=== PATIENT | male | born 1945 | race Caucasian/White ===

== ENCOUNTER 2022-05-09 11:17 | Outpatient (CLI) | payer OTHER, SELFPAY ==
--- OUTSIDE RECORDS SUMMARY | 2022-05-21 11:06 | XMS_ITS | Continuity of Care Document ---
:1945 Author Organization [facility] Care Team Providers Name Role Phone [facility] Unavailable Unavailable Problems Combined list of problems from Department of Defense and Veterans Affairs facilities. It does not include entries that were removed or entered in error. Problem Status Onset Problem Type Date of Comments Source Date Resolution Anemia Active [place] [facility] Asthma (SNOMED CT [place] [id number][place] [facility] Carcinoma of bladder Active Condition [facility] Congestive heart Active Condition [place] failure [facility] CVA - Active Condition Dec 31, [place] Cerebrovascular 2021 Entered [facility] accident By: CED EPSTEIN Comment: 11/2020, outside hospital. 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 without [facility] Urinary obstruction (ICD-9-CM 600.00) Obesity * (ICD-9-CM Active Condition Sep 09, [place] 278.00) 2012 Entered [facility] By: SAMMY ALEGRIA Comment: 10 TOPIC [address]AD 07-09-2012* 244.0 --> 09-17-12* 243.2 lbs Obstructive sleep Active [place] apnea (SNOMED CT [facility] 84347958) Rosacea Active [place] [facility] Tinnitus * (ICD-9-CM Active Condition [place] 388.30) [facility] Type 2 diabetes Active Condition [place] mellitus (SNOMED CT [facility] 56135918) Umbilical hernia Active Condition [place] (SNOMED CT [facility] 986748338) Diagnosis: ICD-10-CM active Diagnosis [place] Z71.89 Other [facility] specified counselingwith Provider Comments: Other specified Counseling Diagnosis: ICD-10-CM active Diagnosis [place] R53.1 Weaknesswith V A H[facility] Provider Comments: Weakness Diagnosis: ICD-10-CM active Diagnosis [place] Z95.818 Presence of [facility] other cardiac implants and graftswith Provider Comments: Presence of other cardiac implants and grafts Diagnosis: ICD-10-CM active Diagnosis [place] I63.9 Cerebral [facility] infarction, unspecifiedwith Provider Comments: Cerebral infarction Diagnosis: ICD-10-CM active Diagnosis [place] M62.81 Muscle [facility] weakness (generalized)with Provider Comments: Muscle Weakness (Generalized) Diagnosis: ICD-10-CM active Diagnosis [place] I63.9 Cerebral [facility] infarction, unspecifiedwith Provider Comments: CVA - Cerebrovascular accident ([facility] [id number]) Diagnosis: ICD-10-CM active Diagnosis [place] R13.10 Dysphagia, [facility] unspecifiedwith Provider Comments: Dysphagia, unspecified Diagnosis: ICD-10-CM active Diagnosis [place] E11.8 Type 2 [facility] diabetes mellitus with unspecified complicationswith Provider Comments: Type 2 diabetes mellitus ([facility] [id number]) Diagnosis: ICD-10-CM active Diagnosis [place] K08.531 Fractured [facility] dental restorative material with loss of materialwith Provider Comments: Fractured dental restorative material with loss of material Diagnosis: ICD-10-CM active Diagnosis [place] K02.52 Dental caries [facility] on pit and fissure surfc penetrat into dentinwith Provider Comments: Dental caries on pit and fissure surface penetrating into dentin Diagnosis: ICD-10-CM active Diagnosis [place] E11.65 Type 2 [facility] diabetes mellitus with hyperglycemiawith Provider Comments: Type 2 Diabetes Mellitus with Hyperglycemia Diagnosis: ICD-10-CM active Diagnosis [place] Z71.3 Dietary [facility] counseling and surveillancewith Provider Comments: Dietary counseling and surveillance Diagnosis: ICD-10-CM active Diagnosis [place] Z23 Encounter for [facility] immunizationwith Provider Comments: Encounter for Immunization (ICD-10-CM Z23.) Diagnosis: ICD-10-CM active Diagnosis [place] 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 Provider Comments: Type 2 Diabetes Mellitus with Diabetic Nephropathy Diagnosis: ICD-10-CM active Diagnosis [place] H90.3 Sensorineural [facility] hearing loss, bilateralwith Provider Comments: Sensorineural hearing loss, bilateral Diagnosis: ICD-10-CM active Diagnosis [place] E11.8 Type 2 [facility] diabetes mellitus with unspecified complicationswith Provider Comments: Type 2 diabetes mellitus with unspecified complications (ICD-10-CM E11.8) Diagnosis: ICD-10-CM active Diagnosis [place] I50.9 Heart failure, [facility] unspecifiedwith Provider Comments: Congestive heart failure (SNOMED CT 09414466) Medications Combined list of outpatient medications from Department of Defense and Veterans Affairs facilities. Medications provided include 1) outpatient medications from the last 15 months, and 2) patient-reported medications. Medication Details Route Status Patient Prescription Prescription Last Ordering Order Source Instructions Expires Number Dispense Provider Date Date ATORVASTATI TAKE ONE ORALLY DISCONT 06/15/2022 [id number] STOCK,TYS 06/14/ [place] 80MG TABLET INUED 2 ON 2020 [facility] TAB BY [facility]TH [facility] AT BEDTIME FOR CHOLESTE ROL ATORVASTATI TAKE ONE ORALLY 05/11/2021 [id number] SONG 05/10/ [place] 80MG TABLET 1 ,2019 [facility] TAB [facility] AT BEDTIME FOR CHOLESTE ROL BUDESONIDE INHALE 2 INHALA 2021 [id number] [facility] 07/06/ [place] 160MCG/FORM PUFFS BY TION 1 ,2019 [facility] OTEROL FUM INHALATI HCS 4.5MCG/SPRA ON TWICE Y A DAY INHL,ORAL,1 FOR 0.2GM ASTHMA, TO PREVENT TROUBLE BREATHIN G -RINSE MOUTH AFTER USING CLOPIDOGREL TAKE ONE ORALLY DISCONT 09/01/2022 [id number] STOCK,TYS 08/31/ [place] BISULFATE TABLET INUED 2 ON 2020 [facility] 75MG TAB BY MOUTH HCS EVERY DAY INDEFINI TELY TO PREVENT BLOOD CLOTS and STROKE CLOPIDOGREL TAKE ONE ORALLY 08/03/2021 [id number] [place] 08/04/ [place] BISULFATE TABLET 1 ,2019 [facility] 75MG TAB BY MOUTH HCS EVERY DAY INDEFINI TELY TO PREVENT BLOOD CLOTS and STROKE EMPAGLIFLOZ TAKE ONE ORALLY DISCONT 07/18/2022 [id number] STOCK,TYS 07/19/ [place] IN 25MG TAB TABLET INUED 2 ON 2020 [facility] BY MOUTH [facility] EVERY DAY EMPAGLIFLOZ TAKE ORALLY DISCONT 05/16/2022 [id number] ANKIR ABRAN 05/16/ [place] IN 25MG TAB ONE-HALF INUED 1 PALLI,ANV 2020 [facility] TABLET (EDIT) ITHA R HCS BY MOUTH EVERY DAY ESCITALOPRA TAKE ONE ORALLY DISCONT 06/15/2022 [id number] STOCK,TYS 06/14/ [place] OXALATE TABLET INUED 1 ON 2020 [facility] [facility] 10MG TAB BY MOUTH HCS EVERY DAY FOR MOOD ESCITALOPRA TAKE ONE ORALLY DISCONT 06/27/2021 [id number] SONG 06/27/ [place] OXALATE TABLET INUE 1 ,[place] 2019 [facility] 10MG TAB BY MOUTH HCS EVERY DAY FOR MOOD GLUCOSE 4GM CHEW ORALLY DISCONT 07/10/2022 [id number] STOCK ,TYS 07/11/ [place] TAB,CHEW FOUR INUED 1 ON 2020 [facility] TABLETS HCS BY MOUTH NEEDED FOR LOW BLOOD SUGAR INDOMETHACI TAKE ONE ORALLY DISCONT 09/01/2022 [id number] STOCK,TYS 09/04/ [place] 25MG CAP TO TWO INUED 1 ON 2020 [facility] CAPSULES H[facility] BY MOUTH THREE TIMES A DAY NEEDED GOUT EXACERBA TION INSULIN,ASP INJECT SUBCUT DISCONT 05/19/2022 [id number] AN KIREDDY 06/23/ [place] ART,HUMAN 10 UNITS ANEOUS INUED 2 PALLI,ANV 2020 [facility] 100U/ML,NOV UNDER ITHA R HCS OLOG,FLEXPE THE SKIN N,3ML THREE TIMES A DAY BEFORE MEALS INJECT IMMEDIAT TAWANDA BEFORE MEAL AND AT BEDTIME INJECT 1 UNIT IF BG BETWEEN 250-300 INJECT 2 UNITS IF BG BETWEEN 301-350 INJECT 3 UNITS IF BG BETWEEN 351-400 INJECT 4 UNITS IF BG BETWEEN 400-450, DONT TAKE MORE THAN 4 UNITS AT BEDTIME FOR DIABETES INJECT IMMEDIAT TAWANDA BEFORE MEAL AND AT BEDTIME INJECT 1 UNIT IF BG BETWEEN 250-300 INJECT 2 UNITS IF BG BETWEEN 301-350 INJECT 3 UNITS IF BG BETWEEN 351-400 INJECT 4 UNITS IF BG BETWEEN 400-450, DONT TAKE MORE THAN 4 UNITS AT BEDTIME FOR DIABETES INSULIN,ASP INJECT SUBCUT DISCONT 11/17/2021 [id number] S TOCK,TYS 01/16/ [place] ART,HUMAN 10 UNITS ANEOUS INUE 1 ON W 2020 [facility] A 100U/ML,NOV UNDER HCS OLOG,FLEXPE THE SKIN N,3ML BEFORE MEALS WITH SNACKS *TAKE ONLY WITH FOOD INTAKE* INSULIN,GLA INJECT SUBCUT DISCONT 11/23/2022 [id number] S TOCK,TYS 11/23/ [place] RGINE,HUMAN 28 UNITS ANEOUS INUED 2 ON 2021 [facility] [facility] 100 UNIT/ML UNDER HCS INJ,SOLOSTA THE SKIN R,3ML AT BEDTIME *DO NOT MIX WITH OTHER INSULINS INSULIN,GLA INJECT SUBCUT DISCONT 11/17/[id number] OCK,TYS 11/17/ [place] RGINE,HUMAN 28 UNITS ANEOUS INUE 1 ON W 2020 [facility] 100 UNIT/ML UNDER HCS INJ,SOLOSTA THE SKIN R,3ML AT BEDTIME *DO NOT MIX WITH OTHER INSULINS ISOSORBIDE TAKE ONE ORALLY DISCONT 05/11/2021 [id number] S [place] 05/10/ [place] MONONITRATE TABLET INUED 1 ,[place] 2019 [place] [facility] 60MG TAB,SA BY MOUTH HCS EVERY MORNING LEVOTHYROXI TAKE ONE ORALLY DISCONT 03/22/2022 [id number] STOCK,TYS 03/22/ [place] NA TABLET INUED 2 ON 2020 [facility] 100MCG TAB BY MOUTH HCS (SYNTHROID) EVERY DAY FOR THYROID LOSARTAN TAKE ONE ORALLY DISCONT 11/13/2022 [id number] STO CK,TYS 11/13/ [place] 50MG TAB TABLET INUED 2 ON 2021 [place] [facility] BY MOUTH [facility]CS EVERY DAY LOSARTAN TAKE ORALLY DISCONT 03/22/2022 [id number] STOCK,TY S 03/22/ [place] 50MG TAB ONE-HALF INUED 2 ON 2020 [place] [facility] TABLET (EDIT) HCS BY MOUTH EVERY DAY METFORMIN TAKE TWO ORALLY DISCONT 04/04/2022 [id number] FE RNANDES 04/04/ [place] HCL 500MG TABLETS INUED 1 -EDITA,AN 2020 [place] [facility] 24HR TAB,SA BY MOUTH DYROSE HCS EVERY MORNING FOR DIABETES METFORMIN TAKE ONE ORALLY DISCONT 03/01/2022 [id number] FE RNANDES 02/28/ [place] HCL 500MG TABLET INUED 1 -EDITA,AN 2020 [facility] [facility] 24HR TAB,SA BY MOUTH DYROSE HCS EVERY DAY FOR 7 DAYS, THEN TAKE TWO TABLETS EVERY DAY FOR DIABETES METOPROLOL TAKE ORALLY DISCONT 03/01/2022 [id number] STOCK, TYS 02/28/ [place] SUCCINATE ONE-HALF INUED 2 ON W 2020 [place] [facility] 50MG TAB,SA TABLET HCS BY MOUTH EVERY DAY FOR HEART FAILURE AND BLOOD PRESSURE SEMAGLUTIDE INJECT SUBCUT DISCONT 11/21/2022 [id number] SI BLEY,SH 11/22/ [place] 0.5MG/0.375 0.25MG ANEOUS INUED 2 ALAMAR D 2021 [facility] ML UNDER HCS INJ,SOLN,PE THE SKIN N,1.5ML EVERY WEEK FOR 4 WEEKS, THEN INJECT 0.5MG EVERY WEEK FOR WEIGHT AND TYPE 2 DIABETES TORSEMIDE TAKE ONE ORALLY DISCONT 11/13/[id number] OCK,TYS 11/14/ [place] 20MG TAB TABLET INUED 2 ON 2021 [facility] BY MOUTH [facility] EVERY MORNING FOR SWELLING TORSEMIDE TAKE TWO ORALLY DISCONT 03/22/[id number] OCK,TYS 03/22/ [place] 20MG TAB TABLETS INUED 2 ON 2020 [facility] BY MOUTH (EDIT) HCS TWICE A DAY FOR SWELLING *TAKE IN MORNING AND AT NOON* TORSEMIDE TAKE TWO ORALLY DISCONT 06/14/[id number] [place] 06/14/ [place] 20MG TAB TABLETS INUED 1 ,[place] 2019 [facility] BY MOUTH (EDIT) HCS EVERY MORNING FOR EDEMA/SW ELLING TRAZODONE TAKE ONE ORALLY DISCONT 06/14/[id number] [place] 06/14/ [place] HCL 100MG TABLET INUED 1 ,[place] 2019 [facility] TAB BY MOUTH H[facility] EVERY EVENING NEEDED FOR SLEEP TRAZODONE TAKE ONE ORALLY DISCONT 09/01/[id number] OCK,TYS 08/31/ [place] HCL 50MG TABLET INUED 1 ON W 2020 [facility] TAB BY MOUTH HCS AT BEDTIME NEEDED FOR SLEEP TRAZODONE TAKE ONE ORALLY DISCONT 07/18/[id number] OCK,TYS 07/18/ [place] HCL 50MG TABLET INUE 1 ON W 2020 [facility] TAB BY MOUTH HCS AT BEDTIME NEEDED FOR SLEEP Allergies, Adverse Reactions, Alerts Combined list of allergies from Department of Defense and Veterans Affairs facilities. It does not include entries that were removed or entered in error. Substance Category Reaction Severity Reaction Status Date Comments S ource type Reported AMLODIPINE Propensity Feeling Propensity active [place] to adverse faint, to adverse 8 [facility] reactions Nausea reactions HCS to drug to drug (finding) (finding) DOXYCYCLINE Propensity Bleeding Propensity active [place] to adverse skin to adverse 0 [facility] reactions reactions HCS to drug to drug (finding) (finding) DOXYCYCLINE Propensity Bleeding Propensity active [place] [facility] to adverse skin to adverse 7 [facility] reactions reactions [facility] to drug to drug CENTER (finding) (finding) LISINOPRIL Propensity Cough Propensity active [place] to adverse to adverse 7 [place] [facility] reactions reactions [facility] to drug to drug CENTER (finding) (finding) PENICILLIN Propensity Eruption Propensity active [place] to adverse to adverse 7 [place] reactions reactions [facility] to drug to drug CENTER (finding) (finding) SULFA DRUGS Propensity Anaphylaxi Propensity active [place] to adverse s to adverse 7 [place] reactions reactions [facility] [place] to drug to drug CENTER (finding) (finding) Immunizations Combined list of available immunizations from the Department of Defense and Veterans Affairs facilities. Immunization Series Date Administered Site Reaction Lot CVX Drug St atus Comments Source Given By Number Code Skinning Machine Feeder INFLUENZA, complet [place] INJECTABLE, 2020 ed [facility] QUADRIVALENT, HCS PRESERVATIVE FREE COVID-19 2 complet [place] (MODERNA), 2020 ed [facility] MRNA, LNP-S, H CS PF, 100 MCG/0.5 ML DOSE COVID-19 1 complet [place] (MODERNA), 2020 ed [facility] MRNA, LNP-S, H CS PF, 100 MCG/0.5 ML DOSE ZOSTER 2 complet [place] RECOMBINANT 2019 ed [facility] INFLUENZA, complet [place] INJECTABLE, 2019 ed [facility] QUADRIVALENT, HCS PRESERVATIVE FREE ZOSTER 1 complet [place] RECOMBINANT 2019 ed [facility] INFLUENZA, complet [place] SEASONAL, 2018 ed [facility] INJECTABLE, HC S PRESERVATIVE FREE INFLUENZA, complet [place] SEASONAL, 2017 ed [facility] INJECTABLE, HC S PRESERVATIVE FREE INFLUENZA, complet [place] HIGH DOSE 2016 ed [facility] SEASONAL [facility] INFLUENZA, complet [place] HIGH DOSE 2015 ed [facility] SEASONAL [facility] PNEUMOCOCCAL complet Wy[facility] h [place] CONJUGATE PCV 2014 ed [id number] [facility] 13 exp12/13 HCS INFLUENZA, complet [place] HIGH DOSE 2014 ed [facility] SEASONAL [facility] INFLUENZA, complet [place] UNSPECIFIED 2013 ed [facility] FORMULATION [facility] S TDAP complet GlaxoSmit M [place] 2013 ed hKline, [facility] A [id number], HCS 02/27/16. INFLUENZA, complet [place] UNSPECIFIED 2012 ed [facility]ATION [facility] PNEUMOCOCCAL, 02/04/ FREDERICK,CIND 109 com plet [place] UNSPECIFIED 2012 Y ed [facility] FORM[facility]ATION [facility] ZOSTER LIVE complet merck and [place] 2011 ed co. [facility] [id number] HCS 09/17/13 INFLUENZA, complet [place] UNSPECIFIED 2011 ed [facility]ATION [facility] INFLUENZA, complet [place] UNSPECIFIED 2010 ed [facility] INFLUENZA, complet [place] UNSPECIFIED 2009 ed [facility] FORM[facility]ATION [facility] NOVEL complet [employer] [facility] [place] INFLUENZA-H1N 2009 ed [facility] 10-07, ALL HCS FORMULATIONS INFLUENZA, complet [place] UNSPECIFIED 2008 ed [facility] FORMULATION [facility] PNEUMOCOCCAL, complet [place] UNSPECIFIED 2006 ed [facility] FORM[facility]ATION [facility] INFLUENZA, complet [place] UNSPECIFIED 2006 ed [facility] FORMULATION [facility] TD(ADULT) 03/17/ ESTEVAN,LOPEZ 139 complet [place] UNSPECIFIED 2006 CAMELIA L ed O [facility] FORMULATION HC S INFLUENZA complet [place] (HISTORICAL) 2005 ed O [facility] INFLUENZA complet [place] (HISTORICAL) 2005 ed O [facility] HCS Results Combined list of recent chemistry, hematology and other laboratory results from Department of Defense and Veterans Affairs, ranging from 15 months to all on record, depending upon the facility. Order Results Value Reference Date Interpretation Specimen Commen ts Source Name Range COVID-19 SARS-RELAT DETECTED 11/30 HH Specimen Ty pe: NASOPHARYNGEAL [place] AND ED /2021 Comment: Cephei d GeneXpert (618) IS [facility] FLU/RSV CORONAVIRU Ordering Pro vider: SAHARA CEVALLOS S RNA Report Released Date/Time: Nov 28, 2021 09:05 AM PANEL(CE [PRESENCE] Reporting L ab: [facility] PHEID) IN [address] [facility] [address] RESPIRATOR Performing L ab: [facility] Y SPECIMEN [facility] [address] BY JAYLAN WITH PROBE DETECTION COVID-19 INFLUENZA Not 11/30 Specimen Type : NASOPHARYNGEAL [place] AND VIRUS A Detected /2021 Comment: Cephe id GeneXpert (618) IS [facility] FLU/RSV RNA Ordering Provid er: SAHARA CEVALLOS [PRESENCE] Report Relea sed Date/Time: Nov 28, 2021 09:05 AM PANEL(CE IN UPPER Reporting Lab : [facility] PHEID) RESPIRATOR [facility] [address] Y SPECIMEN Performing L ab: [facility] BY JAYLAN [facility] [address] WITH PROBE DETECTION COVID-19 INFLUENZA Not 11/30 Specimen Type : NASOPHARYNGEAL [place] AND VIRUS B Detected /2021 Comment: [place]ep[place] GeneXpert (618) IS [facility] FLU/RSV RNA Ordering Provid er: SAHARA CEVALLOS [PRESENCE] Report Relea sed Date/Time: Nov 28, 2021 09:05 AM PANEL(CE IN UPPER Reporting Lab : [facility] PHEID) RESPIRATOR [facility] [address] Y SPECIMEN Performing L ab: [facility] BY JAYLAN ONE [facility] [address] WITH PROBE DETECTION COVID-19 RESPIRATOR Not 03/04 Specimen Typ e: NASOPHARYNGEAL [place] AND Y Detected /2021 Comment: [facility]ep[place] [facility] GeneXpert (618) IS [facility] FLU/RSV SYNCYTIAL Ordering Prov ider: SAHARA CEAVLLOS VIRUS RNA Report Releas ed Date/Time: Nov 28, 2021 09:05 AM PANEL(CE [PRESENCE] Reporting L ab: [facility] PHEID) IN UPPER [address] [facility] [address] RESPIRATOR Performing L ab: [facility] Y SPECIMEN [address] [facility] [address] BY JAYLAN WITH PROBE DETECTION HEMOGLOB HEMOGLOBIN 10.2 4.0 - 6.0 10/11 H Specimen T ype: BLOOD [place] IN A1C A1C/HEMOGL /2021 No comment en tered. IS [facility] OBIN.TOTAL Ordering Pro vider: LONA PALACIO IN BLOOD Report Release d Date/Time: Jun 14, 2021 10:16 AM Reporting Lab: [facility] [address] [facility] [address] Performing Lab: [facility] [address] [facility] [address] MICROALB CREATININE 19.5 58.0 - 06/14 L Specimen Typ e: URINE [place] UMIN/CRE [MASS/VOLU 161.0 No comment e ntered. IS [facility] ATININE ME] IN Ordering Provid er: LONA PALACIO URINE Report Released Date/Time: Jun 14, 2021 10:15 AM URINE Reporting Lab: [facility] [address] [facility] [address] Performing Lab: [facility] [address] [facility] [address] MICROALB MICROALBUM 324.6 <29.9 - 06/14 H Specimen Typ e: URINE [place] UMIN/CRE IN/CREATIN 29.9 No comment e ntered. IS [facility] ATININE INE [MASS Ordering Prov ider: LONA PALACIO RATIO RATIO] IN Report Releas ed Date/Time: Jun 14, 2021 10:15 AM URINE URINE Reporting Lab: [facility] [address] [facility] [address] Performing Lab: [facility] [address] [facility] [address] MICROALB MICROALBUM 63.3 <29.9 - 06/14 H Specimen Typ e: URINE [place] UMIN/CRE IN . No comment ente red. IS [facility] ATININE [MASS/VOLU Ordering Pro vider: LONA PALACIO RATIO ME] IN Report Released Date/Time: Jun 14, 2021 10:15 AM URINE URINE Reporting Lab: [facility] [place] [address] Performing Lab: [facility] [address] [facility] [address] C-PEPTID C PEPTIDE 2.40 0.80 - 06/14 Specimen Type : SERUM [place] E [MASS/VOLU 3.85 /2020 Comment: Alba t Performed by [place] [facility], Useful at Night [facility], [address] [place] [address] Jf Crum M.D., Ph.D., Director of Laboratories , [facility] [id number] [facility] ME] IN Ordering Provid er: LONA PALACIO SERUM OR Report Release d Date/Time: Jun 14, 2021 10:15 AM PLASMA Reporting Lab: [facility] [address] [facility] [address] Performing Lab: [address] HEMOGLOB HEMOGLOBIN 10.2 4.0 - 6.0 06/14 H Specimen T ype: BLOOD [place] IN A1C A1C/HEMOGL No comment en tered. IS [facility] OBIN.TOTAL Ordering Pro vider: LONA PALACIO IN BLOOD Report Release d Date/Time: Jun 14, 2021 10:15 AM Reporting Lab: [facility] [place] [address] Performing Lab: [facility] [place] [address] LIPID CHOLESTERO 127 <199 - 199 06/14 Specimen T ype: PLASMA [place] PANEL,NO L /2020 No comment ente red. IS [facility] N-FASTIN [MASS/VOLU Ordering Pr ovider: LONA PALACIO G ME] IN Report Released Date/Time: Jun 14, 2021 10:15 AM SERUM OR Reporting Lab: [place] [facility] PLAS[facility] [place] [address] Performing Lab: [facility] [address] [facility] [address] LIPID CHOLESTERO 28 40 06/14 L Specimen Type : PLASMA [place] PANEL,NO L IN HDL /2020 No comment ent ered. IS [facility] N-FASTIN [MASS/VOLU Ordering Pr ovider: LONA PALACIO] IN Report Released Date/Time: Jun 14, 2021 10:15 AM SERUM OR Reporting Lab: [facility] PLASMA [address] [facility] [address] Performing Lab: [facility] [address] [facility] [address] LIPID CHOLESTERO 65 <99 - 99 06/14 Specimen Typ e: PLASMA [place] PANEL,NO L IN LDL /2020 No comment ent ered. IS [facility] N-FASTIN [MASS/VOLU Ordering Pr ovider: LONA PALACIO] IN Report Released Date/Time: Jun 14, 2021 10:15 AM SERUM OR Reporting Lab: [facility] PLASMA BY [address] [facility] [address] CALCULATIO Performing L ab: [facility] N [address] [facility] [address] LIPID CHOLESTERO 34 <29 - 29 06/14 H Specimen Typ e: PLASMA [place] PANEL,NO L IN VLDL /2020 No comment en tered. IS [facility] N-FASTIN [MASS/VOLU Ordering Pr ovider: LONA PALACIO] IN Report Released Date/Time: Jun 14, 2021 10:15 AM SERUM OR Reporting Lab: [facility] PLASMA BY [address] [facility] [address] CALCULATIO Performing L ab: [facility] N [address] [facility] [address] LIPID CHOLESTERO 99 <129 - 129 06/14 Specimen T ype: PLASMA [place] PANEL,NO L NON HDL /2020 No comment en tered. IS [facility] N-FASTIN [MASS/VOLU Ordering Pr ovider: LONA PALACIO] IN Report Released Date/Time: Jun 14, 2021 10:15 AM SERUM OR Reporting Lab: [facility] PLASMA [address] [place] [address] Performing Lab: [facility] [place] [address] LIPID TRIGLYCERI 172 <149 - 149 06/14 H Specimen T ype: PLASMA [place] PANEL,NO [place] /2020 No comment ente red. IS [facility] N-FASTIN [MASS/VOLU Ordering Pr ovider: LONA PALACIO G ME] IN Report Released Date/Time: Jun 14, 2021 10:15 AM SERUM OR Reporting Lab: [facility] PLASMA [place] [address] Performing Lab: [facility] [address] [facility] [address] TSH THYROTROPI 3.83 0.35 - 06/14 Specimen Type : PLASMA [place] W/REFLEX N 4.94 /2020 No comment ente red. IS [facility] TO FREE [UNITS/VOL Ordering Pro vider: LONA PALACIO T4 UME] IN Report Released Date/Time: Jun 14, 2021 10:15 AM SERUM OR Reporting Lab: [facility] PLASMA [address] [place] [address] Performing Lab: [facility] [address] [facility] [address] GLUCOSE GLUCOSE 292 74 - 100 06/14 H Specimen Type: PLASMA [place] [MASS/VOLU /2020 No comment en tered. IS [facility] ME] IN Ordering Provid er: LONA PALACIO SERUM OR Report Release d Date/Time: Jun 14, 2021 04:36 PM PLASMA Reporting Lab: [facility] [address] [place] [facility] [address] Performing Lab: [facility] [address] [place] [address] CREATINI CREATININE 1.6 0.7 - 1.2 01/16 H Specimen T ype: PLASMA [place] NE(INCLU [MASS/VOLU /2020 No comment e ntered. IS [facility] [place]] IN Ordering Provid er: MITCHELL-EDITAANDXIOMY EGFR) SERUM OR Report Release d Date/Time: Jan 16, 2021 10:53 AM PLASMA Reporting Lab: [facility] [address] [place] [facility] [address] Performing Lab: [facility] [address] [place] [facility] [address] CREATINI GLOMERULA 42 60 04/20 L Specimen Typ e: PLASMA [place] NE(INCLU R /2020 No comment ente red. IS [facility] [place] FILTRATION Ordering Pro vider: VICKI KILLIAN EGFR) RATE/1.73 Report Releas ed Date/Time: Jan 16, 2021 10:53 AM SQ Reporting Lab: [facility] [place] [address] [facility] [address] D [VOLUME Performing La b: [facility] RATE/AREA] [address] [facility] [address] IN SERUM, PLASMA OR BLOOD BY CREATININE -BASED FORMULA (CKD-EPI) HEMOGLOB HEMOGLOBIN 8.3 4.0 - 6.0 01/16 H Specimen T ype: BLOOD [place] IN A1C A1C/HEM /2020 No comment en tered. IS [facility] [place].TOTAL Ordering Pro vider: VICKI KILLIAN IN BLOOD Report Release d Date/Time: Jan 16, 2021 10:53 AM Reporting Lab: [facility] [address] [place] [facility] [address] Performing Lab: [facility] [address] [place] [facility] [address] Vital Signs Combined list of inpatient and outpatient Vital Signs from Department of Defense and Veterans Affairs, ranging from 12 months to all on record, depending upon the facility. Vital Sign Value Date Comments Source SYSTOLIC BLOOD PRESSURE 142 12/21/2021 10:36:23 [facility] DIASTOLIC BLOOD PRESSURE 69 12/21/2021 10:36:23 [facility] TEMPERATURE 97.7 12/21/2021 10:36:23 [facility] PULSE 52 12/21/2021 10:36:23 [place] [facility] SYSTOLIC BLOOD PRESSURE 137 10/11/2021 09:26:36 [facility] DIASTOLIC BLOOD PRESSURE 71 10/11/2021 09:26:36 [facility] PULSE OXIMETRY 97% 10/11/2021 09:26:36 [place] [facility] WEIGHT 214 10/11/2021 09:26:36 [place] [facility] BMI 27kg/m2 10/11/2021 09:26:36 [place] [facility] PAIN 0 10/11/2021 09:26:36 [place] [facility] TEMPERATURE 98.8 10/11/2021 09:26:36 [place] [facility] PULSE 55 10/11/2021 09:26:36 [place] [facility] RESPIRATION 16 10/11/2021 09:26:36 [place] [facility] WEIGHT 222.2 07/03/2021 11:00:00 [place] [facility] BMI 28kg/m2 07/03/2021 11:00:00 [place] [facility] SYSTOLIC BLOOD PRESSURE 130 06/14/2021 09:37:22 [place] [facility] DIASTOLIC BLOOD PRESSURE 69 06/14/2021 09:37:22 [facility] PULSE OXIMETRY 95% 06/14/2021 09:37:22 [place] [facility] WEIGHT 218.6 06/14/2021 09:37:22 [place] [facility] BMI 28kg/m2 06/14/2021 09:37:22 [place] [facility] PAIN 0 06/14/2021 09:37:22 [place] [facility] TEMPERATURE 97.6 06/14/2021 09:37:22 [place] [facility] PULSE 55 06/14/2021 09:37:22 [place] [facility] RESPIRATION 18 06/14/2021 09:37:22 [place] [facility] Encounters Combined list of: 1) Encounters from Department of Veterans Affairs facilities going back up to the last 18 months, not all VA inpatient encounters are included; 2) Encounters from the Department of Defense facilities going back up to 280 months. Location Location Encounter Encounter Reason Attending ADM DC Stat us Disposition Source Details Type Number For Provider Date Date Visit HC PRO 39374-6.61 Diagnos STEPHEN- 11/22 [place] PHONE CALL [id number] is: JAJA KOHLER [facility] 21-30 MIN ICD-10- [facility] CM E11.8 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< br/>wit h Provide r Comment s: Type 2 diabete s mellitu s (SCT [id number] 6) Outpatient 10581-1.61 11/27 [place] Encounter [id number] [facility] Outpatient 81281-6.61 LUCIANTYCHANTALE 11/28 [place] Encounter [id number] N [facility] HC PRO 67645-4.61 Diagnos MITCHELL- 11/30 [place] PHONE CALL [phone] is: EDITA, [facility] 21-30 MIN ICD-10- [facility] CM E11.8 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< br/>wit h Provide r Comment s: Type 2 diabete s mellitu s (SCT [id number] 6) Outpatient 49965-6.61 03/11 [place] Encounter [id number] /2020 [facility] 55198-6.61 03/16 [place] En[place] [id number] /2020 [facility] HC PRO 98060-3.61 Diagnos MITCHELL- 12/15 [place] PHONE CALL [phone] is: EDITA, [facility] 21-30 MIN ICD-10- [facility] CM E11.8 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< br/>wit h Provide r Comment s: Type 2 diabete s mellitu s (SCT [id number] 6) Outpatient 40199-2.61 03/30 [place] En[place] [id number] /2020 [facility] Out[facility] 82126-6.61 03/31 [place] Encounter [id number] /2020 [place] [address]-1.61 Diagnos Fidencio ARANDA 12/28 [place] PHARM ADDL [id number] is: HALEY D [facility] 15 MIN ICD-10- HCS CM E11.8 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< br/>wit h Provide r Comment s: Type 2 diabete s mellitu s (SCT [id number] 6) CONT GLUC 23423-5.61 Diagnos MITCHELL- 01/16 [place] MNTR [id number] is: EDITA, [facility] PHYS/QHP ICD-10- [facility] EQP CM E11.8 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< br/>wit h Provide r Comment s: Type 2 diabete s mellitu s (SCT [id number] 6) HEARING 98187-0.61 Diagnos Juana LYNNE 01/29 [place] AID EXAM [id number] is: JANINA LANG [facility] BOTH EARS ICD-10- HCS CM H90.3 Sensori neural hearing loss, bilater al
with Provide r Comment s: Sensori neural hearing loss, bilater al OFFICE O/P 61936-3.61 Diagnos JOSE D DAVILA 02/01 [place] EST HI [id number] is: SEY R /2020 [facility] 40-54 MIN ICD-10- H[facility] CM E11.8 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< br/>wit h Provide r Comment s: Type 2 diabete s mellitu s (SCT [id number] 6) Outpatient 14366-0 05/ [place] Encounter [id number] /2021 [facility] HC PRO 69625-1 Diagnos MITCHELL- 02/22 [place] PHONE CALL [id number] is: EDITA,MIKAELA [facility] 21-30 MIN ICD-10- [facility] CM E11.8 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< br/>wit h Provide r Comment s: Type 2 diabete s mellitu s (SCT [id number] 6) Outpatient 71841-3 06/01 [place] Encounter [id number] [facility] OFFICE O/P Diagnos JOSE D DAVILA 03/01 [place] EST HI [id number] is: Y R [facility] 40-54 MIN ICD-10- HCS CM E11.8 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< br/>wit h Provide r Comment s: Type 2 diabete s mellitu s (SCT [id number] 6) Outpatient 26271-6.61 06/04 [place] En[place] [id number] /2021 [facility] 76384-7. 06/10 [place] En[place] [id number] /2021 [facility] 28837-9.61 06/14 [place] En[place] [id number] [facility] 15073-9.61 06/17 [place] En[place] [id number] [facility] Outpatient 36129-503/19 [place] Encounter [id number] /2020 [facility] OFFICE O/P Diagnos CONOR EPSTEIN 03/21 [place] EST MOD [id number] is: N W [facility] 30-39 MIN ICD-10- HCS CM I50.9 Heart failure , unspeci fied
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 (ICD-10 -CM E11.8) HC PRO 86326-6 Diagnos MITCHELL- 04/03 [place] PHONE CALL [phone] is: EDITA,MIKAELA [facility] 21-30 MIN ICD-10- [facility] CM E11.8 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< br/>wit h Provide r Comment s: Type 2 diabete s mellitu s (SCT [id number] 6) HC PRO Diagnos MITCHELL- 04/18 [place] PHONE CALL [phone] is: EDITA,MIKAELA [facility] 21-30 MIN ICD-10- [facility] CM E11.8 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< br/>wit h Provide r Comment s: Type 2 diabete s mellitu s (SCT [id number] 6) Outpatient 93128-604/19 [place] En[place] [id number] [facility] Outpatient 74787-004/19 [place] Encounter [id number] /2021 [facility] SELF-MGMT 79228-6.61 Diagnos SAHARA,LATANYA 05/14 [place] EDUC & [id number] is: AEL F [facility] TRAIN 1 PT ICD-10- HCS CM H90.3 Sensori neural hearing loss, bilater al
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
with Provide r Comment s: Type 2 Diabete s Mellitu s with Diabeti c Nephrop athy MEDICAL 06816-561 Diagnos DAVID TO 07/03 [place] NUTRITION [id number] is: RLY K [facility] INDIV IN ICD-10- HCS CM Z71.3 Dietary job placement counselor ing and surveil rosalba<b r/>with Provide r Comment s: Dietary job placement counselor ing and surveil rosalba IMMUNIZATI 05897-661 Diagnos DAVID TO 07/03 [place] ON ADMIN [id number] is: RLY K [facility] A ICD-10- HCS CM Z23 Encount er for immuniz ation<b r/>with Provide r Comment s: Encount er for Immuniz ation (ICD-10 -CM Z23.) Outpatient 27448-3.61 10/ [place] En[place] [id number] [facility] 79012-6.61 07/17 [place] Encounter [id number] /[facility] [address]-4.61 Diagnos BALDO, 07/17 [place] DIG [id number] is: LEONOR K /2020 [facility] ASSMT&MGMT ICD-10- HCS 5-10 CM E11.8 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< br/>wit h Provide r Comment s: Type 2 diabete s mellitu s (SCT [id number] 6) Outpatient 91890-2.61 07/19 [place] Encounter [id number] [facility] MED 57855-8.61 Diagnos JIM TOBE 08/14 [place] NUTR[place] [id number] is: RLY K /[facility] INDIV ICD-10- HCS SUBSEQ CM Z71.3 Dietary job placement counselor ing and surveil rosalba<b r/>with Provide r Comment s: Dietary job placement counselor ing and surveil rosalba ORAL 03289-5.61 Diagnos EGGEBRAATE 08/31 [place] HYGIENE [id number] is: NCLAIRE T /2020 [facility] INSTRUCTIO ICD-10- [facility] N CM K02.52 Dental caries on pit and fissure surfc penetra t into dentin< br/>wit h Provide r Comment s: Dental caries on pit and fissure surface penetra ting into dentin Outpatient 45840-3.61 09/07 [place] Encounter [id number] [facility] Outpatient 67655-7.61 10/10 [place] Encounter [id number] [facility] OFFICE O/P 73174-7.61 Diagnos LAMAR PALACIO 10/11 [place] EST MOD [id number] is: ILANA D /2021 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 HC PRO 73047-7.61 Diagnos OMBERG,RUDDY 10/24 [place] PHONE CALL [id number] is: I M /2021 [facility] 21-30 MIN ICD-10- HCS CM E11.8 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< br/>wit h Provide r Comment s: Type 2 diabete s mellitu s (SCT [id number] 6) Outpatient 95459-7.61 11/09 [place] En[place] [id number] /2021 [facility] Out[facility] 10976-1.61 11/12 [place] En[place] [id number] /2021 [facility] HC PRO 58146-2.61 Diagnos [facility] MARYVALE,RUDDY 11/21 [place] PHONE CALL [id number] is: I M [facility] 5-10 MIN ICD-10- HCS CM E11.8 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< br/>wit h Provide r Comment s: Type 2 diabete s mellitu s (SCT [id number] 6) Outpatient 09095-5.61 11/26 [place] Encounter [id number] /2021 [facility] ADJUNCTIVE 41636-5.61 Diagnos EGGEBRAATE 11/30 [place] PROCEDURE [id number] is: NCLAIRE T /2021 [facility] ICD-10- HCS CM K02.52 Dental caries on pit and fissure surfc penetra t into dentin< br/>wit h Provide r Comment s: Dental caries on pit and fissure surface penetra ting into dentin Outpatient 83671-4.61 12/04 [place] Encounter [id number] /2021 [facility] HC PRO 15636-7.61 [facility] 12[facility]18 [place] PHONE CALL [id number] is: I M /2021 [facility] 11-20 MIN ICD-10- HCS CM E11.8 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< br/>wit h Provide r Comment s: Type 2 diabete s mellitu s (SCT [id number] 6) Outpatient 71554-1.61 12/21 [place] Encounter [id number] [facility] LIMIT ORAL 66349-6.61 Diagnos EGGEBRAATE 12/21 [place] EVAL [id number] is: CLAIRE Reyez T /2021 [facility] PROBLM ICD-10- [facility] FOCUS CM K08.531 Fractur ed dental restora tive materia l with loss of materia l
w ith Provide r Comment s: Fractur ed dental restora tive materia l with loss of materia l Outpatient 24149-4.61 12/27 [place] Encounter [id number] /2021 [facility] Outpatient 79962-1.65 12/28 ST. Encounter [id number] /2021 [facility] Outpatient 93106-0.61 12/31 [place] En[place] [id number] /2021 [facility] Outpatient 20423-8.65 12/31 ST. Encounter [id number] /2021 [facility] Outpatient 01652-1.61 12/31 [place] Encounter [id number] /2021 [facility] Outpatient 38083-9.61 WILDER FLORENCE 12/31 [place] Encounter [id number] THAN C /2021 [facility] Outpatient 50049-2.61 Diagnos Fidencio HENDERSON 12/31 [place] Encounter [id number] is: MAKENNA J /2021 [facility] ICD-10- HCS CM M62.81 Muscle weaknes s (genera lized)< br/>wit h Provide r Comment s: Muscle Weaknes s (Genera lized) Outpatient 60006-6.61 01/01 [place] Encounter [id number] /2021 [facility] Outpatient 14051-9.61 01/02 [place] Encounter [id number] /2021 [facility] Outpatient 51565-2.61 Diagnos Fidencio HENDERSON 01/03 [place] Encounter [id number] is: MAKENNA J /2021 [facility] ICD-10- HCS CM M62.81 Muscle weaknes s (genera lized)< br/>wit h Provide r Comment s: Muscle Weaknes s (Genera lized) CASE 64796-2.61 Diagnos GISELA REBOLLAR 01/04 [place] [facility] [id number] is: EE J /2021 [facility] ICD-10- H[facility] CM E11.8 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< br/>wit h Provide r Comment s: Type 2 diabete s mellitu s ([facility] [id number] 6) Outpatient 75736-8.61 01/09 [place] En[place] [id number] [facility] 00734-7.61 01/10 [place] En[place] [id number] [facility] Out[facility] 41428-6.61 01/17 [place] Encounter [id number] [facility] HC PRO 90901-261 Diagnos SA GERMAN 01/21 [place] PHONE CALL [id number] is: NDRA L /2021 [facility] 5-10 MIN ICD-10- HCS CM I63.9 Cerebra l infarct ion, unspeci fied
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
with Provide r Comment s: Dysphag ia, unspeci fied Outpatient 17012-961 Diagnos Fidencio HENDERSON 01/25 [place] Encounter [id number] is: MAKENNA J /2021 [facility] ICD-10- HCS CM M62.81 Muscle weaknes s (genera lized)< br/>wit h Provide r Comment s: Muscle Weaknes s (Genera lized) Outpatient 43871-7.61 01/30 [place] En[place] [id number] [facility] Outpatient 06812-8.61 02/04 [place] Encounter [id number] /2021 [facility] REM 69236-461 Diagnos GERMAN,SA 02/05 [place]OG [id number] is: NDRA L /2021 [facility] DEV EVAL ICD-10- HCS SCRMS CM I63.9 Cerebra l infarct ion, unspeci fied
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 ICD-10- HCS CM I63.9 Cerebra l infarct ion, unspeci fied
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 Outpatient 42824-8.61 02/07 [place] Encounter [id number] /2021 [facility] Outpatient 24281-0.61 02/12 [place] Encounter [id number] /2021 [facility] Outpatient 33723-9.61 02/18 [place] Encounter [id number] /2021 [facility] Outpatient 42518-6.61 02/19 [place] Encounter [id number] /2021 [facility] Outpatient 38630-8 Diagnos FAPORTER,E 02/19 [place] Encounter [id number] is: MAKENNA J /2021 [facility] ICD-10- HCS CM M62.81 Muscle weaknes s (genera lized)< br/>wit h Provide r Comment s: Muscle Weaknes s (Genera lized) Outpatient 94124-2.61 02/21 [place] Encounter [id number] /2021 [facility] Outpatient 32033-8.61 02/28 [place] Encounter [id number] /2021 [facility] Outpatient 40279-7.61 02/28 [place] Encounter [id number] /2021 [facility] REM 78590-2.61 Diagnos FASHINGBAU 03/01 [place] [facility] [id number] is: ANISA HANSON /2021 [facility] DEV EVAL ICD-10- T HCS SCRMS CM I63.9 Cerebra l infarct ion, unspeci fied
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 TRAINING ICD-10- HCS CM R53.1 Weaknes s
w ith Provide r Comment s: Weaknes s Outpatient 38925-3.61 06/ [place] En[place] [id number] /2021 [facility] Outpatient 57046-6.61 03/25 [place] Encounter [id number] /2021 [facility] Outpatient 75464-7.61 03/26 [place] Encounter [id number] /2021 [facility] Outpatient 74032-3.61 07 [place] En[place] [id number] /2021 [facility] Outpatient 20081-2.61 04/15 [place] Encounter [id number] /2021 [facility] Outpatient 03851-5.61 Diagnos SANTIAGO,E 04/19 [place] Encounter [id number] is: MAKENNA J /2021 [facility] ICD-10- HCS CM M62.81 Muscle weaknes s (genera lized)< br/>wit h Provide r Comment s: Muscle Weaknes s (Genera lized) REM 30174-3.61 Diagnos ZHOU,L 04/23 [place] [facility] [id number] is: NAOMI /2021 [facility] DEV EVAL ICD-10- HCS SCRMS CM I63.9 Cerebra l infarct ion, unspeci fied
with Provide r Comment s: Cerebra l infarct ion Outpatient 08221-2.61 04/23 [place] Encounter [id number] /2021 [facility] REM 73624-9.61 Diagnos FASHINGBAU 04/29 [place] [facility] [id number] is: YENIFER HANSONARE /2021 [facility] DEV EVAL ICD-10- T HCS SCRAL CM Z95.818 Presenc e of other cardiac implant s and grafts< br/>wit h Provide r Comment s: Presenc e of other cardiac implant s and grafts WHEELCHAIR 86106-2.61 Diagnos SHUN THURSTON 05/06 [place] MNGMENT [id number] is: D R [facility] TRAINING ICD-10- HCS CM R53.1 Weaknes s
w ith Provide r Comment s: Weaknes s CASE 19438-3.61 Diagnos GISELA REBOLLAR 05/15 [place] [facility] [id number] is: EE J [facility] ICD-10- HCS CM Z71.89 Other specifi ed job placement counselor ing<br/ >with Provide r Comment s: Other specifi ed Percussion Instrument Repairer ing Social History Combined list of available smoking, tobacco, and other social history from Department of Defense andVeterans Affairs facilities. Social History Type Response Date Comment Source Tobacco smoking status VA-TOBACCO FORMER USER 06/13/2020 [facility]IS History of tobacco use MS-TOBACCO QUIT 15 YRS 06/13/2020 [facility] OR MORE History of tobacco use VA-TOBACCO QUIT 15 YRS 05/20/2019 [facility] OR MORE History of tobacco use VA-TOBACCO FORMER USER 07/30/2018 [facility] History of tobacco use FORMER TOBACCO USER 7Y 08/25/2017 [facility] OR GREATER History of tobacco use FORMER TOBACCO USER 7Y 11/08/2016 [facility]ATER History of tobacco use FORMER TOBACCO USER 7Y 11/29/2015 [facility]ATER History of tobacco use FORMER TOBACCO USER 7Y 02/23/2015 [facility]ATER History of tobacco use FORMER TOBACCO USER 7Y 01/27/2014 [facility]ATER History of tobacco use FORMER TOBACCO USER 7Y 03/17/2007 [facility]ATER Advance Directives List of completed, amended, or rescinded Advance Directives on record at Department of Veterans Affairs facilities. An actual copy of the Directive is not included. Date Advance Directive Provider Source 03/17/2007 ADVANCE DIRECTIVE ALBERTO RODRIGUEZ [facility]
--- OUTSIDE RECORDS SUMMARY | 2022-05-21 11:06 | XMS_ITS | Encounter Summary ---
:1945 Author Organization [facility] rs Address [address] [place] [id number] Support Name Relationship Address Phone AIMEE COSTA Unavailable [address] [place] [address] AIMEE COSTA Unavailable Unavailable RENEE, CARLO Unavailable [phone] [phone] [place] [address] Insurance Providers: All historical and current Section Date Range: From patient's date of to the date document was created.This section includes the names of all active insurance providers for the patient. Insurance Type of Plan Start of End of Group Member Insurance Policy P atient's Provider Coverage Name Policy Policy Number ID Provider's Mar's Relationship Coverage Coverage Telephone Name to Policy Number Mar U-CARE OF MEDICARE MCR Sep 29, [id number] [phone] MILES HANSON SI PATIENT [place] [facility] ADVANTAGE (WNR) [phone] MON (WNR) U-CARE OF MEDICARE MCR Sep 29, [id number] [phone] JANES Nguyen SI PATIENT [place] [facility] (M) (WNR) 2008 [id number] MON (WNR) U-CARE OF MEDICARE MCR Sep 29, [id number] [phone] JANES Nguyen [place] PATIENT [place] [facility] ADVANTAGE (WNR) 2008 [id number] 4 MON (WNR) UCARE MCR MEDICARE MCR Sep 29, [id number] [phone] MILES HANSON SI PATIENT (WNR) ADVANTAGE (WNR) [phone] 5 MON [employer]ARE MEDICARE MCR Sep 29, [id number] [phone] Ihsan COSTA I PATIENT [facility] (WNR) 2010 [id number] [place] [facility] (WNR) Selected Encounter This section includes the information on record at [place] for the Encounter. 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 Date/Time Primary/Secondary Diagnosis Name Provider Source Diagnosis Jun 20, 2021 PRIMARY Type [address] [facility] [place] 08:23 PM mellitus with R D HCS diabetic nephropathy Plan of Treatment: Future Appointments (+ 6 months) and Future Tests (+/- 45 days) The Plan of Treatment section includes future care activities for the patient from all [place] treatmentfacilities. This section includes future appointments and future orders which are active, pending orscheduled.Future Appointments This section includes appointments that were scheduled to occur 6 months from the date of the Encounter, up to a maximum of 20 appointments. The data comes from all [place] treatment facilities. Appointment Date/Time Appointment Type Appointment Facili ty Name Jul 03, 2021 11:00 AM AMBULATORY - NONE [facility] Aug 14, 2021 10:00 AM AMBULATORY - NONE [facility] Aug 31, 2021 12:30 PM AMBULATORY - SURGERY [facility] Oct 11, 2021 08:30 AM AMBULATORY - NONE [facility] Oct 11, 2021 08:45 AM AMBULATORY - MEDICINE [facility] Oct 11, 2021 09:30 AM AMBULATORY - MEDICINE [facility] Oct 24, 2021 10:30 AM AMBULATORY - MEDICINE [facility] Nov 09, 2021 10:00 AM AMBULATORY - NONE [facility] Nov 21, 2021 11:30 AM AMBULATORY - MEDICINE [facility] CS Nov 30, 2021 08:30 AM AMBULATORY - NEUROLOGY [facility] Nov 30, 2021 10:30 AM AMBULATORY - SURGERY [facility] S Lab Results: +/- 30 days of the encounter This section includes the Chemistry and Hematology Lab Results on record with [place] for the patient. Radiology Reports and Pathology Reports are provided separately, in subsequent sections.Lab Results This section contains the Chemistry/Hematology Results that were resulted 30 days before or 30 daysafter the date of the Encounter. Date/Time Source Result Type Result - Unit Interpretation Reference Range Comment Jun 14, 2021 [facility] MICROALBUMIN/CREATININE RATIO Specimen Type: URINE 02:38 PM URINE No comment enter ed. Ordering Provid er: LONA PALACIO Report Released Date/Time: Jun 14, 2021 10:15 AM Reporting Lab: [facility] [address] [facility] [address] Performing Lab: [facility] [address] [facility] [address] CREATININE,UR RANDOM 19.5 L 58.0-161. 0 ALB/CREAT RATIO,UR 324.6 H <29.9 MICROALBUMIN,UR 63.3 H <29.9 Jun 14, 2021 10:45 AM [facility] C-PEPTIDE Specim en Type: SERUM Comment: Test P erformed by [facility] [place] [facility], [address] [place] [address] Jf Crum M.D., Ph.D., Director of Laboratories , [facility] [id number] Ordering Provid er: LONA PALACIO Report Released Date/Time: Jun 14, 2021 10:15 AM Reporting Lab: [facility] [address] [facility] [address] Performing Lab: [address] C-PEPTIDE 2.40 0.80-3.85 Jun 14, 2021 10:45 AM [facility] HEMOGLOBIN A1C Specim en Type: BLOOD No comment enter ed. Ordering Provid er: LONA PALACIO Report Released Date/Time: Jun 14, 2021 10:15 AM Reporting Lab: [facility] [address] [facility] [address] Performing Lab: [facility] [address] [facility] [address] HEMOGLOBIN A1C 10.2 H 4.0-6.0 Jun 14, 2021 10:45 [facility] TSH W/REFLEX TO FREE Spec imen Type: PLASMA AM T4 No comment enter ed. Ordering Provid er: LONA PALACIO Report Released Date/Time: Jun 14, 2021 10:15 AM Reporting Lab: [facility] [address] [facility] [address] Performing Lab: [facility] [address] [facility] [address] TSH 3.83 0.35-4.94 Jun 14, 2021 [facility] LIPID PANEL,NON-FASTING Spec imen Type: PLASMA 10:45 AM No comment enter ed. Ordering Provid er: LONA PALACIO Report Released Date/Time: Jun 14, 2021 10:15 AM Reporting Lab: [facility] [address] Performing Lab: [facility] [address] [facility] [address] CHOLESTEROL 127 <199 .HDL 28 L >40 LDL CALCULATION 65 <99 VLDL CALCULATION 34 H <29 NON HDL CHOLESTEROL 99 <129 TRIG(NON FASTING) 172 H <149 Jun 14, 2021 10:45 AM [facility] GLUCOSE Specim en Type: PLASMA No comment enter ed. Ordering Provid er: LONA PALACIO Report Released Date/Time: Jun 14, 2021 04:36 PM Reporting Lab: [facility] [address] [facility] [address] Performing Lab: [facility] ONE [facility] [address] GLUCOSE 292 H 74-100 Vital Signs: All taken on the encounter date This section contains inpatient and outpatient Vital Signs collected on the date of the Encounter. Date/Time Temperature Pulse Blood Respiratory SP02 Pain Height Weight Luis Alberto dy Source Pressure Rate Mass Index Jun 14, 97.6 F 55 130/69 18 /min 95 % 0 218.6 28 [place] 2020 09:37 /min mm[Hg] lb IS [facility] Social History: Smoking Status (Most current) and Tobacco Use (All prior to encounter date) This section includes the most current, and the historical, smoking and tobacco-related health factors from the [facility] where the Encounter took place.Current Smoking Status This section includes the most current smoking, or tobacco-related health factor, from the [place] facility where the Encounter took place. Date/Time Current Smoking Status Comment Facility Jun 13, 2020 10:00 AM [place]-TOBACCO FORMER USER [facility] Tobacco Use History This section includes a history of the smoking, or tobacco- related health factors, that were collected on or before the date of the Encounter. The data comes from the [place] facility where the Encounter took place. Date/Time Smoking Status/Tobacco Use Comment Faith ortiz Jun 13, 2020 10:00 AM VA-TOBACCO QUIT 15 YRS OR MORE [facility] May 20, 2019 12:18 PM VA-TOBACCO FORMER USER MIN [facility] May 20, 2019 12:18 PM VA-TOBACCO QUIT 15 YRS OR MORE [facility] Jul 30, 2018 08:31 AM VA-TOBACCO FORMER USER [facility] Jul 30, 2018 08:31 AM VA-TOBACCO QUIT 15 YRS OR MORE [facility] Aug 25, 2017 08:04 AM FORMER TOBACCO USER 7Y OR GREATER [facility] Nov 08, 2016 08:12 AM FORMER TOBACCO USER 7Y OR GREATER [facility] Nov 29, 2015 12:46 PM FORMER TOBACCO USER 7Y OR GREATER [facility] February 23, 2015 12:57 PM FORMER TOBACCO USER 7Y OR GREATER [facility] January 27, 2014 10:10 AM FORMER TOBACCO USER 7Y OR GREATER [facility] Mar 17, 2007 09:11 AM FORMER TOBACCO USER 7Y OR GREATER [facility] Advance Directives: All historical and current Section Date Range: From patient's date of to the date document was created. This section includes ALL of a patient's completed or amended [place] Advance and Rescinded Directives. The entries below indicate that a directive exists for the patient, but an actual copy is not included with this document. The data comes from all [place] facilities. Date Advance Directives Provider Source Mar 17, 2007 ADVANCE DIRECTIVE ALBERTO RODRIGUEZ [facility] Encounter Notes: All associated encounter notes This section contains the clinical notes associated to the Encounter. Date/Time Encounter Note(s) Provider Source Jun 22, 2021 04:28 PM [facility] TITLE: FOLLOW UP RESULTS LETTER STANDARD TITLE: LETTERS DATE OF NOTE: JUN 22, 2021@16:28 ENTRY DATE: JUN 22, 2021@16:28:48 AUTHOR: LONA PALACIO EXP COSIGNER: URGENCY: STATUS: COMPLETED [facility] [address] [place] [address] May BETH COSTA [address] [address] [facility] [id number] Dear : I am writing to inform you of the results of the tests you had done at the [facility]. The te sts below were performed and are satisfactory unless otherwise noted. The date and time of the test as well as the normal range is listed if th e actual value of the test is included. Comments: with these resultes the elevat ed HbA1c is consistent with the higher sugars you were having, and with a longe r period of sugars along the levels of the more recent ones the HbA1c will improve (and working with Zoya to get that better match between mealtime carbs and insulin dosing will be very helpful for improving this). The elevated urine microalbumin (protein in the urine) is due to diabetes-related changes in kidney. LDL-c holesterol is excellent on your current management. The thyroid christie ck (TSH) is at a good level. Also, the c-peptide looks at whether your own pancreas is continuing to make insulin-- and if it is then that opens up other medication options for us in the future to help control your sugars. You still have good insulin production (the main issue for you is that cells in your body are res istant to the insulin you are making, so now you are on exogenous insulin). Th is is good news because we have some other things available as we continuin g to work on better sugars. Please let us know if you have any questions or concerns between visits. Collection time: Jun 14, 2021@10:45 Test Name Result Units Range --------- ------ ----- ----- TSH 3.83 uIU/mL 0.35 - 4.94 CHOLESTEROL 127 mg/dL Ref: <=199 TRIG(NON FASTING) 172H mg/dL Ref: <=149 .HDL 28L mg/dL Ref: >=40 LDL CALCULATION 65 mg/dL Ref: <=99 VLDL CALCULATION 34H mg/dL Ref: <=29 NON HDL CHOLESTEROL 99 mg/dL Ref: <=129 HEMOGLOBIN A1C 10.2H % 4.0 - 6.0 MICROALBUMIN,UR 63.3H mg/L Ref: <=29.9 CREATININE,UR RANDOM 19.5L mg/dL 58.0 - 161.0 ALB/CREAT RATIO,UR 324.6H mg/g creat Ref: <=29.9 GLUCOSE 292H mg/dL 74 - 100 C-PEPTIDE SERUM 2.40 ng/mL (0.80 - 3.85) If you have any further questions or problems, corazon fregoso contact our nursing staff or me at the following number: . Sincerely, LONA PALACIO MD PHYSICIAN Jun 14, 2021 05:19 PM ENDOCRINOLOGY ATTENDING NOTE: JAKE PALACIO [facility] LOCAL TITLE: METABOLIC CLINIC NOTE STANDARD TITLE: ENDOCRINOLOGY ATTENDING NOTE DATE OF NOTE: JUN 14, 2021@17:19 ENTRY DATE: JUN 14, 2021@17:19:12 AUTHOR: LONA PALACIO EXP COSIGNER: URGENCY: STATUS: COMPLETED METABOLIC CLINIC NOTE Has ADDENDA Endocrine/Metabolic Clinic Note Nursing note reviewed and agree. Chief Complaint: 75 year old MALE referred for f ollow up evaluation of diabetes History of Present Illness: from last visit note: 75 yo male with PMH of HTN, HL, DM2, CHF, Asthm a, Depression. Pt has outside PCP (Dr. Yared guevara) and [employer] [facility] (Dr. Manuel Evans) who manage his medications. His diabetes is managed here at [place] with clinical pharmacist. Pt has had several medication change s since late January when he was hospitalized for acute exacerbation of CHF. For his diabetes, pt was gilson ing Glargine with Aspart TID. [He has prior been on metformin but his cardiologi st] started him on Canagliflozin 100mg daily due to creatinine of 1.6; however, pt did not s tart this medication either because he wants to keep his diabetic care solely through [facility]. He mentions that his diet is relatively stable now he makes an effort of eating low salt diet too, he eats s teamed vegetables, meat most of his meals,does have sandwiches for lunch, he men tiosn his fasting sugars can be in range of 200's in mornings. Diabetes Complications: Retinopathy: 5 months ago- none Neuropathy: none Nephropathy: on ACEi LDL goal:On sttain ACCU check review: Date Range: 05/02/2021 - 05/15/2021 bG values are displayed in mg/dL # of tests 43 Average 321 SD 124.1 Highest 575 Lowest 126 Avg tests/day 3.1 # HI 2 # LO 0 <70 0.0% 70-140 4.9% >140 95.1% Hypos(<50) 0 Date Range: 05/02/2021 - 05/15/2021 bG values are displayed in mg/dL 00:00- 05:30- 08:00- 11:00- 12:30- 17:00- 18:30 - 21:30- 05:30 08:00 11:00 12:30 17:00 18:30 21:30 00:00 05/02/2021 260 298 Hali 05/03/2021 206 471 502 342 05/04/2021 242 366 05/05/2021 289 135 05/06/2021 383 263 468 05/07/2021 229 571 433 228 05/08/2021 300 HI 476 386 05/09/2021 252 HI 213 174 126 Hali 05/10/2021 209 575 539 05/11/2021 343 347 523 234 05/12/2021 153 315 301 05/13/2021 176 391 05/14/2021 277 363 179 423 05/15/2021 219 Date Range: 05/02/2021 - 05/15/2021 bG values are displayed in mg/dL 00:00- 05:30- 08:00- 11:00- 12:30- 17:00- 18:30 - 21:30- 05:30 08:00 11:00 12:30 17:00 18:30 21:30 00:00 # of tests 2 0 13 4 9 1 3 11 Average 336 0 231 361 421 213 322 358 SD 66.5 58 85.4 164.3 0 151.1 115.3 Hi/Lo 0 0 0 0 2 0 0 0 --sugars more recently are improving: Date Range: 06/01/2021 - 06/14/2021 bG values are displayed in mg/dL # of tests 40 Average 283 SD 99.8 Highest 594 Lowest 147 Avg tests/day 2.9 # HI 0 # LO 0 <70 0.0% 70-140 0.0% >140 100.0% Hypos(<50) 0 Date Range: 06/01/2021 - 06/14/2021 bG values are displayed in mg/dL 00:00- 05:30- 08:00- 11:00- 12:30- 17:00- 18:30 - 21:30- 05:30 08:00 11:00 12:30 17:00 18:30 21:30 00:00 06/01/2021 244 234 224 06/02/2021 389 352 288 06/03/2021 246 251 195 06/04/2021 260 594 277 06/05/2021 190 424 252 06/06/2021 228 225 147 Hali 06/07/2021 188 357 240 268 06/08/2021 207 306 418 06/09/2021 205 406 06/10/2021 285 420 417 06/11/2021 184 363 181 06/12/2021 163 433 147 06/13/2021 186 359 344 Hali 06/14/2021 229 Date Range: 06/01/2021 - 06/14/2021 bG values are displayed in mg/dL 00:00- 05:30- 08:00- 11:00- 12:30- 17:00- 18:30 - :30- 05:30 08:00 11:00 12:30 17:00 18:30 21:30 00:00 # of tests 1 3 9 2 8 2 3 12 Average 186 219 219 395 370 243 352 268 SD 0 31.2 38.9 53.7 118.3 12 7.5 99.4 Hi/Lo 0 0 0 0 0 0 0 0 Date Range: 06/01/2021 - 06/14/2021 bG values are displayed in mg/dL 06/01/2021 7:31 AM 244 5:41 PM 234 9:55 PM 224 06/02/2021 1:50 PM 389 8:03 PM 352 9:39 PM 288 06/03/2021 8:44 AM 246 5:14 PM 251 9:57 PM 195 06/04/2021 8:10 AM 260 1:29 PM 594 10:15 PM 277 06/05/2021 8:48 AM 190 2:33 PM 424 10:07 PM 252 06/06/2021 8:35 AM 228 4:32 PM 225 10:10 PM 147 06/07/2021 8:38 AM 188 11:36 AM 357 2:10 PM 240 10:29 PM 268 06/08/2021 8:38 AM 207 1:52 PM 306 10:13 PM 418 06/09/2021 8:42 AM 205 9:56 PM 406 06/10/2021 8:39 AM 285 1:44 PM 420 10:02 PM 417 06/11/2021 6:25 AM 184 3:54 PM 363 11:01 PM 181 06/12/2021 8:39 AM 163 11:32 AM 433 9:47 PM 147 06/13/2021 4:58 AM 186 6:36 PM 359 9:13 PM 344 06/14/2021 7:36 AM 229 End of information from [facility] Current Diabetes Medications --Lantus 30 U daily (he notes this is a chronic dose) --Aspart variable dosing with meals/snacks (some times one meal daily, some snacks, and may give 10-25 U depending on the size, will give 10U @ bedtime if > 200, estimates about 50U daily) today we discussed that he would benefit from wo rking with our nutrition CDE, Zoya to get better matching of mealtime insulin w ith carb loads. Does not carb count now but is open to it. we can also increase basal a little to help brin g the fasting/premeal sugars down to around 150 more consistently as we begin to work on the mealtime matching. I also would like to look into endogenou s insulin production to help guide our future plans. We discussed that kidneys and heart benefit from SGLT2i therapy (currently on ampagliflozin) even if he is not getting a stron g glycemic benefit. Symptomatic Hypoglycemia Episodes: none recently Past Medical History: Active problems - Computerized Problem List is t he source for the followin. Hypertension (SNOMED CT 45333484) 2. Hyperlipidemia (SNOMED CT 87920918) 3. Tinnitus * 4. 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 Asthma (SNOMED CT 365516496) 6. Diabetic retinopathy (SNOMED CT 3489276) 7. Type 2 diabetes mellitus (SNOMED CT 36523007 ) 8. Umbilical hernia (SNOMED CT 353362201) 9. Obstructive sleep apnea (SNOMED CT 24305040) 10. Obesity * - 10 TOPIC GRAD 07-09-2012* 244.0 --> 09-17-12* 243.2 lbs 11. Anemia 12. Rosacea 13. Carcinoma of bladder 14. Depression ([facility] [[email or web address]] [id number]) - prescribed by uehling for depression 15. Congestive heart failure Allergies: PENICILLIN (Mar 17, 2007) SULFA DRUGS (Mar 17, 2007) DOXYCYCLINE (Jul 11, 2010) LISINOPRIL (Jul 22, 2011) AMLODIPINE (Nov 19, 2017) Active Outpatient Medications (including Supplie s): ACCU-CHEK GUIDE (GLUCOSE) TEST STRIP USE 1 STRIP 4-5 ACTIVE TIME-A-DAY TO CHECK BLOOD SUGAR -USE WITHIN 3 M INUTES OF REMOVING FROM CONTAINER ATORVASTATIN CALCIUM 80MG TAB TAKE ONE TABLET BY MOUTH AT PENDING BEDTIME FOR CHOLESTEROL BUDESONIDE 160/FORMOTER 4.5MCG 120D INH INHALE 2 PUFFS BY ACTIVE INHALATION TWICE A DAY FOR ASTHMA, TO PREVENT T ROUBLE BREATHING -RINSE MOUTH AFTER USING CLOPIDOGREL BISULFATE 75MG TAB TAKE ONE TABLET B Y MOUTH ACTIVE EVERY DAY INDEFINITELY TO PREVENT BLOOD CLOTS & STROKE EMPAGLIFLOZIN 25MG TAB TAKE ONE-HALF TABLET BY M OUTH EVERY ACTIVE DAY ESCITALOPRAM OXALATE 10MG TAB TAKE ONE TABLET BY MOUTH ACTIVE EVERY DAY FOR MOOD ESCITALOPRAM OXALATE 10MG TAB TAKE ONE TABLET BY MOUTH PENDING EVERY DAY FOR MOOD INSULIN,ASPART 100UN/ML JACKI FLEXPEN 3ML INJECT 10 UNITS ACTIVE UNDER THE SKIN THREE TIMES A DAY BEFORE MEALS I NJECT IMMEDIATELY BEFORE MEAL AND AT BEDTIME INJECT 1 UNIT IF BG BETWEEN 250-300 INJECT 2 UNITS IF BG BETW EEN 301-350 INJECT 3 UNITS IF BG BETWEEN 351-400 IN JECT 4 UNITS IF BG BETWEEN 400-450, DONT TAKE MORE CARYN N 4 UNITS AT BEDTIME FOR DIABETES INSULIN,GLARGINE 100 UNT/ML 3ML SOLOSTAR INJECT 28 UNITS ACTIVE UNDER THE SKIN AT BEDTIME *DO NOT MIX WITH OTHE R INSULINS LEVOTHYROXINE NA (SYNTHROID) 100MCG TAB TAKE ONE TABLET BY ACTIVE MOUTH EVERY DAY FOR THYROID LOSARTAN 50MG TAB TAKE ONE-HALF TABLET BY MOUTH EVERY DAY ACTIVE METOPROLOL SUCCINATE 50MG SA TAB TAKE ONE-HALF T ABLET BY ACTIVE MOUTH EVERY DAY FOR HEART FAILURE AND BLOOD PRE SSURE NEEDLE,PEN 31G,5MM USE 1 NEEDLE UNDER THE SKIN A S DIRECTED ACTIVE *DISPOSE OF IN A HARD-PLASTIC CONTAINER WITH A SCREW-ON LID CONTACT GARBAGE HAULER FOR PROPER DISPOSA L TORSEMIDE 20MG TAB TAKE TWO TABLETS BY MOUTH TWI CE A DAY ACTIVE FOR SWELLING *TAKE IN MORNING AND AT NOON* MEDICATION RECONCILIATION Outpatient At this visit I have reviewed the medication li st, and discussed relevant medications with the patient/surrogate . An updated patient medication list was given to the participant(s). No Change Physical Exam: Vital Signs Temp: 97.6 F [36.4 C] (06/14/2021 09:37) B/P: 130/69 (06/14/2021 09:37) Pulse: 55 (06/14/2021 09:37) Ht: 74.5 in [189.2 cm] (05/15/2021 09:36) Wt: 218.6 lb [99.4 kg] (06/14/2021 09:37) Pain: 0 (06/14/2021 09:37) BMI: 27.7 General: A and O fully, resting comfortably, NA D HEENT: NCAT, eomi, no scleral icterus or propto sis Labs: CREATININE URINE RANDOM (05/02): 19.5 L ALBUMIN/CREAT RATIO 01/02: 324.6 H MICROALBUMIN,UR: 63.3 H CHOLESTEROL: 127 HDL: 28 L TSH: 3.83 LDL CHOL: 65 VLDL CHOL: 34 H NON HDL CHOLESTEROL: 99 TRIG(NON FASTING): 172 H HGB A1C: 10.2 H GLUCOSE: 292 H Assessment and Plan: 75 year old MALE referred for initial evaluation and management of type 2 DM # Type 2 DM - off of metformin at present - Increse Lantus to 35 u in the evening - Aim to check sugars fasting , before meals and bedtime - will alert Zoya Duron here and place referral to her; continued insulin adjustmetns with myself and Zoya Duron in the inte [facility] - RTC with me again in about 3-4 mo - labs today for co-morbidit ies, assessment of endogenous insulin production to help with future med choices in this pt with hollis g history of DM2 Diabetes Complications: Retinopathy:last eye exam 5 months ago- none Neuropathy: none Nephropathy: on ACEi LDL goal:On sttain approx 35 minute visit same day was elías montano (counseling the patient in F2F visit about 25 min) combined with previsit prep and po st visit follow up care. /jeffry/ LONA PALACIO MD PHYSICIAN Signed: 06/20/2021 20:23 Receipt Acknowledged By: 06/22/2021 15:53 /jeffry/ Alysha Duron RD, [place] Registered Dietitian, 3K, Design Checker 06/22/2021 ADDENDUM STATUS: COMPLETED Appt set up for 07/03. /zhanna Duron RD, [place] Registered Dietitian, 3K, Design Checker Signed: 06/22/2021 15:54 Jun 14, 2021 09:40 AM INTERNAL MEDICINE OUTPATIENT NOTE: ROGER WAGONER [facility] LOCAL TITLE: MEDICINE CLINIC NURSING NOTE STANDARD TITLE: INTERNAL MEDICINE OUTPATIENT NOT E DATE OF NOTE: JUN 14, 2021@09:40 ENTRY DATE: JUN 14, 2021@09:40:36 AUTHOR: KELLY WAGONER EXP COSIGNER: URGENCY: STATUS: COMPLETED TYPE OF VISIT: Appointment Check In Type of appointment: In-person appointment REASON FOR VISIT: scheduled visit ALLERGIES: PENICILLIN (Mar 17, 2007) SULFA DRUGS (Mar 17, 2007) DOXYCYCLINE (Jul 11, 2010) LISINOPRIL (Jul 22, 2011) AMLODIPINE (Nov 19, 2017) VITAL SIGNS: Blood Pressure: 130/69 (06/14/2021 09:37) Pulse: 55 (06/14/2021 09:37) Respiration: 18 (06/14/2021 09:37) Temperature: 97.6 F [36.4 C] (06/14/2021 09:37) Weight: 218.6 lb [99.4 kg] (06/14/2021 09:37) Height: 74.5 in [189.2 cm] (05/15/2021 09:36) BMI: 27.7 O2 Sat: 95 (06/14/2021 09:37) Pain: 0 (06/14/2021 09:37) PAIN SCREEN: Patient is not having significant pain that the y wish to discuss with their provider today. MEDICATION Over the Counter/Herbal Medications: The patient denies taking any outside medicatio ns or herbals. Diabetes/Metabolic Clinic Glucometer: [place] brought glucometer and results were sen t to [facility] Name: Beth Costa : 1945 ID: [id number] Information from [employer] [facility] [employer] on 06/14/2021 Patient Name: Beth Costa Date Range: 06/01/2021 - 06/14/2021 bG values are displayed in mg/dL # of tests 40 Average 283 SD 99.8 Highest 594 Lowest 147 Avg tests/day 2.9 # HI 0 # LO 0 <70 0.0% 70-140 0.0% >140 100.0% Hypos(<50) 0 Date Range: 06/01/2021 - 06/14/2021 bG values are displayed in mg/dL 00:00- 05:30- 08:00- 11:00- 12:30- 17:00- 18:30 - 21:30- 05:30 08:00 11:00 12:30 17:00 18:30 21:30 00:00 06/01/2021 244 234 224 06/02/2021 389 352 288 06/03/2021 246 251 195 06/04/2021 260 594 277 06/05/2021 190 424 252 [facility] 06/06/2021 228 225 147 Hali 06/07/2021 188 357 240 268 [facility] 06/08/2021 207 306 418 06/09/2021 205 406 06/10/2021 285 420 417 06/11/2021 184 363 181 06/12/2021 163 433 147 06/13/2021 186 359 344 Hali 06/14/2021 229 Date Range: 06/01/2021 - 06/14/2021 bG values are displayed in mg/dL 00:00- 05:30- 08:00- 11:00- 12:30- 17:00- 18:30 - 21:30- 05:30 08:00 11:00 12:30 17:00 18:30 21:30 00:00 # of tests 1 3 9 2 8 2 3 12 Average 186 219 219 395 370 243 352 268 SD 0 31.2 38.9 53.7 118.3 12 7.5 99.4 Hi/Lo 0 0 0 0 0 0 0 0 Date Range: 06/01/2021 - 06/14/2021 bG values are displayed in mg/dL 06/01/2021 7:31 AM 244 5:41 PM 234 9:55 PM 224 06/02/2021 1:50 PM 389 8:03 PM 352 9:39 PM 288 06/03/2021 8:44 AM 246 5:14 PM 251 9:57 PM 195 06/04/2021 8:10 AM 260 1:29 PM 594 10:15 PM 277 06/05/2021 8:48 AM 190 2:33 PM 424 10:07 PM 252 06/06/2021 8:35 AM 228 4:32 PM 225 10:10 PM 147 06/07/2021 8:38 AM 188 11:36 AM 357 2:10 PM 240 10:29 PM 268 06/08/2021 8:38 AM 207 1:52 PM 306 10:13 PM 418 06/09/2021 8:42 AM 205 9:56 PM 406 06/10/2021 8:39 AM 285 1:44 PM 420 10:02 PM 417 06/11/2021 6:25 AM 184 3:54 PM 363 11:01 PM 181 06/12/2021 8:39 AM 163 11:32 AM 433 9:47 PM 147 06/13/2021 4:58 AM 186 6:36 PM 359 9:13 PM 344 06/14/2021 7:36 AM 229 End of information from [facility]U-CHEK 360 Diabetes M anagement System /es/ KELLY WAGONER LPN LPN Signed: 06/14/2021 09:43
--- OUTSIDE RECORDS SUMMARY | 2022-05-21 11:06 | XMS_ITS ---
NUTRITION/DIETETICS-INDIVIDUAL [facility] Encounter Summary Created on:July 04, 2021 Patient:BETH DURAN Sex:Male :1945 Author Organization [facility] rs Address [address] [place] [address] Support Name Relationship Address Phone AIMEE DURAN Unavailable [address] [place] [address] AIMEE DURAN Unavailable Unavailable RENEE CARLO Unavailable [address] [phone] [place] [address] Insurance Providers: All historical and current Section [...] U-CARE OF MEDICARE MCR Sep 29, [id number] [phone] MILES HANSON SI PATIENT [facility] ADVANTAGE (WNR) 2019 003 [id number] 4 MON (WNR) U-CARE OF MEDICARE MCR Sep 29, [id number] [phone] JANES Nguyen SI PATIENT [facility] (M) (WNR) 2008 [id number] 4 MON (WNR) U-CARE OF MEDICARE MCR Sep 29, [id number] [id number] [phone] JANES Nguyen SI PATIENT [facility] ADVANTAGE (WNR) 2008 1100 4 MON (WNR) [facility] MCR MEDICARE MCR Sep 29, [id number] [phone] MILES HANSON SI PATIENT (WNR) ADVANTAGE (WNR) 2019 003 00 5 MON [facility] MEDICARE MCR Sep 29, [id number] [phone] Ihsan DURAN I PATIENT [facility] (WNR) 2010 [id number] MON [facility] (WNR) Selected Encounter This section includes the information on record at [place] for the Encounter. Date/Time Encounter Type Encounter Reason Provider Source Description Jul 03, 2021 MEDICAL NUTRITION/DIETETI ICD-10-CM Z71.3 PATTI TO 11:00 AM NUTRITION INDIV CS-INDIVIDUAL Dietary counseling K IN and surveillance with Provider Comments: Dietary counseling and surveillance IHE Encounter Template Text not used by [facility] Assessments - Encounter Diagnoses This section includes the primary and secondary diagnoses documented for the Encounter. Date/Time Primary/Secondary Diagnosis Name Provider Source Diagnosis Jul 04, 2021 PRIMARY Dietary counseling MANJINDER TO 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 This section includes future appointments and future orders which are active, pending orscheduled.Future Appointments This section includes appointments that were scheduled to occur 6 months from the date of the Encounter, up to a maximum of 20 appointments. The data comes from all [place] treatment facilities. Appointment Date/Time Appointment Type Appointment Facili ty Name Aug 14, 2021 10:00 AM AMBULATORY - NONE [facility] Aug 31, 2021 12:30 PM AMBULATORY - SURGERY [facility] S Oct 11, 2021 08:30 AM AMBULATORY - NONE [facility] Oct 11, 2021 08:45 AM AMBULATORY - MEDICINE [facility] CS Oct 11, 2021 09:30 AM AMBULATORY - MEDICINE [facility] CS Oct 24, 2021 10:30 AM AMBULATORY - MEDICINE [facility] CS Nov 09, 2021 10:00 AM AMBULATORY - NONE [facility] Nov 21, 2021 11:30 AM AMBULATORY - MEDICINE [facility] CS Nov 30, 2021 08:30 AM AMBULATORY - NEUROLOGY [facility] Nov 30, 2021 10:30 AM AMBULATORY - SURGERY [facility] S Dec 18, 2021 09:00 AM AMBULATORY - MEDICINE [facility] CS Dec 21, 2021 10:30 AM AMBULATORY - SURGERY [facility] S Lab Results: +/- 30 days of the encounter This section includes the Chemistry and Hematology Lab Results on record with [place] for the patient. Radiology Reports and Pathology Reports are provided separately, in subsequent sections.Lab Results This section contains the Chemistry/Hematology Results that were resulted 30 days before or 30 daysafter the date of the Encounter. Date/Time Source Result Type Result - Unit Interpretation Reference Range Comment Jun 14, 2021 [facility] MICROALBUMIN/CREATININE RATIO Specimen Type: URINE 02:38 PM URINE No comment enter ed. Ordering Provid er: LONA PALACIO Report Released Date/Time: Jun 14, 2021 10:15 AM Reporting Lab: [facility] [address] [facility] [id number] Performing Lab: [facility] [address] CREATININE,UR RANDOM 19.5 L 58.0-161. 0 ALB/CREAT RATIO,UR 324.6 H <29.9 MICROALBUMIN,UR 63.3 H <29.9 Jun 14, 2021 10:45 AM [facility] C-PEPTIDE Specim en Type: SERUM Comment: Test P erformed by [facility], [facility], [address] [place] [address] Jf Crum M.D., Ph.D., Director of Laboratories , [facility] [id number] Ordering Provid er: LONA PALACIO Report Released Date/Time: Jun 14, 2021 10:15 AM Reporting Lab: [facility] [address] [facility] [address] [address] Performing Lab: [address] C-PEPTIDE 2.40 0.80-3.85 Jun 14, 2021 10:45 AM [facility] HEMOGLOBIN A1C Specim en Type: BLOOD No comment enter ed. Ordering Provid er: LONA PALACIO Report Released Date/Time: Jun 14, 2021 10:15 AM Reporting Lab: [facility] [address] [facility] [address] Performing Lab: [facility] [address] HEMOGLOBIN A1C 10.2 H 4.0-6.0 Jun 14, 2021 [facility] LIPID PANEL,NON-FASTING Spec imen Type: PLASMA 10:45 AM No comment enter ed. Ordering Provid er: LONA PALACIO Report Released Date/Time: Jun 14, 2021 10:15 AM Reporting Lab: [facility] [address] [facility] [address] Performing Lab: [facility] [address] [facility] [address] CHOLESTEROL 127 <199 .HDL 28 L >40 LDL CALCULATION 65 <99 VLDL CALCULATION 34 H <29 NON HDL CHOLESTEROL 99 <129 TRIG(NON FASTING) 172 H <149 Jun 14, 2021 10:45 [facility] TSH W/REFLEX TO FREE Spec imen Type: PLASMA AM T4 No comment enter ed. Ordering Provid er: LONA PALACIO Report Released Date/Time: Jun 14, 2021 10:15 AM Reporting Lab: [facility] [address] [facility] [address] Performing Lab: [facility] [address] [facility] [address] TSH 3.83 0.35-4.94 Jun 14, 2021 10:45 AM [facility] GLUCOSE Specim en Type: PLASMA No comment enter ed. Ordering Provid er: LONA PALACIO Report Released Date/Time: Jun 14, 2021 04:36 PM Reporting Lab: [facility] [address] [facility] [address] Performing Lab: [facility] [address] [facility] [address] GLUCOSE 292 H 74-100 Vital Signs: All taken on the encounter date This section contains inpatient and outpatient Vital Signs collected on the date of the Encounter. Date/Time Temperature Pulse Blood Respiratory SP02 Pain Height Weight Luis Alberto dy Source Pressure Rate Mass Index Jul 03 222.2 28 [place] 2020 11:00 lb [facility] Social History: Smoking Status (Most current) and Tobacco Use (All prior to encounter date) This section includes the most current, and the historical, smoking and tobacco-related health factors from the [place] facility where the Encounter took place.Current Smoking Status This section includes the most current smoking, or tobacco-related health factor, from the [place] facility where the Encounter took place. Date/Time Current Smoking Status Comment Facility Jun 13, 2020 10:00 AM AR-TOBACCO FORMER USER [facility] Tobacco Use History This section includes a history of the smoking, or tobacco- related health factors, that were collected on or before the date of the Encounter. The data comes from the [place] facility where the Encounter took place. Date/Time Smoking Status/Tobacco Use Comment Facil ity Jun 13, 2020 10:00 AM VA-TOBACCO QUIT 15 YRS OR MORE [facility] May 20, 2019 12:18 PM VA-TOBACCO FORMER USER [facility] May 20, 2019 12:18 PM VA-TOBACCO QUIT 15 YRS OR MORE [facility] Jul 30, 2018 08:31 AM VA-TOBACCO FORMER USER [facility] Jul 30, 2018 08:31 AM VA-TOBACCO QUIT 15 YRS OR MORE [facility] Aug 25, 2017 08:04 AM FORMER TOBACCO USER 7Y OR GREATER [facility] Nov 08, 2016 08:12 AM FORMER TOBACCO USER 7Y OR GREATER [facility] Nov 29, 2015 12:46 PM FORMER TOBACCO USER 7Y OR GREATER [facility] February 23, 2015 12:57 PM FORMER TOBACCO USER 7Y OR GREATER [facility] January 27, 2014 10:10 AM FORMER TOBACCO USER 7Y OR GREATER [facility] Mar 17, 2007 09:11 AM FORMER TOBACCO USER 7Y OR GREATER [facility] Advance Directives: All historical and current Section Date Range: From patient's date of to the date document was created. This section includes ALL of a patient's completed or amended [place] Advance and Rescinded Directives. The entries below indicate that a directive exists for the patient, but an actual copy is not included with this document. The data comes from all [place] facilities. Date Advance Directives Provider Source Mar 17, 2007 ADVANCE DIRECTIVE ROWENAMANFREDALBERTO Anjana [facility] Encounter Notes: All associated encounter notes This section contains the clinical notes associated to the Encounter. Date/Time Encounter Note(s) Provider Source Jul 04, 2021 10:50 AM NUTRITION EDUCATION NOTE: MANJINDER TO [facility] LOCAL TITLE: EDUCATION NUTRITION STANDARD TITLE: NUTRITION EDUCATION NOTE DATE OF NOTE: JUL 04, 2021@10:50 ENTRY DATE: JUL 04, 2021@10:50:10 AUTHOR: MANJINDER TO EXP COSIGNER: URGENCY: STATUS: COMPLETED SUBJECT: Carb Counting Education NUTRITION EDUCATION OUTPATIENT Initial Time spent: 90 minutes Reason for visit: carb counting ASSESSMENT: Height: 74.5 in [189.2 cm] (05/15/2021 09:36) Weight: Measurement DT WEIGHT LB(KG)[BMI] 07/03/2021 11:00 222.2(100.79)[28*] 06/14/2021 09:37 218.6(99.16)[28*] 05/15/2021 09:36 219.7(99.65)[28*] BMI: 28.2 Weight change: wt gain of 2.5 lbs in the past ~ 2 mo. [employer] Body Weight: 193 lbs Pertinent Past Medical History: HTN, T2D with r etinopathy, AGNIESZKA, HL, Obesity, Depression, Anemia, recurrent Bladder Cancer, CHF Nutrition Related Medications: Atorvastatin, Em pagliflozin, 10-25 units Aspart before meals and correction scale at bed time of 1 unit in BG 250-300, 2 units if BG 301-350, 3 units if BG 351-400, a nd 4 units if 400-450, Glargine insulin recently increased to 35 units from 30, Synthroid, Metoprolol, Torsemide EDUCATION SCREENING PARTICIPANTS: Patient BARRIERS/SPECIAL NEEDS: no barriers identified READINESS TO LEARN: no barriers Patient subjective statements: reports he doesn 't eat regularly scheduled meals, has had diabetes for a long time, doesn' t carb count but estimates how much insulin he needs based off size of simi ls. Went low the other night at 2 am and he ate a large snicker bar an d when it wasn't coming up fast enough, he ate 1.5 pints of ice cream. Sta more he doesn't go low often. Uses same insulin needle and same lancet needle for several months. Gives insulin injection throw his shirt. Didn't have his meter with him today. Had pt use the glucometer in the diabetes class room during this appt to check his fingerstick and it was 157. Pt states he has cut down on his sodium intake since having CHF. Wants to be on an insulin carb ratio and willing to learn how to count carbs. Pt also re ports a toothache for the past 3 weeks but hasn't went to the dentist I figure it will fall out eventually. I just don't chew on that side. 24 hour diet recall: Breakfast this a.m., he ate 2 buttered toast wi th cheese, 1 cup of grapefruit, a medium apple, and water. [employer] Counselor joanne dded the carbs up with pt and informed him this meal contained about 80 gm ca rb. He gave 20 units aspart. 2 hours later, he ate an Egg McMuffin at [facility] and a Diet Coke. This meal contained 30 gm carb and he did not take a ny insulin. Supper meal was 4 pm yesterday & pt reports he had a large salad consisting of lettuce, [place] tomatoes, walnuts and a larg e amount of [place] dressing. Last night they ate a piece of banana cream pie Fluid intake: drinks milk every other day. Drin ks water between meals. Dining out: goes to [employer] every other week. Food Allergies: None Problems related to food security: none Activity level: not regular scheduled activity; stays busy Malnutrition Assessment (Per AND/ASPCHIDI Rosenbaumensu s Statement, 2012) Dietitian does not suspect malnutrition at this time, therefore, physical assessment not conducted. Pertinent lab results: HEMOGLOBIN A1C 10.2 H (06/14/21) GLUCOSE 292 H (06/14/21) Lipid Panel: CHOLESTEROL 127 (06/14/21) HDL 28 L (06/14/21) Self-monitored blood glucose: didn't bring mete r Estimated needs for wt loss based on current we ight of 100.79 [id number] calories/day 15-18 kcal/kg 81 grams protein/day .8 g/kg 2015 ml fluids/day 20 ml/kg (h/o CHF) NUTRITION DIAGNOSIS: Food and nutrition knowledge deficit related to the need for a lower carb diet, conv erting to an [facility] A[facility] pt's subjective statements and an A1C of 10.2%. INTERVENTION: Provided nutrition education/counseling: o the effects of carbohydrate on the blood sugar s o what foods and fluids are high in carbohydrate s o what the portion sizes are to equal 15 gm carb o reviewed how to read a food label by looking a t the serving size and total grams of carbohydrates (not sugar) o what foods do not raise the blood sugars o to eat more non-starchy vegetables, fr uit, whole grains, lean meats, healthy fats but in moderation, low-fat dairy. o the 15:15 rule for treating a low BG and encou raged to have a quick acting carbohydrate source such as glucose tab lets, 4 oz of fruit juice, and keep on his person when away from t he house including working outside, going to appts, outings etc. Explained why his BG's did not com e up fast by using the candy bar and then why his BG's spike later o n. Will ask PCP to order glucose tabs. o if BG is >250 mg/dL, do not eat carbs. Instead eat lean meat and non-starchy vegetables and give correction scale aspart ins tead o Instructed pt to fill out the Diabetes Self-Ca re Records for 7 days so that his carb counts can be verified by designer writer for a ccuracy. Pt agreed and will mail back in one week. Gave him a self-addresse d stamped envelope to mail back to designer writer. Explained by doing this, his di abetes team would be able to calculate out what is insulin carb ratio would be (i.e. 1:10 or 1:8, etc.). Summer [employer] Counselor worked through his breakfast simi l using a 1:10 ICR so he could see how this would work. o Strongly encouraged pt to go to the dentist to get tooth fixed. Explained if his tooth is infected, this could cause high er blood sugar readings. o Also encouraged pt to check BG before each simi l and at bedtime. o Explained how he could look up foods that don' t have labels or are not listed on the Meal Planning for Diabetes sheet by using the [employer] Book. Education provided using: Handouts: Meal planning for diabetes Label reading for diabetes Low carbohydrate snacks Mediterranean diet Food Models Discussion Other: [employer] S[employer]er[employer] Book provided PARTICIPANT(S) RESPONSE (OUTCOME): Needs further reinforcement with carb counting. MONITORING/EVALUATION: Patient's nutrition/acti vity related goals: Goal 1 - pt is going to start carb counting and try to not consume >70 gm/meal for now Goal 2 - pt will fill out diabetes self-care re cords for 7 days and mail back to designer writer. Goal 3 - pt will check blood sugars before each meal Clinical outcome goal: Pt's next A1C will be <9 %. FOLLOW UP: Follow up appointment will be scheduled: after his surgery for bladder cancer on August 07. Provided pt RD direct phone number to call with any questions on carb counting. /jeffry/ Manjinder To RD, [place] Registered DietitianJim, Continuous Improvement Director Signed: 07/09/2021 11:11 Receipt Acknowledged By: * AWAITING SIGNATURE * VICKI KILLIAN
--- OUTSIDE RECORDS SUMMARY | 2022-05-21 11:07 | XMS_ITS | Encounter Summary ---
:1945 Author Organization [facility] rs Address [address] [place] [address] Support Name Relationship Address Phone AIMEE DURAN Unavailable [address] [place] [address] AIMEE DURAN Unavailable Unavailable RENEE, CARLO Unavailable [address] [phone] [place] [address] Insurance Providers: All historical and current Section [...] U-CARE OF MEDICARE MCR Sep 29, [id number] [phone] MILES HANSON SI PATIENT [facility] ADVANTAGE (WNR) 2019 003 00 4 MON (WNR) U-CARE OF MEDICARE MCR Sep 29, [id number] [phone] JANES Nguyen SI PATIENT [facility] (M) (WNR) 2008 1100 4 MON (WNR) U-CARE OF MEDICARE MCR Sep 29, [id number] [id number] [phone] JANES Nguyen SI PATIENT [facility] ADVANTAGE (WNR) 2008 1100 4 MON (WNR) [facility] MCR MEDICARE MCR Sep 29, [id number]_ [id number] [phone] MILES HANSON SI PATIENT (WNR) ADVANTAGE (WNR) 2019 003 00 5 MON [facility] MEDICARE MCR Sep 29, [id number] [phone] Ihsan DURAN I PATIENT [facility] (WNR) 2010 [id number] MON [facility] (WNR) Selected Encounter This section includes the information on record at [place] for the Encounter. Date/Time Encounter Type Encounter Description Reason Provider Source Sep 07, 2021 03:48 Outpatient Encounter PRIMARY CARE/MEDICINE PM [facility] Encounter Template Text not used by [place] Plan of Treatment: Future Appointments (+ 6 months) and Future Tests (+/- 45 days) The Plan of Treatment section includes future care activities for the patient from all [place] treatmentfacilities. This section includes future appointments and future orders which are active, pending orscheduled.Future Appointments This section includes appointments that were scheduled to occur 6 months from the date of the Encounter, up to a maximum of 20 appointments. The data comes from all [place] treatment facilities. Appointment Date/Time Appointment Type Appointment Facili ty Name Oct 11, 2021 08:30 AM AMBULATORY - NONE [facility] Oct 11, 2021 08:45 AM AMBULATORY - MEDICINE [facility] Oct 11, 2021 09:30 AM AMBULATORY - MEDICINE [facility] Oct 24, 2021 10:30 AM AMBULATORY - MEDICINE [facility] Nov 09, 2021 10:00 AM AMBULATORY - NONE [facility] Nov 21, 2021 11:30 AM AMBULATORY - MEDICINE [facility] Nov 30, 2021 08:30 AM AMBULATORY - NEUROLOGY [facility] Nov 30, 2021 10:30 AM AMBULATORY - SURGERY [facility] S Dec 18, 2021 09:00 AM AMBULATORY - MEDICINE [facility] Dec 21, 2021 10:30 AM AMBULATORY - SURGERY [facility] Jan 21, 2022 05:20 PM AMBULATORY - REHAB MEDICINE [facility] February 06, 2022 09:45 AM AMBULATORY - MEDICINE [facility] February 07, 2022 09:00 AM AMBULATORY - NONE [facility] February 07, 2022 10:00 AM AMBULATORY - NONE [facility] Feb 27, 2022 01:15 PM AMBULATORY - NONE [facility] Mar 04, 2022 01:30 PM AMBULATORY - NONE [facility] Social History: Smoking Status (Most current) and Tobacco Use (All prior to encounter date) This section includes the most current, and the historical, smoking and tobacco-related health factors from the [place] facility where the Encounter took place.Current Smoking Status This section includes the most current smoking, or tobacco-related health factor, from the [place] facility where the Encounter took place. Date/Time Current Smoking Status Comment Facility Jun 13, 2020 10:00 AM VA-TOBACCO QUIT 15 YRS OR MORE [facility] Tobacco Use History This section includes a history of the smoking, or tobacco- related health factors, that were collected on or before the date of the Encounter. The data comes from the [facility] where the Encounter took place. Date/Time Smoking Status/Tobacco Use Comment Facil it Jun 13, 2020 10:00 AM VA-TOBACCO QUIT 15 YRS OR MORE [facility] May 20, 2019 12:18 PM VA-TOBACCO FORMER USER [facility] May 20, 2019 12:18 PM VA-TOBACCO QUIT 15 YRS OR MORE [facility] Jul 30, 2018 08:31 AM VA-TOBACCO FORMER USER MIN [facility] Jul 30, 2018 08:31 AM VA-TOBACCO QUIT 15 YRS OR MORE [facility] Aug 25, 2017 08:04 AM FORMER TOBACCO USER 7Y OR GREATER [facility] Nov 08, 2016 08:12 AM FORMER TOBACCO USER 7Y OR GREATER [facility] Nov 29, 2015 12:46 PM FORMER TOBACCO USER 7Y OR GREATER [facility] February 23, 2015 12:57 PM FORMER TOBACCO USER 7Y OR GREATER [facility] January 27, 2014 10:10 AM FORMER TOBACCO USER 7Y OR GREATER [facility] Mar 17, 2007 09:11 AM FORMER TOBACCO USER 7Y OR GREATER [facility] Advance Directives: All historical and current Section Date Range: From patient's date of to the date document was created. This section includes ALL of a patient's completed or amended [place] Advance and Rescinded Directives. The entries below indicate that a directive exists for the patient, but an actual copy is not included with this document. The data comes from all [facility]. Date Advance Directives Provider Source Mar 17, 2007 ADVANCE DIRECTIVE ALBERTO RODRIGUEZ [facility] Encounter Notes: All associated encounter notes This section contains the clinical notes associated to the Encounter. Date/Time Encounter Note(s) Provider Source Sep 07, 2021 03:48 PM HOME HEALTH REFERRAL NOTE: IRINA SULLIVAN MA [facility] LOCAL TITLE: [facility] HOME HEALTH CARE STANDARD TITLE: HOME HEALTH REFERRAL NOTE DATE OF NOTE: SEP 07, 2021@15:48 ENTRY DATE: SEP 07, 2021@15:48:24 AUTHOR: IRINA SULLIVAN EXP COSIGNER: URGENCY: STATUS: COMPLETED HOME HEALTH CARE CERTIFICATION AND PLAN OF CARE SIGNED BY: Dr. EPSTEIN FOR HOME HEALTH CARE [facility] [id number] Certification period From: Feb To: Apr 29 /jeffry/ IRINA SULLIVAN ADVANCED LEAF COVERER Signed: 09/07/2021 15:51
--- OUTSIDE RECORDS SUMMARY | 2022-05-21 11:07 | XMS_ITS | Encounter Summary ---
:1945 Author Organization [facility] rs Address [address] [place] [id number] Support Name Relationship Address Phone AIMEE DURAN Unavailable [address] [place] [address] AIMEE DURAN Unavailable Unavailable CARLO DURAN Unavailable [address] [phone] [place] [address] Insurance Providers: All historical and current Section [...] U-CARE OF MEDICARE MCR Sep 29, [id number] [phone] MILES HANSON SI PATIENT [facility] ADVANTAGE (WNR) 2019 003 00 4 MON (WNR) U-CARE OF MEDICARE MCR Sep 29, [id number] [phone] JANES Nguyen SI PATIENT [facility] (M) (WNR) 2008 1100 4 MON (WNR) U-CARE OF MEDICARE MCR Sep 29, [id number] [phone] JANES Nguyen SI PATIENT [facility] ADVANTAGE (WNR) 2008 1100 4 MON (WNR) [facility]ARE MCR MEDICARE MCR Sep 29, [id number] [phone] MILES HANSON SI PATIENT (WNR) ADVANTAGE (WNR) 2019 003 00 5 MON [employer]ARE MEDICARE MCR Sep 29, [id number] [phone] RENEE,S I PATIENT [facility] (WNR) 2010 [id number] MON [facility] (WNR) Selected Encounter This section includes the information on record at [place] for the Encounter. Date/Time Encounter Type Encounter Description Reason Provider Source Jul 19, 2021 03:29 Outpatient Encounter TELEPHONE TRIAGE PM IHE Encounter Template Text not used by [place] Plan of Treatment: Future Appointments (+ 6 months) and Future Tests (+/- 45 days) The Plan of Treatment section includes future care activities for the patient from all [place] treatmentfacilities. This section includes future appointments and future orders which are active, pending orscheduled.Future Appointments This section includes appointments that were scheduled to occur 6 months from the date of the Encounter, up to a maximum of 20 appointments. The data comes from all [place] treatment facilities. Appointment Date/Time Appointment Type Appointment Facili ty Name Aug 14, 2021 10:00 AM AMBULATORY - NONE [facility] Aug 31, 2021 12:30 PM AMBULATORY - SURGERY [facility] Oct 11, 2021 08:30 AM AMBULATORY - NONE [facility] Oct 11, 2021 08:45 AM AMBULATORY - MEDICINE [facility] Oct 11, 2021 09:30 AM AMBULATORY - MEDICINE [facility] Oct 24, 2021 10:30 AM AMBULATORY - MEDICINE [facility] Nov 09, 2021 10:00 AM AMBULATORY - NONE [facility] Nov 21, 2021 11:30 AM AMBULATORY - MEDICINE [facility] Nov 30, 2021 08:30 AM AMBULATORY - NEUROLOGY [facility] Nov 30, 2021 10:30 AM AMBULATORY - SURGERY [facility] Dec 18, 2021 09:00 AM AMBULATORY - MEDICINE [facility] Dec 21, 2021 10:30 AM AMBULATORY - SURGERY [facility] Social History: Smoking Status (Most current) and Tobacco Use (All prior to encounter date) This section includes the most current, and the historical, smoking and tobacco-related health factors from the [place] facility where the Encounter took place.Current Smoking Status This section includes the most current smoking, or tobacco-related health factor, from the [place] facility where the Encounter took place. Date/Time Current Smoking Status [facility] Facility Jun 13, 2020 10:00 AM [place]-TOBACCO QUIT 15 YRS OR MORE [facility] Tobacco Use History This section includes a history of the smoking, or tobacco- related health factors, that were collected on or before the date of the Encounter. The data comes from the [place] facility where the Encounter took place. Date/Time Smoking Status/Tobacco Use Comment Facil ity Jun 13, 2020 10:00 AM VA-TOBACCO QUIT 15 YRS OR MORE [facility] May 20, 2019 12:18 PM VA-TOBACCO FORMER USER [facility] May 20, 2019 12:18 PM VA-TOBACCO QUIT 15 YRS OR MORE [facility] Jul 30, 2018 08:31 AM VA-TOBACCO FORMER USER [facility] Jul 30, 2018 08:31 AM VA-TOBACCO QUIT 15 YRS OR MORE [facility] Aug 25, 2017 08:04 AM FORMER TOBACCO USER 7Y OR GREATER [facility] Nov 08, 2016 08:12 AM FORMER TOBACCO USER 7Y OR GREATER [facility] Nov 29, 2015 12:46 PM FORMER TOBACCO USER 7Y OR GREATER [facility] February 23, 2015 12:57 PM FORMER TOBACCO USER 7Y OR GREATER [facility] January 27, 2014 10:10 AM FORMER TOBACCO USER 7Y OR GREATER [facility] Mar 17, 2007 09:11 AM FORMER TOBACCO USER 7Y OR GREATER [facility] Advance Directives: All historical and current Section Date Range: From patient's date of to the date document was created. This section includes ALL of a patient's completed or amended [place] Advance and Rescinded Directives. The entries below indicate that a directive exists for the patient, but an actual copy is not included with this document. The data comes from all [place] facilities. Date Advance Directives Provider Source Mar 17, 2007 ADVANCE DIRECTIVE TORRESRIANAALBERTO SHEARER Anjana [facility] Encounter Notes: All associated encounter notes This section contains the clinical notes associated to the Encounter. Date/Time Encounter Note(s) Provider Source Jul 19, 2021 03:29 PM REPORT OF CONTACT: PRATIBHA FOLEY [facility] LOCAL TITLE: PATIENT CONTACT NOTE STANDARD TITLE: REPORT OF CONTACT DATE OF NOTE: JUL 19, 2021@15:29 ENTRY DATE: JUL 19, 2021@15:29:53 AUTHOR: PRATIBHA FOLEY EXP COSIGNER: URGENCY: STATUS: COMPLETED PATIENT CONTACT NOTE Has [facility] Phone number verified as correct. [facility] requesting reorder of refills fo r EMPAGLIFLOZIN TAB,ORAL 25MG, [facility] state that he been out of medication for week an d need medication refilled as soon as possible. Please call back at /es/ PRATIBHA FOLEY [address]ISN[address] [facility] Signed: 07/19/2021 15:32 Receipt Acknowledged By: 07/20/2021 09:57 /es/ MARIA DEL CARMEN HURST RN REGISTERED NURSE for RIZWAN SHAHID 07/19/2021 15:55 /jeffry/ Anders Cline D.O. Staff Physician 07/19/2021 ADDENDUM STATUS: COMPLETED It appears to me that refill was mailed out toda y. Dispense Drugs (units/dose): EMPAGLIFLOZIN 25MG TAB () Last Filled: 07/19/21 Refills Remainin Filled: 07/19/21 (Mail) /jeffry/ Anders Cline D.O. Staff Physician Signed: 07/19/2021 15:56 Receipt Acknowledged By: 07/20/2021 09:57 /jeffry/ MARIA DEL CARMEN HURST RN REGISTERED NURSE for RIZWAN Ihsan ZEHRA 07/20/2021 ADDENDUM STATUS: COMPLETED Call made to the [facility] on the above. /es/ MICHI SEWELL RN REGISTERED NURSE Signed: 07/20/2021 09:55
--- OUTSIDE RECORDS SUMMARY | 2022-05-21 11:07 | XMS_ITS | Encounter Summary ---
:1945 Author Organization [facility] rs Address [address] [place] [address] Support Name Relationship Address Phone AIMEE DURAN Unavailable [address] [place] [address] AIMEE DURAN Unavailable Unavailable RENEECARLO HANSON Unavailable [address] [phone] [place] [address] Insurance Providers: All historical and current Section [...] U-CARE OF MEDICARE MCR Sep 29, [id number] [phone] MILES HANSON SI PATIENT [facility] ADVANTAGE (WNR) 2019 003 00 4 MON (WNR) U-CARE OF MEDICARE MCR Sep 29, [id number] [phone] JANES Nguyen SI PATIENT [facility] (M) (WNR) 2008 1100 4 MON (WNR) U-CARE OF MEDICARE MCR Sep 29, [id number] [phone] JANES Nguyen SI PATIENT [facility] ADVANTAGE (WNR) 2008 1100 4 MON (WNR) [facility]ARE MCR MEDICARE MCR Sep 29, [id number] [phone] MILES HANSON SI PATIENT (WNR) ADVANTAGE (WNR) 2019 003 00 5 MON [employer] MEDICARE MCR Sep 29, [id number] [phone] RENEE,S I PATIENT [facility] (WNR) [id number] [facility] (WNR) Selected Encounter This section includes the information on record at [place] for the Encounter. Date/Time Encounter Type Encounter Reason Provider Source Description Aug 31, 2021 ORAL HYGIENE DENTAL ICD-10-CM K02.52 Tae BRANHAM 12:30 PM INSTRUCTION Dental caries on OSHUA T pit and fissure surfc penetrat into dentin with Provider Comments: Dental caries on pit and fissure surface penetrating into dentin IHE Encounter Template Text not used by [place] Assessments - Encounter Diagnoses This section includes the primary and secondary diagnoses documented for the Encounter. Date/Time Primary/Secondary Diagnosis Name Provider Source Diagnosis Aug 31, 2021 PRIMARY Dental caries YONASMIESHA [facility] 02:20 PM on pit and SHUA T HCS fissure surfc penetrat into dentin Plan of Treatment: Future Appointments (+ 6 months) and Future Tests (+/- 45 days) The Plan of Treatment section includes future care activities for the patient from all [place] treatmentfacilities. This section includes future appointments and future orders which are active, pending orscheduled.Future Appointments This section includes appointments that were scheduled to occur 6 months from the date of the Encounter, up to a maximum of 20 appointments. The data comes from all [place] treatment facilities. Appointment Date/Time Appointment Type Appointment Facili ty Name Oct 11, 2021 08:30 AM AMBULATORY - NONE [facility] Oct 11, 2021 08:45 AM AMBULATORY - MEDICINE [facility] Oct 11, 2021 09:30 AM AMBULATORY - MEDICINE [facility] Oct 24, 2021 10:30 AM AMBULATORY - MEDICINE [facility] Nov 09, 2021 10:00 AM AMBULATORY - NONE [facility] Nov 21, 2021 11:30 AM AMBULATORY - MEDICINE [facility] Nov 30, 2021 08:30 AM AMBULATORY - NEUROLOGY [facility] Nov 30, 2021 10:30 AM AMBULATORY - SURGERY [facility] Dec 18, 2021 09:00 AM AMBULATORY - MEDICINE [facility] Dec 21, 2021 10:30 AM AMBULATORY - SURGERY [facility] Jan 21, 2022 05:20 PM AMBULATORY - REHAB [facility]IC[facility] February 06, 2022 09:45 AM AMBULATORY - MEDICINE [facility] February 07, 2022 09:00 AM AMBULATORY - NONE [facility] February 07, 2022 10:00 AM AMBULATORY - NONE [facility] Feb 27, 2022 01:15 PM AMBULATORY - NONE [facility] Social History: Smoking Status (Most current) and Tobacco Use (All prior to encounter date) This section includes the most current, and the historical, smoking and tobacco-related health factors from the [place] facility where the Encounter took place.Current Smoking Status This section includes the most current smoking, or tobacco-related health factor, from the [place] facility where the Encounter took place. Date/Time Current Smoking Status Comment Facility Jun 13, 2020 10:00 AM VA-TOBACCO QUIT 15 YRS OR MORE [facility] Tobacco Use History This section includes a history of the smoking, or tobacco- related health factors, that were collected on or before the date of the Encounter. The data comes from the [place] facility where the Encounter took place. Date/Time Smoking Status/Tobacco Use Comment [facility] it Jun 13, 2020 10:00 AM VA-TOBACCO QUIT 15 YRS OR MORE [facility] May 20, 2019 12:18 PM VA-TOBACCO FORMER USER [facility] May 20, 2019 12:18 PM VA-TOBACCO QUIT 15 YRS OR MORE [facility] Jul 30, 2018 08:31 AM VA-TOBACCO FORMER USER [facility] Jul 30, 2018 08:31 AM VA-TOBACCO QUIT 15 YRS OR MORE [facility] Aug 25, 2017 08:04 AM FORMER TOBACCO USER 7Y OR GREATER [facility] Nov 08, 2016 08:12 AM FORMER TOBACCO USER 7Y OR GREATER [facility] Nov 29, 2015 12:46 PM FORMER TOBACCO USER 7Y OR GREATER [facility] February 23, 2015 12:57 PM FORMER TOBACCO USER 7Y OR GREATER [facility] January 27, 2014 10:10 AM FORMER TOBACCO USER 7Y OR GREATER [facility] Mar 17, 2007 09:11 AM FORMER TOBACCO USER 7Y OR GREATER [facility] Advance Directives: All historical and current Section Date Range: From patient's date of to the date document was created. This section includes ALL of a patient's completed or amended [place] Advance and Rescinded Directives. The entries below indicate that a directive exists for the patient, but an actual copy is not included with this document. The data comes from all [facility]. Date Advance Directives Provider Source Mar 17, 2007 ADVANCE DIRECTIVE ALBERTO RODRIGUEZ [facility] Encounter Notes: All associated encounter notes This section contains the clinical notes associated to the Encounter. Date/Time Encounter Note(s) Provider Source Aug 31, 2021 02:20 DENTISTRY CONSULT: CLAIRE BRANHAM [facility] PM LOCAL TITLE: DENTAL IMAGING CONSULT T STANDARD TITLE: DENTISTRY CONSULT DATE OF NOTE: AUG 31, 2021@14:20 ENTRY DATE: AUG 31, 2021@14:20:27 AUTHOR: CLAIRE BRANHAM EXP COSIGNER: URGENCY: STATUS: COMPLETED Dental images were exposed, interpreted, and res ults were discussed with patient. /jeffry/ CLAIRE BRANHAM DDS STAFF DENTIST Signed: 08/31/2021 14:20 Aug 31, 2021 02:17 DENTISTRY NOTE: CLAIRE BRANHAM [facility] PM LOCAL TITLE: Dental Clinic Note T STANDARD TITLE: DENTISTRY NOTE DATE OF NOTE: AUG 31, 2021@14:17 ENTRY DATE: AUG 31, 2021@14:20:19 AUTHOR: CLAIRE BRANHAM EXP COSIGNER: URGENCY: STATUS: COMPLETED Patient Name: BETH DURAN, : 1945, A ge: 76 Visit: S: Aug 31, 2021@12:30 MSP DENTAL NEW PAT IENT 2UD. Primary PCE Diagnosis: K02.52 (Dental caries on pit and fissure surface penetrating into dentin). Dental Category: 15-OPC, Class IV. Treatment St atus: Active. Completed Care: (D0150) COMPREHENSVE ORAL EVALUATION. DX: K02.52 Dental Caries on Pit and Fissure Davide face Penetrating into Dentin (D0210) INTRAORAL FULL IMAGE SERIES. DX: K02.52 Dental Caries on Pit and Fissure Davide face Penetrating into Dentin (D1330) ORAL HYGIENE INSTRUCTION. DX: K02.52 Dental Caries on Pit and Fissure Davide face Penetrating into Dentin Presentation/Chief Complaint: Patient presents for comprehensive oral evaluat ion I don't want any drilling done. I had a tooth a christie in the upper right two months ago when I made this appt. The pain is almost gone now. History of Present Illness (HPI): 76 y/o male presents today for a new pt exam. P t prefers to not have any dental work done at this time since he is undergoing chemoradiation for bladder cancer. He reports t hat he developed a toothache about 2 months ago so he called the [facility] and made today's appt. Since then, the pain has nearly r esolved. 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 (ICD-9-CM 600.00) Asthma ([facility] [id number]) Diabetic retinopathy ([facility] [id number]) Type 2 diabetes mellitus ([facility] [id number]) Umbilical hernia ([facility] [id number]) Obstructive sleep apnea ([facility] [id number]) Obesity (ICD-9-CM 278.00) Anemia ([facility] [id number]) Rosacea ([facility] [id number]) Carcinoma of bladder ([facility] [id number]) Depression ([facility] [id number]) Congestive heart failure ([facility] [id number]) Active Medications: ---- Outpatient Medication ---- EMPAGLIFLOZIN 25MG TAB - (ACTIVE) GLUCOSE 4GM CHEW TAB - (ACTIVE) ATORVASTATIN CALCIUM 80MG TAB - (ACTIVE) ESCITALOPRAM OXALATE 10MG TAB - (ACTIVE) INSULIN,ASPART 100UN/ML JACKI FLEXPEN 3ML - (ACT [place]) NEEDLE,PEN 31G,5MM - (ACTIVE) ACCU-CHEK GUIDE (GLUCOSE) TEST STRIP - (ACTIVE) LEVOTHYROXINE NA (SYNTHROID) 100MCG TAB - (ACTI VE) LOSARTAN 50MG TAB - (ACTIVE) TORSEMIDE 20MG TAB - (ACTIVE) METOPROLOL SUCCINATE 50MG SA TAB - (ACTIVE) INSULIN,GLARGINE 100 UNT/ML 3ML SOLOSTAR - (ACT [place]) Active Allergies: PENICILLIN SULFA DRUGS DOXYCYCLINE LISINOPRIL AMLODIPINE Social History: Patient denies history of alcohol, tobacco, and drug use. Intraoral and Extraoral Screening Exam Findings: 08/31/2021 Head and neck assessment with oral c ancer screening is negative: no apparent pathology noted. Radiographic Findings: Radiographs reviewed, findings noted below: FMX: Mostly dentate. moderately restored. cario us lesions noted and charted in DRM. #2 carious lesion is closely ap proximating the pulp horn. minimal alveolar bone loss. OPG (from 2019): Panoramic film reveals a normal maxilla and amado ible without evidence of dental periapical lucencys, sinus cloudiness, bony cysts, radiopacities or fractures. The temporoma ndibular joint shows no evidence of degenerative changes or pathology. C ondylar morphology appears within normal limits. Bony impacted #17 closely approximating the ASIF. Soft tissue impacted #32 closely approximat ing ASIF, radiolucency circumscribing coronal portion of tooth consiste nt w/ tooth follicle. will monitor at follow up appts and 3D imaging will b e captured at next appt. Oral Examination: Oral Health Assessment Findings: Plaque Index: 3 - Heavy Xerostomia: 1 - Slight Caries Risk: 3 - High Oral Hygiene: 3 - Poor Dental Examination: Caries: 2(MBL), 3(D), 7(M), 8(FDL). Endodontically Treated: 13(r) Hemal Percha. Cracked: 4(MODB), 13(DOL), 18(DOL). Chipped: 14(MODBL). Faceted: 22(I), 23(I), 24(I), 25(I), 26(I), 27( I). Existing Dental Restorations: Restored: 2(MO) Amalgam, 5(MO) Amalgam, 6(L) Am algam, 13(O) Amalgam, 15(MOL) Amalgam, 16(O) Amalgam, 21(DO) Amalgam, 28(O) Amalgam, 29(O) Amalgam, 30(MOB) Amalgam, 31(OB) Amalgam. Crowns: 3 Porcelain, 8 PFM, 9 PFM, 10 PFM, 19 G old. Other: Charted dental findings in DRM. There is a combination of needs including #2 root canal treatment or extraction. Additionally, there ar e multiple areas of decay and fractured teeth. No Significant Tooth Mobility Noted Periodontal Screening/Recording (PSR): 0-0-0 - - - 0-0-0 Periodontal Assessment: Good Periodontal Health TMJ Findings: History: Patient reports no symptoms associated with TMJ. Clinical Findings: Popping/Clicking: Left Occlusal Findings: Normal Mandibular relationship Assessment/Plan: Periodontal: healthy. moderate plaque levels. 6 mo prophy recall recommended. Caries: active. #2 carious lesion closely appro ximating the pulp horn. Wear: moderate wear of dentition. multiple cusp al fractures of teeth. #15: NR to cold (necrotic) / SAP (S to percussi on). Root canal treamtent or extraction recommended due to high infection risk. After much discussion of risks and benefits of treatment, does not want dental care at this time. He woul d like to focus on his chemoradiation treatment. Highly encouraged treatment of #2 due to risk of abscess. Informed of other c arious lesions and fractured teeth. Again, he would like to wait u ntil undergoing any dental treatment. Recommended that if pain or s welling were to develop to contact the dental clinic or the ED after hours. No urgent dental needs or acute dental infectio ns noted on examination. No contraindications for planned procedure(s). Planned Procedures: Unsequenced (D2335) RESIN 4/> SURF OR W INCIS AN: 7(MIFL). DX: (). (D2740) CROWN PORCELAIN/CERAMIC SUBS: 13. DX: ( ). (D2740) CROWN PORCELAIN/CERAMIC SUBS: 14. DX: ( ). (D2740) CROWN PORCELAIN/CERAMIC SUBS: 18. DX: ( ). (D2740) CROWN PORCELAIN/CERAMIC SUBS: 2. DX: () . (D2740) CROWN PORCELAIN/CERAMIC SUBS: 3. DX: () . (D2740) CROWN PORCELAIN/CERAMIC SUBS: 4. DX: () . (D2740) CROWN PORCELAIN/CERAMIC SUBS: 8. DX: () . (D2950) CORE BUILD-UP INCL ANY PINS: 13. DX: () . (D2950) CORE BUILD-UP INCL ANY PINS: 14. DX: () . (D2950) CORE BUILD-UP INCL ANY PINS: 18. DX: () . (D2950) CORE BUILD-UP INCL ANY PINS: 2. DX: (). (D2950) CORE BUILD-UP INCL ANY PINS: 3. DX: (). (D2950) CORE BUILD-UP INCL ANY PINS: 4. DX: (). (D2950) CORE BUILD-UP INCL ANY PINS: 8. DX: (). (D3330) END THXPY MOLAR TOOTH: 2(dlm). DX: (). Apprised patient of findings, treatment recomme ndations, and treatment options. Disposition: Next visit: 1) does not want any dental treatment a t this time. he will call if and when he would like treatment. CBCT of Right to evaluate #32 impacted wisdom tooth - - - - - - - - - - - - - - - - - - - - - - - - - - - - - - /jeffry/ CLAIRE BRANHAM DDS STAFF DENTIST Signed: 08/31/2021 14:20
--- OUTSIDE RECORDS SUMMARY | 2022-05-21 11:07 | XMS_ITS | Encounter Summary ---
:1945 Author Organization [facility] rs Address [address] [place] [address] Support Name Relationship Address Phone AIMEE DURAN Unavailable [address] [place] [address] AIMEE DURAN Unavailable Unavailable RENEECARLO HANSON Unavailable [address] [phone] [place] [address] Insurance Providers: All historical and current Section [...] U-CARE OF MEDICARE MCR Sep 29, [id number] [phone] MILES HANSON SI PATIENT [facility] ADVANTAGE (WNR) 2019 003 00 4 MON (WNR) U-CARE OF MEDICARE MCR Sep 29, [id number] [phone] JANES Nguyen SI PATIENT [facility] (M) (WNR) 2008 1100 4 MON (WNR) U-CARE OF MEDICARE MCR Sep 29, [id number] [phone] JANES Nguyen SI PATIENT [facility] ADVANTAGE (WNR) 2008 1100 4 MON (WNR) [facility] MCR MEDICARE MCR Sep 29, [id number] [phone] MILES HANSON SI PATIENT (WNR) ADVANTAGE (WNR) 2019 003 00 5 MON [facility] MEDICARE MCR Sep 29, [id number] [phone] Ihsan DURAN I PATIENT [facility] (WNR) 2010 [id number] MON [facility] (WNR) Selected Encounter This section includes the information on record at [place] for the Encounter. Date/Time Encounter Type Encounter Description Reason Provider Source Jul 17, 2021 08:30 Outpatient Encounter TELEPHONE PRIMARY AM CARE IHE Encounter Template Text not used by [place] Plan of Treatment: Future Appointments (+ 6 months) and Future Tests (+/- 45 days) The Plan of Treatment section includes future care activities for the patient from all [place] treatmentfacilities. This section includes future appointments and future orders which are active, pending orscheduled.Future Appointments This section includes appointments that were scheduled to occur 6 months from the date of the Encounter, up to a maximum of 20 appointments. The data comes from all [place] treatment facilities. Appointment Date/Time Appointment Type Appointment Facili ty Name Aug 14, 2021 10:00 AM AMBULATORY - NONE [facility] Aug 31, 2021 12:30 PM AMBULATORY - SURGERY [facility] Oct 11, 2021 08:30 AM AMBULATORY - NONE [facility] Oct 11, 2021 08:45 AM AMBULATORY - MEDICINE [facility] Oct 11, 2021 09:30 AM AMBULATORY - MEDICINE [facility] Oct 24, 2021 10:30 AM AMBULATORY - MEDICINE [facility] Nov 09, 2021 10:00 AM AMBULATORY - NONE [facility] Nov 21, 2021 11:30 AM AMBULATORY - MEDICINE [facility] Nov 30, 2021 08:30 AM AMBULATORY - NEUROLOGY [facility] Nov 30, 2021 10:30 AM AMBULATORY - SURGERY [facility] Dec 18, 2021 09:00 AM AMBULATORY - MEDICINE [facility] Dec 21, 2021 10:30 AM AMBULATORY - SURGERY [facility] Social History: Smoking Status (Most current) and Tobacco Use (All prior to encounter date) This section includes the most current, and the historical, smoking and tobacco-related health factors from the [place] facility where the Encounter took place.Current Smoking Status This section includes the most current smoking, or tobacco-related health factor, from the [place] facility where the Encounter took place. Date/Time Current Smoking Status [facility] Facility Jun 13, 2020 10:00 AM VA-TOBACCO QUIT 15 YRS OR MORE [facility] Tobacco Use History This section includes a history of the smoking, or tobacco- related health factors, that were collected on or before the date of the Encounter. The data comes from the [place] facility where the Encounter took place. Date/Time Smoking Status/Tobacco Use Comment Facil ity Jun 13, 2020 10:00 AM VA-TOBACCO QUIT 15 YRS OR MORE [facility] May 20, 2019 12:18 PM VA-TOBACCO FORMER USER [facility] May 20, 2019 12:18 PM VA-TOBACCO QUIT 15 YRS OR MORE [facility] Jul 30, 2018 08:31 AM VA-TOBACCO FORMER USER [facility] Jul 30, 2018 08:31 AM VA-TOBACCO QUIT 15 YRS OR MORE [facility] Aug 25, 2017 08:04 AM FORMER TOBACCO USER 7Y OR GREATER [facility] Nov 08, 2016 08:12 AM FORMER TOBACCO USER 7Y OR GREATER [facility] Nov 29, 2015 12:46 PM FORMER TOBACCO USER 7Y OR GREATER [facility] February 23, 2015 12:57 PM FORMER TOBACCO USER 7Y OR GREATER [facility] January 27, 2014 10:10 AM FORMER TOBACCO USER 7Y OR GREATER [facility] Mar 17, 2007 09:11 AM FORMER TOBACCO USER 7Y OR GREATER [facility] Advance Directives: All historical and current Section Date Range: From patient's date of to the date document was created. This section includes ALL of a patient's completed or amended [place] Advance and Rescinded Directives. The entries below indicate that a directive exists for the patient, but an actual copy is not included with this document. The data comes from all [place] facilities. Date Advance Directives Provider Source Mar 17, 2007 ADVANCE DIRECTIVE TORRESRIANAALBERTO SHEARER Anjana [facility] Encounter Notes: All associated encounter notes This section contains the clinical notes associated to the Encounter. Date/Time Encounter Note(s) Provider Source Jul 17, 2021 08:30 AM PRIMARY CARE NONVA [facility] LOCAL TITLE: CO-MANAGED CARE NOTE STANDARD TITLE: PRIMARY CARE NONVA NOTE DATE OF NOTE: JUL 17, 2021@08:30 ENTRY DATE: JUL 17, 2021@08:30:50 AUTHOR: KARTHIKEYAN JEFFRIES EXP COSIGNER: URGENCY: STATUS: COMPLETED CO-MANAGED CARE NOTE Has ADDENDA Received a request for: 1. Change- Empagliflozin 25 mg tablet; Take 1 tablet by mouth every morning before breakfast. See scanned documents. 2. Trazodone 100 mg tablet; Take 0.5 tablet (50 mg) by mouth at bedtime as n eeded. Records scanned and available for review in [facility]. Rx written by: MD Shayla Alford Facility:[facility] Local provider phone #[phone] Local provider fax #[phone] Please alert me if med isn't approved or additio nal information is requested. If med is denied let me know what alternatives w ould be approved so I can communicate that information back to the local corazon zuniga. /jeffry/ KARTHIKEYAN JEFFRIES LPN [employer] Signed: 07/17/2021 08:47 Receipt Acknowledged By: 07/17/2021 09:45 /zhanna Cline D.O. Staff Physician 07/17/2021 ADDENDUM STATUS: COMPLETED Above ordered. /zhanna Cline D.O. Staff Physician Signed: 07/17/2021 09:46
--- OUTSIDE RECORDS SUMMARY | 2022-05-21 11:07 | XMS_ITS | Encounter Summary ---
:1945 Author Organization [facility] rs Address [address] [place] [address] Support Name Relationship Address Phone AIMEE DURAN Unavailable [address] [place] [address] AIMEE DURAN Unavailable Unavailable RENEECARLO HANSON Unavailable [address] [phone] [place] [address] Insurance Providers: All historical and current Section [...] U-CARE OF MEDICARE MCR Sep 29, [id number] [phone] MILES HANSON SI PATIENT [facility] ADVANTAGE (WNR) 2019 003 00 4 MON (WNR) U-CARE OF MEDICARE MCR Sep 29, [id number] [phone] JANES Nguyen SI PATIENT [facility] (M) (WNR) 2008 1100 4 MON (WNR) U-CARE OF MEDICARE MCR Sep 29, [id number] [id number] [phone] JANES Nguyen SI PATIENT [facility] ADVANTAGE (WNR) 2008 1100 4 MON (WNR) [facility] MCR MEDICARE MCR Sep 29, [id number] [phone] MILES HANSON SI PATIENT (WNR) ADVANTAGE (WNR) 2019 003 00 5 MON [facility] MEDICARE MCR Sep 29, [id number] [phone] RENEE,S I PATIENT [email or web address] (WNR) 2010 [id number] [facility] (WNR) Selected Encounter This section includes the information on record at [place] for the Encounter. Date/Time Encounter Type Encounter Reason Provider Source Description Jul 17, 2021 [facility] ICD-10-CM E11.8 Nov 10:53 AM ASSMT&MGMT 5-10 Type 2 diabetes IE K mellitus with unspecified complications with Provider Comments: Type 2 diabetes mellitus ([facility] [id number]) IHE Encounter Template Text not used by VA Assessments - Encounter Diagnoses This section includes the primary and secondary diagnoses documented for the Encounter. Date/Time Primary/Secondary Diagnosis Name Provider Source Diagnosis Jul 17, 2021 PRIMARY [facility] 10:56 AM mellitus with IE K HCS unspecified complications Plan of Treatment: Future Appointments (+ 6 [...] 14, 2021 10:00 AM AMBULATORY - NONE [facility] Aug 31, 2021 12:30 PM AMBULATORY - SURGERY [facility] Oct 11, 2021 08:30 AM AMBULATORY - NONE [facility] Oct 11, 2021 08:45 AM AMBULATORY - MEDICINE [facility] Oct 11, 2021 09:30 AM AMBULATORY - MEDICINE [facility] Oct 24, 2021 10:30 AM AMBULATORY - MEDICINE [facility] Nov 09, 2021 10:00 AM AMBULATORY - NONE [facility] Nov 21, 2021 11:30 AM AMBULATORY - MEDICINE [facility] Nov 30, 2021 08:30 AM AMBULATORY - NEUROLOGY [facility] Nov 30, 2021 10:30 AM AMBULATORY - SURGERY [facility] Dec 18, 2021 09:00 AM AMBULATORY - MEDICINE [facility] Dec 21, 2021 10:30 AM AMBULATORY - SURGERY [facility] Social History: Smoking Status (Most current) and Tobacco Use (All prior to encounter date) This section includes the most current, and the historical, smoking and tobacco-related health factors from the [place] facility where the Encounter took place.Current Smoking Status This section includes the most current smoking, or tobacco-related health factor, from the [place] facility where the Encounter took place. Date/Time Current Smoking Status Comment Facility Jun 13, 2020 10:00 AM VA-TOBACCO FORMER USER [facility] Tobacco Use History This section includes a history of the smoking, or tobacco- related health factors, that were collected on or before the date of the Encounter. The data comes from the [place] facility where the Encounter took place. Date/Time Smoking Status/Tobacco Use Comment Facil it Jun 13, 2020 10:00 AM VA-TOBACCO QUIT 15 YRS OR MORE [facility] May 20, 2019 12:18 PM VA-TOBACCO FORMER USER [facility] May 20, 2019 12:18 PM VA-TOBACCO QUIT 15 YRS OR MORE [facility] Jul 30, 2018 08:31 AM VA-TOBACCO FORMER USER [facility] Jul 30, 2018 08:31 AM VA-TOBACCO QUIT 15 YRS OR MORE [facility] Aug 25, 2017 08:04 AM FORMER TOBACCO USER 7Y OR GREATER [facility] Nov 08, 2016 08:12 AM FORMER TOBACCO USER 7Y OR GREATER [facility] Nov 29, 2015 12:46 PM FORMER TOBACCO USER 7Y OR GREATER [facility] February 23, 2015 12:57 PM FORMER TOBACCO USER 7Y OR GREATER [facility] January 27, 2014 10:10 AM FORMER TOBACCO USER 7Y OR GREATER [facility] Mar 17, 2007 09:11 AM FORMER TOBACCO USER 7Y OR GREATER [facility] Advance Directives: All historical and current Section Date Range: From patient's date of to the date document was created. This section includes ALL of a patient's completed or amended [place] Advance and Rescinded Directives. The entries below indicate that a directive exists for the patient, but an actual copy is not included with this document. The data comes from all [facility]. Date Advance Directives Provider Source Mar 17, 2007 ADVANCE DIRECTIVE ALBERTO RODRIGUEZ [facility] Encounter Notes: All associated encounter notes This section contains the clinical notes associated to the Encounter. Date/Time Encounter Note(s) Provider Source Jul 17, 2021 10:53 AM PHARMACY CONSULT: LEONOR BLAND [facility] LOCAL TITLE: PHARMACY PRIOR AUTHORIZATION APPRO YIMI CONSULT STANDARD TITLE: PHARMACY CONSULT DATE OF NOTE: JUL 17, 2021@10:53 ENTRY DATE: JUL 17, 2021@10:54:03 AUTHOR: LEONOR BLAND COSIGNER: URGENCY: STATUS: COMPLETED The medical record has been reviewed with regard to this prior authorization drug request. Medication requested: EMPAGLIFLOZIN 25MG TAB Medication indication: DIABETES Medical history relevant to this request: Insulin, Metformin, Empagliflozin 12.5mg; A1c 10.2 REQUEST FOR MAXIMUM DOSE The request is approved - A documented therapeutic failure of the prefer red formulary alternative(s) exists Active Outpatient Medications (including Supplie s): ACCU-CHEK GUIDE (GLUCOSE) TEST STRIP USE 1 STRIP 4-5 ACTIVE TIME-A-DAY TO CHECK BLOOD SUGAR -USE WITHIN 3 M INUTES OF REMOVING FROM CONTAINER ATORVASTATIN CALCIUM 80MG TAB TAKE ONE TABLET BY MOUTH AT ACTIVE BEDTIME FOR CHOLESTEROL CLOPIDOGREL BISULFATE 75MG TAB TAKE ONE TABLET B Y MOUTH ACTIVE EVERY DAY INDEFINITELY TO PREVENT BLOOD CLOTS & STROKE EMPAGLIFLOZIN 25MG TAB TAKE ONE TABLET BY MOUTH EVERY DAY PENDING ESCITALOPRAM OXALATE 10MG TAB TAKE ONE TABLET BY MOUTH ACTIVE (S) EVERY DAY FOR MOOD GLUCOSE 4GM CHEW TAB CHEW FOUR TABLETS BY MOUTH NEEDED ACTIVE FOR LOW BLOOD SUGAR INSULIN,ASPART 100UN/ML JACKI FLEXPEN 3ML INJECT 10 [...] CONTAINER WITH A SCREW-ON LID CONTACT GARBAGE KATHYULER FOR PROPER DISPOSA L TORSEMIDE 20MG TAB TAKE TWO TABLETS BY MOUTH TWI CE A DAY ACTIVE FOR SWELLING *TAKE IN MORNING AND AT NOON* TRAZODONE HCL 50MG TAB TAKE ONE TABLET BY MOUTH AT BEDTIME PENDING NEEDED /jeffry/ LEONOR Blair.D. Signed: 07/17/2021 10:56
--- OUTSIDE RECORDS SUMMARY | 2022-05-21 11:07 | XMS_ITS ---
NUTRITION/DIETETICS-INDIVIDUAL [facility] Encounter Summary Created on:August 15, 2021 Patient:BETH COSTA Sex:Male :1945 Author Organization [facility] rs Address [address] [place] [address] Support Name Relationship Address Phone AIMEE COSTA Unavailable [address] [place] [address] AIMEE COSTA Unavailable Unavailable RENEE CARLO Unavailable [address] [phone] [place] [address] Insurance Providers: All historical and current Section [...] U-CARE OF MEDICARE MCR Sep 29, [id number]_ [id number] [phone] MILES HANSON SI PATIENT [facility] ADVANTAGE (WNR) 2019 003 00 4 MON (WNR) U-CARE OF MEDICARE MCR Sep 29, [id number] [phone] JANES Nguyen SI PATIENT [facility] (M) (WNR) 2008 1100 4 MON (WNR) U-CARE OF MEDICARE MCR Sep 29, RIVAAB [id number] [phone] JANES Nguyen SI PATIENT [facility] ADVANTAGE (WNR) 2008 1100 4 MON (WNR) [facility] MCR MEDICARE MCR Sep 29, [id number]_ [id number] [phone] MILES HANSON SI PATIENT (WNR) ADVANTAGE (WNR) 2019 003 00 5 MON [facility] MEDICARE MCR Sep 29, [id number] [phone] Ihsan COSTA I PATIENT [facility] (WNR) 2010 [id number] MON [facility] (WNR) Selected Encounter This section includes the information on record at [place] for the Encounter. Date/Time Encounter Type Encounter Reason Provider Source Description Aug 14, 2021 MED NUTRITION NUTRITION/DIETETI ICD-10-CM Z71.3 JIM TO 10:00 AM INDIV SUBSEQ CS-INDIVIDUAL Dietary counseling K and surveillance with Provider Comments: Dietary counseling and surveillance IHE Encounter Template Text not used by VA Assessments - Encounter Diagnoses This section includes the primary and secondary diagnoses documented for the Encounter. Date/Time Primary/Secondary Diagnosis Name Provider Source Diagnosis Aug 15, 2021 PRIMARY Dietary counseling MANJINDER TO [facility] 02:48 PM and surveillance K [facility] Aug 15, 2021 SECONDARY Type 2 diabetes MANJINDER TO [place] 02:48 PM mellitus without K [facility] complications Plan of Treatment: Future Appointments (+ 6 months) and Future Tests (+/- 45 days) The Plan of Treatment section includes future care activities for the patient from all [place] treatmentfacilities. This section includes future appointments and future orders which are active, pending orscheduled.Future Appointments This section includes appointments that were scheduled to occur 6 months from the date of the Encounter, up to a maximum of 20 appointments. The data comes from all [place] treatment facilities. Appointment Date/Time Appointment Type Appointment Facili ty Name Aug 31, 2021 12:30 PM AMBULATORY - SURGERY [facility] Oct 11, 2021 08:30 AM AMBULATORY - NONE [facility] Oct 11, 2021 08:45 AM AMBULATORY - MEDICINE [facility] Oct 11, 2021 09:30 AM AMBULATORY - MEDICINE [facility] Oct 24, 2021 10:30 AM AMBULATORY - MEDICINE [facility] Nov 09, 2021 10:00 AM AMBULATORY - NONE [facility] Nov 21, 2021 11:30 AM AMBULATORY - MEDICINE [facility] Nov 30, 2021 08:30 AM AMBULATORY - NEUROLOGY [facility] Nov 30, 2021 10:30 AM AMBULATORY - SURGERY [facility] Dec 18, 2021 09:00 AM AMBULATORY - MEDICINE [facility] Dec 21, 2021 10:30 AM AMBULATORY - SURGERY [facility] Jan 21, 2022 05:20 PM AMBULATORY - REHAB MEDICINE [facility] February 06, 2022 09:45 AM AMBULATORY - MEDICINE [facility] February 07, 2022 09:00 AM AMBULATORY - NONE [facility] February 07, 2022 10:00 AM AMBULATORY - NONE [facility] Social History: Smoking Status (Most current) and Tobacco Use (All prior to encounter date) This section includes the most current, and the historical, smoking and tobacco-related health factors from the [facility] where the Encounter took place.Current Smoking Status This section includes the most current smoking, or tobacco-related health factor, from the [place] facility where the Encounter took place. Date/Time Current Smoking Status Comment Facility Jun 13, 2020 10:00 AM VA-TOBACCO FORMER USER [facility] Tobacco Use History This section includes a history of the smoking, or tobacco- related health factors, that were collected on or before the date of the Encounter. The data comes from the [place] facility where the Encounter took place. Date/Time Smoking Status/Tobacco Use Comment Facil it Jun 13, 2020 10:00 AM VA-TOBACCO QUIT 15 YRS OR MORE [facility] May 20, 2019 12:18 PM VA-TOBACCO FORMER USER MIN [facility] May 20, 2019 12:18 PM VA-TOBACCO QUIT 15 YRS OR MORE [facility] Jul 30, 2018 08:31 AM VA-TOBACCO FORMER USER [facility] Jul 30, 2018 08:31 AM VA-TOBACCO [...] ALL of a patient's completed or amended [place] Advance and Rescinded Directives. The entries below indicate that a directive exists for the patient, but an actual copy is not included with this document. The data comes from all [facility]. Date Advance Directives Provider Source Mar 17, 2007 ADVANCE DIRECTIVE ALBERTO RODRIGUEZ [facility] Encounter Notes: All associated encounter notes This section contains the clinical notes associated to the Encounter. Date/Time Encounter Note(s) Provider Source Aug 15, 2021 02:48 PM NUTRITION EDUCATION NOTE: MANJINDER TO [facility] LOCAL TITLE: EDUCATION NUTRITION STANDARD TITLE: NUTRITION EDUCATION NOTE DATE OF NOTE: AUG 15, 2021@14:48 ENTRY DATE: AUG 15, 2021@14:49:03 AUTHOR: MANJINDER TO EXP COSIGNER: URGENCY: STATUS: COMPLETED Follow Up Time spent: 30 minutes Reason for visit: carb counting ASSESSMENT: Height: 74.5 in [189.2 cm] (05/15/2021 09:36) Weight: Measurement DT WEIGHT LB(KG)[BMI] 07/03/2021 11:00 222.2(100.79)[28*] 06/14/2021 09:37 218.6(99.16)[28*] 05/15/2021 09:36 219.7(99.65)[28*] BMI: 28.2 Weight change: didn't weigh today [place] Body Weight: 193 lbs Pertinent Past Medical History: HTN, T2D with r etinopathy, AGNIESZKA, HL, Obesity, Depression, Anemia, recurrent Bladder Cancer, CHF Meds include: Atorvastatin, Empagliflozin, 10-2 5 units Aspart before meals and correction scale at bedtime of 1 unit in BG 250-300, 2 units if BG 301-350, 3 units if BG 351-400, and 4 units if 400-450, Glargine insulin recently increased to 35 units from 30, Synthro id, Metoprolol, Torsemide [facility] HEMOGLOBIN A1C 10.2 H (06/14/21) EDUCATION SCREENING PARTICIPANTS: Patient BARRIERS/SPECIAL NEEDS: no barriers identified READINESS TO LEARN: no barriers Patient subjective statement s: Mr. Costa reports he hasn't started counting his carbohydrates yet but has cut down on po rtion sizes and the food that are high in carbs. My blood sugars h ave come down. I have a lot of things going on right now. I started my chemo tomorrow through Sep 20r d. I want to get through that before I really get into the carb counting. Self-monitored blood glucose: didn't bring meter Estimated needs for wt loss based on current we ight of 100.79 [id number] calories/day 15-18 kcal/kg 81 grams protein/day .8 g/kg 2015 ml fluids/day 20 ml/kg (h/o CHF) NUTRITION DIAGNOSIS: Food and nutrition knowledg e deficit related to the need for a lower carb diet, converting to an ICR AEB pt's subjective statements and an A1C of 10.2%. Problem: active but has improved INTERVENTION: Provided nutrition education/counseling: o Commended pt on decreasing carbs and portion s izes. o Educated pt on focusing more on the healthy pl ate for diabetes during these next two months. Encouraged half of his plate a t lunch and dinner meals to be filled with the non-starchy vegetables, 1/4 or a little more but filled with lean protein, 1/4 grain, bread or a starch y vegetable with a side of fruit and milk. o Discussed holiday eating as well. o Encouraged pt to check his BG before e ach meal and bedtime; bring meter with to all appts. Education provided using: Handouts: Diabetes My Plate Discussion PARTICIPANT(S) RESPONSE (OUTCOME): Needs further reinforcement with carb counting. MONITORING/EVALUATION: Patient's nutrition/acti vity related goals: Goal 1 - pt is going to start carb counting and try to not consume >70 gm/meal for now; not met; d/c Goal 2 - pt will fill out diabetes self-care re cords for 7 days and mail back to specification writer.; not met; d/c Goal 3 - pt will check blood sugars before each meal; not met; ongoing Clinical outcome goal: Pt's next A1C will be <9 %. New goal: Pt will plan 90% of his lun h and dinner meals around the healthy plate method. FOLLOW UP: Follow up appointment will be scheduled mid-Sep ua per pt request. Provided pt RD direct phone number to call with any questions on carb counting. /jeffry/ Manjinder To RD, [facility] Registered Dietitian, Jim, [place] Signed: 08/15/2021 15:00
--- OUTSIDE RECORDS SUMMARY | 2022-05-21 11:07 | XMS_ITS | Encounter Summary ---
:1945 Author Organization [facility] rs Address [address] [place] [id number] Support Name Relationship Address Phone AIMEE DURAN Unavailable [address] [place] [address] AIMEE DURAN Unavailable Unavailable RENEECARLO HANSON Unavailable [address] [phone] [place] [address] Insurance Providers: All historical and current Section [...] U-CARE OF MEDICARE MCR Sep 29, [id number] [phone] MILES HANSON SI PATIENT [facility] ADVANTAGE (WNR) 2019 003 00 4 MON (WNR) U-CARE OF MEDICARE MCR Sep 29, [id number] [phone] JANES Nguyen SI PATIENT [facility] (M) (WNR) 2008 1100 4 MON (WNR) U-CARE OF MEDICARE MCR Sep 29, [id number] [phone] JANES Nguyen SI PATIENT [facility] ADVANTAGE (WNR) 2008 1100 4 MON (WNR) UCARE MCR MEDICARE MCR Sep 29, [id number] [phone] MILES HANSON SI PATIENT (WNR) ADVANTAGE (WNR) 2019 003 00 5 MON [facility]ARE MEDICARE MCR Sep 29, [id number] [phone] Ihsan DURAN I PATIENT [facility] (WNR) 2010 [id number] [facility] (WNR) Selected Encounter This section includes the information on record at DC for the Encounter. Date/Time Encounter Type Encounter Reason Provider Source Description Jul 03, 2021 IMMUNIZATION GENERAL INTERNAL ICD-10-CM Z23 SHANT TO 11:00 AM ADMIN MEDICINE Encounter for K immunization with Provider Comments: Encounter for Immunization (ICD-10-CM Z23.) IHE Encounter Template Text not used by [facility] Assessments - Encounter Diagnoses This section includes the primary and secondary diagnoses documented for the Encounter. Date/Time Primary/Secondary Diagnosis Name Provider Source Diagnosis Jul 18, 2021 PRIMARY Encounter for RICA GIVENS V Juana 05:39 AM immunization A [facility] Plan of Treatment: Future Appointments (+ 6 months) and Future Tests (+/- 45 days) The Plan of Treatment section includes future care activities for the patient from all DC treatmentfacilities. This section includes future appointments and future orders which are active, pending orscheduled.Future Appointments This section includes appointments that were scheduled to occur 6 months from the date of the Encounter, up to a maximum of 20 appointments. The data comes from all DC treatment facilities. Appointment Date/Time Appointment Type Appointment Facili ty Name Aug 14, 2021 10:00 AM AMBULATORY - NONE [facility] Aug 31, 2021 12:30 PM AMBULATORY - SURGERY [facility] S Oct 11, 2021 08:30 AM AMBULATORY - NONE [facility] Oct 11, 2021 08:45 AM AMBULATORY - MEDICINE [facility] Oct 11, 2021 09:30 AM AMBULATORY - MEDICINE [facility] Oct 24, 2021 10:30 AM AMBULATORY - MEDICINE [facility] Nov 09, 2021 10:00 AM AMBULATORY - NONE [facility] Nov 21, 2021 11:30 AM AMBULATORY - MEDICINE [facility] CS Nov 30, 2021 08:30 AM AMBULATORY - NEUROLOGY [facility] Nov 30, 2021 10:30 AM AMBULATORY - SURGERY [facility] S Dec 18, 2021 09:00 AM AMBULATORY - MEDICINE [facility] CS Dec 21, 2021 10:30 AM AMBULATORY - SURGERY [facility] S Lab Results: +/- 30 days of the encounter This section includes the Chemistry and Hematology Lab Results on record with DC for the patient. Radiology Reports and Pathology Reports are provided separately, in subsequent sections.Lab Results This section contains the Chemistry/Hematology Results that were resulted 30 days before or 30 daysafter the date of the Encounter. Date/Time Source Result Type Result - Unit Interpretation Reference Range Comment Jun 14, 2021 [facility] MICROALBUMIN/CREATININE RATIO Specimen Type: URINE 02:38 PM URINE No comment enter ed. Ordering Provid er: LONA PALACIO Report Released Date/Time: Jun 14, 2021 10:15 AM Reporting Lab: [facility] [address] [facility] [address] Performing Lab: [facility] [address] [facility] [address] CREATININE,UR RANDOM 19.5 L 58.0-161. 0 ALB/CREAT RATIO,UR 324.6 H <29.9 MICROALBUMIN,UR 63.3 H <29.9 Jun 14, 2021 10:45 AM [facility] C-PEPTIDE Specim en Type: SERUM Comment: Test P erformed by [facility], [facility], [address] [place] [address] Jf Crum M.D., Ph.D., Director of Laboratories , [facility] [id number] Ordering Provid er: LONA PALACIO Report Released Date/Time: Jun 14, 2021 10:15 AM Reporting Lab: [facility] [address] [facility] [address] [facility] [address] Performing Lab: [address] C-PEPTIDE 2.40 0.80-3.85 Jun 14, 2021 10:45 AM [facility] HEMOGLOBIN A1C Specim en Type: BLOOD No comment enter ed. Ordering Provid er: LONA PALACIO Report Released Date/Time: Jun 14, 2021 10:15 AM Reporting Lab: [facility] [address] [facility] [address] Performing Lab: [facility] [address] [facility] [address] HEMOGLOBIN A1C 10.2 H 4.0-6.0 Jun 14, 2021 [facility] LIPID PANEL,NON-FASTING Spec imen Type: PLASMA 10:45 AM No comment enter ed. Ordering Provid er: LONA PALACIO Report Released Date/Time: Jun 14, 2021 10:15 AM Reporting Lab: [facility] [address] [facility] [address] Performing Lab: [facility] [address] [place] [facility] [address] CHOLESTEROL 127 <199 .HDL 28 L >40 LDL CALCULATION 65 <99 VLDL CALCULATION 34 H <29 NON HDL CHOLESTEROL 99 <129 TRIG(NON FASTING) 172 H <149 Jun 14, 2021 10:45 [facility] TSH W/REFLEX TO FREE Spec imen Type: PLASMA AM T4 No comment enter ed. Ordering Provid er: LONA PALACIO Report Released Date/Time: Jun 14, 2021 10:15 AM Reporting Lab: [facility] [address] [place] [facility] [address] Performing Lab: [facility] [address] [facility] [address] TSH 3.83 0.35-4.94 Jun 14, 2021 10:45 AM [facility] GLUCOSE Specim en Type: PLASMA No comment enter ed. Ordering Provid er: LONA PALACIO Report Released Date/Time: Jun 14, 2021 04:36 PM Reporting Lab: [facility] [address] [facility] [address] Performing Lab: [facility] [address] [facility] [facility] [address] GLUCOSE 292 H 74-100 Vital Signs: All taken on the encounter date This section contains inpatient and outpatient Vital Signs collected on the date of the Encounter. Date/Time Temperature Pulse Blood Respiratory SP02 Pain Height Weight Luis Alberto dy Source Pressure Rate Mass Index Jul 03 222.2 28 [place] 2020 11:00 lb [facility] Immunizations: All administered on the encounter date This section contains immunizations associated to the Encounter. Immunization Series Date Issued Reaction Comments INFLUENZA, INJECTABLE, QUADRIVALENT, Jul 03, 2021 PRESERVATIVE FREE Social History: Smoking Status (Most current) and Tobacco Use (All prior to encounter date) This section includes the most current, and the historical, smoking and tobacco-related health factors from the DC facility where the Encounter took place.Current Smoking Status This section includes the most current smoking, or tobacco-related health factor, from the [facility] where the Encounter took place. Date/Time Current Smoking Status Comment Facility Jun 13, 2020 10:00 AM DC-TOBACCO QUIT 15 YRS OR MORE [facility] Tobacco Use History This section includes a history of the smoking, or tobacco- related health factors, that were collected on or before the date of the Encounter. The data comes from the DC facility where the Encounter took place. Date/Time Smoking Status/Tobacco Use Comment Facil ity Jun 13, 2020 10:00 AM VA-TOBACCO QUIT 15 YRS OR MORE [facility] May 20, 2019 12:18 PM VA-TOBACCO FORMER USER [facility] May 20, 2019 12:18 PM VA-TOBACCO QUIT 15 YRS OR MORE [facility] Jul 30, 2018 08:31 AM VA-TOBACCO FORMER USER [facility] Jul 30, 2018 08:31 AM VA-TOBACCO QUIT 15 YRS OR MORE [facility] Aug 25, 2017 08:04 AM FORMER TOBACCO USER 7Y OR GREATER [facility] Nov 08, 2016 08:12 AM FORMER TOBACCO USER 7Y OR GREATER [facility] Nov 29, 2015 12:46 PM FORMER TOBACCO USER 7Y OR GREATER [facility] February 23, 2015 12:57 PM FORMER TOBACCO USER 7Y OR GREATER [facility] January 27, 2014 10:10 AM FORMER TOBACCO USER 7Y OR GREATER [facility] Mar 17, 2007 09:11 AM FORMER TOBACCO USER 7Y OR GREATER [facility] Advance Directives: All historical and current Section Date Range: From patient's date of to the date document was created. This section includes ALL of a patient's completed or amended DC Advance and Rescinded Directives. The entries below indicate that a directive exists for the patient, but an actual copy is not included with this document. The data comes from all DC facilities. Date Advance Directives Provider Source Mar 17, 2007 ADVANCE DIRECTIVE TORRESRIANAALBERTO SHEARER [facility] Encounter Notes: All associated encounter notes This section contains the clinical notes associated to the Encounter. Date/Time Encounter Note(s) Provider Source Jul 03, 2021 11:00 AM [facility]MM[facility]ATION [facility] TITLE: INFLUENZA VACCINATION STANDARD TITLE: IMMUNIZATION NOTE DATE OF NOTE: JUL 03, 2021@11:00 ENTRY DATE: JUL 03, 2021@11:00:24 AUTHOR: ALEN REYNOLDS EXP COSIGNER: URGENCY: STATUS: COMPLETED The patient was given the influenza VIS which li sts the benefits and side effects of the vaccine and which reviews the ris ks of not receiving the flu vaccine. The VIS was reviewed with the patient a nd they were given an opportunity to ask questions. The patient was pr ovided education on how to decrease the risk of influen za infection including social distancing and use of good hand hygiene. The patient denied any prior severe reaction to the flu vaccine or its components. The patient gave verb al consent to receive the vaccine. The seasonal influenza vaccine VIS given to the patient: VIS version date Apr. The patient received seasonal influenza vaccine today - Influenza, Quadrivalent preservative free (Afluria) 0.5 ml IM today in Left Deltoid. 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 Lot # and Expiration Date: Lot#:[id number], EXP :03/11/2022 Administered by protocol/policy Complications: None /es/ ALEN REYNOLSD, CYCLING INSTRUCTOR NURSE Signed: 07/03/2021 11:04
--- OUTSIDE RECORDS SUMMARY | 2022-05-21 11:07 | XMS_ITS | Encounter Summary ---
:1945 Author Organization [facility] rs Address [address] [place] [address] Support Name Relationship Address Phone AIMEE DURAN Unavailable [address] [place] [address] AIMEE DURAN Unavailable Unavailable RENEECARLO HANSON Unavailable [address] [phone] [place] [address] Insurance Providers: All historical and current Section [...] U-CARE OF MEDICARE MCR Sep 29, [id number] [phone] MILES HANSON SI PATIENT [facility] ADVANTAGE (WNR) 2019 003 00 4 MON (WNR) U-CARE OF MEDICARE MCR Sep 29, [id number] [phone] JANES Nguyen SI PATIENT [facility] (M) (WNR) 2008 1100 4 MON (WNR) U-CARE OF MEDICARE MCR Sep 29, [id number] [phone] JANES Nguyen SI PATIENT [facility] ADVANTAGE (WNR) 2008 1100 4 MON (WNR) UCARE MCR MEDICARE MCR Sep 29, [id number]_ [id number] [phone] MILES HANSON SI PATIENT (WNR) ADVANTAGE (WNR) 2019 003 00 5 MON [facility]ARE MEDICARE MCR Sep 29, [id number] [phone] Ihsan DURAN I PATIENT [facility] (WNR) 2010 [id number] MON [facility] (WNR) Selected Encounter This section includes the information on record at CT for the Encounter. Date/Time Encounter Type Encounter Description Reason Provider Source Jul 10, 2021 11:12 Outpatient Encounter [facility] AM CONSULT IHE Encounter Template Text not used by CT Plan of Treatment: Future Appointments (+ 6 months) and Future Tests (+/- 45 days) The Plan of Treatment section includes future care activities for the patient from all CT treatmentfacilities. This section includes future appointments and future orders which are active, pending orscheduled.Future Appointments This section includes appointments that were scheduled to occur 6 months from the date of the Encounter, up to a maximum of 20 appointments. The data comes from all CT treatment facilities. Appointment Date/Time Appointment Type Appointment Facili ty Name Aug 14, 2021 10:00 AM AMBULATORY - NONE [facility] Aug 31, 2021 12:30 PM AMBULATORY - SURGERY [facility] S Oct 11, 2021 08:30 AM AMBULATORY - NONE [facility] Oct 11, 2021 08:45 AM AMBULATORY - MEDICINE [facility] Oct 11, 2021 09:30 AM AMBULATORY - MEDICINE [facility] Oct 24, 2021 10:30 AM AMBULATORY - MEDICINE [facility] Nov 09, 2021 10:00 AM AMBULATORY - NONE [facility] Nov 21, 2021 11:30 AM AMBULATORY - MEDICINE [facility] Nov 30, 2021 08:30 AM AMBULATORY - NEUROLOGY [facility] Nov 30, 2021 10:30 AM AMBULATORY - SURGERY [facility] S Dec 18, 2021 09:00 AM AMBULATORY - MEDICINE [facility] Dec 21, 2021 10:30 AM AMBULATORY - SURGERY [facility] S Lab Results: +/- 30 days of the encounter This section includes the Chemistry and Hematology Lab Results on record with CT for the patient. Radiology Reports and Pathology Reports are provided separately, in subsequent sections.Lab Results This section contains the Chemistry/Hematology Results that were resulted 30 days before or 30 daysafter the date of the Encounter. Date/Time Source Result Type Result - Unit Interpretation Reference Range Comment Jun 14, 2021 [facility] MICROALBUMIN/CREATININE RATIO Specimen Type: URINE 02:38 PM URINE No comment enter ed. Ordering Provid er: LONA PALACIO Report Released Date/Time: Jun 14, 2021 10:15 AM Reporting Lab: [facility] [address] [facility] [address] Performing Lab: [facility] [address] [facility] [address] CREATININE,UR RANDOM 19.5 L 58.0-161. 0 ALB/CREAT RATIO,UR 324.6 H <29.9 MICROALBUMIN,UR 63.3 H <29.9 Jun 14, 2021 10:45 AM [facility] C-PEPTIDE Specim en Type: SERUM Comment: Test P [facility]formed by [facility], [employer], [address] [place] [address] Jf Crum M.D., Ph.D., Director of Laboratories , [place] [id number] Ordering Provid er: LONA PALACIO Report Released Date/Time: Jun 14, 2021 10:15 AM Reporting Lab: [facility] [address] Performing Lab: [address] C-PEPTIDE 2.40 0.80-3.85 Jun 14, 2021 10:45 AM [facility] HEMOGLOBIN A1C Specim en Type: BLOOD No comment enter ed. Ordering Provid er: LONA PALACIO Report Released Date/Time: Jun 14, 2021 10:15 AM Reporting Lab: [facility] [address] [facility] [address] Performing Lab: [facility] [address] HEMOGLOBIN A1C 10.2 H 4.0-6.0 Jun 14, 2021 [facility] LIPID PANEL,NON-FASTING Spec imen Type: PLASMA 10:45 AM No comment enter ed. Ordering Provid er: LONA PALACIO Report Released Date/Time: Jun 14, 2021 10:15 AM Reporting Lab: [facility] [address] [facility] [address] Performing Lab: [facility] [address] CHOLESTEROL 127 <199 .HDL 28 L >40 LDL CALCULATION 65 <99 VLDL CALCULATION 34 H <29 NON HDL CHOLESTEROL 99 <129 TRIG(NON FASTING) 172 H <149 Jun 14, 2021 10:45 [facility] TSH W/REFLEX TO FREE Spec imen Type: PLASMA AM T4 No comment enter ed. Ordering Provid er: LONA PALACIO Report Released Date/Time: Jun 14, 2021 10:15 AM Reporting Lab: [facility] [address] [facility] [address] Performing Lab: [facility] [address] [facility] [address] TSH 3.83 0.35-4.94 Jun 14, 2021 10:45 AM [facility] GLUCOSE Specim en Type: PLASMA No comment enter ed. Ordering Provid er: LONA PALACIO Report Released Date/Time: Jun 14, 2021 04:36 PM Reporting Lab: [facility] [address] [facility] [address] Performing Lab: [facility] [address] [facility] [address] GLUCOSE 292 H 74-100 Social History: Smoking Status (Most current) and Tobacco Use (All prior to encounter date) This section includes the most current, and the historical, smoking and tobacco-related health factors from the CT facility where the Encounter took place.Current Smoking Status This section includes the most current smoking, or tobacco-related health factor, from the CT facility where the Encounter took place. Date/Time Current Smoking Status Comment Facility Jun 13, 2020 10:00 AM VA-TOBACCO FORMER USER [facility] Tobacco Use History This section includes a history of the smoking, or tobacco- related health factors, that were collected on or before the date of the Encounter. The data comes from the CT facility where the Encounter took place. Date/Time Smoking Status/Tobacco Use Comment [facility] Jun 13, 2020 10:00 AM VA-TOBACCO QUIT 15 YRS OR MORE [facility] May 20, 2019 12:18 PM VA-TOBACCO FORMER USER [facility] May 20, 2019 12:18 PM VA-TOBACCO QUIT 15 YRS OR MORE [facility] Jul 30, 2018 08:31 AM VA-TOBACCO FORMER USER [facility] Jul 30, 2018 08:31 AM VA-TOBACCO QUIT 15 YRS OR MORE [facility] Aug 25, 2017 08:04 AM FORMER TOBACCO USER 7Y OR GREATER [facility] Nov 08, 2016 08:12 AM FORMER TOBACCO USER 7Y OR GREATER [facility] Nov 29, 2015 12:46 PM FORMER TOBACCO USER 7Y OR GREATER [facility] February 23, 2015 12:57 PM FORMER TOBACCO USER 7Y OR GREATER [facility] January 27, 2014 10:10 AM FORMER TOBACCO USER 7Y OR GREATER [facility] Mar 17, 2007 09:11 AM FORMER TOBACCO USER 7Y OR GREATER [facility] Advance Directives: All historical and current Section Date Range: From patient's date of to the date document was created. This section includes ALL of a patient's completed or amended CT Advance and Rescinded Directives. The entries below indicate that a directive exists for the patient, but an actual copy is not included with this document. The data comes from all CT facilities. Date Advance Directives Provider Source Mar 17, 2007 ADVANCE DIRECTIVE ALBERTO RODRIGUEZ [facility] Encounter Notes: All associated encounter notes This section contains the clinical notes associated to the Encounter. Date/Time Encounter Note(s) Provider Source Jul 10, 2021 11:12 AM PHARMACY NOTE: [facility] LOCAL TITLE: PHARMACY NON VA CARE MEDICATIONS STANDARD TITLE: PHARMACY NOTE DATE OF NOTE: JUL 10, 2021@11:12 ENTRY DATE: JUL 10, 2021@11:12:07 AUTHOR: NABEEL RAJAN EXP COSIGNER: URGENCY: STATUS: COMPLETED [facility] Outpatient Pharmacy RECEIVED electronic p rescription(s) (eRX(s)) from NON-VA Provider: BETH DURAN Date eRX received: Jun not eligible to receive non-VA prescript ion(s) at this time. Prescription(s) REDIRECTED via FAX to: [X][facility] [ ]Other: [ ] [facility] [ ] [facility] [ ] [facility] [ ] Andrei Ferreira CB eRx Reference #: [id number] eRx Prescription Information: eRx Drug: empagliflozin 25 mg tablet (Jardiance) eRx Qty: 90 eRx Refills: 3 eRx Days Supply: eRx Written Date: JUL 10, 2021 eRx Issue Date: Prohibit Renewals: No eRx Sig: Take 1 tablet (25 mg total) by mouth every morni ng before breakfast. eRx Reference #: [id number] eRx Drug: traZODone 100 mg tablet (DESYREL) eRx Qty: 30 eRx Refills: 1 eRx Days Supply: eRx Written Date: JUL 10, 2021 eRx Issue Date: Prohibit Renewals: No eRx Sig: Take 0.5 tablets (50 mg total) by mouth at bedti me as needed for sleep. /jeffry/ NABEEL RAJAN PharmD Signed: 07/10/2021 11:12
--- OUTSIDE RECORDS SUMMARY | 2022-05-21 11:08 | XMS_ITS | Encounter Summary ---
:1945 Author Organization [facility] rs Address [address] [place] [address] Support Name Relationship Address Phone AIMEE DURAN Unavailable [address] [place] [address] AIMEE DURAN Unavailable Unavailable RENEECARLO HANSON Unavailable [address] [phone] [place] [address] Insurance Providers: All historical and current Section [...] U-CARE OF MEDICARE MCR Sep 29, [id number] [phone] MILES HANSON SI PATIENT [facility] ADVANTAGE (WNR) 2019 003 00 4 MON (WNR) U-CARE OF MEDICARE MCR Sep 29, [id number] [phone] JANES Nugyen SI PATIENT [facility] (M) (WNR) 2008 1100 4 MON (WNR) U-CARE OF MEDICARE MCR Sep 29, [id number] [phone] JANES Nguyen SI PATIENT [facility] ADVANTAGE (WNR) 2008 1100 4 MON (WNR) [facility] MCR MEDICARE MCR Sep 29, [id number] [phone] MILES HANSON SI PATIENT (WNR) ADVANTAGE (WNR) 2019 003 00 5 MON [facility] MEDICARE MCR Sep 29, [id number] [phone] Ihsan DURAN I PATIENT [facility] (WNR) 2010 [id number] MON [facility] (WNR) Selected Encounter This section includes the information on record at [place] for the Encounter. Date/Time Encounter Type Encounter Description Reason Provider Source Nov 09, 2021 10:14 Outpatient Encounter TELEPHONE/MEDICINE AM IHE Encounter Template Text not used by [place] Plan of Treatment: Future Appointments (+ 6 months) and Future Tests (+/- 45 days) The Plan of Treatment section includes future care activities for the patient [facility] [place] [facility] This section includes future appointments and future orders which are active, pending orscheduled.Future Appointments This section includes appointments that were scheduled to occur 6 months from the date of the Encounter, up to a maximum of 20 appointments. The data comes from all [place] treatment [facility]. Appointment Date/Time Appointment Type Appointment Facili ty Name Nov 21, 2021 11:30 AM AMBULATORY - MEDICINE [facility] Nov 30, 2021 08:30 AM AMBULATORY - NEUROLOGY [facility] Nov 30, 2021 10:30 AM AMBULATORY - SURGERY [facility] S Dec 18, 2021 09:00 AM AMBULATORY - MEDICINE [facility] Dec 21, 2021 10:30 AM AMBULATORY - SURGERY [facility] S Jan 21, 2022 05:20 PM AMBULATORY - REHAB MEDICINE [facility] February 06, 2022 09:45 AM AMBULATORY - MEDICINE [facility] February 07, 2022 09:00 AM AMBULATORY - NONE [facility] February 07, 2022 10:00 AM AMBULATORY - NONE [facility] Feb 27, 2022 01:15 PM AMBULATORY - NONE [facility] Mar 04, 2022 01:30 PM AMBULATORY - NONE [facility] Mar 11, 2022 09:00 AM AMBULATORY - REHAB MEDICINE [facility] Apr 22, 2022 03:30 PM AMBULATORY - NONE [facility] May 06, 2022 10:30 AM AMBULATORY - REHAB MEDICINE [facility] Active, Pending, and Scheduled Orders This section includes a listing of several types of active, pending, and scheduled orders, including clinic medications orders, diagnostic test orders, procedure orders and consult orders; where the start date of the order is 45 days before the date of the Encounter or 45 days after the date of the Encounter. The data comes from all [place] treatment [facility]. 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 Radiology Reports and Pathology Reports are provided separately, in subsequent sections.Lab Results This section contains the Chemistry/Hematology Results that were resulted 30 days before or 30 daysafter the date of the Encounter. Date/Time Source Result Type Result - Unit Interpretation Reference Range Comment Nov 30, 2021 [facility] COVID-19 AND FLU/RSV DIAG Sp ecimen Type: NASOPHARYNGEAL 07:55 AM PANEL(CEPHEID) Comment: Lencho hernandez GeneXpert (618) Ordering Provid er: SAHARA CEVALLOS Report Released Date/Time: Nov 28, 2021 09:05 AM Reporting Lab: [facility] [id number] Performing Lab: [facility] [id number] COVID-19 (CEPHEID) DETECTED HH Not Detecte d INFLUENZA A (PCR) Not Detected Not Detec geovanny INFLUENZA B (PCR) Not Detected Not Detec geovanny RSV (PCR) Not Detected Not Detected Oct 11, 2021 08:16 AM [facility] HEMOGLOBIN A1C Specim en Type: BLOOD No comment enter ed. Ordering Provid er: LONA PALACIO Report Released Date/Time: Jun 14, 2021 10:16 AM Reporting Lab: [facility] [address] [facility] [id number] Performing Lab: [facility] [id number] HEMOGLOBIN A1C 10.2 H 4.0-6.0 Social History: Smoking Status (Most current) and Tobacco Use (All prior to encounter date) This section includes the most current, and the historical, smoking and tobacco-related health factors from the [place] facility where the Encounter took place.Current Smoking Status This section includes the most current smoking, or tobacco-related health factor, from the [place] facility where the Encounter took place. Date/Time Current Smoking Status Comment Facility Jun 13, 2020 10:00 AM [place]-TOBACCO FORMER USER [facility] Tobacco Use History This section includes a history of the smoking, or tobacco- related health factors, that were collected on or before the date of the Encounter. The data comes from the [place] facility where the Encounter took place. Date/Time Smoking Status/Tobacco Use Comment Facil ity Jun 13, 2020 10:00 AM VA-TOBACCO QUIT 15 YRS OR MORE [facility] May 20, 2019 12:18 PM VA-TOBACCO FORMER USER [facility] May 20, 2019 12:18 PM VA-TOBACCO QUIT 15 YRS OR MORE [facility] Jul 30, 2018 08:31 AM VA-TOBACCO FORMER USER [facility] Jul 30, 2018 08:31 AM VA-TOBACCO QUIT 15 YRS OR MORE [facility] Aug 25, 2017 08:04 AM FORMER TOBACCO USER 7Y OR GREATER [facility] Nov 08, 2016 08:12 AM FORMER TOBACCO USER 7Y OR GREATER [facility] Nov 29, 2015 12:46 PM FORMER TOBACCO USER 7Y OR GREATER [facility] February 23, 2015 12:57 PM FORMER TOBACCO USER 7Y OR GREATER [facility] January 27, 2014 10:10 AM FORMER TOBACCO USER 7Y OR GREATER [facility] Mar 17, 2007 09:11 AM FORMER TOBACCO USER 7Y OR GREATER [facility] Advance Directives: All historical and current Section Date Range: From patient's date of to the date document was created. This section includes ALL of a patient's completed or amended [place] Advance and Rescinded Directives. The entries below indicate that a directive exists for the patient, but an actual copy is not included with this document. The data comes from all [place] facilities. Date Advance Directives Provider Source Mar 17, 2007 ADVANCE DIRECTIVE ROWENAALBERTO SHEARER [facility] Encounter Notes: All associated encounter notes This section contains the clinical notes associated to the Encounter. Date/Time Encounter Note(s) Provider Source Nov 09, 2021 10:14 AM REPORT OF CONTACT: DEBRA WALLS [facility] LOCAL TITLE: APPOINTMENT SCHEDULING NOTE STANDARD TITLE: REPORT OF CONTACT DATE OF NOTE: NOV 09, 2021@10:14 ENTRY DATE: NOV 09, 2021@10:15:02 AUTHOR: DEBRA WALLS EXP COSIGNER: URGENCY: STATUS: COMPLETED Attempt to schedule return to clinic 1st Contact: Called [place] at: Oct Left message Phone number left for to call back: [phone] 2nd Contact: Sent letter by regular [place] mail [place] [address] [address] [place] [address] If [place] calls back, schedule appointment for : Activity: 11/08/2021 13:03 New Order entered by LAMAR PALACIO (PHYSICIAN) Order Text: Return to [facility] METABOLIC PHONE ADONAY Santos RN on or around ( Dec 13, 2021 ) for a total of 1 appointment(s) Is the RTC marked as no later than? Kristie /jeffry/ DEBRA FREEDMAN Signed: 11/09/2021 10:15
--- OUTSIDE RECORDS SUMMARY | 2022-05-21 11:08 | XMS_ITS | Encounter Summary ---
:1945 Author Organization [facility] rs Address [address] [place] [address] Support Name Relationship Address Phone AIMEE DURAN Unavailable [address] [place] [address] AIMEE DURAN Unavailable Unavailable RENEECARLO HANSON Unavailable [address] [phone] [place] [address] Insurance Providers: All historical and current Section [...] U-CARE OF MEDICARE MCR Sep 29, [id number]_ [id number] [phone] MILES HANSON SI PATIENT [facility] ADVANTAGE (WNR) 2019 003 00 4 MON (WNR) U-CARE OF MEDICARE MCR Sep 29, [id number] [phone] JANES Nguyen SI PATIENT [facility] (M) (WNR) 2008 1100 4 MON (WNR) U-CARE OF MEDICARE MCR Sep 29, [id number] [phone] JANES Nguyen SI PATIENT [facility] ADVANTAGE (WNR) 2008 1100 4 MON (WNR) UCARE MCR MEDICARE MCR Sep 29, [id number]_ [id number] [phone] MILES HANSON SI PATIENT (WNR) ADVANTAGE (WNR) 2019 003 00 5 MON [facility] MEDICARE MCR Sep 29, [id number] [phone] Ihsan DURAN I PATIENT [facility] (WNR) 2010 [id number] [facility] (WNR) Selected Encounter This section includes the information on record at [place] for the Encounter. Date/Time Encounter Type Encounter Reason Provider Source Description Nov 21, 2021 HC PRO PHONE TELEPHONE/MEDICIN ICD-10-CM E11.8 KRISTEN MONTELONGO 11:30 AM CALL 5-10 MIN E Type 2 diabetes mellitus with unspecified complications with Provider Comments: Type 2 diabetes mellitus ([facility] [id number]) IHE Encounter Template Text not used by [place] Assessments - Encounter Diagnoses This section includes the primary and secondary diagnoses documented for the Encounter. Date/Time Primary/Secondary Diagnosis Name Provider Source Diagnosis Nov 21, 2021 PRIMARY Type 2 diabetes NOMI MONTELONGO [facility] 11:30 AM mellitus with HCS unspecified complications Plan of Treatment: Future Appointments (+ 6 months) and Future Tests (+/- 45 days) The Plan of Treatment section includes future care activities for the patient from all [place] treatmentfacilities. This section includes future appointments and future orders which are active, pending orscheduled.Future Appointments This section includes appointments that were scheduled to occur 6 months from the date of the Encounter, up to a maximum of 20 appointments. The data comes from all [place] treatment facilities. Appointment Date/Time Appointment Type Appointment Facili ty Name Nov 30, 2021 08:30 AM AMBULATORY - NEUROLOGY [facility] Nov 30, 2021 10:30 AM AMBULATORY - SURGERY [facility] Dec 18, 2021 09:00 AM AMBULATORY - MEDICINE [facility] Dec 21, 2021 10:30 AM AMBULATORY - SURGERY [facility] S Jan 21, 2022 05:20 PM AMBULATORY - REHAB MEDICINE [facility] February 06, 2022 09:45 AM AMBULATORY - MEDICINE [facility] February 07, 2022 09:00 AM AMBULATORY - NONE [facility] February 07, 2022 10:00 AM AMBULATORY - NONE [facility] Feb 27, 2022 01:15 PM AMBULATORY - NONE [facility] Mar 04, 2022 01:30 PM AMBULATORY - NONE [facility] Mar 11, 2022 09:00 AM AMBULATORY - REHAB MEDICINE [facility] Apr 22, 2022 03:30 PM AMBULATORY - NONE [facility] May 06, 2022 10:30 AM AMBULATORY - REHAB MEDICINE [facility] Active, Pending, and Scheduled Orders This section includes a listing of several types of active, pending, and scheduled orders, including clinic medications orders, diagnostic test orders, procedure orders and consult orders; where the start date of the order is 45 days before the date of the Encounter or 45 days after the date of the Encounter. The data comes from all [place] treatment facilities. Test Date/Time Test Type Test Details Facility Name Dec 24, 2021 08:07 AM Consult Order COMMUNITY CARE-DENTAL GEN SERV [facility] Cons [employer] Choice Lab Results: +/- 30 days of the encounter This section includes the Chemistry and Hematology Lab Results on record with [place] for the patient. Radiology Reports and Pathology Reports are provided separately, in subsequent sections.Lab Results This section contains the Chemistry/Hematology Results that were resulted 30 days before or 30 daysafter the date of the Encounter. Date/Time Source Result Type Result - Unit Interpretation Reference Range Comment Nov 30, 2021 [facility] COVID-19 AND FLU/RSV DIAG Sp ecimen Type: NASOPHARYNGEAL 07:55 AM PANEL(CEPHEID) Comment: Lencho hernandez GeneXpert (618) Ordering Provid er: SAHARA CEVALLOS Report Released Date/Time: Nov 28, 2021 09:05 AM Reporting Lab: [facility] [id number] Performing Lab: [facility] [id number] COVID-19 (CEPHEID) DETECTED HH Not Detecte d INFLUENZA A (PCR) Not Detected Not Detec geovanny INFLUENZA B (PCR) Not Detected Not Detec geovanny RSV (PCR) Not Detected Not Detected Social History: Smoking Status (Most current) and Tobacco Use (All prior to encounter date) This section includes the most current, and the historical, smoking and tobacco-related health factors from the [place] facility where the Encounter took place.Current Smoking Status This section includes the most current smoking, or tobacco-related health factor, from the [place] facility where the Encounter took place. Date/Time Current Smoking Status Comment Facility Jun 13, 2020 10:00 AM [place]-TOBACCO FORMER USER [facility] Tobacco Use History This section includes a history of the smoking, or tobacco- related health factors, that were collected on or before the date of the Encounter. The data comes from the [place] facility where the Encounter took place. Date/Time Smoking Status/Tobacco Use Comment [facility] Jun 13, 2020 10:00 AM VA-TOBACCO QUIT 15 YRS OR MORE [facility] May 20, 2019 12:18 PM VA-TOBACCO FORMER USER [facility] May 20, 2019 12:18 PM VA-TOBACCO QUIT 15 YRS OR MORE [facility] Jul 30, 2018 08:31 AM VA-TOBACCO FORMER USER [facility] Jul 30, 2018 08:31 AM VA-TOBACCO QUIT 15 YRS OR MORE [facility] Aug 25, 2017 08:04 AM FORMER TOBACCO USER 7Y OR GREATER [facility] Nov 08, 2016 08:12 AM FORMER TOBACCO USER 7Y OR GREATER [facility] Nov 29, 2015 12:46 PM FORMER TOBACCO USER 7Y OR GREATER [facility] February 23, 2015 12:57 PM FORMER TOBACCO USER 7Y OR GREATER [facility] January 27, 2014 10:10 AM FORMER TOBACCO USER 7Y OR GREATER [facility] Mar 17, 2007 09:11 AM FORMER TOBACCO USER 7Y OR GREATER [facility] Advance Directives: All historical and current Section Date Range: From patient's date of to the date document was created. This section includes ALL of a patient's completed or amended [place] Advance and Rescinded Directives. The entries below indicate that a directive exists for the patient, but an actual copy is not included with this document. The data comes from all [place] facilities. Date Advance Directives Provider Source Mar 17, 2007 ADVANCE DIRECTIVE ALBERTO RODRIGUEZ [facility] Encounter Notes: All associated encounter notes This section contains the clinical notes associated to the Encounter. Date/Time Encounter Note(s) Provider Source Nov 21, 2021 11:45 AM REPORT OF CONTACT: NOMI MONTELONGO [facility] LOCAL TITLE: PATIENT CONTACT NOTE STANDARD TITLE: REPORT OF CONTACT DATE OF NOTE: NOV 21, 2021@11:45 ENTRY DATE: NOV 21, 2021@11:45:45 AUTHOR: NOMI MONTELONGO EXP COSIGNER: URGENCY: STATUS: COMPLETED Patient contact Name of : BETH DURAN Name/Relationship of Contact if other than Veter an: Date & Time of Contact: Oct@11:45 Type of Contact: Telephone Reason for Contact: Called and spoke with breanaa n to do review semaglutide and pen teaching. received the handouts and had reviewed them ahea d of time. Reviewed storage, dosing, injection site, missed dose, and priming. He administers insulin so he feel comfortable with injections. He has not rec eived the medication yet, checked medication and it has not mailed out yet. Scheduled RN phone appt in 4 weeks to f/u on medication. No questions at this time. /jeffry/ NOMI MONTELONGO RN Metabolic [employer] Signed: 11/21/2021 11:55
--- OUTSIDE RECORDS SUMMARY | 2022-05-21 11:08 | XMS_ITS | Encounter Summary ---
:1945 Author Organization [facility] rs Address [address] [place] [id number] Support Name Relationship Address Phone AIMEE DURAN Unavailable [address] [place] [address] AIMEE DURAN Unavailable Unavailable RENEECARLO HANSON Unavailable [address] [phone] [place] [address] Insurance Providers: All historical and current Section [...] U-CARE OF MEDICARE MCR Sep 29, [id number] [phone] MILES HANSON SI PATIENT [facility] ADVANTAGE (WNR) 2019 003 00 4 MON (WNR) U-CARE OF MEDICARE MCR Sep 29, [id number] [phone] JANES Nguyen SI PATIENT [facility] (M) (WNR) 2008 1100 4 MON (WNR) U-CARE OF MEDICARE MCR Sep 29, [id number] [phone] JANES Nguyen SI PATIENT [facility] ADVANTAGE (WNR) 2008 1100 4 MON (WNR) [facility] MCR MEDICARE MCR Sep 29, [id number] [phone] MILES HANSON SI PATIENT (WNR) ADVANTAGE (WNR) 2019 003 00 5 MON [employer] MEDICARE MCR Sep 29, [id number] [phone] Ihsan DURAN I PATIENT [facility] (WNR) 2010 [id number] MON [facility] (WNR) Selected Encounter This section includes the information on record at [place] for the Encounter. Date/Time Encounter Type Encounter Description Reason Provider Source Nov 12, 2021 01:45 Outpatient Encounter TELEPHONE PRIMARY PM CARE IHE Encounter Template Text not used by [place] Plan of Treatment: Future Appointments (+ 6 months) and Future Tests (+/- 45 days) The Plan of Treatment section includes future care activities for the patient from [facility] [place] [facility] This section includes future appointments and future orders which are active, pending orscheduled.Future Appointments This section includes appointments that were scheduled to occur 6 months from the date of the Encounter, up to a maximum of 20 appointments. The data comes from all [place] [facility] Appointment Date/Time Appointment Type Appointment Facili ty Name Nov 21, 2021 11:30 AM AMBULATORY - MEDICINE [facility] Nov 30, 2021 08:30 AM AMBULATORY - NEUROLOGY [facility] Nov 30, 2021 10:30 AM AMBULATORY - SURGERY [facility] Dec 18, 2021 09:00 AM AMBULATORY - MEDICINE [facility] Dec 21, 2021 10:30 AM AMBULATORY - SURGERY [facility] Jan 21, 2022 05:20 PM AMBULATORY - REHAB [facility] February 06, 2022 09:45 AM AMBULATORY - MEDICINE [facility] February 07, 2022 09:00 AM AMBULATORY - NONE [facility] February 07, 2022 10:00 AM AMBULATORY - NONE [facility] Feb 27, 2022 01:15 PM AMBULATORY - NONE [facility] Mar 04, 2022 01:30 PM AMBULATORY - NONE [facility] Mar 11, 2022 09:00 AM AMBULATORY - REHAB MEDICINE [facility] Apr 22, 2022 03:30 PM AMBULATORY - NONE [facility] May 06, 2022 10:30 AM AMBULATORY - REHAB MEDICINE [facility] Active, Pending, and Scheduled Orders This section includes a listing of several types of active, pending, and scheduled orders, including clinic medications orders, diagnostic test orders, procedure orders and consult orders; where the start date of the order is 45 days before the date of the Encounter or 45 days after the date of the Encounter. The data comes from all [place] [facility] Test Date/Time Test Type Test Details Facility Name Dec 24, 2021 08:07 AM Consult Order COMMUNITY CARE-DENTAL GEN SERV [facility] Cons Commercial Driver'S License Driver's Choice Lab Results: +/- 30 days of the encounter This section includes the Chemistry and Hematology Lab Results on record with [place] for the patient. Radiology Reports and Pathology Reports are provided separately, in subsequent sections.Lab Results This section contains the Chemistry/Hematology Results that were resulted 30 days before or 30 daysafter the date of the Encounter. Date/Time Source Result Type Result - Unit Interpretation Reference Range Comment Nov 30, 2021 [facility] COVID-19 AND FLU/RSV DIAG Sp ecimen Type: NASOPHARYNGEAL 07:55 AM PANEL(CEPHEID) Comment: Cephei d GeneXpert (618) Ordering Provid er: SAHARA CEVALLOS Report Released Date/Time: Nov 28, 2021 09:05 AM Reporting Lab: [facility] [id number] Performing Lab: [facility] [id number] COVID-19 (CEPHEID) DETECTED HH Not Detecte d INFLUENZA A (PCR) Not Detected Not Detec geovanny INFLUENZA B (PCR) Not Detected Not Detec geovanny RSV (PCR) Not Detected Not Detected Social History: Smoking Status (Most current) and Tobacco Use (All prior to encounter date) This section includes the most current, and the historical, smoking and tobacco-related health factors from the [facility] where the Encounter took place.Current Smoking Status This section includes the most current smoking, or tobacco-related health factor, from the [place] facility where the Encounter took place. Date/Time Current Smoking Status Comment Facility Jun 13, 2020 10:00 AM VA-TOBACCO FORMER USER MIN [facility] Tobacco Use History This section includes a history of the smoking, or tobacco- related health factors, that were collected on or before the date of the Encounter. The data comes from the [place] facility where the Encounter took place. Date/Time Smoking Status/Tobacco Use Comment [facility] Jun 13, 2020 10:00 AM VA-TOBACCO QUIT 15 YRS OR MORE [facility] May 20, 2019 12:18 PM VA-TOBACCO FORMER USER [facility] May 20, 2019 12:18 PM VA-TOBACCO QUIT 15 YRS OR MORE [facility] Jul 30, 2018 08:31 AM VA-TOBACCO FORMER USER [facility] Jul 30, 2018 08:31 AM [place]-TO[place]CO QUIT 15 YRS OR MORE [facility] Aug 25, 2017 08:04 AM FORMER TOBACCO USER 7Y OR GREATER [facility] Nov 08, 2016 08:12 AM FORMER TOBACCO USER 7Y OR GREATER [facility] Nov 29, 2015 12:46 PM FORMER TOBACCO USER 7Y OR GREATER [facility] February 23, 2015 12:57 PM FORMER TOBACCO USER 7Y OR GREATER [facility] January 27, 2014 10:10 AM FORMER TOBACCO USER 7Y OR GREATER [facility] Mar 17, 2007 09:11 AM FORMER TOBACCO USER 7Y OR GREATER [facility] Advance Directives: All historical and [...] Mar 17, 2007 ADVANCE DIRECTIVE ROWENAALBERTO SHEARER Anjana [facility] Encounter Notes: All associated encounter notes This section contains the clinical notes associated to the Encounter. Date/Time Encounter Note(s) Provider Source Nov 12, 2021 01:45 PM PRIMARY CARE NONVA NOTE: MARIA DEL CARMEN BREAUX [facility] LOCAL TITLE: CO-MANAGED CARE NOTE STANDARD TITLE: PRIMARY CARE NONVA NOTE DATE OF NOTE: NOV 12, 2021@13:45 ENTRY DATE: NOV 12, 2021@13:45:48 AUTHOR: MARIA DEL CARMEN BREAUX EXP COSIGNER: URGENCY: STATUS: COMPLETED CO-MANAGED CARE NOTE Has ADDENDA Received a request for: 1. Change Torsemide to 20mg every morning. 2. Change Losartan to 25mg, take 2 tablets once daily. Records scanned and available for review. Rx written by: Melissa Ferrer Facility: [facility] Local provider phone #[phone] Local provider fax #[phone] Please alert me if med isn't approved or additio nal information is requested. If med is denied let me know what alternatives w ould be approved so I can communicate that information back to the local corazon zuniga. /jeffry/ MARIA DEL CARMEN BREAUX LPN [employer] Purchasing Agent Signed: 11/12/2021 13:48 Receipt Acknowledged By: 11/12/2021 14:38 /zhanna Cline D.O. Staff Physician 11/12/2021 ADDENDUM STATUS: COMPLETED Above changes made, orders placed. /zhanna Cline D.O. Staff Physician Signed: 11/12/2021 14:38
--- OUTSIDE RECORDS SUMMARY | 2022-05-21 11:08 | XMS_ITS | Encounter Summary ---
:1945 Author Organization [facility] rs Address [address] [place] [id number] Support Name Relationship Address Phone AIMEE DURAN Unavailable [address] [place] [address] AIMEE DURAN Unavailable Unavailable CARLO DURAN Unavailable [address] [phone] [place] [address] Insurance Providers: All historical and current Section [...] U-CARE OF MEDICARE MCR Sep 29, [id number] [phone] MILES HANSON SI PATIENT [facility] ADVANTAGE (WNR) 2019 003 00 4 MON (WNR) U-CARE OF MEDICARE MCR Sep 29, [id number] [phone] JANES Nguyen SI PATIENT [facility] (M) (WNR) 2008 1100 4 MON (WNR) U-CARE OF MEDICARE MCR Sep 29, [id number] [phone] JANES Nguyen SI PATIENT [facility] ADVANTAGE (WNR) 2008 1100 4 MON (WNR) [facility] MCR MEDICARE MCR Sep 29, [id number] [phone] MILES HANSON SI PATIENT (WNR) ADVANTAGE (WNR) 2019 003 00 5 MON [facility] MEDICARE MCR Sep 29, [id number] [phone] RENEE,S I PATIENT [facility] (WNR) 2010 [id number] MON [facility] (WNR) Selected Encounter This section includes the information on record at [place] for the Encounter. Date/Time Encounter Type Encounter Description Reason Provider Source Oct 19, 2021 03:13 Outpatient Encounter TELEPHONE TRIAGE PM IHE Encounter Template Text not used by [place] Plan of Treatment: Future Appointments (+ 6 months) and Future Tests (+/- 45 days) The Plan of Treatment section includes future care activities for the patient from all [place] treatmentfacilities. This section includes future appointments and future orders which are active, pending orscheduled.Future Appointments This section includes appointments that were scheduled to occur 6 months from the date of the Encounter, up to a maximum of 20 appointments. The data comes from all [place] treatment facilities. Appointment Date/Time Appointment Type Appointment Facili ty Name Oct 24, 2021 10:30 AM AMBULATORY - MEDICINE [facility] Nov 09, 2021 10:00 AM AMBULATORY - NONE [facility] Nov 21, 2021 11:30 AM AMBULATORY - MEDICINE [facility] Nov 30, 2021 08:30 AM AMBULATORY - NEUROLOGY [facility] Nov 30, 2021 10:30 AM AMBULATORY - SURGERY [facility] Dec 18, 2021 09:00 AM AMBULATORY - MEDICINE [facility] Dec 21, 2021 10:30 AM AMBULATORY - SURGERY [facility] Jan 21, 2022 05:20 PM AMBULATORY - REHAB MEDICINE [facility] February 06, 2022 09:45 AM AMBULATORY - MEDICINE [facility] February 07, 2022 09:00 AM AMBULATORY - NONE [facility] February 07, 2022 10:00 AM AMBULATORY - NONE [facility] Feb 27, 2022 01:15 PM AMBULATORY - NONE [facility] Mar 04, 2022 01:30 PM AMBULATORY - NONE [facility] Mar 11, 2022 09:00 AM AMBULATORY - REHAB MEDICINE [facility] Lab Results: +/- 30 days of the encounter This section includes the Chemistry and Hematology Lab Results on record with [place] for the patient. Radiology Reports and Pathology Reports are provided separately, in subsequent sections.Lab Results This section contains the Chemistry/Hematology Results that were resulted 30 days before or 30 daysafter the date of the Encounter. Date/Time Source Result Type Result - Unit Interpretation Reference Range Comment Oct 11, 2021 08:16 AM [facility] HEMOGLOBIN A1C Specim en Type: BLOOD No comment enter ed. Ordering Provid er: LONA PALACIO Report Released Date/Time: Jun 14, 2021 10:16 AM Reporting Lab: [facility] [address] [facility] [id number] Performing Lab: [facility] [address] [facility] [id number] HEMOGLOBIN A1C 10.2 H 4.0-6.0 Social History: Smoking Status (Most current) and Tobacco Use (All prior to encounter date) This section includes the most current, and the historical, smoking and tobacco-related health factors from the [facility] where the Encounter took place.Current Smoking Status This section includes the most current smoking, or tobacco-related health factor, from the [place] facility where the Encounter took place. Date/Time Current Smoking Status Comment Facility Jun 13, 2020 10:00 AM VA-TOBACCO FORMER USER [facility] Tobacco Use History This section includes a history of the smoking, or tobacco- related health factors, that were collected on or before the date of the Encounter. The data comes from the [place] facility where the Encounter took place. Date/Time Smoking Status/Tobacco Use Comment [facility] it Jun 13, 2020 10:00 AM VA-TOBACCO QUIT 15 YRS OR MORE [facility] May 20, 2019 12:18 PM VA-TOBACCO FORMER USER [facility] May 20, 2019 12:18 PM VA-TOBACCO QUIT 15 YRS OR MORE [facility] Jul 30, 2018 08:31 AM VA-TOBACCO FORMER USER [facility] Jul 30, 2018 08:31 AM VA-TOBACCO QUIT 15 YRS OR MORE [facility] Aug 25, 2017 08:04 AM FORMER TOBACCO USER 7Y OR GREATER [facility] Nov 08, 2016 08:12 AM FORMER TOBACCO USER 7Y OR GREATER [facility] Nov 29, 2015 12:46 PM FORMER TOBACCO USER 7Y OR GREATER [facility] February 23, 2015 12:57 PM FORMER TOBACCO USER 7Y OR GREATER [facility] January 27, 2014 10:10 AM FORMER TOBACCO USER 7Y OR GREATER [facility] Mar 17, 2007 09:11 AM FORMER TOBACCO USER 7Y OR GREATER [facility] Advance Directives: All historical and current Section Date Range: From patient's date of to the date document was created. This section includes ALL of a patient's completed or amended [place] Advance and Rescinded Directives. The entries below indicate that a directive exists for the patient, but an actual copy is not included with this document. The data comes from all [place] facilities. Date Advance Directives Provider Source Mar 17, 2007 ADVANCE DIRECTIVE ALBERTO RODRIGUEZ [facility] Encounter Notes: All associated encounter notes This section contains the clinical notes associated to the Encounter. Date/Time Encounter Note(s) Provider Source Oct 19, 2021 03:13 PM REPORT OF CONTACT: AUNG MONDRAGONLORIE THOMASON [facility] LOCAL TITLE: PATIENT CONTACT NOTE STANDARD TITLE: REPORT OF CONTACT DATE OF NOTE: OCT 19, 2021@15:13 ENTRY DATE: OCT 19, 2021@15:13:42 AUTHOR: AUNG MONDRAGON EXP COSIGNER: URGENCY: STATUS: COMPLETED PATIENT CONTACT NOTE Has ADDENDA Primary Care Call Center Phone number verified as correct. [phone] - [place] (direct #) [place], from [facility], called. Three Plan of care forms are out-standing and have not been receive back. Form was last fax ed to clinic in August 2021 but they have been trying since March 2021. [facility] fa x # was verified. Please fax forms back to [place] at: [phone] /jeffry/ AUNG MONDRAGON VSN [address] [facility] CALL CENTER [facility] Signed: 10/19/2021 15:19 Receipt Acknowledged By: 10/22/2021 09:06 /jeffry/ MARC Bennett, RN, HENRY, IRAM PACT communication analyst 10/22/2021 ADDENDUM STATUS: COMPLETED Alert to PCP and [facility] to determine if these have been completed. If not I can call and have them refaxed. /MARC Cherry, RN, HENRY, IRAM PACT communication analyst Signed: 10/22/2021 09:05 Receipt Acknowledged By: 10/22/2021 15:19 /zhanna LORA [facility] DECORATOR STORE 10/22/2021 12:37 /zhanna Cline D.O. Staff Physician 10/22/2021 ADDENDUM STATUS: COMPLETED Faxes received today, signed and placed in [facility] b in to fax back. /zhanna Cline D.O. Staff Physician Signed: 10/22/2021 12:38 10/22/2021 ADDENDUM STATUS: COMPLETED Forms faxed back. /es/ ESTHER LORA MSA DECORATOR STORE Signed: 10/22/2021 15:20
--- OUTSIDE RECORDS SUMMARY | 2022-05-21 11:08 | XMS_ITS | Encounter Summary ---
:1945 Author Organization [facility] rs Address [address] [place] [address] Support Name Relationship Address Phone AIMEE DURAN Unavailable [address] [place] [address] AIMEE DURAN Unavailable Unavailable RENEECARLO HANSON Unavailable [address] [phone] [place] [address] Insurance Providers: All historical and current Section [...] U-CARE OF MEDICARE MCR Sep 29, [id number] [phone] MILES HANSON SI PATIENT [facility] ADVANTAGE (WNR) 2019 003 00 4 MON (WNR) U-CARE OF MEDICARE MCR Sep 29, [id number] [phone] JANES Nguyen SI PATIENT [facility] (M) (WNR) 2008 1100 4 MON (WNR) U-CARE OF MEDICARE MCR Sep 29, [id number] [phone] JANES Nguyen SI PATIENT [facility] ADVANTAGE (WNR) 2008 1100 4 MON (WNR) [facility] MCR MEDICARE MCR Sep 29, [id number] [phone] MILES HANSON SI PATIENT (WNR) ADVANTAGE (WNR) 2019 003 00 5 MON [employer] MEDICARE MCR Sep 29, [id number] [phone] Ihsan DURAN I PATIENT [facility] (WNR) 2010 [id number] MON [facility] (WNR) Selected Encounter This section includes the information on record at [place] for the Encounter. Date/Time Encounter Type Encounter Reason Provider Source Description Oct 24, 2021 HC PRO PHONE TELEPHONE/MEDICIN ICD-10-CM E11.8 KRISTEN MONTELONGO 10:30 AM CALL 21-30 MIN E Type 2 diabetes mellitus with unspecified complications with Provider Comments: Type 2 diabetes mellitus ([facility] [id number]) IHE Encounter Template Text not used by [facility] Assessments - Encounter Diagnoses This section includes the primary and secondary diagnoses documented for the Encounter. Date/Time Primary/Secondary Diagnosis Name Provider Source Diagnosis Oct 24, 2021 PRIMARY Type 2 diabetes NOMI MONTELONGO [facility] 10:30 AM mellitus with HCS unspecified complications Plan of Treatment: Future Appointments (+ 6 months) and Future Tests (+/- 45 days) The Plan of Treatment section includes future care activities for the patient from all [place] treatmentfacilities. This section includes future appointments and future orders which are active, pending orscheduled.Future Appointments This section includes appointments that were scheduled to occur 6 months from the date of the Encounter, up to a maximum of 20 appointments. The data comes from all [place] treatment facilities. Appointment Date/Time Appointment Type Appointment Facili ty Name Nov 09, 2021 10:00 AM AMBULATORY - NONE [facility] Nov 21, 2021 11:30 AM AMBULATORY - MEDICINE [facility] Nov 30, 2021 08:30 AM AMBULATORY - NEUROLOGY [facility] Nov 30, 2021 10:30 AM AMBULATORY - SURGERY [facility] Dec 18, 2021 09:00 AM AMBULATORY - MEDICINE [facility] Dec 21, 2021 10:30 AM AMBULATORY - SURGERY [facility] Jan 21, 2022 05:20 PM AMBULATORY - REHAB [facility]ICINE [facility] February 06, 2022 09:45 AM AMBULATORY - MEDICINE [facility] February 07, 2022 09:00 AM AMBULATORY - NONE [facility] February 07, 2022 10:00 AM AMBULATORY - NONE [facility] Feb 27, 2022 01:15 PM AMBULATORY - NONE [facility] Mar 04, 2022 01:30 PM AMBULATORY - NONE [facility] Mar 11, 2022 09:00 AM AMBULATORY - REHAB MEDICINE [facility] Apr 22, 2022 03:30 PM AMBULATORY - NONE [facility] Lab Results: +/- 30 days of the encounter This section includes the Chemistry and Hematology Lab Results on record with [place] for the patient. Radiology Reports and Pathology Reports are provided separately, in subsequent sections.Lab Results This section contains the Chemistry/Hematology Results that were resulted 30 days before or 30 daysafter the date of the Encounter. Date/Time Source Result Type Result - Unit Interpretation Reference Range Comment Oct 11, 2021 08:[address] [facility] HEMOGLOBIN A1C Specim en Type: BLOOD No comment enter ed. Ordering Provid er: LONA PALACIO Report Released Date/Time: Jun 14, 2021 10:16 AM Reporting Lab: [facility] [address] [facility] [id number] Performing Lab: [facility] [address] [facility] [id number] HEMOGLOBIN A1C 10.2 H 4.0-6.0 Social History: Smoking Status (Most current) and Tobacco Use (All prior to encounter date) This section includes the most current, and the historical, smoking and tobacco-related health factors from the [place] facility where the Encounter took place.Current Smoking Status This section includes the most current smoking, or tobacco-related health factor, from the [place] facility where the Encounter took place. Date/Time Current Smoking Status Comment Facility Jun 13, 2020 10:00 AM [place]-TOBACCO FORMER USER [facility] Tobacco Use History This section includes a history of the smoking, or tobacco- related health factors, that were collected on or before the date of the Encounter. The data comes from the [place] facility where the Encounter took place. Date/Time Smoking Status/Tobacco Use Comment [facility] Jun 13, 2020 10:00 AM VA-TOBACCO QUIT [address] [facility] May 20, 2019 12:18 PM VA-TOBACCO FORMER USER [facility] May 20, 2019 12:18 PM VA-TOBACCO QUIT [address] [facility] Jul 30, 2018 08:31 AM VA-TOBACCO FORMER USER [facility] Jul 30, 2018 08:31 AM VA-TOBACCO QUIT [address] [facility] Aug 25, 2017 08:04 AM FORMER TOBACCO USER 7Y OR GRE[address] [facility] Nov 08, 2016 08:12 AM FORMER TOBACCO USER 7Y OR [address] [facility] Nov 29, 2015 12:46 PM FORMER TOBACCO USER 7Y OR [address] [facility] February 23, 2015 12:57 PM FORMER TOBACCO USER 7Y OR [facility] [facility] January 27, 2014 10:10 AM FORMER TOBACCO USER 7Y OR GRE[address] [facility] Mar 17, 2007 09:11 AM FORMER TOBACCO USER 7Y OR GRE[address] [facility] Advance Directives: All historical and current Section Date Range: From patient's date of to the date document was created. This section includes ALL of a patient's completed or amended [place] Advance and Rescinded Directives. The entries below indicate that a directive exists for the patient, but an actual copy is not included with this document. The data comes from all [place] facilities. Date Advance Directives Provider Source Mar 17, 2007 ADVANCE DIRECTIVE ALBERTO RODRIGUEZ [facility] Encounter Notes: All associated encounter notes This section contains the clinical notes associated to the Encounter. Date/Time Encounter Note(s) Provider Source Oct 24, 2021 11:53 AM REPORT OF CONTACT: NOMI MONTELONGO [facility] LOCAL TITLE: PATIENT CONTACT NOTE STANDARD TITLE: REPORT OF CONTACT DATE OF NOTE: OCT 24, 2021@11:53 ENTRY DATE: OCT 24, 2021@11:53:42 AUTHOR: NOMI MONTELONGO EXP COSIGNER: URGENCY: STATUS: COMPLETED DIABETES: Type of visit: 2wk RN phone appt to review blood sugars Patient History: T2DM Allergies: PENICILLIN (Mar 17, 2007) SULFA DRUGS (Mar 17, 2007) DOXYCYCLINE (Jul 11, 2010) LISINOPRIL (Jul 22, 2011) AMLODIPINE (Nov 19, 2017) ACTIVE DIABETIC MEDICATIONS: Aspart take what he thinks he needs varies 10 -33 units Glargine 34 units qday Other: empagliflozin 25mg qday SELF BLOOD GLUCOSE MONITORING: Date :- :30- 08:00- 11:00- 12:30- 17:00- 18:30- :30- 05:29 07:59 10:59 12:29 16:59 18:29 21:29 23:59 Sep high 96 373 Sep 469 157 Sep 136 334 Sep 181 350 425 Sep 198 406 183 244 Sep 256 273 348 190 329 Sep 250 341 169 420 458 Sep 123 217 220 Sep 403 295 Sep 249 177 296 Sep 204 Comment: Unclear when readin gs were checked in relation to meals. He checks his blood sugars when he thinks of it. A goal he is working on with CarlosMauro Domi is to check before meals, ongoing. He is not sure what would be helpful to remind him to test before meals. TYPICAL DIET: Breakfast: sausage today, yesterday Cheerios Lunch: yesterday coconut shrimp salad and soup Dinner: was unsure what he ate last night Snack: reports seldum snacking, last evening ic e cream REPORTED ACTIVITY & EXERCISE: Started back to the gym recently, reports he is more active in the summer. PLAN: Collaborated with participant(s) who is/are in agreement with the following plan: SELF MONITORING: Monitor blood glucose levels on following sched ule: Goal is to test his blood sugars before meals. would like to be considered for a CGM, will a lert provider. [place] will need a diagnostic placed if provider is in agreement. MEDICATION CHANGES: Will alert provider to blood sugars. [place] is willing to start metformin if Dr. Palacio agrees, he did not talk to his PCP ab out metformin. FOLLOW UP: Metabolic RN clinic appt 11/21/21 Dr. [facility]acio[facility] clinic 01/24/22 /jeffry/ NOMI MONTELONGO RN Metabolic [employer] Brush Decorator Signed: 10/24/2021 12:36 Receipt Acknowledged By: * AWAITING SIGNATURE * LONA PALACIO
--- OUTSIDE RECORDS SUMMARY | 2022-05-21 11:08 | XMS_ITS | Encounter Summary ---
:1945 Author Organization [facility] rs Address [address] [place] [address] Support Name Relationship Address Phone AIMEE DURAN Unavailable [address] [place] [address] AIMEE DURAN Unavailable Unavailable RENEECARLO HANSON Unavailable [address] [phone] [place] [address] Insurance Providers: All historical and current Section [...] U-CARE OF MEDICARE MCR Sep 29, [id number]_ [id number] [phone] MILES HANSON SI PATIENT [facility] ADVANTAGE (WNR) 2019 003 00 4 MON (WNR) U-CARE OF MEDICARE MCR Sep 29, [id number] [phone] JANES Nguyen SI PATIENT [facility] (M) (WNR) 2008 1100 4 MON (WNR) U-CARE OF MEDICARE MCR Sep 29, [id number] [phone] JANES Nguyen SI PATIENT [facility] ADVANTAGE (WNR) 2008 1100 4 MON (WNR) [facility]ARE MCR MEDICARE MCR Sep 29, [id number] [phone] MILES HANSON SI PATIENT (WNR) ADVANTAGE (WNR) 2019 003 00 5 MON [facility] MEDICARE MCR Sep 29, [id number] [phone] Ihsan DURAN I PATIENT [facility] (WNR) 2010 [id number] MON [facility] (WNR) Selected Encounter This section includes the information on record at [place] for the Encounter. Date/Time Encounter Type Encounter Description Reason Provider Source Oct 10, 2021 08:50 Outpatient Encounter [facility] AM CONSULT IHE Encounter Template Text not used by [place] Plan of Treatment: Future Appointments (+ 6 months) and Future Tests (+/- 45 days) The Plan of Treatment section includes future care activities for the patient from all [place] treatmentfacilities. This section includes future appointments and future orders which are active, pending orscheduled.Future Appointments This section includes appointments that were scheduled to occur 6 months from the date of the Encounter, up to a maximum of 20 appointments. The data comes from all [place] treatment facilities. Appointment Date/Time Appointment Type Appointment Facili ty Name Oct 11, 2021 08:30 AM AMBULATORY - NONE [facility] Oct 11, 2021 08:45 AM AMBULATORY - MEDICINE [facility] Oct 11, 2021 09:30 AM AMBULATORY - MEDICINE [facility] Oct 24, 2021 10:30 AM AMBULATORY - MEDICINE [facility] Nov 09, 2021 10:00 AM AMBULATORY - NONE [facility] Nov 21, 2021 11:30 AM AMBULATORY - MEDICINE [facility] Nov 30, 2021 08:30 AM AMBULATORY - NEUROLOGY [facility] Nov 30, 2021 10:30 AM AMBULATORY - SURGERY [facility] Dec 18, 2021 09:00 AM AMBULATORY - MEDICINE [facility] Dec 21, 2021 10:30 AM AMBULATORY - SURGERY [facility] Jan 21, 2022 05:20 PM AMBULATORY - REHAB MEDICINE [facility] February 06, 2022 09:45 AM AMBULATORY - MEDICINE [facility] February 07, 2022 09:00 AM AMBULATORY - NONE [facility] February 07, 2022 10:00 AM AMBULATORY - NONE [facility] Feb 27, 2022 01:15 PM AMBULATORY - NONE [facility] Mar 04, 2022 01:30 PM AMBULATORY - NONE [facility] Mar 11, 2022 09:00 AM AMBULATORY - REHAB MEDICINE [facility] Lab Results: +/- 30 days of the encounter This section includes the Chemistry and Hematology Lab Results on record with [place] for the patient. Radiology Reports and Pathology Reports are provided separately, in subsequent sections.Lab Results This section contains the Chemistry/Hematology Results that were resulted 30 days before or 30 daysafter the date of the Encounter. Date/Time Source Result Type Result - Unit Interpretation Reference Range Comment Oct 11, 2021 08:16 AM [facility] HEMOGLOBIN A1C Specim en Type: BLOOD No comment enter ed. Ordering Provid er: LONA PALACIO Report Released Date/Time: Jun 14, 2021 10:16 AM Reporting Lab: [facility] [address] [facility] [id number] Performing Lab: [facility] [address] [facility] [address] HEMOGLOBIN A1C 10.2 H 4.0-6.0 Social History: Smoking Status (Most current) and Tobacco Use (All prior to encounter date) This section includes the most current, and the historical, smoking and tobacco-related health factors from the [place] facility where the Encounter took place.Current Smoking Status This section includes the most current smoking, or tobacco-related health factor, from the [facility] where the Encounter took place. Date/Time Current Smoking Status Comment Facility Jun 13, 2020 10:00 AM [place]-TOBACCO FORMER USER [facility] Tobacco Use History This section includes a history of the smoking, or tobacco- related health factors, that were collected on or before the date of the Encounter. The data comes from the [place] facility where the Encounter took place. Date/Time Smoking Status/Tobacco Use Comment [facility] it Jun 13, 2020 10:00 AM [place]-TOBACCO QUIT 15 YRS OR MORE [facility] May 20, 2019 12:18 PM VA-TOBACCO FORMER USER [facility] May 20, 2019 12:18 PM VA-TOBACCO QUIT 15 YRS OR MORE [facility] Jul 30, 2018 08:31 AM VA-TOBACCO FORMER USER [facility] Jul 30, 2018 08:31 AM [place]-TOBACCO [...] ALL of a patient's completed or amended [place] Advance and Rescinded Directives. The entries below indicate that a directive exists for the patient, but an actual copy is not included with this document. The data comes from all [place] facilities. Date Advance Directives Provider Source Mar 17, 2007 ADVANCE DIRECTIVE ALBERTO RODRIGUEZ [facility] Encounter Notes: All associated encounter notes This section contains the clinical notes associated to the Encounter. Date/Time Encounter Note(s) Provider Source Oct 10, 2021 08:50 AM PHARMACY NOTE: NABEEL WALLER IS [facility] LOCAL TITLE: PHARMACY NON [place] CARE MEDICATIONS STANDARD TITLE: PHARMACY NOTE DATE OF NOTE: OCT 10, 2021@08:50 ENTRY DATE: OCT 10, 2021@08:50:26 AUTHOR: NABEEL WALLER EXP COSIGNER: URGENCY: STATUS: COMPLETED [facility] R ECEIVED electronic prescription(s) (eRX(s))from NON- [facility] Provider: DEBORAH BREWER Date eRX received: Sep Outside (NON-[facility]) provider no t authorized to write for prescription(s) through [place] pharmacy. Prescription request REDIRECTED via FAX to one o f the following for review: [X][facility] [ ]Other: [ ] [facility]) [ ] [facility] [ ] [facility] [ ] [facility] eRx Reference #: [id number] eRx Prescription Information: eRx Drug: torsemide 20 mg tablet (DEMADEX) eRx Qty: 90 eRx Refills: 3 eRx Days Supply: eRx Written Date: OCT 09, 2021 eRx Issue Date: Prohibit Renewals: No eRx Sig: Take 1 tablet (20 mg total) by mouth every morni ng before breakfast. eRx Reference #: [id number] eRx Drug: losartan 25 mg tablet (COZAAR) eRx Qty: 180 eRx Refills: 3 eRx Days Supply: eRx Written Date: OCT 09, 2021 eRx Issue Date: Prohibit Renewals: No eRx Sig: Take 2 tablets (50 mg total) by mouth daily. /jeffry/ NABEEL WALLER PharmD Signed: 10/10/2021 08:51
--- OUTSIDE RECORDS SUMMARY | 2022-05-21 11:08 | XMS_ITS | Encounter Summary ---
:1945 Author Organization [facility] rs Address [address] [place] [address] Support Name Relationship Address Phone AIMEE DURAN Unavailable [address] [place] [address] AIMEE DURAN Unavailable Unavailable RENEE, CARLO Unavailable [address] [phone] [place] [address] Insurance Providers: All historical and current Section [...] U-CARE OF MEDICARE MCR Sep 29, [id number] [phone] MILES HANSON SI PATIENT [place] [facility] AD[place]AGE (WNR) 2019 003 00 4 MON (WNR) U-CARE OF MEDICARE MCR Sep 29, [id number] [phone] JANES Nguyen SI PATIENT [place] [facility] ([place]) (WNR) 2008 1100 4 MON (WNR) U-CARE OF MEDICARE MCR Sep 29, [id number] [phone] JAENS Nguyen SI PATIENT [place] [facility] [place] (WNR) 2008 1100 4 MON (WNR) [facility]ARE MCR MEDICARE MCR Sep 29, [id number]_ [id number] [phone] MILES HANSON SI PATIENT (WNR) ADVANTAGE (WNR) 2019 003 00 5 MON [facility] MEDICARE MCR Sep 29, [id number] [phone] Ihsan DURAN I PATIENT [place] ADVANTAGE (WNR) 2010 [id number] MON [facility] (WNR) Selected Encounter This section includes the information on record at [place] for the Encounter. Date/Time Encounter Type Encounter Reason Provider Source Description Oct 11, 2021 OFFICE O/P EST ENDOCRINOLOGY ICD-10-CM E11.65 LAMAR PALACIO 09:30 AM MOD 30-39 MIN Type 2 diabetes AR D mellitus with hyperglycemia with Provider Comments: Type 2 Diabetes Mellitus with Hyperglycemia IHE Encounter Template Text not used by [facility] Assessments - Encounter Diagnoses This section includes the primary and secondary diagnoses documented for the Encounter. Date/Time Primary/Secondary Diagnosis Name Provider Source Diagnosis Oct 17, 2021 PRIMARY Type 2 diabetes RYAN PALACIO [facility] 08:09 PM mellitus with AR D HCS hyperglycemia Plan of Treatment: Future Appointments (+ 6 months) and Future Tests (+/- 45 days) The Plan of Treatment section includes future care activities for the patient from all [place] treatmentfacilities. This section includes future appointments and future orders which are active, pending orscheduled.Future Appointments This section includes appointments that were scheduled to occur 6 months from the date of the Encounter, up to a maximum of 20 appointments. The data comes from all [place] treatment facilities. Appointment Date/Time Appointment Type Appointment Facili ty Name Oct 24, 2021 10:30 AM AMBULATORY - MEDICINE [facility] CS Nov 09, 2021 10:00 AM AMBULATORY - NONE [facility] Nov 21, 2021 11:30 AM AMBULATORY - MEDICINE [facility] CS Nov 30, 2021 08:30 AM AMBULATORY - NEUROLOGY [facility] Nov 30, 2021 10:30 AM AMBULATORY - SURGERY [facility] S Dec 18, 2021 09:00 AM AMBULATORY - MEDICINE [facility] CS Dec 21, 2021 10:30 AM AMBULATORY - SURGERY [facility] S Jan 21, 2022 05:20 PM AMBULATORY - REHAB MEDICINE [facility] February 06, 2022 09:45 AM AMBULATORY - MEDICINE [facility] H CS February 07, 2022 09:00 AM AMBULATORY - NONE [facility] February 07, 2022 10:00 AM AMBULATORY - NONE [facility] Feb 27, 2022 01:15 PM AMBULATORY - NONE [facility] Mar 04, 2022 01:30 PM AMBULATORY - NONE [facility] Mar 11, 2022 09:00 AM AMBULATORY - REHAB MEDICINE [facility] Lab Results: +/- 30 days of the encounter This section includes the Chemistry and Hematology Lab Results on record with [place] for the patient. Radiology Reports and Pathology Reports are provided separately, in subsequent sections.Lab Results This section contains the Chemistry/Hematology Results that were resulted 30 days before or 30 daysafter the date of the Encounter. Date/Time Source Result Type Result - Unit Interpretation Reference Range Comment Oct 11, 2021 08:16 AM [facility] HEMOGLOBIN A1C Specim en Type: BLOOD No comment enter ed. Ordering Provid er: LONA PALACIO Report Released Date/Time: Jun 14, 2021 10:16 AM Reporting Lab: [facility] [address] [facility] [id number] Performing Lab: [facility] [address] [facility] [address] HEMOGLOBIN A1C 10.2 H 4.0-6.0 Vital Signs: All taken on the encounter date This section contains inpatient and outpatient Vital Signs collected on the date of the Encounter. Date/Time Temperature Pulse Blood Respiratory SP02 Pain Height Weight Luis Alberto dy Source Pressure Rate Mass Index Oct 11, 98.8 F 55 137/71 16 /min 97 % 0 214 lb 27 [place] 2021 09:26 /min mm[Hg] [facility] Social History: Smoking Status (Most current) and Tobacco Use (All prior to encounter date) This section includes the most current, and the historical, smoking and tobacco-related health factors from the [place] facility where the Encounter took place.Current Smoking Status This section includes the most current smoking, or tobacco-related health factor, from the [place] facility where the Encounter took place. Date/Time Current Smoking Status Comment Facility Jun 13, 2020 10:00 AM [place]-TOBACCO QUIT 15 YRS OR MORE [facility] Tobacco Use History This section includes a history of the smoking, or tobacco- related health factors, that were collected on or before the date of the Encounter. The data comes from the [place] facility where the Encounter took place. Date/Time Smoking Status/Tobacco Use Comment Faith mccoy Jun 13, 2020 10:00 AM [place]-TOBACCO QUIT 15 YRS OR MORE [facility] May 20, 2019 12:18 PM [place]-TOBACCO FORMER USER [facility] May 20, 2019 12:18 PM [place]-TOBACCO QUIT 15 YRS OR MORE [facility] Jul 30, 2018 08:31 AM [place]-TOBACCO FORMER USER [facility] Jul 30, 2018 08:31 AM [place]-TOBACCO QUIT 15 YRS OR MORE [facility] Aug 25, 2017 08:04 AM FORMER TOBACCO USER 7Y OR GREATER [facility] Nov 08, 2016 08:12 AM FORMER TOBACCO USER 7Y OR GREATER [facility] Nov 29, 2015 12:46 PM FORMER TOBACCO USER 7Y OR GREATER [facility] February 23, 2015 12:57 PM FORMER TOBACCO USER 7Y OR GREATER [facility] January 27, 2014 10:10 AM FORMER TOBACCO USER 7Y OR GREATER [facility] Mar 17, 2007 09:11 AM FORMER TOBACCO USER 7Y OR GREATER [facility] Advance Directives: All historical and current Section Date Range: From patient's date of to the date document was created. This section includes ALL of a patient's completed or amended [place] Advance and Rescinded Directives. The entries below indicate that a directive exists for the patient, but an actual copy is not included with this document. The data comes from all [place] facilities. Date Advance Directives Provider Source Mar 17, 2007 ADVANCE DIRECTIVE ALBERTO RODRIGUEZ [facility] Encounter Notes: All associated encounter notes This section contains the clinical notes associated to the Encounter. Date/Time Encounter Note(s) Provider Source Oct 11, 2021 09:36 AM ENDOCRINOLOGY ATTENDING NOTE: JAKE PALACIO [facility] LOCAL TITLE: METABOLIC CLINIC NOTE STANDARD TITLE: ENDOCRINOLOGY ATTENDING NOTE DATE OF NOTE: OCT 11, 2021@09:36 ENTRY DATE: OCT 11, 2021@09:36:14 AUTHOR: LONA PALACIO EXP COSIGNER: URGENCY: STATUS: COMPLETED Endocrine/Metabolic Clinic Note Endocrine/Metabolic Clinic Note Nursing note reviewed and agree. Chief Complaint: 76 year old MALE referred for [facility] up evaluation of diabetes History of Present Illness: reviewed and relevant, as extracted from earlier visit note: 75 yo male with PMH of HTN, HL, DM2, CHF, Asthm a, Depression. Pt has outside PCP (Dr. Yared guevara) and [facility] (Dr. Manuel Evans) who manage his medications. His diabetes is managed here at [place] with clinical pharmacist. Pt has had several [...] to keep his diabetic care solely through t [facility]. He mentions that his diet is relatively [...] 0 0 0 2 0 0 0 Last visit we discussed that he would benefit fr om working with our nutrition CDE, Zoya to get better matching of mealtime insu laureen with carb loads. Does not carb count now but is open to it. Basal was also increased some at last visit. Since last seen he notes the following-- --difficult interim period for pt who no more a recurrence of bladder CA and gas completed a 2-mo course of chemotx finishing a c ouple of weeks ago --depression was also signif icant issue at times w/in this timeframe, now better --he notes he is getting back to baseline --aiming to check BS 4-5 times daily. we discuss ed that at this time his timepoints to check (which c ould be modified in the future depending on the kind of data needed) can be preme als and at bedtime at this time. He was given a new meter and plans to do this --goal with self monitoring is to get a better m ealtime ins/food match. he is working with Zoya Duron on carb counting. --I also disucssed with him his c-peptid e level within last few mo which is in the normal range; we have op portunity to decrease his insulin needs (working on reduction of mealtime bolus first) by ad ding incretin or sensitzer therapy. He reminded me he had been on metformin prior, stop ped when in acult CHF, but as not having any side effects ad CHF is much better now. He also discussed history of pancreatitic CA (was seen at [facility] and this was diagnosed a few years ago, he started creon and then self-discontinued that an d has not had any issues with pain. Did not feel that the creon was re ally helpful. does have some issues at times with BM changes/loose BMs more so since en --current aspart: variable dosing sometimes comi ng after he eats and checks sugars (knows we want a preemptive approach with checking before and dosing based on premeal BS + the ca rb load in the meal and he is ready to focus on this goal). estimates he may give around 70 U daily --current glargine 34 U --gets some care at [facility]; PCP he sees there is Coleman Davis. Diabetes Complications: Retinopathy: gets regular eye exams, none Neuropathy: none Nephropathy: on ACEi LDL goal:On sttain Past Medical History: Active problems - Computerized Problem List is t he source for the followin. Hypertension (SNOMED CT 76618250) 2. Hyperlipidemia (SNOMED CT 69019087) 3. Tinnitus * 4. 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 Asthma (SNOMED CT 999710517) 6. Diabetic retinopathy (SNOMED CT 0833378) 7. Type 2 diabetes mellitus (SNOMED CT 06524464 ) 8. Umbilical hernia (SNOMED CT 017128648) 9. Obstructive sleep apnea (SNOMED CT 83060081) 10. Obesity * - 10 TOPIC GRAD 07-09-2012* 244.0 --> 09-17-12* 243.2 lbs 11. Anemia 12. Rosacea 13. Carcinoma of bladder 14. Depression (SCT 88002171) - prescribed by anson for depression 15. Congestive heart failure Allergies: [...] TAKE ONE TABLET BY MOUTH EVERY DAY ACTIVE ESCITALOPRAM OXALATE 10MG TAB TAKE ONE TABLET BY MOUTH ACTIVE EVERY DAY FOR MOOD GLUCOSE 4GM CHEW TAB CHEW FOUR TABLETS BY MOUTH NEEDED ACTIVE FOR LOW BLOOD SUGAR INDOMETHACIN 25MG CAP TAKE ONE TO TWO CAPSULES B Y MOUTH ACTIVE THREE TIMES A DAY NEEDED GOUT EXACERBATION INSULIN,ASPART 100UN/ML JACKI FLEXPEN 3ML INJECT 10 [...] ONE-HALF TABLET BY MOUTH EVERY DAY ACTIVE (S) METOPROLOL SUCCINATE 50MG SA TAB TAKE ONE-HALF T ABLET BY ACTIVE MOUTH EVERY DAY FOR HEART FAILURE AND BLOOD PRE SSURE NEEDLE,PEN 31G,5MM USE 1 NEEDLE UNDER THE SKIN A S DIRECTED ACTIVE *DISPOSE OF IN A HARD-PLASTIC CONTAINER WITH A SCREW-ON LID CONTACT GARBAGE PRESTON FOR PROPER DISPOSA L TORSEMIDE 20MG TAB TAKE TWO TABLETS BY MOUTH TWI CE A DAY ACTIVE FOR SWELLING *TAKE IN MORNING AND AT NOON* TRAZODONE HCL 50MG TAB TAKE ONE TABLET BY MOUTH AT BEDTIME ACTIVE NEEDED FOR SLEEP MEDICATION RECONCILIATION Outpatient At this visit I have reviewed the medication li st, and discussed relevant medications with the patient/surrogate . An updated patient medication list was given to the participant(s). No Change Review of Systems: Constitutional/endo Physical Exam: Vital Signs Temp: 98.8 F [37.1 C] (10/11/2021 09:26) B/P: 137/71 (10/11/2021 09:26) Pulse: 55 (10/11/2021 09:26) Ht: 74.5 in [189.2 cm] (05/15/2021 09:36) Wt: 214 lb [97.3 kg] (10/11/2021 09:26) Pain: 0 (10/11/2021 09:26) BMI: 27.2 General: HEENT: Extremities: Ext: no c/c/e currently (an d notes he has been able to cut back some on his CHF meds) Today's Labs: HGB A1C: 10.2 H Assessment and Plan: 76 year old MALE referred for initial evaluation and management of type 2 DM, recently with nl c-peptide plans-- --phone visit with Nomi in 2 wks for sug ars review; insulin adjustment then as needed based on new data. I also discuss ed potential to add new medication (nl c-peptide) with reduction of Novolog--could cons ider metformin. he is also going to review that with hi s PCP--do they have any concerns? Potential concerns about using GLP1 agonist giv en the possible pancreatitis issues. If records are in [facility] will want to review those--we could reque st if not available. alerting Nomi here by way of co-sign to follow up with pt . --continue working with Zoya Duron on carb counting/mealtime insulin/carb matching (has that follow appointment about a mo from now ) --RTC with me again in 3 mo with labs approx 35 minute visit same day was spent (couns elinf F2F) combined with previsit prep and post visit follow up care. /jeffry/ LONA PALACIO MD PHYSICIAN Signed: 10/17/2021 20:10 Receipt Acknowledged By: * AWAITING SIGNATURE * NOMI MONTELONGO Oct 11, 2021 09:27 AM INTERNAL MEDICINE OUTPATIENT NOTE: CORDELIA AC [facility] LOCAL TITLE: MEDICINE CLINIC NURSING NOTE STANDARD TITLE: INTERNAL MEDICINE OUTPATIENT NOT E DATE OF NOTE: OCT 11, 2021@09:27 ENTRY DATE: OCT 11, 2021@09:27:59 AUTHOR: CORDELIA AC EXP COSIGNER: URGENCY: STATUS: COMPLETED TYPE OF VISIT: Appointment Check In Type of appointment: In-person appointment REASON FOR VISIT: Scheduled clinic visit ALLERGIES: PENICILLIN (Mar 17, 2007) SULFA DRUGS (Mar 17, 2007) DOXYCYCLINE (Jul 11, 2010) LISINOPRIL (Jul 22, 2011) AMLODIPINE (Nov 19, 2017) VITAL SIGNS: Blood Pressure: 137/71 (10/11/2021 09:26) Pulse: 55 (10/11/2021 09:26) Respiration: 16 (10/11/2021 09:26) Temperature: 98.8 F [37.1 C] (10/11/2021 09:26) Weight: 214 lb [97.3 kg] (10/11/2021 09:26) Height: 74.5 in [189.2 cm] (05/15/2021 09:36) BMI: 27.2 O2 Sat: 97 (10/11/2021 09:26) Pain: 0 (10/11/2021 09:26) PAIN SCREEN: Patient is not having significant pain that the y wish to discuss with their provider today. MEDICATION Over the Counter/Herbal Medications: The patient states that they take some outside medications and/or herbals. Diabetes/Metabolic Clinic Glucometer: brought glucometer and results were sen t to [facility] /jeffry/ CORDELIA AC LPN Licensed Practical Nurse Signed: 10/11/2021 09:28
--- OUTSIDE RECORDS SUMMARY | 2022-05-21 11:09 | XMS_ITS | Encounter Summary ---
:1945 Author Organization [facility] rs Address [address] [place] [address] Support Name Relationship Address Phone AIMEE DURAN Unavailable [address] [place] [address] AIMEE DURAN Unavailable Unavailable RENEECARLO HANSON Unavailable [phone] [phone] [place] [address] Insurance Providers: All historical and current Section [...] U-CARE OF MEDICARE MCR Sep 29, [id number]_ [id number] [phone] MILES HANSON SI PATIENT [facility] ADVANTAGE (WNR) 2019 003 00 4 MON (WNR) U-CARE OF MEDICARE MCR Sep 29, [id number] [phone] JANES Nguyen SI PATIENT [facility] (M) (WNR) 2008 1100 4 MON (WNR) U-CARE OF MEDICARE MCR Sep 29, [id number] [phone] JANES Nguyen SI PATIENT [facility] ADVANTAGE (WNR) 2008 1100 4 MON (WNR) [facility]ARE MCR MEDICARE MCR Sep 29, [id number]_ [id number] [phone] MILES HANSON SI PATIENT (WNR) ADVANTAGE (WNR) 2019 003 00 5 MON [employer] MEDICARE MCR Sep 29, [id number] [phone] RENEE,S I PATIENT [facility] (WNR) 2010 [id number] MON [facility] (WNR) Selected Encounter This section includes the information on record at [place] for the Encounter. Date/Time Encounter Type Encounter Description Reason Provider Source Dec 21, 2021 10:03 Outpatient Encounter TELEPHONE/MEDICINE AM IHE Encounter Template Text not used by [place] Plan of Treatment: Future Appointments (+ 6 months) and Future Tests (+/- 45 days) The Plan of Treatment section includes future care activities for the patient [facility] [place] [facility] This section includes future appointments and future orders which are active, pending orscheduled.Future Appointments This section includes appointments that were scheduled to occur 6 months from the date of the Encounter, up to a maximum of 20 appointments. The data comes from all [place] treatment [facility]. Appointment Date/Time Appointment Type Appointment Facili ty Name Jan 21, 2022 05:20 PM AMBULATORY - REHAB MEDICINE [facility] February 06, 2022 09:45 AM AMBULATORY - MEDICINE [facility] February 07, 2022 09:00 AM AMBULATORY - NONE [facility] February 07, 2022 10:00 AM AMBULATORY - NONE [facility] Feb 27, 2022 01:15 PM AMBULATORY - [facility] Mar 04, 2022 01:30 PM AMBULATORY - [facility] Mar 11, 2022 09:00 AM AMBULATORY - REHAB MEDICINE [facility] Apr 22, 2022 03:30 PM AMBULATORY [facility] May 06, 2022 10:30 AM AMBULATORY - REHAB [facility] Active, Pending, and Scheduled Orders This section includes a listing of several types of active, pending, and scheduled orders, including clinic medications orders, diagnostic test orders, procedure orders and consult orders; where the start date of the order is 45 days before the date of the Encounter or 45 days after the date of the Encounter. The data comes from all [facility]. Test Date/Time Test Type Test Details Facility Name Dec 24, 2021 08:07 AM Consult Order [facility] GEN SERV Cons Sheet Metal Erector's Choice Jan 09, 2022 12:00 AM Laboratory - Chemistry HEMOGLOBIN A1C BLOO Coleman [facility] Order SP ONCE Jan 09, 2022 12:00 AM Laboratory - Chemistry BASIC METABOLIC [facility] Order PANEL+MG PLASMA SP ONCE Jan 09, 2022 12:00 AM Laboratory - Chemistry MICROALBUMIN/CREATI CARLINE [facility] Order E RATIO URINE URINE WC ONCE Lab Results: +/- 30 days of the [...] Interpretation Reference Range Comment Nov 30, 2021 [facility] COVID-19 AND FLU/RSV DIAG Sp ecimen Type: NASOPHARYNGEAL 07:55 AM PANEL(CEPHEID) Comment: Cephei d GeneXpert (618) Ordering Provid er: SAHARA CEVALLOS Report Released Date/Time: Nov 28, 2021 09:05 AM Reporting Lab: [facility] [address] Performing Lab: [facility] [address] COVID-19 (CEPHEID) DETECTED HH Not Detecte d INFLUENZA A (PCR) Not Detected Not Detec geovanny INFLUENZA B (PCR) Not Detected Not Detec geovanny RSV (PCR) Not Detected Not Detected Vital Signs: All taken on the encounter date This section contains inpatient and outpatient Vital Signs collected on the date of the Encounter. Date/Time Temperature Pulse Blood Respiratory SP02 Pain Height Weight Luis Alberto dy Source Pressure Rate Mass Index Dec 21, 97.7 F 52 142/69 [place] 2021 10:36 /min mm[Hg] [facility] Social History: Smoking Status (Most current) and Tobacco Use (All prior to encounter date) This section includes the most current, and the historical, smoking and tobacco-related health factors from the [place] facility where the Encounter took place.Current Smoking Status This section includes the most current smoking, or tobacco-related health factor, from the [place] facility where the Encounter took place. Date/Time Current Smoking Status Comment Facility Jun 13, 2020 10:00 AM [place]-TOBACCO FORMER USER [facility] Tobacco Use History This section includes a history of the smoking, or tobacco- related health factors, that were collected on or before the date of the Encounter. The data comes from the [place] facility where the Encounter took place. Date/Time Smoking Status/Tobacco Use Comment [facility] Jun 13, 2020 10:00 AM [place]-TOBACCO QUIT 15 YRS OR MORE [facility] May 20, 2019 12:18 PM [place]-TOBACCO FORMER USER [facility] May 20, 2019 12:18 PM VA-TOBACCO QUIT 15 YRS OR MORE [facility] Jul 30, 2018 08:31 AM VA-TOBACCO FORMER USER [facility] Jul 30, 2018 08:31 AM VA-TOBACCO QUIT 15 YRS OR MORE [facility] Aug 25, 2017 08:04 AM FORMER TOBACCO USER 7Y OR GREATER [facility] Nov 08, 2016 08:12 AM FORMER TOBACCO USER 7Y OR GREATER [facility] Nov 29, 2015 12:46 PM FORMER TOBACCO USER 7Y OR GREATER [facility] February 23, 2015 12:57 PM FORMER TOBACCO USER 7Y OR GREATER [facility] January 27, 2014 10:10 AM FORMER TOBACCO USER 7Y OR GREATER [facility] Mar 17, 2007 09:11 AM FORMER TOBACCO USER 7Y OR GREATER [facility] Advance Directives: All historical and [...] Mar 17, 2007 ADVANCE DIRECTIVE ALBERTO RODRIGUEZ [facility] Encounter Notes: All associated encounter notes This section contains the clinical notes associated to the Encounter. Date/Time Encounter Note(s) Provider Source Dec 21, 2021 10:03 AM REPORT OF CONTACT: DEBRA WALLS [facility] LOCAL TITLE: APPOINTMENT SCHEDULING NOTE STANDARD TITLE: REPORT OF CONTACT DATE OF NOTE: DEC 21, 2021@10:03 ENTRY DATE: DEC 21, 2021@10:03:33 AUTHOR: DEBRA WALLS EXP COSIGNER: URGENCY: STATUS: COMPLETED APPOINTMENT SCHEDULING NOTE Has ADDENDA Attempt to schedule return to clinic 1st Contact: Called at: Nov Left message Phone number left for to call back: [phone] 2nd Contact: Sent letter by regular [place] mail [place] [address] [place] [address] If [place] calls back, schedule appointment for : Activity: 12/18/2021 09:27 New Order entered by RUDDY MONTELONGO ([facility]) Order Text: Return to [facility] METABOLIC PHONE ADONAY Santos RN on or around ( February 21, 2022 ) for a total of 1 appointment(s) blood sugar follow-up Nature of Order: POLICY Is the RTC marked as no later than? No /jeffry/ DEBRA FREEDMAN Signed: 12/21/2021 10:04 01/01/2022 ADDENDUM STATUS: COMPLETED 's called and stated has had a stroke and is in a rehab setting now. She would like to call back to wanda borges at a later time for the appointment /jeffry/ DEBRA FREEDMAN Signed: 01/01/2022 08:23 01/07/2022 ADDENDUM STATUS: COMPLETED Failed mandated scheduling effort. RTC h as been cancelled. Please schedule RTC phone call with metabolic RN if would li ke to schedule. /jeffry/ DEBRA FREEDMAN Signed: 01/07/2022 07:43
--- OUTSIDE RECORDS SUMMARY | 2022-05-21 11:09 | XMS_ITS | Encounter Summary ---
:1945 Author Organization [facility] rs Address [address] [place] [id number] Support Name Relationship Address Phone AIMEE DURAN Unavailable [address] [place] [address] AIMEE DURAN Unavailable Unavailable RENEECARLO HANSON Unavailable [address] [phone] [place] [address] Insurance Providers: All historical and current Section [...] U-CARE OF MEDICARE MCR Sep 29, [id number] [phone] MILES HANSON SI PATIENT [facility] ADVANTAGE (WNR) 2019 003 [id number] 4 MON (WNR) U-CARE OF MEDICARE MCR Sep 29, [id number] [phone] JANES Nguyen SI PATIENT [facility] (M) (WNR) 2008 1100 4 MON (WNR) U-CARE OF MEDICARE MCR Sep 29, [id number] [phone] JANES Nguyen SI PATIENT [facility] ADVANTAGE (WNR) 2008 1100 4 MON (WNR) [facility] MCR MEDICARE MCR Sep 29, [id number] [phone] MILES HANSON SI PATIENT (WNR) ADVANTAGE (WNR) 2019 003 00 5 MON [facility] MEDICARE MCR Sep 29, [id number] [phone] RENEE,S I PATIENT [facility] (WNR) 2010 [id number] [facility] (WNR) Selected Encounter This section includes the information on record at [place] for the Encounter. Date/Time Encounter Type Encounter Reason Provider Source Description Dec 21, 2021 LIMIT ORAL EVAL DENTAL ICD-10-CM K08.531 MIESHA GONZALES 10:30 AM PROBLM FOCUS Fractured dental SHUA T restorative material with loss of material with Provider Comments: Fractured dental restorative material with loss of material IHE Encounter Template Text not used by [facility] Assessments - Encounter Diagnoses This section includes the primary and secondary diagnoses documented for the Encounter. Date/Time Primary/Secondary Diagnosis Name Provider Source Diagnosis Dec 21, 2021 PRIMARY Fractured dental FRANCISCA LANGLEY [facility] 11:23 AM restorative HCS material with loss of material Plan of Treatment: Future Appointments (+ 6 months) and Future Tests (+/- 45 days) The Plan of Treatment section includes future care activities for the patient from all [place] treatmentfacilities. This section includes future appointments and future orders which are active, pending orscheduled.Future Appointments This section includes appointments that were scheduled to occur 6 months from the date of the Encounter, up to a maximum of 20 appointments. The data comes from all [place] treatment [facility]. Appointment Date/Time Appointment Type Appointment Facili ty Name Jan 21, 2022 05:20 PM AMBULATORY - REHAB MEDICINE [facility] February 06, 2022 09:45 AM AMBULATORY - MEDICINE [facility] February 07, 2022 09:00 AM AMBULATORY - NONE [facility] February 07, 2022 10:00 AM AMBULATORY - NONE [facility] Feb 27, 2022 01:15 PM AMBULATORY - NONE [facility] Mar 04, 2022 01:30 PM AMBULATORY - [facility] Mar 11, 2022 09:00 AM AMBULATORY - REHAB MEDICINE [facility] Apr 22, 2022 03:30 PM AMBULATORY - [facility] May 06, 2022 10:30 AM AMBULATORY - REHAB MEDICINE [facility] Active, Pending, and Scheduled Orders This section includes a listing of several types of active, pending, and scheduled orders, including clinic medications orders, diagnostic test orders, procedure orders and consult orders; where the start date of the order is 45 days before the date of the Encounter or 45 days after the date of the Encounter. The data comes from all [place] treatment facilities. Test Date/Time Test Type Test Details Facility Name Dec 24, 2021 08:07 AM Consult Order [facility] GEN SERV Cons Steel Checker's Choice Jan 09, 2022 12:00 AM Laboratory - Chemistry HEMOGLOBIN A1C BLOO D [facility] Order SP ONCE Jan 09, 2022 12:00 AM Laboratory - Chemistry BASIC METABOLIC MIN CARLOS A [facility] Order PANEL+MG PLASMA SP ONCE Jan 09, 2022 12:00 AM Laboratory - Chemistry MICROALBUMIN/CREATI CARLINE [facility] Order E RATIO URINE URINE WC ONCE Lab Results: +/- 30 days of the encounter This section includes the Chemistry and Hematology Lab Results on record with [place] for the patient. Radiology Reports and Pathology Reports are provided separately, in subsequent sections.Lab Results This section contains the Chemistry/Hematology Results that were resulted 30 days before or 30 daysafter the date of the Encounter. Date/Time Source Result Type Result - Unit Interpretation Reference Range Comment Nov 30, 2021 [facility] COVID-19 AND FLU/RSV DIAG Sp ecimen Type: NASOPHARYNGEAL 07:55 AM PANEL(CEPHEID) Comment: Lencho hernandez GeneXpert (618) Ordering Provid er: SAHARA CEVALLOS Report Released Date/Time: Nov 28, 2021 09:05 AM Reporting Lab: [facility] [id number] Performing Lab: [facility] [id number] COVID-19 (CEPHEID) DETECTED HH Not Detecte d [...] 52 142/69 [place] 2021 10:36 /min mm[Hg] [facility] Social History: Smoking Status (Most current) and Tobacco Use (All prior to encounter date) This section includes the most current, and the historical, smoking and tobacco-related health factors from the [facility] where the Encounter took place.Current Smoking Status This section includes the most current smoking, or tobacco-related health factor, from the [place] facility where the Encounter took place. Date/Time Current Smoking Status Comment Facility Jun 13, 2020 10:00 AM VA-TOBACCO FORMER USER [facility] Tobacco Use History This section includes a history of the smoking, or tobacco- related health factors, that were collected on or before the date of the Encounter. The data comes from the [place] facility where the Encounter took place. Date/Time Smoking Status/Tobacco Use Comment Facil it Jun 13, 2020 10:00 AM VA-TOBACCO QUIT 15 YRS OR MORE [facility] May 20, 2019 12:18 PM VA-TOBACCO FORMER USER MIN [facility] May 20, 2019 12:18 PM VA-TOBACCO QUIT 15 YRS OR MORE [facility] Jul 30, 2018 08:31 AM VA-TOBACCO FORMER USER [facility] Jul 30, 2018 08:31 AM VA-TOBACCO QUIT 15 YRS OR MORE [facility] Aug 25, 2017 08:04 AM FORMER TOBACCO USER 7Y OR GREATER [facility] Nov 08, 2016 08:12 AM FORMER TOBACCO USER 7Y OR GREATER [facility] Nov 29, 2015 12:46 PM FORMER TOBACCO USER 7Y OR GREATER [facility] February 23, 2015 12:57 PM FORMER TOBACCO USER 7Y OR GREATER [facility] January 27, 2014 10:10 AM FORMER TOBACCO USER 7Y OR GREATER [facility] Mar 17, 2007 09:11 AM FORMER TOBACCO USER 7Y OR GREATER [facility] Advance Directives: All historical and current Section Date Range: From patient's date of to the date document was created. This section includes ALL of a patient's completed or amended [place] Advance and Rescinded Directives. The entries below indicate that a directive exists for the patient, but an actual copy is not included with this document. The data comes from all [facility]. Date Advance Directives Provider Source Mar 17, 2007 ADVANCE DIRECTIVE ALBERTO RODRIGUEZ [facility] Encounter Notes: All associated encounter notes This section contains the clinical notes associated to the Encounter. Date/Time Encounter Note(s) Provider Source Dec 21, 2021 11:35 AM DENTISTRY CONSULT: FRANCISCA LANGLEY [facility] LOCAL TITLE: DENTAL IMAGING CONSULT STANDARD TITLE: DENTISTRY CONSULT DATE OF NOTE: DEC 21, 2021@11:35 ENTRY DATE: DEC 21, 2021@11:35:41 AUTHOR: FRANCISCA LANGLEY EXP COSIGNER: URGENCY: STATUS: COMPLETED Dental images were exposed, interpreted, and res ults were discussed with patient. /jeffry/ FRANCISCA LANGLEY DENTAL RESIDENT Signed: 12/21/2021 11:35 Dec 21, 2021 11:23 AM DENTISTRY NOTE: FRANCISCA LANGLEY [facility] LOCAL TITLE: Dental Clinic Note STANDARD TITLE: DENTISTRY NOTE DATE OF NOTE: DEC 21, 2021@11:23 ENTRY DATE: DEC 21, 2021@11:23:28 AUTHOR: FRANCISCA LANGLEY EXP COSIGNER: URGENCY: STATUS: COMPLETED Dental Clinic Note Has ADDENDA Patient Name: BETH DURAN, : 1945, A ge: 76 Visit: S: Dec 21, 2021@10:30 [facility] D[facility] TRIAGE [facility] 2U. Primary PCE Diagnosis: K08.531 (Fractured denta l restorative material with loss of material). Dental Category: 15-OPC, Class IV. Treatment St atus: Active. Completed Care: (D0220) INTRAORAL PERIAPICAL FIRST. Tooth: 8. DX: K08.531 Fractured Dental Restorative Materi al with Loss of Material (D0140) LIMIT ORAL EVAL PROBLM FOCUS. DX: K08.531 Fractured Dental Restorative Materi al with Loss of Material Sterilization verification performed by Dr. langley and visitor information assistant. Presentation/Chief Complaint: Patient presents for limited oral evaluation I broke my upper front tooth. History of Present Illness (HPI): Pt stated that #9 crown came off a month ago th en #8 broke off shortly after. Disposed of the crowns. 08/[address] Gonzales, pt decided not to continue wit h dental care and focus on cancer treatment. 11/30/21 planned visit to start restorative but tested COVID+. Vital Signs: Dental Pain (0-10): 0 General Pain (0-10): 0 Temperature (??F): 97.7 12/21/2021 10:36 Blood Pressure (mmHg): 142/69 12/21/2021 10:36 Pulse (BPM): 52 12/21/2021 10:36 Past Medical History and Medications: No significant changes since the last dental vi sit Intraoral and Extraoral Screening Exam Findings: 12/21/2021 Head and neck assessment with oral c ancer screening is negative: no apparent pathology noted. #8: missing crown, fracture of abutment, NS to p ercussion/palpation #9: missing crown, intact tooth structure, NS to percussion/palpation Radiographic findings: #8 po tentially complicated crown fracture exposing pulp, no apical pathology noted, no caries noted Assessment/Plan: Performed limited exam, exposed PA #8 questionable restorability, crown indicated, root canal+post+core may be indicated if pt become symptomatic/tooth struct ure insufficient for crown. #9 restorable, crown indicated CITC indicated since we are not able to covid t est pt until 03/02/22. Explained to pt findings and recommendations, p t understood, frustrated with trying to contact dental, ga ve pt number [phone] to connect directly with a dental assisstant if he does not hear about his CITC consult within a timely manner, pt satisfied with option. No urgent dental needs or acute dental infectio ns noted on examination. Planned Procedures: Unsequenced (D2335) RESIN 4/> SURF [...] END THXPY MOLAR TOOTH: 2(dlm). DX: (). Reviewed risks/benefits/alternatives associated with the proposed treatment plan. Patient agrees to treatment ana n as discussed. Next visit: CITC since pt will not be able to be COVID test ed until 03/01/22. Logistics Support: Sandra The patient's history, findings, assessment and plan were discussed with Dr. Gonzales, who agrees with the plan. /es/ FRANCISCA LANGLEY DENTAL RESIDENT Signed: 12/21/2021 11:33 Receipt Acknowledged By: * AWAITING SIGNATURE * CLAIRE GONZALES 12/21/2021 ADDENDUM STATUS: COMPLETED Please place CITC consult, vet tested CO VID+ 11/30/21 so we cannot see him until 03/02/22 for AGP. Pt will need exam, [facility] can request films from us. Thank you /jeffry/ FRANCISCA LANGLEY DENTAL RESIDENT Signed: 12/21/2021 11:35 Receipt Acknowledged By: * AWAITING SIGNATURE * ANIBAL BAZAN
--- OUTSIDE RECORDS SUMMARY | 2022-05-21 11:09 | XMS_ITS | Encounter Summary ---
:1945 Author Organization [facility] rs Address [address] [place] [address] Support Name Relationship Address Phone AIMEE DURAN Unavailable [address] [place] [address] AIMEE DURAN Unavailable Unavailable RENEECARLO HANSON Unavailable [address] [phone] [place] [address] Insurance Providers: All historical and current Section [...] U-CARE OF MEDICARE MCR Sep 29, [id number] [phone] MILES HANSON SI PATIENT [facility] ADVANTAGE (WNR) 2019 003 00 4 MON (WNR) U-CARE OF MEDICARE MCR Sep 29, [id number] [phone] JANES Nguyen SI PATIENT [facility] (M) (WNR) 2008 1100 4 MON (WNR) U-CARE OF MEDICARE MCR Sep 29, [id number] [phone] JANES Nguyen SI PATIENT [facility] ADVANTAGE (WNR) 2008 1100 4 MON (WNR) [facility] MCR MEDICARE MCR Sep 29, [id number] [phone] MILES HANSON SI PATIENT (WNR) ADVANTAGE (WNR) 2019 003 00 5 MON [facility] MEDICARE MCR Sep 29, [id number] [phone] Ihsan DURAN I PATIENT [facility] (WNR) 2010 [id number] MON [facility] (WNR) Selected Encounter This section includes the information on record at [place] for the Encounter. Date/Time Encounter Type Encounter Description Reason Provider Source Nov 26, 2021 01:15 Outpatient Encounter TELEPHONE/DENTAL PM IHE Encounter Template Text not used by [place] Plan of Treatment: Future Appointments (+ 6 months) and Future Tests (+/- 45 days) The Plan of Treatment section includes future care activities for the patient [facility] This section includes future appointments and future orders which are active, pending orscheduled.Future Appointments This section includes appointments that were scheduled to occur 6 months from the date of the Encounter, up to a maximum of 20 appointments. The data comes from all [place] treatment [facility]. Appointment Date/Time Appointment Type Appointment Facili ty Name Nov 30, 2021 08:30 AM AMBULATORY - NEUROLOGY [facility] Nov 30, 2021 10:30 AM AMBULATORY - SURGERY [facility] Dec 18, 2021 09:00 AM AMBULATORY - MEDICINE [facility] Dec 21, 2021 10:30 AM AMBULATORY - SURGERY [facility] Jan 21, 2022 05:20 PM AMBULATORY - REHAB MEDICINE [facility] February 06, 2022 09:45 AM AMBULATORY - MEDICINE [facility] February 07, 2022 09:00 AM AMBULATORY - NONE [facility] February 07, 2022 10:00 AM AMBULATORY - NONE [facility] Feb 27, 2022 01:15 PM AMBULATORY - NONE [facility] Mar 04, 2022 01:30 PM AMBULATORY - NONE [facility] Mar 11, 2022 09:00 AM AMBULATORY - REHAB MEDICINE [facility] Apr 22, 2022 03:30 PM AMBULATORY - NONE [facility] May 06, 2022 10:30 AM AMBULATORY - REHAB MEDICINE [facility] Active, Pending, and Scheduled Orders This section includes a listing of several types of active, pending, and scheduled orders, including clinic medications orders, diagnostic test orders, procedure orders and consult orders; where the start date of the order is 45 days before the date of the Encounter or 45 days after the date of the Encounter. The data comes from all [place] treatment [facility]. Test Date/Time Test Type Test Details Facility Name Dec 24, 2021 08:07 AM Consult Order COMMUNITY CARE-DENTAL [facility] GEN SERV Cons Hide Grader's Choice Jan 09, 2022 12:00 AM Laboratory - Chemistry HEMOGLOBIN A1C BLOO D [facility] Order SP ONCE Jan 09, 2022 12:00 AM Laboratory - Chemistry BASIC METABOLIC MIN CARLOS A [facility] Order PANEL+MG PLASMA SP ONCE Jan 09, 2022 12:00 AM Laboratory - Chemistry MICROALBUMIN/CREATI CARLINE [facility] Order E RATIO URINE URINE WC ONCE Lab Results: +/- 30 days of the encounter This section includes the Chemistry and Hematology Lab Results on record with [place] for the patient. Radiology Reports and Pathology Reports are provided separately, in subsequent sections.Lab Results This section contains the Chemistry/Hematology Results that were resulted 30 days before or 30 daysafter the date of the Encounter. Date/Time Source Result Type Result - Unit Interpretation Reference Range Comment Nov 30, 2021 [facility] COVID-19 AND FLU/RSV DIAG Sp ecimen Type: NASOPHARYNGEAL 07:55 AM PANEL(CEPHEID) Comment: Lencho hernandez GeneXpert (618) Ordering Provid er: SAHARA CEVALLOS Report Released Date/Time: Nov 28, 2021 09:05 AM Reporting Lab: [facility] [id number] Performing Lab: [facility] [id number] COVID-19 (CEPHEID) DETECTED HH Not Detecte d INFLUENZA A (PCR) Not Detected Not Detec geovanny INFLUENZA B (PCR) Not Detected Not Detec geovanny RSV (PCR) Not Detected Not Detected Social History: Smoking Status (Most current) and Tobacco Use (All prior to encounter date) This section includes the most current, and the historical, smoking and tobacco-related health factors from the [place] facility where the Encounter took place.Current Smoking Status This section includes the most current smoking, or tobacco-related health factor, from the [place] facility where the Encounter took place. Date/Time Current Smoking Status Comment Facility Jun 13, 2020 10:00 AM VA-TOBACCO FORMER USER [facility] Tobacco Use History This section includes a history of the smoking, or tobacco- related health factors, that were collected on or before the date of the Encounter. The data comes from the [place] facility where the Encounter took place. Date/Time Smoking Status/Tobacco Use Comment Faith mccoy Jun 13, 2020 10:00 AM [place]-TOBACCO QUIT 15 YRS OR MORE [facility] May 20, 2019 12:18 PM VA-TOBACCO FORMER USER [facility] May 20, 2019 12:18 PM VA-TOBACCO QUIT 15 YRS OR MORE [facility] Jul 30, 2018 08:31 AM VA-TOBACCO FORMER USER [facility] Jul 30, 2018 08:31 AM VA-TOBACCO QUIT 15 YRS OR MORE [facility] Aug 25, 2017 08:04 AM FORMER TOBACCO USER 7Y OR GREATER [facility] Nov 08, 2016 08:12 AM FORMER TOBACCO USER 7Y OR GREATER [facility] Nov 29, 2015 12:46 PM FORMER TOBACCO USER 7Y OR GREATER [facility] February 23, 2015 12:57 PM FORMER TOBACCO USER 7Y OR GREATER [facility] January 27, 2014 10:10 AM FORMER TOBACCO USER 7Y OR GREATER [facility] Mar 17, 2007 09:11 AM FORMER TOBACCO USER 7Y OR GREATER [facility] Advance Directives: All historical and current Section Date Range: From patient's date of to the date document was created. This section includes ALL of a patient's completed or amended [place] Advance and Rescinded Directives. The entries below indicate that a directive exists for the patient, but an actual copy is not included with this document. The data comes from all [facility]. Date Advance Directives Provider Source Mar 17, 2007 ADVANCE DIRECTIVE ROWENAMANFREDALBERTO [facility] Encounter Notes: All associated encounter notes This section contains the clinical notes associated to the Encounter. Date/Time Encounter Note(s) Provider Source Nov 26, 2021 01:15 PM REPORT OF CONTACT: EDU ZAVALA [facility] LOCAL TITLE: PATIENT CONTACT NOTE STANDARD TITLE: REPORT OF CONTACT DATE OF NOTE: NOV 26, 2021@13:15 ENTRY DATE: NOV 26, 2021@13:15:14 AUTHOR: EDU ZAVALA EXP COSIGNER: URGENCY: STATUS: COMPLETED Patient contact Name of : RENEEBETH Name/Relationship of Contact if other than Veter an: Date & Time of Contact: Oct@13:16 Type of Contact: In person Reason for Contact: [place] presents to the hotel front desk clerk, inquiring ab out an appointment. states that since his last appointment the upper front two easton have fallen off. He no longer has those caps and would like them repaired. Please review and alert this senior writer. Thank you. /jeffry/ EDU F SALLY MSA GREENHOUSE TECHNICIAN Signed: 11/26/2021 13:19 Receipt Acknowledged By: * AWAITING SIGNATURE * CLAIRE BRANHAM T
--- OUTSIDE RECORDS SUMMARY | 2022-05-21 11:09 | XMS_ITS | Encounter Summary ---
:1945 Author Organization [facility] rs Address [address] [place] [address] Support Name Relationship Address Phone AIMEE DURAN Unavailable [address] [place] [address] AIMEE DURAN Unavailable Unavailable RENEECARLO HANSON Unavailable [address] [phone] [place] [address] Insurance Providers: All historical and current Section [...] U-CARE OF MEDICARE MCR Sep 29, [id number] [phone] MILES HANSON SI PATIENT [facility] ADVANTAGE (WNR) 2019 003 [id number] 4 MON (WNR) U-CARE OF MEDICARE MCR Sep 29, [id number] [phone] JANES Nguyen SI PATIENT [facility] (M) (WNR) 2008 1100 4 MON (WNR) U-CARE OF MEDICARE MCR Sep 29, [id number] [phone] JANES Nguyen SI PATIENT [facility] ADVANTAGE (WNR) 2008 [id number] 4 MON (WNR) [employer] MCR MEDICARE MCR Sep 29, [id number] [phone] MILES HANSON SI PATIENT (WNR) ADVANTAGE (WNR) 2019 003 00 5 MON [employer] MEDICARE MCR Sep 29, [id number] [phone] RENEE,S I PATIENT [facility] (WNR) 2010 [id number] [facility] (WNR) Selected Encounter This section includes the information on record at [place] for the Encounter. Date/Time Encounter Type Encounter Reason Provider Source Description Nov 30, 2021 ADJUNCTIVE DENTAL ICD-10-CM K02.52 Tae BRANHAM 10:30 AM PROCEDURE Dental caries on OSHUA T pit and fissure surfc penetrat into dentin with Provider Comments: Dental caries on pit and fissure surface penetrating into dentin IHE Encounter Template Text not used by [facility] Assessments - Encounter Diagnoses This section includes the primary and secondary diagnoses documented for the Encounter. Date/Time Primary/Secondary Diagnosis Name Provider Source Diagnosis Nov 30, 2021 PRIMARY Dental caries MIESHA BRANHAM [employer] 09:56 AM on pit and SHUA T HCS fissure surfc penetrat into dentin Plan of Treatment: Future Appointments (+ 6 months) and Future Tests (+/- 45 days) The Plan of Treatment section includes future care activities for the patient from all [place] treatmentfacilities. This section includes future appointments and future orders which are active, pending orscheduled.Future Appointments This section includes appointments that were scheduled to occur 6 months from the date of the Encounter, up to a maximum of 20 appointments. The data comes from all [place] treatment facilities. Appointment Date/Time Appointment Type Appointment Facili ty Name Dec 18, 2021 09:00 AM AMBULATORY - MEDICINE [facility] Dec 21, 2021 10:30 AM AMBULATORY - SURGERY [facility] S Jan 21, 2022 05:20 PM AMBULATORY - REHAB MEDICINE [facility] February 06, 2022 09:45 AM AMBULATORY - MEDICINE [facility] February 07, 2022 09:00 AM AMBULATORY - NONE [facility] February 07, 2022 10:00 AM AMBULATORY - NONE [facility] Feb 27, 2022 01:15 PM AMBULATORY - NONE [facility] Mar 04, 2022 01:30 PM AMBULATORY - NONE [facility] Mar 11, 2022 09:00 AM AMBULATORY - REHAB MEDICINE [facility] Apr 22, 2022 03:30 PM AMBULATORY - NONE [facility] May 06, 2022 10:30 AM AMBULATORY - REHAB MEDICINE [facility] Active, Pending, and Scheduled Orders This section includes a listing of several types of active, pending, and scheduled orders, including clinic medications orders, diagnostic test orders, procedure orders and consult orders; where the start date of the order is 45 days before the date of the Encounter or 45 days after the date of the Encounter. The data comes from all [place] treatment facilities. Test Date/Time Test Type Test Details Facility Name Dec 24, 2021 08:07 AM Consult Order COMMUNITY CARE-DENTAL [facility] Cons Panel Builder's Choice Jan 09, 2022 12:00 AM Laboratory - Chemistry HEMOGLOBIN A1C BLOO D [facility] Order SP ONCE Jan 09, 2022 12:00 AM Laboratory - Chemistry MICROALBUMIN/CREATI CARLINE [facility] Order E RATIO URINE URINE WC ONCE Jan 09, 2022 12:00 AM Laboratory - Chemistry BASIC METABOLIC MIN [facility] Order PANEL+MG PLASMA SP ONCE Lab Results: +/- 30 days of the encounter This section includes the Chemistry and Hematology Lab Results on record with [place] for the patient. Radiology Reports and Pathology [...] Nov 28, 2021 09:05 AM Reporting Lab: [facility] [id number] Performing Lab: [facility] [id number] COVID-19 (CEPHEID) DETECTED HH Not Detecte d INFLUENZA A (PCR) Not Detected Not Detec geovanny INFLUENZA B (PCR) Not Detected Not Detec geovanny RSV (PCR) Not Detected Not Detected Social History: Smoking Status (Most current) and Tobacco Use (All prior to encounter date) This section includes the most current, and the historical, smoking and tobacco-related health factors from the [facility] where the Encounter took place.Current Smoking Status This section includes the most current smoking, or tobacco-related health factor, from the [place] facility where the Encounter took place. Date/Time Current Smoking Status Comment Facility Jun 13, 2020 10:00 AM VA-TOBACCO FORMER USER MIN [facility] Tobacco Use History This section includes a history of the smoking, or tobacco- related health factors, that were collected on or before the date of the Encounter. The data comes from the [place] facility where the Encounter took place. Date/Time Smoking Status/Tobacco Use Comment Facil ity Jun 13, 2020 10:00 AM VA-TOBACCO QUIT 15 YRS OR MORE [facility] May 20, 2019 12:18 PM VA-TOBACCO FORMER USER MIN [facility] May 20, 2019 12:18 PM VA-TOBACCO QUIT 15 YRS OR MORE [facility] Jul 30, 2018 08:31 AM VA-TOBACCO FORMER USER MIN [facility] Jul 30, 2018 08:31 AM VA-TOBACCO [...] ALL of a patient's completed or amended [place] Advance and Rescinded Directives. The entries below indicate that a directive exists for the patient, but an actual copy is not included with this document. The data comes from all [facility]. Date Advance Directives Provider Source Mar 17, 2007 ADVANCE DIRECTIVE ALBERTO RODRIGUEZ [facility] Encounter Notes: All associated encounter notes This section contains the clinical notes associated to the Encounter. Date/Time Encounter Note(s) Provider Source Dec 18, 2021 08:45 AM DENTISTRY CONSULT: CLAIRE BRANHAM [place] [facility] LOCAL TITLE: DENTAL IMAGING CONSULT STANDARD TITLE: DENTISTRY CONSULT DATE OF NOTE: DEC 18, 2021@08:45 ENTRY DATE: DEC 18, 2021@08:45:13 AUTHOR: CLAIRE BRANHAM COSIGNER: URGENCY: STATUS: COMPLETED Dental images were exposed, interpreted, and res ults were discussed with patient. /jeffry/ CLAIRE BRANHAM DDS STAFF DENTIST Signed: 12/18/2021 08:45 Nov 30, 2021 09:54 AM DENTISTRY NOTE: CLAIRE BRANHAM [facility] LOCAL TITLE: Dental Clinic Note STANDARD TITLE: DENTISTRY NOTE DATE OF NOTE: NOV 30, 2021@09:54 ENTRY DATE: NOV 30, 2021@09:56:10 AUTHOR: CLAIRE BRANHAM COSIGNER: URGENCY: STATUS: COMPLETED Patient Name: BETH DURAN, : 1945, A ge: 76 Visit: S: Nov 30, 2021@10:30 [facility] 2U. Primary PCE Diagnosis: K02.52 (DENTAL CARIES ON PIT AND FISSURE SURFACE PENETRATING INTO DENTIN). Dental Category: 15-OPC, Class IV. Treatment St atus: Active. Completed Care: ([id number]) ADJUNCTIVE PROCEDURE. DX: K02.52 Dental Caries on Pit and Fissure [place] face Penetrating into Dentin - - - - - - - - - - - - - - - - - - - - - - - - - - - - - - Patient tested covid +. Called and informed vete ran of results and recommended immediately leaving the clinic and i solating at home following CDC guidelines. SOP followed. Appt will need to be rescheduled on a Friday triage 2-3wks from today to evaluate broken fron t teeth. Please call to schedule. /jeffry/ CLAIRE BRANHAM DDS STAFF DENTIST Signed: 11/30/2021 09:56 Receipt Acknowledged By: * AWAITING SIGNATURE * EDU ZAVALA
--- OUTSIDE RECORDS SUMMARY | 2022-05-21 11:09 | XMS_ITS | Encounter Summary ---
:1945 Author Organization [facility] rs Address [address] [place] [address] Support Name Relationship Address Phone AIMEE DURAN Unavailable [address] [place] [address] AIMEE DURAN Unavailable Unavailable RENEECARLO HANSON Unavailable [address] [phone] [place] [address] Insurance Providers: All historical and current Section Date Range: From patient's date of to the date document was created.This section includes the names of all active insurance providers for the patient. Insurance Type of Plan Start of End of Group Member Insurance Policy P atient's Provider Coverage Name Policy Policy Number ID Provider's Mar's Relationship Coverage Coverage Telephone Name to Policy Number Mra U-CARE OF MEDICARE MCR Sep 29, [id number] [phone] MILES HANSON SI PATIENT [facility] ADVANTAGE (WNR) [phone] 4 MON (WNR) U-CARE OF MEDICARE MCR Sep 29, [id number] [phone] JANES Nguyen SI PATIENT [facility] (M) (WNR) 2008 1100 4 MON (WNR) U-CARE OF MEDICARE MCR Sep 29, RIVAAB [id number] [phone] JANES Nguyen SI PATIENT [facility] ADVANTAGE (WNR) 2008 [id number] 4 MON (WNR) UCARE MCR MEDICARE MCR Sep 29, [id number] [phone] MILES HANSON SI PATIENT (WNR) ADVANTAGE (WNR) 2019 003 00 5 MON [employer] MEDICARE MCR Sep 29, [id number] [phone] RENEE,S I PATIENT [facility] (WNR) 2010 [id number] [facility] (WNR) Selected Encounter This section includes the information on record at [place] for the Encounter. Date/Time Encounter Type Encounter Description Reason Provider Source Dec 04, 2021 08:33 Outpatient Encounter DENTAL AM IHE Encounter Template Text not used by [place] Plan of Treatment: Future Appointments (+ 6 months) and Future Tests (+/- 45 days) The Plan of Treatment section includes future care activities for the patient [facility] [place] [facility] This section includes future appointments and future orders which are active, pending orscheduled.Future Appointments This section includes appointments that were scheduled to occur 6 months from the date of the Encounter, up to a maximum of 20 appointments. The data comes from all [place] treatment [facility]. Appointment Date/Time Appointment Type Appointment Facili ty Name Dec 18, 2021 09:00 AM AMBULATORY - MEDICINE [facility] Dec 21, 2021 10:30 AM AMBULATORY - SURGERY [facility] S Jan 21, 2022 05:20 PM AMBULATORY - REHAB MEDICINE [facility] February 06, 2022 09:45 AM AMBULATORY - MEDICINE [facility] February 07, 2022 09:00 AM AMBULATORY - NONE [facility] February 07, 2022 10:00 AM AMBULATORY - NONE [facility] Feb 27, 2022 01:15 PM AMBULATORY - NONE [facility] Mar 04, 2022 01:30 PM AMBULATORY - NONE [facility] Mar 11, 2022 09:00 AM AMBULATORY - REHAB MEDICINE [facility] Apr 22, 2022 03:30 PM AMBULATORY - NONE [facility] May 06, 2022 10:30 AM AMBULATORY - REHAB [facility] Active, Pending, and Scheduled Orders This section includes a listing of several types of active, pending, and scheduled orders, including clinic medications orders, diagnostic test orders, procedure orders and consult orders; where the start date of the order is 45 days before the date of the Encounter or 45 days after the date of the Encounter. The data comes from all [facility]. Test Date/Time Test Type Test Details Facility Name Dec 24, 2021 08:07 AM Consult Order [facility] Cons Base Manager's Choice Jan 09, 2022 12:00 AM Laboratory - Chemistry HEMOGLOBIN A1C BLOO D [facility] Order SP ONCE Jan 09, 2022 12:00 AM Laboratory - Chemistry BASIC METABOLIC [facility] Order PANEL+MG PLASMA SP ONCE Jan 09, 2022 12:00 AM Laboratory - Chemistry MICROALBUMIN/CREATI CARLINE [facility] Order E RATIO URINE URINE WC ONCE Lab Results: +/- 30 days of the encounter This section includes the Chemistry and Hematology Lab Results on record with [facility] for the patient. Radiology Reports and Pathology Reports are provided separately, in subsequent sections.Lab Results This section contains the Chemistry/Hematology Results that were resulted 30 days before or 30 daysafter the date of the Encounter. Date/Time Source Result Type Result - Unit Interpretation Reference Range Comment Nov 30, 2021 [facility] COVID-19 AND FLU/RSV DIAG Sp ecimen Type: NASOPHARYNGEAL 07:55 AM PANEL(CEPHEID) Comment: Lencho hernandez GeneXpert (618) Ordering Provid er: SAHARA CEVALLOS Report Released Date/Time: Nov 28, 2021 09:05 AM Reporting Lab: [facility] [id number] Performing Lab: [facility] [id number] COVID-19 (CEPHEID) DETECTED HH Not Detecte d INFLUENZA A (PCR) Not Detected Not Detec geovanny INFLUENZA B (PCR) Not Detected Not Detec geovanny RSV (PCR) Not Detected Not Detected Social History: Smoking Status (Most current) and Tobacco Use (All prior to encounter date) This section includes the most current, and the historical, smoking and tobacco-related health factors from the [facility] where the Encounter took place.Current Smoking Status This section includes the most current smoking, or tobacco-related health factor, from the [place] facility where the Encounter took place. Date/Time Current Smoking Status Comment Facility Jun 13, 2020 10:00 AM VA-TOBACCO FORMER USER MIN [facility] Tobacco Use History This section includes a history of the smoking, or tobacco- related health factors, that were collected on or before the date of the Encounter. The data comes from the [place] facility where the Encounter took place. Date/Time Smoking Status/Tobacco Use Comment [facility] Jun 13, 2020 10:00 AM VA-TOBACCO QUIT [address] [facility] May 20, 2019 12:18 PM VA-TOBACCO FORMER USER MIN [facility] May 20, 2019 12:18 PM VA-TOBACCO QUIT [address] [facility] Jul 30, 2018 08:31 AM VA-TOBACCO FORMER USER MIN [facility] Jul 30, 2018 08:31 AM [place]-TOBACCO QUIT [address] [facility] Aug 25, 2017 08:04 AM FORMER TOBACCO USER 7Y OR GRE[address] [facility] Nov 08, 2016 08:12 AM FORMER TOBACCO USER 7Y OR [facility] Nov 29, 2015 12:46 PM FORMER TOBACCO USER 7Y OR [facility] February 23, 2015 12:57 PM FORMER TOBACCO USER 7Y OR [facility] January 27, 2014 10:10 AM FORMER TOBACCO USER 7Y OR [facility] Mar 17, 2007 09:11 AM FORMER TOBACCO USER 7Y OR [facility] [facility] Advance Directives: All historical and current Section Date Range: From patient's date of to the date document was created. This section includes ALL of a patient's completed or amended [place] Advance and Rescinded Directives. The entries below indicate that a directive exists for the patient, but an actual copy is not included with this document. The data comes from all [place] facilities. Date Advance Directives Provider Source Mar 17, 2007 ADVANCE DIRECTIVE ALBERTO RODRIGUEZ [facility] Encounter Notes: All associated encounter notes This section contains the clinical notes associated to the Encounter. Date/Time Encounter Note(s) Provider Source Dec 04, 2021 08:33 AM REPORT OF CONTACT: EDU ZAVALA [facility] LOCAL TITLE: APPOINTMENT SCHEDULING NOTE STANDARD TITLE: REPORT OF CONTACT DATE OF NOTE: DEC 04, 2021@08:33 ENTRY DATE: DEC 04, 2021@08:33:56 AUTHOR: EDU ZAVALA EXP COSIGNER: URGENCY: STATUS: COMPLETED Attempt to schedule return to clinic 1st Contact: Called [place] at: Nov Left message Phone number left for to call back: If [place] calls back, schedule appointment for : Return to [facility] DENTAL TRIAGE [facility] 2U on or kulwinder und ( Dec 14, 2021 ) for a total of 1 appointment(s) 2-3wks from today covid+result - 30 min - eval b roken front teeth (friday) Is the RTC marked as no later than? Kristie /jeffry/ EDU ZAVALA [facility] MASTER CERTIFIED RV TECHNICIAN Signed: 12/04/2021 08:34
--- OUTSIDE RECORDS SUMMARY | 2022-05-21 11:09 | XMS_ITS | Encounter Summary ---
:1945 Author Organization [facility] rs Address [address] [place] [id number] Support Name Relationship Address Phone AIMEE DURAN Unavailable [address] [place] [address] AIMEE DURAN Unavailable Unavailable RENEECARLO HANSON Unavailable [address] [phone] [place] [address] Insurance Providers: All historical and current Section [...] U-CARE OF MEDICARE MCR Sep 29, [id number] [phone] MILES HANSON SI PATIENT [facility] ADVANTAGE (WNR) 2019 003 00 4 MON (WNR) U-CARE OF MEDICARE MCR Sep 29, [id number] [phone] JANES Nguyen SI PATIENT [facility] (M) (WNR) 2008 1100 4 MON (WNR) U-CARE OF MEDICARE MCR Sep 29, [id number] [phone] JANES Nguyen SI PATIENT [facility] ADVANTAGE (WNR) 2008 1100 4 MON (WNR) [facility] MCR MEDICARE MCR Sep 29, [id number]_ [id number] [phone] MILES HANSON SI PATIENT (WNR) ADVANTAGE (WNR) 2019 003 00 5 MON [facility] MEDICARE MCR Sep 29, [id number] [phone] Ihsan DURAN I PATIENT [facility] (WNR) 2010 [id number] [facility] (WNR) Selected Encounter This section includes the information on record at [place] for the Encounter. Date/Time Encounter Type Encounter Reason Provider Source Description Dec 18, 2021 HC PRO PHONE TELEPHONE/MEDICIN ICD-10-CM E11.8 KRISTEN MONTELONGO 09:00 AM CALL 11-20 MIN E Type 2 diabetes mellitus with unspecified complications with Provider Comments: Type 2 diabetes mellitus ([facility] [id number]) IHE Encounter Template Text not used by [facility] Assessments - Encounter Diagnoses This section includes the primary and secondary diagnoses documented for the Encounter. Date/Time Primary/Secondary Diagnosis Name Provider Source Diagnosis Dec 18, 2021 PRIMARY Type 2 diabetes NOMI MONTELONGO [facility] 09:00 AM mellitus with HCS unspecified complications Plan [...] data comes from all [place] treatment facilities. Appointment Date/Time Appointment Type Appointment Facili ty Name Dec 21, 2021 10:30 AM AMBULATORY - SURGERY [facility] S Jan 21, 2022 05:20 PM AMBULATORY - REHAB MEDICINE [facility] February 06, 2022 09:45 AM AMBULATORY - MEDICINE [facility] February 07, 2022 09:00 AM AMBULATORY - NONE [facility] February 07, 2022 10:00 AM AMBULATORY - NONE [facility] Feb 27, 2022 01:15 PM AMBULATORY - NONE [facility] Mar 04, 2022 01:30 PM AMBULATORY - NONE [facility] Mar 11, 2022 09:00 AM AMBULATORY - REHAB MEDICINE [facility] Apr 22, 2022 03:30 PM AMBULATORY - NONE [facility] May 06, 2022 10:30 AM AMBULATORY - REHAB MEDIC[facility] Active, Pending, and Scheduled Orders This section [...] AM Consult Order COMMUNITY CARE-DENTAL [facility] GEN SERV Cons Tax Advisor's Choice Jan 09, 2022 12:00 AM Laboratory - Chemistry BASIC METABOLIC [facility] Order PANEL+MG PLASMA SP ONCE Jan 09, 2022 12:00 AM Laboratory - Chemistry HEMOGLOBIN A1C BLOO D [facility] Order SP ONCE Jan 09, 2022 12:00 AM Laboratory - Chemistry MICROALBUMIN/CREATI CARLINE [facility] Order E RATIO URINE URINE WC ONCE [...] Interpretation Reference Range Comment Nov 30, 2021 [facility] COVID-19 AND FLU/RSV DIAG Sp ecimen Type: NASOPHARYNGEAL 07:55 AM PANEL(CEPHEID) Comment: Cephei d GeneXpert (618) Ordering Provid er: SAHARA CEVALLOS Report Released Date/Time: Nov 28, 2021 09:05 AM Reporting Lab: [facility] [id number] Performing Lab: [facility] [id number] COVID-19 (CEPHEID) DETECTED HH Not Detecte d INFLUENZA A (PCR) Not Detected Not Detec geovanny INFLUENZA B (PCR) Not Detected Not Detec geovanny RSV (PCR) Not Detected Not Detected Social History: Smoking Status (Most current) and Tobacco Use (All prior to encounter date) This section includes the most current, and the historical, smoking and tobacco-related health factors from the [place] facility where the Encounter took place.Current Smoking Status This section includes the most current smoking, or tobacco-related health factor, from the [facility] where the Encounter took place. Date/Time [...] this document. The data comes from all [place] facilities. Date Advance Directives Provider Source Mar 17, 2007 ADVANCE DIRECTIVE TORRESRIANAALBERTO SHEARER Anjana [facility] Encounter Notes: All associated encounter notes This section contains the clinical notes associated to the Encounter. Date/Time Encounter Note(s) Provider Source Dec 18, 2021 09:53 AM REPORT OF CONTACT: NOMI MONTELONGO [facility] LOCAL TITLE: PATIENT CONTACT NOTE STANDARD TITLE: REPORT OF CONTACT DATE OF NOTE: DEC 18, 2021@09:53 ENTRY DATE: DEC 18, 2021@09:54:05 AUTHOR: NOMI MONTELONGO EXP COSIGNER: URGENCY: STATUS: COMPLETED PATIENT CONTACT NOTE Has ADDENDA DIABETES: Type of visit: RN phone appt to f/u on semagluti de Patient History: T2DM Allergies: PENICILLIN (Mar 17, 2007) SULFA DRUGS (Mar 17, 2007) DOXYCYCLINE (Jul 11, 2010) LISINOPRIL (Jul 22, 2011) AMLODIPINE (Nov 19, 2017) ACTIVE DIABETIC MEDICATIONS: Aspart *varies based on meal Glargine 34 units qpm Other: *reports on a good day he will take 35-4 0 units, if he eats higher carb meals 60-70 units. For instance today he to ok 20 units of aspart with breakfast of Chadian toast, then 1-2 hrs after br eakfast he took another 20 units. Cautioned him about stacking his insulin and taking insulin without checking his blood sugar. semaglutide 0.25mg x3, will increase to 0.5mg on 12/31/21 empagliflozin 25mg qday SELF BLOOD GLUCOSE MONITORING: Date 00:00- 05:30- 08:00- 11:00- :30- 17:00- 18:30- :30- 05:29 07:59 10:59 12:29 16:59 18:29 21:29 23:59 Nov [id number] Nov 182 [id number] Nov 137 [phone] Nov [phone] Nov 214 [phone] Nov [phone] Nov [phone] Nov 155 Comment: Blood sugars are va riable. He does vary his aspart dose based on blood sugars and meals. He will be increasing semaglut nereyda on 12/31/21. TYPICAL DIET: Breakfast: today 2 pieces of Chadian toast Lunch: yesterday 1 hotdog and 2 cookies Dinner: last evening cabbage and Spam Snack: popcorn, sugar free cookies, or ice cr eam REPORTED ACTIVITY & EXERCISE: He reports being more active when the weather is warm. He has been doing yard work. PLAN: Collaborated with participant(s) who is/are in agreement with the following plan: MEDICATION CHANGES: Cautioned to not stack his insulin, he t akes varying doses at varying times at times without check ing blood sugars. He denies having hypoglycemia. He will increase semaglutide to 0.5mg after 4 doses at 0.25mg. DIETARY ADJUSTMENTS: He is working with Zoya Duron RD. FOLLOW UP: Dr. Palacio clinic appt 01/24/[address], CDE 01/24/22 /jeffry/ NOMI MONTELONGO RN Metabolic Bank Compliance Officer Signed: 12/18/2021 10:11 Receipt Acknowledged By: 12/18/2021 21:10 /jeffry/ LONA PALACIO MD PHYSICIAN 12/18/2021 ADDENDUM STATUS: COMPLETED metabolic attending--the sug ars are highly variable. Will alert metabolic nruse coordinator to please check back with pt on what he is current doing with his insulin dosing and we need t o have this dosing based on an algorithm so that we can safely adjust with sugar review when he incr eses his semaglutide-- 1. current basal? 2. current strategy he is us ing for base with meals, and any premeal correction at this time? 3. is he aiming to give the short acting insuln before/with meals? 4. are these sugars just obtained premeal sugars ? --please provide this curren t insulin dosing information/sugar info and ask him not to increase the semaglutide until we have a plan for insulin adjustment. thanks. /jeffry/ LONA PALACIO MD PHYSICIAN Signed: 12/18/2021 21:14 Receipt Acknowledged By: 12/19/2021 14:58 /jeffry/ NOMI MONTELONGO RN Metabolic Bank Compliance Officer 12/19/2021 ADDENDUM STATUS: COMPLETED Called and spoke with . 1. 34 units qday 2. No current strategy on how he takes aspart he takes based on intuition Asked him over the next hattie h to stay at a consistent dose. Explained it is hard to help with adjustments and see trends when dos ing is inconsistent. 3. Tries to give before meal but will ta ke extra after the meal if he feels he is too high. 4. Testing not always done before meal a nd often is not sure if the reading is before or after. Asked him t o keep a log to help keep track of what he is taking and when. /zhanna MONTELONGO RN Metabolic Bank Compliance Officer Signed: 12/19/2021 15:23 Receipt Acknowledged By: * AWAITING SIGNATURE * LONA PALACIO
--- OUTSIDE RECORDS SUMMARY | 2022-05-21 11:09 | XMS_ITS | Encounter Summary ---
:1945 Author Organization [facility] rs Address [address] [place] [address] Support Name Relationship Address Phone AIMEE DURAN Unavailable [address] [place] [address] AIMEE DURAN Unavailable Unavailable RENEECARLO HANSON Unavailable [address] [phone] [place] [address] Insurance Providers: All historical and current Section [...] U-CARE OF MEDICARE MCR Sep 29, [id number]_ [id number] [phone] MILES HANSON SI PATIENT [facility] ADVANTAGE (WNR) 2019 003 00 4 MON (WNR) U-CARE OF MEDICARE MCR Sep 29, [id number] [phone] JANES Nguyen SI PATIENT [facility] (M) (WNR) 2008 1100 4 MON (WNR) U-CARE OF MEDICARE MCR Sep 29, [id number] [phone] JANES Nguyen SI PATIENT [facility] ADVANTAGE (WNR) 2008 1100 4 MON (WNR) [facility] MCR MEDICARE MCR Sep 29, [id number]_ [id number] [phone] MILES HANSON SI PATIENT (WNR) ADVANTAGE (WNR) 2019 003 00 5 MON [facility] MEDICARE MCR Sep 29, [id number] [phone] RENEE,S I PATIENT [facility] (WNR) 2010 [id number] MON [facility] (WNR) Selected Encounter This section includes the information on record at [place] for the Encounter. Date/Time Encounter Type Encounter Description Reason Provider Source Dec 27, 2021 11:37 Outpatient Encounter TELEPHONE/ANCILLARY AM IHE Encounter Template Text not used by [place] Plan of Treatment: Future Appointments (+ 6 months) and Future Tests (+/- 45 days) The Plan of Treatment section includes future care activities for the patient from all [place] [facility]. This section includes future appointments and future orders which are active, pending orscheduled.Future Appointments This section includes appointments that were scheduled to occur 6 months from the date of the Encounter, up to a maximum of 20 appointments. The data comes from all [place] treatment [facility]. Appointment Date/Time Appointment Type Appointment Facili ty Name Jan 21, 2022 05:20 PM AMBULATORY - REHAB MEDICINE [facility] February 06, 2022 09:45 AM AMBULATORY - MEDICINE [facility] February 07, 2022 09:00 AM AMBULATORY - [facility] February 07, 2022 10:00 AM AMBULATORY - [facility] Feb 27, 2022 01:15 PM AMBULATORY - [facility] Mar 04, 2022 01:30 PM AMBULATORY - [facility] Mar 11, 2022 09:00 AM AMBULATORY - REHAB MEDICINE [facility] Apr 22, 2022 03:30 PM AMBULATORY [facility] May 06, 2022 10:30 AM AMBULATORY - REHAB [facility] Active, Pending, and Scheduled Orders This section includes a listing of several types of active, pending, and scheduled orders, including clinic medications orders, diagnostic test orders, procedure orders and consult orders; where the start date of the order is 45 days before the date of the Encounter or 45 days after the date of the Encounter. The data comes from all [facility]. Test Date/Time Test Type Test Details Facility Name Dec 24, 2021 08:07 AM Consult Order [facility] GEN SERV Cons Health Club Manager's Choice Jan 09, 2022 12:00 AM Laboratory - Chemistry BASIC METABOLIC [facility] Order PANEL+MG PLASMA SP ONCE Jan 09, 2022 12:00 AM Laboratory - Chemistry HEMOGLOBIN A1C BLOO D [facility] Order SP ONCE Jan 09, 2022 12:00 AM Laboratory - Chemistry MICROALBUMIN/CREATI CARLINE [facility] Order E RATIO URINE URINE WC ONCE Lab Results: +/- 30 days of the encounter This section includes the Chemistry and Hematology Lab Results on record with [place] for the patient. Radiology Reports and Pathology [...] Nov 28, 2021 09:05 AM Reporting Lab: [facility] [id number] Performing Lab: [facility] [id number] COVID-19 (CEPHEID) DETECTED HH Not Detecte d INFLUENZA A (PCR) Not Detected Not Detec geovanny INFLUENZA B (PCR) Not Detected Not Detec geovanny RSV (PCR) Not Detected Not Detected Social History: Smoking Status (Most current) and Tobacco Use (All prior to encounter date) This section includes the most current, and the historical, smoking and tobacco-related health factors from the [place] facility where the Encounter took place.Current Smoking Status This section includes the most current smoking, or tobacco-related health factor, from the [facility] where the Encounter took place. Date/Time Current Smoking Status Comment Facility Jun 13, 2020 10:00 AM VA-TOBACCO FORMER USER [facility] Tobacco Use History This section includes a history of the smoking, or tobacco- related health factors, that were collected on or before the date of the Encounter. The data comes from the [place] facility where the Encounter took place. Date/Time Smoking Status/Tobacco Use Comment [facility] Jun 13, 2020 10:00 AM VA-TOBACCO QUIT 15 YRS OR MORE [facility] May 20, 2019 12:18 PM VA-TOBACCO FORMER USER [facility] May 20, 2019 12:18 PM VA-TOBACCO QUIT 15 YRS OR MORE [facility] Jul 30, 2018 08:31 AM VA-TOBACCO FORMER USER [facility] Jul 30, 2018 08:31 AM [place]-TOBACCO QUIT 15 YRS OR MORE [facility] [...] ALL of a patient's completed or amended [place] Advance and Rescinded Directives. The entries below indicate that a directive exists for the patient, but an actual copy is not included with this document. The data comes from all [place] facilities. Date Advance Directives Provider Source Mar 17, 2007 ADVANCE DIRECTIVE ALBERTO RODRIGUEZ [facility] Encounter Notes: All associated encounter notes This section contains the clinical notes associated to the Encounter. Date/Time Encounter Note(s) Provider Source Dec 27, 2021 11:37 AM COMMUNITY SENIOR LIVING CARE NOTE: RJ REBOLLAR [facility] LOCAL TITLE: [facility] ELIGIBILITY STANDARD TITLE: COMMUNITY SENIOR LIVING CARE NOTE DATE OF NOTE: DEC 27, 2021@11:37 ENTRY DATE: DEC 27, 2021@11:37:19 AUTHOR: CHAPIS REBOLLAR EXP COSIGNER: URGENCY: STATUS: COMPLETED [facility] ELIGIBILITY Has ADDENDA COMMUNITY SENIOR LIVING ELIGIBILITY: This contact note is used to document a Veter an's administrative eligibility for a VA authorization at a [facility] retirement. Referral Source/Location: [facility] ([facility]) Home: Contract Correction: Yes Contact: Arlyn Fisher Phone Number: Reviewed the following eligibility [facility] or [facility] Authorizatio n: Yes If yes:70% service connected or higher If administratively eligible, meets [facility] care guidelines for skilled rehab and able/willing to participate: Y es Emma has a clinical need for retirement car e: Yes Hospice authorization: Yes would be eligible if enrolled in hospic e service - hospice not involved at this time. Referral source contact encouraged to do the fol madelyning: Contact literary writer for further questions as needed. /es/ LORETTA BAZAN STANDARD MACHINE STITCHER AIR CONDITIONER INSTALLER HELPER Signed: 12/27/2021 11:38 12/27/2021 ADDENDUM STATUS: COMPLETED Whipper Beater covering for TaeMauro Perezi ping during absence and received voicemail from Anjelica at [facility] and requests return call at [phone] Ext [phone]. Anjelica inquiring about eligibli ty. She states that [facility] might look to admit . Whipper Beater confirms the above. She thanked literary writer olga hernandez has no further questions at this time. /es/ RAMU FOREMAN, PATRICE [employer] STANDARD MACHINE STITCHER, [facility] Signed: 12/27/2021 13:58 12/28/2021 ADDENDUM STATUS: COMPLETED Whipper Beater covering for Mari Yousif during absence. Anjelica from [facility] called and left messa ge informing that has been accepted to [facility] if VA covers [facility]. She requests return call at [phone] [phone]. Whipper Beater returned call. No ans wer, left message informing that Anjelica should contact VA Beneficiary Travel Dept at [phone] to in [facility] if transport would be covered. /jeffry/ RAMU FOREMAN, ROTO MIXER OPERATOR [employer] STANDARD MACHINE STITCHER, [facility] Signed: 12/28/2021 09:39
--- OUTSIDE RECORDS SUMMARY | 2022-05-21 11:10 | XMS_ITS | Encounter Summary ---
:1945 Author Organization [facility] rs Address [address] [place] [address] Support Name Relationship Address Phone AIMEE DURAN Unavailable [address] [place] [address] AIMEE DURAN Unavailable Unavailable RENEECARLO HANSON Unavailable [address] [phone] [place] [address] Insurance Providers: All historical and current Section [...] U-CARE OF MEDICARE MCR Sep 29, [id number] [phone] MILES HANSON SI PATIENT [facility] ADVANTAGE (WNR) 2019 003 00 4 MON (WNR) U-CARE OF MEDICARE MCR Sep 29, [id number] [phone] JANES Nguyen SI PATIENT [facility] (M) (WNR) 2008 1100 4 MON (WNR) U-CARE OF MEDICARE MCR Sep 29, RIVAAB [id number] [phone] JANES Nguyen SI PATIENT [facility] ADVANTAGE (WNR) 2008 1100 4 MON (WNR) [facility]ARE MCR MEDICARE MCR Sep 29, [id number] [phone] MILES HANSON SI PATIENT (WNR) ADVANTAGE (WNR) 2019 003 00 5 MON [facility] MEDICARE MCR Sep 29, [id number] [phone] RENEE,S I PATIENT [facility] (WNR) 2010 [id number] MON [facility] (WNR) Selected Encounter This section includes the information on record at [place] for the Encounter. Date/Time Encounter Type Encounter Description Reason Provider Source Jan 17, 2022 08:37 Outpatient Encounter ENDOCRINOLOGY AM IHE Encounter Template Text not used by [place] Plan of Treatment: Future Appointments (+ 6 months) and Future Tests (+/- 45 days) The Plan of Treatment section includes future care activities for the patient from all [facility] This section includes future appointments and future orders which are active, pending orscheduled.Future Appointments This section includes appointments that were scheduled to occur 6 months from the date of the Encounter, up to a maximum of 20 appointments. The data comes from all [place] treatment [facility]. Appointment Date/Time Appointment Type Appointment Facili ty Name Jan 21, 2022 05:20 PM AMBULATORY - REHAB MEDICINE [facility] February 06, 2022 09:45 AM AMBULATORY - MEDICINE [facility] February 07, 2022 09:00 AM [facility]ORY - [facility] February 07, 2022 10:00 AM AM[facility]ULATORY - [facility] Feb 27, 2022 01:15 PM AMBULATORY - [facility] Mar 04, 2022 01:30 PM AMBULATORY [facility] Mar 11, 2022 09:00 AM AMBULATORY - REHAB MEDICINE [facility] Apr 22, 2022 03:30 PM AMBULATORY [facility] May 06, 2022 10:30 AM AMBULATORY - REHAB [facility] Active, Pending, and Scheduled Orders This section includes a listing of several types of active, pending, and scheduled orders, including clinic medications orders, diagnostic test orders, procedure orders and consult orders; where the start date of the order is 45 days before the date of the Encounter or 45 days after the date of the Encounter. The data comes from all [facility] [address] [facility]. Test Date/Time Test Type Test Details Facility Name Dec 24, 2021 08:07 AM Consult Order COMMUNITY [facility] GEN SERV Cons Master Craftsman's Choice Jan 09, 2022 12:00 AM Laboratory - Chemistry MICROALBUMIN/CREATI CARLINE [facility] Order E RATIO URINE URINE WC ONCE Jan 09, 2022 12:00 AM Laboratory - Chemistry BASIC METABOLIC MIN [facility] Order PANEL+MG PLASMA SP ONCE Jan 09, 2022 12:00 AM Laboratory - Chemistry HEMOGLOBIN A1C BLOO Coleman [facility] Order SP ONCE Social History: Smoking Status (Most current) and Tobacco Use (All prior to encounter date) This section includes the most current, and the historical, smoking and tobacco-related health factors from the [facility] where the Encounter took place.Current Smoking Status This section includes the most current smoking, or tobacco-related health factor, from the [facility] where the Encounter took place. Date/Time Current Smoking Status Comment Facility Jun 13, 2020 10:00 AM VA-TOBACCO FORMER USER MIN [facility] Tobacco Use History This section includes a history of the smoking, or tobacco- related health factors, that were collected on or before the date of the Encounter. The data comes from the [facility] where the Encounter took place. Date/Time Smoking Status/Tobacco Use Comment Facil it Jun 13, 2020 10:00 AM VA-TOBACCO QUIT 15 YRS OR MORE [facility] May 20, 2019 12:18 PM VA-TOBACCO FORMER USER MIN [facility] May 20, 2019 12:18 PM VA-TOBACCO QUIT 15 YRS OR MORE [facility] Jul 30, 2018 08:31 AM VA-TOBACCO FORMER USER MIN [facility] Jul 30, 2018 08:31 AM VA-TOBACCO QUIT 15 YRS OR MORE [facility] Aug 25, 2017 08:04 AM FORMER TOBACCO USER 7Y OR GREATER [facility] Nov 08, 2016 08:12 AM FORMER TOBACCO USER 7Y OR GREATER [facility] Nov 29, 2015 12:46 PM FORMER TOBACCO USER 7Y OR GREATER [facility] February 23, 2015 12:57 PM FORMER TOBACCO USER 7Y OR GREATER [facility] January 27, 2014 10:10 AM FORMER TOBACCO USER 7Y OR GREATER [facility] Mar 17, 2007 09:11 AM FORMER TOBACCO USER 7Y OR GREATER [facility] Advance Directives: All historical and current Section Date Range: From patient's date of to the date document was created. This section includes ALL of a patient's completed or amended [place] Advance and Rescinded Directives. The entries below indicate that a directive exists for the patient, but an actual copy is not included with this document. The data comes from all [facility]. Date Advance Directives Provider Source Mar 17, 2007 ADVANCE DIRECTIVE ALBERTO RODRIGUEZ [facility] Encounter Notes: All associated encounter notes This section contains the clinical notes associated to the Encounter. Date/Time Encounter Note(s) Provider Source Jan 17, 2022 08:37 AM REPORT OF CONTACT: DEBRA WALLS [facility] LOCAL TITLE: APPOINTMENT SCHEDULING NOTE STANDARD TITLE: REPORT OF CONTACT DATE OF NOTE: JAN 17, 2022@08:37 ENTRY DATE: JAN 17, 2022@08:37:06 AUTHOR: DEBRA WALLS EXP COSIGNER: URGENCY: STATUS: COMPLETED APPOINTMENT SCHEDULING NOTE Has ADDENDA Cancellation: [employer] not seen for scheduled appointment due to: [employer] cancelled. Sent letter by regular [place] mail to address on [place] [place] [address] [address] Temporary Address Start: Dec Temporary Address Stop: Contact: Called [employer] at: Dec If [employer] calls back, schedule appointment for : Activity: 10/11/2021 10:21 New Order entered by LAMAR PALACIO (PHYSICIAN) Order Text: Return to [facility] METABOLIC [facility] 3D o n or around ( Jan 09, 2022 ) for a total of 1 appointment(s) Prerequisites: Labs (NON-FASTING) Nature of Order: ELECTRONICALLY ENTERED [employer] called to cancel clinic a ppointment for December due to in [facility] in [place] and does not wish to reschedule at this time. Please review to determine if new order is needed with future date for scheduling needs. Thank you. Provider: please review veterans chart and medi cations for renewal needs (if appropriate). /jeffry/ DEBRA WALLS AMSA Signed: 01/17/2022 08:39 Receipt Acknowledged By: 01/19/2022 16:15 /jeffry/ LONA PALACIO MD PHYSICIAN 01/19/2022 ADDENDUM STATUS: COMPLETED question to scheduluer--is there a timeframe the would like us to check back with her on the reschedule and could MSA fo llow up at that time? thanks. /zhanna PALACIO MD PHYSICIAN Signed: 01/19/2022 16:16 Receipt Acknowledged By: * AWAITING SIGNATURE * DEBRA WALLS 01/22/2022 ADDENDUM STATUS: COMPLETED Scheduled called , He reports he does not wish to schedule his RTC visit at this time due to being in rehab center and un sure of his schedule. He requested to be contacted in a month to try to s hollie again. /jeffry/ DEBRA FREEDMAN Signed: 01/22/2022 10:50 Receipt Acknowledged By: * AWAITING SIGNATURE * LONA PALACIO
--- OUTSIDE RECORDS SUMMARY | 2022-05-21 11:10 | XMS_ITS | Encounter Summary ---
:1945 Author Organization [facility] rs Address [address] [place] [address] Support Name Relationship Address Phone AIMEE DURAN Unavailable [address] [place] [address] AIMEE DURAN Unavailable Unavailable RENEE, CARLO Unavailable [address] [phone] [place] [address] Insurance Providers: All historical and current Section [...] U-CARE OF MEDICARE MCR Sep 29, [id number] [phone] MILES HANSON SI PATIENT [facility] ADVANTAGE (WNR) 2019 003 00 4 MON (WNR) U-CARE OF MEDICARE MCR Sep 29, [id number] [phone] JANES Nguyen SI PATIENT [facility] (M) (WNR) 2008 1100 4 MON (WNR) U-CARE OF MEDICARE MCR Sep 29, RIVAAB [id number] [phone] JANES Nguyen SI PATIENT [facility] ADVANTAGE (WNR) 2008 1100 4 MON (WNR) [facility]ARE MCR MEDICARE MCR Sep 29, [id number] [phone] MILES HANSON SI PATIENT (WNR) ADVANTAGE (WNR) 2019 003 00 5 MON [facility] MEDICARE MCR Sep 29, [id number] [phone] Ihsan DURAN I PATIENT [facility] (WNR) 2010 [id number] MON [facility] (WNR) Selected Encounter This section includes the information on record at MS for the Encounter. Date/Time Encounter Type Encounter Description Reason Provider Source Jan 10, 2022 12:32 Outpatient Encounter CN FOLLOW-UP PM IHE Encounter Template Text not used by MS Plan of Treatment: Future Appointments (+ 6 months) and Future Tests (+/- 45 days) The Plan of Treatment section includes future care activities for the patient from all [facility]. This section includes future appointments and future orders which are active, pending orscheduled.Future Appointments This section includes appointments that were scheduled to occur 6 months from the date of the Encounter, up to a maximum of 20 appointments. The data comes from all [place] treatment [facility]. Appointment Date/Time Appointment Type Appointment Facili ty Name Jan 21, 2022 05:20 PM AMBULATORY - REHAB MEDICINE [facility] February 06, 2022 09:45 AM AMBULATORY - MEDICINE [facility] February 07, 2022 09:00 AM AMBULATORY - NONE [facility] February 07, 2022 10:00 AM AMBULATORY - NONE [facility] Feb 27, 2022 01:15 PM AMBULATORY - [facility] Mar 04, 2022 01:30 PM AMBULATORY - [facility] Mar 11, 2022 09:00 AM AMBULATORY - REHAB MEDICINE [facility] Apr 22, 2022 03:30 PM AMBULATORY - [facility] May 06, 2022 10:30 AM AMBULATORY - REHAB [facility] Active, Pending, and Scheduled Orders This section includes a listing of several types of active, pending, and scheduled orders, including clinic medications orders, diagnostic test orders, procedure orders and consult orders; where the start date of the order is 45 days before the date of the Encounter or 45 days after the date of the Encounter. The data comes from all [facility]. Test Date/Time Test Type Test Details Facility Name Dec 24, 2021 08:07 AM Consult Order COMMUNITY CARE-DENTAL [facility] GEN SERV Cons Senior Peoplesoft Developer's Choice Jan 09, 2022 12:00 AM Laboratory - Chemistry HEMOGLOBIN A1C BLOO D [facility] Order SP ONCE Jan 09, 2022 12:00 AM Laboratory - Chemistry MICROALBUMIN/CREATI CARLINE [facility] Order E RATIO URINE URINE WC ONCE Jan 09, 2022 12:00 AM Laboratory - Chemistry BASIC METABOLIC MIN [facility] Order PANEL+MG PLASMA SP ONCE Social History: Smoking Status (Most current) and Tobacco Use (All prior to encounter date) This section includes the most current, and the historical, smoking and tobacco-related health factors from the [facility] where the Encounter took place.Current Smoking Status This section includes the most current smoking, or tobacco-related health factor, from the [place] facility where the Encounter took place. Date/Time Current Smoking Status Comment Facility Jun 13, 2020 10:00 AM VA-TOBACCO FORMER USER MIN [facility] Tobacco Use History This section includes a history of the smoking, or tobacco- related health factors, that were collected on or before the date of the Encounter. The data comes from the [place] facility where the Encounter took place. Date/Time Smoking Status/Tobacco Use Comment Facil it Jun 13, 2020 10:00 AM VA-TOBACCO QUIT 15 YRS OR MORE [facility] May 20, 2019 12:18 PM VA-TOBACCO FORMER USER MIN [facility] May 20, 2019 12:18 PM VA-TOBACCO QUIT 15 YRS OR MORE [facility] Jul 30, 2018 08:31 AM VA-TOBACCO FORMER USER MIN [facility] Jul 30, 2018 08:31 AM VA-TOBACCO QUIT 15 YRS OR MORE [facility] Aug 25, 2017 08:04 AM FORMER TOBACCO USER 7Y OR GREATER [facility] Nov 08, 2016 08:12 AM FORMER TOBACCO USER 7Y OR GREATER [facility] Nov 29, 2015 12:46 PM FORMER TOBACCO USER 7Y OR GREATER [facility] February 23, 2015 12:57 PM FORMER TOBACCO USER 7Y OR GREATER [facility] January 27, 2014 10:10 AM FORMER TOBACCO USER 7Y OR GREATER [facility] Mar 17, 2007 09:11 AM FORMER TOBACCO USER 7Y OR GREATER [facility] Advance Directives: All historical and current Section Date Range: From patient's date of to the date document was created. This section includes ALL of a patient's completed or amended [place] Advance and Rescinded Directives. The entries below indicate that a directive exists for the patient, but an actual copy is not included with this document. The data comes from all [facility]. Date Advance Directives Provider Source Mar 17, 2007 ADVANCE DIRECTIVE ALBERTO RODRIGUEZ [facility] Encounter Notes: All associated encounter notes This section contains the clinical notes associated to the Encounter. Date/Time Encounter Note(s) Provider Source Jan 10, 2022 12:32 PM COMMUNITY HALF-WAY CARE NOTE: KATLYN MCDOWELL [facility] LOCAL TITLE: [facility] CARE COORDINATION NOTE STANDARD TITLE: COMMUNITY HALF-WAY CARE NOTE DATE OF NOTE: JAN 10, 2022@12:32 ENTRY DATE: JAN 10, 2022@12:33:08 AUTHOR: KATLYN MCDOWELL EXP COSIGNER: URGENCY: STATUS: COMPLETED SUBJECT: Pacemaker [facility] CARE COORDINATION NOTE Has ADDENDA Community Usp Program Care Coordination WHERE IS SEEKING CARE [place] REFERRING PROVIDER INFORMATION Usp: [facility] Referring Provider: Alberto Coles NP HALF-WAY POINT OF CONTACT FOR APPOINTMENT CO ORDINATION Name: Viri Mark RN Fax: TYPE OF REFERRAL Specialty Care: REASON FOR REFERRAL Trasfer ICD/pacemaker montor ing to [facility] Card[facility] Device [facility]. Procedure was done at [facility]. He currently has a medtronic device at the facility that is plugged into the wall. PLAN Provider to review for consult placement. /zhanna MCDOWELL RN Community Health Nurse Coordinator Signed: 01/10/2022 12:41 Receipt Acknowledged By: 01/10/2022 12:50 /zhanna HOANG MD Geriatric Services Chief/CLC Technical Advisor. 01/10/2022 ADDENDUM STATUS: COMPLETED Consult placed. /zhanna HOANG MD Geriatric Services Chief/CLC Technical Advisor. Signed: 01/10/2022 12:50
--- OUTSIDE RECORDS SUMMARY | 2022-05-21 11:10 | XMS_ITS | Encounter Summary ---
:1945 Author Organization [facility] rs Address [address] [place] [address] Support Name Relationship Address Phone AIMEE DURAN Unavailable [address] [place] [address] AIMEE DURAN Unavailable Unavailable RENEECARLO HANSON Unavailable [address] [phone] [place] [address] Insurance Providers: All historical and current Section [...] U-CARE OF MEDICARE MCR Sep 29, [id number] [phone] MILES HANSON SI PATIENT [facility] ADVANTAGE (WNR) 2019 003 00 4 MON (WNR) U-CARE OF MEDICARE MCR Sep 29, [id number] [phone] JANES Nguyen SI PATIENT [facility] (M) (WNR) 2008 1100 4 MON (WNR) U-CARE OF MEDICARE MCR Sep 29, [id number] [id number] [phone] JANES Nguyen SI PATIENT [facility] ADVANTAGE (WNR) 2008 1100 4 MON (WNR) [facility] MCR MEDICARE MCR Sep 29, [id number] [phone] MILES HANSON SI PATIENT (WNR) ADVANTAGE (WNR) 2019 003 00 5 MON [facility] MEDICARE MCR Sep 29, [id number] [phone] Ihsan DURAN I PATIENT [facility] (WNR) 2010 [id number] MON [facility] (WNR) Selected Encounter This section includes the information on record at [place] for the Encounter. Date/Time Encounter Type Encounter Reason Provider Source Description Dec 31, 2021 12:29 Outpatient TELEPHONE/ANCILLARY MIESHA FLORENCE PM Encounter IHE Encounter Template Text not used by NM Plan of Treatment: Future Appointments (+ 6 [...] 2022 05:20 PM AMBULATORY - REHAB MEDICINE [facility] February 06, 2022 09:45 AM AMBULATORY - MEDICINE [facility] February 07, 2022 09:00 AM [facility] February 07, 2022 10:00 AM AMBULATORY [facility] Feb 27, 2022 01:15 PM AMBULATORY [facility] Mar 04, 2022 01:30 PM AMBULATORY [facility] Mar 11, 2022 09:00 AM AMBULATORY - REHAB MEDICINE [facility] Apr 22, 2022 03:30 PM AMBULATORY [facility] May 06, 2022 10:30 [facility] Active, Pending, and Scheduled Orders This [...] The data comes from all [place] treatment [facility]. Test Date/Time Test Type Test Details Facility Name Dec 24, 2021 08:07 AM Consult Order COMMUNITY CARE-DENTAL MINN [facility] GEN SERV Cons Caregiver Services Home's Choice Jan 09, 2022 12:00 AM Laboratory - Chemistry BASIC METABOLIC MIN [facility] Order PANEL+MG PLASMA SP ONCE Jan 09, 2022 12:00 AM Laboratory - Chemistry MICROALBUMIN/CREATI CARLINE [facility] Order E RATIO URINE URINE WC ONCE Jan 09, 2022 12:00 AM Laboratory - Chemistry HEMOGLOBIN A1C BLOO D [facility] Order SP ONCE Social History: Smoking Status (Most current) and Tobacco Use (All prior to encounter date) This section includes the most current, and the historical, smoking and tobacco-related health factors from the [facility] where the Encounter took place.Current [...] AM VA-TOBACCO QUIT 15 YRS OR MORE [facility] May 20, 2019 12:18 PM VA-TOBACCO FORMER USER MIN [facility] May 20, 2019 12:18 PM VA-TOBACCO QUIT 15 YRS OR MORE [facility] Jul 30, 2018 08:31 AM VA-TOBACCO FORMER USER MIN [facility] Jul 30, 2018 08:31 AM VA-TOBACCO QUIT 15 YRS OR MORE [facility] Aug 25, 2017 08:04 AM FORMER TOBACCO USER 7Y OR GREATER [facility] Nov 08, 2016 08:12 AM FORMER TOBACCO USER 7Y OR GREATER [facility] Nov 29, 2015 12:46 PM FORMER TOBACCO USER 7Y OR GREATER [facility] February 23, 2015 12:57 PM FORMER TOBACCO USER 7Y OR GREATER [facility] January 27, 2014 10:10 AM FORMER TOBACCO USER 7Y OR GREATER [facility] Mar 17, 2007 09:11 AM FORMER TOBACCO USER 7Y OR GREATER [facility] Advance Directives: All historical and current Section Date Range: From patient's date of to the date document was created. This section includes ALL of a patient's completed or amended [place] Advance and Rescinded Directives. The entries below indicate that a directive exists for the patient, but an actual copy is not included with this document. The data comes from all [facility]. Date Advance Directives Provider Source Mar 17, 2007 ADVANCE DIRECTIVE ALBERTO RODRIGUEZ [facility] Encounter Notes: All associated encounter notes This section contains the clinical notes associated to the Encounter. Date/Time Encounter Note(s) Provider Source Dec 31, 2021 12:29 PM ADMINISTRATIVE NOTE: CHAPIS REBOLLAR [facility] LOCAL TITLE: BENEFICIARY TRAVEL(BT) STANDARD TITLE: ADMINISTRATIVE NOTE DATE OF NOTE: DEC 31, 2021@12:29 ENTRY DATE: DEC 31, 2021@12:29:35 AUTHOR: CHAPIS REBOLLAR EXP COSIGNER: URGENCY: STATUS: COMPLETED BENEFICIARY TRAVEL SPECIAL MODE TRANSPORTATION: I have informed the that, requests with insufficient evidence of functional need, containing information that ap pears inconsistent with clinical evidence or appears intentionally exag gerated to obtain eligibility will be referred for further review or returned for additional information or clarification. Point of Contact's E-mail: Phone/Pager/Extension: [phone] MEDICAL JUSTIFICATION [place] is not able to transfer into a private vehicle or medically appropriate common carrier, or requires additio nal assistance as outlined below. The clinical condition requiring the use of [place] Special Mode transportation to be safely transported are as follows: Severe deconditioning or functional limitation precluding private transportation with assistance This request is not for an inter-facility trans leticia WHEELCHAIR VAN/AMBULETTE (Police Crime Scene Technician Only; NO Medic al Attendant; Non-Emergent): Wheelchair type: Manual (tilt w/c) Date travel is to commence: Dec upfitter time (if needed): for future VA appointments Estimated time frame will require trans portation: 1 Year To and from all authorized VA and Non-VA care Additional Information: [place] currently resid es at [facility]: [address] [place] [address] P: [phone] Frequency: Round Trip Additional supporting information: Enroll for f [facility] appointments Currently residest at [facility]: [address] [address] P: [phone] /es/ LORETTA BAZAN AUTOMATIC DATA PROCESSING PLANNER COURTROOM DEPUTY Signed: 12/31/2021 12:34
--- OUTSIDE RECORDS SUMMARY | 2022-05-21 11:10 | XMS_ITS | Encounter Summary ---
:1945 Author Organization Department [facility] rs Address [address] [place] [address] Support Name Relationship Address Phone AIMEE DURAN Unavailable [address] [place] [address] AIMEE DURAN Unavailable Unavailable RENEE, CARLO Unavailable [address] [phone] [place] [address] Insurance Providers: All historical and current Section [...] U-CARE OF MEDICARE MCR Sep 29, [id number]_ [id number] [phone] MILES HANSON SI PATIENT [facility] ADVANTAGE (WNR) 2019 003 00 4 MON (WNR) U-CARE OF MEDICARE MCR Sep 29, [id number] [phone] JANES Nguyen SI PATIENT [facility] (M) (WNR) 2008 1100 4 MON (WNR) U-CARE OF MEDICARE MCR Sep 29, [id number] [phone] JANES Nguyen SI PATIENT [facility] ADVANTAGE (WNR) 2008 1100 4 MON (WNR) UCARE MCR MEDICARE MCR Sep 29, [id number]_ [id number] [phone] MILES HANSON SI PATIENT (WNR) ADVANTAGE (WNR) 2019 003 00 5 MON UCARE MEDICARE MCR Sep 29, [id number] [phone] Ihsan DURAN I PATIENT [facility] (WNR) 2010 [id number] MON [facility] (WNR) Selected Encounter This section includes the information on record at [place] for the Encounter. Date/Time Encounter Type Encounter Reason Provider Source Description Jan 03, 2022 Outpatient PM&RS PHYSICIAN ICD-10-CM THUAN HENDERSON 08:54 AM Encounter M62.81 Muscle KAREN Strong weakness (generalized) with Provider Comments: Muscle Weakness (Generalized) IHE Encounter Template Text not used by [facility] Assessments - Encounter Diagnoses This section includes the primary and secondary diagnoses documented for the Encounter. Date/Time Primary/Secondary Diagnosis Name Provider Source Diagnosis Jan 03, 2022 PRIMARY Muscle weakness THUAN HENDERSON [facility] 08:57 AM (generalized) KAREN J [facility] Jan 03, 2022 SECONDARY Cerebral THUAN HENDERSON V A 08:57 AM infarction, KAREN J HCS unspecified Plan of Treatment: Future Appointments (+ 6 months) and Future Tests (+/- 45 days) The Plan of Treatment section includes future care activities for the patient from all [place] treatmentfacilities. This section includes future appointments and future orders which are active, pending orscheduled.Future Appointments This section includes appointments that were scheduled to occur 6 months from the date of the Encounter, up to a maximum of 20 appointments. The data comes from all [place] treatment facilities. Appointment Date/Time Appointment Type Appointment Facili ty Name Jan 21, 2022 05:20 PM AMBULATORY - REHAB MEDICINE [facility] February 06, 2022 09:45 AM AMBULATORY - MEDICINE [facility] February 07, 2022 09:00 AM AMBULATORY - NONE [facility] February 07, 2022 10:00 AM AMBULATORY - NONE [facility] Feb 27, 2022 01:15 PM AMBULATORY - NONE [facility] Mar 04, 2022 01:30 PM AMBULATORY - NONE [facility] Mar 11, 2022 09:00 AM AMBULATORY - REHAB MEDICINE [facility] Apr 22, 2022 03:30 PM AM[facility]ULATORY - [facility] May 06, 2022 10:30 AM AMBULATORY - REHAB MEDICINE [facility] Active, Pending, and Scheduled Orders This section includes a listing of several types of active, pending, and scheduled orders, including clinic medications orders, diagnostic test orders, procedure orders and consult orders; where the start date of the order is 45 days before the date of the Encounter or 45 days after the date of the Encounter. The data comes from all [place] treatment facilities. Test Date/Time Test Type Test Details Facility Name Dec 24, 2021 08:07 AM Consult Order COMMUNITY CARE-DENTAL LUCHO BOLANOS [facility] GEN SERV Cons Orange Picker Machine Operator's Choice Jan 09, 2022 12:00 AM Laboratory - Chemistry HEMOGLOBIN A1C BLOO D [facility] Order SP ONCE Jan 09, 2022 12:00 AM Laboratory - Chemistry BASIC METABOLIC [facility] Order PANEL+MG PLASMA SP ONCE Jan 09, 2022 12:00 AM Laboratory - Chemistry MICROALBUMIN/CREATI CARLINE [facility] Order E RATIO URINE URINE WC ONCE Social History: Smoking Status (Most current) and Tobacco Use (All prior to encounter date) This section includes the most current, and the historical, smoking and tobacco-related health factors from the [place] facility where the Encounter took place.Current Smoking Status This section includes the most current smoking, or tobacco-related health factor, from the [place] facility where the Encounter took place. Date/Time Current Smoking Status Comment Facility Jun 13, 2020 10:00 AM VA-TOBACCO FORMER USER [facility] Tobacco Use History This section includes a history of the smoking, or tobacco- related health factors, that were collected on or before the date of the Encounter. The data comes from the [place] facility where the Encounter took place. Date/Time Smoking Status/Tobacco Use Comment Facil it Jun 13, 2020 10:00 AM VA-TOBACCO QUIT 15 YRS OR MORE [facility] May 20, 2019 12:18 PM VA-TOBACCO FORMER USER [facility] May 20, 2019 12:18 PM VA-TOBACCO QUIT 15 YRS OR MORE [facility] Jul 30, 2018 08:31 AM VA-TOBACCO FORMER USER [facility] Jul 30, 2018 08:31 AM VA-TOBACCO [...] ALL of a patient's completed or amended VA Advance and Rescinded Directives. The entries below indicate that a directive exists for the patient, but an actual copy is not included with this document. The data comes from all [place] facilities. Date Advance Directives Provider Source Mar 17, 2007 ADVANCE DIRECTIVE ALBERTO RODRIGUEZ [facility] Encounter Notes: All associated encounter notes This section contains the clinical notes associated to the Encounter. Date/Time Encounter Note(s) Provider Source Jan 03, 2022 08:54 AM COMMUNITY CORRECTION CARE CONSULT: KAYA ALVAREZ [facility] LOCAL TITLE: [facility] THERAPY AUTHORZATION CONSULT J STANDARD TITLE: [facility] CONS ULT DATE OF NOTE: JAN 03, 2022@08:54 ENTRY DATE: JAN 03, 2022@08:54:54 AUTHOR: KAYA HENDERSON EXP COSIGNER: URGENCY: STATUS: COMPLETED [facility] Authorization Diagnosis for treatment: Weakness, hemiplegia, C VA PT/OT Therapy Authorization: VERY HIGH Criteria: Up to 719 minutes pe r week with the following disciplines: - Speech Therapy: Please see separate authoriza tion - Physical Therapy: 5x/week for 4 weeks Summary: 76 y/o with PMHx of DM II, COPD, Bladder Cancer and HTN with 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 He is now in SNF for ongoing rehab. Previously living at home. PT to work on improving transfers to decrease burden o f care, improve balance, gait training, activity tolerance. Econsult and chart review total time: 14 minutes Comments: This contract prison Physical/Occupational (PT/OT) Therapy authorization request was reviewed using the [facility] documentation, therapy evaluation(s)and therapy treatment plan(s) provi ded by the prison. Supportive VA documentation was also reviewed if available. The [place] was not clinically examined by this provider as part of the review. Contract prison therapy authorization revi ews are conducted for the purposes of evaluating the appropriateness for t herapy consistent with VA practices and approval for VA payment for nursin g home therapy. Appropriate clinical care and medical clearance for therapy authorization requests are the responsibility of the contract prison provider. A current order for all therapies requested is required from the licensed independent practitioner directly overseeing this [place]'s care at the [facility]. /jeffry/ KAYA HENDERSON DO PHYSICIAN, PM&R Signed: 01/03/2022 08:57 Receipt Acknowledged By: * AWAITING SIGNATURE * JOHN HATCH
--- OUTSIDE RECORDS SUMMARY | 2022-05-21 11:10 | XMS_ITS | Encounter Summary ---
:1945 [address] [facility] rs Address [address] [place] [address] Support Name Relationship Address Phone AIMEE DURAN Unavailable [address] [place] [address] AIMEE DURAN Unavailable Unavailable RENEE, CARLO Unavailable [address] [phone] [place] [address] Insurance Providers: All historical and current Section [...] U-CARE OF MEDICARE MCR Sep 29, [id number] [phone] MILES HANSON SI PATIENT [facility] ADVANTAGE (WNR) 2019 003 00 4 MON (WNR) U-CARE OF MEDICARE MCR Sep 29, [id number] [phone] JANES Nguyen SI PATIENT [facility] (M) (WNR) 2008 1100 4 MON (WNR) U-CARE OF MEDICARE MCR Sep 29, RIVAAB [id number] [phone] JANES Nguyen SI PATIENT [facility] ADVANTAGE (WNR) 2008 1100 4 MON (WNR) UCARE MCR MEDICARE MCR Sep 29, [id number] [phone] MILES HANSON SI PATIENT (WNR) ADVANTAGE (WNR) 2019 003 00 5 MON [facility]ARE MEDICARE MCR Sep 29, [id number] [phone] Ihsan DURAN I PATIENT [facility] (WNR) 2010 [id number] MON [facility] (WNR) Selected Encounter This section includes the information on record at [place] for the Encounter. Date/Time Encounter Type Encounter Description Reason Provider Source Jan 01, 2022 03:11 Outpatient Encounter CN FOLLOW-UP PM IHE Encounter Template Text not used by [place] Plan of Treatment: Future Appointments (+ 6 months) and Future Tests (+/- 45 days) The Plan of Treatment section includes future care activities for the patient [facility] [place] [facility] This section includes future appointments and future orders which are active, pending orscheduled.Future Appointments This section includes appointments that were scheduled to occur 6 months from the date of the Encounter, up to a maximum of 20 appointments. The data comes from all [place] treatment [facility]. Appointment Date/Time Appointment Type Appointment Facili ty Name Jan 21, 2022 05:20 PM AMBULATORY - REHAB MEDICINE [facility] February 06, 2022 09:45 AM AMBULATORY - MEDICINE [facility] February 07, 2022 09:00 AM AMBULATORY - NONE [facility] February 07, 2022 10:00 AM AMBULATORY - NONE [facility] Feb 27, 2022 01:15 PM AMBULATORY - [facility] Mar 04, 2022 01:30 PM AMBULATORY - [facility] Mar 11, 2022 09:00 AM AMBULATORY - REHAB MEDICINE [facility] Apr 22, 2022 03:[address] [facility] May 06, 2022 10:30 AM AMBULATORY - REHAB [facility] Active, Pending, and Scheduled Orders This section includes a listing of several types of active, pending, and scheduled orders, including clinic medications orders, diagnostic test orders, procedure orders and consult orders; where the start date of the order is 45 days before the date of the Encounter or 45 days after the date of the Encounter. The data comes from all [facility]. Test Date/Time Test Type Test Details Facility Name Dec 24, 2021 08:07 AM Consult Order COMMUNITY CARE-DENTAL [facility] GEN SERV Cons [place] Collector's Choice Jan 09, 2022 12:00 AM Laboratory - Chemistry HEMOGLOBIN A1C BLOO D [facility] Order SP ONCE Jan 09, 2022 12:00 AM Laboratory - Chemistry [facility]IC [facility]ABOLIC [facility] PANEL+MG PLASMA SP ONCE Jan 09, 2022 12:00 AM Laboratory - Chemistry MICROALBUMIN/CREATI CARLINE [facility] Order E RATIO URINE URINE WC ONCE Social History: Smoking Status (Most current) and Tobacco Use (All prior to encounter date) This section includes the most current, and the historical, smoking and tobacco-related health factors from the [facility] where the Encounter took place.Current Smoking Status This section includes the most current smoking, or tobacco-related health factor, from the [place] facility where the Encounter took place. Date/Time Current Smoking Status Comment Facility Jun 13, 2020 10:00 AM VA-TOBACCO FORMER USER [facility] Tobacco Use History This section includes a history of the smoking, or tobacco- related health factors, that were collected on or before the date of the Encounter. The data comes from the [place] facility where the Encounter took place. Date/Time Smoking Status/Tobacco Use Comment Facil it Jun 13, 2020 10:00 AM VA-TOBACCO QUIT 15 YRS OR MORE [facility] May 20, 2019 12:18 PM VA-TOBACCO FORMER USER [facility] May 20, 2019 12:18 PM VA-TOBACCO QUIT 15 YRS OR MORE [facility] Jul 30, 2018 08:31 AM VA-TOBACCO FORMER USER [facility] Jul 30, 2018 08:31 AM VA-TOBACCO QUIT 15 YRS OR MORE [facility] Aug 25, 2017 08:04 AM FORMER TOBACCO USER 7Y OR GREATER [facility] Nov 08, 2016 08:12 AM FORMER TOBACCO USER 7Y OR GREATER [facility] Nov 29, 2015 12:46 PM FORMER TOBACCO USER 7Y OR GREATER [facility] February 23, 2015 12:57 PM FORMER TOBACCO USER 7Y OR GREATER [facility] January 27, 2014 10:10 AM FORMER TOBACCO USER 7Y OR GREATER [facility] Mar 17, 2007 09:11 AM FORMER TOBACCO USER 7Y OR GREATER [facility] Advance Directives: All historical and current Section Date Range: From patient's date of to the date document was created. This section includes ALL of a patient's completed or amended [place] Advance and Rescinded Directives. The entries below indicate that a directive exists for the patient, but an actual copy is not included with this document. The data comes from all [facility]. Date Advance Directives Provider Source Mar 17, 2007 ADVANCE DIRECTIVE ALBERTO RODRIGUEZ [facility] Encounter Notes: All associated encounter notes This section contains the clinical notes associated to the Encounter. Date/Time Encounter Note(s) Provider Source Jan 01, 2022 03:11 PM COMMUNITY LONGTERM CARE NOTE: KATLYN MCDOWELL [facility] LOCAL TITLE: [facility] CARE COORDINATION NOTE STANDARD TITLE: [facility]UNITY LONGTERM CARE NOTE DATE OF NOTE: JAN 01, 2022@15:11 ENTRY DATE: JAN 01, 2022@15:11:18 AUTHOR: KATLYN MCDOWELL EXP COSIGNER: URGENCY: STATUS: COMPLETED SUBJECT: Neurology [facility] CARE COORDINATION NOTE Has ADDENDA Community Shelter Program Care Coordination WHERE IS SEEKING CARE Care in the community Non-VA Provider Requested: Dr. Lala Location: [facility] Phone: Fax: REFERRING PROVIDER INFORMATION Shelter: [facility] Referring Provider: Dr. Larry Amador LONGTERM POINT OF CONTACT FOR APPOINTMENT CO ORDINATION Name: Viri Mark RN TYPE OF REFERRAL Specialty Care: Neurology REASON FOR REFERRAL Family would like care with [facility]u appt. orders faxed to [facility]. No appt. scheduled yet. PLAN Provider to review for consult placement. /jeffry/ KATLYN MCDOWELL RN Community Health Nurse Coordinator Signed: 01/01/2022 15:13 Receipt Acknowledged By: 01/02/2022 08:48 /jeffry/ Dakotah Page MD MD (Internal Medicine / Geriatrics) 01/02/2022 ADDENDUM STATUS: COMPLETED Referred to community care Neurology based on be medical interest /jeffry/ Dakotah Page MD MD (Internal Medicine / Geriatrics) Signed: 01/02/2022 08:48
--- OUTSIDE RECORDS SUMMARY | 2022-05-21 11:10 | XMS_ITS | Encounter Summary ---
:1945 Author Organization [facility] rs Address [address] [place] [address] Support Name Relationship Address Phone AIMEE DURAN Unavailable [address] [place] [address] AIMEE DURAN Unavailable Unavailable RENEE, CARLO Unavailable [address] [phone] [place] [address] Insurance Providers: All historical and current Section [...] U-CARE OF MEDICARE MCR Sep 29, [id number] [phone] MILES HANSON SI PATIENT [facility] ADVANTAGE (WNR) 2019 003 00 4 MON (WNR) U-CARE OF MEDICARE MCR Sep 29, [id number] [phone] JANES Nguyen SI PATIENT [facility] (M) (WNR) 2008 1100 4 MON (WNR) U-CARE OF MEDICARE MCR Sep 29, [id number] [phone] JANES Nguyen SI PATIENT [facility] ADVANTAGE (WNR) 2008 1100 4 MON (WNR) UCARE MCR MEDICARE MCR Sep 29, [id number]_ [id number] [phone] MILES HANSON SI PATIENT (WNR) ADVANTAGE (WNR) 2019 003 00 5 MON [facility]ARE MEDICARE MCR Sep 29, [id number] [phone] Ihsan DURAN I PATIENT [facility] (WNR) 2010 [id number] MON [facility] (WNR) Selected Encounter This section includes the information on record at [place] for the Encounter. Date/Time Encounter Type Encounter Reason Provider Source Description Jan 04, 2022 CASE MANAGEMENT [facility] FOLLOW-UP ICD-10-CM E11.8 GISELA REBOLLAR 01:48 PM Type 2 diabetes J mellitus with unspecified complications with Provider Comments: Type 2 diabetes mellitus ([facility] [id number]) IHE Encounter Template Text not used by [place] Assessments - Encounter Diagnoses This section includes the primary and secondary diagnoses documented for the Encounter. Date/Time Primary/Secondary Diagnosis Name Provider Source Diagnosis Jan 08, 2022 PRIMARY Type 2 diabetes CHAPIS REBOLLAR [facility] 08:06 AM mellitus with [facility] unspecified complications Jan 08, 2022 SECONDARY Cerebral CHAPIS REBOLLAR [facility] 08:06 AM infarction, J HCS unspecified Plan of Treatment: Future [...] 06, 2022 09:45 AM AMBULATORY - MEDICINE [facility] February 07, 2022 09:00 AM AMBULATORY - NONE [facility] February 07, 2022 10:00 AM AMBULATORY - NONE [facility] Feb 27, 2022 01:15 PM AMBULATORY - NONE [facility] Mar 04, 2022 01:30 PM AMBULATORY - [facility] Mar 11, 2022 09:00 AM AMBULATORY - REHAB MEDICINE [facility] Apr 22, 2022 03:30 PM AMBULATORY - [facility] May 06, 2022 10:30 AM AMBULATORY - REHAB MEDICINE [facility] Active, Pending, and Scheduled [...] the Encounter. The data comes from all [place] treatment facilities. Test Date/Time Test Type Test Details Facility Name Dec 24, 2021 08:07 AM Consult Order COMMUNITY CARE-DENTAL PAMELAAissatou [facility] GEN SERV Cons [place] Cannery Tender's Choice Jan 09, 2022 12:00 AM Laboratory - Chemistry HEMOGLOBIN A1C BLOO D [facility] Order SP ONCE Jan 09, 2022 12:00 AM Laboratory - Chemistry BASIC METABOLIC [facility] Order PANEL+MG PLASMA SP ONCE Jan 09, 2022 12:00 AM Laboratory - Chemistry MICROALBUMIN/CREATI CARLINE [facility] Order E RATIO URINE URINE WC ONCE [...] AM VA-TOBACCO QUIT 15 YRS OR MORE [facility] Tobacco Use History This section includes a history of the smoking, or tobacco- related health factors, that were collected on or before the date of the Encounter. The data comes from the [place] facility where the Encounter took place. Date/Time Smoking Status/Tobacco Use Comment Facil it Jun 13, 2020 10:00 AM VA-TOBACCO QUIT 15 YRS OR MORE [facility] May 20, 2019 12:18 PM VA-TOBACCO FORMER USER [facility] May 20, 2019 12:18 PM VA-TOBACCO QUIT 15 YRS OR MORE [facility] Jul 30, 2018 08:31 AM VA-TOBACCO FORMER USER [facility] Jul 30, 2018 08:31 AM VA-TOBACCO QUIT 15 YRS OR MORE [facility] Aug 25, 2017 08:04 AM FORMER TOBACCO USER 7Y OR GREATER [facility] Nov 08, 2016 08:12 AM FORMER TOBACCO USER 7Y OR GREATER [facility] Nov 29, 2015 12:46 PM FORMER TOBACCO USER 7Y OR GREATER [facility] February 23, 2015 12:57 PM FORMER TOBACCO USER 7Y OR GREATER [facility] January 27, 2014 10:10 AM FORMER TOBACCO USER 7Y OR GREATER [facility] Mar 17, 2007 09:11 AM FORMER TOBACCO USER 7Y OR GREATER [facility] Advance Directives: All historical and current Section [...] Mar 17, 2007 ADVANCE DIRECTIVE ROWENAALBERTO SHEARER [facility] Encounter Notes: All associated encounter notes This section contains the clinical notes associated to the Encounter. Date/Time Encounter Note(s) Provider Source Jan 04, 2022 01:48 PM [facility] CARE NOTE: RJ REBOLLAR [facility] LOCAL TITLE: [facility] STATUS REPORT STANDARD TITLE: [facility] CARE NOTE DATE OF NOTE: JAN 04, 2022@13:48 ENTRY DATE: JAN 04, 2022@13:48:51 AUTHOR: CHAPIS REBOLLAR EXP COSIGNER: URGENCY: STATUS: COMPLETED [facility] PROGRAM STATUS RE [place] senior living: [facility] contact: Kenya Veloz PROFILE Date admitted to the fpc: 12/28/21 Primary diagnosis related to fpc care: CVA Type of Contract [employer] Bill and VA contract start date: 12/28 Advanced directive on file: No Guardian/POA/Fiduciary: No On commitment: No Demographic information is updated in [place] Medical records: Yes Eligible for special mode transportation: Yes TYPE OF REVIEW [id number] visit with , family, and/or staff at fpc and clinical chart review completed by [place] Social Augustin regalado on Dec. Reference period: 12/28/21-01/07/22 SUMMARY OF VISIT resided at home with . Stirum was independent with all cares prior to hospitalization. Working with therapies to improve transfers, decrease burden of care, improve balance, gait training, activit y tolerance. Qual Research Manager met with in h is room. 's goal is to return home with . Is opening to having home ca re services. It is unclear if this goal is realistic at this time r/t the extensive assist he require s for ADLs. AND/OR FAMILY SATISFACTION AND OBSERVATI ON and/or family is satisfied with care:(i ncluding satisfaction with food, environment, staff, etc.) Yes has access to social and spiritual acti vities: Yes Staff is courteous and treats with dign ity: Yes Stirum has adjusted to care setting: N o, reports the care is fine at the facility, but does not want to be there and wants to return home. Concerns and/or complaints by and/or derian simons? No CLINICAL REVIEW Describe current and/or changes in status. Inclu de interventions. 1. Mental status or cognition: BIMS, cogn itively intact. 2. Mood and/or behaviors: E pisode of yelling out that he wanted water. Stirum is only able to have thicken liquids r/t stroke. kept grabbing at staff and acted like he was going to throw call light at staff member. Doesn't use call light and calls out when he requires assist ance. 3. Elopement: No 4. Physical and/or chemical restraints: No 5. Activities of daily living assistance: Veter an needs assist of one with meals and supervision during meals. is t otal assist of two with mechanical lift for transfer s. is extensive assist of one for dressing, hygiene, pericares. Resident is extensive assist of two with bed mobility. Using a tilt Broda chair, unable to propel a standard wh eelchair due to his (R) sided weakness 6. Bladder and bowel continence: Continent of b owel and bladder. 7. Pain: None noted. 8. Falls (Date, describe, & injury): No 9. Nutrition(Unplanned weight loss greater than 5% in last 30 days, hydration, swallowing, etc.): No 10. Most recent weight: 202.9 Date: 01/02/22 11. Skin (Pressure ulcer and/or other skin cond itions): No 12. Therapy (Physical therapy, Occupational the rapy or Speech Therapy): Yes VA authorization in place? Yes 13. Provider visits: Yes 01/03/22: BILL RECAPITULATION CLERK visit 14. Emergency Room/Hospitalizations: No 15. Medications error(s) resulting in injury: N o 16. Suspected and/or confirmed abuse and/or neg lect: No 17. Minimum Data Set Assessment Reference Date: Resource Utilization Group: In progress 18. Individualized care plan: Yes 19. has continued need for fpc level of care: Yes, ADL dependency PLAN: Continue routine oversight of 's care. Renita cox Bill review is due 01/24/22 /jeffry/ LORETTA BAZAN SOLE SPLITTER LORETTA Signed: 01/08/2022 08:06
--- OUTSIDE RECORDS SUMMARY | 2022-05-21 11:10 | XMS_ITS | Encounter Summary ---
:1945 Author Organization [facility] rs Address [address] [place] [address] Support Name Relationship Address Phone AIMEE COSTA Unavailable [address] [place] [address] AIMEE COSTA Unavailable Unavailable RENEE, ACRLO Unavailable [address] [phone] [place] [address] Insurance Providers: All historical and current Section [...] U-CARE OF MEDICARE MCR Sep 29, [id number] [phone] MILES HANSON SI PATIENT [facility] ADVANTAGE (WNR) 2019 003 00 4 MON (WNR) U-CARE OF MEDICARE MCR Sep 29, [id number] [phone] JANES Nguyen SI PATIENT [facility] (M) (WNR) 2008 1100 4 MON (WNR) U-CARE OF MEDICARE MCR Sep 29, [id number] [phone] JANES Nguyen SI PATIENT [facility] ADVANTAGE (WNR) 2008 1100 4 MON (WNR) UCARE MCR MEDICARE MCR Sep 29, [id number]_ [id number] [phone] MILES HANSON SI PATIENT (WNR) ADVANTAGE (WNR) 2019 003 00 5 MON UCARE MEDICARE MCR Sep 29, [id number] [phone] Ihsan COSTA I PATIENT [facility] (WNR) 2010 [id number] MON [facility] (WNR) Selected Encounter This section includes the information on record at [place] for the Encounter. Date/Time Encounter Type Encounter Description Reason Provider Source Jan 02, 2022 04:10 Outpatient Encounter SPEECH-LANGUAGE PM PATHOLOGY IHE Encounter Template Text not used by [place] Plan of Treatment: Future Appointments (+ 6 months) and Future Tests (+/- 45 days) The Plan of Treatment section includes future care activities for the patient from all [place] [facility]. This section includes future appointments and future orders which are active, pending orscheduled.Future Appointments This section includes appointments that were scheduled to occur 6 months from the date of the Encounter, up to a maximum of 20 appointments. The data comes from all [place] treatment [facility]. Appointment Date/Time Appointment Type Appointment Facili ty Name Jan 21, 2022 05:20 PM AMBULATORY - REHAB MEDICINE [facility] February 06, 2022 09:45 AM AMBULATORY - MEDICINE [facility] February 07, 2022 09:00 AM AMBULATORY - NONE [facility] February 07, 2022 10:00 AM AMBULATORY - NONE [facility] Feb 27, 2022 01:15 PM AMBULATORY - [facility] Mar 04, 2022 01:30 PM AMBULATORY - [facility] Mar 11, 2022 09:00 AM AMBULATORY - REHAB MEDICINE [facility] Apr 22, 2022 03:30 PM AMBULATORY [facility] May 06, 2022 10:30 AM AMBULATORY - REHAB [facility] Active, Pending, and Scheduled Orders This section includes a listing of several types of active, pending, and scheduled orders, including clinic medications orders, diagnostic test orders, procedure orders and consult orders; where the start date of the order is 45 days before the date of the Encounter or 45 days after the date of the Encounter. The data comes from all [facility]. Test Date/Time Test Type Test Details Facility Name Dec 24, 2021 08:07 AM Consult Order COMMUNITY CARE-DENTAL [facility] GEN SERV Cons Sheet Cutting Operator's Choice Jan 09, 2022 12:00 AM Laboratory - Chemistry HEMOGLOBIN A1C BLOO D [facility] Order SP ONCE Jan 09, 2022 12:00 AM Laboratory - Chemistry BASIC METABOLIC [facility] Order PANEL+MG PLASMA SP ONCE Jan 09, 2022 12:00 AM Laboratory - Chemistry MICROALBUMIN/CREATI CARLINE [facility] Order E RATIO URINE URINE WC ONCE Social History: Smoking Status (Most current) and Tobacco Use (All prior to encounter date) This section includes the most current, and the historical, smoking and tobacco-related health factors from the [facility] where the Encounter took place.Current Smoking Status This section includes the most current smoking, or tobacco-related health factor, from the [place] facility where the Encounter took place. Date/Time Current Smoking Status Comment Facility Jun 13, 2020 10:00 AM VA-TOBACCO FORMER USER [facility] Tobacco Use History This section includes a history of the smoking, or tobacco- related health factors, that were collected on or before the date of the Encounter. The data comes from the [place] facility where the Encounter took place. Date/Time Smoking Status/Tobacco Use Comment Facil it Jun 13, 2020 10:00 AM VA-TOBACCO QUIT 15 YRS OR MORE [facility] May 20, 2019 12:18 PM VA-TOBACCO FORMER USER [facility] May 20, 2019 12:18 PM VA-TOBACCO QUIT 15 YRS OR MORE [facility] Jul 30, 2018 08:31 AM VA-TOBACCO FORMER USER [facility] Jul 30, 2018 08:31 AM VA-TOBACCO QUIT 15 YRS OR MORE [facility] Aug 25, 2017 08:04 AM FORMER TOBACCO USER 7Y OR GREATER [facility] Nov 08, 2016 08:12 AM FORMER TOBACCO USER 7Y OR GREATER [facility] Nov 29, 2015 12:46 PM FORMER TOBACCO USER 7Y OR GREATER [facility] February 23, 2015 12:57 PM FORMER TOBACCO USER 7Y OR GREATER [facility] January 27, 2014 10:10 AM FORMER TOBACCO USER 7Y OR GREATER [facility] Mar 17, 2007 09:11 AM FORMER TOBACCO USER 7Y OR GREATER [facility] Advance Directives: All historical and current Section Date Range: From patient's date of to the date document was created. This section includes ALL of a patient's completed or amended [place] Advance and Rescinded Directives. The entries below indicate that a directive exists for the patient, but an actual copy is not included with this document. The data comes from all [facility]. Date Advance Directives Provider Source Mar 17, 2007 ADVANCE DIRECTIVE ALBERTO RODRIGUEZ [facility] Encounter Notes: All associated encounter notes This section contains the clinical notes associated to the Encounter. Date/Time Encounter Note(s) Provider Source Jan 02, 2022 04:18 PM COMMUNITY SHELTER CARE CONSULT: ARGELIA BENNETT [facility] LOCAL TITLE: [facility] SPEECH LANGUAGE PATHOLOGY AUTH ORIZATION CONSULT STANDARD TITLE: COMMUNITY SHELTER CARE CONS ULT DATE OF NOTE: JAN 02, 2022@16:18 ENTRY DATE: JAN 02, 2022@16:18:40 AUTHOR: ARGELIA TOMAS EXP COSIGNER: URGENCY: STATUS: COMPLETED [facility] SPEECH LANGUAGE PATHOLOGY AUTHORIZATION CONSULT Has ADDENDA Community Detention Authorization REQUEST TYPE, DURATION, FREQUENCY DENIED/APPROVE D: 5x/week x 4 weeks. Approve. Total of 1200 minute s Recommend completing an MBS at this [facility], to further assess swallow function, to help guide swallow treatment, swallow strateg ies and diet recommendations. Consider further, higher level, aphasia assessme nt. Approve, If further treatment is recommended, ple ase consider adjusting Cog/com STGs to be more specific and measurable, such as: - Pt will develop a personalized Memory book wit h TRAVELING REPRESENTATIVE assistance to help recall information that is important to him, - Pt will develop 2 strategies, with TRAVELING REPRESENTATIVE assista nce, that help him compensate for reduced memory/word finding, (if appropriat e) - Pt will locate information in his memory book, given page, with __% accuracy. - Pt will complete a personally relevant task fo r the next day using written and environmental cues in 2 of 4 opportunities, - Pt will safely (transfer, ...) using ___ _ (a written checklist, extra time and double checking,...) in __ of ___ oppo rtunities. - Pt will request medications within 30 min of s cheduled times with written reminders, alarms, ... in 4 of 5 opportunities. - Pt will participate in casual conversation for __ minutes with __ or fewer repetitions/cues needed to successfully communi christiano ideas and decrease frustration with communication breakdowns. Diagnosis for treatment: dysphagia, dysarthria, cog/com, (aphasia?) Comments: Mr. Costa is a 76 year old who sustaine d a L CVA and has dysphagia, cognitive communication deficits and dysarthria. He is tolerating a [facility] Soft diet with moderately thick liquids and needs max cues for swallow techniques/safety. No instrumental swallow evalu ation has been completed yet, and may be helpful in developing a treatment ana n and adjusting diet recs and swallow strategies. This [facility] Speech Therapy author ization request was reviewed using the medical documenta tion, therapy evaluation(s) and therapy treatment plan(s) provided by the [facility]. Supportive VA documentation was also reviewed if available. Th e [place] was not clinically examined by this provider as part of the review. /es/ ARGELIA TOMAS MA, [facility]-TR[facility]ELING REPRESENTATIVE SPEECH LANGUAGE PATHOLOGIST Signed: 01/03/2022 09:03 Receipt Acknowledged By: * AWAITING SIGNATURE * ALICJA DILLON * AWAITING SIGNATURE * JOHN HATCH 01/03/2022 09:12 /jeffry/ KAYA HENDERSON DO PHYSICIAN, PM&R 01/03/2022 09:13 /jeffry/ RAMU FOX INSURANCE COUNSELOR 01/03/2022 ADDENDUM STATUS: COMPLETED Agree with TRAVELING REPRESENTATIVE authorization as noted above. Barium swallow ordered. /jeffry/ KAYA HENDERSON DO PHYSICIAN, PM&R Signed: 01/03/2022 09:14
--- OUTSIDE RECORDS SUMMARY | 2022-05-21 11:10 | XMS_ITS | Encounter Summary ---
:1945 Author Organization [facility] rs Address [address] [place] [address] Support Name Relationship Address Phone AIMEE DURAN Unavailable [address] [place] [address] AIMEE DURAN Unavailable Unavailable RENEE, CARLO Unavailable [address] [phone] [place] [address] Insurance Providers: All historical and current Section [...] U-CARE OF MEDICARE MCR Sep 29, [id number] [phone] MILES HANSON SI PATIENT [facility] ADVANTAGE (WNR) 2019 003 00 4 MON (WNR) U-CARE OF MEDICARE MCR Sep 29, [id number] [phone] JANES Nguyen SI PATIENT [facility] (M) (WNR) 2008 1100 4 MON (WNR) U-CARE OF MEDICARE MCR Sep 29, RIVAAB [id number] [phone] JANES Nguyen SI PATIENT [facility] ADVANTAGE (WNR) 2008 1100 4 MON (WNR) UCARE MCR MEDICARE MCR Sep 29, [id number]_ [id number] [phone] MILES HANSON SI PATIENT (WNR) ADVANTAGE (WNR) 2019 003 00 5 MON [facility]ARE MEDICARE MCR Sep 29, [id number] [phone] Ihsan DURAN I PATIENT [facility] (WNR) 2010 [id number] MON [facility] (WNR) Selected Encounter This section includes the information on record at [place] for the Encounter. Date/Time Encounter Type Encounter Description Reason Provider Source Dec 31, 2021 07:43 Outpatient Encounter COMMUNITY CARE AM CONSULT IHE Encounter Template Text not used by [place] Plan of Treatment: Future Appointments (+ 6 months) and Future Tests (+/- 45 days) The Plan of Treatment section includes future care activities for the patient from all [place] [facility]. This section includes future appointments and future orders which are active, pending orscheduled.Future Appointments This section includes appointments that were scheduled to occur 6 months from the date of the Encounter, up to a maximum of 20 appointments. The data comes from all [place] treatment [facility]. Appointment Date/Time Appointment Type Appointment Facili ty Name Jan 21, 2022 05:20 PM AMBULATORY - REHAB MEDICINE [facility] February 06, 2022 09:45 AM AMBULATORY - MEDICINE [facility] February 07, 2022 09:00 AM AMBULATORY - NONE [facility] February 07, 2022 10:00 AM AMBULATORY - NONE [facility] Feb 27, 2022 01:15 PM AMBULATORY - [facility] Mar 04, 2022 01:30 PM AMBULATORY - [facility] Mar 11, 2022 09:00 AM AMBULATORY - REHAB MEDICINE [facility] Apr 22, 2022 03:30 PM AMBULATORY [facility] May 06, 2022 10:30 AM AMBULATORY - REHAB [facility] Active, Pending, and Scheduled [...] the Encounter. The data comes from all [facility]. Test Date/Time Test Type Test Details Facility Name Dec 24, 2021 08:07 AM Consult Order COMMUNITY CARE-DENTAL [facility] GEN SERV Cons Black Top Machine Operator's Choice Jan 09, 2022 12:00 AM Laboratory - Chemistry HEMOGLOBIN A1C BLOO D [facility] Order SP ONCE Jan 09, 2022 12:00 AM Laboratory - Chemistry BASIC METABOLIC [facility] Order PANEL+MG PLASMA SP ONCE Jan 09, 2022 12:00 AM Laboratory - Chemistry MICROALBUMIN/CREATI [facility] Order E RATIO URINE URINE WC ONCE Advance Directives: All historical and current Section [...] Provider Source Mar 17, 2007 ADVANCE DIRECTIVE JENNIFERALBERTO Anjana [facility] Encounter Notes: All associated encounter notes This section contains the clinical notes associated to the Encounter. Date/Time Encounter Note(s) Provider Source Dec 31, 2021 07:43 AM NONVA NOTE: ALBERTO PRICE [facility] LOCAL TITLE: COMMUNITY CARE COORDINATION PLAN STANDARD TITLE: NONVA NOTE DATE OF NOTE: DEC 31, 2021@07:43 ENTRY DATE: DEC 31, 2021@07:43:17 AUTHOR: ALBERTO PRICE EXP COSIGNER: URGENCY: STATUS: COMPLETED SUBJECT: 12/23/2021 Hospital notification [place] self-presented to community emergency fa cility Emergency Notification Intake Date Presenting to the Facility: Nov [facility] Hospital Name: Hospital: [facility] Address: City: [place] State: Zip Code: Phone : Chief complaint: Stroke Primary Diagnosis: Patient Admitted? Yes Route of Admission: ER Date/Time of Admission: 12/23/2021 Admitting Diagnosis: Stroke No Records available: Per record review DC 12/24/2021. No DC connor mmary available at this time Request for records faxed to facility Only for facility outside of [facility] Alerting PACT as an FYI Notification ID: [id number] Closed - Approved for 1728 /jeffry/ ALBERTO PRICE CLOSING SPECIALIST Signed: 12/31/2021 07:45 Receipt Acknowledged By: * AWAITING SIGNATURE * OLGA LIDIA BAI
--- OUTSIDE RECORDS SUMMARY | 2022-05-21 11:10 | XMS_ITS | Encounter Summary ---
:1945 Author Organization [facility] rs Address [address] [place] [address] Support Name Relationship Address Phone AIMEE DURAN Unavailable [address] [place] [address] AIMEE DURNA Unavailable Unavailable RENEE, CARLO Unavailable [address] [phone] [place] [address] Insurance Providers: All historical and current Section [...] U-CARE OF MEDICARE MCR Sep 29, [id number]_ [id number] [phone] MILES HANSON SI PATIENT [facility] ADVANTAGE (WNR) 2019 003 00 4 MON (WNR) U-CARE OF MEDICARE MCR Sep 29, [id number] [phone] JANES Nguyen SI PATIENT [facility] (M) (WNR) 2008 1100 4 MON (WNR) U-CARE OF MEDICARE MCR Sep 29, [id number] [id number] [phone] JANES Nguyen SI PATIENT [facility] ADVANTAGE (WNR) 2008 1100 4 MON (WNR) UCARE MCR MEDICARE MCR Sep 29, [id number]_ [id number] [phone] MILES HANSON SI PATIENT (WNR) ADVANTAGE (WNR) 2019 003 00 5 MON UCARE MEDICARE MCR Sep 29, [id number] [phone] Ihsan DURAN I PATIENT [facility] (WNR) 2010 [id number] MON [facility] (WNR) Selected Encounter This section includes the information on record at [place] for the Encounter. Date/Time Encounter Type Encounter Description Reason Provider Source Dec 28, 2021 10:08 Outpatient Encounter COMMUNITY CARE AM CONSULT IHE Encounter Template Text not used by [place] Plan of Treatment: Future Appointments (+ 6 months) and Future Tests (+/- 45 days) The Plan of Treatment section includes future care activities for the patient from all [place] [facility]. This section includes future appointments and future orders which are active, pending orscheduled.Future Appointments This section includes appointments that were scheduled to occur 6 months from the date of the Encounter, up to a maximum of 20 appointments. The data comes from all [place] treatment [facility]. Appointment Date/Time Appointment Type Appointment Facili ty Name Jan 21, 2022 05:20 PM AMBULATORY - REHAB MEDICINE [facility] February 06, 2022 09:45 AM AMBULATORY - MEDICINE [facility] February 07, 2022 09:00 AM AMBULATORY - NONE [facility] February 07, 2022 10:00 AM AMBULATORY - NONE [facility] Feb 27, 2022 01:15 PM AMBULATORY - [facility] Mar 04, 2022 01:30 PM AMBULATORY - [facility] Mar 11, 2022 09:00 AM AMBULATORY - REHAB MEDICINE [facility] Apr 22, 2022 03:[address] [facility] May 06, 2022 10:30 AM AMBULATORY - REHAB [facility] Active, Pending, and Scheduled Orders This section includes a listing of several types of active, pending, and scheduled orders, including clinic medications orders, diagnostic test orders, procedure orders and consult orders; where the start date of the order is 45 days before the date of the Encounter or 45 days after the date of the Encounter. The data comes from all [facility]. Test Date/Time Test Type Test Details Facility Name Dec 24, 2021 08:07 AM Consult Order COMMUNITY CARE-DENTAL [facility]N [facility] GEN SERV Cons Frame Welder Cargo Utility Trailers's Choice Jan 09, 2022 12:00 AM Laboratory - Chemistry HEMOGLOBIN A1C BLOO D [facility] Order SP ONCE Jan 09, 2022 12:00 AM Laboratory - Chemistry BASIC METABOLIC [facility] Order PANEL+MG PLASMA SP ONCE Jan 09, 2022 12:00 AM Laboratory - Chemistry MICROALBUMIN/CREATI CARLINE [facility] Order E RATIO URINE URINE WC ONCE [...] Interpretation Reference Range Comment Nov 30, 2021 [facility] COVID-19 AND FLU/RSV DIAG Sp ecimen Type: NASOPHARYNGEAL 07:55 AM PANEL(CEPHEID) Comment: Cephei d GeneXpert (618) Ordering Provid er: SAHARA CEVALLOS Report Released Date/Time: Nov 28, 2021 09:05 AM Reporting Lab: [facility] [address] [facility] [id number] Performing Lab: [facility] [address] [id number] COVID-19 (CEPHEID) DETECTED HH Not Detecte d INFLUENZA A (PCR) Not Detected Not Detec geovanny INFLUENZA B (PCR) Not Detected Not Detec geovanny RSV (PCR) Not Detected Not Detected Advance Directives: All historical and current Section Date Range: From patient's date of to the date document was created. This section includes ALL of a patient's completed or amended [place] Advance and Rescinded Directives. The entries below indicate that a directive exists for the patient, but an actual copy is not included with this document. The data comes from all [place] facilities. Date Advance Directives Provider Source Mar 17, 2007 ADVANCE DIRECTIVE ALBERTO RODRIGUEZ [facility] Encounter Notes: All associated encounter notes This section contains the clinical notes associated to the Encounter. Date/Time Encounter Note(s) Provider Source Dec 28, 2021 10:11 AM NONVA NOTE: KHOA MARTINEZ [facility] LOCAL TITLE: COMMUNITY CARE COORDINATION PLAN STANDARD TITLE: NONVA NOTE DATE OF NOTE: DEC 28, 2021@10:11 ENTRY DATE: DEC 28, 2021@10:11:46 AUTHOR: KHOA MARTINEZ EXP COSIGNER: URGENCY: STATUS: COMPLETED SUBJECT: 12/25/2021 Hospital Notification COMMUNITY CARE COORDINATION PLAN Has ADDEND A self-presented to community emergency fa cility Emergency Notification Intake Date Presenting to the Facility: Nov [facility] Name: Hospital: [facility] Address: City: [facility] State: Zip Code: Phone : Chief complaint: Stroke-like symptoms Primary Diagnosis: Patient Admitted? Yes Route of Admission: ER Date/Time of Admission: Nov@12:15 Admitting Diagnosis: Stroke-like symptoms Community Care Provider: Confirm Level of Care: Records Available: 12/26/2021 ED/DC received and sent to scanning Alerting PACT as an FYI Notification ID: Closed - Approved for 170 /jeffry/ KHOA MARTINEZ HOTEL OPERATION MANAGER Signed: 12/28/2021 10:14 Receipt Acknowledged By: 12/28/2021 12:05 /jeffry/ KENJI HUGHES RN-BSN REGISTERED NURSE 12/28/2021 ADDENDUM STATUS: COMPLETED Community Care Coordination Plan CONTINUED STAY REVIEW Follow Up December 28, 2021 Hospitalist Progress Note: status: Resting in bed. Alert, oriented and follows all commands. Speech and and swallowing appear to be improving. Right sided w eakness unchanged. Procedure: EO study 12/27 Imaging: CT of head/brain 12/25, x ray of forear m 12/25, MRI of head 12/25, MRA of carotids 12/25, Echocardiogram 12/26 Plan: Workup: Initial CT reviewed and visualized today: Negati ve CT Perfusion: negative MRI reviewed and visualized today: multifocal, b ilateral infarcts Large Vessel MRA reviewed an d visualized today: 60% ZOË stenosis, 50% stenosis left vertebral artery Cardiac: TTE : Negative JOSE L : not done EKG reviewed and visualized today: Sinus Rhythm 1st degree AVB 12/25, SR 2nd degree AVB type 1, SR 12/26 - Multifocal, bilateral acute ischemic strokes Continue ASA and Plavix daily for 90 days, then ASA daily for life MRA negative for stroke etiology Telemetry, continue inpatient, ILR placed yester day Echo negative D-dimer 1,217, recent COVID infection 3-4 weeks ago, not the cause of stroke -PT/OT and Speech Anticipated Length of Stay: Unknown Disposition: Unknown at this time /jeffry/ KENJI HUGHES RN-BSN REGISTERED NURSE Signed: 12/28/2021 12:24 12/31/2021 ADDENDUM STATUS: COMPLETED Community Care Coordination Plan DISCHARGE PLANNING Admitted to inpatient care on November. Patient's admitting diagnosis ischemic stroke. Is Case Management needed? No Is Disease Management needed? No Anticipated discharge date of December. Anticipated discharge diagnosis ischemic stroke . Discharge Summary rec'd, available for review i n LUI/BARRY. Requested services include: PT/OT/speech 6 week stroke follow-up (neurology) PCP follow-up recommended in 7 days. Alerting Ashley to [facility]. Discharg ed to SNF. /jeffry/ KENJI HUGHES RN-BSN REGISTERED NURSE Signed: 12/31/2021 10:50 Receipt Acknowledged By: * AWAITING SIGNATURE * OLGA LIDIA BAI
--- OUTSIDE RECORDS SUMMARY | 2022-05-21 11:10 | XMS_ITS | Encounter Summary ---
:1945 Author Organization [facility] rs Address [address] [place] [address] Support Name Relationship Address Phone AIEME DURAN Unavailable [id number] [place] [address] AIMEE DURAN Unavailable Unavailable RENEE, CARLO Unavailable [address] [phone] [place] [address] Insurance Providers: All historical and current Section [...] U-CARE OF MEDICARE MCR Sep 29, [id number] [phone] MILES HANSON SI PATIENT [facility] ADVANTAGE (WNR) 2019 003 00 4 MON (WNR) U-CARE OF MEDICARE MCR Sep 29, [id number] [phone] JANES Nguyen SI PATIENT [facility] (M) (WNR) 2008 1100 4 MON (WNR) U-CARE OF MEDICARE MCR Sep 29, [id number] [id number] [phone] JANES Nguyen SI PATIENT [facility] ADVANTAGE (WNR) 2008 1100 4 MON (WNR) [facility] MCR MEDICARE MCR Sep 29, [id number] [phone] MILES HANSON SI PATIENT (WNR) ADVANTAGE (WNR) 2019 003 00 5 MON [employer] MEDICARE MCR Sep 29, [id number] [phone] Ihsan DURAN I PATIENT [facility] (WNR) 2010 [id number] MON [facility] (WNR) Selected Encounter This section includes the information on record at [place] for the Encounter. Date/Time Encounter Type Encounter Description Reason Provider Source Dec 31, 2021 12:00 Outpatient Encounter EVENT (HISTORICAL) AM IHE Encounter Template Text not used by [place] Plan of Treatment: Future Appointments (+ 6 months) and Future Tests (+/- 45 days) The Plan of Treatment section includes future care activities for the patient [facility] [place] [facility] This section includes future appointments and future orders which are active, pending orscheduled.Future Appointments This section includes appointments that were scheduled to occur 6 months from the date of the Encounter, up to a maximum of 20 appointments. The data comes from all [place] treatment [facility]. Appointment Date/Time Appointment Type Appointment Facili ty Name Jan 21, 2022 05:20 PM AMBULATORY - REHAB MEDICINE [facility] February 06, 2022 09:45 AM AMBULATORY - MEDICINE [facility] February 07, 2022 09:00 AM AMBULATORY - NONE [facility] February 07, 2022 10:00 AM AMBULATORY - NONE [facility] Feb 27, 2022 01:15 PM AMBULATORY - [facility] Mar 04, 2022 01:30 PM AMBULATORY - [facility] Mar 11, 2022 09:00 AM AMBULATORY - REHAB MEDICINE [facility] Apr 22, 2022 03:30 PM AMBULATORY [facility] May 06, 2022 10:30 AM AMBULATORY - REHAB [facility] Active, Pending, and Scheduled Orders This section includes a listing of several types of active, pending, and scheduled orders, including clinic medications orders, diagnostic test orders, procedure orders and consult orders; where the start date of the order is 45 days before the date of the Encounter or 45 days after the date of the Encounter. The data comes from all [facility]. Test Date/Time Test Type Test Details Facility Name Dec 24, 2021 08:07 AM Consult Order COMMUNITY CARE-DENTAL [facility] GEN SERV Cons Speech Professor's Choice Jan 09, 2022 12:00 AM Laboratory - Chemistry HEMOGLOBIN A1C BLOO D [facility] Order SP ONCE Jan 09, 2022 12:00 AM Laboratory - Chemistry BASIC METABOLIC MIN [facility] Order PANEL+MG PLASMA SP ONCE Jan 09, 2022 12:00 AM Laboratory - Chemistry MICROALBUMIN/CREATI CARLINE [facility] Order E RATIO URINE URINE WC ONCE Social History: Smoking Status (Most current) and Tobacco Use (All prior to encounter date) This section includes the most current, and the historical, smoking and tobacco-related health factors from the [facility] where the Encounter took place.Current Smoking Status This section includes the most current smoking, or tobacco-related health factor, from the [place] facility where the Encounter took place. Date/Time Current Smoking Status Comment Facility Jun 13, 2020 10:00 AM VA-TOBACCO FORMER USER [facility] Tobacco Use History This section includes a history of the smoking, or tobacco- related health factors, that were collected on or before the date of the Encounter. The data comes from the [place] facility where the Encounter took place. Date/Time Smoking Status/Tobacco Use Comment Facil it Jun 13, 2020 10:00 AM [place]-TOBACCO QUIT 15 YRS OR MORE [facility] May 20, 2019 12:18 PM VA-TOBACCO FORMER USER [facility] May 20, 2019 12:18 PM VA-TOBACCO QUIT 15 YRS OR MORE [facility] Jul 30, 2018 08:31 AM VA-TOBACCO FORMER USER [facility] Jul 30, 2018 08:31 AM VA-TOBACCO QUIT 15 YRS OR MORE [facility] Aug 25, 2017 08:04 AM FORMER TOBACCO USER 7Y OR GREATER [facility] Nov 08, 2016 08:12 AM FORMER TOBACCO USER 7Y OR GREATER [facility] Nov 29, 2015 12:46 PM FORMER TOBACCO USER 7Y OR GREATER [facility] February 23, 2015 12:57 PM FORMER TOBACCO USER 7Y OR GREATER [facility] January 27, 2014 10:10 AM FORMER TOBACCO USER 7Y OR GREATER [facility] Mar 17, 2007 09:11 AM FORMER TOBACCO USER 7Y OR GREATER [facility] Advance Directives: All historical and current Section Date Range: From patient's date of to the date document was created. This section includes ALL of a patient's completed or amended [place] Advance and Rescinded Directives. The entries below indicate that a directive exists for the patient, but an actual copy is not included with this document. The data comes from all [facility]. Date Advance Directives Provider Source Mar 17, 2007 ADVANCE DIRECTIVE ALBERTO RODRIGUEZ [facility]
--- OUTSIDE RECORDS SUMMARY | 2022-05-21 11:10 | XMS_ITS | Encounter Summary ---
:1945 Author Organization [facility] rs Address [address] [place] [address] Support Name Relationship Address Phone AIMEE DURAN Unavailable [address] [place] [address] AIMEE DURAN Unavailable Unavailable RENEECARLO HANSON Unavailable [address] [phone] [place] [address] Insurance Providers: All historical and current Section [...] U-CARE OF MEDICARE MCR Sep 29, [id number] [phone] MILES HANSON SI PATIENT [facility] ADVANTAGE (WNR) 2019 003 00 4 MON (WNR) U-CARE OF MEDICARE MCR Sep 29, [id number] [phone] JANES Nguyen SI PATIENT [facility] (M) (WNR) 2008 1100 4 MON (WNR) U-CARE OF MEDICARE MCR Sep 29, [id number] [id number] [phone] JANES Nguyen SI PATIENT [facility] ADVANTAGE (WNR) 2008 1100 4 MON (WNR) [facility] MCR MEDICARE MCR Sep 29, [id number] [phone] MILES HANSON SI PATIENT (WNR) ADVANTAGE (WNR) 2019 003 00 5 MON [facility] MEDICARE MCR Sep 29, [id number] [phone] RENEE,S I PATIENT [facility] (WNR) 2010 [id number] MON [facility] (WNR) Selected Encounter This section includes the information on record at [place] for the Encounter. Date/Time Encounter Type Encounter Description Reason Provider Source Jan 09, 2022 08:50 Outpatient Encounter ENDOCRINOLOGY AM IHE Encounter Template Text not used by [place] Plan of Treatment: Future Appointments (+ 6 months) and Future Tests (+/- 45 days) The Plan of Treatment section includes future care activities for the patient [facility] [place] [facility] This section includes future appointments and future orders which are active, pending orscheduled.Future Appointments This section includes appointments that were scheduled to occur 6 months from the date of the Encounter, up to a maximum of 20 appointments. The data comes from all [place] treatment [facility]. Appointment Date/Time Appointment Type Appointment Facili ty Name Jan 21, 2022 05:20 PM AMBULATORY - REHAB MEDICINE [facility] February 06, 2022 09:45 AM AMBULATORY - MEDICINE [facility] February 07, 2022 09:00 AM AMBULATORY - NONE [facility] February 07, 2022 10:00 AM AMBULATORY - NONE [facility] Feb 27, 2022 01:15 PM AMBULATORY - [facility] Mar 04, 2022 01:30 PM AMBULATORY - [facility] Mar 11, 2022 09:00 AM AMBULATORY - REHAB MEDICINE [facility] Apr 22, 2022 03:30 PM AMBULATORY [facility] May 06, 2022 10:30 AM AMBULATORY - REHAB MEDICINE [facility] Active, Pending, and Scheduled Orders This section includes a listing of several types of active, pending, and scheduled orders, including clinic medications orders, diagnostic test orders, procedure orders and consult orders; where the start date of the order is 45 days before the date of the Encounter or 45 days after the date of the Encounter. The data comes from all [facility]. Test Date/Time Test Type Test Details Facility Name Dec 24, 2021 08:07 AM Consult Order [facility] Cons Community Support Worker's Choice Jan 09, 2022 12:00 AM Laboratory - Chemistry HEMOGLOBIN A1C BLOO D [facility] Order SP ONCE Jan 09, 2022 12:00 AM Laboratory - Chemistry [facility] PANEL+MG PLASMA SP ONCE Jan 09, 2022 12:00 AM Laboratory - Chemistry MICROALBUMIN/CREATI CARLINE [facility] Order E RATIO URINE URINE WC ONCE Social History: Smoking Status (Most current) and Tobacco Use (All prior to encounter date) This section includes the most current, and the historical, smoking and tobacco-related health factors from the [facility] where the Encounter took place.Current Smoking Status This section includes the most current smoking, or tobacco-related health factor, from the [facility] where the Encounter took place. Date/Time Current Smoking Status Comment Facility Jun 13, 2020 10:00 AM VA-TOBACCO FORMER USER [facility] Tobacco Use History This section includes a history of the smoking, or tobacco- related health factors, that were collected on or before the date of the Encounter. The data comes from the [place] facility where the Encounter took place. Date/Time Smoking Status/Tobacco Use Comment Facil it Jun 13, 2020 10:00 AM [place]-TOBACCO QUIT [address] [facility] May 20, 2019 12:18 PM VA-TOBACCO FORMER USER MIN [facility] May 20, 2019 12:18 PM VA-TOBACCO QUIT [address] [facility] Jul 30, 2018 08:31 AM VA-TOBACCO FORMER USER MIN [facility] Jul 30, 2018 08:31 AM VA-TOBACCO QUIT [address] [facility] Aug 25, 2017 08:04 AM FORMER TOBACCO USER 7Y OR GRE[address] [facility] Nov 08, 2016 08:12 AM FORMER TOBACCO USER 7Y OR [address] [facility] Nov 29, 2015 12:46 PM FORMER TOBACCO USER 7Y OR [address] [facility] February 23, 2015 12:57 PM FORMER TOBACCO USER 7Y OR [address] [facility] January 27, 2014 10:10 AM FORMER TOBACCO USER 7Y OR [address] [facility] Mar 17, 2007 09:11 AM FORMER TOBACCO USER 7Y OR [address] [facility] Advance Directives: All historical and current Section Date Range: From patient's date of to the date document was created. This section includes ALL of a patient's completed or amended [place] Advance and Rescinded Directives. The entries below indicate that a directive exists for the patient, but an actual copy is not included with this document. The data comes from all [facility]. Date Advance Directives Provider Source Mar 17, 2007 ADVANCE DIRECTIVE ALBERTO RODRIGUEZ [facility] Encounter Notes: All associated encounter notes This section contains the clinical notes associated to the Encounter. Date/Time Encounter Note(s) Provider Source Jan 09, 2022 08:50 AM REPORT OF CONTACT: BRANDO MURRAY [facility] LOCAL TITLE: PATIENT CONTACT NOTE STANDARD TITLE: REPORT OF CONTACT DATE OF NOTE: JAN 09, 2022@08:50 ENTRY DATE: JAN 09, 2022@08:50:46 AUTHOR: BRANDO MURRAY EXP COSIGNER: URGENCY: STATUS: COMPLETED PATIENT CONTACT NOTE Has ADDENDA Patient contact Name of : BETH DURAN Name/Relationship of Contact if other than Veter an: spouse Date & Time of Contact: Dec@08:50 Type of Contact: Telephone Reason for Contact: Called to let you know that her had a stroke in November and is currently staying at [facility] in [facility]. Disposition: Message to provider /jeffry/ BRANDO FREEDMAN Signed: 01/09/2022 08:52 Receipt Acknowledged By: 01/09/2022 15:54 /jeffry/ LONA PALACIO MD PHYSICIAN 01/10/2022 ADDENDUM STATUS: COMPLETED metabolic attending--not sure if metabolic MSA i s aware of pt's 's most recent call back. attempting to schedule future appointment. will alert metabolic MSA by way of co-sign here to connect back with pt/his as per their wishes for recontact for scheduling future appointment. thanks. /jeffry/ LONA PALACIO MD PHYSICIAN Signed: 01/10/2022 15:19 Receipt Acknowledged By: * AWAITING SIGNATURE * DEBRA WALLS
--- OUTSIDE RECORDS SUMMARY | 2022-05-21 11:10 | XMS_ITS | Encounter Summary ---
:1945 Author Organization Department [facility] rs Address [address] [place] [address] Support Name Relationship Address Phone AIMEE DURAN Unavailable [address] [place] [address] AIMEE DURAN Unavailable Unavailable RENEE, CARLO Unavailable [address] [phone] [place] [address] Insurance Providers: All historical and current Section [...] U-CARE OF MEDICARE MCR Sep 29, [id number] [phone] MILES HANSON SI PATIENT [facility] ADVANTAGE (WNR) 2019 003 00 4 MON (WNR) U-CARE OF MEDICARE MCR Sep 29, [id number] [phone] JANES Nguyen SI PATIENT [facility] (M) (WNR) 2008 1100 4 MON (WNR) U-CARE OF MEDICARE MCR Sep 29, RIVAAB [id number] [phone] JANES Nguyen SI PATIENT [facility] ADVANTAGE (WNR) 2008 1100 4 MON (WNR) [facility]ARE MCR MEDICARE MCR Sep 29, [id number] [phone] MILES HANSON SI PATIENT (WNR) ADVANTAGE (WNR) 2019 003 00 5 MON [facility] MEDICARE MCR Sep 29, [id number] [phone] Ihsan DURAN I PATIENT [facility] (WNR) 2010 [id number] MON [facility] (WNR) Selected Encounter This section includes the information on record at [place] for the Encounter. Date/Time Encounter Type Encounter Reason Provider Source Description Dec 31, 2021 Outpatient PM&RS PHYSICIAN ICD-10-CM THUAN HENDERSON 01:27 PM Encounter M62.81 Muscle KAREN J weakness (generalized) with Provider Comments: Muscle Weakness (Generalized) IHE Encounter Template Text not used by [facility] Assessments - Encounter Diagnoses This section includes the primary and secondary diagnoses documented for the Encounter. Date/Time Primary/Secondary Diagnosis Name Provider Source Diagnosis Dec 31, 2021 PRIMARY Muscle weakness THUAN HENDERSON [facility] [place] 01:30 PM (generalized) KAREN J [facility] Plan of Treatment: Future Appointments (+ 6 months) and Future Tests (+/- 45 days) The Plan of Treatment section includes future care activities for the patient from all [place] treatmentfacilities. This section includes future appointments and future orders which are active, pending orscheduled.Future Appointments This section includes appointments that were scheduled to occur 6 months from the date of the Encounter, up to a maximum of 20 appointments. The data comes from all [place] treatment facilities. Appointment Date/Time Appointment Type Appointment Facili ty Name Jan 21, 2022 05:20 PM AMBULATORY - REHAB MEDICINE [facility] February 06, 2022 09:45 AM AMBULATORY - MEDICINE [facility] February 07, 2022 09:00 AM AMBULATORY - NONE [facility] February 07, 2022 10:00 AM AMBULATORY - NONE [facility] Feb 27, 2022 01:15 PM AMBULATORY - NONE [facility] Mar 04, 2022 01:30 PM AMBULATORY - NONE [facility] Mar 11, 2022 09:00 AM AMBULATORY - REHAB MEDICINE [facility] Apr 22, 2022 03:30 PM AMBULATORY - NONE [facility] May 06, 2022 10:30 AM AMBULATORY - REHAB MEDICINE [facility] Active, Pending, and Scheduled Orders This [...] The data comes from all [place] treatment [facility]. Test Date/Time Test Type Test Details Facility Name Dec 24, 2021 08:07 AM Consult Order COMMUNITY CARE-DENTAL [facility] GEN SERV Cons Cfo Controller's Choice Jan 09, 2022 12:00 AM Laboratory - Chemistry HEMOGLOBIN A1C BLOO D [facility] Order SP ONCE Jan 09, 2022 12:00 AM Laboratory - Chemistry BASIC METABOLIC MIN [facility] Order PANEL+MG PLASMA SP ONCE Jan 09, 2022 12:00 AM Laboratory - Chemistry MICROALBUMIN/CREATI CARLINE [facility] Order E RATIO URINE URINE WC ONCE Social History: Smoking Status (Most current) and Tobacco Use (All prior to encounter date) This section includes the most current, and the historical, smoking and tobacco-related health factors from the [facility] where the Encounter took place.Current Smoking Status This section includes the most current smoking, or tobacco-related health factor, from the [facility] where the Encounter took place. Date/Time Current Smoking Status Comment Facility Jun 13, 2020 10:00 AM VA-TOBACCO FORMER USER MIN [facility] Tobacco Use History This section includes a history of the smoking, or tobacco- related health factors, that were collected on or before the date of the Encounter. The data comes from the [facility] where the Encounter took place. Date/Time Smoking [...] AND HOME Jul 30, 2018 08:31 AM VA-TOBACCO QUIT [...] Mar 17, 2007 ADVANCE DIRECTIVE ALBERTO RODRIGUEZ [facility] Encounter Notes: All associated encounter notes This section contains the clinical notes associated to the Encounter. Date/Time Encounter Note(s) Provider Source Dec 31, 2021 01:27 PM COMMUNITY LONGTERM CARE CONSULT: KAYA ALVAREZ [facility] LOCAL TITLE: [facility] THERAPY AUTHORZATION CONSULT J STANDARD TITLE: COMMUNITY LONGTERM CARE CONS ULT DATE OF NOTE: DEC 31, 2021@13:27 ENTRY DATE: DEC 31, 2021@13:27:45 AUTHOR: KAYA HENDERSON EXP COSIGNER: URGENCY: STATUS: COMPLETED Community [facility] Authorization Diagnosis for treatment: Weakness PT/OT Therapy Authorization: MODERATE Criteria: Up to 324 minutes per week wi th the following disciplines: - Occupational Therapy: 5x/week for 4 weeks Summary: 76 y/o with PMHx of DM II, COPD, Bladder Cancer and HTN with 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 He is now in SNF for ongoing rehab. Previously living at home. PT to work on management of hemipl egia with self cares, ADLS, attempt at strenthening. Econsult and chart review total time: 13 minutes Comments: This [facility] home Physical/Occupational (PT/OT) Therapy authorization request was reviewed using the [facility] documentation, therapy evaluation(s)and therapy treatment plan(s) provi ded by the [facility]entiary. Supportive VA documentation was also reviewed if available. The [place] was not clinically examined by this provider as part of the review. [facility] therapy authorization revi ews are conducted for the purposes of evaluating the appropriateness for t herapy consistent with VA practices and approval for [place] payment for nursin g home therapy. Appropriate clinical care and medical clearance for therapy authorization requests are the responsibility of the [facility] provider. A current order for all therapies requested is required from the licensed independent practitioner directly overseeing this 's care at the [facility]. /jeffry/ KAYA HENDERSON DO PHYSICIAN, PM&R Signed: 12/31/2021 13:30 Receipt Acknowledged By: 12/31/2021 13:33 /jeffry/ JOHN HATCH PRINTING MACHINIST
--- OUTSIDE RECORDS SUMMARY | 2022-05-21 11:10 | XMS_ITS | Encounter Summary ---
:1945 Author Organization [facility] rs Address [address] [place] [address] Support Name Relationship Address Phone AIMEE COSTA Unavailable [address] [place] [address] AIMEE COSTA Unavailable Unavailable RENEE, CARLO Unavailable [address] [phone] [place] [address] Insurance Providers: All historical and current Section [...] U-CARE OF MEDICARE MCR Sep 29, [id number] [phone] MILES HANSON SI PATIENT [place] [facility] ADVANTAGE (WNR) 2019 003 00 4 MON (WNR) U-CARE OF MEDICARE MCR Sep 29, [id number] [phone] JANES Nguyen SI PATIENT [place] [facility] (M) (WNR) 2008 1100 4 MON (WNR) U-CARE OF MEDICARE MCR Sep 29, [id number] [id number] [phone] JANES Nguyen SI PATIENT [place] [facility] ADVANTAGE (WNR) 2008 1100 4 MON (WNR) [employer]ARE MCR MEDICARE MCR Sep 29, [id number] [phone] MILES HANSON SI PATIENT (WNR) ADVANTAGE (WNR) 2019 003 00 5 MON [employer] MEDICARE MCR Sep 29, [id number] [phone] Ihsan COSTA I PATIENT [facility] (WNR) 2010 [id number] MON [facility] (WNR) Selected Encounter This section includes the information on record at CT for the Encounter. Date/Time Encounter Type Encounter Description Reason Provider Source Dec 31, 2021 11:17 Outpatient Encounter ADMIN THEODORE MELISSA AM (ANNE MARIECT) IHE Encounter Template Text not used by CT Plan of Treatment: Future Appointments (+ 6 months) and Future Tests (+/- 45 days) The Plan of Treatment section includes future care activities for the patient [facility] This section includes future appointments and future orders which are active, pending orscheduled.Future Appointments This section includes appointments that were scheduled to occur 6 months from the date of the Encounter, up to a maximum of 20 appointments. The data comes from all CT treatment [facility]. Appointment Date/Time Appointment Type Appointment Facili ty Name Jan 21, 2022 05:20 PM AMBULATORY - REHAB MEDIC[facility] February 06, 2022 09:45 AM AMBULATORY - MEDICINE [facility] February 07, 2022 09:00 AM AMBULATORY - NONE [facility] February 07, 2022 10:00 AM AMBULATORY - NONE [facility] Feb 27, 2022 01:15 PM AMBULATORY - [facility] Mar 04, 2022 01:30 PM AMBULATORY - [facility] Mar 11, 2022 09:00 AM AMBULATORY - REHAB MEDICINE [facility] Apr 22, 2022 03:30 PM AMBULATORY [facility] May 06, 2022 10:30 AM [facility] Active, Pending, and Scheduled Orders This section includes a listing of several types of active, pending, and scheduled orders, including clinic medications orders, diagnostic test orders, procedure orders and consult orders; where the start date of the order is 45 days before the date of the Encounter or 45 days after the date of the Encounter. The data comes from all CT treatment [facility]. Test Date/Time Test Type Test Details Facility Name Dec 24, 2021 08:07 AM Consult [facility] GEN SERV Cons Transition Advisor's Choice Jan 09, 2022 12:00 AM Laboratory - Chemistry HEMOGLOBIN A1C BLOO D [facility] Order SP ONCE Jan 09, 2022 12:00 AM Laboratory - Chemistry BASIC METABOLIC [facility] Order PANEL+MG PLASMA SP ONCE Jan 09, 2022 12:00 AM Laboratory - Chemistry MICROALBUMIN/CREATI CARLINE [facility] Order E RATIO URINE URINE WC ONCE Social History: Smoking Status (Most current) and Tobacco Use (All prior to encounter date) This section includes the most current, and the historical, smoking and tobacco-related health factors from the [facility] where the Encounter took place.Current Smoking Status This section includes the most current smoking, or tobacco-related health factor, from the [place] facility where the Encounter took place. Date/Time Current Smoking Status Comment Facility Jun 13, 2020 10:00 AM VA-TOBACCO FORMER USER [facility] Tobacco Use History This section [...] 2019 12:18 PM VA-TOBACCO FORMER USER [facility] May 20, 2019 12:18 PM VA-TOBACCO QUIT 15 YRS OR MORE [facility] Jul 30, 2018 08:31 AM VA-TOBACCO FORMER USER [facility] Jul 30, 2018 08:31 AM [...] this document. The data comes from all [facility]. Date Advance Directives Provider Source Mar 17, 2007 ADVANCE DIRECTIVE ALBERTO RODRIGUEZ [facility] Encounter Notes: All associated encounter notes This section contains the clinical notes associated to the Encounter. Date/Time Encounter Note(s) Provider Source Dec 31, 2021 11:17 AM ZIPPER SETTER CHAINSTITCH REFERRAL NOTE: DERRICK CORNELL [facility] LOCAL TITLE: TRAVELING PROGRESS NOTE STANDARD TITLE: ZIPPER SETTER CHAINSTITCH REFERRAL NOTE DATE OF NOTE: DEC 31, 2021@11:17 ENTRY DATE: DEC 31, 2021@11:17:59 AUTHOR: DERRICK CORNELL EXP COSIGNER: URGENCY: STATUS: COMPLETED TRAVELING PROGRESS NOTE Has ADDENDA [facility] submitted infor mational consult for non-VA ED/Hospital care, please see Referral Food Beverage Supervisor Consult and provide f/ u as appropriate. /zhanna CORNELL REGISTERED NURSE Signed: 12/31/2021 11:19 Receipt Acknowledged By: 12/31/2021 12:18 /MARC Cherry, RN, HENRY, CLC PACT patcher helper 12/31/2021 12:30 /jeffry/ Anders Cline D.O. Staff Physician 12/31/2021 ADDENDUM STATUS: COMPLETED [facility] submitted a 2nd informational consu lt for another non-VA ED/Hospital care, please see Referral Case Manag er Consult and provide f/u as appropriate. /zhanna CORNELL REGISTERED NURSE Signed: 12/31/2021 11:54 Receipt Acknowledged By: 12/31/2021 12:18 /jeffry/ MARC Bennett, RN, HENRY, CLC PACT patcher helper 12/31/2021 12:30 /jeffry/ Anders Cline D.O. Staff Physician 12/31/2021 ADDENDUM STATUS: COMPLETED I don't see discharge summaries available. I see a note from 12/26/21 from COLLABORATIVE PHYSICIAN, with the below HPI/Plan. Pt currently being nissa pacheco in care home. If pt transitions back to home from nursing ho me, can have follow up appt with me at that time. HPI: Per ED Beth Costa is a 76 Y male, with a history of TIA, who presents to the emergency department with his f or evaluation of stroke like symptoms. The patient's reports that the patient was discharged yesterday from [facility] after havi ng a TIA and completely recovering. His states that the patient was getting out of the car this morning around 1100 when the patient had right sided weakness and slower spee ch. He was admitted yesterday for his TIA for right sided weakness. His heart rate was noted to be in the 30's per bible worker. The patient denies chest roseanna n, shortness of breath or headaches. He does not have any numbness, tingli ng of his extremities. He has not tried any interventions to make his symptoms better. Much of the history is provided by his at bedside. Assessment and Plan: 1. Multifocal, bilateral acute ischemic strokes Continue ASA and Plavix daily for 90 days, then ASA daily for life MRA negative for stroke etiology Telemetry, continue inpatient, Consider EP consu lt for ILR at discharge Echo pending D-dimer pending given recent COVID infection 3-4 weeks ago 2. Right sided weakness, dysarthria PT/OT and Speech consulted Speech to ADAT, currently tolerating soft and bi te size with extremely thick liquids 3. Chronic HTN Allow for permissive HTN given acute stroke, BP <220/120 Hospitalist consulted, appreciate assistance 4. Chronic HLD [place] Lipitor 40mg restarted 5. CKD, stage 3 Hospitalist consulted, appreciate assistance 6. Diabetes mellitus, type 2, hgb A1c 9.5% QID Glucs, SSI Home medications and management per medicine tea m 7. Bradycardia HR in 30's intermittently yesterday, con cern for 2nd degree heart block type 1 on remote monitor this AM Hospitalist consulted, appreciate assistance 8. Right ICA stenosis Incidental finding, plan for repeat CTA annually to monitor, defer to PCP Thrombolytic therapy was not initiated due to Pa wander arrived outside the treatment window /jeffry/ Anders Cline D.O. Staff Physician Signed: 12/31/2021 12:29
--- OUTSIDE RECORDS SUMMARY | 2022-05-21 11:11 | XMS_ITS | Encounter Summary ---
:1945 Author Organization [facility] rs Address [address] [place] [address] Support Name Relationship Address Phone AIMEE DURAN Unavailable [address] [place] [address] AIMEE DURAN Unavailable Unavailable RENEECARLO HANSON Unavailable [address] [phone] [place] [address] Insurance Providers: All historical and current Section [...] U-CARE OF MEDICARE MCR Sep 29, [id number] [phone] MILES HANSON SI PATIENT [facility] ADVANTAGE (WNR) 2019 003 00 4 MON (WNR) U-CARE OF MEDICARE MCR Sep 29, [id number] [phone] JANES Nguyen SI PATIENT [facility] (M) (WNR) 2008 1100 4 MON (WNR) U-CARE OF MEDICARE MCR Sep 29, [id number] [phone] JANES Nguyen SI PATIENT [facility] ADVANTAGE (WNR) 2008 1100 4 MON (WNR) [employer]ARE MCR MEDICARE MCR Sep 29, [id number] [phone] MILES HANSON SI PATIENT (WNR) ADVANTAGE (WNR) 2019 003 00 5 MON [employer] MEDICARE MCR Sep 29, [id number] [phone] Ihsan DURAN I PATIENT [facility] (WNR) 2010 [id number] MON [facility] (WNR) Selected Encounter This section includes the information on record at [place] for the Encounter. Date/Time Encounter Type Encounter Reason Provider Source Description February 05, 2022 REM INTERROG CIED DEVICES ICD-10-CM I63.9 ALBERTO PORTER 03:56 PM DEV EVAL SCRMS Cerebral infarction, A L unspecified with Provider Comments: CVA - Cerebrovascular accident ([facility] [id number]) IHE Encounter Template Text not used by VA Assessments - Encounter Diagnoses This section includes the primary and secondary diagnoses documented for the Encounter. Date/Time Primary/Secondary Diagnosis Name Provider Source Diagnosis February 05, 2022 PRIMARY Cerebral ALEJANDRA PORTER V A 04:39 PM infarction, L HCS unspecified Plan of Treatment: Future Appointments (+ 6 months) and Future Tests (+/- 45 days) The Plan of Treatment section includes future care activities for the patient from all [place] [facility]. This section includes future appointments and future orders which are active, pending orscheduled.Future Appointments This section includes appointments that were scheduled to occur 6 months from the date of the Encounter, up to a maximum of 20 appointments. The data comes from all [place] treatment facilities. Appointment Date/Time Appointment Type Appointment Facili ty Name February 06, 2022 09:45 AM AMBULATORY - MEDICINE [facility] February 07, 2022 09:00 AM AMBULATORY - [facility] February 07, 2022 10:00 AM AMBULATORY [facility] Feb 27, 2022 01:15 PM AMBULATORY - [facility] Mar 04, 2022 01:30 PM AMBULATORY - [facility] Mar 11, 2022 09:00 AM AMBULATORY - REHAB [facility]ICINE [facility] Apr 22, 2022 03:30 PM AMBULATORY - [facility] May 06, 2022 10:30 AM AMBULATORY - REHAB MEDICINE [facility] Active, Pending, and Scheduled Orders This [...] The data comes from all [place] treatment [facility]. Test Date/Time Test Type Test Details Facility Name Dec 24, 2021 08:07 AM Consult Order COMMUNITY CARE[facility]AL [facility] GEN SERV Cons Cashier And Salesperson's Choice Jan 09, 2022 12:00 AM Laboratory - Chemistry HEMOGLOBIN A1C BLOO D [facility] Order SP ONCE Jan 09, 2022 12:00 AM Laboratory - Chemistry BASIC METABOLIC [facility] Order PANEL+MG PLASMA SP ONCE [...] 2020 10:00 AM VA-TOBACCO FORMER USER [facility] Tobacco Use History This section [...] 2019 12:18 PM VA-TOBACCO FORMER USER [facility] May 20, 2019 12:18 PM VA-TOBACCO QUIT 15 YRS OR MORE [facility] Jul 30, 2018 08:31 AM VA-TOBACCO FORMER USER [facility] Jul 30, 2018 08:31 AM [...] ALL of a patient's completed or amended [place] Advance and Rescinded Directives. The entries below [...] the Encounter. Date/Time Encounter Note(s) Provider Source February 05, 2022 03:56 PM CARDIOLOGY DIAGNOSTIC STUDY NOTE: ALEJANDRA PORTER [facility] LOCAL TITLE: CARDIOLOGY ELECTROPHYSIOLOGY NOTE STANDARD TITLE: CARDIOLOGY DIAGNOSTIC STUDY NOTE DATE OF NOTE: FEBRUARY 05, 2022@15:56 ENTRY DATE: FEBRUARY 05, 2022@15:56:47 AUTHOR: ALEJANDRA PORTER EXP COSIGNER: URGENCY: STATUS: COMPLETED CARDIOLOGY ELECTROPHYSIOLOGY NOTE Has ADDEN DA Patient's Medtronic loop recorder checked via [place] [facility] [place] [facility] comments: Remote received prior to EP PA phone visit. Presenting EGM shows frequent PVC's with ventric ular undersensing after each PVC. Otherwise rhythm appears to be SR 70bpm w/P VC's. Lifetime device totals: 38 AF episodes. PVC % 29.9% Most recent on #103 02/01/22 at 0101 for a total o f 10min with a rate of 67bpm. Pattern is irregular at times. P waves are not c ompletely clear throughout however, suspect Mobitz I due to longer, longer, drop pattern. Episode #78 is similar and was marked inappropriate by previous clinic. Discussed with Dr Roa. Device has binned all AF episodes as 0 %. Occassional high ventricular rates seen on histo grams, however fairly well controlled. Will alert EP PA for FYI. Report available via BISON. Indication: Cryptogenic Stroke Active Outpatient Medications (including Supplie s): Active Outpatient Medications Status 1) ACCU-CHEK GUIDE (GLUCOSE) TEST STRIP USE 1 ST RIP 4-5 ACTIVE TIME-A-DAY TO CHECK BLOOD SUGAR -USE WITHIN 3 MINUTES OF REMOVING FROM CONTAINER 2) ATORVASTATIN CALCIUM 80MG TAB TAKE ONE TABLET BY ACTIVE MOUTH AT BEDTIME FOR CHOLESTEROL 3) CLOPIDOGREL BISULFATE 75MG TAB TAKE ONE TABLE T BY ACTIVE MOUTH EVERY DAY INDEFINITELY TO PREVENT BLOOD C LOTS & STROKE 4) EMPAGLIFLOZIN 25MG TAB TAKE ONE TABLET BY PAT TH EVERY ACTIVE DAY 5) ESCITALOPRAM OXALATE 10MG TAB TAKE ONE TABLET BY ACTIVE MOUTH EVERY DAY FOR MOOD 6) GLUCOSE 4GM CHEW TAB CHEW FOUR TABLETS BY PAT TH ACTIVE NEEDED FOR LOW BLOOD SUGAR 7) INDOMETHACIN 25MG CAP TAKE ONE TO TWO CAPSULE S BY ACTIVE MOUTH THREE TIMES A DAY NEEDED GOUT EXACERBA TION 8) INSULIN,ASPART 100UN/ML JACKI FLEXPEN 3ML INJE CT 10 ACTIVE UNITS UNDER THE SKIN THREE TIMES A DAY BEFORE M EALS INJECT IMMEDIATELY BEFORE MEAL AND AT BEDTIME INJECT 1 UNIT IF BG BETWEEN 250-300 INJECT 2 UN ITS IF BG BETWEEN 301-350 INJECT 3 UNITS IF BG BETW EEN 351-400 INJECT 4 UNITS IF BG BETWEEN 400-450, D ONT TAKE MORE THAN 4 UNITS AT BEDTIME FOR DIABETES 9) INSULIN,GLARGINE 100 UNT/ML 3ML SOLOSTAR INJE CT 28 ACTIVE UNITS UNDER THE SKIN AT BEDTIME *DO NOT MIX WIT H OTHER INSULINS 10) LEVOTHYROXINE NA (SYNTHROID) 100MCG TAB TAKE ONE ACTIVE TABLET BY MOUTH EVERY DAY FOR THYROID 11) LOSARTAN 50MG TAB TAKE ONE TABLET BY MOUTH E VERY DAY ACTIVE 12) METOPROLOL SUCCINATE 50MG SA TAB TAKE ONE-CHAVEZ LF TABLET ACTIVE BY MOUTH EVERY DAY FOR HEART FAILURE AND BLOOD PRESSURE 13) NEEDLE,PEN 31G,5MM USE 1 NEEDLE UNDER THE SK IN ACTIVE DIRECTED *DISPOSE OF IN A HARD-PLASTIC CONTAINE R WITH A SCREW-ON LID CONTACT GARBAGE [facility] R PROPER DISPOSAL 14) SEMAGLUTIDE 0.5MG/0.375ML INJ PEN 1.5ML INJE CT 0.25MG ACTIVE UNDER THE SKIN EVERY WEEK FOR 4 WEEKS, THEN INJ ECT 0.5MG EVERY WEEK FOR WEIGHT AND TYPE 2 DIABETES 15) TORSEMIDE 20MG TAB TAKE ONE TABLET BY MOUTH EVERY ACTIVE MORNING FOR SWELLING 16) TRAZODONE HCL 50MG TAB TAKE ONE TABLET BY MO UTH AT ACTIVE BEDTIME NEEDED FOR SLEEP /es/ ALEJANDRA PORTER RN REGISTERED NURSE Signed: 02/05/2022 16:39 Receipt Acknowledged By: 02/06/2022 08:07 /jeffry/ RAUL MITCHELL PA-C PHYSICIAN WASTEWATER SUPERVISOR 02/06/2022 ADDENDUM STATUS: COMPLETED AF episodes # 47, 71, 76-78 ECGs available via v [facility] /jeffry/ VENKATA ESCUDERO EP Clinical Specialist Signed: 02/06/2022 10:48 02/06/2022 ADDENDUM STATUS: COMPLETED Local Medtronic Loop rep working on why past rem ote interrogations are not available via our [facility] account. /jeffry/ VENKATA ESCUDERO EP Clinical Specialist Signed: 02/06/2022 14:00 02/08/2022 ADDENDUM STATUS: COMPLETED response from [employer] Kiara I have more info now that tech services re viewed. You likely are seeing episodes that you can't see the ECG for, they ar e labeled as text. These are episodes that the new artifici al intelligence in Carelink determined to be false episodes and should be ignored. So knowing that, yes, the ep isodes you see in [facility]Link now are the only episodes available for viewing (or would need to be revie wed). Hope this helps! Thanks! /VENKATA Baugh EP Clinical Specialist Signed: 02/08/2022 07:57
--- OUTSIDE RECORDS SUMMARY | 2022-05-21 11:11 | XMS_ITS | Encounter Summary ---
:1945 Author Organization [facility] Address [address] [place] [id number] Support Name Relationship Address Phone AIMEE DURAN Unavailable [address] [place] [address] AIMEE DURAN Unavailable Unavailable RENEEJENI HANSONCarlos Unavailable [address] [phone] [place] [address] Insurance Providers: All historical and current Section [...] U-CARE OF MEDICARE MCR Sep 29, [id number] [phone] MILES HANSON SI PATIENT [facility] ADVANTAGE (WNR) 2019 003 00 4 MON (WNR) U-CARE OF MEDICARE MCR Sep 29, [id number] [phone] JANES Nguyen SI PATIENT [place] [facility] (M) (WNR) 2008 1100 4 MON (WNR) U-CARE OF MEDICARE MCR Sep 29, [id number] [id number] [phone] JANES Nguyen SI PATIENT [facility] ADVANTAGE (WNR) 2008 1100 4 MON (WNR) [employer]ARE MCR MEDICARE MCR Sep 29, [id number] [phone] MILES HANSON SI PATIENT (WNR) ADVANTAGE (WNR) 2019 003 00 5 MON [employer] MEDICARE MCR Sep 29, [id number] [phone] Ihsan DURAN I PATIENT [place] ADVANTAGE (WNR) 2010 [id number] MON [facility] (WNR) Selected Encounter This section includes the information on record at [place] for the Encounter. Date/Time Encounter Type Encounter Description Reason Provider Source IHE Encounter Template Text not used by VA Advance Directives: All historical and current Section [...] Mar 17, 2007 ADVANCE DIRECTIVE ALBERTO RODRIGUEZ [facility]
--- OUTSIDE RECORDS SUMMARY | 2022-05-21 11:11 | XMS_ITS | Encounter Summary ---
:1945 Author Organization [facility] rs Address [address] [place] [address] Support Name Relationship Address Phone AIMEE DURAN Unavailable [address] [place] [address] AIMEE DURAN Unavailable Unavailable RENEE, CARLO Unavailable [address] [phone] [place] [address] Insurance Providers: All historical and current Section [...] U-CARE OF MEDICARE MCR Sep 29, [id number] [phone] MILES HANSON SI PATIENT [facility] ADVANTAGE (WNR) 2019 003 00 4 MON (WNR) U-CARE OF MEDICARE MCR Sep 29, [id number] [phone] JANES Nguyen SI PATIENT [facility] (M) (WNR) 2008 1100 4 MON (WNR) U-CARE OF MEDICARE MCR Sep 29, [id number] [phone] JANES Nguyen SI PATIENT [facility] ADVANTAGE (WNR) 2008 1100 4 MON (WNR) [facility] MCR MEDICARE MCR Sep 29, [id number] [phone] MILES HANSON SI PATIENT (WNR) ADVANTAGE (WNR) 2019 003 00 5 MON [facility] MEDICARE MCR Sep 29, [id number] [phone] Ihsan DURAN I PATIENT [facility] (WNR) 2010 [id number] MON [facility] (WNR) Selected Encounter This section includes the information on record at CT for the Encounter. Date/Time Encounter Type Encounter Description Reason Provider Source Jan 23, 2022 09:15 Outpatient Encounter [facility] FOLLOW-UP AM IHE Encounter Template Text not used by CT Plan of Treatment: Future Appointments (+ 6 months) and Future Tests (+/- 45 days) The Plan of Treatment section includes future care activities for the patient [facility] This section includes future appointments and future orders which are active, pending orscheduled.Future Appointments This section includes appointments that were scheduled to occur 6 months from the date of the Encounter, up to a maximum of 20 appointments. The data comes from all [facility]. Appointment Date/Time Appointment Type Appointment Facili ty Name February 06, 2022 09:45 AM AMBULATORY - MEDICINE [facility] February 07, 2022 09:00 AM AMBULATORY - [facility] February 07, 2022 10:00 AM AMBULATORY [facility] Feb 27, 2022 01:15 PM AMBULATORY [facility] Mar 04, 2022 01:30 PM AMBULATORY - [facility] Mar 11, 2022 09:00 AM AMBULATORY - REHAB [facility]IC[facility] Apr 22, 2022 03:30 PM AMBULATORY [facility] May 06, 2022 10:30 AM AMBULATORY - REHAB [facility] Active, Pending, and Scheduled Orders This section includes a listing of several types of active, pending, and scheduled orders, including clinic medications orders, diagnostic test orders, procedure orders and consult orders; where the start date of the order is 45 days before the date of the Encounter or 45 days after the date of the Encounter. The data comes from all [facility]. Test Date/Time Test Type Test Details Facility Name Dec 24, 2021 08:07 AM Consult Order COMMUNITY CARE-DENTAL MIN[facility] GEN SERV Cons [place] Judge[facility] Choice Jan 09, 2022 12:00 AM Laboratory - Chemistry HEMOGLOBIN A1C BLOO D [facility] Order SP ONCE Jan 09, 2022 12:00 AM Laboratory - Chemistry BASIC METABOLIC [facility] Order PANEL+MG PLASMA SP ONCE Jan 09, 2022 12:00 AM Laboratory - Chemistry MICROALBUMIN/CREATI CARLINE [facility] Order E RATIO URINE URINE WC ONCE Social History: Smoking Status (Most current) and Tobacco Use (All prior to encounter date) This section includes the most current, and the historical, smoking and tobacco-related health factors from the [facility] where the Encounter took place.Current Smoking Status This section includes the most current smoking, or tobacco-related health factor, from the [facility] where the Encounter took place. Date/Time Current Smoking Status Comment Facility Jun 13, 2020 10:00 AM VA-TOBACCO FORMER USER [facility] Tobacco Use History This section includes a history of the smoking, or tobacco- related health factors, that were collected on or before the date of the Encounter. The data comes from the [facility] where the Encounter took place. Date/Time Smoking Status/Tobacco Use Comment [facility] Jun 13, 2020 10:00 AM VA-TOBACCO QUIT 15 YRS OR MORE [facility] May 20, 2019 12:18 PM VA-TOBACCO FORMER USER MIN [facility] May 20, 2019 12:18 PM VA-TOBACCO QUIT 15 YRS OR MORE [facility] Jul 30, 2018 08:31 AM VA-TOBACCO FORMER USER [facility] Jul 30, 2018 08:31 AM VA-TOBACCO QUIT 15 YRS OR MORE [facility] Aug 25, 2017 08:04 AM FORMER TOBACCO USER 7Y OR GREATER [facility] Nov 08, 2016 08:12 AM FORMER TOBACCO USER 7Y OR GREATER [facility] Nov 29, 2015 12:46 PM FORMER TOBACCO USER 7Y OR GREATER [facility] February 23, 2015 12:57 PM FORMER TOBACCO USER 7Y OR GREATER [facility] January 27, 2014 10:10 AM FORMER TOBACCO USER 7Y OR GREATER [facility] Mar 17, 2007 09:11 AM FORMER TOBACCO USER 7Y OR GREATER [facility] Advance Directives: All historical and current Section Date Range: From patient's date of to the date document was created. This section includes ALL of a patient's completed or amended CT Advance and Rescinded Directives. The entries below indicate that a directive exists for the patient, but an actual copy is not included with this document. The data comes from all [facility]. Date Advance Directives Provider Source Mar 17, 2007 ADVANCE DIRECTIVE NATASHA RODRIGUEZ [facility] Encounter Notes: All associated encounter notes This section contains the clinical notes associated to the Encounter. Date/Time Encounter Note(s) Provider Source Jan 23, 2022 09:15 AM COMMUNITY LONG-TERM CARE NOTE: RJ REBOLLAR [facility] LOCAL TITLE: [facility] EXTENSION STANDARD TITLE: COMMUNITY LONG-TERM CARE NOTE DATE OF NOTE: JAN 23, 2022@09:15 ENTRY DATE: JAN 23, 2022@09:15:42 AUTHOR: CHAPIS REBOLLAR EXP COSIGNER: URGENCY: STATUS: COMPLETED [facility] EXTENSION Has ADDENDA [facility] Mille nnium Bill Review Date of review: Dec VA contract start date: Dec [facility] Business office: Kenya Veloz Other [facility] point of contact: Administrative eligibility: Service connected 70 % or higher Clinical documentation reviewed for eligibility: [facility], Minimum Data Set, 5 days of progress notes, 5 days of rehab notes Former living situation: resided at home with in [place], [place]. was independent with all cares prior to hospitalization. Previous services and resour brian: [place] was not receiving and services at home. Was independent with all ADLs prior to h ospitalization. Open to receiving home care services. and family goals: Ve héctor and 's goal is for to return home. is working with therapies to improve tra nsfers, decrease burden of care, improve balance, gait training, activit y tolerance. Clinical summary/diagnosis: is a 76 y/o 100% SC male who was admitted to [facility] for ongoing rehab fo [facility], an acute care hospital hospitalization for 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 Oher Dx include but not limited to: DM II, COPD, Bladder Cancer and HTN, [place] underwent evaluation by physical, occupational and speech therapists and is currently receiving ongoing therapy treatment s. [place] scored 13/15 BIMS, indicating he is cognitively intact. [place] requires assist of 1 with meals and supervision during meals. Ve héctor is total assist of 2 with mechanical lift for transfers. [place] is extensive assist o f 1 for dressing, hygiene, darryl cares. is extensive assist of 2 with bed mobili ty. Uses a tilt Broda chair, unable to propel a standard wheelchair due to hi s (R) sided weakness It is unclear if 's g oal to return home is realistic at this time r/t the extensive assistance he requ ires for ADLs and the burden of care that would fall on 's . needs continued snf care based on the following indicators: intermediate, Skilled rehab, ADL dependency Recommended contract extension: 365 days with in tent for long-term care /jeffry/ LORETTA BAZAN CAT SCAN TECHNOLOGIST LORETTA Signed: 01/23/2022 09:35 Receipt Acknowledged By: 01/23/2022 09:46 /es/ JOHN HATCH OIL EXPELLER OPERATOR 01/24/2022 08:38 /es/ KAYA HENDERSON DO PHYSICIAN, PM&R 01/23/2022 09:44 /es/ RAMU FOX CAT SCAN TECHNOLOGIST 01/24/2022 09:23 /es/ Natasha Anthony RN, BSN, CRR N [facility] Nurse Mobile Application Developer/Pointer Machine Operator 01/24/2022 08:07 /es/ John Page MD MD (Internal Medicine / Geriatrics) 01/24/2022 08:09 /es/ NORBERT PALMA Management and Pool Table Operator 01/23/2022 13:29 /es/ KATLYN MCDOWELL RN Community Health Nurse Coordinator 01/24/2022 ADDENDUM STATUS: COMPLETED [employer] Contract Extension Interdisciplinary evaluation held on date of w. Community Health Nurse Coordinator, Clinical Director Of Graduate Medical Education, PM&R Physician, EC&R Geriatrics Physician, and [facility] Program Co-Directors were in attendance. VA Contract extension approved for 1 year/long-t [facility] Contract authorization dates: 12/28/21-12/27/22 Comments: Copy of this note was faxed to [facility] office. /jeffry/ LORETTA BAZAN CAT SCAN TECHNOLOGIST LORETTA Signed: 01/24/2022 10:24 Receipt Acknowledged By: * AWAITING SIGNATURE * JOHN HATCH * AWAITING SIGNATURE * NORBERT PALMA * AWAITING SIGNATURE * KATLYN MCDOWELL
--- OUTSIDE RECORDS SUMMARY | 2022-05-21 11:11 | XMS_ITS | Encounter Summary ---
:1945 Author Organization [facility] rs Address [address] [place] [address] Support Name Relationship Address Phone AIMEE DURAN Unavailable [address] [place] [address] AIMEE DURAN Unavailable Unavailable RENEECARLO HANSON Unavailable [address] [phone] [place] [address] Insurance Providers: All historical and current Section [...] U-CARE OF MEDICARE MCR Sep 29, [id number]_ [id number] [phone] MILES HANSON SI PATIENT [facility] ADVANTAGE (WNR) 2019 003 00 4 MON (WNR) U-CARE OF MEDICARE MCR Sep 29, [id number] [phone] JANES Nguyen SI PATIENT [facility] (M) (WNR) 2008 1100 4 MON (WNR) U-CARE OF MEDICARE MCR Sep 29, RIVAAB [id number] [phone] JANES Nguyen SI PATIENT [facility] ADVANTAGE (WNR) 2008 1100 4 MON (WNR) [facility] MCR MEDICARE MCR Sep 29, [id number]_ [id number] [phone] MILES HANSON SI PATIENT (WNR) ADVANTAGE (WNR) 2019 003 00 5 MON [facility] MEDICARE MCR Sep 29, [id number] [phone] RENEE,S I PATIENT [facility] (WNR) 2010 [id number] MON [facility] (WNR) Selected Encounter This section includes the information on record at [place] for the Encounter. Date/Time Encounter Type Encounter Description Reason Provider Source February 06, 2022 09:45 Outpatient Encounter TELEPHONE/MEDICINE AM IHE Encounter Template Text not used by [place] Plan of Treatment: Future Appointments (+ 6 months) and Future Tests (+/- 45 days) The Plan of Treatment section includes future care activities for the patient [facility] This section includes future appointments and future orders which are active, pending orscheduled.Future Appointments This section includes appointments that were scheduled to occur 6 months from the date of the Encounter, up to a maximum of 20 appointments. The data comes from all [facility]. Appointment Date/Time Appointment Type Appointment Facili ty Name February 07, 2022 09:00 AM AMBULATORY [facility] February 07, 2022 10:00 AM AMBULATORY [facility] Feb 27, 2022 01:15 PM AMBULATORY [facility] Mar 04, 2022 01:30 PM AMBULATORY [facility] Mar 11, 2022 09:00 AM AMBULATORY - RE[facility]AB [facility] Apr 22, 2022 03:30 PM AMBULATORY [facility] May 06, 2022 10:30 AM AMBULATORY - REHAB [facility] Active, Pending, and Scheduled Orders This section includes a listing of several types of active, pending, and scheduled orders, including clinic medications orders, diagnostic test orders, procedure orders and consult orders; where the start date of the order is 45 days before the date of the Encounter or 45 days after the date of the Encounter. The data comes from all [facility]. Test Date/Time Test Type Test Details Facility Name Dec 24, 2021 08:07 AM Consult Order [facility] GEN SERV Cons [facility] Dispatcher's Choice Jan 09, 2022 12:00 AM Laboratory - Chemistry HEMOGLOBIN A1C BLOO D [facility] Order SP ONCE Jan 09, 2022 12:00 AM Laboratory - Chemistry BASIC METABOLIC MIN [facility] Order PANEL+MG PLASMA SP ONCE Jan 09, 2022 12:00 AM Laboratory - Chemistry MICROALBUMIN/CREATI CARLINE [facility] Order E RATIO URINE URINE WC ONCE Social History: Smoking Status (Most current) and Tobacco Use (All prior to encounter date) This section includes the most current, and the historical, smoking and tobacco-related health factors from the [facility] where the Encounter took place.Current Smoking Status This section includes the most current smoking, or tobacco-related health factor, from the [facility] where the Encounter took place. Date/Time Current Smoking Status Comment Facility Jun 13, 2020 10:00 AM VA-TOBACCO FORMER USER [facility] Tobacco Use History This section includes a history of the smoking, or tobacco- related health factors, that were collected on or before the date of the Encounter. The data comes from the [facility] where the Encounter took place. Date/Time Smoking Status/Tobacco Use Comment [facility] Jun 13, 2020 10:00 AM VA-TOBACCO [...] Encounter. Date/Time Encounter Note(s) Provider Source February 06, 2022 09:41 AM CARDIOLOGY DIAGNOSTIC STUDY CONSULT: RAUL CHANEY [facility] LOCAL TITLE: CARDIAC ELECTROPHYSIOLOGY CONSULT STANDARD TITLE: CARDIOLOGY DIAGNOSTIC STUDY CONS ULT DATE OF NOTE: FEBRUARY 06, 2022@09:41 ENTRY DATE: FEBRUARY 06, 2022@09:41:21 AUTHOR: RAUL MITCHELL COSIGNER: URGENCY: STATUS: COMPLETED CARDIAC ELECTROPHYSIOLOGY TELEPHONE CONSULT NOTE This is a phone consult. Information obtained via chart review +/- phone conversation with patient. Requesting Provider: QUINN HOANG Reason for Request: is currently in a Community [facility] under a [place] Contract. The senior care provider is abdiaziz equesting that ICD/pacemaker montoring be transferred to [facility]. Device was placed at [facility]. He currently has a Medtronic device at the senior care facility that is plugged into the wall. [facility] for additional information if needed. HPI: The patient is a 76 year old male with a [facility] medical history including hypertension, T2DM, HLD, CKD3, h/o TIA , s/p CVA November 2021. He presented to OSH 12/25/21 with acute onset right- sided weakness and speech difficulties. He was found on brain MRI to have multifocal bilateral acute ischemic strokes. He had been discharged the day prior from [facility] with diagnosis of TIA. MRA s howed 60% ZOË stenosis, 50% left verterbral artery stenosis. He was maintained on ASA and plavix. t PA not given. No atrial arrhythmias were noted durin g hospitalization on telemetry per documentation and given concern for cardioembolic cause a loop rec order was implanted prior to discharge. There was some mention of bradycardia in the 30s upon initial evaluation in the ED, but no further doc umentation of significant bradycardia. nursing home ILR monitoring has been requested to charmaine mayer to the [place]. I contacted patient over the phone today for CROW consult. Patient is still in care facility working on rec overy from his stroke. He has persistent right-sided weakness, but is working on standing with PT. He denies current palpitations, dyspnea on exertion, chest pain/pressure, lighth eadedness, dizziness, presyncope, syncope, orthopnea, PND, or LE edema . ROS: 12 point review of systems negative for acu te issues except as noted in HPI. PAST MEDICAL HISTORY: Active problems - Computerized Problem List is t he source for the followin. Hypertension (SNOMED CT 29713083) 2. Hyperlipidemia (SNOMED CT 63181394) 3. Tinnitus * 4. 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 Asthma (SNOMED CT 281024363) 6. Diabetic retinopathy (SNOMED CT 8796362) 7. Type 2 diabetes mellitus (SNOMED CT 24773289 ) 8. Umbilical hernia (SNOMED CT 028306493) 9. Obstructive sleep apnea (SNOMED CT 98605476) 10. Obesity * - 10 TOPIC GRAD 07-09-2012* 244.0 --> 09-17-12* 243.2 lbs 11. Anemia 12. Rosacea 13. Carcinoma of bladder 14. Depression ([facility] 69464505) - prescribed by [facility] for depression 15. Congestive heart failure 16. CVA - Cerebrovascular accident - 11/2020, outside hospital. PAST SOCIAL HISTORY: *Tobacco: denies *ETOH: denies *Illicits: denies FAMILY HISTORY: non-contributory -----PRIOR CARDIAC TESTING----- -Echo (12/25/21) - [facility]: LVEF 55-60%. Normal RV function and size. No sig nificant valvular disease. -Brain MRI (12/26/21): Multif ocal bilateral areas of acute ischemia, left greater than right. The largest area is left parahippoca mpal gyrus. Tiny old b/l cerebellar infarcts. -Latest EKG: None in our system since 2011 ALLERGIES PENICILLIN (Mar 17, 2007) SULFA DRUGS (Mar 17, 2007) DOXYCYCLINE (Jul 11, 2010) LISINOPRIL (Jul 22, 2011) AMLODIPINE (Nov 19, 2017) FACILITY ALLERGY/ADR -------- [facility] DOXYCYCLINE [facility] LISINOPRIL [facility] PENICILLIN [facility] SULFA DRUGS [facility] AMLODIPINE [facility] DOXYCYCLINE [facility] LISINOPRIL [facility] PENICILLIN [facility] SULFA DRUGS MEDICATIONS Active and Recently Outpatient Medicatio ns (excluding Supplies): Active Outpatient Medications Status 1) ACCU-CHEK GUIDE [...] FOR HEART FAILURE AND BLOOD PRESSURE 13) SEMAGLUTIDE 0.5MG/0.375ML INJ PEN 1.5ML INJE CT 0.25MG ACTIVE UNDER THE SKIN EVERY WEEK FOR 4 WEEKS, THEN INJ ECT 0.5MG EVERY WEEK FOR WEIGHT AND TYPE 2 DIABETES 14) TORSEMIDE 20MG TAB TAKE ONE TABLET BY MOUTH EVERY ACTIVE MORNING FOR SWELLING 15) TRAZODONE HCL 50MG TAB TAKE ONE TABLET BY MO UTH AT ACTIVE BEDTIME NEEDED FOR SLEEP No Active Remote Medications for this patient LABS Collection DT Specimen Test Name Result Units Re f Range 06/14/2021 10:45 PLASMA TSH 3.83 uIU/mL 0.35 - 4 .94 08/11/2015 06:30 PLASMA!! TSH 3.60 uIU/mL 0.30 - 5.00 Collection DT Specimen Test Name Result Units Re f Range 10/03/2010 09:00 PLASMA!! BILIRUBIN, TOTAL 0.4 m g/dL 0.2 - 1.2 10/03/2010 09:00 PLASMA!! ALKALINE PHOSPHAT 59 I U/L 46 - 108 07/30/2018 06:37 PLASMA AST/SGOT 17 U/L 15 - 37 07/30/2018 06:37 PLASMA ALT/SGPT 17 U/L 13 - 61 !! Indicates COMMENTS AVAILABLE...Refer to Inter im Lab Report. ASSESSMENT & PLAN: 1. 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 -He is currently on ASA + clopidogrel and follow ing with neurology 2. Frequent PVCs: Asymptomatic, LV function pres erved. Plan: -Continue routine monitoring -We are working with [employer] on trying to obtain all prior monitoring reports to overread and ensure no true AFib has occurred Time spent: 45 minutes /jeffry/ RAUL MITCHELL PA-C PHYSICIAN SIGNWRITER Signed: 02/07/2022 13:02 Receipt Acknowledged By: * AWAITING SIGNATURE * HERLINDA DUNHAM
--- OUTSIDE RECORDS SUMMARY | 2022-05-21 11:11 | XMS_ITS | Encounter Summary ---
:1945 Author Organization [facility] rs Address [address] [place] [address] Support Name Relationship Address Phone AIMEE DURAN Unavailable [address] [place] [address] AIMEE DURAN Unavailable Unavailable RENEECARLO HANSON Unavailable [address] [phone] [place] [address] Insurance Providers: All historical and current Section [...] U-CARE OF MEDICARE MCR Sep 29, [id number] [phone] MILES HANSON SI PATIENT [facility] ADVANTAGE (WNR) 2019 003 00 4 MON (WNR) U-CARE OF MEDICARE MCR Sep 29, [id number] [phone] JANES Nguyen SI PATIENT [facility] (M) (WNR) 2008 1100 4 MON (WNR) U-CARE OF MEDICARE MCR Sep 29, RIVAAB [id number] [phone] JANES Nguyen SI PATIENT [facility] ADVANTAGE (WNR) 2008 1100 4 MON (WNR) UCARE MCR MEDICARE MCR Sep 29, [id number]_ [id number] [phone] MILES HANSON SI PATIENT (WNR) ADVANTAGE (WNR) 2019 003 00 5 MON [facility]ARE MEDICARE MCR Sep 29, [id number] [phone] RENEE,S I PATIENT [facility] (WNR) 2010 [id number] MON [facility] (WNR) Selected Encounter This section includes the information on record at [place] for the Encounter. Date/Time Encounter Type Encounter Description Reason Provider Source January 30, 2022 09:13 Outpatient Encounter TELEPHONE/ANCILLARY AM IHE Encounter Template Text not used by [place] Plan of Treatment: Future Appointments (+ 6 months) and Future Tests (+/- 45 days) The Plan of Treatment section includes future care activities for the patient from all [place] [facility]. This section includes future appointments and future orders which are active, pending orscheduled.Future Appointments This section includes appointments that were scheduled to occur 6 months from the date of the Encounter, up to a maximum of 20 appointments. The data comes from all [place] treatment [facility]. Appointment Date/Time Appointment Type Appointment Facili ty Name February 06, 2022 09:45 AM AMBULATORY - MEDICINE [facility] February 07, 2022 09:00 AM AMBULATORY - NONE [facility] February 07, 2022 10:00 AM AM[facility]ULATORY - [facility] Feb 27, 2022 01:15 PM AMBULATORY - [facility] Mar 04, 2022 01:30 PM AMBULATORY [facility] Mar 11, 2022 09:00 AM AMBULATORY - REHAB MEDICINE [facility] Apr 22, 2022 03:30 PM AMBULATORY [facility] May 06, 2022 10:30 AM AMBULATORY - REHAB MEDICINE [facility] Active, Pending, and Scheduled Orders This section includes a listing of several types of active, pending, and scheduled orders, including clinic medications orders, diagnostic test orders, procedure orders and consult orders; where the start date of the order is 45 days before the date of the Encounter or 45 days after the date of the Encounter. The data comes from all [facility]. Test Date/Time Test Type Test Details Facility Name Dec 24, 2021 08:07 AM Consult Order [facility] GEN SERV Cons Automation Developer's Choice Jan 09, 2022 12:00 AM Laboratory - Chemistry HEMOGLOBIN A1C BLOO D [facility] Order SP ONCE Jan 09, 2022 12:00 AM Laboratory - Chemistry BASIC METABOLIC [facility] Order PANEL+MG PLASMA SP ONCE Jan 09, 2022 12:00 AM Laboratory - Chemistry MICROALBUMIN/CREATI CARLINE [facility] Order E RATIO URINE URINE WC ONCE Social History: Smoking Status (Most current) and Tobacco Use (All prior to encounter date) This section includes the most current, and the historical, smoking and tobacco-related health factors from the [place] facility where the Encounter took place.Current Smoking Status This section includes the most current smoking, or tobacco-related health factor, from the [facility] where the Encounter took place. Date/Time Current Smoking Status Comment Facility Jun 13, 2020 10:00 AM VA-TOBACCO FORMER USER [facility] Tobacco Use History This section includes a history of the smoking, or tobacco- related health factors, that were collected on or before the date of the Encounter. The data comes from the [facility] where the Encounter took place. Date/Time Smoking Status/Tobacco Use Comment [facility] it Jun 13, 2020 10:00 AM VA-TOBACCO QUIT 15 YRS OR MORE [facility] May 20, 2019 12:18 PM VA-TOBACCO FORMER USER [facility] May 20, 2019 12:18 PM VA-TOBACCO QUIT 15 YRS OR MORE [facility] Jul 30, 2018 08:31 AM VA-TOBACCO FORMER USER [facility] Jul 30, 2018 08:31 AM VA-TOBACCO [...] ALL of a patient's completed or amended [place] Advance and Rescinded Directives. The entries below [...] the Encounter. Date/Time Encounter Note(s) Provider Source January 30, 2022 09:13 AM COMMUNITY JAIL CARE NOTE: RJ REBOLLAR [facility] LOCAL TITLE: [facility] MENTAL [facility] AUTHORIZATIO N/EXTENSION STANDARD TITLE: COMMUNITY JAIL CARE NOTE DATE OF NOTE: JANUARY 30, 2022@09:13 ENTRY DATE: JANUARY 30, 2022@09:14:06 AUTHOR: CHAPIS REBOLLAR EXP COSIGNER: URGENCY: STATUS: COMPLETED Skilled Nursing: [facility] Contract Skilled Nursing Facility contact: JULIO CÉSAR Khalil SIMON N Jun [facility] [address], [place] [address] Temporary Address Start: Dec Temporary Address Stop: Description of request: Request for ACP services r/t lack of motivation and bheaviors such as yelling out, which has caused disruption for ot her residents and makes cares more difficult. Increased anxiety and dep ressive symptoms as well as confusion. Some cognitive concerns. Does [place] have a [place] Mental Health provider? N o Is the [place] able to travel? No Action: Authorize initial assessment with clinical note /treatment plan required after visit. Approve initial visit, requesting clinical notes after first visit in order to approve ongoing visits. /jeffry/ LORETTA BAZAN DITTO MACHINE OPERATOR LORETTA Signed: 01/30/2022 09:18 Receipt Acknowledged By: * AWAITING SIGNATURE * NORBERT PALMA
--- OUTSIDE RECORDS SUMMARY | 2022-05-21 11:11 | XMS_ITS | Encounter Summary ---
:1945 Author Organization [facility] rs Address [address] [place] [address] Support Name Relationship Address Phone AIMEE DURAN Unavailable [address] [place] [address] AIMEE DURAN Unavailable Unavailable RENEECARLO HANSON Unavailable [address] [phone] [place] [address] Insurance Providers: All historical and current Section [...] U-CARE OF MEDICARE MCR Sep 29, [id number]_ [id number] [phone] MILES HANSON SI PATIENT [facility] ADVANTAGE (WNR) 2019 003 00 4 MON (WNR) U-CARE OF MEDICARE MCR Sep 29, [id number] [phone] JANES Nguyen SI PATIENT [facility] (M) (WNR) 2008 1100 4 MON (WNR) U-CARE OF MEDICARE MCR Sep 29, RIVAAB [id number] [phone] JANES Nguyen SI PATIENT [facility] ADVANTAGE (WNR) 2008 1100 4 MON (WNR) [facility]ARE MCR MEDICARE MCR Sep 29, [id number]_ [id number] [phone] MILES HANSON SI PATIENT (WNR) ADVANTAGE (WNR) 2019 003 00 5 MON [facility] MEDICARE MCR Sep 29, [id number] [phone] RENEE,S I PATIENT [facility] (WNR) 2010 [id number] MON [facility] (WNR) Selected Encounter This section includes the information on record at [place] for the Encounter. Date/Time Encounter Type Encounter Reason Provider Source Description Jan 21, 2022 HC PRO PHONE TELEPHONE/ANCILL ICD-10-CM I63.9 SA GERMAN NDR 10:21 AM CALL 5-10 MIN JULIOCESAR Cerebral infarction, A L unspecified with Provider Comments: CVA - Cerebrovascular accident ([facility] [id number]) IHE Encounter Template Text not used by [place] Assessments - Encounter Diagnoses This section includes the primary and secondary diagnoses documented for the Encounter. Date/Time Primary/Secondary Diagnosis Name Provider Source Diagnosis Jan 21, 2022 PRIMARY Cerebral ALEJANDRA PORTER V A 10:21 AM infarction, L HCS unspecified Plan of Treatment: Future Appointments (+ 6 months) and Future Tests (+/- 45 days) The Plan of Treatment section includes future care activities for the patient from all [place] treatmentfacilities. This section includes future appointments and future orders which are active, pending orscheduled.Future Appointments This section includes appointments that were scheduled to occur 6 months from the date of the Encounter, up to a maximum of 20 appointments. The data comes from all [place] treatment facilities. Appointment Date/Time Appointment Type Appointment Facili ty Name February 06, 2022 09:45 AM AMBULATORY - MEDICINE [facility] February 07, 2022 09:00 AM AMBULATORY - [facility] February 07, 2022 10:00 AM AMBULATORY [facility] Feb 27, 2022 01:15 PM AMBULATORY - [facility] Mar 04, 2022 01:30 PM AMBULATORY - [facility] Mar 11, 2022 09:00 AM AMBULATORY - REHAB MEDICINE [facility] Apr 22, 2022 03:30 PM AMBULATORY [facility] May 06, 2022 10:30 AM AMBULATORY - REHAB MEDICINE [facility] Active, Pending, and Scheduled Orders This section includes a listing of several types of active, pending, and scheduled orders, including clinic medications orders, diagnostic test orders, procedure orders and consult orders; where the start date of the order is 45 days before the date of the Encounter or 45 days after the date of the Encounter. The data comes from all [place] treatment facilities. Test Date/Time Test Type Test Details Facility Name Dec 24, 2021 08:07 AM Consult Order COMMUNITY CARE-DENTAL [facility] GEN SERV Cons Infrastructure Project Manager's Choice Jan 09, 2022 12:00 AM Laboratory - Chemistry HEMOGLOBIN A1C BLOO D [facility] Order SP ONCE Jan 09, 2022 12:00 AM Laboratory - Chemistry BASIC METABOLIC MIN [facility] Order PANEL+MG PLASMA SP ONCE Jan 09, 2022 12:00 AM Laboratory - Chemistry MICROALBUMIN/CREATI CARLINE [facility] Order E RATIO URINE URINE WC ONCE Social History: Smoking Status (Most current) and Tobacco Use (All prior to encounter date) This section includes the most current, and the historical, smoking and tobacco-related health factors from the [facility] where the Encounter took place.Current Smoking Status This section includes the most current smoking, or tobacco-related health factor, from the [place] facility where the Encounter took place. Date/Time Current Smoking Status Comment Facility Jun 13, 2020 10:00 AM VA-TOBACCO FORMER USER [facility] Tobacco Use History This section includes a history of the smoking, or tobacco- related health factors, that were collected on or before the date of the Encounter. The data comes from the [place] facility where the Encounter took place. Date/Time Smoking Status/Tobacco Use Comment [facility] it Jun 13, 2020 10:00 AM VA-TOBACCO QUIT 15 YRS OR MORE [facility] May 20, 2019 12:18 PM VA-TOBACCO FORMER USER MIN [facility] May 20, 2019 12:18 PM VA-TOBACCO QUIT 15 YRS OR MORE [facility] Jul 30, 2018 08:31 AM VA-TOBACCO FORMER USER MIN [facility] Jul 30, 2018 08:31 AM VA-TOBACCO QUIT 15 YRS OR MORE [facility] Aug 25, 2017 08:04 AM FORMER TOBACCO USER 7Y OR GREATER [facility] Nov 08, 2016 08:12 AM FORMER TOBACCO USER 7Y OR GREATER [facility] Nov 29, 2015 12:46 PM FORMER TOBACCO USER 7Y OR GREATER [facility] February 23, 2015 12:57 PM FORMER TOBACCO USER 7Y OR GREATER [facility] January 27, 2014 10:10 AM FORMER TOBACCO USER 7Y OR GREATER [facility] Mar 17, 2007 09:11 AM FORMER TOBACCO USER 7Y OR GREATER [facility] Advance Directives: All historical and current Section Date Range: From patient's date of to the date document was created. This section includes ALL of a patient's completed or amended [place] Advance and Rescinded Directives. The entries below indicate that a directive exists for the patient, but an actual copy is not included with this document. The data comes from all [place] facilities. Date Advance Directives Provider Source Mar 17, 2007 ADVANCE DIRECTIVE ALBERTO RODRIGUEZ [facility] Encounter Notes: All associated encounter notes This section contains the clinical notes associated to the Encounter. Date/Time Encounter Note(s) Provider Source Jan 21, 2022 10:21 AM CARDIOLOGY DIAGNOSTIC STUDY NOTE: ALEJANDRA PORTER [facility] LOCAL TITLE: CARDIOLOGY ELECTROPHYSIOLOGY NOTE STANDARD TITLE: CARDIOLOGY DIAGNOSTIC STUDY NOTE DATE OF NOTE: JAN 21, 2022@10:21 ENTRY DATE: JAN 21, 2022@10:21:39 AUTHOR: ALEJANDRA PORTER EXP COSIGNER: URGENCY: STATUS: COMPLETED We would be happy to follow this [employer] Loop Recorder. Implanted at [facility] on 12/27/[address]. patient resource coordinator and contacted and confirm f ollow-up of ILR to [facility]. Patient registered on website. Patient has mo nitor at bedside. to contact previous clinic for release of ILR on [place] reLink. MATTHEW to be done per [facility] and records will be scanned to note once obt ained. Implant records scanned to note. /jeffry/ ALEJANDRA PORTER RN REGISTERED NURSE Signed: 01/22/2022 11:34
--- OUTSIDE RECORDS SUMMARY | 2022-05-21 11:11 | XMS_ITS | Encounter Summary ---
:1945 Author Organization [facility] rs Address [address] [place] [address] Support Name Relationship Address Phone AIMEE DURAN Unavailable [address] [place] [address] AIMEE DURAN Unavailable Unavailable RENEE, CARLO Unavailable [address] [phone] [place] [address] Insurance Providers: All historical and current Section [...] U-CARE OF MEDICARE MCR Sep 29, [id number]_ [id number] [phone] MILES HANSON SI PATIENT [facility] ADVANTAGE (WNR) 2019 003 00 4 MON (WNR) U-CARE OF MEDICARE MCR Sep 29, [id number] [phone] JANES Nguyen SI PATIENT [facility] (M) (WNR) 2008 1100 4 MON (WNR) U-CARE OF MEDICARE MCR Sep 29, RIVAAB [id number] [phone] JANES Nguyen SI PATIENT [facility] ADVANTAGE (WNR) 2008 1100 4 MON (WNR) UCARE MCR MEDICARE MCR Sep 29, [id number]_ [id number] [phone] MILES HANSON SI PATIENT (WNR) ADVANTAGE (WNR) 2019 003 00 5 MON [facility] MEDICARE MCR Sep 29, [id number] [phone] Ihsan DURAN I PATIENT [facility] (WNR) 2010 [id number] MON [facility] (WNR) Selected Encounter This section includes the information on record at [place] for the Encounter. Date/Time Encounter Type Encounter Description Reason Provider Source February 04, 2022 11:01 Outpatient Encounter [facility] FOLLOW-UP AM IHE Encounter Template Text not used by [place] Plan of Treatment: Future Appointments (+ 6 months) and Future Tests (+/- 45 days) The Plan of Treatment section includes future care activities for the patient from all [place] [facility]. This section includes future appointments and future orders which are active, pending orscheduled.Future Appointments This section includes appointments that were scheduled to occur 6 months from the date of the Encounter, up to a maximum of 20 appointments. The data comes from all [facility]. Appointment Date/Time Appointment Type Appointment Facili ty Name February 06, 2022 09:45 AM AMBULATORY - MEDICINE [facility] February 07, 2022 09:00 AM AMBULATORY - [facility] February 07, 2022 10:00 AM AMBULATORY [facility] Feb 27, 2022 01:15 PM AMBULATORY [facility] Mar 04, 2022 01:30 PM AMBULATORY [facility] Mar 11, 2022 09:00 AM AMBULATORY - REHAB MEDICINE [facility] Apr 22, 2022 03:30 PM AMBULATORY [facility] May 06, 2022 10:30 AM AMBULATORY - REHAB [facility] Active, Pending, and Scheduled Orders This section includes a listing of several types of active, pending, and scheduled orders, including clinic medications orders, diagnostic test orders, procedure orders and consult orders; where the start date of the order is 45 days before the date of the Encounter or 45 days after the date of the Encounter. The data comes from all [facility]. Test Date/Time Test Type Test Details Facility Name Dec 24, 2021 08:07 AM Consult Order [facility] GEN SERV Cons Entry Level Accounting Clerk's Choice Jan 09, 2022 12:00 AM Laboratory - Chemistry BASIC METABOLIC MIN [facility] Order PANEL+MG PLASMA SP ONCE Jan 09, 2022 12:00 AM Laboratory - Chemistry HEMOGLOBIN A1C BLOO D [facility] Order SP ONCE Jan 09, 2022 12:00 AM Laboratory - Chemistry MICROALBUMIN/CREATI CARLINE [facility] Order E RATIO URINE URINE WC ONCE Social History: Smoking Status (Most current) and Tobacco Use (All prior to encounter date) This section includes the most current, and the historical, smoking and tobacco-related health factors from the [facility] where the Encounter took place.Current Smoking Status This section includes the most current smoking, or tobacco-related health factor, from the [facility] where the Encounter took place. Date/Time Current Smoking Status Comment Facility Jun 13, 2020 10:00 AM VA-TOBACCO FORMER USER MIN [facility] Tobacco Use History This section includes a history of the smoking, or tobacco- related health factors, that were collected on or before the date of the Encounter. The data comes from the [facility] where the Encounter took place. Date/Time Smoking Status/Tobacco Use Comment [facility] it Jun 13, 2020 10:00 AM VA-TOBACCO QUIT 15 YRS OR MORE [facility] May 20, 2019 12:18 PM VA-TOBACCO FORMER USER MIN [facility] May 20, 2019 12:18 PM VA-TOBACCO QUIT 15 YRS OR MORE [facility] Jul 30, 2018 08:31 AM VA-TOBACCO FORMER USER MIN [facility] Jul 30, 2018 08:31 AM VA-TOBACCO QUIT 15 YRS OR MORE [facility] Aug 25, 2017 08:04 AM FORMER TOBACCO USER 7Y OR GREATER [facility] Nov 08, 2016 08:12 AM FORMER TOBACCO USER 7Y OR GREATER [facility] Nov 29, 2015 12:46 PM FORMER TOBACCO USER 7Y OR GREATER [facility] February 23, 2015 12:57 PM FORMER TOBACCO USER 7Y OR GREATER [facility] January 27, 2014 10:10 AM FORMER TOBACCO USER 7Y OR GREATER [facility] Mar 17, 2007 09:11 AM FORMER TOBACCO USER 7Y OR GREATER [facility] Advance Directives: All historical and current Section Date Range: From patient's date of to the date document was created. This section includes ALL of a patient's completed or amended [place] Advance and Rescinded Directives. The entries below indicate that a directive exists for the patient, but an actual copy is not included with this document. The data comes from all [facility]. Date Advance Directives Provider Source Mar 17, 2007 ADVANCE DIRECTIVE ALBERTO RODRIGUEZ [facility] Encounter Notes: All associated encounter notes This section contains the clinical notes associated to the Encounter. Date/Time Encounter Note(s) Provider Source February 04, 2022 11:01 AM COMMUNITY SNF CARE NOTE: KATLYN MCDOWELL [facility] LOCAL TITLE: [facility] STATUS REPORT STANDARD TITLE: COMMUNITY SNF CARE NOTE DATE OF NOTE: FEBRUARY 04, 2022@11:01 ENTRY DATE: FEBRUARY 04, 2022@11:01:25 AUTHOR: KATLYN MCDOWELL EXP COSIGNER: URGENCY: STATUS: COMPLETED COMMUNITY SNF PROGRAM STATUS RE PORT [facility]: [facility] home contact: Kenya RN TYPE OF REVIEW Face to face visit was not conducted due to high positivity rate of COVID-19. Clinical chart review completed by [place] Nursing on January. SUMARY OF REVIEW Per [facility] EMR, he has had hallucinations of seeing children in the hallways. He has been yelling out instead of using his call light. He has made comments such as just let me . Nursing reorient a nd reassure. Staff continue to monitor his cognition and sales department supervisor on duty notified. [facility] PCP notified about depressive statements. AND/OR FAMILY SATISFACTION AND OBSERVATI ON [place] and/or family is satisfied with care:(i ncluding satisfaction with food, environment, staff, etc.) Yes [place] has access to social and spiritual acti vities: Yes Staff is courteous and treats with dign ity: Yes [place] has adjusted to care setting: No Concerns and/or complaints by [place] and/or fa ronak? No CLINICAL REVIEW Describe current and/or changes in status. Inclu de interventions. 1. Mental status or cognition: BIMS 13/15. Inte rmittent confusion. Hallucinating - seeing child melvin in the hallway. is involved and supportive. 2. Mood and/or behaviors: PHQ9 06/25. Mirtazapin e recently added and dose increased for anxiety and depression. Continues escitalopram. His symptoms improve when is present. VA auth in place f or ACP talk therapy. Target mood/behavior monitor ing and psych med side effects monitoring in place. 3. Elopement: No 4. Physical and/or chemical restraints: No 5. Activities of daily living assistance: Total assist with ADLs. Mechanical teddy lift for transfers. Pushed by staff in Bro da w/c for locomotion. 6. Bladder and bowel continence: Incontinent of bowel and bladder. 7. Pain: No c/o pain 8. Falls (Date, describe, & injury): No 9. Nutrition(Unplanned weight loss greater than 5% in last 30 days, hydration, swallowing, etc.): No 10. Most recent weight: 203.4 lbs Date: 11. Skin (Pressure ulcer and/or other skin cond itions): Yes Right chest ICD incision - healing Multiple bruising on BUE BLE edema 12. Therapy (Physical therapy, Occupational the rapy or Speech Therapy): Yes PT, OT, and ST VA authorization in place? Yes Making slow progress with therapy. 13. Provider visits: Yes 01/21 MD TCU f/u 01/07 [facility] acute visit for depression with anxiety 14. Emergency Room/Hospitalizations: No 15. Medications error(s) resulting in injury: N o 16. Suspected and/or confirmed abuse and/or neg lect: No 17. Minimum Data Set Assessment Reference Date: 01/10/2022 Resource Utilization Group: RVC 18. Individualized care plan: Yes 19. [place] has continued need for jail level of care: Yes PLAN: Manager Primary will continue routine oversight and assist care coordination as needed. /jeffry/ KATLYN MCDOWELL cad administrator Health Nurse Coordinator Signed: 02/04/2022 11:08
--- OUTSIDE RECORDS SUMMARY | 2022-05-21 11:11 | XMS_ITS | Encounter Summary ---
:1945 Author Organization [facility] Address [address] [place] [address] Support Name Relationship Address Phone AIMEE DURAN Unavailable [address] [place] [address] AIMEE DURAN Unavailable Unavailable RENEEJENI HANSONCarlos Unavailable [address] [phone] [place] [address] Insurance Providers: All historical and current Section [...] U-CARE OF MEDICARE MCR Sep 29, [id number]_ [id number] [phone] MILES HANSON SI PATIENT [facility] ADVANTAGE (WNR) 2019 003 00 4 MON (WNR) U-CARE OF MEDICARE MCR Sep 29, [id number] [phone] JANES Nguyen SI PATIENT [place] [facility] (M) (WNR) 2008 1100 4 MON (WNR) U-CARE OF MEDICARE MCR Sep 29, [id number] [phone] JANES Nguyen SI PATIENT [facility] ADVANTAGE (WNR) 2008 1100 4 MON (WNR) [facility]ARE MCR MEDICARE MCR Sep 29, [id number]_ [id number] [phone] MILES HANSON SI PATIENT (WNR) ADVANTAGE (WNR) 2019 003 00 5 MON [facility] MEDICARE MCR Sep 29, [id number] [phone] Ihsan DURAN I PATIENT [place] ADVANTAGE (WNR) 2010 [id number] MON [facility] (WNR) Selected Encounter This section [...] Mar 17, 2007 ADVANCE DIRECTIVE ALBERTO RODRIGUEZ [facility]
--- OUTSIDE RECORDS SUMMARY | 2022-05-21 11:11 | XMS_ITS | Encounter Summary ---
:1945 Author Organization [facility] rs Address [address] [place] [address] Support Name Relationship Address Phone AIMEE DURAN Unavailable [address] [place] [address] AIMEE DURAN Unavailable Unavailable RENEE, CARLO Unavailable [address] [phone] [place] [address] Insurance Providers: All historical and current Section [...] U-CARE OF MEDICARE MCR Sep 29, [id number] [phone] MILES HANSON SI PATIENT [facility] ADVANTAGE (WNR) 2019 003 00 4 MON (WNR) U-CARE OF MEDICARE MCR Sep 29, [id number] [phone] JANES Nguyen SI PATIENT [facility] (M) (WNR) 2008 1100 4 MON (WNR) U-CARE OF MEDICARE MCR Sep 29, [id number] [id number] [phone] JANES Nguyen SI PATIENT [facility] ADVANTAGE (WNR) 2008 1100 4 MON (WNR) [facility] MCR MEDICARE MCR Sep 29, [id number] [phone] MILES HANSON SI PATIENT (WNR) ADVANTAGE (WNR) 2019 003 00 5 MON [employer] MEDICARE MCR Sep 29, [id number] [phone] Ihsan DURAN I PATIENT [facility] (WNR) 2010 [id number] MON [facility] (WNR) Selected Encounter This section includes the information on record at [place] for the Encounter. Date/Time Encounter Type Encounter Reason Provider Source Description Jan 25, 2022 Outpatient SPEECH-LANGUAGE ICD-10-CM R13.10 TRISH DILLON 12:50 PM Encounter PATHOLOGY Dysphagia, AN unspecified with Provider Comments: Dysphagia, unspecified IHE Encounter Template Text not used by VA Assessments - Encounter Diagnoses This section includes the primary and secondary diagnoses documented for the Encounter. Date/Time Primary/Secondary Diagnosis Name Provider Source Diagnosis Jan 25, 2022 PRIMARY Dysphagia, JONATHAN DILLON 12:50 PM unspecified N HCS Plan of Treatment: Future Appointments (+ 6 months) and Future Tests (+/- 45 days) The Plan of Treatment section includes future care activities for the patient from all [place] [facility]. This section includes future appointments and future orders which are active, pending orscheduled.Future Appointments This section includes appointments that were scheduled to occur 6 months from the date of the Encounter, up to a maximum of 20 appointments. The data comes from all [place] treatment facilities. Appointment Date/Time Appointment Type Appointment Facili ty Name February 06, 2022 09:45 AM AMBULATORY - MEDICINE [facility] CS February 07, 2022 09:00 AM AMBULATORY - NONE [facility] February 07, 2022 10:00 AM AMBULATORY - [facility] Feb 27, 2022 01:15 PM AMBULATORY [facility] Mar 04, 2022 01:30 PM AMBULATORY [facility] Mar 11, 2022 09:00 AM AMBULATORY - REHAB MEDICINE [facility] Apr 22, 2022 03:30 PM AMBULATORY [facility] May 06, 2022 10:30 AM AMBULATORY - REHAB MEDICINE [facility] Active, Pending, and Scheduled Orders This section includes a listing of several types of active, pending, and scheduled orders, including clinic medications orders, diagnostic test orders, procedure orders and consult orders; where the start date of the order is 45 days before the date of the Encounter or 45 days after the date of the Encounter. The data comes from all [place] treatment [facility]. Test Date/Time Test Type Test Details Facility Name Dec 24, 2021 08:07 AM Consult Order [facility] Cons Wholesale Buyer's Choice Jan 09, 2022 12:00 AM Laboratory - Chemistry HEMOGLOBIN A1C BLOO D [facility] Order SP ONCE Jan 09, 2022 12:00 AM Laboratory - Chemistry MICROALBUMIN/CREATI CARLINE [facility] Order E RATIO URINE URINE WC ONCE Jan 09, 2022 12:00 AM Laboratory - Chemistry BASIC METABOLIC MIN [facility] Order PANEL+MG PLASMA SP ONCE Social History: Smoking Status (Most current) and Tobacco Use (All prior to encounter date) This section includes the most current, and the historical, smoking and tobacco-related health factors from the [facility] where the Encounter took place.Current Smoking Status This section includes the most current smoking, or tobacco-related health factor, from the [place] facility where the Encounter took place. Date/Time Current Smoking Status Comment Facility Jun 13, 2020 10:00 AM VA-TOBACCO FORMER USER MIN [facility] Tobacco Use History This section includes a history of the smoking, or tobacco- related health factors, that were collected on or before the date of the Encounter. The data comes from the [place] facility where the Encounter took place. Date/Time Smoking Status/Tobacco Use Comment Facil ity Jun 13, 2020 10:00 AM VA-TOBACCO QUIT 15 YRS OR MORE [facility] May 20, 2019 12:18 PM VA-TOBACCO FORMER USER MIN [facility] May 20, 2019 12:18 PM VA-TOBACCO QUIT 15 YRS OR MORE [facility] Jul 30, 2018 08:31 AM VA-TOBACCO FORMER USER MIN [facility] Jul 30, 2018 08:31 AM VA-TOBACCO QUIT 15 YRS OR MORE [facility] Aug 25, 2017 08:04 AM FORMER TOBACCO USER 7Y OR GREATER [facility] Nov 08, 2016 08:12 AM FORMER TOBACCO USER 7Y OR GREATER [facility] Nov 29, 2015 12:46 PM FORMER TOBACCO USER 7Y OR GREATER [facility] February 23, 2015 12:57 PM FORMER TOBACCO USER 7Y OR GREATER [facility] January 27, 2014 10:10 AM FORMER TOBACCO USER 7Y OR GREATER [facility] Mar 17, 2007 09:11 AM FORMER TOBACCO USER 7Y OR GREATER [facility] Advance Directives: All historical and current Section Date Range: From patient's date of to the date document was created. This section includes ALL of a patient's completed or amended [place] Advance and Rescinded Directives. The entries below indicate that a directive exists for the patient, but an actual copy is not included with this document. The data comes from all [place] facilities. Date Advance Directives Provider Source Mar 17, 2007 ADVANCE DIRECTIVE ALBERTO RODRIGUEZ [facility] HCS
--- OUTSIDE RECORDS SUMMARY | 2022-05-21 11:11 | XMS_ITS | Encounter Summary ---
:1945 Author Organization Department [facility] rs Address [address] [place] [address] Support Name Relationship Address Phone AIMEE DURAN Unavailable [address] [place] [address] AIMEE DURAN Unavailable Unavailable RENEE, CARLO Unavailable [address] [phone] [place] [address] Insurance Providers: All historical and current Section [...] U-CARE OF MEDICARE MCR Sep 29, [id number]_ [id number] [phone] MILES HANSON SI PATIENT [facility] ADVANTAGE (WNR) 2019 003 00 4 MON (WNR) U-CARE OF MEDICARE MCR Sep 29, [id number] [phone] JANES Nguyen SI PATIENT [facility] (M) (WNR) 2008 1100 4 MON (WNR) U-CARE OF MEDICARE MCR Sep 29, [id number] [phone] JANES Nguyen SI PATIENT [facility] ADVANTAGE (WNR) 2008 1100 4 MON (WNR) [facility] MCR MEDICARE MCR Sep 29, [id number]_ [id number] [phone] MILES HANSON SI PATIENT (WNR) ADVANTAGE (WNR) 2019 003 00 5 MON [facility] MEDICARE MCR Sep 29, [id number] [phone] Ihsan DURAN I PATIENT [facility] (WNR) 2010 [id number] MON [facility] (WNR) Selected Encounter This section includes the information on record at [place] for the Encounter. Date/Time Encounter Type Encounter Reason Provider Source Description Jan 25, 2022 Outpatient PM&RS PHYSICIAN ICD-10-CM THUAN HENDERSON 04:09 PM Encounter M62.81 Muscle KAREN Strong weakness (generalized) with Provider Comments: Muscle Weakness (Generalized) IHE Encounter Template Text not used by VA Assessments - Encounter Diagnoses This section includes the primary and secondary diagnoses documented for the Encounter. Date/Time Primary/Secondary Diagnosis Name Provider Source Diagnosis Jan 25, 2022 PRIMARY Muscle weakness THUAN HENDERSON [facility] S [place] 04:12 PM (generalized) KAREN J [facility] Plan of Treatment: Future Appointments (+ 6 months) and Future Tests (+/- 45 days) The Plan of Treatment section includes future care activities for the patient from all [place] treatmentfacilities. This section includes future appointments and future orders which are active, pending orscheduled.Future Appointments This section includes appointments that were scheduled to occur 6 months from the date of the Encounter, up to a maximum of 20 appointments. The data comes from all [place] treatment facilities. Appointment Date/Time Appointment Type Appointment Facili ty Name February 06, 2022 09:45 AM AMBULATORY - MEDICINE [facility] February 07, 2022 09:00 AM AMBULATORY - [facility] February 07, 2022 10:00 AM AMBULATORY - [facility] Feb 27, 2022 01:15 PM AMBULATORY - [facility] Mar 04, 2022 01:30 PM AMBULATORY [facility] Mar 11, 2022 09:00 AM AMBULATORY - REHAB MEDICINE [facility] Apr 22, 2022 03:30 PM AMBULATORY - [facility] May 06, 2022 10:30 AM AMBULATORY - REHAB MEDICINE [facility] Active, Pending, and Scheduled Orders This section includes a listing of several types of active, pending, and scheduled orders, including clinic medications orders, diagnostic test orders, procedure orders and consult orders; where the start date of the order is 45 days before the date of the Encounter or 45 days after the date of the Encounter. The data comes from all [place] treatment [facility]. Test Date/Time Test Type Test Details Facility Name Dec 24, 2021 08:07 AM Consult Order COMMUNITY [facility]-DENTAL [facility] GEN SERV Cons Manager E [employer] Jan 09, 2022 12:00 AM Laboratory - Chemistry HEMOGLOBIN A1C BLOO D [facility] Order SP ONCE Jan 09, 2022 12:00 AM Laboratory - Chemistry BASIC METABOLIC MIN [facility] Order PANEL+MG PLASMA SP ONCE Jan 09, 2022 12:00 AM Laboratory - Chemistry MICROALBUMIN/CREATI CARLINE [facility] Order E RATIO URINE URINE [...] smoking, or tobacco-related health factor, from the [place] facility where the Encounter [...] AM VA-TOBACCO QUIT 15 YRS OR MORE [facility] May 20, 2019 12:18 PM VA-TOBACCO FORMER USER MIN [facility] May 20, 2019 12:18 PM VA-TOBACCO QUIT 15 YRS OR MORE [facility] Jul 30, 2018 08:31 AM VA-TOBACCO FORMER USER MIN [facility] Jul 30, 2018 08:31 AM VA-TOBACCO QUIT 15 YRS OR MORE [facility] Aug 25, 2017 08:04 AM FORMER TOBACCO USER 7Y OR GREATER [facility] Nov 08, 2016 08:12 AM FORMER TOBACCO USER 7Y OR GREATER [facility] Nov 29, 2015 12:46 PM FORMER TOBACCO USER 7Y OR GREATER [facility] February 23, 2015 12:57 PM FORMER TOBACCO USER 7Y OR GREATER [facility] January 27, 2014 10:10 AM FORMER TOBACCO USER 7Y OR GREATER [facility] Mar 17, 2007 09:11 AM FORMER TOBACCO USER 7Y OR GREATER [facility] Advance Directives: All historical and current Section Date Range: From patient's date of to the date document was created. This section includes ALL of a patient's completed or amended [place] Advance and Rescinded Directives. The entries below indicate that a directive exists for the patient, but an actual copy is not included with this document. The data comes from all [place] facilities. Date Advance Directives Provider Source Mar 17, 2007 ADVANCE DIRECTIVE ALBERTO RODRIGUEZ [facility] Encounter Notes: All associated encounter notes This section contains the clinical notes associated to the Encounter. Date/Time Encounter Note(s) Provider Source Jan 25, 2022 04:09 PM COMMUNITY ASSISTED CARE CONSULT: KAYA ALVAREZ [facility] LOCAL TITLE: [facility] THERAPY AUTHORZATION CONSULT J STANDARD TITLE: COMMUNITY ASSISTED CARE CONS ULT DATE OF NOTE: JAN 25, 2022@16:09 ENTRY DATE: JAN 25, 2022@16:09:27 AUTHOR: KAYA HENDERSON EXP COSIGNER: URGENCY: STATUS: COMPLETED [facility] Authorization Diagnosis for treatment: Weakness PT/OT Therapy Authorization: HIGH Criteria: Up to 499 minutes per week with t he following disciplines: - Occupational Therapy: 4-5x/week for 4 weeks - Physical Therapy: 4-5x/week for 4 weeks Summary: 76 y/o with PMHx of DM II, COPD, Bladder Cancer and HTN with 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 He is now in SNF for ongoing patience ab. Previously living at home.He has been working with OT/PT for 4 weeks and is making slow slow progress toward goals of improved self cares, im proved balance, improved transfers. Continue to work with therapies for a nother 4 weeks to reach further goals if possible. Econsult and chart review total time: 15 minutes Comments: This [facility] longterm Physical/Occupational (PT/OT) Therapy authorization request was reviewed using the the [facility] documentation, therapy evaluation(s)and therapy treatment plan(s) provi ded by the longterm. Supportive VA documentation was also reviewed if available. The Otho was not clinically examined by this provider as part of the review. [facility] longterm therapy authorization revi ews are conducted for the purposes of evaluating the appropriateness for t herapy consistent with VA practices and approval for VA payment for nursin g home therapy. Appropriate clinical care and medical clearance for therapy authorization requests are the responsibility of the [facility] longterm provider. A current order for all therapies requested is required from the [facility] ensed independent practitioner directly overseeing this '[facility]. /jeffry/ KAYA HENDERSON DO PHYSICIAN, PM&R Signed: 01/25/2022 16:13 Receipt Acknowledged By: * AWAITING SIGNATURE * JOHN HATCH
--- OUTSIDE RECORDS SUMMARY | 2022-05-21 11:11 | XMS_ITS | Encounter Summary ---
:1945 Author Organization [facility] rs Address [address] [place] [address] Support Name Relationship Address Phone AIMEE COSTA Unavailable [address] [place] [address] AIMEE COSTA Unavailable Unavailable RENEE, CARLO Unavailable [address] [phone] [place] [address] Insurance Providers: All historical and current Section [...] U-CARE OF MEDICARE MCR Sep 29, [id number]_ [id number] [phone] MILES HANSON SI PATIENT [facility] ADVANTAGE (WNR) 2019 003 00 4 MON (WNR) U-CARE OF MEDICARE MCR Sep 29, [id number] [phone] JANES Nguyen SI PATIENT [facility] (M) (WNR) 2008 1100 4 MON (WNR) U-CARE OF MEDICARE MCR Sep 29, RIVAAB [id number] [phone] JANES Nguyen SI PATIENT [facility] ADVANTAGE (WNR) 2008 1100 4 MON (WNR) [facility] MCR MEDICARE MCR Sep 29, [id number]_ [id number] [phone] MILES HANSON SI PATIENT (WNR) ADVANTAGE (WNR) 2019 003 00 5 MON [facility] MEDICARE MCR Sep 29, [id number] [phone] Ihsan COSTA I PATIENT [facility] (WNR) 2010 [id number] MON [facility] (WNR) Selected Encounter This section includes the information on record at [place] for the Encounter. Date/Time Encounter Type Encounter Description Reason Provider Source Jan 25, 2022 10:56 Outpatient Encounter SPEECH-LANGUAGE AM PATHOLOGY IHE Encounter Template Text not used by [place] Plan of Treatment: Future Appointments (+ 6 months) and Future Tests (+/- 45 days) The Plan of Treatment section includes future care activities for the patient from all [place] [facility]. This section includes future appointments and future orders which are active, pending orscheduled.Future Appointments This section includes appointments that were scheduled to occur 6 months from the date of the Encounter, up to a maximum of 20 appointments. The data comes from all [facility]. Appointment Date/Time Appointment Type Appointment Facili ty Name February 06, 2022 09:45 AM AMBULATORY - MEDICINE [facility] February 07, 2022 09:00 AM AMBULATORY - [facility] February 07, 2022 10:00 AM AMBULATORY [facility] Feb 27, 2022 01:15 PM AMBULATORY - [facility] Mar 04, 2022 01:30 PM AMBULATORY - [facility] Mar 11, 2022 09:00 AM AMBULATORY - REHAB MEDICINE [facility] Apr 22, 2022 03:30 PM AMBULATORY [facility] May 06, 2022 10:30 AM AMBULATORY - REHAB [facility] Active, Pending, and Scheduled Orders This section includes a listing of several types of active, pending, and scheduled orders, including clinic medications orders, diagnostic test orders, procedure orders and consult orders; where the start date of the order is 45 days before the date of the Encounter or 45 days after the date of the Encounter. The data comes from all [facility]. Test Date/Time Test Type Test Details Facility Name Dec 24, 2021 08:07 AM Consult Order [facility] GEN SERV Cons Lining Scrubber's Choice Jan 09, 2022 12:00 AM Laboratory - Chemistry HEMOGLOBIN A1C BLOO D [facility] Order SP ONCE Jan 09, 2022 12:00 AM Laboratory - Chemistry BASIC METABOLIC MIN [facility] Order PANEL+MG PLASMA SP ONCE Jan 09, 2022 12:00 AM Laboratory - Chemistry MICROALBUMIN/CREATI CARLINE [facility] Order E RATIO URINE URINE WC ONCE Social History: Smoking Status (Most current) and Tobacco Use (All prior to encounter date) This section includes the most current, and the historical, smoking and tobacco-related health factors from the [place] facility where the Encounter took place.Current Smoking Status This section includes the most current smoking, or tobacco-related health factor, from the [facility] where the Encounter took place. Date/Time Current Smoking Status Comment Facility Jun 13, 2020 10:00 AM VA-TOBACCO FORMER USER MIN [facility] Tobacco Use History This section includes a history of the smoking, or tobacco- related health factors, that were collected on or before the date of the Encounter. The data comes from the [facility] where the Encounter took place. Date/Time Smoking Status/Tobacco Use Comment [facility] it Jun 13, 2020 10:00 AM VA-TOBACCO QUIT [address] [facility] May 20, 2019 12:18 PM VA-TOBACCO FORMER USER MIN [facility] May 20, 2019 12:18 PM VA-TOBACCO QUIT [address] [facility] Jul 30, 2018 08:31 AM VA-TOBACCO FORMER USER MIN [facility] Jul 30, 2018 08:31 AM VA-TOBACCO QUIT [address] [facility] Aug 25, 2017 08:04 AM FORMER TOBACCO USER 7Y OR GREATER [facility] Nov 08, 2016 08:12 AM FORMER TOBACCO USER 7Y OR GRE[address] [facility] Nov 29, 2015 12:46 PM FORMER TOBACCO USER 7Y OR GRE[address] [facility] February 23, 2015 12:57 PM FORMER TOBACCO USER 7Y OR GRE[address] [facility] January 27, 2014 10:10 AM FORMER TOBACCO USER 7Y OR GRE[address] [facility] Mar 17, 2007 09:11 AM FORMER TOBACCO USER 7Y OR GRE[address] [facility] Advance Directives: All historical and current Section Date Range: From patient's date of to the date document was created. This section includes ALL of a patient's completed or amended [place] Advance and Rescinded Directives. The entries below indicate that a directive exists for the patient, but an actual copy is not included with this document. The data comes from all [facility]. Date Advance Directives Provider Source Mar 17, 2007 ADVANCE DIRECTIVE ALBERTO RODRIGUEZ [facility] Encounter Notes: All associated encounter notes This section contains the clinical notes associated to the Encounter. Date/Time Encounter Note(s) Provider Source Jan 25, 2022 10:56 AM COMM[facility]ITY [facility] CARE CONSULT: ALICJA ALMENDAREZ [facility] LOCAL TITLE: [facility] THERAPY AUTHORZATION CONSULT STANDARD TITLE: COMM[facility] CARE CONS ULT DATE OF NOTE: JAN 25, 2022@10:56 ENTRY DATE: JAN 25, 2022@10:56:51 AUTHOR: ALICJA DILLON EXP COSIGNER: URGENCY: STATUS: COMPLETED CN THERAPY AUTHORZATION CONSULT Has ADDEND A [facility] Authorization REQUEST TYPE, DURATION, FREQUENCY DENIED/APPROVE D: Request: 5x/week x 4 weeks. -deny. Docum entation does not support intensity of request Approve:3x/week for 4 weeks for 720 min. Diagnosis for treatment: dysphagia, dysarthria, cog/com. deficit Previous [facility] [employer] authorization: 01/03/22: 5x/week x 4 weeks. Approve. Total of 12 00 minutes Comments: Mr. Costa is a 76 year old with PMHx of DM II, COPD, Bladder Cancer and HTN. 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 He was di scharged to SNF and has completed 4 week of [employer] treatment focusing on co gnitive communication and swallowing. Additional therapy is now requested. Per [employer] documentation, cassandra walker's swallow function was recently assessed via FEES and diet was upgraded to thins via [employer] cup. He remains on soft and bite sized solids. Minimal to no functional change no geovanny towards speech production and cognitive communication goals. This [facility] home Speech Therapy author ization request was reviewed using the medical documenta tion, therapy evaluation(s) and therapy treatment plan(s) provided by the [facility]. Supportive VA documentation was also reviewed if available. Th e was not clinically examined by this provider as part of the review. Time spent on this service: 35 min. /jeffry/ ALICJA DILLON M.S.,[facility]-[employer] SPEECH PATHOLOGIST Signed: 01/25/2022 12:50 Receipt Acknowledged By: 01/25/2022 14:04 /jeffry/ JOHN HATCH ERP MANAGER 01/25/2022 16:08 /jfefry/ KAYA HENDERSON DO PHYSICIAN, PM&R 01/25/2022 13:06 /jeffry/ ANTONIA SERRANO MSW CLINICAL APPLICATIONS SPECIALIST 01/25/2022 ADDENDUM STATUS: COMPLETED Agree with [employer] authorization as noted above. /jeffry/ KAYA HENDERSON DO PHYSICIAN, PM&R Signed: 01/25/2022 16:08
--- OUTSIDE RECORDS SUMMARY | 2022-05-21 11:11 | XMS_ITS | Encounter Summary ---
:1945 Author Organization [facility] rs Address [address] [place] [address] Support Name Relationship Address Phone AIMEE DURAN Unavailable [address] [place] [address] AIMEE DURAN Unavailable Unavailable RENEECARLO HANSON Unavailable [phone] [phone] [place] [address] Insurance Providers: All historical and current Section [...] U-CARE OF MEDICARE MCR Sep 29, [id number] [phone] MILES HANSON SI PATIENT [facility] ADVANTAGE (WNR) 2019 003 00 4 MON (WNR) U-CARE OF MEDICARE MCR Sep 29, [id number] [phone] JANES Nguyen SI PATIENT [facility] (M) (WNR) 2008 1100 4 MON (WNR) U-CARE OF MEDICARE MCR Sep 29, [id number] [phone] JANES Nguyen SI PATIENT [facility] ADVANTAGE (WNR) 2008 1100 4 MON (WNR) [facility]ARE MCR MEDICARE MCR Sep 29, [id number] [phone] MILES HANSON SI PATIENT (WNR) ADVANTAGE (WNR) 2019 003 00 5 MON [facility]ARE MEDICARE MCR Sep 29, [id number] [phone] Ihsan DURAN I PATIENT [facility] (WNR) 2010 [id number] [facility] (WNR) Selected Encounter This section includes the information on record at [place] for the Encounter. Date/Time Encounter Type Encounter Reason Provider Source Description February 06, 2022 Outpatient TELEPHONE/MEDICI ICD-10-CM I63.9 RAUL MITCHELL 09:45 AM Encounter NE Cerebral infarction, N unspecified with Provider Comments: CVA - Cerebrovascular accident ([facility] [id number]) IHE Encounter Template Text not used by [facility] Assessments - Encounter Diagnoses This section includes the primary and secondary diagnoses documented for the Encounter. Date/Time Primary/Secondary Diagnosis Name Provider Source Diagnosis February 06, 2022 PRIMARY Cerebral FASHING[place]UER,M [place] V A 09:45 AM infarction, [facility] unspecified Plan of Treatment: Future Appointments (+ [...] Name February 07, 2022 09:00 AM AMBULATORY - [facility] February 07, 2022 10:00 AM AMBULATORY [facility] Feb 27, 2022 01:15 PM AMBULATORY [facility] Mar 04, 2022 01:30 PM AMBULATORY [facility] Mar 11, 2022 09:00 AM AMBULATORY - REHAB MEDICINE [facility] Apr 22, 2022 03:30 PM AMBULATORY [facility] May 06, 2022 10:30 AM AMBULATORY - REHAB MEDICINE [facility] Active, Pending, and Scheduled Orders [...] The data comes from all [place] treatment [facility]. Test Date/Time Test Type Test Details Facility Name Dec 24, 2021 08:07 AM Consult Order [facility] SERV Cons Configuration Management Specialist's Choice Jan 09, 2022 12:00 AM Laboratory - Chemistry HEMOGLOBIN A1C [facility]OO [facility] Order SP ONCE Jan 09, 2022 12:00 AM Laboratory - Chemistry MICROALBUMIN/CREATI [facility] Order E RATIO URINE URINE WC ONCE Jan 09, 2022 12:00 AM Laboratory - Chemistry BASIC METABOLIC MIN [facility] Order PANEL+MG PLASMA SP ONCE Social History: Smoking Status (Most current) and Tobacco Use (All prior to encounter date) This section includes the most current, and the historical, smoking and tobacco-related health factors from the [facility] where the Encounter took place.Current Smoking Status This section includes the most current smoking, or tobacco-related health factor, from the [place] facility where the Encounter took place. Date/Time Current Smoking Status Comment Facility Jun 13, 2020 10:00 AM VA-TOBACCO FORMER USER [facility] Tobacco Use History This section includes a history of the smoking, or tobacco- related health factors, that were collected on or before the date of the Encounter. The data comes from the [place] facility where the Encounter took place. Date/Time Smoking Status/Tobacco Use Comment Facil ity Jun 13, 2020 10:00 AM VA-TOBACCO QUIT 15 YRS OR MORE [facility] May 20, 2019 12:18 PM VA-TOBACCO FORMER USER [facility] May 20, 2019 12:18 PM VA-TOBACCO QUIT 15 YRS OR MORE [facility] Jul 30, 2018 08:31 AM VA-TOBACCO FORMER USER [facility] Jul 30, 2018 08:31 AM VA-TOBACCO QUIT 15 YRS OR MORE [facility] Aug 25, 2017 08:04 AM FORMER TOBACCO USER 7Y OR GREATER [facility] Nov 08, 2016 08:12 AM FORMER TOBACCO USER 7Y OR GREATER [facility] Nov 29, 2015 12:46 PM FORMER TOBACCO USER 7Y OR GREATER [facility] February 23, 2015 12:57 PM FORMER TOBACCO USER 7Y OR GREATER [facility] January 27, 2014 10:10 AM FORMER TOBACCO USER 7Y OR GREATER [facility] Mar 17, 2007 09:11 AM FORMER TOBACCO USER 7Y OR GREATER [facility] Advance Directives: All historical and current Section [...] 2007 ADVANCE DIRECTIVE ALBERTO RODRIGUEZ [facility]
--- OUTSIDE RECORDS SUMMARY | 2022-05-21 11:12 | XMS_ITS ---
:1945 Author Organization [facility] rs Address [address] [place] [address] Support Name Relationship Address Phone AIMEE DURAN Unavailable [address] [place] [address] AIMEE DURAN Unavailable Unavailable RENEE, CARLO Unavailable [address] [phone] [place] [address] Insurance Providers: All historical and current Section [...] U-CARE OF MEDICARE MCR Sep 29, [id number] [phone] MILES HANSON SI PATIENT [facility] ADVANTAGE (WNR) 2019 003 00 4 MON (WNR) U-CARE OF MEDICARE MCR Sep 29, [id number] [phone] JANES Nguyen SI PATIENT [facility] (M) (WNR) 2008 1100 4 MON (WNR) U-CARE OF MEDICARE MCR Sep 29, [id number] [phone] JANES Nguyen SI PATIENT [facility] ADVANTAGE (WNR) 2008 1100 4 MON (WNR) UCARE MCR MEDICARE MCR Sep 29, [id number] [phone] MILES HANSON SI PATIENT (WNR) ADVANTAGE (WNR) 2019 003 00 5 MON [facility] MEDICARE MCR Sep 29, [id number] [phone] Ihsan DURAN I PATIENT [facility] (WNR) 2010 [id number] MON [facility] (WNR) Selected Encounter This section includes the information on record at [place] for the Encounter. Date/Time Encounter Type Encounter Description Reason Provider Source Feb 28, 2022 01:45 Outpatient Encounter CN FOLLOW-UP PM IHE Encounter Template Text not used by [place] Plan of Treatment: Future Appointments (+ 6 months) and Future Tests (+/- 45 days) The Plan of Treatment section includes future care activities for the patient [facility] [place] [facility] This section includes future appointments and future orders which are active, pending orscheduled.Future Appointments This section includes appointments that were scheduled to occur 6 months from the date of the Encounter, up to a maximum of 20 appointments. The data comes from all [place] treatment facilities. Appointment Date/Time Appointment Type Appointment Facili ty Name Mar 04, 2022 01:30 PM AMBULATORY - NONE [facility] Mar 11, 2022 09:00 AM AMBULATORY - REHAB MEDICINE [facility] Apr 22, 2022 03:30 PM AMBULATORY - [facility] May 06, 2022 10:30 AM AMBULATORY - REHAB MEDICINE [facility] Social History: Smoking Status (Most current) and Tobacco Use (All prior to encounter date) This section includes the most current, and the historical, smoking and tobacco-related health factors from the [place] facility where the Encounter took place.Current Smoking Status This section includes the most current smoking, or tobacco-related health factor, from the [place] facility where the Encounter took place. Date/Time Current Smoking Status Comment Facility Jun 13, 2020 10:00 AM VA-TOBACCO FORMER USER MIN [facility] Tobacco Use History This section includes a history of the smoking, or tobacco- related health factors, that were collected on or before the date of the Encounter. The data comes from the [place] facility where the Encounter took place. Date/Time Smoking Status/Tobacco Use Comment Facil [facility] Jun 13, 2020 10:00 AM VA-TOBACCO QUIT [address] [facility] May 20, 2019 12:18 PM VA-TOBACCO FORMER USER MIN [facility] May 20, 2019 12:18 PM VA-TOBACCO QUIT [address] [facility] Jul 30, 2018 08:31 AM VA-TOBACCO FORMER USER MIN [facility] Jul 30, 2018 08:31 AM VA-TOBACCO QUIT [address] [facility] Aug 25, 2017 08:04 AM FORMER TOBACCO USER 7Y OR GRE[facility] Nov 08, 2016 08:12 AM FORMER TOBACCO USER 7Y OR [facility] [facility] Nov 29, 2015 12:46 PM FORMER TOBACCO USER 7Y OR [facility] [facility] February 23, 2015 12:57 PM FORMER TOBACCO USER 7Y OR [address] [facility] January 27, 2014 10:10 AM FORMER TOBACCO USER 7Y OR [facility] [facility] Mar 17, 2007 09:11 AM FORMER TOBACCO USER 7Y OR [facility] [facility] Advance Directives: All historical and current Section Date Range: From patient's date of to the date document was created. This section includes ALL of a patient's completed or amended [place] Advance and Rescinded Directives. The entries below indicate that a directive exists for the patient, but an actual copy is not included with this document. The data comes from all [place] facilities. Date Advance Directives Provider Source Mar 17, 2007 ADVANCE DIRECTIVE ALBERTO RODRIGUEZ [facility] Encounter Notes: All associated encounter notes This section contains the clinical notes associated to the Encounter. Date/Time Encounter Note(s) Provider Source Feb 28, 2022 01:46 PM COMMUNITY DETENTION CARE NOTE: RJ REBOLLAR [facility] LOCAL TITLE: [facility] STATUS REPORT STANDARD TITLE: COMMUNITY DETENTION CARE NOTE DATE OF NOTE: FEB 28, 2022@13:46 ENTRY DATE: FEB 28, 2022@13:47:32 AUTHOR: CHAPIS REBOLLAR EXP COSIGNER: URGENCY: STATUS: COMPLETED COMMUNITY DETENTION PROGRAM STATUS RE [place] [facility] contact: Kenya Veloz RN - EMR revi ew TYPE OF REVIEW Face to face visit was not conducted due to high positivity rate of COVID-19. Clinical chart review completed by [place] Wor fabricio on Feb. AND/OR FAMILY SATISFACTION AND OBSERVATI ON and/or family is satisfied with care:(i ncluding satisfaction with food, environment, staff, etc.) Yes [place]lor has access to social and spiritual acti vities: Yes Staff is courteous and treats with dign ity: Yes has adjusted to care setting: Yes Concerns and/or complaints by [place] and/or fa ronak? Yes, and unhappy with facility. Exploring transferring hi m to another facility in [place]. Goal is to have breanna traore return home, but progress has been minimal in therapies. CLINICAL REVIEW Describe current and/or changes in status. Inclu de interventions. 1. Mental status or cognition: BIMS 2. Mood and/or behaviors: 06/25 PHQ. is receiving ACP services r/t mood. Verbally aggressive toward staff. 3. Elopement: No 4. Physical and/or chemical restraints: No 5. Activities of daily living assistance: Exten sive assist x2 with grooming, dressing, transferring with ez lift. able to eat with supervision and meal tray set up. 6. Bladder and bowel continence: incontinent of both bowel and bladder 7. Pain: None noted 8. Falls (Date, describe, & injury):No 9. Nutrition(Unplanned weight loss greater than 5% in last 30 days, hydration, swallowing, etc.):No 10. Most recent weight: 197 Date: 02/27/22 11. Skin (Pressure ulcer and/or other skin cond itions): Yes open blister on back of right thigh, between scr otom/inner right thigh 12. Therapy (Physical therapy, Occupational the rapy or Speech Therapy): Yes VA authorization in place? Yes 13. Provider visits: Yes 02/19/22: FOREST TECHNOLOGY PROFESSOR visit 02/01/22: ACP visit 14. Emergency Room/Hospitalizations: No 15. Medications error(s) resulting in injury: N o 16. Suspected and/or confirmed abuse and/or neg lect: No 17. Minimum Data Set Assessment Reference Date: 01/26/22 Resource Utilization Group: JOE ESCALONA 18. Individualized care plan: Yes 19. [place] has continued need for mcc level of care: Yes PLAN: Manager [employer] will continue routine oversight and assist care coordination as needed. /jeffry/ LORETTA BAZAN HADOOP JAVA DEVELOPER BROKERAGE MANAGER Signed: 02/28/2022 14:14
--- OUTSIDE RECORDS SUMMARY | 2022-05-21 11:12 | XMS_ITS | Encounter Summary ---
:1945 Author Organization [facility] rs Address [address] [place] [address] Support Name Relationship Address Phone AIMEE COSTA Unavailable [address] [place] [address] AIMEE COSTA Unavailable Unavailable RENEE, CARLO Unavailable [address] [phone] [place] [address] Insurance Providers: All historical and current Section [...] U-CARE OF MEDICARE MCR Sep 29, [id number]_ [id number] [phone] MILES HANSON SI PATIENT [facility] ADVANTAGE (WNR) 2019 003 00 4 MON (WNR) U-CARE OF MEDICARE MCR Sep 29, [id number] [phone] JANES Nguyen SI PATIENT [facility] (M) (WNR) 2008 1100 4 MON (WNR) U-CARE OF MEDICARE MCR Sep 29, [id number] [phone] JANES Nguyen SI PATIENT [facility] ADVANTAGE (WNR) 2008 1100 4 MON (WNR) UCARE MCR MEDICARE MCR Sep 29, [id number] [phone] MILES HANSON SI PATIENT (WNR) ADVANTAGE (WNR) 2019 003 00 5 MON [facility] MEDICARE MCR Sep 29, [id number] [phone] Ihsan COSTA I PATIENT [facility] (WNR) 2010 [id number] MON [facility] (WNR) Selected Encounter This section includes the information on record at [place] for the Encounter. Date/Time Encounter Type Encounter Description Reason Provider Source February 19, 2022 02:14 Outpatient Encounter SPEECH-LANGUAGE PM PATHOLOGY IHE Encounter Template Text not used by [place] Plan of Treatment: Future Appointments (+ 6 months) and Future Tests (+/- 45 days) The Plan of Treatment section includes future care activities for the patient from all [place] [facility]. This section includes future appointments and future orders which are active, pending orscheduled.Future Appointments This section includes appointments that were scheduled to occur 6 months from the date of the Encounter, up to a maximum of 20 appointments. The data comes from all [facility]. Appointment Date/Time Appointment Type Appointment Facili ty Name Feb 27, 2022 01:15 PM AMBULATORY - [facility] Mar 04, 2022 01:30 PM AMBULATORY [facility] Mar 11, 2022 09:00 AM AMBULATORY - REHAB MEDICINE [facility] Apr 22, 2022 03:30 PM AMBULATORY [facility] May 06, 2022 10:30 AM AMBULATORY - REHAB MEDICINE [facility] Active, Pending, and Scheduled Orders This section includes a listing of several types of active, pending, and scheduled orders, including clinic medications orders, diagnostic test orders, procedure orders and consult orders; where the start date of the order is 45 days before the date of the Encounter or 45 days after the date of the Encounter. The data comes from all [facility]. Test Date/Time Test Type Test Details Facility Name Jan 09, 2022 12:00 AM Laboratory - Chemistry HEMOGLOBIN A1C BLOO D [facility] Order SP ONCE Jan 09, 2022 12:00 AM Laboratory - Chemistry BASIC METABOLIC MIN [facility] Order PANEL+MG PLASMA SP ONCE Jan 09, 2022 12:00 AM Laboratory - Chemistry MICROALBUMIN/CREATI [facility] Order E RATIO URINE URINE WC [...] 10:00 AM VA-TOBACCO FORMER USER MIN [facility] Tobacco Use History This section includes a history of the smoking, or tobacco- related health factors, that were collected on or before the date of the Encounter. The data comes from the [place] facility where the Encounter took place. Date/Time Smoking Status/Tobacco Use Comment [facility] Jun 13, 2020 10:00 AM VA-TOBACCO QUIT [address] [facility] May 20, 2019 12:18 PM VA-TOBACCO FORMER USER MIN [facility] May 20, 2019 12:18 PM VA-TOBACCO QUIT [address] [facility] Jul 30, 2018 08:31 AM VA-TOBACCO FORMER USER MIN [facility] Jul 30, 2018 08:31 AM VA-TOBACCO QUIT [address] [facility] Aug 25, 2017 08:04 AM FORMER TOBACCO USER 7Y OR [facility] [facility] Nov 08, 2016 08:12 AM FORMER TOBACCO USER 7Y OR [address] [facility] Nov 29, 2015 12:46 PM FORMER TOBACCO USER 7Y OR [facility] [facility] February 23, 2015 12:57 PM FORMER TOBACCO USER 7Y OR [facility] [facility] January 27, 2014 10:10 AM FORMER TOBACCO USER 7Y OR [facility] [facility] Mar 17, 2007 09:11 AM FORMER TOBACCO USER 7Y OR [address] [facility] Advance Directives: All historical and current Section Date Range: From patient's date of to the date document was created. This section includes ALL of a patient's completed or amended [place] Advance and Rescinded Directives. The entries below indicate that a directive exists for the patient, but an actual copy is not included with this document. The data comes from all [facility]. Date Advance Directives Provider Source Mar 17, 2007 ADVANCE DIRECTIVE ALBERTO RODRIGUEZ [facility] Encounter Notes: All associated encounter notes This section contains the clinical notes associated to the Encounter. Date/Time Encounter Note(s) Provider Source February 19, 2022 02:14 PM COMMUNITY MCC CARE CONSULT: ALICJA ALMENDAREZ [facility] LOCAL TITLE: [facility] THERAPY AUTHORZATION CONSULT STANDARD TITLE: COMMUNITY MCC CARE CONS ULT DATE OF NOTE: FEBRUARY 19, 2022@14:14 ENTRY DATE: FEBRUARY 19, 2022@14:14:53 AUTHOR: ALICJA DILLON EXP COSIGNER: URGENCY: STATUS: COMPLETED [facility] Authorization REQUEST TYPE, DURATION, FREQUENCY DENIED/APPROVE D: Request: 5x/week x 4 weeks. -deny. Docum entation does not support intensity of request Approve: 6 additional sessions in 4 weeks; for t otal of 240 min. with goals focused on maintenance and patient/family/caregi vers education b regarding swallowing and speech compen satory strategies (as stated in SENIOR PRODUCTION MANAGER documentation). Diagnosis for treatment: dysphagia, dysarthria, cog/com. deficit Previous [facility] SENIOR PRODUCTION MANAGER authorization: 01/03/22: 5x/week x 4 weeks. Approve. Total of 1 200 minutes 01/25/22: 3x/week for 4 weeks for 720 min. Comments: Mr. Costa is a 76 year old with PMHx of DM II, COPD, Bladder Cancer and HTN. 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 He was di scharged to SNF and has completed 8 weeks of SENIOR PRODUCTION MANAGER treatment thus far, wit h focus on cognitive communication and swallowing. Additional therapy is now requested. Per SENIOR PRODUCTION MANAGER documentation, swallowing function remai ns stable since last update. [place] continues on thins v ia Provale cup and soft solids with supervision. No reported progress towards speech production and cognitive communication goals. This [facility] home Speech Therapy author ization request was reviewed using the medical documenta tion, therapy evaluation(s) and therapy treatment plan(s) provided by the [facility]. Supportive VA documentation was also reviewed if available. e [place] was not clinically examined by this provider as part of the review. Time spent on this service: 35 min. /jeffry/ ALICJA DILLON M.S.,[facility]-SENIOR PRODUCTION MANAGER SPEECH PATHOLOGIST Signed: 02/19/2022 14:44
--- OUTSIDE RECORDS SUMMARY | 2022-05-21 11:12 | XMS_ITS | Encounter Summary ---
:1945 Author Organization Department [facility] rs Address [address] [place] [address] Support Name Relationship Address Phone AIMEE DURAN Unavailable [address] [place] [address] AIMEE DURAN Unavailable Unavailable RENEE, CARLO Unavailable [address] [phone] [place] [address] Insurance Providers: All historical and current Section [...] U-CARE OF MEDICARE MCR Sep 29, [id number] [phone] MILES HANSON SI PATIENT [facility] ADVANTAGE (WNR) 2019 003 00 4 MON (WNR) U-CARE OF MEDICARE MCR Sep 29, [id number] [phone] JANES Nguyen SI PATIENT [facility] (M) (WNR) 2008 1100 4 MON (WNR) U-CARE OF MEDICARE MCR Sep 29, [id number] [phone] JANES Nguyen SI PATIENT [facility] ADVANTAGE (WNR) 2008 1100 4 MON (WNR) [facility]ARE MCR MEDICARE MCR Sep 29, [id number] [phone] MILES HANSON SI PATIENT (WNR) ADVANTAGE (WNR) 2019 003 00 5 MON [employer]ARE MEDICARE MCR Sep 29, [id number] [phone] Ihsan DURAN I PATIENT [facility] (WNR) 2010 [id number] MON [facility] (WNR) Selected Encounter This section includes the information on record at [place] for the Encounter. Date/Time Encounter Type Encounter Reason Provider Source Description February 19, 2022 Outpatient PM&RS PHYSICIAN ICD-10-CM THUAN HENDERSON 05:14 PM Encounter M62.81 Muscle KAREN J weakness (generalized) with Provider Comments: Muscle Weakness (Generalized) IHE Encounter Template Text not used by [facility] Assessments - Encounter Diagnoses This section includes the primary and secondary diagnoses documented for the Encounter. Date/Time Primary/Secondary Diagnosis Name Provider Source Diagnosis February 19, 2022 PRIMARY Muscle weakness THUAN HENDERSON [facility] 05:18 PM (generalized) KAREN J [facility] Plan of Treatment: Future Appointments (+ 6 months) and Future Tests (+/- 45 days) The Plan of Treatment section includes future care activities for the patient from all [place] [facility] This section includes future appointments and future orders which are active, pending orscheduled.Future Appointments This section includes appointments that were scheduled to occur 6 months from the date of the Encounter, up to a maximum of 20 appointments. The data comes from all [facility]. Appointment Date/Time Appointment Type Appointment Facili ty Name Feb 27, 2022 01:15 PM AMBULATORY - NONE [facility] Mar 04, 2022 01:30 PM AMBULATORY - [facility] Mar 11, 2022 09:00 AM AMBULATORY - [facility] Apr 22, 2022 03:30 PM AMBULATORY - [facility] May 06, 2022 10:30 AM AMBULATORY - [facility] Active, Pending, and Scheduled Orders This [...] The data comes from all [place] treatment [facility]. Test Date/Time Test Type Test Details Facility Name Jan 09, 2022 12:00 AM Laboratory - Chemistry HEMOGLOBIN A1C BLOO D [facility] Order SP ONCE Jan 09, 2022 12:00 AM Laboratory - Chemistry [facility]IC [facility]ABOLIC [facility] Order PANEL+MG PLASMA SP ONCE Jan 09, 2022 12:00 AM Laboratory - Chemistry MICROALBUMIN/CREATI CARILNE [facility] Order E RATIO URINE [...] 2020 10:00 AM VA-TOBACCO FORMER USER [facility] Tobacco Use History This section [...] 2019 12:18 PM VA-TOBACCO FORMER USER [facility] May 20, 2019 12:18 PM VA-TOBACCO QUIT 15 YRS OR MORE [facility] Jul 30, 2018 08:31 AM VA-TOBACCO FORMER USER [facility] Jul 30, 2018 08:31 AM [...] from all [facility]. Date Advance Directives Provider Source Mar 17, 2007 ADVANCE DIRECTIVE ALBERTO RODRIGUEZ [facility] Encounter Notes: All associated encounter notes This section contains the clinical notes associated to the Encounter. Date/Time Encounter Note(s) Provider Source February 19, 2022 05:14 PM COMMUNITY DETENTION CARE CONSULT: KAYA ALVAREZ [facility] LOCAL TITLE: [facility] THERAPY AUTHORZATION CONSULT J STANDARD TITLE: COMMUNITY DETENTION CARE CONS ULT DATE OF NOTE: FEBRUARY 19, 2022@17:14 ENTRY DATE: FEBRUARY 19, 2022@17:14:36 AUTHOR: KAYA HENDERSON EXP COSIGNER: URGENCY: STATUS: COMPLETED [facility] Authorization Diagnosis for treatment: Weakness PT/OT Therapy Authorization: MODERATE Criteria: Up to 324 minutes per week wi th the following disciplines: - Occupational Therapy: 2-3x/week for 3 weeks - Physical Therapy: 3x/week for 3 weeks Summary: 76 y/o with PMHx of DM II, COPD, Bladder Cancer and HTN with 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 He is now in SNF for ongoing patience ab. Previously living at home.He has been working wit h OT/PT for 8 weeks and has not made much progress, minimal in the last 4 weeks. Will begin transiti on to CHANNEL PROGRAM MANAGER. OT to assist with getting wheelchair as needed, maximize self care s. Econsult and chart review total time: 15 minutes Comments: This [facility] Physical/Occupational (PT/OT) Therapy authorization request was reviewed using the [facility] documentation, therapy evaluation(s)and therapy treatment plan(s) provi ded by the shelter. Supportive VA documentation was also reviewed if available. The [place] was not clinically examined by this provider as part of the review. [facility] home therapy authorization revi ews are conducted for the purposes of evaluating the appropriateness for t herapy consistent with [place] practices and approval for [place] payment for nursin g home therapy. Appropriate clinical care and medical clearance for therapy authorization requests are the responsibility of the [facility] provider. A current order for all therapies requested is required from the licensed independent practitioner directly overseeing this [place]'s care at the [facility]. /jeffry/ KAYA HENDERSON DO PHYSICIAN, PM&R Signed: 02/19/2022 17:18 Receipt Acknowledged By: * AWAITING SIGNATURE * JOHN HATCH
--- OUTSIDE RECORDS SUMMARY | 2022-05-21 11:12 | XMS_ITS | Encounter Summary ---
:1945 Author Organization [facility] rs Address [address] [place] [id number] Support Name Relationship Address Phone AIMEE DURAN Unavailable [address] [place] [address] AIMEE DURAN Unavailable Unavailable RENEECARLO HANSON Unavailable [address] [phone] [place] [address] Insurance Providers: All historical and current Section [...] U-CARE OF MEDICARE MCR Sep 29, [id number]_ [id number] [phone] MILES HANSON SI PATIENT [facility] ADVANTAGE (WNR) 2019 003 00 4 MON (WNR) U-CARE OF MEDICARE MCR Sep 29, [id number] [phone] JANES Nguyen SI PATIENT [facility] (M) (WNR) 2008 1100 4 MON (WNR) U-CARE OF MEDICARE MCR Sep 29, RIVAAB [id number] [phone] JANES Nguyen SI PATIENT [facility] ADVANTAGE (WNR) 2008 1100 4 MON (WNR) UCARE MCR MEDICARE MCR Sep 29, [id number]_ [id number] [phone] MILES HANSON SI PATIENT (WNR) ADVANTAGE (WNR) 2019 003 00 5 MON [facility]ARE MEDICARE MCR Sep 29, [id number] [phone] Ihsan DURAN I PATIENT [facility] (WNR) 2010 [id number] MON [facility] (WNR) Selected Encounter This section includes the information on record at [place] for the Encounter. Date/Time Encounter Type Encounter Description Reason Provider Source Feb 28, 2022 02:29 Outpatient Encounter TELEPHONE/ANCILLARY PM IHE Encounter Template Text not used by [place] Plan of Treatment: Future Appointments (+ 6 months) and Future Tests (+/- 45 days) The Plan of Treatment section includes future care activities for the patient from all [place] [facility]. This section includes future appointments and future orders which are active, pending orscheduled.Future Appointments This section includes appointments that were scheduled to occur 6 months from the date of the Encounter, up to a maximum of 20 appointments. The data comes from all [place] treatment facilities. Appointment Date/Time Appointment Type Appointment Facili ty Name Mar 04, 2022 01:30 PM AMBULATORY - NONE [facility] Mar 11, 2022 09:00 AM AMBULATORY - [facility] Apr 22, 2022 03:30 PM AMBULATORY - [facility] May 06, 2022 10:30 AM AMBULATORY - [facility] Social History: Smoking Status (Most current) and Tobacco Use (All prior to encounter date) This section includes the most current, and the historical, smoking and tobacco-related health factors from the [place] facility where the Encounter took place.Current Smoking Status This section includes the most current smoking, or tobacco-related health factor, from the [place] facility where the Encounter took place. Date/Time Current Smoking Status Comment Facility Jun 13, 2020 10:00 AM VA-TOBACCO FORMER USER [facility] Tobacco Use History This section includes a history of the smoking, or tobacco- related health factors, that were collected on or before the date of the Encounter. The data comes from the [place] facility where the Encounter took place. Date/Time Smoking Status/Tobacco Use Comment [facility] Jun 13, 2020 10:00 AM VA-TOBACCO QUIT 15 YRS OR MORE [facility] May 20, 2019 12:18 PM VA-TOBACCO FORMER USER [facility] May 20, 2019 12:18 PM VA-TOBACCO QUIT 15 YRS OR MORE [facility] Jul 30, 2018 08:31 AM VA-TOBACCO FORMER USER [facility] Jul 30, 2018 08:31 AM VA-TOBACCO QUIT 15 YRS OR MORE [facility] Aug 25, 2017 08:04 AM FORMER TOBACCO USER 7Y OR GREATER [facility] Nov 08, 2016 08:12 AM FORMER TOBACCO USER 7Y OR GREATER [facility] Nov 29, 2015 12:46 PM FORMER TOBACCO USER 7Y OR GREATER [facility] February 23, 2015 12:57 PM FORMER TOBACCO USER 7Y OR GREATER [facility] January 27, 2014 10:10 AM FORMER TOBACCO USER 7Y OR GREATER [facility] Mar 17, 2007 09:11 AM FORMER TOBACCO USER 7Y OR GREATER [facility] Advance Directives: All historical and current [...] Mar 17, 2007 ADVANCE DIRECTIVE ALBERTO RODRIGUEZ [facility] Encounter Notes: All associated encounter notes This section contains the clinical notes associated to the Encounter. Date/Time Encounter Note(s) Provider Source Feb 28, 2022 02:29 PM [facility]ITY [facility] CARE NOTE: ALBERTO ANTHONY [facility] LOCAL TITLE: [facility] COORDINATION NOTE STANDARD TITLE: [facility] C[facility] NOTE DATE OF NOTE: FEB 28, 2022@14:29 ENTRY DATE: FEB 28, 2022@14:30:13 AUTHOR: ALBERTO ANTHONY COSIGNER: URGENCY: STATUS: COMPLETED [facility] COORDINATION NOTE Has ADDENDA Spoke with Ronda from the therapy department at [facility] regarding needs. Therapy would like a YOSSI montano to be able to collaborate with [place] in getting the a specialty wheelchair. Will not be providing OT until appointment is made with YOSSI, and will need mi nutes at that time. Alerting provider for review and consideration o f placing consult. /jeffry/ Alberto Anthony RN, BSN, CRRN [facility] Nurse Truck Greaser/Heel Seam Rubber Signed: 02/28/2022 14:31 Receipt Acknowledged By: 03/04/2022 08:07 /jeffry/ KAYA HENDERSON DO PHYSICIAN, PM&R 03/01/2022 ADDENDUM STATUS: COMPLETED Major med consult placed for approval on chair. Once approved, will order telemed wheelchair clinic consult. /jeffry/ KAYA HENDERSON DO PHYSICIAN, PM&R Signed: 03/01/2022 06:34 03/04/2022 ADDENDUM STATUS: COMPLETED Consult placed for [place] Wheelchair telemed clinic. /zhanna HENDERSON DO PHYSICIAN, PM&R Signed: 03/04/2022 08:08
--- OUTSIDE RECORDS SUMMARY | 2022-05-21 11:12 | XMS_ITS | Encounter Summary ---
:1945 Author Organization [facility] rs Address [address] [place] [address] Support Name Relationship Address Phone AIMEE DURAN Unavailable [address] [place] [address] AIMEE DURAN Unavailable Unavailable RENEECARLO HANSON Unavailable [address] [phone] [place] [address] Insurance Providers: All historical and current Section [...] U-CARE OF MEDICARE MCR Sep 29, [id number]_ [id number] [phone] MILES HANSON SI PATIENT [facility] ADVANTAGE (WNR) 2019 003 00 4 MON (WNR) U-CARE OF MEDICARE MCR Sep 29, [id number] [phone] JANES Nguyen SI PATIENT [facility] (M) (WNR) 2008 1100 4 MON (WNR) U-CARE OF MEDICARE MCR Sep 29, RIVAAB [id number] [phone] JANES Nguyen SI PATIENT [facility] ADVANTAGE (WNR) 2008 1100 4 MON (WNR) UCARE MCR MEDICARE MCR Sep 29, [id number]_ [id number] [phone] MILES HANSON SI PATIENT (WNR) ADVANTAGE (WNR) 2019 003 00 5 MON [facility]ARE MEDICARE MCR Sep 29, [id number] [phone] RENEE,S I PATIENT [facility] (WNR) 2010 [id number] MON [facility] (WNR) Selected Encounter This section includes the information on record at [place] for the Encounter. Date/Time Encounter Type Encounter Description Reason Provider Source February 21, 2022 09:13 Outpatient Encounter TELEPHONE/ANCILLARY AM IHE Encounter Template Text not used by [place] Plan of Treatment: Future Appointments (+ 6 months) and Future Tests (+/- 45 days) The Plan of Treatment section includes future care activities for the patient from all [place] [facility]. This section includes future appointments and future orders which are active, pending orscheduled.Future Appointments This section includes appointments that were scheduled to occur 6 months from the date of the Encounter, up to a maximum of 20 appointments. The data comes from all [facility]. Appointment Date/Time Appointment Type Appointment Facili ty Name Feb 27, 2022 01:15 PM AMBULATORY - [facility] Mar 04, 2022 01:30 PM AMBULATORY [facility] Mar 11, 2022 09:00 AM AMBULATORY - REHAB [facility]ICINE [facility] Apr 22, 2022 03:30 PM AMBULATORY [facility] May 06, 2022 10:30 AM AMBULATORY - [facility]AB [facility]IC[facility] Active, Pending, and Scheduled Orders This section includes a listing of several types of active, pending, and scheduled orders, including clinic medications orders, diagnostic test orders, procedure orders and consult orders; where the start date of the order is 45 days before the date of the Encounter or 45 days after the date of the Encounter. The data comes from all [facility]. Test Date/Time Test Type Test Details [...] YRS OR MORE [facility] Tobacco Use History This section includes a history of the smoking, or tobacco- related health factors, that were collected on or before the date of the Encounter. The data comes from the [place] facility where the Encounter took place. Date/Time Smoking Status/Tobacco Use Comment [facility] Jun 13, 2020 10:00 AM VA-TOBACCO [...] Encounter. Date/Time Encounter Note(s) Provider Source February 21, 2022 09:13 AM HOME HEALTH NOTE: CHAPIS REBOLLAR [facility] LOCAL TITLE: [facility] PROGRESS NOTE STANDARD TITLE: HOME HEALTH NOTE DATE OF NOTE: FEBRUARY 21, 2022@09:13 ENTRY DATE: FEBRUARY 21, 2022@09:13:57 AUTHOR: CHAPIS REBOLLAR EXP COSIGNER: URGENCY: STATUS: COMPLETED Night Supervisor received call from Elinor charles ([phone]) to discuss why is only be authorized therapy 3x a week now. Night Supervisor reviewe d that latest therapy authorization note with Aimee and informed her t hat based on the therapy information being sent it that h as made minimal progress in the past 4 weeks, which likely resulted in reductio n of therapy minutes being authorized. Night Supervisor informed Aimee if the therapy department at [facility] feels that would benefit from m ore therapy that they could appeal this decision and sent in the necessary documents to suppo rt the increased need for more therapy minutes. Aimee voiced understanding and acknowle dged that may be challenging to work with since he isn't the most pleasant patient. Aimee stated that rina has a follow up neurol ogy appointment with [place] on 02/27/22 and stated that this appointment might be helpful in determining what 's prognosis is and what is feasible for him in regards to how much improvement there may be for . Aimee stat ed that she will wait until after this appointment to determine next steps. Aimee also stated she is considering moving to another [facility] facility and is wondering the process for that. Night Supervisor informed he r that she would have to work with the [facility] to make a referral fo r to be assessed for admission to another [place] contracted facility. Aimee voiced understanding of this process. No other questions/concerns at this time. time spent: 15 min /jeffry/ LORETTA BAZAN HIGHWAY MAINTAINER LORETTA Signed: 02/21/2022 09:19
--- OUTSIDE RECORDS SUMMARY | 2022-05-21 11:12 | XMS_ITS | Encounter Summary ---
:1945 Author Organization [facility] rs Address [address] [place] [address] Support Name Relationship Address Phone AIMEE DURAN Unavailable [address] [place] [address] AIMEE DURAN Unavailable Unavailable RENEECARLO HANSON Unavailable [address] [phone] [place] [address] Insurance Providers: All historical and current Section [...] U-CARE OF MEDICARE MCR Sep 29, [id number]_ [id number] [phone] MILES HANSON SI PATIENT [facility] ADVANTAGE (WNR) 2019 003 00 4 MON (WNR) U-CARE OF MEDICARE MCR Sep 29, [id number] [phone] JANES Nguyen SI PATIENT [facility] (M) (WNR) 2008 1100 4 MON (WNR) U-CARE OF MEDICARE MCR Sep 29, RIVAAB [id number] [phone] JANES Nguyen SI PATIENT [facility] ADVANTAGE (WNR) 2008 1100 4 MON (WNR) UCARE MCR MEDICARE MCR Sep 29, [id number]_ [id number] [phone] MILES HANSON SI PATIENT (WNR) ADVANTAGE (WNR) 2019 003 00 5 MON [facility] MEDICARE MCR Sep 29, [id number] [phone] Ihsan DURAN I PATIENT [facility] (WNR) 2010 [id number] MON [facility] (WNR) Selected Encounter This section includes the information on record at [place] for the Encounter. Date/Time Encounter Type Encounter Description Reason Provider Source February 12, 2022 02:12 Outpatient Encounter CI[employer] DEV[employer] PM IHE Encounter Template Text not used by [place] Plan of Treatment: Future Appointments (+ 6 months) and Future Tests (+/- 45 days) The Plan of Treatment section includes future care activities for the patient from all [place] [facility]. This section includes future appointments and future orders which are active, pending orscheduled.Future Appointments This section includes appointments that were scheduled to occur 6 months from the date of the Encounter, up to a maximum of 20 appointments. The data comes from all [facility]. Appointment Date/Time Appointment Type Appointment Facili ty Name Feb 27, 2022 01:15 PM AM[facility]ULATORY - [facility] Mar 04, 2022 01:30 PM AMBULATORY [facility] Mar 11, 2022 09:00 AM AMBULATORY - RE[facility]AB MEDICINE [facility] Apr 22, 2022 03:30 PM AMBULATORY [facility] May 06, 2022 10:30 AM AMBULATORY [...] The data comes from all [facility]. Test Date/Time Test Type Test Details Facility Name Jan 09, 2022 12:00 AM Laboratory - Chemistry HEMOGLOBIN A1C BLOO D [facility] Order SP ONCE Jan 09, 2022 12:00 AM Laboratory - Chemistry BASIC METABOLIC [facility] Order PANEL+MG PLASMA SP ONCE Jan 09, 2022 12:00 AM Laboratory - Chemistry MICROALBUMIN/CREATI CARLINE [facility] Order E RATIO URINE URINE WC ONCE Social History: Smoking Status (Most current) and Tobacco Use (All prior to encounter date) This section includes the most current, and the historical, smoking and tobacco-related health factors from the [place] facility where the Encounter took place.Current Smoking Status This section includes the most current smoking, or tobacco-related health factor, from the [place] facility where the Encounter took place. Date/Time Current Smoking Status Comment Facility Jun 13, 2020 10:00 AM VA-TOBACCO FORMER USER [facility] Tobacco Use History This section includes a history of the smoking, or tobacco- related health factors, that were collected on or before the date of the Encounter. The data comes from the [place] facility where the Encounter took place. Date/Time Smoking Status/Tobacco Use Comment [facility] Jun 13, 2020 10:00 [...] ALL of a patient's completed or amended [place] Advance and Rescinded Directives. The entries below [...] Encounter. Date/Time Encounter Note(s) Provider Source February 12, 2022 02:12 CARDIOLOGY DIAGNOSTIC STUDY NOTE: DEMETRIO NEVILLE [facility] PM LOCAL TITLE: CARDIOLOGY ELECTROPHYSIOLOGY NOTE RET STANDARD TITLE: CARDIOLOGY DIAGNOSTIC STUDY NOTE DATE OF NOTE: FEBRUARY 12, 2022@14:12 ENTRY DATE: FEBRUARY 12, 2022@14:13:01 AUTHOR: JE DUNHAM EXP COSIGNER: URGENCY: STATUS: COMPLETED CARDIOLOGY ELECTROPHYSIOLOGY NOTE Has ADDEN DA Unscheduled Event report on [employer] Loop with 1 pause episode and 80 additional AF episodes. Two ECGs avail only Pause episode # 119 detected 02/11/22 appears to be under sensing, no true pause. AF episode # 104 appears to be false detection, P waves appear present. Multiple PVCs on presenting EGM. Device totals 1 pause and 118 afib. Report available via [facility] Reviewing with [employer] Indication: Cryptogenic Stroke Patient recently transferred follow-up of loop f rom [facility]. AUNG Boothe completed CROW consult. /zhanna DUNHAM EPCS EP Clinical Specialist Signed: 02/12/2022 15:05 02/13/2022 ADDENDUM STATUS: COMPLETED Account reviewed on [facility], AF episodes are se t to web alert only. Able to change to red alert but unable to confirm red al ert= email notification. Also attempted to make repro gramming changes to avoid false pause detection due to undersensing-unable to make changes. Email to National Staff to corazon fregoso allow full privledges, to all of device staff, to make necessary changes. /VENKATA Baugh EP Clinical Specialist Signed: 02/13/2022 09:08 02/13/2022 ADDENDUM STATUS: COMPLETED [employer]'s review of false pause to minimize false detections, you can use the re mote programming feature in [facility] to reprogram: 1.) SENSITIVITY to .025mV 2.) AF: Detection Sensitivity to LESS SENSITIVIT E Above programming completed on [facility] site. [facility] [employer] Summary of episodes to date False pause (#119) due to u ndersensing, frequent ectopy observed. Was patient's first pause and was therefore bypassed per the A I algorithm rules, recommend reprogramming sensitivity to 25uV. False AF episodes observed (#47,71,76,77,78,103) due to ectopy. AF text only episodes can be assumed fals e when viewed ECG are determined false. AI algorithm has removed ~66% false AF episodes of higher fal se confidence. Recommend reprogramming AF sensitivity to LESS Sensitive (consider AF duration change to 10min if significant false episode detections co ntinue). /VENKATA Baugh EP Clinical Specialist Signed: 02/15/2022 07:16
--- OUTSIDE RECORDS SUMMARY | 2022-05-21 11:12 | XMS_ITS | Encounter Summary ---
:1945 Author Organization [facility] rs Address [address] [place] [address] Support Name Relationship Address Phone AIMEE DURAN Unavailable [address] [place] [address] AIMEE DURAN Unavailable Unavailable RENEE, CARLO Unavailable [address] [phone] [place] [address] Insurance Providers: All historical and current Section [...] U-CARE OF MEDICARE MCR Sep 29, [id number] [phone] MILES HANSON SI PATIENT [facility] ADVANTAGE (WNR) 2019 003 00 4 MON (WNR) U-CARE OF MEDICARE MCR Sep 29, [id number] [phone] JANES Nguyen SI PATIENT [facility] (M) (WNR) 2008 1100 4 MON (WNR) U-CARE OF MEDICARE MCR Sep 29, [id number] [phone] JANES Nguyen SI PATIENT [facility] ADVANTAGE (WNR) 2008 1100 4 MON (WNR) [facility] MCR MEDICARE MCR Sep 29, [id number]_ [id number] [phone] MILES HANSON SI PATIENT (WNR) ADVANTAGE (WNR) 2019 003 00 5 MON [facility] MEDICARE MCR Sep 29, [id number] [phone] Ihsan DURAN I PATIENT [facility] (WNR) 2010 [id number] MON [facility] (WNR) Selected Encounter This section includes the information on record at [place] for the Encounter. Date/Time Encounter Type Encounter Description Reason Provider Source February 18, 2022 01:05 Outpatient Encounter CN FOLLOW-UP PM IHE Encounter Template Text not used by [place] Plan of Treatment: Future Appointments (+ 6 months) and Future Tests (+/- 45 days) The Plan of Treatment section includes future care activities for the patient from all [place] [facility]. This section includes future appointments and future orders which are active, pending orscheduled.Future Appointments This section includes appointments that were scheduled to occur 6 months from the date of the Encounter, up to a maximum of 20 appointments. The data comes from all [facility]. Appointment Date/Time Appointment Type Appointment Facili ty Name Feb 27, 2022 01:15 PM AMBULATORY - NONE [facility] Mar 04, 2022 01:30 PM AMBULATORY - [facility] Mar 11, 2022 09:00 AM AMBULATORY - REHAB MEDICINE [facility] Apr 22, 2022 03:30 PM AMBULATORY [facility] May 06, 2022 10:30 AM AMBULATORY - REHAB MEDICINE [facility] Active, Pending, and Scheduled Orders This section includes a listing of several types of active, pending, and scheduled orders, including clinic medications orders, diagnostic test orders, procedure orders and consult orders; where the start date of the order is 45 days before the date of the Encounter or 45 days after the date of the Encounter. The data comes from all [facility]. Test Date/Time Test Type Test Details Facility Name Jan 09, 2022 12:00 AM Laboratory - Chemistry HEMOGLOBIN A1C BLOO D [facility] Order SP ONCE Jan 09, 2022 12:00 AM Laboratory - Chemistry BASIC METABOLIC [facility] Order PANEL+MG PLASMA SP ONCE Jan 09, 2022 12:00 AM Laboratory - Chemistry MICROALBUMIN/CREATI CARLINE [facility] Order E RATIO URINE URINE WC ONCE Social History: Smoking Status (Most current) and Tobacco Use (All prior to encounter date) This section includes the most current, and the historical, smoking and tobacco-related health factors from the [place] facility where the Encounter took place.Current Smoking Status This section includes the most current smoking, or tobacco-related health factor, from the [place] facility where the Encounter took place. Date/Time Current Smoking Status Comment Facility Jun 13, 2020 10:00 AM VA-TOBACCO FORMER USER [facility] Tobacco Use History This section includes a history of the smoking, or tobacco- related health factors, that were collected on or before the date of the Encounter. The data comes from the [place] facility where the Encounter took place. Date/Time Smoking Status/Tobacco Use Comment [facility] Jun 13, 2020 10:00 AM VA-TOBACCO QUIT 15 YRS OR MORE [facility] May 20, 2019 12:18 PM VA-TOBACCO FORMER USER [facility] May 20, 2019 12:18 PM VA-TOBACCO QUIT 15 YRS OR MORE [facility] Jul 30, 2018 08:31 AM VA-TOBACCO FORMER USER [facility] Jul 30, 2018 08:31 AM VA-TOBACCO QUIT [...] ALL of a patient's completed or amended [place] Advance and Rescinded Directives. The entries below [...] Encounter. Date/Time Encounter Note(s) Provider Source February 18, 2022 01:07 PM COMMUNITY ALF CARE NOTE: RJ REBOLLAR [facility] LOCAL TITLE: [facility] MENTAL HEALTH AUTHORIZATIO N/EXTENSION STANDARD TITLE: COMMUNITY ALF CARE NOTE DATE OF NOTE: FEBRUARY 18, 2022@13:07 ENTRY DATE: FEBRUARY 18, 2022@13:07:37 AUTHOR: CHAPIS REBOLLAR EXP COSIGNER: URGENCY: STATUS: COMPLETED Jail: [facility] Facility contact: JULIO CÉSAR KhalilMARGIEBETH Reyez Jun [facility] [address], [place] [address] Temporary Address Start: Dec Temporary Address Stop: Description of request: Ongoing psychotherapy sessions to continue to a ssessing for suicidal ideation and depression. Does [place] have a [facility] provider? N o Additional authorization: Approved for 3 months . Will need additional ACP clinical notes if more sessions are needed calixton david oliveira. Next update: 05/21/22 Faxed note to: [phone] /es/ LORETTA BAZAN SECURITY DELIVERY SPECIALIST SUPERVISOR PLASMA Signed: 02/18/2022 13:10 Receipt Acknowledged By: * AWAITING SIGNATURE * NORBERT PALMA
--- OUTSIDE RECORDS SUMMARY | 2022-05-21 11:13 | XMS_ITS | Encounter Summary ---
:1945 Author Organization [facility] rs Address [address] [place] [address] Support Name Relationship Address Phone AIMEE DURAN Unavailable [address] [place] [address] AIMEE DURAN Unavailable Unavailable RENEECARLO HANSON Unavailable [address] [phone] [place] [address] Insurance Providers: All historical and current Section [...] U-CARE OF MEDICARE MCR Sep 29, [id number] [phone] MILES HANSON SI PATIENT [facility] ADVANTAGE (WNR) 2019 003 00 4 MON (WNR) U-CARE OF MEDICARE MCR Sep 29, [id number] [phone] JANES Nguyen SI PATIENT [facility] (M) (WNR) 2008 1100 4 MON (WNR) U-CARE OF MEDICARE MCR Sep 29, [id number] [phone] JANES Nguyen SI PATIENT [facility] ADVANTAGE (WNR) 2008 1100 4 MON (WNR) [facility] MCR MEDICARE MCR Sep 29, [id number]_ [id number] [phone] MILES HANSON SI PATIENT (WNR) ADVANTAGE (WNR) 2019 003 00 5 MON [facility] MEDICARE MCR Sep 29, [id number] [phone] RENEE,S I PATIENT [facility] (WNR) 2010 [id number] MON [facility] (WNR) Selected Encounter This section includes the information on record at [place] for the Encounter. Date/Time Encounter Type Encounter Description Reason Provider Source Mar 25, 2022 10:53 Outpatient Encounter TELEPHONE/ANCILLARY AM IHE Encounter Template Text not used by [place] Plan of Treatment: Future Appointments (+ 6 months) and Future Tests (+/- 45 days) The Plan of Treatment section includes future care activities for the patient from all [place] [facility]. This section includes future appointments and future orders which are active, pending orscheduled.Future Appointments This section includes appointments that were scheduled to occur 6 months from the date of the Encounter, up to a maximum of 20 appointments. The data comes from all [place] treatment [facility]. Appointment Date/Time Appointment Type Appointment Facili ty Name Apr 22, 2022 03:30 PM AMBULATORY - NONE [facility] May 06, 2022 10:30 AM AMBULATORY - REHAB MEDICINE [facility] Active, Pending, and Scheduled Orders This section includes a listing of several types of active, pending, and scheduled orders, including clinic medications orders, diagnostic test orders, procedure orders and consult orders; where the start date of the order is 45 days before the date of the Encounter or 45 days after the date of the Encounter. The data comes from all [place] treatment [facility]. Test Date/Time Test Type Test Details Facility Name May 06, 2022 10:43 AM Consult Order PROSTHETICS REQUEST Cons [facility] Inspector Automatic Typewriter's Choice Social History: Smoking Status (Most current) and Tobacco Use (All prior to encounter date) This section includes the most current, and the historical, smoking and tobacco-related health factors from the [place] facility where the Encounter took place.Current Smoking Status This section includes the most current smoking, or tobacco-related health factor, from the [place] facility where the Encounter took place. Date/Time Current Smoking Status Comment Facility Jun 13, 2020 10:00 AM VA-TOBACCO FORMER USER [facility] Tobacco Use History This section includes a history of the smoking, or tobacco- related health factors, that were collected on or before the date of the Encounter. The data comes from the [place] facility where the Encounter took place. Date/Time Smoking Status/Tobacco Use Comment [facility] Jun 13, 2020 10:00 AM VA-TOBACCO QUIT 15 YRS OR MORE [facility] May 20, 2019 12:18 PM VA-TOBACCO FORMER USER MIN [facility] May 20, 2019 12:18 PM VA-TOBACCO QUIT 15 YRS OR MORE [facility] Jul 30, 2018 08:31 AM VA-TOBACCO FORMER USER MIN [facility] Jul 30, 2018 08:31 AM VA-TOBACCO QUIT 15 YRS OR MORE [facility] Aug 25, 2017 08:04 AM FORMER TOBACCO USER 7Y OR GREATER [facility] Nov 08, 2016 08:12 AM FORMER TOBACCO USER 7Y OR GREATER [facility] Nov 29, 2015 12:46 PM FORMER TOBACCO USER 7Y OR GREATER [facility] February 23, 2015 12:57 PM FORMER TOBACCO USER 7Y OR GREATER [facility] January 27, 2014 10:10 AM FORMER TOBACCO USER 7Y OR GREATER [facility] Mar 17, 2007 09:11 AM FORMER TOBACCO USER 7Y OR GREATER [facility] Advance Directives: All historical and current Section Date Range: From patient's date of to the date document was created. This section includes ALL of a patient's completed or amended [place] Advance and Rescinded Directives. The entries below indicate that a directive exists for the patient, but an actual copy is not included with this document. The data comes from all [place] facilities. Date Advance Directives Provider Source Mar 17, 2007 ADVANCE DIRECTIVE ALBERTO RODRIGUEZ [facility] Encounter Notes: All associated encounter notes This section contains the clinical notes associated to the Encounter. Date/Time Encounter Note(s) Provider Source Mar 25, 2022 10:53 AM HOME HEALTH NOTE: CHAPIS REBOLLAR [facility] LOCAL TITLE: [facility] PROGRESS NOTE STANDARD TITLE: HOME HEALTH NOTE DATE OF NOTE: MAR 25, 2022@10:53 ENTRY DATE: MAR 25, 2022@10:53:11 AUTHOR: CHAPIS REBOLLAR EXP COSIGNER: URGENCY: STATUS: COMPLETED Quiller Hand received call from Aimee, 's wondering if can go to be assessed by Ruchi Roberto in [place] for therapies and if the VA would pay. had been receiving therapies at the [facility], but they have stated that he has platued. [place]'s neuro logist recommended more therapies, but Aimee reports that the [facility] stated they do not feel he qualifie s and now she would like a second opinion. Quiller Hand explained that therapies are included und er his VA contract at the [facility] and that the VA can't pay fo r him to go see outside therapies, but that he could use his insurance (Medicare part B). Explained w ping could also not cover transportation since it would not be [facility]. Aimee stated she would check in [facility] 's insurance and also talk with the SW at [facility] about transportation options. time spent: 10 min /jeffry/ LORETTA BAZAN SKIP MINER BLASTING LORTETA Signed: 03/25/2022 11:01
--- OUTSIDE RECORDS SUMMARY | 2022-05-21 11:13 | XMS_ITS | Encounter Summary ---
:1945 Author Organization [facility] rs Address [address] [place] [address] Support Name Relationship Address Phone AIMEE DURAN Unavailable [address] [place] [address] AIMEE DURAN Unavailable Unavailable RENEE CARLO Unavailable [address] [phone] [place] [address] Insurance Providers: All historical and current Section [...] U-CARE OF MEDICARE MCR Sep 29, [id number]_ [id number] [phone] MILES HANSON SI PATIENT [facility] ADVANTAGE (WNR) 2019 003 00 4 MON (WNR) U-CARE OF MEDICARE MCR Sep 29, [id number] [phone] JANES Nguyen SI PATIENT [facility] (M) (WNR) 2008 1100 4 MON (WNR) U-CARE OF MEDICARE MCR Sep 29, RIVAAB [id number] [phone] JANES Nguyen SI PATIENT [facility] ADVANTAGE (WNR) 2008 1100 4 MON (WNR) [facility]ARE MCR MEDICARE MCR Sep 29, [id number]_ [id number] [phone] MILES HANSON SI PATIENT (WNR) ADVANTAGE (WNR) 2019 003 00 5 MON [facility] MEDICARE MCR Sep 29, [id number] [phone] Ihsan DURAN I PATIENT [facility] (WNR) 2010 [id number] MON [facility] (WNR) Selected Encounter This section includes the information on record at [place] for the Encounter. Date/Time Encounter Type Encounter Description Reason Provider Source Mar 13, 2022 10:12 Outpatient Encounter WHEELCHAIR & ADVAN AM MOBILITY IHE Encounter Template Text not used by [place] Plan of Treatment: Future Appointments (+ 6 months) and Future Tests (+/- 45 days) The Plan of Treatment section includes future care activities for the patient from all [place] [facility]. This section includes future appointments and future orders which are active, pending orscheduled.Future Appointments This section includes appointments that were scheduled to occur 6 months from the date of the Encounter, up to a maximum of 20 appointments. The data comes from all [place] treatment facilities. Appointment Date/Time Appointment Type Appointment Facili ty Name Apr 22, 2022 03:30 PM AMBULATORY - NONE [facility] May 06, 2022 10:30 AM AMBULATORY - REHAB MEDICINE [facility] Social History: Smoking Status (Most current) and Tobacco Use (All prior to encounter date) This section includes the most current, and the historical, smoking and tobacco-related health factors from the [place] facility where the Encounter took place.Current Smoking Status This section includes the most current smoking, or tobacco-related health factor, from the [place] facility where the Encounter [...] took place. Date/Time Smoking Status/Tobacco Use Comment [facility] Jun 13, 2020 10:00 AM VA-TOBACCO QUIT 15 YRS OR MORE [facility] May 20, 2019 12:18 PM VA-TOBACCO FORMER USER MIN [facility] May 20, 2019 12:18 PM VA-TOBACCO QUIT 15 YRS OR MORE [facility] Jul 30, 2018 08:31 AM VA-TOBACCO FORMER USER MIN [facility] Jul 30, 2018 08:31 AM VA-TOBACCO QUIT 15 YRS OR MORE [facility] Aug 25, 2017 08:04 AM FORMER TOBACCO USER 7Y OR GREATER [facility] Nov 08, 2016 08:12 AM FORMER TOBACCO USER 7Y OR GREATER [facility] Nov 29, 2015 12:46 PM FORMER TOBACCO USER 7Y OR GREATER [facility] February 23, 2015 12:57 PM FORMER TOBACCO USER 7Y OR GREATER [facility] January 27, 2014 10:10 AM FORMER TOBACCO USER 7Y OR GREATER [facility] Mar 17, 2007 09:11 AM FORMER TOBACCO USER 7Y OR [facility] Advance Directives: All historical and [...] Mar 17, 2007 ADVANCE DIRECTIVE JENNIFERALBERTO Anjana [facility] Encounter Notes: All associated encounter notes This section contains the clinical notes associated to the Encounter. Date/Time Encounter Note(s) Provider Source Mar 13, 2022 10:12 AM REPORT OF CONTACT: SHANDA MORGAN [facility] LOCAL TITLE: PATIENT CONTACT NOTE STANDARD TITLE: REPORT OF CONTACT DATE OF NOTE: MAR 13, 2022@10:12 ENTRY DATE: MAR 13, 2022@10:12:32 AUTHOR: SHANDA MORGAN EXP COSIGNER: URGENCY: STATUS: COMPLETED PATIENT CONTACT NOTE Has ADDENDA Patient contact Name of : BETH DURAN Name/Relationship of Contact if other than Veter an: Provider Date & Time of Contact: Feb@10:12 Type of Contact: Telephone Reason for Contact: Abby Hutchison from [employer] called ,she wants to give provider her updated contact information and asks that the pr ovider contact her. [phone], [email or web address] /es/ SHANDA MORGAN ADVANCED MSA Signed: 03/13/2022 10:18 Receipt Acknowledged By: 03/13/2022 11:35 /zhanna De León OTR/L, ATP OCCUPATIONAL THERAPIST 03/13/2022 ADDENDUM STATUS: COMPLETED VM left providing writers direct number. /zhanna De León, OTR/L, ATP OCCUPATIONAL THERAPIST Signed: 03/13/2022 11:36
--- OUTSIDE RECORDS SUMMARY | 2022-05-21 11:13 | XMS_ITS | Encounter Summary ---
:1945 Author Organization [facility] rs Address [address] [place] [address] Support Name Relationship Address Phone AIMEE DURAN Unavailable [address] [place] [address] AIMEE DURAN Unavailable Unavailable RENEECARLO HANSON Unavailable [address] [phone] [place] [address] Insurance Providers: All historical and current Section [...] U-CARE OF MEDICARE MCR Sep 29, [id number]_ [id number] [phone] MILES HANSON SI PATIENT [facility] ADVANTAGE (WNR) 2019 003 00 4 MON (WNR) U-CARE OF MEDICARE MCR Sep 29, [id number] [phone] JANES Nguyen SI PATIENT [facility] (M) (WNR) 2008 1100 4 MON (WNR) U-CARE OF MEDICARE MCR Sep 29, [id number] [phone] JANES Nguyen SI PATIENT [facility] ADVANTAGE (WNR) 2008 1100 4 MON (WNR) [facility] MCR MEDICARE MCR Sep 29, [id number]_ [id number] [phone] MILES HANSON SI PATIENT (WNR) ADVANTAGE (WNR) 2019 003 00 5 MON [facility] MEDICARE MCR Sep 29, [id number] [phone] RENEE,S I PATIENT [facility] (WNR) 2010 [id number] MON [facility] (WNR) Selected Encounter This section includes the information on record at [place] for the Encounter. Date/Time Encounter Type Encounter Description Reason Provider Source February 07, 2022 12:00 Outpatient Encounter COMMUNITY CARE AM CONSULT IHE Encounter Template Text not used by [place] Plan of Treatment: Future Appointments (+ 6 months) and Future Tests (+/- 45 days) The Plan of Treatment section includes future care activities for the patient from all [place] [facility]. This section includes future appointments and future orders which are active, pending orscheduled.Future Appointments This section includes appointments that were scheduled to occur 6 months from the date of the Encounter, up to a maximum of 20 appointments. The data comes from all [place] treatment [facility]. Appointment Date/Time Appointment Type Appointment Facili ty Name Feb 27, 2022 01:15 PM AMBULATORY - NONE [facility] Mar 04, 2022 01:30 PM AMBULATORY [facility] Mar 11, 2022 09:00 AM AMBULATORY - REHAB MED[facility]INE [facility] Apr 22, 2022 03:30 PM AMBULATORY [facility] May 06, 2022 10:30 AM AMBULATORY - REHAB MEDICINE [facility] Active, Pending, and Scheduled Orders This section includes a listing of several types of active, pending, and scheduled orders, including clinic medications orders, diagnostic test orders, procedure orders and consult orders; where the start date of the order is 45 days before the date of the Encounter or 45 days after the date of the Encounter. The data comes from all [facility]. Test Date/Time Test Type Test Details Facility Name Dec 24, 2021 08:07 AM Consult Order COMMUNITY CARE-D[facility]AL [facility] GEN SERV Cons Medical Claims Processor's Choice Jan 09, 2022 12:00 AM Laboratory - Chemistry HEMOGLOBIN A1C BLOO D [facility] Order SP ONCE Jan 09, 2022 12:00 AM Laboratory - Chemistry MICROALBUMIN/CREATI CARLINE [facility] Order E RATIO URINE URINE WC ONCE Jan 09, 2022 12:00 AM Laboratory - Chemistry BASIC METABOLIC [facility] Order PANEL+MG PLASMA SP ONCE Social History: Smoking Status (Most current) and Tobacco Use (All prior to encounter date) This section includes the most current, and the historical, smoking and tobacco-related health factors from the [place] facility where the Encounter took place.Current Smoking Status This section includes the most current smoking, or tobacco-related health factor, from the [place] facility where the Encounter took place. Date/Time Current Smoking Status Comment Facility Jun 13, 2020 10:00 AM VA-TOBACCO FORMER USER MIN [facility] Tobacco Use History This section includes a history of the smoking, or tobacco- related health factors, that were collected on or before the date of the Encounter. The data comes from the [place] facility where the Encounter took place. Date/Time [...] ALL of a patient's completed or amended [place] Advance and Rescinded Directives. The entries below [...] Encounter. Date/Time Encounter Note(s) Provider Source February 07, 2022 12:00 AM NONVA CONSULT: ANNABELLE BARCLAY [facility] LOCAL TITLE: COMMUNITY CARE CONSULT RESULT NEUR OLOGY STANDARD TITLE: NONVA CONSULT DATE OF NOTE: FEBRUARY 07, 2022 ENTRY DATE: MAR 20 022@21:08:59 AUTHOR: PROCESS,RPA EXP COSIGNER: URGENCY: STATUS: COMPLETED [employer] - Scanned Document [facility] APPOINTMENT INFORMATION Documentation received from non-VA provider and scanned into [employer]. /jeffry/ ANNABELLE PROCESS Signed: 03/20/2022 21:08
--- OUTSIDE RECORDS SUMMARY | 2022-05-21 11:13 | XMS_ITS | Encounter Summary ---
:1945 Author Organization [facility] rs Address [address] [place] [address] Support Name Relationship Address Phone AIMEE DURAN Unavailable [address] [place] [address] AIMEE DURAN Unavailable Unavailable RENEE, CARLO Unavailable [address] [phone] [place] [address] Insurance Providers: All historical and current Section [...] U-CARE OF MEDICARE MCR Sep 29, [id number] [phone] MILES HANSON SI PATIENT [place] [facility] ADVANTAGE (WNR) 2019 003 00 4 MON (WNR) U-CARE OF MEDICARE MCR Sep 29, [id number] [phone] JANES Nguyen SI PATIENT [place] [facility] (M) (WNR) 2008 1100 4 MON (WNR) U-CARE OF MEDICARE MCR Sep 29, [id number] [id number] [phone] JANES Nguyen SI PATIENT [place] [facility] ADVANTAGE (WNR) 2008 1100 4 MON (WNR) UCARE MCR MEDICARE MCR Sep 29, [id number]_ [id number] [phone] MILES HANSON SI PATIENT (WNR) ADVANTAGE (WNR) 2019 003 00 5 MON UCARE MEDICARE MCR Sep 29, [id number] [phone] Ihsan DURAN I PATIENT [facility] (WNR) 2010 [id number] MON [facility] (WNR) Selected Encounter This section includes the information on record at [place] for the Encounter. Date/Time Encounter Type Encounter Description Reason Provider Source Mar 26, 2022 01:46 Outpatient Encounter ADMIN PAT ACTIVTIES PM (JUANITONONCT) IHE Encounter Template Text not used by [place] Plan of Treatment: Future Appointments (+ 6 months) and Future Tests (+/- 45 days) The Plan of Treatment section includes future care activities for the patient from all [place] [facility] This section includes future appointments and future orders which are active, pending orscheduled.Future Appointments This section includes appointments that were scheduled to occur 6 months from the date of the Encounter, up to a maximum of 20 appointments. The data comes from all [place] treatment [facility]. Appointment Date/Time Appointment Type Appointment Facili ty Name Apr 22, 2022 03:30 PM AMBULATORY - NONE [facility] May 06, 2022 10:30 AM [...] AM Consult Order PROSTHETICS REQUEST Cons M [facility] B[employer] Social History: Smoking Status (Most current) and Tobacco Use (All prior to encounter date) This section includes the most current, and the historical, smoking and tobacco-related health factors from the [place] facility where the Encounter took place.Current Smoking Status This section includes the most current smoking, or tobacco-related health factor, from the [place] facility where the Encounter took place. Date/Time Current Smoking Status Comment Facility Jun 13, 2020 10:00 AM MO-TOBACCO QUIT 15 YRS OR MORE [facility] Tobacco Use History This section includes a history of the smoking, or tobacco- related health factors, that were collected on or before the date of the Encounter. The data comes from the [place] facility where the Encounter took place. Date/Time Smoking Status/Tobacco Use Comment Facil ity Jun 13, 2020 10:00 AM VA-TOBACCO QUIT 15 YRS OR MORE [facility] May 20, 2019 12:18 PM VA-TOBACCO FORMER USER [facility] May 20, 2019 12:18 PM VA-TOBACCO QUIT 15 YRS OR MORE [facility] Jul 30, 2018 08:31 AM VA-TOBACCO FORMER USER [facility] Jul 30, 2018 08:31 AM VA-TOBACCO QUIT 15 YRS OR MORE [facility] Aug 25, 2017 08:04 AM FORMER TOBACCO USER 7Y OR GREATER [facility] Nov 08, 2016 08:12 AM FORMER TOBACCO USER 7Y OR GREATER [facility] Nov 29, 2015 12:46 PM FORMER TOBACCO USER 7Y OR GREATER [facility] February 23, 2015 12:57 PM FORMER TOBACCO USER 7Y OR GREATER [facility] January 27, 2014 10:10 AM FORMER TOBACCO USER 7Y OR GREATER [facility] Mar 17, 2007 09:11 AM FORMER TOBACCO USER 7Y OR GREATER [facility] Advance Directives: All historical and current [...] Mar 17, 2007 ADVANCE DIRECTIVE ALBERTO RODRIGUEZ [facility] Encounter Notes: All associated encounter notes This section contains the clinical notes associated to the Encounter. Date/Time Encounter Note(s) Provider Source Feb 27, 2022 01:46 PM NON[facility] LOCAL TITLE: NEUROLOGY NONVA NOTE STANDARD TITLE: NONVA NOTE DATE OF NOTE: FEB 27, 2022@13:46 ENTRY DATE: MAR 26, 2022@13:47:39 AUTHOR: GARETH BENSON EXP COSIGNER: URGENCY: STATUS: COMPLETED This note contains attached NEUROLOGY scanned do cument(s) received from an outside facility. [facility] to review the documen t(s). /jeffry/ GARETH BENSON Gun Stock Maker Signed: 03/26/2022 13:48
--- OUTSIDE RECORDS SUMMARY | 2022-05-21 11:13 | XMS_ITS | Encounter Summary ---
:1945 Author Organization [facility] rs Address [address] [place] [address] Support Name Relationship Address Phone AIMEE DURAN Unavailable [address] [place] [address] AIMEE DURAN Unavailable Unavailable RENEECARLO HANSON Unavailable [address] [phone] [place] [address] Insurance Providers: All historical and current Section [...] U-CARE OF MEDICARE MCR Sep 29, [id number] [phone] MILES HANSON SI PATIENT [facility] ADVANTAGE (WNR) 2019 003 00 4 MON (WNR) U-CARE OF MEDICARE MCR Sep 29, [id number] [phone] JANES Nguyen SI PATIENT [facility] (M) (WNR) 2008 1100 4 MON (WNR) U-CARE OF MEDICARE MCR Sep 29, RIVAAB [id number] [phone] JANES Nguyen SI PATIENT [facility] ADVANTAGE (WNR) 2008 1100 4 MON (WNR) UCARE MCR MEDICARE MCR Sep 29, [id number] [phone] MILES HANSON SI PATIENT (WNR) ADVANTAGE (WNR) 2019 003 00 5 MON [facility]ARE MEDICARE MCR Sep 29, [id number] [phone] Ihsan DURAN I PATIENT [facility] (WNR) 2010 [id number] MON [facility] (WNR) Selected Encounter This section includes the information on record at [place] for the Encounter. Date/Time Encounter Type Encounter Reason Provider Source Description Mar 01, 2022 REM INTERROG CIED DEVICES ICD-10-CM I63.9 CHARLA, 08:36 AM DEV EVMARY SCRMS Cerebral infarction, HERLINDA unspecified with Provider Comments: CVA - Cerebrovascular accident ([facility] [id number]) IHE Encounter Template Text not used by [place] Assessments - Encounter Diagnoses This section includes the primary and secondary diagnoses documented for the Encounter. Date/Time Primary/Secondary Diagnosis Name Provider Source Diagnosis Mar 01, 2022 PRIMARY Cerebral Neto DUNHAM V A 08:53 AM infarction, [facility] unspecified Plan of Treatment: Future Appointments (+ 6 months) and Future Tests (+/- 45 days) The Plan of Treatment section includes future care activities for the patient from all [place] [facility]. This section includes future appointments and future orders which are active, pending orscheduled.Future Appointments This section includes appointments that were scheduled to occur 6 months from the date of the Encounter, up to a maximum of 20 appointments. The data comes from all [place] treatment facilities. Appointment Date/Time Appointment Type Appointment Facili ty Name Mar 04, 2022 01:30 PM AMBULATORY - [facility] Mar 11, 2022 09:00 AM [facility]ULATORY - [facility] Apr 22, 2022 03:30 PM AMBULATORY [facility] May 06, 2022 10:30 AM [facility]BULATORY - [facility] Social History: Smoking Status (Most current) [...] 2020 10:00 AM VA-TOBACCO FORMER USER MIN [facility] Tobacco Use History This section includes a history of the smoking, or tobacco- related health factors, that were collected on or before the date of the Encounter. The data comes from the [place] facility where the Encounter took place. Date/Time Smoking Status/Tobacco Use Comment [facility] Jun 13, 2020 10:00 AM VA-TOBACCO QUIT 15 YRS OR MORE [facility] May 20, 2019 12:18 PM VA-TOBACCO FORMER USER MIN [facility] May 20, 2019 12:18 PM VA-TOBACCO QUIT 15 YRS OR MORE [facility] Jul 30, 2018 08:31 AM VA-TOBACCO FORMER USER MIN [facility] Jul 30, 2018 08:31 AM VA-TOBACCO QUIT 15 YRS OR MORE [facility] Aug 25, 2017 08:04 AM FORMER TOBACCO USER 7Y OR GREATER [facility] Nov 08, 2016 08:12 AM FORMER TOBACCO USER 7Y OR GREATER [facility] Nov 29, 2015 12:46 PM FORMER TOBACCO USER 7Y OR GREATER [facility] February 23, 2015 12:57 PM FORMER TOBACCO USER 7Y OR GREATER [facility] January 27, 2014 10:10 AM FORMER TOBACCO USER 7Y OR GREATER [facility] Mar 17, 2007 09:11 AM FORMER TOBACCO USER 7Y OR GREATER [facility] Advance Directives: All historical and current [...] Mar 17, 2007 ADVANCE DIRECTIVE ALBERTO RODRIGUEZ [facility] Encounter Notes: All associated encounter notes This section contains the clinical notes associated to the Encounter. Date/Time Encounter Note(s) Provider Source Mar 01, 2022 08:36 CARDIOLOGY DIAGNOSTIC STUDY NOTE: DEMETRIO NEVILLE [facility] AM LOCAL TITLE: CARDIOLOGY ELECTROPHYSIOLOGY NOTE RET STANDARD TITLE: CARDIOLOGY DIAGNOSTIC STUDY NOTE DATE OF NOTE: MAR 01, 2022@08:36 ENTRY DATE: MAR 01, 2022@08:36:29 AUTHOR: JE DUNHAM EXP COSIGNER: URGENCY: STATUS: COMPLETED CARDIOLOGY ELECTROPHYSIOLOGY NOTE Has ADDEN DA Scheduled Summary Report on [employer] Loop without any additional episodes since remote note February 12. Summary report time period January 29 to March 01. Multiple PVCs on presenting EGM. CROW to our clin ic December 2021. Device totals 1 pause (false detection) and 118 afib (likely false). Report available via [facility] [employer]. Indication: Cryptogenic Stroke Patient recently transferred follow-up of [facility]. AUNG Boothe completed CROW consult. /jeffry/ VENKATA ESCUDERO EP Clinical Specialist Signed: 03/01/2022 08:53 04/02/2022 ADDENDUM STATUS: COMPLETED Additional summary report received from 03/01-03/31. No new episodes recorded. Device Totals: 1 Pause 118 AF PVC's 18.5% /jeffry/ ALEJANDRA PORTER RN REGISTERED NURSE Signed: 04/02/2022 07:57
--- OUTSIDE RECORDS SUMMARY | 2022-05-21 11:13 | XMS_ITS | Encounter Summary ---
:1945 Author Organization [facility] rs Address [address] [place] [address] Support Name Relationship Address Phone AIMEE DURAN Unavailable [address] [place] [address] AIMEE DURAN Unavailable Unavailable RENEE, CARLO Unavailable [address] [phone] [place] [address] Insurance Providers: All historical and current Section [...] U-CARE OF MEDICARE MCR Sep 29, [id number] [phone] MILES HANSON SI PATIENT [facility] ADVANTAGE (WNR) 2019 003 00 4 MON (WNR) U-CARE OF MEDICARE MCR Sep 29, [id number] [phone] JANES Nguyen SI PATIENT [facility] (M) (WNR) 2008 1100 4 MON (WNR) U-CARE OF MEDICARE MCR Sep 29, RIVAAB [id number] [phone] JANES Nguyen SI PATIENT [facility] ADVANTAGE (WNR) 2008 1100 4 MON (WNR) UCARE MCR MEDICARE MCR Sep 29, [id number] [phone] MILES HANSON SI PATIENT (WNR) ADVANTAGE (WNR) 2019 003 00 5 MON [facility]ARE MEDICARE MCR Sep 29, [id number] [phone] Ihsan DURAN I PATIENT [facility] (WNR) 2010 [id number] MON [facility] (WNR) Selected Encounter This section includes the information on record at [place] for the Encounter. Date/Time Encounter Type Encounter Description Reason Provider Source Apr 15, 2022 01:00 Outpatient Encounter CN FOLLOW-UP PM IHE Encounter Template Text not used by [place] Plan of Treatment: Future Appointments (+ 6 months) and Future Tests (+/- 45 days) The Plan of Treatment section includes future care activities for the patient from all [place] [facility]. This section includes future appointments and future orders which are active, pending orscheduled.Future Appointments This section includes appointments that were scheduled to occur 6 months from the date of the Encounter, up to a maximum of 20 appointments. The data comes from all [place] treatment [facility]. Appointment Date/Time Appointment Type Appointment Facili ty Name Apr 22, 2022 03:30 PM AMBULATORY - NONE [facility] May 06, 2022 10:30 AM [...] the Encounter. The data comes from all [place] treatment [facility]. Test Date/Time Test Type Test Details Facility Name May 06, 2022 10:43 AM Consult Order PROSTHETICS REQUEST Cons M [facility] [employer] Social History: Smoking Status (Most current) and Tobacco Use (All prior to encounter date) This section includes the most current, and the historical, smoking and tobacco-related health factors from the [place] facility where the Encounter took place.Current Smoking Status This section includes the most current smoking, or tobacco-related health factor, from the [place] facility where the Encounter took place. Date/Time Current Smoking Status Comment Facility Jun 13, 2020 10:00 AM [place]-TOBACCO [facility] Tobacco Use History This section includes a history of the smoking, or tobacco- related health factors, that were collected on or before the date of the Encounter. The data comes from the [place] facility where the Encounter took place. Date/Time Smoking Status/Tobacco Use Comment [facility]il [facility] Jun 13, 2020 10:00 AM [place]-TOBACCO QUIT 15 YRS OR MORE [facility] May 20, 2019 12:18 PM VA-TOBACCO FORMER USER MIN [facility] May 20, 2019 12:18 PM VA-TOBACCO QUIT 15 YRS OR MORE [facility] Jul 30, 2018 08:31 AM VA-TOBACCO FORMER USER MIN [facility] Jul 30, 2018 08:31 AM VA-TOBACCO QUIT 15 YRS OR MORE [facility] Aug 25, 2017 08:04 AM FORMER TOBACCO USER 7Y OR GREATER [facility] Nov 08, 2016 08:12 AM FORMER TOBACCO USER 7Y OR GREATER [facility] Nov 29, 2015 12:46 PM FORMER TOBACCO USER 7Y OR GREATER [facility] February 23, 2015 12:57 PM FORMER TOBACCO USER 7Y OR GREATER [facility] January 27, 2014 10:10 AM FORMER TOBACCO USER 7Y OR GREATER [facility] Mar 17, 2007 09:11 AM FORMER TOBACCO USER 7Y OR GREATER [facility] Advance Directives: All historical and [...] Mar 17, 2007 ADVANCE DIRECTIVE ALBERTO RODRIGUEZ [facility] Encounter Notes: All associated encounter notes This section contains the clinical notes associated to the Encounter. Date/Time Encounter Note(s) Provider Source Apr 15, 2022 01:55 PM HOME HEALTH NOTE: BETSY JIMENEZ [facility] LOCAL TITLE: [facility] PROGRESS NOTE STANDARD TITLE: HOME HEALTH NOTE DATE OF NOTE: APR 15, 2022@13:55 ENTRY DATE: APR 15, 2022@13:55:43 AUTHOR: BETSY JIMENEZ EXP COSIGNER: URGENCY: STATUS: COMPLETED [facility] PROGRESS NOTE Has ADDENDA Beth is participating in the [place] CN Pro gram. He has been determined to be LTC appropriate and is residing at [facility]. Per the [place] MB Contract, Dorinda venegas's PC needs will be managed by his [facility] provider and care team. Should he dc from the [facility] Program, he may elect to resume [facility] PC. Please remove from [place] PC panel. Thank you, /jeffry/ BETSY J BARBARA, black jack dealer Health Nurse Coordinator Signed: 04/15/2022 13:57 Receipt Acknowledged By: * AWAITING SIGNATURE * CRUZ FERNANDEZ * AWAITING SIGNATURE * CHAPIS REBOLLAR 04/15/2022 14:14 /jeffry/ Anders Cline D.O. Staff Physician 04/15/2022 ADDENDUM STATUS: COMPLETED Medications discontinued as pt at [place]. /jeffry/ Anders Cline D.O. Staff Physician Signed: 04/15/2022 14:16 Apr 15, 2022 01:00 PM [facility] CARE NOTE: BETSY JIMENEZ [facility] LOCAL TITLE: [facility] STATUS REPORT STANDARD TITLE: [facility] CARE NOTE DATE OF NOTE: APR 15, 2022@13:00 ENTRY DATE: APR 15, 2022@13:00:30 AUTHOR: BETSY JIMENEZ EXP COSIGNER: URGENCY: STATUS: COMPLETED SUBJECT: March [facility] PROGRAM STATUS RE [facility]: [facility] contact: PROFILE Date admitted to the [facility]: 12.28.2021 Primary diagnosis related to [facility] care: ADL dependency d/t CVA 02.19.22 [facility] Therapy Auth: 76 y/o with PMHx of DM II, COPD, Bladder Cancer and HTN with 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 He is now in SNF for ongoing patience ab. Previously living at home.He has been working with OT/PT for 8 weeks and has not made much progress, minimal in the last 4 weeks. Will begi n transition to [facility]. Type of Contract [place] and [facility] contract start date: 12.28 Eligible for special mode transportation: Yes TYPE OF REVIEW Riuo-bn-[id number] visit with , family, and/or staff at [facility] deferred d/t community COVID transmission rates. Clinical chart review completed by [place] Nursing on Mar. REFERENCE PERIOD: 02.28.22--04.15.22 *[facility] EMR reviewed; data below may contain exerts of [facility] staff documentation that have been copied and pasted as responses. missed scheduled [facility] GI appt today d/t CN unable to contact son for transport. Beth's son has communicated to [facility] that he is S imon's #1 POC and will be transporting and accompanying [facility]. Beth requires an attendant for appts d/t dementia/safety. [facility] staff report difficulty contacting son on mu ltiple occasions. Beth has an upcoming appt 04.17.22 at [place]; [facility] is unsure if son will be accompanying/transporting him to that appt. [facility] is unable to provide staff to attend med castro ts with Beth. ADvised [facility] [place] Call Center and transportation contact info. Also suggested that [facility] staff attempt to contact Beth's other designated contacts to discuss plan in regards to coordinat ion of his med appts going forward. Offered option for community based appt s to assist with attendance. AND/OR FAMILY SATISFACTION AND OBSERVATI ON and/or family is satisfied with care:(i ncluding satisfaction with food, environment, staff, etc.) No documented or reported c/o. [facility] has access to social and spiritual acti vities: No documented or reported c/o. Staff is courteous and treats with dign ity: No documented or reported c/o. has adjusted to care setting: No documented or reported c/o. Concerns and/or complaints by [facility] and/or fa r[place]ak? No documented or reported c/o. CLINICAL REVIEW Describe current and/or changes in status. Inclu de interventions. 1. Mental status or cognition: BIMS 13, A/O, ab le to make needs known 2. Mood and/or behaviors: PHQ9 = 1 Can be verbally aggressive towards staff and fam emile. 3. Elopement: No 4. Physical and/or chemical restraints: No 5. Activities of daily living assistance: Ext A x2 6. Bladder and bowel continence: N/A 7. Pain: Denies Scheduled Tylenol effective. Staff reinaldo nues to observe pain control and offer non pharmalogical interventions. 8. Falls (Date, describe, & injury): No 9. Nutrition(Unplanned weight loss greater than 5% in last 30 days, hydration, swallowing, etc.): No 10. Most recent weight: 186 lbs Date: 04.13.22 11. Skin (Pressure ulcer and/or other skin cond itions): No 12. Therapy (Physical therapy, Occupational the rapy or Speech Therapy): Yes [place] authorization in place? Yes 13. Provider visits: Yes [facility] 14. Emergency Room/Hospitalizations: No 15. Medications error(s) resulting in injury: N o 16. Suspected and/or confirmed abuse and/or neg lect: No 17. Minimum Data Set Assessment Reference Date: 03.27.22 Resource Utilization Group: CD1 18. Individualized care plan: Yes 19. [facility] has continued need for [facility] level of care: Yes Continues to require Extensive Assist for ADL's. PLAN: Beth to remain at [facility] for LTC; requires support d/t cognitive impairment and ADL dependency. Communication to [place] PCP; request to remove veter an from [place] PCP panel as he is participating in [facility] Program; his PC needs are being managed by the [facility] PCP and staff. Assist [facility]/ prn /es/ BETSY JIMENEZ RN Community Health Nurse Coordinator Signed: 04/15/2022 13:55
--- OUTSIDE RECORDS SUMMARY | 2022-05-21 11:13 | XMS_ITS | Encounter Summary ---
:1945 Author Organization [facility] rs Address [address] [place] [address] Support Name Relationship Address Phone AIMEE DURAN Unavailable [address] [place] [address] AIMEE DURAN Unavailable Unavailable RENEECARLO HANSON Unavailable [address] [phone] [place] [address] Insurance Providers: All historical and current Section [...] U-CARE OF MEDICARE MCR Sep 29, [id number]_ [id number] [phone] MILES HANSON SI PATIENT [facility] ADVANTAGE (WNR) 2019 003 00 4 MON (WNR) U-CARE OF MEDICARE MCR Sep 29, [id number] [phone] JANES Nguyen SI PATIENT [facility] (M) (WNR) 2008 1100 4 MON (WNR) U-CARE OF MEDICARE MCR Sep 29, [id number] [id number] [phone] JANES Nguyen SI PATIENT [facility] ADVANTAGE (WNR) 2008 1100 4 MON (WNR) [facility] MCR MEDICARE MCR Sep 29, [id number]_ [id number] [phone] MILES HANSON SI PATIENT (WNR) ADVANTAGE (WNR) 2019 003 00 5 MON [employer] MEDICARE MCR Sep 29, [id number] [phone] Ihsan DURAN I PATIENT [facility] (WNR) 2010 [id number] MON [facility] (WNR) Selected Encounter This section includes the information on record at [place] for the Encounter. Date/Time Encounter Type Encounter Description Reason Provider Source Apr 12, 2022 07:19 Outpatient Encounter CIED DEVICES AM IHE Encounter Template Text not used by [place] Plan of Treatment: Future Appointments (+ 6 months) and Future Tests (+/- 45 days) The Plan of Treatment section includes future care activities for the patient [facility] This section includes future appointments and future orders which are active, pending orscheduled.Future Appointments This section includes appointments that were scheduled to occur 6 months from the date of the Encounter, up to a maximum of 20 appointments. The data comes from all [place] treatment [facility]. Appointment Date/Time Appointment Type Appointment Facili ty Name Apr 22, 2022 03:30 PM AMBULATORY - NONE [facility] May 06, 2022 10:30 AM AMBULATORY - REHAB MEDICINE [facility] Active, Pending, and [...] The data comes from all [place] treatment [facility]. Test Date/Time Test Type Test Details Facility Name May 06, 2022 10:43 AM Consult Order PROSTHETICS REQUEST Cons M [facility] [employer] Social History: Smoking Status (Most current) [...] 2020 10:00 AM VA-TOBACCO FORMER USER [facility] Tobacco Use History This section includes a history of the smoking, or tobacco- related health factors, that were collected on or before the date of the Encounter. The data comes from the [place] facility where the Encounter took place. Date/Time Smoking Status/Tobacco Use Comment [facility] Jun 13, 2020 10:00 AM [...] this document. The data comes from all [facility]. Date Advance Directives Provider Source Mar 17, 2007 ADVANCE DIRECTIVE ALBERTO RODRIGUEZ [facility] Encounter Notes: All associated encounter notes This section contains the clinical notes associated to the Encounter. Date/Time Encounter Note(s) Provider Source Apr 12, 2022 07:19 CARDIOLOGY DIAGNOSTIC STUDY NOTE: DEMETRIO NEVILLE [facility] AM LOCAL TITLE: CARDIOLOGY ELECTROPHYSIOLOGY NOTE RET STANDARD TITLE: CARDIOLOGY DIAGNOSTIC STUDY NOTE DATE OF NOTE: APR 12, 2022@07:19 ENTRY DATE: APR 12, 2022@07:19:42 AUTHOR: JE DUNHAM EXP COSIGNER: URGENCY: STATUS: COMPLETED CARDIOLOGY ELECTROPHYSIOLOGY NOTE Has ADDEN DA Unscheduled Event Report 03/29 02/17 on Medtronic Loop with 1 new AF episode & 2 new hugo episodes. AF episode #145 detected 04/07/2022 at 1:15, dura tion 2 min. Please review AF episode #145, irregular ECG wit h ectopy. Artificial Intelligence has ruled out multiple A F episodes in the past. Hugo ECGs appear to be under sensed QRS s/p PVC s. History of false AF and paus es, reprogrammed to avoid under sensing in the past. Multiple PVCs on presenting EGM. CROW to our clin ic December 2021. Device totals 1 pause (false detection), 2 Hugo (false) and 119 afib (likely false). Report available via [facility]. Indication: Cryptogenic Stroke Patient recently transferred follow-up of [facility]. AUNG Boothe completed CROW consult. Will tag Dr. Yeung on consult to please review possi ble AF episode. /es/ CHANTELLE DUNHAM EPCS EP Clinical Specialist Signed: 04/12/2022 07:36 Receipt Acknowledged By: * AWAITING SIGNATURE * REEMA COTO 04/12/2022 ADDENDUM STATUS: COMPLETED Medtronic review of AF Episode The samp le appears to be variability caused by ectopy not AF in my opinion. /es/ VENKATA ESCUDERO EP Clinical Specialist Signed: 04/15/2022 08:05
--- OUTSIDE RECORDS SUMMARY | 2022-05-21 11:13 | XMS_ITS | Encounter Summary ---
:1945 Author Organization [facility] rs Address [address] [place] [address] Support Name Relationship Address Phone AIMEE DURAN Unavailable [address] [place] [address] AIMEE DURAN Unavailable Unavailable RENEE CARLO Unavailable [address] [phone] [place] [address] Insurance Providers: All historical and current Section [...] U-CARE OF MEDICARE MCR Sep 29, [id number]_ [id number] [phone] MILES HANSON SI PATIENT [facility] ADVANTAGE (WNR) 2019 003 00 4 MON (WNR) U-CARE OF MEDICARE MCR Sep 29, [id number] [phone] JANES Nguyen SI PATIENT [facility] (M) (WNR) 2008 1100 4 MON (WNR) U-CARE OF MEDICARE MCR Sep 29, RIVAAB [id number] [phone] JANES Nguyen SI PATIENT [facility] ADVANTAGE (WNR) 2008 1100 4 MON (WNR) [facility]ARE MCR MEDICARE MCR Sep 29, [id number]_ [id number] [phone] MILES HANSON SI PATIENT (WNR) ADVANTAGE (WNR) 2019 003 00 5 MON [facility] MEDICARE MCR Sep 29, [id number] [phone] RENEE,S I PATIENT [facility] (WNR) 2010 [id number] MON [facility] ([facility]) Selected Encounter This section includes the information on record at [place] for the Encounter. Date/Time Encounter Type Encounter Reason Provider Source Description Mar 11, 2022 WHEELCHAIR WHEELCHAIR & ICD-10-CM SIENNA THURSTON 09:00 AM MNGMENT TRAINING ADVAN MOBILITY R53.1 Weakness with Provider Comments: Weakness IHE Encounter Template Text not used by [facility] Assessments - Encounter Diagnoses This section includes the primary and secondary diagnoses documented for the Encounter. Date/Time Primary/Secondary Diagnosis Name Provider Source Diagnosis Mar 11, 2022 PRIMARY Weakness SIENNA THURSTON [facility] 10:41 AM [facility] Plan of Treatment: Future Appointments (+ 6 months) and Future Tests (+/- 45 days) The Plan of Treatment section includes future care activities for the patient from all [place] [facility]. This section includes future appointments and future orders which are active, pending orscheduled.Future Appointments This section includes appointments that were scheduled to occur 6 months from the date of the Encounter, up to a maximum of 20 appointments. The data comes from all [place] treatment facilities. Appointment Date/Time Appointment Type Appointment Facili ty Name Apr 22, 2022 03:30 PM AMBULATORY - NONE [facility] May 06, 2022 10:30 AM AMBULATORY - RE[facility]AB MEDICINE [facility] Social History: Smoking Status (Most current) and Tobacco Use (All prior to encounter date) This section includes the most current, and the historical, smoking and tobacco-related health factors from the [place] facility where the Encounter took place.Current Smoking Status This section includes the most current smoking, or tobacco-related health factor, from the [place] facility where the Encounter took place. Date/Time Current Smoking Status Comment Facility Jun 13, 2020 10:00 AM VA-TOBACCO FORMER USER MIN [facility] Tobacco Use History This section includes a history of the smoking, or tobacco- related health factors, that were collected on or before the date of the Encounter. The data comes from the [place] facility where the Encounter took place. Date/Time Smoking Status/Tobacco Use Comment [facility] Jun 13, 2020 10:00 AM [place]-TOBACCO QUIT 15 YRS OR MORE [facility] May 20, 2019 12:18 PM [place]-TOBACCO FORMER USER [facility] May 20, 2019 12:18 PM [place]-TOBACCO QUIT 15 YRS OR MORE [facility] Jul 30, 2018 08:31 AM VA-TOBACCO FORMER USER [facility] Jul 30, 2018 08:31 AM [place]-TOBACCO QUIT 15 YRS OR MORE [facility] [...] ALL of a patient's completed or amended [place] Advance and Rescinded Directives. The entries below indicate that a directive exists for the patient, but an actual copy is not included with this document. The data comes from all [place] facilities. Date Advance Directives Provider Source Mar 17, 2007 ADVANCE DIRECTIVE ALBEROT RODRIGUEZ [facility] Encounter Notes: All associated encounter notes This section contains the clinical notes associated to the Encounter. Date/Time Encounter Note(s) Provider Source Mar 11, 2022 08:21 AM OCCUPATIONAL THERAPY CONSULT: SIENNA THURSTON [facility] LOCAL TITLE: OCCUPATIONAL THERAPY CONSULT STANDARD TITLE: OCCUPATIONAL THERAPY CONSULT DATE OF NOTE: MAR 11, 2022@08:21 ENTRY DATE: MAR 11, 2022@08:21:36 AUTHOR: SIENNA THURSTON EXP COSIGNER: URGENCY: STATUS: COMPLETED OCCUPATIONAL THERAPY CONSULT Has ADDENDA * OCCUPATONAL THERAPY TELEHEALTH ADVANCED MOBILITY ASSESSMENT Referring provider: SANCHEZ HENDERSON Diagnosis for which patient is referred to OT: CVA Consult request: custom MWC Precautions: R beverly Encounters: -OT Evaluation - Low Complexity (1): 20m -Wheelchair management (2): 28m ASSESSMENT: Vet is a 76 yo male referred to telehealth cust seating and mobility for assessment of: a custom manual whee lchair. The currently resides in a [facility] ([facility], Admit geovanny 12/28/21) post-CVA. The currently uses a [facility] owned standard MWC with L beverly propulsion and is lift dependent for all transfers. The has made no progress with [facility] therapy and has voiced a vidya ute to return home as soon as possible to live with his . Per discussion with the [facility] OT, this g oal is likely unrealistic at this time given his level of function and suppor t required. During today's session, we discussed a [facility] in-detail including tilt- in-space and beverly propulsion. The is abl e to propel with his L side, although is limited by the weight and ill-fittin g dimensions of the current borrowed MWC. At this time, a [id number]-ui-[id number] MWC is appropriate with a gel based cushion to assist with pain management, posturing, pressure reduction, and push efficiency. Upon receiving the quote, a consult will be ana baylee to prosthetics. Once the custom MWC arrives to [facility], an email will be sent to the [facility] OT and WC vendor to coordinate the final fitting, issuance , and training. RECOMMENDATIONS: -Kristie Mckinney (16x18) - will update upon receiv ing a quote -Jon Fusion cushion (16x18) PLAN: Royal to RTC for one 60 min f/u session when david walker arrives for training, customization, and issuance of device. SHORT TERM GOAL TO BE MET BY: 1. Vet will complete final fitting, trial, and i ssuance of power mobility in- clinic demonstrating improve d posturing, pain reduction, pressure reduction, and verbalize understanding of safety and proper seng ntanence. EDUCATION ON TREATMENT PLAN: Patient, Family, Other indicates readiness to l earn, verbalizes understanding,agreement and satisfaction with t he treatment plan. Denies further questions. 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 (ICD-9-CM 600.00) Asthma ([facility] [id number]) Diabetic retinopathy ([facility] [id number]) Type 2 diabetes mellitus ([facility] [id number]) Umbilica l hernia ([facility] [id number]) Obstructive sleep apnea ([facility] [id number]) Obesity ( ICD-9-CM 278.00) Anemia ([facility] [id number]) Rosacea ([facility] [id number]) Carcinoma of bladder ([facility] [id number]) Depression ([facility] [id number]) Congestive heart failure ([facility] [id number]) CVA - Ce rebrovascular accident ([facility] [id number]) SUBJECTIVE: He's really made no progres s, he is a mynor lift for transfers, he think he can walk...No use of R UE at all. Core strength isn' t great...Probably a tilt-in- space...He has poor awareness of the R side. -Daniele villagomez's [facility] OT Identified concerns/problems with wheelchair use : -Hurts in tailbone -Currently able to tolerate ~1 hr. Identified goal(s) with wheelchair use: -Increase comfort -Highly mobile chair Easy to get around with -Return home to as soon as possibl e. Significantly impaired insight into functional deficits. CONTEXT SOCIAL HISTORY/HOME ENVIRONMENT: Lives: alone Primary Support System: [facility] staff Lives in: [employer] [place] [facility]. Air cushions not rec ommended. Home accessibility issues: No concerns noted. PRIOR LEVEL OF INDEPENDENCE: Amada's [facility] OT reports: -Transferring: Dependent -Mynor lift -Mobility: Mod I -Slow L side beverly propulsion -Driving: Dependent Seating and mobility owned: -Facility owned high back [employer] Tracer SX5 ( 18x16) PAIN ASSESSMENT: Pain Present: Yes If pain present intensity: buttock pain 8/10. OBJECTIVE: Vet arrives to session seated in a facility high back recline standard [facility] (18x16) with [facility] OT present. Ax2 required for re positioning. Mynor lift dependent. Self-propels in-clinic using L beverly p ropulsion. Very short L limb propulsion. LUE primarily used for force product ion with LLE used for directional management. Measurements: -Height: 74.5 in [189.2 cm] (05/15/2021 09:36) -Weight: 214 lb [97.07 kg] (10/11/2021 09:26) -190# reported per vet All measurements obtained by the telepre josue with verbal assistance provided by [facility]. Shoulder width = __16___ Middle deltoid (middle of shoulder) to middle d eltoid (middle of shoulder). Take measurement in-front of the ind ividual. Chest width = _13.5____ Axilla (armpit) to axilla (armpit). Take measur ement in-front of the individual. Hip width = _15____ Widest part of the hips including adipose tissu e (body fat). Take measurement in-front of the individual. Top of head height = _33____ Top of sitting surface (or bottom of buttocks) to the crown (top) of the head. Take measurement behind the indivi dual. Shoulder height = __22.5___ Top of sitting surface (or bottom of buttocks) to acromion process (top of shoulder). Take measurement behind the individual. Axilla height = __19 Top of sitting surface (or bottom of buttocks) to axilla (armpit). Take measurement behind the individual Elbow height = _4____ Top of sitting surface (bottom of upper leg) to bottom of elbow bent to 90 degrees. Take measurement at the side of the individual. Upper leg length = _21____ Back of buttock to popliteal fossa (back of kne e). Take measurement at the side of the individual. Lower leg length = __19.5___ Bottom of desired footwear to popliteal fossa ( back of knee). Take measurement at the side of the individual. Current wheelchair measurements: Foot clearance = _0____ Floor to bottom of wheelchair footplate. -L beverly propelling currently. Wheelchair width = __18___ Width of the seat sling. Inside armrest to insi de armrest. Wheelchair depth = _16____ Depth of the seat sling. Cushion height = __3___ Bottom of the cushion to top of cushion with im mersion ( sitting on the cushion) -Jon Fusion (18x16) Front [id number]-qs-fhzrw height = __16.5___ Floor to wheelchair seat sling on the front of the wheelchair. Popliteal clearance = _4.5____ Space between the front of the cushion and the back of the knee. Seated Posture: -Obliquity: mild R obliquity -Rotation: mild R rotation -Pelvic Tilt: mild. Ax2 to reposition. -Scoliosis: none noted. -Femur Support: inadaquete. 4.5 clearance. Sensation and Skin Integrity: -No hx of PI per vet. Giovanni Scale for Predicting Pressure Sore Risk: Sensory Perception: ___Completed limited (1) ___Very limited (2) _x__Slightly limited (3) ___No impairment (4) Moisture: ___Constantly moist (1) _X__Often moist (2) - incontinent of both bowel and bladder ___Occassionaly moist (3) ___Rarely moist (4) Activity: ___Bedfast (1) _x__Chairfast (2) ___Walks occasionally (3) ___Walks frequently (4) Mobility: ___Completely immobile (1) _x__Very limited (2) - Max A from OT to reposit ion ___Slightly limited (3) ___No limitations (4) Nutrition: ___Very poor (1) ___Probably inadequate (2) ___Adequate (3) _x__Excellent (4) Friction and Shear: _x__Problem (1) ___Potential problem (2) ___No apparent problem (3) Giovanni Score Scale: ___Very high risk (6-9) ___High risk (10-12) _x__Moderate risk (13-14) ___Mild risk (15-18) ___No risk (19-23) Source: Gabriela Davila & Patience Hernandez [facility] 1988. Reprinted with permission. All rights reserved. OCCUPATIONAL THERAPY EVALUATION COMPLEXITY Identifying and reporting the complexity level o f an evaluation focuses on the first three of these factors--profile and hi story, assessment and determination of deficts, and clinical decision making. These three factors must be scored and defensible documentation wr itten to support the choice of a level. (Information taken from: https://www .aota.org) PROFILE AND HISTORY (including chart view) Brief history of medical and/or therapy records relating to the presenting problem (low complexity) ASSESSMENT & PERFORMANCE DEFICITS (select all th at apply): Physical: strength, mobility 1-3 performance deficits (Low complexity) LEVEL OF CLINICAL DECISION MAKING Commorbidities affect occupational performance: Yes (moderate or high complexity) Modifications of tasks or assistance to enable completion of evaluation: Not necessary (Low complexity) Problem-focused assessment(s), consideration of a limited number of treatment options, presents with no comorbidities and miriam fication of tasks or assistance is not necessary.(Low complexity) LOW COMPLEXITY Brief history of medical/or therapy records relating to the presenting problem. An assessement(s) that identifies 1-3 performanc e deficits that result in activity limitation and/or participating restric tions. Includes analysis of the occupational profile, a nalysis of date from problem- focused assessment(s), and consideration of a li mited number of treatment options. Patient presents with no c omorbidities that affect occupational performance. Modification of tasks or assistance with assessm ent(s) is not necessary to enable completion of evaluation component. /es/ Tad Wendy Thurston, OTR/L, ATP OCCUPATIONAL THERAPIST Signed: 03/11/2022 10:41 03/11/2022 ADDENDUM STATUS: COMPLETED CVT Documentation- Confirmed the following prior to start of visit: - identified by Full name and Full Social Security number. -Royal has provided verbal consent to use [employer] ([email or web address]) and was informed of their right to request a face-to-fac e visit instead at any time. - states he/she is in a safe and private environment suitable for the Telehealth encounter. -Visit conducted by telehealth into the home usi ng: -Laptop Email: [email or web address] Troubleshooting required during visit: NA Others present: DELROY Davies OT Location of patient during session: [place] [id number] Temporary Address Start: Dec Temporary Address Stop: Emergency phone number (e911): [phone] Veterans Crisis Line: & press #1 or text 996356 [facility] [employer] Help Desk ([employer] TH[employer]): [phone] or [phone]. /es/ Tad R Thurston, OTR/Sunil, ATP OCCUPATIONAL THERAPIST Signed: 03/11/2022 10:43 03/11/2022 ADDENDUM STATUS: COMPLETED Kristie Mckinney (quote #: [id number]) -0-55 degrees -WC 19 -16x18 -5x1 poly -16.5 FSTF (2 drop seat) -24 mag 5 spoke rear -70 degree swing in/out -ext. tube long -Heel loops -Tall stroller back post -L full classic pad armrest -R 14 Arm trough -Root beer color -Army Patch -Jon Fusion RP (16x18) -Backrest: [id number] -10 plush pad w/ axys mount /jeffry/ JORGE Juárez/Sunil, ATP OCCUPATIONAL THERAPIST Signed: 03/11/2022 11:14
--- OUTSIDE RECORDS SUMMARY | 2022-05-21 11:14 | XMS_ITS | Encounter Summary ---
:1945 Author Organization [facility] rs Address [address] [place] [id number] Support Name Relationship Address Phone AIMEE DURAN Unavailable [id number] [place] [address] AIMEE DURAN Unavailable Unavailable RENEECARLO HANSON Unavailable [address] [phone] [place] [address] Insurance Providers: All historical and current Section [...] U-CARE OF MEDICARE MCR Sep 29, [id number]_ [id number] [phone] MILES HANSON SI PATIENT [facility] ADVANTAGE (WNR) 2019 003 00 4 MON (WNR) U-CARE OF MEDICARE MCR Sep 29, [id number] [phone] JANES Nguyen SI PATIENT [facility] (M) (WNR) 2008 1100 4 MON (WNR) U-CARE OF MEDICARE MCR Sep 29, [id number] [phone] JANES Nguyen SI PATIENT [facility] ADVANTAGE (WNR) 2008 1100 4 MON (WNR) [facility] MCR MEDICARE MCR Sep 29, [id number]_ [id number] [phone] MILES HANSON SI PATIENT (WNR) ADVANTAGE (WNR) 2019 003 00 5 MON [facility] MEDICARE MCR Sep 29, [id number] [phone] Ihsan DURAN I PATIENT [facility] (WNR) 2010 [id number] MON [facility] (WNR) Selected Encounter This section includes the information on record at [place] for the Encounter. Date/Time Encounter Type Encounter Reason Provider Source Description Apr 23, 2022 REM INTERROG CIED DEVICES ICD-10-CM I63.9 DONALD EPPERSON 07:40 AM DEV EVAL SCRMS Cerebral infarction, unspecified with Provider Comments: Cerebral infarction IHE Encounter Template Text not used by PR Assessments - Encounter Diagnoses This section includes the primary and secondary diagnoses documented for the Encounter. Date/Time Primary/Secondary Diagnosis Name Provider Source Diagnosis Apr 23, 2022 PRIMARY Cerebral DONALD EPPERSON [facility] 07:52 AM infarction, HCS unspecified Plan of Treatment: Future Appointments (+ 6 months) and Future Tests (+/- 45 days) The Plan of Treatment section includes future care activities for the patient [facility] This section includes future appointments and future orders which are active, pending orscheduled.Future Appointments This section includes appointments that were scheduled to occur 6 months from the date of the Encounter, up to a maximum of 20 appointments. The data comes from all PR treatment [facility]. Appointment Date/Time Appointment Type Appointment Facili ty Name May 06, 2022 10:30 AM AMBULATORY - REHAB MEDICINE [facility] Active, Pending, and Scheduled [...] the Encounter. The data comes from all PR treatment [facility]. Test Date/Time Test Type Test Details Facility Name May 06, 2022 10:43 AM Consult Order PROSTHETICS REQUEST Cons M [facility] Cnc Programmer's Choice Social History: Smoking Status (Most current) and Tobacco Use (All prior to encounter date) This section includes the most current, and the historical, smoking and tobacco-related health factors from the PR facility where the Encounter took place.Current Smoking Status This section includes the most current smoking, or tobacco-related health factor, from the PR facility where the Encounter took place. Date/Time Current Smoking Status Comment Facility Jun 13, 2020 10:00 AM VA-TOBACCO FORMER USER [facility] Tobacco Use History This section includes a history of the smoking, or tobacco- related health factors, that were collected on or before the date of the Encounter. The data comes from the PR facility where the Encounter took place. Date/Time Smoking Status/Tobacco Use Comment Facil ity Jun 13, 2020 10:00 AM VA-TOBACCO QUIT 15 YRS OR MORE [facility] May 20, 2019 12:18 PM VA-TOBACCO FORMER USER [facility] May 20, 2019 12:18 PM VA-TOBACCO QUIT 15 YRS OR MORE [facility] Jul 30, 2018 08:31 AM VA-TOBACCO FORMER USER [facility] Jul 30, 2018 08:31 AM VA-TOBACCO QUIT 15 YRS OR MORE [facility] Aug 25, 2017 08:04 AM FORMER TOBACCO USER 7Y OR GREATER [facility] Nov 08, 2016 08:12 AM FORMER TOBACCO USER 7Y OR GREATER [facility] Nov 29, 2015 12:46 PM FORMER TOBACCO USER 7Y OR GREATER [facility] February 23, 2015 12:57 PM FORMER TOBACCO USER 7Y OR GREATER [facility] January 27, 2014 10:10 AM FORMER TOBACCO USER 7Y OR GREATER [facility] Mar 17, 2007 09:11 AM FORMER TOBACCO USER 7Y OR GREATER [facility] Advance Directives: All historical and current [...] Mar 17, 2007 ADVANCE DIRECTIVE ALBERTO RODRIGUEZ [facility] Encounter Notes: All associated encounter notes This section contains the clinical notes associated to the Encounter. 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 Device totals: 1 pause, 3 hugo and 120 AF episo vidya 1 new hugo and 1 new AF episode. Presenting rhythm is SR with occastional PVC's. Hugo episode not true hugo, the PVC amplitude created undersensing of SR to follow. AF also unlikely true as PA interval can be clearly seen at begining o f episode, but can not be certain on remainder of ecg. Trigeminal PVC's co ntribute to irregularity. Duration of potential AF was 2 min. Will attach pdf and forward to Dr. Yeung to review. /jeffry/ DONALD EPPERSON RNC STAFF NURSE Signed: 04/23/2022 07:52 Receipt Acknowledged By: * AWAITING SIGNATURE * REEMA COTO
--- OUTSIDE RECORDS SUMMARY | 2022-05-21 11:14 | XMS_ITS | Encounter Summary ---
:1945 Author Organization [facility] rs Address [address] [place] [address] Support Name Relationship Address Phone AIMEE DURAN Unavailable [address] [place] [address] AIMEE DRUAN Unavailable Unavailable RENEE CARLO Unavailable [address] [phone] [place] [address] Insurance Providers: All historical and current Section [...] U-CARE OF MEDICARE MCR Sep 29, [id number]_ [id number] [phone] MILES HANSON SI PATIENT [facility] ADVANTAGE (WNR) 2019 003 00 4 MON (WNR) U-CARE OF MEDICARE MCR Sep 29, [id number] [phone] JANES Nguyen SI PATIENT [facility] (M) (WNR) 2008 1100 4 MON (WNR) U-CARE OF MEDICARE MCR Sep 29, [id number] [phone] JANES Nguyen SI PATIENT [facility] ADVANTAGE (WNR) 2008 1100 4 MON (WNR) [facility] MCR MEDICARE MCR Sep 29, [id number]_ [id number] [phone] MILES HANSON SI PATIENT (WNR) ADVANTAGE (WNR) 2019 003 00 5 MON [facility] MEDICARE MCR Sep 29, [id number] [phone] RENEE,S I PATIENT [facility] (WNR) 2010 [id number] MON [facility] (WNR) Selected Encounter This section includes the information on record at [place] for the Encounter. Date/Time Encounter Type Encounter Reason Provider Source Description May 06, 2022 WHEELCHAIR WHEELCHAIR & ICD-10-CM SIENNA THURSTON 10:30 AM MNGMENT TRAINING ADVAN MOBILITY R53.1 Weakness with Provider Comments: Weakness IHE Encounter Template Text not used by [facility] Assessments - Encounter Diagnoses This section includes the primary and secondary diagnoses documented for the Encounter. Date/Time Primary/Secondary Diagnosis Name Provider Source Diagnosis May 06, 2022 PRIMARY Weakness SIENNA THURSTON [facility] 11:07 AM [facility] Plan of Treatment: Future Appointments (+ 6 months) and Future Tests (+/- 45 days) The Plan of Treatment section includes future care activities for the patient from all [place] treatmentfacilities. This section includes future appointments and future orders which are active, pending orscheduled.Active, Pending, and Scheduled Orders This section includes [...] Consult Order PROSTHETICS REQUEST Cons M [facility] Laboratory Administrative Director's Choice Social History: Smoking Status (Most current) and Tobacco Use (All prior to encounter date) This section includes the most current, and the historical, smoking and tobacco-related health factors from the [place] facility where the Encounter took place.Current Smoking Status This section includes the most current smoking, or tobacco-related health factor, from the [place] facility where the Encounter took place. Date/Time Current Smoking Status Comment Facility Jun 13, 2020 10:00 AM NM-TOBACCO FORMER USER [facility] Tobacco Use History This section includes a history of the smoking, or tobacco- related health factors, that were collected on or before the date of the Encounter. The data comes from the [place] facility where the Encounter took place. Date/Time Smoking Status/Tobacco Use Comment [facility] Jun 13, 2020 10:00 AM NM-TOBACCO QUIT 15 YRS OR MORE [facility] May 20, 2019 12:18 PM VA-TOBACCO FORMER USER [facility] May 20, 2019 12:18 PM VA-TOBACCO QUIT 15 YRS OR MORE [facility] Jul 30, 2018 08:31 AM VA-TOBACCO FORMER USER [facility] Jul 30, 2018 08:31 AM VA-TOBACCO QUIT 15 YRS OR MORE [facility] Aug 25, 2017 08:04 AM FORMER TOBACCO USER 7Y OR GREATER [facility] Nov 08, 2016 08:12 AM FORMER TOBACCO USER 7Y OR GREATER [facility] Nov 29, 2015 12:46 PM FORMER TOBACCO USER 7Y OR GREATER [facility] February 23, 2015 12:57 PM FORMER TOBACCO USER 7Y OR GREATER [facility] January 27, 2014 10:10 AM FORMER TOBACCO USER 7Y OR GREATER [facility] Mar 17, 2007 09:11 AM FORMER TOBACCO USER 7Y OR GREATER [facility] Advance Directives: All historical and current Section Date Range: From patient's date of to the date document was created. This section includes ALL of a patient's completed or amended [place] Advance and Rescinded Directives. The entries below indicate that a directive exists for the patient, but an actual copy is not included with this document. The data comes from all [place] facilities. Date Advance Directives Provider Source Mar 17, 2007 ADVANCE DIRECTIVE ROWENAMANFREDALBERTO Anjana [facility] Encounter Notes: All associated encounter notes This section contains the clinical notes associated to the Encounter. Date/Time Encounter Note(s) Provider Source May 06, 2022 10:32 AM OCCUPATIONAL THERAPY NOTE: SIENNA THURSTON [facility] LOCAL TITLE: OT-PROGRESS NOTE STANDARD TITLE: OCCUPATIONAL THERAPY NOTE DATE OF NOTE: MAY 06, 2022@10:32 ENTRY DATE: MAY 06, 2022@10:32:26 AUTHOR: SIENNA THURSTON EXP COSIGNER: URGENCY: STATUS: COMPLETED OCCUPATONAL THERAPY TELEHEALTH ADVANCED MOBILITY ASSESSMENT Referring provider: SANCHEZ HENDERSON Diagnosis for which patient is referred to OT: CVA Consult request: custom [facility] Precautions: R beverly Encounters: -Wheelchair management (1): 18m ASSESSMENT: Vet is a 76 yo male referred to telehealth cust seating and mobility for assessment of: a custom manual wheelchair. The breanna traore currently resides in a [facility] ([facility], Admitted 12/28/21) p ost-CVA. Session today to complete the final fitting, issuance, and education for the custom Quickie Iris and Jon Fusion cushion. The today demilia trated significantly improved posturing and reports no concerns with propulsio n or pain relief. Prosthetics consult have been placed for gel padding to minimize pressure on the RLE legrest hangar. Also, a consult has been placed for a lo nger R armrest to support the RUE. Finally, the 's [facility] OT reque sted educational materials on pressure relief to provide to the 's . An email was sent to the [facility] OT after the session with, Pressure Injury Prevention Leal ndout that details pressure relief strategies, prosthetics information for r epairs, and skin protection information. ISSUED: -Quickie Iris (quote #: [id number]) -0-55 degrees -WC 19 -16x18 -5x1 poly -16.5 FSTF (2 drop seat) -24 mag 5 spoke rear -70 degree swing in/out -ext. tube long -Heel loops -Tall stroller back post -L full classic pad armrest -R 14 Arm trough -18 on order and shipping to [facility] -Root beer color -Army Patch -Jon Fusion RP (16x18) -Backrest: [id number] -10 plush pad w/ axys mount -Jon Fusion cushion (16x18) ON ORDER: -Arm Trough 18 Long - Tracab - Par t #: [id number] -GEL Leg Rest Crnp Cover 5 1/2 (PAIR [facility]) - goBalto.Virtualmin - Product ID : [facility] PLAN: Vet is discharged from OP OT services if no concerns/questions arise in the next 60 days. SHORT TERM GOAL TO BE MET BY: 1. Vet will complete final fitting, trial, and i ssuance of power mobility in- clinic demonstrating improve d posturing, pain reduction, pressure reduction, and verbalize understanding of safety and proper seng ntanence. -MET EDUCATION ON TREATMENT PLAN: Patient and Other indicates readiness to learn, verbalizes understanding,agreement and satisfaction with t he treatment plan. Denies further questions. 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 (ICD-9-CM 600.00) Asthma ([facility] [id number]) Diabetic retinopathy ([facility] [id number]) Type 2 diabetes mellitus ([facility] [id number]) Umbilica l hernia ([facility] [id number]) Obstructive sleep apnea ([facility] [id number]) Obesity ( ICD-9-CM 278.00) Anemia ([facility] [id number]) Rosacea ([facility] [id number]) Carcinoma of bladder ([facility] [id number]) Depression ([facility] [id number]) Congestive heart failure ([facility] [id number]) CVA - Ce rebrovascular accident ([facility] [id number]) SUBJECTIVE: I couldn't ask for a better chair. -Vet CONTEXT SOCIAL HISTORY/HOME ENVIRONMENT: Lives: alone Primary Support System: [facility] staff Lives in: [place] [facility]. Air cushions not rec ommended. Home accessibility issues: No concerns noted. PRIOR LEVEL OF INDEPENDENCE: Vet's [facility] OT reports: -Transferring: Dependent -Mynor lift -Mobility: Mod I -Slow L side beverly propulsion -Driving: Dependent Seating and mobility owned: -Facility owned high back [employer] Tracer SX5 ( 18x16) PAIN ASSESSMENT: Pain Present: no pain noted OBJECTIVE: Vet arrives to session seate d in custom MWC and cushion noting no concerns with use. The was issued the MWC on 04/23/22 with the [facility] Rep and [facility] OT as this provider was out of office unexpe ctedly. Vet demonstrates signficant improved posturing and reports pain r elief. R hip abduction is creating contact with the R legrest hangar. Disc ussed gel padding vs. lateral support at the knee. The 's R arm also wo uld benefit from increased length of support. OT screened shared options an d the gel padding and R 18 armrest will be sent to the [facility] for the OT to in stall. Measurements: -Height: 74.5 in [189.2 cm] (05/15/2021 09:36) -Weight: 214 lb [97.07 kg] (10/11/2021 09:26) -190# reported per vet All measurements obtained by the telepre josue with verbal assistance provided by C. Shoulder width = __16___ Middle deltoid (middle [...] on the cushion) -Jon Fusion (18x16) Front cnhm-qb-zscmd height = __16.5___ Floor to wheelchair seat sling on the front of the wheelchair. Popliteal clearance = _4.5____ Space between the front of the cushion and the back of the knee. Sensation and Skin Integrity: -No hx of [...] (19-23) Source: Gabriela Davila & Patience Hernandez [facility] 1987. Reprinted with permission. All rights reserved. CVT Documentation- Confirmed the following prior to start of visit: - identified by Full name and Full Social Security number. -[place] has provided verbal consent to use [employer] ([employer]) and was informed of their right to request a face-to-fac e visit instead at any time. - states he/she is in a safe and private environment suitable for the Telehealth encounter. -Visit conducted by telehealth into the home usi ng: -Laptop Email: [email or web address] Troubleshooting required during visit: NA Others present: DELROY Davies OT Location of patient during session: [place] [id number] Temporary Address Start: Dec Temporary Address Stop: Emergency phone number (e911): [phone] Veterans Crisis Line: & press #1 or text 502151 [facility] Telehealth Technology Help Desk (NT THD): [phone] or [phone]. /es/ Sienna Thurston OTWendy/Sunil, ATP OCCUPATIONAL THERAPIST Signed: 05/06/2022 11:07
--- OUTSIDE RECORDS SUMMARY | 2022-05-21 11:14 | XMS_ITS | Encounter Summary ---
:[address] [facility] rs Address [address] [place] [address] Support Name Relationship Address Phone AIMEE DURAN Unavailable [address] [place] [address] AIMEE DURAN Unavailable Unavailable RENEE, CARLO Unavailable [address] [phone] [place] [address] Insurance Providers: All historical and current Section [...] U-CARE OF MEDICARE MCR Sep 29, [id number]_ [id number] [phone] MILES HANSON SI PATIENT [facility] ADVANTAGE (WNR) 2019 003 00 4 MON (WNR) U-CARE OF MEDICARE MCR Sep 29, [id number] [phone] JANES Nguyen SI PATIENT [facility] (M) (WNR) 2008 1100 4 MON (WNR) U-CARE OF MEDICARE MCR Sep 29, [id number] [phone] JANES Nguyen SI PATIENT [facility] ADVANTAGE (WNR) 2008 1100 4 MON (WNR) [facility]ARE MCR MEDICARE MCR Sep 29, [id number]_ [id number] [phone] MILES HANSON SI PATIENT (WNR) ADVANTAGE (WNR) 2019 003 00 5 MON [employer]ARE MEDICARE MCR Sep 29, [id number] [phone] Ihsan DURAN I PATIENT [facility] (WNR) 2010 [id number] MON [facility] (WNR) Selected Encounter This section includes the information on record at [place] for the Encounter. Date/Time Encounter Type Encounter Reason Provider Source Description May 15, 2022 CASE MANAGEMENT [facility] FOLLOW-UP ICD-10-CM Z71.89 VERO REBOLLAR 03:17 PM Other specified counseling with Provider Comments: Other specified Counseling IHE Encounter Template Text not used by [place] Assessments - Encounter Diagnoses This section includes the primary and secondary diagnoses documented for the Encounter. Date/Time Primary/Secondary Diagnosis Name Provider Source Diagnosis May 17, 2022 PRIMARY Other specified CHAPIS REBOLLAR [place] 09:49 AM counseling [facility] Social History: Smoking Status (Most current) and Tobacco Use (All prior to encounter date) This section includes the most current, and the historical, smoking and tobacco-related health factors from the [place] facility where the Encounter took place.Current Smoking Status This section includes the most current smoking, or tobacco-related health factor, from the [place] facility where the Encounter took place. Date/Time Current Smoking Status Comment Facility Jun 13, 2020 10:00 AM VA-TOBACCO FORMER USER [facility] Tobacco Use History This section includes a history of the smoking, or tobacco- related health factors, that were collected on or before the date of the Encounter. The data comes from the [place] facility where the Encounter took place. Date/Time Smoking Status/Tobacco Use Comment [facility] Jun 13, 2020 10:00 AM VA-TOBACCO QUIT 15 YRS OR MORE [facility] May 20, 2019 12:18 PM VA-TOBACCO FORMER USER [facility] May 20, 2019 12:18 PM VA-TOBACCO QUIT 15 YRS OR MORE [facility] Jul 30, 2018 08:31 AM VA-TOBACCO FORMER USER [facility] Jul 30, 2018 08:31 [...] ALL of a patient's completed or amended [place] Advance and Rescinded Directives. The entries below indicate that a directive exists for the patient, but an actual copy is not included with this document. The data comes from all [place] facilities. Date Advance Directives Provider Source Mar 17, 2007 ADVANCE DIRECTIVE ROWENAALBERTO SHEARER [facility] Encounter Notes: All associated encounter notes This section contains the clinical notes associated to the Encounter. Date/Time Encounter Note(s) Provider Source May 15, 2022 03:17 PM COMMUNITY ASSISTED CARE NOTE: RJ REBOLLAR [facility] LOCAL TITLE: [facility] STATUS REPORT STANDARD TITLE: COMMUNITY ASSISTED CARE NOTE DATE OF NOTE: MAY 15, 2022@15:17 ENTRY DATE: MAY 15, 2022@15:17:25 AUTHOR: CHAPIS REBOLLAR EXP COSIGNER: URGENCY: STATUS: COMPLETED COMMUNITY ASSISTED PROGRAM STATUS RE [facility] contact: Kenya Veloz RN TYPE OF REVIEW [id number] visit with , family, and/or staff at care home and clinical chart review completed by [place] Social Augustin regalado on Apr. Reference period: 04/15/22-05/16/22 SUMMARY OF VISIT was sleeping during typewriter assembler's visit. Staff report that veterans mood and behavior towards staff is im proving. No concerns or additional needs identified at this time. AND/OR FAMILY SATISFACTION AND OBSERVATI ON [place] and/or family is satisfied with care:(i ncluding satisfaction with food, environment, staff, etc.) Yes has access to social and spiritual acti vities: Yes Staff is courteous and treats with dign ity: Yes has adjusted to care setting: Yes Concerns and/or complaints by [place] and/or fa ronak? No CLINICAL REVIEW Describe current and/or changes in status. Inclu de interventions. 1. Mental status or cognition: BIMS 13/15, A/O, able to make needs known 2. Mood and/or behaviors: PHQ9 10/25 Can be verbally aggressive towards staff and fam emile. 3. Elopement: No 4. Physical and/or chemical restraints: No 5. Activities of daily living assistance: Extens akil assist x2 with grooming, dressing, transferring with ez lift. able to eat with supervision and meal tray set up. 6. Bladder and bowel continence: incontinent of both bowel and bladder 7. Pain: None noted 8. Falls (Date, describe, & injury): No 9. Nutrition(Unplanned weight loss greater than 5% in last 30 days, hydration, swallowing, etc.): No 10. Most recent weight:180.5 Date: 05/15/22 11. Skin (Pressure ulcer and/or other skin cond itions): Yes One open wound to R buttock- abscess dra guevara last week. Two healing skin tears to anterior RLE and one healing skin tear to anterior LLE with no s/sx of infection observed upon inspection. Re ddened groin folds noted bilaterally with zinc cream applied. One area of ecchymosis observed to medial aspect of second digit of R hand measuring approximately 1 cm x 0.2 cm in si ze. 12. Therapy (Physical therapy, Occupational the rapy or Speech Therapy): Yes VA authorization in place? No Outpt Sister Pardeep 13. Provider visits: Yes 04/29/22: RECYCLING ATTENDANT visit 14. Emergency Room/Hospitalizations: Yes 05/09/22: [facility] 15. Medications error(s) resulting in injury: N o 16. Suspected and/or confirmed abuse and/or neg lect: No 17. Minimum Data Set Assessment Reference Date: 03.27.22 Resource Utilization Group: CD1 18. Individualized care plan: Yes 19. has continued need for care home level of care: Yes PLAN: Supervisor Carding will continue routine oversight and assist care coordination as needed. /jeffry/ LORETTA BAZAN ANNUAL CAMPAIGN MANAGER FURNACE TENDER Signed: 05/17/2022 09:49
--- OUTSIDE RECORDS SUMMARY | 2022-05-21 11:14 | XMS_ITS | Encounter Summary ---
:1945 Author Organization [facility] rs Address [address] [place] [address] Support Name Relationship Address Phone AIMEE DURAN Unavailable [address] [place] [address] AIMEE DURAN Unavailable Unavailable RENEE CARLO Unavailable [address] [phone] [place] [address] Insurance Providers: All historical and current Section [...] U-CARE OF MEDICARE MCR Sep 29, [id number]_ [id number] [phone] MILES HANSON SI PATIENT [facility] ADVANTAGE (WNR) 2019 003 00 4 MON (WNR) U-CARE OF MEDICARE MCR Sep 29, [id number] [phone] JANES Nguyen SI PATIENT [facility] (M) (WNR) 2008 1100 4 MON (WNR) U-CARE OF MEDICARE MCR Sep 29, [id number] [phone] JANES Nguyen SI PATIENT [facility] ADVANTAGE (WNR) 2008 1100 4 MON (WNR) UCARE MCR MEDICARE MCR Sep 29, [id number]_ [id number] [phone] MILES HANSON SI PATIENT (WNR) ADVANTAGE (WNR) 2019 003 00 5 MON [facility]ARE MEDICARE MCR Sep 29, [id number] [phone] Ihsan DURAN I PATIENT [facility] (WNR) 2010 [id number] MON [facility] (WNR) Selected Encounter This section includes the information on record at [place] for the Encounter. Date/Time Encounter Type Encounter Description Reason Provider Source Apr 23, 2022 12:30 Outpatient Encounter [facility] IHE Encounter Template Text not used by [place] Plan of Treatment: Future Appointments (+ 6 months) and Future Tests (+/- 45 days) The Plan of Treatment section includes future care activities for the patient from all [place] [facility] This section includes future appointments and future orders which are active, pending orscheduled.Future Appointments This section includes appointments that were scheduled to occur 6 months from the date of the Encounter, up to a maximum of 20 appointments. The data comes from all [facility]. Appointment Date/Time Appointment Type Appointment Facili ty Name May 06, 2022 10:30 AM AMBULATORY - REHAB MEDICINE [facility] Active, Pending, and Scheduled Orders This section includes a listing of several types of active, pending, and scheduled orders, including clinic medications orders, diagnostic test orders, procedure orders and consult orders; where the start date of the order is 45 days before the date of the Encounter or 45 days after the date of the Encounter. The data comes from all [facility]. Test Date/Time Test Type Test Details Facility Name May 06, 2022 10:43 AM Consult Order PROSTHETICS REQUEST Cons Neto [facility] Sweater Designer's Choice Social History: Smoking Status (Most current) and Tobacco Use (All prior to encounter date) This section includes the most current, and the historical, smoking and tobacco-related health factors from the [place] facility where the Encounter took place.Current Smoking Status This section includes the most current smoking, or tobacco-related health factor, from the [place] facility where the Encounter took place. Date/Time Current Smoking Status Comment Facility Jun 13, 2020 10:00 AM AL-TOBACCO FORMER USER [facility] Tobacco Use History This section includes a history of the smoking, or tobacco- related health factors, that were collected on or before the date of the Encounter. The data comes from the [place] facility where the Encounter took place. Date/Time Smoking Status/Tobacco Use Comment [facility] Jun 13, 2020 10:00 AM AL-TOBACCO QUIT 15 YRS OR MORE [facility] May 20, 2019 12:18 PM VA-TOBACCO FORMER USER [facility] May 20, 2019 12:18 PM VA-TOBACCO QUIT 15 YRS OR MORE [facility] Jul 30, 2018 08:31 AM VA-TOBACCO FORMER USER [facility] Jul 30, 2018 08:31 AM AL-TOBACCO QUIT 15 YRS OR MORE [facility] Aug 25, 2017 08:04 AM FORMER TOBACCO USER 7Y OR GREATER [facility] Nov 08, 2016 08:12 AM FORMER TOBACCO USER 7Y OR GREATER [facility] Nov 29, 2015 12:46 PM FORMER TOBACCO USER 7Y OR GREATER [facility] February 23, 2015 12:57 PM FORMER TOBACCO USER 7Y OR GREATER [facility] January 27, 2014 10:10 AM FORMER TOBACCO USER 7Y OR GREATER [facility] Mar 17, 2007 09:11 AM FORMER TOBACCO USER 7Y OR GREATER [facility] Advance Directives: All historical and current Section Date Range: From patient's date of to the date document was created. This section includes ALL of a patient's completed or amended [place] Advance and Rescinded Directives. The entries below indicate that a directive exists for the patient, but an actual copy is not included with this document. The data comes from all [place] facilities. Date Advance Directives Provider Source Mar 17, 2007 ADVANCE DIRECTIVE ALBERTO RODRIGUEZ [facility] Encounter Notes: All associated encounter notes This section contains the clinical notes associated to the Encounter. Date/Time Encounter Note(s) Provider Source Apr 23, 2022 09:22 AM REPORT OF CONTACT: VERITO BOOTHE [place] [facility] LOCAL TITLE: PATIENT CONTACT NOTE STANDARD TITLE: REPORT OF CONTACT DATE OF NOTE: APR 23, 2022@09:22 ENTRY DATE: APR 23, 2022@09:22:16 AUTHOR: VERITO BOOTHE EXP COSIGNER: URGENCY: STATUS: COMPLETED Patient contact Name of : BETH DURAN Name/Relationship of Contact if other than Veter an: Date & Time of Contact: Mar@09:22 Type of Contact: Telephone Reason for Contact: Called and left message with call back number for Abby. Please have her speak with lead. Thank you. /jeffry/ VERITO FERNANDO MSA Lead MSA Signed: 04/23/2022 09:23
--- OUTSIDE RECORDS SUMMARY | 2022-05-21 11:14 | XMS_ITS | Encounter Summary ---
:1945 Author Organization [facility] rs Address [address] [place] [address] Support Name Relationship Address Phone AIMEE DURAN Unavailable [address] [place] [address] AIMEE DURAN Unavailable Unavailable RNEEECARLO HANSON Unavailable [address] [phone] [place] [address] Insurance Providers: All historical and current Section [...] U-CARE OF MEDICARE MCR Sep 29, [id number]_ [id number] [phone] MILES HANSON SI PATIENT [facility] ADVANTAGE (WNR) 2019 003 00 4 MON (WNR) U-CARE OF MEDICARE MCR Sep 29, [id number] [phone] JANES Nguyen SI PATIENT [facility] (M) (WNR) 2008 1100 4 MON (WNR) U-CARE OF MEDICARE MCR Sep 29, [id number] [phone] JANES Nguyen SI PATIENT [facility] ADVANTAGE (WNR) 2008 1100 4 MON (WNR) UCARE MCR MEDICARE MCR Sep 29, [id number]_ [id number] [phone] MILES HANSON SI PATIENT (WNR) ADVANTAGE (WNR) 2019 003 00 5 MON [facility]ARE MEDICARE MCR Sep 29, [id number] [phone] Ihsan DURAN I PATIENT [facility] (WNR) 2010 [id number] MON [facility] (WNR) Selected Encounter This section includes the information on record at [place] for the Encounter. Date/Time Encounter Type Encounter Reason Provider Source Description Apr 29, 2022 REM INTERROG DEV CIED DEVICES ICD-10-CM Neto DUNHAM 07:49 AM EVAL SCRMS Z95.818 ARGARET Presence of other cardiac implants and grafts with Provider Comments: Presence of other cardiac implants and grafts IHE Encounter Template Text not used by [facility] Assessments - Encounter Diagnoses This section includes the primary and secondary diagnoses documented for the Encounter. Date/Time Primary/Secondary Diagnosis Name Provider Source Diagnosis Apr 29, 2022 PRIMARY Presence of Neto DUNHAM V A 07:54 AM other cardiac ARGARET HCS implants and grafts Plan of Treatment: Future Appointments (+ 6 months) and Future Tests (+/- 45 days) The Plan of Treatment section includes future care activities for the patient from all [place] [facility] This section includes future appointments and future orders which are active, pending orscheduled.Future Appointments This section includes appointments that were scheduled to occur 6 months from the date of the Encounter, up to a maximum of 20 appointments. The data comes from all [place] treatment [facility]. Appointment Date/Time Appointment Type Appointment Facili ty Name May 06, 2022 10:30 AM AMBULATORY - REHAB MEDICINE [facility] Active, Pending, and Scheduled Orders This section includes a listing of several types of active, pending, and scheduled orders, including clinic medications orders, diagnostic test orders, procedure orders and consult orders; where the start date of the order is 45 days before the date of the Encounter or 45 days after the date of the Encounter. The data comes from all [place] treatment [facility]. Test Date/Time Test Type Test Details Facility Name May 06, 2022 10:43 AM Consult Order PROSTHETICS REQUEST Cons [facility] Process Excellence Manager's Choice Social History: Smoking Status (Most current) [...] AM VA-TOBACCO FORMER USER [facility] Tobacco Use History This section includes [...] PM VA-TOBACCO FORMER USER [facility] May 20, 2019 12:18 PM VA-TOBACCO QUIT 15 YRS OR MORE [facility] Jul 30, 2018 08:31 AM VA-TOBACCO FORMER USER [facility] Jul 30, 2018 08:31 AM VA-TOBACCO QUIT [...] this document. The data comes from all [place] facilities. Date Advance Directives Provider Source Mar 17, 2007 ADVANCE DIRECTIVE ALBERTO RODRIGUEZ [facility] Encounter Notes: All associated encounter notes This section contains the clinical notes associated to the Encounter. Date/Time Encounter Note(s) Provider Source Apr 29, 2022 07:49 CARDIOLOGY DIAGNOSTIC STUDY NOTE: DEMETRIO [place] [facility] AM LOCAL TITLE: CARDIOLOGY ELECTROPHYSIOLOGY NOTE RET STANDARD TITLE: CARDIOLOGY DIAGNOSTIC STUDY NOTE DATE OF NOTE: APR 29, 2022@07:49 ENTRY DATE: APR 29, 2022@07:49:26 AUTHOR: JE DUNHAM EXP COSIGNER: URGENCY: STATUS: COMPLETED CARDIOLOGY ELECTROPHYSIOLOGY NOTE Has ADDEN DA Unscheduled Event Report 04/29/22 on [employer] Loo p with 1 new AF episode. AF episode #166 detected 04/27/2022 at 17:17, dur ation 2 min, median V rate 91bpm. Please review irregular ECG with ectopy. 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 CROW to our clinic December 2021. Device totals 1 pause (false detection), 3 Hugo (false) and 121 afib (likely false). Report available via [employer]. Indication: Cryptogenic Stroke Patient recently transferred follow-up of loop f [facility]. AUNG Boothe completed CROW consult. Will tag Dr. Yeung to please review possible AF epis ode # [id number]. /es/ VENKATA ESCUDERO EP Clinical Specialist Signed: 04/29/2022 07:54 Receipt Acknowledged By: * AWAITING SIGNATURE * REEMA COTO 05/02/2022 ADDENDUM STATUS: COMPLETED Summary report cleared on [facility] site. Device totals unchanged. /es/ ALEJANDRA PORTER, ALLEY REGISTERED NURSE Signed: 05/02/2022 14:08
--- OUTSIDE RECORDS SUMMARY | 2022-05-21 11:14 | XMS_ITS | Encounter Summary ---
:1945 Author Organization Department [facility] rs Address [address] [place] [address] Support Name Relationship Address Phone AIMEE DURAN Unavailable [id number] [place] [address] AIMEE DURAN Unavailable Unavailable RENEE, CARLO Unavailable [id number] [phone] [place] [address] Insurance Providers: All historical and current Section [...] U-CARE OF MEDICARE MCR Sep 29, [id number] [phone] MILES HANSON SI PATIENT [facility] ADVANTAGE (WNR) [id number] MON (WNR) U-CARE OF MEDICARE MCR Sep 29, [id number] [phone] JANES Nguyen SI PATIENT [facility] (M) (WNR) 2008 [id number] 4 MON (WNR) U-CARE OF MEDICARE MCR Sep 29, [id number] [phone] JANES Nguyen SI PATIENT [facility] ADVANTAGE (WNR) 2008 1100 4 MON (WNR) [employer] MCR MEDICARE MCR Sep 29, [id number]_ [id number] [phone] MILES HANSON SI PATIENT (WNR) ADVANTAGE (WNR) 2019 003 [id number] [phone] MON [employer] MEDICARE MCR Sep 29, [id number] [phone] Ihsan DURAN I PATIENT [facility] (WNR) 2010 [id number] MON [facility] (WNR) Selected Encounter This section includes the information on record at MD for the Encounter. Date/Time Encounter Type Encounter Reason Provider Source Description Apr 19, 2022 Outpatient PM&RS PHYSICIAN ICD-10-CM THUAN HENDERSON 12:10 PM Encounter M62.81 Muscle KAREN J weakness (generalized) with Provider Comments: Muscle Weakness (Generalized) IHE Encounter Template Text not used by [facility] Assessments - Encounter Diagnoses This section includes the primary and secondary diagnoses documented for the Encounter. Date/Time Primary/Secondary Diagnosis Name Provider Source Diagnosis Apr 19, 2022 PRIMARY Muscle weakness THUAN HENDERSON [facility] 12:11 PM (generalized) KAREN J [facility] Plan of Treatment: Future Appointments (+ 6 months) and Future Tests (+/- 45 days) The Plan of Treatment section includes future care activities for the patient [facility] This section includes future appointments and future orders which are active, pending orscheduled.Future Appointments This section includes appointments that were scheduled to occur 6 months from the date of the Encounter, up to a maximum of 20 appointments. The data comes from all MD treatment [facility]. Appointment Date/Time Appointment Type Appointment Facili ty Name Apr 22, 2022 03:30 PM AMBULATORY - NONE [facility] May 06, 2022 10:30 AM AMBULATORY - REHAB MEDICINE [facility] Active, Pending, and Scheduled Orders This section includes a listing of several types of active, pending, and scheduled orders, including clinic medications orders, diagnostic test orders, procedure orders and consult orders; where the start date of the order is 45 days before the date of the Encounter or 45 days after the date of the Encounter. The data comes from all MD treatment [facility]. Test Date/Time Test Type Test Details Facility Name May 06, 2022 10:43 AM Consult Order PROSTHETICS REQUEST Cons M INNEALOYD [facility] Unit Leader's Choice Social History: Smoking Status (Most current) and Tobacco Use (All prior to encounter date) This section includes the most current, and the historical, smoking and tobacco-related health factors from the MD facility where the Encounter took place.Current Smoking Status This section includes the most current smoking, or tobacco-related health factor, from the MD facility where the Encounter took place. Date/Time Current Smoking Status Comment Facility Jun 13, 2020 10:00 AM VA-TOBACCO FORMER USER [facility] Tobacco Use History This section includes a history of the smoking, or tobacco- related health factors, that were collected on or before the date of the Encounter. The data comes from the MD facility where the Encounter took place. Date/Time Smoking Status/Tobacco Use Comment Facil ity Jun 13, 2020 10:00 AM VA-TOBACCO QUIT 15 YRS OR MORE [facility] May 20, 2019 12:18 PM VA-TOBACCO FORMER USER [facility] May 20, 2019 12:18 PM VA-TOBACCO QUIT 15 YRS OR MORE [facility] Jul 30, 2018 08:31 AM VA-TOBACCO FORMER USER [facility] Jul 30, 2018 08:31 AM VA-TOBACCO QUIT 15 YRS OR MORE [facility] Aug 25, 2017 08:04 AM FORMER TOBACCO USER 7Y OR GREATER [facility] Nov 08, 2016 08:12 AM FORMER TOBACCO USER 7Y OR GREATER [facility] Nov 29, 2015 12:46 PM FORMER TOBACCO USER 7Y OR GREATER [facility] February 23, 2015 12:57 PM FORMER TOBACCO USER 7Y OR GREATER [facility] January 27, 2014 10:10 AM FORMER TOBACCO USER 7Y OR GREATER [facility] Mar 17, 2007 09:11 AM FORMER TOBACCO USER 7Y OR GREATER [facility] Advance Directives: All historical and current Section Date Range: From patient's date of to the date document was created. This section includes ALL of a patient's completed or amended MD Advance and Rescinded Directives. The entries below indicate that a directive exists for the patient, but an actual copy is not included with this document. The data comes from all [facility]. Date Advance Directives Provider Source Mar 17, 2007 ADVANCE DIRECTIVE ALBERTO RODRIGUEZ [facility] Encounter Notes: All associated encounter notes This section contains the clinical notes associated to the Encounter. Date/Time Encounter Note(s) Provider Source Apr 19, 2022 12:10 PM [facility] CONS[facility]: KAYA ALVAREZ [facility] LOCAL TITLE: [facility] THERAPY AUTHORZATION CONSULT J STANDARD TITLE: [facility] CONS ULT DATE OF NOTE: APR 19, 2022@12:10 ENTRY DATE: APR 19, 2022@12:10:07 AUTHOR: KAYA HENDERSON EXP COSIGNER: URGENCY: STATUS: COMPLETED [facility] Authorization Diagnosis for treatment: Weakness PT/OT Therapy Authorization: LOW Criteria: Up to 149 minutes per week with th e following disciplines: - Occupational Therapy: 3x/week for 3 weeks Summary: 76 y/o with PMHx of DM II, COPD, Bladder Cancer and HTN with 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 He is now in SNF for ongoing patience ab. He has new wheelchair seating. OT to work with carlin hamilton on education, training and positioning with new wheelchair in facility. Econsult and chart review total time: 11 minutes Comments: This [facility] senior care Physical/Occupational (PT/OT) Therapy authorization request was reviewed using the [employer] documentation, therapy evaluation(s)and therapy treatment plan(s) provi ded by the senior care. Supportive [facility] documentation was also reviewed if available. The was not clinically examined by this provider as part of the review. [facility] therapy authorization revi ews are conducted for the purposes of evaluating the appropriateness for t herapy consistent with MD practices and approval for MD payment for nursin g home therapy. Appropriate clinical care and medical clearance for therapy authorization requests are the responsibility of the [facility] senior care provider. A current order for all therapies requested is required from the licensed independent practitioner directly overseeing this 's care at the [facility]. /jeffry/ KAYA HENDERSON DO PHYSICIAN, PM&R Signed: 04/19/2022 12:11 Receipt Acknowledged By: * AWAITING SIGNATURE * ALEJANDRA HECK
--- OUTSIDE RECORDS SUMMARY | 2022-05-21 11:14 | XMS_ITS | Clinical Summary ---
:1945 Author Organization [facility] Address [address] [place] [address] Care Team Providers Name Role Phone Shayla Alford D.O. Primary Care Provider [phone] Source Comments Patient records contain information from all sites at [facility]. For routine questions regarding patient records, call [phone] during business hours, M-F 8:00 AM - 5:00 PM Central Time. Record requests for emergency care only can be directed to [phone] at any time.[facility] Allergies Active Allergy Reactions Severity Noted Date Comments Amlodipine Hypotension, Nausea Medium 11/19/2017 Only, Other (see comments) Doxycycline Anaphylaxis, Other High 07/15/2010 Bactrim (see comments) Gadobutrol GI intolerance Low 09/17/2017 Patient vomit ed after administration Lisinopril Cough 04/28/2017 Penicillin Hives, Rash High 03/17/2007 Cerner Listed n o Reactions Sulfa (Sulfonamide Other (see comments), High 03/17/2007 Cerner Listed no Antibiotics) Anaphylaxis Reactions Liraglutide GI intolerance 05/12/2018 Medications Medication Sig Dispensed Refills Start Date End Date Status clopidogreL (PLAVIX) Take 1 tablet by 0 04/29/2016 Active 75 mg tablet mouth daily. atorvastatin Take 80 mg by mouth 0 Active (for_LIPITOR) 80 mg daily. tablet PEN NEEDLE, DIABETIC Yani Fine 30 0 Active MISC disposable needles. For use with Insulin Pens, 4 times daily SYRINGE-NEEDLE,INSULI 0 Active N,0.5 ML (INSULIN SYRINGE MISC) blood sugar Reports checking 0 A ctive diagnostic strips 4-5 times daily. escitalopram Take 1 tablet (10 30 tablet 11 04/28/2018 Active (LEXAPRO) 10 mg mg total) by mouth tablet daily. cholecalciferol, Take 1,000 Units by 0 Active vitamin D3, 25 mcg mouth daily. (1,000 Unit) tablet albuterol inhaler INHALE 2 PUFFS BY 0 Active INHALATION EVERY 6 HOURS NEEDED FOR SHORTNESS OF BREATHSHAKE WELL (FOR IMMEDIATE RELIEF). budesonide-formoteroL Inhale 2 puffs 2 1 Inhaler 11 06/30/2020 Active (SYMBICORT) 160-4.5 (two) times a day. mcg/actuation Start at 1 puff inhalerIndications: twice daily x 4 Asthma Extrinsic weeks, then 2 puffs Moderate (HCC) twice daily if tolerated. Additional Information Patient not taking. Reported on 02/27/2022 levothyroxine (SYNTHROID, Take 1 tablet (100 mcg 90 tablet 3 0 01/30/2021 Active LEVOTHROID) 100 mcg tablet total) by mouth daily. insulin aspart U-100 (NovoLOG Inject 11 Units under 0 02/22/2021 Active FlexPen) 100 unit/mL (3 mL) the skin 3 (three) injection times a day with meals. Additional Information Patient taking differently: 10 Units subcutaneous 3 times daily with meals, Other, Informant: Spouse/Significant Other, Reported on 02/27/2022 flash glucose scanning reader 1 each 5 (five) times a 1 each 0 03/02/2021 Active (FREESTYLE SOYFA) misc day. Use to scan Sofya sensor 5 times daily and as needed. E11.65 Lifetime use. Additional Information Patient not taking. Reported on 02/27/2022 flash glucose sensor 1 each every 14 (fourteen) 6 kit 3 Active (FREESTYLE SOFYA) kit days. Change sensor every 14 days E11.65 E11.40 Lifetime use Additional Information Patient not taking. Reported on 02/27/2022 metoprolol succinate Take 1 tablet 90 tablet 3 06/19/202105/31 Active (TOPROL-XL) 25 mg 24 hr (25 mg total) by tabletIndications: mouth daily. Do Hypertension Essential not crush or Primary chew. empagliflozin (Jardiance) Take 1 tablet 90 tablet 3 07/10/2021 Active 25 mg tabletIndications: (25 mg total) by Diabetes Mellitus Type 2 mouth every With Diabetic Neuropathy morning before (HCC), Diabetes Mellitus breakfast. Type 2 Hyperglycemia (HCC) traZODone (DESYREL) 100 mg Take 0.5 tablets 30 tablet 1 202007/10/2022 Active tablet (50 mg total) by mouth at bedtime as needed for sleep. glucose 4 gram chewable CHEW FOUR 0 07/09/2021 Active tablet TABLETS BY MOUTH NEEDED FOR LOW BLOOD SUGAR indomethacin (INDOCIN) 25 Take 25 mg by 0 08/31/2021 Active mg capsule mouth 3 (three) times a day with meals. traZODone (DESYREL) 50 mg Take 1 tablet by 0 021 Active tablet mouth at bedtime as needed. torsemide (DEMADEX) 20 mg Take 1 tablet 90 tablet 3 10/09/2021 10/09/2022 Active tabletIndications: (20 mg total) by Hypertension Essential mouth every Primary morning before breakfast. losartan (COZAAR) 25 mg Take 2 tablets 180 tablet 3 10/09/2021 10/09/2022 Active tablet (50 mg total) by mouth daily. semaglutide (Ozempic) 0.25 Initial, 0.25 mg 9 mL 3 2021 Active mg or 0.5 mg(2 mg/1.5 mL) subQ once weekly pen injector injection for 4 weeks, then increase to 0.5 mg once weekly for 4 weeks, then 1mg weekly for 3 months insulin glargine (Lantus Inject 28 Units 10 mL 2 Active U-100 Insulin) 100 unit/mL under the skin injectionIndications: at bedtime. Diabetes Mellitus Type 2 Hyperglycemia (HCC) Additional Information Patient taking differently: 25 Units subcutaneous Daily at bedtime, Other, Informant: Spouse/Significant Other, Reported on 02/27/2022 sennosides (senna) 8.6 mg tablet Take 8.6 mg by mouth 2 (two) 0 Active times a day. Give 2 tablets two times a day. mirtazapine (REMERON) 30 mg tablet Take 30 mg by mouth at bedtime. 0 Active polyethylene glycol (MIRALAX) 17 gram Take 17 g by mouth daily. 0 Active powder packet Dissolve each 17 g dose in 240 mLs (8 ounces) of beverage. Active Problems Patient Care Coordination Note Formatting of this note is different fro m the original. Living Situation/Support: Mr. Julissa florez es in his own home with his . He has support from her as well as his children. Home Medication Information: Medication is??managed by family member,??his .??But he helps as well.??He uses a twice a day pill box. MTM Consult: Declines DME: Glucometer and cane Functional Status: Independent in his ca res. He uses a cane to walk as needed. Community Services/County Contacts: [place] sarita cuello. CHW: SHAKILA Other: Problem Noted Date Hemianopsia Homonymous Right 02/27/2022 Chronic Obstructive Pulmonary Disease 11/06/2021 Diabetes Mellitus Type 2 With Diabetic Chronic Kidney Disease 04/19/2021 Hypothyroidism 02/23/2021 Atherosclerotic Heart Disease Torres Martinez Coronary Artery W ith Other Forms 10/12/2020 Angina Pectoris (Angina Equivalent) Chronic Kidney Disease (CKD), Stage 3b Glomerular Filt ration Rate (GFR) 30 10/12/2020 To 44 Unsteadiness Gait Disorder Non Orthopedic 09/13/2020 Last Assessment & Plan: Formatting of th is note might be different from the original. Recent brief events of unsteadiness once patient engage in maneuvers that require brisk movement of head and neck. No vertigo instead brief unsteadiness with no dizziness or presyncope. I discussed with the patient potential causes of his sym ptoms including inner ear disease or neurological illness. Patient agreed to start with balance and coordination exercises-physical therapy-he stated that he will get his blood work done before next vis it with Dr. Reid, he is motivated to follow with ENT specialist and to have MRI of the brain done. Patient was advised to contact me immediately if he develops any new symptoms. He stated that he jazmin l follow with Dr Reid. Failure Heart 05/03/2020 Beat Premature Ventricular 05/03/2020 Chronic Systolic (Congestive) Heart Failure 05/03/2020 History Of Falling 03/15/2020 Cancer Bladder Family History 05/21/2018 Nausea And Vomiting 05/12/2018 Diarrhea 05/12/2018 Fatigue 05/12/2018 Headache Unspecified 05/12/2018 Pancreatitis Chronic Recurrent 05/12/2018 Reaction Drug Adverse Initial 05/12/2018 Overview: Victoza injection Stroke 05/12/2018 Overview: Chronic lacunar infarcts of right cerebe llum and hussein as far MRI of head on 09/17/2017. 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 03/19/2022 Clinical Communication Sleep Medicine Mari Lala M.D., M.P.H. 03/12/2022 Clinical Communication Sleep Medicine Mari Lala M.D., M.P.H. 02/28/2022 Clinical Communication Community Internal [facility] Form Review Medicine Shayla queen ([facility] D.O. - labs ) 02/27/2022 Comprehensive Visit Neurology Mari Lala Stroke ( HCC) (Primary Dx); Pato Noonan, Hemianopsia Jonathan onymous Right M.P.H. from Last 3 Months Immunizations Name Administration Dates Next Due DTaP (Infanrix, Tripedia) 01/31/2015 H1N1 All Forms 10/13/2009 HZV (ZOSTAVAX) 07/13/2012 HepA Adult 11/15/2008 IPV 11/15/2008 Influenza (IM) Preservative Free 06/14/2019, 07/16/2018 Influenza TIV (IM) 07/28/2015 Influenza, Unspecified 07/18/2020, 06/14/2019, 06/26/2017, 07/12/2016, 07/28/2015, 08/02/2014, 07/07/2013, 06/29/2013, 07/23/2012, 07/22/2011, 07/13/2010, 07/11/2010, 06/26/2009, 07/24/2007, 07/30/2006, 10/30/2005 PCV13 01/31/2015 PPSV23 11/15/2008, 11/14/1998 Pneumococcal, Unspecified 02/04/2013, 09/10/2007 RZV (SHINGRIX) 08/22/2020, 06/13/2020 SARS-COV-2 (COVID-19) - MODERNA 11/15/2020, 10/18/2020 Td (Adult), adsorbed 01/14/2009, 08/29/2004 Td Preservative Free (TENIVAC, 01/14/2009 DECAVAC) Tdap 01/31/2015, 01/27/2014 Typhoid, Unspecified 11/15/2008 YF 11/15/2008 Zoster, Unspecified 08/22/2020 influenza high dose (65 years or 07/13/2019, 06/18/2017, , older) (PF) 07/03/2015 influenza vaccine quad 07/03/2021, 07/18/2020 (FLUZONE/FLUARIX) (6 months and older)(PF) Family History Medical History Relation Name Comments Asthma Brother Crow Costa Depression Brother Crow Costa Asthma Daughter Kayli Vaughan Coronary artery disease Father Torsten Costa Depression Father Torsten Costa Heart attack Father Torsten Costa age 76 Coronary artery disease Mother Marce Costa Hypertension Mother Marce Costa Asthma Sister Vita Vela Asthma Son Relation Name Status Comments Brother Crow Julissa Daughter Kayli Thalhuber Father Torsten Julissa Mother Marce Julissa Sister Vita Vela Son Social History Tobacco Use Types Packs/Day Years Used Date Smoking Tobacco: Former Cigarettes 2 25 06/29 - 1979 Pipe Smokeless Tobacco: Never Tobacco Cessation: Counseling Given: Yes Alcohol Use Standard Drinks/Week Comments No 0 (1 standard drink = 0.6 oz pure alcoho l) Alcohol Habits Answer Date Recorded How often do you have a drink containing alcohol? Monthly or less 10/09/2021 How many drinks containing alcohol do you have on a 1 or 2 10/09/2021 typical day when you are drinking? How often do you have six or more drinks on one Never 10/09/2021 occasion? Comment: Not asked Social Isolation Answer Date Recorded In a typical week, how many times do you More than three junito es a week 10/09/2021 talk on the phone with family, friends, or neighbors? How often do you get together with friends Once a week 10/09/2021 or relatives? How often do you attend sikhism or Never 2021 restorationism services? Do you belong to any clubs or No 10/09/2021 organizations such as sikhism groups, unions, fraternal or athletic groups, or school groups? How often do you attend meetings of the Never 10/09/2021 clubs or organizations you belong to? Are you now , , , 10/09/2021 , never or living with a partner? Physical Activity Answer Date Recorded On average, how many days per week do you engage in moderate to 0 days 10/09/2021 strenuous exercise (like walking fast, running, jogging, dancing, swimming, biking, or other activities that cause a light or heavy sweat)? On average, how many minutes do you engage in exercise at th is 0 min 10/09/2021 level? Stress Answer Date Recorded Do you feel stress - tense, restless, nervous, or anxious, N ot at all 10/09/2021 or unable to sleep at night because your mind is troubled all the time - these days? Financial Resource Strain Answer Date Recorded How hard is it for you to pay for the very basics like Not h nelda at all 10/09/2021 food, housing, medical care, and heating? Intimate Partner Violence Answer Date Recorded Within the last year, have you been afraid of your partner o r No 10/09/2021 ex-partner? Within the last year, have you been humiliated or emotionall y No 10/09/2021 abused in other ways by your partner or ex-partner? Within the last year, have you been kicked, hit, slapped, or No 10/09/2021 otherwise physically hurt by your partner or ex-partner? Within the last year, have you been raped or forced to have any No 10/09/2021 kind of sexual activity by your partner or ex-partner? Food Insecurity Answer Date Recorded Within the past 12 months, you worried that your food would Never true 10/09/2021 run out before you got money to buy more. Within the past 12 months, the food you bought just didn't N ever true 10/09/2021 last and you didn't have money to get more. Transportation Needs Answer Date Recorded In the past 12 months, has lack of transportation kept you f rom No 10/09/2021 medical appointments or from getting medications? In the past 12 months, has lack of transportation kept you f rom No 10/09/2021 meetings, work, or getting things needed for daily living? Housing Stability Answer Date Recorded In the last 12 months, was there a time when you were not ab le No 10/09/2021 to pay the mortgage or rent on time? In the last 12 months, how many places have you lived? 1 10/09/2021 In the last 12 months, was there a time when you did not hav e a No 10/09/[address] to sleep or slept in a [place] [facility] [place] (including now)? Education Answer Date Recorded What is the highest level of school Master's degree (e.g., M A, MS, 03/23/2019 you have completed or the highest Martin, MEd, ROTARY DRYER OPERATOR, [employer]) degree you have received? 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 Plan of Treatment Health Maintenance Due Date Last Done Comments CT Colonography 1945 Cologuard 1945 Hepatitis C Screening 1945 Hepatitis B Vaccines (1 of 3 - 2003 Risk 3-dose series) Diabetes Education 07/22/2018 07/22/2017, 04/19/2015 Dilated Eye Exam 04/16/2019 04/16/2018 (Performed elsewhere), 10/12/2015 Colonoscopy 08/19/2020 08/19/2018, 08/19/2018, 08/19/2018, Additional history exists Colorectal Cancer Surveillance 08/19/2020 Fall Risk Screen (Annual) 09/29/2021 Hemoglobin A1C 02/04/2022 11/07/2021, 07/30/2021, 07/11/2021, Additional history exists Diabetic Office Visit with Foot 04/19/2022 04/19/2021, 10/2019, Exam 07/22/2017 Influenza Vaccine (#1) 2022 07/03/2021, 07/18/2020, 07/18/2020, Additional history exists Urine Microalbumin 10/18/2022 10/18/2021, 05/16/2021, 04/18/2021, Additional history exists Creatinine Level 11/07/2022 11/07/2021, 10/09/2021, 07/30/2021, Additional history exists Potassium Level 11/07/2022 11/07/2021, 10/09/2021, 07/30/2021, Additional history exists Sodium Level 11/07/2022 11/07/2021, 10/09/2021, 07/30/2021, Additional history exists Visit: Chronic Disease, age 18+ 11/29/2022 11/29/2021, 11/2021 Thyroid Stimulating Hormone (TSH) 02/19/2023 02/19/2022, , test for thyroid function 01/11/2021, Additional history exists Office Visit for Blood Pressure 02/27/2023 02/27/2022 Check / Re-check DTaP,Tdap,and Td Vaccines (3 - Td 01/31/2025 01/31/2015, , or Tdap) 01/27/2014, Additional history exists Pneumococcal vaccine (65+ years) Completed 01/31/2015, 05/2013, 11/15/2008, Additional history exists Zoster Vaccines Completed 08/22/2020, 06/13/2020, 07/13/2012 Depression Screening (Annual Completed 11/06/2021 PHQ-2) COVID-19 Vaccine Completed 02/13/2022, 07/23/2021, 11/15/2020, Additional history exists Medical Devices Implanted Type Area Water Project Engineer Device Shelf Model / Identifier Expiration Serial / Date Lot Foreign Foreign Body Left: Body-Metal (e.g. Hand From A Hammer Shrapnel) Description: Piece of hammer in hand for 60yrs. Check to see if it is ferrous and educate pt about the squeeze ball. SDN Ocular Lens Ocular Lens Left: Eye Insurance Payer Benefit Plan / Subscriber ID Effective Phone Address T ype Group Dates UCARE UCARE FOR [id number] 2019-Pre [phone] [address] HMO SENIORS O sent -[address] [place] [address] [facility] [id number] 2007-Pr OCC CLAIMS I ndemnity ADMINISTRATION esent [employer] [address] [place] [address] Advance Directives For more information, please contact: [phone] Latest Code Status on File Code Status Date Activated Date Inactivated Comments Full Code 05/03/2020 5:37 PM 05/06/2020 7:12 PM Full Code: Discussed Care Teams Joint Machine Operator Relationship Specialty Start Date End Date Shayla Alford D.O. PCP - General Internal Medicine 05/22/[address] [place] [address]
--- OUTSIDE RECORDS SUMMARY | 2022-05-21 11:15 | XMS_ITS | Encounter Summary ---
:1945 Author Organization [facility] Address [address] [place] [address] Care Team Providers Name Role Phone Shayla Alford D.O. Primary Care Provider Encounter Details Date Type Department Care Team Description 02/04/2022 Clinical Communication Department of Urology Prasanna Bernal in [place], [place] M.D. [address] [place] [address] [place], [place] [phone] Social History Tobacco Use Types Packs/Day Years Used Date Smoking Tobacco: Former Cigarettes 2 25 06/29 - 1979 Pipe Smokeless Tobacco: Never Alcohol Use Standard Drinks/Week Comments No 0 [...] or relatives? How often do you attend buddhist or Never 2021 congregation services? Do you belong to any clubs or No 10/09/2021 organizations such as buddhist groups, unions, fraternal or athletic groups, or [...] place to sleep or slept in a senior living (including now)? Education Answer Date Recorded What is the highest level of school Master's degree (e.g., M A, MS, 03/23/2019 you have completed or the highest Martin, MEd, ASSOCIATE JUSTICE, [place]) degree you have received? Sex Assigned at Date Recorded Male 05/21/2018 2:34 PM CDT documented as of this encounter Miscellaneous Notes Telephone Encounter - Jimena Copeland R.N. - 02/04/2022 4:29 PM CDT Patients Diallo contacted and all questions answered regarding transferring patient for appointment. No further needs. Telephone Encounter - Astrid Titus - 02/04/2022 3:08 PM CDT Reason for Communication: Patient's , Diallo calling to discuss upcoming appt in February with Dr Bernal. Please call back to discuss concerns. Current Can Nursing/Provider leave a detailed message?: Did the patient refuse triage through Nurse line? (for symptom based concerns): Action Needed: Please call to advise Name of Medication (if relevant): Please send all scheduling replies to scheduling pool. documented in this encounter Plan of Treatment Not on filedocumented as of this encounter Visit Diagnoses Not on filedocumented in this encounter Additional Health Concerns Assessment Noted Time PHQ-9 Depression Total Score: 18 04/28/2018 11:27 AM C DT documented as of this encounter Care Teams Communications Project Lead Relationship Specialty Start Date End Date Shayla Alford D.O. PCP - General Internal Medicine 05/22/[address] [id number] documented as of this encounter
--- OUTSIDE RECORDS SUMMARY | 2022-05-21 11:15 | XMS_ITS | Encounter Summary ---
:1945 Author Organization [facility] Address [address] [place] [address] Care Team Providers Name Role Phone Shayla Alford D.O. Primary Care Provider [phone] Reason for Visit Reason Comments Pre-op Exam Diabetes Mellitus Knee Pain Fell about a month ago Outpatient (Routine) - Closed Specialty Diagnoses / Procedures Referred By Contact Refer red To Contact Community Internal Diagnoses Preoperative Exam ARMAAN Alford [facility] Medicine Tulio Mcguire [address] [place] [address] Referral ID Status Reason Start Date Expiration Date Visits Requ ested Visits Authorized [id number] Closed 09/13/2021 09/13/2022 1 1 Encounter Details Date Type Department Care Team Description 11/29/2021 Office Visit Department of Internal Rocío sanders Systolic (Congestive) Heart Failure (HCC) (Primary Dx); Medicine in [facility] , Coleman Mcguire Preoperative Exam; [place] [address] Diabetes Mellitus Type 2 Hyperglycemia ( HCC); [address] [place], [place] Hypothyroidism; [place] [address] Hypertension Essential Primary [id number] Social History Tobacco Use Types Packs/Day Years Used Date Smoking Tobacco: Former Cigarettes 2 06/29 - 1979 Pipe Smokeless Tobacco: Never [...] or relatives? How often do you attend protestant or Never 2021 catholic services? Do you belong to any clubs or No 10/09/2021 organizations such as protestant groups, unions, fraternal or athletic groups, or [...] place to sleep or slept in a nursing home (including now)? Education Answer Date Recorded What is the highest level of school Master's degree (e.g., M [place], MS, 03/23/2019 you have completed or the highest Martin, MEd, SKATE MAKER, CAYDEN) degree you have received? Sex Assigned at Date Recorded Male 05/21/2018 2:34 PM CDT documented as of this encounter Last Filed Vital Signs Vital Sign Reading Time Taken Comments Blood Pressure 121/65 11/29/2021 11:27 AM HEAT TRANSFER TECHNICIAN Pulse 65 11/29/2021 11:27 AM HEAT TRANSFER TECHNICIAN Temperature 36.8 ??C (98.2 ??F) 11/29/2021 11:27 AM HEAT TRANSFER TECHNICIAN Respiratory Rate - - Oxygen Saturation - - Inhaled Oxygen Concentration - - Weight 101 kg (223 lb 1.7 oz) 11/29/2021 11:27 AM HEAT TRANSFER TECHNICIAN Height - - Body Mass Index 29.6 10/09/2021 3:28 PM HEAT TRANSFER TECHNICIAN documented in this encounter Patient Instructions Patient InstructionsShayla Alford D.O. - 11/29/2021 11:30 AM HEAT TRANSFER TECHNICIAN Hold Plavix 5 days before procedure or starting today Take half of your long acting Lantus friday evening (14 units) Hold your short acting insulin or NovoLog the AM of the procedure Meet with our pharmacist Zoya for insulin adjustment since you are Starting Ozempic. TRANSFER TECHNICIAN documented in this encounter H&P Notes Shayla Alford D.O. - 11/29/2021 11:30 AM CST INTERNAL MEDICINE PREOPERATIVE EXAM: DATE OF SERVICE 11/29/2021 LOCATION OF SERVICE [facility] CHIEF COMPLAINT/REASON FOR VISIT Preoperative exam Chief Complaint Patient presents with ??? Pre-op Exam ??? Diabetes Mellitus ??? Knee Pain Fell about a month ago REFERRED BY/ SURGEON: HISTORY OF PRESENT ILLNESS Jonnathan Costa Is a very pleasant 76-year-old male well known to my internal medicine practice with past medical history significant for systolic congestive heart failure, type 2 diabetes, hypertension, obstructive sleep apnea, history of pancreatitis, presents today for preoperative evaluationto a screening colonoscopy on 12/03/2021 From, cardiovascular standpoint, he has been volume compensated. Echocardiogram 11/17/2020 showed an EF of 50%, with [id number] mitral valve regurgitation. His blood pressure has been stable 121/65 with heart rate 65 and oxygen saturation of 98%. He denies any shortness of breath or chest pain and, in fact states that he ' feels the best he has felt in a long time'. He has purchased a recumbent bike and is excited about starting to include exercise in his daily routine. He has been working onimproving his diet and improving his diabetes. Last hemoglobin A1c was still high at 9.5. 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 Due to worsening kidneyfunction, his metformin had to be stopped. He is now on long-acting insulin and short-acting. We didtalk in the past about Trulicity and benefits of this medication. As well as the convenience of onceweekly dosing. We did review in detail side effects including the are small risk of less than 1% of p ancreatitis. No history of thyroid disease is was thyroid cancer. the patient was not able to [place] but he was able to receive Ozempic. He has not started taking the medication yet. We reviewed his medications with him, and discuss starting it tomorrow. He will also meet with our pharmacist for titration down of his insulin. I have, instructed him to decrease his Lantus to 28 units from 32 units once Ozempic is initiated. He will continue 3 times daily glucose monitoring and report any lows. Past Medical History: Diagnosis Date ??? Apnea Sleep Obstructive 06/18/2011 intolerant to CPAP therapy ??? Asthma (HCC) 10/16/2009 Pulmonary symptomatology, [place] unclear, but probably some degree of COPD. ??? Asthma NOS ??? Cataract 2014 ??? Chronic Obstructive Pulmonary Disease (HCC) ??? Depression Anxiety 11/18/2006 ??? Diabetes Mellitus NOS 11/18/2006 ??? Diabetes Mellitus Type 2 With Diabetic Neuropathy (HCC) 11/18/2006 ??? Diverticulosis Colon 02/16/2018 ??? Dysfunction Erectile 09/23/2007 ??? Hernia Umbilical 05/24/2009 ??? Hernia Ventral 06/29/2009 ??? Hypercholesterolemia 09/23/2007 ??? Hyperplasia Prostate Benign Localized Without Obstruction 11/18/2006 ??? Hypertension Essential Primary 09/23/2007 ??? Malignant Primary Neoplasm (Unknown Site) Unspecified (HCC) ??? Pancreatitis Acute (HCC) ??? 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 ??? Polyp Colon Adenomatous 07/03/2009 ??? Polyp Colon Hyperplastic 07/03/2009 ??? Rhinitis Chronic 12/31/2010 ??? Skin Cancer (Primary) NOS ??? Smoking Tobacco Use Personal History 1980 Quit in 1979 ??? Stroke (HCC) 09/17/2017 Chronic lacunar infarcts of right cerebellum and hussein as far MRI of head on 09/17/2017 ??? Transient Ischemic Attack Past Surgical History: Procedure Laterality Date ??? BLADDER SURGERY ??? COLONOSCOPY 08/10/2013 Repeat in [address] Hamm ??? COLONOSCOPY 07/03/2009 ??? COLONOSCOPY 11/2006 ??? CYSTOSCOPY 05/22/2016 Cystoscopy with removal of 2.5 cm tumor on the right bladder wall on 05/22/[address] Bernal. ??? EXTRACTION CATARACT WITH INSERTION INTRAOCULAR LENS Right 08/2010 ??? EXTRACTION CATARACT WITH INSERTION INTRAOCULAR LENS [place]2008 [place] ??? LASER OF PROSTATE W/ GREEN LIGHT PVP 08/28/2016 Greenlight photoselective vaporization of the prostate and cystoscopy with bladder biopsy and fulguration of a 2cm area; 08/28/[address] Prasanna Bernal at the [facility]. ??? TONSILLECTOMY ??? TONSILLECTOMY 1967 ??? VASECTOMY Family History Problem Relation Age of Onset ??? Hypertension Mother ??? Coronary artery disease Mother ??? Heart attack Father age 76 ??? Depression Father ??? Coronary artery disease Father ??? Asthma Sister ??? Asthma Brother ??? Depression Brother ??? Asthma Son ??? Asthma Daughter Social History Socioeconomic History ??? Marital status: Spouse name: Not on file ??? Number of children: Not on file ??? Years of education: Not on file ??? Highest education level: Master's degree (e.g., MA, MS, Martin, MEd, SKATE MAKER, CAYDEN) Occupational History Employer: RETIRED Tobacco Use ??? Smoking status: Former Smoker Packs/day: 2.00 Years: 25.00 Pack years: 50.00 Types: Cigarettes, Pipe Start date: 07/13/1955 Quit date: 1980 Years since quittin.1 ??? Smokeless tobacco: Never Used Substance and Sexual Activity ??? Alcohol use: No ??? Drug use: Never ??? Sexual activity: Not Currently Partners: Female control/protection: Vasectomy Other Topics Concern ??? Not on file Social History Narrative ??? Not on file Social Determinants of Health Financial Resource Strain: Low Risk ??? Difficulty of Paying Living Expenses: Not hard at all Food Insecurity: No Food Insecurity ??? Worried About Running Out of Food in the Last Year: Never true ??? Ran Out of Food in the Last Year: Never true Transportation Needs: No Transportation Needs ??? Lack of Transportation (Medical): No ??? Lack of Transportation (Non-Medical): No Physical Activity: Inactive ??? Days of Exercise per Week: 0 days ??? Minutes of Exercise per Session: 0 min Stress: No Stress Concern Present ??? Feeling of Stress : Not at all Social Connections: Moderately Isolated ??? Frequency of Communication with Friends and Family: More than three times a week ??? Frequency of Social Gatherings with Friends and Family: Once a week ??? Attends Buddhism Services: Never ??? Active Member of Clubs or Organizations: No ??? Attends Club or Organization Meetings: Never ??? Marital Status: Intimate Partner Violence: Not At Risk ??? Fear of Current or Ex-Partner: No ??? Emotionally Abused: No ??? Physically Abused: No ??? Sexually Abused: No Housing Stability: Low Risk ??? Unable to Pay for Housing in the Last Year: No ??? Number of Places Lived in the Last Year: 1 ??? Unstable Housing in the Last Year: No Social History Social History Narrative ??? Not on file Current Outpatient Medications on File Prior to Visit Medication Sig Dispense Refill ??? albuterol inhaler INHALE 2 PUFFS BY INHALATION EVERY 6 HOURS NEEDED FOR SHORTNESS OF BREATHSHAKE WELL (FOR IMMEDIATE RELIEF). ??? atorvastatin (for_LIPITOR) 80 mg tablet Take 80 mg by mouth daily. ??? blood sugar diagnostic strips Reports checking 4-5 times daily. ??? budesonide-formoteroL (SYMBICORT) 160-4.5 mcg/actuation inhaler Inhale 2 puffs 2 (two) times a day. Start at 1 puff twice daily x 4 weeks, then 2 puffs twice daily if tolerated. 1 Inhaler 11 ??? cholecalciferol, vitamin D3, 25 mcg (1,000 Unit) tablet Take 1,000 Units by mouth daily. ??? clopidogreL (PLAVIX) 75 mg tablet Take 1 tablet by mouth daily. ??? empagliflozin (Jardiance) 25 mg tablet Take 1 tablet (25 mg total) by mouth every morning beforebreakfast. 90 tablet 3 ??? escitalopram (LEXAPRO) 10 mg tablet Take 1 tablet (10 mg total) by mouth daily. 30 tablet 11 ??? flash glucose scanning reader (FREESTYLE SOFYA) misc 1 each 5 (five) times a day. Use to scan Sofya sensor 5 times daily and as needed. E11.65 Lifetime use. 1 each 0 ??? flash glucose sensor (FREESTYLE SOFYA) kit 1 each every 14 (fourteen) days. Change sensor every 14 days E11.65 E11.40 Lifetime use 6 kit 3 ??? glucose 4 gram chewable tablet CHEW FOUR TABLETS BY MOUTH NEEDED FOR LOW BLOOD SUGAR ??? insulin aspart U-100 (NovoLOG FlexPen) 100 unit/mL (3 mL) injection Inject 11 Units under the skin 3 (three) times a day with meals. ??? insulin glargine (Lantus U-100 Insulin) 100 unit/mL injection Inject 30 Units under the skin at bedtime. (Patient taking differently: Inject 34 Units under the skin at bedtime.) ??? levothyroxine (SYNTHROID, LEVOTHROID) 100 mcg tablet Take 1 tablet (100 mcg total) by mouth daily. 90 tablet 3 ??? losartan (COZAAR) 25 mg tablet Take 2 tablets (50 mg total) by mouth daily. 180 tablet 3 ??? metoprolol succinate (TOPROL-XL) 25 mg 24 hr tablet Take 1 tablet (25 mg total) by mouth daily. Do not crush or chew. 90 tablet 3 ??? PEN NEEDLE, DIABETIC MISC Yani Fine 30 disposable needles. For use with Insulin Pens, 4 times daily ??? semaglutide (Ozempic) 0.25 mg or 0.5 mg(2 mg/1.5 mL) pen injector injection Initial, 0.25 mg subQ once weekly for 4 weeks, then increase to 0.5 mg once weekly for 4 weeks, then 1mg weekly for 3 months 9 mL 3 ??? SYRINGE-NEEDLE,INSULIN,0.5 ML (INSULIN SYRINGE [facility]) ??? torsemide (DEMADEX) 20 mg tablet Take 1 tablet (20 mg total) by mouth every morning before breakfast. 90 tablet 3 ??? traZODone (DESYREL) 100 mg tablet Take 0.5 tablets (50 mg total) by mouth at bedtime as needed for sleep. 30 tablet 1 ??? traZODone (DESYREL) 50 mg tablet Take 1 tablet by mouth at bedtime as needed. ??? dulaglutide (Trulicity) 0.75 mg/0.5 mL injection Inject 0.5 mL (0.75 mg total) under the skin every 7 (seven) days. (Patient not taking: Reported on 11/29/2021) 0.5 mL 3 ??? indomethacin (INDOCIN) 25 mg capsule Take 25 mg by mouth 3 (three) times a day with meals. No current facility-administered medications on file prior to visit. SYSTEMS REVIEW A comprehensive review of systems is negative except for those items stated within the content of the HPI. Blood pressure 121/65, pulse 65, temperature 36.8 ??C, temperature source Temporal, weight 101 kg. PHYSICAL EXAMINATION GENERAL: Well-nourished, well-developed 76 y.o. year old in no apparent distress. Awake, alert, age appropriate. HEENT: Head is normocephalic, atraumatic. Bilateral pupils are equal, reactive to light, and accommodation. EOMs intact. Conjunctivae and sclera are clear. Bilateral external ears nontender to manipulation with clear canals. Bilateral TMs normal. Hearing is grossly normal. Nares patent with normal mucosa. Oropharynx pink and moist without exudate or erythema. NECK: Neck is supple. Thyroid is normal size and shape. Trachea is midline. CARDIOVASCULAR: Regular rate and rhythm. S1, S2 without murmurs. No rubs or gallops. No Lower extremity edema LUNGS: Clear to auscultation in bilateral anterior and posterior chest with easy respirations. ABDOMEN: Bowel sounds present throughout. Rounded, soft, without tenderness to palpation with no organomegaly. SKIN: Warm, pink, and dry. No rashes, excoriations, open areas. MUSCULOSKELETAL: normal musculature, and joint structure, Normal range of motion in all extremities.5/5 strength in bilateral upper and lower extremities with full ROM. LYMPHATIC: No cervical, submandibular, supraclavicular adenopathy. NEUROLOGIC: Alert and oriented x 3. CN II-XII grossly intact. Bilateral brachioradialis, patellar, and Achilles tendon DTRs 2+/4+ bilaterally. Strength and tone normal in upper and lower extremities. Reflexes are symmetric DIAGNOSTICS: Lab Results Component Value Date WBC 6.5 11/07/2021 HGB 11.8 (L) 11/07/2021 HCT 34.6 (L) 11/07/2021 MCV 89.6 11/07/2021 PLT 187 11/07/2021 Lab Results Component Value Date NA 138 11/07/2021 CL 107 11/07/2021 CREATININE 1.46 (H) 11/07/2021 BUN 28 (H) 11/07/2021 ANIONGAP 10 11/07/2021 GLUCOSE 157 (H) 11/07/2021 CALCIUM 8.8 11/07/2021 EKG 11/29/2021: IMPRESSION: Marked sinus bradycardia with 1st degree A-V block Premature ventricular complexes Low anterior forces Nonspecific T wave abnormality When compared with ECG of 17-NOV-2020 12:56, Premature ventricular complexes are now present Poor quality in Lead V3 Reviewed by SEAN Weston IMPRESSION/REPORT/PLAN Chronic Systolic (Congestive) Heart Failure (HCC) Preoperative Exam Diabetes Mellitus Type 2 Hyperglycemia (HCC Hypothyroidism Hypertension Essential Primary Jonnathan Bandar Costa Is a very pleasant 76-year-old male well known to my internal medicine practice with past medical history significant for systolic congestive heart failure, type 2 diabetes, hypertension, obstructive sleep apnea, history of pancreatitis, presents today for preoperative evaluationto a screening colonoscopy on 12/03/2021 From, cardiovascular standpoint, he has been volume compensated. Echocardiogram 11/17/2020 showed an EF of 50%, with [id number]-rlqrhksn mitral valve regurgitation. His blood pressure has been stable 121/65 with heart rate 65 and oxygen saturation of 98%. He denies any shortness of breath or chest pain and, in fact states that he ' feels the best he has felt in a long time'. He has purchased a recumbent bike and is excited about starting to include exercise in his daily routine. He has been working onimproving his diet and improving his diabetes. Last hemoglobin A1c was still high at 9.5. [facility]. Due to worsening kidneyfunction, his metformin had to be stopped. He is now on long-acting insulin and short-acting. We didtalk in the past about Trulicity and benefits of this medication. As well as the convenience of onceweekly dosing. We did review in detail side effects including the are small risk of less than 1% of p ancreatitis. No history of thyroid disease is was thyroid cancer. the [place] able [place] receive Ozempic. He has not started taking the medication yet. We reviewed his medications with him, and discuss starting it tomorrow. He will also meet with our pharmacist for titration down of his insulin. I have, instructed him to decrease his Lantus to 28 units from 32 units once Ozempic is initiated. He will continue 3 times daily glucose monitoring and report any lows Other orders Hold Plavix 5 days before procedure or starting today Take half of your long acting Lantus friday evening (14 units) Hold your short acting insulin or NovoLog the AM of the procedure Meet with our pharmacist Zoya for insulin adjustment since you are Starting Ozempic. - [facility] Internal Medicine office visit (clinic); Future - insulin glargine (Lantus U-100 Insulin) 100 unit/mL injection; Inject 28 Units under the skin at bedtime. - Pharmacy - Medication therapy management consult (clinic); Future - [facility] office visit (clinic) Jonnathan Costa presented today for preoperative examination. Based on his history and examination they are medically optimized for surgical intervention from the perspective of internal medicine. No further workup is required at this time. Electronically signed by: Shayla Alford D.O. 11/29/21 11:35 AM HEAT TRANSFER TECHNICIAN TRANSFER TECHNICIAN documented in this encounter Plan of Treatment Not on filedocumented as of this encounter Visit Diagnoses Diagnosis Chronic Systolic (Congestive) Heart Fail ure (HCC) - Primary Preoperative Exam Diabetes Mellitus Type 2 Hyperglycemia ( HCC) Hypothyroidism Hypertension Essential Primary documented in this encounter Additional Health Concerns Infection Onset Date Last Indicated Resolved Time COVID19 Pending 11/29/2021 11/29/2021 12/19/2021 5:54 AM CDT Assessment Noted Time PHQ-9 Depression Total Score: 18 04/28/2018 11:27 AM C DT documented as of this encounter Care Teams Computer Information Systems Instructor Relationship Specialty Start Date End Date Shayla Alford D.O. PCP - General Internal Medicine [address] [place] [address] documented as of this encounter
--- OUTSIDE RECORDS SUMMARY | 2022-05-21 11:15 | XMS_ITS | Encounter Summary ---
:1945 Author Organization [facility] Address [address] [place] [address] Care Team Providers Name Role Phone Shayla Alford D.O. Primary Care Provider [phone] Encounter Details Date Type Department Care Team Description 12/26/2021 Orders Only Department of Internal [place] Medicine in [place], [place].Jason Wade [place] [address] [place] [phone] (Wo rk) Social History Tobacco Use Types Packs/Day Years [...] or relatives? How often do you attend mandaen or Never 2021 oriental orthodox services? Do you belong to any clubs or No 10/09/2021 organizations such as mandaen groups, unions, fraternal or athletic groups, or [...] place to sleep or slept in a fpc (including now)? Education Answer Date Recorded What is the highest level of school Master's degree (e.g., M A, MS, 03/23/2019 you have completed or the highest Martin, MEd, LOOSE HAND PACKER, CAYDEN) degree you have received? Sex Assigned at Date Recorded Male 05/21/2018 2:34 PM CDT documented as of this encounter Plan of Treatment Not on filedocumented as of this encounter Visit Diagnoses Not on filedocumented in this encounter Additional Health Concerns Assessment Noted Time PHQ-9 Depression Total Score: 18 04/28/2018 11:27 AM C DT documented as of this encounter Care Teams Safe And Vault Service Mechanic Relationship Specialty Start Date End Date Shayla Alford D.O. PCP - General Internal Medicine 05/22/[address] [phone] documented as of this encounter
--- OUTSIDE RECORDS SUMMARY | 2022-05-21 11:15 | XMS_ITS | Encounter Summary ---
:1945 Author Organization [facility] Address [address] [place] [address] Care Team Providers Name Role Phone Shayla Alford D.O. Primary Care Provider [phone] Encounter Details Date Type Department Care Team Description 11/30/2021 Clinical Communication Department of Internal Andrei Dejesus Medicine in [place], [place], Coleman.O Mauro [place] [address] [place] [phone] Social History Tobacco Use Types Packs/Day Years [...] or relatives? How often do you attend restorationism or Never 2021 lutheran services? Do you belong to any clubs or No 10/09/2021 organizations such as restorationism groups, unions, fraternal or athletic groups, or [...] to sleep or slept in a senior care (including now)? Education Answer Date Recorded What is the highest level of school Master's degree (e.g., M A, MS, 03/23/2019 you have completed or the highest Martin, MEd, WELT POCKET MACHINE OPERATOR, CAYDEN) degree you have received? Sex Assigned at Date Recorded Male 05/21/2018 2:34 PM CDT documented as of this encounter Miscellaneous Notes Telephone Encounter - Yari Lee, C.M.A. - 11/30/2021 1:57 PM TARIFF COUNSEL Information Discussed Informed patient of providers message. Made sure he understood the personal cell is for leaving messages if he doesn't get an answer in 2-3 days. Patient relayed understanding. PLAN Disposition/Recommendation: self-care is appropriate at this time, patient encouraged to call back with questions Information/Education: patient/caller able to teach back Caller agreeable to plan of care: yes The following references were used: provider Dr. Reid FF COUNSEL Telephone Encounter - [place]-Shayla Dejesus D.O. - 11/30/2021 12:59 PM TARIFF COUNSEL Thank you for the information . This seems to be an FYI only . Please inform the patient that I am sorry for the diagnosis. In the future , please continue using the patient portal as your main communication tool . The personal cell was provided in the event that the patient doesn't receive an answer to the communication within 2-3 days. Electronically signed by: Shayla Alford D.O. 11/30/21 1:01 PM TARIFF COUNSEL FF COUNSEL Telephone Encounter - Arlyn Batista R.N. - 11/30/2021 12:13 PM CST Patient reporting that he has tested positive COVID at [place] today. Was going for dental appointment and test prior to colonoscopy. Both were cancelled and needed to be rescheduled. Patient states he alsohad questions regarding colonoscopy prep but will wait until appointment with Dr. Reid on January 02 at appointment. Patient will call back if he has questions prior to then. FF COUNSEL documented in this encounter Plan of Treatment Not on filedocumented as of this encounter Visit Diagnoses Not on filedocumented in this encounter Additional Health Concerns Infection Onset Date Last Indicated Resolved Time COVID19 Pending 11/29/2021 11/29/2021 12/19/2021 5:54 AM CDT Assessment Noted Time PHQ-9 Depression Total Score: 18 04/28/2018 11:27 AM C DT documented as of this encounter Care Teams Associate Professor Of Communication Relationship Specialty Start Date End Date Shayla Alford D.O. PCP - General Internal Medicine 05/22/[address] [phone] documented as of this encounter
--- OUTSIDE RECORDS SUMMARY | 2022-05-21 11:15 | XMS_ITS | Encounter Summary ---
:1945 Author Organization [facility] Address [address] [place] [address] Care Team Providers Name Role Phone Shayla Alford D.O. Primary Care Provider [phone] Reason for Visit Reason Comments Stroke Ref. Dr. Page Appointment Request (Routine) - Closed Specialty Diagnoses / Procedures Referred By Contact Refer red To Contact Neurology Diagnoses Infarction Cerebral (HCC) Dakotah Page M.D. [facility] Procedures Consult [address] [place], [place] [address] Referral ID Status Reason Start Date Expiration Date Visits Requ ested Visits Authorized [id number] Closed 01/11/2022 07/10/2022 1 1 Encounter Details Date Type Department Care Team Description 02/27/2022 Comprehensive Visit Department of Mari Lala Stroke (HCC) (Primary Dx); Neurology in Pat[place] Noonan, Hemianopsia Jonathan onymous Right [place], [place] M.P.H. [address] [facility] [address] [place], [place] [phone] Social History Tobacco Use Types Packs/Day [...] or relatives? How often do you attend mandaeism or Never 2021 baptism services? Do you belong to any clubs or No 10/09/2021 organizations such as mandaeism groups, unions, fraGridPoint or athletic groups, or school groups? How [...] place to sleep or slept in a custodial (including now)? Education Answer Date Recorded What is the highest level of school Master's degree (e.g., M [place], MS, 03/23/2019 you have completed or the highest Martin, MEd, GLASS CUT OFF SUPERVISOR, CAYDEN) degree you have received? Sex Assigned at Date Recorded Male 05/21/2018 2:34 PM CDT documented as of this encounter Last Filed Vital Signs Vital Sign Reading Time Taken Comments Blood Pressure 137/76 02/27/2022 1:56 PM CDT Pulse 72 02/27/2022 1:56 PM CDT Temperature 36.2 ??C (97.2 ??F) 02/27/2022 1:56 PM CDT Respiratory Rate - - Oxygen Saturation 98% 02/27/2022 1:56 PM room air CDT Inhaled Oxygen Concentration - - Weight 91.6 kg (202 lb) 02/27/2022 1:56 PM per [facility] Not es CDT Height - - Body Mass Index 26.8 10/09/2021 3:28 PM WEB PRODUCTION DESIGNER documented in this encounter Consult Notes Mari Lala M.D., M.P.H. - 02/27/2022 2:30 PM CDT SUBJECTIVE CHIEF COMPLAINT / REASON FOR VISIT Beth Costa is a 76 y.o. male who presents for evaluation of Stroke (Ref. Dr. Page). HISTORY OF PRESENT ILLNESS Patient had evanescent right-sided motor weakness when he was on vacation in [facility] on 12/23/2021. These resolved and the left. The symptoms then recurred a shortly thereafter and he was readmitted to [place] and the right-sided weakness of the arm and leg have never fully resolved. Hehad extensive workup which included a echocardiogram which did not find any potential source for a embolic stroke. He had an MRA which did not find any proximal cause for stroke. His MRI brain showed multiple territories affected which would be strongly suggestive of a cardioembolic source. At the visit today with three family members in all of them asked good questions. HPI: Per ED Beth Costa is a 76 Y male, with a history of TIA, who presents to the emergency department with his for evaluation of stroke like symptoms. The patient's reports that the patient was discharged yesterday from [facility] after having a TIA and completely recovering. His states that the patient was getting out of the car this morning around 1100 when the patient had right sided weakness and slower speech. He was admitted yesterday for his TIA for right sided weakness. His heart rate was noted to be in the 30's per service electrician. The patient denies chest pain, shortnessof breath or headaches. He does not have any numbness, tingling of his extremities. He has not triedany interventions to make his symptoms better. Much of the history is provided by his at bedside. 12/26/2021: The patient is seen resting in bed on the neuro unit. Continues to have right sided weakness, facial droop and dysarthria. Family feels this is slightly worse then yesterday. Echo pending. 12/27/2021: Resting in bed. Neuro status stable and unchanged. Alert and oriented. Denies pain. EP consulted for ILR placement today 12/28/2021: Resting in bed. Alert, oriented and follows all commands. Speech and and swallowing appearto be improving. Right sided weakness unchanged. CT ANGIO HEAD NECK HISTORY: Stroke. COMPARISON: None. TECHNIQUE: 3D radial and/or 3D sagittal MIP reconstructions were obtained and reviewed. Auto dosage reduction and iterative reconstruction techniques employed. FINDINGS: CTA HEAD: There is mild atherosclerotic plaque within the cavernous internal carotid arteries. The anterior cerebral arteries are patent. Middle cerebral arteries are patent. No high-grade stenosis within the intracranial carotid arteries. There is plaque within the vertebral arteries which is mild. Basilar artery is patent. The posterior cerebral arteries are patent. CTA NECK: There is atherosclerotic plaque takeoff of the right vertebral artery with mild narrowing.The right vertebral artery is otherwise patent to the skull base. Tortuous takeoff of the left vertebral artery with atherosclerotic plaque with mild narrowing. The left vertebral artery is patent to the skull base. Takeoff of the right common carotid artery is tortuous. Right common carotid artery ispatent. There is moderate plaque involving the right bulb and there is 50% narrowing at the takeoff of the right ICA and involving the distalmost right common carotid artery. The right external carotidartery is narrowed but does demonstrate flow distal to the narrowing. The left common carotid arteryis patent. There is mild-moderate plaque at the takeoff without hemodynamically significant stenosisof the left internal carotid artery. The left external carotid artery is patent. There is some patchy sinus disease which may be chronic. No air-fluid levels. There are some scattered lymph nodes within the right paratracheal space. No acute osseous abnormality. IMPRESSION: 1. 50% narrowing at the takeoff of the right ICA and distal right common carotid artery. 2. No hemodynamically significant stenosis in the left ICA with plaque at the bulb. 3. Patent cerebral vasculature. Dictated By: Dhiraj Ospina MD 12/24/2021 8:09 [place] [address] Transthoracic Echocardiogram Report Name: BETH COSTA Study Date: 12/24/2021 Performing Location: [facility] : 1945 Gender: Male Height: 72 in Age: 76 yrs Weight: 218 lb BSA: 2.2 m2 BP: 133/83 mmHg HR: 60 Ordering Physician: FRED YOST Referring Physician: NONE Performed By: Jill Eastman Reason For Study: STROKE Interpretation Summary 1. Normal left ventricular size, normal systolic performance, LVEF 55% frequent ectopy may make EF estimate less accurate 2. Moderate concentric left ventricular hypertrophy 3. No significant valvular heart disease 4. Mild biatrial enlargement 5. No shunting at the atrial septal level however, no bubble study performed This document is currently in Final Status Exam MR BRAIN WO CONTRAST INDICATION: Neuro deficit, acute, stroke suspected; COMPARISON: CT head 12/23/2021. FINDINGS: Generalized cerebral and cerebellar volume loss. Foci of T2 hyperintensity in the periventricular and subcortical deep white matter are nonspecific but most compatible with chronic small vessel ischemic changes. Restricted diffusion with corresponding T2 hyperintensity involving the cortex and subcortical white matter of the posterior left frontal lobe measuring 10 mm, and additional punctate foci of restricted diffusion in the posterior right frontal and parietal lobes. Curvilinear area of restricted diffusion in the mesial left temporal lobe and anterior left temporal lobe. Paranasal sinus disease. Chronic lacunar infarcts inferior cerebellar hemispheres. Remainder unremarkable. IMPRESSION: Foci of subacute infarct in multiple vascular distributions as described above. These are likely greater than 24 hours old. Consider an embolic source. Electronically Signed: Zhang Gage MD 12/24/2021 2:15 PM He has regained some movement in the right upper extremi and a little bit in the right lower extremity. He has field cut on the right and recognizes that he can no longer read or watch TV and LEs he turns his head. I spent significant amount of time trying to explain the visual symptoms and reviewed the visual system with in looking at the visual pathways in the lens of the him in visual pathway witha diagram from the Internet. He is not actively getting physical therapy anymore but I encouraged them that they know those exercises they were doing and they continue to do them. The family asked what is likely long-term prognosis was and I explained that it would be impossible to know but that his brain would continue to required so that would always be some amount of progress. I encouraged him to continue this. Her reviewed extensive records from Care everywhere plus some records that brought from [facility]. Past Medical History: Diagnosis Date ??? Apnea Sleep Obstructive 06/18/2011 intolerant to CPAP therapy ??? Asthma (HCC) 10/16/2009 Pulmonary symptomatology, diagnosis at the [place] unclear, but probably some degree of COPD. [...] INSERTION INTRAOCULAR LENS Left 04/2008 At the [place] ??? LASER OF PROSTATE W/ GREEN LIGHT PVP 08/28/2016 Greenlight photoselective vaporization of the prostate and cystoscopy with bladder biopsy and fulguration of a 2cm area; 08/28/[address] Prasanna Bernal at the [facility]. ??? TONSILLECTOMY ??? TONSILLECTOMY 1967 ??? VASECTOMY MEDICATIONS: Current Outpatient Medications: ??? albuterol inhaler, INHALE 2 PUFFS BY INHALATION EVERY 6 HOURS NEEDED FOR SHORTNESS OF BREATHSHAKE WELL (FOR IMMEDIATE RELIEF)., Disp: , Rfl: ??? atorvastatin (for_LIPITOR) 80 mg tablet, Take 80 mg by mouth daily. , Disp: , Rfl: ??? blood sugar diagnostic strips, Reports checking 4-5 times daily. , Disp: , Rfl: ??? cholecalciferol, vitamin D3, 25 mcg (1,000 Unit) tablet, Take 1,000 Units by mouth daily., Disp:, Rfl: ??? clopidogreL (PLAVIX) 75 mg tablet, Take 1 tablet by mouth daily., Disp: , Rfl: ??? empagliflozin (Jardiance) 25 mg tablet, Take 1 tablet (25 mg total) by mouth every morning before breakfast., Disp: 90 tablet, Rfl: 3 ??? escitalopram (LEXAPRO) 10 mg tablet, Take 1 tablet (10 mg total) by mouth daily., Disp: 30 tablet, Rfl: 11 ??? insulin aspart U-100 (NovoLOG FlexPen) 100 unit/mL (3 mL) injection, Inject 11 Units under the skin 3 (three) times a day with meals. (Patient taking differently: Inject 10 Units under the skin 3 (three) times a day with meals.), Disp: , Rfl: ??? insulin glargine (Lantus U-100 Insulin) 100 unit/mL injection, Inject 28 Units under the skin atbedtime. (Patient taking differently: Inject 25 Units under the skin at bedtime.), Disp: 10 mL, Rfl:2 ??? levothyroxine (SYNTHROID, LEVOTHROID) 100 mcg tablet, Take 1 tablet (100 mcg total) by mouth daily., Disp: 90 tablet, Rfl: 3 ??? losartan (COZAAR) 25 mg tablet, Take 2 tablets (50 mg total) by mouth daily., Disp: 180 tablet, Rfl: 3 ??? metoprolol succinate (TOPROL-XL) 25 mg 24 hr tablet, Take 1 tablet (25 mg total) by mouth daily.Do not crush or chew., Disp: 90 tablet, Rfl: 3 ??? mirtazapine (REMERON) 30 mg tablet, Take 30 mg by mouth at bedtime., Disp: , Rfl: ??? PEN NEEDLE, DIABETIC [facility], Yani Fine 30 disposable needles. For use with Insulin Pens, 4 times daily, Disp: , Rfl: ??? semaglutide (Ozempic) 0.25 mg or 0.5 mg(2 mg/1.5 mL) pen injector injection, Initial, 0.25 mg subQ once weekly for 4 weeks, then increase to 0.5 mg once weekly for 4 weeks, then 1mg weekly for 3 months, Disp: 9 mL, Rfl: 3 ??? sennosides (senna) 8.6 mg tablet, Take 8.6 mg by mouth 2 (two) times a day. Give 2 tablets two times a day., Disp: , Rfl: ??? SYRINGE-NEEDLE,INSULIN,0.5 ML (INSULIN SYRINGE [facility]), , Disp: , Rfl: ??? torsemide (DEMADEX) 20 mg tablet, Take 1 tablet (20 mg total) by mouth every morning before breakfast., Disp: 90 tablet, Rfl: 3 ??? traZODone (DESYREL) 100 mg tablet, Take 0.5 tablets (50 mg total) by mouth at bedtime as needed for sleep., Disp: 30 tablet, Rfl: 1 ??? traZODone (DESYREL) 50 mg tablet, Take 1 tablet by mouth at bedtime as needed., Disp: , Rfl: ??? budesonide-formoteroL (SYMBICORT) 160-4.5 mcg/actuation inhaler, Inhale 2 puffs 2 (two) times a day. Start at 1 puff twice daily x 4 weeks, then 2 puffs twice daily if tolerated. (Patient not taking: Reported on 02/27/2022), Disp: 1 Inhaler, Rfl: 11 ??? flash glucose scanning reader (FREESTYLE SOFYA) [facility], 1 each 5 (five) times a day. Use to scan Sofya sensor 5 times daily and as needed. E11.65 Lifetime use. (Patient not taking: Reported on 02/27/2022), Disp: 1 each, Rfl: 0 ??? flash glucose sensor (FREESTYLE SOFYA) kit, 1 each every 14 (fourteen) days. Change sensor every14 days E11.65 E11.40 Lifetime use (Patient not taking: Reported on 02/27/2022), Disp: 6 kit, Rfl: 3 ??? glucose 4 gram chewable tablet, CHEW FOUR TABLETS BY MOUTH NEEDED FOR LOW BLOOD SUGAR, Disp: , Rfl: ??? indomethacin (INDOCIN) 25 mg capsule, Take 25 mg by mouth 3 (three) times a day with meals., Disp: , Rfl: ??? polyethylene glycol (MIRALAX) 17 gram powder packet, Take 17 g by mouth daily. Dissolve each 17 g dose in 240 mLs (8 ounces) of beverage., Disp: , Rfl: ALLERGY: Allergies Allergen Reactions ??? Doxycycline Anaphylaxis and Other (see comments) Bactrim ??? Penicillin Hives and Rash Cerner Listed no Reactions ??? Sulfa (Sulfonamide Antibiotics) Other (see comments) and Anaphylaxis Cerner Listed no Reactions ??? Amlodipine Hypotension, Nausea Only and Other (see comments) ??? Lisinopril Cough ??? Victoza 2-Eyal [Liraglutide] GI intolerance ??? Gadavist [Gadobutrol] GI intolerance Patient vomited after administration Family History Problem Relation Age of Onset [...] Master's degree (e.g., MA, MS, Martin, MEd, GLASS CUT OFF SUPERVISOR, CAYDEN) Occupational History Employer: RETIRED Tobacco Use ??? Smoking status: Former Smoker Packs/day: 2.00 Years: 25.00 Pack years: 50.00 Types: Cigarettes, Pipe Start date: 07/13/1957 Quit date: 1980 Years since quittin.4 ??? Smokeless tobacco: Never Used Substance and [...] and Family: Once a week ??? Attends Scientologist Services: Never ??? Active Member of Clubs [...] Unstable Housing in the Last Year: No @ OBJECTIVE Vitals: 02/27/22 1356 BP: 137/76 BP Location: Left arm Patient Position: Sitting Cuff Size: Regular Pulse: 72 Temp: 36.2 ??C TempSrc: Temporal SpO2: 98% Weight: 91.6 kg PHYSICAL EXAM COGNITION: Alert and oriented x 4. 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 He has a little bit of dysarthria as well MOTOR: he is a little bit of movement in the hand and extensor is in the right lower extremity reflexes are correspondingly brisk on the right but not the left. REFLEXES: Normal and symmetric at the biceps, triceps, brachioradialis, knees, and ankles. SENSORY: sensation to light touch is preserved on the right and there is no double simultaneous extinction. GAIT: this was not testable. ASSESSMENT / PLAN Impression: Encounter Diagnoses Name Primary? Stroke ([facility]) Yes ??? 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 I think physical therapy might improve his motor system but the extent to which is hard to now. I think fully his language is preserved except for a mild spastic dysarthria. Anti-platelet therapy is appropriate management for this patient as anticoagulation would be contraindicated. Because multiple vascular territories were involved the only conceivable cause would been acardiac emboli but none was found. I would think prolonged cardiac monitoring is the appropriate nissa gement. I agree with the Plavix and physical therapy going forward. I will be happy to see him on a p.r.n. basis going forward. I personally spent 70 minutes in care of the patient today. Time includes both non face to face and face to face patient care. Mari Lala M.D., M.P.H. documented in this encounter Plan of Treatment Not on filedocumented as of this encounter Visit Diagnoses Diagnosis Stroke (HCC) - Primary Hemianopsia Homonymous Right documented in this encounter Additional Health Concerns Assessment Noted Time PHQ-9 Depression Total Score: 18 04/28/2018 11:27 AM C DT documented as of this encounter Care Teams Oven Unloader Relationship Specialty Start Date End Date Shayla Alford D.O. PCP - General Internal Medicine 05/22/20 [address], [place] [phone] documented as of this encounter
--- OUTSIDE RECORDS SUMMARY | 2022-05-21 11:15 | XMS_ITS | Encounter Summary ---
:1945 Author Organization [facility] Address [address] [place] [address] Care Team Providers Name Role Phone Shayla Alford D.O. Primary Care Provider [phone] Reason for Visit Reason Comments Appointment Encounter Details Date Type Department Care Team Description 01/31/2022 Clinical Communication Department of Urology Lea Morin, Appointment in [facility] R.N. [address] [place] [address] [place], [place] [phone] Social History Tobacco Use Types Packs/Day Years [...] or relatives? How often do you attend scientology or Never 2021 alevism services? Do you belong to any clubs or No 10/09/2021 organizations such as scientology groups, unions, fraternal or athletic groups, or [...] place to sleep or slept in a detention (including now)? Education Answer Date Recorded What is the highest level of school Master's degree (e.g., M A, MS, 03/23/2019 you have completed or the highest Martin, MEd, DIGESTER COOK, CAYDEN) degree you have received? Sex Assigned at Date Recorded Male 05/21/2018 2:34 PM CDT documented as of this encounter Miscellaneous Notes Telephone Encounter - Jimena Copeland R.N. - 02/04/2022 4:31 PM CDT Patient scheduled for follow-up on 03/04/22 per patients Diallo. Telephone Encounter - Lea Morin R.N. - 02/04/2022 10:14 AM CDT Left message for living facility nurse counseling center manager, Viri, following up with last week to inquire about care conference, non green meat packer cytology urine test if resulted to fax results to [facility] and discuss uro visit. Telephone Encounter - Lea Morin R.N. - 01/31/2022 3:48 PM CDT This encounter with Dr. Bernal' response printed and faxed to [facility]. Will call later to discuss patient's plan and arrange possible urology appointment with Dr. Bernal for a cysto. Telephone Encounter - Lea Morin R.N. - 01/31/2022 10:[address] [facility] nurse counseling center manager, Viri, called urology to confirm urology appointment andto inform team that patient is currently in rehab at the facility but is total care and total [facility]. Patient does not have a catheter but Viri is willing to collect urine for non green meat packer cytology. Viri further mentions again patient is total care, total lift and inquired about priority in care for patient as she's unsure if she'd be able to arrange transportation. With discussion, likelihood of patientstaying fpc at detention, massive stroke who is total care and total lift and not sure howwell he'll tolerate transportation or clinic visit. Care conference at detention with staff and patient's is today, 01/31/22, in which Viri is asked to inform urology if any discussion about plan of care, in particular to clinic urology visits, bladder cancer. Patient is due for 3 month bladder cancer surveillance, which was scheduled 02/11/22 and cancelled due to patient's current situation and Dr. Bernal not being in clinic that day. Non green meat packer cytology urine order faxed to [facility] for Viri to collect urine and will fax back to [facility]. Will also inform Dr. Bernal of patient's change in health and advise if anything further needs. documented in this encounter Plan of Treatment Not on filedocumented as of this encounter Visit Diagnoses Not on filedocumented in this encounter Additional Health Concerns Assessment Noted Time PHQ-9 Depression Total Score: 18 04/28/2018 11:27 AM C DT documented as of this encounter Care Teams Reimbursement Specialist Relationship Specialty Start Date End Date Shayla Alford D.O. PCP - General Internal Medicine 05/22/20 [address] [place] [phone] documented as of this encounter
--- OUTSIDE RECORDS SUMMARY | 2022-05-21 11:15 | XMS_ITS | Encounter Summary ---
:1945 Author Organization [facility] Address [address] [place] [address] Care Team Providers Name Role Phone Shayla Alford D.O. Primary Care Provider [phone] Encounter Details Date Type Department Care Team Description 03/12/2022 Clinical Communication Department of Sleep Mari Lala, Medicine in Pato Vila, M.P .H. [place] [address] [place], [place] [phone] Social History Tobacco Use Types Packs/Day Years [...] or relatives? How often do you attend anglican or Never 2021 oriental orthodox services? Do you belong to any clubs or No 10/09/2021 organizations such as anglican groups, unions, fraternal or athletic groups, or [...] have completed or the highest Martin, MEd, BALL THREAD MACHINE TENDER, CAYDEN) degree you have received? Sex Assigned at Date Recorded Male 05/21/2018 2:34 PM CDT documented as of this encounter Miscellaneous Notes Telephone Encounter - Carole Plunkett L.P.N. - 03/12/2022 3:56 PM CDT SUBJECTIVE CHIEF COMPLAINT / REASON FOR CALL Medication question PLAN The following information was provided: Dr. Lala's recommendation given. Spoke to Viri HAGER Information/Education: patient/caller able to teach back The following references were used: provider Dr. Lala Telephone Encounter - Kira Sorenson - 03/12/2022 10:51 AM CDT Reason for Communication: Nghia calling from [facility], Dr. Amador is wondering if heshould discontinue ASA med.. Patient is currently taking Plavix. Wondering if they can discontinue taking aspirin. Call ALLEY Meredith at Current or [phone] Can Nursing/Provider leave a detailed message?: yes Did the patient refuse triage through Nurse line? (for symptom based concerns): Action Needed: Name of Medication (if relevant): Please send all scheduling replies to scheduling pool. documented in this encounter Plan of Treatment Not on filedocumented as of this encounter Visit Diagnoses Not on filedocumented in this encounter Additional Health Concerns Assessment Noted Time PHQ-9 Depression Total Score: 18 04/28/2018 11:27 AM C DT documented as of this encounter Care Teams Inspector Casing Relationship Specialty Start Date End Date Shayla Alford D.O. PCP - General Internal Medicine 05/22/[address] [phone] documented as of this encounter
--- OUTSIDE RECORDS SUMMARY | 2022-05-21 11:15 | XMS_ITS | Encounter Summary ---
:1945 Author Organization [facility] Address [address] [place] [address] Care Team Providers Name Role Phone Shayla Alford D.O. Primary Care Provider [phone] Encounter Details Date Type Department Care Team Description 01/10/2022 Clinical Communication Department of Internal Andrei Dejesus Medicine in [place], [place], Coleman.O Mauro [place] [address] [place] [phone] Social History Tobacco Use Types Packs/Day Years [...] or relatives? How often do you attend jewish or Never 2021 nondenominational services? Do you belong to any clubs or No 10/09/2021 organizations such as jewish groups, unions, fraternal or athletic groups, or [...] place to sleep or slept in a fdc (including now)? Education Answer Date Recorded What is the highest level of school Master's degree (e.g., M [place], [place], 03/23/2019 you have completed or the highest Martin, MEd, VETERINARY MEDICAL OFFICER, CAYDEN) degree you have received? Sex Assigned at Date Recorded Male 05/21/2018 2:34 PM CDT documented as of this encounter Miscellaneous Notes Telephone Encounter - Yari Monsalve - 01/11/2022 3:19 PM CDT Lauren at [facility] was notified that the referral for neurology is in the patients chart under Document viewer. Lauren would like a call back to have the appointment scheduled once the doctor has time to review it.. Telephone Encounter - Kira Sorenson - 01/11/2022 2:23 PM CDT Riana from [facility] returning call, or [phone] Telephone Encounter - Shanon Glover - 01/11/2022 8:15 AM CDT Staff is calling in and would like a nurse to call her back, to let her know if the fax was received. She also stated that you could call the clinical coordinator , Viri at [phone]. Please advise. Telephone Encounter - Faina Deleon - 01/11/2022 7:19 AM CDT Any referrals we receive we forward to the DOS. Telephone Encounter - Chiqui Parham - 01/10/2022 11:40 AM CDT Reason for Communication: Spoke with Nghia from [facility]. She states she sent over a referral to neurology from the DrMauro [facility] on 01/01 and again today. Requesting a message sent back to watch for the form. Current Can Nursing/Provider leave a detailed message?: yes Did the patient refuse triage through Nurse line? (for symptom based concerns): na Action Needed: Call back when form is received. Name of Medication (if relevant): na Please send all scheduling replies to scheduling pool. documented in this encounter Plan of Treatment Not on filedocumented as of this encounter Visit Diagnoses Not on filedocumented in this encounter Additional Health Concerns Assessment Noted Time PHQ-9 Depression Total Score: 18 04/28/2018 11:27 AM C DT documented as of this encounter Care Teams Sales Office Administrator Relationship Specialty Start Date End Date Shayla Alford D.O. PCP - General Internal Medicine 05/22/20 [address] [place] [phone] documented as of this encounter
--- OUTSIDE RECORDS SUMMARY | 2022-05-21 11:15 | XMS_ITS | Encounter Summary ---
:1945 Author Organization [facility] Address [address] [place] [address] Care Team Providers Name Role Phone Shayla Alford D.O. Primary Care Provider [phone] Reason for Visit Reason Comments canceled colonoscopy Encounter Details Date Type Department Care Team Description 01/01/2022 Clinical Communication Department of Francisco Aguilar [facility] General Surgery in P, M.DMauro colonoscopy [place], [place] [address] [place] [phone] Social History Tobacco Use Types Packs/Day [...] or relatives? How often do you attend christianity or Never 2021 lutheran services? Do you belong to any clubs or No 10/09/2021 organizations such as christianity groups, unions, fraternal or athletic groups, or [...] place to sleep or slept in a fci (including now)? Education Answer Date Recorded What is the highest level of school Master's degree (e.g., M [place], MS, 03/23/2019 you have completed or the highest Martin, MEd, SEWING MACHINE OPERATOR PAPER BAGS, CAYDEN) degree you have received? Sex Assigned at Date Recorded Male 05/21/2018 2:34 PM CDT documented as of this encounter Miscellaneous Notes Telephone Encounter - Rosa Garcia - 01/01/2022 1:29 PM CDT Surgery Scheduling was notified of surgery cancellation. DATE OF PROCEDURE: 01/15 (colonoscopy) SURGEON: nehal REASON FOR CANCELLING: patient is currently in hospital due to a stroke. Patient has been notified, appointments have been canceled, OR has been notified to remove from [facility], patient removed from [place]. documented in this encounter Plan of Treatment Not on filedocumented as of this encounter Visit Diagnoses Not on filedocumented in this encounter Additional Health Concerns Assessment Noted Time PHQ-9 Depression Total Score: 18 04/28/2018 11:27 AM C DT documented as of this encounter Care Teams Feeder Tender Relationship Specialty Start Date End Date Shayla Alford D.O. PCP - General Internal Medicine 05/22/[address] [phone] documented as of this encounter
--- OUTSIDE RECORDS SUMMARY | 2022-05-21 11:15 | XMS_ITS | Encounter Summary ---
:1945 Author Organization [facility] Address [address] [place] [address] Care Team Providers Name Role Phone Shayla Alford D.O. Primary Care Provider [phone] Reason for Visit Appointment Request (Routine) - Closed Specialty Diagnoses / Procedures Referred By Contact Refer red To Contact Community Internal Medicine Referral ID Status Reason Start Date Expiration Date Visits Requ ested Visits Authorized [id number] Closed 12/26/2021 12/26/2022 1 1 Encounter Details Date Type Department Care Team Description 12/26/2021 Virtual Visit Department of Internal Rocío, Stroke (HCC) (Primary Medicine in Shayla Dixon D.O . Dx) [place] [address] [place] [phone] Social History Tobacco Use Types Packs/Day [...] or relatives? How often do you attend evangelical or Never 2021 pentecostal services? Do you belong to any clubs or No 10/09/2021 organizations such as evangelical groups, unions, fraCrowdSling or athletic groups, or school groups? How [...] have completed or the highest Martin, MEd, GUARD CHIEF, CAYDEN) degree you have received? Sex Assigned at Date Recorded Male 05/21/2018 2:34 PM CDT documented as of this encounter Progress Notes Shayla Alford D.O. - 12/26/2021 2:00 PM CDT Patient has sustained a stroke and is in [facility] undergoing treatment. I did speak to his Diallo. He will sign a release and his information will be sent to me for my review. I was unable to conduct a phone visit due to the patient's medical condition at this point. He is awaiting furt her results including echocardiogram Holter monitor. He will likely discharge to rehab facility for physical therapy. Electronically signed by: Shayla Alford D.O. 12/26/21 5:07 PM CDT documented in this encounter Plan of Treatment Not on filedocumented as of this encounter Visit Diagnoses Diagnosis Stroke (HCC) - Primary documented in this encounter Additional Health Concerns Assessment Noted Time PHQ-9 Depression Total Score: 18 04/28/2018 11:27 AM C DT documented as of this encounter Care Teams Nurses Superintendent Relationship Specialty Start Date End Date Shayla Alford D.O. PCP - General Internal Medicine 05/22/[address] [phone] documented as of this encounter
--- OUTSIDE RECORDS SUMMARY | 2022-05-21 11:15 | XMS_ITS | Encounter Summary ---
:1945 Author Organization [facility] Address [address] [place] [address] Care Team Providers Name Role Phone Shayla Alford D.O. Primary Care Provider [phone] Reason for Referral Physical Therapy (Routine) - Authorized Specialty Diagnoses / Procedures Referred By Contact Refer red To Contact Diagnoses Stroke (HCC) Mari Lala M.D., External, Referring M.P.H. Provider [address] [place] [address] Referral ID Status Reason Start Expiration Visits Visits Date Date Requested Authorized [id number] Authorized Service not 03/25/2022 03/25/2023 1 1 available in [facility] Encounter Details Date Type Department Care Team Description 03/19/2022 Clinical Communication Department of Sleep Mari Lala, Medicine in [place], M.P .H. [place] [address] [place], [place] [phone] Social History Tobacco Use Types Packs/Day Years [...] do you attend christianity or Never 2021 judaism services? Do you belong to any clubs [...] place to sleep or slept in a longterm (including now)? Education Answer Date Recorded What is the highest level of school Master's degree (e.g., M A, MS, 03/23/2019 you have completed or the highest Martin, MEd, MAINTENANCE TECHNICIAN 3RD SHIFT, CAYDEN) degree you have received? Sex Assigned at Date Recorded Male 05/21/2018 2:34 PM CDT documented as of this encounter Miscellaneous Notes Telephone Encounter - Carole Plunkett L.PMauroN. - 03/26/2022 10:33 AM CDT Diallo notified that referral for P.T. has been faxed to [facility]. Telephone Encounter - Carole Plunkett L.PMauroN. - 03/19/2022 2:00 PM CDT Needs PT Referral to go to [facility] in [place]. Telephone Encounter - Mamta Olivares - 03/19/2022 1:27 PM CDT Reason for Communication: Patients is calling he has had a stroke and is in [facility] and the PT department there are discontinuing his PT because they feel they have gotten him as far as they can. They would like to have him evaluated and physical therapy at [facility] to see ifadditional progress can be made. Patient feels he can go father if he would have additional therapy.Please call them back at Current Can Nursing/Provider leave a detailed message?: yes Did the patient refuse triage through Nurse line? (for symptom based concerns): na Action Needed: Please call Diallo back Name of Medication (if relevant): na Please send all scheduling replies to scheduling pool. documented in this encounter Plan of Treatment Not on filedocumented as of this encounter Visit Diagnoses Diagnosis Stroke (HCC) - Primary documented in this encounter Additional Health Concerns Assessment Noted Time PHQ-9 Depression Total Score: 18 04/28/2018 11:27 AM C DT documented as of this encounter Care Teams Roll Shop Supervisor Relationship Specialty Start Date End Date Shayla Alford D.O. PCP - General Internal Medicine 05/22/20 [address] [address] documented as of this encounter
--- OUTSIDE RECORDS SUMMARY | 2022-05-21 11:15 | XMS_ITS | Encounter Summary ---
:1945 Author Organization [facility] Address [address] [place] [address] Care Team Providers Name Role Phone Shayla Alford D.O. Primary Care Provider [phone] Encounter Details Date Type Department Care Team Description 11/07/2021 Hospital Encounter Department of Cirilo Bernal Neoplasm Of Laboratory Medicine Pato Mims Bladder Posterior in [place], [address] [address] [place] [phone] Social History Tobacco Use [...] or relatives? How often do you attend baptism or Never 2021 tenriism services? Do you belong to any clubs or No 10/09/2021 organizations such as baptism groups, unions, fraternal or athletic groups, or [...] place to sleep or slept in a skilled nursing (including now)? Education Answer Date Recorded What is the highest level of school Master's degree (e.g., M [place], MS, 03/23/2019 you have completed or the highest Martin, MEd, UNARMED SECURITY OFFICER, CAYDEN) degree you have received? Sex Assigned at Date Recorded Male 05/21/2018 2:34 PM CDT documented as of this encounter Medications at Time of Discharge Medication Sig Dispensed Refills Start Date End Date albuterol inhaler INHALE 2 PUFFS BY 0 INHALATION EVERY 6 HOURS NEEDED FOR SHORTNESS OF BREATHSHAKE WELL (FOR IMMEDIATE RELIEF). atorvastatin Take 80 mg by mouth 0 (for_LIPITOR) 80 mg daily. tablet blood sugar diagnostic Reports checking 4-5 0 strips times daily. budesonide-formoteroL Inhale 2 puffs 2 1 Inhaler 11 06/30/20 20 (SYMBICORT) 160-4.5 (two) times a day. mcg/actuation Start at 1 puff inhalerIndications: twice daily x 4 Asthma Extrinsic weeks, then 2 puffs Moderate (HCC) twice daily if tolerated. cholecalciferol, vitamin Take 1,000 Units by 0 D3, 25 mcg (1,000 Unit) mouth daily. tablet clopidogreL (PLAVIX) 75 Take 1 tablet by 0 2015 mg tablet mouth daily. empagliflozin Take 1 tablet (25 mg 90 tablet 3 07/10/2021 (Jardiance) 25 mg total) by mouth tabletIndications: every morning before Diabetes Mellitus Type 2 breakfast. With Diabetic Neuropathy (HCC), Diabetes Mellitus Type 2 Hyperglycemia (HCC) escitalopram (LEXAPRO) Take 1 tablet (10 mg 30 tablet 11 10 mg tablet total) by mouth daily. flash glucose scanning 1 each 5 (five) 1 each 0 03/02/20 21 reader (FREESTYLE SOFYA) times a day. Use to muscogee scan Sofya sensor 5 times daily and as needed. E11.65 Lifetime use. flash glucose sensor 1 each every 14 6 kit 3 03/02/2021 (FREESTYLE SOFYA) kit (fourteen) days. Change sensor every 14 days E11.65 E11.40 Lifetime use glucose 4 gram chewable CHEW FOUR TABLETS BY 0 tablet MOUTH NEEDED FOR LOW BLOOD SUGAR indomethacin (INDOCIN) Take 25 mg by mouth 0 11/2020 25 mg capsule 3 (three) times a day with meals. insulin aspart U-100 Inject 11 Units 0 02/22/2021 (NovoLOG FlexPen) 100 under the skin 3 unit/mL (3 mL) injection (three) times a day with meals. levothyroxine Take 1 tablet (100 90 tablet 3 01/30/2021 (SYNTHROID, LEVOTHROID) mcg total) by mouth 100 mcg tablet daily. losartan (COZAAR) 25 mg Take 2 tablets (50 180 tablet 3 09/2910/09/2022 tablet mg total) by mouth daily. metoprolol succinate Take 1 tablet (25 mg 90 tablet 3 06/1906/19/2022 (TOPROL-XL) 25 mg 24 hr total) by mouth tabletIndications: daily. Do not crush Hypertension Essential or chew. Primary PEN NEEDLE, DIABETIC Yani Fine 30 0 [facility] disposable needles. For use with Insulin Pens, 4 times daily SYRINGE-NEEDLE,INSULIN,0 0 .5 ML (INSULIN SYRINGE [facility]) torsemide (DEMADEX) 20 Take 1 tablet (20 mg 90 tablet 3 07/202210/09/2022 mg tabletIndications: total) by mouth Hypertension Essential every morning before Primary breakfast. traZODone (DESYREL) 100 Take 0.5 tablets (50 30 tablet 1 07/10/2022 mg tablet mg total) by mouth at bedtime as needed for sleep. traZODone (DESYREL) 50 Take 1 tablet by 0 021 mg tablet mouth at bedtime as needed. budesonide-formoteroL Inhale 2 puffs daily 0 10/0 10/201911/19/2021 (SYMBICORT) 160-4.5 as needed. mcg/actuation inhaler dulaglutide (Trulicity) Inject 0.5 mL (0.75 0.5 mL 3 04/202211/29/2021 0.75 mg/0.5 mL mg total) under the injectionIndications: skin every 7 (seven) Diabetes Mellitus Type 2 days. With Diabetic Chronic Kidney Disease (HCC) insulin glargine (Lantus Inject 30 Units 0 202011/29/2021 U-100 Insulin) 100 under the skin at unit/mL bedtime. injectionIndications: Diabetes Mellitus Type 2 Hyperglycemia (HCC) documented as of this encounter Plan of Treatment Not on filedocumented as of this encounter Procedures Procedure Name Priority Date/Time Associated Diagnosis Comme nts BACTERIAL CULTURE, Routine 11/07/2021 8:30 AM Malignant Neopla sm Results for this AEROBIC + SUSC, AUTOMATED MANUFACTURING INSTRUCTOR Of Bladder Posterior proc edure are in URINE Wall (HCC) the results section. documented in this encounter Results (ABNORMAL) Bacterial Culture, Aerobic + Susc, Urine (11/07/2021 8:30 AM AUTOMATED MANUFACTURING INSTRUCTOR) Analysis Performed At [facility] Time Signature Urine Culture Mixed 11/08/2021 [facility] surekha. (A) 10:55 AM AUTOMATED MANUFACTURING INSTRUCTOR Specimen Anatomical Collection Method Collection Time Receive d Time (Source) Location / / Volume Laterality Urine (Urine, 11/07/2021 8:30 AM 11/07/19 22 2:14 Midstream) AUTOMATED MANUFACTURING INSTRUCTOR PM AUTOMATED MANUFACTURING INSTRUCTOR Comment: Specimen Source Site: Urine Mid stream Prasanna Bernal M.D. 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 PCP - General Internal Medicine 05/22/[address] [phone] documented as of this encounter
--- OUTSIDE RECORDS SUMMARY | 2022-05-21 11:15 | XMS_ITS | Encounter Summary ---
:1945 Author Organization [facility] Address [address] [place] [address] Care Team Providers Name Role Phone Shayla Alford D.O. Primary Care Provider [phone] Encounter Details Date Type Department Care Team Description 11/07/2021 Orders Only Department of Internal Rocío Medicine in [place], [place], [place].Jason Wade [place] [address] [place] [phone] (Wo rk) Social History Tobacco Use Types [...] or relatives? How often do you attend episcopal or Never 2021 confucianist services? Do you belong to any clubs or No 10/09/2021 organizations such as episcopal groups, unions, fraternal or athletic groups, or [...] place to sleep or slept in a usp (including now)? Education Answer Date Recorded What is the highest level of school Master's degree (e.g., M A, MS, 03/23/2019 you have completed or the highest Martin, MEd, CARDIOVASCULAR INVASIVE SPECIALIST, CAYDEN) degree you have received? Sex Assigned at Date Recorded Male 05/21/2018 2:34 PM CDT documented as of this encounter Plan of Treatment Not on filedocumented as of this encounter Visit Diagnoses Not on filedocumented in this encounter Additional Health Concerns Assessment Noted Time PHQ-9 Depression Total Score: 18 04/28/2018 11:27 AM C DT documented as of this encounter Care Teams Professor Of Voice Relationship Specialty Start Date End Date Shayla Alford D.O. PCP - General Internal Medicine 05/22/[address] [phone] documented as of this encounter
--- OUTSIDE RECORDS SUMMARY | 2022-05-21 11:15 | XMS_ITS | Encounter Summary ---
:1945 Author Organization [facility] Address [address] [place] [address] Care Team Providers Name Role Phone Shayla Alford D.O. Primary Care Provider [phone] Encounter Details Date Type Department Care Team Description 03/27/2022 Clinical Communication Department of Neurology Mari Lala, in [facility] cameron Whyte, M.P.H. [address] [place] [address] [address] [facility] [place] [phone] Social History Tobacco Use Types Packs/Day [...] or relatives? How often do you attend episcopalian or Never 2021 denominational services? Do you belong to any clubs or No 10/09/2021 organizations such as episcopalian groups, unions, fraternal or athletic groups, or [...] place to sleep or slept in a mcfp (including now)? Education Answer Date Recorded What is the highest level of school Master's degree (e.g., M A, MS, 03/23/2019 you have completed or the highest Martin, MEd, MASTER BARBER, CAYDEN) degree you have received? Sex Assigned at Date Recorded Male 05/21/2018 2:34 PM CDT documented as of this encounter Miscellaneous Notes Telephone Encounter - Carole Plunkett L.P.N. - 03/28/2022 8:03 AM CDT SUBJECTIVE CHIEF COMPLAINT / REASON FOR CALL Plavix PLAN The following information was provided: Dr. Lala's recommendation given. Instructions given to Viri at [facility]. Information/Education: patient/caller able to teach back The following references were used: provider Dr. Lala Telephone Encounter - Carole Plunkett L.P.N. - 03/27/2022 2:04 PM CDT Viri at [facility] stated that Plavix had a stop date at 87 days after being in hospital in [place]. Today is the 87 th day. Need to know if this is to be continued? Do not reorder to a pharmacy. Fax script to [facility] or give verbal order. Telephone Encounter - Raheem Patel - 03/27/2022 12:42 PM CDT Reason for Communication: Viri nurse from [facility] called and is needing clarification she said Fromdr. lala on the patients Plavix medication, please advise. Current Can Nursing/Provider leave a detailed message: no Did the patient refuse triage through Nurse line? (for symptom based concerns): Action Needed: Name of Medication (if relevant): documented in this encounter Plan of Treatment Not on filedocumented as of this encounter Visit Diagnoses Not on filedocumented in this encounter Additional Health Concerns Assessment Noted Time PHQ-9 Depression Total Score: 18 04/28/2018 11:27 AM C DT documented as of this encounter Care Teams Mandrel Maker Relationship Specialty Start Date End Date Shayla Alford D.O. PCP - General Internal Medicine 05/22/[address] [phone] documented as of this encounter
--- OUTSIDE RECORDS SUMMARY | 2022-05-21 11:15 | XMS_ITS | Encounter Summary ---
:1945 Author Organization [facility] Address [address] [place] [address] Care Team Providers Name Role Phone Shayla Alford D.O. Primary Care Provider [phone] Reason for Visit Reason Comments Lesion Outpatient (Routine) - Closed Specialty Diagnoses / Procedures Referred By Contact Refer red To Contact Dermatology Diagnoses Lesion Skin Shayla Alford D.O. [facility] Region [address] [place] [address] Referral ID Status Reason Start Date Expiration Date Visits V isits Requested Authorized [id number] Closed Specialty 09/13/2021 09/13/2022 1 1 Services Required Encounter Details Date Type Department Care Team Description 11/19/2021 Comprehensive Visit Department of Jose Enrique, Phyllis, Hyperpl alberto Dermatology in [facility] C.N.P., Sebaceous [place], [place] M.S.N. [address] [facility] [address] [place], [place] [phone] Social History Tobacco Use Types Packs/Day [...] or relatives? How often do you attend methodist or Never 2021 holiness services? Do you belong to any clubs or No 10/09/2021 organizations such as methodist groups, unions, fraCentrify or athletic groups, or school groups? How [...] have completed or the highest Martin, MEd, ACCOUNT CLERK, CAYDEN) degree you have received? Sex Assigned at Date Recorded Male 05/21/2018 2:34 PM CDT documented as of this encounter Progress Notes Phyllis Quispe, FAROOQ, C.N.P., M.S.N. - 11/19/2021 10:00 AM CST SUBJECTIVE CHIEF COMPLAINT / REASON FOR VISIT Lesion. HISTORY OF PRESENT ILLNESS Jonnathan Costa is a 76 y.o. male who presents for evaluation of a lesion by his right ear that has been present for 1-2 years. He denies any symptoms to the area. Per nursing notes: Chief Complaint (Reason for visit): Spot by right ear How long has lesion(s) been present, any symptoms (pain, bleeding, or itching)? : 1-2 years, no symptoms Was patient referred, self referred, or a returning derm patient? : Dr Andrei Dejesus referral Personal or family history of skin cancer or other skin condition? : Had a spot on nose removed, believes it was a skin cancer Any other skin concerns today? : None REVIEW OF SYSTEMS Constitutional, integumentary, and allergic/immunologic review of systems is negative except as otherwise remarked above or below. OBJECTIVE PHYSICAL EXAM General: Well-appearing male in no acute distress. Well groomed and dressed and answers appropriately to questions. Skin: I have examined the face, on the right preauricular cheek there is a 8-10 mm slightly raised flesh-colored 6-8 mm papule with yellow globules and coronal vessels consistent with sebaceous hyperplasia. ASSESSMENT / PLAN #1 Hyperplasia Sebaceous The benign nature of the skin lesion(s) was discussed with the patient. No treatment is required. I recommend continued observation. Should symptoms or changes develop related to this condition, I would recommend a return visit for reassessment. PATIENT EDUCATION Ready to learn, no apparent learning barriers were identified; learning preferences include listening. Explained diagnosis and treatment plan; patient expressed understanding of the content. This note represents shared documentation between the assisting nurse and the encounter provider. The content has been reviewed and edited as needed by the provider. GER BUDGET documented in this encounter Plan of Treatment Not on filedocumented as of this encounter Visit Diagnoses Diagnosis Hyperplasia Sebaceous documented in this encounter Additional Health Concerns Assessment Noted Time PHQ-9 Depression Total Score: 18 04/28/2018 11:27 AM C DT documented as of this encounter Care Teams Test Man Relationship Specialty Start Date End Date Shayla Alford D.O. PCP - General Internal Medicine 05/22/[address] [phone] documented as of this encounter
--- OUTSIDE RECORDS SUMMARY | 2022-05-21 11:15 | XMS_ITS | Encounter Summary ---
:1945 Author Organization [facility] Address [address] [place] [address] Care Team Providers Name Role Phone Shayla Alford D.O. Primary Care Provider [phone] Encounter Details Date Type Department Care Team Description 12/24/2021 Clinical Communication Department of Internal Andrei Dejesus Medicine in [place], [place], [place] [address] [place] [phone] Social History Tobacco Use Types Packs/Day Years [...] or relatives? How often do you attend yazdanism or Never 2021 sabianism services? Do you belong to any clubs or No 10/09/2021 organizations such as yazdanism groups, unions, fraternal or athletic groups, or [...] place to sleep or slept in a care home (including now)? Education Answer Date Recorded What is the highest level of school Master's degree (e.g., M [place], [place], 03/23/2019 you have completed or the highest Martin, MEd, MARKET DEVELOPMENT TRAINER, CAYDEN) degree you have received? Sex Assigned at Date Recorded Male 05/21/2018 2:34 PM CDT documented as of this encounter Miscellaneous Notes Telephone Encounter - Irene Benson R.N. - 12/24/2021 11:43 AM CDT SUBJECTIVE CHIEF COMPLAINT / REASON FOR CALL No chief complaint on file. Information Discussed Contacted patient , Diallo (MATTHEW on file) to discuss post hospital follow up for Jonnathan. She informed me that he will have an MRI later today around 1500 and then if all goes as plan patient will be discharged from [facility] later this afternoon. I informed her that any medication changes or adjustments can be addressed at [facility] appointment on 12/27 and the hospital team will prescribe any medications that may be necessary prior to that appointment. I discussed with Diallo that she can discussneurology follow up at [facility] appointment as well. I did offer them a sooner appointment on 12/26 but she declined as they will still be out of town. Diallo verbalized understanding of the plan outlined above and encouraged to call back with any new concerns prior to appointment with Dr. Reid on 12/27. PLAN Disposition/Recommendation: self-care is appropriate at this time, patient encouraged to call back with questions Information/Education: patient/caller able to teach back Caller agreeable to plan of care: yes The following references were used: nursing clinical judgement Telephone Encounter - Varsha Bhatai - 12/24/2021 10:50 AM CDT Reason for Communication: Pt's calling in. She reported pt is currently in hospital in [place]. 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 reports pt feeling fine now and will discharge today. Pt's is wondering about a potential increase or change in meds to prevent this from happening again. She said she is also wondering if pt should have consult with [place] neurologist as well. Pt's would like a call today (12/25), so she can pass on any information from PCP to [facility]. Post hospital FU scheduled with PCP on 12/27. Current Can Nursing/Provider leave a detailed message?: Yes Did the patient refuse triage through Nurse line? (for symptom based concerns): Action Needed: Please call pt's Name of Medication (if relevant): Please send all scheduling replies to scheduling pool. documented in this encounter Plan of Treatment Not on filedocumented as of this encounter Visit Diagnoses Not on filedocumented in this encounter Additional Health Concerns Assessment Noted Time PHQ-9 Depression Total Score: 18 04/28/2018 11:27 AM C DT documented as of this encounter Care Teams Personal Service Representative Relationship Specialty Start Date End Date Shayla Alford D.O. PCP - General Internal Medicine 05/22/[address] [place] [phone] documented as of this encounter
--- OUTSIDE RECORDS SUMMARY | 2022-05-21 11:15 | XMS_ITS | Encounter Summary ---
:1945 Author Organization [facility] Address [address] [place] [address] Care Team Providers Name Role Phone Shayla Alford D.O. Primary Care Provider [phone] Encounter Details Date Type Department Care Team Description 11/07/2021 Clinical Communication Department of Internal Andrei Dejesus Medicine in [place], [place], [place] [address] [place] [phone] Social History Tobacco Use Types Packs/Day Years [...] do you attend mandaen or Never 2021 denominational services? Do you [...] place to sleep or slept in a halfway (including now)? Education Answer Date Recorded What is the highest level of school Master's degree (e.g., M [place], [place], 03/23/2019 you have completed or the highest Martin, MEd, ADOLESCENT COUNSELOR, CAYDEN) degree you have received? Sex Assigned at Date Recorded Male 05/21/2018 2:34 PM CDT documented as of this encounter Miscellaneous Notes Telephone Encounter - Jacquie Hamilton L.P.N. - 11/07/2021 11:35 AM ANESTHESIOLOGY TEACHER Patient called and given recent lab findings along with advisement from provider per Dr Reid direction. Copy of message sent to patient via his patient portal per his direction THESIOLOGY TEACHER Telephone Encounter - Jacquie Hamilton LMauroPMauroN. - 11/07/2021 11:33 AM ANESTHESIOLOGY TEACHER ----- Message from Shayla Alford D.O. sent at 11/07/2021 11:24 AM ANESTHESIOLOGY TEACHER ----- Please, call patient following information. Good news, your sodium potassium kidney function look good. In fact, your kidney function has improved and your creatinine is down to 1.4 from 1.9. This is the best creatinine you have had over the past year. Your hemoglobin A1c or diabetic number has not changed and is still at 9. [facility] and discuss the new medication and starting the Trulicity. You will need an appointment to continue working on medication adjustments to avoid hypoglycemia or low sugar with this new medication. As far as your preop medication management here are the instructions. Hold your losartan the morning of the procedure Hold your Jardiance the morning of the procedure Take half your Lantus the night before the procedure Hold your morning short-acting NovoLog today of the procedure Nursing, please verify with the patient that he is no longer taking the metformin due to kidney function decline. He should be only on the Jardiance, Lantus, NovoLog and now the Trulicity if he is ableto obtain from the [facility]. once the Trulicity has started, they will likely start decreasing his insulindose to avoid hypoglycemia episodes. I placed a referral for him to also work with our pharmacist jian who does excellent job at titrating medications especially diabetic medications Electronically signed by: Shayla Alford D.O. 11/07/21 11:23 AM ANESTHESIOLOGY TEACHER THESIOLOGY TEACHER documented in this encounter Plan of Treatment Not on filedocumented as of this encounter Visit Diagnoses Not on filedocumented in this encounter Additional Health Concerns Assessment Noted Time PHQ-9 Depression Total Score: 18 04/28/2018 11:27 AM C DT documented as of this encounter Care Teams Cpr Instructor Relationship Specialty Start Date End Date Shayla Alford D.O. PCP - General Internal Medicine 05/22/[address] [phone] documented as of this encounter
--- OUTSIDE RECORDS SUMMARY | 2022-05-21 11:15 | XMS_ITS | Encounter Summary ---
:1945 Author Organization [facility] Address [address] [place] [address] Care Team Providers Name Role Phone Shayla Alford D.O. Primary Care Provider [phone] Reason for Visit Reason Comments Form Review [facility] Encounter Details Date Type Department Care Team Description 02/28/2022 Clinical Communication Department of Alexys marin Review Internal Medicine Shayla queen ([facility] in [place], D.O. - labs ) [place] [address] [place] [phone] Social History Tobacco Use [...] do you attend sikhism or Never 2021 synagogue services? Do you belong to any clubs [...] have completed or the highest Martin, MEd, CHANNEL PROCESS SUPERVISOR, CAYDEN) degree you have received? Sex Assigned at Date Recorded Male 05/21/2018 2:34 PM CDT documented as of this encounter Miscellaneous Notes Telephone Encounter - Vanesa Lee - 03/04/2022 8:40 AM CDT Form completed by the provider. Faxed back and sent to scanning. Telephone Encounter - Vanesa Lee - 02/28/2022 2:45 PM CDT Form emailed to Dr. Franklin Dejesus for review/signature SURVEY COORDINATOR: Ugo Blanco PHONE NUMBER: [phone] INFO REQUESTED: Labs INSTRUCTIONS: Fax back to [phone] documented in this encounter Plan of Treatment Not on filedocumented as of this encounter Visit Diagnoses Not on filedocumented in this encounter Additional Health Concerns Assessment Noted Time PHQ-9 Depression Total Score: 18 04/28/2018 11:27 AM C DT documented as of this encounter Care Teams It Program Auditor Relationship Specialty Start Date End Date Shayla Alford D.O. PCP - General Internal Medicine 05/22/[address] [address] documented as of this encounter
--- OUTSIDE RECORDS SUMMARY | 2022-05-21 11:15 | XMS_ITS | Encounter Summary ---
:1945 Author Organization [facility] Address [address] [place] [address] Care Team Providers Name Role Phone Shayla Alford D.O. Primary Care Provider [phone] Reason for Visit Reason Comments Form Review [facility] statement of barney ertifying physician Encounter Details Date Type Department Care Team Description 11/14/2021 Clinical Communication Department of Alexys marin Review Internal Medicine Shayla queen ([facility] in [place] statement [facility] [address] [facility] physician) [place] [phone] Social History Tobacco Use Types Packs/Day Years [...] many times do you More than three juinto es a week 10/09/2021 talk on the phone with family, friends, or neighbors? How often do you get together with friends Once a week 10/09/2021 or relatives? How often do you attend faith or Never 2021 samaritan services? Do you belong to any clubs or No 10/09/2021 organizations such as faith groups, unions, fraternal or athletic groups, or [...] have completed or the highest Martin, MEd, UTILITY SYSTEM OPERATOR, CAYDEN) degree you have received? Sex Assigned at Date Recorded Male 05/21/2018 2:34 PM CDT documented as of this encounter Miscellaneous Notes Telephone Encounter - Sheyla Obrien - 11/15/2021 4:41 PM CST Form faxed back to facility and sent for scanning. K SPOTTER Telephone Encounter - Sheyla Obrien - 11/14/2021 9:48 AM CST Form was emailed to Dr. Alford for electronic review/signature. PREPARATION SUPERVISOR CANNING: Gabe Lontra PHONE NUMBER: [phone] INFO REQUESTED: Statement of certifying physician INSTRUCTIONS: Fax information to [phone] K SPOTTER documented in this encounter Plan of Treatment Not on filedocumented as of this encounter Visit Diagnoses Not on filedocumented in this encounter Additional Health Concerns Assessment Noted Time PHQ-9 Depression Total Score: 18 04/28/2018 11:27 AM C DT documented as of this encounter Care Teams Facial Operator Relationship Specialty Start Date End Date Shayla Alford D.O. PCP - General Internal Medicine 05/22/[address] [phone] documented as of this encounter
--- OUTSIDE RECORDS SUMMARY | 2022-05-21 11:15 | XMS_ITS | Encounter Summary ---
:1945 Author Organization [facility] Address [address] [place] [address] Care Team Providers Name Role Phone Shayla Alford D.O. 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 [facility] Procedures Cystoscopy (specific provider) [address] [place] [address] Referral ID Status Reason Start Date Expiration Date Visits V isits Requested Authorized [id number] Authorized 11/19/2021 11/19/2022 1 1 WORKER Reason for Visit Reason Comments Post-op Bladder Cancer Outpatient (Routine) - Closed Specialty Diagnoses / Procedures Referred By Contact Refer red To Contact Urology Prasanna Bernal M.D. [facility] Region [address] [place] [address] Referral ID Status Reason Start Date Expiration Date Visits Requ ested Visits Authorized [id number] Closed 10/25/2021 10/25/2022 1 1 Encounter Details Date Type Department Care Team Description 11/19/2021 Office Visit Department of Urology Prasanna Bernal Mal ignant Neoplasm Of in [place] M.D. Bladder Posterior Wall [address] [facility]) (Primary Dx) [place] [phone] Social History Tobacco Use [...] or relatives? How often do you attend mosque or Never 2021 bahai services? Do you belong to any clubs or No 10/09/2021 organizations such as mosque groups, unions, fraternal or athletic groups, or [...] place to sleep or slept in a correction (including now)? Education Answer Date Recorded What is the highest level of school Master's degree (e.g., M A, MS, 03/23/2019 you have completed or the highest Martin, MEd, MEDICAL ASSISTANT PER DIEM, CAYDEN) degree you have received? Sex Assigned at Date Recorded Male 05/21/2018 2:34 PM CDT documented as of this encounter Last Filed Vital Signs Vital Sign Reading Time Taken Comments Blood Pressure - - Pulse 57 11/19/2021 8:04 AM BONE WORKER Temperature - - Respiratory Rate - - Oxygen Saturation 98% 11/19/2021 8:04 AM BONE WORKER room ai r Inhaled Oxygen Concentration - - Weight - - Height - - Body Mass Index - - documented in this encounter Progress Notes Prasanna Bernal M.D. - 11/19/2021 8:15 AM CST SUBJECTIVE CHIEF COMPLAINT / REASON FOR VISIT Bladder cancer HISTORY OF PRESENT ILLNESS Jonnathan Costa is a 76 y.o. male who has a history of bladder cancer. His original resection was on May 22, 2016. 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 He had a recurrence which was resected on July 18, 2021. This was on the posterior wall, high-grade noninvasive papillary urothelial carcinoma. He then received BCG. Cystoscopy on October 25, 2021 suggested a recurrence. He was taken to the operating room on November 14, 2021for resection and is here to review the pathology and have his catheter removed. The following portions of the patient's history were reviewed and updated as appropriate: allergies,current medications, family history, medical history, social history, surgical history and problem list. OBJECTIVE VITAL SIGNS Pulse (!) 57 SpO2 98% Comment: room air A) BLADDER, RANDOM ANTERIOR WALL, BIOPSY: 1. Mild urothelial atypia consistent with prior intravesical treatment effect 2. Sampling includes: Urothelium, lamina propria, muscularis propria 3. Negative for in-situ or invasive carcinoma B) BLADDER, RANDOM RIGHT LATERAL WALL, BIOPSY: 1. Mild urothelial atypia consistent with prior intravesical treatment effect 2. Sampling includes: Urothelium, lamina propria 3. Negative for in-situ or invasive carcinoma C) BLADDER, RANDOM LEFT LATERAL WALL, BIOPSY: 1. Mild urothelial atypia consistent with prior intravesical treatment effect 2. Sampling includes: Urothelium, lamina propria 3. Negative for in-situ or invasive carcinoma D) BLADDER, RANDOM DOME, BIOPSY: 1. No diagnostic alterations 2.??Sampling includes: Urothelium, lamina propria 3. Negative for atypia and malignancy E) BLADDER, SUSPICIOUS AREA POSTERIOR WALL, TRANSURETHRAL RESECTION: 1. Resection site changes with granulation tissue and fibroinflammatory infiltrate 2. Negative for residual papillary urothelial carcinoma 3. Negative for invasive tumor 4. Sampling includes: Urothelium, lamina propria, muscularis propria at ??2:30 PM The patient's bladder was filled with approximately 100 mL of sterile saline. The catheter is removed and he voided probably. 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 Cystoscopic changes are consistent with granulation tissue and inflammatory changes. PLAN: Return to clinic in three months for bladder cancer surveillance to include cystoscopy and urine cytology. We did discuss the possibility of continuing with maintenance BCG. I explained that prior to the world wide shortage of BCG, we would typically do BCG maintenance for up to three years. I would note that the patient had difficulty with the fifth and sixth instillation of BCG. All things considered, weelected to simply follow him very closely at this time. Prasanna Bernal M.D. 11/19/21 8:45 AM BONE WORKER Answers for HPI/ROS submitted by the patient on 10/09/2021 No general issues: Yes No eye issues: Yes No ENT issues: Yes No heart issues: Yes No respiratory issues: Yes Diarrhea: Yes No muscle/bone issues: Yes No skin issues: Yes Loss of balance or tendency to fall easily: Yes No mental health issues: Yes Bruises/bleeds easily: Yes Frequent urination: Yes Incontinence (urine leakage): Yes WORKER documented in this encounter Plan of Treatment Scheduled Orders Name Type Priority Associated Diagnoses Order S chedule Cytology Non-DIE TRIMMER Pathology and Routine Malignant Neoplasm Expe cted: (Scheduled) Cytology Of Bladder Posterior 022 Wall (HCC) (Approximate), Expires: 11/19/2022 documented as of this encounter Visit Diagnoses Diagnosis Malignant Neoplasm Of Bladder Posterior Wall (HCC) - Primary documented in this encounter Additional Health Concerns Assessment Noted Time PHQ-9 Depression Total Score: 18 04/28/2018 11:27 AM C DT documented as of this encounter Care Teams Computer Compositor Relationship Specialty Start Date End Date Shayla Alford D.O. PCP - General Internal Medicine [address] [place] [address] documented as of this encounter
--- OUTSIDE RECORDS SUMMARY | 2022-05-21 11:15 | XMS_ITS | Encounter Summary ---
:1945 Author Organization [facility] Address [address] [place] [address] Care Team Providers Name Role Phone Shayla Alford D.O. Primary Care Provider Reason for Referral Medication Prior Authorization - Closed Specialty Diagnoses / Procedures Referred By Contact Refer red To Contact Jeison Alford D.O. [address] [place] [phone] Referral ID Status Reason Start Date Expiration Date Visits Requ ested Visits Authorized [id number] Closed 1 1 STOCK CLERK Encounter Details Date Type Department Care Team Description 11/19/2021 Clinical Communication Department of Internal Andrei Dejesus Medicine in [place]hy[place] rubio D.O . [place] [address] [phone] Social History Tobacco Use Types Packs/Day Years [...] or relatives? How often do you attend advent or Never 2021 yazdanism services? Do you belong to any clubs or No 10/09/2021 organizations such as advent groups, unions, fraSungevity or athletic groups, or school groups? How [...] place to sleep or slept in a long term (including now)? Education Answer Date Recorded What is the highest level of school Master's degree (e.g., M A, MS, 03/23/2019 you have completed or the highest Martin, MEd, GAS ADJUSTER, CAYDEN) degree you have received? Sex Assigned at Date Recorded Male 05/21/2018 2:34 PM CDT documented as of this encounter Miscellaneous Notes Telephone Encounter - Yari Lee, C.M.A. - 11/22/2021 3:18 PM DRUM STOCK CLERK Information Discussed Informed patient [facility] Told him the instructions for use as wellas making sure to follow the directions that will be on the box. PLAN Disposition/Recommendation: self-care is appropriate at this time, patient encouraged to call back with questions Information/Education: patient/caller able to teach back Caller agreeable to plan of care: yes The following references were used: provider Dr. Reid STOCK CLERK Telephone Encounter - Anjali Sam - 11/22/2021 3:02 PM CST Patient is calling again to reach a nurse, [phone] STOCK CLERK Telephone Encounter - Chiqui Parham - 11/22/2021 12:25 PM CST Patient called in, returning call to [facility] nurse. Unable to get a hold of a nurse. Please call patientback. STOCK CLERK Telephone Encounter - Yari Lee C.M.Malcolm - 11/20/2021 3:59 PM DRUM STOCK CLERK Prescription put on providers desk for signature. STOCK CLERK Telephone Encounter - Shayla Alford D.O. - 11/20/2021 1:53 PM DRUM STOCK CLERK DONE Electronically signed by: Shayla Alford D.O. 11/20/21 1:53 PM DRUM STOCK CLERK STOCK CLERK Addendum Note - Shayla Alford D.O. - 11/20/2021 1:52 PM DRUM STOCK CLERK Addended by: SHAYLA ALFORD on: 11/20/2021 01:52 PM Modules accepted: Orders STOCK CLERK Addendum Note - Jacquie Hamilton, L.P.NMauro - 11/20/2021 12:19 PM DRUM STOCK CLERK Addended by: JACQUIE HAMILTON on: 11/20/2021 12:19 PM Modules accepted: Orders STOCK CLERK Addendum Note - Jacquie Hamilton L.P.NMauro - 11/20/2021 12:13 PM DRUM STOCK CLERK Addended by: JACQUIE HAMILTON on: 11/20/2021 12:13 PM Modules accepted: Orders STOCK CLERK Addendum Note - Jacquie Hamilton L.P.N. - 11/20/2021 11:50 AM DRUM STOCK CLERK Addended by: JACQUIE HAMILTON on: 11/20/2021 11:50 AM Modules accepted: Orders STOCK CLERK Telephone Encounter - Jacquie Hamilton L.P.N. - 11/20/2021 11:43 AM DRUM STOCK CLERK Prescription for medication Ozempic pended as requested and outlined by Dr Reid for approval. Prescriptions to be faxed to patient's [facility] pharmacy to dispense STOCK CLERK Telephone Encounter - Jacquie Hamilton L.P.NMauro - 11/19/2021 8:55 AM DRUM STOCK CLERK SUBJECTIVE CHIEF COMPLAINT / REASON FOR CALL No chief complaint on file. Information Discussed Patient here at clinic with document he received from the [place] pharmacy requesting PCP approve and prescribe taper up for medication OZEMPIC. Document placed in pcp mailbox with pcp to write prescriptionthat is to be faxed to the [place] pharmacy and a copy mailed to patient for OZEMPIC PLAN Disposition/Recommendation: notified provider and awaiting recommendations Information/Education: patient/caller able to teach back Caller agreeable to plan of care: yes The following references were used: other per patient STOCK CLERK documented in this encounter Plan of Treatment Not on filedocumented as of this encounter Visit Diagnoses Not on filedocumented in this encounter Additional Health Concerns Assessment Noted Time PHQ-9 Depression Total Score: 18 04/28/2018 11:27 AM C DT documented as of this encounter Care Teams Operating Manager Relationship Specialty Start Date End Date Shayla Alford D.O. PCP - General Internal Medicine 05/22/[address] [phone] documented as of this encounter
--- OUTSIDE RECORDS SUMMARY | 2022-05-21 11:15 | XMS_ITS | Encounter Summary ---
:1945 Author Organization [facility] Address [address] [place] [address] Care Team Providers Name Role Phone Shayla Alford D.O. Primary Care Provider [phone] Reason for Referral Outpatient (Routine) - Closed Specialty Diagnoses / Procedures Referred By Contact Refer red To Contact Diagnoses Preoperative Exam Shayla Alford [facility] [place] [facility] Procedures ECG 12 Lead D.O. [address] [place] [phone] Referral ID Status Reason Start Date Expiration Date Visits Requ ested Visits Authorized [id number] Closed 11/06/2021 11/06/2022 1 1 AURANT ASSISTANT Reason for Visit Outpatient (Routine) - Closed Specialty Diagnoses / Procedures Referred By Contact Refer red To Contact Diagnoses Preoperative Exam Shayla Alford [facility] [place] [facility] Procedures ECG 12 Lead D.O. [address] [place] [phone] Referral ID Status Reason Start Date Expiration Date Visits Requ ested Visits Authorized [id number] Closed 11/06/2021 11/06/2022 1 1 Encounter Details Date Type Department Care Team Description 11/07/2021 Hospital Encounter Department of Rocío Preop erative Exam Laboratory Medicine in , [place]. [place] [address] [place] [phone] Social History Tobacco Use Types Packs/Day [...] or relatives? How often do you attend roman catholic or Never 2021 cheondoism services? Do you belong to any clubs or No 10/09/2021 organizations such as roman catholic groups, unions, fraternal or athletic groups, or [...] have completed or the highest Martin, MEd, PIPE BOWL PAINT TRIMMER, CAYDEN) degree you have received? Sex Assigned [...] (FREESTYLE SOFYA) times a day. Use to [facility] scan Sofya sensor 5 times daily and [...] PEN NEEDLE, DIABETIC Yani Fine 30 0 MISC disposable needles. For use with Insulin Pens, 4 times daily SYRINGE-NEEDLE,INSULIN,0 0 .5 ML (INSULIN SYRINGE MISC) torsemide (DEMADEX) 20 Take 1 tablet (20 [...] needed. budesonide-formoteroL Inhale 2 puffs daily 0 10/10/201911/19/2021 (SYMBICORT) 160-4.5 as needed. mcg/actuation inhaler dulaglutide [...] Name Priority Date/Time Associated Diagnosis Comme nts ECG Routine 11/07/2021 8:40 AM Preoperative Exam Resu lts for this RESTAURANT ASSISTANT procedure are i n the results section . documented in this encounter Results ECG 12 Lead (11/07/2021 8:40 AM RESTAURANT ASSISTANT) P athologist Signature Ventricular Rate 47 BPM MUSE ECG/Min ME Interval 230 ms MUSE QRSD Interval 112 ms MUSE QT Interval 498 ms MUSE QTC Interval 440 ms MUSE P [place] 87 degrees MUSE R [place] -35 degrees MUSE T Wave [place] 6 degrees MUSE Specimen Anatomical Collection Method Collection Time Receive d Time (Source) Location / / Volume Laterality 11/07/2021 8:40 AM 9:10 RESTAURANT ASSISTANT AM RESTAURANT ASSISTANT Impressions MUSE - 11/07/2021 9:10 AM RESTAURANT ASSISTANT Marked sinus bradycardia with 1st degree A-V block Premature ventricular complexes Low anterior forces Nonspecific T wave abnormality When compared with ECG of 17-NOV-2020 12 :56, Premature ventricular complexes are now present Poor quality in Lead V3 Reviewed by SEAN Weston Narrative This result has an attachment that is no t available. Procedure Note Brody Sorenson M.D. - 11/07/2021Formatt ing of this note might be different from the original. IMPRESSION: Marked sinus bradycardia with 1st degree A-V block Premature ventricular complexes Low anterior forces Nonspecific T wave abnormality When compared with ECG of 17-NOV-2020 12 :56, Premature ventricular complexes are now present Poor quality in Lead V3 Reviewed by SEAN Weston Shayla Alford D.O. ECG ORDERABLES Performing Organization Address City/State/ZIP Code Phon e Number MUSE MUSE NA documented in this encounter Visit Diagnoses Diagnosis Preoperative Exam documented in this encounter Additional Health Concerns Assessment Noted Time PHQ-9 Depression Total Score: 18 04/28/2018 11:27 AM C DT documented as of this encounter Care Teams Signal Technician Relationship Specialty Start Date End Date Shayla Alford D.O. PCP - General Internal Medicine 05/22/20 [address] [place] [phone] documented as of this encounter
--- OUTSIDE RECORDS SUMMARY | 2022-05-21 11:15 | XMS_ITS ---
:1945 Author Organization [facility] Address [address] [place] [address] Care Team Providers Name Role Phone Shayla Alford D.O. Primary Care Provider [phone] Active Problems Patient Care Coordination Note Formatting of this note is different fro m the original. Living Situation/Support: Mr. Costa vikki es in his own home with his . He has support from her as well as his children. Home Medication Information: Medication is??managed by family member,??his .??But he helps as well.??He uses a twice a day pill box. MTM Consult: Declines DME: Glucometer and cane Functional Status: Independent in his ca res. He uses a cane to walk as needed. Community Services/County Contacts: [place] s erkym. 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 Radiation Treatments No radiation treatments are documented for this patient in [facility]. Treatments may have been administered in another system.
--- OUTSIDE RECORDS SUMMARY | 2022-05-21 11:15 | XMS_ITS | Encounter Summary ---
:1945 Author Organization [facility] Address [address] [place] [address] Care Team Providers Name Role Phone Shayla Alford D.O. Primary Care Provider [phone] Encounter Details Date Type Department Care Team Description 11/11/2021 Lab Department of Prasanna Mcdonnell [facility] [address] ([facility]) [place], [place] [address] [facility] [phone] [place] [address] [phone] Social History Tobacco Use Types Packs/Day Years [...] or relatives? How often do you attend hoahaoism or Never 2021 confucianist services? Do you belong to any clubs or No 10/09/2021 organizations such as hoahaoism groups, unions, fraternal or athletic groups, or [...] have completed or the highest Martin, MEd, SLOT MACHINE KEY PERSON, CAYDEN) degree you have received? Sex Assigned at Date Recorded Male 05/21/2018 2:34 PM CDT documented as of this encounter Plan of Treatment Not on filedocumented as of this encounter Procedures Procedure Name Priority Date/Time Associated Diagnosis Comme nts SARS CORONAVIRUS-2 Routine 11/11/2021 8:06 AM Malignant Neopla sm Results for this RNA, V CIRCUS TRAINER Of Bladder Posterior procedu re are in Wall (HCC) the results section. documented in this encounter Results SARS Coronavirus-2 RNA, V Asymptomatic (11/11/2021 8:06 AM CIRCUS TRAINER) [facility] Method Time Signature SARS-CoV-2 Swab, 11/11/2021 MKTO Specimen Nasopharynx 11:29 PM Source CIRCUS TRAINER SARS CoV-2 Undetected Undetected 11/11/2021 MKTO RNA, TMA 11:29 PM CIRCUS TRAINER Comment: SARS-CoV-2 RNA absent. This result does not rule out COVID-19 in the patient, as the sensitivity of the test depends o n the timing of the specimen collection and the quality of the specim en. Result should be correlated with patient's history and clinical presentat ion. ----ADDITIONAL INFORMATION---- This molecular amplification test was pe rformed using the Aptima SARS-CoV-2 assay ([employer] on the [employer] Sys tem under emergency use authorization (EUA) by the U.S. Food and Drug Administ ration. Fact sheets for this EUA assay can be fo und at the following links: For Healthcare Providers: https://www.fd a.gov/media/411020/download For Patients: https://www.fda.gov/media/ 721676/download Specimen Anatomical Collection Method Collection Time Receive d Time (Source) Location / / Volume Laterality Varies 11/11/2021 8:06 AM 4:32 (Nasopharynx) CIRCUS TRAINER PM CIRCUS TRAINER Prasanna Bernal M.D. 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 PCP - General Internal Medicine 05/22/[address] [phone] documented as of this encounter
--- OUTSIDE RECORDS SUMMARY | 2022-05-21 11:15 | XMS_ITS | Encounter Summary ---
:1945 Author Organization [facility] Address [address] [place] [address] Care Team Providers Name Role Phone Shayla Alford D.O. Primary Care Provider [phone] Encounter Details Date Type Department Care Team Description 11/30/2021 Clinical Communication Department of Internal Andrei Dejesus Medicine in [place], [place], [place] Mauro [place] [address] [place] [phone] Social History Tobacco Use Types Packs/Day Years [...] do you attend mandaeism or Never 2021 protestant services? Do you belong to any clubs or No 10/09/2021 organizations such as mandaeism groups, unions, fraternal or athletic groups, or [...] place to sleep or slept in a jail (including now)? Education Answer Date Recorded What is the highest level of school Master's degree (e.g., M [place], MS, 03/23/2019 you have completed or the highest Martin, MEd, SLOT FLOOR ATTENDANT, CAYDEN) degree you have received? Sex Assigned at Date Recorded Male 05/21/2018 2:34 PM CDT documented as of this encounter Miscellaneous Notes Telephone Encounter - Rosa Garcia - 11/30/2021 1:53 PM CST Surgery Scheduling was notified of surgery cancellation. DATE OF PROCEDURE:12-03-21 SURGEON: GERRY REASON FOR CANCELLING: patient has canceled colonoscopy. [facility] has [facility] rescheduled to 01/15/22 with Jeff. A new pre op has been scheduled with Dr. Reid on 01-02. Patient has been notified, appointments have been canceled, OR has been notified to remove from [facility], patient removed from [place]. ER HELPER documented in this encounter Plan of Treatment Not on filedocumented as of this encounter Visit Diagnoses Not on filedocumented in this encounter Additional Health Concerns Infection Onset Date Last Indicated Resolved Time COVID19 Pending 11/29/2021 11/29/2021 12/19/2021 5:54 AM CDT Assessment Noted Time PHQ-9 Depression Total Score: 18 04/28/2018 11:27 AM C DT documented as of this encounter Care Teams Senior Windows Systems Administrator Relationship Specialty Start Date End Date Shayla Alford D.O. PCP - General Internal Medicine 05/22/[address] [phone] documented as of this encounter
--- OUTSIDE RECORDS SUMMARY | 2022-05-21 11:16 | XMS_ITS | Encounter Summary ---
:1945 Author Organization [facility] Address [address] [place] [address] Care Team Providers Name Role Phone Shayla Alford D.O. Primary Care Provider [phone] Reason for Visit Reason Comments URO SURGERY ON 11-14 Encounter Details Date Type Department Care Team Description 10/25/2021 Clinical Communication Department of Alexys URO SURGERY ON 11-14 Internal Medicine Shayla queen in [place], D.O. [place] [address] [place] [phone] Social History Tobacco Use Types Packs/Day [...] or relatives? How often do you attend mormon or Never 2021 anabaptist services? Do you belong to any clubs or No 10/09/2021 organizations such as mormon groups, unions, fraternal or athletic groups, or [...] have completed or the highest Martin, MEd, MASON TENDER RESTORATION LABOR, CAYDEN) degree you have received? Sex Assigned at Date Recorded Male 05/21/2018 2:34 PM CDT documented as of this encounter Miscellaneous Notes Telephone Encounter - Jimena Copeland RMauroNMauro - 10/25/2021 3:53 PM CST Noted in desk calendar. BUSINESS INTERNSHIP Telephone Encounter - Justina Wilkins - 10/25/2021 3:46 PM CST SURGEON: DR. STACY ASSIST: NONE PRE-OP DATE: 11-14-[address] MCCARTY NASAL SWAB: 11-11-21 SURGERY DATE: 11-14-21 DIAGNOSIS: BLADDER TUMOR/ CANCER PROCEDURE: 1. TRANSURTHERAL RESECTION OF BLADDER TUMOR 2. RANDOM BLADDER BIOPSIES 3. ANESTHESIA: [facility] WILL CALL WITH ARRIVAL TIME. BUSINESS INTERNSHIP documented in this encounter Plan of Treatment Not on filedocumented as of this encounter Visit Diagnoses Not on filedocumented in this encounter Additional Health Concerns Assessment Noted Time PHQ-9 Depression Total Score: 18 04/28/2018 11:27 AM C DT documented as of this encounter Care Teams Security Systems Administrator Relationship Specialty Start Date End Date Shayla Alford D.O. PCP - General Internal Medicine 05/22/[address] [phone] documented as of this encounter
--- OUTSIDE RECORDS SUMMARY | 2022-05-21 11:16 | XMS_ITS | Encounter Summary ---
:1945 Author Organization [facility] Address [address] [place] [address] Care Team Providers Name Role Phone Shayla Alford D.Sabrina Primary Care Provider [phone] Reason for Referral Outpatient (Routine) - Closed Specialty Diagnoses / Procedures Referred By Contact Refer red To Contact Diagnoses Cyst Breast Left Shayla Alford [facility] [place] [facility] Procedures BI Ultrasound Breast Axilla Left D[address]. [address], [place] [address] Referral ID Status Reason Start Date Expiration Date Visits Requ ested Visits Authorized [id number] Closed 09/13/2021 09/13/2022 1 1 RVISOR MACHINE SETTER Reason for Visit Outpatient (Routine) - Closed Specialty Diagnoses / Procedures Referred By Contact Refer red To Contact Diagnoses Cyst Breast Left Shayla Alford [facility] [place] [facility] Procedures BI Ultrasound Breast Axilla Left [address], [place] [address] Referral ID Status Reason Start Date Expiration Date Visits Requ ested Visits Authorized [id number] Closed 09/13/2021 09/13/2022 1 1 Encounter Details Date Type Department Care Team Description 10/09/2021 Hospital Encounter Department of Bakkali-Derksen, Cyst Breast Left Radiology in ChambersShayla D. O. [place] [address] [place] [place], [place] [phone] Social History Tobacco Use Types Packs/Day [...] or relatives? How often do you attend pentecostal or Never 2021 alevism services? Do you belong to any clubs or No 10/09/2021 organizations such as pentecostal groups, unions, fraternal or athletic groups, or [...] have completed or the highest Martin, MEd, MAKE UP ARRANGER, CAYDEN) degree you have received? Sex Assigned [...] (FREESTYLE SOFYA) times a day. Use to [facility] scan Sofya sensor 5 times daily and as needed. E11.65 Lifetime use. flash glucose sensor 1 each every 14 6 kit 3 03/02/2021 (FREESTYLE SOFYA) kit (fourteen) days. Change sensor every 14 days E11.65 E11.40 Lifetime use glucose 4 gram chewable CHEW FOUR TABLETS BY 0 tablet MOUTH NEEDED FOR LOW BLOOD SUGAR indomethacin (INDOCIN) Take 25 mg by mouth 0 /11/2020 25 mg capsule 3 (three) times a [...] needed. budesonide-formoteroL Inhale 2 puffs daily 0 1010/201911/19/2021 (SYMBICORT) 160-4.5 as needed. mcg/actuation inhaler gemfibroziL (LOPID) 600 Take 1 tablet by 0 200811/06/2021 mg tablet mouth. insulin glargine (Lantus Inject 30 Units 0 202011/29/2021 U-100 Insulin) 100 under the skin at unit/mL bedtime. injectionIndications: Diabetes Mellitus Type 2 Hyperglycemia (HCC) lisinopriL Take 1 tablet by 0 11/15/2008 11/06/19 22 (PRINIVIL,ZESTRIL) 10 mg mouth daily. tablet metFORMIN (GLUMETZA) Take 1 tablet by 0 9 11/07/2021 1,000 mg 24 hr tablet mouth daily. predniSONE (DELTASONE) 0 09/02/2021 10 mg tablet documented as of this encounter Plan of Treatment Not on filedocumented as of this encounter Procedures Procedure Name Priority Date/Time Associated Comments Diagnosis BI ULTRASOUND RAD - Routine 10/09/2021 10:54 Cyst Breast Left Resul ts for this BREAST AXILLA LEFT (most inpatients AM SUPERVISOR MACHINE SETTER proce dure are in and all the results outpatients) section. documented in this encounter Results BI Ultrasound Breast Axilla Left (10/09/2021 10:54 AM SUPERVISOR MACHINE SETTER) Anatomical Region Laterality Modality Breast, Breast Imaging RST LOS, Breast Imaging FLA LOS Left Ultrasound Specimen (Source) Anatomical Collection Method Collection Time Re ceived Time Location / / Volume Laterality 10/09/2021 10:38 AM SUPERVISOR MACHINE SETTER Impressions 10/09/2021 10:41 AM SUPERVISOR MACHINE SETTER 1. ??Left gynecomastia corresponds with lump. 2. ??No mammographic or sonographic find ings of malignancy. RECOMMENDATION: ??Individualized Recomme ndation Recommend management be based on clinica l grounds. ASSESSMENT: ??BI-RADS: 2: Benign. Narrative 10/09/2021 10:41 AM SUPERVISOR MACHINE SETTER EXAM: ??BI BREAST DIAGNOSTIC BILATERAL WITH TOMOSYNTHESIS, BI ULTRASOUND BREAST AXILLA LEFT INDICATION: ??Palpable lump COMPARISON: ??None. DENSITY: ??b. There are scattered areas of fibroglandular density. FINDINGS: ??Imaging today included bilat eral mammograms and left breast ultrasound. Skin marker placed at lump o n left breast at 3:00 and 8 cm from nipple. Both mammogram and ultrasound sh ow gynecomastia extending from left retroareolar region superiorly and later ally into the posterior breast at lump. No solid or cystic suspicious masses. Ne gative for malignancy. Left axilla is negative for suspicious lymph nodes. Rig ht breast is negative. I discussed findings with patient. He was satisfied. Procedure Note Franklyn Holm M.D. - 10/09/2021 EXAM: BI BREAST DIAGNOSTIC BILATERAL WIT H TOMOSYNTHESIS, BI ULTRASOUND BREAST AXILLA LEFT INDICATION: Palpable lump COMPARISON: None. DENSITY: b. There are scattered areas of fibroglandular density. FINDINGS: Imaging today included bilater al mammograms and left breast ultrasound. Skin marker placed at lump o n left breast at 3:00 and 8 cm from nipple. Both mammogram and ultrasound sh ow gynecomastia extending from left retroareolar region superiorly and later ally into the posterior breast at lump. No solid or cystic suspicious masses. Ne gative for malignancy. Left axilla is negative for suspicious lymph nodes. Rig ht breast is negative. I discussed findings with patient. He was satisfied. IMPRESSION: 1. Left gynecomastia corresponds with carine mp. 2. No mammographic or sonographic findin gs of malignancy. RECOMMENDATION: Individualized Recommend ation Recommend management be based on clinica l grounds. ASSESSMENT: BI-RADS: 2: Benign. Shayla Alford D.O. IMG BI PROCEDURES documented in this encounter Visit Diagnoses Diagnosis Cyst Breast Left documented in this encounter Additional Health Concerns Assessment Noted Time PHQ-9 Depression Total Score: 18 04/28/2018 11:27 AM C DT documented as of this encounter Care Teams Informatics Developer Relationship Specialty Start Date End Date Shayla Alford D.O. PCP - General Internal Medicine 05/22/[address] [phone] documented as of this encounter
--- OUTSIDE RECORDS SUMMARY | 2022-05-21 11:16 | XMS_ITS | Encounter Summary ---
:1945 Author Organization [facility] Address [address] [place] [address] Care Team Providers Name Role Phone Shayla Alford D.O. Primary Care Provider [phone] Encounter Details Date Type Department Care Team Description 10/25/2021 Ancillary Procedure Department of Urology Social History Tobacco Use Types Packs/Day Years [...] or relatives? How often do you attend mormonism or Never 2021 muslim services? Do you belong to any clubs or No 10/09/2021 organizations such as mormonism groups, unions, fraternal or athletic groups, or [...] place to sleep or slept in a snf (including now)? Education Answer Date Recorded What is the highest level of school Master's degree (e.g., M A, MS, 03/23/2019 you have completed or the highest Martin, MEd, MANAGER SPECIAL EVENTS, CAYDEN) degree you have received? Sex Assigned at Date Recorded Male 05/21/2018 2:34 PM CDT documented as of this encounter Plan of Treatment Not on filedocumented as of this encounter Procedures Procedure Name Priority Date/Time Associated Diagnosis Comme nts UROLOGY IMAGE EXAM Routine 10/25/2021 3:05 PM Res ults for this LATENT PRINT EXAMINER procedure are i n the results section. documented in this encounter Results BLADDER-Urology Image Exam (10/25/2021 3:05 PM LATENT PRINT EXAMINER) Specimen (Source) Anatomical Collection Method Collection Time Re ceived Time Location / / Volume Laterality 10/25/2021 3:03 PM LATENT PRINT EXAMINER Narrative [facility] - 10/25/2021 3:08 PM LATENT PRINT EXAMINER This order has been created and auto-finalized to support the import of images acquired without order. The clini romina documentation to support these images can be found on the encounter tracy t produced images. Provider Not In System IMG NON RAD IMAGING PROCEDUR ES Performing Organization Address City/State/ZIP Code Phon e Number [facility] NA documented in this encounter Visit Diagnoses Not on filedocumented in this encounter Additional Health Concerns Assessment Noted Time PHQ-9 Depression Total Score: 18 04/28/2018 11:27 AM C DT documented as of this encounter Care Teams Hvac Manager Relationship Specialty Start Date End Date Shayla Alford D.O. PCP - General Internal Medicine 05/22/[address], [place] [phone] documented as of this encounter
--- OUTSIDE RECORDS SUMMARY | 2022-05-21 11:16 | XMS_ITS | Encounter Summary ---
:1945 Author Organization [facility] Address [address] [place] [address] Care Team Providers Name Role Phone Shayla Alford D.O. Primary Care Provider [phone] Encounter Details Date Type Department Care Team Description 10/09/2021 Hospital Encounter Department of Prateek Ferrer Primary; Laboratory Medicine Melissa, Chronic Kidney Disease (CKD), Stage 3b Glomerular Filtration Rate (GFR) 30 To 44 (HCC) [facility] [address] [facility] [address] [place] [phone] Social History Tobacco Use Types Packs/Day Years [...] or relatives? How often do you attend latter day or Never 2021 episcopalian services? Do you belong to any clubs or No 10/09/2021 organizations such as latter day groups, unions, fraternal or athletic groups, or [...] have completed or the highest Martin, MEd, LEAD COATER, CAYDEN) degree you have received? Sex Assigned [...] a day. mcg/actuation Start at 1 puff twice inhalerIndications: daily x 4 weeks, then Asthma Extrinsic 2 puffs twice daily Moderate (HCC) if tolerated. cholecalciferol, vitamin Take 1,000 Units by 0 D3, 25 mcg (1,000 Unit) mouth daily. tablet clopidogreL (PLAVIX) 75 Take 1 tablet by 0 2015 mg tablet mouth daily. empagliflozin Take 1 tablet (25 mg 90 tablet 3 07/10/2021 (Jardiance) 25 mg total) by mouth every tabletIndications: morning before Diabetes Mellitus Type 2 breakfast. With Diabetic Neuropathy (HCC), Diabetes Mellitus Type 2 Hyperglycemia (HCC) escitalopram (LEXAPRO) Take 1 tablet (10 mg 30 tablet 11 10 mg tablet total) by mouth daily. flash glucose scanning 1 each 5 (five) times 1 each 0 reader (FREESTYLE SOFYA) a day. Use to scan misc Sofya sensor 5 times daily and as needed. E11.65 Lifetime use. flash glucose sensor 1 each every 14 6 kit 3 03/02/2021 (FREESTYLE SOFYA) kit (fourteen) days. Change sensor every 14 days E11.65 E11.40 Lifetime use glucose 4 gram chewable CHEW FOUR TABLETS BY 0 tablet MOUTH NEEDED FOR LOW BLOOD SUGAR indomethacin (INDOCIN) Take 25 mg by mouth 3 0 25 mg capsule (three) times a day with meals. insulin aspart U-100 Inject 11 Units under 0 01/28 (NovoLOG FlexPen) 100 the skin 3 (three) unit/mL (3 mL) injection times a day with meals. levothyroxine Take 1 tablet (100 90 tablet 3 01/30/2021 (SYNTHROID, LEVOTHROID) mcg total) by mouth 100 mcg tablet daily. metoprolol succinate Take 1 tablet (25 mg 90 tablet 3 06/1906/19/2022 (TOPROL-XL) 25 mg 24 hr total) by mouth tabletIndications: daily. Do not crush Hypertension Essential or chew. Primary PEN NEEDLE, DIABETIC Yani Fine 30 0 MISC disposable needles. For use with Insulin Pens, 4 times daily SYRINGE-NEEDLE,INSULIN,0 0 .5 ML (INSULIN SYRINGE MISC) traZODone (DESYREL) 100 Take 0.5 tablets (50 30 tablet 1 07/10/2022 mg tablet mg total) by mouth at bedtime as needed for sleep. traZODone (DESYREL) 50 Take 1 tablet by 0 021 mg tablet mouth at bedtime as needed. budesonide-formoteroL Inhale 2 puffs daily 0 10/10/201911/19/2021 (SYMBICORT) 160-4.5 as needed. mcg/actuation inhaler gemfibroziL (LOPID) 600 Take 1 tablet by 0 200811/06/2021 mg tablet mouth. insulin glargine (Lantus Inject 30 Units under 0 02/22/2021 11/29/2021 U-100 Insulin) 100 the skin at bedtime. unit/mL injectionIndications: Diabetes Mellitus Type 2 Hyperglycemia (HCC) [...] Name Priority Date/Time Associated Diagnosis Comme nts RENAL FUNCTION Routine 10/09/2021 11:08 Hypertension Results f or this PANEL, S AM DIGITAL MEASUREMENT ADVISOR Essential Primar y procedure are in Chronic Kidney the results Disease (CKD), Stage section . 3b Glomerular Filtration Rate (GFR) 30 To 44 (HCC) URIC ACID, S/P Routine 10/09/2021 11:08 Hypertension Results f or this AM DIGITAL MEASUREMENT ADVISOR Essential Primar y procedure are in Chronic Kidney the results Disease (CKD), Stage section . 3b Glomerular Filtration Rate (GFR) 30 To 44 (HCC) documented in this encounter Results Uric Acid (10/09/2021 11:08 AM DIGITAL MEASUREMENT ADVISOR) P athologist Signature Uric Acid, P 7.5 3.7 - 8.0 10/09/2021 [facility] mg/dL 4:28 PM DIGITAL MEASUREMENT ADVISOR Specimen Anatomical Collection Method Collection Time Receive d Time (Source) Location / / Volume Laterality Blood (Blood, 10/09/2021 11:08 10/09/2021 4:05 Venous) AM DIGITAL MEASUREMENT ADVISOR PM DIGITAL MEASUREMENT ADVISOR Melissa Blackmon LAB BLOOD ADD-ON Performing Organization Address City/State/ZIP Code Phon e Number [facility]- [address] [place] [address] [facility] [place] [address] [facility] [address] (ABNORMAL) Renal Function Panel (10/09/2021 11:08 AM DIGITAL MEASUREMENT ADVISOR) Analysis Performed At Patho logist Time Signature Potassium, P 4.6 3.6 - 5.2 10/09/2021 [facility] mmol/L 11:36 AM DIGITAL MEASUREMENT ADVISOR Sodium, P 133 (L) 135 - 145 10/09/2021 [place] mmol/L 11:36 AM DIGITAL MEASUREMENT ADVISOR Chloride, P 98 98 - 107 10/09/2021 [place] mmol/L 11:36 AM DIGITAL MEASUREMENT ADVISOR Bicarbonate, P 22 22 - 29 10/09/2021 [place] mmol/L 11:35 AM DIGITAL MEASUREMENT ADVISOR Anion Gap, P 13 7 - 15 10/09/2021 [place] 11:36 AM DIGITAL MEASUREMENT ADVISOR BUN (Blood Urea 38 (H) 8 - 24 10/09/2021 [facility] Nitrogen), P mg/dL 11:35 AM DIGITAL MEASUREMENT ADVISOR Creatinine 1.69 (H) 0.74 - 10/09/2021 [facility] 1.35 mg/dL 11:35 AM DIGITAL MEASUREMENT ADVISOR eGFR-Black/Afri 44 (L) >=60 10/09/2021 [facility] can Lao mL/min/BSA 11:35 AM DIGITAL MEASUREMENT ADVISOR Comment: ----ADDITIONAL INFORMATION---- Estimated GFR calculated using the 2009 CKD_EPI creatinine equation. eGFR Non-Black/ 38 (L) >=60 mL/min/BSA 10/09/2021 11:35 AM DIGITAL MEASUREMENT ADVISOR [facility] Lao Comment: ----ADDITIONAL INFORMATION---- Estimated GFR calculated using the 2009 CKD_EPI creatinine equation. Calcium, Total, P 8.9 8.8 - 10.2 mg/dL 10/09/2021 11:3 5 AM DIGITAL MEASUREMENT ADVISOR [facility] Glucose, P 440 (CH) 70 - 140 mg/dL 10/09/2021 12:34 PM DIGITAL MEASUREMENT ADVISOR [facility] Albumin, P 3.6 3.5 - 5.0 g/dL 10/09/2021 11:35 AM DIGITAL MEASUREMENT ADVISOR [facility] Phosphorus (Inorganic), P 4.4 2.5 - 4.5 mg/dL 10/09/19 4:28 PM DIGITAL MEASUREMENT ADVISOR [facility] Specimen Anatomical Collection Method Collection Time Receive d Time (Source) Location / / Volume Laterality Blood (Blood, 10/09/2021 11:08 10/09/2021 4:05 Venous) AM DIGITAL MEASUREMENT ADVISOR PM DIGITAL MEASUREMENT ADVISOR Narrative [facility] - 10/09/2021 4:28 PM DIGITAL MEASUREMENT ADVISOR Specimen Information: Specimen ID: [id number] Specimen Type: Blood Specimen Collection Start Date: 10/09/19 11:08 AM Specimen Received Date: 10/09/2021 ??4:0 5 PM Specimen ID: [id number] Specimen Type: Blood Specimen Collection Start Date: 10/09/19 11:08 AM Specimen Received Date: 10/09/2021 11:09 AM Melissa Blackmon LAB BLOOD ADD-ON Performing Organization Address City/State/ZIP Code Phon e Number [facility]- [address] [place], [place] [phone] [place] [address] [place] [address] System in [place] [address] [place] [place] [address] [facility] [address] documented in this encounter Visit Diagnoses Diagnosis Hypertension Essential Primary Chronic Kidney Disease (CKD), Stage 3b G lomerular Filtration Rate (GFR) 30 To 44 (HCC) documented in this encounter Additional Health Concerns Assessment Noted Time PHQ-9 Depression Total Score: 18 04/28/2018 11:27 AM C DT documented as of this encounter Care Teams Woods Rider Relationship Specialty Start Date End Date Shayla Alford D.O. PCP - General Internal Medicine 05/22/[address] [place] [phone] documented as of this encounter
--- OUTSIDE RECORDS SUMMARY | 2022-05-21 11:16 | XMS_ITS | Encounter Summary ---
:1945 Author Organization [facility] Address [address] [place] [address] Care Team Providers Name Role Phone Shayla Alford D.O. Primary Care Provider [phone] Reason for Referral Outpatient (Routine) - Closed Specialty Diagnoses / Procedures Referred By Contact Refer red To Contact Community Internal Diagnoses Preoperative Exam ARMAAN Alford [facility] Tulio Mcguire [address] [place] [phone] Referral ID Status Reason Start Date Expiration Date Visits Requ ested Visits Authorized [id number] Closed 09/13/2021 09/13/2022 1 1 RESSIVE ASSEMBLER AND FITTER Outpatient (Routine) - Closed Specialty Diagnoses / Procedures Referred By Contact Refer red To Contact Dermatology Diagnoses Lesion Skin Shayla Alford D.O. [facility] [address] [place] [phone] Referral ID Status Reason Start Date Expiration Date Visits V isits Requested Authorized [id number] Closed Specialty 09/13/2021 09/13/2022 1 1 Services Required RESSIVE ASSEMBLER AND FITTER Outpatient (Routine) - Closed Specialty Diagnoses / Procedures Referred By Contact Refer red To Contact Diagnoses Cyst Breast Left Shayla Alford [facility] [place] [facility] Procedures BI Ultrasound Breast Axilla Left [address]. [address], [place] [phone] Referral ID Status Reason Start Date Expiration Date Visits Requ ested Visits Authorized [id number] Closed 09/13/2021 09/13/2022 1 1 RESSIVE ASSEMBLER AND FITTER Reason for Visit Reason Comments Pre-op Exam Colonoscopy-DOS Unknown. Follow-up Diabetes, Bladder cancer, As thma Outpatient (Routine) - Closed Specialty Diagnoses / Procedures Referred By Contact Refer red To Contact [facility] Internal ARMAAN Alford [facility] Tulio Mcguire [address], [place] [address] Referral ID Status Reason Start Date Expiration Date Visits Requ ested Visits Authorized [id number] Closed 07/31/2021 07/31/2022 1 1 Encounter Details Date Type Department Care Team Description 09/13/2021 Office Visit Department of Internal Coleman Alford iaatilio Mellitus Type 2 With Diabetic Neuropathy (HCC) (Primary Dx); [place] Chronic Kidney Disease (CKD), Stage 3b G lomerular Filtration Rate (GFR) 30 To 44 (HCC); [place] [address] [place] [address] Hypothyroidism; [address] [place], [place] Cyst Breast Left; [place] [address] Lesion Skin; [id number] Preoperative Exam Social History Tobacco Use Types Packs/Day Years [...] or relatives? How often do you attend religion or Never 2021 moravian services? Do you belong to any clubs or No 10/09/2021 organizations such as religion groups, unions, fraPica8 or athletic groups, or school groups? How [...] place to sleep or slept in a long-term (including now)? Education Answer Date Recorded What is the highest level of school Master's degree (e.g., M [place], [place], 03/23/2019 you have completed or the highest Martin, MEd, CORRECTIONAL CASE MANAGER, CAYDEN) degree you have received? Sex Assigned at Date Recorded Male 05/21/2018 2:34 PM CDT documented as of this encounter Last Filed Vital Signs Vital Sign Reading Time Taken Comments Blood Pressure 120/62 09/13/2021 10:59 AM PROGRESSIVE ASSEMBLER AND FITTER Pulse 60 09/13/2021 10:59 AM PROGRESSIVE ASSEMBLER AND FITTER Temperature 36.3 ??C (97.4 ??F) 09/13/2021 10:59 AM PROGRESSIVE ASSEMBLER AND FITTER Respiratory Rate - - Oxygen Saturation - - Inhaled Oxygen Concentration - - Weight 99.9 kg (220 lb 3.8 oz) 09/13/2021 10:59 AM PROGRESSIVE ASSEMBLER AND FITTER Height 190.5 cm (6' 3) 09/13/2021 10:59 AM PROGRESSIVE ASSEMBLER AND FITTER Body Mass Index 27.53 09/13/2021 10:59 AM PROGRESSIVE ASSEMBLER AND FITTER documented in this encounter H&P Notes Shayla Alford D.O. - 09/13/2021 11:00 AM CST SUBJECTIVE CHIEF COMPLAINT / REASON FOR VISIT Jonnathan Costa is a 76 y.o. male who presents for evaluation of Pre-op Exam (Colonoscopy-DOS Unknown. ) and Follow-up (Diabetes, Bladder cancer, Asthma). 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 The patient, is due for his colonoscopy screening. He would like to wait until his chemotherapy is completed. He does have 1 more treatment and hopefully will be done by the end of September. Unfortunately due to access issues he might need to wait for his colonoscopy until September or October. But, we did perform a preop today if the patient is able to get his colonoscopy scheduled within 30 days. He denies any melena, no hematochezia, no active GI symptoms. In regards to his papillary transitional cell carcinoma, he underwent initial resection in May 22, 2016. The original tumor was on the right lateral wall. His recurrence was found on cystoscopy December 31, 2020. With resection completed June 2021. Overall he has been tolerating the treatment with no significant concerns with the exception of increased fatigue. He is followed locally in [facility] urology clinic. He does have a repeat urine cytology scheduled for 3 months from his last urology visit July 23 In regards to a type 2 diabetes, the patient had a recent gout attack. He was therefore placed on prednisone which has caused his glucose numbers to be in the 200 range. Now that, his gout has resolvedand he is no longer on prednisone, he has noticed that his glucose is starting to drop specially hismorning readings. He does not have his glucometer with him today. [place] and [place] the [employer] monitoring system. He has done well on Jardiance 25 mg every morning before breakfast. He uses 34 units of Lantus at bedtime and 10-30 units subQ t.i.d. of his NovoLog per sliding scale. He will have another A1c before seeing us in the clinic next In regards to his systolic congestive heart failure, last echocardiogram 11/17/2020 shows mild to moderate left ventricular chamber with an EF of 50%. He does have severely calcified mitral annulus. Moderate to moderate mitral valve regurg. On his diuretic with torsemide 40 mg every morning before breakfast. His blood pressure stable 120/62 on metoprolol 25 mg daily. He shows no sign of volume overload no shortness of breath palpitations or chest pain on exam today. The following portions of the patient's history were reviewed and updated as appropriate: allergies,current medications, family history, medical history, social history, surgical history and problem list. REVIEW OF SYSTEMS A ten point ROS is otherwise negative OBJECTIVE BP 120/62 (BP Location: Right arm, Patient Position: Sitting, Cuff Size: Regular) Pulse 60 Temp 36.3 ??C (Temporal) Ht 190.5 cm Wt 99.9 kg BMI 27.53 kg/m?? PHYSICAL EXAM General: Patient alert and oriented, appearing in no acute distress. Well groomed and dressed appropriately. Head: Normocephalic, atraumatic. Eyes: Sclerae clear without injection. Conjunctivae without drainage, erythema or matting. Ears/Nose/Throat: External ear canals patent. TMs pearly pena bilaterally. Neck: Supple without lymphadenopathy. Trachea midline. Respiratory: Clear to auscultation bilaterally posteriorly without rhonchi, wheezes, or crackles. Nocough on exam today. Respirations are easy and unlabored. Cardiac: S1 and S2 present with regular rate and rhythm. No murmurs or S3, S4 auscultated. No carotid bruits Musculoskeletal: Gait normal. Normal movement of all extremities. No upper or lower extremity edema. Breast : small movable cystic lesion on the left breast without any nipple discharge or redness . Neurologic: Alert and Oriented x3. Responds appropriately to questions. Follows commands without difficulty. Pupils equal and reactive to light. Cranial nerves II through XII grossly intact. EOMs intact. No unilateral or focal weakness, no involuntary movements. Adequate coordination. Skin:The patient has 0.5 x 0.6 cm lesion noted by his right ear suspicious for possible basal cell. Derm referral placed for biopsy ASSESSMENT / PLAN #1 Diabetes Mellitus Type 2 With Diabetic Neuropathy (HCC) In regards to a type 2 diabetes, the patient had a recent gout attack. He was therefore placed on prednisone which has caused his glucose numbers to be in the 200 range. Now that, his gout has resolvedand he is no longer on prednisone, he has noticed that his glucose is starting to drop specially hismorning readings. He does not have his glucometer with him today. [facility] and [facility] the [employer] monitoring system. He has done well on Jardiance 25 mg every morning before breakfast. He uses 34 units of Lantus at bedtime and 10-30 units subQ t.i.d. of his NovoLog per sliding scale. He will have another A1c before seeing us in the clinic next #2 Chronic Kidney Disease (CKD), Stage 3b Glomerular Filtration Rate (GFR) 30 To 44 (HCC) Continue avoidance of nephrotoxins and renally dosing medication. Encouraged increasing hydration . He is volume stable today with no sign of volume overload or decompensation . #3 Hypothyroidism Continue levothyroxine 100 mcg daily. #4 Cyst Breast Left The patient, has some tenderness and his left breast under his nipple. Small cystic lesion was felt on palpation. I recommend evaluate with ultrasound. The patient would like to finish chemotherapy 1sthe has been feeling overwhelmed with the amount of appointments that he has had recently. We discussed prioritizing his appointments and the he will schedule his chemo 1st and then his colonoscopy followed shortly by his breast ultrasound. He has not had any nipple discharge, and has not been on medications that would cause breast tissue inflammation or swelling. No history of breast malignancy personally or in the family - BI Ultrasound Breast Axilla Left; Future; Expected date: 09/13/2021 #5 Lesion Skin The patient has 0.5 x 0.6 cm lesion noted by his right ear suspicious for possible basal cell. Derm referral placed for biopsy - Dermatology - General consult (clinic); Future; Expected date: 09/13/2021 #6 Preoperative Exam The patient is optimized from a cardiovascular standpoint to undergo a screening colonoscopy . The patient will take half his lantus the night before the procedure and will hold his AM Novolog . He will continue with his Jardiance. - [facility] Internal Medicine office visit (clinic); Future; Expected date: 10/14/2021 - [facility] Internal Medicine office visit (clinic); Future; Expected date: 10/14/2021 Other orders - [facility] Internal Medicine office visit (clinic) Symptoms: if symptoms are getting worse or patient develops fever/chills or new symptoms: advise patient to come back and see a provider immediately. PATIENT EDUCATION Patient Education: Ready to learn, no apparent learning barriers were identified; learning preferences include listening. Explained diagnosis and treatment plan; patient expressed understanding of the content. Electronically signed by: Shayla Alford D.O. 10/05/21 2:47 PM PROGRESSIVE ASSEMBLER AND FITTER Time spent 32 minutes RESSIVE ASSEMBLER AND FITTER documented in this encounter Plan of Treatment Scheduled Referrals Name Type Priority Associated Diagnoses Order S chedule Dermatology - Outpatient Referral Routine Lesion Skin Expecte d: General consult 09/13/2021 (clinic) (Approximate), Expires: 12/12/2022 Community Internal Outpatient Referral Routine Preoperative Ex am Expected: Medicine office 10/14/2021 visit (clinic) (Approximate) , Expires: 12/12/2022 documented as of this encounter Results BI Ultrasound Breast Axilla Left (10/09/2021 10:54 AM PROGRESSIVE ASSEMBLER AND FITTER) Anatomical Region Laterality Modality Breast, Breast Imaging RST LOS, Breast Imaging F[facility] Left Ultrasound Specimen (Source) Anatomical Collection Method Collection Time Re ceived Time Location / / Volume Laterality 10/09/2021 10:38 AM PROGRESSIVE ASSEMBLER AND FITTER Impressions 10/09/2021 10:41 AM PROGRESSIVE ASSEMBLER AND FITTER 1. ??Left gynecomastia corresponds with lump. 2. ??No mammographic or sonographic find ings of malignancy. RECOMMENDATION: ??Individualized Recomme ndation Recommend management be based on clinica l grounds. ASSESSMENT: ??BI-RADS: 2: Benign. Narrative 10/09/2021 10:41 AM PROGRESSIVE ASSEMBLER AND FITTER EXAM: ??BI BREAST DIAGNOSTIC BILATERAL WITH TOMOSYNTHESIS, [...] documented in this encounter Visit Diagnoses Diagnosis 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) - Primary Chronic Kidney Disease (CKD), Stage 3b G lomerular Filtration Rate (GFR) 30 To 44 (HCC) Hypothyroidism Cyst Breast Left Lesion Skin Preoperative Exam Cyst Breast Left documented in this encounter Additional Health Concerns Assessment Noted Time PHQ-9 Depression Total Score: 18 04/28/2018 11:27 AM C DT documented as of this encounter Care Teams Boiler Tester Relationship Specialty Start Date End Date Shayla Alford D.O. PCP - General Internal Medicine 05/22/20 [address] [place] [phone] documented as of this encounter
--- OUTSIDE RECORDS SUMMARY | 2022-05-21 11:16 | XMS_ITS | Encounter Summary ---
:1945 Author Organization [facility] Address [address] [place] [address] Care Team Providers Name Role Phone Shayla Alford D.O. Primary Care Provider [phone] Reason for Visit Reason Comments Nurse Visit Bladder Cancer Appointment Request (Routine) - Closed Specialty Diagnoses / Procedures Referred By Contact Refer red To Contact Urology Referral ID Status Reason Start Date Expiration Date Visits Requ ested Visits Authorized [id number] Closed 07/23/2021 07/23/2022 1 1 Encounter Details Date Type Department Care Team Description 09/12/2021 Nurse Only Department of Urology Lea Morin Nu rse Visit; Bladder in Alicia Dixon suman R.N. Cancer [address] [place] [address] [place], [place] [phone] Social History Tobacco Use Types Packs/Day Years [...] or relatives? How often do you attend orthodox or Never 2021 zoroastrian services? Do you belong to any clubs or No 10/09/2021 organizations such as orthodox groups, unions, fraternal or athletic groups, or [...] have completed or the highest Martin, MEd, WEDDING CAKE DESIGNER, CAYDEN) degree you have received? Sex Assigned at Date Recorded Male 05/21/2018 2:34 PM CDT documented as of this encounter Last Filed Vital Signs Vital Sign Reading Time Taken Comments Blood Pressure - - Pulse - - Temperature 36.4 ??C (97.6 ??F) 09/12/2021 9:21 AM BAND SHOVER Respiratory Rate - - Oxygen Saturation - - Inhaled Oxygen Concentration - - Weight - - Height - - Body Mass Index - - documented in this encounter Progress Notes Lea Morin, R.N. - 09/12/2021 9:00 AM CST Bladder Instillation 1. This is number 5 of 6. 2. Prior to the procedure the following was reviewed: Urinalysis and Urine Culture 3. The patient was prepped iin sterile fashion using betadine. 4. Catheter size: 14F 5. Catheter type: Straight 6. Medication administered (see MAR for specific details): BCG 7. Medication instilled via closed system. 8. Catheter removed intact. 9. Patient tolerated procedure well. 10. The patient was provided with the following:Dwell time and Post procedure instructions 11. Next treatment/follow up scheduled for: 09/19/21 Jonnathan Costa here for BCG. no new problems from last visit, tolerating treatment with no problems and continue as planned . Patient denies hematuria, urinary urgency, urinary frequency, cough,fever or chills . Urinalysis reviewed. Patient prepped in sterile fashion. 14F catheter placed usingsterile technique without difficulties. No blood noted upon catheter placement. . Urojet was not used. BCG instilled per providers order (see MAR for medication information). Catheter removed fully intact without difficulties. Patient tolerated well. Post BCG treatment cares/instructions reviewed. Patient will return as scheduled for the next BCG treatment. Lea Morin R.N. 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 HAZARDOUS - Handle with care. Use with CSTD Bladder Instillation Kit. documented in this encounter Additional Health Concerns Assessment Noted Time PHQ-9 Depression Total Score: 18 04/28/2018 11:27 AM C DT documented as of this encounter Care Teams Industrial Automation Engineer Relationship Specialty Start Date End Date Shayla Alford D.O. PCP - General Internal Medicine 05/22/20 [address] [place] [phone] documented as of this encounter
--- OUTSIDE RECORDS SUMMARY | 2022-05-21 11:16 | XMS_ITS | Encounter Summary ---
:1945 Author Organization [facility] Address [address] [place] [address] Care Team Providers Name Role Phone Shayla Alford D.O. Primary Care Provider [phone] Reason for Referral Outpatient (Routine) - Closed Specialty Diagnoses / Procedures Referred By Contact Refer red To Contact Diagnoses Cyst Breast Left Shayla Alford [facility] Region Procedures BI Breast Diagnostic Bilateral with Tomosynthesis D.O. [address] [place] [phone] Referral ID Status Reason Start Date Expiration Date Visits Requ ested Visits Authorized [id number] Closed 09/14/2021 09/14/2022 1 1 S TUBE BENDER Reason for Visit Outpatient (Routine) - Closed Specialty Diagnoses / Procedures Referred By Contact Refer red To Contact Diagnoses Cyst Breast Left Shayla Alford [facility] Region Procedures BI Breast Diagnostic Bilateral with Tomosynthesis D.O. [address], [place] [phone] Referral ID Status Reason Start Date Expiration Date Visits Requ ested Visits Authorized [id number] Closed 09/14/2021 09/14/2022 1 1 Encounter Details Date Type Department Care Team Description 10/09/2021 Hospital Encounter Department of [place], Cyst Breast Left Radiology [place] [address] [place] [phone] Social History Tobacco Use Types Packs/Day [...] do you attend episcopalian or Never 2021 yarsani services? Do you belong to any clubs [...] have completed or the highest Martin, MEd, SPA THERAPIST, CAYDEN) degree you have received? Sex Assigned [...] (FREESTYLE SOFYA) a day. Use [place] [facility] [place] 5 times daily and as [...] aspart U-100 Inject 11 Units under 0 /03/2021 (NovoLOG FlexPen) 100 the skin 3 (three) [...] needed. budesonide-formoteroL Inhale 2 puffs daily 0 10/201911/19/2021 (SYMBICORT) 160-4.5 as needed. mcg/actuation inhaler gemfibroziL [...] mg tablet documented as of this encounter Miscellaneous Notes Result Encounter Note - Shayla Alford D.O. - 10/09/2021 11:05 AM GLASS TUBE BENDER Good news, there is no cancer of the breast. There is some enlargement in the breast tissue which islikely related to medications. If it does not improve, we can do further testing. This will mean more blood work. Electronically signed by: Shayla Alford D.O. 10/09/21 11:05 AM GLASS TUBE BENDER S TUBE BENDER documented in this encounter Plan of Treatment Not on filedocumented as of this encounter Procedures Procedure Name Priority Date/Time Associated Comments Diagnosis BI BREAST DIAGNOSTIC RAD - Routine 10/09/2021 10:08 Cyst Breast Lef t Results for BILATERAL WITH (most inpatients AM GLASS TUBE BENDER this proc edure TOMOSYNTHESIS and all are in the outpatients) results section. documented in this encounter Results BI Breast Diagnostic Bilateral with Tomosynthesis (10/09/2021 10:08 AM GLASS TUBE BENDER) Anatomical Region Laterality Modality Breast, Breast Imaging RST LOS, Breast Imaging ARZ LOS, [place] st Bilateral Mammography Imaging FLA LOS Specimen (Source) Anatomical Collection Method Collection Time Re ceived Time Location / / Volume Laterality 10/09/2021 10:38 AM GLASS TUBE BENDER Impressions 10/09/2021 10:41 AM GLASS TUBE BENDER 1. ??Left gynecomastia corresponds with lump. 2. ??No mammographic or sonographic find ings of malignancy. RECOMMENDATION: ??Individualized Recomme ndation Recommend management be based on clinica l grounds. ASSESSMENT: ??BI-RADS: 2: Benign. Narrative 10/09/2021 10:41 AM GLASS TUBE BENDER EXAM: ??BI BREAST DIAGNOSTIC BILATERAL WITH TOMOSYNTHESIS, [...] IMPRESSION: 1. Left gynecomastia corresponds with carine ivey. 2. No mammographic or sonographic findin gs [...] documented as of this encounter Care Teams Systems Analyst Engineer Relationship Specialty Start Date End Date Shayla Alford D.O. PCP - General Internal Medicine 05/22/20 [address], [place] [phone] documented as of this encounter
--- OUTSIDE RECORDS SUMMARY | 2022-05-21 11:16 | XMS_ITS | Encounter Summary ---
:1945 Author Organization [facility] Address [address] [place] [address] Care Team Providers Name Role Phone Shayla Alford D.O. Primary Care Provider [phone] Reason for Referral Outpatient (Routine) - Closed Specialty Diagnoses / Procedures Referred By Contact Refer red To Contact Urology Prasanna Bernal M.D. 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 [facility] [address] [place] [phone] Referral ID Status Reason Start Date Expiration Date Visits Requ ested Visits Authorized [id number] Closed 10/25/2021 10/25/2022 1 1 ESTATE AGENCY LICENSEE Reason for Visit Reason Comments Cystoscopy Post bcg Outpatient (Routine) - Closed Specialty Diagnoses / Procedures Referred By Contact Refer red To Contact Diagnoses Malignant Neoplasm Of Bladder Lateral Wall (HCC) Prasanna Bernal M.D. [facility] Region Procedures Cystoscopy (specific provider) [address] [place] [phone] Referral ID Status Reason Start Date Expiration Date Visits Requ ested Visits Authorized [id number] Closed 07/23/2021 07/23/2022 1 1 Encounter Details Date Type Department Care Team Description 10/25/2021 Office Visit Department of Urology Prasanna Bernal Mal ignant Neoplasm Of in Moise Dixon M.D. Bladder Posterior Wall [address] (HCC) [place] [phone] Social History Tobacco Use Types Packs/Day Years Used Date Smoking Tobacco: Former Cigarettes 06/29 - 1979 Pipe Smokeless Tobacco: Never [...] or relatives? How often do you attend presybeterian or Never 2021 moravian services? Do you belong to any clubs or No 10/09/2021 organizations such as presybeterian groups, unions, fraternal or athletic groups, or [...] highest level of school Master's degree (e.g., Neto Arias MS, 03/23/2019 you have completed or the highest Martin, MEd, MARKETING SUPPORT SPECIALIST, CAYDEN) degree you have received? Sex Assigned at Date Recorded Male 05/21/2018 2:34 PM CDT documented as of this encounter Last Filed Vital Signs Vital Sign Reading Time Taken Comments Blood Pressure - - Pulse 53 10/25/2021 2:34 PM REAL ESTATE AGENCY LICENSEE Temperature 35.9 ??C (96.6 ??F) 10/25/2021 2:34 PM REAL ESTATE AGENCY LICENSEE Respiratory Rate - - Oxygen Saturation 98% 10/25/2021 2:34 PM REAL ESTATE AGENCY LICENSEE Inhaled Oxygen Concentration - - Weight - - Height - - Body Mass Index - - documented in this encounter Progress Notes Prasanna Bernal M.D. - 10/25/2021 2:30 PM CST CHIEF COMPLAINT / REASON FOR VISIT ?? CYSTOSCOPY REPORT ? INDICATION Bladder cancer. ?? Original resection: ??May 22, 2016, tumor on right lateral wall Original pathology: ??Papillary transitional cell carcinoma, grade 1, stage TA Recurrence: Resected July 18, 2021, posterior wall, high-grade noninvasive papillary urothelial carcinoma. Other: ??GreenLight PVP, August 28, 2016 Intravesical therapy: ??BCG induction therapy, completed between July 2021 and September 2021 Last upper tract studies: ??July 10, 2021 Last cystoscopy:?July 18, 2021 ?? Urine cytology collected on??October 18, 2021 is negative, Urovysion??? fluorescence in situ hybridization (FISH or FUROC) of the same date is positive.? The patient is experiencing increased frequency, urgency and episodes of urge incontinence. ?? INSTRUMENT Flexible cystoscope. ?? ANESTHESIA 2% aqueous lidocaine jelly introduced into the urethra. ?? PROCEDURE During this procedure the universal protocol was utilized. ??The patient's identity was confirmed byno less than two patient identifiers, correct procedure was verified, correct site was verified and marked as applicable and a final pause was completed. ?? The patient was placed in a supine position. ??The genitalia were prepped and draped sterilely. The urethra was anesthetized with 2% aqueous lidocaine jelly. ??The cystoscope was advanced into the urethra. ?? FINDINGS Meatus: ??Normal. Urethra: ??No strictures noted. ??Bulbous urethra and membranous urethra are normal. Prostate: ??Length: 4 cm. Lateral lobes: ??Well resected with moderate??non-obstructing??apical tissue present. ? Middle lobe: ??Absent. Bladder neck: ??Unremarkable. Bladder: ??Residual urine: Minimal. Ureteral orifices: Singular bilaterally, normal position on the trigone, slit- like in configuration and with clear efflux of urine noted bilaterally. Trabeculation: Mild. Tumors and Foreign bodies: On the posterior wall there is a recurrence that measures approximately 3x 4 cm. Neither ureteral orifice is involved. The trigone is not involved. This is a large patch, visually suspicious of low-grade papillary transitional cell carcinoma. ? COMMENTS The procedure was well tolerated by the patient. ??He was discharged from the office in satisfactorycondition. Post-cystoscopy instructions were reviewed with him. ?? IMPRESSION / REPORT / PLAN 1. History of bladder cancer, now with recurrent disease located on the posterior wall 2. Benign prostatic hypertrophy, improved following GreenLight photoselective vaporization of the prostate. ? 3. Irritative voiding symptoms including urge incontinence. This may be related to the recurrence ofhis bladder cancer.?Poorly controlled diabetes is likely contributing factor. ? PLAN: We will make arrangements to return to the operating room for transurethral resection. Were tentatively planning to do this on October,. He will need preoperative clearance including a urine culture and COVID screen. If this indeed is recurrence, I would anticipate a second induction course of BCG. If it comes back quickly, once again, we would like lead need to switch to gemcitabine or mitomycin. I do not anticipate using mitomycin at the time of surgery, as this is high-grade. Electronically signed by: Prasanna Bernal M.D. 10/25/21 4:02 PM REAL ESTATE AGENCY LICENSEE Answers for HPI/ROS submitted by the patient on 10/09/2021 No general issues: Yes No eye issues: Yes No ENT issues: Yes No heart issues: Yes No respiratory issues: Yes Diarrhea: Yes No muscle/bone issues: Yes No skin issues: Yes Loss of balance or tendency to fall easily: Yes No mental health issues: Yes Bruises/bleeds easily: Yes Frequent urination: Yes Incontinence (urine leakage): Yes ESTATE AGENCY LICENSEE documented in this encounter Plan of Treatment Scheduled Referrals Name Type Priority Associated Diagnoses [facility] Outpatient Referral Routine Malignant Neopl asm Expected: consult (clinic) Of Bladder Posterior Wall (HCC) (Approximate), Expires: 01/23/2023 Urology office Outpatient Referral Routine Expect ed: visit (clinic) 11/19/2021 (Approximate), Expires: 01/23/2023 documented as of this encounter Results SARS Coronavirus-2 RNA, V Asymptomatic (11/11/2021 8:06 AM REAL ESTATE AGENCY LICENSEE) [facility] Method Time Signature SARS-CoV-2 Swab, 11/11/2021 MKTO Specimen Nasopharynx 11:29 PM Source REAL ESTATE AGENCY LICENSEE SARS CoV-2 Undetected Undetected 11/11/2021 MKTO RNA, TMA 11:29 PM REAL ESTATE AGENCY LICENSEE Comment: SARS-CoV-2 RNA absent. This result does not rule out COVID-19 in the patient, as the sensitivity of the test depends o n the timing of the specimen collection and the quality of the specim en. Result should be correlated with patient's history and clinical presentat ion. ----ADDITIONAL INFORMATION---- This molecular amplification test was pe rformed using the Aptima SARS-CoV-2 assay ([employer] on the [employer] tem under emergency use authorization (EUA) by the U.S. Food and Drug Administ ration. Fact sheets for this EUA assay can be fo und at the following links: For Healthcare Providers: https://www.Beestar a.gov/media/860049/download For Patients: https://www.fda.gov/media/ 135681/download Specimen Anatomical Collection Method Collection Time Receive d Time (Source) Location / / Volume Laterality Varies 11/11/2021 8:06 AM 2 4:32 (Nasopharynx) REAL ESTATE AGENCY LICENSEE PM REAL ESTATE AGENCY LICENSEE Prasanna Bernal M.D. LAB MICROBIOLOGY - GENERAL Jason PORTER Performing Organization Address City/[facility] Phon e Number [address] [address] [place] [address] (ABNORMAL) Bacterial Culture, Aerobic + Susc, Urine (11/07/2021 8:30 AM REAL ESTATE AGENCY LICENSEE) Analysis Performed At [facility] Time Signature Urine Culture Mixed 11/08/2021 [facility] surekha. (A) 10:55 AM REAL ESTATE AGENCY LICENSEE Specimen Anatomical Collection Method Collection Time Receive d Time (Source) Location / / Volume Laterality Urine (Urine, 11/07/2021 8:30 AM 11/07/19 22 2:14 Midstream) REAL ESTATE AGENCY LICENSEE PM REAL ESTATE AGENCY LICENSEE Comment: Specimen Source Site: Urine Mid stream Prasanna Bernal M.D. 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 PCP - General Internal Medicine 05/[address] [place] [phone] documented as of this encounter
--- OUTSIDE RECORDS SUMMARY | 2022-05-21 11:16 | XMS_ITS | Encounter Summary ---
:1945 Author Organization [facility] Address [address] [place] [address] Care Team Providers Name Role Phone Shayla Alford D.O. Primary Care Provider [phone] Reason for Visit Appointment Request (Routine) - Closed Specialty Diagnoses / Procedures Referred By Contact Refer red To Contact Urology Referral ID Status Reason Start Date Expiration Date Visits Requ ested Visits Authorized [id number] Closed 07/23/2021 07/23/2022 1 1 Encounter Details Date Type Department Care Team Description 09/05/2021 Nurse Only Department of Urology in [facility] [place], [place] [address] [place] [phone] Social History Tobacco Use Types Packs/Day Years [...] or relatives? How often do you attend yazidi or Never 2021 baptist services? Do you belong to any clubs or No 10/09/2021 organizations such as yazidi groups, unions, fraternal or athletic groups, or [...] level of school Master's degree (e.g., Neto Arias, MS, 03/23/2019 you have completed or the highest Martin, MEd, AMBULANCE ATTENDANT, CAYDEN) degree you have received? Sex Assigned at Date Recorded Male 05/21/2018 2:34 PM CDT documented as of this encounter Last Filed Vital Signs Vital Sign Reading Time Taken Comments Blood Pressure - - Pulse - - Temperature 36.6 ??C (97.8 ??F) 09/05/2021 9:53 AM UNDERCUTTER OPERATOR Respiratory Rate 18 09/05/2021 9:53 AM UNDERCUTTER OPERATOR Oxygen Saturation - - Inhaled Oxygen Concentration - - Weight - - Height - - Body Mass Index - - documented in this encounter Progress Notes Lea Morin, R.N. - 09/05/2021 9:30 AM CST Bladder Instillation 1. This is number 4 of 6. 2. Prior to the procedure [...] instructions 11. Next treatment/follow up scheduled for: 09/12/21 Jonnathan Costa here for BCG. no new problems from last visit, tolerating treatment with no problems and continue as planned . Patient denies hematuria, urinary urgency, urinary frequency, cough,fever or chills . Urinalysis reviewed. Patient prepped in sterile fashion. 14F catheter placed usingsterile technique. BCG instilled per providers order (see MAR for medication information). Catheter removed fully intact without difficulties. Patient tolerated well. Post BCG treatment cares/instructions reviewed. Patient will return as scheduled for the next BCG treatment. Lea Morin R.N. 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 HAZARDOUS - Handle with care. Use with CSTD Bladder Instillation Kit. documented in this encounter Additional Health Concerns Assessment Noted Time PHQ-9 Depression Total Score: 18 04/28/2018 11:27 AM C DT documented as of this encounter Care Teams Product Consultant Relationship Specialty Start Date End Date Shayla Alford D.O. PCP - General Internal Medicine 05/22/20 [address] [place] [phone] documented as of this encounter
--- OUTSIDE RECORDS SUMMARY | 2022-05-21 11:16 | XMS_ITS | Encounter Summary ---
:1945 Author Organization [facility] Address [address] [place] [address] Care Team Providers Name Role Phone Shayla Alford D.O. 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 FAROOQ, R.N. [address] [place] [address] Referral ID Status Reason Start Date Expiration Date Visits V isits Requested Authorized [id number] Authorized 09/11/2021 09/11/2022 1 1 THERAPIST Encounter Details Date Type Department Care Team Description 09/11/2021 Orders Only Department of Urology Grace Rehman, Diabetes Mellitus Type 2 With Diabetic Neuropathy (HCC) (Primary Dx); in FAROOQ Dixon, R.NMauro Diabetes Mellitus Type 2 With Diabetic C hronic Kidney Disease (HCC) [place] [address] [place] [phone] Social History Tobacco Use Types Packs/Day Years [...] or relatives? How often do you attend oriental orthodox or Never 2021 sabianism services? Do you belong to any clubs or No 10/09/2021 organizations such as oriental orthodox groups, unions, fraternal or athletic groups, [...] have completed or the highest Martin, MEd, JEWELRY CONSULTANT, CAYDEN) degree you have received? Sex Assigned at Date Recorded Male 05/21/2018 2:34 PM CDT documented as of this encounter Plan of Treatment Scheduled Referrals Name Type Priority Associated Order Schedule Diagnoses Endocrinology - Outpatient Referral Routine Diabetes Mellitus Expected: Diabetes consult Type 2 With 09/11/2021 (clinic) Diabetic Neuropathy (Approxi mate), (HCC) Expires: Diabetes Mellitus 12/10/2022 Type 2 With Diabetic Chronic Kidney Disease (HCC) documented as of this encounter Visit Diagnoses Diagnosis 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) - Primary Diabetes Mellitus Type 2 With Diabetic C hronic Kidney Disease (HCC) documented in this encounter Additional Health Concerns Assessment Noted Time PHQ-9 Depression Total Score: 18 04/28/2018 11:27 AM C DT documented as of this encounter Care Teams Merchandise Processor Relationship Specialty Start Date End Date Shayla Alford D.O. PCP - General Internal Medicine 05/22/[address] [phone] documented as of this encounter
--- OUTSIDE RECORDS SUMMARY | 2022-05-21 11:16 | XMS_ITS | Encounter Summary ---
:[address] [facility] Address [address] [place] [address] Care Team Providers Name Role Phone Shayla Alford D.O. 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 How often do you attend worship or Never 2021 evangelical services? Do you belong to any clubs or No 10/09/2021 organizations such as worship groups, unions, fraternal or athletic groups, or [...] have completed or the highest Martin, MEd, SUPERINTENDENT COMMUNICATIONS, CAYDEN) degree you have received? Sex Assigned [...] (FREESTYLE SOFYA) times a day. Use to [facility] scan Sofya sensor 5 times daily and [...] PEN NEEDLE, DIABETIC Yani Fine 30 0 [facility] disposable needles. For use with Insulin Pens, 4 times daily SYRINGE-NEEDLE,INSULIN,0 0 .5 ML (INSULIN SYRINGE [facility]) torsemide (DEMADEX) 20 Take 1 tablet (20 [...] Hyperglycemia (HCC) documented as of this encounter Miscellaneous Notes Result Encounter Note - Shayla Alford D.O. - 11/07/2021 11:24 AM PROTECTIVE SERVICES CASE WORKER Please, call patient following information. Good news, [...] [facility] once the Trulicity has started, they will likely start decreasing his insulindose to avoid hypoglycemia episodes. I placed a referral for him to also work with our pharmacist jian who does excellent job at titrating medications especially diabetic medications Electronically signed by: Shayla Alford D.O. 11/07/21 11:23 AM PROTECTIVE SERVICES CASE WORKER ECTIVE SERVICES CASE WORKER documented in this encounter Plan of Treatment Not on filedocumented as of this encounter Procedures Procedure Name Priority Date/Time Associated Diagnosis Comme nts CBC WITH Routine 11/07/2021 8:32 AM Preoperative Exam Resu lts for this DIFFERENTIAL, B PROTECTIVE SERVICES CASE WORKER procedure ar e in the results section. HEMOGLOBIN A1C, B Routine 11/07/2021 8:32 AM Diabetes Mellitus Results for this PROTECTIVE SERVICES CASE WORKER Type 2 With Diabetic procedu re are in Chronic Kidney the results Disease (HCC) section. BASIC METABOLIC Routine 11/07/2021 8:32 AM Preoperative Exam R esults for this PANEL, S/P PROTECTIVE SERVICES CASE WORKER procedure are i n the results section. documented in this encounter Results (ABNORMAL) CBC with Differential, Blood (11/07/2021 8:32 AM PROTECTIVE SERVICES CASE WORKER) [facility] Method Time Signature Hemoglobin 11.8 (L) 13.2 - 11/07/2021 [place] 16.6 g/dL 8:39 AM PROTECTIVE SERVICES CASE WORKER Hematocrit 34.6 (L) 38.3 - 11/07/2021 [place] 48.6 % 8:39 AM PROTECTIVE SERVICES CASE WORKER Erythrocytes 3.86 (L) 4.35 - 11/07/2021 [place] 5.65 8:39 AM PROTECTIVE SERVICES CASE WORKER x10(12)/L MCV 89.6 78.2 - 11/07/2021 [place] 97.9 fL 8:39 AM PROTECTIVE SERVICES CASE WORKER RBC Distrib Width 13.8 11.8 - 11/07/2021 [place] 14.5 % 8:39 AM PROTECTIVE SERVICES CASE WORKER Platelet Count 187 135 - 317 11/07/2021 [place] x10(9)/L 8:39 AM PROTECTIVE SERVICES CASE WORKER Leukocytes 6.5 3.4 - 9.6 11/07/2021 [place] x10(9)/L 8:39 AM PROTECTIVE SERVICES CASE WORKER Neutrophils 4.26 1.56 - 11/07/2021 [place] 6.45 8:39 AM PROTECTIVE SERVICES CASE WORKER x10(9)/L Lymphocytes 1.11 0.95 - 11/07/2021 [place] 3.07 8:39 AM PROTECTIVE SERVICES CASE WORKER x10(9)/L Monocytes 0.53 0.26 - 11/07/2021 [place] 0.81 8:39 AM PROTECTIVE SERVICES CASE WORKER x10(9)/L Eosinophils 0.53 (H) 0.03 - 11/07/2021 [place] 0.48 8:39 AM PROTECTIVE SERVICES CASE WORKER x10(9)/L Basophils 0.10 (H) 0.01 - 11/07/2021 [place] 0.08 8:39 AM PROTECTIVE SERVICES CASE WORKER x10(9)/L Specimen Anatomical Collection Method Collection Time Receive d Time (Source) Location / / Volume Laterality Blood (Blood, 11/07/2021 8:32 AM 11/07/19 8:39 Venous) PROTECTIVE SERVICES CASE WORKER AM PROTECTIVE SERVICES CASE WORKER Shayla Alford D.O. LAB BLOOD ADD-ON Performing Organization Address City/State/ZIP Code Phon e Number [facility]- [address] [place] [address] [place] [address] System in [place] [address] [facility] (ABNORMAL) Basic Metabolic Panel (11/07/2021 8:32 AM PROTECTIVE SERVICES CASE WORKER) Analysis Performed At Patho logist Time Signature Potassium, P 4.0 3.6 - 5.2 11/07/2021 [place] mmol/L 9:12 AM PROTECTIVE SERVICES CASE WORKER Sodium, P 138 135 - 145 11/07/2021 [place] mmol/L 9:12 AM PROTECTIVE SERVICES CASE WORKER Chloride, P 107 98 - 107 11/07/2021 [place] mmol/L 9:12 AM PROTECTIVE SERVICES CASE WORKER Bicarbonate, P 21 (L) 22 - 29 11/07/2021 [place] mmol/L 9:12 AM PROTECTIVE SERVICES CASE WORKER Anion Gap, P 10 7 - 15 11/07/2021 [place] 9:12 AM PROTECTIVE SERVICES CASE WORKER BUN (Blood Urea 28 (H) 8 - 24 11/07/2021 [place] Nitrogen), P mg/dL 9:12 AM PROTECTIVE SERVICES CASE WORKER Creatinine 1.46 (H) 0.74 - 11/07/2021 [place] 1.35 mg/dL 9:12 AM PROTECTIVE SERVICES CASE WORKER eGFR-Black/Afri 53 (L) >=60 11/07/2021 [place] can [place] mL/min/BSA 9:12 AM PROTECTIVE SERVICES CASE WORKER Comment: ----ADDITIONAL INFORMATION---- Estimated GFR calculated using the 2009 CKD_EPI creatinine equation. eGFR Non-Black/ 45 (L) >=60 mL/min/BSA 11/07/2021 9:12 AM PROTECTIVE SERVICES CASE WORKER [place] Comment: ----ADDITIONAL INFORMATION---- Estimated GFR calculated using the 2009 CKD_EPI creatinine equation. Calcium, Total, P 8.8 8.8 - 10.2 mg/dL 11/07/2021 9:12 AM PROTECTIVE SERVICES CASE WORKER [place] Glucose, P 157 (H) 70 - 140 mg/dL 11/07/2021 9:12 AM PROTECTIVE SERVICES CASE WORKER O MRACK Specimen Anatomical Collection Method Collection Time Receive d Time (Source) Location / / Volume Laterality Blood (Blood, 11/07/2021 8:32 AM 11/07/19 8:46 Venous) PROTECTIVE SERVICES CASE WORKER AM PROTECTIVE SERVICES CASE WORKER Shayla Alford D.O. LAB BLOOD ADD-ON Performing Organization Address City/State/ZIP Code Phon e Number [facility]- [address] [place] [address] [place] [facility] [place] [address] System in [place] [address] (ABNORMAL) Hemoglobin A1c (11/07/2021 8:32 AM PROTECTIVE SERVICES CASE WORKER) P athologist Signature Hemoglobin A1c, 9.5 (H) 4.2 - 5.6 11/07/2021 [place] B % 8:51 AM PROTECTIVE SERVICES CASE WORKER Comment: Hemoglobin A1c values greater than or eq ual to 6.5 percent are diagnostic for diabetes mellitus. ?? Diagnosis should be confirmed by repeat testing. ??In diabet ic patients, HbA1c goals should be discussed with healthcar e provider. Specimen Anatomical Collection Method Collection Time Receive d Time (Source) Location / / Volume Laterality Blood (Blood, 11/07/2021 8:32 AM 11/07/19 8:51 Venous) PROTECTIVE SERVICES CASE WORKER AM PROTECTIVE SERVICES CASE WORKER Shayla Alford D.O. LAB BLOOD ADD-ON Performing Organization Address City/State/ZIP Code Phon e Number [facility]- [address] [place] [address] [facility] [place] [facility] [place] [address] System in [place] [address] documented in this encounter Visit Diagnoses Diagnosis Diabetes Mellitus Type 2 With Diabetic C hronic Kidney Disease (HCC) Preoperative Exam documented in this encounter Additional Health Concerns Assessment Noted Time PHQ-9 Depression Total Score: 18 04/28/2018 11:27 AM C DT documented as of this encounter Care Teams Trimmer And Borer Machine Operator Relationship Specialty Start Date End Date Shayla Alford D.O. PCP - General Internal Medicine 05/22/[address] [phone] documented as of this encounter
--- OUTSIDE RECORDS SUMMARY | 2022-05-21 11:16 | XMS_ITS | Encounter Summary ---
:[address] [facility] Address [address] [place] [address] Care Team Providers Name Role Phone Shayla Alford D.O. Primary Care Provider [phone] Encounter Details Date Type Department Care Team Description 09/17/2021 Hospital Encounter Department of Cirilo Bernal Neoplasm Of Laboratory Medicine Pato Mims Bladder Lateral Wall in [place], [address] ([facility]) [address] [place] [phone] Social History Tobacco Use Types Packs/Day Years [...] or relatives? How often do you attend taoist or Never 2021 confucianist services? Do you belong to any clubs or No 10/09/2021 organizations such as taoist groups, unions, fraternal or athletic groups, or [...] place to sleep or slept in a penitentiary (including now)? Education Answer Date Recorded What is the highest level of school Master's degree (e.g., M [place], [place], 03/23/2019 you have completed or the highest Martin, MEd, EDGER FEEDER, CAYDEN) degree you have received? Sex Assigned [...] (FREESTYLE SOFYA) times a day. Use to [facility] scan Sofya sensor 5 times daily and [...] PEN NEEDLE, DIABETIC Yani Fine 30 0 [facility] disposable needles. For use with Insulin Pens, 4 times daily SYRINGE-NEEDLE,INSULIN,0 0 .5 ML (INSULIN SYRINGE [facility]) traZODone (DESYREL) 100 Take 0.5 tablets (50 [...] 22 (PRINIVIL,ZESTRIL) 10 mg mouth daily. tablet losartan (COZAAR) 25 mg Take 1 tablet (25 mg 90 tablet 3 10/09/2021 tablet total) by mouth daily. metFORMIN (GLUMETZA) Take 1 tablet by 0 9 11/07/2021 1,000 mg 24 hr tablet mouth daily. predniSONE (DELTASONE) 0 09/02/2021 10 mg tablet torsemide (DEMADEX) 20 Take 2 tablets (40 180 tablet 3 05/1610/09/2021 mg tabletIndications: mg total) by mouth Hypertension Essential every morning before Primary breakfast. documented as of this encounter Plan of Treatment Not on filedocumented as of this encounter Procedures Procedure Name Priority Date/Time Associated Comments Diagnosis BACTERIAL CULTURE, Routine 09/17/2021 9:01 AM Malignant Neopla sm Results for this AEROBIC + SUSC, URINE FIELD INSTALLATION TECHNICIAN Of Bladder Lateral procedure are in [place] ([facility]) the results section. URINALYSIS WITH Routine 09/17/2021 9:01 AM Malignant Neoplasm Results for this MICROSCOPIC FIELD INSTALLATION TECHNICIAN Of Bladder Lateral procedure are in [place] ([facility]) the results section. documented in this encounter Results (ABNORMAL) Bacterial Culture, Aerobic + Susc, Urine (09/17/2021 9:01 AM FIELD INSTALLATION TECHNICIAN) Analysis Performed At Patho logist Time Signature Urine Culture Mixed 09/18/2021 MKTO surekha. (A) 9:23 AM FIELD INSTALLATION TECHNICIAN Specimen Anatomical Collection Method Collection Time Receive d Time (Source) Location / / Volume Laterality Urine (Urine, 09/17/2021 9:01 AM 09/17/20 2:06 Midstream) FIELD INSTALLATION TECHNICIAN PM FIELD INSTALLATION TECHNICIAN Comment: Specimen Source Site: Urine Prasanna Bernal M.D. LAB MICROBIOLOGY - GENERAL O RDERABLES Performing Organization Address City/State/ZIP Code Phon e Number [facility] [place] [address] [place] [address] System in [place] [address] [place] [address] (ABNORMAL) Urinalysis with Microscopic: Urine, Midstream (09/17/2021 9:01 AM FIELD INSTALLATION TECHNICIAN) Analysis Performed At Patho logist Time Signature Source Urine, Urine, 09/17/2021 FB60 Midstream 9:02 AM FIELD INSTALLATION TECHNICIAN Clarity Clear Clear 09/17/2021 FB60 9:10 AM FIELD INSTALLATION TECHNICIAN Color Yellow 09/17/2021 FB60 9:10 AM FIELD INSTALLATION TECHNICIAN Comment: ----REFERENCE VALUE---- Colorless Yellow Mitra Blood Moderate (A) Negative 09/17/2021 9:10 AM FIELD INSTALLATION TECHNICIAN FB60 Nitrite Negative Negative 09/17/2021 9:10 AM FIELD INSTALLATION TECHNICIAN FB60 Leukocyte Esterase Negative Negative 09/17/2021 9:10 AM CS T FB60 Protein 100 (A) mg/dL 09/17/2021 9:10 AM FIELD INSTALLATION TECHNICIAN FB60 Comment: ----REFERENCE VALUE---- Negative Trace Glucose >=1000 (A) Negative mg/dL 09/17/2021 9:10 AM FIELD INSTALLATION TECHNICIAN F B60 Ketones, QI(U) Negative Negative mg/dL 09/17/2021 9:[address] FB60 Bilirubin Negative Negative 09/17/2021 9:10 AM FIELD INSTALLATION TECHNICIAN FB60 pH 5.5 5.0 - 8.0 09/17/2021 9:10 AM FIELD INSTALLATION TECHNICIAN FB60 Specific Anderson 1.015 1.001 - 1.035 09/17/2021 9:10 AM FIELD INSTALLATION TECHNICIAN FB60 Urobilinogen 0.2 0.2 - 1.0 mg/dL 09/17/2021 9:10 AM CS T FB60 White Blood Cells 4-10 (A) /hpf 09/17/2021 9:25 AM FIELD INSTALLATION TECHNICIAN FB60 Comment: ----REFERENCE VALUE---- Males: 0-3 Females: 0-10 Unknown: 0-10 Red Blood Cells 3-10 (A) 0 - 2 /hpf 09/17/2021 9:25 AM FIELD INSTALLATION TECHNICIAN FB60 Dysmorphic Red Blood Cells <=25 <=25 % 09/17/2021 9: 25 AM FIELD INSTALLATION TECHNICIAN FB60 Specimen Anatomical Collection Method Collection Time Receive d Time (Source) Location / / Volume Laterality Urine (Urine, 09/17/2021 9:01 AM 12/20/20 21 9:01 Midstream) FIELD INSTALLATION TECHNICIAN AM FIELD INSTALLATION TECHNICIAN Prasanna Bernal M.D. 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 PCP - General Internal Medicine 05/22/202199 [address] [place] [phone] documented as of this encounter
--- OUTSIDE RECORDS SUMMARY | 2022-05-21 11:16 | XMS_ITS | Encounter Summary ---
:1945 Author Organization [facility] Address [address] [place] [address] Care Team Providers Name Role Phone Shayla Alford D.O. Primary Care Provider Reason for Referral Outpatient (Routine) - Authorized Specialty Diagnoses / Procedures Referred By Contact Refer red To Contact Pharmacy Diagnoses Diabetes Mellitus Type 2 With Diabetic Chronic Kidney Disease (HCC) Shayla Salazar [facility] Region D.O. [address] [place] [phone] Referral ID Status Reason Start Date Expiration Date Visits V isits Requested Authorized [id number] Authorized 11/06/2021 11/06/2022 1 1 ACCESS TECHNICIAN Outpatient (Routine) - Closed Specialty Diagnoses / Procedures Referred By Contact Refer red To Contact Diagnoses Preoperative Exam Shayla Alford [facility] Region Procedures ECG 12 Lead D.O. [address] [place] [phone] Referral ID Status Reason Start Date Expiration Date Visits Requ ested Visits Authorized [id number] Closed 11/06/2021 11/06/2022 1 1 ACCESS TECHNICIAN Reason for Visit Reason Comments Pre-op Exam 11/14 Dr. 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 [facility] Region [address] [place] [phone] Referral ID Status Reason Start Date Expiration Date Visits Requ ested Visits Authorized [id number] Closed 10/25/2021 10/25/2022 1 1 Encounter Details Date Type Department Care Team Description 11/06/2021 [facility] (Congestive) Heart Failure (HCC) (Primary Dx); Internal Medicine in Shayla D. O. 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 How often do you attend denominational or Never 2021 amish services? Do you belong to any clubs or No 10/09/2021 organizations such as denominational groups, unions, fraternal or athletic groups, or [...] completed or the highest Martin, MEd, MARKET RESEARCH ASSISTANT, CAYDEN) degree you have received? Sex Assigned at Date Recorded Male 05/21/2018 2:34 PM CDT documented as of this encounter H&P Notes Shayla Alford D.O. - 11/06/2021 9:30 AM CST INTERNAL MEDICINE PREOPERATIVE EXAM: DATE OF SERVICE 11/06/2021 LOCATION OF SERVICE [facility] CHIEF COMPLAINT/REASON FOR VISIT Preoperative exam Chief Complaint Patient presents with ??? Pre-op Exam 11/14 Dr. Bernal REFERRED BY/ SURGEON: HISTORY OF PRESENT ILLNESS *Jonnathan Costa Is a very pleasant 76-year-old male well known to my internal medicine practice with past medical history significant for systolic congestive heart failure, type 2 diabetes, hypertension, obstructive sleep apnea, history of pancreatitis, presents today for preoperative evaluation to undergo transurethral resection of a bladder tumor on 11/14/[address] Prasanna Bernal. from, cardiovascular standpoint, he has been volume compensated. Echocardiogram 11/17/2020 showed an EF of 50%, with [id number] mitral valve regurgitation. His blood pressure has been stable 128/64 with heart rate 53 and oxygen saturation of 98%. He denies [...] improving his diabetes. Last hemoglobin A1c was 8. 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 Due to worsening kidney function, his metformin had to be stopped. He is now on long-acting insulin and short- acting. We did talk in the past about Trulicity and benefits of this medication. As well as the convenience of once weekly dosing. We did review in detail side effects including the are small risk of less than 1% of pancreatitis. Nohistory of thyroid disease is was thyroid cancer. The patient apparently has also discussed this with his provider at the [place]. He would like a prescription sent in to the [place] today. We discussed importance of titration of the medication, and ensuring he does not have any hypoglycemia since he is also oninsulin. He assured me that [facility] and that he will be keeping a close eye on his blood glucose level. We are happy to see him for diabetic management here as well in [place]. Hementions that he is required to [facility] to be [facility]. Otherwise he has no other concerns or issues. Past Medical History: Diagnosis Date ??? Apnea Sleep Obstructive 06/18/2011 intolerant to CPAP therapy ??? Asthma (HCC) 10/16/2009 Pulmonary symptomatology, diagnosis at the [place] unclear, but probably some degree of COPD. [...] INSERTION INTRAOCULAR LENS Left 04/2008 At the [place] ??? LASER OF PROSTATE W/ GREEN LIGHT PVP 08/28/2016 Greenlight photoselective vaporization of the prostate and cystoscopy with bladder biopsy and fulguration of a 2cm area; 08/28/[address] Prasanna Bernal at the [facility]. ??? TONSILLECTOMY ??? TONSILLECTOMY 1967 ??? VASECTOMY [...] Master's degree (e.g., MA, MS, Martin, MEd, MARKET RESEARCH ASSISTANT, CAYDEN) Occupational History Employer: RETIRED Tobacco Use [...] and Family: Once a week ??? Attends Christian Services: Never ??? Active Member of Clubs [...] by mouth daily. 30 tablet 11 ??? indomethacin (INDOCIN) 25 mg capsule Take 25 mg by mouth 3 (three) times a day with meals. ??? insulin aspart U-100 (NovoLOG FlexPen) 100 unit/mL (3 mL) injection Inject 11 Units under the skin 3 (three) times a day with meals. (Patient taking differently: Inject 10-30 Units under the skin 3(three) times a day with meals. Sliding scale dose) ??? insulin glargine (Lantus U-100 Insulin) 100 [...] with Insulin Pens, 4 times daily ??? SYRINGE-NEEDLE,INSULIN,0.5 ML (INSULIN SYRINGE MISC) ??? torsemide (DEMADEX) 20 mg tablet Take 1 tablet (20 mg total) by mouth every morning before breakfast. 90 tablet 3 ??? traZODone (DESYREL) 100 mg tablet Take 0.5 tablets (50 mg total) by mouth at bedtime as needed for sleep. 30 tablet 1 ??? traZODone (DESYREL) 50 mg tablet Take 1 tablet by mouth at bedtime as needed. ??? flash glucose scanning reader (FREESTYLE SOFYA) [...] MOUTH NEEDED FOR LOW BLOOD SUGAR ??? metFORMIN (GLUMETZA) 1,000 mg 24 hr tablet Take 1 tablet by mouth daily. ??? [DISCONTINUED] gemfibroziL (LOPID) 600 mg tablet Take 1 tablet by mouth. ??? [DISCONTINUED] lisinopriL (PRINIVIL,ZESTRIL) 10 mg tablet Take 1 tablet by mouth daily. ??? [DISCONTINUED] predniSONE (DELTASONE) 10 mg tablet No current facility-administered medications on file prior to visit. SYSTEMS REVIEW A comprehensive review of systems is negative except for those items stated within the content of the HPI. There were no vitals taken for this visit. PHYSICAL EXAMINATION GENERAL: Well-nourished, well-developed 76 y.o. [...] DIAGNOSTICS: Lab Results Component Value Date WBC 7.2 07/11/2021 HGB 12.1 (L) 07/11/2021 HCT 34.8 (L) 07/11/2021 MCV 91.3 07/11/2021 PLT 178 07/11/2021 Lab Results Component Value Date NA 133 (L) 10/09/2021 CL 98 10/09/2021 CREATININE 1.69 (H) 10/09/2021 BUN 38 (H) 10/09/2021 ANIONGAP 13 10/09/2021 GLUCOSE 440 (Crit H) 10/09/2021 CALCIUM 8.9 10/09/2021 EKG 11/06/2021: IMPRESSION/REPORT/PLAN Jonnathan was seen today for pre-op exam. 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 Echocardiogram 11/17/2020 showed an EF of 50%, with hpuq-nw-gunwzysf mitral valve regurgitation. His blood pressure has been stable 128/64 with heart rate 53 and oxygen saturation of 98%. He denies [...] improving his diabetes. Last hemoglobin A1c was 8. 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 Due to worsening kidney function, his metformin had to be stopped. He is now on long-acting insulin and short- acting. We did talk in the past about Trulicity and benefits of this medication. As well as the convenience of once weekly dosing. We did review in detail side effects including the are small risk of less than 1% of pancreatitis. Nohistory of thyroid disease is was thyroid cancer. The patient apparently has also discussed this with his provider at the [place]. He would like a prescription sent in to the [place] today. We discussed importance of titration of the medication, and ensuring he does not have any hypoglycemia since he is also oninsulin. He assured me that [facility] and that he will be keeping a close eye on his blood glucose level. We are happy to see him for diabetic management here as well in [place]. Hementions that he is required to [facility] be [facility] to [facility]. Otherwise he has no other concerns or issues. - ECG 12 Lead; Future - Basic Metabolic Panel; Future - CBC with Differential, Blood; Future - dulaglutide (Trulicity) 0.75 mg/0.5 mL injection; Inject 0.5 mL (0.75 mg total) under the skin every 7 (seven) days. - Hemoglobin A1c; Future - Pharmacy - Medication therapy management consult (clinic); Future For preoperative medication management, the patient will hold his short-acting insulin the morning of the procedure. He will take half of his Lantus the night before the procedure. Or dose of 12 units of Lantus. He will hold his Plavix 7 days prior to the procedure. Otherwise, he can not continue the rest of his medications unchanged unless otherwise instructed byhis surgeon. Jonnathan Costa presented today for preoperative examination. He can perform more than 4 Mets with no difficulties, no history of PE DVT no anesthesia reaction no history of GI bleed, no history of arrhythmia. Based on his history and examination they are medically optimized for surgical interven tion from the perspective of internal medicine. No further workup is required at this time. Electronically signed by: Shayla Alford D.O. 11/06/21 9:49 AM VEIN ACCESS TECHNICIAN Time spent 58 minutes ACCESS TECHNICIAN documented in this encounter Plan of Treatment Scheduled Referrals Name Type Priority Associated Order Schedule Diagnoses Pharmacy - Outpatient Referral Routine Diabetes Mellitus Exp ected: Medication therapy Type 2 With 2 management consult Diabetic Chronic (Appr oximate), (clinic) Kidney Disease Expires: (HCC) 02/03/2023 documented as of this encounter Results ECG 12 Lead (11/07/2021 8:40 AM VEIN ACCESS TECHNICIAN) P athologist Signature Ventricular Rate 47 BPM MUSE ECG/Min RI Interval 230 ms MUSE QRSD Interval 112 ms MUSE QT Interval 498 ms MUSE QTC Interval 440 ms MUSE P [place] 87 degrees MUSE R [place] -35 degrees MUSE T Wave [place] 6 degrees MUSE Specimen Anatomical Collection Method Collection Time Receive d Time (Source) Location / / Volume Laterality 11/07/2021 8:40 AM 2 9:10 VEIN ACCESS TECHNICIAN AM VEIN ACCESS TECHNICIAN Impressions MUSE - 11/07/2021 9:10 AM VEIN ACCESS TECHNICIAN Marked sinus bradycardia with 1st degree A-V [...] Code Phon e Number MUSE MUSE NA (ABNORMAL) CBC with Differential, Blood (11/07/2021 8:32 AM VEIN ACCESS TECHNICIAN) Patholo gist Method Time Signature Hemoglobin 11.8 (L) 13.2 - 11/07/2021 [place] 16.6 g/dL 8:39 AM VEIN ACCESS TECHNICIAN Hematocrit 34.6 (L) 38.3 - 11/07/2021 [place] 48.6 % 8:39 AM VEIN ACCESS TECHNICIAN Erythrocytes 3.86 (L) 4.35 - 11/07/2021 [place] 5.65 8:39 AM VEIN ACCESS TECHNICIAN x10(12)/L MCV 89.6 78.2 - 11/07/2021 [place] 97.9 fL 8:39 AM VEIN ACCESS TECHNICIAN RBC Distrib Width 13.8 11.8 - 11/07/2021 [place] 14.5 % 8:39 AM VEIN ACCESS TECHNICIAN Platelet Count 187 135 - 317 11/07/2021 [place] x10(9)/L 8:39 AM VEIN ACCESS TECHNICIAN Leukocytes 6.5 3.4 - 9.6 11/07/2021 [place] x10(9)/L 8:39 AM VEIN ACCESS TECHNICIAN Neutrophils 4.26 1.56 - 11/07/2021 [place] 6.45 8:39 AM VEIN ACCESS TECHNICIAN x10(9)/L Lymphocytes 1.11 0.95 - 11/07/2021 [place] 3.07 8:39 AM VEIN ACCESS TECHNICIAN x10(9)/L Monocytes 0.53 0.26 - 11/07/2021 [place] 0.81 8:39 AM VEIN ACCESS TECHNICIAN x10(9)/L Eosinophils 0.53 (H) 0.03 - 11/07/2021 [place] 0.48 8:39 AM VEIN ACCESS TECHNICIAN x10(9)/L Basophils 0.10 (H) 0.01 - 11/07/2021 [place] 0.08 8:39 AM VEIN ACCESS TECHNICIAN x10(9)/L Specimen Anatomical Collection Method Collection Time Receive d Time (Source) Location / / Volume Laterality Blood (Blood, 11/07/2021 8:32 AM 11/07/19 22 8:39 Venous) VEIN ACCESS TECHNICIAN AM VEIN ACCESS TECHNICIAN Shayla Alford D.O. LAB BLOOD ADD-ON Performing Organization Address City/State/ZIP Code Phon e Number [facility] [address] [place] [address] [facility] [place] [address] System in [place] [address] (ABNORMAL) Basic Metabolic Panel (11/07/2021 8:32 AM VEIN ACCESS TECHNICIAN) Analysis Performed At Patho logist Time Signature Potassium, P 4.0 3.6 - 5.2 11/07/2021 [place] mmol/L 9:12 AM VEIN ACCESS TECHNICIAN Sodium, P 138 135 - 145 11/07/2021 [place] mmol/L 9:12 AM VEIN ACCESS TECHNICIAN Chloride, P 107 98 - 107 11/07/2021 [place] mmol/L 9:12 AM VEIN ACCESS TECHNICIAN Bicarbonate, P 21 (L) 22 - 29 11/07/2021 [place] mmol/L 9:12 AM VEIN ACCESS TECHNICIAN Anion Gap, P 10 7 - 15 11/07/2021 [place] 9:12 AM VEIN ACCESS TECHNICIAN BUN (Blood Urea 28 (H) 8 - 24 11/07/2021 [place] Nitrogen), P mg/dL 9:12 AM VEIN ACCESS TECHNICIAN Creatinine 1.46 (H) 0.74 - 11/07/2021 [place] 1.35 mg/dL 9:12 AM VEIN ACCESS TECHNICIAN eGFR-Black/Afri 53 (L) >=60 11/07/2021 [place] can [place] mL/min/BSA 9:12 AM VEIN ACCESS TECHNICIAN Comment: ----ADDITIONAL INFORMATION---- Estimated GFR calculated using the 2009 CKD_EPI creatinine equation. eGFR Non-Black/ 45 (L) >=60 mL/min/BSA 11/07/2021 9:12 AM VEIN ACCESS TECHNICIAN [place] Comment: ----ADDITIONAL INFORMATION---- Estimated GFR calculated using the 2009 CKD_EPI creatinine equation. Calcium, Total, P 8.8 8.8 - 10.2 mg/dL 11/07/2021 9:12 AM VEIN ACCESS TECHNICIAN [place] Glucose, P 157 (H) 70 - 140 mg/dL 11/07/2021 9:12 AM VEIN ACCESS TECHNICIAN O MARCK Specimen Anatomical Collection Method Collection Time Receive d Time (Source) Location / / Volume Laterality Blood (Blood, 11/07/2021 8:32 AM 11/07/19 22 8:46 Venous) VEIN ACCESS TECHNICIAN AM VEIN ACCESS TECHNICIAN Shayla Alford D.O. LAB BLOOD ADD-ON Performing Organization Address City/State/ZIP Code Phon e Number [facility] [address] [place] [address] [place] [address] System in [place] [address] (ABNORMAL) Hemoglobin A1c (11/07/2021 8:32 AM VEIN ACCESS TECHNICIAN) P athologist Signature Hemoglobin A1c, 9.5 (H) 4.2 - 5.6 11/07/2021 [place] B % 8:51 AM VEIN ACCESS TECHNICIAN Comment: Hemoglobin A1c values greater than or eq ual to 6.5 percent are diagnostic for diabetes mellitus. ?? Diagnosis should be confirmed by repeat testing. ??In diabet ic patients, HbA1c goals should be discussed with healthcar e provider. Specimen Anatomical Collection Method Collection Time Receive d Time (Source) Location / / Volume Laterality Blood (Blood, 11/07/2021 8:32 AM 11/07/19 8:51 Venous) VEIN ACCESS TECHNICIAN AM VEIN ACCESS TECHNICIAN Shayla Alford D.O. 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) Diabetes Mellitus Type 2 With Diabetic C hronic Kidney Disease (HCC) Hypertension Essential Primary Hypothyroidism Preoperative Exam Chronic Obstructive Pulmonary Disease (H CC) Pancreatitis Chronic (HCC) Atherosclerotic Heart Disease [place] Cor onary Artery With Other Forms Angina Pectoris (Angina Equivalent) (HCC) Preoperative Exam documented in this encounter Additional Health Concerns Assessment Noted Time PHQ-9 Depression Total Score: 18 04/28/2018 11:27 AM C DT documented as of this encounter Care Teams Liner Installer Relationship Specialty Start Date End Date Shayla Alford D.O. PCP - General Internal Medicine 05/22/202199 [place] [phone] documented as of this encounter
--- OUTSIDE RECORDS SUMMARY | 2022-05-21 11:16 | XMS_ITS | Encounter Summary ---
:1945 Author Organization [facility] Address [address] [place] [address] Care Team Providers Name Role Phone Shayla Alford D.O. Primary Care Provider [phone] Encounter Details Date Type Department Care Team Description 10/18/2021 Hospital Encounter Department of Prateek Bernal Primary; Laboratory Medicine Pato Mims Chronic Kidney Disease (CKD), Stage 3b G lomerular Filtration Rate (GFR) 30 To 44 (HCC); in [place] Malignant Neop lasm Of Bladder Lateral Wall (HCC) [address] [place] KO[place] [phone] Social History Tobacco Use Types Packs/Day Years [...] or relatives? How often do you attend voodoo or Never 2021 baptist services? Do you belong to any clubs or No 10/09/2021 organizations such as voodoo groups, unions, fraternal or athletic groups, or [...] place to sleep or slept in a alf (including now)? Education Answer Date Recorded What is the highest level of school Master's degree (e.g., M [place], [place], 03/23/2019 you have completed or the highest Martin, MEd, SENIOR MANUFACTURING TECHNICIAN, [place]) degree you have received? Sex Assigned [...] (FREESTYLE SOFYA) times a day. [place] [facility] [place] Sofya sensor 5 times daily [...] PEN NEEDLE, DIABETIC Yani Fine 30 0 [facility] disposable needles. For use with Insulin Pens, 4 times daily SYRINGE-NEEDLE,INSULIN,0 0 .5 ML (INSULIN SYRINGE [facility]) torsemide (DEMADEX) 20 Take 1 tablet (20 [...] Name Priority Date/Time Associated Diagnosis Comme nts CYTOLOGY NON-LAY OUT MAKER Routine 10/18/2021 10:20 Malignant Neoplasm O f Results for this (SCHEDULED) AM PROPERTY CLERK Bladder Lateral Wall procedu re are in ([facility]) the results section. UROVYSION (R) FOR Routine 10/18/2021 10:20 Malignant Neoplasm Of Results for this BLADDER CANCER AM PROPERTY CLERK Bladder Lateral Wall proce dure are in ([facility]) the results section. ALBUMIN, RANDOM, U Routine 10/18/2021 10:20 Hypertension Resul ts for this AM PROPERTY CLERK Essential Primar y procedure are in Chronic Kidney the results Disease (CKD), Stage section . 3b Glomerular Filtration Rate (GFR) 30 To 44 ([facility]) URINALYSIS WITH Routine 10/18/2021 10:20 Hypertension Results for this MICROSCOPIC AM PROPERTY CLERK Essential Primar y procedure are in Chronic Kidney the results Disease (CKD), Stage section . 3b Glomerular Filtration Rate (GFR) 30 To 44 ([facility]) documented in this encounter Results UroVysion for Detection of Bladder Cancer, Urine (10/18/2021 10:20 AM PROPERTY CLERK) Component Value Ref Test Analysis Performed Pathologis t Range Method Time At [facility] Result Summary Negative 11/05/2021 DTL 5:07 PM PROPERTY CLERK Karyotype No evidence of 11/05/2021 DTL urothelial 5:07 PM PROPERTY CLERK carcinoma. Reason for Evaluate for 11/05/2021 DTL referral urothelial 5:07 PM PROPERTY CLERK carcinoma. Specimen Varies 11/05/2021 DTL 5:07 PM PROPERTY CLERK Source Voided 11/05/2021 DTL 5:07 PM PROPERTY CLERK Released By Dhiraj Porras, 11/05/2021 DTL M.D. 5:07 PM PROPERTY CLERK Interpretation This test result does not rule out the possibility t hat the 11/05/2021 DTL patient may have a low-grade (i.e. grade 1 or 2) 5:07 PM PROPERTY CLERK non-invasive papillary urothelial carcinoma. Some patients with low grade non-invasive papillary urothelial carcinoma do not have abnormalities with this FISH test. Comment: ----ADDITIONAL INFORMATION---- Fluorescence in situ hybridization (FISH ) with centromere probes for chromosomes 3 (D3Z1), 7(D7Z1), 17(D17Z1) , and a locus specific probe for 9p21 ([employer] [place], [place]) . This test has been modified from the man markor's instructions. Its performance characteristics were determi darnell by [facility] in a manner consistent with CLIA requirements. This test has not been cleared or approved by the U.S. Food and Drug Administration . Specimen Anatomical Collection Method Collection Time Receive d Time (Source) Location / / Volume Laterality Varies (Urine, 10/18/2021 10:20 2 Voided) AM PROPERTY CLERK 11:31 AM PROPERTY CLERK Narrative This result has an attachment that is no t available. Prasanna Bernal M.D. LAB GENETIC TESTING Performing Organization Address City/State/ZIP Code Phon e Number [facility] - [address] [place], [place] [address] [facility] [place] [address] [facility] [address] Cytology Non-LAY OUT MAKER (Scheduled) (10/18/2021 10:20 AM PROPERTY CLERK) Component Value Ref Test Analysis Performed At [facility] gist Range Method Time Signature 10/19/2021 [facility] 9:33 AM PROPERTY CLERK Fixative 50% alcohol 10/19/2021 [facility] 9:33 AM PROPERTY CLERK Report Brady Goodrich MD 10/19/2021 [facility] electronically 9:33 AM PROPERTY CLERK signed by I verify that I have examined all relevant slides/materials for the specimen(s) and rendered or confirmed the diagnosis. Gross Description Received 50 10/19/2021 [facility] ml of yellow 9:33 AM PROPERTY CLERK alcohol fixed fluid. Collection clean void 10/19/2021 [facility] Procedure 9:33 AM PROPERTY CLERK Source A. Urine, 10/19/2021 [facility] Clean Catch, 9:33 AM PROPERTY CLERK voided Clinical History unknown 10/19/2021 [facility] 9:33 AM PROPERTY CLERK Interpretation A. Urine, Clean Catch, voided (cytospin): Negative f or 10/19/2021 [facility] High-Grade Urothelial Carcinoma. 9:33 AM PROPERTY CLERK Specimen Anatomical Collection Method Collection Time Receive d Time (Source) Location / / Volume Laterality Varies (Urine, 10/18/2021 10:20 2:04 Clean Catch) AM PROPERTY CLERK PM PROPERTY CLERK Narrative This result has an attachment that is no t available. Prasanna Bernal M.D. LAB SURG PATH ORDERABLES Performing Organization Address City/State/ZIP Code Phon e Number [facility]- [address] [place] [address] Cyt[address] [place] [address] (ABNORMAL) Albumin, Random, Urine (10/18/2021 10:20 AM PROPERTY CLERK) [facility] gist Method Time Signature Microalbumin 66.0 mg/L 10/18/2021 OWAT 1:14 PM PROPERTY CLERK Creatinine 26 mg/dL 10/18/2021 OWAT 1:14 PM PROPERTY CLERK Albumin/Creatinin 254 (H) <17 mg/g 10/18/2021 OWAT e Ratio 1:14 PM PROPERTY CLERK Specimen Anatomical Collection Method Collection Time Receive d Time (Source) Location / / Volume Laterality Urine (Urine, 10/18/2021 10:20 10/18/2021 Clean Catch) AM PROPERTY CLERK 12:44 PM PROPERTY CLERK Melissa Blackmon LAB URINE ORDERABLES Performing Organization Address City/State/ZIP Code Phon e Number [facility] [address] [facility] [place] [address] [facility] [place] [address] System in [place] [address] [facility] (ABNORMAL) Urinalysis with Microscopic: Urine, Midstream (10/18/2021 10:20 AM PROPERTY CLERK) Analysis Performed At Patho logist Time Signature Source Urine, Urine, 10/18/2021 FB60 Midstream 10:31 AM PROPERTY CLERK Clarity Clear Clear 10/18/2021 FB60 11:03 AM PROPERTY CLERK Color Yellow 10/18/2021 FB60 11:03 AM PROPERTY CLERK Comment: ----REFERENCE VALUE---- Colorless Yellow Mitra Blood Negative Negative 10/18/2021 11:03 AM PROPERTY CLERK FB60 Nitrite Negative Negative 10/18/2021 11:03 AM PROPERTY CLERK FB60 Leukocyte Esterase Negative Negative 10/18/2021 11:[address] FB60 Protein Negative mg/dL 10/18/2021 11:03 AM PROPERTY CLERK FB60 Comment: ----REFERENCE VALUE---- Negative Trace Glucose >=1000 (A) Negative mg/dL 10/18/2021 11:03 AM PROPERTY CLERK FB60 Ketones, QI(U) Negative Negative mg/dL 10/18/2021 11:03 AM PROPERTY CLERK FB60 Bilirubin Negative Negative 10/18/2021 11:03 AM PROPERTY CLERK FB60 pH 5.5 5.0 - 8.0 10/18/2021 11:03 AM PROPERTY CLERK FB60 Specific [place] 1.010 1.001 - 1.035 10/18/2021 11:03 AM PROPERTY CLERK FB60 Urobilinogen 0.2 0.2 - 1.0 mg/dL 10/18/2021 11:[address] FB60 White Blood Cells Occ-3 /hpf 10/18/2021 11:04 AM CS T FB60 Comment: ----REFERENCE VALUE---- Males: 0-3 Females: 0-10 Unknown: 0-10 Red Blood Cells None Seen 0 - 2 /hpf 10/18/2021 11:04 AM PROPERTY CLERK FB60 Specimen Anatomical Collection Method Collection Time Receive d Time (Source) Location / / Volume Laterality Urine (Urine, 10/18/2021 10:20 10/18/2021 Midstream) AM PROPERTY CLERK 10:31 AM PROPERTY CLERK Melissa Blackmon LAB URINE ORDERABLES Performing Organization Address City/State/ZIP Code Phon e Number [facility] [address] [place] [address] [facility] [place] [address] System in [place] [address] documented in this encounter Visit Diagnoses Diagnosis Hypertension Essential Primary Chronic Kidney Disease (CKD), Stage 3b G lomerular Filtration Rate (GFR) 30 To 44 (HCC) 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 (HCC) documented in this encounter Additional Health Concerns Assessment Noted Time PHQ-9 Depression Total Score: 18 04/28/2018 11:27 AM C DT documented as of this encounter Care Teams Dressing Room Attendant Relationship Specialty Start Date End Date Shayla Alford D.O. PCP - General Internal Medicine 05/22/20 [address] [place] [phone] documented as of this encounter
--- OUTSIDE RECORDS SUMMARY | 2022-05-21 11:16 | XMS_ITS | Encounter Summary ---
:1945 Author Organization [facility] Address [address] [place] [address] Care Team Providers Name Role Phone Shayla Alford D.O. Primary Care Provider [phone] Reason for Referral Outpatient (Routine) - Authorized Specialty Diagnoses / Procedures Referred By Contact Refer red To Contact Nephrology and Melissa Ferrer [place] [facility] Hypertension M.B.B.S. 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 [address] [place] [address] Referral ID Status Reason Start Date Expiration Date Visits Requ ested Visits Authorized [id number] Closed 05/16/2021 05/16/2022 1 1 Encounter Details Date Type Department Care Team Description 10/09/2021 Office Visit Division of Nephrology Nabil, Chron ic Kidney Disease (CKD), Stage 3b Glomerular Filtration Rate (GFR) 30 To 44 (HCC) (Primary Dx); and Hypertension in [place], Hyperten nubia Essential Primary [place], [place] M.B.B.S. [address] [facility] [address] [place] [phone] Social History Tobacco Use Types Packs/Day Years [...] or relatives? How often do you attend hindu or Never 2021 yarsani services? Do you belong to any clubs or No 10/09/2021 organizations such as hindu groups, unions, fraternal or athletic groups, or [...] have completed or the highest Martin, MEd, ELECTRIC MOTOR CONTROLS ASSEMBLER, [place]) degree you have received? Sex Assigned at Date Recorded Male 05/21/2018 2:34 PM CDT documented as of this encounter Last Filed Vital Signs Vital Sign Reading Time Taken Comments Blood Pressure 128/64 10/09/2021 4:15 PM ACCOUNTING CONSULTANT Pulse 57 10/09/2021 4:15 PM ACCOUNTING CONSULTANT Temperature 37.3 ??C (99.1 ??F) 10/09/2021 3:28 PM ACCOUNTING CONSULTANT Respiratory Rate - - Oxygen Saturation - - Inhaled Oxygen Concentration - - Weight 97.3 kg (214 lb 8.1 oz) 10/09/2021 3:28 PM ACCOUNTING CONSULTANT Height 184.9 cm (6' 0.8) 10/09/2021 3:28 PM ACCOUNTING CONSULTANT Body Mass Index 28.46 10/09/2021 3:28 PM ACCOUNTING CONSULTANT documented in this encounter Progress Notes Melissa Ferrer M.B.B.S. - 10/09/2021 3:45 PM CST SUBJECTIVE REASON FOR VISIT Follow up of Chronic Kidney Disease HISTORY OF PRESENT ILLNESS Mr. Costa is a 76 y.o. male who returns for follow up. He had a baseline creatinine of 0.9-1.1 up until 2016. He had an acute kidney injury in January 2018 with a peak creatinine of 2.32 in the context of diarrhea when he was having pancreatitis. His creatinine added at 1.1-1.2 after that. He had multiple acute kidney injury between 2019 to 2020 during his hospitalization for heart failure. His creatinine has since then been in the 1.5-1.7 range. He has had 5 hospitalizations in the past 2 years for heart failure. In the setting of salt indiscretion. ?? He has had urinalysis that has shown proteinuria even as far back as 2012 which increased significantly in 2019 and was up to 2.2 g and has since improved in September 2020 down to 477 mg. He has had a longstanding history of diabetes going back to the 1990s with good control. His hemoglobin A1cs have been in the 7-8 range. 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 ?? His medical comorbidities otherwise significant for longstanding diabetes, hypertension, heart failure with preserved ejection fraction, hypothyroidism on levothyroxine therapy, pancreatitis recurrent in the setting of gallstone, asthma well controlled. ?? 03/2021 In January 2021 he had multiple changes to his medications done. He was started on torsemide 40 mg b.i.d. dosing, losartan 25 mg daily, metoprolol was decreased to 25 mg daily because he was bradycardic with heart rates down to low 40s. He states that since then his heart rates have improved. Blood pressures at home have been in the 140-150 systolic range. He has a nurse that comes home on a weekly basis to check his blood pressures. He was started on Invokana and he has not been able to obtain [facility]. he is now following a strict low-sodium diet. Hydrating himself well. 04/2021: Still working with the remote monitoring program for BP control he is now on jardiance. Recommended to stop afternoon dose of torsemide. 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 He was quite depressed with decreased appetite. He has been not following his blood sugars as closely out of frustration. A1c is in the 9-10 and today his BG wasin 440 which was after he had a chocolate covered donut. He did take his insulin after that. BP at home have been good in the 120s systolic. He expressed frustration with incontinence after BCG therapy. No edema. Will reduce torsemide to 20 mg daily and increase losartan to 50 mg daily. The following portions of the patient's history were reviewed and updated as appropriate: allergies,current medications, family history, medical history, social history, surgical history and problem list. REVIEW OF SYSTEMS Negative except as mentioned in the HPI OBJECTIVE BP 128/64 Pulse (!) 57 Temp 37.3 ??C Ht 184.9 cm Wt 97.3 kg BMI 28.46 kg/m?? PHYSICAL EXAMINATION Constitutional General: He is not in acute distress. Eyes General: No scleral icterus. Conjunctiva/sclera: Conjunctivae normal. Pulmonary Effort: Pulmonary effort is normal. Musculoskeletal Right lower leg: No edema. Left lower leg: No edema. Neurological Mental Status: He is alert and oriented to person, place, and time. Psychiatric Mood and Affect: Mood normal. Behavior: Behavior normal. Thought Content: Thought content normal. Judgment: Judgment normal. ASSESSMENT / PLAN 1. Chronic kidney disease stage IIIB likely in the setting of diabetic nephropathy, longstanding hypertensive disease and recurrent acute kidney injury 2. Hypertension 3. Heart failure with preserved ejection fraction 4. Diabetes 5. Recurrent pancreatitis, resolved 6. Bladder cancer non muscle invasive status post TURBT and BCG therapy His kidney function continues to be stable. His blood sugars though have been quite uncontrolled. Wehad a talk regarding controlling his blood sugars. He will be meeting with the diabetic specialist to discuss potentially using other modalities to be able to control his blood sugars. His most recent urinalysis does not show much of her proteinuria. And his blood pressures have been doing well as well. Since he has been having more incontinence since his BCG therapy have requested for him to cut back his torsemide to 20 mg once a day. He will let me know if he has any changes to his breathing. His volume status today looked quite euvolemic. His blood pressures were also under excellent control. With his elevated blood sugars possibly he is also having some degree of osmotic diuresis so we will cut back on his torsemide but increase the losartan to 50 mg once a day. Medications adjusted: - decrease torsemide to 20 mg once a day in morning. -increase losartan to 50 mg once a day Monitoring Plan: - Check BP and weight daily Follow up: -with labs and visit with me in 4 months Jose MoranB.S. UNTING CONSULTANT documented in this encounter Plan of Treatment Scheduled Orders Name Type Priority Associated Diagnoses Order S chedule Renal Function Panel Lab Routine Hypertension Essenti al Expected: 02/06/2022 Primary (Approximate), Chronic Kidney Disease Expir es: 01/07/2023 (CKD), Stage 3b Glomerular Filtration Rate (GFR) 30 To 44 (HCC) Magnesium Lab Routine Hypertension Essential Expec geovanny: 02/06/2022 Primary (Approximate), Chronic Kidney Disease Expir es: 10/09/2022 (CKD), Stage 3b Glomerular Filtration Rate (GFR) 30 To 44 (HCC) Uric Acid Lab Routine Hypertension Essential Expec geovanny: 02/06/2022 Primary (Approximate), Chronic Kidney Disease Expir es: 01/07/2023 (CKD), Stage 3b Glomerular Filtration Rate (GFR) 30 To 44 (HCC) Urinalysis with Lab Routine Hypertension Essential Ex pected: 02/06/2022 Microscopic: Urine, Primary (Approximate), Voided Chronic Kidney Disease Expir es: 01/07/2023 (CKD), Stage 3b Glomerular Filtration Rate (GFR) 30 To 44 (HCC) Albumin, Random, Urine Lab Routine Hypertension Essen tial Expected: 02/06/2022 Primary (Approximate), Chronic Kidney Disease Expir es: 01/07/2023 (CKD), Stage 3b Glomerular Filtration Rate (GFR) 30 To 44 (HCC) Scheduled Referrals Name Type Priority Associated Order Schedule Diagnoses Nephrology and Outpatient Referral Routine Expect ed: Hypertension office 02/07/20 22 visit (clinic) (Approximate) , Expires: 01/07/2023 documented as of this encounter Visit Diagnoses Diagnosis Chronic Kidney Disease (CKD), Stage 3b G lomerular Filtration Rate (GFR) 30 To 44 (HCC) - Primary Hypertension Essential Primary documented in this encounter Additional Health Concerns Assessment Noted Time PHQ-9 Depression Total Score: 18 04/28/2018 11:27 AM C DT documented as of this encounter Care Teams Silver Wrapper Relationship Specialty Start Date End Date Shayla Alford D.O. PCP - General Internal Medicine 05/22/20 [address] [place] [phone] documented as of this encounter
--- OUTSIDE RECORDS SUMMARY | 2022-05-21 11:16 | XMS_ITS | Encounter Summary ---
:1945 Author Organization [facility] Address [address] [place] [address] Care Team Providers Name Role Phone Shayla Alford D.O. Primary Care Provider [phone] Encounter Details Date Type Department Care Team Description 09/10/2021 Hospital Encounter Department of Cirilo Bernal Neoplasm Of Laboratory Medicine Pato Mims Bladder Lateral Wall in [place], [address] ([facility]) [address] [place] [phone] Social History Tobacco Use Types Packs/Day [...] or relatives? How often do you attend rastafari or Never 2021 christianity services? Do you belong to any clubs or No 10/09/2021 organizations such as rastafari groups, unions, fraternal or athletic groups, or [...] have completed or the highest Martin, MEd, COURSE DEVELOPER, [place]) degree you have received? Sex Assigned [...] (FREESTYLE SOFYA) times a day. Use to [facility] scan Sofya sensor 5 times daily and [...] PEN NEEDLE, DIABETIC Yani Fine 30 0 [facility] disposable needles. For use with Insulin Pens, 4 times daily SYRINGE-NEEDLE,INSULIN,0 0 .5 ML (INSULIN SYRINGE [facility]) traZODone (DESYREL) 100 Take 0.5 tablets (50 [...] Date/Time Associated Comments Diagnosis BACTERIAL CULTURE, Routine 09/10/2021 8:27 AM Malignant Neopla sm Results for this AEROBIC + SUSC, URINE CRM DEVELOPER Of Bladder Lateral procedure are in [place] ([facility]) the results section. URINALYSIS WITH Routine 09/10/2021 8:27 AM Malignant Neoplasm Results for this MICROSCOPIC CRM DEVELOPER Of Bladder Lateral procedure are in [place] ([facility]) the results section. documented in this encounter Results (ABNORMAL) Bacterial Culture, Aerobic + Susc, Urine (09/10/2021 8:27 AM CRM DEVELOPER) Analysis Performed At Patho logist Time Signature Urine Culture Mixed 09/11/2021 MKTO surekha. (A) 1:04 PM CRM DEVELOPER Specimen Anatomical Collection Method Collection Time Receive d Time (Source) Location / / Volume Laterality Urine (Urine, 09/10/2021 8:27 AM 09/10/20 21 3:35 Midstream) CRM DEVELOPER PM CRM DEVELOPER Comment: Specimen Source Site: Urine Mid stream Prasanna Bernal M.D. LAB MICROBIOLOGY - GENERAL O RDERABLES Performing Organization Address City/State/ZIP Code Phon e Number [facility]- [address] [place] [address] [place] [address] System in [place] [address] [facility] (ABNORMAL) Urinalysis with Microscopic: Urine, Midstream (09/10/2021 8:27 AM CRM DEVELOPER) Analysis Performed At [facility] Time Signature Source Urine, Urine, 09/10/2021 FB60 Midstream 8:44 AM CRM DEVELOPER Clarity Clear Clear 09/10/2021 FB60 8:58 AM CRM DEVELOPER Color Yellow 09/10/2021 FB60 8:58 AM CRM DEVELOPER Comment: ----REFERENCE VALUE---- Colorless Yellow Mitra Blood Small (A) Negative 09/10/2021 8:58 AM CRM DEVELOPER FB60 Nitrite Negative Negative 09/10/2021 8:58 AM CRM DEVELOPER FB60 Leukocyte Esterase Trace (A) Negative 09/10/2021 8:58 AM CS T FB60 Protein Negative mg/dL 09/10/2021 8:58 AM CRM DEVELOPER FB60 Comment: ----REFERENCE VALUE---- Negative Trace Glucose >=1000 (A) Negative mg/dL 09/10/2021 8:58 AM CRM DEVELOPER F B60 Ketones, QI(U) Negative Negative mg/dL 09/10/2021 8:[address] FB60 Bilirubin Negative Negative 09/10/2021 8:58 AM CRM DEVELOPER FB60 pH 5.5 5.0 - 8.0 09/10/2021 8:58 AM CRM DEVELOPER FB60 Specific [place] 1.015 1.001 - 1.035 09/10/2021 8:58 AM CRM DEVELOPER FB60 Urobilinogen 0.2 0.2 - 1.0 mg/dL 09/10/2021 8:58 AM CS T FB60 White Blood Cells 4-10 (A) /hpf 09/10/2021 9:00 AM CRM DEVELOPER FB60 Comment: ----REFERENCE VALUE---- Males: 0-3 Females: 0-10 Unknown: 0-10 Red Blood Cells None Seen 0 - 2 /hpf 09/10/2021 9:00 AM CRM DEVELOPER FB60 Specimen Anatomical Collection Method Collection Time Receive d Time (Source) Location / / Volume Laterality Urine (Urine, 09/10/2021 8:27 AM 09/10/20 8:44 Midstream) CRM DEVELOPER AM CRM DEVELOPER Prasanna Bernal M.D. LAB URINE ORDERABLES Performing Organization Address City/State/ZIP Code Phon e Number [facility]- [address] [place] [address] [facility] [address] [place] [address] System in [place] [address] documented in this encounter Visit Diagnoses Diagnosis 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 (HCC) documented in this encounter Additional Health Concerns Assessment Noted Time PHQ-9 Depression Total Score: 18 04/28/2018 11:27 AM C DT documented as of this encounter Care Teams Genetics Physician Relationship Specialty Start Date End Date Shayla Alford D.O. PCP - General Internal Medicine 05/22/20 [address] [place] [phone] documented as of this encounter
--- OUTSIDE RECORDS SUMMARY | 2022-05-21 11:16 | XMS_ITS | Encounter Summary ---
:1945 Author Organization [facility] Address [address] [place] [address] Care Team Providers Name Role Phone Shayla Alford D.O. Primary Care Provider [phone] Reason for Visit Appointment Request (Routine) - Closed Specialty Diagnoses / Procedures Referred By Contact Refer red To Contact Urology Referral ID Status Reason Start Date Expiration Date Visits Requ ested Visits Authorized [id number] Closed 07/23/2021 07/23/2022 1 1 Encounter Details Date Type Department Care Team Description 09/19/2021 Nurse Only Department of Urology in [facility] Lea R.NOdem, [place] [address] [place] [phone] Social History Tobacco Use Types Packs/Day Years [...] do you attend mormon or Never 2021 synagogue services? Do you [...] have completed or the highest Martin, MEd, MID TEACHER, [place]) degree you have received? Sex Assigned at Date Recorded Male 05/21/2018 2:34 PM CDT documented as of this encounter Progress Notes Lea Morin, R.N. - 09/19/2021 9:00 AM CST Bladder Instillation 1. This is number 6 of 6. 2. Prior to the procedure [...] instructions 11. Next treatment/follow up scheduled for: Dr. Bernal' visit Jonnathan Costa here for BCG. no new [...] Patient will return as scheduled for the cystoscopy. Lea Morin R.N. 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 HAZARDOUS - Handle with care. Use with CSTD Bladder Instillation Kit. documented in this encounter Additional Health Concerns Assessment Noted Time PHQ-9 Depression Total Score: 18 04/28/2018 11:27 AM C DT documented as of this encounter Care Teams Research Physiologist Relationship Specialty Start Date End Date Shayla Alford D.O. PCP - General Internal Medicine 05/22/[address] [phone] documented as of this encounter
--- OUTSIDE RECORDS SUMMARY | 2022-05-21 11:17 | XMS_ITS | Encounter Summary ---
:1945 Author Organization [facility] Address [address] [place] [address] Care Team Providers Name Role Phone Shayla Alford D.O. Primary Care Provider [phone] Reason for Visit Reason Comments Nurse Visit BCG Bladder Cancer Appointment Request (Routine) - Closed Specialty Diagnoses / Procedures Referred By Contact Refer red To Contact Urology Referral ID Status Reason Start Date Expiration Date Visits Requ ested Visits Authorized [id number] Closed 07/23/2021 07/23/2022 1 1 Encounter Details Date Type Department Care Team Description 08/22/2021 Nurse Only Department of Urology Lea Morin Nu rse Visit (BCG); in [place] R.N. Bladder Cancer [address] [place] [address] [place], [place] [phone] Social History Tobacco Use Types Packs/Day Years [...] or relatives? How often do you attend congregational or Never 2021 restoration services? Do you belong to any clubs or No 10/09/2021 organizations such as congregational groups, unions, fraternal or athletic groups, or [...] have completed or the highest Martin, MEd, FISH ROD MAKER, [place]) degree you have received? Sex Assigned at Date Recorded Male 05/21/2018 2:34 PM CDT documented as of this encounter Last Filed Vital Signs Vital Sign Reading Time Taken Comments Blood Pressure - - Pulse - - Temperature 36.6 ??C (97.8 ??F) 08/22/2021 10:07 AM SECURITIES SETTLEMENT PROCESSOR Respiratory Rate - - Oxygen Saturation - - Inhaled Oxygen Concentration - - Weight - - Height - - Body Mass Index - - documented in this encounter Progress Notes Lea Morin, R.N. - 08/22/2021 9:30 AM CST Bladder Instillation 1. This is number 2 of 6. 2. Prior to the procedure [...] instructions 11. Next treatment/follow up scheduled for: 08/29/21 Jonnathan Costa here for BCG. no new [...] the next BCG treatment. Lea Morin R.N. 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 HAZARDOUS - Handle with care. Use with CSTD Bladder Instillation Kit. documented in this encounter Additional Health Concerns Assessment Noted Time PHQ-9 Depression Total Score: 18 04/28/2018 11:27 AM C DT documented as of this encounter Care Teams Wrecking Mechanic Relationship Specialty Start Date End Date Shayla Alford D.O. PCP - General Internal Medicine 05/22/[address] [phone] documented as of this encounter
--- OUTSIDE RECORDS SUMMARY | 2022-05-21 11:17 | XMS_ITS | Encounter Summary ---
:1945 Author Organization [facility] Address [address] [place] [address] Care Team Providers Name Role Phone Shayla Alford D.O. Primary Care Provider [phone] Reason for Visit Reason Comments Gouty arthritis Encounter Details Date Type Department Care Team Description 09/02/2021 - Emergency [facility] Gout Arthritis (Primary 09/03/[address] Dx) [place] [address] Social History Tobacco Use Types Packs/Day Years [...] many times do you More than three ujnito es a week 10/09/2021 talk on the phone with family, friends, or neighbors? How often do you get together with friends Once a week 10/09/2021 or relatives? How often do you attend yazidism or Never 2021 samaritan services? Do you belong to any clubs or No 10/09/2021 organizations such as yazidism groups, unions, fraternal or athletic groups, or [...] have completed or the highest Martin, MEd, EDUCATION DIRECTOR, [place]) degree you have received? Sex Assigned [...] (FREESTYLE SOFYA) times a day. Use to [facility] scan Sofya sensor 5 times daily and as needed. E11.65 Lifetime use. flash glucose sensor 1 each every 14 6 kit 3 03/02/2021 (FREESTYLE SOFYA) kit (fourteen) days. Change sensor every 14 days E11.65 E11.40 Lifetime use glucose 4 gram chewable CHEW FOUR TABLETS BY 0 tablet MOUTH NEEDED FOR LOW BLOOD SUGAR indomethacin (INDOCIN) Take 25 mg by mouth 0 12/11/2020 25 mg capsule 3 (three) times a [...] PEN NEEDLE, DIABETIC Yani Fine 30 0 [facility] disposable needles. For use with Insulin Pens, 4 times daily SYRINGE-NEEDLE,INSULIN,0 0 .5 ML (INSULIN SYRINGE [facility]) traZODone (DESYREL) 100 Take 0.5 tablets (50 [...] as of this encounter Visit Diagnoses Diagnosis Gout Arthritis - Primary documented in this encounter Additional Health Concerns Assessment Noted Time PHQ-9 Depression Total Score: 18 04/28/2018 11:27 AM C DT documented as of this encounter Care Teams Technical Trainer Relationship Specialty Start Date End Date Shayla Alford D.O. PCP - General Internal Medicine 05/22/[address] [place] [phone] documented as of this encounter
--- OUTSIDE RECORDS SUMMARY | 2022-05-21 11:17 | XMS_ITS | Encounter Summary ---
:1945 Author Organization [facility] Address [address] [place] [address] Care Team Providers Name Role Phone Shayla Alford D.O. Primary Care Provider [phone] Reason for Visit Reason Onset Date Comments Complex Care Coordination 07/29/2021June Esha santillan Encounter Details Date Type Department Care Team Description 07/29/2021 Remote Monitoring Remote Patient LesterSushma Complex Care Monitoring [address] [facility] Coordination (June [facility] [address] [place], [place] Billing ) [address] [facility] [address] [place], [place] [phone] (Work) Social History Tobacco Use Types Packs/Day Years [...] or relatives? How often do you attend hinduism or Never 2021 amish services? Do you belong to any clubs or No 10/09/2021 organizations such as hinduism groups, unions, fraternal or athletic groups, or [...] have completed or the highest Martin, MEd, SALES RECORD CLERK, [place]) degree you have received? Sex Assigned at Date Recorded Male 05/21/2018 2:34 PM CDT documented as of this encounter Plan of Treatment Not on filedocumented as of this encounter Visit Diagnoses Diagnosis Chronic Systolic (Congestive) Heart Fail ure (HCC) Chronic Kidney Disease (CKD), Stage 3b G lomerular Filtration Rate (GFR) 30 To 44 (HCC) documented in this encounter Additional Health Concerns Assessment Noted Time PHQ-9 Depression Total Score: 18 04/28/2018 11:27 AM C DT documented as of this encounter Care Teams Supervisor Laboratory Animal Facility Relationship Specialty Start Date End Date Shayla Alford D.O. PCP - General Internal Medicine 05/22/[address] [phone] documented as of this encounter
--- OUTSIDE RECORDS SUMMARY | 2022-05-21 11:17 | XMS_ITS | Encounter Summary ---
:1945 Author Organization [facility] Address [address] [place] [address] Care Team Providers Name Role Phone Shayla Alford D.O. Primary Care Provider [phone] Reason for Visit Reason Comments Nurse Visit Bladder Cancer Appointment Request (Routine) - Closed Specialty Diagnoses / Procedures Referred By Contact Refer red To Contact Urology Referral ID Status Reason Start Date Expiration Date Visits Requ ested Visits Authorized [id number] Closed 07/23/2021 07/23/2022 1 1 Encounter Details Date Type Department Care Team Description 08/15/2021 Nurse Only Department of Urology Lea Morin Nu rse Visit; Bladder in Alicia Dixonkarissa will R.N. Cancer [address] [place] [address] [place], [place] [phone] Social History Tobacco Use Types Packs/Day Years [...] do you attend orthodox or Never 2021 islam services? Do you belong to any clubs [...] have completed or the highest Martin, MEd, FIRST AID INSTRUCTOR, [place]) degree you have received? Sex Assigned at Date Recorded Male 05/21/2018 2:34 PM CDT documented as of this encounter Last Filed Vital Signs Vital Sign Reading Time Taken Comments Blood Pressure - - Pulse 48 08/15/2021 8:51 AM APPLE PICKER Temperature 36.6 ??C (97.8 ??F) 08/15/2021 8:51 AM APPLE PICKER Respiratory Rate - - Oxygen Saturation 98% 08/15/2021 8:51 AM APPLE PICKER room ai r Inhaled Oxygen Concentration - - Weight - - Height - - Body Mass Index - - documented in this encounter Progress Notes Lea Morin, R.N. - 08/15/2021 9:00 AM CST Bladder Instillation 1. This is number 1 of 6. 2. Prior to the procedure [...] instructions 11. Next treatment/follow up scheduled for: 08/22/21 Lea Morin R.N. 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 HAZARDOUS - Handle with care. Use with CSTD Bladder Instillation Kit. documented in this encounter Additional Health Concerns Assessment Noted Time PHQ-9 Depression Total Score: 18 04/28/2018 11:27 AM C DT documented as of this encounter Care Teams Customs Agent Relationship Specialty Start Date End Date Shayla Alford D.O. PCP - General Internal Medicine 05/22/[address] [phone] documented as of this encounter
--- OUTSIDE RECORDS SUMMARY | 2022-05-21 11:17 | XMS_ITS | Encounter Summary ---
:1945 Author Organization [facility] Address [address] [place] [address] Care Team Providers Name Role Phone Shayla Alford D.OMauro Primary Care Provider [phone] Encounter Details Date Type Department Care Team Description 07/30/2021 Hospital Encounter Department of Alexys Diabete s Mellitus Type 2 Hyperglycemia (HCC); Laboratory Medicine Shayla queen Hyperten sion Essential Primary in [place], D.[facility] [place] [facility] [address] [place] [phone] Social History Tobacco Use Types Packs/Day [...] do you attend pentecostal or Never 2021 restorationist services? Do you belong to any clubs [...] have completed or the highest Martin, MEd, PHARMACY TECHNOLOGY INSTRUCTOR, [place]) degree you have received? Sex [...] (FREESTYLE SOFYA) times a day. Use to [facility] scan Sofya sensor 5 times daily and as needed. E11.65 Lifetime use. flash glucose sensor 1 each every 14 6 kit 3 03/02/2021 (FREESTYLE SOFYA) kit (fourteen) days. Change sensor every 14 days E11.65 E11.40 Lifetime use glucose 4 gram chewable CHEW FOUR TABLETS BY 0 tablet MOUTH NEEDED FOR LOW BLOOD SUGAR insulin aspart U-100 Inject 11 Units 0 [...] PEN NEEDLE, DIABETIC Yani Fine 30 0 [facility] disposable needles. For use with Insulin Pens, 4 times daily SYRINGE-NEEDLE,INSULIN,0 0 .5 ML (INSULIN SYRINGE [facility]) traZODone (DESYREL) 100 Take 0.5 tablets (50 30 tablet 1 07/10/2022 mg tablet mg total) by mouth at bedtime as needed for sleep. budesonide-formoteroL Inhale 2 puffs daily 0 10/201911/19/2021 [...] 1,000 mg 24 hr tablet mouth daily. torsemide (DEMADEX) 20 Take 2 tablets (40 180 tablet 3 05/1610/09/2021 mg tabletIndications: mg total) by mouth Hypertension Essential every morning before Primary breakfast. documented as of this encounter Plan of Treatment Not on filedocumented as of this encounter Procedures Procedure Name Priority Date/Time Associated Diagnosis Comme nts HEMOGLOBIN A1C, B Routine 07/30/2021 9:50 AM Diabetes Mellitus Type Results for this CDT 2 Hyperglycemia (HCC) proced ure are in the results section. BASIC METABOLIC Routine 07/30/2021 9:50 AM Hypertension Essent ial Results for this PANEL, S/P CDT Primary procedure are i n the results section. documented in this encounter Results (ABNORMAL) Basic Metabolic Panel (07/30/2021 9:50 AM CDT) Analysis Performed At Patho logist Time Signature Potassium, P 4.4 3.6 - 5.2 07/30/2021 [facility] mmol/L 10:24 AM CDT Sodium, P 139 135 - 145 07/30/2021 [facility] mmol/L 10:24 AM CDT Chloride, P 105 98 - 107 07/30/2021 [facility] mmol/L 10:24 AM CDT Bicarbonate, P 22 22 - 29 07/30/2021 [facility] mmol/L 10:24 AM CDT Anion Gap, P 12 7 - 15 07/30/2021 [facility] 10:24 AM CDT BUN (Blood Urea 48 (H) 8 - 24 07/30/2021 [facility] Nitrogen), P mg/dL 10:24 AM CDT Creatinine 1.98 (H) 0.74 - 07/30/2021 [facility] 1.35 mg/dL 10:24 AM CDT eGFR-Black/Afri 36 (L) >=60 07/30/2021 [facility] can Algerian mL/min/BSA 10:24 AM CDT Comment: ----ADDITIONAL INFORMATION---- Estimated GFR calculated using the 2009 CKD_EPI creatinine equation. eGFR Non-Black/ 31 (L) >=60 mL/min/BSA 07/30/2021 10:24 AM CDT [facility] [place]ian Comment: ----ADDITIONAL INFORMATION---- Estimated GFR calculated using the 2009 CKD_EPI creatinine equation. Calcium, Total, P 8.6 (L) 8.8 - 10.2 mg/dL 07/30/2021 10:2 4 AM CDT [facility] Glucose, P 258 (H) 70 - 140 mg/dL 07/30/2021 10:24 AM CDT [facility] Specimen Anatomical Collection Method Collection Time Receive d Time (Source) Location / / Volume Laterality Blood (Blood, 07/30/2021 9:50 AM 07/30/20 9:51 Venous) CDT AM CDT Shayla Alford D.O. LAB BLOOD ADD-ON Performing Organization Address City/State/ZIP Code Phon e Number [facility] [address] [place] [address] [place] [address] System in [place] [address] [facility] (ABNORMAL) Hemoglobin A1c (07/30/2021 9:50 AM CDT) P athologist Signature Hemoglobin A1c, 9.3 (H) 4.2 - 5.6 07/30/2021 [facility] B % 10:05 AM CDT Comment: Hemoglobin A1c values greater than or eq ual to 6.5 percent are diagnostic for diabetes mellitus. ?? Diagnosis should be confirmed by repeat testing. ??In diabet ic patients, HbA1c goals should be discussed with healthcar e provider. Specimen Anatomical Collection Method Collection Time Receive d Time (Source) Location / / Volume Laterality Blood (Blood, 07/30/2021 9:50 AM 07/30/20 9:51 Venous) CDT AM CDT Shayla Alford D.O. LAB BLOOD ADD-ON Performing Organization Address City/State/ZIP Code Phon e Number [facility]- [address] [place] [address] [facility] [place] [address] System in [place] [address] documented in this encounter Visit Diagnoses Diagnosis Diabetes Mellitus Type 2 Hyperglycemia ( HCC) Hypertension Essential Primary documented in this encounter Additional Health Concerns Assessment Noted Time PHQ-9 Depression Total Score: 18 04/28/2018 11:27 AM C DT documented as of this encounter Care Teams Telecom Field Technician Relationship Specialty Start Date End Date Shayla Alford D.O. PCP - General Internal Medicine 05/22/[address] [place] [address] documented as of this encounter
--- OUTSIDE RECORDS SUMMARY | 2022-05-21 11:17 | XMS_ITS | Encounter Summary ---
:1945 Author Organization [facility] Address [address] [place] [address] Care Team Providers Name Role Phone Shayla Alford D.O. Primary Care Provider [phone] Encounter Details Date Type Department Care Team Description 08/13/2021 Hospital Encounter Department of Cirilo Bernal Neoplasm Of Laboratory Medicine Pato Mims Bladder Lateral Wall in [place], [address] ([facility]) [address] [place] [phone] Social History Tobacco Use Types Packs/Day [...] or relatives? How often do you attend jainism or Never 2021 roman catholic services? Do you belong to any clubs or No 10/09/2021 organizations such as jainism groups, unions, fraternal or athletic groups, or [...] place to sleep or slept in a prison (including now)? Education Answer Date Recorded What is the highest level of school Master's degree (e.g., [place], [place], 03/23/2019 you have completed or the highest Martin, MEd, DIRECTOR SCHOOL OF NURSING, [place]) degree you have received? Sex Assigned [...] (FREESTYLE SOFYA) times a day. Use to [facility] scan Sofya sensor 5 times daily and [...] PEN NEEDLE, DIABETIC Yani Fine 30 0 [facility] disposable needles. For use with Insulin Pens, 4 times daily SYRINGE-NEEDLE,INSULIN,0 0 .5 ML (INSULIN SYRINGE [facility]) traZODone (DESYREL) 100 Take 0.5 tablets (50 30 tablet 1 07/10/2022 mg tablet mg total) by mouth at bedtime as needed for sleep. budesonide-formoteroL Inhale 2 puffs daily 0 10/10/201911/19/2021 (SYMBICORT) 160-4.5 as needed. mcg/actuation inhaler gemfibroziL (LOPID) 600 Take 1 tablet by 0 200811/06/2021 mg tablet mouth. insulin glargine (Lantus Inject 30 Units 0 202011/29/2021 U-100 Insulin) 100 under the skin at unit/mL bedtime. injectionIndications: Diabetes Mellitus Type 2 Hyperglycemia ([facility]) lisinopriL Take 1 tablet by 0 11/15/2008 02/08/20 22 (PRINIVIL,ZESTRIL) 10 mg mouth daily. tablet [...] Date/Time Associated Comments Diagnosis BACTERIAL CULTURE, Routine 08/13/2021 8:03 AM Malignant Neopla sm Results for this AEROBIC + SUSC, URINE CEMENT FINISHER Of Bladder Lateral procedure are in Wall ([facility]) the results section. URINALYSIS WITH Routine 08/13/2021 8:03 AM Malignant Neoplasm Results for this MICROSCOPIC CEMENT FINISHER Of Bladder Lateral procedure are in Wall ([facility]) the results section. documented in this encounter Results (ABNORMAL) Bacterial Culture, Aerobic + Susc, Urine (08/13/2021 8:03 AM CEMENT FINISHER) Analysis Performed At [facility] Urine Culture Mixed 08/14/2021 [facility] surekha. (A) 9:53 AM CEMENT FINISHER Specimen Anatomical Collection Method Collection Time Receive d Time (Source) Location / / Volume Laterality Urine (Urine, 08/13/2021 8:03 AM 08/13/20 21 2:11 Midstream) CEMENT FINISHER PM CEMENT FINISHER Comment: Specimen Source Site: Urine Prasanna Bernal M.D. LAB MICROBIOLOGY - GENERAL O RDERABLES Performing Organization Address City/State/ZIP Code Phon e Number [facility]- [address] [place] [address] [place] [address] System [address] (ABNORMAL) Urinalysis with Microscopic: Urine, Midstream (08/13/2021 8:03 AM CEMENT FINISHER) Analysis Performed At [facility] Signature Source Urine, Urine, 08/13/2021 FB60 Midstream 8:31 AM CEMENT FINISHER Clarity Clear Clear 08/13/2021 FB60 8:57 AM CEMENT FINISHER Color Yellow 08/13/2021 FB60 8:57 AM CEMENT FINISHER Comment: ----REFERENCE VALUE---- Colorless Yellow Mitra Blood Small (A) Negative 08/13/2021 8:57 AM CEMENT FINISHER FB60 Nitrite Negative Negative 08/13/2021 8:57 AM CEMENT FINISHER FB60 Leukocyte Esterase Trace (A) Negative 08/13/2021 8:57 AM CS T FB60 Protein Trace mg/dL 08/13/2021 8:57 AM CEMENT FINISHER FB60 Comment: ----REFERENCE VALUE---- Negative Trace Glucose >=1000 (A) Negative mg/dL 08/13/2021 8:57 AM CEMENT FINISHER F B60 Ketones, QI(U) Negative Negative mg/dL 08/13/2021 8:[address] FB60 Bilirubin Negative Negative 08/13/2021 8:57 AM CEMENT FINISHER FB60 pH 5.5 5.0 - 8.0 08/13/2021 8:57 AM CEMENT FINISHER FB60 Specific Conger 1.015 1.001 - 1.035 08/13/2021 8:57 AM CEMENT FINISHER FB60 Urobilinogen 0.2 0.2 - 1.0 mg/dL 08/13/2021 8:57 AM CS T FB60 White Blood Cells Occ-3 /hpf 08/13/2021 8:57 AM CEMENT FINISHER FB60 Comment: ----REFERENCE VALUE---- Males: 0-3 Females: 0-10 Unknown: 0-10 Red Blood Cells None Seen 0 - 2 /hpf 08/13/2021 8:57 AM CEMENT FINISHER FB60 Squamous Cells Occ-3 /hpf 08/13/2021 8:57 AM CEMENT FINISHER FB 60 Specimen Anatomical Collection Method Collection Time Receive d Time (Source) Location / / Volume Laterality Urine (Urine, 08/13/2021 8:03 AM 08/13/20 8:31 Midstream) CEMENT FINISHER AM CEMENT FINISHER Prasanna Bernal M.D. LAB URINE ORDERABLES Performing Organization Address City/State/ZIP Code Phon e Number [facility]- [address] [place] [address] [facility] [address] [place] [address] System in [place] [address] documented in this encounter Visit Diagnoses Diagnosis 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 (HCC) documented in this encounter Additional Health Concerns Assessment Noted Time PHQ-9 Depression Total Score: 18 04/28/2018 11:27 AM C DT documented as of this encounter Care Teams Costume Draper Relationship Specialty Start Date End Date Shayla Alford D.O. PCP - General Internal Medicine 05/22/[address] [phone] documented as of this encounter
--- OUTSIDE RECORDS SUMMARY | 2022-05-21 11:17 | XMS_ITS | Encounter Summary ---
:1945 Author Organization [facility] Address [address] [place] [address] Care Team Providers Name Role Phone Shayla Alford D.O. Primary Care Provider [phone] Encounter Details Date Type Department Care Team Description 08/27/2021 Hospital Encounter Department of Cirilo Bernal Neoplasm Of Laboratory Medicine Pato Mims Bladder Lateral Wall in [place], [address] ([facility]) [address] [place] [phone] Social History Tobacco Use Types Packs/Day [...] or relatives? How often do you attend adventism or Never 2021 lutheran services? Do you belong to any clubs or No 10/09/2021 organizations such as adventism groups, unions, fraternal or athletic groups, or [...] have completed or the highest Martin, MEd, EX CHEF, CAYDEN) degree you have received? Sex Assigned [...] (FREESTYLE SOFYA) times a day. Use to [facility] scan Sofya sensor 5 times daily and [...] PEN NEEDLE, DIABETIC Yani Fine 30 0 [facility] disposable needles. For use with Insulin Pens, 4 times daily SYRINGE-NEEDLE,INSULIN,0 0 .5 ML (INSULIN SYRINGE [facility]) traZODone (DESYREL) 100 [...] bedtime. injectionIndications: Diabetes Mellitus Type 2 Hyperglycemia ([facility]) lisinopriL Take 1 tablet by 0 11/15/2008 [...] Date/Time Associated Comments Diagnosis BACTERIAL CULTURE, Routine 08/27/2021 8:25 AM Malignant Neopla sm Results for this AEROBIC + SUSC, URINE APPLICATION SYSTEMS ENGINEER Of Bladder Lateral procedure are in Wall ([facility]) the results section. URINALYSIS WITH Routine 08/27/2021 12:04 Malignant Neoplasm Re sults for this MICROSCOPIC AM APPLICATION SYSTEMS ENGINEER Of Bladder Lateral procedure are in Wall ([facility]) the results section. documented in this encounter Results (ABNORMAL) Bacterial Culture, Aerobic + Susc, Urine (08/27/2021 8:25 AM APPLICATION SYSTEMS ENGINEER) Analysis Performed At [facility] Time Signature Urine Culture Mixed 08/28/2021 [facility] surekha. (A) 10:47 AM APPLICATION SYSTEMS ENGINEER Specimen Anatomical Collection Method Collection Time Receive d Time (Source) Location / / Volume Laterality Urine (Urine, 08/27/2021 8:25 AM 08/27/20 21 3:01 Midstream) APPLICATION SYSTEMS ENGINEER PM APPLICATION SYSTEMS ENGINEER Comment: Specimen Source Site: Urine Prasanna eBrnal M.D. LAB MICROBIOLOGY - GENERAL O RDERABLES Performing Organization Address City/State/ZIP Code Phon e Number [facility] [address] [place] [id number] [place] [address] (ABNORMAL) Urinalysis with Microscopic: Urine, Midstream (08/27/2021 12:04 AM APPLICATION SYSTEMS ENGINEER) Analysis Performed At [facility] Time Signature Source Urine, Urine, 08/27/2021 FB60 Midstream 8:49 AM APPLICATION SYSTEMS ENGINEER Clarity Clear Clear 08/27/2021 FB60 9:13 AM APPLICATION SYSTEMS ENGINEER Color Yellow 08/27/2021 FB60 9:13 AM APPLICATION SYSTEMS ENGINEER Comment: ----REFERENCE VALUE---- Colorless Yellow Mitra Blood Trace (A) Negative 08/27/2021 9:13 AM APPLICATION SYSTEMS ENGINEER FB60 Nitrite Negative Negative 08/27/2021 9:13 AM APPLICATION SYSTEMS ENGINEER FB60 Leukocyte Esterase Small (A) Negative 08/27/2021 9:13 AM CS T FB60 Protein 30 (A) mg/dL 08/27/2021 9:13 AM APPLICATION SYSTEMS ENGINEER FB60 Comment: ----REFERENCE VALUE---- Negative Trace Glucose >=1000 (A) Negative mg/dL 08/27/2021 9:13 AM APPLICATION SYSTEMS ENGINEER F B60 Ketones, QI(U) Negative Negative mg/dL 08/27/2021 9:[address] FB60 Bilirubin Negative Negative 08/27/2021 9:13 AM APPLICATION SYSTEMS ENGINEER FB60 pH 5.5 5.0 - 8.0 08/27/2021 9:13 AM APPLICATION SYSTEMS ENGINEER FB60 Specific [place] 1.015 1.001 - 1.035 08/27/2021 9:13 AM APPLICATION SYSTEMS ENGINEER FB60 Urobilinogen 0.2 0.2 - 1.0 mg/dL 08/27/2021 9:13 AM CS T FB60 White Blood Cells 4-10 (A) /hpf 08/27/2021 9:13 AM APPLICATION SYSTEMS ENGINEER FB60 Comment: ----REFERENCE VALUE---- Males: 0-3 Females: 0-10 Unknown: 0-10 Red Blood Cells Occ-2 0 - 2 /hpf 08/27/2021 9:13 AM APPLICATION SYSTEMS ENGINEER FB60 Squamous Cells 4-10 /hpf 08/27/2021 9:13 AM APPLICATION SYSTEMS ENGINEER FB 60 Specimen Anatomical Collection Method Collection Time Receive d Time (Source) Location / / Volume Laterality Urine (Urine, 08/27/2021 12:04 08/27/2021 8:49 Midstream) AM APPLICATION SYSTEMS ENGINEER AM APPLICATION SYSTEMS ENGINEER Prasanna Bernal M.D. LAB URINE ORDERABLES Performing Organization Address City/State/ZIP Code Phon e Number 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 PCP - General Internal Medicine 05/22/[address] [phone] documented as of this encounter
--- OUTSIDE RECORDS SUMMARY | 2022-05-21 11:17 | XMS_ITS | Encounter Summary ---
:1945 Author Organization [facility] Address [address] [place] [address] Care Team Providers Name Role Phone Shayla Alford D.O. Primary Care Provider [phone] Encounter Details Date Type Department Care Team Description 07/25/2021 Orders Only [facility] PCP [facility] Sa neno Espinal M.D. [address] [place], [place] [phone] (Wo rk) Social History Tobacco Use Types [...] do you attend voodoo or Never 2021 gnosticism services? Do you belong to any clubs [...] you have completed or the highest Martin, Sirena, RETIREMENT [employer], CAYDEN) degree you have received? Sex Assigned at Date Recorded Male 05/21/2018 2:34 PM CDT documented as of this encounter Plan of Treatment Not on filedocumented as of this encounter Visit Diagnoses Not on filedocumented in this encounter Additional Health Concerns Assessment Noted Time PHQ-9 Depression Total Score: 18 04/28/2018 11:27 AM C DT documented as of this encounter Care Teams Veterinary Poultry Inspector Relationship Specialty Start Date End Date Shayla Alford D.O. PCP - General Internal Medicine 05/22/[address] [phone] documented as of this encounter
--- OUTSIDE RECORDS SUMMARY | 2022-05-21 11:17 | XMS_ITS | Encounter Summary ---
:1945 Author Organization [facility] Address [address] [place] [address] Care Team Providers Name Role Phone Shayla Alford D.O. Primary Care Provider [phone] Reason for Referral Outpatient (Routine) - Closed Specialty Diagnoses / Procedures Referred By Contact Refer red To Contact [facility] Internal ARMAAN Alford SE, D.O. [address] [place] [phone] Referral ID Status Reason Start Date Expiration Date Visits Requ ested Visits Authorized [id number] Closed 07/31/2021 07/31/2022 1 1 Scheduling Instructions Please schedule one hour to address preo p colonoscopy , diabetes , bladder cancer , and asthma Reason for Visit Reason Comments Heart Failure CKD, Diabetes Mellitus Outpatient (Routine) - Closed Specialty Diagnoses / Procedures Referred By Contact Refer red To Contact [facility] Internal ARMAAN Alford SE, D.O. [address] [place] [phone] Referral ID Status Reason Start Date Expiration Date Visits Requ ested Visits Authorized [id number] Closed 06/19/2021 06/19/2022 1 1 Encounter Details Date Type Department Care Team Description 07/31/2021 Office Visit Department of Internal Selvin Alford ypertension Essential Primary (Primary Dx); [place] 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 How often do you attend druze or Never 2021 hinduism services? Do you belong to any clubs or No 10/09/2021 organizations such as druze groups, unions, fraternal or athletic groups, or [...] place to sleep or slept in a group home (including now)? Education Answer Date Recorded What is the highest level of school Master's degree (e.g., Neto Arias MS, 03/23/2019 you have completed or the highest Martin, MEd, INSTRUCTOR NURSE, CAYDEN) degree you have received? Sex Assigned at Date Recorded Male 05/21/2018 2:34 PM CDT documented as of this encounter Last Filed Vital Signs Vital Sign Reading Time Taken Comments Blood Pressure 128/62 07/31/2021 11:11 AM CDT Pulse 52 07/31/2021 11:11 AM CDT Temperature 36.3 ??C (97.3 ??F) 07/31/2021 11:11 AM CDT Respiratory Rate 16 07/31/2021 11:11 AM CDT Oxygen Saturation 98% 07/31/2021 11:11 AM CDT Inhaled Oxygen Concentration - - Weight 99.7 kg (219 lb 12.8 oz) 07/31/2021 11:11 AM CDT Height 190 cm (6' 2.8) 07/31/2021 11:11 AM CDT Body Mass Index 27.62 07/31/2021 11:11 AM CDT documented in this encounter Progress Notes Shayla Alford D.O. - 07/31/2021 11:30 AM CDT SUBJECTIVE CHIEF COMPLAINT / REASON FOR VISIT Jonnathan Costa is a 76 y.o. male who presents for evaluation of Heart Failure (CKD, ) and Diabetes Mellitus. HISTORY OF PRESENT ILLNESS Jonnathan Costa is a very pleasant 75-year-old male with past medical history significant for type 2 diabetes, hypertension, hyperlipidemia, congestive heart failure presents today to follow-up on his chronic medical conditions. In regards to type 2 diabetes, the patient states that his blood sugar levels have improved. Unfortunately, he forgot to bring his meter with him today. 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 He states that his glucose this morning was 150. At bedtime it is in the low 200s. We discussed dietary changes exercise and provided counseling. The patient has changed his lifestyle, and has been able to lose some weight, he is limiting sugar and salt intake. He was congratulated on his improvement. He did have a hard few weeks with his cancer diagnosis and had more cravings and less discipline with his diet due to that stress . His A1C therefore didn't change and is still 9.3. I encouraged him to continue with his efforts. He will continue on his current medication regiment to include 25 mg of Jardiance, 10-30 units subcu 3 times daily with sliding scale of insulin NovoLog. And 33 units of Lantus. He denies any significant lows, no shortness of breath or chest pain. His blood pressure is within goal today 128/69. He appears to be volume stable with no sign of decompensation or heartfailure. His dry weight is 98 kilos. His weight today is 99 kg but he denies any new dyspnea symptoms. No sign of overload on exam He will continue on his regiment of torsemide 40 mg every morning, metoprolol 25 mg daily, as well as 25 mg of losartan. He is on statin therapy with Lipitor 80 mg daily. The patient has a scheduled trip to [address] [place] [address]. We discussed the importance of following his current diet which is heart healthy diabetic diet even when he goes on the trip. Avoid eating out if possible. Limiting salt and trans fat consumption. In regards to his CKD stage IIIB, this is likely secondary to his longstanding diabetic nephropathy and hypertension. He does follow with Nephrology. His next appointment is scheduled for August.The patient is due for his preventive health maintenance colonoscopy, we discussed rechecking A1c inif he had is below 9, we can proceed with a preop evaluation when I see him in 1 month. He denies any melena hematochezia or new symptoms. The following portions of the patient's history were reviewed and updated as appropriate: allergies,current medications, family history, medical history, social history, surgical history and problem list. REVIEW OF SYSTEMS A ten point ROS is otherwise negative OBJECTIVE BP 128/62 (BP Location: Right arm, Patient Position: Sitting, Cuff Size: Regular) Pulse (!) 52 Temp 36.3 ??C (Temporal) Resp 16 Ht 190 cm Wt 99.7 kg SpO2 98% BMI 27.62 kg/m?? PHYSICAL EXAM General: Patient alert and oriented, appearing in no acute distress. Well groomed and dressed appropriately. Head: Normocephalic, atraumatic. Eyes: Sclerae clear without injection. Conjunctivae without drainage, erythema or matting. Ears/Nose/Throat: External ear canals patent. TMs pearly pena bilaterally. Neck: Supple without lymphadenopathy. Trachea midline. Respiratory: Clear to auscultation bilaterally posteriorly without rhonchi, wheezes, or crackles. Nocough on exam today. Cardiac: S1 and S2 present with regular rate and rhythm. No murmurs or S3, S4 auscultated. Musculoskeletal: Gait normal. Normal movement of all extremities. No upper or lower extremity edema. Neurologic: Alert and Oriented x3. Responds appropriately to questions. Follows commands without difficulty. Pupils equal and reactive to light. Cranial nerves II through XII grossly intact. EOMs intact. No unilateral or focal weakness, no involuntary movements. Adequate coordination. Skin: Warm and dry. Intact and without rashes on visible areas. ASSESSMENT / PLAN #1 Diabetes Mellitus Type 2 Hyperglycemia (HCC) #2 Hypertension Essential Primary #3 Chronic Systolic (Congestive) Heart Failure (HCC) #4 Chronic Kidney Disease (CKD), Stage 3b Glomerular Filtration Rate (GFR) 30 To 44 (HCC) #5 Hypothyroidism #6 Hyperlipidemia In regards to type 2 diabetes, the patient states that his blood sugar levels have improved. Unfortunately, he forgot to bring his meter with him today. 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 He states that his glucose this morning was 150. At bedtime it is in the low 200s. We discussed dietary changes exercise and provided counseling. The patient has changed his lifestyle, and has been able to lose some weight, he is limiting sugar and salt intake. He was congratulated on his improvement. He did have a hard few weeks with his cancer diagnosis and had more cravings and less discipline with his diet due to that stress . His A1C therefore didn't change and is still 9.3. I encouraged him to continue with his efforts. He will continue on his current medication regiment to include 25 mg of Jardiance, 10-30 units subcu 3 times daily with sliding scale of insulin NovoLog. And 33 units of Lantus. He denies any significant lows, no shortness of breath or chest pain. His blood pressure is within goal today 128/69. He appears to be volume stable with no sign of decompensation or heartfailure. His dry weight is 98 kilos. His weight today is 99 kg but he denies any new dyspnea symptoms. No sign of overload on exam He will continue on his regiment of torsemide 40 mg every morning, metoprolol 25 mg daily, as well as 25 mg of losartan. He is on statin therapy with Lipitor 80 mg daily. The patient has a scheduled trip to [facility]. We discussed the importance of following his current diet which is heart healthy diabetic diet even when he goes on the trip. Avoid eating out if possible. Limiting salt and trans fat consumption. In regards to his CKD stage IIIB, this is likely secondary to his longstanding diabetic nephropathy and hypertension. He does follow with Nephrology. His next appointment is scheduled for August.The patient is due for his preventive health maintenance colonoscopy, we discussed rechecking A1c inif he had is below 9, we can proceed with a preop evaluation when I see him in 1 month. He denies any melena hematochezia or new symptoms. He is requesting a derm referral for a full skin check . Other orders Orders Placed This Encounter Procedures ??? Hemoglobin A1c ??? Community Internal Medicine office visit (clinic) ??? Dermatology - General consult (clinic) Symptoms: if symptoms are getting worse or patient develops fever/chills or new symptoms: advise patient to come back and see a provider immediately. PATIENT EDUCATION Patient Education: Ready to learn, no apparent learning barriers were identified; learning preferences include listening. Explained diagnosis and treatment plan; patient expressed understanding of the content. Time spent 41 minutes Electronically signed by: Shayla Alford D.O. 08/07/21 7:17 PM RENOVATION PLANT SUPERVISOR VATION PLANT SUPERVISOR documented in this encounter Plan of Treatment Scheduled Orders Name Type Priority Associated Diagnoses Order S chedule Hemoglobin A1c Lab Routine Diabetes Mellitus Type 2 W ith Expected: 10/31/2021 Diabetic Chronic Kidney (Brenda roximate), Expires: Disease (HCC) 07/31/2022 Scheduled Referrals Name Type Priority [facility]oses [facility] Referral Routine Ex pected: Medicine office 08/30/2021 visit (clinic) (Approximate) , Expires: 07/31/2024 documented as of this encounter Visit Diagnoses Diagnosis Hypertension Essential Primary - Primary 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 PCP - General Internal Medicine 05/22/[address] [id number] documented as of this encounter
--- OUTSIDE RECORDS SUMMARY | 2022-05-21 11:17 | XMS_ITS | Encounter Summary ---
:[address] [facility] Address [address] [place] [address] Care Team Providers Name Role Phone Shayla Alford D.O. 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 [facility] Procedures Cystoscopy (specific provider) [address], [place] [address] Referral ID Status Reason Start Date Expiration Date Visits Requ ested Visits Authorized [id number] Closed 07/23/2021 07/23/2022 1 1 Reason for Visit Outpatient (Routine) - Closed Specialty Diagnoses / Procedures Referred By Contact Refer red To Contact Urology Prasanna Bernal M.D. [facility] Region [address] [place] [address] Referral ID Status Reason Start Date Expiration Date Visits Requ ested Visits Authorized [id number] Closed 07/02/2021 07/02/2022 1 1 Encounter Details Date Type Department Care Team Description 07/23/2021 Office Visit Department of Urology Prasanna Bernal Mal ignant Neoplasm Of Bladder Lateral Wall (HCC) (Primary Dx); in [place] M[place]. Malignant Neoplasm Of Bladder Posterior Wall (HCC) [address] [place] [id number] Social History [...] do you attend yazidi or Never 2021 temple services? 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 Sex Assigned at Date Recorded Male 05/21/2018 2:34 PM CDT documented as of this encounter Progress Notes Prasanna Bernal M.D. - 07/23/2021 11:00 AM CDT CHIEF COMPLAINT/REASON FOR VISIT Bladder cancer ?? HISTORY OF PRESENT ILLNESS This is a 76-year-old male who was diagnosed with papillary transitional cell carcinoma, low-grade, stage TA with an initial resection on May 22, 2016. The original tumor occurred on the right lateral wall. He has not had any recurrences identified until his cystoscopy of December 31, 2020. He was taken to the operating room for repeat resection on July 18, 2021. He is here for catheter removal andto review the pathology. Outside of catheter related symptoms he has no complaints. ?? MEDICATIONS Current Outpatient Medications Medication Sig Dispense Refill ??? albuterol inhaler INHALE 2 PUFFS BY INHALATION EVERY 6 HOURS NEEDED FOR SHORTNESS OF BREATHSHAKE WELL (FOR IMMEDIATE RELIEF). ??? atorvastatin (for_LIPITOR) 80 mg tablet Take 80 mg by mouth daily. ??? blood sugar diagnostic (ACCU-CHEK MIHAI PLUS TEST STRP) strips Reports checking 4-5 times daily. ??? budesonide-formoteroL (SYMBICORT) 160-4.5 mcg/actuation inhaler Inhale 2 puffs 2 (two) times a day. Start at 1 puff twice daily x 4 weeks, then 2 puffs twice daily if tolerated. 1 Inhaler 11 ??? cholecalciferol, vitamin D3, (cholecalciferol) 1,000 Unit tablet Take 1,000 Units by mouth daily. ??? clopidogrel (PLAVIX) 75 mg tablet Take 1 tablet [...] E11.40 Lifetime use 6 kit 3 ??? insulin aspart U-100 (NovoLOG FlexPen) 100 unit/mL (3 mL) injection Inject 11 Units under the skin 3 (three) times a day with meals. (Patient taking differently: Inject 10-30 Units under the skin 3(three) times a day with meals. Sliding scale dose ) ??? insulin glargine (Lantus U-100 Insulin) 100 unit/mL injection Inject 30 Units under the skin at bedtime. ??? levothyroxine (SYNTHROID, LEVOTHROID) 100 mcg tablet Take 1 tablet (100 mcg total) by mouth daily. 90 tablet 3 ??? losartan (COZAAR) 25 mg tablet Take 1 tablet (25 mg total) by mouth daily. 90 tablet 3 ??? metoprolol succinate (TOPROL-XL) 25 mg 24 hr tablet Take 1 tablet (25 mg total) by mouth daily. Do not crush or chew. 90 tablet 3 ??? PEN NEEDLE, DIABETIC MISC Yani Fine 30 disposable needles. For use with Insulin Pens, 4 times daily ??? SYRINGE-NEEDLE,INSULIN,0.5 ML (INSULIN SYRINGE MISC) ??? torsemide (DEMADEX) 20 mg tablet Take 2 tablets (40 mg total) by mouth every morning before breakfast. 180 tablet 3 ??? traZODone (DESYREL) 100 mg tablet Take 0.5 tablets (50 mg total) by mouth at bedtime as needed for sleep. 30 tablet 1 No current facility-administered medications for this visit. ?? ALLERGIES Allergies Allergen Reactions ??? Doxycycline Anaphylaxis and Other (see comments) Bactrim ??? Penicillin Hives and Rash Cerner Listed no Reactions ??? Sulfa (Sulfonamide Antibiotics) Other (see comments) and Anaphylaxis Cerner Listed no Reactions ??? Amlodipine Hypotension, Nausea Only and Other (see comments) ??? Lisinopril Cough ??? Victoza 2-Eyal [Liraglutide] GI intolerance ??? Gadavist [Gadobutrol] GI intolerance Patient vomited after administration ? Voiding trial: Patient's bladder was filled with approximately 200-250 mL of normal saline. He was able to void this out without difficulty. DIAGNOSTICS Final Diagnosis A) BLADDER, ANTERIOR WALL, BIOPSY: 1. No diagnostic alterations 2. Sampling includes: Urothelium, lamina propria, muscularis propria 3. Negative for atypia and malignancy B) BLADDER, RIGHT LATERAL WALL, BIOPSY: 1. No diagnostic alterations 2. Sampling includes: Urothelium, lamina propria 3. Negative for atypia and malignancy C) BLADDER, LEFT LATERAL WALL, BIOPSY: 1. No diagnostic alterations 2. Sampling includes: Urothelium, lamina propria, muscularis propria 3. Negative for atypia and??malignancy D) BLADDER, POSTERIOR WALL TUMOR, TRANSURETHRAL RESECTION: 1. Non-invasive papillary urothelial carcinoma, high grade 2. Sampling includes: Urothelium, lamina propria, muscularis propria 3. Associated carcinoma in situ: Absent at ??3:45 PM ? IMPRESSION/REPORT/PLAN Transitional cell carcinoma the urinary bladder, now high-grade, stage Ta. Most recent tumor was located on the posterior wall. Prior tumor was located on the right lateral wall. ?? PLAN: The patient, his and I reviewed the situation. We specifically addressed the concept that therehas been a biological change, in that it was low-grade and is now high-grade. We also reviewed the fact that this is a new location. I am recommending that we do an induction course of intravesical BCG. We reviewed BCG including mechanism of action, potential side effects and complications. We anticipate a full 6 week induction course. We anticipate getting a urinalysis and culture prior to each treatment. We anticipate repeat cystoscopy with urine cytology in 3 months. Approximately 40-45 minutes was spent. This included coordination of care and discussion. Electronically signed by: Prasanna Bernal M.D. 07/23/21 12:11 PM CDT documented in this encounter Plan of Treatment Not on filedocumented as of this encounter Results UroVysion for Detection of Bladder Cancer, Urine (10/18/2021 10:20 AM CAMP DISHWASHER) Component Value Ref Test Analysis Performed Pathologis t Range Method Time At Signature Result Summary Negative 11/05/2021 DTL 5:07 PM CAMP DISHWASHER Karyotype No evidence of 11/05/2021 DTL urothelial 5:07 PM CAMP DISHWASHER carcinoma. Reason for Evaluate for 11/05/2021 DT referral urothelial 5:07 PM CAMP DISHWASHER carcinoma. Specimen Varies 11/05/2021 DTL 5:07 PM CAMP DISHWASHER Source Voided 11/05/2021 DTL 5:07 PM CAMP DISHWASHER Released By Dhiraj Porras, 11/05/2021 DT Pat[place] 5:07 PM CAMP DISHWASHER Interpretation This test result does not rule out the possibility t hat the 11/05/2021 DTL patient may have a low-grade (i.e. grade 1 or 2) 5:07 PM CAMP DISHWASHER non-invasive papillary urothelial carcinoma. Some patients with low grade non-invasive papillary urothelial carcinoma do not have abnormalities with this FISH test. Comment: ----ADDITIONAL INFORMATION---- Fluorescence in situ hybridization (FISH ) with centromere probes for chromosomes 3 (D3Z1), 7(D7Z1), 17(D17Z1) , and a locus specific probe for 9p21 ([employer] [place], [place]) . This test has been modified from the man ufacturer's instructions. Its performance characteristics were determi darnell by [facility] in a manner consistent with CLIA requirements. This test has not been cleared or approved by the U.S. Food and Drug Administration . Specimen Anatomical Collection Method Collection Time Receive d Time (Source) Location / / Volume Laterality Varies (Urine, 10/18/2021 10:20 2 Voided) AM CAMP DISHWASHER 11:31 AM CAMP DISHWASHER Narrative This result has an attachment that is no t available. Prasanna Bernal M.D. LAB GENETIC TESTING Performing Organization Address City/State/ZIP Code Phon e Number [facility] - [address] [place], [place] [address] [place] [address] [facility] [address] Cytology Non-POWER SYSTEM ELECTRICAL ENGINEER (Scheduled) (10/18/2021 10:20 AM CAMP DISHWASHER) Component Value Ref Test Analysis Performed At [facility] gist Range Method Time Signature 10/19/2021 HK[facility] 9:33 AM CAMP DISHWASHER Fixative 50% alcohol 10/19/2021 [facility] 9:33 AM CAMP DISHWASHER Report Brady Goodrich MD 10/19/2021 HK electronically 9:33 AM CAMP DISHWASHER signed by I verify that I have examined all relevant slides/materials for the specimen(s) and rendered or confirmed the diagnosis. Gross Description Received 50 10/19/2021 [facility] ml of yellow 9:33 AM CAMP DISHWASHER alcohol fixed fluid. Collection clean void 10/19/2021 [facility] Procedure 9:33 AM CAMP DISHWASHER Source A. Urine, 10/19/2021 [facility] Clean Catch, 9:33 AM CAMP DISHWASHER voided Clinical History unknown 10/19/2021 [facility] 9:33 AM CAMP DISHWASHER Interpretation A. Urine, Clean Catch, voided (cytospin): Negative f or 10/19/2021 [facility] High-Grade Urothelial Carcinoma. 9:33 AM CAMP DISHWASHER Specimen Anatomical Collection Method Collection Time Receive d Time (Source) Location / / Volume Laterality Varies (Urine, 10/18/2021 10:20 2 2:04 Clean Catch) AM CAMP DISHWASHER PM CAMP DISHWASHER Narrative This result has an attachment that is no t available. Prasanna Bernal M.D. LAB SURG PATH ORDERABLES Performing Organization Address [facility] Phon e Number [address] [address] [facility] [address] Cytology [address] [place] [address] (ABNORMAL) Bacterial Culture, Aerobic + Susc, Urine (09/17/2021 9:01 AM CAMP DISHWASHER) Analysis Performed At Patho logist Time Signature Urine Culture Mixed 09/18/2021 [facility] surekha. (A) 9:23 AM CAMP DISHWASHER Specimen Anatomical Collection Method Collection Time Receive d Time (Source) Location / / Volume Laterality Urine (Urine, 09/17/2021 9:01 AM 09/17/20 2:06 Midstream) CAMP DISHWASHER PM CAMP DISHWASHER Comment: Specimen Source Site: Urine Prasanna Bernal M.D. LAB MICROBIOLOGY - GENERAL O RDERABLES Performing Organization Address City/[facility] Phon e Number [facility]- [address] [place] [address] [place] [address] (ABNORMAL) Urinalysis with Microscopic: Urine, Midstream (09/17/2021 9:01 AM CAMP DISHWASHER) Analysis Performed At Patho logist Time Signature Source Urine, Urine, 09/17/2021 FB60 Midstream 9:02 AM CAMP DISHWASHER Clarity Clear Clear 09/17/2021 FB60 9:10 AM CAMP DISHWASHER Color Yellow 09/17/2021 FB60 9:10 AM CAMP DISHWASHER Comment: ----REFERENCE VALUE---- Colorless Yellow Mitra Blood Moderate (A) Negative 09/17/2021 9:10 AM CAMP DISHWASHER FB60 Nitrite Negative Negative 09/17/2021 9:10 AM CAMP DISHWASHER FB60 Leukocyte Esterase Negative Negative 09/17/2021 9:10 AM CS T FB60 Protein 100 (A) mg/dL 09/17/2021 9:10 AM CAMP DISHWASHER FB60 Comment: ----REFERENCE VALUE---- Negative Trace Glucose >=1000 (A) Negative mg/dL 09/17/2021 9:10 AM CAMP DISHWASHER F B60 Ketones, QI(U) Negative Negative mg/dL 09/17/2021 9:[address] FB60 Bilirubin Negative Negative 09/17/2021 9:10 AM CAMP DISHWASHER FB60 pH 5.5 5.0 - 8.0 09/17/2021 9:10 AM CAMP DISHWASHER FB60 Specific [place] 1.015 1.001 - 1.035 09/17/2021 9:10 AM CAMP DISHWASHER FB60 Urobilinogen 0.2 0.2 - 1.0 mg/dL 09/17/2021 9:10 AM CS T FB60 White Blood Cells 4-10 (A) /hpf 09/17/2021 9:25 AM CAMP DISHWASHER FB60 Comment: ----REFERENCE VALUE---- Males: 0-3 Females: 0-10 Unknown: 0-10 Red Blood Cells 3-10 (A) 0 - 2 /hpf 09/17/2021 9:25 AM CAMP DISHWASHER FB60 Dysmorphic Red Blood Cells <=25 <=25 % 09/17/2021 9: 25 AM CAMP DISHWASHER FB60 Specimen Anatomical Collection Method Collection Time Receive d Time (Source) Location / / Volume Laterality Urine (Urine, 09/17/2021 9:01 AM 09/17/20 9:01 Midstream) CAMP DISHWASHER AM CAMP DISHWASHER Prasanna Bernal M.D. LAB URINE ORDERABLES Performing Organization Address City/State/ZIP Code Phon e Number [facility]- [address] [place] [address] [facility] [address] [place] [address] System in [place] [address] (ABNORMAL) Bacterial Culture, Aerobic + Susc, Urine (09/10/2021 8:27 AM CAMP DISHWASHER) Analysis Performed At Path logis Time Signature Urine Culture Mixed 09/11/2021 [facility] surekha. (A) 1:04 PM CAMP DISHWASHER Specimen Anatomical Collection Method Collection Time Receive d Time (Source) Location / / Volume Laterality Urine (Urine, 09/10/2021 8:27 AM 09/10/20 3:35 Midstream) CAMP DISHWASHER PM CAMP DISHWASHER Comment: Specimen Source Site: Urine Mid stream Prasanna Bernal M.D. LAB MICROBIOLOGY - GENERAL O RDERABLES Performing Organization Address City/State/ZIP Code Phon e Number [facility]- [address] [place] [address] [place] [address] System [address] (ABNORMAL) Urinalysis with Microscopic: Urine, Midstream (09/10/2021 8:27 AM CAMP DISHWASHER) Analysis Performed At [facility] Time Signature Source Urine, Urine, 09/10/2021 FB60 Midstream 8:44 AM CAMP DISHWASHER Clarity Clear Clear 09/10/2021 FB60 8:58 AM CAMP DISHWASHER Color Yellow 09/10/2021 FB60 8:58 AM CAMP DISHWASHER Comment: ----REFERENCE VALUE---- Colorless Yellow Mitra Blood Small (A) Negative 09/10/2021 8:58 AM CAMP DISHWASHER FB60 Nitrite Negative Negative 09/10/2021 8:58 AM CAMP DISHWASHER FB60 Leukocyte Esterase Trace (A) Negative 09/10/2021 8:58 AM CS T FB60 Protein Negative mg/dL 09/10/2021 8:58 AM CAMP DISHWASHER FB60 Comment: ----REFERENCE VALUE---- Negative Trace Glucose >=1000 (A) Negative mg/dL 09/10/2021 8:58 AM CAMP DISHWASHER F B60 Ketones, QI(U) Negative Negative mg/dL 09/10/2021 8:[address] FB60 Bilirubin Negative Negative 09/10/2021 8:58 AM CAMP DISHWASHER FB60 pH 5.5 5.0 - 8.0 09/10/2021 8:58 AM CAMP DISHWASHER FB60 Specific [place] 1.015 1.001 - 1.035 09/10/2021 8:58 AM CAMP DISHWASHER FB60 Urobilinogen 0.2 0.2 - 1.0 mg/dL 09/10/2021 8:58 AM CS T FB60 White Blood Cells 4-10 (A) /hpf 09/10/2021 9:00 AM CAMP DISHWASHER FB60 Comment: ----REFERENCE VALUE---- Males: 0-3 Females: 0-10 Unknown: 0-10 Red Blood Cells None Seen 0 - 2 /hpf 09/10/2021 9:00 AM CAMP DISHWASHER FB60 Specimen Anatomical Collection Method Collection Time Receive d Time (Source) Location / / Volume Laterality Urine (Urine, 09/10/2021 8:27 AM 09/10/20 21 8:44 Midstream) CAMP DISHWASHER AM CAMP DISHWASHER Prasanna Bernal M.D. LAB URINE ORDERABLES Performing Organization Address City/[facility] Phon e Number [address] [place], [place] [id number] [place] [address] LAB [address] [place] [address] [address] (ABNORMAL) Bacterial Culture, Aerobic + Susc, Urine (09/03/2021 8:34 AM CAMP DISHWASHER) Analysis Performed At Patho logist Time Signature Urine Culture Mixed 09/04/2021 TO surekha. (A) 1:23 PM CAMP DISHWASHER Specimen Anatomical Collection Method Collection Time Receive d Time (Source) Location / / Volume Laterality Urine (Urine, 09/03/2021 8:34 AM 09/03/20 21 2:19 Midstream) CAMP DISHWASHER PM CAMP DISHWASHER Comment: Specimen Source Site: Urine Prasanna Bernal M.D. LAB MICROBIOLOGY - GENERAL O RDERABLES Performing Organization Address City/[facility] Phon e Number [facility]- [address] [place] [address] [place] [address] (ABNORMAL) Urinalysis with Microscopic: Urine, Midstream (09/03/2021 8:34 AM CAMP DISHWASHER) Analysis Performed At Patho logist Time Signature Source Urine, Urine, 09/03/2021 FB60 Midstream 8:49 AM CAMP DISHWASHER Clarity Clear Clear 09/03/2021 FB60 8:57 AM CAMP DISHWASHER Color Yellow 09/03/2021 FB60 8:57 AM CAMP DISHWASHER Comment: ----REFERENCE VALUE---- Colorless Yellow Mitra Blood Trace (A) Negative 09/03/2021 8:57 AM CAMP DISHWASHER FB60 Nitrite Negative Negative 09/03/2021 8:57 AM CAMP DISHWASHER FB60 Leukocyte Esterase Negative Negative 09/03/2021 8:57 AM CS T FB60 Protein Negative mg/dL 09/03/2021 8:57 AM CAMP DISHWASHER FB60 Comment: ----REFERENCE VALUE---- Negative Trace Glucose >=1000 (A) Negative mg/dL 09/03/2021 8:57 AM CAMP DISHWASHER F B60 Ketones, QI(U) Negative Negative mg/dL 09/03/2021 8:[address] FB60 Bilirubin Negative Negative 09/03/2021 8:57 AM CAMP DISHWASHER FB60 pH 5.5 5.0 - 8.0 09/03/2021 8:57 AM CAMP DISHWASHER FB60 Specific [place] 1.010 1.001 - 1.035 09/03/2021 8:57 AM CAMP DISHWASHER FB60 Urobilinogen 0.2 0.2 - 1.0 mg/dL 09/03/2021 8:57 AM CS T FB60 White Blood Cells 4-10 (A) /hpf 09/03/2021 9:13 AM CAMP DISHWASHER FB60 Comment: ----REFERENCE VALUE---- Males: 0-3 Females: 0-10 Unknown: 0-10 Red Blood Cells Occ-2 0 - 2 /hpf 09/03/2021 9:13 AM CAMP DISHWASHER FB60 Specimen Anatomical Collection Method Collection Time Receive d Time (Source) Location / / Volume Laterality Urine (Urine, 09/03/2021 8:34 AM 09/03/20 21 8:49 Midstream) CAMP DISHWASHER AM CAMP DISHWASHER Prasanna Bernal M.D. LAB URINE ORDERABLES Performing Organization Address City/State/ZIP Code Phon e Number [facility]- [address] [place] [address] [facility] [facility] [address] [place] [address] System in [place] [address] (ABNORMAL) Bacterial Culture, Aerobic + Susc, Urine (08/27/2021 8:25 AM CAMP DISHWASHER) Analysis Performed At Patho logist Time Signature Urine Culture Mixed 08/28/2021 [facility] surekha. (A) 10:47 AM CAMP DISHWASHER Specimen Anatomical Collection Method Collection Time Receive d Time (Source) Location / / Volume Laterality Urine (Urine, 08/27/2021 8:25 AM 08/27/20 3:01 Midstream) CAMP DISHWASHER PM CAMP DISHWASHER Comment: Specimen Source Site: Urine Prasanna Bernal M.D. LAB MICROBIOLOGY - GENERAL O RDERABLES Performing Organization Address City/State/ZIP Code Phon e Number [facility]- [address] [place] [address] [place] [address] System in [place] [address] [place] [address] (ABNORMAL) Urinalysis with Microscopic: Urine, Midstream (08/27/2021 12:04 AM CAMP DISHWASHER) Analysis Performed At Patho logist Time Signature Source Urine, Urine, 08/27/2021 FB60 Midstream 8:49 AM CAMP DISHWASHER Clarity Clear Clear 08/27/2021 FB60 9:13 AM CAMP DISHWASHER Color Yellow 08/27/2021 FB60 9:13 AM CAMP DISHWASHER Comment: ----REFERENCE VALUE---- Colorless Yellow Mitra Blood Trace (A) Negative 08/27/2021 9:13 AM CAMP DISHWASHER FB60 Nitrite Negative Negative 08/27/2021 9:13 AM CAMP DISHWASHER FB60 Leukocyte Esterase Small (A) Negative 08/27/2021 9:13 AM CS T FB60 Protein 30 (A) mg/dL 08/27/2021 9:13 AM CAMP DISHWASHER FB60 Comment: ----REFERENCE VALUE---- Negative Trace Glucose >=1000 (A) Negative mg/dL 08/27/2021 9:13 AM CAMP DISHWASHER F B60 Ketones, QI(U) Negative Negative mg/dL 08/27/2021 9:[address] FB60 Bilirubin Negative Negative 08/27/2021 9:13 AM CAMP DISHWASHER FB60 pH 5.5 5.0 - 8.0 08/27/2021 9:13 AM CAMP DISHWASHER FB60 Specific [place] 1.015 1.001 - 1.035 08/27/2021 9:13 AM CAMP DISHWASHER FB60 Urobilinogen 0.2 0.2 - 1.0 mg/dL 08/27/2021 9:13 AM CS T FB60 White Blood Cells 4-10 (A) /hpf 08/27/2021 9:13 AM CAMP DISHWASHER FB60 Comment: ----REFERENCE VALUE---- Males: 0-3 Females: 0-10 Unknown: 0-10 Red Blood Cells Occ-2 0 - 2 /hpf 08/27/2021 9:13 AM CAMP DISHWASHER FB60 Squamous Cells 4-10 /hpf 08/27/2021 9:13 AM CAMP DISHWASHER FB 60 Specimen Anatomical Collection Method Collection Time Receive d Time (Source) Location / / Volume Laterality Urine (Urine, 08/27/2021 12:04 08/27/2021 8:49 Midstream) AM CAMP DISHWASHER AM CAMP DISHWASHER Prasanna Bernal M.D. LAB URINE ORDERABLES Performing Organization Address [facility] Phon e Number [address] [place] [address] [facility] [address] [place] [address] System [address] (ABNORMAL) Bacterial Culture, Aerobic + Susc, Urine (08/20/2021 8:19 AM CAMP DISHWASHER) Analysis Performed At Patho logist Time Signature Urine Culture Mixed 08/21/2021 [facility] surekha. (A) 10:32 AM CAMP DISHWASHER Specimen Anatomical Collection Method Collection Time Receive d Time (Source) Location / / Volume Laterality Urine (Urine, 08/20/2021 8:19 AM 08/20/20 2:13 Midstream) CAMP DISHWASHER PM CAMP DISHWASHER Comment: Specimen Source Site: Urine Prasanna Bernal M.D. LAB MICROBIOLOGY - GENERAL O RDERABLES Performing Organization Address City/[facility] Phon e Number [address] [address] [place] [address] [address] (ABNORMAL) Urinalysis with Microscopic: Urine, Midstream (08/20/2021 8:19 AM CAMP DISHWASHER) Analysis Performed At Patho logist Time Signature Source Urine, Urine, 08/20/2021 FB60 Midstream 8:47 AM CAMP DISHWASHER Clarity Clear Clear 08/20/2021 FB60 9:04 AM CAMP DISHWASHER Color Yellow 08/20/2021 FB60 9:04 AM CAMP DISHWASHER Comment: ----REFERENCE VALUE---- Colorless Yellow Mitra Blood Small (A) Negative 08/20/2021 9:04 AM CAMP DISHWASHER FB60 Nitrite Negative Negative 08/20/2021 9:04 AM CAMP DISHWASHER FB60 Leukocyte Esterase Negative Negative 08/20/2021 9:04 AM CS T FB60 Protein Negative mg/dL 08/20/2021 9:04 AM CAMP DISHWASHER FB60 Comment: ----REFERENCE VALUE---- Negative Trace Glucose >=1000 (A) Negative mg/dL 08/20/2021 9:04 AM CAMP DISHWASHER F B60 Ketones, QI(U) Negative Negative mg/dL 08/20/2021 9:[address] FB60 Bilirubin Negative Negative 08/20/2021 9:04 AM CAMP DISHWASHER FB60 pH 5.5 5.0 - 8.0 08/20/2021 9:04 AM CAMP DISHWASHER FB60 Specific [place] 1.010 1.001 - 1.035 08/20/2021 9:04 AM CAMP DISHWASHER FB60 Urobilinogen 0.2 0.2 - 1.0 mg/dL 08/20/2021 9:04 AM CS T FB60 White Blood Cells 11-20 (A) /hpf 08/20/2021 9:04 AM CAMP DISHWASHER FB60 Comment: ----REFERENCE VALUE---- Males: 0-3 Females: 0-10 Unknown: 0-10 Red Blood Cells Occ-2 0 - 2 /hpf 08/20/2021 9:04 AM CAMP DISHWASHER FB60 Dysmorphic Red Blood Cells <=25 <=25 % 08/20/2021 9: 04 AM CAMP DISHWASHER FB60 Squamous Cells Occ-3 /hpf 08/20/2021 9:04 AM CAMP DISHWASHER FB 60 Specimen Anatomical Collection Method Collection Time Receive d Time (Source) Location / / Volume Laterality Urine (Urine, 08/20/2021 8:19 AM 08/20/20 8:47 Midstream) CAMP DISHWASHER AM CAMP DISHWASHER Prasanna Bernal M.D. LAB URINE ORDERABLES Performing Organization Address City/State/ZIP Code Phon e Number [facility]- [address] [place] [address] [facility] [address] [place] [address] System in [place] [address] (ABNORMAL) Bacterial Culture, Aerobic + Susc, Urine (08/13/2021 8:03 AM CAMP DISHWASHER) Analysis Performed At Patho logist Time Signature Urine Culture Mixed 08/14/2021 [facility] surekha. (A) 9:53 AM CAMP DISHWASHER Specimen Anatomical Collection Method Collection Time Receive d Time (Source) Location / / Volume Laterality Urine (Urine, 08/13/2021 8:03 AM 08/13/20 21 2:11 Midstream) CAMP DISHWASHER PM CAMP DISHWASHER Comment: Specimen Source Site: Urine Prasanna Bernal M.D. LAB MICROBIOLOGY - GENERAL O RDERABLES Performing Organization Address City/State/ZIP Code Phon e Number [facility]- [address] [place] [address] [place] [address] System in [place] [address] [place] [address] (ABNORMAL) Urinalysis with Microscopic: Urine, Midstream (08/13/2021 8:03 AM CAMP DISHWASHER) Analysis Performed At Patho logist Time Signature Source Urine, Urine, 08/13/2021 FB60 Midstream 8:31 AM CAMP DISHWASHER Clarity Clear Clear 08/13/2021 FB60 8:57 AM CAMP DISHWASHER Color Yellow 08/13/2021 FB60 8:57 AM CAMP DISHWASHER Comment: ----REFERENCE VALUE---- Colorless Yellow Mitra Blood Small (A) Negative 08/13/2021 8:57 AM CAMP DISHWASHER FB60 Nitrite Negative Negative 08/13/2021 8:57 AM CAMP DISHWASHER FB60 Leukocyte Esterase Trace (A) Negative 08/13/2021 8:57 AM CS T FB60 Protein Trace mg/dL 08/13/2021 8:57 AM CAMP DISHWASHER FB60 Comment: ----REFERENCE VALUE---- Negative Trace Glucose >=1000 (A) Negative mg/dL 08/13/2021 8:57 AM CAMP DISHWASHER F B60 Ketones, QI(U) Negative Negative mg/dL 08/13/2021 8:[address] FB60 Bilirubin Negative Negative 08/13/2021 8:57 AM CAMP DISHWASHER FB60 pH 5.5 5.0 - 8.0 08/13/2021 8:57 AM CAMP DISHWASHER FB60 Specific [place] 1.015 1.001 - 1.035 08/13/2021 8:57 AM CAMP DISHWASHER FB60 Urobilinogen 0.2 0.2 - 1.0 mg/dL 08/13/2021 8:57 AM CS T FB60 White Blood Cells Occ-3 /hpf 08/13/2021 8:57 AM CAMP DISHWASHER FB60 Comment: ----REFERENCE VALUE---- Males: 0-3 Females: 0-10 Unknown: 0-10 Red Blood Cells None Seen 0 - 2 /hpf 08/13/2021 8:57 AM CAMP DISHWASHER FB60 Squamous Cells Occ-3 /hpf 08/13/2021 8:57 AM CAMP DISHWASHER FB 60 Specimen Anatomical Collection Method Collection Time Receive d Time (Source) Location / / Volume Laterality Urine (Urine, 08/13/2021 8:03 AM 08/13/20 21 8:31 Midstream) CAMP DISHWASHER AM CAMP DISHWASHER Prasanna Bernla M.D. 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 PCP - General Internal Medicine 05/22/[address] [place] [phone] documented as of this encounter
--- OUTSIDE RECORDS SUMMARY | 2022-05-21 11:17 | XMS_ITS | Encounter Summary ---
:1945 Author Organization [facility] Address [address] [place] [address] Care Team Providers Name Role Phone Shayla Alford D.O. Primary Care Provider [phone] Encounter Details Date Type Department Care Team Description 08/20/2021 Hospital Encounter Department of Cirilo Bernal Neoplasm Of Laboratory Medicine Pato Mims Bladder Lateral Wall in [place], [address] ([facility]) [address] [place] [phone] Social History Tobacco Use Types Packs/Day [...] do you attend denominational or Never 2021 church services? Do you belong to any clubs [...] have completed or the highest Martin, MEd, DENTAL CHAIRSIDE ASSISTANT, CAY[place]) degree you have received? Sex [...] (FREESTYLE SOFYA) times a day. Use to [facility] scan Sofya sensor 5 times daily and [...] PEN NEEDLE, DIABETIC Yani Fine 30 0 [facility] disposable needles. For use with Insulin Pens, 4 times daily SYRINGE-NEEDLE,INSULIN,0 0 .5 ML (INSULIN SYRINGE [facility]) traZODone (DESYREL) 100 Take 0.5 tablets [...] bedtime. injectionIndications: Diabetes Mellitus Type 2 Hyperglycemia ([facility]) lisinopriL Take 1 tablet by 0 11/15/2008 [...] Date/Time Associated Comments Diagnosis BACTERIAL CULTURE, Routine 08/20/2021 8:19 AM Malignant Neopla sm Results for this AEROBIC + SUSC, URINE RIGGING SLINGER Of Bladder Lateral procedure are in Wall ([facility]) the results section. URINALYSIS WITH Routine 08/20/2021 8:19 AM Malignant Neoplasm Results for this MICROSCOPIC RIGGING SLINGER Of Bladder Lateral procedure are in Wall ([facility]) the results section. documented in this encounter Results (ABNORMAL) Bacterial Culture, Aerobic + Susc, Urine (08/20/2021 8:19 AM RIGGING SLINGER) Analysis Performed At [facility] Urine Culture Mixed 08/21/2021 [facility] surekha. (A) 10:32 AM RIGGING SLINGER Specimen Anatomical Collection Method Collection Time Receive d Time (Source) Location / / Volume Laterality Urine (Urine, 08/20/2021 8:19 AM 08/20/20 2:13 Midstream) RIGGING SLINGER PM RIGGING SLINGER Comment: Specimen Source Site: Urine Prasanna Bernal M.D. LAB MICROBIOLOGY - GENERAL O RDERABLES Performing Organization Address City/State/ZIP Code Phon e Number [facility]- [address] [place] [id number] [place] [address] (ABNORMAL) Urinalysis with Microscopic: Urine, Midstream (08/20/2021 8:19 AM RIGGING SLINGER) Analysis Performed At [facility] Signature Source Urine, Urine, 08/20/2021 FB60 Midstream 8:47 AM RIGGING SLINGER Clarity Clear Clear 08/20/2021 FB60 9:04 AM RIGGING SLINGER Color Yellow 08/20/2021 FB60 9:04 AM RIGGING SLINGER Comment: ----REFERENCE VALUE---- Colorless Yellow Mitra Blood Small (A) Negative 08/20/2021 9:04 AM RIGGING SLINGER FB60 Nitrite Negative Negative 08/20/2021 9:04 AM RIGGING SLINGER FB60 Leukocyte Esterase Negative Negative 08/20/2021 9:04 AM CS T FB60 Protein Negative mg/dL 08/20/2021 9:04 AM RIGGING SLINGER FB60 Comment: ----REFERENCE VALUE---- Negative Trace Glucose >=1000 (A) Negative mg/dL 08/20/2021 9:04 AM RIGGING SLINGER F B60 Ketones, QI(U) Negative Negative mg/dL 08/20/2021 9:[address] FB60 Bilirubin Negative Negative 08/20/2021 9:04 AM RIGGING SLINGER FB60 pH 5.5 5.0 - 8.0 08/20/2021 9:04 AM RIGGING SLINGER FB60 Specific [place] 1.010 1.001 - 1.035 08/20/2021 9:04 AM RIGGING SLINGER FB60 Urobilinogen 0.2 0.2 - 1.0 mg/dL 08/20/2021 9:04 AM CS T FB60 White Blood Cells 11-20 (A) /hpf 08/20/2021 9:04 AM RIGGING SLINGER FB60 Comment: ----REFERENCE VALUE---- Males: 0-3 Females: 0-10 Unknown: 0-10 Red Blood Cells Occ-2 0 - 2 /hpf 08/20/2021 9:04 AM RIGGING SLINGER FB60 Dysmorphic Red Blood Cells <=25 <=25 % 08/20/2021 9: 04 AM RIGGING SLINGER FB60 Squamous Cells Occ-3 /hpf 08/20/2021 9:04 AM RIGGING SLINGER FB 60 Specimen Anatomical Collection Method Collection Time Receive d Time (Source) Location / / Volume Laterality Urine (Urine, 08/20/2021 8:19 AM 08/20/20 8:47 Midstream) RIGGING SLINGER AM RIGGING SLINGER Prasanna Bernal M.D. 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 PCP - General Internal Medicine 05/22/[address] [phone] documented as of this encounter
--- OUTSIDE RECORDS SUMMARY | 2022-05-21 11:17 | XMS_ITS | Encounter Summary ---
:1945 Author Organization [facility] Address [address] [place] [address] Care Team Providers Name Role Phone Shayla Alford D.O. Primary Care Provider [phone] Encounter Details Date Type Department Care Team Description 09/03/2021 Hospital Encounter Department of Cirilo Bernal Neoplasm Of Laboratory Medicine Pato Mims Bladder Lateral Wall in [place], [address] ([facility]) [address] [place] [phone] Social History Tobacco Use Types Packs/Day [...] do you attend druze or Never 2021 uatsdin services? Do you belong to any clubs [...] have completed or the highest Martin, MEd, REFINERY OPERATOR HELPER, CAY[place]) degree you have received? Sex Assigned [...] (FREESTYLE SOFYA) times a day. Use to [facility] scan Sofya sensor 5 times daily and [...] Date/Time Associated Comments Diagnosis BACTERIAL CULTURE, Routine 09/03/2021 8:34 AM Malignant Neopla sm Results for this AEROBIC + SUSC, URINE PICKING SUPERVISOR Of Bladder Lateral procedure are in Wall ([facility]) the results section. URINALYSIS WITH Routine 09/03/2021 8:34 AM Malignant Neoplasm Results for this MICROSCOPIC PICKING SUPERVISOR Of Bladder Lateral procedure are in Wall ([facility]) the results section. documented in this encounter Results (ABNORMAL) Bacterial Culture, Aerobic + Susc, Urine (09/03/2021 8:34 AM PICKING SUPERVISOR) Analysis Performed At Patho logist Time Signature Urine Culture Mixed 09/04/2021 MKTO surekha. (A) 1:23 PM PICKING SUPERVISOR Specimen Anatomical Collection Method Collection Time Receive d Time (Source) Location / / Volume Laterality Urine (Urine, 09/03/2021 8:34 AM 09/03/20 21 2:19 Midstream) PICKING SUPERVISOR PM PICKING SUPERVISOR Comment: Specimen Source Site: Urine Prasanna Bernal M.D. LAB MICROBIOLOGY - GENERAL O RDERABLES Performing Organization Address City/State/ZIP Code Phon e Number [facility]- [facility] [place] [address] [place] [address] System in [place] [address] [place] [address] (ABNORMAL) Urinalysis with Microscopic: Urine, Midstream (09/03/2021 8:34 AM PICKING SUPERVISOR) Analysis Performed At Patho logist Time Signature Source Urine, Urine, 09/03/2021 FB60 Midstream 8:49 AM PICKING SUPERVISOR Clarity Clear Clear 09/03/2021 FB60 8:57 AM PICKING SUPERVISOR Color Yellow 09/03/2021 FB60 8:57 AM PICKING SUPERVISOR Comment: ----REFERENCE VALUE---- Colorless Yellow Mitra Blood Trace (A) Negative 09/03/2021 8:57 AM PICKING SUPERVISOR FB60 Nitrite Negative Negative 09/03/2021 8:57 AM PICKING SUPERVISOR FB60 Leukocyte Esterase Negative Negative 09/03/2021 8:57 AM CS T FB60 Protein Negative mg/dL 09/03/2021 8:57 AM PICKING SUPERVISOR FB60 Comment: ----REFERENCE VALUE---- Negative Trace Glucose >=1000 (A) Negative mg/dL 09/03/2021 8:57 AM PICKING SUPERVISOR F B60 Ketones, QI(U) Negative Negative mg/dL 09/03/2021 8:[address] FB60 Bilirubin Negative Negative 09/03/2021 8:57 AM PICKING SUPERVISOR FB60 pH 5.5 5.0 - 8.0 09/03/2021 8:57 AM PICKING SUPERVISOR FB60 Specific [place] 1.010 1.001 - 1.035 09/03/2021 8:57 AM PICKING SUPERVISOR FB60 Urobilinogen 0.2 0.2 - 1.0 mg/dL 09/03/2021 8:57 AM CS T FB60 White Blood Cells 4-10 (A) /hpf 09/03/2021 9:13 AM PICKING SUPERVISOR FB60 Comment: ----REFERENCE VALUE---- Males: 0-3 Females: 0-10 Unknown: 0-10 Red Blood Cells Occ-2 0 - 2 /hpf 09/03/2021 9:13 AM PICKING SUPERVISOR FB60 Specimen Anatomical Collection Method Collection Time Receive d Time (Source) Location / / Volume Laterality Urine (Urine, 09/03/2021 8:34 AM 09/03/20 8:49 Midstream) PICKING SUPERVISOR AM PICKING SUPERVISOR Prasanna Bernal M.D. 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 PCP - General Internal Medicine 05/22/20 [address] [place] [phone] documented as of this encounter
--- OUTSIDE RECORDS SUMMARY | 2022-05-21 11:17 | XMS_ITS | Encounter Summary ---
:1945 Author Organization [facility] Address [address] [place] [address] Care Team Providers Name Role Phone Shayla Alford D.O. Primary Care Provider [phone] Reason for Visit Reason Comments Communication Encounter Details Date Type Department Care Team Description 08/15/2021 Clinical Communication Department of Urology Lea Morin Communication in [facility] C, R.N. [address] [place] [phone] Social History Tobacco Use [...] do you attend druze or Never 2021 mu-ism services? Do you belong to any clubs [...] have completed or the highest Martin, MEd, TOOL FILER HAND, CAYDEN) degree you have received? Sex Assigned at Date Recorded Male 05/21/2018 2:34 PM CDT documented as of this encounter Miscellaneous Notes Telephone Encounter - Jacquie Hamilton, L.P.N. - 08/16/2021 9:12 AM OCEAN LIFEGUARD SUBJECTIVE CHIEF COMPLAINT / REASON FOR CALL Communication Information Discussed Patient contacted with advisement from provider given per Dr Reid direction. Patient requested appt to discuss left breast tenderness PLAN Disposition/Recommendation: patient transferred to appt desk to schedule appt Information/Education: patient/caller able to teach back Caller agreeable to plan of care: yes The following references were used: provider dr reid N LIFEGUARD Telephone Encounter - Shayla Alford D.O. - 08/15/2021 4:22 PM OCEAN LIFEGUARD Our pharmacist Zoya reviewed the patients medication list and did not find that his medications are causing the symptoms. At this point, I am not sure what is the source of the pain. We are happy to seehim in the clinic for further evaluation. Electronically signed by: Shayla Alford D.O. 08/15/21 4:23 PM OCEAN LIFEGUARD N LIFEGUARD Telephone Encounter - Lea Morin R.N. - 08/15/2021 3:08 PM CST Will forward to PCP to review and advise back to patient. Thank you! N LIFEGUARD Telephone Encounter - Lea Morin R.N. - 08/15/2021 2:29 PM CST Patient was in urology department for BCG treatment and states he has concerns for left breast tenderness. Denies any swelling, redness, nipple discharge or other concerns. Tenderness is 1-2 discomfort, when he moves his arm across the breast area or touch area. Patient wanted concern to inquire to Dr. Bernal or PCP. Will forward message to Dr. Bernal to review and advise, if need, send to PCP. N LIFEGUARD documented in this encounter Plan of Treatment Not on filedocumented as of this encounter Visit Diagnoses Not on filedocumented in this encounter Additional Health Concerns Assessment Noted Time PHQ-9 Depression Total Score: 18 04/28/2018 11:27 AM C DT documented as of this encounter Care Teams Beauty Artist Relationship Specialty Start Date End Date Shayla Alford D.O. PCP - General Internal Medicine 05/22/[address] [phone] documented as of this encounter
--- OUTSIDE RECORDS SUMMARY | 2022-05-21 11:17 | XMS_ITS | Encounter Summary ---
:1945 Author Organization [facility] Address [address] [place] [address] Care Team Providers Name Role Phone Shayla Alford D.O. Primary Care Provider [phone] Encounter Details Date Type Department Care Team Description 07/12/2021 Orders Only Department of Urology in Prasanna Meng M.D. [place], [place] [address] [place] [phone] (Wo rk) Social History Tobacco Use Types [...] do you attend methodist or Never 2021 baptist services? Do you belong to any clubs or No 10/09/2021 organizations such as methodist groups, unions, fraternal or athletic groups, or [...] have completed or the highest Martin, MEd, GROUP CARE WORKER, CAYDEN) degree you have received? Sex Assigned at Date Recorded Male 05/21/2018 2:34 PM CDT documented as of this encounter Plan of Treatment Not on filedocumented as of this encounter Visit Diagnoses Not on filedocumented in this encounter Additional Health Concerns Infection Onset Date Last Indicated Resolved Time COVID19 Pending 07/14/2021 07/15/2021 07/15/2021 9:46 PM CDT Assessment Noted Time PHQ-9 Depression Total Score: 18 04/28/2018 11:27 AM C DT documented as of this encounter Care Teams Chimney Sweeper Relationship Specialty Start Date End Date Shayla Alford D.O. PCP - General Internal Medicine 05/22/[address] [phone] documented as of this encounter
--- OUTSIDE RECORDS SUMMARY | 2022-05-21 11:17 | XMS_ITS | Encounter Summary ---
:1945 Author Organization [facility] Address [address] [place] [address] Care Team Providers Name Role Phone Shayla Alford D.O. Primary Care Provider [phone] Encounter Details Date Type Department Care Team Description 07/15/2021 Lab [facility] [address] ([facility]) [place], [place] [address] [facility] [phone] [place] [address] [phone] Social History Tobacco Use Types Packs/Day Years [...] or relatives? How often do you attend taoism or Never 2021 congregational services? Do you belong to any clubs or No 10/09/2021 organizations such as taoism groups, unions, fraternal or athletic groups, or [...] have completed or the highest Martin, MEd, RESTAURANT LINE SERVER, CAYDEN) degree you have received? Sex Assigned at Date Recorded Male 05/21/2018 2:34 PM CDT documented as of this encounter Plan of Treatment Not on filedocumented as of this encounter Procedures Procedure Name Priority Date/Time Associated Diagnosis Comme nts SARS CORONAVIRUS-2 Routine 07/15/2021 8:56 AM Malignant Neopla sm Results for this RNA, V CDT Of Bladder Posterior procedu re are in Wall (HCC) the results section. documented in this encounter Results SARS Coronavirus-2 RNA, V Asymptomatic (07/15/2021 8:56 AM CDT) [facility] Method Time Signature SARS-CoV-2 Swab, 07/15/2021 MKTO Specimen Nasopharynx 9:46 PM CDT Source SARS CoV-2 Undetected Undetected 07/15/2021 [facility] RNA, TMA 9:46 PM CDT Comment: SARS-CoV-2 RNA absent. This result does not rule out COVID-19 in the patient, as the sensitivity of the test depends o n the timing of the specimen collection and the quality of the specim en. Result should be correlated with patient's history and clinical presentat ion. ----ADDITIONAL INFORMATION---- This molecular amplification test was pe rformed using the Aptima SARS-CoV-2 assay ([employer] on the [employer] Sys tem under emergency use authorization (EUA) by the U.S. Food and Drug Administ ten. Fact sheets for this EUA assay can be fo und at the following links: For Healthcare Providers: https://www.fd a.gov/media/493621/download For Patients: https://www.fda.gov/media/ 577253/download Specimen Anatomical Collection Method Collection Time Receive d Time (Source) Location / / Volume Laterality Varies 07/15/2021 8:56 AM 5:19 (Nasopharynx) CDT PM CDT Prasanna Bernal M.D. 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 PCP - General Internal Medicine 05/22/[address] [phone] documented as of this encounter
--- OUTSIDE RECORDS SUMMARY | 2022-05-21 11:17 | XMS_ITS | Encounter Summary ---
:1945 [address] Organization [facility] Address [address] [place] [address] Care Team Providers Name Role Phone Shayla Alford D.O. Primary Care Provider [phone] Reason for Visit Reason Comments Nurse Visit Bladder Cancer Appointment Request (Routine) - Closed Specialty Diagnoses / Procedures Referred By Contact Refer red To Contact Urology Referral ID Status Reason Start Date Expiration Date Visits Requ ested Visits Authorized [id number] Closed 07/23/2021 07/23/2022 1 1 Encounter Details Date Type Department Care Team Description 08/29/2021 Nurse Only Department of Urology Lea Morin Nu rse Visit; Bladder in Alicia Dixonkarissa will R.N. Cancer [address] [place] [address] [place], [place] [phone] Social History Tobacco Use Types Packs/Day Years [...] or relatives? How often do you attend restorationist or Never 2021 latter day services? Do you belong to any clubs or No 10/09/2021 organizations such as restorationist groups, unions, fraternal or athletic groups, or [...] have completed or the highest Martin, MEd, COUNCILMAN, CAYDEN) degree you have received? Sex Assigned at Date Recorded Male 05/21/2018 2:34 PM CDT documented as of this encounter Last Filed Vital Signs Vital Sign Reading Time Taken Comments Blood Pressure - - Pulse 51 08/29/2021 10:34 AM SWITCHBOARD WIRER Temperature - - Respiratory Rate - - Oxygen Saturation 95% 08/29/2021 10:34 AM SWITCHBOARD WIRER room a ir Inhaled Oxygen Concentration - - Weight - - Height - - Body Mass Index - - documented in this encounter Progress Notes Lea Morin, R.N. - 08/29/2021 9:00 AM CST Bladder Instillation 1. This is number 3 of 6. 2. Prior to the procedure [...] instructions 11. Next treatment/follow up scheduled for: 09/05/21 Jonnathan Costa here for BCG. no new [...] the next BCG treatment. Lea Morin R.N. 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 HAZARDOUS - Handle with care. Use with CSTD Bladder Instillation Kit. documented in this encounter Additional Health Concerns Assessment Noted Time PHQ-9 Depression Total Score: 18 04/28/2018 11:27 AM C DT documented as of this encounter Care Teams Plaster Model And Mold Maker Relationship Specialty Start Date End Date Shayla Alford D.O. PCP - General Internal Medicine 05/22/[address] [phone] documented as of this encounter
--- OUTSIDE RECORDS SUMMARY | 2022-05-21 11:17 | XMS_ITS | Encounter Summary ---
:1945 Author Organization [facility] Address [address] [place] [address] Care Team Providers Name Role Phone Shayla Alford D.O. Primary Care Provider [phone] Reason for Visit Reason Comments Communication Encounter Details Date Type Department Care Team Description 07/11/2021 Clinical Communication Department of Urology Lea Morin Communication in [facility] C, R.N. [address] [place] [phone] Social History Tobacco Use [...] do you attend mandaen or Never 2021 jainism services? Do you belong to any clubs [...] have completed or the highest Martin, MEd, COVER MARKER, CAYDEN) degree you have received? Sex Assigned at Date Recorded Male 05/21/2018 2:34 PM CDT documented as of this encounter Miscellaneous Notes Telephone Encounter - Lea Morin R.N. - 07/11/2021 1:30 PM CDT Patient informed Dr. Bernal request to hold Plavix at least 5 days prior to surgery, verbalized understanding. Telephone Encounter - Lea Morin R.N. - 07/11/2021 11:39 AM CDT Patient was called with CT results, verbalized understanding. Patient inquired when to quit taking his Plavix prior to urology surgery. Will forward to Dr. Bernal to review, will call patient back upon response. documented in this encounter Plan of Treatment Not on filedocumented as of this encounter Visit Diagnoses Not on filedocumented in this encounter Additional Health Concerns Assessment Noted Time PHQ-9 Depression Total Score: 18 04/28/2018 11:27 AM C DT documented as of this encounter Care Teams Pv Design And Installation Technician Relationship Specialty Start Date End Date Shayla Alford D.O. PCP - General Internal Medicine 05/22/[address] [phone] documented as of this encounter
--- OUTSIDE RECORDS SUMMARY | 2022-05-21 11:18 | XMS_ITS | Encounter Summary ---
:1945 Author Organization [facility] Address [address] [place] [address] Care Team Providers Name Role Phone Shayla Alford D.O. Primary Care Provider [phone] Encounter Details Date Type Department Care Team Description 07/11/2021 Hospital Encounter Department of [facility] [place] Leon Preop erative Exam; Radiology in S, P.A.-[facility]. Chronic Obstructive Pulmonary Disease (H CC) [place], [place] [address] [place] [phone] Social History Tobacco Use [...] you attend latter day or Never 2021 islam services? Do you [...] have completed or the highest Martin, MEd, INJECTION MOLDING TECHNICIAN, CAYDEN) degree you have received? Sex [...] (FREESTYLE SOFYA) times a day. Use to [facility] scan Sfoya sensor 5 times daily and as needed. [...] PEN NEEDLE, DIABETIC Yani Fine 30 0 [facility] disposable needles. For use with Insulin Pens, 4 times daily SYRINGE-NEEDLE,INSULIN,0 0 .5 ML (INSULIN SYRINGE [facility]) traZODone (DESYREL) 100 Take 0.5 [...] Procedure Name Priority Date/Time Associated Comments Diagnosis DX CHEST AP OR PA RAD - Routine 07/11/2021 10:29 Preoperative Exam Results for this AND LATERAL 2 (most inpatients AM CDT Chronic Obstructive pro cedure are in VIEWS and all Pulmonary Disease the result s outpatients) (HCC) section. documented in this encounter Results DX Chest AP or PA and Lateral 2 Views (07/11/2021 10:29 AM CDT) Anatomical Region Laterality Modality Chest, Thoracic RST LOS, Thoracic ARZ LOS, Thoracic N/A Digital Radiography FLA LOS Specimen (Source) Anatomical Collection Method Collection Time Re ceived Time Location / / Volume Laterality 07/11/2021 10:40 AM CDT Impressions 07/11/2021 10:42 AM CDT Comparison 03/02/21. Heart size normal. Left upper lung is clear. Decreased small/moderate right pleural e ffusion. Decreased right basilar partial atelectasis. Narrative 07/11/2021 10:42 AM CDT EXAM: DX CHEST AP OR PA AND LATERAL 2 VIEWS Procedure Note Frnaklyn Holm M.D. - 07/11/2021 EXAM: DX CHEST AP OR PA AND LATERAL 2 EWS IMPRESSION: Comparison 03/02/21. Heart size normal. Le ft upper lung is clear. Decreased small/moderate right pleural e ffusion. Decreased right basilar partial atelectasis. Bandar De Leon P.A.-C. IMG DIAGNOSTIC IMAGING PROCE DURES documented in this encounter Visit Diagnoses Diagnosis Preoperative Exam Chronic Obstructive Pulmonary Disease (H CC) documented in this encounter Additional Health Concerns Assessment Noted Time PHQ-9 Depression Total Score: 18 04/28/2018 11:27 AM C DT documented as of this encounter Care Teams Meat Processing Center Manager Relationship Specialty Start Date End Date Shayal Alford D.O. PCP - General Internal Medicine 05/22/[address] [phone] documented as of this encounter
--- OUTSIDE RECORDS SUMMARY | 2022-05-21 11:18 | XMS_ITS | Encounter Summary ---
:[address] [facility] Address [address] [place] [address] Care Team Providers Name Role Phone Shayla Alford D.O. Primary Care Provider [phone] Reason for Referral Outpatient (Routine) - Closed Specialty Diagnoses / Procedures Referred By Contact Refer anna To Contact Urology Prasanna Bernal M.D. 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 [facility] Region Procedures CT Urogram without and with IV Contrast [address] [place] [address] Referral ID Status Reason Start Date Expiration Date Visits Requ ested Visits Authorized [id number] Closed 07/02/2021 07/02/2022 1 1 Reason for Visit Outpatient (Routine) - Closed Specialty Diagnoses / Procedures Referred By Contact Refer red To Contact Diagnoses Personal History Of Malignant Neoplasm Of Bladder Prasanna Bernal M.D. [facility] Region Procedures Cystoscopy (specific provider) [address] [place] [address] Referral ID Status Reason Start Date Expiration Date Visits Requ ested Visits Authorized [id number] Closed 06/12/2020 06/12/2021 1 1 Encounter Details Date Type Department Care Team Description 07/02/2021 Procedure visit Department of Urology Prasanna Bernal, Malignant Neoplasm Of in [place] Bladder Posterior Wall [place] [address] ([facility]) [address] [place] [phone] Social History Tobacco Use Types Packs/Day Years [...] or relatives? How often do you attend gnosticism or Never 2021 mormonism services? Do you belong to any clubs or No 10/09/2021 organizations such as gnosticism groups, unions, fraternal or athletic groups, or [...] have completed or the highest Martin, MEd, ROLLER HELPER, CAYDEN) degree you have received? Sex Assigned at Date Recorded Male 05/21/2018 2:34 PM CDT documented as of this encounter Last Filed Vital Signs Vital Sign Reading Time Taken Comments Blood Pressure - - Pulse 54 07/02/2021 9:04 AM CDT Temperature 36.3 ??C (97.3 ??F) 07/02/2021 9:04 AM CDT Respiratory Rate - - Oxygen Saturation 98% 07/02/2021 9:04 AM CDT room ai r Inhaled Oxygen Concentration - - Weight - - Height - - Body Mass Index - - documented in this encounter Procedure Notes Prasanna Bernal M.D. - 07/02/2021 9:30 AM CDT CHIEF COMPLAINT / REASON FOR VISIT ?? CYSTOSCOPY REPORT ? INDICATION Bladder cancer. ?? 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 Urine cytology collected on June 18, 2021 was atypical.? The patient is experiencing increased frequency, urgency [...] there is a recurrence that measures approximately 4x 5 cm. Neither ureteral orifice is involved. The trigone is not involved. This is a large patch, visually suspicious of low-grade papillary transitional cell carcinoma. ?? COMMENTS The procedure was well tolerated by [...] be related to the recurrence ofhis bladder cancer.? PLAN: 1. We should repeat staging to include a CT urogram. This will allow was to evaluate for metastatic disease and evaluate the upper urinary tract. Creatinine is ordered today. 2. Anticipate transurethral resection of the prostate. We will make arrangements for July 18. He will need preoperative clearance. Urine culture will be obtained 1 week early. COVID screening be ordered. He will need a bung driver. He will need to be NPO. Electronically signed by: Prasanna Bernal M.D. 07/02/21 9:41 AM CDT documented in this encounter Plan of Treatment Scheduled Referrals Name Type Priority Associated Diagnoses Order [facility] Urology office Outpatient Referral Routine Expect ed: visit (clinic) 07/23/2021 (Approximate), Expires: 07/02/2024 documented as of this encounter Results SARS Coronavirus-2 RNA, V Asymptomatic (07/15/2021 8:56 AM CDT) [facility] Method Time Signature SARS-CoV-2 Swab, 07/15/2021 MKTO [...] pe rformed using the Aptima SARS-CoV-2 assay ([employer] on the [employer] tem under emergency use authorization (EUA) by the U.S. Food and Drug Administ ration. Fact sheets for this EUA assay can be fo und at the following links: For Healthcare Providers: https://www.fd a.gov/media/241132/download For Patients: https://www.fda.gov/media/ 534919/download Specimen Anatomical Collection Method Collection Time Receive d Time (Source) Location / / Volume Laterality Varies 07/15/2021 8:56 AM 5:19 (Nasopharynx) CDT PM CDT Prasanna Bernal M.D. LAB MICROBIOLOGY - GENERAL O RDERABLES Performing Organization Address City/State/ZIP Code Phon e Number [facility]- [address] [place] [address] [place] [address] Urogram without and with IV Contrast (07/10/2021 4:37 PM CDT) Anatomical Region Laterality Modality Abdomen, Pelvis, Abdominal RST LOS, Abdominal ARZ LOS, N/A Computed Tomography Abdominal FLA LOS Specimen (Source) Anatomical Collection Method Collection Time Re ceived Time Location / / Volume Laterality 07/11/2021 8:04 AM CDT Impressions 07/11/2021 8:21 AM CDT 1. ??Recurrent bladder carcinoma. 2. ??Stable multiple bilateral renal cys ts. 3. ??Left renal inferior pole scarring. 4. ??Otherwise negative bilateral upper tracts. 5. ??Moderate prostate enlargement. 6. ??Negative for metastatic disease. 7. ??Chronic calcific pancreatitis. 8. ??Moderate right pleural effusion. Narrative 07/11/2021 8:21 AM CDT EXAM: CT UROGRAM WITHOUT AND WITH IV CONTRAST COMPARISON: Abdomen MRI 01/19/21. CT 10/11. FINDINGS: Right system: Right kidney and ureter benson ve no stones. No hydronephrosis. No suspicious right kidney masses. Stable m ultiple hemorrhagic renal cysts, largest measuring 2.4 cm of the superior pole. S table multiple simple simple cysts, largest measuring 3.7 cm of the inferior pole. No filling defects of renal pelvis or ureter. Left system: Left kidney and ureter have no stones. No hydronephrosis. No suspicious left kidney masses. Stable mu ltiple subcentimeter renal cysts. Cortical defect/scarring of inferior nathalia e left kidney. No filling defects of renal pelvis or ureter. Bladder: There is irregular polypoid uro thelial thickening along the posterior bladder wall over an area measuring 4 x 3 cm that is compatible with recurrent bladder carcinoma (series 17 image 225, series 20 image 118). Nothing to suggest extravesicular extension. Prostate: Moderate prostate enlargement with diameter 6.5 cm. Non-urogram findings: No suspicious lymp h nodes. No suspicious liver lesions. Stable 1 cm left adrenal nodule since CT 05/03/16 is compatible with adenoma. Several findings of chronic calcific dahl creatitis are unchanged and described in detail on abdomen MRI 01/19/21. Small hia ching hernia. Colonic diverticulosis without acute diverticulitis. Decreased moderate right pleural effusion with associated right basilar atelectasis. An terior abdominal wall subcutaneous infiltration is probably from medication injection. Small fat-containing umbilical hernia. Diffuse arterial calci fications including coronary artery calcifications. Mitral annular calcifica tions. Unchanged 18 mm calcified splenic artery aneurysm (series 2 image 167). Deirdre mbar spondylosis. Otherwise negative. Procedure Note Franklyn Holm M.D. - 07/11/2021 EXAM: CT UROGRAM WITHOUT AND WITH IV CON TRAST COMPARISON: Abdomen MRI 01/19/21. CT 10/11. FINDINGS: Right system: Right kidney and ureter benson ve no stones. No hydronephrosis. No suspicious right kidney masses. Stable m ultiple hemorrhagic renal cysts, largest measuring 2.4 cm of the superior pole. S table multiple simple simple cysts, largest measuring 3.7 cm of the inferior pole. No filling defects of renal pelvis or ureter. Left system: Left kidney and ureter have no stones. No hydronephrosis. No suspicious left kidney masses. Stable mu ltiple subcentimeter renal cysts. Cortical defect/scarring of inferior nathalia e left kidney. No filling defects of renal pelvis or ureter. Bladder: There is irregular polypoid uro thelial thickening along the posterior bladder wall over an area measuring 4 x 3 cm that is compatible with recurrent bladder carcinoma (series 17 image 225, series 20 image 118). Nothing to suggest extravesicular extension. Prostate: Moderate prostate enlargement with diameter 6.5 cm. Non-urogram findings: No suspicious lymp h nodes. No suspicious liver lesions. Stable 1 cm left adrenal nodule since CT 05/03/16 is compatible with adenoma. Several findings of chronic calcific dahl creatitis are unchanged and described in detail on abdomen MRI 01/19/21. Small hia ching hernia. Colonic diverticulosis without acute diverticulitis. Decreased moderate right pleural effusion with associated right basilar atelectasis. An terior abdominal wall subcutaneous infiltration is probably from medication injection. Small fat-containing umbilical hernia. Diffuse arterial calci fications including coronary artery calcifications. Mitral annular calcifica tions. Unchanged 18 mm calcified splenic artery aneurysm (series 2 image 167). Deirdre mbar spondylosis. Otherwise negative. IMPRESSION: 1. Recurrent bladder carcinoma. 2. Stable multiple bilateral renal cysts . 3. Left renal inferior pole scarring. 4. Otherwise negative bilateral upper tr acts. 5. Moderate prostate enlargement. 6. Negative for metastatic disease. 7. Chronic calcific pancreatitis. 8. Moderate right pleural effusion. Prasanna Bernal M.D. IMG CT PROCEDURES (ABNORMAL) Bacterial Culture, Aerobic + Susc, Urine (07/09/2021 9:54 AM CDT) Analysis Performed At Patho logist Time Signature Urine Culture Mixed 07/12/2021 MKTO surekha. (A) 8:07 AM CDT Specimen Anatomical Collection Method Collection Time Receive d Time (Source) Location / / Volume Laterality Urine (Urine, 07/09/2021 9:54 AM 07/09/20 2:32 Midstream) CDT PM CDT Comment: Specimen Source Site: Urine Prasanna Bernal M.D. LAB MICROBIOLOGY - GENERAL O RDERABLES Performing Organization Address City/State/ZIP Code Phon e Number [facility]- [facility] [place] [address] [facility] [place] [address] System [address] (ABNORMAL) Creatinine with Estimated GFR (07/02/2021 10:24 AM CDT) P athologist Signature Creatinine 1.51 (H) 0.74 - 1.35 07/02/2021 [facility] mg/dL 11:17 AM CDT Comment: Testing performed on serum eGFR-Black/ 51 (L) >=60 mL/min/BSA 12/2020 11:17 AM CDT [facility] Comment: ----ADDITIONAL INFORMATION---- Estimated GFR calculated using the 2009 CKD_EPI creatinine equation. eGFR Non-Black/ 44 (L) >=60 mL/min/BSA 07/02/2021 11:17 AM CDT [facility] [place] Comment: ----ADDITIONAL INFORMATION---- Estimated GFR calculated using the 2009 CKD_EPI creatinine equation. Specimen Anatomical Collection Method Collection Time Receive d Time (Source) Location / / Volume Laterality Blood (Blood, 07/02/2021 10:24 07/02/2021 Venous) AM CDT 10:25 AM CDT Prasanna Bernal M.D. LAB BLOOD ADD-ON Performing Organization Address City/State/ZIP Code Phon e Number 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 PCP - General Internal Medicine 05/22/[address] [phone] documented as of this encounter
--- OUTSIDE RECORDS SUMMARY | 2022-05-21 11:18 | XMS_ITS | Encounter Summary ---
:1945 Author Organization [facility] Address [address] [place] [address] Care Team Providers Name Role Phone Shayla Alford D.O. Primary Care Provider [phone] Encounter Details Date Type Department Care Team Description 07/10/2021 Orders Only Department of Internal [place] Medicine in [place], [place], [place].Jason Wade [place] [address] [place] [phone] (Wo rk) Social History Tobacco Use Types [...] do you attend scientology or Never 2021 congregation services? Do you [...] have completed or the highest Martin, MEd, RECEIVING ASSOCIATE STORE, CAYDEN) degree you have received? Sex Assigned at Date Recorded Male 05/21/2018 2:34 PM CDT documented as of this encounter Plan of Treatment Not on filedocumented as of this encounter Visit Diagnoses Not on filedocumented in this encounter Additional Health Concerns Assessment Noted Time PHQ-9 Depression Total Score: 18 04/28/2018 11:27 AM C DT documented as of this encounter Care Teams Bridal Consultant Relationship Specialty Start Date End Date Shayla Alford D.O. PCP - General Internal Medicine 05/22/[address] [phone] documented as of this encounter
--- OUTSIDE RECORDS SUMMARY | 2022-05-21 11:18 | XMS_ITS | Encounter Summary ---
:1945 Author Organization [facility] Address [address] [place] [address] Care Team Providers Name Role Phone Shayla Alford D.O. Primary Care Provider [phone] Reason for Visit Reason Comments SURG DATE Needs pre-op note! Encounter Details Date Type Department Care Team Description 07/02/2021 Clinical Communication Department of [place], SURG DATE; Needs Urology in [place] pre-op note! [place], [place] [address] [place] [phone] Social History Tobacco Use Types Packs/Day [...] you attend latter day or Never 2021 jehovah's witness services? Do you belong to any clubs [...] have completed or the highest Martin, MEd, NETWORKING ADMINISTRATOR, CAYDEN) degree you have received? Sex Assigned at Date Recorded Male 05/21/2018 2:34 PM CDT documented as of this encounter Miscellaneous Notes Telephone Encounter - Jacquie Hamilton, L.P.N. - 07/10/2021 8:31 AM CDT SUBJECTIVE CHIEF COMPLAINT / REASON FOR CALL SURG DATE and Needs pre-op note! Information Discussed Patient given advisement from provider per dr reid direction PLAN Disposition/Recommendation: patient transferred to the appointment desk Information/Education: patient/caller able to teach back Caller agreeable to plan of care: yes The following references were used: provider dr reid Telephone Encounter - Shayla Alford D.O. - 07/10/2021 8:10 AM CDT I didn't see him for surgery clearance . This was a diabetic follow up and we didn't know about the need for surgery at the time. Please schedule an appropriate preop with first available provider. Electronically signed by: Shayla Alford D.O. 07/10/21 8:11 AM CDT Telephone Encounter - Justina Wilkins - 07/09/2021 2:[address] Reid, [facility] is looking for your notes on the 06-19-21 visit clearing him for a URO procedure. If you are not willing/ or able to clear this patient, please let us know AGUILAR so we can get him in for a pre-op visit. Thanks. Telephone Encounter - Rosa Garcia - 07/02/2021 10:10 AM CDT SURGEON: DR. LOCKWOOD PRE-OP: DR. ALFORD 06-19-21 (patient saw you on 06-19-21, can you addend your notes to clear patient for surg. If you feel patient can be cleared. If not please notify surg. Scheduling another appt is needed for a pre-op. Thank you) DATE OF SUR07-18-21 PROCEDURE 1.) TRANSURETHERAL RESECTION OF BLADDER TUMOR 2.)RANDOM BLADDER BIOPSIES 3.)MITOMYCIN-C PLACEMENT ANESTHESIA: GENERAL COVID TEST: 07-15 Hospital will call with time documented in this encounter Plan of Treatment Not on filedocumented as of this encounter Visit Diagnoses Not on filedocumented in this encounter Additional Health Concerns Assessment Noted Time PHQ-9 Depression Total Score: 18 04/28/2018 11:27 AM C DT documented as of this encounter Care Teams Fence Maker Relationship Specialty Start Date End Date Shayla Alford D.O. PCP - General Internal Medicine 05/22/20 [address] [place] [address] documented as of this encounter
--- OUTSIDE RECORDS SUMMARY | 2022-05-21 11:18 | XMS_ITS | Encounter Summary ---
:1945 Author Organization [facility] Address [address] [place] [address] Care Team Providers Name Role Phone Shayla Alford D.O. Primary Care Provider [phone] Reason for Referral Outpatient (Routine) - Closed Specialty Diagnoses / Procedures Referred By Contact Refer red To Contact [facility] Internal ARMAAN Alford SE DLolis [address] [place] [phone] Referral ID Status Reason Start Date Expiration Date Visits Requ ested Visits Authorized [id number] Closed 06/19/2021 06/19/2022 1 1 Scheduling Instructions Schedule one hour for preop Colonoscopy plus follow up CHF, CKD , diabetes , and HTN Reason for Visit Reason Comments Follow-up Outpatient (Routine) - Closed Specialty Diagnoses / Procedures Referred By Contact Refer red To Contact [facility] Internal ARMAAN Alford SE DMauroOMauro [address] [place] [phone] Referral ID Status Reason Start Date Expiration Date Visits Requ ested Visits Authorized [id number] Closed 05/23/2021 05/23/2022 1 1 Encounter Details Date Type Department Care Team Description 06/19/2021 Office Visit Department of [place] Diabetes Me coxitus Type 2 Hyperglycemia (HCC) (Primary Dx); Internal Medicine in Shayla D. O. Hypertension Essential Primary; [place], [place] [address] Chronic Systolic (Congestive) Heart Fail ure (HCC); [address] [place], [place] Chronic Kidney Disease (CKD) , Stage 3b Glomerular Filtration Rate (GFR) 30 To 44 (HCC); [place] [address] Hypothyroidism; [phone] Hyperlipidemia Social History Tobacco Use Types Packs/Day Years [...] do you attend mormonism or Never 2021 hinduism services? Do you [...] for the very basics like Not h nelad at all 10/09/2021 food, housing, medical care, [...] place to sleep or slept in a retirement (including now)? Education Answer Date Recorded What is the highest level of school Master's degree (e.g., M A, MS, 03/23/2019 you have completed or the highest Martin, Sirena, WATER MANGLE TENDER, CAYDEN) degree you have received? Sex Assigned at Date Recorded Male 05/21/2018 2:34 PM CDT documented as of this encounter Last Filed Vital Signs Vital Sign Reading Time Taken Comments Blood Pressure 120/69 06/19/2021 8:49 AM average of 3 CDT Pulse 57 06/19/2021 8:49 AM CDT Temperature 36.3 ??C (97.3 ??F) 06/19/2021 8:49 AM CDT Respiratory Rate - - Oxygen Saturation - - Inhaled Oxygen Concentration - - Weight 98.3 kg (216 lb 11.4 06/19/2021 8:49 AM oz) CDT Height - - Body Mass Index 27.23 05/23/2021 1:15 PM CDT documented in this encounter Progress Notes Shayla Alford D.O. - 06/19/2021 9:00 AM CDT SUBJECTIVE CHIEF COMPLAINT / REASON FOR VISIT Jonnathan Costa is a 75 y.o. male who presents for evaluation of Follow-up. 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 He states that his glucose this morning was 150. At bedtime it is in the low 200s. We discussed dietary changes exercise and provided counseling. The patient has changed his lifestyle, and has been able to lose some weight, he is limiting sugar and salt intake. He was congratulated on his improvement. I anticipate his next A1c will likely be below 8. We will order that before our next visit. He will continue on his current medication regiment to include 25 mg of Jardiance, 10-30 units subcu 3 times daily with sliding scale of insulin NovoLog. And 33 units of Lantus. He denies any significant lows, no shortness of breath or chest pain. His blood pressure is within goal today 120/69. He appears to be volume stable with no sign E decompensation or heart failure. His dry weight is 98 kilos.He will continue on his regiment of torsemide [...] point ROS is otherwise negative OBJECTIVE BP 120/69 (BP Location: Right arm, Patient Position: Sitting, Cuff Size: Regular) Comment: average of 3 Pulse (!) 57 Temp 36.3 ??C (Temporal) Wt 98.3 kg BMI 27.23 kg/m?? PHYSICAL EXAM General: Patient alert and [...] rhythm. No murmurs or S3, S4 auscultated. Abdomen:Soft, nondistended and nontender to palpation without palpable masses or organomegaly. Normoactive bowel sounds. Musculoskeletal: Gait normal. Normal movement of all [...] Rate (GFR) 30 To 44 ([facility]) #5 Hypothyroidism #6 Hyperlipidemia In regards to type 2 diabetes, the patient states that his blood sugar levels have improved. Unfortunately, he forgot to bring his meter with him today. [facility] he sees an law researcher. He states that his glucose this morning was 150. At bedtime it is in the low 200s. We discussed dietary changes exercise and provided counseling. The patient has changed his lifestyle, and has been able to lose some weight, he is limiting sugar and salt intake. He was congratulated on his improvement. I anticipate his next A1c will likely be below 8. We will order that before our next visit. He will continue on his current medication regiment to include 25 mg of Jardiance, 10-30 units subcu 3 times daily with sliding scale of insulin NovoLog. And 33 units of Lantus. He denies any significant lows, no shortness of breath or chest pain. His blood pressure is within goal today 120/69. He appears to be volume stable with no sign E decompensation or heart failure. His dry weight is 98 kilos.He will continue on his regiment of torsemide 40 mg every morning, metoprolol 25 mg daily, as well as 25 mg of losartan. He is on statin therapy with Lipitor 80 mg daily. The patient has a scheduled trip to [address] [place] [address]. We discussed the importance of following his [...] denies any melena hematochezia or new symptoms. - metoprolol succinate (TOPROL-XL) 25 mg 24 hr tablet; Take 1 tablet (25 mg total) by mouth daily. Do not crush or chew., Starting Fri06/19/2021, Until Fri06/19/2022, Print - Basic Metabolic Panel; Future; Expected date: 07/19/2021 (Before next visit) - Hemoglon A1c; Future; Expected date: 07/19/2021i Other orders - [facility] office visit (clinic) - [facility] Internal Medicine office visit (clinic); Future; Expected date: 07/19/2021 Symptoms: if symptoms are getting worse or patient develops fever/chills or new symptoms: advise patient to come back and see a provider immediately. PATIENT EDUCATION Patient Education: Ready to learn, no apparent learning barriers were identified; learning preferences include listening. Explained diagnosis and treatment plan; patient expressed understanding of the content. Time spent 35 minutes Electronically signed by: Shayla Alford D.O. 06/19/21 12:14 PM CDT documented in this encounter Plan of Treatment Scheduled Referrals Name Type Priority Associated Diagnoses Order S [facility] Internal Outpatient Referral Routine Ex pected: Medicine office 07/19/2021 visit (clinic) (Approximate) , Expires: 06/19/2024 documented as of this encounter Results (ABNORMAL) Basic Metabolic Panel [...] eGFR-Black/Afri 36 (L) >=60 07/30/2021 OW[facility] can [place] mL/min/BSA 10:24 AM CDT Comment: ----ADDITIONAL INFORMATION---- Estimated GFR calculated using the 2009 CKD_EPI creatinine equation. eGFR Non-Black/ 31 (L) >=60 mL/min/BSA 07/30/2021 10:24 AM CDT OW[facility] [place] Comment: ----ADDITIONAL INFORMATION---- Estimated GFR calculated using [...] Organization Address City/State/ZIP Code Phon e Number [facility]- [address] [place] [address] [place] [address] System in [place] [address] (ABNORMAL) Hemoglobin A1c (07/30/2021 9:50 AM CDT) [...] Organization Address City/State/ZIP Code Phon e Number [facility]- [address] [place] [address] [place] [address] System in [place] [address] [facility] documented in this encounter Visit Diagnoses Diagnosis Diabetes Mellitus Type 2 Hyperglycemia ( HCC) - Primary Hypertension Essential Primary Chronic Systolic (Congestive) Heart Fail ure (HCC) Chronic Kidney Disease (CKD), Stage 3b G lomerular Filtration Rate (GFR) 30 To 44 (HCC) Hypothyroidism Hyperlipidemia documented in this encounter Additional Health Concerns Assessment Noted Time PHQ-9 Depression Total Score: 18 04/28/2018 11:27 AM C DT documented as of this encounter Care Teams Craps Dealer Relationship Specialty Start Date End Date Shayla Alford D.O. PCP - General Internal Medicine 05/22/[address] [place] [address] documented as of this encounter
--- OUTSIDE RECORDS SUMMARY | 2022-05-21 11:18 | XMS_ITS | Encounter Summary ---
:1945 Author Organization [facility] Address [address] [place] [address] Care Team Providers Name Role Phone Shayla Alford D.O. Primary Care Provider [phone] Reason for Visit Reason Onset Date Comments Complex Care Coordination 07/01/2021June Esha santillan Encounter Details Date Type Department Care Team Description 07/01/2021 Remote Monitoring Remote Patient BatistaSushma Complex Care Monitoring [address] [facility] Coordination (June [address] [place], [place] Billing ) [address] [facility] [address] [place], [place] [phone] (Work) Social History Tobacco Use Types Packs/Day [...] or relatives? How often do you attend yarsanism or Never 2021 mu-ism services? Do you belong to any clubs or No 10/09/2021 organizations such as yarsanism groups, unions, fraternal or athletic groups, or [...] place to sleep or slept in a assisted (including now)? Education Answer Date Recorded What is the highest level of school Master's degree (e.g., M [place], MS, 03/23/2019 you have completed or the highest Martin, MEd, DELIVERY TABLE FEEDER, CAYDEN) degree you have received? Sex [...] as of this encounter Care Teams Airplane Navigator Relationship Specialty Start Date End Date Shayla Alford D.O. PCP - General Internal Medicine 05/22/[address] [phone] documented as of this encounter
--- OUTSIDE RECORDS SUMMARY | 2022-05-21 11:18 | XMS_ITS | Encounter Summary ---
:1945 Author Organization [facility] Address [address] [place] [address] Care Team Providers Name Role Phone Shayla Alford D.O. 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 Encounter Details Date Type Department Care Team Description 07/05/2021 Remote Monitoring Remote Patient Sayra Rogers Grad uation (Patient Monitoring R, B.S. has graduated from [place] [address] the Remote [address] [place] [address] (Work) Monitoring program.) [place] [address] Social History Tobacco Use Types Packs/Day Years [...] do you attend advent or Never 2021 protestant services? Do you belong to any clubs or No 10/09/2021 organizations such as advent groups, unions, fraternal or athletic groups, or [...] have completed or the highest Martin, MEd, EXECUTIVE DIRECTOR OF MARKETING, CAYDEN) degree you have received? Sex Assigned at Date Recorded Male 05/21/2018 2:34 PM CDT documented as of this encounter Plan of Treatment Not on filedocumented as of this encounter Visit Diagnoses Not on filedocumented in this encounter Additional Health Concerns Assessment Noted Time PHQ-9 Depression Total Score: 18 04/28/2018 11:27 AM C DT documented as of this encounter Care Teams Sub Prior Relationship Specialty Start Date End Date Shayla Alford D.O. PCP - General Internal Medicine 05/22/20 [address] [place] [address] documented as of this encounter
--- OUTSIDE RECORDS SUMMARY | 2022-05-21 11:18 | XMS_ITS | Encounter Summary ---
:1945 Author Organization [facility] Address [address] [place] [address] Care Team Providers Name Role Phone Shayla Alford D.O. Primary Care Provider [phone] Encounter Details Date Type Department Care Team Description 06/18/2021 Hospital Encounter Department of Dolores, Personal History Of Laboratory Medicine Pato Mims Malignant Neoplasm Of in [place], [address] [facility] [address] [place] [address] Social History Tobacco Use [...] do you attend worship or Never 2021 yazdanism services? Do you [...] have completed or the highest Martin, MEd, TILE SORTER, CAYDEN) degree you have received? Sex Assigned [...] budesonide-formoteroL Inhale 2 puffs 2 1 Inhaler 06/30/20 20 (SYMBICORT) 160-4.5 (two) times a day. mcg/actuation Start at 1 puff inhalerIndications: twice daily x 4 Asthma Extrinsic weeks, then 2 puffs Moderate (HCC) twice daily if tolerated. cholecalciferol, vitamin Take 1,000 Units by 0 D3, 25 mcg (1,000 Unit) mouth daily. tablet clopidogreL (PLAVIX) 75 Take 1 tablet by 0 2015 mg tablet mouth daily. escitalopram (LEXAPRO) Take 1 tablet (10 mg 30 tablet 11 10 mg tablet total) by mouth daily. flash glucose scanning 1 each 5 (five) 1 each 0 03/02/20 21 reader (FREESTYLE SOFYA) times a day. Use to misc scan Sofya sensor 5 times daily and as needed. E11.65 Lifetime use. flash glucose sensor 1 each every 14 6 kit 3 03/02/2021 (FREESTYLE SOFYA) kit (fourteen) days. Change sensor every 14 days E11.65 E11.40 Lifetime use insulin aspart U-100 Inject 11 Units 0 02/22/2021 (NovoLOG FlexPen) 100 under the skin 3 unit/mL (3 mL) injection (three) times a day with meals. levothyroxine Take 1 tablet (100 90 tablet 3 01/30/2021 (SYNTHROID, LEVOTHROID) mcg total) by mouth 100 mcg tablet daily. PEN NEEDLE, DIABETIC Yani Fine 30 0 [facility] disposable needles. For use with Insulin Pens, 4 times daily SYRINGE-NEEDLE,INSULIN,0 0 .5 ML (INSULIN SYRINGE [facility]) budesonide-formoteroL Inhale 2 puffs daily 0 10/0 10/201911/19/2021 (SYMBICORT) 160-4.5 as needed. mcg/actuation inhaler empagliflozin Take 1 tablet (25 mg 90 tablet 3 06/14/2021 1 (Jardiance) 25 mg total) by mouth tabletIndications: every morning before Diabetes Mellitus Type 2 breakfast. With Diabetic Neuropathy (HCC), Diabetes Mellitus Type 2 Hyperglycemia (HCC) gemfibroziL (LOPID) 600 Take 1 tablet by [...] 1,000 mg 24 hr tablet mouth daily. metoprolol succinate Take 1 tablet (25 mg 90 tablet 3 03/1406/19/2021 (TOPROL-XL) 25 mg 24 hr total) by mouth tabletIndications: daily. Do not crush Hypertension Essential or chew. Primary torsemide (DEMADEX) 20 Take 2 tablets (40 180 tablet 3 05/1610/09/2021 mg tabletIndications: mg total) by mouth Hypertension Essential every morning before Primary breakfast. traZODone (DESYREL) 100 Take 0.5 tablets (50 30 tablet 1 07/09/2021 mg tablet mg total) by mouth at bedtime as needed for sleep. documented as of this encounter Plan of Treatment Not on filedocumented as of this encounter Procedures Procedure Name Priority Date/Time Associated Diagnosis Comme nts CYTOLOGY NON-PIANO AND ORGAN REFINISHER Routine 06/18/2021 9:08 AM Personal History O f Results for this (SCHEDULED) CDT Malignant Neoplasm procedure are in Of Bladder the results section. documented in this encounter Results (ABNORMAL) Cytology Non-PIANO AND ORGAN REFINISHER (Scheduled) (06/18/2021 9:08 AM CDT) Component Value Ref Test Analysis Performed At [facility] gist Range Method Time Signature 06/19/2021 [facility] (A) 9:32 AM CDT Fixative 50% reagent 06/19/2021 [facility] alcohol (A) 9:32 AM CDT Report Nereida CASSIUS Nichols. Ch.B. 06/19/2021 [facility] electronically 9:32 AM CDT signed by I verify that I have examined all relevant slides/materials for the specimen(s) and rendered or confirmed the diagnosis. (A) Gross Description Received 100 06/19/2021 [facility] ml of pale 9:32 AM CDT yellow alcohol fixed fluid. (A) Collection urine, clean 06/19/2021 [facility] Procedure catch (A) 9:32 AM CDT Source A. Urine, 06/19/2021 [facility] Clean Catch, 9:32 AM CDT voided (A) Clinical History [Z85.51] (A) 06/19/2021 [facility] 9:32 AM CDT Interpretation A. Urine, Clean Catch, voided (cytospin): Atypical 06/19/2021 [facility] urothelial cells. 9:32 AM CDT (A) Specimen Anatomical Collection Method Collection Time Receive d Time (Source) Location / / Volume Laterality Varies (Urine, 06/18/2021 9:08 AM 021 7:24 Clean Catch) CDT AM CDT Narrative This result has an attachment that is no t available. Prasanna Bernal M.D. LAB SURG PATH ORDERABLES Performing Organization Address City/State/ZIP Code Phon e Number [facility]- [address] [place], [place] [id number] [place] [address] CYTOLOGY [facility] [address] Cytology [address] [facility] documented in this encounter Visit Diagnoses Diagnosis Personal History Of Malignant Neoplasm O f Bladder documented in this encounter Additional Health Concerns Assessment Noted Time PHQ-9 Depression Total Score: 18 04/28/2018 11:27 AM C DT documented as of this encounter Care Teams Web Marketing Specialist Relationship Specialty Start Date End Date Shayla Alford D.O. PCP - General Internal Medicine 05/22/[address] [phone] documented as of this encounter
--- OUTSIDE RECORDS SUMMARY | 2022-05-21 11:18 | XMS_ITS | Encounter Summary ---
:1945 Author Organization [facility] Address [address] [place] [address] Care Team Providers Name Role Phone Shayla Alford D.O. 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 [facility] [place] [facility] Procedures CT Urogram without and with IV Contrast [address] [place] [phone] Referral ID Status Reason Start Date Expiration Date Visits Requ ested Visits Authorized [id number] Closed 07/02/2021 07/02/2022 1 1 Encounter Details Date Type Department Care Team Description 07/10/2021 Hospital Encounter Department of Cirilo Bernal Neoplasm Of Radiology in Pato Mims Bladder Posterior [place], [place] [address] ([facility]) [address] [place] [phone] Social History Tobacco Use Types Packs/Day Years [...] do you attend advent or Never 2021 jewish services? Do you belong to any clubs [...] completed or the highest Martin, MEd, SENIOR MEDIA DIRECTOR, CAYDEN) degree you have received? Sex [...] (FREESTYLE SOFYA) times a day. Use to [facility] scan Sofya sensor [...] Procedure Name Priority Date/Time Associated Comments Diagnosis CT UROGRAM RAD - Routine 07/10/2021 4:37 Malignant Results for this WITHOUT AND WITH (most inpatients PM CDT Neoplasm Of procedu re are in IV CONTRAST and all Bladder Posterior the result s outpatients) Wall (HCC) section. documented in this encounter Results CT Urogram without and with IV Contrast [...] effusion. Prasanna Bernal M.D. 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) documented in this encounter Administered Medications Inactive Administered Medications - up to 3 most recent administrations Medication Order MAR Action Action Date Dose Rate Site iohexoL 300 mg iodine/mL Given 07/10/2021 4:01 PM 140 mL Right Antecubital solution 150 mL CDT (OMNIPAQUE) 150 mL, intravenous, Once in imaging, contrast, Starting on Fri07/10/21 at 1607, For 1 dose, If administered oral then dilute in 900 mL water sodium chloride 0.9 % flush Given 07/10/2021 4:01 PM CDT 190 mL Right Antecubital 100 mL 100 mL, intravenous, Once, On Fri07/10/21 at 1615, For 1 dose sodium chloride 0.9 % Given 07/10/2021 3:55 PM CDT 10 mL Right Antecubital injection 10 mL 10 mL, intravenous, As needed, line care, Starting on Fri07/10/21 at 1607 documented in this encounter Additional Health Concerns Assessment Noted Time PHQ-9 Depression Total Score: 18 04/28/2018 11:27 AM C DT documented as of this encounter Care Teams Telecommunication Tower Technician Relationship Specialty Start Date End Date Shayla Alford D.O. PCP - General Internal Medicine 05/22/[address] [phone] documented as of this encounter
--- OUTSIDE RECORDS SUMMARY | 2022-05-21 11:18 | XMS_ITS | Encounter Summary ---
:1945 Author Organization [facility] Address [address] [place] [address] Care Team Providers Name Role Phone Shayla Alford D.O. Primary Care Provider [phone] Encounter Details Date Type Department Care Team Description 07/09/2021 Hospital Encounter Department of Cirilo Bernal Neoplasm Of Laboratory Medicine Pato Mims Bladder Posterior in [place], [address] ([facility] [address] [place] [phone] Social History Tobacco Use [...] do you attend protestant or Never 2021 uatsdin services? Do you [...] have completed or the highest Martin, MEd, PHYSICAL DIRECTOR, CAYDEN) degree you have received? Sex [...] (FREESTYLE SOFYA) times a day. Use to [facility] scan Sofya sensor 5 times daily and [...] PEN NEEDLE, DIABETIC Yani Fine 30 0 [facility] disposable needles. For use with Insulin Pens, 4 times daily SYRINGE-NEEDLE,INSULIN,0 0 .5 ML (INSULIN SYRINGE [facility]) traZODone (DESYREL) 100 Take 0.5 tablets (50 30 tablet 1 07/10/2022 mg tablet mg total) by mouth at bedtime as needed for sleep. budesonide-formoteroL Inhale 2 puffs daily 0 1010/201911/19/2021 [...] Associated Diagnosis Comme nts BACTERIAL CULTURE, Routine 07/09/2021 9:54 AM Malignant Neopla sm Results for this AEROBIC + SUSC, CDT Of Bladder Posterior proc edure are in [...] Laterality Urine (Urine, 07/09/2021 9:54 AM 07/09/20 21 2:32 Midstream) CDT PM CDT Comment: Specimen Source Site: Urine Prasanna Bernal M.D. 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 PCP - General Internal Medicine 05/22/[address] [place] [phone] documented as of this encounter
--- OUTSIDE RECORDS SUMMARY | 2022-05-21 11:18 | XMS_ITS | Encounter Summary ---
:1945 Author Organization [facility] Address [address] [place] [address] Care Team Providers Name Role Phone Shayla Alford D.O. Primary Care Provider Reason for Visit Reason Onset Date Comments Hypertension 06/06/2021 Symptom Assessment 06/06/2021 Encounter Details Date Type Department Care Team Description 06/06/2021 Remote Monitoring Remote Patient Prateek Padilla; Monitoring Donna Duque R.N. Symptom Assessment [facility] [address] [address] [facility] (Work) [place] [address] Social History Tobacco Use Types Packs/Day Years [...] or relatives? How often do you attend latter-day or Never 2021 spiritism services? Do you belong to any clubs or No 10/09/2021 organizations such as latter-day groups, unions, fraternal or athletic groups, or [...] place to sleep or slept in a intermediate (including now)? Education Answer Date Recorded What is the highest level of school Master's degree (e.g., M [place], [place], 03/23/2019 you have completed or the highest Martin, MEd, WET ROLLER, CAYDEN) degree you have received? Sex Assigned at Date Recorded Male 05/21/2018 2:34 PM CDT documented as of this encounter Progress Notes Donna Padilla R.N. - 06/06/2021 10:30 AM CDT Remote Patient Monitoring - RN Follow-up Call Primary reason for today's contact: Symptomology assessment Discussion Summary: Jonnathan Costa was called today to discuss his recent readings per Remote Patient Monitoring.HR 34, SpO2 98%, B/P 160/66, Weight 223.0. Patient reports feeling ok and offers no new complaints. He was asked to retest when had the next opportunity to do so. Patient has orders available for nursevisit to take in our equipment for a comparison reading. Planned PCP appointment 06/14/2021. Patient will take in our equipment at that time and do the comparison then. Medication Discussion: Patient denies difficulty taking medications or obtaining refills from the pharmacy. Patient denies medication changes since last conversation; no questions at this time related to current medication regimen. Patient Education: Patient and/or caregiver was instructed on: ?? Self-care plan - Daily monitoring for weight, blood pressure, heart rate, and oxygen. Patient/caregiver able to teach back Goals Discussed: The patient's goals were not discussed today. Next Steps: Patient agrees to continue daily vital sign monitoring and follow up call scheduled. Patient agreed to call Remote Patient Monitoring nurse with any questions or concerns in the interim. documented in this encounter Plan of Treatment Not on filedocumented as of this encounter Visit Diagnoses Not on filedocumented in this encounter Additional Health Concerns Assessment Noted Time PHQ-9 Depression Total Score: 18 04/28/2018 11:27 AM C DT documented as of this encounter Care Teams Construction Equipment Mechanic Helper Relationship Specialty Start Date End Date Shayla Alford D.O. PCP - General Internal Medicine 05/22/20 [address] [place] [phone] documented as of this encounter
--- OUTSIDE RECORDS SUMMARY | 2022-05-21 11:18 | XMS_ITS | Encounter Summary ---
:1945 Author Organization [facility] Address [address] [place] [address] Care Team Providers Name Role Phone Shayla Alford D.O. Primary Care Provider [phone] Encounter Details Date Type Department Care Team Description 07/09/2021 Clinical Communication Department of Internal Andrei Dejesus Medicine in [place], [place], [place].O Mauro [place] [address] [place] [phone] Social History Tobacco Use Types Packs/Day Years [...] do you attend presybeterian or Never 2021 druze services? Do you belong to any clubs [...] have completed or the highest Martin, MEd, TIPPLE WORKER, CAYDEN) degree you have received? Sex Assigned at Date Recorded Male 05/21/2018 2:34 PM CDT documented as of this encounter Miscellaneous Notes Telephone Encounter - Shayla Alford D.O. - 07/11/2021 12:39 PM CDT Please inform the patient that the Rxs are received and awaiting approval by their local provider. We did everything on our end. Thank you for calling Ai Electronically signed by: Shayla Alford D.O. 07/11/21 12:40 PM CDT Telephone Encounter - Ai Tellez L.P.NMauro - 07/10/2021 2:27 PM CDT [facility] The process for filling prescriptions using VA benefits at a local pharmacy requires prior authorization by a VA provider. These prescriptions are currently under review and when approved will be forwarded to the patient's local pharmacy for filling. Addendum Note - Jacquie Hamilton L.P.N. - 07/10/2021 8:48 AM CDT Addended by: JACQUIE HAMILTON on: 07/10/2021 08:48 AM Modules accepted: Orders Telephone Encounter - Shayla Alford D.O. - 07/10/2021 8:09 AM CDT Printed Electronically signed by: Shayla Alford D.O. 07/10/21 8:09 AM CDT Telephone Encounter - Kayli Rivera L.P.N. - 07/09/2021 3:14 PM CDT We will have you print them and we will fax them to [phone], as not sure why they are not receiving the prescriptions as it says it has been received. Telephone Encounter - Shayla Alford D.O. - 07/09/2021 11:23 AM CDT We can resend them if not received. Electronically signed by: Shayla Alford D.O. 07/09/21 11:23 AM CDT Telephone Encounter - Ai Tellez L.P.N. - 07/09/2021 10:03 AM CDT The patient requested to speak with a nurse regarding a request for his provider to call in two prescriptions to the [facility]. They are for Jardiance 25mg daily before breakfast and Trazadone 50mg at bedtime PRN. Advised that his provider is out of the office but will return tomorrow. 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 PCP - General Internal Medicine 05/22/[address] [phone] documented as of this encounter
--- OUTSIDE RECORDS SUMMARY | 2022-05-21 11:18 | XMS_ITS | Encounter Summary ---
:1945 Author Organization [facility] Address [address] [place] [address] Care Team Providers Name Role Phone Shayla Alford D.O. Primary Care Provider [phone] Reason for Visit Reason Onset Date Comments Hypertension 06/11/2021 Symptom Assessment 06/11/2021 Encounter Details Date Type Department Care Team Description 06/11/2021 Remote Monitoring Remote Patient Prateek Padilla; Monitoring Donna Duque R.N. Symptom Assessment [facility] [place] [address] [address] [facility] (Work) [place] [address] Social History Tobacco Use Types Packs/Day Years [...] or relatives? How often do you attend nondenominational or Never 2021 shinto services? Do you belong to any clubs or No 10/09/2021 organizations such as nondenominational groups, unions, fraternal or athletic groups, or [...] have completed or the highest Martin, MEd, PHYSIATRIST, CAYDEN) degree you have received? Sex Assigned at Date Recorded Male 05/21/2018 2:34 PM CDT documented as of this encounter Progress Notes Donna Pdailla R.N. - 06/11/2021 11:17 AM CDT Remote Patient Monitoring - RN Follow-up Call Primary reason for today's contact: Symptomology assessment Discussion Summary: Jonnathan Costa was called today with concerns of hypertension B/P 210/114. Patient did retestbut did not sent through tablet. Retest B/P 132/72. Patient denies any symptoms related to hypertension. Medication Discussion: Patient denies difficulty taking medications or obtaining refills from the pharmacy. Patient denies medication changes since last conversation; no questions at this time related to current medication regimen. Patient Education: Patient and/or caregiver was instructed on: ?? Self-care plan - Daily monitoring for weight, blood pressure, heart rate, and oxygen. Patient/caregiver able to teach back Next Steps: Patient agrees to continue daily [...] documented as of this encounter Care Teams Automatic Packer Operator Relationship Specialty Start Date End Date Shayla Alford D.O. PCP - General Internal Medicine 05/22/[address] [phone] documented as of this encounter
--- OUTSIDE RECORDS SUMMARY | 2022-05-21 11:18 | XMS_ITS | Encounter Summary ---
:1945 Author Organization [facility] Address [address] [place] [address] Care Team Providers Name Role Phone Shayla Alford D.O. Primary Care Provider [phone] Encounter Details Date Type Department Care Team Description 07/02/2021 Ancillary Procedure Department of Urology Social History [...] do you attend jewish or Never 2021 christian services? Do you belong to any clubs [...] have completed or the highest Martin, MEd, OUTBOARD MOTOR TESTER, CAYDEN) degree you have received? Sex Assigned at Date Recorded Male 05/21/2018 2:34 PM CDT documented as of this encounter Plan of Treatment Not on filedocumented as of this encounter Procedures Procedure Name Priority Date/Time Associated Diagnosis Comme nts UROLOGY IMAGE EXAM Routine 07/02/2021 9:20 AM Res ults for this CDT procedure are i n the results section. documented in this encounter Results CYSTOSCOPY-Urology Image Exam (07/02/2021 9:20 AM CDT) Specimen (Source) Anatomical Collection Method Collection Time Re ceived Time Location / / Volume Laterality 07/02/2021 9:17 AM CDT Narrative [facility] - 07/02/2021 9:34 AM CDT This order has been created and auto-finalized [...] documented as of this encounter Care Teams Brand Protection Manager Relationship Specialty Start Date End Date Shayla Alford D.O. PCP - General Internal Medicine 05/22/[address] [place] [address] documented as of this encounter
--- OUTSIDE RECORDS SUMMARY | 2022-05-21 11:18 | XMS_ITS | Encounter Summary ---
:1945 Author Organization [facility] Address [address] [place] [address] Care Team Providers Name Role Phone Shayla Alford D.O. Primary Care Provider [phone] Reason for Visit Reason Onset Date Comments Complex Care Coordination 06/28/2021May Bill ing Encounter Details Date Type Department Care Team Description 06/28/2021 Remote Monitoring Remote Patient BatistaSushma Complex Care Monitoring [address] [facility] Coordination [facility] [place], [place] (May Billing ) [address] [facility] [address] [place], [place] [phone] (Work) Social History Tobacco Use Types Packs/Day [...] do you attend presybeterian or Never 2021 mandaeism services? Do you belong to any clubs [...] have completed or the highest Martin, MEd, FLOWER GROWER, CAYDEN) degree you have received? Sex Assigned [...] documented as of this encounter Care Teams Offender Job Retention Specialist Relationship Specialty Start Date End Date Shayla Alford D.O. PCP - General Internal Medicine 05/22/[address] [phone] documented as of this encounter
--- OUTSIDE RECORDS SUMMARY | 2022-05-21 11:18 | XMS_ITS | Encounter Summary ---
:1945 Author Organization [facility] Address [address] [place] [address] Care Team Providers Name Role Phone Shayla Alford D.O. Primary Care Provider [phone] Encounter Details Date Type Department Care Team Description 07/02/2021 Hospital Encounter Department of Cirilo Bernal Neoplasm Of Laboratory Medicine Pato Mims Bladder Posterior in [place], [address] [address] [place] [phone] Social History Tobacco Use [...] or relatives? How often do you attend anabaptism or Never 2021 mandaeism services? Do you belong to any clubs or No 10/09/2021 organizations such as anabaptism groups, unions, fraternal or athletic groups, or [...] have completed or the highest Martin, MEd, REPEAT CHIEF, CAYDEN) degree you have received? Sex [...] (FREESTYLE SOFYA) times a day. Use to [facility] scan Sofya sensor 5 times daily and [...] DIABETIC Yani Fine 30 0 [facility] disposable needles. For use with Insulin Pens, 4 times daily SYRINGE-NEEDLE,INSULIN,0 0 .5 ML (INSULIN SYRINGE [facility]) budesonide-formoteroL Inhale 2 puffs daily 0 1010/201911/19/2021 (SYMBICORT) 160-4.5 as needed. mcg/actuation inhaler empagliflozin [...] Procedure Name Priority Date/Time Associated Comments Diagnosis CREATININE WITH Routine 07/02/2021 10:24 AM Malignant Neoplasm Results for this EGFR, S/P CDT Of Bladder procedure are i n Posterior Wall the results (HCC) section. documented in this encounter Results (ABNORMAL) Creatinine with Estimated GFR (07/02/2021 10:24 AM CDT) P athologist Signature Creatinine 1.51 (H) 0.74 - 1.35 07/02/2021 [facility] mg/dL 11:17 AM CDT Comment: Testing performed on serum eGFR-Black/ 51 (L) >=60 mL/min/BSA 12/2020 11:17 AM CDT [place] Comment: ----ADDITIONAL INFORMATION---- Estimated GFR calculated using the 2009 CKD_EPI creatinine equation. eGFR Non-Black/ 44 (L) >=60 mL/min/BSA 07/02/2021 11:17 AM CDT [facility] [place] Comment: ----ADDITIONAL INFORMATION---- Estimated GFR calculated using the 2009 CKD_EPI creatinine equation. Specimen Anatomical Collection Method Collection Time Receive d Time (Source) Location / / Volume Laterality Blood (Blood, 07/02/2021 10:24 07/02/2021 Venous) AM CDT 10:25 AM CDT Prasanna Bernal M.D. 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 PCP - General Internal Medicine 05/22/202199 [facility] [place] [address] documented as of this encounter
--- OUTSIDE RECORDS SUMMARY | 2022-05-21 11:18 | XMS_ITS | Encounter Summary ---
:1945 Author Organization [facility] Address [address] [place] [address] Care Team Providers Name Role Phone Shayla Alford D.O. Primary Care Provider [phone] Reason for Visit Reason Onset Date Comments Hypertension 07/05/2021 Graduation 07/05/2021 Encounter Details Date Type Department Care Team Description 07/05/2021 Remote Monitoring Remote Patient Kanwal Bernardo rtension; Monitoring L, M.S.N., R.N. Graduation [facility] [address] [place] [phone] Social History Tobacco Use Types Packs/Day Years [...] or relatives? How often do you attend rastafarian or Never 2021 adventism services? Do you belong to any clubs or No 10/09/2021 organizations such as rastafarian groups, unions, fraternal or athletic groups, or [...] have completed or the highest Martin, MEd, TRAIN RESERVATION CLERK, CAYDEN) degree you have received? Sex Assigned at Date Recorded Male 05/21/2018 2:34 PM CDT documented as of this encounter Progress Notes Kanwal Bernardo M.S.N., R.N. - 07/05/2021 8:55 AM CDT Remote Monitoring Ready for Graduation from program Patient began remote home monitoring for supportive management and monitoring. During enrollment, patient was educated on symptom management and self-cares in managing condition. Patient's vitals have been running slightly above goal first thing in the morning with the RM equipment. Clinic vitals are always within goal. Jonnathan tells me he generally runs around 120/60 when he is in the clinic. Denies headache, dizziness, nausea, or shortness of breath. Jonnathan does tell me he is going to have treatment for his bladder cancer in a couple of weeks. He agrees with graduating from theRM program as blood pressure is stable at all clinic visits. Patient meets criteria for graduation from the remote monitoring program. Patient is knowledgeable about when to notify provider with concerns/symptoms. Patient agrees to continue to build on goals, remain compliant with medications, and follow-up with provider at scheduled intervals. documented in this encounter Plan of Treatment Not on filedocumented as of this encounter Visit Diagnoses Not on filedocumented in this encounter Additional Health Concerns Assessment Noted Time PHQ-9 Depression Total Score: 18 04/28/2018 11:27 AM C DT documented as of this encounter Care Teams Obstetrical Tech Relationship Specialty Start Date End Date Shayla Alford D.O. PCP - General Internal Medicine 05/22/[address] [phone] documented as of this encounter
--- OUTSIDE RECORDS SUMMARY | 2022-05-21 11:18 | XMS_ITS | Encounter Summary ---
:1945 Author Organization [facility] Address [address] [place] [address] Care Team Providers Name Role Phone Shayla Alford D.O. Primary Care Provider [phone] Encounter Details Date Type Department Care Team Description 07/11/2021 Hospital Encounter Department of Bandar De Leon ([facility]); Laboratory Medicine S, P.A.-C. Preoperative Exam in [facility] [address] [place], [place] [address] [address] [place], [place] [phone] [address] (Work) [phone] Social History Tobacco Use Types Packs/Day Years [...] you attend oriental orthodox or Never 2021 synagogue services? Do you [...] have completed or the highest Martin, MEd, PRESS SECRETARY, CAYDEN) degree you have received? Sex Assigned [...] (FREESTYLE SOFYA) times a day. Use to [facility] scan Sofya sensor 5 times daily and [...] PEN NEEDLE, DIABETIC Yani Fine 30 0 [facility] [place] needles. For use with Insulin Pens, 4 times daily SYRINGE-NEEDLE,INSULIN,0 0 .5 ML (INSULIN [facility]E [facility] traZODone (DESYREL) 100 Take 0.5 tablets (50 [...] Priority Date/Time Associated Diagnosis Comme nts CBC WITHOUT Routine 07/11/2021 10:53 Preoperative Exam Result s for this DIFFERENTIAL, B AM CDT procedure ar e in the results section. HEMOGLOBIN A1C, B Routine 07/11/2021 10:53 Stroke (HCC) Result s for this AM CDT procedure are i n the results section. BASIC METABOLIC Routine 07/11/2021 10:53 Preoperative Exam Res ults for this PANEL, S/P AM CDT procedure are i n the results section. documented in this encounter Results (ABNORMAL) CBC without Differential (07/11/2021 10:53 AM CDT) [facility] gist Method Time Signature Hemoglobin 12.1 (L) 13.2 - 07/11/2021 [place] 16.6 g/dL 11:02 AM CDT Hematocrit 34.8 (L) 38.3 - 07/11/2021 [place] 48.6 % 11:02 AM CDT Erythrocytes 3.81 (L) 4.35 - 07/11/2021 [place] 5.65 11:02 AM CDT x10(12)/L MCV 91.3 78.2 - 07/11/2021 [place] 97.9 fL 11:02 AM CDT RBC Distrib Width 12.9 11.8 - 07/11/2021 [facility] 14.5 % 11:02 AM CDT Platelet Count 178 135 - 317 07/11/2021 [place] x10(9)/L 11:02 AM CDT Leukocytes 7.2 3.4 - 9.6 07/11/2021 [place] x10(9)/L 11:02 AM CDT Specimen Anatomical Collection Method Collection Time Receive d Time (Source) Location / / Volume Laterality Blood (Blood, 07/11/2021 10:53 07/11/2021 Venous) AM CDT 10:58 AM CDT Bandar De Leon P.A.-C. LAB BLOOD ADD-ON Performing Organization Address City/State/ZIP Code Phon e Number [facility]- [address] [place] [address] [facility] [place] [address] System in [place] [address] (ABNORMAL) Basic Metabolic Panel (07/11/2021 10:53 AM CDT) P athologist Signature Potassium, P 5.0 3.6 - 5.2 07/11/2021 [place] mmol/L 2:50 PM CDT Comment: Testing performed on serum Sodium, P 136 135 - 145 mmol/L 07/11/2021 2:50 PM CDT [facility] Chloride, P 101 98 - 107 mmol/L 07/11/2021 2:50 PM CDT [place] Bicarbonate, P 25 22 - 29 mmol/L 07/11/2021 2:50 PM C DT [place] Anion Gap, P 10 7 - 15 07/11/2021 2:50 PM CDT [place] BUN (Blood Urea Nitrogen), 34 (H) 8 - 24 mg/dL 07/11/2021 2:50 PM CDT [facility] P Creatinine 1.79 (H) 0.74 - 1.35 mg/dL 07/11/2021 2:50 PM CD T [facility] eGFR-Black/ 41 (L) >=60 mL/min/BSA 07/11/2021 2:50 PM CDT [facility] [place] Comment: ----ADDITIONAL INFORMATION---- Estimated GFR calculated using the 2009 CKD_EPI creatinine equation. eGFR Non-Black/ 36 (L) >=60 mL/min/BSA 07/11/2021 2:50 PM CDT [facility] [place] Comment: ----ADDITIONAL INFORMATION---- Estimated GFR calculated using the 2009 CKD_EPI creatinine equation. Calcium, Total, P 9.2 8.8 - 10.2 mg/dL 07/11/2021 2:50 PM CDT [place] Glucose, P 341 (H) 70 - 140 mg/dL 07/11/2021 2:50 PM CDT O MARCK Specimen Anatomical Collection Method Collection Time Receive d Time (Source) Location / / Volume Laterality Blood (Blood, 07/11/2021 10:53 07/11/2021 Venous) AM CDT 10:58 AM CDT Bandar De Leon P.A.-C. LAB BLOOD ADD-ON Performing Organization Address City/State/ZIP Code Phon e Number [facility]- [address] [place] [address] [place] [address] System in [place] [address] [facility] (ABNORMAL) Hemoglobin A1c (07/11/2021 10:53 AM CDT) P athologist Signature Hemoglobin A1c, 9.3 (H) 4.2 - 5.6 07/11/2021 [place] B % 11:25 AM CDT Comment: Hemoglobin A1c values greater than or eq ual to 6.5 percent are diagnostic for diabetes mellitus. ?? Diagnosis should be confirmed by repeat testing. ??In diabet ic patients, HbA1c goals should be discussed with healthcar e provider. Specimen Anatomical Collection Method Collection Time Receive d Time (Source) Location / / Volume Laterality Blood (Blood, 07/11/2021 10:53 07/11/2021 Venous) AM CDT 10:58 AM CDT Bandar De Leon P.A.-C. LAB BLOOD ADD-ON Performing Organization Address City/State/ZIP Code Phon e Number [facility]- [address] [place] [address] [facility] [place] [place] [address] System in [place] [address] [facility] documented in this encounter Visit Diagnoses Diagnosis Stroke (HCC) Preoperative Exam documented in this encounter Additional Health Concerns Assessment Noted Time PHQ-9 Depression Total Score: 18 04/28/2018 11:27 AM C DT documented as of this encounter Care Teams Bone Crusher Relationship Specialty Start Date End Date Shayla Alford D.O. PCP - General Internal Medicine 05/22/[address] [place] [address] documented as of this encounter
--- OUTSIDE RECORDS SUMMARY | 2022-05-21 11:18 | XMS_ITS | Encounter Summary ---
:1945 Author Organization [facility] Address [address] [place] [address] Care Team Providers Name Role Phone Shayla Alford D.O. Primary Care Provider [phone] Reason for Visit Reason Onset Date Comments Complex Care Coordination 05/29/2021April Billing Encounter Details Date Type Department Care Team Description 05/29/2021 Remote Monitoring Remote Patient BatistaSushma Complex Care Monitoring [address] [facility] Coordination (April [facility] [address] [place], [place] Billing ) [address] [facility] [address] [place], [place] [phone] (Work) Social History Tobacco Use Types Packs/Day [...] do you attend hinduism or Never 2021 jainism services? Do you [...] have completed or the highest Martin, MEd, MAIL COURIER, CAYDEN) degree you have received? Sex Assigned [...] documented as of this encounter Care Teams Property Consultant Relationship Specialty Start Date End Date Shayla Alford D.O. PCP - General Internal Medicine 05/22/[address] [phone] documented as of this encounter
--- OUTSIDE RECORDS SUMMARY | 2022-05-21 11:18 | XMS_ITS | Encounter Summary ---
:1945 Author Organization [facility] Address [address] [place] [address] Care Team Providers Name Role Phone Shayla Alford D.O. Primary Care Provider [phone] Reason for Visit Reason Comments Pre-op Exam cystoscopy; 07/18/21 Appointment Request (Routine) - Closed Specialty Diagnoses / Procedures Referred By Contact Refer red To Contact Community Internal Medicine Referral ID Status Reason Start Date Expiration Date Visits Requ ested Visits Authorized [id number] Closed 07/10/2021 07/10/2022 1 1 Encounter Details Date Type Department Care Team Description 07/11/2021 Office Visit Department of Bandar De Leon Preoperativ e Exam (Primary Dx); Internal Medicine in [facility] 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.] or relatives? How often do you attend muslim or Never 2021 catholic services? Do you belong to any clubs or No 10/09/2021 organizations such as muslim groups, unions, fraternal or athletic groups, or [...] have completed or the highest Martin, MEd, GOLF COURSE KEEPER, [place]) degree you have received? Sex Assigned at Date Recorded Male 05/21/2018 2:34 PM CDT documented as of this encounter Last Filed Vital Signs Vital Sign Reading Time Taken Comments Blood Pressure 132/72 07/11/2021 9:05 AM CDT Pulse 55 07/11/2021 9:05 AM CDT Temperature 36.7 ??C (98 ??F) 07/11/2021 9:05 AM CDT Respiratory Rate 16 07/11/2021 9:05 AM CDT Oxygen Saturation - - Inhaled Oxygen Concentration - - Weight 102 kg (224 lb 13.9 oz) 07/11/2021 9:05 AM CDT Height 190 cm (6' 2.8) 07/11/2021 9:05 AM CDT Body Mass Index 28.25 07/11/2021 9:05 AM CDT documented in this encounter Patient Instructions Patient InstructionsBandar De Leon P.A.-C. - 07/11/2021 9:30 AM CDT The following medication recommendations were made: - Hold Cozaar the day of the procedure - Hold Torsemide the day of the procedure - Hold Jardiance beginning Friday (07/13/2021) - Hold Aspart (rapid-acting insulin) the morning of your procedure - Take your normal Lantus dose the night before the procedure documented in this encounter H&P Notes Bandar De Leon P.A.-C. - 07/11/2021 9:30 AM CDT SUBJECTIVE CHIEF COMPLAINT / REASON FOR VISIT Jonnathan Costa is a 76 y.o. male who presents for evaluation of Pre-op Exam (cystoscopy; 07/18/21 ). HISTORY OF PRESENT ILLNESS Jonnathan Costa is a 76 y.o. male who presents to the clinic today for preoperative anestheticmedical exam prior to cystoscopic transuretheral resection of bladder tumor with random bladder biopsies and mitomycin-c placement. Procedure is currently scheduled for 07/18/[address] Bernal at [facility]. Cardiac: Chest pain or shortness of breath with climbing two flights of stairs?: No History of heart attack?: No History of cardiac dysrhythmia?: Yes - history of ventricular ectopy; Holter monitor from 02/21/2021 demonstrated a 0 percent PVC burden. Echo from 11/17/2020 demonstrated 50% EF and unchanged regional wall motion abnormalities. History of angina?: No History of heart failure?: Yes - weight stable. No chest pain, SOB, or lower extremity edema. History of stent, bypass or surgery on an artery in the head, neck, heart and legs?: No History of prosthetic heart valves? No Pulmonary: Shortness of breath or wheezing (at rest, with exercise, at night)? No History of asthma or COPD?: Yes - history of asthma, managed with Symbicort (daily) and Albuterol (as needed) History of obstructive sleep apnea?: Yes - diagnosed many years ago, did not tolerate CPAP. No interested in further investigation or interventions. Other: Personal history of problems with anesthesia?: No Family history of problems with anesthesia?: No History of stroke/TIA?: Yes - Lacunar infarct diagnosed in 2017, on Plavix History of epilepsy?: No History of thyroid disease?: Yes - On synthyroid History of liver disease?: No History of kidney disease?: Yes - stage 3a, on Cozaar; Last creatinine was 1.51 on 07/02/2021 with eGFR of 44. Stable History of bleeding/clotting disorders?: No History of anemia? No Diabetes requiring medication (insulin or other)?: Yes - On MDI insulin. Last A1C 10.3 on 05/22/2021 Current use of blood thinning medications?: Yes - Plavix (75mg) Recent antibiotic use?: No Recent oral steroid use?: No Alcohol use?: Yes - 1 beer every 3 weeks Tobacco use?: No - quit 40 years ago (50 pack year history) Illicit drug use?: No Cold, bronchitis or other respiratory infection within the last 2 weeks? No SYSTEMS REVIEW REVIEW OF SYSTEMS Constitutional: No fevers, chills, sweats, fatigue, or malaise. No significant weight or appetite change. HEENT: No ear pain, nasal congestion, or sore throat. Respiratory: No shortness of breath, difficulty breathing, chronic cough or sputum production. Cardiovascular: No chest pain, chest pressure, palpitations, syncope, or lightheadedness. Gastrointestinal: No abdominal pain, nausea, vomiting, diarrhea or constipation. Denies blood in thestools. Genitourinary: No hematuria or dysuria. No urinary frequency or urgency. Endocrine: Negative for excessive thirst, excessive hunger. Skin: No rash, pruritus, or abrasions. Neurologic: No headache, sensory changes, or numbness/tingling. Social History Socioeconomic History ??? Marital status: Spouse name: None ??? Number of children: None ??? Years of education: None ??? Highest education level: Master's degree (e.g., MA, MS, Martin, MEd, GOLF COURSE KEEPER, [place]) Occupational History Employer: RETIRED Tobacco Use ??? Smoking status: Former Smoker Packs/day: 2.00 Years: 25.00 Pack years: 50.00 Types: Cigarettes, Pipe Start date: 07/13/1955 Quit date: 1979 Years since quittin.8 ??? Smokeless tobacco: Never Used Substance and Sexual Activity ??? Alcohol use: No ??? Drug use: Never ??? Sexual activity: Not Currently Partners: Female control/protection: Vasectomy Other Topics Concern ??? None Social History Narrative ??? None Social Determinants of Health Financial Resource Strain: [...] Lack of Transportation (Non-Medical): No Physical Activity: Unknown ??? Days of Exercise per Week: 0 days ??? Minutes of Exercise per Session: Not on file Stress: ??? Feeling of Stress : Social Connections: Moderately Isolated ??? Frequency of Communication with Friends and Family: Once a week ??? Frequency of Social Gatherings with Friends and Family: More than three times a week ??? Attends Gnosticist Services: Never ??? Active Member of Clubs or Organizations: No ??? Attends Club or Organization Meetings: Not on file ??? Marital Status: Intimate Partner Violence: Unknown ??? Fear of Current or Ex-Partner: Not on file ??? Emotionally Abused: No ??? Physically Abused: No ??? Sexually Abused: No Family History Problem Relation Age of Onset ??? Hypertension Mother ??? Coronary artery disease Mother ??? Heart attack Father age 76 ??? Depression Father ??? Coronary artery disease Father ??? Asthma Sister ??? Asthma Brother ??? Depression Brother ??? Asthma Son ??? Asthma Daughter Past Medical History: Diagnosis Date ??? Apnea Sleep Obstructive 06/18/2011 intolerant to CPAP therapy ??? Asthma (HCC) 10/16/2009 Pulmonary symptomatology, diagnosis at the [facility] unclear, but probably some degree of COPD. [...] ??? Malignant Primary Neoplasm (Unknown Site) Unspecified ??? Pancreatitis Acute (HCC) ??? Personal History [...] INSERTION INTRAOCULAR LENS Left 04/2008 At the [facility] ??? LASER OF PROSTATE W/ GREEN LIGHT PVP 08/28/2016 Greenlight photoselective vaporization of the prostate and cystoscopy with bladder biopsy and fulguration of a 2cm area; 08/28/[address] Prasanna Bernal at the [facility]. ??? TONSILLECTOMY ??? TONSILLECTOMY 1967 ??? VASECTOMY Allergies Allergen Reactions ??? Doxycycline Anaphylaxis and Other (see comments) Bactrim ??? Penicillin Hives and Rash Cerner Listed no Reactions ??? Sulfa (Sulfonamide Antibiotics) Other (see comments) and Anaphylaxis Cerner Listed no Reactions ??? Amlodipine Hypotension, Nausea Only and Other (see comments) ??? Lisinopril Cough ??? Victoza 2-Eyal [Liraglutide] GI intolerance ??? Gadavist [Gadobutrol] GI intolerance Patient vomited after administration Current Outpatient Medications: ??? albuterol inhaler, INHALE 2 PUFFS BY INHALATION EVERY 6 HOURS NEEDED FOR SHORTNESS OF BREATHSHAKE WELL (FOR IMMEDIATE RELIEF)., Disp: , Rfl: ??? atorvastatin (for_LIPITOR) 80 mg tablet, Take 80 mg by mouth daily. , Disp: , Rfl: ??? blood sugar diagnostic (ACCU-CHEK MIHAI PLUS TEST STRP) strips, Reports checking 4-5 times daily. , Disp: , Rfl: ??? budesonide-formoteroL (SYMBICORT) 160-4.5 mcg/actuation inhaler, Inhale 2 puffs 2 (two) times a day. Start at 1 puff twice daily x 4 weeks, then 2 puffs twice daily if tolerated., Disp: 1 Inhaler, Rfl: 11 ??? cholecalciferol, vitamin D3, (cholecalciferol) 1,000 Unit tablet, Take 1,000 Units by mouth daily., Disp: , Rfl: ??? clopidogrel (PLAVIX) 75 mg tablet, Take 1 tablet [...] differently: Inject 10-30 Units under the skin 3 (three) times a day with meals. Sliding scale dose ), Disp: , Rfl: ??? insulin glargine (Lantus U-100 Insulin) 100 unit/mL injection, Inject 30 Units under the skin atbedtime., Disp: , Rfl: ??? levothyroxine (SYNTHROID, LEVOTHROID) 100 mcg tablet, Take 1 tablet (100 mcg total) by mouth daily., Disp: 90 tablet, Rfl: 3 ??? losartan (COZAAR) 25 mg tablet, Take 1 tablet (25 mg total) by mouth daily., Disp: 90 tablet, Rfl: 3 ??? metoprolol succinate (TOPROL-XL) 25 mg 24 hr tablet, Take 1 tablet (25 mg total) by mouth daily.Do not crush or chew., Disp: 90 tablet, Rfl: 3 ??? PEN NEEDLE, DIABETIC MISC, Yani Fine 30 disposable needles. For use with Insulin Pens, 4 times daily, Disp: , Rfl: ??? SYRINGE-NEEDLE,INSULIN,0.5 ML (INSULIN SYRINGE [facility]), , Disp: , Rfl: ??? torsemide (DEMADEX) 20 mg tablet, Take 2 tablets (40 mg total) by mouth every morning before breakfast., Disp: 180 tablet, Rfl: 3 ??? traZODone (DESYREL) 100 mg tablet, Take 0.5 tablets (50 mg total) by mouth at bedtime as needed for sleep., Disp: 30 tablet, Rfl: 1 ??? flash glucose scanning reader (FREESTYLE SOFYA) [facility], 1 each 5 (five) times a day. Use to scan Sofya sensor 5 times daily and as needed. E11.65 Lifetime use., Disp: 1 each, Rfl: 0 ??? flash glucose sensor (FREESTYLE SOFYA) kit, 1 each every 14 (fourteen) days. Change sensor every14 days E11.65 E11.40 Lifetime use, Disp: 6 kit, Rfl: 3 No current facility-administered medications for this visit. VITAL SIGNS BP 132/72 (BP Location: Right arm, Patient Position: Sitting, Cuff Size: Regular) Pulse (!) 55 Temp 36.7 ??C (Temporal) Resp 16 Ht 190 cm Wt 102 kg BMI 28.25 kg/m?? PHYSICAL EXAMINATION GENERAL: This is a well-appearing male in no acute distress. He is alert and oriented to person, place and time. SKIN: Visible skin is warm, dry, intact. HEAD: Normocephalic. Atraumatic. EYES: No discharge or crusting. No scleral injection. PERRL. EOM-I. EARS: Canals clear. Tympanic membranes pearly pena without erythema or perforation bilaterally. NOSE: Nares patent. Mucosa pink. MOUTH: Mucosa and gingivae pink. Pharynx pink without exudate. Mallampati 2. NECK: Supple with full ROM. No masses, tenderness or lymphadenopathy. LUNGS: Chest expansion symmetric. Normal respiratory effort. Wheezes present in right upper lung bosch. Otherwise lung sounds clear to auscultation bilaterally. HEART: S1-S2 with regular rate and rhythm. No murmurs, clicks, rubs, or gallops. No carotid bruits present. ABDOMEN: Soft and symmetric. No tenderness to palpation. No hepatosplenomegaly. PERIPHERAL VASCULAR: No edema noted. Peripheral pulses present 2+ and equal bilaterally. MUSCULOSKELETAL: Extremities have full ROM. 5/5 strength in upper extremities. IMPRESSION/REPORT/PLAN 1. Preoperative Exam 2. 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 Hyperplasia Prostate Benign Localized With Obstruction - Basic Metabolic Panel; Future - DX Chest AP or PA and Lateral 2 Views; Future - CBC without Differential; Future 4. 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 He denies any anginal pain today or in the recent past. Recent Holter in January of this year was stable. Echo done back in September was stable. He is able to achieve greater than 4 mets of activities without cardiopulmonary symptoms. He is medically optimized on metoprolol XL 25 mg, atorvastatin 80 mg. 5. Chronic Systolic (Congestive) Heart Failure (HCC) See above for previous cardiac history and workup. He demonstrates no symptoms heart failure today is euvolemic on exam. He is currently stable on metoprolol XL 25 mg. Torsemide 40 mg. Cozaar 25 mg. His current activity greater than 4 Mets and stable cardiac testing, no further workup is indicated at this time. 6. Diabetes Mellitus Type 2 With Diabetic Chronic Kidney Disease (HCC) 7. Diabetes Mellitus Type 2 With Diabetic Neuropathy (HCC) Patient has a known history of type 2 by diabetes currently on a regimen of Jardiance 25 mg, Lantus 30 units daily, and short-acting insulin of 10-30 units sliding scale. He notes good diligence with his medication usage; however he admits his diet is less than optimal. He does not have his blood glucometer today, he reports morning sugars in the 170s when sugars typically in the 200- 225 range. For he does relate reports several outliers including numbers as high as 490. We will repeat his hemoglobin A1c today. Discussed at length that his current diabetes is not optimized. Given the relatively urgent nature of his procedure, proceed cautiously. Discussed the possible risks of elevated blood sugars including increased risk of infection, delayed wound healing, among others. Patient expressed understand and would like to proceed with surgery regardless. Following his surgery I would recommend re-evaluation [facility]. 8. Hypertension Essential Primary Well controlled on the top and Cozaar. 9. Stroke (HCC) History of lacunar infarct in 2017. On daily Plavix therapy. 10. Chronic Kidney Disease (CKD), Stage 3b Glomerular Filtration Rate (GFR) 30 To 44 (HCC) Stable. Will recheck BMP today. 11. Hyperlipidemia Stable on Lipitor 80 mg. 12. Hypothyroidism Stable on Synthroid 100 mcg. 13. Chronic Obstructive Pulmonary Disease (HCC) Patient has a history of COPD which has historically been managed with Symbicort and albuterol as needed. He reports no pulmonary symptoms including shortness of breath, cough, or sputum production. Hedenies fevers chills or sweats. Given the faint wheezing heard in the left upper field of his lungs today, was ordered. This was negative for any signs of pneumonia or other lesion. Given his good exercise tolerance, no further testing is needed at this time. - DX Chest AP or PA and Lateral 2 Views; Future MACE risk is 15% based on RCRI score of 3 (Billy criteria). Procedure-specific surgical risk is intermediate. His diabetes is less than optimally controlled; however having giving the urgent nature of his procedure, and after discussing the risks with the patient, I feel it is reasonable to proceed withsurgery. He is aware of the increased potential risk for major adverse cardiovascular event. He is capable of achieving greater than 4 METS without cardiopulmonary symptoms. Advised no aspirin-containing products or NSAIDS 7 days prior to procedure. Medication instructions include: - Hold Cozaar the day of the procedure - Hold Torsemide the day of the procedure - Hold Jardiance beginning Friday (07/13/2021) - Hold Aspart (rapid-acting insulin) the morning of your procedure - Hold Plavix beginning Friday (07/13/2021) - Take your normal Lantus dose the night before the procedure No further testing is indicated at this time. Follow-up as needed. Patient was advised to schedule follow-up appointment [facility] at his earliest convenience. All questions have been answered and patient is in agreement with this plan. Torsten De Leon P.A.-C. 07/11/21 documented in this encounter Plan of Treatment Not on filedocumented as of this encounter Results (ABNORMAL) CBC without Differential (07/11/2021 10:53 AM CDT) [facility] gist Method Time Signature Hemoglobin 12.1 (L) [...] Address City/State/ZIP Code Phon e Number [facility]- [address] [place] [address] [facility] [place] [address] System in [place] [address] (ABNORMAL) Basic Metabolic Panel (07/11/2021 [...] >=60 mL/min/BSA 07/11/2021 2:50 PM CDT [facility] [place] Comment: ----ADDITIONAL INFORMATION---- Estimated GFR calculated using the 2009 CKD_EPI creatinine equation. eGFR Non-Black/ 36 (L) >=60 mL/min/BSA 07/11/2021 2:50 PM CDT [facility] [place] Comment: ----ADDITIONAL INFORMATION---- Estimated GFR calculated using [...] Venous) AM CDT 10:58 AM CDT Bandar ElyCMauro LAB BLOOD ADD-ON Performing Organization Address City/State/ZIP Code Phon e Number [facility]- [address] [place] [address] [place] [address] [address] in [place] [address] (ABNORMAL) Hemoglobin A1c (07/11/2021 10:53 AM CDT) [...] Venous) AM CDT 10:58 AM CDT Bandar ElyCMauro LAB BLOOD ADD-ON Performing Organization Address City/State/ZIP Code Phon e Number [facility] [address] [place] [address] [facility] [place] [place] [address] System in [place] [address] [facility] DX Chest AP or PA and Lateral [...] PA AND LATERAL 2 VIEWS Procedure Note Franlkyn Holm M.D. - 10/13/2021 EXAM: DX CHEST AP OR PA AND LATERAL 2 EWS IMPRESSION: Comparison 03/02/21. Heart size normal. Le ft upper lung is clear. Decreased small/moderate right pleural e ffusion. Decreased right basilar partial atelectasis. Bandar De Leon P.A.-C. 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 PCP - General Internal Medicine 05/22/20 [address] [place] [phone] documented as of this encounter
--- OUTSIDE RECORDS SUMMARY | 2022-05-21 11:18 | XMS_ITS | Encounter Summary ---
:1945 Author Organization [facility] Address [address] [place] [address] Care Team Providers Name Role Phone Shayla Alford D.OMauro Primary Care Provider [phone] Reason for Visit Reason Comments Med Refill Encounter Details Date Type Department Care Team Description 05/29/2021 Refill Department of Internal Medicine [facility]la Rob[facility] [address] [place] [address] [place] [address] [phone] (Wo rk) Social History Tobacco Use Types [...] do you attend yazidism or Never 2021 mormonism services? Do you [...] 03/23/2019 you have completed or the highest aMrtin, MEd, HTML DEVELOPER, [place]) degree you have received? Sex Assigned at Date Recorded Male 05/21/2018 2:34 PM CDT documented as of this encounter Miscellaneous Notes Telephone Encounter - Ai Tellez L.P.N. - 05/30/2021 1:44 PM CDT Patient was transferred to scheduling to make appointment per provider's recommendation due to the complexity of patient's current symptoms, medication changes and questions. Telephone Encounter - Ai Tellez L.PMauroN. - 05/30/2021 8:26 AM CDT SUBJECTIVE CHIEF COMPLAINT / REASON FOR CALL Hyperglycemia Information Discussed Spoke with patient and his , Diallo (MATTHEW on file), regarding refill request for Invokana. The [facility] and was changed to Jardiance 25 mg daily and a newsliding scale for Novolog. The new sliding scale is much less insulin for coverage. Since this change, his blood sugars are running very high, ranging in the 400 - 500's daily. Last evening his BS was 594 so he increased his Novolog to cover this. Rechecked at midnight and it was still 290 so he covered with Novolog. He took a total of 60u Novolog and this morning's BS is 210. He would like to go back on Invokana and have his diabetes care managed by his [place] providers and not through [facility]. He is asking for advice on coverage of these extremely high blood sugars until he can restart Invokana. He also would like clarification on when to stop the Jardiance after starting the Invokana. He is also not taking his afternoon dose of 80mg Torsemide any longer. He was instructed to stop this afternoon dose after starting the Jardiance. His weights are steady and he feels he's at a good number. PLAN Disposition/Recommendation: notified provider and awaiting recommendations Information/Education: patient/caller able to teach back Caller agreeable to plan of care: yes The following references were used: other per patient report Telephone Encounter - Anjelica [place] - 05/29/2021 6:44 AM CDT Nurse review: Unable to forward request to provider; Discrepancy: Verification Required. Medication Discontinued. Primary Provider: Shayla Alford D.O. Requested Prescriptions Pending Prescriptions Disp Refills ??? canagliflozin (INVOKANA) 100 mg tablet 30 tablet 3 Sig: Take 1 tablet (100 mg total) by mouth every morning before breakfast. Pharmacy: [facility] - [place], [place] - [facility] (Pharmacy) [phone] documented in this encounter Plan of Treatment Not on filedocumented as of this encounter Visit Diagnoses Diagnosis Diabetes Mellitus Type 2 Hyperglycemia ( HCC) documented in this encounter Additional Health Concerns Assessment Noted Time PHQ-9 Depression Total Score: 18 04/28/2018 11:27 AM C DT documented as of this encounter Care Teams Gear Shaper Set Up Operator Relationship Specialty Start Date End Date Shayla Alford D.O. PCP - General Internal Medicine 05/22/[address] [phone] documented as of this encounter
--- OUTSIDE RECORDS SUMMARY | 2022-05-21 11:18 | XMS_ITS | Encounter Summary ---
:1945 Author Organization [facility] Address [address] [place] [address] Care Team Providers Name Role Phone Shayla Alford D.OMauro Primary Care Provider Reason for Visit Reason Comments Med Refill Encounter Details Date Type Department Care Team Description 06/14/2021 Refill Department of Internal Medicine [facility]ayla Rob[facility] [address] [place] [address] [address] [place] [address] [phone] (Wo rk) Social History Tobacco Use Types [...] do you attend scientology or Never 2021 anglican services? Do you belong to any clubs [...] have completed or the highest Martin, MEd, HYDROGEOLOGY PROFESSOR, [place]) degree you have received? Sex Assigned at Date Recorded Male 05/21/2018 2:34 PM CDT documented as of this encounter Miscellaneous Notes Telephone Encounter - Mary Wilson - 06/14/2021 10:14 AM CDT Images from the original note were not included. Nurse review: Unable to forward request to provider; Discrepancy; Patient Med list shows 1 tab/day, pharmacy is requesting 1/2 tab daily. A RX for 25 mg Empaglifozin was sent to [facility] on 05/23 but not clear if he picked this up or not. Please advise [place] pharmacy. Primary Provider: Shayla Alford D.O. 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 PCP - General Internal Medicine 05/22/[address] [place] [address] documented as of this encounter
--- OUTSIDE RECORDS SUMMARY | 2022-05-21 11:19 | XMS_ITS | Encounter Summary ---
:1945 Author Organization [facility] Address [address] [place] [address] Care Team Providers Name Role Phone Shayla Alford D.O. Primary Care Provider [phone] Encounter Details Date Type Department Care Team Description 04/19/2021 Episode Changes Remote Patient Brenda Conroy Monitoring [facility] [address] [place] [address] Social History Tobacco Use Types Packs/Day Years [...] or relatives? How often do you attend yarsani or Never 2021 anabaptist services? Do you belong to any clubs or No 10/09/2021 organizations such as yarsani groups, unions, fraternal or athletic groups, or [...] completed or the highest Martin, MEd, MAINTENANCE TRAINER, [place]) degree you have received? Sex Assigned at Date Recorded Male 05/21/2018 2:34 PM CDT documented as of this encounter Plan of Treatment Not on filedocumented as of this encounter Visit Diagnoses Not on filedocumented in this encounter Additional Health Concerns Assessment Noted Time PHQ-9 Depression Total Score: 18 04/28/2018 11:27 AM C DT documented as of this encounter Care Teams Desk Director Relationship Specialty Start Date End Date Shayla Alford D.O. PCP - General Internal Medicine 05/22/[address] [address] documented as of this encounter
--- OUTSIDE RECORDS SUMMARY | 2022-05-21 11:19 | XMS_ITS | Encounter Summary ---
:[address] [facility] Address [address] [place] [address] Care Team Providers Name Role Phone Shayla Alford D.O. Primary Care Provider [phone] Reason for Visit Reason Onset Date Comments Welcome Call 04/19/2021 Completed Welcome Ca ll with patient, shared info on Remote Monitoring [place] of Service, equipment ordered before 1:00pm today and will be delivered on Friday 04/20. Patient Education 04/19/2021 Hypertension and Wel come letter/Terms of Service sent 04/19. Encounter Details Date Type Department Care Team Description 04/19/2021 Remote Monitoring Remote Patient Brenda Conroy Xander ome Call Monitoring K (Completed [place] [facility] Call with patient, [address] (Work) shared info on [place], [place] Remote Monitor [facility] [address] Terms of Servic e, equipment order ed before 1:00pm t tino and will be delivered on 04/20.); Patient Education (Hypertension a nd Welcome letter/ Terms of Service sent 04/19.) Social History Tobacco Use Types Packs/Day Years [...] or relatives? How often do you attend sabianism or Never 2021 taoist services? Do you belong to any clubs or No 10/09/2021 organizations such as sabianism groups, unions, fraternal or athletic groups, or [...] have completed or the highest Martin, MEd, AUTOMATIC SHIRRING MACHINE OPERATOR, [place]) degree you have received? Sex Assigned at Date Recorded Male 05/21/2018 2:34 PM CDT documented as of this encounter Progress Notes Brenda Conroy K - 04/19/2021 1:58 PM CDT The patient was provided with a remote monitoring kit, which included a tablet, weight scale, blood pressure monitor, pulse oximeter, and thermometer. Where appropriate and as indicated, these devices meet FDA Class II certifications as medical devices: ? ? Blood Pressure Monitor: [employer] Blood Pressure Monitor model QF-625DQS-Qe (FDA B463410) or R[employer] Skye Blood Pressure Monitor model H-DQ830RCT (FDA S535247) ? ? Weight Scale: My[employer]kong[employer] Weight Scale model XL-700, R[employer] Skye Weight Scale model 472048, or [employer] Weight Scale model JF-046MCL-Bs ??? Pulse Oximeter: Nonin Pulse Oximeter model 3230 ([facility] [id number]) or Nonin Pulse Oximeter model 9560([facility] [id number]) ? ? Thermometer: [employer] Medical Thermometer model DT-105 or [facility] [place] Basal Thermometer model 08-365 ??? Continuous Monitor: Everion V1 ([facility] [id number]) Remote Monitoring nurses address patient's questions pertaining to use of the equipment at patient'sinitial assessment visit. documented in this encounter Plan of Treatment Not on filedocumented as of this encounter Visit Diagnoses Not on filedocumented in this encounter Additional Health Concerns Assessment Noted Time PHQ-9 Depression Total Score: 18 04/28/2018 11:27 AM C DT documented as of this encounter Care Teams Authorization Specialist Relationship Specialty Start Date End Date Shayla Alford D.O. PCP - General Internal Medicine 05/22/[address] [address] [address] documented as of this encounter
--- OUTSIDE RECORDS SUMMARY | 2022-05-21 11:19 | XMS_ITS | Encounter Summary ---
:1945 Author Organization [facility] Address [address] [place] [address] Care Team Providers Name Role Phone Shayla Alford D.O. Primary Care Provider [phone] Reason for Visit Reason Onset Date Comments Complex Care Coordination 05/27/2021April Billing Encounter Details Date Type Department Care Team Description 05/27/2021 Remote Monitoring Remote Patient Siomara Jeffries Complex Care Monitoring [phone] Coordination (April [facility] (Work) Billing) [address] [place] [address] Social History Tobacco Use Types Packs/Day Years [...] or relatives? How often do you attend catholic or Never 2021 mandaen services? Do you belong to any clubs or No 10/09/2021 organizations such as catholic groups, unions, fraternal or athletic groups, [...] have completed or the highest Martin, Sirena, VP PRODUCT MANAGEMENT, [place]YDEN) degree you have received? Sex Assigned at Date Recorded Male 05/21/2018 2:34 PM CDT documented as of this encounter Plan of Treatment Not on filedocumented as of this encounter Visit Diagnoses Diagnosis Hypertension Essential Primary documented in this encounter Additional Health Concerns Assessment Noted Time PHQ-9 Depression Total Score: 18 04/28/2018 11:27 AM C DT documented as of this encounter Care Teams Bow Tacker Relationship Specialty Start Date End Date Shayla Alford D.O. PCP - General Internal Medicine 05/22/[address] [address] documented as of this encounter
--- OUTSIDE RECORDS SUMMARY | 2022-05-21 11:19 | XMS_ITS | Encounter Summary ---
:1945 Author Organization [facility] Address [address] [place] [address] Care Team Providers Name Role Phone Shayla Alford D.O. Primary Care Provider [phone] Reason for Visit Reason Onset Date Comments Hypertension 04/30/2021 Welcome Call 04/30/2021 Intake Assessment 04/30/2021 Encounter Details Date Type Department Care Team Description 04/30/2021 Remote Monitoring Remote Patient Prateek Padilla; Monitoring Donna Duque R.N. Welcome Call; [facility] Intake Assessment [address] [facility] (Work) [place] [address] Social History Tobacco Use Types Packs/Day Years [...] do you attend adventism or Never 2021 confucianist services? Do you [...] have completed or the highest Martin, MEd, SOFT IRON INSPECTOR, [place]) degree you have received? Sex Assigned at Date Recorded Male 05/21/2018 2:34 PM CDT documented as of this encounter Progress Notes Donna Padilla RShama. - 04/30/2021 9:36 AM CDT Remote Patient Monitoring - RN Welcome Call Contacting patient Best phone number to contact: [phone] When I need to contact you, are there any days or times of day that are better than others? Yes - morning, mid-day Patient agrees that message can be left on voice mail or answering machine? Yes, but call again the next day Remote Monitoring What are you hoping to get out of the Remote Monitoring Program? Check blood pressure How are you feeling about checking your vital signs daily? good Patient Education Confirmed that the patient has received and reviewed the 'RPM Program Quick Start User Guide'. The patient was given the opportunity to ask questions regarding the setup and use of the equipment.Questions were addressed and subsequently answered. Patient instructed to review patient education materials in preparation for future calls with RemoteMonitoring Nurse. Reason for Today???s Contact: Remote Patient Monitoring Assessment The following portions of the patient's history were reviewed and updated as appropriate: demographics, vital signs, allergies, health maintenance, learning assessment, social history, medical history,and surgical history. Patient Education: Confirmed that the patient has received and reviewed the 'RPM Program Quick Start User Guide'. The patient was given the opportunity to ask questions regarding the setup and use of the equipment. Questions were addressed and subsequently answered. Patient instructed to review patient education materials in preparation for future calls with Remote Monitoring nurse. 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 hypertension Functional Status/Personal Safety: What obstacles or potential barriers do you have in self-managing your condition? none Do you receive any outside help with ADLs? No Community Services? Community outreach: none During the last three months, have you had a fall? No Number of falls: 1 Number of falls with injury: hip is tender but broken, Balance, weakness, Comments: Feels he is getting better Are you using any equipment/devices? Glasses/contacts, Glucometer, Cane and Shower chair Medication Review: Current medication list was reviewed and updated as appropriate. During this past month, how often were you able to take your medication as prescribed? med Compliance: All of the time (Every day-rarely miss a dose) Do you have any difficulties taking your medication? med difficulties: none Do you have any barriers to filling your prescription medications? med Barriers: none How are your medications currently managed? medication assistance: managed by family members, Do you have any questions/concerns related to your medications? None at this time, does look things up Clinical Review: What medical conditions or health-related conditions do you have? Hypertension Condition Specific Assessment: Hypertension Please share with me your understanding of Hypertension? High blood pressure How is your HTN currently treated? Medication and Exercise Please rate how well you feel your Hypertension is currently controlled? fair Do you experience symptoms related to your high blood pressure? dizziness - balance problems Hypertension Management What medication(s) do you take for your hypertension? Losartan 25 mg daily, torsemide 40 mg BID, Are you currently following any special diet? Low Sodium, no salt added and Diabetic Diet How meals are generally prepared? Prepared at home from [employer] primarily, decreased meat Do you typically add salt to meals after they are prepared? no In a typical week, how often do you go out to eat? Not usually How many hours of sleep do you usually get per night? 8 hours Do you feel rested when you wake up in the morning? Not bad How often do you get regular physical activity? Busy body Do you currently use tobacco products or have exposure to second hand smoke? no *Have you ever participated in a smoking Cessation program? N/A Quit 45 years ago Are you currently following an Action Plan for Heart-Healthy Lifestyle? yes Do you have a plan for emergent symptoms? yes Do you know when to follow up with a provider? yes Discussion Summary: Patient also has a history of heart failure. He normally gains edema weight and wears compression stockings to combat that. He is reporting increased abdominal distention today. Admitted to eating out more than normal since grandson was visiting. Patient may have ingested a larger amount of sodium compared to before. Requested he eat no salt and remain hydrated. Reviewed when patient should expect phone calls. Patient is active outside at his [employer]. Jonnathan Costa was instructed on the program using Remote Monitoring program material StayingConnected with Remote Patient Monitoring ([id number]). Patient was instructed on whom to call with questions and is aware this program is not an emergency response system but rather a way for the care team to watch for trends in their vital signs. For urgent symptoms, patient is aware to call 911 or go to the Emergency Department. Patient was instructed to call if having any concerns or new symptoms.Patient verbalized understanding. Inquired about whether patient had any questions on Taking Vital Signs Measurements at Home and patient was able to verbalize proper technique. Next Steps: Patient agrees to continue daily [...] documented as of this encounter Care Teams Router Operator Pin Relationship Specialty Start Date End Date Shayla Alford D.O. PCP - General Internal Medicine 05/22/[address] [address] documented as of this encounter
--- OUTSIDE RECORDS SUMMARY | 2022-05-21 11:19 | XMS_ITS | Encounter Summary ---
:1945 Author Organization [facility] Address [address] [place] [address] Care Team Providers Name Role Phone Shayla Alford D.O. Primary Care Provider [phone] Reason for Visit Reason Onset Date Comments Hypertension 05/01/2021 Symptom Assessment 05/01/2021 Encounter Details Date Type Department Care Team Description 05/01/2021 Remote Monitoring Remote Patient Prateek Padilla; Monitoring Donna Duque R.N. Symptom Assessment [place] [address] [address] [facility] (Work) [place] [address] Social History Tobacco Use Types Packs/Day Years [...] do you attend druze or Never 2021 anabaptism services? Do you belong to any clubs [...] have completed or the highest Martin, MEd, REVENUE TAX SPECIALIST, [place]) degree you have received? Sex Assigned at Date Recorded Male 05/21/2018 2:34 PM CDT documented as of this encounter Plan of Treatment Not on filedocumented as of this encounter Visit Diagnoses Not on filedocumented in this encounter Additional Health Concerns Assessment Noted Time PHQ-9 Depression Total Score: 18 04/28/2018 11:27 AM C DT documented as of this encounter Care Teams Clinical Research Management Associate Relationship Specialty Start Date End Date Shayla Alofrd D.O. PCP - General Internal Medicine 05/22/20 [address] [place] [address] documented as of this encounter
--- OUTSIDE RECORDS SUMMARY | 2022-05-21 11:19 | XMS_ITS | Encounter Summary ---
:1945 Author Organization [facility] Address [address] [place] [address] Care Team Providers Name Role Phone Shayla Alford D.O. Primary Care Provider [phone] Reason for Visit Reason Onset Date Comments Hypertension 05/07/2021 Encounter Details Date Type Department Care Team Description 05/07/2021 Remote Monitoring Remote Patient Raquel Le Hypertension Monitoring [facility] [address] [place] [address] Social History Tobacco Use Types Packs/Day Years [...] do you attend presybeterian or Never 2021 anglican services? Do you [...] have completed or the highest Martin, MEd, SNOWMAKER, CAY[place]) degree you have received? Sex Assigned at Date Recorded Male 05/21/2018 2:34 PM CDT documented as of this encounter Plan of Treatment Not on filedocumented as of this encounter Visit Diagnoses Not on filedocumented in this encounter Additional Health Concerns Assessment Noted Time PHQ-9 Depression Total Score: 18 04/28/2018 11:27 AM C DT documented as of this encounter Care Teams Machining Supervisor Relationship Specialty Start Date End Date Shayla Alford D.O. PCP - General Internal Medicine 05/22/[address] [place] [address] documented as of this encounter
--- OUTSIDE RECORDS SUMMARY | 2022-05-21 11:19 | XMS_ITS | Encounter Summary ---
:1945 Author Organization [facility] Address [address] [place] [address] Care Team Providers Name Role Phone Shayla Alford D.O. Primary Care Provider [phone] Encounter Details Date Type Department Care Team Description 05/16/2021 Hospital Encounter Department of [facility], Chronic Kidney Disease (CKD), Stage 3b Glomerular Filtration Rate (GFR) 30 To 44 (HCC); Laboratory Medicine Prateek Torres Ess[facility]ology, [facility] [address] [place] [address] [place] [address] [place], [place] [phone] (Work) [phone] Social History Tobacco Use Types Packs/Day Years [...] or relatives? How often do you attend cheondoism or Never 2021 congregation services? Do you belong to any clubs or No 10/09/2021 organizations such as cheondoism groups, unions, fraternal or athletic groups, or [...] have completed or the highest Martin, MEd, VETERAN APPEALS REVIEWER, [place]) degree you have received? Sex Assigned [...] Take 1 tablet (10 mg 30 tablet 10 mg tablet total) by mouth daily. flash glucose scanning 1 each 5 (five) 1 each 0 03/02/20 21 reader (FREESTYLE SOFYA) times a day. Use to [facility] scan Sofya sensor 5 times [...] DIABETIC Yani Fine 30 0 [facility] disposable needles. For use with Insulin Pens, 4 times daily SYRINGE-NEEDLE,INSULIN,0 0 .5 ML (INSULIN SYRINGE [facility] budesonide-formoteroL Inhale 2 puffs daily 0 10/0 10/201911/19/2021 (SYMBICORT) 160-4.5 as needed. mcg/actuation inhaler canagliflozin (INVOKANA) Take 1 tablet (100 30 tablet 3 05/23/2021 100 mg mg total) by mouth tabletIndications: every morning before Diabetes Mellitus Type 2 breakfast. Hyperglycemia (HCC) gemfibroziL (LOPID) 600 Take 1 [...] Procedure Name Priority Date/Time Associated Comments Diagnosis DIPSTICK, U Routine 05/16/2021 1:08 PM Results f or this CDT procedure are i n the results section. MICROSCOPIC AUTOMATED Routine 05/16/2021 1:08 PM Results for this CDT procedure are i n the results section. PH, U Routine 05/16/2021 1:08 PM Results f or this CDT procedure are i n the results section. ALBUMIN, RANDOM, U Routine 05/16/2021 1:08 PM Chronic Kidney R esults for this CDT Disease (CKD), procedure are in Stage 3b Glomerular the resu lts Filtration Rate section. (GFR) 30 To 44 (HCC) Hypertension Essential Primary OSMOLALITY, U Routine 05/16/2021 1:08 PM Results for this CDT procedure are i n the results section. URINALYSIS WITH Routine 05/16/2021 1:08 PM Chronic Kidney Resu lts for this MICROSCOPIC CDT Disease (CKD), procedure are in Stage 3b Glomerular the resu lts Filtration Rate section. (GFR) 30 To 44 (HCC) Hypertension Essential Primary documented in this encounter Results Osmolality, Urine (05/16/2021 1:08 PM CDT) P athologist Signature Osmolality, U 337 150 - 1150 05/16/2021 DTL mOsm/kg 2:25 PM CDT Specimen Anatomical Collection Method Collection Time Receive d Time (Source) Location / / Volume Laterality Urine 05/16/2021 1:08 PM 1:45 CDT PM CDT Melissa GarciaBMauroSMauro LAB URINE ORDERABLES Performing Organization Address City/[facility]/[place]IP [facility] [place] [facility] - 200 [place], [place] [address] [place] [address] [place] [address] pH, Urine (05/16/2021 1:08 PM CDT) P athologist Signature pH, U 5.0 4.5 - 8.0 05/16/2021 2:25 DTL PM CDT Specimen Anatomical Collection Method Collection Time Receive d Time (Source) Location / / Volume Laterality Urine 05/16/2021 1:08 PM 1 1:45 CDT PM CDT Melissa RiveraSMauro LAB URINE ORDERABLES Performing Organization Address City/[facility]/ZIP Code Phon e Number [facility] - 200 [place], [place] [address] [facility] [place] [address] Microscopic Automated (05/16/2021 1:08 PM CDT) P athologist Signature Microscopy Normal 05/16/2021 2:05 DTL PM CDT Specimen Anatomical Collection Method Collection Time Receive d Time (Source) Location / / Volume Laterality Urine 05/16/2021 1:08 PM 1 1:45 CDT PM CDT Melissa RiveraSMauro LAB URINE ORDERABLES Performing Organization Address City/[facility]/[place]IP [facility] [place] [facility] - 200 [place], [place] [address] [facility] [place] [address] (ABNORMAL) Dipstick, Urine (05/16/2021 1:08 PM CDT) Patholo gist Method Time Signature Hemoglobin, QL Negative Negative 05/16/2021 DTL 2:05 PM CDT Leukocyte Negative Negative 05/16/2021 DTL Esterase, U 2:05 PM CDT Nitrite, U Negative Negative 05/16/2021 DTL 2:05 PM CDT Ketones, U Negative Negative 05/16/2021 DTL mg/dL 2:05 PM CDT Glucose, U 70 (A) Negative 05/16/2021 DTL mg/dL 2:05 PM CDT Specimen Anatomical Collection Method Collection Time Receive d Time (Source) Location / / Volume Laterality Urine 05/16/2021 1:08 PM 1:45 CDT PM CDT Melissa RiveraSMauro LAB URINE ORDERABLES Performing Organization Address City/[facility] Code Phon e Number [facility] - [address] (ABNORMAL) Albumin, Random, Urine (05/16/2021 1:08 PM CDT) P athologist Signature Albumin, 120.9 mg/L 05/17/2021 DTL Random, U 8:10 AM CDT Comment: ----ADDITIONAL INFORMATION---- This test has been modified from the rachel blunt's instructions. Its performance characteri stics were determined by [facility] in a manner co nsistent with CLIA requirements. This test has not bee n cleared or approved by the U.S. Food and Drug Admin istration. Creatinine 50 mg/dL 05/16/2021 2:39 PM CDT DTL Albumin/Creatinine Ratio 242 (H) <17 mg/g 05/17/2021 8:10 AM CDT DTL Specimen Anatomical Collection Method Collection Time Receive d Time (Source) Location / / Volume Laterality Urine (Urine, 05/16/2021 1:08 PM 05/16/20 21 3:18 Clean Catch) CDT PM CDT Melissa RiveraSMauro LAB URINE ORDERABLES Performing Organization Address City/[facility]/ZIP Code Phon e Number [facility] - [address] (ABNORMAL) Urinalysis with Microscopic: Urine, Midstream (05/16/2021 1:08 PM CDT) Patholo gist Method Time Signature Source Urine, Urine, 05/16/2021 DTL Midstream 1:45 PM CDT Color, U Yellow 05/16/2021 DTL 1:45 PM CDT Clarity, U Clear 05/16/2021 DTL 1:45 PM CDT Protein, U 19 <26 mg/dL 05/16/2021 DTL 2:42 PM CDT Protein/Osmol 0.56 (H) <0.42 05/16/2021 DTL ality ratio 2:42 PM CDT Predicted 24 545 mg/24 h 05/16/2021 DTL Hr Protein 2:42 PM CDT Predicted 173-1718 mg/24 h 05/16/2021 DTL Range 2:42 PM CDT Specimen Anatomical Collection Method Collection Time Receive d Time (Source) Location / / Volume Laterality Urine (Urine, 05/16/2021 1:08 PM 05/16/20 21 1:45 Midstream) CDT PM CDT Melissa Blackmon LAB URINE ORDERABLES Performing Organization Address City/State/ZIP Code Phon e Number [facility] - [address] [place], [place] [address] [facility] [place] [address] [facility] [address] documented in this encounter Visit Diagnoses Diagnosis Chronic Kidney Disease (CKD), Stage 3b G lomerular Filtration Rate (GFR) 30 To 44 (HCC) Hypertension Essential Primary documented in this encounter Additional Health Concerns Assessment Noted Time PHQ-9 Depression Total Score: 18 04/28/2018 11:27 AM C DT documented as of this encounter Care Teams Home Care And Home Health Aides Teacher Relationship Specialty Start Date End Date Shayla Alford D.O. PCP - General Internal Medicine 05/22/[address] [phone] documented as of this encounter
--- OUTSIDE RECORDS SUMMARY | 2022-05-21 11:19 | XMS_ITS | Encounter Summary ---
:1945 Author Organization [facility] Address [address] [place] [address] Care Team Providers Name Role Phone Shayla Alford D.O. Primary Care Provider Reason for Visit Reason Comments Medical Information Remote BP Monitoring Device Encounter Details Date Type Department Care Team Description 05/01/2021 Clinical Communication [facility] of [facility] Information Internal Medicine en, Shayla, (Remote BP in [place], D.O. Monitoring Device) [place] [address] [place] [phone] Social History Tobacco Use Types Packs/Day Years [...] or relatives? How often do you attend spiritism or Never 2021 latter day services? Do you belong to any clubs or No 10/09/2021 organizations such as spiritism groups, unions, fraternal or athletic groups, or [...] place to sleep or slept in a residential (including now)? Education Answer Date Recorded What is the highest level of school Master's degree (e.g., Neto Arias, MS, 03/23/2019 you have completed or the highest Martin, MEd, MERCHANT MILL UTILITY WORKER, [place]) degree you have received? Sex Assigned at Date Recorded Male 05/21/2018 2:34 PM CDT documented as of this encounter Miscellaneous Notes Telephone Encounter - Shayla Alford D.O. - 05/01/2021 4:44 PM CDT This was addressed in person with nursing. Electronically signed by: Shayla Alford D.O. 05/01/21 4:44 PM CDT Telephone Encounter - Irene Benson R.N. - 05/01/2021 4:34 PM CDT SUBJECTIVE CHIEF COMPLAINT / REASON FOR CALL Medical Information (Remote BP Monitoring Device) Information Discussed Spoke with Dr. Reid in person regarding patients home BP Readings. Dr. Reid recommends patientcome to nurse clinic for BP check to compare to remote monitor readings. Patient called and informedof this and is agreeable to nurse visit. Warm transferred to [facility] to schedule appointment. PLAN Disposition/Recommendation: patient transferred to the appointment desk Information/Education: patient/caller able to teach back Caller agreeable to plan of care: yes The following references were used: provider Dr. Reid Telephone Encounter - Irene Benson R.N. - 05/01/2021 4:12 PM CDT SUBJECTIVE CHIEF COMPLAINT / REASON FOR CALL Medical Information (home BP Monitor) Information Discussed Returned patient call to gather more information about what is out of whack. Patient stated his blood pressure monitor this morning 05/01/21 read 197/79 and this afternoon when he rechecked it it was 172/82. The patient reported that these readings are way too high and the machine must be broken. I was unable to see the readings from his home monitoring device at the time of our call. When asked ifthe patient had any symptoms in regards to his hypertension he denied all of the following: chest pain, lightheadedness, dizziness, nausea, headache and stated he is just tired, and has been for abouta week. This report writer discussed with the patient that I would look into his home monitoring device, and discuss his situation further with his provider and follow up with a phone call once knowing more information. Nursing then called [phone] and spoke to remote monitoring nurse who instructed this report writer where to find the home monitoring BP readings in the epic chart. PLAN Disposition/Recommendation: notified provider and awaiting recommendations Information/Education: patient/caller able to teach back The following references were used: none Telephone Encounter - Raheem Patel Ihsan - 05/01/2021 3:38 PM CDT Reason for Communication: Patient called and has medication questions. He says everything is out of wack. So he would like to talk to dr reid or nurse, please advise. Current Phone Number: [phone] Can Nursing/Provider leave a detailed message: yes Did the patient refuse triage through [...] as of this encounter Care Teams Home Advisor Relationship Specialty Start Date End Date Shayla Alford D.O. PCP - General Internal Medicine 05/22/[address] [phone] documented as of this encounter
--- OUTSIDE RECORDS SUMMARY | 2022-05-21 11:19 | XMS_ITS | Encounter Summary ---
:1945 Author Organization [facility] Address [address] [place] [address] Care Team Providers Name Role Phone Shayla Alford D.O. Primary Care Provider [phone] Encounter Details Date Type Department Care Team Description 04/19/2021 Episode Changes Remote Patient Brenda Conroy Monitoring [facility] [address] [place] [address] Social History Tobacco Use Types Packs/Day Years [...] do you attend sabianism or Never 2021 faith services? Do you belong to any clubs [...] have completed or the highest Martin, MEd, CHIN STRAP CUTTER, [place]) degree you have received? Sex Assigned at Date Recorded Male 05/21/2018 2:34 PM CDT documented as of this encounter Plan of Treatment Not on filedocumented as of this encounter Visit Diagnoses Not on filedocumented in this encounter Additional Health Concerns Assessment Noted Time PHQ-9 Depression Total Score: 18 04/28/2018 11:27 AM C DT documented as of this encounter Care Teams Work From Home Relationship Specialty Start Date End Date Shayla Alford D.O. PCP - General Internal Medicine 05/22/[address] [phone] documented as of this encounter
--- OUTSIDE RECORDS SUMMARY | 2022-05-21 11:19 | XMS_ITS | Encounter Summary ---
:1945 Author Organization [facility] Address [address] [place] [address] Care Team Providers Name Role Phone Shayla Alford D.O. Primary Care Provider [phone] Reason for Referral Outpatient (Routine) - Closed Specialty Diagnoses / Procedures Referred By Contact Refer anna To Contact Nephbenito and Melissa Ferrer [facility] M.B.B.S. [address] [place] [address] Referral ID Status Reason Start Date Expiration Date Visits Requ ested Visits Authorized [id number] Closed 05/16/2021 05/16/2022 1 1 Reason for Visit Reason Comments Chronic Kidney Disease Outpatient (Routine) - Closed Specialty Diagnoses / Procedures Referred By Contact Madelaine castillo To Contact Melissa March [facility] M.B.B[facility] [address] [place] [address] Referral ID Status Reason Start Date Expiration Date Visits Requ ested Visits Authorized [id number] Closed 04/12/2021 04/12/2022 1 1 Encounter Details Date Type Department Care Team Description 05/16/2021 Office Visit Division of Nephrology Fabio Ferrer Kidney Disease (CKD), Stage 3b Glomerular Filtration Rate (GFR) 30 To 44 (HCC) (Primary Dx); and Hypertension in Melissa, Hyperten nubia Essential Primary [place], [place] M.B.B.S. [address] [place] [phone] [phone] Social History Tobacco Use Types Packs/Day Years [...] or relatives? How often do you attend pentecostalism or Never 2021 restorationism services? Do you belong to any clubs or No 10/09/2021 organizations such as pentecostalism groups, unions, fraternal or athletic groups, or [...] have completed or the highest Martin, MEd, MANAGEMENT CONSULTING, [place]) degree you have received? Sex Assigned at Date Recorded Male 05/21/2018 2:34 PM CDT documented as of this encounter Last Filed Vital Signs Vital Sign Reading Time Taken Comments Blood Pressure - - Pulse - - Temperature - - Respiratory Rate - - Oxygen Saturation - - Inhaled Oxygen Concentration - - Weight 100 kg (220 lb 7.4 oz) 05/16/2021 1:51 PM CDT Height 190.7 cm (6' 3.08) 05/16/2021 1:51 PM CDT Body Mass Index 27.5 05/16/2021 1:51 PM CDT documented in this encounter Progress Notes Melissa Ferrer M.B.B.S. - 05/16/2021 2:00 PM CDT SUBJECTIVE REASON FOR VISIT Follow up of Chronic Kidney Disease HISTORY OF PRESENT ILLNESS Mr. Costa is a 75 y.o. male who returns for follow up. [...] a strict low-sodium diet. Hydrating himself well. Interval History 04/2021 Still working with the remote monitoring program for BP control he is now on jardiance. Recommended to stop afternoon dose of torsemide. The following portions of the patient's history were reviewed and updated as appropriate: allergies,current medications, family history, medical history, social history, surgical history and problem list. REVIEW OF SYSTEMS Negative except as mentioned in the HPI OBJECTIVE Ht 190.7 cm Wt 100 kg BMI 27.50 kg/m?? PHYSICAL EXAMINATION Constitutional General: He is [...] fraction 4. Diabetes 5. Recurrent pancreatitis, resolved He has had stable kidney function He is now started on SGLT-2 inhibitor by his hat brim curler in [place]. We discussed stopping his afternoon dose of torsemide so he deos not get too volume depleted. Medications adjusted: - decrease torsemide to 40 mg once a day in morning. Monitoring Plan: - Check BP and weight daily Follow up: -with labs and visit with me in August Jose MoranBLanden. documented in this encounter Plan of Treatment Scheduled Referrals Name Type Priority Associated Order Schedule Diagnoses Nephrology and Outpatient Referral Routine Expect ed: Hypertension office 09/15/20 21 visit (clinic) (Approximate) , Expires: 05/16/2024 documented as of this encounter Results (ABNORMAL) Albumin, Random, Urine (10/18/2021 10:20 AM DIESEL RETROFIT DESIGNER) [facility] Method Time Signature Microalbumin 66.0 mg/L 10/18/2021 OWAT 1:14 PM DIESEL RETROFIT DESIGNER Creatinine 26 mg/dL 10/18/2021 OWAT 1:14 PM DIESEL RETROFIT DESIGNER Albumin/Creatinin 254 (H) <17 mg/g 10/18/2021 OWAT e Ratio 1:14 PM DIESEL RETROFIT DESIGNER Specimen Anatomical Collection Method Collection Time Receive d Time (Source) Location / / Volume Laterality Urine (Urine, 10/18/2021 10:20 10/18/2021 Clean Catch) AM DIESEL RETROFIT DESIGNER 12:44 PM DIESEL RETROFIT DESIGNER Melissa Blackmon LAB URINE ORDERABLES Performing Organization Address City/State/ZIP Code Phon e Number [facility] [address] [place] [address] [place] [address] System in [place] [address] (ABNORMAL) Urinalysis with Microscopic: Urine, Midstream (10/18/2021 10:20 AM DIESEL RETROFIT DESIGNER) Analysis Performed At Path logist Time Signature Source Urine, Urine, 10/18/2021 FB60 Midstream 10:31 AM DIESEL RETROFIT DESIGNER Clarity Clear Clear 10/18/2021 FB60 11:03 AM DIESEL RETROFIT DESIGNER Color Yellow 10/18/2021 FB60 11:03 AM DIESEL RETROFIT DESIGNER Comment: ----REFERENCE VALUE---- Colorless Yellow Mitra Blood Negative Negative 10/18/2021 11:03 AM DIESEL RETROFIT DESIGNER FB60 Nitrite Negative Negative 10/18/2021 11:03 AM DIESEL RETROFIT DESIGNER FB60 Leukocyte Esterase Negative Negative 10/18/2021 11:[address] FB60 Protein Negative mg/dL 10/18/2021 11:03 AM DIESEL RETROFIT DESIGNER FB60 Comment: ----REFERENCE VALUE---- Negative Trace Glucose >=1000 (A) Negative mg/dL 10/18/2021 11:03 AM DIESEL RETROFIT DESIGNER FB60 Ketones, QI(U) Negative Negative mg/dL 10/18/2021 11:03 AM DIESEL RETROFIT DESIGNER FB60 Bilirubin Negative Negative 10/18/2021 11:03 AM DIESEL RETROFIT DESIGNER FB60 pH 5.5 5.0 - 8.0 10/18/2021 11:03 AM DIESEL RETROFIT DESIGNER FB60 Specific Herman 1.010 1.001 - 1.035 10/18/2021 11:03 AM DIESEL RETROFIT DESIGNER FB60 Urobilinogen 0.2 0.2 - 1.0 mg/dL 10/18/2021 11:[address] FB60 White Blood Cells Occ-3 /hpf 10/18/2021 11:04 AM CS T FB60 Comment: ----REFERENCE VALUE---- Males: 0-3 Females: 0-10 Unknown: 0-10 Red Blood Cells None Seen 0 - 2 /hpf 10/18/2021 11:04 AM DIESEL RETROFIT DESIGNER FB60 Specimen Anatomical Collection Method Collection Time Receive d Time (Source) Location / / Volume Laterality Urine (Urine, 10/18/2021 10:20 10/18/2021 Midstream) AM DIESEL RETROFIT DESIGNER 10:31 AM DIESEL RETROFIT DESIGNER Melissa RiveraS. LAB URINE ORDERABLES Performing Organization Address City/State/ZIP Code Phon e Number [facility] [address] [place] [address] [place] [address] [facility] [place] [address] System [address] Uric Acid (10/09/2021 11:08 AM DIESEL RETROFIT DESIGNER) P athologist Signature Uric Acid, P 7.5 3.7 - 8.0 10/09/2021 AUST mg/dL 4:28 PM DIESEL RETROFIT DESIGNER Specimen Anatomical Collection Method Collection Time Receive d Time (Source) Location / / Volume Laterality Blood (Blood, 10/09/2021 11:08 10/09/2021 4:05 Venous) AM DIESEL RETROFIT DESIGNER PM DIESEL RETROFIT DESIGNER Melissa GarciaB.S. LAB BLOOD ADD-ON Performing Organization Address City/State/ZIP Code Phon e Number [facility]- [address] [place] [address] [facility] [place] [address] [facility] [address] (ABNORMAL) Renal Function Panel (10/09/2021 11:08 AM DIESEL RETROFIT DESIGNER) Analysis Performed At Patho logist Time Signature Potassium, P 4.6 3.6 - 5.2 10/09/2021 OWAT mmol/L 11:36 AM DIESEL RETROFIT DESIGNER Sodium, P 133 (L) 135 - 145 10/09/2021 OWAT mmol/L 11:36 AM DIESEL RETROFIT DESIGNER Chloride, P 98 98 - 107 10/09/2021 OWAT mmol/L 11:36 AM DIESEL RETROFIT DESIGNER Bicarbonate, P 22 22 - 29 10/09/2021 OWAT mmol/L 11:35 AM DIESEL RETROFIT DESIGNER Anion Gap, P 13 7 - 15 10/09/2021 OWAT 11:36 AM DIESEL RETROFIT DESIGNER BUN (Blood Urea 38 (H) 8 - 24 10/09/2021 OWAT Nitrogen), P mg/dL 11:35 AM DIESEL RETROFIT DESIGNER Creatinine 1.69 (H) 0.74 - 10/09/2021 OWAT 1.35 mg/dL 11:35 AM DIESEL RETROFIT DESIGNER eGFR-Black/Afri 44 (L) >=60 10/09/2021 OWAT can [place] mL/min/BSA 11:35 AM DIESEL RETROFIT DESIGNER Comment: ----ADDITIONAL INFORMATION---- Estimated GFR calculated using the 2009 CKD_EPI creatinine equation. eGFR Non-Black/ 38 (L) >=60 mL/min/BSA 10/09/2021 11:35 AM DIESEL RETROFIT DESIGNER OWAT [place] Comment: ----ADDITIONAL INFORMATION---- Estimated GFR calculated using the 2009 CKD_EPI creatinine equation. Calcium, Total, P 8.9 8.8 - 10.2 mg/dL 10/09/2021 11:3 5 AM DIESEL RETROFIT DESIGNER OWAT Glucose, P 440 (CH) 70 - 140 mg/dL 10/09/2021 12:34 PM DIESEL RETROFIT DESIGNER OWAT Albumin, P 3.6 3.5 - 5.0 g/dL 10/09/2021 11:35 AM DIESEL RETROFIT DESIGNER OWAT Phosphorus (Inorganic), P 4.4 2.5 - 4.5 mg/dL 10/09/19 4:28 PM DIESEL RETROFIT DESIGNER AUST Specimen Anatomical Collection Method Collection Time Receive d Time (Source) Location / / Volume Laterality Blood (Blood, 10/09/2021 11:08 10/09/2021 4:05 Venous) AM DIESEL RETROFIT DESIGNER PM DIESEL RETROFIT DESIGNER Narrative [facility] - 10/09/2021 4:28 PM DIESEL RETROFIT DESIGNER Specimen Information: Specimen ID: [id number] Specimen Type: Blood Specimen Collection Start Date: 10/09/19 11:08 AM Specimen Received Date: 10/09/2021 ??4:0 5 PM Specimen ID: [id number] Specimen Type: Blood Specimen Collection Start Date: 10/09/19 11:08 AM Specimen Received Date: 10/09/2021 11:09 AM Melissa Blackmon LAB BLOOD ADD-ON Performing Organization Address City/State/ZIP Code Phon e Number [facility]- [address] [place] [address] [place] [address] System in [place] [address] [facility] [place] [address] [facility] [address] documented in this encounter Visit Diagnoses Diagnosis Chronic Kidney Disease (CKD), Stage 3b G lomerular Filtration Rate (GFR) 30 To 44 (HCC) - Primary Hypertension Essential Primary Hypertension Essential Primary Chronic Kidney Disease (CKD), Stage 3b G lomerular Filtration Rate (GFR) 30 To 44 (HCC) documented in this encounter Additional Health Concerns Assessment Noted Time PHQ-9 Depression Total Score: 18 04/28/2018 11:27 AM C DT documented as of this encounter Care Teams Php Wordpress Developer Relationship Specialty Start Date End Date Shayla Alford D.O. PCP - General Internal Medicine 05/22/[address] [place] [phone] documented as of this encounter
--- OUTSIDE RECORDS SUMMARY | 2022-05-21 11:19 | XMS_ITS | Encounter Summary ---
:1945 Author Organization [facility] Address [address] [place] [address] Care Team Providers Name Role Phone Shayla Alford D.O. Primary Care Provider [phone] Reason for Visit Reason Comments Nurse Visit BP check Outpatient (Routine) - Closed Specialty Diagnoses / Procedures Referred By Contact Refer red To Contact Diagnoses Hypertension Essential Primary Shayla Alford [facility] Region [address], [place] [address] Referral ID Status Reason Start Date Expiration Date Visits Requ ested Visits Authorized [id number] Closed 05/01/2021 05/01/2022 1 1 Encounter Details Date Type Department Care Team Description 05/02/2021 Nurse Only Department of Family Shayla Murillo D.OMauro [address], [place] [phone] Nurse Visit (BP check) [facility], [place] Kayli Garcia, L.PMauroNMauro [address] [place] [address] Clinic, in [place] [address] [place] [phone] Social History Tobacco Use Types Packs/Day Years [...] do you attend yarsani or Never 2021 caodaism services? Do you belong to any clubs [...] completed or the highest Martin, MEd, VETERINARY EPIDEMIOLOGIST, CAYDEN) degree you have received? Sex Assigned at Date Recorded Male 05/21/2018 2:34 PM CDT documented as of this encounter Last Filed Vital Signs Vital Sign Reading Time Taken Comments Blood Pressure 134/66 05/02/2021 8:01 AM CDT Pulse 52 05/02/2021 8:01 AM CDT Temperature - - Respiratory Rate - - Oxygen Saturation - - Inhaled Oxygen Concentration - - Weight 99.9 kg (220 lb 2.1 oz) 05/02/2021 8:01 AM CDT Height - - Body Mass Index 27.95 04/19/2021 9:24 AM CDT documented in this encounter Progress Notes Kayli Garcia L.PMauroN. - 05/02/2021 8:15 AM CDT The patient is seen today for a blood pressure measurement. The patient is taking their blood pressure medication as prescribed, However, he did not take his medication yet this morning. The patient brought no home readings with them today The patient states they are currently having the following symptoms:none (denies symptoms of blurry vision, dizziness, feeling faint, lightheaded or severe headache) Based on today's readings: The provider will be notified of today's visit and the patient was dismissed.. documented in this encounter Plan of Treatment Not on filedocumented as of this encounter Visit Diagnoses Diagnosis Hypertension Essential Primary documented in this encounter Additional Health Concerns Assessment Noted Time PHQ-9 Depression Total Score: 18 04/28/2018 11:27 AM C DT documented as of this encounter Care Teams Supervisor Car And Yard Relationship Specialty Start Date End Date Shayla Alford D.O. PCP - General Internal Medicine 05/22/[address] [address] documented as of this encounter
--- OUTSIDE RECORDS SUMMARY | 2022-05-21 11:19 | XMS_ITS | Encounter Summary ---
:1945 Author Organization [facility] Address [address] [place] [address] Care Team Providers Name Role Phone Shayla Alford D.O. Primary Care Provider [phone] Reason for Referral Outpatient (Routine) - Closed Specialty Diagnoses / Procedures Referred By Contact Refer red To Contact Diagnoses Hypertension Essential Primary Shayla Alford [facility] D[address]O. [address] [place] [address] Referral ID Status Reason Start Date Expiration Date Visits Requ ested Visits Authorized [id number] Closed 05/01/2021 05/01/2022 1 1 Encounter Details Date Type Department Care Team Description 05/01/2021 Orders Only Department of Internal Selvin Alford ypertension Essential [place] Primary (Primary Dx) [place] [address] [place] [phone] Social History Tobacco Use Types Packs/Day Years [...] do you attend hoahaoism or Never 2021 presybeterian services? Do you belong to any clubs [...] completed or the highest Martin, MEd, MANAGER MARITIME, CAYDEN) degree you have received? Sex Assigned at Date Recorded Male 05/21/2018 2:34 PM CDT documented as of this encounter Plan of Treatment Scheduled Referrals Name Type Priority Associated Diagnoses Order S [facility] Primary Care Outpatient Referral Routine Hypertension [facility] l Expected: nurse visit Primary 05/15/2021 (clinic) - [facility] (Approximate ), [place]; Expires: Vital signs 05/01/2024 documented as of this encounter Visit Diagnoses Diagnosis Hypertension Essential Primary - Primary documented in this encounter Additional Health Concerns Assessment Noted Time PHQ-9 Depression Total Score: 18 04/28/2018 11:27 AM C DT documented as of this encounter Care Teams Chief Operator Hydroformer Relationship Specialty Start Date End Date Shayla Alford D.O. PCP - General Internal Medicine 05/22/[address] [address] documented as of this encounter
--- OUTSIDE RECORDS SUMMARY | 2022-05-21 11:19 | XMS_ITS | Encounter Summary ---
:1945 Author Organization [facility] Address [address] [place] [address] Care Team Providers Name Role Phone Dejah Alford D.O. Primary Care Provider [phone] Reason for Visit Reason Onset Date Comments Hypertension 05/25/2021 Follow-up 05/25/2021 Encounter Details Date Type Department Care Team Description 05/25/2021 Remote Monitoring Remote Patient Prateek Padilla; Monitoring Donna Duque R.N. [place]up [place] [address] [address] [facility] (Work) [place] [address] Social History Tobacco Use Types Packs/Day Years [...] or relatives? How often do you attend quaker or Never 2021 advent services? Do you belong to any clubs or No 10/09/2021 organizations such as quaker groups, unions, fraternal or athletic groups, or [...] have completed or the highest Martin, MEd, COURT REPORTER, CAYDEN) degree you have received? Sex Assigned at Date Recorded Male 05/21/2018 2:34 PM CDT documented as of this encounter Progress Notes Donna Padilla RMauroN. - 05/25/2021 10:24 AM CDT Remote Patient Monitoring - RN Follow-up Call Primary reason for today's contact: General follow up Discussion Summary: Jonnathan Costa was called today to discuss his progress with Remote Patient Monitoring and hypertension. Recent readings include: Weight 212.6 lbs, HR 59, SpO2 98%, B/P 156/105, 141/80, 151/82. Patient was seen in clinic 05/24/2021, B/P 120/70 there. Patient denies dizziness, shortness of breath, headache, or stroke like symptoms. Discussion about accuracy of our machines and clinic technique. Will arrange for patient to be seen in clinic for blood pressure technique and comparison. Patient was agreeable to plan. Will continue to monitor. Medication Discussion: Patient denies difficulty taking medications or obtaining refills from the pharmacy. Patient denies medication changes since last conversation; no questions at this time related to current medication regimen. Patient Education: Patient and/or caregiver was instructed on: ?? Self-care plan - Daily monitoring for weight, blood pressure, heart rate, and oxygen. Patient/caregiver able to teach back ?? Chronic condition - Hypertension ?? Attend RN clinic visit for blood pressure monitor comparisons (See patient education summary pagefor more detailed information.) Next Steps: Patient agrees to continue daily vital sign monitoring and follow up call scheduled. Patient agreed to call Remote Patient Monitoring nurse with any questions or concerns in the interim. documented in this encounter Miscellaneous Notes Addendum Note - Patty Wheeler LMauroPMauroN. - 05/25/2021 10:24 AM CDT Addended by: PATTY WHEELER on: 05/25/2021 11:34 AM Modules accepted: Orders Addendum Note - Dejah Alford D.O. - 05/25/2021 10:24 AM CDT Addended by: DEJAH ALFORD on: 05/25/2021 02:40 PM Modules accepted: Orders documented in this encounter Plan of Treatment Not on filedocumented as of this encounter Visit Diagnoses Not on filedocumented in this encounter Additional Health Concerns Assessment Noted Time PHQ-9 Depression Total Score: 18 04/28/2018 11:27 AM C DT documented as of this encounter Care Teams Phlebotomy Technician Relationship Specialty Start Date End Date Dejah Alford D.O. PCP - General Internal Medicine 05/22/[address] [address] documented as of this encounter
--- OUTSIDE RECORDS SUMMARY | 2022-05-21 11:19 | XMS_ITS | Encounter Summary ---
:1945 Author Organization [facility] Address [address] [place] [address] Care Team Providers Name Role Phone Shayla Alford D.O. Primary Care Provider [phone] Reason for Referral Outpatient (Routine) - Closed Specialty Diagnoses / Procedures Referred By Contact Refer red To Contact [facility] Internal ARMAAN Alford SE, D.O. [address] [address] Referral ID Status Reason Start Date Expiration Date Visits Requ ested Visits Authorized [id number] Closed 05/23/2021 05/23/2022 1 1 Scheduling Instructions May use same slot to allow patient to sc hedule at 9 AM Diabetes follow up Reason for Visit Reason Comments Follow-up DM, CKD Outpatient (Routine) - Closed Specialty Diagnoses / Procedures Referred By Contact Madelaine castillo To Contact [facility] Internal ARMAAN Alford SE, D.O. 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 Diabetes Mellitus Type 2 Hyperglycemia ( HCC); [place] [address] Asthma Extrinsic Moderate (HCC); [address] [place], [place] Hypertension Essential Prima ry; [place] [address] Chronic Kidney Disease (CKD), Stage 3b G lomerular Filtration Rate (GFR) 30 To 44 ([facility]) [address] Social History Tobacco Use Types Packs/Day [...] or relatives? How often do you attend jehovah's witness or Never 2021 evangelical services? Do you belong to any clubs or No 10/09/2021 organizations such as jehovah's witness groups, unions, fraternal or athletic groups, or [...] for the very basics like Not h enlda at all 10/09/2021 food, housing, medical care, [...] have completed or the highest Martin, MEd, HUMAN RESOURCE STATISTICIAN, CAYDEN) degree you have received? Sex Assigned at Date Recorded Male 05/21/2018 2:34 PM CDT documented as of this encounter Last Filed Vital Signs Vital Sign Reading Time Taken Comments Blood Pressure 120/70 05/23/2021 1:15 PM average of 3 CDT Pulse 54 05/23/2021 1:15 PM CDT Temperature 36.9 ??C (98.4 ??F) 05/23/2021 1:15 PM CDT Respiratory Rate 16 05/23/2021 1:15 PM CDT Oxygen Saturation - - Inhaled Oxygen Concentration - - Weight 101 kg (221 lb 12.5 oz) 05/23/2021 1:15 PM with shoes CDT Height 190 cm (6' 2.8) 05/23/2021 1:15 PM with shoes CDT Body Mass Index 27.87 05/23/2021 1:15 PM CDT documented in this encounter Progress Notes Shayla Alford D.O. - 05/23/2021 1:30 PM CDT SUBJECTIVE CHIEF COMPLAINT / REASON FOR VISIT Jonnathan Costa is a 75 y.o. male who presents for evaluation of Follow-up (DM, CKD). HISTORY OF PRESENT ILLNESS Jonnathan Costa is a 75 y.o. male with past medical history significant for CKD stage 3, diabetes type 2 with hyperglycemia, systolic congestive heart failure,??asthma,??and pleural effusion??who??presents today??with his ??for a follow-up. I last saw the patient on 04/19/2021. He is doing well overall. In regards to type 2 diabetes, we discussed at length management. His last hemoglobin A1c was 10.3% yesterday [05/22/2021] which is elevated from 7.9% on 02/13/2021. There is a large amount of confusion at our visit today as he has also [facility] ([facility]Dr[facility] Johnson Mcnamara]and pharmacist in charge of the diabetes program). ??We reviewed all the medication adjustments. He was placed on a sliding scale and Jardiance but Jonnathan has never received his prescription for the Jardiance. This was difficult for him and he found his blood sugars were in the 300-500's. He has continued on Lantus 30 units at bedtime. He denies any chest pain, shortness of breath, or headaches. Thereare no further concerns at this time. The following portions of the patient's history were reviewed and updated as appropriate: allergies,current medications, family history, medical history, social history, surgical history, and problem list. REVIEW OF SYSTEMS A ten point ROS is otherwise negative OBJECTIVE BP 120/70 (BP Location: Right arm, Patient Position: Sitting, Cuff Size: Regular) Comment: average of 3 Pulse (!) 54 Temp 36.9 ??C (Temporal) Resp 16 Ht 190 cm Comment: with shoes Wt 101 kg Comment: with shoes BMI 27.87 kg/m?? PHYSICAL EXAMINATION General Appearance: healthy, alert, no distress. Skin: skin color, texture, turgor normal, no suspicious rashes or lesions. Head: normocephalic, no masses, lesions, tenderness or abnormalities. Neck: Supple, no adenopathy; thyroid symmetric, normal size, no bruits. Lungs: clear to auscultation, no wheezing or rhonchi. Heart: RRR without murmur, gallop, or rubs. No ectopy, No carotid bruits. Extremities: DTRs: Patella and Achilles 2+ bilaterally and symmetric. Compression stockings in place. No edema, cyanosis or calf tenderness.. DIAGNOSTICS Component Latest Ref Rng & Units 05/22/2021 Hemoglobin A1c, B 4.2 - 5.6 % 10.3 (H) ASSESSMENT / PLAN #1 Diabetes Mellitus Type 2 With Diabetic Neuropathy (HCC). #2 Diabetes Mellitus Type 2 Hyperglycemia (HCC). PLAN: In regards to type 2 diabetes, we discussed at length management. He has also been working with [facility] ([facility] [Dr. Johnson Mcnamara] and a pharmacist in charge of the diabetes program). At their last appointment, they placed him on a sliding scale and Jardiance but Jonnathan has never received his prescription for the Jardiance. His blood sugars have been elevated in the 300's. His most recent hemoglobin A1c was 10.3% on 05/22/2021. Jonnathan is provided with an order for Jardiance 25 mg bymouth daily AM: - empagliflozin (Jardiance) 25 mg tablet; Take 1 tablet (25 mg total) by mouth every morning before breakfast., Starting 05/23/2021, Normal Reviewed the way this medication works and possible side effects. Encouraged ongoing efforts at aggressive lifestyle modifications including regular exercise and a healthy diet. Blood pressure today is120/70 mmHg. Creatinine was 1.62 on 04/18/2021. Encouraged pushing fluids [greater than 64 ounces ofwater] and avoiding NSAIDs. #3 Hypertension Essential Primary; well controlled. PLAN: Blood pressure today is 120/70 mmHg. Doing well on his current regimen. Continue to monitor blood pressure readings with a goal of <140/80 mmHg. Encouraged ongoing efforts at aggressive lifestyle modifications including regular exercise and a healthy diet. Notify me with any questions or concerns. #4 Chronic Kidney Disease (CKD), Stage 3b Glomerular Filtration Rate (GFR) 30 To 44 (HCC). PLAN: Creatinine was 1.62 on 04/18/2021. Encouraged pushing fluids [greater than 64 ounces of water]and avoiding NSAIDs. #5 Asthma Extrinsic Moderate (HCC). #6 Hypoxia; resolved. PLAN: Today he reports that his shortness of breath has improved. He is volume stable with no evidence of volume overload.??An order was provided to discontinue supplemental oxygen - DME Discontinue supplemental oxygen therapy; #7 Follow-up Visit. PLAN: Return to the clinic in 1 month for follow-up as already scheduled. PATIENT EDUCATION Patient Education: Ready to learn, no apparent learning barriers were identified; learning preferences include listening. Explained diagnosis and treatment plan; patient expressed understanding of the context. This document serves as a record of services personally performed by Shayla Alford D.O.. Itwas created on their behalf by Sarai Cason, a trained medical or surgical instrument maker. The creation of this recordis based on the scribe remotely listening to the visit and the provider's statements to them. This do cument has been checked and approved by the attending provider. Time spent 33 minutes Electronically signed by: Shayla Alford D.O. 05/23/21 5:22 PM CDT documented in this encounter Plan of Treatment Scheduled Referrals Name Type Priority Associated Diagnoses Order S [facility] Internal Outpatient Referral Routine Ex pected: Medicine office 06/19/2021 visit (clinic) (Approximate) , Expires: 05/23/2024 documented as of this encounter Visit Diagnoses Diagnosis 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) - Primary Diabetes Mellitus Type 2 Hyperglycemia ( HCC) Asthma Extrinsic Moderate (HCC) Hypertension Essential Primary Chronic Kidney Disease (CKD), Stage 3b G lomerular Filtration Rate (GFR) 30 To 44 (HCC) documented in this encounter Additional Health Concerns Assessment Noted Time PHQ-9 Depression Total Score: 18 04/28/2018 11:27 AM C DT documented as of this encounter Care Teams Marble Polisher Hand Relationship Specialty Start Date End Date Shayla Alford D.O. PCP - General Internal Medicine 05/22/[address] [address] documented as of this encounter
--- OUTSIDE RECORDS SUMMARY | 2022-05-21 11:19 | XMS_ITS | Encounter Summary ---
:1945 Author Organization [facility] Address [address] [place] [address] Care Team Providers Name Role Phone Shayla Alford D.O. Primary Care Provider [phone] Reason for Visit Reason Onset Date Comments Hypertension 05/11/2021 Symptom Assessment 05/11/2021 Encounter Details Date Type Department Care Team Description 05/11/2021 Remote Monitoring Remote Patient Kayli Guzman Hyp ertension; Monitoring K, R.N. Symptom Assessment [place] [address] [address] [facility] (Work) [place] [address] Social History Tobacco Use Types Packs/Day Years [...] do you attend yazidism or Never 2021 jehovah's witness services? Do [...] have completed or the highest Martin, MEd, EXTRAS CASTING DIRECTOR, CAYDEN) degree you have received? Sex Assigned at Date Recorded Male 05/21/2018 2:34 PM CDT documented as of this encounter Progress Notes Kayli Guzman, RMauroN. - 05/11/2021 9:25 AM CDT Remote Patient Monitoring - RN Follow-up Call Primary reason for today's contact: Symptomology assessment Discussion Summary: Jonnathan Costa was called today to discuss elevated blood pressure readings. Patient with elevated blood pressure readings the past two days 162/87 and 155/89. Patient reports that he received his new blood pressure cuff and is using that. He reports that he is feeling tired. He denies lightheadedness, dizziness, headache, or vision changes, He also denies numbness or tingling on extremities. Patient does have an appointment next week and will discuss his readings with this provider at that time. Patient will no concerns at this time. Medication Discussion: Patient denies difficulty taking medications or obtaining refills from the pharmacy. Patient Education: Patient and/or caregiver was instructed on: ?? Medication - continue medications as prescribed. Patient/caregiver able to teach back ?? Self-care plan - continue monitoring vital signs. Patient/caregiver able to teach back ?? Chronic condition - hypertension (See patient education summary page for more detailed information.) Goals Discussed: The patient's goals were not [...] documented as of this encounter Care Teams Pc Network Technician Relationship Specialty Start Date End Date Shayla Alford D.O. PCP - General Internal Medicine 05/22/[address] [address] documented as of this encounter
--- OUTSIDE RECORDS SUMMARY | 2022-05-21 11:19 | XMS_ITS | Encounter Summary ---
:1945 Author Organization [facility] Address [address] [place] [address] Care Team Providers Name Role Phone Shayla Alford D.O. Primary Care Provider [phone] Reason for Visit Reason Onset Date Comments Hypertension 05/03/2021 Symptom Assessment 05/03/2021 Encounter Details Date Type Department Care Team Description 05/03/2021 Remote Monitoring Remote Patient Prateek Padilla; Monitoring Donna Duque R.N. Symptom Assessment [place] [address] [facility] (Work) [place] [address] Social History Tobacco Use Types Packs/Day Years [...] you attend oriental orthodox or Never 2021 rastafarian services? Do you belong to any clubs [...] have completed or the highest Martin, MEd, LECTURER IN MARKETING, CAYDEN) degree you have received? Sex Assigned at Date Recorded Male 05/21/2018 2:34 PM CDT documented as of this encounter Progress Notes Donna Padilla RShama. - 05/03/2021 9:24 AM CDT Remote Patient Monitoring - RN Symptomology Call Primary reason for today's contact: Hypertension Symptom Assessment Are you experiencing any of the following symptoms today? No None In the past week, have you had difficulties managing your blood pressure? none Do you have a plan for emergent symptoms? yes Do you know when to follow up with a provider? yes Discussion Summary: Jonnathan Costa was called today to discuss recent HTN on Remote Patient Monitoring equipment.Recent B/Ps 185/93, 162/78, 172/82. Recent clinic visit for B/P check 134/66. Questioning the accuracy of our equipment. Will send patient a new blood pressure monitoring device. Medication Discussion: Patient denies difficulty taking medications [...] documented as of this encounter Care Teams Ripsawyer Relationship Specialty Start Date End Date Shayla Alford D.O. PCP - General Internal Medicine 05/22/[address] [address] documented as of this encounter
--- OUTSIDE RECORDS SUMMARY | 2022-05-21 11:19 | XMS_ITS | Encounter Summary ---
:1945 Author Organization [facility] Address [address] [place] [address] Care Team Providers Name Role Phone Shayla Alford D.O. Primary Care Provider [phone] Encounter Details Date Type Department Care Team Description 05/24/2021 Clinical Communication Department of Internal Andrei Dejesus Medicine in [place], [place], [place].O [place] [address] [place] [phone] Social History Tobacco Use Types Packs/Day Years [...] do you attend evangelical or Never 2021 mormon services? Do you belong to any clubs or No 10/09/2021 organizations such as evangelical groups, unions, fraternal or athletic groups, or [...] have completed or the highest Martin, MEd, MARINE RADIO INSTALLER AND SERVICER, CAYDEN) degree you have received? Sex Assigned at Date Recorded Male 05/21/2018 2:34 PM CDT documented as of this encounter Miscellaneous Notes Telephone Encounter - Yari Lee - 05/24/2021 11:16 AM CDT Faxed visit note to [facility] per patient request for discontinuation of oxygen. documented in this encounter Plan of Treatment Not on filedocumented as of this encounter Visit Diagnoses Not on filedocumented in this encounter Additional Health Concerns Assessment Noted Time PHQ-9 Depression Total Score: 18 04/28/2018 11:27 AM C DT documented as of this encounter Care Teams Investigative Analyst Relationship Specialty Start Date End Date Shayla Alford D.O. PCP - General Internal Medicine 05/22/20 [address] [place] [address] documented as of this encounter
--- OUTSIDE RECORDS SUMMARY | 2022-05-21 11:19 | XMS_ITS | Encounter Summary ---
:1945 Author Organization [facility] Address [address] [place] [address] Care Team Providers Name Role Phone Shayla Alford D.O. Primary Care Provider [phone] Reason for Visit Reason Onset Date Comments Hypertension 04/25/2021 Welcome Call 04/25/2021 Encounter Details Date Type Department Care Team Description 04/25/2021 Remote Monitoring Remote Patient Prateek Padilla; Monitoring Donna Duque R.N. Welcome Call [facility] [address] [facility] (Work) [place] [address] Social History Tobacco Use Types Packs/Day Years [...] or relatives? How often do you attend synagogue or Never 2021 adventist services? Do you belong to any clubs or No 10/09/2021 organizations such as synagogue groups, unions, fraternal or athletic groups, or [...] have completed or the highest Martin, MEd, SKIVER MACHINE OPERATOR, [place]) degree you have received? Sex Assigned at Date Recorded Male 05/21/2018 2:34 PM CDT documented as of this encounter Plan of Treatment Not on filedocumented as of this encounter Visit Diagnoses Not on filedocumented in this encounter Additional Health Concerns Assessment Noted Time PHQ-9 Depression Total Score: 18 04/28/2018 11:27 AM C DT documented as of this encounter Care Teams Facilities Maintenance Engineer Relationship Specialty Start Date End Date Shayla Alford D.O. PCP - General Internal Medicine 05/22/[address] [phone] documented as of this encounter
--- OUTSIDE RECORDS SUMMARY | 2022-05-21 11:19 | XMS_ITS | Encounter Summary ---
:1945 Author Organization [facility] Address [address] [place] [address] Care Team Providers Name Role Phone Shayla Alford D.O. Primary Care Provider [phone] Reason for Visit Reason Comments Medical Information Encounter Details Date Type Department Care Team Description 04/19/2021 Clinical Communication Department of Alexys Wheeler [facility] Information Internal Medicine en, Shayla in [place] [address] [place] [phone] Social History Tobacco Use [...] or relatives? How often do you attend judaism or Never 2021 episcopal services? Do you belong to any clubs or No 10/09/2021 organizations such as judaism groups, unions, [employer] or athletic groups, or school groups? How [...] have completed or the highest Martin, MEd, SURVEY METHODOLOGIST, CAYDEN) degree you have received? Sex Assigned at Date Recorded Male 05/21/2018 2:34 PM CDT documented as of this encounter Miscellaneous Notes Telephone Encounter - Kayli Rivera LMauroP.N. - 04/19/2021 1:55 PM CDT Fax order to [phone]. Telephone Encounter - Raheem Patel - 04/19/2021 11:36 AM CDT Reason for Communication: Patients Diallo called and she wanted to give jacki the info for theoxygen supplier. [facility]. [address] [place] [address] is the info she gave Current Can Nursing/Provider leave a detailed message: yes [...] documented as of this encounter Care Teams Information Clerk [employer] Relationship Specialty Start Date End Date Shayla Alford D.O. PCP - General Internal Medicine 05/22/[address] [phone] documented as of this encounter
--- OUTSIDE RECORDS SUMMARY | 2022-05-21 11:19 | XMS_ITS | Encounter Summary ---
:1945 Author Organization [facility] Address [address] [place] [address] Care Team Providers Name Role Phone Shayla Alford D.O. Primary Care Provider [phone] Reason for Visit Reason Onset Date Comments Hypertension 05/07/2021 Symptom Assessment 05/07/2021 Encounter Details Date Type Department Care Team Description 05/07/2021 Remote Monitoring Remote Patient Raquel Caldwell, Hypert ension; Symptom Monitoring R.N. Assessment [facility] [address] [facility] [address] [place] [phone] Social History Tobacco Use Types Packs/Day Years [...] do you attend advent or Never 2021 pentecostalism services? Do you belong to any clubs [...] have completed or the highest Martin, MEd, SYSTEM ADMINISTRATION ADVISOR, CAYDEN) degree you have received? Sex Assigned at Date Recorded Male 05/21/2018 2:34 PM CDT documented as of this encounter Progress Notes Raquel Caldwell R.N. - 05/07/2021 8:45 AM CDT Remote Patient Monitoring - RN [...] Jonnathan Costa was called today to discuss blood pressures. Blood pressure 159/76 today. Thiswas not with the new blood pressure monitor. Asked him to hold off on testing blood pressures until the new monitor arrives. He agrees. Patient says he's feeling fine. He denies hypertension symptoms. Medication Discussion: Patient denies difficulty taking medications or obtaining refills from the pharmacy. Next Steps: Patient agrees to continue daily [...] documented as of this encounter Care Teams Hot Plate Press Operator Relationship Specialty Start Date End Date Shayla Alford D.O. PCP - General Internal Medicine 05/22/[address] [phone] documented as of this encounter
--- OUTSIDE RECORDS SUMMARY | 2022-05-21 11:19 | XMS_ITS | Encounter Summary ---
:1945 [address] Organization [facility] Address [address] [place] [address] Care Team Providers Name Role Phone Shayla Alford.OMauro Primary Care Provider [phone] Encounter Details Date Type Department Care Team Description 04/19/2021 Hospital Encounter Department of Radiology Matias muñiz, Pain Hip Left in [facility], Aliciao suman Mcguire, D.O. [address] [place] [address] [place], [place] [phone] Social History Tobacco Use Types Packs/Day [...] or relatives? How often do you attend anabaptist or Never 2021 worship services? Do you belong to any clubs or No 10/09/2021 organizations such as anabaptist groups, unions, fraternal or athletic groups, or [...] have completed or the highest Martin, MEd, AQUATICS MANAGER, CAYDEN) degree you have received? Sex [...] (FREESTYLE SOFYA) times a day. [place] to [facility] [place] Sofya sensor 5 [...] PEN NEEDLE, DIABETIC Yani Fine 30 0 [facility] disposable needles. For use with Insulin Pens, 4 times daily SYRINGE-NEEDLE,INSULIN,0 0 .5 ML (INSULIN SYRINGE [facility]) budesonide-formoteroL Inhale 2 puffs daily 0 10/0 [...] 1 tablet (25 mg 90 tablet 3 06/16 /2021 06/19/2021 (TOPROL-XL) 25 mg 24 hr total) by mouth tabletIndications: daily. Do not crush Hypertension Essential or chew. Primary torsemide (DEMADEX) 20 Take 2 tablets (40 360 tablet 3 02/2205/16/2021 mg tabletIndications: mg total) by mouth 2 Hypertension Essential (two) times a day. Primary traZODone (DESYREL) 100 Take 0.5 tablets (50 30 tablet 1 07/09/2021 mg tablet mg total) by mouth at bedtime as needed for sleep. documented as of this encounter Miscellaneous Notes Result Encounter Note - Shayla Alford D.O. - 04/19/2021 12:29 PM CDT Please, call patient following information. Good news, no fracture or dislocation was seen in the hip joint. I would like you to ice the hip elevate rest and use lidocaine gel and Voltaren gel to help with the pain. Both of these can be found in the pharmacy [id number] Electronically signed by: Shayla Alford D.O. 04/19/21 12:28 PM CDT documented in this encounter Plan of Treatment Not on filedocumented as of this encounter Procedures Procedure Name Priority Date/Time Associated Comments Diagnosis DX HIP AND PELVIS RAD - Routine 04/19/2021 10:48 Pain Hip Left Resu lts for this LEFT 2-3 VIEWS (most inpatients AM CDT procedure are in and all the results outpatients) section. documented in this encounter Results DX Hip And Pelvis Left 2-3 Views (04/19/2021 10:48 AM CDT) Anatomical Region Laterality Modality Lower Extremity, Pelvis, Hip, Musculoskeletal RST LOS, Left Digital Radiography Musculoskeletal ARZ LOS, Muskuloskeletal FLA LOS Specimen (Source) Anatomical Collection Method Collection Time Re ceived Time Location / / Volume Laterality 04/19/2021 11:08 AM CDT Impressions 04/19/2021 11:11 AM CDT No fractures identified in the pelvis or left hip. 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 Coxa magna bilateral ly. Vascular calcification. Narrative 04/19/2021 11:11 AM CDT EXAM: ??DX HIP AND PELVIS LEFT 2-3 VIEWS Procedure Note Noemy Loza M.B., Ch.B. - EXAM: DX HIP AND PELVIS LEFT 2-3 VIEWS IMPRESSION: No fractures identified in the pelvis or left hip. 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 Coxa magna bilateral ly. Vascular calcification. Shayla [facility] PROC EDURES documented in this encounter Visit Diagnoses Diagnosis Pain Hip Left documented in this encounter Additional Health Concerns Assessment Noted Time PHQ-9 Depression Total Score: 18 04/28/2018 11:27 AM C DT documented as of this encounter Care Teams Billposting Supervisor Relationship Specialty Start Date End Date Shayla Alford D.O. PCP - General Internal Medicine 05/22/[address] [phone] documented as of this encounter
--- OUTSIDE RECORDS SUMMARY | 2022-05-21 11:19 | XMS_ITS | Encounter Summary ---
:1945 Author Organization [facility] Address [address] [place] [address] Care Team Providers Name Role Phone Shayla Alford D.O. Primary Care Provider [phone] Encounter Details Date Type Department Care Team Description 05/22/2021 Hospital Encounter Department of Alexys Diabete s Mellitus Type Laboratory Medicine Shayla queen, 2 With Coleman navarro in [place] [facility] [place] [address] Hyperglycemic (HCC) [address] [place] [phone] Social History Tobacco Use Types Packs/Day [...] or relatives? How often do you attend lutheran or Never 2021 yarsani services? Do you belong to any clubs or No 10/09/2021 organizations such as lutheran groups, unions, fraternal or athletic groups, or [...] have completed or the highest Martin, MEd, SOCIAL WORK JOB TITLES, CAYDEN) degree you have received? Sex Assigned [...] (FREESTYLE SOFYA) times a day. Use to [facility] scan Sofya sensor 5 times daily and [...] PEN NEEDLE, DIABETIC Yani Fine 30 0 [facility] disposable needles. For use with Insulin Pens, 4 times daily SYRINGE-NEEDLE,INSULIN,0 0 .5 ML (INSULIN SYRINGE [facility]) budesonide-formoteroL Inhale 2 puffs daily 0 10/0 [...] Diagnosis Comme nts HEMOGLOBIN A1C, B Routine 05/22/2021 10:15 Diabetes Mellitus T ype Results for this AM CDT 2 With Diabetic procedure ar e in Nephropathy the results Hyperglycemic (HCC) section. documented in this encounter Results (ABNORMAL) Hemoglobin A1c (05/22/2021 10:15 AM CDT) Analysis Performed At Patho logist Time Signature Hemoglobin A1c, 10.3 (H) 4.2 - 5.6 05/22/2021 OW[facility] B % 1:49 PM CDT Comment: Hemoglobin A1c values greater than or eq ual to 6.5 percent are diagnostic for diabetes mellitus. ?? Diagnosis should be confirmed by repeat testing. ??In diabet ic patients, HbA1c goals should be discussed with healthcar e provider. Specimen Anatomical Collection Method Collection Time Receive d Time (Source) Location / / Volume Laterality Blood (Blood, 05/22/2021 10:15 05/22/2021 1:26 Venous) AM CDT PM CDT Shayla Alford D.O. 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 PCP - General Internal Medicine 05/22/20 [address] [place] [phone] documented as of this encounter
--- OUTSIDE RECORDS SUMMARY | 2022-05-21 11:19 | XMS_ITS | Encounter Summary ---
:1945 Author Organization [facility] Address [address] [place] [address] Care Team Providers Name Role Phone Shayla Alford D.O. Primary Care Provider [phone] Reason for Referral Outpatient (Routine) - Closed Specialty Diagnoses / Procedures Referred By Contact Refer red To Contact Diagnoses Chronic Kidney Disease (CKD), Stage 3b Glomerular Filtration Rate (GFR) 30 To 44 (HCC) Hypertension Essential Primary Melissa Ferrer M.B.B.SMauro [facility] Procedures US Kidneys with Renal Artery Doppler [address] [place] [address] Referral ID Status Reason Start Date Expiration Date Visits Requ ested Visits Authorized [id number] Closed 04/12/2021 04/12/2022 1 1 Reason for Visit Outpatient (Routine) - Closed Specialty Diagnoses / Procedures Referred By Contact Refer red To Contact Diagnoses Chronic Kidney Disease (CKD), Stage 3b Glomerular Filtration Rate (GFR) 30 To 44 (HCC) Hypertension Essential Primary Melissa Ferrer M.B.B.S. [facility] Procedures US Kidneys with Renal Artery Doppler [address] [place] [address] Referral ID Status Reason Start Date Expiration Date Visits Requ ested Visits Authorized [id number] Closed 04/12/2021 04/12/2022 1 1 Encounter Details Date Type Department Care Team Description 04/27/2021 Hospital Encounter Department of [facility], Chronic Kidney Disease (CKD), Stage 3b Glomerular Filtration Rate (GFR) 30 To 44 (HCC); Radiology, Dayo Richardson [facility] Primary Building, in [place], [place] [address] [facility] [address] [place] [phone] [phone] Social History Tobacco Use Types Packs/Day Years [...] do you attend anabaptist or Never 2021 latter day services? Do [...] minutes do you engage in exercise at is 0 min 10/09/2021 level? Stress Answer [...] have completed or the highest Martin, MEd, CUSTOMS AND BORDER PROTECTION OFFICER, [place]) degree you have received? Sex [...] (FREESTYLE SOFYA) times a day. Use to [facility] scan Sofya sensor 5 times daily and [...] ML (INSULIN [place]YR[place]E [facility] budesonide-formoteroL Inhale 2 puffs daily 0 10/0 [...] Procedure Name Priority Date/Time Associated Comments Diagnosis US KIDNEYS WITH RAD - Routine 04/27/2021 10:15 Chronic Kidney Resul ts for this RENAL ARTERY (most inpatients AM CDT Disease (CKD), procedure are in DOPPLER and all Stage 3b the results outpatients) Glomerular section. Filtration Rate (GFR) 30 To 44 (HCC) Hypertension Essential Primary documented in this encounter Results US Kidneys with Renal Artery Doppler (04/27/2021 10:15 AM CDT) Anatomical Region Laterality Modality Abdomen, Renal, Ultrasound RST LOS, Ultrasound ARZ LOS, N/A Ultrasound Ultrasound FLA LOS, Procedural Specimen (Source) Anatomical Collection Method Collection Time Re ceived Time Location / / Volume Laterality 04/27/2021 10:16 AM CDT Impressions 04/27/2021 10:30 AM CDT 1. No evidence for significant renal artery stenosis bilaterally. 2. Elevated resistive indices in the seg mental renal arteries bilaterally consistent with chronic renal disease. 3. Benign right renal cysts, measuring u p to 3.4 cm. Narrative 04/27/2021 10:30 AM CDT EXAM: US KIDNEYS WITH RENAL ARTERY DOPPLER Exam performed with color and spectral D oppler analysis. COMPARISON: Abdominal MR 01/19/2021. FINDINGS: Right kidney: Normal echogenicity and pa renchymal thickness. No hydronephrosis. A few benign simple cysts, measuring up to 3.4 cm. Right renal artery: Negative for stenosi s; single vessel well seen. ?? Left kidney: Normal echogenicity and par enchymal thickness. No hydronephrosis. Left renal artery: Negative for stenosis ; single vessel well seen. ?? Right Renal Measurements: Right renal length: 12.9 cm Mildly elevated right segmental artery R I: Right segmental artery - upper pole RI: 0.87 Right segmental artery - lower pole RI: 0.86 Right renal artery origin PSV: 87 cm/s Right renal artery prox PSV: 105 cm/s Right renal artery mid PSV: 85 cm/s Right renal artery distal PSV: 80 cm/s Left Renal Measurements: Left renal length: 13.0 cm Mildly elevated left segmental artery RI : Left segmental artery - upper pole RI: 0 .84 Left segmental artery - lower pole RI: 0 .87 Left renal artery origin PSV: 61 cm/s Left renal artery prox PSV: 70 cm/s Left renal artery mid PSV: 81 cm/s Left renal artery distal PSV: 77 cm/s Aorta: Normal caliber. Aorta PSV: 69 cm/s Bladder: Normal. Procedure Note Ben Martinez M.D. - 04/27/2021Format ting of this note might be different from the original. EXAM: US KIDNEYS WITH RENAL ARTERY DOPPL ER Exam performed with color and spectral D oppler analysis. COMPARISON: Abdominal MR 01/19/2021. FINDINGS: Right kidney: Normal echogenicity and pa renchymal thickness. No hydronephrosis. A few benign simple cysts, measuring up to 3.4 cm. Right renal artery: Negative for stenosi s; single vessel well seen. Left kidney: Normal echogenicity and par enchymal thickness. No hydronephrosis. Left renal artery: Negative for stenosis ; single vessel well seen. Right Renal Measurements: Right renal length: 12.9 cm Mildly elevated right segmental artery R I: Right segmental artery - upper pole RI: 0.87 Right segmental artery - lower pole RI: 0.86 Right renal artery origin PSV: 87 cm/s Right renal artery prox PSV: 105 cm/s Right renal artery mid PSV: 85 cm/s Right renal artery distal PSV: 80 cm/s Left Renal Measurements: Left renal length: 13.0 cm Mildly elevated left segmental artery RI : Left segmental artery - upper pole RI: 0 .84 Left segmental artery - lower pole RI: 0 .87 Left renal artery origin PSV: 61 cm/s Left renal artery prox PSV: 70 cm/s Left renal artery mid PSV: 81 cm/s Left renal artery distal PSV: 77 cm/s Aorta: Normal caliber. Aorta PSV: 69 cm/s Bladder: Normal. IMPRESSION: 1. No evidence for significant renal art kameron stenosis bilaterally. 2. Elevated resistive indices in the seg mental renal arteries bilaterally consistent with chronic renal disease. 3. Benign right renal cysts, measuring u p to 3.4 cm. Melissa Blackmon IMG US PROCEDURES documented in this encounter Visit Diagnoses Diagnosis Chronic Kidney Disease (CKD), Stage 3b G lomerular Filtration Rate (GFR) 30 To 44 (HCC) Hypertension Essential Primary documented in this encounter Additional Health Concerns Assessment Noted Time PHQ-9 Depression Total Score: 18 04/28/2018 11:27 AM C DT documented as of this encounter Care Teams Industrial Commercial Groundskeeper Relationship Specialty Start Date End Date Shayla Alford D.O. PCP - General Internal Medicine [address] [place] [phone] documented as of this encounter
--- OUTSIDE RECORDS SUMMARY | 2022-05-21 11:20 | XMS_ITS | Encounter Summary ---
:1945 Author Organization [facility] Address [address] [place] [address] Care Team Providers Name Role Phone Shayla Alford D.O. Primary Care Provider [phone] Encounter Details Date Type Department Care Team Description 03/21/2021 Hospital Encounter Department of [facility] Medication Laboratory Medicine n, Gianna Mcguire in [place], [address] [place] [phone] Social History Tobacco Use Types Packs/Day [...] do you attend anabaptism or Never 2021 orthodox services? Do you belong to any [...] have completed or the highest Martin, MEd, DRAMA THERAPIST, CAYDEN) degree you have received? Sex Assigned at Date Recorded Male 05/21/2018 2:34 PM CDT documented as of this encounter Medications at Time of Discharge Medication Sig Dispensed Refills Start Date End Date albuterol inhaler INHALE 2 PUFFS BY 0 INHALATION EVERY 6 HOURS NEEDED FOR SHORTNESS OF BREATHSHAKE WELL (FOR IMMEDIATE RELIEF). atorvastatin (for_LIPITOR) Take 80 mg by 0 80 mg tablet mouth daily. blood sugar diagnostic Reports checking 0 strips 4-5 times daily. budesonide-formoteroL Inhale 2 puffs 2 1 Inhaler 11 06/30/20 20 (SYMBICORT) 160-4.5 (two) times a day. mcg/actuation Start at 1 puff inhalerIndications: Asthma twice daily x 4 Extrinsic Moderate (HCC) weeks, then 2 puffs twice daily if tolerated. cholecalciferol, vitamin Take 1,000 Units 0 D3, 25 mcg (1,000 Unit) by mouth daily. tablet clopidogreL (PLAVIX) 75 mg Take 1 tablet by 0 09/2015 tablet mouth daily. escitalopram (LEXAPRO) 10 Take 1 tablet (10 30 tablet 11 mg tablet mg total) by mouth daily. flash glucose scanning 1 each 5 (five) 1 each 0 03/02/20 21 reader (FREESTYLE SOFYA) times a day. Use misc to scan Sofya sensor 5 times daily [...] (three) times a day with meals. levothyroxine (SYNTHROID, Take 1 tablet (100 90 tablet 3 LEVOTHROID) 100 mcg tablet mcg total) by mouth daily. PEN NEEDLE, DIABETIC MISC Yani Fine 30 0 disposable needles. For use with Insulin Pens, 4 times daily SYRINGE-NEEDLE,INSULIN,0.5 0 ML (INSULIN SYRINGE [facility]) azithromycin (ZITHROMAX) Take 1 tablet (500 5 tablet 0 04/12/2021 500 mg tabletIndications: mg total) by mouth Bronchitis Chronic Simple daily. (HCC) budesonide-formoteroL Inhale 2 puffs 0 06/30/2020 11/19/2021 (SYMBICORT) 160-4.5 daily as needed. mcg/actuation inhaler canagliflozin (INVOKANA) Take 1 tablet (100 30 tablet 3 05/23/2021 100 mg tabletIndications: mg total) by mouth Diabetes Mellitus Type 2 every morning Hyperglycemia (HCC) before breakfast. gemfibroziL (LOPID) 600 mg Take 1 tablet by 0 11/06/2021 tablet mouth. insulin glargine (Lantus Inject 30 Units 0 202011/29/2021 U-100 Insulin) 100 unit/mL under the skin at injectionIndications: bedtime. Diabetes Mellitus Type 2 Hyperglycemia (HCC) lisinopriL Take 1 tablet by 0 11/15/2008 11/06/19 22 (PRINIVIL,ZESTRIL) 10 mg mouth daily. tablet losartan (COZAAR) 25 mg Take 1 tablet (25 90 tablet 3 02/2210/09/2021 tablet mg total) by mouth daily. metFORMIN (GLUMETZA) 1,000 Take 1 tablet by 0 11/07/2021 mg 24 hr tablet mouth daily. methylPREDNISolone (MEDROL Take as directed 21 tablet 0 04/12/2021 DOSEPAK) 4 mg on package. tabletIndications: Bronchitis Chronic Simple (HCC) metoprolol succinate Take 1 tablet (25 90 tablet 3 03/14/20 21 06/19/2021 (TOPROL-XL) 25 mg 24 hr mg total) by mouth tabletIndications: daily. Do not Hypertension Essential crush or chew. Primary torsemide (DEMADEX) 20 mg Take 2 tablets (40 360 tablet 3 05/16/2021 tabletIndications: mg total) by mouth Hypertension Essential 2 (two) times a Primary day. traZODone (DESYREL) 100 mg Take 0.5 tablets 30 tablet 1 07/09/2021 tablet (50 mg total) by mouth at bedtime as needed for sleep. documented as of this encounter Plan of Treatment Not on filedocumented as of this encounter Procedures Procedure Name Priority Date/Time Associated Diagnosis Comme nts HEPATIC FUNCTION Routine 03/21/2021 9:29 AM High Risk Medicati on Results for this PANEL, S CDT procedure are i n the results section. documented in this encounter Results (ABNORMAL) Hepatic Function Panel (03/21/2021 9:29 AM CDT) [facility] Method Time Signature Bilirubin, Total, P 0.3 <=1.2 03/21/2021 [place] mg/dL 11:22 AM CDT Bilirubin, Direct, P <0.2 0.0 - 0.3 03/21/2021 [place] mg/dL 11:29 AM CDT Aspartate 35 8 - 48 03/21/2021 [place] Aminotransferase U/L 11:22 AM CDT (AST), P Alanine 34 7 - 55 03/21/2021 [place] Aminotransferase U/L 11:22 AM CDT (ALT), P Alkaline 133 (H) 40 - 129 03/21/2021 [place] Phosphatase, P U/L 11:22 AM CDT Albumin, P 3.9 3.5 - 5.0 03/21/2021 [place] g/dL 11:22 AM CDT Protein, Total, P 6.7 6.3 - 7.9 03/21/2021 [facility] g/dL 11:22 AM CDT Specimen Anatomical Collection Method Collection Time Receive d Time (Source) Location / / Volume Laterality Blood (Blood, 03/21/2021 9:29 AM 03/21/20 21 Venous) CDT 10:40 AM CDT Shayla Alford D.O. LAB BLOOD ADD-ON Performing Organization Address City/State/ZIP Code Phon e Number [facility]- [address] [place] [address] [place] [address] System in [place] [address] documented in this encounter Visit Diagnoses Diagnosis High Risk Medication documented in this encounter Additional Health Concerns Assessment Noted Time PHQ-9 Depression Total Score: 18 04/28/2018 11:27 AM C DT documented as of this encounter Care Teams Joint Sealer Relationship Specialty Start Date End Date Shayla Alford D.O. PCP - General Internal Medicine 05/22/[address] [place] [address] documented as of this encounter
--- OUTSIDE RECORDS SUMMARY | 2022-05-21 11:20 | XMS_ITS | Encounter Summary ---
:1945 Author Organization [facility] Address [address] [place] [address] Care Team Providers Name Role Phone Shayla Alford D.O. Primary Care Provider [phone] Reason for Visit Reason Comments Follow-up Encounter Details Date Type Department Care Team Description 03/02/2021 Patient Outreach Department of Erica Lin Follow -up Cardiovascular Medicine in [place], [place] [phone] [address] [facility] (Work) [place] [address] Social History Tobacco Use Types Packs/Day Years [...] or relatives? How often do you attend jain or Never 2021 baptist services? Do you belong to any clubs or No 10/09/2021 organizations such as jain groups, unions, fraternal or athletic groups, or [...] place to sleep or slept in a chcf (including now)? Education Answer Date Recorded What is the highest level of school Master's degree (e.g., M A, MS, 03/23/2019 you have completed or the highest Martin, MEd, DOCK BUILDER, CAYDEN) degree you have received? Sex Assigned at Date Recorded Male 05/21/2018 2:34 PM CDT documented as of this encounter Progress Notes Erica Lin, R.N. - 03/02/2021 1:16 PM CDT SUBJECTIVE CHIEF COMPLAINT / REASON FOR CALL Follow-up Information Discussed Labs drawn yesterday, 03/01/2021 revealed NT proBNP 4755, sodium 137, potassium 3.8, creatinine 1.56, BUN 42. Patient was seen at the [facility] by for post hospital follow-up(patient hospitalized in [place] during the [facility] weekend - for acute heart failure exacerbation an asthma exacerbation. He presented with intermittent wheezing, weight gain, edema and small bilateral pleural effusions. He was put on a Bumex drip overnight and diuresed 9 pounds. Was sent home on home oxygen. Patient's blood pressure at his clinic visit today was 131/66 with a heart rate of 66. His weight was 93.4 kg. He reports that his weight on his home scale had been up to 205 pounds and he is currentlynow at 197 pounds. He denies any lower extremity edema or abdominal distention. He called the local nurse line this morning with fever and cough. During his clinic visit locally today, he was started on a five day course of azithromycin. Mr. Costa reports his breathing is not necessarily any worse however, he cannot say for certain that it is any better either. He currently is taking losartan 25 mg a day, metoprolol 50 mg a day and torsemide 40 mg twice a day. A chest x-ray was obtained at his appointment today however, it is not resulted yet. Patient's , Diallo reports talked about potentially decreasing his torsemide tomorrow to 40 mg in the morning and 20 mg in the afternoon for four days and then decrease to 20 mg twice a day. However, she wanted to see what his chest x-ray showed prior to doing that. PLAN Mr. Costa and his , Diallo advised I would share the above information with Dr. Evans. He was seen and examined today by his local provider-they are waiting further instructions regardingdiuretic dosing. Disposition/Recommendation: notified provider and awaiting recommendations Information/Education: patient/caller able to teach back Caller agreeable to plan of care: yes The following references were used: nursing clinical judgement and provider Dr. Evans ADDENDUM: Reviewed the above with Dr. Evans - with increased NT PRO BNP would be hesitant to decrease his diuretic - will await chest xray results. documented in this encounter Plan of Treatment Not on filedocumented as of this encounter Visit Diagnoses Not on filedocumented in this encounter Additional Health Concerns Assessment Noted Time PHQ-9 Depression Total Score: 18 04/28/2018 11:27 AM C DT documented as of this encounter Care Teams Striper Machine Relationship Specialty Start Date End Date Shayla Alford D.O. PCP - General Internal Medicine 05/22/[address] [address] documented as of this encounter
--- OUTSIDE RECORDS SUMMARY | 2022-05-21 11:20 | XMS_ITS | Encounter Summary ---
:1945 Author Organization [facility] Address [address] [place] [address] Care Team Providers Name Role Phone Shayla Alford D.O. Primary Care Provider Reason for Visit Reason Comments Follow-up Encounter Details Date Type Department Care Team Description 03/09/2021 Clinical Communication Manuel Shabazz Follow-up Center for [facility] and [address] [place] [address] Clinical [facility] in [place], [place] [address] [place] [address] [place] [address] (Work) [phone] Social History Tobacco Use Types Packs/Day Years [...] do you attend hinduism or Never 2021 jehovah's witness services? Do [...] have completed or the highest Martin, MEd, WAITER/WAITRESS CABIN CLASS, CAYDEN) degree you have received? Sex Assigned at Date Recorded Male 05/21/2018 2:34 PM CDT documented as of this encounter Plan of Treatment Not on filedocumented as of this encounter Visit Diagnoses Not on filedocumented in this encounter Additional Health Concerns Assessment Noted Time PHQ-9 Depression Total Score: 18 04/28/2018 11:27 AM C DT documented as of this encounter Care Teams Metal Cnc Operator Relationship Specialty Start Date End Date Shayla Alford D.O. PCP - General Internal Medicine 05/22/[address] [address] documented as of this encounter
--- OUTSIDE RECORDS SUMMARY | 2022-05-21 11:20 | XMS_ITS | Encounter Summary ---
:1945 Author Organization [facility] Address [address] [place] [address] Care Team Providers Name Role Phone Shayla Alford D.O. Primary Care Provider [phone] Encounter Details Date Type Department Care Team Description 04/18/2021 Hospital Encounter Department of [facility], Chronic Kidney Disease (CKD), Stage 3b Glomerular Filtration Rate (GFR) 30 To 44 (HCC); Laboratory Medicine [facility]ateek Torres [facility] [place] [facility] [address] [facility] [address] [place] [phone] Social History Tobacco Use Types Packs/Day Years [...] or relatives? How often do you attend caodaism or Never 2021 yazidi services? Do you belong to any clubs or No 10/09/2021 organizations such as caodaism groups, unions, fraternal or athletic groups, or [...] have completed or the highest Martin, MEd, HOT STICK MAN, CAYDEN) degree you have received? Sex Assigned [...] (FREESTYLE SOFYA) times a day. Use to [facility] scan Sofya sensor 5 times daily and [...] PEN NEEDLE, DIABETIC Yani Fine 30 0 [facility] disposable needles. For use with Insulin Pens, 4 times daily SYRINGE-NEEDLE,INSULIN,0 0 .5 ML (INSULIN SYRINGE [facility]) budesonide-formoteroL Inhale 2 puffs daily 0 10/0 [...] Procedure Name Priority Date/Time Associated Comments Diagnosis ALBUMIN, RANDOM, U Routine 04/18/2021 9:04 AM Chronic Kidney R esults for this CDT Disease (CKD), procedure are in Stage 3b Glomerular the resu lts Filtration Rate section. (GFR) 30 To 44 (HCC) Hypertension Essential Primary URINALYSIS WITH Routine 04/18/2021 9:04 AM Chronic Kidney Resu lts for this MICROSCOPIC CDT Disease (CKD), procedure are in Stage 3b Glomerular the resu lts Filtration Rate section. (GFR) 30 To 44 (HCC) Hypertension Essential Primary documented in this encounter Results (ABNORMAL) Albumin, Random, Urine (04/18/2021 9:04 AM CDT) [facility] gist Method Time Signature Microalbumin 149.0 mg/L 04/18/2021 [facility] 10:16 AM CDT Creatinine 45 mg/dL 04/18/2021 [facility] 9:58 AM CDT Albumin/Creatinin 331 (H) <17 mg/g 04/18/2021 [facility] e Ratio 10:16 AM CDT Specimen Anatomical Collection Method Collection Time Receive d Time (Source) Location / / Volume Laterality Urine (Urine, 04/18/2021 9:04 AM 04/18/20 9:18 Clean Catch) CDT AM CDT Melissa Blackmon LAB URINE ORDERABLES Performing Organization Address City/State/ZIP Code Phon e Number [facility]- [address] [place] [address] [place] [address] System in [place] [address] (ABNORMAL) Urinalysis with Microscopic: Urine, Midstream (04/18/2021 9:04 AM CDT) Analysis Performed At Patho logist Time Signature Source Urine, Urine, 04/18/2021 [facility] Midstream 9:23 AM CDT Clarity Clear Clear 04/18/2021 [place] 9:23 AM CDT Color Yellow 04/18/2021 [place] 9:23 AM CDT Comment: ----REFERENCE VALUE---- Colorless Yellow Mitra Blood Negative Negative 04/18/2021 9:23 AM CDT [facility] Nitrite Negative Negative 04/18/2021 9:23 AM CDT [facility] Leukocyte Esterase Negative Negative 04/18/2021 9:23 AM CD T [facility] Protein 30 (A) mg/dL 04/18/2021 9:23 AM CDT [facility] Comment: ----REFERENCE VALUE---- Negative Trace Glucose Negative Negative mg/dL 04/18/2021 9:23 AM CDT OW [facility] Ketone Negative Negative mg/dL 04/18/2021 9:23 AM CDT OW AT Bilirubin Negative Negative 04/18/2021 9:23 AM CDT [facility] pH 5.5 5.0 - 8.0 04/18/2021 9:23 AM CDT [facility] Specific Vanderbilt 1.009 1.001 - 1.035 04/18/2021 9:23 AM CDT [facility] Urobilinogen 0.2 0.2 - 1.0 mg/dL 04/18/2021 9:23 AM CD T [facility] White Blood Cells None Seen /hpf 04/18/2021 9:25 AM CDT [facility] Comment: ----REFERENCE VALUE---- Males: 0-3 Females: 0-10 Unknown: 0-10 Red Blood Cells None Seen 0 - 2 /hpf 04/18/2021 9:25 AM CDT [facility] Specimen Anatomical Collection Method Collection Time Receive d Time (Source) Location / / Volume Laterality Urine (Urine, 04/18/2021 9:04 AM 04/18/20 9:18 Midstream) CDT AM CDT Melissa Blackmon LAB URINE ORDERABLES Performing Organization Address City/State/ZIP Code Phon e Number [facility]- [address] [place] [address] [place] [address] System in [place] [address] documented in this encounter Visit Diagnoses Diagnosis Chronic Kidney Disease (CKD), Stage 3b G lomerular Filtration Rate (GFR) 30 To 44 (HCC) Hypertension Essential Primary documented in this encounter Additional Health Concerns Assessment Noted Time PHQ-9 Depression Total Score: 18 04/28/2018 11:27 AM C DT documented as of this encounter Care Teams Falsework Builder Relationship Specialty Start Date End Date Shayla Alford D.O. PCP - General Internal Medicine 05/22/[address] [place] [address] documented as of this encounter
--- OUTSIDE RECORDS SUMMARY | 2022-05-21 11:20 | XMS_ITS | Encounter Summary ---
:1945 Author Organization [facility] Address [address] [place] [address] Care Team Providers Name Role Phone Shayla Alford D.O. Primary Care Provider Reason for Visit Outpatient (Routine) - Closed Specialty Diagnoses / Procedures Referred By Contact Refer red To Contact Pulmonary Medicine Diagnoses Cough Unspecified Type Dyspnea Multifactorial Asthma Extrinsic Moderate (HCC) [facility] Shayla D.Sabrina [address], [place] [address] Referral ID Status Reason Start Date Expiration Date Visits V isits Requested Authorized [id number] Closed Specialty 03/02/2021 03/02/2022 1 1 Services Required Encounter Details Date Type Department Care Team Description 03/09/2021 Comprehensive Visit Division of [facility], Cough; Pulmonary Medicine Pato Lr Dyspnea Multifactorial; in [place], [facility] [address] [facility] Asthma Extrinsic Moderate (HCC) [place], [place] [address] [facility] [address] [place], [place] [phone] [address] (Work) [phone] Social History Tobacco Use Types Packs/Day Years [...] do you attend taoism or Never 2021 uatsdin services? Do you [...] have completed or the highest Martin, MEd, CUSTOMER ASSISTANCE ASSOCIATE, CAYDEN) degree you have received? Sex Assigned at Date Recorded Male 05/21/2018 2:34 PM CDT documented as of this encounter Last Filed Vital Signs Vital Sign Reading Time Taken Comments Blood Pressure - - Pulse - - Temperature - - Respiratory Rate - - Oxygen Saturation 98% 03/09/2021 8:20 AM CDT Inhaled Oxygen Concentration - - Weight - - Height - - Body Mass Index - - documented in this encounter H&P Notes Be Craig M.D. - 03/09/2021 8:30 AM CDT SUBJECTIVE Referred by: Shayla Alford D.O. [address] [address] CHIEF COMPLAINT / REASON FOR VISIT Mr. Jonnathan Costa is a 75 y.o. male who referred for an evaluation of dyspnea HISTORY OF PRESENT ILLNESS Mr. Costa is a pleasant 75-year-old disabled who comes accompanied by his for a pulmonary evaluation in the context of multidisciplinary evaluation for dyspnea. He has a background history of of stable asthma dating back to an agent orange exposure in the [place]. He has been followed for his asthma previously by my colleague Dr. Damian Sims. Most recent PFTs that I can see showed a normal spirometry in April of 2020, and at that time his exhaled oral Enowas 36.5 within upper lobe and of normal of 39. He has been maintained on Symbicort 2 puffs b.i.d. and albuterol rescue inhaler p.r.n. His asthma has not been a significant management issues and his shortness of breath has mostly been the result of complex heart problems. Intermittently he may have some experienced some exertion the patient has of shortness of breath triggered by viral respiratory tract infections also. Most recently, he was seen by Dr. Evans in cardiology on February 22, and he recommended an optimization of his cardiac medications including discontinuation of amiodarone, nitrates and hydralazine. A couple of days later he was hospitalized for 24 hours in the local hospital in [place] due to balance problems and a fall on 02/25. He was dismissed from that hospital on 2 L per minute of oxygen supplementation. He then contacted his primary physician here, Dr. Reid, who saw him on March 02 and started him on a 5 day course of azithromycin (03/02 to 03/07). The chest roentgenogram obtained at that time showed an increase in the right pleural effusion as well as some atelectasis in the right base. The patient experienced significant continued improvement every day of the 5 day course of antibiotic therapy, and he was able to discontinue oxygen supplementation completely 3 days ago. Currently he feels as best as it gets. His weight is at his target of 200, and he has no lower extremity edema. He does relate some cough triggered by the need to cough up some clear mucus which is facilitated by albuterol use. He currently uses his rescue inhaler about 10 times per week. The following portions of the patient's history were reviewed and updated as appropriate: allergies,current medications, family history, medical history, social history, surgical history and problem list. OBJECTIVE SpO2 98% PHYSICAL EXAM General: Chronically ill appearing. No conversational dyspnea. No coughing during evaluation. Eyes: Anicteric sclerae. Heart: Regular rate and rhythm. Lungs: Large airway rhonchi bilaterally partially clearing with coughing, no wheezes, crackles, or squeaks. Extremities: No peripheral edema. ASSESSMENT / PLAN #1 Cough #2 Dyspnea Multifactorial #3 Asthma Extrinsic Moderate (HCC) Review of the chest roentgenogram dated March 02, 2021 shows an increase in the right pleural effusionwhen compared to the previous chest roentgenogram dated February 13. His most recent NT BNP obtained on March 01 was 4755. It seems that his most recent symptoms were caused by a combination of a respiratory tract infection, fluid overload of a cardiac origin, and subsequent balance problems due to change in cardiac medication. He seems to have recovered pretty well, and the course of antibiotics may have helped. At the moment he seems well compensated, and I recommended that he follow-up with Dr. Evans regarding this still substantially elevated NT BNP. His asthma has been very stable in the background, and is not a significant contributor to his symptoms. Consequently, there is no need for any change in his asthma regimen. I recommended that he avoidcomplete inactivity, but instead, embark on a regular slow walking routine, using a walker because of his balance problems and to avoid any falls. documented in this encounter Plan of Treatment Not on filedocumented as of this encounter Visit Diagnoses Diagnosis Cough Unspecified Type Dyspnea Multifactorial Asthma Extrinsic Moderate (HCC) documented in this encounter Additional Health Concerns Assessment Noted Time PHQ-9 Depression Total Score: 18 04/28/2018 11:27 AM C DT documented as of this encounter Care Teams Emery Wheel Worker Relationship Specialty Start Date End Date Shayla Alford D.O. PCP - General Internal Medicine 05/22/200 [address] [place] [address] documented as of this encounter
--- OUTSIDE RECORDS SUMMARY | 2022-05-21 11:20 | XMS_ITS | Encounter Summary ---
:1945 Author Organization [facility] Address [address] [place] [address] Care Team Providers Name Role Phone Shayla Alford D.O. Primary Care Provider [phone] Encounter Details Date Type Department Care Team Description 03/12/2021 Clinical Communication Department of Internal Andrei Deejs[facility] Medicine in [place], [place], [place].O Ma[place] [address] [place] [phone] Social History Tobacco Use Types Packs/Day Years [...] do you attend christianity or Never 2021 restorationist services? Do you [...] have completed or the highest Martin, MEd, GENERAL TELLER, CAYDEN) degree you have received? Sex Assigned at Date Recorded Male 05/21/2018 2:34 PM CDT documented as of this encounter Miscellaneous Notes Telephone Encounter - Kayli Rivera L.[email or web address] - 03/14/2021 10:44 AM CDT Verbal provided. Telephone Encounter - Shayla Alford D.O. - 03/13/2021 11:01 AM CDT Please evaluate and treat Jonnathan Costa ? Electronically signed by: Shayla Alford D.O. 03/13/21 11:02 AM CDT Telephone Encounter - Irene Luna - 03/12/2021 1:11 PM CDT Reason for Communication: Rose from [facility] is calling in regards to patient. They are needing home care orders for patient. Looking for nursing to evaluate and treat for disease management and education, as well as medication management. Verbal order works for them. Current (Rose) Can Nursing/Provider leave a detailed message: Action Needed: Please review and advise. Name of Medication (if relevant): documented in this encounter Plan of Treatment Not on filedocumented as of this encounter Visit Diagnoses Not on filedocumented in this encounter Additional Health Concerns Assessment Noted Time PHQ-9 Depression Total Score: 18 04/28/2018 11:27 AM C DT documented as of this encounter Care Teams Compensator Worker Relationship Specialty Start Date End Date Shayla Alford D.O. PCP - General Internal Medicine 05/22/20 [address] [place] [phone] documented as of this encounter
--- OUTSIDE RECORDS SUMMARY | 2022-05-21 11:20 | XMS_ITS | Encounter Summary ---
:1945 Author Organization [facility] Address [address] [place] [address] Care Team Providers Name Role Phone Shayla Alford D.O. Primary Care Provider [phone] Reason for Referral Outpatient (Routine) - Closed Specialty Diagnoses / Procedures Referred By Contact Refer red To Contact [facility] [place] ARMAAN Alford SE, D.O. [address] [place] [phone] Referral ID Status Reason Start Date Expiration Date Visits Requ ested Visits Authorized [id number] Closed 03/14/2021 03/14/2022 1 1 Scheduling Instructions Diabetes type II, CHF , asthma Schedule one hour Reason for Visit Reason Comments Follow-up Outpatient (Routine) - Closed Specialty Diagnoses / Procedures Referred By Contact Refer anna To Contact [facility] [place] Alford SE, D.O. [address] [place] [phone] Referral ID Status Reason Start Date Expiration Date Visits Requ ested Visits Authorized [id number] Closed 12/12/2020 12/12/2021 1 1 Encounter Details Date Type Department Care Team Description 03/14/2021 Office Visit Department of Internal Rocío sanders Kidney Disease (CKD), Stage 3b Glomerular Filtration Rate (GFR) 30 To 44 ([facility]) (Primary Dx); Medicine in [place], Shayla D .O. Chronic Systolic (Congestive) Heart Fail ure (HCC); [place] [address] Diabetes Mellitus Type 2 Hyperglycemia ( HCC); [address] [place], [place] Diabetes Mellitus Type 2 Wit h Diabetic Neuropathy (HCC); [place] [address] Hypertension Essential Primary; [phone] Bronchitis Chronic Simple (H CC); Hyperlipidemia; [phone] Unsteadiness Ga it Disorder Non Orthopedic; (Fax) Hypothyroidism; Pancreatitis Ch ronlidya Recurrent (HCC) Social History Tobacco Use Types Packs/Day [...] do you attend hoahaoism or Never 2021 latter day services? Do [...] have completed or the highest Martin, MEd, FORM BUILDER HELPER, CAYDEN) degree you have received? Sex Assigned at Date Recorded Male 05/21/2018 2:34 PM CDT documented as of this encounter Last Filed Vital Signs Vital Sign Reading Time Taken Comments Blood Pressure 140/56 03/14/2021 11:33 AM average of 3 CDT Pulse 44 03/14/2021 11:33 AM average of 3 CDT Temperature 36.7 ??C (98.1 ??F) 03/14/2021 11:33 AM CDT Respiratory Rate 18 03/14/2021 11:33 AM CDT Oxygen Saturation - - Inhaled Oxygen Concentration - - Weight 94.6 kg (208 lb 8.9 oz) 03/14/2021 11:33 AM CDT Height 187 cm (6' 1.62) 03/14/2021 11:33 AM CDT Body Mass Index 27.05 03/14/2021 11:33 AM CDT documented in this encounter Progress Shayla La D.O. - 03/14/2021 11:30 AM CDT SUBJECTIVE CHIEF COMPLAINT / REASON FOR VISIT Jonnathan Costa is a 75 y.o. male who presents for evaluation of Follow-up. HISTORY OF PRESENT ILLNESS Jonnathan Costa is a 75 y.o. male with past medical history significant for CKD stage 3, diabetes type 2 with hyperglycemia, systolic congestive heart failure, asthma, and pleural effusion who presents today with his for a follow-up. The patient presented to the [facility] [[place], [place]] on 02/25/2021 for acute on chronicHFpEF and acute asthma exacerbation. Due to his hospitalization being in [place] his notes are not in our system but hard copy of notes are available for my review today. He had presented with progressive shortness of breath with intermittent wheezing, weight gain, and edema. Chest x- ray showed smallbilateral pleural effusions, new bibasilar atelectasis or consolidations, and prominent pulmonary vasculature. BNP was 1113. Troponin 0 0.028. Creatinine 1.62. Jonnathan was appropriately diuresed on Bumexdrip overnight. He also received scheduled nebulizer treatment with Solu-Medrol. The patient improved significantly. His weight dropped 9 lbs of fluid [211 lbs on discharge, 220 lbs on admission]. His home oxygen test showed oxygen saturation of 90% on room air but with activity saturation dropped to 87%. He was also discharged home on oxygen supplementations at 2L with activity. At our last appointment on 03/02/2021 he stated to be doing better. He is followed by Cardiology. At their appointment on02/22/2021, they have discontinued his medications [amiodarone, hydralazine, and nitrates]. He was started on losartan at a low dose 25 mg daily and directed to increase the metoprolol back to previously tolerated dose of 50 mg daily. It was also discussed that he may benefit from the addition of an SLGT 2 inhibitor instead of metformin. At our last appointment he was switched from metformin to Invokana. Jonntahan has had significant benefit from using the supplemental oxygen and would like to continue using it with activity. His last echocardiogram was 11/17/2020 showed: 1. Mild-moderately enlarged left ventricular chamber size. 2. Estimated left ventricular ejection fraction 50 %. 3. Regional wall motion abnormalities were present (see wall motion graphics). 4. Estimated right ventricular systolic pressure 45 mmHg (systolic blood pressure 135 mmHg). 5. Severely calcified mitral annulus. 6. Mitral valve diastolic mean Doppler gradient 2 mmHg (heart rate 52 BPM). 7. Mild-moderate mitral valve regurgitation. 8. Normal inferior vena cava size with normal inspiratory collapse (>50%). 9. Compared to the report of 04/17/2020 the following changes have occurred: . left ventricular systolic function improved. Regional wall motion abnormalities better visualized today with use of echo enhancing agent. Today he states that he continues to do well. He met virtually with Cardiology on 03/02/2021 and Pulmonology on 03/09/2021. Those notes are reviewed today. Pulmonology felt that his asthma has been well controlled and was not felt to be a contributor to his symptoms. Jonnathan does inquire into if he may increase his activity level. He denies any chest pain, shortness of breath, or headaches. Blood pressure today is 140/56 mmHg. There are no further concerns at this time. The following portions of the patient's history were reviewed and updated as appropriate: allergies,current medications, family history, medical history, social history, surgical history, and problem list. REVIEW OF SYSTEMS A ten point ROS is otherwise negative OBJECTIVE BP 140/56 (BP Location: Left arm, Patient Position: Sitting, Cuff Size: Regular) Comment: average of3 Pulse (!) 44 Comment: average of 3 Temp 36.7 ??C (Temporal) Resp 18 Ht 187 cm Wt 94.6 kg BMI 27.05 kg/m?? PHYSICAL EXAMINATION General Appearance: healthy, alert, no distress. Skin: skin color, texture, turgor normal, no suspicious rashes or lesions. Head: normocephalic, no masses, lesions, tenderness or abnormalities. Neck: Supple, no adenopathy; thyroid symmetric, normal size, no bruits. Lungs: clear to auscultation, no wheezing or rhonchi. Heart: RRR without murmur, gallop, or rubs. No ectopy, No carotid bruits. Extremities: No edema, cyanosis or calf tenderness.. DIAGNOSTICS Component Latest Ref Rng & Units 03/01/2021 03/02/2021 Hemoglobin 13.2 - 16.6 g/dL 11.9 (L) Hematocrit 38.3 - 48.6 % 35.0 (L) Erythrocytes 4.35 - 5.65 x10(12)/L 3.80 (L) MCV 78.2 - 97.9 fL 92.1 RBC Distrib Width 11.8 - 14.5 % 13.2 Platelet Count 135 - 317 x10(9)/L 215 White Blood Cell Count 3.4 - 9.6 x10(9)/L 8.2 Neutrophils 1.56 - 6.45 x10(9)/L 5.97 Lymphocytes 0.95 - 3.07 x10(9)/L 1.18 Monocytes 0.26 - 0.81 x10(9)/L 0.73 Eosinophils 0.03 - 0.48 x10(9)/L 0.33 Basophils 0.01 - 0.08 x10(9)/L 0.03 Creatinine, P 0.74 - 1.35 mg/dL 1.56 (H) eGFR Black >=60 mL/min/BSA 49 (L) eGFR Non-Black >=60 mL/min/BSA 42 (L) BUN, P 8 - 24 mg/dL 42 (H) Potassium, P 3.6 - 5.2 mmol/L 3.8 Sodium, P 135 - 145 mmol/L 137 NT-Pro BNP, P <=119 pg/mL 4755 (H) ASSESSMENT / PLAN #1 Chronic Systolic (Congestive) Heart Failure (HCC). PLAN: The patient presented to the [facility] [[place], [place]] on 02/25/2021 for acute on chronic HFpEF and acute asthma exacerbation. Due to his hospitalization being in [place] his notes are not in our system but hard copy of notes are available for my review today. He had presented with progressive shortness of breath with intermittent wheezing, weight gain, and edema. Chest x- ray showedsmall bilateral pleural effusions, new bibasilar atelectasis or consolidations, and prominent pulmonary vasculature. BNP was 1113. Troponin 0 0.028. Creatinine 1.62. Jonnathan was appropriately diuresed onBumex drip overnight. He also received scheduled nebulizer treatment with Solu-Medrol. The patient im proved significantly. His weight dropped 9 lbs of fluid [211 lbs on discharge, 220 lbs on admission]. His home oxygen test showed oxygen saturation of 90% on room air but with activity saturation dropped to 87%. He was also discharged home on oxygen supplementations at 2L with activity. At our last appointment on 03/02/2021 he stated to be doing better. He is followed by Cardiology. At their appointment on 02/22/2021, they have discontinued his medications [amiodarone, hydralazine, and nitrates]. Hewas started on losartan at a low dose 25 mg daily and directed to increase the metoprolol back to previously tolerated dose of 50 mg daily. It was also discussed that he may benefit from the addition of an SLGT 2 inhibitor instead of metformin. At our last appointment he was switched from metformin toInvokana. Jonnathan has had significant benefit from using the supplemental oxygen and would like to continue using it with activity. His last echocardiogram was 11/17/2020 showed: 1. Mild-moderately enlarged left ventricular chamber size. 2. Estimated left ventricular ejection fraction 50 %. 3. Regional wall motion abnormalities were present (see wall motion graphics). 4. Estimated right ventricular systolic pressure 45 mmHg (systolic blood pressure 135 mmHg). 5. Severely calcified mitral annulus. 6. Mitral valve diastolic mean Doppler gradient 2 mmHg (heart rate 52 BPM). 7. Mild-moderate mitral valve regurgitation. 8. Normal inferior vena cava size with normal inspiratory collapse (>50%). 9. Compared to the report of 04/17/2020 the following changes have occurred: . left ventricular systolic function improved. Regional wall motion abnormalities better visualized today with use of echo enhancing agent. Today he states that he continues to do well. He met virtually with Cardiology on 03/02/2021 and Pulmonology on 03/09/2021. Those notes are reviewed today. He will continue to follow-up with Cardiology. Continue to monitor. Continue current medication regimen. Continue risk factor modifications. He may increase daily activity as tolerated. Monitor daily weights. Encouraged pushing fluids [greater than 64 ounces of water] and avoiding NSAIDs. A repeat NT-Pro B- Type Natriuretic is ordered to be completed : - NT-Pro B-Type Natriuretic Peptide (BNP); Future; Expected date: 04/13/2021 The patient will be notified of the results when available and provided with further recommendationsat that time. Discussed signs and symptoms that would prompt re-evaluation. Notify me with any questions or concerns. #2 Diabetes Mellitus Type 2 Hyperglycemia (HCC). #3 Diabetes Mellitus Type 2 With Diabetic Neuropathy (HCC). PLAN: [facility] provider [facility] the [facility] was interested in starting him on a diabetic medication. Per his Cardiology note, it was discussed that he may benefit from the addition of an SLGT 2 inhibitor instead of metformin due to concerns of renal function. He was subsequently switched to Invokana 100 mg tablet bymouth daily AM. This is refilled today: - canagliflozin (INVOKANA) 100 mg tablet; Take 1 tablet (100 mg total) by mouth every morning beforebreakfast., Starting 03/14/2021, Normal Reviewed the way this medication works and possible side effects. Encouraged ongoing efforts at aggressive lifestyle modifications including regular exercise and a healthy diet. Monitor blood sugars. Creatinine was 1.56 on 03/01/2021. Blood pressure today is 140/56 mmHg. Notify me with any questions or concerns. ?? #4 Chronic Kidney Disease (CKD), Stage 3b Glomerular Filtration Rate (GFR) 30 To 44 (HCC). PLAN: Creatinine was 1.56 on 03/01/2021. Encouraged pushing fluids [greater than 64 ounces of water]and avoiding NSAID u Will repeat a BMP prior to our next visit: - Basic Metabolic Panel; Future; Expected date: 04/13/2021 (Before next visit) #5 Anemia In Chronic Kidney Disease. PLAN: Hemoglobin was 11.9 on 03/02/2021. There is no evidence of bleeding, hematochezia, or melena. A repeat CBC is ordered today: - CBC with Differential, Blood; Future; Expected date: 04/13/2021 #6 Asthma Extrinsic Moderate (HCC). PLAN: Stable. Reviewed his Pulmonology note from 03/09/2021. Continue on current medication regimen. #7 Bronchitis Chronic Simple (HCC). PLAN: Examination today is unremarkable. The patient is provided with a prescription for Azithromycin 250 mg by mouth as directed for 5 days [two tablets on day 1, then one tablet on days 2-5] and Medrol Dosepak to use at the first onset of his symptoms: - azithromycin (ZITHROMAX) 500 mg tablet; Take 1 tablet (500 mg total) by mouth daily., Starting Fri03/14/2021, Normal - methylPREDNISolone (MEDROL DOSEPAK) 4 mg tablet; Take as directed on package., Normal #8 Hypertension Essential Primary; well controlled. PLAN: Blood pressure today is 140/56 mmHg. Doing well on his current regimen. He is provided with a refill for metoprolol succinate 25 mg by mouth daily: - metoprolol succinate (TOPROL-XL) 25 mg 24 hr tablet; Take 1 tablet (25 mg total) by mouth daily. Do not crush or chew., Starting Fri03/14/2021, Until Hali 03/14/2022, Normal Blood pressure goal of <140/80 mmHg. Notify me with any questions or concerns. #9 Hyperlipidemia; on statin therapy. PLAN: Continue on Lipitor 80 mg by mouth daily. #10 Hypothyroidism; on replacement. PLAN: Doing well on levothyroxine 100 mcg by mouth daily. 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 #11 Pancreatitis Chronic Recurrent (HCC). PLAN: This is followed by GI. MRI Abdomen with MRCP on 01/19/2021 showed: 1. Redemonstration of findings of chronic pancreatitis, with a large presumed intraductal stone within the pancreatic head. Overall findings are similar as on the 10/11/2019 CT. 2. No definite pancreatic mass identified, though evaluation is limited without IV contrast. 3. Large right and moderate left pleural effusions. Continue to monitor. Discussed signs and symptoms that would prompt re-evaluation.??Follow-up with GI per their recommendations.?? 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 PLAN: He denies any recent falls or signs of bleeding. Continue fall precautions. #13 Follow-up Visit. PLAN: Return to the clinic in 1 month. PATIENT EDUCATION Patient Education: Ready to learn, no apparent learning barriers were identified; learning preferences include listening. Explained diagnosis and treatment plan; patient expressed understanding of the context. This document serves as a record of services personally performed by Shayla Alford D.O.. Itwas created on their behalf by Sarai Cason, a trained biomedical analytical scientist. The creation of this recordis based on the scribe remotely listening to the visit and the provider's statements to them. This do cument has been checked and approved by the attending provider. Time spent 32 minutes Electronically signed by: Shayla Alford D.O. 03/14/21 2:09 PM CDT documented in this encounter Plan of Treatment Scheduled Referrals Name Type Priority Associated Diagnoses Order S [facility] Internal Outpatient Referral Routine Ex pected: Medicine office 04/13/2021 visit (clinic) (Approximate) , Expires: 03/14/2024 documented as of this encounter Results (ABNORMAL) NT-Pro B-Type Natriuretic Peptide (BNP) (04/18/2021 9:05 AM CDT) P athologist Signature NT-Pro BNP 2917 (H) <=119 pg/mL 04/18/2021 [place] 9:35 AM CDT Comment: NT-proBNP values less than 300 pg/mL hav e a 99% negative predictive value for excluding acute congestive heart xander lure. A cutoff of 1200 pg/mL for patients with an eGFR<60 yields a diagno stic sensitivity and specificity of 89% and 72% for acute congestive heart f ailure. ??A diagnostic NT-proBNP cutoff of 1800 pg/mL has been suggested in adults over 75 years of age in the absence of renal failure. Biotin has been identified by the capri enriquez as a potential interfering substance. ??Higher concentr ations of biotin may be found in multivitamins, hair/nail supple ments, and workout supplements. ??If the result does not [facility] clinical observations, repeat testing after patient refrains fr om the use of supplements for at least 12 hours. Specimen Anatomical Collection Method Collection Time Receive d Time (Source) Location / / Volume Laterality Blood (Blood, 04/18/2021 9:05 AM 04/18/20 9:06 Venous) CDT AM CDT Shayla Alford D.O. LAB BLOOD ADD-ON Performing Organization Address City/State/ZIP Code Phon e Number [facility] [address] [place] [address] [place] [address] System in [place] [address] [facility] (ABNORMAL) CBC with Differential, Blood (04/18/2021 9:05 AM CDT) [facility] Method Time Signature Hemoglobin 12.2 (L) 13.2 - 04/18/2021 [place] 16.6 g/dL 9:11 AM CDT Hematocrit 34.8 (L) 38.3 - 04/18/2021 [place] 48.6 % 9:11 AM CDT Erythrocytes 3.89 (L) 4.35 - 04/18/2021 [place] 5.65 9:11 AM CDT x10(12)/L MCV 89.5 78.2 - 04/18/2021 [place] 97.9 fL 9:11 AM CDT RBC Distrib Width 12.4 11.8 - 04/18/2021 [place] 14.5 % 9:11 AM CDT Platelet Count 188 135 - 317 04/18/2021 [place] x10(9)/L 9:11 AM CDT Leukocytes 7.4 3.4 - 9.6 04/18/2021 [place] x10(9)/L 9:11 AM CDT Neutrophils 5.12 1.56 - 04/18/2021 [place] 6.45 9:11 AM CDT x10(9)/L Lymphocytes 1.22 0.95 - 04/18/2021 [place] 3.07 9:11 AM CDT x10(9)/L Monocytes 0.40 0.26 - 04/18/2021 [place] 0.81 9:11 AM CDT x10(9)/L Eosinophils 0.54 (H) 0.03 - 04/18/2021 [place] 0.48 9:11 AM CDT x10(9)/L Basophils 0.07 0.01 - 04/18/2021 [place] 0.08 9:11 AM CDT x10(9)/L Specimen Anatomical Collection Method Collection Time Receive d Time (Source) Location / / Volume Laterality Blood (Blood, 04/18/2021 9:05 AM 04/18/20 9:06 Venous) CDT AM CDT Shayla Alford D.O. LAB BLOOD ADD-ON Performing Organization Address City/State/ZIP Code Phon e Number [facility] [address] [place] [address] [place] [address] System in [place] [address] [place] [address] documented in this encounter Visit Diagnoses Diagnosis Chronic Kidney Disease (CKD), Stage 3b G lomerular Filtration Rate (GFR) 30 To 44 (HCC) - Primary Chronic Systolic (Congestive) Heart Fail ure (HCC) Diabetes Mellitus Type 2 Hyperglycemia ( HCC) 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) Hypertension Essential Primary Bronchitis Chronic Simple (HCC) Hyperlipidemia Unsteadiness Gait Disorder Non Orthopedi c Hypothyroidism Pancreatitis Chronic Recurrent (HCC) documented in this encounter Additional Health Concerns Assessment Noted Time PHQ-9 Depression Total Score: 18 04/28/2018 11:27 AM C DT documented as of this encounter Care Teams Bomb Squad Officer Relationship Specialty Start Date End Date Shayla Alford D.O. PCP - General Internal Medicine 05/22/[address] [phone] documented as of this encounter
--- OUTSIDE RECORDS SUMMARY | 2022-05-21 11:20 | XMS_ITS | Encounter Summary ---
:1945 Author Organization [facility] Address [address] [place] [address] Care Team Providers Name Role Phone Shayla Alford D.O. Primary Care Provider Encounter Details Date Type Department Care Team Description 04/12/2021 Documentation Division of Gastroenterology Justin feng in [facility] Jem [address] [facility] [address] [place] [address] [place], [place] [phone] Social History Tobacco Use Types Packs/Day Years [...] do you attend rastafari or Never 2021 advent services? Do you [...] have completed or the highest Martin, MEd, ENVIRONMENTAL HEALTH TECHNICIAN, [place]) degree you have received? Sex Assigned at Date Recorded Male 05/21/2018 2:34 PM CDT documented as of this encounter Plan of Treatment Not on filedocumented as of this encounter Visit Diagnoses Not on filedocumented in this encounter Additional Health Concerns Assessment Noted Time PHQ-9 Depression Total Score: 18 04/28/2018 11:27 AM C DT documented as of this encounter Care Teams Test Consultant Relationship Specialty Start Date End Date Shayla Alford D.O. PCP - General Internal Medicine 05/22/[address] [phone] documented as of this encounter
--- OUTSIDE RECORDS SUMMARY | 2022-05-21 11:20 | XMS_ITS | Encounter Summary ---
:1945 Author Organization [facility] Address [address] [place] [address] Care Team Providers Name Role Phone Shayla Alford D.O. Primary Care Provider [phone] Reason for Referral Outpatient (Routine) - Closed Specialty Diagnoses / Procedures Referred By Contact Refer red To Contact Nephrology and Melissa Ferrer [facility] M.BMauroBMauroS. [address] [place] [address] Referral ID Status Reason Start Date Expiration Date Visits Requ ested Visits Authorized [id number] Closed 04/12/2021 04/12/2022 1 1 Scheduling Instructions 2 pm please Outpatient (Routine) - Closed Specialty Diagnoses / Procedures Referred By Contact Refer red To Contact Diagnoses Chronic Kidney Disease (CKD), Stage 3b Glomerular Filtration Rate (GFR) 30 To 44 (HCC) Hypertension Essential Primary Melissa Ferrer M.B.B.S. [facility] Procedures US Kidneys with Renal Artery Doppler [address] [place] [address] Referral ID Status Reason Start Date Expiration Date Visits Requ ested Visits Authorized [id number] Closed 04/12/2021 04/12/2022 1 1 Reason for Visit Reason Comments Chronic Kidney Disease Hypertension Outpatient (Routine) - Closed Specialty Diagnoses / Procedures Referred By Contact Refer red To Contact Nephrology and Diagnoses Diabetes Mellitus Type 2 With Diabetic Chronic Kidney Disease Hyperglycemic (HCC) Chronic Kidney Disease (CKD), Stage 3b Glomerular Filtration Rate (GFR) 30 To 44 (HCC) Anemia In Chronic Kidney Disease [facility] Hypertension Tulio Mcguire [address] [place] [phone] Referral ID Status Reason Start Date Expiration Date Visits Requ ested Visits Authorized [id number] Closed 02/13/2021 02/13/2022 1 1 Encounter Details Date Type Department Care Team Description 04/12/2021 Comprehensive Visit Division of Prateek Ferrer Essential Primary (Primary Dx); Nephrology and Melissa, Diabetes Cleo itus Type 2 With Diabetic Chronic Kidney Disease Hyperglycemic (HCC); Hypertension in M.B.B.S. Chronic Kidney Disease (CKD), Stage 3b G lomerular Filtration Rate (GFR) 30 To 44 (HCC); [place], [place] [address] Anemia In Chronic Kidney Dis ease [address] [facility], [address] [place] [phone] Social History Tobacco Use Types Packs/Day Years [...] do you attend orthodox or Never 2021 confucianism services? Do you belong to any clubs or No 10/09/2021 organizations such as orthodox groups, unions, [employer]engage Mobile or athletic groups, or school groups? How [...] have completed or the highest Martin, MEd, GEOSCIENCE SPECIALIST, CAYDEN) degree you have received? Sex Assigned at Date Recorded Male 05/21/2018 2:34 PM CDT documented as of this encounter Last Filed Vital Signs Vital Sign Reading Time Taken Comments Blood Pressure 142/78 04/12/2021 10:28 AM CDT Pulse 45 04/12/2021 10:28 AM CDT Temperature - - Respiratory Rate - - Oxygen Saturation - - Inhaled Oxygen Concentration - - Weight 95.8 kg (211 lb 3.2 oz) 04/12/2021 10:28 AM CDT Height - - Body Mass Index 27.4 03/14/2021 11:33 AM CDT documented in this encounter Consult Notes Melissa Ferrer M.B.BMauroS. - 04/12/2021 10:45 AM CDT Referring Provider: Shayla Alford D.O. SUBJECTIVE REASON FOR CONSULT Chronic kidney disease for evaluation HISTORY OF PRESENT ILLNESS Mr. Costa is a 75 y.o. male who presents with his for evaluation of his chronic kidney disease He had a baseline creatinine of 0.9-1.1 [...] failure. In the setting of salt indiscretion. 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 His medical comorbidities otherwise significant for longstanding diabetes, hypertension, heart failure with preserved ejection fraction, hypothyroidism on levothyroxine therapy, pancreatitis recurrent in the setting of gallstone, asthma well controlled. In January 2021 he had multiple changes [...] nurse that comes home on a weekly basisto check his blood pressures. He was started on Invokana and he has not been able to obtain [facility]. he is now following a strict low-sodium diet. Hydrating himself well. The following portions of the patient's history were reviewed and updated as appropriate: allergies,current medications, family history, medical history, social history, surgical history and problem list. Review of Systems as per HPI OBJECTIVE BP 142/78 Pulse (!) 45 Wt 95.8 kg BMI 27.40 kg/m?? PHYSICAL EXAMINATION Constitutional General: He is not in acute distress. Eyes General: No scleral icterus. Conjunctiva/sclera: Conjunctivae normal. Cardiovascular Rate and Rhythm: Normal rate. Pulmonary Effort: Pulmonary effort is normal. Musculoskeletal [...] fraction 4. Diabetes 5. Recurrent pancreatitis, resolved This pleasant 75-year-old gentleman comes to us for evaluation of his chronic kidney disease. 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 He does have proteinuria which we need to continue to work on. He was recently restarted on his losartan that had been held during 1 of his hospitalization when he had an [place]. They are not sure if he is on the losartan not not and so have requested his spouse to send me a message on the portal and the goal will be to try and get to the maximum tolerated dose. He is mildly bradycardic today even though he had a recent dose adjustment to his metoprolol a month ago. Have requested forthem to track his blood pressures as well as his heart rates closely so that we can reassess the need to cut back on his metoprolol further. We will obtain a repeat urinalysis today. Because he has had hospitalizations recurrent we will get an ultrasound of the renal artery as well to assess for any evidence of renal artery stenosis. With regards to his volume status for now he appears to be euvolemic with the current dosing of torsemide and so we will continue on this. I encouraged oral hydration. I will repeat the BNP when he is back here in a month to trend the values to see if there is any improvement. For his diabetic kidney disease he was recommended to start on invokana and so far he has struggled with obtaining this from the [place] and he will reach out to his primary care physician so that this can be taken care of. I recommended that they also reach out to the [place] diabetic specialist and get an appointment with them so that this can be obtained. Medications adjusted: -continue losartan 25 mg daily, metoprolol 25 mg daily, torsemide 40 mg b.i.d. Monitoring: -blood pressures at home on a weekly basis by the care nurse -urinalysis today, ultrasound renal artery today Follow-up: -in 1 month with labs Lorri Moran documented in this encounter Plan of Treatment Scheduled Referrals Name Type Priority Associated Order Schedule Diagnoses Nephrology and Outpatient Referral Routine Expect ed: Hypertension office 05/16/20 21, visit (clinic) Expires: 04/12/2024 documented as of this encounter Results (ABNORMAL) Albumin, Random, Urine (05/16/2021 1:08 PM CDT) P athologist Signature Albumin, 120.9 mg/L 05/17/2021 DTL Random, U 8:10 AM CDT Comment: ----ADDITIONAL INFORMATION---- This test has been modified from the rachel blunt's instructions. Its performance characteri stics were determined by [facility] in a manner co nsistent with CLIA [...] Laterality Urine (Urine, 05/16/2021 1:08 PM 05/16/20 3:18 Clean Catch) CDT PM CDT Melissa Blackmon LAB URINE ORDERABLES Performing Organization Address City/State/ZIP Code Phon e Number [facility] - [address] [place], [place] [address] [facility] [place] [place] [address] [facility] [address] (ABNORMAL) Urinalysis with Microscopic: Urine, Midstream (05/16/2021 [...] Laterality Urine (Urine, 05/16/2021 1:08 PM 05/16/20 1:45 Midstream) CDT PM CDT Melissa Blackmon LAB URINE ORDERABLES Performing Organization Address City/State/ZIP Code Phon e Number [facility] - [address] [place], [place] [address] [facility] [place] [place] [address] [facility] [address] [place] Kidneys with Renal Artery Doppler (04/27/2021 [...] measuring u p to 3.4 cm. Melissa RiveraSMauro IMG US PROCEDURES (ABNORMAL) Uric Acid (04/18/2021 9:05 AM CDT) P athologist Signature Uric Acid, P 8.2 (H) 3.7 - 8.0 04/18/2021 [facility] mg/dL 4:50 PM CDT Specimen Anatomical Collection Method Collection Time Receive d Time (Source) Location / / Volume Laterality Blood (Blood, 04/18/2021 9:05 AM 04/18/20 4:31 Venous) CDT PM CDT Melissa RiveraSMauro LAB BLOOD ADD-ON Performing Organization Address City/State/ZIP Code Phon e Number [facility]- [address] [place], [place] [id number] [place] [address] LAB [facility] [place], [place] [id number] [place] [address] (ABNORMAL) Renal Function Panel (04/18/2021 9:05 AM CDT) Analysis Performed At Patho logist Time Signature Potassium, P 4.3 3.6 - 5.2 04/18/2021 [place] mmol/L 9:31 AM CDT Sodium, P 139 135 - 145 04/18/2021 [place] mmol/L 9:31 AM CDT Chloride, P 104 98 - 107 04/18/2021 [place] mmol/L 9:31 AM CDT Bicarbonate, P 25 22 - 29 04/18/2021 [place] mmol/L 9:31 AM CDT Anion Gap, P 10 7 - 15 04/18/2021 [place] 9:31 AM CDT BUN (Blood Urea 50 (H) 8 - 24 04/18/2021 [place] Nitrogen), P mg/dL 9:31 AM CDT Creatinine 1.62 (H) 0.74 - 04/18/2021 [place] 1.35 mg/dL 9:31 AM CDT eGFR-Black/Afri 47 (L) >=60 04/18/2021 [place] can Citizen [place] mL/min/BSA 9:31 AM CDT Comment: ----ADDITIONAL INFORMATION---- Estimated GFR calculated using the 2009 CKD_EPI creatinine equation. eGFR Non-Black/ 40 (L) >=60 mL/min/BSA 04/18/2021 9:31 AM CDT [place] Comment: ----ADDITIONAL INFORMATION---- Estimated GFR calculated using the 2009 CKD_EPI creatinine equation. Calcium, Total, P 9.2 8.8 - 10.2 mg/dL 04/18/2021 9:31 AM CDT [place] Glucose, P 300 (H) 70 - 140 mg/dL 04/18/2021 9:31 AM CDT O MARCK Albumin, P 3.9 3.5 - 5.0 g/dL 04/18/2021 9:31 AM CDT O [place] Phosphorus (Inorganic), P 3.2 2.5 - 4.5 mg/dL 04/18/20 4:50 PM CDT [facility] Specimen Anatomical Collection Method Collection Time Receive d Time (Source) Location / / Volume Laterality Blood (Blood, 04/18/2021 9:05 AM 04/18/20 4:31 Venous) CDT PM CDT Narrative [facility] - 04/18/2021 4:50 PM CDT Specimen Information: Specimen ID: [id number] Specimen Type: Blood Specimen Collection Start Date: 04/18/20 ??9:05 AM Specimen Received Date: 04/18/2021 ??4:3 1 PM Specimen ID: [id number] Specimen Type: Blood Specimen Collection Start Date: 04/18/20 ??9:05 AM Specimen Received Date: 04/18/2021 ??9:0 6 AM Melissa Blackmon LAB BLOOD ADD-ON Performing Organization Address City/State/ZIP Code Phon e Number [facility]- [address] [place] [address] [place] [address] System in [place] [address] [place] [address] [facility] [address] (ABNORMAL) Albumin, Random, Urine (04/18/2021 9:04 AM CDT) Patholo gist Method Time Signature Microalbumin 149.0 mg/L [...] Address City/State/ZIP Code Phon e Number [facility]- [address] [place] [address] [place] [address] System in [place] [address] (ABNORMAL) Urinalysis with Microscopic: Urine, Midstream (04/18/2021 [...] 8.0 04/18/2021 9:23 AM CDT [place] Specific [place] 1.009 1.001 - 1.035 04/18/2021 9:23 AM [...] Address City/State/ZIP Code Phon e Number [facility]- [address], [place] [address] [place] [address] System in [place] [address] documented in this encounter Visit Diagnoses Diagnosis Hypertension Essential Primary - Primary Diabetes Mellitus Type 2 With Diabetic C hronic Kidney Disease Hyperglycemic (HCC) Chronic Kidney Disease (CKD), Stage 3b G lomerular Filtration Rate (GFR) 30 To 44 (HCC) Anemia In Chronic Kidney Disease Chronic Kidney Disease (CKD), Stage 3b G lomerular Filtration Rate (GFR) 30 To 44 (HCC) Chronic Systolic (Congestive) Heart Fail ure (HCC) Hypertension Essential Primary Chronic Kidney Disease (CKD), Stage 3b G lomerular Filtration Rate (GFR) 30 To 44 (HCC) Hypertension Essential Primary documented in this encounter Additional Health Concerns Assessment Noted Time PHQ-9 Depression Total Score: 18 04/28/2018 11:27 AM C DT documented as of this encounter Care Teams Personal Clothing Laundry Aide Relationship Specialty Start Date End Date Shayla Alford D.O. PCP - General Internal Medicine 05/22/[address]199 [place] [address] documented as of this encounter
--- OUTSIDE RECORDS SUMMARY | 2022-05-21 11:20 | XMS_ITS | Encounter Summary ---
:1945 Author Organization [facility] Address [address] [place] [address] Care Team Providers Name Role Phone Shayla AlfordOMauro Primary Care Provider [phone] Reason for Visit Reason Comments Form Review [place] med review Canaglifozin Encounter Details Date Type Department Care Team Description 04/18/2021 Clinical Communication Department of Alexys marin Review ([facility] Internal Medicine Shayla queen, review Mehran rodriguez) in [facility] [address] [place] [phone] Social History Tobacco Use Types Packs/Day Years [...] do you attend evangelical or Never 2021 anglican services? Do you [...] have completed or the highest Martin, MEd, GINGER FARMER, CAYDEN) degree you have received? Sex Assigned at Date Recorded Male 05/21/2018 2:34 PM CDT documented as of this encounter Miscellaneous Notes Telephone Encounter - Tari Crystal - 04/20/2021 10:28 AM CDT Received back completed form. Form faxed back to the listed facility. Scanned into [facility] Telephone Encounter - Patience Can - 04/18/2021 12:58 PM CDT Form was emailed to Dr. Reid for electronic review/signature. TELEPHONY ENGINEER:HI PHONE NUMBER: INFO REQUESTEDA med review Eusebia INSTRUCTIONS: fax to [phone] documented in this encounter Plan of Treatment Not on filedocumented as of this encounter Visit Diagnoses Not on filedocumented in this encounter Additional Health Concerns Assessment Noted Time PHQ-9 Depression Total Score: 18 04/28/2018 11:27 AM C DT documented as of this encounter Care Teams Gaming Pit Boss Relationship Specialty Start Date End Date Shayla Alford D.O. PCP - General Internal Medicine 05/22/[address] [address] documented as of this encounter
--- OUTSIDE RECORDS SUMMARY | 2022-05-21 11:20 | XMS_ITS | Encounter Summary ---
:1945 Author Organization [facility] Address [address] [place] [address] Care Team Providers Name Role Phone Shayla Alford D.OMauro Primary Care Provider [phone] Encounter Details Date Type Department Care Team Description 03/02/2021 Hospital Encounter Department of Alexys Cough; Laboratory Medicine Shayla queen, Dyspnea Multifactorial in [place], D.O. [place] [address] [place] [phone] Social History Tobacco Use Types Packs/Day [...] or relatives? How often do you attend restoration or Never 2021 pentecostal services? Do you belong to any clubs or No 10/09/2021 organizations such as restoration groups, unions, fraternal or athletic groups, or [...] have completed or the highest Martin, MEd, NURSING HOME DIRECTOR, CAYDNE) degree you have received? Sex Assigned at [...] PEN NEEDLE, DIABETIC Yani Fine 30 0 [facility] disposable needles. For use with Insulin Pens, 4 times daily SYRINGE-NEEDLE,INSULIN,0 0 .5 ML (INSULIN SYRINGE [facility]) azithromycin (ZITHROMAX) Take 1 tablet (500 5 tablet 0 12/202003/14/2021 500 mg mg total) by mouth tabletIndications: daily. Bronchitis Mucopurulent Chronic (HCC) budesonide-formoteroL Inhale 2 puffs daily 0 1010/201911/19/2021 (SYMBICORT) 160-4.5 as needed. mcg/actuation inhaler canagliflozin (INVOKANA) Take 1 tablet (100 30 tablet 3 12/202003/14/2021 100 mg mg total) by mouth tabletIndications: [...] hr tablet mouth daily. metoprolol succinate Take 2 tablets (50 180 tablet 3 021 03/14/2021 (TOPROL-XL) 25 mg 24 hr mg total) [...] Associated Diagnosis Comme nts CBC WITH Routine 03/02/2021 12:59 Cough Results for this DIFFERENTIAL, B PM CDT Dyspnea Multifactorial pr ocedure are in the results section. documented in this encounter Results (ABNORMAL) CBC with Differential, Blood (03/02/2021 12:59 PM CDT) [facility] Method Time Signature Hemoglobin 11.9 (L) 13.2 - 03/02/2021 [place] 16.6 g/dL 1:02 PM CDT Hematocrit 35.0 (L) 38.3 - 03/02/2021 [place] 48.6 % 1:02 PM CDT Erythrocytes 3.80 (L) 4.35 - 03/02/2021 [place] 5.65 1:02 PM CDT x10(12)/L MCV 92.1 78.2 - 03/02/2021 [place] 97.9 fL 1:02 PM CDT RBC Distrib Width 13.2 11.8 - 03/02/2021 [place] 14.5 % 1:02 PM CDT Platelet Count 215 135 - 317 03/02/2021 [place] x10(9)/L 1:02 PM CDT Leukocytes 8.2 3.4 - 9.6 03/02/2021 [place] x10(9)/L 1:02 PM CDT Neutrophils 5.97 1.56 - 03/02/2021 [place] 6.45 1:02 PM CDT x10(9)/L Lymphocytes 1.18 0.95 - 03/02/2021 [place] 3.07 1:02 PM CDT x10(9)/L Monocytes 0.73 0.26 - 03/02/2021 [place] 0.81 1:02 PM CDT x10(9)/L Eosinophils 0.33 0.03 - 03/02/2021 [place] 0.48 1:02 PM CDT x10(9)/L Basophils 0.03 0.01 - 03/02/2021 [place] 0.08 1:02 PM CDT x10(9)/L Specimen Anatomical Collection Method Collection Time Receive d Time (Source) Location / / Volume Laterality Blood (Blood, 03/02/2021 12:59 03/02/2021 1:00 Venous) PM CDT PM CDT Shayla Alford D.O. LAB BLOOD ADD-ON Performing Organization Address City/State/ZIP Code Phon e Number [facility]- [address] [place] [address] [place] [address] System in [place] [address] [place] [address] documented in this encounter Visit Diagnoses Diagnosis Cough Unspecified Type Dyspnea Multifactorial documented in this encounter Additional Health Concerns Assessment Noted Time PHQ-9 Depression Total Score: 18 04/28/2018 11:27 AM C DT documented as of this encounter Care Teams Foundry Superintendant Relationship Specialty Start Date End Date Shayla Alford D.O. PCP - General Internal Medicine 05/22/[address] [phone] documented as of this encounter
--- OUTSIDE RECORDS SUMMARY | 2022-05-21 11:20 | XMS_ITS | Encounter Summary ---
:1945 Author Organization [facility] Address [address] [place] [address] Care Team Providers Name Role Phone Shayla Alford D.O. Primary Care Provider [phone] Encounter Details Date Type Department Care Team Description 03/02/2021 Clinical Communication Department of Internal Andrei Dejesus Medicine in [place], [place], [place].O Mauro [place] [address] [place] [phone] Social History Tobacco Use Types Packs/Day Years [...] level of school Master's degree (e.g., [place]o Rubio, [place], 03/23/2019 you have completed or the highest Martin, MEd, MEAT DRESSER, CAYDEN) degree you have received? Sex Assigned at Date Recorded Male 05/21/2018 2:34 PM CDT documented as of this encounter Miscellaneous Notes Telephone Encounter - Shayla Alford D.O. - 03/06/2021 11:14 AM CDT Conditions Chronic systolic heart failure COPD Weakness Telephone Encounter - Kayli Rivera LMauroP.N. - 03/05/2021 9:06 AM CDT They need a printed script for the Invokana and chart notes faxed to the [facility] in [place]. They were also wondering on the order for the home health nurse to come out once a week for a vitalscheck. They want it sent to [place] agency. Telephone Encounter - Ai Tellez L.PMauroNMauro - 03/02/2021 3:29 PM CDT Left message for , Dial[place], (MATTHEW on file) to call back. Calling to ask if patient [facility]? And if so, what documentation do they need in order to obtain canagliflozin (Invokana) - Rx and notes? Telephone Encounter - Mamta Olivares - 03/02/2021 2:58 PM CDT Reason for Communication: Patient calling Dr. Madrigal from [place] wanted you aware that Jonnathan's NT PRO BNP is increased, almost double what it was and he wanted you to be aware. She also mentioned the Invokana is about $650.00 a month which it way too much for them to cover the cost - if you need him to be on Invokana or Trulicity that you should have Dr. Cline from the [facility] order it for him andthen [facility] is [facility]. If you need to discuss this farther with her -please call her back at Current Can Nursing/Provider leave a detailed message?: yes you can Did the patient refuse triage through Nurse line? (for symptom based concerns): na Action Needed: Please call her back if you have questions Name of Medication (if relevant): Invokana or Trulicity documented in this encounter Plan of Treatment Not on filedocumented as of this encounter Visit Diagnoses Diagnosis Diabetes Mellitus Type 2 Hyperglycemia ( HCC) documented in this encounter Additional Health Concerns Assessment Noted Time PHQ-9 Depression Total Score: 18 04/28/2018 11:27 AM C DT documented as of this encounter Care Teams Pasteurizing Supervisor Relationship Specialty Start Date End Date Shayla Alford D.O. PCP - General Internal Medicine 05/22/[address] [phone] documented as of this encounter
--- OUTSIDE RECORDS SUMMARY | 2022-05-21 11:20 | XMS_ITS | Encounter Summary ---
:1945 Author Organization [facility] Address [address] [place] [address] Care Team Providers Name Role Phone Shayla Alford D.O. Primary Care Provider [phone] Encounter Details Date Type Department Care Team Description 03/02/2021 Clinical Communication Department of Internal Andrei Dejesus Medicine in [place], [place], [place].O Mauro [place] [address] [place] [phone] Social History Tobacco Use Types Packs/Day Years [...] do you attend yarsanism or Never 2021 oriental orthodox services? Do [...] have completed or the highest Martin, MEd, SUSTAINABILITY CONSULTANT, CAYDEN) degree you have received? Sex Assigned at Date Recorded Male 05/21/2018 2:34 PM CDT documented as of this encounter Miscellaneous Notes Telephone Encounter - Ai Tellez, L.P.N. - 03/02/2021 1:35 PM CDT SUBJECTIVE CHIEF COMPLAINT / REASON FOR CALL No chief complaint on file. Information Discussed Contacted patient per provider's request to relay chest xray results showing early signs of pneumonia. Advised to take prescribed antibiotcs as directed and begin as soon as possible. Also discussed directions for weaning down on torsemide as per discussion at today's visit. The patient states understanding. Advised to call back with any other questions or concerns. PLAN Disposition/Recommendation: self-care is appropriate at this time, patient encouraged to call back with questions Information/Education: patient/caller able to teach back Caller agreeable to plan of care: yes The following references were used: provider Dr. Reid documented in this encounter Plan of Treatment Not on filedocumented as of this encounter Visit Diagnoses Not on filedocumented in this encounter Additional Health Concerns Assessment Noted Time PHQ-9 Depression Total Score: 18 04/28/2018 11:27 AM C DT documented as of this encounter Care Teams Voucher Clerk Relationship Specialty Start Date End Date Shayla Alford D.O. PCP - General Internal Medicine 05/22/[address] [phone] documented as of this encounter
--- OUTSIDE RECORDS SUMMARY | 2022-05-21 11:20 | XMS_ITS | Encounter Summary ---
:1945 Author Organization [facility] Address [address] [place] [address] Care Team Providers Name Role Phone Shayla Alford D.O. Primary Care Provider [phone] Reason for Visit Reason Comments consult request Encounter Details Date Type Department Care Team Description 03/09/2021 Clinical Jesus Cruz, consul t request Communication [facility] for [facility] [address] [facility] [place], [place] [address] [place] [address] [place], [place] [phone] (Work) [phone] Social History Tobacco Use Types Packs/Day Years [...] or relatives? How often do you attend sikh or Never 2021 holiness services? Do you belong to any clubs or No 10/09/2021 organizations such as sikh groups, unions, fraternal or athletic groups, or [...] have completed or the highest Martin, MEd, PATTERNMAKER PRESSURE CAST, CAYEDN) degree you have received? Sex Assigned at Date Recorded Male 05/21/2018 2:34 PM CDT documented as of this encounter Miscellaneous Notes Telephone Encounter - Erica Lin R.N. - 03/12/2021 4:16 PM CDT SUBJECTIVE CHIEF COMPLAINT / REASON FOR CALL consult request Information Discussed I contacted Mr. Costa to follow-up on his request to see Dr. Evans regarding his NT pro BNP reading of 4755. Patient was seen by Pulmonary: Dr. Perri Craig who encouraged patient to follow up with Dr. Evansregarding his NT proBNP. I answered his questions regard the significance of this test result. Unfortunately, Dr. Evans has no openings in the near future. Patient was offered a follow-up appointment with one of our nurse practitioners and he declined. His preference would be to follow with someone who is familiar with him. He reports he sees on 03/14/2021 for follow-up. He is wondering if this is something that she can address. Mr. Costa advised it is common for a patient's primary care provider to follow up with heart failure management and it would be up to . I also advised Dr.Bakkali- Dejesus could reach out to Dr. Evans via phone if needed. PLAN Patient would like to wait until after his appointment with Dr. Alford to decide if he needs to come back to the Heart failure Clinic in [place] for follow-up. Disposition/Recommendation: recommended continue engagement in self-management activities Information/Education: patient/caller able to teach back Caller agreeable to plan of care: yes The following references were used: nursing clinical judgement and provider Dr. Evans Telephone Encounter - Manuel Evans M.D. - 03/12/2021 10:16 AM CDT Please schedule with DOT in [facility] as my appts are far out. HFE orders. Thanks Telephone Encounter - Marce Dean - 03/09/2021 10:27 AM CDT Patient request ?? Goal or summary: Schedule a F2F consult. ?? Additional comments: I received a call from Mr. Costa requesting to see you in clinic soon. I don't see any orders from you so I am not sure what this is pertaining to. He stated I was hospitalized recently and I need to speak with Dr. Evans about a crazy number that measures heart failure. documented in this encounter Plan of Treatment Not on filedocumented as of this encounter Visit Diagnoses Not on filedocumented in this encounter Additional Health Concerns Assessment Noted Time PHQ-9 Depression Total Score: 18 04/28/2018 11:27 AM C DT documented as of this encounter Care Teams Reaming Machine Operator For Plastic Relationship Specialty Start Date End Date Shayla Alford D.O. PCP - General Internal Medicine 05/22/20 [address], [place] [address] documented as of this encounter
--- OUTSIDE RECORDS SUMMARY | 2022-05-21 11:20 | XMS_ITS | Encounter Summary ---
:1945 Author Organization [facility] Address [address] [place] [address] Care Team Providers Name Role Phone Shayla Alford D.O. Primary Care Provider [phone] Encounter Details Date Type Department Care Team Description 03/02/2021 Hospital Encounter Department of Alexys Diabete s Mellitus Type 2 Hyperglycemia (HCC); Radiology in , [facility], [place]; [place], [place] D.O. Dyspnea Multifactorial; [address] Chronic Combined Systolic (C ongestive) And Diastolic (Congestive) Heart Failure (HCC) [facility] [address] [place], [place] [phone] [address] Social History Tobacco Use Types Packs/Day [...] do you attend presybeterian or Never 2021 scientologist services? Do you belong to any clubs [...] have completed or the highest Martin, MEd, INFUSION RN, CAYDEN) degree you have received? Sex Assigned [...] 10 mg tablet total) by mouth daily. insulin aspart U-100 Inject 11 Units 0 [...] SYRINGE-NEEDLE,INSULIN,0 0 .5 ML (INSULIN SYRINGE MISC) azithromycin (ZITHROMAX) Take 1 tablet (500 5 tablet 0 12/202003/14/2021 500 mg mg total) by mouth tabletIndications: daily. Bronchitis Mucopurulent Chronic (HCC) budesonide-formoteroL Inhale 2 puffs daily 0 10/201911/19/2021 [...] Name Priority Date/Time Associated Diagnosis Comme nts DX CHEST AP OR RAD - Routine 03/02/2021 12:41 Diabetes Mellitus Res ults for this PA AND LATERAL 2 (most inpatients PM CDT Type 2 Hyperglycemia procedure are in VIEWS and all (HCC) the results outpatients) Cough section. Dyspnea Multifactorial Chronic 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) documented in this encounter Results DX Chest AP or PA and Lateral 2 Views (03/02/2021 12:41 PM CDT) Anatomical Region Laterality Modality Chest, Thoracic RST LOS, Thoracic ARZ LOS, Thoracic N/A Digital Radiography FLA LOS Specimen (Source) Anatomical Collection Method Collection Time Re ceived Time Location / / Volume Laterality 03/02/2021 1:04 PM CDT Impressions 03/02/2021 1:07 PM CDT Small right pleural effusion has slightly increased. Remainder unchanged. Trace left pleural effusion. Right basilar opacity may be due to atelectasis or scarring. Cardiac silhoue tte within normal limits. Aortic calcification. Mild degenerative change in the spine. Narrative 03/02/2021 1:07 PM CDT EXAM: DX CHEST AP OR PA AND LATERAL 2 VIEWS Procedure Note Marce Colon M.D. - 03/02/2021Form atting of this note might be different from the original. EXAM: DX CHEST AP OR PA AND LATERAL 2 EWS IMPRESSION: Small right pleural effusion has slightl y increased. Remainder unchanged. Trace left pleural effusion. Right basilar opacity may be due to atelectasis or scarring. Cardiac silhoue tte within normal limits. Aortic calcification. Mild degenerative change in the spine. Salwa Bakkali-Derksen D.O. IMG DIAGNOSTIC IMAGING PROC EDURES documented in this encounter Visit Diagnoses Diagnosis Diabetes Mellitus Type 2 Hyperglycemia ( HCC) Cough Unspecified Type Dyspnea Multifactorial Chronic Combined Systolic (Congestive) A nd Diastolic (Congestive) Heart Failure (HCC) documented in this encounter Additional Health Concerns Assessment Noted Time PHQ-9 Depression Total Score: 18 04/28/2018 11:27 AM C DT documented as of this encounter Care Teams State Attorney Relationship Specialty Start Date End Date Shayla Alford D.O. PCP - General Internal Medicine 05/22/[address] [phone] documented as of this encounter
--- OUTSIDE RECORDS SUMMARY | 2022-05-21 11:20 | XMS_ITS | Encounter Summary ---
:1945 Author Organization [facility] Address [address] [place] [address] Care Team Providers Name Role Phone Shayla Alford D.O. Primary Care Provider [phone] Reason for Referral Outpatient (Routine) - Closed Specialty Diagnoses / Procedures Referred By Contact Refer red To Contact [facility] Internal ARMAAN Alford SE, D.O. [address] [place] [phone] Referral ID Status Reason Start Date Expiration Date Visits Requ ested Visits Authorized [id number] Closed 04/19/2021 04/19/2022 1 1 Scheduling Instructions Schedule one hour due to complex medical history CHF, diabetes type 2, copd, hip pain , C KD Reason for Visit Reason Comments Med Management Diabetes Mellitus Outpatient (Routine) - Closed Specialty Diagnoses / Procedures Referred By Contact Refer red To Contact [facility] ARMAAN Alford SE, D.O. [address] [place] [phone] Referral ID Status Reason Start Date Expiration Date Visits Requ ested Visits Authorized [id number] Closed 03/14/2021 03/14/2022 1 1 Encounter Details Date Type Department Care Team Description 04/19/2021 Office Visit Department of Internal Rocío sanders Kidney Disease (CKD), Stage 3b Glomerular Filtration Rate (GFR) 30 To 44 ([facility]) (Primary Dx); Medicine in [place], , Shayla D .O. Chronic Systolic (Congestive) Heart Fail ure (HCC); [place] [address] Diabetes Mellitus Type 2 With Diabetic N ephropathy Hyperglycemic (HCC); [address] [place], [place] Pancreatitis Chronic (HCC); [place] [address] Hypertensive Heart And Chronic Kidney Di sease With Heart Failure And Unspecified Stage Chronic Kidney Disease (HCC); [address] Hypothyroidism; Hypertension Essential Primary; [phone] Pain Hip Left; (Fax) History Of Fall ing; Hypoxia Social History Tobacco Use Types Packs/Day Years [...] do you attend mosque or Never 2021 anglican services? Do you [...] have completed or the highest Martin, MEd, HELP DESK INTERNSHIP, CAYDEN) degree you have received? Sex Assigned at Date Recorded Male 05/21/2018 2:34 PM CDT documented as of this encounter Last Filed Vital Signs Vital Sign Reading Time Taken Comments Blood Pressure 130/60 04/19/2021 9:24 AM CDT Pulse 51 04/19/2021 9:24 AM CDT Temperature 36.6 ??C (97.9 ??F) 04/19/2021 9:24 AM CDT Respiratory Rate - - Oxygen Saturation 96% 04/19/2021 9:24 AM CDT Inhaled Oxygen Concentration - - Weight 97.5 kg (214 lb 15.2 oz) 04/19/2021 9:24 AM CDT Height 189 cm (6' 2.41) 04/19/2021 9:24 AM CDT Body Mass Index 27.3 04/19/2021 9:24 AM CDT documented in this encounter Progress Notes Kayli Rivera, L.P.N. - 04/19/2021 9:30 AM CDT Date 04/19/21 Home Oxygen Assessment Rest/Awake Room Air SpO2 96% Exercise/Activity Room Air SpO2 95% Exercise/Activity with 1 L Oxygen SpO2 98% Shayla Alford D.O. - 04/19/2021 9:30 AM CDT SUBJECTIVE CHIEF COMPLAINT / REASON FOR VISIT Jonnathan Costa is a 75 y.o. male who presents for evaluation of Med Management and Diabetes Mellitus. HISTORY OF PRESENT ILLNESS Jonnathan Costa is a 75 y.o. male with past medical history significant for CKD stage 3, diabetes type 2 with hyperglycemia, systolic congestive heart failure,??asthma,??and pleural effusion??who??presents today??with his ??for a follow-up. I last saw the patient on 03/14/2021. He is doing well overall. Today he reports that his shortness of breath has improved. He is volume stable with no evidence of volume overload. We reviewed his blood work including his kidney function which has also improved. Hedid follow with Nephrology and no further medication adjustments done. He will continue on 25 mg of losartan for proteinuria. ?? In regards to type 2 diabetes, we discussed at length management. We did call the [facility] and spoke with both the [place] [Dr. Johnson Mcnamara] as well as the pharmacist in charge of the diabetes program at the [facility]. We discussed that the patient is not a good candidate for metformin due to decline in kidney function and a GFR of 30 just 3 months ago now back up to 40. We recommended the use of SGLT-2 for kidney and heart benefits. The patient will need to stay with the [facility] in order for him to receive the [employer] Monitoring Program. They stated that if the patient has his diabetes managed at another clinic, they will take the monitor back. During his hospitalization in [facility], the patient was given oxygen. Today we performed oxygen titration study and the patient maintain saturation of greater than 95% while exercising. An order was provided to DC oxygen use. There are no further concerns at this time. ?? The following portions of the patient's history were reviewed and updated as appropriate: allergies,current medications, family history, medical history, social history, surgical history, and problem list. REVIEW OF SYSTEMS A ten point ROS is otherwise negative OBJECTIVE BP 130/60 (BP Location: Right arm, Patient Position: Sitting, Cuff Size: Regular) Pulse (!) 51 Temp 36.6 ??C (Temporal) Ht 189 cm Wt 97.5 kg SpO2 96% BMI 27.30 kg/m?? PHYSICAL EXAMINATION General: Patient alert and oriented, appearing in [...] #1 Diabetes Mellitus Type 2 With Diabetic Nephropathy Hyperglycemic (HCC). PLAN: In regards to type 2 diabetes, we discussed at length management. [facility] and [facility]] as well as the pharmacist in charge of the diabetes program at the [facility]. We discussed that the patient is not a good candidate for metformin due todecline in kidney function and a GFR of 30 just 3 months ago now back up to 40. We recommended the use of SGLT-2 for kidney and heart benefits. The [facility] in [facility] for him to receive the [employer] Monitoring Program. They stated that if the patient has his diabetesmanaged at another clinic, they will take the monitor back. At this point, I recommended the patientto be seen by Endocrine which might allow the patient to receive his SGLT-2 medication approved sooner. Pending those referrals, he will continue on his current medication regimen. Encouraged ongoing efforts at aggressive lifestyle modifications including regular exercise and a healthy diet. Blood pressure today is 130/60 mmHg. We also discussed remote monitoring program which with [facility] with blood pressure management. He has had difficulties managing blood pressure at home and is set up for the remote monitoring program as below. Creatinine was 1.62 on 04/18/2021. Encouraged pushing fluids [greater than 64 ounces of water] and avoiding NSAIDs. A repeat Hemoglobin A1c is ordered to be completed prior to our follow-up appointment: - Hemoglobin A1c; Future; Expected date: 04/19/2021 #2 Chronic Kidney Disease (CKD), Stage 3b Glomerular Filtration Rate (GFR) 30 To 44 (HCC) PLAN: The patient saw Nephrology on 04/12/2021. This note is reviewed today. His last creatinine was1.62 on 04/18/2021. As noted above, he is not a good candidate for metformin due to decline in kidney function. #3 Hypertensive Heart And Chronic Kidney Disease With Heart Failure And Unspecified Stage Chronic Kidney Disease (HCC) PLAN: Blood pressure today is 130/60 mmHg. We also discussed remote monitoring program which with [facility] with blood pressure management. He has had difficulties managing blood pressure at home and a consult for a remote pressure managing is ordered today: - Remote monitoring ([facility]); Future; Expected date: 04/19/2021 I appreciate their assistance. #4 Chronic Systolic (Congestive) Heart Failure (HCC) PLAN: He states that he continues to do well. He met virtually with Cardiology on 03/02/2021 and Pulmonology on 03/09/2021. Those notes are reviewed today. He will continue to follow-up with Cardiology. Continue to monitor. Continue current medication regimen. Continue risk factor modifications. He may increase daily activity as tolerated. Monitor daily weights. Encouraged pushing fluids [greater than 64 ounces of water] and avoiding NSAIDs. Follow-up with Cardiology per their recommendations. Notify me with any questions or concerns. #5 Pancreatitis Chronic (HCC). PLAN: This is followed by GI.??MRI Abdomen with MRCP??on 01/19/2021 showed: 1. Redemonstration of findings of chronic pancreatitis, with a large presumed intraductal stone within the pancreatic head. Overall findings are similar as on??the 10/11/2019 CT. 2. No definite pancreatic mass identified, though evaluation is limited without IV contrast. 3. Large right and moderate left pleural effusions. Continue to monitor. Discussed signs and symptoms that would prompt re-evaluation.??Follow-up with GI per their recommendations.?? #6 Hypothyroidism; on replacement. PLAN: Doing well on levothyroxine 100??mcg by mouth daily. 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 #7 Hypertension Essential Primary. PLAN: Blood pressure today is 130/60 mmHg. Doing well on his current regimen. Continue to monitor blood pressure readings with a goal of <140/80 mmHg. Encouraged ongoing efforts at aggressive lifestyle modifications including regular exercise and a healthy diet. Notify me with any questions or concerns. #8 Pain Hip Left. PLAN: Due to his left hip pain, a left hip and pelvis x-ray is ordered today: - DX Hip And Pelvis Left 2-3 Views; Future; Expected date: 04/19/2021 The patient will be notified of the results when available. #9 History Of Falling. PLAN: He denies any recent falls or signs of bleeding. Continue fall precautions. #10 Hypoxia. PLAN: Today he reports that his shortness of breath has improved. He is volume stable with no evidence of volume overload. Today we performed oxygen titration study and the patient maintain saturation of greater than 95% while exercising. An order was provided to discontinue supplemental oxygen - DME Discontinue supplemental oxygen therapy; #11 Follow-up Visit. PLAN: Return to the clinic in 2 months for a follow-up of CHF, type II diabetes, COPD, Hip Pain, andCKD [schedule 1 hour appointment due to complex medical history]. PATIENT EDUCATION Patient Education: Ready to learn, no apparent learning barriers were identified; learning preferences include listening. Explained diagnosis and treatment plan; patient expressed understanding of the context. This document serves as a record of services personally performed by Shayla Alford D.O.. Itwas created on their behalf by Sarai Cason, a trained medical office assistant instructor. The creation of this recordis based on the scribe remotely listening to the visit and the provider's statements to them. This do cument has been checked and approved by the attending provider. Time spent 62 minutes Electronically signed by: Shayla Alford D.O. 04/20/21 11:01 AM CDT documented in this encounter Plan of Treatment Scheduled Referrals Name Type Priority Associated Diagnoses Order S [facility] Internal Outpatient Referral Routine Ex pected: Medicine office 06/20/2021 visit (clinic) (Approximate) , Expires: 04/19/2024 documented as of this encounter Results (ABNORMAL) Hemoglobin A1c (05/22/2021 [...] City/State/ZIP Code Phon e Number [facility]- [address] [place] [address] [facility] [place] [address] System in [place] [address] DX Hip And Pelvis Left 2-3 Views [...] Coxa magna bilateral ly. Vascular calcification. Shayla MIX DIAGNOSTIC IMAGING PROC EDURES documented in this encounter Visit Diagnoses Diagnosis Chronic Kidney Disease (CKD), Stage 3b G lomerular Filtration Rate (GFR) 30 To 44 (HCC) - Primary Chronic Systolic (Congestive) Heart Fail ure (HCC) Diabetes Mellitus Type 2 With Diabetic N ephropathy Hyperglycemic (HCC) Pancreatitis Chronic (HCC) Hypertensive Heart And Chronic Kidney Di sease With Heart Failure And Unspecified Stage Chronic Kidney Disease (HCC) Hypothyroidism Hypertension Essential Primary Pain Hip Left History Of Falling Hypoxia Pain Hip Left documented in this encounter Additional Health Concerns Assessment Noted Time PHQ-9 Depression Total Score: 18 04/28/2018 11:27 AM C DT documented as of this encounter Care Teams Gardening Instructor Relationship Specialty Start Date End Date Shayla Alford D.O. PCP - General Internal Medicine 05/22/[address] [phone] documented as of this encounter
--- OUTSIDE RECORDS SUMMARY | 2022-05-21 11:20 | XMS_ITS | Encounter Summary ---
:[address] [facility] Address [address] [place] [address] Care Team Providers Name Role Phone Shayla Alford D.O. Primary Care Provider [phone] Encounter Details Date Type Department Care Team Description 04/18/2021 Hospital Encounter Department of [place] Chroni c Kidney Disease (CKD), Stage 3b Glomerular Filtration Rate (GFR) 30 To 44 (HCC); Laboratory Medicine nShayla D. O. Chronic Systolic (Congestive) Heart Fail ure (HCC); in [place], [address] Hypertension Es sential Primary [facility] [address] [place] [phone] Social History Tobacco Use [...] do you attend gnosticism or Never 2021 hoahaoism services? Do you belong to any clubs [...] completed or the highest Martin, MEd, MEDICAL PLANNER, [place]) degree you have received? Sex Assigned [...] PEN NEEDLE, DIABETIC Yani Fine 30 0 [facility] disposable needles. For use with Insulin Pens, 4 times daily SYRINGE-NEEDLE,INSULIN,0 0 .5 ML (INSULIN SYRINGE [facility]) budesonide-formoteroL Inhale 2 puffs daily 0 10/0 [...] Procedure Name Priority Date/Time Associated Comments Diagnosis RENAL FUNCTION PANEL, Routine 04/18/2021 9:05 AM Chronic Kidne y Results for this S CDT Disease (CKD), procedure are in Stage 3b Glomerular the resu lts Filtration Rate section. (GFR) 30 To 44 (HCC) Hypertension Essential Primary NT-PRO B-TYPE Routine 04/18/2021 9:05 AM Chronic Systolic Resu lts for this NATRIURETIC PEPTIDE CDT (Congestive) Heart pr ocedure are in (BNP), S Failure (HCC) the results section. CBC WITH Routine 04/18/2021 9:05 AM Chronic Kidney Results for this DIFFERENTIAL, B CDT Disease (CKD), procedure are in Stage 3b Glomerular the resu lts Filtration Rate section. (GFR) 30 To 44 (HCC) URIC ACID, S/P Routine 04/18/2021 9:05 AM Chronic Kidney Resul ts for this CDT Disease (CKD), procedure are in Stage 3b Glomerular the resu lts Filtration Rate section. (GFR) 30 To 44 (HCC) Hypertension Essential Primary documented in this encounter Results (ABNORMAL) Uric Acid (04/18/2021 9:05 AM CDT) P athologist Signature Uric Acid, P 8.2 (H) 3.7 - 8.0 04/18/2021 [facility] mg/dL 4:50 PM CDT Specimen Anatomical Collection Method Collection Time Receive d Time (Source) Location / / Volume Laterality Blood (Blood, 04/18/2021 9:05 AM 04/18/20 4:31 Venous) CDT PM CDT Melissa Blackmon LAB BLOOD ADD-ON Performing Organization Address City/State/ZIP Code Phon e Number [facility]- [address] [place] [address] [facility] [place] [address] [facility] [address] (ABNORMAL) Renal Function [...] eGFR-Black/Afri 47 (L) >=60 04/18/2021 [place] mL/min/BSA 9:31 AM CDT Comment: ----ADDITIONAL INFORMATION---- Estimated GFR calculated using the 2009 CKD_EPI creatinine equation. eGFR Non-Black/ 40 (L) >=60 mL/min/BSA 04/18/2021 9:31 AM CDT [place] Comment: ----ADDITIONAL INFORMATION---- Estimated GFR calculated using [...] 04/18/20 4:31 Venous) CDT PM CDT Narrative [facility] - 04/18/2021 4:50 PM CDT Specimen Information: Specimen ID: [id number] Specimen Type: Blood Specimen Collection Start Date: 04/18/20 ??9:05 AM Specimen Received Date: 04/18/2021 ??4:3 1 PM Specimen ID: [id number] Specimen Type: Blood Specimen Collection Start Date: 04/18/20 ??9:05 AM Specimen Received Date: 04/18/2021 ??9:0 6 AM Melissa Blackmon LAB BLOOD ADD-ON Performing Organization Address City/State/ZIP Code Phon e Number [facility]- [address] [place] [address] [place] [address] System in [place] [address] [place] [place] [address] [facility] [address] (ABNORMAL) NT-Pro B-Type Natriuretic Peptide (BNP) (04/18/2021 9:05 AM CDT) athologist Signature NT-Pro BNP 2917 (H) <=119 [...] supplements. ??If the result does not [facility] clinical observations, repeat testing after patient refrains fr om the use of supplements for at least 12 hours. Specimen Anatomical Collection Method Collection Time Receive d Time (Source) Location / / Volume Laterality Blood (Blood, 04/18/2021 9:05 AM 04/18/20 9:06 Venous) CDT AM CDT Shayla Alford D.O. LAB BLOOD ADD-ON Performing Organization Address City/State/ZIP Code Phon e Number [facility]- [address] [place] [address] [place] [address] System in [place] [address] (ABNORMAL) CBC with Differential, Blood (04/18/2021 9:05 AM CDT) [facility] Method Time Signature Hemoglobin 12.2 (L) 13.2 [...] Organization Address City/State/ZIP Code Phon e Number [facility]- [address] [address] [facility] [place] [address] System in [place] [address] [facility] documented in this encounter Visit Diagnoses Diagnosis Chronic Kidney Disease (CKD), Stage 3b G lomerular Filtration Rate (GFR) 30 To 44 (HCC) Chronic Systolic (Congestive) Heart Fail ure (HCC) Hypertension Essential Primary documented in this encounter Additional Health Concerns Assessment Noted Time PHQ-9 Depression Total Score: 18 04/28/2018 11:27 AM C DT documented as of this encounter Care Teams Communications Department Chair Relationship Specialty Start Date End Date Shayla Alford D.O. PCP - General Internal Medicine 05/22/202199 [place] [address] documented as of this encounter
--- OUTSIDE RECORDS SUMMARY | 2022-05-21 11:21 | XMS_ITS | Encounter Summary ---
:1945 Author Organization [facility] Address [address] [place] [address] Care Team Providers Name Role Phone Shayla Alford D.O. Primary Care Provider [phone] Reason for Visit Reason Comments Follow-up Encounter Details Date Type Department Care Team Description 02/27/2021 Clinical Communication Department of [facility] Cardiovascular Medicine Erica Barber R.N. in [facility] [phone] [address] [facility] (Work) [place] [address] Social History Tobacco Use Types Packs/Day [...] do you attend rastafari or Never 2021 hoahaoism services? Do you [...] have completed or the highest Martin, MEd, EXTRUSION DIE TEMPLATE MAKER, CAYDEN) degree you have received? Sex Assigned at Date Recorded Male 05/21/2018 2:34 PM CDT documented as of this encounter Miscellaneous Notes Telephone Encounter - Erica Lin, RMauroN. - 02/27/2021 3:52 PM CDT SUBJECTIVE CHIEF COMPLAINT / REASON FOR CALL Follow-up Information Discussed Mr. Costa called to report in on his status as he thought we were supposed to talk today. Patient advised a plan was for him to make medication changes outlined by Dr. Evans and have labs drawn on 03/01/2021 with a phone call follow-up once I have those results. Patient reports that he was hospitalized over the weekend in [place] where his [facility] [place] is located. He was hospitalized at and I am able to review the events. Patient was hospitalized for acute on chronic heart failure exacerbation, Moderate asthma with acute exacerbation and Acute hypoxic respiratory failure. He reports he was placed on home oxygen to use 2 liters as needed. He reports that he is feeling better. He reports his medication regimen has stayed the same. He reports swelling in his lower extremities and he is wearing compression stockings and elevating his lower extremities as he is able. He hasa follow-up appointment status post hospitalization with his primary care provider in [place] on Friday03/02/2021. Lastly, patient reports that he fell last night while in the bathroom. He reports he did not turn the light on and reached for the bath tub to lower himself down and he slipped on a magazine. He reports he injured his knee and elbow. He does not believe he lost consciousness or had any dizziness or lig htheadedness prior to the fall. PLAN Patient advised to continue dismissal plans from his recent hospital stay. He reports nothing was changed from his regimen with Dr. Evans. He will obtain labs locally on 03/01/2021 and I will follow-up with him once I have those results. He was advised to follow through with seeing his primary care provider on 03/02/2021 for hospital follow-up. Disposition/Recommendation: recommended continue engagement in self-management activities Information/Education: patient/caller able to teach back Caller agreeable to plan of care: yes The following references were used: nursing clinical judgement and provider Dr. Evans documented in this encounter Plan of Treatment Not on filedocumented as of this encounter Visit Diagnoses Not on filedocumented in this encounter Additional Health Concerns Assessment Noted Time PHQ-9 Depression Total Score: 18 04/28/2018 11:27 AM C DT documented as of this encounter Care Teams Teletypewriter Operator Relationship Specialty Start Date End Date Shayla Alford D.O. PCP - General Internal Medicine 05/22/[address] [phone] documented as of this encounter
--- OUTSIDE RECORDS SUMMARY | 2022-05-21 11:21 | XMS_ITS | Encounter Summary ---
:1945 Author Organization [facility] Address [address] [place] [address] Care Team Providers Name Role Phone Shayla Alford D.O. Primary Care Provider [phone] Reason for Visit Reason Comments Post Hospital Follow-up Completed Encounter Details Date Type Department Care Team Description 02/27/2021 Clinical [facility] Follow-up [facility], in [phone] ([facility] ed) [place], [place] (Work) [address] [place] [address] Social History Tobacco Use Types Packs/Day [...] or relatives? How often do you attend confucianism or Never 2021 episcopalian services? Do you belong to any clubs or No 10/09/2021 organizations such as confucianism groups, unions, fraternal or athletic groups, or [...] have completed or the highest Martin, MEd, CAREERS COUNSELLOR, CAYDEN) degree you have received? Sex Assigned at Date Recorded Male 05/21/2018 2:34 PM CDT documented as of this encounter Miscellaneous Notes Telephone Encounter - Marce Cantu R.N. - 02/27/2021 2:07 PM CDT SUBJECTIVE REASON FOR CALL Post-Hospital follow-up phone call with patient. Admission Date: 02/25/21 Discharge Date: 02/26/21 Discharge Diagnosis: Heart failure and asthma exacerbation General Health Notes today that he is feeling the same since discharged from the hospital. Concerns/questions: Patient has no questions or concerns. Symptom Review Respiratory: Patient stated he is still ahving difficulty breathing, but the same as discharge. Oxygen saturations have been 90-94%. Patient stated home oxygen will be delivered today. Acute pain in ribs from the fall he suffered last night. Activities of Daily Living Patient is independent with activities of daily living. Has the patient had a fall since discharge: yes, patient stated he went to the bathroom in the dark last night. He went to use the tub as support to bend down and slipped on a book. Patient denied lossof conciousness, bruising or bumps, dizziness, confusion, or any bleeding after his knee stopped bleeding. RN informed patient to seek emergency medical treatment if patient starts tobi experience any of these symptoms. Patient stated his grandson is moving in with him soon to start making changes to patient's home including grab bars.. Has ambulation changed since hospitalization: no. Difficulty ambulating: no. The patient lives with spouse. Patient identified if needing assistance, he could depend on and grandson. Wounds/Incisions/Lines, Drains and Airways None Medication Status Current medication list was not reviewed and updated as needed. Reports medication is managed by family member, Roberto. Medications concerns: none. RN informed patient to ask patient's , Diallo, who manages his medications if she has any questions or concerns. If she does, RN told patient to call the clinic back. Medication compliance for current medications: unusre. High Risk Medications Diabetic Medications: type: insulin. Home Services Utilized The patient is not currently receiving home health services. Equipment/Supplies for Home Use Home equipment/supplies were received: patient stated Oxygen is set to be delivered today.. Type of equipment/supplies: oxygen 2 Literes liters/min via nasal cannula. Assessment/Plan Follow-up Appointment PCP Follow-up appointment scheduled: yes; scheduled on March 02 and 11:[address] Reid. The patient plans to go to the appointment and has no concerns about getting there. Recommendations Referral actions: none needed at this time. Additional recommendations: home care instructions reinforced or provided, provider notified and appointment ordered/scheduled as per TCM guidelines. Disposition/Recommendation: notified provider and awaiting recommendations. Education: patient/caller able to teach back. Caller agreeable to plan of care: yes. documented in this encounter Plan of Treatment Not on filedocumented as of this encounter Visit Diagnoses Not on filedocumented in this encounter Additional Health Concerns Assessment Noted Time PHQ-9 Depression Total Score: 18 04/28/2018 11:27 AM C DT documented as of this encounter Care Teams Trades Helper Relationship Specialty Start Date End Date Shayla Alford D.O. PCP - General Internal Medicine 05/22/20 [address], [place] [address] documented as of this encounter
--- OUTSIDE RECORDS SUMMARY | 2022-05-21 11:21 | XMS_ITS | Encounter Summary ---
:1945 Author Organization [facility] Address [address] [place] [address] Care Team Providers Name Role Phone Shayla Alford D.O. Primary Care Provider [phone] Encounter Details Date Type Department Care Team Description 02/23/2021 Clinical Communication Department of Internal Andrei Dejesus Medicine in [place], [place], [place] [address] [place] [phone] Social History Tobacco Use Types Packs/Day Years [...] or relatives? How often do you attend uatsdin or Never 2021 jew services? Do you belong to any clubs or No 10/09/2021 organizations such as uatsdin groups, unions, fraternal or athletic groups, or [...] have completed or the highest Martin, MEd, SECURITIES CLERK, CAYDEN) degree you have received? Sex Assigned at Date Recorded Male 05/21/2018 2:34 PM CDT documented as of this encounter Miscellaneous Notes Telephone Encounter - Shayla Alford D.O. - 02/27/2021 11:45 AM CDT Please use same day slot Electronically signed by: Shayla Alford D.O. 02/27/21 11:46 AM CDT Telephone Encounter - Kiki Gonzalez L.P.N. - 02/27/2021 8:28 AM CDT SUBJECTIVE CHIEF COMPLAINT / REASON FOR CALL No chief complaint on file. PLAN The following information was provided: Called and spoke to pt- I inquired further about his message. I was informed that he had some of hismedications changed from 02/22/21. I confirmed and read to pt the changes. Pt said that his feet are swelling and he needs to see pcp. I informed him that there's no openings today and he would need to go through our scheduling team. I would also send a message to provider. Pt stated that he wanted me to make an appointment for him. I informed him that nursing does not have the ability to schedule ptsand offered to transfer him to scheduling. Pt declined to go through scheduling team. I reinforced to pt that nursing does not schedule pts and he will need to go through scheduling team. Pt stated that last time he was in provider told him if he needed anything to let her know and she will always have time for him. [place] and wants to be seen as soon as he is back in town. Please advise on opening. Information/Education: patient/caller able to teach back The following references were used: none Telephone Encounter - Irina Yi - 02/23/2021 11:40 AM CDT Reason for Communication: Patient called in and wanted to speak with Dr. Andrei Dejesus's nurse about his medication. Patient stated that his provider in [place] changed his medications. Please call patient back Current Can Nursing/Provider leave a detailed message?: Yes Did the patient refuse triage through Nurse line? (for symptom based concerns): Action Needed: Please call patient back Name of Medication (if relevant): documented in this encounter Plan of Treatment Not on filedocumented as of this encounter Visit Diagnoses Not on filedocumented in this encounter Additional Health Concerns Assessment Noted Time PHQ-9 Depression Total Score: 18 04/28/2018 11:27 AM C DT documented as of this encounter Care Teams Electrophysiology Nurse Practitioner Relationship Specialty Start Date End Date Shayla Alford D.O. PCP - General Internal Medicine 05/22/[address] [phone] documented as of this encounter
--- OUTSIDE RECORDS SUMMARY | 2022-05-21 11:21 | XMS_ITS | Encounter Summary ---
:1945 Author Organization [facility] Address [address] [place] [address] Care Team Providers Name Role Phone Shayla Alford D.O. Primary Care Provider [phone] Reason for Referral Outpatient (Routine) - Closed Specialty Diagnoses / Procedures Referred By Contact Refer red To Contact Pulmonary Medicine Diagnoses Cough Unspecified Type Dyspnea Multifactorial Asthma Extrinsic Moderate (HCC) [facility] Tulio Mcguire [address] [place] [address] Referral ID Status Reason Start Date Expiration Date Visits V isits Requested Authorized [id number] Closed Specialty 03/02/2021 03/02/2022 1 1 Services Required Reason for Visit Reason Comments Post Hospital Follow-up CHF-exacerbation Appointment Request (Routine) - Closed Specialty Diagnoses / Procedures Referred By Contact Refer red To Contact Community Internal Medicine Referral ID Status Reason Start Date Expiration Date Visits Requ ested Visits Authorized [id number] Closed 02/27/2021 02/27/2022 1 1 Encounter Details Date Type Department Care Team Description 03/02/2021 Office Visit Department of Internal Rocío Di abetes Mellitus Type 2 Hyperglycemia (HCC) (Primary Dx); Medicine in [facility] Coleman Mcguire Cough; [place] [address] Dyspnea Multifactorial; [address] [place], [place] Asthma Extrinsic Moderate (H CC); [place] [address] Chronic Systolic (Congestive) Heart Fail ure (HCC); [address] Hypothyroidism; Pancreatitis Chronic Recurrent (HCC); [phone] 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 Sex Assigned at Date Recorded Male 05/21/2018 2:34 PM CDT documented as of this encounter Last Filed Vital Signs Vital Sign Reading Time Taken Comments Blood Pressure 131/66 03/02/2021 11:16 AM CDT Pulse 63 03/02/2021 11:16 AM CDT Temperature 37.3 ??C (99.1 ??F) 03/02/2021 11:16 AM CDT Respiratory Rate - - Oxygen Saturation 93% 03/02/2021 11:16 AM CDT Inhaled Oxygen Concentration - - Weight 93.3 kg (205 lb 9.6 oz) 03/02/2021 11:16 AM CDT Height - - Body Mass Index 26.44 02/22/2021 4:26 PM CDT documented in this encounter Progress Notes Shayla Alford D.O. - 03/02/2021 11:30 AM CDT SUBJECTIVE CHIEF COMPLAINT / REASON FOR VISIT Jonnathan Costa is a 75 y.o. male who presents for evaluation of Post Hospital Follow-up (CHF-exacerbation). Transitional care visit. DOA: 02/25/2021. DOD: 02/26/2021. Date of Phone Call: 02/27/2021. HISTORY OF PRESENT ILLNESS Jonnathan Costa is a 75 y.o. male with past medical history significant for CKD stage 3, diabetes type 2 with hyperglycemia, systolic congestive heart failure, asthma, and pleural effusion who presents today with his for a hospital follow-up. The patient presented to the [facility] [[place], [place]] on 02/25/2021 for acute on chronicHFpEF and acute asthma exacerbation. Due to his hospitalization being in [place] his notes are not in our system [...] on oxygen supplementations at 2L with activity. Today he states that he is doing better. He is followed by Cardiology. At their last appointment on 02/22/2021, they have discontinued his medications [amiodarone, hydralazine, and nitrates]. He was started on losartan at a low dose 25 mg daily and directed to increase the metoprolol back to previously tolerated dose of 50 mg daily. It was also discussed that he may benefit from the addition of an SLGT 2 inhibitor instead of metformin. Jonnathan has had significant benefit from using [...] today with use of echo enhancing agent. The following portions of the patient's history were reviewed and updated as appropriate: allergies,current medications, family history, medical history, social history, surgical history, and problem list. REVIEW OF SYSTEMS A ten point ROS is otherwise negative OBJECTIVE BP 131/66 (BP Location: Right arm, Patient Position: Sitting, Cuff Size: Regular) Pulse 63 Temp 37.3 ??C (Temporal) Wt 93.3 kg SpO2 93% BMI 26.44 kg/m?? PHYSICAL EXAMINATION General Appearance: healthy, alert, no distress. Skin: skin color, texture, turgor normal, no suspicious rashes or lesions. Head: normocephalic, no masses, lesions, tenderness or abnormalities. Neck: Supple, no adenopathy; thyroid symmetric, normal size, no bruits. Lungs: Rhonchorous sounds are heard in both upper lobes. He does exhibit a cough during our examination today which is thick. Heart: RRR without murmur, gallop, or rubs. No ectopy, No carotid bruits. Extremities: No edema, cyanosis or calf tenderness.. DIAGNOSTICS Component Latest Ref Rng & Units 03/01/2021 Creatinine, P 0.74 - 1.35 mg/dL 1.56 (H) eGFR Black >=60 mL/min/BSA 49 (L) eGFR Non-Black >=60 mL/min/BSA 42 (L) BUN, P 8 - 24 mg/dL 42 (H) Potassium, P 3.6 - 5.2 mmol/L 3.8 ASSESSMENT / PLAN #1 Chronic Systolic (Congestive) Heart Failure (HCC); status-post hospitalization from 02/25/2021-02/26/2021. 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 PLAN: This is a TCM visit for Jonnathan Costa a 75 y.o. male who was hospitalized from 02/25/2021-02/26/2021 at [facility] [[place], [place]] on 02/25/2021 for acute on chronic HFpEF and acute asthma exacerbation. Due to his hospitalization being in [place] his notes are not in our system but a hard copy of notes are available for my review today. He had presented with progressive shortness of breath with intermittent wheezing, weight gain, and edema. Chest x-ray showed small bilateralpleural effusions, new bibasilar atelectasis or consolidations, and prominent pulmonary vasculature.BNP was 1113. Troponin 0 0.028. Creatinine 1.62. Jonnathan was appropriately diuresed on Bumex drip overnight. He also received scheduled nebulizer treatment with Solu-Medrol. The patient improved significantly. His weight dropped 9 lbs of fluid [211 lbs on discharge, 220 lbs on admission]. His home oxygen test showed oxygen saturation of 90% on room air but with activity saturation dropped to 87%. He was also discharged home on oxygen supplementations at 2L with activity. Today he states to be doing better. All of his hospital notes, studies,a nd recommendations are reviewed. All of his and his 'squestions are answered. I reviewed my concern that there it can be difficult to follow his history and care properly with having too many health system providers managing his health issues. I will helpfacilitate ongoing care and referrals. Continue to monitor. Continue current medication regimen. Continue risk factor modifications. Monitor daily weights. Encouraged pushing fluids [greater than 64 ounces of water] and avoiding NSAIDs. Discussed signs and symptoms that would prompt immediate re-evaluation. Follow-up with Cardiology per their recommendations. Notify me with any questions or concerns. #3 Dyspnea Multifactorial. PLAN: This is multifactorial related to his heart failure, asthma, cough, and current URI. The patient will continue to monitor. He denies any chest pain, palpitations, or headaches. He is empirically treated with an antibiotic as below. We will continue to follow-up with Cardiology per their recommendations. Jonnathan has benefited from the supplemental oxygen and will continue with 2L with activity as previously prescribed. Discussed signs and symptoms that would prompt immediate re-evaluation. #4 Cough. #5 Bronchitis Mucopurulent Chronic (HCC). PLAN: I suspect his symptoms are related to a viral bronchitis. A chest x-ray is ordered today: - DX Chest AP or PA and Lateral 2 Views; Future; Expected date: 03/02/2021 The patient will be notified of the results when available. He is empirically treated with a course of Azithromycin 250 mg by mouth as directed for 5 days [two tablets on day 1, then one tablet on days2-5]. - azithromycin (ZITHROMAX) 500 mg tablet; Take 1 tablet (500 mg total) by mouth daily., Starting Fri03/02/2021, Normal Reviewed symptomatic care measures including pushing fluids, rest, and as needed NSAIDs. Notify me if symptoms persist or worsen. #6 Asthma Extrinsic Moderate (HCC). PLAN: Stable. The patient was previously referred to Pulmonology for further evaluation and recommendations. They have not scheduled this appointment yet and are directed to schedule this at their earlier convenience: - Pulmonary Medicine - General consult (clinic); Future; Expected date: After tests #7 Diabetes Mellitus Type 2 Hyperglycemia (HCC). PLAN: His provider at the [facility] was interested in starting him on a diabetic medication. Per his Cardiology note, it was discussed that he may benefit from the addition of an SLGT 2 inhibitor instead of metformin due to concerns of renal function. He is started on a trial of Invokana 100 mg tablet by mouth daily AM: - canagliflozin (INVOKANA) 100 mg tablet; Take 1 tablet (100 mg total) by mouth every morning beforebreakfast., Starting Fri03/02/2021, Normal Reviewed the way this medication works and possible side effects. Encouraged ongoing efforts at aggressive lifestyle modifications including regular exercise and a healthy diet. Monitor blood sugars. Notify me with any questions or concerns. #8 Anemia In Chronic Kidney Disease. PLAN: Hemoglobin was 11.5 on 02/25/2021. There is no evidence of bleeding, hematochezia, or melena. A repeat CBC is ordered today: - CBC with Differential, Blood; Future; Expected date: 03/02/2021 #9 Hypothyroidism; on replacement. PLAN: Doing well on levothyroxine 100 mcg by mouth daily. 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 #10 Pancreatitis Chronic Recurrent (HCC). PLAN: This is [...] would prompt re-evaluation.??Follow-up with GI per their recommendations. #11 Follow-up Visit. PLAN: Return to the clinic as directed. PATIENT EDUCATION Patient Education: Ready to learn, no apparent learning barriers were identified; learning preferences include listening. Explained diagnosis and treatment plan; patient expressed understanding of the context. This document serves as a record of services personally performed by Shayla Alford D.O.. Itwas created on their behalf by Sarai Cason, a trained medical record specialist. The creation of this recordis based on the scribe remotely listening to the visit and the provider's statements to them. This do cument has been checked and approved by the attending provider. Time spent 52 minutes Electronically signed by: Shayla Alford D.O. 03/02/21 6:02 PM CDT documented in this encounter Plan of Treatment Scheduled Referrals Name Type Priority Associated Diagnoses Order [facility] Pulmonary Medicine Outpatient Referral Routine Cough Expected: - General consult Dyspnea 03/06/2021 , (clinic) Multifactorial Expires: Asthma Extrinsic 03/02/2024 Moderate (HCC) documented as of this encounter Results (ABNORMAL) CBC with Differential, Blood (03/02/2021 12:59 PM CDT) [facility] Method Time Signature Hemoglobin 11.9 (L) 13.2 [...] City/State/ZIP Code Phon e Number [facility]- [address] [place] [address] [facility] [place] [address] System in [place] [address] DX Chest AP or PA and Lateral [...] calcification. Mild degenerative change in the spine. Shayla Alford D.O. IMG DIAGNOSTIC IMAGING PROC EDURES documented in this encounter Visit Diagnoses Diagnosis Diabetes Mellitus Type 2 Hyperglycemia ( HCC) - Primary Cough Unspecified Type Dyspnea Multifactorial Asthma Extrinsic Moderate (HCC) Chronic Systolic (Congestive) Heart Fail ure (HCC) Hypothyroidism Pancreatitis Chronic Recurrent (HCC) Chronic Combined Systolic (Congestive) A nd Diastolic (Congestive) Heart Failure (HCC) Bronchitis Mucopurulent Chronic (HCC) Diabetes Mellitus Type 2 Hyperglycemia ( HCC) Cough Unspecified Type Dyspnea Multifactorial Chronic Combined Systolic (Congestive) A nd Diastolic (Congestive) Heart Failure (HCC) documented in this encounter Additional Health Concerns Assessment Noted Time PHQ-9 Depression Total Score: 18 04/28/2018 11:27 AM C DT documented as of this encounter Care Teams Verify Rep Relationship Specialty Start Date End Date Shayla Alford D.O. PCP - General Internal Medicine 05/22/[address] [phone] documented as of this encounter
--- OUTSIDE RECORDS SUMMARY | 2022-05-21 11:21 | XMS_ITS | Encounter Summary ---
:1945 Author Organization [facility] Address [address] [place] [address] Care Team Providers Name Role Phone Shayla Alford D.O. Primary Care Provider [phone] Reason for Visit Reason Comments Follow-up Encounter Details Date Type Department Care Team Description 02/23/2021 Clinical Communication Department of Renan [facility]jay[facility] Cardiovascular Medicine Erica Barber R.N. in [facility] [phone] [address] [facility] (Work) [place] [address] Social History Tobacco Use Types Packs/Day [...] do you attend orthodox or Never 2021 amish services? 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 Sex Assigned at Date Recorded Male 05/21/2018 2:34 PM CDT documented as of this encounter Miscellaneous Notes Telephone Encounter - Erica Lin, RMauroN. - 02/23/2021 9:59 AM CDT SUBJECTIVE CHIEF COMPLAINT / REASON FOR CALL Follow-up Information Discussed Mr. Costa contacted to review medication changes recommended by Dr. Evans and set up lab follow up for 03/01/2021 at [facility]. Mr. Costa , and his , Diallo-reviewed his after visit summary with me over the phone today. I provided them with additional information as to when to take his medications and necessary lab follow-up. I have also asked him to continue to weigh himself daily and record this information. He has a home blood pressure monitoring cuff and I am asked him to obtain daily blood pressure and heart rate readings. I informed him I will review these numbers with him when I call him regarding his lab test results PLAN Labs scheduled for 9:00 a.m. at [facility] on 03/01/2021. 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 As noted above, reviewed medication changes recommended by Dr. Evans. All questions addressed. Provided him with my contact information to call should questions or problems arise. Disposition/Recommendation: recommended continue engagement in self-management activities Information/Education: patient/caller able to teach back Caller agreeable to plan of care: yes The following references were used: nursing clinical judgement and provider Dr. Evans documented in this encounter Plan of Treatment Not on filedocumented as of this encounter Results (ABNORMAL) NT-Pro B-Type Natriuretic Peptide (BNP) (03/01/2021 12:20 PM CDT) athologist Signature NT-Pro BNP 4755 (H) <=119 pg/mL 03/01/2021 [place] 1:04 PM CDT Comment: NT-proBNP values less than 300 [...] failure. Biotin has been [facility] as a potential interfering substance. ??Higher concentr ations of biotin may be found in multivitamins, hair/nail supple ments, and workout supplements. ??If the result does not [facility] clinical observations, repeat testing after patient refrains fr om the use of supplements for at least 12 hours. Specimen Anatomical Collection Method Collection Time Receive d Time (Source) Location / / Volume Laterality Blood (Blood, 03/01/2021 12:20 03/01/2021 Venous) PM CDT 12:25 PM CDT Manuel Evans M.D. LAB BLOOD ADD-ON Performing Organization Address City/State/ZIP Code Phon e Number [facility]- [address] [place] [address] [place] [address] System in [place] [address] Sodium (03/01/2021 12:20 PM CDT) P athologist Signature Sodium, P 137 135 - 145 03/01/2021 [place] mmol/L 12:59 PM CDT Specimen Anatomical Collection Method Collection Time Receive d Time (Source) Location / / Volume Laterality Blood (Blood, 03/01/2021 12:20 03/01/2021 Venous) PM CDT 12:25 PM CDT Manuel Evans M.D. LAB BLOOD ADD-ON Performing Organization Address City/State/ZIP Code Phon e Number [facility]- [address] [place] [address] [place] [address] System in [place] [address] Potassium (03/01/2021 12:20 PM CDT) P athologist Signature Potassium, P 3.8 3.6 - 5.2 03/01/2021 [place] mmol/L 12:59 PM CDT Specimen Anatomical Collection Method Collection Time Receive d Time (Source) Location / / Volume Laterality Blood (Blood, 03/01/2021 12:20 03/01/2021 Venous) PM CDT 12:25 PM CDT Manuel Evans M.D. LAB BLOOD ADD-ON Performing Organization Address City/State/ZIP Code Phon e Number [facility]- [address] [place] [address] [facility] [place] [address] System in [place] [address] (ABNORMAL) Creatinine with Estimated GFR (03/01/2021 12:20 PM CDT) Analysis Performed At Patho logist Time Signature Creatinine 1.56 (H) 0.74 - 03/01/2021 [place] 1.35 mg/dL 12:59 PM CDT eGFR-Black/Afri 49 (L) >=60 03/01/2021 [place] can [place] mL/min/BSA 12:59 PM CDT Comment: ----ADDITIONAL INFORMATION---- Estimated GFR calculated using the 2009 CKD_EPI creatinine equation. eGFR Non-Black/ 42 (L) >=60 mL/min/BSA 03/01/2021 12:59 PM CDT [place] Comment: ----ADDITIONAL INFORMATION---- Estimated GFR calculated using the 2009 CKD_EPI creatinine equation. Specimen Anatomical Collection Method Collection Time Receive d Time (Source) Location / / Volume Laterality Blood (Blood, 03/01/2021 12:20 03/01/2021 Venous) PM CDT 12:25 PM CDT Manuel Evans M.D. LAB BLOOD ADD-ON Performing Organization Address City/State/ZIP Code Phon e Number [facility]- [address] [place] [address] [place] [address] System in [place] [address] (ABNORMAL) BUN (Blood Urea Nitrogen) (03/01/2021 12:20 PM CDT) P athologist Signature BUN (Blood Urea 42 (H) 8 - 03/01/2021 [place] Nitrogen), P mg/dL 12:59 PM CDT Specimen Anatomical Collection Method Collection Time Receive d Time (Source) Location / / Volume Laterality Blood (Blood, 03/01/2021 12:20 03/01/2021 Venous) PM CDT 12:25 PM CDT Manuel Evans M.D. LAB BLOOD ADD-ON Performing Organization Address City/[facility]/ZIP Code Phon e Number [facility]- [address] [place] [address] [place] [address] System in [place] [address] documented in this encounter Visit Diagnoses Diagnosis Chronic Systolic (Congestive) Heart Fail ure (HCC) - Primary documented in this encounter Additional Health Concerns Assessment Noted Time PHQ-9 Depression Total Score: 18 04/28/2018 11:27 AM C DT documented as of this encounter Care Teams Hoe Runner Relationship Specialty Start Date End Date Shayla Alford D.O. PCP - General Internal Medicine 05/22/[address] [place] [address] documented as of this encounter
--- OUTSIDE RECORDS SUMMARY | 2022-05-21 11:21 | XMS_ITS | Encounter Summary ---
:1945 Author Organization [facility] Address [address] [place] [address] Care Team Providers Name Role Phone Shayla Alford D.O. Primary Care Provider Encounter Details Date Type Department Care Team Description 02/20/2021 Hospital Encounter Department of [place] Hypoth yroidism; Laboratory Medicine n, Gianna Mcguire Chronic Systolic (Congestive) Heart Fail ure (HCC) in [facility] [address] [address] [place] [phone] Social History Tobacco Use Types Packs/Day Years Used Date Smoking Tobacco: Former Cigarettes 2 0 06/29 - 1979 Pipe Smokeless Tobacco: Never [...] do you attend religion or Never 2021 scientology services? Do you belong to any clubs or No 10/09/2021 organizations such as religion groups, unions, fraternal or athletic groups, or [...] have completed or the highest Martin, MEd, ARTIST BLACKSMITH, CAYDEN) degree you have received? Sex Assigned [...] inhalerIndications: twice daily x 4 Asthma Extrinsic Moderate weeks, then 2 puffs (HCC) twice daily if tolerated. cholecalciferol, vitamin Take 1,000 Units by 0 D3, 25 mcg (1,000 Unit) mouth daily. tablet clopidogreL (PLAVIX) 75 Take 1 tablet by 0 2015 mg tablet mouth daily. escitalopram (LEXAPRO) 10 Take 1 tablet (10 mg 30 tablet 11 04/28/2018 mg tablet total) by mouth daily. levothyroxine (SYNTHROID, Take 1 tablet (100 90 tablet 3 LEVOTHROID) 100 mcg mcg total) by mouth tablet daily. PEN NEEDLE, DIABETIC MISC Yani Fine 30 0 disposable needles. For use with Insulin Pens, 4 times daily SYRINGE-NEEDLE,INSULIN,0. 0 5 ML (INSULIN SYRINGE MISC) amiodarone (PACERONE) 200 Take 200 mg by mouth 0 02/22/2021 mg tablet daily. budesonide-formoteroL Inhale 2 puffs daily 0 10/0 10/201911/19/2021 (SYMBICORT) 160-4.5 as needed. mcg/actuation inhaler gemfibroziL (LOPID) 600 Take 1 tablet by 0 200811/06/2021 mg tablet mouth. hydrALAZINE (APRESOLINE) Take 1 tablet (25 mg 90 tablet 11 0 05/06/2020 02/22/2021 25 mg tablet total) by mouth every 8 (eight) hours. insulin aspart U-100 Inject 0.06 mL (6 0 05/06/20 20 02/22/2021 (NovoLOG FlexPen) 100 Units total) under unit/mL (3 mL) injection the skin 3 (three) times a day with meals. Hold if not eating. insulin glargine (Lantus Inject 28 Units 10 mL 12 202002/22/2021 U-100 Insulin) 100 under the skin at unit/mL bedtime. injectionIndications: Diabetes Mellitus Type 2 Hyperglycemia (HCC) isosorbide mononitrate Take 1 tablet (60 mg 0 11/201902/22/2021 (IMDUR) 60 mg 24 hr total) by mouth tabletIndications: daily. 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 tablet metFORMIN (GLUMETZA) Take 1 tablet by 0 9 11/07/2021 1,000 mg 24 hr tablet mouth daily. metoprolol succinate Take 1 tablet (25 mg 90 tablet 3 02/1602/22/2021 (TOPROL-XL) 25 mg 24 hr total) by mouth tabletIndications: daily. Do not crush Hypertension Essential or chew. Primary torsemide (DEMADEX) 20 mg Take 2 tablets (40 60 tablet 3 02/22/2021 tabletIndications: mg total) by mouth Hypertension Essential daily. Primary traZODone (DESYREL) 100 Take 1 tablet (100 30 tablet 1 04/202002/22/2021 mg tablet mg total) by mouth at bedtime as needed for sleep. documented as of this encounter Plan of Treatment Not on filedocumented as of this encounter Procedures Procedure Name Priority Date/Time Associated Diagnosis Comme nts THYROID FUNCTION Routine 02/20/2021 11:09 Chronic Systolic Res ults for this CASCADE, S AM CDT (Congestive) Heart procedure are in Failure (HCC) the results Hypothyroidism section. T3 Routine 02/20/2021 11:09 Hypothyroidism Results f or this (TRIIODOTHYRONINE), AM CDT procedur e are in FREE, S the results section. T4 (THYROXINE), Routine 02/20/2021 11:09 Hypothyroidism Result s for this FREE, S AM CDT procedure are i n the results section. [place] MICROSOMAL AB Routine 02/20/2021 11:06 Results for this EA/TPO AM CDT procedure are i n the results section. documented in this encounter Results (ABNORMAL) Thyroid Function [place] (02/20/2021 11:09 AM CDT) P athologist Signature TSH, Sensitive 7.0 (H) 0.3 - 4.2 02/20/2021 OWAT mIU/L 12:45 PM CDT Specimen Anatomical Collection Method Collection Time Receive d Time (Source) Location / / Volume Laterality Blood (Blood, 02/20/2021 11:09 02/20/2021 Venous) AM CDT 11:15 AM CDT Manuel Evans M.D. LAB BLOOD ADD-ON Performing Organization Address City/State/ZIP Code Phon e Number [facility]- [address] [place] [address] [place] [address] System in [place] [address] T4 (Thyroxine), Free (02/20/2021 11:09 AM CDT) athologist Signature T4 (Thyroxine), 1.3 0.9 - 1.7 02/20/2021 OW Free, P ng/dL 11:51 AM CDT Comment: Biotin has been identified by the capri enriquez as a potential interfering substance. ??Higher concentr ations of biotin may be found in multivitamins, hair/nail supple ments, and workout supplements. ??If the result does not [facility] clinical observations, repeat testing after patient refrains fr om the use of supplements for at least 12 hours. Specimen Anatomical Collection Method Collection Time Receive d Time (Source) Location / / Volume Laterality Blood (Blood, 02/20/2021 11:09 02/20/2021 Venous) AM CDT 11:15 AM CDT Shayla Alford D.O. LAB BLOOD ADD-ON Performing Organization Address City/State/ZIP Code Phon e Number [facility]- [address] [place] [address] [facility] [place] [address] System in [place] [address] (ABNORMAL) T3 (Triiodothyronine), Free (02/20/2021 11:09 AM CDT) athologist Signature T3 2.5 (L) 2.8 - 4.4 02/20/2021 [facility] (Triiodothyron pg/mL 9:56 PM CDT ine), Free, S Specimen Anatomical Collection Method Collection Time Receive d Time (Source) Location / / Volume Laterality Blood (Blood, 02/20/2021 11:09 02/20/2021 9:08 Venous) AM CDT PM CDT Shayla Alford D.O. LAB BLOOD ADD-ON Performing Organization Address City/State/ZIP Code Phon e Number [facility] [address] [place] [address] [facility] [place] [address] Laboratory Medicine and Pathology [address] [place] Thyroperoxidase (TPO) Antibodies, Serum (02/20/2021 11:06 AM CDT) Patholo gist Method Time Signature Thyroperoxidase Ab, 0.8 <9.0 02/21/2021 DTL S IU/mL 11:25 AM CDT Specimen Anatomical Collection Method Collection Time Receive d Time (Source) Location / / Volume Laterality Blood 02/20/2021 11:06 02/21/2021 AM CDT 10:39 AM CDT Manuel Evans M.D. LAB BLOOD NON ADD-ON Performing Organization Address City/State/ZIP Code Phon e Number [facility] - [address] [place], [place] [address] [facility] [place] [address] [facility] [address] documented in this encounter Visit Diagnoses Diagnosis Hypothyroidism Chronic Systolic (Congestive) Heart Fail ure (HCC) documented in this encounter Additional Health Concerns Assessment Noted Time PHQ-9 Depression Total Score: 18 04/28/2018 11:27 AM C DT documented as of this encounter Care Teams Bedspread Folder Relationship Specialty Start Date End Date Shayla Alford D.O. PCP - General Internal Medicine 05/22/202199 [address] [place] [phone] documented as of this encounter
--- OUTSIDE RECORDS SUMMARY | 2022-05-21 11:21 | XMS_ITS | Encounter Summary ---
:1945 Author Organization [facility] Address [address] [place] [address] Care Team Providers Name Role Phone Shayla Alford D.O. Primary Care Provider [phone] Reason for Visit Outpatient (Routine) - Closed Specialty Diagnoses / Procedures Referred By Contact Refer red To Contact Cardiovascular Disease Manuel Evans [place] M.D. 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 Do you belong to any clubs [...] have completed or the highest Martin, MEd, APPLIANCE REPAIR TECHNICIAN, CAYDEN) degree you have received? Sex Assigned at Date Recorded Male 05/21/2018 2:34 PM CDT documented as of this encounter Last Filed Vital Signs Vital Sign Reading Time Taken Comments Blood Pressure 163/83 02/22/2021 4:26 PM CDT Pulse 65 02/22/2021 4:26 PM CDT Temperature - - Respiratory Rate - - Oxygen Saturation - - Inhaled Oxygen Concentration - - Weight 100 kg (221 lb 5.5 oz) 02/22/2021 4:26 PM CDT Height 187.8 cm (6' 1.94) 02/22/2021 4:26 PM CDT Body Mass Index 28.47 02/22/2021 4:26 PM CDT documented in this encounter Consult Notes Manuel Evans M.D. - 02/22/2021 4:30 PM CDT SUBJECTIVE CHIEF COMPLAINT / REASON FOR VISIT Follow-up regarding congestive heart failure ?? HISTORY OF PRESENT ILLNESS reports significant decline since I last saw him. He feels pretty good in the morning wellonce he takes his medications he feels quite fatigued, short of breath with significant mental fogginess. Situation improves throughout the day but he is definitely worse than last fall. Last night he was so short of breath he use a nebulizer treatment. It appeared to me some component of this suggested orthopnea. He does not endorse PND. He reports minimal if any edema. His balance has been a bit worse which he attributes to his neuropathy. There appears to be some general functional decline. They have numerous questions regarding his medical regimen and the possibility of over medication. Diabetic control is appear to be improving and apparently reintroduction of metformin is being considered. He is hoping to get a cutaneous glucose monitor soon. He does report ongoing respiratory symptoms for which he uses rescue inhalers. He reports good compliance with chronic steroid inhaler. His weight has been relatively stable. He does follow sodium and fluid restriction guidelines. Current Outpatient Medications: ??? albuterol inhaler, INHALE [...] by mouth daily., Disp: , Rfl: ??? escitalopram (LEXAPRO) 10 mg tablet, Take 1 tablet (10 mg total) by mouth daily., Disp: 30 tablet, Rfl: 11 ??? insulin aspart U-100 (NovoLOG FlexPen) 100 unit/mL (3 mL) injection, Inject 11 Units under the skin 3 (three) times a day with meals., Disp: , Rfl: ??? insulin glargine (Lantus [...] (TOPROL-XL) 25 mg 24 hr tablet, Take 2 tablets (50 mg total) by mouth daily. Do not crush or chew., Disp: 180 tablet, Rfl: 3 ??? PEN NEEDLE, DIABETIC MISC, Yani Fine 30 disposable needles. For use with Insulin Pens, 4 times daily, Disp: , Rfl: ??? SYRINGE-NEEDLE,INSULIN,0.5 ML (INSULIN SYRINGE MISC), , Disp: , Rfl: ??? torsemide (DEMADEX) 20 mg tablet, Take 2 tablets (40 mg total) by mouth 2 (two) times a day., Disp: 360 tablet, Rfl: 3 ??? traZODone (DESYREL) 100 mg tablet, Take 0.5 tablets (50 mg total) by mouth at bedtime as needed for sleep., Disp: 30 tablet, Rfl: 1 OBJECTIVE Blood Pressure: (163)/(83) 163/83 Pulse Rate: [65] 65 PHYSICAL EXAMINATION General: He is quite unsteady getting out of the wheelchair and into the examining table. Otherwise no acute distress Heart: JVP is elevated. Distant heart tones with a regular rhythm and no murmur or gallop. Quiet precordium Lungs: Clear Abdomen: Soft nondistended no visceromegaly or ascites Extremities: Warm, 1+ edema, no cyanosis DIAGNOSTIC REVIEW All labs and diagnostic studies were reviewed. Most recent blood work is from mid January. Creatinine 1.94, BUN 50, potassium 4.0, most recent hemoglobin 10.7, last NT proBNP 2557October 2020 which was trending down, lipids were noted to be at goal. TSH 7.0 with a free T4 1.3. Chest x-ray documented cardiomegaly with bilateral pleural effusions which were improving. His Holter monitor documented minimal ventricular ectopy. Rhythm was sinus. Rates were pretty low. ?? ASSESSMENT / PLAN #1 Chronic Systolic (Congestive) Heart Failure (HCC) #2 Beat Premature Ventricular #3 Chronic Kidney Disease (CKD), Stage 3b Glomerular Filtration Rate (GFR) 30 To 44 (HCC) #4 Diabetes Mellitus Type 2 With Diabetic Neuropathy (HCC) #5 Diabetes Mellitus Type 2 Hyperglycemia (HCC) #6 Hypertension Essential Primary #7 Hyperlipidemia #8 Hypothyroidism The patient is doing much worse today. He is definitely volume overloaded. This despite the fact that he has PVC burden is quite low and his cardiac function had improved. I inserted and there is an element of heart failure with preserved ejection fraction. He has a typical comorbidities including diabetes, hypertension and chronic kidney disease. I think an over hole of his medical regimen is warranted. My recommendations are as follows. We will increase the torsemide to twice a day dosing. I will discontinue the hydralazine and nitrates. We will start losartan at a low dose 25 mg daily. I will discontinue the amiodarone and slightly increase the metoprolol back to previously tolerated dose of 50mg daily. I think he may benefit from the addition of an SLGT 2 inhibitor instead of metformin. Happy to review with the diabetic team. We will obtain BMP and NT proBNP next week. I will have the nursereach out to him and recheck on status. I will plan to see him back in 3 months for follow-up. Manuel Evans M.D. 02/23/21 documented in this encounter Plan of Treatment Not on filedocumented as of this encounter Visit Diagnoses Diagnosis Chronic Systolic (Congestive) Heart Fail ure (HCC) - Primary Beat Premature Ventricular Chronic Kidney Disease (CKD), Stage 3b G lomerular Filtration Rate (GFR) 30 To 44 (HCC) 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) Diabetes Mellitus Type 2 Hyperglycemia ( HCC) Hypertension Essential Primary Hyperlipidemia Hypothyroidism documented in this encounter Additional Health Concerns Assessment Noted Time PHQ-9 Depression Total Score: 18 04/28/2018 11:27 AM C DT documented as of this encounter Care Teams Ventilator Specialist Relationship Specialty Start Date End Date Shayla Alford D.O. PCP - General Internal Medicine 05/22/[address] [phone] documented as of this encounter
--- OUTSIDE RECORDS SUMMARY | 2022-05-21 11:21 | XMS_ITS | Encounter Summary ---
:1945 Author Organization [facility] Address [address] [place] [address] Care Team Providers Name Role Phone Shayla Alford D.O. Primary Care Provider [phone] Reason for Referral Outpatient (Routine) - Closed Specialty Diagnoses / Procedures Referred By Contact Refer red To Contact Diagnoses Chronic Systolic (Congestive) Heart Failure (HCC) Beat Premature Ventricular Manuel Evans M.D. [facility] Procedures ECG Heart Rhythm Monitor (Holter) [address] [place] [address] Referral ID Status Reason Start Date Expiration Date Visits Requ ested Visits Authorized [id number] Closed 02/01/2021 02/01/2022 1 1 Reason for Visit Outpatient (Routine) - Closed Specialty Diagnoses / Procedures Referred By Contact Refer red To Contact Diagnoses Chronic Systolic (Congestive) Heart Failure (HCC) Beat Premature Ventricular Manuel Evans M.D. [facility] Procedures ECG Heart Rhythm Monitor (Holter) [address] [place] [address] Referral ID Status Reason Start Date Expiration Date Visits Requ ested Visits Authorized [id number] Closed 02/01/2021 02/01/2022 1 1 Encounter Details Date Type Department Care Team Description 02/21/2021 Hospital Encounter Department of Cristina, Chronic Systolic (Congestive) Heart Failure (HCC); Cardiovascular Manuel Barber M.D. Beat Premature Ventricular Diseases in [place], [facility] [address] [place], [place] [address] [address] [place] [phone] (Work) [phone] Social History Tobacco Use Types Packs/Day Years [...] do you attend gnosticism or Never 2021 latter day services? Do [...] have completed or the highest Martin, MEd, HAIRSPRING CUTTER, CAYDEN) degree you have received? Sex [...] bedtime. injectionIndications: Diabetes Mellitus Type 2 Hyperglycemia ([facility]) isosorbide mononitrate Take 1 tablet (60 mg 0 11/201902/22/2021 (IMDUR) 60 mg 24 hr total) by mouth tabletIndications: daily. 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 Ventricular documented in this encounter Results HOLTER MONITOR - IN CLINIC AIR AND HYDRONIC BALANCING TECHNICIAN (02/21/2021 8:20 AM CDT) [facility] Method Time Signature Min Heart Rate 52 bpm HOLTER SENTINEL AF Count 0 count HOLTER SENTINEL SVE Max Per [id number] HOLTER Hour Time SENTINEL Tachycardia 0 count HOLTER Runs SENTINEL SVE Total 80 count HOLTER Beats SENTINEL Mean Heart 68 bpm HOLTER Rate SENTINEL SVT Runs 0 count HOLTER SENTINEL VT Runs 0 count HOLTER SENTINEL Bradycardia 0 count HOLTER Runs SENTINEL Min Heart Rate [id number] HOLTER Time SENTINEL Max Heart Rate [id number] HOLTER Time SENTINEL Max Heart Rate 93 bpm HOLTER SENTINEL SVE Max Per 11 count HOLTER Hour SENTINEL SVE Percent 0 percent HOLTER Beats SENTINEL Recording Date HOLTER SENTINEL VE Max Per [id number] HOLTER Hour Time SENTINEL Holter Pauses 0 count HOLTER SENTINEL VE Max Per 25 count HOLTER Hour SENTINEL VE Percent 0 percent HOLTER Beats SENTINEL Analysis Date 20,210,528 HOLTER SENTINEL VE Total Beats 177 count HOLTER SENTINEL Specimen (Source) Anatomical Collection Method Collection Time Re ceived Time Location / / Volume Laterality 02/21/2021 8:13 AM CDT Narrative This result has an attachment that is no t available. Manuel Evans M.D. CV CARDIAC SERVICES PROCEDUR ES Performing Organization Address City/State/ZIP Code Phon e Number HOLTER SENTINEL HOLTER SENTINEL NA documented in this encounter Visit Diagnoses Diagnosis Chronic Systolic (Congestive) Heart Fail ure (HCC) Beat Premature Ventricular documented in this encounter Additional Health Concerns Assessment Noted Time PHQ-9 Depression Total Score: 18 04/28/2018 11:27 AM C DT documented as of this encounter Care Teams Gaming Table Operator Relationship Specialty Start Date End Date Shayla Alford D.O. PCP - General Internal Medicine 05/22/202199 [address] [address] documented as of this encounter
--- OUTSIDE RECORDS SUMMARY | 2022-05-21 11:21 | XMS_ITS | Encounter Summary ---
:1945 Author Organization [facility] Address [address] [place] [address] Care Team Providers Name Role Phone Shayla Alford D.O. Primary Care Provider [phone] Reason for Visit Reason Comments Cough Encounter Details Date Type Department Care Team Description 03/01/2021 Nurse Triage Department of Internal Kayli Cohn , Cough Medicine in [facility] [address] [facility] [[email or web address]] [address] [place] [phone] [phone] Social History Tobacco Use Types Packs/Day Years [...] have completed or the highest Martin, MEd, INFORMATION SYSTEMS SECURITY DEVELOPER, CAYDEN) degree you have received? Sex Assigned at Date Recorded Male 05/21/2018 2:34 PM CDT documented as of this encounter Miscellaneous Notes Telephone Encounter - Kayli Cohn R.N. - 03/01/2021 8:32 PM CDT Chief Complaint / Reason for Call Patient is a 75 y.o. male calling regarding Cough. Assessment Concern: Cough with fever, sputum yellow. 100.3 temp, was recently hospitalized for CHF Present for: 2 days Home cares tried: None Calling to request: advice The recommended disposition is See a health care provider within 4 hours. Care Advice Patient/Caregiver understands and will follow care advice?: Yes, able to teach back SEE PCP WITHIN 4 HOURS (OR PCP TRIAGE): * IF OFFICE WILL BE OPEN: You need to be seen within the next 3 or 4 hours. Call your doctor (or PANEL WIRER/PA) now or as soon as the office opens. * IF OFFICE WILL BE CLOSED AND NO PCP (PRIMARY CARE PROVIDER) SECOND-LEVEL TRIAGE: You need to be seen within the next 3 or 4 hours. A nearby Urgent Care Center (UCC) is often a good source of care. Another choice is to go to the ED. Go sooner if you become worse. * IF OFFICE WILL BE CLOSED AND PCP SECOND-LEVEL TRIAGE REQUIRED: You may need to be seen. Your doctor (or PANEL WIRER/PA) will want to talk with you to decide what's best. I'll page the on-call provider now. Ifyou haven't heard from the provider (or me) within 30 minutes, call again. NOTE: If on-call providercan't be reached, send to UCC or ED. CALL BACK IF: * You become worse. . Reason for Disposition ? ? [1] Fever > 100.0 F (37.8 C) AND [2] bedridden (e.g., prison patient, CVA, chronic illness, recovering from surgery) Protocols used: COUGH - ACUTE [id number] documented in this encounter Plan of Treatment Not on filedocumented as of this encounter Visit Diagnoses Not on filedocumented in this encounter Additional Health Concerns Assessment Noted Time PHQ-9 Depression Total Score: 18 04/28/2018 11:27 AM C DT documented as of this encounter Care Teams Quantitative Software Engineer Relationship Specialty Start Date End Date Shayla Alford D.O. PCP - General Internal Medicine 05/22/20 [address] [place] [phone] documented as of this encounter
--- OUTSIDE RECORDS SUMMARY | 2022-05-21 11:21 | XMS_ITS | Encounter Summary ---
:1945 Author Organization [facility] Address [address] [place] [address] Care Team Providers Name Role Phone Shayla Alford D.O. Primary Care Provider [phone] Encounter Details Date Type Department Care Team Description 02/13/2021 Hospital Encounter Department of Charmaine Alford Pleural Radiology [place], D. OMauro [place] [address] [place] [phone] Social History Tobacco Use [...] do you attend yazidi or Never 2021 congregational services? Do you [...] have completed or the highest Martin, MEd, FORMING DEPARTMENT SUPERVISOR, [place]) degree you have received? Sex [...] Take 1 tablet (100 90 tablet 3 05 /12/2020 LEVOTHROID) 100 mcg mcg total) by mouth [...] by mouth tabletIndications: daily. 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 tablet metFORMIN (GLUMETZA) Take 1 tablet by 0 9 11/07/2021 1,000 mg 24 hr tablet mouth daily. metoprolol succinate Take 1 tablet (25 mg 30 tablet 11 02/1302/15/2021 (TOPROL-XL) 25 mg 24 hr total) by [...] Encounter Note - Shayla Alford D.O. - 02/13/2021 4:51 PM CDT Please, call patient following information. Great news, your lung fluid has improved. There might not be enough fluid for them to remove. Which is great. You can still see a lung specialist. But, we would likely do need to do a procedure at thispoint. Electronically signed by: Shayla Alford D.O. 02/13/21 4:50 PM CDT documented in this encounter Plan of Treatment Not on filedocumented as of this encounter Procedures Procedure Name Priority Date/Time Associated Comments Diagnosis DX CHEST AP OR PA RAD - Routine 02/13/2021 9:40 Effusion Pleural Re sults for this AND LATERAL 2 (most inpatients AM CDT procedure are in VIEWS and all the results outpatients) section. documented in this encounter Results DX Chest AP or PA and Lateral 2 Views (02/13/2021 9:40 AM CDT) Anatomical Region Laterality Modality Chest, Thoracic RST LOS, Thoracic ARZ LOS, Thoracic N/A Digital Radiography FLA LOS Specimen (Source) Anatomical Collection Method Collection Time Re ceived Time Location / / Volume Laterality 02/13/2021 9:42 AM CDT Impressions 02/13/2021 9:44 AM CDT Improved pulmonary edema and small bilateral pleural effusions. Mild persistent right basilar opacity likely reflecting atelectasis and/or scarring. Left basilar opacities are resolved. Narrative 02/13/2021 9:44 AM CDT EXAM: DX CHEST AP OR PA AND LATERAL 2 VIEWS COMPARISON: 12/18/2020 FINDINGS: Stable mildly enlarged cardiac silhouette. Aortic calcifications. Elevated right hemidiaphragm. Small bila teral pleural effusions. Right basilar opacity. Spondylosis. No acute or suspic ious bone or soft tissue finding. Procedure Note Russel Grayson M.D. - 02/13/2021Formattin g of this note might be different from the original. EXAM: DX CHEST AP OR PA AND LATERAL 2 EWS COMPARISON: 12/18/2020 FINDINGS: Stable mildly enlarged cardiac silhouette. Aortic calcifications. Elevated right hemidiaphragm. Small bila teral pleural effusions. Right basilar opacity. Spondylosis. No acute or suspic ious bone or soft tissue finding. IMPRESSION: Improved pulmonary edema and small bilat eral pleural effusions. Mild persistent right basilar opacity likely reflecting atelectasis and/or scarring. Left basilar opacities are resolved. Shayla Alford D.O. IMDanielle DIAGNOSTIC IMAGING PROC EDURES documented in this encounter Visit Diagnoses Diagnosis Effusion Pleural documented in this encounter Additional Health Concerns Assessment Noted Time PHQ-9 Depression Total Score: 18 04/28/2018 11:27 AM C DT documented as of this encounter Care Teams Pack Mule Worker Relationship Specialty Start Date End Date Shayla Alford D.O. PCP - General Internal Medicine 05/22/[address] [phone] documented as of this encounter
--- OUTSIDE RECORDS SUMMARY | 2022-05-21 11:21 | XMS_ITS | Encounter Summary ---
:1945 Author Organization [facility] Address [address] [place] [address] Care Team Providers Name Role Phone Shayla Alford D.O. Primary Care Provider [phone] Encounter Details Date Type Department Care Team Description 03/01/2021 Hospital Encounter Department of Manuel Evans Systolic Laboratory Medicine Pato Barber (Congestive) Heart in [place], [facility] [address] [facility] Failure (HCC) [place], [place] [address] [address] [place], [place] [phone] [phone] (Work) [phone] Social History Tobacco Use Types Packs/Day Years [...] do you attend yazidism or Never 2021 jewish services? Do you [...] completed or the highest Martin, MEd, CUSTOMER SUPPORT EXECUTIVE, [place]) degree you have received? Sex Assigned [...] SYRINGE-NEEDLE,INSULIN,0 0 .5 ML (INSULIN SYRINGE MISC) budesonide-formoteroL Inhale 2 puffs daily 0 10/201911/19/2021 [...] Take 2 tablets (50 180 tablet 3 2 021 03/14/2021 (TOPROL-XL) 25 mg 24 hr [...] Procedure Name Priority Date/Time Associated Comments Diagnosis NT-PRO B-TYPE Routine 03/01/2021 12:20 Chronic Systolic Result s for this NATRIURETIC PEPTIDE PM CDT (Congestive) Heart pr ocedure are in (BNP), S Failure (HCC) the results section. BUN (BLOOD UREA Routine 03/01/2021 12:20 Chronic Systolic Resu lts for this NITROGEN), S/P PM CDT (Congestive) Heart procedu re are in Failure (HCC) the results section. SODIUM, S/P Routine 03/01/2021 12:20 Chronic Systolic Results for this PM CDT (Congestive) Heart procedure are in Failure (HCC) the results section. POTASSIUM, S/P Routine 03/01/2021 12:20 Chronic Systolic Resul ts for this PM CDT (Congestive) Heart procedure are in Failure (HCC) the results section. CREATININE WITH EGFR, Routine 03/01/2021 12:20 Chronic Systoli c Results for this S/P PM CDT (Congestive) Heart procedure are in Failure (HCC) the results section. documented in this encounter Results (ABNORMAL) NT-Pro B-Type Natriuretic [...] Biotin has been identified by the capri delgador as a potential interfering substance. ??Higher concentr ations of biotin may be found in multivitamins, hair/nail supple ments, and workout supplements. ??If the result does not [facility] clinical observations, repeat testing after patient refrains fr om the use of supplements for at least 12 hours. Specimen Anatomical Collection Method Collection Time Receive d Time (Source) Location / / Volume Laterality Blood (Blood, 03/01/2021 12:20 03/01/2021 Venous) PM CDT 12:25 PM CDT Manuel Evans M.D. LAB BLOOD ADD-ON Performing Organization Address City/State/ZIP Code Phon e Number [facility]- [address] [place] [address] [facility] [place] [address] System in [place] [address] Sodium (03/01/2021 12:20 PM CDT) P athologist Signature Sodium, P 137 135 - 145 03/01/2021 [facility] mmol/L 12:59 PM CDT Specimen Anatomical Collection Method Collection Time Receive d Time (Source) Location / / Volume Laterality Blood (Blood, 03/01/2021 12:20 03/01/2021 Venous) PM CDT 12:25 PM CDT Manuel Evans M.D. LAB BLOOD ADD-ON Performing Organization Address City/State/ZIP Code Phon e Number [facility]- [address] [place] [address] [facility] [place] [address] System in [place] [address] Potassium (03/01/2021 12:20 PM CDT) P athologist Signature Potassium, P 3.8 3.6 - 5.2 03/01/2021 [facility] mmol/L 12:59 PM CDT Specimen Anatomical Collection Method Collection Time Receive d Time (Source) Location / / Volume Laterality Blood (Blood, 03/01/2021 12:20 03/01/2021 Venous) PM CDT 12:25 PM CDT Manuel Evans M.D. LAB BLOOD ADD-ON Performing Organization Address City/State/ZIP Code Phon e Number [facility]- [address] [place] [address] [facility] [place] [address] System in [place] [address] (ABNORMAL) Creatinine with Estimated GFR (03/01/2021 12:20 PM CDT) Analysis Performed At Patho logist Time Signature Creatinine 1.56 (H) 0.74 - 03/01/2021 [facility] 1.35 mg/dL 12:59 PM CDT eGFR-Black/Afri 49 (L) >=60 03/01/2021 [facility] can [place] mL/min/BSA 12:59 PM CDT Comment: ----ADDITIONAL INFORMATION---- Estimated GFR calculated using the 2009 CKD_EPI creatinine equation. eGFR Non-Black/ 42 (L) >=60 mL/min/BSA 03/01/2021 12:59 PM CDT [facility] [place] Comment: ----ADDITIONAL INFORMATION---- Estimated GFR calculated using the 2009 CKD_EPI creatinine equation. Specimen Anatomical Collection Method Collection Time Receive d Time (Source) Location / / Volume Laterality Blood (Blood, 03/01/2021 12:20 03/01/2021 Venous) PM CDT 12:25 PM CDT Manuel Evans M.D. LAB BLOOD ADD-ON Performing Organization Address City/State/ZIP Code Phon e Number [facility]- [address] [place] [address] [place] [address] System in [place] [address] (ABNORMAL) BUN (Blood Urea Nitrogen) (03/01/2021 12:20 PM CDT) P athologist Signature BUN (Blood Urea 42 (H) 8 - 24 03/01/2021 [facility] Nitrogen), P mg/dL 12:59 PM CDT Specimen Anatomical Collection Method Collection Time Receive d Time (Source) Location / / Volume Laterality Blood (Blood, 03/01/2021 12:20 03/01/2021 Venous) PM CDT 12:25 PM CDT Manuel Evans M.D. LAB BLOOD ADD-ON Performing Organization Address City/State/ZIP Code Phon e Number [facility]- [address] [place] [address] [place] [address] System in [place] [address] [facility] documented in this encounter Visit Diagnoses Diagnosis Chronic Systolic (Congestive) Heart Fail ure (HCC) documented in this encounter Additional Health Concerns Assessment Noted Time PHQ-9 Depression Total Score: 18 04/28/2018 11:27 AM C DT documented as of this encounter Care Teams Director Paid Media Relationship Specialty Start Date End Date Shayla Alford D.O. PCP - General Internal Medicine 05/22/[address] [phone] documented as of this encounter
--- OUTSIDE RECORDS SUMMARY | 2022-05-21 11:21 | XMS_ITS | Encounter Summary ---
:1945 Author Organization [facility] Address [address] [place] [address] Care Team Providers Name Role Phone Shayla Alford D.O. Primary Care Provider [phone] Encounter Details Date Type Department Care Team Description 02/21/2021 Clinical [facility] and [address] [place] [address] Clinical [facility] in [place], [place] [address] [place] [address] [place] [address] (Work) [phone] Social History Tobacco Use Types Packs/Day Years [...] do you attend scientology or Never 2021 buddhism services? Do you belong to any clubs [...] have completed or the highest Martin, MEd, LPN CMA, [place]) degree you have received? Sex Assigned at Date Recorded Male 05/21/2018 2:34 PM CDT documented as of this encounter Plan of Treatment Not on filedocumented as of this encounter Visit Diagnoses Not on filedocumented in this encounter Additional Health Concerns Assessment Noted Time PHQ-9 Depression Total Score: 18 04/28/2018 11:27 AM C DT documented as of this encounter Care Teams Drop Count Associate Relationship Specialty Start Date End Date Shayla Alford D.O. PCP - General Internal Medicine 05/22/20 [address] [place] [phone] documented as of this encounter
--- OUTSIDE RECORDS SUMMARY | 2022-05-21 11:21 | XMS_ITS | Encounter Summary ---
:1945 Author Organization [facility] Address [address] [place] [address] Care Team Providers Name Role Phone Shayla Alford D.O. Primary Care Provider Encounter Details Date Type Department Care Team Description 02/15/2021 Clinical Communication Department of Internal Andrei Dejesus Medicine in [place], [place], [place].O [place] [address] [place] [phone] Social History Tobacco Use Types Packs/Day Years [...] or relatives? How often do you attend moravian or Never 2021 jain services? Do you belong to any clubs or No 10/09/2021 organizations such as moravian groups, unions, fraternal or athletic groups, or [...] have completed or the highest Martin, MEd, PATTERN FILER, CAY[place]) degree you have received? Sex Assigned at Date Recorded Male 05/21/2018 2:34 PM CDT documented as of this encounter Miscellaneous Notes Telephone Encounter - Gabriela Vargas C.MMauroAMauro - 02/19/2021 2:13 PM CDT Office notes of [facility]. Telephone Encounter - Gabriela Vargas C.MJaime - 02/19/2021 10:16 AM CDT Awaiting 02/13/21 visit notes to be signed, then will [facility] Telephone Encounter - Shayla Alford D.O. - 02/16/2021 3:17 PM CDT Rx has been signed Electronically signed by: Shayla Alford D.O. 02/16/21 3:18 PM CDT Telephone Encounter - Jacquie Hamilton, L.P.N. - 02/16/2021 1:54 PM CDT SUBJECTIVE CHIEF COMPLAINT / REASON FOR CALL No chief complaint on file. Information Discussed Per patient modified prescription is for metoprolol 25 mg. [facility] Disposition/Recommendation: notified provider and awaiting recommendations Information/Education: patient/caller able to teach back Caller agreeable to plan of care: yes The following references were used: provider dr reid Telephone Encounter - Ai Tellez L.P.N. - 02/15/2021 3:23 PM CDT Left message to call back. Please clarify modified prescription. [facility] Telephone Encounter - Sandra Wei - 02/15/2021 12:36 PM CDT Reason for Communication: Patient is calling in he stated he wants Dr. Reid to [facility] a [facility] to the [facility] the Metoprolol Succinate 25 mg. The patient also stated the [facility] provider had ordered 50 mg. Please call the patient back. Current Can Nursing/Provider leave a detailed message?: yes Did the patient refuse triage through Nurse line? (for symptom based concerns): n/a Action Needed: Please call patient back. Name of Medication (if relevant): n/a documented in this encounter Plan of Treatment Not on filedocumented as of this encounter Visit Diagnoses Diagnosis Hypertension Essential Primary documented in this encounter Additional Health Concerns Assessment Noted Time PHQ-9 Depression Total Score: 18 04/28/2018 11:27 AM C DT documented as of this encounter Care Teams Production Hand Relationship Specialty Start Date End Date Shayla Alford D.O. PCP - General Internal Medicine 05/22/[address] [phone] documented as of this encounter
--- OUTSIDE RECORDS SUMMARY | 2022-05-21 11:21 | XMS_ITS | Encounter Summary ---
:1945 Author Organization [facility] Address [address] [place] [address] Care Team Providers Name Role Phone Shayla Alford D.O. 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 Do you [...] have completed or the highest Martin, MEd, SKIMMER SCOOP OPERATOR, [place]) degree you have received? Sex [...] daily. budesonide-formoteroL Inhale 2 puffs daily 0 10/10/201911/19/2021 [...] by mouth tabletIndications: daily. 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), Diabetes Mellitus Type 2 ([facility]), Hypertension Essential Primary lisinopriL Take 1 tablet [...] Diagnosis Comme nts HEMOGLOBIN A1C, B Routine 02/13/2021 10:00 Diabetes Mellitus T ype Results for this AM CDT 2 With Diabetic procedure ar e in Chronic Kidney Disease the r esults Hyperglycemic (H CC) section. Chronic Kidney Disease (CKD), Stage 3b Glomerular Filtration Rate (GFR) 30 To 44 (HCC) Anemia In Chronic Kidney Disease BASIC METABOLIC Routine 02/13/2021 10:00 Diabetes Mellitus Typ e Results for this PANEL, S/P AM CDT 2 With Diabetic procedure ar e in Chronic Kidney Disease the r esPlastyc Hyperglycemic (H CC) section. Chronic Kidney Disease (CKD), Stage 3b Glomerular Filtration Rate (GFR) 30 To 44 (HCC) Anemia In Chronic Kidney Disease documented in this encounter Results (ABNORMAL) Basic Metabolic Panel (02/13/2021 10:00 AM CDT) Analysis Performed At Patho logist Time Signature Potassium, P 4.0 3.6 - 5.2 02/13/2021 [facility] mmol/L 10:42 AM CDT Sodium, P 142 135 - 145 02/13/2021 [facility] mmol/L 10:42 AM CDT Chloride, P 105 98 - 107 02/13/2021 [facility] mmol/L 10:42 AM CDT Bicarbonate, P 26 22 - 29 02/13/2021 [facility] mmol/L 10:43 AM CDT Anion Gap, P 11 7 - 15 02/13/2021 [facility] 10:42 AM CDT BUN (Blood Urea 50 (H) 8 - 24 02/13/2021 [facility] Nitrogen), P mg/dL 10:43 AM CDT Creatinine 1.94 (H) 0.74 - 02/13/2021 [facility] 1.35 mg/dL 10:43 AM CDT eGFR-Black/Afri 37 (L) >=60 02/13/2021 [facility] can [place] mL/min/BSA 10:43 AM CDT Comment: ----ADDITIONAL INFORMATION---- Estimated GFR calculated using the 2009 CKD_EPI creatinine equation. eGFR Non-Black/ 32 (L) >=60 mL/min/BSA 02/13/2021 10:43 AM CDT [facility] [place] Comment: ----ADDITIONAL INFORMATION---- Estimated GFR calculated using the 2009 CKD_EPI creatinine equation. Calcium, Total, P 8.8 8.8 - 10.2 mg/dL 02/13/2021 10:4 3 AM CDT [facility] Glucose, P 82 70 - 140 mg/dL 02/13/2021 10:43 AM CDT [facility] Specimen Anatomical Collection Method Collection Time Receive d Time (Source) Location / / Volume Laterality Blood (Blood, 02/13/2021 10:00 02/13/2021 Venous) AM CDT 10:03 AM CDT Shayla Alford D.O. LAB BLOOD ADD-ON Performing Organization Address City/State/ZIP Code Phon e Number [facility]- [address] [place] [address] [facility] [place] [address] System in [place] [address] (ABNORMAL) Hemoglobin A1c (02/13/2021 10:00 AM CDT) P athologist Signature Hemoglobin A1c, 7.9 (H) 4.2 - 5.6 02/13/2021 [facility] B % 10:26 AM CDT Comment: Hemoglobin A1c values greater than or eq ual to 6.5 percent are diagnostic for diabetes mellitus. ?? Diagnosis should be confirmed by repeat testing. ??In diabet ic patients, HbA1c goals should be discussed with healthcar e provider. Specimen Anatomical Collection Method Collection Time Receive d Time (Source) Location / / Volume Laterality Blood (Blood, 02/13/2021 10:00 02/13/2021 Venous) AM CDT 10:03 AM CDT Shayla Alford D.O. LAB BLOOD ADD-ON Performing Organization Address City/State/ZIP Code Phon e Number [facility]- [address] [place] [address] [facility] [place] [address] System in [place] [address] documented in this encounter Visit Diagnoses Diagnosis Diabetes Mellitus Type 2 With Diabetic C hronic Kidney Disease Hyperglycemic (HCC) Chronic Kidney Disease (CKD), Stage 3b G lomerular Filtration Rate (GFR) 30 To 44 (HCC) Anemia In Chronic Kidney Disease documented in this encounter Additional Health Concerns Assessment Noted Time PHQ-9 Depression Total Score: 18 04/28/2018 11:27 AM C DT documented as of this encounter Care Teams Central Office Equipment Engineer Relationship Specialty Start Date End Date Shayla Alford D.O. PCP - General Internal Medicine 05/22/202199 [place] [phone] documented as of this encounter
--- OUTSIDE RECORDS SUMMARY | 2022-05-21 11:22 | XMS_ITS | Encounter Summary ---
:1945 Author Organization [facility] Address [address] [place] [address] Care Team Providers Name Role Phone Shayla Alford D.O. Primary Care Provider [phone] Reason for Visit Reason Comments Pancreas Results Encounter Details Date Type Department Care Team Description 01/31/2021 Clinical Division of [facility] Pancreas (Resul ts) Communication Gastroenterology in [place], [place] M.D. [address] [facility] [address] [place] [address] [place] [address] Social History Tobacco Use Types Packs/Day Years [...] do you attend episcopal or Never 2021 evangelical services? Do you [...] have completed or the highest Martin, MEd, WEIGHT CALCULATOR, [place]) degree you have received? Sex Assigned at Date Recorded Male 05/21/2018 2:34 PM CDT documented as of this encounter Miscellaneous Notes Telephone Encounter - Emili Lucas R.N. - 02/05/2021 12:13 PM CDT SUBJECTIVE CHIEF COMPLAINT / REASON FOR CALL Pancreas (Results) PLAN The following information was provided: Spoke with the patient to give Dr. Zurita's recommendations: he can try taking MiraLAX daily for 2 weeks and if symptoms persist we should consider a colonoscopy. Given his symptoms of shortness of breath and pleural effusion he will need to be cleared by his PCP that he is fit for anesthesia for the colonoscopy. OK to hold Creon for now. The patient reports for now he would like to continue withprune juice instead of a medication. If it does not improve he will contact his PCP or us to consider a colonoscopy. He will continue to hold the Creon and he will contact us if diarrhea returns. Currently, patient will continue follow up with PCP for pleural effusion. Information/Education: patient/caller able to teach back The following references were used: nursing clinical judgement and provider Dr. Zurita Telephone Encounter - Emili Lucas R.N. - 01/31/2021 11:12 AM CDT SUBJECTIVE CHIEF COMPLAINT / REASON FOR CALL Pancreas (Results) Test Result Information: Resulted Orders MR Abdomen MRCP without IV Contrast Narrative EXAM: MR ABDOMEN MRCP WITHOUT IV CONTRAST 3D maximum intensity projections/volume renderings were created on an independent workstation as ordered by the treating provider and reviewed by the radiologist for biliary and pancreatic duct visualization. COMPARISON: CT abdomen/pelvis 10/11/2020. FINDINGS: Again seen are findings of chronic pancreatitis, with diffuse pancreatic atrophy, pancreatic ductal dilatation, and extensive prominent sidebranches throughout the pancreas. The pancreatic duct measures up to approximately 8 mm, unchanged since 10/11/2019. Redemonstration of the large filling defect within the duct in the pancreatic head with extension into a few side branches (series 14, image 50), which was shown to be represent a large stone on the comparison CT and is overall similar in size measuring up to approximately 20 mm. Additional parenchymal calcifications are not as well appreciated on today's exam. No definite evidence of a mass, though evaluation is limited without IV contrast. No biliary ductal dilatation. Normal gallbladder. Bilateral renal cysts, including multiple hemorrhagic cysts, greatest in the right kidney. Normal noncontrast appearance of the liver, spleen, and adrenal glands. A few mildly prominent lymph nodes are likely reactive. Small periapical hernias which contain nonobstructed bowel (series 4, image 50). Large right and moderate left pleural effusions. Remainder negative. Impression 1. Redemonstration of findings of chronic pancreatitis, with a large presumed intraductal stone within the pancreatic head. Overall findings are similar as on the 10/11/2019 CT. 2. No definite pancreatic mass identified, though evaluation is limited without IV contrast. 3. Large right and moderate left pleural effusions. Called patient to discuss MRI findings and Dr. Zurita's recommendations. Patient verbalized understanding and will continue to work with his local provider and pulmonology. The patient would also like to update Dr. Zurita, he had been struggling with constipation issues and about 3-4 months ago, discontinued his Creon. He has not had any problems with diarrhea. He reports he still needs to drink prune juice every other day to keep his bowel movements regular. Disposition/Recommendation: self-care is appropriate at this time, patient encouraged to call back with questions Information/Education: patient/caller able to teach back Caller agreeable to plan of care: yes Telephone Encounter - Emili Lucas R.N. - 01/31/2021 9:35 AM CDT ----- Message from Emil Zurita M.D. sent at 01/30/2021 5:16 PM CDT ----- MRI reviewed. Stable changes of chronic pancreatitis noted. Incidental note of bilateral pleural effusion. He was evaluated by his PCP for this and I agree with a pulmonology consultation, he has been seen here in the past by Dr. Sims and may need a thoracentesis and pleural fluid analysis to identify the cause. Attempted calling him and left a voicemail. Please communicate results and recommendations to him and let me know if any questions. documented in this encounter Plan of Treatment Not on filedocumented as of this encounter Visit Diagnoses Not on filedocumented in this encounter Additional Health Concerns Assessment Noted Time PHQ-9 Depression Total Score: 18 04/28/2018 11:27 AM C DT documented as of this encounter Care Teams Design Tech Relationship Specialty Start Date End Date Shayla Alford D.O. PCP - General Internal Medicine 05/22/[address] [address] documented as of this encounter
--- OUTSIDE RECORDS SUMMARY | 2022-05-21 11:22 | XMS_ITS | Encounter Summary ---
:1945 Author Organization [facility] Address [address] [place] [address] Care Team Providers Name Role Phone Shayla Alford D.O. Primary Care Provider [phone] Reason for Visit Reason Comments Shortness of Breath Encounter Details Date Type Department Care Team Description 01/30/2021 Nurse Triage Department of Internal Elisa Woody Sho rtness of Breath Medicine in [facility] [address] [place] [address] [address] [place] [phone] Social History Tobacco Use Types Packs/Day Years [...] or relatives? How often do you attend baptist or Never 2021 islam services? Do you belong to any clubs or No 10/09/2021 organizations such as baptist groups, unions, fraternal or athletic groups, or [...] have completed or the highest Martin, MEd, LOGISTICS MANAGEMENT SPECIALIST, [place]) degree you have received? Sex Assigned at Date Recorded Male 05/21/2018 2:34 PM CDT documented as of this encounter Miscellaneous Notes Telephone Encounter - Elisa Woody R.N. - 01/30/2021 8:59 AM CDT Chief Complaint / Reason for Call Patient is a 75 y.o. male calling regarding Shortness of Breath. Assessment Concern: Patient states that he is experiencing increasing shortness of breath for about a month. Hehas a history of asthma and CHF. He was seen in the ER on 12/18 for increased shortness of breath dueto CHF and he also had bilateral pleural effusion. ER recommended increasing his Torsemide and f/u with PCP. He was seen in follow up and has been taking his usual dose now of Torsemide 40 mg. He does weigh himself daily and notes about a 8# weight gain over the last month. He also has new mild edema in both lower extremities. He notices some episodes of asthma exacerbation related to triggers such as monique and some cleaning products. He is finding that he is needing to use his inhalers more frequently lately. Present for: 1 month Home cares tried: Torsemide and inhalers as directed Calling to request: Appointment The recommended disposition is See a health care provider within 4 hours. Caller/Patient was warm transferred to the clinic for further assistance. Reason for Disposition ??? [1] Longstanding difficulty breathing (e.g., CHF, COPD, emphysema) AND [2] WORSE than normal Protocols used: BREATHING [id number] COVID-19 Nurse Line Screening ASSESSMENT Region Select appropriate region: : [place] Age Pathway Select approprite pathway: : Adult Have you had close contact* with a person who has a LABORATORY CONFIRMED case of COVID-19 in the past 14 days?: No (Continue Screening) In the last 48 hours, have you had a fever* OR symptoms that are unrelated to a preexisting illness?: No symptoms noted (Continue Screening) Have you tested positive for COVID-19 in the last 90 days?: No (Continue Screening) Have you been advised to undergo testing or are you requesting testing?: No, testing not recommended(End Screening) Testing Recommendation Endpoint Is testing recommended? : Not recommended to test PLAN Endpoint recommendation: Screening negative, testing not indicated at this time Care Points: -Wash hands frequently with soap and water for at least 20 seconds -If soap and water are not available, use a hand rn enterostomal -Avoid touching your eyes, nose and mouth. -Clean and disinfect high-touch surfaces routinely. -Wear a mask over your nose and mouth. A cloth face cover is not a substitute for social distancing -Continue to keep about 6 feet between yourself and others. -Avoid public areas and public transportation. -Find new ways to connect with family and friends, get support and share feelings. -Seek emergent care if any of the following occur Trouble breathing Bluish lips or face Persistent pain or pressure in the chest New confusion or inability to rouse. -Notify your regular care provider of any new or worsening symptoms. documented in this encounter Plan of Treatment Not on filedocumented as of this encounter Visit Diagnoses Not on filedocumented in this encounter Additional Health Concerns Assessment Noted Time PHQ-9 Depression Total Score: 18 04/28/2018 11:27 AM C DT documented as of this encounter Care Teams Pocket Cutter Relationship Specialty Start Date End Date Shayla Alford D.O. PCP - General Internal Medicine 05/22/[address] [phone] documented as of this encounter
--- OUTSIDE RECORDS SUMMARY | 2022-05-21 11:22 | XMS_ITS | Encounter Summary ---
:1945 Author Organization [facility] Address [address] [place] [address] Care Team Providers Name Role Phone Shayla Alford D.O. Primary Care Provider [phone] Encounter Details Date Type Department Care Team Description 12/22/2020 Hospital Encounter Department of [facility] Acute O n Chronic Systolic (Congestive) Heart Failure (HCC); Laboratory Medicine [place] Chronic Kidney Disease (CKD), Stage 3 Un specified (HCC) in [address], [place] [phone] Social History Tobacco Use Types Packs/Day [...] do you attend catholic or Never 2021 sikh services? Do you belong to any clubs [...] have completed or the highest Martin, MEd, GRAFFITI CLEANER, CAYDEN) degree you have received? Sex Assigned [...] 04/28/2018 mg tablet total) by mouth daily. PEN NEEDLE, DIABETIC MISC Yani Fine 30 0 disposable needles. For use with Insulin Pens, 4 times daily SYRINGE-NEEDLE,INSULIN,0. 0 5 ML (INSULIN SYRINGE MISC) amiodarone (PACERONE) 200 Take 200 mg by mouth 0 02/22/2021 mg tablet daily. budesonide-formoteroL Inhale 2 puffs daily 0 10/10/201911/19/2021 (SYMBICORT) 160-4.5 as needed. mcg/actuation inhaler dulaglutide (Trulicity) Inject 0.5 mL (0.75 2 pen 0 09/202002/06/2021 0.75 mg/0.5 mL mg total) under the injectionIndications: skin every 7 (seven) Diabetes Mellitus Type 2 days. Hyperglycemia (HCC) gemfibroziL (LOPID) 600 Take 1 [...] by mouth tabletIndications: daily. 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 Hypothyroidism lisinopriL Take 1 tablet by 0 11/15/2008 11/06/19 22 (PRINIVIL,ZESTRIL) 10 mg mouth daily. tablet metFORMIN (GLUMETZA) Take 1 tablet by 0 9 11/07/2021 1,000 mg 24 hr tablet mouth daily. metoprolol succinate Take 1 tablet (50 mg 90 tablet 3 05/0102/13/2021 (TOPROL-XL) 50 mg 24 hr total) by mouth tablet daily. Do not crush or chew. torsemide (DEMADEX) 20 mg Take 2 tablets [...] Name Priority Date/Time Associated Diagnosis Comme nts BASIC METABOLIC Routine 12/22/2020 1:28 PM Acute On Chronic Re sults for this PANEL, S/P CDT Systolic procedure are i n (Congestive) Heart the resul ts Failure (HCC) section. Chronic Kidney Disease (CKD), Stage 3 Unspecified (HCC) documented in this encounter Results (ABNORMAL) Basic Metabolic Panel (12/22/2020 1:28 PM CDT) Analysis Performed At Patho logist Time Signature Potassium, P 4.5 3.6 - 5.2 12/22/2020 [facility] mmol/L 2:00 PM CDT Sodium, P 139 135 - 145 12/22/2020 [place] mmol/L 2:00 PM CDT Chloride, P 101 98 - 107 12/22/2020 [facility] mmol/L 2:00 PM CDT Bicarbonate, P 25 22 - 29 12/22/2020 [facility] mmol/L 2:00 PM CDT Anion Gap, P 13 7 - 15 12/22/2020 [facility] 2:00 PM CDT BUN (Blood Urea 44 (H) 8 - 24 12/22/2020 [facility] Nitrogen), P mg/dL 2:00 PM CDT Creatinine 1.81 (H) 0.74 - 12/22/2020 [facility] 1.35 mg/dL 2:00 PM CDT eGFR-Black/Afri 41 (L) >=60 12/22/2020 [facility] can Citizen [place] mL/min/BSA 2:00 PM CDT Comment: ----ADDITIONAL INFORMATION---- Estimated GFR calculated using the 2009 CKD_EPI creatinine equation. eGFR Non-Black/ 35 (L) >=60 mL/min/BSA 12/22/2020 2:00 PM CDT [facility] [place] Comment: ----ADDITIONAL INFORMATION---- Estimated GFR calculated using the 2009 CKD_EPI creatinine equation. Calcium, Total, P 8.8 8.8 - 10.2 mg/dL 12/22/2020 2:00 PM CDT [facility] Glucose, P 383 (H) 70 - 140 mg/dL 12/22/2020 2:00 PM CDT [facility] Specimen Anatomical Collection Method Collection Time Receive d Time (Source) Location / / Volume Laterality Blood (Blood, 12/22/2020 1:28 PM 12/23/19 21 1:34 Venous) CDT PM CDT [facility] M.D. LAB BLOOD ADD-ON Performing Organization Address City/State/ZIP Code Phon e Number [facility] [address] [place] [address] [place] [address] System in [place] [address] [facility] documented in this encounter Visit Diagnoses Diagnosis Acute On Chronic Systolic (Congestive) H eart Failure (HCC) Chronic Kidney Disease (CKD), Stage 3 Un specified (HCC) documented in this encounter Additional Health Concerns Assessment Noted Time PHQ-9 Depression Total Score: 18 04/28/2018 11:27 AM C DT documented as of this encounter Care Teams Chair Pad Maker Relationship Specialty Start Date End Date Shayla Alford D.O. PCP - General Internal Medicine 05/22/[address] [place] [address] documented as of this encounter
--- OUTSIDE RECORDS SUMMARY | 2022-05-21 11:22 | XMS_ITS | Encounter Summary ---
:1945 Author Organization [facility] Address [address] [place] [address] Care Team Providers Name Role Phone Shayla Alford D.O. Primary Care Provider Encounter Details Date Type Department Care Team Description 02/06/2021 Clinical Communication Department of [facility] Kaushik Wong Medicine, [place] [facility], [address] [address] [place], [place] [phone] (Work) [phone] Social History Tobacco Use Types Packs/Day Years [...] do you attend synagogue or Never 2021 methodist services? Do you belong to any clubs [...] level of school Master's degree (e.g., M [employer], MS, 03/23/2019 you have completed or the highest Martin, MEd, DAIRY MANAGEMENT SPECIALIST, [place]) degree you have received? Sex Assigned at Date Recorded Male 05/21/2018 2:34 PM CDT documented as of this encounter Miscellaneous Notes Telephone Encounter - Margaret Herndon L.PMauroNMauro - 02/09/2021 8:46 AM CDT Letter sent Telephone Encounter - Margaret Herndon L.P.N. - 02/09/2021 8:38 AM CDT Left message for patient to return call to clinic. ?? Does the patient need to speak to nursing? yes ?? Action needed: Please let patient know the following per Dr Wong ?? Creatinine is slightly elevated because of the use of the Lasix. ??As we discuss he needs to decrease the dose of the torsemide to 40 mg daily. Telephone Encounter - Margaret Herndon L.P.N. - 02/08/2021 8:22 AM CDT Left message for patient to return call to clinic. Does the patient need to speak to nursing? yes Action needed: Please let patient know the following per Dr Wong ?? Creatinine is slightly elevated because of the use of the Lasix. ??As we discuss he needs to decrease the dose of the torsemide to 40 mg daily. Telephone Encounter - Katerin Chance C.M.A. - 02/07/2021 3:49 PM CDT Left message for patient to return call to clinic. Does the patient need to speak to nursing? yes Action needed: please inform the patient of the following information from Dr. Wong ?? Creatinine is slightly elevated because of the use of the Lasix. ??As we discuss he needs to decrease the dose of the torsemide to 40 mg daily.? Telephone Encounter - Kayli Garcia L.P.N. - 02/07/2021 8:40 AM CDT Left message for patient to return call to clinic. Does the patient need to speak to nursing? yes Action needed: Relay information from Dr. Wong Creatinine is slightly elevated because of the use of the Lasix. ??As we discuss he needs to decrease the dose of the torsemide to 40 mg daily. ?? Telephone Encounter - Margaret Herndon L.PMauroNMauro - 02/06/2021 4:07 PM CDT Left message for patient to return call to clinic. Does the patient need to speak to nursing? yes Action needed: Please let patient know the following per Dr Wong Creatinine is slightly elevated because of the use of the Lasix. ??As we discuss he needs to decrease the dose of the torsemide to 40 mg daily. documented in this encounter Plan of Treatment Not on filedocumented as of this encounter Visit Diagnoses Not on filedocumented in this encounter Additional Health Concerns Assessment Noted Time PHQ-9 Depression Total Score: 18 04/28/2018 11:27 AM C DT documented as of this encounter Care Teams Film Crew Member Relationship Specialty Start Date End Date Shayla Alford D.O. PCP - General Internal Medicine 05/22/[address] [address] documented as of this encounter
--- OUTSIDE RECORDS SUMMARY | 2022-05-21 11:22 | XMS_ITS | Encounter Summary ---
:1945 Author Organization [facility] Address [address] [place] [address] Care Team Providers Name Role Phone Shayla Alford D.O. Primary Care Provider [phone] Reason for Referral Outpatient (Routine) - Closed Specialty Diagnoses / Procedures Referred By Contact Refer red To Contact Diagnoses Chronic Systolic (Congestive) Heart Failure (HCC) Beat Premature Ventricular Manuel Evans M.D. [facility] Procedures ECG Heart Rhythm Monitor (Holter) [address] [place] [address] Referral ID Status Reason Start Date Expiration Date Visits Requ ested Visits Authorized [id number] Closed 02/01/2021 02/01/2022 1 1 Outpatient (Routine) - Closed Specialty Diagnoses / Procedures Referred By Contact Refer anna To Contact Cardiovascular Disease Manuel Evans [facility] Felicita Whyte [address] [place] [address] Referral ID Status Reason Start Date Expiration Date Visits Requ ested Visits Authorized [id number] Closed 02/01/2021 02/01/2022 1 1 Reason for Visit Reason Comments Questioning amiodarone dose/wants 3-month appt Encounter Details Date Type Department Care Team Description 01/31/2021 Clinical Department of Shona Evans Cardiovascular Manuel Barber amiodarone Medicine in M.D. dose/wants 3-month [place], [place] 200 [facility] appt [address] [place] [phone] [phone] Social History Tobacco Use Types Packs/Day Years [...] or relatives? How often do you attend sabianist or Never 2021 confucianist services? Do you belong to any clubs or No 10/09/2021 organizations such as sabianist groups, unions, fraternal or athletic groups, or [...] have completed or the highest Martin, MEd, MAINTAINER [employer], [place]) degree you have received? Sex Assigned at Date Recorded Male 05/21/2018 2:34 PM CDT documented as of this encounter Miscellaneous Notes Telephone Encounter - Khushboo Crockett R.N. - 02/01/2021 10:43 AM CDT Sorry to confirm I did just speak with patient and he did reduce to 100 mg daily when you wanted himto around 11/28/20. He states he has been having some fluid issues with increasing fatigue and that someone has been adjusting his diuretics. Would like to setup appointment to see you back within the next month. Telephone Encounter - Manuel Evans M.D. - 02/01/2021 9:07 AM CDT Interesting yes reduce to 100mg and we can recheck in 3 months with holter and thyroid studies Telephone Encounter - Khushboo Crockett R.N. - 02/01/2021 7:47 AM CDT Per your note on 11/17/20: Consider discontinuation or reduction in amiodarone therapy. I will place another 24 hour Holter to see how much ectopy we are seen. I will plan to see him back in 3 months. I do see from your result note on the Holter Monitor though: I have reviewed the Holter and noted a dramatic and sustained reduction in ventricular ectopy. 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 I will try a reduced dose of amiodarone to 100 mg daily. ??Scripts sent. ??Follow up planed in 3 months. Does not appear script was sent for amiodarone 100 mg daily and patient is still taking 200 mg daily. Do you want him to decrease to 100 mg daily and when do you want follow up then? Telephone Encounter - Raquel Rodriguez - 01/31/2021 4:50 PM CDT SUBJECTIVE CHIEF COMPLAINT / REASON FOR CALL Questioning amiodarone dose/wants 3-month appt Name of caller/relationship to the patient: Diallo Costa-Spouse; authorization on file dated 05-21-18 Patient expects communication via portal: No Phone number: [phone] Request topic and what needs to be addressed? Medication Management ?? Goal or summary: Patient's is questioning amiodarone dose. ?? Medication/dose: Amiodarone 200 mg daily per 11-17-20 note ?? Recent change/new symptom/side effect: Mrs. Costa isn't sure if Mr. Costa should be taking 100 mg daily or 200 mg daily. ?? Pharmacy clarification: None. ?? Additional comments: Mr. Costa also had MR abdomen here on 01-19-21 so Mrs. Costa would like youto review the results. Appointment/Visit Type/Schedule Procedure ?? Goal or summary: In your 11-17-20 clinical note, you indicate you wish to see patient again in 3 months. ?? Dates interested in: They can come any time. ?? Additional comments: None. documented in this encounter Plan of Treatment Scheduled Referrals Name Type Priority Associated Order Schedule Diagnoses Cardiovascular Disease Outpatient Referral Routine Expected: office visit (clinic) 2020 (Approximate), Expires: 02/02/2024 documented as of this encounter Results HOLTER MONITOR - IN CLINIC DEICER KIT ASSEMBLER (02/21/2021 8:20 AM CDT) [facility] gist Method Time Signature Min Heart Rate 52 bpm HOLTER SENTINEL AF Count 0 count HOLTER SENTINEL SVE Max Per [id number] HOLTER Hour Time SENTINEL Tachycardia 0 count HOLTER Runs SENTINEL SVE Total 80 count HOLTER Beats SENTINEL Mean Heart 68 bpm HOLTER Rate SENTINEL SVT Runs 0 count HOLTER SENTINEL VT Runs 0 count HOLTER SENTINEL Bradycardia 0 count HOLTER Runs SENTINEL Min Heart Rate [id number] HOLTER Time SENTINEL Max Heart Rate [id number] HOLTER Time SENTINEL Max Heart Rate 93 bpm HOLTER SENTINEL SVE Max Per 11 count HOLTER Hour SENTINEL SVE Percent 0 percent HOLTER Beats SENTINEL Recording Date [id number] HOLTER SENTINEL VE Max Per [id number] HOLTER Hour Time SENTINEL Holter Pauses 0 [...] e Number HOLTER SENTINEL HOLTER SENTINEL NA (ABNORMAL) Thyroid Function [place] (02/20/2021 11:09 AM CDT) P athologist Signature TSH, Sensitive 7.0 (H) 0.3 - 4.2 02/20/2021 [facility] mIU/L 12:45 PM CDT Specimen Anatomical Collection Method Collection Time Receive d Time (Source) Location / / Volume Laterality Blood (Blood, 02/20/2021 11:09 02/20/2021 Venous) AM CDT 11:15 AM CDT Manuel Evans M.D. LAB BLOOD ADD-ON Performing Organization Address City/State/ZIP Code Phon e Number [facility] [address] [place] [address] [place] [address] System in [place] [address] documented in this encounter Visit Diagnoses Diagnosis Chronic Systolic (Congestive) Heart Fail ure (HCC) - Primary Beat Premature Ventricular Hypothyroidism documented in this encounter Additional Health Concerns Assessment Noted Time PHQ-9 Depression Total Score: 18 04/28/2018 11:27 AM C DT documented as of this encounter Care Teams Mail Censor Relationship Specialty Start Date End Date Shayla Alford D.O. PCP - General Internal Medicine 05/22/[address] [place] [address] documented as of this encounter
--- OUTSIDE RECORDS SUMMARY | 2022-05-21 11:22 | XMS_ITS | Encounter Summary ---
:1945 Author Organization [facility] Address [address] [place] [address] Care Team Providers Name Role Phone Shayla Alford D.O. Primary Care Provider [phone] Reason for Visit Reason Comments Follow-up 5 day follow up Other discuss grapefruit juice and information on COPD and who is to repeat colonoscopy Outpatient (Routine) - Closed Specialty Diagnoses / Procedures Referred By Contact Refer red To Contact Community Internal Xu Prescott M.D. [facility] [place] [address] Referral ID Status Reason Start Date Expiration Date Visits Requ ested Visits Authorized [id number] Closed 12/20/2020 12/20/2021 1 1 Encounter Details Date Type Department Care Team Description 12/25/2020 Office Visit Department of Xu Prescott M. D. Acute On Chronic Systolic (Congestive) H eart Failure (HCC) (Primary Dx); Internal Medicine in [address] [facility] Chronic Kidney Disease (CKD), Stage 3b G lomerular Filtration Rate (GFR) 30 To 44 (HCC); [place] [address] Asthma Extrinsic Moderate (HCC); [address] [phone] Diabetes Mellitus Type 2 Hyp erglycemia (HCC) [place], [place] (Work) [address] [phone] Social History Tobacco Use Types Packs/Day Years [...] do you attend caodaism or Never 2021 zoroastrian services? Do you [...] completed or the highest Martin, MEd, MARKET NEWS REPORTER, [place]) degree you have received? Sex Assigned at Date Recorded Male 05/21/2018 2:34 PM CDT documented as of this encounter Last Filed Vital Signs Vital Sign Reading Time Taken Comments Blood Pressure 130/68 12/25/2020 12:59 PM CDT manual Pulse 52 12/25/2020 12:59 PM CDT Temperature 36.6 ??C (97.8 ??F) 12/25/2020 12:59 PM CDT Respiratory Rate 16 12/25/2020 12:59 PM CDT Oxygen Saturation - - Inhaled Oxygen Concentration - - Weight 98.6 kg (217 lb 6 oz) 12/25/2020 12:59 PM CDT wi th shoes Height 189.5 cm (6' 2.61) 12/25/2020 12:59 PM CDT with shoes Body Mass Index 27.46 12/25/2020 12:59 PM CDT documented in this encounter Patient Instructions Patient InstructionsXu Prescott M.D. - 12/25/2020 1:30 PM CDT Go back to taking torsemide 40 mg daily. Weigh yourself daily. If weight increased by 3 pounds in 1 day or 5 pounds over several days, contact Dr. Reid's office for directions. Also call if you haveincrease in leg swelling or shortness of breath. documented in this encounter Progress Notes Xu Prescott M.D. - 12/25/2020 1:30 PM CDT INTERNAL MEDICINE CLINIC PROGRESS NOTE SUBJECTIVE LOCATION OF EXAM: [facility] CHIEF COMPLAINT/REASON FOR VISIT Chief Complaint Patient presents with ??? Follow-up 5 day follow up ??? Other discuss grapefruit juice and information on COPD and who is to repeat colonoscopy HISTORY OF PRESENT ILLNESS Mr. Costa is a 75 y.o. year old male here for follow-up on a recent exacerbation of his chronic systolic heart failure. I saw him last week for ER follow-up after he was seen in the emergency department with shortness of breath and increased weight and lower extremity swelling. His dose of torsemide was temporarily increased to 60 mg daily from his usual daily dose of 40 mg daily. When he saw me hissymptoms were improving, and we opted to continue on torsemide 60 mg daily for 3 more days. BMP performed on December 21 was notable for a severely elevated glucose, but stable creatinine and electrolytes. He has stage IIIB chronic kidney disease with a baseline creatinine between 1.7 and 1.9. Today he reports that his breathing has improved and his leg swelling has also improved. He is now back to taking torsemide 40 mg daily. Weight has trended down to his baseline weight. He has additional questions today about his diabetes and his asthma. He asks me if he has COPD. I reviewed his records, and there is no mention of COPD, however he does have a diagnosis of asthma. Pulmonary function tests in May showed a preserved FEV 1 and FVC with a reduced DLCO. He is scheduled for repeat PFTs next month. His concern about his diabetes is that he would like to drink fruit juice in the morning but asks how this will affect his blood sugar and what his options are. Had previously been drinking grapefruit juice, however he found that this interacts with some of his medications. He would like to drink 8 oz of some sort of juice because he no longer likes the taste of coffee and he does not simply want to drink water. REVIEW OF SYSTEMS complete review of systems negative except as noted in HPI. I have reviewed the patient's past medical history, active problems, medications, allergies, past social and family history. PHYSICAL EXAMINATION VITAL SIGNS BP 130/68 (BP Location: Right arm, Patient Position: Sitting, Cuff Size: Large) Comment: manual Pulse (!) 52 Temp 36.6 ??C (Temporal) Resp 16 Ht 189.5 cm Comment: with shoes Wt 98.6 kg Comment: with shoes BMI 27.46 kg/m?? General: No apparent distress. Head: NCAT HEENT: PERRLA, EOMI, normal oral mucosa Neck: Neck is supple. Thyroid is normal size and shape. No JVP Lymphatic: No cervical submandibular or supraclavicular lymphadenopathy. Cardiovascular: Regular rate and rhythm. S1, S2 without murmurs. No rubs or gallops. 1+ lower extremity edema Pulmonary: Clear to auscultation bilaterally without crackles, wheezes, rhonchi. Breathing comfortably. Gastrointestinal: Rounded in contour, normal bowel sounds, no pain to palpation, no masses or organomegaly, no rebound or guarding. Skin: no rash or lesion Neurologic: CN II-XII grossly intact. Mental: AAO x3. Mood and affect appropriate. ASSESSMENT / PLAN 1. Acute On Chronic Systolic (Congestive) Heart Failure (HCC) Euvolemic on exam with stable mild lower extremity swelling. I suggest that he return to taking torsemide 40 mg daily and weigh himself daily. If weight increases by 3 lb in 1 day or 5 lb over several days, he should contact his primary care provider. 2. Chronic Kidney Disease (CKD), Stage 3b Glomerular Filtration Rate (GFR) 30 To 44 (HCC) Stable creatinine on most recent labs. Blood pressure is well controlled today. Continue his currentregimen. 3. Asthma Extrinsic Moderate (HCC) PFTs were consistent with asthma. I had a brief discussion with him on the differences between COPD and asthma and explained that he does not have a diagnosis of COPD based on the available information. Recommended that he use albuterol as his rescue inhaler rather than using Symbicort when he is sympt omatic, as he has been doing. 4. Diabetes Mellitus Type 2 Hyperglycemia (HCC) A1c is 8.3. Suggested that he follow-up with his primary care provider regarding his diabetes control. Reviewed that any fruit juices going to increase his blood sugar. When he asked for alternative options I suggested unsweetened iced tea or ice tea with artificial sweetener. I spent a total of 30 minutes reviewing the patient's medical records and diagnostic tests, seeing the patient, speaking with the nursing team, placing the orders noted above, coordinating care, and documenting in the record. Xu Prescott M.D. documented in this encounter Plan of Treatment Not on filedocumented as of this encounter Visit Diagnoses Diagnosis Acute On Chronic Systolic (Congestive) H eart Failure (HCC) - Primary Chronic Kidney Disease (CKD), Stage 3b G lomerular Filtration Rate (GFR) 30 To 44 (HCC) Asthma Extrinsic Moderate (HCC) Diabetes Mellitus Type 2 Hyperglycemia ( HCC) documented in this encounter Additional Health Concerns Infection Onset Date Last Indicated Resolved Time COVID19 Pending 12/23/2020 12/24/2020 12/25/2020 2:43 PM CDT Assessment Noted Time PHQ-9 Depression Total Score: 18 04/28/2018 11:27 AM C DT documented as of this encounter Care Teams Fish Drier Relationship Specialty Start Date End Date Shayla Alford D.O. PCP - General Internal Medicine 05/22/[address] [address] (work) documented as of this encounter
--- OUTSIDE RECORDS SUMMARY | 2022-05-21 11:22 | XMS_ITS | Encounter Summary ---
:1945 Author Organization [facility] Address [address] [place] [address] Care Team Providers Name Role Phone Shayla Alford D.O. Primary Care Provider [phone] Encounter Details Date Type Department Care Team Description 01/30/2021 Hospital Encounter Department of Augustin Wong [facility] Heart (HCC); Laboratory Medicine Pato Duque Anemia in [facility] [address] [place], [place] 300 [facility] [address] [place], [place] [phone] [address] (Work) [phone] Social History Tobacco Use Types Packs/Day Years [...] do you attend quaker or Never 2021 evangelical services? Do you [...] have completed or the highest Martin, MEd, VICE PRESIDENT TALENT MANAGEMENT, [place]) degree you have received? Sex [...] by mouth tabletIndications: daily. 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 BASIC METABOLIC Routine 01/30/2021 2:57 PM Failure Heart (HCC) Results for this PANEL, S/P CDT procedure are i n the results section. documented in this encounter Results (ABNORMAL) Basic Metabolic Panel (01/30/2021 2:57 PM CDT) Analysis Performed At Patho logist Time Signature Potassium, P 4.1 3.6 - 5.2 01/30/2021 [facility] mmol/L 6:34 PM CDT Sodium, P 139 135 - 145 01/30/2021 [facility] mmol/L 6:34 PM CDT Chloride, P 102 98 - 107 01/30/2021 [facility] mmol/L 6:34 PM CDT Bicarbonate, P 25 22 - 29 01/30/2021 [facility] mmol/L 6:34 PM CDT Anion Gap, P 12 7 - 15 01/30/2021 [facility] 6:34 PM CDT BUN (Blood Urea 39 (H) 8 - 24 01/30/2021 [facility] Nitrogen), P mg/dL 6:34 PM CDT Creatinine 1.60 (H) 0.74 - 01/30/2021 [facility] 1.35 mg/dL 6:34 PM CDT eGFR-Black/Afri 47 (L) >=60 01/30/2021 [facility] [place] mL/min/BSA 6:34 PM CDT Comment: ----ADDITIONAL INFORMATION---- Estimated GFR calculated using the 2009 CKD_EPI creatinine equation. eGFR Non-Black/ 41 (L) >=60 mL/min/BSA 01/30/2021 6:34 PM CDT [facility] [place] Comment: ----ADDITIONAL INFORMATION---- Estimated GFR calculated using the 2009 CKD_EPI creatinine equation. Calcium, Total, P 8.8 8.8 - 10.2 mg/dL 01/30/2021 6:34 PM CDT [facility] Glucose, P 211 (H) 70 - 140 mg/dL 01/30/2021 6:34 PM CDT O MARCK Specimen Anatomical Collection Method Collection Time Receive d Time (Source) Location / / Volume Laterality Blood (Blood, 01/30/2021 2:57 PM 01/31/20 5:56 Venous) CDT PM CDT Augustin Wong M.D. LAB BLOOD ADD-ON Performing Organization Address City/State/ZIP Code Phon e Number [facility]- [address] [place] [address] [place] [address] System in [place] [address] (ABNORMAL) CBC with Differential, Blood (01/30/2021 2:57 PM CDT) [facility] Method Time Signature Hemoglobin 10.7 (L) 13.2 - 01/30/2021 FB60 16.6 g/dL 3:01 PM CDT Hematocrit 32.0 (L) 38.3 - 01/30/2021 FB60 48.6 % 3:01 PM CDT Erythrocytes 3.47 (L) 4.35 - 01/30/2021 FB60 5.65 3:01 PM CDT x10(12)/L MCV 92.2 78.2 - 01/30/2021 FB60 97.9 fL 3:01 PM CDT RBC Distrib Width 14.1 11.8 - 01/30/2021 FB60 14.5 % 3:01 PM CDT Platelet Count 188 135 - 317 01/30/2021 FB60 x10(9)/L 3:01 PM CDT Leukocytes 7.1 3.4 - 9.6 01/30/2021 FB60 x10(9)/L 3:01 PM CDT Neutrophils 5.09 1.56 - 01/30/2021 FB60 6.45 3:01 PM CDT x10(9)/L Lymphocytes 1.02 0.95 - 01/30/2021 FB60 3.07 3:01 PM CDT x10(9)/L Monocytes 0.50 0.26 - 01/30/2021 FB60 0.81 3:01 PM CDT x10(9)/L Eosinophils 0.38 0.03 - 01/30/2021 FB60 0.48 3:01 PM CDT x10(9)/L Basophils 0.06 0.01 - 01/30/2021 FB60 0.08 3:01 PM CDT x10(9)/L Specimen Anatomical Collection Method Collection Time Receive d Time (Source) Location / / Volume Laterality Blood (Blood, 01/30/2021 2:57 PM 01/31/20 21 2:58 Venous) CDT PM CDT Augustin Wong M.D. LAB BLOOD ADD-ON Performing Organization Address City/State/ZIP Code Phon e Number [address] [place] [address] [facility] [place] [address] System [address] documented in this encounter Visit Diagnoses Diagnosis Failure Heart (HCC) Anemia documented in this encounter Additional Health Concerns Assessment Noted Time PHQ-9 Depression Total Score: 18 04/28/2018 11:27 AM C DT documented as of this encounter Care Teams Manager Food Beverage Relationship Specialty Start Date End Date Shayla Alford D.O. PCP - General Internal Medicine 05/22/20 [address], [place] [address] documented as of this encounter
--- OUTSIDE RECORDS SUMMARY | 2022-05-21 11:22 | XMS_ITS | Encounter Summary ---
:1945 Author Organization [facility] Address [address] [place] [address] Care Team Providers Name Role Phone Shayla Alford D.O. Primary Care Provider [phone] Reason for Visit Reason Comments Follow-up 1 week Appointment Request (Routine) - Closed Specialty Diagnoses / Procedures Referred By Contact Refer red To Contact Family Medicine Referral ID Status Reason Start Date Expiration Date Visits Requ ested Visits Authorized [id number] Closed 01/30/2021 01/30/2022 1 1 Encounter Details Date Type Department Care Team Description 02/06/2021 Office Visit Department of Family Augustin Wong Acu te On Chronic Diastolic (Congestive) Heart Failure (HCC) (Primary Dx); Medicine, [facility], in [address] [address] [place], [place] [phone] [address] (Work) [phone] Social History Tobacco Use Types Packs/Day Years [...] or relatives? How often do you attend scientologist or Never 2021 denominational services? Do you belong to any clubs or No 10/09/2021 organizations such as scientologist groups, [employer], [employer] or athletic groups, or school groups? How [...] have completed or the highest Martin, MEd, SHOEMAKING FINISHER, CAYDEN) degree you have received? Sex Assigned at Date Recorded Male 05/21/2018 2:34 PM CDT documented as of this encounter Last Filed Vital Signs Vital Sign Reading Time Taken Comments Blood Pressure 120/60 02/06/2021 8:46 AM CDT Pulse 52 02/06/2021 8:46 AM CDT Temperature 36 ??C (96.8 ??F) 02/06/2021 8:46 AM CDT Respiratory Rate - - Oxygen Saturation 96% 02/06/2021 8:46 AM CDT Inhaled Oxygen Concentration - - Weight 97 kg (213 lb 13.5 oz) 02/06/2021 8:46 AM CDT Height 189 cm (6' 2.41) 02/06/2021 8:46 AM CDT Body Mass Index 27.16 02/06/2021 8:46 AM CDT documented in this encounter Progress Notes Augustin Wong M.D. - 02/06/2021 9:00 AM CDT Progress Note Patient is 75 years old male with multiple comorbidities, past medical history significant for type 2 diabetes, hypertension, hyperlipidemia, congestive heart failure, COPD/asthma, chronic kidney disease, anemia, stroke/TIA, pancreatitis who presented today to the clinic for 1 week follow-up. Patient was seen last week with shortness of breath and volume overload. Torresmide dose increased from 40-60mg daily. Patient lost 3 kg since we increased the dose, his weight went from 100 kg to 97 kg. His symptoms have significantly improved. He also continue taking Symbicort twice daily. His stated that I need to stress that him to take it daily instead of as needed. He denies any other symptoms such as chest pain, abdominal pain, palpitation, lower leg edema, headache, dizziness, shortness of breath, orthopnea, paroxysmal nocturnal dyspnea. He has been feeling well and not tired as before. Allergies Allergen Reactions ??? Doxycycline Anaphylaxis and [...] (FOR IMMEDIATE RELIEF)., Disp: , Rfl: ??? amiodarone (PACERONE) 200 mg tablet, Take 200 mg by mouth daily., Disp: , Rfl: ??? atorvastatin (for_LIPITOR) 80 mg tablet, Take 80 mg by mouth daily. , Disp: , Rfl: ??? blood sugar diagnostic (ACCU-CHEK MIHAI PLUS TEST STRP) strips, Reports checking 4-5 times daily. , Disp: , Rfl: ??? cholecalciferol, vitamin D3, (cholecalciferol) 1,000 Unit tablet, Take 1,000 Units by mouth daily., Disp: , Rfl: ??? clopidogrel (PLAVIX) 75 mg tablet, Take 1 tablet by mouth daily., Disp: , Rfl: ??? escitalopram (LEXAPRO) 10 mg tablet, Take 1 tablet (10 mg total) by mouth daily., Disp: 30 tablet, Rfl: 11 ??? hydrALAZINE (APRESOLINE) 25 mg tablet, Take 1 tablet (25 mg total) by mouth every 8 (eight) hours., Disp: 90 tablet, Rfl: 11 ??? insulin aspart U-100 (NovoLOG FlexPen) 100 unit/mL (3 mL) injection, Inject 0.06 mL (6 Units total) under the skin 3 (three) times a day with meals. Hold if not eating. (Patient taking differently:Inject 11 Units under the skin 3 (three) times a day with meals. ), Disp: , Rfl: ??? insulin glargine (Lantus U-100 Insulin) 100 unit/mL injection, Inject 28 Units under the skin atbedtime. (Patient taking differently: Inject 30 Units under the skin at bedtime. ), Disp: 10 mL, Rfl: 12 ??? isosorbide mononitrate (IMDUR) 60 mg 24 hr tablet, Take 1 tablet (60 mg total) by mouth daily., Disp: , Rfl: ??? levothyroxine (SYNTHROID, LEVOTHROID) 100 mcg tablet, Take 1 tablet (100 mcg total) by mouth daily., Disp: 90 tablet, Rfl: 3 ??? PEN NEEDLE, DIABETIC MISC, Yani Fine 30 disposable needles. For use with Insulin Pens, 4 times daily, Disp: , Rfl: ??? SYRINGE-NEEDLE,INSULIN,0.5 ML (INSULIN SYRINGE MISC), , Disp: , Rfl: ??? torsemide (DEMADEX) 20 mg tablet, Take 2 tablets (40 mg total) by mouth daily., Disp: 60 tablet,Rfl: 3 ??? traZODone (DESYREL) 100 mg tablet, Take 1 tablet (100 mg total) by mouth at bedtime as needed for sleep., Disp: 30 tablet, Rfl: 1 ??? budesonide-formoteroL (SYMBICORT) 160-4.5 mcg/actuation inhaler, Inhale 2 puffs 2 (two) times a day. Start at 1 puff twice daily x 4 weeks, then 2 puffs twice daily if tolerated., Disp: 1 Inhaler, Rfl: 11 ??? metoprolol succinate (TOPROL-XL) 25 mg 24 hr tablet, Take 1 tablet (25 mg total) by mouth daily.Do not crush or chew., Disp: 30 tablet, Rfl: 11 Past Medical History: Diagnosis Date ??? Apnea Sleep Obstructive 06/18/2011 intolerant to CPAP therapy ??? Asthma (HCC) 10/16/2009 [facility] but probably some degree of [facility]. ??? Asthma NOS ??? Chronic Obstructive Pulmonary Disease (HCC) ??? [...] head on 09/17/2017 ??? Transient Ischemic Attack Social History Socioeconomic History ??? Marital status: Spouse name: Not on file ??? Number of children: Not on file ??? Years of education: Not on file ??? Highest education level: Master's degree (e.g., MA, MS, Martin, MEd, SHOEMAKING FINISHER, CAYDEN) Occupational History Employer: RETIRED Tobacco Use ??? Smoking status: Former Smoker Packs/day: 2.00 Years: 0.00 Pack years: 0.00 Types: Cigarettes, Pipe Start date: 07/13/1955 Quit date: 1980 Years since quittin.4 ??? Smokeless tobacco: Never Used Substance and Sexual Activity ??? Alcohol use: No ??? Drug use: Never ??? Sexual activity: Defer Other Topics Concern ??? Not on file [...] Exercise per Session: Not on file Stress: Stress Concern Present ??? Feeling of Stress : To some extent Social Connections: Moderately Isolated ??? Frequency of Communication with Friends and Family: Once a week ??? Frequency of Social Gatherings with Friends and Family: More than three times a week ??? Attends Buddhism Services: Never ??? Active Member of Clubs or Organizations: No ??? Attends Club or Organization Meetings: Never ??? Marital Status: Intimate Partner Violence: Not At Risk ??? Fear of Current or Ex-Partner: No ??? Emotionally Abused: No ??? Physically Abused: No ??? Sexually Abused: No All other systems reviewed and are negative. Vitals: 02/06/21 0846 BP: 120/60 BP Location: Right arm Patient Position: Sitting Cuff Size: Large Pulse: (!) 52 Temp: 36 ??C SpO2: 96% Weight: 97 kg Height: 189 cm Constitutional Appearance: He is well-developed. HENT Head: Normocephalic and atraumatic. Right Ear: External ear normal. Left Ear: External ear normal. Nose: Nose normal. Eyes Conjunctiva/sclera: Conjunctivae normal. Pupils: Pupils are equal, round, and reactive to light. Cardiovascular Rate and Rhythm: Normal rate and regular rhythm. Heart sounds: Normal heart sounds. Pulmonary Effort: Pulmonary effort is normal. Breath sounds: Normal breath sounds. Abdominal General: Bowel sounds are normal. Palpations: Abdomen is soft. Musculoskeletal General: Normal range of motion. Cervical back: Normal range of motion and neck supple. Skin General: Skin is warm and dry. Neurological Mental Status: He is alert and oriented to person, place, and time. Deep Tendon Reflexes: Reflexes are normal and symmetric. Jonnathan was seen today for follow-up. Diagnoses and all orders for this visit: Acute On Chronic Diastolic (Congestive) Heart Failure (HCC) - Basic Metabolic Panel; Future Effusion Pleural Significant improvement in his symptoms, his weight is down to 97 kg today. He is currently taking torsemide 60 mg daily, we will decrease the dose to 40 mg daily. Dose adjustment according to his weight advised. If weight increases by 3 lb in 1 day or 5 lb over several days, he will increase Torsemide 60 mg daily for 3-5 days. We discussed pulmonology recommendation with managing his fluid overload that will improve his Pleural effusion. We may need to get x-ray in the future to assess his effusion. He will also follow up with Cardiology on 02/22/2021. Will check his BUN and creatinine today. We will also follow up with himin 2-3 weeks. documented in this encounter Plan of Treatment Not on filedocumented as of this encounter Results (ABNORMAL) Basic Metabolic Panel (02/06/2021 10:25 AM CDT) Analysis Performed At Patho logist Time Signature Potassium, P 4.5 3.6 - 5.2 02/06/2021 [facility] mmol/L 2:00 PM CDT Sodium, P 137 135 - 145 02/06/2021 [facility] mmol/L 2:00 PM CDT Chloride, P 102 98 - 107 02/06/2021 [facility] mmol/L 2:00 PM CDT Bicarbonate, P 26 22 - 29 02/06/2021 [facility] mmol/L 2:00 PM CDT Anion Gap, P 9 7 - 15 02/06/2021 [facility] 2:00 PM CDT BUN (Blood Urea 45 (H) 8 - 24 02/06/2021 [facility] Nitrogen), P mg/dL 2:00 PM CDT Creatinine 1.99 (H) 0.74 - 02/06/2021 [facility] 1.35 mg/dL 2:00 PM CDT eGFR-Black/Afri 36 (L) >=60 02/06/2021 [facility] can [place]ian mL/min/BSA 2:00 PM CDT Comment: ----ADDITIONAL INFORMATION---- Estimated GFR calculated using the 2009 CKD_EPI creatinine equation. eGFR Non-Black/ 31 (L) >=60 mL/min/BSA 02/06/2021 2:00 PM CDT [facility] [place] Comment: ----ADDITIONAL INFORMATION---- Estimated GFR calculated using the 2009 CKD_EPI creatinine equation. Calcium, Total, P 9.0 8.8 - 10.2 mg/dL 02/06/2021 2:00 PM CDT [facility] Glucose, P 214 (H) 70 - 140 mg/dL 02/06/2021 2:00 PM CDT O MARCK Specimen Anatomical Collection Method Collection Time Receive d Time (Source) Location / / Volume Laterality Blood (Blood, 02/06/2021 10:25 02/06/2021 1:32 Venous) AM CDT PM CDT Augustin Wong M.D. LAB BLOOD ADD-ON Performing Organization Address City/State/ZIP Code Phon e Number [facility]- [address] [place] [address] [place] [address] System in [place] [address] [facility] documented in this encounter Visit Diagnoses Diagnosis Acute On Chronic Diastolic (Congestive) Heart Failure (HCC) - Primary Effusion Pleural documented in this encounter Additional Health Concerns Assessment Noted Time PHQ-9 Depression Total Score: 18 04/28/2018 11:27 AM C DT documented as of this encounter Care Teams Security Rep Relationship Specialty Start Date End Date Shayla Alford D.O. PCP - General Internal Medicine 05/22/[address] [place] [address] documented as of this encounter
--- OUTSIDE RECORDS SUMMARY | 2022-05-21 11:22 | XMS_ITS | Encounter Summary ---
:1945 Author Organization [facility] Address [address] [place] [address] Care Team Providers Name Role Phone Shayla Alford D.O. Primary Care Provider Encounter Details Date Type Department Care Team Description 01/11/2021 Hospital Encounter Department of José Luis Alford thyroidism Laboratory Medicine in Gianna Mcguire [place], [place] [address] [place] [phone] Social History Tobacco Use Types Packs/Day [...] or relatives? How often do you attend mu-ism or Never 2021 jew services? Do you belong to any clubs or No 10/09/2021 organizations such as mu-ism groups, unions, fraternal or athletic groups, or [...] have completed or the highest Martin, MEd, CONSULTING PROPERTY MANAGER, CAYDEN) degree you have received? Sex [...] by mouth tabletIndications: daily. 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 documented in this encounter Results (ABNORMAL) S-TSH (Thyroid-Stimulating Hormone - Sensitive) (01/11/2021 11:25 AM CDT) P athologist Signature TSH, Sensitive 10.3 (H) 0.3 - 4.2 01/11/2021 [facility] mIU/L 12:14 PM CDT Specimen Anatomical Collection Method Collection Time Receive d Time (Source) Location / / Volume Laterality Blood (Blood, 01/11/2021 11:25 01/11/2021 Venous) AM CDT 11:32 AM CDT Shayla Alford D.O. LAB BLOOD ADD-ON Performing Organization Address City/State/ZIP Code Phon e Number [facility] [address] [place] [address] [place] [address] System in [place] [address] documented in this encounter Visit Diagnoses Diagnosis Hypothyroidism documented in this encounter Additional Health Concerns Assessment Noted Time PHQ-9 Depression Total Score: 18 04/28/2018 11:27 AM C DT documented as of this encounter Care Teams Accounting Software Specialist Relationship Specialty Start Date End Date Shayla Alford D.O. PCP - General Internal Medicine 05/22/[address] [place] [address] documented as of this encounter
--- OUTSIDE RECORDS SUMMARY | 2022-05-21 11:22 | XMS_ITS | Encounter Summary ---
:1945 Author Organization [facility] Address [address] [place] [address] Care Team Providers Name Role Phone Shayla Alford D.O. Primary Care Provider [phone] Encounter Details Date Type Department Care Team Description 01/31/2021 Clinical Communication Department of [facility] Kaushki Wong Medicine, [place], [address] [address] [place], [place] [phone] (Work) [phone] Social History Tobacco Use Types Packs/Day Years [...] do you attend advent or Never 2021 episcopalian services? Do you [...] have completed or the highest Martin, MEd, COOPERER, CAYDEN) degree you have received? Sex Assigned at Date Recorded Male 05/21/2018 2:34 PM CDT documented as of this encounter Miscellaneous Notes Telephone Encounter - Gerry Fernandez V., C.M.A. - 01/31/2021 5:14 PM CDT SUBJECTIVE CHIEF COMPLAINT / REASON FOR CALL No chief complaint on file. Information Discussed Contacted the patient and informed them that the provider has not heard from the pulmonary team. Once we've heard back, we will speak with them. PLAN Disposition/Recommendation: notified provider and awaiting recommendations Information/Education: patient/caller able to teach back Caller agreeable to plan of care: yes The following references were used: none Telephone Encounter - Irene Luna - 01/31/2021 3:11 PM CDT Reason for Communication: Patient is calling in requesting to speak with Dr. Wong in regards to pumlonary. Unable to reach nursing at the moment. Patient stated he was informed that provider would be giving him a call. Current Can Nursing/Provider leave a detailed message: Action Needed: Please review and advise. Name of Medication (if relevant): documented in this encounter Plan of Treatment Not on filedocumented as of this encounter Visit Diagnoses Not on filedocumented in this encounter Additional Health Concerns Assessment Noted Time PHQ-9 Depression Total Score: 18 04/28/2018 11:27 AM C DT documented as of this encounter Care Teams Staff Nurse Midwife Relationship Specialty Start Date End Date Shayla Alford D.O. PCP - General Internal Medicine 05/22/20 [address] [address] documented as of this encounter
--- OUTSIDE RECORDS SUMMARY | 2022-05-21 11:22 | XMS_ITS | Encounter Summary ---
:1945 Author Organization [facility] Address [address] [place] [address] Care Team Providers Name Role Phone Shayla Alford D.O. Primary Care Provider Encounter Details Date Type Department Care Team Description 02/06/2021 Hospital Encounter Department of Augustin Wong O n Chronic Laboratory Medicine Pato Duque Diastolic in [place] [address] (Congestive) Heart [place], [place] Failure (HCC) [address] [facility] [place] [address] [place], [place] [phone] (Work) [phone] Social History Tobacco Use Types Packs/Day Years [...] do you attend synagogue or Never 2021 mosque services? Do you belong to any clubs [...] have completed or the highest Martin, MEd, SPINNING OPERATOR, CAYDEN) degree you have received? Sex [...] by mouth tabletIndications: daily. 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 documented in this encounter Results [...] eGFR-Black/Afri 36 (L) >=60 02/06/2021 [facility] can [place] mL/min/BSA 2:00 PM CDT Comment: ----ADDITIONAL INFORMATION---- Estimated GFR calculated using the 2009 CKD_EPI creatinine equation. eGFR Non-Black/ 31 (L) >=60 mL/min/BSA 02/06/2021 2:00 PM CDT [facility] [place] Comment: ----ADDITIONAL INFORMATION---- Estimated GFR calculated using [...] Organization Address City/State/ZIP Code Phon e Number [facility]- [address] [place] [address] [place] [address] System in [place] [address] documented in this encounter Visit Diagnoses Diagnosis Acute On Chronic Diastolic (Congestive) Heart Failure (HCC) documented in this encounter Additional Health Concerns Assessment Noted Time PHQ-9 Depression Total Score: 18 04/28/2018 11:27 AM C DT documented as of this encounter Care Teams Epilepsy Physician Relationship Specialty Start Date End Date Shayla Alford D.O. PCP - General Internal Medicine 05/22/[address] [place] [phone] documented as of this encounter
--- OUTSIDE RECORDS SUMMARY | 2022-05-21 11:22 | XMS_ITS | Encounter Summary ---
:1945 Author Organization [facility] Address [address] [place] [address] Care Team Providers Name Role Phone Shayla Alford D.O. Primary Care Provider [phone] Encounter Details Date Type Department Care Team Description 12/24/2020 Lab Department of [facility] Ligia Alford For Screening Medicine, [facility] Tulio Mcguire For Other Viral Diseases [address] (COVID-19) [place], [place] [address] [facility] [address] [place] [address] [phone] Social History Tobacco Use Types Packs/Day Years [...] you attend roman catholic or Never 2021 yazidism services? Do you belong to any clubs [...] have completed or the highest Martin, MEd, COVERING MACHINE OPERATOR, CAYDEN) degree you have received? Sex Assigned at Date Recorded Male 05/21/2018 2:34 PM CDT documented as of this encounter Plan of Treatment Not on filedocumented as of this encounter Procedures Procedure Name Priority Date/Time Associated Diagnosis Comme nts SARS CORONAVIRUS-2 Routine 12/24/2020 9:41 AM Encounter For Re sults for this RNA, V CDT Screening For Other procedur e are in Viral Diseases the results (COVID-19) section. documented in this encounter Results SARS Coronavirus-2 RNA, V Asymptomatic (12/24/2020 9:41 AM CDT) [facility] Method Time Signature SARS-CoV-2 Swab, 12/25/2020 [facility] Specimen Nasopharynx 2:42 PM CDT Source SARS CoV-2 Undetected Undetected 12/25/2020 [facility] RNA, TMA 2:42 PM CDT Comment: SARS-CoV-2 RNA absent. This result does not rule out COVID-19 in the patient, as the sensitivity of the test depends o n the timing of the specimen collection and the quality of the specim en. Result should be correlated with patient's history and clinical presentat ion. ----ADDITIONAL INFORMATION---- This molecular amplification test was pe rformed using the Aptima SARS-CoV-2 assay ([employer] on the [employer] under emergency use authorization (EUA) by the U.S. Food and Drug Administ ration. Fact sheets for this EUA assay can be fo und at the following links: For Healthcare Providers: https://www.fd a.gov/media/011043/download For Patients: https://www.fda.gov/media/ 676954/download Specimen Anatomical Collection Method Collection Time Receive d Time (Source) Location / / Volume Laterality Varies 12/24/2020 9:41 AM 7:14 (Nasopharynx) CDT AM CDT Shayla Alford D.O. LAB MICROBIOLOGY - GENERAL ORDERABLES Performing Organization Address City/State/[facility] Phon e Number [facility]- [address] [place] [address] [place] [address] System [address] documented in this encounter Visit Diagnoses Diagnosis Encounter For Screening For Other Viral Diseases (COVID-19) documented in this encounter Additional Health Concerns Infection Onset Date Last Indicated Resolved Time COVID19 Pending 12/23/2020 12/24/2020 12/25/2020 2:43 PM CDT Assessment Noted Time PHQ-9 Depression Total Score: 18 04/28/2018 11:27 AM C DT documented as of this encounter Care Teams Ceiling Cleaner Relationship Specialty Start Date End Date Shayla Alford D.O. PCP - General Internal Medicine 05/22/[address] [place] [phone] documented as of this encounter
--- OUTSIDE RECORDS SUMMARY | 2022-05-21 11:22 | XMS_ITS | Encounter Summary ---
:1945 Author Organization [facility] Address [address] [place] [address] Care Team Providers Name Role Phone Shayla Alford D.O. Primary Care Provider [phone] Reason for Visit Reason Comments Doctor requesting to discuss patient with you Encounter Details Date Type Department Care Team Description 01/30/2021 Clinical Division of Ailyn Sims Doctor shadia Duque M.D. to discuss patient Medicine in [address] [place] [address] with you [facility] [address] [place] [address] [place], [place] (Work) [phone] Social History Tobacco Use Types Packs/Day Years [...] do you attend mormonism or Never 2021 buddhist services? Do you belong to any clubs [...] have completed or the highest Martin, MEd, COSTUME RENTAL CLERK, CAYDEN) degree you have received? Sex Assigned at Date Recorded Male 05/21/2018 2:34 PM CDT documented as of this encounter Miscellaneous Notes Telephone Encounter - Lorie Palma - 01/30/2021 3:[address] Wong called and would like to get your thoughts on Mr. Costa. She said that he is having SOB and his MRCP from January 19, 2021 shows pleural effusion--she said large on the right and moderate on the left. She is looking for your thoughts on next steps for the patient. Personal She is aware that you are away/off today and returning tomorrow. Thanks. Lorie documented in this encounter Plan of Treatment Not on filedocumented as of this encounter Visit Diagnoses Not on filedocumented in this encounter Additional Health Concerns Assessment Noted Time PHQ-9 Depression Total Score: 18 04/28/2018 11:27 AM C DT documented as of this encounter Care Teams Portable Sawmill Operator Relationship Specialty Start Date End Date Shayla Alford D.O. PCP - General Internal Medicine 05/22/202199 [address] [place] [address] documented as of this encounter
--- OUTSIDE RECORDS SUMMARY | 2022-05-21 11:22 | XMS_ITS | Encounter Summary ---
:1945 Author Organization [facility] Address [address] [place] [address] Care Team Providers Name Role Phone Shayla Alford D.O. Primary Care Provider [phone] Encounter Details Date Type Department Care Team Description 12/27/2020 Hospital Encounter Department of Westley corley Obstructive Pulmonary Medicine n, Soraya Mcguire Pulmonary Disease in [place], [address] [facility] ([facility]) [address] [facility] [place] [phone] Social History Tobacco Use Types Packs/Day Years [...] do you attend confucianism or Never 2021 jew services? Do you [...] have completed or the highest Martin, MEd, TURBINE BLADE ASSEMBLER, [place]) degree you have received? Sex [...] daily SYRINGE-NEEDLE,INSULIN,0. 0 5 ML (INSULIN SYRINGE [facility]) amiodarone (PACERONE) 200 Take 200 mg by [...] by mouth tabletIndications: daily. 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 Shayla Alford D.O. PFT ORDERABLES Performing Organization Address City/State/ZIP Code Phon e Number [facility] documented in this encounter Visit Diagnoses Diagnosis Chronic Obstructive Pulmonary Disease Wi thout Exacerbation (HCC) documented in this encounter Additional Health Concerns Assessment Noted Time PHQ-9 Depression Total Score: 18 04/28/2018 11:27 AM C DT documented as of this encounter Care Teams Loom Inspector Relationship Specialty Start Date End Date Shayla Alford D.O. PCP - General Internal Medicine 05/22/20 [address] [place] [address] documented as of this encounter
--- OUTSIDE RECORDS SUMMARY | 2022-05-21 11:22 | XMS_ITS | Encounter Summary ---
:1945 Author Organization [facility] Address [address] [place] [address] Care Team Providers Name Role Phone Shayla Alford.OMauro Primary Care Provider Reason for Visit Reason Comments Form Review [facility] Encounter Details Date Type Department Care Team Description 01/07/2021 Clinical Communication Department of Alexys marin Review ([facility]) Internal Medicine in [place], [place] D.O. [address] [facility] [address] [place], [place] [phone] Social History Tobacco Use Types Packs/Day [...] do you attend rastafarian or Never 2021 church services? Do you [...] place to sleep or slept in a mcc (including now)? Education Answer Date Recorded What is the highest level of school Master's degree (e.g., M [place], [place], 03/23/2019 you have completed or the highest Martin, MEd, AUTHORIZER, CAYDEN) degree you have received? Sex Assigned at Date Recorded Male 05/21/2018 2:34 PM CDT documented as of this encounter Miscellaneous Notes Telephone Encounter - Tari Crystal - 01/07/2021 2:19 PM CDT [facility] outside records have been uploaded into patient's chart under Chart Review tab / Encounters - Document Viewer Routed to Shayla Alford D.O.. documented in this encounter Plan of Treatment Not on filedocumented as of this encounter Visit Diagnoses Not on filedocumented in this encounter Additional Health Concerns Assessment Noted Time PHQ-9 Depression Total Score: 18 04/28/2018 11:27 AM C DT documented as of this encounter Care Teams Plastic Tubing Insulation Supervisor Relationship Specialty Start Date End Date Shayla Alford D.O. PCP - General Internal Medicine 05/22/[address] [place] [phone] documented as of this encounter
--- OUTSIDE RECORDS SUMMARY | 2022-05-21 11:22 | XMS_ITS | Encounter Summary ---
:1945 Author Organization [facility] Address [address] [place] [address] Care Team Providers Name Role Phone Shayla Alford D.O. Primary Care Provider [phone] Reason for Visit Reason Comments Shortness of Breath Has been going on for about a year but worse over the past 3 weeks, no head aches or dizz iness, he has balance issues. He states that his lungs just d ont feel like they have the capacity to take in enough oxygen. He has seen a automotive engineer and they said his lungs are good. He wonders if it may be his heart. He has also been more tired tracy n usual. Appointment Request (Routine) - Closed Specialty Diagnoses / Procedures Referred By Contact Refer red To Contact Referral ID Status Reason Start Date Expiration Date Visits Requ ested Visits Authorized [id number] Closed 01/30/2021 01/30/2022 1 1 Encounter Details Date Type Department Care Team Description 01/30/2021 Office Visit Department of [facility] Augustin Wong Fai [facility] ([facility]) (Primary Dx); Cadence Fleming M.D. 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 How often do you attend confucianist or Never 2021 faith services? Do you belong to any clubs or No 10/09/2021 organizations such as confucianist groups, unions, fraternal or athletic groups, or [...] have completed or the highest Martin, MEd, IMMUNOLOGY TEACHER, [place]) degree you have received? Sex Assigned at Date Recorded Male 05/21/2018 2:34 PM CDT documented as of this encounter Last Filed Vital Signs Vital Sign Reading Time Taken Comments Blood Pressure 135/55 01/30/2021 2:10 PM CDT Pulse 50 01/30/2021 2:10 PM CDT Temperature 37.2 ??C (99 ??F) 01/30/2021 2:06 PM CDT Respiratory Rate 18 01/30/2021 2:06 PM CDT Oxygen Saturation 95% 01/30/2021 2:10 PM CDT Inhaled Oxygen Concentration - - Weight 100 kg (221 lb 5.5 oz) 01/30/2021 2:06 PM CDT Height 189.5 cm (6' 2.61) 01/30/2021 2:06 PM CDT Body Mass Index 27.96 01/30/2021 2:06 PM CDT documented in this encounter Progress Notes Augustin Wong M.D. - 01/30/2021 2:15 PM CDT Progress Note Patient is 75 years old male with multiple comorbidities, past medical history significant for type 2 diabetes, hypertension, hyperlipidemia, congestive heart failure, COPD/asthma, chronic kidney disease, anemia, stroke/TIA, pancreatitis who presented today with his to the clinic for worsening ofhis shortness of breath. Patient states that he is experiencing increasing shortness of breath for about a month. He has a history of asthma and CHF. He was seen in the ER on 12/18 for increased shortness of breath due to CHF and he also had bilateral pleural effusion. ER recommended increasing his Torsemide and f/u with PCP. He was seen in follow up and has been taking his usual dose now of Torsemide 40 mg. He does weigh himself daily and notes about 8 lbs weight gain over the last week. He also has new mild edema in both lower extremities. He notices some episodes of asthma exacerbation related to triggers such as flowersand some cleaning products. He is finding that he is needing to use his inhalers more frequently lately. He continues not to use his Symbicort. He denies any chest pain, dizziness, headache, abdominal pain, nausea, vomiting, diarrhea or constipation. Shortness of Breath Allergies Allergen Reactions ??? Doxycycline Anaphylaxis and [...] by mouth daily., Disp: , Rfl: ??? metoprolol succinate (TOPROL-XL) 50 mg 24 hr tablet, Take 1 tablet (50 mg total) by mouth daily.Do not crush [...] if tolerated. (Patient not taking: Reported on 12/25/2020 ), Disp: 1 Inhaler, Rfl: 11 ??? dulaglutide (Trulicity) 0.75 mg/0.5 mL injection, Inject 0.5 mL (0.75 mg total) under the skin every 7 (seven) days. (Patient not taking: Reported on 12/12/2020 ), Disp: 2 pen, Rfl: 0 ??? levothyroxine (SYNTHROID, LEVOTHROID) 100 mcg tablet, Take 1 tablet (100 mcg total) by mouth daily., Disp: 90 tablet, Rfl: 3 Past Medical History: Diagnosis Date ??? Apnea [...] Master's degree (e.g., MA, MS, Martin, MEd, IMMUNOLOGY TEACHER, CAYDEN) Occupational History Employer: RETIRED Tobacco Use ??? Smoking status: Former Smoker Packs/day: 2.00 Years: 0.00 Pack years: 0.00 Types: Cigarettes, Pipe Start date: 07/13/1957 Quit date: 1979 Years since quittin.3 ??? Smokeless tobacco: Never Used Substance and Sexual Activity ??? Alcohol use: No ??? Drug use: Never ??? Sexual activity: Defer Other Topics Concern ??? Not on file Social History Narrative ??? Not on file Social Determinants of Health Financial Resource Strain: ??? Difficulty of Paying Living Expenses: Food Insecurity: ??? Worried About Running Out of Food in the Last Year: ??? Ran Out of Food in the Last Year: Transportation Needs: ??? Lack of Transportation (Medical): ??? Lack of Transportation (Non-Medical): Physical Activity: Unknown ??? Days of Exercise per Week: 0 days ??? Minutes of Exercise per Session: Not on file Stress: Stress Concern Present ??? Feeling of Stress : To some extent Social Connections: Moderately Isolated ??? Frequency of Communication with Friends and Family: Not on file ??? Frequency of Social Gatherings with Friends and Family: More than three times a week ??? Attends Mormonism Services: Never ??? Active Member of Clubs or Organizations: No ??? Attends Club or Organization Meetings: Never ??? Marital Status: Intimate Partner Violence: Not At Risk ??? Fear of Current or Ex-Partner: No ??? Emotionally Abused: No ??? Physically Abused: No ??? Sexually Abused: No Respiratory: Positive for dyspnea. Vitals: 01/30/21 1406 01/30/21 1410 BP: 143/68 135/55 BP Location: Right arm Right arm Patient Position: Sitting Sitting Cuff Size: Regular Regular Pulse: (!) 52 (!) 50 Resp: 18 Temp: 37.2 ??C TempSrc: Temporal SpO2: 96% 95% Weight: 100 kg Height: 189.5 cm Constitutional Appearance: He is well-developed. HENT [...] and symmetric. Jonnathan was seen today for shortness of breath. 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 Patient is 75 years old male with complicated past medical history who presented today to the clinicwith dyspnea. We discussed that his shortness of breath is multi factorial, could be due to acute on chronic congestive heart failure, acute asthma exacerbation, large to moderate bilateral pleural effusion, and in addition to that he is deconditioning. He was recently in the ER, Torsemide dose was increased from 40-60 and that had helped his fluid retention/congestive heart failure significantly. We discussed that he will increase Toresmide to 60 forthe next 5 days or until his weight back to baseline at 209. We discuss that he needs to contact hiscardiologist and get an appointment soon. He also has diffuse wheezing on his physical exam which indicates his asthma is not under control especially that his noncompliance with his medication. I advised him to use albuterol q.4-6 hours untilI seen next week. I stressed that he needs to take his Symbicort inhaler daily to avoid asthma exacerbation. Regarding Pleuarl fusion, I reviewed his recent MRCP done on 01/19/2021. It shows large pleural fusion on the right side and moderate on the left side. Seems that the effusion has been progressively getting worse. I called his automotive engineer office- Dr. Sims to get his recommendation regarding worsening of his Pleural effusion. He also noted that his TSH was high at 10.0. Levothyroxine dose adjusted from 75 mCg to 100 micro g daily. I would like to get his kidney function test as well as monitor his hemoglobin. We discussed with the patient and his if any red flag signs or symptoms, the need to proceed tothe ER. documented in this encounter Plan of Treatment [...] eGFR-Black/Afri 47 (L) >=60 01/30/2021 [place] mL/min/BSA 6:34 PM CDT Comment: ----ADDITIONAL INFORMATION---- Estimated GFR calculated using the 2009 CKD_EPI creatinine equation. eGFR Non-Black/ 41 (L) >=60 mL/min/BSA 01/30/2021 6:34 PM CDT [place] [place] Comment: ----ADDITIONAL INFORMATION---- Estimated GFR calculated using [...] Address City/State/ZIP Code Phon e Number [facility] [address] [place] [address] [facility] [place] [address] System in [place] [address] (ABNORMAL) CBC with Differential, Blood (01/30/2021 2:57 PM CDT) [facility] Method Time Signature Hemoglobin 10.7 (L) [...] Organization Address City/State/ZIP Code Phon e Number [place] [address] [place] [address] [facility] [address] [place] [address] System [address] documented in this encounter Visit Diagnoses Diagnosis Failure Heart (HCC) - Primary Anemia Acute On Chronic Systolic (Congestive) H eart Failure (HCC) Atherosclerotic Heart Disease [place] Cor onary Artery With Other Forms Angina Pectoris (Angina Equivalent) (HCC) Effusion Pleural Asthma Exacerbation (HCC) Diabetes Mellitus Type 2 Hyperglycemia ( [facility]) Hyperlipidemia Pancreatitis Chronic Recurrent (HCC) Hypothyroidism Shortness Of Breath documented in this encounter Additional Health Concerns Assessment Noted Time PHQ-9 Depression Total Score: 18 04/28/2018 11:27 AM C DT documented as of this encounter Care Teams Tableau Analyst Relationship Specialty Start Date End Date Shayla Alford D.O. PCP - General Internal Medicine 05/22/[address] [phone] documented as of this encounter
--- OUTSIDE RECORDS SUMMARY | 2022-05-21 11:22 | XMS_ITS | Encounter Summary ---
:1945 Author Organization [facility] Address [address] [place] [address] Care Team Providers Name Role Phone Shayla Alford D.O. Primary Care Provider Reason for Referral Outpatient (Routine) - Closed Specialty Diagnoses / Procedures Referred By Contact Refer red To Contact Community Internal Diagnoses Effusion [facility]ural [facility] Tulio Mcguire [address] [place] [phone] Referral ID Status Reason Start Date Expiration Date Visits Requ ested Visits Authorized [id number] Closed 02/13/2021 02/13/2022 12 12 Outpatient (Routine) - Closed Specialty Diagnoses / Procedures Referred By Contact Refer anna To Contact Nephrology and Diagnoses Diabetes Mellitus Type 2 With Diabetic Chronic Kidney Disease Hyperglycemic (HCC) Chronic Kidney Disease (CKD), Stage 3b Glomerular Filtration Rate (GFR) 30 To 44 (HCC) Anemia In Chronic Kidney Disease [facility] Hypertension Tulio Mgcuire [address] [place] [phone] Referral ID Status Reason Start Date Expiration Date Visits Requ ested Visits Authorized [id number] Closed 02/13/2021 02/13/2022 1 1 Reason for Visit Reason Comments Fatigue Leg Swelling Appointment Request (Routine) - Closed Specialty Diagnoses / Procedures Referred By Contact Refer red To Contact Community Internal Medicine Referral ID Status Reason Start Date Expiration Date Visits Requ ested Visits Authorized [id number] Closed 01/30/2021 01/30/2022 1 1 Encounter Details Date Type Department Care Team Description 02/13/2021 Office Visit Department of [facility] Hyperlipide peter (Primary Dx); Internal Medicine Shayla larry D. O. Stroke (HCC); [place], [place] [address] Hypertension Essential Primary; [address] [place], [place] Diabetes Mellitus Type 2 Wit h Diabetic Chronic Kidney Disease Hyperglycemic ([facility]); [place] [address] Chronic Kidney Disease (CKD), Stage 3b G lomerular Filtration Rate (GFR) 30 To 44 ([facility]); [phone] Anemia In Chronic Kidney Dis ease; Effusion Pleural; [phone] Hypothyroidism; (Fax) Asthma Extrinsi c Moderate ([facility]); Chronic Systoli c (Congestive) Heart Failure ([facility]) Social History Tobacco Use Types Packs/Day Years [...] do you attend sabianism or Never 2021 orthodoxy services? Do you belong to any clubs [...] have completed or the highest Martin, MEd, RESTORATIVE ART EMBALMER, [place]) degree you have received? Sex Assigned at Date Recorded Male 05/21/2018 2:34 PM CDT documented as of this encounter Last Filed Vital Signs Vital Sign Reading Time Taken Comments Blood Pressure 131/60 02/13/2021 8:16 AM CDT Pulse 44 02/13/2021 8:16 AM CDT Temperature 36.6 ??C (97.9 ??F) 02/13/2021 8:16 AM CDT Respiratory Rate 18 02/13/2021 8:16 AM CDT Oxygen Saturation 98% 02/13/2021 8:16 AM CDT Inhaled Oxygen Concentration - - Weight 97.8 kg (215 lb 9.8 oz) 02/13/2021 8:16 AM CDT Height 188 cm (6' 2.02) 02/13/2021 8:16 AM CDT Body Mass Index 27.67 02/13/2021 8:16 AM CDT documented in this encounter Patient Instructions Patient InstructionsShayla Alford D.O. - 02/13/2021 8:30 AM CDT Items to address 1. 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 Low heart rate and fatigue and weakness , already decreased metoprolol 3. Chronic kidney disease and anemia documented in this encounter Progress Notes Shayla Alford D.O. - 02/13/2021 8:30 AM CDT SUBJECTIVE CHIEF COMPLAINT / REASON FOR VISIT Jonnathan Costa is a 75 y.o. male who presents for evaluation of Fatigue and Leg Swelling. HISTORY OF PRESENT ILLNESS Jonnathan Costa is a pleasant 75-year-old male with past medical history significant for CKD stage 3, diabetes type 2 with hyperglycemia, systolic congestive heart failure, and pleural effusion presents today for follow-up on ongoing symptoms of fatigue, leg swelling, and dyspnea. In regards to type 2 diabetes, the patient has been following at the CT with endocrinology. Patient's hemoglobin A1c has dropped to 7.9. He will continue taking Lantus 30 units at bedtime, NovoLog 11 units subQ t.i.d. he does have a [employer] Sofya system which has allowed better control of blood glucose especially, with the patient's variations in his blood sugar readings. blood pressure has been within good control, 131/80. Currently, on Imdur 60 mg daily, and vssdwpmett47 mg daily. As well as, hydralazine 25 mg every 8 hours and torsemide 40 mg daily. Labs are stable,with normal sodium potassium and stable kidney function. Due to, concern dizziness, we discussed decreasing the metoprolol dose to 25 mg daily son 50 mg daily. In addition, the patient has been experiencing some bradycardia and increased fatigue. We would like him to discuss with Cardiology whether not amiodarone can be discontinued. The patient's TSH was elevated on our last check. At 10.3 although improved from previous at 19. Currently on statin therapy with atorvastatin 80 mg daily. Last lipid panel, 11/17/2020 with LDL of 66 and a total cholesterol of 118. Denies any myalgias or side effects statin therapy, will continue on the current dose. In regards to, CKD stage 3, we continue to abstain from NSAIDs and renally dose medications. And avoid any nephrotoxins. Continue with optimal diabetic control. In regards to congestive heart failure, the last ejection fraction was 50%. On abdominal MR, was found to have large pleural effusions. Therefore, we discussed obtaining repeat chest x-ray. The patient, received as additional diuresis through [facility]. Jonnathan Costa has, history of chronic pancreatitis. Due to increased fatigue and weight loss. An MRCP was obtained. Redemonstration of findings of chronic pancreatitis, with a large presumed intraductal stone within the pancreatic head. Overall findings are similar as on the 10/11/2019 CT.No definite pancreatic mass identified, though evaluation is limited without IV contrast. And large right and moderate left pleural effusions. The following portions of the patient's history were reviewed and updated as appropriate: allergies,current medications, family history, medical history, social history, surgical history and problem list. REVIEW OF SYSTEMS A ten point ROS is otherwise negative OBJECTIVE BP 131/60 (BP Location: Right arm, Patient Position: Sitting, Cuff Size: Regular) Pulse (!) 44 Temp 36.6 ??C (Temporal) Resp 18 Ht 188 cm Wt 97.8 kg SpO2 98% BMI 27.67 kg/m?? PHYSICAL EXAM General: Patient alert and oriented, appearing in no acute distress. Well groomed and dressed appropriately. Head: Normocephalic, atraumatic. Eyes: Sclerae clear without injection. Conjunctivae without drainage, erythema or matting. Ears/Nose/Throat: External ear canals patent. TMs pearly pena bilaterally. Neck: Supple without lymphadenopathy. Trachea midline. Respiratory: Diminished breath sounds right lower lobe no wheezes noted. No cough on exam today. Respirations are easy and unlabored. Cardiac: S1 and S2 present with regular rate and rhythm. No murmurs or S3, S4 auscultated. Musculoskeletal: Gait normal. Normal movement of all extremities. 2+ pitting edema Neurologic: Alert and Oriented x3. Responds appropriately to questions. Follows commands without difficulty. Pupils equal and reactive to light. Cranial nerves II through XII grossly intact. EOMs intact. No unilateral or focal weakness, no involuntary movements. Adequate coordination. Skin: Warm and dry. Intact and without rashes on visible areas. ASSESSMENT / PLAN #1 Hyperlipidemia Currently on statin therapy with atorvastatin 80 mg daily. Last lipid panel, 11/17/2020 with LDL of66 and a total cholesterol of 118. Denies any myalgias or side effects statin therapy, will continueon the current dose. In regards to, CKD stage 3, we continue to abstain from NSAIDs and renally dose medications. And avoid any nephrotoxins. Continue with optimal diabetic control. #2 Stroke (HCC) No new focal deficit. #3 Hypertension Essential Primary blood pressure has been within good control, 131/80. Currently, on Imdur 60 mg daily, and vcmqoflfrc31 mg daily. As well as, hydralazine 25 mg every 8 hours and torsemide 40 mg daily. Labs are stable,with normal sodium potassium and stable kidney function. Due to, concern dizziness, we discussed decreasing the metoprolol dose to 25 mg daily son 50 mg daily. In addition, the patient has been experiencing some bradycardia and increased fatigue. We would like him to discuss with Cardiology whether not amiodarone can be discontinued. The patient's TSH was elevated on our last check. At 10.3 although improved from previous at 19. #4 Diabetes Mellitus Type 2 With Diabetic Chronic Kidney Disease Hyperglycemic (HCC) In regards to type 2 diabetes, the patient has been following at the CT with endocrinology. Patient's hemoglobin A1c has dropped to 7.9. He will continue taking Lantus 30 units at bedtime, NovoLog 11 units subQ t.i.d. he does have a [employer] Sofya system which has allowed better control of blood glucose especially, with the patient's variations in his blood sugar readings. #5 Chronic Kidney Disease (CKD), Stage 3b Glomerular Filtration Rate (GFR) 30 To 44 (HCC) #6 Anemia In Chronic Kidney Disease Hemoglobin stable at 10.6 no evidence of hematochezia or melena. #7 Effusion Pleural MR the abdomen obtained to rule out pancreatic cancer showed large pleural effusion, repeat x-ray will be ordered. Dyspnea is stable and patient responded to diuresis. Complicating history, is diagnosis of asthma. Currently on albuterol and Symbicort. Pulmonary consult placed. - Pulmonary Medicine - General consult (clinic); Future; Expected date: 02/14/2021 (After tests) - DX Chest AP or PA and Lateral 2 Views; Future; Expected date: 02/13/2021 (Before next visit) #8 Hypothyroidism Continue with 100 mcg of levothyroxine. 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 #10 Chronic Systolic (Congestive) Heart Failure (HCC) In regards to congestive heart failure, the last ejection fraction was 50%. On abdominal MR, was found to have large pleural effusions. Therefore, we discussed obtaining repeat chest x-ray. The patient, received as additional diuresis through [facility]. Other orders - Hemoglobin A1c; Future; Expected date: 02/13/2021 - Basic Metabolic Panel; Future; Expected date: 02/13/2021 (Before next visit) - Nephrology and Hypertension - Chronic kidney disease consult (clinic); Future; Expected date: 02/14/2021 (After tests) - Community Internal Medicine office visit (clinic); Standing Symptoms: if symptoms are getting worse or patient develops fever/chills or new symptoms: advise patient to come back and see a provider immediately. PATIENT EDUCATION Patient Education: Ready to learn, no apparent learning barriers were identified; learning preferences include listening. Explained diagnosis and treatment plan; patient expressed understanding of the content. Electronically signed by: Shayla Alford D.O. 02/19/21 1:04 PM CDT Time spent 37 minutes documented in this encounter Plan of Treatment Scheduled Referrals Name Type Priority Associated Diagnoses [facility] and Outpatient Routine Diabetes Mellitus Expected : Hypertension - Referral Type 2 With Diabetic 02/14, Chronic kidney Chronic Kidney Expires: disease consult Disease 02/14/2024 (clinic) Hyperglycemic (H CC) Chronic Kidney Disease (CKD), Stage 3b Glomerular Filtration Rate (GFR) 30 To 44 ( HCC) Anemia In Chronic Kidney Disease Community Internal Outpatient Routine every 3 m [facility] starting 02/13/2021 unti l 02/14/2024 documented as of this encounter Results (ABNORMAL) [...] eGFR-Black/Afri 37 (L) >=60 02/13/2021 [place] mL/min/BSA 10:43 AM CDT Comment: ----ADDITIONAL INFORMATION---- Estimated GFR calculated using the 2009 CKD_EPI creatinine equation. eGFR Non-Black/ 32 (L) >=60 mL/min/BSA 02/13/2021 10:43 AM CDT [place] Comment: ----ADDITIONAL INFORMATION---- Estimated GFR calculated using [...] Organization Address City/State/ZIP Code Phon e Number [facility]- [address] [place] [address] [place] [address] System in [place] [address] (ABNORMAL) Hemoglobin A1c (02/13/2021 10:00 [...] Organization Address City/State/ZIP Code Phon e Number [facility]- [address] [place] [address] [facility] [place] [address] System in [place] [address] DX Chest AP or [...] scarring. Left basilar opacities are resolved. Shayla [facility]AG[facility] PROC EDURES documented in this encounter Visit Diagnoses Diagnosis Hyperlipidemia - Primary Stroke (HCC) Hypertension Essential Primary Diabetes Mellitus Type 2 With Diabetic C hronic Kidney Disease Hyperglycemic (HCC) Chronic Kidney Disease (CKD), Stage 3b G lomerular Filtration Rate (GFR) 30 To 44 (HCC) Anemia In Chronic Kidney Disease Effusion Pleural Hypothyroidism Asthma Extrinsic Moderate (HCC) Chronic Systolic (Congestive) Heart Fail ure (HCC) Effusion Pleural documented in this encounter Additional Health Concerns Assessment Noted Time PHQ-9 Depression Total Score: 18 04/28/2018 11:27 AM C DT documented as of this encounter Care Teams Residential Solar Consultant Relationship Specialty Start Date End Date Shayla Alford D.O. PCP - General Internal Medicine 05/22/[address] [phone] documented as of this encounter
--- OUTSIDE RECORDS SUMMARY | 2022-05-21 11:22 | XMS_ITS | Encounter Summary ---
:1945 Author Organization [facility] Address [address] [place] [address] Care Team Providers Name Role Phone Shayla Alford D.O. Primary Care Provider [phone] Encounter Details Date Type Department Care Team Description 02/01/2021 Clinical Communication Department of Internal Neto Wong, Medicine in [place] [address] [place] [phone] Social History Tobacco Use Types Packs/Day [...] do you attend worship or Never 2021 sabianism services? Do you [...] have completed or the highest Martin, MEd, CORPORATE LOGISTICS MANAGER, [place]) degree you have received? Sex Assigned at Date Recorded Male 05/21/2018 2:34 PM CDT documented as of this encounter Miscellaneous Notes Telephone Encounter - Yannick Raza L.P.N. - 02/01/2021 11:15 AM CDT Name of person contacted: Patient Relationship to patient: Not applicable Call back number: As listed in his chart Mobile Tester: Not applicable Information provided: Aware of lab results per DR. Wong councilperson/patient received and understood education/information provided: Yes councilperson/patient agreed to the Plan of Care: Yes Telephone Encounter - Yannick Raza L.P.NMauro - 02/01/2021 11:14 AM CDT ----- Message from Augustin Wong M.D. sent at 02/01/2021 10:54 AM CDT ----- CBC and CMP are stable. documented in this encounter Plan of Treatment Not on filedocumented as of this encounter Visit Diagnoses Not on filedocumented in this encounter Additional Health Concerns Assessment Noted Time PHQ-9 Depression Total Score: 18 04/28/2018 11:27 AM C DT documented as of this encounter Care Teams Learning Technologist Relationship Specialty Start Date End Date Shayla Alford D.O. PCP - General Internal Medicine 05/22/[address] [phone] documented as of this encounter
--- OUTSIDE RECORDS SUMMARY | 2022-05-21 11:22 | XMS_ITS | Encounter Summary ---
:1945 Author Organization [facility] Address [address] [place] [address] Care Team Providers Name Role Phone Shayla Alford D.O. Primary Care Provider [phone] Encounter Details Date Type Department Care Team Description 01/30/2021 Clinical Communication Department of Internal Andrei Dejesus Medicine in [place], [place], [place] [address] [place] [phone] Social History Tobacco Use Types Packs/Day Years [...] or relatives? How often do you attend gnosticist or Never 2021 restorationism services? Do you belong to any clubs or No 10/09/2021 organizations such as gnosticist groups, unions, fraternal or athletic groups, or [...] have completed or the highest Martin, MEd, PORTABLE TRACK CREW CHIEF, [place]) degree you have received? Sex Assigned at Date Recorded Male 05/21/2018 2:34 PM CDT documented as of this encounter Miscellaneous Notes Telephone Encounter - Ayala Hernandez RJustina - 01/30/2021 9:26 AM CDT SUBJECTIVE CHIEF COMPLAINT / REASON FOR CALL Shortness of breath, weakness, balance ASSESSMENT Patient states he has been having difficulty breathing, weakness, and balance issues that have been going on for about a month. PLAN He made an appointment to see a [place] provider today and will then follow up with on 02/13. Disposition/Recommendation: self-care is appropriate at this time, patient encouraged to call back with questions and to ensure he goes to his appointment today to address his symptoms and concerns. Information/Education: patient/caller able to teach back. Caller agreeable to plan of care: yes. The following references were used: nursing clinical judgement. Telephone Encounter - Debbie Colon - 01/30/2021 8:58 AM CDT Reason for Communication: Patient called ot schedule appt with Dr. Reid today. He states he has been having difficulty breathing for about a month. He states that he is not dizzy or faint feeling hejust has no energy and is very tired. Patient was scheduled with Dr. Reid at her first available which is 02/13 at 8:30. He Stated he thought he could live until then. Patient was transferred to the Emergent . Does Dr. Reid want to see patient prior to 02/13? Current Can Nursing/Provider leave a detailed message?: Yes Did the patient refuse triage through Nurse line? (for symptom based concerns): no Action Needed: Please call patient back. Name of Medication (if relevant): Thank you. documented in this encounter Plan of Treatment Not on filedocumented as of this encounter Visit Diagnoses Not on filedocumented in this encounter Additional Health Concerns Assessment Noted Time PHQ-9 Depression Total Score: 18 04/28/2018 11:27 AM C DT documented as of this encounter Care Teams Hairpiece Stylist Relationship Specialty Start Date End Date Shayla Alford D.O. PCP - General Internal Medicine 05/22/[address] [phone] documented as of this encounter
--- OUTSIDE RECORDS SUMMARY | 2022-05-21 11:22 | XMS_ITS | Encounter Summary ---
:1945 Author Organization [facility] Address [address] [place] [address] Care Team Providers Name Role Phone Shayla Alford D.O. Primary Care Provider [phone] Reason for Referral MRI/CAT/PET Scan (Routine) - Closed Specialty Diagnoses / Procedures Referred By Contact Refer red To Contact Radiology Diagnoses Pancreatitis Chronic (HCC) Emil Zurita M.D. [facility] Procedures MR Abdomen MRCP without IV Contrast [address] [place], [place] [phone] Referral ID Status Reason Start Date Expiration Date Visits Requ ested Visits Authorized [id number] Closed 12/07/2020 12/07/2021 1 1 Reason for Visit MRI/CAT/PET Scan (Routine) - Closed Specialty Diagnoses / Procedures Referred By Contact Refer red To Contact Radiology Diagnoses Pancreatitis Chronic (HCC) Emil Zurita M.D. [facility] Procedures MR Abdomen MRCP without IV Contrast [address] [place], [place] [phone] Referral ID Status Reason Start Date Expiration Date Visits Requ ested Visits Authorized [id number] Closed 12/07/2020 12/07/2021 1 1 Encounter Details Date Type Department Care Team Description 01/19/2021 Hospital Encounter Department of Camilla Zurita Chronic Radiology, Leanne Stein M.D. ([facility]) Building, in [address] [place] [address] [place] [phone] [place], [place] [phone] (Work) [phone] Social History Tobacco Use Types Packs/Day Years [...] do you attend lutheran or Never 2021 mandaen services? Do you [...] have completed or the highest Martin, MEd, THERAPEUTIC ACTIVITIES SERVICES WORKER, [place]) degree you have received? Sex [...] by mouth tabletIndications: daily. 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), Diabetes Mellitus Type [address] ([facility]), Hypertension Essential Primary levothyroxine (SYNTHROID, Take [...] encounter Miscellaneous Notes Result Encounter Note - Emil Zurita M.D. - 01/30/2021 5:16 PM CDT MRI reviewed. Stable changes of chronic pancreatitis [...] Procedure Name Priority Date/Time Associated Comments Diagnosis MR ABDOMEN MRCP RAD - Routine 01/19/2021 5:41 Pancreatitis Results for this WITHOUT IV (most inpatients PM CDT Chronic (HCC) procedure are in CONTRAST and all the results outpatients) section. documented in this encounter Results MR Abdomen MRCP without IV Contrast (01/19/2021 5:41 PM CDT) Anatomical Region Laterality Modality Abdomen, Abdominal RST LOS, Abdominal ARZ LOS, N/A Magnetic Resonance Abdominal FLA LOS Specimen (Source) Anatomical Collection Method Collection Time Re ceived Time Location / / Volume Laterality 01/22/2021 8:26 AM CDT Impressions 01/22/2021 9:00 AM CDT 1. Redemonstration of findings of chronic pancreatitis, with a large presumed intraductal stone within the pancreatic head. Overall findings are similar as on the 10/11/2019 CT. 2. No definite pancreatic mass identifie d, though evaluation is limited without IV contrast. 3. Large right and moderate left pleural effusions. Narrative 01/22/2021 9:00 AM CDT EXAM: ??MR ABDOMEN MRCP WITHOUT IV CONTRAST 3D maximum intensity projections/volume renderings were created on an independent workstation as ordered by rachel feng treating provider and reviewed by the radiologist for biliary and pancreatic d uct visualization. COMPARISON: ??CT abdomen/pelvis 10/11/19 21. FINDINGS: ??Again seen are findings of c hronic pancreatitis, with diffuse pancreatic atrophy, pancreatic ductal di latation, and extensive prominent sidebranches throughout the pancreas. Rachel feng pancreatic duct measures up to approximately 8 mm, unchanged since 09/29. Redemonstration of the large filling defect within the duct in the pa ncreatic head with extension into a few side branches (series 14, image 50), whi ch was shown to be represent a large stone on the comparison CT and is overal l similar in size measuring up to approximately 20 mm. Additional parenchy mal calcifications are not as well appreciated on today's exam. No definite evidence of a mass, though evaluation is limited without IV contrast. No bilia ry ductal dilatation. Normal gallbladder. Bilateral renal cysts, including multipl e hemorrhagic cysts, greatest in the right kidney. Normal noncontrast appeara nce of the liver, spleen, and adrenal glands. A few mildly prominent lymph nod es are likely reactive. Small periapical hernias which contain nonobstructed ivy l (series 4, image 50). Large right and moderate left pleural effusions. Remaind er negative. Emil SALINAS MRI PROCEDURES documented in this encounter Visit Diagnoses Diagnosis Pancreatitis Chronic (HCC) documented in this encounter Additional Health Concerns Assessment Noted Time PHQ-9 Depression Total Score: 18 04/28/2018 11:27 AM C DT documented as of this encounter Care Teams Race Relations Adviser Relationship Specialty Start Date End Date Shayla Alford D.O. PCP - General Internal Medicine 05/22/[address] [phone] documented as of this encounter
--- OUTSIDE RECORDS SUMMARY | 2022-05-21 11:23 | XMS_ITS | Encounter Summary ---
:1945 Author Organization [facility] Address [address] [place] [address] Care Team Providers Name Role Phone Shayla Alford D.O. Primary Care Provider [phone] Reason for Visit Reason Comments Shortness of Breath COVID Nurse Line Encounter Details Date Type Department Care Team Description 12/18/2020 Nurse Triage Department of Internal Milena Mackenzie, Shortness of Breath[facility] [place] [address] [facility] [address] [place] [phone] Social History Tobacco Use Types Packs/Day Years [...] do you attend hinduism or Never 2021 gnosticist services? Do you belong to any clubs [...] have completed or the highest Martin, MEd, LEAN MANUFACTURING ENGINEER, [place]) degree you have received? Sex Assigned at Date Recorded Male 05/21/2018 2:34 PM CDT documented as of this encounter Miscellaneous Notes Telephone Encounter - Milena Mackenzie R.N. - 12/18/2020 9:02 AM CDT COVID-19 Nurse Line Screening ASSESSMENT Region Select appropriate region: : [place] Age Pathway Select approprite pathway: : Adult Have you had close contact* with a person who has a LABORATORY CONFIRMED case of COVID-19 in the past 14 days?: Yes- provide quarantine instructions unless exceptions met. (Continue Screening) In the last 48 hours, [...] testing recommended? : Not recommended to test Patient had an exposure to his granddaughter 10 days ago. He has received both of his SARS vaccinations, last one was 2-17. PLAN Endpoint recommendation: Screening negative, testing not indicated at this time Care Points: -Wash hands frequently with soap and water for at least 20 seconds -If soap and water are not available, use a hand supervisor food checkers and cashiers -Avoid touching your eyes, nose and mouth. [...] provider of any new or worsening symptoms. Education: Patient/caregiver able to teach back Patient agreeable to plan of care: Yes The following references were used: [facility] novel coronavirus (COVID- 19) resources Nursing judgement Telephone Encounter - Milena Mackenzie R.N. - 12/18/2020 8:18 AM CDT Chief Complaint / Reason for Call Patient is a 75 y.o. male calling regarding Shortness of Breath and COVID Nurse Line. Assessment Concern: Patient notes shortness of breath that has worsened over the last 2 weeks. He was recently in the hospital for CHF with a weight loss of 33 lbs. He has noted some ankle and leg swelling with aweight gain of 6 pounds over the last 2 weeks. He reports shortness of breath at rest. He did not sound short of breath on the phone. He is also noting some anxiety over the last 2 days and did not sleep well last night. He is taking his Torsemide. Present for: 2 weeks over the last 2 weeks, gradually progressing, anxiety 2 days Home cares tried: As above Calling to request: An appointment The recommended disposition is See a health care provider within 4 hours. Caller/Patient was warm transferred to the clinic for further assistance. Care Advice Patient/Caregiver understands and will follow care advice?: Yes, able to teach back CALL BACK IF: * You become worse. Reason for Disposition ? ? [1] MILD difficulty breathing (e.g., minimal/no SOB at rest, SOB with walking, pulse <100) AND [2] NEW-onset or WORSE than normal ??? [1] Longstanding difficulty breathing (e.g., CHF, COPD, emphysema) AND [2] WORSE than normal Protocols used: BREATHING [id number] documented in this encounter Plan of Treatment Not on filedocumented as of this encounter Visit Diagnoses Not on filedocumented in this encounter Additional Health Concerns Assessment Noted Time PHQ-9 Depression Total Score: 18 04/28/2018 11:27 AM C DT documented as of this encounter Care Teams Line Haul Truck Driver Relationship Specialty Start Date End Date Shayla Alford D.O. PCP - General Internal Medicine 05/22/20 [address] [place] [phone] documented as of this encounter
--- OUTSIDE RECORDS SUMMARY | 2022-05-21 11:23 | XMS_ITS | Encounter Summary ---
:1945 Author Organization [facility] Address [address] [place] [address] Care Team Providers Name Role Phone Shayla Alford D.O. Primary Care Provider [phone] Encounter Details Date Type Department Care Team Description 11/17/2020 Hospital Encounter Department of Manuel Evans Systolic Laboratory Medicine Pato Barber (Congestive) Heart and Pathology, 200 [facility] Failure (HCC) [facility] [address] [place] [phone] 200 [facility] (Work) [place], [place] [phone] (Fax) [phone] Social History Tobacco Use Types Packs/Day Years [...] do you attend faith or Never 2021 mandaeism services? Do you [...] have completed or the highest Martin, MEd, ACADEMIC DIRECTOR, CAYDEN) degree you have received? Sex [...] daily SYRINGE-NEEDLE,INSULIN,0. 0 5 ML (INSULIN SYRINGE MIS) amiodarone (PACERONE) 200 Take 200 mg by [...] by mouth tabletIndications: daily. 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 Do not crush or chew. polyethylene glycol Take 1 packet (17 g 30 packet 3 021 12/12/2020 (MIRALAX) 17 gram powder total) by mouth packetIndications: daily. Dissolve each Constipation 17 g dose in 240 mLs (8 ounces) of beverage. torsemide (DEMADEX) 20 mg Take 2 tablets [...] Procedure Name Priority Date/Time Associated Comments Diagnosis LIPID PANEL, S Routine 11/17/2020 9:03 Chronic Systolic Result s for this AM CHILDREN'S ENTERTAINER (Congestive) Heart procedure are in Failure (HCC) the results section. NT-PRO B-TYPE Routine 11/17/2020 9:03 Chronic Systolic Results for this NATRIURETIC PEPTIDE AM CHILDREN'S ENTERTAINER (Congestive) Heart pr ocedure are in (BNP), S Failure (HCC) the results section. CBC WITH DIFFERENTIAL, B Routine 11/17/2020 9:03 Chronic Systo lic Results for this AM CHILDREN'S ENTERTAINER (Congestive) Heart procedure are in Failure (HCC) the results section. BUN (BLOOD UREA Routine 11/17/2020 9:03 Chronic Systolic Resul ts for this NITROGEN), S/P AM CHILDREN'S ENTERTAINER (Congestive) Heart procedu re are in Failure (HCC) the results section. ASPARTATE Routine 11/17/2020 9:03 Chronic Systolic Results for this AMINOTRANSFERASE (AST), AM CHILDREN'S ENTERTAINER (Congestive) Hear t procedure are in S/P Failure (HCC) the results section. THYROID-STIMULATING Routine 11/17/2020 9:03 Chronic Systolic R esults for this HORMONE-SENSITIVE AM CHILDREN'S ENTERTAINER (Congestive) Heart proc edure are in (S-TSH) Failure (HCC) the results section. SODIUM, S/P Routine 11/17/2020 9:03 Chronic Systolic Results for this AM CHILDREN'S ENTERTAINER (Congestive) Heart procedure are in Failure (HCC) the results section. POTASSIUM, S/P Routine 11/17/2020 9:03 Chronic Systolic Result s for this AM CHILDREN'S ENTERTAINER (Congestive) Heart procedure are in Failure (HCC) the results section. GLUCOSE, FASTING, S/P Routine 11/17/2020 9:03 Chronic Systolic Results for this AM CHILDREN'S ENTERTAINER (Congestive) Heart procedure are in Failure (HCC) the results section. CREATININE WITH EGFR, Routine 11/17/2020 9:03 Chronic Systolic Results for this S/P AM CHILDREN'S ENTERTAINER (Congestive) Heart procedure are in Failure (HCC) the results section. BICARBONATE, B/S/P Routine 11/17/2020 9:03 Chronic Systolic Re sults for this AM CHILDREN'S ENTERTAINER (Congestive) Heart procedure are in Failure (HCC) the results section. documented in this encounter Results (ABNORMAL) NT-Pro B-Type Natriuretic Peptide (BNP) (11/17/2020 9:03 AM CHILDREN'S ENTERTAINER) athologist Signature NT-Pro BNP 2558 (H) <=119 pg/mL 11/17/2020 DTL 10:08 AM CHILDREN'S ENTERTAINER Comment: NT-proBNP values less than 300 pg/mL [...] age in the absence of renal failure. Specimen Anatomical Collection Method Collection Time Receive d Time (Source) Location / / Volume Laterality Blood (Blood, 11/17/2020 9:03 AM 11/17/19 9:26 Venous) CHILDREN'S ENTERTAINER AM CHILDREN'S ENTERTAINER Manuel Evans M.D. LAB BLOOD ADD-ON Performing Organization Address City/State/ZIP Code Phon e Number [facility] - [address] [place], [place] [address] [facility] [place] [address] Laboratories-[facility] [address] Potassium (11/17/2020 9:03 AM CHILDREN'S ENTERTAINER) athologist Signature Potassium, S 4.3 3.6 - 5.2 11/17/2020 DTL mmol/L 10:08 AM CHILDREN'S ENTERTAINER Specimen Anatomical Collection Method Collection Time Receive d Time (Source) Location / / Volume Laterality Blood (Blood, 11/17/2020 9:03 AM 11/17/19 9:26 Venous) CHILDREN'S ENTERTAINER AM CHILDREN'S ENTERTAINER Manuel Evans M.D. LAB BLOOD ADD-ON Performing Organization Address City/State/[facility] Phon e Number [facility] - [address] [place], [place] [address] [facility] [place] [address] [facility] 200 [facility] Bicarbonate (11/17/2020 9:03 AM CHILDREN'S ENTERTAINER) P athologist Signature Bicarbonate, S 25 22 - 29 11/17/2020 DTL mmol/L 10:08 AM CHILDREN'S ENTERTAINER Specimen Anatomical Collection Method Collection Time Receive d Time (Source) Location / / Volume Laterality Blood (Blood, 11/17/2020 9:03 AM 11/17/19 9:26 Venous) CHILDREN'S ENTERTAINER AM CHILDREN'S ENTERTAINER Manuel Evans M.D. LAB BLOOD ADD-ON Performing Organization Address City/State/[facility] Code Phon e Number [facility] - [address] [place], [place] [address] [place] [address] (ABNORMAL) S-TSH (Thyroid-Stimulating Hormone - Sensitive) (11/17/2020 9:03 AM CHILDREN'S ENTERTAINER) athologist Signature TSH, Sensitive 19.4 (H) 0.3 - 4.2 11/17/2020 DTL mIU/L 10:07 AM CHILDREN'S ENTERTAINER Specimen Anatomical Collection Method Collection Time Receive d Time (Source) Location / / Volume Laterality Blood (Blood, 11/17/2020 9:03 AM 11/17/19 9:26 Venous) CHILDREN'S ENTERTAINER AM CHILDREN'S ENTERTAINER Manuel Evans M.D. LAB BLOOD ADD-ON Performing Organization Address City/State/[facility] Code Phon e Number [facility] - [address] [place], [place] [address] [facility] [place] [address] [address] (ABNORMAL) CBC with Differential, Blood (11/17/2020 9:03 AM CHILDREN'S ENTERTAINER) Patholo gist Method Time Signature Hemoglobin 10.2 (L) 13.2 - 11/17/2020 DTL 16.6 g/dL 9:34 AM CHILDREN'S ENTERTAINER Hematocrit 30.8 (L) 38.3 - 11/17/2020 DTL 48.6 % 9:34 AM CHILDREN'S ENTERTAINER Erythrocytes 3.33 (L) 4.35 - 11/17/2020 DTL 5.65 9:34 AM CHILDREN'S ENTERTAINER x10(12)/L MCV 92.5 78.2 - 11/17/2020 DTL 97.9 fL 9:34 AM CHILDREN'S ENTERTAINER RBC Distrib Width 12.6 11.8 - 11/17/2020 DTL 14.5 % 9:34 AM CHILDREN'S ENTERTAINER Platelet Count 167 135 - 317 11/17/2020 DTL x10(9)/L 9:34 AM CHILDREN'S ENTERTAINER Leukocytes 6.6 3.4 - 9.6 11/17/2020 DTL x10(9)/L 9:34 AM CHILDREN'S ENTERTAINER Neutrophils 4.75 1.56 - 11/17/2020 DTL 6.45 9:34 AM CHILDREN'S ENTERTAINER x10(9)/L Lymphocytes 0.96 0.95 - 11/17/2020 DTL 3.07 9:34 AM CHILDREN'S ENTERTAINER x10(9)/L Monocytes 0.44 0.26 - 11/17/2020 DTL 0.81 9:34 AM CHILDREN'S ENTERTAINER x10(9)/L Eosinophils 0.35 0.03 - 11/17/2020 DTL 0.48 9:34 AM CHILDREN'S ENTERTAINER x10(9)/L Basophils 0.06 0.01 - 11/17/2020 DTL 0.08 9:34 AM CHILDREN'S ENTERTAINER x10(9)/L Specimen Anatomical Collection Method Collection Time Receive d Time (Source) Location / / Volume Laterality Blood (Blood, 11/17/2020 9:03 AM 11/17/19 21 9:26 Venous) CHILDREN'S ENTERTAINER AM CHILDREN'S ENTERTAINER Manuel Evans M.D. LAB BLOOD ADD-ON Performing Organization Address City/State/ZIP Code Phon e Number [facility] - [address] [place], [place] [address] [facility] [place] [address] Laboratories-[facility] [address] (ABNORMAL) Lipid Panel (11/17/2020 9:03 AM CHILDREN'S ENTERTAINER) athologist Signature Cholesterol, 118 mg/dL 11/17/2020 DTL Total 10:07 AM CHILDREN'S ENTERTAINER Comment: ----REFERENCE VALUE---- Desirable: < 200 Borderline high: 200 - 239 High: > or = 240 Triglycerides 90 mg/dL 11/17/2020 10:07 AM CHILDREN'S ENTERTAINER DT L Comment: ----REFERENCE VALUE---- Normal: <150 Borderline high: 150-199 High: 200-499 Very high: > or =500 Cholesterol, HDL, S 34 (L) >=40 mg/dL 11/17/2020 10:07 AM CHILDREN'S ENTERTAINER DTL Calculated LDL 66 mg/dL 11/17/2020 10:07 AM CHILDREN'S ENTERTAINER D TL Comment: ----REFERENCE VALUE---- Desirable: <100 Above Desirable: 100-129 Borderline high: 130-159 High: 160-189 Very high: > or =190 Cholesterol, Non-HDL, Calculated 84 mg/dL 021 10:07 AM CHILDREN'S ENTERTAINER DTL Comment: ----REFERENCE VALUE---- Desirable: <130 Above Desirable: 130-159 Borderline high: 160-189 High: 190-219 Very high: > or =220 Specimen Anatomical Collection Method Collection Time Receive d Time (Source) Location / / Volume Laterality Blood (Blood, 11/17/2020 9:03 AM 11/17/19 9:26 Venous) CHILDREN'S ENTERTAINER AM CHILDREN'S ENTERTAINER Manuel Evans M.D. LAB BLOOD ADD-ON Performing Organization Address City/[facility] Phon e Number [facility] - [address] [place] [address] (ABNORMAL) BUN (Blood Urea Nitrogen) (11/17/2020 9:03 AM CHILDREN'S ENTERTAINER) athologist Signature BUN (Blood Urea 57 (H) 8 - 24 11/17/2020 DTL Nitrogen), S mg/dL 10:08 AM CHILDREN'S ENTERTAINER Specimen Anatomical Collection Method Collection Time Receive d Time (Source) Location / / Volume Laterality Blood (Blood, 11/17/2020 9:03 AM 11/17/19 9:26 Venous) CHILDREN'S ENTERTAINER AM CHILDREN'S ENTERTAINER Manuel Evans M.D. LAB BLOOD ADD-ON Performing Organization Address City/[facility] Phon e Number [facility] - [address] AST (Aspartate Aminotransferase) (11/17/2020 9:03 AM CHILDREN'S ENTERTAINER) [facility] gist Method Time Signature Aspartate 31 8 - 48 11/17/2020 DTL Aminotransferase U/L 10:08 AM CHILDREN'S ENTERTAINER (AST), S Specimen Anatomical Collection Method Collection Time Receive d Time (Source) Location / / Volume Laterality Blood (Blood, 11/17/2020 9:03 AM 11/17/19 9:26 Venous) CHILDREN'S ENTERTAINER AM CHILDREN'S ENTERTAINER Manuel Evans M.D. LAB BLOOD ADD-ON Performing Organization Address City/[facility] Phon e Number [facility] - [address] (ABNORMAL) Creatinine with Estimated GFR (11/17/2020 9:03 AM CHILDREN'S ENTERTAINER) Analysis Performed At [facility] logist Time Signature Creatinine 1.86 (H) 0.74 - 11/17/2020 DTL 1.35 mg/dL 10:07 AM CHILDREN'S ENTERTAINER eGFR-Non 34 (L) >=60 11/17/2020 DTL Black/ mL/min/BSA 10:07 AM CHILDREN'S ENTERTAINER Brazilian Comment: ----ADDITIONAL INFORMATION---- Estimated GFR calculated using the 2009 CKD_EPI creatinine equation. eGFR-Black/ 39 (L) >=60 mL/min/BSA 2020 10:07 AM CHILDREN'S ENTERTAINER DTL Comment: ----ADDITIONAL INFORMATION---- Estimated GFR calculated using the 2009 CKD_EPI creatinine equation. Specimen Anatomical Collection Method Collection Time Receive d Time (Source) Location / / Volume Laterality Blood (Blood, 11/17/2020 9:03 AM 11/17/19 9:26 Venous) CHILDREN'S ENTERTAINER AM CHILDREN'S ENTERTAINER Manuel Evans M.D. LAB BLOOD ADD-ON Performing Organization Address City/State/[facility] Code Phon e Number [facility] - [address] D[place] [phone] [address] (ABNORMAL) Glucose, Fasting (11/17/2020 9:03 AM CHILDREN'S ENTERTAINER) P athologist Signature Glucose, P 219 (H) 70 - 100 11/17/2020 DTL mg/dL 9:56 AM CHILDREN'S ENTERTAINER Last Intake 1 hr 11/17/2020 DTL 9:26 AM CHILDREN'S ENTERTAINER Specimen Anatomical Collection Method Collection Time Receive d Time (Source) Location / / Volume Laterality Blood (Blood, 11/17/2020 9:03 AM 11/17/19 9:26 Venous) CHILDREN'S ENTERTAINER AM CHILDREN'S ENTERTAINER Manuel Evans M.D. LAB BLOOD NON ADD-ON Performing Organization Address [facility] Phon e Number [facility] - [address] [place] [address] Sodium (11/17/2020 9:03 AM CHILDREN'S ENTERTAINER) P athologist Signature Sodium, S 140 135 - 145 11/17/2020 DTL mmol/L 10:08 AM CHILDREN'S ENTERTAINER Specimen Anatomical Collection Method Collection Time Receive d Time (Source) Location / / Volume Laterality Blood (Blood, 11/17/2020 9:03 AM 11/17/19 9:26 Venous) CHILDREN'S ENTERTAINER AM CHILDREN'S ENTERTAINER Manuel Evans M.D. LAB BLOOD ADD-ON Performing Organization Address City/[facility] Phon e Number [facility] - [id number] [place] [address] documented in this encounter Visit Diagnoses Diagnosis Chronic Systolic (Congestive) Heart Fail ure (HCC) documented in this encounter Additional Health Concerns Assessment Noted Time PHQ-9 Depression Total Score: 18 04/28/2018 11:27 AM C DT documented as of this encounter Care Teams Centerless Grinder Set Up Operator Relationship Specialty Start Date End Date Shayla Alford D.O. PCP - General Internal Medicine 05/22/20 [address] [place] [phone] documented as of this encounter
--- OUTSIDE RECORDS SUMMARY | 2022-05-21 11:23 | XMS_ITS | Encounter Summary ---
:1945 Author Organization [facility] Address [address] [place] [address] Care Team Providers Name Role Phone Shayla Alford D.O. Primary Care Provider [phone] Encounter Details Date Type Department Care Team Description 11/23/2020 Orders Only Department of Internal [place] pothyroidism (Primary Medicine in [place], , Coleman Mcguire Dx) [place] [address] [place] [phone] Social History Tobacco Use Types Packs/Day [...] do you attend voodoo or Never 2021 mu-ism services? Do you [...] have completed or the highest Martin, MEd, INTERNAL SALESPERSON, CAYDEN) degree you have received? Sex Assigned at Date Recorded Male 05/21/2018 2:34 PM CDT documented as of this encounter Plan of Treatment Not on filedocumented as of this encounter Results T4 (Thyroxine), Free (02/20/2021 11:09 AM CDT) P athologist Signature T4 (Thyroxine), 1.3 0.9 - 1.7 02/20/2021 [place] Free, P ng/dL 11:51 AM CDT Comment: Biotin has been identified by the capri enriquez as a potential interfering substance. ??Higher concentr ations of biotin may be found in multivitamins, hair/nail supple ments, and workout supplements. ??If the result does not [facility] clinical observations, repeat testing after patient refrains fr om the use of supplements for at least 12 hours. Specimen Anatomical Collection Method Collection Time Receive d Time (Source) Location / / Volume Laterality Blood (Blood, 02/20/2021 11:09 02/20/2021 Venous) AM CDT 11:15 AM CDT Shayla Alford D.O. LAB BLOOD ADD-ON Performing Organization Address City/State/ZIP Code Phon e Number [facility]- [address] [place] [phone] [place] [address] System in [place] [address] (ABNORMAL) T3 (Triiodothyronine), Free (02/20/2021 11:09 AM CDT) P athologist Signature T3 2.5 (L) 2.8 - 4.4 02/20/2021 [facility] (Triiodothyron pg/mL 9:56 PM CDT ine), Free, S Specimen Anatomical Collection Method Collection Time Receive d Time (Source) Location / / Volume Laterality Blood (Blood, 02/20/2021 11:09 02/20/2021 9:08 Venous) AM CDT PM CDT Shayla Alford D.O. LAB BLOOD ADD-ON Performing Organization Address City/State/ZIP Code Phon e Number [facility] [address] [place], [place] [address] [facility] [place] [address] Laboratory Medicine and Pathology [address] [place] documented in this encounter Visit Diagnoses Diagnosis Hypothyroidism - Primary documented in this encounter Additional Health Concerns Assessment Noted Time PHQ-9 Depression Total Score: 18 04/28/2018 11:27 AM C DT documented as of this encounter Care Teams Sagger Soak Relationship Specialty Start Date End Date Shayla Alford D.O. PCP - General Internal Medicine 05/22/202199 [place] [phone] documented as of this encounter
--- OUTSIDE RECORDS SUMMARY | 2022-05-21 11:23 | XMS_ITS | Encounter Summary ---
:1945 Author Organization [facility] Address [address] [place] [address] Care Team Providers Name Role Phone Shayla Alford D.O. Primary Care Provider [phone] Reason for Referral Outpatient (Routine) - Closed Specialty Diagnoses / Procedures Referred By Contact Refer red To Contact Diagnoses Chronic Systolic (Congestive) Heart Failure (HCC) Manuel Evans M.D. [facility] Procedures ECG Heart rhythm monitor (Holter) [address] [place] [address] Referral ID Status Reason Start Date Expiration Date Visits Requ ested Visits Authorized [id number] Closed 11/17/2020 11/17/2021 1 1 P FEEDER Reason for Visit Outpatient (Routine) - Closed Specialty Diagnoses / Procedures Referred By Contact Refer red To Contact Diagnoses Chronic Systolic (Congestive) Heart Failure (HCC) Manuel Evans M.D. [facility] Procedures ECG Heart rhythm monitor (Holter) [address] [place] [address] Referral ID Status Reason Start Date Expiration Date Visits Requ ested Visits Authorized [id number] Closed 11/17/2020 11/17/2021 1 1 Encounter Details Date Type Department Care Team Description 11/17/2020 Hospital Encounter Department of Jigar Evans Systolic Cardiovascular Manuel Barber M.D. (Congestive) Heart Diseases in [place], [facility] [address] Failure (HCC) [place], [place] [address] [address] [place], [place] [phone] [address] (Work) [phone] Social History Tobacco Use Types Packs/Day Years [...] do you attend episcopal or Never 2021 yazdanism services? Do you [...] have completed or the highest Martin, MEd, GIS PROFESSOR, [place]) degree you have received? Sex [...] by mouth tabletIndications: daily. 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 lisinopriL Take 1 tablet by 0 11/15/2008 [...] Take 1 tablet (100 30 tablet 1 08/04/202002/22/2021 mg tablet mg total) by mouth at bedtime as needed for sleep. documented as of this encounter Plan of Treatment Not on filedocumented as of this encounter Procedures Procedure Name Priority Date/Time Associated Diagnosis Comme nts HOLTER MONITOR - IN Routine 11/17/2020 3:20 PM Chronic Systoli c Results for this CLINIC TRAIN ENGINEER STRIP FEEDER (Congestive) Heart procedu re are in Failure (HCC) the results section. documented in this encounter Results HOLTER MONITOR - IN CLINIC TRAIN ENGINEER (11/17/2020 3:20 PM STRIP FEEDER) [facility] gist Method Time Signature Pause Longest 2.14 s HOLTER SENTINEL VE Max Per [id number] HOLTER Hour Time SENTINEL VE Total Beats 256 count HOLTER SENTINEL SVE Max Per 19 count HOLTER Hour SENTINEL Mean Heart 56 bpm HOLTER Rate SENTINEL Max Heart Rate [id number] HOLTER Time SENTINEL Max Heart Rate 83 bpm HOLTER SENTINEL SVE Percent 0 percent HOLTER Beats SENTINEL SVT Runs 0 count HOLTER SENTINEL Analysis Date 20,210,222 HOLTER SENTINEL Holter Pauses 40 count HOLTER SENTINEL Bradycardia 0 count HOLTER Runs SENTINEL Min Heart Rate 47 bpm HOLTER SENTINEL Tachycardia 0 count HOLTER Runs SENTINEL VT Runs 0 count HOLTER SENTINEL Recording Date [id number] HOLTER SENTINEL VE Percent 0 percent HOLTER Beats SENTINEL AF Count 0 count HOLTER SENTINEL SVE Max Per [id number] HOLTER Hour Time SENTINEL Min Heart Rate [id number] HOLTER Time SENTINEL SVE Total 118 count HOLTER Beats SENTINEL VE Max Per 28 count HOLTER Hour SENTINEL Specimen (Source) Anatomical Collection Method Collection Time Re ceived Time Location / / Volume Laterality 11/17/2020 3:18 PM STRIP FEEDER Narrative This result has an attachment that [...] as of this encounter Care Teams Industrial Hygienist Relationship Specialty Start Date End Date Shayla Alford D.O. PCP - General Internal Medicine 05/22/20 [address], [place] [address] documented as of this encounter
--- OUTSIDE RECORDS SUMMARY | 2022-05-21 11:23 | XMS_ITS | Encounter Summary ---
:1945 Author Organization [facility] Address [address] [place] [address] Care Team Providers Name Role Phone Shayla Alford D.OMauro Primary Care Provider [phone] Reason for Visit Reason Comments Med Refill Encounter Details Date Type Department Care Team Description 11/27/2020 Refill Department of Internal Medicine Shalya Rob[facility] [address] [place] [address] [place] [address] (Wo rk) Social History Tobacco Use Types [...] or relatives? How often do you attend jew or Never 2021 muslim services? Do you belong to any clubs or No 10/09/2021 organizations such as jew groups, unions, fraternal or athletic groups, or [...] have completed or the highest Martin, MEd, WIND TURBINE MECHANIC, [place]) degree you have received? Sex Assigned at Date Recorded Male 05/21/2018 2:34 PM CDT documented as of this encounter Miscellaneous Notes Telephone Encounter - Whitney Chavez - 11/27/2020 9:13 AM CST Primary Provider: Shayla Alford D.O. Name of Medication: Trulicity Strength: 0.75mg/0.5mL injection Frequency: 1 injection per week Pharmacy (include location): [facility] [place] Patient states that this was to have been called in last week and the pharmacy states they have not received this. Patient has not been able to get this filled since provider called it in. RY CUTTER documented in this encounter Plan of Treatment [...] documented as of this encounter Care Teams Pre Planning Advisor Relationship Specialty Start Date End Date Shayla Alford D.O. PCP - General Internal Medicine 05/22/[address] [address] documented as of this encounter
--- OUTSIDE RECORDS SUMMARY | 2022-05-21 11:23 | XMS_ITS | Encounter Summary ---
:1945 Author Organization [facility] Address [address] [place] [address] Care Team Providers Name Role Phone Shayla Alford D.O. Primary Care Provider [phone] Encounter Details Date Type Department Care Team Description 12/12/2020 Hospital Encounter Department of [place] Diabet es Mellitus Laboratory Medicine n, Gianna Mcguire Type 2 Without in [place], [address] Complication (H CC) [address] [place] [address] Social History Tobacco Use [...] many times do you More than three juntio es a week 10/09/2021 talk on the [...] have completed or the highest Martin, MEd, HEAD OF DIGITAL ADVERTISING & INTEGRATION, CAYDEN) degree you have received? Sex Assigned [...] by mouth tabletIndications: daily. 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 - 12/12/2020 4:45 PM CDT Please call patient following information. Your hemoglobin A1c is down to 8.3. Continue working on your diet. Once you start to Trulicity, you will see a big improvement in your A1c. Electronically signed by: Shayla Alford D.O. 12/12/20 4:45 PM CDT documented in this encounter Plan of Treatment Not on filedocumented as of this encounter Procedures Procedure Name Priority Date/Time Associated Diagnosis Comme nts HEMOGLOBIN A1C, B Routine 12/12/2020 12:37 PM Diabetes Mellitu s Results for this CDT Type 2 Without procedure are in Complication (HCC) the resul ts section. documented in this encounter Results (ABNORMAL) Hemoglobin A1c (12/12/2020 12:37 PM CDT) P athologist Signature Hemoglobin A1c, 8.3 (H) 4.2 - 5.6 12/12/2020 [facility] B % 1:34 PM CDT Comment: Hemoglobin A1c values greater than or eq ual to 6.5 percent are diagnostic for diabetes mellitus. ?? Diagnosis should be confirmed by repeat testing. ??In diabet ic patients, HbA1c goals should be discussed with healthcar e provider. Specimen Anatomical Collection Method Collection Time Receive d Time (Source) Location / / Volume Laterality Blood (Blood, 12/12/2020 12:37 12/12/2020 Venous) PM CDT 12:52 PM CDT Shayla Alford D.O. LAB BLOOD ADD-ON Performing Organization Address City/State/ZIP Code Phon e Number [facility] [address] [place] [address] [place] [address] System in [place] [address] [facility] documented in this encounter Visit Diagnoses Diagnosis Diabetes Mellitus Type 2 Without Complic ation (HCC) documented in this encounter Additional Health Concerns Assessment Noted Time PHQ-9 Depression Total Score: 18 04/28/2018 11:27 AM C DT documented as of this encounter Care Teams Seamer Relationship Specialty Start Date End Date Shayla Alford D.O. PCP - General Internal Medicine 05/22/[address] [place] [address] documented as of this encounter
--- OUTSIDE RECORDS SUMMARY | 2022-05-21 11:23 | XMS_ITS | Encounter Summary ---
:1945 Author Organization [facility] Address [address] [place] [address] Care Team Providers Name Role Phone Shayla Alford D.O. Primary Care Provider [phone] Reason for Referral MRI/CAT/PET Scan (Routine) - Closed Specialty Diagnoses / Procedures Referred By Contact Refer red To Contact Radiology Diagnoses Pancreatitis Chronic (HCC) Emil Zurita M.D. [facility] Procedures MR Abdomen MRCP without IV Contrast [address] [place], [place] [address] Referral ID Status Reason Start Date Expiration Date Visits Requ ested Visits Authorized [id number] Closed 12/07/2020 12/07/2021 1 1 R QUALITY CONTROL ENGINEER Reason for Visit Appointment Request (Routine) - Closed Specialty Diagnoses / Referred By Contact Referred To Procedures Contact Gastroenterology and Diagnoses Pancreatitis Chronic (HCC) Emil Zurita [facility]atology [place] [address] [place] [address] Referral ID Status Reason Start Date Expiration Date Visits Requ ested Visits Authorized [id number] Closed 11/27/2020 11/27/2021 1 1 Encounter Details Date Type Department Care Team Description 12/05/2020 Virtual Visit Division of Greyson Zurita C hronic Gastroenterology in [place]oda Stein (HCC) (Primary Dx) [place], [place] [address] [facility] [address] [place] [address] [phone] Social History Tobacco Use Types Packs/Day Years [...] do you attend yarsanism or Never 2021 muslim services? Do you [...] have completed or the highest Martin, MEd, LABOURERS, CAY[place]) degree you have received? Sex Assigned at Date Recorded Male 05/21/2018 2:34 PM CDT documented as of this encounter Progress Notes Emil Zurita M.D. - 12/05/2020 4:00 PM CST Gastroenterology and Hepatology Virtual Visit (COVID-19 Pandemic) Date of Consultation: 12/07/2020 This patient was virtually interviewed via real time audio in the patient's home by Emil Zurita M.D. at [facility]. The history and findings below are based on review of available medical records and a virtual conversation with the patient. This Virtual Visit was performed during theCOVID- emergency, when many states had issued [id number] orders. Referring Physician: Emil Zurita M.D. Primary Care Providers: Shayla Alford D.O. (General) [address] [facility] [address] Chief Complaint/Reason for Consult: No primary diagnosis found. History of Present Illness: Mr. Costa is a 75 y.o. male who is being seen remotely today. Mr. 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 He suffered an WY in March 2020 and is recovering from that. About 2 months back he noticed his bowel habits changed f rom what was usually diarrhea to him being constipated. He has discontinued the Creon, and is using 6 oz of prune juice daily which has helped somewhat. He has lost about 30-40 lbs weight since the WY.He has noted to have a elevated TSH and started on thyroid replacement therapy. He denies any abdominal pain or discomfort at this time. Review of Systems: All other systems reviewed and negative unless mentioned in the history of present illness, patient provided information or problem list. History Review: The following portions of the patient's history were reviewed and updated as appropriate: allergies,current medications, family history, medical history, social history, surgical history and problem list. OBJECTIVE Objective: Vital Signs: Not performed. Physical Exam: Not Performed ASSESSMENT / PLAN Assessment/Plan: #1 Chronic calcific pancreatitis #2 Constipation #3 Hypertension #4 Longstanding diabetes mellitus #5 Weight loss Mr. Costa is a 75 y.o. male and I had a virtual visit with him for evaluation and management of chronic pancreatitis and constipation. His most recent pancreatic imaging was EUS in February of 2020 that noted chronic calcific pancreatitis and a dilated duct with no focal mass. Given the interval history of weight loss had recommended repeat abdominal imaging to rule out development of pancreatic neoplasm as patients with chronic pancreatitis are at increased risk of pancreatic cancer. Reviewing his lab results it appears that he had an [place] I around the time of his cardiac decompensation and his renal function although improved has not returned to baseline. I discussed this with him and we decided to proceed with an MRI for imaging andavoid iodinated contrast. In the absence of symptoms in the past we have decided not to intervene onthe intraductal stones. Also suggested we assess his exocrine function with fat-soluble vitamin levels and if the constipation does not improve with normalization of his TSH given his advanced age and weight loss we would suggest proceeding with a colonoscopy to rule out a colonic neoplasm. Of note his most recent colonoscopy was in July 2018 that showed a 5 mm polyp with no dysplasia. Recommendations: 1. Repeat labs including fat-soluble vitamin levels and creatinine 2. MRI Abdomen with MRCP 3. If the constipation does not improve with normalization of his TSH we will proceed with the colonoscopy.He will contact me in 4-6 weeks if that is the case. He verbalized understanding the plan was in agreement. Multiple questions answered. Advised patient to look at the documentation on the patient portal. BILLIN minutes spent in a combination of the following activities: visit with the patient; reviewing records; interpreting test results; discussing plans with the patient and/or family; discussingand coordinating care with other team members and communicating / reviewing care plan with local provider(s). Emil Zurita M.D. 12/07/2020 R QUALITY CONTROL ENGINEER documented in this encounter Plan of Treatment Not on filedocumented as of this encounter Results MR Abdomen MRCP without [...] on an independent workstation as ordered by th e treating provider and reviewed by the radiologist for biliary and pancreatic d uct visualization. COMPARISON: ??CT abdomen/pelvis 10/11/19 21. FINDINGS: ??Again seen are findings of c hronic pancreatitis, with diffuse pancreatic atrophy, pancreatic ductal di latation, and extensive prominent sidebranches throughout the pancreas. Th e pancreatic duct measures up to approximately 8 [...] Remaind er negative. Emil SALINAS MRI PROCEDURES (ABNORMAL) Creatinine with Estimated GFR (12/12/2020 12:37 PM CDT) Analysis Performed At Patho logist Time Signature Creatinine 1.75 (H) 0.74 - 12/12/2020 [facility] 1.35 mg/dL 1:35 PM CDT eGFR-Black/Afri 42 (L) >=60 12/12/2020 [facility] can [place] Citizen mL/min/BSA 1:35 PM CDT Comment: ----ADDITIONAL INFORMATION---- Estimated GFR calculated using the 2009 CKD_EPI creatinine equation. eGFR Non-Black/ 37 (L) >=60 mL/min/BSA 12/12/2020 1:35 PM CDT [place] Citizen Comment: ----ADDITIONAL INFORMATION---- Estimated GFR calculated using the 2009 CKD_EPI creatinine equation. Specimen Anatomical Collection Method Collection Time Receive d Time (Source) Location / / Volume Laterality Blood (Blood, 12/12/2020 12:37 12/12/2020 Venous) PM CDT 12:52 PM CDT Authorizing Provider Result Deloris Zurita M.D. LAB BLOOD ADD-ON Performing Organization Address City/[facility]/ZIP Code Phon e Number [facility]- [address] [place] [address] [place] [address] System in [place] [address] [facility] Prothrombin Time (PT) (12/12/2020 12:37 PM CDT) P athologist Signature Prothrombin 12.0 9.4 - 12.5 12/12/2020 [place] Time, P sec 1:23 PM CDT INR 1.0 0.9 - 1.1 12/12/2020 [place] 1:23 PM CDT Comment: ----ADDITIONAL INFORMATION---- Standard intensity warfarin therapeutic range: 2.0 to 3.0 ?? High intensity warfarin therapeutic rang e: 2.5 to 3.5 Specimen Anatomical Collection Method Collection Time Receive d Time (Source) Location / / Volume Laterality Blood (Blood, 12/12/2020 12:37 12/12/2020 Venous) PM CDT 12:52 PM CDT Emil Zurita M.D. LAB BLOOD ADD-ON Performing Organization Address City/State/ZIP Code Phon e Number [facility]- [address] [place] [address] [place] [address] System in [place] [address] [facility] 25-Hydroxyvitamin D2 and D3 (12/12/2020 12:37 PM CDT) P athologist Signature 25-Hydroxy D2 <4.0 ng/mL 12/14/2020 [facility] 1:23 AM CDT 25-Hydroxy D3 35 ng/mL 12/14/2020 [facility] 1:23 AM CDT 25-Hydroxy D 35 ng/mL 12/14/2020 [facility] Total 1:23 AM CDT Comment: ----REFERENCE VALUE---- 25-HYDROXY D TOTAL (D2+D3) Optimum level s in the healthy population are 20-50, patients with bone disease may benefit from higher levels within this r stan. ----ADDITIONAL INFORMATION---- This test was developed and its performa nce characteristics determined by [facility] in a manner consistent with CLIA requirements. This test has not been cleared or approved by the [place] d and Drug Administration. Specimen Anatomical Collection Method Collection Time Receive d Time (Source) Location / / Volume Laterality Blood (Blood, 12/12/2020 12:37 12/13/2020 7:48 Venous) PM CDT AM CDT Emil Zurita M.D. LAB BLOOD ADD-ON Performing Organization Address City/[facility] Phon e Number [facility] [address] [place], [place] [address] [place], [place] [address]t. [place] [address] Laboratory Medicine and Pathology [address] [place] Vitamin A and Vitamin E (12/12/2020 12:37 PM CDT) athologist Signature Vitamin A 70.5 32.5 - 78.0 12/14/2020 1:31 [facility] mcg/dL PM CDT Comment: ----ADDITIONAL INFORMATION---- This test was developed and its performa nce characteristics determined by [facility] in a manner consistent with CLIA requirements. This test has not been cleared or approved by the [place] d and Drug Administration. A-Tocopherol, Vitamin E 6.6 5.5 - 17.0 mg/L 12/15/2020 7:53 AM CDT [facility] Specimen Anatomical Collection Method Collection Time Receive d Time (Source) Location / / Volume Laterality Blood (Blood, 12/12/2020 12:37 12/13/2020 4:45 Venous) PM CDT PM CDT Emil Zurita M.D. LAB BLOOD NON ADD-ON Performing Organization Address City/[facility] Code Phon e Number [facility] [address] [place], [place] [address] SU[facility] [place] [address] Laboratory Medicine and Pathology [address] [place] documented in this encounter Visit Diagnoses Diagnosis Pancreatitis Chronic (HCC) - Primary Pancreatitis Chronic (HCC) documented in this encounter Additional Health Concerns Assessment Noted Time PHQ-9 Depression Total Score: 18 04/28/2018 11:27 AM C DT documented as of this encounter Care Teams Tire Retreader Relationship Specialty Start Date End Date Shayla Alford D.O. PCP - General Internal Medicine 05/22/20 [address] [place] [address] documented as of this encounter
--- OUTSIDE RECORDS SUMMARY | 2022-05-21 11:23 | XMS_ITS | Encounter Summary ---
:1945 [address] [facility] Address [address] [place] [address] Care Team Providers Name Role Phone Shayla Alford D.O. Primary Care Provider [phone] Encounter Details Date Type Department Care Team Description 11/22/2020 Hospital Encounter Department of José Luis Alford thyroidism Laboratory Medicine in Gianna Mcguire [place], [place] [address] [place] [phone] Social History Tobacco Use Types [...] do you attend yarsanism or Never 2021 orthodox services? Do you [...] have completed or the highest Martin, MEd, BREAD RACKER, CAYDEN) degree you have received? Sex Assigned [...] (Trulicity) Inject 0.5 mL (0.75 2 pen 3 11/27/2020 0.75 mg/0.5 mL mg total) under the [...] With Other Forms Angina Pectoris (Angina Equivalent) ([facility]), Diabetes Mellitus Type 2 (HCC), Hypertension Essential [...] Encounter Note - Shayla Alford D.O. - 11/24/2020 9:33 AM BROOMCORN SCRAPER Please call patient following information. We will need to increase your thyroid medication further up. From 50 mcg daily to 75 mcg daily. Prescription will be sent to your pharmacy for pickup. Keep your 50 mcg tablets for future use. Electronically signed by: Shayla Alford D.O. 11/24/20 9:32 AM BROOMCORN SCRAPER MCORN SCRAPER documented in this encounter Plan of Treatment Not on filedocumented as of this encounter Procedures Procedure Name Priority Date/Time Associated Diagnosis Comme nts T3 Routine 11/22/2020 10:57 Hypothyroidism Results f or this (TRIIODOTHYRONINE), AM BROOMCORN SCRAPER procedur e are in FREE, S the results section. THYROID-STIMULATING Routine 11/22/2020 10:57 Hypothyroidism Re sults for this HORMONE-SENSITIVE AM BROOMCORN SCRAPER procedure are in (S-TSH) the results section. T4 (THYROXINE), Routine 11/22/2020 10:57 Hypothyroidism Result s for this FREE, S AM BROOMCORN SCRAPER procedure are i n the results section. documented in this encounter Results T4 (Thyroxine), Free (11/22/2020 10:57 AM BROOMCORN SCRAPER) P athologist Signature T4 (Thyroxine), 0.9 0.9 - 1.7 11/22/2020 [place] Free, P ng/dL 11:49 AM BROOMCORN SCRAPER Comment: Biotin has been identified by the capri enriquez as a potential interfering substance. ??Higher concentr ations of biotin may be found in multivitamins, hair/nail supple ments, and workout supplements. ??If the result does not ma [facility] clinical observations, repeat testing after patient refrains fr om the use of supplements for at least 12 hours. Specimen Anatomical Collection Method Collection Time Receive d Time (Source) Location / / Volume Laterality Blood (Blood, 11/22/2020 10:57 11/22/2020 Venous) AM BROOMCORN SCRAPER 10:58 AM BROOMCORN SCRAPER Shayla Alford D.O. LAB BLOOD ADD-ON Performing Organization Address City/State/ZIP Code Phon e Number [facility]- [address] [place] [address] [facility] [place] [address] System in [place] [address] (ABNORMAL) T3 (Triiodothyronine), Free (11/22/2020 10:57 AM BROOMCORN SCRAPER) athologist Signature T3 2.4 (L) 2.8 - 4.4 11/23/2020 [facility] (Triiodothyron pg/mL 9:17 AM BROOMCORN SCRAPER ine), Free, S Specimen Anatomical Collection Method Collection Time Receive d Time (Source) Location / / Volume Laterality Blood (Blood, 11/22/2020 10:57 11/23/2020 7:57 Venous) AM BROOMCORN SCRAPER AM BROOMCORN SCRAPER Shayla Alford D.O. LAB BLOOD ADD-ON Performing Organization Address City/State/ZIP Code Phon e Number [facility] [address] [place], [place] [address] [place] [address] [place] [address] Laboratory Medicine and Pathology [address] [place] (ABNORMAL) S-TSH (Thyroid-Stimulating Hormone - Sensitive) (11/22/2020 10:57 AM BROOMCORN SCRAPER) P athologist Signature TSH, Sensitive 14.0 (H) 0.3 - 4.2 11/22/2020 [place] mIU/L 11:49 AM BROOMCORN SCRAPER Specimen Anatomical Collection Method Collection Time Receive d Time (Source) Location / / Volume Laterality Blood (Blood, 11/22/2020 10:57 11/22/2020 Venous) AM BROOMCORN SCRAPER 10:58 AM BROOMCORN SCRAPER Shayla Alford D.O. LAB BLOOD ADD-ON Performing Organization Address City/State/ZIP Code Phon e Number [facility] [address] [place] [address] [place] [address] System in [place] [address] documented in this encounter Visit Diagnoses Diagnosis Hypothyroidism documented in this encounter Additional Health Concerns Assessment Noted Time PHQ-9 Depression Total Score: 18 04/28/2018 11:27 AM C DT documented as of this encounter Care Teams Licensed Pesticide Applicator Relationship Specialty Start Date End Date Shayla Alford D.O. PCP - General Internal Medicine 05/22/[address] [place] [address] documented as of this encounter
--- OUTSIDE RECORDS SUMMARY | 2022-05-21 11:23 | XMS_ITS | Encounter Summary ---
:1945 Author Organization [facility] Address [address] [place] [address] Care Team Providers Name Role Phone Shayla Alford D.O. Primary Care Provider [phone] Reason for Referral Outpatient (Routine) - Closed Specialty Diagnoses / Procedures Referred By Contact Refer red To Contact [facility] Internal Xu Prescott M.D. [place] [address] [place] [address] Referral ID Status Reason Start Date Expiration Date Visits Requ ested Visits Authorized [id number] Closed 12/20/2020 12/20/2021 1 1 Reason for Visit Reason Comments Follow-up er follow up from heart fail ure on 12/18/2020 Appointment Request (Routine) - Closed Specialty Diagnoses / Procedures Referred By Contact Madelaine castillo To Contact Family Medicine Referral ID Status Reason Start Date Expiration Date Visits Requ ested Visits Authorized [id number] Closed 12/18/2020 12/18/2021 1 1 Encounter Details Date Type Department Care Team Description 12/20/2020 Office Visit Department of Xu Prescott, Sarath On [facility] hilary Systolic (Congestive) Heart Failure (HCC) (Primary Dx); Internal Medicine in [place] Atherosclerotic Heart Disease [place] 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 Do you belong to any clubs [...] place to sleep or slept in a half-way (including now)? Education Answer Date Recorded What is the highest level of school Master's degree (e.g., M A, MS, 03/23/2019 you have completed or the highest Martin, MEd, LAPIDARIST, CAYDEN) degree you have received? Sex Assigned at Date Recorded Male 05/21/2018 2:34 PM CDT documented as of this encounter Last Filed Vital Signs Vital Sign Reading Time Taken Comments Blood Pressure 127/59 12/20/2020 9:45 AM CDT Pulse 51 12/20/2020 9:45 AM CDT Temperature 37.1 ??C (98.8 ??F) 12/20/2020 9:45 AM CDT Respiratory Rate 16 12/20/2020 9:45 AM CDT Oxygen Saturation 96% 12/20/2020 9:45 AM room air CDT Inhaled Oxygen Concentration - - Weight 98.1 kg (216 lb 4.3 oz) 12/20/2020 9:45 AM with shoes CDT Height 189.5 cm (6' 2.61) 12/20/2020 9:45 AM with shoe s CDT Body Mass Index 27.32 12/20/2020 9:45 AM CDT documented in this encounter Patient Instructions Patient InstructionsXu Prescott M.D. - 12/20/2020 10:00 AM CDT Keep taking torsemide 60 mg daily for an additional 3 days, then return to your usual 40 mg daily. Make an appointment for lab draw on Friday, and an appointment with me on Friday. Continue weighing yourself daily. documented in this encounter Progress Notes Xu Prescott M.D. - 12/20/2020 10:00 AM CDT INTERNAL MEDICINE CLINIC PROGRESS NOTE SUBJECTIVE LOCATION OF EXAM: [facility] CHIEF COMPLAINT/REASON FOR VISIT Chief Complaint Patient presents with ??? Follow-up er follow up from heart failure on 12/18/2020 HISTORY OF PRESENT ILLNESS Mr. Costa is a 75 y.o. year old male here for ER follow up after he was seen there on 12/18/20 for shortness of breath and diagnosed with acute heart failure exacerbation. He has a history of chronic systolic heart failure. Until the last several weeks he had been doing well on his chronic diuretic dose of torsemide 40 mg daily. Over the last several weeks he developed lower extremity edema and gained around 12 pounds. He as having shortness of breath with even minimal activity. On the day of presentation, he was short of breath at rest. In the ED he was noted to be volume overloaded but vitally stable and saturating well on room air. His chest x-ray showed pulmonary interstitial edema and small bilat effusions. Labs were notable for BNP of 1246 (near his baseline) and Cr of 1.7, also his baseline. Hemoglobin reduced to 10.4, stable compared to Apr 2020. He was instructed to increase torsemide to 60 mg daily for 5 days and follow up in clinic. Today is day 3 of his higher dose of toresmide, and he says he is feeling better and has noted a 6 lb decrease in his weight already. No chest pain and shortness of breath is almost gone. He thinks hissymptoms are related to cut monique which were in his home. Said he had a similar reaction to an inhaled irritant years ago. REVIEW OF SYSTEMS Complete ROS negative except as noted in HPI. I have reviewed the patient's past medical history, active problems, medications, allergies, past social and family history. PHYSICAL EXAMINATION VITAL SIGNS BP 127/59 (BP Location: Right arm, Patient Position: Sitting, Cuff Size: Regular) Pulse (!) 51 Temp 37.1 ??C (Temporal) Resp 16 Ht 189.5 cm Comment: with shoes Wt 98.1 kg Comment: with shoes SpO2 96% Comment: room air BMI 27.32 kg/m?? General: No apparent distress. Head: NCAT HEENT: PERRLA, EOMI, normal oral mucosa Cardiovascular: Regular rate and rhythm. S1, S2 without murmurs. No rubs or gallops. 1+ pitting Lower extremity edema Pulmonary: Clear to auscultation bilaterally without crackles, wheezes, rhonchi. Breathing comfortably. Gastrointestinal: Rounded in contour, normal bowel sounds, no pain to palpation, no masses or organomegaly, no rebound or guarding. Skin: no rash or lesion Neurologic: CN II-XII grossly intact. Mental: AAO x3. Mood and affect appropriate. ASSESSMENT / PLAN 1. Acute On Chronic Systolic (Congestive) Heart Failure (HCC) 2. 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 Chronic Kidney Disease (CKD), Stage 3 Unspecified (HCC) Improved after increase in diuretic. Will have him continue on torsemide 60 mg daily for another 3 days. Then will recheck his BMP. I will see him back next week to reassess his volume status and decide if more oysterman increase in his diuretic is needed. - Basic Metabolic Panel; Future I spent a total of 30 minutes reviewing the patient's medical records and diagnostic tests, seeing the patient, speaking with the nursing team, placing the orders noted above, coordinating care, and documenting in the record. Xu Prescott M.D. documented in this encounter Plan of Treatment Scheduled Referrals Name Type Priority Associated Diagnoses Order S [facility] Internal Outpatient Referral Routine Ex pected: Medicine office 12/25/2020 visit (clinic) (Approximate) , Expires: 12/21/2023 documented as of this encounter Results (ABNORMAL) [...] eGFR-Black/Afri 41 (L) >=60 12/22/2020 [facility] can [place] Citizen mL/min/BSA 2:00 PM CDT Comment: ----ADDITIONAL INFORMATION---- Estimated GFR calculated using the 2009 CKD_EPI creatinine equation. eGFR Non-Black/ 35 (L) >=60 mL/min/BSA 12/22/2020 2:00 PM CDT [place] Citizen Comment: ----ADDITIONAL [...] Laterality Blood (Blood, 12/22/2020 1:28 PM 12/23/19 1:34 Venous) CDT PM CDT Xu Prescott M.D. 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 PCP - General Internal Medicine 05/22/[address]199 [place] [address] documented as of this encounter
--- OUTSIDE RECORDS SUMMARY | 2022-05-21 11:23 | XMS_ITS | Encounter Summary ---
:1945 Author Organization [facility] Address [address] [place] [address] Care Team Providers Name Role Phone Shayla Alford D.O. Primary Care Provider [phone] Encounter Details Date Type Department Care Team Description 11/24/2020 Orders Only Department of Internal Rocío Brooks pothyroidism (Primary Medicine in [place], , [place] Mcguire Dx) [place] [address] [place] [phone] Social History Tobacco Use Types Packs/Day [...] do you attend episcopal or Never 2021 advent services? Do you [...] have completed or the highest Martin, MEd, PET CARE WORKER, CAYDEN) degree you have received? Sex Assigned at Date Recorded Male 05/21/2018 2:34 PM CDT documented as of this encounter Plan of Treatment Not on filedocumented as of this encounter Visit Diagnoses Diagnosis Hypothyroidism - Primary documented in this encounter Additional Health Concerns Assessment Noted Time PHQ-9 Depression Total Score: 18 04/28/2018 11:27 AM C DT documented as of this encounter Care Teams Battery Technician Relationship Specialty Start Date End Date Shayla Alford D.O. PCP - General Internal Medicine 05/22/[address] [phone] documented as of this encounter
--- OUTSIDE RECORDS SUMMARY | 2022-05-21 11:23 | XMS_ITS | Encounter Summary ---
:1945 Author Organization [facility] Address [address] [place] [address] Care Team Providers Name Role Phone Shayla Alford D.O. Primary Care Provider [phone] Reason for Visit Reason Comments Shortness of Breath Encounter Details Date Type Department Care Team Description 12/18/2020 - Emergency [facility] ED Effusion Pleural (Primary Dx ); 12/19/[address] [place] [phone] Social History Tobacco Use Types Packs/Day [...] or relatives? How often do you attend christian or Never 2021 islam services? Do you belong to any clubs or No 10/09/2021 organizations such as christian groups, unions, fraternal or athletic groups, or [...] or the highest Martin, MEd, PORTABLE TRACK LINE MARKER, CAYDEN) degree you have received? Sex [...] by mouth tabletIndications: daily. 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 documented in this encounter Results DX Chest Portable 1 View (12/18/2020 12:05 PM CDT) Anatomical Region Laterality Modality Chest, Thoracic RST LOS, Thoracic ARZ LOS, Thoracic N/A Digital Radiography FLA LOS Specimen (Source) Anatomical Collection Method Collection Time Re ceived Time Location / / Volume Laterality 12/18/2020 12:18 PM CDT Impressions 12/18/2020 12:19 PM CDT Compared with 11/17/2020. Enlargement of the cardiac silhouette with pulmonary vascular congestion. Enlarging small bilateral pleural effusions with associated atelectasis. Interstitial opa cities of the mid and lower lungs, patchy airspace opacities, and bronchial wall thickening. Overall the findings are most suggestive of CHF/fluid overloa d; superimposed infection/inflammation is not excluded. Aortic calcification. Narrative 12/18/2020 12:19 PM CDT EXAM: DX CHEST PORTABLE 1 VIEW Procedure Note Julio Laguna M.D. - 12/18/2020For matting of this note might be different from the original. EXAM: DX CHEST PORTABLE 1 VIEW IMPRESSION: Compared with 11/17/2020. Enlargement of the cardiac silhouette with pulmonary vascular congestion. Enlarging small bilateral pleural effusions with associated atelectasis. Interstitial opa cities of the mid and lower lungs, patchy airspace opacities, and bronchial wall thickening. Overall the findings are most suggestive of CHF/fluid overloa d; superimposed infection/inflammation is not excluded. Aortic calcification. Villalobos N Debbie MachucaNMauroPMauro IMG DIAGNOSTIC IMAGING ASHWINI LIZ documented in this encounter Visit Diagnoses Diagnosis Effusion Pleural - Primary Shortness Of Breath documented in this encounter Additional Health Concerns Assessment Noted Time PHQ-9 Depression Total Score: 18 04/28/2018 11:27 AM C DT documented as of this encounter Care Teams Supervisor Vegetable Farming Relationship Specialty Start Date End Date Shayla Alford D.O. PCP - General Internal Medicine 05/22/20 [address] [place] [phone] documented as of this encounter
--- OUTSIDE RECORDS SUMMARY | 2022-05-21 11:23 | XMS_ITS | Encounter Summary ---
:1945 Author Organization [facility] Address [address] [place] [address] Care Team Providers Name Role Phone Shayla Alford D.O. Primary Care Provider [phone] Encounter Details Date Type Department Care Team Description 11/17/2020 Hospital Encounter Department of Manuel Evans Systolic Radiology, Agustín Barber M.D. (Congestive) Heart [facility], in [address] [facility] Failure (HCC) [facility] [address] [address] [facility] [phone] [place], [place] (Work) [phone] Social History Tobacco Use Types Packs/Day Years [...] do you attend yazidi or Never 2021 protestant services? Do you [...] have completed or the highest Martin, MEd, FIELD UNDERWRITER, CAYDEN) degree you have received? Sex Assigned [...] daily SYRINGE-NEEDLE,INSULIN,0. 0 5 ML (INSULIN SYRINGE [facility]) amiodarone (PACERONE) 200 Take 200 mg by [...] by mouth tabletIndications: daily. 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 documented in this encounter Results DX Chest AP or PA and Lateral 2 Views (11/17/2020 9:31 AM ANALYTIC PROGRAMMER) Anatomical Region Laterality Modality Chest, Thoracic RST LOS, Thoracic ARZ LOS, Thoracic N/A Digital Radiography FLA LOS Specimen (Source) Anatomical Collection Method Collection Time Re ceived Time Location / / Volume Laterality 11/17/2020 9:50 AM ANALYTIC PROGRAMMER Impressions 11/17/2020 9:51 AM ANALYTIC PROGRAMMER In the interval from the prior study of 05/18/2020, a small right pleural effusion has decreased in size. Trace left pleural effusion has likely resolved. No definite additional changes . Calcified aorta. Borderline size of cardiac silhouette with slight pulmonary venous hypertension. Mitral annular calcification. Degenerative changes thor acic spine. Narrative 11/17/2020 9:51 AM ANALYTIC PROGRAMMER EXAM: ??DX CHEST AP OR PA AND LATERAL 2 VIEWS Procedure Note Franklyn Smith M.D., Ph.D. - 11/17/2020 EXAM: DX CHEST AP OR PA AND LATERAL 2 EWS IMPRESSION: In the interval from the prior study of 05/18/2020, a small right pleural effusion has decreased in size. Trace left pleural effusion has likely resolved. No definite additional changes . Calcified aorta. Borderline size of cardiac silhouette with slight pulmonary venous hypertension. Mitral annular calcification. Degenerative changes thor acic spine. Manuel Evans M.D. IMDanielle DIAGNOSTIC IMAGING PROCE AGUSTO documented in this encounter Visit Diagnoses Diagnosis Chronic Systolic (Congestive) Heart Fail ure (HCC) documented in this encounter Additional Health Concerns Assessment Noted Time PHQ-9 Depression Total Score: 18 04/28/2018 11:27 AM C DT documented as of this encounter Care Teams Script Coordinator Relationship Specialty Start Date End Date Shayla Alford D.O. PCP - General Internal Medicine 05/22/[address] [phone] documented as of this encounter
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
--- OUTSIDE RECORDS SUMMARY | 2022-05-21 11:23 | XMS_ITS | Encounter Summary ---
:1945 Author Organization [facility] Address [address] [place] [address] Care Team Providers Name Role Phone Shayla Alford D.O. Primary Care Provider [phone] Encounter Details Date Type Department Care Team Description 12/18/2020 Clinical Communication Department of Internal [facility] Medicine in [place], [place], [place] [address] [place] [phone] Social History Tobacco Use Types Packs/Day Years [...] do you attend restorationist or Never 2021 caodaism services? 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 Sex Assigned at Date Recorded Male 05/21/2018 2:34 PM CDT documented as of this encounter Miscellaneous Notes Telephone Encounter - Mabel Peguero - 12/18/2020 8:50 AM CDT Reason for Communication: Patient's calling in with NL. Patient has been having some SOB for 2 weeks and NL recommending to be seen today. No availability today with a provider. NL wants a messagesent back to PCP for advice. Please advise. Current Can Nursing/Provider leave a detailed message?: Yes Did the patient refuse triage through Nurse line? (for symptom based concerns): NL was on the line Action Needed: Call back Name of Medication (if relevant): n/a documented in this encounter Plan of Treatment Not on filedocumented as of this encounter Visit Diagnoses Not on filedocumented in this encounter Additional Health Concerns Assessment Noted Time PHQ-9 Depression Total Score: 18 04/28/2018 11:27 AM C DT documented as of this encounter Care Teams Superintendent Storage Area Relationship Specialty Start Date End Date Shayla Alford D.O. PCP - General Internal Medicine 05/22/202199 [address] [facility] [place] [address] documented as of this encounter
--- OUTSIDE RECORDS SUMMARY | 2022-05-21 11:23 | XMS_ITS | Encounter Summary ---
:1945 Author Organization [facility] Address [address] [place] [address] Care Team Providers Name Role Phone Shayla Alford D.O. Primary Care Provider [phone] Reason for Visit Reason Comments Shortness of Breath increasing over the last two weeks. Trouble sleeping, poor balance, swollen feet. He al so states he has been drinking a lot of water. Appointment Request (Routine) - Closed Specialty Diagnoses / Procedures Referred By Contact Refer red To Contact Community Internal Medicine Referral ID Status Reason Start Date Expiration Date Visits Requ ested Visits Authorized [id number] Closed 12/18/2020 12/18/2021 1 1 Encounter Details Date Type Department Care Team Description 12/18/2020 Office Visit Department of Family Augustin Wong Sho rtness Of Breath (Primary Dx); Cadence Fleming M.D. 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 Do you [...] have completed or the highest Martin, MEd, [employer]RIMPING [employer]TAIN, [place]) degree you have received? Sex Assigned at Date Recorded Male 05/21/2018 2:34 PM CDT documented as of this encounter Last Filed Vital Signs Vital Sign Reading Time Taken Comments Blood Pressure 139/56 12/18/2020 9:41 AM CDT Pulse 57 12/18/2020 9:41 AM CDT Temperature 36.7 ??C (98.1 ??F) 12/18/2020 9:41 AM CDT Respiratory Rate 16 12/18/2020 9:41 AM CDT Oxygen Saturation 96% 12/18/2020 9:41 AM CDT Inhaled Oxygen Concentration - - Weight 101 kg (222 lb 15.9 oz) 12/18/2020 9:41 AM CDT Height 188 cm (6' 2.02) 12/18/2020 9:41 AM CDT Body Mass Index 28.62 12/18/2020 9:41 AM CDT documented in this encounter Progress Notes Augustin Wong M.D. - 12/18/2020 9:45 AM CDT Progress Note Patient is 75 years old male with multiple comorbidities, past medical history significant for type 2 diabetes, hypertension, hyperlipidemia, congestive heart failure, COPD/asthma, chronic kidney disease, anemia, stroke/TIA, pancreatitis who presented today to the clinic accompanied by his for evaluation of shortness of breath. Patient has multiple hospital admissions last year because of congestive heart failure. Patient stated that his symptoms started within the past 4 weeks. It has been progressively getting worse. He stated that he has been complaining of shortness of breath that is significant, worse than his baseline, pressure in his chest, feeling off balance and fluid overload. He sta geovanny that he has been feeling his legs are swollen significantly. He also has history of COPD went asthma. He has been on Symbicort b.i.d.. He has not been using his albuterol inhalers recently except for once last night. He thinks that he could not get day inhalers to get his lungs. He admitted to have mild wheezing as well. Shortness of Breath This is a chronic problem. The current episode started 1 to 4 weeks ago. The problem occurs constantly. The problem has been gradually worsening. Associated symptoms include chest pain, leg swelling and wheezing. Pertinent negatives include no abdominal pain, claudication, coryza, ear pain, fever, headaches, hemoptysis, leg pain, neck pain, orthopnea, PND, rash, rhinorrhea, sore throat, sputum production, swollen glands, syncope or vomiting. Allergies Allergen Reactions ??? Doxycycline Anaphylaxis and [...] Disp: , Rfl: ??? levothyroxine (SYNTHROID, LEVOTHROID) 75 mcg tablet, Take 1 tablet (75 mcg total) by mouth daily., Disp: 30 tablet, Rfl: 11 ??? metoprolol succinate (TOPROL-XL) 50 mg 24 [...] sleep., Disp: 30 tablet, Rfl: 1 ??? dulaglutide (Trulicity) 0.75 mg/0.5 mL injection, Inject 0.5 mL (0.75 mg total) under the skin every 7 (seven) days. (Patient not taking: Reported on 12/12/2020 ), Disp: 2 pen, Rfl: 0 Past Medical History: Diagnosis Date ??? Apnea [...] Master's degree (e.g., MA, MS, Martin, MEd, [employer]RIMPING [employer] CAPTAIN, [employer]) Occupational History Employer: RETIRED Social Needs ??? Financial resource strain: Not hard at all ??? Food insecurity Worry: Never true Inability: Never true ??? Transportation needs Medical: No Non-medical: No Tobacco Use ??? Smoking status: Former Smoker Packs/day: 2.00 Years: 0.00 Pack years: 0.00 Types: Cigarettes, Pipe Start date: 07/13/1955 Quit date: 1980 Years since quittin.2 ??? Smokeless tobacco: Never Used Substance and Sexual Activity ??? Alcohol use: No Frequency: Never Drinks per session: 1 or 2 Binge frequency: Never ??? Drug use: Never ??? Sexual activity: Defer Lifestyle ??? Physical activity Days per week: 0 days Minutes per session: 60 min ??? Stress: To some extent Relationships ??? Social connections Talks on phone: More than three times a week Gets together: More than three times a week Attends advent service: Never Active member of club or organization: No Attends meetings of clubs or organizations: Never Relationship status: ??? Intimate partner violence Fear of current or ex partner: No Emotionally abused: No Physically abused: No Forced sexual activity: No Other Topics Concern ??? Not on file Social History Narrative ??? Not on file Constitutional: Negative for fever. Skin: Negative for skin rash. ENT: Negative for ear pain, rhinorrhea and sore throat. Respiratory: Positive for dyspnea and wheezing. Negative for hemoptysis and sputum production. Cardiovascular: Positive for chest pain, pressure or tightness and swelling in the legs or feet. Negative for orthopnea, claudication, syncope and PND. Gastrointestinal: Negative for abdominal (belly) pain or cramping and vomiting. Musculoskeletal: Negative for neck pain. Neurological: Negative for headaches. Vitals: 12/18/20 0941 BP: 139/56 BP Location: Left arm Patient Position: Sitting Cuff Size: Large Pulse: (!) 57 Resp: 16 Temp: 36.7 ??C TempSrc: Temporal SpO2: 96% Weight: 101 kg Height: 188 cm Constitutional Appearance: He is well-developed. Comments: Mild respiratory distress. HENT Head: Normocephalic and atraumatic. Right Ear: External ear normal. Left Ear: External ear normal. Nose: Nose normal. Eyes Conjunctiva/sclera: Conjunctivae normal. Pupils: Pupils are equal, round, and reactive to light. Neck Musculoskeletal: Normal range of motion and neck supple. Cardiovascular Rate and Rhythm: Normal rate and regular rhythm. Heart sounds: Normal heart sounds. Pulmonary Comments: Breath sounds are decreased bilaterally with basal crepitation. Abdominal General: Bowel sounds are normal. Palpations: Abdomen is soft. Musculoskeletal Normal range of motion. Comments: Significant edema bilaterally Skin General: Skin is warm and dry. Neurological Mental Status: He is alert and oriented to person, place, and time. Deep Tendon Reflexes: Reflexes are normal and symmetric. Jonnathan was seen today for shortness of breath. 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 Patient and his agreed to go to the ER at [place]. ER called an signed out the patient to them. documented in this encounter Plan of Treatment Not on filedocumented as of this encounter Visit Diagnoses Diagnosis Shortness Of Breath - Primary Hypertension Essential Primary Acute On Chronic Systolic (Congestive) H eart Failure (HCC) Atherosclerotic Heart Disease [place] Cor onary Artery With Other Forms Angina Pectoris (Angina Equivalent) (HCC) Beat Premature Ventricular Diabetes Mellitus Type 2 Without Complic ation (HCC) Hyperlipidemia Asthma Extrinsic Moderate (HCC) Chronic Obstructive Pulmonary Disease Ex acerbation (HCC) documented in this encounter Additional Health Concerns Assessment Noted Time PHQ-9 Depression Total Score: 18 04/28/2018 11:27 AM C DT documented as of this encounter Care Teams Janitorial Assistant Relationship Specialty Start Date End Date Shayla Alford D.O. PCP - General Internal Medicine 05/22/[address] [address] documented as of this encounter
--- OUTSIDE RECORDS SUMMARY | 2022-05-21 11:23 | XMS_ITS | Encounter Summary ---
:1945 Author Organization [facility] Address [address] [place] [address] Care Team Providers Name Role Phone Shayla Alford D.O. Primary Care Provider [phone] Reason for Referral Outpatient (Routine) - Closed Specialty Diagnoses / Procedures Referred By Contact Refer red To Contact Community Internal ARMAAN Alford [facility] Bernadette Mcguire D.O. [address] [place] [phone] Referral ID Status Reason Start Date Expiration Date Visits Requ ested Visits Authorized [id number] Closed 11/21/2020 11/21/2021 1 1 Scheduling Instructions One hour due to multiple concerns LY SERVICE ASSISTANT Reason for Visit Reason Comments Thyroid Problem Reports abnormal TSH Med Management Diabetes Mellitus Outpatient (Routine) - Closed Specialty Diagnoses / Procedures Referred By Contact Refer red To Contact Community Internal Diagnoses Failure Heart (HCC) Hypertension Essential Primary Diabetes Mellitus Type 2 Hyperglycemia (HCC) Pancreatitis Chronic Recurrent (HCC) ARMAAN Alford [facility] Tulio Mcguire [address] [place] [phone] Referral ID Status Reason Start Date Expiration Date Visits Requ ested Visits Authorized [id number] Closed 10/20/2020 10/20/2021 1 1 Encounter Details Date Type Department Care Team Description 11/21/2020 Office Visit Department of Internal Rocío Alvarado Mellitus Type 2 Hyperglycemia (HCC) (Primary Dx); Medicine in [place], [place] .O. Failure Heart (HCC); [place] [address] Hypertension Essential Primary; [address] [place], [place] Pancreatitis Chronic Recurre nt (HCC); [place] [address] Hypothyroidism; [address] Screening Cancer Colon Social History Tobacco Use Types Packs/Day Years [...] do you attend baptism or Never 2021 yazidism services? Do you [...] have completed or the highest Martin, MEd, CIRCUS RIDER, CAYDEN) degree you have received? Sex Assigned at Date Recorded Male 05/21/2018 2:34 PM CDT documented as of this encounter Last Filed Vital Signs Vital Sign Reading Time Taken Comments Blood Pressure 144/66 11/21/2020 4:03 PM FAMILY SERVICE ASSISTANT Pulse 56 11/21/2020 4:03 PM FAMILY SERVICE ASSISTANT Temperature 36.1 ??C (97 ??F) 11/21/2020 4:03 PM FAMILY SERVICE ASSISTANT Respiratory Rate - - Oxygen Saturation 98% 11/21/2020 4:03 PM FAMILY SERVICE ASSISTANT Inhaled Oxygen Concentration - - Weight 98.8 kg (217 lb 13 oz) 11/21/2020 4:03 PM FAMILY SERVICE ASSISTANT Height - - Body Mass Index 27.95 11/17/2020 2:22 PM FAMILY SERVICE ASSISTANT documented in this encounter Progress Notes Shayla lAford D.O. - 11/21/2020 4:00 PM CST SUBJECTIVE CHIEF COMPLAINT / REASON FOR VISIT Jonnathan Costa is a 75 y.o. male who presents for evaluation of Thyroid Problem (Reports abnormal TSH), Med Management, and Diabetes Mellitus. HISTORY OF PRESENT ILLNESS Jonnathan Costa is a 75 y.o. male with past medical history significant for congestive heart failure with reduced ejection fraction, history of type 2 diabetes, chronic pancreatitis, and hypertension who presents today for a medication review. I last saw the patient on 10/20/2020. Today he states to be doing well overall. From the standpoint of her type II diabetes, he is doing well on his current regimen of NovoLog 11 units under the skin three times daily and Lantus 28 units at bedtime. His last hemoglobin A1c was 8.4% on 10/12/2020. At our last appointment he was referred to our clinical pharmacist and they met on . Jonnathan states that he did not warm up to our clinical pharmacist and their souls did notclick. The patient has also been struggling with getting some of his medications/monitoring services as [facility] He did not provide his blood sugar log for my review and he checks approximately 4-5 times daily. Jonnathan describes that he feels defeated as he has not been able to get his diabetes under control after all of these years. ?? In regards to his hypertension, his blood pressure is elevated today at 144/66 mmHg. Jonnathan is on a regimen of metoprolol succinate 50 mg by mouth daily, hydralazine 25 mg by mouth three times daily, and torsemide 40 mg by mouth on Friday, Friday, Friday and 20 mg every other day of the week. He denies any chest pain or new shortness of breath. The patient has CHF and feels that he is doing better every day. In review of his EMR, he has gained approximately 12 lbs since April. He is also on Imdur 60 mg by mouth daily. Since our last appointment, he did see Cardiology on 11/17/2020. At that time they reviewed his TSH of 19.4 on 11/17/2020. 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 There are no further concerns at this time. The following portions of the patient's history were reviewed and updated as appropriate: allergies,current medications, family history, medical history, social history, surgical history, and problem list. REVIEW OF SYSTEMS A ten point ROS is otherwise negative. OBJECTIVE BP 144/66 (BP Location: Right arm, Patient Position: Sitting, Cuff Size: Regular) Pulse (!) 56 Temp 36.1 ??C (Temporal) Wt 98.8 kg SpO2 98% BMI 27.95 kg/m?? PHYSICAL EXAMINATION General Appearance: healthy, alert, [...] DIAGNOSTICS Component Latest Ref Rng & Units 10/12/2020 11/17/2020 Hemoglobin A1c, B 4.2 - 5.6 % 8.4 (H) TSH, Sensitive, S 0.3 - 4.2 mIU/L 19.4 (H) ASSESSMENT / PLAN #1 Diabetes Mellitus Type 2 Hyperglycemia (HCC). PLAN: We reviewed his Hemoglobin A1c of 8.4% on 10/12/2020. He was previously referred to our Clinical Pharmacist [Zoya Lopez] who he saw on 11/08/2020 which questions the benefit he had from that appointment. Jonnathan feels that he is defeated that he cannot get his diabetes under control. We discuss GLP-1 medication and he is started on a trial of Trulicity. - dulaglutide (Trulicity) 0.75 mg/0.5 mL injection; Inject 0.5 mL (0.75 mg total) under the skin every 7 (seven) days., Starting Fri11/21/2020, Normal Reviewed the way this medication works and possible side effects. Discussed that this may eventuallytake place/reduce his NovoLog. Continue on NovoLog 11 units under the skin three times daily and Lantus 28 units at bedtime. Continue to monitor blood sugars. I asked that he provide his blood sugar log for my review at our follow-up appointments. Encouraged ongoing efforts at aggressive lifestyle modifications including regular exercise [30 minutes per day; biking, walking, or using an exercise machine] and a healthy diet. #2 Hypothyroidism. PLAN: Cardiology note from 11/17/2020 is reviewed today. At that time they reviewed his TSH of 19.4 on 11/17/2020. 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 The following thyroid labs are ordered today: - S-TSH (Thyroid-Stimulating Hormone - Sensitive); Future; Expected date: 11/21/2020 - T3 (Triiodothyronine), Free; Future; Expected date: 11/21/2020 - T4 (Thyroxine), Free; Future; Expected date: 11/21/2020 The patient will be notified of the results when available. At this time he will continue on levothyroxine 50 mcg by mouth daily. Based on his lab results we may consider discontinuation or reduction in amiodarone therapy; but would have to consult with Cardiology prior to making these medication changes. #3 Failure Heart (HCC). 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 PLAN: Blood pressure is 144/66 mmHg. Continue on amiodarone 200 mg by mouth daily, Imdur 60 mg by mouth daily, metoprolol succinate 50 mg by mouth daily, hydralazine 25 every 8 hours, and torsemide 40 mg [two 20 mg tablets] by mouth daily. Continue risk factor modifications. Discussed signs and symptoms that would prompt immediate re-evaluation. Continue to follow-up with Cardiology per their recommendations. His last echocardiogram on 04/17/2020 showed mildly enlarged left ventricular chamber size and EF of 42%. He denies any increased shortness of breath or chest pain. Monitor daily weights. As above, based on his thyroid lab results we may consider discontinuation or reduction in amiodarone therapy but would have to consult with Cardiology prior to making these medication changes. Notify me with any questions or concerns. #5 Hypertension Essential Primary. PLAN: The patient's blood pressure is 144/66 mmHg today. Continue on current regimen of torsemide to40 mg [two 20 mg tablets] by mouth daily, metoprolol succinate 50 mg by mouth daily, and [id number] mg by mouth daily. Continue to monitor blood pressure readings with a goal of <140/80 mmHg. Hedenies any chest pain, shortness of breath, or headaches. #6 Hyperlipidemia; on statin therapy. PLAN: Continue on Lipitor 80 mg by mouth daily. Encouraged ongoing efforts at aggressive lifestyle modifications including regular exercise and a healthy diet. ?? 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 PLAN: Continue to follow-up with??Urology??per their recommendations.? #8??Chronic Kidney Disease (CKD), Stage 3 Unspecified (HCC). PLAN: Stable. Creatinine of 1.86 on 11/17/2020. Encouraged pushing fluids [greater than 64 ounces ofwater] and avoiding NSAID use.??We will continue to monitor. ?? #9 Pancreatitis Chronic Recurrent (HCC). PLAN: Continue to monitor. Discussed signs and symptoms that would prompt re-evaluation. PATIENT EDUCATION Patient Education: Ready to learn, no apparent learning barriers were identified; learning preferences include listening. Explained diagnosis and treatment plan; patient expressed understanding of the context. This document serves as a record of services personally performed by Shayla Alford D.O.. Itwas created on their behalf by Sarai Cason, a trained medical authorization specialist. The creation of this recordis based on the scribe remotely listening to the visit and the provider's statements to them. This do cument has been checked and approved by the attending provider. Time spent 55 minutes LY SERVICE ASSISTANT documented in this encounter Plan of Treatment Scheduled Referrals Name Type Priority Associated Diagnoses Order S [facility] Internal Outpatient Referral Routine Ex pected: Medicine office 12/05/2020 visit (clinic) (Approximate) , Expires: 11/21/2023 documented as of this encounter Results T4 (Thyroxine), Free (11/22/2020 10:57 AM FAMILY SERVICE ASSISTANT) P athologist Signature T4 (Thyroxine), 0.9 0.9 - 1.7 11/22/2020 [place] Free, P ng/dL 11:49 AM FAMILY SERVICE ASSISTANT Comment: Biotin has been identified by the capri enriquez as a potential interfering substance. ??Higher concentr ations of biotin may be found in multivitamins, hair/nail supple ments, and workout supplements. ??If the result does not ma [facility] clinical observations, repeat testing after patient refrains fr om the use of supplements for at least 12 hours. Specimen Anatomical Collection Method Collection Time Receive d Time (Source) Location / / Volume Laterality Blood (Blood, 11/22/2020 10:57 11/22/2020 Venous) AM FAMILY SERVICE ASSISTANT 10:58 AM FAMILY SERVICE ASSISTANT Shayla Alford D.O. LAB BLOOD ADD-ON Performing Organization Address City/State/ZIP Code Phon e Number [facility]- [address] [place] [address] [facility] [address] System in [place] [address] (ABNORMAL) T3 (Triiodothyronine), Free (11/22/2020 10:57 AM FAMILY SERVICE ASSISTANT) P athologist Signature T3 2.4 (L) 2.8 - 4.4 11/23/2020 [facility] (Triiodothyron pg/mL 9:17 AM FAMILY SERVICE ASSISTANT ine), Free, S Specimen Anatomical Collection Method Collection Time Receive d Time (Source) Location / / Volume Laterality Blood (Blood, 11/22/2020 10:57 11/23/2020 7:57 Venous) AM FAMILY SERVICE ASSISTANT AM FAMILY SERVICE ASSISTANT Shayla Alford D.O. LAB BLOOD ADD-ON Performing Organization Address City/State/ZIP Code Phon e Number [facility] [address] [place], [place] [address] [place] [address] [facility] [place] [address] Laboratory Medicine and Pathology [address] [place] (ABNORMAL) S-TSH (Thyroid-Stimulating Hormone - Sensitive) (11/22/2020 10:57 AM FAMILY SERVICE ASSISTANT) athologist Signature TSH, Sensitive 14.0 (H) 0.3 - 4.2 11/22/2020 [place] mIU/L 11:49 AM FAMILY SERVICE ASSISTANT Specimen Anatomical Collection Method Collection Time Receive d Time (Source) Location / / Volume Laterality Blood (Blood, 11/22/2020 10:57 11/22/2020 Venous) AM FAMILY SERVICE ASSISTANT 10:58 AM FAMILY SERVICE ASSISTANT Shayla Alford D.O. LAB BLOOD ADD-ON Performing Organization Address City/State/ZIP Code Phon e Number [facility]- [address] [place] [address] [facility] [place] [address] System in [place] [address] documented in this encounter Visit Diagnoses Diagnosis Diabetes Mellitus Type 2 Hyperglycemia ( HCC) - Primary Failure Heart (HCC) Hypertension Essential Primary Pancreatitis Chronic Recurrent (HCC) Hypothyroidism Screening Cancer Colon documented in this encounter Additional Health Concerns Assessment Noted Time PHQ-9 Depression Total Score: 18 04/28/2018 11:27 AM C DT documented as of this encounter Care Teams Netsuite Developer Relationship Specialty Start Date End Date Shayla Alford D.O. PCP - General Internal Medicine 05/22/202199 [place] [address] documented as of this encounter
--- OUTSIDE RECORDS SUMMARY | 2022-05-21 11:23 | XMS_ITS | Encounter Summary ---
:1945 Author Organization [facility] Address [address] [place] [address] Care Team Providers Name Role Phone Shayla Alford D.O. Primary Care Provider [phone] Encounter Details Date Type Department Care Team Description 12/12/2020 Hospital Encounter Department of Parminder, Pancreat itis Chronic Laboratory Medicine Rhoda Stein ([facility]) in [place], [facility] [address] [place], [place] [address] [address] [place], [place] [phone] [address] (Work) [phone] Social History Tobacco Use Types Packs/Day Years [...] do you attend yarsani or Never 2021 cheondoism services? Do you [...] have completed or the highest Martin, MEd, VEHICLE ASSEMBLER, [place]) degree you have received? Sex [...] by mouth tabletIndications: daily. 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 Hypothyroidism lisinopriL Take 1 tablet by 0 11/15/2008 11/06/19 22 (PRINIVIL,ZESTRIL) 10 mg mouth daily. tablet metFORMIN (GLUMETZA) Take 1 tablet by 0 02/17/200 9 11/07/2021 1,000 mg 24 hr tablet [...] Name Priority Date/Time Associated Diagnosis Comme nts VITAMIN A AND Routine 12/12/2020 12:37 Pancreatitis Chronic Re sults for this VITAMIN E, S PM CDT ([facility]) procedure are i n the results section. 25-HYDROXYVITAMIN D2 Routine 12/12/2020 12:37 Pancreatitis Chr onic Results for this AND D3, S PM CDT ([facility]) procedure are i n the results section. PROTHROMBIN TIME Routine 12/12/2020 12:37 Pancreatitis Chronic Results for this (PT), P PM CDT ([facility]) procedure are i n the results section. CREATININE WITH Routine 12/12/2020 12:37 Pancreatitis Chronic Results for this EGFR, S/P PM CDT ([facility]) procedure are i n the results section. documented in this encounter Results (ABNORMAL) Creatinine with Estimated GFR (12/12/2020 12:37 PM CDT) Analysis Performed At [facility] logist Time Signature Creatinine 1.75 (H) 0.74 - 12/12/2020 [facility] 1.35 mg/dL 1:35 PM CDT eGFR-Black/Afri 42 (L) >=60 12/12/2020 [facility] can Italian mL/min/BSA 1:35 PM CDT Comment: ----ADDITIONAL INFORMATION---- Estimated GFR calculated using the 2009 CKD_EPI creatinine equation. eGFR Non-Black/ 37 (L) >=60 mL/min/BSA 12/12/2020 1:35 PM CDT [facility] Italian Comment: ----ADDITIONAL INFORMATION---- Estimated GFR calculated using the 2009 CKD_EPI creatinine equation. Specimen Anatomical Collection Method Collection Time Receive d Time (Source) Location / / Volume Laterality Blood (Blood, 12/12/2020 12:37 12/12/2020 Venous) PM CDT 12:52 PM CDT Emil Zurita M.D. LAB BLOOD ADD-ON Performing Organization Address City/[facility]/ZIP Code Phon e Number [facility] [address] [place] [address] [place] [address] System in [place] [address] [facility] Prothrombin Time (PT) (12/12/2020 12:37 PM CDT) athologist Signature Prothrombin 12.0 9.4 - 12.5 [...] M.D. LAB BLOOD ADD-ON Performing Organization Address City/[facility]/ZIP Code Phon e Number [facility]- [address] [place] [address] [place] [address] System in [place] [address] 25-Hydroxyvitamin D2 and D3 (12/12/2020 12:37 PM CDT) P athologist Signature 25-Hydroxy D2 <4.0 ng/mL 12/14/2020 [facility] 1:23 AM CDT 25-Hydroxy D3 35 ng/mL 12/14/2020 [facility] 1:23 AM CDT 25-Hydroxy D 35 ng/mL 12/14/2020 [facility] Total 1:23 AM CDT Comment: ----REFERENCE VALUE---- 25-HYDROXY D TOTAL (D2+D3) Optimum level s in the healthy population are 20-50, patients with bone disease may benefit from higher levels within this r stan. ----ADDITIONAL INFORMATION---- This test was developed and its performa nce characteristics determined by [facility] in a manner consistent with CLIA requirements. This test has not been cleared or approved by the [place] d and Drug Administration. Specimen Anatomical Collection Method Collection Time Receive d Time (Source) Location / / Volume Laterality Blood (Blood, 12/12/2020 12:37 12/13/2020 7:48 Venous) PM CDT AM CDT Emil Zurita M.D. LAB BLOOD ADD-ON Performing Organization Address [facility] Phon e Number [facility] [address] [place] [address] [facility] [place] [address] Laboratory Medicine and Pathology [address] [place] [address] Dr. AYALA Vitamin A and Vitamin E (12/12/2020 12:37 PM CDT) P athologist Signature Vitamin A 70.5 32.5 - 78.0 12/14/2020 1:31 [facility] mcg/dL PM CDT Comment: ----ADDITIONAL INFORMATION---- This test was developed and its performa nce characteristics determined by [facility] in a manner consistent with CLIA requirements. This test has not been cleared or approved by the [place] d and Drug Administration. A-Tocopherol, Vitamin E 6.6 5.5 - 17.0 mg/L 12/15/2020 7:53 AM CDT [facility] Specimen Anatomical Collection Method Collection Time Receive d Time (Source) Location / / Volume Laterality Blood (Blood, 12/12/2020 12:37 12/13/2020 4:45 Venous) PM CDT PM CDT Emil Zurita M.D. LAB BLOOD NON ADD-ON Performing Organization Address City/[facility] Phon e Number [place] [phone] [place] [address] [address] [facility] [place] [address] Laboratory Medicine and Pathology [address] AYALA documented in this encounter Visit Diagnoses Diagnosis Pancreatitis Chronic (HCC) documented in this encounter Additional Health Concerns Assessment Noted Time PHQ-9 Depression Total Score: 18 04/28/2018 11:27 AM C DT documented as of this encounter Care Teams Silk Screener Relationship Specialty Start Date End Date Shayla Alford D.O. PCP - General Internal Medicine 05/22/[address] [phone] documented as of this encounter
--- OUTSIDE RECORDS SUMMARY | 2022-05-21 11:24 | XMS_ITS | Encounter Summary ---
:1945 Author Organization [facility] Address [address] [place] [address] Care Team Providers Name Role Phone Shayla Alford D.O. Primary Care Provider [phone] Reason for Visit Reason Comments Care Coordination Monthly Billing- August 18 Encounter Details Date Type Department Care Team Description 08/28/2020 Patient Outreach Department of Westley Sommer Legal Compliance Officer rdination Internal Medicine in nShayla D .OMauro (Monthly Billing- Portal, [place] [address] August 2020) [address] [place] [phone] Social History Tobacco Use Types Packs/Day Years [...] do you attend baptism or Never 2021 roman catholic services? Do [...] have completed or the highest Martin, MEd, PERFUME AND TOILET WATER MAKER, [place]YDEN) degree you have received? Sex Assigned at Date Recorded Male 05/21/2018 2:34 PM CDT documented as of this encounter Plan of Treatment Not on filedocumented as of this encounter Visit Diagnoses Diagnosis Acute On Chronic Systolic (Congestive) H eart Failure (HCC) Diabetes Mellitus Type 2 Without Complic ation (HCC) Failure Heart (HCC) Hypertension Essential Primary documented in this encounter Additional Health Concerns Assessment Noted Time PHQ-9 Depression Total Score: 18 04/28/2018 11:27 AM C DT documented as of this encounter Care Teams Rubber Engraver Relationship Specialty Start Date End Date Shayla Alford D.O. PCP - General Internal Medicine 05/22/[address] [phone] documented as of this encounter
--- OUTSIDE RECORDS SUMMARY | 2022-05-21 11:24 | XMS_ITS | Encounter Summary ---
:1945 Author Organization [facility] Address [address] [place] [address] Care Team Providers Name Role Phone Shayla Alford D.O. Primary Care Provider [phone] Reason for Referral Outpatient (Routine) - Closed Specialty Diagnoses / Procedures Referred By Contact Refer red To Contact Diagnoses Chronic Systolic (Congestive) Heart Failure (HCC) Manuel Evans M.D. [facility] Procedures Echo Transthoracic (TTE) [address] [place] [address] Referral ID Status Reason Start Date Expiration Date Visits Requ ested Visits Authorized [id number] Closed 06/06/2020 06/06/2021 1 1 ETICS DIRECTOR Reason for Visit Outpatient (Routine) - Closed Specialty Diagnoses / Procedures Referred By Contact Refer red To Contact Diagnoses Chronic Systolic (Congestive) Heart Failure (HCC) Manuel Evans M.D. [facility] Procedures Echo Transthoracic (TTE) [address] [place], [place] [address] Referral ID Status Reason Start Date Expiration Date Visits Requ ested Visits Authorized [id number] Closed 06/06/2020 06/06/2021 1 1 Encounter Details Date Type Department Care Team Description 11/17/2020 Hospital Encounter Department of Cristina Chronic Systolic Cardiovascular Manuel Barber M.D. (Congestive) Heart Diseases in [place] [address] [address] Failure (HCC) [place], [place] [address] [place] [address] [place], [place] [phone] (Work) [phone] Social History Tobacco Use Types Packs/Day Years [...] do you attend quaker or Never 2021 yarsani services? Do you [...] have completed or the highest Martin, MEd, DISPLAY DECORATOR, CAYDEN) degree you have received? Sex Assigned [...] (Lantus Inject 28 Units 10 mL 12 01/22/ 2021 02/22/2021 U-100 Insulin) 100 under the skin at unit/mL bedtime. injectionIndications: Diabetes Mellitus Type 2 Hyperglycemia (HCC) isosorbide mononitrate Take 1 tablet (60 mg 0 11/201902/22/2021 (IMDUR) 60 mg 24 hr total) by mouth tabletIndications: daily. 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 documented in this encounter Results (TTE) 2D ECHO DOPPLER COLOR (11/17/2020 11:23 AM DIETETICS DIRECTOR) [facility] Method Time Signature Ejection Fraction 50 MC CV EIMS Wall Motion Score 1.38 MC CV EIMS Index LV Mass Index 141 MC CV EIMS LV End-Diastolic 65 MC CV EIMS Diameter LV End-Systolic 47 MC CV EIMS Diameter MV E Velocity 1.5 MC CV EIMS MV A Velocity 0.3 MC CV EIMS MV E/A 5.00 MC CV EIMS MV e' Velocity 0.04 MC CV EIMS Medial MV e' Velocity 0.07 MC CV EIMS Lateral MV E/e' Medial 37.5 MC CV EIMS MV E/e' Lateral 21.4 MC CV EIMS Left ventricular 50 MC CV EIMS stroke volume index Cardiac Output 5.86 MC CV EIMS Cardiac Index 2.58 MC CV EIMS LV Interventricular 11 MC CV EIMS Septal Wall Thickness LV Posterior Wall 11 MC CV EIMS Thickness LV Relative Wall 34 MC CV EIMS Thickness Tricuspid Annular S? 0.13 MC CV EIMS TR Vmax 3.16 MC CV EIMS RA Pressure 5 MC CV EIMS RV Systolic Pressure 45 MC CV EIM S Estimated diastolic 14 MC CV EIMS pulmonary artery pressure AV mean gradient 4 MC CV EIMS Aortic valve area 3.31 MC CV EIMS Aortic Valve 0.73 MC CV EIMS Dimensionless Index MV mean gradient 2 MC CV EIMS WMSI At Rest 1.38 MC CV EIMS WMSI At Peak Stress 1.38 MC CV EIMS Anatomical Region Laterality Modality Echocardiography Specimen (Source) Anatomical Collection Method Collection Time Re ceived Time Location / / Volume Laterality 11/17/2020 9:48 AM DIETETICS DIRECTOR Impressions 11/17/2020 2:48 PM DIETETICS DIRECTOR Intravenous Lumason ultrasound enhancement agent(s) administered to enhance endocardial border definition. ??Last full echocardiogram p erformed 04/17/2020. ??Echocardiogram performed per left ventricular function protocol. ??LEFT VE NTRICLE: ??Mild-moderately enlarged left ventricular chamber size. ??Mildly increased concent zeenat left ventricular wall thickness. ??Estimated left ventricular ejection fraction 50 %. ??Ca lculated 2-D linear left ventricular ejection fraction 53 %. ??Left ventricular mass index by 2 D 141 g/m^2. ??Left ventricular volumetric assessment not performed because of image quality. ??Re gional wall motion abnormalities were present (see wall motion graphics). ??Indeterminate left v entricular diastolic function. ??RIGHT VENTRICLE: ??Mildly enlarged right ventricular chamber size by visual estimate. ??Normal right ventricular systolic function. ??Estimated right ventricular systolic pressure 45 mmHg (systolic blood pressure 135 mmHg). ??ATRIA: ??Enlarged left atrial s ize by visual estimate. ??Enlarged right atrial size by visual estimate. ??CARDIAC VALVES: ??Tri leaflet aortic valve. ??Sclerotic aortic valve. ??Mild aortic valve regurgitation. ??Mildly thi ckened mitral valve. ??Severely calcified mitral annulus. Mitral valve diastolic mean Doppler gra dient 2 mmHg (heart rate 52 BPM). ??Mild-moderate mitral valve regurgitation. ??Pulmonary valve n ot well visualized. ??Moderate pulmonary valve regurgitation. ??Normal tricuspid valve. ??Mild tricuspid valve regurgitation. ??OTHER ECHO FINDINGS: ??Normal inferior vena cava si ze with normal inspiratory collapse (>50%). ??No intracardiac mass or thrombus, but the l eft atrial appendage cannot be visualized adequately with transthoracic echo to exclude throm bus in this location. ??No pericardial effusion. For the complete report, see the trueEX Documents. Narrative 11/17/2020 2:48 PM DIETETICS DIRECTOR For the complete report, see the trueEX Documents. Final Impressions 1. Mild-moderately enlarged left ventric ular chamber size. 2. Estimated left ventricular ejection f raction 50 %. 3. Regional wall motion abnormalities we re present (see wall motion graphics). 4. Estimated right ventricular systolic pressure 45 mmHg (systolic blood pressure 135 mmHg). 5. Severely calcified mitral annulus. 6. Mitral valve diastolic mean Doppler g radient 2 mmHg (heart rate 52 BPM). 7. Mild-moderate mitral valve regurgitat ion. 8. Normal inferior vena cava size with n ormal inspiratory collapse (>50%). 9. Compared to the report of 04/17/2020 the following changes have occurred: . left ventricular systolic function improved. Regional wal l motion abnormalities better visualized today with use of echo enhancing agent. Procedure Note Vesta Lee M.D., Ph.D. - 11/17/2020 For the complete report, see the Order-L evel Documents. Final Impressions 1. Mild-moderately enlarged left ventric ular chamber size. 2. Estimated left ventricular ejection f raction 50 %. 3. Regional wall motion abnormalities we re present (see wall motion graphics). 4. Estimated right ventricular systolic pressure 45 mmHg (systolic blood pressure 135 mmHg). 5. Severely calcified mitral annulus. 6. Mitral valve diastolic mean Doppler g radient 2 mmHg (heart rate 52 BPM). 7. Mild-moderate mitral valve regurgitat ion. 8. Normal inferior vena cava size with n ormal inspiratory collapse (>50%). 9. Compared to the report of 04/17/2020 the following changes have occurred: . left ventricular systolic function improved. Regional wal l motion abnormalities better visualized today with use of echo enhancing agent. Findings Intravenous Lumason ultrasound enhanceme nt agent(s) administered to enhance endocardial border definition. Last full echocardiogram per formed 04/17/2020. Echocardiogram performed per left ventricular function protocol. LEFT VENT RICLE: Mild-moderately enlarged left ventricular chamber size. Mildly increased concentri c left ventricular wall thickness. Estimated left ventricular ejection fraction 50 %. Calc ulated 2-D linear left ventricular ejection fraction 53 %. Left ventricular mass index by 2D 141 g/m^2. Left ventricular volumetric assessment not performed because of image quality. Kiersten onal wall motion abnormalities were present (see wall motion graphics). Indeterminate left mason tricular diastolic function. RIGHT VENTRICLE: Mildly enlarged right ventricular chamber size by visual estimate. Normal right ventricular systolic function. Estimated right ventricular sy stolic pressure 45 mmHg (systolic blood pressure 135 mmHg). ATRIA: Enlarged left atrial size by visual estimate. Enlarged right atrial size by visual estimate. CARDIAC VALVES: Trileaf let aortic valve. Sclerotic aortic valve. Mild aortic valve regurgitation. Mildly thick ened mitral valve. Severely calcified mitral annulus. Mitral valve diastolic mean Doppler gra dient 2 mmHg (heart rate 52 BPM). Mild- moderate mitral valve regurgitation. Pulmonary valve not well visualized. Moderate pulmonary valve regurgitation. Normal tricuspid valve. M ild tricuspid valve regurgitation. OTHER ECHO FINDINGS: Normal inferior vena cava size with normal inspiratory collapse (>50%). No intracardiac mass or thrombus, but the l eft atrial appendage cannot be visualized adequately with transthoracic echo to exclude throm bus in this location. No pericardial effusion. For the complete report, see the Order-L evel Documents. Manuel L Clavell M.D. CV ECHO PROCEDURES documented in this encounter Visit Diagnoses Diagnosis Chronic Systolic (Congestive) Heart Fail ure (HCC) documented in this encounter Administered Medications Inactive Administered Medications - up to 3 most recent administrations Medication Order MAR Action Action Date Dose Rate Site sulfur hexafluoride microspheres Given 11/17/2020 11:53 AM DIETETICS DIRECTOR 1 .6 mL injection (LUMASON) intravenous, As needed, contrast, Starting on Fri11/17/20 at 1153, See protocol. Reconstitute each 25 mg vial with 5 mL NS. documented in this encounter Additional Health Concerns Assessment Noted Time PHQ-9 Depression Total Score: 18 04/28/2018 11:27 AM C DT documented as of this encounter Care Teams Iron Bender Relationship Specialty Start Date End Date Shayla Alford D.O. PCP - General Internal Medicine 05/22/[address] [phone] documented as of this encounter
--- OUTSIDE RECORDS SUMMARY | 2022-05-21 11:24 | XMS_ITS | Encounter Summary ---
:1945 Author Organization [facility] Address [address] [place] [address] Care Team Providers Name Role Phone Shayla Alford D.O. Primary Care Provider Encounter Details Date Type Department Care Team Description 09/06/2020 Clinical Communication Department of Internal Andrei Dejesus Medicine in [place], [place], D.O [place] [address] [place] [phone] Social History Tobacco Use Types Packs/Day Years [...] do you attend synagogue or Never 2021 amish services? Do you [...] have completed or the highest Martin, MEd, CLIENT SERVICES COORDINATOR, [place]) degree you have received? Sex Assigned at Date Recorded Male 05/21/2018 2:34 PM CDT documented as of this encounter Miscellaneous Notes Telephone Encounter - Anjali Sam - 09/06/2020 10:32 AM CST Reason for Communication: Patient has lab work on 10/12 and is asking to have an order for an A1C added to that appointment Current Can Nursing/Provider leave a detailed message?: yes Did the patient refuse triage through Nurse line? 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 PCP - General Internal Medicine 05/22/[address] [phone] documented as of this encounter
--- OUTSIDE RECORDS SUMMARY | 2022-05-21 11:24 | XMS_ITS | Encounter Summary ---
:1945 Author Organization [facility] Address [address] [place] [address] Care Team Providers Name Role Phone Shayla Alford D.O. Primary Care Provider [phone] Encounter Details Date Type Department Care Team Description 10/12/2020 Hospital Encounter Department of [place] Chroni c Systolic (Congestive) Heart Failure (HCC); Laboratory Medicine n, Gianna Mcguire Anemia In Chronic Kidney Disease; in [place], [address] Elevated Liver Enzyme Abnormal, Aspartate Transaminase, Serum Glutamic-Oxaloacetic Transaminase, Alanine Transaminase [facility] [address] [facility] [place] [phone] Social History Tobacco Use Types Packs/Day Years [...] do you attend sikh or Never 2021 congregation services? Do you [...] have completed or the highest Martin, MEd, SLP TEACHER, CAYDEN) degree you have received? Sex [...] if not eating. insulin glargine (Lantus Inject 24 Units 10 mL 12 201910/20/2020 U-100 Insulin) 100 under the skin at unit/mL bedtime. injectionIndications: Diabetes Mellitus Type 2 Without Complication (HCC) isosorbide mononitrate Take 1 tablet (60 mg 0 11/201902/22/2021 (IMDUR) 60 mg 24 hr total) by mouth tabletIndications: daily. 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 Do not crush or chew. potassium chloride Take 10 mEq by mouth 0 020 11/08/2020 (KLORCON/K-TAB) 10 mEq ER daily with tablet breakfast. torsemide (DEMADEX) 20 mg 40 mg on Friday, 0 04/3010/20/2020 tablet Friday and Friday. 20 mg on Friday, and Friday. traZODone (DESYREL) 100 Take 1 tablet (100 30 tablet 1 04/202002/22/2021 mg tablet mg total) by mouth at bedtime as needed for sleep. documented as of this encounter Plan of Treatment Not on filedocumented as of this encounter Procedures Procedure Name Priority Date/Time Associated Diagnosis Comme nts HEPATIC FUNCTION Routine 10/12/2020 9:15 AM Elevated Liver Enz yme Results for this PANEL, S ETL TESTER Abnormal, Aspartate procedur e are in Transaminase, Serum the resu lts Glutamic-Oxaloacetic section . Transaminase, Alanine Transaminase CBC WITH Routine 10/12/2020 9:15 AM Anemia In Chronic Resu lts for this DIFFERENTIAL, B ETL TESTER Kidney Disease procedure are in the results section. BASIC METABOLIC Routine 10/12/2020 9:15 AM Chronic Systolic Re sults for this PANEL, S/P ETL TESTER (Congestive) Heart procedure are in Failure (HCC) the results section. documented in this encounter Results (ABNORMAL) Hepatic Function Panel (10/12/2020 9:15 AM ETL TESTER) [facility] Method Time Signature Bilirubin, Total, P 0.5 <=1.2 10/12/2020 [place] mg/dL 10:13 AM ETL TESTER Bilirubin, Direct, P <0.2 0.0 - 0.3 10/12/2020 [place] mg/dL 10:19 AM ETL TESTER Aspartate 32 8 - 48 10/12/2020 [place] Aminotransferase U/L 10:13 AM ETL TESTER (AST), P Alanine 46 7 - 55 10/12/2020 [place] Aminotransferase U/L 10:13 AM ETL TESTER (ALT), P Alkaline 135 (H) 40 - 129 10/12/2020 [place] Phosphatase, P U/L 10:13 AM ETL TESTER Albumin, P 3.9 3.5 - 5.0 10/12/2020 [place] g/dL 10:13 AM ETL TESTER Protein, Total, P 6.6 6.3 - 7.9 10/12/2020 [place] g/dL 10:13 AM ETL TESTER Specimen Anatomical Collection Method Collection Time Receive d Time (Source) Location / / Volume Laterality Blood (Blood, 10/12/2020 9:15 AM 10/12/19 9:27 Venous) ETL TESTER AM ETL TESTER Shayla Alford D.O. LAB BLOOD ADD-ON Performing Organization Address City/State/ZIP Code Phon e Number [facility]- [address] [place] [address] [facility] [place] [address] System in [place] [address] (ABNORMAL) CBC with Differential, Blood (10/12/2020 9:15 AM ETL TESTER) [facility] gist Method Time Signature Hemoglobin 10.0 (L) 13.2 - 10/12/2020 [place] 16.6 g/dL 9:31 AM ETL TESTER Hematocrit 30.9 (L) 38.3 - 10/12/2020 [place] 48.6 % 9:31 AM ETL TESTER Erythrocytes 3.29 (L) 4.35 - 10/12/2020 [place] 5.65 9:31 AM ETL TESTER x10(12)/L MCV 93.9 78.2 - 10/12/2020 [place] 97.9 fL 9:31 AM ETL TESTER RBC Distrib Width 12.6 11.8 - 10/12/2020 [place] 14.5 % 9:31 AM ETL TESTER Platelet Count 176 135 - 317 10/12/2020 [place] x10(9)/L 9:31 AM ETL TESTER Leukocytes 6.1 3.4 - 9.6 10/12/2020 [place] x10(9)/L 9:31 AM ETL TESTER Neutrophils 4.36 1.56 - 10/12/2020 [place] 6.45 9:31 AM ETL TESTER x10(9)/L Lymphocytes 0.93 (L) 0.95 - 10/12/2020 [place] 3.07 9:31 AM ETL TESTER x10(9)/L Monocytes 0.42 0.26 - 10/12/2020 [place] 0.81 9:31 AM ETL TESTER x10(9)/L Eosinophils 0.28 0.03 - 10/12/2020 [place] 0.48 9:31 AM ETL TESTER x10(9)/L Basophils 0.06 0.01 - 10/12/2020 [place] 0.08 9:31 AM ETL TESTER x10(9)/L Specimen Anatomical Collection Method Collection Time Receive d Time (Source) Location / / Volume Laterality Blood (Blood, 10/12/2020 9:15 AM 10/12/19 9:27 Venous) ETL TESTER AM ETL TESTER Shayla Alford D.O. LAB BLOOD ADD-ON Performing Organization Address City/State/ZIP Code Phon e Number [facility]- [address] [place] [address] [place] [address] System in [place] [address] (ABNORMAL) Basic Metabolic Panel (10/12/2020 9:15 AM ETL TESTER) Analysis Performed At Patho logist Time Signature Potassium, P 4.4 3.6 - 5.2 10/12/2020 [place] mmol/L 10:13 AM ETL TESTER Sodium, P 137 135 - 145 10/12/2020 [place] mmol/L 10:13 AM ETL TESTER Chloride, P 103 98 - 107 10/12/2020 [place] mmol/L 10:13 AM ETL TESTER Bicarbonate, P 26 22 - 29 10/12/2020 [place] mmol/L 10:13 AM ETL TESTER Anion Gap, P 8 7 - 15 10/12/2020 [place] 10:13 AM ETL TESTER BUN (Blood Urea 41 (H) 8 - 24 10/12/2020 [place] Nitrogen), P mg/dL 10:13 AM ETL TESTER Creatinine 1.70 (H) 0.74 - 10/12/2020 [place] 1.35 mg/dL 10:13 AM ETL TESTER eGFR-Black/Afri 44 (L) >=60 10/12/2020 [place] can [place] mL/min/BSA 10:13 AM ETL TESTER Comment: ----ADDITIONAL INFORMATION---- Estimated GFR calculated using the 2009 CKD_EPI creatinine equation. eGFR Non-Black/ 38 (L) >=60 mL/min/BSA 10/12/2020 10:13 AM ETL TESTER [place] Comment: ----ADDITIONAL INFORMATION---- Estimated GFR calculated using the 2009 CKD_EPI creatinine equation. Calcium, Total, P 8.8 8.8 - 10.2 mg/dL 10/12/2020 10:1 3 AM ETL TESTER [place] Glucose, P 305 (H) 70 - 140 mg/dL 10/12/2020 10:13 AM ETL TESTER [place] Specimen Anatomical Collection Method Collection Time Receive d Time (Source) Location / / Volume Laterality Blood (Blood, 10/12/2020 9:15 AM 10/12/19 9:27 Venous) ETL TESTER AM ETL TESTER Shayla Alford D.O. LAB BLOOD ADD-ON Performing Organization Address City/State/ZIP Code Phon e Number [facility]- [address] [place] [address] [place] [address] System in [place] [address] [facility] documented in this encounter Visit Diagnoses Diagnosis Chronic Systolic (Congestive) Heart Fail ure (HCC) Anemia In Chronic Kidney Disease Elevated Liver Enzyme Abnormal, Aspartat e Transaminase, Serum Glutamic-Oxaloacetic Transaminase, Alanine Transaminase documented in this encounter Additional Health Concerns Assessment Noted Time PHQ-9 Depression Total Score: 18 04/28/2018 11:27 AM C DT documented as of this encounter Care Teams Template Inspector Relationship Specialty Start Date End Date Shayla Alford D.O. PCP - General Internal Medicine 05/22/202199 [place] [phone] documented as of this encounter
--- OUTSIDE RECORDS SUMMARY | 2022-05-21 11:24 | XMS_ITS | Encounter Summary ---
:1945 Author Organization [facility] Address [address] [place] [address] Care Team Providers Name Role Phone Shayla Alford D.O. Primary Care Provider [phone] Reason for Visit Reason Comments Care Coordination Graduation Encounter Details Date Type Department Care Team Description 09/01/2020 Patient Outreach Department of Ronda Fernandez Internal Medicine A, R.N. (Graduation) in [place] [address] [place], [place] [address] [phone] [place], [place] [phone] (Work) [phone] Social History Tobacco Use Types Packs/Day Years [...] do you attend lutheran or Never 2021 temple services? Do you [...] have completed or the highest Martin, MEd, NEWS LIBRARY DIRECTOR, CAYDEN) degree you have received? Sex Assigned at Date Recorded Male 05/21/2018 2:34 PM CDT documented as of this encounter Progress Notes Ronda Fernandez, R.N. - 09/01/2020 9:33 AM CST SUBJECTIVE REASON FOR VISIT Adult Medical Care Coordination Dismissal Summary HISTORY OF PRESENT ILLNESS Jonnathan was enrolled in the Adult Medical Care Coordination on 05/12/20 with a LACE+ Score of 78. He had success in the program, graduated and has transitioned back to the care team. Jonnathan Bandar Costa participated in the development of the dismissal summary. Social History Social Determinants of Health: No categories of concern noted by patient. ASSESSMENT / PLAN Patient states his weight has increased slightly in the past few days and is now up to 208 pounds - it was 206 pounds on 08/28/20. He denies any SOB or PND, but does endorse a very small amount of LEedema, which he says is at his baseline. He verbalizes that he doesn't think he is eating any more than normal or that it could be a factor. Because he is slightly concerned about his weight trending up , he will call and make an appointment to see his PCP. Mr. Costa explains that his blood sugars continue to be a roller coaster and that he often has no idea what makes them so variable from day to day when he often eats similar things. We discussed other factors that can influence blood sugars.He will discuss his blood sugars when he sees his PCP next. I still continue to feel very tired during the day and could nod off at any time. I feel like this should have gotten better by now. OR maybe its one of the medications that I'm taking, I don't know.He states he sleeps very soundly at night and averages 10 hours per night. He will discuss his daytime fatigue with his PCP also. Patient now has a nurse (Zoya) form [facility] that is calling him to help him manage his chronic conditions and he is appreciative of her assistance as he will be graduating from this program. Summary of interventions recommended and/or implemented during the episode of care: Jonnathan Costa identified the following to be beneficial for him: Planning: planning on my garden, planning on what I'm going to do with my grandson. So planning on shorter term things has beenhelpful, not looking at what I'm going to do over the next 20 years. He has also reduced his portion sizes of meals, and this is a big change for him I'm eating like a chickadee, and not like a bear anymore. Things that have not been beneficial to him are: Sitting around too much. I can still do better at this. Summary of goals during episode of care: Patient has been successful in completing the goals as set by the Adult Medical Care Coordination Program, including those about managing his heart failure, sick day plans for CHF and DM2, and emergency plans. He has also been successful in lowering his A1c, working at improving his strength in order to do a 5k next summer, and he has started the process of restoring a tractor or other equipment at his home. Self-management strategies: Jonnathan Costa is able to demonstrate use of the following tracking method(s) to monitor his health: glucometer and scale. He does not write these numbers down as he says that is memory is good and he remembers them. Red Flags: Jonnathan Costa identified the following symptoms associated with worsening of Asthma: very short of breath and wheezing , Diabetes: most fasting blood sugars >180, confusion, fatigue and blurred vision: and Heart Failure: shortness of breath with exertion, shortness of breath when lying down, weight gain or loss of more than 5 lbs in 2 days and swelling in legs, ankles or feet. Medication Management: Current medication list was reviewed and updated as appropriate. Jonnathan Costa was able to verbalize the importance of an accurate medication list., demonstrate process for medication refills. and set-up medications using a twice a day pill box system medication system. His also helps him manage his medications as needed. He verbalizes that he knows the names of what he takes, but not what they are used for, and even though the indication for his medications has been reviewed with him multiple times, he says it is an area he always struggles with. Personal Health Record: Jonnathan Costa was able to verbalize the importance of some people utilizing a health record but does not use one himself as he says he remembers his numbers and questions I'm supposed to ask. The Plan of Care was updated and a copy was reviewed and provided to the patient. Shayla Alford D.O. was notified of Jonnathan Portillo Julissa transition back to the care team. Jonnathan Costa was encouraged to contact the primary care team with questions, concerns or return of symptoms and was able to teach back this information. Disposition/Recommendation: recommended continue engagement in self-management activities Education: patient/caller able to teach back Caller agreeable to plan of care: yes The following references were used: none NED GLASS PAINTER documented in this encounter Plan of Treatment Not on filedocumented as of this encounter Visit Diagnoses Not on filedocumented in this encounter Additional Health Concerns Assessment Noted Time PHQ-9 Depression Total Score: 18 04/28/2018 11:27 AM C DT documented as of this encounter Care Teams Core Microarchitect Relationship Specialty Start Date End Date Shayla Alford D.O. PCP - General Internal Medicine 05/22/20 [address] [place] [phone] documented as of this encounter
--- OUTSIDE RECORDS SUMMARY | 2022-05-21 11:24 | XMS_ITS | Encounter Summary ---
:1945 Author Organization [facility] Address [address] [place] [address] Care Team Providers Name Role Phone Shayla Alford.OMauro Primary Care Provider [phone] Encounter Details Date Type Department Care Team Description 09/06/2020 Orders Only Department of Internal Coleman Alford iabetes Mellitus Type 2 Medicine in Shayla Dixon, D.O Ma[place] Without Complication [place] [address] (HCC) (Primary Dx) [address] [place] [phone] Social History Tobacco Use [...] do you attend anabaptism or Never 2021 catholic services? Do you [...] have completed or the highest Martin, MEd, JET PIERCER OPERATOR, CAYDEN) degree you have received? Sex Assigned at Date Recorded Male 05/21/2018 2:34 PM CDT documented as of this encounter Plan of Treatment Not on filedocumented as of this encounter Results (ABNORMAL) Hemoglobin A1c (10/12/2020 9:15 AM WATCH REPAIRER) athologist Signature Hemoglobin A1c, 8.4 (H) 4.2 - 5.6 10/12/2020 [place] B % 9:44 AM WATCH REPAIRER Comment: Hemoglobin A1c values greater than or eq ual to 6.5 percent are diagnostic for diabetes mellitus. ?? Diagnosis should be confirmed by repeat testing. ??In diabet ic patients, HbA1c goals should be discussed with healthcar e provider. Specimen Anatomical Collection Method Collection Time Receive d Time (Source) Location / / Volume Laterality Blood (Blood, 10/12/2020 9:15 AM 10/12/19 9:27 Venous) WATCH REPAIRER AM WATCH REPAIRER Shayla Alford D.O. LAB BLOOD ADD-ON Performing Organization Address City/State/ZIP Code Phon e Number [facility]- [address] [place] [address] [place] [address] System in [place] [address] [facility] documented in this encounter Visit Diagnoses Diagnosis Diabetes Mellitus Type 2 Without Complic ation (HCC) - Primary documented in this encounter Additional Health Concerns Assessment Noted Time PHQ-9 Depression Total Score: 18 04/28/2018 11:27 AM C DT documented as of this encounter Care Teams Marble Worker Relationship Specialty Start Date End Date Shayla Alford D.O. PCP - General Internal Medicine 05/22/202199 [place] [phone] documented as of this encounter
--- OUTSIDE RECORDS SUMMARY | 2022-05-21 11:24 | XMS_ITS | Encounter Summary ---
:1945 Author Organization [facility] Address [address] [place] [address] Care Team Providers Name Role Phone Shayla Alford D.O. Primary Care Provider [phone] Reason for Visit Reason Comments Pancreas Medication Question Encounter Details Date Type Department Care Team Description 10/16/2020 Clinical Division of Parminder Pancreas; Communication Gastroenterology in [place], [place] M.D. Question [address] [facility] [address] [place] [address] [place] [address] Social History Tobacco Use Types Packs/Day Years [...] do you attend mu-ism or Never 2021 cheondoism services? Do you [...] have completed or the highest Martin, MEd, AGENT PRODUCER, CAYDEN) degree you have received? Sex Assigned at Date Recorded Male 05/21/2018 2:34 PM CDT documented as of this encounter Miscellaneous Notes Telephone Encounter - Emili Lucas R.N. - 11/27/2020 8:57 AM CST PANCREAS SYMPTOM ASSESSMENT # [phone] Date of : 1945 (75 y.o.) Jonnathan Costa Last pancreas clinic visit/pancreas provider: 03/13/2020 Dr. Zurita Patient reports that he has not taken Creon for one month. He is consistently constipated, he has started taking MiraLAX and reports he is getting 60 or so oz of water per day. His PCP checked thyroid function (available in labs) and he was started on Synthroid 75 mg. Patient reports starting this medication about 4 days ago. He is usually able to have a BM once per day but does not when he is unableto go he has some abdominal discomfort. He is not having any new abdominal pain or other symptom changes. Patient will await any further recommendations as needed. PLAN: Disposition/Recommendation: self-care is appropriate at this time, patient encouraged to call back with questions Information/Education: patient/caller able to teach back Caller agreeable to plan of care: yes The following references were used: nursing clinical judgement and provider Dr. Zurita PATROLLER Telephone Encounter - Daphney Batista R.N. - 11/03/2020 8:55 AM SKI PATROLLER SUBJECTIVE CHIEF COMPLAINT / REASON FOR CALL Pancreas and Medication Question Information Discussed Updated patient of Dr. Zurita's recommendations. The patient did want to update Dr. Zurita that he has been off his Creon for about two weeks and has noticed no difference; he continues to stay constipated. He also wanted to make all his providers away that he is generally cold but he specificallyhas very cold hands. Denies any numbness/tingling. He did indicate that everyday he is feeling a little bit better. Updated patient message would be sent to both Dr. Zurita and Dr. Alford per patient request. He voiced understanding and was very appreciative of call. PLAN Disposition/Recommendation: per the above Information/Education: patient/caller able to teach back Caller agreeable to plan of care: yes The following references were used: nursing clinical judgement and provider Dr. Zurita PATROLLER Telephone Encounter - Daphney Batista RShama. - 10/20/2020 10:44 AM SKI PATROLLER SUBJECTIVE CHIEF COMPLAINT / REASON FOR CALL Pancreas and Medication Question Information Discussed Spoke with the patient who reports he started Creon about one year ago for diarrhea. Prior to six weeks ago, the patient was taking 2 capsules with each meal and 1 with snacks but never more than 4 capsules daily. About 4-6 weeks ago the patient started to experience constipation which he has not had issues with previously. He reduced his Creon capsules to no more than 2 (total) daily. BM's prior to constipation were daily and now he reports having to strain a lot more stating he eventually manages but he's not always having them daily. He denies abdominal pain, reflux or other abdominal symptoms and said nothing has changed recently. Of note, the patient reports he had a heart attack this summer. Although he is concerned with the constipation his priority and main concern is recovery from his heart attack. He confirmed receiving his first COVID-19 vaccine two days ago and besides a little sore shoulder, he tolerated it well. As the conversation was concluding the patient stated I think I'm still depressed. He denies any thoughts to harm himself or others and said my attitude is good but my energy is low. The patient stated he's gone through a couple depressions in my lifetime and currently attributes this to recent r etirement, a recent heart attack and winter. Previously patient has seen psychiatrists and currentlyreports taking Trazodone to help with his sleep. He states work, summertime and sleep are really what help him come out. He reiterated this feeling is primarily related to lack of energy and that no ones life is in danger. He confirms a really good support system of three alpha daughters and an alphawife. The patient had an appointment with his PCP, Dr. Reid earlier this morning and he said this wasn't brought up since their focus really was on diabetes management and recovery. Updated patient this message would be sent to Dr. Zurita for review and recommendations. The patient stated his only request is that whatever recommendations that Dr. Zurita makes, it is conveyed to Dr. Reid. PLAN Disposition/Recommendation: notified provider and awaiting recommendations Information/Education: patient/caller able to teach back Caller agreeable to plan of care: yes The following references were used: nursing clinical judgement PATROLLER documented in this encounter Plan of Treatment Not on filedocumented as of this encounter Visit Diagnoses Not on filedocumented in this encounter Additional Health Concerns Assessment Noted Time PHQ-9 Depression Total Score: 18 04/28/2018 11:27 AM C DT documented as of this encounter Care Teams Agricultural Equipment Design Engineer Relationship Specialty Start Date End Date Shayla Alford D.O. PCP - General Internal Medicine 05/22/20 [address] [place] [phone] documented as of this encounter
--- OUTSIDE RECORDS SUMMARY | 2022-05-21 11:24 | XMS_ITS | Encounter Summary ---
:1945 Author Organization [facility] Address [address] [place] [address] Care Team Providers Name Role Phone Shayla Alford D.O. Primary Care Provider [phone] Reason for Referral Physical Therapy (Routine) - Closed Specialty Diagnoses / Procedures Referred By Contact Refer red To Contact Diagnoses Unsteadiness Gait Disorder Non Orthopedic Yen Buchanan M.D., M.B.A. [address] [place] [address] Referral ID Status Reason Start Date Expiration Date Visits V isits Requested Authorized [id number] Closed Service not 09/13/2020 09/13/2021 1 1 available at any [facility] site CLEANER MACHINE TENDER Reason for Visit Reason Comments Palpitations states he had an episode yes terday that lasted few seconds where it felt like his heart was flutteri ng - it resolved on its own. No other symptoms Appointment Request (Routine) - Closed Specialty Diagnoses / Procedures Referred By Contact Refer red To Contact Community Internal Medicine Referral ID Status Reason Start Date Expiration Date Visits Requ ested Visits Authorized [id number] Closed 09/13/2020 09/13/2021 1 1 Encounter Details Date Type Department Care Team Description 09/13/2020 Office Visit Department of Internal Kalpesh Buchanan re Heart (HCC) (Primary Dx); Medicine in Yen Patel M.D., Uns teadiness Gait Disorder Non Orthopedic; [facility].B.AMauro Beat Premature Ventricular [address] [place] [phone] Social History Tobacco Use Types Packs/Day Years [...] do you attend yarsani or Never 2021 orthodox services? Do you [...] have completed or the highest Martin, MEd, CASH TELLER, CAYDEN) degree you have received? Sex Assigned at Date Recorded Male 05/21/2018 2:34 PM CDT documented as of this encounter Last Filed Vital Signs Vital Sign Reading Time Taken Comments Blood Pressure 136/66 09/13/2020 10:44 AM FISH CLEANER MACHINE TENDER Pulse 51 09/13/2020 10:44 AM FISH CLEANER MACHINE TENDER Temperature 36.8 ??C (98.2 ??F) 09/13/2020 10:44 AM FISH CLEANER MACHINE TENDER Respiratory Rate 16 09/13/2020 10:44 AM FISH CLEANER MACHINE TENDER Oxygen Saturation - - Inhaled Oxygen Concentration - - Weight 97.7 kg (215 lb 6.2 oz) 09/13/2020 10:44 AM FISH CLEANER MACHINE TENDER Height 189 cm (6' 2.41) 09/13/2020 10:44 AM FISH CLEANER MACHINE TENDER Body Mass Index 27.35 09/13/2020 10:44 AM FISH CLEANER MACHINE TENDER documented in this encounter Progress Notes Yen Buchanan M.D., M.B.A. - 09/13/2020 11:00 AM CST INTERNAL MEDICINE Progress note DATE OF EXAM 09/13/2020 LOCATION OF EXAM [facility] CHIEF COMPLAINT/REASON FOR VISIT Chief Complaint Patient presents with ??? Palpitations states he had an episode yesterday that lasted few seconds where it felt like his heart was fluttering - it resolved on its own. No other symptoms HISTORY OF PRESENT ILLNESS Jonnathan Costa is a very pleasant 75 y.o. patient with past medical history of DM type 2, essential hypertension, asthma, and congestive heart failure. Patient is here after he was referred by the nurse due to an episode of palpitations. He stated thathe had an episode of palpitation yesterday it was for few seconds, it was brief, not associated withchest pain or shortness of breath. Not associated with dizziness or presyncope. Patient stated that he had no previous similar events. Patient is adherent to his medications. I reviewed previous cardiology notes, EKG, and echo. I discussed ensured with patient detailed information. Patient describes episodes of unsteadiness. brief events of unsteadiness once patient engage in maneuvers that require brisk movement of head and neck. No vertigo instead brief unsteadiness with no dizziness or presyncope. Essential hypertension, this is chronic problem, blood pressure trended from the most recent visits.Kidney function and GFR reviewed. Medications reviewed. Patient describes no symptoms of chest pain,severe headache, or new focal neurological deficit. Patient was educated earlier about the importance of salt restriction. Social History Socioeconomic History ??? Marital status: Spouse name: None ??? Number of children: None ??? Years of education: None ??? Highest education level: Master's degree (e.g., MA, MS, Martin, MEd, CASH TELLER, CAYDEN) Occupational History Employer: RETIRED Social Needs ??? Financial resource strain: Not hard at all ??? Food insecurity Worry: Never true Inability: Never true ??? Transportation needs Medical: No Non-medical: No Tobacco Use ??? Smoking status: Former Smoker Packs/day: 2.00 Years: 0.00 Pack years: 0.00 Types: Cigarettes, Pipe Start date: 07/13/1955 Quit date: 1979 Years since quittin.9 ??? Smokeless tobacco: Never Used Substance and [...] More than three times a week Attends orthodox service: Never Active member of club or organization: No Attends meetings of clubs or organizations: Never Relationship status: ??? Intimate partner violence Fear of current or ex partner: No Emotionally abused: No Physically abused: No Forced sexual activity: No Other Topics Concern ??? None Social History Narrative ??? None Family History Problem Relation Age of Onset ??? Hypertension Mother ??? Heart attack Father age 76 ??? Depression Father ??? Asthma Sister ??? Asthma Brother ??? Depression Brother ??? Asthma Son Past Medical History: Diagnosis Date ??? Apnea Sleep Obstructive 06/18/2011 intolerant to CPAP therapy ??? Asthma (HCC) 10/16/2009 Pulmonary symptomatology, diagnosis at the ID unclear, but probably some degree of COPD. [...] ??? Hypertension Essential Primary 09/23/2007 ??? Malignant Neoplasm (HCC) ??? Pancreatitis Acute (HCC) ??? Personal [...] head on 09/17/2017 ??? Transient Ischemic Attack Allergies Allergen Reactions ??? Doxycycline Anaphylaxis and Other (see comments) Bactrim ??? Penicillin Hives and Rash Cerner Listed no Reactions ??? Sulfa (Sulfonamide Antibiotics) Other (see comments) and Anaphylaxis Cerner Listed no Reactions ??? Amlodipine Hypotension, Nausea Only and Other (see comments) ??? Lisinopril Cough ??? Victoza 2-Eyal [Liraglutide] GI intolerance ??? Gadavist [Gadobutrol] GI intolerance Patient vomited after administration REVIEW OF SYSTEMS Constitutional: Denies fever, chills Eyes: Denies recent vision loss Cardiovascular: Denies chest pain and syncope Respiratory: Denies cough, wheezes Gastrointestinal:Denies nausea, vomiting Skin: Denies new skin lesions or ulcers Endocrine: Denies polyuria and polydipsia Hematological: Denies bruising, and bleeding Genitourinary: Denies dysuria and hematuria Neurology: Denies severe headache and paralysis All other systems reviewed and negative. I have reviewed the patient's past medical history, active problems, medications, allergies, and past social history. OBJECTIVE PHYSICAL EXAMINATION Blood pressure 136/66, pulse (!) 51, temperature 36.8 ??C, temperature source Temporal, resp. rate 16, height 189 cm, weight 97.7 kg. Body mass index is 27.35 kg/m??. GENERAL: 75 y.o. male year old , not in distress, intact gait, HEENT: head atraumatic, face symmetrical, pupils reactive to light, negative [place]-Hallpike, no nystagmus NECK: supple, no tracheal shift CARDIOVASCULAR: No rubs or gallops. LUNGS: symmetrical air entry bilateral, no wheezes, no rhonchi, ABDOMEN: Rounded, soft, without tenderness to palpation with no organomegaly. SKIN: warm, hair distribution symmetrical MUSCULOSKELETAL: within normal range of motion NEUROLOGIC: alert, oriented to person, place and time, no gross focal neurological deficit, power ofboth upper and lower extremities within normal 5/5, symmetrical reflexes. IMPRESSION/REPORT/PLAN : MRI/physical therapy/ #1 Failure Heart (HCC) Chronic, asymptomatic and euvolemic. Continue with current therapy. Patient is scheduled to have repeat of kidney function, potassium and magnesium. He will follow-up on results with Dr. Reid. - Magnesium; Future; Expected date: 09/13/2020 #2 Unsteadiness Gait Disorder Non Orthopedic Assessment & Plan: Recent brief events of unsteadiness once patient engage in maneuvers that require brisk movement of head and neck. No vertigo instead brief unsteadiness with no dizziness or presyncope. I discussed with the patient potential causes of his symptoms including inner ear disease or neurological illness. Patient agreed to start with balance and coordination exercises-physical therapy-he stated that he will get his blood work done before next visit with Dr. Reid, he is motivated to follow with ENT specialist and to have MRI of the brain done. Patient was advised to contact me immediately if he develops any new symptoms. He stated that he will follow with Dr Reid. I discussed with Dr. Ried who kindly agreed to follow-up with patient on his concerns. Orders: - External referral PT (non-[place]) - Vestibular balance evaluation; Future; Expected date: 09/13/2020 - MR Brain without IV Contrast; Future; Expected date: 09/13/2020 #3 Beat Premature Ventricular Brief episode, his pulse is regular today with no PVCs. Patient counseled about alarm symptoms including dizziness, chest pain, or presyncope. Patient denied any other symptoms. Patient advised to report any new symptoms as he may need Holter monitor or further evaluation down the line. For now patient prefers to continue to monitor his symptoms. //////// What to expect after this visit : for staff and patient //////// Symptoms: if symptoms are getting worse or patient develops fever/chills or new symptoms: advise patient to come back and see a provider immediately. PATIENT EDUCATION Patient Education: Ready to learn, no apparent learning barriers were identified; learning preferences include listening. Explained diagnosis and treatment plan; patient expressed understanding of the content. I spent 45 minutes spent in direct patient care, of which 35 minutes was spent on counselling. Yen Buchanan M.D., M.B.A. CLEANER MACHINE TENDER documented in this encounter Miscellaneous Notes Assessment & Plan Note - Yen Buchanan M.D., M.B.A. - 09/13/2020 12:58 PM CSTAssociated Problem(s): Unsteadiness Gait Disorder Non Orthopedic Recent brief events of unsteadiness once patient engage in maneuvers that require brisk movement of head and neck. No vertigo instead brief unsteadiness with no dizziness or presyncope. I discussed with the patient potential causes of his symptoms including inner ear disease or neurological illness. Patient agreed to start with balance and coordination exercises-physical therapy-he stated that he will get his blood work done before next visit with Dr. Reid, he is motivated to follow with ENT specialist and to have MRI of the brain done. Patient was advised to contact me immediately if he develops any new symptoms. He stated that he will follow with Dr Reid. CLEANER MACHINE TENDER documented in this encounter Plan of Treatment Not on filedocumented as of this encounter Results Magnesium (10/19/2020 9:00 AM FISH CLEANER MACHINE TENDER) P athologist Signature Magnesium, P 1.8 1.7 - 2.3 10/19/2020 [place] mg/dL 10:08 AM FISH CLEANER MACHINE TENDER Specimen Anatomical Collection Method Collection Time Receive d Time (Source) Location / / Volume Laterality Blood (Blood, 10/19/2020 9:00 AM 10/19/19 9:03 Venous) FISH CLEANER MACHINE TENDER AM FISH CLEANER MACHINE TENDER Yen Buchanan M.D., M.B.A. LAB BLOOD ADD-ON Performing Organization Address City/State/ZIP Code Phon e Number [facility] [address] [place] [address] [facility] [place] [address] System in [place] [address] documented in this encounter Visit Diagnoses Diagnosis Failure Heart (HCC) - Primary Unsteadiness Gait Disorder Non Orthopedi c Beat Premature Ventricular documented in this encounter Additional Health Concerns Assessment Noted Time PHQ-9 Depression Total Score: 18 04/28/2018 11:27 AM C DT documented as of this encounter Care Teams Vegetable Loader Relationship Specialty Start Date End Date Shayla Alford D.O. PCP - General Internal Medicine [address] [place] [address] documented as of this encounter
--- OUTSIDE RECORDS SUMMARY | 2022-05-21 11:24 | XMS_ITS | Encounter Summary ---
:1945 Author Organization [facility] Address [address] [place] [address] Care Team Providers Name Role Phone Shayla Alford D.O. Primary Care Provider [phone] Reason for Referral Outpatient (Routine) - Closed Specialty Diagnoses / Procedures Referred By Contact Refer red To Contact Community Internal Diagnoses Failure Heart (HCC) Hypertension Essential Primary ARMAAN Alford [facility] Tulio Mcguire [address] [place] [phone] Referral ID Status Reason Start Date Expiration Date Visits Requ ested Visits Authorized [id number] Closed 10/12/2020 10/12/2021 1 1 Scheduling Instructions Vitals recheck BP and weight , please in form me if BP >150 systolic and if gained more than 5 pounds since visit ATOR OPERATOR Outpatient (Routine) - Closed Specialty Diagnoses / Procedures Referred By Contact Refer red To Contact [facility] Internal ARMAAN Alford [facility] Tulio Mcguire [address] [place] [phone] Referral ID Status Reason Start Date Expiration Date Visits Requ ested Visits Authorized [id number] Closed 10/12/2020 10/12/2021 1 1 Scheduling Instructions Schedule one hour ATOR OPERATOR Reason for Visit Reason Comments Diabetes Mellitus Appointment Request (Routine) - Closed Specialty Diagnoses / Procedures Referred By Contact Refer red To Contact Community Internal Medicine Referral ID Status Reason Start Date Expiration Date Visits Requ ested Visits Authorized [id number] Closed 09/06/2020 09/06/2021 1 1 Encounter Details Date Type Department Care Team Description 10/12/2020 Office Visit Department of [place] Diabetes Me llitus Type 2 Hyperglycemia (HCC) (Primary Dx); Internal Medicine Shayla larry D. O. 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 Do you belong to any clubs [...] have completed or the highest Martin, MEd, ACQUISITION MANAGER, CAYDEN) degree you have received? Sex Assigned at Date Recorded Male 05/21/2018 2:34 PM CDT documented as of this encounter Last Filed Vital Signs Vital Sign Reading Time Taken Comments Blood Pressure 153/60 10/12/2020 11:59 AM NITRATOR OPERATOR Pulse 50 10/12/2020 11:43 AM NITRATOR OPERATOR Temperature 36.2 ??C (97.1 ??F) 10/12/2020 11:43 AM NITRATOR OPERATOR Respiratory Rate - - Oxygen Saturation - - Inhaled Oxygen Concentration - - Weight 99.2 kg (218 lb 11.1 oz) 10/12/2020 11:43 AM NITRATOR OPERATOR Height - - Body Mass Index 27.77 09/13/2020 10:44 AM NITRATOR OPERATOR documented in this encounter Progress Notes Shayla Alford, D.Jason. - 10/12/2020 12:00 PM CST SUBJECTIVE CHIEF COMPLAINT / REASON FOR VISIT Jonnathan Costa is a 75 y.o. male who presents for evaluation of Diabetes Mellitus. HISTORY OF PRESENT ILLNESS Jonnathan Costa is a 75 y.o. male with past medical history significant for congestive heart failure with reduced ejection fraction, history of type 2 diabetes, chronic pancreatitis, and hypertension who presents today for a medication review. I last saw the patient on 07/19/2020. ?? From the standpoint of her type II diabetes, he is doing well on his current regimen of NovoLog 11 units under the skin three times daily and Lantus 24 units at bedtime. His last hemoglobin A1c was 8.0% on 07/01/2020. He did not provide his blood sugar log for my review but he does monitor his blood sugars regularly at home. ?? In regards to his hypertension, his blood pressure is elevated today at 153/60 mmHg. Jonnathan is on a regimen of Metoprolol succinate 50 mg by mouth daily, Hydralazine 25 mg by mouth three times daily, and Torsemide 40 mg by mouth on Friday, Friday, Friday and 20 mg every other day of the week. He denies any chest pain or new shortness of breath. He is also on Imdur 60 mg by mouth daily for his CHF. There are no further concerns at this time. ?? The following portions of the patient's history were reviewed and updated as appropriate: allergies,current medications, family history, medical history, social history, surgical history, and problem list. REVIEW OF SYSTEMS A ten point ROS is otherwise negative. OBJECTIVE BP 153/60 Pulse (!) 50 Temp 36.2 ??C (Temporal) Wt 99.2 kg BMI 27.77 kg/m?? PHYSICAL EXAMINATION General Appearance: healthy, alert, [...] Patella and Achilles 2+ bilaterally and symmetric. No edema, cyanosis or calf tenderness.. ASSESSMENT / PLAN #1 Diabetes Mellitus Type 2 Hyperglycemia (HCC). PLAN: We reviewed his Hemoglobin A1c of 8.0% on 07/01/2020. Congratulated him on the improvement in his blood sugars. He will continue on his regimen of Lantus to 28 units at bedtime and NovoLog 11 units under the skin three times daily. Encouraged ongoing efforts at aggressive lifestyle modificationsincluding regular exercise and a healthy diet. Continue to monitor blood sugars. I asked that he provide his blood sugar log for my review at our follow-up appointments. Will repeat Hemoglobin A1c prior to our follow-up appointment in 3 months. 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 Continue risk factor modifications. Discussed signs and symptoms that would prompt immediate re-evaluation. Continue to follow-up with Cardiology per their recommendations. His last echocardiogram on04/17/2020 showed mildly enlarged left ventricular chamber size and EF of 42 %. He denies any increased shortness of breath or chest pain. Monitor daily weights. Notify me with any questions or concerns. #4 Hypertension Essential Primary. PLAN: The patient's blood pressure is elevated at 153/60 mmHg today. At this time he will continue on his current regimen of Metoprolol succinate 50 mg by mouth daily, Hydralazine 25 mg by mouth daily,and Torsemide 40 mg by mouth on Friday, Friday, Friday and 20 mg every other day of the week. Continue to monitor blood pressure readings with a goal of <140/80 mmHg. He will return to see me for BP recheck and medication adjustment in one week . #5 Hyperlipidemia; on statin therapy. PLAN: Continue on Lipitor 80 mg by mouth daily. Encouraged ongoing efforts at aggressive lifestyle modifications including regular exercise and a healthy diet. #6 Pancreatitis Chronic Recurrent (HCC) PLAN: Continue to monitor. Discussed signs and symptoms that would prompt re-evaluation. 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 PLAN: Continue to follow-up with Urology per their recommendations. #8 Chronic Kidney Disease (CKD), Stage 3 Unspecified (HCC) PLAN: Stable. Creatinine of 1.98 on 06/02/2020 which is improved from 2.12 on 05/25/2020. Encouragedpushing fluids [greater than 64 ounces of water] and avoiding NSAID use. #9 Constipation. PLAN: Patient is provided with a prescription for MiraLAX 17 gm by mouth daily. - polyethylene glycol (MIRALAX) 17 gram powder packet; Take 1 packet (17 g total) by mouth daily. Dissolve each 17 g dose in 240 mLs (8 ounces) of beverage., Starting Hali 10/12/2020, Normal Electronically signed by: Shayla Alford D.O. 10/20/20 1:01 PM NITRATOR OPERATOR Time spent 45 minutes This document serves as a record of services personally performed by Shayla Alford D.O.. Itwas created on their behalf by Sarai Cason, a trained medical assistant cardiology. The creation of this recordis based on the scribe remotely listening to the visit and the provider's statements to them. This do cument has been checked and approved by the attending provider. ATOR OPERATOR documented in this encounter Plan of Treatment Scheduled Referrals Name Type Priority Associated Diagnoses Order [facility] Internal Outpatient Referral Routine Ex pected: Medicine office 01/10/2021 visit (clinic) (Approximate) , Expires: 10/12/2023 [facility] Internal Outpatient Referral Routine Failure H eart (HCC) Expected: Medicine office Hypertension 10/19/2020 visit (clinic) Essential Primary (Approxi mate), Expires: 10/12/2023 documented as of this encounter Visit Diagnoses Diagnosis Diabetes Mellitus Type 2 Hyperglycemia ( HCC) - Primary Hyperlipidemia Pancreatitis Chronic Recurrent (HCC) Failure Heart (HCC) 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 (HCC) Atherosclerotic Heart Disease [place] Cor onary Artery With Other Forms Angina Pectoris (Angina Equivalent) (HCC) Chronic Kidney Disease (CKD), Stage 3 Un specified (HCC) Constipation Hypertension Essential Primary documented in this encounter Additional Health Concerns Assessment Noted Time PHQ-9 Depression Total Score: 18 04/28/2018 11:27 AM C DT documented as of this encounter Care Teams Research Home Economist Relationship Specialty Start Date End Date Shayla Alford D.O. PCP - General Internal Medicine [address], [place] [address] documented as of this encounter
--- OUTSIDE RECORDS SUMMARY | 2022-05-21 11:24 | XMS_ITS | Encounter Summary ---
:1945 Author Organization [facility] Address [address] [place] [address] Care Team Providers Name Role Phone Shayla Alford D.O. Primary Care Provider [phone] Reason for Referral Outpatient (Routine) - Closed Specialty Diagnoses / Procedures Referred By Contact Refer red To Contact Community Internal Diagnoses Failure Heart (HCC) Hypertension Essential Primary Diabetes Mellitus Type 2 Hyperglycemia (HCC) Pancreatitis Chronic Recurrent (HCC) ARMAAN Alford [facility] Tulio Mcguire [address] [place] [phone] Referral ID Status Reason Start Date Expiration Date Visits Requ ested Visits Authorized [id number] Closed 10/20/2020 10/20/2021 1 1 S SALES ADVISOR Outpatient (Routine) - Closed Specialty Diagnoses / Procedures Referred By Contact Refer red To Contact Pharmacy Diagnoses Diabetes Mellitus Type 2 Hyperglycemia (HCC) Shayla Alford [facility] Region D.O. [address] [place] [phone] Referral ID Status Reason Start Date Expiration Date Visits Requ ested Visits Authorized [id number] Closed 10/20/2020 10/20/2021 1 1 S SALES ADVISOR Reason for Visit Outpatient (Routine) - Closed Specialty Diagnoses / Procedures Referred By Contact Refer red To Contact [facility] Internal ARMAAN Alford [facility] Tulio Mcguire [address] [place] [address] Referral ID Status Reason Start Date Expiration Date Visits Requ ested Visits Authorized [id number] Closed 10/12/2020 10/12/2021 1 1 Encounter Details Date Type Department Care Team Description 10/20/2020 Office Visit Department of Internal Rocío Di abetes Mellitus Type 2 Hyperglycemia (HCC) (Primary Dx); Medicine in [place], , Coleman Mcguire Failure Heart (HCC); [place] [address] Hypertension Essential Primary; [address] [place], [place] Pancreatitis Chronic Recurre nt (HCC); [place] [address] Hyperlipidemia; [phone] Malignant Neoplasm Of Bladde r Lateral Wall (HCC); Maintenance Health Adult Social History Tobacco Use Types Packs/Day Years [...] do you attend scientology or Never 2021 gnosticist services? Do you [...] completed or the highest Martin, MEd, SENIOR IT PROJECT MANAGER, [employer]) degree you have received? Sex Assigned at Date Recorded Male 05/21/2018 2:34 PM CDT documented as of this encounter Last Filed Vital Signs Vital Sign Reading Time Taken Comments Blood Pressure 146/70 10/20/2020 8:48 AM PARTS SALES ADVISOR Pulse 52 10/20/2020 8:48 AM PARTS SALES ADVISOR Temperature 36.2 ??C (97.1 ??F) 10/20/2020 8:48 AM PARTS SALES ADVISOR Respiratory Rate 16 10/20/2020 8:48 AM PARTS SALES ADVISOR Oxygen Saturation - - Inhaled Oxygen Concentration - - Weight 99.2 kg (218 lb 11.1 oz) 10/20/2020 8:48 AM PARTS SALES ADVISOR Height 189 cm (6' 2.41) 10/20/2020 8:48 AM PARTS SALES ADVISOR Body Mass Index 27.77 10/20/2020 8:48 AM PARTS SALES ADVISOR documented in this encounter Progress Notes Shayla Alford D.O. - 10/20/2020 9:00 AM CST SUBJECTIVE CHIEF COMPLAINT / REASON FOR VISIT Jonnathan Costa is a 75 y.o. male who presents for evaluation of No chief complaint on file.. HISTORY OF PRESENT ILLNESS Jonnathan Costa is a 75 y.o. male with past medical history significant for congestive heart failure with reduced ejection fraction, history of type 2 diabetes, chronic pancreatitis, and hypertension who presents today for a medication review. I last saw the patient on 10/12/2020. Today he states to be doing well overall. From the standpoint of her type II diabetes, he is doing well on his current regimen of NovoLog 11 units under the skin three times daily and Lantus 24 units at bedtime. His last hemoglobin A1c was 8.4% on 10/12/2020. He did not provide his blood sugar log for my review and he checks approximately 4-5times daily. There have been instances where he has had some readings below 80, where he will have to eat a little sugar and it can take him some time to recover. In regards to his hypertension, his blood pressure is elevated today at 146/70 mmHg. Jonnathan is on a regimen of [...] on Imdur 60 mg by mouth daily. There are no further concerns at this time. The following portions of the patient's history were reviewed and updated as appropriate: allergies,current medications, family history, medical history, social history, surgical history, and problem list. REVIEW OF SYSTEMS A ten point ROS is otherwise negative. OBJECTIVE BP 146/70 (BP Location: Left arm, Patient Position: Sitting, Cuff Size: Regular) Pulse (!) 52 Temp 36.2 ??C (Axillary) Resp 16 Ht 189 cm Wt 99.2 kg BMI 27.77 kg/m?? PHYSICAL EXAMINATION General Appearance: healthy, alert, no distress. Skin: skin color, texture, turgor normal, no suspicious rashes or lesions. Head: normocephalic, no masses, lesions, tenderness or abnormalities. Neck: Supple, no adenopathy; thyroid symmetric, normal size, no bruits. Lungs: Mild crackles are heard in the right base, otherwise lungs are clear to auscultation. No wheezing. Heart: RRR without murmur, gallop, or rubs. No ectopy, No carotid bruits. Extremities: DTRs: Patella and Achilles 2+ bilaterally and symmetric. There is 1-2+ lower extremity edema bilaterally. No cyanosis or calf tenderness.. DIAGNOSTICS Component Latest Ref Rng & Units 10/12/2020 10/19/2020 Hemoglobin 13.2 - 16.6 g/dL 10.0 (L) Hematocrit 38.3 - 48.6 % 30.9 (L) Erythrocytes 4.35 - 5.65 x10(12)/L 3.29 (L) MCV 78.2 - 97.9 fL 93.9 RBC Distrib Width 11.8 - 14.5 % 12.6 Platelet Count 135 - 317 x10(9)/L 176 White Blood Cell Count 3.4 - 9.6 x10(9)/L 6.1 Neutrophils 1.56 - 6.45 x10(9)/L 4.36 Lymphocytes 0.95 - 3.07 x10(9)/L 0.93 (L) Monocytes 0.26 - 0.81 x10(9)/L 0.42 Eosinophils 0.03 - 0.48 x10(9)/L 0.28 Basophils 0.01 - 0.08 x10(9)/L 0.06 Potassium, P 3.6 - 5.2 mmol/L 4.4 Sodium, P 135 - 145 mmol/L 137 Chloride, P 98 - 107 mmol/L 103 Bicarbonate, P 22 - 29 mmol/L 26 Anion Gap, P 7 - 15 8 BUN, P 8 - 24 mg/dL 41 (H) Creatinine, P 0.74 - 1.35 mg/dL 1.70 (H) eGFR Black >=60 mL/min/BSA 44 (L) eGFR Non-Black >=60 mL/min/BSA 38 (L) Calcium, Total, P 8.8 - 10.2 mg/dL 8.8 Glucose, P 70 - 140 mg/dL 305 (H) Bilirubin, Total, P <=1.2 mg/dL 0.5 Bilirubin, Direct, P 0.0 - 0.3 mg/dL <0.2 Aspartate Aminotransferase (AST), P 8 - 48 U/L 32 Alanine Aminotransferase (ALT), P 7 - 55 U/L 46 Alkaline Phosphatase, P 40 - 129 U/L 135 (H) Albumin, P 3.5 - 5.0 g/dL 3.9 Protein, Total, P 6.3 - 7.9 g/dL 6.6 Hemoglobin A1c, B 4.2 - 5.6 % 8.4 (H) Magnesium, P 1.7 - 2.3 mg/dL 1.8 ASSESSMENT / PLAN #1 Diabetes Mellitus Type 2 Without Complication (HCC); suboptimally controlled. PLAN: We reviewed his Hemoglobin A1c of 8.4% on 10/12/2020. Congratulated him on the improvement in his blood sugars but discussed that there is room for further improvement. He will increased his Lantus to 28 units at bedtime: - insulin glargine (Lantus U-100 Insulin) 100 unit/mL injection; Inject 28 Units under the skin at bedtime., Starting Fri10/20/2020, Normal He will continue on NovoLog 11 units under the skin three times daily. A Urine Albumin lab is ordered today: - Albumin, Random, Urine; Future; Expected date: 10/20/2020 The patient will be notified of the results when available. Encouraged ongoing efforts at aggressivelifestyle modifications including regular exercise [30 minutes per day; biking, walking, or using anexercise machine] and a healthy diet. I did offer a referral to a Physical Chemist which he declines. I also offered a referral to our Clinical Pharmacist [Zoya Lopez] for further recommendations regarding his diabetic control. - Pharmacy - Medication therapy management consult (clinic); Future; Expected date: 10/20/2020 (SemiUrg - F2F only) I appreciate her assistance. Continue to monitor blood sugars. I asked that he provide his blood sugar log for my review at our follow-up appointments. He is due for a diabetic eye examination and an Ophthalmology referral is placed today. - Ophthalmology - General consult (clinic); Future; Expected date: 10/20/2020 A repeat Hemoglobin A1c is ordered to be completed prior to our follow-up appointment. - Hemoglobin A1c; Standing #2 Hypertension Essential Primary; suboptimally controlled. PLAN: The patient's blood pressure is elevated at 146/70 mmHg today. I recommended he increase his Torsemide to 40 mg [two 20 mg tablets] by mouth daily. A new prescription is written today: - torsemide (DEMADEX) 20 mg tablet; Take 2 tablets (40 mg total) by mouth daily., Starting Fri10/20/2020, Normal Reviewed the way this medication works and possible side effects. Continue on Metoprolol succinate 50 mg by mouth daily, Hydralazine 25 mg by mouth daily. Continue to monitor blood pressure readings with a goal of <140/80 mmHg. A repeat BMP is ordered to be completed prior to our follow-up appointment in 1 month: - Basic Metabolic Panel; Future; Expected date: 10/27/2020 (Before next visit) #3 Failure Heart (HCC). 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 PLAN: Blood pressure is elevated today as above. Given the swelling he has in his lower extremities as well as weight gain, he will increase his Torsemide to 40 mg [two 20 mg tablets] by mouth daily asnoted above. Continue on Amiodarone 200 mg by mouth daily, Imdur 60 mg by mouth daily, Metoprolol succinate 50 mg by mouth daily, and Hydralazine 25 every 8 hours. Continue risk factor modifications. Discussed signs and symptoms that would prompt immediate re- evaluation. Continue to follow-up with Cardiology per their recommendations. His last echocardiogram on 04/17/2020 showed mildly enlarged left ventricular chamber size and EF of 42 %. He denies any increased shortness of breath or chest pain. Monitor daily weights. Notify me with any questions or concerns. #5 Hyperlipidemia; on statin therapy. PLAN: Continue on Lipitor 80 mg by mouth daily. Encouraged ongoing efforts at aggressive lifestyle modifications including regular exercise and a healthy diet. 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 PLAN: Continue to follow-up with Urology per their recommendations. ?? #7 Chronic Kidney Disease (CKD), Stage 3 Unspecified (HCC). PLAN: Stable. Creatinine of 1.7 on 10/12/2020 which is improved from 1.98 on 06/02/2020. Encouraged pushing fluids [greater than 64 ounces of water] and avoiding NSAID use. #8 Pancreatitis Chronic Recurrent (HCC); stable. PLAN: Continue to monitor. Discussed signs and symptoms that would prompt re-evaluation. #9 Healthcare Maintenance. PLAN: Reviewed colo-rectal screening. His last colonoscopy was on 08/19/2018. It has been recommended that he perform a colonoscopy every 2 years due to history of high risk polyps. He will return in 1month for a follow-up appointment at which time we will also perform a preoperative examination. Time spent was 51 minutes This document serves as a record of services personally performed by Shayla Alford D.O.. Itwas created on their behalf by Sarai Cason, a trained medical technologist chemistry. The creation of this recordis based on the scribe remotely listening to the visit and the provider's statements to them. This do cument has been checked and approved by the attending provider. Electronically signed by: Shayla Alford D.O. 10/20/20 2:11 PM PARTS SALES ADVISOR S SALES ADVISOR documented in this encounter Plan of Treatment Scheduled Orders Name Type Priority Associated Diagnoses Order S chedule Hemoglobin A1c Lab Routine Diabetes Mellitus Type 2 e very 3 months for 12 Hyperglycemia (HCC) Occurren brian starting 10/20/2020 unti l 10/20/2023, 1 c ompleted Scheduled Referrals Name Type Priority Associated Diagnoses Order S chedule Pharmacy - Outpatient Referral Routine Diabetes Mellitus Typ e Expected: Medication therapy 2 Hyperglycemia (HCC) 10/20/2020 management consult (Approxim ate), (clinic) Expires: 10/20/2023 Community Internal Outpatient Referral Routine Failure H eart (HCC) Expected: Medicine office Hypertension Essential visit (clinic) Primary (Approximate), Diabetes Mellitus Type Expir es: 2 Hyperglycemia (HCC) 10/20/2023 Pancreatitis Chronic Recurrent (HCC) documented as of this encounter Results (ABNORMAL) Hemoglobin A1c (10/27/2020 10:32 AM PARTS SALES ADVISOR) P athologist Signature Hemoglobin A1c, 8.4 (H) 4.2 - 5.6 10/27/2020 [facility] B % 11:22 AM PARTS SALES ADVISOR Comment: Hemoglobin A1c values greater than or eq ual to 6.5 percent are diagnostic for diabetes mellitus. ?? Diagnosis should be confirmed by repeat testing. ??In diabet ic patients, HbA1c goals should be discussed with healthcar e provider. Specimen Anatomical Collection Method Collection Time Receive d Time (Source) Location / / Volume Laterality Blood (Blood, 10/27/2020 10:32 10/27/2020 Venous) AM PARTS SALES ADVISOR 10:43 AM PARTS SALES ADVISOR Shayla Alford D.O. LAB BLOOD ADD-ON Performing Organization Address City/State/ZIP Code Phon e Number [facility]- [address] [place] [address] [facility] [place] [address] System in [place] [address] (ABNORMAL) Basic Metabolic Panel (10/27/2020 10:32 AM PARTS SALES ADVISOR) Analysis Performed At Patho logist Time Signature Potassium, P 4.5 3.6 - 5.2 10/27/2020 [facility] mmol/L 11:28 AM PARTS SALES ADVISOR Sodium, P 139 135 - 145 10/27/2020 [facility] mmol/L 11:28 AM PARTS SALES ADVISOR Chloride, P 103 98 - 107 10/27/2020 [facility] mmol/L 11:28 AM PARTS SALES ADVISOR Bicarbonate, P 26 22 - 29 10/27/2020 [facility] mmol/L 11:28 AM PARTS SALES ADVISOR Anion Gap, P 10 7 - 15 10/27/2020 [facility] 11:28 AM PARTS SALES ADVISOR BUN (Blood Urea 50 (H) 8 - 24 10/27/2020 [facility] Nitrogen), P mg/dL 11:28 AM PARTS SALES ADVISOR Creatinine 1.91 (H) 0.74 - 10/27/2020 [facility] 1.35 mg/dL 11:28 AM PARTS SALES ADVISOR eGFR-Black/Afri 38 (L) >=60 10/27/2020 [facility] can [place] mL/min/BSA 11:28 AM PARTS SALES ADVISOR Comment: ----ADDITIONAL INFORMATION---- Estimated GFR calculated using the 2009 CKD_EPI creatinine equation. eGFR Non-Black/ 33 (L) >=60 mL/min/BSA 10/27/2020 11:28 AM PARTS SALES ADVISOR [facility] [place] Comment: ----ADDITIONAL INFORMATION---- Estimated GFR calculated using the 2009 CKD_EPI creatinine equation. Calcium, Total, P 9.1 8.8 - 10.2 mg/dL 10/27/2020 11:2 8 AM PARTS SALES ADVISOR [facility] Glucose, P 141 (H) 70 - 140 mg/dL 10/27/2020 11:28 AM PARTS SALES ADVISOR [facility] Specimen Anatomical Collection Method Collection Time Receive d Time (Source) Location / / Volume Laterality Blood (Blood, 10/27/2020 10:32 10/27/2020 Venous) AM PARTS SALES ADVISOR 10:43 AM PARTS SALES ADVISOR Shayla Alford D.O. LAB BLOOD ADD-ON Performing Organization Address City/[facility]/ZIP Code Phon e Number [facility]- [address] [place] [address] [place] [address] System in [place] [address] (ABNORMAL) Albumin, Random, Urine (10/27/2020 10:32 AM PARTS SALES ADVISOR) [facility] gist Method Time Signature Microalbumin 124.0 mg/L 10/27/2020 [facility] 12:15 PM PARTS SALES ADVISOR Creatinine 26 mg/dL 10/27/2020 [facility] 11:30 AM PARTS SALES ADVISOR Albumin/Creatinin 477 (H) <17 mg/g 10/27/2020 [facility] e Ratio 12:15 PM PARTS SALES ADVISOR Specimen Anatomical Collection Method Collection Time Receive d Time (Source) Location / / Volume Laterality Urine (Urine, 10/27/2020 10:32 10/27/2020 Clean Catch) AM PARTS SALES ADVISOR 10:43 AM PARTS SALES ADVISOR Shayla Alford D.O. LAB URINE ORDERABLES Performing Organization Address City/[facility]/ZIP Code Phon e Number [facility]- [address] [place] [address] [facility] [place] [address] System in [place] [address] documented in this encounter Visit Diagnoses Diagnosis Diabetes Mellitus Type 2 Hyperglycemia ( HCC) - Primary Failure Heart (HCC) Hypertension Essential Primary Pancreatitis Chronic Recurrent (HCC) Hyperlipidemia Malignant Neoplasm Of Bladder Lateral Wa (HCC) Maintenance Health Adult documented in this encounter Additional Health Concerns Assessment Noted Time PHQ-9 Depression Total Score: 18 04/28/2018 11:27 AM C DT documented as of this encounter Care Teams Cigarette Making Machine Catcher Relationship Specialty Start Date End Date Shayla Alford D.O. PCP - General Internal Medicine 05/22/20 [address] [facility] [place] [address] documented as of this encounter
--- OUTSIDE RECORDS SUMMARY | 2022-05-21 11:24 | XMS_ITS | Encounter Summary ---
:1945 Author Organization [facility] Address [address] [place] [address] Care Team Providers Name Role Phone Shayla Alford D.O. Primary Care Provider [phone] Reason for Visit Reason Comments Care Coordination Monthly Billing- 2019 Encounter Details Date Type Department Care Team Description 09/28/2020 Patient Outreach Department of Westley Sommer Instructor [employer] rdination Internal Medicine in nShayla D .OMauro (Monthly Billing- Aug. [place], [place] [address] [place] [phone] Social History Tobacco Use Types Packs/Day Years [...] do you attend congregational or Never 2021 jehovah's witness services? Do [...] have completed or the highest Martin, MEd, COMMUNICATION CLERK, [employer]) degree you have received? Sex [...] documented as of this encounter Care Teams Accounts Payable Assistant Relationship Specialty Start Date End Date Shayla Alford D.O. PCP - General Internal Medicine 05/22/20 [address] [place] [phone] documented as of this encounter
--- OUTSIDE RECORDS SUMMARY | 2022-05-21 11:24 | XMS_ITS | Encounter Summary ---
:1945 Author Organization [facility] Address [address] [place] [address] Care Team Providers Name Role Phone Shayla Alford D.O. Primary Care Provider [phone] Encounter Details Date Type Department Care Team Description 11/13/2020 Orders Only [facility] PCP [facility] Sa neno Espinal M.D. [address] [place], [place] [phone] (Wo rk) Social History [...] do you attend sikhism or Never 2021 baptist services? Do you [...] have completed or the highest Martin, Sirena, SEGREGATOR, CAYDEN) degree you have received? Sex Assigned at Date Recorded Male 05/21/2018 2:34 PM CDT documented as of this encounter Plan of Treatment Not on filedocumented as of this encounter Visit Diagnoses Not on filedocumented in this encounter Additional Health Concerns Assessment Noted Time PHQ-9 Depression Total Score: 18 04/28/2018 11:27 AM C DT documented as of this encounter Care Teams Sterile Supervisor Relationship Specialty Start Date End Date Shayla Alford D.O. PCP - General Internal Medicine 05/22/[address] [phone] documented as of this encounter
--- OUTSIDE RECORDS SUMMARY | 2022-05-21 11:24 | XMS_ITS | Encounter Summary ---
:1945 Author Organization [facility] Address [address] [place] [address] Care Team Providers Name Role Phone Shayla Alford D.O. Primary Care Provider [phone] Reason for Visit MRI/CAT/PET Scan (Routine) - Closed Specialty Diagnoses / Procedures Referred By Contact Refer red To Contact Radiology Diagnoses Unsteadiness Gait Disorder Non Orthopedic Yen Buchanan M.D., [facility] [place] [facility] [place] Region Procedures MR Brain without IV Contrast MR Brain without and with IV Contrast MR Brain without IV Contrast UT MRI BRAIN WO CNTRST HC MRI BRAIN WO CNTRST UT MRI BRAIN WO/W CNTRST UT MRI BRAIN WO CNTRST M.B.A. [address] [place] [address] Referral ID Status Reason Start Date Expiration Date Visits Requ ested Visits Authorized [id number] Closed 09/13/2020 09/13/2021 1 1 Encounter Details Date Type Department Care Team Description 10/19/2020 Hospital Encounter Department of Chase Estse, Unsteadi ness Gait Radiology in [place] Non [place], [place] Pato, M.B.A. Orthopedic [address] [facility] [address] [place], [place] [phone] [address] Social History Tobacco Use Types Packs/Day [...] do you attend mu-ism or Never 2021 buddhist services? Do you [...] have completed or the highest Martin, MEd, ARTS AND HUMANITIES COUNCIL DIRECTOR, CAYDEN) degree you have received? Sex [...] by mouth tabletIndications: daily. 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 potassium chloride Take 10 mEq by mouth 0 020 11/08/2020 (KLORCON/K-TAB) 10 mEq ER daily with tablet breakfast. torsemide (DEMADEX) 20 mg 40 mg on Friday, 0 04/3010/20/2020 tablet Friday and Friday. 20 mg on Friday, and Friday. traZODone (DESYREL) 100 Take 1 tablet (100 30 tablet 1 0804/202002/22/2021 mg tablet mg total) by mouth at bedtime as needed for sleep. documented as of this encounter Plan of Treatment Not on filedocumented as of this encounter Procedures Procedure Name Priority Date/Time Associated Comments Diagnosis MR BRAIN WITHOUT RAD - Routine 10/19/2020 10:13 Unsteadiness Gait R esults for this IV CONTRAST (most inpatients AM SCANNING MANAGER Disorder Non procedure a re in and all Orthopedic the results outpatients) section. documented in this encounter Results MR Brain without IV Contrast (10/19/2020 10:13 AM SCANNING MANAGER) Anatomical Region Laterality Modality Head, Brain, Neuroradiology RST LOS, Neuroradiology ARZ N/A Magnetic Resonance LOS, Neuroradiology FLA LOS Specimen (Source) Anatomical Collection Method Collection Time Re ceived Time Location / / Volume Laterality 10/19/2020 12:52 PM SCANNING MANAGER Impressions 10/19/2020 1:03 PM SCANNING MANAGER 1. No acute infarct. No new finding to explain clinical presentation. 2. New right ostiomeatal complex pattern sinus obstruction with fluid in the right frontal sinus, anterior ethmoid ai r cells right maxillary sinus. Direct visualization suggested to exclude obstr ucting lesion. Narrative 10/19/2020 1:03 PM SCANNING MANAGER EXAM: MR BRAIN WITHOUT IV CONTRAST COMPARISON: 09/17/2017 FINDINGS: Mild/moderate generalized supr atentorial and infratentorial volume loss with ex vacuo dilation of ventricle s. Patchy T2 hyperintensities compatible with whmn-tz-zcgrkyvj leukoaraiosis. Pos toperative change both globes. Chronic lacunar infarct right cerebellar hemisph ere. Chronic infarct left paramedian hussein (series 7, image 15). Right ostiomeatal complex pattern sinus obstruction with fluid in the right frontal sinus, right maxillary sinus, an terior ethmoid air cells. Mucous retention cyst left maxillary sinus. Patient experienced emesis with prior ga dolinium administration; contrast was not administered. Procedure Note Dong Spring M.D. - 10/19/2020Formatt ing of this note might be different from the original. EXAM: MR BRAIN WITHOUT IV CONTRAST COMPARISON: 09/17/2017 FINDINGS: Mild/moderate generalized supr atentorial and infratentorial volume loss with ex vacuo dilation of ventricle s. Patchy T2 hyperintensities compatible with kbsg-wh-eientcrx leukoaraiosis. Pos toperative change both globes. Chronic lacunar infarct right cerebellar hemisph ere. Chronic infarct left paramedian hussein (series 7, image 15). Right ostiomeatal complex pattern sinus obstruction with fluid in the right frontal sinus, right maxillary sinus, an terior ethmoid air cells. Mucous retention cyst left maxillary sinus. Patient experienced emesis with prior ga dolinium administration; contrast was not administered. IMPRESSION: 1. No acute infarct. No new finding to e xplain clinical presentation. 2. New right ostiomeatal complex pattern sinus obstruction with fluid in the right frontal sinus, anterior ethmoid ai r cells right maxillary sinus. Direct visualization suggested to exclude obstr ucting lesion. Yen Buchanan M.D., M.B.A. IMG MRI PROCEDURES documented in this encounter Visit Diagnoses Diagnosis Unsteadiness Gait Disorder Non Orthopedi c documented in this encounter Additional Health Concerns Assessment Noted Time PHQ-9 Depression Total Score: 18 04/28/2018 11:27 AM C DT documented as of this encounter Care Teams Cancellation Clerk Relationship Specialty Start Date End Date Shayla Alford D.O. PCP - General Internal Medicine 05/22/[address] [address] documented as of this encounter
--- OUTSIDE RECORDS SUMMARY | 2022-05-21 11:24 | XMS_ITS | Encounter Summary ---
:1945 Author Organization [facility] Address [address] [place] [address] Care Team Providers Name Role Phone Shayla Alford D.O. Primary Care Provider [phone] Encounter Details Date Type Department Care Team Description 10/12/2020 Hospital Encounter Department of [place] Diabet es Mellitus Laboratory Medicine n, Gianna Mcguire Type 2 Without in [place], [address] Complication (H CC) [address] [place] [phone] Social History Tobacco Use [...] do you attend hoahaoism or Never 2021 lutheran services? Do you [...] have completed or the highest Martin, MEd, SERVICES MANAGER, CAYDEN) degree you have received? Sex [...] by mouth tabletIndications: daily. 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 documented in this encounter Results (ABNORMAL) Hemoglobin A1c (10/12/2020 9:15 AM NET APPLICATION SUPPORT SPECIALIST) P athologist Signature Hemoglobin A1c, 8.4 (H) 4.2 - 5.6 10/12/2020 OWAT B % 9:44 AM NET APPLICATION SUPPORT SPECIALIST Comment: Hemoglobin A1c values greater than or eq ual to 6.5 percent are diagnostic for diabetes mellitus. ?? Diagnosis should be confirmed by repeat testing. ??In diabet ic patients, HbA1c goals should be discussed with healthcar e provider. Specimen Anatomical Collection Method Collection Time Receive d Time (Source) Location / / Volume Laterality Blood (Blood, 10/12/2020 9:15 AM 10/12/19 9:27 Venous) NET APPLICATION SUPPORT SPECIALIST AM NET APPLICATION SUPPORT SPECIALIST Shayla Alford D.O. LAB BLOOD ADD-ON Performing Organization Address City/State/ZIP Code Phon e Number [facility] [address] [place] [address] [place] [address] System in [place] [address] documented in this encounter Visit Diagnoses Diagnosis Diabetes Mellitus Type 2 Without Complic ation (HCC) documented in this encounter Additional Health Concerns Assessment Noted Time PHQ-9 Depression Total Score: 18 04/28/2018 11:27 AM C DT documented as of this encounter Care Teams Mechanic Helper Relationship Specialty Start Date End Date Shayla Alford D.O. PCP - General Internal Medicine 05/22/[address] [phone] documented as of this encounter
--- OUTSIDE RECORDS SUMMARY | 2022-05-21 11:24 | XMS_ITS | Encounter Summary ---
:1945 Author Organization [facility] Address [address] [place] [address] Care Team Providers Name Role Phone Shayla Alford.Sabrina Primary Care Provider [phone] Reason for Visit Reason Comments COVID Inquiry Encounter Details Date Type Department Care Team Description 09/13/2020 Clinical Communication Department of Internal Andrei Dejesus COVID Inquiry Medicine in [facility] Shayla, D .OMauro [place] [address] [place] [phone] Social History Tobacco Use [...] do you attend yarsani or Never 2021 roman catholic services? Do [...] have completed or the highest Martin, MEd, ACCOUNTS OFFICER, CAYDEN) degree you have received? Sex Assigned at Date Recorded Male 05/21/2018 2:34 PM CDT documented as of this encounter Miscellaneous Notes Telephone Encounter - Tino Eid - 09/13/2020 9:35 AM CST What is the purpose of the call?: Standard Appointment Process Standard Appointment Process Have you tested positive for COVID-19 in the last 20 days OR do you have a pending COVID-19 test because you had symptoms?: No, neither apply What region is the appointment being requested?: Less than 20 days RST, [facility] or [facility] In the past 14 days are any of the following symptoms new to you and not related to an existing health condition?: No symptoms noted In the past 14 days have you had close contact* with a person who has a LABORATORY CONFIRMED case ofCOVID-19?: No exposure noted, follow appt process (End Screening) Testing Recommendation Endpoint Is testing recommended? : Not recommended to test Plan: Endpoint recommendation: Followed regional OTG *Reminder if sending patient for testing in [facility] or [facility], route encounter to the correct testing pool. STUDY STATISTICIAN documented in this encounter Plan of Treatment Not on filedocumented as of this encounter Visit Diagnoses Not on filedocumented in this encounter Additional Health Concerns Assessment Noted Time PHQ-9 Depression Total Score: 18 04/28/2018 11:27 AM C DT documented as of this encounter Care Teams Last Sorter Relationship Specialty Start Date End Date Shayla Alford D.O. PCP - General Internal Medicine 05/22/[address] [phone] documented as of this encounter
--- OUTSIDE RECORDS SUMMARY | 2022-05-21 11:24 | XMS_ITS | Encounter Summary ---
:1945 Author Organization [facility] Address [address] [place] [address] Care Team Providers Name Role Phone Shayla Alford D.O. Primary Care Provider [phone] Reason for Visit Outpatient (Routine) - Closed Specialty Diagnoses / Procedures Referred By Contact Refer red To Contact Pharmacy Diagnoses Diabetes Mellitus Type 2 Hyperglycemia (HCC) Shayla Alford [facility] [address] DMauroOMa[facility] [address], [place] [address] Referral ID Status Reason Start Date Expiration Date Visits Requ ested Visits Authorized [id number] Closed 10/20/2020 10/20/2021 1 1 Encounter Details Date Type Department Care Team Description 11/08/2020 Office Visit Department of Family Shayla Murillo D.O. [address], [place] [address] Diabetes Mellitus Type 2 Hyperglycemia ( HCC) (Primary Dx); Medicine in Alysha Lu, Pharm.DMauro [address], [place] [address] Medication Management Issue [place], [place] [address] [place] [phone] Social History Tobacco Use Types Packs/Day [...] do you attend mu-ism or Never 2021 holiness services? Do you [...] have completed or the highest Martin, MEd, LAYOUT INSPECTOR, CAYDEN) degree you have received? Sex Assigned at Date Recorded Male 05/21/2018 2:34 PM CDT documented as of this encounter Patient Instructions Patient InstructionsAlysha Lu, Pharm.D. - 11/08/2020 1:15 PM CST Clinical Pharmacy Consult - Follow-up Care Instructions 1. Continue taking Lantus and Novolog with current insulin doses 2. Continue checking blood sugar readings 4-5 times daily WRITE DOWN blood sugar readings, approx time, insulin doses (Novolog) BRING continuous glucose monitor to next appointment (Check on expiration date and get new meter from [place] if ) Follow-up in 2-3 weeks for glucose review Alysha Lopez Pharm.D. Clinical Pharmacist 11/08/2020 K LINE YARDER documented in this encounter Consult Notes Alysha Lu Pharm.D. - 11/08/2020 1:15 PM CST Medication Therapy Management SUBJECTIVE Jonnathan Costa is a 75 y.o. male, who is seen today by [facility] Pharmacist for targeted medicationreview of diabetes. He was referred by Shayla Alford D.O. for pharmacist management of diabetes as outlined in thtw-oi-vlpn/video encounter on 10/20/2020. Patient was at the visit with patient's significant other (). The patient does not appear cognitively impaired at this visit. Patient???s purpose of visit today is discussing glucose control. Diabetes: Patient does experience symptoms of hyperglycemia including: fatigue and weakness. Patient reports experiencing hypoglycemic events: less than once a month. Patient is able to detect hypoglycemic events and reports the following hypoglycemic symptoms: confusion, dizziness, headaches and sweating. Patient reports no complications of hypoglycemia. Patient treats hypoglycemia based on s ymptoms and patient does not recheck blood glucose after treating hypoglycemia. Patient does not carry anything to treat hypoglycemic events. Typical dietary habits include eating multiple meals/snacks throughout the day with a consistent evening meal. Patient does self-monitor glucose readings the following times of the day: fasting, before meals andbedtime. Glucose readings: 60-300+ mg/dL (patient reported). Medication Adherence: Medication reconciliation was accomplished by review of all prescription medications, temg-kwi-jijoqdj medications and vitamin and supplements from patient's home medication list, patient's memory and electronic health record (EHR) medication list. These were reviewed and reconciled with the patient and patient's significant other. Patient uses the following medication adherence strategies: pill box three times daily managed by . He takes medications at the following times of day: morning, noon and evening. Patient does NOT express concern regarding the convenience of the medication regimen including medication burden, timing of medications and pill size. Patient reports missing a dose of medication less than once per month. The following portions of the patient's history were reviewed and updated as appropriate: allergies,current medications, family history, medical history, social history, surgical history and problem list. Pertinent patient lifestyle habits, preferences and beliefs, health and functional goals, health literacy, cultural factors and socioeconomic factors were assessed at this appointment with no concerns noted. OBJECTIVE Wt Readings from Last 3 Encounters: 10/20/20 99.2 kg 10/12/20 99.2 kg 09/13/20 97.7 kg Pulse Readings from Last 3 Encounters: 10/20/20 (!) 52 10/12/20 (!) 50 09/13/20 (!) 51 BP Readings from Last 3 Encounters: 10/20/20 146/70 10/12/20 153/60 09/13/20 136/66 Albumin/Creatinine Ratio Date Value Ref Range Status 10/27/2020 477 (H) <17 mg/g Final Lab Results Component Value Date CHOL 133 04/12/2020 CHOL 172 10/20/2019 CHOL 193 04/28/2018 Lab Results Component Value Date HDL 27 (L) 04/12/2020 HDL 35 (L) 10/20/2019 HDL 33 (L) 04/28/2018 Lab Results Component Value Date LDLCALC 71 04/12/2020 LDLCALC 94 10/20/2019 LDLCALC CANCELED 04/28/2018 Lab Results Component Value Date TRIG 176 (H) 04/12/2020 TRIG 214 (H) 10/20/2019 TRIG 402 (H) 04/28/2018 Lab Results Component Value Date TTLCHOLHDLRT 8.00 02/27/2017 TTLCHOLHDLRT 6.00 08/02/2015 TTLCHOLHDLRT 5.83 05/25/2015 Lab Results Component Value Date TSH 7.3 (H) 07/01/2020 Lab Results Component Value Date HGBA1C 8.4 (H) 10/27/2020 HGBA1C 8.4 (H) 10/12/2020 HGBA1C 8.0 (H) 07/01/2020 Lab Results Component Value Date NA 139 10/27/2020 KSERUM 4.0 05/06/2020 KPLASMA 4.5 10/27/2020 CL 103 10/27/2020 BICARB 26 10/27/2020 CREATININE 1.91 (H) 10/27/2020 EGFRNONBLKAA 33 (L) 10/27/2020 EGFRBLKAA 38 (L) 10/27/2020 BUN 50 (H) 10/27/2020 ANIONGAP 10 10/27/2020 GLUCOSE 141 (H) 10/27/2020 CALCIUM 9.1 10/27/2020 Lab Results Component Value Date ALT 46 10/12/2020 AST 32 10/12/2020 ALKPHOS 135 (H) 10/12/2020 BILITOT 0.5 10/12/2020 Estimated Creatinine Clearance: 45.4 mL/min (A) (by C-G formula based on SCr of 1.91 mg/dL (H)). ASSESSMENT / PLAN Assessment: Pharmacotherapy was reviewed today with a patient-centered approach for indication, effectiveness, safety and convenience, taking into account pertinent health and functional status, risk factors, health data, cultural factors, health literacy and access to medications. Medication list discrepancies: Medication list is up to date with the following notable discrepancies: Patient reports he has not been utilizing potassium for significant period of time; medication removed. Medication adherence: Estimated adherence level is variable. Renal/hepatic dosing: Medications are appropriately dosed based on current renal and hepatic function. Drug-drug interactions: Drug-Drug interactions of potential clinical significance include: Amiodarone/escitalopram/trazodone-potential for QT interval prolongation and life-threatening cardiac arrhythmias; most recent ECG finds no concerns of arrhythmias or QT interval prolongation. metoprolol/hydralazine/amiodarone-increased risk for bradycardia and hypotension; patient denies any signs or symptoms of bradycardia or hypotension during today's appointment. Atorvastatin/amiodarone-increased risk of rh abdomyolysis; patient denies any signs symptoms of rhabdomyolysis during today's appointment. Escitalopram/clopidogrel-increased risk for bleeding; patient reports no significant concerns regarding bruising or bleeding during today's appointment. . Drug-disease interactions: Did not identify drug-disease interactions of clinical significance. 1. Diabetes: Patient has Type 2 Diabetes that is uncontrolled on current therapy of Lantus 28 units once daily and NovoLog 6-28 units with meals. Patient???s most recent A1C was above goal of less than7.5% and glucose readings are not available with goal of fasting 80-130 mg/dL, premeal 90-150 mg/dL and 2 hour post-prandial less than 180 mg/dL. Patient reports that his blood glucose readings fluctuate significantly throughout the day and this is likely related to his dietary intake being so very. Patient reports that he typically eats multiple meals/snacks throughout the day and does not have a consistent meal schedule. Patient's indicates that they do routinely eat an evening meal. Patient reports he is unable to indicate how much NovoLog insulin he is taking as it largely depends on his blood glucose readings, how much insulin he is taking during the day, with food he is eating in his general feeling of well- being. Discussed with patient that in order to make proper insulin dose adjustme nts to improved glucose control we do need to obtain information regarding his blood glucose readings and how much insulin he is using. Patient is agreement to write down his blood glucose readings andamount of NovoLog insulin he is taking every day to make further insulin dose adjustments. Patient does report that he consistently utilizes the same dose of Lantus every day. Discussed with patient the [facility] and [facility] to make medication dose adjustments going forward easier. Patient is in agreement with that plan. Will plan on following up with patient in 3 weeks to assess glucose readings and potential dose adjustments. Patient???s ggbgO9D is due on December 2020. Plan: The following action(s) were taken under the authority of the collaborative practice agreement with patient's primary care provider unless otherwise noted. 1. Recommend continuing Lantus 28 units once daily and NovoLog dosed based on blood glucose readingsand dietary intake. 2. Recommend that patient continues to monitor blood glucose readings 4-5 times daily. Patient to focus on writing down blood glucose readings in addition to amount of NovoLog insulin he is currently utilizing. 3. Recommend that [facility] works with [facility] to [facility] a new continuous glucose monitor to assist with insulin dosing adjustments. Follow-up with pharmacist in three weeks by Face to Face for glucose assessment and insulin dose adjustments. Jonnathan expressed understanding of, and agreement with plan of care. He was provided with a written summary of these recommendations. Total time spent was 60 minutes, with more than 50% of the time spent on counseling, coordination ofcare and patient education. Plan of care was communicated to the referring provider via an electronically routed chart. K LINE YARDER documented in this encounter Plan of Treatment Not on filedocumented as of this encounter Visit Diagnoses Diagnosis Diabetes Mellitus Type 2 Hyperglycemia ( HCC) - Primary Medication Management Issue documented in this encounter Additional Health Concerns Assessment Noted Time PHQ-9 Depression Total Score: 18 04/28/2018 11:27 AM C DT documented as of this encounter Care Teams Band Tacker Relationship Specialty Start Date End Date Shayla Alford D.O. PCP - General Internal Medicine 05/22/[address] [address] documented as of this encounter
--- OUTSIDE RECORDS SUMMARY | 2022-05-21 11:24 | XMS_ITS | Encounter Summary ---
:1945 Author Organization [facility] Address [address] [place] [address] Care Team Providers Name Role Phone Shayla Alford D.OMauro Primary Care Provider [phone] Encounter Details Date Type Department Care Team Description 10/27/2020 Hospital Encounter Department of Alexys Diabete s Mellitus Type Laboratory Medicine Shayla queen, 2 Hyperg lycemia (HCC) in [facility] [address] [place] [phone] Social History Tobacco Use Types Packs/Day [...] do you attend restorationist or Never 2021 zoroastrian services? Do you [...] have completed or the highest Martin, MEd, SPORTING GOODS SALESPERSON, CAYDEN) degree you have received? Sex [...] by mouth tabletIndications: daily. 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 torsemide (DEMADEX) 20 mg Take 2 tablets [...] Name Priority Date/Time Associated Diagnosis Comme nts ALBUMIN, RANDOM, U Routine 10/27/2020 10:32 Diabetes Mellitus Type Results for this AM COMPUTER NETWORKER 2 Hyperglycemia (HCC) proced ure are in the results section. documented in this encounter Results (ABNORMAL) Albumin, Random, Urine (10/27/2020 10:32 AM COMPUTER NETWORKER) [facility] gist Method Time Signature Microalbumin 124.0 mg/L 10/27/2020 [place] 12:15 PM COMPUTER NETWORKER Creatinine 26 mg/dL 10/27/2020 [place] 11:30 AM COMPUTER NETWORKER Albumin/Creatinin 477 (H) <17 mg/g 10/27/2020 [place] e Ratio 12:15 PM COMPUTER NETWORKER Specimen Anatomical Collection Method Collection Time Receive d Time (Source) Location / / Volume Laterality Urine (Urine, 10/27/2020 10:32 10/27/2020 Clean Catch) AM COMPUTER NETWORKER 10:43 AM COMPUTER NETWORKER Shayla Alford D.O. LAB URINE ORDERABLES Performing Organization Address City/State/ZIP Code Phon e Number [facility] [address] [place] [address] [place] [address] System in [place] [address] documented in this encounter Visit Diagnoses Diagnosis Diabetes Mellitus Type 2 Hyperglycemia ( HCC) documented in this encounter Additional Health Concerns Assessment Noted Time PHQ-9 Depression Total Score: 18 04/28/2018 11:27 AM Anna Marie BROUSSARD documented as of this encounter Care Teams Phone Banker Relationship Specialty Start Date End Date Shayla Alford D.O. PCP - General Internal Medicine 05/22/[address] [phone] documented as of this encounter
--- OUTSIDE RECORDS SUMMARY | 2022-05-21 11:24 | XMS_ITS | Encounter Summary ---
:1945 Author Organization [facility] Address [address] [place] [address] Care Team Providers Name Role Phone Shayla Alford D.O. Primary Care Provider [phone] Encounter Details Date Type Department Care Team Description 10/27/2020 Hospital Encounter Department of Alexys Failure Heart (HCC); Laboratory Medicine Shayla queen Hyperten sion Essential Primary; in [place] Diabetes Mellitus Type 2 Hyperglycemia ( HCC) [place] [address] [place] [phone] Social History Tobacco Use Types Packs/Day Years [...] do you attend gnosticism or Never 2021 temple services? Do you [...] have completed or the highest Martin, MEd, MATERIAL REQUIREMENTS PLANNING MANAGER, CAYDEN) degree you have received? Sex [...] daily SYRINGE-NEEDLE,INSULIN,0. 0 5 ML (INSULIN SYRINGE [facility]) amiodarone (PACERONE) 200 Take 200 mg by [...] by mouth tabletIndications: daily. 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 - 11/01/2020 10:17 AM GEOMAGNETIST Please call patient following information. Potassium and sodium levels look good. Calcium level looks normal. Your kidney function is diminished, but remains stable compared to 5 months ago. Unfortunately, your A1c has not changed much and is still at 8.4. Continue working on diet exercise and staying in touch with us and scheduling pharmacy re ferral as discussed for diabetes monitoring . Please assist the patient in scheduling appointment with pharmacy as discussed on my visit with him on 10/20/2020 Electronically signed by: Shayla Alford D.O. 11/01/20 10:16 AM GEOMAGNETIST AGNETIST documented in this encounter Plan of Treatment Not on filedocumented as of this encounter Procedures Procedure Name Priority Date/Time Associated Diagnosis Comme nts HEMOGLOBIN A1C, B Routine 10/27/2020 10:32 Diabetes Mellitus T ype Results for this AM GEOMAGNETIST 2 Hyperglycemia (HCC) proced ure are in the results section. BASIC METABOLIC Routine 10/27/2020 10:32 Failure Heart ( HCC) Results for this PANEL, S/P AM GEOMAGNETIST Hypertension Essential proce dure are in Primary the results section. documented in this encounter Results (ABNORMAL) Hemoglobin A1c (10/27/2020 10:32 AM GEOMAGNETIST) P athologist Signature Hemoglobin A1c, 8.4 (H) 4.2 - 5.6 10/27/2020 [place] B % 11:22 AM GEOMAGNETIST Comment: Hemoglobin A1c values greater than or eq ual to 6.5 percent are diagnostic for diabetes mellitus. ?? Diagnosis should be confirmed by repeat testing. ??In diabet ic patients, HbA1c goals should be discussed with healthcar e provider. Specimen Anatomical Collection Method Collection Time Receive d Time (Source) Location / / Volume Laterality Blood (Blood, 10/27/2020 10:32 10/27/2020 Venous) AM GEOMAGNETIST 10:43 AM GEOMAGNETIST Shayla Alford D.O. LAB BLOOD ADD-ON Performing Organization Address City/State/ZIP Code Phon e Number [facility]- [address] [place] [address] [place] [address] System in [place] [address] (ABNORMAL) Basic Metabolic Panel (10/27/2020 10:32 AM GEOMAGNETIST) Analysis Performed At Patho logist Time Signature Potassium, P 4.5 3.6 - 5.2 10/27/2020 [place] mmol/L 11:28 AM GEOMAGNETIST Sodium, P 139 135 - 145 10/27/2020 [place] mmol/L 11:28 AM GEOMAGNETIST Chloride, P 103 98 - 107 10/27/2020 [place] mmol/L 11:28 AM GEOMAGNETIST Bicarbonate, P 26 22 - 29 10/27/2020 [place] mmol/L 11:28 AM GEOMAGNETIST Anion Gap, P 10 7 - 15 10/27/2020 [place] 11:28 AM GEOMAGNETIST BUN (Blood Urea 50 (H) 8 - 24 10/27/2020 [place] Nitrogen), P mg/dL 11:28 AM GEOMAGNETIST Creatinine 1.91 (H) 0.74 - 10/27/2020 [place] 1.35 mg/dL 11:28 AM GEOMAGNETIST eGFR-Black/Afri 38 (L) >=60 10/27/2020 [place] can English mL/min/BSA 11:28 AM GEOMAGNETIST Comment: ----ADDITIONAL INFORMATION---- Estimated GFR calculated using the 2009 CKD_EPI creatinine equation. eGFR Non-Black/ 33 (L) >=60 mL/min/BSA 10/27/2020 11:28 AM GEOMAGNETIST [place] English Comment: ----ADDITIONAL INFORMATION---- Estimated GFR calculated using the 2009 CKD_EPI creatinine equation. Calcium, Total, P 9.1 8.8 - 10.2 mg/dL 10/27/2020 11:2 8 AM GEOMAGNETIST [place] Glucose, P 141 (H) 70 - 140 mg/dL 10/27/2020 11:28 AM GEOMAGNETIST [place] Specimen Anatomical Collection Method Collection Time Receive d Time (Source) Location / / Volume Laterality Blood (Blood, 10/27/2020 10:32 10/27/2020 Venous) AM GEOMAGNETIST 10:43 AM GEOMAGNETIST Shayla Alford D.O. LAB BLOOD ADD-ON Performing Organization Address City/State/ZIP Code Phon e Number [facility] [address] [place] [address] [facility] [place] [address] System in [place] [address] documented in this encounter Visit Diagnoses Diagnosis Failure Heart (HCC) Hypertension Essential Primary Diabetes Mellitus Type 2 Hyperglycemia ( HCC) documented in this encounter Additional Health Concerns Assessment Noted Time PHQ-9 Depression Total Score: 18 04/28/2018 11:27 AM C DT documented as of this encounter Care Teams Plastics Fabricator Or Welder Relationship Specialty Start Date End Date Shayla Alford D.O. PCP - General Internal Medicine 05/22/[address] [place] [phone] documented as of this encounter
--- OUTSIDE RECORDS SUMMARY | 2022-05-21 11:24 | XMS_ITS | Encounter Summary ---
:1945 Author Organization [facility] Address [address] [place] [address] Care Team Providers Name Role Phone Shayla Alford D.O. Primary Care Provider [phone] Encounter Details Date Type Department Care Team Description 10/19/2020 Hospital Encounter Department of [facility], [facility] Heart ([facility]) Laboratory Medicine laron Barlow M.D., M.B.A. [place] [address] [facility] [place] [phone] Social History Tobacco Use [...] or relatives? How often do you attend alevism or Never 2021 anglican services? Do you belong to any clubs or No 10/09/2021 organizations such as alevism groups, unions, fra46elks or athletic groups, or school groups? How [...] have completed or the highest Martin, MEd, RUBBER VULCANIZING MACHINE OPERATOR, CAYDEN) degree you have received? [...] by mouth tabletIndications: daily. 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 documented in this encounter Results Magnesium (10/19/2020 9:00 AM KNITTED GOODS SHAPER) P athologist Signature Magnesium, P 1.8 1.7 - 2.3 10/19/2020 [place] mg/dL 10:08 AM KNITTED GOODS SHAPER Specimen Anatomical Collection Method Collection Time Receive d Time (Source) Location / / Volume Laterality Blood (Blood, 10/19/2020 9:00 AM 10/19/19 9:03 Venous) KNITTED GOODS SHAPER AM KNITTED GOODS SHAPER Yen Buchanan M.D., M.B.A. LAB BLOOD ADD-ON Performing Organization Address City/State/ZIP Code Phon e Number [facility] [address] [place] [address] [facility] [place] [address] System in [place] [address] documented in this encounter Visit Diagnoses Diagnosis Failure Heart (HCC) documented in this encounter Additional Health Concerns Assessment Noted Time PHQ-9 Depression Total Score: 18 04/28/2018 11:27 AM C DT documented as of this encounter Care Teams Railroad Accountant Relationship Specialty Start Date End Date Bakkali-Derksen, Salwa, D.O. PCP - General Internal Medicine 05/22/202199 [address] [facility] [place] [phone] documented as of this encounter
--- OUTSIDE RECORDS SUMMARY | 2022-05-21 11:24 | XMS_ITS | Encounter Summary ---
:1945 Author Organization [facility] Address [address] [place] [address] Care Team Providers Name Role Phone Shayla Alford D.O. Primary Care Provider [phone] Reason for Referral Outpatient (Routine) - Closed Specialty Diagnoses / Procedures Referred By Contact Refer red To Contact Diagnoses Chronic Systolic (Congestive) Heart Failure (HCC) Manuel Evans M.D. [facility] Procedures ECG Heart rhythm monitor (Holter) [address] [place] [address] Referral ID Status Reason Start Date Expiration Date Visits Requ ested Visits Authorized [id number] Closed 11/17/2020 11/17/2021 1 1 SROOM TECHNOLOGY TECHNICIAN Reason for Visit Outpatient (Routine) - Closed Specialty Diagnoses / Procedures Referred By Contact Refer red To Contact Cardiovascular Disease Diagnoses Chronic Systolic (Congestive) Heart Failure (HCC) Manuel Evans [facility] Felicita Whyte [address] [place] [address] Referral ID Status Reason Start Date Expiration Date Visits Requ ested Visits Authorized [id number] Closed 06/06/2020 06/06/2021 1 1 Encounter Details Date Type Department Care Team Description 11/17/2020 Office Visit Department of Manuel Evans Sy stolic (Congestive) Heart Failure (HCC) (Primary Dx); Cardiovascular Medicine Pato Barber Hypertension Essential Primary; in [facility] pelota maker [address] Beat Premature Ventricular; [address] [place], [place] [phone] Social History Tobacco Use Types Packs/Day Years [...] do you attend episcopal or Never 2021 adventism services? Do you [...] have completed or the highest Martin, MEd, CALCINE FURNACE LOADER, CAYDEN) degree you have received? Sex Assigned at Date Recorded Male 05/21/2018 2:34 PM CDT documented as of this encounter Last Filed Vital Signs Vital Sign Reading Time Taken Comments Blood Pressure 148/75 11/17/2020 2:22 PM CLASSROOM TECHNOLOGY TECHNICIAN Pulse 50 11/17/2020 2:22 PM CLASSROOM TECHNOLOGY TECHNICIAN Temperature - - Respiratory Rate - - Oxygen Saturation - - Inhaled Oxygen Concentration - - Weight 97.6 kg (215 lb 2.7 oz) 11/17/2020 2:22 PM CLASSROOM TECHNOLOGY TECHNICIAN Height 188 cm (6' 2.02) 11/17/2020 2:22 PM CLASSROOM TECHNOLOGY TECHNICIAN Body Mass Index 27.61 11/17/2020 2:22 PM CLASSROOM TECHNOLOGY TECHNICIAN documented in this encounter Consult Notes Manuel Evans M.D. - 11/17/2020 3:00 PM CST SUBJECTIVE CHIEF COMPLAINT / REASON FOR VISIT Follow-up regarding nonischemic cardiomyopathy and frequent PVC's ?? HISTORY OF PRESENT ILLNESS reports some increasing fatigue. He naps frequently and also feels a bit unsteady on his feet. He is able to climb a flight of stairs without difficulty. He lives a sedentary lifestyle. He does not endorse any PND or orthopnea. He has untreated sleep apnea and does not tolerate CPAP. He avoids sleeping on his back. He has not been aware of any tachy palpitations and denies any syncope or presyncope. Stable weight readings without problematic edema. Blood pressure and heart rates have been stable with frequent heart rates in the 50s. Current Outpatient Medications: ??? albuterol inhaler, INHALE 2 PUFFS BY INHALATION EVERY 6 HOURS NEEDED FOR SHORTNESS OF BREATHSHAKE WELL (FOR IMMEDIATE RELIEF)., Disp: , Rfl: ??? amiodarone (PACERONE) 200 mg tablet, Take 200 mg by mouth daily., Disp: , Rfl: ??? atorvastatin (for_LIPITOR) 80 mg tablet, Take 80 mg by mouth daily. 1 tablet daily (as directed after hospital DC on 04/30/20) , Disp: , Rfl: ??? blood sugar diagnostic (ACCU-CHEK MIHAI PLUS TEST STRP) strips, , Disp: , Rfl: ??? budesonide-formoteroL (SYMBICORT) [...] day with meals. Hold if not eating. ), Disp: , Rfl: ??? insulin glargine (Lantus U-100 Insulin) 100 unit/mL injection, Inject 28 Units under the skin atbedtime., Disp: 10 mL, Rfl: 12 ??? isosorbide [...] 4 times daily, Disp: , Rfl: ??? polyethylene glycol (MIRALAX) 17 gram powder packet, Take 1 packet (17 g total) by mouth daily. Dissolve each 17 g dose in 240 mLs (8 ounces) of beverage., Disp: 30 packet, Rfl: 3 ??? SYRINGE-NEEDLE,INSULIN,0.5 ML (INSULIN SYRINGE MISC), , Disp: , Rfl: ??? torsemide (DEMADEX) 20 mg tablet, Take 2 tablets (40 mg total) by mouth daily., Disp: 60 tablet,Rfl: 3 ??? traZODone (DESYREL) 100 mg tablet, Take 1 tablet (100 mg total) by mouth at bedtime as needed for sleep., Disp: 30 tablet, Rfl: 1 ??? levothyroxine (SYNTHROID, LEVOTHROID) 50 mcg tablet, Take 1 tablet (50 mcg total) by mouth everymorning before breakfast., Disp: 90 tablet, Rfl: 3 No current facility-administered medications for this visit. Facility-Administered Medications Ordered in Other Visits: ??? sodium chloride 0.9 % injection 10 mL, 10 mL, intravenous, PRN, Manuel Evans M.D. ??? sulfur hexafluoride microspheres injection (LUMASON), , intravenous, PRN, Manuel Evans M.D., 1.6 mL at 11/17/20 1153 OBJECTIVE Blood Pressure: (148)/(75) 148/75 Pulse Rate: [50] 50 PHYSICAL EXAMINATION General: He looks well in no acute distress, gets today examining table rather slowly Heart: Normal JVP, regular rhythm without appreciable murmur or gallop, quiet precordium Lungs: Clear Abdomen: Soft nondistended no visceromegaly or ascites Extremities: Warm without edema or cyanosis DIAGNOSTIC REVIEW All labs and diagnostic studies were reviewed. Hemoglobin 10.2, creatinine 1.86, NT proBNP 2558, TSH19.4, echocardiogram documents mild to moderate LV enlargement EF 50%. Elevated RVSP 45. Mitral valve disease with [id number] stenosis. ?? ASSESSMENT / PLAN #1 Chronic Systolic (Congestive) Heart Failure (HCC) #2 Hypertension Essential Primary #3 Beat Premature Ventricular #4 Hypothyroidism His anemia is chronic. 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 Total thyroxine order. I will start levothyroxine 50 mcg daily. Consider discontinuation or reduction in amiodarone therapy. I will place another 24 hour Holter to see how much ectopy we are seen. It is en couraging to see improvement in cardiac function compared to the echocardiogram last March. I think his own pretty optimal medical therapy and a resistant to suggest that his heart failure is well controlled. The downward trending NT proBNP is reassuring. I will plan to see him back in 3 months. Manuel Evans M.D. 11/17/20 SROOM TECHNOLOGY TECHNICIAN documented in this encounter Plan of Treatment Not on filedocumented as of this encounter Procedures Procedure Name Priority Date/Time Associated Diagnosis Comme nts T4 (THYROXINE), TOT Routine 11/17/2020 8:51 AM Hypothyroidism Results for this ONLY, S CLASSROOM TECHNOLOGY TECHNICIAN procedure are i n the results section. documented in this encounter Results HOLTER MONITOR - IN CLINIC SUPERVISORY TRAINING SPECIALIST (11/17/2020 3:20 PM CLASSROOM TECHNOLOGY TECHNICIAN) [facility] gist Method Time Signature Pause Longest 2.14 s HOLTER SENTINEL VE Max Per [id number] HOLTER Hour Time SENTINEL VE Total Beats 256 count HOLTER SENTINEL SVE Max Per 19 count HOLTER Hour SENTINEL Mean Heart 56 bpm HOLTER Rate SENTINEL Max Heart Rate [id number] HOLTER Time SENTINEL Max Heart Rate 83 bpm HOLTER SENTINEL SVE Percent 0 percent HOLTER Beats SENTINEL SVT Runs 0 count HOLTER SENTINEL Analysis Date 20,210,222 HOLTER SENTINEL Holter Pauses 40 count HOLTER SENTINEL Bradycardia 0 count HOLTER Runs SENTINEL Min Heart Rate 47 bpm HOLTER SENTINEL Tachycardia 0 count HOLTER Runs SENTINEL VT Runs 0 count HOLTER SENTINEL Recording Date [id number] HOLTER SENTINEL VE Percent 0 percent HOLTER Beats SENTINEL AF Count 0 count HOLTER SENTINEL SVE Max Per [id number] HOLTER Hour Time SENTINEL Min Heart Rate [id number] HOLTER Time SENTINEL SVE Total 118 count HOLTER Beats SENTINEL VE Max Per 28 count HOLTER Hour SENTINEL Specimen (Source) Anatomical Collection Method Collection Time Re ceived Time Location / / Volume Laterality 11/17/2020 3:18 PM CLASSROOM TECHNOLOGY TECHNICIAN Narrative This result has an attachment that is no t available. Manuel Evans M.D. CV CARDIAC SERVICES PROCEDUR ES Performing Organization Address City/State/ZIP Code Phon e Number HOLTER SENTINEL HOLTER SENTINEL NA (ABNORMAL) T4 (Thyroxine), Total Only (11/17/2020 8:51 AM CLASSROOM TECHNOLOGY TECHNICIAN) athologist Signature T4 4.4 (L) 4.5 - 11.7 11/17/2020 DTL (Thyroxine), mcg/dL 3:55 PM CLASSROOM TECHNOLOGY TECHNICIAN Total Only, S Specimen Anatomical Collection Method Collection Time Receive d Time (Source) Location / / Volume Laterality Blood (Blood, 11/17/2020 8:51 AM 11/17/19 21 3:13 Venous) CLASSROOM TECHNOLOGY TECHNICIAN PM CLASSROOM TECHNOLOGY TECHNICIAN Manuel Evans M.D. LAB BLOOD ADD-ON Performing Organization Address City/State/ZIP Code Phon e Number [facility] - [address] [place], [place] [address] [facility] [place] [address] [facility] [address] documented in this encounter Visit Diagnoses Diagnosis Chronic Systolic (Congestive) Heart Fail ure (HCC) - Primary Hypertension Essential Primary Beat Premature Ventricular Hypothyroidism documented in this encounter Additional Health Concerns Assessment Noted Time PHQ-9 Depression Total Score: 18 04/28/2018 11:27 AM C DT documented as of this encounter Care Teams Set Up And Charger Relationship Specialty Start Date End Date Shayla Alford D.O. PCP - General Internal Medicine 05/22/[address] [phone] documented as of this encounter
--- OUTSIDE RECORDS SUMMARY | 2022-05-21 11:25 | XMS_ITS | Encounter Summary ---
:1945 Author Organization [facility] Address [address] [place] [address] Care Team Providers Name Role Phone Shayla Alford D.O. Primary Care Provider [phone] Reason for Visit Reason Comments Care Coordination Follow Up Encounter Details Date Type Department Care Team Description 08/08/2020 [facility] Internal [facility] A, R.N. (Follow Up) in [place], [facility] [address] [place], [place] [address] [address] [place], [place] [phone] (Work) [phone] Social History Tobacco Use Types Packs/Day Years [...] do you attend evangelical or Never 2021 sikhism services? Do you belong to any clubs [...] have completed or the highest Martin, MEd, JTAC, CAYDEN) degree you have received? Sex Assigned at Date Recorded Male 05/21/2018 2:34 PM CDT documented as of this encounter Progress Notes Ronda Fernandez R.N. - 08/08/2020 11:15 AM CST SUBJECTIVE REASON FOR VISIT Adult Medical Care Coordination Follow-Up HISTORY OF PRESENT ILLNESS Jonnathan Bandar Julissa reports he had no unplanned visits for healthcare since last contact. Summary of the discussion: Overall, patient states he is feeling well and has no concerns about his health. He expressed his pleasure of the outcome of the presidential election. We discussed how well he is managing his health and that in the next phone call or two he will be graduated from the Adult Medical Care Coordination program. He verbalizes that he wants to make sure wediscuss procedures and such for if I get sick. I confirmed that we would review these again. Chronic disease follow up: Asthma- no issues at this time. My lungs are good, they aren't giving me any problem. CHF- Weight is staying around 204-205 pounds or right around there. Patient states he is still really focusing on a low salt diet and just yesterday while cleaning out his pantry realized how much sodium is in a can of cream of mushroom soup. He says he gave all of his cream of varsities away and has now bought the low sodium versions instead. DM2- I think it's way better than what it was. I think my next A1c will be lower than the 8 it was the last time. I'm experimenting with foods to see what I can eat without messing up my blood sugars.Once in a while I'll jump into that 300-400 range, but that's not high for me in my history. 600 is high for me. He denies having any episodes of hypoglycemia. He denies any concerns about his diabetes at this time. HTN- Mr. Costa denies any concerns at this time. Medication concerns: None. Patient is taking all that is ordered for him as instructed. Physical functioning: I'm getting stronger every day. My legs are weak, but I bet I can walk a mile. I'm sleeping well. Probably more than I should be sleeping. But I think I'll stay on the Trazodone as I love the sleep I get while I'm on it. Goals Addressed This Visit's Progress Patient Stated ??? Get my A1c down to 7. (pt-stated) On track 06/30/20- A1c= 8.0% (on 04/12/20 was 10.3%). Patient plans to continue to improve this through diet and exercise. ??? I want to see my grandbabies graduate. (pt-stated) On track ??? I'm going to start restoring a tractor. (pt-stated) On track ??? Next summer I'd like to do 5k so that will take gentle training and time to get to that. (pt-stated) On track Other ??? Self Management of Congestive heart failure On track HEALTHY EATING -Eat a well balanced diet including: fruits and vegetables whole grains fat-free or low-fat dairy products lean proteins -Limit sodium to less than 2000mg/day -Limit fluid intake to 1.5 liter per day -Limit alcohol -Limit fats and cholesterol BEING ACTIVE - Regular exercise MONITORING -Wear compression stockings as directed -Elevate legs whenever possible. Call if noticeable change in swelling -Call if noticeable change in bloating -Record weight daily. Call if weight up 2-3 lbs in one day or 5lbs over baseline. -Record daily fluid intake -Record blood pressure and heart rate. TAKING MEDICATIONS -Take all medications as prescribed -Manage prescription refills to avoid running out of medications -Discuss with provider prior to starting new medications, including fnwp-ssx-qxbyoef and herbal supplements. PROBLEM SOLVING -Recognize barriers and develop a plan to manage barriers -Set reasonable goals for managing your heart failure -Use your heart failure action plan HEALTHY COPING -Practice relaxation exercise to reduce anxiety -Make small realistic goals for each day -Build pleasurable activities into each day -Use your support network and/or online support networks -Communicate your wishes with family and health care providers. REDUCING RISKS -Regular follow up with your provider ??? Use Emergency plan On track Sick Day Plan:Who to Call for More Support Follow recommendations or call your Clinic Care Team during clinic business hours. After clinichours, call Expert script artist Line for concerning symptoms. Call . Appointment line: For Family Medicine appointments in [place] call [phone] or Internal Medicine appointments [phone]. To reschedule or cancel an appointment with your RN Stock Pitcher, call or leave a message through the switchboard at [phone]. Nurse Stock Pitcher: ALLEY Bond. You may call Friday-Friday from 7:30-4:00. Primary Care: Keep regular follow-up appointments with your Primary Care Provider. Call your Care Team during office hours or call the clinic (above numbers). You may also send a message to your Provider or Stock Pitcher/ Care Team through your Patient Online Services (Patient Portal). If having problems using your patient portal, call the Patient Online Services Patient Portal Helpline at for assistance. Our Clinic Pharmacist is also available for individual consultation on all your medications. Ask fora Medication Therapy Management appointment if needed. ??? Use Emergency plan On track For Heart Failure ??? Severe, worsening shortness of breath ??? Severe, worsening chest heaviness or pain ??? Fainting Your plan: ??? Seek emergency help by activating your local emergency system (such as calling 911 or contactingan emergency room) ??? Use Sick day plan On track For Heart Failure Please report any of the following signs or symptoms to your primary care team. ??? Not feeling well ??? Weight up 2-3 pounds in one day or 5 pounds over baseline weight ??? Weight is down 2-3 pounds below your baseline weight with new or worsened light-headedness or dizziness ??? Noticeable swelling or bloating ??? More difficulty breathing, especially with activity and at night Your plan: ??? Follow your sodium intake plan ??? Follow your fluid intake plan ??? Call your health care provider if your symptoms do not improve in 1 to 2 days ??? Use Sick day plan for diabetes On track Sick Day Plan: When you are sick (because your body is under stress), your blood sugars can go up. If you are having nausea and/or are vomiting, you may still need to take your insulin because your sugars will be higher than usual. Points to remember: ??? Do not stop taking your medication. Call your health care team and ask what to do about taking your insulin when you are sick. ??? Monitor blood glucose (blood sugar) 4 times daily, even if you are not eating. - If your blood glucose is greater than 250 mg/dL two times in a row and you have been taught how totest for ketones, test for ketones. If you test positive for ketones, call your diabetes care team. - If your blood glucose is greater than 250 mg/dL two times in a row and you have not been taught how to test for ketones, call the diabetes care team. ??? If you have symptoms of hypoglycemia (low blood glucose) or you test your blood glucose and it is below 70 mg/dL, eat one of the followin four-gram glucose tablets, 1 glucose gel tube, 1 tablespoon sugar, honey or syrup, 15 small jelly beans (Jelly Belly?size) or Skittles???, or 8 SweeTarts???. - Check your blood glucose 15 minutes later. - Repeat this treatment every 15 minutes, up to three times, until your blood glucose is back in your goal range. - After three treatments, if your blood glucose does not rise above 70 mg/dL, or if symptoms continue, call your diabetes care team. ??? Call your health care team if you are vomiting, have a fever above 101 degrees Fahrenheit for 8 hours or more. ??? Have all log books and records at hand to give your physician a full report. ??? Try to take in 4 ounces of water or sugar-free liquids every 30 minutes to keep from becoming dehydrated. If you aren't able to follow your normal meal plan, these foods offer some calories: ?cup apple juice ? cup cooked cereal ??? [place] ? cup haresh freddy ? cup sherbet ? cup ice cream ??? 1 cup soup If your nausea or vomiting continues and you are not able to eat or drink, then you are at a high risk for dehydration. Call your health care team in this situation; you may need to be hospitalized. SOCIAL HISTORY: Social Determinants of Health: No categories of concern noted by patient. Advanced Directives: Available on file ASSESSMENT/PLAN Red flags: Patient is not experiencing any red flags of asthma, CHF, HTN or DM2 at this time. Jonnathan Costa was able to verbalize personal red flags for worsening of asthma, CHF, HTN andDM2. and is able to respond appropriately to the symptoms. Health Maintenance: not addressed. Next contact type: Phone Call. Discussion items for the next contact include: asthma, CHF, HTN, DM2, graduation (and who to call ifhe isn't feeling well) The patient was instructed to contact the med care manager with any questions or concerns and statedunderstanding of the information provided. Disposition/Recommendation: recommended continue engagement in self-management activities Education: patient/caller able to teach back Caller agreeable to plan of care: yes The following references were used: none ECTOR PENETRANT documented in this encounter Plan of Treatment Not on filedocumented as of this encounter Visit Diagnoses Not on filedocumented in this encounter Additional Health Concerns Assessment Noted Time PHQ-9 Depression Total Score: 18 04/28/2018 11:27 AM C DT documented as of this encounter Care Teams Rn Residential Relationship Specialty Start Date End Date Shayla Alford D.O. PCP - General Internal Medicine 05/22/[address] [id number] documented as of this encounter
--- OUTSIDE RECORDS SUMMARY | 2022-05-21 11:25 | XMS_ITS | Encounter Summary ---
:1945 Author Organization [facility] Address [address] [place] [address] Care Team Providers Name Role Phone Shayla Alford D.O. Primary Care Provider [phone] Reason for Visit Reason Comments Care Coordination Follow up Encounter Details Date Type Department Care Team Description 07/03/2020 [facility] Internal Medicine A, R.N. (Follow up) in [place], [facility] [address] [place], [place] [address] [address] [place], [place] [phone] (Work) [phone] Social History Tobacco Use Types Packs/Day Years [...] do you attend lutheran or Never 2021 restorationism services? Do you [...] completed or the highest Martin, MEd, EXECUTIVE LEGAL SECRETARY, CAYDEN) degree you have received? Sex Assigned at Date Recorded Male 05/21/2018 2:34 PM CDT documented as of this encounter Progress Notes Ronda Fernandez RMauroN. - 07/03/2020 9:59 AM CDT SUBJECTIVE REASON FOR VISIT Adult Medical Care Coordination Follow-Up HISTORY OF PRESENT ILLNESS Jonnathan Michelleolas Julissa reports he had no unplanned visits for healthcare since last contact. Summary of the discussion: General health status and progress towards goals. Discussed graduation. I'm sleeping very fine now with that Trazodone. I usually get 9 hours of sleep a night and maybe wake up twice to go to the bathroom but I fall right back to sleep. My concern is that when I woke up this morning my oxygen level was 92%. About 20 minutes later it was up to 98%. I felt fine, but I wonder your thoughts on that. We discussed that he felt fine upon waking- denies any shortness of breath. He states he does not snore at night. He reports that he has been diagnosed with sleep apnea many years ago but I refuse to wear that mask. He verbalizes the importance of wearing his CPAP but againdeclines. He was encouraged to discuss his oxygen concerns with his PCP if his morning oxygen saturations continue to low. He verbalized his understanding of this and was in agreement, Discussed graduation as he is self managing his medical conditions very well at this time. I need support. With your calls, I can charge through things. I can have these health issues taken care of in6 months, maybe a year. But I know myself and without support I falter. I explained that the Adult Medical Care Coordination Program is a short term (no more than 3 month) program. Mr. Costa asked ifthere was a way he could continue in the program past that point. I again explained that the programis not going to be able to assist him for the length which he desires. Mr. Costa has been in the program since 05/15/20 so he was told that we still have some time to continue his education on self nissa gement of his DM2, CHF, and HTN and teaching on how to navigate the healthcare system. Chronic disease follow up: DM2- Patient checks his blood sugars 4 times a day, and it was 170 this morning. After eating watermelon yesterday it was up to 400 and Mr. Costa took some insulin to bring it back down. He did not have any symptoms of hyperglycemia at that time. His most recent A1c from 06/30/20 is down to 8.0% (from 10.3%). His goal is to get his A1c down to 7.0% through diet and exercise. CHF- Weight this morning was 201 pounds. He denies any edema, PND, or shortness of breath. My legs look like bird legs. Mr. Costa mentions that he has never been contacted by that program from [facility] is supposed to be a heart failure clinic or something. I do not see an order for that type of program, nor any mention about it in his records going back about 2 months. After discussion, it is decided that the program may not offer any additional assistance as he is self managing well at this time. He was instructed to contact his PC should he change his mind. HTN- Blood pressure when recently checked at his clinic visit was 120/65. Medication concerns: None. Medication is??managed by??his .??But he helps as well.??He uses a twice a day pill box. I hardly know ho to pronounce half of them not to mention know what they are for. Patient says he istaking everything that is put into his pill box. Physical functioning: Yesterday I walked my first mile. I was a little weak at the end of that mile, but I did it. I planto do that every day. And when it gets cold, Anne has a dome that I can walk in. And I will work outside most of the day - slowly, but I'll be outside most of the day. So I'm getting in a lot of exercise. 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 I get way to distracted and so sometimes I make driving moves without thinking about them. So I've had my do most of the driving. I'll occasionally drive into town which is only a mile, but I dont drive much more than that. Arm strength- he has not been going to a gym for this but has been doing a lot of walking. 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 Goals Addressed This Visit's Progress Patient Stated [...] provider prior to starting new medications, including kyys-vcz-marmsye and herbal supplements. PROBLEM SOLVING -Recognize barriers [...] Plan:Who to Call for More Support Follow Dr. recommendations or call your Clinic Care Team during clinic business hours. After clinichours, call Expert iron piler Line for concerning symptoms. Call . Appointment line: For Family Medicine appointments in [place] call [phone] or Internal Medicine appointments [phone]. To reschedule or cancel an appointment with your RN Education Coordinator, call or leave a message through the switchboard at [phone]. Nurse Education Coordinator: ALLEY Bond. You may call Friday-Friday from 7:30-4:00. Primary Care: Keep regular follow-up appointments with your Primary Care Provider. Call your Care Team during office hours or call the clinic (above numbers). You may also send a message to your Provider or Education Coordinator/ Care Team through your Patient Online Services [...] apple juice ? cup cooked cereal ??? [place] ? cup haresh freddy ? cup sherbet [...] file ASSESSMENT/PLAN Red flags: Patient is not experienceing any erd flags at this time. Jonnathan Costa was able to verbalize personal red flags for worsening of CHF, HTN, DM2. and is able to respond appropriately to the symptoms. Health Maintenance: none. Next contact type: Phone Call. Discussion items for the next contact include: CHF, HTN, DM2, medication knowledge in preparation for graduation. The patient was instructed to contact the acute care surgeon with any questions or concerns and statedunderstanding of the information provided. Disposition/Recommendation: self-care of CHF, HTN, DM2 appropriate at this time, patient encouraged to call back with questions and recommended continue engagement in self-management activities Education: patient/caller able to teach back Caller agreeable to plan of care: yes The following references were used: nursing clinical judgement documented in this encounter Plan of Treatment Not on filedocumented as of this encounter Visit Diagnoses Not on filedocumented in this encounter Additional Health Concerns Assessment Noted Time PHQ-9 Depression Total Score: 18 04/28/2018 11:27 AM C DT documented as of this encounter Care Teams Parimutuel Ticket Checker Relationship Specialty Start Date End Date Shayla Alford D.O. PCP - General Internal Medicine 05/22/20 [address], [place] [id number] documented as of this encounter
--- OUTSIDE RECORDS SUMMARY | 2022-05-21 11:25 | XMS_ITS | Encounter Summary ---
:1945 Author Organization [facility] Address [address] [place] [address] Care Team Providers Name Role Phone Shayla Alford D.OMauro Primary Care Provider [phone] Encounter Details Date Type Department Care Team Description 07/01/2020 Hospital Encounter Department of Alexys Diabete s Mellitus Type 2 With Diabetic Chronic Kidney Disease Hyperglycemic (HCC); Laboratory Medicine Shayla queen High Ris k Medication in [place], D.O. [place] [address] [place] [phone] Social History Tobacco Use [...] do you attend mu-ism or Never 2021 sabianism services? Do you [...] have completed or the highest Martin, MEd, TENSION MACHINE OPERATOR, [place]) degree you have received? [...] SYRINGE-NEEDLE,INSULIN,0. 0 5 ML (INSULIN SYRINGE MISC) albuterol sulfate 90 Inhale 2 puffs every 0 08/1909/13/2020 mcg/actuation aerosol 6 (six) hours as powdr breath activated needed. amiodarone (PACERONE) 200 Take 200 mg by [...] if not eating. insulin glargine (Lantus Inject 0.14 mL (14 10 mL 12 04/202007/19/2020 U-100 Insulin) 100 Units total) under unit/mL injection the skin at bedtime. isosorbide mononitrate Take 1 tablet (60 mg 0 11/201902/22/2021 (IMDUR) 60 mg 24 hr total) by mouth tabletIndications: daily. 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 As directed per DR capsule pfjmgu-ccahipre-eehnylm Take 1 capsule by 0 10/12/2020 (CREON) mouth as needed for 6,000-19,000-30,[address] capsule pjhhdq-ogtmxwhl-ezywqae Take 1 capsule by 0 10/12/2020 (toduqc-lcoirfve-jelwpxh) mouth 3 (three) 6,000-19,000-30,000 Unit times a day with per DR capsule meals. Take 2-3 capsules by mouth 3 times daily with meals lisinopriL Take 1 tablet by 0 11/15/2008 [...] Encounter Note - Shayla Alford D.O. - 2020 11:32 AM CDT Please call patient following information. Your thyroid is in good range. Even, if your TSH is slightly elevated, your T4 is normal. Your hemoglobin A1c has improved and is now down to 8. Great job !!! one of your liver enzymes is slightly elevated. We will recheck it again in a month. This, could be due to amiodarone therapy. Electronically signed by: Shayla Alford D.O. 07/06/20 11:31 AM CDT documented in this encounter Plan of Treatment Not on filedocumented as of this encounter Procedures Procedure Name Priority Date/Time Associated Diagnosis Comme nts OH T4 FREE Routine 07/01/2020 10:01 Results for this AM CDT procedure are i n the results section. THYROID FUNCTION Routine 07/01/2020 10:01 High Risk Medication Results for this CASCADE, S AM CDT procedure are i n the results section. ALANINE AMINOTRANSFERASE Routine 07/01/2020 10:01 High Risk Me dication Results for this (ALT), S/P AM CDT procedure are i n the results section. ASPARTATE Routine 07/01/2020 10:01 High Risk Medication Res ults for this AMINOTRANSFERASE (AST), AM CDT proc edure are in S/P the results section. HEMOGLOBIN A1C, B Routine 07/01/2020 10:01 Diabetes Mellitus R esults for this AM CDT Type 2 With Diabetic procedu re are in Chronic Kidney the results Disease section. Hyperglycemic (HCC) OH MICROSOMAL AB EA/TPO Routine 07/01/2020 9:58 R esults for this AM CDT procedure are i n the results section. documented in this encounter Results T4 (Thyroxine), Free, Serum (07/01/2020 10:01 AM CDT) P athologist Signature T4 (Thyroxine), 1.0 0.9 - 1.7 07/01/2020 [facility] Free, S ng/dL 12:03 PM CDT Comment: Biotin has been identified by [...] (Source) Location / / Volume Laterality Blood 07/01/2020 10:01 07/01/2020 AM CDT 10:07 AM CDT Shayla Alford D.O. LAB BLOOD ADD-ON Performing Organization Address City/State/ZIP Code Phon e Number [facility]- [address] [place] [address] [facility] [place] [address] System in [place] [address] (ABNORMAL) Thyroid Function Major (07/01/2020 10:01 AM CDT) athologist Signature TSH, Sensitive 7.3 (H) 0.3 - 4.2 07/01/2020 [facility] mIU/L 11:35 AM CDT Comment: Biotin has been identified [...] Location / / Volume Laterality Blood (Blood, 07/01/2020 10:01 07/01/2020 Venous) AM CDT 10:07 AM CDT Shayla Alford D.O. LAB BLOOD ADD-ON Performing Organization Address City/[facility]/ZIP Code Phon e Number [facility]- [address] [place] [address] [place] [address] System in [place] [address] (ABNORMAL) ALT (Alanine Aminotransferase) (07/01/2020 10:01 AM CDT) [facility] Method Time Signature Alanine 65 (H) 7 - 55 07/01/2020 [facility] Aminotransferase U/L 11:26 AM CDT (ALT), P Specimen Anatomical Collection Method Collection Time Receive d Time (Source) Location / / Volume Laterality Blood (Blood, 07/01/2020 10:01 07/01/2020 Venous) AM CDT 10:07 AM CDT Shayla Alford D.O. LAB BLOOD ADD-ON Performing Organization Address City/State/ZIP Code Phon e Number [facility]- [address] [place] [address] [place] [address] System in [place] [address] AST (Aspartate Aminotransferase) (07/01/2020 10:01 AM CDT) [facility] Method Time Signature Aspartate 38 8 - 48 07/01/2020 [place] Aminotransferase U/L 11:26 AM CDT (AST), P Specimen Anatomical Collection Method Collection Time Receive d Time (Source) Location / / Volume Laterality Blood (Blood, 07/01/2020 10:01 07/01/2020 Venous) AM CDT 10:07 AM CDT Shayla Alford D.O. LAB BLOOD ADD-ON Performing Organization Address City/State/ZIP Code Phon e Number [facility]- [address] [place] [address] [place] [address] System in [place] [address] (ABNORMAL) Hemoglobin A1c (07/01/2020 10:01 AM CDT) P athologist Signature Hemoglobin A1c, 8.0 (H) 4.2 - 5.6 07/01/2020 [facility] B % 11:04 AM CDT Comment: Hemoglobin A1c values greater than or eq ual to 6.5 percent are diagnostic for diabetes mellitus. ?? Diagnosis should be confirmed by repeat testing. ??In diabet ic patients, HbA1c goals should be discussed with healthcar e provider. Specimen Anatomical Collection Method Collection Time Receive d Time (Source) Location / / Volume Laterality Blood (Blood, 07/01/2020 10:01 07/01/2020 Venous) AM CDT 10:07 AM CDT Shayla Alford D.O. LAB BLOOD ADD-ON Performing Organization Address City/State/ZIP Code Phon e Number [facility]- [address] [place] [address] [place] [address] System in [place] [address] Thyroperoxidase (TPO) Antibodies, Serum (07/01/2020 9:58 AM CDT) Patholo gist Method Time Signature Thyroperoxidase Ab, 0.9 <9.0 07/03/2020 DTL S IU/mL 8:09 AM CDT Specimen Anatomical Collection Method Collection Time Receive d Time (Source) Location / / Volume Laterality Blood 07/01/2020 9:58 AM 0 9:43 CDT AM CDT Shayla Alford D.O. LAB BLOOD NON ADD-ON Performing Organization Address City/State/ZIP Code Phon e Number [facility] [address] [place], [place] [address] [facility] [place] [place] [address] [facility] [address] documented in this encounter Visit Diagnoses Diagnosis Diabetes Mellitus Type 2 With Diabetic C hronic Kidney Disease Hyperglycemic (HCC) High Risk Medication documented in this encounter Additional Health Concerns Assessment Noted Time PHQ-9 Depression Total Score: 18 04/28/2018 11:27 AM C DT documented as of this encounter Care Teams Image Assembler Relationship Specialty Start Date End Date Shayla Alford D.O. PCP - General Internal Medicine 05/22/20 [address] [place] [phone] documented as of this encounter
--- OUTSIDE RECORDS SUMMARY | 2022-05-21 11:25 | XMS_ITS | Encounter Summary ---
:1945 Author Organization [facility] Address [address] [place] [address] Care Team Providers Name Role Phone Shayla Alford D.O. Primary Care Provider [phone] Reason for Visit Reason Comments Care Coordination Patient call in Encounter Details Date Type Department Care Team Description 08/28/2020 Patient Outreach [facility] Internal Medicine A, R.N. (Patient call in ) in [place], [facility] [place] [address] [place], [place] [address] [address] [place], [place] [phone] (Work) [phone] Social History Tobacco Use Types Packs/Day Years [...] do you attend restorationism or Never 2021 yarsanism services? Do you belong to any clubs [...] have completed or the highest Martin, MEd, REGIONAL ADMINISTRATIVE ASSISTANT, [place]) degree you have received? Sex Assigned at Date Recorded Male 05/21/2018 2:34 PM CDT documented as of this encounter Progress Notes Ronda Fernandez R.N. - 08/28/2020 9:55 AM CST Mr. Costa called in wondering what his appt on Friday AM was for (it's our final Adult Medical CareCoordination call via video visit).He then explained that he has been feeling well since our last visit. His weight this morning was 206 pounds, up slightly in the past month or so, but he attributes it to an increase in muscle mass as he is doing more exercise. He acknowledges that he is very sodium sensitive in foods and although he doesn't add any sodium to what he eats, if he does eat something alittle higher in salt his feet will swell. He will then elevate them, which helps decrease the edema. Mr. Costa mentions his blood sugar yesterday morning was 170 and this morning was 104. He watches what he eats, but says he ate similar things the past 2 days and cannot figure out why this morning his number was lower than yesterday. We discussed various other factors that affect blood sugar numbers, including amount of activity, stress, sickness or infections, etc. He verbalized his understandingof this information. He states he is looking forward to our video visit this Friday and will have his present to assist him. INSPECTOR documented in this encounter Plan of Treatment Not on filedocumented as of this encounter Visit Diagnoses Not on filedocumented in this encounter Additional Health Concerns Assessment Noted Time PHQ-9 Depression Total Score: 18 04/28/2018 11:27 AM C DT documented as of this encounter Care Teams Restaurant Team Member Relationship Specialty Start Date End Date Shayla Alford D.O. PCP - General Internal Medicine 05/22/20 [address] [place] [phone] documented as of this encounter
--- OUTSIDE RECORDS SUMMARY | 2022-05-21 11:25 | XMS_ITS | Encounter Summary ---
:1945 Author Organization [facility] Address [address] [place] [address] Care Team Providers Name Role Phone Shayla Alford D.O. Primary Care Provider [phone] Encounter Details Date Type Department Care Team Description 06/12/2020 Ancillary Procedure Department of Urology Social History [...] do you attend religion or Never 2021 amish services? Do you [...] have completed or the highest Martin, MEd, GLUING MACHINE OPERATOR, [place]) degree you have received? Sex Assigned at Date Recorded Male 05/21/2018 2:34 PM CDT documented as of this encounter Plan of Treatment Not on filedocumented as of this encounter Procedures Procedure Name Priority Date/Time Associated Diagnosis Comme nts UROLOGY IMAGE EXAM Routine 06/12/2020 11:35 AM Re sults for this CDT procedure are i n the results section. documented in this encounter Results CYSTOSCOPY-Urology Image Exam (06/12/2020 11:35 AM CDT) Specimen (Source) Anatomical Collection Method Collection Time Re ceived Time Location / / Volume Laterality 06/12/2020 11:35 AM CDT Narrative [facility] - 06/12/2020 3:19 PM CDT This order has been created and [...] documented as of this encounter Care Teams Merchandising Intern Relationship Specialty Start Date End Date Shayla Alford D.O. PCP - General Internal Medicine 05/22/20 [address] [place] [address] documented as of this encounter
--- OUTSIDE RECORDS SUMMARY | 2022-05-21 11:25 | XMS_ITS | Encounter Summary ---
:1945 Author Organization [facility] Address [address] [place] [address] Care Team Providers Name Role Phone Shayla Alford D.O. Primary Care Provider [phone] Reason for Referral Outpatient (Routine) - Modified Order Specialty Diagnoses / Procedures Referred By Contact Refer red To Contact Community Internal ARMAAN Alford [facility] Medicine Tulio Mcguire [address] [place] [address] Referral ID Status Reason Start Date Expiration Date Visits V isits Requested Authorized [id number] Modified 06/30/2020 06/30/2021 1 1 Order Scheduling Instructions Follow up on diabetes and discuss starti ng invokana Schedule one hour , doing preop as well for colonoscopy Reason for Visit Reason Comments Congestive Heart Failure Appointment Request (Routine) - Closed Specialty Diagnoses / Procedures Referred By Contact Refer red To Contact Community Internal Medicine Referral ID Status Reason Start Date Expiration Date Visits Requ ested Visits Authorized [id number] Closed 05/22/2020 05/22/2021 1 1 Encounter Details Date Type Department Care Team Description 06/30/2020 Office Visit Department of Internal Rocío Di abetes Mellitus 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 Do you belong to any clubs or No 10/09/2021 organizations such as scientologist groups, unions, fraternal or athletic groups, or [...] have completed or the highest Martin, MEd, [place] GOLD ATTENDANT, [place]) degree you have received? Sex Assigned at Date Recorded Male 05/21/2018 2:34 PM CDT documented as of this encounter Last Filed Vital Signs Vital Sign Reading Time Taken Comments Blood Pressure 120/66 06/30/2020 9:16 AM CDT Pulse 52 06/30/2020 9:16 AM CDT Temperature 36.1 ??C (97 ??F) 06/30/2020 9:16 AM CDT Respiratory Rate 16 06/30/2020 9:16 AM CDT Oxygen Saturation 98% 06/30/2020 9:16 AM CDT Inhaled Oxygen Concentration - - Weight 95.8 kg (211 lb 3.2 oz) 06/30/2020 9:16 AM CDT Height - - Body Mass Index 27.69 06/06/2020 3:03 PM CDT documented in this encounter Progress Notes Shayla Alford D.O. - 06/30/2020 9:30 AM CDT SUBJECTIVE CHIEF COMPLAINT / REASON FOR VISIT Jonnathan Costa is a 74 y.o. male who presents for evaluation of Congestive Heart Failure. HISTORY OF PRESENT ILLNESS Jonnathan Costa is a pleasant 74-year-old male with past medical history significant for systolic congestive heart failure, type 2 diabetes, hypertension, presents today for follow-up on his chronic medical conditions. The patient, was seen urgently for his coronary artery disease and CHF exacerbation. He was followedby Cardiology and Pulmonary he is currently on 50 mg his beta-chasidy has been reduced to 25 mg daily his Imdur and amiodarone have also been reassessed. Currently with stable blood pressure at 120/66 and improvement in symptoms. He appears to be volume stable with no sign of decompensation. Therefore, we will continue amiodarone at 200 mg daily and Imdur at 60 mg daily. We will ensure liver functiontests and TSH are checked while on amiodarone. He continues to be on high-dose statin with atorvastatin. He was evaluated by Pulmonary and, felt tohave a mild asthma and advised to continue with Symbicort 1-2 puffs daily and p.r.n. albuterol. Today, we also emphasize importance of healthy whole plant diet with minimal processed food intake, and decreasing salt. Also, increasing exercise the patient states, he has been walking more in averaging about 30 minutes today. In regards to type 2 diabetes, his last hemoglobin A1c was elevated at 10. But the patient states that his blood glucose level has significantly improved. It is ranging 110 to 140s before eating. He iscompliant checking it is more than 4 times a day. He denies any significant lows. We discussed the addition of SG L2 inhibitor and benefit for his cardiac condition. He is currently on insulin. We [id number] check a hemoglobin A1c. The following portions of the patient's history were reviewed and updated as appropriate: allergies,current medications, family history, medical history, social history, surgical history and problem list. REVIEW OF SYSTEMS A ten point ROS is otherwise negative OBJECTIVE BP 120/66 (BP Location: Right arm, Patient Position: Sitting, Cuff Size: Regular) Pulse (!) 52 Temp 36.1 ??C (Temporal) Resp 16 Wt 95.8 kg SpO2 98% BMI 27.69 kg/m?? PHYSICAL EXAM General Appearance: healthy, alert, no distress. Skin: skin color, texture, turgor normal, no suspicious rashes or lesions. Head: normocephalic, no masses, lesions, tenderness or abnormalities. Ears: external ears normal, canals clear, TM's normal. Neck: Supple, no adenopathy; thyroid symmetric, normal size, no bruits. Lungs: clear to auscultation, no wheezing or rhonchi. Heart: RRR without murmur, gallop, or rubs. No ectopy, No carotid bruits. Musculoskeletal: No edema, cyanosis or calf tenderness. ASSESSMENT / PLAN #1 Diabetes Mellitus Type 2 With Diabetic Chronic Kidney Disease Hyperglycemic (HCC) In regards to type 2 diabetes, his last hemoglobin A1c was elevated at 10. But the patient states that his blood glucose level has significantly improved. It is ranging 110 to 140s before eating. He iscompliant checking it is more than 4 times a day. He denies any significant lows. We discussed the addition of SG L2 inhibitor and benefit for his cardiac condition. He is currently on insulin. We [id number] check a hemoglobin A1c. - Hemoglobin A1c; Future; Expected date: 06/30/2020 #2 Asthma Extrinsic Moderate (HCC) He has been stable, no recent exacerbations. Continue with Symbicort and albuterol. He has followed up with Pulmonary with recent pulmonary function testing. - budesonide-formoteroL (SYMBICORT) 160-4.5 mcg/actuation inhaler; Inhale 2 puffs 2 (two) times a day. 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 He was followedby Cardiology and Pulmonary he is currently on 50 mg his beta-chasidy has been reduced to 25 mg daily his Imdur and amiodarone have also been reassessed. Currently with stable blood pressure at 120/66 and improvement in symptoms. He appears to be volume stable with no sign of decompensation. Therefore, we will continue amiodarone at 200 mg daily and Imdur at 60 mg daily. We will ensure liver functiontests and TSH are checked while on amiodarone. Continue with high-dose statin. As well as, daily aspirin #5 High Risk Medication Amiodarone monitoring - AST (Aspartate Aminotransferase); Future; Expected date: 06/30/2020 - ALT (Alanine Aminotransferase); Future; Expected date: 06/30/2020 - Thyroid Function [facility]; Future; Expected date: 06/30/2020 #6 Screening Cancer Colon Patient is due for his colon cancer screening, we will be seen the patient in 1 month for preop. Other orders - [facility] Internal Medicine office visit (clinic); Future; Expected date: 07/31/2020 Time spent today 42 minutes more than 50% counseling Electronically signed by: Shayla Alford D.O. 06/30/20 12:31 PM CDT documented in this encounter Plan of Treatment Scheduled Referrals Name Type Priority Associated Diagnoses Order S [facility] Internal Outpatient Referral Routine Ex pected: Medicine office 07/31/2020 visit (clinic) (Approximate) , Expires: 06/30/2023 documented as of this encounter Results (ABNORMAL) Thyroid Function [facility] (07/01/2020 10:01 AM CDT) P athologist Signature TSH, Sensitive 7.3 (H) 0.3 - 4.2 07/01/2020 [facility] mIU/L 11:35 AM CDT Comment: Biotin has been identified by the capri enriquez as a potential interfering substance. ??Higher concentr ations of biotin may be found in multivitamins, hair/nail supple ments, and workout supplements. ??If the result does not ma h clinical observations, repeat testing after patient refrains fr om the use of supplements for at least 12 hours. Specimen Anatomical Collection Method Collection Time Receive d Time (Source) Location / / Volume Laterality Blood (Blood, 07/01/2020 10:01 07/01/2020 Venous) AM CDT 10:07 AM CDT Shayla Alford D.O. LAB BLOOD ADD-ON Performing Organization Address City/[facility]/ZIP Code Phon e Number [facility]- [address] [place] [facility] [place] [address] [place] [address] System in [place] [address] (ABNORMAL) ALT (Alanine Aminotransferase) (07/01/2020 10:01 AM CDT) [facility] Method Time Signature Alanine 65 (H) 7 - 55 07/01/2020 [place] Aminotransferase U/L 11:26 AM CDT (ALT), P Specimen Anatomical Collection Method Collection Time Receive d Time (Source) Location / / Volume Laterality Blood (Blood, 07/01/2020 10:01 07/01/2020 Venous) AM CDT 10:07 AM CDT Shayla Alford D.O. LAB BLOOD ADD-ON Performing Organization Address City/State/ZIP Code Phon e Number [facility]- [address] [place] [facility] [place] [address] [facility] [place] [address] System in [place] [address] AST (Aspartate Aminotransferase) (07/01/2020 10:01 AM CDT) [facility] gist Method Time Signature Aspartate 38 8 - 48 07/01/2020 [place] Aminotransferase U/L 11:26 AM CDT (AST), P Specimen Anatomical Collection Method Collection Time Receive d Time (Source) Location / / Volume Laterality Blood (Blood, 07/01/2020 10:01 07/01/2020 Venous) AM CDT 10:07 AM CDT Shayla Alford D.O. LAB BLOOD ADD-ON Performing Organization Address City/State/ZIP Code Phon e Number [facility]- [address] [place] [address] [facility] [place] [facility] [place] [address] System in [place] [address] (ABNORMAL) Hemoglobin A1c (07/01/2020 10:01 AM CDT) [...] Code Phon e Number [facility]- [address] [place] [address] [place] [facility] [place] [facility] [place] [address] System in [place] [address] documented in this encounter Visit Diagnoses Diagnosis Diabetes Mellitus Type 2 With Diabetic C hronic Kidney Disease Hyperglycemic (HCC) - Primary Asthma Extrinsic Moderate (HCC) 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 (HCC) Chronic Systolic (Congestive) Heart Fail ure (HCC) High Risk Medication Screening Cancer Colon documented in this encounter Additional Health Concerns Assessment Noted Time PHQ-9 Depression Total Score: 18 04/28/2018 11:27 AM C DT documented as of this encounter Care Teams Water Well Driller Relationship Specialty Start Date End Date Shayla Alford D.O. PCP - General Internal Medicine 05/22/[address] [place] [address] documented as of this encounter
--- OUTSIDE RECORDS SUMMARY | 2022-05-21 11:25 | XMS_ITS | Encounter Summary ---
:1945 Author Organization [facility] Address [address] [place] [address] Care Team Providers Name Role Phone Shayla Alford D.O. Primary Care Provider [phone] Reason for Visit Reason Comments COVID Inquiry Encounter Details Date Type Department Care Team Description 08/21/2020 Clinical Communication Division of General Prescheduli ng COVID Inquiry Internal Medicine in [place], [place] [address] [place] [address] Social History Tobacco Use Types Packs/Day Years [...] do you attend methodist or Never 2021 congregational services? Do you [...] have completed or the highest Martin, MEd, CONCERT PIANIST, CAYDEN) degree you have received? Sex Assigned at Date Recorded Male 05/21/2018 2:34 PM CDT documented as of this encounter Miscellaneous Notes Telephone Encounter - Meera Lanier - 08/21/2020 10:39 AM CST COVID DOS/PASS Screening What is the patient requesting?: COVID-19 Testing Only (End screening - follow local process) Plan: Endpoint recommendation: Testing indicated, sent patient to [facility] located at [address] [place] [address]. The entrance is on the north side of the building. You must call [phone] for an appointment time.Testing hours are Daily 9 am to 7 pm.When you arrive at the testing site: Remain in your vehicle and check-in by phone using the same appointment line number. and Please avoid using public transportationper CDC recommendation. If you do not have personal transportation please self-quarantine until a personal transportation option is available. *Reminder if sending patient for testing in [place] or [facility], an email notification is required. MECHANIC documented in this encounter Plan of Treatment Not on filedocumented as of this encounter Visit Diagnoses Not on filedocumented in this encounter Additional Health Concerns Assessment Noted Time PHQ-9 Depression Total Score: 18 04/28/2018 11:27 AM C DT documented as of this encounter Care Teams Travel Rn Relationship Specialty Start Date End Date Shayla Alford D.O. PCP - General Internal Medicine [facility] [place] [place] [address] documented as of this encounter
--- OUTSIDE RECORDS SUMMARY | 2022-05-21 11:25 | XMS_ITS | Encounter Summary ---
:1945 Author Organization [facility] Address [address] [place] [address] Care Team Providers Name Role Phone Shayla Alford D.O. Primary Care Provider [phone] Reason for Visit Reason Comments Care Coordination Follow Up Encounter Details Date Type Department Care Team Description 07/17/2020 Patient Outreach Department of Sruthi Decker [facility] Co ordination Internal Medicine in [place], [place]. (Follow Up) [place], [place] [address] [place] [phone] Social History Tobacco Use Types Packs/Day [...] do you attend christianity or Never 2021 yazidism services? Do you [...] have completed or the highest Martin, MEd, ACUPRESSURE THERAPIST, CAYDEN) degree you have received? Sex Assigned at Date Recorded Male 05/21/2018 2:34 PM CDT documented as of this encounter Progress Notes Sruthi Decker RShama. - 07/17/2020 2:47 PM CDT SUBJECTIVE REASON FOR VISIT Adult Medical Care Coordination Follow-Up HISTORY OF PRESENT ILLNESS Jonnathan Portillo Julissa reports he had no unplanned visits for healthcare since last contact. Summary of the discussion: General health status and progress towards goals. He is feeling quite well. He states his energy is increasing, he has been sleeping fine, he plans to go on a walk tomorrow to see how far he can do. Heis quite pleased with his progress, as 5 weeks ago he could not walk 100 feet without being winded. Chronic disease follow up: ASTHMA: Jonnathan states that since he his hospital stay, he has had no problems with his asthma. Today,denies symptoms of Asthma CHF: Jonnathan continues to weight himself daily. He states his weight is continuing to drop. He is 199 lbs today. He denies symptoms of Heart Failure DM: Jonnathan is measuring his blood sugar with meals. Today his blood sugars have been around 140 for breakfast and lunch. Yesterday, he states, was a day where he was eating more foods and his blood sugar was higher (490 at one point). He denies symptoms of Diabetes II HTN: Jonnathan states his blood pressure has been fine. He is 120's/60's. He denies symptoms of Hypertension Medication concerns: No concerns at this time. Physical functioning: Is continuing to remain as active as he can. He is listening to his body. He is walking more and working outside on the property more. Goals Addressed This Visit's Progress Patient Stated [...] provider prior to starting new medications, including acmb-[id number] and herbal supplements. PROBLEM SOLVING -Recognize barriers [...] clinic business hours. After clinichours, call Expert wood scrap handler Line for concerning symptoms. Call . Appointment line: For Family Medicine appointments in [place] call [phone] or Internal Medicine appointments [phone]. To reschedule or cancel an appointment with your RN Principal Scientist, call or leave a message through the switchboard at [phone]. Nurse Principal Scientist: ALLEY Bond. You may call Friday-Friday from 7:30-4:00. Primary Care: Keep regular follow-up appointments with your Primary Care Provider. Call your Care Team during office hours or call the clinic (above numbers). You may also send a message to your Provider or Principal Scientist/ Care Team through your Patient Online Services [...] apple juice ? cup cooked cereal ??? [place] ? cup haresh freddy ? cup sherbet [...] Directives: Available on file ASSESSMENT/PLAN Red flags: The patient had no redflag symptoms today. These red flags were discussed as symptoms to monitor for: , Asthma: very short of breath, difficulty walking and talking due to shortness of breath, difficulty breathing , usual activities severely limited, coughing and respiratory effort increased; retractions , Diabetes: average blood sugar >210, most fasting blood sugars >180, 2 consecutive hypoglycemic episodes <70, low or high blood sugar that does not respond to interventions (hypoglycemia 15x15 rule; hyperglycemia, coming down after recheck 30 mins later), increased heart rate (DKA or HHS), muscle aches, headaches, flushed skin , sweet or fruity breath, fatigue and irritability: , Heart Failure: shortness of breath with exertion, shortness of breath when lying down, unrelieved chest pain, wheezing or chest tightness at rest, weight gain or loss of more than 5 lbs in 2 days, fatigue and weakness and swelling in legs, ankles or feet and Hypertension: severe headache, fatigue, confusion, vision problems and chest pain Jonnathan Costa was able to verbalize personal red flags for worsening of CHF, DM. Health Maintenance: not addressed. Next contact type: Phone Call. Discussion items for the next contact include: Red Flags, Goals, Graduation The patient was instructed to contact the hourly caregiver with any questions or concerns and statedunderstanding of the information provided. Disposition/Recommendation: recommended continue engagement in self-management activities Education: patient/caller able to teach back Caller agreeable to plan of care: yes The following references were used: none documented in this encounter Plan of Treatment Not on filedocumented as of this encounter Visit Diagnoses Not on filedocumented in this encounter Additional Health Concerns Assessment Noted Time PHQ-9 Depression Total Score: 18 04/28/2018 11:27 AM C DT documented as of this encounter Care Teams Event Sales Assistant Relationship Specialty Start Date End Date Shayla Alford D.O. PCP - General Internal Medicine 05/22/20 [address] [place] [phone] documented as of this encounter
--- OUTSIDE RECORDS SUMMARY | 2022-05-21 11:25 | XMS_ITS | Encounter Summary ---
:1945 Author Organization [facility] Address [address] [place] [address] Care Team Providers Name Role Phone Shayla Alford D.O. Primary Care Provider [phone] Reason for Visit Reason Comments DMV DM Report Encounter Details Date Type Department Care Team Description 2020 Clinical Communication Department of Internal Andrei RIVERA DM Report Medicine in [place], Shayla, D .OMauro [place] [address] [place] [phone] Social History Tobacco Use [...] or relatives? How often do you attend holiness or Never 2021 islam services? Do you belong to any clubs or No 10/09/2021 organizations such as holiness groups, unions, [employer] or athletic groups, or school groups? How [...] have completed or the highest Martin, MEd, YARN COMBER, CAYDEN) degree you have received? Sex Assigned at Date Recorded Male 05/21/2018 2:34 PM CDT documented as of this encounter Plan of Treatment Not on filedocumented as of this encounter Visit Diagnoses Not on filedocumented in this encounter Additional Health Concerns Assessment Noted Time PHQ-9 Depression Total Score: 18 04/28/2018 11:27 AM C DT documented as of this encounter Care Teams Pad Cutter Relationship Specialty Start Date End Date Shayla Alford D.O. PCP - General Internal Medicine 05/22/[address] [phone] documented as of this encounter
--- OUTSIDE RECORDS SUMMARY | 2022-05-21 11:25 | XMS_ITS | Encounter Summary ---
:1945 Author Organization [facility] Address [address] [place] [address] Care Team Providers Name Role Phone Shayla Alford D.O. Primary Care Provider [phone] Encounter Details Date Type Department Care Team Description 06/14/2020 Diagnostic Division of Pulmonary Rocío As thma Extrinsic Moderate (HCC); Medicine in [place], Gianna Mcguire Effusion Pleural; [place] [address] Dyspnea Multifactorial [address] [place], [place] [phone] [phone] Social History Tobacco Use Types Packs/Day Years [...] do you attend rastafari or Never 2021 jainism services? Do you [...] completed or the highest Martin, MEd, MANAGER PATHOLOGY, CAYDEN) degree you have received? Sex Assigned at Date Recorded Male 05/21/2018 2:34 PM CDT documented as of this encounter Miscellaneous Notes Result Encounter Note - Shayla Alford D.O. - 06/15/2020 1:15 PM CDT Overall, your pulmonary tests are stable. We can discuss in detail when I see you in June. Electronically signed by: Shayla Alford D.O. 06/15/20 1:15 PM CDT documented in this encounter Plan of Treatment Not on filedocumented as of this encounter Procedures Procedure Name Priority Date/Time Associated Diagnosis Comme nts PULMONARY FUNCTION Routine 06/14/2020 1:25 PM Asthma Extrinsic Results for this TESTS CDT Moderate (HCC) procedure are in Effusion Pleural the results Dyspnea Multifactorial secti on. documented in this encounter Results Pulmonary Function Tests (06/14/2020 1:25 PM CDT) P athologist Signature VC MAX PRE 4.67 L 06/15/2020 [facility] 9:12 AM CDT SUITE FVC 4.67 L 06/15/2020 [facility] 9:12 AM CDT SUITE FEV1 3.31 L 06/15/2020 [facility] 9:12 AM CDT SUITE FEV1/FVC 70.90 % 06/15/2020 [facility] 9:12 AM CDT SUITE [id number]% 2.26 L/s 06/15/2020 [facility] 9:12 AM CDT SUITE PEF PRE 7.72 L/s 06/15/2020 [facility] 9:12 AM CDT SUITE FET PRE 7.95 sec 06/15/2020 [facility] 9:12 AM CDT SUITE DLCO 14.95 ml/(min*mm 06/15/2020 [facility] Hg) 9:12 AM CDT SUITE DLCOc 17.52 ml/(min*mm 06/15/2020 [facility] Hg) 9:12 AM CDT SUITE HB 10.30 g(Hb)/dL 06/15/2020 [facility] 9:12 AM CDT SUITE VA 7.30 L 06/15/2020 [facility] 9:12 AM CDT SUITE [id number] 98.00 % 06/15/2020 [facility] 9:12 AM CDT SUITE PulseRest 42.00 1/min 06/15/2020 [facility] 9:12 AM CDT SUITE [id number] 97.00 % 06/15/2020 [facility] 9:12 AM CDT SUITE PulseExer 61.00 1/min 06/15/2020 [facility] 9:12 AM CDT SUITE EXER TIME 1.30 min 06/15/2020 [facility] 9:12 AM CDT SUITE STEP HEIGHT 9.00 Inch 06/15/2020 [facility] PRE 9:12 AM CDT SUITE % PRED VC MAX 103.74 % 06/15/2020 [facility] 9:12 AM CDT SUITE FVC% 103.74 % 06/15/2020 [facility] 9:12 AM CDT SUITE FEV1% 99.73 % 06/15/2020 [facility] 9:12 AM CDT SUITE % PRED 95.24 % 06/15/2020 [facility] FEV1/FVC 9:12 AM CDT SUITE % PRED FEF 97.12 % 06/15/2020 [facility] 25-75% 9:12 AM CDT SUITE % PRED PEF 86.66 % 06/15/2020 [facility] 9:12 AM CDT SUITE PRED VC MAX 4.50 L 06/15/2020 [facility] 9:12 AM CDT SUITE PRED FVC 4.50 L 06/15/2020 [facility] 9:12 AM CDT SUITE PRED FEV 1 3.32 L 06/15/2020 [facility] 9:12 AM CDT SUITE PRED FEV1/FVC 74.44 % 06/15/2020 [facility] 9:12 AM CDT SUITE PRED FEF 2.33 L/s 06/15/2020 [facility] 25-75% 9:12 AM CDT SUITE PRED PEF 8.91 L/s 06/15/2020 [facility] 9:12 AM CDT SUITE Specimen (Source) Anatomical Collection Method Collection Time Re ceived Time Location / / Volume Laterality 06/14/2020 1:25 PM CDT Narrative This result has an attachment that is no t available. Shayla Alford D.O. PFT ORDERABLES Performing Organization Address City/State/ZIP Code Phon e Number [facility] SUITE [facility] SU[address] NA documented in this encounter Visit Diagnoses Diagnosis Asthma Extrinsic Moderate (HCC) Effusion Pleural Dyspnea Multifactorial documented in this encounter Additional Health Concerns Assessment Noted Time PHQ-9 Depression Total Score: 18 04/28/2018 11:27 AM C DT documented as of this encounter Care Teams Ward Helper Relationship Specialty Start Date End Date Shayla Alford D.O. PCP - General Internal Medicine 05/22/[address] [phone] documented as of this encounter
--- OUTSIDE RECORDS SUMMARY | 2022-05-21 11:25 | XMS_ITS | Encounter Summary ---
:1945 Author Organization [facility] Address [address] [place] [address] Care Team Providers Name Role Phone Shayla Alford D.O. Primary Care Provider [phone] Encounter Details Date Type Department Care Team Description 08/18/2020 Clinical Communication Department of Ronda Fernandez Internal Medicine in , [place], [place] [address] [facility] [address] [place] [phone] Social History Tobacco Use Types Packs/Day Years [...] or relatives? How often do you attend islam or Never 2021 samaritan services? Do you belong to any clubs or No 10/09/2021 organizations such as islam groups, unions, fraternal or athletic groups, or [...] have completed or the highest Martin, MEd, HERB DOCTOR, CAYDEN) degree you have received? Sex Assigned at Date Recorded Male 05/21/2018 2:34 PM CDT documented as of this encounter Miscellaneous Notes Telephone Encounter - Ronda Fernandez RMauroN. - 08/18/2020 8:33 AM SPUD DRILLER Please schedule a nurse appointment with this patient as outlined below. Forest Fire Officer (calendar name): MIGUEL ANGEL MCINTOSH CARE COORD NURSE Date: 09/01/20 Time: 9:30 a.m. Location: Patient's home/Virtual visit Appointment type: Virtual: Video Anyplace Extended- 60 minutes French Folder needed: No Please enter into notes section: Please add my name Ronda Villagomez, as the person will be completing the virtual visit. DRILLER documented in this encounter Plan of Treatment Not on filedocumented as of this encounter Visit Diagnoses Not on filedocumented in this encounter Additional Health Concerns Assessment Noted Time PHQ-9 Depression Total Score: 18 04/28/2018 11:27 AM C DT documented as of this encounter Care Teams Field Reimbursement Manager Relationship Specialty Start Date End Date Shayla Alford D.O. PCP - General Internal Medicine 05/22/[address] [phone] documented as of this encounter
--- OUTSIDE RECORDS SUMMARY | 2022-05-21 11:25 | XMS_ITS | Encounter Summary ---
:1945 Author Organization [facility] Address [address] [place] [address] Care Team Providers Name Role Phone Shayla Alford D.O. Primary Care Provider Reason for Visit Reason Comments Diabetes Mellitus Medication Visit Invokana Pre-op Exam Outpatient (Routine) - Modified Order Specialty Diagnoses / Procedures Referred By Contact Refer red To Contact Community Internal ARMAAN Alford [facility] Sahyla D.OMauro [address] [place] [address] Referral ID Status Reason Start Date Expiration Date Visits V isits Requested Authorized [id number] Modified 06/30/2020 06/30/2021 1 1 Order Encounter Details Date Type Department Care Team Description 07/19/2020 Office Visit Department of Internal Coleman Alford Mellitus Type 2 Without Complication (HCC) (Primary Dx); [place] . Chronic Systolic (Congestive) Heart Fail ure (HCC); [place] [address] Pancreatitis Chronic Recurrent (HCC); [address] [place], [place] Hypertension Essential Prima ry; [place] [address] Asthma Extrinsic Moderate (HCC); [id number] Hyperlipidemia; Elevated Liver Enzyme Abnormal, Aspartat e Transaminase, Serum Glutamic- Oxaloacetic Transaminase, Alanine Transaminase; [phone] Anemia In Chron ic Kidney Disease (Fax) Social History Tobacco Use Types Packs/Day [...] do you attend confucianism or Never 2021 sabianist services? Do you [...] have completed or the highest Martin, MEd, PASTE THINNER, CAYDEN) degree you have received? Sex Assigned at Date Recorded Male 05/21/2018 2:34 PM CDT documented as of this encounter Last Filed Vital Signs Vital Sign Reading Time Taken Comments Blood Pressure 129/58 07/19/2020 10:53 AM CDT Pulse 53 07/19/2020 10:53 AM CDT Temperature 36.3 ??C (97.3 ??F) 07/19/2020 10:53 AM CDT Respiratory Rate - - Oxygen Saturation 98% 07/19/2020 10:53 AM CDT Inhaled Oxygen Concentration - - Weight 97 kg (213 lb 13.5 oz) 07/19/2020 10:53 AM CDT Height - - Body Mass Index 28.04 06/06/2020 3:03 PM CDT documented in this encounter H&P Notes Shayla Alford D.O. - 07/19/2020 11:00 AM CDT SUBJECTIVE CHIEF COMPLAINT / REASON FOR VISIT Jonnathan Costa is a 75 y.o. male who presents for evaluation of Diabetes Mellitus; MedicationVisit (Invokana); and Pre-op Exam. HISTORY OF PRESENT ILLNESS Jonnathan Costa is a pleasant 75-year-old male with past medical history significant for congestive heart failure with reduced ejection fraction, history of type 2 diabetes, chronic pancreatitis,hypertension, presents today to discuss multiple concerns, and for medication management. In regards to type 2 diabetes, the patient's hemoglobin A1c has improved, it is now down to 8 from 10. The patient was encouraged to continue with his efforts. We discussed dietary modifications, and provided counseling. The patient did purchase a nutrition book recommended on our last visit. And has started implementing these changes. He has also try to walk and has been going to the mall to walk. We increase his Lantus to 24 units from 22 units. Kept his short- acting insulin as is. Since his hemoglobin A1c is improving, we discussed continuing with his insulin. We briefly discussed Invokana on our last visit. In regards to his systolic congestive heart failure with reduced ejection fraction, last echocardiogram showed an EF of 42%. We discussed importance of low-salt diet, heart healthy diet. He did eat a salty meal yesterday, and his weight was slightly up this morning. He denies any increased shortness of breath or chest pain, he denies any increased edema. He is vital is stable today with blood pressure 129/58 and heart rate of 53. His oxygen saturations 98% . He continues to do well on 200 mg of amiodarone, in addition to his Imdur 60 mg daily, metoprolol 25 mg daily, and hydralazine 25 every 8 hours in addition to torsemide 20 mg daily. Has felt weakness deconditioning and fatigue, and is not backyet to baseline. He is still also adjusting slowly to the new medications. We discussed that this could be a combination of medications side effects in addition to, deconditioning and chronic medical conditions. He denies any wheezing, any recent falls or injuries. No exacerbations of his lung disease. He continues to be on his Symbicort. We did discuss his colon cancer screening and surveillance which will be due August 19, 2020. The patient will be seen me in the next 2 weeks and we can do a preop for his colonoscopy. The following portions of the patient's history were reviewed and updated as appropriate: allergies,current medications, family history, medical history, social history, surgical history and problem list. REVIEW OF SYSTEMS A ten point ROS is otherwise negative OBJECTIVE BP 129/58 (BP Location: Right arm, Patient Position: Sitting, Cuff Size: Large) Pulse (!) 53 Temp 36.3 ??C (Temporal) Wt 97 kg SpO2 98% BMI 28.04 kg/m?? PHYSICAL EXAM General Appearance: alert, no distress, cooperative. Skin: skin color, texture, turgor normal, no suspicious rashes or lesions. Head: normocephalic, no masses, lesions, tenderness or abnormalities. Neck: Supple, no adenopathy; thyroid symmetric, normal size, no bruits. Lungs: clear to auscultation, no wheezing or rhonchi. Heart: RRR without murmur, gallop, or rubs. No ectopy, No carotid bruits. Extremities: 1+ pitting edema around the ankle. ASSESSMENT / PLAN Jonnathan was seen today for diabetes mellitus, medication visit and pre-op exam. Diagnoses and all orders for this visit: Diabetes Mellitus Type 2 Without Complication (HCC) Chronic Systolic (Congestive) Heart Failure (HCC) Pancreatitis Chronic Recurrent (HCC) Hypertension Essential Primary Asthma Extrinsic Moderate (HCC) Hyperlipidemia Elevated Liver Enzyme Abnormal, Aspartate Transaminase, Serum Glutamic- Oxaloacetic Transaminase, Alanine Transaminase Anemia In Chronic Kidney Disease In regards to type 2 diabetes, the patient's hemoglobin A1c has improved, it is now down to 8 from 10. The patient was encouraged to continue with his efforts. We discussed dietary modifications, and provided counseling. The patient did purchase a nutrition book recommended on our last visit. And has started implementing these changes. He has also try to walk and has been going to the mall to walk. We increase his Lantus to 24 units from 22 units. Kept his short- acting insulin as is. Since his hemoglobin A1c is improving, we discussed continuing with his insulin. We briefly discussed Invokana on our last visit. In regards to his systolic congestive heart failure with reduced ejection fraction, last echocardiogram showed an EF of 42%. We discussed importance of low-salt diet, heart healthy diet. He did eat a salty meal yesterday, and his weight was slightly up this morning. He denies any increased shortness of breath or chest pain, he denies any increased edema. He is vital is stable today with blood pressure 129/58 and heart rate of 53. His oxygen saturations 98% . He continues to do well on 200 mg of amiodarone, in addition to his Imdur 60 mg daily, metoprolol 25 mg daily, and hydralazine 25 every 8 hours in addition to torsemide 20 mg daily. The patient is on amiodarone therapy, and his AST was slightly elevated will continue to monitor. Ultimately, we would like to see the patient off the amiodarone.He is interested in establishing with a local material control clerk. Referral has been placed. Has felt weakness deconditioning and fatigue, and is not back yet to baseline. He is still also adjusting slowly to the new medications. We discussed that this could be a combination of medications side effects in addition to, deconditioning and chronic medical conditions. He denies any wheezing, any recent falls or injuries. No exacerbations of his lung disease. He continues to be on his Symbicort. We did discuss his colon cancer screening and surveillance which will be due August 19, 2020. The patient will be seen me in the next 2 weeks and we can do a preop for his colonoscopy. Other orders - Community Internal Medicine office visit (clinic) - Cardiovascular Disease - General cardiology consult (clinic); Future - insulin glargine (Lantus U-100 Insulin) 100 unit/mL injection; Inject 24 Units under the skin at bedtime. The patient will follow-up in 2-3 weeks, to discuss other concerns as well as for preoperative evaluation to undergo colonoscopy. Time spent with patient 45 minutes more than 50% in counseling Electronically signed by: Shayla Alford D.O. 07/19/20 12:16 PM CDT documented in this encounter Plan of Treatment Not on filedocumented as of this encounter Results (ABNORMAL) Hepatic Function Panel (10/12/2020 9:15 AM LEGAL WRITING PROFESSOR) [facility] Method Time Signature Bilirubin, Total, P 0.5 <=1.2 10/12/2020 [facility] mg/dL 10:13 AM LEGAL WRITING PROFESSOR Bilirubin, Direct, P <0.2 0.0 - 0.3 10/12/2020 [facility] mg/dL 10:19 AM LEGAL WRITING PROFESSOR Aspartate 32 8 - 48 10/12/2020 [facility] Aminotransferase U/L 10:13 AM LEGAL WRITING PROFESSOR (AST), P Alanine 46 7 - 55 10/12/2020 [facility] Aminotransferase U/L 10:13 AM LEGAL WRITING PROFESSOR (ALT), P Alkaline 135 (H) 40 - 129 10/12/2020 [facility] Phosphatase, P U/L 10:13 AM LEGAL WRITING PROFESSOR Albumin, P 3.9 3.5 - 5.0 10/12/2020 [facility] g/dL 10:13 AM LEGAL WRITING PROFESSOR Protein, Total, P 6.6 6.3 - 7.9 10/12/2020 [facility] g/dL 10:13 AM LEGAL WRITING PROFESSOR Specimen Anatomical Collection Method Collection Time Receive d Time (Source) Location / / Volume Laterality Blood (Blood, 10/12/2020 9:15 AM 10/12/19 9:27 Venous) LEGAL WRITING PROFESSOR AM LEGAL WRITING PROFESSOR Shayla Alford D.O. LAB BLOOD ADD-ON Performing Organization Address City/State/ZIP Code Phon e Number [facility]- [address] [place] [address] [facility] [place] [address] System in [place] [address] (ABNORMAL) CBC with Differential, Blood (10/12/2020 9:15 AM LEGAL WRITING PROFESSOR) [facility] Method Time Signature Hemoglobin 10.0 (L) 13.2 - 10/12/2020 [facility] 16.6 g/dL 9:31 AM LEGAL WRITING PROFESSOR Hematocrit 30.9 (L) 38.3 - 10/12/2020 [facility] 48.6 % 9:31 AM LEGAL WRITING PROFESSOR Erythrocytes 3.29 (L) 4.35 - 10/12/2020 [facility] 5.65 9:31 AM LEGAL WRITING PROFESSOR x10(12)/L MCV 93.9 78.2 - 10/12/2020 [facility] 97.9 fL 9:31 AM LEGAL WRITING PROFESSOR RBC Distrib Width 12.6 11.8 - 10/12/2020 [facility] 14.5 % 9:31 AM LEGAL WRITING PROFESSOR Platelet Count 176 135 - 317 10/12/2020 [facility] x10(9)/L 9:31 AM LEGAL WRITING PROFESSOR Leukocytes 6.1 3.4 - 9.6 10/12/2020 [facility] x10(9)/L 9:31 AM LEGAL WRITING PROFESSOR Neutrophils 4.36 1.56 - 10/12/2020 [facility] 6.45 9:31 AM LEGAL WRITING PROFESSOR x10(9)/L Lymphocytes 0.93 (L) 0.95 - 10/12/2020 [facility] 3.07 9:31 AM LEGAL WRITING PROFESSOR x10(9)/L Monocytes 0.42 0.26 - 10/12/2020 [facility] 0.81 9:31 AM LEGAL WRITING PROFESSOR x10(9)/L Eosinophils 0.28 0.03 - 10/12/2020 [facility] 0.48 9:31 AM LEGAL WRITING PROFESSOR x10(9)/L Basophils 0.06 0.01 - 10/12/2020 [facility] 0.08 9:31 AM LEGAL WRITING PROFESSOR x10(9)/L Specimen Anatomical Collection Method Collection Time Receive d Time (Source) Location / / Volume Laterality Blood (Blood, 10/12/2020 9:15 AM 10/12/19 9:27 Venous) LEGAL WRITING PROFESSOR AM LEGAL WRITING PROFESSOR Shayla Alford D.O. LAB BLOOD ADD-ON Performing Organization Address City/State/ZIP Code Phon e Number [facility]- [address] [place] [address] [place] [address] System in [place] [address] (ABNORMAL) Basic Metabolic Panel (10/12/2020 9:15 AM LEGAL WRITING PROFESSOR) Analysis Performed At Patho logist Time Signature Potassium, P 4.4 3.6 - 5.2 10/12/2020 [facility] mmol/L 10:13 AM LEGAL WRITING PROFESSOR Sodium, P 137 135 - 145 10/12/2020 [facility] mmol/L 10:13 AM LEGAL WRITING PROFESSOR Chloride, P 103 98 - 107 10/12/2020 [facility] mmol/L 10:13 AM LEGAL WRITING PROFESSOR Bicarbonate, P 26 22 - 29 10/12/2020 [facility] mmol/L 10:13 AM LEGAL WRITING PROFESSOR Anion Gap, P 8 7 - 15 10/12/2020 [facility] 10:13 AM LEGAL WRITING PROFESSOR BUN (Blood Urea 41 (H) 8 - 24 10/12/2020 [facility] Nitrogen), P mg/dL 10:13 AM LEGAL WRITING PROFESSOR Creatinine 1.70 (H) 0.74 - 10/12/2020 [facility] 1.35 mg/dL 10:13 AM LEGAL WRITING PROFESSOR eGFR-Black/Afri 44 (L) >=60 10/12/2020 [facility] can Bulgarian mL/min/BSA 10:13 AM LEGAL WRITING PROFESSOR Comment: ----ADDITIONAL INFORMATION---- Estimated GFR calculated using the 2009 CKD_EPI creatinine equation. eGFR Non-Black/ 38 (L) >=60 mL/min/BSA 10/12/2020 10:13 AM LEGAL WRITING PROFESSOR [facility] Bulgarian Comment: ----ADDITIONAL INFORMATION---- Estimated GFR calculated using the 2009 CKD_EPI creatinine equation. Calcium, Total, P 8.8 8.8 - 10.2 mg/dL 10/12/2020 10:1 3 AM LEGAL WRITING PROFESSOR [facility] Glucose, P 305 (H) 70 - 140 mg/dL 10/12/2020 10:13 AM LEGAL WRITING PROFESSOR [facility] Specimen Anatomical Collection Method Collection Time Receive d Time (Source) Location / / Volume Laterality Blood (Blood, 10/12/2020 9:15 AM 10/12/19 9:27 Venous) LEGAL WRITING PROFESSOR AM LEGAL WRITING PROFESSOR Shayla Alford D.O. LAB BLOOD ADD-ON Performing Organization Address City/State/ZIP Code Phon e Number [facility]- [address] [place] [address] [facility] [place] [address] System in [place] [address] documented in this encounter Visit Diagnoses Diagnosis Diabetes Mellitus Type 2 Without Complic ation (HCC) - Primary Chronic Systolic (Congestive) Heart Fail ure (HCC) Pancreatitis Chronic Recurrent (HCC) Hypertension Essential Primary Asthma Extrinsic Moderate (HCC) Hyperlipidemia Elevated Liver Enzyme Abnormal, Aspartat e Transaminase, Serum Glutamic-Oxaloacetic Transaminase, Alanine Transaminase Anemia In Chronic Kidney Disease documented in this encounter Additional Health Concerns Assessment Noted Time PHQ-9 Depression Total Score: 18 04/28/2018 11:27 AM C DT documented as of this encounter Care Teams Loan Inspector Relationship Specialty Start Date End Date Shayla Alford D.O. PCP - General Internal Medicine 05/22/[address] [address] documented as of this encounter
--- OUTSIDE RECORDS SUMMARY | 2022-05-21 11:25 | XMS_ITS | Encounter Summary ---
:1945 Author Organization [facility] Address [address] [place] [address] Care Team Providers Name Role Phone Shayla Alford D.O. Primary Care Provider Reason for Visit Reason Comments Care Coordination Call in Encounter Details Date Type Department Care Team Description 07/10/2020 Patient Outreach [facility] Internal Medicine A, R.N. (Call in) in [place], [facility] [address] [place], [place] [address] [address] [place], [place] [phone] [address] (Work) [phone] Social History Tobacco Use Types Packs/Day Years [...] do you attend pentecostal or Never 2021 mormon services? Do you [...] have completed or the highest Martin, MEd, CAKE PULLER, CAYDEN) degree you have received? Sex Assigned at Date Recorded Male 05/21/2018 2:34 PM CDT documented as of this encounter Progress Notes Ronda Fernandez R.N. - 07/10/2020 8:51 AM CDT Mr. Costa calls in this morning with a concern over some new onset night time bilateral mid back, hip and slight leg pain that begins during the night and causes him to be unable to return to sleep inhis bed. He states he needs to sit in his chair the rest of the night. His concern is that this painis the same as the pain he started having right before his last hospitalization for CHF exacerbationon 05/16/20. At this time his weight is right between 202-203 pounds and it was 201 pounds in my last contact with him on 07/03/20. He denies and SOB or PND. He has a slight amount of edema in his bilateral ankles. His dietary habits have not changed in what he is eating, but he does endorse eating a little bit more in volume the past few days as it was his birthday last week. He denies any fever, chills, cough. He has not done any movements or activities that may be related to this back and hip discomfort. He has not tried taking any OTC pain medications as I dont want to take anything else if I dont have to and unless I'm told to do so. I take enough as it is. He ask his PCP be notified to inquire if she has any thoughts on this pain. He is scheduled for routine follow up on 08/01/20. Please advise. Shayla Alford D.O. - 07/10/2020 8:51 AM CDT Please schedule patient to see me next week. I do have some same day slots available. I would like to reserve 1 hour for the patient due to complicated medical history and multiple concerns. Electronically signed by: Shayla Alford D.O. 07/13/20 2:06 PM CDT Coco Luque C.MJaime - 07/10/2020 8:51 AM CDT completed documented in this encounter Plan of Treatment Not on filedocumented as of this encounter Visit Diagnoses Not on filedocumented in this encounter Additional Health Concerns Assessment Noted Time PHQ-9 Depression Total Score: 18 04/28/2018 11:27 AM C DT documented as of this encounter Care Teams Ship Unloader Relationship Specialty Start Date End Date Shayla Alford D.O. PCP - General Internal Medicine 05/22/20 [address], [place] [address] documented as of this encounter
--- OUTSIDE RECORDS SUMMARY | 2022-05-21 11:25 | XMS_ITS | Encounter Summary ---
:1945 Author Organization [facility] Address [address] [place] [address] Care Team Providers Name Role Phone Shayla Alford D.O. Primary Care Provider [phone] Reason for Visit Reason Comments Care Coordination Monthly billing - 2019 Encounter Details Date Type Department Care Team Description 06/28/2020 [facility] Outreach [facility] Internal [facility] A, R.N. (Monthly billing - in [place], [address] [facility] 2019) [place], [place] [address] [address] [place], [place] [phone] [address] (Work) [phone] Social History Tobacco Use Types Packs/Day Years [...] do you attend jewish or Never 2021 presybeterian services? Do you [...] have completed or the highest Martin, MEd, SUCTION PLATE ROLLER HAND, CAYDEN) degree you have received? Sex [...] documented as of this encounter Care Teams [id number] Tank Crewman Relationship Specialty Start Date End Date Shayla Alford D.O. PCP - General Internal Medicine 05/22/[address] [address] documented as of this encounter
--- OUTSIDE RECORDS SUMMARY | 2022-05-21 11:25 | XMS_ITS | Encounter Summary ---
:1945 Author Organization [facility] Address [address] [place] [address] Care Team Providers Name Role Phone Shayla Alford D.O. Primary Care Provider Reason for Visit Reason Comments Care Coordination follow up Encounter Details Date Type Department Care Team Description 06/20/2020 [facility] A, R.N. (follow up) in [place], [facility] [address] [place], [place] [address] [address] [place], [place] [phone] (Work) [phone] Social History Tobacco Use Types Packs/Day Years [...] do you attend congregational or Never 2021 taoism services? Do you belong to any clubs [...] or the highest Martin, MEd, SLOT MACHINE DEPARTMENT FLOORPERSON, CAYDEN) degree you have received? Sex Assigned at Date Recorded Male 05/21/2018 2:34 PM CDT documented as of this encounter Progress Notes Ronda Fernandez RMauroN. - 06/20/2020 2:57 PM CDT SUBJECTIVE REASON FOR VISIT Adult Medical Care Coordination Follow-Up HISTORY OF PRESENT ILLNESS Jonnathan Costa reports he had no unplanned visits for healthcare since last contact. Summary of the discussion: I feel very weak. I couldn't even swing my legs up into my low tractor today and that was concerning to me.I had been on my feet all day and was tired, but still not right. Mr. Costa also stated In the last 4-5 days I have not had diarrhea and that's the first time in 3-4 years. So I think my pancreas is calming down for a bit. I do have company coming shortly so I can't talk long as I need to get in the shower and get ready.But I did bump my leg earlier and boy did I bleed. Its not now, but it really did earlier. He continues to also have some of his medical care followed by the MD in [place]. Upcoming [place] appointments were reviewed. Patient's plan of care was discussed and mailed to him via [employer] at this time. Chronic disease follow up: Asthma- No issues or concerns. DM2- It was 170 this morning, the highest its been in a long time, its usually 140s when I check in the morning. I ate more yesterday because it tasted so good. Mr. Costa is eating a very carb and sugar controlled diet and is well aware of his symptoms of hypoglycemia, but has not had any issues with hypoglycemia lately. CHF- His weight is up to 205 pounds in the last few days. He denies any LE edema or shortness of breath, or PND. Patient believes his CHF is well controlled and the weight increase is not related to his heart. HTN- He does not check his BP at home as he does not think his cuff is reliable. Medication concerns: Medication is??managed by family member,??his .??But he helps as well.??He uses a twice a day pill box. Physical functioning: Patient states he is walking more and doing more for himself, but continues to be weak. He discussedgetting a membership to [employer] to work on his LE strength. Goals Addressed This Visit's Progress Patient Stated ??? I want to see my grandbabies graduate. (pt-stated) On track ??? I'm going to start restoring a tractor. (pt-stated) No change ??? Next summer I'd like to do [...] provider prior to starting new medications, including [id number] and herbal supplements. PROBLEM SOLVING -Recognize barriers [...] clinic business hours. After clinichours, call Expert food and nutrition services supervisor Line for concerning symptoms. Call . Appointment line: For Family Medicine appointments in [place] call [phone] or Internal Medicine appointments [phone]. To reschedule or cancel an appointment with your RN Electrician Wiring, call or leave a message through the switchboard at [phone]. Nurse Electrician Wiring: ALLEY Bond. You may call Friday-Friday from 7:30-4:00. Primary Care: Keep regular follow-up appointments with your Primary Care Provider. Call your Care Team during office hours or call the clinic (above numbers). You may also send a message to your Provider or Electrician Wiring/ Care Team through your Patient Online Services [...] apple juice ? cup cooked cereal ??? [place] ? cup haresh freddy ? cup sherbet [...] of concern noted by patient. Advanced Directives: Patient does have one, but is not on file ASSESSMENT/PLAN Red flags: Asthma: very short of breath and difficulty walking and talking due to shortness of breath , Heart Failure: shortness of breath with exertion, shortness of breath when lying down, weight gain or loss of more than 5 lbs in 2 days, swelling in legs, ankles or feet and rapid or irregular heartbeat and Hyp ertension: fatigue and difficulty breathing Jonnathan Costa was able to verbalize personal red flags for worsening of Asthma, DM2, HTN, CHF. and is able to respond appropriately to the symptoms. Health Maintenance: not addressed. Next contact type: Phone Call. Discussion items for the next contact include: Asthma, DM2, CHF, HTN; his strength, discuss graduation. The patient was instructed to contact the medication care manager with any questions or concerns and statedunderstanding of the information provided. Disposition/Recommendation: self-care of chronic medical conditions appropriate at this time, patient encouraged to [...] documented as of this encounter Care Teams Filter Tank Tender Helper Head Relationship Specialty Start Date End Date Shayla Alford D.O. PCP - General Internal Medicine 05/22/[address] [phone] (work) documented as of this encounter
--- OUTSIDE RECORDS SUMMARY | 2022-05-21 11:25 | XMS_ITS | Encounter Summary ---
:1945 Author Organization [facility] Address [address] [place] [address] Care Team Providers Name Role Phone Shayla Alford D.O. Primary Care Provider [phone] Encounter Details Date Type Department Care Team Description 2020 Orders Only Department of Internal Selvin Alford [facility] Risk Medication Medicine in Shayla Dixon, DKyle Wade (Primary Dx) [place] [address] [place] [phone] Social History Tobacco Use Types Packs/Day Years [...] do you attend moravian or Never 2021 samaritan services? Do you [...] have completed or the highest Martin, MEd, DEVELOPER PROGRAMMER, CAYDEN) degree you have received? Sex Assigned at Date Recorded Male 05/21/2018 2:34 PM CDT documented as of this encounter Plan of Treatment Not on filedocumented as of this encounter Results (ABNORMAL) Hepatic Function Panel (03/21/2021 9:29 AM CDT) [facility] gist Method Time Signature Bilirubin, Total, P 0.3 [...] e Number [facility]- [address] [place] [address] [facility] [place] [place] [address] System in [place] [address] documented in this encounter Visit Diagnoses Diagnosis High Risk Medication - Primary documented in this encounter Additional Health Concerns Assessment Noted Time PHQ-9 Depression Total Score: 18 04/28/2018 11:27 AM C DT documented as of this encounter Care Teams Sanitary Aide Relationship Specialty Start Date End Date Shayla Alford D.O. PCP - General Internal Medicine 05/22/[address] [place] [address] documented as of this encounter
--- OUTSIDE RECORDS SUMMARY | 2022-05-21 11:25 | XMS_ITS | Encounter Summary ---
:1945 Author Organization [facility] Address [address] [place] [address] Care Team Providers Name Role Phone Shayla Alford D.O. Primary Care Provider [phone] Reason for Visit Reason Comments Care Coordination Follow Up Encounter Details Date Type Department Care Team Description 08/17/2020 Patient Out[facility] Internal Medicine A, R.N. (Follow Up) in [place], [facility] [address] [place], [place] [address] [address] [place], [place] [phone] [address] (Work) [phone] Social History Tobacco Use Types Packs/Day Years [...] do you attend mosque or Never 2021 temple services? Do you [...] have completed or the highest Martin, MEd, MEDTRONICS TECHNICIAN, CAYDEN) degree you have received? Sex Assigned at Date Recorded Male 05/21/2018 2:34 PM CDT documented as of this encounter Progress Notes Ronda Fernandez R.N. - 08/17/2020 12:44 PM CST I called Mr. Costa for Adult Medical Care Coordination program follow up, but he was just getting into his car to go into town and asked that I call him back at about 3:45 today. I dont have a lot tosay, but I do have a few things, so it shouldn't take much time. I confirmed that I would try to call him at that time. STRIAL HYGIENIST Ronda Fernandez R.N. - 08/17/2020 12:44 PM CST SUBJECTIVE REASON FOR VISIT Adult Medical Care Coordination Follow-Up HISTORY OF PRESENT ILLNESS Jonnathan Costa reports he had no unplanned visits for healthcare since last contact. Summary of the discussion: Patient states he is feeling well and his only concern is about the slight increase in his weight. Chronic disease follow up: Asthma- no concerns at this time. ?? CHF- His weight has been 206-208 pounds each day. His lowest weight was 199 pounds a month or so agoand he says he is doing more physical activity and thinks this is mostly an increase in muscle mass. He does have a slight amount of LE edema up to about 2 inches above my ankle and he says an increase in LE edema is typically the big red flag for him. His weight has not gone up more than 3 pounds since yesterday though. We reviewed ways to decrease LE edema, including elevation of his legs, wearing compression stockings and further decreasing sodium intake. He will do these things and should his weight or edema continue to increase, we discussed the importance of notifying his PCP. He does limitsodium intake, but continues to work on decreasing it in his diet further. DM2- I feel great but some days I struggle keeping my blood sugar down. It's because I'm eating thewrong things, but I'm working on it. For example, this morning his blood sugar was 118, then he atea bowl of ice cream and his blood sugars went up to 440. ??He acknowledges that the ice cream was not a rinaldi choice and will work on healthier eating habits. HTN- No concerns at this time. Medication concerns: None at this time. Physical functioning: He is able to walk a mile a few days ago with no problem, besides having some weak legs near the end. To help with leg strength he has been walking stairs. His goal is to walk 3 miles a day 3 days a week. Goals Addressed This Visit's Progress Patient Stated [...] provider prior to starting new medications, including kuzq-sff-mbzktrt and herbal supplements. PROBLEM SOLVING -Recognize barriers [...] clinic business hours. After clinichours, call Expert care analyst Line for concerning symptoms. Call . Appointment line: For Family Medicine appointments in [place] call [phone] or Internal Medicine appointments [phone]. To reschedule or cancel an appointment with your RN Military Technician, call or leave a message through the switchboard at [phone]. Nurse Military Technician: ALLEY Bond. You may call Friday-Friday from 7:30-4:00. Primary Care: Keep regular follow-up appointments with your Primary Care Provider. Call your Care Team during office hours or call the clinic (above numbers). You may also send a message to your Provider or Military Technician/ Care Team through your Patient Online Services [...] apple juice ? cup cooked cereal ??? [place] ? cup haresh freddy ? cup sherbet [...] Directives: Available on file ASSESSMENT/PLAN Red flags: No red flags for Asthma, CHF, HTN, or DM2 at this time Jonnathan Costa was able to verbalize personal red flags for worsening of Asthma, CHF, HTN, andDM2. and is able to respond appropriately to the symptoms. Health Maintenance: not addressed. Next contact type: Virtual visit. Discussion items for the next contact include: Asthma, CHF, HTN, DM2, process for when he notices red flags, graduation from the Adult Medical Care Coordination program. The patient was instructed to contact the resident care aid with any questions or concerns and statedunderstanding of the information provided. Disposition/Recommendation: recommended continue engagement in self-management activities Education: patient/caller able to teach back Caller agreeable to plan of care: yes The following references were used: none STRIAL HYGIENIST documented in this encounter Plan of Treatment Not on filedocumented as of this encounter Visit Diagnoses Not on filedocumented in this encounter Additional Health Concerns Assessment Noted Time PHQ-9 Depression Total Score: 18 04/28/2018 11:27 AM C DT documented as of this encounter Care Teams Loss Prevention Leader Relationship Specialty Start Date End Date Shayla Alford D.O. PCP - General Internal Medicine 05/22/[address] [place] [phone] documented as of this encounter
--- OUTSIDE RECORDS SUMMARY | 2022-05-21 11:25 | XMS_ITS | Encounter Summary ---
:1945 Author Organization [facility] Address [address] [place] [address] Care Team Providers Name Role Phone Shayla Alford D.O. Primary Care Provider [phone] Reason for Visit Outpatient (Routine) - Closed Specialty Diagnoses / Procedures Referred By Contact Refer red To Contact Pulmonary Medicine Diagnoses Asthma Extrinsic Moderate (HCC) Chronic Systolic (Congestive) Heart Failure (HCC) Effusion Pleural Dyspnea Multifactorial [facility] Shayla, D.OMauro [address] [place] [address] Referral ID Status Reason Start Date Expiration Date Visits V isits Requested Authorized [id number] Closed Specialty 05/16/2020 05/16/2021 1 1 Services Required Encounter Details Date Type Department Care Team Description 06/14/2020 Office Visit Division of Ailyn Sims Asthma Ex trinsic Moderate (HCC); Pulmonary Medicine Pato Duque Chronic Systolic (Congestive) Heart Fail ure (HCC); in [place], [facility] [address] Effusion Pleural; [place], [place] Dyspnea Multifactorial [address] [address] [place], [place] [phone] (Wo rk) [address] [phone] Social History Tobacco Use Types Packs/Day Years [...] do you attend evangelical or Never 2021 confucianist services? Do you [...] have completed or the highest Martin, MEd, ENDOSCOPY TECHNICIAN, CAYDEN) degree you have received? Sex Assigned at Date Recorded Male 05/21/2018 2:34 PM CDT documented as of this encounter Last Filed Vital Signs Vital Sign Reading Time Taken Comments Blood Pressure - - Pulse - - Temperature - - Respiratory Rate - - Oxygen Saturation 96% 06/14/2020 3:48 PM CDT Inhaled Oxygen Concentration - - Weight - - Height - - Body Mass Index - - documented in this encounter Progress Notes Ailyn Sims M.D. - 06/14/2020 4:00 PM CDT Patient returns to review test results and finalize next steps. Height 190 cm weight 100 kg SpO2 96% heart rate 50-65 BP 120/70 General appearance-alert, cooperative, in no acute distress. Able to speak full sentences without stridor, cough or wheeze. Lungs-clear without crackles, wheeze or consolidation. Heart-normal S1, S2. JVP normal. No peripheral edema. Extremities-cyanosis, tremor, clubbing or edema. Slightly slow to get up to exam table. Assessment/plan: #1 Coronary artery disease with probable chronotropic insufficiency and deconditioning Patient has had resting bradycardia with concerns of blunted heart rate response to exercise and exacerbation of fatigue. Will likely benefit from decreasing beta-chasidy from 50 mg daily to 25 mg daily. Further dose adjustments to Imdur and amiodarone will be reassessed by local MD and cardiac team. Mr. Costa does have follow-up with Dr. Alford on June 30 and will continue monitoring pulse oximeter, daily weights, and dietary restrictions with help of his and daughter. #2 Mild asthma with elevated oral exhaled nitric oxide level Spirometry and oral exhaled nitric oxide level improved (FEV1 3.31 L-100% predicted, oral LAINEY < 39 ppb). Continue Symbicort 1-2 puffs twice daily and p.r.n. albuterol. Continue efforts at regular exercise conditioning with supportive exercise bicycle and any other tips from local PT-OT. Reminded to gargle after Symbicort use. Continue annual influenza vaccination. #3 Type 2 diabetes mellitus #4 History of mild TIAs-on Plavix #5 Hypertension-controlled #6 History of bladder cancer documented in this encounter Plan of Treatment Not on filedocumented as of this encounter Visit Diagnoses Diagnosis Asthma Extrinsic Moderate (HCC) Chronic Systolic (Congestive) Heart Fail ure (HCC) Effusion Pleural Dyspnea Multifactorial documented in this encounter Additional Health Concerns Assessment Noted Time PHQ-9 Depression Total Score: 18 04/28/2018 11:27 AM C DT documented as of this encounter Care Teams Perianesthesia Manager Relationship Specialty Start Date End Date Shayla Alford D.O. PCP - General Internal Medicine 05/22/[address] [place] [phone] documented as of this encounter
--- OUTSIDE RECORDS SUMMARY | 2022-05-21 11:25 | XMS_ITS | Encounter Summary ---
:1945 Author Organization [facility] Address [address] [place] [address] Care Team Providers Name Role Phone Shayla Alford D.O. Primary Care Provider [phone] Reason for Visit Reason Comments Care Coordination Monthly billing- Jun 2020 Encounter Details Date Type Department Care Team Description 07/29/2020 Patient Outreach Department of Westley Sommer Improvement Lead rdination Internal Medicine in nShayla D .OMauro (Monthly billing- Jun [place], [place] [address]) [address] [place] [phone] Social History Tobacco Use Types Packs/Day [...] or relatives? How often do you attend congregation or Never 2021 islam services? Do you belong to any clubs or No 10/09/2021 organizations such as congregation groups, unions, fraternal or athletic groups, or [...] have completed or the highest Martin, MEd, CHIEF ENGINEER, CAYDEN) degree you have received? Sex Assigned at Date Recorded Male 05/21/2018 2:34 PM CDT documented as of this encounter Plan of Treatment Not on filedocumented as of this encounter Visit Diagnoses Diagnosis Acute On Chronic Systolic (Congestive) H eart Failure (HCC) Diabetes Mellitus Type 2 Without Complic ation (HCC) Hypertension Essential Primary Asthma Extrinsic Moderate (HCC) documented in this encounter Additional Health Concerns Infection Onset Date Last Indicated Resolved Time COVID19 Pending 08/21/2020 08/21/2020 08/22/2020 6:39 AM SHIPPING TRACK SUPERVISOR Assessment Noted Time PHQ-9 Depression Total Score: 18 04/28/2018 11:27 AM C DT documented as of this encounter Care Teams Combat Systems Operator Relationship Specialty Start Date End Date Shayla Alford D.O. PCP - General Internal Medicine 05/22/[address], [place] [address] documented as of this encounter
--- OUTSIDE RECORDS SUMMARY | 2022-05-21 11:25 | XMS_ITS | Encounter Summary ---
:1945 Author Organization [facility] Address [address] [place] [address] Care Team Providers Name Role Phone Shayla Alford D.O. Primary Care Provider [phone] Encounter Details Date Type Department Care Team Description 08/21/2020 Admin Visit Department of Family Medicine, [address] [address] [facility] [phone] Social History Tobacco Use Types Packs/Day Years [...] do you attend druze or Never 2021 amish services? Do you [...] completed or the highest Martin, MEd, GAS TURBINE POWERPLANT MECHANIC, CAYDEN) degree you have received? Sex Assigned at Date Recorded Male 05/21/2018 2:34 PM CDT documented as of this encounter Plan of Treatment Not on filedocumented as of this encounter Visit Diagnoses Not on filedocumented in this encounter Additional Health Concerns Infection Onset Date Last Indicated Resolved Time COVID19 Pending 08/21/2020 08/21/2020 08/22/2020 6:39 AM PRODUCTION CONTROL SPECIALIST Assessment Noted Time PHQ-9 Depression Total Score: 18 04/28/2018 11:27 AM C DT documented as of this encounter Care Teams Supervisor Front Relationship Specialty Start Date End Date Shayla Alford D.O. PCP - General Internal Medicine 05/22/20 [address] [place] [address] documented as of this encounter
--- OUTSIDE RECORDS SUMMARY | 2022-05-21 11:25 | XMS_ITS | Encounter Summary ---
:1945 Author Organization [facility] Address [address] [place] [address] Care Team Providers Name Role Phone Shayla Alford D.O. Primary Care Provider [phone] Reason for Visit Reason Comments Care Coordination Follow Up Encounter Details Date Type Department Care Team Description 07/25/2020 Patient Outreach [facility] Internal Medicine A, R.N. (Follow Up) in [place], [facility] [address] [place], [place] [address] [address] [place], [place] [phone] [address] (Work) [phone] Social History Tobacco Use Types Packs/Day Years [...] or relatives? How often do you attend bahai or Never 2021 bahai services? Do you belong to any clubs or No 10/09/2021 organizations such as bahai groups, unions, fraternal or athletic groups, or [...] have completed or the highest Martin, MEd, OFFENSIVE COORDINATOR, CAYDEN) degree you have received? Sex Assigned at Date Recorded Male 05/21/2018 2:34 PM CDT documented as of this encounter Progress Notes Ronda Fernandez R.N. - 07/25/2020 2:47 PM CDT Patient called for care coordination follow up, but was unable to reach. Message left, and patient was asked to return my call. Phone number provided. Ronda Fernandez R.N. - 07/25/2020 2:47 PM CDT SUBJECTIVE REASON FOR VISIT Adult Medical Care Coordination Follow-Up HISTORY OF PRESENT ILLNESS Jonnathan Costa reports he had no unplanned visits for healthcare since last contact. Summary of the discussion: Patient is currently at his [facility] in [place]. He says he is feeling really well and has no questions or concerns at this time. Chronic disease follow up: Asthma- No concerns at this time. ?? CHF- Denies any change of baseline symptoms. Mr. Costa says his weight lately has been between 201-204 pounds. No shortness of breath. ?? DM2- He reports that his blood sugar was 104 this morning, at night it's getting close to 200, thenI take some insulin. He denies having and hypo/hyperglycemia episodes since our last call. ?? HTN- My blood pressure has been good. But that's without having any hard fast numbers to give to you. Medication concerns: None at this time. He is considering decreasing his Trazodone as he feels he is sleeping really welland you dont know if you can do without it until you try. I encouraged him to message or call his PCP when he is ready to decrease it so she can advise on the dose to take. He was in agreement with this. Physical functioning: I'm getting stronger every day, I can walk a mile now, when I couldn't walk 50 feet a month ago. Goals Addressed This Visit's Progress Patient Stated [...] provider prior to starting new medications, including chto-zmf-ytcapti and herbal supplements. PROBLEM SOLVING -Recognize barriers [...] Plan:Who to Call for More Support Follow DrMauro recommendations or call your Clinic Care Team during clinic business hours. After clinichours, call Expert rug setter [place] Line for concerning symptoms. Call . Appointment line: For Family Medicine appointments in [place] call [phone] or Internal Medicine appointments [phone]. To reschedule or cancel an appointment with your RN Aircraft Engine Mechanic Supervisor, call or leave a message through the switchboard at [phone]. Nurse Aircraft Engine Mechanic Supervisor: ALLEY Bond. You may call Friday-Friday from 7:30-4:00. Primary Care: Keep regular follow-up appointments with your Primary Care Provider. Call your Care Team during office hours or call the clinic (above numbers). You may also send a message to your Provider or Aircraft Engine Mechanic Supervisor/ Care Team through your Patient Online Services [...] apple juice ? cup cooked cereal ??? [place] ? cup haresh freddy ? cup sherbet [...] Available on file ASSESSMENT/PLAN Red flags: Patient denies any red flags for Asthma, CHF, DM2, or HTN at this time. Jonnathan Costa was able to verbalize personal red flags for worsening of Asthma, CHF, DM2, orHTN. and is able to respond appropriately to the symptoms. Health Maintenance: none. Next contact type: Phone Call. Discussion items for the next contact include: Asthma, CHF, DM2, HTN. Discuss graduation. The patient was instructed to contact the hiv/aids care nurse with any questions or concerns and statedunderstanding [...] documented as of this encounter Care Teams Photolithographer Relationship Specialty Start Date End Date Shayla Alford D.O. PCP - General Internal Medicine 05/22/20 [address] [place] [phone] documented as of this encounter
--- OUTSIDE RECORDS SUMMARY | 2022-05-21 11:25 | XMS_ITS | Encounter Summary ---
:1945 Author Organization [facility] Address [address] [place] [address] Care Team Providers Name Role Phone Shayla Alford D.O. Primary Care Provider [phone] Encounter Details Date Type Department Care Team Description 06/14/2020 Diagnostic Division of Pulmonary Rocío As thma Extrinsic Moderate (HCC); Medicine in [place], Gianna Mcguire Effusion Pleural; [place] [address] Dyspnea Multifactorial [address] [place], [place] [address] [phone] Social History Tobacco Use Types Packs/Day Years [...] do you attend spiritism or Never 2021 jew services? Do you [...] have completed or the highest Martin, MEd, SAND CUTTER OPERATOR, CAYDEN) degree you have received? Sex Assigned at Date Recorded Male 05/21/2018 2:34 PM CDT documented as of this encounter Plan of Treatment Not on filedocumented as of this encounter Procedures Procedure Name Priority Date/Time Associated Diagnosis Comme nts EXHALED NITRIC Routine 06/14/2020 2:29 PM Asthma Extrinsic Res ults for this OXIDE CDT Moderate (HCC) procedure are in Effusion Pleural the results Dyspnea Multifactorial secti on. documented in this encounter Results PUL Exhaled Nitric Oxide (06/14/2020 2:29 PM CDT) P athologist Signature Exhaled NO Oral 36.5 MMODAL Parts per 39 MMODAL billion (ULN) Specimen (Source) Anatomical Location Collection Method / Collectio n Time Received Time / Laterality Volume Shayla Alford D.O. PFT ORDERABLES Performing Organization Address City/State/ZIP Code Phon e Number MMODAL MMODAL NA documented in this encounter Visit Diagnoses Diagnosis Asthma Extrinsic Moderate (HCC) Effusion Pleural Dyspnea Multifactorial documented in this encounter Additional Health Concerns Assessment Noted Time PHQ-9 Depression Total Score: 18 04/28/2018 11:27 AM C DT documented as of this encounter Care Teams Beet End Supervisor Relationship Specialty Start Date End Date Shayla Alford D.O. PCP - General Internal Medicine [facility] [place] [address] documented as of this encounter
--- OUTSIDE RECORDS SUMMARY | 2022-05-21 11:25 | XMS_ITS | Encounter Summary ---
:1945 Author Organization [facility] Address [address] [place] [address] Care Team Providers Name Role Phone Shayla Alford D.O. Primary Care Provider [phone] Encounter Details Date Type Department Care Team Description 07/10/2020 Clinical Communication Department of Internal Andrei Dejesus Medicine in [place], [place], D.O Mauro [place] [address] [place] [phone] Social History Tobacco Use Types Packs/Day Years [...] do you attend holiness or Never 2021 alevism services? Do you belong to any clubs or No 10/09/2021 organizations such as holiness groups, unions, fraternal or athletic groups, or [...] have completed or the highest Martin, MEd, HAULING CONTRACTOR, CAYDEN) degree you have received? Sex Assigned at Date Recorded Male 05/21/2018 2:34 PM CDT documented as of this encounter Miscellaneous Notes Telephone Encounter - Coco Luque, C.M.A. - 07/13/2020 2:29 PM CDT SUBJECTIVE CHIEF COMPLAINT / REASON FOR CALL No chief complaint on file. PLAN The following information was provided: Patient notified to make an appt next week with DR Reid, transferred to scheduling Please schedule patient to see me next week. I do have some same day slots available. I would like to reserve 1 hour for the patient due to complicated medical history and multiple concerns. Electronically signed by: Shayla Alford D.O. 07/13/20 2:06 PM CDT ?? Information/Education: patient/caller able to teach back The following references were used: provider Shayla Dejesus DO documented in this encounter Plan of Treatment Not on filedocumented as of this encounter Visit Diagnoses Not on filedocumented in this encounter Additional Health Concerns Assessment Noted Time PHQ-9 Depression Total Score: 18 04/28/2018 11:27 AM C DT documented as of this encounter Care Teams Processing Operator Relationship Specialty Start Date End Date Shayla Alford D.O. PCP - General Internal Medicine 05/22/[address] [phone] documented as of this encounter
--- OUTSIDE RECORDS SUMMARY | 2022-05-21 11:25 | XMS_ITS | Encounter Summary ---
:1945 Author Organization [facility] Address [address] [place] [address] Care Team Providers Name Role Phone Shayla Alford D.O. Primary Care Provider Reason for Visit Reason Onset Date Comments Outpatient COVID-19 Testing 08/21/2020 Encounter Details Date Type Department Care Team Description 08/21/2020 External Outreach Department of Chad Pettit Infect ion Upper Internal Medicine in J, D.O. Respiratory (Primary [place], [place] [address] Dx) [address] [place] [phone] Social History Tobacco Use [...] do you attend judaism or Never 2021 hindu services? Do you belong to any clubs or No 10/09/2021 organizations such as judaism groups, unions, fraternal or athletic groups, or [...] have completed or the highest Martin, MEd, ADMINISTRATIVE UNDERWRITER, CAYDEN) degree you have received? Sex Assigned at Date Recorded Male 05/21/2018 2:34 PM CDT documented as of this encounter Progress Notes Deborah Valles, R.N. - 08/21/2020 10:54 AM CST Encounter created for the drive-through COVID-19 testing. CTOR MONEY documented in this encounter Plan of Treatment Not on filedocumented as of this encounter Procedures Procedure Name Priority Date/Time Associated Diagnosis Comme nts SARS CORONAVIRUS-2 Routine 08/21/2020 3:00 PM Infection Upper Results for this RNA, V DIRECTOR MONEY Respiratory procedure are i n the results section. documented in this encounter Results SARS Coronavirus-2 RNA, V Symptomatic (08/21/2020 3:00 PM DIRECTOR MONEY) [facility] Method Time Signature SARS-CoV-2 Swab, 08/22/2020 MKTO Specimen Nasopharynx 6:38 AM DIRECTOR MONEY Source SARS CoV-2 Undetected Undetected 08/22/2020 MKTO RNA, TMA 6:38 AM DIRECTOR MONEY Comment: SARS-CoV-2 RNA absent. This result does not rule out COVID-19 in the patient, as the sensitivity of the test depends o n the timing of the specimen collection and the quality of the specim en. Result should be correlated with patient's history and clinical presentat ion. ----ADDITIONAL INFORMATION---- This test is performed using the Aptima SARS-CoV-2 assay ([employer] which has received Emergency Use Authori zation (EUA) by the U.S. Food and Drug Administration. Fact sheets for this Emergency Use Autho rization (EUA) assay can be found at the following links: For Healthcare Providers: https://www.Apmetrix a.gov/media/610667/download For Patients: https://www.fda.gov/media/ 832554/download Specimen Anatomical Collection Method Collection Time Receive d Time (Source) Location / / Volume Laterality Varies 08/21/2020 3:00 PM 0 9:34 (Nasopharynx) DIRECTOR MONEY PM DIRECTOR MONEY Chad Pettit D.O. LAB MICROBIOLOGY - GENERAL O GERMAN Performing Organization Address City/State/[facility] Phon e Number [facility]- [address] [place] [id number] [place] [address] [place] [address] System in [address] documented in this encounter Visit Diagnoses Diagnosis Infection Upper Respiratory - Primary documented in this encounter Additional Health Concerns Infection Onset Date Last Indicated Resolved Time COVID19 Pending 08/21/2020 08/21/2020 08/22/2020 6:39 AM DIRECTOR MONEY Assessment Noted Time PHQ-9 Depression Total Score: 18 04/28/2018 11:27 AM C DT documented as of this encounter Care Teams Publishing Manager Relationship Specialty Start Date End Date Shayla Alford D.O. PCP - General Internal Medicine 05/22/20 [address] [place] [phone] documented as of this encounter
--- OUTSIDE RECORDS SUMMARY | 2022-05-21 11:25 | XMS_ITS | Encounter Summary ---
:1945 Author Organization [facility] Address [address] [place] [address] Care Team Providers Name Role Phone Shayla Alford D.O. Primary Care Provider Reason for Referral Outpatient (Routine) - Closed Specialty Diagnoses / Procedures Referred By Contact Refer red To Contact Diagnoses Personal History Of Malignant Neoplasm Of Bladder Prasanna Bernal M.D. [facility] Region Procedures Cystoscopy (specific provider) [address] [place] [address] Referral ID Status Reason Start Date Expiration Date Visits Requ ested Visits Authorized [id number] Closed 06/12/2020 06/12/2021 1 1 Reason for Visit Reason Comments Bladder Cancer 6 month cystoscopy Outpatient (Routine) - Canceled Specialty Diagnoses / Procedures Referred By Contact Refer red To Contact Diagnoses Personal History Of Malignant Neoplasm Of Bladder [facility]. [facility] Procedures Cystoscopy (specific provider) [address] [place] [phone] Referral ID Status Reason Start Date Expiration Date Visits V isits Requested Authorized [id number] Canceled 11/25/2019 11/24/2020 1 1 Encounter Details Date Type Department Care Team Description 06/12/2020 Procedure visit Department of Urology Prasanna Bernal, Personal History Of laron Patel M.D. Malignant Neoplasm Of [place] [address] Bladder [address] [place], [place] [phone] Social History Tobacco Use Types Packs/Day [...] do you attend baptist or Never 2021 mandaen services? Do you [...] have completed or the highest Martin, MEd, CLINICAL SERVICES MANAGER, CAYDEN) degree you have received? Sex Assigned at Date Recorded Male 05/21/2018 2:34 PM CDT documented as of this encounter Last Filed Vital Signs Vital Sign Reading Time Taken Comments Blood Pressure 117/52 06/12/2020 2:49 PM CDT Pulse 52 06/12/2020 2:49 PM CDT Temperature 37.1 ??C (98.8 ??F) 06/12/2020 2:49 PM CDT Respiratory Rate - - Oxygen Saturation 97% 06/12/2020 2:49 PM CDT Inhaled Oxygen Concentration - - Weight - - Height - - Body Mass Index - - documented in this encounter Procedure Notes Prasanna Bernal M.D. - 06/12/2020 3:00 PM CDT Images from the original note were not included. Signed CHIEF COMPLAINT / REASON FOR VISIT ?? CYSTOSCOPY REPORT ? INDICATION Bladder cancer. ?? 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 Urine cytology collected on June 06, 2020 was negative.? INSTRUMENT Flexible cystoscope. ?? ANESTHESIA 2% aqueous [...] 4 cm. Lateral lobes: ??Well resected with moderate non-obstructing??apical tissue present. ? Middle lobe: ??Absent. Bladder neck: ??Unremarkable. Bladder: ??Residual urine: Minimal. Ureteral orifices: Singular bilaterally, normal position on the trigone, slit- like in configuration and with clear efflux of urine noted bilaterally. Trabeculation: Mild. Foreign bodies: No evidence of stones, tumors, exophytic lesions or other foreign bodies. ?? COMMENTS The procedure was well tolerated by the patient. ??He was discharged from the office in satisfactorycondition. Post-cystoscopy instructions were reviewed with him. ?? IMPRESSION / REPORT / PLAN 1. History of bladder cancer, no cystoscopic evidence of recurrent ??disease 2. Benign prostatic hypertrophy, improved following GreenLight photoselective vaporization of the prostate. ? PLAN: Return to clinic in 1 year for bladder cancer surveillance, this will include cystoscopy and urine cytology. Electronically signed by: Prasanna Bernal M.D. 06/12/20 3:22 PM CDT ?? documented in this encounter Plan of Treatment Not on filedocumented as of this encounter Results (ABNORMAL) Cytology Non-INTERIOR DESIGN PROGRAM CHAIR (Scheduled) (06/18/2021 9:08 AM CDT) Component Value Ref Test Analysis Performed At [facility] Method Time Signature 06/19/2021 HKCY (A) 9:32 AM CDT Fixative 50% reagent 06/19/2021 HKCY alcohol (A) 9:32 AM CDT Report CASSIUS [place]. Ch.B. 06/19/2021 HKCY electronically 9:32 AM CDT [...] Organization Address City/State/ZIP Code Phon e Number [facility]- [address] [place] [address] [place] [address] documented in this encounter Visit Diagnoses Diagnosis Personal History Of Malignant Neoplasm O f Bladder documented in this encounter Additional Health Concerns Assessment Noted Time PHQ-9 Depression Total Score: 18 04/28/2018 11:27 AM C DT documented as of this encounter Care Teams Assembler Rubber Footwear Relationship Specialty Start Date End Date Shayla Alford D.O. PCP - General Internal Medicine 05/22/20 [address] [place] [phone] documented as of this encounter
--- OUTSIDE RECORDS SUMMARY | 2022-05-21 11:26 | XMS_ITS | Encounter Summary ---
:1945 Author Organization [facility] Address [address] [place] [address] Care Team Providers Name Role Phone Shayla Alford D.O. Primary Care Provider [phone] Encounter Details Date Type Department Care Team Description 05/25/2020 Hospital Encounter Department of Prateek Da Silva Essential Primary; Laboratory Medicine Pato Ojeda Failure Heart (HCC) in [place], [address] [place]AMIE [place], [place] [address] [facility] [address] [place], [place] [phone] [address] (Work) [phone] Social History Tobacco Use Types Packs/Day Years [...] do you attend mandaeism or Never 2021 uatsdin services? Do you [...] have completed or the highest Martin, MEd, KNIT GOODS MENDER, CAYDEN) degree you have received? Sex Assigned [...] Reports checking 4-5 0 strips times daily. cholecalciferol, vitamin Take 1,000 Units by 0 [...] mg tablet daily. budesonide-formoteroL Inhale 2 puffs 2 1 Inhaler 11 12/16/19 20 06/30/2020 (SYMBICORT) 160-4.5 (two) times a day. mcg/actuation Start at 1 puff inhalerIndications: twice daily x 4 Asthma Extrinsic Moderate weeks, then 2 puffs (HCC) twice daily if tolerated. gemfibroziL (LOPID) 600 Take 1 tablet by [...] by mouth tabletIndications: daily. 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 As directed per DR capsule ujxkzc-pajwldhs-ilnqupw Take 1 capsule by 0 10/12/2020 (CREON) mouth as needed for 6,000-19,000-30,[address] capsule zlqeoc-jwxrnayl-mpfiwfz Take 1 capsule by 0 10/12/2020 (rhqsoa-pvpawxms-irunkup) mouth 3 (three) 6,000-19,000-30,000 Unit times a [...] Associated Diagnosis Comme nts CBC WITHOUT Routine 05/25/2020 10:42 Failure Heart (HCC) Resu lts for this DIFFERENTIAL, B AM CDT procedure ar e in the results section. BASIC METABOLIC Routine 05/25/2020 10:42 Hypertension Results for this PANEL, S/P AM CDT Essential Primar y procedure are in Failure Heart (HCC) the resu lts section. documented in this encounter Results (ABNORMAL) CBC without Differential (05/25/2020 10:42 AM CDT) [facility] gist Method Time Signature Hemoglobin 10.3 (L) 13.2 - 05/25/2020 FB60 16.6 g/dL 11:02 AM CDT Hematocrit 31.4 (L) 38.3 - 05/25/2020 FB60 48.6 % 11:02 AM CDT Erythrocytes 3.42 (L) 4.35 - 05/25/2020 FB60 5.65 11:02 AM CDT x10(12)/L MCV 91.8 78.2 - 05/25/2020 FB60 97.9 fL 11:02 AM CDT RBC Distrib Width 14.6 (H) 11.8 - 05/25/2020 FB60 14.5 % 11:02 AM CDT Platelet Count 171 135 - 317 05/25/2020 FB60 x10(9)/L 11:02 AM CDT Leukocytes 5.5 3.4 - 9.6 05/25/2020 FB60 x10(9)/L 11:02 AM CDT Specimen Anatomical Collection Method Collection Time Receive d Time (Source) Location / / Volume Laterality Blood (Blood, 05/25/2020 10:42 05/25/2020 Venous) AM CDT 10:42 AM CDT Rusty Da Silva M.D. LAB BLOOD ADD-ON Performing Organization Address City/State/ZIP Code Phon e Number [facility]- [address] [place] [address] [facility] [address] [place] [address] System in [place] [address] (ABNORMAL) Basic Metabolic Panel (05/25/2020 10:42 AM CDT) Analysis Performed At Patho logist Time Signature Potassium, P 4.7 3.6 - 5.2 05/25/2020 [facility] mmol/L 1:16 PM CDT Sodium, P 134 (L) 135 - 145 05/25/2020 [facility] mmol/L 1:16 PM CDT Chloride, P 100 98 - 107 05/25/2020 [facility] mmol/L 1:16 PM CDT Bicarbonate, P 24 22 - 29 05/25/2020 [facility] mmol/L 1:16 PM CDT Anion Gap, P 10 7 - 15 05/25/2020 [facility] 1:16 PM CDT BUN (Blood Urea 67 (H) 8 - 24 05/25/2020 [facility] Nitrogen), P mg/dL 1:16 PM CDT Creatinine 2.12 (H) 0.74 - 05/25/2020 [facility] 1.35 mg/dL 1:16 PM CDT eGFR-Black/Afri 34 (L) >=60 05/25/2020 [facility] can [place] mL/min/BSA 1:16 PM CDT Comment: ----ADDITIONAL INFORMATION---- Estimated GFR calculated using the 2009 CKD_EPI creatinine equation. eGFR Non-Black/ 29 (L) >=60 mL/min/BSA 05/25/2020 1:16 PM CDT [facility] [place] Comment: ----ADDITIONAL INFORMATION---- Estimated GFR calculated using the 2009 CKD_EPI creatinine equation. Calcium, Total, P 9.0 8.8 - 10.2 mg/dL 05/25/2020 1:16 PM CDT [facility] Glucose, P 255 (H) 70 - 140 mg/dL 05/25/2020 1:16 PM CDT O MARCK Specimen Anatomical Collection Method Collection Time Receive d Time (Source) Location / / Volume Laterality Blood (Blood, 05/25/2020 10:42 05/25/2020 1:01 Venous) AM CDT PM CDT Rusty Da Silva M.D. LAB BLOOD ADD-ON Performing Organization Address City/State/ZIP Code Phon e Number [facility]- [address] [place] [address] [place] [address] System in [place] [address] documented in this encounter Visit Diagnoses Diagnosis Hypertension Essential Primary Failure Heart (HCC) documented in this encounter Additional Health Concerns Assessment Noted Time PHQ-9 Depression Total Score: 18 04/28/2018 11:27 AM C DT documented as of this encounter Care Teams Bowling Ball Patcher Relationship Specialty Start Date End Date Shayla Alford D.O. PCP - General Internal Medicine 05/22/[address] [place] [address] documented as of this encounter
--- OUTSIDE RECORDS SUMMARY | 2022-05-21 11:26 | XMS_ITS | Encounter Summary ---
:[address] [facility] Address [address] [place] [address] Care Team Providers Name Role Phone Shayla Alford D.OMauro Primary Care Provider [phone] Reason for Visit Reason Comments Pre-visit Testing Orders orders Encounter Details Date Type Department Care Team Description 05/17/2020 Clinical Communication Department of Alexys Pre -visit Testing Internal Medicine enShayla, Orders (or ders) in [place], [facility] [address] [place] [phone] Social History Tobacco Use Types Packs/Day [...] do you attend bahai or Never 2021 anabaptist services? Do you [...] have completed or the highest Martin, MEd, SERVICE GREETER, CAYDEN) degree you have received? Sex Assigned at Date Recorded Male 05/21/2018 2:34 PM CDT documented as of this encounter Miscellaneous Notes Telephone Encounter - Shayla Alford D.O. - 05/19/2020 10:08 AM CDT I can't order a covid test .. there is no swab order available to us in [place] in the [employer] system.The physician needing the test can call a testing center and place a verbal order Telephone Encounter - Patria Lyles - 05/18/2020 4:00 PM CDT Good afternoon, [facility] requires covid testing to be done at a [facility] facility. We will need orders for covid testing. Thank you. Telephone Encounter - Shayla Alford D.O. - 05/18/2020 2:11 PM CDT Completed, COVID tests already done on [facility] and negative Telephone Encounter - Patria Lyles - 05/17/2020 11:35 AM CDT Good morning, You are referring patient to [facility] for Asthma. There are pre requisite orders for testing that also need to be ordered. A Exhaled Nitric Oxide (oral), Pulmonary Function test, and a Rhinoscopy, and covid swab tests. Please order for [facility]. Thank you. documented in this encounter Plan of Treatment Not on filedocumented as of this encounter Visit Diagnoses Not on filedocumented in this encounter Additional Health Concerns Assessment Noted Time PHQ-9 Depression Total Score: 18 04/28/2018 11:27 AM C DT documented as of this encounter Care Teams Enterostomal Therapy Nurse Relationship Specialty Start Date End Date Shayla Alford D.O. PCP - General Internal Medicine 05/22/20 [address] [place] [phone] documented as of this encounter
--- OUTSIDE RECORDS SUMMARY | 2022-05-21 11:26 | XMS_ITS | Encounter Summary ---
:1945 Author Organization [facility] Address [address] [place] [address] Care Team Providers Name Role Phone Shayla Alford D.O. Primary Care Provider [phone] Encounter Details Date Type Department Care Team Description 05/24/2020 Episode Changes Department of [facility] Ronda Fernandez Medicine, [facility], R.NMauro in [place], [place] [address] [facility] [address] [place] [phone] Social History Tobacco Use Types Packs/Day Years [...] do you attend restorationist or Never 2021 adventist services? Do you [...] have completed or the highest Martin, Sirena, RETAIL SALES PROFESSIONAL, CAYDEN) degree you have received? Sex Assigned at Date Recorded Male 05/21/2018 2:34 PM CDT documented as of this encounter Plan of Treatment Not on filedocumented as of this encounter Visit Diagnoses Not on filedocumented in this encounter Additional Health Concerns Assessment Noted Time PHQ-9 Depression Total Score: 18 04/28/2018 11:27 AM C DT documented as of this encounter Care Teams Telecommunications Cable Jointer Relationship Specialty Start Date End Date Shayla Alford D.O. PCP - General Internal Medicine 05/22/[address] [phone] documented as of this encounter
--- OUTSIDE RECORDS SUMMARY | 2022-05-21 11:26 | XMS_ITS | Encounter Summary ---
:1945 Author Organization [facility] Address [address] [place] [address] Care Team Providers Name Role Phone Shayla Alford D.O. Primary Care Provider [phone] Encounter Details Date Type Department Care Team Description 06/06/2020 Hospital Encounter Department of Dolores, Personal History Of Laboratory Medicine Rhoda Mims. Malignant Neoplasm Of and Pathology, [address] [facility] in [place], [place] [address] [facility] [address] [place], [place] [phone] (Work) [phone] Social History Tobacco Use Types Packs/Day Years [...] do you attend taoism or Never 2021 bahai services? Do you [...] completed or the highest Martin, MEd, SALES MANAGER PREARRANGED FUNERALS, CAYDEN) degree you have received? Sex Assigned [...] by mouth tabletIndications: daily. 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 As directed per DR capsule iigkox-kmgorzhq-bqnfcub Take 1 capsule by 0 10/12/2020 (CREON) mouth as needed for 6,000-19,000-30,[address] capsule xlpprk-kztjcmpa-zezuyst Take 1 capsule by 0 10/12/2020 (fgabfk-iunqcfhy-ewgqcfn) mouth 3 (three) 6,000-19,000-30,000 Unit times a [...] Priority Date/Time Associated Diagnosis Comme nts CYTOLOGY NON-TIN DIPPER Routine 06/06/2020 1:33 PM Personal History O f Results for this (SCHEDULED) CDT Malignant Neoplasm procedure are in Of Bladder the results section. documented in this encounter Results Cytology Non-TIN DIPPER (Scheduled) (06/06/2020 1:33 PM CDT) Component Value Ref Test Analysis Performed At [facility] gist Range Method Time Signature 06/07/2020 DTL 2:47 PM CDT Report Dafne Rodriguez M.D. [phone] 06/07/2020 DTL electronically I verify that I have examined all relevant slides/ma terials 2:47 PM CDT signed by for the specimen(s) and rendered or confirmed the diagnosis. Gross Description Received 80 06/07/2020 DTL cc of yellow 2:47 PM CDT fluid. Source A. Urine, 06/07/2020 DTL voided 2:47 PM CDT Interpretation A. Urine, voided (ThinPrep): Negative for High-Grade 06/07/2020 DTL Urothelial Carcinoma. 2:47 PM CDT Specimen Anatomical Collection Method Collection Time Receive d Time (Source) Location / / Volume Laterality Varies (Urine, 06/06/2020 1:33 PM 020 5:41 Clean Catch) CDT PM CDT Narrative This result has an attachment that is no t available. Prasanna Bernal M.D. LAB SURG PATH ORDERABLES Performing Organization Address City/State/ZIP Code Phon e Number [facility] - [address] [place], [place] [address] [facility] [place] [address] [facility] [address] documented in this encounter Visit Diagnoses Diagnosis Personal History Of Malignant Neoplasm O f Bladder documented in this encounter Additional Health Concerns Assessment Noted Time PHQ-9 Depression Total Score: 18 04/28/2018 11:27 AM C DT documented as of this encounter Care Teams Commercial Director Relationship Specialty Start Date End Date Shayla Alford D.O. PCP - General Internal Medicine 05/22/[address] [phone] documented as of this encounter
--- OUTSIDE RECORDS SUMMARY | 2022-05-21 11:26 | XMS_ITS | Encounter Summary ---
:1945 Author Organization [facility] Address [address] [place] [address] Care Team Providers Name Role Phone Shayla Alford D.O. Primary Care Provider [phone] Reason for Visit Reason Comments Care Coordination Follow up Encounter Details Date Type Department Care Team Description 06/08/2020 Patient Out[facility] A, R.N. (Follow up) in [place], [facility] [address] [place], [place] [address] [address] [place], [place] [phone] [address] (Work) [phone] Social History Tobacco Use Types Packs/Day Years [...] or relatives? How often do you attend samaritan or Never 2021 hindu services? Do you belong to any clubs or No 10/09/2021 organizations such as samaritan groups, unions, fraternal or athletic groups, or [...] have completed or the highest Martin, MEd, DETAIL DRAFTER, CAYDEN) degree you have received? Sex Assigned at Date Recorded Male 05/21/2018 2:34 PM CDT documented as of this encounter Progress Notes Ronda Fernandez RShama. - 06/08/2020 10:41 AM CDT SUBJECTIVE REASON FOR VISIT Adult Medical Care Coordination Follow-Up HISTORY OF PRESENT ILLNESS Jonnathan Costa reports he had no unplanned visits for healthcare since last contact. Summary of the discussion: Patient states he is getting ready to leave, so our call will be shortened today. I'm feeling a little dizzy today but not bad. It's my head rotting I think. I'm just kidding. Yesterday I was active all day long. It was my first full day of activity since February. And then I slept like a baby with that Trazodone. Chronic disease follow up: Asthma- Not discussed. DM2- His blood sugar was 112 this morning. Ate an orange and 2 slices of grainy bread that only contains 1 gm of sugar and 13 grams of carbs for breakfast. He took 8 units of insulin this morning. Last night his sugar was 180 before bed and before his insulin. No hypoglycemia episodes. CHF- No LE edema or SOB. Weight was 201-202 pounds today. HTN- 125/65 at the clinic on 06/06/20. He does not check his BP at home as he does not think his cuff is reliable. Medication concerns: Medication is??managed by family member,??his .??But he helps as well.??He uses a twice a day pill box. Physical functioning: Patient states he is walking more and doing more for himself. Goals Addressed None SOCIAL HISTORY: Social Determinants of Health: No categories of concern noted by patient. Advanced Directives: Patient does have one, but is not on file I encouraged him to bring it in for us to scan into his record. ASSESSMENT/PLAN Red flags: Asthma: very short of breath and difficulty walking and talking due to shortness of breath , Diabetes: most fasting blood sugars >180, fatigue and increased thirst: , Heart Failure: shortness of breath with exertion, shortness of breath when lying down, weight gain or loss of more than 5 lbs in 2 days, swelling in legs, ankles or feet and rapid or irregular heartbeat and Hypertension: fatigue and difficulty breathing Jonnathan Bandar Costa was able to verbalize personal red flags for worsening of Asthma, DM2, CHF, HTN. and is able to respond appropriately to the symptoms. Health Maintenance: not addressed. Next contact type: Phone Call. Discussion items for the next contact include: Asthma, DM2, CHF, HTN, if he received the education Isent him. Offer MTM. The patient was instructed to contact the child care team lead with any questions or concerns and statedunderstanding [...] documented as of this encounter Care Teams Greenhouse Assistant Relationship Specialty Start Date End Date Shayla Alford D.O. PCP - General Internal Medicine 05/22/[address] [address] [phone] (work) documented as of this encounter
--- OUTSIDE RECORDS SUMMARY | 2022-05-21 11:26 | XMS_ITS | Encounter Summary ---
:1945 Author Organization [facility] Address [address] [place] [address] Care Team Providers Name Role Phone Shayla Alford D.O. Primary Care Provider [phone] Reason for Visit Reason Comments Care Coordination Monthly billing - 2019 Encounter Details Date Type Department Care Team Description 05/29/2020 [facility] A, R.N. (Monthly billing - in [place], [address] [facility] 2019) [place], [place] [address] [address] [place], [place] [phone] [address] (Work) [phone] Social History Tobacco Use Types Packs/Day Years [...] or relatives? How often do you attend amish or Never 2021 holiness services? Do you belong to any clubs or No 10/09/2021 organizations such as amish groups, unions, fraternal or athletic groups, or [...] have completed or the highest Martin, MEd, FINANCE ADMIN, CAYDEN) degree you have received? Sex Assigned at Date Recorded Male 05/21/2018 2:34 PM CDT documented as of this encounter Plan of Treatment Not on filedocumented as of this encounter Visit Diagnoses Diagnosis Acute On Chronic Systolic (Congestive) H eart Failure (HCC) Asthma Extrinsic Moderate (HCC) Diabetes Mellitus Type 2 Without Complic ation (HCC) Hypertension Essential Primary documented in this encounter Additional Health Concerns Infection Onset Date Last Indicated Resolved Time COVID19 Pending 06/09/2020 06/09/2020 06/09/2020 9:05 PM CDT Assessment Noted Time PHQ-9 Depression Total Score: 18 04/28/2018 11:27 AM C DT documented as of this encounter Care Teams Station Master Relationship Specialty Start Date End Date Shayla Alford D.O. PCP - General Internal Medicine 05/22/[address] [address] documented as of this encounter
--- OUTSIDE RECORDS SUMMARY | 2022-05-21 11:26 | XMS_ITS | Encounter Summary ---
:1945 Author Organization [facility] Address [address] [place] [address] Care Team Providers Name Role Phone Shayla Alford D.O. Primary Care Provider [phone] Reason for Visit Reason Comments Post Hospital Follow-up Appointment Request (Routine) - Closed Specialty Diagnoses / Procedures Referred By Contact Refer red To Contact Family Medicine Referral ID Status Reason Start Date Expiration Date Visits Requ ested Visits Authorized [id number] Closed 05/18/2020 05/18/2021 1 1 Encounter Details Date Type Department Care Team Description 05/25/2020 Office Visit Department of [facility] Sarath Da Silva O n Chronic Systolic (Congestive) Heart Failure (HCC) (Primary Dx); Medicine, [place] Ojeda M.D. Failure Heart (HCC); Clinic, in [place], [facility] [address] Hypertension Essential Primary; [place], [place] Beat Premature Ventricular; [address] [address] Asthma Extrinsic Moderate (HCC) [place], [place] [phone] [address] (Work) [phone] Social History Tobacco Use Types Packs/Day Years [...] do you attend yarsanism or Never 2021 pentecostalism services? Do you [...] have completed or the highest Martin, MEd, SHED HAND, CAYDEN) degree you have received? Sex Assigned at Date Recorded Male 05/21/2018 2:34 PM CDT documented as of this encounter Last Filed Vital Signs Vital Sign Reading Time Taken Comments Blood Pressure 113/49 05/25/2020 9:50 AM CDT Pulse 45 05/25/2020 9:50 AM CDT Temperature 36.6 ??C (97.9 ??F) 05/25/2020 9:50 AM CDT Respiratory Rate 20 05/25/2020 9:50 AM CDT Oxygen Saturation 97% 05/25/2020 9:50 AM CDT Inhaled Oxygen Concentration - - Weight 94.5 kg (208 lb 5.4 oz) 05/25/2020 9:50 AM CDT Height - - Body Mass Index 26.74 05/03/2020 7:25 PM CDT documented in this encounter Progress Notes Rusty Da Silva M.D. - 05/25/2020 9:45 AM CDT SUBJECTIVE CHIEF COMPLAINT / REASON FOR VISIT Jonnathan Costa is a 74 y.o. male who presents for evaluation of Post Hospital Follow-up. HISTORY OF PRESENT ILLNESS Patient is here with his in follow-up of 3 recent hospitalizations. Patient was initially admitted to [address] on April 28 2020. He had significant fluid overload. He was treated with furosemide diuresis and he improved. He was dismissed on an increased dose of furosemide. It was felt that he would improve in the outpatient environment. He declined further with increased weight and increased dyspnea. He was admitted to [facility] [place] on May 03. During that hospitalization he was started on amiodarone 400 mg because of significant PVC burden. Diuresis was continued and hydralazine was started. He had some evidence for acute renal injury. The metformin was discontinued as was losartan. His renal function stabilized. He was dismissed with close follow-up and ongoing diuresis. It should be noted that his weight on January 29 was 104 kg. With the admission in early April his weight was 102 kilos and declined to 101 kilos. When he was seen in evaluated in internal medicine on May 16 his weight was 103 kilos. He was subsequently admitted to [facility] and had aggressive diuresis with torsemide. He currently is on torsemide 40 mg daily. He has seen his weight stabilize at approximately 204 lb at home. This is down from a previous high of about 238 this summer. His weight today in kg is 94.5 we could put him down about 10 kilos since the January 29 time frame. His shortness of breath is better. He still is lacking exercise tolerance but is walking daily. He has been able to get out to his shed and Drive the lawn tractor safely. He does have episodes of feeling lightheaded. If he moves carefully with less of an issue. He wonders if he is getting dehydrated and if his kidney function is worsening. We discussed this at length will need to adjust his diuretic to have an appropriate level of BUN andcreatinine with stable EGFR. He has known asthma and this is well controlled on the current Regimen. Review of systems: No change in weight. No other constitutional symptoms. No headache or visual symptoms. No ENT complaints. Patient denies dysphagia. No new shortness of breath, no chest pain, no palpitations, paroxysmal nocturnal dyspnea or orthopnea. No nausea, vomiting, constipation, or diarrhea. No genitourinary, musculoskeletal, skin, or neurologic complaints except per HPI. The following portions of the patient's history were reviewed and updated as appropriate: allergies,current medications, family history, medical history, social history, surgical history and problem list. OBJECTIVE PHYSICAL EXAM BP (!) 113/49 (BP Location: Left arm, Patient Position: Sitting, Cuff Size: Regular) Pulse (!) 45 Temp 36.6 ??C (Temporal) Resp 20 Wt 94.5 kg SpO2 97% BMI 26.74 kg/m?? Alert male in no severe distress Oral mucosa moist. Neck is supple No JVP Lungs are clear with excellent air movement there are no crackles at the bases. Heart regular rhythm today I did not auscultate a VPC. Abdomen is benign No peripheral edema. Lab hemoglobin 10.3 this is up from 10.2. It was normal in September of this year. Will need to make certain that returns to normal. Leukocytes and platelets are normal. Basic metabolic panel potassium 4.7 sodium 134 BUN 67 creatinine 2.12. EGFR 29. ASSESSMENT / PLAN #1 Acute On Chronic Systolic (Congestive) Heart Failure (HCC) #2 Failure Heart (HCC) #3 Hypertension Essential Primary #4 Beat Premature Ventricular Patient is volume depleted. We reviewed this with he and his . We will try to titrate the torsemide as follows: He will take torsemide 20 mg 1 daily on Tuesdays and Friday. The other days of the week he will take 2 tablets. This should over the next 10 days increases sodium, decreased BUN and improve renal function. He will give us an update by portal or telephone call on Friday. We can then check a basic panel mid week. He will continue daily weights as before. He will also monitor his lightheadedness this too should improve. He does have follow-up with Dr. Evans in the next 10 days or so, will look forward to his recommendations for ongoing titration of the amiodarone etc. #5 Asthma Extrinsic Moderate (HCC) Continue his current regimen for his asthma. All the above was reviewed in detail with he and his . Their questions were answered. There wereno barriers to learning. Answers for HPI/ROS submitted by the patient on 05/25/2020 Fatigue: Yes No eye issues: Yes No ENT issues: Yes Chest pain, pressure or tightness: Yes Rapid or fluttering heart beats: Yes Swelling in the legs or feet: Yes Shortness of breath when lying flat: Yes Shortness of breath: Yes No GI issues: Yes No muscle/bone issues: Yes No skin issues: Yes Light-headedness: Yes Weakness in arms and/or legs: Yes Loss of balance or tendency to fall easily: Yes Excessive daytime sleepiness/tiredness: Yes Feeling nervous, anxious or on edge: Yes Bruises/bleeds easily: Yes Urgency: Yes Incontinence (urine leakage): Yes documented in this encounter Plan of Treatment Not on filedocumented as of this encounter Results (ABNORMAL) CBC without Differential (05/25/2020 10:42 AM CDT) [facility] gist Method Time Signature Hemoglobin 10.3 (L) [...] City/State/ZIP Code Phon e Number [facility]- [address] [place] [address] [facility] [address] [place] [address] System in [place] [address] (ABNORMAL) Basic Metabolic Panel (05/25/2020 10:42 AM [...] eGFR-Black/Afri 34 (L) >=60 05/25/2020 [place] mL/min/BSA 1:16 PM CDT Comment: ----ADDITIONAL INFORMATION---- Estimated GFR calculated using the 2009 CKD_EPI creatinine equation. eGFR Non-Black/ 29 (L) >=60 mL/min/BSA 05/25/2020 1:16 PM CDT [place] Comment: ----ADDITIONAL INFORMATION---- Estimated GFR [...] Phon e Number [facility]- [address] [place] [address] [place] [address] System in [place] [address] documented in this encounter Visit Diagnoses Diagnosis Acute On Chronic Systolic (Congestive) H eart Failure (HCC) - Primary Failure Heart (HCC) Hypertension Essential Primary Beat Premature Ventricular Asthma Extrinsic Moderate (HCC) documented in this encounter Additional Health Concerns Assessment Noted Time PHQ-9 Depression Total Score: 18 04/28/2018 11:27 AM C DT documented as of this encounter Care Teams Social Work Assistant Relationship Specialty Start Date End Date Shayla Alford D.O. PCP - General Internal Medicine 05/22/[address] [place] [phone] documented as of this encounter
--- OUTSIDE RECORDS SUMMARY | 2022-05-21 11:26 | XMS_ITS | Encounter Summary ---
:1945 Author Organization [facility] Address [address] [place] [address] Care Team Providers Name Role Phone Chris Billings M.D. Primary Care Provider [phone] Reason for Visit Reason Comments Post Hospital Follow-up Encounter Details Date Type Department Care Team Description 05/18/2020 Clinical Communication Department of [facility] Family MedicineChris I., Follow-up [facility] in [address] [address] [place], [place] [phone] [phone] (Work) [phone] Social History Tobacco Use Types Packs/Day Years [...] do you attend caodaism or Never 2021 worship services? Do you [...] have completed or the highest Martin, MEd, PATIENT TRANSPORT ORDERLY, CAYDEN) degree you have received? Sex Assigned at Date Recorded Male 05/21/2018 2:34 PM CDT documented as of this encounter Miscellaneous Notes Telephone Encounter - Vanessa Sol RShama. - 05/19/2020 8:56 AM CDT SUBJECTIVE REASON FOR CALL Post-Hospital follow-up phone call with patient. Admission Date: 05/16/20 Discharge Date: 05/18/20 Discharge Diagnosis: Acute on Chronic Diastolic CHF 1st Attempt: 05/19/20 at 8:56 am. Left message for patient to call back. 2nd Attempt: 05/19/20 at 4:15pm. Left message for patient to call back. Follow-up Appointment PCP Follow-up appointment scheduled: yes; scheduled on 05/25/[address] Da Silva. Specialty Follow-up scheduled with Cardiology on 06/06/20. Telephone Encounter - Becky Parker - 05/18/2020 11:44 AM CDT Post Hospital [facility] heart failure Appt 05/[address] Da Silva *Compounding Pharmacy Technician is in [facility] documented in this encounter Plan of Treatment Not on filedocumented as of this encounter Visit Diagnoses Not on filedocumented in this encounter Additional Health Concerns Assessment Noted Time PHQ-9 Depression Total Score: 18 04/28/2018 11:27 AM C DT documented as of this encounter Care Teams Chief Lifestyle Officer Relationship Specialty Start Date End Date Chris Billings M.B.B.S., M.D. PCP - General Family Medicine 01/10/20 05/21/[address] [place] [address] [place] [phone] documented as of this encounter
--- OUTSIDE RECORDS SUMMARY | 2022-05-21 11:26 | XMS_ITS | Encounter Summary ---
:1945 Author Organization [facility] Address [address] [place] [address] Care Team Providers Name Role Phone Shayla Alford D.O. Primary Care Provider [phone] Encounter Details Date Type Department Care Team Description 05/30/2020 Clinical Communication Department of [facility], [place] M.D. [facility], [facility], [facility] [address] [place], [place] [address] [facility] [address] [place], [place] [phone] (Work) [phone] Social History Tobacco Use Types Packs/Day Years [...] do you attend baptism or Never 2021 jew services? Do you [...] have completed or the highest Martin, MEd, INSERTER PROMOTIONAL ITEM, CAYDEN) degree you have received? Sex Assigned at Date Recorded Male 05/21/2018 2:34 PM CDT documented as of this encounter Miscellaneous Notes Telephone Encounter - Ronda Fernandez R.N. - 05/31/2020 2:56 PM CDT I have notified the patient of Dr. Da Silva's response during his care coordination follow up calltoday. I will message scheduling to get this appointment made for him. Telephone Encounter - Rusty Da Silva M.D. - 05/30/2020 3:14 PM CDT That is good news I would like to repeat a Basic panel this week. I have ordered. Rusty Da Silva M.D. Telephone Encounter - Yadira Matias L.P.N. - 05/30/2020 3:09 PM CDT This is some information that Jonnathan wanted you to be made aware of and he would like to see you again in a few months, and will schedule it soon Telephone Encounter - Kayli Boyce - 05/30/2020 1:36 PM CDT Reason for Communication: Pt called and stated that he doing fine and his weight has not changed he is still at 202 and he has been able to walk farther than he could before Current Can Nursing/Provider leave a detailed message?: Did the patient refuse triage through Nurse line? (for symptom based concerns): Action Needed: Just an FYI, if questions please call pt Name of Medication (if relevant): documented in [...] documented as of this encounter Care Teams Subassemblies Wirer Relationship Specialty Start Date End Date Shayla Alford D.O. PCP - General Internal Medicine 05/22/[address] [phone] documented as of this encounter
--- OUTSIDE RECORDS SUMMARY | 2022-05-21 11:26 | XMS_ITS | Encounter Summary ---
:1945 Author Organization [facility] Address [address] [place] [address] Care Team Providers Name Role Phone Chris Billings M.D. Primary Care Provider [phone] Encounter Details Date Type Department Care Team Description 05/18/2020 Hospital Encounter Department of [facility]oon Eff usion Pleural Radiology in [place], [place] [address] [place], [place] [phone] Social History Tobacco Use Types Packs/Day [...] do you attend yazidi or Never 2021 denominational services? Do you [...] have completed or the highest Martin, MEd, TRANSITIONAL NURSE, CAYDEN) degree you have received? Sex Assigned at Date Recorded Male 05/21/2018 2:34 PM CDT documented as of this encounter Medications at Time of Discharge Medication Sig Dispensed Refills Start Date End Date atorvastatin Take 80 mg by mouth 0 [...] 10 mg tablet total) by mouth daily. PEN NEEDLE, DIABETIC Yani Fine 30 0 MISC disposable needles. For use with Insulin Pens, 4 times daily SYRINGE-NEEDLE,INSULIN,0 0 .5 ML (INSULIN SYRINGE MIS) albuterol (for_ACCUNEB) Take 2.5 mg by 0 05/25/2020 2.5 mg /3 mL nebulizer nebulization every 6 solution (six) hours as needed for wheezing or shortness of breath. albuterol sulfate 90 Inhale 2 puffs every 0 08/1909/13/2020 mcg/actuation aerosol 6 (six) hours as powdr breath activated needed. amiodarone (PACERONE) Take 400 mg (2 tabs) 60 tablet 11 08/04/202005/25/2020 200 mg tablet once daily for 1 month. Starting 06/06/2020 take 200 mg (1 tab) once daily. budesonide-formoteroL Inhale 2 puffs 2 1 Inhaler 11 12/16/19 20 06/30/2020 (SYMBICORT) 160-4.5 (two) times a day. mcg/actuation Start at 1 puff twice inhalerIndications: daily x 4 weeks, then Asthma Extrinsic 2 puffs twice daily Moderate (HCC) if tolerated. furosemide (LASIX) 40 mg Take 1.5 tablets (60 45 tablet 11 0 05/16/2020 05/25/2020 tablet mg total) by mouth daily. gemfibroziL (LOPID) 600 Take 1 tablet by [...] by mouth tabletIndications: daily. 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 As directed per DR capsule blrhpa-dzlesigt-ztpnywi Take 1 capsule by 0 10/12/2020 (CREON) mouth as needed for 6,000-19,000-30,[address] capsule lisinopriL Take 1 tablet by 0 11/15/2008 [...] mouth 0 020 11/08/2020 (KLORCON/K-TAB) 10 mEq daily with breakfast. ER tablet torsemide (DEMADEX) 20 40 mg on Friday, 0 020 10/20/2020 mg tablet Friday and Friday. 20 mg on Friday, and Friday. traZODone (DESYREL) 100 Take 1 tablet (100 mg 30 tablet 1 0 05/06/2020 02/22/2021 mg tablet total) by mouth at bedtime as needed for sleep. documented as of this encounter Plan of Treatment Not on filedocumented as of this encounter Procedures Procedure Name Priority Date/Time Associated Comments Diagnosis DX CHEST AP OR PA RAD - Semiurgent 05/18/2020 10:56 Effusion Pleura l Results for this AND LATERAL 2 (Fast; most ED AM CDT procedure ar e in VIEWS patients; some the results inpatients) section. documented in this encounter Results DX Chest AP or PA and Lateral 2 Views (05/18/2020 10:56 AM CDT) Anatomical Region Laterality Modality Chest, Thoracic RST LOS, Thoracic ARZ LOS, Thoracic N/A Digital Radiography FLA LOS Specimen (Source) Anatomical Collection Method Collection Time Re ceived Time Location / / Volume Laterality 05/18/2020 10:58 AM CDT Impressions 05/18/2020 10:59 AM CDT Small right and trace left pleural effusions with associated atelectasis. Normal heart size. Atherosc lerotic vascular disease. No pneumothorax. May 05, 2020 comparison. Narrative 05/18/2020 10:59 AM CDT EXAM: DX CHEST AP OR PA AND LATERAL 2 VIEWS Procedure Note Cody Lyons M.D. - 05/18/2020Forma tting of this note might be different from the original. EXAM: DX CHEST AP OR PA AND LATERAL 2 EWS IMPRESSION: Small right and trace left pleural effus ions with associated atelectasis. Normal heart size. Atherosc lerotic vascular disease. No pneumothorax. May 05, 2020 comparison. [facility] PROCE AGUSTO documented in this encounter Visit Diagnoses Diagnosis Effusion Pleural documented in this encounter Additional Health Concerns Assessment Noted Time PHQ-9 Depression Total Score: 18 04/28/2018 11:27 AM C DT documented as of this encounter Care Teams Wood Type Finisher Relationship Specialty Start Date End Date Chris Billings M.B.B.S., M.D. PCP - General Family Medicine 01/10/20 05/21/[address] [place] [address] [place] [address] documented as of this encounter
--- OUTSIDE RECORDS SUMMARY | 2022-05-21 11:26 | XMS_ITS | Encounter Summary ---
:1945 Author Organization [facility] Address [address] [place] [address] Care Team Providers Name Role Phone Shayla Alford D.OMauro Primary Care Provider [phone] Reason for Visit Reason Comments Pulmonary Consult & tests Encounter Details Date Type Department Care Team Description 05/22/2020 Clinical Communication Department of [facility] Consult & Internal Medicine enShayla, tests in [facility] [address] [place] [phone] Social History Tobacco Use [...] do you attend pentecostal or Never 2021 zoroastrianism services? Do you [...] have completed or the highest Martin, MEd, LEARNING SUPPORT AIDE, CAYDEN) degree you have received? Sex Assigned at Date Recorded Male 05/21/2018 2:34 PM CDT documented as of this encounter Miscellaneous Notes Telephone Encounter - Coco Luque, CMauroMMauroAMauro - 05/23/2020 10:08 AM CDT Spoke to patient, he did not refuse to make an appt with pulmonary, he says [place] was [place] I Called over to [place] and they are reinstating the order and will call the patient to get him scheduled. Patient has been informed and will wait for the call. Telephone Encounter - Shayla Alford D.O. - 05/23/2020 9:02 AM CDT Could you please call the patient, and inquire why he told scheduling that he was not aware of this referral? We did discuss in detail during his appointment that he needs a pulmonary visit. To help us, determine why he is accumulating fluid in the lungs. I would like this consultation done before he sees me back in follow-up in the clinic. [place] scheduling, please do not cancel the referral. Electronically signed by: Shayla Alford D.O. 05/23/20 9:03 AM CDT Telephone Encounter - Sophie Sorenson - 05/22/2020 1:31 PM CDT Thank you for your order. Unfortunately, when speaking with the patient, they stated that they were unaware of the order for Pulmonary Consult, PFT, Nitric Oxcide. We have cancelled the request. We have encouraged the patient to contact your office to discuss the reason for the order. Once the patient is aware they may contactour Ancillary Testing Services back at [phone] and we will reinstate the order at that time. Sincerely, [facility] Anc[facility] Testing Services documented in this encounter Plan of Treatment Not on filedocumented as of this encounter Visit Diagnoses Not on filedocumented in this encounter Additional Health Concerns Infection Onset Date Last Indicated Resolved Time COVID19 Pending 06/09/2020 06/09/2020 06/09/2020 9:05 PM CDT Assessment Noted Time PHQ-9 Depression Total Score: 18 04/28/2018 11:27 AM C DT documented as of this encounter Care Teams Loom Technician Relationship Specialty Start Date End Date Shayla Alford D.O. PCP - General Internal Medicine 05/22/[address] [phone] documented as of this encounter
--- OUTSIDE RECORDS SUMMARY | 2022-05-21 11:26 | XMS_ITS | Encounter Summary ---
:1945 Author Organization [facility] Address [address] [place] [address] Care Team Providers Name Role Phone Shayla Alford D.O. Primary Care Provider [phone] Reason for Visit Reason Comments Care Coordination Encounter Details Date Type Department Care Team Description 05/31/2020 Patient Outreach Department of [facility] [place] [address] [facility] [address] [place] [phone] Social History Tobacco Use Types Packs/Day Years [...] do you attend alevism or Never 2021 mandaeism services? Do you belong to any clubs or No 10/09/2021 organizations such as alevism groups, unions, fraternal or athletic groups, or [...] have completed or the highest Martin, MEd, SOFTWARE APPLICATIONS ENGINEER, CAYDEN) degree you have received? Sex Assigned at Date Recorded Male 05/21/2018 2:34 PM CDT documented as of this encounter Progress Notes Ronda Fernandez RShama. - 05/31/2020 1:52 PM CDT Patient calls in mentioning that about an hour after taking his morning medications this morning, while he was in the grocery store he felt like his balance was off and felt very tired. He left and went home to take a 2 hour nap. He woke up feeling a little bit better, but decided to call me to discuss this. He is wondering if he took too many pills all at once this morning and is questioning if he should space some out. When discussing his symptoms a little further, Mr. Costa doesn't think it was an episode of hypoglycemia as he knows my body well and I know it isn't that. I'm well in tune with what that feels like. He reports that yesterday's blood sugar was up to 210, but this morning it was 150. His weight was down to 200 pounds today. So far today he has eaten 2 slices of toast, a handful ofunsalted peanuts and some watermelon. He is trying to lose weight through diet control and smaller portions. I congratulated him on this, but also encouraged him to eat enough to prevent light headedness or hypoglycemia. He messaged Dr. Da Silva yesterday to inform him of his weight loss and currentweight. Dr. Da Silva ordered a basic panel to be done this week and patient has not been contactedto schedule this yet. He would like to have it done tomorrow if able. I will notify scheduling to contact him.. After discussion with Zhang Yu PharmD about scheduling and timing of patients medications,these were reviewed with both Jonnathan and his . Medications were spread out more throughout the day, as he was taking 13 pills in the morning and very little the rest of the day. He was encouraged totake the Amiodarone, Imdur, and Torsemide and Plavix in the morning, then the Metoprolol, Lexapro, atorvastatin, and calcium in the evening. He will continue to take his Hydralazine at 6-2-8. Potassiumwill be taken with his lunch. Creon and respiratory medications will stay on his current schedule. Patient and his were in agreement with this plan. His will get him a 3 times a day pill box. We discussed how with his PCP changing so much frequently, he has been unsure of who to contact for his concerns. He appreciates my assistance to help him navigate his health care. I encouraged him to contact me again should any further questions arise. documented in this encounter Plan of Treatment Not on filedocumented as of this encounter Visit Diagnoses Not on filedocumented in this encounter Additional Health Concerns Assessment Noted Time PHQ-9 Depression Total Score: 18 04/28/2018 11:27 AM C DT documented as of this encounter Care Teams Assembler Surgical Garment Relationship Specialty Start Date End Date Shayla Alford D.O. PCP - General Internal Medicine 05/22/20 [address] [place] [phone] documented as of this encounter
--- OUTSIDE RECORDS SUMMARY | 2022-05-21 11:26 | XMS_ITS | Encounter Summary ---
:1945 Author Organization [facility] Address [address] [place] [address] Care Team Providers Name Role Phone Shayla Alford D.O. Primary Care Provider [phone] Encounter Details Date Type Department Care Team Description 06/02/2020 Hospital Encounter [facility] ([facility]) Laboratory Medicine Pato Ojeda in [place], [address] [place], [place] [address] [facility] [phone] [facility] [place] [phone] (Work) [phone] Social History Tobacco Use Types Packs/Day Years [...] do you attend confucianism or Never 2021 jain services? Do you [...] have completed or the highest Martin, MEd, CONSTRUCTION SCHEDULER, CAYDEN) degree you have received? Sex Assigned [...] budesonide-formoteroL Inhale 2 puffs 2 1 Inhaler 12/16/19 20 06/30/2020 (SYMBICORT) 160-4.5 (two) times [...] by mouth tabletIndications: daily. 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), Diabetes Mellitus Type 2 ([facility]), Hypertension Essential Primary grqqgp-dlzlzbiv-nqxcswr 2 capsules 3 (three) 0 10/12/2020 (CREON) times a day with 6,000-19,000-30,000 Unit meals. As directed per DR capsule vleveh-dgvkiwcn-qgyjwtg Take 1 capsule by 0 10/12/2020 (CREON) mouth as needed for 6,000-19,000-30,[address] capsule ualsxu-uwimoaug-kcpqtlq Take 1 capsule by 0 10/12/2020 (aqaevo-whzyswfx-wqdaawu) mouth 3 (three) 6,000-19,000-30,000 Unit times a [...] encounter Miscellaneous Notes Result Encounter Note - Justina Tirado, L.P.N. - 06/02/2020 4:57 PM CDT Name of person contacted: Patient Relationship to patient: Not applicable Call back number: [phone] Tie Sawyer: Not applicable Information provided: Called and spoke with patient. Informed him of his results and Dr. Da Silva's recommendations as listed below. real estate salesperson/patient received and understood education/information provided: Yes real estate salesperson/patient agreed to the Plan of Care: Yes documented in this encounter Plan of Treatment Not on filedocumented as of this encounter Procedures Procedure Name Priority Date/Time Associated Diagnosis Comme nts BASIC METABOLIC Routine 06/02/2020 11:32 AM Failure Heart (HCC ) Results for this PANEL, S/P CDT procedure are i n the results section. documented in this encounter Results (ABNORMAL) Basic Metabolic Panel (06/02/2020 11:32 AM CDT) Analysis Performed At Patho logist Time Signature Potassium, P 5.4 (H) 3.6 - 5.2 06/02/2020 [facility] mmol/L 1:23 PM CDT Sodium, P 138 135 - 145 06/02/2020 [facility] mmol/L 1:23 PM CDT Chloride, P 105 98 - 107 06/02/2020 [facility] mmol/L 1:23 PM CDT Bicarbonate, P 22 22 - 29 06/02/2020 [facility] mmol/L 1:23 PM CDT Anion Gap, P 11 7 - 15 06/02/2020 [facility] 1:23 PM CDT BUN (Blood Urea 56 (H) 8 - 24 06/02/2020 [facility] Nitrogen), P mg/dL 1:23 PM CDT Creatinine 1.98 (H) 0.74 - 06/02/2020 [facility] 1.35 mg/dL 1:23 PM CDT eGFR-Black/Afri 37 (L) >=60 06/02/2020 [facility] can Brazilian mL/min/BSA 1:23 PM CDT Comment: ----ADDITIONAL INFORMATION---- Estimated GFR calculated using the 2009 CKD_EPI creatinine equation. eGFR Non-Black/ 32 (L) >=60 mL/min/BSA 06/02/2020 1:23 PM CDT [facility] Brazilian Comment: ----ADDITIONAL INFORMATION---- Estimated GFR calculated using the 2009 CKD_EPI creatinine equation. Calcium, Total, P 9.1 8.8 - 10.2 mg/dL 06/02/2020 1:23 PM CDT [facility] Glucose, P 143 (H) 70 - 140 mg/dL 06/02/2020 1:23 PM CDT O MARCK Specimen Anatomical Collection Method Collection Time Receive d Time (Source) Location / / Volume Laterality Blood (Blood, 06/02/2020 11:32 06/02/2020 1:00 Venous) AM CDT PM CDT Rusty Da Silva M.D. LAB BLOOD ADD-ON Performing Organization Address City/State/ZIP Code Phon e Number [facility] [address] [place] [address] [facility] [place] [address] System in [place] [address] documented in this encounter Visit Diagnoses Diagnosis Failure Heart (HCC) documented in this encounter Additional Health Concerns Assessment Noted Time PHQ-9 Depression Total Score: 18 04/28/2018 11:27 AM C DT documented as of this encounter Care Teams Metal Polisher Relationship Specialty Start Date End Date Shayla Alford D.O. PCP - General Internal Medicine 05/22/[address] [phone] documented as of this encounter
--- OUTSIDE RECORDS SUMMARY | 2022-05-21 11:26 | XMS_ITS | Encounter Summary ---
:1945 Author Organization [facility] Address [address] [place] [address] Care Team Providers Name Role Phone Shayla Alford D.O. Primary Care Provider [phone] Reason for Referral Outpatient (Routine) - Closed Specialty Diagnoses / Procedures Referred By Contact Refer red To Contact Diagnoses Chronic Systolic (Congestive) Heart Failure (HCC) Manuel Evans M.D. [facility] Procedures Echo Transthoracic (TTE) [address] [place] [address] Referral ID Status Reason Start Date Expiration Date Visits Requ ested Visits Authorized [id number] Closed 06/06/2020 06/06/2021 1 1 Outpatient (Routine) - Closed Specialty Diagnoses / Procedures Referred By Contact Refer red To Contact Diagnoses Chronic Systolic (Congestive) Heart Failure (HCC) Manuel Evans M.D. [facility] Procedures ECG 12 Lead [address] [place] [address] Referral ID Status Reason Start Date Expiration Date Visits Requ ested Visits Authorized [id number] Closed 06/06/2020 06/06/2021 1 1 Outpatient (Routine) - Closed Specialty Diagnoses / Procedures Referred By Contact Refer red To Contact Cardiovascular Disease Diagnoses Chronic Systolic (Congestive) Heart Failure (HCC) Manuel Evans [place] M.D. [address] [place] [address] Referral ID Status Reason Start Date Expiration Date Visits Requ ested Visits Authorized [id number] Closed 06/06/2020 06/06/2021 1 1 Reason for Visit Outpatient (Routine) - Closed Specialty Diagnoses / Referred By Contact Referred To Contact Procedures Cardiovascular Diseases / Diagnoses Chronic Systolic (Congestive) Heart Failure (HCC) Rocío [facility] Felicita Cardiovascular Disease Tulio Mcguire [address] [place] [phone] Referral ID Status Reason Start Date Expiration Date Visits Requ ested Visits Authorized [id number] Closed 05/16/2020 05/16/2021 1 1 Encounter Details Date Type Department Care Team Description 06/06/2020 Comprehensive Visit Department of Werner Evans 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 Hyperlipidemia; [place], [place] [address] [place] Premature Ventricular; [address] [place], [place]pert[place] [phone] Social History Tobacco Use Types Packs/Day Years [...] do you attend [facility] or Never 2021 holiness services? Do you [...] completed or the highest Martin, MEd, MAIL SORTER, CAYDEN) degree you have received? Sex Assigned at Date Recorded Male 05/21/2018 2:34 PM CDT documented as of this encounter Last Filed Vital Signs Vital Sign Reading Time Taken Comments Blood Pressure 122/65 06/06/2020 3:03 PM CDT Pulse 45 06/06/2020 3:03 PM CDT Temperature - - Respiratory Rate - - Oxygen Saturation - - Inhaled Oxygen Concentration - - Weight 95.9 kg (211 lb 6.7 oz) 06/06/2020 3:03 PM CDT Height 186 cm (6' 1.23) 06/06/2020 3:03 PM CDT Body Mass Index 27.72 06/06/2020 3:03 PM CDT documented in this encounter Consult Notes Mark Lilly M.B.BMauroS. - 06/06/2020 3:00 PM CDT HEART FAILURE CLINIC CONSULT REFERRAL Shayla Alford D.O. [address] [place] [phone] CHIEF COMPLAINT Congestive heart failure Supervised by: Dr. Manuel Evans HISTORY OF PRESENT ILLNESS Mr. Jonnathan Costa is a 74 y.o. male who presents today for establishment of care in the Heart Failure clinic. 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 The patient was seen by Cardiology within [facility] in November 2019 and had a positivestress echo that demonstrated an EF of 45%. He had a CTA in December 2019 that demonstrated mild coronary artery disease. The FFRct returned showing mild stenosis in the proximal 2nd diagonal and no otherflow-limiting lesions. This was treated medically. A repeat TTE from mid March shows a mildly enlarged LV, LVEF 42%, and worsened regional wall motion abnormalities around the posterior-septal aspects. He was admitted locally on 04/28 for an acute exacerbation of heart failure and received IV diuretics, he was discharged on oral furosemide. A Holter monitor was ordered as well and returned showing PVCburden around 33%. He continued to gain weight and have shortness of breath after dismissal, he presented to [facility] ER on 05/03 and was admitted to the Heart Rhythm service. He again received IV diuretics. He was noted to have acute kidney injury (creatinine stabilized at 2.2, prior baseline 1.2-1.4 in December 2019), losartan and metformin were discontinued. For his increased PVC burden, he was loaded with amiodarone and continued on a maintenance dose of 200 mg daily. He was initiated on hydralazine for afterload reduction. He was continued on metoprolol, atorvastatin, Imdur and Plavix. He was dischargedon 05/06/2020. At a follow-up visit with his primary care provider in [place] on 05/16, he was found to have evidence of recurrent volume overload and was readmitted for management of heart failure exacerbation. He again received IV diuretics and this time was switched from furosemide 40 mg daily to torsemide 20 mgdaily. He lost over 25 lb during this hospital stay, discharged at a dry weight of 209 lb. Since this dismissal, he has done very well. His weight at home is in the range of 200 -202 lb. He denies any pedal edema, dyspnea. He continues to endorse symptoms of chronic vertigo which have been present since his stroke in 2017. He denies symptoms suggestive of orthostatic hypotension, angina or anginal equ ivalents, he denies syncope. He is restricting himself to less than 1.5 L of fluid per day and watching his sodium intake. He continues to weigh himself daily. Does endorse some fatigue but is gradually improving. Current medications include amiodarone 200 mg daily, atorvastatin 80 mg daily, Plavix 75 mg daily, hydralazine 25 mg 3 times a day, Imdur 60 mg daily, metoprolol succinate 50 mg daily, torsemide 20 mg daily. He was previously on potassium supplements, this was discontinued after a recent lab draw demon strated hyperkalemia with potassium 5.4. OUTPATIENT MEDICATIONS Current Outpatient Medications: ??? albuterol inhaler, INHALE [...] Hold if not eating. (Patient taking differently:Inject 14 Units under the skin 3 (three) times a day with meals. Hold if not eating. ), Disp: , Rfl: ??? insulin glargine (Lantus U-100 Insulin) 100 unit/mL injection, Inject 0.14 mL (14 Units total) under the skin at bedtime. (Patient taking differently: Inject 26 Units under the skin at bedtime. ), Disp: 10 mL, Rfl: 12 ??? isosorbide mononitrate (IMDUR) 60 mg 24 hr tablet, Take 1 tablet (60 mg total) by mouth daily., Disp: , Rfl: ??? ubtjuv-lintufgt-skqdkfw (CREON) 6,000-19,000-30,[address] capsule, 2 capsules 3 (three) times a day with meals. As directed , Disp: , Rfl: ??? tqtzwm-aygojhyl-tohgmrv (CREON) 6,000-19,000-30,[address] capsule, Take 1 capsule by mouthas needed for snacks., Disp: , Rfl: ??? metoprolol succinate (TOPROL-XL) [...] Rfl: ??? torsemide (DEMADEX) 20 mg tablet, , Disp: , Rfl: ??? traZODone (DESYREL) 100 mg tablet, Take 1 tablet (100 mg total) by mouth at bedtime as needed for sleep., Disp: 30 tablet, Rfl: 1 ??? albuterol sulfate 90 mcg/actuation aerosol powdr breath activated, Inhale 2 puffs every 6 (six) hours as needed. , Disp: , Rfl: ??? ljkmlh-zthwkupy-xhyhntm (skaxzd-jdieezqq-kqsxkwa) 6,000-19,000-30,[address] capsule, Take 1 capsule by mouth 3 (three) times a day with meals. Take 2-3 capsules by mouth 3 times daily with meals, Disp: , Rfl: ??? potassium chloride (KLORCON/K-TAB) 10 mEq ER tablet, , Disp: , Rfl: ALLERGIES Allergies Allergen Reactions ??? Doxycycline Anaphylaxis and Other (see comments) Bactrim ??? Penicillin Hives and Rash Cerner Listed no Reactions ??? Sulfa (Sulfonamide Antibiotics) Other (see comments) and Anaphylaxis Cerner Listed no Reactions ??? Amlodipine Hypotension, Nausea Only and Other (see comments) ??? Victoza 2-Eyal [Liraglutide] GI intolerance ??? Gadavist [Gadobutrol] GI intolerance Patient vomited after administration REVIEW OF SYSTEMS All systems reviewed and negative except as per HPI. PAST MEDICAL HISTORY Past Medical History: Diagnosis Date ??? Apnea [...] head on 09/17/2017 ??? Transient Ischemic Attack PAST SURGICAL HISTORY Past Surgical History: Procedure Laterality Date ??? [...] 08/28/[address] Prasanna Bernal at [facility]. ??? TONSILLECTOMY ??? VASECTOMY SOCIAL HISTORY Social History Tobacco Use ??? Smoking status: Former Smoker Packs/day: 2.00 Years: 0.00 Pack years: 0.00 Types: Cigarettes, Pipe Start date: 07/13/1957 Last attempt to quit: 1980 Years since quittin.7 ??? Smokeless tobacco: Never Used Substance Use Topics ??? Alcohol use: No Frequency: Never Drinks per session: 1 or 2 Binge frequency: Never Social History Social History Narrative ??? Not on file FAMILY HISTORY Family History Problem Relation Age of Onset ??? Hypertension Mother ??? Heart attack Father age 76 ??? Depression Father ??? Asthma Sister ??? Asthma Brother ??? Depression Brother ??? Asthma Son VITAL SIGNS Vitals: 06/06/20 1503 BP: 122/65 BP Location: Left arm Patient Position: Sitting Cuff Size: Regular Pulse: (!) 45 Weight: 95.9 kg Height: 186 cm Body mass index is 27.72 kg/m??. PHYSICAL EXAMINATION General: Alert and oriented, no acute distress. Vitals: Reviewed and stable. HEENT: No pallor or icterus. PERRLA, EOMI. Oral cavity moist without visible lesions. Vessels: No JV distension. Normal carotid upstroke. Cardiovascular: Apical impulse normal. Rate and rhythm regular. S1 and S2 normal, no murmurs or rub appreciated. Respiratory: Normal effort of breathing on room air, mild bibasilar crackles end inspiratory. Abdomen: Soft, nontender, nondistended. No hepatomegaly. Neurological: Alert and oriented, appropriate mood and affect. Skin: Examined and normal. Extremities: Warm, well perfused without cyanosis or edema. LABS No results found for this or any previous visit (from the past 24 hour(s)). No results found for this or any previous visit (from the past 72 hour(s)). ASSESSMENT / PLAN Mr. Jonnathan Costa is a 74 y.o. male who presents today for establishment of care in the Heart Failure clinic. 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 #1 Chronic Systolic (Congestive) and Diastolic Heart Failure (HCC) #2 Diabetes Mellitus Type 2 (HCC), insulin-dependent, poorly controlled #3 Hyperlipidemia, on Atorvastatin #4 Beat Premature Ventricular, on Amiodarone therapy #5 Hypertension Essential Primary #6 Pancreatitis Chronic Recurrent (HCC) #7 Stroke/TIA (HCC) x2 2017, on Plavix therapy #8 CKD stage 3 #9 Chronic anemia #10 Obstructive sleep apnea #11 History of nicotine dependence #12 Mild-moderate coronary artery disease per CTA December 2019 Mr. Costa has evidence of congestive heart failure with mild systolic dysfunction, last estimated in February 2020 at 42%. He did have significant symptoms of volume overload requiring 3 hospitalizations within a span of 2 weeks, suggestive of more of a diastolic dysfunction pattern. He had mild coronaryartery disease on CTA. He has multiple risk factors as noted above, predominantly type 2 diabetes mellitus that is uncontrolled. From a heart failure standpoint, he appears to have stabilized on his current regimen with udayyaaxy38 mg daily. He appears euvolemic on exam today. His heart rate is 45 per minute, blood pressure 122/65, I do not think there is much room to increase his beta-chasidy therapy at this time and we will continue metoprolol succinate 50 mg daily. Creatinine has improved marginally to 1.9 from 2.1. If this continues to improve, we could consider reintroduction of losartan in the future, possibly switching out hydralazine or Imdur if required, depending on his blood pressure. We emphasized the importance of adequate control of his diabetes. He is following closely with endocrine. He would also be a good candidate for SGLT2 inhibitors in the future. We also discussed daily weight monitoring, salt and fluid restriction, daily exercise. We will hold off on any medication changes at this time as he appears stable. The patient will be set up in the Heart failure Clinic with an DOT. Follow up with repeat labs, ECG and TTE in 3 months. Patient was in agreement with the plan and all questions were answered. Case discussed with Dr. Evans. Sandra Tran. Cardiovascular Diseases Fellow PGY-5 06/06/2020 Manuel Evans M.D. - 06/06/2020 3:00 PM CDT SUBJECTIVE ?? I have seen and examined Mr. Costa I reviewed Dr. Lilly detailed documentation of today I concur with the findings as recorded. This delightful 74-year-old has noted history of diabetes with poor glycemic control, chronic anemia, chronic pancreatitis, AGNIESZKA and CAD. Well documented mild LV d ysfunction with recent heart failure symptoms. ?? OBJECTIVE EXAM: ?? General: He looks well in no acute distress Heart: Normal JVP, regular rhythm without appreciable murmur or gallop, quiet precordium Lungs: Clear Abdomen: Soft slightly protuberant without visceromegaly or ascites Extremities: Warm well-perfused no edema or cyanosis ASSESSMENT / PLAN ?? I agree with the plan of care and recommendations as well detailed in Dr. Vinnakota documentation oftoday. The patient's symptoms are likely multifactorial. He does have significant comorbidities. Medical therapy is limited by his renal dysfunction. Nevertheless I think an attempt at introducing ARB therapy and SGLT2 inhibitor should be considered in the near future. We will plan to see the patient in follow-up in Heart failure Clinic and adjust therapy accordingly. He is reasonably well compensated at this time. We will discuss recommendation with the diabetic team. documented in this encounter Plan of Treatment Scheduled Referrals Name Type Priority Associated Order Schedule Diagnoses Cardiovascular Disease Outpatient Referral Routine Chronic Sys tolic Expected: office visit (clinic) (Congestive) Heart 09/05/2020 Failure (HCC) (Approximate), Expires: 06/06/2023 documented as of this encounter Results ECG 12 Lead (11/17/2020 12:56 PM PROGRAM ASSISTANT) P athologist Signature Ventricular Rate 53 BPM MUSE ECG/Min UT Interval 222 ms MUSE QRSD Interval 112 ms MUSE QT Interval 496 ms MUSE QTC Interval 466 ms MUSE P [place] -2 degrees MUSE R [place] -46 degrees MUSE T Wave [place] -21 degrees MUSE Specimen Anatomical Collection Method Collection Time Receive d Time (Source) Location / / Volume Laterality 11/17/2020 12:56 11/17/2020 1:09 PM PROGRAM ASSISTANT PM PROGRAM ASSISTANT Impressions MUSE - 11/17/2020 1:09 PM PROGRAM ASSISTANT Sinus bradycardia with 1st degree A-V block Low anterior forces Left axis deviation Non-specific intra-ventricular conductio n delay Nonspecific T wave abnormality When compared with ECG of 06-MAY-2020 13 :05, UT interval has increased Reviewed by SEAN Boo Narrative This result has an attachment that is no t available. Procedure Note Kayla Cervantes M.D., Ph.D. - 11/17/2020Fo rmatting of this note might be different from the original. IMPRESSION: Sinus bradycardia with 1st degree A-V bl ock Low anterior forces Left axis deviation Non-specific intra-ventricular conductio n delay Nonspecific T wave abnormality When compared with ECG of 06-MAY-2020 13 :05, UT interval has increased Reviewed by SEAN Boo Manuel Evans M.D. ECG ORDERABLES Performing Organization Address City/State/ZIP Code Phon e Number [facility]LLERMO JHAVERI (TTE) 2D ECHO DOPPLER COLOR (11/17/2020 11:23 AM PROGRAM ASSISTANT) [facility] Method Time Signature Ejection Fraction 50 MC [...] / / Volume Laterality 11/17/2020 9:48 AM PROGRAM ASSISTANT Impressions 11/17/2020 2:48 PM PROGRAM ASSISTANT Intravenous Lumason ultrasound enhancement agent(s) administered to [...] effusion. For the complete report, see the [employer] Documents. Narrative 11/17/2020 2:48 PM PROGRAM ASSISTANT For the complete report, see the [employer] Documents. Final Impressions 1. Mild-moderately enlarged left [...] report, see the [employer] Documents. Manuel Evans M.D. CV ECHO PROCEDURES DX Chest AP or PA and Lateral 2 Views (11/17/2020 9:31 AM PROGRAM ASSISTANT) Anatomical Region Laterality Modality Chest, Thoracic RST LOS, Thoracic ARZ LOS, Thoracic N/A Digital Radiography FLA LOS Specimen (Source) Anatomical Collection Method Collection Time Re ceived Time Location / / Volume Laterality 11/17/2020 9:50 AM PROGRAM ASSISTANT Impressions 11/17/2020 9:51 AM PROGRAM ASSISTANT In the interval from the prior study of 05/18/2020, a small right pleural effusion has decreased in size. Trace left pleural effusion has likely resolved. No definite additional changes . Calcified aorta. Borderline size of cardiac silhouette with slight pulmonary venous hypertension. Mitral annular calcification. Degenerative changes thor acic spine. Narrative 11/17/2020 9:51 AM PROGRAM ASSISTANT EXAM: ??DX CHEST AP OR PA AND [...] changes thor acic spine. Manuel Evans M.D. IMG DIAGNOSTIC IMAGING PROCE DURES (ABNORMAL) NT-Pro B-Type Natriuretic Peptide (BNP) (11/17/2020 9:03 AM PROGRAM ASSISTANT) P athologist Signature NT-Pro BNP 2558 (H) <=119 pg/mL 11/17/2020 DTL 10:08 AM PROGRAM ASSISTANT Comment: NT-proBNP values less than 300 pg/mL [...] (Blood, 11/17/2020 9:03 AM 11/17/19 9:26 Venous) PROGRAM ASSISTANT AM PROGRAM ASSISTANT Manuel Evans M.D. LAB BLOOD ADD-ON Performing Organization Address City/[facility]/ZIP Code Phon e Number [facility] - [address] [place] [phone] [address] [facility] Potassium (11/17/2020 9:03 AM PROGRAM ASSISTANT) athologist Signature Potassium, S 4.3 3.6 - 5.2 11/17/2020 DTL mmol/L 10:08 AM PROGRAM ASSISTANT Specimen Anatomical Collection Method Collection Time Receive d Time (Source) Location / / Volume Laterality Blood (Blood, 11/17/2020 9:03 AM 11/17/19 9:26 Venous) PROGRAM ASSISTANT AM PROGRAM ASSISTANT Manuel Evans M.D. LAB BLOOD ADD-ON Performing Organization Address City/[facility]/ZIP Code Phon e Number [facility] - [address] [place] [id number] [place] [address] [address] [facility] Bicarbonate (11/17/2020 9:03 AM PROGRAM ASSISTANT) athologist Signature Bicarbonate, S 25 22 - 29 11/17/2020 DTL mmol/L 10:08 AM PROGRAM ASSISTANT Specimen Anatomical Collection Method Collection Time Receive d Time (Source) Location / / Volume Laterality Blood (Blood, 11/17/2020 9:03 AM 11/17/19 9:26 Venous) PROGRAM ASSISTANT AM PROGRAM ASSISTANT Manuel Evans M.D. LAB BLOOD ADD-ON Performing Organization Address City/State/ZIP [facility] [place] e Number [facility] - [address] (ABNORMAL) S-TSH (Thyroid-Stimulating Hormone - Sensitive) (11/17/2020 9:03 AM PROGRAM ASSISTANT) P athologist Signature TSH, Sensitive 19.4 (H) 0.3 - 4.2 11/17/2020 DTL mIU/L 10:07 AM PROGRAM ASSISTANT Specimen Anatomical Collection Method Collection Time Receive d Time (Source) Location / / Volume Laterality Blood (Blood, 11/17/2020 9:03 AM 11/17/19 9:26 Venous) PROGRAM ASSISTANT AM PROGRAM ASSISTANT Manuel Evans M.D. LAB BLOOD ADD-ON Performing Organization Address City/State/ZIP Code Phon e Number [facility] - [address] [place], [place] [address] [facility] [place] [place] [address] [facility] [address] (ABNORMAL) CBC with Differential, Blood (11/17/2020 9:03 AM PROGRAM ASSISTANT) Patholo gist Method Time Signature Hemoglobin 10.2 (L) 13.2 - 11/17/2020 DTL 16.6 g/dL 9:34 AM PROGRAM ASSISTANT Hematocrit 30.8 (L) 38.3 - 11/17/2020 DTL 48.6 % 9:34 AM PROGRAM ASSISTANT Erythrocytes 3.33 (L) 4.35 - 11/17/2020 DTL 5.65 9:34 AM PROGRAM ASSISTANT x10(12)/L MCV 92.5 78.2 - 11/17/2020 DTL 97.9 fL 9:34 AM PROGRAM ASSISTANT RBC Distrib Width 12.6 11.8 - 11/17/2020 DTL 14.5 % 9:34 AM PROGRAM ASSISTANT Platelet Count 167 135 - 317 11/17/2020 DTL x10(9)/L 9:34 AM PROGRAM ASSISTANT Leukocytes 6.6 3.4 - 9.6 11/17/2020 DTL x10(9)/L 9:34 AM PROGRAM ASSISTANT Neutrophils 4.75 1.56 - 11/17/2020 DTL 6.45 9:34 AM PROGRAM ASSISTANT x10(9)/L Lymphocytes 0.96 0.95 - 11/17/2020 DTL 3.07 9:34 AM PROGRAM ASSISTANT x10(9)/L Monocytes 0.44 0.26 - 11/17/2020 DTL 0.81 9:34 AM PROGRAM ASSISTANT x10(9)/L Eosinophils 0.35 0.03 - 11/17/2020 DTL 0.48 9:34 AM PROGRAM ASSISTANT x10(9)/L Basophils 0.06 0.01 - 11/17/2020 DTL 0.08 9:34 AM PROGRAM ASSISTANT x10(9)/L Specimen Anatomical Collection Method Collection Time Receive d Time (Source) Location / / Volume Laterality Blood (Blood, 11/17/2020 9:03 AM 11/17/19 9:26 Venous) PROGRAM ASSISTANT AM PROGRAM ASSISTANT Manuel Evans M.D. LAB BLOOD ADD-ON Performing Organization Address City/State/ZIP Code Phon e Number [facility] - [address] [place], [place] [address] [facility] [place] [address] [facility] [address] (ABNORMAL) Lipid Panel (11/17/2020 9:03 AM PROGRAM ASSISTANT) athologist Signature Cholesterol, 118 mg/dL 11/17/2020 DTL Total 10:07 AM PROGRAM ASSISTANT Comment: ----REFERENCE VALUE---- Desirable: < 200 Borderline high: 200 - 239 High: > or = 240 Triglycerides 90 mg/dL 11/17/2020 10:07 AM PROGRAM ASSISTANT DT L Comment: ----REFERENCE VALUE---- Normal: <150 Borderline high: 150-199 High: 200-499 Very high: > or =500 Cholesterol, HDL, S 34 (L) >=40 mg/dL 11/17/2020 10:07 AM PROGRAM ASSISTANT DTL Calculated LDL 66 mg/dL 11/17/2020 10:07 AM PROGRAM ASSISTANT D TL Comment: ----REFERENCE VALUE---- Desirable: <100 Above Desirable: 100-129 Borderline high: 130-159 High: 160-189 Very high: > or =190 Cholesterol, Non-HDL, Calculated 84 mg/dL 021 10:07 AM PROGRAM ASSISTANT DTL Comment: ----REFERENCE VALUE---- Desirable: <130 Above Desirable: 130-159 Borderline high: 160-189 High: 190-219 Very high: > or =220 Specimen Anatomical Collection Method Collection Time Receive d Time (Source) Location / / Volume Laterality Blood (Blood, 11/17/2020 9:03 AM 11/17/19 9:26 Venous) PROGRAM ASSISTANT AM PROGRAM ASSISTANT Manuel L Clavell M.D. LAB BLOOD ADD-ON Performing Organization Address City/[facility] Code Phon e Number [facility] - [address] [place], [place] [address] [facility] [place], [place] [id number] [place] [address] (ABNORMAL) BUN (Blood Urea Nitrogen) (11/17/2020 9:03 AM PROGRAM ASSISTANT) P athologist Signature BUN (Blood Urea 57 (H) 8 - 24 11/17/2020 DTL Nitrogen), S mg/dL 10:08 AM PROGRAM ASSISTANT Specimen Anatomical Collection Method Collection Time Receive d Time (Source) Location / / Volume Laterality Blood (Blood, 11/17/2020 9:03 AM 11/17/19 9:26 Venous) PROGRAM ASSISTANT AM PROGRAM ASSISTANT Manuel Evans M.D. LAB BLOOD ADD-ON Performing Organization Address City/[facility]/ZIP Code Phon e Number [facility] - [address] [place], [place] [address] [place] [place] [address] [place] [address] [address] AST (Aspartate Aminotransferase) (11/17/2020 9:03 AM PROGRAM ASSISTANT) Patholo gist Method Time Signature Aspartate 31 8 - 48 11/17/2020 DTL Aminotransferase U/L 10:08 AM PROGRAM ASSISTANT (AST), S Specimen Anatomical Collection Method Collection Time Receive d Time (Source) Location / / Volume Laterality Blood (Blood, 11/17/2020 9:03 AM 11/17/19 9:26 Venous) PROGRAM ASSISTANT AM PROGRAM ASSISTANT Manuel Evans M.D. LAB BLOOD ADD-ON Performing Organization Address City/[facility] Code Phon e Number [facility] - [address] [place], [place] [address] [facility] [place], [place] [id number] [place] [address] (ABNORMAL) Creatinine with Estimated GFR (11/17/2020 9:03 AM PROGRAM ASSISTANT) Analysis Performed At Patho logist Time Signature Creatinine 1.86 (H) 0.74 - 11/17/2020 DTL 1.35 mg/dL 10:07 AM PROGRAM ASSISTANT eGFR-Non 34 (L) >=60 11/17/2020 DTL Black/ mL/min/BSA 10:07 AM PROGRAM ASSISTANT Malian Comment: ----ADDITIONAL INFORMATION---- Estimated GFR calculated using the 2009 CKD_EPI creatinine equation. eGFR-Black/ 39 (L) >=60 mL/min/BSA 2020 10:07 AM PROGRAM ASSISTANT DTL Comment: ----ADDITIONAL INFORMATION---- Estimated GFR calculated using the 2009 CKD_EPI creatinine equation. Specimen Anatomical Collection Method Collection Time Receive d Time (Source) Location / / Volume Laterality Blood (Blood, 11/17/2020 9:03 AM 11/17/19 9:26 Venous) PROGRAM ASSISTANT AM PROGRAM ASSISTANT Manuel Evans M.D. LAB BLOOD ADD-ON Performing Organization Address [facility] Phon e Number [facility] - [address] [place], [place] [address] [place] [address] (ABNORMAL) Glucose, Fasting (11/17/2020 9:03 AM PROGRAM ASSISTANT) P athologist Signature Glucose, P 219 (H) 70 - 100 11/17/2020 DTL mg/dL 9:56 AM PROGRAM ASSISTANT Last Intake 1 hr 11/17/2020 DTL 9:26 AM PROGRAM ASSISTANT Specimen Anatomical Collection Method Collection Time Receive d Time (Source) Location / / Volume Laterality Blood (Blood, 11/17/2020 9:03 AM 11/17/19 9:26 Venous) PROGRAM ASSISTANT AM PROGRAM ASSISTANT Manuel Evans M.D. LAB BLOOD NON ADD-ON Performing Organization Address City/[facility] Code Phon e Number [facility] - [address] [place], [place] [address] [facility] [place] [address] Sodium (11/17/2020 9:03 AM PROGRAM ASSISTANT) P athologist Signature Sodium, S 140 135 - 145 11/17/2020 DTL mmol/L 10:08 AM PROGRAM ASSISTANT Specimen Anatomical Collection Method Collection Time Receive d Time (Source) Location / / Volume Laterality Blood (Blood, 11/17/2020 9:03 AM 11/17/19 9:26 Venous) PROGRAM ASSISTANT AM PROGRAM ASSISTANT Manuel Evans M.D. LAB BLOOD ADD-ON Performing Organization Address City/State/ZIP Code Phon e Number [facility] - [address] [place], [place] [address] [facility] [place] [address] [facility] [address] documented in this encounter Visit Diagnoses Diagnosis Diabetes Mellitus Type 2 Without Complic ation (HCC) - Primary Chronic Systolic (Congestive) Heart Fail ure (HCC) Hyperlipidemia Beat Premature Ventricular Hypertension Essential Primary Chronic Systolic (Congestive) Heart Fail ure (HCC) Chronic Systolic (Congestive) Heart Fail ure (HCC) documented in this encounter Additional Health Concerns Assessment Noted Time PHQ-9 Depression Total Score: 18 04/28/2018 11:27 AM C DT documented as of this encounter Care Teams High School Sports Coach Relationship Specialty Start Date End Date Shayla Alford D.O. PCP - General Internal Medicine 05/22/[address] [phone] documented as of this encounter
--- OUTSIDE RECORDS SUMMARY | 2022-05-21 11:26 | XMS_ITS | Encounter Summary ---
:1945 Author Organization [facility] Address [address] [place] [address] Care Team Providers Name Role Phone Shayla Alford D.O. Primary Care Provider [phone] Reason for Visit Reason Comments [facility] Nurse Line Encounter Details Date Type Department Care Team Description 05/23/2020 Clinical Division of Ailyn Sims se Line Communication Pulmonary Medicine Pato Duque in [place], [address] [place] [address] [address] [facility] [address] [place], [place] [phone] [phone] (Work) [phone] Social History Tobacco Use Types Packs/Day Years [...] do you attend voodoo or Never 2021 adventist services? Do you [...] level of school Master's degree (e.g., M Jauna, MS, 03/23/2019 you have completed or the highest Martin, MEd, DEAN OF STUDENT SERVICES, CAYDEN) degree you have received? Sex Assigned at Date Recorded Male 05/21/2018 2:34 PM CDT documented as of this encounter Miscellaneous Notes Telephone Encounter - Zoë Yi Neto - 05/23/2020 10:28 AM CDT ([facility] and [facility] locations only: If the patient is not having symptoms and is requesting COVID-19 Nasal Swab testing only, use the process listed in the COVID-19 Patient Requesting COVID PCR Test OTG COVID-19 [place] Patient Requesting COVID PCR Test). 1. Do you have a pending COVID test because you had symptoms or exposure to someone with COVID or you have tested positive for COVID in the last 30 days? no 2. In the past 14 days, do you, anyone in the household, or anyone you have had prolonged exposure have any of the following? a. Fever greater than or equal to 37.8 C (100.0 F)? no b. New symptoms (Specifically: headache, cough, shortness of breath, respiratory distress, sore throat, diarrhea, nausea, vomiting, chills and repeated shaking with chills, myalgia's (muscle aches), loss of smell, or change or loss of taste sensation)? no c. Had close contact with a patient with known or possible COVID-19 in the last 14 days? no Route reply to: david de santiago appt office/vl Scheduling Contact Number: [phone] documented in this encounter Plan of Treatment Not on filedocumented as of this encounter Visit Diagnoses Not on filedocumented in this encounter Additional Health Concerns Assessment Noted Time PHQ-9 Depression Total Score: 18 04/28/2018 11:27 AM C DT documented as of this encounter Care Teams Domestic Helper Relationship Specialty Start Date End Date Shayla Alford D.O. PCP - General Internal Medicine 05/22/[address] [address] documented as of this encounter
--- OUTSIDE RECORDS SUMMARY | 2022-05-21 11:26 | XMS_ITS | Encounter Summary ---
:1945 Author Organization [facility] Address [address] [place] [address] Care Team Providers Name Role Phone Shayla Alford D.O. Primary Care Provider [phone] Encounter Details Date Type Department Care Team Description 06/09/2020 Hospital Encounter Department of [place] Screen ing Examination Laboratory Medicine n, Gianna Mcguire For Viral Disease in [place] [id number] [address] [place] [phone] Social History Tobacco Use [...] you attend roman catholic or Never 2021 taoism services? Do you [...] have completed or the highest Martin, MEd, CHRONIC SPECIALIST, CAYDEN) degree you have received? Sex [...] by mouth tabletIndications: daily. 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), Diabetes Mellitus Type [address] ([facility]), Hypertension Essential Primary gfdydi-dnpydlex-rnmkima 2 capsules 3 (three) 0 10/12/2020 (CREON) times a day with 6,000-19,000-30,000 Unit meals. As directed per DR capsule lzizeh-apzrwgng-npjhwlc Take 1 capsule by 0 10/12/2020 (CREON) mouth as needed for 6,000-19,000-30,[address] capsule kuoewd-pkhvrnis-lkozmpa Take 1 capsule by 0 10/12/2020 (aafwgs-migfodmy-scfdnah) mouth 3 (three) 6,000-19,000-30,000 Unit times a [...] encounter Miscellaneous Notes Result Encounter Note - Brady Clark M.D. - 06/12/2020 11:08 AM CDT Your COVID test was negative. documented in this encounter Plan of Treatment Not on filedocumented as of this encounter Procedures Procedure Name Priority Date/Time Associated Diagnosis Comme nts SARS CORONAVIRUS-2 Routine 06/09/2020 12:34 PM Screening Re sults for this RNA, V CDT Examination For procedure ar e in Viral Disease the results section. documented in this encounter Results SARS Coronavirus-2 RNA, V Asymptomatic (06/09/2020 12:34 PM CDT) [facility] Method Time Signature SARS-CoV-2 Swab, 06/09/2020 MKTO Specimen Nasopharynx 9:04 PM CDT Source SARS CoV-2 Undetected Undetected 06/09/2020 MKTO RNA, TMA 9:04 PM CDT Comment: SARS-CoV-2 RNA absent. This result does not rule out COVID-19 in the patient, as the sensitivity of the test depends o n the timing of the specimen collection and the quality of the specim en. Result should be correlated with patient's history and clinical presentat ion. ----ADDITIONAL INFORMATION---- This test is performed using the Aptima SARS-CoV-2 assay ([employer] which has received Emergency Use Authori zation (EUA) by the U.S. Food and Drug Administration. Fact sheets for this Emergency Use Autho rization (EUA) assay can be found at the following links: For Healthcare Providers: https://www.Solarmass a.gov/media/193141/download For Patients: https://www.fda.gov/media/ 574091/download Specimen Anatomical Collection Method Collection Time Receive d Time (Source) Location / / Volume Laterality Varies 06/09/2020 12:34 06/09/2020 2:18 (Nasopharynx) PM CDT PM CDT Shayla Alford D.O. LAB MICROBIOLOGY - GENERAL ORDERABLES Performing Organization Address City/State/[facility] Phon e Number [facility]- [address] [place] [id number] [place] [address] [place] [address] System [address] documented in this encounter Visit Diagnoses Diagnosis Screening Examination For Viral Disease documented in this encounter Additional Health Concerns Infection Onset Date Last Indicated Resolved Time COVID19 Pending 06/09/2020 06/09/2020 06/09/2020 9:05 PM CDT Assessment Noted Time PHQ-9 Depression Total Score: 18 04/28/2018 11:27 AM C DT documented as of this encounter Care Teams Drapery Examiner Relationship Specialty Start Date End Date Shayla Alford D.O. PCP - General Internal Medicine 05/22/20 [address] [place] [phone] documented as of this encounter
--- OUTSIDE RECORDS SUMMARY | 2022-05-21 11:26 | XMS_ITS | Encounter Summary ---
:1945 Author Organization [facility] Address [address] [place] [address] Care Team Providers Name Role Phone Shayla Alford D.O. Primary Care Provider [phone] Reason for Visit Reason Comments Care Coordination Follow up Encounter Details Date Type Department Care Team Description 05/26/2020 [facility] A, R.N. (Follow up) in [place], [facility] [address] [place], [place] [address] [address] [place], [place] [phone] [phone] (Work) [phone] Social History Tobacco Use Types Packs/Day Years [...] do you attend mormon or Never 2021 judaism services? Do you [...] have completed or the highest Martin, MEd, GOVERNMENT SERVICES PROFESSIONAL, CAYDEN) degree you have received? Sex Assigned at Date Recorded Male 05/21/2018 2:34 PM CDT documented as of this encounter Progress Notes Ronda Fernandez RShama. - 05/26/2020 3:39 PM CDT SUBJECTIVE REASON FOR VISIT Adult Medical Care Coordination Follow-Up HISTORY OF PRESENT ILLNESS Jonnathan Costa reports he had 1 hospitalizations since last contact. Admitted to [facility] in [place], [place]. Summary of the discussion: We discussed his recent hospitalization and TCM visit. Things seem to be going well. I walked a pretty long ways today, slowly, but I walked a half mile or so. I'm eating correctly, but I'm still tired. Patient states he has eaten only 2 peaches, some watermelon, and a banana. He is trying to lose weight and says his appetite has decreased. Required education: Care Coordination A Partner in Your Care 7942-08, Managing Your Medications 1486, and Preventing Falls at Home And how to get up if you do fall 7707-98 were mailed to the patient on this day. Chronic disease follow up: Asthma- denies any asthma symptoms. DM2- I became hypoglycemic today when I was taking a walk, so I ate some watermelon. I got really tired. Usually I feel hungry when I got hypoglycemia. Now I'm ranging 110-170 with my blood sugars, checking about 5 times a day. CHF- He weighs daily and was 200 pounds this morning, down from 236 pounds 6 weeks ago. Denies LE edema or SOB. HTN- He reports his BP has been lower lately. Yesterday in the clinic it was 113/49. If it continuesto be on the low side, he will discuss this with his md urologist in [place] on June 06. No concerns at this time about it. Medication concerns: Patient is now taking Torsemide on an alternating dosage schedule. Medication is??managed by family member,??his .??But he helps as well.??He uses a twice a day pill box. Physical functioning: Patient states he is walking more and doing more for himself. Goals Addressed This Visit's Progress Patient Stated ??? I want to see my grandbabies graduate. (pt-stated) ??? I'm going to start restoring a tractor. (pt-stated) ??? Next summer I'd like to do 5k so that will take gentle training and time to get to that. (pt-stated) Other ??? Use Emergency plan Sick Day Plan:Who to Call for More Support Follow recommendations or call your Clinic Care Team during clinic business hours. After clinichours, call Expert flattening machine operator Line for concerning symptoms. Call . Appointment line: For Family Medicine appointments in [place] call [phone] or Internal Medicine appointments [phone]. To reschedule or cancel an appointment with your RN Air Intercept Controller Supervisor, call or leave a message through the switchboard at [phone]. Nurse Air Intercept Controller Supervisor: ALLEY Bond. You may call Friday-Friday from 7:30-4:00. Primary Care: Keep regular follow-up appointments with your Primary Care Provider. Call your Care Team during office hours or call the clinic (above numbers). You may also send a message to your Provider or Air Intercept Controller Supervisor/ Care Team through your Patient Online Services (Patient Portal). If having problems using your patient portal, call the Patient Online Services Patient Portal Helpline at for assistance. Our Clinic Pharmacist is also available for individual consultation on all your medications. Ask fora Medication Therapy Management appointment if needed. SOCIAL HISTORY: Social Determinants of Health: No categories of concern noted by patient. Advanced Directives: not addressed in this call ASSESSMENT/PLAN Red flags: Asthma: very short of [...] and Hypertension: fatigue and difficulty breathing Jonnathan Costa was able to verbalize personal red flags for worsening of Asthma, CHF, HTN, DM2. and is able to respond appropriately to the symptoms. Health Maintenance: not addressed. Next contact type: Phone Call. Discussion items for the next contact include: Asthma, CHF, HTN, DM2 The patient was instructed to contact the manager medicare with any questions or concerns and statedunderstanding of the information provided. Disposition/Recommendation: recommended continue engagement in self-management activities Education: patient/caller able to teach back Caller agreeable to plan of care: yes The following references were used: nursing clinical judgement Readmission questions: Jonnathan Costa explained he went to the emergency room due to becoming very weak and short ofbreath. Patient was not able to connect with the primary care team/manager medicare when the illnessworsened because I'm not sure . Jonnathan Costa has not received medical care since leaving the hospital. Jonnathan Costa verbalized being able to follow the recommendations given during the last hospitalization. Jonnathan Costa identified the following things that would have prevented coming back to the hospital at this time: nothing. I was a duck. I'm a loyal soldier and if you tell me to do something, I'll do it. Additional comments: documented in this encounter Plan of Treatment Not on filedocumented as of this encounter Visit Diagnoses Not on filedocumented in this encounter Additional Health Concerns Assessment Noted Time PHQ-9 Depression Total Score: 18 04/28/2018 11:27 AM C DT documented as of this encounter Care Teams Mud Jack Nozzle Worker Relationship Specialty Start Date End Date Shayla Alford D.O. PCP - General Internal Medicine 05/22/[address] [phone] documented as of this encounter
--- OUTSIDE RECORDS SUMMARY | 2022-05-21 11:26 | XMS_ITS | Encounter Summary ---
:[address] [facility] Address [address] [place] [address] Care Team Providers Name Role Phone Shayla Alford D.O. Primary Care Provider [phone] Encounter Details Date Type Department Care Team Description 05/30/2020 Orders Only Department of [facility], [facility] Heart (HCC) Medicine, Cadence Ojeda M.D. (Primary Dx) Clinic, in [place], [facility] [address] [place], [place] [address] [facility] [address] [place], [place] [phone] [address] (Work) [phone] Social History Tobacco Use Types Packs/Day Years [...] do you attend yarsanism or Never 2021 sabianism services? Do you [...] have completed or the highest Martin, MEd, HARBORMASTER, CAYDEN) degree you have received? Sex Assigned [...] eGFR-Black/Afri 37 (L) >=60 06/02/2020 OWAT can Austrian mL/min/BSA 1:23 PM CDT Comment: ----ADDITIONAL INFORMATION---- Estimated GFR calculated using the 2009 CKD_EPI creatinine equation. eGFR Non-Black/ 32 (L) >=60 mL/min/BSA 06/02/2020 1:23 PM CDT OWAT Austrian Comment: ----ADDITIONAL INFORMATION---- Estimated GFR calculated using [...] Code Phon e Number [facility]- [address] [place] [address] [place] [address] System in [place] [address] documented in this encounter Visit Diagnoses Diagnosis Failure Heart (HCC) - Primary documented in this encounter Additional Health Concerns Assessment Noted Time PHQ-9 Depression Total Score: 18 04/28/2018 11:27 AM C DT documented as of this encounter Care Teams Seed Potato Cutter Relationship Specialty Start Date End Date Shayla Alford D.O. PCP - General Internal Medicine 05/22/202199 [place] [address] documented as of this encounter
--- OUTSIDE RECORDS SUMMARY | 2022-05-21 11:26 | XMS_ITS | Encounter Summary ---
:1945 Author Organization [facility] Address [address] [place] [address] Care Team Providers Name Role Phone Shayla Alford D.O. Primary Care Provider [phone] Reason for Visit Reason Comments Pre-visit Testing Orders Encounter Details Date Type Department Care Team Description 05/17/2020 Clinical Department of Cristina Pre-visit Test ing Communication Cardiovascular Manuel Barber, Orders Medicine in [place], [place] [address] [facility] [address] [place] [address] [phone] Social History Tobacco Use Types Packs/Day Years [...] do you attend orthodox or Never 2021 holiness services? Do you [...] have completed or the highest Martin, MEd, CONVERTIBLE TOP INSTALLER, CAYDEN) degree you have received? Sex Assigned at Date Recorded Male 05/21/2018 2:34 PM CDT documented as of this encounter Miscellaneous Notes Telephone Encounter - Manuel Evans M.D. - 05/19/2020 1:43 PM CDT I can think of anything else he needs right now Telephone Encounter - Ana María Fox - 05/17/2020 12:[address] Evans, This patient is being referred from [facility] and was recently hospitalized last week. Just wonderingif there was any testing you'd like that he hasn't had recently. Ana María Munguia documented in this encounter Plan of Treatment Not on filedocumented as of this encounter Visit Diagnoses Not on filedocumented in this encounter Additional Health Concerns Assessment Noted Time PHQ-9 Depression Total Score: 18 04/28/2018 11:27 AM C DT documented as of this encounter Care Teams Data Security Analyst Relationship Specialty Start Date End Date Shayla Alford D.O. PCP - General Internal Medicine 05/22/200 [address], [place] [address] documented as of this encounter
--- OUTSIDE RECORDS SUMMARY | 2022-05-21 11:27 | XMS_ITS | Encounter Summary ---
:1945 Author Organization [facility] Address [address] [place] [address] Care Team Providers Name Role Phone Chris Billings M.D. Primary Care Provider [phone] Encounter Details Date Type Department Care Team Description 05/03/2020 Clinical Communication Department of Lulu Huang Cardiovascular Diseases Tae, RJustina in [facility] [place] [address] [place] [phone] Social History Tobacco Use Types Packs/Day Years [...] do you attend restorationist or Never 2021 catholic services? Do you [...] have completed or the highest Martin, MEd, PROPERTY FIELD INSPECTOR, CAYDEN) degree you have received? Sex Assigned at Date Recorded Male 05/21/2018 2:34 PM CDT documented as of this encounter Miscellaneous Notes Telephone Encounter - Lulu Huang R.N. - 05/03/2020 11:04 AM CDT Name of person contacted: Diallo Relationship to patient: MATTHEW on file Call back number: [phone] Glazier Stained Glass: Not applicable Information provided: Communication note 05/03/20 10:58 am Shlomo Ojeda CNP. Patient's in agreement with plan as outlined per Shlomo. electronic engineering draftsperson/patient received and understood education/information provided: Yes electronic engineering draftsperson/patient agreed to the Plan of Care: Yes Telephone Encounter - Shlomo Ojeda APRN, C.N.P. - 05/03/2020 10:54 AM CDT His renal function alone is not a reason to be directly admitted to the hospital (his renal functionis basically the same as the day he was dismissed from the hospital [facility]), but his weight gain and worsening oxygenation numbers are. He would need to go through the emergency room for consideration of admission. If his oxygenation numbers are above 90% currently, I think it is safe for him to bedriven to [facility] in [place]. If his oxygen numbers are below 90% he should goto the closest emergency room. Telephone Encounter - Lulu Huang R.N. - 05/03/2020 9:36 AM CDT ASSESSMENT Patient's , Diallo (MATTHEW on-file), transferred from call center with concern regarding patient. Diallo is requesting for Jonnathan to be admitted to [place] for possible kidney failure. She stated her daughter is a physician at another facility and had reviewed the patient's labs and vitals and is concerned he needs urgent attention. , Diallo, stated he has gained 2 lbs since visit 05/01/20 and 02 sat was 87% overnight last night. This morning his 02 sat is 94% on room air. I let her know I would send this information to Shlomo Ojeda CNP for review, however, if they felt Jonnathan's symptoms are urgentand cannot wait, they should assist him to seek attention in the nearest emergency department. Patient's was agreeable to emergency department follow-up and stated she will drive him to [facility] for evaluation. PLAN Follow-up with emergency department, , Diallo, will transport patient. Disposition/Recommendation: recommended to report to the nearest emergency department. Information/Education: patient/caller able to teach back. Preference for [facility]. Caller agreeable to plan of care: yes. The following references were used: nursing clinical judgement. (ANDREW Keenan) documented in this encounter Plan of Treatment Not on filedocumented as of this encounter Visit Diagnoses Not on filedocumented in this encounter Additional Health Concerns Assessment Noted Time PHQ-9 Depression Total Score: 18 04/28/2018 11:27 AM C DT documented as of this encounter Care Teams Fixture Repairer Fabricator Relationship Specialty Start Date End Date Chris Billings M.B.B.S. MDahlia. PCP - General Family Medicine 01/10/20 05/21/[address] [place] [address] Teresa [place], [place] [phone] documented as of this encounter
--- OUTSIDE RECORDS SUMMARY | 2022-05-21 11:27 | XMS_ITS | Encounter Summary ---
:1945 Author Organization [facility] Address [address] [place] [address] Care Team Providers Name Role Phone Chris Billings M.D. Primary Care Provider [phone] Encounter Details Date Type Department Care Team Description 05/15/2020 Episode Changes Department of [facility] Ronda Fernandez, Medicine, [facility], R.N. in [place], [place] [address] [facility] [address] [place] [phone] Social History Tobacco Use Types Packs/Day Years [...] do you attend latter-day or Never 2021 christianity services? Do you [...] 03/23/2019 you have completed or the highest Mratin, MEd, STRUCTURAL ARCHITECT, CAYDEN) degree you have received? Sex Assigned at Date Recorded Male 05/21/2018 2:34 PM CDT documented as of this encounter Plan of Treatment Not on filedocumented as of this encounter Visit Diagnoses Not on filedocumented in this encounter Additional Health Concerns Assessment Noted Time PHQ-9 Depression Total Score: 18 04/28/2018 11:27 AM C DT documented as of this encounter Care Teams Java Software Relationship Specialty Start Date End Date Chris Billings M.B.BMauroSMauro, M.Coleman. PCP - General Family Medicine 01/10/20 05/21/[address] [place] [address] [place] [address] documented as of this encounter
--- OUTSIDE RECORDS SUMMARY | 2022-05-21 11:27 | XMS_ITS | Encounter Summary ---
:1945 Author Organization [facility] Address [address] [place] [address] Care Team Providers Name Role Phone Chris Billings M.D. 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 Do you [...] have completed or the highest Martin, MEd, WORM FARMER, CAYDEN) degree you have received? Sex [...] SYRINGE-NEEDLE,INSULIN,0 0 .5 ML (INSULIN SYRINGE MISC) albuterol (for_ACCUNEB) Take 2.5 mg by 0 05/25/2020 2.5 mg /3 mL nebulizer nebulization every 6 solution (six) hours as needed for wheezing or shortness of breath. albuterol sulfate 90 Inhale 2 puffs every 0 08/1909/13/2020 mcg/actuation aerosol 6 (six) hours as powdr breath activated needed. amiodarone (PACERONE) Take 400 mg (2 tabs) 60 tablet 11 04/202005/25/2020 200 mg tablet once daily for 1 month. Starting 06/06/2020 take 200 mg (1 tab) once daily. budesonide-formoteroL Inhale 2 puffs 2 1 Inhaler 11 12/16/19 20 06/30/2020 (SYMBICORT) 160-4.5 (two) times a day. mcg/actuation Start at 1 puff twice inhalerIndications: daily x 4 weeks, then Asthma Extrinsic 2 puffs twice daily Moderate (HCC) if tolerated. furosemide (LASIX) 40 mg Take 1 tablet (40 mg 30 tablet 11 0 05/07/2020 05/16/2020 tablet total) by mouth daily. gemfibroziL (LOPID) 600 [...] by mouth tabletIndications: daily. 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 As directed per DR capsule cghycw-gganbhys-dvcwnmo Take 1 capsule by 0 10/12/2020 (CREON) [...] tablet daily. Do not crush or chew. traZODone (DESYREL) 100 Take 1 tablet (100 mg 30 tablet 1 0 05/06/2020 02/22/2021 mg tablet total) by mouth at bedtime as needed for sleep. documented as of this encounter Plan of Treatment Not on filedocumented as of this encounter Procedures Procedure Name Priority Date/Time Associated Comments Diagnosis ELECTROLYTE (CHEM 4) Routine 05/09/2020 10:15 Acute On Chronic Results for this PANEL, S/P AM CDT Combined Systolic procedure are in (Congestive) And the results Diastolic section. (Congestive) Heart Failure (HCC) Chronic Kidney Disease Stage 3 Glomerular Filtration Rate 30 To 59 (HCC) CREATININE WITH EGFR, Routine 05/09/2020 10:15 Acute On Chroni c Results for this S/P AM CDT Combined Systolic procedure are in (Congestive) And the results Diastolic section. (Congestive) Heart Failure (HCC) Chronic Kidney Disease Stage 3 Glomerular Filtration Rate 30 To 59 (HCC) documented in this encounter Results Electrolyte (Chem 4) Panel (05/09/2020 10:15 AM CDT) P athologist Signature Potassium, P 4.9 3.6 - 5.2 05/09/2020 [facility] mmol/L 11:03 AM CDT Sodium, P 138 135 - 145 05/09/2020 [place] mmol/L 11:03 AM CDT Chloride, P 100 98 - 107 05/09/2020 [place] mmol/L 11:03 AM CDT Bicarbonate, P 24 22 - 29 05/09/2020 [place] mmol/L 11:03 AM CDT Anion Gap, P 14 7 - 15 05/09/2020 [facility] 11:03 AM CDT Specimen Anatomical Collection Method Collection Time Receive d Time (Source) Location / / Volume Laterality Blood (Blood, 05/09/2020 10:15 05/09/2020 Venous) AM CDT 10:17 AM CDT Shlomo Ojeda APRN, C.N.P. LAB BLOOD ADD-ON Performing Organization Address City/State/ZIP Code Phon e Number [facility]- [address] [place] [address] [place] [address] System in [place] [address] (ABNORMAL) Creatinine with Estimated GFR (05/09/2020 10:15 AM CDT) Analysis Performed At [facility] Time Signature Creatinine 2.04 (H) 0.74 - 05/09/2020 [place] 1.35 mg/dL 11:03 AM CDT eGFR-Black/Afri 36 (L) >=60 05/09/2020 [facility] can Montenegrin mL/min/BSA 11:03 AM CDT Comment: ----ADDITIONAL INFORMATION---- Estimated GFR calculated using the 2009 CKD_EPI creatinine equation. eGFR Non-Black/ 31 (L) >=60 mL/min/BSA 05/09/2020 11:03 AM CDT [facility] Comment: ----ADDITIONAL INFORMATION---- Estimated GFR calculated using the 2009 CKD_EPI creatinine equation. Specimen Anatomical Collection Method Collection Time Receive d Time (Source) Location / / Volume Laterality Blood (Blood, 05/09/2020 10:15 05/09/2020 Venous) AM CDT 10:17 AM CDT Shlomo Ojeda APRN, C.N.P. LAB BLOOD ADD-ON Performing Organization Address City/State/ZIP Code Phon e Number [facility] [address] [place] [address] [place] [address] System in [place] [address] documented in this encounter Visit Diagnoses Diagnosis Acute On Chronic Combined Systolic (Jean estive) And Diastolic (Congestive) Heart Failure (HCC) Chronic Kidney Disease Stage 3 Glomerula r Filtration Rate 30 To 59 (HCC) documented in this encounter Additional Health Concerns Assessment Noted Time PHQ-9 Depression Total Score: 18 04/28/2018 11:27 AM C DT documented as of this encounter Care Teams Edi Coordinator Relationship Specialty Start Date End Date Chris Billings M.B.B.S., M.D. PCP - General Family Medicine 01/10/20 05/21/[address] [place] [address] [place] [address] documented as of this encounter
--- OUTSIDE RECORDS SUMMARY | 2022-05-21 11:27 | XMS_ITS | Encounter Summary ---
:1945 Author Organization [facility] Address [address] [place] [address] Care Team Providers Name Role Phone Chris Billings M.D. Primary Care Provider [phone] Reason for Visit Reason Comments Post Hospital Follow-up Encounter Details Date Type Department Care Team Description 05/05/2020 Clinical Communication Department of [facility] MedicineRusty M.D. Follow-up [facility], [address] in [place], [place] [address] [address] [place], [place] [phone] [address] (Work) [phone] Social History Tobacco Use Types Packs/Day Years [...] do you attend yazidi or Never 2021 worship services? Do you [...] completed or the highest Martin, MEd, MANAGER TRAINING, CAYDEN) degree you have received? Sex Assigned at Date Recorded Male 05/21/2018 2:34 PM CDT documented as of this encounter Miscellaneous Notes Telephone Encounter - Sruthi Decker R.N. - 05/08/2020 8:10 AM CDT Call completed by Adult Medical care Coordination Telephone Encounter - Gloria Adams - 05/05/2020 1:50 PM CDT Hospital: [facility] Diagnosis: heart failure Discharge date: 05/07 When to be seen: 05/11 Comments: Dr Rusty Da Silva, pcp out next week documented in this encounter Plan of Treatment Not on filedocumented as of this encounter Visit Diagnoses Not on filedocumented in this encounter Additional Health Concerns Assessment Noted Time PHQ-9 Depression Total Score: 18 04/28/2018 11:27 AM C DT documented as of this encounter Care Teams Special Deputy Sheriff Relationship Specialty Start Date End Date Chris Billings M.B.B.S., M.D. PCP - General Family Medicine 01/10/20 05/21/[address] [place] [address] Teresa [place] se[place] [phone] documented as of this encounter
--- OUTSIDE RECORDS SUMMARY | 2022-05-21 11:27 | XMS_ITS | Encounter Summary ---
:1945 Author Organization [facility] Address [address] [place] [address] Care Team Providers Name Role Phone Chris Billings M.D. Primary Care Provider [phone] Encounter Details Date Type Department Care Team Description 05/16/2020 Hospital Encounter Department of Bakkali-Derkse Anemia ; Laboratory Medicine n, Gianna Mcguire Chronic Systolic (Congestive) Heart Fail ure (HCC) in [place], [address] [address] [place] [phone] Social History Tobacco Use [...] do you attend christianity or Never 2021 yarsani services? Do you [...] have completed or the highest Martin, MEd, STATION SUPERINTENDENT, CAYDEN) degree you have received? Sex Assigned [...] Forms Angina Pectoris (Angina Equivalent) ([facility]), Diabetes Mellitus Type 2 ([facility]), Hypertension Essential Primary nvzrhg-vvcfkhwo-pjzbefe 2 capsules 3 (three) 0 10/12/2020 (CREON) times a day with 6,000-19,000-30,000 Unit meals. As directed per capsule zduewt-oshnwjmj-shkggqu Take 1 capsule by 0 10/12/2020 (CREON) [...] Associated Diagnosis Comme nts CBC WITH Routine 05/16/2020 1:51 PM Anemia Results f or this DIFFERENTIAL, B CDT procedure ar e in the results section. BASIC METABOLIC Routine 05/16/2020 1:51 PM Chronic Systolic Re sults for this PANEL, S/P CDT (Congestive) Heart procedure are in Failure (HCC) the results section. documented in this encounter Results (ABNORMAL) Basic Metabolic Panel (05/16/2020 1:51 PM CDT) Analysis Performed At Patho logist Time Signature Potassium, P 4.5 3.6 - 5.2 05/16/2020 [place] mmol/L 3:37 PM CDT Sodium, P 139 135 - 145 05/16/2020 [place] mmol/L 3:37 PM CDT Chloride, P 105 98 - 107 05/16/2020 [place] mmol/L 3:37 PM CDT Bicarbonate, P 22 22 - 29 05/16/2020 [place] mmol/L 3:37 PM CDT Anion Gap, P 12 7 - 15 05/16/2020 [place] 3:37 PM CDT BUN (Blood Urea 53 (H) 8 - 24 05/16/2020 [place] Nitrogen), P mg/dL 3:37 PM CDT Creatinine 2.14 (H) 0.74 - 05/16/2020 [place] 1.35 mg/dL 3:37 PM CDT eGFR-Black/Afri 34 (L) >=60 05/16/2020 [place] can Pry[place]ig mL/min/BSA 3:37 PM CDT Comment: ----ADDITIONAL INFORMATION---- Estimated GFR calculated using the 2009 CKD_EPI creatinine equation. eGFR Non-Black/ 29 (L) >=60 mL/min/BSA 05/16/2020 3:37 PM CDT [place] Comment: ----ADDITIONAL INFORMATION---- Estimated GFR calculated using the 2009 CKD_EPI creatinine equation. Calcium, Total, P 9.1 8.8 - 10.2 mg/dL 05/16/2020 3:37 PM CDT [place] Glucose, P 204 (H) 70 - 140 mg/dL 05/16/2020 3:37 PM CDT O MARCK Specimen Anatomical Collection Method Collection Time Receive d Time (Source) Location / / Volume Laterality Blood (Blood, 05/16/2020 1:51 PM 05/16/20 20 2:53 Venous) CDT PM CDT Shayla Alford D.O. LAB BLOOD ADD-ON Performing Organization Address City/State/ZIP Code Phon e Number [facility]- [address] [place] [address] [facility] [place] [address] System in [place] [address] (ABNORMAL) CBC with Differential, Blood (05/16/2020 1:51 PM CDT) [facility] gist Method Time Signature Hemoglobin 10.2 (L) 13.2 - 05/16/2020 [facility] 16.6 g/dL 3:00 PM CDT Hematocrit 31.8 (L) 38.3 - 05/16/2020 [facility] 48.6 % 3:00 PM CDT Erythrocytes 3.37 (L) 4.35 - 05/16/2020 [facility] 5.65 3:00 PM CDT x10(12)/L MCV 94.4 78.2 - 05/16/2020 [facility] 97.9 fL 3:00 PM CDT RBC Distrib Width 15.4 (H) 11.8 - 05/16/2020 [facility] 14.5 % 3:00 PM CDT Platelet Count 222 135 - 317 05/16/2020 [facility] x10(9)/L 3:00 PM CDT Leukocytes 6.4 3.4 - 9.6 05/16/2020 [facility] x10(9)/L 3:00 PM CDT Neutrophils 4.30 1.56 - 05/16/2020 [facility] 6.45 3:00 PM CDT x10(9)/L Lymphocytes 1.26 0.95 - 05/16/2020 [facility] 3.07 3:00 PM CDT x10(9)/L Monocytes 0.50 0.26 - 05/16/2020 [facility] 0.81 3:00 PM CDT x10(9)/L Eosinophils 0.25 0.03 - 05/16/2020 [facility] 0.48 3:00 PM CDT x10(9)/L Basophils 0.05 0.01 - 05/16/2020 [facility] 0.08 3:00 PM CDT x10(9)/L Specimen Anatomical Collection Method Collection Time Receive d Time (Source) Location / / Volume Laterality Blood (Blood, 05/16/2020 1:51 PM 05/16/20 20 2:53 Venous) CDT PM CDT Shayla Alford D.O. LAB BLOOD ADD-ON Performing Organization Address City/State/ZIP Code Phon e Number [facility]- [address] [place] [address] [facility] [place] [address] System in [place] [address] [facility] documented in this encounter Visit Diagnoses Diagnosis Anemia Chronic Systolic (Congestive) Heart Fail ure (HCC) documented in this encounter Additional Health Concerns Assessment Noted Time PHQ-9 Depression Total Score: 18 04/28/2018 11:27 AM C DT documented as of this encounter Care Teams Yard Coordinator Relationship Specialty Start Date End Date Chris Billings M.B.BRhoda Walker. PCP - General Family Medicine 01/10/20 05/21/[address] [place] [address] [place] [phone] documented as of this encounter
--- OUTSIDE RECORDS SUMMARY | 2022-05-21 11:27 | XMS_ITS | Encounter Summary ---
:1945 Author Organization [facility] Address [address] [place] [address] Care Team Providers Name Role Phone Chris Billings M.D. Primary Care Provider [phone] Reason for Visit Reason Comments Post Hospital Follow-up [place] 04/30/20 @ 0914 Encounter Details Date Type Department Care Team Description 05/02/2020 Clinical Department of Ronda Fernandez Post Hospi ching Communication Family Medicine, A, R.N. Follow-up ([facility], [address] [facility] 04/30/20 @ 0914) in [facility] [address] [place], [place] (Work) [phone] Social History Tobacco Use Types Packs/Day [...] do you attend worship or Never 2021 nondenominational services? Do you [...] have completed or the highest Martin, MEd, FELL CUTTER, CAYDEN) degree you have received? Sex Assigned at Date Recorded Male 05/21/2018 2:34 PM CDT documented as of this encounter Miscellaneous Notes Telephone Encounter - Ronda Fernandez R.N. - 05/02/2020 9:32 AM CDT Care Coordination Patient meets criteria for Adult Medical Care Coordination. Discussed with patient the role of the Primary Care Registered Nurse Care Coordination Program. Patient agrees to a telephonic visit by the RN Belt And Link Assembly Supervisor in a few days. All questions answered. Telephone Encounter - Ronda Fernandez R.N. - 05/02/2020 8:36 AM CDT Patient called for post hospital follow up, but was unable to reach. Message left, and patient was asked to return my call. Phone number provided. Telephone Encounter - Ronda Fernandez R.N. - 05/02/2020 8:14 AM CDT SUBJECTIVE REASON FOR CALL Post-Hospital follow-up phone call with patient. Admission Date: 04/28/2020 Discharge Date: 04/30/2020 Discharge Diagnosis: coronary arthrosclerosis LACE+ score =71 General Health Notes today that he is feeling the same since discharged from the hospital. Concerns/questions: Patient has no questions or concerns. Symptom Review No new symptoms since discharge from the hospital. Activities of Daily Living Patient is independent with activities of daily living. Uses a cane to ambulate. Has the patient had a fall since discharge: no. Patient has fallen in the past year. Has ambulation changed since hospitalization: no. Difficulty ambulating: no. The patient lives with spouse. Patient identified if needing assistance, he could depend on . Wounds/Incisions/Lines, Drains and Airways None Medication Status Current medication list was reviewed and updated as needed. Reports medication is managed by family member, his and the patient. He uses a twice a day pillbox. Medications concerns: none. Medication compliance for current medications: yes. High Risk Medications Diabetic Medications: type: insulin. Home glucose monitoring: yes; frequency: 4-5 times a day; last completed: this morning; result 134. Difficulty managing diabetes since discharge: no. Home Services Utilized The patient is not currently receiving home health services. Equipment/Supplies for Home Use None ordered Assessment/Plan I'm feeling purely exhausted, but I went to the compressor assembler yesterday. This morning, patient notices more edema in his feet. Weight this morning was 223 pounds, yesterday it was just slightly lower but patient didn't write yesterday's number down. Mr. Costa did not notice much increase in urination after beginning Lasix last evening but Shlomo told me this was a very low and I was probably under dosed with it. He has been sleeping in a chair lately, as lying in bed makes me feel anxious or something. We reviewed the red flags for worsening CHF and what to do should symptoms worsen, or new develop. Patient mentions he has had high blood sugars recently, as high as 600 last month without symptoms. He does get symptomatic when his blood sugars get low. He feels his heart racing and feels shaky. He says the low numbers almost always occur at night, and after he eats something and begins to feel better, will have a wonderful night's sleep. He does often carry candy or something with him when out ofthe house in case symptoms would occur. Per PCP direction, he is not taking his Metformin at this time. The patient mentions that since his [place] PCP has left (or will be leaving soon), he plans to establish care in [place] [facility] once new doctor starts in May. Follow-up Appointment PCP Follow-up appointment scheduled: no. Specialty Follow-up scheduled with cardiology yesterday, and patient attended.. Recommendations Referral actions: care coordination. Additional recommendations: home care instructions reinforced or provided. Disposition/Recommendation: referral for services Adult Medical Care Coordination. Education: patient/caller able to teach back. Caller agreeable to plan of care: yes. documented in this encounter Plan of Treatment Not on filedocumented as of this encounter Visit Diagnoses Not on filedocumented in this encounter Additional Health Concerns Assessment Noted Time PHQ-9 Depression Total Score: 18 04/28/2018 11:27 AM C DT documented as of this encounter Care Teams Gastrointestinal Technician Relationship Specialty Start Date End Date Chris Billings M.B.B.S., M.D. PCP - General Family Medicine 01/10/20 05/21/[address] [place] [phone] documented as of this encounter
--- OUTSIDE RECORDS SUMMARY | 2022-05-21 11:27 | XMS_ITS | Encounter Summary ---
:1945 Author Organization [facility] Address [address] [place] [address] Care Team Providers Name Role Phone Chris Billings M.D. Primary Care Provider [phone] Encounter Details Date Type Department Care Team Description 05/03/2020 Clinical Communication Department of Internal Shlomo Ojeda, Medicine in [facility], C.N. [facility] [address] [place] [phone] Social History Tobacco Use Types Packs/Day Years [...] do you attend islam or Never 2021 congregational services? Do you [...] have completed or the highest Martin, MEd, EQUIPMENT INSTALLATION PROFESSIONAL, CAYDEN) degree you have received? Sex Assigned at Date Recorded Male 05/21/2018 2:34 PM CDT documented as of this encounter Miscellaneous Notes Telephone Encounter - Rachael Mendez R.N. - 05/03/2020 10:46 AM CDT Returned call to Diallo (MATTHEW signed) and Jonnathan was with Diallo. Diallo wanted specific creatinine number from recent lab work. Appears lab note from Shlomo was reviewed previously. Provided recent creatinine. Diallo stated understanding and agreement with plan of care. Labs to be redrawn 05/09. Telephone Encounter - Awa Parham - 05/03/2020 10:24 AM CDT Patient's is looking for lab results. Diallo - [phone] documented in this encounter Plan of Treatment Not on filedocumented as of this encounter Visit Diagnoses Not on filedocumented in this encounter Additional Health Concerns Infection Onset Date Last Indicated Resolved Time COVID19 Pending 05/03/2020 05/03/2020 05/03/2020 10:07 PM CDT Assessment Noted Time PHQ-9 Depression Total Score: 18 04/28/2018 11:27 AM C DT documented as of this encounter Care Teams Bilingual Executive Assistant Relationship Specialty Start Date End Date Chris Billings M.B.B.S., M.D. PCP - General Family Medicine 01/10/20 05/21/[address] [place] [address] [phone] documented as of this encounter
--- OUTSIDE RECORDS SUMMARY | 2022-05-21 11:27 | XMS_ITS | Encounter Summary ---
:1945 Author Organization [facility] Address [address] [place] [id number] Care Team Providers Name Role Phone Shayla Alford D.O. Primary Care Provider [phone] Reason for Visit Reason Comments Care Coordination Intake Encounter Details Date Type Department Care Team Description 05/12/2020 Patient Outreach Department of Ronda Fernandez Family Medicine, A, R.N. (Intake) [facility], [address] [facility] [phone] [place] [address] [place], [place] (Work) [phone] Social History Tobacco Use Types Packs/Day [...] do you attend scientology or Never 2021 sikhism services? Do you [...] have completed or the highest Martin, MEd, PROTECTION MGR, CAYDEN) degree you have received? Sex Assigned at Date Recorded Male 05/21/2018 2:34 PM CDT documented as of this encounter Progress Notes Ronda Fernandez RShama. - 05/12/2020 2:52 PM CDT SUBJECTIVE REASON FOR VISIT Adult Medical Care Coordination - Initial Intake Assessment HISTORY OF PRESENT ILLNESS Jonnathan is eligible for Adult Care Coordination with a LACE+ score of 78. He has the following chronicconditions: DM neuropathy, stroke, Asthma, Type 2 Diabetes, Heart Failure and Hypertension. Patient goal(s): Next summer I'd like to do 5k so that will take gentle training and time to get tothat. I'm going to start restoring a tractor. Medication Management: Current medication list was reviewed and updated as appropriate. Patient verbalized the following regarding their medications: medication is managed by family member, his . But he helps as well. He uses a twice a day pill box. Pain Assessment: Reports acute pain in his left rotator cuff. Describes the pain as sharp, with an intensity of 2. Contributing factors include movement. The patient has tried rest, repositioning, which has been helpful. Red Flags: The patient is able to verbalize red flags for worsening symptoms of Asthma, Type 2 Diabetes, Heart Failure and Hypertension Reports the following red flags that may alert him to potential worsening of the disease process: Asthma: difficulty walking and talking due to shortness of breath and difficulty breathing , Diabetes: average blood sugar >210: , Heart Failure: shortness of breath with exertion, shortness of breath when lying down, unrelieved chest pain, weight gain or loss of more than 5 lbs in 2 days, swelling inlegs, ankles or feet and reduced ability to exercise and Hypertension: severe headache and fatigue Utilizes the following tools to track and monitor their chronic disease: glucometer and scale. Fall Risk Assessment: Have you fallen within the last year or do you fear you might fall?: Yes Reviewed the patient's risk for falls: prior history of falls. Fall prevention: removal of throw rugs, clearing walkways and use of assistive devices. Community Services/Equipment Use: Currently using the following community services: [place] services. Currently using the following devices/equipment: glucometer and cane. ASSESSMENT / PLAN Reviewed emergency symptoms/red flags for Asthma, Type 2 Diabetes, Heart Failure and Hypertension and when to notify healthcare team. Additional concerns expressed by patient: I'm tremendously weak, but I can now walk a block before I get tired. I'm taking on more water but my weight isn't changing. This morning he weighed 214 pounds, same as yesterday. No SOB with resting. No PND. He does elevate his feet when resting. He does have compression stockings, but has not been wearing them the last few days. Encouraged use daily. Lastnight was first full night sleep since he was discharged. He reports that he has changed his diet hever more strict -no sugar or salt, and not huge portions. Blood sugars range 100-230, averaging 170. This morning was 210. Periods of stress and anxiety will increase his blood sugars. He denies any symptoms of hypo/hyperglycemia. He mentions that his balance is still off like when you're riding on a hay bale on the top of a hayrack as its going down the road. He says it was first noticed 3 years ago and has been slowly worsening. I encouraged him to discuss this at his TCM on 05/16/20. Provided the patient with instructions for contacting the healthcare team (including our care team phone number and the [facility] pitting machine operator phone number for off-hour contact with the physician senior health consultant). The patient was encouraged to report any questions, concerns, new or worsening symptoms. Follow-up Appointment: PCP Follow-up appointment scheduled: Yes; Scheduled on 05/16/20. The patient plans to go to the appointment. The patient has no concerns about getting to the appointment.. Disposition/Recommendation: referral for services Adult Medical Care Coordination Education: patient/caller able to teach back Caller agreeable to plan of care: yes The following references were used: nursing clinical judgement Ronda Fernandez R.N. - 05/12/2020 2:52 PM CDT The patient was provided the option to enroll in the program. Consent for Complex Chronic Condition Management services was obtained from the patient. The patient was informed that their insurance willbe billed and that only one provider can provide and bill for Complex Chronic Condition Management. The patient was encouraged to contact the RN Heeler or patient account services with any questions regarding the service. documented in this encounter Plan of Treatment Not on filedocumented as of this encounter Visit Diagnoses Not on filedocumented in this encounter Additional Health Concerns Assessment Noted Time PHQ-9 Depression Total Score: 18 04/28/2018 11:27 AM C DT documented as of this encounter Care Teams Cnc Manager Relationship Specialty Start Date End Date Shayla Alford D.O. PCP - General Internal Medicine 05/22/202199 [address] [phone] documented as of this encounter
--- OUTSIDE RECORDS SUMMARY | 2022-05-21 11:27 | XMS_ITS | Encounter Summary ---
:1945 Author Organization [facility] Address [address] [place] [address] Care Team Providers Name Role Phone Chris Billings M.D. Primary Care Provider [phone] Reason for Referral MRI/CAT/PET Scan (Routine) - Closed Specialty Diagnoses / Procedures Referred By Contact Refer red To Contact Radiology Diagnoses Effusion Pleural Shayla Alford [facility] [place] [facility] Procedures CT Chest without IV Contrast D.O. [address] [place] [phone] Referral ID Status Reason Start Date Expiration Date Visits Requ ested Visits Authorized [id number] Closed 05/16/2020 05/16/2021 1 1 Reason for Visit MRI/CAT/PET Scan (Routine) - Closed Specialty Diagnoses / Procedures Referred By Contact Refer red To Contact Radiology Diagnoses Effusion Pleural Shayla Alford [facility] [place] [facility] Procedures CT Chest without IV Contrast D.O. [address] [place] [phone] Referral ID Status Reason Start Date Expiration Date Visits Requ ested Visits Authorized [id number] Closed 05/16/2020 05/16/2021 1 1 Encounter Details Date Type Department Care Team Description 05/16/2020 Hospital Encounter Department of Charmaine Alford Pleural Radiology in Shayla [place] D. O. [place] [address] [place] [phone] Social History Tobacco Use Types Packs/Day Years [...] do you attend anglican or Never 2021 hoahaoism services? Do you [...] have completed or the highest Martin, MEd, PRINCIPAL JAVA DEVELOPER, CAYDEN) degree you have received? Sex [...] by mouth tabletIndications: daily. 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 As directed per DR capsule hkzmmr-yskivvat-ngavedl Take 1 capsule by 0 10/12/2020 ([facility]) [...] Name Priority Date/Time Associated Comments Diagnosis CT CHEST WITHOUT RAD - Routine 05/16/2020 1:34 Effusion Pleural Res ults for this IV CONTRAST (most inpatients PM CDT procedure a re in and all the results outpatients) section. documented in this encounter Results CT Chest without IV Contrast (05/16/2020 1:34 PM CDT) Anatomical Region Laterality Modality Chest, Thoracic RST LOS, Thoracic ARZ LOS, Thoracic N/A Computed Tomography FLA LOS Specimen (Source) Anatomical Collection Method Collection Time Re ceived Time Location / / Volume Laterality 05/16/2020 1:56 PM CDT Impressions 05/16/2020 2:04 PM CDT 1. ??New large bilateral pleural effusions. 2. ??Mild pulmonary edema. 3. ??New multiple indeterminate mediasti nal lymph nodes. 4. ??Greatly increased chronic calcific pancreatitis. Narrative 05/16/2020 2:04 PM CDT EXAM: CT CHEST WITHOUT IV CONTRAST 3D/MIPS: 3D Post-Processing performed on a dependent workstation. COMPARISON: CT 04/22/18 FINDINGS: Large bilateral pleural effusi ons. Diffuse mild interstitial thickening and scattered groundglass opa cities are suspicious for mild pulmonary edema. Mild scattered air trapping. Calc ified pulmonary granulomas. Mild cardiac enlargement. Mitral annular calcifications. Diffuse arterial calcifications including coronary artery calcifications. New multiple mediastinal lymph nodes, la rgest pretracheal measuring 1.4 x 0.9 cm (series 3 image 164). The nodes are nons pecific and could be reactive, inflammatory, or neoplastic. Imaged upper abdomen shows marked extens akil pancreatic parenchymal calcifications from chronic calcific dahl creatitis. This is similar to CT abdomen pelvis 10/11/19. 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 Stable thickening left adren al gland. Otherwise negative. Epic Semi-Urgent results utilized. Procedure Note Franklyn Holm M.D. - 05/16/2020 EXAM: CT CHEST WITHOUT IV CONTRAST 3D/MIPS: 3D Post-Processing performed on a dependent workstation. COMPARISON: CT 04/22/18 FINDINGS: Large bilateral pleural effusi ons. Diffuse mild interstitial thickening and scattered groundglass opa cities are suspicious for mild pulmonary edema. Mild scattered air trapping. Calc ified pulmonary granulomas. Mild cardiac enlargement. Mitral annular calcifications. Diffuse arterial calcifications including coronary artery calcifications. New multiple mediastinal lymph nodes, la rgest pretracheal measuring 1.4 x 0.9 cm (series 3 image 164). The nodes are nons pecific and could be reactive, inflammatory, or neoplastic. Imaged upper abdomen shows marked extens akil pancreatic parenchymal calcifications from chronic calcific dahl creatitis. This is similar to CT abdomen pelvis 10/11/19. 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 Stable thickening left adren al gland. Otherwise negative. Epic Semi-Urgent results utilized. IMPRESSION: 1. New large bilateral pleural effusions . 2. Mild pulmonary edema. 3. New multiple indeterminate mediastina l lymph nodes. 4. Greatly increased chronic calcific pa ncreatitis. Shayla SALINAS CT PROCEDURES documented in this encounter Visit Diagnoses Diagnosis Effusion Pleural documented in this encounter Additional Health Concerns Assessment Noted Time PHQ-9 Depression Total Score: 18 04/28/2018 11:27 AM C DT documented as of this encounter Care Teams Horseback Riding Instructor Relationship Specialty Start Date End Date Chris Billings M.B.B.S., M.D. PCP - General Family Medicine 01/10/20 05/21/[address] [place] [address] [place] [phone] documented as of this encounter
--- OUTSIDE RECORDS SUMMARY | 2022-05-21 11:27 | XMS_ITS | Encounter Summary ---
:1945 Author Organization [facility] Address [address] [place] [address] Care Team Providers Name Role Phone Chris Billings M.D. Primary Care Provider [phone] Encounter Details Date Type Department Care Team Description 05/02/2020 Clinical Communication Department of Internal Shlomo Ojeda, Medicine in [facility], C.N. [facility] [address] [place] [phone] Social History Tobacco Use Types Packs/Day Years [...] you attend oriental orthodox or Never 2021 alevism services? Do you [...] have completed or the highest Martin, MEd, QUALITY ANALYST/TECHNICAL WRITER, CAYDEN) degree you have received? Sex Assigned at Date Recorded Male 05/21/2018 2:34 PM CDT documented as of this encounter Miscellaneous Notes Telephone Encounter - Kira Sorenson M - 05/02/2020 1:50 PM CDT ([facility]: If the patient is not [...] last 14 days? no Route reply to: Scheduling Contact Number: [phone] documented in this encounter Plan of Treatment Not on filedocumented as of this encounter Visit Diagnoses Not on filedocumented in this encounter Additional Health Concerns Assessment Noted Time PHQ-9 Depression Total Score: 18 04/28/2018 11:27 AM C DT documented as of this encounter Care Teams Lead Maintenance Technician Relationship Specialty Start Date End Date Chris Billings M.B.B.S., M.D. PCP - General Family Medicine 01/10/20 05/21/[address] [place] [address] [place] [phone] documented as of this encounter
--- OUTSIDE RECORDS SUMMARY | 2022-05-21 11:27 | XMS_ITS | Encounter Summary ---
:1945 Author Organization [facility] Address [address] [place] [address] Care Team Providers Name Role Phone Chris Billings M.D. Primary Care Provider [phone] Reason for Referral Outpatient (Routine) - Closed Specialty Diagnoses / Procedures Referred By Contact Refer red To Contact Pulmonary Medicine Diagnoses Asthma Extrinsic Moderate (HCC) Chronic Systolic (Congestive) Heart Failure (HCC) Effusion Pleural Dyspnea Multifactorial [facility] Shayla D.Sabrina [address] [place] [phone] Referral ID Status Reason Start Date Expiration Date Visits V isits Requested Authorized [id number] Closed Specialty 05/16/2020 05/16/2021 1 1 Services Required MRI/CAT/PET Scan (Routine) - Closed Specialty Diagnoses / Procedures Referred By Contact Refer red To Contact Radiology Diagnoses Effusion Pleural Shayla Alford [facility] Region Procedures CT Chest without IV Contrast D.O. [address] [place] [phone] Referral ID Status Reason Start Date Expiration Date Visits Requ ested Visits Authorized [id number] Closed 05/16/2020 05/16/2021 1 1 Outpatient (Routine) - Closed Specialty Diagnoses / Referred By Contact Referred To Contact Procedures Cardiovascular Diseases / Diagnoses Chronic Systolic (Congestive) Heart Failure (HCC) Enmanuel Alford [facility] Cardiovascular Disease Tulio Mcguire [address] [place] [address] Referral ID Status Reason Start Date Expiration Date Visits Requ ested Visits Authorized [id number] Closed 05/16/2020 05/16/2021 1 1 Reason for Visit Reason Comments Post Hospital Follow-up Shortness of Breath Fatigue Blood sugar Discuss Other Balance issues Sleeping Problem Terrrible flucuations with s leecorazon Appointment Request (Routine) - Closed Specialty Diagnoses / Procedures Referred By Contact Refer red To Contact Family Medicine Referral ID Status Reason Start Date Expiration Date Visits Requ ested Visits Authorized [id number] Closed 05/05/2020 05/05/2021 1 1 Encounter Details Date Type Department Care Team Description 05/16/2020 Office Visit Department of [place] Dyspnea Mul tifactorial (Primary Dx); Internal Medicine in , Gianna Mcguire Asthma Extrinsic Moderate (HCC); [place], [place] [address] Chronic Systolic (Congestive) Heart Fail ure (HCC); [address] [place], [place] Effusion Pleural; [place] [address] Anemia [phone] Social History Tobacco Use Types Packs/Day [...] do you attend jewish or Never 2021 taoist services? Do you belong to any clubs or No 10/09/2021 organizations such as jewish groups, unions, [employer]ight[employer]ine or athletic groups, or school groups? 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 Sex Assigned at Date Recorded Male 05/21/2018 2:34 PM CDT documented as of this encounter Last Filed Vital Signs Vital Sign Reading Time Taken Comments Blood Pressure 126/52 05/16/2020 11:28 AM CDT Pulse 55 05/16/2020 11:28 AM CDT Temperature 36.4 ??C (97.5 ??F) 05/16/2020 11:28 AM CDT Respiratory Rate - - Oxygen Saturation 94% 05/16/2020 11:28 AM CDT Inhaled Oxygen Concentration - - Weight 103 kg (226 lb 3.1 oz) 05/16/2020 11:28 AM CDT Height - - Body Mass Index 29.03 05/03/2020 7:25 PM CDT documented in this encounter Progress Notes Shayla Alford D.O. - 05/16/2020 11:30 AM CDT SUBJECTIVE CHIEF COMPLAINT / REASON FOR VISIT Jonnathan Costa is a 74 y.o. male who presents for evaluation of Post Hospital Follow-up; Shortness of Breath; Fatigue; Blood sugar (Discuss); Other (Balance issues); and Sleeping Problem (Terrrible flucuations with sleep). HISTORY OF PRESENT ILLNESS This is a very pleasant 74-year-old male with past medical history significant for moderate asthma with no recent exacerbations, history of congestive heart failure with recent echocardiogram 04/17/2020 with EF of 42%, presents today for follow-up after hospital admission secondary to dyspnea and acute congestive heart failure exacerbation. The patient was admitted to the hospital secondary to decompensated congestive heart failure, dyspnea, complicating his medical history is contact pancreatitis and type 2 diabetes on insulin and oral medications in addition to chronic kidney disease. The patient underwent CT cardiac angio which showed triple-vessel disease and mild stenosis of the proximal D2. Echocardiogram with 42% ejection fraction and wall motion abnormalities. He was seen by cardiology and found to have acute on chronic congestive heart failure and started on diuretics.. In athe patient was given IV diuretics and transition to oral in addition to initiation of hydralazine for afterload reduction. His losartan was discontinued and metformin was held. He was continued on hismetoprolol atorvastatin Imdur and Plavix. Amiodarone 400 mg was initiated for anti rhythmic therapy.Dose was reduced to 400 mg daily for 1 month and then 200 mg daily after that. Unfortunately, since discharge the patient has been experiencing increased shortness of breath and discomfort. The patient feels that he cannot fill up his lungs. He has been struggling with increased fatigue and weakness, in addition to insomnia issues as well as balance problems. The patient use early [facility] in [place], and has not been seen by myself in the past. His diabetes is followed by Endocrine. At this point, due to his increased dyspnea weakness, and even though his saturations are 94% on room air. The patient was having difficulties completing full sentences. I recommended we repeat a stat CT chest. Unfortunately we could not use contrast due to his kidney disease. CT chest returned with signs of new large pleural effusions and hilar lymphadenopathy in addition to multiple nodules. At this point, the patient will benefit from direct admission to the hospital for thoracentesis for diagnostic and therapeutic reasons. In addition, he continues to have acute on chronic renal failure and anemia of unclear etiology. I called the patient to inform him of the results I also contacted the hospitalist Dr Cortes will beaccepting the patient as a direct admission. On examination, the patient does have increase pitting edema bilaterally. Crackles in the lungs, systolic murmur, no JVD noted. The following portions of the patient's history were reviewed and updated as appropriate: allergies,current medications, family history, medical history, social history, surgical history and problem list. REVIEW OF SYSTEMS A ten point ROS is otherwise negative OBJECTIVE BP (!) 126/52 (BP Location: Right arm, Patient Position: Sitting, Cuff Size: Large) Pulse (!) 55 Temp 36.4 ??C (Temporal) Wt 103 kg SpO2 94% BMI 29.03 kg/m?? PHYSICAL EXAM General Appearance: alert, mild distress. Neck: Supple, no adenopathy; thyroid symmetric, normal size, no bruits. No JVD Lungs: Bilateral crackles at the bases, no expiratory wheezes.. Heart: 2/6 systolic murmur right sternal border, with PVCs. Regular rate and rhythm. Extremities: Bilateral 2+ pitting edema.. IMPRESSION: No CT evidence of a large, central or proximal segmental pulmonary embolus. Moderate to large pleural effusions with adjacent atelectasis in the lower lobes. Ill-defined ground-glass opacities could be related to compressive changes versus nonspecific infectious/inflammatory pneumonitis and/or evolving pulmonary edema. Correlate clinically. Mediastinal and hilar adenopathy. Splenomegaly. Further evaluation to exclude a lymphoproliferative disorder or lymphoma, versus metastatic adenopathy, is recommended. Other findings as above. ASSESSMENT / PLAN Dyspnea Multifactorial Asthma Extrinsic Moderate (HCC) Chronic Systolic (Congestive) Heart Failure (HCC) The patient was admitted to the hospital secondary to decompensated congestive heart failure, dyspnea, complicating his medical history is contact pancreatitis and type 2 diabetes on insulin and oral medications in addition to chronic kidney disease. The patient underwent CT cardiac angio which showed triple-vessel disease and mild stenosis of the proximal D2. Echocardiogram with 42% ejection fraction and wall motion abnormalities. He was seen by cardiology and found to have acute on chronic congestive heart failure and started on diuretics.. In athe patient was given IV diuretics and transition to oral in addition to initiation of hydralazine for afterload reduction. His losartan was discontinued and metformin was held. He was continued on hismetoprolol atorvastatin Imdur and Plavix. Amiodarone 400 mg was initiated for anti rhythmic therapy.Dose was reduced to 400 mg daily for 1 month and then 200 mg daily after that. Unfortunately, since discharge the patient has been experiencing increased shortness of breath and discomfort. The patient feels that he cannot fill up his lungs. He has been struggling with increased fatigue and weakness, in addition to insomnia issues as well as balance problems. The patient use [facility] in [place], and has not been seen by myself in the past. His diabetes is followed by Endocrine. At this point, due to his increased dyspnea weakness, and even though his saturations are 94% on room air. The patient was having difficulties completing full sentences. I recommended we repeat a stat CT chest. Unfortunately we could not use contrast due to his kidney disease. CT chest returned with signs of new large pleural effusions and hilar lymphadenopathy in addition to multiple nodules. At this point, the patient will benefit from direct admission to the hospital for thoracentesis for diagnostic and therapeutic reasons. In addition, he continues to have acute on chronic renal failure and anemia of unclear etiology. The patient was also instructed to take an additional 20 mg of his diuretic today. I called the patient to inform him of the results I also contacted the hospitalist Dr Cortes who will be accepting the patient as a direct admission. On examination, the patient does have increase pitting edema bilaterally. Crackles in the lungs, systolic murmur, no JVD noted. - Cardiovascular Disease - General cardiology consult (clinic); Future; Expected date: 05/16/2020 (Urgent - F2F only) - Basic Metabolic Panel; Future; Expected date: 05/16/2020 (Before next visit) Effusion Pleural - CT Chest without IV Contrast; Future; Expected date: 05/16/2020 Anemia - CBC with Differential, Blood; Future; Expected date: 05/16/2020 Other orders - furosemide (LASIX) 40 mg tablet; Take 1.5 tablets (60 mg total) by mouth daily., Starting Fri05/16/2020, Until Fri05/16/2021, Normal - [facility] office visit (clinic); Future; Expected date: 05/16/2020 - [facility] office visit (clinic); Future; Expected date: 05/30/2020 - Pulmonary Medicine - General consult (clinic); Future; Expected date: After tests Time spent today was 60 minutes more than 50% in counseling. Electronically signed by: Shayla Alford D.O. 05/16/20 5:59 PM CDT documented in this encounter Miscellaneous Notes Addendum Note - Shayla Alford D.O. - 05/16/2020 11:30 AM CDT Addended by: SHAYLA ALFORD on: 05/18/2020 02:09 PM Modules accepted: Orders documented in this encounter Plan of Treatment Scheduled Referrals Name Type Priority Associated Diagnoses Order S chedule Cardiovascular Disease Outpatient Routine Chronic Systolic E xpected: - General cardiology Referral (Congestive) Heart 0 05/16/2020 consult (clinic) Failure ([facility]) (Approxima te), Expires: 05/16/2023 Pulmonary Medicine - Outpatient Routine Asthma Extrinsic Exp ected: General consult Referral Moderate ([facility]) 05/17/2020, (clinic) Chronic Systolic Expires: (Congestive) Heart 3 Failure ([facility]) Effusion Pleural Dyspnea Multifactorial documented as of this encounter Results PUL Exhaled Nitric Oxide (06/14/2020 2:29 PM CDT) athologist Signature Exhaled NO Oral 36.5 MMODAL Parts per 39 MMODAL billion (ULN) Specimen (Source) Anatomical Location Collection Method / Collectio n Time Received Time / Laterality Volume Shayla Alford D.O. PFT ORDERABLES Performing Organization Address City/State/ZIP Code Phon e Number MMODAL MMODAL NA Pulmonary Function Tests (06/14/2020 1:25 PM CDT) athologist Signature VC MAX PRE 4.67 L 06/15/2020 [facility] 9:12 AM CDT SUITE FVC 4.67 L 06/15/2020 [facility] 9:12 AM CDT SUITE FEV1 3.31 L 06/15/2020 [facility] 9:12 AM CDT SUITE FEV1/FVC 70.90 % 06/15/2020 [facility] 9:12 AM CDT SUITE [id number]% 2.26 L/s 06/15/2020 [facility] 9:12 AM CDT SUITE PEF PRE 7.72 L/s 06/15/2020 [facility] 9:12 AM CDT SUITE FET PRE 7.95 sec 06/15/2020 [facility] 9:12 AM CDT SUITE DLCO 14.95 ml/(min*mm 06/15/2020 [facility] Hg) 9:12 AM CDT SUITE DLCOc 17.52 ml/(min*mm 06/15/2020 [facility] Hg) 9:12 AM CDT SUITE HB 10.30 g(Hb)/dL 06/15/2020 [facility] 9:12 AM CDT SUITE VA 7.30 L 06/15/2020 [facility] 9:12 AM CDT SUITE [id number] 98.00 % 06/15/2020 [facility] 9:12 AM CDT SUITE PulseRest 42.00 1/min 06/15/2020 [facility] 9:12 AM CDT SUITE [id number] 97.00 % 06/15/2020 [facility] 9:12 AM CDT SUITE PulseExer 61.00 1/min 06/15/2020 [facility] 9:12 AM CDT SUITE EXER TIME 1.30 min 06/15/2020 [facility] 9:12 AM CDT SUITE STEP HEIGHT 9.00 Inch 06/15/2020 [facility] PRE 9:12 AM CDT SUITE % PRED VC MAX 103.74 % 06/15/2020 [facility] 9:12 AM CDT SUITE FVC% 103.74 % 06/15/2020 [facility] 9:12 AM CDT SUITE FEV1% 99.73 % 06/15/2020 [facility] 9:12 AM CDT SUITE % PRED 95.24 % 06/15/2020 [facility] FEV1/FVC 9:12 AM CDT SUITE % PRED FEF 97.12 % 06/15/2020 [facility] 25-75% 9:12 AM CDT SUITE % PRED PEF 86.66 % 06/15/2020 [facility] 9:12 AM CDT SUITE PRED VC MAX 4.50 L 06/15/2020 [facility] 9:12 AM CDT SUITE PRED FVC 4.50 L 06/15/2020 [facility] 9:12 AM CDT SUITE PRED FEV 1 3.32 L 06/15/2020 [facility] 9:12 AM CDT SUITE PRED FEV1/FVC 74.44 % 06/15/2020 [facility] 9:12 AM CDT SUITE PRED FEF 2.33 L/s 06/15/2020 [facility] 25-75% 9:12 AM CDT SUITE PRED PEF 8.91 L/s 06/15/2020 [facility] 9:12 AM CDT SUITE Specimen (Source) Anatomical Collection Method Collection Time Re ceived Time Location / / Volume Laterality 06/14/2020 1:25 PM CDT Narrative This result has an attachment that is no t available. Shayla Alford D.O. PFT ORDERABLES Performing Organization Address City/State/ZIP Code Phon e Number [facility] NA (ABNORMAL) CBC with Differential, Blood (05/16/2020 1:51 PM CDT) [facility] gist Method Time Signature Hemoglobin 10.2 (L) [...] e Number [facility]- [address], [place] [address] [place] [address] System in [place] [address] [facility] (ABNORMAL) Basic Metabolic Panel (05/16/2020 1:51 PM [...] eGFR-Black/Afri 34 (L) >=60 05/16/2020 [facility] can [place] mL/min/BSA 3:37 PM CDT Comment: ----ADDITIONAL INFORMATION---- Estimated GFR calculated using the 2009 CKD_EPI creatinine equation. eGFR Non-Black/ 29 (L) >=60 mL/min/BSA 05/16/2020 3:37 PM CDT [facility] [place] Comment: ----ADDITIONAL INFORMATION---- Estimated GFR calculated using [...] [facility]- [address] [place] [address] [place] [address] System in [place] [address] Chest without IV Contrast (05/16/2020 1:34 [...] documented in this encounter Visit Diagnoses Diagnosis Dyspnea Multifactorial - Primary Asthma Extrinsic Moderate (HCC) Chronic Systolic (Congestive) Heart Fail ure (HCC) Effusion Pleural Anemia Effusion Pleural documented in this encounter Additional Health Concerns Assessment Noted Time PHQ-9 Depression Total Score: 18 04/28/2018 11:27 AM C DT documented as of this encounter Care Teams Sports Management Internship Relationship Specialty Start Date End Date Chris Billings M.B.B.S., M.D. PCP - General Family Medicine 01/10/20 05/21/20 [facility] [address] [place] [phone] documented as of this encounter
--- OUTSIDE RECORDS SUMMARY | 2022-05-21 11:27 | XMS_ITS | Encounter Summary ---
:1945 Author Organization [facility] Address [address] [place] [id number] Care Team Providers Name Role Phone Chris Billings M.D. Primary Care Provider [phone] Reason for Visit Reason Comments Fatigue Auth/Cert Specialty Diagnoses / Procedures Referred By Contact Refer red To Contact Diagnoses Arrhythmia Ventricular Failure Heart (HCC) Failure Renal Acute (Acute Kidney Injury) (HCC) Procedures I49.9 (ICD-10-CM) - Arrhythmia Ventricular Referral ID Status Reason Start Date Expiration Date Visits Requ ested Visits Authorized [id number] 1 1 Encounter Details Date Type Department Care Team Description 05/03/2020 - Hospital Encounter [facility] Brandon Ellsworth D.O. [address] [place] [phone] Failure Heart (HCC) (Primary Dx); 05/06/2020 [facility] Michael J, M.D. [address] [place] [phone] Arrhythmia Ventricular; [facility] Roselia Mark M.D. [address] [place] [id number] Failure Renal Acute (Acute Kidney Injury ) (HCC) [facility], Tenth Floor [address] [place] [phone] Social History Tobacco Use Types Packs/Day Years [...] do you attend protestant or Never 2021 muslim services? 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 Sex Assigned at Date Recorded Male 05/21/2018 2:34 PM CDT documented as of this encounter Last Filed Vital Signs Vital Sign Reading Time Taken Comments Blood Pressure 127/78 05/06/2020 3:00 PM CDT Pulse 54 05/06/2020 7:30 AM CDT Temperature 36.3 ??C (97.3 ??F) 05/06/2020 4:00 PM CDT Respiratory Rate 20 05/06/2020 3:00 PM CDT Oxygen Saturation 93% 05/06/2020 7:30 AM CDT Inhaled Oxygen Concentration - - Weight 101 kg (222 lb 7.1 oz) 05/05/2020 12:45 PM CDT Height 188 cm (6' 2.02) 05/03/2020 7:25 PM CDT Body Mass Index 28.55 05/03/2020 7:25 PM CDT documented in this encounter Discharge Summaries Farhan Duran P.A.-C., M.S. - 05/06/2020 1:52 PM CDT CARDIOLOGY HOSPITAL DISCHARGE SUMMARY DATE OF ADMISSION: 05/03/2020 DATE OF DISCHARGE: 05/06/2020 Discharge Provider: Roselia Mark M.D. Discharge Provider Team: [facility] PRINCIPAL DIAGNOSIS Acute On Chronic Systolic (Congestive) Heart Failure (HCC) DISMISSAL DIAGNOSES 1. Acute on chronic heart failure with reduced EF 2. Frequent PVC 3. Acute on chronic kidney disease 4. Type 2 diabetes mellitus 5. Hypertension 6. Hyperlipidemia 7. Mild coronary artery disease by CTA 01/27/2020 8. Asthma/COPD 9. Insomnia 10. Chronic anemia 11. History of stroke/TIA RECOMMENDATIONS FOR FOLLOW-UP APPOINTMENTS -Follow up with primary care provider within 7-10 days. -Check CBC, CMP and magnesium at follow up with primary care. -Further evaluate anemia, currently stable. -Consider nephrology referral if renal function does not improve after stoping losartan and metformin. -Continue adjusting diabetic regimen as needed. -Follow up with heart failure clinic in 2-4 weeks. Will need repeat echo in a few months. Amiodarone Therapy Initiated: *Baseline: Eye exam, PFT, chest x-ray, thyroid and liver function studies needed. *Every three months for the first year: Liver, thyroid function studies and a chest x-ray. *Then every 6 months: Liver, thyroid functions studies, eye exam, and chest x-ray. *PFTs needed annually. Any visual disturbances should be promptly examined by an advertising dispatch clerks supervisor. The dose should be reduced or discontinued in patients with persistent hepatic enzyme levels of 3times the upper limit of normal values. FOLLOW-UP APPOINTMENTS Scheduled Appointments 05/09/2020 10:30 AM LAB [address] [place] [address] Laboratory Medicine 05/11/2020 10:00 AM Rusty Da Silva M.D. Family Medicine 05/18/2020 8:10 AM LAB 01 [facility] Laboratory Medicine 05/25/2020 8:15 AM Prasanna Bernal M.D.; OW 01 [facility] Urology For appointment details refer to your Patient Appointment Guide. HOSPITAL COURSE Admission Weight: 102 kg Dismissal Weight: 101 kg BMI: Body mass index is 28.55 kg/m??. Mr. Costa is a 74-year-old man admitted for management of acute on chronic heart failure and ventricular premature beats. He has medical comorbidities including, but not limited to: asthma, COPD, mildCAD, diabetes mellitus type 2 on insulin and oral medications, acute on chronic kidney disease, diver ticulosis, hypercholesterolemia, hypertension, chronic pancreatitis, malignant neoplasm of bladder s/p bladder surgery, skin cancer, stroke, and TIAs. He has had a 5-6 month progressive reduction in functional capacity with shortness of breath. He hasalso noted increasing weight, edema, abdominal girth and intermittent lightheadedness. Stress echo in November 2019 noted EF 45% and was positive for anterior ischemia. He was seen by cardiology in the clinic in December 2019. CT cardiac angiogram showed triple-vessel disease but with only up to mild stenosis of proximal D2, CAD-RADS was only 2. FFRct performed showed mild stenosis in proximal D2 had low likelihood of significant flow limitation. He was treated medically. 04/28-04/30 he was admitted and treated at an outside hospital for congestive heart failure with diuresis. He was seen in cardiology clinic 05/01 and found to be in acute on chronic heart failure. He was started on lasix 20 mg daily. Holter prior to admission noted PVC burden of 33%. Plan was to consider coronary angiogram if dyspnea did not improve with diuresis and control of heart failure. He presented tot ED on 05/03 for ongoing dyspnea, fatigue and weight gain and was admitted. Upon admission he was given intravenous Lasix bolus and initiated on continuous infusion. Transitioned to oral lasix at 40 mg once daily prior to dismissal. He was also initiated on hydralazine for afterload reduction. He was noted to have an acute kidney injury and his losartan was discontinued and metformin held. Creatinine samuel slightly but stabilized around 2.2. Continued on metoprolol, atorvastatin, Imdur and Plavix. Amiodarone 400 mg TID was initiated for antiarrhythmic therapy. On dismissal amiodarone was reduced to 400 mg once daily for 1 month and then reduce to 200 mg once daily. LFT minimally abnormal likely related more to recent volume overload, willbe followed in outpatient setting. Diabetes consult service followed and managed diabetic medications. They adjust his home insulin anddiscontinued his metformin due to renal dysfunction. Hemoglobin remained stable, no signs of bleeding, no blood noted in urine or stool. Will need to be continue to be followed by primary care provider. DISCHARGE DISPOSITION: Home or Self Care [1] CONDITION ON DISCHARGE: Stable. DIET AT DISCHARGE: Cardiovascular diet, 2 g sodium, 2 L fluid restriction PRIMARY PROVIDER No care production team member to display Primary Care Providers: Chris Billings M.B.B.S., M.D. (General) [address] [place] [phone] Primary Care Provider Primary Care Provider MARGIN CODE I personally spent total time of 40 minutes with >50% spent with counseling/coordination of care,independent from other providers on our team. documented in this encounter Discharge Instructions Discharge InstructionsVarsha Crocker APRN C.NMauroP. - 05/06/2020 1:44 PM CDT BLOOD GLUCOSE MANAGEMENT: Monitor blood glucose four times daily before meals and at bedtime. Blood glucose goal is 120-180 mg/dL . Higher goal due to age and renal function. Most recent A1c on record: Lab Results Component Value Date HGBA1C 10.3 (H) 04/12/2020 See medication list for updated diabetes medications; insulin doses may need additional adjustment post hospitalization. Follow-up with primary care provider within 7-10 days of discharge or earlier if blood glucose values are consistently out of goal range. As Diabetes and Nutritional Education is important to your diabetes management, yearly follow up with a local Canopy Inspector and Dietitian is recommended. Please check with your insurance company asdiabetes education visits are commonly covered. Your primary care provider can provide referrals foreducation. AttachmentsThe following attachments cannot be sent through Care Everywhere. Amiodarone (By mouth) (Sudanese)Hydralazine (By mouth) (Sudanese)documented in this encounter Medications at Time of Discharge Medication Sig Dispensed Refills Start Date End Date atorvastatin Take 80 mg by mouth 0 (for_LIPITOR) 80 mg daily. tablet cholecalciferol, vitamin Take 1,000 Units by 0 D3, 25 mcg (1,000 Unit) mouth daily. tablet clopidogreL (PLAVIX) 75 Take 1 tablet by 0 2015 mg tablet mouth daily. escitalopram (LEXAPRO) Take 1 tablet (10 mg 30 tablet 11 10 mg tablet total) by mouth daily. blood sugar diagnostic Reports checking 4-5 0 strips times daily. PEN NEEDLE, DIABETIC Yani Fine 30 0 MISC disposable needles. For use with Insulin Pens, 4 times daily SYRINGE-NEEDLE,INSULIN,0 0 .5 ML (INSULIN SYRINGE MISC) isosorbide mononitrate Take 1 tablet (60 mg 0 11/201902/22/2021 (IMDUR) 60 mg 24 hr total) by mouth tabletIndications: daily. Atherosclerotic Heart Disease [place] Coronary Artery With Other Forms Angina Pectoris (Angina Equivalent) ([facility]), Diabetes Mellitus Type 2 ([facility]), Hypertension Essential Primary ccslql-fnexoagg-uopvnhj 2 capsules 3 (three) 0 10/12/2020 (CREON) times a day with 6,000-19,000-30,000 Unit meals. As directed per capsule metoprolol succinate Take 1 tablet (50 mg 90 tablet 3 05/0102/13/2021 (TOPROL-XL) 50 mg 24 hr total) by mouth tablet daily. Do not crush or chew. albuterol (for_ACCUNEB) Take 2.5 mg by 0 [...] under unit/mL injection the skin at bedtime. nbwirx-agkawsax-mvxlyeo Take 1 capsule by 0 10/12/2020 (CREON) mouth as needed for 6,000-19,000-30,[address] capsule lisinopriL Take 1 tablet by 0 11/15/2008 11/06/19 22 (PRINIVIL,ZESTRIL) 10 mg mouth daily. tablet metFORMIN (GLUMETZA) Take 1 tablet by 0 9 11/07/2021 1,000 mg 24 hr tablet mouth daily. traZODone (DESYREL) 100 Take 1 tablet (100 mg 30 tablet 1 0 05/06/2020 02/22/2021 mg tablet total) by mouth at bedtime as needed for sleep. documented as of this encounter Progress Notes Roselia Mark M.D. - 05/06/2020 2:12 PM CDT SUBJECTIVE I met Mr. Costa this morning. The patient had good diuresis from yesterday's intravenous Lasix, andhe had 3 L negative. He has much improved shortness of breath since admission. With amiodarone on board, the PVC has been significantly suppressed. He has rare PVCs. A 24 Holter was collected for report next week. OBJECTIVE PHYSICAL EXAMINATION General: Elderly gentleman. Appeared to be comfortable. Vessels : Jugular venous pressure is normal. Lungs: Clear to auscultation and percussion. Heart: PMI is normal. Rhythm is regular. I do not appreciate heart murmur. Abdomen : Soft. Extremities: With 1+ edema bilateral ankles. ASSESSMENT / PLAN #1 Ventricular premature contractions, significantly suppressed by amiodarone #2 Nonischemic cardiomyopathy with mild reduced LV systolic function and possible diastolic dysfunction Mr. Costa has significant improved symptoms from heart failure. He has only mild to moderately reduced ejection fraction, and he certainly has a component of diastolic dysfunction. With diuresis we have reduced 5 L. We will provide him higher dose Lasix at 40 mg once a day as outpatient. The patient has not set up a primary physician for his long-term care. He mentioned the difficulty to identifying a primary physician at [facility]. We will try to help him to establish a primary provider for his care. He will need a followup in next week to check his electrolytes and creatinine level. I noted that he his creatinine level has been slowly going up over the years. His lower extremity edema has been improved by the diuresis. I also recommend patient to be seen when schedule is available in our Heart Failure Clinic for long-term guidance. He is also has creatinine level isat 2, not a good candidate for NAVNEET inhibitor or ARB. We have initiated vessel dilators with Imdur and hydralazine. He is on metoprolol. Junior Banerjee L.I.C.S.W., M.S.W. - 05/06/2020 9:33 AM CDT SUBJECTIVE Social work received a referral for suicide risk. Social work attempted to meet with patient; however, patient was on the phone and declined to meet with social work at this time. OBJECTIVE Patient sitting on the bedside chair on the phone. ASSESSMENT / PLAN ASSESSMENT Unable to complete assessment at this time as patient was on the phone when social work presented. PLAN Social work will attempt to follow up with patient at a later time. Minesh Leo M.S.WMauro 05/06/2020 Cassie Eastman L.I.C.S.W., M.S.W. - 05/05/2020 1:53 PM CDT SUBJECTIVE Social work referral received due to suicide risk. Social wok attempted to meet with patient to complete psychosocial assessment, offer supportive counseling and appropriate resources. OBJECTIVE Not applicable ASSESSMENT / PLAN ASSESSMENT Unable to complete assessment at this time as patient was being seen by another provider when socialwork presented. PLAN Social work will attempt to follow up with patient at a later time. Minesh Mena, M.S.W. 05/05/2020 ETT Roselia Mark M.D. - 05/05/2020 12:39 PM CDT I met Mr. Costa in his room this morning. I agree with nurse practitioner Marce Sy's detailed progress note dated today. The patient is a 74-year-old gentleman who was admitted on May 03 for heart failure and PVCs. Hewas apparently fluid overloaded with lower extremity edema and elevated jugular venous pressure. He also has PVC burden 73%. He is asymptomatic with PVC. However, he may have PVC-mediated cardiomyopathy with an EF of 42%. The patient started having amiodarone loading at 400 mg 3 times a day. The PVC burden has been reduced. On telemetry this morning, I only see 1 PVC during my visit with the patient. He received Lasix 80 mg IV bolus yesterday, and he did have reasonable diuresis. OBJECTIVE PHYSICAL EXAMINATION The patient still has lower extremity edema and elevated JVP. 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 We will do a 24- hour Holter to reassess the PVC burden. In the meantime, we will continue to diurese him with intravenous Lasix at 10 mg per hour. The chest x-ray also showed a small pleural effusion. I have discussed with him to reduce his salt intake. Shiela Kingsley APRN, C.N.P., D.N.P. - 05/05/2020 10:06 AM CDT Video Visit Performed SUBJECTIVE LOS: 2 days DCS continues to follow this 74 y.o. year-old male for diabetes admitted on 05/03/2020 for congestive heart failure. Preadmission therapy: Lantus 20 units at bedtime NovoLog 20-25 units Metformin 1000 mg twice daily (stopped by PCP a few days ago d/t kidney function) Patients chart and laboratory results were reviewed. As a precautionary measure we are limiting rounding at this time. Video visit was performed. Patient is in no acute distress. Resting in bed. Reviewed hospital insulin regimen. Reviewed dismissal plan. Patient had a blood glucose of 69 mg/dL overnight. Reports he did not have any symptoms and did not get any treatment. Reports usually at home he would have symptoms of hypolgycemia with a blood glucose of 69 mg/dL. Blood glucose results in last 24 hours: Recent Labs 05/05/20 0805 05/05/20 0421 05/04/20 2043 05/04/20 1649 05/04/20 1607 05/04/20 1145 GLUCOSE 152 H 69 L 156 H 79 78 134 Yesterday, given: Lantus 20 units at bedtime , NovoLog 1 unit for every 15 grams of carbohydrates consumed with meals (6-7-4 units with respective meals) and NovoLog 4 units total for the correction of hyperglycemia. Steroids: None Current Diet Carbohydrate count guidelines starting at 05/04 0816 Adult Diet Regular; 2,000 mg Na; 60 gm Carbs (per meal); 2000 mL Fluid; Cardiovascular starting at 05/03 1733 Vitals Temperature: 36.4 ??C Heart Rate: 58 Resp Rate: 27 Blood Pressure: 121/85 BP Location: Right arm;Upper SpO2: 94 % BMI (Calculated): 28.7 kg/m?? Height: 188 cm Weight: 102 kg Body mass index is 28.75 kg/m??. Labs: Lab Results Component Value Date CREATININE 2.01 (H) 05/05/2020 Estimated Creatinine Clearance: 45.1 mL/min (A) (by C-G formula based on SCr of 2.01 mg/dL (H)). ASSESSMENT / PLAN #1 Diabetes mellitus, type 2, uncontrolled with hyperglycemia A1c 10.3% #2 Coronary Artery Disease PLAN - Blood glucose monitoring: four times daily - Glucose goal: 140-180 mg/dL - Basal: Lantus 14 units at bedtime. Reduced dose due to tight blood glucose overnight last night - Mealtime: NovoLog 1 unit for every 15 grams of carbohydrates consumed with meals. - Correction scale: NovoLog moderate correction scale three times a day - DCS will evaluate and adjust insulin doses as indicated to achieve glycemic goal. Anticipated Dismissal Plan Preadmission Lantus and NovoLog with dose adjustment. Will continue to assess appropriate doses. Will continue to assess kidney function for Metformin, at this time, patient could resume his Metformin but at a reduced dose. Will continue to assess. Please page DCS within 24 hours prior to hospital dismissal. Consult conducted via real-time audio/video technology by Shiela Kingsley APRN, C.N.P., D.N.P. in provider's residence to the patient in [facility]. Plan was discussed with the patient. DCS Pager [phone] will continue to follow. Call primary service for diabetes concerns between 1830 -0630. Primary service to contact DCS via hospital boiler plant operator for questions. Marce Sy APRN, C.N.P. - 05/05/2020 8:15 AM CDT CARDIOLOGY INPATIENT PROGRESS NOTE SUBJECTIVE Mr. Costa had an uneventful night. He was able to sleep last night, received trazodone 100 mg and Ambien 5 mg. States that his breathing is better. Denies chest pain and palpitations. TELEMETRY Sinus rhythm with occasional PVCs. VITAL SIGNS Blood pressure 121/72, heart rate 52, respiration 16, temperature 36.4??, O2 sats 94% on room air. INTAKE/OUTPUT Past 24 hours: Intake/Output Summary (Last 24 hours) at 05/05/2020 08 Last data filed at 05/05/2020 0500 Gross per 24 hour Intake 1590 ml Output 1470 ml Net 120 ml PHYSICAL EXAMINATION General: Awake, alert and in no apparent distress. Sitting up in a chair. Lungs: Diminished lung sounds to right lower lobe. Remainder clear, without wheezes or rhonchi. Heart: Normal S1-S2. Regular rate and rhythm. No murmurs appreciated. JVP elevated-mid neck at 90??. Vessels: Pedal pulses 2+ bilaterally. Abdomen: Soft and nontender. Normoactive bowel sounds. Extremities: +2 bilateral lower extremity pitting edema. Musculoskeletal: Normal gait. Psychiatric: Appropriate mood and affect. LABORATORY Recent Results (from the past 24 hour(s)) CBC without Differential Collection Time: 05/05/20 4:21 AM Result Value Hemoglobin 9.2 (L) Hematocrit 28.7 (L) Erythrocytes 3.17 (L) MCV 90.5 RBC Distrib Width 14.6 (H) Platelet Count 208 Leukocytes 6.2 Basic Metabolic Panel Collection Time: 05/05/20 4:21 AM Result Value Potassium, S 3.9 Sodium, S 141 Chloride, S 104 Bicarbonate, S 22 Anion Gap 15 Bld Urea Nitrog(BUN), S 52 (H) Creatinine, S 2.01 (H) eGFR-Non Black 31 (L) eGFR-Black 36 (L) Calcium, Total, S 8.9 Glucose, S 69 (L) Glucose, POCT Collection Time: 05/05/20 8:05 AM Result Value Glucose, POCT, B 152 (H) Site Capillary Last Intake 3-4 hours ASSESSMENT / PLAN #1 Increased Ventricular Ectopy [place] #2 Acute on Chronic Left Ventricular Systolic Heart Failure, EF 42% #3 Type 2 Diabetes Mellitus, Uncontrolled, Hgb A1c 10.3% (04/12/20) #4 Acute on Chronic Kidney Disease, Stage 3 #5 Mild Coronary Artery Disease by CTA, 01/27/20 #6 Hypertension Essential Primary #7 Chronic Microcytic Anemia #8 History of Stroke/TIA (HCC) #9 Hyperlipidemia #10 Insomnia #11 Asthma/COPD PLAN: 1. Administer intravenous Lasix 80 mg x1 dose and initiate drip at 10 mg/hour. 2. Continue metoprolol succinate 50 mg daily and Imdur 60 mg daily. Losartan on hold due to renal function. Initiate hydralazine 25 mg q.8 hours. 3. Recheck electrolytes this afternoon. 4. Continue amiodarone loading, 400 mg 3 times a day, initiated 05/03/20. 5. Continue Plavix 75 mg daily, atorvastatin 80 mg daily and other medications as ordered. 6. DCS following to assist with management of his blood glucose. 7. Continue trazodone 100 mg at HS and Ambien as needed for sleep. 8. Place a 12-lead Holter monitor, monitor PVC burden. DVT PROPHYLAXIS: Subcutaneous heparin. GI PROPHYLAXIS: No current indication. DISPOSITION: Home to self-care. Marce Sy APRN, C.N.P. 05/05/20 Dhiraj Michelle M.D. - 05/04/2020 12:31 PM CDT The patient was seen examined and management plans were discussed. The history, exam, plan of care been reviewed with Marce Sy CNP and I agree with which she has recorded in her note of 05/04/2020. The patient indicates that he feels improved since hospital admission. In response to Lasix he has had a diuresis of approximately 1.5 L. He is less short of breath as a result. It would appear that his ventricular ectopy is much less frequent than on admission. However, we have only begun the process of amiodarone loading. Examination: He is alert and oriented to person place and time with normal mood and affect. His carotid upstroke is normal. Jugular venous pressure is still elevated. He has scattered rales. Grade 2/6 apical systolic murmur. He is much less peripheral edema currently than on admission. His major concern is sleep. He has been unable to sleep for the last 3 or 4 days. He indicates that he has always had difficulty sleeping in-hospital. He indicates that he has taken trazodone in very large doses in the past in order to sleep. He is quite angry about this which seems disproportionate to the severity of the problem. We have indicated to him that we will make every effort to assist him in getting appropriate sleep in-hospital. We will give another dose of intravenous Lasix today. If he continues to diurese we may wish to consider switching to oral torsemide. He is also being treated with Imdur and metoprolol. We have not initiated vasodilators therapy given his acute kidney injury. In response to diuresis his renal function is improving. I do believe this is cardiorenal and I would anticipate normalization over the next day or two. He is tolerating amiodarone without difficulty and the loading could be accomplished as an outpatient. Consequently, he could be ready for dismissal in the next day or two. Marce Sy APRN, C.N.P. - 05/04/2020 8:20 AM CDT CARDIOLOGY INPATIENT PROGRESS NOTE SUBJECTIVE I met and examined Mr. Costa. He verbalized that he did not sleep well at all. I haven't slept in the past 5 days. States that his breathing is better. Denies chest pain and palpitations. TELEMETRY Sinus rhythm with occasional PVCs. VITAL SIGNS Blood pressure 131/58, heart rate 62, respiration 18, temperature 36.4??, O2 sats 95% on room air. INTAKE/OUTPUT Past 24 hours: Intake/Output Summary (Last 24 hours) at 05/04/2020 0842 Last data filed at 05/04/2020 0840 Gross per 24 hour Intake 700 ml Output 3100 ml Net -2400 ml PHYSICAL EXAMINATION General: Awake, alert and in no apparent distress. Sitting up in a chair. Lungs: Diminished lung sounds to right lower lobe. Remainder clear, without wheezes or rhonchi. Heart: Normal S1-S2. Regular rate and rhythm. No murmurs appreciated. JVP elevated. Vessels: Pedal pulses 2+ bilaterally. Abdomen: Soft and nontender. Normoactive bowel sounds. Extremities: +2 bilateral lower extremity pitting edema. Musculoskeletal: Normal gait. Psychiatric: Appropriate mood and affect. LABORATORY Recent Results (from the past 24 hour(s)) CBC without Differential Collection Time: 05/03/20 1:44 PM Result Value Hemoglobin 10.0 (L) Hematocrit 30.5 (L) Erythrocytes 3.36 (L) MCV 90.8 RBC Distrib Width 14.5 Platelet Count 225 Leukocytes 7.0 Basic Metabolic Panel Collection Time: 05/03/20 1:44 PM Result Value Potassium, P 5.1 Sodium, P 142 Chloride, P 107 Bicarbonate, P 22 Anion Gap, P 13 BUN, P 52 (H) Creatinine, P 1.90 (H) eGFR Black 39 (L) eGFR Non-Black 33 (L) Calcium, Total, P 8.9 Glucose, P 280 (H) Troponin T, Baseline, 5th gen Collection Time: 05/03/20 1:44 PM Result Value Troponin T, Baseline, 5th gen 114 (H) NT-Pro B-Type Natriuretic Peptide (BNP) Collection Time: 05/03/20 1:44 PM Result Value NT-Pro BNP, P 4532 (H) Magnesium Collection Time: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 Results for AM CDT this procedure are in the results section. MICROSCOPIC Routine 05/05/2020 11:21 Results for AUTOMATED AM CDT this procedure are in the results section. CREATININE, RANDOM, Routine 05/05/2020 11:21 Resu lts for U AM CDT this procedure are in the results section. URINALYSIS WITH Routine 05/05/2020 11:21 Results for MICROSCOPIC AM CDT this procedure are in the results section. ECG MONITOR RECORD 05/05/2020 9:24 Result s for AM CDT this procedure are in the results section. DX CHEST PORTABLE 1 RAD - Routine 05/05/2020 8:39 Resu lts for VIEW (most inpatients AM CDT this proced ure and all are in the outpatients) results section. GLUCOSE POCT, B Routine 05/05/2020 8:05 Results f or AM CDT this procedure are in the results section. CBC WITHOUT Routine 05/05/2020 4:21 Results for DIFFERENTIAL, B AM CDT this procedu re are in the results section. BASIC METABOLIC Routine 05/05/2020 4:21 Results f or PANEL, S/P AM CDT this procedure are in the results section. GLUCOSE POCT, B Routine 05/04/2020 8:43 Results f or PM CDT this procedure are in the results section. GLUCOSE POCT, B Routine 05/04/2020 4:49 Results f or PM CDT this procedure are in the results section. BASIC METABOLIC Timed 05/04/2020 4:07 Results f or PANEL, S/P PM CDT this procedure are in the results section. MAGNESIUM, S Timed 05/04/2020 11:46 Results for AM CDT this procedure are in the results section. GLUCOSE POCT, B Routine 05/04/2020 11:45 Results for AM CDT this procedure are in the results section. ADULT OXYGEN THERAPY Routine 05/04/2020 8:01 AM CDT GLUCOSE POCT, B Routine 05/04/2020 7:59 Results f or AM CDT this procedure are in the results section. PROTHROMBIN TIME Routine 05/04/2020 4:20 Results for (PT), P AM CDT this procedure are in the results section. CBC WITHOUT Routine 05/04/2020 4:20 Results for DIFFERENTIAL, B AM CDT this procedu re are in the results section. TROPONIN T, 5TH GEN, Routine 05/04/2020 4:20 Resu lts for P AM CDT this procedure are in the results section. MAGNESIUM, S Routine 05/04/2020 4:20 Results for AM CDT this procedure are in the results section. COMPREHENSIVE Routine 05/04/2020 4:20 Results for METABOLIC PANEL, S/P AM CDT this pr ocedure are in the results section. GLUCOSE POCT, B Routine 05/03/2020 10:22 Results for PM CDT this procedure are in the results section. SARS-COV-2 IGG AB, Routine 05/03/2020 8:03 Result s for SERUM PM CDT this procedure are in the results section. ADULT OXYGEN THERAPY Routine 05/03/2020 8:01 PM CDT SARS CORONAVIRUS-2 Routine 05/03/2020 7:12 Result s for RNA, V PM CDT this procedure are in the results section. GLUCOSE POCT, B Routine 05/03/2020 5:55 Results f or PM CDT this procedure are in the results section. ADULT OXYGEN THERAPY Routine 05/03/2020 5:37 PM CDT ADULT OXYGEN THERAPY Routine 05/03/2020 5:37 PM CDT ADULT OXYGEN THERAPY Routine 05/03/2020 5:37 PM CDT TROPONIN T, 2H/6H, Timed 05/03/2020 3:53 Result s for 5TH GEN, P PM CDT this procedure are in the results section. DX CHEST AP OR PA RAD - Semiurgent 05/03/2020 2:18 Res ults for AND LATERAL 2 VIEWS (Fast; most ED PM CDT this p rocedure patients; some are in the inpatients) results section. TROPONIN T, STAT 05/03/2020 1:44 Results for BASELINE, 5TH GEN, P PM CDT this pr ocedure are in the results section. NT-PRO B-TYPE STAT 05/03/2020 1:44 Results for NATRIURETIC PEPTIDE PM CDT this pro cedure (BNP), S are in the results section. CBC WITHOUT STAT 05/03/2020 1:44 Results for DIFFERENTIAL, B PM CDT this procedu re are in the results section. MAGNESIUM, S STAT 05/03/2020 1:44 Results for PM CDT this procedure are in the results section. BASIC METABOLIC STAT 05/03/2020 1:44 Results f or PANEL, S/P PM CDT this procedure are in the results section. ECG STAT 05/03/2020 1:34 Results for PM CDT this procedure are in the results section. documented in this encounter Results ECG 12 Lead (05/06/2020 1:05 PM CDT) P athologist Signature Ventricular Rate 53 BPM MUSE ECG/Min AR Interval 144 ms MUSE QRSD Interval 118 ms MUSE QT Interval 498 ms MUSE QTC Interval 467 ms MUSE P [place] 24 degrees MUSE R [place] 7 degrees MUSE T Wave [place] 87 degrees MUSE Specimen Anatomical Collection Method Collection Time Receive d Time (Source) Location / / Volume Laterality 05/06/2020 1:05 PM 0 1:08 CDT PM CDT Impressions MUSE - 05/06/2020 1:08 PM CDT Sinus bradycardia Nonspecific T wave abnormality When compared with ECG of 03-MAY-2020 13 :34, Premature ventricular complexes are no l onger present Reviewed by SEAN Meza Narrative This result has an attachment that is no t available. Procedure Note Brody Sorenson M.D. - 05/06/2020Formatt ing of this note might be different from the original. IMPRESSION: Sinus bradycardia Nonspecific T wave abnormality When compared with ECG of 03-MAY-2020 13 :34, Premature ventricular complexes are no l onger present Reviewed by SEAN Meza Farhan Duran P.A.-C., M.S. ECG ORDERABLES Performing Organization Address City/State/ZIP Code Phon e Number MUSE MUSE NA (ABNORMAL) Comprehensive Metabolic Panel (05/06/2020 4:21 AM CDT) [facility] Potassium, S 4.0 3.6 - 5.2 05/06/2020 DTL mmol/L 6:25 AM CDT Sodium, S 140 135 - 145 05/06/2020 DTL mmol/L 6:25 AM CDT Chloride, S 101 98 - 107 05/06/2020 DTL mmol/L 6:25 AM CDT Bicarbonate, S 24 22 - 29 05/06/2020 DTL mmol/L 6:25 AM CDT Anion Gap 15 7 - 15 05/06/2020 DTL 6:25 AM CDT BUN (Blood Urea 56 (H) 8 - 24 05/06/2020 DTL Nitrogen), S mg/dL 6:25 AM CDT Creatinine 2.23 (H) 0.74 - 05/06/2020 DTL 1.35 mg/dL 6:25 AM CDT eGFR-Non 28 (L) >=60 05/06/2020 DTL Black/ mL/min/BSA 6:25 AM CDT Nigerien Comment: ----ADDITIONAL INFORMATION---- Estimated GFR calculated using the 2009 CKD_EPI creatinine equation. eGFR-Black/ 32 (L) >=60 mL/min/BSA 2019 6:25 AM CDT DTL Comment: ----ADDITIONAL INFORMATION---- Estimated GFR calculated using the 2009 CKD_EPI creatinine equation. Calcium, Total, S 8.9 8.8 - 10.2 mg/dL 05/06/2020 6:25 AM CDT DTL Glucose, S 176 (H) 70 - 140 mg/dL 05/06/2020 6:25 AM CDT D TL Protein, Total, S 5.9 (L) 6.3 - 7.9 g/dL 05/06/2020 6:25 A M CDT DTL Albumin, S 3.6 3.5 - 5.0 g/dL 05/06/2020 6:25 AM CDT D TL Aspartate Aminotransferase 23 8 - 48 U/L 05/06/2020 6 :25 AM CDT DTL (AST), S Alkaline Phosphatase, S 159 (H) 40 - 129 U/L 05/06/2020 6: 25 AM CDT DTL Alanine Aminotransferase 58 (H) 7 - 55 U/L 05/06/2020 6:2 5 AM CDT DTL (ALT), S Bilirubin, Total, S 0.4 <=1.2 mg/dL 05/06/2020 6:25 AM CDT DTL Specimen Anatomical Collection Method Collection Time Receive d Time (Source) Location / / Volume Laterality Blood (Blood, 05/06/2020 4:21 AM 05/06/20 6:08 Venous) CDT AM CDT Brigette Khan APRNNKerry LAB BLOOD ADD-ON Performing Organization Address City/[facility]/ZIP [facility] Phon e Number [facility] - [address] [place], [place] [address] [facility] [place] [place] [address] [facility] [address] [facility] (ABNORMAL) Glucose, POCT (05/05/2020 10:08 PM CDT) Analysis Performed At Patho logist Time Signature Glucose, POCT, 216 (H) 70 - 140 05/05/2020 PCLX B mg/dL 11:15 PM CDT Site Capillary 05/05/2020 PCLX 11:15 PM CDT Last Intake 2-3 hours 05/05/2020 PCLX 11:15 PM CDT Specimen Anatomical Collection Method Collection Time Receive d Time (Source) Location / / Volume Laterality Blood 05/05/2020 10:08 05/05/2020 PM CDT 11:16 PM CDT Unknown Provider LAB POCT ORDERABLES-MANUAL Performing Organization Address City/[facility]/ZIP [facility] Phon e Number POC [facility] [address] [place] [address] PCLX [facility] [place] [address] [place] [facility] [address] [facility] (ABNORMAL) Glucose, POCT (05/05/2020 5:11 PM CDT) Analysis Performed At Patho logist Time Signature Glucose, POCT, 187 (H) 70 - 140 05/05/2020 PCLX B mg/dL 5:19 PM CDT Site Capillary 05/05/2020 PCLX 5:19 PM CDT Specimen Anatomical Collection Method Collection Time Receive d Time (Source) Location / / Volume Laterality Blood 05/05/2020 5:11 PM 0 5:19 CDT PM CDT Unknown Provider LAB POCT ORDERABLES-MANUAL Performing Organization Address City/State/ZIP Code Phon e Number POC [facility] [address] [place] [address] PCLX [facility] [place] [address] [place] [facility] [address] [facility] (ABNORMAL) Basic Metabolic Panel (05/05/2020 3:08 PM CDT) Analysis Performed At Patho logist Time Signature Potassium, S 4.7 3.6 - 5.2 05/05/2020 DTL mmol/L 4:56 PM CDT Sodium, S 138 135 - 145 05/05/2020 DTL mmol/L 4:56 PM CDT Chloride, S 102 98 - 107 05/05/2020 DTL mmol/L 4:56 PM CDT Bicarbonate, S 22 22 - 29 05/05/2020 DTL mmol/L 4:56 PM CDT Anion Gap 14 7 - 15 05/05/2020 DTL 4:56 PM CDT BUN (Blood Urea 52 (H) 8 - 24 05/05/2020 DTL Nitrogen), S mg/dL 4:56 PM CDT Creatinine 2.24 (H) 0.74 - 05/05/2020 DTL 1.35 mg/dL 4:56 PM CDT eGFR-Non 27 (L) >=60 05/05/2020 DTL Black/ mL/min/BSA 4:56 PM CDT Nigerien Comment: ----ADDITIONAL INFORMATION---- Estimated GFR calculated using the 2009 CKD_EPI creatinine equation. eGFR-Black/ 32 (L) >=60 mL/min/BSA 2019 4:56 PM CDT DTL Comment: ----ADDITIONAL INFORMATION---- Estimated GFR calculated using the 2009 CKD_EPI creatinine equation. Calcium, Total, S 9.0 8.8 - 10.2 mg/dL 05/05/2020 4:56 PM CDT DTL Glucose, S 235 (H) 70 - 140 mg/dL 05/05/2020 4:56 PM CDT D TL Specimen Anatomical Collection Method Collection Time Receive d Time (Source) Location / / Volume Laterality Blood (Blood, 05/05/2020 3:08 PM 05/05/20 20 3:42 Venous) CDT PM CDT Marce Ma APRN, C.N.P. LAB BLOOD ADD-ON Performing Organization Address City/[facility]/ZIP Code Phon e Number [facility] - [address] [place], [place] [address] [facility] [place] [place] [address] [facility] [address] [facility] HOLTER MONITOR - HOSPITAL JOB COUNSELOR - MONITORED IN HOSPITAL OR ED DISCHARGE (05/05/2020 1:39 PM CDT) [facility] gist Method Time Signature Recording Date HOLTER SENTINEL VT Runs 0 count HOLTER SENTINEL SVE Max Per HOLTER Hour Time SENTINEL Min Heart Rate 46 bpm HOLTER SENTINEL SVE Percent 2 percent HOLTER Beats SENTINEL VE Max Per 421 count HOLTER Hour SENTINEL Min Heart Rate [id number] HOLTER Time SENTINEL Tachycardia 0 count HOLTER Runs SENTINEL VE Max Per [id number] HOLTER Hour Time SENTINEL Holter Pauses 0 count HOLTER SENTINEL AF Count 0 count HOLTER SENTINEL SVE Max Per 129 count HOLTER Hour SENTINEL VE Percent 2 percent HOLTER Beats SENTINEL Analysis Date 20,200,810 HOLTER SENTINEL Bradycardia 0 count HOLTER Runs SENTINEL Max Heart Rate 71 bpm HOLTER SENTINEL Max Heart Rate [id number] HOLTER Time SENTINEL Mean Heart 56 bpm HOLTER Rate SENTINEL SVE Total 1,817 count HOLTER Beats SENTINEL SVT Runs 0 count HOLTER SENTINEL VE Total Beats 1,525 count HOLTER SENTINEL Specimen (Source) Anatomical Collection Method Collection Time Re ceived Time Location / / Volume Laterality 05/05/2020 1:28 PM CDT Narrative This result has an attachment that is no t available. Dat Perez M.D. CV CARDIAC SERVICES PROCEDUR ES Performing Organization Address City/State/ZIP Code Phon e Number HOLTER SENTINEL HOLTER SENTINEL NA (ABNORMAL) Glucose, POCT (05/05/2020 12:13 PM CDT) Analysis Performed At [facility] logist Time Signature Glucose, POCT, 204 (H) 70 - 140 05/05/2020 PCLX B mg/dL 12:17 PM CDT Site Capillary 05/05/2020 PCLX 12:17 PM CDT Last Intake 3-4 hours 05/05/2020 PCLX 12:17 PM CDT Specimen Anatomical Collection Method Collection Time Receive d Time (Source) Location / / Volume Laterality Blood 05/05/2020 12:13 05/05/2020 PM CDT 12:17 PM CDT Unknown Provider LAB POCT ORDERABLES-MANUAL Performing Organization Address City/State/ZIP Code Phon e Number [facility] [address] [place] [address] [place] [address] Formerly [facility] [address] Microscopic Automated (05/05/2020 11:21 AM CDT) P athologist Signature Microscopy Normal 05/05/2020 1:54 PATY PM CDT Specimen Anatomical Collection Method Collection Time Receive d Time (Source) Location / / Volume Laterality Urine 05/05/2020 11:21 05/05/2020 AM CDT 12:23 PM CDT Dat Perez M.D. LAB URINE ORDERABLES Performing Organization Address City/State/ZIP Code Phon e Number [facility] - [address] [place], [place] [address] [place] [address] [facility] [address] Creatinine, Random, Urine (05/05/2020 11:21 AM CDT) P athologist Signature Creatinine, 22 mg/dL 05/05/2020 PATY Random, U 1:17 PM CDT Comment: ----REFERENCE VALUE---- Used to normalize other values. Specimen Anatomical Collection Method Collection Time Receive d Time (Source) Location / / Volume Laterality Urine (Urine, 05/05/2020 11:21 05/05/2020 Clean Catch) AM CDT 12:23 PM CDT Dat Perez M.D. LAB URINE ORDERABLES Performing Organization Address City/State/ZIP Code Phon e Number [facility] - [address] [place], [place] [address] [place] [address] [facility] [address] Urea, Random, Urine (05/05/2020 11:21 AM CDT) Analysis Performed At Patho logist Time Signature Urea, Random, U 450 mg/dL 05/05/2020 APTY 1:17 PM CDT Creatinine 22 mg/dL 05/05/2020 PATY Concentration 1:17 PM CDT Urea/Creatinine 20.45 mg/mg 05/05/2020 PATY Ratio 1:17 PM CDT Comment: ----REFERENCE VALUE---- Interpret with other clinical data. Specimen Anatomical Collection Method Collection Time Receive d Time (Source) Location / / Volume Laterality Urine (Urine, 05/05/2020 11:21 05/05/2020 Clean Catch) AM CDT 12:23 PM CDT Dat Perez M.D. LAB URINE ORDERABLES Performing Organization Address City/State/ZIP Code Phon e Number [facility] - [address] [place], [place] [address] [facility] [place] [address] [facility] [address] (ABNORMAL) Urinalysis with Microscopic: Urine, Clean Catch (05/05/2020 11:21 AM CDT) [facility] Method Time Signature Source Midstream 05/05/2020 PATY 12:24 PM CDT Appearance Normal Normal 05/05/2020 PATY 1:17 PM CDT Osmolality, U 322 150 - 1150 05/05/2020 PATY mOsm/kg 1:35 PM CDT pH, U 5.6 4.5 - 8.0 05/05/2020 PATY 1:35 PM CDT Comment: ----ADDITIONAL INFORMATION---- This test was developed and its performa nce characteristics determined by [facility] in a manner co nsistent with CLIA requirements. This test has not bee n cleared or approved by the U.S. Food and Drug Admin istration. Glucose 6 0 - 15 mg/dL 05/05/2020 1:17 PM CDT PATY Protein, U 27 (H) <26 mg/dL 05/05/2020 1:17 PM CDT PATY Comment: ----ADDITIONAL INFORMATION---- On 03/25/2017 the total protein assay me thod changed resulting in approximately a 15% increase in prote in values. Protein/Osmolality 0.84 (H) <0.42 Ratio 05/05/2020 1:35 PM CDT PATY Comment: ----ADDITIONAL INFORMATION---- On 03/25/2017 the total protein assay me thod changed resulting in approximately a 15% increase in prote in values. Predicted 24 Hr Protein 796 mg/24 h 05/05/2020 1:35 PM CDT PATY Predicted Range 253-2508 mg/24 h 05/05/2020 1:35 PM CDT R CHANCE Hemoglobin, QL Negative Negative 05/05/2020 1:54 PM CDT RE NA Specimen Anatomical Collection Method Collection Time Receive d Time (Source) Location / / Volume Laterality Urine (Urine, 05/05/2020 11:21 05/05/2020 Clean Catch) AM CDT 12:23 PM CDT Dat Perez M.D. LAB URINE ORDERABLES Performing Organization Address City/State/ZIP Code Phon e Number [facility] - [address] [place], [place] [address] [facility] [place] [address] [facility] [address] ECG MONITOR RECORD (05/05/2020 9:24 AM CDT) Narrative 05/05/2020 9:24 AM CDT This result has an attachment that is no t available. Ordered by an unspecified provider. Default Authenticator Mir ECG ORDERABLES DX Chest Portable 1 View (05/05/2020 8:39 AM CDT) Anatomical Region Laterality Modality Chest, Thoracic RST LOS, Thoracic ARZ LOS, Thoracic N/A Digital Radiography FLA LOS Specimen (Source) Anatomical Collection Method Collection Time Re ceived Time Location / / Volume Laterality 05/05/2020 8:40 AM CDT Impressions 05/05/2020 8:44 AM CDT Since 05/03/2020, minimal increase in left pleural effusion. No other significant change. Patchy medial right lower lung consolidations. Rcffx-lb-[id number] right and small left p leural effusion. Cardiomegaly. Aortic calcifications. No acute osseous abnorma lities. Narrative 05/05/2020 8:44 AM CDT EXAM: ??DX CHEST PORTABLE 1 VIEW Procedure Note Suzanne Mahan M.D. - 05/05/2020Form atting of this note might be different from the original. EXAM: DX CHEST PORTABLE 1 VIEW IMPRESSION: Since 05/03/2020, minimal increase in le ft pleural effusion. No other significant change. Patchy medial right lower lung consolidations. Uibhb-fy-ihzmdfue right and small left p leural effusion. Cardiomegaly. Aortic calcifications. No acute osseous abnorma lities. Dat Perez M.D. IMG DIAGNOSTIC IMAGING PROCE DURES (ABNORMAL) Glucose, POCT (05/05/2020 8:05 AM CDT) Analysis Performed At [facility] Time Signature Glucose, POCT, 152 (H) 70 - 140 05/05/2020 PCLX B mg/dL 8:12 AM CDT Site Capillary 05/05/2020 PCLX 8:12 AM CDT Last Intake 3-4 hours 05/05/2020 PCLX 8:12 AM CDT Specimen Anatomical Collection Method Collection Time Receive d Time (Source) Location / / Volume Laterality Blood 05/05/2020 8:05 AM 0 8:12 CDT AM CDT Unknown Provider LAB POCT ORDERABLES-MANUAL Performing Organization Address City/State/ZIP Code Phon e Number POC [facility] [address] [place] [address] PCLX [facility] [place] [address] [place] [facility] [address] (ABNORMAL) Basic Metabolic Panel (05/05/2020 4:21 AM CDT) Analysis Performed At [facility] Signature Potassium, S 3.9 3.6 - 5.2 05/05/2020 DTL mmol/L 5:13 AM CDT Sodium, S 141 135 - 145 05/05/2020 DTL mmol/L 5:13 AM CDT Chloride, S 104 98 - 107 05/05/2020 DTL mmol/L 5:13 AM CDT Bicarbonate, S 22 22 - 29 05/05/2020 DTL mmol/L 5:13 AM CDT Anion Gap 15 7 - 15 05/05/2020 DTL 5:13 AM CDT BUN (Blood Urea 52 (H) 8 - 24 05/05/2020 DTL Nitrogen), S mg/dL 5:13 AM CDT Creatinine 2.01 (H) 0.74 - 05/05/2020 DTL 1.35 mg/dL 5:13 AM CDT eGFR-Non 31 (L) >=60 05/05/2020 DTL Black/ mL/min/BSA 5:13 AM CDT Nigerien Comment: ----ADDITIONAL INFORMATION---- Estimated GFR calculated using the 2009 CKD_EPI creatinine equation. eGFR-Black/ 36 (L) >=60 mL/min/BSA 2019 5:13 AM CDT DTL Comment: ----ADDITIONAL INFORMATION---- Estimated GFR calculated using the 2009 CKD_EPI creatinine equation. Calcium, Total, S 8.9 8.8 - 10.2 mg/dL 05/05/2020 5:13 AM CDT DTL Glucose, S 69 (L) 70 - 140 mg/dL 05/05/2020 5:13 AM CDT D TL Specimen Anatomical Collection Method Collection Time Receive d Time (Source) Location / / Volume Laterality Blood (Blood, 05/05/2020 4:21 AM 05/05/20 4:57 Venous) CDT AM CDT Brigette Khan APRNN.P. LAB BLOOD ADD-ON Performing Organization Address City/State/ZIP Code Phon e Number [facility] - [address] [place] [address] [facility] [place] [place] [address] [facility] [address] [facility] (ABNORMAL) CBC without Differential (05/05/2020 4:21 AM CDT) [facility] gist Method Time Signature Hemoglobin 9.2 (L) 13.2 - 05/05/2020 DTL 16.6 g/dL 4:53 AM CDT Hematocrit 28.7 (L) 38.3 - 05/05/2020 DTL 48.6 % 4:53 AM CDT Erythrocytes 3.17 (L) 4.35 - 05/05/2020 DTL 5.65 4:53 AM CDT x10(12)/L MCV 90.5 78.2 - 05/05/2020 DTL 97.9 fL 4:53 AM CDT RBC Distrib Width 14.6 (H) 11.8 - 05/05/2020 DTL 14.5 % 4:53 AM CDT Platelet Count 208 135 - 317 05/05/2020 DTL x10(9)/L 4:53 AM CDT Leukocytes 6.2 3.4 - 9.6 05/05/2020 DTL x10(9)/L 4:53 AM CDT Specimen Anatomical Collection Method Collection Time Receive d Time (Source) Location / / Volume Laterality Blood (Blood, 05/05/2020 4:21 AM 05/05/20 4:45 Venous) CDT AM CDT Marce Ma APRN, C.N.P. LAB BLOOD ADD-ON Performing Organization Address City/[facility]/ZIP Code Phon e Number [facility] - [address] [place], [place] [address] [address] [facility] (ABNORMAL) Glucose, POCT (05/04/2020 8:43 PM CDT) Analysis Performed At Path logis Time Signature Glucose, POCT, 156 (H) 70 - 140 05/04/2020 PCLX B mg/dL 8:49 PM CDT Site Capillary 05/04/2020 PCLX 8:49 PM CDT Last Intake 3-4 hours 05/04/2020 PCLX 8:49 PM CDT Specimen Anatomical Collection Method Collection Time Receive d Time (Source) Location / / Volume Laterality Blood 05/04/2020 8:43 PM 0 8:49 CDT PM CDT Unknown Provider LAB POCT ORDERABLES-MANUAL Performing Organization Address City/[facility] Phon e Number [facility] [address] [place] [id number] PCLX [address] POC [address] [facility] Glucose, POCT (05/04/2020 4:49 PM CDT) Analysis Performed At [facility] Signature Glucose, POCT, 79 70 - 140 05/04/2020 PCLX B mg/dL 4:58 PM CDT Site Capillary 05/04/2020 PCLX 4:58 PM CDT Last Intake > 4 hours 05/04/2020 PCLX 4:58 PM CDT Specimen Anatomical Collection Method Collection Time Receive d Time (Source) Location / / Volume Laterality Blood 05/04/2020 4:49 PM 0 4:58 CDT PM CDT Unknown Provider LAB POCT ORDERABLES-MANUAL Performing Organization Address City/[facility] Phon e Number POC [facility] [address] [place] [id number] PCLX [address] POC [address] [facility] (ABNORMAL) Basic Metabolic Panel (05/04/2020 4:07 PM CDT) Analysis Performed At [facility] logis Time Signature Potassium, S 4.5 3.6 - 5.2 05/04/2020 DTL mmol/L 5:03 PM CDT Sodium, S 141 135 - 145 05/04/2020 DTL mmol/L 5:03 PM CDT Chloride, S 104 98 - 107 05/04/2020 DTL mmol/L 5:03 PM CDT Bicarbonate, S 23 22 - 29 05/04/2020 DTL mmol/L 5:03 PM CDT Anion Gap 14 7 - 15 05/04/2020 DTL 5:03 PM CDT BUN (Blood Urea 53 (H) 8 - 24 05/04/2020 DTL Nitrogen), S mg/dL 5:03 PM CDT Creatinine 1.98 (H) 0.74 - 05/04/2020 DTL 1.35 mg/dL 5:03 PM CDT eGFR-Non 32 (L) >=60 05/04/2020 DTL Black/ mL/min/BSA 5:03 PM CDT Nigerien Comment: ----ADDITIONAL INFORMATION---- Estimated GFR calculated using the 2009 CKD_EPI creatinine equation. eGFR-Black/ 37 (L) >=60 mL/min/BSA 2019 5:03 PM CDT DTL Comment: ----ADDITIONAL INFORMATION---- Estimated GFR calculated using the 2009 CKD_EPI creatinine equation. Calcium, Total, S 9.3 8.8 - 10.2 mg/dL 05/04/2020 5:03 PM CDT DTL Glucose, S 78 70 - 140 mg/dL 05/04/2020 5:03 PM CDT D TL Specimen Anatomical Collection Method Collection Time Receive d Time (Source) Location / / Volume Laterality Blood (Blood, 05/04/2020 4:07 PM 05/04/20 20 4:35 Venous) CDT PM CDT Marce Ma APRN, C.N.P. LAB BLOOD ADD-ON Performing Organization Address City/State/ZIP Code Phon e Number [facility] - [address] [place] [address] [facility] [place] [place] [address] [facility] [address] (ABNORMAL) Magnesium (05/04/2020 11:46 AM CDT) P athologist Signature Magnesium, S 2.4 (H) 1.7 - 2.3 05/04/2020 DTL mg/dL 12:25 PM CDT Specimen Anatomical Collection Method Collection Time Receive d Time (Source) Location / / Volume Laterality Blood (Blood, 05/04/2020 11:46 05/04/2020 Venous) AM CDT 12:14 PM CDT Dat Perez M.D. LAB BLOOD ADD-ON Performing Organization Address City/[facility]/ZIP Code Phon e Number [facility] - [address] [place], [place] [address] [facility] [place] [address] [facility] [address] [facility] Glucose, POCT (05/04/2020 11:45 AM CDT) Analysis Performed At Patho logist Time Signature Glucose, POCT, 134 70 - 140 05/04/2020 PCLX B mg/dL 11:48 AM CDT Site Capillary 05/04/2020 PCLX 11:48 AM CDT Last Intake 2-3 hours 05/04/2020 PCLX 11:48 AM CDT Specimen Anatomical Collection Method Collection Time Receive d Time (Source) Location / / Volume Laterality Blood 05/04/2020 11:45 05/04/2020 AM CDT 11:48 AM CDT Unknown Provider LAB POCT ORDERABLES-MANUAL Performing Organization Address City/[facility] Phon e Number POC [facility] [address] [place] [id number] [address]CLX [address] POC [address] [facility] (ABNORMAL) Glucose, POCT (05/04/2020 7:59 AM CDT) P athologist Signature Glucose, POCT, 191 (H) 70 - 140 05/04/2020 PCLX B mg/dL 8:06 AM CDT Specimen Anatomical Collection Method Collection Time Receive d Time (Source) Location / / Volume Laterality Blood 05/04/2020 7:59 AM 0 8:07 CDT AM CDT Unknown Provider LAB POCT ORDERABLES-MANUAL Performing Organization Address City/[facility]/ZIP [facility] Phon e Number POC [facility] [address] [place] [address] P[address] (ABNORMAL) Prothrombin Time (PT) (05/04/2020 4:20 AM CDT) Patholo gist Method Time Signature Prothrombin 12.7 (H) 9.4 - 12.5 05/04/2020 DTL Time, P sec 5:27 AM CDT INR 1.2 0.9 - 1.1 05/04/2020 DTL 5:27 AM CDT Comment: ----ADDITIONAL INFORMATION---- Standard intensity warfarin therapeutic range: 2.0 to 3.0 ?? High intensity warfarin therapeutic rang e: 2.5 to 3.5 Specimen Anatomical Collection Method Collection Time Receive d Time (Source) Location / / Volume Laterality Blood (Blood, 05/04/2020 4:20 AM 05/04/20 20 5:09 Venous) CDT AM CDT Lulu Wilkins APRN, C.N.P. LAB BLOOD ADD-ON Performing Organization Address City/[facility] Phon e Number [facility] [address] [place] [address] Laboratories-[address] Magnesium (05/04/2020 4:20 AM CDT) P athologist Signature Magnesium, S 1.9 1.7 - 2.3 05/04/2020 DTL mg/dL 5:44 AM CDT Specimen Anatomical Collection Method Collection Time Receive d Time (Source) Location / / Volume Laterality Blood (Blood, 05/04/2020 4:20 AM 05/04/20 20 5:25 Venous) CDT AM CDT Lulu Wilkins APRN, C.N.P. LAB BLOOD ADD-ON Performing Organization Address City/[facility] Phon e Number [facility] - [address] (ABNORMAL) Comprehensive Metabolic Panel (05/04/2020 4:20 AM CDT) Analysis Performed At Patho logist Time Signature Potassium, S 4.6 3.6 - 5.2 05/04/2020 DTL mmol/L 5:44 AM CDT Sodium, S 139 135 - 145 05/04/2020 DTL mmol/L 5:44 AM CDT Chloride, S 105 98 - 107 05/04/2020 DTL mmol/L 5:44 AM CDT Bicarbonate, S 20 (L) 22 - 29 05/04/2020 DTL mmol/L 5:44 AM CDT Anion Gap 14 7 - 15 05/04/2020 DTL 5:44 AM CDT BUN (Blood Urea 51 (H) 8 - 24 05/04/2020 DTL Nitrogen), S mg/dL 5:44 AM CDT Creatinine 1.84 (H) 0.74 - 05/04/2020 DTL 1.35 mg/dL 5:44 AM CDT eGFR-Non 35 (L) >=60 05/04/2020 DTL Black/ mL/min/BSA 5:44 AM CDT Nigerien Comment: ----ADDITIONAL INFORMATION---- Estimated GFR calculated using the 2009 CKD_EPI creatinine equation. eGFR-Black/ 40 (L) >=60 mL/min/BSA 2019 5:44 AM CDT DTL Comment: ----ADDITIONAL INFORMATION---- Estimated GFR calculated using the 2009 CKD_EPI creatinine equation. Calcium, Total, S 8.9 8.8 - 10.2 mg/dL 05/04/2020 5:44 AM CDT DTL Glucose, S 216 (H) 70 - 140 mg/dL 05/04/2020 5:44 AM CDT D TL Protein, Total, S 5.9 (L) 6.3 - 7.9 g/dL 05/04/2020 5:44 A M CDT DTL Albumin, S 3.6 3.5 - 5.0 g/dL 05/04/2020 5:44 AM CDT D TL Aspartate Aminotransferase 44 8 - 48 U/L 05/04/2020 5 :44 AM CDT DTL (AST), S Alkaline Phosphatase, S 176 (H) 40 - 129 U/L 05/04/2020 5: 44 AM CDT DTL Alanine Aminotransferase 89 (H) 7 - 55 U/L 05/04/2020 5:4 4 AM CDT DTL (ALT), S Bilirubin, Total, S 0.3 <=1.2 mg/dL 05/04/2020 5:44 AM CDT DTL Specimen Anatomical Collection Method Collection Time Receive d Time (Source) Location / / Volume Laterality Blood (Blood, 05/04/2020 4:20 AM 05/04/20 20 5:25 Venous) CDT AM CDT Lulu Wilkins APRN, C.N.P. LAB BLOOD ADD-ON Performing Organization Address City/State/[facility] Code Phon e Number [facility] - 200 [place], [place] [address] [place] [address] Laboratories-[address] (ABNORMAL) CBC without Differential (05/04/2020 4:20 AM CDT) Patholo gist Method Time Signature Hemoglobin 9.6 (L) 13.2 - 05/04/2020 DTL 16.6 g/dL 5:18 AM CDT Hematocrit 29.6 (L) 38.3 - 05/04/2020 DTL 48.6 % 5:18 AM CDT Erythrocytes 3.22 (L) 4.35 - 05/04/2020 DTL 5.65 5:18 AM CDT x10(12)/L MCV 91.9 78.2 - 05/04/2020 DTL 97.9 fL 5:18 AM CDT RBC Distrib Width 14.6 (H) 11.8 - 05/04/2020 DTL 14.5 % 5:18 AM CDT Platelet Count 226 135 - 317 05/04/2020 DTL x10(9)/L 5:18 AM CDT Leukocytes 6.9 3.4 - 9.6 05/04/2020 DTL x10(9)/L 5:18 AM CDT Specimen Anatomical Collection Method Collection Time Receive d Time (Source) Location / / Volume Laterality Blood (Blood, 05/04/2020 4:20 AM 05/04/20 5:09 Venous) CDT AM CDT Lulu Wilkins APRN, C.N.P. LAB BLOOD ADD-ON Performing Organization Address City/State/ZIP Code Phon e Number [facility] - 200 [place], [place] [address] (ABNORMAL) Troponin T, 5th Generation (05/04/2020 4:20 AM CDT) P athologist Signature Troponin T, 125 (H) <=15 ng/L 05/04/2020 STMA 5th gen 5:01 AM CDT Comment: Consider acute myocardial injur y Specimen Anatomical Collection Method Collection Time Receive d Time (Source) Location / / Volume Laterality Blood (Blood, 05/04/2020 4:20 AM 05/04/20 4:44 Venous) CDT AM CDT Lulu Wilkins APRN, C.N.P. LAB BLOOD ADD-ON Performing Organization Address City/[facility]/ZIP Code Phon e Number [facility] - [address] [place], [place] [address] [facility] [place] [address] Laboratories-[facility] [address] (ABNORMAL) Glucose, POCT (05/03/2020 10:22 PM CDT) Analysis Performed At Patho logist Time Signature Glucose, POCT, 259 (H) 70 - 140 05/03/2020 PCLX B mg/dL 10:30 PM CDT Site Capillary 05/03/2020 PCLX 10:30 PM CDT Last Intake 2-3 hours 05/03/2020 PCLX 10:30 PM CDT Specimen Anatomical Collection Method Collection Time Receive d Time (Source) Location / / Volume Laterality Blood 05/03/2020 10:22 05/03/2020 PM CDT 10:30 PM CDT Unknown Provider LAB POCT ORDERABLES-MANUAL Performing Organization Address City/[facility] Code Phon e Number [facility] [address] [place] [address] [place] [address] [place] POC 200 [facility] SARS Coronavirus 2 IgG Ab, Serum (05/03/2020 8:03 PM CDT) P athologist Signature SARS-CoV-2 IgG Negative Negative 05/04/2020 SDSC Ab 4:28 PM CDT Comment: No IgG antibodies to SARS-CoV-2 detected . ?? Negative results may occur in serum ar ected too soon following infection, or in immunosuppres sed patients. ?? Follow-up testing with a molecular test is recommended in symptomatic patients. ??This test maren uld not be used to exclude active/recent COVID-19. ?? Testing was performed using the EUROIMMUN Lays-HVNP-CfA-2 ALISTAIR (IgG), which has received Emergency Use Authori zation (EUA) by the U.S. Food and Drug Administration . ?? Fact sheets for this EUA assay can be fo und at the following links: ?? Factsheet for healthcare Providers: ?? https://www.fda.gov/media/198910/downloa d Factsheet for healthcare Patients: ?? https://www.fda.gov/media/318123/downloa d Specimen Anatomical Collection Method Collection Time Receive d Time (Source) Location / / Volume Laterality Blood (Blood, 05/03/2020 8:03 PM 05/04/20 20 7:27 Venous) CDT AM CDT Lulu Tae Wilkins APRN, C.N.P. LAB MICROBIOLOGY - BLOOD ORDERABLES Performing Organization Address City/State/ZIP Code Phon e Number [facility] [address] [place], [place] [address] [facility] [place] [address] Laboratory Medicine and Pathology [address] [place] SARS Coronavirus-2 RNA, V (05/03/2020 7:12 PM CDT) [facility] Method Time Signature SARS-CoV-2 Nasopharynx 05/04/2020 DTL Specimen 2:45 AM CDT Source SARS CoV-2 Undetected Undetected 05/04/2020 DTL RNA, TMA 2:45 AM CDT Comment: SARS-CoV-2 RNA absent. This result does not rule out COVID-19 in the patient, as the sensitivity of the test depends o n the timing of the specimen collection and the quality of the specim en. Result should be correlated with patient's history and clinical presentat ion. ----ADDITIONAL INFORMATION---- This test is performed using the Aptima SARS-CoV-2 assay ([employer] which has received Emergency Use Authori zation (EUA) by the U.S. Food and Drug Administration. Fact sheets for this Emergency Use Autho rization (EUA) assay can be found at the following links: For Healthcare Providers: https://www.fd a.gov/media/175890/download For Patients: https://www.fda.gov/media/ 109046/download Specimen Anatomical Collection Method Collection Time Receive d Time (Source) Location / / Volume Laterality Varies 05/03/2020 7:12 PM 0 CDT 10:07 PM CDT Lulu Wilkins APRN C.NMauroPMauro LAB MICROBIOLOGY - GENER AL ORDERABLES Performing Organization Address City/State/ZIP Code Phon e Number [facility] - 200 [place], [place] [address] [facility] [place] [address] Laboratories-[facility] 200 [facility] (ABNORMAL) Glucose, POCT (05/03/2020 5:55 PM CDT) Analysis Performed At Patho logist Time Signature Glucose, POCT, 158 (H) 70 - 140 05/03/2020 PCLX B mg/dL 5:58 PM CDT Site Capillary 05/03/2020 PCLX 5:58 PM CDT Last Intake > 4 hours 05/03/2020 PCLX 5:58 PM CDT Specimen Anatomical Collection Method Collection Time Receive d Time (Source) Location / / Volume Laterality Blood 05/03/2020 5:55 PM 0 5:58 CDT PM CDT Unknown Provider LAB POCT ORDERABLES-MANUAL Performing Organization Address City/[facility]/ZIP Code Phon e Number POC [facility] [address] [place] [address] PCLX [facility] [place] [address] [place] POC [address] [place] [address] (ABNORMAL) Troponin T, 2H/6H, 5th Gen (05/03/2020 3:53 PM CDT) P athologist Signature Troponin T, 2 119 (H) <=15 ng/L 05/03/2020 STMA hr, 5th gen 4:31 PM CDT Comment: Consider acute myocardial injur y 2H Delta 5 ng/L 05/03/2020 4:31 PM CDT STMA 2H Delta Interp Indeterminate 05/03/2020 4:31 PM C DT STMA Comment: Indeterminate delta, additional sample suggested Troponin T, 6 hr, 5th gen 107 (H) <=15 ng/L 05/03/2020 9:1 3 PM CDT STMA Comment: Consider acute myocardial injur y 6H Delta -7 ng/L 05/03/2020 9:13 PM CDT STMA 6H Delta Interp Not Changing 05/03/2020 9:13 PM CD T STMA Specimen Anatomical Collection Method Collection Time Receive d Time (Source) Location / / Volume Laterality Blood (Blood, 05/03/2020 3:53 PM 05/03/20 20 4:01 Venous) CDT PM CDT Narrative [facility] - [facility] - 05/03/2020 9:13 PM CDT Specimen Information: Specimen ID: [id number] Specimen Type: Blood Specimen Collection Start Date: 0 ??3:53 PM Specimen Received Date: 05/03/2020 ??4:01 PM Specimen ID: [id number] Specimen Type: Blood Specimen Collection Start Date: 0 ??8:03 PM Specimen Received Date: 05/03/2020 ??8:23 PM Brandon Ellsworth D.O. LAB BLOOD TROPONIN Performing Organization Address City/State/ZIP Code Phon e Number [facility] - [address] [place] [address] [place] [address] Laboratories-[facility] [address] DX Chest AP or PA and Lateral 2 Views (05/03/2020 2:18 PM CDT) Anatomical Region Laterality Modality Chest, Thoracic RST LOS, Thoracic ARZ LOS, Thoracic N/A Digital Radiography FLA LOS Specimen (Source) Anatomical Collection Method Collection Time Re ceived Time Location / / Volume Laterality 05/03/2020 2:45 PM CDT Impressions 05/03/2020 2:46 PM CDT Bilateral pleural effusions are new since 11/16/2019. Pulmonary vascular congestion with patchy lower carine ng infiltrates which could be due to edema. Aortic calcification. Slight card iac enlargement. Narrative 05/03/2020 2:46 PM CDT EXAM: ??DX CHEST AP OR PA AND LATERAL 2 VIEWS Procedure Note Joel Cabral M.D. - 05/03/2020Format ting of this note might be different from the original. EXAM: DX CHEST AP OR PA AND LATERAL 2 EWS IMPRESSION: Bilateral pleural effusions are new sinc e 11/16/2019. Pulmonary vascular congestion with patchy lower carine ng infiltrates which could be due to edema. Aortic calcification. Slight card iac enlargement. Brandon Ellsworth D.O. IMG DIAGNOSTIC IMAGING PROCE DURES Magnesium (05/03/2020 1:44 PM CDT) athologist Signature Magnesium, S 2.2 1.7 - 2.3 05/03/2020 DTL mg/dL 2:37 PM CDT Specimen Anatomical Collection Method Collection Time Receive d Time (Source) Location / / Volume Laterality Blood (Blood, 05/03/2020 1:44 PM 05/03/20 20 2:28 Venous) CDT PM CDT Brandon Ellsworth D.O. LAB BLOOD ADD-ON Performing Organization Address City/[facility] Code Phon e Number [facility] - [address] [place], [place] [address] [facility] DTL [address] (ABNORMAL) NT-Pro B-Type Natriuretic Peptide (BNP) (05/03/2020 1:44 PM CDT) athologist Signature NT-Pro BNP 4532 (H) 5 - 116 05/03/2020 STMA pg/mL 2:28 PM CDT Comment: NT-proBNP values less than [...] Location / / Volume Laterality Blood (Blood, 05/03/2020 1:44 PM 05/03/20 20 2:03 Venous) CDT PM CDT Brandon Ellsworth D.O. LAB BLOOD ADD-ON Performing Organization Address City/State/[facility] Code Phon e Number [facility] - [address] [place], [place] [address] [facility] [place] [address] Laboratories-[address] (ABNORMAL) Troponin T, Baseline, 5th gen (05/03/2020 1:44 PM CDT) athologist Signature Troponin T, 114 (H) <=15 ng/L 05/03/2020 STMA Baseline, 5th 2:21 PM CDT gen Comment: Consider acute myocardial injur y Specimen Anatomical Collection Method Collection Time Receive d Time (Source) Location / / Volume Laterality Blood (Blood, 05/03/2020 1:44 PM 05/03/20 2:03 Venous) CDT PM CDT Brandon Ellsworth D.O. LAB BLOOD TROPONIN Performing Organization Address City/State/ZIP Code Phon e Number [facility] - 200 [place], [place] [address] [facility] [place] [address] Laboratories-[facility] 200 [facility] (ABNORMAL) Basic Metabolic Panel (05/03/2020 1:44 PM CDT) Analysis Performed At Patho logist Time Signature Potassium, P 5.1 3.6 - 5.2 05/03/2020 STMA mmol/L 2:20 PM CDT Sodium, P 142 135 - 145 05/03/2020 STMA mmol/L 2:20 PM CDT Chloride, P 107 98 - 107 05/03/2020 STMA mmol/L 2:20 PM CDT Bicarbonate, P 22 22 - 29 05/03/2020 STMA mmol/L 2:20 PM CDT Anion Gap, P 13 7 - 15 05/03/2020 STMA 2:20 PM CDT BUN (Blood Urea 52 (H) 8 - 24 05/03/2020 STMA Nitrogen), P mg/dL 2:20 PM CDT Creatinine 1.90 (H) 0.74 - 05/03/2020 STMA 1.35 mg/dL 2:20 PM CDT eGFR-Black/Afri 39 (L) >=60 05/03/2020 STMA can Nigerien mL/min/BSA 2:20 PM CDT Comment: ----ADDITIONAL INFORMATION---- Estimated GFR calculated using the 2009 CKD_EPI creatinine equation. eGFR Non-Black/ 33 (L) >=60 mL/min/BSA 05/03/2020 2:20 PM CDT STMA Nigerien Comment: ----ADDITIONAL INFORMATION---- Estimated GFR calculated using the 2009 CKD_EPI creatinine equation. Calcium, Total, P 8.9 8.8 - 10.2 mg/dL 05/03/2020 2:20 PM CDT STMA Glucose, P 280 (H) 70 - 140 mg/dL 05/03/2020 2:20 PM CDT S TMA Specimen Anatomical Collection Method Collection Time Receive d Time (Source) Location / / Volume Laterality Blood (Blood, 05/03/2020 1:44 PM 05/03/20 20 2:03 Venous) CDT PM CDT Brandon Ellsworth D.O. LAB BLOOD ADD-ON Performing Organization Address City/[facility] Phon e Number [facility] - 200 [place], [place] [address] [place] [address] (ABNORMAL) CBC without Differential (05/03/2020 1:44 PM CDT) [facility] gist Method Time Signature Hemoglobin 10.0 (L) 13.2 - 05/03/2020 STMA 16.6 g/dL 2:07 PM CDT Hematocrit 30.5 (L) 38.3 - 05/03/2020 STMA 48.6 % 2:07 PM CDT Erythrocytes 3.36 (L) 4.35 - 05/03/2020 STMA 5.65 2:07 PM CDT x10(12)/L MCV 90.8 78.2 - 05/03/2020 STMA 97.9 fL 2:07 PM CDT RBC Distrib Width 14.5 11.8 - 05/03/2020 STMA 14.5 % 2:07 PM CDT Platelet Count 225 135 - 317 05/03/2020 STMA x10(9)/L 2:07 PM CDT Leukocytes 7.0 3.4 - 9.6 05/03/2020 STMA x10(9)/L 2:07 PM CDT Specimen Anatomical Collection Method Collection Time Receive d Time (Source) Location / / Volume Laterality Blood (Blood, 05/03/2020 1:44 PM 05/03/20 20 2:03 Venous) CDT PM CDT Brandon Ellsworth D.O. LAB BLOOD ADD-ON Performing Organization Address City/[facility] Code Phon e Number [facility] - [address] ECG 12 Lead (05/03/2020 1:34 PM CDT) P athologist Signature Ventricular Rate 59 BPM MUSE ECG/Min AR Interval 182 ms MUSE QRSD Interval 102 ms MUSE QT Interval 494 ms MUSE QTC Interval 489 ms MUSE P [place] 60 degrees MUSE R [place] -21 degrees MUSE T Wave [place] 72 degrees MUSE Specimen Anatomical Collection Method Collection Time Receive d Time (Source) Location / / Volume Laterality 05/03/2020 1:34 PM 0 1:42 CDT PM CDT Impressions MUSE - 05/03/2020 1:42 PM CDT Sinus bradycardia Premature ventricular complexes in a pat tern of bigeminy Nonspecific T wave abnormality When compared with ECG of 20-JAN-2020 08 :49, Premature ventricular complexes are now present QRS axis has changed Reviewed by SEAN Guzmán Narrative This result has an attachment that is no t available. Procedure Note Shlomo Goodrich Jr., M.D. - 05/03/2020For matting of this note might be different from the original. IMPRESSION: Sinus bradycardia Premature ventricular complexes in a pat tern of bigeminy Nonspecific T wave abnormality When compared with ECG of 20-JAN-2020 08 :49, Premature ventricular complexes are now present QRS axis has changed Reviewed by SEAN Guzmán Brandon Ellsworth D.O. ECG ORDERABLES Performing Organization Address City/State/ZIP Code Phon e Number MUSE MUSE NA documented in this encounter Visit Diagnoses Diagnosis Failure Heart (HCC) Arrhythmia Ventricular Failure Renal Acute (Acute Kidney Injury ) (HCC) Diabetes Mellitus Type 2 Without Complic ation (HCC) Hyperlipidemia Hyperplasia Prostate Benign Localized Wi th Obstruction Hypertension Essential Primary Pancreatitis Chronic Recurrent (HCC) Stroke (HCC) Beat Premature Ventricular Acute On Chronic Systolic (Congestive) H eart Failure (HCC) documented in this encounter Administered Medications Inactive Administered Medications - up to 3 most recent administrations Medication Order MAR Action Action Date Dose Rate Site acetaminophen tablet 1,000 mg Given 05/04/2020 2:26 AM CDT 1,000 mg (TYLENOL) 1,000 mg, oral, Every 6 hours PRN, mild pain or score 1-3 of 10, fever, Notify sevice prior to first administration for fever, Starting on Fri05/03/20 at 1735 amiodarone tablet 400 mg (PACERONE) Given 05/06/2020 3:06 PM CDT 400 mg 400 mg, oral, 3 times daily, First dose on Fri05/03/20 at 1815 Given 05/06/2020 9:53 AM CDT 400 mg Given 05/05/2020 9:55 PM CDT 400 mg atorvastatin tablet 80 mg (LIPITOR) Given 05/06/2020 9:53 AM CDT 80 mg 80 mg, oral, Daily, First dose on Hali 05/04/20 at 0900 Given 05/05/2020 8:24 AM CDT 80 mg Given 05/04/2020 8:30 AM CDT 80 mg cholecalciferol (vitamin D3) tablet Given 05/06/2020 9:53 AM CDT 1,000 Units 1,000 Units 1,000 Units, oral, Daily, First dose on Hali 05/04/20 at 0900, cholecalciferol (vitamin D3) orderable was interchanged for cholecalciferol (vitamin D3) tablet/capsule 25 mcg cholecalciferol equivalent to 1000 units cholecalciferol Given 05/05/2020 8:23 AM CDT 1,000 Units Given 05/04/2020 8:29 AM CDT 1,000 Units clopidogreL tablet 75 mg (PLAVIX) Given 05/06/2020 9:53 AM CDT 75 mg 75 mg, oral, Daily, First dose on Hali 05/04/20 at 0900 Given 05/05/2020 8:24 AM CDT 75 mg Given 05/04/2020 8:29 AM CDT 75 mg escitalopram tablet 10 mg (LEXAPRO) Given 05/06/2020 9:53 AM CDT 10 mg 10 mg, oral, Daily, First dose on Hali 05/04/20 at 0900 Given 05/05/2020 8:25 AM CDT 10 mg Given 05/04/2020 8:30 AM CDT 10 mg fluticasone furoate-vilanteroL 200-25 Given 05/06/2020 10:12 AM CDT 1 puff mcg/act inhaler 1 puff (BREO ELLIPTA DIS KUS) 1 puff, inhalation, Daily (RT), First dose on Hali 05/04/20 at 0800, fluticasone/vilanterol diskus 200/25 mcg was interchanged for Budesonide/Formoterol Given 05/05/2020 8:30 AM CDT 1 puff Given 05/04/2020 8:28 AM CDT 1 puff furosemide 1 mg/mL in NaCl 0.9% New Bag 05/05/2020 8:42 AM CDT 10 mg/hr 10 mL/hr 300 mL infusion (LASIX) 10 mg/hr (10 mL/hr), intravenous, Continuous, Starting on Fri05/05/20 at 0815, Do NOT refrigerate., Type: Do Not Titrate furosemide 120 mg in NaCl 0.9% IVPB New Bag 05/04/2020 8:14 AM CDT 120 mg 124 mL/hr (LASIX) 120 mg, intravenous, at 124 mL/hr, Administer over 30 Minutes, Once, On Hali 05/04/20 at 0700, For 1 dose, Adults: Doses less than 120 mg: IV push over 20 mg/minute. Doses 120 mg or greater: IVPB at 4 mg/minute. Peds/Neonates: Doses less than 120 mg over 0.5 mg/kg/minute. Doses 120 mg or greater: IVPB at 4 mg/minute. Do NOT refrigerate. furosemide injection 100 mg (LASIX) Given 05/03/2020 6:52 PM CDT 100 mg 100 mg, intravenous, Once, On Fri05/03/20 at 1815, For 1 dose, Adults: Doses less than 120 mg: IV push over 20 mg/minute. Doses 120 mg or greater: IVPB at 4 mg/minute. Peds/Neonates: Doses less than 120 mg over 0.5 mg/kg/minute. Doses 120 mg or greater: IVPB at 4 mg/minute. furosemide injection 20 mg (LASIX) Given 05/03/2020 3:04 PM CDT 20 mg 20 mg, intravenous, Once, On Fri05/03/20 at 1455, For 1 dose, Adults: Doses less than 120 mg: IV push over 20 mg/minute. Doses 120 mg or greater: IVPB at 4 mg/minute. Peds/Neonates: Doses less than 120 mg over 0.5 mg/kg/minute. Doses 120 mg or greater: IVPB at 4 mg/minute. furosemide injection 80 mg (LASIX) Given 05/05/2020 7:48 AM CDT 80 mg 80 mg, intravenous, Once, On Fri05/05/20 at 0645, For 1 dose, Adults: Doses less than 120 mg: IV push over 20 mg/minute. Doses 120 mg or greater: IVPB at 4 mg/minute. Peds/Neonates: Doses less than 120 mg over 0.5 mg/kg/minute. Doses 120 mg or greater: IVPB at 4 mg/minute. furosemide tablet 40 mg (LASIX) 40 mg, oral, Daily, First dose on Fri05/07/20 at 0900 heparin (porcine) Given 05/06/2020 5:43 AM CDT 5,000 Units Left Lower Abdomen injection 5,000 Units 5,000 Units, subcutaneous, Every 8 hours scheduled, First dose on Fri05/03/20 at 2200 Given 05/05/2020 9:55 PM CDT 5,000 Units Left Upper Abdomen Given 05/05/2020 2:21 PM CDT 5,000 Units Right Lower Abdomen hydrALAZINE tablet 25 mg (APRESOLINE) Given 05/06/2020 3:06 PM CDT 25 mg 25 mg, oral, Every 8 hours scheduled, First dose on Fri05/05/20 at 0645 Given 05/06/2020 5:43 AM CDT 25 mg Given 05/05/2020 9:55 PM CDT 25 mg insulin aspart U-100 Given 05/04/2020 12:37 PM CDT 7 Units Right Upper Arm (Carbohydrate Count) (Amira k) injection 0-20 Units (NovoLOG FlexPen) 0-20 Units, subcutaneous, 3 times daily with meals, First dose on Fri05/04/20 at 0830, Simple or Complex Ratio: Simple, Carb Ratio - Simple (1 unit per __ grams of carbohydrates): 10 Given 05/04/2020 8:56 AM CDT 6 Units Left Upper Arm (Back) insulin aspart U-100 Given 05/06/2020 12:45 PM 3 Units Right Lower Abdomen (Carbohydrate Count) CDT injection 0-20 Units (NovoLOG FlexPen) 0-20 Units, subcutaneous, 3 times daily with meals, First dose (after last modification) on Fri05/04/20 at 1700, Simple or Complex Ratio: Simple, Carb Ratio - Simple (1 unit per __ grams of carbohydrates): 15 Given 05/06/2020 10:08 AM CDT 4 Units Righ t Lower Abdomen Given 05/05/2020 5:21 PM CDT 5 Units Left Lower Abdomen insulin aspart U-100 Given 05/06/2020 10:10 AM CDT 4 Units Right Lower Abdomen injection 0-13 Units (NovoLOG FlexPen) 0-13 Units, subcutaneous, 3 times daily, First dose on Fri05/04/20 at 0800, Insulin Scale: Moderate Correction Scale, 140 - 179: 2 units, 180 - 219: 4 units, 220 - 259: 6 units, 260 - 299: 8 units, 300 - 339: 10 units, 340 - 379: 12 units, 380 - 399: 13 units, Greater than 399: Call service writing Insulin orders Given 05/05/2020 12:34 PM CDT 4 Units Righ t Lower Abdomen Given 05/05/2020 8:40 AM CDT 2 Units Left Lower Abdomen insulin glargine injection Given 05/05/2020 10:09 PM CDT 14 Unit s Left Lower Abdomen 14 Units 14 Units, subcutaneous, Daily at bedtime, First dose (after last modification) on Fri05/05/20 at 2100 insulin glargine injection Given 05/04/2020 8:38 PM CDT 20 Units Right Lower Abdomen 20 Units 20 Units, subcutaneous, Daily at bedtime, First dose on Fri05/04/20 at 2100 insulin glargine injection Given 05/03/2020 10:23 PM CDT 30 Unit s Left Lower Abdomen 30 Units 30 Units, subcutaneous, Daily at bedtime, First dose on Fri05/03/20 at 2100, For 2 doses ipratropium-albuteroL 0.5-2.5 mg/3 mL ne bulizer solution 3 mL (DUONEB) 3 mL, nebulization, 4 times daily PRN, w heezing, shortness of breath, Starting on Fri05/03/20 at 1933 isosorbide mononitrate 24 hr tablet 60 mg Given 05/06/2020 9:53 AM CDT 60 mg (IMDUR) 60 mg, oral, Daily, First dose on Fri05/04/20 at 0900, Do NOT crush or chew. Tablet may be split on score if needed. Given 05/05/2020 8:25 AM CDT 60 mg Given 05/04/2020 8:29 AM CDT 60 mg pwghzz-efrgdbmz-mzfwdub Given 05/04/2020 4:50 PM CDT 1 capsule 6,000-19,000-30,[address] capsule 1 capsule (CREON) 1 capsule, oral, As needed, snacks, Starting on Fri05/03/20 at 1729, Do NOT crush or chew. Capsule may be opened and the contents taken without crushing or chewing. Given 05/04/2020 12:37 PM CDT 1 capsule Given 05/04/2020 8:30 AM CDT 1 capsule wrbttl-vmagqnwj-zebmmvo Given 05/06/2020 12:00 PM CDT 2 capsules 6,000-19,000-30,[address] capsule 2 capsule (CREON) 2 capsule, oral, 3 times daily with meals, First dose on Fri05/03/20 at 1745, Do NOT crush or chew. Capsule may be opened and the contents taken without crushing or chewing. Given 05/06/2020 8:44 AM CDT 2 capsules Given 05/05/2020 5:13 PM CDT 2 capsules LORazepam injection 0.5 mg (ATIVAN) Given 05/03/2020 3:04 PM CDT 0.5 mg 0.5 mg, intravenous, Once, On Fri05/03/20 at 1455, For 1 dose, For intravenous use, dilute with equal volume of 0.9% NS LORazepam tablet 0.5 mg (ATIVAN) 0.5 mg, oral, 2 times daily PRN, anxiety , agitation, Starting on Fri05/04/20 at 1628 magnesium sulfate in water IVPB 2 g New Bag 05/04/2020 8:51 AM CDT 2 g 25 mL/hr 2 g, intravenous, at 25 mL/hr, Administer over 120 Minutes, Once, On Fri05/04/20 at 0700, For 1 dose, Over 2 hours. premix bag metoprolol succinate 24 hr tablet 50 mg Given 05/06/2020 9:53 AM CDT 50 mg (TOPROL-XL) 50 mg, oral, Daily, First dose on Hali 05/04/20 at 0900, Do NOT crush or chew. Tablet may be split on score if needed. Given 05/05/2020 8:25 AM CDT 50 mg Given 05/04/2020 8:29 AM CDT 50 mg sodium chloride 0.9 % injection 2-10 mL Given 05/03/2020 1:44 PM CDT 3 mL 2-10 mL, intravenous, As needed, line care, Starting on Fri05/03/20 at 1330 sodium chloride 0.9 % injection 3 mL Given 05/04/2020 10:48 AM CDT 3 mL 3 mL, intravenous, As needed, line care, Starting on Fri05/03/20 at 1731, Prior to and following infusion and between multiple consecutive infusions: sodium chloride 0.9 % injection sodium chloride 0.9 % injection 3 mL Given 05/05/2020 8:31 AM CDT 3 mL 3 mL, intravenous, Every 12 hours scheduled, First dose on Fri05/03/20 at 2100, Peripheral Intravenous Catheter and Rapid Infusion Catheter, when no infusion to maintain patency Given 05/04/2020 8:39 PM CDT 3 mL Given 05/04/2020 8:50 AM CDT 3 mL traZODone tablet 100 mg (DESYREL) Given 05/05/2020 9:55 PM CDT 100 mg 100 mg, oral, Bedtime PRN, sleep, Starting on Hali 05/04/20 at 1151 Given 05/04/2020 8:37 PM CDT 100 mg zolpidem tablet 5 mg (AMBIEN) Given 05/05/2020 9:55 PM CDT 5 mg 5 mg, oral, Bedtime PRN, sleep, Starting on Hali 05/04/20 at 1152 Given 05/04/2020 8:38 PM CDT 5 mg documented in this encounter Active and Recently Administered Medications Times are shown in CDT. Scheduled Medication Order 05/04/2020 05/05/2020 05/06/2020 amiodarone tablet 400 mg (PACERONE) 0829 (Given - Prov ider: Emilia Garcia R.N.)1354 (Given - Provider: Emilia Garcia R.N.)2038 (Given - Provider: Ronda Mckoy R.N.) 0824 (Given - Provider: Francisco magana, R.N.)1417 (Given - Provider: Francisco Zuluaga, R.N.)2155 (Given - Provider: Sophie Nguyen R.N.) 0953 (Given - Provider: Love Ayala, R.N.)1506 (Given - Provider: Love Ayala, R.N.) 400 mg, oral, 3 times daily, First dose on Fri05/03/20 at 1815 atorvastatin tablet 80 mg (LIPITOR) 0830 (Given - Prov ider: Emilia Garcia R.N.) 0824 (Given - Provider: Francisco Zuluaga R.N.) 0953 (Given - Provider: Love Ayala R.N.) 80 mg, oral, Daily, First dose on Hali 05/04/20 at 0900 cholecalciferol (vitamin D3) tablet 1,000 Units 0829 ( Given - Provider: Emilia Garcia R.N.) 0823 (Given - Provider: Kristie DickensNMauro) 0953 (Given - Provider: Love Ayala R.N.) 1,000 Units, oral, Daily, First dose on Hali 05/04/20 at 0900, cholecalciferol (vitamin D3) orderable was interchanged for cholecalciferol (vitamin D3) tablet/capsule 25 mcg cholecalciferol equivalent to 1000 units cholecalciferol clopidogreL tablet 75 mg (PLAVIX) 0829 (Given - Provid er: Emilia Garcia R.N.) 0824 (Given - Provider: Francisco Zuluaga R.N.) 0953 (Given - Provider: Love Ayala R.N.) 75 mg, oral, Daily, First dose on Hali 05/04/20 at 0900 escitalopram tablet 10 mg (LEXAPRO) 0830 (Given - Prov ider: Emilia Garcia R.N.) 0825 (Given - Provider: Kristie DickensNMauro) 0953 (Given - Provider: Kristie Dela CruzNMauro) 10 mg, oral, Daily, First dose on Hali 05/04/20 at 0900 fluticasone furoate-vilanteroL 200-25 mc g/act inhaler 1 puff (BREO ELLIPTA DISKUS) 0828 (Given - Provider: Emilia Garcia R.N.) 0830 ( Given - Provider: Kristie DickensNMauro) 1012 (Given - Provider: Love Ayala R.N.) 1 puff, inhalation, Daily (RT), First do se on Hali 05/04/20 at 0800, fluticasone/vilanterol diskus 200/25 mcg was interchanged for Budesonide/Formoterol furosemide 120 mg in NaCl 0.9% IVPB (LASIX) (COMPLETED ) 08 (New Bag - Provider: Emilia Garcia RMauroNMauro) 120 mg, intravenous, at 124 mL/hr, Admin ister over 30 Minutes, Once, On Hali 05/04/20 at 0700, For 1 dose, Adults: Doses less than 120 mg: IV push over 20 mg/minute. Doses 120 mg or greater: IVPB at 4 mg/m inute. Peds/Neonates: Doses less than 12 0 mg over 0.5 mg/kg/minute. Doses 120 mg or greater: IVPB at 4 mg/minute. Do NOT refrigerate. furosemide injection 80 mg (LASIX) (COMPLETED) 0748 (Given - Provider: Francisco Zuluaga R.N.) 80 mg, intravenous, Once, On Fri05/05/20 at 0645, For 1 dose, Adults: Doses less than 120 mg: IV push over 20 mg/minute. Doses 120 mg or greater: IVPB at 4 mg/minute. Peds/Neonates: Doses less than 120 m g over 0.5 mg/kg/minute. Doses 120 mg or greater: IVPB at 4 mg/m inute. furosemide tablet 40 mg (LASIX) 40 mg, oral, Daily, First dose on Fri05/07/20 at 0900 heparin (porcine) injection 5,000 Units 0527 (Given - Provider: Wilda Barillas RMauroN.)1355 (Given - Provider: Emilia Garcia RShama.)2126 (Given - Provider: Ronda Mckoy RMauroN.) 0517 (Given - Provider: Chelo Gautam RJustina, [facility])1421 (Given - Provider: Francisco Zuluaga RMauroN.)2155 (Given - Provider: Sophie Nguyen R.N.) 0543 (Given - Provider: Shahid Tracy RMauroNMauro)1400 (Due) 5,000 Units, subcutaneous, Every 8 hours scheduled, First dose on Fri05/03/20 at 2200 hydrALAZINE tablet 25 mg (APRESOLINE) 07 49 (Given - Provider: Francisco Zuluaga RShama.)1417 (Given - Provider: Francisco Zuluaga R.N.)215 (Given - Provider: Sophie M Derome, R.N.) 0543 (Given - Provider: Shahid Tracy RMauroN.)1506 (Given - Provider: Love Ayala R.N.) 25 mg, oral, Every 8 hours scheduled, First dose on Fri05/05/20 a t 0645 insulin aspart U-100 (Carbohydrate Count ) injection 0-20 Units (NovoLOG FlexPen) (CANCELED) 0856 (Given - Provider: Emilia Garcia RMauroN.)1237 (Given - Provider: Kristie YañezN.) 0-20 Units, subcutaneous, 3 times daily with meals, First dose on Fri05/04/20 at 0830, Simple or Complex Ratio: Simple, Carb Ratio - Simple (1 unit per __ grams of carbohydrates): 10 insulin aspart U-100 (Carbohydrate Count ) injection 0-20 Units (NovoLOG FlexPen) 1720 (Given - Provider: Ronda Mckoy R.N.) 083 8 (Given - Provider: Francisco Zuluaga R.N.)1232 (Given - Provider: Francisco Zuluaga R.N.)1721 (Given - Provider: Sophie Nguyen R.N.) 1008 (Given - Provider: Love Ayala RMauroN.)1245 (Given - Provider: Love Ayala RMauroN.)1700 (Due) 0-20 Units, subcutaneous, 3 times daily with meals, First dose (after last modification) on Fri05/04/20 at 1700, Simple or Complex Ratio: Simple, Carb Ratio - Simple (1 unit per __ grams of carbohydrates): 15 insulin aspart U-100 injection 0-13 Units (NovoLOG Fle xPen) 0821 (Given - Provider: Kristie YañezN.)1238 (Not Given - Provider: Emilia Garcia R.N. - Reason: Contraindicated)1650 (Not Given - Provider: Ronda Mckoy R.NMauro - Reason: Order parameters not met - Comment: RMG 79) 0840 (Given - Provider: Kristie DickensN.)1234 (Given - Provider: Francisco A Zan, R.N.)1717 (Not Given - Provider: Sophie Nguyen, R.N. - Reason: Other - Comment: Pt ate before BS was ta 1010 (Given - Provider: Love Ayala, R.N.)1249 (Not Given - Provider: Love Ayala, R.Aissatou. - Reason: Other)1700 (Due) 0-13 Units, subcutaneous, 3 times daily, First dose on Fri05/04/20 at 0800, Insulin Scale: Moderate Correction Scale, 140 - 179: 2 units, 180 - 219: 4 units, 220 - 259: 6 units, 260 - 299: 8 units, 300 - k en, Diabetes sx called, they said to hold sliding scale) 339: 10 units, 340 - 379: 12 units, 380 - 399: 13 units, Greater than 399: Call service writing Insulin orders insulin glargine injection 14 Units 2208 (Given - Provider: Sophie Nguyen, R.N.) 14 Units, subcutaneous, Daily at bedtime , First dose (after last modification) on Fri05/05/20 at 2100 insulin glargine injection 20 Units (CANCELED) 2037 (G iven - Provider: Ronda Mckoy, R.N.) 20 Units, subcutaneous, Daily at bedtime, First dose on Fri at 2100 isosorbide mononitrate 24 hr tablet 60 mg (IMDUR) 0829 (Given - Provider: Emilia Garcia, R.N.) 0825 (Given - Provider: Francisco Zuluaga R.N.) 0953 (Given - Provider: Love Ayala, R.N.) 60 mg, oral, Daily, First dose on 03/18 at 0900, Do NOT crush or chew. Tablet may be split on score if needed. fzwgbs-ncedqbxi-syfgxwt 6,000-19,000-30, [address] capsule 2 capsule (CREON) 0829 (Given - Provider: Emilia Garcia , R.N.)1237 (Given - Provider: Emilia Garcia R.N.)1650 (Given - Provider: Ronda Mckoy R.N.) 0823 (Given - Provider: Francisco Zuluaga R.N.)1227 (Given - Provider: Francisco Zuluaga RMauroNMauro)1713 (Given - Provider: Sophie Nguyen R.N. - Comment: Pt ate without telling nurse) 0844 (Given - Provider: Kristie WebsterN Mauro)1200 (Given - Provider: Love Ayala RJustina)1700 (Due) 2 capsule, oral, 3 times daily with meal s, First dose on Fri05/03/20 at 1745, Do NOT crush or chew. Capsule may be opened and the contents taken without crushing or chewing. magnesium sulfate in water IVPB 2 g (COMPLETED) 0851 ( New Bag - Provider: Emilia Garcia R.N.) 2 g, intravenous, at 25 mL/hr, Administe r over 120 Minutes, Once, On Fri05/04/20 at 0700, For 1 dose, Over 2 hours. premix bag metoprolol succinate 24 hr tablet 50 mg (TOPROL-XL) 08 29 (Given - Provider: Emilia Garcia R.N.) 0825 (Given - Provider: Francisco Zuluaga RMauroNMauro) 0953 (Given - Provider: Love Ayala RJustina) 50 mg, oral, Daily, First dose on 03/18 at 0900, Do NOT crush or chew. Tablet may be split on score if needed. sodium chloride 0.9 % injection 3 mL 0850 (Given - Pro vider: Emilia Garcia R.N.)203 (Given - Provider: Ronda Mckoy RMauroNMauro) 0831 (Given - Provider: Francisco Zuluaga R.N.)2203 (Not Given - Provider: Sophie Nguyen R.N. - Reason: Contraindicated) 0900 (Not Given - Provider: Love rodriguez R.N. - Reason: Other) 3 mL, intravenous, Every 12 hours schedu led, First dose on Fri05/03/20 at 2100, Peripheral Intravenous Catheter and Rapid Infusion Catheter, when no infusion to maintain patency Continuous Medication Order 05/04/2020 05/05/2020 05/06/2020 furosemide 1 mg/mL in NaCl 0.9% 300 mL infusion (LASIX) (CAN CELED) 0842 (New Bag - Provider: Francisco Zuluaga RMauroNMauro) 1400 (Stopped - Provider: Love Ayala RJustina) 10 mg/hr (10 mL/hr), intravenous, Contin uous, Starting on Fri05/05/20 at 0815, Do NOT refrigerate., Type: Do Not Titrate PRN Medication Order 05/04/2020 05/05/2020 05/06/2020 acetaminophen tablet 1,000 mg (TYLENOL) 0226 (Given - Provider: Wilda Barillas RJustina) 1,000 mg, oral, Every 6 hours PRN, mild pain or score 1-3 of 10, fever, Notify sevice prior to first administration for fever, Starting on Fri05/03/[address] tablet 10 mg (DULCOLAX) 10 mg, oral, Daily PRN, constipation, St arting Fri05/03/20 at 1735, PO route preferred. Constipation unrelieved by docusate sodium (COLACE) if ordered. If results needed within 2 hours give rectal suppos itory if ordered. Swallow whole. Do NOT crush, chew, or split ta blet. bisacodyL suppository 10 mg (DULCOLAX) 10 mg, rectal, Daily PRN, constipation, Starting Fri05/03/20 at 1735, PO route preferred. Constipation unrelieved by docusate sodium (COLACE) if ordered. If results needed within 2 hours - give rectal suppository. docusate sodium capsule 100 mg (COLACE) 100 mg, oral, 2 times daily PRN, constip ation, Starting Fri05/03/20 at 1731, Do NOT crush or chew. ipratropium-albuteroL 0.5-2.5 mg/3 mL nebulizer solution 3 mL (D UONEB) 3 mL, nebulization, 4 times daily PRN, w heezing, shortness of breath, Starting on Fri05/03/20 at 1933 douzcj-wjtftouc-oqupuog 6,000-19,000-30, [address] capsule 1 capsule (CREON) 0830 (Given - Provider: Emilia Garica R.N.)1237 (Given - Provider: Emilia Garcia R.N.)1650 (Given - Provider: Ronda Mckoy R.N.) 1 capsule, oral, As needed, snacks, Star ting on Fri05/03/20 at 1729, Do NOT crush or chew. Capsule may be opened and the contents taken without crushing or chewing. LORazepam tablet 0.5 mg (ATIVAN) 1651 (Not Given - Pro vider: Ronda Mckoy R.N. - Reason: Patient/family refused) 0.5 mg, oral, 2 times daily PRN, anxiety , agitation, Starting on Hali 05/04/20 at 1628 promethazine injection 6.25 mg (PHENERGAN) 6.25 mg, intravenous, Daily PRN, nausea, vomiting, 30 minutes after ondansetron if needed, Starting Fri05/03/20 at 1735, Notify service if nausea/vomiting symptoms persist. sodium chloride 0.9 % injection 10 mL 10 mL, intravenous, As needed, line care , Starting Fri05/03/20 at 1731, Peripheral Intravenous Catheter and Rapid Infusion Catheter, prior to blood sampling, post blood transfusion or post blood sampling sodium chloride 0.9 % injection 3 mL 1048 (Given - Pro vider: Emilia Garcia R.N.) 3 mL, intravenous, As needed, line care, Starting on Fri05/03/20 at 1731, Prior to and following infusion and between multiple consecutive infusions: sodium chloride 0.9 % injection traZODone tablet 100 mg (DESYREL) 2036 (Given - Provid er: Ronda Mckoy R.N.) 2154 (Given - Provider: Sophie Nguyen R.N.) 100 mg, oral, Bedtime PRN, sleep, Starting on Hali 05/04/20 at 1151 zolpidem tablet 5 mg (AMBIEN) 2037 (Given - Provider: Ronda Mckoy R.N.) 2154 (Given - Provider: Sophie Nguyen R.N.) 5 mg, oral, Bedtime PRN, sleep, Starting on Hali 05/04/20 at 1152 documented in this encounter Additional Health Concerns Infection Onset Date Last Indicated Resolved Time COVID19 Pending 05/03/2020 05/03/2020 05/03/2020 10:07 PM CDT Assessment Noted Time PHQ-9 Depression Total Score: 18 04/28/2018 11:27 AM C DT documented as of this encounter Care Teams Medical Laboratory Assistant Relationship Specialty Start Date End Date Chris Billings M.B.B.S., M.D. PCP - General Family Medicine 01/10/20 05/21/[address] [place] [address] [place] [phone] documented as of this encounter
--- OUTSIDE RECORDS SUMMARY | 2022-05-21 11:27 | XMS_ITS | Encounter Summary ---
:1945 Author Organization [facility] Address [address] [place] [address] Care Team Providers Name Role Phone Chris Billings M.D. Primary Care Provider [phone] Reason for Visit Reason Comments Post Hospital Follow-up [place] 05/06/20 @ 1707 Encounter Details Date Type Department Care Team Description 05/08/2020 Clinical Department of Ronda Fernandez Post Hospi ching Communication Family Medicine, A, R.N. Follow-up ([facility], [facility] 05/06/20 @ 1707) in [facility] [phone] [place] [address] [place], [place] (Work) [phone] Social History Tobacco Use [...] or relatives? How often do you attend adventist or Never 2021 holiness services? Do you belong to any clubs or No 10/09/2021 organizations such as adventist groups, unions, fraternal or athletic groups, or [...] have completed or the highest Martin, MEd, DATA CAPTURE SPECIALIST, [place]) degree you have received? Sex Assigned at Date Recorded Male 05/21/2018 2:34 PM CDT documented as of this encounter Miscellaneous Notes Telephone Encounter - Ronda Fernandez R.N. - 05/08/2020 3:01 PM CDT Care Coordination Patient meets criteria for Adult Medical Care Coordination. Discussed with patient the role of the Primary Care Registered Nurse Care Coordination Program. Patient agrees to a telephonic visit by the RN Telephone Clerk Telegraph Office later this week. All questions answered. Telephone Encounter - Ronda Fernandez R.N. - 05/08/2020 10:42 AM CDT Patient called for post hospital follow up, but he says company just arrived and asked if I would beable to call him this afternoon. I verbalized I would do so. Telephone Encounter - Ronda Fernandez R.N. - 05/08/2020 10:30 AM CDT SUBJECTIVE REASON FOR CALL Post-Hospital follow-up phone call with patient. Admission Date: 05/03/20 Discharge Date: 05/06/20 Discharge Diagnosis: Acute On Chronic Systolic (Congestive) Heart Failure (HCC) LACE+ score= 78 General Health Notes today that he is feeling better since discharged from the hospital. Concerns/questions: Patient has no questions or concerns. Symptom Review No new symptoms since discharge from the hospital. Activities of Daily Living Patient is independent with activities of daily living. Uses a cane to ambulate Has the patient had a fall since discharge: no. Has ambulation changed since hospitalization: no. Difficulty ambulating: yes, due to weakness and poor balance. The patient lives with spouse. Patient identified if needing assistance, he could depend on . Wounds/Incisions/Lines, Drains and Airways None Medication Status Current medication list was reviewed and updated as needed. Reports medication is managed by family member, his . But he helps as well. He uses a twice a day pill box. Medications concerns: none. Medication compliance for current medications: yes. High Risk Medications Controlled Substances: Name: Trazodone. Taking as instructed: yes. Experiencing side effects: no. This medication was added during this hospital stay: no.. Diabetic Medications: type: insulin. Home glucose monitoring: yes; frequency: 3 times a day; last completed: before lunch today; result patient's was unsure. Difficulty managing diabetes since discharge: no. Home Services Utilized The patient is not currently receiving home health services. Equipment/Supplies for Home Use None ordered Assessment/Plan I've been terribly weak, but I've been down to the mail and back today already. Next summer I'd like to do 5k so that will take gentle training and time to get to that. So that's a goal of mine. My biggest concerns is that I'm not sleeping well and I really didn't sleep at all last night. Part of it is that when I fell 3 weeks ago I hurt my rotator cuff on the side that I usually sleep on. My lungs feel pretty good. He is wearing compression stockings. A little LE edema, but nothing ofconcern to the patient. He and his were informed of red flags to look out for in terms of worsening CHF and who they should notify should they see those symptoms. 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 [place] , and currently has guests visiting so part of my conversation is with his Diallo. Checking blood sugars at least 3 times a day. Patient and his are currently paneled with a PCP in [place], but say it is very difficult to get in to see him or even talk to him on the phone. There is no openings for IM providers at [facility] in [place].They are hoping to establish with an IM provider in [place] as soon as they can get the provider at their upcoming [facility] to refer them. Follow-up Appointment PCP Follow-up appointment scheduled: yes; scheduled on 05/11/20. The patient plans to go to the appointment and has no concerns about getting there. Specialty Follow-up scheduled with urology on 05/25/20. Recommendations Referral actions: care coordination. Additional recommendations: home care instructions reinforced or provided. Disposition/Recommendation: referral for services Adult Medical Care Coordination. Education: patient/caller able to teach back. Caller agreeable to plan of care: yes documented in this encounter Plan of Treatment Not on filedocumented as of this encounter Visit Diagnoses Not on filedocumented in this encounter Additional Health Concerns Assessment Noted Time PHQ-9 Depression Total Score: 18 04/28/2018 11:27 AM C DT documented as of this encounter Care Teams Pin Chaser Relationship Specialty Start Date End Date Chris Billings M.B.B.S., M.D. PCP - General Family Medicine 01/10/20 05/21/[address] [place] [phone] documented as of this encounter
--- OUTSIDE RECORDS SUMMARY | 2022-05-21 11:28 | XMS_ITS | Encounter Summary ---
:1945 Author Organization [facility] Address [address] [place] [address] Care Team Providers Name Role Phone Chris Billings M.D. Primary Care Provider +[phone] Encounter Details Date Type Department Care Team Description 03/29/2020 Clinical Communication Department of Chris Terry [facility], Lorri Tavarez, Clinic, in [place] 300 [facility] 300 [facility] [place] [phone] Social History Tobacco Use Types Packs/Day Years [...] do you attend uatsdin or Never 2021 judaism services? Do you [...] have completed or the highest Martin, MEd, PLUMBING AND HEATING MECHANIC, CAYDEN) degree you have received? Sex Assigned at Date Recorded Male 05/21/2018 2:34 PM CDT documented as of this encounter Miscellaneous Notes Telephone Encounter - Dominique Zuluaga, C.M.A. - 03/29/2020 2:00 PM CDT See note, patient would like a phone visit instead of video due to not having portal access. Please review and decide if you want him scheduled for a phone visit. Telephone Encounter - Stacia Davenport - 03/29/2020 9:11 AM CDT Reason for Communication: NL called in on behalf of the patient. He is currently dealing with new shortness of breath and will be going through COVID testing today. Patient is not able to set up the portal for a video visit and would like to know if he can go through a phone call with Dr. Billings. Current : [phone] Can Nursing/Provider leave a detailed message: Yes Did the patient refuse triage through Nurse line? (for symptom based concerns): No Action Needed: Please call patient back and advise. Name of Medication (if relevant): documented in this encounter Plan of Treatment Not on filedocumented as of this encounter Visit Diagnoses Not on filedocumented in this encounter Additional Health Concerns Infection Onset Date Last Indicated Resolved Time COVID19 Pending 03/29/2020 03/29/2020 03/30/2020 4:56 AM CDT Assessment Noted Time PHQ-9 Depression Total Score: 18 04/28/2018 11:27 AM C DT documented as of this encounter Care Teams Audio Visual Collections Coordinator Relationship Specialty Start Date End Date Chris Billings M.B.B.S., M.D. PCP - General Family Medicine 01/10/20 05/21/[address] [place] [phone] documented as of this encounter
--- OUTSIDE RECORDS SUMMARY | 2022-05-21 11:28 | XMS_ITS | Encounter Summary ---
:1945 Author Organization [facility] Address [address] [place] [address] Care Team Providers Name Role Phone Chris Billings M.D. Primary Care Provider +[phone] Encounter Details Date Type Department Care Team Description 03/20/2020 Orders Only Division of Ran Edaurdo Pancreatitis Chronic (HCC) (Primary Dx); Gastroenterology in [address] [facility] Clinical Research Exam [place], [place] [address] [facility] [address] [place] [address] [phone] Social History Tobacco Use Types Packs/Day Years [...] have completed or the highest Martin, MEd, PRODUCT DEVELOPMENT COORDINATOR, CAYDEN) degree you have received? Sex Assigned at Date Recorded Male 05/21/2018 2:34 PM CDT documented as of this encounter Plan of Treatment Not on filedocumented as of this encounter Visit Diagnoses Diagnosis Pancreatitis Chronic (HCC) - Primary Clinical Research Exam documented in this encounter Additional Health Concerns Assessment Noted Time PHQ-9 Depression Total Score: 18 04/28/2018 11:27 AM C DT documented as of this encounter Care Teams Sexual Health Physician Relationship Specialty Start Date End Date Chris Billings M.B.B.S., Rhoda. PCP - General Family Medicine 01/10/20 05/21/[address] [place] [phone] documented as of this encounter
--- OUTSIDE RECORDS SUMMARY | 2022-05-21 11:28 | XMS_ITS | Encounter Summary ---
:1945 Author Organization [facility] Address [address] [place] [address] Care Team Providers Name Role Phone Chris Billings M.D. Primary Care Provider +[phone] Encounter Details Date Type Department Care Team Description 03/13/2020 Hospital Encounter Department of Parminder, Pancreat itis Chronic Laboratory Medicine Rhoda Stein (HCC) and Pathology, [address] [place] [address], in [place], [place] [address] [place] [address] [place], [place] (Work) [phone] Social History Tobacco Use Types Packs/Day Years [...] or relatives? How often do you attend zoroastrian or Never 2021 hinduism services? Do you belong to any clubs or No 10/09/2021 organizations such as zoroastrian groups, unions, fraternal or athletic groups, or [...] completed or the highest Martin, MEd, CONSTRUCTION RIGGER, CAYDEN) degree you have received? Sex Assigned [...] (six) hours as powdr breath activated needed. budesonide-formoteroL Inhale 2 puffs 2 1 Inhaler 11 12/16/19 20 06/30/2020 (SYMBICORT) 160-4.5 (two) times a day. mcg/actuation Start at 1 puff inhalerIndications: twice daily x 4 Asthma Extrinsic weeks, then 2 puffs Moderate (HCC) twice daily if tolerated. chlorthalidone Take 1 tablet (25 mg 90 tablet 3 11/24/2018 03/15/2020 (HYGROTEN) 25 mg tablet total) by mouth daily. dilTIAZem (CARDIZEM) 60 Take 1 tablet (60 mg 60 tablet 3 03/15/2020 mg tabletIndications: total) by mouth once Atherosclerotic Heart for 1 dose. 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 6 kit 3 8 05/01/2020 (FREESTYLE ILEANA 14 DAY SENSOR) kit gemfibroziL (LOPID) 600 Take 1 tablet by 0 200811/06/2021 mg tablet mouth. insulin aspart U-100 Inject 20-25 Units 0 05/06/2020 (NovoLOG FlexPen) 100 under the skin as unit/mL injection needed. With meals insulin glargine Inject 20 Units 0 01/31/201504/2020 (LANTUS) 100 unit/mL under the skin at injection bedtime. insulin NPH and regular LW Addl 0 11/15/2008 0 05/04/2020 human (HumuLIN 70/30 Instr:Indicated for: U-100 KwikPen) 100 Diabetes unit/mL (70-30) injection isosorbide mononitrate Take 1 tablet (30 mg 90 tablet 3 05/01/2020 (IMDUR) 30 mg 24 hr total) by mouth tabletIndications: daily. 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 tablet LORazepam (ATIVAN) 0.5 Take 1 tablet (0.5 15 tablet 0 01/2103/15/2020 mg tablet mg total) by mouth at bedtime as needed for anxiety for up to 15 days. losartan (for_COZAAR) Take 50 mg by mouth 0 10/1305/06/2020 100 mg tablet daily. metFORMIN (GLUMETZA) Take 1 tablet (1,000 180 tablet 3 06/2205/06/2020 1,000 mg 24 hr tablet mg total) by mouth 2 (two) times a day with meals. metFORMIN (GLUMETZA) Take 1 tablet by 0 9 11/07/2021 1,000 mg 24 hr tablet mouth daily. metoprolol succinate Take 0.5 tablets 45 tablet 0 0 05/01/2020 (TOPROL-XL) 25 mg 24 hr (12.5 mg total) by tablet mouth daily. Do not crush or chew. omega-3 fatty acids-fish Take 1 g by mouth 0 03/15/2020 oil 300-1,000 mg capsule daily. documented as of this encounter Miscellaneous Notes Result Encounter Note - Emil Zurita M.D. - 03/26/2020 11:00 PM CDT Vitamin D level is now normal. Hemoglobin A1c remains elevated. He has been seen by our colleagues in Diabetes Clinic and should follow their recommendations to optimize glycemic control. documented in this encounter Plan of Treatment Not on filedocumented as of this encounter Procedures Procedure Name Priority Date/Time Associated Diagnosis Comme nts 25-HYDROXYVITAMIN Routine 03/13/2020 12:19 Pancreatitis Chroni c Results for this D2 AND D3, S PM CDT ([facility]) procedure are i n the results section. HEMOGLOBIN A1C, B Routine 03/13/2020 12:19 Pancreatitis Chroni c Results for this PM CDT (HCC) procedure are i n the results section. documented in this encounter Results 25-Hydroxyvitamin D2 and D3 (03/13/2020 12:19 PM CDT) athologist Signature 25-Hydroxy D2 <4.0 ng/mL 03/14/2020 [facility] 2:46 PM CDT 25-Hydroxy D3 30 ng/mL 03/14/2020 [facility] 2:46 PM CDT 25-Hydroxy D 30 ng/mL 03/14/2020 [facility] Total 2:46 PM CDT Comment: ----REFERENCE VALUE---- 25-HYDROXY D TOTAL (D2+D3) Optimum level s in the healthy population are 20-50, patients with bone disease may benefit from higher levels within this r stan. ----ADDITIONAL INFORMATION---- This test was developed and its performa nce characteristics determined by [facility] in a manner consistent with CLIA requirements. This test has not been cleared or approved by the [place] d and Drug Administration. Specimen Anatomical Collection Method Collection Time Receive d Time (Source) Location / / Volume Laterality Blood (Blood, 03/13/2020 12:19 03/14/2020 7:41 Venous) PM CDT AM CDT Emil Zurita M.D. LAB BLOOD ADD-ON Performing Organization Address City/State/ZIP Code Phon e Number [facility] [address] [place], [place] [address] SUPPORT [facility] [place] [address] Laboratory Medicine and Pathology [address] [place] (ABNORMAL) Hemoglobin A1c (03/13/2020 12:19 PM CDT) athologist Signature Hemoglobin A1c, 9.8 (H) 4.0 - 5.6 03/13/2020 DTL B % 1:11 PM CDT Comment: Hemoglobin A1c values greater than or eq ual to 6.5 percent are diagnostic for diabetes mellitus. ?? Diagnosis should be confirmed by repeat testing. ??In diabet ic patients, HbA1c goals should be discussed with healthcar e provider. Specimen Anatomical Collection Method Collection Time Receive d Time (Source) Location / / Volume Laterality Blood (Blood, 03/13/2020 12:19 03/13/2020 Venous) PM CDT 12:43 PM CDT Emil Zurita M.D. LAB BLOOD ADD-ON Performing Organization Address City/State/ZIP Code Phon e Number [facility] - [address] [place], [place] [address] [facility] [place] [address] [facility] [address] documented in this encounter Visit Diagnoses Diagnosis Pancreatitis Chronic (HCC) documented in this encounter Additional Health Concerns Assessment Noted Time PHQ-9 Depression Total Score: 18 04/28/2018 11:27 AM C DT documented as of this encounter Care Teams Terminal Operations Supervisor Relationship Specialty Start Date End Date Chris Billings M.B.B.S., M.D. PCP - General Family Medicine 01/10/20 05/21/[address] [place] [phone] documented as of this encounter
--- OUTSIDE RECORDS SUMMARY | 2022-05-21 11:28 | XMS_ITS | Encounter Summary ---
:1945 Author Organization [facility] Address [address] [place] [address] Care Team Providers Name Role Phone Chris Billings M.D. Primary Care Provider [phone] Encounter Details Date Type Department Care Team Description 04/20/2020 Clinical Communication Department of Rachael Mendez Cardiovascular Diseases R.NMauro in [facility] [address] [facility] [address] [place] [phone] Social History Tobacco Use Types Packs/Day Years [...] or relatives? How often do you attend zoroastrianism or Never 2021 jain services? Do you belong to any clubs or No 10/09/2021 organizations such as zoroastrianism groups, unions, fraternal or athletic groups, or [...] have completed or the highest Martin, MEd, PHONE CIRCUIT OPERATOR, CAYDEN) degree you have received? Sex Assigned at Date Recorded Male 05/21/2018 2:34 PM CDT documented as of this encounter Miscellaneous Notes Telephone Encounter - Rachael Mendez R.N. - 04/20/2020 8:34 AM CDT Name of person contacted: Patient Relationship to patient: Not applicable Call back number: N/A Supervisor Food Checkers And Cashiers: Not applicable Information provided: Reviewed Dr. Bañuelos's note with patient. general merchandise salesperson/patient received and understood education/information provided: Yes general merchandise salesperson/patient agreed to the Plan of Care: Yes Patient had complaints on ongoing worsening fatigue. Patient is concerned his is overmedicated. Dr. Billings would you be willing to enter an order so the patient can meet with a pharmacist outpatient for a medication therapy management consult? Telephone Encounter - Rachael Mendez R.N. - 04/20/2020 8:34 AM CDT ----- Message from Koko Bañuelos M.D. sent at 04/19/2020 1:24 PM CDT ----- Please call the patient with echocardiographic results. His heart function slightly decreased from the prior study. We will discussed with the patient the results in more detail at his next follow-up appointment with Cardiology. ANDREW Keenan. The patient has follow-up appointment with you next week. There may be room for improvement in his heart failure therapy (increasing his metoprolol and potentially discontinuing diltiazem). His coronary anatomy was reassuring, particularly if we take into account the FFRct which was also performed. However, in case he is having worsening symptoms thought to be ischemic in etiology, we may need to discuss the possibility of invasive assessment. Otherwise, continue medical therapy. Thank you, Koko documented in this encounter Plan of Treatment Not on filedocumented as of this encounter Visit Diagnoses Not on filedocumented in this encounter Additional Health Concerns Infection Onset Date Last Indicated Resolved Time COVID19 Pending 05/03/2020 05/03/2020 05/03/2020 10:07 PM CDT Assessment Noted Time PHQ-9 Depression Total Score: 18 04/28/2018 11:27 AM C DT documented as of this encounter Care Teams Graphic User Interface Designer Relationship Specialty Start Date End Date Chris Billings M.B.B.S., M.D. PCP - General Family Medicine 01/10/20 05/21/[address] [place] [address] [place] [phone] documented as of this encounter
--- OUTSIDE RECORDS SUMMARY | 2022-05-21 11:28 | XMS_ITS | Encounter Summary ---
:1945 Author Organization [facility] Address [address] [place] [address] Care Team Providers Name Role Phone Chris Billings M.D. Primary Care Provider [phone] Reason for Referral Outpatient (Routine) - Closed Specialty Diagnoses / Procedures Referred By Contact Refer red To Contact Diagnoses Bradycardia Shlomo Ojeda APRN, [facility] [place] Procedures ECG Heart rhythm monitor (Holter) C.N.P. [address] [place] [phone] Referral ID Status Reason Start Date Expiration Date Visits Requ ested Visits Authorized [id number] Closed 05/01/2020 05/01/2021 1 1 Reason for Visit Outpatient (Routine) - Closed Specialty Diagnoses / Procedures Referred By Contact Refer red To Contact Diagnoses Bradycardia Shlomo Ojeda APRN, [place] Procedures ECG Heart rhythm monitor (Holter) C.N.P. [address] [place] [phone] Referral ID Status Reason Start Date Expiration Date Visits Requ ested Visits Authorized [id number] Closed 05/01/2020 05/01/2021 1 1 Encounter Details Date Type Department Care Team Description 05/01/2020 Hospital Encounter Department of Shlomo Ojeda Brady cardia Cardiovascular Diseases in TRANSONIC ENGINEER, C.N.P. [place], [place] [address] [place], [place] [phone] Social History Tobacco Use Types Packs/Day Years [...] do you attend anglican or Never 2021 baptist services? Do you [...] have completed or the highest Martin, MEd, TRENCH DIGGER HELPER, CAYDEN) degree you have received? Sex [...] puffs Moderate (HCC) twice daily if tolerated. furosemide (LASIX) 20 mg Take 1 tablet (20 mg 30 tablet 2 0 05/01/2020 05/06/2020 tablet total) by mouth daily with breakfast. gemfibroziL (LOPID) 600 Take 1 tablet by [...] (70-30) injection isosorbide mononitrate Take 1 tablet (60 mg 0 11/201902/22/2021 (IMDUR) 60 mg 24 hr total) by mouth tabletIndications: daily. 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 As directed per DR capsule wqltio-drlbdqik-gxcqbaf Take 1 capsule by 0 10/12/2020 (CREON) mouth as needed for 6,000-19,000-30,[address] capsule lisinopriL Take 1 tablet by 0 11/15/2008 11/06/19 22 (PRINIVIL,ZESTRIL) 10 mg mouth daily. tablet losartan (for_COZAAR) Take 50 mg by mouth [...] tablet daily. Do not crush or chew. documented as of this encounter Plan of Treatment Not on filedocumented as of this encounter Procedures Procedure Name Priority Date/Time Associated Diagnosis Comme nts HOLTER MONITOR - IN Routine 05/01/2020 4:03 PM Bradycardia Re sults for this CLINIC IN PROCESSING INSTRUCTOR CDT procedure are in the results section. documented in this encounter Results HOLTER MONITOR - IN CLINIC IN PROCESSING INSTRUCTOR (05/01/2020 4:03 PM CDT) [facility] Method Time Signature AF Count 0 count HOLTER SENTINEL Recording Date HOLTER SENTINEL VE Percent 33 percent HOLTER Beats SENTINEL Max Heart Rate 94 bpm HOLTER SENTINEL Max Heart Rate [id number] HOLTER Time SENTINEL Tachycardia 0 count HOLTER Runs SENTINEL VT Runs 21 count HOLTER SENTINEL VE Max Per [id number] HOLTER Hour Time SENTINEL SVE Max Per 19 count HOLTER Hour SENTINEL VT Longest 4 beats HOLTER SENTINEL SVE Percent 0 percent HOLTER Beats SENTINEL VT Max Rate [id number] HOLTER Time SENTINEL Bradycardia 0 count HOLTER Runs SENTINEL Min Heart Rate 60 bpm HOLTER SENTINEL Holter Pauses 0 count HOLTER SENTINEL SVT Runs 0 count HOLTER SENTINEL VT Longest [id number] HOLTER Time SENTINEL Min Heart Rate [id number] HOLTER Time SENTINEL VE Total Beats 33,762 count HOLTER SENTINEL SVE Total 180 count HOLTER Beats SENTINEL Analysis Date 20,200,805 HOLTER SENTINEL VE Max Per 1,903 count HOLTER Hour SENTINEL Mean Heart 70 bpm HOLTER Rate SENTINEL VT Max Rate 134 bpm HOLTER SENTINEL SVE Max Per [id number] HOLTER Hour Time SENTINEL Specimen (Source) Anatomical Collection Method Collection Time Re ceived Time Location / / Volume Laterality 05/01/2020 4:02 PM CDT Narrative This result has an attachment that is no t available. Shlomo Ojeda APRN C.N.P. CV CARDIAC SERVICES PROCEDU RES Performing Organization Address City/State/ZIP Code Phon e Number HOLTER SENTINEL HOLTER SENTINEL NA documented in this encounter Visit Diagnoses Diagnosis Bradycardia documented in this encounter Additional Health Concerns Assessment Noted Time PHQ-9 Depression Total Score: 18 04/28/2018 11:27 AM C DT documented as of this encounter Care Teams Cardroom Worker Relationship Specialty Start Date End Date Chris Billings M.B.B.S., M.D. PCP - General Family Medicine 01/10/20 05/21/[address] [place] [address] [place] [phone] documented as of this encounter
--- OUTSIDE RECORDS SUMMARY | 2022-05-21 11:28 | XMS_ITS | Encounter Summary ---
:1945 Author Organization [facility] Address [address] [place] [address] Care Team Providers Name Role Phone Chris Billings M.D. Primary Care Provider [phone] Encounter Details Date Type Department Care Team Description 04/12/2020 Documentation Division of Gastroenterology Ran Vilchis in [facility] [address] [facility] [address] [place] [phone] Social History Tobacco Use Types Packs/Day Years [...] do you attend moravian or Never 2021 confucianist services? Do you [...] have completed or the highest Martin, MEd, BUSINESS DEVELOPMENT PROFESSIONAL, CAYDEN) degree you have received? Sex Assigned at Date Recorded Male 05/21/2018 2:34 PM CDT documented as of this encounter Plan of Treatment Not on filedocumented as of this encounter Visit Diagnoses Not on filedocumented in this encounter Additional Health Concerns Assessment Noted Time PHQ-9 Depression Total Score: 18 04/28/2018 11:27 AM C DT documented as of this encounter Care Teams Oil Exploration Engineer Relationship Specialty Start Date End Date Chris Billings M.B.B.S., M.D. PCP - General Family Medicine 01/10/20 05/21/[address] [place] [phone] documented as of this encounter
--- OUTSIDE RECORDS SUMMARY | 2022-05-21 11:28 | XMS_ITS | Encounter Summary ---
:1945 Author Organization [facility] Address [address] [place] [address] Care Team Providers Name Role Phone Chris Billings M.D. Primary Care Provider [phone] Reason for Visit Reason Comments COVID Nurse Line Encounter Details Date Type Department Care Team Description 04/28/2020 Nurse Triage Department of [facility] Johnson, DHRUV Santana Nurse Line Medicine, [facility] [place], [place] [address] [facility] [address] [place] [phone] Social History Tobacco Use Types Packs/Day Years [...] do you attend holiness or Never 2021 adventist services? Do you [...] have completed or the highest Martin, MEd, CLEANER SIGNS, CAYDEN) degree you have received? Sex Assigned at Date Recorded Male 05/21/2018 2:34 PM CDT documented as of this encounter Plan of Treatment Not on filedocumented as of this encounter Visit Diagnoses Not on filedocumented in this encounter Additional Health Concerns Assessment Noted Time PHQ-9 Depression Total Score: 18 04/28/2018 11:27 AM C DT documented as of this encounter Care Teams Center Director Lead Teacher Relationship Specialty Start Date End Date Chris Billings M.B.B.S., M.D. PCP - General Family Medicine 01/10/20 05/21/[address] [place] [address] [place] [phone] documented as of this encounter
--- OUTSIDE RECORDS SUMMARY | 2022-05-21 11:28 | XMS_ITS | Encounter Summary ---
:1945 Author Organization [facility] Address [address] [place] [phone] Care Team Providers Name Role Phone Chris Billings M.D. Primary Care Provider [phone] Reason for Referral Outpatient (Routine) - Closed Specialty Diagnoses / Procedures Referred By Contact Refer red To Contact Endocrinology Carlos Kendall M.D.[facility] Ph.D. [address] [place] [phone] Referral ID Status Reason Start Date Expiration Date Visits Requ ested Visits Authorized [id number] Closed 03/17/2020 03/17/2021 1 1 Reason for Visit Outpatient (Routine) - Closed Specialty Diagnoses / Procedures Referred By Contact Madelaine castillo To Contact Endocrinology Diagnoses Diabetes Mellitus Type 2 With Diabetic Neuropathy (HCC) Diarrhea Fatigue Emil Zurita M.D. [facility] [address] [place] [phone] Referral ID Status Reason Start Date Expiration Date Visits Requ ested Visits Authorized [id number] Closed 02/17/2020 02/16/2021 1 1 Encounter Details Date Type Department Care Team Description 03/17/2020 Comprehensive Visit Division of Carlos Kendall Diabetes Mellitus Type 2 With Diabetic Neuropathy (HCC); [facility] [place] [facility] Fatigue [address] [place] [phone] Social History Tobacco Use Types Packs/Day Years [...] or relatives? How often do you attend orthodoxy or Never 2021 christianity services? Do you belong to any clubs or No 10/09/2021 organizations such as orthodoxy groups, unions, fraternal or athletic groups, or [...] completed or the highest Martin, MEd, [employer], [place]) degree you have received? Sex Assigned at Date Recorded Male 05/21/2018 2:34 PM CDT documented as of this encounter Patient Instructions Patient InstructionsCarlos Kendall M.D., Ph.D. - 03/17/2020 9:00 AM CDT He has longstanding type 2 diabetes mellitus with the recent evidence of weekly or every 10 days hypoglycemia especially in the night. This is a serious problem in an elderly person like him with a history of heart disease. I told him a high priority is to avoid hypoglycemia but at the same time his hemoglobin A1c documents overall poor glycemic control. The important question that I do not have a clear idea is whether he requires this multiple daily injection of insulin. It is possible that with his recurrent pancreatitis his beta cells are not secreting much insulin with low reserve. We will check that by checking his C-peptide level. If he has a reasonable insulin reserve we may consider addinga oral medication such as SG L2 inhibitor and the reduce insulin dose and frequency so that the we can achieve a glucose level between 100-150 mg/dl. I would rather have his glucose on the more with the high side than low side because hypoglycemia with the associated sympathetic response a including when he is experiencing such as rapid heart rate and perhaps increase in blood pressure could be damaging in terms of precipitating a cardiac arrhythmia or heart attack or even a stroke. Secondly he although he seems to have some early memory issues and hypoglycemia does not help that. He is very sure that the his recent glucose levels are much better and hemoglobin A1c does not reflect what is monitoring at home. Since hemoglobin A1c is an average of 3 months of glucose level I ordered a fructosamine to confirm whether he is achieving better controlled since he has better handle onhis eating habits now. Currently it is not unclear whether his triglycerides are well controlled which is important from the point of view of preventing pancreatitis. I have therefore ordered a lipid levels also along with the HIS ring creatinine. We discussed about the importance of him remaining physically active and he agreed with that and he told me that his daughter who is a doctor also always instruct him to be physically active. He seems to be very motivated for that. I will review him once Ihave the results in about 2-3 weeks time. At that time will make a decision about the a definitive management of his diabetes documented in this encounter Consult Notes Carlos Kendall M.D., Ph.D. - 03/17/2020 9:00 AM CDT Endocrinology, Diabetes, Metabolism, and Nutrition Initial Consultation REFERRAL Emil Zurita M.D. Date of service: 03/17/2020 Provider: Carlos Kendall M.D., Ph.D. SUBJECTIVE CHIEF COMPLAINT / REASON FOR VISIT Jonnathan Costa is a 74 y.o. male who presents for evaluation of diabetes mellitus HISTORY OF PRESENT ILLNESS I reviewed this 74-year-old with a history of diabetes mellitus going back to 1989.He is currently taking Lantus 10-20 units in the evening and variable doses of aspart insulin beforehis meal. He states that he takes approximately 8 units of as part insulin but the dose is determineby how much he eats. His eating habit also is variable with the many days he takes an early breakfast is mostly light breakfast and a evening meal sometime closer to 5:00 5:00 p.m. he states that the recently he has been getting hypoglycemic during the night at about 130 by 2:00 a.m. in the morning. He states that he checks his glucose before going to bed which is usually around 150 but takes Lantus before that and the dose is determine by his glucose levels. When you get hypoglycemia he become shaky perspire and the become very anxious and hungry. He has a history of chronic pancreatitis and he takes pancreatic enzyme supplementation with his meal. He states that he get the some numbness and tingling of the feet but is not bothering him too much. He has not seen an form presser for a while but the his form presser is living very close to his place and would make an appointment to see him. He has a history of atherosclerotic heart disease but has no angina. He is being treated for hypertension and he states that he was on many medication and his family doctor discontinued some of them and is feeling much better. He also was being investigated for fatigue including thyroid function test. He told me that the his morning glucose usually ranges between 180 to something going to even 280 but recently it has been mostly 180-200. He did not bring a any documentation of his glucose monitoringat home The following portions of the patient's history were reviewed and updated as appropriate: allergies,current medications, family history, medical history, social history, surgical history, problem list. OBJECTIVE His pulse rate is 66 per minute blood pressure 120 4 x 60 mm of mercury weight is 102 kg with a BMI of 28.6 He has certainly evidence of 0 overall Ma sarcopenia with some modest abdominal adiposity. He appears to have some memory issues but that did not stop him having a very meaningful conversation and giving a good history LABORATORY RESULTS: The only laboratory results done recently is his hemoglobin A1c which is 9.8 abdulkadir TSH which is 5.0. He also had a glucose measured on 03/07/2020 which is 219 but seems to be a capillary glucose measurement ASSESSMENT / PLAN #1 Diabetes Mellitus Type 2 With Diabetic Neuropathy (HCC) He has longstanding type 2 diabetes mellitus with the recent evidence of weekly or every 10 days hypoglycemia especially in the night. This is a serious problem in an elderly person like him with a history of heart disease. I told him a high priority is to avoid hypoglycemia but at the same time his hemoglobin A1c documents overall poor glycemic control. The important question that I do not have a clear idea is whether he requires this multiple daily injection of insulin. It is possible that with his recurrent pancreatitis his beta cells are not secreting much insulin with low reserve. We will check that by checking his C-peptide level. If he has a reasonable insulin reserve we may consider addinga oral medication such as SG L2 inhibitor and the reduce insulin dose and frequency so that the we can achieve a glucose level between 100-150 mg/dl. I would rather have his glucose on the more with the high side than low side because hypoglycemia with the associated sympathetic response a including when he is experiencing such as rapid heart rate and perhaps increase in blood pressure could be damaging in terms of precipitating a cardiac arrhythmia or heart attack or even a stroke. Secondly he although he seems to have some early memory issues and hypoglycemia does not help that. He is very sure that the his recent glucose levels are much better and hemoglobin A1c does not reflect what is monitoring at home. Since hemoglobin A1c is an average of 3 months of glucose level I ordered a fructosamine to confirm whether he is achieving better controlled since he has better handle onhis eating habits now. Currently it is not unclear whether his triglycerides are well controlled which is important from the point of view of preventing pancreatitis. I have therefore ordered a lipid levels also along with the HIS ring creatinine. We discussed about the importance of him remaining physically active and he agreed with that and he told me that his daughter who is a doctor also always instruct him to be physically active. He seems to be very motivated for that. I will review him once Ihave the results in about 2-3 weeks time. 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 documented in this encounter Plan of Treatment Scheduled Referrals Name Type Priority Associated Order Schedule Diagnoses Endocrinology office Outpatient Referral Routine Expected: visit (clinic) 03/24/2020 (Approximate), Expires: 03/17/2023 documented as of this encounter Results (ABNORMAL) Fructosamine (04/12/2020 8:14 AM CDT) athologist Signature Fructosamine, 331 (H) 200 - 285 04/13/2020 DT S mcmol/L 7:36 AM CDT Specimen Anatomical Collection Method Collection Time Receive d Time (Source) Location / / Volume Laterality Blood (Blood, 04/12/2020 8:14 AM 04/13/20 20 7:07 Venous) CDT AM CDT Carlos Kendall M.D., Ph.D. LAB BLOOD ADD-ON Performing Organization Address City/State/ZIP Code Phon e Number [facility] - [address] [place], [place] [address] [facility] [place] [address] Laboratories-[facility] [address] C-Peptide (04/12/2020 8:14 AM CDT) athologist Signature C-Peptide, S 3.1 1.1 - 4.4 04/13/2020 [facility] ng/mL 8:56 AM CDT Specimen Anatomical Collection Method Collection Time Receive d Time (Source) Location / / Volume Laterality Blood (Blood, 04/12/2020 8:14 AM 04/13/20 20 8:20 Venous) CDT AM CDT Carlos Kendall M.D., Ph.D. LAB BLOOD ADD-ON Performing Organization Address City/State/ZIP Code Phon e Number [facility] [address] [place], [place] [address] [place] [address] CENTER [facility] [place] [address] Laboratory Medicine and Pathology [address] [place] Potassium (04/12/2020 8:14 AM CDT) P athologist Signature Potassium, P 4.2 3.6 - 5.2 04/12/2020 [place] mmol/L 9:08 AM CDT Specimen Anatomical Collection Method Collection Time Receive d Time (Source) Location / / Volume Laterality Blood (Blood, 04/12/2020 8:14 AM 04/12/20 20 8:31 Venous) CDT AM CDT Carlos Kendall M.D., Ph.D. LAB BLOOD ADD-ON Performing Organization Address City/State/ZIP Code Phon e Number [facility]- [address] [place] [address] [place] [address] System in [place] [address] Sodium (04/12/2020 8:14 AM CDT) P athologist Signature Sodium, P 137 135 - 145 04/12/2020 9:08 [place] mmol/L AM CDT Specimen Anatomical Collection Method Collection Time Receive d Time (Source) Location / / Volume Laterality Blood (Blood, 04/12/2020 8:14 AM 04/12/20 20 8:31 Venous) CDT AM CDT Carlos Kendall M.D., Ph.D. LAB BLOOD ADD-ON Performing Organization Address City/State/ZIP Code Phon e Number [facility]- [address] [place] [address] [place] [address] System in [place] [address] [facility] (ABNORMAL) CBC without Differential (04/12/2020 8:14 AM CDT) Patholo gist Method Time Signature Hemoglobin 10.5 (L) 13.2 - 04/12/2020 [place] 16.6 g/dL 8:35 AM CDT Hematocrit 31.2 (L) 38.3 - 04/12/2020 [place] 48.6 % 8:35 AM CDT Erythrocytes 3.52 (L) 4.35 - 04/12/2020 [place] 5.65 8:35 AM CDT x10(12)/L MCV 88.6 78.2 - 04/12/2020 [place] 97.9 fL 8:35 AM CDT RBC Distrib Width 13.0 11.8 - 04/12/2020 [place] 14.5 % 8:35 AM CDT Platelet Count 247 135 - 317 04/12/2020 [place] x10(9)/L 8:35 AM CDT Leukocytes 6.5 3.4 - 9.6 04/12/2020 [place] x10(9)/L 8:35 AM CDT Specimen Anatomical Collection Method Collection Time Receive d Time (Source) Location / / Volume Laterality Blood (Blood, 04/12/2020 8:14 AM 04/12/20 20 8:31 Venous) CDT AM CDT K Randy Kendall M.D., Ph.D. LAB BLOOD ADD-ON Performing Organization Address City/State/ZIP Code Phon e Number [facility]- [address] [place] [address] [place] [address] System in [place] [address] [facility] (ABNORMAL) Lipid Panel (04/12/2020 8:14 AM CDT) P athologist Signature Cholesterol, 133 mg/dL 04/12/2020 [facility] Total 9:08 AM CDT Comment: ----REFERENCE VALUE---- Desirable: < 200 Borderline high: 200 - 239 High: > or = 240 Triglycerides 176 (H) mg/dL 04/12/2020 9:08 AM CDT [place] T Comment: ----REFERENCE VALUE---- Normal: <150 Borderline high: 150-199 High: 200-499 Very high: > or =500 Cholesterol, HDL 27 (L) >=40 mg/dL 04/12/2020 9:08 AM CDT [facility] Calculated LDL 71 mg/dL 04/12/2020 9:08 AM CDT [facility] Comment: ----REFERENCE VALUE---- Desirable: <100 Above Desirable: 100-129 Borderline high: 130-159 High: 160-189 Very high: > or =190 Cholesterol, Non-HDL, Calculated 106 mg/dL 020 9:08 AM CDT [facility] Comment: ----REFERENCE VALUE---- Desirable: <130 Above Desirable: 130-159 Borderline high: 160-189 High: 190-219 Very high: > or =220 Specimen Anatomical Collection Method Collection Time Receive d Time (Source) Location / / Volume Laterality Blood (Blood, 04/12/2020 8:14 AM 04/12/20 20 8:31 Venous) CDT AM CDT Carlos Kendall M.D., Ph.D. LAB BLOOD ADD-ON Performing Organization Address City/State/ZIP Code Phon e Number [facility]- [address] [address] [place] [address] System in [place] [address] ALT (Alanine Aminotransferase) (04/12/2020 8:14 AM CDT) [facility] gist Method Time Signature Alanine 16 7 - 55 04/12/2020 [place] Aminotransferase U/L 9:08 AM CDT (ALT), P Specimen Anatomical Collection Method Collection Time Receive d Time (Source) Location / / Volume Laterality Blood (Blood, 04/12/2020 8:14 AM 04/12/20 20 8:31 Venous) CDT AM CDT Carlos Kendall M.D., Ph.D. LAB BLOOD ADD-ON Performing Organization Address City/State/ZIP Code Phon e Number [facility]- [address] [place] [facility] [place] [address] [place] [address] System in [place] [address] AST (Aspartate Aminotransferase) (04/12/2020 8:14 AM CDT) Patholo gist Method Time Signature Aspartate 17 8 - 48 04/12/2020 [place] Aminotransferase U/L 9:08 AM CDT (AST), P Specimen Anatomical Collection Method Collection Time Receive d Time (Source) Location / / Volume Laterality Blood (Blood, 04/12/2020 8:14 AM 04/12/20 8:31 Venous) CDT AM CDT Carlos Kendall M.D., Ph.D. LAB BLOOD ADD-ON Performing Organization Address City/State/[facility] Code Phon e Number [facility]- [address] [facility] [place] [address] [place] [address] System in [place] [facility] (ABNORMAL) Creatinine with Estimated GFR (04/12/2020 8:14 AM CDT) Analysis Performed At Patho logist Time Signature Creatinine 1.42 (H) 0.74 - 04/12/2020 [place] 1.35 mg/dL 9:08 AM CDT eGFR-Black/Afri 55 (L) >=60 04/12/2020 [facility] can Maltese mL/min/BSA 9:08 AM CDT Comment: ----ADDITIONAL INFORMATION---- Estimated GFR calculated using the 2009 CKD_EPI creatinine equation. eGFR Non-Black/ 48 (L) >=60 mL/min/BSA 04/12/2020 9:08 AM CDT [facility] M[place]ese Comment: ----ADDITIONAL INFORMATION---- Estimated GFR calculated using the 2009 CKD_EPI creatinine equation. Specimen Anatomical Collection Method Collection Time Receive d Time (Source) Location / / Volume Laterality Blood (Blood, 04/12/2020 8:14 AM 04/12/20 8:31 Venous) CDT AM CDT Carlos Kendall M.D., Ph.D. LAB BLOOD ADD-ON Performing Organization Address City/State/ZIP Code Phon e Number [facility]- [address] [facility] [place] [address] [place] [address] System in [place] [address] (ABNORMAL) Hemoglobin A1c (04/12/2020 8:14 AM CDT) Analysis Performed At Patho logist Time Signature Hemoglobin A1c, 10.3 (H) 4.2 - 5.6 04/12/2020 [facility] B % 8:45 AM CDT Comment: Hemoglobin A1c values greater than or eq ual to 6.5 percent are diagnostic for diabetes mellitus. ?? Diagnosis should be confirmed by repeat testing. ??In diabet ic patients, HbA1c goals should be discussed with healthcar e provider. Specimen Anatomical Collection Method Collection Time Receive d Time (Source) Location / / Volume Laterality Blood (Blood, 04/12/2020 8:14 AM 04/12/20 8:31 Venous) CDT AM CDT Authorizing Provider Result Deloris Kendall M.D., Ph.D. LAB BLOOD ADD-ON Performing Organization Address City/[facility]/ZIP Code Phon e Number [facility]- [address] [place] [address] [place] [address] System in [place] [address] [facility] (ABNORMAL) Glucose, Fasting (04/12/2020 8:14 AM CDT) P athologist Signature Glucose, P 541 (CH) 70 - 100 04/12/2020 [facility] mg/dL 10:05 AM CDT Last Intake 1 hr 04/12/2020 [facility] 8:31 AM CDT Specimen Anatomical Collection Method Collection Time Receive d Time (Source) Location / / Volume Laterality Blood (Blood, 04/12/2020 8:14 AM 04/12/20 8:31 Venous) CDT AM CDT Authorizing Provider Result Deloris Kendall M.D., Ph.D. LAB BLOOD NON ADD-ON Performing Organization Address City/State/ZIP Code Phon e Number [facility]- [address] [place] [address] [place] [address] System in [place] [address] [facility] documented in this encounter Visit Diagnoses Diagnosis 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) Diarrhea Fatigue documented in this encounter Additional Health Concerns Assessment Noted Time PHQ-9 Depression Total Score: 18 04/28/2018 11:27 AM C DT documented as of this encounter Care Teams Priming Powder Premix Blender Relationship Specialty Start Date End Date Chris Billings M.B.B.S., M.D. PCP - General Family Medicine 01/10/20 05/21/[address] [place] [address] [id number] documented as of this encounter
--- OUTSIDE RECORDS SUMMARY | 2022-05-21 11:28 | XMS_ITS | Encounter Summary ---
:1945 Author Organization [facility] Address [address] [place] [address] Care Team Providers Name Role Phone Chris Billings M.D. 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 Sex Assigned [...] puffs Moderate (HCC) twice daily if tolerated. flash glucose scanning Use as directed 1 each 0 09/18/20 18 05/01/2020 reader (FREESTYLE ILEANA 14 DAY READER) [facility] flash glucose sensor Use as directed. 6 [...] by mouth tabletIndications: daily. 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 Do not crush or chew. documented as of this encounter Plan of Treatment Not on filedocumented as of this encounter Procedures Procedure Name Priority Date/Time Associated Comments Diagnosis LIPID PANEL, S Routine 04/12/2020 8:14 Diabetes Mellitus Resul ts for this AM CDT Type 2 With procedure are i n Diabetic the results Neuropathy (HCC) section. FRUCTOSAMINE, S/P Routine 04/12/2020 8:14 Diabetes Mellitus Re sults for this AM CDT Type 2 With procedure are i n Diabetic the results Neuropathy (HCC) section. C-PEPTIDE, S Routine 04/12/2020 8:14 Diabetes Mellitus Results for this AM CDT Type 2 With procedure are i n Diabetic the results Neuropathy (HCC) section. CBC WITHOUT Routine 04/12/2020 8:14 Diabetes Mellitus Results for this DIFFERENTIAL, B AM CDT Type 2 With procedure ar e in Diabetic the results Neuropathy (HCC) section. ALANINE AMINOTRANSFERASE Routine 04/12/2020 8:14 Diabetes Cleo itus Results for this (ALT), S/P AM CDT Type 2 With procedure are i n Diabetic the results Neuropathy (HCC) section. ASPARTATE Routine 04/12/2020 8:14 Diabetes Mellitus Results for this AMINOTRANSFERASE (AST), AM CDT Type 2 With proc edure are in S/P Diabetic the results Neuropathy (HCC) section. T4 (THYROXINE), FREE, S Routine 04/12/2020 8:14 Fatigue R esults for this AM CDT procedure are i n the results section. T4 (THYROXINE), TOT Routine 04/12/2020 8:14 Fatigue Resul ts for this ONLY, S AM CDT procedure are i n the results section. SODIUM, S/P Routine 04/12/2020 8:14 Diabetes Mellitus Results for this AM CDT Type 2 With procedure are i n Diabetic the results Neuropathy (HCC) section. POTASSIUM, S/P Routine 04/12/2020 8:14 Diabetes Mellitus Resul ts for this AM CDT Type 2 With procedure are i n Diabetic the results Neuropathy (HCC) section. HEMOGLOBIN A1C, B Routine 04/12/2020 8:14 Diabetes Mellitus Re sults for this AM CDT Type 2 With procedure are i n Diabetic the results Neuropathy (HCC) section. GLUCOSE, FASTING, S/P Routine 04/12/2020 8:14 Diabetes Mellitu s Results for this AM CDT Type 2 With procedure are i n Diabetic the results Neuropathy (HCC) section. CREATININE WITH EGFR, Routine 04/12/2020 8:14 Diabetes Mellitu s Results for this S/P AM CDT Type 2 With procedure are i n Diabetic the results Neuropathy (HCC) section. documented in this encounter Results (ABNORMAL) Fructosamine (04/12/2020 8:14 AM CDT) athologist Signature Fructosamine, 331 (H) 200 - 285 04/13/2020 DT S mcmol/L 7:36 AM CDT Specimen Anatomical Collection Method Collection Time Receive d Time (Source) Location / / Volume Laterality Blood (Blood, 04/12/2020 8:14 AM 04/13/20 20 7:07 Venous) CDT AM CDT Authorizing Provider Result Deloris Kendall M.D., Ph.D. LAB BLOOD ADD-ON Performing Organization Address City/[facility]/ZIP Code Phon e Number [facility] - [address] [place], [place] [address] [place] [address] Laboratories-[facility] [address] C-Peptide (04/12/2020 8:14 AM CDT) athologist Signature C-Peptide, S 3.1 1.1 - 4.4 04/13/2020 SDS ng/mL 8:56 AM CDT Specimen Anatomical Collection Method Collection Time Receive d Time (Source) Location / / Volume Laterality Blood (Blood, 04/12/2020 8:14 AM 04/13/20 20 8:20 Venous) CDT AM CDT Authorizing Provider Result Deloris Kendall M.D., Ph.D. LAB BLOOD ADD-ON Performing Organization Address City/[facility]/ZIP Code Phon e Number [facility] [address] [place], [place] [address] [facility] [place] [address] Laboratory Medicine and Pathology [address] [...] Organization Address City/State/ZIP Code Phon e Number [facility]- [address], [place] [address] [place] [address] System in [place] [address] [place] [address] Sodium (04/12/2020 8:14 AM CDT) athologist Signature Sodium, P 137 135 - 145 04/12/2020 9:08 [place] mmol/L AM CDT Specimen Anatomical Collection Method Collection Time Receive d Time (Source) Location / / Volume Laterality Blood (Blood, 04/12/2020 8:14 AM 04/12/20 20 8:31 Venous) CDT AM CDT Carlos Kendall M.D., Ph.D. LAB BLOOD ADD-ON Performing Organization Address City/State/ZIP Code Phon e Number [facility]- [address] [place] [address] [place] [address] System in [place] [address] (ABNORMAL) CBC without Differential (04/12/2020 8:14 AM [...] Organization Address City/State/ZIP Code Phon e Number [facility]- [address] [place] [address] [place] [address] System in [place] [address] [facility] (ABNORMAL) Lipid Panel (04/12/2020 8:14 AM [...] Organization Address City/State/ZIP Code Phon e Number [facility]- [address] [facility] [place] [address] [place] [address] System in [place] [address] ALT (Alanine Aminotransferase) (04/12/2020 8:14 AM CDT) [facility] gist Method Time Signature Alanine 16 7 - 55 04/12/2020 [place] Aminotransferase U/L 9:08 AM CDT (ALT), P Specimen Anatomical Collection Method Collection Time Receive d Time (Source) Location / / Volume Laterality Blood (Blood, 04/12/2020 8:14 AM 04/12/20 20 8:31 Venous) CDT AM CDT Authorizing Provider Result Deloris Kendall M.D., Ph.D. LAB BLOOD ADD-ON Performing Organization Address City/[facility]/ZIP Code Phon e Number [facility]- [address] [facility] [place] [address] [place] [address] System in [place] [address] AST (Aspartate Aminotransferase) (04/12/2020 8:14 AM CDT) [facility] [employer] Method Time Signature Aspartate 17 8 - 48 04/12/2020 [place] Aminotransferase U/L 9:08 AM CDT (AST), P Specimen Anatomical Collection Method Collection Time Receive d Time (Source) Location / / Volume Laterality Blood (Blood, 04/12/2020 8:14 AM 04/12/20 20 8:31 Venous) CDT AM CDT Carlos Kendall M.D., Ph.D. LAB BLOOD ADD-ON Performing Organization Address City/State/ZIP Code Phon e Number [facility]- [address] [place] [address] [place] [address] System in [place] [address] [facility] (ABNORMAL) Creatinine with Estimated GFR (04/12/2020 8:14 AM CDT) Analysis Performed At Patho logis Time Signature Creatinine 1.42 (H) 0.74 - 04/12/2020 [place] 1.35 mg/dL 9:08 AM CDT eGFR-Black/Afri 55 (L) >=60 04/12/2020 [place] mL/min/BSA 9:08 AM CDT Comment: ----ADDITIONAL INFORMATION---- Estimated GFR calculated using the 2009 CKD_EPI creatinine equation. eGFR Non-Black/ 48 (L) >=60 mL/min/BSA 04/12/2020 9:08 AM CDT [place] Comment: ----ADDITIONAL INFORMATION---- Estimated GFR calculated using the 2009 CKD_EPI creatinine equation. Specimen Anatomical Collection Method Collection Time Receive d Time (Source) Location / / Volume Laterality Blood (Blood, 04/12/2020 8:14 AM 04/12/20 8:31 Venous) CDT AM CDT K Randy Kendall M.D., Ph.D. LAB BLOOD ADD-ON Performing Organization Address City/State/ZIP Code Phon e Number [facility]- [address] [place] [address] [place] [address] System in [place] [address] [facility] (ABNORMAL) Hemoglobin A1c (04/12/2020 8:14 AM CDT) [facility] Time Signature Hemoglobin A1c, 10.3 (H) 4.2 [...] Organization Address City/State/ZIP Code Phon e Number [facility]- [address] [place] [address] [place] [address] System in [place] [address] (ABNORMAL) Glucose, Fasting (04/12/2020 8:14 AM CDT) [...] CDT Carlos Kendall M.D., Ph.D. LAB BLOOD NON ADD-ON Performing Organization Address City/State/ZIP Code Phon e Number [facility]- [address] [facility] [place] [address] [place] [address] System in [place] [address] T4 (Thyroxine), Total Only (04/12/2020 8:14 AM CDT) athologist Signature T4 (Thyroxine), 5.4 4.5 - 11.7 04/13/2020 D[place] Total Only, S mcg/dL 7:36 AM CDT Specimen Anatomical Collection Method Collection Time Receive d Time (Source) Location / / Volume Laterality Blood (Blood, 04/12/2020 8:14 AM 04/13/20 7:07 Venous) CDT AM CDT Chris Blackmon M.D. LAB BLOOD ADD-ON Performing Organization Address City/State/ZIP Code Phon e Number [facility] - [address] [place], [place] [address] [facility] [place] [address] Laboratories-[facility] [address] T4 (Thyroxine), Free (04/12/2020 8:14 AM CDT) P athologist Signature T4 (Thyroxine), 1.1 0.9 - 1.7 04/12/2020 [place] Free, P ng/dL 9:43 AM CDT Comment: Biotin has been identified [...] AM 04/12/20 8:31 Venous) CDT AM CDT Chris Blackmon M.D. LAB BLOOD ADD-ON Performing Organization Address City/State/ZIP Code Phon e Number [facility]- [address] [place] [address] [place] [address] System in [place] [address] documented in this encounter Visit Diagnoses Diagnosis Fatigue 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) documented in this encounter Additional Health Concerns Assessment Noted Time PHQ-9 Depression Total Score: 18 04/28/2018 11:27 AM C DT documented as of this encounter Care Teams Weight Guesser Relationship Specialty Start Date End Date Chris Billings M.B.B.S., MDahlia. PCP - General Family Medicine 01/10/20 05/21/20 [address] [facility] [place] [address] documented as of this encounter
--- OUTSIDE RECORDS SUMMARY | 2022-05-21 11:28 | XMS_ITS | Encounter Summary ---
:1945 Author Organization [facility] Address [address] [place] [address] Care Team Providers Name Role Phone Chris Billings M.D. Primary Care Provider [phone] Reason for Referral Outpatient (Routine) - Closed Specialty Diagnoses / Procedures Referred By Contact Refer red To Contact Diagnoses Bradycardia Shlomo Ojeda APRN, ARMAAN [place] Procedures ECG Heart rhythm monitor (Holter) C.N.P. [address], [place] [address] Referral ID Status Reason Start Date Expiration Date Visits Requ ested Visits Authorized [id number] Closed 05/01/2020 05/01/2021 1 1 Reason for Visit Outpatient (Routine) - Closed Specialty Diagnoses / Procedures Referred By Contact Refer red To Contact Cardiovascular Disease Koko Bañuelos, 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 Do you [...] have completed or the highest Martin, MEd, RECEPTIONIST SCHEDULER, [place]) degree you have received? Sex Assigned at Date Recorded Male 05/21/2018 2:34 PM CDT documented as of this encounter Last Filed Vital Signs Vital Sign Reading Time Taken Comments Blood Pressure 126/64 05/01/2020 2:10 PM CDT Pulse 46 05/01/2020 2:10 PM CDT Temperature - - Respiratory Rate - - Oxygen Saturation - - Inhaled Oxygen Concentration - - Weight 104 kg (228 lb 13.4 oz) 05/01/2020 2:10 PM CDT Height - - Body Mass Index 28.94 04/13/2020 10:18 AM CDT documented in this encounter Progress Notes Shlomo Ojeda, FAROOQ, C.N.P. - 05/01/2020 2:15 PM CDT SUBJECTIVE CHIEF COMPLAINT/REASON FOR VISIT Cardiology follow-up HISTORY OF PRESENT ILLNESS Jonnathan Costa is seen today to follow-up on his underlying heart disease. This is my 1st time meeting him though he was seen by Dr. Bañuelos back on January 20, 2020. Prior to that, he was not followed with Cardiology regularly. He was being evaluated by pulmonology and had an abnormal stress test. He had been experiencing somedyspnea as well as some atypical chest pains. His stress test was suggestive of a prior silent myocardial infarction with mild darryl- infarct ischemia. A CT of the coronary arteries was completed showingno significant coronary obstructions, specifically no evidence of flow-limiting lesions in the LAD, circumflex or RCA. The FFRct returned showing mild stenosis in the proximal 2nd diagonal and no otherflow-limiting lesions. He was treated medically and instructed to follow-up today. Since then, he saw primary care in [place] wanting to decrease his pill burden. He was taken off of his diltiazem and chlorthalidone on March 15, 2020. About two weeks ago developed some worsening shortness of breath and presented to the [place] emergency room and was subsequently admitted to the hospital. He was treated with IV Lasix and his metformin was held due to renal insufficiency. He was subsequently dismissed outpatient follow-up. It was noted that his troponin level was mildly elevated though remained flat through multiple checks. His main symptom was shortness of breath and he was without chest pain. CT imaging showed bilateral pleuraleffusions and pulmonary embolism. Today, he tells me that he is feeling better but he is not back to his baseline. He continues to feel more short of breath than what is typical for him. He does note that he has an underlying asthma and is being treated for this. He is accompanied to his clinic visit today by his as well as his daughter (a physician up in the [facility]). MEDICATIONS Current Outpatient Medications: ??? albuterol sulfate 90 mcg/actuation aerosol powdr breath activated, Inhale 2 puffs every 6 (six) hours as needed. , Disp: , Rfl: ??? atorvastatin (for_LIPITOR) 80 mg tablet, Take 80 mg by mouth daily. 1/2 tablet daily , Disp: , Rfl: ??? budesonide-formoteroL (SYMBICORT) [...] skin as needed (up to 6/d). , Disp: , Rfl: ??? insulin glargine (LANTUS) 100 unit/mL injection, Inject 20 Units under the skin at bedtime. , Disp: , Rfl: ??? isosorbide mononitrate (IMDUR) 60 mg 24 hr tablet, Take 1 tablet (60 mg total) by mouth daily., Disp: , Rfl: ??? guxhgi-glywvbaq-pqswivt (CREON) 6,000-19,000-30,[address] capsule, Take 1 capsule by mouthas needed for snacks., Disp: , Rfl: ??? losartan (for_COZAAR) 100 mg tablet, Take 50 mg by mouth daily. , Disp: , Rfl: ??? metoprolol succinate (TOPROL-XL) 50 mg 24 hr tablet, Take 1 tablet (50 mg total) by mouth daily.Do not crush or chew., Disp: 90 tablet, Rfl: 3 ??? albuterol (for_ACCUNEB) 2.5 mg /3 mL nebulizer solution, Take 2.5 mg by nebulization every 6 (six) hours as needed for wheezing or shortness of breath., Disp: , Rfl: ??? blood sugar diagnostic (ACCU-CHEK MIHAI PLUS TEST STRP) strips, , Disp: , Rfl: ??? furosemide (LASIX) 20 mg tablet, Take 1 tablet (20 mg total) by mouth daily with breakfast., Disp: 30 tablet, Rfl: 2 ??? insulin NPH and regular human (HumuLIN 70/30 U-100 KwikPen) 100 unit/mL (70- 30) injection, LW Addl Instr:Indicated for: Diabetes, Disp: , Rfl: ??? dvbvlz-pvkrkryl-hokyzam (CREON) 6,000-19,000-30,[address] capsule, 2 capsules. As directed, Disp: , Rfl: ??? metFORMIN (GLUMETZA) 1,000 mg 24 hr tablet, Take 1 tablet (1,000 mg total) by mouth 2 (two) times a day with meals., Disp: 180 tablet, Rfl: 3 ??? PEN NEEDLE, DIABETIC MISC, Yani Fine 30 disposable needles. For use with Insulin Pens, 4 times daily, Disp: , Rfl: ??? SYRINGE-NEEDLE,INSULIN,0.5 ML (INSULIN SYRINGE MISC), , Disp: , Rfl: No current facility-administered medications for this visit. ALLERGIES Allergies Allergen Reactions ??? Doxycycline Anaphylaxis and Other (see comments) Bactrim ??? Penicillin Hives and Rash Cerner Listed no Reactions ??? Sulfa (Sulfonamide Antibiotics) Other (see comments) and Anaphylaxis Cerner Listed no Reactions ??? Amlodipine Hypotension, Nausea Only and Other (see comments) ??? Victoza 2-Eyal [Liraglutide] GI intolerance ??? Gadavist [Gadobutrol] GI intolerance Patient vomited after administration PAST MEDICAL/SURGICAL HISTORY Past Medical History: Diagnosis Date ??? Apnea Sleep Obstructive 06/18/2011 intolerant to CPAP therapy ??? Asthma (HCC) 10/16/2009 Pulmonary symptomatology, diagnosis at the [facility] unclear, but probably some degree of COPD. [...] INSERTION INTRAOCULAR LENS Left 04/2008 At the [facility] ??? LASER OF PROSTATE W/ GREEN LIGHT PVP 08/28/2016 Greenlight photoselective vaporization of the prostate and cystoscopy with bladder biopsy and fulguration of a 2cm area; 08/28/[address] Prasanna Bernal at the [facility]. ??? TONSILLECTOMY ??? VASECTOMY OBJECTIVE VITAL SIGNS BP 126/64 (BP Location: Right arm, Patient Position: Sitting, Cuff Size: Regular) Pulse (!) 46 Wt 104 kg BMI 28.94 kg/m?? PHYSICAL EXAMINATION GENERAL: Pleasant elderly male in no acute distress, alert and oriented x3 VESSELS: Mild JVD in the upright position. No carotid bruits HEART: Regular rate and rhythm. Auscultated heart rate today 68 beats per minute. No murmurs LUNGS: Diminished with faint crackles in the bases bilaterally. No rhonchi or wheezing ABDOMEN: Nondistended EXTREMITIES: Warm with 1+- 2+ pretibial edema bilaterally DIAGNOSTICS CT of the chest April 28, 2020 ([facility] in [place]) INDICATION: Difficulty breathing. Shoulder pain TECHNIQUE: CT chest pulmonary PE protocol acquired with IV contrast. 140 mL of is opaque 320 administered. COMPARISON: 04/22/2018 FINDINGS: Cardiovascular structures: Limited evaluation of some distal segmental and subsegmental pulmonary arteries due to poor opacification. No large, central or proximal segmental pulmonary embolus. Normal cardiac size. A mildly ectatic ascending aorta measuring 3.6 cm. Atherosclerotic changes. Mediastinum and tariq: Prominent, borderline and shotty subcentimeter mediastinal and bi hilar lymph nodes, measuring up to 1.6 cm in short axis in the right paratracheal space, 1.4 cm in short axis in the subcarinal space, and 1.5 cm in short axis in the right hilum. A shotty subcentimeter anterior right phrenic lymph node. Lungs: Atelectatic changes in the basilar aspects of the lower lobes. Mosaic attenuation in the aerated lungs with ill-defined areas of ground-glass opacity, which could be related to compressive changes or a nonspecific pneumonitis. Interlobular septal thickening at the apices. Pleura and pericardium: Czzfszke-wz-ntinl bilateral pleural effusions, right mildly greater than left. Chest wall and axilla: No mass or adenopathy. Irregular densities again seen in the anterior upper abdominal subcutaneous fat, nonspecific. ?? Upper abdomen: Splenomegaly measuring 15.2 cm craniocaudally. 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 Bulky calcifications in the pancreatic head, increased in size. Suspected dilatation of the central pancreatic duct, poorly delineated. A moderately distended gallbladder. Several right renal low-density lesions suggestive of cysts, although not well evaluated. Left renal lower pole cortical scarring. Scattered shotty subcentimeter upper abdominallymph nodes. 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 Bones: No significant findings. ?? IMPRESSION: No CT evidence of a large, central or proximal segmental pulmonary embolus. Moderate to large pleural effusions with adjacent atelectasis in the lower lobes. Ill-defined ground-glass opacities could be related to compressive changes versus nonspecific infectious/inflammatory pneumonitis and/or evolving pulmonary edema. Correlate clinically. Mediastinal and hilar adenopathy. Splenomegaly. Further evaluation to exclude a lymphoproliferative disorder or lymphoma, versus metastatic adenopathy, is recommended. 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 His physical exam, echocardiogram as well as CT imaging support this. I have started him on 20 mg of Lasix and we will recheck labs today to reassess his renal function and electrolytes. I will also have him plan to return to the clinic in approximately one week to reassess renal function and electrolytes on the Lasix. He will let me know if he has any increase in shortness of breath or weight gain despite these recommendations. I have asked him to notify me of a 3 lb weight gain in one day or 5 lb weight gain over oneweek. I have also asked him to start weighing himself daily. 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 I reviewed the option of a coronary angiogram with him, his and daughter. At this point in time, we will plan on continued medical management and can consider an invasive evaluation in the future if his shortness of breath does not respond to heart failure treatment. At this point in time, head appears that his presentation is more consistent with heart failure. #3 Diabetes Mellitus Type 2 (HCC) His diabetes appears to be under poor control with multiple blood sugar readings in the five and 600range at his recent hospitalization. He recently saw Endocrinology and should continue to follow with endocrinology in primary care for diabetes management. His and daughter are also interested helping him improve his glucose readings. #4 Hypertension Essential Primary His blood pressure readings are currently stable on his medication regimen. #5 Chronic Kidney Disease Stage 3 Glomerular Filtration Rate 30 To 59 ([facility]) His renal function became elevated while in the hospital above baseline. This is possibly due to diuresis or cardial renal syndrome verses his diabetes. His metformin is on hold and we will reassess his renal function today, labs are pending at the time of this dictation. #6 Bradycardia He has been bradycardic on and off over the last few weeks, even prior to his metoprolol dose increased. There is some documentation of some bigeminy when he was in the hospital but no other significant arrhythmias seem to be found on telemetry. I am going to have him complete a 24 hour Holter monitor. #7 Abnormal Computed Tomography A CT on his chest showed some mediastinal and hilar adenopathy that will need to be followed up by primary care or pulmonology. Patient is planning on establishing primary care here in [place] since his primary care physician is no longer available in [place]. documented in this encounter Miscellaneous Notes Addendum Note - Shlomo Ojeda APRN, C.N.P. - 05/01/2020 2:15 PM CDT Addended by: SHLOMO OJEDA on: 05/02/2020 01:08 PM Modules accepted: Orders documented in this encounter Plan of Treatment Not on filedocumented as of this encounter Procedures Procedure Name Priority Date/Time Associated Diagnosis Comme nts ELECTROLYTE (CHEM Routine 05/01/2020 4:26 Atherosclerotic Hear t Results for this 4) PANEL, S/P PM CDT Disease [place] Coronary pro cedure are in Artery With Other Forms the results Angina Pectoris (Angina sect ion. Equivalent) ([facility] ) Hypertension Essential Primary Chronic Kidney Disease Stage 3 Glomerular Filtration Rate 30 To 59 (HCC) BUN (BLOOD UREA Routine 05/01/2020 4:26 Atherosclerotic Heart Results for this NITROGEN), S/P PM CDT Disease [place] Coronary pr ocedure are in Artery With Other Forms the results Angina Pectoris (Angina sect ion. Equivalent) (HCC ) Hypertension Essential Primary Chronic Kidney Disease Stage 3 Glomerular Filtration Rate 30 To 59 (HCC) CREATININE WITH Routine 05/01/2020 4:26 Atherosclerotic Heart Results for this EGFR, S/P PM CDT Disease [place] Coronary proc edure are in Artery With Other Forms the results Angina Pectoris (Angina sect ion. Equivalent) (HCC ) Hypertension Essential Primary Chronic Kidney Disease Stage 3 Glomerular Filtration Rate 30 To 59 (HCC) documented in this encounter Results Electrolyte (Chem 4) Panel (05/09/2020 10:15 AM CDT) athologist Signature Potassium, P 4.9 3.6 - [...] AM CDT 10:17 AM CDT Shlomo Ojeda APRN C.N.P. LAB BLOOD ADD-ON Performing Organization Address City/State/ZIP Code Phon e Number [facility]- [address] [place] [address] [place] [address] System in [place] [address] (ABNORMAL) Creatinine with Estimated GFR (05/09/2020 10:15 AM CDT) Analysis Performed At Patho logist Time Signature Creatinine 2.04 (H) 0.74 - 05/09/2020 [place] 1.35 mg/dL 11:03 AM CDT eGFR-Black/Afri 36 (L) >=60 05/09/2020 [place] can [place] mL/min/BSA 11:03 AM CDT Comment: ----ADDITIONAL INFORMATION---- Estimated GFR calculated using the 2009 CKD_EPI creatinine equation. eGFR Non-Black/ 31 (L) >=60 mL/min/BSA 05/09/2020 11:03 AM CDT [place] Comment: ----ADDITIONAL INFORMATION---- Estimated GFR calculated using the 2009 CKD_EPI creatinine equation. Specimen Anatomical Collection Method Collection Time Receive d Time (Source) Location / / Volume Laterality Blood (Blood, 05/09/2020 10:15 05/09/2020 Venous) AM CDT 10:17 AM CDT Shlomo Ojeda APRN, C.N.P. LAB BLOOD ADD-ON Performing Organization Address City/[facility] Code Phon e Number [facility]- [address] [place] [address], [place] [address] [place] [address] System in [place] [address] (ABNORMAL) BUN (Blood Urea Nitrogen) (05/01/2020 4:26 PM CDT) P athologist Signature BUN (Blood Urea 50 (H) 8 - 24 05/01/2020 [place] Nitrogen), P mg/dL 4:49 PM CDT Specimen Anatomical Collection Method Collection Time Receive d Time (Source) Location / / Volume Laterality Blood (Blood, 05/01/2020 4:26 PM 05/01/20 4:30 Venous) CDT PM CDT Shlomo Ojeda APRN, C.N.P. LAB BLOOD ADD-ON Performing Organization Address City/[facility]/ZIP Code Phon e Number [facility]- [address] [place] [facility] [address] [place] [address] System in [place] [address] Electrolyte (Chem 4) Panel (05/01/2020 4:26 PM CDT) P athologist Signature Potassium, P 4.1 3.6 - 5.2 05/01/2020 [place] mmol/L 4:49 PM CDT Sodium, P 139 135 - 145 05/01/2020 [place] mmol/L 4:49 PM CDT Chloride, P 102 98 - 107 05/01/2020 [place] mmol/L 4:49 PM CDT Bicarbonate, P 22 22 - 29 05/01/2020 [place] mmol/L 4:49 PM CDT Anion Gap, P 15 7 - 15 05/01/2020 [place] 4:49 PM CDT Specimen Anatomical Collection Method Collection Time Receive d Time (Source) Location / / Volume Laterality Blood (Blood, 05/01/2020 4:26 PM 05/01/20 4:30 Venous) CDT PM CDT Shlomo Ojeda APRN, C.N.P. LAB BLOOD ADD-ON Performing Organization Address City/[facility]/ZIP Code Phon e Number [facility]- [address] [place] [address], [place] [address] [place] [address] System in [place] [address] (ABNORMAL) Creatinine with Estimated GFR (05/01/2020 4:26 PM CDT) Analysis Performed At [facility] Time Signature Creatinine 1.80 (H) 0.74 - 05/01/2020 [place] 1.35 mg/dL 4:49 PM CDT eGFR-Black/Afri 41 (L) >=60 05/01/2020 [place] can [place] mL/min/BSA 4:49 PM CDT Comment: ----ADDITIONAL INFORMATION---- Estimated GFR calculated using the 2009 CKD_EPI creatinine equation. eGFR Non-Black/ 36 (L) >=60 mL/min/BSA 05/01/2020 4:49 PM CDT [place] Comment: ----ADDITIONAL INFORMATION---- Estimated GFR calculated using the 2009 CKD_EPI creatinine equation. Specimen Anatomical Collection Method Collection Time Receive d Time (Source) Location / / Volume Laterality Blood (Blood, 05/01/2020 4:26 PM 05/01/20 4:30 Venous) CDT PM CDT Shlomo Ojeda APRN, C.N.P. LAB BLOOD ADD-ON Performing Organization Address City/State/ZIP Code Phon e Number [facility]- [address] [place] [address], [place] [address] [facility] [address] System in [place] [address] HOLTER MONITOR - IN CLINIC CHARGER OPERATOR (05/01/2020 4:03 PM CDT) [facility] gist Method Time Signature AF Count 0 count HOLTER SENTINEL Recording Date HOLTER SENTINEL VE Percent 33 percent HOLTER Beats SENTINEL Max Heart Rate 94 bpm HOLTER SENTINEL Max Heart Rate [id number] HOLTER Time SENTINEL Tachycardia 0 count HOLTER Runs SENTINEL VT Runs 21 count HOLTER SENTINEL VE Max Per [id number] HOLTER Hour Time SENTINEL SVE Max Per 19 count HOLTER Hour SENTINEL VT Longest 4 beats HOLTER SENTINEL SVE Percent 0 percent HOLTER Beats SENTINEL VT Max Rate [id number] HOLTER Time SENTINEL Bradycardia 0 count HOLTER Runs SENTINEL Min Heart Rate 60 bpm HOLTER SENTINEL Holter Pauses 0 count HOLTER SENTINEL SVT Runs 0 count HOLTER SENTINEL VT Longest [id number] HOLTER Time SENTINEL Min Heart Rate [id number] HOLTER Time SENTINEL VE Total Beats 33,762 count HOLTER SENTINEL SVE Total 180 count HOLTER Beats SENTINEL Analysis Date 20,200,805 HOLTER SENTINEL VE Max Per 1,903 count HOLTER Hour SENTINEL Mean Heart 70 bpm HOLTER Rate SENTINEL VT Max Rate 134 bpm HOLTER SENTINEL SVE Max Per [id number] HOLTER Hour Time SENTINEL Specimen (Source) Anatomical Collection Method Collection Time Re ceived Time Location / / Volume Laterality 05/01/2020 4:02 PM CDT Narrative This result has an attachment that is no t available. Shlomo Ojeda APRN, C.N.P. CV CARDIAC SERVICES PROCEDU RES Performing Organization Address City/State/ZIP Code Phon e Number HOLTER SENTINEL HOLTER SENTINEL NA documented in this encounter Visit Diagnoses Diagnosis Acute On Chronic Combined Systolic (Jean estive) And Diastolic (Congestive) Heart Failure (HCC) - Primary Atherosclerotic Heart Disease [place] Cor onary Artery With Other Forms Angina Pectoris (Angina Equivalent) (HCC) Diabetes Mellitus Type 2 (HCC) Hypertension Essential Primary Chronic Kidney Disease Stage 3 Glomerula r Filtration Rate 30 To 59 (HCC) Bradycardia Abnormal Computed Tomography documented in this encounter Additional Health Concerns Assessment Noted Time PHQ-9 Depression Total Score: 18 04/28/2018 11:27 AM C DT documented as of this encounter Care Teams Evaluation Manager Relationship Specialty Start Date End Date Chris Billings M.B.B.S., M.D. PCP - General Family Medicine 01/10/20 05/21/[address] [place] [address] [place] [phone] documented as of this encounter
--- OUTSIDE RECORDS SUMMARY | 2022-05-21 11:28 | XMS_ITS | Encounter Summary ---
:[address] [facility] Address [address] [place] [address] Care Team Providers Name Role Phone Chris Billings M.D. Primary Care Provider +1 [phone] Encounter Details Date Type Department Care Team Description 04/19/2020 Clinical Communication Department of Chris Terry [facility], Lorri Tavarez, Clinic, in [place] [address] [facility] 300 [facility] [place] [phone] Social History Tobacco Use Types Packs/Day Years [...] do you attend sabianist or Never 2021 sabianism services? Do you [...] have completed or the highest Martin, MEd, NUTRITIONAL HEALTH COACH, CAYDEN) degree you have received? Sex Assigned at Date Recorded Male 05/21/2018 2:34 PM CDT documented as of this encounter Miscellaneous Notes Telephone Encounter - Jacquie Hamilton, L.P.N. - 04/20/2020 8:58 AM CDT SUBJECTIVE CHIEF COMPLAINT / REASON FOR CALL No chief complaint on file. Information Discussed Per patient he feels he is on too many blood pressure medications that are not mixing well with all the other medications he is prescribed which is causing him to be exhausted all the time, says he can't sleep well with no energy but can fall asleep often. Patient is requesting a referral to [facility] in [place] to review medications and symptoms he is having. Patient is wanting urgent pharmacy consult in [place]. Please call patient to schedule once referral is placed PLAN Disposition/Recommendation: notified provider and awaiting recommendations Information/Education: patient/caller able to teach back Caller agreeable to plan of care: yes The following references were used: other per patient Telephone Encounter - Tino Eid - 04/20/2020 8:36 AM CDT Patient calling back to the nurse. I was unable to reach the nurse. Please call the patient back Telephone Encounter - Jacquie Hamilton LMauroP.N. - 04/20/2020 8:32 AM CDT Voice mail left for patient to return call for more information concerningsymptoms Telephone Encounter - Awa Parham - 04/19/2020 4:57 PM CDT Reason for Communication: Patient is having issues with his medications. He feels over medicated. Current Phone Number: [phone] Can Nursing/Provider leave a detailed message: Did the patient refuse triage through Nurse line? (for symptom based concerns): Action Needed: Please advise Name of Medication (if relevant): documented in this encounter Plan of Treatment Not on filedocumented as of this encounter Visit Diagnoses Not on filedocumented in this encounter Additional Health Concerns Assessment Noted Time PHQ-9 Depression Total Score: 18 04/28/2018 11:27 AM C DT documented as of this encounter Care Teams Air Intelligence Specialist Relationship Specialty Start Date End Date Chris Billings M.B.B.S., M.D. PCP - General Family Medicine 01/10/20 05/21/[address] [place] [phone] documented as of this encounter
--- OUTSIDE RECORDS SUMMARY | 2022-05-21 11:28 | XMS_ITS | Encounter Summary ---
:1945 Author Organization [facility] Address [address] [place] [address] Care Team Providers Name Role Phone Chris Billings M.D. Primary Care Provider [phone] Reason for Visit Reason Comments COVID Nurse Line Encounter Details Date Type Department Care Team Description 03/29/2020 Nurse Triage Department of [facility] Kanwal Brock COVID Nurse Line Medicine, [facility], [facility] [address] [phone] Social History Tobacco Use Types Packs/Day Years [...] do you attend scientologist or Never 2021 episcopal services? Do you [...] have completed or the highest Martin, MEd, MOTORBOAT OPERATOR, CAYDEN) degree you have received? Sex Assigned at Date Recorded Male 05/21/2018 2:34 PM CDT documented as of this encounter Miscellaneous Notes Telephone Encounter - Kanwal Brock R.N. - 03/29/2020 9:07 AM CDT COVID-19 Nurse Line Screening ASSESSMENT COVID 19 Screening Have you had close contact with a person who has a LABORATORY CONFIRMED case of COVID-19?: No - Continue screening. In the last 48 hours have you had any of the following symptoms?: New shortness of breath Do you have any urgent symptoms?: None- Patient meets criteria for testing. PLAN Endpoint recommendation: Screening positive, testing indicated, advised to be swabbed for COVID-19, sent to [facility] located [address] [facility] to back of the clinic; cannot access from main parking lot. Testing hours are daily 10 am to 6 pm. When you arrive stay in your car and someone will direct you. and Self-isolation, quarantine at home Care Points provided: RECOMMENDATIONS TESTING CRITERIA IS MET: Stay home except to get medical care. Avoid public areas and public transportation. Separate yourself from other people and stay in a specific sick room if possible. Wear a cloth face covering, over your nose and mouth if you must be a round other people even at home). Cover your nose and mouth when coughing or sneezing. Seek emergentcare if any of the following occur: 1) Trouble breathing, 2) Bluish lips or face, 3) Persistent painor pressure in the chest, 4) Newly confused or unable to stay alert and awake. Notify appropriate care provider if any new or worsening symptoms. If your test is negative and new symptoms develop please contact your care provider to determine if re-testing is necessary. Education Resources: https://www .cdc.gov/coronavirus/2019-ncov/hu-dbe-chz-sick/hcirr-phyd-amlv.html Education: patient/caregiver Patient/caregiver able to teach back Patient agreeable to plan of care: Yes The following references were used: [facility] novel coronavirus (COVID- 19) resources Nursing judgement documented in this encounter Plan of Treatment Not on filedocumented as of this encounter Visit Diagnoses Not on filedocumented in this encounter Additional Health Concerns Assessment Noted Time PHQ-9 Depression Total Score: 18 04/28/2018 11:27 AM C DT documented as of this encounter Care Teams Physician Relationship Specialty Start Date End Date Chris Billings M.B.BRhoda Walker. PCP - General Family Medicine 01/10/20 05/21/[address] [place] [phone] documented as of this encounter
--- OUTSIDE RECORDS SUMMARY | 2022-05-21 11:28 | XMS_ITS | Encounter Summary ---
:1945 Author Organization [facility] Address [address] [place] [address] Care Team Providers Name Role Phone Chris Billings M.D. Primary Care Provider [phone] Encounter Details Date Type Department Care Team Description 04/13/2020 Documentation Division of Gastroenterology Ran Vilchis in [facility] [address] [facility] [address] [place] [phone] Social History Tobacco Use Types Packs/Day Years [...] or relatives? How often do you attend shinto or Never 2021 yarsanism services? Do you belong to any clubs or No 10/09/2021 organizations such as shinto groups, unions, fraternal or athletic groups, or [...] have completed or the highest Martin, MEd, HAZARDOUS WASTE MATERIAL TECHNICIAN, CAYDEN) degree you have received? Sex Assigned at Date Recorded Male 05/21/2018 2:34 PM CDT documented as of this encounter Plan of Treatment Not on filedocumented as of this encounter Visit Diagnoses Not on filedocumented in this encounter Additional Health Concerns Assessment Noted Time PHQ-9 Depression Total Score: 18 04/28/2018 11:27 AM C DT documented as of this encounter Care Teams Window Dresser Relationship Specialty Start Date End Date Chris Billings M.B.B.S., M.D. PCP - General Family Medicine 01/10/20 05/21/[address] [place] [phone] documented as of this encounter
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
--- OUTSIDE RECORDS SUMMARY | 2022-05-21 11:28 | XMS_ITS | Encounter Summary ---
:1945 Author Organization [facility] Address [address] [place] [address] Care Team Providers Name Role Phone Chris Billings M.D. Primary Care Provider [phone] Encounter Details Date Type Department Care Team Description 04/04/2020 Orders Only Division of Ran Eduardo Clinical Research Gastroenterology in [address] [facility] W Exam (Primary Dx) [place], [place] [address] [facility] [address] [place] [address] [phone] Social History Tobacco Use Types Packs/Day Years [...] do you attend holiness or Never 2021 yazdanism services? Do you [...] have completed or the highest Martin, MEd, CROP GRAIN OR LIVESTOCK FARMER, CAYDEN) degree you have received? Sex Assigned at Date Recorded Male 05/21/2018 2:34 PM CDT documented as of this encounter Plan of Treatment Not on filedocumented as of this encounter Visit Diagnoses Diagnosis Clinical Research Exam - Primary documented in this encounter Additional Health Concerns Assessment Noted Time PHQ-9 Depression Total Score: 18 04/28/2018 11:27 AM C DT documented as of this encounter Care Teams Metal Flow Coordinator Relationship Specialty Start Date End Date Chris Billings M.B.BDenise, MDahlia. PCP - General Family Medicine 01/10/20 05/21/[address] [place] [address] [place] [phone] documented as of this encounter
--- OUTSIDE RECORDS SUMMARY | 2022-05-21 11:28 | XMS_ITS | Encounter Summary ---
:1945 Author Organization [facility] Address [address] [place] [address] Care Team Providers Name Role Phone Chris Billings M.D. Primary Care Provider [phone] Reason for Visit Reason Onset Date Comments Outpatient COVID-19 Testing 03/29/2020 Encounter Details Date Type Department Care Team Description 03/29/2020 External Outreach Department of Chad Pettit Infect rozina Upper Internal Medicine in J, D.O. Respiratory (Primary [place], [place] [address]) [address] [facility] [place] [phone] Social History Tobacco Use Types Packs/Day Years [...] do you attend presybeterian or Never 2021 jew services? Do you [...] completed or the highest Martin, MEd, GOLF BALL INSPECTOR, CAYDEN) degree you have received? Sex Assigned at Date Recorded Male 05/21/2018 2:34 PM CDT documented as of this encounter Progress Notes Estelle Chau R.N. - 03/29/2020 9:59 AM CDT Encounter created for the drive-through COVID-19 testing. documented in this encounter Plan of Treatment Not on filedocumented as of this encounter Procedures Procedure Name Priority Date/Time Associated Diagnosis Comme nts SARS CORONAVIRUS-2 Routine 03/29/2020 12:07 PM Infection Upper Results for this RNA, V CDT Respiratory procedure are i n the results section. documented in this encounter Results SARS Coronavirus-2 RNA, V Symptomatic (03/29/2020 12:07 PM CDT) [facility] Method Time Signature SARS-CoV-2 Swab, 03/30/2020 [facility] Specimen Nasopharynx 4:55 AM CDT Source SARS CoV-2 Undetected Undetected 03/30/2020 MKTO RNA, TMA 4:55 AM CDT Comment: SARS-CoV-2 RNA absent. This result does not rule out COVID-19 in the patient, as the sensitivity of the test depends o n the timing of the specimen collection and the quality of the specim en. Result should be correlated with patient's history and clinical presentat ion. ----ADDITIONAL INFORMATION---- This test is performed using the Aptima SARS-CoV-2 assay ([employer] which has received Emergency Use Authori zation (EUA) by the U.S. Food and Drug Administration. Fact sheets for this Emergency Use Autho rization (EUA) assay can be found at the following links: For Healthcare Providers: https://www.[employer] a.gov/media/927215/download For Patients: https://www.fda.gov/media/ 863774/download Specimen Anatomical Collection Method Collection Time Receive d Time (Source) Location / / Volume Laterality Varies 03/29/2020 12:07 03/29/2020 8:01 (Nasopharynx) PM CDT PM CDT Chad Pettit D.O. LAB MICROBIOLOGY - GENERAL O RDERABLES Performing Organization Address City/[facility] Phon e Number [facility]- [address] [place] [phone] [place] [address] [address] documented in this encounter Visit Diagnoses Diagnosis Infection Upper Respiratory - Primary documented in this encounter Additional Health Concerns Infection Onset Date Last Indicated Resolved Time COVID19 Pending 03/29/2020 03/29/2020 03/30/2020 4:56 AM CDT Assessment Noted Time PHQ-9 Depression Total Score: 18 04/28/2018 11:27 AM C DT documented as of this encounter Care Teams Research Nutritionist Relationship Specialty Start Date End Date Chris Billings M.B.B.S., Rhoda. PCP - General Family Medicine 01/10/20 05/21/[address] [place] [address] [place] [phone] documented as of this encounter
--- OUTSIDE RECORDS SUMMARY | 2022-05-21 11:28 | XMS_ITS | Encounter Summary ---
:1945 Author Organization [facility] Address [address] [place] [address] Care Team Providers Name Role Phone Chris Billings M.D. Primary Care Provider +1 [phone] Reason for Referral Outpatient (Routine) - Closed Specialty Diagnoses / Procedures Referred By Contact Refer red To Contact Diagnoses Atherosclerotic Heart Disease [place] Coronary Artery With Other Forms Angina Pectoris (Angina Equivalent) (HCC) Koko Bañuelos M.D. [facility] [place] [facility] Procedures Echo Transthoracic (TTE) [address] [place] [address] Referral ID Status Reason Start Date Expiration Date Visits Requ ested Visits Authorized [id number] Closed 01/20/2020 01/19/2021 1 1 Reason for Visit Outpatient (Routine) - Closed Specialty Diagnoses / Procedures Referred By Contact Refer red To Contact Diagnoses Atherosclerotic Heart Disease [place] Coronary Artery With Other Forms Angina Pectoris (Angina Equivalent) (HCC) Koko Bañuelos M.D. [facility] [place] [facility] Procedures Echo Transthoracic (TTE) [address] [place] [address] Referral ID Status Reason Start Date Expiration Date Visits Requ ested Visits Authorized [id number] Closed 01/20/2020 01/19/2021 1 1 Encounter Details Date Type Department Care Team Description 04/17/2020 Hospital Department of Arsenio Bañuelos Heart Encounter Cardiovascular Koko Champagne M.D. Disease [place] Diseases in [place], [facility] [address] Coronary Artery With [place], [place] Other Forms Angina [address] [address] Pectoris (Angina [place] PATEL [phone] Equivalent) (HC C) [phone] (Work) [phone] Social History Tobacco Use Types Packs/Day Years [...] do you attend voodoo or Never 2021 judaism services? Do you [...] have completed or the highest Martin, MEd, VITICULTURIST, CAYDEN) degree you have received? Sex Assigned [...] PEN NEEDLE, DIABETIC Yani Fine 30 0 [facility] disposable needles. For use with Insulin Pens, 4 times daily SYRINGE-NEEDLE,INSULIN,0 0 .5 ML (INSULIN SYRINGE [facility]) albuterol (for_ACCUNEB) Take 2.5 mg by 0 [...] Moderate (HCC) twice daily if tolerated. chlorthalidone TAKE ONE TABLET BY 0 (HYGROTON) 25 mg tablet MOUTH EVERY DAY FOR BLOOD PRESSURE dilTIAZem CD (CARDIZEM TAKE ONE CAPSULE BY 0 05/01/2020 CD/CARTIA XT) 120 mg 24 MOUTH EVERY DAY FOR hr capsule BLOOD PRESSURE flash glucose scanning Use as directed 1 each 0 09/18/20 18 05/01/2020 reader (FREESTYLE ILEANA 14 DAY READER) [facility] flash glucose sensor Use as directed. 6 [...] by mouth tabletIndications: daily. Atherosclerotic Heart Disease [place] Coronary Artery With Other Forms Angina Pectoris (Angina Equivalent) ([facility]), Diabetes Mellitus Type 2 ([facility]), Hypertension Essential Primary yfooka-checxtvu-epugmcc 2 capsules 3 (three) 0 10/12/2020 (CREON) times a day with 6,000-19,000-30,000 Unit meals. As directed per capsule lisinopriL Take 1 tablet by 0 [...] Diagnosis Comme nts (TTE) 2D ECHO Routine 04/17/2020 10:06 Atherosclerotic Heart R esults for this DOPPLER COLOR AM CDT Disease [place] Coronary pro cedure are in Artery With Other Forms the results Angina Pectoris (Angina sect ion. Equivalent) (HCC) documented in this encounter Results (TTE) 2D ECHO DOPPLER COLOR (04/17/2020 10:06 AM CDT) [facility] Method Time Signature Ejection Fraction 42 MC CV EIMS Mid-Ascending Aorta 35 MC CV EIMS Wall Motion Score 1.94 MC CV EIMS Index LV Mass Index 140 MC CV EIMS LV End-Diastolic 55 MC CV EIMS Diameter LV End-Systolic 43 MC CV EIMS Diameter MV E Velocity 0.8 MC CV EIMS MV A Velocity 0.7 MC CV EIMS MV E/A 1.14 MC CV EIMS MV e' Velocity 0.06 MC CV EIMS Medial MV e' Velocity 0.09 MC CV EIMS Lateral MV E/e' Medial 13.3 MC CV EIMS MV E/e' Lateral 8.9 MC CV EIMS Left ventricular 42 MC CV EIMS stroke volume index Cardiac Output 7.98 MC CV EIMS Cardiac Index 3.50 MC CV EIMS LV Interventricular 15 MC CV EIMS Septal Wall Thickness LV Posterior Wall 12 MC CV EIMS Thickness LV Relative Wall 44 MC CV EIMS Thickness Tricuspid Annular S? 0.13 MC CV EIMS RA Pressure 5 MC CV EIMS Aortic valve area 3.96 MC CV EIMS Aortic Valve 0.88 MC CV EIMS Dimensionless Index MV mean gradient 3 MC CV EIMS LA Volume Index 40 MC CV EIMS WMSI At Rest 1.94 MC CV EIMS WMSI At Peak Stress 1.94 MC CV EIMS Anatomical Region Laterality Modality Echocardiography Specimen (Source) Anatomical Collection Method Collection Time Re ceived Time Location / / Volume Laterality 04/17/2020 9:19 AM CDT Impressions 04/17/2020 1:23 PM CDT Transthoracic outreach echo interpretation. ??LEFT VENTRICLE: ??Mildly enlarged left ventricular chamber size. ??Mildly increased concent zeenat left ventricular wall thickness. ??Calculated 2-D linear left ventricular ejection fractio n 42 %. ??Left ventricular volumetric assessment not performed because of image quality. ??Re gional wall motion abnormalities were present (see wall motion graphics). ??Normal left ventricu lar filling pressure at rest. ??RIGHT VENTRICLE: ??Normal right ventricular chamber size by visual estimate. ??Normal right ventricular systolic function. Unable to detect peak tricuspid regurgi tation velocity for pulmonary artery systolic pressure calculation. ??ATRIA: ??Enlarged left at rial size. ??Left atrial volume index 40 ml/m^2. ??Enlarged right atrial size by visual estimate. ?? CARDIAC VALVES: ??No hemodynamically significant valvular heart disease. ??Aortic valve not well v isualized. ??Trileaflet aortic valve. ??Sclerotic aortic valve. ??Trivial aortic valve regurgitat ion. ??Mildly thickened mitral valve. ??Severely calcified mitral annulus. ??Mitral valve diastolic mean Doppler gradient 3 mmHg (heart rate 85 BPM). ??Mild mitral valve regurgitation. ??Pulmonary valve not well visualized. ??Trivial pulmonary valve regurgitation. ??Normal tricuspid valve. ??Trivial tricuspid valve regurgitation. ??OTHER ECHO FINDINGS: ??Normal inferior vena cava si ze with normal inspiratory collapse (>50%). ??Normal ascending aorta diameter. ??Abdominal ao rta incompletely visualized. ??Normal abdominal aorta Doppler flow pattern. ??No atrial level shunt by color flow imaging. ??No intracardiac mass or thrombus, but the left atrial appendage cannot be visualized adequately with transthoracic echo to exclude thrombus in this location. ?? No pericardial effusion. For the complete report, see the BringIt Documents. Narrative 04/17/2020 1:23 PM CDT For the complete report, see the BringIt Documents. Final Impressions 1. Mildly enlarged left ventricular jose f taye size. 2. Calculated 2-D linear left ventricula r ejection fraction 42 %. 3. Regional wall motion abnormalities we re present (see wall motion graphics). 4. Normal right ventricular chamber size by visual estimate. ??Normal right ventricular systolic function. 5. No hemodynamically significant valvul ar heart disease. 6. Normal inferior vena cava size with n ormal inspiratory collapse (>50%). 7. Compared to the report of 12/15/2019 the following changes have occurred: Increase in left ventricular size and worsening of wall m otion abnormalities at rest.. Side by side comparison of images performed. Procedure Note Dariusz Luis M.D., Ph.D. - 04/17/2020 For the complete report, see the Order-L Iframe Appsel Documents. Final Impressions 1. Mildly enlarged left ventricular jose f taye size. 2. Calculated 2-D linear left ventricula r ejection fraction 42 %. 3. Regional wall motion abnormalities we re present (see wall motion graphics). 4. Normal right ventricular chamber size by visual estimate. Normal right ventricular systolic function. 5. No hemodynamically significant valvul ar heart disease. 6. Normal inferior vena cava size with n ormal inspiratory collapse (>50%). 7. Compared to the report of 12/15/2019 the following changes have occurred: Increase in left ventricular size and worsening of wall m otion abnormalities at rest.. Side by side comparison of images performed. Findings Transthoracic outreach echo interpretati on. LEFT VENTRICLE: Mildly enlarged left ventricular chamber size. Mildly increased concentri c left ventricular wall thickness. Calculated 2-D linear left ventricular ejection fractio n 42 %. Left ventricular volumetric assessment not performed because of image quality. Kiersten onal wall motion abnormalities were present (see wall motion graphics). Normal left ventricula r filling pressure at rest. RIGHT VENTRICLE: Normal right ventricular chamber size by visual estimate. Normal right ventricular systolic function. Unable to detect peak tricuspid regurgi tation velocity for pulmonary artery systolic pressure calculation. ATRIA: Enlarged left atrial size. Left atrial volume index 40 ml/m^2. Enlarged right atrial size by visual estimate. CA RDIAC VALVES: No hemodynamically significant valvular heart disease. Aortic valve not well vis ualized. Trileaflet aortic valve. Sclerotic aortic valve. Trivial aortic valve regurgitatio n. Mildly thickened mitral valve. Severely calcified mitral annulus. Mitral valve diastolic m shlomo Doppler gradient 3 mmHg (heart rate 85 BPM). Mild mitral valve regurgitation. Pulmonary va lve not well visualized. Trivial pulmonary valve regurgitation. Normal tricuspid valve. T rivial tricuspid valve regurgitation. OTHER ECHO FINDINGS: Normal inferior vena cava size with normal inspiratory collapse (>50%). Normal ascending aorta diameter. Abdominal aort a incompletely visualized. Normal abdominal aorta Doppler flow pattern. No atrial level sh unt by color flow imaging. No intracardiac mass or thrombus, but the left atrial appendage cannot be visualized adequately with transthoracic echo to exclude thrombus in this location. No pericardial effusion. For the complete report, see the Order-L evel Documents. Koko Bañuelos M.D. CV ECHO PROCEDURES documented in this encounter Visit Diagnoses Diagnosis Atherosclerotic Heart Disease [place] Cor onary Artery With Other Forms Angina Pectoris (Angina Equivalent) (HCC) documented in this encounter Additional Health Concerns Assessment Noted Time PHQ-9 Depression Total Score: 18 04/28/2018 11:27 AM C DT documented as of this encounter Care Teams Java Tech Lead Relationship Specialty Start Date End Date Chris Billings M.B.B.S., M.D. PCP - General Family Medicine 01/10/20 05/21/[address] [place] [address] [place] [address] documented as of this encounter
--- OUTSIDE RECORDS SUMMARY | 2022-05-21 11:28 | XMS_ITS | Encounter Summary ---
:1945 Author Organization [facility] Address [address] [place] [address] Care Team Providers Name Role Phone Chris Billings M.D. Primary Care Provider +1 [phone] Reason for Visit Reason Comments Medication Problem low energy Encounter Details Date Type Department Care Team Description 03/15/2020 Office Visit Department of [facility] Chris Billings etjeffry Mellitus Type 2 Without Complication (HCC) (Primary Dx); Medicine, Lorri Tavarez, Atheros clerotic Heart Disease Of [place] Coronary Artery Without Angina Pectoris; Clinic, in [place] Hypertension Essential Primary; [place] [facility] [address] [facility] [place], [place] [phone] Social History Tobacco Use Types Packs/Day [...] do you attend episcopal or Never 2021 christian services? Do you [...] completed or the highest Martin, MEd, MANAGER CLIENT SERVICE, CAYDEN) degree you have received? Sex Assigned at Date Recorded Male 05/21/2018 2:34 PM CDT documented as of this encounter Last Filed Vital Signs Vital Sign Reading Time Taken Comments Blood Pressure 124/60 03/15/2020 2:04 PM CDT Pulse 84 03/15/2020 2:04 PM CDT Temperature 36.9 ??C (98.4 ??F) 03/15/2020 2:04 PM CDT Respiratory Rate - - Oxygen Saturation - - Inhaled Oxygen Concentration - - Weight 102 kg (224 lb 13.9 oz) 03/15/2020 2:04 PM CDT Height - - Body Mass Index 28.08 03/07/2020 9:21 AM CDT documented in this encounter Progress Notes Chris Billings M.B.B.S., M.Coleman. - 03/15/2020 2:00 PM CDT SUBJECTIVE CHIEF COMPLAINT / REASON FOR VISIT Jonnathan Costa is a 74 y.o. male who presents for evaluation of Medication Problem (low energy). HISTORY OF PRESENT ILLNESS Jonnathan is a pleasant 74-year-old male with multiple comorbidities including type 2 diabetes on insulin, coronary artery disease, hypertension and diastolic heart failure. He also has a history of previous CVA and is on Plavix. Patient is here with concerns about fatigue and easy fatigability. He finds it difficult to engage in daily activities and reports having a mechanical fall 2 weeks ago. He has a long list of medications he is taking and believes some should be discontinued. The following portions of the patient's history were reviewed and updated as appropriate: allergies,current medications, family history, medical history, social history, surgical history and problem list. REVIEW OF SYSTEMS Pertinent items are noted in HPI. OBJECTIVE BP 124/60 (BP Location: Left arm, Patient Position: Sitting, Cuff Size: Large) Pulse 84 Temp 36.9 ??C Wt 102 kg BMI 28.08 kg/m?? PHYSICAL EXAM General Appearance: healthy, alert, no distress, cooperative. Skin: skin color, texture, turgor normal, no suspicious rashes or lesions. Head: normocephalic, no masses, lesions, tenderness or abnormalities. Eyes: Anicteric sclera. Pupils are equally round and reactive to light. Extraocular movements are intact. . Neck: Supple, no adenopathy; thyroid symmetric, normal size, no bruits. Lungs: clear to auscultation. Heart: RRR without murmur, gallop, or rubs. Musculoskeletal: Range of motion normal in hips, knees, shoulders, and spine. Neurologic: Gait normal. Reflexes normal and symmetric. Sensation grossly intact.. ASSESSMENT / PLAN #1 Diabetes Mellitus Type 2 Without Complication (HCC) #2 Atherosclerotic Heart Disease [place] Coronary Artery Without Angina Pectoris #3 Hypertension Essential Primary #4 Fatigue Jonnathan presents with fatigue and concerns about polypharmacy. Have reviewed his medications and considering his systolic blood pressure is borderline low, I have discontinued chlorthalidone. He is also on metoprolol and diltiazem. I have discontinued diltiazem. Patient follow-up with cardiology for further evaluation on these medications. I reviewed patient's chart and noticed an elevated TSH of 5.1 in June 2018. However, his symptomsare more recent so we did check his TSH today which was 5.0. I will check his T3 and T4. We also discussed fall precautions at this time. He will follow-up with me in 1 month to evaluate his response to changes in his medications. 25 minutes of this visit was spent in bcar-tr-vgls care, review of medications and counseling. documented in this encounter Plan of Treatment Not on filedocumented as of this encounter Procedures Procedure Name Priority Date/Time Associated Diagnosis Comme nts THYROID-STIMULATING Routine 03/15/2020 3:02 PM Fatigue Re sults for this HORMONE-SENSITIVE CDT procedure are in (S-TSH) the results section. documented in this encounter Results T4 (Thyroxine), Total Only (04/12/2020 8:14 AM CDT) athologist Signature T4 (Thyroxine), 5.4 4.5 - 11.7 04/13/2020 DTL Total Only, S mcg/dL 7:36 AM CDT Specimen Anatomical Collection Method Collection Time Receive d Time (Source) Location / / Volume Laterality Blood (Blood, 04/12/2020 8:14 AM 04/13/20 20 7:07 Venous) CDT AM CDT Chris Blackmon M.D. LAB BLOOD ADD-ON Performing Organization Address City/State/ZIP Code Phon e Number [facility] - [address] [place], [place] [address] [facility] [place] [address] Laboratories-[facility] [address] T4 (Thyroxine), Free (04/12/2020 8:14 AM CDT) athologist Signature T4 (Thyroxine), 1.1 0.9 - 1.7 04/12/2020 [place] Free, P ng/dL 9:43 AM CDT Comment: Biotin has been identified by the capri enriquez as a potential interfering substance. ??Higher concentr ations of biotin may be found in multivitamins, hair/nail supple ments, and workout supplements. ??If the result does not [facility] clinical observations, repeat testing after patient refrains fr om the use of supplements for at least 12 hours. Specimen Anatomical Collection Method Collection Time Receive d Time (Source) Location / / Volume Laterality Blood (Blood, 04/12/2020 8:14 AM 04/12/20 20 8:31 Venous) CDT AM CDT Chris Blackmon M.D. LAB BLOOD ADD-ON Performing Organization Address City/State/ZIP Code Phon e Number [facility]- [address] [place] [address] [place] [address] System in [place] [address] (ABNORMAL) S-TSH (Thyroid-Stimulating Hormone - Sensitive) (03/15/2020 3:02 PM CDT) P athologist Signature TSH, Sensitive 5.0 (H) 0.3 - 4.2 03/15/2020 [place] mIU/L 6:16 PM CDT Comment: Biotin has been identified by the capri enriquez as a potential interfering substance. ??Higher concentr ations of biotin may be found in multivitamins, hair/nail supple ments, and workout supplements. ??If the result does not [facility] clinical observations, repeat testing after patient refrains fr om the use of supplements for at least 12 hours. Specimen Anatomical Collection Method Collection Time Receive d Time (Source) Location / / Volume Laterality Blood (Blood, 03/15/2020 3:02 PM 03/15/20 20 5:45 Venous) CDT PM CDT Chris Blackmon M.D. LAB BLOOD ADD-ON Performing Organization Address City/State/ZIP Code Phon e Number [facility]- [address] [place] [address] [place] [address] System in [place] [address] documented in this encounter Visit Diagnoses Diagnosis Diabetes Mellitus Type 2 Without Complic ation (HCC) - Primary Atherosclerotic Heart Disease [place] Coronary Artery Without Angina Pectoris Hypertension Essential Primary Fatigue documented in this encounter Additional Health Concerns Assessment Noted Time PHQ-9 Depression Total Score: 18 04/28/2018 11:27 AM C DT documented as of this encounter Care Teams Pastry Supervisor Relationship Specialty Start Date End Date WaribChris guerrero M.B.B.S., MDahlia. PCP - General Family Medicine 01/10/20 05/21/[address] [place] [address] [place], [place] [phone] documented as of this encounter
--- OUTSIDE RECORDS SUMMARY | 2022-05-21 11:28 | XMS_ITS | Encounter Summary ---
:1945 Author Organization [facility] Address [address] [place] [address] Care Team Providers Name Role Phone Chris Billings M.D. Primary Care Provider [phone] Encounter Details Date Type Department Care Team Description 03/30/2020 Clinical Communication Department of Chris Terry [facility], Lorri Tavarez, Clinic, in [place] [address] [facility] [address] [facility] [place] [phone] Social History Tobacco Use Types Packs/Day Years [...] do you attend shinto or Never 2021 scientologist services? Do you [...] have completed or the highest Martin, MEd, COMMERCIAL TECHNICIAN, [place]) degree you have received? Sex Assigned at Date Recorded Male 05/21/2018 2:34 PM CDT documented as of this encounter Miscellaneous Notes Telephone Encounter - Natasha Baumann - 03/30/2020 11:49 AM CDT Left message for patient to call back regarding negative COVID-19 result. Please communicate the result to the patient. Thank you. documented in this encounter Plan of Treatment Not on filedocumented as of this encounter Visit Diagnoses Not on filedocumented in this encounter Additional Health Concerns Infection Onset Date Last Indicated Resolved Time COVID19 Pending 03/29/2020 03/29/2020 03/30/2020 4:56 AM CDT Assessment Noted Time PHQ-9 Depression Total Score: 18 04/28/2018 11:27 AM C DT documented as of this encounter Care Teams Scale Technician Relationship Specialty Start Date End Date Chris Billings M.B.B.S., M.D. PCP - General Family Medicine 01/10/20 05/21/[address] [place] [address] [place] [phone] documented as of this encounter
--- OUTSIDE RECORDS SUMMARY | 2022-05-21 11:29 | XMS_ITS | Encounter Summary ---
:1945 Author Organization [facility] Address [address] [place] [address] Care Team Providers Name Role Phone Chris Billings M.D. Primary Care Provider +1 [phone] Encounter Details Date Type Department Care Team Description 02/27/2020 Orders Only Division of [place]min[place], Diarrhea (Prima ry Dx) Gastroenterology in [place], [place] [address] [facility] [address] [place] [phone] Social History Tobacco Use Types Packs/Day Years [...] do you attend presybeterian or Never 2021 uatsdin services? Do you [...] completed or the highest Martin, MEd, CLINICAL SUPPORT TECH, CAYDEN) degree you have received? Sex Assigned at Date Recorded Male 05/21/2018 2:34 PM CDT documented as of this encounter Plan of Treatment Not on filedocumented as of this encounter Visit Diagnoses Diagnosis Diarrhea - Primary documented in this encounter Additional Health Concerns Infection Onset Date Last Indicated Resolved Time COVID19 Pending 03/04/2020 03/04/2020 03/04/2020 7:57 PM CDT Assessment Noted Time PHQ-9 Depression Total Score: 18 04/28/2018 11:27 AM C DT documented as of this encounter Care Teams Curriculum Specialist Relationship Specialty Start Date End Date Chris Billings M.B.BDenise, MDahlia. PCP - General Family Medicine 01/10/20 05/21/[address] [place] [address] [place] [phone] documented as of this encounter
--- OUTSIDE RECORDS SUMMARY | 2022-05-21 11:29 | XMS_ITS | Encounter Summary ---
:[address] [facility] Address [address] [place] [address] Care Team Providers Name Role Phone Chris Billings M.D. Primary Care Provider [phone] Reason for Referral Outpatient (Routine) - Closed Specialty Diagnoses / Procedures Referred By Contact Refer red To Contact Infectious Diseases Diagnoses Pancreatitis Chronic (HCC) Exocrine Pancreatic Insufficiency Diarrhea Emil Zurita [place] M.D. [address] [place] [address] Referral ID Status Reason Start Date Expiration Date Visits V isits Requested Authorized [id number] Closed Specialty 03/10/2020 03/10/2021 1 1 Services Required Reason for Visit Reason Comments Pancreas Encounter Details Date Type Department Care Team Description 03/10/2020 Clinical Communication Division of Kasey Zurita Gastroenterology in [place], [place] [address] [facility] [address] [place] [phone] Social History Tobacco Use Types Packs/Day Years [...] do you attend jain or Never 2021 druze services? Do you [...] have completed or the highest Martin, MEd, MINE ENGINEERING MANAGER, CAYDEN) degree you have received? Sex Assigned at Date Recorded Male 05/21/2018 2:34 PM CDT documented as of this encounter Miscellaneous Notes Telephone Encounter - Mamta Galarza - 03/10/2020 11:21 AM CDT Called patient to advise that IFD is actually a face to face versus a ECONS, advised that he could ask for a new itinerary to be printed at check in documented in this encounter Plan of Treatment Scheduled Referrals Name Type Priority Associated Diagnoses Order S chedule Infectious Disease Outpatient Referral Routine Pancreatitis Christa sanders Expected: - General consult (HCC) 03/10/2020 (clinic) Exocrine Pancreatic (Approxi mate), Insufficiency (H CC) Expires: Diarrhea 03/10/2023 documented as of this encounter Visit Diagnoses Diagnosis Pancreatitis Chronic (HCC) - Primary Exocrine Pancreatic Insufficiency Diarrhea documented in this encounter Additional Health Concerns Assessment Noted Time PHQ-9 Depression Total Score: 18 04/28/2018 11:27 AM C DT documented as of this encounter Care Teams Public Weigher Relationship Specialty Start Date End Date Chris Billings M.B.B.S., M.D. PCP - General Family Medicine 01/10/20 05/21/[address] [place] [phone] documented as of this encounter
--- OUTSIDE RECORDS SUMMARY | 2022-05-21 11:29 | XMS_ITS | Encounter Summary ---
:1945 Author Organization [facility] Address [address] [place] [address] Care Team Providers Name Role Phone Chris Billings M.D. 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 [facility] Procedures CT Retrospective Heartflow FFRct [address] [place] [address] Referral ID Status Reason Start Date Expiration Date Visits Requ ested Visits Authorized [id number] Closed 01/27/2020 01/26/2021 1 1 Encounter Details Date Type Department Care Team Description 01/27/2020 Hospital Encounter Department of Robbin Bañuelos Heart Radiology in Koko Champagne M.D. Disease [place] Coronary [place], [address] [place] [address] Artery With Other Forms [place], [place] Angina Pectoris (Angina [address] [address] Equivalent) ([facility]) [place], [place] [phone] (Work) Social History Tobacco Use Types Packs/Day [...] do you attend protestant or Never 2021 jehovah's witness services? 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 Sex [...] daily SYRINGE-NEEDLE,INSULIN,0 0 .5 ML (INSULIN SYRINGE [facility] [place]) albuterol (for_ACCUNEB) Take 2.5 mg by 0 [...] once Atherosclerotic Heart for 1 dose. 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 flash glucose sensor Use as directed. 6 [...] With Other Forms Angina Pectoris (Angina Equivalent) ([facility]), Diabetes Mellitus Type 2 ([facility]), Hypertension Essential Primary lisinopriL Take [...] capsule daily. documented as of this encounter Plan of Treatment Not on filedocumented as of this encounter Procedures Procedure Name Priority Date/Time Associated Diagnosis Comme nts CT RETROSPECTIVE RAD - Routine 01/27/2020 3:32 Atherosclerotic Hear t Results for HEARTFLOW FFRCT (most inpatients PM CDT Disease [place] this p rocedure and all Coronary Artery With are in the outpatients) Other Forms Angina results Pectoris (Angina section. Equivalent) (HCC) documented in this encounter Results CT Retrospective Heartflow FFRct (01/27/2020 3:32 PM CDT) Anatomical Region Laterality Modality Chest, Cardiovascular RST LOS, Thoracic ARZ LOS, Cardiovascu lar N/A Other FLA LOS Specimen (Source) Anatomical Collection Method Collection Time Re ceived Time Location / / Volume Laterality 01/28/2020 10:00 AM CDT Impressions 01/28/2020 10:04 AM CDT The mild stenosis in the proximal second diagonal has a low likelihood of significant flow limitatio n based on FFRct analysis. Narrative 01/28/2020 10:04 AM CDT EXAM: ??CT RETROSPECTIVE HEARTFLOW FFRCT FFRct values were calculated for the cor onary artery lesions identified on the coronary CTA performed on 01/27/2020 (se e that exam's report for complete details). ??Diagrammatic representation of the FFRct analysis reside with the images from the source CTA exam. FINDINGS: CORONARY ARTERY FFRct ANALYSIS: LAD: No evidence of flow-limiting stenos is in the LAD. The has a FFRct value of 0.8. The second diagonal has a FFRct josie ue of 0.82. Circumflex: No evidence ??of flow-limiti ng stenosis in the circumflex. RCA: No evidence ??of flow-limiting sten osis in the RCA. FFRct Values >0.80 - Low likelihood of flow-limiting stenosis 0.75-0.80 - Borderline likelihood of henry w-limiting stenosis <0.75 - High likelihood of flow-limiting stenosis Procedure Note Julio Phillip M.D. - 01/28/2020For matting of this note might be different from the original. EXAM: CT RETROSPECTIVE HEARTFLOW FFRCT FFRct values were calculated for the cor onary artery lesions identified on the coronary CTA performed on 01/27/2020 (se e that exam's report for complete details). Diagrammatic representation of the FFRct analysis reside with the images from the source CTA exam. FINDINGS: CORONARY ARTERY FFRct ANALYSIS: LAD: No evidence of flow-limiting stenos is in the LAD. The has a FFRct value of 0.8. The second diagonal has a FFRct josie ue of 0.82. Circumflex: No evidence of flow-limiting stenosis in the circumflex. RCA: No evidence of flow-limiting stenos is in the RCA. FFRct Values >0.80 - Low likelihood of flow-limiting stenosis 0.75-0.80 - Borderline likelihood of henry w-limiting stenosis <0.75 - High likelihood of flow-limiting stenosis IMPRESSION: The mild stenosis in the proximal second diagonal has a low likelihood of significant flow limitatio n based on FFRct analysis. Koko SALINAS CT PROCEDURES documented in this encounter Visit Diagnoses Diagnosis Atherosclerotic Heart Disease [place] Cor onary Artery With Other Forms Angina Pectoris (Angina Equivalent) (HCC) documented in this encounter Additional Health Concerns Assessment Noted Time PHQ-9 Depression Total Score: 18 04/28/2018 11:27 AM C DT documented as of this encounter Care Teams Kitchen Assistant Relationship Specialty Start Date End Date Chris Billings M.B.B.S., M.D. PCP - General Family Medicine 01/10/20 05/21/[address] [place] [address] [place] [phone] documented as of this encounter
--- OUTSIDE RECORDS SUMMARY | 2022-05-21 11:29 | XMS_ITS | Encounter Summary ---
:1945 Author Organization [facility] Address [address] [place] [address] Care Team Providers Name Role Phone Chris Billings M.D. 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 [facility] Procedures ECG 12 [address] [place] [address] Referral ID Status Reason Start Date Expiration Date Visits Requ ested Visits Authorized [id number] Closed 12/16/2019 12/15/2020 1 1 Encounter Details Date Type Department Care Team Description 01/20/2020 Hospital Department of Ailyn Sims Atherosc lerotic Heart Encounter Laboratory [place] Disease [place] [facility] in [address] Coronary Artery With [place], [place], [place] Other Forms [place] [address] Pectoris (Angina [address] [phone] Equivalent) ([facility]) [place]BI PATEL (Work) [address] [phone] Social History Tobacco Use Types Packs/Day Years [...] do you attend nondenominational or Never 2021 restoration services? Do you [...] have completed or the highest Martin, MEd, DOUBLE NEEDLE STITCHER, [place]) degree you have received? Sex Assigned [...] once Atherosclerotic Heart for 1 dose. 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) flash glucose scanning Use as directed 1 each 0 09/18/20 18 05/01/2020 reader (FREESTYLE ILEANA 14 DAY READER) [facility] flash glucose sensor Use as directed. 6 [...] by mouth tabletIndications: daily. 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), Diabetes Mellitus Type 2 ([facility]), Hypertension Essential Primary lisinopril Take 1 tablet by 0 11/15/2008 01/21/20 20 (PRINIVIL,ZESTRIL) 10 mg mouth. tablet lisinopriL Take 1 tablet by 0 11/15/2008 [...] Date/Time Associated Diagnosis Comme nts ECG Routine 01/20/2020 8:49 AM Atherosclerotic Heart Results for this CDT Disease [place] Coronary proc edure are in Artery With Other Forms the results Angina Pectoris (Angina sect ion. Equivalent) ([facility]) documented in this encounter Results ECG 12 Lead (01/20/2020 8:49 AM CDT) P athologist Signature Ventricular Rate 66 BPM MUSE ECG/Min CT Interval 158 ms MUSE QRSD Interval 96 ms MUSE QT Interval 444 ms MUSE QTC Interval 465 ms MUSE P [place] 2 degrees MUSE R [place] -61 degrees MUSE T Wave [place] -25 degrees MUSE Specimen Anatomical Collection Method Collection Time Receive d Time (Source) Location / / Volume Laterality 01/20/2020 8:49 AM 0 9:01 CDT AM CDT Impressions MUSE - 01/20/2020 9:01 AM CDT Normal sinus rhythm Left anterior fascicular block Nonspecific ST and T wave abnormality When compared with ECG of 20-OCT-2019 13 :23, QRS axis has changed Reviewed by SEAN Jesus Narrative This result has an attachment that is no t available. Procedure Note Abhinav Sorenson M.D., Ph.D. - 0 IMPRESSION: Normal sinus rhythm Left anterior fascicular block Nonspecific ST and T wave abnormality When compared with ECG of 20-OCT-2019 13 :23, QRS axis has changed Reviewed by SEAN Jesus Ailyn Sims M.D. ECG ORDERABLES Performing Organization Address City/State/ZIP Code Phon e Number MUSE MUSE NA documented in this encounter Visit Diagnoses Diagnosis Atherosclerotic Heart Disease [place] Cor onary Artery With Other Forms Angina Pectoris (Angina Equivalent) (HCC) documented in this encounter Additional Health Concerns Assessment Noted Time PHQ-9 Depression Total Score: 18 04/28/2018 11:27 AM C DT documented as of this encounter Care Teams Hand Assembler For Puller Over Relationship Specialty Start Date End Date Chris Billings M.B.B.S., M.D. PCP - General Family Medicine 01/10/20 05/21/[address] [place] [address] [place] [phone] documented as of this encounter
--- OUTSIDE RECORDS SUMMARY | 2022-05-21 11:29 | XMS_ITS | Encounter Summary ---
:1945 Author Organization [facility] Address [address] [place] [address] Care Team Providers Name Role Phone Chris Billings M.D. Primary Care Provider [phone] Reason for Visit Reason Comments other Outpatient (Routine) - Closed Specialty Diagnoses / Procedures Referred By Contact Refer red To Contact Infectious Diseases Diagnoses Pancreatitis Chronic (HCC) Exocrine Pancreatic Insufficiency [facility] [address] [place] [address] Referral ID Status Reason Start Date Expiration Date Visits V isits Requested Authorized [id number] Closed Specialty 03/10/2020 03/10/2021 1 1 Services Required Encounter Details Date Type Department Care Team Description 03/13/2020 Comprehensive Visit Section of Freda Zurita M.D. [address] [place] [address] Pancreatitis Chronic (HCC); Infectious Diseases Katelyn Dixon M.D. [address] [place] [phone] Exocrine Pancreatic Insufficiency (HCC); in [facility] [address] [place] [address] Social History Tobacco Use Types Packs/Day Years [...] do you attend restorationism or Never 2021 caodaism services? 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 Sex Assigned at Date Recorded Male 05/21/2018 2:34 PM CDT documented as of this encounter Last Filed Vital Signs Vital Sign Reading Time Taken Comments Blood Pressure - - Pulse - - Temperature 36.6 ??C (97.8 ??F) 03/13/2020 2:20 PM CDT Respiratory Rate - - Oxygen Saturation - - Inhaled Oxygen Concentration - - Weight 102 kg (224 lb 3.3 oz) 03/13/2020 2:20 PM CDT Height - - Body Mass Index 27.99 03/07/2020 9:21 AM CDT documented in this encounter Consult Notes Katelyn Dixon M.D. - 03/13/2020 2:30 PM CDT SUBJECTIVE Consults Reason for Consult: being requested to be evaluated by infectious diseases for . History of present illness Patient is a 74 y.o. male with a medical history that is significant for chronic pancreatitis with chronic diarrhea, longstanding diabetes, hypertension, vitamin-D deficiency. Patient was in his usualstate of health until about 2 weeks ago when he developed worsening of his chronic diarrheal symptoms. On average patient usually has 5 loose stools a day and he has been having for over 18 months. To whom 2 weeks ago he noticed an increase in the frequency of his stools. GI pathogen panel was obtained and was positive for Yersinia. Since that time his symptoms have significantly improved and the patient is back to his baseline. He denied any fevers or chills. Denied any abdominal pain. Denied any sick contacts no recent travel. I have reviewed and updated the following: allergies, current medications, prior to admission medications, family history, medical history, social history, surgical history and problem list. ID Exposure history: Infectious disease exposure history is as follows: No recent sick contacts REVIEW OF SYSTEMS Pertinent items are noted in HPI; all other review of systems was negative. OBJECTIVE Admission Weight: 102 kg Current Weight: 102 kg PAST MEDICAL AND SURGICAL HISTORY @BIMMEDHISTORY@ @BIMSURGHISTORY@ FAMILY HISTORY Family History Problem Relation Age of Onset ??? Hypertension Mother ??? Heart attack Father age 76 ??? Depression Father ??? Asthma Sister ??? Asthma Brother ??? Depression Brother ??? Asthma Son SOCIAL HISTORY Social History Socioeconomic History ??? Marital status: Spouse name: Not on file ??? Number of children: Not on file ??? Years of education: Not on file ??? Highest education level: Master's degree (e.g., MA, MS, Martin, MEd, GARMENT PARTS CUTTER MACHINE, [employer]) Occupational History Employer: RETIRED Social Needs ??? Financial resource strain: Not hard at all ??? Food insecurity Worry: Never true Inability: Never true ??? Transportation needs Medical: No Non-medical: No Tobacco Use ??? Smoking status: Former Smoker Packs/day: 2.00 Years: 0.00 Pack years: 0.00 Types: Cigarettes, Pipe Start date: 07/13/1957 Last attempt to quit: 1980 Years since quittin.4 ??? Smokeless tobacco: Never Used Substance and Sexual Activity ??? Alcohol use: No Frequency: 2-4 times a month Drinks per session: 1 or 2 Binge frequency: Never ??? Drug use: Never ??? Sexual activity: Yes Partners: Female control/protection: Vasectomy Lifestyle ??? Physical activity Days per week: 1 day Minutes per session: 60 min ??? Stress: Not on file Relationships ??? Social connections Talks on phone: More than three times a week Gets together: Twice a week Attends caodaism service: 1 to 4 times per year Active member of club or organization: Yes Attends meetings of clubs or organizations: 1 to 4 times per year Relationship status: Not on file ??? Intimate partner violence Fear of current or ex partner: Not on file Emotionally abused: Not on file Physically abused: Not on file Forced sexual activity: Not on file Other Topics Concern ??? Not on file Social History Narrative ??? Not on file MEDICATIONS has a current medication list which includes the following prescription(s): albuterol, albuterol sulfate, atorvastatin, blood sugar diagnostic, budesonide- formoterol, chlorthalidone, cholecalciferol (vitamin d3), clopidogrel, diltiazem, diltiazem cd, escitalopram, flash glucose scanning reader, flash glucose sensor, insulin aspart u-100, insulin glargine, insulin nph and regular human, isosorbide mononitrate, lorazepam, losartan, metformin, metoprolol succinate, omega-3 fatty acids-fish oil, pen needle, diabetic, and syringe- needle,insulin,0.5 ml. ALLERGIES Allergies Allergen Reactions ??? Doxycycline Anaphylaxis Bactrim ??? Penicillin Hives Cerner Listed no Reactions ??? Sulfa (Sulfonamide Antibiotics) Other (see comments) Cerner Listed no Reactions ??? Amlodipine Hypotension ??? Victoza 2-Eyal [Liraglutide] GI intolerance ??? Gadavist [Gadobutrol] GI intolerance Patient vomited after administration VITAL SIGNS Temperature: [36.6 ??C] 36.6 ??C DIAGNOSTICS I have reviewed diagnostics. Studies of note include: ECG Demonstrating QTC Interval Date Value Ref Range Status 01/20/2020 465 ms Final Creatinine with Creatinine Clearance: Creatinine, P Date Value Ref Range Status 01/20/2020 1.27 0.74 - 1.35 mg/dL Final eGFR-Non Date Value Ref Range Status 09/17/2017 73 >=60 mL/min/BSA Final Comment: ----ADDITIONAL INFORMATION---- Estimated GFR calculated using the 2009 CKD_EPI creatinine equation. eGFR Non-Black, POCT Date Value Ref Range Status 10/11/2019 58 (L) >=60 mL/min/BSA Final Comment: ----ADDITIONAL INFORMATION---- Estimated GFR calculated using the 2009 CKD_EPI creatinine equation. eGFR Non-Black Date Value Ref Range Status 01/20/2020 55 (L) >=60 mL/min/BSA Final Comment: ----ADDITIONAL INFORMATION---- Estimated GFR calculated using the 2009 CKD_EPI creatinine equation. eGFR- Date Value Ref Range Status 09/17/2017 84 >=60 mL/min/BSA Final Comment: ----ADDITIONAL INFORMATION---- Estimated GFR calculated using the 2009 CKD_EPI creatinine equation. eGFR-Black, POCT Date Value Ref Range Status 10/11/2019 67 >=60 mL/min/BSA Final Comment: ----ADDITIONAL INFORMATION---- Estimated GFR calculated using the 2009 CKD_EPI creatinine equation. eGFR Black Date Value Ref Range Status 01/20/2020 63 >=60 mL/min/BSA Final Comment: ----ADDITIONAL INFORMATION---- Estimated GFR calculated using the 2009 CKD_EPI creatinine equation. WBC w/diff: Leukocytes Date Value Ref Range Status 10/20/2019 7.8 3.4 - 9.6 x10(9)/L Final Lymphocytes Date Value Ref Range Status 11/09/2018 1.47 0.95 - 3.07 x10(9)/L Final Eosinophils Date Value Ref Range Status 11/09/2018 0.71 (H) 0.03 - 0.48 x10(9)/L Final Monocytes Date Value Ref Range Status 11/09/2018 0.38 0.26 - 0.81 x10(9)/L Final Basophils Date Value Ref Range Status 11/09/2018 0.08 0.01 - 0.08 x10(9)/L Final Microbiology Results (last 72 hours) No results found for the last 72 hours. Diagnostics ASSESSMENT / PLAN #1 Pancreatitis Chronic (HCC) #2 Exocrine Pancreatic Insufficiency (HCC) #3 Diarrhea This is a 74-year-old gentleman with chronic pancreatitis with chronic diarrhea who had a transient worsening of his symptoms about 2 weeks ago that has since resolved. GI pathogen panel was positive for Yersinia. Patient denied any abdominal pain, fever or chills. Discussed with the patient that given the improvement in his symptoms no further treatment is warranted. If his symptoms worsen can repeat GI pathogen panel at that time. Patient can be seen in the ID clinic on as needed basis Katelyn Dixon M.D. documented in this encounter Plan of Treatment Not on filedocumented as of this encounter Visit Diagnoses Diagnosis Pancreatitis Chronic (HCC) Exocrine Pancreatic Insufficiency Diarrhea documented in this encounter Additional Health Concerns Assessment Noted Time PHQ-9 Depression Total Score: 18 04/28/2018 11:27 AM C DT documented as of this encounter Care Teams File Clerk Relationship Specialty Start Date End Date Chris Billings M.B.B.S., M.D. PCP - General Family Medicine 01/10/20 05/21/[address] [place] [address] [place] [id number] documented as of this encounter
--- OUTSIDE RECORDS SUMMARY | 2022-05-21 11:29 | XMS_ITS | Encounter Summary ---
:[address] [facility] Address [address] [place] [address] Care Team Providers Name Role Phone Chris Billings M.D. Primary Care Provider [phone] Reason for Referral Outpatient (Routine) - Closed Specialty Diagnoses / Procedures Referred By Contact Refer red To Contact Diagnoses Diabetes Mellitus Type 2 With Diabetic Neuropathy (HCC) Pancreatitis Chronic (HCC) Exocrine Pancreatic Insufficiency Keisha Lopez APRN, [facility] Procedures EUS C.N.P., M.S.N. [address] [place] [address] Referral ID Status Reason Start Date Expiration Date Visits Requ ested Visits Authorized [id number] Closed 12/17/2019 12/16/2020 1 1 Reason for Visit Outpatient (Routine) - Closed Specialty Diagnoses / Procedures Referred By Contact Refer red To Contact Diagnoses Diabetes Mellitus Type 2 With Diabetic Neuropathy (HCC) Pancreatitis Chronic (HCC) Exocrine Pancreatic Insufficiency Keisha Lopez APRN, [facility] Procedures EUS C.N.P., M.S.N. [address] [place], [place] [phone] Referral ID Status Reason Start Date Expiration Date Visits Requ ested Visits Authorized [id number] Closed 12/17/2019 12/16/2020 1 1 Encounter Details Date Type Department Care Team Description 03/07/2020 Hospital Division of Keisha Lopez Type 2 With Diabetic Neuropathy (HCC); Encounter Gastroenterology in T, HARNESS [employer]ER, Pancreat itis Chronic (HCC); [place], [place] CShayna, M.S.N. Exocrine Pancreatic Insufficiency (HCC) [address] [facility] [address] [place] [phone] [phone] Social History Tobacco Use Types Packs/Day Years [...] do you attend advent or Never 2021 rastafari services? Do you [...] have completed or the highest Martin, MEd, [employer] TR[employer], [place]) degree you have received? Sex Assigned at Date Recorded Male 05/21/2018 2:34 PM CDT documented as of this encounter Last Filed Vital Signs Vital Sign Reading Time Taken Comments Blood Pressure 161/85 03/07/2020 12:30 PM CDT Pulse 64 03/07/2020 12:40 PM CDT Temperature 36.7 ??C (98.1 ??F) 03/07/2020 12:49 PM CDT Respiratory Rate 21 03/07/2020 12:40 PM CDT Oxygen Saturation 94% 03/07/2020 12:40 PM CDT Inhaled Oxygen Concentration - - Weight 104 kg (229 lb 4.5 oz) 03/07/2020 9:21 AM CDT Height 190.6 cm (6' 3.04) 03/07/2020 9:21 AM CDT Body Mass Index 28.63 03/07/2020 9:21 AM CDT documented in this encounter Discharge Instructions AttachmentsThe following attachments cannot be sent through Care Everywhere. About Your Endoscopic Ultrasound (Georgian)documented in this encounter Medications at Time of [...] (INSULIN SYRINGE MISC) budesonide-formoteroL Inhale 2 puffs 2 1 Inhaler 12/16/19 20 06/30/2020 (SYMBICORT) 160-4.5 (two) times a day. mcg/actuation Start at 1 puff inhalerIndications: twice daily x 4 Asthma Extrinsic weeks, then 2 puffs Moderate (HCC) twice daily if tolerated. chlorthalidone Take 1 tablet (25 mg 90 tablet 3 11/24/2018 03/15/2020 (HYGROTEN) 25 mg tablet total) by mouth daily. insulin aspart U-100 Inject 20-25 Units 0 05/06/2020 (NovoLOG FlexPen) 100 under the skin as unit/mL injection needed. With meals insulin glargine Inject 20 Units 0 01/31/201504/2020 (LANTUS) 100 unit/mL under the skin at injection bedtime. insulin NPH and regular LW Addl 0 11/15/2008 0 05/04/2020 human (HumuLIN 70/30 Instr:Indicated for: U-100 KwikPen) 100 Diabetes unit/mL (70-30) injection metFORMIN (GLUMETZA) Take 1 tablet (1,000 180 tablet 3 06/2205/06/2020 1,000 mg 24 hr tablet mg total) by mouth 2 (two) times a day with meals. albuterol (for_ACCUNEB) Take 2.5 mg by 0 05/25/2020 2.5 mg /3 mL nebulizer nebulization every 6 solution (six) hours as needed for wheezing or shortness of breath. albuterol sulfate 90 Inhale 2 puffs every 0 08/1909/13/2020 mcg/actuation aerosol 6 (six) hours as powdr breath activated needed. dilTIAZem (CARDIZEM) 60 Take 1 tablet (60 mg 60 tablet 3 03/15/2020 mg tabletIndications: total) by mouth once Atherosclerotic Heart for 1 dose. 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 6 kit 3 8 05/01/2020 (FREESTYLE ILEANA 14 DAY SENSOR) kit gemfibroziL (LOPID) 600 Take 1 tablet by 0 200811/06/2021 mg tablet mouth. isosorbide mononitrate Take 1 tablet (30 mg 90 tablet 3 05/01/2020 (IMDUR) 30 mg 24 hr total) by mouth tabletIndications: daily. 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 metFORMIN (GLUMETZA) Take 1 tablet by [...] of this encounter Plan of Treatment Scheduled Orders Name Type Priority Associated Diagnoses Order S chedule Glucose, POCT Point of Care Timed As needed unt il Testing-Docked discontinued starting Device 03/07/2020 documented as of this encounter Procedures Procedure Name Priority Date/Time Associated Diagnosis Comme nts UPPER EUS Routine 03/07/2020 11:01 Diabetes Mellitus Type R esults for this AM CDT 2 With Diabetic procedure ar e in Neuropathy (HCC) the results Pancreatitis Chronic section . (HCC) Exocrine Pancreatic Insufficiency (HCC) ENDOSCOPIC Routine 03/07/2020 11:01 Diabetes Mellitus Type ULTRASOUND (EUS) AM CDT 2 With Diabetic Neuropathy (HCC) Pancreatitis Chronic (HCC) Exocrine Pancreatic Insufficiency (HCC) GLUCOSE POCT, B Routine 03/07/2020 9:38 AM Result s for this CDT procedure are i n the results section. documented in this encounter Results Upper EUS (03/07/2020 11:01 AM CDT) Specimen (Source) Anatomical Collection Method Collection Time Re ceived Time Location / / Volume Laterality 03/07/2020 11:01 AM CDT Impressions [facility] - 03/07/2020 12:45 PM CDT Post-op Diagnoses: ? - Pancreatic parenchymal abnormal ities consisting of atrophy and cysts ? were noted in the entire pancreas . ? - Pancreatic ductal abnormalities were identified consistening of ? dilation and stones (in the main PD at the level of the ampulla). ? - There was no sign of significan t pathology in the common bile duct. ? - A cystic lesion measuring 38 mm by 37 mm was identified in the right ? kidney. ? - There was no evidence of signif icant pathology in the visualized ? portion of the liver. ? - No specimens collected. Narrative [facility] - 03/07/2020 12:45 PM CDT Gonda 2 GI Patient Name: Jonnathan Costa Date of : 1945 Age: 74 Gender: Male Procedure Date: 03/07/2020 Procedure: ? Upper EU S Providers: ? Laz carbajal MD, Alfa Salguero MD (Fellow) Referring Provider: ?Emil solomon MD Pre-op Diagnoses: ?Dilated dahl creatic duct on CT scan, Weight loss, ? Tacoayse hawkre to thrive Recommendation: ? - The patient will be observed po st-procedure, until all discharge ? criteria are met. ? - Discharge patient to home. ? - Resume previous diet today. ? - Return to referring physician a s previously scheduled. ? - If the patient develops abdomin al pain or steatorrhea attibuted to PD ? obstruction from stone material, would recommend ERCP for stone ? clearance from the main PD. Findings: ? ENDOSONOGRAPHIC FINDING: : ? Pancreatic parenchymal and ductal abnormalities were noted in the entire ? pancreas. The pancreatic parenchy ma was extremely atrophic, especially ? in the neck, body, and tail of th e pancreas. The pancreas duct was ? notably dilated and ectatic (samira uring 7 mm in the neck of the ? pancreas). Throughout the pancrea s dilated side-branches and cysts were ? identified. The largest cyst in t he uncinate was 16 mm x 15 mm, the ? largest cyst in the body of the p ancreas measured 6 mm x 5 mm, and the ? largest cyst conglomeration in th e tail of the pancreas measured 20 mm x ? 10 mm. The cysts appeared to comm unicate with the main pancreatic duct. ? There was no internal debris with in the cysts. There was no mass seen ? within the the lumen of the cysts . No mass was seen in the pancreatic ? parenchyma. There were stones nereyda ntified in the main PD at the level of ? the ampulla. ? There was no sign of significant endosonographic abnormality in the ? common bile duct. The maximum yunior meter of the duct was 4 mm. ? An anechoic lesion suggestive of a cyst was identified in the right ? kidney. The lesion measured 38 mm by 37 mm in maximal cross-sectional ? diameter. There was a single comp artment without septae. The outer wall ? of the lesion was thin. There was no internal debris within the ? fluid-filled cavity. ? There was no sign of significant endosonographic abnormality in the ? visualized portion of the liver. Homogeneous parenchyma was identified. ? Visualized portions of the spleen , left adrenal gland, left kidney and ? gallbladder were normal on ultras ound examination. Procedural Details: ? The patient was seen, evaluated, history reviewed, airway and heart-lung ? exams were performed by licensed provider and were satisfactory for ? planned level of sedation care. ? The risks, benefits and alternati ves for the procedure and sedation were ? discussed and informed consent wa s obtained. A procedural pause was ? conducted in the presence of assi sting personnel to verify the correct ? patient identity and procedure to be performed. Throughout the ? procedure, the patient's blood pr essure, pulse, and oxygen saturations ? were monitored continuously. The Endosonoscope was introduced through ? the mouth, and advanced to the se cond part of duodenum. The upper EUS ? was accomplished with ease. The p atient tolerated the procedure well. Complications: ? No immedia te complications. Estimated Blood Loss: ? None. Attending Participation: I was present a nd participated during the entire ? pro cedure, including non-baum portions. Laz Escobedo MD 03/07/2020 12:44:52 PM This report has been signed electronical ly. Number of Addenda: 0 Note Initiated On: 03/07/2020 11:01 AM Keisha Lopez APRN C.N.P., M.S.N. GI PROCEDURE ORDER ELISHA Performing Organization Address City/State/ZIP Code Phon e Number [facility] NA (ABNORMAL) Glucose, POCT (03/07/2020 9:38 AM CDT) Analysis Performed At Patho logist Time Signature Glucose, POCT, 219 (H) 70 - 140 03/07/2020 [facility] B mg/dL 9:40 AM CDT Site Capillary 03/07/2020 [facility] 9:40 AM CDT Specimen Anatomical Collection Method Collection Time Receive d Time (Source) Location / / Volume Laterality Blood 03/07/2020 9:38 AM 0 9:40 CDT AM CDT Unknown Provider LAB POCT ORDERABLES-MANUAL Performing Organization Address City/State/ZIP Code Phon e Number [facility] [address] [place] [address] OUTPATIENT LABS [facility] [place], [place] [id number] [place] [address] documented in this encounter Visit Diagnoses Diagnosis 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) Pancreatitis Chronic (HCC) Exocrine Pancreatic Insufficiency documented in this encounter Administered Medications Inactive Administered Medications - up to 3 most recent administrations Medication Order MAR Action Action Date Dose Rate Site lactated ringers Continued from OR 03/07/2020 11:42 AM 100 mL/hr 100 mL/hr 100 mL/hr, intravenous, CDT Continuous, Starting on Fri03/07/20 at 1145, PACU & Post-Op documented in this encounter Additional Health Concerns Assessment Noted Time PHQ-9 Depression Total Score: 18 04/28/2018 11:27 AM C DT documented as of this encounter Care Teams Neck Band Operator Relationship Specialty Start Date End Date Chris Billings M.B.B.S., M.D. PCP - General Family Medicine 01/10/20 05/21/[address] [place] [address] KOBI Marc [id number] documented as of this encounter
--- OUTSIDE RECORDS SUMMARY | 2022-05-21 11:29 | XMS_ITS | Encounter Summary ---
:1945 Author Organization [facility] Address [address] [place] [address] Care Team Providers Name Role Phone Chris Billings M.D. 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 [facility] Procedures CT Cardiac Angiogram with Coronary Arteries with IV Contrast [address] [place] [address] Referral ID Status Reason Start Date Expiration Date Visits Requ ested Visits Authorized [id number] Closed 01/20/2020 01/19/2021 1 1 Encounter Details Date Type Department Care Team Description 01/27/2020 Hospital Encounter Department of [place], Atherosc lerotic Heart Radiology, Leanne Champagne M.D. Disease [place]q Coronary Building, in [address] Artery With Other Forms [place], [place] Angina Pectori s (Angina [place] [phone] Equivalent) ([facility]) [address] [phone] [place], [place] (Work) [phone] Social History Tobacco Use Types Packs/Day [...] do you attend moravian or Never 2021 caodaism services? Do you [...] have completed or the highest Martin, MEd, FOOD HANDLER, CAYDEN) degree you have received? Sex Assigned at Date Recorded Male 05/21/2018 2:34 PM CDT documented as of this encounter Last Filed Vital Signs Vital Sign Reading Time Taken Comments Blood Pressure 151/70 01/27/2020 3:05 PM CDT Pulse 67 01/27/2020 3:05 PM CDT Temperature - - Respiratory Rate 22 01/27/2020 3:05 PM CDT Oxygen Saturation 93% 01/27/2020 3:05 PM CDT Inhaled Oxygen Concentration - - Weight 105 kg (232 lb 2.3 oz) 01/27/2020 2:05 PM CDT Height 190.6 cm (6' 3.04) 01/27/2020 2:05 PM CDT Body Mass Index 28.99 01/27/2020 2:05 PM CDT documented in this encounter Medications at Time of [...] SYRINGE-NEEDLE,INSULIN,0 0 .5 ML (INSULIN SYRINGE MISC) dilTIAZem CD (CARDIZEM Take 1 capsule (240 90 capsule 3 12/2803/15/2020 CD/CARTIA XT) 240 mg 24 mg total) by mouth hr capsuleIndications: daily. 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 Do not crush or chew. albuterol [...] once Atherosclerotic Heart for 1 dose. 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 6 [...] by mouth tabletIndications: daily. 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 omega-3 fatty acids-fish Take 1 g by mouth 0 03/15/2020 oil 300-1,000 mg capsule daily. documented as of this encounter Nursing Notes Pat Wilhelm R.N. - 01/27/2020 3:15 PM CDT A review of the patients current medications was completed under the context of radiology care priorto contrast/medication administration. CT Cardiac Metoprolol/Lopressor Administration Screening: Does patient have an allergy or hypersensitivity to beta-blockers? No If no???continue. User message: Beta-Blockers & Calcium Channel Blockers: Acebutolol (Sectral); Atenolol (Tenormin); Betaxolol (Kerlone); Bisoprolol (Zebeta); Carvedilol (Coreg); Esmolol (Brevibloc); Labetalol (Trandate); Metoprolol (Toprol); Nadolol (Corgard); Nebivolol (Bystolic); Penbutolol (Levatol); Pindolol (Visken); Propranolol (Inderal); Sotalol (Betapace); Dilitiazem (Cardizem); VeraPAMIL (Isoptin, Calan). Is patient currently on a beta-chasidy infusion or calcium channel chasidy infusion? No If no???continue. Is patient or ? No If no???continue. Does patient have history of asthma or reactive airway disease? Yes If no???continue. Does patient have history of congestive heart failure class III or IV or documented EF less than 40%?No. If no???continue. Does patient have history of 2nd or 3rd degree heart block? No If no???continue. Does patient have a permanent pacemaker? No If yes, done - notify radiologist, if no???Is patient 18 years old or older? Yes No - continue and administer meds. CT Cardiac Nitroglycerin Administration Screening: Is patient scheduled for a radiology exam with nitroglycerin? No If yes???continue. Is patient???s systolic blood pressure greater than appropriate level per age (per table in med ref document)? Yes If yes???continue. Does patient report a history of know hypersensitivity to nitroglycerin? No If no...Continue. Does patient report having a history of aortic stenosis or hypertrophic cardiomyopathy (HOCM)? No Ifno???continue. Is patient currently wearing a nitroglycerin patch or has taken isosorbide dinitrate or isosorbide mononitrate in the past 48 hours? No If no???continue. Has patient taken Sildenafil (Viagra) or (Revatio), Vrdenafil (Levitra), Tadalafil (Cialis) or (Adcirca) within 48 hours? No If no???continue. User message: Nitro is administered in scan room according to scanning sequence. documented in this encounter Miscellaneous Notes Result Encounter Note - Lulu Huang R.N. - 01/28/2020 9:37 AM CDT Name of person contacted: Patient Relationship to patient: Not applicable Call back number: [phone] Knife Setter Assembler: Not applicable Information provided: Result notes for CT Cardiac Angiogram with Coronary Arteries with IV Contrast and message per Simi Bañuelos MD. Patient verified he is taking isosorbide mononitrate ER 30 mg daily and chlorthalidone 25 mg daily. No additional questions or concerns at time of call. automobiles salesperson/patient received and understood education/information provided: Yes automobiles salesperson/patient agreed to the Plan of Care: Yes documented in this encounter Plan of Treatment Not on filedocumented as of this encounter Procedures Procedure Name Priority Date/Time Associated Diagnosis Comme nts CT CARDIAC RAD - Routine 01/27/2020 3:00 Atherosclerotic Heart Re sults for ANGIOGRAM WITH (most inpatients PM CDT Disease Alutiiq this pr ocedure CORONARY and all Coronary Artery With are in the ARTERIES WITH IV outpatients) Other Forms Angina resul ts CONTRAST Pectoris (Angina section. Equivalent) (HCC) documented in this encounter Results CT Cardiac Angiogram with Coronary Arteries with IV Contrast (01/27/2020 3:00 PM CDT) Anatomical Region Laterality Modality Cardiac, Cardiovascular RST LOS, N/A Compute d Tomography, Computed Thoracic ARZ LOS, Cardiovascular FLA Logan ography LOS Specimen (Source) Anatomical Collection Method Collection Time Re ceived Time Location / / Volume Laterality 01/27/2020 2:57 PM CDT Impressions 01/27/2020 3:24 PM CDT 1. ??Triple-vessel disease with up to mild stenosis of the proximal second diagonal.; CAD-RADS 2. 2. ??Moderate right and small-moderate l eft pleural effusions. Based on the results of the coronary CTA , this study is being sent to [facility] for coronary FFRct analysis. ??FFRct res ults will be reported separately when analysis by [facility] is complete Narrative 01/27/2020 3:24 PM CDT EXAM: ??CT CARDIAC ANGIOGRAM WITH CORONARY ARTERIES WITH IV CONTRAST COMPARISON: ??04/22/2018 ? FINDINGS: ? CORONARY ARTERIES: ?? Origins: Normal ? Dominance: Right ?? Left Main Coronary: No stenosis. ? Left Anterior Descending: ??Multifocal p redominantly calcified plaque with up to mild stenosis of the second diagonal bra nch at its origin. Left Circumflex: Multifocal predominantl y calcified plaque with up to minimal stenosis. ?? Right Coronary: Multifocal predominantly calcified plaque with up to minimal stenosis. OTHER CARDIAC FINDINGS: ?? Mitral annulus calcification. Qualitativ florentino low-normal left ventricular systolic function. No regional wall motion abnorm ality. ADDITIONAL FINDINGS: ? Moderate right and small-moderate left p leural effusions. There is focal lucency in the posterior elements of a mid-lower thoracic vertebral body though this is poorly characterized and possibly artifa ctual. Unchanged 2 mm nodule in the lateral basal left lower lobe (7/44). CAD-RADS CATEGORIES: (based on most olinda re single lesion) ?? 0: 0%, No stenosis ?? 1: 1-24%, Minimal stenosis ?? 2: 25-49%, Mild stenosis ?? 3: 50-69%, Moderate stenosis ?? 4: 70-99%, Severe stenosis ?? 5: 100%, Occluded ? Modifiers: ??N: Non-diagnostic segment(s ) ??S: Stent ??G: Graft ??V: Vulnerable plaque ? Procedure Note Julio Phillip M.D. - 01/27/2020For matting of this note might be different from the original. EXAM: CT CARDIAC ANGIOGRAM WITH CORONARY ARTERIES WITH IV CONTRAST COMPARISON: 04/22/2018 FINDINGS: CORONARY ARTERIES: Origins: Normal Dominance: Right Left Main Coronary: No stenosis. Left Anterior Descending: Multifocal pre dominantly calcified plaque with up to mild stenosis of the second diagonal bra nch at its origin. Left Circumflex: Multifocal predominantl y calcified plaque with up to minimal stenosis. Right Coronary: Multifocal predominantly calcified plaque with up to minimal stenosis. OTHER CARDIAC FINDINGS: Mitral annulus calcification. Qualitativ florentino low-normal left ventricular systolic function. No regional wall motion abnorm ality. ADDITIONAL FINDINGS: Moderate right and small-moderate left p leural effusions. There is focal lucency in the posterior elements of a mid-lower thoracic vertebral body though this is poorly characterized and possibly artifa ctual. Unchanged 2 mm nodule in the lateral basal left lower lobe (7/44). CAD-RADS CATEGORIES: (based on most olinda re single lesion) 0: 0%, No stenosis 1: 1-24%, Minimal stenosis 2: 25-49%, Mild stenosis 3: 50-69%, Moderate stenosis 4: 70-99%, Severe stenosis 5: 100%, Occluded Modifiers: N: Non-diagnostic segment(s) S: Stent G: Graft V: Vulnerable plaque IMPRESSION: 1. Triple-vessel disease with up to mild stenosis of the proximal second diagonal.; CAD-RADS 2. 2. Moderate right and small-moderate lef t pleural effusions. Based on the results of the coronary CTA , this study is being sent to [facility] for coronary FFRct analysis. FFRct resul ts will be reported separately when analysis by [facility] is complete Koko SALINAS CT PROCEDURES documented in this encounter Visit Diagnoses Diagnosis Atherosclerotic Heart Disease Alutiiq Cor onary Artery With Other Forms Angina Pectoris (Angina Equivalent) (HCC) documented in this encounter Administered Medications Inactive Administered Medications - up to 3 most recent administrations Medication Order MAR Action Action Date Dose Rate Site iohexoL 350 mg iodine/mL solution Given 01/27/2020 2:53 PM CDT 9 7 mL 1-200 mL (OMNIPAQUE) 1-200 mL, intravenous, Once in imaging, contrast, Starting on Hali 01/27/20 at 1405, For 1 dose, Imaging Protocol Orders, Dose per Radiant Medication Guidelines nitroglycerin SL tablet 0.4 mg (NITROSTA T) Given 01/27/2020 2:41 PM CDT 0.4 mg 0.4 mg, sublingual, Once in imaging, other, for imaging use in pts 5 years and older, Starting on Hali 01/27/20 at 1405, For 1 dose, Imaging Protocol Orders, May administer up to 3 doses per episode. Dissolve under the tongue. Do NOT crush, chew, split or swallow tablet. sodium chloride (PF) 0.9 % injection 1-1 00 mL Given 01/27/2020 2:54 PM CDT 38 mL 1-100 mL, intravenous, Once, On Hali 01/27/20 at 1415, For 1 dose, Imaging Protocol Orders documented in this encounter Additional Health Concerns Assessment Noted Time PHQ-9 Depression Total Score: 18 04/28/2018 11:27 AM C DT documented as of this encounter Care Teams Space Scheduler Relationship Specialty Start Date End Date Chris Billings M.B.B.S., M.D. PCP - General Family Medicine 01/10/20 05/21/[address] [place] [address] [place] [phone] documented as of this encounter
--- OUTSIDE RECORDS SUMMARY | 2022-05-21 11:29 | XMS_ITS | Encounter Summary ---
:1945 Author Organization [facility] Address [address] [place] [address] Care Team Providers Name Role Phone Chris Billings M.D. Primary Care Provider [phone] Reason for Referral Outpatient (Routine) - Closed Specialty Diagnoses / Procedures Referred By Contact Refer red To Contact Endocrinology Diagnoses Diabetes Mellitus Type 2 With Diabetic Neuropathy (HCC) Diarrhea Fatigue Emil Zurita M.D. [facility] [address] [place], [place] [phone] Referral ID Status Reason Start Date Expiration Date Visits Requ ested Visits Authorized [id number] Closed 02/17/2020 02/16/2021 1 1 Encounter Details Date Type Department Care Team Description 02/10/2020 Clinical Communication Division of [facility] in [place], [place] [address] [facility] [address] [place] [phone] Social History Tobacco Use Types Packs/Day Years [...] do you attend taoism or Never 2021 anglican services? Do you belong to any clubs or No 10/09/2021 organizations such as taoism groups, unions, fraTravelnuts or athletic groups, or school groups? How [...] have completed or the highest Martin, MEd, WELDING TECHNICIAN, CAYDEN) degree you have received? Sex Assigned at Date Recorded Male 05/21/2018 2:34 PM CDT documented as of this encounter Miscellaneous Notes Addendum Note - Mare Batista RMauroN. - 03/02/2020 9:52 AM CDT Addended by: MARE BATISTA on: 03/02/2020 09:52 AM Modules accepted: Orders Addendum Note - Mare Batista R.N. - 02/29/2020 1:07 PM CDT Addended by: MARE BATISTA on: 02/29/2020 01:07 PM Modules accepted: Orders Telephone Encounter - Mare Batista R.N. - 02/29/2020 12:34 PM CDT SUBJECTIVE CHIEF COMPLAINT / REASON FOR CALL No chief complaint on file. Information Discussed Updated patient per Dr. Zurita His stool pathogen panel showed Yersenia which is a bacterial infection and may be contributing to his symptoms of diarrhea. I have asked for an ID eConsult for treatment recommendations. Will likely need a short course of antibiotics. Patient voiced understanding and was appreciative of call. Reviewed patient's upcoming itinerary. ADDENDUM: Updated patient on Dr. Zurita's message regarding hemoglobin A1C. PLAN Disposition/Recommendation: awaiting ID recommendations Information/Education: patient/caller able to teach back Caller agreeable to plan of care: yes The following references were used: nursing clinical judgement and provider Dr. Zurita Telephone Encounter - Mare Batista R.N. - 02/17/2020 2:36 PM CDT SUBJECTIVE CHIEF COMPLAINT / REASON FOR CALL No chief complaint on file. Information Discussed Updated patient of the GI pathogen panel that he can complete now as it is a mail out. Additionally,updated him that fasting glucose was added to his appointments coming up next month. Patient voiced understanding and was appreciative of call. PLAN Disposition/Recommendation: per the above Information/Education: patient/caller able to teach back Caller agreeable to plan of care: yes The following references were used: nursing clinical judgement and provider Dr. Zurita Telephone Encounter - Mare Batista R.N. - 02/14/2020 11:26 AM CDT SUBJECTIVE CHIEF COMPLAINT / REASON FOR CALL No chief complaint on file. Information Discussed Spoke with patient who reports his symptoms have gotten better since calling us last. He reports thefollowin daily BM's in the morning (down from 5-6) Cecil 6 (was Cecil 7) No blood in his stool Since getting sick 2 years ago, patient reports losing 30 pounds gradually. He sates I'm real happyabout it. He states he's not interested in food as much and he's not as easily hungered. At this time his main symptom or concern right now is very low energy. His daughter, who is a physician, was visiting the patient yesterday and encouraged him to investigate more about his elevated blood pressure and the many medications he's on for this. Encouraged patient to follow up with his card iologist and new primary care provider regarding this. Updated him message would be passed along to Dr. Zurita for review. Encouraged patient to contact us with any further questions or concerns. Patient voiced understanding and was appreciative of call. PLAN Disposition/Recommendation: notified provider and awaiting recommendations Information/Education: patient/caller able to teach back Caller agreeable to plan of care: yes The following references were used: nursing clinical judgement and provider Dr. Zurita documented in this encounter Plan of Treatment Scheduled Referrals Name Type Priority Associated Order Schedule Diagnoses Endocrinology - Outpatient Referral Routine Diabetes Mellitus Expected: Diabetes consult Type 2 With 03/13/2020 (clinic) Diabetic Neuropathy (Approxi mate), ([facility]) Expires: Diarrhea 02/14/2023 Fatigue documented as of this encounter Results (ABNORMAL) Glucose, Fasting (03/04/2020 8:01 AM CDT) P athologist Signature Glucose, P 226 (H) 70 - 100 03/04/2020 DTL mg/dL 8:42 AM CDT Last Intake 14 hr 03/04/2020 DTL 8:30 AM CDT Specimen Anatomical Collection Method Collection Time Receive d Time (Source) Location / / Volume Laterality Blood (Blood, 03/04/2020 8:01 AM 03/04/20 20 8:30 Venous) CDT AM CDT Emil Zurita M.D. LAB BLOOD NON ADD-ON Performing Organization Address City/State/ZIP Code Phon e Number [facility] - [address] [place], [place] [address] [facility] [place] [address] [facility] [address] (ABNORMAL) GI Pathogen Panel, PCR, Feces (02/24/2020 5:00 AM CDT) Component Value Ref Range Test Analysis Performed Pathologis t Method Time At Signature Specimen Source STOOL 02/25/2020 DTL 1:52 PM CDT Campylobacter Negative Negative 02/25/2020 DTL species 1:52 PM CDT C. difficile toxin Negative Negative 02/25/2020 DTL 1:52 PM CDT Plesiomonas Negative Negative 02/25/2020 DTL shigelloides 1:52 PM CDT Salmonella species Negative Negative 02/25/2020 DTL 1:52 PM CDT Vibrio species Negative Negative 02/25/2020 DTL 1:52 PM CDT Vibrio cholerae Negative Negative 02/25/2020 DTL 1:52 PM CDT Yersinia species Positive Negative 02/25/2020 DTL (A) 1:52 PM CDT Enteroaggregative E. Negative Negative 02/25/2020 DTL coli (EAEC) 1:52 PM CDT Enteropathogenic E. Negative Negative 02/25/2020 DTL coli (EPEC) 1:52 PM CDT Enterotoxigenic E. Negative Negative 02/25/2020 DTL coli (ETEC) 1:52 PM CDT Shiga toxin Negative Negative 02/25/2020 DTL producing E. coli 1:52 PM CDT Shigella/Enteroinvas Negative Negative 02/25/2020 DTL akil E. coli 1:52 PM CDT Cryptosporidium Negative Negative 02/25/2020 DTL species 1:52 PM CDT Cyclospora Negative Negative 02/25/2020 DTL cayetanensis 1:52 PM CDT Entamoeba Negative Negative 02/25/2020 DTL histolytica 1:52 PM CDT Giardia Negative Negative 02/25/2020 DTL 1:52 PM CDT Adenovirus F40/41 Negative Negative 02/25/2020 DTL 1:52 PM CDT Astrovirus Negative Negative 02/25/2020 DTL 1:52 PM CDT Norovirus GI/GII Negative Negative 02/25/2020 DTL 1:52 PM CDT Rotavirus Ag, F Negative Negative 02/25/2020 DTL 1:52 PM CDT Sapovirus Negative Negative 02/25/2020 DTL 1:52 PM CDT Comment: ----ADDITIONAL INFORMATION---- This assay is performed using the FDA-cl eared FilmArray GI Panel ([employer] Semi-Urgent This is a semi-urgent result [facility] - ([place]) [facility] Specimen Anatomical Collection Method Collection Time Receive d Time (Source) Location / / Volume Laterality Stool (Stool) 02/24/2020 5:00 AM 02/25/20 20 CDT 12:05 PM CDT Resulting Agency Comment Mailed In Specimen Emil Zurita M.D. 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 PCP - General Family Medicine 01/10/20 05/21/[address] [place] [phone] documented as of this encounter
--- OUTSIDE RECORDS SUMMARY | 2022-05-21 11:29 | XMS_ITS | Encounter Summary ---
:1945 Author Organization [facility] Address [address] [place] [address] Care Team Providers Name Role Phone Chris Billings M.D. Primary Care Provider +1 [phone] Reason for Visit Reason Comments COVID Nurse Line Encounter Details Date Type Department Care Team Description 01/24/2020 Clinical Communication Department of DHRUV Bañuelos Nurse Line Cardiovascular Koko Champagne M.D. Diseases in [address] [address] [place], [place] [phone] [address] (Work) [phone] Social History Tobacco Use Types Packs/Day Years [...] do you attend hindu or Never 2021 taoist services? Do you [...] have completed or the highest Martin, MEd, SCAFFOLD SETTER, CAYDEN) degree you have received? Sex Assigned at Date Recorded Male 05/21/2018 2:34 PM CDT documented as of this encounter Miscellaneous Notes Telephone Encounter - Kassidy Hardy, KristieN. - 01/24/2020 12:21 PM CDT COVID-19 Nurse Appointment Scheduling Screening ASSESSMENT COVID Schedule Appointment Screening In the past 14 days, have you been tested for COVID-19 with a positive or pending result?: No testing completed (Continue with screening) In the past 5 days have you experienced any of the following symptoms?: New shortness of breath, Newmyalgias (muscle aches) Have you had close contact with a person who has a LABORATORY CONFIRMED case of COVID-19?: No - Continue screening. Which of your symptoms have been present in the last 48 hours?: New shortness of breath Do you have any urgent symptoms?: None- Patient meets criteria for testing. PLAN Endpoint recommendation: Appropriate for COVID testing, advised to be swabbed for COVID-19, sent to [place], [place] . Because testing is recommended, we will have to delay your appointment for at least 14 days. Care Points provided: STANDARD PRECAUTIONS FOR ALL PATIENTS: Wash hands often with soap and water for at least 20 seconds, especially after blowing your nose, coughing, sneezing, or having been in a public place. If soap and water aren't available, use a hand dispensing lead that contains at least 60% alcohol. Avoid close contact with anyone who may be exhibiting respiratory symptoms such as coughing and sneezing. Avoid touching your eyes, nose and mouth. Clean and disinfect frequently touched surfaces daily. Cover your mouth and nose with a cloth face cover when around others or in public. The cloth face cover is not a substitute for social distancing. Continue to keep about 6 feet between yourself andothers. Stay home as much as possible (only going out for essential items or medical care). Educational Resource: https://www.cdc.gov/coronavirus/2019-ncov/bhwcerj-rrhmliq-rwhj/index.html RECOMMENDATIONS TESTING CRITERIA IS MET: Stay home except to get medical care. Avoid public areas(do not go to work, school, etc). Avoid public transportation, riding sharing (if possible) or taxis. Stay in a specific sick room if possible and away from other people and pets in your home. Use a s eparate bathroom if possible. Wear a cloth face covering, over your nose and mouth if you must be around other people even at home). Contact employer/occupational health department to notify them that they are being tested. If patient is living with a high risk family member, seek medical advice from their primary care provider. *High risk includes family member with heart of lung disease (e.g. asthma, COPD), immunosuppression (e.g. cancer, HIV/AIDS), women, or 65 years and older. Go to [facility] emergency department if any of the following occur: 1) New shortness of breath at rest, 2) Pain, pressure or tightness unrelated to coughing in the chest, jaw or arm, 3) Newly confused or unable to stay alert and awake. Notify primary care provider if any new or worsening symptoms. Education Resources: https://www.cdc.gov/coronavirus/2019-ncov/fj-foq-lxp-sick/nhftb-stkw-noyd.html Education: patient/caregiver Patient/caregiver able to teach back Patient agreeable to plan of care: Yes The following references were used: [facility] novel coronavirus (COVID- 19) resources Nursing judgement Telephone Encounter - Nikita Watters - 01/24/2020 12:02 PM CDT 1. In the past 5 days, do you, anyone in the household, or anyone you have had prolonged exposure have (any of the following)? a. Fever ? 38.0 C (100.5 F) last 24 hours? no 2. In the past 5 days do you, anyone in the household, or anyone you have had prolonged exposure to have new symptoms (Specifically: cough, shortness of breath, respiratory distress, sore throat, diarrhea, chills, myalgia's (muscle aches), loss of smell, or change or loss of taste sensation)? yes 3. In the past 14 days have you, anyone in the household, or anyone you have had prolonged exposure to had close contact with persons who are under quarantine or isolation for COVID? no 4. In the last 14 days, have you, anyone in the household, or anyone you have had prolonged exposureto had close contact with a patient with known or possible COVID-19? no 5. In the past 14 days have you been tested for COVID-19 with a positive or pending result? no Route reply to: Monserrat AYALA [facility] SCHEDULING Scheduling Contact Number:[phone] documented in this encounter Plan of Treatment Not on filedocumented as of this encounter Visit Diagnoses Not on filedocumented in this encounter Additional Health Concerns Infection Onset Date Last Indicated Resolved Time COVID19 Pending 01/24/2020 01/24/2020 01/25/2020 12:58 AM CDT Assessment Noted Time PHQ-9 Depression Total Score: 18 04/28/2018 11:27 AM C DT documented as of this encounter Care Teams Die Machine Operator Relationship Specialty Start Date End Date Chris Billings M.B.B.S., M.D. PCP - General Family Medicine 01/10/20 05/21/[address] [place] [address] [place] Marc [phone] documented as of this encounter
--- OUTSIDE RECORDS SUMMARY | 2022-05-21 11:29 | XMS_ITS | Encounter Summary ---
:1945 Author Organization [facility] Address [address] [place] [address] Care Team Providers Name Role Phone Chris Billings M.D. Primary Care Provider [phone] Encounter Details Date Type Department Care Team Description 02/17/2020 Hospital Encounter Department of Parminder, Diabetes Mellitus Type 2 With Diabetic Neuropathy (HCC); Laboratory Medicine Rhoda Stein Diarrhea; and Pathology, [address] [place] [address], in [place], [place] [address] [place] [address] [place], [place] (Work) [phone] Social History Tobacco Use Types Packs/Day Years [...] do you attend taoist or Never 2021 yarsani services? Do you belong to any clubs or No 10/09/2021 organizations such as taoist groups, unions, fraThemBid or athletic groups, or school groups? How [...] have completed or the highest Martin, MEd, WHEEL MILL OPERATOR, CAYDEN) degree you have received? Sex [...] daily SYRINGE-NEEDLE,INSULIN,0 0 .5 ML (INSULIN SYRINGE [facility]) albuterol (for_ACCUNEB) Take 2.5 mg by 0 [...] once Atherosclerotic Heart for 1 dose. 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 6 [...] by mouth tabletIndications: daily. 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 GI PATHOGEN PANEL, Routine 02/24/2020 5:00 AM Diabetes Mellitu s Results for this PCR, F CDT Type 2 With Diabetic procedu re are in Neuropathy (HCC) the results Diarrhea section. Fatigue documented in this encounter Results (ABNORMAL) Yersinia Culture, Feces (02/24/2020 5:00 AM CDT) [facility] Method Time Signature Yersinia YERSINIA 03/19/2020 DTL Culture, F MAK (A) 1:22 PM CDT Comment: This test may be reportable to your stat e health department. Please review specific state and local [facility] for reporting information. Semi-Urgent Result. Semi-Urgent This is a semi-urgent result [facility] ([place] Specimen Anatomical Collection Method Collection Time Receive d Time (Source) Location / / Volume Laterality Stool 02/24/2020 5:00 AM 0 CDT 11:34 AM CDT Resulting Agency Comment Mailed In Specimen Emil Zurita M.D. LAB MICROBIOLOGY - GENERAL O ODELLERASHAY Performing Organization Address City/State/ZIP Code Phon e Number [facility] - [facility] [place], [place] [address] [facility] [place] [address] Laboratories-[facility] [address] [facility] (ABNORMAL) GI Pathogen Panel, PCR, Feces (02/24/2020 [...] using the FDA-cl eared FilmArray GI Panel ([employer] Semi-Urgent This is a semi-urgent result [facility] - () [facility] Specimen Anatomical Collection Method Collection Time Receive d Time (Source) Location / / Volume Laterality Stool (Stool) 02/24/2020 5:00 AM 02/25/20 20 CDT 12:05 PM CDT Resulting Agency Comment Mailed In Specimen Emil Zurita M.D. 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 PCP - General Family Medicine 01/10/20 05/21/[address] [place] [address] [place] [address] documented as of this encounter
--- OUTSIDE RECORDS SUMMARY | 2022-05-21 11:29 | XMS_ITS | Encounter Summary ---
:1945 Author Organization [facility] Address [address] [place] [address] Care Team Providers Name Role Phone Chris Billings M.D. Primary Care Provider [phone] [phone] Encounter Details Date Type Department Care Team Description 01/21/2020 Orders Only Department of [facility] Chris Billings I., [facility], [facility] [address] [facility] [address] [place], [place] [address] [phone] (Wo rk) Social History Tobacco Use Types [...] do you attend islam or Never 2021 latter-day services? Do you belong to any clubs [...] have completed or the highest Martin, MEd, MOLD CONSTRUCTION SUPERVISOR, CAYDEN) degree you have received? Sex [...] documented as of this encounter Care Teams Recycling Operator Relationship Specialty Start Date End Date Chris Billings M.B.BMauroSMauro, MDahlia. PCP - General Family Medicine 01/10/20 05/21/[address] [place] [address] Teresa V[place] [phone] documented as of this encounter
--- OUTSIDE RECORDS SUMMARY | 2022-05-21 11:29 | XMS_ITS | Encounter Summary ---
:1945 Author Organization [facility] Address [address] [place] [address] Care Team Providers Name Role Phone Chris Billings M.D. Primary Care Provider [phone] Reason for Visit Appointment Request (Routine) - Closed Specialty Diagnoses / Referred By Contact Referred To Procedures Contact Gastroenterology and Diagnoses Pancreatitis Chronic (HCC) Emil Zurita Hepatology [place] [address] [place] [address] Referral ID Status Reason Start Date Expiration Date Visits Requ ested Visits Authorized [id number] Closed 02/02/2020 02/01/2021 1 1 Encounter Details Date Type Department Care Team Description 03/13/2020 Office Visit Division of Greyson Zurita Ch Gastroenterology in Rhoda Stein (HCC) (Primary Dx) [place], [place] [address] [place] [address] [address] [place] [phone] Social History Tobacco Use Types Packs/Day Years [...] do you attend gnosticism or Never 2021 adventism services? Do you [...] have completed or the highest Martin, MEd, BOIL OFF MACHINE OPERATOR CLOTH, CAYDEN) degree you have received? Sex Assigned at Date Recorded Male 05/21/2018 2:34 PM CDT documented as of this encounter Progress Notes Emil Zurita M.D. - 03/13/2020 10:40 AM CDT Gastroenterology Subsequent Visit Note #1 Chronic pancreatitis with intraductal stone and dilated pancreatic duct #2 Longstanding diabetes mellitus #3 Hypertension #4 Vitamin-D deficiency #5 Chronic diarrhea, recent acute exacerbation, stool pathogen panel positive for Yersenia I met with Mr. Costa in the [facility] for a follow-up visit. He feels well overall. Describeshis bowel movements as 3-4 every day mostly in the morning. Stool consistency is between Briscoe 5 in 6. There is no blood in his stool. He denies any abdominal pain or discomfort. His primary symptom currently is that he gets tired with any kind of physical activity very easily. He enjoys doing gardening and is trying to keep active between that and biking. His weight has remained relatively stable in the recent past. Over the past 2 years he has noticed a gradual decline in his weight which he attributes to eating less because food does not taste as good as it used to previously. He has not had any interval episodes of pancreatitis. He is using Creon 6000 international units 3 tablets with mealsand 2 with snacks. He takes these pills all at once at the beginning of the meal. He is working withhis local providers for optimizing glycemic control and feels that he has made significant improvements, does self monitoring of blood glucose and has not noted high values in the recent past. He is also on vitamin-D supplement and recent bone scan showed no evidence of osteopenia. He earlier this year had an exacerbation in his symptoms of chronic diarrhea with increased stool frequency that prompted stool pathogen panel testing that returned positive for Yersinia. He has a appointment with our ar eagues in infectious disease to determine if this needs to be treated with a short course of antibiotics. I recommended that he spread the Creon tablets over the course of the meal taking 1 at the beginning 1 in the middle and 1 towards the end of his meals. We will also recheck a vitamin-D level and hemoglobin A1c. I reviewed the results of his EUS with him. No pancreatic mass was identified. There were no features of main duct IPMN. He understands that he has intraductal pancreatic stones and may in the future developed acute pancreatitis secondary to that. However in the absence of symptoms endoscopy intervention is not warranted at this time as the risks of endoscopy do not outweigh the benefits in the absence of symptoms. We will continue to monitor is endocrine exocrine function. We discussed that individuals with chronic pancreatitis are at a higher risk of pancreatic cancer compared to the general population. I educated him on the signs and symptoms of pancreatic cancer. I will review test results when available and provide recommendations based on that. He verbalized understanding andwas in agreement. Multiple questions answered. documented in this encounter Plan of Treatment Not on filedocumented as of this encounter Results 25-Hydroxyvitamin D2 and D3 (03/13/2020 12:19 PM CDT) P athologist Signature 25-Hydroxy D2 <4.0 ng/mL 03/14/2020 [facility] 2:46 PM CDT 25-Hydroxy D3 30 ng/mL 03/14/2020 [facility] 2:46 PM CDT 25-Hydroxy D 30 ng/mL 03/14/2020 [facility] Total 2:46 PM CDT Comment: ----REFERENCE VALUE---- 25-HYDROXY D TOTAL (D2+D3) Optimum level s in the healthy population are 20-50, patients with bone disease may benefit from higher levels within this r stan. ----ADDITIONAL INFORMATION---- This test was developed and its performa nce characteristics determined by [facility] in a manner consistent with CLIA requirements. This test has not been cleared or approved by the [place] d and Drug Administration. Specimen Anatomical Collection Method Collection Time Receive d Time (Source) Location / / Volume Laterality Blood (Blood, 03/13/2020 12:19 03/14/2020 7:41 Venous) PM CDT AM CDT Emil Zurita M.D. LAB BLOOD ADD-ON Performing Organization Address City/[facility] Code Phon e Number [facility] [address] AYALA [address] [facility] [place] [address] Laboratory Medicine and Pathology [address] [...] M.D. LAB BLOOD ADD-ON Performing Organization Address City/[facility]/ZIP Code Phon e Number [facility] - [address] [place] [address] [facility] [place] [address] Laboratories-[facility] [address] documented in this encounter Visit Diagnoses Diagnosis Pancreatitis Chronic (HCC) - Primary documented in this encounter Additional Health Concerns Assessment Noted Time PHQ-9 Depression Total Score: 18 04/28/2018 11:27 AM C DT documented as of this encounter Care Teams Healthcare Administrative Assistant Relationship Specialty Start Date End Date Chris Billings M.B.B.S., M.D. PCP - General Family Medicine 01/10/20 05/21/[address] [place] [phone] documented as of this encounter
--- OUTSIDE RECORDS SUMMARY | 2022-05-21 11:29 | XMS_ITS | Encounter Summary ---
:1945 Author Organization [facility] Address [address] [place] [address] Care Team Providers Name Role Phone Chris Billings M.D. Primary Care Provider +[phone] Reason for Visit Reason Comments Atherosclerotic Heart Disease Platinum Coronary Artery O rder for [facility] With Ot Encounter Details Date Type Department Care Team Description 01/20/2020 Clinical Department of Pessmeryl, Atheroscleroti c Heart Communication Cardiovascular Koko S, Disease Yakelin ve Diseases in [place] Coronary Artery With [address] [place] (Order for [place] [address] [facility]) [place], [address] [place] [phone] [address] Social History Tobacco Use Types Packs/Day [...] do you attend christianity or Never 2021 confucianism services? Do you [...] have completed or the highest Martin, MEd, CRUSHER PLANT OPERATOR, CAYDEN) degree you have received? Sex Assigned at Date Recorded Male 05/21/2018 2:34 PM CDT documented as of this encounter Miscellaneous Notes Telephone Encounter - Koko Bañuelos M.D. - 01/20/2020 3:30 PM CDT This is a semi-urgent study that could be done in the next 1-2 weeks. Thank you, Koko Bañuelos Telephone Encounter - Lulu Dawn - 01/20/2020 3:21 PM CDT Thank you for your order. The current order did not indicate medical urgency. Can you please reply indicating whether this is considered elective or urgent? If elective, please specify if there is a date that you would like the CT Cardiac Angiogram with Coronary Arteries with IV Contrast scheduled for. Thank you, [facility] Online Services for Referring Providers Appointment Office documented in this encounter Plan of Treatment Not on filedocumented as of this encounter Visit Diagnoses Not on filedocumented in this encounter Additional Health Concerns Assessment Noted Time PHQ-9 Depression Total Score: 18 04/28/2018 11:27 AM C DT documented as of this encounter Care Teams Tax Professional Relationship Specialty Start Date End Date Chris Billings M.B.B.S., M.D. PCP - General Family Medicine 01/10/20 05/21/[address] [place] [address] [place] Marc [phone] documented as of this encounter
--- OUTSIDE RECORDS SUMMARY | 2022-05-21 11:29 | XMS_ITS | Encounter Summary ---
:1945 Author Organization [facility] Address [address] [place] [address] Care Team Providers Name Role Phone Chris Billings M.D. Primary Care Provider [phone] [phone] Reason for Visit Reason Comments [facility] Nurse Line Encounter Details Date Type Department Care Team Description 02/02/2020 Clinical Division of [facility] Zurita Communication Gastroenterology in [place], [place] [address] [place] [address] [place] [address] Social History Tobacco Use Types Packs/Day Years [...] do you attend yazidism or Never 2021 quaker services? Do you belong to any clubs [...] highest level of school Master's degree (e.g., Nteo Arias, [place], 03/23/2019 you have completed or the highest Martin, MEd, RESTORATION SILVERSMITH, CAYDEN) degree you have received? Sex Assigned at Date Recorded Male 05/21/2018 2:34 PM CDT documented as of this encounter Miscellaneous Notes Telephone Encounter - Mamta Galarza - 02/02/2020 10:32 AM CDT 1. In the past 14 days, have you been tested for COVID-19 with a positive or pending result? yes 2. In the past 14 days, do you, anyone in the household, or anyone you have had prolonged exposure have (any of the following)? a. Fever = 38.0 C (100.5 F) lasting 24 hours? no b. New symptoms (Specifically: cough, shortness of breath, respiratory distress, sore throat, diarrhea, chills, myalgia's (muscle aches), loss of smell, or change or loss of taste sensation)? no c. Had close contact with persons who are under quarantine or isolation for COVID? no d. Had close contact with a patient with known or possible COVID-19? no Route reply to: Debi Galarza Scheduling Contact Number: [phone] documented in this encounter Plan of Treatment Not on filedocumented as of this encounter Visit Diagnoses Not on filedocumented in this encounter Additional Health Concerns Assessment Noted Time PHQ-9 Depression Total Score: 18 04/28/2018 11:27 AM C DT documented as of this encounter Care Teams Torpedo Man Relationship Specialty Start Date End Date Chris Billings M.B.B.S., M.D. PCP - General Family Medicine 01/10/20 05/21/[address] [place] [address] [place] Vila [phone] documented as of this encounter
--- OUTSIDE RECORDS SUMMARY | 2022-05-21 11:29 | XMS_ITS | Encounter Summary ---
:1945 Author Organization [facility] Address [address] [place] [address] Care Team Providers Name Role Phone Chris Billings M.D. Primary Care Provider +1 [phone] Encounter Details Date Type Department Care Team Description 03/07/2020 Ancillary Procedure Department of Gastroenterology Social History Tobacco Use Types Packs/Day Years [...] do you attend gnosticist or Never 2021 taoist services? Do you [...] have completed or the highest Martin, MEd, ASSISTANT GROCERY STORE MANAGER, [place]YDEN) degree you have received? Sex Assigned at Date Recorded Male 05/21/2018 2:34 PM CDT documented as of this encounter Plan of Treatment Not on filedocumented as of this encounter Procedures Procedure Name Priority Date/Time Associated Comments Diagnosis GASTROENTEROLOGY IMAGE Routine 03/07/2020 11:05 R esults for this EXAM AM CDT procedure are i n the results section. documented in this encounter Results Upper EUS-Gastroenterology Image Exam (03/07/2020 11:05 AM CDT) Specimen (Source) Anatomical Collection Method Collection Time Re ceived Time Location / / Volume Laterality 03/07/2020 11:01 AM CDT Narrative [facility] - 03/07/2020 12:58 PM CDT This order has been created [...] documented as of this encounter Care Teams Asphalt Spreader Operator Relationship Specialty Start Date End Date Chris Billings M.B.B.S., M.D. PCP - General Family Medicine 01/10/20 05/21/[address] [place] [address] [place] [phone] documented as of this encounter
--- OUTSIDE RECORDS SUMMARY | 2022-05-21 11:29 | XMS_ITS | Encounter Summary ---
:1945 Author Organization [facility] Address [address] [place] [id number] Care Team Providers Name Role Phone Chris Billings M.D. Primary Care Provider +1 [phone] Encounter Details Date Type Department Care Team Description 03/07/2020 Anesthesia Event Division of Zhang White APRN, SWEETIE [address] [place] [phone] Gastroenterology in Natasha Barrios M.D. 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 Identified the patient 2. Ident ified the responsible provider 3. Revi ewed the pertinent medical history 4. Discu ssed the surgical course 5. Reviewed intra-o p anesthesia management and issues during an esthesia 6. Set expectations for post-procedure period 7. Allowed opportun ity for questions and acknowledgement of understanding. Name Total fentanyl injection 50 mcg/mL 100 mcg lidocaine 2% (mg) injection 40 mg propofol 10 mg/mL injection 120 mg propofol 10 mg/mL infusion 499.2 mg ondansetron PF 4 mg/2 mL injection 4 mg Lactated Ringers Free Drip 400 mL Agents No agents on file. Blood No blood administrations on file. Lines, Drains, and Airways Type Details Placement Removal Peripheral IV Placement Date: 01/27/20; 01/27/20 1417 by Choco , 03/07/20 1142 by Carmencita, Placement Time: 1417; Noam Nickerson, M.S.N., Catheter Size: 18 G; R.N. Orientation: Right; Location: Antecubital; Site Prep: Alcohol; Technique: Anatomical landmarks; Inserted by: AEL/tech; Insertion Attempts: 1; Removal Date: 03/07/20; Removal Time: 1142 Peripheral IV Placement Date: 03/07/20; 03/07/20 1005 by 03/07 1250 by Placement Time: 1005; Kayli Erwin Shu miloff, Jennifer A, Catheter Size: 22 G; R.N. R.N. Orientation: Right; Location: Forearm; Site Prep: Alcohol; Insertion Attempts: 2; Removal Date: 03/07/20; Removal Time: 1250; Removal Reason: Patient discharged documented in this encounter Social History Tobacco Use Types Packs/Day Years [...] do you attend confucianism or Never 2021 confucianist services? Do you [...] have completed or the highest Martin, MEd, DIRECTIONAL DRILL OPERATOR, CAYDEN) degree you have received? Sex Assigned at Date Recorded Male 05/21/2018 2:34 PM CDT documented as of this encounter OR Notes Anesthesia Postprocedure Evaluation - Zhang White APRN, CRNA - 03/07/2020 11:46 AM CDT Patient: Jonnathan Costa Procedure Summary Date: 03/07/20 Room / Location: Division of Gastroenterology in [place], [place] Anesthesia Start: 1101 Anesthesia Stop: 1146 Procedure: ENDOSCOPIC ULTRASOUND (EUS) Diagnosis: Diabetes Mellitus Type 2 With Diabetic Neuropathy (HCC) Pancreatitis Chronic (HCC) Exocrine Pancreatic Insufficiency (HCC) Scheduled Providers: Chad Soares M.D. Responsible Provider: Zhang White APRN, CRNA Anesthesia Type: general ASA Status: 3 Anesthesia Type: general Last vitals Vitals Value Taken Time BP 146/83 03/07/2020 11:45 AM Temp 36.9 ??C 03/07/2020 11:41 AM Pulse 69 03/07/2020 11:46 AM Resp 21 03/07/2020 11:46 AM SpO2 92 % 03/07/2020 11:46 AM Vitals shown include unvalidated device data. Please reference Vitals flowsheet for most recent vital signs. Anesthesia Post Evaluation Patient Disposition: dismissal Cardiovascular status: hemodynamics (HR & BP) acceptable Respiratory status: patent airway with spontaneous effort Temperature: normothermic Oxygen requirements: room air Level of consciousness: awake Pain score: pain adequately controlled and/or at baseline Post Op nausea/vomiting: none Hydration status: euvolemic Anesthesia Preprocedure Evaluation - Zhang White APRN, CRNA - 03/07/2020 9:48 AM CDT Preprocedure Anesthesia & H&P Assessment Procedure Summary Date/Time: 03/07/20 1015 Scheduled providers: Chad Soares M.D. Procedure: ENDOSCOPIC ULTRASOUND (EUS) Diagnosis: Diabetes Mellitus Type 2 With Diabetic Neuropathy (HCC) [E11.40] Pancreatitis Chronic (HCC) [K86.1] Exocrine Pancreatic Insufficiency (HCC) [K86.81] Location: Division of Gastroenterology in [place], [place] Pertinent components of the patient's history including current problem list, medical history, surgical history, family history, social history, medications and allergies were reviewed. Present illnessand pre-op diagnosis were confirmed. The planned surgery / procedure was verified with the patient /legal guardian. 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) Other (+) Cancer Bladder Family History (+) Diarrhea (+) Fatigue (+) Headache (+) Nausea And Vomiting (+) Pancreatitis Chronic Recurrent (HCC) (+) Reaction Drug Adverse Initial OBJECTIVE PHYSICAL EXAMINATION Airway (HEENT) Mallampati: III TM Distance: >3 FB Neck ROM: Full Mouth Opening: >3 cm Upper Lip Bite Test Class: II Cardiovascular Rhythm: Regular Rate: Normal Cardiovascular Assessment: cardiovascular normal Functional Capacity: >4 METS Pulmonary Pulmonary Assessment: Clear General / Constitutional Constitutional Assessment: Normal General State of Health:: healthy appearing and calm Neurological Neurologic Assessment:??alert and alert and oriented x 3 Dental Dental Assessment: dentition intact ASSESSMENT / PLAN ANESTHESIA PLAN ASA: 3 Anesthesia Plan: MAC Patient seen and allergies reviewed, anesthesia plan and risks discussed directly with patient /legal guardian or through an home lending officer. Risks/Benefits/Alternatives of Blood transfusion discussed with patient / legal guardian, including an opportunity to ask questions and/or decline some or all transfusion therapies. The patient / legalguardian consented to the use of all blood products, as deemed medically necessary Approval to Proceed: approved for anesthesia Recent cardiac workup reviewed, no recent chest pain. All questions answered. documented in this encounter Plan of Treatment Not on filedocumented as of this encounter Visit Diagnoses Not on filedocumented in this encounter Administered Medications Inactive Administered Medications - up to 3 most recent administrations Medication Order MAR Action Action Date Dose Rate Site fentaNYL injection (SUBLIMAZE) Given 03/07/2020 11:14 AM CDT 25 mcg intravenous, As needed, Starting on Fri03/07/20 at 1102, Anesthesia Intra-op Given 03/07/2020 11:11 AM CDT 25 mcg Given 03/07/2020 11:02 AM CDT 50 mcg lactated ringers New Bag 03/07/2020 11:02 AM CDT intravenous, Continuous Infusion: Per Instructions PRN, Starting on Fri03/07/20 at 1102, Anesthesia Intra-op lidocaine (PF) (cardiac) injection Given 03/07/2020 11:05 AM CDT 40 mg intravenous, As needed, Starting on Fri03/07/20 at 1105, Anesthesia Intra-op ondansetron (PF) injection (ZOFRAN) Given 03/07/2020 11:05 AM CDT 4 mg intravenous, As needed, Starting on Fri03/07/20 at 1105, Anesthesia Intra-op propofol 10 mg/mL infusion New Bag 03/07/2020 11:04 150 mcg/kg/min 93.6 mL/hr (DIPRIVAN) AM CDT intravenous, Continuous Infusion: Per Instructions PRN, Starting on Fri03/07/20 at 1104, Anesthesia Intra-op propofoL injection (DIPRIVAN) Given 03/07/2020 11:14 AM CDT 40 mg intravenous, As needed, Starting on Fri03/07/20 at 1105, Anesthesia Intra-op Given 03/07/2020 11:10 AM CDT 20 mg Given 03/07/2020 11:07 AM CDT 20 mg documented in this encounter Additional Health Concerns Assessment Noted Time PHQ-9 Depression Total Score: 18 04/28/2018 11:27 AM C DT documented as of this encounter Care Teams Linen Keeper Relationship Specialty Start Date End Date Chris Billings M.B.B.S., M.D. PCP - General Family Medicine 01/10/20 05/21/[address] [place] [address] [place] [phone] documented as of this encounter
--- OUTSIDE RECORDS SUMMARY | 2022-05-21 11:29 | XMS_ITS | Encounter Summary ---
:1945 Author Organization [facility] Address [address] [place] [address] Care Team Providers Name Role Phone Chris Billings M.D. Primary Care Provider [phone] Encounter Details Date Type Department Care Team Description 02/10/2020 Clinical Communication Department of Chris Terry [facility], Lorri Tavarez, Clinic, in [place] [address] [facility] [address] [facility] [place] [phone] Social History Tobacco Use Types Packs/Day Years [...] do you attend anglican or Never 2021 jewish services? Do you [...] have completed or the highest Martin, MEd, TIP PUNCHER, CAYDEN) degree you have received? Sex Assigned at Date Recorded Male 05/21/2018 2:34 PM CDT documented as of this encounter Miscellaneous Notes Telephone Encounter - Kira Sorenson - 02/10/2020 11:35 AM CDT Reason for Communication: Patient calling, has had continuous diarrhea for about a month. Has discussed with GI in [place] and has appts down there in February but is wanting to make you aware. Current Can Nursing/Provider leave a detailed message: [...] documented as of this encounter Care Teams Golf Course Patroller Relationship Specialty Start Date End Date Chris Billings M.B.BDenise, MDahlia. PCP - General Family Medicine 01/10/20 05/21/[address] [place], [place] [address], [place] [phone] documented as of this encounter
--- OUTSIDE RECORDS SUMMARY | 2022-05-21 11:29 | XMS_ITS | Encounter Summary ---
:1945 Author Organization [facility] Address [address] [place] [address] Care Team Providers Name Role Phone Chris Billings M.D. Primary Care Provider [phone] Reason for Visit Reason Onset Date Comments Outpatient COVID-19 Testing 01/24/2020 Encounter Details Date Type Department Care Team Description 01/24/2020 External Outreach Department of Collin Cervantes Infectmendez venegas [facility] Medicine, D.[place]. Respiratory ([place] [address]) [place], [place] [address] [address] [place], [place] [phone] (Work) [phone] Social History Tobacco Use Types Packs/Day Years [...] do you attend gnosticist or Never 2021 pentecostal services? Do you [...] completed or the highest Martin, MEd, CLINICAL SECRETARY, CAYDEN) degree you have received? Sex Assigned at Date Recorded Male 05/21/2018 2:34 PM CDT documented as of this encounter Progress Notes Collin Cervantes D.O. - 01/24/2020 12:31 PM CDT Encounter created for the drive-through COVID-19 testing. documented in this encounter Miscellaneous Notes Result Encounter Note - Becky Laguna - 01/25/2020 9:05 AM CDT Gave Negative COVID-19 result to patient via phone. documented in this encounter Plan of Treatment Not on filedocumented as of this encounter Procedures Procedure Name Priority Date/Time Associated Diagnosis Comme nts SARS CORONAVIRUS-2, Routine 01/24/2020 12:56 PM Infection Uppe r Results for this PCR CDT Respiratory procedure are i n the results section. documented in this encounter Results SARS Coronavirus-2, PCR (01/24/2020 12:56 PM CDT) [facility] Method Time Signature SARS Swab, 01/25/2020 DTL Coronavirus-2 Nasopharynx 12:57 AM Source CDT SARS Undetected Undetected 01/25/2020 DTL Coronavirus-2 12:57 AM , PCR CDT Comment: SARS-CoV-2 RNA absent. This result does not rule out COVID-19 in the patient, as the sensitivity of the test depends o n the timing of the specimen collection and quality of the specimen. Result should be correlated with patient's history and clinical presentat ion. ----ADDITIONAL INFORMATION---- This test was developed and its performa nce characteristics determined by [facility] in a manner co nsistent with CLIA requirements. Independent review by the U.S. Food and Drug Administration is pending. Visit the CDC website: https://www.cdc.gov/coronavirus/ ?? for the most recent guidelines on Mederos virus testing. Fact Sheet for Healthcare Providers: (https://www.wesync.tv/it-mmfil es/ Provider_Fact_Sheet_for_[facility]_COVI D-19.pdf) Fact Sheet for Patients: (https://www.wesync.tv/it-mmfil es/ Patient_Fact_Sheet_for_COVID-19.pdf) Specimen Anatomical Collection Method Collection Time Receive d Time (Source) Location / / Volume Laterality Varies 01/24/2020 12:56 01/24/2020 2:41 (Nasopharynx) PM CDT PM CDT Collin Cervantes D.O. LAB MICROBIOLOGY - GENERAL O RDERABLES Performing Organization Address City/State/ZIP Code Phon e Number [facility] - [address] [place], [place] [address] [facility] [place] [address] [facility] [address] documented in this encounter Visit Diagnoses Diagnosis Infection Upper Respiratory - Primary documented in this encounter Additional Health Concerns Infection Onset Date Last Indicated Resolved Time COVID19 Pending 01/24/2020 01/24/2020 01/25/2020 12:58 AM CDT Assessment Noted Time PHQ-9 Depression Total Score: 18 04/28/2018 11:27 AM C DT documented as of this encounter Care Teams Engraving Plate Maker Relationship Specialty Start Date End Date War[place], Chris I., M.B.B.S., M.D. PCP - General Family Medicine 01/10/20 05/21/[address] [place] [address] [place] [phone] documented as of this encounter
--- OUTSIDE RECORDS SUMMARY | 2022-05-21 11:29 | XMS_ITS | Encounter Summary ---
:1945 Author Organization [facility] Address [address] [place] [address] Care Team Providers Name Role Phone Chris Billings M.D. Primary Care Provider [phone] Encounter Details Date Type Department Care Team Description 02/16/2020 Clinical Communication Division of Parminder Gastroenterology in [place], [place] [address] [facility] [address] [place] [phone] Social History Tobacco Use Types Packs/Day Years [...] do you attend zoroastrian or Never 2021 buddhist services? Do you [...] have completed or the highest Martin, MEd, OPERATING ROOM REGISTERED NURSE, CAYDEN) degree you have received? Sex Assigned at Date Recorded Male 05/21/2018 2:34 PM CDT documented as of this encounter Plan of Treatment Not on filedocumented as of this encounter Visit Diagnoses Not on filedocumented in this encounter Additional Health Concerns Assessment Noted Time PHQ-9 Depression Total Score: 18 04/28/2018 11:27 AM C DT documented as of this encounter Care Teams Channeler Relationship Specialty Start Date End Date Chris Billings M.B.B.S., [place]oda. PCP - General Family Medicine 01/10/20 05/21/[address] [place] [phone] documented as of this encounter
--- OUTSIDE RECORDS SUMMARY | 2022-05-21 11:30 | XMS_ITS | Encounter Summary ---
:1945 Author Organization [facility] Address [address] [place] [address] Care Team Providers Name Role Phone Ewa Alejandro M.D. Primary Care Provider [phone] Reason for Referral Outpatient (Routine) - Closed Specialty Diagnoses / Procedures Referred By Contact Refer red To Contact Diagnoses Chronic Cough Shortness Of Breath Asthma Extrinsic Moderate (HCC) Ailyn Sims M.D. [facility] Procedures Cardiopulmonary (VO2) Exercise Test [address] [place], [place] [address] Referral ID Status Reason Start Date Expiration Date Visits Requ ested Visits Authorized [id number] Closed 12/15/2019 12/14/2020 1 1 Outpatient (Routine) - Closed Specialty Diagnoses / Procedures Referred By Contact Refer anna To Contact Diagnoses Chronic Cough Shortness Of Breath Asthma Extrinsic Moderate (HCC) Ailyn Sims M.D. Procedures Echo Stress [address] [place], [place] [address] Referral ID Status Reason Start Date Expiration Date Visits Requ ested Visits Authorized [id number] Closed 12/15/2019 12/14/2020 1 1 Reason for Visit Outpatient (Routine) - Closed Specialty Diagnoses / Procedures Referred By Contact Refer red To Contact Diagnoses Chronic Cough Shortness Of Breath Asthma Extrinsic Moderate (HCC) Ailyn Sims M.D. Procedures Echo Stress [address] [place] [phone] Referral ID Status Reason Start Date Expiration Date Visits Requ ested Visits Authorized [id number] Closed 12/15/2019 12/14/2020 1 1 Encounter Details Date Type Department Care Team Description 12/15/2019 Hospital Department of Ailyn Sims Cough Ch ronic; Encounter Cardiovascular [place] Shortness Of Breath; Diseases in [address] [place] [address] Asthma Extrinsic Moderate (HCC) [place], [place] [address] [facility] [address] [place], [place] [phone] (Work) [phone] Social History Tobacco Use Types Packs/Day Years Used Date Smoking Tobacco: Former Cigarettes Quit : 1979 Smokeless Tobacco: Never Alcohol Use Standard Drinks/Week [...] do you attend confucianism or Never 2021 faith services? Do you [...] have completed or the highest Martin, MEd, ORDER ENTRY REPRESENTATIVE, CAYDEN) degree you have received? Sex Assigned at Date Recorded Male 05/21/2018 2:34 PM CDT documented as of this encounter Medications at Time of Discharge Medication Sig Dispensed Refills Start Date End Date atorvastatin Take 80 mg by mouth 0 (for_LIPITOR) 80 mg daily. tablet blood sugar diagnostic Reports checking 4-5 0 strips times daily. clopidogreL (PLAVIX) 75 Take 1 tablet by 0 2015 mg tablet mouth daily. escitalopram (LEXAPRO) Take 1 tablet (10 mg 30 tablet 11 10 mg tablet total) by mouth daily. PEN NEEDLE, DIABETIC Yani Fine 30 0 MISC disposable needles. For use with Insulin Pens, 4 times daily SYRINGE-NEEDLE,INSULIN, 0 0.5 ML (INSULIN SYRINGE MISC) wvuske-cyszkfjv-zalsxhk Take 2 capsules by 240 capsule 3 01/13/2020 (CREON) mouth as directed. 2 6,000-19,000-30,000 capsules with meals Unit per DR capsule and 1 with snacks albuterol (for_ACCUNEB) Take 2.5 mg by 0 05/25/2020 2.5 mg /3 mL nebulizer nebulization every 6 solution (six) hours as needed for wheezing or shortness of breath. albuterol sulfate 90 Inhale 2 puffs every 0 08/1909/13/2020 mcg/actuation aerosol 6 (six) hours as powdr breath activated needed. budesonide-formoterol Inhale 2 puffs as 0 013 12/16/2019 (for_SYMBICORT) 160-4.5 needed. mcg/actuation inhaler chlorthalidone Take 1 tablet (25 mg 90 tablet 3 11/24/2018 03/15/2020 (HYGROTEN) 25 mg tablet total) by mouth daily. dilTIAZem CD (CARDIZEM Take 1 capsule (120 30 capsule 11 11/2801/12/2020 CD/CARTIA XT) 120 mg 24 mg total) by mouth hr capsule daily. flash glucose scanning Use as directed 1 each 0 09/18/20 18 05/01/2020 reader (FREESTYLE ILEANA 14 DAY READER) [facility] sensor Use as directed. 6 [...] U-100 KwikPen) 100 Diabetes unit/mL (70-30) injection lisinopril Take 1 tablet by 0 11/15/2008 01/21/20 20 (PRINIVIL,ZESTRIL) 10 mouth. mg tablet lisinopriL Take 1 tablet by 0 11/15/2008 11/06/19 22 (PRINIVIL,ZESTRIL) 10 mouth daily. mg tablet LORazepam (ATIVAN) 0.5 Take 1 tablet [...] 24 hr tablet mouth daily. omega-3 fatty Take 1 g by mouth 0 02/27 acids-fish oil daily. 300-1,000 mg capsule documented as of this encounter Plan of Treatment Not on filedocumented as of this encounter Procedures Procedure Name Priority Date/Time Associated Comments Diagnosis ECHO STRESS 2D WITH Routine 12/15/2019 3:33 Cough Chroni c Results for this COLOR, LIMITED DOPPLER PM CDT Shortness Of proce dure are in AND CONTRAST Breath the results Asthma Extrinsic section. Moderate (HCC) CARDIOPULMONARY (VO2) Routine 12/15/2019 3:33 Cough Healthcare Market Consultant hilary Results for this EXERCISE TEST PM CDT Shortness Of procedure are in Breath the results Asthma Extrinsic section. Moderate (HCC) documented in this encounter Results ECHO STRESS 2D WITH COLOR, LIMITED DOPPLER AND CONTRAST (12/15/2019 3:33 PM CDT) [facility] Method Time Signature Ejection Fraction 45 MC CV EIMS Mid-Ascending Aorta 37 MC CV EIMS Wall Motion Score 1.75 MC CV EIMS Index LV Mass Index 119 MC CV EIMS LV End-Diastolic 54 MC CV EIMS Diameter LV End-Systolic 41 MC CV EIMS Diameter MV E Velocity 1.4 MC CV EIMS MV A Velocity 0.7 MC CV EIMS MV E/A 2.00 MC CV EIMS MV e' Velocity 0.05 MC CV EIMS Medial MV e' Velocity 0.09 MC CV EIMS Lateral MV E/e' Medial 28.0 MC CV EIMS MV E/e' Lateral 15.6 MC CV EIMS LV Interventricular 13 MC CV EIMS Septal Wall Thickness LV Posterior Wall 12 MC CV EIMS Thickness LV Relative Wall 44 MC CV EIMS Thickness TR Vmax 2.97 MC CV EIMS RA Pressure 5 MC CV EIMS RV Systolic Pressure 40 MC CV EIM S MV mean gradient 3 MC CV EIMS WMSI At Rest 1.75 MC CV EIMS WMSI At Peak Stress 1.88 MC CV EIMS Anatomical Region Laterality Modality Echocardiography Specimen (Source) Anatomical Collection Method Collection Time Re ceived Time Location / / Volume Laterality 12/15/2019 2:17 PM CDT Impressions 12/15/2019 4:55 PM CDT STRESS TEST: ??The patient exercised for 7:45 min:sec on the Bry protocol. ??The test was terminated due to fatigue. ??The patient achieved a workload of 3.9 METS and 45 % FAC. ??A peak heart rate of 116 BPM was achieved (81 % age-predicted maximal HR). ??O2 sat at rest 100 %, and with exercise 96 %. ??Normal blood press ure response to exercise. ??Blood pressure at rest 128 mmHg/70 mmHg. ??Blood pressure with exer cise 162 mmHg/54 mmHg. ??The baseline ECG demonstrated sinus rhythm. ??With stress, there were no ST changes. ??The stress ECG was negative for ischemia. ??VPC's present at stress. ??P lease see Nursing Notes for additional information. Intravenous Lumason ultrasound enhanceme nt agent was administered to enhance endocardial border definition. ??LEFT VENTRICLE: ??Normal l eft ventricular chamber size. ??Mildly increased concentric left ventricular wall thickne ss. ??Estimated left ventricular ejection fraction 50 %. Regional wall motion abnormalities were present (see wall motion graphics). ??Findings consistent with increased left ventricul ar filling pressure. ??RIGHT VENTRICLE: ??Normal right ventricular chamber size. ??Normal right ventricular systolic function. ??Estimated right ventricular systolic pressure 40 mmHg (s ystolic blood pressure 128 mmHg). ??ATRIA: ??Enlarged left atrial size by visual estimate. ??E nlarged right atrial size by visual estimate. ??CARDIAC VALVES: ??Trileaflet aortic valve. ??Scl erotic aortic valve. ??Trivial aortic valve regurgitation. Mildly thickened mitral valve. ??Severe ly calcified mitral annulus. ??Mitral valve diastolic mean Doppler gradient 3 mmHg (heart rate 64 BPM). ??Mild mitral valve regurgitation. ??Mildly thickened pulmonary valve. ??Mild-modera te pulmonary valve regurgitation. ??Normal tricuspid valve. ??Trivial tricuspid valve regurgi tation. ??OTHER ECHO FINDINGS: ??Normal ascending aorta diameter. ??No intracardiac mass or thro mbus, but the left atrial appendage cannot be visualized adequately with transthoracic echo to ex clude thrombus in this location. ??No pericardial effusion. For the complete report, see the [employer] Documents. Narrative 12/15/2019 4:55 PM CDT For the complete report, see the [employer] Documents. Final Impressions 1. Exercise echocardiogram positive for anterior myocardial ischemia. 2. The patient's exercise capacity was l imited. 3. Ejection fraction response from 45 % at rest to 50 % at peak stress. 4. Left ventricular end-systolic volume decreased with stress. 5. Resting regional wall motion abnormal ities (see wall motion graphics). 6. Estimated right ventricular systolic pressure was 40 mmHg at rest and 55 mmHg with stress. 7. Findings consistent with elevated lef t ventricular filling pressure at rest and with exercise. 8. O2 uptake data detailed in the [facility] Medical Record (Cardiopulmonary (VO2) Exercise Test). 9. OTHER ECHO FINDINGS: 10. Severely calcified mitral annulus. 11. Mitral valve diastolic mean Doppler gradient 3 mmHg (heart rate 64 BPM). ??Not assessed at peak exercise. 12. Mildly increased concentric left mason tricular wall thickness. Procedure Note Rodney Zeng M.D. - 12/15/2019Form atting of this note might be different from the original. For the complete report, see the [employer] Documents. Final Impressions 1. Exercise echocardiogram positive for anterior myocardial ischemia. 2. The patient's exercise capacity was l imited. 3. Ejection fraction response from 45 % at rest to 50 % at peak stress. 4. Left ventricular end-systolic volume decreased with stress. 5. Resting regional wall motion abnormal ities (see wall motion graphics). 6. Estimated right ventricular systolic pressure was 40 mmHg at rest and 55 mmHg with stress. 7. Findings consistent with elevated lef t ventricular filling pressure at rest and with exercise. 8. O2 uptake data detailed in the [facility] Medical Record (Cardiopulmonary (VO2) Exercise Test). 9. OTHER ECHO FINDINGS: 10. Severely calcified mitral annulus. 11. Mitral valve diastolic mean Doppler gradient 3 mmHg (heart rate 64 BPM). Not assessed at peak exercise. 12. Mildly increased concentric left mason tricular wall thickness. Findings STRESS TEST: The patient exercised for 7 :45 min:sec on the Bry protocol. The test was terminated due to fatigue. The patient a chieved a workload of 3.9 METS and 45 % FAC. A peak heart rate of 116 BPM was achieved (81 % age-predicted maximal HR). O2 sat at rest 100 %, and with exercise 96 %. Normal blood pressur e response to exercise. Blood pressure at rest 128 mmHg/70 mmHg. Blood pressure with exerci se 162 mmHg/54 mmHg. The baseline ECG demonstrated sinus rhythm. With stress, there were no ST changes. The stress ECG was negative for ischemia. VPC's present at stress. Jolene feng see Nursing Notes for additional information. Intravenous Lumason ultrasound enhanceme nt agent was administered to enhance endocardial border definition. LEFT VENTRICLE: Normal left ventricular chamber size. Mildly increased concentric left ventricular wall thickne ss. Estimated left ventricular ejection fraction 50 %. Regional wall motion abnormalities were present (see wall motion graphics). Findings consistent with increased left ventricul ar filling pressure. RIGHT VENTRICLE: Normal right ventricular chamber size. Normal right v entricular systolic function. Estimated right ventricular systolic pressure 40 mmHg (s ystolic blood pressure 128 mmHg). ATRIA: Enlarged left atrial size by visual estimate. Enl arged right atrial size by visual estimate. CARDIAC VALVES: Trileaflet aortic valve. Sclerot ic aortic valve. Trivial aortic valve regurgitation. Mildly thickened mitral valve. Severely calcified mitral annulus. Mitral valve diastolic mean Doppler gradient 3 mmHg (heart rate 64 BPM). Mild mitral valve regurgitation. Mildly thickened pulmonary valve. Mild-moderate pulmonary valve regurgitation. Normal tricuspid valve. Trivial tricuspid valve regurgita tion. OTHER ECHO FINDINGS: Normal ascending aorta diameter. No intracardiac mass or thromb us, but the left atrial appendage cannot be visualized adequately with transthoracic echo to ex clude thrombus in this location. No pericardial effusion. For the complete report, see the [employer] Documents. Ailyn Sims M.D. CV ECHO PROCEDURES CARDIOPULMONARY (VO2) EXERCISE TEST (12/15/2019 3:33 PM CDT) Specimen (Source) Anatomical Collection Method Collection Time Re ceived Time Location / / Volume Laterality 12/15/2019 3:01 PM CDT Narrative CV MERGE - 12/15/2019 4:20 PM CDT This result has an attachment that is no t available. See PDF For Result Procedure Note Hitesh Feng M.D., Ph.D. - 12/15/2019 See PDF For Result Ailyn Sims M.D. CV STRESS PROCEDURES Performing Organization Address City/State/ZIP Code Phon e Number CV MERGE CV MERGE NA documented in this encounter Visit Diagnoses Diagnosis Chronic Cough Shortness Of Breath Asthma Extrinsic Moderate (HCC) documented in this encounter Administered Medications Inactive Administered Medications - up to 3 most recent administrations Medication Order MAR Action Action Date Dose Rate Site sulfur hexafluoride microspheres Given 12/15/2019 3:34 PM CDT 2 mL injection (LUMASON) intravenous, As needed, contrast, Starting on Fri12/15/19 at 1534, See protocol. Reconstitute each 25 mg vial with 5 mL NS. documented in this encounter Additional Health Concerns Assessment Noted Time PHQ-9 Depression Total Score: 18 04/28/2018 11:27 AM C DT documented as of this encounter Care Teams Energy Systems Laboratory Director Relationship Specialty Start Date End Date Ewa Alejandro M.D. PCP - General 03/13/17 01/09/[address] [phone] documented as of this encounter
--- OUTSIDE RECORDS SUMMARY | 2022-05-21 11:30 | XMS_ITS | Encounter Summary ---
:1945 Author Organization [facility] Address [address] [place] [address] Care Team Providers Name Role Phone Chris Billings M.D. Primary Care Provider [phone] Encounter Details Date Type Department Care Team Description 01/17/2020 Clinical Communication Department of Koko Bañuelos Cardiovascular Diseases Pato Champagne in [address] [place] [phone] Social History Tobacco Use Types Packs/Day [...] do you attend adventist or Never 2021 latter-day services? Do you [...] completed or the highest Martin, MEd, ASSISTANT FAMILY TEACHER, CAYDEN) degree you have received? Sex Assigned at Date Recorded Male 05/21/2018 2:34 PM CDT documented as of this encounter Miscellaneous Notes Telephone Encounter - Starr Hernandez R.N. - 01/17/2020 2:33 PM CDT INFORMATION DISCUSSED Spoke to patient via telephone call. Patient and commercial underwriter reviewed appointments he had with Dr. Sims and Dr. Billings. Auto Damage Insurance Appraiser reviewed the notes. Patient thought he was to have a Echocardiogram complete. The orders in the system are for Cardiology consult and Electrocardiogram and the notes from the doctors visits reflect Cardiology consult and Electrocardiogram.. Patient transferred to Scheduling to schedule Cardiology consult and Electrocardiogram. ?? PLAN - see above ?? Disposition/Recommendation: Patient repeated directions to commercial underwriter. Education: patient/caller able to teach back Caller agreeable to plan of care: yes The following references were used: provider Dr. Sims and Dr. Billings Telephone Encounter - Awa Parham - 01/17/2020 9:48 AM CDT Reason for Communication: Patient is returning call to [facility] Current Can Nursing/Provider leave a detailed message: Did [...] documented as of this encounter Care Teams Net Lead Developer Relationship Specialty Start Date End Date Chris Billings M.B.B.S., M.D. PCP - General Family Medicine 01/10/20 05/21/[address] [place] [address] [place] [phone] documented as of this encounter
--- OUTSIDE RECORDS SUMMARY | 2022-05-21 11:30 | XMS_ITS | Encounter Summary ---
:1945 Author Organization [facility] Address [address] [place] [address] Care Team Providers Name Role Phone Ewa Alejandro M.D. Primary Care Provider [phone] Reason for Visit Reason Comments Follow-up 6 month bladder cancer surve illance Outpatient (Routine) - Closed Specialty Diagnoses / Procedures Referred By Contact Refer red To Contact Diagnoses Personal History Of Malignant Neoplasm Of Bladder Prasanna Bernal M.D. [facility] Region Procedures Cystoscopy (specific provider) [address] [place] [address] Referral ID Status Reason Start Date Expiration Date Visits Requ ested Visits Authorized [id number] Closed 05/24/2019 05/23/2020 1 1 Encounter Details Date Type Department Care Team Description 11/25/2019 Office Visit Department of Urology Prasanna Bernal Per sonal History Of in Moise Dixon M.D. Malignant Neoplasm Of [address] [facility] [place] [phone] Social History Tobacco Use Types Packs/Day Years [...] do you attend baptist or Never 2021 spiritism services? Do you belong to any clubs or No 10/09/2021 organizations such as baptist groups, unions, [employer] or athletic groups, or school groups? How [...] have completed or the highest Martin, MEd, BROOCH MAKER NOVELTY, CAYDEN) degree you have received? Sex Assigned at Date Recorded Male 05/21/2018 2:34 PM CDT documented as of this encounter Last Filed Vital Signs Vital Sign Reading Time Taken Comments Blood Pressure 143/72 11/25/2019 8:04 AM LITHOGRAPHERS PRINTER Pulse 68 11/25/2019 8:04 AM LITHOGRAPHERS PRINTER Temperature 36.7 ??C (98.1 ??F) 11/25/2019 8:04 AM LITHOGRAPHERS PRINTER Respiratory Rate - - Oxygen Saturation - - Inhaled Oxygen Concentration - - Weight - - Height - - Body Mass Index - - documented in this encounter Procedure Prasanna Moreira M.D. - 11/25/2019 8:15 AM CST CHIEF COMPLAINT / REASON FOR VISIT ?? CYSTOSCOPY REPORT ? INDICATION Bladder cancer. ?? Original resection: May 22, 2016, tumor on right lateral wall Original pathology: Papillary transitional cell carcinoma, grade 1, stage TA Other: GreenLight PVP, August 28, 2016 Intravesical therapy: None: Last upper tract studies: August 19, 2018 Last cystoscopy: May 24, 2019 ?? Urine cytology collected on 2019 was negative.? INSTRUMENT Flexible cystoscope. ?? ANESTHESIA [...] photoselective vaporization of the prostate. ? PLAN: The patient would like to be maintained on every 6 month follow-up, as opposed to graduating to yearly intervals. Electronically signed by: Prasanna Bernal M.D. 11/25/19 8:33 AM LITHOGRAPHERS PRINTER OGRAPHERS PRINTER documented in this encounter Plan of Treatment Not on filedocumented as of this encounter Results Cytology Non-SEWER PIPE OFFBEARER (Scheduled) (06/06/2020 1:33 PM CDT) Component Value Ref Test Analysis Performed At [facility] gist Range Method Time Signature 06/07/2020 DTL 2:47 PM CDT Report Dafne Rodriguez M.D. [id number] 06/07/2020 DTL electronically I verify that I [...] Organization Address City/State/ZIP Code Phon e Number [facility] - [address] [place], [place] [address] [facility] [place] [address] [facility] [address] documented in this encounter Visit Diagnoses Diagnosis Personal History Of Malignant Neoplasm O f Bladder documented in this encounter Additional Health Concerns Assessment Noted Time PHQ-9 Depression Total Score: 18 04/28/2018 11:27 AM C DT documented as of this encounter Care Teams Geriatric Nurse Assistant Relationship Specialty Start Date End Date Ewa Alejandro M.D. PCP - General 03/13/17 01/09/[address] [place] [phone] documented as of this encounter
--- OUTSIDE RECORDS SUMMARY | 2022-05-21 11:30 | XMS_ITS | Encounter Summary ---
:1945 Author Organization [facility] Address [address] [place] [address] Care Team Providers Name Role Phone Chris Billings M.D. Primary Care Provider [phone] Encounter Details Date Type Department Care Team Description 01/13/2020 Hospital Encounter Department of Chris Billings more Mellitus Laboratory Medicine Lorri Shen, Type 2 (HCC) in [place] [address] [place] [phone] Social History Tobacco Use Types Packs/Day [...] do you attend moravian or Never 2021 denominational services? Do you [...] have completed or the highest Martin, MEd, VIDEO TECHNICIAN, CAYDEN) degree you have received? Sex [...] once Atherosclerotic Heart for 1 dose. 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 6 [...] by mouth tabletIndications: daily. 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 documented in this encounter Results (ABNORMAL) Hemoglobin A1c (01/13/2020 8:22 AM CDT) P athologist Signature Hemoglobin A1c, 9.8 (H) 4.2 - 5.6 01/13/2020 OWAT B % 11:08 AM CDT Comment: Hemoglobin A1c values greater than or eq ual to 6.5 percent are diagnostic for diabetes mellitus. ?? Diagnosis should be confirmed by repeat testing. ??In diabet ic patients, HbA1c goals should be discussed with healthcar e provider. Specimen Anatomical Collection Method Collection Time Receive d Time (Source) Location / / Volume Laterality Blood (Blood, 01/13/2020 8:22 AM 01/13/20 20 Venous) CDT 10:32 AM CDT Chris Blackmon M.D. LAB BLOOD ADD-ON Performing Organization Address City/State/ZIP Code Phon e Number [facility] [address] [place] [address] [facility] [place] [address] System in [place] [address] documented in this encounter Visit Diagnoses Diagnosis Diabetes Mellitus Type 2 (HCC) documented in this encounter Additional Health Concerns Assessment Noted Time PHQ-9 Depression Total Score: 18 04/28/2018 11:27 AM C DT documented as of this encounter Care Teams Primary Therapist Relationship Specialty Start Date End Date Chris Billings M.B.B.S., M.D. PCP - General Family Medicine 01/10/20 05/21/[address] [place] [address] [place] [phone] documented as of this encounter
--- OUTSIDE RECORDS SUMMARY | 2022-05-21 11:30 | XMS_ITS | Encounter Summary ---
:1945 Author Organization [facility] Address [address] [place] [address] Care Team Providers Name Role Phone Ewa Alejandro M.D. Primary Care Provider [phone] Reason for Visit Reason Comments Allergy Testing skin testing Encounter Details Date Type Department Care Team Description 12/15/2019 Clinical Support Division of Andres Sims M.D. [address] [place] [phone] Cough Chronic; Allergic Diseases Katerin Rasmussen, RMauroNMauro [address] [place] [phone] Shortness Of Breath; in [place], Deena Cai R.N. Asthma Extrinsic Moderate ([facility]) [address] [phone] Social History Tobacco Use Types Packs/Day Years [...] completed or the highest Martin, MEd, MERCHANT MILLER, CAYDEN) degree you have received? Sex Assigned at Date Recorded Male 05/21/2018 2:34 PM CDT documented as of this encounter Procedure Notes Josiah Ocasio M.D. - 12/15/2019 12:00 PM CDTAssociated Order(s): ALI BASIC SKIN TEST; ALI NORTHERN SKIN TEST Panel Skin Tests Clinical Support from 12/15/2019 in Division of Allergic Diseases in [place], [place] Controls Prick Control 0 Histamine (15 min W/F) 5x6f Glycerine (15 min W/F) 0 Basic Panel Cat Hair 0 Cockroach mix (Guyanese & Citizen Of The [place]) 0 Dog AP 0 D.F. Mite 5x5f D. P Mite 6x7f Horse 0 Alternaria Alternata 0 Aspergillus Fumigatus 0 Bipolaris Sorokiniana 0 Chaetomium Globosum 0 Curvularia Spicifera (Drechstera Spidfera) 0 Epicoccum 0 Fusarium 0 Geotrichum 0 Helminthosporium 0 Hormodendrum/Clad (Cladostorium Cladosporioides) 0 Mucor Racemosus 0 Penicillium Mix 0 Phoma Herbarum 0 Pullularia 0 Rhizopus Stolonifer 0 Stemphylium Solani 0 Northern Panel Shannon, White 0 Shashank, White 0 Birch 0 Presidio, Red 0 Hardee, Eastern 0 Elm, Guyanese 0 Maple 0 Joiner, Black 0 [place] 0 [place], White 0 Sanborn, Guyanese 0 Bermuda 0 Kentucky Blue 0 Orchard 0 Zhang 0 Kochia 0 Garcia's Quarters 0 Page Elder, Burweed 0 Mugwort, Common 0 Plantain, Palestinian 0 Rough Pigweed 0 Iranian thistle 0 Short Ragweed 0 Blue Sky, Sheep Red 0 Skin test positive. Clinical correlation recommended and allergy consult, if clinically indicated. documented in this encounter Plan of Treatment Not on filedocumented as of this encounter Procedures Procedure Name Priority Date/Time Associated Diagnosis Comme nts ALI NORTHERN SKIN Routine 12/15/2019 12:00 PM Cough Corporate Communications Intern hilary Results for this TEST CDT Shortness Of Trinh ath procedure are in Asthma Extrinsic the results Moderate (HCC) section. ALI BASIC SKIN TEST Routine 12/15/2019 12:00 PM Cough Ch ronic Results for this CDT Shortness Of Trinh ath procedure are in Asthma Extrinsic the results Moderate (HCC) section. documented in this encounter Results Basic Skin Test (12/15/2019 12:00 PM CDT) Narrative MMODAL - 12/15/2019 12:00 PM CDT Josiah Ocasio M.D. ? 12/17/2019 ??4:07 PM Panel Skin Tests ?Clinical Support from 12/15/2019 in Di vision of Allergic Diseases in [place], [place] Controls Prick Control ??0 Histamine (15 min W/F) ??5x6f Glycerine (15 min W/F) ??0 Basic Panel Cat Hair ??0 Cockroach mix (Guyanese & Citizen Of [place]) ??0 Dog AP ??0 D.F. Mite ??5x5f D. P Mite ??6x7f Horse ??0 Alternaria Alternata ??0 Aspergillus Fumigatus ??0 Bipolaris Sorokiniana ??0 Chaetomium Globosum ??0 Curvularia Spicifera (Drechstera Spidfer a) ??0 Epicoccum ??0 Fusarium ??0 Geotrichum ??0 Helminthosporium ??0 Hormodendrum/Clad (Cladostorium Cladospo rioides) ??0 Mucor Racemosus ??0 Penicillium Mix ??0 Phoma Herbarum ??0 Pullularia ??0 Rhizopus Stolonifer ??0 Stemphylium Solani ??0 Northern Panel [place], White ??0 Shashank, White ??0 Birch ??0 Presidio, Red ??0 Hardee, Eastern ??0 Elm, Guyanese ??0 Maple ??0 Joiner, Black ??0 [place] ??0 Derry, White ??0 Sanborn, Guyanese ??0 Bermuda ??0 Kentucky Blue ??0 Orchard ??0 Zhang ??0 Kochia ??0 Garcia's Quarters ??0 Page Elder, Burweed ??0 Mugwort, Common ??0 Plantain, Palestinian ??0 Rough Pigweed ??0 Iranian thistle ??0 Short Ragweed ??0 Blue Sky, Sheep Red ??0 Skin test positive. Clinical correlation recommended and allergy consult, if clinically indicated. Ailyn Sims M.D. PROCEDURE/MINOR SURGICAL ORD ERABLES Performing Organization Address City/State/ZIP Code Phon e Number MMODAL MMODAL NA Northern Skin Test (12/15/2019 12:00 PM CDT) Narrative MMODAL - 12/15/2019 12:00 PM CDT Josiah Ocasio M.D. ? 12/17/2019 ??4:07 PM Panel Skin Tests ?Clinical Support from 12/15/2019 in Di vision of Allergic Diseases in [place], [place] Controls Prick Control ??0 Histamine (15 min W/F) ??5x6f Glycerine (15 min W/F) ??0 Basic Panel Cat Hair ??0 Cockroach mix (Guyanese & Citizen Of [place]) ??0 Dog AP ??0 D.F. Mite ??5x5f D. P Mite ??6x7f Horse ??0 Alternaria Alternata ??0 Aspergillus Fumigatus ??0 Bipolaris Sorokiniana ??0 Chaetomium Globosum ??0 Curvularia Spicifera (Drechstera Spidfer a) ??0 Epicoccum ??0 Fusarium ??0 Geotrichum ??0 Helminthosporium ??0 Hormodendrum/Clad (Cladostorium Cladospo rioides) ??0 Mucor Racemosus ??0 Penicillium Mix ??0 Phoma Herbarum ??0 Pullularia ??0 Rhizopus Stolonifer ??0 Stemphylium Solani ??0 Northern Panel Shannon, White ??0 Shashank, White ??0 Birch ??0 Presidio, Red ??0 Hard[place], Eastern ??0 Elm, Guyanese ??0 Maple ??0 Joiner, Black ??0 [place] ??0 Derry, White ??0 Sanborn, Guyanese ??0 Bermuda ??0 Kentucky Blue ??0 Orchard ??0 Zhang ??0 Kochia ??0 Garcia's Quarters ??0 Page Elder, Burweed ??0 Mugwort, Common ??0 Plantain, Palestinian ??0 Rough Pigweed ??0 Iranian thistle ??0 Short Ragweed ??0 Blue Sky, Sheep Red ??0 Skin test positive. Clinical correlation recommended and allergy consult, if clinically indicated. Ailyn Sims M.D. PROCEDURE/MINOR SURGICAL ORD ERABLES Performing Organization Address City/State/ZIP Code Phon e Number MMODAL MMODAL NA documented in this encounter Visit Diagnoses Diagnosis Chronic Cough Shortness Of Breath Asthma Extrinsic Moderate (HCC) documented in this encounter Additional Health Concerns Assessment Noted Time PHQ-9 Depression Total Score: 18 04/28/2018 11:27 AM C BOBO documented as of this encounter Care Teams Dog Bather Relationship Specialty Start Date End Date Ewa Alejandro M.D. PCP - General 03/13/17 01/09/[address] [address] documented as of this encounter
--- OUTSIDE RECORDS SUMMARY | 2022-05-21 11:30 | XMS_ITS | Encounter Summary ---
:1945 Author Organization [facility] Address [address] [place] [address] Care Team Providers Name Role Phone Chris Billings M.D. Primary Care Provider [phone] Encounter Details Date Type Department Care Team Description 01/13/2020 Hospital Encounter Department of Chris Billings more Mellitus Laboratory Medicine Lorri Shen, Type 2 (HCC) in [place] [address] [facility] [place] [phone] Social History Tobacco Use Types Packs/Day [...] do you attend christianity or Never 2021 mandaeism services? Do you [...] have completed or the highest Martin, MEd, BURLAP BAG SEWER, CAYDEN) degree you have received? Sex Assigned [...] once Atherosclerotic Heart for 1 dose. 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 documented in this encounter Results (ABNORMAL) Albumin, Random, Urine (01/13/2020 8:21 AM CDT) [facility] gist Method Time Signature Microalbumin 2002.0 mg/L 01/13/2020 [place] 11:35 AM CDT Creatinine 89 mg/dL 01/13/2020 [place] 11:35 AM CDT Albumin/Creatinin 2249 (H) <17 mg/g 01/13/2020 [place] e Ratio 11:35 AM CDT Specimen Anatomical Collection Method Collection Time Receive d Time (Source) Location / / Volume Laterality Urine (Urine, 01/13/2020 8:21 AM 01/13/20 20 Clean Catch) CDT 10:32 AM CDT Chris Blackmon M.D. LAB URINE ORDERABLES Performing Organization Address City/State/ZIP Code Phon e Number [facility]- [address] [place] [address] [facility] [place] [address] System in [place] [address] documented in this encounter Visit Diagnoses Diagnosis Diabetes Mellitus Type 2 (HCC) documented in this encounter Additional Health Concerns Assessment Noted Time PHQ-9 Depression Total Score: 18 04/28/2018 11:27 AM C DT documented as of this encounter Care Teams Customs Brokerage Agent Relationship Specialty Start Date End Date Chris Billings M.B.B.S., M.D. PCP - General Family Medicine 01/10/20 05/21/[address] [place] [address] [place] [phone] documented as of this encounter
--- OUTSIDE RECORDS SUMMARY | 2022-05-21 11:30 | XMS_ITS | Encounter Summary ---
:1945 Author Organization [facility] Address [address] [place] [address] Care Team Providers Name Role Phone Ewa Alejandro M.D. Primary Care Provider [phone] Encounter Details Date Type Department Care Team Description 12/15/2019 Diagnostic Division of Pulmonary Sims, Ailyn Duque, Cough Chronic; Medicine in M.D. Shortness Of Breath; [place], [place] [address] [facility] Asthma Extrinsic Moderate (HCC) [address] [place] [phone] Social History Tobacco Use Types Packs/Day Years [...] have completed or the highest Martin, MEd, PLASTIC PRINTER, CAYDEN) degree you have received? Sex Assigned at Date Recorded Male 05/21/2018 2:34 PM CDT documented as of this encounter Plan of Treatment Not on filedocumented as of this encounter Procedures Procedure Name Priority Date/Time Associated Diagnosis Comme nts EXHALED NITRIC Routine 12/15/2019 9:13 AM Cough Chronic Results for this OXIDE CDT Shortness Of Trinh ath procedure are in Asthma Extrinsic the results Moderate (HCC) section. documented in this encounter Results PUL Exhaled Nitric Oxide (12/15/2019 9:13 AM CDT) [facility] gist Method Time Signature Exhaled NO 64 MMODAL Oral Parts per 39 MMODAL billion (ULN) ENOComment Patient takes MMODAL Albuterol, Symbicort Specimen (Source) Anatomical Location Collection Method / Collectio n Time Received Time / Laterality Volume Ailyn Sims M.D. PFT ORDERABLES Performing Organization Address City/State/ZIP Code Phon e Number MMODAL MMODAL NA documented in this encounter Visit Diagnoses Diagnosis Chronic Cough Shortness Of Breath Asthma Extrinsic Moderate (HCC) documented in this encounter Additional Health Concerns Assessment Noted Time PHQ-9 Depression Total Score: 18 04/28/2018 11:27 AM C DT documented as of this encounter Care Teams Docket Clerk Relationship Specialty Start Date End Date Ewa Alejandro M.D. PCP - General 03/13/17 01/09/[address] [facility] [address] documented as of this encounter
--- OUTSIDE RECORDS SUMMARY | 2022-05-21 11:30 | XMS_ITS | Encounter Summary ---
:1945 Author Organization [facility] Address [address] [place] [address] Care Team Providers Name Role Phone Chris Billings M.D. Primary Care Provider [phone] Encounter Details Date Type Department Care Team Description 01/07/2020 Clinical Communication [facility], in [place] [address] [place] [phone] Social History Tobacco Use Types Packs/Day Years [...] do you attend pentecostalism or Never 2021 yazidi services? Do you [...] have completed or the highest Martin, MEd, FIRER ELECTRIC LOCOMOTIVE, CAYDEN) degree you have received? Sex Assigned at Date Recorded Male 05/21/2018 2:34 PM CDT documented as of this encounter Miscellaneous Notes Telephone Encounter - Pura Abdullahi - 01/10/2020 1:20 PM CDT Patient is scheduled for a phone visit with Dr. Billings on FriJanuary 11, having problems setting up portal. Telephone Encounter - Justina Tirado, LMauroP.N. - 01/10/2020 11:59 AM CDT Please call and assist patient in getting scheduled for a video visit with Dr. Billings. Telephone Encounter - Justina Tirado L.PMauroN. - 01/10/2020 10:03 AM CDT SUBJECTIVE CHIEF COMPLAINT / REASON FOR CALL No chief complaint on file. Information Discussed Called and spoke with patient. Informed him of Dr. Roy's recommendations as listed below. Also informed patient that Dr. Roy is no longer seeing patients so he will need to establish carewith another provider. Patient would like to establish care with Dr. Billings. Informed patient I would reach out to Dr. Billings to see what type of visit is recommended and then we will call to schedule him. Please recommend what type of visit you would like. PLAN Disposition/Recommendation: notified provider and awaiting recommendations Information/Education: patient/caller able to teach back Caller agreeable to plan of care: yes The following references were used: provider Kirill Telephone Encounter - Stacia Davenport - 01/07/2020 4:53 PM CDT Patient called in, returning call from Jacquie. Unable to get a hold of nurse. Please call patient back. Telephone Encounter - Jacquie Hamilton L.P.NMauro - 01/07/2020 3:02 PM CDT Voice mail left for patient to return call for advisement from provider Telephone Encounter - Ewa Alejandro M.D. - 01/07/2020 1:23 PM CDT I think he misunderstood. The recommendation from Dr. Sims was for follow-up in a pulmonology in 3 months. He was to follow locally in 2 to 4 weeks to make sure he is tolerating the medication changes, for blood pressure check etcetera. Telephone Encounter - Jacquie Hamilton L.P.N. - 01/07/2020 9:05 AM CDT SUBJECTIVE CHIEF COMPLAINT / REASON FOR CALL No chief complaint on file. Information Discussed Per patient he was directed to have his primary provider place a referral to [facility] to repeat A Stress Echo and also a Cardiopulmonary (V02) Exercise test after being on new cardiology medications for 1 month following abnormal findings on 11/2019. Please call patient once referral is complete so he can contact [facility] to schedule testing PLAN Disposition/Recommendation: notified provider and awaiting recommendations Information/Education: patient/caller able to teach back Caller agreeable to plan of care: yes The following references were used: other per patient Telephone Encounter - Shanon Glover - 01/07/2020 8:53 AM CDT Reason for Communication: Patient is calling in and stated he was seen in [place] in [facility] and that he was told to set up a appointment with pcp. Patient is wanting a nurse to call him regarding when that can happen. Current Can Nursing/Provider leave a detailed message: [...] documented as of this encounter Care Teams Electric Plater Relationship Specialty Start Date End Date Chris Billings M.B.B.S., MDahlia. PCP - General Family Medicine 01/10/20 05/21/[address] [place] [address] [place] [phone] documented as of this encounter
--- OUTSIDE RECORDS SUMMARY | 2022-05-21 11:30 | XMS_ITS | Encounter Summary ---
:1945 Author Organization [facility] Address [address] [place] [address] Care Team Providers Name Role Phone Ewa Alejandro M.D. Primary Care Provider [phone] Reason for Visit Outpatient (Routine) - Closed Specialty Diagnoses / Referred By Contact Referred To Contact Procedures Allergy and Immunology Diagnoses Chronic Cough Shortness Of Breath Asthma Extrinsic Moderate (HCC) [facility] [address] [place] [address] Referral ID Status Reason Start Date Expiration Date Visits Requ ested Visits Authorized [id number] Closed 12/15/2019 12/14/2020 1 1 Encounter Details Date Type Department Care Team Description 12/16/2019 Comprehensive Visit Division of Karley Gillespie Asthma Mild Persistent (HCC) (Primary Dx); Allergic Diseases Pato Strong Abnormal Allergy Skin Test; in [address] Hypertension Essential Primary; [place], [place] Diabetes Mellitus Type 2 Wit h Diabetic Neuropathy (HCC) [address] [facility] [address] [place], [place] [phone] (Work) [phone] Social History Tobacco Use Types Packs/Day Years [...] do you attend jew or Never 2021 rastafarian services? Do you belong to any clubs or No 10/09/2021 organizations such as jew groups, unions, fraSawerly or athletic groups, or school groups? How [...] have completed or the highest Martin, MEd, DOUGH MACHINE OPERATOR, CAYDEN) degree you have received? Sex Assigned at Date Recorded Male 05/21/2018 2:34 PM CDT documented as of this encounter Last Filed Vital Signs Vital Sign Reading Time Taken Comments Blood Pressure - - Pulse - - Temperature 36.7 ??C (98.1 ??F) 12/16/2019 1:20 PM CDT Respiratory Rate - - Oxygen Saturation - - Inhaled Oxygen Concentration - - Weight - - Height - - Body Mass Index - - documented in this encounter Consult Karley Scott M.D. - 12/16/2019 1:30 PM CDT SUBJECTIVE REFERRING PROVIDER Ailyn Sims M.D. CHIEF COMPLAINT / REASON FOR VISIT Query allergies contributing to respiratory symptoms HISTORY OF PRESENT ILLNESS Mr. Costa is a very pleasant 74 y.o. male remote smoker with history of Agent [place] exposure in 1967, untreated sleep apnea, diabetes, asthma who presents for consultation at the request of Ailyn Sims M.D. for evaluation of environmental allergies. Mr. Costa reports having been diagnosed with asthma after his agent orange exposure in 1967. He haddone quite well until about 2 years ago when he began having episodic difficulty with chest tightness, shortness of breath and cough. URIs have been a common trigger for his asthma flares. More recently, he has become aware of strong smells triggering chest tightness and shortness of breath. He and his describe a recent, scary flare of these symptoms that they attributed to having frequent monique in the home. His symptoms subsided after the monique were removed from his home. Chemical smells, such as strong cleaning products have sometimes triggered these respiratory symptoms as well. In between these flares, Mr. Costa describes feeling quite well. He denies any burden of rhinitis symptoms unless he has a cold. Mr. Costa has Symbicort on hand for management of his asthma but has only beenusing it as needed with perhaps mild appreciated benefit. Ventolin seems to be much more helpful. He endorses flares of asthma symptoms about 4-5 times per year, but has had to seek care in the ER/urgent care setting less than once annually. Mr. Costa will be seeing Pulmonary in follow-up later today to review results of his breathing studies. It is noted that his exhaled nitric oxide level is elevated at 64 ppb. Skin [place] [facility] and [employer] panels yesterday was positive to dust mite, negative to trees, grasses, weeds, molds, cat, dog. Review of environmental history is significant for the absence of any secondhand smoke exposure. There are no pets in the home environment. Bedding is washed at least once weekly. There is rsdn-av-ikdmmlplchbnh in the bedroom. MEDICAL HISTORY Past Medical History: Diagnosis Date ??? Apnea Sleep Obstructive 06/18/2011 intolerant to CPAP therapy ??? Asthma (HCC) 10/16/2009 [facility] but probably some degree of [facility]. ??? Asthma NOS (HCC) ??? Chronic Obstructive Pulmonary Disease (HCC) ??? Depression Anxiety 11/18/2006 ??? Diabetes Mellitus Type 2 With Diabetic Neuropathy (HCC) 11/18/2006 ??? Diverticulosis Colon 02/16/2018 ??? Dysfunction Erectile 09/23/2007 ??? Hernia Umbilical 05/24/2009 ??? Hernia Ventral 06/29/2009 ??? Hypercholesterolemia 09/23/2007 ??? Hyperplasia Prostate Benign Localized Without Obstruction 11/18/2006 ??? Hypertension Essential Primary 09/23/2007 ??? Malignant Neoplasm Unspecified (HCC) ??? Pancreatitis Acute (HCC) ??? [...] head on 09/17/2017 ??? Transient Ischemic Attack CURRENT MEDICATIONS Current Outpatient Medications Medication Sig ??? albuterol (for_ACCUNEB) 2.5 mg /3 mL nebulizer solution Take 2.5 mg by nebulization every 6 (six) hours as needed for wheezing or shortness of breath. ??? albuterol sulfate 90 mcg/actuation aerosol powdr breath activated Inhale 2 puffs every 6 (six) hours as needed. ??? atorvastatin (for_LIPITOR) 80 mg tablet Take 80 mg by mouth daily. 1/2 tablet daily ??? blood sugar diagnostic (ACCU-CHEK MIHAI PLUS TEST STRP) strips ??? budesonide-formoterol (for_SYMBICORT) 160-4.5 mcg/actuation inhaler Inhale 2 puffs as needed. ??? chlorthalidone (HYGROTEN) 25 mg tablet Take 1 tablet (25 mg total) by mouth daily. ??? clopidogrel (PLAVIX) 75 mg tablet Take 1 tablet by mouth daily. ??? dilTIAZem CD (CARDIZEM CD/CARTIA XT) 120 mg 24 hr capsule Take 1 capsule (120 mg total) by mouthdaily. ??? escitalopram (LEXAPRO) 10 mg tablet Take 1 tablet (10 mg total) by mouth daily. ??? flash glucose scanning reader (FREESTYLE ILEANA 14 DAY READER) misc Use as directed ??? flash glucose sensor (FREESTYLE ILEANA 14 DAY SENSOR) kit Use as directed. ??? insulin aspart U-100 (NovoLOG FlexPen) 100 unit/mL injection Inject 0-35 Units under the skin asneeded (up to 6/d). ??? insulin glargine (LANTUS) 100 unit/mL injection Inject 44 Units under the skin at bedtime. ??? insulin NPH and regular human (HumuLIN 70/30 U-100 KwikPen) 100 unit/mL (70- 30) injection LW Addl Instr:Indicated for: Diabetes ??? anufpu-umpujbuo-cjefeof (CREON) 6,000-19,000-30,[address] capsule Take 2 capsules by mouthas directed. 2 capsules with meals and 1 with snacks (Patient taking differently: Take 2 capsules bymouth as directed. 3 capsules with meals and 2 with snacks ) ??? lisinopril (PRINIVIL,ZESTRIL) 10 mg tablet Take 1 tablet by mouth. ??? LORazepam (ATIVAN) 0.5 mg tablet Take 1 tablet (0.5 mg total) by mouth at bedtime as needed for anxiety for up to 15 days. (Patient not taking: Reported on 01/26/2019 ) ??? losartan (for_COZAAR) 100 mg tablet Take 1 tablet by mouth daily. ??? metFORMIN (GLUMETZA) 1,000 mg 24 hr tablet Take 1 tablet (1,000 mg total) by mouth 2 (two) timesa day with meals. ??? omega-3 fatty acids-fish oil 300-1,000 mg capsule Take 1 g by mouth daily. ??? PEN NEEDLE, DIABETIC MISC Yani Fine 30 disposable needles. For use with Insulin Pens, 4 times daily ??? SYRINGE-NEEDLE,INSULIN,0.5 ML (INSULIN SYRINGE MIS) ALLERGIES/CONTRAINDICATIONS Allergies Allergen Reactions ??? Doxycycline Anaphylaxis Bactrim ??? Penicillin Hives Cerner Listed no Reactions ??? Sulfa (Sulfonamide Antibiotics) Other (see comments) Cerner Listed no Reactions ??? Amlodipine Hypotension ??? Victoza 2-Eyal [Liraglutide] GI intolerance ??? Gadavist [Gadobutrol] GI intolerance Patient vomited after administration SOCIAL HISTORY Social History Tobacco Use ??? Smoking status: Former Smoker Packs/day: 2.00 Years: 0.00 Pack years: 0.00 Types: Cigarettes, Pipe Start date: 07/13/1955 Last attempt to quit: 1980 Years since quittin.2 ??? Smokeless tobacco: Never Used Substance Use Topics ??? Alcohol use: No Frequency: 2-4 times a month Drinks per session: 1 or 2 Binge frequency: Never FAMILY HISTORY Family History Problem Relation Age of Onset ??? Hypertension Mother ??? Heart attack Father age 76 ??? Depression Father ??? Asthma Sister ??? Asthma Brother ??? Depression Brother ??? Asthma Son REVIEW OF SYSTEMS Constitutional Symptoms: Denies fever, chills, unintentional weight loss, + fatigue. Eyes: Denies itchy, watery eyes. Ears: Denies ear pressure. Nose: Denies nasal congestion, rhinorrhea, sinus pressure, loss of smell. Throat: Denies sore throat, postnasal drainage. Cardiovascular: Denies chest pain. Respiratory: +episodic chest tightness and shortness of breath per HPI. GI: Denies heartburn. Heme/Immuno: Denies frequent infection. SKIN: Denies any rash, pruritus. OBJECTIVE Temp 36.7 ??C (Tympanic) PHYSICAL EXAMINATION General: Alert, in no apparent distress. Head: Normocephalic, atraumatic. Eyes: No lid edema, no conjunctival injection. Ears: Canals clear, tympanic membranes intact without fluid bilaterally. Nose: Septum midline, moist mucosa, no discharge, no turbinate hypertrophy, no polyps appreciated. Throat: Moist mucosa, no lesions, no postnasal drainage, no tonsillar enlargement, no exudates. Neck: Supple, no adenopathy. Cardiovascular: Regular rate, rhythm. Respiratory: Clear to auscultation bilaterally, no wheezes, rales, rhonchi. Psychiatric: Mood, affect, and mentation within normal limits. Hematology/Lymphatics/Immunologic: No cervical or supraclavicular lymphadenopathy. DIAGNOSTICS Skin testing to basic and [employer] panels on 12/15/19 was positive to dust mite with appropriate histamine control response. ASSESSMENT / PLAN #1 Asthma Mild Persistent (HCC) #2 Skin Test positive to Dust Mite Mr. Costa presents with evidence of suboptimal asthma control. He will be following up with pulmonary later today for further guidance regarding medical management. We spent some time reviewing typical triggers and approach to treatment of asthma with role of maintenance versus rescue inhalers. I indicated that Dr. Sims would likely be recommending initiation of inhaled corticosteroid therapy. While Mr. Costa demonstrates evidence of dust mite sensitivity on skin testing, it is not entirely clearif this has been of significant clinical consequence. Mr. Costa denies any concern for rhinitis symptoms and has more specifically identified nonallergic triggers of asthma symptoms including strong smells and viral infections. Nonetheless, we reviewed modest dust mite environmental control measures to reduce role of the sensitivity in contributing to his asthma. and Mrs. Costa expressed excelle nt understanding of our discussion today. #3 Hypertension Essential Primary #4 Diabetes Mellitus Type 2 With Diabetic Neuropathy (HCC) All of the above was discussed and all questions were answered. I am happy to follow up as needed. documented in this encounter Plan of Treatment Not on filedocumented as of this encounter Visit Diagnoses Diagnosis Asthma Mild Persistent (HCC) - Primary Abnormal Allergy Skin Test Hypertension Essential Primary 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) documented in this encounter Additional Health Concerns Assessment Noted Time PHQ-9 Depression Total Score: 18 04/28/2018 11:27 AM C DT documented as of this encounter Care Teams Armament Mechanic Relationship Specialty Start Date End Date Ewa Alejandro M.D. PCP - General 03/13/17 01/09/[address] [address] documented as of this encounter
--- OUTSIDE RECORDS SUMMARY | 2022-05-21 11:30 | XMS_ITS | Encounter Summary ---
:1945 Author Organization [facility] Address [address] [place] [address] Care Team Providers Name Role Phone Ewa Alejandro M.D. Primary Care Provider [phone] Reason for Referral Outpatient (Routine) - Closed Specialty Diagnoses / Procedures Referred By Contact Refer red To Contact Diagnoses Atherosclerotic Heart Disease [place] Coronary Artery With Other Forms Angina Pectoris (Angina Equivalent) (HCC) Ailyn Sims M.D. [facility] Procedures ECG 12 Lead [address] [place], [place] [address] Referral ID Status Reason Start Date Expiration Date Visits Requ ested Visits Authorized [id number] Closed 12/16/2019 12/15/2020 1 1 Outpatient (Routine) - Closed Specialty Diagnoses / Procedures Referred By Contact Refer red To Contact Pulmonary Medicine Ailyn Sims [place] M.D. [address] [place] [address] Referral ID Status Reason Start Date Expiration Date Visits Requ ested Visits Authorized [id number] Closed 12/15/2019 12/14/2020 1 1 Reason for Visit Outpatient (Routine) - Closed Specialty Diagnoses / Procedures Referred By Contact Refer red To Contact Pulmonary Medicine Ailyn Sims [place] M.D. [address] [place] [address] Referral ID Status Reason Start Date Expiration Date Visits Requ ested Visits Authorized [id number] Closed 12/15/2019 12/14/2020 1 1 Encounter Details Date Type Department Care Team Description 12/16/2019 Hospital Division of Ailyn Sims Atheroscrisa erotic Heart Disease [place] Coronary Artery With Other Forms Angina Pectoris (Angina Equivalent) (HCC) (Primary Dx); Encounter Pulmonary Pat[facility] Duque Diabetes Mellitus Type 2 (HCC); Medicine in [address] [place] [address] Hypertension Essential Primary; [place], [place] Fatigue; [place] [address] Asthma Extrinsic Moderate (HCC) [address] [place] [address] [place], [place] (Work) [phone] Social History Tobacco Use Types Packs/Day Years [...] do you attend anabaptist or Never 2021 denominational services? Do you [...] have completed or the highest Martin, MEd, JAR CAPPER, CAYDEN) degree you have received? Sex Assigned [...] SYRINGE-NEEDLE,INSULIN, 0 0.5 ML (INSULIN SYRINGE MISC) qpbuok-azlhudzv-bxkhoyq Take 2 capsules by 240 capsule 3 [...] (six) hours as powdr breath activated needed. chlorthalidone Take 1 tablet (25 mg 90 tablet 3 11/24/2018 03/15/2020 (HYGROTEN) 25 mg tablet total) by mouth daily. dilTIAZem (CARDIZEM) 60 Take 1 tablet (60 mg 60 tablet 3 03/15/2020 mg tabletIndications: total) by mouth once Atherosclerotic Heart for 1 dose. Disease [place] Coronary Artery With Other Forms Angina Pectoris (Angina Equivalent) ([facility]), Hypertension Essential Primary, Fatigue dilTIAZem CD (CARDIZEM Take 1 capsule (120 30 capsule 11 11/2801/12/2020 CD/CARTIA XT) 120 mg 24 mg total) by mouth hr capsule daily. flash glucose scanning Use as directed 1 each 0 09/18/20 18 05/01/2020 reader (FREESTYLE ILEANA 14 DAY READER) [facility] flash glucose sensor Use as directed. 6 [...] isosorbide mononitrate Take 1 tablet (30 mg 30 tablet 11 01/12/2020 (IMDUR) 30 mg 24 hr total) by mouth tabletIndications: daily. Atherosclerotic Heart Disease [place] Coronary Artery With Other Forms Angina Pectoris (Angina Equivalent) (HCC), Diabetes Mellitus Type 2 (HCC), Hypertension Essential Primary lisinopril Take 1 tablet [...] mg capsule documented as of this encounter Progress Notes Ailyn Sims M.D. - 12/16/2019 4:00 PM CDT Patient returns to review test results and finalize next steps. Assessment/plan: #1 Coronary artery disease with probable anginal equivalent and deconditioning Stress echocardiogram is abnormal for anterior wall ischemia. I spoke with Cardiology team who advised medical management with increasing diltiazem from 120 mg once daily to 180 mg and if tolerated, additional increased to 240 mg once daily. Also advised to add Imdur 30 mg once daily. Formal oqya-ex-bday consultation and consideration of need for cavity at catheterization will be deferred for 3 months due to COVID-19 constraints and patient's relatively stable hemodynamics. Patient will followup with local MD/COMMER[facility]OT in 2-4 weeks to finalize other non-pulmonary issues and cardiac co-morbidities. #2 Mild asthma with elevated oral exhaled nitric oxide level Recommend resuming Symbicort 1-2 puffs twice daily and p.r.n. albuterol. Continue efforts at regularexercise conditioning and general asthma self management principles. Encouraged to gargle after Symbicort use. Continue annual influenza vaccination. #3 Type 2 diabetes mellitus #4 History of mild TIAs-on Plavix #5 Hypertension-controlled #6 History of bladder cancer documented in this encounter Miscellaneous Notes Addendum Note - Ailyn Sims M.D. - 12/16/2019 4:00 PM CDT Encounter addended by: Ailyn Sims M.D. on: 12/16/2019 5:15 PM Actions taken: Visit diagnoses modified, Diagnosis association updated, Order list changed documented in this encounter Plan of Treatment Scheduled Referrals Name Type Priority Associated Order Schedule Diagnoses Pulmonary Medicine Outpatient Referral Routine On ce for 1 office visit Occurrences sta rting (clinic) 12/16/2019 unti l 12/16/2019 documented as of this encounter Results ECG 12 Lead (01/20/2020 8:49 AM CDT) P athologist Signature Ventricular Rate 66 BPM MUSE ECG/Min SD Interval 158 ms MUSE QRSD Interval 96 ms MUSE QT Interval 444 ms MUSE QTC Interval 465 ms MUSE P [place] 2 degrees MUSE R [place] -61 degrees MUSE T Wave [place] -25 degrees MUSE Specimen Anatomical Collection Method [...] encounter Visit Diagnoses Diagnosis Atherosclerotic Heart Disease [place] Cor onary Artery With Other Forms Angina Pectoris (Angina Equivalent) (HCC) - Primary Diabetes Mellitus Type 2 (HCC) Hypertension Essential Primary Fatigue Asthma Extrinsic Moderate (HCC) Atherosclerotic Heart Disease [place] Cor onary Artery With Other Forms Angina Pectoris (Angina Equivalent) (HCC) documented in this encounter Additional Health Concerns Assessment Noted Time PHQ-9 Depression Total Score: 18 04/28/2018 11:27 AM C DT documented as of this encounter Care Teams Geothermal Electrical Engineer Relationship Specialty Start Date End Date Ewa Alejandro M.D. PCP - General 03/13/17 01/09/20 [address], [place] [address] documented as of this encounter
--- OUTSIDE RECORDS SUMMARY | 2022-05-21 11:30 | XMS_ITS | Encounter Summary ---
:1945 Author Organization [facility] Address [address] [place] [address] Care Team Providers Name Role Phone Ewa Alejandro M.D. Primary Care Provider [phone] Encounter Details Date Type Department Care Team Description 11/25/2019 Ancillary Procedure Department of Urology Social History [...] do you attend sabianism or Never 2021 sikh services? Do you [...] have completed or the highest Martin, MEd, FLEET COORDINATOR, CAYDEN) degree you have received? Sex Assigned at Date Recorded Male 05/21/2018 2:34 PM CDT documented as of this encounter Plan of Treatment Not on filedocumented as of this encounter Procedures Procedure Name Priority Date/Time Associated Diagnosis Comme nts UROLOGY IMAGE EXAM Routine 11/25/2019 5:55 AM Res ults for this SORTER OPERATOR procedure are i n the results section. documented in this encounter Results CYSTOSCOPY-Urology Image Exam (11/25/2019 5:55 AM SORTER OPERATOR) Specimen (Source) Anatomical Collection Method Collection Time Re ceived Time Location / / Volume Laterality 11/25/2019 5:54 AM SORTER OPERATOR Narrative [facility] - 11/25/2019 8:23 AM SORTER OPERATOR This order has been created and auto-finalized [...] documented as of this encounter Care Teams Photographer Still Relationship Specialty Start Date End Date Ewa Alejandro M.D. PCP - General 03/13/17 01/09/[address] [place] [address] documented as of this encounter
--- OUTSIDE RECORDS SUMMARY | 2022-05-21 11:30 | XMS_ITS | Encounter Summary ---
:1945 Author Organization [facility] Address [address] [place] [address] Care Team Providers Name Role Phone Ewa Alejandro M.D. Primary Care Provider [phone] Reason for Visit Reason Comments Treatment Questions Encounter Details Date Type Department Care Team Description 12/12/2019 Clinical Communication Division of Natasha Corrales ment Questions [facility] B, R.N. [facility] [phone] [facility], in (Work) [place], [place] [address] [place] [address] Social History Tobacco Use Types Packs/Day Years [...] do you attend mormon or Never 2021 zoroastrian services? Do you [...] completed or the highest Martin, MEd, GAS REFRIGERATOR SERVICER, CAYDEN) degree you have received? Sex Assigned at Date Recorded Male 05/21/2018 2:34 PM CDT documented as of this encounter Miscellaneous Notes Telephone Encounter - Natasha Corrales R.N. - 12/12/2019 12:30 PM CDT Nurse Phone Triage Assessment CHIEF COMPLAINT / REASON FOR CALL Questions regarding novel coronavirus (COVID-19) HISTORY OF PRESENT ILLNESS Jonnathan Bandar Julissa calls to report intermittent shortness of breath. No coughing, no fever. Jonnathanhas a hx of lung damage due to agent orange exposure. He is concerned also because his granddaughter has been in [place] two weeks ago. His granddaughter has no symptoms. He has taken an tim an hour ago and his shortness of breath has resolved. Does patient have fever, cough or respiratory symptoms? No *If no to the above, consider alternative diagnosis. We are not currently testing or isolating asymptomatic patients. documented in this encounter Plan of Treatment Not on filedocumented as of this encounter Visit Diagnoses Not on filedocumented in this encounter Additional Health Concerns Assessment Noted Time PHQ-9 Depression Total Score: 18 04/28/2018 11:27 AM C DT documented as of this encounter Care Teams Strike Planning Applications Relationship Specialty Start Date End Date Ewa Alejandro M.D. PCP - General 03/13/17 01/09/[address] [place] [address] documented as of this encounter
--- OUTSIDE RECORDS SUMMARY | 2022-05-21 11:30 | XMS_ITS | Encounter Summary ---
:1945 Author Organization [facility] Address [address] [place] [address] Care Team Providers Name Role Phone Ewa Alejandro M.D. Primary Care Provider [phone] Reason for Referral Outpatient (Routine) - Closed Specialty Diagnoses / Procedures Referred By Contact Refer red To Contact Pulmonary Medicine Ailyn Sims [place] M.D. [address] [place] [address] Referral ID Status Reason Start Date Expiration Date Visits Requ ested Visits Authorized [id number] Closed 12/15/2019 12/14/2020 1 1 Outpatient (Routine) - Closed Specialty Diagnoses / Procedures Referred By Contact Refer red To Contact Diagnoses Chronic Cough Shortness Of Breath Asthma Extrinsic Moderate (HCC) Ailyn Sims M.D. Procedures Echo Stress [address] [place], [place] [phone] Referral ID Status Reason Start Date Expiration Date Visits Requ ested Visits Authorized [id number] Closed 12/15/2019 12/14/2020 1 1 Outpatient (Routine) - Closed Specialty Diagnoses / Referred By Contact Referred To Contact Procedures Allergy and Immunology Diagnoses Chronic Cough Shortness Of Breath Asthma Extrinsic Moderate (HCC) Ailyn Sims [place] M.D. [address] [place] [address] Referral ID Status Reason Start Date Expiration Date Visits Requ ested Visits Authorized [id number] Closed 12/15/2019 12/14/2020 1 1 Outpatient (Routine) - Closed Specialty Diagnoses / Procedures Referred By Contact Refer red To Contact Pulmonary Medicine Diagnoses Chronic Cough [place] Felicita Mcneil M.D. [address] [place] [phone] Referral ID Status Reason Start Date Expiration Date Visits Requ ested Visits Authorized [id number] Closed 10/27/2019 10/26/2020 1 1 Reason for Visit Outpatient (Routine) - Closed Specialty Diagnoses / Procedures Referred By Contact Refer red To Contact Pulmonary Medicine Diagnoses Chronic Cough [place] Felicita Mcneil M.D. [address] [place] [phone] Referral ID Status Reason Start Date Expiration Date Visits Requ ested Visits Authorized [id number] Closed 10/27/2019 10/26/2020 1 1 Encounter Details Date Type Department Care Team Description 12/15/2019 Hospital Encounter Division of Ailyn Sims rtness Of Breath (Primary Dx); Pulmonary Medicine Pato Duque Cough Chronic; in [place], [facility] Asthma Extrinsic Moderate (HCC) [place], [place] [address] [facility] [address] [place], [place] [phone] (Wo rk) [id number] [phone] Social History Tobacco Use Types Packs/Day Years [...] do you attend caodaism or Never 2021 latter day services? 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 Sex Assigned at Date Recorded Male 05/21/2018 2:34 PM CDT documented as of this encounter Last Filed Vital Signs Vital Sign Reading Time Taken Comments Blood Pressure 147/81 12/15/2019 8:06 AM CDT Pulse 77 12/15/2019 8:06 AM CDT Temperature 36.7 ??C (98.1 ??F) 12/15/2019 8:06 AM CDT Respiratory Rate - - Oxygen Saturation 94% 12/15/2019 8:06 AM CDT rm air Inhaled Oxygen Concentration - - Weight 104 kg (228 lb 2.8 oz) 12/15/2019 8:06 AM CDT Height 186.4 cm (6' 1.39) 12/15/2019 8:06 AM CDT Body Mass Index 29.79 12/15/2019 8:06 AM CDT documented in this encounter Medications at [...] daily SYRINGE-NEEDLE,INSULIN, 0 0.5 ML ([place] [facility] [place] [id number] Take 2 capsules by 240 capsule 3 [...] 1 each 0 09/18/20 18 05/01/2020 reader (Simmr ILEANA 14 DAY READER) [facility] [place] flash glucose sensor Use as directed. 6 [...] mg capsule documented as of this encounter Consult Notes Ailyn Sims M.D. - 12/15/2019 8:30 AM CDT SUBJECTIVE CHIEF COMPLAINT/REASON FOR VISIT Multifactorial cough, atypical chest tightness HISTORY OF PRESENT ILLNESS Pleasant mildly overweight 74-year-old [place] and former smoker (quit 1975) with chronic cough productive of clear sputum, deconditioning, pancreatitis, and inspiratory difficulties over the past 15 years. He raises concerns regarding possible environmental allergic triggers including dust mite, upper respiratory infections, bathroom cleaning solutions, and strong perfumes. He suggests is symptoms are worsening in the past 2 years, including after a cruise trip for 10 days when E required nebulized albuterol, prednisone for possible asthma exacerbation. No pulmonary function study data areavailable for review. Additional stress cardiac testing is pending. Prior environmental exposures include Agent Kinney (1967), possible mild positional sleep apnea, and deconditioning. Patient did retire from [employer] 1 year ago and does report increased to acute stress from news of COVID-19 in his region. He denies any hemoptysis, uncontrolled severe reflux, frequent sinusitis, h eadache, palpitations or abdominal pain. OBJECTIVE PHYSICAL EXAMINATION BP 147/81 (BP Location: Right arm, Patient Position: Sitting) Pulse 77 Temp 36.7 ??C (Tympanic) Ht 186.4 cm Wt 104 kg SpO2 94% Comment: rm air BMI 29.79 kg/m?? ENT-moderate bilateral nasal congestion without polyps, sinus tenderness or cervical adenopathy. Moderate cobblestoning posterior oropharynx consistent with postnasal drip. Mallampati 3. Thyroid-grossly normal Lungs-slightly shallow inspiratory effort. No crackles, wheeze or consolidation. Heart-normal S1, S2. JVP 8-9 cm. No murmur. 1+ bilateral pretibial edema. Abdomen-protuberant, soft, nontender. Bowel sounds present. No stigmata for advanced portal hypertension. Extremities-no cyanosis or clubbing. 1+ bilateral pretibial edema. Mild resting tremor. DIAGNOSTICS RELEVANT LAB RESULTS: Chest x-ray (November 16, 2019)-hyperinflation. No pleural effusion, adenopathy, bronchiectasis or obvious advanced interstitial lung disease. 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 Additional relaxation breathing techniques, excluding any cardiac ischemia or diastolic dysfunction, and 10-15 lb weight loss will be helpful. No need for prednisone or antibiotics at this time. He is up-to-date with pneumococcal vaccination and annual influenza vaccination. #2 History of sleep disorder breathing Continue follow-up with local care team regarding Sleep Center consultation, weight loss and psychosocial support. #3 Type 2 diabetes mellitus #4 Hypertension #5 Hyperlipidemia #6 History of bladder cancer documented in this encounter Plan of Treatment Scheduled Referrals Name Type Priority Associated Order Schedule Diagnoses Pulmonary Medicine Outpatient Referral Routine Cough Chronic O nce for 1 - Cough consult Occurrences (clinic) starting 2019 until 0 Allergy and Outpatient Referral Routine Cough Chroni c Expected: Immunology - Asthma Shortness Of Breath 12/15/2019, consult (clinic) Asthma Extrinsic Expires : 12/14/2022 Moderate (HCC) Pulmonary Medicine Outpatient Referral Routine Ex pected: office visit 12/15/2019 (clinic) (Approximate), Expires: 2022 documented as of this encounter Results ECHO STRESS 2D WITH COLOR, LIMITED DOPPLER AND CONTRAST (12/15/2019 3:33 PM CDT) [facility] gist Method Time Signature Ejection Fraction 45 MC [...] effusion. For the complete report, see the [facility] Documents. Narrative 12/15/2019 4:55 PM CDT For the complete report, see the [facility] Documents. Final Impressions 1. Exercise echocardiogram positive [...] 8. O2 uptake data detailed in the [facility] Record (Cardiopulmonary (VO2) Exercise Test). 9. [...] original. For the complete report, see the [facility] Documents. Final Impressions 1. Exercise echocardiogram positive [...] 8. O2 uptake data detailed in the [facility] Record (Cardiopulmonary (VO2) Exercise Test). 9. [...] Documents. Ailyn Sims M.D. CV ECHO PROCEDURES Basic Skin Test (12/15/2019 12:00 PM CDT) Narrative MMODAL - 12/15/2019 12:00 PM CDT Josiah Ocasio M.D. ? 12/17/2019 ??4:07 PM Panel Skin Tests ?Clinical Support from 12/15/2019 in [facility] in [place], [place] Controls Prick Control ??0 Histamine (15 min W/F) ??5x6f Glycerine (15 min W/F) ??0 Basic Panel Cat Hair ??0 Cockroach mix (Malawian & Persian) ??0 Dog AP ??0 D.F. Mite ??5x5f [...] White ??0 Shashank, White ??0 Birch ??0 [place], Red ??0 [place], Eastern ??0 Elm, Malawian ??0 Maple ??0 Flint, Black ??0 Vanderbilt ??0 [place], White ??0 Evers[place], Malawian ??0 Bermuda ??0 [place] Blue ??0 Orchard ??0 Zhang ??0 Kochia ??0 Garcia's Quarters ??0 Page Elder, Burweed ??0 Mugwort, Common ??0 Plantain, Citizen Of [place] ??0 Rough Pigweed ??0 Bermudian thistle ??0 Short Ragweed ??0 Abanda, Sheep Red ??0 Skin test positive. Clinical correlation recommended and allergy consult, if clinically indicated. Ailyn Sims M.D. PROCEDURE/MINOR SURGICAL ORD ERABLES Performing Organization Address City/State/ZIP Code Phon e Number MMODAL MMODAL NA [place] Skin Test (12/15/2019 12:00 PM CDT) Narrative MMODAL - 12/15/2019 12:00 PM CDT Josiah Ocasio M.D. ? 12/17/2019 ??4:07 PM Panel Skin Tests ?Clinical Support from 12/15/2019 in [facility] in [place], [place] Controls Prick Control ??0 Histamine (15 min W/F) ??5x6f Glycerine (15 min W/F) ??0 Basic Panel Cat Hair ??0 Cockroach mix (Malawian & Persian) ??0 Dog AP ??0 D.F. Mite ??5x5f D. P Mite ??6x7f Horse ??0 Alternaria Alternata ??0 Aspergillus Fumigatus ??0 Bipolaris Sorokiniana ??0 Chaetomium Globosum ??0 Curvularia Spicifera (Drechstera Spidfer a) ??0 Epicoccum ??0 Fusarium ??0 Geotrichum ??0 Helminthosporium ??0 Hormodendrum/Clad (Cladostorium Cladospo rioides) ??0 Mucor Racemosus ??0 Penicillium Mix ??0 Phoma Herbarum ??0 Pullularia ??0 Rhizopus Stolonifer ??0 Stemphylium Solani ??0 Northern Panel [place], White ??0 Shashank, White ??0 Birch ??0 [place], Red ??0 [place], Eastern ??0 Elm, Malawian ??0 Maple ??0 Flint, Black ??0 Vanderbilt ??0 Wash[place], White ??0 Everson, Malawian ??0 Bermuda ??0 Kentucky Blue ??0 Orchard ??0 Zhang ??0 Kochia ??0 Garcia's Quarters ??0 Page Elder, Burweed ??0 Mugwort, Common ??0 Plantain, Citizen Of [place] ??0 Rough Pigweed ??0 Bermudian thistle ??0 Short Ragweed ??0 Abanda, Sheep Red ??0 Skin test positive. Clinical correlation recommended and allergy consult, if clinically indicated. Ailyn Sims M.D. PROCEDURE/MINOR SURGICAL ORD ERABLES Performing Organization Address City/State/ZIP Code Phon e Number MMODAL MMODAL NA Pulmonary Function Tests (12/15/2019 9:21 AM CDT) athologist Signature VC MAX PRE 3.87 L 12/29/2019 [facility] 10:51 AM CDT SUITE FVC 3.87 L 12/29/2019 [facility] 10:51 AM CDT SUITE FEV1 2.62 L 12/29/2019 [facility] 10:51 AM CDT SUITE FEV1/FVC 67.58 % 12/29/2019 [facility] 10:51 AM CDT SUITE HFO46-27% 1.41 L/s 12/29/2019 [facility] 10:51 AM CDT SUITE PEF PRE 7.01 L/s 12/29/2019 [facility] 10:51 AM CDT SUITE FET PRE 12.56 sec 12/29/2019 [facility] 10:51 AM CDT SUITE DLCO 17.97 ml/(min*mm 12/29/2019 [facility] Hg) 10:51 AM CDT SUITE VA 6.35 L 12/29/2019 [facility] 10:51 AM CDT SUITE [id number] 96.00 % 12/29/2019 [facility] 10:51 AM CDT SUITE PulseRest 85.00 1/min 12/29/2019 [facility] 10:51 AM CDT SUITE S6VfmLbnc 93.00 % 12/29/2019 [facility] 10:51 AM CDT SUITE PulseExer 103.00 1/min 12/29/2019 [facility] 10:51 AM CDT SUITE EXER TIME 3.00 min 12/29/2019 [facility] 10:51 AM CDT SUITE STEP HEIGHT 9.00 Inch 12/29/2019 [facility] PRE 10:51 AM CDT SUITE % PRED VC MAX 86.08 % 12/29/2019 [facility] 10:51 AM CDT SUITE FVC% 86.08 % 12/29/2019 [facility] 10:51 AM CDT SUITE FEV1% 78.76 % 12/29/2019 [facility] 10:51 AM CDT SUITE % PRED 90.68 % 12/29/2019 [facility] FEV1/FVC 10:51 AM CDT SUITE % PRED FEF 60.23 % 12/29/2019 [facility] 25-75% 10:51 AM CDT SUITE % PRED PEF 78.97 % 12/29/2019 [facility] 10:51 AM CDT SUITE PRED VC MAX 4.50 L 12/29/2019 [facility] 10:51 AM CDT SUITE PRED FVC 4.50 L 12/29/2019 [facility] 10:51 AM CDT SUITE PRED FEV 1 3.32 L 12/29/2019 [facility] 10:51 AM CDT SUITE PRED FEV1/FVC 74.53 % 12/29/2019 [facility] 10:51 AM CDT SUITE PRED FEF 2.34 L/s 12/29/2019 [facility] 25-75% 10:51 AM CDT SUITE PRED PEF 8.87 L/s 12/29/2019 [facility] 10:51 AM CDT SUITE Specimen (Source) Anatomical Collection Method Collection Time Re ceived Time Location / / Volume Laterality 12/15/2019 9:21 AM CDT Narrative This result has an attachment that is no t available. Ailyn Sims M.D. PFT ORDERABLES Performing Organization Address City/State/ZIP Code Phon e Number [facility] [address] PUL Exhaled Nitric Oxide (12/15/2019 9:13 AM CDT) [facility] Method Time Signature Exhaled NO 64 MMODAL Oral Parts per 39 MMODAL billion (ULN) ENOComment Patient takes MMODAL Albuterol, Symbicort Specimen (Source) Anatomical Location Collection Method / Collectio n Time Received Time / Laterality Volume Ailyn Sims M.D. PFT ORDERABLES Performing Organization Address City/[facility] Code Phon e Number MMODAL MMODAL NA documented in this encounter Visit Diagnoses Diagnosis Shortness Of Breath - Primary Chronic Cough Asthma Extrinsic Moderate (HCC) Chronic Cough Shortness Of Breath Asthma Extrinsic Moderate (HCC) Chronic Cough Shortness Of Breath Asthma Extrinsic Moderate (HCC) documented in this encounter Additional Health Concerns Assessment Noted Time PHQ-9 Depression Total Score: 18 04/28/2018 11:27 AM C DT documented as of this encounter Care Teams Ultrasound Technologist Sonographer Relationship Specialty Start Date End Date Ewa Alejandro M.D. PCP - General 03/13/17 01/09/20 [address] [place] [phone] documented as of this encounter
--- OUTSIDE RECORDS SUMMARY | 2022-05-21 11:30 | XMS_ITS | Encounter Summary ---
:1945 Author Organization [facility] Address [address] [place] [address] Care Team Providers Name Role Phone hCris Billings M.D. 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 [facility] Cardiovascular Disease [place] [address] [place] [address] Referral ID Status Reason Start Date Expiration Date Visits Requ ested Visits Authorized [id number] Closed 01/12/2020 01/11/2021 1 1 Reason for Visit Reason Comments Follow-up Alexia - [facility] a referr al to Cardiology Encounter Details Date Type Department Care Team Description 01/12/2020 Virtual Visit Department of [facility] Chris Billings erosclerotic Heart Disease Jamul Coronary Artery With Other Forms Angina Pectoris (Angina Equivalent) (HCC); Medicine, Lorri Tavarez, Diabete s Mellitus Type 2 (HCC); Clinic, in [place] Hypertension Essential Primary; [place], [place] [address] Fat[place] [address] [place] [phone] Social History Tobacco Use Types Packs/Day Years [...] do you attend jewish or Never 2021 denominational services? 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 Sex Assigned at Date Recorded Male 05/21/2018 2:34 PM CDT documented as of this encounter Progress Notes Chris Billings M.B.B.S., M.D. - 01/12/2020 11:00 AM CDT SUBJECTIVE PHONE VISIT DATE OF ENCOUNTER: 01/12/20 CHIEF COMPLAINT / REASON FOR PHONE VISIT Follow-up for cardiac ischemia HISTORY OF PRESENT ILLNESS Jonnathan Costa is a 74 y.o. male who was contacted today via telephone for follow-up of cardiac issues. Patient identity was verified by name and date of . Jonnathan is a 74-year-old male with a history of type 2 diabetes, hypertension and asthma. He had a stress echocardiogram for anginal equivalent a month ago which showed anterior wall ischemia. On the recommendation of Cardiology, he is being managed medically with Cardizem 240 mg daily and Imdur 30 mg daily. He is already on Lipitor 80 mg daily. Today, he denies any shortness of breath. He reports occasional minor chest pain with minimal activity. For the last 2 years however he has had worsening easy fatigability and fatigue. His last A1c in September 2019 was 10.2. He is on insulin which she claims consistency with. Blood sugar readings at home have averaged 225. He also reports having minor hypoglycemic episodes 1 to 2 times a week which he manages appropriately. He denies palpitations, orthopnea, PND or lower extremity edema. He denies focal weakness, dizziness, headaches. He has had no urinary symptoms. The following portions of the patient's history were reviewed and updated as appropriate: allergies,current medications, family history, medical history, social history, surgical history and problem list. MEDICATIONS Reviewed and updated. Outpatient Medications Prior to Visit Medication Sig Dispense Refill ??? atorvastatin (for_LIPITOR) 80 mg tablet Take 80 mg by mouth daily. 1/2 tablet daily ??? blood sugar diagnostic (ACCU-CHEK MIHAI PLUS TEST STRP) strips ??? budesonide-formoteroL (SYMBICORT) 160-4.5 mcg/actuation inhaler Inhale 2 puffs 2 (two) times a day. Start at 1 puff twice daily x 4 weeks, then 2 puffs twice daily if tolerated. 1 Inhaler 11 ??? cholecalciferol, vitamin D3, (cholecalciferol) 1,000 Unit tablet Take 1,000 Units by mouth daily. ??? clopidogrel (PLAVIX) 75 mg tablet Take 1 tablet by mouth daily. ??? escitalopram (LEXAPRO) 10 mg tablet Take 1 tablet (10 mg total) by mouth daily. 30 tablet 11 ??? flash glucose scanning reader (FREESTYLE ILEANA 14 DAY READER) [facility] Use as directed 1 each 0 ??? flash glucose sensor (FREESTYLE ILEANA 14 DAY SENSOR) kit Use as directed. 6 kit 3 ??? insulin aspart U-100 (NovoLOG FlexPen) 100 unit/mL injection Inject 0-35 Units under the skin asneeded (up to 6/d). ??? insulin glargine (LANTUS) 100 unit/mL injection Inject 44 Units under the skin at bedtime. ??? enpxqh-ufiuldpz-vlaklxi (CREON) 6,000-19,000-30,[address] capsule Take 2 capsules by mouthas directed. 2 capsules with meals and 1 with snacks (Patient taking differently: Take 2 capsules bymouth as directed. 3 capsules with meals and 2 with snacks ) 240 capsule 3 ??? losartan (for_COZAAR) 100 mg tablet Take 1 tablet by mouth daily. ??? PEN NEEDLE, [facility] Yani Fine 30 disposable needles. For use with Insulin Pens, 4 times daily ??? SYRINGE-NEEDLE,INSULIN,0.5 ML (INSULIN [facility]) ??? isosorbide mononitrate (IMDUR) 30 mg 24 hr tablet Take 1 tablet (30 mg total) by mouth daily. 30tablet 11 ??? albuterol (for_ACCUNEB) 2.5 mg /3 mL nebulizer solution Take 2.5 mg by nebulization every 6 (six) hours as needed for wheezing or shortness of breath. ??? albuterol sulfate 90 mcg/actuation aerosol powdr breath activated Inhale 2 puffs every 6 (six) hours as needed. ??? chlorthalidone (HYGROTEN) 25 mg tablet Take 1 tablet (25 mg total) by mouth daily. 90 tablet 3 ??? dilTIAZem (CARDIZEM) 60 mg tablet Take 1 tablet (60 mg total) by mouth once for 1 dose. 60 tablet 3 ??? insulin NPH and regular human (HumuLIN 70/30 U-100 KwikPen) 100 unit/mL (70- 30) injection LW Addl Instr:Indicated for: Diabetes ??? lisinopril (PRINIVIL,ZESTRIL) 10 mg tablet Take 1 tablet by mouth. ??? LORazepam (ATIVAN) 0.5 mg tablet Take 1 tablet (0.5 mg total) by mouth at bedtime as needed for anxiety for up to 15 days. (Patient not taking: Reported on 01/26/2019 ) 15 tablet 0 ??? metFORMIN (GLUMETZA) 1,000 mg 24 hr tablet Take 1 tablet (1,000 mg total) by mouth 2 (two) timesa day with meals. 180 tablet 3 ??? omega-3 fatty acids-fish oil 300-1,000 mg capsule Take 1 g by mouth daily. ??? dilTIAZem CD (CARDIZEM CD/CARTIA XT) 120 mg 24 hr capsule Take 1 capsule (120 mg total) by mouthdaily. 30 capsule 11 No facility-administered medications prior to visit. OBJECTIVE PHYSICAL EXAMINATION LIMITED GIVEN THAT THIS IS A TELEPHONE ENCOUNTER Pertinent findings able to be determined with the technological tools available are listed below Neurological Mental Status: He is alert and oriented to person, place, and time. Psychiatric Mood and Affect: Mood normal. Thought Content: Thought content normal. DIAGNOSTICS Reviewed in the EHR. 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 It is concerning his symptoms of easyfatigability and occasional minor chest pain. I have referred him to cardiology in 1 month. He will follow-up with me in 2 weeks to make sure things are not getting worse. In the meantime, he will continue on his current regimen. - dilTIAZem CD (CARDIZEM CD/CARTIA XT) 240 mg 24 hr capsule; Take 1 capsule (240 mg total) by mouth daily., Starting Fri01/12/2020, Until Hali 01/11/2021, Normal - Cardiovascular Disease - General cardiology consult (clinic); Future; Expected date: 02/11/2020 #2 Diabetes Mellitus Type 2 (HCC) His last A1c in September was 10.2. He reports he has been aggressive with his diabetic diet and his insulin. It is concerning that his average blood sugar is still above 200. Is also concerning that he has episodes of hypoglycemia. It is possible that these contribute to his feelings of easy fatigability. We discussed managing his diet better. He should not skip meals but avoid carbohydrates. - Hemoglobin A1c; Future; Expected date: 01/12/2020 - Albumin, Random, Urine; Future; Expected date: 01/12/2020 Other orders - isosorbide mononitrate (IMDUR) 30 mg 24 hr tablet; Take 1 tablet (30 mg total) by mouth daily., Starting 01/12/2020, Until Hali 01/11/2021, Normal Lorri Fenton M.D. I personally spent a total of 35 minutes in hin-fjpb-je-face time performing a review of the record and/or discussion with the patient/caregiver as described above. This Telephone Visit was performed during the - emergency, when many states had issued [id number] orders. documented in this encounter Plan of Treatment Scheduled Referrals Name Type Priority Associated Diagnoses Order [facility] Cardiovascular Disease Outpatient Routine Atherosclerotic He art Expected: - General cardiology Referral Disease Jamul 02/10 consult (clinic) Coronary Artery With (Ap proximate), Other Forms Angina Expires: Pectoris (Angina 01/11/2023 Equivalent) ([facility]) documented as of this encounter Results (ABNORMAL) Hemoglobin A1c (01/13/2020 [...] Phon e Number [facility] [address] [place] [address] [facility] [place] [address] System in [place] [address] [facility] (ABNORMAL) Albumin, Random, Urine (01/13/2020 8:21 AM CDT) [facility] gist Method Time Signature Microalbumin 2002.0 mg/L [...] Phon e Number [facility] [address] [place] [address] [facility] [place] [address] System in [place] [address] [facility] documented in this encounter Visit Diagnoses Diagnosis Atherosclerotic Heart Disease Jamul Cor onary Artery With Other Forms Angina Pectoris (Angina Equivalent) (HCC) Diabetes Mellitus Type 2 (HCC) Hypertension Essential Primary Fatigue documented in this encounter Additional Health Concerns Assessment Noted Time PHQ-9 Depression Total Score: 18 04/28/2018 11:27 AM C DT documented as of this encounter Care Teams Biomedical Electronics Technician Relationship Specialty Start Date End Date Chris Billings M.B.B.S., MDahlia. PCP - General Family Medicine 01/10/20 05/21/[address] [place] [address] Teresa [place] sears [phone] documented as of this encounter
--- OUTSIDE RECORDS SUMMARY | 2022-05-21 11:30 | XMS_ITS | Encounter Summary ---
:1945 Author Organization [facility] Address [address] [place] [address] Care Team Providers Name Role Phone Chris Billings M.D. Primary Care Provider [phone] Reason for Referral Outpatient (Routine) - Closed Specialty Diagnoses / Procedures Referred By Contact Refer red To Contact Cardiovascular Disease Koko Bañuelos [facility] [address] [place] Felicita M.DMauro [address] [place] [address] Referral ID Status Reason Start Date Expiration Date Visits Requ ested Visits Authorized [id number] Closed 01/20/2020 01/19/2021 1 1 Outpatient (Routine) - Closed Specialty Diagnoses / Procedures Referred By Contact Refer red To Contact Diagnoses Atherosclerotic Heart Disease [place] Coronary Artery With Other Forms Angina Pectoris (Angina Equivalent) (HCC) Koko Bañuelos M.D. [facility] Procedures Echo Transthoracic (TTE) [address] [place] [address] Referral ID Status Reason Start Date Expiration Date Visits Requ ested Visits Authorized [id number] Closed 01/20/2020 01/19/2021 1 1 MRI/CAT/PET Scan (Routine) - Closed Specialty Diagnoses / Procedures Referred By Contact Refer red To Contact Radiology Diagnoses Atherosclerotic Heart Disease [place] Coronary Artery With Other Forms Angina Pectoris (Angina Equivalent) ([facility]) Koko Bañuelos M.D. [facility] Procedures CT Cardiac Angiogram with Coronary Arteries with IV Contrast [address] [place] [address] Referral ID Status Reason Start Date Expiration Date Visits Requ ested Visits Authorized [id number] Closed 01/20/2020 01/19/2021 1 1 Reason for Visit Reason Comments Follow-up stress echo Outpatient (Routine) - Closed Specialty Diagnoses / Referred By Contact Referred To Contact Procedures Cardiovascular Diseases / Diagnoses Atherosclerotic Heart Disease [place] Coronary Artery With Other Forms Angina Pectoris (Angina Equivalent) ([facility]) Chris Billings I. [facility] Cardiovascular Disease Pato Blackmon [address] [place] [address] Referral ID Status Reason Start Date Expiration Date Visits Requ ested Visits Authorized [id number] Closed 01/12/2020 01/11/2021 1 1 Encounter Details Date Type Department Care Team Description 01/20/2020 Comprehensive Visit Department of Christopher Bañuelosrotic Heart Cardiovascular Koko Champagne Disease Nativ e Diseases in [place] Coronary Artery With [place] [address] Other Forms Angina [address] Pectoris (Angina [place], [facility], Equivalent) (HC C) [id number] [place] [phone] Social History Tobacco Use Types Packs/Day [...] do you attend sabianist or Never 2021 moravian services? Do you [...] have completed or the highest Martin, MEd, [employer], [employer]YDEN) degree you have received? Sex Assigned at Date Recorded Male 05/21/2018 2:34 PM CDT documented as of this encounter Last Filed Vital Signs Vital Sign Reading Time Taken Comments Blood Pressure 136/68 01/20/2020 9:27 AM CDT Pulse 70 01/20/2020 9:22 AM CDT Temperature 36.6 ??C (97.8 ??F) 01/20/2020 9:22 AM CDT Respiratory Rate 18 01/20/2020 9:22 AM CDT Oxygen Saturation 96% 01/20/2020 9:22 AM CDT Inhaled Oxygen Concentration - - Weight 103 kg (226 lb 13.7 oz) 01/20/2020 9:22 AM CDT Height - - Body Mass Index 29.62 12/15/2019 8:06 AM CDT documented in this encounter Patient Instructions Patient InstructionsKoko Bañuelos M.D. - 01/20/2020 10:00 AM CDT Call me with a blood pressure log in 1 week. documented in this encounter Consult Notes Koko Bañuelos M.D. - 01/20/2020 10:00 AM CDT ASSESSMENT / PLAN 1. Coronary artery disease, presumed. - chest pain, atypical for ischemia, and abnormal stress echocardiogram in a patient with multiple risk factors for coronary artery disease. 2. Heart failure with mid range ejection fraction; possibly ischemic in etiology. 3. Hypertension. 4. Dyslipidemia. 5. Diabetes mellitus type 2; uncontrolled. - Latest A1c 9.8 12/2019; 10.2 09/2019. Elevated albumin/creatinine ratio. Episodes of hypoglycemia. 6. Obstructive sleep apnea severe. Not undergoing treatment. 7. Prior history of tobacco use, quit 1979. 8. Asthma, mild. Seen by naprapath 11/2019. 9. History of pancreatitis. - CT 09/2019 N/S change from the most recent prior study; chronic changes of pancreatitis. 10. Anemia, normocytic. Per PCP. Coronary artery disease, presumed. Atypical chest discomfort and occasional dyspnea reported. Possible silent myocardial infarction in the past with mild darryl-infarct ischemia (as suggested by stress echocardiogram). Symptoms are not affecting his quality of life. Continue medical therapy and risk modification recommended. Still, in view of the ongoing risk factors which are not fully modified and suggestion of anterior ischemia, we believe that defining his coronay anatomy would be important. We balanced pros and cons of invasive angiography versus CTA of the coronaries. At the end of the consultation, the patient chose to undergo CTA which we feel is reasonable to make sure we are not dealing with severe multivessel disease, left main or proximal LAD involvement. If those abnormalities are not identified and symptoms continue to be stable, we can continue to manage the patient medically. We will add a low-dose beta- chasidy to his regimen to help better control his blood pressure levels and dec rease his heart rate. This should further improve the image quality during CTA but will also be required long-term as long as able to be tolerated in the setting of his asthma. He agrees to proceed with a blood pressure log in 1 week. We will send a follow-up message to his primary care provider to see if there is indication to utilize lisinopril together with losartan as he appears to be doing currently. Not such indication exists from the cardiovascular standpoint (from our standpoint he may continue with losartan and discontinue lisinopril since losartan dose is already optimized). We discussed with the patient the importance of even more aggressive lifestyle changes as well as low-sodium diet. We recommended resumption of [place] 3 fish oil to improve his triglycerides. If upon future lipids his LDL is not less than 70, we should add ezetimibe to his regimen. We have asked the patient to call us with blood pressure log and symptoms in 1 week after initiation of metoprolol. Further up titration may be required at that time. Continue close follow-up with primary care provider for diabetes mellitus management which we understand is quite challenging. Lorri Quiñones M.D. may consider SGLT2 inhibitors or GLP-1 receptor agonists with demonstrated cardiovascular disease benefit, in case he is a candidate for that. Heart failure with reduced ejection fraction. We will make sure that this is not due to severe coronary artery disease by anatomic assessment (see discussion above). We have started him on metoprolol and up titrate as tolerated. We plan on repeating an echocardiogram in 3 months with follow-up cardiology after that time. The patient agrees to call us sooner in case of worsening symptoms. In case his ejection fraction worsens in spite of medical therapy and if he has significant coronary artery disease, viability assessment with revascularization will be considered. Fatigue. This is less likely to be an anginal equivalent and more likely to be due to untreated obstructive sleep apnea. His primary care provider may consider referring the patient back to a sleep specialist. He was last seen January 2019. Patient had only mild anemia hemoglobin 12.4 on 09/2019. His lastTSH was borderline elevated at 5.1 in June 2018 (4.5 01/2015) and could be repeated by his primary care provider or endocrinology. Continue management asthma with naprapath. Pancreatitis and anemia with primary care provider. PLAN: #1 Atherosclerotic Heart Disease [place] Coronary Artery With Other Forms Angina Pectoris (Angina Equivalent) ([facility]) - Cardiovascular Disease - General cardiology consult (clinic) - CT Cardiac Angiogram with Coronary Arteries with IV Contrast; Future; Expected date: 01/20/2020 - Creatinine with Estimated GFR - Echo Transthoracic (TTE); Future; Expected date: 04/20/2020 (Before next visit) Other orders - Cardiovascular Disease office visit (clinic); Future; Expected date: 04/20/2020 - metoprolol succinate (TOPROL-XL) 25 mg 24 hr tablet; Take 0.5 tablets (12.5 mg total) by mouth daily. Do not crush or chew., Starting Hali 01/20/2020, Normal - Follow up with Cardiology in 3 months (me or advanced practitioner) or call us sooner in case of problems or concerns. The patient expressed understanding of the information discussed during the visit today and agreement with the plan. CARDIOLOGY CONSULTATION Location: [facility]. Referring Provider: Chris Billings M.B.B.S., M.D. SUBJECTIVE CHIEF COMPLAINT/REASON FOR CONSULT Follow-up (stress echo) HISTORY OF PRESENT ILLNESS Mr. Jonnathan Costa is a very pleasant 74 y.o. male [facility], shortness of breath and abnormal stress test. His primary care provider is Lorri Fenton M.D.. Previously seen by Cardiology: No. Patient presents today to establish care. He states he is doing well from a cardiovascular standpoint with his only main complaint being fatigue. Patient states that he only has had 2-3 episodes of chest discomfort which occur once a month at rest (not triggered by exertion) and they reported as the 1/10 episode lasting for 2 seconds or so. He states he is active exercising regularly. In fact, 5 daysago he walked for 4 miles without cardiovascular symptoms. The discomfort has been present for the past 2-3 months as if someone was pinching his skin for 2 seconds or so. He reports no prior history of myocardial infarction but has had 3 TIAs in the past. He does get short of breath from his asthma but that has not been a recent problem. He does have abdominal discomfort and diarrhea if he does not take his enzymes for pancreatitis. Has some lower extremity edema but that is improved. The patient states the blood pressures at home around 130-140 mmHg. History of sleep apnea but unable to tolerate CPAP. He states that he has nocturia. No history of alcoholism in the past but he the get intoxicatedwith alcohol in 1973 and decided to quit at that time. Now he drinks no more than 1 beer once a week. He is very active at home at his yd. He quit smoking 1979. No illicit drug use. The patient states he is losing weight, approximately 20 lb over the last year. 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 Cardiovascular Risk Factors: 1. Smoking status: quit smoking approximately More than 20 years ago 2. Type II Diabetes Mellitus: yes. 3. Hypertension: yes 4. Dyslipidemia: yes. 5. Family history of early Coronary Artery Disease in a first degree relative (Male less than 55 years of age; Female less than 65 years of age): no 6. Obesity and/or Metabolic Syndrome: no 7. Sedentary lifestyle: no 8. Menopausal status: N/A Current Outpatient Medications Medication Sig ??? albuterol sulfate 90 mcg/actuation aerosol powdr [...] then 2 puffs twice daily if tolerated. ??? cholecalciferol, vitamin D3, (cholecalciferol) 1,000 Unit tablet Take 1,000 Units by mouth daily. ??? clopidogrel (PLAVIX) 75 mg tablet Take 1 tablet by mouth daily. ??? dilTIAZem CD (CARDIZEM CD/CARTIA XT) 240 mg 24 hr capsule Take 1 capsule (240 mg total) by mouthdaily. ??? escitalopram (LEXAPRO) 10 mg tablet Take 1 tablet (10 mg total) by mouth daily. ??? flash glucose scanning reader (PanvivaSTYLE ILEANA 14 DAY READER) misc Use as [...] tablet Take 1 tablet by mouth. ??? losartan (for_COZAAR) 100 mg tablet Take 1 tablet by mouth daily. ??? PEN NEEDLE, DIABETIC MISC Yani Fine 30 disposable needles. For use with Insulin Pens, 4 times daily ??? SYRINGE-NEEDLE,INSULIN,0.5 ML (INSULIN SYRINGE MISC) ??? albuterol (for_ACCUNEB) 2.5 mg /3 mL nebulizer solution Take 2.5 mg by nebulization every 6 (six) hours as needed for wheezing or shortness of breath. ??? chlorthalidone (HYGROTEN) 25 mg tablet Take 1 tablet (25 mg total) by mouth daily. ??? dilTIAZem (CARDIZEM) 60 mg tablet Take 1 tablet (60 mg total) by mouth once for 1 dose. ??? isosorbide mononitrate (IMDUR) 30 mg 24 hr tablet Take 1 tablet (30 mg total) by mouth daily. ??? LORazepam (ATIVAN) 0.5 mg tablet Take 1 tablet (0.5 mg total) by mouth at bedtime as needed for anxiety for up to 15 days. (Patient not taking: Reported on 01/26/2019 ) ??? metFORMIN (GLUMETZA) 1,000 mg 24 hr tablet Take 1 tablet (1,000 mg total) by mouth 2 (two) timesa day with meals. ??? omega-3 fatty acids-fish oil 300-1,000 mg capsule Take 1 g by mouth daily. Not currently on [place] 3 fish oil, metformin short-acting diltiazem or chlorthalidone. Unsure if is taking isosorbide mononitrate. Confirm to nursing that he is taking lisinopril and losartan. Allergies Allergen Reactions ??? Doxycycline Anaphylaxis Bactrim ??? Penicillin Hives Cerner Listed no Reactions ??? Sulfa (Sulfonamide Antibiotics) Other (see comments) Abdulkadir Listed no Reactions ??? Amlodipine Hypotension ??? Victoza 2-Eyal [Liraglutide] GI intolerance ??? Gadavist [Gadobutrol] GI intolerance Patient vomited after administration No iodine dye allergy. Status post abdomen CTA without issues (he does not recall being pretreated for that). He did problems with vomiting secondary to gadolinium use for an MRI in the past. Social History Socioeconomic History ??? Marital status: Spouse name: None ??? Number of children: None ??? Years of education: None ??? Highest education level: Master's degree (e.g., MA, MS, Martin, MEd, [employer], [employer]) Occupational History Employer: RETIRED Social Needs ??? Financial resource strain: Not hard at all ??? Food insecurity Worry: Never true Inability: Never true ??? Transportation needs Medical: No Non-medical: No Tobacco Use ??? Smoking status: Former Smoker Packs/day: 2.00 Years: 0.00 Pack years: 0.00 Types: Cigarettes, Pipe Start date: 07/13/1957 Last attempt to quit: 1980 Years since quittin.3 ??? Smokeless tobacco: Never [...] week Gets together: Twice a week Attends moravian service: 1 to 4 times per year [...] Brother ??? Asthma Son REVIEW OF SYSTEMS Constitutional: Positive for fatigue. Skin: Positive for skin rash. Eyes: Positive for visual problems. ENT: Positive for sinus congestion. Respiratory: Positive for dyspnea (Minimal). Cardiovascular: Positive for chest pain, pressure or tightness (Not for the past month) and swellingin the legs or feet. Negative for rapid or fluttering heart beat and shortness of breath when lying flat. Gastrointestinal: Positive for difficulty swallowing. Genitourinary: Positive for frequent urination. Hematologic: Positive for bruises or bleeds easily. Musculoskeletal: Positive for muscle pain/stiffness. Neurological: Positive for excessive daytime sleepiness and headaches. Negative for loss of consciousness and light-headedness. Psychiatric/Behavioral: Positive for excessive daytime sleepiness/tiredness. The following portions of the patient's history were reviewed and updated as appropriate: allergies,current medications, family history, medical history, social history, surgical history and problem list. OBJECTIVE Vitals: 01/20/20 0922 01/20/20 0927 BP: 140/70 136/68 BP Location: Right arm Right arm Patient Position: Sitting Sitting Cuff Size: Large Large Pulse: 70 Resp: 18 Temp: 36.6 ??C TempSrc: Temporal SpO2: 96% Weight: 103 kg BP Readings from Last 3 Encounters: 01/20/20 136/68 12/15/19 147/81 11/25/19 143/72 Body mass index is 29.62 kg/m??. PHYSICAL EXAMINATION GENERAL: Patient is awake, alert, oriented x3. No acute distress. EYES: Pupils are equal and symmetric in size. No pallor. No icterus. No xanthelasma. ENT: Mask in place. No drainage from the ear canals bilaterally. NECK: No jugular venous distention. No carotid bruits. CHEST/LUNGS: No chest deformity. Normal respiratory effort. Good entry bilaterally. No adventitious sounds. CARDIOVASCULAR: Normal rate and regular rhythm. Normal S1 and S2. No murmurs, rubs, or gallops. Negative hepatojugular reflux. ABDOMEN: Soft, nontender, nondistended. LOWER EXTREMITIES: Lower extremity warm with 1 to 2+ pitting edema. UPPER EXTREMITIES: 2+ Radial pulses bilaterally. Normal capillary refill. No cyanosis. NEUROLOGIC: No focal motor findings in upper or lower extremities. DIAGNOSTICS I have reviewed the patient's current laboratory, imaging, and other diagnostic studies. Pertinent laboratory studies have been reviewed and are notable for: Hospital Outpatient Visit on 01/20/2020 Component Date Value ??? Ventricular Rate ECG/Min 01/20/2020 66 ??? NM Interval 01/20/2020 158 ??? QRSD Interval 01/20/2020 96 ??? QT Interval 01/20/2020 444 ??? QTC Interval 01/20/2020 465 ??? P Huntington 01/20/2020 2 ??? R Huntington 01/20/2020 -61 ??? T Wave [place] 01/20/2020 -25 Hospital Outpatient Visit on 01/13/2020 Component Date Value ??? Hemoglobin A1c, B 01/13/2020 9.8* Hospital Outpatient Visit on 01/13/2020 Component Date Value ??? Microalbumin 01/13/2020 2002.0 ??? Creatinine 01/13/2020 89 ??? Albumin/Creatinine Ratio 01/13/2020 2249* Hospital Outpatient Visit on 12/15/2019 Component Date Value ??? Ejection Fraction 12/15/2019 45 ??? Mid-Ascending Aorta 12/15/2019 37 ??? Wall Motion Score Index 12/15/2019 1.75 ??? LV Mass Index 12/15/2019 119 ??? LV End-Diastolic Diameter 12/15/2019 54 ??? LV End-Systolic Diameter 12/15/2019 41 ??? E Velocity 12/15/2019 1.4 ??? A Velocity 12/15/2019 0.7 ??? E/A 12/15/2019 2.00 ??? eVelocity Medial 12/15/2019 0.05 ??? eVelocity Lateral 12/15/2019 0.09 ??? E/eMedial 12/15/2019 28.0 ??? E/eLateral 12/15/2019 15.6 ??? LV Interventricular Sept* 12/15/2019 13 ??? LV Posterior Wall Thickn* 12/15/2019 12 ??? Relative Wall Thickness 12/15/2019 44 ??? TR Vmax 12/15/2019 2.97 ??? RA Pressure 12/15/2019 5 ??? RV Systolic Pressure 12/15/2019 40 ??? MV mean gradient 12/15/2019 3 ??? WMSI At Rest 12/15/2019 1.75 ??? WMSI At Peak Stress 12/15/2019 1.88 Appointment on 12/15/2019 Component Date Value ??? VC MAX PRE 12/15/2019 3.87 ??? FVC 12/15/2019 3.87 ??? FEV1 12/15/2019 2.62 ??? FEV1/FVC 12/15/2019 67.58 ??? VSQ44-91% 12/15/2019 1.41 ??? PEF PRE 12/15/2019 7.01 ??? FET PRE 12/15/2019 12.56 ??? DLCO 12/15/2019 17.97 ??? VA 12/15/2019 6.35 ??? U1QvjLybq 12/15/2019 96.00 ??? PulseRest 12/15/2019 85.00 ??? C1AsuHtxm 12/15/2019 93.00 ??? PulseExer 12/15/2019 103.00 ??? EXER TIME 12/15/2019 3.00 ??? STEP HEIGHT PRE 12/15/2019 9.00 ??? % PRED VC MAX 12/15/2019 86.08 ??? FVC% 12/15/2019 86.08 ??? FEV1% 12/15/2019 78.76 ??? % PRED FEV1/FVC 12/15/2019 90.68 ??? % PRED FEF 25-75% 12/15/2019 60.23 ??? % PRED PEF 12/15/2019 78.97 ??? PRED VC MAX 12/15/2019 4.50 ??? PRED FVC 12/15/2019 4.50 ??? PRED FEV 1 12/15/2019 3.32 ??? PRED FEV1/FVC 12/15/2019 74.53 ??? PRED FEF 25-75% 12/15/2019 2.34 ??? PRED PEF 12/15/2019 8.87 Diagnostic on 12/15/2019 Component Date Value ??? Exhaled NO Oral 12/15/2019 64 ??? Parts per billion (ULN) 12/15/2019 39 ??? ENOComment 12/15/2019 Patient takes Albuterol, [facility] Outpatient Visit on 11/18/2019 Component Date Value ??? Case Number 11/18/2019 [id number] ??? Fixative 11/18/2019 50% REAGENT ALCOHOL ??? Report electronically si* 11/18/2019 Value:Brady Goodrich MD I verify that I have examined all relevant slides/materials for the specimen(s) and rendered or confirmed the diagnosis. ??? Gross Description 11/18/2019 Received 80 ml of cloudy yellow alcohol fixed fluid. ??? Collection Procedure 11/18/2019 VOIDED ??? Source 11/18/2019 A. Urine, Clean Catch, voided ??? Clinical History 11/18/2019 Z85.51 ??? Interpretation 11/18/2019 Value:A. Urine, Clean Catch, voided (cytospin): Negative for High-Grade Urothelial Carcinoma. Hospital Outpatient Visit on 10/20/2019 Component Date Value ??? Hemoglobin 10/20/2019 12.4* ??? Hematocrit 10/20/2019 36.4* ??? Erythrocytes 10/20/2019 4.15* ??? MCV 10/20/2019 87.7 ??? RBC Distrib Width 10/20/2019 12.7 ??? Platelet Count 10/20/2019 257 ??? Leukocytes 10/20/2019 7.8 ??? Potassium, S 10/20/2019 4.2 ??? Sodium, S 10/20/2019 141 ??? Glucose, P 10/20/2019 181* ??? Last Intake 10/20/2019 5 ??? Prothrombin Time, P 10/20/2019 11.4 ??? INR 10/20/2019 1.0 Appointment on 10/20/2019 Component Date Value ??? Cholesterol, Total, S 10/20/2019 172 ??? Triglycerides, S 10/20/2019 214* ??? Cholesterol, HDL, S 10/20/2019 35* ??? Calculated LDL 10/20/2019 94 ??? Non HDL Cholesterol 10/20/2019 137 ??? C-Peptide, S 10/20/2019 2.2 Appointment on 10/20/2019 Component Date Value ??? Ventricular Rate ECG/Min 10/20/2019 73 ??? NM Interval 10/20/2019 142 ??? QRSD Interval 10/20/2019 110 ??? QT Interval 10/20/2019 416 ??? QTC Interval 10/20/2019 459 ??? P Huntington 10/20/2019 35 ??? R Huntington 10/20/2019 -40 ??? T Wave [place] 10/20/2019 48 There may be more visits with results that are not included. Lab Results Component Value Date CHOL 172 10/20/2019 TRIG 214 (H) 10/20/2019 HDL 35 (L) 10/20/2019 HDL 29 (L) 02/27/2017 LDLDIRECT 88 02/27/2017 Ecg 12 Lead Result Date: 01/20/2020 Normal sinus rhythm Left anterior fascicular block Nonspecific ST and T wave abnormality When compared with ECG of 20-OCT-2019 13:23, QRS axis has changed Reviewed by SEAN Jesus Results for orders placed during the hospital encounter of 11/16/19 DX Chest AP or PA and Lateral 2 Views Narrative EXAM: DX CHEST AP OR PA AND LATERAL 2 VIEWS COMPARISON: 05/16/2016 FINDINGS: Cardiomediastinal silhouette and pulmonary vasculature are within normal limits. Aortic calcifications. Mild bibasilar scarring/atelectasis. Hyperinflated lungs. No acute consolidation, pleural effusion, or pneumothorax area no acute finding in the bones or upper abdomen. Spondylosis. Impression No acute radiographic abnormality. The ASCVD Risk score ([place] Jr., et al., 2013) failed to calculate for the following reasons: The patient has a prior UT or stroke diagnosis Pertinent cardiac (or related) studies have been reviewed and are notable for: Cardiopulmonary exercise stress echocardiogram 11/2019: 1. Exercise echocardiogram positive for anterior myocardial ischemia. 2. The patient???s exercise capacity was limited. 3. Ejection fraction response from 45 % at rest to 50 % at peak stress. 4. Left ventricular end?systolic volume decreased with stress. 5. Resting regional wall motion abnormalities (see wall motion graphics). 6. Estimated right ventricular systolic pressure was 40 mmHg at rest and 55 mmHg with stress. 7. Findings consistent with elevated left ventricular filling pressure at rest and with exercise. 8. O2 uptake data detailed in the Electronic Medical Record (Cardiopulmonary (VO2) Exercise Test). 9. OTHER ECHO FINDINGS: 10. Severely calcified mitral annulus. 11. Mitral valve diastolic mean Doppler gradient 3 mmHg (heart rate 64 BPM). Not assessed at peak exercise. 12. Mildly increased concentric left ventricular wall thickness. Limited peak VO2. Cannot rule out some cardiac impairment to exercise at the level tested. Reason so low peak VO2 include less than maximal effort, deconditioning and limited heart rate reserve. Abnormal pulmonary response include elevated VE/VCO2. Stress electrocardiogram negative for ischemia. Pulmonary function test 11/2019: Abnormal. Diffusing capacity, unadjusted for hemoglobin, is mildly reduced, consistent with a pulmonary parenchymal or vascular process or anemia. Normal spirometry. Oxygen saturation is normal at rest and during exercise. When compared to 10/14/2016, FVC, FEV1 and diffusing capacity have decreased. Due to current enhanced infection control measures, Methacholine testing was not performed. IMPRESSION/REPORT/PLAN See above. documented in this encounter Plan of Treatment Scheduled Referrals Name Type Priority Associated Order Schedule Diagnoses Cardiovascular Disease Outpatient Referral Routine Expected: office visit (clinic) 2019 (Approximate), Expires: 01/19/2023 documented as of this encounter Procedures Procedure Name Priority Date/Time Associated Diagnosis Comme nts CREATININE WITH Routine 01/20/2020 10:52 Atherosclerotic Heart Results for this EGFR, S/P AM CDT Disease [place] Coronary proc edure are in Artery With Other Forms the results Angina Pectoris (Angina sect ion. Equivalent) (HCC) documented in this encounter Results (TTE) 2D ECHO DOPPLER COLOR (04/17/2020 10:06 AM CDT) [facility] gist Method Time Signature Ejection Fraction 42 MC [...] effusion. For the complete report, see the [employer] Documents. Narrative 04/17/2020 1:23 PM CDT For the complete report, see the [employer] Documents. Final Impressions 1. Mildly enlarged left [...] 04/17/2020 For the complete report, see the [employer] Documents. Final Impressions 1. Mildly enlarged left [...] Documents. Koko Bañuelos M.D. CV ECHO PROCEDURES CT Cardiac Angiogram with Coronary Arteries with [...] , this study is being sent to [facility] for coronary FFRct analysis. ??FFRct res ults [...] in the lateral basal left lower lobe (/44). CAD-RADS CATEGORIES: (based on most olinda re [...] , this study is being sent to [facility] for coronary FFRct analysis. FFRct resul ts will be reported separately when analysis by [facility] is complete Koko Bañuelos M.D. IMG CT PROCEDURES (ABNORMAL) Creatinine with Estimated GFR (01/20/2020 10:52 AM CDT) P athologist Signature Creatinine 1.27 0.74 - 01/20/2020 [facility] 1.35 mg/dL 11:32 AM CDT eGFR-Black/Afric 63 >=60 01/20/2020 OW[facility] an Portuguese mL/min/BSA 11:32 AM CDT Comment: ----ADDITIONAL INFORMATION---- Estimated GFR calculated using the 2009 CKD_EPI creatinine equation. eGFR Non-Black/ 55 (L) >=60 mL/min/BSA 01/20/2020 11:32 AM CDT [facility] Portuguese Comment: ----ADDITIONAL INFORMATION---- Estimated GFR calculated using the 2009 CKD_EPI creatinine equation. Specimen Anatomical Collection Method Collection Time Receive d Time (Source) Location / / Volume Laterality Blood (Blood, 01/20/2020 10:52 01/20/2020 Venous) AM CDT 11:00 AM CDT Koko Bañuelos M.D. 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 PCP - General Family Medicine 01/10/20 05/21/[address] [place] [address] [place] [phone] documented as of this encounter
--- OUTSIDE RECORDS SUMMARY | 2022-05-21 11:30 | XMS_ITS | Encounter Summary ---
:1945 Author Organization [facility] Address [address] [place] [address] Care Team Providers Name Role Phone Ewa Alejandro M.D. Primary Care Provider [phone] Encounter Details Date Type Department Care Team Description 11/18/2019 Hospital Encounter Department of Dolores, Personal History Of Laboratory Medicine Pato Mims Malignant Neoplasm Of in [place], [address] [place] [phone] Social History Tobacco Use Types Packs/Day [...] do you attend alevism or Never 2021 congregation services? Do you [...] have completed or the highest Martin, MEd, SOLID FIBER PASTER OPERATOR, [place]) degree you have received? Sex [...] SYRINGE-NEEDLE,INSULIN, 0 0.5 ML (INSULIN SYRINGE MISC) [id number] Take 2 capsules by 240 capsule 3 [...] 05/01/2020 reader (FREESTYLE ILEANA 14 DAY READER) [facility] flash glucose sensor Use [...] Priority Date/Time Associated Diagnosis Comme nts CYTOLOGY NON-LOSS PREVENTION SUPERVISOR Routine 11/18/2019 9:01 AM Personal History O f Results for this (SCHEDULED) EDUCATIONAL TECHNOLOGY COORDINATOR Malignant Neoplasm procedure are in Of Bladder the results section. documented in this encounter Results Cytology Non-LOSS PREVENTION SUPERVISOR (Scheduled) (11/18/2019 9:01 AM EDUCATIONAL TECHNOLOGY COORDINATOR) Component Value Ref Test Analysis Performed At [facility] gist Range Method Time Signature 11/19/2019 [facility] 10:23 AM EDUCATIONAL TECHNOLOGY COORDINATOR Fixative 50% REAGENT 11/19/2019 [facility] ALCOHOL 10:23 AM EDUCATIONAL TECHNOLOGY COORDINATOR Report Brady Goodrich MD 11/19/2019 [facility] electronically I verify that I have examined all relevant slides/ma terials 10:23 AM signed by for the specimen(s) and rendered or confirmed the diagnosis. EDUCATIONAL TECHNOLOGY COORDINATOR Gross Description Received 80 11/19/2019 [facility] ml of cloudy 10:23 AM yellow EDUCATIONAL TECHNOLOGY COORDINATOR alcohol fixed fluid. Collection VOIDED 11/19/2019 [facility] Procedure 10:23 AM EDUCATIONAL TECHNOLOGY COORDINATOR Source A. Urine, 11/19/2019 [facility] Clean Catch, 10:23 AM voided EDUCATIONAL TECHNOLOGY COORDINATOR Clinical History Z85.51 11/19/2019 [facility] 10:23 AM EDUCATIONAL TECHNOLOGY COORDINATOR Interpretation A. 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 10:23 A M EDUCATIONAL TECHNOLOGY COORDINATOR Specimen Anatomical Collection Method Collection Time Receive d Time (Source) Location / / Volume Laterality Varies (Urine, 11/18/2019 9:01 AM 020 7:13 Clean Catch) EDUCATIONAL TECHNOLOGY COORDINATOR AM EDUCATIONAL TECHNOLOGY COORDINATOR Narrative This result has an attachment that is no t available. Prasanna Bernal M.D. LAB SURG PATH ORDERABLES Performing Organization Address City/State/ZIP Code Phon e Number [facility]- [address] [place] [address] [facility] [place] [address] [facility] [address] [facility] documented in this encounter Visit Diagnoses Diagnosis Personal History Of Malignant Neoplasm O f Bladder documented in this encounter Additional Health Concerns Assessment Noted Time PHQ-9 Depression Total Score: 18 04/28/2018 11:27 AM C DT documented as of this encounter Care Teams Courtesy Driver Relationship Specialty Start Date End Date Ewa Alejandro M.D. PCP - General 03/13/17 01/09/[address] [place] [address] documented as of this encounter
--- OUTSIDE RECORDS SUMMARY | 2022-05-21 11:30 | XMS_ITS | Encounter Summary ---
:1945 Author Organization [facility] Address [address] [place] [address] Care Team Providers Name Role Phone Ewa Alejandro M.D. Primary Care Provider [phone] Reason for Visit Reason Comments Treatment Questions Encounter Details Date Type Department Care Team Description 12/11/2019 Clinical Communication Division of [facility], Prachi bernardo Questions [facility]ly [facility] Internal D, R.N. Medicine, [place], [place] [address] [place] [address] Social History Tobacco Use Types Packs/Day Years [...] do you attend mandaeism or Never 2021 jehovah's witness services? Do [...] have completed or the highest Martin, MEd, PLASTICS SHEET FINISHING PRESS OPERATOR, [place]) degree you have received? Sex Assigned at Date Recorded Male 05/21/2018 2:34 PM CDT documented as of this encounter Miscellaneous Notes Telephone Encounter - Class, Prachi Cee R.N. - 12/11/2019 12:39 PM CDT Nurse Phone Triage Assessment SUBJECTIVE None CHIEF COMPLAINT / REASON FOR CALL Questions regarding novel coronavirus (COVID-19) HISTORY OF PRESENT ILLNESS Jonnathan Costa calls to report SOB symptoms began 12/06/2019 Productive chronic cough Pt denies fever Does patient have fever, cough or respiratory symptoms? Yes If no to the above, consider alternative diagnosis. We are not currently testing or isolating asymptomatic patients. If yes to fever, cough, or respiratory symptoms Have you had close contact with a person with a laboratory confirmed case of COVID-19? No SYMPTOM ASSESSMENT Do you have lightheadedness? No Do you feel like you may collapse when you sit or stand up? No Respiratory effort/distress: SOB with exertion Date of onset of SOB: 12/06/2019 (*Note to nurse: If patient has SOB at rest, lightheadedness or feels as if they will collapse everytime they sit or stand or up, the patient should present to the ED.) Cough: Productive, describe: chronic Date of onset of cough: Fever: No PLAN Endpoint recommendation: Home care Care Points provided: Wash hands often with soap and water for at least 20 seconds, especially afterblowing your nose, coughing, sneezing, or having been in a public place., Stay home except to get medical care. and Notify primary care provider if any new or worsening symptoms. Education: patient/caller Patient/caregiver able to teach back Caller agreeable to plan of care: Yes The following references were used: [facility] novel coronavirus (COVID- 19) resources documented in this encounter Plan of Treatment Not on filedocumented as of this encounter Visit Diagnoses Not on filedocumented in this encounter Additional Health Concerns Assessment Noted Time PHQ-9 Depression Total Score: 18 04/28/2018 11:27 AM C DT documented as of this encounter Care Teams Solutions Engineer Relationship Specialty Start Date End Date Ewa Alejandro M.D. PCP - General 03/13/17 01/09/20 [address] [address] documented as of this encounter
--- OUTSIDE RECORDS SUMMARY | 2022-05-21 11:30 | XMS_ITS | Encounter Summary ---
:1945 Author Organization [facility] Address [address] [place] [address] Care Team Providers Name Role Phone Ewa Alejandro M.D. Primary Care Provider [phone] Reason for Referral Outpatient (Routine) - Closed Specialty Diagnoses / Procedures Referred By Contact Refer red To Contact Diagnoses Diabetes Mellitus Type 2 With Diabetic Neuropathy (HCC) Pancreatitis Chronic (HCC) Exocrine Pancreatic Insufficiency Keisha Lopez APRN, [facility] Procedures EUS C.N.Andrea, M.S.N. [address] [place] [address] [phone] Referral ID Status Reason Start Date Expiration Date Visits Requ ested Visits Authorized [id number] Closed 12/17/2019 12/16/2020 1 1 Reason for Visit Reason Comments appointment question Encounter Details Date Type Department Care Team Description 12/10/2019 Clinical Division of Keisha Lopez appointment Communication Gastroenterology in [place] Yeung questio n [place], [place] C.NKerry, M.S.N. [address] [facility] [address] [place] [phone] Social History Tobacco Use Types Packs/Day Years [...] or relatives? How often do you attend temple or Never 2021 hinduism services? Do you belong to any clubs or No 10/09/2021 organizations such as temple groups, unions, fraternal or athletic groups, or [...] have completed or the highest Martin, MEd, TRANSPORTATION TECHNICIAN, [place]) degree you have received? Sex Assigned at Date Recorded Male 05/21/2018 2:34 PM CDT documented as of this encounter Miscellaneous Notes Telephone Encounter - Mamta Galarza - 12/17/2019 10:41 AM CDT Patient contacted to advise on Keisha's recommendation, reminder set Telephone Encounter - Daphney Batista R.N. - 12/16/2019 10:17 AM CDT SUBJECTIVE CHIEF COMPLAINT / REASON FOR CALL appointment question Information Discussed Updated patient on Keisha Lopez's recommendations below. Patient will continue to follow with his Picker / Packer and prefers to have EUS at [place]. Questions answered. Patient verbalized understanding and was appreciative of call. PLAN Disposition/Recommendation: per Keisha Lopez Information/Education: patient/caller able to teach back Caller agreeable to plan of care: yes The following references were used: provider Keisha Lopez CNP Telephone Encounter - Daphney Batista R.N. - 12/10/2019 11:51 AM CDT SUBJECTIVE CHIEF COMPLAINT / REASON FOR CALL appointment question Information Discussed Spoke with patient at length and reviewed Creon education including it's purpose, how and when to take it, side effects (such as constipation) and titration of the medication. Additionally, reviewed Keisha Lopez CNP's note from 10/11/2019 and result note from 11/04/2019. Patient states he is continuing to work on his diabetes management with endocrinology and his A1c is improving. Patient plans to try taking his Creon more diligently and throughout his meals. Updated patient RN would pass along message to Keisha Lopez. Patient was very appreciative of call. PLAN Disposition/Recommendation: notified provider and awaiting recommendations Information/Education: patient/caller able to teach back Caller agreeable to plan of care: yes The following references were used: nursing clinical judgment and provider Keisha Lopez CNP documented in this encounter Plan of Treatment Not on filedocumented as of this encounter Visit Diagnoses Diagnosis 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) - Primary Pancreatitis Chronic (HCC) Exocrine Pancreatic Insufficiency documented in this encounter Additional Health Concerns Assessment Noted Time PHQ-9 Depression Total Score: 18 04/28/2018 11:27 AM C DT documented as of this encounter Care Teams Director Statistical Programming Relationship Specialty Start Date End Date Ewa Alejandro M.D. PCP - General 03/13/17 01/09/[address] [place] [phone] documented as of this encounter
--- OUTSIDE RECORDS SUMMARY | 2022-05-21 11:31 | XMS_ITS | Encounter Summary ---
:1945 Author Organization [facility] Address [address] [place] [address] Care Team Providers Name Role Phone Ewa Alejandro M.D. Primary Care Provider [phone] Encounter Details Date Type Department Care Team Description 10/20/2019 Hospital Encounter Department of Keisha Lopez, Panc reatitis Chronic (HCC); Laboratory Medicine SUPPLY OFFICER, C.N.P., Exocrin e Pancreatic Insufficiency (HCC) and Pathology, [facility] [address] [place] [phone] [place] [address] [place], [place] (Work) [phone] Social History Tobacco Use Types Packs/Day Years [...] do you attend shinto or Never 2021 druze services? Do you belong to any clubs or No 10/09/2021 organizations such as shinto groups, unions, fraTinybeans or athletic groups, or school groups? How [...] have completed or the highest Martin, MEd, HOSPITAL EDUCATOR, [place]) degree you have received? Sex Assigned [...] daily SYRINGE-NEEDLE,INSULIN, 0 0.5 ML (INSULIN SYRINGE MIS) [id number] Take 2 capsules by 240 capsule 3 [...] Name Priority Date/Time Associated Diagnosis Comme nts SODIUM, S/P Routine 10/20/2019 12:58 Pancreatitis Chronic Res ults for this PM RESIDENTIAL ROOFER (HCC) procedure are in Exocrine Pancreatic the resu lts Insufficiency ([facility]) section. POTASSIUM, S/P Routine 10/20/2019 12:58 Pancreatitis Chronic R esults for this PM RESIDENTIAL ROOFER (HCC) procedure are in Exocrine Pancreatic the resu lts Insufficiency ([facility]) section. GLUCOSE, FASTING, Routine 10/20/2019 12:58 Pancreatitis Chroni c Results for this S/P PM RESIDENTIAL ROOFER (HCC) procedure are in Exocrine Pancreatic the resu lts Insufficiency ([facility]) section. PROTHROMBIN TIME Routine 10/20/2019 12:57 Pancreatitis Chronic Results for this (PT), P PM RESIDENTIAL ROOFER ([facility]) procedure are in Exocrine Pancreatic the resu lts Insufficiency ([facility]) section. CBC WITHOUT Routine 10/20/2019 12:57 Pancreatitis Chronic Res ults for this DIFFERENTIAL, B PM RESIDENTIAL ROOFER (HCC) procedure are in Exocrine Pancreatic the resu lts Insufficiency ([facility]) section. documented in this encounter Results (ABNORMAL) Glucose, Fasting (10/20/2019 12:58 PM RESIDENTIAL ROOFER) P athologist Signature Glucose, P 181 (H) 70 - 100 10/20/2019 DTL mg/dL 2:22 PM RESIDENTIAL ROOFER Last Intake 5 hr 10/20/2019 DTL 1:18 PM RESIDENTIAL ROOFER Specimen Anatomical Collection Method Collection Time Receive d Time (Source) Location / / Volume Laterality Blood (Blood, 10/20/2019 12:58 10/20/2019 1:18 Venous) PM RESIDENTIAL ROOFER PM RESIDENTIAL ROOFER Keisha Lopez APRN, C.N.P., M.S.N. LAB BLOOD NON ADD- ON Performing Organization Address City/[facility] Phon e Number [facility] - [address] Sodium (10/20/2019 12:58 PM RESIDENTIAL ROOFER) athologist Signature Sodium, S 141 135 - 145 10/20/2019 2:20 DTL mmol/L PM RESIDENTIAL ROOFER Specimen Anatomical Collection Method Collection Time Receive d Time (Source) Location / / Volume Laterality Blood (Blood, 10/20/2019 12:58 10/20/2019 1:18 Venous) PM RESIDENTIAL ROOFER PM RESIDENTIAL ROOFER Keisha Lopez APRN, C.N.P., M.S.N. LAB BLOOD ADD-ON Performing Organization Address [facility] Phon e Number [facility] - [address] Potassium (10/20/2019 12:58 PM RESIDENTIAL ROOFER) athologist Signature Potassium, S 4.2 3.6 - 5.2 10/20/2019 DTL mmol/L 2:20 PM RESIDENTIAL ROOFER Specimen Anatomical Collection Method Collection Time Receive d Time (Source) Location / / Volume Laterality Blood (Blood, 10/20/2019 12:58 10/20/2019 1:18 Venous) PM RESIDENTIAL ROOFER PM RESIDENTIAL ROOFER Keisha Lopez APRN, C.N.P., M.S.N. LAB BLOOD ADD-ON Performing Organization Address City/[facility]/ZIP [facility] Phon e Number [facility] - [address] Prothrombin Time (PT) (10/20/2019 12:57 PM RESIDENTIAL ROOFER) athologist Signature Prothrombin 11.4 9.4 - 12.5 10/20/2019 DTL Time, P sec 1:37 PM RESIDENTIAL ROOFER INR 1.0 0.9 - 1.1 10/20/2019 DTL 1:37 PM RESIDENTIAL ROOFER Comment: ----ADDITIONAL INFORMATION---- Standard intensity warfarin therapeutic range: 2.0 to 3.0 ?? High intensity warfarin therapeutic rang e: 2.5 to 3.5 Specimen Anatomical Collection Method Collection Time Receive d Time (Source) Location / / Volume Laterality Blood (Blood, 10/20/2019 12:57 10/20/2019 1:18 Venous) PM RESIDENTIAL ROOFER PM RESIDENTIAL ROOFER Keisha Lopez APRN, C.N.P., M.S.N. LAB BLOOD ADD-ON Performing Organization Address City/[facility] Phon e Number [facility] - [address] [place], [place] [address] [place] [address] (ABNORMAL) CBC without Differential (10/20/2019 12:57 PM RESIDENTIAL ROOFER) [facility] gist Method Time Signature Hemoglobin 12.4 (L) 13.2 - 10/20/2019 DTL 16.6 g/dL 1:27 PM RESIDENTIAL ROOFER Hematocrit 36.4 (L) 38.3 - 10/20/2019 DTL 48.6 % 1:27 PM RESIDENTIAL ROOFER Erythrocytes 4.15 (L) 4.35 - 10/20/2019 DTL 5.65 1:27 PM RESIDENTIAL ROOFER x10(12)/L MCV 87.7 78.2 - 10/20/2019 DTL 97.9 fL 1:27 PM RESIDENTIAL ROOFER RBC Distrib Width 12.7 11.8 - 10/20/2019 DTL 14.5 % 1:27 PM RESIDENTIAL ROOFER Platelet Count 257 135 - 317 10/20/2019 DTL x10(9)/L 1:27 PM RESIDENTIAL ROOFER Leukocytes 7.8 3.4 - 9.6 10/20/2019 DTL x10(9)/L 1:27 PM RESIDENTIAL ROOFER Specimen Anatomical Collection Method Collection Time Receive d Time (Source) Location / / Volume Laterality Blood (Blood, 10/20/2019 12:57 10/20/2019 1:18 Venous) PM RESIDENTIAL ROOFER PM RESIDENTIAL ROOFER Keisha Lopez APRN, C.N.P., M.S.N. LAB BLOOD ADD-ON Performing Organization Address City/[facility] Phon e Number [facility] - [address] [address] [facility] [address] documented in this encounter Visit Diagnoses Diagnosis Pancreatitis Chronic (HCC) Exocrine Pancreatic Insufficiency documented in this encounter Additional Health Concerns Assessment Noted Time PHQ-9 Depression Total Score: 18 04/28/2018 11:27 AM C DT documented as of this encounter Care Teams Director Of Analytics Relationship Specialty Start Date End Date Ewa Alejandro M.D. PCP - General 03/13/17 01/09/[address] [phone] documented as of this encounter
--- OUTSIDE RECORDS SUMMARY | 2022-05-21 11:31 | XMS_ITS | Encounter Summary ---
:1945 Author Organization [facility] Address [address] [place] [address] Care Team Providers Name Role Phone Ewa Alejandro M.D. Primary Care Provider [phone] Reason for Referral Outpatient (Routine) - Closed Specialty Diagnoses / Procedures Referred By Contact Refer red To Contact Diagnoses Pancreatitis Chronic (HCC) Exocrine Pancreatic Insufficiency Deficiency Vitamin D [facility] Procedures BMD Bone Density Spine Hips C.N.P., M.S.N. 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 [address] [place] [phone] Referral ID Status Reason Start Date Expiration Date Visits Requ ested Visits Authorized [id number] Closed 10/19/2019 10/18/2020 1 1 Encounter Details Date Type Department Care Team Description 10/20/2019 Hospital Encounter Department of Keisha Lopez Panc reatitis Chronic (HCC); Radiology, Leanne TRIVEDI C.N.P., Lexy German ancreatic Insufficiency (HCC); Building, in M.S.N. Deficiency Vitamin D [place], [address] [place], [place] [address] [facility] [address] [place], [place] [phone] (Work) [phone] Social History Tobacco Use Types Packs/Day Years [...] do you attend hinduism or Never 2021 sabianism services? Do you [...] have completed or the highest Martin, MEd, PAINTER SHIPYARD, CAYDEN) degree you have received? Sex Assigned [...] daily SYRINGE-NEEDLE,INSULIN, 0 0.5 ML (INSULIN SYRINGE [facility]) [id number] Take 2 capsules by 240 capsule 3 [...] 05/01/2020 reader (FREESTYLE ILEANA 14 DAY READER) [facility] flash glucose sensor Use as directed. 6 [...] Name Priority Date/Time Associated Diagnosis Comme nts BMD BONE DENSITY RAD - Routine 10/20/2019 12:21 Pancreatitis Chroni c Results for this SPINE HIPS (most inpatients PM GRATING MACHINE OPERATOR (HCC) procedure are in and all Exocrine Pancreatic the resu lts outpatients) Insufficiency (H CC) section. Deficiency Vitamin D documented in this encounter Results BMD Bone Density Spine Hips (10/20/2019 12:21 PM GRATING MACHINE OPERATOR) Anatomical Region Laterality Modality Hip, Lumbar Spine, Nuclear Medicine RST LOS, N/A Radiographic Imaging Musculoskeletal ARZ LOS, Muskuloskeletal FLA LOS Specimen (Source) Anatomical Collection Method Collection Time Re ceived Time Location / / Volume Laterality 10/20/2019 12:32 PM GRATING MACHINE OPERATOR Impressions 10/20/2019 12:32 PM GRATING MACHINE OPERATOR No evidence of osteoporosis or osteopeni a found Narrative 10/20/2019 12:32 PM GRATING MACHINE OPERATOR EXAM: ??BMD BONE DENSITY SPINE HIPS FINDINGS: Left Hip [single scan]: ?Femur Neck: BMD = ??1.262 g/cm (sq ) ?T-score = ??1.6 ?Z-score = ??2.4 ?Total Hip: BMD = ??1.266 g/cm (sq) ?T-score = ??2.1 ?Z-score = ??1.6 Right Hip [single scan]: ?Femur Neck: BMD = ??1.280 g/cm (sq ) ?T-score = ??1.7 ?Z-score = ??2.5 ?Total Hip: BMD = ??1.244 g/cm (sq) ?T-score = ??1.9 ?Z-score = ??1.5 Lumbar Spine ??[single scan]: ?Only one vertebra could be analyze d. Spine considered non-diagnostic (ISCD Guidelines). Please note: A more comprehensive DXA re port, including images and graphs, is available in QREADS. ?In the absence of other causes of low BMD or demonstrated skeletal ?fragility, osteoporosis may be yunior gnosed in post-menopausal ? women when the T-score i s at or below -2.5 as defined by ?the WHO. Osteopenia is present at T-scores between -1 and -2.5 and ?normal BMD when T-score is at or a blaine -1.0. The diagnosis in ?pre-menopausal women and men can b e based on low bone mass or ?evidence of skeletal fragility in the appropriate clinical setting. Today's spine scan is considered non-yunior gnostic as valid results were available for only one vertebra (ISCD Guidelines). Patient does not meet ISCD guidelines fo r FRAX calculations. Procedure Note Chris Mckeon M.D. - 10/20/2019Format ting of this note might be different from the original. EXAM: BMD BONE DENSITY SPINE HIPS FINDINGS: Left Hip [single scan]: Femur Neck: BMD = 1.262 g/cm (sq) T-score = 1.6 Z-score = 2.4 Total Hip: BMD = 1.266 g/cm (sq) T-score = 2.1 Z-score = 1.6 Right Hip [single scan]: Femur Neck: BMD = 1.280 g/cm (sq) T-score = 1.7 Z-score = 2.5 Total Hip: BMD = 1.244 g/cm (sq) T-score = 1.9 Z-score = 1.5 Lumbar Spine [single scan]: Only one vertebra could be analyzed. Sp ine considered non-diagnostic (ISCD Guidelines). Please note: A more comprehensive DXA re port, including images and graphs, is available in QREADS. In the absence of other causes of low B MD or demonstrated skeletal fragility, osteoporosis may be diagnose d in post-menopausal women when the T-score is at or below -2.5 as defined by the WHO. Osteopenia is present at T-sco res between -1 and -2.5 and normal BMD when T-score is at or above -1.0. The diagnosis in pre-menopausal women and men can be bas ed on low bone mass or evidence of skeletal fragility in the a [facility]. Today's spine scan is considered non-yunior gnostic as valid results were available for only one vertebra (ISCD Guidelines). Patient does not meet ISCD guidelines fo r FRAX calculations. IMPRESSION: No evidence of osteoporosis or osteopeni a found Keisha Lopez APRN, C.N.P., M.S.N. IMG DXA PROCEDURES documented in this encounter Visit Diagnoses Diagnosis Pancreatitis Chronic (HCC) Exocrine Pancreatic Insufficiency Deficiency Vitamin D documented in this encounter Additional Health Concerns Assessment Noted Time PHQ-9 Depression Total Score: 18 04/28/2018 11:27 AM C DT documented as of this encounter Care Teams Buffet Server Relationship Specialty Start Date End Date Ewa Alejandro M.D. PCP - General 03/13/17 01/09/20 [address], [place] [phone] documented as of this encounter
--- OUTSIDE RECORDS SUMMARY | 2022-05-21 11:31 | XMS_ITS | Encounter Summary ---
:1945 Author Organization [facility] Address [address] [place] [address] Care Team Providers Name Role Phone Ewa Alejandro M.D. Primary Care Provider [phone] Encounter Details Date Type Department Care Team Description 07/19/2019 Clinical Communication Division of [facility] in Rhoda Stein [place], [place] [address] [facility] [address] [place] [phone] Social History Tobacco Use Types Packs/Day Years [...] do you attend samaritan or Never 2021 mormon services? Do you [...] have completed or the highest Martin, Sirena, PRODUCT MARKETING COORDINATOR, CAYDEN) degree you have received? Sex Assigned at Date Recorded Male 05/21/2018 2:34 PM CDT documented as of this encounter Plan of Treatment Not on filedocumented as of this encounter Visit Diagnoses Not on filedocumented in this encounter Additional Health Concerns Assessment Noted Time PHQ-9 Depression Total Score: 18 04/28/2018 11:27 AM C DT documented as of this encounter Care Teams Shaper Hand Relationship Specialty Start Date End Date Ewa Alejandro M.D. PCP - General 03/13/17 01/09/[address] [address] documented as of this encounter
--- OUTSIDE RECORDS SUMMARY | 2022-05-21 11:31 | XMS_ITS | Encounter Summary ---
:1945 Author Organization [facility] Address [address] [place] [address] Care Team Providers Name Role Phone Ewa Alejandro M.D. Primary Care Provider [phone] Reason for Referral MRI/CAT/PET Scan (Routine) - Closed Specialty Diagnoses / Procedures Referred By Contact Refer red To Contact Radiology Diagnoses Pancreatitis Chronic (HCC) mEil Zurita M.D. [facility] Procedures CT Abdomen Pelvis with IV Contrast [place] CT ABD&PELVIS W CNTRST HC CT ABD&PELVIS W CNTRST [place] CT ABD&PELVIS W CNTRST [address] [place], [place] [address] Referral ID Status Reason Start Date Expiration Date Visits Requ ested Visits Authorized [id number] Closed 09/15/2018 09/15/2019 1 1 EM SUPPORT ANALYST Reason for Visit Outpatient (Routine) - Closed Specialty Diagnoses / Procedures Referred By Contact Refer red To Contact Radiology Diagnoses Pancreatitis Chronic (HCC) [place] [phone] Emil Zurita M.D. [address]st [address] [place] [address] ABDOMEN PELVIS WITH IV CONTRAST RAD CT ABDOMEN PELVIS [address] [facility] [address] [place] [address] [place] [address] Fax: Referral ID Status Reason Start Date Expiration Date Visits Requ ested Visits Authorized [id number] Closed 10/11/2019 10/10/2020 1 1 Encounter Details Date Type Department Care Team Description 10/11/2019 Hospital Encounter Department of Camilla Zurita Chronic Radiology, Agustín Stein M.D. ([facility]) Building, in [address] [place] [address] [place] [address] [place], [place] [phone] (Work) [phone] Social History Tobacco Use Types Packs/Day Years [...] do you attend baptism or Never 2021 adventism services? Do you [...] have completed or the highest Martin, MEd, FRAME STRAIGHTENER, CAYDEN) degree you have received? Sex Assigned at Date Recorded Male 05/21/2018 2:34 PM CDT documented as of this encounter Last Filed Vital Signs Vital Sign Reading Time Taken Comments Blood Pressure - - Pulse - - Temperature - - Respiratory Rate - - Oxygen Saturation - - Inhaled Oxygen Concentration - - Weight - - Height 188 cm (6' 2) 10/11/2019 10:27 AM SYSTEM SUPPORT ANALYST Body Mass Index - - documented in this encounter Medications at Time [...] SYRINGE-NEEDLE,INSULIN, 0 0.5 ML (INSULIN SYRINGE MISC) [id number] Take 2 capsules by 240 capsule 3 [...] 05/01/2020 reader (FREESTYLE ILEANA 14 DAY READER) [facility] flash glucose sensor Use as directed. 6 [...] mg capsule documented as of this encounter Nursing Notes David Rhodes R.N. - 10/11/2019 10:45 AM CST A review of the patients current medications was completed under the context of radiology care priorto contrast/medication administration. EM SUPPORT ANALYST documented in this encounter Plan of Treatment Scheduled Orders Name Type Priority Associated Diagnoses Order S chedule Creatinine, POCT Point of Care STAT STAT for 1 Occurrences Testing-Docked starting 09/29 Device until 0 documented as of this encounter Procedures Procedure Name Priority Date/Time Associated Comments Diagnosis CT ABDOMEN PELVIS RAD - Routine 10/11/2019 11:05 Pancreatitis Resul ts for this WITH IV CONTRAST (most inpatients AM SYSTEM SUPPORT ANALYST Chronic (HCC) proced ure are in and all the results outpatients) section. CREATININE, POCT, Routine 10/11/2019 10:40 Result s for this B AM SYSTEM SUPPORT ANALYST procedure are i n the results section. CREATININE, POCT, Routine 10/11/2019 10:40 Result s for this B AM SYSTEM SUPPORT ANALYST procedure are i n the results section. documented in this encounter Results CT Abdomen Pelvis with IV Contrast (10/11/2019 11:05 AM SYSTEM SUPPORT ANALYST) Anatomical Region Laterality Modality Abdomen, Pelvis, Abdominal RST LOS, N/A Comp uted Tomography, Computed Abdominal ARZ LOS, Abdominal FLA LOS Logan ography Specimen (Source) Anatomical Collection Method Collection Time Re ceived Time Location / / Volume Laterality 10/11/2019 1:13 PM SYSTEM SUPPORT ANALYST Impressions 10/11/2019 1:24 PM SYSTEM SUPPORT ANALYST No significant change from the most recent prior study; chronic changes of pancreatitis. Narrative 10/11/2019 1:24 PM SYSTEM SUPPORT ANALYST EXAM: ??CT ABDOMEN PELVIS WITH IV CONTRAST COMPARISON: ??06/30/2019, 08/19/2018 FINDINGS: ?? Chronic changes of pancreatitis with ext ensive atrophy of the pancreatic parenchyma, ectasia of the common bile d uct, and extensive parenchymal calcification are unchanged from 019. Large (23 mm) calculus appears to be in the main pancreatic duct in the pancreatic head on series 6 image 58. Nothing to suggest acute pancreatitis. No solid mass lesion or pseudocyst or ot her new finding. Splenic vein remains patent. No evidence of arterial pseudoaneurysm o r similar complication. 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 Liver, gallbladder, and adrenal glands a re stable or negative. Stable benign-appearing cysts in both dneys. Mitral annular calcification. Procedure Note Alirio Parikh M.D. - 10/11/2019Forma tting of this note might be different from the original. EXAM: CT ABDOMEN PELVIS WITH IV CONTRAST COMPARISON: 06/30/2019, 08/19/2018 FINDINGS: Chronic changes of pancreatitis with ext ensive atrophy of the pancreatic parenchyma, ectasia of the common bile d uct, and extensive parenchymal calcification are unchanged from 019. Large (23 mm) calculus appears to be in the main pancreatic duct in the pancreatic head on series 6 image 58. Nothing to suggest acute pancreatitis. No solid mass lesion or pseudocyst or ot her new finding. Splenic vein remains patent. No evidence of arterial pseudoaneurysm o r similar complication. 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 Liver, gallbladder, and adrenal glands a re stable or negative. Stable benign-appearing cysts in both dneys. Mitral annular calcification. IMPRESSION: No significant change from the most rece nt prior study; chronic changes of pancreatitis. Emil Zurita M.D. IMG CT PROCEDURES Creatinine, POCT (10/11/2019 10:40 AM SYSTEM SUPPORT ANALYST) athologist Signature Creatinine, 1.2 0.7 - 1.4 10/11/2019 PCDT POCT, B mg/dL 10:44 AM SYSTEM SUPPORT ANALYST Comment: ----ADDITIONAL INFORMATION---- Performed at the Point of Care Specimen Anatomical Collection Method Collection Time Receive d Time (Source) Location / / Volume Laterality Blood 10/11/2019 10:40 10/11/2019 AM SYSTEM SUPPORT ANALYST 10:44 AM SYSTEM SUPPORT ANALYST Unknown Provider LAB POCT ORDERABLES - DEVICE Performing Organization Address City/State/ZIP Code Phon e Number POC BIM PERFORMING [address] [place] [address] LABS PCDT [facility] [place], [place] [id number] [place] [address] (ABNORMAL) Creatinine, POCT (10/11/2019 10:40 AM SYSTEM SUPPORT ANALYST) P athologist Signature eGFR-Black/Afri 67 >=60 10/11/2019 PCDT can [place], mL/min/BSA 10:44 AM SYSTEM SUPPORT ANALYST POCT Comment: ----ADDITIONAL INFORMATION---- Estimated GFR calculated using the 2009 CKD_EPI creatinine equation. eGFR Non-Black/ 58 (L) >=60 mL/min/BSA 10/11/2019 10:44 AM SYSTEM SUPPORT ANALYST PCDT [place], POCT Comment: ----ADDITIONAL INFORMATION---- Estimated GFR calculated using the 2009 CKD_EPI creatinine equation. Specimen Anatomical Collection Method Collection Time Receive d Time (Source) Location / / Volume Laterality Blood 10/11/2019 10:40 10/11/2019 AM SYSTEM SUPPORT ANALYST 10:44 AM SYSTEM SUPPORT ANALYST Unknown Provider LAB POCT ORDERABLES - DEVICE Performing Organization Address City/State/ZIP Code Phon e Number POC BIM PERFORMING [address] [place] [address] LABS PCDT [facility] [place] [address] [place] POC [address] documented in this encounter Visit Diagnoses Diagnosis Pancreatitis Chronic (HCC) documented in this encounter Administered Medications Inactive Administered Medications - up to 3 most recent administrations Medication Order MAR Action Action Date Dose Rate Site iohexol 300 mg iodine/mL solution Given 10/11/2019 10:56 AM SYSTEM SUPPORT ANALYST 140 mL 1-200 mL (OMNIPAQUE) 1-200 mL, intravenous, Once in imaging, contrast, Starting on Fri10/11/19 at 1022, For 1 dose, Imaging Protocol Orders, Dose per Radiant Medication Guidelines sodium chloride (PF) 0.9 % injection 1-1 00 mL Given 10/11/2019 10:56 AM SYSTEM SUPPORT ANALYST 50 mL 1-100 mL, intravenous, Once, On Fri10/11/19 at 1030, For 1 dose, Imaging Protocol Orders documented in this encounter Additional Health Concerns Assessment Noted Time PHQ-9 Depression Total Score: 18 04/28/2018 11:27 AM C DT documented as of this encounter Care Teams Validation Engineer Relationship Specialty Start Date End Date Ewa Alejandro M.D. PCP - General 03/13/17 01/09/20 [address] [place] [phone] documented as of this encounter
--- OUTSIDE RECORDS SUMMARY | 2022-05-21 11:31 | XMS_ITS | Encounter Summary ---
:1945 Author Organization [facility] Address [address] [place] [id number] Care Team Providers Name Role Phone Ewa Alejandro M.D. Primary Care Provider [phone] Reason for Referral Specialty Diagnoses / Procedures Referred By Contact Refer red To Contact Debbie Marquis M.D. [address] [phone] Referral ID Status Reason Start Date Expiration Date Visits Requ ested Visits Authorized RESS MACHINE OPERATOR Reason for Visit Outpatient (Routine) - Closed Specialty Diagnoses / Procedures Referred By Contact Refer red To Contact Endocrinology Diagnoses Diabetes Mellitus Type 2 With Diabetic Neuropathy (HCC) Keisha Lopez APRN, [facility] M.S.N. [address] [place] [phone] Referral ID Status Reason Start Date Expiration Date Visits Requ ested Visits Authorized [id number] Closed 10/11/2019 10/10/2020 1 1 Encounter Details Date Type Department Care Team Description 10/20/2019 Comprehensive Visit Division of Josselin Lopez APRN, C.N.P., M.S.N. [address] [place] [phone] 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) (Primary Dx); Endocrinology in Debbie Marquis M.D. Hyperlipidemia; [place], Pancreatitis Ch licolidya Recurrent (HCC); [place] Stroke Cerebrovascular Accid ent Personal History [address] [place] [phone] Social History Tobacco Use Types Packs/Day Years [...] do you attend mandaeism or Never 2021 moravian services? Do you [...] have completed or the highest Martin, MEd, STORY READER, CAYDEN) degree you have received? Sex Assigned at Date Recorded Male 05/21/2018 2:34 PM CDT documented as of this encounter Patient Instructions Patient Debbie Reagan M.D. - 10/20/2019 2:45 PM CST 1. Lantus 30 units every night 2. NovoLog 10 units with each meal 3. Please check BS before each meal and at bedtime. Goal blood sugar between 100-150. 4. broomcorn scraper visit. 4. Office visit in 3 months. INSULIN DOSE Insulin Breakfast Lunch Supper Bedtime Lantus - - - 30 NovoLog 10 - 10 - TREATMENT GOALS Pre-breakfast 100 to 140 mg/dl Pre-lunch 100 to 140 mg/dl Pre-supper 100 to 140 mg/dl Bedtime 100 to 140 mg/dl 3:00 AM 100 to 140 mg/dl MEALTIME CORRECTION Glucose Level Breakfast Lunch Supper Less than 79 -2 -2 -2 80-89 -1 -1 -1 90-99 -0 -0 -0 100-140 0 0 0 141 to 180 +1 +1 +1 181 to 240 +2 +2 +2 241 to High +3 +3 +3 Please use this correction scales to bring your blood sugars into range. These should be used at mealtime only. HYPOGLYCEMIA RULES For hypoglycemia (less than 60), please treat the low blood sugar first. When blood sugar is greaterthan 80, decrease your mealtime insulin based on the table. RESS MACHINE OPERATOR documented in this encounter Progress Notes Debbie Marquis M.D. - 10/20/2019 2:45 PM CST [facility] Endocrinology, Diabetes, Metabolism and Nutrition Metabolic Clinic Date of Visit: 10/20/2019 Supervising peoplesoft consultant: Dr. Garcia Chief Complaint: Type 2 diabetes mellitus History of Present Illness Jonnathan Costa is a 74-year-old man who presents for evaluation of type 2 diabetes mellitus. He has a background of idiopathic, chronic calcific pancreatitis with exocrine insufficiency, hypertension, hyperlipidemia, and Agent [place] exposure. He was diagnosed with type 2 diabetes mellitus in the . He has been on insulin therapy for morethan 10 years. He takes variable amounts of insulin per day, including Lantus 20-40 units at bedtimedepending on blood sugar reading and how much he ate that day; NovoLog for correction several times a day; and metformin 1000 mg twice daily. He will frequently correct for hyperglycemia at bedtime. Previous therapies tried have included: Victoza, which he used for approximately one year before being discontinuing due to lack of benefit. He measures his blood sugars intermittently, not always before he eats. Fasting blood sugars are typically in the 200-300 range. Denies any recent episodes of low blood sugars, but has occasionally hadlow blood sugar symptoms overnight in the past. A1c on 10/11/2019 was 10.2%, previously 8.4% in October 2018. He reports his diet could be better. He has exocrine pancreatic insufficiency, and is on enzyme replacement. Current BMI 30.39. DIABETES COMPLICATIONS - Macrovascular: He has history of chronic lacunar infarcts. No known history of coronary artery disease or peripheral vascular disease. - Microvascular: Last eye exam was more than a year ago. Creatinine 1.2 with estimated GFR 58. Urinealbumin creatinine ratio in March 2018 was elevated to 461. Endorses intermittent symptoms of numbness and tingling in his lower extremities. COMORBIDITIES - Hypertension: Blood pressure 134/66 on chlorthalidone 25 mg daily, losartan 100 mg daily, and diltiazem 120 mg daily. - Hyperlipidemia: He has history of triglyceridemia, up to 770 in 2017. Lipid panel in 2018 showed total cholesterol 193, HDL 33, and triglycerides 402. He is currently on a statin. He was previously on gemfibrozil, which was discontinued 2-3 years ago. Lab Results Component Value Date HGBA1C 10.2 (H) 10/11/2019 CREATININE 1.2 10/11/2019 ALBCREARATIO 461 (H) 04/28/2018 CHOL 193 04/28/2018 TRIG 402 (H) 04/28/2018 HDL 33 (L) 04/28/2018 LDLCALC CANCELED 04/28/2018 TSH 5.1 (H) 07/02/2018 ALT 17 02/16/2018 Current Outpatient Medications Medication Sig Dispense Refill ??? albuterol (for_ACCUNEB) 2.5 mg /3 mL [...] by mouth daily. 90 tablet 3 ??? clopidogrel (PLAVIX) 75 mg tablet Take 1 tablet by mouth daily. ??? dilTIAZem CD (CARDIZEM CD/CARTIA XT) 120 mg 24 hr capsule Take 1 capsule (120 mg total) by mouthdaily. 30 capsule 11 ??? escitalopram (LEXAPRO) 10 mg tablet Take 1 tablet (10 mg total) by mouth daily. 30 tablet 11 ??? flash glucose scanning reader (StarGreetzSTYLE ILEANA 14 DAY READER) misc Use as directed (Patient not taking: Reported on 10/15/2019 ) 1 each 0 ??? flash glucose sensor (FREESTYLE ILEANA 14 DAY SENSOR) kit Use as directed. (Patient not taking: Reported on 10/15/2019 ) 6 kit 3 ??? insulin aspart U-100 (NovoLOG FlexPen) 100 unit/mL injection Inject 0-35 Units under the skin asneeded (up to 6/d). ??? insulin glargine (LANTUS) 100 unit/mL injection Inject 44 Units under the skin at bedtime. ??? insulin NPH and regular human (HumuLIN 70/30 U-100 KwikPen) 100 unit/mL (70- 30) injection LW Addl Instr:Indicated for: Diabetes ??? mvqlrf-iytetecs-yvpepsm (CREON) 6,000-19,000-30,[address] capsule Take 2 capsules by mouthas directed. 2 capsules with meals and 1 with snacks (Patient taking differently: Take 2 capsules bymouth as directed. 3 capsules with meals and 2 with snacks ) 240 capsule 3 ??? lisinopril (PRINIVIL,ZESTRIL) 10 mg tablet Take 1 tablet by mouth. ??? LORazepam (ATIVAN) 0.5 mg tablet Take 1 tablet (0.5 mg total) by mouth at bedtime as needed for anxiety for up to 15 days. (Patient not taking: Reported on 01/26/2019 ) 15 tablet 0 ??? losartan (for_COZAAR) 100 mg tablet Take [...] daily ??? SYRINGE-NEEDLE,INSULIN,0.5 ML (INSULIN SYRINGE MISC) No current facility-administered medications for this visit. Social History Tobacco Use ??? Smoking status: Former Smoker Last attempt to quit: 1980 Years since quittin.0 ??? Smokeless tobacco: Never Used Substance Use Topics ??? Alcohol use: No Frequency: Monthly or less Drinks per session: 1 or 2 Binge frequency: Never Past Medical History: Diagnosis Date ??? Apnea Sleep Obstructive 06/18/2011 intolerant to CPAP therapy ??? Asthma (HCC) 10/16/2009 [facility], but probably some degree of COPD. ??? Depression Anxiety 11/18/2006 ??? Diabetes Mellitus Type 2 With Diabetic Neuropathy (HCC) 11/18/2006 ??? Diverticulosis Colon 02/16/2018 ??? Dysfunction Erectile 09/23/2007 ??? Hernia Umbilical 05/24/2009 ??? Hernia Ventral 06/29/2009 ??? Hypercholesterolemia 09/23/2007 ??? Hyperplasia Prostate Benign Localized Without Obstruction 11/18/2006 ??? Hypertension Essential Primary 09/23/2007 ??? 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 ??? Polyp Colon Adenomatous 07/03/2009 ??? Polyp Colon Hyperplastic 07/03/2009 ??? Rhinitis Chronic 12/31/2010 ??? Smoking Tobacco Use Personal History 1980 Quit in 1979 ??? Stroke (HCC) 09/17/2017 Chronic lacunar infarcts of right cerebellum and hussein as far MRI of head on 09/17/2017 Past Surgical History: Procedure Laterality Date ??? COLONOSCOPY 08/10/2013 Repeat in [address] Hamm ??? COLONOSCOPY 07/03/2009 ??? COLONOSCOPY 11/2006 ??? CYSTOSCOPY 05/22/2016 Cystoscopy with removal of 2.5 cm tumor on the right bladder wall on 05/22/[address] Bernal. ??? EXTRACTION CATARACT WITH INSERTION INTRAOCULAR LENS Right 08/2010 ??? EXTRACTION CATARACT WITH INSERTION INTRAOCULAR LENS Left 04/2008 At [facility] ??? LASER OF PROSTATE W/ GREEN LIGHT PVP 08/28/2016 Greenlight photoselective vaporization of the prostate and cystoscopy with bladder biopsy and fulguration of a 2cm area; 08/28/[address] Prasanna Bernal at the [facility]. ??? TONSILLECTOMY ??? VASECTOMY Physical Examination General: Pleasant, in no acute distress. Eyes: No scleral icterus. Lungs: Respirations easy and regular on room air. Abdomen: Soft, nontender, nondistended. Insulin injection sites are satisfactory. No lipodystrophy appreciated. Extremities: No peripheral edema. Impression/Report/Plan #1 Type 2 diabetes mellitus, A1c 10.2% in September 2019 #2 Chronic calcific pancreatitis with exocrine insufficiency #3 Hypertension #4 Hypertriglyceridemia #5 Lacunar infarct Mr. Costa is a 74-year-old man with 30 year history of type 2 diabetes mellitus complicated by lacunar infarcts and peripheral neuropathy. In addition, he has chronic calcific pancreatitis with exocrine insufficiency. Glycemic control is suboptimal with A1c of 10.2%, likely secondary to variable insulin dosing and extensive atrophy of the pancreatic parenchyma. We reviewed basic principles of multiple daily injection regimen, including purpose of different types of insulin (long versus short-acting). Discussed proactive versus reactive approach to diabetes management. He would benefit from diabetes education and close follow-up. Plan: - He will check his blood sugars before every meal and at bedtime. Goal fasting blood sugar between 100-150 mg per dL. - He will start by taking Lantus 30 units at bedtime and NovoLog 10 units with each meal. In addition, he will use NovoLog on sliding scale basis if blood sugar is high before the meal. Sliding scale is as outlined below. Discussed these doses will likely need to be up titrate over time for optimal control. - broomcorn scraper visit to review general Diabetes Education and principles of insulin dose adjustment. He will engage his in diabetes management for support. - Return Endocrinology office visit in 3 months with A1c beforehand. He may benefit from simplifyinghis medication regimen by stopping metformin. - We will add lipid panel and C-peptide (to assess endogenous insulin production) to the blood he had drawn this morning. If triglycerides are severely elevated, he would benefit from addition of fenofibrate to his statin. Triglyceride level should also decrease with improved glycemic control. Case was reviewed with Dr. Garcia. This was a 60 minute visit with more than 50% spend in counseling and coordination of care. INSULIN DOSE Insulin Breakfast Lunch Supper Bedtime Lantus - - - 30 NovoLog 10 10 10 - TREATMENT GOALS Pre-breakfast 100 to 140 mg/dl Pre-lunch 100 to 140 mg/dl Pre-supper 100 to 140 mg/dl Bedtime 100 to 140 mg/dl 3:00 AM 100 to 140 mg/dl MEALTIME CORRECTION Glucose Level Breakfast Lunch Supper Less than 79 -2 -2 -2 80-89 -1 -1 -1 90-99 -0 -0 -0 100-140 0 0 0 141 to 180 +1 +1 +1 181 to 240 +2 +2 +2 241 to High +3 +3 +3 Please use this correction scales to bring your blood sugars into range. These should be used at mealtime only. HYPOGLYCEMIA RULES For hypoglycemia (less than 60), please treat the low blood sugar first. When blood sugar is greaterthan 80, decrease your mealtime insulin based on the table. RESS MACHINE OPERATOR Asher Garcia M.D. - 10/20/2019 2:45 PM CST Mr. Costa is a 74-year-old gentleman who is sent for evaluation and management of his diabetes. Patient has had type 2 diabetes since the associated with idiopathic pancreatitis with exocrine insufficiency. Patient has been on insulin therapy for more than 10 years. Presently on a variable doseof Lantus as well as NovoLog. History regarding the patient's diabetes therapeutic interventions and comorbidities are nicely detail by Dr. Marquis's note of today's date which I've reviewed and concur with. Laboratory tests from October 20, 2019 has been reviewed. Serum creatinine 1.2. A1c level 10.2%. LDL94 HDL 35 and triglycerides 214. Vitamin-D level low at 15. Patient requires vitamin-D replacement may benefit by 50,000 international units weekly for 4-6 weeks and than 2000 or more units daily thereafter. C-peptide level is 2. Regarding his diabetes he needs to start monitoring his blood sugars before each meal and bedtime and regular basis with a goal of 100-150 mg/dL. He needs Education in the basal/bolus insulin therapy program so he understands insulin dose adjustment of these insulins according to guidelines. He also needs to understand insulin to carb ratio and follow a dietary program to minimize postprandial blood sugar excursions which is a plant based or Mediterranean diet. Aggressive cardiovascular risk reduction is also important both in lowering LDL cholesterol less than 70 but also addressing triglyceride levels greater than 150 mg/dL. The recent REDUCE-IT study showed that Vascepa appears have unique parole in patients with known coronary disease or diabetes with toa more risk factors and reducing cardiovascular events an additional 25% above what statin administration already delivers. Fibrates have also been shown to reduce cardiovascular events in diabetic patients and would be an alternative choices. All the above recommendations were discussed with the patient in detail and questions were answered.At the opportunity to meet the patient with and address all these recommendations. RESS MACHINE OPERATOR documented in this encounter Plan of Treatment Scheduled Referrals Name Type Priority Associated Diagnoses Order S chedule Nutrition - Outpatient Referral Routine Diabetes Mellitus Exp ected: broomcorn scraper Type 2 With Diabetic visit (clinic) Neuropathy (HCC) (Approxim ate), Expires: 10/20/2020 documented as of this encounter Results C-Peptide (10/20/2019 12:54 PM COMPRESS MACHINE OPERATOR) P athologist Signature C-Peptide, S 2.2 1.1 - 4.4 10/20/2019 DTL ng/mL 5:16 PM COMPRESS MACHINE OPERATOR Specimen Anatomical Collection Method Collection Time Receive d Time (Source) Location / / Volume Laterality Blood (Blood, 10/20/2019 12:54 10/20/2019 4:24 Venous) PM COMPRESS MACHINE OPERATOR PM COMPRESS MACHINE OPERATOR Debbie Marquis M.D. LAB BLOOD ADD-ON Performing Organization Address City/State/ZIP Code Phon e Number [facility] - [address] [place], [place] [address] [facility] [place] [address] [address] (ABNORMAL) Lipid Panel (10/20/2019 12:54 PM COMPRESS MACHINE OPERATOR) P athologist Signature Cholesterol, 172 mg/dL 10/20/2019 DTL Total 5:16 PM COMPRESS MACHINE OPERATOR Comment: ----REFERENCE VALUE---- Desirable: < 200 Borderline high: 200 - 239 High: > or = 240 Triglycerides 214 (H) mg/dL 10/20/2019 5:16 PM COMPRESS MACHINE OPERATOR DTL Comment: ----REFERENCE VALUE---- Normal: <150 Borderline high: 150-199 High: 200-499 Very high: > or =500 Cholesterol, HDL, S 35 (L) >=40 mg/dL 10/20/2019 5:16 PM COMPRESS MACHINE OPERATOR DTL Calculated LDL 94 mg/dL 10/20/2019 5:16 PM COMPRESS MACHINE OPERATOR DT L Comment: ----REFERENCE VALUE---- Desirable: <100 Above Desirable: 100-129 Borderline high: 130-159 High: 160-189 Very high: > or =190 Cholesterol, Non-HDL, Calculated 137 mg/dL 020 5:16 PM COMPRESS MACHINE OPERATOR DTL Comment: ----REFERENCE VALUE---- Desirable: <130 Above Desirable: 130-159 Borderline high: 160-189 High: 190-219 Very high: > or =220 Specimen Anatomical Collection Method Collection Time Receive d Time (Source) Location / / Volume Laterality Blood (Blood, 10/20/2019 12:54 10/20/2019 4:24 Venous) PM COMPRESS MACHINE OPERATOR PM COMPRESS MACHINE OPERATOR Debbie Marquis M.D. LAB BLOOD ADD-ON Performing Organization Address City/State/ZIP Code Phon e Number [facility] - [address] [place] [phone] [facility] [place] [address] [facility] documented in this encounter Visit Diagnoses Diagnosis 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) - Primary Hyperlipidemia Pancreatitis Chronic Recurrent (HCC) Stroke Cerebrovascular Accident Personal History documented in this encounter Additional Health Concerns Assessment Noted Time PHQ-9 Depression Total Score: 18 04/28/2018 11:27 AM C DT documented as of this encounter Care Teams Buffing Turner And Counter Relationship Specialty Start Date End Date Ewa Alejandro M.D. PCP - General 6/15/17 [id number] [place] [address] documented as of this encounter
--- OUTSIDE RECORDS SUMMARY | 2022-05-21 11:31 | XMS_ITS | Encounter Summary ---
:1945 Author Organization [facility] Address [address] [place] [address] Care Team Providers Name Role Phone Ewa Alejandro M.D. Primary Care Provider [phone] Encounter Details Date Type Department Care Team Description 10/27/2019 Clinical Communication Department of Family Kirill Torres [facility], Ewa Barclay, Clinic, in [place] [address] [place] [id number] Social History Tobacco Use Types Packs/Day Years [...] do you attend baptism or Never 2021 baptist services? Do you [...] have completed or the highest Martin, MEd, SHEEP HERDER, CAYDEN) degree you have received? Sex Assigned at Date Recorded Male 05/21/2018 2:34 PM CDT documented as of this encounter Miscellaneous Notes Telephone Encounter - Morelia Acuna L.P.N. - 10/28/2019 12:06 PM CST Patient in clinic at scheduling desk- inquiring scheduling for the Pulmonary testing. Patient to have this done at [facility]. Order will be faxed and patient scheduling will contact patient to set this up. UTIVE CHAIRMAN Telephone Encounter - Sugey Guevara, CMauroMMauroAMauro - 10/27/2019 1:47 PM CST SUBJECTIVE CHIEF COMPLAINT / REASON FOR CALL No chief complaint on file. PLAN The following information was provided: No order in for pulmonary in [place] please place that order, patient is aware that once order is placed that [place] will call him to set up that appt Information/Education: patient/caller able to teach back The following references were used: none UTIVE CHAIRMAN Telephone Encounter - Shanon Glover - 10/27/2019 1:07 PM CST Reason for Communication: Patient is calling in and stated that pcp was going to schedule a pulmonary appointment. Patient stated that he would like to talk to a nurse regarding this. Current Can Nursing/Provider leave a detailed message: yes Did the patient refuse triage through Nurse line? (for symptom based concerns): na Action Needed: Please call patient back. Name of Medication (if relevant): na UTIVE CHAIRMAN documented in this encounter Plan of Treatment Not on filedocumented as of this encounter Visit Diagnoses Not on filedocumented in this encounter Additional Health Concerns Assessment Noted Time PHQ-9 Depression Total Score: 18 04/28/2018 11:27 AM C DT documented as of this encounter Care Teams Wellness Specialist Relationship Specialty Start Date End Date Ewa Alejandro M.D. PCP - General 03/13/17 01/09/[address] [phone] documented as of this encounter
--- OUTSIDE RECORDS SUMMARY | 2022-05-21 11:31 | XMS_ITS | Encounter Summary ---
:1945 Author Organization [facility] Address [address] [place] [address] Care Team Providers Name Role Phone Ewa Alejandro M.D. Primary Care Provider [phone] Reason for Visit Outpatient (Routine) - Closed Specialty Diagnoses / Procedures Referred By Contact Refer red To Contact Nutrition Diagnoses Diabetes Mellitus Type 2 With Diabetic Neuropathy (HCC) Debbie Marquis M.D. [facility] [address] [place] [address] Referral ID Status Reason Start Date Expiration Date Visits Requ ested Visits Authorized [id number] Closed 10/21/2019 10/20/2020 1 1 Encounter Details Date Type Department Care Team Description 11/01/2019 Clinical Support Department of Debbie Marquis M.D . Diabetes Mellitus Nutrition in [facility], Alysha Arais R.N., [address] [address] Type 2 With Diabetic Alexia, Neuropathy (HCC ) [place] [address] [place] [phone] Social History Tobacco Use Types Packs/Day Years [...] do you attend gnosticist or Never 2021 orthodoxy services? Do you belong to any clubs or No 10/09/2021 organizations such as gnosticist groups, unions, fraImpulseSave or athletic groups, or school groups? How [...] completed or the highest Martin, MEd, BUSINESS INFO CONSULTANT, CAYDEN) degree you have received? Sex Assigned at Date Recorded Male 05/21/2018 2:34 PM CDT documented as of this encounter Progress Notes Alysha Pompa R.N. - 11/01/2019 3:00 PM CST SUBJECTIVE CHIEF COMPLAINT/REASON FOR VISIT Diabetes Education Type of Visit: Insulin - Follow-up Referred by: Debbie Marquis M.D. HISTORY OF PRESENT ILLNESS OBJECTIVE Pertinent Labs: Lab Results Component Value Date HGBA1C 10.2 (H) 10/11/2019 HGBA1C 8.4 (H) 11/09/2018 ASSESSMENT / PLAN Medication Changes: Yes, Per discussion and review with Dr. Marquis, the patient will increase his NovoLog insulin doses to 11--11-0 with the 100-140 mg/dL correction scale. The patient will increase his Lantus dose 0-0-0-33. The patient will continue his Metformin dose of 2,000 mg daily. Patient Education Provided: Yes, patient education was provided, refer to the patients education record. Diagnosis Plan 1. Diabetes Mellitus Type 2 With Diabetic Neuropathy (HCC) Nutrition office visit (clinic) Patient presents for his diabetes education appointment. Diabetes history: Type 2 DM since 1989, has been on insulin therapy for over 10 years Current insulin: The patient has been consistently taking set doses of NovoLog and has been using the 100-140 mg/dL correction scale. The patient has had to correct with the correction scale every timehe takes NovoLog insulin. The patient has been using a consistent dose of Lantus as well. NovoLog 11-11-11-0 with the 100-140 mg/dL correction scale Lantus 0-0-0-33 Metformin 2,000 mg daily Goal range: 100-150 mg/dL Monitoring/blood sugar: The patient has definitely made improvements in checking his blood glucose readings and has been recording them on paper. The patient was missing a few readings but has overall made improvements. We reviewed that it is best to check blood glucose four hours after eating. The patient does not have his glucometer with him today for download. He has blood glucose results written down but are not associated with a date. Blood Sugar Results: AM Noon PM Bedtime 130 340 243 430 243 348 342 340 243 405 259 353 330 230 408 238 330 373 331 [phone] 287 Nutrition: We had an extensive discussion about the plate method, what foods have carbohydrates in them, eating low carbohydrate snacks between meals, and waiting four hours after eating carbohydrates to test fasting blood sugars. The patient reports that he does not drink sugary beverages. We reviewed that it is best to eliminate snacking on carbohydrates. Diabetes education: We reviewed the rationale for checking blood glucose before meal times and before bedtime. We discussed that when these readings are recorded it is often easier for the patient to review patterns of blood glucose readings and evaluate for insulin dose adjustment. Psychosocial: The patient is having trouble finding consistency in his schedule. He reports that hisbusy schedule is often times a barrier to his diabetes care. Goals: The patient has been checking and recording his blood glucose readings. The patient reports that he does not give himself NovoLog at bedtime or during the night. Greater than 50% of time spent in counseling/coordination of care. Contact information given for anyfuture questions or concerns. Time spent with patient (minutes): 75 Minutes MOTIVE WORKER FOREMAN documented in this encounter Plan of Treatment Not on filedocumented as of this encounter Visit Diagnoses Diagnosis 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) documented in this encounter Additional Health Concerns Assessment Noted Time PHQ-9 Depression Total Score: 18 04/28/2018 11:27 AM C DT documented as of this encounter Care Teams Cashier Ticket Selling Relationship Specialty Start Date End Date Ewa Alejandro M.D. PCP - General 03/13/17 01/09/20 [address], [place] [phone] documented as of this encounter
--- OUTSIDE RECORDS SUMMARY | 2022-05-21 11:31 | XMS_ITS | Encounter Summary ---
:1945 Author Organization [facility] Address [address] [place] [address] Care Team Providers Name Role Phone Ewa Alejandro M.D. Primary Care Provider [phone] Reason for Referral Outpatient (Routine) - Closed Specialty Diagnoses / Procedures Referred By Contact Refer red To Contact Endocrinology Diagnoses Diabetes Mellitus Type 2 With Diabetic Neuropathy (HCC) [facility] M.S.N. [address] [place] [address] Referral ID Status Reason Start Date Expiration Date Visits Requ ested Visits Authorized [id number] Closed 10/11/2019 10/10/2020 1 1 E MILLER HELPER Reason for Visit Outpatient (Routine) - Closed Specialty Diagnoses / Referred By Referred To Cont act Procedures Contact Gastroenterology and Emil Zurita Rocheste [facility] Hepatology [place] [address] [place] [address] Referral ID Status Reason Start Date Expiration Date Visits Requ ested Visits Authorized [id number] Closed 09/15/2018 09/15/2019 1 1 Encounter Details Date Type Department Care Team Description 10/11/2019 Office Visit Division of Keisha Lopez C hronic (HCC) (Primary Dx); Gastroenterology in T, CLINICAL FIELD SPECIALIST, Diabetes Mellitus Type 2 With Diabetic Neuropathy (HCC); [place], [place] C.N.P., M.S.N. Change In Bowel Habit; [address] Exocrine Pancreatic Insufficiency (HCC); [place] [address] [place], [place] Loss Weight Abnormal; [phone] Stone Pancreatic Duct (HCC); [phone] Dilation Pancre atic Duct (HCC) (Work) Social History Tobacco Use Types Packs/Day [...] do you attend adventist or Never 2021 muslim services? Do you [...] have completed or the highest Martin, MEd, PRODUCE PRODUCTION TEAM MEMBER, CAYDEN) degree you have received? Sex Assigned at Date Recorded Male 05/21/2018 2:34 PM CDT documented as of this encounter Progress Notes Keisha Lopez APRN, C.N.P., M.S.N. - 10/11/2019 3:00 PM CST SUBJECTIVE REASON FOR VISIT Follow-up history of idiopathic chronic pancreatitis HISTORY OF PRESENT ILLNESS Mr. Costa is a 74 y.o. 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 He has been diabetic for several decades, but more recently developed evidence of exocrine insufficiency prompting evaluation in 2018. He isan established patient of Dr. Zurita with whom I'm meeting in the pancreas Clinic for the first time today. Mr. Costa states that he was exposed to Agent [place] in 1967 and subsequently developed asthma and shortly after diabetes. In early 2018, he developed new onset nausea, diarrhea, decreased appetite, and unintentional weightloss. He underwent abdominal imaging identifying chronic calcific pancreatitis. He was seen by Dr. Zurita who requested EUS, performed on 08/19/2018. This reported normal appearance of the esophagus,stomach, and duodenum. There was note of calcifications, hyperechoic strands, foci, lobularity, and cysts throughout the pancreatic duct. The pancreatic duct had intraductal stones with an irregular contour in prominent side branches. While there were features of chronic pancreatitis, given the shape in overall morphology of the main pancreatic duct and side branches, the presence of IPMN should be considered. Updated abdominal CT for continued surveillance identifies no significant change. He has chronic calcific pancreatitis with extensive atrophy of the pancreatic parenchyma, ectasia of the common bile duct, and extensive parenchymal calcifications that are unchanged when compared with June. A 23 mm calculus appears to be in the main pancreatic duct with no evidence of acute pancreatitis. No solid masses, pseudocyst, or other new findings. Laboratory evaluation reveals slightly diminished kidney function with GFR of 55. Hemoglobin A1c is elevated at 10.2 with a fasting glucose of 149. He was found to have normal fat soluble vitamins, but elevated fecal fat at 10 g per 24 hours. He was initiated on Creon 6000 units 3 tablets with meals and 1-2 with snacks. Currently, he denies any abdominal pain. He has been taking his Creon and notices significant improvement in his bowel habits. He continues to experience 3 looser stools per day. These are urgent and having incontinence at times. He denies any oily stools, gas, bloating, or episodes of acute pancreatitis. He states that he has decreased appetite and has lost approximately 25 lb in the past year. He'dattributes this to significant depression and little interest in eating that has improved significantly approximately 1 month ago. Over the past month, he has had increased mood and exercises regularlywith increased activity. He denies any abdominal pain. He has a 20 pack-year history of tobacco use,quit at age 28. He denies significant alcohol history and has 3 beers per month. No family history of pancreatic disorders or pancreatic cancer. His personal history of bladder cancer in 2016 for which he has continued to undergo surveillance. He also has a history of asthma for which she has plans to undergo further evaluation through his primary care provider. He is also requesting evaluation through his primary care for further allergy testing as a trigger of his asthma. He denies any allergies to anesthetics or previous problems with anesthesia. He denies any bleeding disorders or use of anticoagulants. He denies any cardiac disease, AGNIESZKA, renal disease, or liver disease. He has active without chest pain or shortness of breath. REVIEW OF SYSTEMS All other systems reviewed and negative unless mentioned in the history of present illness or problem list. OBJECTIVE There were no vitals taken for this visit. PHYSICAL EXAMINATION General: Well-appearing and in no apparent distress. ENT: Anicteric. Extremities: Digits and nails normal. Gait: Examined and normal. Psychiatric: Awake, alert and oriented. Speech is clear. Appropriate affect. ASSESSMENT / PLAN #1 Idiopathic chronic calcific pancreatitis with large intraductal stones and upstream dilation atrophy #2 Uncontrolled diabetes mellitus type 2 with a hemoglobin A1c of 10.2 #3 Exocrine insufficiency, currently taking Creon with continued loose bowel movements #4 Decreased appetite with unintentional weight loss #5 Asthma and allergies, asking primary care provider for referral I met with Mr. Costa in the pancreas Clinic for the first time today. He has previously been followed by Dr. Zurita regarding history of chronic calcific pancreatitis with large intraductal stones and upstream dilation. He is currently without abdominal pain has improved diarrhea with use of pancreatic enzyme replacement. Given that he still has 3, loose stools per day with some urgency and incontinence, we discussed increasing his enzyme replacement. We discussed that these tablet should be taken with all meals and s nacks and taken throughout the meal. He may increase incrementally with the additional 1 tablet withmeals and snacks per week to see if he gains improvement in his bowel habits. We discussed that [place] [address] [place] lipase per meal. [facility] He did not have his fat soluble vitamins checked. I have recommended that he have his vitamins a, E, and be checked by his primary care provider. We reviewed his elevated hemoglobin A1c. I have recommended consultation with endocrinology for further recommendations. Abdominal CT is stable; however, on review of his prior EUS reports, there was possible question of main duct IPMN. Given his persistent unintentional weight loss, worsening diabetes, and decreased appetite despite improvement in his depression and improvement in bowel habits with supplementation withenzyme replacement, I would like to discuss further with Dr. Zurita whether not we would recommendendoscopic ultrasound for further evaluation of his pancreas to assess for features of main duct IPMN and rule out underlying malignancy. Alternatively, we could proceed with optimizing his diabetes management and enzyme replacement to see if his weight stabilizes or improves. If not, proceeding with EUS at that time. We discussed benefits of avoiding tobacco and alcohol and increasing his dietary and supplemental intake of antioxidants. Multiple questions answered. He verbalized understanding of this information and is in agreement. I've encouraged him to contact me with any further questions or concerns. I personally spent over half of a total 40 minutes in counseling and discussion with the patient andcoordination of care as described above. E MILLER HELPER documented in this encounter Plan of Treatment Scheduled Referrals Name Type Priority Associated Order Schedule Diagnoses Endocrinology - Outpatient Referral Routine Diabetes Mellitus Expected: Diabetes consult Type 2 With 10/11/2019 (clinic) Diabetic Neuropathy (Approxi mate), ([facility]) Expires: 10/11/2022 documented as of this encounter Visit Diagnoses Diagnosis Pancreatitis Chronic (HCC) - Primary 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) Change In Bowel Habit Exocrine Pancreatic Insufficiency Loss Weight Abnormal Stone Pancreatic Duct Dilation Pancreatic Duct documented in this encounter Additional Health Concerns Assessment Noted Time PHQ-9 Depression Total Score: 18 04/28/2018 11:27 AM C DT documented as of this encounter Care Teams Twill Cutter Relationship Specialty Start Date End Date Ewa Alejandro M.D. PCP - General 03/13/17 01/09/20 [address] [phone] documented as of this encounter
--- OUTSIDE RECORDS SUMMARY | 2022-05-21 11:31 | XMS_ITS | Encounter Summary ---
:1945 Author Organization [facility] Address [address] [place] [address] Care Team Providers Name Role Phone Ewa Alejandro M.D. Primary Care Provider Encounter Details Date Type Department Care Team Description 11/16/2019 Hospital Encounter Department of Radiology Clifford Bal Cough Chronic in [facility] Ewa mullen M.D. [address] [place] [address] [address] [place] [address] [place], [place] [phone] Social History Tobacco Use Types Packs/Day [...] do you attend muslim or Never 2021 worship services? Do you [...] have completed or the highest Martin, MEd, FUR STORAGE CLERK, CAYDEN) degree you have received? Sex [...] SYRINGE-NEEDLE,INSULIN, 0 0.5 ML (INSULIN SYRINGE MISC) hhbjdm-[id number]-teeghah Take 2 capsules by 240 capsule 3 [...] 05/01/2020 reader (FREESTYLE ILEANA 14 DAY READER) [facility] flash glucose sensor Use as directed. 6 [...] CHEST AP OR PA RAD - Routine 11/16/2019 8:25 Cough Chronic Resul ts for this AND LATERAL 2 (most inpatients AM GLASS BLOWER procedure are in VIEWS and all the results outpatients) section. documented in this encounter Results DX Chest AP or PA and Lateral 2 Views (11/16/2019 8:25 AM GLASS BLOWER) Anatomical Region Laterality Modality Chest, Thoracic RST LOS, Thoracic ARZ LOS, Thoracic N/A Digital Radiography FLA LOS Specimen (Source) Anatomical Collection Method Collection Time Re ceived Time Location / / Volume Laterality 11/16/2019 8:31 AM GLASS BLOWER Impressions 11/16/2019 8:32 AM GLASS BLOWER No acute radiographic abnormality. Narrative 11/16/2019 8:32 AM GLASS BLOWER EXAM: DX CHEST AP OR PA AND LATERAL 2 VIEWS COMPARISON: 05/16/2016 FINDINGS: Cardiomediastinal silhouette a nd pulmonary vasculature are within normal limits. Aortic calcifications. Mi ld bibasilar scarring/atelectasis. Hyperinflated lungs. No acute consolidat ion, pleural effusion, or pneumothorax area no acute finding in the bones or up per abdomen. Spondylosis. Procedure Note Russel Grayson M.D. - 11/16/2019Formattin g of this note might be different from the original. EXAM: DX CHEST AP OR PA AND LATERAL 2 EWS COMPARISON: 05/16/2016 FINDINGS: Cardiomediastinal silhouette a nd pulmonary vasculature are within normal limits. Aortic calcifications. Mi ld bibasilar scarring/atelectasis. Hyperinflated lungs. No acute consolidat ion, pleural effusion, or pneumothorax area no acute finding in the bones or up per abdomen. Spondylosis. IMPRESSION: No acute radiographic abnormality. Ewa Alejandro M.D. IMG DIAGNOSTIC IMAGING PROCEDURES documented in this encounter Visit Diagnoses Diagnosis Chronic Cough documented in this encounter Additional Health Concerns Assessment Noted Time PHQ-9 Depression Total Score: 18 04/28/2018 11:27 AM C DT documented as of this encounter Care Teams Door Patcher Relationship Specialty Start Date End Date Ewa Alejandro M.D. PCP - General 03/13/17 01/09/[address] [phone] documented as of this encounter
--- OUTSIDE RECORDS SUMMARY | 2022-05-21 11:31 | XMS_ITS | Encounter Summary ---
:1945 Author Organization [facility] Address [address] [place] [address] Care Team Providers Name Role Phone Ewa Alejandro M.D. Primary Care Provider Reason for Referral Outpatient (Routine) - Closed Specialty Diagnoses / Procedures Referred By Contact Refer red To Contact Pulmonary Medicine Diagnoses Chronic Cough Flavia Alexia [facility] [place] [address], [place] [address] Referral ID Status Reason Start Date Expiration Date Visits Requ ested Visits Authorized [id number] Closed 10/27/2019 10/26/[address] Encounter Details Date Type Department Care Team Description 10/27/2019 Orders Only Department of [facility] Philip Barnard Chronic (Primary Medicine, Ewa Barclay, Martin) Clinic, in [place] [address] [place] [phone] Social History Tobacco Use Types Packs/Day Years [...] do you attend judaism or Never 2021 restorationist services? Do you [...] have completed or the highest Martin, MEd, AREA SAFETY MANAGER, CAYDEN) degree you have received? Sex Assigned at Date Recorded Male 05/21/2018 2:34 PM CDT documented as of this encounter Plan of Treatment Scheduled Referrals Name Type Priority Associated Diagnoses Order S [facility] Pulmonary Medicine Outpatient Referral Routine Cough Chronic E xpected: - Cough consult 10/28/2019, (clinic) Expires: 10/27/2022 documented as of this encounter Results DX Chest AP or PA and Lateral 2 Views (11/16/2019 8:25 AM ROLLWAY MAN) Anatomical Region Laterality Modality Chest, Thoracic RST LOS, Thoracic ARZ LOS, Thoracic N/A Digital Radiography FLA LOS Specimen (Source) Anatomical Collection Method Collection Time Re ceived Time Location / / Volume Laterality 11/16/2019 8:31 AM ROLLWAY MAN Impressions 11/16/2019 8:32 AM ROLLWAY MAN No acute radiographic abnormality. Narrative 11/16/2019 8:32 AM ROLLWAY MAN EXAM: DX CHEST AP OR PA AND [...] this encounter Visit Diagnoses Diagnosis Chronic Cough - Primary Chronic Cough documented in this encounter Additional Health Concerns Assessment Noted Time PHQ-9 Depression Total Score: 18 04/28/2018 11:27 AM C DT documented as of this encounter Care Teams Basic Acoustic Analyst Relationship Specialty Start Date End Date Ewa Alejandro M.D. PCP - General 03/13/17 01/09/[address] [phone] documented as of this encounter
--- OUTSIDE RECORDS SUMMARY | 2022-05-21 11:31 | XMS_ITS | Encounter Summary ---
:1945 Author Organization [facility] Address [address] [place] [address] Care Team Providers Name Role Phone Ewa Alejandro M.D. Primary Care Provider Encounter Details Date Type Department Care Team Description 08/30/2019 Clinical Communication Department of Family Kirill Torres [facility], Ewa Barclay, Clinic, in [place] [address] [place] [phone] Social History Tobacco Use Types Packs/Day Years [...] do you attend caodaism or Never 2021 sabianist services? Do you [...] have completed or the highest Martin, MEd, HEALTH OUTCOMES LIAISON, CAYDEN) degree you have received? Sex Assigned at Date Recorded Male 05/21/2018 2:34 PM CDT documented as of this encounter Miscellaneous Notes Telephone Encounter - Estelle Plunkett - 08/30/2019 10:35 AM CST Reason for Communication: Asthma is acting up would like to speak to nurse about it and see what would like to do. Current Can Nursing/Provider leave a detailed message: Did the patient refuse triage through Nurse line? (for symptom based concerns): Action Needed: Please call patient back Name of Medication (if relevant): RIST documented in this encounter Plan of Treatment Not on filedocumented as of this encounter Visit Diagnoses Not on filedocumented in this encounter Additional Health Concerns Assessment Noted Time PHQ-9 Depression Total Score: 18 04/28/2018 11:27 AM C DT documented as of this encounter Care Teams Director Medical Affairs Relationship Specialty Start Date End Date Ewa Alejandro M.D. PCP - General 03/13/17 01/09/20 [address], [place] [address] documented as of this encounter
--- OUTSIDE RECORDS SUMMARY | 2022-05-21 11:31 | XMS_ITS | Encounter Summary ---
:1945 Author Organization [facility] Address [address] [place] [address] Care Team Providers Name Role Phone Ewa Alejandro M.D. Primary Care Provider [phone] Reason for Visit Reason Comments Pancreas Results DEXA scan, glucose, CBC Encounter Details Date Type Department Care Team Description 11/04/2019 Clinical Division of Keisha Lopez Pancreas; Resu lts Communication Gastroenterology in , STUDENT AFFAIRS VICE PRESIDENT, (DEXA s can, [place], [place] C.N.P., M.S.N. glucose, CBC ) [address] [place] [address] [address] [place] [phone] Social History Tobacco Use Types Packs/Day Years [...] do you attend orthodox or Never 2021 judaism services? Do you [...] have completed or the highest Martin, MEd, AUTOMATION AND CONTROLS INSTRUCTOR, CAYDEN) degree you have received? Sex Assigned at Date Recorded Male 05/21/2018 2:34 PM CDT documented as of this encounter Miscellaneous Notes Telephone Encounter - Daphney Batista, RMauroN. 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 Glucose elevated to 181. He has since met with endocrinology to discuss.??Please let him know that he has been mildly anemic since 2018. He has had colonoscopy and EGD showing no evidence of bleeding. ??May discuss this with primary provider to determine if ferritin, B12, folate should be drawn. Patient voiced understanding. Questions answered. Patient stated he has already seen an Home Energy Rater and has plans to follow with them. Additionally he will follow up with PCP regarding anemia concerns. 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 PCP - General 03/13/17 01/09/[address], [place] [address] documented as of this encounter
--- OUTSIDE RECORDS SUMMARY | 2022-05-21 11:31 | XMS_ITS | Encounter Summary ---
:1945 Author Organization [facility] Address [address] [place] [address] Care Team Providers Name Role Phone Ewa Alejandro M.D. Primary Care Provider [phone] Encounter Details Date Type Department Care Team Description 10/28/2019 Clinical Communication Department of Family Kirill Torres [facility], Ewa Barclay, Clinic, in [place] [address] [place] [phone] Social History Tobacco Use Types Packs/Day Years [...] do you attend muslim or Never 2021 temple services? Do you [...] completed or the highest Martin, MEd, FIELD RADIO TECHNICIAN, CAYDEN) degree you have received? Sex Assigned at Date Recorded Male 05/21/2018 2:34 PM CDT documented as of this encounter Plan of Treatment Not on filedocumented as of this encounter Visit Diagnoses Not on filedocumented in this encounter Additional Health Concerns Assessment Noted Time PHQ-9 Depression Total Score: 18 04/28/2018 11:27 AM C DT documented as of this encounter Care Teams Interstate Bus Driver Relationship Specialty Start Date End Date Ewa Alejandro M.D. PCP - General 03/13/17 01/09/[address] [phone] documented as of this encounter
--- OUTSIDE RECORDS SUMMARY | 2022-05-21 11:31 | XMS_ITS | Encounter Summary ---
:1945 Author Organization [facility] Address 200 [place] [address] Care Team Providers Name Role Phone Ewa Alejandro M.D. Primary Care Provider [phone] Reason for Referral Outpatient (Routine) - Closed Specialty Diagnoses / Procedures Referred By Contact Refer red To Contact Diagnoses Pancreatitis Chronic (HCC) Exocrine Pancreatic Insufficiency Keisha Bailey APRN, [facility] Procedures ECG 12 Lead C.N.P., M.S.N. 200 [place] [address] Referral ID Status Reason Start Date Expiration Date Visits Requ ested Visits Authorized [id number] Closed 10/19/2019 10/18/2020 1 1 utpatient (Routine) - Closed Specialty Diagnoses / Procedures Referred By Contact Refer red To Contact Diagnoses Pancreatitis Chronic (HCC) Exocrine Pancreatic Insufficiency Deficiency Vitamin D Keisha Bailey APRN, [facility] Procedures BMD Bone Density Spine Hips C.N.P., M.S.N. [address] [place] [phone] Referral ID Status Reason Start Date Expiration Date Visits Requ ested Visits Authorized [id number] Closed 10/19/2019 10/18/2020 1 1 RN Encounter Details Date Type Department Care Team Description 10/19/2019 Clinical Communication Division of Keisha Bailey Gastroenterology in [place], [place] Milana, M.S.N. 200 [facility] 200 [place] [address] [place], [place] [phone] Social History Tobacco Use Types Packs/Day Years [...] do you attend sikhism or Never 2021 advent services? Do you [...] have completed or the highest Martin, MEd, PIPELINES LABORER, CAYDEN) degree you have received? Sex Assigned at Date Recorded Male 05/21/2018 2:34 PM CDT documented as of this encounter Miscellaneous Notes Addendum Note - Keisha Bailey APRN, C.N.P., M.S.N. - 10/19/2019 11:13 AM LPN RN Addended by: KEISHA BAILEY on: 10/19/2019 11:13 AM Modules accepted: Orders RN Telephone Encounter - Keisha Bailey APRN, C.N.P., M.S.N. - 10/19/2019 11:04 AM CST I spoke with Mr. Costa on the phone after discussing with Dr. Zurita. Given his unintentional weight loss, fatigue, worsening diabetes, and worsening exocrine insufficiency, Dr. Zurita has recommended proceeding with EUS at this time to rule out any evidence of underlying malignancy. On review of Dr. Albarran's prior EUS report, we'll also asked to assess for any evidenceof main duct IPMN. Mr. Costa attributes many of his symptoms to his recent depression. Mr. Costa is currently on Plavix. I have encouraged him to discuss with his ordering provider as he will need hever off of this for the week prior to his EUS. We reviewed the significance of the intraductal pancreatic stones including that ductal obstruction can contribute to worsening diabetes control and exocrine insufficiency. We discussed possibility of proceeding with lithotripsy for stone removal. We discussed the risks and benefits of doing so, and Mr. Costa is uninterested at this time. We will not proceed with lithotripsy at this time as he is currently asymptomatic, without episodes of acute pancreatitis, has insulin-dependent diabetes, and is on enzyme replacement. This can be reconsidered in the future should he developed pain attributable to these stones or acute pancreatitis. Laboratory evaluation has revealed deficiency of vitamin-D. I have recommended supplementation and recheck in 6 months. Given his chronic pancreatitis and vitamin-D deficiency, I have also recommended proceeding with DEXA scan. He is scheduled to meet with endocrinology later this week for recommendations regarding diabetes management. Should there be evidence of osteoporosis, we would also appreciate their input as to treatment recommendations. Mr. Costa reports that he has increased his enzyme replacement and notice firm bowel movements. We discussed that he may also increase his fluids and fiber to prevent constipation should he have improvement in his steatorrhea with increased enzymes. We discussed the vitamin-D deficiency also supportsthat he is under dosing his enzyme replacement. Multiple questions answered. He verbalized understanding of this information and is in agreement. I have encouraged him to contact me with any further questions or concerns. RN documented in this encounter Plan of Treatment Not on filedocumented as of this encounter Results ECG 12 Lead (10/20/2019 1:23 PM LPN RN) P athologist Signature Ventricular Rate 73 BPM MUSE ECG/Min AL Interval 142 ms MUSE QRSD Interval 110 ms MUSE QT Interval 416 ms MUSE QTC Interval 459 ms MUSE P Myrtle 35 degrees MUSE R Myrtle -40 degrees MUSE T Wave Myrtle 48 degrees MUSE Specimen Anatomical Collection Method Collection Time Receive d Time (Source) Location / / Volume Laterality 10/20/2019 1:23 PM 0 2:03 LPN RN PM LPN RN Impressions MUSE - 10/20/2019 2:03 PM LPN RN Normal sinus rhythm Left axis deviation Nonspecific ST abnormality When compared with ECG of 16-MAY-2016 10 :16, No significant change was found Reviewed by SEAN Hoang Narrative This result has an attachment that is no t available. Procedure Note Loco Burgos M.B.B.S. - 020 IMPRESSION: Normal sinus rhythm Left axis deviation Nonspecific ST abnormality When compared with ECG of 16-MAY-2016 10 :16, No significant change was found Reviewed by SEAN Hoang Brigette Mir APRNNKerry, M.S.N. ECG ORDERABLES Performing Organization Address City/State/ZIP Code Phon e Number MUSE MUSE NA (ABNORMAL) Glucose, Fasting (10/20/2019 12:58 PM LPN RN) athologist Signature Glucose, P 181 (H) 70 - 100 10/20/2019 DTL mg/dL 2:22 PM LPN RN Last Intake 5 hr 10/20/2019 DTL 1:18 PM LPN RN Specimen Anatomical Collection Method Collection Time Receive d Time (Source) Location / / Volume Laterality Blood (Blood, 10/20/2019 12:58 10/20/2019 1:18 Venous) PM LPN RN PM LPN RN Brigette Mir APRNNJolene., M.S.N. LAB BLOOD NON ADD- ON Performing Organization Address City/[facility]/ZIP [facility] Phon e Number [facility] - [address] Sodium (10/20/2019 12:58 PM LPN RN) athologist Signature Sodium, S 141 135 - 145 10/20/2019 2:20 DTL mmol/L PM LPN RN Specimen Anatomical Collection Method Collection Time Receive d Time (Source) Location / / Volume Laterality Blood (Blood, 10/20/2019 12:58 10/20/2019 1:18 Venous) PM LPN RN PM LPN RN Brigette Mir APRNNJolene., M.S.N. LAB BLOOD ADD-ON Performing Organization Address City/[facility]/ZIP Code Phon e Number [facility] - [address] Potassium (10/20/2019 12:58 PM LPN RN) athologist Signature Potassium, S 4.2 3.6 - 5.2 10/20/2019 DTL mmol/L 2:20 PM LPN RN Specimen Anatomical Collection Method Collection Time Receive d Time (Source) Location / / Volume Laterality Blood (Blood, 10/20/2019 12:58 10/20/2019 1:18 Venous) PM LPN RN PM LPN RN Anna Marie Mir APRN.N.P., M.S.N. LAB BLOOD ADD-ON Performing Organization Address City/State/ZIP Code Phon e Number [facility] - [address] [place] [address] Laboratories-[facility] 200 [facility] Prothrombin Time (PT) (10/20/2019 12:57 PM LPN RN) P athologist Signature Prothrombin 11.4 9.4 - 12.5 10/20/2019 DTL Time, P sec 1:37 PM LPN RN INR 1.0 0.9 - 1.1 10/20/2019 DTL 1:37 PM LPN RN Comment: ----ADDITIONAL INFORMATION---- Standard intensity warfarin therapeutic range: 2.0 to 3.0 ?? High intensity warfarin therapeutic rang e: 2.5 to 3.5 Specimen Anatomical Collection Method Collection Time Receive d Time (Source) Location / / Volume Laterality Blood (Blood, 10/20/2019 12:57 10/20/2019 1:18 Venous) PM LPN RN PM LPN RN Keisha Bailey APRN C.N.P., M.S.N. LAB BLOOD ADD-ON Performing Organization Address City/State/ZIP Code Phon e Number [facility] - [address] [place] [address] [address] (ABNORMAL) CBC without Differential (10/20/2019 12:57 PM LPN RN) Patholo gist Method Time Signature Hemoglobin 12.4 (L) 13.2 - 10/20/2019 DTL 16.6 g/dL 1:27 PM LPN RN Hematocrit 36.4 (L) 38.3 - 10/20/2019 DTL 48.6 % 1:27 PM LPN RN Erythrocytes 4.15 (L) 4.35 - 10/20/2019 DTL 5.65 1:27 PM LPN RN x10(12)/L MCV 87.7 78.2 - 10/20/2019 DTL 97.9 fL 1:27 PM LPN RN RBC Distrib Width 12.7 11.8 - 10/20/2019 DTL 14.5 % 1:27 PM LPN RN Platelet Count 257 135 - 317 10/20/2019 DTL x10(9)/L 1:27 PM LPN RN Leukocytes 7.8 3.4 - 9.6 10/20/2019 DTL x10(9)/L 1:27 PM LPN RN Specimen Anatomical Collection Method Collection Time Receive d Time (Source) Location / / Volume Laterality Blood (Blood, 10/20/2019 12:57 10/20/2019 1:18 Venous) PM LPN RN PM LPN RN Keisha Bailey APRN, C.N.P., M.S.N. LAB BLOOD ADD-ON Performing Organization Address City/State/ZIP Code Phon e Number [facility] - [address] [place], [place] [address] [facility] [address] Laboratories-[facility] [address] BMD Bone Density Spine Hips (10/20/2019 12:21 PM LPN RN) Anatomical Region Laterality Modality Hip, Lumbar Spine, Nuclear Medicine RST LOS, N/A Radiographic Imaging Musculoskeletal ARZ LOS, Muskuloskeletal FLA LOS Specimen (Source) Anatomical Collection Method Collection Time Re ceived Time Location / / Volume Laterality 10/20/2019 12:32 PM LPN RN Impressions 10/20/2019 12:32 PM LPN RN No evidence of osteoporosis or osteopeni a found Narrative 10/20/2019 12:32 PM LPN RN EXAM: ??BMD BONE DENSITY SPINE HIPS FINDINGS: [...] including images and graphs, is available in [employer]. In the absence of other causes of [...] evidence of skeletal fragility in the a ppropriate clinical setting. Today's spine scan is considered non-yunior gnostic as valid results were available for only one vertebra (ISCD Guidelines). Patient does not meet ISCD guidelines fo r FRAX calculations. IMPRESSION: No evidence of osteoporosis or osteopeni a found Brigette Mir APRNNJolene., M.S.N. 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 PCP - General 03/13/17 01/09/[address] [phone] documented as of this encounter
--- OUTSIDE RECORDS SUMMARY | 2022-05-21 11:31 | XMS_ITS | Encounter Summary ---
:1945 Author Organization [facility] Address [address] [place] [address] Care Team Providers Name Role Phone Ewa Alejandro M.D. Primary Care Provider Encounter Details Date Type Department Care Team Description 10/28/2019 Clinical Communication Department of Family Kirill Torres [facility], Ewa Barclay, Clinic, in [place] [address] [place] [phone] Social History Tobacco Use Types Packs/Day Years [...] do you attend nondenominational or Never 2021 denominational services? Do you [...] have completed or the highest Martin, MEd, INFO SPECIALIST, CAYDEN) degree you have received? Sex Assigned at Date Recorded Male 05/21/2018 2:34 PM CDT documented as of this encounter Miscellaneous Notes Telephone Encounter - Ewa Alejandro M.D. 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 It will be fine for him to hold Plavix prior to an endoscopy. If we know when the procedure is, we can guide him as far as when to start holding. T SHIPPER Telephone Encounter - Natasha Decker - 10/28/2019 12:24 PM CST Reason for Communication: Patient is stating that [place] would like to schedule a scope. [place] needs a note from Dr. Mcneil for him to go off of blood thinners for 1 week before the scope. Current Can Nursing/Provider leave a detailed message: Did the patient refuse triage through Nurse line? (for symptom based concerns): Action Needed: Please send [place] permission for patient so they can schedule him. Name of Medication (if relevant): T SHIPPER documented in this encounter Plan of Treatment Not on filedocumented as of this encounter Visit Diagnoses Not on filedocumented in this encounter Additional Health Concerns Assessment Noted Time PHQ-9 Depression Total Score: 18 04/28/2018 11:27 AM C DT documented as of this encounter Care Teams Recording Studio Internship Relationship Specialty Start Date End Date Ewa Alejandro M.D. PCP - General 03/13/17 01/09/20 [address], [place] [address] documented as of this encounter
--- OUTSIDE RECORDS SUMMARY | 2022-05-21 11:31 | XMS_ITS | Encounter Summary ---
:1945 Author Organization [facility] Address [address] [place] [address] Care Team Providers Name Role Phone Ewa Alejandro M.D. Primary Care Provider [phone] Reason for Visit Reason Onset Date Comments Blood glucose review 11/05/2019 Encounter Details Date Type Department Care Team Description 11/05/2019 Clinical Department of Alysha Pompa Blood glucos e Communication Nutrition in A, R.N., CDCES review Center [place], [facility] [address] [place], [place] [address] [facility] [address] [place], [place] [phone] (Work) [phone] Social History Tobacco Use Types Packs/Day Years [...] do you attend rastafarian or Never 2021 bahai services? Do you [...] have completed or the highest Martin, MEd, TURN SEWER, CAYDEN) degree you have received? Sex Assigned at Date Recorded Male 05/21/2018 2:34 PM CDT documented as of this encounter Miscellaneous Notes Telephone Encounter - Alysha Pompa RMauroN. - 11/05/2019 11:50 AM CST Attempted to call patient, left message. GER ACADEMIC documented in this encounter Plan of Treatment Not on filedocumented as of this encounter Visit Diagnoses Not on filedocumented in this encounter Additional Health Concerns Assessment Noted Time PHQ-9 Depression Total Score: 18 04/28/2018 11:27 AM C DT documented as of this encounter Care Teams Laboratory Clerk Relationship Specialty Start Date End Date Ewa Alejandro M.D. PCP - General 03/13/17 01/09/[address] [phone] documented as of this encounter
--- OUTSIDE RECORDS SUMMARY | 2022-05-21 11:31 | XMS_ITS | Encounter Summary ---
:1945 Author Organization [facility] Address [address] [place] [address] Care Team Providers Name Role Phone Ewa Alejandro M.D. Primary Care Provider [phone] Encounter Details Date Type Department Care Team Description 06/30/2019 Documentation Division of Gastroenterology Ran [place] in [facility] cameron [address] [facility] [address] [place] [phone] Social History Tobacco Use Types Packs/Day Years [...] do you attend sabianism or Never 2021 mandaeism services? Do you [...] have completed or the highest Martin, MEd, UNIX ANALYST, CAYDEN) degree you have received? Sex Assigned at Date Recorded Male 05/21/2018 2:34 PM CDT documented as of this encounter Plan of Treatment Not on filedocumented as of this encounter Visit Diagnoses Not on filedocumented in this encounter Additional Health Concerns Assessment Noted Time PHQ-9 Depression Total Score: 18 04/28/2018 11:27 AM C DT documented as of this encounter Care Teams Commercial Production Editor Relationship Specialty Start Date End Date Ewa Alejandro M.D. PCP - General 03/13/17 01/09/20 [address], [place] [address] documented as of this encounter
--- OUTSIDE RECORDS SUMMARY | 2022-05-21 11:31 | XMS_ITS | Encounter Summary ---
:1945 Author Organization [facility] Address [address] [place] [address] Care Team Providers Name Role Phone Ewa Alejandro M.D. Primary Care Provider [phone] Reason for Referral Outpatient (Routine) - Closed Specialty Diagnoses / Procedures Referred By Contact Refer red To Contact Nutrition Diagnoses Diabetes Mellitus Type 2 With Diabetic Neuropathy (HCC) Debbie Marquis M.D. [facility] 200 [place] [address] Referral ID Status Reason Start Date Expiration Date Visits Requ ested Visits Authorized [id number] Closed 10/21/2019 10/20/2020 1 1 Scheduling Instructions schedule with Zoya at 3 pm on 11/01/19 TING MACHINE TENDER Encounter Details Date Type Department Care Team Description 10/21/2019 Clinical Support Department of Debbie Marquis M.D . Diabetes Mellitus Nutrition in Hair, Alysha Arias RJustina, [facility] [address] [place] [phone] Type 2 With Diabetic Alexia, Neuropathy (HCC ) [place] (Primary Dx) [address] [place] [phone] Social History Tobacco Use Types Packs/Day Years [...] do you attend gnosticist or Never 2021 hoahaoism services? Do you [...] have completed or the highest Martin, MEd, RACECAR DRIVER, CAYDEN) degree you have received? Sex Assigned at Date Recorded Male 05/21/2018 2:34 PM CDT documented as of this encounter Progress Notes Alysha Pompa RMauroN. - 10/21/2019 11:00 AM CST SUBJECTIVE CHIEF COMPLAINT/REASON FOR VISIT Diabetes Education Type of Visit: Insulin - Follow-up Referred by: Debbie Marquis M.D. HISTORY OF PRESENT ILLNESS OBJECTIVE Pertinent Labs: Lab Results Component Value Date HGBA1C 10.2 (H) 10/11/2019 HGBA1C 8.4 (H) 11/09/2018 ASSESSMENT / PLAN Medication Changes: Yes, per appointment with Dr. Brigette Marquis and Dr. Izaiah Garcia, patient will take NovoLog 10-10-10-0 with the 100-140 mg/dL correction scale instead of taking a variable amount of NovoLog insulin. The patient reportedly takes 20-40 units of Lantus insulin at bedtime. He was asked to begin taking Lantus insulin 0-0-0-30. The patient will continue to take Metformin 2,000 mg daily. Patient Education Provided: Yes, patient education was provided, refer to the patients education record. Diagnosis Plan 1. Diabetes Mellitus Type 2 With Diabetic Neuropathy (HCC) Nutrition - software educator visit (clinic) Nutrition office visit (clinic) Patient presents for his diabetes education appointment. Diabetes history: Type 2 DM since 1989, has been on insulin therapy for over 10 years Current insulin: Recommendations are to consistently take set doses of NovoLog and Lantus instead ofa variable amount every day. The patient reports taking NovoLog insulin in the middle of the night to correct for high blood glucose values. NovoLog 10-10-10-0 with the 100-140 mg/dL correction scale Lantus 0-0-0-30 Metformin 2,000 mg daily Goal range: 100-150 mg/dL Monitoring/blood sugar: The patient was encouraged to check his blood glucose readings before meal times and before bedtime. He was encouraged to record his blood glucose readings in the Diabetes Record Book for dose adjustment purposes. Hypoglycemia: The patient reports that he does have low blood glucose every once in a while. Diabetes education: We reviewed the rationale for checking blood glucose before meal times and before bedtime. We briefly reviewed dose adjustment principles. The patient would prefer to have his in the appointment for an in depth, formal education in MDI and dietary concepts. The next diabetes education appointment was scheduled for November 01, 2019. Goals: Take consistent NovoLog and Lantus insulin doses. Check blood glucose levels before meal times and before bedtime and record those values. Review in full the Multiple Daily Injection program anddietary concepts. The patient was encouraged to eliminate taking NovoLog before bedtime or in the middle of the night. The patient will return for a follow up consultation and Hemoglobin A1c in 3 months with Endocrinology. Greater than 50% of time spent in counseling/coordination of care. Contact information given for anyfuture questions or concerns. 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 PCP - General 03/13/17 01/09/20 [address] [place] [phone] documented as of this encounter
--- OUTSIDE RECORDS SUMMARY | 2022-05-21 11:31 | XMS_ITS | Encounter Summary ---
:1945 Author Organization [facility] Address [address] [place] [address] Care Team Providers Name Role Phone Ewa Alejandro M.D. Primary Care Provider [phone] Reason for Visit Reason Comments other patient requesting to have a ll specialist appointment in [place] be coordinated by primary provi vasquez Appointment Request (Routine) - Closed Specialty Diagnoses / Procedures Referred By Contact Refer red To Contact Family Medicine Referral ID Status Reason Start Date Expiration Date Visits Requ ested Visits Authorized [id number] Closed 09/28/2019 09/27/2020 1 1 Encounter Details Date Type Department Care Team Description 10/15/2019 Office Visit Department of Family Alicia freed Disorders Of Lung (Primary Dx); Medicine, Ewa Turner, Werner s Mellitus Type 2 Hyperglycemia (HCC) Clinic, in [place] [address] [place] [phone] Social History Tobacco Use Types Packs/Day Years [...] do you attend episcopal or Never 2021 bahai services? Do you [...] have completed or the highest Martin, MEd, TENDER COORDINATOR, CAYDEN) degree you have received? Sex Assigned at Date Recorded Male 05/21/2018 2:34 PM CDT documented as of this encounter Last Filed Vital Signs Vital Sign Reading Time Taken Comments Blood Pressure 134/66 10/15/2019 11:38 AM PACKAGE LINER Pulse 68 10/15/2019 11:38 AM PACKAGE LINER Temperature 36.4 ??C (97.5 ??F) 10/15/2019 11:38 AM PACKAGE LINER Respiratory Rate 18 10/15/2019 11:38 AM PACKAGE LINER Oxygen Saturation - - Inhaled Oxygen Concentration - - Weight 107 kg (236 lb 12.4 oz) 10/15/2019 11:38 AM PACKAGE LINER Height 188 cm (6' 2.02) 10/15/2019 11:38 AM PACKAGE LINER Body Mass Index 30.39 10/15/2019 11:38 AM PACKAGE LINER documented in this encounter Progress Notes Ewa Alejandro M.D. - 10/15/2019 11:45 AM CST SUBJECTIVE Chief Complaint Patient presents with ??? other patient requesting to have all specialist appointment in [place] be coordinated by primary provider HISTORY OF PRESENT ILLNESS Jonnathan Costa is a 74 y.o. male who presents to the clinic today to discuss referrals to [facility]. He states that he has not felt well over the past 20 months. He struggles with extreme fatigue. He is trying to manage his chronic pancreatitis and his diabetes. He is also wondering why when hegets a cold, he has fluid build up in his lungs for between 6-10 weeks. He has noticed a trigger with cleaning supplies. He would like a referral to [facility], but he is not sure which specialist to goto. He believes that he went through a depression recently. He was sleeping between 11-12 hours a day and still fatigued. Then around 09/17/19, he woke and felt better and happy. He is following with the Pancreas Clinic at [facility] and started following with Endocrinology to help manage his diabetes. He is currently on Creon to help with his chronic pancreatitis. The patient denies any additional questions or concerns at this time. REVIEW OF SYSTEMS Please see HPI for pertinent positives, otherwise rest of ROS negative. CURRENT MEDICATIONS Current Outpatient Medications Medication Sig Dispense [...] by mouth daily. 30 tablet 11 ??? insulin aspart U-100 (NovoLOG FlexPen) 100 unit/mL injection Inject 0-35 Units under the skin asneeded (up to 6/d). ??? insulin glargine (LANTUS) 100 unit/mL injection Inject 44 Units under the skin at bedtime. ??? insulin NPH and regular human (HumuLIN 70/30 U-100 KwikPen) 100 unit/mL (70- 30) injection LW Addl Instr:Indicated for: Diabetes ??? hynnyr-emkrroeu-aubvbth (CREON) 6,000-19,000-30,[address] capsule Take [...] ??? SYRINGE-NEEDLE,INSULIN,0.5 ML (INSULIN SYRINGE MISC) ??? flash glucose scanning reader (FREESTYLE ILEANA 14 DAY READER) misc Use as directed (Patient not taking: Reported on 10/15/2019 ) 1 each 0 ??? flash glucose sensor (FREESTYLE ILEANA 14 DAY SENSOR) kit Use as directed. (Patient not taking: Reported on 10/15/2019 ) 6 kit 3 ??? LORazepam (ATIVAN) 0.5 mg tablet Take [...] capsule Take 1 g by mouth daily. No current facility-administered medications for this visit. ALLERGIES / CONTRAINDICATIONS Allergies Allergen Reactions ??? Doxycycline Anaphylaxis Bactrim ??? Penicillin Hives Cerner Listed no Reactions ??? Sulfa (Sulfonamide Antibiotics) Other (see comments) Cerner Listed no Reactions ??? Amlodipine Hypotension ??? Victoza 2-Eyal [Liraglutide] GI intolerance ??? Gadavist [Gadobutrol] GI intolerance Patient vomited after administration MEDICAL HISTORY Past Medical History: Diagnosis Date ??? Apnea Sleep Obstructive 06/18/2011 intolerant to CPAP therapy ??? Asthma ([facility]) 10/16/2009 Pulmonary symptomatology, diagnosis at the [place] unclear, but probably some degree of COPD. [...] as far MRI of head on 09/17/2017 SURGICAL HISTORY Past Surgical History: Procedure Laterality [...] INSERTION INTRAOCULAR LENS Left 04/2008 At the [place] ??? LASER OF PROSTATE W/ GREEN LIGHT PVP 08/28/2016 Greenlight photoselective vaporization of the prostate and cystoscopy with bladder biopsy and fulguration of a 2cm area; 08/28/[address] Prasanna Bernal at the [facility]. ??? TONSILLECTOMY ??? VASECTOMY PREVENTIVE SERVICES: Social History Tobacco Use ??? Smoking status: Former Smoker Last attempt to quit: 1980 Years since quittin.0 ??? Smokeless tobacco: Never Used Substance Use Topics ??? Alcohol use: No Frequency: Monthly or less Drinks per session: 1 or 2 Binge frequency: Never ??? Drug use: No OBJECTIVE VITAL SIGNS BP 134/66 Pulse 68 Temp 36.4 ??C (Temporal) Resp 18 Ht 188 cm Wt 107 kg BMI 30.39 kg/m?? PHYSICAL EXAMINATION General: Patient is alert and oriented times three, in no acute distress, good hygiene and is dressed appropriately. Heart: Regular rate and rhythm without murmur. Lungs: Crackles at the right base. Extremities: Within normal limits. Skin: No rashes or suspicious lesions noted on exposed skin. ASSESSMENT / PLAN #1 Other Disorders Of Lung, suspected lung disease PLAN: Will place referral to [facility]. #2 Diabetes Mellitus Type 2 Hyperglycemia (HCC) PLAN: He is scheduled with Endocrinology at [facility] for further evaluation of this. #3 Follow up PLAN: The patient will contact the clinic with any new or worsening symptoms. ADMINISTRATIVE BILLING: At least 20 minutes of this 25 minute visit were spent in face to face counseling and coordination of care. This document serves as a record of services personally performed by Dr. Ewa Alejandro.It was created on their behalf by Karen Givens, a trained medical reception. The creation of this record is based on the scribe's personal observations and the provider's statements to them. This documenthas been checked and approved by the attending provider. AGE LINER documented in this encounter Plan of Treatment Not on filedocumented as of this encounter Visit Diagnoses Diagnosis Other Disorders Of Lung - Primary Diabetes Mellitus Type 2 Hyperglycemia ( HCC) documented in this encounter Additional Health Concerns Assessment Noted Time PHQ-9 Depression Total Score: 18 04/28/2018 11:27 AM C DT documented as of this encounter Care Teams Fumigator And Sterilizer Relationship Specialty Start Date End Date Ewa Alejandro M.D. PCP - General 03/13/17 01/09/20 [address] [place] [phone] documented as of this encounter
--- OUTSIDE RECORDS SUMMARY | 2022-05-21 11:31 | XMS_ITS | Encounter Summary ---
:1945 Author Organization [facility] Address [address] [place] [address] Care Team Providers Name Role Phone Ewa Alejandro M.D. Primary Care Provider [phone] Encounter Details Date Type Department Care Team Description 10/11/2019 Hospital Encounter Department of Parminder, Pancreat itis Chronic Laboratory Medicine Rhoda Stein (HCC) and Pathology, [address] [place] [address] in [place], [place] [phone] [place] [address] [place], [place] (Work) [phone] Social History Tobacco Use Types Packs/Day Years [...] do you attend anabaptist or Never 2021 moravian services? Do you [...] have completed or the highest Martin, MEd, LITIGATION ASSISTANT, CAYDEN) degree you have received? Sex [...] SYRINGE-NEEDLE,INSULIN, 0 0.5 ML (INSULIN SYRINGE MISC) hsdfdo-jbocblkh-lyhefwt Take 2 capsules by 240 capsule 3 [...] 05/01/2020 reader (FREESTYLE ILEANA 14 DAY READER) [facility] flash glucose sensor Use as directed. 6 [...] Diagnosis Comme nts VITAMIN A AND Routine 10/11/2019 9:52 AM Pancreatitis Chronic Results for this VITAMIN E, S HAND I TUBE BENDER ([facility]) procedure are i n the results section. 25-HYDROXYVITAMIN Routine 10/11/2019 9:52 AM Pancreatitis Nursing Assistant hilary Results for this D2 AND D3, S HAND I TUBE BENDER ([facility]) procedure are i n the results section. HEMOGLOBIN A1C, B Routine 10/11/2019 9:52 AM Pancreatitis Nursing Assistant hilary Results for this HAND I TUBE BENDER ([facility]) procedure are i n the results section. GLUCOSE, FASTING, Routine 10/11/2019 9:52 AM Pancreatitis Nursing Assistant hilary Results for this S/P HAND I TUBE BENDER ([facility]) procedure are i n the results section. CREATININE WITH Routine 10/11/2019 9:52 AM Pancreatitis Chroni c Results for this EGFR, S/P HAND I TUBE BENDER ([facility]) procedure are i n the results section. documented in this encounter Results (ABNORMAL) 25-Hydroxyvitamin D2 and D3 (10/11/2019 9:52 AM HAND I TUBE BENDER) athologist Signature 25-Hydroxy D2 <4.0 ng/mL 10/12/2019 [facility] 9:47 PM HAND I TUBE BENDER 25-Hydroxy D3 15 ng/mL 10/12/2019 [facility] 9:47 PM HAND I TUBE BENDER 25-Hydroxy D 15 (L) ng/mL 10/12/2019 [facility] Total 9:47 PM HAND I TUBE BENDER Comment: Interpretation: 10-19 ng/mL (mild to mod erate deficiency) ----REFERENCE VALUE---- 25-HYDROXY D TOTAL (D2+D3) Optimum level s in the healthy population are 20-50, patients with bone disease may benefit from higher levels within this r stan. ----ADDITIONAL INFORMATION---- This test was developed and its performa nce characteristics determined by [facility] in a manner consistent with CLIA requirements. This test has not been cleared or approved by the [place] Sus[place] d and Drug Administration. Specimen Anatomical Collection Method Collection Time Receive d Time (Source) Location / / Volume Laterality Blood (Blood, 10/11/2019 9:52 AM 10/11/19 1:30 Venous) HAND I TUBE BENDER PM HAND I TUBE BENDER Emil Zurita M.D. LAB BLOOD ADD-ON Performing Organization Address City/[facility] Phon e Number [facility] [address] [place] [address] SUPPORT [facility] [place] [address] Laboratory Medicine and Pathology [address] [place] [address] Dr. AYALA Vitamin A and Vitamin E (10/11/2019 9:52 AM HAND I TUBE BENDER) P athologist Signature Vitamin A 53.5 32.5 - 78.0 10/12/2019 [facility] mcg/dL 10:37 PM HAND I TUBE BENDER Comment: ----ADDITIONAL INFORMATION---- This test was developed and its performa nce characteristics determined by [facility] in a manner consistent with CLIA requirements. This test has not been cleared or approved by the [place]. [place] d and Drug Administration. A-Tocopherol, Vitamin E 10.9 5.5 - 17.0 mg/L 10/12/2019 1:35 PM HAND I TUBE BENDER [facility] Specimen Anatomical Collection Method Collection Time Receive d Time (Source) Location / / Volume Laterality Blood (Blood, 10/11/2019 9:52 AM 10/11/19 4:31 Venous) HAND I TUBE BENDER PM HAND I TUBE BENDER Emil Zurita M.D. LAB BLOOD NON ADD-ON Performing Organization Address City/[facility] Phon e Number [facility] [address] [place] [address] Dr AYALA [place], [place] [address] SUPPORT CENTER [facility] [place] [address] Laboratory Medicine and Pathology [address] [place] [address] Dr. AYALA (ABNORMAL) Glucose, Fasting (10/11/2019 9:52 AM HAND I TUBE BENDER) P athologist Signature Glucose, P 149 (H) 70 - 100 10/11/2019 [facility]TL mg/dL 11:01 AM HAND I TUBE BENDER Last Intake 17 hr 10/11/2019 [facility] 10:14 AM HAND I TUBE BENDER Specimen Anatomical Collection Method Collection Time Receive d Time (Source) Location / / Volume Laterality Blood (Blood, 10/11/2019 9:52 AM 10/11/19 20 Venous) HAND I TUBE BENDER 10:14 AM HAND I TUBE BENDER Emil Zurita M.D. LAB BLOOD NON ADD-ON Performing Organization Address City/[facility]/ZIP Code Phon e Number [facility] - [address] [place], [place] [address] [facility] [place] [address] [address] (ABNORMAL) Hemoglobin A1c (10/11/2019 9:52 AM HAND I TUBE BENDER) Analysis Performed At Patho logist Time Signature Hemoglobin A1c, 10.2 (H) 4.0 - 5.6 10/11/2019 DTL B % 12:15 PM HAND I TUBE BENDER Comment: Hemoglobin A1c values greater than or eq ual to 6.5 percent are diagnostic for diabetes mellitus. ?? Diagnosis should be confirmed by repeat testing. ??In diabet ic patients, HbA1c goals should be discussed with healthcar e provider. Specimen Anatomical Collection Method Collection Time Receive d Time (Source) Location / / Volume Laterality Blood (Blood, 10/11/2019 9:52 AM 10/11/19 20 Venous) HAND I TUBE BENDER 10:14 AM HAND I TUBE BENDER Emil Zruita M.D. LAB BLOOD ADD-ON Performing Organization Address City/State/ZIP Code Phon e Number [facility] - [address] [place], [place] [address] [facility] [place] [address] [address] (ABNORMAL) Creatinine with Estimated GFR (10/11/2019 9:52 AM HAND I TUBE BENDER) P athologist Signature Creatinine 1.26 0.74 - 10/11/2019 DTL 1.35 mg/dL 10:54 AM HAND I TUBE BENDER eGFR-Non 55 (L) >=60 10/11/2019 DTL Black/ mL/min/BSA 10:54 AM HAND I TUBE BENDER Vietnamese Comment: ----ADDITIONAL INFORMATION---- Estimated GFR calculated using the 2009 CKD_EPI creatinine equation. eGFR-Black/ 64 >=60 mL/min/BSA 2019 10:54 AM HAND I TUBE BENDER DTL Comment: ----ADDITIONAL INFORMATION---- Estimated GFR calculated using the 2009 CKD_EPI creatinine equation. Specimen Anatomical Collection Method Collection Time Receive d Time (Source) Location / / Volume Laterality Blood (Blood, 10/11/2019 9:52 AM 10/11/19 20 Venous) HAND I TUBE BENDER 10:14 AM HAND I TUBE BENDER Emil Zurita M.D. LAB BLOOD ADD-ON Performing Organization Address City/State/ZIP Code Phon e Number [facility] - [address] [place], [place] [address] [facility] [place] [address] [facility] [address] documented in this encounter Visit Diagnoses Diagnosis Pancreatitis Chronic (HCC) documented in this encounter Additional Health Concerns Assessment Noted Time PHQ-9 Depression Total Score: 18 04/28/2018 11:27 AM C DT documented as of this encounter Care Teams Talent Acquisition Partner Relationship Specialty Start Date End Date Ewa Alejandro M.D. PCP - General 03/13/17 01/09/20 [address] [place] [phone] documented as of this encounter
--- OUTSIDE RECORDS SUMMARY | 2022-05-21 11:32 | XMS_ITS | Encounter Summary ---
:1945 Author Organization [facility] Address [address] [place] [address] Care Team Providers Name Role Phone Ewa Alejandro M.D. Primary Care Provider [phone] Reason for Visit Reason Onset Date Comments Medicare Annual Wellness Visit with RN 06/18/2019 Encounter Details Date Type Department Care Team Description 06/18/2019 Clinical Communication Department of Estelle Chau Annual Community Internal L, R.N. Wellness Visit with Medicine in [address] [address] [place], [place] [phone] (Work) [phone] Social History Tobacco Use Types Packs/Day Years [...] do you attend islam or Never 2021 anabaptism services? Do you [...] have completed or the highest Martin, MEd, PULPWOOD CUTTER, CAYDEN) degree you have received? Sex Assigned at Date Recorded Male 05/21/2018 2:34 PM CDT documented as of this encounter Miscellaneous Notes Telephone Encounter - Estelle Chau R.N. - 07/01/2019 3:21 PM CDT Order placed. Scheduling will make another attempt to reach patient to schedule Medicare Annual Wellness Visit. Telephone Encounter - Estelle Chau R.N. - 06/18/2019 1:53 PM CDT Called patient to discuss scheduling a Medicare Annual Wellness Visit. Unable to reach patient, left message for patient to return call to discuss. documented in this encounter Plan of Treatment Not on filedocumented as of this encounter Visit Diagnoses Diagnosis Annual Medicare Examination Return - Jennifer meredith documented in this encounter Additional Health Concerns Assessment Noted Time PHQ-9 Depression Total Score: 18 04/28/2018 11:27 AM C DT documented as of this encounter Care Teams Garment Supervisor Relationship Specialty Start Date End Date Ewa Alejandro M.D. PCP - General 03/13/17 01/09/[address] [phone] documented as of this encounter
--- OUTSIDE RECORDS SUMMARY | 2022-05-21 11:32 | XMS_ITS | Encounter Summary ---
:1945 Author Organization [facility] Address [address] [place] [address] Care Team Providers Name Role Phone Ewa Alejandro M.D. Primary Care Provider [phone] Encounter Details Date Type Department Care Team Description 10/07/2018 Clinical Communication Division of Nicholas Triana, Endocrinology in [place], [place] [address] [facility] [address] [place] [phone] [phone] Social History Tobacco Use Types Packs/Day Years [...] do you attend anabaptism or Never 2021 mormonism services? Do you [...] or slept in a usp (including now)? Sex Assigned at Date Recorded Male 05/21/2018 2:34 PM CDT documented as of this encounter Plan of Treatment Not on filedocumented as of this encounter Visit Diagnoses Not on filedocumented in this encounter Additional Health Concerns Assessment Noted Time PHQ-9 Depression Total Score: 18 04/28/2018 11:27 AM C DT documented as of this encounter Care Teams Primer Assembler Relationship Specialty Start Date End Date Ewa Alejandro M.D. PCP - General 03/13/17 01/09/20 [address], [place] [phone] documented as of this encounter
--- OUTSIDE RECORDS SUMMARY | 2022-05-21 11:32 | XMS_ITS | Encounter Summary ---
:1945 Author Organization [facility] Address [address] [place] [address] Care Team Providers Name Role Phone Ewa Alejandro M.D. Primary Care Provider [phone] Reason for Referral MRI/CAT/PET Scan (Routine) - Closed Specialty Diagnoses / Procedures Referred By Contact Refer red To Contact Radiology Diagnoses Pancreatitis Chronic (HCC) Daisy Liu M.D. [place] Procedures CT Abdomen without and with IV Contrast and Pelvis with IV Con CT Abdomen Pelvis without and with IV Contrast [address] [place], [place] [address] Referral ID Status Reason Start Date Expiration Date Visits Requ ested Visits Authorized [id number] Closed 06/24/2019 06/23/2020 1 1 Reason for Visit MRI/CAT/PET Scan (Routine) - Closed Specialty Diagnoses / Procedures Referred By Contact Refer red To Contact Radiology Diagnoses Pancreatitis Chronic (HCC) Daisy Liu M.D. [place] [facility] Procedures CT Abdomen without and with IV Contrast and Pelvis with IV Con CT Abdomen Pelvis without and with IV Contrast [address] [place], [place] [phone] Referral ID Status Reason Start Date Expiration Date Visits Requ ested Visits Authorized [id number] Closed 06/24/2019 06/23/2020 1 1 Encounter Details Date Type Department Care Team Description 06/30/2019 Hospital Encounter Department of Daisy Liu Pancreat itis Chronic Radiology, Leanne Diaz M.D. ([facility]) Building, in [address] [place] [phone] 200 [facility] [phone] [place], [place] (Work) [phone] Social History Tobacco Use Types Packs/Day Years [...] do you attend baptist or Never 2021 mormonism services? Do you [...] have completed or the highest Martin, MEd, [employer], [place]) degree you have received? 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 6 [...] STAT STAT for 1 Occurrences Testing-Docked starting 10/2018 Device until 9 documented as of this encounter Procedures Procedure Name Priority Date/Time Associated Comments Diagnosis CT ABDOMEN RAD - Routine 06/30/2019 4:33 Pancreatitis Results for this WITHOUT AND WITH (most inpatients PM CDT Chronic (HCC) proced ure are in IV CONTRAST AND and all the results PELVIS WITH IV outpatients) section. CON CREATININE, POCT, Routine 06/30/2019 3:47 Results for this B PM CDT procedure are i n the results section. CREATININE, POCT, Routine 06/30/2019 3:47 Results for this B PM CDT procedure are i n the results section. documented in this encounter Results CT Abdomen without and with IV Contrast and Pelvis with IV Con (06/30/2019 4:33 PM CDT) Anatomical Region Laterality Modality Abdomen, Pelvis, Abdominal RST LOS, Abdominal ARZ LOS, N/A Computed Tomography Abdominal FLA LOS Specimen (Source) Anatomical Collection Method Collection Time Re ceived Time Location / / Volume Laterality 07/01/2019 7:07 AM CDT Impressions 07/01/2019 7:28 AM CDT 1. Chronic calcific pancreatitis. Interval increase in the size and number calcifications throughout the pancreas p arenchyma and main pancreatic duct. No acute pancreatitis. 2. New infiltrates or atelectasis in bot h lung bases with bilateral pleural effusions. Narrative 07/01/2019 7:28 AM CDT EXAM: ??CT ABDOMEN WITHOUT AND WITH IV CONTRAST AND PELVIS WITH IV CON COMPARISON: ??CT 08/19/2018, outside CT 04/22/2018. FINDINGS: ??Since 08/19/2018 there is be en increase in the number and size of the multiple pancreatic calcifications withi n the pancreatic duct and pancreatic parenchyma. The large stone in the main pancreatic duct in the head of the gland now measures 2.3 x 1.5 cm (series 9, silas ge 69), previously 2.0 x 1.1 cm (series 5, image 61). Maximal dilatation of the main pancreatic duct measures 1.5 cm (series 9, image 59). No pancreatic mass identified. No evidence of acute pancreatitis. No suspicious hepatic lesion. No evidenc e of bile duct dilatation. Gallbladder appears normal. Splenule. Multiple bilateral renal cysts . Both adrenals negative. No adenopathy. Stable tiny gastrohepatic and peripancre atic lymph nodes. Small and large bowel are normal in romina iber. Colonic diverticulosis. Fat-containing umbilical hernia. Enlarge d prostate. Urinary bladder appears negative. Stable stranding of the subcut aneous tissues in the anterior abdominal wall. Degenerative changes lumbar spine. No suspicious osseous lesions. New bilateral pleural effusions. Fibrosi s both lung bases. New areas of atelectasis or infiltrates in both lung bases posteriorly. Aortoiliac vascular calcifications. Procedure Note [place] Us M.D. - 07/01/2019Forma tting of this note might be different from the original. EXAM: CT ABDOMEN WITHOUT AND WITH IV CON TRAST AND PELVIS WITH IV CON COMPARISON: CT 08/19/2018, outside CT . FINDINGS: Since 08/19/2018 there is been increase in the number and size of the multiple pancreatic calcifications withi n the pancreatic duct and pancreatic parenchyma. The large stone in the main pancreatic duct in the head of the gland now measures 2.3 x 1.5 cm (series 9, silas ge 69), previously 2.0 x 1.1 cm (series 5, image 61). Maximal dilatation of the main pancreatic duct measures 1.5 cm (series 9, image 59). No pancreatic mass identified. No evidence of acute pancreatitis. No suspicious hepatic lesion. No evidenc e of bile duct dilatation. Gallbladder appears normal. Splenule. Multiple bilateral renal cysts . Both adrenals negative. No adenopathy. Stable tiny gastrohepatic and peripancre atic lymph nodes. Small and large bowel are normal in romina iber. Colonic diverticulosis. Fat-containing umbilical hernia. Enlarge d prostate. Urinary bladder appears negative. Stable stranding of the subcut aneous tissues in the anterior abdominal wall. Degenerative changes lumbar spine. No suspicious osseous lesions. New bilateral pleural effusions. Fibrosi s both lung bases. New areas of atelectasis or infiltrates in both lung bases posteriorly. Aortoiliac vascular calcifications. IMPRESSION: 1. Chronic calcific pancreatitis. Interv al increase in the size and number calcifications throughout the pancreas p arenchyma and main pancreatic duct. No acute pancreatitis. 2. New infiltrates or atelectasis in bot h lung bases with bilateral pleural effusions. Daisy Joe Vege M.D. IMG CT PROCEDURES Creatinine, POCT (06/30/2019 3:47 PM CDT) P athologist Signature Creatinine, 1.2 0.7 - 1.4 06/30/2019 POCT, B mg/dL 3:54 PM CDT Comment: ----ADDITIONAL INFORMATION---- Performed at the Point of Care Specimen Anatomical Collection Method Collection Time Receive d Time (Source) Location / / Volume Laterality Blood 06/30/2019 3:47 PM 9 3:54 CDT PM CDT Unknown Provider LAB POCT ORDERABLES - DEVICE Performing Organization Address City/[facility] Phon e Number POC [place] [facility] [address] [place] [address] (ABNORMAL) Creatinine, POCT (06/30/2019 3:47 PM CDT) athologist Signature eGFR-Black/Afri 68 >=60 06/30/2019 can [place], mL/min/BSA 3:54 PM CDT POCT Comment: ----ADDITIONAL INFORMATION---- Estimated GFR calculated using the 2009 CKD_EPI creatinine equation. eGFR Non-Black/, 59 (L) >=60 mL/min/BSA 06/30/2019 3:54 PM CDT POCT Comment: ----ADDITIONAL INFORMATION---- Estimated GFR calculated using the 2009 CKD_EPI creatinine equation. Specimen Anatomical Collection Method Collection Time Receive d Time (Source) Location / / Volume Laterality Blood 06/30/2019 3:47 PM 9 3:54 CDT PM CDT Unknown Provider LAB POCT ORDERABLES - DEVICE Performing Organization Address City/[facility] Phon e Number POC [facility] [address] [place], [place] [address] LABS documented in this encounter Visit Diagnoses Diagnosis Pancreatitis Chronic (HCC) documented in this encounter Administered Medications Inactive Administered Medications - up to 3 most recent administrations Medication Order MAR Action Action Date Dose Rate Site iohexol 300 mg iodine/mL solution Given 06/30/2019 4:23 PM CDT 1 40 mL 1-200 mL (OMNIPAQUE) 1-200 mL, intravenous, Once in imaging, contrast, Starting on Fri06/30/19 at 1530, For 1 dose, Imaging Protocol Orders, Dose per Radiant Medication Guidelines sodium chloride (PF) 0.9 % injection 1-1 00 mL Given 06/30/2019 4:23 PM CDT 50 mL 1-100 mL, intravenous, Once, On Fri06/30/19 at 1545, For 1 dose, Imaging Protocol Orders documented in this encounter Additional Health Concerns Assessment Noted Time PHQ-9 Depression Total Score: 18 04/28/2018 11:27 AM C DT documented as of this encounter Care Teams Guest Experience Representative Relationship Specialty Start Date End Date Ewa Alejandro M.D. PCP - General 03/13/17 01/09/[address] [place] [phone] documented as of this encounter
--- OUTSIDE RECORDS SUMMARY | 2022-05-21 11:32 | XMS_ITS | Encounter Summary ---
:1945 Author Organization [facility] Address [address] [place] [address] Care Team Providers Name Role Phone Ewa Alejandro M.D. Primary Care Provider [phone] Reason for Visit Reason Onset Date Comments AWV 10/09/2018 Encounter Details Date Type Department Care Team Description 10/09/2018 Clinical Communication [facility], in [place] [address] [place] [address] Social History Tobacco Use Types Packs/Day [...] do you attend mosque or Never 2021 gnosticist services? Do you [...] or slept in a correction (including now)? Sex Assigned at Date Recorded Male 05/21/2018 2:34 PM CDT documented as of this encounter Miscellaneous Notes Telephone Encounter - Caroline Plunkett R.N. - 10/09/2018 2:59 PM CST Jonnathan came into clinic to discuss annual wellness visit but ended up wanting me to share with you that he is going to have to take enzymes with food for the rest of his life. [facility]ant and is doing fine. He thinks his depression was related to snf/although maybe related to the pancreatitis that he developed at the same time. TRICAL TESTER BATTERY Telephone Encounter - Caroline Plunkett R.N. - 10/09/2018 2:53 PM CST Called patient to discuss scheduling a Medicare Annual Wellness Visit. Patient has a lot going on right now so wishes to delay scheduling one for 6 months. I will send to scheduling to call again and place an order. Best time to call him is 7:30am. TRICAL TESTER BATTERY documented in this encounter Plan of Treatment Not on filedocumented as of this encounter Visit Diagnoses Diagnosis Annual Medicare Examination Return - Jennifer masoud documented in this encounter Additional Health Concerns Assessment Noted Time PHQ-9 Depression Total Score: 18 04/28/2018 11:27 AM C DT documented as of this encounter Care Teams Mandrel Maker Relationship Specialty Start Date End Date Ewa Alejandro M.D. PCP - General 03/13/17 01/09/20 [address] [place] [address] documented as of this encounter
--- OUTSIDE RECORDS SUMMARY | 2022-05-21 11:32 | XMS_ITS | Encounter Summary ---
:1945 Author Organization [facility] Address [address] [place] [address] Care Team Providers Name Role Phone Ewa Alejandro M.D. Primary Care Provider [phone] Reason for Visit Outpatient (Routine) - Closed Specialty Diagnoses / Procedures Referred By Contact Refer red To Contact Sleep Medicine Diagnoses Hypertension Essential Primary Abnormal Oximetry Rob Cantu M.D. [facility] [address] [place] [phone] Referral ID Status Reason Start Date Expiration Date Visits V isits Requested Authorized [id number] Closed Specialty 02/09/2019 02/09/2020 1 1 Services Required Encounter Details Date Type Department Care Team Description 02/12/2019 Comprehensive Visit [facility] Americo Padilla rtension Essential Primary; Medicine in Rachael Arias, Abnormal Oximet [facility] [address] [place] [address] [place] [phone] Social History Tobacco Use Types Packs/Day Years [...] PM CDT documented as of this encounter Consult Notes Rachael Padilla P.A.-C. - 02/12/2019 3:30 PM CDT SUBJECTIVE CHIEFCOMPLAINT/REASON FOR CONSULT Abnormal overnight oximetry HISTORY OF PRESENT ILLNESS Mr. Costa is a 73 y.o. male who is seen by request of Rob Cantu M.D. for evaluation of abnormal overnight oximetry. He has a history of obstructive sleep apnea diagnosed at the [facility] approximately5 or 6 years ago. He tried CPAP but was unable to tolerate it. He has been seen here for many issuesincluding hypertension. He underwent an overnight oximetry recently which showed an oxygen desaturation index of 34 per hour. He was referred to Sleep Center for further evaluation. He spent a great deal of time today telling me his story including his past medical history of pancreatitis, hypertension and depression. He tells me that currently he goes to bed at 10:00 p.m. and sleeps 2 hours. He awakens to go the bathroom and goes right back to sleep for another 3-4 hours at which time he wakes up to go the bathroom. This time he goes to sleep in the recliner in the living room for another 3 hours. He feels refreshed when he awakens in the morning. He does not think he snores. He is not sleepy in the daytime. REVIEW OF SYSTEMS ENT: Positive for sinus congestion. Respiratory: Positive for wheezing. Hematologic: Positive for bruises or bleeds easily. Neurological: Positive for excessive daytime sleepiness and loss of balance or tendency to fall easily. Psychiatric/Behavioral: Positive for excessive daytime sleepiness/tiredness and little interest or pleasure in doing things over past two weeks. The following systems were negative: Constitutional, Skin, Eyes, CV, GI, , Musculoskeletal The following portions of the patient's history were reviewed and updated as appropriate: Current medications, allergies, social history, family history, medical history, surgical history and problem list. OBJECTIVE VITAL SIGNS Blood Pressure: 149/75 (01/26/2019 3:07 PM) Pulse Rate: 76 (01/26/2019 3:07 PM) Weight: 108 kg (01/26/2019 2:32 PM) PHYSICAL EXAM General: Normal.. Mental: Oriented to time, place, and person. Mood and affect normal. ASSESSMENT / PLAN #1 Previous diagnosis obstructive sleep apnea elsewhere #2 Intolerant to CPAP therapy #3 Abnormal overnight oximetry Mr. Costa is here today for evaluation of probable severe obstructive sleep apnea. I reviewed the pathophysiology of both obstructive and central sleep apnea with him. I discussed with him cardiovascular risks of untreated moderate to severe apnea. Despite the fact that he feels that he sleeps well and is not sleepy in the daytime, I recommended treating the apnea to prevent cardiovascular and neurologic disease. He is not willing to try CPAP again at this point. He asked for other options. I discussed with him the mandibular advancement device. I am concerned however, as he has not been to a dentist for the last 15-17 years. He tells me that his teeth are strong and he has not had any toothaches. He appears to have most of his teeth. He would definitely need to be seen by a dentist to see if he is a candidate for the mandibular advancement device. Finally I discussed with him oral surgery with a maxillomandibular advancement as an option although I realize that he most likely does not wish to have surgicaltherapy. At this time he thinks that his depression has improved significantly. He thinks that if we repeatedthe overnight oximetry in a month it would be much better. I have given my card as well as information regarding the options for treatment. I asked him to please call my secretary bookkeeper if he would like to schedule a return visit. He mentioned that he may ask Dr. Cantu to repeat an overnight oximetry in 1 month. documented in this encounter Plan of Treatment Not on filedocumented as of this encounter Visit Diagnoses Diagnosis Hypertension Essential Primary Abnormal Oximetry documented in this encounter Additional Health Concerns Assessment Noted Time PHQ-9 Depression Total Score: 18 04/28/2018 11:27 AM C DT documented as of this encounter Care Teams Aeronautical Engineering Professor Relationship Specialty Start Date End Date Ewa Alejandro M.D. PCP - General 03/13/17 01/09/[address] [phone] documented as of this encounter
--- OUTSIDE RECORDS SUMMARY | 2022-05-21 11:32 | XMS_ITS | Encounter Summary ---
:1945 Author Organization [facility] Address [address] [place] [address] Care Team Providers Name Role Phone Ewa Alejandro M.D. Primary Care Provider [phone] Encounter Details Date Type Department Care Team Description 11/23/2018 Clinical Communication Department of Alicia [facility] in [place], [place] [address] [place] [address] [place], [place] [phone] Social History Tobacco Use Types Packs/Day [...] do you attend spiritism or Never 2021 baptism services? Do you [...] or slept in a chcf (including now)? Sex Assigned at Date Recorded Male 05/21/2018 2:34 PM CDT documented as of this encounter Plan of Treatment Not on filedocumented as of this encounter Visit Diagnoses Not on filedocumented in this encounter Additional Health Concerns Assessment Noted Time PHQ-9 Depression Total Score: 18 04/28/2018 11:27 AM C DT documented as of this encounter Care Teams Health And Safety Trainer Relationship Specialty Start Date End Date Ewa Alejadnro M.D. PCP - General 03/13/17 01/09/20 [address], [place] [phone] documented as of this encounter
--- OUTSIDE RECORDS SUMMARY | 2022-05-21 11:32 | XMS_ITS | Encounter Summary ---
:1945 Author Organization [facility] Address [address] [place] [address] Care Team Providers Name Role Phone Ewa Alejandro M.D. Primary Care Provider Reason for Visit Reason Onset Date Comments Communication 12/22/2018 Comm Encounter Details Date Type Department Care Team Description 12/22/2018 Clinical Communication Department of Krzysztof Mitchell unication (Comm) [facility] [address] [place] [phone] Social History Tobacco Use Types Packs/Day Years [...] do you attend presybeterian or Never 2021 adventist services? Do you [...] slept in a care home (including now)? Sex Assigned at Date Recorded Male 05/21/2018 2:34 PM CDT documented as of this encounter Miscellaneous Notes Telephone Encounter - Isatu Mooney - 12/22/2018 3:36 PM CDT I spoke with patient this afternoon and he wanted me to let you know that he has been working with Gastro, Endo, and Nephrology. He says thank you and he misses you. He will be back. documented in this encounter Plan of Treatment Not on filedocumented as of this encounter Visit Diagnoses Not on filedocumented in this encounter Additional Health Concerns Assessment Noted Time PHQ-9 Depression Total Score: 18 04/28/2018 11:27 AM C DT documented as of this encounter Care Teams Docketing Specialist Relationship Specialty Start Date End Date Ewa Alejandro M.D. PCP - General 03/13/17 01/09/20 [address] [place] [phone] documented as of this encounter
--- OUTSIDE RECORDS SUMMARY | 2022-05-21 11:32 | XMS_ITS | Encounter Summary ---
:1945 Author Organization [facility] Address [address] [place] [address] Care Team Providers Name Role Phone Ewa Alejandro M.D. Primary Care Provider [phone] Reason for Visit Reason Comments Bladder Cancer 6 month surveillance Encounter Details Date Type Department Care Team Description 11/23/2018 Procedure visit Department of Urology Prasanna Bernal, Cancer Bladder in [place] Personal History [place] [address] [facility] [phone] Social History Tobacco Use Types Packs/Day [...] or slept in a [facility] (including now)? Sex Assigned at Date Recorded Male 05/21/2018 2:34 PM CDT documented as of this encounter Last Filed Vital Signs Vital Sign Reading Time Taken Comments Blood Pressure 150/70 11/23/2018 10:13 AM CIGAR MACHINE FEEDER Pulse 75 11/23/2018 10:13 AM CIGAR MACHINE FEEDER Temperature 37 ??C (98.6 ??F) 11/23/2018 10:13 AM CIGAR MACHINE FEEDER Respiratory Rate - - Oxygen Saturation - - Inhaled Oxygen Concentration - - Weight - - Height - - Body Mass Index - - documented in this encounter Procedure Notes Prasanna Bernal M.D. - 11/23/2018 10:00 AM CST CHIEF COMPLAINT / REASON FOR VISIT ?? CYSTOSCOPY REPORT ? INDICATION Bladder cancer. ??This is a 73-year-old male who had a transurethral resection of a bladder??tumor located on the right lateral wall on May 22, 2016. 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 ??On August 28, 2016 he underwent his initial postoperative evaluation and simultaneous GreenLight photoselective vaporization of the prostate. ??At this time he is doing ??well and has no complaints. ? INSTRUMENT Flexible cystoscope. ?? ANESTHESIA 2% aqueous [...] 4 cm. Lateral lobes: ??Well resected with moderate??apical tissue present. ? Middle lobe: ??Absent. Bladder [...] photoselective vaporization of the prostate. ? PLAN: An aliquot of urine was obtained and will be sent for cytology.?Return to clinic in 6 months for repeat cystoscopy and bladder cancer surveillance. ?If the next bladder cancer surveillance is negative, annual follow-up thereafter. Electronically signed by: Prasanna Bernal M.D. 11/23/18 10:42 AM ?? R MACHINE FEEDER documented in this encounter Plan of Treatment Not on filedocumented as of this encounter Procedures Procedure Name Priority Date/Time Associated Diagnosis Comme nts CYTOLOGY NON-HIGHWAY TRUCK DRIVER Routine 11/23/2018 11:01 AM Cancer Bladder Re sults for this CIGAR MACHINE FEEDER Personal History procedure a re in the results section. documented in this encounter Results (ABNORMAL) Cytology Non-HIGHWAY TRUCK DRIVER (Scheduled) (05/17/2019 8:53 AM CDT) Component Value Ref Test Analysis Performed At [facility] Range Method Time Signature Gross Description Received 100 05/18/2019 ml of yellow 10:42 AM alcohol fixed CDT fluid (A) Collection Voided (A) 05/18/2019 Procedure 10:42 AM CDT Fixative 50% Reagent 05/18/2019 Alcohol (A) 10:42 AM CDT Source A. Urine, 05/18/2019 Clean Catch, 10:42 AM voided (A) CDT Clinical History Z85.51 (A) 05/18/2019 10:42 AM CDT Report Brayd Goodrich MD 05/18/2019 electronically I verify that I have examined all relevant slides/ma terials 10:42 AM signed by for the specimen(s) and rendered or confirmed the diagnosis. CDT (A) 05/18/2019 (A) 10:42 AM CDT Interpretation A. Urine, Clean Catch, voided (cytospin): Atypical 05/18/2019 urothelial cells. 10:42 AM (A) CDT Specimen Anatomical Collection Method Collection Time Receive d Time (Source) Location / / Volume Laterality Varies (Urine, 05/17/2019 8:53 AM 019 6:56 Clean Catch) CDT AM CDT Narrative This result has an attachment that is no t available. Prasanna Bernal M.D. LAB SURG PATH ORDERABLES Performing Organization Address City/State/ZIP Code Phon e Number [facility] [address] [place] [address] CYTOLOGY Cytology Non-HIGHWAY TRUCK DRIVER (11/23/2018 11:01 AM CIGAR MACHINE FEEDER) Component Value Ref Test Analysis Performed At [facility] Range Method Time Signature Gross Description Received 60 11/24/2018 [facility] IC ml of yellow 10:04 AM HEALTH alcohol fixed [facility] fluid [place] [facility] Collection void 11/24/2018 [facility] Procedure 10:04 AM [facility] CYTOLOGY Fixative 50% alcohol 11/24/2018 [facility] 10:04 AM [facility] CYTOLOGY Source A. Urine, 11/24/2018 [facility] voided 10:04 AM [facility] CYTOLOGY Clinical History bladder 11/24/2018 [facility] cancer 10:04 AM [facility] CYTOLOGY Report Brady Goodrich MD 11/24/2018 [facility] electronically I verify that I have examined all relevant slides/ma terials 10:04 AM HEALTH signed by for the specimen(s) and rendered or confirmed the diagnosi s. [facility] CYTOLOGY 11/24/2018 [facility] 10:04 AM [facility] CYTOLOGY Interpretation A. Urine, voided (cytospin): Negative for High-Grade 11/24/2018 [facility] Urothelial Carcinoma. 10:04 AM [facility] CYTOLOGY Specimen Anatomical Collection Method Collection Time Receive d Time (Source) Location / / Volume Laterality Varies 11/23/2018 11:01 11/24/2018 8:[address] [facility] AM [facility] Narrative This result has an attachment that is no t available. Prasanna Bernal M.D. LAB SURG PATH ORDERABLES Performing Organization Address City/State/ZIP Code Phon e Number [facility] [address] [place] [address] CYTOLOGY documented in this encounter Visit Diagnoses Diagnosis Personal History Of Malignant Neoplasm O f Bladder documented in this encounter Additional Health Concerns Assessment Noted Time PHQ-9 Depression Total Score: 18 04/28/2018 11:27 AM C DT documented as of this encounter Care Teams Service Director Relationship Specialty Start Date End Date Ewa Alejandro M.D. PCP - General 03/13/17 01/09/[address] [phone] documented as of this encounter
--- OUTSIDE RECORDS SUMMARY | 2022-05-21 11:32 | XMS_ITS | Encounter Summary ---
:1945 Author Organization [facility] Address [address] [place] [address] Care Team Providers Name Role Phone Ewa Alejandro M.D. Primary Care Provider [phone] Encounter Details Date Type Department Care Team Description 02/18/2019 Clinical Communication Division of Nicholas Triana, Endocrinology in [place], [place] [address] [facility] [address] [place] [phone] Social History Tobacco Use Types Packs/Day Years [...] do you attend gnosticist or Never 2021 rastafarian services? Do you [...] or slept in a halfway (including now)? Sex Assigned at Date Recorded Male 05/21/2018 2:34 PM CDT documented as of this encounter Miscellaneous Notes Telephone Encounter - Shahram Luo - 02/18/2019 2:35 PM CDT This notice is to document that patient has not contacted the Appointment Office after being sent messages to schedule their return visit as ordered. At this time, the appointment request has been finalized. Should the patient contact us, we will restart the appointment process. documented in this encounter Plan of Treatment Not on filedocumented as of this encounter Visit Diagnoses Not on filedocumented in this encounter Additional Health Concerns Assessment Noted Time PHQ-9 Depression Total Score: 18 04/28/2018 11:27 AM C DT documented as of this encounter Care Teams [employer] Demonstrator Relationship Specialty Start Date End Date Ewa Alejandro M.D. PCP - General 03/13/17 01/09/[address] [phone] documented as of this encounter
--- OUTSIDE RECORDS SUMMARY | 2022-05-21 11:32 | XMS_ITS | Encounter Summary ---
:1945 Author Organization [facility] Address [address] [place] [address] Care Team Providers Name Role Phone Ewa Alejandro M.D. Primary Care Provider [phone] Reason for Visit Reason Comments Pancreas Medication Question Encounter Details Date Type Department Care Team Description 01/12/2019 Clinical Division of Par[facility] Pancreas; Communication Gastroenterology in [place], [place] Pat[place] Question [address] [facility] [address] [place] [address] [place] [address] Social History Tobacco Use Types Packs/Day Years [...] do you attend protestant or Never 2021 taoist services? Do you [...] documented as of this encounter Care Teams Building Associate Relationship Specialty Start Date End Date Ewa Alejandro M.D. PCP - General 03/13/17 01/09/[address] [place] [phone] documented as of this encounter
--- OUTSIDE RECORDS SUMMARY | 2022-05-21 11:32 | XMS_ITS | Encounter Summary ---
:1945 Author Organization [facility] Address [address] [place] [address] Care Team Providers Name Role Phone Ewa Alejandro M.D. Primary Care Provider [phone] Encounter Details Date Type Department Care Team Description 02/08/2019 Diagnostic Division of Pulmonary Rob Cantu rtension Essential Primary; Medicine in [place] M.D. Sleep Apnea [place] [address] [facility] [address] [place] [phone] Social History Tobacco Use Types Packs/Day Years [...] do you attend faith or Never 2021 jewish services? Do you [...] or slept in a snf (including now)? Sex Assigned at Date Recorded Male 05/21/2018 2:34 PM CDT documented as of this encounter Plan of Treatment Not on filedocumented as of this encounter Procedures Procedure Name Priority Date/Time Associated Diagnosis Comme nts PUL HOME OVERNIGHT OXIMETRY Routine 02/08/2019 Hypertension Essential Primary Sleep Apnea documented in this encounter Results Home Overnight Oximetry (02/08/2019) Specimen (Source) Anatomical Location Collection Method / Collectio n Time Received Time / Laterality Volume 02/08/2019 Narrative This result has an attachment that is no t available. Rob Cantu M.D. PFT ORDERABLES Performing Organization Address City/State/ZIP Code Phon e Number [facility] EAP documented in this encounter Visit Diagnoses Diagnosis Hypertension Essential Primary Sleep Apnea documented in this encounter Additional Health Concerns Assessment Noted Time PHQ-9 Depression Total Score: 18 04/28/2018 11:27 AM C DT documented as of this encounter Care Teams Nut Sheller Machine Operator Relationship Specialty Start Date End Date Ewa Alejandro M.D. PCP - General 03/13/17 01/09/[address] [place] [phone] documented as of this encounter
--- OUTSIDE RECORDS SUMMARY | 2022-05-21 11:32 | XMS_ITS | Encounter Summary ---
:1945 Author Organization [facility] Address [address] [place] [address] Care Team Providers Name Role Phone Ewa Alejandro M.D. Primary Care Provider Reason for Visit Reason Comments Blood Pressure Check Patient is in today, wanting to make a referral for his blood pressure Appointment Request (Routine) - Closed Specialty Diagnoses / Procedures Referred By Contact Refer red To Contact Family Medicine Referral ID Status Reason Start Date Expiration Date Visits Requ ested Visits Authorized [id number] Closed 11/03/2018 11/03/2019 1 1 Encounter Details Date Type Department Care Team Description 11/09/2018 Office Visit Department of Family [place] Hyp ertensive Heart Disease Without Heart Failure (Primary Dx); Medicine, Ewa Barclay, Diabetes Mellitus Type 2 (HCC) Clinic, in [place] [address] [place] [phone] Social History Tobacco Use Types Packs/Day Years [...] do you attend episcopal or Never 2021 catholic services? Do you [...] Sign Reading Time Taken Comments Blood Pressure 138/76 11/09/2018 8:55 AM LIEUTENANT COLONEL Pulse 78 11/09/2018 8:55 AM LIEUTENANT COLONEL Temperature 37.1 ??C (98.8 ??F) 11/09/2018 8:55 AM LIEUTENANT COLONEL Respiratory Rate 16 11/09/2018 8:55 AM LIEUTENANT COLONEL Oxygen Saturation - - Inhaled Oxygen Concentration - - Weight 107 kg (235 lb 3.7 oz) 11/09/2018 8:55 AM LIEUTENANT COLONEL Height 187.5 cm (6' 1.82) 11/09/2018 8:55 AM LIEUTENANT COLONEL Body Mass Index 30.35 11/09/2018 8:55 AM LIEUTENANT COLONEL documented in this encounter Progress Notes Ewa Alejandro M.D. - 11/09/2018 9:00 AM CST CHIEF COMPLAINT/ REASON FOR VISIT Concerns about blood pressure. HISTORY OF PRESENT ILLNESS Jonnathan Costa is a 73 y.o. male who presents to the clinic today for concerns about blood pressure. He has been struggling with his providers at the OR and he has been trying to switch his careto [place]. When he saw the bottle assembler at [place], he was scheduled with a PA and she told him that he needs to use his CPAP, even though he has been intolerant to this. She was worried about his blood pressure. He notes that when he comes into the clinic, his blood pressure on the machines are typicallyin the 140s. He has seen GI, endocrine, and a senior business analyst at [place] and they have a new regimen to help with his diabetes and his chronic diarrhea, caused by chronic pancreatitis. He is due for an A1c today. He notes that he is slowly getting better in terms of his depression. He is sleeping better at night, about 7 to 7-1/2 hours at night and generally takes a nap during the day. He still struggles a little bit with motivation, but it is getting better. The patient denies any additional questions or concerns at this time. SYSTEMS REVIEW Please see HPI for pertinent positives, otherwise rest of ROS negative. MEDICATIONS Current Outpatient Prescriptions Medication Sig Dispense Refill ??? albuterol (for_ACCUNEB) 2.5 mg /3 mL nebulizer solution Take 2.5 mg by nebulization every 6 (six) hours as needed for wheezing or shortness of breath. ??? albuterol sulfate 90 mcg/actuation aerosol powdr breath activated Inhale 2 puffs 2 (two) times aday. ??? atorvastatin (for_LIPITOR) 80 mg tablet Take 80 mg by mouth daily. ??? blood sugar diagnostic (ACCU-CHEK MIHAI PLUS TEST STRP) strips ??? budesonide-formoterol (for_SYMBICORT) 160-4.5 mcg/actuation inhaler Inhale 2 puffs 2 (two) timesa day. ??? clopidogrel (PLAVIX) 75 mg tablet Take 1 tablet by mouth daily. ??? flash glucose scanning reader (ActivNetworksSTYLE ILEANA 14 DAY READER) [facility] Use as directed 1 each 0 ??? flash glucose sensor (FREESTYLE ILEANA 14 DAY SENSOR) kit Use as directed. 6 kit 3 ??? hydroCHLOROthiazide (HYDRODIURIL) 25 mg tablet Take 1 tablet (25 mg total) by mouth daily. 90 tablet 3 ??? insulin aspart U-100 (NovoLOG FlexPen) 100 unit/mL injection Inject 0-35 Units under the skin asneeded (up to 6/d). ??? insulin glargine (LANTUS) 100 unit/mL injection Inject 44 Units under the skin at bedtime. ??? insulin NPH and regular human (HumuLIN 70/30 U-100 KwikPen) 100 unit/mL (70- 30) injection LW Addl Instr:Indicated for: Diabetes ??? ufxvsm-ywjdfbsp-srtapuc (CREON) 6,000-19,000-30,[address] capsule Take 2 capsules by mouthas directed. 2 capsules with meals and 1 with snacks 120 capsule 0 ??? lisinopril (PRINIVIL,ZESTRIL) 10 mg tablet Take 1 tablet by mouth. ??? losartan (for_COZAAR) 100 mg tablet Take 1 tablet by mouth daily. ??? metFORMIN (GLUMETZA) 1,000 mg 24 hr tablet Take 1 tablet (1,000 mg total) by mouth 2 (two) timesa day with meals. 180 tablet 3 ??? PEN NEEDLE, DIABETIC MISC Yani Fine 30 disposable needles. For use with Insulin Pens, 4 times daily ??? SYRINGE-NEEDLE,INSULIN,0.5 ML (INSULIN SYRINGE MISC) ??? escitalopram (LEXAPRO) 10 mg tablet Take 1 tablet (10 mg total) by mouth daily. 30 tablet 11 ??? LORazepam (ATIVAN) 0.5 mg tablet Take 1 tablet (0.5 mg total) by mouth at bedtime as needed for anxiety for up to 15 days. 15 tablet 0 ??? omega-3 fatty acids-fish oil 300-1,000 mg capsule Take 1 g by mouth daily. No current facility-administered medications for this visit. ALLERGIES Allergies Allergen Reactions ??? Doxycycline Rash ??? Penicillin Other (see comments) Cerner Listed no Reactions ??? Sulfa (Sulfonamide Antibiotics) Other (see comments) Cerner Listed no Reactions ??? Amlodipine Hypotension ??? Victoza 2-Eyal [Liraglutide] GI intolerance ??? Gadavist [Gadobutrol] GI intolerance Patient vomited after administration PAST MEDICAL / SURGICAL HISTORY Past Medical History: Diagnosis Date ??? Apnea Sleep Obstructive 06/18/2011 ??? Asthma (HCC) 10/16/2009 Pulmonary symptomatology, diagnosis at the OR unclear, but probably some degree of COPD. ??? 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 ??? Depression Anxiety 11/18/2006 ??? Diabetes Mellitus Type 2 With Diabetic Neuropathy (HCC) 11/18/2006 ??? Diverticulosis Colon 02/16/2018 ??? Dysfunction Erectile 09/23/2007 ??? Hernia Umbilical 05/24/2009 ??? Hernia Ventral 06/29/2009 ??? Hypercholesterolemia 09/23/2007 ??? Hyperplasia Prostate Benign Localized Without Obstruction 11/18/2006 ??? Hypertension Essential Primary 09/23/2007 ??? Polyp Colon Adenomatous 07/03/2009 ??? Polyp [...] INSERTION INTRAOCULAR LENS Left 04/2008 At the OR ??? LASER OF PROSTATE W/ GREEN LIGHT PVP 08/28/2016 Greenlight photoselective vaporization of the prostate and cystoscopy with bladder biopsy and fulguration of a 2cm area; 08/28/[address] Prasanna Bernal at the [facility]. ??? TONSILLECTOMY ??? VASECTOMY PREVENTIVE SERVICES Social History Substance Use Topics ??? Smoking status: Former Smoker Quit date: 1979 ??? Smokeless tobacco: Never Used ??? Alcohol use No VITAL SIGNS Vitals: 11/09/18 0855 BP: 138/76 Patient Position: Sitting Pulse: 78 Temp: 37.1 ??C Resp: 16 Height: 187.5 cm Weight: 106.7 kg TempSrc: Temporal Body mass index is 30.35 kg/m??. PHYSICAL EXAMINATION General: Patient is alert and oriented times three, in no acute distress, good hygiene and is dressed appropriately. Heart: Regular rate and rhythm without murmur. Lungs: Clear to auscultation. Skin: No rashes or suspicious lesions noted on exposed skin. DIAGNOSTICS CBC, Hgb A1c, BMP, and renal function panel are ordered today with results. ASSESSMENT / PLAN #1 Hypertensive Heart Disease Without Heart Failure PLAN: Labs are ordered as above. Due to his concerns, will send referral to nephrology clinic at [facility]. #2 Diabetes Mellitus Type 2 (HCC) PLAN: Hgb A1c and BMP are ordered today with results pending. #3 Follow up PLAN: The patient will contact the clinic with any new or worsening symptoms. ADMINISTRATIVE BILLING 20 minutes of this 25 minute visit was spent in face to face counseling and coordination of care. This document serves as a record of services personally performed by Ewa Roy MD. It was created on their behalf by Karen Givens, a trained ophthalmic medical assistant. The creation of this record is based on the scribe's personal observations and the provider's statements to them. This document has been ch ecked and approved by the attending provider. TENANT COLONEL documented in this encounter Plan of Treatment Not on filedocumented as of this encounter Procedures Procedure Name Priority Date/Time Associated Diagnosis Comme nts HEMOGLOBIN A1C, B Routine 11/09/2018 10:11 Diabetes Mellitus R esults for this AM LIEUTENANT COLONEL Type 2 (HCC) procedure are i n the results section. BASIC METABOLIC Routine 11/09/2018 10:11 Hypertensive Heart Re sults for this PANEL, S/P AM LIEUTENANT COLONEL Disease Without Heart proced ure are in Failure the results section. documented in this encounter Results (ABNORMAL) Renal Function Panel (11/09/2018 10:11 AM LIEUTENANT COLONEL) P athologist Signature Potassium, S 4.3 3.6 - 5.2 11/09/2018 [facility] mmol/L 1:44 PM [facility] Sodium, S 143 135 - 145 11/09/2018 [facility] mmol/L 1:44 PM [facility] Chloride, S 106 98 - 107 11/09/2018 [facility] mmol/L 1:44 PM [facility] [place] Bicarbonate, S 24 22 - 29 11/09/2018 [facility] mmol/L 1:44 PM [facility] Anion Gap 13 7 - 15 11/09/2018 [facility] 1:44 PM [facility] BUN (Blood Urea 28 (H) 8 - 24 11/09/2018 [facility] Nitrogen), S mg/dL 1:44 PM [facility] Creatinine 1.13 0.74 - 11/09/2018 [facility] 1.35 mg/dL 1:44 PM [facility] eGFR-Non 63 >=60 11/09/2018 [facility] Black/ mL/min/BSA 1:44 PM [facility] [place] [facility] Comment: ----ADDITIONAL INFORMATION---- Estimated GFR calculated using the 2009 CKD_EPI creatinine equation. eGFR-Black/ 73 >=60 mL/min/BSA 2018 1:44 PM [facility] Comment: ----ADDITIONAL INFORMATION---- Estimated GFR calculated using the 2009 CKD_EPI creatinine equation. Calcium, Total, S 9.7 8.8 - 10.2 11/09/2018 1:44 PM [facility] mg/dL [facility] Glucose, S 176 (H) 70 - 140 mg/dL 11/09/2018 1:[address] [facility] Albumin, S 4.4 3.5 - 5.0 g/dL 11/09/2018 1:44 PM [facility] Phosphorus 3.9 2.5 - 4.5 mg/dL 11/09/2018 3:52 PM [facility] HEALTH (Inorganic), [facility] Specimen Anatomical Collection Method Collection Time Receive d Time (Source) Location / / Volume Laterality Blood (Blood, 11/09/2018 10:11 11/09/2018 Venous) AM LIEUTENANT COLONEL 12:58 PM LIEUTENANT COLONEL Narrative [facility] - 11/09/2018 3:52 PM LIEUTENANT COLONEL Specimen Information: Specimen ID: [id number] Specimen Type: Blood Specimen Collection Start Date: 11/09/19 10:11 AM Specimen Received Date: 11/09/2018 12:58 PM Specimen ID: [id number] Specimen Type: Blood Specimen Collection Start Date: 11/09/19 10:11 AM Specimen Received Date: 11/09/2018 ??3:3 7 PM Ewa Alejandro M.D. LAB BLOOD ADD-ON Performing Organization Address City/State/ZIP Code Phon e Number [facility] [address] [place] [address] [facility] [address] [place] [address], [facility] (ABNORMAL) CBC with Differential (11/09/2018 10:11 AM LIEUTENANT COLONEL) [facility] Method Time Signature Hemoglobin 12.8 (L) 13.2 - 11/09/2018 [facility] 16.6 g/dL 10:17 AM [facility] Hematocrit 37.4 (L) 38.3 - 11/09/2018 [facility] 48.6 % 10:17 AM LIEUTENANT COLONEL [email or web address] Erythrocytes 4.28 (L) 4.35 - 11/09/2018 [facility] 5.65 10:17 AM LIEUTENANT COLONEL HEALTH x10(12)/L [email or web address] [facility] MCV 87.4 78.2 - 11/09/2018 [facility] 97.9 fL 10:17 AM [facility] RBC Distrib Width 13.6 11.8 - 11/09/2018 [facility] 14.5 % 10:17 AM [facility] Platelet Count 204 135 - 317 11/09/2018 [facility] x10(9)/L 10:17 AM [facility] Leukocytes 6.2 3.4 - 9.6 11/09/2018 [facility] x10(9)/L 10:17 AM [facility] Neutrophils 3.56 1.56 - 11/09/2018 [facility] 6.45 10:17 AM LIEUTENANT COLONEL HEALTH x10(9)/L [employer] [facility] Lymphocytes 1.47 0.95 - 11/09/2018 [facility] 3.07 10:17 AM [employer] x10(9)/L [facility] [place] [facility] Monocytes 0.38 0.26 - 11/09/2018 [facility] 0.81 10:17 AM LIEUTENANT COLONEL HEALTH x10(9)/L [facility]- [place] [facility] Eosinophils 0.71 (H) 0.03 - 11/09/2018 [facility] 0.48 10:17 AM LIEUTENANT COLONEL HEALTH x10(9)/L [facility]- [place] [facility] Basophils 0.08 0.01 - 11/09/2018 [facility] 0.08 10:17 AM LIEUTENANT COLONEL HEALTH x10(9)/L [facility]- [place] [facility] Specimen Anatomical Collection Method Collection Time Receive d Time (Source) Location / / Volume Laterality Blood (Blood, 11/09/2018 10:11 11/09/2018 Venous) AM LIEUTENANT COLONEL 10:11 AM LIEUTENANT COLONEL Ewa Alejandro M.D. LAB BLOOD ADD-ON Performing Organization Address City/State/ZIP Code Phon e Number [facility] [address] [place] [address] LAB (ABNORMAL) Hemoglobin A1c (11/09/2018 10:11 AM LIEUTENANT COLONEL) P athologist Signature Hemoglobin A1c, 8.4 (H) 4.2 - 5.6 11/09/2018 [facility] B % 1:18 PM [facility] Comment: Hemoglobin A1c values greater than or eq ual to 6.5 percent are diagnostic for diabetes mellitus. ?? Diagnosis should be confirmed by repeat testing. ??In diabet ic patients, HbA1c goals should be discussed with healthcar e provider. Specimen Anatomical Collection Method Collection Time Receive d Time (Source) Location / / Volume Laterality Blood (Blood, 11/09/2018 10:11 11/09/2018 Venous) AM LIEUTENANT COLONEL 12:58 PM LIEUTENANT COLONEL Ewa Alejandro M.D. LAB BLOOD ADD-ON Performing Organization Address City/State/ZIP Code Phon e Number [email or web address] [address] [address] LAB (ABNORMAL) Basic Metabolic Panel (11/09/2018 10:11 AM LIEUTENANT COLONEL) P athologist Signature Potassium, S 4.2 3.6 - 5.2 11/09/2018 [facility] mmol/L 1:33 PM [facility] Sodium, S 142 135 - 145 11/09/2018 [facility] mmol/L 1:33 PM [facility] Chloride, S 105 98 - 107 11/09/2018 [facility] mmol/L 1:33 PM [facility] Bicarbonate, S 24 22 - 29 11/09/2018 [facility] mmol/L 1:33 PM [facility] Anion Gap 13 7 - 15 11/09/2018 [facility] 1:33 PM [facility] BUN (Blood Urea 28 (H) 8 - 24 11/09/2018 [facility] Nitrogen), S mg/dL 1:33 PM [facility] Creatinine 1.13 0.74 - 11/09/2018 [facility] 1.35 mg/dL 1:33 PM [facility] eGFR-Non 63 >=60 11/09/2018 [facility] Black/ mL/min/BSA 1:33 PM [facility] [place] [facility] Comment: ----ADDITIONAL INFORMATION---- Estimated GFR calculated using the 2009 CKD_EPI creatinine equation. eGFR-Black/ 73 >=60 mL/min/BSA 2018 1:33 PM [facility] Comment: ----ADDITIONAL INFORMATION---- Estimated GFR calculated using the 2009 CKD_EPI creatinine equation. Calcium, Total, S 9.7 8.8 - 10.2 mg/dL 11/09/2018 1:33 PM [facility] Glucose, S 177 (H) 70 - 140 mg/dL 11/09/2018 1:33 PM [facility] Specimen Anatomical Collection Method Collection Time Receive d Time (Source) Location / / Volume Laterality Blood (Blood, 11/09/2018 10:11 11/09/2018 Venous) AM LIEUTENANT COLONEL 12:57 PM LIEUTENANT COLONEL Ewa Alejandro M.D. LAB BLOOD ADD-ON Performing Organization Address City/State/ZIP Code Phon e Number [facility] [address] [place] [address] LAB documented in this encounter Visit Diagnoses Diagnosis Hypertensive Heart Disease Without Heart Failure - Primary Diabetes Mellitus Type 2 (HCC) Hypertensive Heart Disease Without Heart Failure documented in this encounter Additional Health Concerns Assessment Noted Time PHQ-9 Depression Total Score: 18 04/28/2018 11:27 AM C DT documented as of this encounter Care Teams Head Baker Relationship Specialty Start Date End Date Ewa Alejandro M.D. PCP - General 03/13/17 01/09/[address] [address] documented as of this encounter
--- OUTSIDE RECORDS SUMMARY | 2022-05-21 11:32 | XMS_ITS | Encounter Summary ---
:1945 Author Organization [facility] Address [address] [place] [address] Care Team Providers Name Role Phone Ewa Alejandro M.D. Primary Care Provider [phone] Reason for Referral Outpatient (Routine) - Closed Specialty Diagnoses / Procedures Referred By Contact Madelaine castillo To Contact Nephrology and Rob Cantu [facility] Hypertension [place] [address] [place] [address] Referral ID Status Reason Start Date Expiration Date Visits Requ ested Visits Authorized [id number] Closed 11/24/2018 11/24/2019 1 1 ESS CAMERA OPERATOR Reason for Visit Outpatient (Routine) - Closed Specialty Diagnoses / Procedures Referred By Contact Madelaine castillo To Contact Nephrology and Diagnoses Hypertensive Heart And Chronic Kidney Disease Without Heart Failure And With Stage 2 (Mild) Chronic Kidney [facility] Ewa maloney M.D. [address] [address] Referral ID Status Reason Start Date Expiration Date Visits V isits Requested Authorized [id number] Closed Specialty 11/16/2018 11/16/2019 1 1 Services Required Encounter Details Date Type Department Care Team Description 11/24/2018 Comprehensive Visit Division of Prateek Cantu Heart And Chronic Kidney Disease Without Heart Failure And With Stage 2 (Mild) Chronic Kidney Disease (Primary Dx); Nephrology and Rob Barber M.D. 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); Hypertension in 200 Hyperlipidem ia On Treatment [facility] [address] [facility] [address] [phone] Social History Tobacco Use Types Packs/Day Years [...] do you attend confucianist or Never 2021 sikhism services? Do you [...] or slept in a residential (including now)? Sex Assigned at Date Recorded Male 05/21/2018 2:34 PM CDT documented as of this encounter Last Filed Vital Signs Vital Sign Reading Time Taken Comments Blood Pressure 152/81 11/24/2018 11:20 AM PROCESS CAMERA OPERATOR Pulse 77 11/24/2018 11:20 AM PROCESS CAMERA OPERATOR Temperature - - Respiratory Rate - - Oxygen Saturation - - Inhaled Oxygen Concentration - - Weight 108 kg (238 lb 15.7 oz) 11/24/2018 10:21 AM PROCESS CAMERA OPERATOR Height - - Body Mass Index 30.83 11/09/2018 8:55 AM PROCESS CAMERA OPERATOR documented in this encounter Consult Notes Rob Cantu M.D. - 11/24/2018 10:15 AM CST Referring Provider: Ewa Anthony* SUBJECTIVE REASON FOR CONSULT Patient comes for an opinion regarding hypertension management. HISTORY OF PRESENT ILLNESS Mr. Costa is a 73 y.o. male who has a history of hypertension of 30 years duration and on treatmentfor the last 20 years. He is currently on hydrochlorothiazide 25 mg once daily and losartan 100 mg once daily. He states that blood pressure when measured at home is generally in the 140 -145 / <80 mm Hg range. He attempts a low-salt diet. Is mildly overweight and his weight is stable. He has not been exercising regularly in part due to a resolving depression. He has a remote history of tobacco use. He has statin modified hyperlipidemia. He has a history of type 2 diabetes since 1990. He is currently on insulin. Does have probable neuropathy but denies a history of retinopathy. His renal function has been reasonably normal with a recent creatinine of 1.13 mg/ dL. Urinalyses have been benign buthe does have mild micro albuminuria. His diabetes has been modestly controlled and he is working with endocrinology for to improve this. He has known sleep apnea but has been intolerant of CPAP. He does describe symptoms of daytime somnolence. He has no history of heart disease and denies symptoms of angina or heart failure. He had a couple of episodes a few years ago that were interpreted as transient ischemic attacks. He has been intolerant of lisinopril and amlodipine. He does have chronic problems of imbalance and these drugs aggravated that significantly. REVIEW OF SYSTEMS ENT: Positive for sinus [...] Constitutional, Skin, Eyes, CV, GI, , Musculoskeletal OBJECTIVE BP 152/81 (Patient Position: Sitting) Pulse 77 Wt 108.4 kg BMI 30.83 kg/m?? PHYSICAL EXAMINATION Physical Exam DIAGNOSTICS Recent laboratory studies were reviewed. I note creatinine 1.13 mg/dL, normal blood electrolytes. 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 I have suggested that we switch him from hydrochlorothiazide to chlorthalidone 25 mg daily. He will continue losartan 100 mg daily. I will see him for a recheck in 4 weeks. At that time I will order a 6 hr ambulatory BP to further assess level of control. He is in agreement with this plan. Rob Cantu M.D. ESS CAMERA OPERATOR documented in this encounter Plan of Treatment Scheduled Referrals Name Type Priority Associated Order Schedule Diagnoses Nephrology and Outpatient Referral Routine Expect ed: Hypertension office 12/23/19 19 visit (clinic) (Approximate) , Expires: 11/24/2021 documented as of this encounter Results NEP Blood pressure check 6 hr (12/24/2018 3:37 PM CDT) Specimen (Source) Anatomical Location Collection Method / Collectio n Time Received Time / Laterality Volume Narrative This result has an attachment that is no t available. Rob Cantu M.D. PFT ORDERABLES Performing Organization Address City/State/ZIP Code Phon e Number [facility] documented in this encounter Visit Diagnoses Diagnosis Hypertensive Heart And Chronic Kidney Di sease Without Heart Failure And With Stage 2 (Mild) Chronic Kidney Disease - Primary 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) Hyperlipidemia On Treatment documented in this encounter Additional Health Concerns Assessment Noted Time PHQ-9 Depression Total Score: 18 04/28/2018 11:27 AM C DT documented as of this encounter Care Teams Systems Test Engineer Relationship Specialty Start Date End Date Ewa Alejandro M.D. PCP - General 03/13/17 01/09/20 [address], [place] [id number] documented as of this encounter
--- OUTSIDE RECORDS SUMMARY | 2022-05-21 11:32 | XMS_ITS | Encounter Summary ---
:1945 Author Organization [facility] Address [address] [place] [address] Care Team Providers Name Role Phone Ewa Alejandro M.D. Primary Care Provider Encounter Details Date Type Department Care Team Description 01/21/2019 Orders Only [facility] [address] [place] [phone] (Wo rk) Social History Tobacco Use Types [...] do you attend confucianist or Never 2021 anabaptism services? Do you [...] slept in a senior care (including now)? Sex Assigned at Date Recorded Male 05/21/2018 2:34 PM CDT documented as of this encounter Plan of Treatment Not on filedocumented as of this encounter Visit Diagnoses Not on filedocumented in this encounter Additional Health Concerns Assessment Noted Time PHQ-9 Depression Total Score: 18 04/28/2018 11:27 AM C DT documented as of this encounter Care Teams Safety Physician Relationship Specialty Start Date End Date Ewa Alejandro M.D. PCP - General 03/13/17 01/09/[address] [phone] documented as of this encounter
--- OUTSIDE RECORDS SUMMARY | 2022-05-21 11:32 | XMS_ITS | Encounter Summary ---
:1945 Author Organization [facility] Address [address] [place] [address] Care Team Providers Name Role Phone Ewa Alejandro M.D. Primary Care Provider [phone] Reason for Visit Outpatient (Routine) - Closed Specialty Diagnoses / Procedures Referred By Contact Refer red To Contact Nephrology and Rob Cantu [place] [facility] on Hypertension [place] [address] [place] [address] Referral ID Status Reason Start Date Expiration Date Visits Requ ested Visits Authorized [id number] Closed 02/16/2019 02/16/2020 1 1 Encounter Details Date Type Department Care Team Description 03/23/2019 Office Visit Division of Nephrology Rob Cantu Hyp ertension Essential and Hypertension in [place] Primary (Primary Dx) [place], [place] 200 [facility] 200 [place] [phone] Social History Tobacco Use Types Packs/Day Years [...] do you attend gnosticism or Never 2021 mandaen services? Do you belong to any clubs or No 10/09/2021 organizations such as gnosticism groups, unions, fraMedialets or athletic groups, or school groups? How [...] have completed or the highest Martin, MEd, SHIPPING RECEIVING MANAGER, [place]) degree you have received? Sex Assigned at Date Recorded Male 05/21/2018 2:34 PM CDT documented as of this encounter Last Filed Vital Signs Vital Sign Reading Time Taken Comments Blood Pressure - - Pulse - - Temperature - - Respiratory Rate - - Oxygen Saturation - - Inhaled Oxygen Concentration - - Weight 105 kg (231 lb 14.8 oz) 03/23/2019 10:48 AM CDT Height - - Body Mass Index 29.92 11/09/2018 8:55 AM RODENT EXTERMINATOR documented in this encounter Progress Notes Rob Cantu M.D. - 03/23/2019 11:00 AM CDT SUBJECTIVE REASON FOR VISIT Patient returns for blood pressure recheck. HISTORY OF PRESENT ILLNESS Mr. Costa returns for follow up. He brings a list of his medications to this visit. I confirmed with him that he is currently taking chlorthalidone 25 mg once daily, losartan 100 mg once daily, and diltiazem 120 mg once daily. He is feeling well on the medication without complaint of side effect. OBJECTIVE DIAGNOSTICS Blood pressure this afternoon is 138/74 mm Hg with pulse 71 and regular. ASSESSMENT / PLAN #1 Hypertension Essential Primary Blood pressure control is satisfactory. I advise continuation of the present program. He does not wish to pursue the issue of sleep apnea further at this time. Rob Cantu M.D. documented in this encounter Plan of Treatment Not on filedocumented as of this encounter Visit Diagnoses Diagnosis Hypertension Essential Primary - Primary documented in this encounter Additional Health Concerns Assessment Noted Time PHQ-9 Depression Total Score: 18 04/28/2018 11:27 AM C DT documented as of this encounter Care Teams Tax Processor Relationship Specialty Start Date End Date Ewa Alejandro M.D. PCP - General 03/13/17 01/09/[address] [phone] documented as of this encounter
--- OUTSIDE RECORDS SUMMARY | 2022-05-21 11:32 | XMS_ITS | Encounter Summary ---
:1945 Author Organization [facility] Address [address] [place] [address] Care Team Providers Name Role Phone Ewa Alejandro M.D. Primary Care Provider Encounter Details Date Type Department Care Team Description 11/09/2018 Hospital Encounter Department of [facility] Medicine Ewa brunson Diseas e Without Heart in [place] [address] [place] [phone] Social History Tobacco Use Types Packs/Day [...] do you attend cheondoism or Never 2021 restoration services? Do you [...] or slept in a penitentiary (including now)? Sex Assigned at Date Recorded Male 05/21/2018 2:34 PM CDT documented as of this encounter Medications at Time of Discharge Medication Sig Dispensed Refills Start Date End Date atorvastatin (for_LIPITOR) Take 80 mg by 0 80 mg tablet mouth daily. blood sugar diagnostic Reports checking 0 strips 4-5 times daily. clopidogreL (PLAVIX) 75 mg Take 1 tablet by 0 09/2015 tablet mouth daily. escitalopram (LEXAPRO) 10 Take 1 tablet (10 30 tablet 11 mg tablet mg total) by mouth daily. PEN NEEDLE, DIABETIC MISC Yani Fine 30 0 disposable needles. For use with Insulin Pens, 4 times daily SYRINGE-NEEDLE,INSULIN,0.5 0 ML (INSULIN SYRINGE MIS) albuterol (for_ACCUNEB) Take 2.5 mg by 0 05/25/2020 2.5 mg /3 mL nebulizer nebulization every solution 6 (six) hours as needed for wheezing or shortness of breath. albuterol sulfate 90 Inhale 2 puffs 0 08/19/2016 09/13/2020 mcg/actuation aerosol every 6 (six) powdr breath activated hours as needed. budesonide-formoterol Inhale 2 puffs as 0 013 12/16/2019 (for_SYMBICORT) 160-4.5 needed. mcg/actuation inhaler flash glucose scanning Use as directed 1 each 0 09/18/20 18 05/01/2020 reader (FitWithMeSTYLE ILEANA 14 DAY READER) [facility] flash glucose sensor Use as directed. 6 kit 3 8 05/01/2020 (FREESTYLE ILEANA 14 DAY SENSOR) kit gemfibroziL (LOPID) 600 mg Take 1 tablet by 0 11/06/2021 tablet mouth. hydroCHLOROthiazide Take 1 tablet (25 90 tablet 3 8 11/24/2018 (HYDRODIURIL) 25 mg tablet mg total) by mouth daily. insulin aspart U-100 Inject 20-25 Units 0 05/06/2020 (NovoLOG FlexPen) 100 under the skin as unit/mL injection needed. With meals insulin glargine (LANTUS) Inject 20 Units 0 01/3105/06/2020 100 unit/mL injection under the skin at bedtime. insulin NPH and regular LW Addl 0 11/15/2008 0 05/04/2020 human (HumuLIN 70/30 U-100 Instr:Indicated KwikPen) 100 unit/mL for: Diabetes (70-30) injection zefthw-qtoonnex-tbufcas Take 2 capsules by 120 capsule 0 01/13/2019 (CREON) mouth as directed. 6,000-19,000-30,000 Unit [address] capsule meals and 1 with snacks lisinopril Take 1 tablet by 0 11/15/2008 01/21/20 20 (PRINIVIL,ZESTRIL) 10 mg mouth. tablet lisinopriL Take 1 tablet by 0 11/15/2008 11/06/19 22 (PRINIVIL,ZESTRIL) 10 mg mouth daily. tablet LORazepam (ATIVAN) 0.5 mg Take 1 tablet (0.5 15 tablet 0 01/21/2019 tablet mg total) by mouth at bedtime as needed for anxiety for up to 15 days. losartan (for_COZAAR) 100 Take 50 mg by 0 10/13/ 014 05/06/2020 mg tablet mouth daily. metFORMIN (GLUMETZA) 1,000 Take 1 tablet 180 tablet 3 201705/06/2020 mg 24 hr tablet (1,000 mg total) by mouth 2 (two) times a day with meals. metFORMIN (GLUMETZA) 1,000 Take 1 tablet by 0 11/07/2021 mg 24 hr tablet mouth daily. omega-3 fatty acids-fish Take 1 g by mouth 0 03/15/2020 oil 300-1,000 mg capsule daily. documented as of this encounter Plan of Treatment Not on filedocumented as of this encounter Procedures Procedure Name Priority Date/Time Associated Diagnosis Comme nts RENAL FUNCTION Routine 11/09/2018 10:11 Hypertensive Heart Res ults for this PANEL, S AM PAPER MACHINE BACK TENDER Disease Without Heart proced ure are in Failure the results section. CBC WITH Routine 11/09/2018 10:11 Hypertensive Heart Resul ts for this DIFFERENTIAL, B AM PAPER MACHINE BACK TENDER Disease Without Heart pro cedure are in Failure the results section. documented in this encounter Results (ABNORMAL) Renal Function Panel (11/09/2018 10:11 AM PAPER MACHINE BACK TENDER) P athologist Signature Potassium, S 4.3 3.6 - 5.2 11/09/2018 [facility] mmol/L 1:44 PM [facility] Sodium, S 143 135 - 145 11/09/2018 [facility] mmol/L 1:44 PM [facility] Chloride, S 106 98 - 107 11/09/2018 [facility] mmol/L 1:44 PM [facility] Bicarbonate, S 24 22 - 29 11/09/2018 [facility] mmol/L 1:44 PM [facility] Anion Gap 13 7 - 15 11/09/2018 [facility] 1:44 PM [facility] BUN (Blood Urea 28 (H) 8 - 24 11/09/2018 [facility] Nitrogen), S mg/dL 1:44 PM [facility] Creatinine 1.13 0.74 - 11/09/2018 [facility] 1.35 mg/dL 1:44 PM [facility] [place] eGFR-Non 63 >=60 11/09/2018 [facility] Black/ mL/min/BSA 1:44 PM [facility] [place] [facility] Comment: ----ADDITIONAL INFORMATION---- Estimated GFR calculated using the 2009 CKD_EPI creatinine equation. eGFR-Black/ 73 >=60 mL/min/BSA 2018 1:44 PM [facility] [place] [facility] Comment: ----ADDITIONAL INFORMATION---- Estimated GFR calculated using the 2009 CKD_EPI creatinine equation. Calcium, Total, S 9.7 8.8 - 10.2 11/09/2018 1:44 PM [facility] mg/dL [facility] [place] [facility] Glucose, S 176 (H) 70 - 140 mg/dL 11/09/2018 1:44 PM [facility] [place] [facility] Albumin, S 4.4 3.5 - 5.0 g/dL 11/09/2018 1:44 PM [facility] Phosphorus 3.9 2.5 - 4.5 mg/dL 11/09/2018 3:[address] [facility] (Inorganic), S [facility] Specimen Anatomical Collection Method Collection Time Receive d Time (Source) Location / / Volume Laterality Blood (Blood, 11/09/2018 10:11 11/09/2018 Venous) AM PAPER MACHINE BACK TENDER 12:58 PM PAPER MACHINE BACK TENDER Narrative [facility] - 11/09/2018 3:52 PM PAPER MACHINE BACK TENDER Specimen Information: Specimen ID: [id number] Specimen Type: Blood Specimen Collection Start Date: 11/09/19 19 10:11 AM Specimen Received Date: 11/09/2018 12:58 PM Specimen ID: [id number] Specimen Type: Blood Specimen Collection Start Date: 11/09/19 10:11 AM Specimen Received Date: 11/09/2018 ??3:3 7 PM Ewa Alejandro M.D. LAB BLOOD ADD-ON Performing Organization Address City/State/ZIP Code Phon e Number [facility] [address] [place] [address] [place] [facility] [address] [place] [address], U [facility] (ABNORMAL) CBC with Differential (11/09/2018 10:11 AM PAPER MACHINE BACK TENDER) [facility] Method Time Signature Hemoglobin 12.8 (L) 13.2 - 11/09/2018 [facility] 16.6 g/dL 10:17 AM [facility] Hematocrit 37.4 (L) 38.3 - 11/09/2018 [facility] 48.6 % 10:17 AM [facility] Erythrocytes 4.28 (L) 4.35 - 11/09/2018 [facility] 5.65 10:17 AM PAPER MACHINE BACK TENDER [facility] x10(12)/L [facility] [place] [facility] MCV 87.4 78.2 - 11/09/2018 [facility] 97.9 fL 10:17 AM PAPER MACHINE BACK TENDER [address] SYSTEM- [employer] LAB RBC Distrib Width 13.6 11.8 - 11/09/2018 [facility] 14.5 % 10:17 AM [facility] Platelet Count 204 135 - 317 11/09/2018 [facility] x10(9)/L 10:17 AM [facility] Leukocytes 6.2 3.4 - 9.6 11/09/2018 [facility] x10(9)/L 10:17 AM [facility] Neutrophils 3.56 1.56 - 11/09/2018 [facility] 6.45 10:17 AM PAPER MACHINE BACK TENDER HEALTH x10(9)/L [facility]- [place] [facility] Lymphocytes 1.47 0.95 - 11/09/2018 [facility] 3.07 10:17 AM PAPER MACHINE BACK TENDER HEALTH x10(9)/L [facility]- [place] [facility] Monocytes 0.38 0.26 - 11/09/2018 [facility] 0.81 10:17 AM PAPER MACHINE BACK TENDER HEALTH x10(9)/L [facility]- [place] [facility] Eosinophils 0.71 (H) 0.03 - 11/09/2018 [facility] 0.48 10:17 AM PAPER MACHINE BACK TENDER HEALTH x10(9)/L [facility]- [place] [facility] Basophils 0.08 0.01 - 11/09/2018 [facility] 0.08 10:17 AM PAPER MACHINE BACK TENDER HEALTH x10(9)/L [facility] [place] [facility] Specimen Anatomical Collection Method Collection Time Receive d Time (Source) Location / / Volume Laterality Blood (Blood, 11/09/2018 10:11 11/09/2018 Venous) AM PAPER MACHINE BACK TENDER 10:11 AM PAPER MACHINE BACK TENDER Ewa Alejandro M.D. LAB BLOOD ADD-ON Performing Organization Address City/State/ZIP Code Phon e Number [facility] [address] [address] LAB documented in this encounter Visit Diagnoses Diagnosis Hypertensive Heart Disease Without Heart Failure documented in this encounter Additional Health Concerns Assessment Noted Time PHQ-9 Depression Total Score: 18 04/28/2018 11:27 AM C DT documented as of this encounter Care Teams White Metal Corrosion Proofer Relationship Specialty Start Date End Date Ewa Alejandro M.D. PCP - General 03/13/17 01/09/20 [address] [place] [phone] documented as of this encounter
--- OUTSIDE RECORDS SUMMARY | 2022-05-21 11:32 | XMS_ITS | Encounter Summary ---
:1945 Author Organization [facility] Address [address] [place] [address] Care Team Providers Name Role Phone Ewa Alejandro M.D. Primary Care Provider [phone] Encounter Details Date Type Department Care Team Description 01/21/2019 Clinical Communication Department of [facility], [facility], L[facility]uro[facility], [facility], [address] [place], [place] 300 [facility] [address] [place], [place] [phone] [address] (Work) [phone] Social History Tobacco Use Types Packs/Day Years [...] do you attend pentecostal or Never 2021 sikh services? Do you [...] slept in a group home (including now)? Sex Assigned at Date Recorded Male 05/21/2018 2:34 PM CDT documented as of this encounter Miscellaneous Notes Telephone Encounter - Yadira Matias L.P.N. - 01/21/2019 2:58 PM CDT SUBJECTIVE CHIEF COMPLAINT / REASON FOR CALL No chief complaint on file. Patient is requesting the following information: Requesting anti anxiety meds to be refilled please PLAN The following information was provided : Notified Jonnathan that escitalopram was refilled and faxed script for the ativan Information: patient/caller able to repeat back in their own words The following references were used: provider Dr Roy Telephone Encounter - Yadira Matias L.P.N. - 01/21/2019 12:00 PM CDT Jonnathan would like to start his anti anxiety meds again, he has refills available on the escitalopram so had them refill it for him and then pended the ativan.... He believes its the life changes that virgilios been going through lately- intermediate- that may have started his anxiety and sleeping issues lately.... documented in this encounter Plan of Treatment Not on filedocumented as of this encounter Visit Diagnoses Not on filedocumented in this encounter Additional Health Concerns Assessment Noted Time PHQ-9 Depression Total Score: 18 04/28/2018 11:27 AM C DT documented as of this encounter Care Teams Equity Manager Relationship Specialty Start Date End Date Ewa Alejandro M.D. PCP - General 03/13/17 01/09/20 [address], [place] [phone] documented as of this encounter
--- OUTSIDE RECORDS SUMMARY | 2022-05-21 11:32 | XMS_ITS | Encounter Summary ---
:1945 Author Organization [facility] Address [address] [place] [address] Care Team Providers Name Role Phone Ewa Alejandro M.D. Primary Care Provider [phone] Reason for Referral MRI/CAT/PET Scan (Routine) - Closed Specialty Diagnoses / Procedures Referred By Contact Refer red To Contact Radiology Diagnoses Pancreatitis Chronic (HCC) Daisy Liu M.D. [facility] Procedures CT Abdomen without and with IV Contrast and Pelvis with IV Con CT Abdomen Pelvis without and with IV Contrast [address] [place] [phone] Referral ID Status Reason Start Date Expiration Date Visits Requ ested Visits Authorized [id number] Closed 06/24/2019 06/23/2020 1 1 Encounter Details Date Type Department Care Team Description 06/24/2019 Orders Only Division of Ran Eduardo Pancreatitis Chronic Gastroenterology in [address] [place] [address] (HCC) (Primary Dx) [place], [place] [address] [place] [phone] [place] [address] Social History Tobacco Use Types Packs/Day [...] do you attend congregational or Never 2021 jainism services? Do you belong to any clubs or No 10/09/2021 organizations such as congregational groups, unions, [employer] or athletic groups, or school groups? How [...] completed or the highest Martin, MEd, BUSINESS BANKING RELATIONSHIP MANAGER, [place]) degree you have received? Sex Assigned at Date Recorded Male 05/21/2018 2:34 PM CDT documented as of this encounter Plan of Treatment Not on filedocumented as of this encounter Results CT Abdomen without and [...] lung bases with bilateral pleural effusions. Daisy SALINAS CT PROCEDURES documented in this encounter Visit Diagnoses Diagnosis Pancreatitis Chronic (HCC) - Primary Pancreatitis Chronic (HCC) documented in this encounter Additional Health Concerns Assessment Noted Time PHQ-9 Depression Total Score: 18 04/28/2018 11:27 AM C DT documented as of this encounter Care Teams Design And Sales Consultant Relationship Specialty Start Date End Date Ewa Alejandro M.D. PCP - General 03/13/17 01/09/20 [address] [place] [phone] documented as of this encounter
--- OUTSIDE RECORDS SUMMARY | 2022-05-21 11:32 | XMS_ITS | Encounter Summary ---
:1945 Author Organization [facility] Address [address] [place] [address] Care Team Providers Name Role Phone Ewa Alejandro M.D. Primary Care Provider [phone] Reason for Referral Outpatient (Routine) - Closed Specialty Diagnoses / Procedures Referred By Contact Refer anna To Contact Nephrology and Rob Cantu [place] [facility] on Hypertension [place] [address] [place] [address] Referral ID Status Reason Start Date Expiration Date Visits Requ ested Visits Authorized [id number] Closed 02/16/2019 02/16/2020 1 1 Reason for Visit Outpatient (Routine) - Closed Specialty Diagnoses / Procedures Referred By Contact Madelaine castillo To Contact Nephrology and Rob Cantu [place] [facility] on Hypertension [facility].DM[facility]uro [address] [place] [address] Referral ID Status Reason Start Date Expiration Date Visits Requ ested Visits Authorized [id number] Closed 02/09/2019 02/09/2020 1 1 Encounter Details Date Type Department Care Team Description 02/16/2019 Office Visit Division of Nephrology Rob Cantu Hyp ertension Essential Primary (Primary Dx); and Hypertension in [place] Barber Abnormal Oximetry [place], [place] [address] [facility] [address] [place] [phone] [phone] Social History Tobacco Use Types Packs/Day Years [...] do you attend anabaptism or Never 2021 confucianism services? Do you [...] or slept in a prison (including now)? Sex Assigned at Date Recorded Male 05/21/2018 2:34 PM CDT documented as of this encounter Progress Notes Rob Cantu M.D. - 02/16/2019 9:30 AM CDT SUBJECTIVE REASON FOR VISIT Tests review/Wrap up HISTORY OF PRESENT ILLNESS Mr. Costa returns for follow up. [facility] and decline further evaluation at this time. He would like to repeat the overnight oximetry test before considering this. He believes that since his depression has lifted he will have a different results. I agreed to do this. Willlet me know when he wishes to repeat the study. We again reviewed his antihypertensive regimen. It is clear that he has not been taking diltiazem. He also thinks that he may be taking a medication thatis currently not on his list of active medications. I note that he was on lisinopril in the past butthis was switched to losartan. I wrote down the 3 antihypertensives that he should be taking and he will review this when he gets home. I also advised him that he should not be taking both lisinopril and losartan. This was all written down for him. He will go home and if he has any questions he will contact me. OBJECTIVE ASSESSMENT / PLAN #1 Essential Hypertension #2 Abnormal overnight oximetry He will begin taking diltiazem and reviews current medications to make sure that he is also taking chlorthalidone 25 mg once daily and losartan 100 mg daily. I will see him again in 4 weeks for blood pressure recheck. Rob Cantu M.D. documented in this encounter Plan of Treatment Scheduled Referrals Name Type Priority Associated Order Schedule Diagnoses Nephrology and Outpatient Referral Routine Expect ed: Hypertension office 03/19/20 19 visit (clinic) (Approximate) , Expires: 02/16/2022 documented as of this encounter Visit Diagnoses Diagnosis Hypertension Essential Primary - Primary Abnormal Oximetry documented in this encounter Additional Health Concerns Assessment Noted Time PHQ-9 Depression Total Score: 18 04/28/2018 11:27 AM C DT documented as of this encounter Care Teams House Carpenter Relationship Specialty Start Date End Date Ewa Alejandro M.D. PCP - General 03/13/17 01/09/[address] [phone] documented as of this encounter
--- OUTSIDE RECORDS SUMMARY | 2022-05-21 11:32 | XMS_ITS | Encounter Summary ---
:1945 Author Organization [facility] Address [address] [place] [address] Care Team Providers Name Role Phone Ewa Alejandro M.D. Primary Care Provider [phone] Reason for Visit Reason Onset Date Comments scheduling AWV 10/07/2018 Encounter Details Date Type Department Care Team Description 10/07/2018 Clinical Communication Department of Anjana [place] scheduling AWV [facility] Noam Santos [facility], in [place] [address] [place] [address] Social History Tobacco Use Types [...] you attend jehovah's witness or Never 2021 religion services? Do you belong to any clubs [...] or slept in a retirement (including now)? Sex Assigned at Date Recorded Male 05/21/2018 2:34 PM CDT documented as of this encounter Miscellaneous Notes Telephone Encounter - Caroline Plunkett R.N. - 10/07/2018 3:57 PM CST Called patient to discuss scheduling a Medicare Annual Wellness Visit. Patient is coming in tomorrow am to discuss. ERY INSTALLER documented in this encounter Plan of Treatment Not on filedocumented as of this encounter Visit Diagnoses Not on filedocumented in this encounter Additional Health Concerns Assessment Noted Time PHQ-9 Depression Total Score: 18 04/28/2018 11:27 AM C DT documented as of this encounter Care Teams Receiving Coordinator Relationship Specialty Start Date End Date Ewa Alejandro M.D. PCP - General 03/13/17 01/09/[address] [phone] documented as of this encounter
--- OUTSIDE RECORDS SUMMARY | 2022-05-21 11:32 | XMS_ITS | Encounter Summary ---
:1945 Author Organization [facility] Address [address] [place] [address] Care Team Providers Name Role Phone Ewa Alejandro M.D. Primary Care Provider [phone] Encounter Details Date Type Department Care Team Description 05/24/2019 Ancillary Procedure Department of Urology Social History [...] do you attend yazidism or Never 2021 scientologist services? Do you [...] have completed or the highest Martin, MEd, PILATES INSTRUCTOR, [place]) degree you have received? Sex Assigned at Date Recorded Male 05/21/2018 2:34 PM CDT documented as of this encounter Plan of Treatment Not on filedocumented as of this encounter Procedures Procedure Name Priority Date/Time Associated Diagnosis Comme nts UROLOGY IMAGE EXAM Routine 05/24/2019 6:00 AM Res ults for this CDT procedure are i n the results section. documented in this encounter Results CYSTOSCOPY-Urology Image Exam (05/24/2019 6:00 AM CDT) Specimen (Source) Anatomical Collection Method Collection Time Re ceived Time Location / / Volume Laterality 05/24/2019 5:56 AM CDT Narrative [facility] - 05/24/2019 9:17 AM CDT This order has been created [...] documented as of this encounter Care Teams Gyroscopic Instrument Mechanic Relationship Specialty Start Date End Date Ewa Alejandro M.D. PCP - General 03/13/17 01/09/[address] [place] [address] documented as of this encounter
--- OUTSIDE RECORDS SUMMARY | 2022-05-21 11:32 | XMS_ITS | Encounter Summary ---
:1945 Author Organization [facility] Address [address] [place] [address] Care Team Providers Name Role Phone Ewa Alejandro M.D. Primary Care Provider [phone] Reason for Referral Outpatient (Routine) - Closed Specialty Diagnoses / Procedures Referred By Contact Refer red To Contact Nephrology and Rob Cantu [facility] M.DMauro [address] [place] [address] Referral ID Status Reason Start Date Expiration Date Visits Requ ested Visits Authorized [id number] Closed 02/09/2019 02/09/2020 1 1 Outpatient (Routine) - Closed Specialty Diagnoses / Procedures Referred By Contact Refer anna To Contact Sleep Medicine Diagnoses Hypertension Essential Primary Abnormal Oximetry Rob Cantu M.D. [facility] [address] [place] [address] Referral ID Status Reason Start Date Expiration Date Visits V isits Requested Authorized [id number] Closed Specialty 02/09/2019 02/09/2020 1 1 Services Required Reason for Visit Outpatient (Routine) - Closed Specialty Diagnoses / Procedures Referred By Contact Madelaine castillo To Contact Nephrology and Rob Cantu [facility] M.DMauro [address] [place] [address] Referral ID Status Reason Start Date Expiration Date Visits Requ ested Visits Authorized [id number] Closed 01/26/2019 01/26/2020 1 1 Encounter Details Date Type Department Care Team Description 02/09/2019 Office Visit Division of Nephrology Alondra Rob Hyp ertension Essential Primary (Primary Dx); and Hypertension in [place] Abnormal Oximetry [place], [place] [address] [facility] [address] [place] [address] [phone] Social History Tobacco Use Types Packs/Day Years [...] do you attend worship or Never 2021 gnosticist services? Do you [...] or slept in a half-way (including now)? Sex Assigned at Date Recorded Male 05/21/2018 2:34 PM CDT documented as of this encounter Progress Notes Rob Cantu M.D. - 02/09/2019 11:00 AM CDT SUBJECTIVE REASON FOR VISIT Test Review/Follow-up HISTORY OF PRESENT ILLNESS Mr. Costa returns for follow up. He states that his daytimes fatigue is lifting and his depressed mood is improving. We reviewed his medications and it is uncertain whether he has actually been takingthe chlorthalidone. I wrote down his current blood pressure treatment program which consists of chlorthalidone 25 mg once daily, losartan 100 mg once daily and diltiazem 120 mg once daily. OBJECTIVE DIAGNOSTICS The overnight oximetry test is abnormal and suggests an hypopnea index of 34/hour. Blood pressure this morning is 143/77 mm Hg with pulse 75. ASSESSMENT / PLAN #1 Hypertension Essential Primary #2 Abnormal Oximetry I discussed the results of the oximetry study with the patient and he agrees to proceed with a formal sleep center consultation. He will continue his present antihypertensive drug therapies without change at this visit. If he has not been taking chlorthalidone but restarts this medication it could have a significant further benefit on his blood pressure level. I will see him back following consultation in the Sleep Center. Rob Cantu M.D. documented in this encounter Plan of Treatment Scheduled Referrals Name Type Priority Associated Diagnoses Order S [facility] Sleep Medicine - Outpatient Referral Routine Hypertension Expe cted: General consult Essential Primar y 02/09/2019 (clinic) Abnormal Oximetry (Approxima te), Expires: 02/09/2022 Nephrology and Outpatient Referral Routine Expect ed: Hypertension office 02/10/20 19 visit (clinic) (Approximate) , Expires: 02/09/2022 documented as of this encounter Visit Diagnoses Diagnosis Hypertension Essential Primary - Primary Abnormal Oximetry documented in this encounter Additional Health Concerns Assessment Noted Time PHQ-9 Depression Total Score: 18 04/28/2018 11:27 AM C DT documented as of this encounter Care Teams Enologist Relationship Specialty Start Date End Date Ewa Alejandro M.D. PCP - General 6/15/17 [address] [place] [address] documented as of this encounter
--- OUTSIDE RECORDS SUMMARY | 2022-05-21 11:32 | XMS_ITS | Encounter Summary ---
:1945 Author Organization [facility] Address [address] [place] [address] Care Team Providers Name Role Phone Ewa Alejandro M.D. Primary Care Provider [phone] Reason for Referral Outpatient (Routine) - Closed Specialty Diagnoses / Procedures Referred By Contact Refer red To Contact Diagnoses Personal History Of Malignant Neoplasm Of Bladder Prasanna Bernal M.D. [facility] Procedures Cystoscopy (specific provider) [address] [place] [address] Referral ID Status Reason Start Date Expiration Date Visits Requ ested Visits Authorized [id number] Closed 05/24/2019 05/23/2020 1 1 Reason for Visit Reason Comments Follow-up Encounter Details Date Type Department Care Team Description 05/24/2019 Procedure visit Department of Urology Prasanna Bernal, Cancer Bladder in [place] Personal History [place] [address] [place], [place] [phone] Social History Tobacco Use Types Packs/Day Years [...] do you attend religion or Never 2021 mandaen services? Do you [...] completed or the highest Martin, MEd, EQUIPMENT PROCESSOR, CAYDEN) degree you have received? Sex Assigned at Date Recorded Male 05/21/2018 2:34 PM CDT documented as of this encounter Last Filed Vital Signs Vital Sign Reading Time Taken Comments Blood Pressure 148/73 05/24/2019 8:55 AM CDT Pulse 77 05/24/2019 8:55 AM CDT Temperature 37.1 ??C (98.8 ??F) 05/24/2019 8:55 AM CDT Respiratory Rate - - Oxygen Saturation - - Inhaled Oxygen Concentration - - Weight - - Height - - Body Mass Index - - documented in this encounter Procedure Notes Prasanna Bernal M.D. - 05/24/2019 9:00 AM CDT CHIEF COMPLAINT / REASON FOR VISIT ?? CYSTOSCOPY REPORT ? INDICATION Bladder cancer. ?? Original resection: May 22, 2016, tumor on right lateral wall Original pathology: Papillary transitional cell carcinoma, grade 1, stage TA Other: [employer]Light PVP, August 28, 2016 Intravesical therapy: None: Last upper tract studies: August 19, 2018 Last cystoscopy: November 23, 2018 Urine cytology collected on May 17, 2019 is atypical.? INSTRUMENT Flexible cystoscope. ?? ANESTHESIA 2% aqueous [...] was obtained and will be sent for a repeat urine cytology, given the atypical result obtained last week.?? Provided the repeat urine cytology is negative, the patient would like to be maintained on every 6 month follow-up, as opposed to graduating to yearly intervals. Electronically signed by: Prasanna Bernal M.D. 05/24/19 9:15 AM documented in this encounter Plan of Treatment Not on filedocumented as of this encounter Procedures Procedure Name Priority Date/Time Associated Diagnosis Comme nts CYTOLOGY NON-BUS OPERATOR Routine 05/24/2019 9:09 AM Cancer Bladder Res ults for this CDT Personal History procedure a re in the results section. documented in this encounter Results Cytology Non-BUS OPERATOR (Scheduled) (11/18/2019 9:01 AM PSYCHOLOGIST INDUSTRIAL ORGANIZATIONAL) Component Value Ref Test Analysis Performed At [facility] gist Range Method Time Signature 11/19/2019 [facility] 10:23 AM PSYCHOLOGIST INDUSTRIAL ORGANIZATIONAL Fixative 50% REAGENT 11/19/2019 [facility] ALCOHOL 10:23 AM PSYCHOLOGIST INDUSTRIAL ORGANIZATIONAL Report Brady Goodrich MD 11/19/2019 [facility] electronically I verify that I have examined all relevant slides/ma terials 10:23 AM signed by for the specimen(s) and rendered or confirmed the diagnosis. PSYCHOLOGIST INDUSTRIAL ORGANIZATIONAL Gross Description Received 80 11/19/2019 [facility] ml of cloudy 10:23 AM yellow PSYCHOLOGIST INDUSTRIAL ORGANIZATIONAL alcohol fixed fluid. Collection VOIDED 11/19/2019 [facility] Procedure 10:23 AM PSYCHOLOGIST INDUSTRIAL ORGANIZATIONAL Source A. Urine, 11/19/2019 [facility] Clean Catch, 10:23 AM voided PSYCHOLOGIST INDUSTRIAL ORGANIZATIONAL Clinical History Z85.51 11/19/2019 [facility] 10:23 AM PSYCHOLOGIST INDUSTRIAL ORGANIZATIONAL Interpretation A. 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 10:23 A M PSYCHOLOGIST INDUSTRIAL ORGANIZATIONAL Specimen Anatomical Collection Method Collection Time Receive d Time (Source) Location / / Volume Laterality Varies (Urine, 11/18/2019 9:01 AM 020 7:13 Clean Catch) PSYCHOLOGIST INDUSTRIAL ORGANIZATIONAL AM PSYCHOLOGIST INDUSTRIAL ORGANIZATIONAL Narrative This result has an attachment that is no t available. Prasanna Bernal M.D. LAB SURG PATH ORDERABLES Performing Organization Address City/State/ZIP Code Phon e Number [facility]- [address] [place] [address] [place] [address] [facility] Cytology [address] [facility] Cytology Non-BUS OPERATOR (05/24/2019 9:09 AM CDT) Component Value Ref Test Analysis Performed At [facility] gist Range Method Time Signature Gross Description Received 100 05/25/2019 ml of yellow 10:32 AM alcohol fixed CDT fluid Collection void 05/25/2019 Procedure 10:32 AM CDT Fixative 50% REAGENT 05/25/2019 ALCOHOL 10:32 AM CDT Source A. Urine, 05/25/2019 voided 10:32 AM CDT Clinical History bladder 05/25/2019 cancer 10:32 AM CDT Report Jose Khan MD 05/25/2019 electronically I verify that I have examined all relevant slides/ma terials 10:32 AM signed by for the specimen(s) and rendered or confirmed the diagnosis. CDT 05/25/2019 10:32 AM CDT Interpretation A. Urine, voided (cytospin): Negative for High-Grade 05/25/2019 Urothelial Carcinoma. 10:32 AM CDT Specimen Anatomical Collection Method Collection Time Receive d Time (Source) Location / / Volume Laterality Varies 05/24/2019 9:09 AM 9 7:22 CDT AM CDT Narrative This result has an attachment that is no t available. Prasanna Bernal M.D. LAB SURG PATH ORDERABLES Performing Organization Address City/State/ZIP Code Phon e Number [facility] [address] [place] [address] CYTOLOGY documented in this encounter Visit Diagnoses Diagnosis Personal History Of Malignant Neoplasm O f Bladder documented in this encounter Additional Health Concerns Assessment Noted Time PHQ-9 Depression Total Score: 18 04/28/2018 11:27 AM C DT documented as of this encounter Care Teams Veterinarian Assistant Relationship Specialty Start Date End Date Ewa Alejandro M.D. PCP - General 03/13/17 01/09/[address] [place] [phone] documented as of this encounter
--- OUTSIDE RECORDS SUMMARY | 2022-05-21 11:32 | XMS_ITS | Encounter Summary ---
:1945 Author Organization [facility] Address [address] [place] [address] Care Team Providers Name Role Phone Ewa Alejandro M.D. Primary Care Provider [phone] Reason for Referral Outpatient (Routine) - Closed Specialty Diagnoses / Procedures Referred By Contact Madelaine castillo To Contact Nephrology and Rob Cantu [facility] [place] [address] [place] [address] Referral ID Status Reason Start Date Expiration Date Visits Requ ested Visits Authorized [id number] Closed 12/24/2018 12/24/2019 1 1 Reason for Visit Outpatient (Routine) - Closed Specialty Diagnoses / Procedures Referred By Contact Madelaine castillo To Contact Nephrology and Rob Cantu [place] [facility] [place] [address] [place] [address] Referral ID Status Reason Start Date Expiration Date Visits Requ ested Visits Authorized [id number] Closed 11/24/2018 11/24/2019 1 1 Encounter Details Date Type Department Care Team Description 12/24/2018 Office Visit Division of Nephrology Rob Cantu Hyp ertension Essential and Hypertension in [place] Primary (Primary Dx) [place], [place] [address] [facility] [address] [place] [address] [phone] Social History Tobacco Use Types Packs/Day Years [...] do you attend rastafari or Never 2021 jewish services? Do you [...] or slept in a long-term (including now)? Sex Assigned at Date Recorded Male 05/21/2018 2:34 PM CDT documented as of this encounter Progress Notes Rob Cantu M.D. - 12/24/2018 3:45 PM CDT SUBJECTIVE REASON FOR VISIT Patient returns for blood pressure recheck HISTORY OF PRESENT ILLNESS Mr. Costa returns for blood pressure follow-up. He is tolerating his current antihypertensive medication without complaint. OBJECTIVE DIAGNOSTICS 6 hr ambulatory BP reveals average blood pressure 148/66 mm Hg. ASSESSMENT / PLAN #1 Hypertension Essential Primary I advised an initial goal of less than 140 mm Hg systolic. He agrees. I have encouraged him to walk at least 30 minutes daily. I have sent a prescription for of diltiazem 120 mg to take 1 daily. He didhave side effects related to amlodipine but these were somewhat unusual. He will let me know if he has any perceived side effects to this medication I will see him in 4 weeks for blood pressure recheck. Rob Cantu M.D. documented in this encounter Plan of Treatment Scheduled Referrals Name Type Priority Associated Order Schedule Diagnoses Nephrology and Outpatient Referral Routine Expect ed: Hypertension office 01/27/20 19 visit (clinic) (Approximate) , Expires: 12/24/2021 documented as of this encounter Visit Diagnoses Diagnosis Hypertension Essential Primary - Primary documented in this encounter Additional Health Concerns Assessment Noted Time PHQ-9 Depression Total Score: 18 04/28/2018 11:27 AM C DT documented as of this encounter Care Teams Cluster Bore Operator Relationship Specialty Start Date End Date Ewa Alejandro M.D. PCP - General 03/13/17 01/09/20 [address], [place] [address] documented as of this encounter
--- OUTSIDE RECORDS SUMMARY | 2022-05-21 11:32 | XMS_ITS | Encounter Summary ---
:1945 Author Organization [facility] Address [address] [place] [address] Care Team Providers Name Role Phone Ewa Alejandro M.D. 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 [address] [place] [address] Referral ID Status Reason Start Date Expiration Date Visits V isits Requested Authorized [id number] Closed Specialty 11/16/2018 11/16/2019 1 1 Services Required DCAST ENGINEER Encounter Details Date Type Department Care Team Description 11/16/2018 Orders Only [facility] ertensive Heart And Medicine, Ewa Barclay, Chronic Kidney Disease Clinic, in [place] Without Heart Failure [place] [address] And With Stage 2 (Mild) [address] [place], [place] Chronic Kidney Disease [place] [address] (Primary Dx) [address] Social History Tobacco Use Types Packs/Day [...] do you attend hoahaoism or Never 2021 hindu services? Do you [...] or slept in a jail (including now)? Sex Assigned at Date Recorded Male 05/21/2018 2:34 PM CDT documented as of this encounter Plan of Treatment Scheduled Referrals Name Type Priority Associated Diagnoses Order S hollie Nephrology and Outpatient Referral Routine Hypertensive Heart Expected: Hypertension - And Chronic Kidney 019, General consult Disease Without Expires: (clinic) Heart Failure And 11/16/2021 With Stage 2 (Mild) Chronic Kidney Disease documented as of this encounter Visit Diagnoses Diagnosis Hypertensive Heart And Chronic Kidney Di sease Without Heart Failure And With Stage 2 (Mild) Chronic Kidney Disease - Primary documented in this encounter Additional Health Concerns Assessment Noted Time PHQ-9 Depression Total Score: 18 04/28/2018 11:27 AM C DT documented as of this encounter Care Teams Facility Maintenance Manager Relationship Specialty Start Date End Date Ewa Alejandro M.D. PCP - General 03/13/17 01/09/[address] [phone] documented as of this encounter
--- OUTSIDE RECORDS SUMMARY | 2022-05-21 11:32 | XMS_ITS | Encounter Summary ---
:1945 Author Organization [facility] Address [address] [place] [address] Care Team Providers Name Role Phone Ewa Alejandro M.D. Primary Care Provider [phone] Encounter Details Date Type Department Care Team Description 05/17/2019 Hospital Encounter Department of [facility] Laboratory Medicine [place] Personal History in [address], [place] [phone] Social History Tobacco Use [...] do you attend protestant or Never 2021 hindu services? Do you [...] completed or the highest Martin, MEd, BUSINESS SOLUTION ANALYST, [place]) degree you have received? Sex [...] SYRINGE-NEEDLE,INSULIN, 0 0.5 ML (INSULIN SYRINGE MISC) [id number] Take 2 capsules by 240 capsule 3 [...] 05/01/2020 reader (FREESTYLE ILEANA 14 DAY READER) [facility] flash glucose sensor Use as directed. 6 [...] Priority Date/Time Associated Diagnosis Comme nts CYTOLOGY NON-HEEL ATTACHER Routine 05/17/2019 8:53 AM Cancer Bladder Res ults for this (SCHEDULED) CDT Personal History procedure a re in the results section. documented in this encounter Results (ABNORMAL) Cytology Non-HEEL ATTACHER (Scheduled) (05/17/2019 8:53 AM CDT) Component Value Ref Test Analysis Performed At [facility] gist Range Method Time Signature Gross Description Received 100 05/18/2019 ml of yellow 10:42 AM alcohol fixed CDT fluid (A) Collection Voided (A) 05/18/2019 Procedure 10:42 AM CDT Fixative 50% Reagent 05/18/2019 Alcohol (A) 10:42 AM CDT Source A. Urine, 05/18/2019 Clean Catch, 10:42 AM voided (A) CDT Clinical History Z85.51 (A) 05/18/2019 10:42 AM CDT Report Brady Goodrich MD 05/18/2019 electronically I verify that [...] City/State/ZIP Code Phon e Number [facility] [address] [place] [address] CYTOLOGY documented in this encounter Visit Diagnoses Diagnosis Personal History Of Malignant Neoplasm O f Bladder documented in this encounter Additional Health Concerns Assessment Noted Time PHQ-9 Depression Total Score: 18 04/28/2018 11:27 AM C DT documented as of this encounter Care Teams Pilot Manager Relationship Specialty Start Date End Date Ewa Alejandro M.D. PCP - General 03/13/17 01/09/[address] [phone] documented as of this encounter
--- OUTSIDE RECORDS SUMMARY | 2022-05-21 11:33 | XMS_ITS | Encounter Summary ---
:1945 Author Organization [facility] Address [address] [place] [address] Care Team Providers Name Role Phone Ewa Alejandro M.D. Primary Care Provider Encounter Details Date Type Department Care Team Description 07/14/2018 Hospital Encounter Department of Jamaal Zurita ; Laboratory Medicine [facility] Stein Dilation Pancreatic Duct (HCC); in [place], [address] [place] [address] Stone Pancreatic Duct (HCC); [place], [place] Pancreatitis Chronic (HCC) [address] [address] [place], [place] [phone] [address] (Work) [phone] Social History Tobacco Use Types Packs/Day Years [...] do you attend spiritism or Never 2021 pentecostalism services? Do you [...] or slept in a fdc (including now)? Sex Assigned at Date Recorded Male 05/21/2018 2:34 PM CDT documented as of this encounter Medications at Time of Discharge Medication Sig Dispensed Refills Start Date End Date atorvastatin (for_LIPITOR) Take 80 mg by mouth 0 80 mg tablet daily. blood sugar diagnostic Reports checking 0 [...] times daily SYRINGE-NEEDLE,INSULIN,0.5 0 ML (INSULIN SYRINGE MISC) albuterol (for_ACCUNEB) Take 2.5 mg by 0 05/25/2020 2.5 mg /3 mL nebulizer nebulization every solution 6 (six) hours as needed for wheezing or shortness of breath. albuterol sulfate 90 Inhale 2 puffs 0 08/19/2016 09/13/2020 mcg/actuation aerosol every 6 (six) hours powdr breath activated as needed. budesonide-formoterol Inhale 2 puffs as 0 013 12/16/2019 (for_SYMBICORT) 160-4.5 needed. mcg/actuation inhaler diphenoxylate-atropine Take 1 tablet by 0 08/19/2018 (LOMOTIL) 2.5-0.025 mg per mouth 4 (four) tablet times a day as needed for diarrhea. gemfibroziL (LOPID) 600 mg Take 1 tablet by 0 11/06/2021 tablet mouth. hydroCHLOROthiazide Take 1 tablet (25 90 tablet 3 8 11/24/2018 (HYDRODIURIL) 25 mg tablet mg total) by mouth daily. insulin aspart (NovoLOG) Inject 20 Units 0 201409/18/2018 100 unit/mL injection under the skin 3 (three) times a day before meals. insulin glargine (LANTUS) Inject 20 Units 0 01/3105/06/2020 100 unit/mL injection under the skin at bedtime. insulin NPH and regular LW Addl 0 11/15/2008 0 05/04/2020 human (HumuLIN 70/30 U-100 Instr:Indicated KwikPen) 100 unit/mL for: Diabetes (70-30) injection lisinopril Take 1 tablet by [...] losartan (for_COZAAR) 100 Take 50 mg by mouth 0 0 10/13/2013 05/06/2020 mg tablet daily. metFORMIN (GLUMETZA) 1,000 Take 1 tablet [...] Name Priority Date/Time Associated Diagnosis Comme nts FAT, F Routine 07/18/2018 11:07 AM Results for this CDT procedure are i n the results section. BILE ACIDS, BOWEL Routine 07/13/2018 2:30 PM Diarrhea Results for this DYSFUNC, 48 HR, F CDT Dilation Pancreatic pro cedure are in Duct (HCC) the results Stone Pancreatic section. Duct (HCC) Pancreatitis Chronic (HCC) documented in this encounter Results (ABNORMAL) Fat, Feces (07/18/2018 11:07 AM CDT) Analysis Performed At Patho logist Time Signature Total Weight 280 g 07/18/2018 [facility] 11:07 AM CDT [facility] Duration 48 h 07/18/2018 [facility] 11:07 AM CDT [facility] Total Fat/24 10 (H) 2 - 7 g/24 07/18/2018 [facility] Hr h 12:23 PM CDT [facility] Comment: ----ADDITIONAL INFORMATION---- This test was developed and its performa nce characteristics determined by [facility] in a manner co nsistent with CLIA requirements. This test has not bee n cleared or approved by the U.S. Food and Drug Admin istration. Specimen Anatomical Collection Method Collection Time Receive d Time (Source) Location / / Volume Laterality Stool 07/18/2018 11:07 07/18/2018 AM CDT 11:07 AM CDT Emil Zurita M.D. LAB BODY FLUIDS AND STOOLS O GERMAN Performing Organization Address City/State/ZIP Code Phon e Number [facility] - [address] [address] [facility] Bile Acids, Bowel Dysfunction, 48 Hour, Feces (07/13/2018 2:30 PM CDT) P athologist Signature Bile Acids, % 0.0 <=3.7 % 07/16/2018 [facility] CDCA + CA total 12:16 PM CDT [facility] Total Bile 138 <=2619 07/16/2018 [facility] Acids mcmol/48h 12:16 PM CDT [facility] Comment: ----ADDITIONAL INFORMATION---- This test was developed and its performa nce characteristics determined by [facility] in a manner consistent with CLIA requirements. This test has not been cleared or approved by the U.S. Susana d and Drug Administration. Specimen Anatomical Collection Method Collection Time Receive d Time (Source) Location / / Volume Laterality Stool (Stool) 07/13/2018 2:30 PM 07/15/20 18 CDT 10:33 AM CDT Emil Zurita M.D. LAB BODY FLUIDS AND STOOLS Jason PORTER Performing Organization Address City/State/ZIP Code Phon e Number [facility] - [address] [place], [place] [address] [facility] documented in this encounter Visit Diagnoses Diagnosis Diarrhea Dilation Pancreatic Duct Stone Pancreatic Duct Pancreatitis Chronic (HCC) documented in this encounter Additional Health Concerns Assessment Noted Time PHQ-9 Depression Total Score: 18 04/28/2018 11:27 AM C DT documented as of this encounter Care Teams [employer] Truck Driver Relationship Specialty Start Date End Date Ewa Alejandro M.D. PCP - General 03/13/17 01/09/[address] [place] [phone] documented as of this encounter
--- OUTSIDE RECORDS SUMMARY | 2022-05-21 11:33 | XMS_ITS | Encounter Summary ---
:1945 Author Organization [facility] [place] Address [address] [place] [address] Care Team Providers Name Role Phone Ewa Alejandro M.D. Primary Care Provider [phone] Reason for Referral Outpatient (Routine) - Closed Specialty Diagnoses / Procedures Referred By Contact Refer red To Contact Endocrinology Diagnoses Pancreatitis Chronic (HCC) Emil Zurita M.D. 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 [place] [address] [place] [address] Referral ID Status Reason Start Date Expiration Date Visits Requ ested Visits Authorized [id number] Closed 07/10/2018 07/10/2019 1 1 Encounter Details Date Type Department Care Team Description 08/19/2018 Office Visit Division of Parminder, Pancreatitis Ch ronic (HCC) (Primary Dx); Gastroenterology in [place] Stein Diarrhea; [place], [place] [address] [facility] Dilation Pancreatic Duct (HCC); [address] [place], [place] Stone Pancreatic Duct (HCC) [place] [phone] [phone] Social History Tobacco Use Types Packs/Day Years [...] do you attend yazidi or Never 2021 pentecostalism services? Do you [...] encounter Progress Notes Emil Zurita M.D. - 08/19/2018 4:00 PM CST Gastroenterology Subsequent Visit Note #1 Chronic pancreatitis #2 Diabetes mellitus, long-standing #3 Pancreatic duct calculi #4 Colon polyp, histology pending #5 Mildly elevated fecal fat with intermittent diarrhea Met with Mr. Costa and his family and discussed test results. Abdominal CT and EUS was suggestive of chronic pancreatitis. There was no evidence of pancreatic mass. Small bowel biopsies, aspirate and colon biopsies were obtained for further evaluation of diarrhea, results are pending currently. I recommended starting on a small dose of PERT with meals. He will call in 4 weeks with symptom update. IfGI symptoms improve on PERT he will continue. Also recommended taking Vit D 1000 IU daily. Will refer him to Diabetes Clinic as his glycemic control is sub optimal. Will communicate pending biopsy results when finalized. I reviewed his abdominal CT scan images with him in the room and demonstrated thepancreatic duct stone. Given his lack of symptoms of abdominal pain or weight loss the benefits of intervening on the large pancreatic duct stone does not appear to outweigh the risks. Management of this stone will need extracorporeal shockwave lithotripsy and likely multiple ERCP ductal clearance procedures. We will continue to monitor symptoms on pancreatic enzyme replacement therapy and if his GI symptoms worsen we will reconsider intervening on the PD stones. He verbalized understanding and was in agreement. Multiple questions answered. 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 documented in this encounter Plan of Treatment Scheduled Referrals Name Type Priority Associated Diagnoses Order [facility]ology - Outpatient Routine Pancreatitis Chronic Expe cted: Diabetes consult Referral (HCC) 08/19/2018 (clinic) (Approximate), Expires: 08/19/2021 documented as of this encounter Visit Diagnoses Diagnosis Pancreatitis Chronic (HCC) - Primary Diarrhea Dilation Pancreatic Duct Stone Pancreatic Duct documented in this encounter Additional Health Concerns Assessment Noted Time PHQ-9 Depression Total Score: 18 04/28/2018 11:27 AM C DT documented as of this encounter Care Teams Nutritionist Public Health Relationship Specialty Start Date End Date Ewa Alejandro M.D. PCP - General 03/13/17 01/09/[address] [phone] documented as of this encounter
--- OUTSIDE RECORDS SUMMARY | 2022-05-21 11:33 | XMS_ITS | Encounter Summary ---
:1945 Author Organization [facility] Address [address] [place] [address] Care Team Providers Name Role Phone Ewa Alejandro M.D. Primary Care Provider [phone] Reason for Referral Outpatient (Routine) - Closed Specialty Diagnoses / Referred By Referred To Cont act Procedures Contact Gastroenterology and Emil Zurita [facility] Hepatology [place] [address] [place] [address] Referral ID Status Reason Start Date Expiration Date Visits Requ ested Visits Authorized [id number] Closed 07/27/2018 07/27/2019 1 1 Scheduling Instructions Return after testing. Comprehensive denzel ent Outpatient (Routine) - Closed Specialty Diagnoses / Procedures Referred By Contact Refer red To Contact Diagnoses Diarrhea Persistent Unexplained Emil Zurita M.D. [facility] Procedures Colonoscopy [address] [place] [address] Referral ID Status Reason Start Date Expiration Date Visits Requ ested Visits Authorized [id number] Closed 07/27/2018 07/27/2019 1 1 Outpatient (Routine) - Closed Specialty Diagnoses / Procedures Referred By Contact Refer red To Contact Diagnoses Diarrhea Persistent Unexplained Emil Zurita M.D. [facility] Procedures EUS [address] [place] [address] Referral ID Status Reason Start Date Expiration Date Visits Requ ested Visits Authorized [id number] Closed 07/27/2018 07/27/2019 1 1 Outpatient (Routine) - Closed Specialty Diagnoses / Procedures Referred By Contact Refer red To Contact Diagnoses Diarrhea Persistent Unexplained Emil Zurita M.D. [facility] Procedures EGD [address] [place] [address] Referral ID Status Reason Start Date Expiration Date Visits Requ ested Visits Authorized [id number] Closed 07/27/2018 07/27/2019 1 1 Reason for Visit Reason Comments Pancreas Results Outside CT reviewed, recomen dations Encounter Details Date Type Department Care Team Description 07/27/2018 Clinical Division of Tomasa Alex Pancreas; Michael alegre Communication Gastroenterology in [place], R.N. (Outside CT [place], [place] [address] reviewed, [address] [facility] recomendations ) [facility], [address] [place] [phone] Social History Tobacco Use Types Packs/Day Years [...] slept in a nursing home (including now)? Sex Assigned at Date Recorded Male 05/21/2018 2:34 PM CDT documented as of this encounter Miscellaneous Notes Telephone Encounter - Tomasa Alex R.N. - 07/27/2018 9:47 AM CDT PLAN Nurse phoned patient and provided outside CT results after DR. Zurita reviewed them. Recommendations were provided and orders were forwarded to him per his request. He verbalizes he is a Disabled Vetand sees his provider this week and plans to discuss the need for Moh's surgery. He also verbalized he would like to have his appointments mailed to him he can't find them. Name of test result(s): Outside CT Test result information: Changes of chronic calcific pancreatitis and mild pancreatic ductal dilatation. No clear explanation of diarrhea on stool exam. Recommendations were provided: EGD with EUS for small bowel biopsies and to rule out underlying pancreatic neoplasm. Colonoscopy with TI exam and random colon biopsies for microscopic colitis. Also on T enlarged prostate was noted. He was recommendedto discuss next steps for further management of that with his PCP. He did state he had bladder cancer. He also stated that he wants Dr. Zurita to know his diarrhea is better but waxes and wanes over the last three months. He states he has diarrhea for 1-2 days and then has fairly formed stool but overall not feeling discomfort. His vomiting has stopped. Ordered by: Dr. Zurita Date performed: Outside CT dated 04/22/2018. Disposition/Recommendation: self-care appropriate at this time 07/27/2018 Education: patient/caller able to teach back Caller agreeable to plan of care: yes The following references were used: provider Dr. Zurita documented in this encounter Plan of Treatment Scheduled Orders Name Type Priority Associated Diagnoses Order S chedule EGD GI Routine Diarrhea Persistent Unexplai darnell Expected: 07/27/2018 (Approximate), Expires: 07/27/2021 Scheduled Referrals Name Type Priority Associated Order Schedule Diagnoses Gastroenterology and Outpatient Routine Expecte d: Hepatology office visit Referral 07/01 (clinic) (Approximate), Expires: 07/27/2021 documented as of this encounter Visit Diagnoses Diagnosis Diarrhea Persistent Unexplained - Primar y documented in this encounter Additional Health Concerns Assessment Noted Time PHQ-9 Depression Total Score: 18 04/28/2018 11:27 AM C DT documented as of this encounter Care Teams Ict Educator Relationship Specialty Start Date End Date Ewa Alejandro M.D. PCP - General 03/13/17 01/09/[address] [place] [phone] documented as of this encounter
--- OUTSIDE RECORDS SUMMARY | 2022-05-21 11:33 | XMS_ITS | Encounter Summary ---
:1945 Author Organization [facility] Address [address] [place] [address] Care Team Providers Name Role Phone Ewa Alejandro M.D. Primary Care Provider [phone] Encounter Details Date Type Department Care Team Description 09/21/2018 Documentation Division of Gastroenterology [facility] [place] in [facility] cam[place] [address] [place] [phone] Social History Tobacco Use Types Packs/Day Years [...] do you attend synagogue or Never 2021 rastafarian services? Do you [...] documented as of this encounter Care Teams Dining Room Manager Relationship Specialty Start Date End Date Ewa Alejandro M.D. PCP - General 03/13/17 01/09/20 [address], [place] [address] documented as of this encounter
--- OUTSIDE RECORDS SUMMARY | 2022-05-21 11:33 | XMS_ITS | Encounter Summary ---
:1945 Author Organization [facility] Address [address] [place] [address] Care Team Providers Name Role Phone Ewa Alejandro M.D. Primary Care Provider [phone] Reason for Referral Outpatient (Routine) - Closed Specialty Diagnoses / Procedures Referred By Contact Refer red To Contact Diagnoses Diarrhea Persistent Unexplained Emil Zurita M.D. [facility] Procedures Colonoscopy [address] [place] [address] Referral ID Status Reason Start Date Expiration Date Visits Requ ested Visits Authorized [id number] Closed 07/27/2018 07/27/2019 1 1 L SEWER Outpatient (Routine) - Closed Specialty Diagnoses / Procedures Referred By Contact Refer red To Contact Diagnoses Diarrhea Persistent Unexplained Emil Zurita M.D. [facility] Procedures EUS [address] [place] [address] Referral ID Status Reason Start Date Expiration Date Visits Requ ested Visits Authorized [id number] Closed 07/27/2018 07/27/2019 1 1 L SEWER Outpatient (Routine) - Closed Specialty Diagnoses / Procedures Referred By Contact Refer red To Contact Diagnoses Diarrhea Persistent Unexplained Emil Zurita M.D. [facility] Procedures EGD [address] [place] [address] Referral ID Status Reason Start Date Expiration Date Visits Requ ested Visits Authorized [id number] Closed 07/27/2018 07/27/2019 1 1 L SEWER Reason for Visit Outpatient (Routine) - Closed Specialty Diagnoses / Procedures Referred By Contact Refer red To Contact Diagnoses Diarrhea Persistent Unexplained Emil Zurita M.D. [facility] Procedures EGD [address] [place] [address] Referral ID Status Reason Start Date Expiration Date Visits Requ ested Visits Authorized [id number] Closed 07/27/2018 07/27/2019 1 1 Encounter Details Date Type Department Care Team Description 08/19/2018 Hospital Division of Jeovany Zurita M.D. [address] [place] [phone] Diarrhea Encounter Gastroenterology in [place] Jenkins W, OPERATIONS MANAGER/COORDINATOR, ACCOUNT DEVELOPER, DNAP [address] [place] [phone] Persistent [place], [place] Unexplained [address] [place] [address] Social History Tobacco Use Types Packs/Day [...] do you attend restoration or Never 2021 quaker services? Do you [...] Sign Reading Time Taken Comments Blood Pressure 138/71 08/19/2018 9:45 AM [facility] Pulse 77 08/19/2018 9:45 AM [facility] Temperature 36.6 ??C (97.9 ??F) 08/19/2018 9:28 AM [facility] Respiratory Rate 26 08/19/2018 9:45 AM [facility] Oxygen Saturation 96% 08/19/2018 9:45 AM [facility] Inhaled Oxygen Concentration - - Weight 103 kg (227 lb 11.2 oz) 08/19/2018 7:30 AM [facility] Height 188 cm (6' 2.02) 08/19/2018 7:30 AM [facility] Body Mass Index 29.22 08/19/2018 7:30 AM [facility] documented in this encounter Discharge Instructions AttachmentsThe following attachments cannot be sent through Care Everywhere. About Your Colonoscopy (Barbadian)About Your Upper Endoscopy (Barbadian)documented in this encounter Medications at Time of [...] 013 12/16/2019 (for_SYMBICORT) 160-4.5 needed. mcg/actuation inhaler gemfibroziL (LOPID) 600 mg Take 1 tablet [...] EGD GI Routine Diarrhea Persistent Unexplai darnell Once for 1 Occurrences starting 08/19/2018 unti l 08/19/2018 documented as of this encounter Procedures Procedure Name Priority Date/Time Associated Diagnosis Comme nts SURGICAL PATHOLOGY Routine 08/19/2018 8:25 AM Res ults for this [facility] procedure are i n the results section. BACTERIAL CULTURE, Routine 08/19/2018 8:22 AM Res ults for this AEROBIC + SUSC [facility] procedure are in the results section. BACTERIAL CULTURE, Routine 08/19/2018 8:22 AM Res ults for this ANAEROBIC + SUSC [facility] procedure a re in the results section. COLONOSCOPY Routine 08/19/2018 7:46 AM Diarrhea Persistent Re sults for this [facility] Unexplained procedure are i n the results section. COLONOSCOPY Routine 08/19/2018 7:46 AM Diarrhea Persistent [facility] Unexplained UPPER EUS Routine 08/19/2018 7:46 AM Diarrhea Persistent Re sults for this [facility] Unexplained procedure are i n the results section. ENDOSCOPIC Routine 08/19/2018 7:46 AM Diarrhea Persistent ULTRASOUND (EUS) [facility] Unexplained documented in this encounter Results Surgical Pathology (08/19/2018 8:25 AM [facility]EL [facility]) Component Value Ref Test Analysis Performed At [facility] Range Method Time Signature Gross Description A: ?? Received in formalin labeled with the patie nt's name, 08/21/2018 [facility] medical record number, and duodenum-second part duodenum 12:38 PM LABORATORIES - are seven pale samson-pink irregular soft tissue fragments, [facility] ranging from 0.1-0.4 cm in greatest dimension. Specimens CAMPUS are submitted en toto in cassette A1. Grossed by MILAN B: ?? Received in formalin labeled with the patient's name, medical record number, and ileum-terminal ileum are six pale samson-pink irregular soft tissue fragments, ranging from 0.2-0.8 cm in greatest dimension. Specimens are submitted en toto in cassette B1. ??Grossed by MILAN C: ?? Received in formalin labeled with the patient's name, medical record number, and colon-ascending colon are two pale samson irregular soft tissue fragments, 0.4 x 0.2 x 0.1 cm and 0.3 x 0.3 x 0.2 cm. Specimens are submitted en toto in cassette C1. Grossed by MILAN D: ?? Received in formalin labeled with the patient's name, medical record number, and colon-right colon are six pale samson-pink irregular soft tissue fragments, ranging from 0.1-0.7 cm in greatest dimension. Specimens are submitted en toto in cassette D1. Grossed by MILAN E: ?? Received in formalin labeled with the patient's name, medical record number, and colon-left colon are four pale samson-pink irregular soft tissue fragments, ranging from 0.3-0.6 cm in greatest dimension. Specimens are submitted en toto in cassette E1. Grossed by Eric Parish M.D. [phone] [facility] electronically I verify that I have examined all relevant slides/ma terials 12:38 PM LABORATORIES - signed by for the specimen(s) and rendered or confirmed the diagnosi s. [facility] 08/21/2018 [facility] 12:38 PM LABORATORIES - [facility] Interpretation FINAL DIAGNOSIS 08/21/2018 [facility] A. Duodenum, 2nd part duodenum, endoscopic biopsy: 12:38 PM LABORATORIES - Duodenal mucosa with healing erosion and foveolar [facility]. ??No evidence of celiac disease, Whipple's [facility]AMPUS disease, or Giardia identified. B. Terminal ileum, endoscopic biopsy: ??Normal ileal mucosa. No granulomas. ??No dysplasia. C. 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 No dysplasia. D. Colon, Right colon, endoscopic biopsy: ??Normal colonic mucosa. ??No evidence of collagenous or lymphocytic colitis. No dysplasia. E. Colon, Left colon, endoscopic biopsy: ??Normal colonic mucosa. ??No evidence of collagenous or lymphocytic colitis. No dysplasia. Specimen (Source) Anatomical Collection Method Collection Time Re ceived Time Location / / Volume Laterality Biopsy (Duodenum) 08/19/2018 8:25 AM [facility] Biopsy (Ileum) 08/19/2018 8:57 AM [facility] Polyp (Colon) 08/19/2018 9:01 AM [facility] Biopsy (Colon) 08/19/2018 9:04 AM [facility] Biopsy (Colon) 08/19/2018 9:05 AM [facility] Narrative This result has an attachment that is no t available. Dhiraj Albarran M.D. LAB SURG PATH ORDERABLES Performing Organization Address [facility]/ZIP Code Phon e Number [facility] LABORATORIES - [address] [address] 05 [facility] Bacterial Culture, Aerobic + Susc (08/19/2018 8:22 AM [facility]) [facility] Method Time Signature Bacterial No growth of 08/21/2018 [facility] Culture, aerobic gram 10:52 AM [facility] LABORATORIES - Aerobic + negative [facility] bacillus or CAMPUS yeast Specimen (Source) Anatomical Collection Method Collection Time Re ceived Time Location / / Volume Laterality Aspirate 08/19/2018 8:22 AM (Duodenum) [facility] Dhiraj Albarran M.D. LAB MICROBIOLOGY - GENERAL O RDERABLES Performing Organization Address City/[facility]/ZIP Code Phon e Number [facility] LABORATORIES - [address] [address] 05 [facility] Bacterial Culture, Anaerobic + Susc (08/19/2018 8:22 AM [facility]) [facility] Method Time Signature Bacterial Total intestinal surekha (anaerobic and/or aerobic) 08/21/2018 [facility] Culture, >100,000 cfu/mL 7:45 AM [facility] LABORATORIES - Anaerobic + [facility] CAMPUS Specimen (Source) Anatomical Collection Method Collection Time Re ceived Time Location / / Volume Laterality Aspirate 08/19/2018 8:22 AM (Duodenum) [facility] Dhiraj Albarran M.D. LAB MICROBIOLOGY - GENERAL O RDERABLES Performing Organization Address City/[facility]/ZIP [facility] Phon e Number [facility] LABORATORIES - [address] [address] 05 [facility] Colonoscopy (08/19/2018 7:46 AM [facility]) Specimen (Source) Anatomical Collection Method Collection Time Re ceived Time Location / / Volume Laterality 08/19/2018 7:46 AM [facility] 08[facility] 9:16 AM [facility] Post-op Diagnoses: ? - One 5 mm polyp in the ascending colon, removed with a cold snare. ? Resected and retrieved. ? - The examination was otherwise n ormal on direct and retroflexion views. ? - Biopsies were taken with a cold forceps for histology in the entire ? colon and in the terminal ileum. Narrative [facility] - 08/19/2018 9:16 AM [facility] Patient Name: Jonnathan Costa Date of : 1945 Age: 73 Gender: Male Procedure Date: 08/19/2018 Procedure: ? Colonosc opy Providers: ? Dhiraj Albarran MD Referring Provider: ?Emil solomon MD Pre-op Diagnoses: ?Diarrhea Recommendation: ? - Discharge patient to home. ? - Await pathology results. Findings: ? A 5 mm polyp was found in the asc ending colon. The polyp was ? semi-sessile. The polyp was remov ed with a cold snare. Resection and ? retrieval were complete. ? The exam was otherwise without ab normality on direct and retroflexion ? views. ? Biopsies were taken with a cold f orceps in the entire colon and in the ? terminal ileum for histology. Procedural Details: ? The patient was seen, [...] oxygen saturations ? were monitored continuously. The Pediatric Colonoscope was introduced ? through the anus and advanced to the the terminal ileum, with ? identification of the appendiceal orifice and IC valve. The colonoscopy ? was performed without difficulty. The patient tolerated the procedure ? well. The quality of the bowel pr eparation was adequate to identify ? polyps 6 mm and larger in size. Complications: ? No immedia te complications. Estimated Blood Loss: ? Estimated blood loss: none. Attending Participation: I personally pe rformed the entire procedure. Dhiraj Albarran MD 08/19/2018 9:16:05 AM This report has been signed electronical ly. Number of Addenda: 0 Note Initiated On: 08/19/2018 7:46 AM Emil Zurita M.D. GI PROCEDURE ORDERABLES Performing Organization Address City/State/ZIP Code Phon e Number [facility] NA Upper EUS (08/19/2018 7:46 AM [facility]) Specimen (Source) Anatomical Collection Method Collection Time Re ceived Time Location / / Volume Laterality 08/19/2018 7:46 AM [facility] Impressions [facility] - 08/19/2018 9:20 AM [facility] Post-op Diagnoses: ? - Normal esophagus. ? - Normal stomach. ? - Normal examined duodenum. Fine needle aspiration for fluid performed. ? Biopsied. ? - Pancreatic parenchymal abnormal ities consisting of calcifications, ? hyperechoic strands, hyperechoic foci, lobularity, shadowing foci and ? cysts were noted in the entire pa ncreas. ? - The pancreatic duct had a beade d endosonographic appearance, had a ? dilated endosonographic appearanc e, had intraductal stones, had an ? irregularly contoured endosonogra phic appearance, had a prominently ? branched endosonographic appearan ce and had a tortuous/ectatic ? appearance in the entire pancreas . ? - While there are features of chr onic pancreatitis, given the shape and ? overall morphology of the main du ct and side branches, the presence of ? IPMN should be considered. Howeve r, no papillary projection or classic ? intraductal features of IPMN were seen and there are no worrisome ? features, nor high rigk stigmata. Narrative [facility] - 08/19/2018 9:20 AM [facility] Patient Name: Jonnathan Costa Date of : 1945 Age: 73 Gender: Male Procedure Date: 08/19/2018 Procedure: ? Upper EU S Providers: ? Dhiraj Albarran MD Referring Provider: ?Emil solomon MD Pre-op Diagnoses: ?Abnormal ab dominal/pelvic CT scan Recommendation: ? - Await path results. Findings: ? Endoscopic Finding : ? The examined esophagus was endosc opically normal. ? The entire examined stomach was e ndoscopically normal. ? The examined duodenum was endosco pically normal. Diagnostic aspiration ? for fluid was performed. Aspirati on was done. Biopsies were taken with a ? cold forceps for histology. ? Endosonographic Finding : ? Pancreatic parenchymal abnormalit ies were noted in the entire pancreas. ? These consisted of calcifications , hyperechoic strands, hyperechoic ? foci, lobularity, shadowing foci and cysts. ? The pancreatic duct had a beaded endosonographic appearance, had a ? dilated endosonographic appearanc e, had intraductal stones, had an ? irregularly contoured endosonogra phic appearance, had a prominently ? branched endosonographic appearan ce and had a tortuous/ectatic ? appearance in the entire pancreas . ? - While there are features of chr onic pancreatitis, given the shape and ? overall morphology of the main du ct and side branches, the presence of ? IPMN should be considered. Howeve r, no papillary projection or classic ? intraductal features of IPMN were seen and there are no worrisome ? features, nor high rigk stigmata. Procedural Details: ? The patient was seen, [...] the se cond part of duodenum. The Gastroscope ? was introduced through the mouth, and advanced to the second part of ? duodenum. The upper EUS was accom plished without difficulty. The patient ? tolerated the procedure well. Complications: ? No immedia te complications. Estimated Blood Loss: ? Estimated blood loss: none. Attending Participation: I personally pe rformed the entire procedure. Dhiraj Albarran MD 08/19/2018 9:19:54 AM This report has been signed electronical ly. Number of Addenda: 0 Note Initiated On: 08/19/2018 7:46 AM Emil Zurita M.D. GI PROCEDURE ORDERABLES Performing Organization Address City/State/ZIP Code Phon e Number [facility] NA documented in this encounter Visit Diagnoses Diagnosis Diarrhea Persistent Unexplained documented in this encounter Additional Health Concerns Assessment Noted Time PHQ-9 Depression Total Score: 18 04/28/2018 11:27 AM C DT documented as of this encounter Care Teams Weaving Teacher Relationship Specialty Start Date End Date Ewa Alejandro M.D. PCP - General 03/13/17 01/09/20 [address] [place] [phone] documented as of this encounter
--- OUTSIDE RECORDS SUMMARY | 2022-05-21 11:33 | XMS_ITS | Encounter Summary ---
:1945 Author Organization [facility] Address [address] [place] [address] Care Team Providers Name Role Phone Ewa Alejandro M.D. Primary Care Provider [phone] Reason for Referral Outpatient (Routine) - Closed Specialty Diagnoses / Referred By Referred To Cont act Procedures Contact Gastroenterology and Emil Zurita [facility] Hepatology [address] [place] [address] Referral ID Status Reason Start Date Expiration Date Visits Requ ested Visits Authorized [id number] Closed 09/15/2018 09/15/2019 1 1 [facility] [place] MRI/CAT/PET Scan (Routine) - Closed Specialty Diagnoses / Procedures Referred By Contact Refer red To Contact Radiology Diagnoses Pancreatitis Chronic (HCC) Emil Zurita M.D. [facility] Procedures CT Abdomen Pelvis with IV Contrast AK CT ABD&PELVIS W CNTRST HC CT ABD&PELVIS W CNTRST AK CT ABD&PELVIS W CNTRST [address] [place], [place] [phone] Referral ID Status Reason Start Date Expiration Date Visits Requ ested Visits Authorized [id number] Closed 09/15/2018 09/15/2019 1 1 [facility] [place] Reason for Visit Outpatient (Routine) - Closed Specialty Diagnoses / Referred By Referred To Cont act Procedures Contact Gastroenterology and Emil [facility]ita [facility] Hepat[facility] [place] [address] [place] [address] Referral ID Status Reason Start Date Expiration Date Visits Requ ested Visits Authorized [id number] Closed 07/27/2018 07/27/2019 1 1 Encounter Details Date Type Department Care Team Description 09/15/2018 Office Visit Division of Greyson Zurita Ch Gastroenterology in [place] (HCC) (Primary Dx) [place], [place] [address] [facility] [address] [place] [phone] Social History Tobacco Use Types Packs/Day Years [...] do you attend pentecostalism or Never 2021 jain services? Do you [...] encounter Progress Notes Emil Zurita M.D. - 09/15/2018 11:00 AM CST Gastroenterology Subsequent Visit Note #1 Chronic pancreatitis #2 Long-standing diabetes mellitus Mr. Costa is here to discuss test results that were pending during last visit. I discussed biopsy results. FINAL DIAGNOSIS A. Duodenum, 2nd part duodenum, endoscopic biopsy: Duodenal mucosa with healing erosion and foveolar metaplasia. ??No evidence of celiac disease, Whipple's disease, or Giardia identified. B. Terminal ileum, endoscopic biopsy: ??Normal ileal mucosa. ??No granulomas. ??No dysplasia. C. 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 ??No dysplasia. D. Colon, Right colon, endoscopic biopsy: ??Normal colonic mucosa. ??No evidence of collagenous or lymphocytic colitis. ??No dysplasia. E. Colon, Left colon, endoscopic biopsy: ??Normal colonic mucosa. ??No evidence of collagenous or lymphocytic colitis. ??No dysplasia. His symptoms of diarrhea have resolved with PERT initiation. Although small bowel aspirates were positive for SIBO given symptom resolution he does not need to be treated with antibiotics. He questioned the etiology of chronic pancreatitis in his case it remains idiopathic and we discussed genetic testing but given advanced age the clinical utility of genetic testing is limited. He does not have any family history of pancreatitis. Emphasized the importance of good glycemic control and he is scheduled to meet with our endocrinologists soon. I recommended a followup visit in 1 year with labs and MRCPif he continues to remain symptoms free. If he develops any interval bouts of pancreatitis or progressive weight loss or abdominal pain we may need to intervene on the pancreatic duct stone. He verbalized understanding and was in agreement. He has my contact information. Multiple questions answered [facility] [place] documented in this encounter Plan of Treatment Scheduled Referrals Name Type Priority Associated Order Schedule Diagnoses Gastroenterology and Outpatient Routine Expecte d: Hepatology office visit Referral 08/29 (clinic) (Approximate), Expires: 09/15/2020 documented as of this encounter Results CT Abdomen Pelvis with IV Contrast (10/11/2019 11:05 AM [facility] [place]) Anatomical Region Laterality Modality Abdomen, Pelvis, Abdominal RST LOS, N/A Comp uted Tomography, Computed Abdominal ARZ LOS, Abdominal FLA LOS Logan ography Specimen (Source) Anatomical Collection Method Collection Time Re ceived Time Location / / Volume Laterality 10/11/2019 1:13 PM [facility] [place] Impressions 10/11/2019 1:24 PM [facility] [place] No significant change from the most recent prior study; chronic changes of pancreatitis. Narrative 10/11/2019 1:24 PM [facility] [place] EXAM: ??CT ABDOMEN PELVIS WITH IV CONTRAST [...] or negative. Stable benign-appearing cysts in both ki dneys. Mitral annular calcification. Procedure Note Alirio [...] or negative. Stable benign-appearing cysts in both ki dneys. Mitral annular calcification. IMPRESSION: No significant change from the most rece nt prior study; chronic changes of pancreatitis. Emil Zurita M.D. IMG CT PROCEDURES (ABNORMAL) 25-Hydroxyvitamin D2 and D3 (10/11/2019 9:52 AM [facility] [place]) athologist Signature 25-Hydroxy D2 <4.0 ng/mL 10/12/2019 SDSC 9:47 PM [facility] [place] 25-Hydroxy D3 15 ng/mL 10/12/2019 SDSC 9:47 PM [facility] [place] 25-Hydroxy D 15 (L) ng/mL 10/12/2019 SDSC Total 9:47 PM [facility] [place] Comment: Interpretation: 10-19 ng/mL (mild to mod erate deficiency) ----REFERENCE VALUE---- 25-HYDROXY D TOTAL (D2+D3) Optimum level s in the healthy population are 20-50, patients with bone disease may benefit from higher levels within this r stan. ----ADDITIONAL INFORMATION---- This test was developed and its performa nce characteristics determined by [facility] in a manner consistent with CLIA requirements. This test has not been cleared or approved by the [place] d and Drug Administration. Specimen Anatomical Collection Method Collection Time Receive d Time (Source) Location / / Volume Laterality Blood (Blood, 10/11/2019 9:52 AM 10/11/19 20 1:30 Venous) [facility] [place] PM [facility] [place] Emil Zurita M.D. LAB BLOOD ADD-ON Performing Organization Address City/State/ZIP Code Phon e Number [facility] [address] JAMIE Hale [place] [address] [facility] [place] [address] Laboratory Medicine and Pathology [address] [place] Vitamin A and Vitamin E (10/11/2019 9:52 AM [facility] [place]) athologist Signature Vitamin A 53.5 32.5 - 78.0 10/12/2019 SDS mcg/dL 10:37 PM [facility] [place] Comment: ----ADDITIONAL INFORMATION---- This test was developed and its performa nce characteristics determined by [facility] in a manner consistent with CLIA requirements. This test has not been cleared or approved by the [place] d and Drug Administration. A-Tocopherol, Vitamin E 10.9 5.5 - 17.0 mg/L 10/12/2019 1:35 PM [facility] [place] Specimen Anatomical Collection Method Collection Time Receive d Time (Source) Location / / Volume Laterality Blood (Blood, 10/11/2019 9:52 AM 10/11/19 4:31 Venous) [facility] [place] PM [facility] [place] Authorizing Provider Result Deloris Zurita M.D. LAB BLOOD NON ADD-ON Performing Organization Address City/[facility]/ZIP Code Phon e Number [facility] [address] [place], [place] [address] [facility] [place] [address] Laboratory Medicine and Pathology [address] [place] (ABNORMAL) Glucose, Fasting (10/11/2019 9:52 AM [facility] [place]) P athologist Signature Glucose, P 149 (H) 70 - 100 10/11/2019 DTL mg/dL 11:01 AM [facility] [place] Last Intake 17 hr 10/11/2019 DTL 10:14 AM [facility] [place] Specimen Anatomical Collection Method Collection Time Receive d Time (Source) Location / / Volume Laterality Blood (Blood, 10/11/2019 9:52 AM 10/11/19 Venous) [facility] [place] 10:14 AM [facility] [place] Authorizing Provider Result Deloris Zurita M.D. LAB BLOOD NON ADD-ON Performing Organization Address City/State/ZIP Code Phon e Number [facility] - [address] [place], [place] [address] [place] [address] Laboratories-[facility] [address] (ABNORMAL) Hemoglobin A1c (10/11/2019 9:52 AM [facility] [place]) Analysis Performed At Patho logist Time Signature Hemoglobin A1c, 10.2 (H) 4.0 - 5.6 10/11/2019 DTL B % 12:15 PM [facility] [place] Comment: Hemoglobin A1c values greater than or eq ual to 6.5 percent are diagnostic for diabetes mellitus. ?? Diagnosis should be confirmed by repeat testing. ??In diabet ic patients, HbA1c goals should be discussed with healthcar e provider. Specimen Anatomical Collection Method Collection Time Receive d Time (Source) Location / / Volume Laterality Blood (Blood, 10/11/2019 9:52 AM 10/11/19 Venous) [facility] [place] 10:14 AM [facility] [place] Emil Zurita M.D. LAB BLOOD ADD-ON Performing Organization Address City/[facility] Phon e Number [facility] - [address] [place], [place] [address] [place] [address] Laboratories-[address] (ABNORMAL) Creatinine with Estimated GFR (10/11/2019 9:52 AM [facility] [place]) athologist Signature Creatinine 1.26 0.74 - 10/11/2019 DTL 1.35 mg/dL 10:54 AM [facility] [place] eGFR-Non 55 (L) >=60 10/11/2019 DTL Black/ mL/min/BSA 10:54 AM [facility] [place] Cameroonian Comment: ----ADDITIONAL INFORMATION---- Estimated GFR calculated using the 2009 CKD_EPI creatinine equation. eGFR-Black/ 64 >=60 mL/min/BSA 2019 10:54 AM [facility] [place] DTL Comment: ----ADDITIONAL INFORMATION---- Estimated GFR calculated using the 2009 CKD_EPI creatinine equation. Specimen Anatomical Collection Method Collection Time Receive d Time (Source) Location / / Volume Laterality Blood (Blood, 10/11/2019 9:52 AM 10/11/19 Venous) [facility] [place] 10:14 AM [facility] [place] Emil Zurita M.D. LAB BLOOD ADD-ON Performing Organization Address City/[facility] Code Phon e Number [facility] - [address] [place], [place] [address] [place] [address] Laboratories-[address] documented in this encounter Visit Diagnoses Diagnosis Pancreatitis Chronic (HCC) - Primary Pancreatitis Chronic (HCC) documented in this encounter Additional Health Concerns Assessment Noted Time PHQ-9 Depression Total Score: 18 04/28/2018 11:27 AM C DT documented as of this encounter Care Teams Computer Publisher Relationship Specialty Start Date End Date Ewa Alejandro M.D. PCP - General 03/13/17 01/09/[address] [place] [phone] documented as of this encounter
--- OUTSIDE RECORDS SUMMARY | 2022-05-21 11:33 | XMS_ITS | Encounter Summary ---
:1945 Author Organization [facility] Address [address] [place] [address] Care Team Providers Name Role Phone Ewa Alejandro M.D. Primary Care Provider [phone] Encounter Details Date Type Department Care Team Description 08/10/2018 Orders Only Division of Gastroenterology in [place], [place] [address] [facility] [address] [place] [address] [place], [place] [phone] (Wo rk) Social History Tobacco Use Types [...] do you attend zoroastrian or Never 2021 mandaeism services? Do you [...] documented as of this encounter Care Teams Melt Helper Relationship Specialty Start Date End Date Ewa Alejandro M.D. PCP - General 03/13/17 01/09/[address], [place] [address] documented as of this encounter
--- OUTSIDE RECORDS SUMMARY | 2022-05-21 11:33 | XMS_ITS | Encounter Summary ---
:1945 Author Organization [facility] Address [address] [place] [address] Care Team Providers Name Role Phone Ewa Alejandro M.D. Primary Care Provider [phone] Reason for Referral Specialty Diagnoses / Procedures Referred By Contact Refer red To Contact Consuelo Tom M.D. [address] [address] Referral ID Status Reason Start Date Expiration Date Visits Requ ested Visits Authorized ILE CONVERSION MANAGER Reason for Visit Outpatient (Routine) - Closed Specialty Diagnoses / Procedures Referred By Contact Refer red To Contact Endocrinology Diagnoses Pancreatitis Chronic (HCC) Emil Zurita M.D. [address] [address] Referral ID Status Reason Start Date Expiration Date Visits Requ ested Visits Authorized [id number] Closed 08/19/2018 08/19/2019 1 1 Encounter Details Date Type Department Care Team Description 09/18/2018 Comprehensive Visit Division of Anjelica Bell APRN, C.N.P., M.S. [address] [place] [phone] Pancreatitis Chronic Endocrinology in Consuelo Tom M.D. [address] [place] [phone] (FORMERLY [facility]) [place], [place] [address] [place] [address] Social History Tobacco Use Types Packs/Day Years [...] or relatives? How often do you attend religious or Never 2021 yarsanism services? Do you belong to any clubs or No 10/09/2021 organizations such as religious groups, unions, fraternal or athletic groups, or [...] as of this encounter Patient Instructions Patient Consuelo Jarvis M.D. - 09/18/2018 2:30 PM CST The glucose target for Mr. Costa is between 100 to 140 mg/dL. For the time being we can started a glucose target to 100 to 180 mg/dL The purpose of basal insulin is to prevent blood sugar from increasing on its own, without food. Therefore the right dose of basal insulin (Lantus) is that dose which does not bring down blood glucose but does not allow to increase by it self. For example if the blood glucoses checked about 4 to 5 or more hours after the last meal/last snack and check next morning again these 2 numbers should be in similar range. That would be the right dose of Lantus. The primary purpose of rapid acting insulin (NovoLog) is to bring blood glucose back to where it started from about 4 to 5 hr after eating. In between the blood glucose will go up but if the dose is right for the amount of carbohydrates than about 5 hr later it would have come back to where it startedfrom. If Mr. Costa continues to need correction doses at any time point it a point that the previous timepoint was inadequately treated for example if he continues to need extra doses at lunch time and we should increase the dose for breakfast so he does not need extra doses at lunch time. In order to achieve all this we will need to check blood glucoses before breakfast before noon meal before evening meal and 4 to 5 hr after the last meal. At any time that we are checking blood glucosewe should be empty stomach for about 4 to 5 hr or more. Now this may not be possible all 4 time points every day but in order to find out what is a good dose this will be required. For NovoLog to work adequately it needs to be taken ideally 20 min or its worst immediately before eating. ILE CONVERSION MANAGER documented in this encounter Consult Notes Consuelo Tom M.D. - 09/18/2018 2:30 PM CST ENDOCRINOLOGY, METABOLISM, DIABETES AND NUTRITION Diabetes Consult Note REFERRAL Emil Zurita M.D. DEMOGRAPHIC INFORMATION Patient Name: Jonnathan Costa Age/ Sex: 73 y.o. male Date of : 1945 Address: [address] [place] [phone] Service Date/ Time: 09/18/2018 14:12 Recreational Resort Manager: Consuelo Tom M.D. SUBJECTIVE CHIEF COMPLAINT/ PURPOSE OF VISIT Jonnathan Costa is a 73 y.o. male who presents for evaluation of No chief complaint on file. HISTORY OF PRESENT ILLNESS Mr. Costa is a pleasant, 73 y.o.-year-old person who was diagnosed to have diabetes in 1990 when the patient had symptomatic with polys and the glucose was found to high: though the patient does not remember the number and the HbA1c was high, though the patient does not remember the number. Linked [employer]. Currently going through depression. With depression he is unable to exercise regularly. He has a diagnosis of chronic pancreatitis, with an acute exacerbation in March 2018 Initially, treated with Insulin and metfomin; he is on MDI for nearly 10 years. Victoza was started about 1 year ago and stopped after about 8 months (it was not helping with glucose control). NovoLog: based on the type of food would take a dose up to 20 units; if he checks blood glucose and blood glucoses high, about 300 then he would take 20 total units. He often checks his blood glucoses after he eats. Lantus is at 48 units for 1.5 years. Current Outpatient Prescriptions: ??? insulin aspart U-100 (NovoLOG FlexPen) 100 unit/mL injection, Inject 0-35 Units under the skin as needed (up to 6/d)., Disp: , Rfl: ??? albuterol (for_ACCUNEB) 2.5 mg /3 mL nebulizer solution, Take 2.5 mg by nebulization every 6 (six) hours as needed for wheezing or shortness of breath., Disp: , Rfl: ??? albuterol sulfate 90 mcg/actuation aerosol powdr breath activated, Inhale 2 puffs 2 (two) times a day. , Disp: , Rfl: ??? atorvastatin (for_LIPITOR) 80 mg tablet, Take 80 mg by mouth daily., Disp: , Rfl: ??? blood sugar diagnostic (ACCU-CHEK MIHAI PLUS TEST STRP) strips, , Disp: , Rfl: ??? budesonide-formoterol (for_SYMBICORT) 160-4.5 mcg/actuation inhaler, Inhale 2 puffs 2 (two) times a day. , Disp: , Rfl: ??? clopidogrel (PLAVIX) 75 mg tablet, Take 1 tablet by mouth daily., Disp: , Rfl: ??? escitalopram (LEXAPRO) 10 mg tablet, Take 1 tablet (10 mg total) by mouth daily., Disp: 30 tablet, Rfl: 11 ??? hydroCHLOROthiazide (HYDRODIURIL) 25 mg tablet, Take 1 tablet (25 mg total) by mouth daily., Disp: 90 tablet, Rfl: 3 ??? insulin glargine (LANTUS) 100 unit/mL injection, Inject 44 Units under the skin at bedtime., Disp: , Rfl: ??? obchmr-aynwwioo-zsegfim (CREON) 6,000-19,000-30,[address] capsule, Take 2 capsules by mouth as directed. 2 capsules with meals and 1 with snacks, Disp: 120 capsule, Rfl: 0 ??? LORazepam (ATIVAN) 0.5 mg tablet, Take 1 tablet (0.5 mg total) by mouth at bedtime as needed foranxiety for up to 15 days., Disp: 15 tablet, Rfl: 0 ??? losartan (for_COZAAR) 100 mg tablet, Take 1 tablet by mouth daily., Disp: , Rfl: ??? metFORMIN (GLUMETZA) 1,000 mg 24 hr tablet, Take 1 tablet (1,000 mg total) by mouth 2 (two) times a day with meals., Disp: 180 tablet, Rfl: 3 ??? omega-3 fatty acids-fish oil 300-1,000 mg capsule, Take 1 g by mouth daily., Disp: , Rfl: ??? PEN NEEDLE, DIABETIC MISC, Yani Fine 30 disposable needles. For use with Insulin Pens, 4 times daily, Disp: , Rfl: ??? SYRINGE-NEEDLE,INSULIN,0.5 ML (INSULIN SYRINGE MISC), , Disp: , Rfl: I reviewed the blood glucose log. He is checking blood glucose between 4 to 5 times, occasionally 6 times per day. Morning blood glucoses range from about 100 to 360 mg/dL, the higher numbers may well be after eating. Rest of the day blood glucose of varying from 100 to 450 mg/dL without any obvious trends. Hypoglycemia: none for a long time, now for the last about 2-3 weeks he has had two episodes. Never severe hypoglycemia. He has not had diarrhea from metformin. He also has not had nausea or vomiting with metformin. He has had GI complaints at the time and developed pancreatitis. Patient's lab reports: Lab Results Component Value Date HGBA1C 8.9 (H) 04/28/2018 HGBA1C 9.1 (H) 01/22/2018 HGBA1C 8.5 (H) 07/04/2017 Lab Results Component Value Date ALBCREARATIO 461 (H) 04/28/2018 LDLCALC CANCELED 04/28/2018 CREATININE 1.04 08/19/2018 Mr. Costa: last ophthalmic evaluation (Early Aug 2018) reportedly showed stable diabetic retinopathy; not known to have kidney disease, serum creatinine (Jul 2018) microalbumin (461 mg/g) was last checked in March 2018. Except for occasional tingling in itching he has not known to have peripheral neuropathy, does not have active symptoms from neuropathy and is not on medications for neuropathy. Mr. Costa is known to have had Stroke x2 in 2016. Not known to have coronary artery disease. The following portions of the patient's history were reviewed and updated as appropriate: allergies,current medications, family history, medical history, social history, surgical history, problem list. PAST MEDICAL/ SURGICAL HISTORY has a past medical history of Apnea Sleep Obstructive (06/18/2011); Asthma ([facility]) (10/16/2009); Cancer Bladder Personal History (05/09/2016); Depression Anxiety (11/18/2006); Diabetes Mellitus Type 2 With Diabetic Neuropathy ([facility]) (11/18/2006); Diverticulosis Colon (02/16/2018); Dysfunction Erectile (11/24/2006); Hernia Umbilical (05/24/2009); Hernia Ventral (06/29/2009); Hypercholesterolemia (09/23/2007); Hyperplasia Prostate Benign Localized Without Obstruction (11/18/2006); Hypertension EssentialPrimary (09/23/2007); Polyp Colon Adenomatous (07/03/2009); Polyp Colon Hyperplastic (07/03/2009); Rhinitis Chronic (12/31/2010); Smoking Tobacco Use Personal History (1979); and Stroke ([facility]) (09/17/2017). has a past surgical history that includes Tonsillectomy; Laser of prostate w/ green light pvp (08/28/2016); Colonoscopy (08/10/2013); Cystoscopy (05/22/2016); Colonoscopy (07/03/2009); Colonoscopy (11/2006); Vasectomy; Extraction Cataract with Insertion Intraocular Lens (Right, 08/2010); and Extraction Cataract with Insertion Intraocular Lens (Left, 04/2008). SOCIAL/ PERSONAL/ FAMILY HISTORY Family History Problem Relation Age of Onset ??? Hypertension Mother ??? Heart attack Father age 76 ??? Asthma Sister ??? Asthma Brother ??? Asthma Son Social History Social History ??? Marital status: Spouse name: N/A ??? Number of children: N/A ??? Years of education: N/A Occupational History ??? Retired Social History Main Topics ??? Smoking status: Former Smoker Quit date: 1979 ??? Smokeless tobacco: Never Used ??? Alcohol use No ??? Drug use: No ??? Sexual activity: Not on file Other Topics Concern ??? Not on file Social History Narrative ??? No narrative on file SYSTEMS REVIEW Constitutional: Positive for fatigue. Skin: Positive for change in mole or skin spot. Respiratory: Positive for wheezing. Gastrointestinal: Positive for diarrhea and vomiting. Hematologic: Positive for bruises or bleeds easily. Neurological: Positive for excessive daytime sleepiness. Psychiatric/Behavioral: Positive for excessive daytime sleepiness/tiredness. The following systems were negative: Eyes, ENT, CV, , Musculoskeletal OBJECTIVE There were no vitals taken for this visit. Constitutional: He is oriented to person, place, and time. He appears well- developed and well-nourished. No distress. Neck: No tracheal deviation present. No thyromegaly present. Neurological: He is alert and oriented to person, place, and time. Skin: Skin is warm and dry. No rash noted. He is not diaphoretic. No erythema. No pallor. Insulin lipodystrophy B/L Psychiatric: He has a normal mood and affect. His behavior is normal. Judgment and thought content normal. ASSESSMENT / PLAN #1 Pancreatitis Chronic (HCC) #2 Type 2 diabetes #3 Insulin lipodystrophy B/L We discussed about pathophysiology of diabetes. Diabetes cause essentially by in adequacy of insulin, certainly adequacy in relation to what the body needs. In presence of pancreatitis the best option would be to continue with basal bolus regimen with metformin. Once blood glucoses are reasonably wellcontrolled we can discuss further options of therapy, but this is not the right time. The glucose target for Mr. Costa is between 100 to 140 mg/dL. For the time being we can started a glucose target to 100 to 180 mg/dL The purpose of basal insulin is to prevent blood sugar from increasing on its own, without food. Therefore the right dose of basal insulin (Lantus) is that dose which does not bring down blood glucose but does not allow to increase by it self. For example if the blood glucoses checked about 4 to 5 or more hours after the last meal/last snack and check next morning again these 2 numbers should be in similar range. That would be the right dose of Lantus. The primary purpose of rapid acting insulin (NovoLog) is to bring blood glucose back to where it started from about 4 to 5 hr after eating. In between the blood glucose will go up but if the dose is right for the amount of carbohydrates than about 5 hr later it would have come back to where it startedfrom. If Mr. Costa continues to need correction doses at any time point it a point that the previous timepoint was inadequately treated for example if he continues to need extra doses at lunch time and we should increase the dose for breakfast so he does not need extra doses at lunch time. In order to achieve all this we will need to check blood glucoses before breakfast before noon meal before evening meal and 4 to 5 hr after the last meal. At any time that we are checking blood glucosewe should be empty stomach for about 4 to 5 hr or more. Now this may not be possible all 4 time points every day but in order to find out what is a good dose this will be required. For NovoLog to work adequately it needs to be taken ideally 20 min or its worst immediately before eating. We will proceed with this plan: 1. CDE education for Insulin Dose Adjustment +/- Diabetes Unit Training. 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 - 09/18/2018 2:30 PM TEXTILE CONVERSION MANAGER Addended by: CONSUELO TOM on: 09/18/2018 03:19 PM Modules accepted: Orders ILE CONVERSION MANAGER documented in this encounter Plan of Treatment Scheduled Referrals Name Type Priority Associated Diagnoses Order S chedule Nutrition - Outpatient Referral Routine Pancreatitis Chronic Expected: healthcare educator (HCC) 09/18/2018 visit (clinic) (Approximate) , Expires: 09/18/2019 documented as of this encounter Visit Diagnoses Diagnosis Pancreatitis Chronic (HCC) documented in this encounter Additional Health Concerns Assessment Noted Time PHQ-9 Depression Total Score: 18 04/28/2018 11:27 AM C DT documented as of this encounter Care Teams Satellite Television Installer Relationship Specialty Start Date End Date Ewa Alejandro M.D. PCP - General 03/13/17 01/09/[address] [place] [phone] documented as of this encounter
--- OUTSIDE RECORDS SUMMARY | 2022-05-21 11:33 | XMS_ITS | Encounter Summary ---
:1945 Author Organization [facility] Address [address] [place] [address] Care Team Providers Name Role Phone Ewa Alejandro M.D. Primary Care Provider [phone] Encounter Details Date Type Department Care Team Description 09/30/2018 Clinical Support Department of Nicholas Triana M .D. [address] [place] [phone] Pancreatitis Chronic Nutrition in Luciana Sterling R.N., [facility] [address] [place] [phone] ([facility]) [place], [place] [address] [place] [phone] Social History Tobacco Use Types Packs/Day Years [...] do you attend scientology or Never 2021 protestant services? Do you [...] slept in a senior living (including now)? Sex Assigned at Date Recorded Male 05/21/2018 2:34 PM CDT documented as of this encounter Progress Notes Luciana Sterling R.N. - 09/30/2018 11:00 AM CST SUBJECTIVE CHIEF COMPLAINT/REASON FOR VISIT Diabetes Education Type of Visit: Insulin - Follow-up (Dose Adjustment - MDI) Referred by: Nicholas Triana M.D. HISTORY OF PRESENT ILLNESS OBJECTIVE Pertinent Labs: Lab Results Component Value Date HGBA1C 8.9 (H) 04/28/2018 HGBA1C 9.1 (H) 01/22/2018 ASSESSMENT / PLAN Medication Changes: Yes. Begin by taking consistent amounts of insulin doses at bedtime, starting at10 units Lantus every night. Patient Education Provided: Yes, patient education was provided, refer to the patients education record. Diagnosis Plan 1. Pancreatitis Chronic (HCC) Nutrition - clinical staff educator visit (clinic) Patient arrives to diabetes education appointment. He did not have a log book to review and did notgive me a concrete number for his doses of insulin as he says they are never consistent. He mentionsthat since his provider appointment Sep 18 his insulin needs have decreased dramatically. We began to review principles of Multiple daily dose adjustment. We mostly focused on long acting insulin dose adjustment and will set up an appointment to see the educator to continue. We discussed starting witha dose of Lantus of 10 units and based on 3 days of data, making adjustments from there. He states he had been taking about 25 units Lantus every night, but experiencing hypoglycemia around 2-3 am in the last week. I provided him with a record log to record doses of insulin and blood sugar readings for the next week. Hypoglycemia signs/symptoms and treatment options reviewed in depth. Patient agrees to use orange juice or glucose tablets in the event of hypoglycemia from now on, instead of a bowl ofice cream. Will place a return education appointment order for him to schedule at will. Greater than 50% of time spent in counseling/coordination of care. Time spent with patient (minutes): 90 Minutes MATIC GLOVE FORMER documented in this encounter Miscellaneous Notes Addendum Note - Luciana Sterling R.N. - 09/30/2018 11:00 AM AUTOMATIC GLOVE FORMER Addended by: LUCIANA STERLING on: 09/30/2018 01:11 PM Modules accepted: Orders MATIC GLOVE FORMER Addendum Note - Luciana Sterling R.N. - 09/30/2018 11:00 AM AUTOMATIC GLOVE FORMER Addended by: LUCIANA STERLING on: 09/30/2018 02:02 PM Modules accepted: Orders MATIC GLOVE FORMER documented in this encounter Plan of Treatment Not on filedocumented as of this encounter Visit Diagnoses Diagnosis Pancreatitis Chronic (HCC) documented in this encounter Additional Health Concerns Assessment Noted Time PHQ-9 Depression Total Score: 18 04/28/2018 11:27 AM C DT documented as of this encounter Care Teams Wage Adjuster Relationship Specialty Start Date End Date Ewa Alejandro M.D. PCP - General 03/13/17 01/09/[address], [place] [address] documented as of this encounter
--- OUTSIDE RECORDS SUMMARY | 2022-05-21 11:33 | XMS_ITS | Encounter Summary ---
:1945 Author Organization [facility] Address [address] [place] [address] Care Team Providers Name Role Phone Ewa Alejandro M.D. Primary Care Provider [phone] Encounter Details Date Type Department Care Team Description 08/27/2018 Orders Only Division of Anjelica Bell, Diabetes Maria Ines litus Type Endocrinology in RAMP BOSS, C.N.P., 2 Hypergly cemia ([facility]) [facility] (Primary Dx) [address] [facility] [address] [place] [address] [place], [place] [phone] Social History Tobacco Use Types Packs/Day Years [...] do you attend voodoo or Never 2021 nondenominational services? Do you [...] Type 2 Hyperglycemia ( HCC) - Primary documented in this encounter Additional Health Concerns Assessment Noted Time PHQ-9 Depression Total Score: 18 04/28/2018 11:27 AM C DT documented as of this encounter Care Teams Plastic Parts Fabricator Trimmer Relationship Specialty Start Date End Date Ewa Alejandro M.D. PCP - General 03/13/17 01/09/[address] [place] [phone] documented as of this encounter
--- OUTSIDE RECORDS SUMMARY | 2022-05-21 11:33 | XMS_ITS | Encounter Summary ---
:1945 Author Organization [facility] Address [address] [place] [address] Care Team Providers Name Role Phone Ewa Alejandro M.D. Primary Care Provider Encounter Details Date Type Department Care Team Description 07/17/2018 Hospital Encounter Department of Jamaal Zurita ; Laboratory Medicine Rhoda Stein Dilation Pancreatic Duct (HCC); in [place], [address] [place] [address] Stone Pancreatic Duct (HCC); [place], [place] Pancreatitis Chronic (HCC) [address] [address] [place], [place] [phone] (Work) [phone] Social History Tobacco Use Types Packs/Day Years [...] do you attend taoism or Never 2021 jainism services? Do you [...] of this encounter Visit Diagnoses Diagnosis Diarrhea Dilation Pancreatic Duct Stone Pancreatic Duct Pancreatitis Chronic (HCC) documented in this encounter Additional Health Concerns Assessment Noted Time PHQ-9 Depression Total Score: 18 04/28/2018 11:27 AM C BOBO documented as of this encounter Care Teams Ux Ui Designer Relationship Specialty Start Date End Date Ewa Alejandro M.D. PCP - General 03/13/17 01/09/20 [address], [place] [address] documented as of this encounter
--- OUTSIDE RECORDS SUMMARY | 2022-05-21 11:33 | XMS_ITS | Encounter Summary ---
:1945 Author Organization [facility] Address [address] [place] [address] Care Team Providers Name Role Phone Ewa Alejandro M.D. Primary Care Provider [phone] Encounter Details Date Type Department Care Team Description 07/16/2018 Clinical Communication Division of Bobbi Preston Gastroenterology in [place], [place] [address] [facility] [address] [place] [phone] Social History Tobacco Use Types Packs/Day Years [...] do you attend restorationist or Never 2021 alevism services? Do you [...] documented as of this encounter Care Teams Student Development Dean Relationship Specialty Start Date End Date Ewa Alejandro M.D. PCP - General 03/13/17 01/09/[address] [phone] documented as of this encounter
--- OUTSIDE RECORDS SUMMARY | 2022-05-21 11:33 | XMS_ITS | Encounter Summary ---
:1945 Author Organization [facility] Address [address] [place] [address] Care Team Providers Name Role Phone Ewa Alejandro M.D. Primary Care Provider [phone] Encounter Details Date Type Department Care Team Description 09/21/2018 Documentation Division of Gastroenterology Ran Vilchis in [facility] [address] [place] [phone] Social History Tobacco Use Types Packs/Day Years [...] do you attend congregational or Never 2021 sikhism services? Do you [...] documented as of this encounter Care Teams Airport Sales Agent Relationship Specialty Start Date End Date Ewa Alejandro M.D. PCP - General 03/13/17 01/09/20 [address] [address] documented as of this encounter
--- OUTSIDE RECORDS SUMMARY | 2022-05-21 11:33 | XMS_ITS | Encounter Summary ---
:1945 Author Organization [facility] Address [address] [place] [address] Care Team Providers Name Role Phone Ewa Alejandro M.D. Primary Care Provider + [phone] Reason for Referral MRI/CAT/PET Scan (Routine) - Closed Specialty Diagnoses / Procedures Referred By Contact Refer red To Contact Radiology Diagnoses Diarrhea Dilation Pancreatic Duct Stone Pancreatic Duct Pancreatitis Chronic (HCC) Emil Zurita M.D. [place] Procedures CT Abdomen Pelvis with IV Contrast CT Abdomen Pelvis without and with IV Contrast [place] CT ABD&PELVIS WO/W CNTRST [facility] CT ABD&PELVIS WO/W [place] ABD&PELVIS WO/W [place] CT ABD&PELVIS W CNTRST HC CT ABD&PELVIS W CNTRST [address] [place] [address] ABD&[place] [address] Referral ID Status Reason Start Date Expiration Date Visits Requ ested Visits Authorized [id number] Closed 07/10/2018 07/10/2019 1 1 EE PLANTATION WORKER Reason for Visit MRI/CAT/PET Scan (Routine) - Closed Specialty Diagnoses / Procedures Referred By Contact Refer red To Contact Radiology Diagnoses Diarrhea Dilation Pancreatic Duct Stone Pancreatic Duct Pancreatitis Chronic (HCC) Emil Zurita M.D. [place] Procedures CT Abdomen Pelvis with IV Contrast CT Abdomen Pelvis without and with IV Contrast [place] CT ABD&PELVIS WO/W [facility]TRST HC CT ABD&PELVIS WO/W [facility] [place] ABD&PELVIS WO/W [place] CT ABD&PELVIS W CNTRST HC CT ABD&PELVIS W CNTRST [address] [facility] [place] CT ABD&[place] [address] Referral ID Status Reason Start Date Expiration Date Visits Requ ested Visits Authorized [id number] Closed 07/10/2018 07/10/2019 1 1 Encounter Details Date Type Department Care Team Description 08/19/2018 Hospital Encounter Department of [facility] ; Radiology, Leanne Stein M.D. Dilation Pancreatic Duct (HCC); Building, in [address] [place] [address] Stone Pancreatic Duct (HCC); [place], [place] Pancreatitis Chronic (HCC) [address] [place] [id number] [place], [place] [phone] (Work) [phone] Social History Tobacco Use Types Packs/Day Years [...] do you attend taoist or Never 2021 jew services? Do you [...] or slept in a fpc (including now)? Sex Assigned at Date Recorded Male 05/21/2018 2:34 PM CDT documented as of this encounter Last Filed Vital Signs Vital Sign Reading Time Taken Comments Blood Pressure - - Pulse - - Temperature - - Respiratory Rate - - Oxygen Saturation - - Inhaled Oxygen Concentration - - Weight 102 kg (225 lb) 08/19/2018 12:10 PM [employer]EE PLANT[employer] WORKER Height 188 cm (6' 2) 08/19/2018 12:10 PM [employer]EE PLANTATION WORKER Body Mass Index 28.89 08/19/2018 12:10 PM [employer]EE PLANTATION WORKER documented in this encounter Medications at Time [...] KwikPen) 100 unit/mL for: Diabetes (70-30) injection yxzaul-pbqjrffc-bxzldjb Take 2 capsules by 120 capsule 0 [...] (for_COZAAR) 100 Take 50 mg by 0 014 05/06/2020 mg tablet mouth daily. metFORMIN [...] documented as of this encounter Nursing Notes Elisa Monet R.N. - 08/19/2018 12:07 PM CST Creatinine 1.0, GFR >30 EE PLANTATION WORKER documented in this encounter Plan of Treatment Not on filedocumented as of this encounter Procedures Procedure Name Priority Date/Time Associated Comments Diagnosis CT ABDOMEN PELVIS RAD - Routine 08/19/2018 12:43 Diarrhea Results for this WITH IV CONTRAST (most inpatients PM COFFEE PLANTATION WORKER Dilation procedu re are in and all Pancreatic Duct the results outpatients) (HCC) section. Stone Pancreatic Duct (HCC) Pancreatitis Chronic (HCC) CREATININE, POCT, Routine 08/19/2018 12:06 Result s for this B PM CO[employer]EE PLANTATION WORKER procedure are i n the results section. CREATININE, POCT, Routine 08/19/2018 12:06 Result s for this B PM [employer]EE PLANTATION WORKER procedure are i n the results section. documented in this encounter Results CT Abdomen Pelvis with IV Contrast (08/19/2018 12:43 PM COFFEE PLANTATION WORKER) Anatomical Region Laterality Modality Abdomen, Pelvis, Abdominal RST LOS, Abdominal ARZ LOS, N/A Computed Tomography Abdominal FLA LOS Specimen (Source) Anatomical Collection Method Collection Time Re ceived Time Location / / Volume Laterality 08/19/2018 1:29 PM CO[employer]EE PLANTATION WORKER Impressions 08/19/2018 1:48 PM COFFEE PLANTATION WORKER IMPRESSION: ?? 1. Chronic calcific pancreatitis. Narrative 08/19/2018 1:48 PM COFFEE PLANTATION WORKER EXAM: ??CT ABDOMEN PELVIS WITH IV CONTRAST COMPARISON: ??CT chest examination dated 04/22/2018 FINDINGS: ??There is irregular dilatatio n of the pancreatic duct and multiple calcifications within the pancreatic par enchyma as well as pancreatic duct. A large 1.3 cm calcified stone within the duct in the head of the pancreas is unchanged. No darryl-pancreatic soft tissu e stranding or edema. No gross pancreatic mass identified. No suspicious hepatic lesion. There is n o intra or extrahepatic biliary ductal dilatation. The gallbladder appears norm al. The spleen is upper limits of normal/bor derline enlarged. Both adrenal glands are normal. ??Multiple bilateral renal c ysts are noted. There is no abdominal or pelvic lymphade nopathy. No free intraperitoneal fluid or gas. The small and large bowel are no rmal in caliber without obstruction or inflammation. There is colonic diverticu losis without diverticulitis. The appendix is normal in caliber. There is a fat-containing umbilical hernia. The prostate gland is enlarged. The urin pavel bladder is distended. Of incidental note is vas deferens calcification which can be seen with diabetes. The aorta is normal in course and calibe r. There is muei-hu-pcokmbhf arthrosclerotic calcification of the aor ta and branch vessels. There is soft tissue stranding within th e ventral abdominal subcutaneous tissue, unchanged. No suspicious osteolytic or osteoblastic lesions. Multilevel degenerative disc disease of the thoracolumbar spine noted Procedure Note Kanwal Pradhan M.D. - 08/19/2018Fo rmatting of this note might be different from the original. EXAM: CT ABDOMEN PELVIS WITH IV CONTRAST COMPARISON: CT chest examination dated 0 04/22/2018 FINDINGS: There is irregular dilatation of the pancreatic duct and multiple calcifications within the pancreatic par enchyma as well as pancreatic duct. A large 1.3 cm calcified stone within the duct in the head of the pancreas is unchanged. No darryl-pancreatic soft tissu e stranding or edema. No gross pancreatic mass identified. No suspicious hepatic lesion. There is n o intra or extrahepatic biliary ductal dilatation. The gallbladder appears norm al. The spleen is upper limits of normal/bor derline enlarged. Both adrenal glands are normal. Multiple bilateral renal cys ts are noted. There is no abdominal or pelvic lymphade nopathy. No free intraperitoneal fluid or gas. The small and large bowel are no rmal in caliber without obstruction or inflammation. There is colonic diverticu losis without diverticulitis. The appendix is normal in caliber. There is a fat-containing umbilical hernia. The prostate gland is enlarged. The urin pavel bladder is distended. Of incidental note is vas deferens calcification which can be seen with diabetes. The aorta is normal in course and calibe r. There is tayr-uy-dktfgowa arthrosclerotic calcification of the aor ta and branch vessels. There is soft tissue stranding within th e ventral abdominal subcutaneous tissue, unchanged. No suspicious osteolytic or osteoblastic lesions. 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 Chronic calcific pancreatitis. Emil Zurita M.D. IMG CT PROCEDURES Creatinine, POCT (08/19/2018 12:06 PM [employer]EE PLANTATION WORKER) P athologist Signature Creatinine, 1.0 0.7 - 1.4 08/19/2018 POC [place] POCT, B mg/dL 12:16 PM COFFEE PLANTATION WORKER PERFORMING LABS Comment: ----ADDITIONAL INFORMATION---- Performed at the Point of Care Specimen Anatomical Collection Method Collection Time Receive d Time (Source) Location / / Volume Laterality Blood 08/19/2018 12:06 08/19/2018 PM CO[employer]EE PLANTATION WORKER 12:16 PM COFFEE PLANTATION WORKER Unknown Provider LAB POCT ORDERABLES - DEVICE Performing Organization Address [facility] Phon e Number [facility] PERFORMING LABS [address] [place] [address] Creatinine, POCT (08/19/2018 12:06 PM COFFEE PLANTATION WORKER) P athologist Signature eGFR-Black/Afr 85 >=60 08/19/2018 POC RST ican Salvadorean, mL/min/BSA 12:17 PM COFFEE PLANTATION WORKER [place] POCT OUTPATIENT LABS Comment: ----ADDITIONAL INFORMATION---- Estimated GFR calculated using the 2009 CKD_EPI creatinine equation. eGFR Non-Black/ 73 >=60 mL/min/BSA 08/19/2018 12:17 POC RST MORAV[place] Salvadorean, POCT PM COFFEE PLANTATION WORKER OUTPATIENT LABS Comment: ----ADDITIONAL INFORMATION---- Estimated GFR calculated using the 2009 CKD_EPI creatinine equation. Specimen Anatomical Collection Method Collection Time Receive d Time (Source) Location / / Volume Laterality Blood 08/19/2018 12:06 08/19/2018 PM COFFEE PLANTATION WORKER 12:16 PM COFFEE PLANTATION WORKER Unknown Provider LAB POCT ORDERABLES - DEVICE Performing Organization Address [facility] Phon e Number POC RST [place] OUTPATIENT [address] [place], [place] [address] LABS documented in this encounter Visit Diagnoses Diagnosis Diarrhea Dilation Pancreatic Duct Stone Pancreatic Duct Pancreatitis Chronic (HCC) documented in this encounter Administered Medications Inactive Administered Medications - up to 3 most recent administrations Medication Order MAR Action Action Date Dose Rate Site iohexol 300 mg iodine/mL solution Given 08/19/2018 12:37 PM CO[employer]EE PLANTATION WORKER 140 mL 1-200 mL (OMNIPAQUE) 1-200 mL, intravenous, Once in imaging, contrast, Starting on Fri08/19/18 at 1202, For 1 dose, Imaging Protocol Orders, Dose per Radiant Medication Guidelines sodium chloride injection 2.5 mL Given 08/19/2018 12:43 PM CO[employer]EE PLANTATION WORKER 2.5 mL 2.5 mL, intravenous, As needed, line care, Starting on Fri08/19/18 at 1208 documented in this encounter Additional Health Concerns Assessment Noted Time PHQ-9 Depression Total Score: 18 04/28/2018 11:27 AM C DT documented as of this encounter Care Teams Dairy Nutrition Specialist Relationship Specialty Start Date End Date Ewa Alejandro M.D. PCP - General 03/13/17 01/09/20 [address], [place] [address] documented as of this encounter
--- OUTSIDE RECORDS SUMMARY | 2022-05-21 11:33 | XMS_ITS | Encounter Summary ---
:1945 Author Organization [facility] Address [address] [place] [address] Care Team Providers Name Role Phone Ewa Alejandro M.D. Primary Care Provider [phone] Encounter Details Date Type Department Care Team Description 08/19/2018 Anesthesia Event Division of Chad Cole, Gastroenterology in [facility], [facility], [place], [place] [address] [facility] [address] [place] [address] [phone] Anesthesia Record Procedure Summary Procedure Name Responsible Anesthesia Start Anesthesia Stop Time Anesthesiologist Time EGD Chad Cole, MENTAL HEALTH AIDE, 08/19/18 0800 08/19/18 0930 (ESOPHAGEALGASTRODU [facility], [facility] ODENOSCOPY) Events Date Time Event Comment 08/19/2018 0751 0800 In Room 0800 An Start Machine/Equipmen t Checked Infection Precautions Foll owed Procedure/Site Verified NPO Sta tus Verified Supine Standard ASA Mon itors Applied 0806 An Induction 0808 An Intubation 0809 Turnover to Proceduralist 0816 Proc Start 0909 Proc Fin 0910 Turnover to ANE Staff 0918 Airway Removal Criteria Met 0918 Extubation/Airway Removed 0918 Out of Room 0922 an stop data 0930 An End I completed my h andoff to the receiving staff during [facility] ch we 1. Identified the patient 2. Ident ified the responsible provider 3. Revi ewed the pertinent medical history 4. Discussed the surgical course 5. Review ed intra-op anesthesia management and i ssues during anesthesia 6. Set expectati ons for post-procedure period 7. Allowe d opportunity for questions and ac knowledgement of understanding. Name Total fentanyl injection 50 mcg/mL 200 mcg lidocaine 2% (mg) injection 100 mg propofol 10 mg/mL 380 mg succinylcholine 20 mg/mL injection 100 mg ondansetron 4 mg/2 mL injection 4 mg ePHEDrine PF 5 mg/mL syringe injection 10 mg sugammadex 100 mg/mL injection 200 mg propofol 10 mg/mL infusion 539.74 mg rocuronium 10 mg/mL injection 30 mg Lactated Ringers Free Drip 1,000 mL Agents No agents on file. Blood No blood administrations on file. Lines, Drains, and Airways Type Details Placement Removal Peripheral IV Placement Date: 08/19/18 075 by 08/19/18 1256 b y 08/19/18; Placement Marce Edwards ROpal Shannon, Time: 752; Catheter R.N. Size: 20 G; Orientation: Right; Location: Forearm; Site Prep: Alcohol; Insertion Attempts: 1; Removal Date: 08/19/18; Removal Time: 125 ETT Placement Date: 08/19/18 08 by Alice, 08/19/18917 by Alice, 08/19/18; Placement Chad Mayer APRN, SWEETIE, Carloz Mayer APRN, SWEETIE, Time: 807 (created via [facility] procedure documentation); Mask Ventilation: Easy mask; Type: Standard ETT; Single Lumen Tube Size: 7 mm; Cuffed: Yes; Blade Size: Sorenson 2; Location: Oral; Removal Date: 08/19/18; Removal Time: 917 documented in this encounter Social History Tobacco [...] do you attend spiritism or Never 2021 lutheran services? Do you [...] encounter OR Notes Anesthesia Postprocedure Evaluation - Chad Cole APRN, CRNA - 08/19/2018 9:30 AM CST Patient: Jonnathan Costa Procedure Summary Date: 08/19/18 Room / Location: Division of Gastroenterology in [place], [place] Anesthesia Start: 0800 Anesthesia Stop: 929 Procedures: EGD (ESOPHAGEALGASTRODUODENOSCOPY) ENDOSCOPIC ULTRASOUND (EUS) COLONOSCOPY Diagnosis: Diarrhea Persistent Unexplained Scheduled Providers: Chad Cole APRN, CRNA Responsible Provider: Chad Cole APRN, CRNA Anesthesia Type: general ASA Status: 3 Anesthesia Type: general Last vitals BP 147/76 (08/19/18929) Temp 36.6 ??C (08/19/18927) Pulse 87 (08/19/18929) Resp (!) 26 (08/19/18929) SpO2 93 % (08/19/18929) Anesthesia Post Evaluation Patient Disposition: dismissal Cardiovascular status: hemodynamics (HR & BP) acceptable Respiratory status: patent airway with spontaneous effort Temperature: normothermic Oxygen requirements: room air Level of consciousness: sedated but awakens easily Pain score: pain adequately controlled and/or at baseline Post Op nausea/vomiting: none Anesthesia observations: refractory nausea and vomiting ATION CONSULTANT Anesthesia Procedure Notes - Chad Cole APRN, CRNA - 08/19/2018 8:22 AM CSTAssociated Order(s): AIRWAY MANAGEMENT Airway Date/Time: 08/19/2018 8:08 AM Patient location during procedure: OR / Procedure Area Performed by: CHAD COLE Authorized by: CHAD COLE Pre procedure details Pre evaluation for airway management: procedure Urgency: elective Preop assessment of probable difficulty: no difficulty anticipated Sedation level: anesthetized Preoxygenation: bag valve mask Procedure details Mask difficulty assessment: easy mask Final airway type: direct laryngoscopy, intubation Laryngeal Manipulation: no Final airway difficulty of direct laryngoscopy (DL): 0-easy Final best view of glottic structures - Cormack/Lehane Score: grade 2A ETT location: oral Adult blade type: Sorenson 2 Adult tube size: 7 Adult ETT distance at teeth/gum: 24 Oral tube type: standard ETT Cuffed: yes Number of attempt to successful placement: 1 Airway confirmation: bilateral breath sounds, positive ETCO2 and bilateral chest rise Other previous techniques attempted: none Post procedure details Procedure outcome: successful Airway event: no complications [facility] Anesthesia Preprocedure Evaluation - Sebas Ying III, M.D. - 08/19/2018 7:50 AM CST Anesthesia Pre-Evaluation Pertinent components of the patient's history including current problem list, medical history, surgical history, family history, social history, medications and allergies were reviewed and updated as appropriate. The patient was examined and the Pre-op diagnosis, planned procedure, and H&P were reviewed and remain unchanged. 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) Other (+) Asthma Extrinsic Moderate (HCC) (+) Cancer Bladder Family History (+) Nausea And Vomiting (+) Reaction Drug Adverse Initial OBJECTIVE PHYSICAL EXAMINATION Airway (HEENT) Mallampati: II TM Distance: >3 FB Neck ROM: Full Cardiovascular Rhythm: Regular Rate: Normal Functional Capacity: >4 METS Pulmonary Pulmonary Assessment: Clear General / Constitutional Constitutional Assessment: Normal ASSESSMENT / PLAN ANESTHESIA PLAN ASA: 3 Anesthesia Plan: general Patient seen and allergies reviewed; anesthesia plan and risks discussed directly with patient / legal guardian, or through an freelance interpreter/translator; patient evaluated and approved for anesthesia / sedation. The use of blood products not discussed ATION CONSULTANT documented in this encounter Plan of Treatment Not on filedocumented as of this encounter Procedures Procedure Name Priority Date/Time Associated Comments Diagnosis LDA ANE ENDOTRACHEAL Routine 08/19/2018 8:22 AM R esults for this AIRWAY EDUCATION CONSULTANT procedure are i n the results section. documented in this encounter Results LDA ANE ENDOTRACHEAL AIRWAY (08/19/2018 8:22 AM EDUCATION CONSULTANT) Narrative Chad Cole APRN, CRNA - 08/19/2018 8:22 AM EDUCATION CONSULTANT Chad Cole APRN, CRNA ? 08/19/2018 ??8:22 AM Airway Date/Time: 08/19/2018 8:08 AM Patient location during procedure: OR / Procedure Area Performed by: CHAD COLE Authorized by: CHAD COLE Pre procedure details ?? Pre evaluation for airway management : procedure ?? Urgency: elective ?? Preop assessment of probable difficu lty: no difficulty anticipated ?? Sedation level: anesthetized ?? Preoxygenation: bag valve mask Procedure details ??Mask difficulty assessment: easy mask ?? Final airway type: direct laryngosco py, intubation Laryngeal Manipulation: no ? Final airway difficulty of direct la ryngoscopy (DL): 0-easy ?? Final best view of glottic structure s - Cormack/Lehane Score: grade 2A ?? ETT location: oral ?? Adult blade type: Sorenson 2 ?? Adult tube size: 7 ?? Adult ETT distance at teeth/gum: 24 ?? Oral tube type: standard ETT ?? Cuffed: yes ?? Number of attempt to successful plac ement: 1 ?? Airway confirmation: bilateral breat h sounds, positive ETCO2 and bilateral chest rise ?? Other previous techniques attempted: none Post procedure details ?? Procedure outcome: successful ? Airway event: no complications Procedure Note Chad Cole APRN, CRNA - 08/19/2018 8:22 AM CST Airway Date/Time: 08/19/2018 8:08 AM Patient location during procedure: OR / Procedure Area Performed by: CHAD COLE Authorized by: CHAD COLE Pre procedure details Pre evaluation for airway management: p rocedure Urgency: elective Preop assessment of probable difficulty : no difficulty anticipated Sedation level: anesthetized Preoxygenation: bag valve mask Procedure details Mask difficulty assessment: easy mask Final airway type: direct laryngoscopy, intubation Laryngeal Manipulation: no Final airway difficulty of direct laryn goscopy (DL): 0-easy Final best view of glottic structures - Cormack/Lehane Score: grade 2A ETT location: oral Adult blade type: Sorenson 2 Adult tube size: 7 Adult ETT distance at teeth/gum: 24 Oral tube type: standard ETT Cuffed: yes Number of attempt to successful placeme nt: 1 Airway confirmation: bilateral breath s ounds, positive ETCO2 and bilateral chest rise Other previous techniques attempted: no ne Post procedure details Procedure outcome: successful Airway event: no complications Chad Cole APRN, CRNA, DNAP ANESTHESIA ORDERABLES documented in this encounter Visit Diagnoses Not on filedocumented in this encounter Administered Medications Inactive Administered Medications - up to 3 most recent administrations Medication Order MAR Action Action Date Dose Rate Site ePHEDrine (PF) injection Given 08/19/2018 8:30 AM EDUCATION CONSULTANT 10 mg intravenous, As needed, Starting on Fri08/19/18 at 0830, Anesthesia Intra-op fentaNYL injection (SUBLIMAZE) Given 08/19/2018 8:45 AM EDUCATION CONSULTANT 50 mcg intravenous, As needed, severe pain or score 7-10 of 10, Starting on Fri08/19/18 at 0805, Anesthesia Intra-op Given 08/19/2018 8:14 AM EDUCATION CONSULTANT 50 mcg Given 08/19/2018 8:08 AM EDUCATION CONSULTANT 50 mcg lactated ringers New Bag 08/19/2018 9:12 AM EDUCATION CONSULTANT intravenous, Continuous Infusion: Per Instructions PRN, Starting on Fri08/19/18 at 0800, Anesthesia Intra-op New Bag 08/19/2018 8:00 AM EDUCATION CONSULTANT lidocaine (PF) (cardiac) injection Given 08/19/2018 8:05 AM EDUCATION CONSULTANT 100 mg intravenous, As needed, Starting on Fri08/19/18 at 0805, Anesthesia Intra-op ondansetron (PF) injection (ZOFRAN) Given 08/19/2018 8:05 AM EDUCATION CONSULTANT 4 mg intravenous, As needed, nausea, vomiting, Starting on Fri08/19/18 at 0805, Anesthesia Intra-op propofol 10 mg/mL infusion Rate/Dose 08/19/2018 8:45 75 mcg/kg/min 4 6.5 mL/hr (DIPRIVAN) Change AM EDUCATION CONSULTANT Continuous Infusion: Per Instructions PRN, Starting on Fri08/19/18 at 0807, Anesthesia Intra-op Rate/Dose Change 08/19/2018 8:24 AM EDUCATION CONSULTANT 100 mcg/kg/min 62 mL/hr Rate/Dose Change 08/19/2018 8:12 AM EDUCATION CONSULTANT 125 mcg/kg/min 77.5 mL/hr propofol injection (DIPRIVAN) Given 08/19/2018 8:45 AM EDUCATION CONSULTANT 50 mg intravenous, As needed, Starting on Fri08/19/18 at 0806, Anesthesia Intra-op Given 08/19/2018 8:16 AM EDUCATION CONSULTANT 30 mg Given 08/19/2018 8:14 AM EDUCATION CONSULTANT 50 mg rocuronium injection (ZEMURON) Given 08/19/2018 8:15 AM EDUCATION CONSULTANT 30 mg As needed, Starting on Fri08/19/18 at 0815, Anesthesia Intra-op succinylcholine-0.9% NaCl (PF) injection Given 08/19/2018 8:06 A M EDUCATION CONSULTANT 100 mg (ANECTINE) intravenous, As needed, Starting on Fri08/19/18 at 0806, Anesthesia Intra-op sugammadex injection (BRIDION) Given 08/19/2018 9:07 AM EDUCATION CONSULTANT 200 mg As needed, Starting on Fri08/19/18 at 0907, Anesthesia Intra-op documented in this encounter Additional Health Concerns Assessment Noted Time PHQ-9 Depression Total Score: 18 04/28/2018 11:27 AM C DT documented as of this encounter Care Teams Applications Trainer Relationship Specialty Start Date End Date Ewa Alejandro M.D. PCP - General 6/15/17 [id number] [place] [address] documented as of this encounter
--- OUTSIDE RECORDS SUMMARY | 2022-05-21 11:33 | XMS_ITS | Encounter Summary ---
:1945 Author Organization [facility] Address [address] [place] [address] Care Team Providers Name Role Phone Ewa Alejandro M.D. Primary Care Provider Encounter Details Date Type Department Care Team Description 10/06/2018 Clinical Communication Department of Family Kirill Torres [facility], Ewa Jack, [facility], in [place] [address] [place] [phone] Social History Tobacco Use Types Packs/Day Years [...] do you attend scientologist or Never 2021 presybeterian services? Do you [...] encounter Miscellaneous Notes Telephone Encounter - Morelia Garcia L.P.NMauro - 10/06/2018 12:44 PM ENERGY SALES CONSULTANT Please advise on the request for a referral to Derm surgery in [place]. GY SALES CONSULTANT Telephone Encounter - Tolu Amanda - 10/06/2018 11:02 AM CST Reason for Communication: Patient needs to be seen in [place]. Phyllis doesn't do Mohs surgeries. Current Phone Number: Can Nursing/Provider leave a detailed message: na Did the patient refuse triage through Nurse line? (for symptom based concerns)na Action Needed: 10/06/18 Please have Ewa gonzales new order for SANDBORN; Derm Surgery Consult: [facility] nose [facility] Ewa Hinton 09/21/2018 (Approximate) Name of Medication (if relevant): GY SALES CONSULTANT documented in this encounter Plan of Treatment Not on filedocumented as of this encounter Visit Diagnoses Not on filedocumented in this encounter Additional Health Concerns Assessment Noted Time PHQ-9 Depression Total Score: 18 04/28/2018 11:27 AM C DT documented as of this encounter Care Teams Merchandise Planning Manager Relationship Specialty Start Date End Date Ewa Alejandro M.D. PCP - General 03/13/17 01/09/[address] [phone] documented as of this encounter
--- OUTSIDE RECORDS SUMMARY | 2022-05-21 11:33 | XMS_ITS | Encounter Summary ---
:1945 Author Organization [facility] Address [address] [place] [address] Care Team Providers Name Role Phone Ewa Alejandro M.D. Primary Care Provider [phone] Encounter Details Date Type Department Care Team Description 07/10/2018 Orders Only Division of Gastroenterology in [place], [place] 200 [facility] [address] [place] [address] [place], [place] [phone] (Wo rk) Social History Tobacco Use Types [...] do you attend latter-day or Never 2021 muslim services? Do you [...] or slept in a intermediate (including now)? Sex Assigned at Date Recorded Male 05/21/2018 2:34 PM CDT documented as of this encounter Plan of Treatment Not on filedocumented as of this encounter Visit Diagnoses Not on filedocumented in this encounter Additional Health Concerns Assessment Noted Time PHQ-9 Depression Total Score: 18 04/28/2018 11:27 AM C DT documented as of this encounter Care Teams Town Clerk Relationship Specialty Start Date End Date Ewa Alejandro M.D. PCP - General 03/13/17 01/09/20 [address], [place] [address] documented as of this encounter
--- OUTSIDE RECORDS SUMMARY | 2022-05-21 11:33 | XMS_ITS | Encounter Summary ---
:1945 Author Organization [facility] Address [address] [place] [address] Care Team Providers Name Role Phone Ewa Alejandro M.D. Primary Care Provider [phone] Encounter Details Date Type Department Care Team Description 07/10/2018 Hospital Encounter Department of Laboratory Emil Zurita, [facility], [facility], in [place], [address] [place] [address] 1025 [facility] [address] [place] [address] [phone] Social History Tobacco Use Types Packs/Day Years [...] do you attend hinduism or Never 2021 denominational services? Do you [...] or slept in a assisted (including now)? Sex Assigned at Date Recorded [...] documented as of this encounter Care Teams Client Services Vice President Relationship Specialty Start Date End Date Ewa Alejandro M.D. PCP - General 03/13/17 01/09/[address] [place] [address] documented as of this encounter
--- OUTSIDE RECORDS SUMMARY | 2022-05-21 11:33 | XMS_ITS | Encounter Summary ---
:1945 Author Organization [facility] Address [address] [place] [address] Care Team Providers Name Role Phone Ewa Alejandro M.D. Primary Care Provider [phone] Encounter Details Date Type Department Care Team Description 08/21/2018 Documentation Division of Gastroenterology Ran Vil[place] in [facility] cameron [address] [place] [phone] Social History Tobacco Use Types Packs/Day Years [...] do you attend scientologist or Never 2021 alevism services? Do you [...] documented as of this encounter Care Teams Electron Beam Welder Relationship Specialty Start Date End Date Ewa Alejandro M.D. PCP - General 03/13/17 01/09/20 [address], [place] [address] documented as of this encounter
--- OUTSIDE RECORDS SUMMARY | 2022-05-21 11:33 | XMS_ITS | Encounter Summary ---
:1945 Author Organization [facility] Address [address] [place] [address] Care Team Providers Name Role Phone Ewa Alejandro M.D. Primary Care Provider Encounter Details Date Type Department Care Team Description 09/16/2018 Clinical Communication Department of Family Kirill Torres [facility], Ewa [place], Clinic, in [place] [address] [place] [phone] Social History Tobacco Use Types Packs/Day Years [...] do you attend christianity or Never 2021 quaker services? Do you [...] Miscellaneous Notes Telephone Encounter - Jacquie Hamilton L.P.NMauro - 09/21/2018 2:02 PM CHAIR UPHOLSTERER Patient notified consult placed to [facility] R UPHOLSTERER Telephone Encounter - Ewa Alejandro M.D. - 09/21/2018 1:53 PM CHAIR UPHOLSTERER Consult completed R UPHOLSTERER Telephone Encounter - Jacquie Hamilton L.PMauroNMauro - 09/21/2018 10:41 AM CHAIR UPHOLSTERER Per patient biopsy was completed on left side of nose just under left eye. Per patient it is basal cell carcinoma. Request for Patients biopsy slides To be forwarded to [facility] dermatology onocology department was [place] and the gave him the results of the biopsy completed there since patient wants further surgical proceedures and treatments completed in [facility] instead of the [place]. Per patient if [place] does not receive slides he stated he will personally drive to the [place] and get them. Per patient please submitt referal for [facility] services so appointment can be made after first of the year R UPHOLSTERER Telephone Encounter - Estelle Chau R.N. - 09/17/2018 9:09 AM CST Attempted to call patient, voicemail is full unable to leave message. R UPHOLSTERER Telephone Encounter - Ewa Alejandro M.D. - 09/16/2018 4:34 PM CHAIR UPHOLSTERER Yes but I need more information. Where was the biopsy? What is the type of cancer? How will we get the pathology slides to [place]? I need to know this before I make the referral request. R UPHOLSTERER Telephone Encounter - Estelle Chau R.N. - 09/16/2018 3:13 PM CST Patient reports that he has cancer in his nose and he needs a Mohs surgery to have it removed. He notes that he is unable to do it the standard way due to anxiety with the needles and how it is completed. He notes that he is going to need some anesthesia to have this completed. He is asking to be referred to [place] for this so he is asking if he could be referred to [place] for this. Please advise. R UPHOLSTERER Telephone Encounter - Mamta Olivares - 09/16/2018 1:33 PM CST Reason for Communication: Patient is calling, wants to talk to nurse before he scheduleds with doctor. Current Can Nursing/Provider leave a detailed message: yes Did the patient refuse triage through Nurse line? (for symptom based concerns)na Action Needed: please call patient back Name of Medication (if relevant): na R UPHOLSTERER documented in this encounter Plan of Treatment Not on filedocumented as of this encounter Visit Diagnoses Diagnosis Basal Cell Carcinoma Breast - Primary documented in this encounter Additional Health Concerns Assessment Noted Time PHQ-9 Depression Total Score: 18 04/28/2018 11:27 AM C DT documented as of this encounter Care Teams Patcher Wood Welder Relationship Specialty Start Date End Date Ewa Alejandor M.D. PCP - General 03/13/17 01/09/20 [address] [place] [phone] documented as of this encounter
--- OUTSIDE RECORDS SUMMARY | 2022-05-21 11:33 | XMS_ITS | Encounter Summary ---
:[address] [facility] Address [address] [place] [address] Care Team Providers Name Role Phone Ewa Alejandro M.D. Primary Care Provider [phone] Encounter Details Date Type Department Care Team Description 08/19/2018 Hospital Encounter Department of Parminder, Diarrhea ; Laboratory Medicine Rhoda Stein Dilation Pancreatic Duct (HCC); and Pathology, [address] [place] [address] Stone Pancreatic Duct (HCC); [facility], in [place], [place] Pancrea titis Chronic (HCC) [place], [place] [address] [place] [address] [place], [place] (Work) [phone] Social History Tobacco Use Types Packs/Day Years [...] do you attend yazdanism or Never 2021 samaritan services? Do you [...] Date/Time Associated Comments Diagnosis CREATININE WITH Routine 08/19/2018 1:16 PM Diarrhea Results for this EGFR, S/P DOOR OPERATOR Dilation Pancreatic procedur e are in Duct (HCC) the results Stone Pancreatic section. Duct (HCC) Pancreatitis Chronic (HCC) documented in this encounter Results Creatinine with Estimated GFR (08/19/2018 1:16 PM DOOR OPERATOR) Analysis Performed At Patho logist Time Signature Creatinine 1.04 0.74 - 08/19/2018 [facility] 1.35 mg/dL 2:27 PM DOOR OPERATOR LABORATORIES - [facility] eGFR-Non 70 >=60 08/19/2018 [facility] Black/ mL/min/BSA 2:27 PM DOOR OPERATOR LABORATORIES - [facility] Comment: ----ADDITIONAL INFORMATION---- Estimated GFR calculated using the 2009 CKD_EPI creatinine equation. eGFR-Black/ 81 >=60 mL/min/BSA 08/19/2018 2:27 [facility] Guamanian PM DOOR OPERATOR LAB[facility] - [facility] Comment: ----ADDITIONAL INFORMATION---- Estimated GFR calculated using the 2009 CKD_EPI creatinine equation. Specimen Anatomical Collection Method Collection Time Receive d Time (Source) Location / / Volume Laterality Blood (Blood, 08/19/2018 1:16 PM 08/19/20 18 1:43 Venous) DOOR OPERATOR PM DOOR OPERATOR Emil Zurita M.D. LAB BLOOD ADD-ON Performing Organization Address City/State/ZIP Code Phon e Number [facility] - [address] documented in this encounter Visit Diagnoses Diagnosis Diarrhea Dilation Pancreatic Duct Stone Pancreatic Duct Pancreatitis Chronic (HCC) documented in this encounter Additional Health Concerns Assessment Noted Time PHQ-9 Depression Total Score: 18 04/28/2018 11:27 AM C DT documented as of this encounter Care Teams Research Spec Relationship Specialty Start Date End Date Ewa Alejandro M.D. PCP - General 03/13/17 01/09/[address] [phone] documented as of this encounter
--- OUTSIDE RECORDS SUMMARY | 2022-05-21 11:33 | XMS_ITS | Encounter Summary ---
:1945 Author Organization [facility] Address [address] [place] [address] Care Team Providers Name Role Phone Ewa Alejandro M.D. Primary Care Provider [phone] Reason for Visit Reason Onset Date Comments telephone call to patient 10/05/2018 Raven Sterling CNP/Keyonna Encounter Details Date Type Department Care Team Description 10/05/2018 Clinical Division of [place], telephone call to Communication Endocrinology in [place], patient ([place], [place] R.N., [facility] [place], [address] ZULEYKA/Keyonna) [place] [address] [phone] Social History Tobacco Use Types Packs/Day Years [...] do you attend advent or Never 2021 hinduism services? Do you [...] or slept in a [facility] (including now)? Sex Assigned at Date Recorded Male 05/21/2018 2:34 PM CDT documented as of this encounter Miscellaneous Notes Telephone Encounter - Keyonna Crain - 10/05/2018 9:59 AM CST Patient called (he is asking to talk to Catalina Barber. Reason for Calling: He saw Raven on 09-30-18 Detailed Message:he has questions - when I asked him about getting details, he started talking aboutthe rx Dr. Triana wrote him about the flash glucose Sofya 14 day sensor. I tried to answer his questions about the rx. He indicated he had more questions and really wanted to talk with Catalina. Best time to be reached:anytime after 3 pm Contact patient by:telephone Phone number: [phone] Thank you, Keyonna for the nurses PLEASE REPLY TO THE SECRETARIAL POOL WHEN REPLYING TO THIS MESSAGE--p RST END MARIAMA BAINS. Thank you! BER documented in this encounter Plan of Treatment Not on filedocumented as of this encounter Visit Diagnoses Not on filedocumented in this encounter Additional Health Concerns Assessment Noted Time PHQ-9 Depression Total Score: 18 04/28/2018 11:27 AM C DT documented as of this encounter Care Teams Timing Inspector Relationship Specialty Start Date End Date Ewa Alejandro M.D. PCP - General 03/13/17 01/09/20 [address] [place] [address] documented as of this encounter
--- OUTSIDE RECORDS SUMMARY | 2022-05-21 11:34 | XMS_ITS | Encounter Summary ---
:1945 Author Organization [facility] Address [address] [place] [address] Care Team Providers Name Role Phone Ewa Alejandro M.D. Primary Care Provider [phone] Reason for Visit Reason Onset Date Comments Colonoscopy 07/01/2018 Encounter Details Date Type Department Care Team Description 07/01/2018 Clinical Communication Division of Jhonny Zuritaopy Gastroenterology in Rhoda Stein [place], [place] [address] [facility] [address] [place] [address] [phone] Social History Tobacco Use Types Packs/Day Years [...] do you attend sikhism or Never 2021 congregational services? Do you [...] this encounter Miscellaneous Notes Telephone Encounter - Leah Juarez L.P.N. - 07/22/2018 1:24 PM CDT Patient stated he wants to wait to have colonoscopy done till after his other testing is complete. Will call to schedule at a later date. Telephone Encounter - Maday Young - 07/03/2018 7:48 AM CDT Letter mailed to patient to call back to schedule a Colonoscopy. Telephone Encounter - Maday Young - 07/03/2018 7:47 AM CDT ----- Message from Leah Juarez L.P.N. sent at 02/10/2018 1:39 PM CDT ----- Regarding: rescope Colonoscopy due 08/10/18 documented in this encounter Plan of Treatment Not on filedocumented as of this encounter Results Interpretation of Outside CT Abdomen and or Pelvis (07/03/2018 7:38 AM CDT) Anatomical Region Laterality Modality Abdomen, Pelvis, Abdominal RST LOS, Abdominal ARZ LOS, N/A Computed Tomography Abdominal FLA LOS Specimen (Source) Anatomical Collection Method Collection Time Re ceived Time Location / / Volume Laterality 2018 8:51 AM CDT Impressions 2018 8:59 AM CDT IMPRESSION: Changes of chronic pancreatitis including pancreatic atrophy, calcification, and ductal dilatation. No discrete pancreatic mass is seen. Narrative 2018 8:59 AM CDT EXAM: INTERPRETATION OF OUTSIDE CT ABDOMEN AND OR PELVIS COMPARISON: 02/16/2018 FINDINGS: LIVER: Normal SPLEEN: Normal PANCREAS: Changes of chronic pancreatiti s with multiple calcifications including a large 20 calcification in the pancreat ic head. Mild pancreatic ductal dilatation measuring up to 0.7 cm. No so ft tissue pancreatic mass. GALLBLADDER/BILIARY TREE: Normal gallbla dder. Nondilated biliary tree. ADRENAL GLANDS: Normal KIDNEYS: No hydronephrosis, soft tissue mass, calcifications, or perinephric fluid collections. RETROPERITONEUM: No lymphadenopathy BOWEL: No bowel related pathology PELVIC VISCERA: Enlarged prostate measur ing up to 6.3 cm in greatest transverse dimension. Normal urinary bladder. VASCULATURE: Normal caliber aorta with s cattered atherosclerotic disease. SOFT TISSUE/OTHER: Reticular soft tissue changes in the anterior abdominal wall are stable since 2016. BONES: No aggressive osseous lesions LUNG BASES: While thoracic images are av ailable, a separate consultation is not requested. Procedure Note Nikolay Crain M.D. - 2018Format ting of this note might be different from the original. EXAM: INTERPRETATION OF OUTSIDE CT ABDOM EN AND OR PELVIS COMPARISON: 02/16/2018 FINDINGS: LIVER: Normal SPLEEN: Normal PANCREAS: Changes of chronic pancreatiti s with multiple calcifications including a large 20 calcification in the pancreat ic head. Mild pancreatic ductal dilatation measuring up to 0.7 cm. No so ft tissue pancreatic mass. GALLBLADDER/BILIARY TREE: Normal gallbla dder. Nondilated biliary tree. ADRENAL GLANDS: Normal KIDNEYS: No hydronephrosis, soft tissue mass, calcifications, or perinephric fluid collections. RETROPERITONEUM: No lymphadenopathy BOWEL: No bowel related pathology PELVIC VISCERA: Enlarged prostate measur ing up to 6.3 cm in greatest transverse dimension. Normal urinary bladder. VASCULATURE: Normal caliber aorta with s cattered atherosclerotic disease. SOFT TISSUE/OTHER: Reticular soft tissue changes in the anterior abdominal wall are stable since 2016. BONES: No aggressive osseous lesions LUNG BASES: While thoracic images are av ailable, a separate consultation is not requested. IMPRESSION: Changes of chronic pancreati tis including pancreatic atrophy, calcification, and ductal dilatation. No discrete pancreatic mass is seen. Emil Zurita M.D. IMG CT PROCEDURES documented in this encounter Visit Diagnoses Diagnosis Pancreatitis Personal History - Primary Pancreatitis Personal History documented in this encounter Additional Health Concerns Assessment Noted Time PHQ-9 Depression Total Score: 18 04/28/2018 11:27 AM C DT documented as of this encounter Care Teams Robotics Engineer Relationship Specialty Start Date End Date Ewa Alejandro M.D. PCP - General 03/13/17 01/09/20 [address] [place] [phone] documented as of this encounter
--- OUTSIDE RECORDS SUMMARY | 2022-05-21 11:34 | XMS_ITS | Encounter Summary ---
:1945 Author Organization [facility] Address [address] [place] [address] Care Team Providers Name Role Phone Ewa Alejandro M.D. Primary Care Provider Encounter Details Date Type Department Care Team Description 05/08/2018 Clinical Communication Department of Family Kirill Torres [facility] in [facility] [place] [address] [facility] [address] [place] [phone] Social History Tobacco Use Types Packs/Day [...] do you attend muslim or Never 2021 yarsanism services? Do you [...] Notes Telephone Encounter - Pura Abdullahi - 05/11/2018 11:52 AM CDT Patient is scheduled to see Dr. Martino 05/12/18. Telephone Encounter - Cheryl Tucker L.P.NMauro - 05/11/2018 11:11 AM CDT Please call patient to schedule with Dr. Martino as requested by patient. Telephone Encounter - Eaw Alejandro M.D. - 05/08/2018 5:26 PM CDT He can call to schedule appointment. Telephone Encounter - Jacquie Hamilton L.P.NMauro - 05/08/2018 4:48 PM CDT Patient is requesting a referal to dr martino internal medicine physician due to patient continues withupset stomach with diarrhea every day at 1am. Please advise patient when referal is completed so he can schedule Telephone Encounter - Mamta Olivares - 05/08/2018 9:44 AM CDT Patient is calling and he would like to talk to nurse to have her discuss options with Dr. Roy. Please call him back at [phone] documented in this encounter Plan of Treatment Not on filedocumented as of this encounter Visit Diagnoses Not on filedocumented in this encounter Additional Health Concerns Assessment Noted Time PHQ-9 Depression Total Score: 18 04/28/2018 11:27 AM C DT documented as of this encounter Care Teams Side Gluer Relationship Specialty Start Date End Date Ewa Alejandro M.D. PCP - General 03/13/17 01/09/[address] [phone] documented as of this encounter
--- OUTSIDE RECORDS SUMMARY | 2022-05-21 11:34 | XMS_ITS | Encounter Summary ---
:1945 Author Organization [facility] Address [address] [place] [address] Care Team Providers Name Role Phone Ewa Alejandro M.D. Primary Care Provider Encounter Details Date Type Department Care Team Description 04/28/2018 Hospital Encounter Department of [facility] Ewa brunson, Type 2 (HCC) in [place] [address] [place] [id number] Social History Tobacco Use Types Packs/Day [...] do you attend congregation or Never 2021 yazidism services? Do you [...] [place] [facility] ([facility] Sex Assigned at Date Recorded Male 05/21/2018 2:34 PM CDT documented as of this encounter Medications at Time of Discharge Medication Sig Dispensed Refills Start Date End Date atorvastatin Take 80 mg by mouth 0 (for_LIPITOR) 80 mg daily. tablet blood sugar diagnostic Reports checking 4-5 0 strips times daily. clopidogreL (PLAVIX) 75 Take 1 tablet by mouth 0 04/29/2016 mg tablet daily. PEN NEEDLE, DIABETIC Yani Fine 30 0 MISC disposable needles. For use with Insulin Pens, 4 times daily SYRINGE-NEEDLE,INSULIN, 0 0.5 ML (INSULIN SYRINGE MISC) albuterol (for_ACCUNEB) Take 2.5 mg by 0 05/25/2020 2.5 mg /3 mL nebulizer nebulization every 6 solution (six) hours as needed for wheezing or shortness of breath. albuterol sulfate 90 Inhale 2 puffs every 6 0 09/13/2020 mcg/actuation aerosol (six) hours as needed. powdr breath activated amLODIPine Take 5 mg by mouth 2 0 04/29 (for_NORVASC) 5 mg (two) times a day. tablet budesonide-formoterol Inhale 2 puffs as 0 013 12/16/2019 (for_SYMBICORT) 160-4.5 needed. mcg/actuation inhaler doxazosin (CARDURA) 4 Take 1 tablet by mouth 0 05/08/2018 mg tablet at bedtime. gemfibroziL (LOPID) 600 Take 1 tablet by 0 200811/06/2021 mg tablet mouth. insulin aspart Inject 20 Units under 0 12/28/2014 09/18/2018 (NovoLOG) 100 unit/mL the skin 3 (three) injection times a day before meals. insulin glargine Inject 20 Units under 0 02/01/20 15 05/06/2020 (LANTUS) 100 unit/mL the skin at bedtime. injection insulin NPH and regular LW Addl 0 11/15/2008 0 05/04/2020 human (HumuLIN 70/30 Instr:Indicated for: U-100 KwikPen) 100 Diabetes unit/mL (70-30) injection liraglutide Inject 1.8 mg under 0 04/29 (for_VICTOZA) 0.6 the skin daily. mg/0.1 mL (18 mg/3 mL) injection lisinopril Take 1 tablet by 0 11/15/2008 01/21/20 20 (PRINIVIL,ZESTRIL) 10 mouth. mg tablet lisinopriL Take 1 tablet by mouth 0 11/15/2008 (PRINIVIL,ZESTRIL) 10 daily. mg tablet losartan (for_COZAAR) Take 50 mg by mouth 0 10/1305/06/2020 100 mg tablet daily. lovastatin (MEVACOR) 40 Take 2 tablets by 0 07/1905/08/2018 mg tablet mouth at bedtime. metFORMIN Take 1 tablet by mouth 0 08/22/2010 (for_GLUCOPHAGE) 1,000 2 (two) times a day mg tablet with meals. metFORMIN (GLUMETZA) Take 1 tablet by mouth 0 11/07/2021 1,000 mg 24 hr tablet daily. MULTIVITAMIN ORAL Take 1 tablet by mouth 0 05/08/2018 daily. omega-3 fatty Take 1 g by mouth 0 02/27 acids-fish oil daily. 300-1,000 mg capsule traZODone (for_DESYREL) Take 50-100 mg by 0 05/08/2018 50 mg tablet mouth at bedtime as needed for sleep. documented as of this encounter Progress Notes Josselin Tran R.N. - 04/28/2018 8:24 AM CDT Called patient. Reviewed his meds, according to his current med list he is not taking, amlodipine, doxazosin, lovastatin, trazodone or his vitamins. He is currently taking only 1/2 of the atorvastatin.Not on his list that he says he is taking is hydrochlorothiazide 25 mg at HS. Everything else he is taking as on his list. documented in this encounter Plan of Treatment Not on filedocumented as of this encounter Procedures Procedure Name Priority Date/Time Associated Comments Diagnosis LIPID PANEL, S Routine 04/28/2018 8:48 Diabetes Mellitus Resul ts for this AM CDT Type 2 (HCC) procedure are i n the results section. ASPARTATE Routine 04/28/2018 8:48 Diabetes Mellitus Results for this AMINOTRANSFERASE (AST), AM CDT Type 2 (HCC) proc edure are in S/P the results section. HEMOGLOBIN A1C, B Routine 04/28/2018 8:48 Diabetes Mellitus Re sults for this AM CDT Type 2 (HCC) procedure are i n the results section. BASIC METABOLIC PANEL, Routine 04/28/2018 8:48 Diabetes Mellit us Results for this S/P AM CDT Type 2 (HCC) procedure are i n the results section. documented in this encounter Results (ABNORMAL) BMP (Basic Metabolic Panel) (04/28/2018 8:48 AM CDT) P athologist Signature Potassium, S 4.7 3.6 - 5.2 04/28/2018 [facility] mmol/L 12:03 PM [facility] Sodium, S 138 135 - 145 04/28/2018 [facility] mmol/L 12:03 PM CDT [facility] Chloride, S 104 98 - 107 04/28/2018 [facility] mmol/L 12:03 PM CDT [facility] Bicarbonate, S 23 22 - 29 04/28/2018 [facility] mmol/L 12:03 PM T [facility] Anion Gap 11 7 - 15 04/28/2018 [facility] 12:03 PM T [facility] BUN (Blood Urea 34 (H) 8 - 24 04/28/2018 [facility] Nitrogen), S mg/dL 12:03 PM T [facility] Creatinine 1.31 0.74 - 04/28/2018 [facility] 1.35 mg/dL 12:03 PM T [facility] eGFR-Non 53 (L) >=60 04/28/2018 [facility] Black/ mL/min/BSA 12:03 PM T [facility] [place] Comment: ----ADDITIONAL INFORMATION---- Estimated GFR calculated using the 2009 CKD_EPI creatinine equation. eGFR-Black/ 62 >=60 mL/min/BSA 2017 12:03 PM [facility] Comment: ----ADDITIONAL INFORMATION---- Estimated GFR calculated using the 2009 CKD_EPI creatinine equation. Calcium, Total, S 8.7 (L) 8.8 - 10.2 mg/dL 04/28/2018 1 2:03 PM [facility] Glucose, S 220 (H) 70 - 140 mg/dL 04/28/2018 12:03 PM [facility] Specimen Anatomical Collection Method Collection Time Receive d Time (Source) Location / / Volume Laterality Blood (Blood, 04/28/2018 8:48 AM 04/28/20 18 Venous) CDT 10:59 AM CDT Ewa Alejandro M.D. LAB BLOOD ADD-ON Performing Organization Address City/State/ZIP Code Phon e Number [facility] [address] [place] [id number] LAB (ABNORMAL) Hemoglobin A1c (04/28/2018 8:48 AM CDT) P athologist Signature Hemoglobin A1c, 8.9 (H) 4.2 - 5.6 04/28/2018 [facility] B % 1:[address] [facility] Comment: Hemoglobin A1c values greater than or eq ual to 6.5 percent are diagnostic for diabetes mellitus. ?? Diagnosis should be confirmed by repeat testing. ??In diabet ic patients, HbA1c goals should be discussed with healthcar e provider. Specimen Anatomical Collection Method Collection Time Receive d Time (Source) Location / / Volume Laterality Blood (Blood, 04/28/2018 8:48 AM 04/28/20 18 Venous) CDT 10:59 AM CDT Ewa Alejandro M.D. LAB BLOOD ADD-ON Performing Organization Address City/State/ZIP Code Phon e Number [facility] [address] [place] [address] LAB AST (Aspartate Aminotransferase) (04/28/2018 8:48 AM CDT) [facility] gist Method Time Signature Aspartate 17 8 - 48 04/28/2018 [facility] Aminotransferase U/L 12:03 PM CDT [facility] [facility] [employer] [facility] Specimen Anatomical Collection Method Collection Time Receive d Time (Source) Location / / Volume Laterality Blood (Blood, 04/28/2018 8:48 AM 04/28/20 18 Venous) CDT 10:59 AM CDT Ewa Alejandro M.D. LAB BLOOD ADD-ON Performing Organization Address City/State/ZIP Code Phon e Number [facility] [address] [place] [address] LAB (ABNORMAL) Lipid Panel (04/28/2018 8:48 AM CDT) P athologist Signature Cholesterol, 193 mg/dL 04/28/2018 [facility] Total 12:[address] [facility] Comment: ----REFERENCE VALUE---- Desirable: < 200 Borderline high: 200 - 239 High: > or = 240 Triglycerides 402 (H) mg/dL 04/28/2018 2:48 PM CDT [facility] Comment: ----REFERENCE VALUE---- Normal: <150 Borderline high: 150-199 High: 200-499 Very high: > or =500 Cholesterol, HDL, S 33 (L) >=40 mg/dL 04/28/2018 2:48 PM CDT [facility] Calculated LDL CANCELED mg/dL 04/28/2018 2:48 PM CDT [facility] Comment: Triglyceride >400 mg/dL. Calculated LDL cholesterol is not valid. Non-HDL cholesterol may be used f or cardiovascular disease risk assessment when triglycerid es are >400 mg/dL. Result canceled by the ancillary Cholesterol, Non-HDL, 160 (H) mg/dL 04/28/2018 2:48 PM CDT [facility] Comment: ----REFERENCE VALUE---- Desirable: <130 Above Desirable: 130-159 Borderline high: 160-189 High: 190-219 Very high: > or =220 Specimen Anatomical Collection Method Collection Time Receive d Time (Source) Location / / Volume Laterality Blood (Blood, 04/28/2018 8:48 AM 04/28/20 18 Venous) CDT 10:59 AM CDT Ewa Alejandro M.D. LAB BLOOD ADD-ON Performing Organization Address City/State/ZIP Code Phon e Number [facility] [address] [place] [phone] LAB documented in this encounter Visit Diagnoses Diagnosis Diabetes Mellitus Type 2 (HCC) documented in this encounter Additional Health Concerns Assessment Noted Time PHQ-9 Depression Total Score: 18 04/28/2018 11:27 AM C DT documented as of this encounter Care Teams Inspector Balance Wheel Motion Relationship Specialty Start Date End Date Ewa Alejandro M.D. PCP - General 03/13/17 01/09/[address] [phone] documented as of this encounter
--- OUTSIDE RECORDS SUMMARY | 2022-05-21 11:34 | XMS_ITS | Encounter Summary ---
:1945 Author Organization [facility] Address [address] [place] [address] Care Team Providers Name Role Phone Ewa Alejandro M.D. Primary Care Provider [phone] Reason for Visit Outpatient (Routine) - Closed Specialty Diagnoses / Referred By Referred To Cont act Procedures Contact Gastroenterology and Diagnoses Diarrhea Nausea Pancreatitis Chronic (HCC) [facility] Hepatology Ewa walton M.D. [address], [place] [address] Referral ID Status Reason Start Date Expiration Date Visits V isits Requested Authorized [id number] Closed Specialty 06/18/2018 06/18/2019 1 1 Services Required Encounter Details Date Type Department Care Team Description 06/25/2018 Comprehensive Visit Division of [place], Diarrhea (Primary Dx); Gastroenterology in [place], Nausea; [place] Pancreatitis Chronic (HCC) [address] [facility] [address] [place] [address] [place] [address] Social History Tobacco Use Types Packs/Day Years [...] do you attend moravian or Never 2021 sabianist services? Do you belong to any clubs or No 10/09/2021 organizations such as moravian groups, unions, [employer] or athletic groups, or school groups? How [...] or slept in a fci (including now)? Sex Assigned at Date Recorded Male 05/21/2018 2:34 PM CDT documented as of this encounter Consult Notes Emil Zurita M.D. - 06/25/2018 1:00 PM CDT Referring Physician: Ewa Alejandro M.D. Primary Care Physician: Ewa Alejandro M.D. Subjective: Chief Complaint/Reason for Consult: Diarrhea, chronic pancreatitis HPI: Mr. Costa is a pleasant 72-year-old man who I met in the [facility] for the first time today. He was accompanied by his . He has had long-standing diabetes and starting September of this year had new onset GI symptoms in the form of nausea and diarrhea. He initially also had symptoms of fatigue and food aversion. This was attributed to poorly treated depression and with appropriate pharmacotherapy these symptoms have improved over the past few months. However he continues to experience diarrhea which is the primary reason for his visit to the clinic today. In March his disease course was complicated by an emergency room visit for nausea vomiting and diarrhea. Abdominal imaging performed reve aled pancreatic calcifications suggestive of chronic pancreatitis. He has not had any stool testing performed since the onset of his symptoms. He has used Lomotil intermittently that seemed to help. Atthe onset of his symptoms he describes days where if he would experience up to 30 bowel movements mostly Dexter 6 and 7. The frequency has decreased somewhat over the past 2 months and the consistencyhas become more Dexter fiber 6. There are still days where he would experience 4-5 bowel movements.He does not report any fecal incontinence. There is no blood in stool. He does not report a family history of colon or pancreatic malignancies. He never consumed alcohol in excess in his life. He had a20 pack year history of smoking but quit in his 30s. He has no family history of pancreatitis or anyprevious episode of acute pancreatitis himself. His weight is currently stable, appetite is preserved and he mentions that other than the diarrhea he feels well overall. Patient Active Problem List Diagnosis Date Noted ??? Cancer Bladder Family History 05/21/2018 ??? Diabetes Mellitus Type 2 With Diabetic Neuropathy (HCC) 05/12/2018 ??? Nausea And Vomiting 05/12/2018 ??? Diarrhea 05/12/2018 ??? Fatigue 05/12/2018 ??? Headache 05/12/2018 ??? Pancreatitis Chronic Recurrent (HCC) 05/12/2018 ??? Reaction Drug Adverse Initial 05/12/2018 ??? Stroke (HCC) 05/12/2018 ??? Asthma Extrinsic Moderate (HCC) 09/11/2016 ??? 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 Hypertension Essential Primary 07/07/2013 ??? Diabetes Mellitus Type 2 (HCC) 08/24/2008 Past Medical History: Diagnosis Date ??? Apnea Sleep Obstructive 06/18/2011 ??? Asthma (HCC) 10/16/2009 Pulmonary symptomatology, diagnosis at the [facility] unclear, but probably some degree of COPD. [...] INSERTION INTRAOCULAR LENS Left 04/2008 At the [facility] ??? LASER OF PROSTATE W/ GREEN LIGHT PVP 08/28/2016 Greenlight photoselective vaporization of the prostate and cystoscopy with bladder biopsy and fulguration of a 2cm area; 08/28/[address] Prasanna Bernal at the [facility]. ??? TONSILLECTOMY ??? VASECTOMY Allergies Allergen Reactions ??? Doxycycline Rash ??? Penicillin Other (see comments) Abdulkadir Listed no Reactions ??? Sulfa (Sulfonamide Antibiotics) Other (see comments) Abdulkadir Listed no Reactions ??? Amlodipine Hypotension ??? Victoza 2-Eyal [Liraglutide] GI intolerance ??? Gadavist [Gadobutrol] GI intolerance Patient vomited after administration Prior to Admission medications Medication Sig Start Date End Date Taking? Authorizing Provider albuterol (for_ACCUNEB) 2.5 mg /3 mL nebulizer solution Take 2.5 mg by nebulization every 6 (six) hours as needed for wheezing or shortness of breath. Provider, Historical albuterol sulfate 90 mcg/actuation aerosol powdr breath activated Inhale 2 puffs 2 (two) times a day. 08/19/16 Provider, Historical atorvastatin (for_LIPITOR) 80 mg tablet Take 80 mg by mouth daily. Provider, Historical blood sugar diagnostic (ACCU-CHEK MIHAI PLUS TEST STRP) strips Provider, Historical budesonide-formoterol (for_SYMBICORT) 160-4.5 mcg/actuation inhaler Inhale 2 puffs 2 (two) times a day. 07/07/13 Provider, Historical clopidogrel (PLAVIX) 75 mg tablet Take 1 tablet by mouth daily. 04/29/16 Provider, Historical diphenoxylate-atropine (LOMOTIL) 2.5-0.025 mg per tablet Take 1 tablet by mouth 4 (four) times a dayas needed for diarrhea. Provider, Historical escitalopram (LEXAPRO) 10 mg tablet Take 1 tablet (10 mg total) by mouth daily. 04/28/18 Ewa Alejandro M.D. hydroCHLOROthiazide (HYDRODIURIL) 25 mg tablet Take 1 tablet (25 mg total) by mouth daily. 05/08/18 05/08/19 wEa Alejandro M.D. insulin aspart (NovoLOG) 100 unit/mL injection Inject 20 Units under the skin 3 (three) times a day before meals. 12/28/14 Provider, Historical insulin glargine (LANTUS) 100 unit/mL injection Inject 44 Units under the skin at bedtime. 01/31/15 Provider, Historical LORazepam (ATIVAN) 0.5 mg tablet Take 1 tablet (0.5 mg total) by mouth at bedtime as needed for anxiety for up to 15 days. 04/28/18 05/13/18 Ewa Gerard M.D. losartan (for_COZAAR) 100 mg tablet Take 1 tablet by mouth daily. 10/13/13 Provider, Historical metFORMIN (GLUMETZA) 1,000 mg 24 hr tablet Take 1 tablet (1,000 mg total) by mouth 2 (two) times a day with meals. 06/22/18 06/22/19 Sabine Landis, WINDOWS SERVER SUPPORT TECHNICIAN, C.N.P. omega-3 fatty acids-fish oil 300-1,000 mg capsule Take 1 g by mouth daily. Provider, Historical PEN NEEDLE, DIABETIC MISC Yani Fine 30 disposable needles. For use with Insulin Pens, 4 times daily Provider, Historical SYRINGE-NEEDLE,INSULIN,0.5 ML (INSULIN SYRINGE MISC) Provider, Historical Family History Problem Relation Age of Onset [...] History Narrative ??? No narrative on file Objective: General: Alert and oriented not in any acute distress HEENT: No scleral icterus or pallor noted. No cervical lymphadenopathy Chest: Clear to auscultation Cardiovascular S1-S2 normal Abdomen: Soft nontender nondistended. No palpable mass Extremities: No edema Assessment/Plan: #1 Chronic diarrhea #2 Outside imaging demonstrating pancreatic head calcifications suggestive of chronic pancreatitis I met with and reviewed his symptoms. The outside abdominal imaging is not available for my review at this time and we will request him to sign authorization for us to required those images. Reportedly there was no pancreatic mass. The differential diagnosis of diarrhea in his case includes p ancreatic exocrine insufficiency, as well as infectious, malabsorptive and inflammatory causes. It is unlikely to be related to metformin use since he has been on that medication for a long period of time without any recent dose changes. He does not report any obvious dietary triggers for diarrhea. Atthis time my recommendations for him of the following 1. Blood for CBC, creatinine, electrolytes, thyroid function test, celiac serology, CRP, albumin andfat soluble vitamins 2. Stool for GI pathogen panel and 48 hr stool collection for fecal fat and bile-acid estimation 3. When his outside CT images are available I will request our radiologists to review The need for further testing will be determined by the results of the above- outlined tests. If no definite etiology is identified further evaluation with small bowel imaging, small bowel and colonic biopsies would be necessary. He verbalized understanding and was in agreement. Multiple questions answered Electronically signed by: Emil Zurita M.D. 06/25/2018 2:13 PM documented in this encounter Plan of Treatment Not on filedocumented as of this encounter Results GI Pathogen Panel, PCR, Feces (07/10/2018 6:00 AM CDT) [facility] Method Time Signature Specimen Source STOOL 07/10/2018 [facility] 8:38 PM CDT [facility] Campylobacter Negative Negative 07/10/2018 [facility] species 8:38 PM CDT [facility] C. difficile toxin Negative Negative 07/10/2018 [facility] 8:38 PM CDT [facility] Plesiomonas Negative Negative 07/10/2018 [facility] shigelloides 8:38 PM CDT [facility] Salmonella species Negative Negative [facility]/10/[facility] PM [facility] Vibrio species Negative Negative 07/10/2018 [facility] 8:38 PM CDT [facility] Vibrio cholerae Negative Negative 07/10/2018 [facility] 8:38 PM CDT [facility] Yersinia species Negative Negative 07/10/2018 [facility] 8:38 PM CDT [facility] Enteroaggregative E. Negative Negative 07/10/2018 [facility] [place] coli (EAEC) 8:38 PM CDT [facility] Enteropathogenic E. Negative Negative 07/10/2018 [facility] IC coli (EPEC) 8:38 PM CDT [facility] Enterotoxigenic E. Negative Negative 07/10/2018 [facility] coli (ETEC) 8:38 PM CDT [facility] Shiga toxin Negative Negative 07/10/2018 [facility] producing E. coli 8:38 PM CDT [facility] Shigella/Enteroinvas Negative Negative 07/10/2018 [facility] [place] akil E. coli 8:38 PM CDT [facility] Cryptosporidium Negative Negative 07/10/2018 [facility] species 8:38 PM CDT [facility] Cyclospora Negative Negative 07/10/2018 [facility] cayetanensis 8:38 PM CDT [facility] Entamoeba Negative Negative 07/10/2018 [facility] histolytica 8:38 PM CDT [facility] Giardia Negative Negative 07/10/2018 [facility] 8:38 PM CDT [facility] Adenovirus F40/41 Negative Negative 07/10/2018 [facility] 8:38 PM CDT [facility] Astrovirus Negative Negative 07/10/2018 [facility] 8:38 PM CDT [facility] Norovirus GI/GII Negative Negative 07/10/2018 [facility] 8:38 PM CDT [facility] Rotavirus Ag, F Negative Negative 07/10/2018 [facility] 8:38 PM CDT [facility] Sapovirus Negative Negative 07/10/2018 [facility] 8:38 PM CDT [facility] Comment: ----ADDITIONAL INFORMATION---- This assay is performed using the FDA-cl eared FilmArray GI Panel ([employer] Specimen Anatomical Collection Method Collection Time Receive d Time (Source) Location / / Volume Laterality Stool (Stool) 07/10/2018 6:00 AM 07/10/20 18 8:14 CDT PM CDT Emil Zurita M.D. LAB MICROBIOLOGY - GENERAL O RDERABLES Performing Organization Address City/State/ZIP Code Phon e Number [facility] [address] [place] [address] LAB Vitamin A and Vitamin E (07/02/2018 8:45 AM CDT) P athologist Signature Vitamin A 60.0 32.5 - 78.0 07/07/2018 [facility] mcg/dL 2:06 AM T [facility] Comment: ----ADDITIONAL INFORMATION---- This test was developed and its performa nce characteristics determined by [facility] in a manner consistent with CLIA requirements. This test has not been cleared or approved by the [place] d and Drug Administration. A-Tocopherol, Vitamin E 14.1 5.5 - 17.0 07/07/2018 9:25 PM [facility] mg/L T [facility] Comment: ----ADDITIONAL INFORMATION---- This test was developed and its performa nce characteristics determined by [facility] in a manner consistent with CLIA requirements. This test has not been cleared or approved by the [place] d and Drug Administration. Specimen Anatomical Collection Method Collection Time Receive d Time (Source) Location / / Volume Laterality Blood (Blood, 07/02/2018 8:45 AM 07/03/20 18 4:13 Venous) CDT PM CDT N[facility]ative [facility] 07/07/2018 9:25 PM CDT Specimen Information: Specimen ID: [id number] Specimen Type: Blood Specimen Collection Start Date: 07/02/20 ??8:45 AM Specimen Received Date: 07/03/2018 ??4:1 3 PM Specimen ID: [id number] Specimen Type: Blood Specimen Collection Start Date: 07/02/20 ??8:45 AM Specimen Received Date: 07/03/2018 ??4:3 2 PM Emil Zurita M.D. LAB BLOOD NON ADD-ON Performing Organization Address City/State/ZIP Code Phon e Number [facility] [address] [place], [place] [address] [place] [address] 25-Hydroxyvitamin D2 and D3 (07/02/2018 8:45 AM CDT) athologist Signature 25-Hydroxy D2 <4.0 ng/mL 07/03/2018 [facility] 10:08 PM CDT [facility] 25-Hydroxy D3 24 ng/mL 07/03/2018 [facility] 10:08 PM CDT [facility] 25-Hydroxy D 24 ng/mL 07/03/2018 [facility] Total 10:08 PM CDT [facility] Comment: ----REFERENCE VALUE---- 25-HYDROXY D TOTAL (D2+D3) Optimum level s in the healthy population are 20-50, patients with bone disease may benefit from higher levels within this r stan. ----ADDITIONAL INFORMATION---- This test was developed and its performa nce characteristics determined by [facility] in a manner consistent with CLIA requirements. This test has not been cleared or approved by the [place] d and Drug Administration. Specimen Anatomical Collection Method Collection Time Receive d Time (Source) Location / / Volume Laterality Blood (Blood, 07/02/2018 8:45 AM 07/03/20 7:49 Venous) CDT AM CDT Authorizing Provider Result Deloris Zurita M.D. LAB BLOOD ADD-ON Performing Organization Address City/State/ZIP Code Phon e Number [facility] [address] [place], [place] [address] [facility] Creatinine with Estimated GFR (07/02/2018 8:45 AM CDT) athologist Signature Creatinine 1.01 0.74 - 07/02/2018 [facility] 1.35 mg/dL 11:10 AM CDT [employer] LAB eGFR-Non 73 >=60 07/02/2018 [facility] Black/ mL/min/BSA 11:10 AM CDT [employer] [facility] Comment: ----ADDITIONAL INFORMATION---- Estimated GFR calculated using the 2009 CKD_EPI creatinine equation. eGFR-Black/ 84 >=60 mL/min/BSA 2017 11:10 AM [facility] Comment: ----ADDITIONAL INFORMATION---- Estimated GFR calculated using the 2009 CKD_EPI creatinine equation. Specimen Anatomical Collection Method Collection Time Receive d Time (Source) Location / / Volume Laterality Blood (Blood, 07/02/2018 8:45 AM 07/02/20 Venous) CDT 10:37 AM CDT Emil Zurita M.D. LAB BLOOD ADD-ON Performing Organization Address City/State/ZIP Code Phon e Number [facility] [address] [place] [address] LAB Sodium (07/02/2018 8:45 AM CDT) athologist Signature Sodium, S 141 135 - 145 07/02/2018 [facility] mmol/L 11:10 AM CDT [facility] Specimen Anatomical Collection Method Collection Time Receive d Time (Source) Location / / Volume Laterality Blood (Blood, 07/02/2018 8:45 AM 07/02/20 18 Venous) CDT 10:37 AM CDT Emil Zurita M.D. LAB BLOOD ADD-ON Performing Organization Address City/State/ZIP Code Phon e Number [facility] [address] [place] [address] LAB Potassium (07/02/2018 8:45 AM CDT) athologist [facility] Potassium, S 4.6 3.6 - 5.2 07/02/2018 [facility] mmol/L 11:10 AM CDT [facility] LAB Specimen Anatomical Collection Method Collection Time Receive d Time (Source) Location / / Volume Laterality Blood (Blood, 07/02/2018 8:45 AM 07/02/20 18 Venous) CDT 10:37 AM CDT Emil Zurita M.D. LAB BLOOD ADD-ON Performing Organization Address City/State/ZIP Code Phon e Number [facility] [address] [place] [address] LAB CRP (C-Reactive Protein) (07/02/2018 8:45 AM CDT) [facility]-Reactive <3.0 <=8.0 mg/L 07/02/2018 [facility] Protein (CRP), 4:22 PM CDT [facility] Specimen Anatomical Collection Method Collection Time Receive d Time (Source) Location / / Volume Laterality Blood (Blood, 07/02/2018 8:45 AM 07/02/20 18 4:03 Venous) CDT PM CDT Emil Zurita M.D. LAB BLOOD ADD-ON Performing Organization Address City/State/ZIP Code Phon e Number [facility] [address] [place] [address] [facility] LAB (ABNORMAL) Thyroid Function [place] (07/02/2018 8:45 AM CDT) athologist [facility] TSH, Sensitive 5.1 (H) 0.3 - 4.2 07/02/2018 [facility] mIU/L 12:24 PM CDT [facility] LAB Comment: Biotin has been identified by the [...] Location / / Volume Laterality Blood (Blood, 07/02/2018 8:45 AM 07/02/20 18 Venous) CDT 10:37 AM CDT Emil Zurita M.D. LAB BLOOD ADD-ON Performing Organization Address City/[facility]/ZIP Code Phon e Number [facility] [address] [place] [address] LAB Celiac Disease Serology [place] (07/02/2018 8:45 AM CDT) Component Value Ref Test Analysis Performed At [facility] gist Range Method Time Signature Immunoglobulin A 151 61 - 07/03/2018 [facility] (IgA), S 356 8:15 AM LABORATORIES - mg/dL CDT [facility] Celiac Disease Negative serology. Celiac di sease unlikely. However, approximately 10% of 07/03/2018 [facility] Interpretation patients with celiac disease are seronegative. Also, patients who are already 10:25 PM LABORATORIES - adhering to a gluten-free diet may be seronegative. If melissa iac disease is CDT [facility] clinically suspected, consider HLA-DQ typing. MANTI Specimen Anatomical Collection Method Collection Time Receive d Time (Source) Location / / Volume Laterality Blood (Blood, 07/02/2018 8:45 AM 07/03/20 18 6:25 Venous) CDT AM CDT Emil Zurita M.D. LAB BLOOD ADD-ON Performing Organization Address City/State/ZIP Code Phon e Number [facility] LABORATORIES - [address] [place], [place] [address] [facility] documented in this encounter Visit Diagnoses Diagnosis Diarrhea - Primary Nausea Pancreatitis Chronic (HCC) Diarrhea documented in this encounter Additional Health Concerns Assessment Noted Time PHQ-9 Depression Total Score: 18 04/28/2018 11:27 AM C DT documented as of this encounter Care Teams Splitting Machine Tender Relationship Specialty Start Date End Date Ewa Alejandro M.D. PCP - General 03/13/17 01/09/202199 [address] [address] documented as of this encounter
--- OUTSIDE RECORDS SUMMARY | 2022-05-21 11:34 | XMS_ITS | Encounter Summary ---
:1945 Author Organization [facility] Address [address] [place] [address] Care Team Providers Name Role Phone Ewa Alejandro M.D. Primary Care Provider [phone] Encounter Details Date Type Department Care Team Description 04/28/2018 Hospital Encounter Department of [place] [facility] Laboratory Medicine Ewa brunson, Type 2 (HCC) in [place] [address] [place] [phone] Social History Tobacco Use Types Packs/Day [...] do you attend yazidism or Never 2021 yazidi services? Do you [...] by mouth 0 04/29/2016 mg tablet daily. escitalopram (LEXAPRO) Take 1 tablet (10 [...] 0 11/15/2008 (PRINIVIL,ZESTRIL) 10 daily. mg tablet LORazepam (ATIVAN) 0.5 Take 1 tablet (0.5 mg 15 tablet 0 01/21/2019 mg tablet total) by mouth at bedtime [...] Diagnosis Comme nts ALBUMIN, RANDOM, U Routine 04/28/2018 8:49 AM Diabetes Mellitu s Results for this CDT Type 2 (HCC) procedure are i n the results section. documented in this encounter Results (ABNORMAL) Microalbumin, Random, Urine (04/28/2018 8:49 AM CDT) [facility] Method Time Signature Microalbumin 613.6 mg/L 04/28/2018 [facility] 2:46 PM CDT [facility] LAB Creatinine 133 mg/dL 04/28/2018 [facility] 2:46 PM T [facility] LAB Albumin/Creatinin 461 (H) <17 mg/g 04/28/2018 [facility] e Ratio 2:46 PM CDT [facility] LAB Specimen Anatomical Collection Method Collection Time Receive d Time (Source) Location / / Volume Laterality Urine (Urine, 04/28/2018 8:49 AM 04/28/20 18 Clean Catch) CDT 10:59 AM CDT Ewa Alejandro M.D. LAB URINE ORDERABLES Performing Organization Address City/State/ZIP Code Phon e Number [facility] [address] [place] [address] LAB documented in this encounter Visit Diagnoses Diagnosis Diabetes Mellitus Type 2 (HCC) documented in this encounter Additional Health Concerns Assessment Noted Time PHQ-9 Depression Total Score: 18 04/28/2018 11:27 AM C DT documented as of this encounter Care Teams Cotton Ball Machine Tender Relationship Specialty Start Date End Date Ewa Alejandro M.D. PCP - General 03/13/17 01/09/[address] [address] documented as of this encounter
--- OUTSIDE RECORDS SUMMARY | 2022-05-21 11:34 | XMS_ITS | Encounter Summary ---
:1945 Author Organization [facility] Address [address] [place] [address] Care Team Providers Name Role Phone Ewa Alejandro M.D. Primary Care Provider [phone] Encounter Details Date Type Department Care Team Description 07/02/2018 Hospital Encounter Department of Jamaal Zurita ; Laboratory Medicine Rhoda Stein Pancreatitis Chronic (HCC) [place], [address] [place] [address] [address] [place], [place] [phone] (Work) [phone] Social History Tobacco Use Types Packs/Day Years [...] do you attend orthodoxy or Never 2021 hoahaoism services? Do you [...] slept in a long term (including now)? Sex Assigned at Date Recorded [...] Name Priority Date/Time Associated Diagnosis Comme nts GI PATHOGEN PANEL, Routine 07/10/2018 6:00 AM Diarrhea Res ults for this PCR, F CDT procedure are i n the results section. documented in this encounter Results GI Pathogen Panel, PCR, Feces (07/10/2018 6:00 AM CDT) [facility] Method Time Signature Specimen Source STOOL 07/10/2018 [facility] 8:[address] [facility] Campylobacter Negative Negative 07/10/2018 [facility] species 8:[address] [facility] C. difficile toxin Negative Negative 07/10/2018 [facility] 8:[address] [facility] Plesiomonas Negative Negative 07/10/2018 [facility] shigelloides 8:[address] [facility] Salmonella species Negative Negative 07/10/2018 [facility] 8:[address] [facility] Vibrio species Negative Negative 07/10/2018 [facility] 8:[address] [facility] Vibrio cholerae Negative Negative 07/10/2018 [facility] 8:[address] [facility] Yersinia species Negative Negative 07/10/2018 [facility] 8:[address] [facility] Enteroaggregative E. Negative Negative 07/10/2018 [facility] coli (EAEC) 8:[address] [facility] Enteropathogenic E. Negative Negative 07/10/2018 [facility] coli (EPEC) 8:[address] [facility] Enterotoxigenic E. Negative Negative 07/10/2018 [facility] coli (ETEC) 8:[address] [facility] Shiga toxin Negative Negative 07/10/2018 [facility] producing E. coli 8:[address] [facility] Shigella/Enteroinvas Negative Negative 07/10/2018 [facility] akil E. coli 8:[address] [facility] Cryptosporidium Negative Negative 07/10/2018 [facility] species 8:[address] [facility] Cyclospora Negative Negative 07/10/2018 [facility] cayetanensis 8:[address] [facility] Entamoeba Negative Negative 07/10/2018 [facility] histolytica 8:[address] [facility] Giardia Negative Negative 07/10/2018 [facility] 8:[address] [facility] Adenovirus F40/41 Negative Negative 07/10/2018 [facility] 8:[address] [facility] Astrovirus Negative Negative 07/10/2018 [facility] 8:[address] [facility] Norovirus GI/GII Negative Negative 07/10/2018 [facility] 8:[address] [facility] Rotavirus Ag, F Negative Negative 07/10/2018 [facility] 8:[address] [facility] Sapovirus Negative Negative 07/10/2018 [facility] 8:[address] [facility] Comment: ----ADDITIONAL INFORMATION---- This assay is performed using the FDA-cl eared FilmArray GI Panel ([employer] Specimen Anatomical Collection Method Collection Time Receive d Time (Source) Location / / Volume Laterality Stool (Stool) 07/10/2018 6:00 AM 07/10/20 18 8:14 CDT PM CDT Emil Zurita M.D. LAB MICROBIOLOGY - GENERAL O RDERABLES Performing Organization Address City/State/[facility] Phon e Number [facility] [address] [place] [address] LAB documented in this encounter Visit Diagnoses Diagnosis Diarrhea Pancreatitis Chronic (HCC) documented in this encounter Additional Health Concerns Assessment Noted Time PHQ-9 Depression Total Score: 18 04/28/2018 11:27 AM C DT documented as of this encounter Care Teams Mold Polisher Relationship Specialty Start Date End Date Ewa Alejandro M.D. PCP - General 03/13/17 01/09/[address] [address] documented as of this encounter
--- OUTSIDE RECORDS SUMMARY | 2022-05-21 11:34 | XMS_ITS | Encounter Summary ---
:1945 Author Organization [facility] Address [address] [place] [address] Care Team Providers Name Role Phone Ewa Alejandro M.D. Primary Care Provider [phone] Encounter Details Date Type Department Care Team Description 04/21/2018 Nurse Triage Department of [facility], Alysha Duque Medicine, [facility], R.N. in [place], [place] [address] [place] [address] Social History Tobacco Use Types Packs/Day Years [...] do you attend rastafari or Never 2021 synagogue services? Do you [...] or slept in a custodial (including now)? Sex Assigned at Date Recorded Male 05/21/2018 2:34 PM CDT documented as of this encounter Plan of Treatment Not on filedocumented as of this encounter Visit Diagnoses Not on filedocumented in this encounter Care Teams Distillery Worker Relationship Specialty Start Date End Date Ewa Alejandro M.D. PCP - General 03/13/17 01/09/[address] [address] documented as of this encounter
--- OUTSIDE RECORDS SUMMARY | 2022-05-21 11:34 | XMS_ITS | Encounter Summary ---
:1945 Author Organization [facility] Address [address] [place] [address] Care Team Providers Name Role Phone Ewa Alejandro M.D. Primary Care Provider Encounter Details Date Type Department Care Team Description 05/12/2018 Clinical Communication Department of Family Kirill Torres [facility], Ewa Barclay, Clinic, in [place] [address] [place] [phone] Social History Tobacco Use Types Packs/Day Years [...] do you attend yazidism or Never 2021 gnosticism services? Do you [...] Miscellaneous Notes Telephone Encounter - Jacquie Hamilton LMauroP.N. - 05/12/2018 8:55 AM CDT . Telephone Encounter - Natasha Decker - 05/12/2018 8:52 AM CDT Mr. Costa would like Dr. Roy to know that he had a Great consultation with Dr. Martino. documented in this encounter Plan of Treatment Not on filedocumented as of this encounter Visit Diagnoses Not on filedocumented in this encounter Additional Health Concerns Assessment Noted Time PHQ-9 Depression Total Score: 18 04/28/2018 11:27 AM C DT documented as of this encounter Care Teams Airplane Patroller Relationship Specialty Start Date End Date Ewa Alejandro M.D. PCP - General 03/13/17 01/09/20 [address] [address] documented as of this encounter
--- OUTSIDE RECORDS SUMMARY | 2022-05-21 11:34 | XMS_ITS | Encounter Summary ---
:1945 Author Organization [facility] Address [address] [place] [address] Care Team Providers Name Role Phone Ewa Alejandro M.D. Primary Care Provider [phone] Reason for Visit Reason Comments Follow-up final episode of diarrhea oc cured on 02/22/2018 with patient now having upper abdominal discomfort Appointment Request (Routine) - Closed Specialty Diagnoses / Procedures Referred By Contact Refer red To Contact Family Medicine Referral ID Status Reason Start Date Expiration Date Visits Requ ested Visits Authorized [id number] Closed 02/18/2018 02/18/2019 1 1 Encounter Details Date Type Department Care Team Description 02/25/2018 Office Visit Department of Family Alicia ch (Primary Dx); Medicine, Ewa Turner, Joseffi ciency Renal; Clinic, [place] Diabetes Mellitus Type 2 (HCC) [place] [address] [place] [phone] Social History Tobacco Use Types Packs/Day Years [...] do you attend voodoo or Never 2021 methodist services? Do you belong to any clubs or No 10/09/2021 organizations such as voodoo groups, unions, [employer] or athletic groups, or school groups? How [...] Sign Reading Time Taken Comments Blood Pressure 120/58 02/25/2018 2:11 PM CDT Pulse 88 02/25/2018 2:11 PM CDT Temperature 36.6 ??C (97.9 ??F) 02/25/2018 2:11 PM CDT Respiratory Rate 20 02/25/2018 2:11 PM CDT Oxygen Saturation 97% 02/25/2018 2:11 PM CDT room ai r Inhaled Oxygen Concentration - - Weight 107 kg (235 lb 7.2 oz) 02/25/2018 2:11 PM CDT Height 188 cm (6' 2.02) 02/25/2018 2:11 PM CDT Body Mass Index 30.22 02/25/2018 2:11 PM CDT documented in this encounter Progress Notes Ewa Alejandro M.D. - 02/25/2018 2:15 PM CDT CHIEF COMPLAINT/ REASON FOR VISIT Recheck abdominal pain and diarrhea. HISTORY OF PRESENT ILLNESS Jonnathan Costa is a 72 y.o. male who presents to the clinic today for recheck abdominal pain and diarrhea. When he was seen on 02/16 Jonnathan had been having frequent, urgent episodes of diarrhea and abdominal discomfort. Workup included STAT CT scan of the abdomen/pelvis, labs and stool studies. He was found to have an elevated creatinine of 2.32 and elevated potassium of 5.5. CT scan showed no acute abnormality. The stool studies came back normal. He came back in for labs on 02/17 and his creatinine continued to be elevated at 2.22 and he subsequently went to [facility] for IV fluids. Labs were rechecked again on 02/19 with a creatinine within normal range at 1.49. Jonnathan stopped having loose stools on02/22. He has some ???aggravation?? in his upper abdomen that is bothersome for about 20 minutes a day with burping that tastes like bad eggs. The patient denies any additional questions or [...] sulfate 90 mcg/actuation aerosol powdr breath activated albuterol CFC free 90 mcg/inh inhalation aerosol See Instructions, 2 puff(s) Inhalation BID and every 2 hours if needed for cough or shortness of breath., PRN: Shortness of breath / Wheezing, 1 each, 11 Refill(s) ??? amLODIPine (for_NORVASC) 5 mg tablet Take 5 mg by mouth 2 (two) times a day. ??? atorvastatin (for_LIPITOR) 80 mg tablet Take 80 mg by mouth daily. ??? blood sugar diagnostic (ACCU-CHEK MIHAI PLUS TEST STRP) strips ??? budesonide-formoterol (for_SYMBICORT) 160-4.5 mcg/actuation inhaler Inhale 2 puffs as needed. ??? budesonide/formoterol fumarate (SYMBICORT INHL) Inhale 2 Inhalers 2 (two) times a day. ??? clopidogrel (PLAVIX) 75 mg tablet Take 1 tablet by mouth daily. ??? diphenoxylate-atropine (LOMOTIL) 2.5-0.025 mg per tablet Take 1 tablet by mouth 4 (four) times aday as needed for diarrhea. 40 tablet 1 ??? doxazosin (CARDURA) 4 mg tablet Take 1 tablet by mouth at bedtime. ??? insulin aspart (NovoLOG) 100 unit/mL injection Inject 20 Units under the skin 3 (three) times a day before meals. ??? insulin glargine (LANTUS) 100 unit/mL injection Inject 44 Units under the skin at bedtime. ??? liraglutide (for_VICTOZA) 0.6 mg/0.1 mL (18 mg/3 mL) injection Inject 1.8 mg under the skin daily. ??? losartan (for_COZAAR) 100 mg tablet Take 1 tablet by mouth daily. ??? lovastatin (MEVACOR) 40 mg tablet Take 2 tablets by mouth at bedtime. ??? metFORMIN (for_GLUCOPHAGE) 1,000 mg tablet Take 1 tablet by mouth 2 (two) times a day with meals. ??? MULTIVITAMIN ORAL Take 1 tablet by mouth daily. ??? omega-3 fatty acids-fish oil 300-1,000 mg capsule Take 1 g by mouth daily. ??? PEN NEEDLE, DIABETIC MISC Yani Fine 30 disposable needles. For use with Insulin Pens, 4 times daily ??? SYRINGE-NEEDLE,INSULIN,0.5 ML (INSULIN SYRINGE MISC) ??? traZODone (for_DESYREL) 50 mg tablet Take 50-100 mg by mouth at bedtime as needed for sleep. No current facility-administered medications for this visit. ALLERGIES Allergies Allergen Reactions ??? Doxycycline Rash ??? Penicillin Other (see comments) Cerner Listed no Reactions ??? Sulfa (Sulfonamide Antibiotics) Other (see comments) Cerner Listed no Reactions ??? Gadavist [Gadobutrol] GI intolerance Patient vomited after administration PAST MEDICAL / SURGICAL HISTORY Past Medical History: Diagnosis Date ??? Apnea Sleep Obstructive ??? Asthma (HCC) [facility] some degree of [facility]. ??? 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 ??? Diabetes Mellitus Type 2 With Diabetic Neuropathy (HCC) ??? Dysfunction Erectile ??? Hypercholesterolemia ??? Hyperplasia Prostate Benign Localized Without Obstruction ??? Hypertension Essential Primary ??? Polyp Colon Personal History Past Surgical History: Procedure Laterality Date ??? COLONOSCOPY 08/10/2013 repeat in [address] Hamm ??? CYSTOSTOMY 05/22/2016 Cystoscopy with removal of 2.5 cm tumor on the right bladder wall on 05/22/[address] Bernal. ??? EXTRACTION OF CATARACT N/A ??? LASER OF PROSTATE W/ GREEN LIGHT PVP 08/28/2016 Greenlight photoselective vaporization of the prostate and cystoscopy with bladder biopsy and fulguration of a 2cm area; 08/28/[address] Prasanna Bernal at [facility]. ??? TONSILLECTOMY N/A PREVENTIVE SERVICES Social History Substance Use Topics ??? Smoking status: Former Smoker Quit date: 1979 ??? Smokeless tobacco: Never Used ??? Alcohol use No VITAL SIGNS Vitals: 02/25/18 1411 BP: 120/58 Pulse: 88 Temp: 36.6 ??C Resp: 20 Height: 188 cm Weight: 106.8 kg SpO2: 97% TempSrc: Temporal Body mass index is 30.22 kg/m??. PHYSICAL EXAMINATION General: Patient is alert and oriented times three, in no acute distress, good hygiene and is dressed appropriately. ENT: Tympanic membranes are normal bilaterally. Oropharynx is without erythema or exudate. Nasal mucosa is without injection. Neck: Is without lymphadenopathy. Heart: Regular rate and rhythm without murmur. Lungs: Clear to auscultation. Abdomen: He has a sensation of fullness in the epigastrium with palpation but does not complain of pain. No masses palpated. Skin: No rashes or suspicious lesions noted on exposed skin. DIAGNOSTICS CT abdomen/pelvis obtained on 02/16/2018 at [facility]: FINDINGS: Abdomen: No liver lesions. Gallbladder is unremarkable. No bile duct dilation. No pancreatic mass orpancreatic duct dilation. Pancreatic parenchymal calcifications predominantly in the pancreatic head. No spleen lesions. No adrenal nodules. Kidneys enhance symmetrically. Parenchymal scarring in the lo wer pole of the left kidney. 1.7 cm above water attenuation lesion in the medial mid right kidney isunchanged in size. Several cysts and subcentimeter low- attenuation lesions which are too small to characterize in both kidneys are not significantly changed from prior. No hydronephrosis. No dilated bowel. Colonic diverticulosis. No pericolonic inflammatory change. Appendix is normal. Nofree fluid. No free intraperitoneal gas. No lymphadenopathy. Atherosclerosis. No abdominal aortic aneurysm. Small fat containing supraumbilical ventral hernia. Pelvis: Prostate is enlarged. No free fluid. No lymphadenopathy. Musculoskeletal: Degenerative changes of the spine. Degenerative changes of the sacroiliac joints with bridging osteophytes. Lower chest: Mitral annulus calcifications. IMPRESSION: 1. No acute findings in the abdomen or pelvis. 2. Colonic diverticulosis. ASSESSMENT / PLAN #1 Post gastroenteritis bloating This should resolve on its own. If symptoms persist he should return for re-evaluation. #2 Personal history of colon polyps He will be due for colonoscopy later this year in July. Follow up The patient will contact the clinic with any new or worsening symptoms. Twenty of the 25 minutes spent reviewing current symptoms, test results, and formulating treatment plan. This document serves as a record of services personally performed by Ewa Roy MD. It was created on their behalf by Lulu Roldan, a trained medical officer. The creation of this record is based on the scribe's personal observations and the provider's statements to them. This document has been christie cked and approved by the attending provider. documented in this encounter Plan of Treatment Not on filedocumented as of this encounter Visit Diagnoses Diagnosis Diarrhea - Primary Insufficiency Renal Diabetes Mellitus Type 2 (HCC) documented in this encounter Care Teams Product Development Actuary Relationship Specialty Start Date End Date Ewa Alejandro M.D. PCP - General 03/13/17 01/09/20 [address] [place] [phone] documented as of this encounter
--- OUTSIDE RECORDS SUMMARY | 2022-05-21 11:34 | XMS_ITS | Encounter Summary ---
:1945 Author Organization [facility] Address [address] [place] [address] Care Team Providers Name Role Phone Ewa Alejandro M.D. Primary Care Provider [phone] Encounter Details Date Type Department Care Team Description 07/02/2018 Ancillary Procedure Department of Kamala Zurita Personal Radiology in [place], [place] [address] [facility] [address] [place] [phone] Social History Tobacco Use Types Packs/Day Years [...] do you attend jewish or Never 2021 latter-day services? Do you [...] Procedure Name Priority Date/Time Associated Comments Diagnosis INTERPRETATION OF RAD - Routine 07/03/2018 7:38 Pancreatitis Result s for OUTSIDE CT ABDOMEN (most inpatients AM CDT Personal History t his procedure AND OR PELVIS and all are in the outpatients) results section. documented in this encounter Results Interpretation of Outside CT [...] encounter Visit Diagnoses Diagnosis Pancreatitis Personal History documented in this encounter Additional Health Concerns Assessment Noted Time PHQ-9 Depression Total Score: 18 04/28/2018 11:27 AM C DT documented as of this encounter Care Teams In File Operator Relationship Specialty Start Date End Date Ewa Alejandro M.D. PCP - General 03/13/17 01/09/[address] [address] documented as of this encounter
--- OUTSIDE RECORDS SUMMARY | 2022-05-21 11:34 | XMS_ITS | Encounter Summary ---
:1945 Author Organization [facility] Address [address] [place] [address] Care Team Providers Name Role Phone Shayla Alford D.O. Primary Care Provider Encounter Details Date Type Department Care Team Description 06/09/2018 Orders Only Department of Family Philip trimble Mellitus Type Medicine, Ewa Barclay, 2 (HCC) (Primary Dx) Clinic, in [place] [address] [place] [phone] Social History Tobacco Use Types Packs/Day [...] do you attend anabaptism or Never 2021 buddhism services? Do you [...] Pending 01/24/2020 01/24/2020 01/25/2020 12:58 AM CDT COVID19 Pending 03/04/2020 03/04/2020 03/04/2020 7:57 PM CDT COVID19 Pending 03/29/2020 03/29/2020 03/30/2020 4:56 AM CDT COVID19 Pending 05/03/2020 05/03/2020 05/03/2020 10:07 PM CDT COVID19 Pending 06/09/2020 06/09/2020 06/09/2020 9:05 PM CDT COVID19 Pending 08/21/2020 08/21/2020 08/22/2020 6:39 AM PINKING MACHINE OPERATOR COVID19 Pending 12/23/2020 12/24/2020 12/25/2020 2:43 PM CDT Assessment Noted Time PHQ-9 Depression Total Score: 18 04/28/2018 11:27 AM C DT documented as of this encounter Care Teams Lighting Technician Relationship Specialty Start Date End Date Shayla Alford D.O. PCP - General Internal Medicine 05/22/[address] [address] [phone] (work) documented as of this encounter
--- OUTSIDE RECORDS SUMMARY | 2022-05-21 11:34 | XMS_ITS | Encounter Summary ---
:1945 Author Organization [facility] Address [address] [place] [address] Care Team Providers Name Role Phone Ewa Alejandro M.D. Primary Care Provider [phone] Encounter Details Date Type Department Care Team Description 06/22/2018 Clinical Communication Department of Anjana Boateng, Medicine, [facility], [facility], [address] [place], [place] [address] [facility] [address] [place], [place] [phone] (Work) [phone] Social History Tobacco Use Types Packs/Day Years [...] do you attend confucianist or Never 2021 amish services? Do you [...] Telephone Encounter - Jacquie Hamilton L.P.N. - 06/22/2018 2:43 PM CDT Patient notified Addendum Note - Petr Dial APRN, C.N.P. - 06/22/2018 2:13 PM CDT Addended by: PETR DIAL on: 06/22/2018 02:13 PM Modules accepted: Orders Telephone Encounter - Jacquie Hamilton L.P.N. - 06/22/2018 2:02 PM CDT Patient seen at [facility] pharmacy for medication review related to recent hospitalization for chronic diarrhea with nausea and vomiting. Per pharmacist recommendation please change patients medication metforman 1000 mg bid to metforman ER 1000 mg bid and fax new prescription for 90 day supply to [facility] is recommendation is approved. Patient also requesting to be updated on prescription status documented in this encounter Plan of Treatment Not on filedocumented as of this encounter Visit Diagnoses Not on filedocumented in this encounter Additional Health Concerns Assessment Noted Time PHQ-9 Depression Total Score: 18 04/28/2018 11:27 AM C DT documented as of this encounter Care Teams Wool Grower Relationship Specialty Start Date End Date Ewa Alejandro M.D. PCP - General 03/13/17 01/09/20 [address] [address] documented as of this encounter
--- OUTSIDE RECORDS SUMMARY | 2022-05-21 11:34 | XMS_ITS | Encounter Summary ---
:1945 Author Organization [facility] Address [address] [place] [address] Care Team Providers Name Role Phone Ewa Alejandro M.D. Primary Care Provider [phone] Encounter Details Date Type Department Care Team Description 07/02/2018 Hospital Encounter Department of Laboratory Emil Zurita, Diarrhea Medicine in [place] [address] [id number] [phone] Social History Tobacco Use Types Packs/Day Years [...] do you attend judaism or Never 2021 bahai services? Do you [...] Procedure Name Priority Date/Time Associated Comments Diagnosis T4 (THYROXINE), FREE, S Routine 07/02/2018 8:45 R esults for this AM CDT procedure are i n the results section. VITAMIN A AND VITAMIN E, Routine 07/02/2018 8:45 Diarrhea Results for this S AM CDT procedure are i n the results section. THYROID FUNCTION Routine 07/02/2018 8:45 Diarrhea Results for this CASCADE, S AM CDT procedure are i n the results section. CELIAC DISEASE SEROLOGY Routine 07/02/2018 8:45 Diarrhea R esults for this CASCADE, S AM CDT procedure are i n the results section. TISSUE TRANSGLUTAMINASE Routine 07/02/2018 8:45 R esults for this (TTG) AB, IGA, S AM CDT procedure a re in the results section. 25-HYDROXYVITAMIN D2 AND Routine 07/02/2018 8:45 Diarrhea Results for this D3, S AM CDT procedure are i n the results section. C-REACTIVE PROTEIN Routine 07/02/2018 8:45 Diarrhea Result s for this (CRP), S/P AM CDT procedure are i n the results section. SODIUM, S/P Routine 07/02/2018 8:45 Diarrhea Results for this AM CDT procedure are i n the results section. POTASSIUM, S/P Routine 07/02/2018 8:45 Diarrhea Results fo r this AM CDT procedure are i n the results section. CREATININE WITH EGFR, Routine 07/02/2018 8:45 Diarrhea Res ults for this S/P AM CDT procedure are i n the results section. THYROPEROXIDASE AB, S Routine 07/02/2018 8:32 Res ults for this AM CDT procedure are i n the results section. CBC WITH DIFFERENTIAL, B Routine 07/02/2018 8:32 Results for this AM CDT procedure are i n the results section. documented in this encounter Results tTG (Tissue Transglutaminase), Antibody, IgA (07/02/2018 8:45 AM CDT) [facility] Method Time Signature Tissue <1.2 <4.0 07/03/2018 [facility] Transglutaminase Ab, (Negative 12:51 PM LABORATOR IES - IgA, S ) U/mL CDT [facility] Specimen Anatomical Collection Method Collection Time Receive d Time (Source) Location / / Volume Laterality Blood 07/02/2018 8:45 AM 8 CDT 12:51 PM CDT Emil Zurita M.D. LAB BLOOD ADD-ON Performing Organization Address City/State/ZIP Code Phon e Number [facility] - [address] [facility] [place] [address] [facility] T4 (Thyroxine), Free, Serum (07/02/2018 8:45 AM CDT) athologist Signature T4 (Thyroxine), 1.2 0.9 - 1.7 07/02/2018 [facility] Free, S ng/dL 2:12 PM CDT [facility] Comment: Biotin has been identified [...] (Source) Location / / Volume Laterality Blood 07/02/2018 8:45 AM 8 CDT 10:37 AM CDT Emil Zurita M.D. LAB BLOOD ADD-ON Performing Organization Address City/State/ZIP Code Phon e Number [facility] [address], [place] [address] LAB Vitamin A and Vitamin E (07/02/2018 8:45 AM CDT) athologist Signature Vitamin A 60.0 32.5 - 78.0 07/07/2018 [facility] mcg/dL 2:[address] [facility] Comment: ----ADDITIONAL INFORMATION---- This test was developed and its performa nce characteristics determined by [facility] in a manner consistent with CLIA requirements. This test has not been cleared or approved by the [place] and Drug Administration. A-Tocopherol, Vitamin E 14.1 5.5 - 17.0 07/07/2018 9:25 PM [facility] mg/L CDT [facility] Comment: ----ADDITIONAL INFORMATION---- This test was developed and its performa nce characteristics determined by [facility] in a manner consistent with CLIA requirements. This test has not been cleared or approved by the [place] and Drug Administration. Specimen Anatomical Collection Method Collection Time Receive d Time (Source) Location / / Volume Laterality Blood (Blood, 07/02/2018 8:45 AM 07/03/20 4:13 Venous) CDT PM CDT [facility]ative [facility] 07/07/2018 9:25 PM CDT Specimen Information: Specimen ID: [id number] Specimen Type: Blood Specimen Collection Start Date: 07/02/20 ??8:45 AM Specimen Received Date: 07/03/2018 ??4:1 3 PM Specimen ID: [id number] Specimen Type: Blood Specimen Collection Start Date: 07/02/20 ??8:45 AM Specimen Received Date: 07/03/2018 ??4:3 2 PM Emil Zurita M.D. LAB BLOOD NON ADD-ON Performing Organization Address City/[facility] Code Phon e Number [facility] [address] [place] [address] [facility] 25-Hydroxyvitamin D2 and D3 (07/02/2018 8:45 AM CDT) athologist Signature 25-Hydroxy D2 <4.0 ng/mL 07/03/2018 [facility] 10:[address] [facility] 25-Hydroxy D3 24 ng/mL 07/03/2018 [facility] 10:[address] [facility] 25-Hydroxy D 24 ng/mL 07/03/2018 [facility] Total 10:[address] [facility] Comment: ----REFERENCE VALUE---- 25-HYDROXY D TOTAL (D2+D3) Optimum level s in the healthy population are 20-50, patients with bone disease may benefit from higher levels within this r stan. ----ADDITIONAL INFORMATION---- This test was developed and its performa nce characteristics determined by [facility] in a manner consistent with CLIA requirements. This test has not been cleared or approved by the [place] d and Drug Administration. Specimen Anatomical Collection Method Collection Time Receive d Time (Source) Location / / Volume Laterality Blood (Blood, 07/02/2018 8:45 AM 07/03/20 7:49 Venous) CDT AM CDT Emil Zurita M.D. LAB BLOOD ADD-ON Performing Organization Address City/[facility] Phon e Number [facility] [address] [place], [place] [address] [facility] Creatinine with Estimated GFR (07/02/2018 8:45 AM CDT) athologist Signature Creatinine 1.01 0.74 - 07/02/2018 [facility] 1.35 mg/dL 11:10 AM [facility] LAB eGFR-Non 73 >=60 07/02/2018 [facility] Black/ mL/min/BSA 11:10 AM [facility] [place] [facility] Comment: ----ADDITIONAL INFORMATION---- Estimated GFR calculated using the 2009 CKD_EPI creatinine equation. eGFR-Black/ 84 >=60 mL/min/BSA 2017 11:10 AM [facility] Comment: ----ADDITIONAL INFORMATION---- Estimated GFR calculated using the 2009 CKD_EPI creatinine equation. Specimen Anatomical Collection Method Collection Time Receive d Time (Source) Location / / Volume Laterality Blood (Blood, 07/02/2018 8:45 AM 07/02/20 18 Venous) CDT 10:37 AM CDT Emil Zurita M.D. LAB BLOOD ADD-ON Performing Organization Address City/State/ZIP Code Phon e Number [facility] [address] [place] [address] LAB Sodium (07/02/2018 8:45 AM CDT) athologist Signature Sodium, S 141 135 - 145 07/02/2018 [facility] mmol/L 11:10 AM T [facility] Specimen Anatomical Collection Method Collection Time Receive d Time (Source) Location / / Volume Laterality Blood (Blood, 07/02/2018 8:45 AM 07/02/20 18 Venous) CDT 10:37 AM CDT Emil Zurita M.D. LAB BLOOD ADD-ON Performing Organization Address City/State/[facility] Code Phon e Number [facility] [address] [place] [address] LAB Potassium (07/02/2018 8:45 AM CDT) athologist Signature Potassium, S 4.6 3.6 - 5.2 07/02/2018 [facility] mmol/L 11:10 AM CDT [facility] Specimen Anatomical Collection Method Collection Time Receive d Time (Source) Location / / Volume Laterality Blood (Blood, 07/02/2018 8:45 AM 07/02/20 Venous) CDT 10:37 AM CDT Authorizing Provider Result Deloris Zurita M.D. LAB BLOOD ADD-ON Performing Organization Address City/State/ZIP Code Phon e Number [facility] [address] [place] [address] LAB CRP (C-Reactive Protein) (07/02/2018 8:45 AM CDT) athologist Signature C-Reactive <3.0 <=8.0 mg/L 07/02/2018 [facility] Protein (CRP), 4:22 PM CDT [facility] Specimen Anatomical Collection Method Collection Time Receive d Time (Source) Location / / Volume Laterality Blood (Blood, 07/02/2018 8:45 AM 07/02/20 4:03 Venous) CDT PM CDT Emil Zurita M.D. LAB BLOOD ADD-ON Performing Organization Address City/State/ZIP Code Phon e Number [facility]- [address] [place] [address] [facility] LAB (ABNORMAL) Thyroid Function [place] (07/02/2018 8:45 AM CDT) athologist Signature TSH, Sensitive 5.1 (H) 0.3 - 4.2 07/02/2018 [facility] mIU/L 12:24 PM CDT [facility] Comment: Biotin has been identified [...] M.D. LAB BLOOD ADD-ON Performing Organization Address City/[facility]/ZIP Code Phon e Number [facility] [place] [address] [place] [address] LAB Celiac Disease Serology [place] (07/02/2018 8:45 AM CDT) Component Value Ref Test Analysis Performed At [facility] Method Time Signature Immunoglobulin A 151 61 - 07/03/2018 [facility] (IgA), S 356 8:15 AM LABORATORIES - mg/dL CDT [facility] Celiac Disease Negative serology. Celiac di sease unlikely. However, approximately 10% of 07/03/2018 [facility] Interpretation patients with celiac disease are seronegative. Also, patients who are already 10:25 PM LABORATORIES - adhering to a gluten-free diet may be seronegative. If melissa iac disease is CDT [facility] clinically suspected, consider HLA-DQ typing. CAMPUS Specimen Anatomical Collection Method Collection Time Receive d Time (Source) Location / / Volume Laterality Blood (Blood, 07/02/2018 8:45 AM 07/03/20 18 6:25 Venous) CDT AM CDT Emil Zurita M.D. LAB BLOOD ADD-ON Performing Organization Address City/[facility]/ZIP Code Phon e Number [facility] - [address] [place] [address] [facility] Thyroperoxidase (TPO) Antibodies, Serum (07/02/2018 8:32 AM CDT) [facility] Method Time Signature Thyroperoxidase Ab, 0.9 <9.0 07/03/2018 [facility] IC S IU/mL 8:28 AM CDT LABORATORIES - [facility] Specimen Anatomical Collection Method Collection Time Receive d Time (Source) Location / / Volume Laterality Blood 07/02/2018 8:32 AM 8 7:45 CDT AM CDT Emil Zurita M.D. LAB BLOOD NON ADD-ON Performing Organization Address City/[facility]/ZIP Code Phon e Number [facility] - [address] (ABNORMAL) CBC with Differential, Blood (07/02/2018 8:32 AM CDT) [facility] Method Time Signature Hemoglobin 12.1 (L) 13.2 - 07/02/2018 [facility] 16.6 g/dL 10:45 AM CDT [facility] Hematocrit 34.9 (L) 38.3 - 07/02/2018 [facility] 48.6 % 10:45 AM CDT [facility] Erythrocytes 4.01 (L) 4.35 - 07/02/2018 [facility] 5.65 10:45 AM CDT [facility] [place] [facility] MCV 87.0 78.2 - 07/02/2018 [facility] 97.9 fL 10:45 AM CDT [facility] RBC Distrib Width 12.8 11.8 - 07/02/2018 [facility] 14.5 % 10:45 AM CDT [facility] Platelet Count 209 135 - 317 07/02/2018 [facility] x10(9)/L 10:45 AM CDT [facility] Leukocytes 6.1 3.4 - 9.6 07/02/2018 [facility] x10(9)/L 10:45 AM CDT [facility] Neutrophils 3.97 1.56 - 07/02/2018 [facility] 6.45 10:45 AM CDT [facility] [place] [facility] Lymphocytes 1.24 0.95 - 07/02/2018 [facility] 3.07 10:45 AM CDT [facility] [place] [facility] Monocytes 0.38 0.26 - 07/02/2018 [facility] 0.81 10:45 AM CDT [facility] [place] Eosinophils 0.50 (H) 0.03 - 07/02/2018 [facility] 0.48 10:45 AM CDT [facility] [place] [facility] Basophils 0.03 0.01 - 07/02/2018 [facility] 0.08 10:45 AM CDT [facility] [place] [facility] Specimen Anatomical Collection Method Collection Time Receive d Time (Source) Location / / Volume Laterality Blood 07/02/2018 8:32 AM 8 CDT 10:40 AM CDT Emil Zurita M.D. LAB BLOOD ADD-ON Performing Organization Address City/State/ZIP Code Phon e Number [facility] [place] [address] [place] [address] LAB documented in this encounter Visit Diagnoses Diagnosis Diarrhea documented in this encounter Additional Health Concerns Assessment Noted Time PHQ-9 Depression Total Score: 18 04/28/2018 11:27 AM C DT documented as of this encounter Care Teams Fuel Handler Relationship Specialty Start Date End Date Ewa Alejandro M.D. PCP - General 03/13/17 01/09/202199 [place] [phone] documented as of this encounter
--- OUTSIDE RECORDS SUMMARY | 2022-05-21 11:34 | XMS_ITS | Encounter Summary ---
:1945 Author Organization [facility] Address [address] [place] [address] Care Team Providers Name Role Phone Ewa Alejandro M.D. Primary Care Provider [phone] Reason for Visit Reason Comments Diarrhea complains of vomitting, diar jing, fatigue, and headaches since September - would like a 2nd opinion - h as been seeing Dr. Lawson for this Appointment Request (Routine) - Closed Specialty Diagnoses / Procedures Referred By Contact Refer red To Contact Community Internal Medicine Referral ID Status Reason Start Date Expiration Date Visits Requ ested Visits Authorized [id number] Closed 05/11/2018 05/11/2019 1 1 Encounter Details Date Type Department Care Team Description 05/12/2018 Office Visit Department of Azeem Martino M.D . Nausea And Vomiting (Primary Dx); Community Internal [address], [place]; Medicine in [place] [address] Fatigue; [place], [place], [place] Headache; [address] [address] Pancreatitis Chronic Recurrent (HCC); [facility] Reaction Drug Adverse Initial; [id number] Diabetes Mellitus Type 2 Wit h Diabetic Neuropathy (HCC); [phone] Hypertension Es sential Primary; Stroke (HCC) Social History Tobacco Use Types Packs/Day [...] do you attend holiness or Never 2021 synagogue services? Do you [...] Sign Reading Time Taken Comments Blood Pressure 134/77 05/12/2018 8:03 AM CDT Pulse 70 05/12/2018 8:03 AM CDT Temperature 36.7 ??C (98.1 ??F) 05/12/2018 8:01 AM CDT Respiratory Rate 16 05/12/2018 8:01 AM CDT Oxygen Saturation - - Inhaled Oxygen Concentration - - Weight 105 kg (231 lb 4.2 oz) 05/12/2018 8:01 AM CDT Height 188 cm (6' 2.02) 05/12/2018 8:01 AM CDT Body Mass Index 29.68 05/12/2018 8:01 AM CDT documented in this encounter Progress Notes Azeem Martino M.D. - 05/12/2018 8:00 AM CDT SUBJECTIVE CHIEF COMPLAINT/REASON FOR VISIT 1. Diarrhea. 2. Nausea and Vomiting. HISTORY OF PRESENT ILLNESS Jonnathan Costa is a 72 y.o. male who presents to the clinic today with his for diarrhea,nausea and vomiting. His primary care provider is Dr. Ewa Roy. He has been sick since 10/17/2017, at which time food did not taste good. He has had diarrhea, nausea, vomiting, dizziness, and headaches intermittently since then. His symptoms worsened about three months ago. Because of diarrhea and vomiting, he lost 22 pounds in three weeks. He has good and bad days. His last episode of vomiting was two weeks ago. He has had few headaches. Patient denies any loss of vision, double vision, speech impairment, jaw pain, left or right sided weakness, or unsteadiness.He is a former smoker. He denies alcohol use. He has diabetes mellitus type 2. He is currently on NovoLog, Lantus, Victoza, and Metformin. Patientstates that his diabetes medication is managed by his clinical pharmacist at [facility]. He has been taking Metformin since 1990. He thinks he was started on Victoza around this year. He checks his blood sugar 3-7 times a day. His mood and anxiety have improved since taking Lexapro, which was started two weeks ago. He feels that correction has had an affect on his anxiety and stress. I reviewed results of his brain MRA/MRI from 09/17/2017, which showed 1. Chronic lacunar infarcts ofright cerebellum and hussein. 2. Normal variant head MRA. 3. Paranasal sinus disease appears acute. Patient had head CT on 04/22/2018. This demonstrated atherosclerotic calcification of the intracranial vessels particularly the vertebrobasilar arteries. He also had CT of the chest/abdomen/pelvis on 04/22/2018: 1. Pancreatic head calcification typical for previous pancreatitis. No evidence of pancreatic mass or acute pancreatitis. 2. Mild diverticulosis without evidence of diverticulitis. 3. Benign renal cysts and focal renal cortical wasting likely due to previous infection. Mild prostate enlargement. 4. 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 5. No acute abnormality noted in the chest abdomen or pelvis. I reviewed and updated his medication list. We discussed potential side effects. There are no additional questions, concerns, or complaints. CURRENT MEDICATIONS Current Outpatient Prescriptions Medication Sig Dispense Refill ??? albuterol sulfate 90 mcg/actuation aerosol powdr [...] (four) times aday as needed for diarrhea. ??? escitalopram (LEXAPRO) 10 mg tablet Take 1 tablet (10 mg total) by mouth daily. 30 tablet 11 ??? hydroCHLOROthiazide (HYDRODIURIL) 25 mg tablet Take 1 tablet (25 mg total) by mouth daily. 90 tablet 3 ??? insulin aspart (NovoLOG) 100 unit/mL injection Inject 20 Units under the skin 3 (three) times a day before meals. ??? insulin glargine (LANTUS) 100 unit/mL injection Inject 44 Units under the skin at bedtime. ??? LORazepam (ATIVAN) 0.5 mg tablet Take 1 tablet (0.5 mg total) by mouth at bedtime as needed for anxiety for up to 15 days. 15 tablet 0 ??? losartan (for_COZAAR) 100 mg tablet Take 1 tablet by mouth daily. ??? metFORMIN (for_GLUCOPHAGE) 1,000 mg tablet Take 1 tablet by mouth 2 (two) times a day with meals. ??? PEN NEEDLE, DIABETIC MISC Yani Fine 30 disposable needles. For use with Insulin Pens, 4 times daily ??? SYRINGE-NEEDLE,INSULIN,0.5 ML (INSULIN SYRINGE MISC) ??? albuterol (for_ACCUNEB) 2.5 mg /3 mL nebulizer solution Take 2.5 mg by nebulization every 6 (six) hours as needed for wheezing or shortness of breath. ??? omega-3 fatty acids-fish oil 300-1,000 mg capsule Take 1 g by mouth daily. No current facility-administered medications for this visit. ALLERGIES/CONTRAINDICATIONS Allergies Allergen Reactions ??? Doxycycline Rash ??? Penicillin Other (see comments) Abdulkadir Listed no Reactions ??? Sulfa (Sulfonamide Antibiotics) Other (see comments) Abdulkadir Listed no Reactions ??? Amlodipine Hypotension ??? Victoza 2-Eyal [Liraglutide] GI intolerance ??? Gadavist [Gadobutrol] GI intolerance Patient vomited after administration REVIEW OF SYSTEMS Please see history of present illness for pertinent positives, otherwise rest of review of systems negative. MEDICAL HISTORY Past Medical History: Diagnosis Date [...] 08/28/[address] Prasanna Bernal at the [facility]. ??? TONSILLECTOMY ??? VASECTOMY SOCIAL HISTORY Social History Social History ??? Marital status: Spouse name: N/A ??? Number of children: N/A ??? Years of education: N/A Occupational History ??? Retired Social History Main Topics ??? Smoking status: Former Smoker Quit date: 1979 ??? Smokeless tobacco: Never Used ??? Alcohol use No ??? Drug use: No ??? Sexual activity: Not Asked Other Topics Concern ??? None Social History Narrative ??? None FAMILY HISTORY Family History Problem Relation Age of Onset ??? Hypertension Mother ??? Heart attack Father age 76 ??? Asthma Sister ??? Asthma Brother ??? Asthma Son OBJECTIVE VITAL SIGNS Vitals: 05/12/18 0801 05/12/18 0803 BP: 141/71 134/77 Patient Position: Sitting Sitting Pulse: 69 70 Temp: 36.7 ??C Resp: 16 Height: 188 cm Weight: 104.9 kg TempSrc: Temporal PHYSICAL EXAMINATION General: Patient is sitting. No distress. Able to talk without interruption. Head: No facial rash, asymmetry or sinus tenderness. Eyes: PERRLA. EOMI. No pallor, icterus or conjunctivitis. He had bilateral cataract surgery. ENT: No nasal congestion, discharge or bleeding. There is no ear infection or discharge. No mastoid tenderness. Tongue is moist and midline. No oral lesions. Lymph nodes: No cervical or supraclavicular lymphadenopathy. Thyroid: No thyromegaly. No thyroid thrill or bruit. Peripheral vessels: Good radial pulses. No tachycardia. Heart: No carotid bruit. No JVD. Regular rhythm. There is no S3, gallop, murmur or thrill. Lungs: Normal respiratory effort. Clear to auscultation. Normal percussion. Abdomen: Moves with respiration. Bowel sounds present. Soft. No rebound tenderness, guarding or rigidity. No organomegaly. Spine: No scoliosis or kyphosis. No spinous tenderness or mass. Extremities: No clubbing, cyanosis, edema, infection or calf tenderness. Mental: Alert and oriented x 3. Normal mood and affect. Neuro: Grossly nonfocal. DIAGNOSTICS LABORATORY: 04/28/2018 08:48 04/28/2018 08:49 Sodium, S 138 Potassium, S 4.7 Chloride, S 104 Bicarbonate, S 23 Anion Gap 11 Bld Urea Nitrog(BUN), S 34 (H) Creatinine, S 1.31 eGFR-Non Black 53 (L) eGFR-Black 62 Calcium, Total 8.7 (L) Glucose, S 220 (H) Aspartate Aminotransferase (AST), S 17 Cholesterol, Total, S 193 Cholesterol, HDL, S 33 (L) Calculated LDL CANCELED Triglycerides, S 402 (H) Non HDL Cholesterol 160 (H) Hemoglobin A1c, B 8.9 (H) Microalbumin 613.6 Creatinine 133 Albumin/Creatinine Ratio 461 (H) ASSESSMENT / PLAN #1 Nausea And Vomiting #2 Diarrhea #3 Fatigue #4 Headache #5 Pancreatitis Chronic Recurrent (HCC) #6 Reaction Drug Adverse Initial Victoza Injection PLAN: We discussed possible etiologies, further evaluation and management. There is no acute abdomenclinically. No evidence of dehydration or intestinal obstruction. It is most likely due to chronic recurrent pancreatitis and side effects from Victoza. We discussed potential side effects of Victoza. He was advised to stop medication. He should drink plenty of water. If he has persistent or worseningsymptoms, he should have pancreas workup. #7 Diabetes Mellitus Type 2 With Diabetic Neuropathy (HCC) PLAN: He was advised to stop Victoza. He should discuss with his clinical pharmacist at [facility] regardingmedication change. He will continue current doses of Metformin, NovoLog, and Lantus. Patient was advised to continue current [place] [employer] diet and regular exercise. Self-management goals of diabetes mellitus were reviewed. #8 Hypertension Essential Primary PLAN: Blood pressure is controlled. Patient is stable from a cardiac standpoint. Need to continue sodium controlled diet and current medication. Monitor blood pressure regularly at home. Blood pressuregoal is less than 140/90 mmHg. Need to continue cardiovascular risk factors modification. #9 Stroke (HCC) PLAN: He has chronic lacunar infarcts of right cerebellum and hussein per MRI on 09/17/2017. This is most likely contributing to his unsteadiness. He was advised to be careful with his movements. We discussed symptoms and signs suggestive for stroke. #10 Discussed Test Results PLAN: I reviewed test results from 04/28/2018. All questions were answered. #11 Followup Visit PLAN: He should follow with his PCP, physicians and clinical pharmacist at [facility]. Return to the clinic as needed. Administrative Billing 40 minutes of this 45 minute visit was spent in face to face counseling and coordination of care. This document serves as a record of services personally performed by Dr. Azeem Martino. It was created on their behalf by Chad Varner, a trained medical concierge. The creation of this record is based on the scribe's personal observations and the provider's statements to them. This document has been checked and approved by the attending provider. documented in this encounter Plan of Treatment Not on filedocumented as of this encounter Visit Diagnoses Diagnosis Nausea And Vomiting - Primary Diarrhea Fatigue Headache Unspecified Pancreatitis Chronic Recurrent (HCC) Reaction Drug Adverse Initial 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) Hypertension Essential Primary Stroke (HCC) documented in this encounter Additional Health Concerns Assessment Noted Time PHQ-9 Depression Total Score: 18 04/28/2018 11:27 AM C DT documented as of this encounter Care Teams Plaster Helper Relationship Specialty Start Date End Date Ewa Alejandro M.D. PCP - General 03/13/17 01/09/[address] [place] [id number] documented as of this encounter
--- OUTSIDE RECORDS SUMMARY | 2022-05-21 11:34 | XMS_ITS | Encounter Summary ---
:1945 Author Organization [facility] Address [address] [place] [address] Care Team Providers Name Role Phone Ewa Alejandro M.D. Primary Care Provider [phone] Reason for Referral MRI/CAT/PET Scan (Routine) - Closed Specialty Diagnoses / Procedures Referred By Contact Refer red To Contact Radiology Diagnoses Diarrhea Dilation Pancreatic Duct Stone Pancreatic Duct Pancreatitis Chronic (HCC) Emil Zurita M.D. [facility] Procedures CT Abdomen Pelvis with IV Contrast CT Abdomen Pelvis without and with IV Contrast CT CT ABD&PELVIS WO/W [facility]TRST HC CT ABD&PELVIS WO/W [facility]ST CT CT ABD&PELVIS WO/W [facility]ST CT CT ABD&PELVIS W [facility] HC CT ABD&PELVIS W CNTRST [address] [facility] CT CT ABD&[place] [address] Referral ID Status Reason Start Date Expiration Date Visits Requ ested Visits Authorized [id number] Closed 07/10/2018 07/10/2019 1 1 Outpatient (Routine) - Closed Specialty Diagnoses / Referred By Referred To Cont act Procedures Contact Gastroenterology and Diagnoses Diarrhea Dilation Pancreatic Duct Stone Pancreatic Duct Pancreatitis Chronic (HCC) Emil Zurita [facility] Hepatology [place] [address] [place] [address] Referral ID Status Reason Start Date Expiration Date Visits Requ ested Visits Authorized [id number] Closed 07/10/2018 07/10/2019 1 1 Scheduling Instructions Return after CT scan, and 48 hour stool test Reason for Visit Reason Comments Stool test diarrhea Pancreas Encounter Details Date Type Department Care Team Description 07/10/2018 Clinical Division of Parminder, Stool test Communication Gastroenterology in [facility], (diarrh ea); [place], [place] [facility] [address] [place] [address] [place] [address] Social History Tobacco Use Types Packs/Day Years [...] do you attend jew or Never 2021 taoism services? Do you [...] this encounter Miscellaneous Notes Telephone Encounter - Abi Tomasa Polly Nguyen. - 07/10/2018 12:[address] Zurita reviewed patients test results and the nurse phoned the patient to explain the results with recommendations. Labs reviewed showed mild anemia and borderline elevated TSH. Dr. Zurita recommends that he repeat CBC and TSH in three months with this local MD. Fat soluble vitamin levels werenormal and celiac serology was negative. DR. Zurita reviewed his outside CT scan which did show changes of chronic calcific pancreatitis with pancreatic stone and duct dilatation. Dr. Zurita would favor obtaining a pancreas (scan dedicated to looking at the pancreas) protocol (thin slice) CT scan here to rule out an underlying mass. The nurse also went over the need for a repeat 48 hour stool test as this was performed incorrectly.Patient had collected one day then went on vacation for 5 days and then collected the second day. The nurse explained the 48 hour stool test is an important component of evaluating chronic diarrhea. The interpretation of the test relies on proper collection. DR. Zurita recommended he repeat the stool test. Nurse instructed him on consecutive 48 hours to collect stool. DR. Zurita will see him in clinic after he completes the CT scan here and completes the stool testto discuss next steps. Name of test result(s): Labs, outside CT, inaccurate stool test, celiac serology, vitamin levels Test result information: mild anemia, borderline TSH, normal vitamin levels, negative celiac serology. Outside CT revealed chronic calcific pancreatitis, pancreatic stone and duct dilatation. Need for repeat stool fat test. Ordered by: DR. Zurita Date performed: 07/02/2018 Pending results: repeat stool fat test. He would like to pickup the container in [place]. Disposition/Recommendation: self-care appropriate at this time 07/10/2018. Follow up CBC and TSH with PCP In 3 months. Repeat 48 hour stool test, pancreas protocol CT here to rule out underlying mass. Return visit with DR. Zurita after CT and stool tests are completed. Education: patient/caller able to teach back Caller agreeable to plan of care: yes The following references were used: provider DR. Zurita documented in this encounter Plan of Treatment Scheduled Referrals Name Type Priority Associated Order Schedule Diagnoses Gastroenterology and Outpatient Routine Diarrhea Expected: Hepatology office visit Referral Dilation 06/29 (clinic) Pancreatic Duct (Approximate ), (HCC) Expires: Stone Pancreatic 07/10/2021 Duct (HCC) Pancreatitis Chronic (HCC) documented as of this encounter Results Creatinine with Estimated GFR (08/19/2018 1:16 PM PATIENT CENTERED CARE SPECIALIST) Analysis Performed At Patho logist Time Signature Creatinine 1.04 0.74 - 08/19/2018 [facility] 1.35 mg/dL 2:27 PM PATIENT CENTERED CARE SPECIALIST LABORATORIES - [facility] eGFR-Non 70 >=60 08/19/2018 [facility] Black/ mL/min/BSA 2:27 PM PATIENT CENTERED CARE SPECIALIST LABORATORIES - [facility] Comment: ----ADDITIONAL INFORMATION---- Estimated GFR calculated using the 2009 CKD_EPI creatinine equation. eGFR-Black/ 81 >=60 mL/min/BSA 08/19/2018 2:27 [facility] [place] PATIENT CENTERED CARE SPECIALIST LABORATOR[facility] - [facility] Comment: ----ADDITIONAL INFORMATION---- Estimated GFR calculated using the 2009 CKD_EPI creatinine equation. Specimen Anatomical Collection Method Collection Time Receive d Time (Source) Location / / Volume Laterality Blood (Blood, 08/19/2018 1:16 PM 08/19/20 18 1:43 Venous) PATIENT CENTERED CARE SPECIALIST PM PATIENT CENTERED CARE SPECIALIST Emil Zurita M.D. LAB BLOOD ADD-ON Performing Organization Address City/State/ZIP Code Phon e Number [facility] LABORATORIES - [address] [id number] [address] [facility] [address] Abdomen Pelvis with IV Contrast (08/19/2018 12:43 PM PATIENT CENTERED CARE SPECIALIST) Anatomical Region Laterality Modality Abdomen, Pelvis, Abdominal RST LOS, Abdominal ARZ LOS, N/A Computed Tomography Abdominal FLA LOS Specimen (Source) Anatomical Collection Method Collection Time Re ceived Time Location / / Volume Laterality 08/19/2018 1:29 PM PATIENT CENTERED CARE SPECIALIST Impressions 08/19/2018 1:48 PM PATIENT CENTERED CARE SPECIALIST IMPRESSION: ?? 1. Chronic calcific pancreatitis. Narrative 08/19/2018 1:48 PM PATIENT CENTERED CARE SPECIALIST EXAM: ??CT ABDOMEN PELVIS WITH IV CONTRAST [...] in course and calibe r. There is [id number] arthrosclerotic calcification of the aor ta and [...] in course and calibe r. There is [id number] arthrosclerotic calcification of the aor ta and branch vessels. There is soft tissue stranding within th e ventral abdominal subcutaneous tissue, unchanged. No suspicious osteolytic or osteoblastic lesions. 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 Chronic calcific pancreatitis. Emil Zurita M.D. IMG CT PROCEDURES Bile Acids, Bowel Dysfunction, 48 Hour, Feces (07/13/2018 2:30 PM CDT) athologist Signature Bile Acids, % 0.0 <=3.7 % 07/16/2018 [facility] CDCA + CA total 12:16 PM CDT LABORATORIES - [facility] Total Bile 138 <=2619 07/16/2018 [facility] Acids mcmol/48h 12:16 PM CDT LABORATORIES - [facility] Comment: ----ADDITIONAL INFORMATION---- This test was developed and its performa nce characteristics determined by [facility] in a manner consistent with CLIA requirements. This test has not been cleared or approved by the [place] d and Drug Administration. Specimen Anatomical Collection Method Collection Time Receive d Time (Source) Location / / Volume Laterality Stool (Stool) 07/13/2018 2:30 PM 07/15/20 18 CDT 10:33 AM CDT Emil Zurita M.D. LAB BODY FLUIDS AND STOOLS O RDERABLES Performing Organization Address City/State/ZIP Code Phon e Number [facility]ATORIES - [address] [place], [place] [address] [facility] documented in this encounter Visit Diagnoses Diagnosis Diarrhea - Primary Dilation Pancreatic Duct Stone Pancreatic Duct Pancreatitis Chronic (HCC) Diarrhea Dilation Pancreatic Duct Stone Pancreatic Duct Pancreatitis Chronic (HCC) documented in this encounter Additional Health Concerns Assessment Noted Time PHQ-9 Depression Total Score: 18 04/28/2018 11:27 AM C DT documented as of this encounter Care Teams Fire Boat Engineer Relationship Specialty Start Date End Date Ewa Alejandro M.D. PCP - General 03/13/17 01/09/[address] [address] documented as of this encounter
--- OUTSIDE RECORDS SUMMARY | 2022-05-21 11:34 | XMS_ITS | Encounter Summary ---
:1945 Author Organization [facility] Address [address] [place] [address] Care Team Providers Name Role Phone Ewa Alejandro M.D. Primary Care Provider Encounter Details Date Type Department Care Team Description 06/22/2018 Clinical Communication Department of Family [facility], [facility] [place] [address] [place] [phone] Social History Tobacco Use Types Packs/Day Years [...] do you attend alevism or Never 2021 yarsanism services? Do you [...] documented as of this encounter Care Teams Interactive Art Director Relationship Specialty Start Date End Date Ewa Alejandro M.D. PCP - General 03/13/17 01/09/20 [address] [address] documented as of this encounter
--- OUTSIDE RECORDS SUMMARY | 2022-05-21 11:34 | XMS_ITS | Encounter Summary ---
:1945 Author Organization [facility] Address [address] [place] [address] Care Team Providers Name Role Phone Ewa Alejandro M.D. Primary Care Provider [phone] Reason for Visit Reason Onset Date Comments Follow-up 05/21/2018 nausea, vomiting and diarrhea Encounter Details Date Type Department Care Team Description 05/21/2018 Clinical [facility], [facility] (ambrose hoffman, Communication Community Internal M.D. vomiting and Medicine in [address] diarrhea) Teresa Bryson, [facility] [address] [address] KOBI BRYSON [phone] [address] (Fax) [phone] Social History Tobacco Use Types Packs/Day Years [...] do you attend congregation or Never 2021 confucianist services? Do you [...] Telephone Encounter - Estelle Chau R.N. - 06/22/2018 9:27 AM CDT Patient called on 06/18/18, spoke with Tran Matias. Dr. Roy referred him to GI. See 06/18/18 clinical communication for update. Telephone Encounter - Estelle Chau R.N. - 05/22/2018 9:02 AM CDT Patient reports that his symptoms are improving, but slowly. He thinks things are on the mend. He requests a follow up call in about 1 month. He was in a meeting and unable to talk any further today. Telephone Encounter - Azeem Martino M.D. - 05/21/2018 4:40 PM CDT Please call him to find out how's he doing. Still having nausea, vomiting and diarrhea? documented in this encounter Plan of Treatment Not on filedocumented as of this encounter Visit Diagnoses Not on filedocumented in this encounter Additional Health Concerns Assessment Noted Time PHQ-9 Depression Total Score: 18 04/28/2018 11:27 AM C DT documented as of this encounter Care Teams Process Control Tech Relationship Specialty Start Date End Date Ewa Alejandro M.D. PCP - General 03/13/17 01/09/[address] [phone] documented as of this encounter
--- OUTSIDE RECORDS SUMMARY | 2022-05-21 11:34 | XMS_ITS | Encounter Summary ---
:1945 Author Organization [facility] Address [address] [place] [address] Care Team Providers Name Role Phone Ewa Alejandro M.D. Primary Care Provider [phone] Encounter Details Date Type Department Care Team Description 05/08/2018 Orders Only Department of [facility] Santhosh Whatley (Primary Dx) Medicine, [place] Ewa stephen M.D. [facility], in [facility] [address] [place], [place] [address] [facility] [place] [address] [place], [place] [phone] (Work) [phone] Social History Tobacco Use Types Packs/Day Years [...] do you attend shinto or Never 2021 confucianist services? Do you [...] documented as of this encounter Care Teams Biomass Boiler Operator Relationship Specialty Start Date End Date Ewa Alejandro M.D. PCP - General 03/13/17 01/09/[address] [place] [phone] documented as of this encounter
--- OUTSIDE RECORDS SUMMARY | 2022-05-21 11:34 | XMS_ITS | Encounter Summary ---
:1945 Author Organization [facility] Address [address] [place] [address] Care Team Providers Name Role Phone Ewa Alejandro M.D. Primary Care Provider [phone] Reason for Visit Reason Comments Anxiety [facility] er vis it on 04/20/2018 with final dx of depression and anxiety Depression Appointment Request (Routine) - Closed Specialty Diagnoses / Procedures Referred By Contact Refer red To Contact Family Medicine Referral ID Status Reason Start Date Expiration Date Visits Requ ested Visits Authorized [id number] Closed 04/22/2018 04/22/2019 1 Encounter Details Date Type Department Care Team Description 04/28/2018 Office Visit Department of Family Philip trimble Mellitus Type 2 (HCC) (Primary Dx); Medicine, Ewa Barclay, Anxiety; Clinic, in [place] Depressive Disorder [place] [address] [facility] [address] [place] [phone] Social History Tobacco Use Types Packs/Day Years [...] do you attend scientology or Never 2021 latter day services? Do you belong to any clubs or No 10/09/2021 organizations such as scientology groups, unions, fraBig Stage or athletic groups, or school groups? How [...] or slept in a alf (including now)? Sex Assigned at Date Recorded Male 05/21/2018 2:34 PM CDT documented as of this encounter Last Filed Vital Signs Vital Sign Reading Time Taken Comments Blood Pressure 122/66 04/28/2018 11:21 AM CDT Pulse 88 04/28/2018 11:21 AM CDT Temperature 36.7 ??C (98.1 ??F) 04/28/2018 11:21 AM CDT Respiratory Rate 20 04/28/2018 11:21 AM CDT Oxygen Saturation 97% 04/28/2018 11:21 AM CDT room a ir Inhaled Oxygen Concentration - - Weight 104 kg (229 lb 6.2 oz) 04/28/2018 11:21 AM CDT Height 188 cm (6' 2.02) 04/28/2018 11:21 AM CDT Body Mass Index 29.44 04/28/2018 11:21 AM CDT documented in this encounter Progress Notes Ewa Alejandro M.D. - 04/28/2018 11:15 AM CDT CHIEF COMPLAINT/ REASON FOR VISIT Chief Complaint Patient presents with ??? Anxiety [facility] er visit on 04/20/2018 with final dx of depression and anxiety ??? Depression HISTORY OF PRESENT ILLNESS Jonnathan Costa is a 72 y.o. male. The patient denies any additional questions or concerns at this time. He has a history of diabetes, hypertension, obstructive sleep apnea, and anxiety and depression. He was seen at the emergency department on 04/22 with headache and vomiting. He had related to ER physician that symptoms are sometimesassociated with stressful situations and indeed he has had increased stressors recently. He had an extensive evaluation which was negative for anything worrisome or acute and he was diagnosed with depressive disorder with anxiety. He was started on Osvpboq37 mg once daily. He was also given a small supply of lorazepam. This has been helpful. He feels that if he could just get his sleep straightened out he would feel much better. He has had longstanding difficulties with sleep. He can sometimes get to sleep sometimes not. He does fall asleep readily he will wake up frequently throughout the night and have difficulty getting back to sleep. Finds that he is very tired and out of sorts during the day.This is contributing to his mood difficulties. He has been diagnosed with obstructive sleep apnea. [facility] He was not able to tolerate this and has not used it. He is due for lab work to review is diabetes today. SYSTEMS REVIEW Please see HPI for pertinent [...] Take 1 tablet by mouth daily. ??? doxazosin (CARDURA) 4 mg tablet Take [...] 08/28/[address] Prasanna Bernal at the [facility]. ??? TONSILLECTOMY N/A PREVENTIVE SERVICES Social History Substance Use Topics ??? Smoking status: Former Smoker Quit date: 1979 ??? Smokeless tobacco: Never Used ??? Alcohol use No VITAL SIGNS BP 122/66 Pulse 88 Temp 36.7 ??C (Temporal) Resp 20 Ht 188 cm Wt 104.1 kg SpO2 97% Comment: room air BMI 29.44 kg/m?? PHYSICAL EXAMINATION General: Patient is alert and oriented times three, in no acute distress, good hygiene and is dressed appropriately. Lymph: Not palpably enlarged and no nodules are palpated. Heart: Regular rate and rhythm without murmur. Lungs: Clear to auscultation. Extremities: Within normal limits. Skin: No rashes or suspicious lesions noted on exposed skin. DIAGNOSTICS Records from [facility] Emergency Department are reviewed. ASSESSMENT / PLAN Clinical luck symptomatology likely related to the acute worsening of anxiety and depression. I agree with a addition of Lexapro 10 mg once daily and have given him a prescription. Have recommended therapy. He is reluctant. I agree that adequate sleep will be helpful. He found the lorazepam to be helpful but this is not a medication that should become chronic. I do agree to a small supply, 15 tablets, that he can use to help establish a new sleep pattern. An updated sleep study should be may also behelpful at the least a DME expert to review his device and offer suggestions for increased comfort. Diabetes Fasting labs are updated today. Follow up The patient will contact the clinic with any new or worsening symptoms. documented in this encounter Plan of Treatment Not on filedocumented as of this encounter Visit Diagnoses Diagnosis Diabetes Mellitus Type 2 (HCC) - Primary Anxiety Depressive Disorder documented in this encounter Additional Health Concerns Assessment Noted Time PHQ-9 Depression Total Score: 18 04/28/2018 11:27 AM C DT documented as of this encounter Care Teams Ladler Relationship Specialty Start Date End Date Ewa Alejandro M.D. PCP - General 03/13/17 01/09/20 [address] [place] [phone] documented as of this encounter
--- OUTSIDE RECORDS SUMMARY | 2022-05-21 11:34 | XMS_ITS | Encounter Summary ---
:1945 Author Organization [facility] Address [address] [place] [address] Care Team Providers Name Role Phone Ewa Alejandro M.D. Primary Care Provider [phone] Reason for Visit Reason Comments Follow-up bladder cancer Outpatient (Routine) - Closed Specialty Diagnoses / Procedures Referred By Contact Refer red To Contact Diagnoses Cancer Bladder Family History Prasanna Bernal M.D. [facility] Procedures Cystoscopy (specific provider) [address] [place] [address] Referral ID Status Reason Start Date Expiration Date Visits Requ ested Visits Authorized [id number] Closed 01/15/2018 07/14/2018 1 1 Encounter Details Date Type Department Care Team Description 05/21/2018 Procedure visit Department of Urology Prasanna Bernal, Cancer Bladder in [place] Personal History [place] [address] [facility] [address] [phone] Social History Tobacco Use Types Packs/Day Years [...] do you attend anglican or Never 2021 spiritism services? Do you belong to any clubs or No 10/09/2021 organizations such as anglican groups, unions, fraRecipharm or athletic groups, or school groups? How [...] Sign Reading Time Taken Comments Blood Pressure 138/68 05/21/2018 2:55 PM CDT Pulse 80 05/21/2018 2:55 PM CDT Temperature 37.5 ??C (99.5 ??F) 05/21/2018 2:55 PM CDT Respiratory Rate 16 05/21/2018 2:55 PM CDT Oxygen Saturation - - Inhaled Oxygen Concentration - - Weight - - Height - - Body Mass Index - - documented in this encounter Procedure Notes Prasanna Bernal M.D. - 05/21/2018 3:00 PM CDT CHIEF COMPLAINT / REASON FOR VISIT ?? CYSTOSCOPY REPORT ? INDICATION Bladder cancer. ??This is a 72-year-old male who had a transurethral resection of a bladder ??tumor located on the right lateral wall on May 22, 2016. 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 ??On August 28, 2016 ??he underwent ??his initial postoperativeevaluation and simultaneous ??GreenLight photoselective vaporization of the prostate. ?At this time he is doing ??well and [...] cm. Lateral lobes: ??Well resected with moderate apical tissue present. ? Middle lobe: ??Absent. Bladder [...] was obtained and will be sent for cytology and Urovysion(tm) fluorescence in situ hybridization (FISH or FUROC). ?Return to clinic in 6 months for repeat cystoscopy and bladdercancer surveillance. ? Electronically signed by: Prasanna Bernal M.D. 05/21/18 3:21 PM documented in this encounter Plan of Treatment Not on filedocumented as of this encounter Procedures Procedure Name Priority Date/Time Associated Diagnosis Comme nts CYTOLOGY NON-HYDROELECTRIC STATION CHIEF Routine 05/21/2018 3:31 PM Cancer Bladder Res ults for this CDT Personal History procedure a re in the results section. UROVYSION (R) FOR Routine 05/21/2018 3:31 PM Cancer Bladder Re sults for this BLADDER CANCER CDT Personal History procedure are in the results section. documented in this encounter Results UroVysion for Detection of Bladder Cancer, Urine (05/21/2018 3:31 PM CDT) Component Value Ref Test Analysis Performed At [facility] Range Method Time Signature Result Summary Negative 05/29/2018 [facility] 4:55 PM LABORATORIES - [facility] Karyotype No evidence of 05/29/2018 [facility] urothelial 4:55 PM LABORATORIES - carcinoma. [facility] Reason for Evaluate for 05/29/2018 [facility] referral urothelial 4:55 PM LABORATORIES - carcinoma. [facility] Specimen Varies 05/29/2018 [facility] 4:55 PM LABORATORIES - [facility] Source voided 05/29/2018 [facility] 4:55 PM [facility]ATORIES - [facility] Released By Miguelito Machuca 05/29/2018 [facility] Pato Crowell, 4:55 PM LABORATORIES - Ph.D. [facility] Interpretation This test result does not rule out the possibility t hat the 05/29/2018 [facility] patient may have a low-grade (i.e. grade 1 or 2) 4:55 PM LABORATORIES - non-invasive papillary urothelial carcinoma. Some patients [facility] with low grade non-invasive papillary urothelial carcinoma [place] do not have abnormalities with this FISH test. Comment: ----ADDITIONAL INFORMATION---- Fluorescence in situ hybridization (FISH ) with centromere probes for chromosomes 3 (D3Z1), 7(D7Z1), 17(D17Z1) , and a locus specific probe for 9p21. This test has been modified from the man ufacturer's instructions. Its performance characteristics were determi darnell by [facility] in a manner consistent with CLIA requirements. This test has not been cleared or approved by the U.S. Food and Drug Administration . Specimen Anatomical Collection Method Collection Time Receive d Time (Source) Location / / Volume Laterality Varies (Urine, 05/21/2018 3:31 PM 018 9:54 Voided) CDT AM CDT Narrative This result has an attachment that is no t available. Prasanna Bernal M.D. LAB GENETIC TESTING Performing Organization Address City/State/ZIP Code Phon e Number [facility] LABORATORIES - [address] [place], [place] [address] [facility] Cytology Non-HYDROELECTRIC STATION CHIEF (05/21/2018 3:31 PM CDT) Component Value Ref Test Analysis Performed At [facility] gist Range Method Time Signature Gross Description Received 40 05/22/2018 [facility] IC ml of yellow 2:35 PM CDT [facility] alcohol fixed [facility] CYTOLOGY Collection urine void 05/22/2018 [facility] Procedure 2:35 PM CDT [facility] CYTOLOGY Fixative no 05/22/2018 [facility] 2:35 PM CDT [facility] CYTOLOGY Source A. Urine, 05/22/2018 [facility] voided 2:35 PM CDT [facility] CYTOLOGY Clinical History bladder 05/22/2018 [facility] cancer 2:35 PM T [facility] CYTOLOGY Report Jose Khan MD 05/22/2018 [facility] electronically I verify that I have examined all relevant slides/ma terials 2:35 PM T [facility] signed by for the specimen(s) and rendered or confirmed [facility] 05/22/2018 [facility] 2:35 PM CDT [facility] CYTOLOGY Interpretation A. Urine, voided (cytospin): Negative for High-Grade 05/22/2018 [facility] Urothelial Carcinoma. 2:35 PM CDT [facility] CYTOLOGY Specimen Anatomical Collection Method Collection Time Receive d Time (Source) Location / / Volume Laterality Varies 05/21/2018 3:31 PM 8 8:42 CDT AM CDT Narrative This result has an attachment that is no t available. Prasanna Bernal M.D. LAB SURG PATH ORDERABLES Performing Organization Address City/State/ZIP Code Phon e Number [facility] [address] [place] [address] CYTOLOGY documented in this encounter Visit Diagnoses Diagnosis Personal History Of Malignant Neoplasm O f Bladder documented in this encounter Additional Health Concerns Assessment Noted Time PHQ-9 Depression Total Score: 18 04/28/2018 11:27 AM C DT documented as of this encounter Care Teams Gm Relationship Specialty Start Date End Date Ewa Alejandro M.D. PCP - General 03/13/17 01/09/20 [address], [place] [phone] documented as of this encounter
--- OUTSIDE RECORDS SUMMARY | 2022-05-21 11:34 | XMS_ITS | Encounter Summary ---
:1945 Author Organization [facility] Address [address] [place] [address] Care Team Providers Name Role Phone Ewa Alejandro M.D. Primary Care Provider Encounter Details Date Type Department Care Team Description 02/20/2018 Orders Only Department of Family Mata , [facility] [address] [place] [phone] (Wo rk) Social History Tobacco Use Types [...] do you attend sabianist or Never 2021 protestant services? Do you [...] on filedocumented in this encounter Care Teams Cleaning And Washing Equipment Operator Relationship Specialty Start Date End Date Ewa Alejandro M.D. PCP - General 03/13/17 01/09/20 [address] [place] [phone] documented as of this encounter
--- OUTSIDE RECORDS SUMMARY | 2022-05-21 11:34 | XMS_ITS | Encounter Summary ---
:1945 Author Organization [facility] Address [address] [place] [address] Care Team Providers Name Role Phone Piero Alejandro M.D. Primary Care Provider [phone] Reason for Referral Outpatient (Routine) - Closed Specialty Diagnoses / Referred By Referred To Cont act Procedures Contact Gastroenterology and Diagnoses Diarrhea Nausea Pancreatitis Chronic (HCC) [facility] Hepatology Piero walton M.D. [address] [place] [address] Referral ID Status Reason Start Date Expiration Date Visits V isits Requested Authorized [id number] Closed Specialty 06/18/2018 06/18/2019 1 1 Services Required Encounter Details Date Type Department Care Team Description 06/18/2018 Clinical Communication Department of [facility] Carlos, LMauroPJustina [facility], in [place], [address] [address] [place], [place] [phone] (Work) [phone] Social History Tobacco Use Types Packs/Day Years [...] do you attend yazidi or Never 2021 yarsani services? Do you belong to any clubs or No 10/09/2021 organizations such as yazidi groups, unions, fraReplenish or athletic groups, or school groups? How [...] encounter Miscellaneous Notes Telephone Encounter - Yadira Sexton, L.P.N. - 06/18/2018 1:37 PM CDT Notified Jonnathan of Dr. CHILO mathews and he is pleased to go that route and will be waiting for the call to scheduled ... Addendum Note - Piero Alejandro M.D. - 06/18/2018 12:38 PM CDT Addended by: PIERO ROJAS on: 06/18/2018 12:38 PM Modules accepted: Orders Telephone Encounter - Piero Alejandro M.D. - 06/18/2018 12:35 PM CDT I recommend a GI consultation. Order is in Telephone Encounter - Yadira Sexton L.P.NMauro - 06/18/2018 11:15 AM CDT Jonnathan would like to continue to search for the diagnosis for his daily diarrhea please, he does not need to go to [facility] but would like to get to the bottom of it... He has a good friend that ended up having intestinal cancer when he was seen for something and he just would like to find out what is truly causing this, its not normal.... documented in this encounter Plan of Treatment Scheduled Referrals Name Type Priority Associated Order Schedule Diagnoses Gastroenterology and Outpatient Routine Diarrhea Expected: Hepatology - General Referral Nausea 06/18/2018 consult (clinic) Pancreatitis (Approximat e), Chronic (HCC) Expires: 06/18/2021 documented as of this encounter Visit Diagnoses Diagnosis Diarrhea - Primary Nausea Pancreatitis Chronic (HCC) documented in this encounter Additional Health Concerns Assessment Noted Time PHQ-9 Depression Total Score: 18 04/28/2018 11:27 AM C DT documented as of this encounter Care Teams Yarn Washer Relationship Specialty Start Date End Date Piero Alejandro M.D. PCP - General 03/13/17 01/09/20 [address] [place] [phone] documented as of this encounter
--- OUTSIDE RECORDS SUMMARY | 2022-05-21 11:35 | XMS_ITS | Encounter Summary ---
:1945 Author Organization [facility] Address [address] [place] [address] Care Team Providers Name Role Phone Ewa Alejandro M.D. Primary Care Provider Encounter Details Date Type Department Care Team Description 02/17/2018 Hospital Encounter Department of Laboratory [facility] Medicine in [place] James Judy, M .D. [place] [address] [place] [phone] Social History Tobacco Use Types Packs/Day Years [...] do you attend holiness or Never 2021 jain services? Do you [...] tablet by 0 09/2015 tablet mouth daily. PEN NEEDLE, DIABETIC MISC Yani [...] (six) hours powdr breath activated as needed. amLODIPine (for_NORVASC) 5 Take 5 mg by mouth 0 05/08/2018 mg tablet 2 (two) times a day. budesonide-formoterol Inhale 2 puffs as 0 013 12/16/2019 (for_SYMBICORT) 160-4.5 needed. mcg/actuation inhaler budesonide/formoterol Inhale 2 Inhalers 2 0 09/1004/28/2018 fumarate (SYMBICORT INHL) (two) times a day. doxazosin (CARDURA) 4 mg Take 1 tablet by 0 12/3105/08/2018 tablet mouth at bedtime. gemfibroziL (LOPID) 600 mg Take 1 tablet by 0 11/06/2021 tablet mouth. hydroCHLOROthiazide Take 1 tablet by 0 10/07/2016 02/20/2018 (for_HYDRODIURIL) 25 mg mouth daily. tablet insulin aspart (NovoLOG) Inject 20 Units 0 201409/18/2018 100 unit/mL injection under the skin 3 (three) times a day before meals. insulin glargine (LANTUS) Inject 20 Units 0 01/3105/06/2020 100 unit/mL injection under the skin at bedtime. insulin NPH and regular LW Addl 0 11/15/2008 0 05/04/2020 human (HumuLIN 70/30 U-100 Instr:Indicated KwikPen) 100 unit/mL for: Diabetes (70-30) injection liraglutide (for_VICTOZA) Inject 1.8 mg under 0 05/12/2018 0.6 mg/0.1 mL (18 mg/3 mL) the skin daily. injection lisinopril Take 1 tablet by 0 11/15/2008 01/21/20 20 (PRINIVIL,ZESTRIL) 10 mg mouth. tablet lisinopriL Take 1 tablet by 0 11/15/2008 11/06/19 22 (PRINIVIL,ZESTRIL) 10 mg mouth daily. tablet losartan (for_COZAAR) 100 Take 50 mg by mouth 0 0 10/13/2013 05/06/2020 mg tablet daily. lovastatin (MEVACOR) 40 mg Take 2 tablets by 0 05/08/2018 tablet mouth at bedtime. metFORMIN (for_GLUCOPHAGE) Take 1 tablet by 0 06/22/2018 1,000 mg tablet mouth 2 (two) times a day with meals. metFORMIN (GLUMETZA) 1,000 Take 1 tablet by 0 11/07/2021 mg 24 hr tablet mouth daily. MULTIVITAMIN ORAL Take 1 tablet by 0 0 05/08/2018 mouth daily. omega-3 fatty acids-fish Take 1 g by mouth 0 03/15/2020 oil 300-1,000 mg capsule daily. traZODone (for_DESYREL) 50 Take 50-100 mg by 0 05/08/2018 mg tablet mouth at bedtime as needed for sleep. documented as of this encounter Plan of Treatment Not on filedocumented as of this encounter Visit Diagnoses Not on filedocumented in this encounter Care Teams Finishing Trimmer Relationship Specialty Start Date End Date Ewa Alejandro M.D. PCP - General 03/13/17 01/09/[address] [phone] documented as of this encounter
--- OUTSIDE RECORDS SUMMARY | 2022-05-21 11:35 | XMS_ITS | Encounter Summary ---
:1945 Author Organization [facility] Address [address] [place] [address] Care Team Providers Name Role Phone Ewa Alejandro M.D. Primary Care Provider Encounter Details Date Type Department Care Team Description 09/17/2017 Orders Only Department [facility] [address] [place] [phone] (Wo rk) Social History Tobacco Use Types [...] do you attend caodaism or Never 2021 christian services? Do you [...] on filedocumented in this encounter Care Teams Section Chief Relationship Specialty Start Date End Date Ewa Alejandro M.D. PCP - General 03/13/17 01/09/[address] [place] [phone] documented as of this encounter
--- OUTSIDE RECORDS SUMMARY | 2022-05-21 11:35 | XMS_ITS | Encounter Summary ---
:1945 Author Organization [facility] Address [address] [place] [address] Care Team Providers Name Role Phone Ewa Alejandro M.D. Primary Care Provider [phone] Reason for Visit Reason Comments Follow-up review labs completed on and cystology completed on 01/19/2018 Appointment Request (Routine) - Closed Specialty Diagnoses / Procedures Referred By Contact Refer red To Contact Family Medicine Referral ID Status Reason Start Date Expiration Date Visits Requ ested Visits Authorized [id number] Closed 01/19/2018 07/18/2018 1 1 Encounter Details Date Type Department Care Team Description 01/26/2018 Office Visit Department of Family Philip trimble Mellitus Type Medicine, Ewa Barclay, 2 (HCC) (Primary Dx) Clinic, in [place] [address] [place] [phone] Social History Tobacco Use Types Packs/Day Years [...] do you attend mandaeism or Never 2021 confucianism services? Do you belong to any clubs or No 10/09/2021 organizations such as mandaeism groups, unions, [employer] or athletic groups, or school groups? How [...] Sign Reading Time Taken Comments Blood Pressure 130/74 01/26/2018 9:25 AM CDT Pulse 76 01/26/2018 9:16 AM CDT Temperature 36.5 ??C (97.7 ??F) 01/26/2018 9:16 AM CDT Respiratory Rate 16 01/26/2018 9:16 AM CDT Oxygen Saturation - - Inhaled Oxygen Concentration - - Weight 110 kg (241 lb 15.3 oz) 01/26/2018 9:16 AM CDT Height 188 cm (6' 2.02) 01/26/2018 9:16 AM CDT Body Mass Index 31.05 01/26/2018 9:16 AM CDT documented in this encounter Progress Notes Ewa Alejandro M.D. - 01/26/2018 9:30 AM CDT CHIEF COMPLAINT/ REASON FOR VISIT Follow up diabetic labs. HISTORY OF PRESENT ILLNESS Jonnathan Costa is a 72 y.o. male who presents to the clinic today for follow up of diabetic labs. He had labs done on 01/22 which showed an elevated Hgb A1c on 9.1%, which is up from 06/2017, which was at 8.5%. He states that he has been checking his blood sugars and they have been averaging in the 100s. He states that in the past few weeks, his sugars have been lower than they have been in 10 years. He does not eat much in the evening. He reports that he does not feel well when his sugars getin the 110s-120s. He has started cutting out breads. Jonnathan is checking his blood sugars 5-6 times a day. He states yesterday morning his fasting blood sugar was 180, and he took 10 units of NovoLog andhis Victoza 1.8 mg. He then checked his blood sugar around noon and it was at 130. Then he checked at dinner and it was in the 300s. He states that for the last two months, he has not had much in the way of the diabetic nerve pain either. His diabetic medications include Lantus 24 units twice daily, Victoza 1.8 mg subcutaneously daily, and his NovoLog dose changes based on what his sugar is when he checks it. Jonnathan states that his blood sugars got out of range when he was recently ill with his blood pressureissues. He developed some severe dizziness and he discussed these concerns with Dr. Lala in Neurology. Dr. Lala thought that his blood pressure may have been too low for him to function normally. He states that once he stopped the previously prescribed antihypertensive, he slowly improved and he states that he feels good. The patient denies any additional questions or [...] / Wheezing, 1 each, 11 Refill(s) ??? atorvastatin (for_LIPITOR) 80 mg tablet Take 80 mg by mouth daily. ??? blood sugar diagnostic (ACCU-CHEK MIHAI PLUS TEST STRP) strips ??? budesonide-formoterol (for_SYMBICORT) 160-4.5 mcg/actuation inhaler Inhale 2 puffs as needed. ??? clopidogrel (PLAVIX) 75 mg tablet Take 1 tablet by mouth daily. ??? hydroCHLOROthiazide (for_HYDRODIURIL) 25 mg tablet Take 1 tablet by mouth daily. ??? insulin aspart (NovoLOG) 100 unit/mL injection [...] mouth at bedtime as needed for sleep. ??? amLODIPine (for_NORVASC) 5 mg tablet Take 5 mg by mouth 2 (two) times a day. ??? budesonide/formoterol fumarate (SYMBICORT INHL) Inhale 2 Inhalers 2 (two) times a day. ??? doxazosin (CARDURA) 4 mg tablet Take 1 tablet by mouth at bedtime. ??? lovastatin (MEVACOR) 40 mg tablet Take 2 tablets by mouth at bedtime. No current facility-administered medications for this visit. ALLERGIES Allergies Allergen Reactions ??? Doxycycline Rash ??? Penicillin Other (see comments) Abdulkadir Listed no Reactions ??? Sulfa (Sulfonamide Antibiotics) Other (see comments) Abdulkadir Listed no Reactions ??? Gadavist [Gadobutrol] GI intolerance Patient vomited after administration PAST MEDICAL / SURGICAL HISTORY Past Medical History: Diagnosis Date ??? Apnea Sleep Obstructive ??? Asthma NOS [facility] but probably some degree of [facility]. ??? 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 ??? Diabetes Mellitus Type 2 With Diabetic Neuropathy (HCC) ??? Dysfunction Erectile ??? Hypercholesterolemia ??? Hyperplasia Prostate Benign Localized Without Obstruction ??? Hypertension Essential Primary Past Surgical History: Procedure Laterality Date ??? CYSTOSTOMY 05/22/2016 Cystoscopy with removal of 2.5 cm tumor on the right bladder wall on 05/22/[address] Bernal. ??? EXTRACTION OF CATARACT N/A ??? LASER OF PROSTATE W/ GREEN LIGHT PVP 08/28/2016 Greenlight photoselective vaporization of the prostate and cystoscopy with bladder biopsy and fulguration of a 2cm area; 08/28/[address] Prasanna Bernal at the [facility]. ??? TONSILLECTOMY N/A PREVENTIVE SERVICES Social History Substance Use Topics ??? Smoking status: Former Smoker Quit date: 1979 ??? Smokeless tobacco: Never Used ??? Alcohol use No VITAL SIGNS Vitals: 01/26/18 0916 01/26/18 0925 BP: 142/60 130/74 Pulse: 76 Temp: 36.5 ??C Resp: 16 Height: 188 cm Weight: 109.8 kg TempSrc: Temporal Body mass index is 31.05 kg/m??. PHYSICAL EXAMINATION General: Patient is alert and oriented times three, in no acute distress, good hygiene and is dressed appropriately. HEENT: Tympanic membranes are normal bilaterally. Oropharynx is without erythema or exudate. Nasal mucosa is without injection. Neck is without adenopathy. Lymph: Not palpably enlarged and no nodules are palpated. Heart: Regular rate and rhythm without murmur. Lungs: Clear to auscultation. Abdomen: Soft and nontender with no masses. Extremities: Within normal limits. Skin: No rashes or suspicious lesions noted on exposed skin. DIAGNOSTICS Lab Results Component Value Date HGBA1C 9.1 (H) 01/22/2018 ASSESSMENT / PLAN #1 Diabetes Mellitus Type 2, not controlled We had a long discussion on the importance of managing his blood sugars. He will continue to monitorhis blood sugars and write these numbers down along with what type of insulin he uses at that time. Discussed the importance of trying to obtain some consistency in his eating habits. He will follow upin 3 months. Follow up The patient will contact the clinic with any new or worsening symptoms. ADMINISTRATIVE BILLING 35 minutes of this 40 minute visit was spent in face to face counseling and coordination of care. This document serves as a record of services personally performed by Ewa Roy MD. It was created on their behalf by Karen Givens, a trained medical manager. The creation of this record is based on the scribe's personal observations and the provider's statements to them. This document has been ch ecked and approved by the attending provider. documented in this encounter Plan of Treatment Not on filedocumented as of this encounter Results (ABNORMAL) Microalbumin, Random, Urine (04/28/2018 8:49 AM CDT) [facility] Method Time Signature Microalbumin 613.6 mg/L 04/28/2018 [facility] 2:46 PM CDT [facility] Creatinine 133 mg/dL 04/28/2018 [facility] 2:46 PM CDT [facility] Albumin/Creatinin 461 (H) <17 mg/g 04/28/2018 [facility] e Ratio 2:46 PM CDT [facility] Specimen Anatomical Collection Method Collection Time Receive d Time (Source) Location / / Volume Laterality Urine (Urine, 04/28/2018 8:49 AM 04/28/20 18 Clean Catch) CDT 10:59 AM CDT Ewa Alejandro M.D. LAB URINE ORDERABLES Performing Organization Address City/State/ZIP Code Phon e Number [facility] [address] [place] [id number] LAB (ABNORMAL) BMP (Basic Metabolic Panel) (04/28/2018 8:48 AM [facility]) P athologist Signature Potassium, S 4.7 3.6 - 5.2 04/28/2018 [facility] mmol/L 12:03 PM [facility] [place] [facility] Sodium, S 138 135 - 145 04/28/2018 [facility] mmol/L 12:03 PM [facility] Chloride, S 104 98 - 107 04/28/2018 [facility] mmol/L 12:03 PM [facility] Bicarbonate, S 23 22 - 29 04/28/2018 [facility] mmol/L 12:03 PM [facility] Anion Gap 11 7 - 15 04/28/2018 [facility] 12:03 PM [facility] BUN (Blood Urea 34 (H) 8 - 24 04/28/2018 [facility] Nitrogen), S mg/dL 12:03 PM [facility] Creatinine 1.31 0.74 - 04/28/2018 [facility] 1.35 mg/dL 12:03 PM [facility] eGFR-Non 53 (L) >=60 04/28/2018 [facility] Black/ mL/min/BSA 12:03 PM [facility] Comment: ----ADDITIONAL INFORMATION---- Estimated GFR calculated using the 2009 CKD_EPI creatinine equation. eGFR-Black/ 62 >=60 mL/min/BSA 2017 12:03 PM [facility] [place] [facility] Comment: ----ADDITIONAL INFORMATION---- Estimated GFR calculated using the 2009 CKD_EPI creatinine equation. Calcium, Total, S 8.7 (L) 8.8 - 10.2 mg/dL 04/28/2018 1 2:03 PM [facility] [place] [facility] Glucose, S 220 (H) 70 - 140 mg/dL 04/28/2018 12:[address] [facility] [place] [facility] Specimen Anatomical Collection Method Collection Time Receive d Time (Source) Location / / Volume Laterality Blood (Blood, 04/28/2018 8:48 AM 04/28/20 18 Venous) CDT 10:59 AM CDT Authorizing Provider Result Deloris Alejandro M.D. LAB BLOOD ADD-ON Performing Organization Address City/[facility]/ZIP Code Phon e Number [facility] [address] [place] [address] LAB (ABNORMAL) Hemoglobin A1c (04/28/2018 8:48 AM CDT) P athologist Signature Hemoglobin A1c, 8.9 (H) 4.2 - 5.6 04/28/2018 [facility] B % 1:25 PM CDT [facility] Comment: Hemoglobin A1c values greater than [...] M.D. LAB BLOOD ADD-ON Performing Organization Address City/[facility]/ZIP Code Phon e Number [facility] [address] [address] LAB AST (Aspartate Aminotransferase) (04/28/2018 8:48 AM CDT) Patholo gist Method Time Signature Aspartate 17 8 - 48 04/28/2018 [facility] Aminotransferase U/L 12:03 PM CDT [employer] (AST), [facility] Specimen Anatomical Collection Method Collection Time Receive d Time (Source) Location / / Volume Laterality Blood (Blood, 04/28/2018 8:48 AM 04/28/20 18 Venous) CDT 10:59 AM CDT Ewa Alejandro M.D. LAB BLOOD ADD-ON Performing Organization Address City/State/ZIP Code Phon e Number [facility] [place] [address] [place] [address] LAB (ABNORMAL) Lipid Panel (04/28/2018 8:48 AM CDT) P athologist Signature Cholesterol, 193 mg/dL 04/28/2018 [facility] Total 12:03 PM CDT [facility] [place] [facility] Comment: ----REFERENCE VALUE---- Desirable: < 200 Borderline high: 200 - 239 High: > or = 240 Triglycerides 402 (H) mg/dL 04/28/2018 2:[address] [facility] [place] [facility] Comment: ----REFERENCE VALUE---- Normal: <150 Borderline high: 150-199 High: 200-499 Very high: > or =500 Cholesterol, HDL, S 33 (L) >=40 mg/dL 04/28/2018 2:48 PM CDT [facility] [place] [facility] Calculated LDL CANCELED mg/dL 04/28/2018 2:48 PM CDT [facility] [place] [facility] Comment: Triglyceride >400 mg/dL. Calculated LDL cholesterol is not valid. Non-HDL cholesterol may be used f or cardiovascular disease risk assessment when triglycerid es are >400 mg/dL. Result canceled by the ancillary Cholesterol, Non-HDL, 160 (H) mg/dL 04/28/2018 2:48 PM CDT [facility] [place] Comment: ----REFERENCE VALUE---- Desirable: <130 Above Desirable: 130-159 Borderline high: 160-189 High: 190-219 Very high: > or =220 Specimen Anatomical Collection Method Collection Time Receive d Time (Source) Location / / Volume Laterality Blood (Blood, 04/28/2018 8:48 AM 04/28/20 18 Venous) CDT 10:59 AM CDT Ewa Alejandro M.D. LAB BLOOD ADD-ON Performing Organization Address City/State/ZIP Code Phon e Number [facility] [address], [place] [address] LAB documented in this encounter Visit Diagnoses Diagnosis Diabetes Mellitus Type 2 (HCC) - Primary documented in this encounter Care Teams Manager Sports Relationship Specialty Start Date End Date Ewa Alejandro M.D. PCP - General 03/13/17 01/09/[address] [place] [address] documented as of this encounter
--- OUTSIDE RECORDS SUMMARY | 2022-05-21 11:35 | XMS_ITS | Encounter Summary ---
:1945 Author Organization [facility] Address [address] [place] [address] Care Team Providers Name Role Phone wEa Alejandro M.D. Primary Care Provider [phone] Reason for Referral MRI/CAT/PET Scan (Routine) - Closed Specialty Diagnoses / Procedures Referred By Contact Refer red To Contact Radiology Diagnoses Dizziness ARMAAN Alejandro SE Region Procedures MR Brain without and with IV Contrast [place] [address] [place] [phone] Referral ID Status Reason Start Date Expiration Date Visits Requ ested Visits Authorized [id number] Closed 09/12/2017 03/11/2018 1 1 TBREAD TRIMMER Reason for Visit MRI/CAT/PET Scan (Routine) - Closed Specialty Diagnoses / Procedures Referred By Contact Refer anna To Contact Radiology Diagnoses Dizziness And Giddiness ARMAAN Alejandro SE Region Procedures MR Brain Angiogram without IV Contrast MR Brain Angiogram without and with IV Contrast RI MRA HEAD WO/W CNTRST HC MRA HEAD WO/W CNTRST RI MRA HEAD WO/W CNTRST RI MRA HEAD WO CNTRST HC MRA HEAD WO CNTRST RI MRA HEAD WO CNTRST [place] [address] [place] [phone] Referral ID Status Reason Start Date Expiration Date Visits Requ ested Visits Authorized [id number] Closed 09/10/2017 03/09/2018 1 1 Encounter Details Date Type Department Care Team Description 09/17/2017 Hospital Encounter Department of [facility] Dizzin ess And Giddiness; Radiology in [place], Ewa, Dizziness [place] [address] [facility] [address] [place], [place] [phone] Social History Tobacco Use Types Packs/Day [...] do you attend sikh or Never 2021 jainism services? Do you [...] daily SYRINGE-NEEDLE,INSULIN,0.5 0 ML (INSULIN SYRINGE MISC) levoFLOXacin Take 1 tablet (500 10 tablet 0 09/17/201708/31 (for_LEVAQUIN) 500 mg mg total) by mouth tablet daily for 10 days. albuterol (for_ACCUNEB) Take 2.5 mg by 0 [...] tablet by 0 0 05/08/2018 mouth daily. traZODone (for_DESYREL) 50 Take 50-100 mg by 0 05/08/2018 mg tablet mouth at bedtime as needed for sleep. documented as of this encounter Progress Notes Yadira Cabral, L.P.N. - 09/17/2017 11:59 PM CST Notified Jonanthan Yannick Trimble L.P.N. - 09/17/2017 4:[address] Roy, Patient is aware of what you are saying. He states he wants you to know the minute they opened his IV for the contrast he began to puke and puke and puke. He states he got it in his eyes, his nose, hisears and all over the machine and it was like a giser. He wants to know if you think that could be why you were seeing fluid in his sinus? He wants to know after you know this information do you want him to still take the ABX? I told patient I would call him back and let him know your thoughts. Thank you. TBREAD TRIMMER documented in this encounter Plan of Treatment Not on filedocumented as of this encounter Procedures Procedure Name Priority Date/Time Associated Comments Diagnosis MR BRAIN WITHOUT RAD - Routine 09/17/2017 10:20 Dizziness Result s for this AND WITH IV (most inpatients AM SWEETBREAD TRIMMER procedure a re in CONTRAST and all the results outpatients) section. MR BRAIN RAD - Routine 09/17/2017 10:20 Dizziness And Results f or this ANGIOGRAM WITHOUT (most inpatients AM SWEETBREAD TRIMMER Giddiness proced ure are in IV CONTRAST and all the results outpatients) section. documented in this encounter Results MR Brain Angiogram without IV Contrast (09/17/2017 10:20 AM SWEETBREAD TRIMMER) Anatomical Region Laterality Modality Head, Brain N/A Magnetic Resonance Specimen (Source) Anatomical Collection Method Collection Time Re ceived Time Location / / Volume Laterality 09/17/2017 11:01 AM SWEETBREAD TRIMMER Impressions 09/17/2017 11:38 AM SWEETBREAD TRIMMER IMPRESSION: 1. 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 2. Normal variant head MRA. 3. Paranasal sinus disease appears acute . Narrative 09/17/2017 11:38 AM SWEETBREAD TRIMMER EXAM: MR BRAIN WITHOUT AND WITH IV CONTRAST, MR BRAIN ANGIOGRAM WITHOUT IV CONTRAST COMPARISON: Brain MRI 11/23/15. FINDINGS: Brain MRI: Negative for acute infarct. T here are chronic lacunar infarcts of the right cerebellum. There is chronic 6 mm infarct of the left-anterior aspect of the hussein (series 12 image 14). There is mild chronic microangiopathy within the cerebral white matter. There is mild gen eralized cerebral and cerebellar volume loss. Negative for intracranial hemorrha ge, herniation, hydrocephalus, or mass. Head MRA: Developmental hypoplastic righ t A1 segment. Negative for major vessel cutoff or stenosis. Negative for aneurys m or vascular malformation. Anterior communicating artery is present. Bilater al posterior communicating arteries are present. Other findings: There is moderate mucosa l thickening throughout the paranasal sinuses. There is layering fluid in the right maxillary sinus that can be seen with acute sinusitis. Bilateral orbital pseudophakia. Procedure Note Franklyn Holm M.D. - 09/17/2017 EXAM: MR BRAIN WITHOUT AND WITH IV CONTR AST, MR BRAIN ANGIOGRAM WITHOUT IV CONTRAST COMPARISON: Brain MRI 11/23/15. FINDINGS: Brain MRI: Negative for acute infarct. T here are chronic lacunar infarcts of the right cerebellum. There is chronic 6 mm infarct of the left-anterior aspect of the hussein (series 12 image 14). There is mild chronic microangiopathy within the cerebral white matter. There is mild gen eralized cerebral and cerebellar volume loss. Negative for intracranial hemorrha ge, herniation, hydrocephalus, or mass. Head MRA: Developmental hypoplastic righ t A1 segment. Negative for major vessel cutoff or stenosis. Negative for aneurys m or vascular malformation. Anterior communicating artery is present. Bilater al posterior communicating arteries are present. Other findings: There is moderate mucosa l thickening throughout the paranasal sinuses. There is layering fluid in the right maxillary sinus that can be seen with acute sinusitis. Bilateral orbital pseudophakia. IMPRESSION: 1. 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 2. Normal variant head MRA. 3. Paranasal sinus disease appears acute . Ewa Alejandro M.D. [facility] [place] MRI PROCEDURES MR Brain without and with IV Contrast (09/17/2017 10:20 AM SWEETBREAD TRIMMER) Anatomical Region Laterality Modality Head, Brain N/A Magnetic Resonance Specimen (Source) Anatomical Collection Method Collection Time Re ceived Time Location / / Volume Laterality 09/17/2017 11:01 AM SWEETBREAD TRIMMER Impressions 09/17/2017 11:38 AM SWEETBREAD TRIMMER IMPRESSION: 1. 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 2. Normal variant head MRA. 3. Paranasal sinus disease appears acute . Narrative 09/17/2017 11:38 AM SWEETBREAD TRIMMER EXAM: MR BRAIN WITHOUT AND WITH IV CONTRAST, MR BRAIN ANGIOGRAM WITHOUT IV CONTRAST COMPARISON: Brain MRI 11/23/15. FINDINGS: Brain MRI: Negative for acute infarct. T here are chronic lacunar infarcts of the right cerebellum. There is chronic 6 mm infarct of the left-anterior aspect of the hussein (series 12 image 14). There is mild chronic microangiopathy within the cerebral white matter. There is mild gen eralized cerebral and cerebellar volume loss. Negative for intracranial hemorrha ge, herniation, hydrocephalus, or mass. Head MRA: Developmental hypoplastic righ t A1 segment. Negative for major vessel cutoff or stenosis. Negative for aneurys m or vascular malformation. Anterior communicating artery is present. Bilater al posterior communicating arteries are present. Other findings: There is moderate mucosa l thickening throughout the paranasal sinuses. There is layering fluid in the right maxillary sinus that can be seen with acute sinusitis. Bilateral orbital pseudophakia. Procedure Note Franklyn Holm M.D. - 09/17/2017 EXAM: MR BRAIN WITHOUT AND WITH IV CONTR AST, MR BRAIN ANGIOGRAM WITHOUT IV CONTRAST COMPARISON: Brain MRI 11/23/15. FINDINGS: Brain MRI: Negative for acute infarct. T here are chronic lacunar infarcts of the right cerebellum. There is chronic 6 mm infarct of the left-anterior aspect of the hussein (series 12 image 14). There is mild chronic microangiopathy within the cerebral white matter. There is mild gen eralized cerebral and cerebellar volume loss. Negative for intracranial hemorrha ge, herniation, hydrocephalus, or mass. Head MRA: Developmental hypoplastic righ t A1 segment. Negative for major vessel cutoff or stenosis. Negative for aneurys m or vascular malformation. Anterior communicating artery is present. Bilater al posterior communicating arteries are present. Other findings: There is moderate mucosa l thickening throughout the paranasal sinuses. There is layering fluid in the right maxillary sinus that can be seen with acute sinusitis. Bilateral orbital pseudophakia. IMPRESSION: 1. 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 2. Normal variant head MRA. 3. Paranasal sinus disease appears acute . Ewa SALINAS MRI PROCEDURES documented in this encounter Visit Diagnoses Diagnosis Dizziness And Giddiness Dizziness documented in this encounter Administered Medications Inactive Administered Medications - up to 3 most recent administrations Medication Order MAR Action Action Date Dose Rate Site gadobutrol injection 1-14 mL Given 09/17/2017 11:00 AM SWEETBREAD TRIMMER 11 mL (for_GADAVIST) 1-14 mL, intravenous, Once in imaging, contrast, Starting on Fri09/17/17 at 1020, For 1 dose, Imaging Protocol Orders, Dose per Radiant Medication Guidelines documented in this encounter Care Teams Strip Mine Supervisor Relationship Specialty Start Date End Date Ewa Alejandro M.D. PCP - General 03/13/17 01/09/20 [address], [place] [address] documented as of this encounter
--- OUTSIDE RECORDS SUMMARY | 2022-05-21 11:35 | XMS_ITS | Encounter Summary ---
:1945 Author Organization [facility] Address [address] [place] [address] Care Team Providers Name Role Phone Ewa Alejandro M.D. Primary Care Provider [phone] Encounter Details Date Type Department Care Team Description 02/16/2018 Hospital Encounter Department of Laboratory Kirill Nicholas Diarrhea Medicine in [place], M.D. [place] [address] [place] [phone] Social History Tobacco Use Types Packs/Day Years [...] do you attend methodist or Never 2021 buddhist services? Do you [...] documented as of this encounter Progress Notes Ewa Alejandro M.D. - 02/16/2018 11:59 PM CDT Please call to see how Jonnathan is feeling today after the IV fluids. Let him know that all of the stool tests were negative for pathogens. I want to see him in follow-up early next week. documented in this encounter Plan of Treatment Not on filedocumented as of this encounter Procedures Procedure Name Priority Date/Time Associated Diagnosis Comme nts C. DIFFICILE TOXIN Routine 02/17/2018 8:00 AM Diarrhea Res ults for this PCR, F CDT procedure are i n the results section. documented in this encounter Results C. difficile Toxin PCR, Feces (02/17/2018 8:00 AM CDT) P athologist Signature C. difficile Negative Negative 02/17/2018 [facility] Toxin PCR, F 10:41 PM CDT [facility] Comment: Notes\S\\S\Jonnathan Costa as [id number] Specimen Anatomical Collection Method Collection Time Receive d Time (Source) Location / / Volume Laterality Stool (Stool) 02/17/2018 8:00 AM 02/18/20 18 9:54 CDT PM CDT Ewa Alejandro M.D. LAB MICROBIOLOGY - GEN ERAL ORDERABLES Performing Organization Address City/State/ZIP Code Phon e Number [facility]- [address] [place] [address] [facility] LAB documented in this encounter Visit Diagnoses Diagnosis Diarrhea documented in this encounter Care Teams Coverstitch Machine Operator Relationship Specialty Start Date End Date Ewa Alejandro M.D. PCP - General 03/13/17 01/09/20 [address], [place] [address] documented as of this encounter
--- OUTSIDE RECORDS SUMMARY | 2022-05-21 11:35 | XMS_ITS | Encounter Summary ---
:1945 Author Organization [facility] Address [address] [place] [address] Care Team Providers Name Role Phone Ewa Alejandro M.D. Primary Care Provider [phone] Reason for Referral Outpatient (Routine) - Closed Specialty Diagnoses / Procedures Referred By Contact Refer red To Contact Diagnoses Cancer Bladder Family History Prasanna Bernal M.D. [facility] Procedures Cystoscopy (specific provider) [address] [place] [phone] Referral ID Status Reason Start Date Expiration Date Visits Requ ested Visits Authorized [id number] Closed 01/15/2018 07/14/2018 1 1 Reason for Visit Outpatient (Routine) - Closed Specialty Diagnoses / Procedures Referred By Contact Refer red To Contact Diagnoses Cancer Bladder Family History [facility].D. [facility] Procedures Cystoscopy (specific provider) [address] [place] [phone] Referral ID Status Reason Start Date Expiration Date Visits Requ ested Visits Authorized [id number] Closed 09/18/2017 03/17/2018 1 1 Encounter Details Date Type Department Care Team Description 01/15/2018 Procedure visit Department of Urology Prasanna Bernal, Cancer Bladder Family in [place] [address] [place] [phone] Social History Tobacco Use Types Packs/Day [...] Sign Reading Time Taken Comments Blood Pressure 140/64 01/15/2018 2:31 PM CDT Pulse 82 01/15/2018 2:31 PM CDT Temperature 36.2 ??C (97.2 ??F) 01/15/2018 2:31 PM CDT Respiratory Rate - - Oxygen Saturation - - Inhaled Oxygen Concentration - - Weight - - Height - - Body Mass Index - - documented in this encounter Procedure Notes Prasanna Bernal M.D. - 01/15/2018 3:00 PM CDT CHIEF COMPLAINT / REASON [...] hybridization (FISH or FUROC). ?Return to clinic ??in 4 months for repeat cystoscopy and bladder cancer surveillance. ? Electronically signed by: Prasanna Bernal M.D. 01/15/18 3:04 PM ? documented in this encounter Plan of Treatment Not on filedocumented as of this encounter Procedures Procedure Name Priority Date/Time Associated Diagnosis Comme nts CYTOLOGY NON-CLINICAL DOCUMENTATION MANAGER Routine 01/15/2018 3:24 PM Cancer Bladder Res ults for this CDT Family History procedure are in the results section. documented in this encounter Results Pathology Non-CLINICAL DOCUMENTATION MANAGER Cytology (01/15/2018 3:24 PM CDT) Component Value Ref Test Analysis Performed At [facility] Range Method Time Signature Gross Description Received 100 01/19/2018 [facility] ml of yellow 2:07 PM [facility] Collection clean catch 01/19/2018 [facility] Procedure 2:[address] [facility] CYTOLOGY Fixative none 01/19/2018 [facility] 2:07 PM [facility] CYTOLOGY Source A. Urine, 01/19/2018 [facility] voided 2:07 PM [facility] CYTOLOGY Clinical History bladder 01/19/2018 [facility] cancer 2:07 PM [facility] CYTOLOGY Report Brady Goodrich MD 01/19/2018 [facility] electronically I verify that I have examined all relevant slides/ma terials 2:07 PM [facility] signed by for the specimen(s) and rendered or confirmed the [facility] CYTOLOGY 01/19/2018 [facility] 2:[address] [facility] CYTOLOGY Interpretation A. Urine, voided (cytospin): Negative for High-Grade 01/19/2018 [facility] Urothelial Carcinoma. 2:[address] [facility] CYTOLOGY Comment: Interpreted by: Brady Goodrich MD, Signed on 01/19/2018 at 14:07 Specimen Anatomical Collection Method Collection Time Receive d Time (Source) Location / / Volume Laterality Varies 01/15/2018 3:24 PM 8 CDT 11:11 AM CDT Narrative This result has an attachment that is no t available. Prasanna Bernal M.D. LAB SURG PATH ORDERABLES Performing Organization Address City/State/ZIP Code Phon e Number [facility] [address] [place] [address] CYTOLOGY documented in this encounter Visit Diagnoses Diagnosis Cancer Bladder Family History documented in this encounter Care Teams Human Relations Manager Relationship Specialty Start Date End Date Ewa Alejandro M.D. PCP - General 03/13/17 01/09/[address] [phone] documented as of this encounter
--- OUTSIDE RECORDS SUMMARY | 2022-05-21 11:35 | XMS_ITS | Encounter Summary ---
:1945 Author Organization [facility] Address [address] [place] [address] Care Team Providers Name Role Phone Ewa Alejandro M.D. Primary Care Provider [phone] Encounter Details Date Type Department Care Team Description 02/18/2018 Orders Only Department of Family Sunny Martinez De hydration (Primary Medicine, [place] [facility] Dx) Clinic, in [address] [address] [place], [place] [phone] (Work) [phone] Social History Tobacco Use Types Packs/Day Years [...] or slept in a longterm (including now)? Sex Assigned at Date Recorded Male 05/21/2018 2:34 PM CDT documented as of this encounter Plan of Treatment Not on filedocumented as of this encounter Results (ABNORMAL) Basic Metabolic Panel (02/19/2018 9:34 AM CDT) Analysis Performed At Patho logist Time Signature Potassium, S 5.0 3.6 - 5.2 02/19/2018 [facility] mmol/L 3:28 PM [facility] Sodium, S 143 135 - 145 02/19/2018 [facility] mmol/L 3:28 PM [facility] Chloride, S 105 98 - 107 02/19/2018 [facility] mmol/L 3:28 PM [facility] Bicarbonate, S 22 22 - 29 02/19/2018 [facility] mmol/L 1:55 PM [facility] Anion Gap 16 (H) 7 - 15 02/19/2018 [facility] 3:28 PM [facility] BUN (Blood Urea 43 (H) 8 - 24 02/19/2018 [facility] Nitrogen), S mg/dL 1:55 PM [facility] Creatinine 1.49 (H) 0.74 - 02/19/2018 [facility] 1.35 mg/dL 1:55 PM [facility] LAB eGFR-Non 46 (L) >=60 02/19/2018 [facility] Black/ mL/min/BSA 1:55 PM [facility] LAB Comment: ----ADDITIONAL INFORMATION---- Estimated GFR calculated using the 2009 CKD_EPI creatinine equation. eGFR-Black/ 53 (L) >=60 mL/min/BSA 02/19/2018 1:55 [facility] Maldivian PM CDT [facility] [place] [facility] Comment: ----ADDITIONAL INFORMATION---- Estimated GFR calculated using the 2009 CKD_EPI creatinine equation. Calcium, Total, S 9.3 8.8 - 10.2 mg/dL 02/19/2018 1:[address] [facility] [place] [facility] Glucose, S 292 (H) 70 - 140 mg/dL 02/19/2018 1:[address] [facility] [place] [facility] Specimen Anatomical Collection Method Collection Time Receive d Time (Source) Location / / Volume Laterality Blood (Blood, 02/19/2018 9:34 AM 02/20/20 18 Venous) CDT 11:18 AM CDT Sunny Martinez P.A.-C. LAB BLOOD ADD-ON Performing Organization Address City/State/ZIP Code Phon e Number [facility] [address] [place] [address] [place] [facility]- [address] [facility] documented in this encounter Visit Diagnoses Diagnosis Dehydration - Primary documented in this encounter Care Teams Metal Bumper Relationship Specialty Start Date End Date Ewa Alejandro M.D. PCP - General 03/13/17 01/09/[address] [phone] documented as of this encounter
--- OUTSIDE RECORDS SUMMARY | 2022-05-21 11:35 | XMS_ITS | Encounter Summary ---
:1945 Author Organization [facility] Address [address] [place] [address] Care Team Providers Name Role Phone Ewa Alejandro M.D. Primary Care Provider Encounter Details Date Type Department Care Team Description 01/22/2018 Hospital Encounter Department of [facility] es Mellitus Laboratory Medicine Ewa brunson, Type 2 (HCC) in [place] [address] [place] [phone] Social History Tobacco Use Types Packs/Day [...] do you attend voodoo or Never 2021 oriental orthodox services? Do [...] Diagnosis Comme nts HEMOGLOBIN A1C, B Routine 01/22/2018 7:42 AM Diabetes Mellitus Results for this CDT Type 2 (HCC) procedure are i n the results section. documented in this encounter Results (ABNORMAL) Hemoglobin A1c (01/22/2018 7:42 AM CDT) P athologist Signature Hemoglobin A1c, 9.1 (H) 4.2 - 5.6 01/22/2018 [facility] B % 11:25 AM CDT [facility] Comment: Hemoglobin A1c values greater than or eq ual to 6.5 percent are diagnostic for diabetes mellitus. ?? Diagnosis should be confirmed by repeat testing. ??In diabet ic patients, HbA1c goals should be discussed with healthcar e provider. Specimen Anatomical Collection Method Collection Time Receive d Time (Source) Location / / Volume Laterality Blood (Blood, 01/22/2018 7:42 AM 01/23/20 18 Venous) CDT 10:58 AM CDT Ewa Alejandro M.D. LAB BLOOD ADD-ON Performing Organization Address City/State/ZIP Code Phon e Number [facility] [address] [place] [address] LAB documented in this encounter Visit Diagnoses Diagnosis Diabetes Mellitus Type 2 (HCC) documented in this encounter Care Teams Switch Adjuster Relationship Specialty Start Date End Date Ewa Alejandro M.D. PCP - General 03/13/17 01/09/[address] [place] [phone] documented as of this encounter
--- OUTSIDE RECORDS SUMMARY | 2022-05-21 11:35 | XMS_ITS | Encounter Summary ---
:1945 Author Organization [facility] Address [address] [place] [address] Care Team Providers Name Role Phone Ewa Alejandro M.D. Primary Care Provider [phone] Reason for Referral Outpatient (Routine) - Closed Specialty Diagnoses / Procedures Referred By Contact Refer red To Contact Neurology Diagnoses Dizziness And Giddiness ARMAAN Alejandro [facility] Felicita Mcneil M.D. [address], [place] [address] Referral ID Status Reason Start Date Expiration Date Visits V isits Requested Authorized [id number] Closed Specialty 10/20/2017 04/18/2018 1 1 Services Required S CLIPPINGS CUTTER AND PASTER Reason for Visit Reason Comments Dizziness noted to have been started s cony cardiac medication changes Encounter Details Date Type Department Care Team Description 10/20/2017 Office Visit Department of Family Philip Echeverria ziness And Giddiness Medicine, Ewa Barclay, (Primary Dx) Clinic, in [place] [address] [place] [phone] Social History Tobacco Use Types Packs/Day Years [...] do you attend caodaism or Never 2021 samaritan services? Do you [...] Sign Reading Time Taken Comments Blood Pressure 128/68 10/20/2017 10:45 AM PRESS CLIPPINGS CUTTER AND PASTER Pulse 76 10/20/2017 10:36 AM PRESS CLIPPINGS CUTTER AND PASTER Temperature 36.6 ??C (97.9 ??F) 10/20/2017 10:36 AM PRESS CLIPPINGS CUTTER AND PASTER Respiratory Rate 16 10/20/2017 10:36 AM PRESS CLIPPINGS CUTTER AND PASTER Oxygen Saturation 96% 10/20/2017 10:36 AM PRESS CLIPPINGS CUTTER AND PASTER room a ir Inhaled Oxygen Concentration - - Weight 110 kg (242 lb 13.4 oz) 10/20/2017 10:36 AM PRESS CLIPPINGS CUTTER AND PASTER Height 188 cm (6' 2.02) 10/20/2017 10:36 AM PRESS CLIPPINGS CUTTER AND PASTER Body Mass Index 31.16 10/20/2017 10:36 AM PRESS CLIPPINGS CUTTER AND PASTER documented in this encounter Progress Notes Ewa Alejandro M.D. - 10/20/2017 10:45 AM CST CHIEF COMPLAINT/ REASON FOR VISIT Ongoing dizziness. HISTORY OF PRESENT ILLNESS Jonnathan Costa is a 72 y.o. male who presents to the clinic today for ongoing dizziness. [facility]. He was initially on amlodipine 5 mg daily. The clinical pharmacist wanted him to increase to 10 mg and when he did this, he became dizzy and nauseous and he struggled walking out of bed. Then they changed it to5 mg twice daily. He is still dealing with the nausea, but not as bad as on the 10 mg at once. He states that he was at a republican the other day that he struggled getting up the stairs and felt lightheaded. He has had this since he started the 10 mg of amlodipine, which was about 09/19. He otherwise has not had any focal neurologic symptoms. He denies any chest tightness. He only had one episode where he was sweating when he was nauseous, but otherwise he has not been sweaty. During that episode, he had a touch of a stomach flu because he vomited profusely that night as well. Jonnathan then talked with his daughter, who is a physician, and she recommended that he start walking in water for resistance. She would also be concerned about his carotid artery. The patient denies any additional questions or [...] Units under the skin at bedtime. ??? losartan (for_COZAAR) 100 mg tablet Take [...] Asthma NOS Pulmonary symptomatology, diagnosis at the [facility] unclear, but probably some degree of COPD. [...] 08/28/[address] Prasanna Bernal at the [facility]. ??? TONSILLECTOMY N/A PREVENTIVE SERVICES Social History Substance Use Topics ??? Smoking status: Former Smoker Quit date: 1979 ??? Smokeless tobacco: Never Used ??? Alcohol use No VITAL SIGNS BP 128/68 (BP Location: Left arm, Patient Position: Sitting, Cuff Size: Large) Pulse 76 Temp 36.6 ??C (Temporal) Resp 16 Ht 188 cm Wt 110.2 kg SpO2 96% Comment: room air BMI 31.16 kg/m?? PHYSICAL EXAMINATION General: Patient is alert [...] or suspicious lesions noted on exposed skin. Neuro: DTR's are normal and brisk. Face is normal and symmetric. Tongue protrudes in the midline. 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 We will needto prevent any further advancement of the disease by having excellent control of his blood pressure,cholesterol, and blood sugars. Will also need to promote balance through mobility devices and consider physical therapy. He will also schedule an appointment with Dr. Lala in neurology. Follow up The patient will contact the clinic with any new or worsening symptoms. ADMINISTRATIVE BILLING 20 minutes of this 25 minute visit was spent in face to face counseling and coordination of care. This document serves as a record of services personally performed by Ewa Roy MD. It was created on their behalf by Karen Givens, a trained biomedical electronics technician. The creation of this record is based on the scribe's personal observations and the provider's statements to them. This document has been ch ecked and approved by the attending provider. S CLIPPINGS CUTTER AND PASTER documented in this encounter Plan of Treatment Scheduled Referrals Name Type Priority Associated Diagnoses [facility] - General Outpatient Referral Routine Dizziness And Expected: consult (clinic) Giddiness 10/20/2017 (Approximate), Expires: 10/20/2020 documented as of this encounter Visit Diagnoses Diagnosis Dizziness And Giddiness - Primary documented in this encounter Care Teams Front Desk Associate Relationship Specialty Start Date End Date Ewa Alejandro M.D. PCP - General 03/13/17 01/09/20 [address] [place] [phone] documented as of this encounter
--- OUTSIDE RECORDS SUMMARY | 2022-05-21 11:35 | XMS_ITS | Encounter Summary ---
:1945 Author Organization [facility] Address [address] [place] [address] Care Team Providers Name Role Phone Ewa Alejandro M.D. Primary Care Provider [phone] Encounter Details Date Type Department Care Team Description 02/18/2018 Clinical Communication Department of Family Kirill [facility] in [place] [address] [facility] [phone] Social History Tobacco Use Types Packs/Day Years [...] do you attend cheondoism or Never 2021 baptist services? Do you [...] on filedocumented in this encounter Care Teams Assessment Consultant Relationship Specialty Start Date End Date Ewa Alejandro M.D. PCP - General 03/13/17 01/09/20 [address] [place] [phone] documented as of this encounter
--- OUTSIDE RECORDS SUMMARY | 2022-05-21 11:35 | XMS_ITS | Encounter Summary ---
:1945 Author Organization [facility] Address [address] [place] [address] Care Team Providers Name Role Phone Ewa Alejandro M.D. Primary Care Provider [phone] Reason for Referral Outpatient (Routine) - Closed Specialty Diagnoses / Procedures Referred By Contact Refer red To Contact Diagnoses Cancer Bladder Family History Prasanna Bernal M.D. [facility] Procedures Cystoscopy (specific provider) [address] [place] [address] Referral ID Status Reason Start Date Expiration Date Visits Requ ested Visits Authorized [id number] Closed 09/18/2017 03/17/2018 1 1 MACHINE REPAIRER Reason for Visit Reason Comments Cystoscopy Encounter Details Date Type Department Care Team Description 09/18/2017 Procedure visit Department of Urology Prasanna Bernal, Malignant Neoplasm Of Bladder Lateral Wall (HCC) (Primary Dx); in [place] Cancer Bladder Family History [place] [address] [place], [place] [phone] Social History Tobacco Use Types Packs/Day Years [...] do you attend synagogue or Never 2021 restoration services? Do you [...] Sign Reading Time Taken Comments Blood Pressure 124/70 09/18/2017 10:13 AM FAX MACHINE REPAIRER Pulse 84 09/18/2017 10:13 AM FAX MACHINE REPAIRER Temperature 36.5 ??C (97.7 ??F) 09/18/2017 10:13 AM FAX MACHINE REPAIRER Respiratory Rate - - Oxygen Saturation - - Inhaled Oxygen Concentration - - Weight - - Height - - Body Mass Index - - documented in this encounter Procedure Prasanna Moreira M.D. - 09/18/2017 10:30 AM CST CHIEF COMPLAINT / REASON FOR VISIT ?? CYSTOSCOPY REPORT ?? INDICATION Bladder cancer. This is a 71-year-old male who had a transurethral resection of a bladder tumor located on the right lateral wall on May 22, 2016. 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 On August 28, 2016 he underwent his initial postoperative evaluation and simultaneous GreenLight photoselective vaporization of the prostate. At this time he is doing well and has no complaints. ?? INSTRUMENT Flexible cystoscope. ?? ANESTHESIA 2% aqueous lidocaine jelly introduced into the urethra. ?? PROCEDURE During this procedure the universal protocol was utilized. The patient's identity was confirmed by no less than two patient identifiers, correct procedure was verified, correct site was verified and marked as applicable and a final pause was completed. The patient was placed in a supine position. The genitalia were prepped and draped sterilely. The urethra was anesthetized with 2% aqueous lidocaine jelly. The cystoscope was advanced into the urethra. ?? FINDINGS Meatus: Normal. Urethra: No strictures noted. Bulbous urethra and membranous urethra are normal. Prostate: Length: 4 cm. Lateral lobes: Well resected with minimal apical tissue present. Middle lobe: Absent. Bladder neck: Unremarkable. Bladder: Residual urine: Minimal. Ureteral orifices: Singular bilaterally, normal position on the trigone, slit- like in configuration and with clear efflux of urine noted bilaterally. Trabeculation: Mild. Foreign bodies: No evidence of stones, tumors, exophytic lesions or other foreign bodies. ?? COMMENTS The procedure was well tolerated by the patient. He was discharged from the office in satisfactory condition. Post-cystoscopy instructions were reviewed with him. ?? IMPRESSION / REPORT / PLAN 1. History of bladder cancer, no cystoscopic evidence of recurrent disease 2. Benign prostatic hypertrophy, improved following GreenLight photoselective vaporization of the prostate. ?? PLAN: An aliquot of urine was obtained and will be sent for cytology and Urovysion(tm) fluorescence in situ hybridization (FISH or FUROC). Return to clinic in 4 months for repeat cystoscopy and bladder cancer surveillance. Electronically signed by: Prasanna Bernal M.D. 09/18/17 11:19 AM MACHINE REPAIRER documented in this encounter Plan of Treatment Scheduled Orders Name Type Priority Associated Diagnoses Order S chedule Cystoscopy (specific Procedure Routine Cancer Bladder Famil y Expected: provider) History 01/15/2018 (Approximate), Expires: 2019 documented as of this encounter Procedures Procedure Name Priority Date/Time Associated Diagnosis Comme nts CYTOLOGY NON-HEALTHCARE ADMINISTRATOR Routine 09/18/2017 11:01 AM Cancer Bladder Re sults for this FAX MACHINE REPAIRER Family History procedure are in the results section. UROVYSION (R) FOR Routine 09/18/2017 11:01 AM Cancer Bladder R esults for this BLADDER CANCER FAX MACHINE REPAIRER Family History procedure a re in the results section. documented in this encounter Results UroVysion for Detection of Bladder Cancer, Urine (09/18/2017 11:01 AM [facility]) Component Value Ref Test Analysis Performed At [facility] Range Method Time Signature Result Summary Negative 09/30/2017 [facility] 8:56 AM LABORATORIES - [facility] Karyotype No evidence of 09/30/2017 [facility] urothelial 8:56 AM LABORATORIES - carcinoma. [facility] Reason for Evaluate for 09/30/2017 [facility] referral urothelial 8:56 AM LABORATORIES - carcinoma. [facility] Specimen Varies 09/30/2017 [facility] 8:56 AM LABORATORIES - [facility] Source Urine, NOS 09/30/2017 [facility] 8:56 AM LABORATORIES - [facility] Released By Miguelito Machuca 09/30/2017 [facility] Pato Crowell, 8:56 AM LABORATORIES - Ph.D. [facility] Interpretation This test result does not rule out the possibility t hat the 09/30/2017 [facility] patient may have a low-grade (i.e. grade 1 or 2) 8:56 AM LABORATORIES - non-invasive papillary urothelial carcinoma. Some patients [facility] with low grade non-invasive papillary urothelial carcinoma CAMPUS do not have abnormalities with this FISH test. Comment: Interpreted by: Miguelito Crowell M.D., Ph.D., Signed on 09/30/2017 at 08:56 ----ADDITIONAL INFORMATION---- This test has been modified from the [place] ufacturer's instructions. Its performance characteristics were determi darnell by [facility] in a manner consistent with CLIA requirements. This test has not been cleared or approved by the U.S. Food and Drug Administration . Fluorescence in situ hybridization (FISH ) with centromere probes for chromosomes 3 (D3Z1), 7(D7Z1), 17(D17Z1) , and a locus specific probe for 9p21. Specimen Anatomical Collection Method Collection Time Receive d Time (Source) Location / / Volume Laterality Varies (Urine, 09/18/2017 11:01 7 8:35 Voided) AM FAX MACHINE REPAIRER AM FAX MACHINE REPAIRER Narrative This result has an attachment that is no t available. Prasanna Bernal M.D. LAB GENETIC TESTING Performing Organization Address City/State/ZIP Code Phon e Number [facility] LABORATORIES - [address] [place], [place] [address] [facility] Pathology Non-HEALTHCARE ADMINISTRATOR Cytology (09/18/2017 11:01 AM FAX MACHINE REPAIRER) Component Value Ref Test Analysis Performed At [facility] gist Range Method Time Signature Gross Description Received 20 09/19/2017 [facility] IC ml of yellow 3:31 PM [facility] alcohol fixed SYSTEM- [facility] . [place] [facility] Collection CYTNG 09/19/2017 [facility] Procedure 3:31 PM [facility] CYTOLOGY Fixative 50% reagent 09/19/2017 [facility] alcohol 3:31 PM [facility] CYTOLOGY Source A. Urine, 09/19/2017 [facility] Midstream, 3:31 PM [facility] voided [facility] CYTOLOGY Clinical History Cancer 09/19/2017 [facility] Bladder 3:31 PM [facility] CYTOLOGY Report Jose Khan MD 09/19/2017 [facility] electronically I verify that I have examined all relevant slides/ma terials 3:31 PM [facility] signed by for the specimen(s) and rendered or confirmed the [facility] CYTOLOGY 09/19/2017 [facility] 3:31 PM [facility] CYTOLOGY Interpretation A. Urine, Midstream, voided (cytospin): Negative for 09/19/2017 [facility] High-Grade Urothelial Carcinoma. 3:31 PM [facility] CYTOLOGY Comment: Interpreted by: Jose lord MD, Signed on 09/19/2017 at 15:31 Specimen Anatomical Collection Method Collection Time Receive d Time (Source) Location / / Volume Laterality Varies 09/18/2017 11:01 09/19/2017 7:12 AM FAX MACHINE REPAIRER AM FAX MACHINE REPAIRER Narrative This result has an attachment that is no t available. Prasanna Bernal M.D. LAB SURG PATH ORDERABLES Performing Organization Address City/[facility]/ZIP Code Phon e Number [facility]- [address] [place] [address] [place] [facility]- [address] [place] [address], U [facility] CYTOLOGY documented in this encounter Visit Diagnoses Diagnosis 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 (HCC) - Primary Cancer Bladder Family History documented in this encounter Care Teams Ranch Manager Relationship Specialty Start Date End Date Ewa Alejandro M.D. PCP - General 03/13/17 01/09/[address] [place] [phone] documented as of this encounter
--- OUTSIDE RECORDS SUMMARY | 2022-05-21 11:35 | XMS_ITS | Encounter Summary ---
:1945 Author Organization [facility] Address [address] [place] [address] Care Team Providers Name Role Phone Ewa Alejandro M.D. Primary Care Provider [phone] Encounter Details Date Type Department Care Team Description 02/19/2018 Hospital Encounter Department of Laboratory Sunny Martinez, Dehydration Medicine in [place] [address] [facility] [address] [place], [place] [phone] (Wo rk) Social History Tobacco Use Types [...] do you attend orthodoxy or Never 2021 uatsdin services? Do you [...] Associated Diagnosis Comme nts BASIC METABOLIC Routine 02/19/2018 9:34 AM Dehydration Result s for this PANEL, S/P CDT procedure are i n the results section. documented in this encounter Results (ABNORMAL) Basic Metabolic Panel (02/19/2018 9:34 AM CDT) Analysis Performed At [facility] Time Signature Potassium, S 5.0 3.6 - 5.2 02/19/2018 [facility] mmol/L 3:28 PM [facility] Sodium, S 143 135 - 145 02/19/2018 [facility] mmol/L 3:28 PM [facility] Chloride, S 105 98 - 107 02/19/2018 [facility] mmol/L 3:28 PM [facility] Bicarbonate, S 22 22 - 29 02/19/2018 [facility] mmol/L 1:55 PM [facility] LAB Anion Gap 16 (H) 7 - 15 02/19/2018 [facility] 3:28 PM [facility] BUN (Blood Urea 43 (H) 8 - 24 02/19/2018 [facility] Nitrogen), S mg/dL 1:55 PM [facility] Creatinine 1.49 (H) 0.74 - 02/19/2018 [facility] 1.35 mg/dL 1:55 [facility] eGFR-Non 46 (L) >=60 02/19/2018 [facility] Black/ mL/min/BSA 1:55 [facility] Comment: ----ADDITIONAL INFORMATION---- Estimated GFR calculated using the 2009 CKD_EPI creatinine equation. eGFR-Black/ 53 (L) >=60 mL/min/BSA 02/19/2018 1:55 [facility] [employer] LAB Comment: ----ADDITIONAL INFORMATION---- Estimated GFR calculated using the 2009 CKD_EPI creatinine equation. Calcium, Total, S 9.3 8.8 - 10.2 mg/dL 02/19/2018 1:55 PM [facility] [place] [facility] Glucose, S 292 (H) 70 - 140 mg/dL 02/19/2018 1:55 PM [facility] [place] [facility] Specimen Anatomical Collection Method Collection Time Receive d Time (Source) Location / / Volume Laterality Blood (Blood, 02/19/2018 9:34 AM 02/20/20 18 Venous) CDT 11:18 AM CDT Sunny Martinez P.A.-C. LAB BLOOD ADD-ON Performing Organization Address City/State/ZIP Code Phon e Number [facility]- [address], [place] [address] [place] [facility]- [address] LAB documented in this encounter Visit Diagnoses Diagnosis Dehydration documented in this encounter Care Teams Billing And Quality Technician Relationship Specialty Start Date End Date Ewa Alejandro M.D. PCP - General 03/13/17 01/09/202199 [address] [phone] documented as of this encounter
--- OUTSIDE RECORDS SUMMARY | 2022-05-21 11:35 | XMS_ITS | Encounter Summary ---
:1945 Author Organization [facility] Address [address] [place] [address] Care Team Providers Name Role Phone Ewa Alejandro M.D. Primary Care Provider [phone] Encounter Details Date Type Department Care Team Description 02/17/2018 Hospital Encounter Department of [facility] Renal Laboratory Medicine Ewa brunson in [place], M.D. [place] [address] [place] [phone] Social History Tobacco Use Types Packs/Day [...] do you attend druze or Never 2021 synagogue services? Do you [...] Associated Diagnosis Comme nts BASIC METABOLIC Routine 02/17/2018 10:41 Insufficiency Renal R esults for this PANEL, S/P AM CDT procedure are i n the results section. documented in this encounter Results (ABNORMAL) Basic Metabolic Panel (02/17/2018 10:41 AM CDT) [facility] Time Signature Potassium, S 5.0 3.6 - 5.2 02/17/2018 [facility] mmol/L 1:45 PM [facility] [place] [facility] Sodium, S 134 (L) 135 - 145 02/17/2018 [facility] mmol/L 1:45 PM [facility] [place] [facility] Chloride, S 98 98 - 107 02/17/2018 [facility] mmol/L 1:45 PM [facility] [place] [facility] Bicarbonate, S 21 (L) 22 - 29 02/17/2018 [facility] mmol/L 1:45 PM [facility] Anion Gap 15 7 - 15 02/17/2018 [facility] 1:45 PM [facility] [place] [facility] BUN (Blood Urea 69 (H) 8 - 24 02/17/2018 [facility] Nitrogen), S mg/dL 1:45 PM [facility] [place] [facility] Creatinine 2.22 (H) 0.74 - 02/17/2018 [facility] 1.35 mg/dL 1:45 PM [facility] [place] [facility] eGFR-Non 28 (L) >=60 02/17/2018 [facility] Black/ mL/min/BSA 1:45 PM [facility] [place] [facility] Comment: ----ADDITIONAL INFORMATION---- Estimated GFR calculated using the 2009 CKD_EPI creatinine equation. eGFR-Black/ 33 (L) >=60 mL/min/BSA 02/17/2018 1:45 [facility] [place] [facility] Comment: ----ADDITIONAL INFORMATION---- Estimated GFR calculated using the 2009 CKD_EPI creatinine equation. Calcium, Total, S 9.3 8.8 - 10.2 mg/dL 02/17/2018 1:45 PM [facility] [employer] [facility] [facility] Glucose, S 336 (H) 70 - 140 mg/dL 02/17/2018 1:45 PM [facility] [employer] [facility] Specimen Anatomical Collection Method Collection Time Receive d Time (Source) Location / / Volume Laterality Blood (Blood, 02/17/2018 10:41 02/17/2018 Venous) AM CDT 12:54 PM CDT Ewa Alejandro M.D. LAB BLOOD ADD-ON Performing Organization Address City/State/ZIP Code Phon e Number [facility] [address] [place] [address] LAB documented in this encounter Visit Diagnoses Diagnosis Insufficiency Renal documented in this encounter Care Teams Carpenters Supervisor Relationship Specialty Start Date End Date Ewa Alejandro M.D. PCP - General 03/13/17 01/09/202199 [place] [phone] documented as of this encounter
--- OUTSIDE RECORDS SUMMARY | 2022-05-21 11:35 | XMS_ITS | Encounter Summary ---
:1945 Author Organization [facility] Address [address] [place] [address] Care Team Providers Name Role Phone Ewa Alejandro M.D. Primary Care Provider [phone] Reason for Visit Reason Comments Follow-up Last visit 05/02/16 Continues to have balance problems. Had MRI brain 09/17/18. Outpatient (Routine) - Closed Specialty Diagnoses / Procedures Referred By Contact Refer red To Contact Neurology Diagnoses Dizziness And Giddiness ARMAAN Alejandro [facility] Pato Mcneil [address] [place] [phone] Referral ID Status Reason Start Date Expiration Date Visits V isits Requested Authorized [id number] Closed Specialty 10/20/2017 04/18/2018 1 1 Services Required Encounter Details Date Type Department Care Team Description 10/30/2017 Office Visit Department of Ewa Evans M.D. [address] [place] [address] Dizziness And Giddiness Neurology in Mari Lala M.D., M.P.H. [address] [place] [phone] [phone] Social History Tobacco Use Types Packs/Day Years [...] do you attend anabaptism or Never 2021 amish services? Do you [...] Sign Reading Time Taken Comments Blood Pressure 128/72 10/30/2017 1:02 PM ADVANCED MANUFACTURING ENGINEER Pulse 79 10/30/2017 12:55 PM ADVANCED MANUFACTURING ENGINEER Temperature - - Respiratory Rate - - Oxygen Saturation - - Inhaled Oxygen Concentration - - Weight 111 kg (244 lb 0.8 oz) 10/30/2017 12:55 PM ADVANCED MANUFACTURING ENGINEER Height - - Body Mass Index 31.32 10/20/2017 10:36 AM ADVANCED MANUFACTURING ENGINEER documented in this encounter Consult Notes Tae Lala M.D., M.P.H. - 10/30/2017 1:00 PM CST SUBJECTIVE CHIEF COMPLAINT / REASON FOR VISIT Jonnathan Costa is a 72 y.o. male who presents for evaluation of Follow-up (Last visit 05/02/16 Continues to have balance problems. Had MRI brain 09/17/18.). HISTORY OF PRESENT ILLNESS HPI The patient reports to me that he has had difficulty with managing his blood pressure and as result his blood pressure has been addressed at the [facility] where a clinical pharmacist started amlodipine 5 mg per day because his blood pressure remained refractory his dose was increased to 10 mg of amlodipine per day. He noted that he had a new sense of disequilibrium and a presyncopal sensation. He complained of these symptoms to Dr. Roy who ordered imaging studies of his brain including his vascular supply. The patient noted that his daughter who is also a physician was concerned about his anterior circulatory system. 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 There was noted generalized cerebral and cerebellar volume loss. 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 The posterior communicating arteries were patent The patient notes that in September when they are having an annual related [employer] party that when he got home he woke up very sick. When he got out of bed he said he was vertiginous nauseated and vomiting. He said he vomited so violently that his throat was sore the next day. He said he thought to himself ???this is what feels like??? He noted that prior to this evening when he was extremely ill and subsequently that he felt a disequilibrium when he would stand up and have to wait a little bit to move. On his own accord he cut the amlodipine from 10 mg back to 5. He notes that he is gradually started to feel better so that at today's visit he does not have any sense of disequilibrium any longer. He notes incidentally that about 5 or 6 days after he had the symptoms of nausea and vomiting and dizziness that his son had similar symptoms. At today's visit he has me rather directly whether he should stop the rest of the amlodipine. I toldhim that I was not going to make such a recommendation but Dr. Roy could determine what adjustments might need to be made. I brought up on the Internet pictures of the posterior circulation and an academic publication on symptoms associated with posterior circulation ischemia and gave that to him as I thought it was most likely that the symptoms that he had prior to and after the 1 bad night were probably due to inadequate posterior circulation but that the really bad night might have been coincident viral illness since his son had similar symptoms less than a week later. I printed out both so the patient could show them to his daughter who is a physician. He said he needs something to take back. The following portions of the patient's history were reviewed and updated as appropriate: allergies. REVIEW OF SYSTEMS: Gastrointestinal: Positive for nausea. Hematologic: Positive for bruises or bleeds easily. Neurological: Positive for light-headedness and loss of balance or tendency to fall easily. The following systems were negative: Constitutional, Skin, Eyes, ENT, CV, Respiratory, , Musculoskeletal, Psych Gastrointestinal: Positive for nausea. Hematologic: Positive for bruises or bleeds easily. Neurological: Positive for light-headedness and loss of balance or tendency to fall easily. The following systems were negative: Constitutional, Skin, Eyes, ENT, CV, Respiratory, , Musculoskeletal, Psych OBJECTIVE PHYSICAL EXAM For details of the neurologic examination, please see the neurologic examination form. ASSESSMENT / PLAN #1 Dizziness And Giddiness I believe it is likely that this patient may need to run a slightly higher blood pressure to maintain his posterior circulation. His lowering of his blood pressure medicines on his own has resulted in improved and resolution of the symptoms. It is certainly possible that for him to fit right in the guidelines may present problems for his posterior circulation and I believe diagnosis 2. Listed below makes it likely that he has less than ideal autonomic response to orthostatic challenges. #2 Diabetes Mellitus Type 2 (HCC) This may in fact playing a factor and his posterior circulatory problems orthostatic disequilibrium. 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 Plan: I told the patient that I would discuss her visit with Dr. Roy so that the 2 of them could decide going forward how best to manage his blood pressure. Total time together was 65 minutes with 40 in counseling. NCED MANUFACTURING ENGINEER documented in this encounter Plan of Treatment Not on filedocumented as of this encounter Visit Diagnoses Diagnosis Dizziness And Giddiness documented in this encounter Care Teams Office Machine Embossograph Operator Relationship Specialty Start Date End Date Ewa Alejandro M.D. PCP - General 03/13/17 01/09/[address] [phone] documented as of this encounter
--- OUTSIDE RECORDS SUMMARY | 2022-05-21 11:35 | XMS_ITS | Encounter Summary ---
:1945 Author Organization [facility] Address [address] [place] [address] Care Team Providers Name Role Phone Ewa Alejandro M.D. Primary Care Provider [phone] Encounter Details Date Type Department Care Team Description 02/17/2018 Clinical Communication Department of Anjana Boateng, Medicine, [place] [facility], [facility], [address] [place], [place] [address] [facility] [address] [place], [place] [phone] (Work) [phone] Social History Tobacco Use Types Packs/Day Years [...] do you attend scientologist or Never 2021 sabianism services? Do you [...] encounter Miscellaneous Notes Telephone Encounter - Jacquie Hamiltno, L.P.N. - 02/17/2018 8:42 AM CDT Call placed to patient for update on symptoms with patient stating he has no change in symptoms and will submitt stool sample today 02/17/2018 along with completion of labs ordered on 02/16/2018 documented in this encounter Plan of Treatment Not on filedocumented as of this encounter Visit Diagnoses Not on filedocumented in this encounter Care Teams Senior Vice President Relationship Specialty Start Date End Date Ewa Alejandro M.D. PCP - General 03/13/17 01/09/[address] [phone] documented as of this encounter
--- OUTSIDE RECORDS SUMMARY | 2022-05-21 11:35 | XMS_ITS | Encounter Summary ---
:1945 Author Organization [facility] Address [address] [place] [address] Care Team Providers Name Role Phone Ewa Alejandro M.D. Primary Care Provider Encounter Details Date Type Department Care Team Description 02/17/2018 Clinical Communication Department of Family Kir[facility], Ewa Barclay, Clinic, in [place] [address] [place] [phone] Social History Tobacco Use Types Packs/Day Years [...] do you attend hoahaoism or Never 2021 gnosticist services? Do you [...] Telephone Encounter - Jacquie Hamilton L.P.NMauro - 02/18/2018 1:41 PM CDT Advisement given to patient who is scheduled for repeat labs on 02/19/2018 at 0920 am Telephone Encounter - Sunny Martinez P.A.-C. - 02/18/2018 1:10 PM CDT I reviewed his labs. Since he just got his fluids, we could recheck a blood test for his kidney function. I will put in that order. Telephone Encounter - Jacquie Hamilton L.P.NMauro - 02/18/2018 12:47 PM CDT Spoke to patient who stated he still continues with the diarrhea which he has had x 2 weeks. Patientalso wondering if he needs to repeat labs to see if after receiving iv fluids if he is still dehydrated, and what the next step is Telephone Encounter - Jacquie Hamilton L.P.N. - 02/18/2018 8:47 AM CDT Patient Notified and orders for IV fluids per verbal order [facility] due to labfindings Telephone Encounter - Ewa Alejandro M.D. - 02/17/2018 5:01 PM CDT Please inform Jonnathan that the test for intestinal bacteria is negative. The test for C diff is still pending. This is likely a self-limited virus documented in this encounter Plan of Treatment Not on filedocumented as of this encounter Visit Diagnoses Not on filedocumented in this encounter Care Teams Grain Manager Relationship Specialty Start Date End Date Ewa Alejandro M.D. PCP - General 03/13/17 01/09/20 [address] [place] [phone] documented as of this encounter
--- OUTSIDE RECORDS SUMMARY | 2022-05-21 11:35 | XMS_ITS | Encounter Summary ---
:1945 Author Organization [facility] Address [address] [place] [address] Care Team Providers Name Role Phone Ewa Alejandro M.D. Primary Care Provider [phone] Encounter Details Date Type Department Care Team Description 12/24/2017 Orders Only Department of Family Philip trimble Mellitus Type Medicine, Ewa Barclay, 2 (HCC) (Primary Dx) Clinic, in [place] [address] [place] [phone] Social History Tobacco Use Types Packs/Day Years [...] of this encounter Results (ABNORMAL) Hemoglobin A1c (01/22/2018 7:42 AM CDT) athologist Signature Hemoglobin A1c, 9.1 (H) 4.2 - 5.6 01/22/2018 [facility] B % 11:[address] [facility] Comment: Hemoglobin A1c values greater than [...] Organization Address City/State/ZIP Code Phon e Number [facility] [address] [place] [address] LAB documented in this encounter Visit Diagnoses Diagnosis Diabetes Mellitus Type 2 (HCC) - Primary documented in this encounter Care Teams Title Attorney Relationship Specialty Start Date End Date Ewa Alejandro M.D. PCP - General 03/13/17 01/09/202199 [place] [phone] documented as of this encounter
--- OUTSIDE RECORDS SUMMARY | 2022-05-21 11:35 | XMS_ITS | Encounter Summary ---
:1945 Author Organization [facility] Address [address] [place] [address] Care Team Providers Name Role Phone Ewa Alejandro M.D. Primary Care Provider Encounter Details Date Type Department Care Team Description 09/17/2017 Hospital Encounter Department of Lea Gonsalez ent Ischemic Laboratory Medicine Ewa brunson Attack in [place] [address] [place] [phone] Social History Tobacco Use Types Packs/Day Years [...] do you attend catholic or Never 2021 gnosticism services? Do you [...] Date/Time Associated Comments Diagnosis CREATININE WITH Routine 09/17/2017 8:50 AM Transient Ischemic Results for this EGFR, S/P TOWEL SEWER Attack procedure are i n the results section. documented in this encounter Results Creatinine with Estimated GFR (MDRD) (09/17/2017 8:50 AM TOWEL SEWER) P athologist Signature Creatinine 1.01 0.74 - 09/17/2017 [facility] 1.35 mg/dL 10:12 AM [facility] [place] [facility] eGFR 73 >=60 09/17/2017 [facility] Non-Black/Afric mL/min/BSA 10:12 AM [facility] [place] [facility] Comment: ----ADDITIONAL INFORMATION---- Estimated GFR calculated using the 2009 CKD_EPI creatinine equation. eGFR Black/ 84 >=60 mL/min/BSA 09/17/2017 10:1 2 AM [facility] [place] [facility] Comment: ----ADDITIONAL INFORMATION---- Estimated GFR calculated using the 2009 CKD_EPI creatinine equation. Specimen Anatomical Collection Method Collection Time Receive d Time (Source) Location / / Volume Laterality Blood (Blood, 09/17/2017 8:50 AM 09/17/20 8:56 Venous) TOWEL SEWER AM TOWEL SEWER Ewa Alejandro M.D. LAB BLOOD ADD-ON Performing Organization Address City/State/ZIP Code Phon e Number [facility] [address] [place] [id number] LAB documented in this encounter Visit Diagnoses Diagnosis Transient Ischemic Attack documented in this encounter Care Teams Concrete Pipe Machine Operator Relationship Specialty Start Date End Date Ewa Alejandro M.D. PCP - General 03/13/17 01/09/202199 [address] [phone] documented as of this encounter
--- OUTSIDE RECORDS SUMMARY | 2022-05-21 11:35 | XMS_ITS | Encounter Summary ---
:1945 Author Organization [facility] Address [address] [place] [address] Care Team Providers Name Role Phone Ewa Alejandro M.D. Primary Care Provider [phone] Reason for Visit Reason Comments Diarrhea diarrhea x 10 days with 20 p ound weight loss. vomiting starting today Encounter Details Date Type Department Care Team Description 02/16/2018 Office Visit Department of [facility] Alicia ch (Primary Dx); Medicine, [facility], in [place] [address] [place] [phone] Social History Tobacco Use Types Packs/Day Years [...] do you attend alevism or Never 2021 druze services? Do you [...] Sign Reading Time Taken Comments Blood Pressure 100/62 02/16/2018 9:32 AM CDT Pulse 84 02/16/2018 9:32 AM CDT Temperature 37.1 ??C (98.8 ??F) 02/16/2018 9:32 AM CDT Respiratory Rate 16 02/16/2018 9:32 AM CDT Oxygen Saturation - - Inhaled Oxygen Concentration - - Weight 102 kg (225 lb 6.7 oz) 02/16/2018 9:32 AM CDT Height 188 cm (6' 2.02) 02/16/2018 9:32 AM CDT Body Mass Index 28.93 02/16/2018 9:32 AM CDT documented in this encounter Progress Ewa Beckford M.D. - 02/16/2018 11:00 AM CDT CHIEF COMPLAINT/ REASON FOR VISIT Diarrhea and weight loss. HISTORY OF PRESENT ILLNESS Jonnathan Costa is a 72 y.o. male who presents to the clinic today for diarrhea and weight loss. About 10 days ago he started having multiple frequent episodes of urgent diarrhea. Since 4 am thismorning he believes he has had 12-13 diarrhea bowel movements. Jonnathan also felt nauseated this morning and vomited. He has not had any fevers. No blood in stools. He has had abdominal discomfort for thelast 10 days but no real pain or cramping. No recent treatment with antibiotics and no new supplements or medications. Since he has not been feeling well his blood sugars have been running higher. Over the last six months his blood sugars have been under better control than what they previously were. Jonnathan has had a decreased appetite and has lost weight. After reviewing the EMR, it is noted that heweighed 109.8 kg on 01/26 and today weighs 102.3 kg with a weight loss of 7.5 kg. He has noticed thatsince mid-September his appetite has not been the same as usual. When he was in in September Jonnathan weighed 110.2 kg and again, in December weighed 109.8 kg. In August and September he was having difficulty with dizzy spells which were felt to be related to low blood pressures. After his medication was adjusted the dizzy spells resolved. However, Jonnathan notes that he never really started feeling totally back to normal but has been able to do his usual activities despite not feeling completely like himself. The patient denies any additional questions or [...] ??? SYRINGE-NEEDLE,INSULIN,0.5 ML (INSULIN SYRINGE MISC) ??? amLODIPine (for_NORVASC) 5 mg tablet Take 5 mg by mouth 2 (two) times a day. ??? doxazosin (CARDURA) 4 mg tablet Take 1 tablet by mouth at bedtime. ??? lovastatin (MEVACOR) 40 mg tablet Take 2 tablets by mouth at bedtime. ??? traZODone (for_DESYREL) 50 mg tablet Take [...] 08/28/[address] Prasanna Bernal at the [facility]. ??? TONSILLECTOMY N/A PREVENTIVE SERVICES Social History Substance Use Topics ??? Smoking status: Former Smoker Quit date: 1979 ??? Smokeless tobacco: Never Used ??? Alcohol use No VITAL SIGNS Vitals: 02/16/18 0932 BP: 100/62 Pulse: 84 Temp: 37.1 ??C Resp: 16 Height: 188 cm Weight: 102.3 kg TempSrc: Temporal Body mass index is 28.93 kg/m??. PHYSICAL EXAMINATION General: Patient is in no acute distress, good hygiene and is dressed appropriately. ENT: Tympanic membranes are normal bilaterally. Oropharynx is without erythema or exudate. Nasal mucosa is without injection. Neck: Is without cervical lymphadenopathy. Heart: Regular rate and rhythm without murmur. Lungs: Clear to auscultation. Abdomen: Mild discomfort with palpation in the right upper quadrant. Extremities: Within normal limits. Skin: No rashes or suspicious lesions noted on exposed skin. Neuro: Alert and oriented x 3. DIAGNOSTICS LABORATORY: CMP and CBC results: reviewed. Stool pathogen studies results: pending. STAT CT abdomen at [facility] results pending. ASSESSMENT / PLAN #1 Diarrhea with weight loss CMP and CBC were checked today. Stool pathogen studies are pending. STAT CT abdomen at [facility] results are pending. #2 Acute renal insufficiency and hyperkalemia Discussed sending him over to [facility] for IV fluids which he declines at this time. He eat and drink at home and return in the morning for recheck and labs including potassium and creatinine. Follow up The patient will contact the clinic with any new or worsening symptoms. This document serves as a record of services personally performed by Ewa Roy MD. It was created on their behalf by Lulu Roldan, a trained electromedical equipment repairer. The creation of this record is based on the scribe's personal observations and the provider's statements to them. This document has been christie cked and approved by the attending provider. documented in this encounter Plan of Treatment Not on filedocumented as of this encounter Procedures Procedure Name Priority Date/Time Associated Comments Diagnosis GI PATHOGEN PANEL, Routine 02/16/2018 1:00 PM Diarrhea Res ults for this PCR, F CDT procedure are i n the results section. CBC WITH DIFFERENTIAL, Routine 02/16/2018 10:49 Diarrhea R esults for this B AM CDT procedure are i n the results section. COMPREHENSIVE Routine 02/16/2018 10:49 Diarrhea Results fo r this METABOLIC PANEL, S/P AM CDT procedu re are in the results section. documented in this encounter Results (ABNORMAL) Basic Metabolic Panel (02/17/2018 10:41 AM CDT) Analysis Performed At Patho logist Time Signature Potassium, S 5.0 3.6 - 5.2 02/17/2018 [facility] mmol/L 1:45 PM CDT [facility] Sodium, S 134 (L) 135 - 145 02/17/2018 [facility] mmol/L 1:45 PM CDT [facility] Chloride, S 98 98 - 107 02/17/2018 [facility] mmol/L 1:45 PM CDT [facility] Bicarbonate, S 21 (L) 22 - 29 02/17/2018 [facility] mmol/L 1:45 PM CDT [facility] Anion Gap 15 7 - 15 02/17/2018 [facility] 1:45 PM CDT [facility] BUN (Blood Urea 69 (H) 8 - 24 02/17/2018 [facility] Nitrogen), S mg/dL 1:45 PM CDT [facility] Creatinine 2.22 (H) 0.74 - 02/17/2018 [facility] 1.35 mg/dL 1:45 PM [facility] eGFR-Non 28 (L) >=60 02/17/2018 [facility] Black/ mL/min/BSA 1:45 PM [facility] Comment: ----ADDITIONAL INFORMATION---- Estimated GFR calculated using the 2009 CKD_EPI creatinine equation. eGFR-Black/ 33 (L) >=60 mL/min/BSA 02/17/2018 1:45 [facility] Comment: ----ADDITIONAL INFORMATION---- Estimated GFR calculated using the 2009 CKD_EPI creatinine equation. Calcium, Total, S 9.3 8.8 - 10.2 mg/dL 02/17/2018 1:45 PM [facility] Glucose, S 336 (H) 70 - 140 mg/dL 02/17/2018 1:45 PM [facility] Specimen Anatomical Collection Method Collection Time Receive d Time (Source) Location / / Volume Laterality Blood (Blood, 02/17/2018 10:41 02/17/2018 Venous) AM CDT 12:54 PM CDT Ewa Alejandro M.D. LAB BLOOD ADD-ON Performing Organization Address City/State/ZIP Code Phon e Number [facility] [address] [place] [id number] LAB C. difficile Toxin PCR, Feces (02/17/2018 8:00 AM CDT) P athologist Signature C. difficile Negative Negative 02/17/2018 [facility] Toxin PCR, F 10:41 PM CDT [facility] Comment: Notes\S\\S\Jonnathan Costa as [id number] Specimen Anatomical Collection Method Collection Time Receive d Time (Source) Location / / Volume Laterality Stool (Stool) 02/17/2018 8:00 AM 02/18/20 9:54 CDT PM CDT Ewa Alejandro M.D. LAB MICROBIOLOGY - GEN ERAL ORDERABLES Performing Organization Address City/State/ZIP Code Phon e Number - [address] [place] [address] [place] [facility] GI Pathogen Panel, PCR, Feces (02/16/2018 1:00 PM CDT) [facility] Method Time Signature Specimen Source STOOL 02/17/2018 [facility] 6:26 AM CDT [facility] Campylobacter Negative Negative 02/17/2018 [facility] species 6:26 AM CDT [facility] C. difficile toxin Negative Negative 02/17/2018 [facility] 6:26 AM CDT [facility] Plesiomonas Negative Negative 02/17/2018 [facility] shigelloides 6:26 AM CDT [facility] Salmonella species Negative Negative 02/17/2018 [facility] 6:26 AM CDT [facility] Vibrio species Negative Negative 02/17/2018 [facility] 6:26 AM CDT [facility] Vibrio cholerae Negative Negative 02/17/2018 [facility] 6:26 AM CDT [facility] Yersinia species Negative Negative 02/17/2018 [facility] 6:26 AM CDT [facility] Enteroaggregative E. Negative Negative 02/17/2018 [facility] coli (EAEC) 6:26 AM CDT [facility] Enteropathogenic E. Negative Negative 02/17/2018 [facility] coli (EPEC) 6:26 AM CDT [facility] Enterotoxigenic E. Negative Negative 02/17/2018 [facility] coli (ETEC) 6:26 AM CDT [facility] Shiga toxin Negative Negative 02/17/2018 [facility] producing E. coli 6:26 AM CDT [facility] Shigella/Enteroinvas Negative Negative 02/17/2018 [facility] [place] akil E. coli 6:26 AM CDT [facility] Cryptosporidium Negative Negative 02/17/2018 [facility] species 6:26 AM CDT [facility] Cyclospora Negative Negative 02/17/2018 [facility] cayetanensis 6:26 AM CDT [facility] Entamoeba Negative Negative 02/17/2018 [facility] histolytica 6:26 AM CDT [facility] Giardia Negative Negative 02/17/2018 [facility] 6:26 AM CDT [facility] Adenovirus F40/41 Negative Negative 02/17/2018 [facility] 6:26 AM CDT [facility] Astrovirus Negative Negative 02/17/2018 [facility] 6:26 AM CDT [facility] Norovirus GI/GII Negative Negative 02/17/2018 [facility] 6:26 AM CDT [facility] Rotavirus Ag, F Negative Negative 02/17/2018 [facility] 6:26 AM CDT [facility] Sapovirus Negative Negative 02/17/2018 [facility] 6:26 AM CDT [facility] Comment: ----ADDITIONAL INFORMATION---- This assay is performed using the FDA-cl eared FilmArray GI Panel ([employer] Specimen Anatomical Collection Method Collection Time Receive d Time (Source) Location / / Volume Laterality Stool (Stool) 02/16/2018 1:00 PM 02/17/20 18 CDT 11:25 PM CDT Ewa Alejandro M.D. LAB MICROBIOLOGY - GEN ERAL ORDERABLES Performing Organization Address City/State/ZIP Code Phon e Number [facility] [address] [place] [address] LAB (ABNORMAL) Comprehensive Metabolic Panel (02/16/2018 10:49 AM CDT) Analysis Performed At Patho logist Time Signature Potassium, S 5.5 (H) 3.6 - 5.2 02/16/2018 [facility] mmol/L 1:56 PM CDT [facility] Sodium, S 137 135 - 145 02/16/2018 [facility] mmol/L 1:56 PM CDT [facility] Chloride, S 100 98 - 107 02/16/2018 [facility] mmol/L 1:56 PM CDT [facility] Bicarbonate, S 19 (L) 22 - 29 02/16/2018 [facility] mmol/L 1:56 PM CDT [facility] Anion Gap 18 (H) 7 - 15 02/16/2018 [facility] 1:56 PM [facility] BUN (Blood Urea 66 (H) 8 - 24 02/16/2018 [facility] Nitrogen), S mg/dL 1:56 PM [facility] Creatinine 2.32 (H) 0.74 - 02/16/2018 [facility] 1.35 mg/dL 1:56 PM [facility] eGFR-Non 27 (L) >=60 02/16/2018 [facility] Black/ mL/min/BSA 1:56 PM [facility] [place] [facility] Comment: ----ADDITIONAL INFORMATION---- Estimated GFR calculated using the 2009 CKD_EPI creatinine equation. eGFR-Black/ 31 (L) >=60 mL/min/BSA 02/16/2018 1:56 [facility] Comment: ----ADDITIONAL INFORMATION---- Estimated GFR calculated using the 2009 CKD_EPI creatinine equation. Calcium, Total, S 8.8 8.8 - 10.2 02/16/2018 7:45 PM [facility] mg/dL [facility] Glucose, S 276 (H) 70 - 140 mg/dL 02/16/2018 1:[address] [facility] [place] Protein, Total, S 7.0 6.3 - 7.9 g/dL 02/16/2018 1:[address] [facility] [place] Albumin, S 4.4 3.5 - 5.0 g/dL 02/16/2018 1:[address] [facility] [place] [facility] Aspartate 16 8 - 48 U/L 02/16/2018 1:56 PM [facility] Aminotransferase (AST), S [facility] [place] Alkaline Phosphatase, S 121 (H) 45 - 115 U/L 02/16/2018 1: [address] [facility] [place] Alanine Aminotransferase 17 7 - 55 U/L 02/16/2018 1:[address] [facility] (ALT), S [facility] Bilirubin, Total, S 0.6 <=1.2 mg/dL 02/16/2018 1:56 PM [facility] Specimen Anatomical Collection Method Collection Time Receive d Time (Source) Location / / Volume Laterality Blood (Blood, 02/16/2018 10:49 02/16/2018 1:03 Venous) AM CDT PM CDT Ewa Alejandro M.D. LAB BLOOD ADD-ON Performing Organization Address City/State/ZIP Code Phon e Number [facility] [address] [place] [address] LAB (ABNORMAL) CBC with Differential, Blood (02/16/2018 10:49 AM CDT) [facility] Method Time Signature Hemoglobin 14.8 13.2 - 02/16/2018 [facility] 16.6 g/dL 11:24 AM [facility] Hematocrit 41.0 38.3 - 02/16/2018 [facility] 48.6 % 11:24 AM [facility] Erythrocytes 4.76 4.35 - 02/16/2018 [facility] 5.65 11:24 AM CDT HEALTH x10(12)/L [facility] MCV 86.1 78.2 - 02/16/2018 [facility] 97.9 fL 11:24 AM [facility] RBC Distrib Width 13.4 11.8 - 02/16/2018 [facility] 14.5 % 11:24 AM [facility] Platelet Count 230 135 - 317 02/16/2018 [facility] x10(9)/L 11:24 AM [facility] Leukocytes 13.2 (H) 3.4 - 9.6 02/16/2018 [facility] x10(9)/L 11:24 AM [facility] Neutrophils 9.97 (H) 1.56 - 02/16/2018 [facility] 6.45 11:24 AM CDT [facility] x10(9)/L [facility] Lymphocytes 1.63 0.95 - 02/16/2018 [facility] 3.07 11:24 AM CDT [facility] x10(9)/[facility] Monocytes 0.71 0.26 - 02/16/2018 [facility] 0.81 11:24 AM CDT HEALTH x10(9)/L [facility]- [place] [facility] Eosinophils 0.85 (H) 0.03 - 02/16/2018 [facility] 0.48 11:24 AM CDT HEALTH x10(9)/L SYSTEM- [place] [facility] Basophils 0.02 0.01 - 02/16/2018 [facility] 0.08 11:24 AM CDT HEALTH x10(9)/L SYSTEM- [place] [facility] Specimen Anatomical Collection Method Collection Time Receive d Time (Source) Location / / Volume Laterality Blood (Blood, 02/16/2018 10:49 02/16/2018 Venous) AM CDT 10:52 AM CDT Ewa Alejandro M.D. LAB BLOOD ADD-ON Performing Organization Address City/State/ZIP Code Phon e Number - [address] [place] [address] [facility] - [address] [place] [address] [facility] documented in this encounter Visit Diagnoses Diagnosis Diarrhea - Primary Insufficiency Renal documented in this encounter Care Teams Reconditioner Relationship Specialty Start Date End Date Ewa Alejandro M.D. PCP - General 03/13/17 01/09/20 [address] [place] [id number] documented as of this encounter
--- OUTSIDE RECORDS SUMMARY | 2022-05-21 11:36 | XMS_ITS | Encounter Summary ---
:1945 Author Organization [facility] Address [address] [place] [address] Care Team Providers Name Role Phone Unavailable Primary Care Provider Unavailable Encounter Details Date Type Department Care Team Description 10/07/2016 Hospital Encounter HX [facility] Ailyn Bernal M.D. [address] [place] [address] (Wo rk) Social History Tobacco Use Types Packs/Day Years Used Date Smoking Tobacco: Former Alcohol Habits Answer Date Recorded How often [...] do you attend zoroastrianism or Never 2021 roman catholic services? Do [...] Sign Reading Time Taken Comments Blood Pressure 132/70 10/07/2016 9:17 AM APPRENTICE JOCKEY Pulse 88 10/07/2016 9:17 AM APPRENTICE JOCKEY Temperature - - Respiratory Rate 20 10/07/2016 9:17 AM APPRENTICE JOCKEY Oxygen Saturation - - Inhaled Oxygen Concentration - - Weight - - Height - - Body Mass Index - - documented in this encounter Medications at Time of Discharge Medication Sig Dispensed Refills Start Date End Date clopidogreL (PLAVIX) 75 mg Take 1 tablet by 0 09/2015 tablet mouth daily. albuterol sulfate 90 Inhale 2 puffs 0 08/19/2016 09/13/2020 mcg/actuation aerosol powdr every 6 (six) breath activated hours as needed. budesonide-formoterol Inhale 2 puffs as 0 013 12/16/2019 (for_SYMBICORT) 160-4.5 needed. mcg/actuation inhaler budesonide/formoterol Inhale 2 Inhalers 0 016 04/28/2018 fumarate (SYMBICORT INHL) 2 (two) times a day. doxazosin (CARDURA) 4 mg Take 1 tablet by 0 12/3105/08/2018 tablet mouth at bedtime. gemfibroziL (LOPID) 600 mg Take 1 tablet by 0 11/06/2021 tablet mouth. hydroCHLOROthiazide Take 1 tablet by 0 10/07/2016 02/20/2018 (for_HYDRODIURIL) 25 mg mouth daily. tablet insulin aspart (NovoLOG) 100 Inject 20 Units 0 09/18/2018 unit/mL injection under the skin 3 (three) times a day before meals. insulin glargine (LANTUS) Inject 20 Units 0 01/3105/06/2020 100 unit/mL injection under the skin at bedtime. insulin NPH and regular LW Addl 0 11/15/2008 0 05/04/2020 human (HumuLIN 70/30 U-100 Instr:Indicated KwikPen) 100 unit/mL (70-30) for: Diabetes injection lisinopril Take 1 tablet by 0 11/15/2008 01/21/20 20 (PRINIVIL,ZESTRIL) 10 mg mouth. tablet lisinopriL Take 1 tablet by 0 11/15/2008 11/06/19 22 (PRINIVIL,ZESTRIL) 10 mg mouth daily. tablet losartan (for_COZAAR) 100 mg Take 50 mg by 0 09/2905/06/2020 tablet mouth daily. lovastatin (MEVACOR) 40 mg Take 2 tablets by 0 05/08/2018 tablet mouth at bedtime. metFORMIN (for_GLUCOPHAGE) Take 1 tablet by 0 06/22/2018 1,000 mg tablet mouth 2 (two) times a day with meals. metFORMIN (GLUMETZA) 1,000 Take 1 tablet by 0 11/07/2021 mg 24 hr tablet mouth daily. documented as of this encounter Progress Notes Ailyn Bernal M.D. - 10/07/2016 9:01 AM CST [id number] CHIEF COMPLAINT/REASON FOR VISIT Lower urinary tract symptoms. HISTORY OF PRESENT ILLNESS This is a 71-year-old male who underwent GreenLight photoselective vaporization of the prostate on August 28, 2016. As a result, he is approximately 6 weeks status post GreenLight PVP and approximately 4-1/2 months status post transurethral resection of a bladder tumor, which was performed on 2015. The tumor was located slightly lateral to the right ureteral orifice but did not involve the ureteral orifice. This was transitional cell carcinoma grade 1, stage Ta. At this point, he is doing very well. He has not had any blood in over a month. He has good control other than occasionally he will have extreme urgency when snowmobiling. He is currently taking doxazosin 4 mg and finasteride 5 mg daily. He denies any dysuria. DIAGNOSTICS Uroflow is performed. He voided 41 mL in 42 seconds. Peak and mean are 8 and 2 mL/second respectively. Postvoid residual is 18 mL. Of note, his postvoid residual when he was seen the day after surgery was 233. IMPRESSION/REPORT/PLAN 1. Benign prostatic hypertrophy, clinically improved following GreenLight photoselective vaporization of the prostate. 2. History of bladder cancer. PLAN: In terms of his benign prostatic hypertrophy, I would like to try and get him off his medications. As a result, it is recommended that he decrease the doxazosin from 4 to 2 mg daily for 1 to 2 weeks and then stop the medication. He should check his blood pressure when he is on the lower dose andthen discontinue the medication. Assuming he develops hypertension, he is to resume the doxazosin and discuss it with his primary provider. They may wish to change medications or continue the same one.In terms of the finasteride, he has approximately 1 month left. I have asked him to finish his supply and then discontinue the medication. In terms of his bladder cancer he is due to follow up in 6 to 8 weeks for a cystoscopy. At that point, we will also collect urine for cytology and FISH studies. We will have him come back in 2 months for those tests. He may contact us earlier should problems arise. Ailyn Bernal M.D./phong Electronically Signed By: AILYN BERNAL MD On: 10/07/2016 02:11 PM Source: [facility] [email or web address] Document Id: [id number] ENTICE JOCKEY documented in this encounter Miscellaneous Notes Miscellaneous - Ailyn Bernal M.D. - 10/07/2016 9:57 AM CST Ambulatory Patient Summary [facility] [address] [place], [place] [id number] Visit Information Name: JONNATHAN COSTA [facility] Number: [id number] Current Date: 10/07/2016 09:57:41 Physicians Attending Provider: AILYN BERNAL MD Primary Care Provider: PIERO ROJAS MD JONNATHAN COSTA has been given the following list of follow-up instructions, medication list, and patient education materials: Follow-up Instructions Your Medications Here is a list of your medications. It is important to take your medications as directed. Use a pillbox or chart to help remind you to take your medications. Please let your doctor or nurse know if you have problems taking your medications. Medication/Strength How to Take Indications/Special Instructions/Comments/Notes for Patient Medication Changes/Routing albuterol (albuterol CFC free 90 mcg/inh inhalation aerosol) See Instructions, as needed for Shortness of breath / Wheezing 2 puff(s) Inhalation BID and every 2 hours if needed for cough or shortness of breath. atorvastatin (atorvastatin 40 mg oral tablet) 1 Tablet(s), Oral, once a day (at bedtime) budesonide-formoterol (budesonide-formoterol 160 mcg-4.5 mcg/inh inhalation aerosol) 2 puff(s), Inhalation, two times a day clopidogrel (Plavix 75 mg oral tablet) 1 Tablet(s), Oral, once a day doxazosin (doxazosin 4 mg oral tablet) 1 Tablet(s), Oral, once a day (at bedtime) finasteride (finasteride 5 mg oral tablet) 1 Tablet(s), Oral, once a day gemfibrozil (gemfibrozil 600 mg oral tablet) 1 Tablet(s), Oral, two times a day hydroCHLOROthiazide (hydroCHLOROthiazide 25 mg oral tablet) 1 Tablet(s), Oral, once a day insulin aspart (NovoLOG 100 units/mL subcutaneous solution) 15 units, Subcutaneous, three times a day before meals (Vial) Give within 5-10 minutes before a meal. insulin glargine (Lantus 100 units/mL subcutaneous solution) 40 units, Subcutaneous, once a day (at bedtime) losartan (losartan 100 mg oral tablet) 1 Tablet(s), Oral, once a day metformin (metformin 1000 mg oral tablet) 1 Tablet(s), Oral, two times a day with meals Stop Taking the Following Medications: Medication list as of 10-07-16 09:57 Attention: If you have any medications at home that are not on this list, DO NOT take them until youcontact your provider for clarification. Give a copy of your medication list to your primary care provider. Update your medication list any time medications or doses are changed and carry your medication list at all times in case of emergency. Electronically Signed By: AILYN BERNAL MD Signed On:07-OCT-2016 09:57:37 Your Allergies & Intolerances Substance Reaction Symptoms Category Comments doxycycline severe rash Drug penicillin Drug sulfa drugs Drug Your Problem List Problem Status Onset Comments Diabetes mellitus type II Active 11/05/1996 DM Type2 Neuropathy Active 08/24/2008 Hypertension Active Hypercholesterolemia* Active Cancer Bladder Lateral Wall Active Hyperplasia Prostate (BPH) Localized With Obstruction Active Your Upcoming Appointments Date Time Location Provider 11/07/2016 09:45 [facility] Ailyn Bernal MD Attention: Contact your local Clinic if further appointment detail needed. Consider Using Patient Online Services Patient Online Services is a secure online and Mobile application that lets you: ?? View lab and test results ?? View portions of your medical record including clinical notes, immunizations and discharge summaries ?? Request an appointment or medication refill ?? Review your appointment schedule ?? Send secure messages to your care team Its easy to create an account if you dont have one. Go to [email or web address] and click on Create Your Account. Then, follow the directions to complete the online form. Youll be asked for your [facility] number which you can find at the top of this document. Your Goals/Additional instructions: Source: [facility] POWERCHART Document Id: [id number] ENTICE JOCKEY Miscellaneous - Ailyn Bernal M.D. - 10/07/2016 9:57 AM CST Ambulatory Discharge Medication List [facility] [address] [place], [place] [id number] Visit Information Name: JONNATHAN COSTA [facility] Number: [id number] Current Date: 10/07/2016 09:57:40 Attending Provider: AILYN BERNAL MD Primary Care Provider: PIERO ROJAS MD JONNATHAN COSTA has been given the following list of medications: Your Medications It is important to take your medications as directed. Use a pill box or chart to help remind you to take your medications. Please let your doctor or nurse know if you have problems taking your medications. Medication/Strength How to Take Indications/Special Instructions/Comments/Notes for Patient Medication Changes/Routing albuterol (albuterol CFC free 90 mcg/inh inhalation aerosol) See Instructions, as needed for Shortness of breath / Wheezing 2 puff(s) Inhalation BID and every 2 hours if needed for cough or shortness of breath. atorvastatin (atorvastatin 40 mg oral tablet) 1 Tablet(s), Oral, once a day (at bedtime) budesonide-formoterol (budesonide-formoterol 160 mcg-4.5 mcg/inh inhalation aerosol) 2 puff(s), Inhalation, two times a day clopidogrel (Plavix 75 mg oral tablet) 1 Tablet(s), Oral, once a day doxazosin (doxazosin 4 mg oral tablet) 1 Tablet(s), Oral, once a day (at bedtime) finasteride (finasteride 5 mg oral tablet) 1 Tablet(s), Oral, once a day gemfibrozil (gemfibrozil 600 mg oral tablet) 1 Tablet(s), Oral, two times a day hydroCHLOROthiazide (hydroCHLOROthiazide 25 mg oral tablet) 1 Tablet(s), Oral, once a day insulin aspart (NovoLOG 100 units/mL subcutaneous solution) 15 units, Subcutaneous, three times a day before meals (Vial) Give within 5-10 minutes before a meal. insulin glargine (Lantus 100 units/mL subcutaneous solution) 40 units, Subcutaneous, once a day (at bedtime) losartan (losartan 100 mg oral tablet) 1 Tablet(s), Oral, once a day metformin (metformin 1000 mg oral tablet) 1 Tablet(s), Oral, two times a day with meals Stop Taking the Following Medications: Medication list as of 10-07-16 09:57 Attention: If you have any medications at home that are not on this list, DO NOT take them until youcontact your provider for clarification. Give a copy of your medication list to your primary care provider. Update your medication list any time medications or doses are changed and carry your medication list at all times in case of emergency. Electronically Signed By: AILYN BERNAL MD Signed On:07-OCT-2016 09:57:37 Additional Information: Source: [facility] POWERCHART Document Id: [id number] ENTICE JOCKEY Miscellaneous - Lester Barry, C.M.A. - 10/07/2016 9:21 AM CST Urology AUA/BPH Symptom Score Urology AUA/BPH Symptom Score Entered On: 10/07/2016 9:23 APPRENTICE JOCKEY Performed On: 10/07/2016 9:21 APPRENTICE JOCKEY by LESTER BARRY CMA Urology AUA/BPH Symptom Score Emptying Bladder After Urinating : Not at all Urinate 2 Hours After Urinating : Not at all Stop/Start Again When Urinating : Less than 1 time in 5 Difficult to Postpone Urination : Less than 1 time in 5 Weak Urinary Stream : Not at all Push/Strain to Begin Urination : Not at all Up to Urinate at Night : 4 times Total Symptom Score : 6 Feel About Urinary Condition : Satisfied LESTER BARRY DEVELOPMENTAL SPECIALIST - 10/07/2016 9:21 APPRENTICE JOCKEY Source: [email or web address] Document Id: [id number] APPRENTICE JOCKEY!11 ENTICE JOCKEY Miscellaneous - Lester Barry, C.M.A. - 10/07/2016 9:17 AM CST Adult Material Worker Intake/History Adult Material Worker Intake/History Entered On: 10/07/2016 9:21 APPRENTICE JOCKEY Performed On: 10/07/2016 9:17 APPRENTICE JOCKEY by LESTER BARRY [facility] Intake Chief Complaint : Rck: s/p greenlight PVP (09/05/16) - some difficulty holding urine Peripheral Pulse Rate : 88 /min Respiratory Rate : 20 /min Heart Rhythm : Regular Systolic Blood Pressure : 132 mmHg Diastolic Blood Pressure : 70 mmHg NIBP Mean : 91 mmHg BP Location : Left upper extremity Blood Pressure Cuff Size : Large LESTER BARRY CMA - 10/07/2016 9:17 APPRENTICE JOCKEY General Info Information Given By : Patient Preferred Communication Mode : Verbal Languages : Pashto Is Patient Female and 13-50 no hysterectomy : No LESTER BARRY CMA - 10/07/2016 9:17 APPRENTICE JOCKEY Subjective Pain Symptoms : No LESTER BARRY [facility] - 10/07/2016 9:17 APPRENTICE JOCKEY Dependent Habits Exposure to Tobacco Smoke : Other: quit in 1982 Smoking Status : Former smoker Tobacco 2A : Yes Tobacco Use/Currently Using : No Tobacco Use/Last 30 Days : No Tobacco Use/Last 12 months : No Tobacco Last Use/Year : 1982 LESTER BARRY [facility] - 10/07/2016 9:17 APPRENTICE JOCKEY Caffeine Use Grid Caffeine Use : Current Type : Chocolate, Coffee, Soft drinks Frequency : Daily LESTER BARRY [facility] - 10/07/2016 9:17 APPRENTICE JOCKEY Recreational Drug Use Grid Drug Use : None LESTER BARRY [facility] - 10/07/2016 9:17 APPRENTICE JOCKEY Source: [employer] Document Id: [id number] APPRENTICE JOCKEY!34 ENTICE JOCKEY documented in this encounter Plan of Treatment Not on filedocumented as of this encounter Visit Diagnoses Not on filedocumented in this encounter Additional Health Concerns Assessment Noted Time PHQ-9 Depression Total Score: 6 01/31/2015 12:28 PM CD T documented as of this encounter
--- OUTSIDE RECORDS SUMMARY | 2022-05-21 11:36 | XMS_ITS | Encounter Summary ---
:[address] [facility] Address [address] [place] [address] Care Team Providers Name Role Phone Unavailable Primary Care Provider Unavailable Encounter Details Date Type Department Care Team Description 03/03/2017 Hospital Encounter HX [facility] Ewa Forbes M.D. [address] [place], [place] [phone] (Wo rk) Social History Tobacco Use Types [...] do you attend anabaptist or Never 2021 restorationist services? Do you [...] Sign Reading Time Taken Comments Blood Pressure 142/72 03/03/2017 8:16 AM CDT Pulse - - Temperature - - Respiratory [...] as of this encounter Progress Notes Ewa Weiss M.D. - 03/03/2017 8:02 AM CDT [id number] CHIEF COMPLAINT/ REASON FOR VISIT Review recent lab results. HISTORY OF PRESENT ILLNESS Jonnathan is a 71 year old male who presents to the clinic today to review recent lab results. He had labs drawn on 02/27/2017 and is here today to review those results. Lipid panel showed LDL of 88, HDL of 29 triglycerides of 770 and total cholesterol of 238. On 11/14/2015 LDL was 113, HDL 37, [id number] and total cholesterol 214. Jonnathan has been prescribed Atorvastatin 40 mg and Gemfibrozil 600 mg twice daily. However, [facility] and has not always been given Atorvastatin as prescribed and has been given other statins in place of Atorvastatin. He is currently taking Lovastatin 40 mg in addition to Gemfibrozil 600 mg twice daily. Per the EMR Jonnathan had an A1C checked at the [facility] on 11/08/2016 which showed a result of 9.1%. We checked an A1C here at the clinic on 02/27/2017 with a result of 8.4%. He reports that he had an A1C checked a couple weeks ago at the [facility] and his A1C was 9.4%. After that result was reviewed by his doctor at the [facility] he was placed on a rigid diet in order to get better control of his diabetes. Jonnathan has plans tomeet with a pharmacist and gang leader monthly at the [facility] in order to keep him on track. His blood pressure is noted to be elevated today. He rarely checks his blood pressure at home. Thereare times when his diastolic blood pressure goes down into the 60s. The patient denies any additional questions or concerns at this time. MEDICATIONS Post-visit Medication Reconciliation Reviewed and are as outlined in the EMR includin. Lovastatin 80 mg, (#2 40 mg tabs), PO, daily at bedtime, adjusted today. ALLERGIES Penicillin. Sulfa drugs. Doxycycline causes severe rash. SYSTEMS REVIEW Please see HPI for pertinent positives, otherwise rest of ROS negative. PAST MEDICAL/SURGICAL HISTORY 1. Benign prostatic hypertrophy. 2. 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 3. Hypertension. 4. Hypercholesterolemia. 5. Erectile dysfunction. 6. Pulmonary symptomatology, diagnosis at the [facility] unclear, but probably some degree of COPD. 7. Status post left cataract surgery at the [facility]. 8. Tonsillectomy. 9. Obstructive sleep apnea, prescribed CPAP therapy but is currently not using. 10. 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 Bernal. 11. Asthma. 12. Greenlight photoselective vaporization of the prostate and cystoscopy with bladder biopsy and fulguration of a 2cm area; 08/28/[address] Prasanna Bernal at the [facility]. PREVENTIVE SERVICES Tobacco use: none, former smoker (quit in 1982). VITAL SIGNS HEIGHT: 188 cm. WEIGHT: 109.2 kg. BMI: 30.9 kg/m2. TEMP: 36.4 Deg C. PULSE: 72 /min. RESP: 16 /min. SYSTOLIC: 152 mmHg, 142 mmHg. DIASTOLIC: 96 mmHg, 72 mmHg. PHYSICAL EXAMINATION GENERAL: Patient is in no acute distress, good hygiene and is dressed appropriately. HEART: Regular rate and rhythm without murmur. LUNGS: Clear to auscultation. EXTREMITIES: Within normal limits with no edema of the lower extremities. NEURO: Alert and oriented x3. IMPRESSION/REPORT/PLAN 1. Insulin dependent type II diabetes, uncontrolled. He is working with providers at the [facility] to get this under better control. He should continue with his current regimen at this time. Patient was encouraged to continue working with lifestyle modifications. 2. Hypercholesterolemia. I am concerned that his triglycerides are elevated despite being on statin therapy and Gemfibrozil. As the [facility] is providing him with Lovastatin rather than Atorvastatin will increase his dose of Lovastatin from 40 mg to 80 mg daily at bedtime. He will continue with current doseof Gemfibrozil 600 mg twice daily. 3. Essential hypertension. Blood pressures are elevated today. I recommended that he begin checking his blood pressure regularly outside of the clinic. If he finds blood pressures continuously 140/90 or higher I would like him to contact my office. He will continue with current medications at this time which include Doxazosin 4 mg daily, Finasteride 5 mg daily, Hydrochlorothiazide 25 mg daily and Losartan 100 mg daily. 4. Follow up. The patient will contact the clinic with any new or worsening symptoms. This document serves as a record of services personally performed by Ewa Roy MD. It was created on their behalf by Lulu Roldan, a trained nurses medical assistants phlebotomists. The creation of this record is based on the scribe's personal observations and the provider's statements to them. This document has been christie cked and approved by the attending provider. Ewa Hinton M.D./livia Electronically Signed By: EWA WEISS MD On: 03/17/2017 12:36 PM Source: [facility] MHSDOLBEYNONRADSYS Document Id: [id number] documented in this encounter Miscellaneous Notes Miscellaneous - Marti Hamilton, L.P.N. - 03/03/2017 8:16 AM CDT Ambulatory Vitals Height Weight Ambulatory Vitals Height Weight Entered On: 03/03/2017 8:17 CDT Performed On: 03/03/2017 8:16 CDT by MARTI HAMILTON LPN Vitals/Ht/Wt Systolic Blood Pressure : 142 mmHg (HI) Diastolic Blood Pressure : 72 mmHg NIBP Mean : 95 mmHg BP Location : Left upper extremity Blood Pressure Cuff Size : Regular Height : 188 cm(Converted to: 6 ft 2 inch(es), 74 inch(es)) MARTI HAMILTON LPN - 03/03/2017 8:16 CDT Source: [facility] Document Id: [id number] CDT!8 Miscellaneous - Marti Hamilton L.P.N. - 03/03/2017 8:14 AM CDT Adult Multilith Operator Intake/History Adult Multilith Operator Intake/History Entered On: 03/03/2017 8:16 CDT Performed On: 03/03/2017 8:14 CDT by MARTI HAMILTON LPN Intake Chief Complaint : review lab results from 02/27/2017 Temperature Core : 36.4 DegC(Converted to: 97.5 DegF) (LOW) Peripheral Pulse Rate : 72 /min Respiratory Rate : 16 /min Systolic Blood Pressure : 152 mmHg (HI) Diastolic Blood Pressure : 96 mmHg (>HHI) NIBP Mean : 115 mmHg BP Location : Left upper extremity Blood Pressure Cuff Size : Regular Height : 188 cm(Converted to: 6 ft 2 inch(es), 74 inch(es)) Actual Weight : 109.20 kg(Converted to: 240 lb 12 oz) Weight Source : Standing scale Dosing Weight Clinic : 109.2 kg Prosthetic device on during patient weight : No Clinic BSA : 2.39 Body Mass Index : 30.9 kg/m2 MARTI HAMILTON LPN - 03/03/2017 8:14 CDT General Info Information Given By : Patient Preferred Communication Mode : Verbal Languages : Cymraes Is Patient Female and 13-50 no hysterectomy : No MARTI HAMILTON LPN - 03/03/2017 8:14 CDT Subjective Pain Symptoms : No MARTI HAMILTON LPN - 03/03/2017 8:14 CDT Dependent Habits Exposure to Tobacco Smoke : Other: quit in 1982 Smoking Status : Former smoker Tobacco 2A : Yes Tobacco Use/Currently Using : No Tobacco Use/Last 30 Days : No Tobacco Use/Last 12 months : No Tobacco Last Use/Year : 1982 MARTI HAMILTON [facility] - 03/03/2017 8:14 CDT Caffeine Use Grid Caffeine Use : Current Type : Chocolate, Coffee, Soft drinks Frequency : Daily MARTI HAMILTON [facility] - 03/03/2017 8:14 CDT Recreational Drug Use Grid Drug Use : None MARTI HAMILTON [facility] - 03/03/2017 8:14 CDT Source: [employer] Document Id: [id number] CDT!41 documented in this encounter Plan of Treatment Not on filedocumented as of this encounter Visit Diagnoses Not on filedocumented in this encounter Additional Health Concerns Assessment Noted Time PHQ-9 Depression Total Score: 6 01/31/2015 12:28 PM CD T documented as of this encounter
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
--- OUTSIDE RECORDS SUMMARY | 2022-05-21 11:36 | XMS_ITS | Encounter Summary ---
:1945 Author Organization [facility] Address [address] [place] [address] Care Team Providers Name Role Phone Unavailable Primary Care Provider Unavailable Encounter Details Date Type Department Care Team Description 02/06/2017 Hospital Encounter HX NO MAPPING Virginia Bernal M.D. [address] [place], [place] [phone] (Wo rk) Social History [...] mouth daily. documented as of this encounter Plan of Treatment Not on filedocumented as of this encounter Visit Diagnoses Not on filedocumented in this encounter Additional Health Concerns Assessment Noted Time PHQ-9 Depression Total Score: 6 01/31/2015 12:28 PM CD T documented as of this encounter
--- OUTSIDE RECORDS SUMMARY | 2022-05-21 11:36 | XMS_ITS | Encounter Summary ---
:1945 Author Organization [facility] Address [address] [place] [address] Care Team Providers Name Role Phone Ewa Alejandro M.D. Primary Care Provider Encounter Details Date Type Department Care Team Description 05/08/2017 Hospital Encounter HX NO MAPPING Virginia Bernal M.D. [address] [place], [place] [phone] (Wo rk) Social History [...] do you attend latter-day or Never 2021 tenriism services? Do you [...] mouth daily. documented as of this encounter Miscellaneous Notes Miscellaneous - Conversion, Historical Provider Ser - 05/08/2017 11:59 PM CDT Coding Summary-Paper Based CODING DATE: 05/20/2017 FINAL [facility] STATUS: * Discharged to Home or Self Care PAYOR: Medicare Advantage ADMIT DX: REASON FOR VISIT DX: FINAL DX: PRINCIPAL: Z85.51 Personal history of malignant neoplasm of bladder SECONDARY: PROCEDURES DOCTOR NAME DATE NOTE: The code number assigned matches the documented diagnosis and / or procedure in the patient's chart. However, the narrative phrase printed from the coding software may appear abbreviated, or result in slightly different terminology. Coded By: LUIS EDUARDO TREVIZO Date Saved: 05/20/2017 02:50 pm Source: [facility] POWERCHART Document Id: [id number] documented in this encounter Plan of Treatment Not on filedocumented as of this encounter Visit Diagnoses Not on filedocumented in this encounter Additional Health Concerns Assessment Noted Time PHQ-9 Depression Total Score: 6 01/31/2015 12:28 PM CD T documented as of this encounter Care Teams Upscale Security Officer Relationship Specialty Start Date End Date Ewa Alejandro M.D. PCP - General 03/13/17 01/09/[address] [phone] documented as of this encounter
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
--- OUTSIDE RECORDS SUMMARY | 2022-05-21 11:36 | XMS_ITS | Encounter Summary ---
:1945 Author Organization [facility] Address [address] [place] [address] Care Team Providers Name Role Phone Ewa Alejandro M.D. Primary Care Provider [phone] Encounter Details Date Type Department Care Team Description 09/05/2017 Abstract Department of Community Internal Provider , [facility] Medicine in [address] [place] [place] [address] Social History Tobacco Use Types Packs/Day [...] do you attend caodaism or Never 2021 voodoo services? Do you belong to any clubs [...] documented as of this encounter Care Teams Dam Tender Assistant Relationship Specialty Start Date End Date Ewa Alejandro M.D. PCP - General 03/13/17 01/09/20 [address] [address] documented as of this encounter
--- OUTSIDE RECORDS SUMMARY | 2022-05-21 11:36 | XMS_ITS | Encounter Summary ---
:1945 Author Organization [facility] Address [address] [place] [address] Care Team Providers Name Role Phone Piero Alejandro M.D. Primary Care Provider [phone] Encounter Details Date Type Department Care Team Description 07/17/2017 Hospital Encounter HX [facility] Piero Forebs M.D. [address] [place], [place] [phone] (Wo rk) Social History [...] do you attend bahai or Never 2021 jehovah's witness services? Do [...] Sign Reading Time Taken Comments Blood Pressure 140/70 07/17/2017 3:29 PM CDT Pulse 80 07/17/2017 3:26 PM CDT Temperature - - Respiratory Rate 20 07/17/2017 3:26 PM CDT Oxygen Saturation - - Inhaled Oxygen Concentration - - Weight 109 kg (241 lb 2.9 oz) 07/17/2017 3:26 PM CDT Height 188 cm (6' 2.02) 07/17/2017 3:29 PM CDT Body Mass Index 30.95 07/17/2017 3:26 PM CDT documented in this encounter Medications [...] documented as of this encounter Progress Notes Piero Alejandro M.D. - 07/17/2017 2:20 PM CDT FM-AD CHIEF COMPLAINT/ REASON FOR VISIT Diabetic review. HISTORY OF PRESENT ILLNESS Jonnathan is a 72 year old male who presents to the clinic today for diabetic and medication review. [facility] He comes in periodically to catch us up. He has been checking his blood sugars occasionally. He has been active and trying to maintain a healthy diet.He was also previously taking his blood sugars at different times and not before his meals. He is working on taking his insulin correctly. The patient denies any additional questions or concerns at this time. MEDICATIONS Post-visit Medication Reconciliation Reviewed and are as outlined in the EMR dated 07/17/2017. ALLERGIES Penicillin. Sulfa drugs. Doxycycline causes severe rash. SYSTEMS REVIEW Please see HPI for pertinent positives, otherwise rest of ROS negative. PAST MEDICAL/SURGICAL HISTORY 1. Benign prostatic hypertrophy. 2. 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 3. Hypertension. 4. Hypercholesterolemia. 5. Erectile dysfunction. 6. Pulmonary symptomatology, diagnosis [place] [facility] unclear, but probably some degree of COPD. 7. Status post left cataract surgery at the [facility]. 8. Tonsillectomy. 9. Obstructive sleep apnea, prescribed CPAP therapy but is currently not using. 10. 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 Bernal. 11. Asthma. 12. Greenlight photoselective vaporization of the prostate and cystoscopy with bladder biopsy and fulguration of a 2cm area; 08/28/[address] Prasanna Bernal at the [facility]. PREVENTIVE SERVICES Tobacco use: none, former smoker (quit in 1982). VITAL SIGNS HEIGHT: 188 cm. WEIGHT: 109.4 kg. BMI: 30.95 kg/m2. TEMP: 36.7 Deg C. PULSE: 80 /min. RESP: 20 /min. SYSTOLIC: 148 mmHg, 140 mmHg. DIASTOLIC: 78 mmHg, 70 mmHg. PHYSICAL EXAMINATION GENERAL: Patient is alert and oriented times three, in no acute distress, good hygiene and is dressed appropriately. ENT: Tympanic membranes are normal bilaterally. Oropharynx is without erythema or exudate. Nasal mucosa is without injection. Neck is without adenopathy. LYMPH NODES: Not palpably enlarged and no nodules are palpated. HEART: Regular rate and rhythm without murmur. LUNGS: Clear to auscultation. EXTREMITIES: Within normal limits. For foot exam, please see quality measures. IMPRESSION/REPORT/PLAN 1. Essential hypertension, in the setting of diabetes. He will check his blood pressures at home andsend these readings to me. 2. Diabetes mellitus type 2, uncontrolled with most recent Hgb A1c of 8.5%. He will closely monitor his blood sugars, work on dietary control and work with his team [facility]. He will update me with any changes to his regimen. 3. Follow up: The patient will contact the clinic with any new or worsening symptoms. This document serves as a record of services personally performed by Piero Roy MD. It was created on their behalf by Karen Givens, a trained medical appliance maker. The creation of this record is based on the scribe's personal observations and the provider's statements to them. This document has been ch ecked and approved by the attending provider. Piero Hinton M.D./ Electronically Signed By: PIERO ROJAS MD On: 07/22/2017 10:24 PM Source: [facility] MHSDOLBEYNONRADSYS Document Id: [id number] documented in this encounter Miscellaneous Notes Miscellaneous - Piero Alejandro M.D. - 07/22/2017 12:44 PM CDT Quality Measures Quality Measures Entered On: 07/22/2017 12:45 CDT Performed On: 07/22/2017 12:44 CDT by PIERO ROJAS MD Diabetes Date of Last Foot Exam : 07/17/2017 CDT Date of Last Diabetes Education : 07/17/2017 CDT PIERO ROJAS MD - 07/22/2017 12:44 CDT Foot Exam Grid Left foot exam Right foot exam Dorsalis Pedis Pulse : Normal Normal Post Tibial Pulse : Diminished Diminished Capillary Refill : Less than 3 seconds Less than 3 seconds PIERO ROJAS MD - 07/22/2017 12:44 CDT PIERO ROJAS MD - 07/22/2017 12:44 CDT Source: [facility] POWERCHART Document Id: [id number] CDT!13 Miscellaneous - Marti Hamilton, L.P.N. - 07/17/2017 3:29 PM CDT Ambulatory Vitals Height Weight Ambulatory Vitals Height Weight Entered On: 07/17/2017 15:31 CDT Performed On: 07/17/2017 15:29 CDT by MARTI HAMILTON LPN Vitals/Ht/Wt Systolic Blood Pressure : 140 mmHg Diastolic Blood Pressure : 70 mmHg NIBP Mean : 93 mmHg BP Location : Left upper extremity Blood Pressure Cuff Size : Regular Height : 188 cm(Converted to: 6 ft 2 inch(es), 74 inch(es)) MARTI HAMILTON LPN - 07/17/2017 15:29 CDT Source: [employer] Document Id: [id number] CDT!8 Miscellaneous - Marti Hamilton L.P.N. - 07/17/2017 3:27 PM CDT Health Assessment Health Assessment Entered On: 07/17/2017 15:28 CDT Performed On: 07/17/2017 15:27 CDT by MARTI HAMILTON LPN Health Assessment Complete Health Assessment Complete or Modified : Annual Health Assessment Annual Health Assessment Completed : Yes MARTI HAMILTON LPN - 07/17/2017 15:27 CDT Nutrition Nutrition Risk Factors by History Adult : None MARTI HAMILTON LPN - 07/17/2017 15:27 CDT Functional Living Situation : Home independently Current Daily Living Assistance : None MARTI HAMILTON LPN - 07/17/2017 15:27 CDT Dependent Habits Exposure to Tobacco Smoke : Other: quit in 1982 Smoking Status : Former smoker Tobacco 2A : Yes Tobacco Use/Currently Using : No Tobacco Use/Last 30 Days : No Tobacco Use/Last 12 months : No Tobacco Last Use/Year : 1982 Alcohol Use : No MARTI HAMILTON LPN - 07/17/2017 15:27 CDT Caffeine Use Grid Caffeine Use : Current Type : Chocolate, Coffee, Soft drinks Frequency : Daily MARTI HAMILTON LPN - 07/17/2017 15:27 CDT Recreational Drug Use Grid Drug Use : None MARTI HAMILTON LPN - 07/17/2017 15:27 CDT Psychosocial Domestic Abuse Concerns : None Behavioral Health Screen/Safety Assmt : No Mormonism Preference : Unknown MARTI HAMILTON LPN - 07/17/2017 15:27 CDT Advance Directive Advanced Directives : No Advance Directive Additional Information : No MARTI HAMILTON LPN - 07/17/2017 15:27 CDT Educ Needs Learning Style Preference Adult Grid Patient : Demonstration, Printed materials, Verbal explanation Family : None MARTI HAMILTON LPN - 07/17/2017 15:27 CDT [facility] Document Id: [id number] CDT!37 Miscellaneous - Marti Hamilton L.P.N. - 07/17/2017 3:26 PM CDT Adult Shellfish Checker Intake/History Adult Shellfish Checker Intake/History Entered On: 07/17/2017 15:27 CDT Performed On: 07/17/2017 15:26 CDT by MARTI HAMILTON LPN Intake Chief Complaint : diabetic check up Temperature Core : 36.7 DegC(Converted to: 98.1 DegF) Peripheral Pulse Rate : 80 /min Respiratory Rate : 20 /min Systolic Blood Pressure : 148 mmHg (HI) Diastolic Blood Pressure : 78 mmHg NIBP Mean : 101 mmHg BP Location : Left upper extremity Blood Pressure Cuff Size : Regular Height : 188 cm(Converted to: 6 ft 2 inch(es), 74 inch(es)) Actual Weight : 109.40 kg(Converted to: 241 lb 3 oz) Weight Source : Standing scale Dosing Weight Clinic : 109.4 kg Prosthetic device on during patient weight : No Clinic BSA : 2.39 Body Mass Index : 30.95 kg/m2 MARTI HAMILTON LPN - 07/17/2017 15:26 CDT General Info Information Given By : Patient Preferred Communication Mode : Verbal Languages : Romanian Is Patient Female and 13-50 no hysterectomy : No MARTI HAMILTON LPN - 07/17/2017 15:26 CDT Subjective Pain Symptoms : No MARTI HAMILTON LPN - 07/17/2017 15:26 CDT Dependent Habits Exposure to Tobacco Smoke : Other: quit in 1982 Smoking Status : Former smoker Tobacco 2A : Yes Tobacco Use/Currently Using : No Tobacco Use/Last 30 Days : No Tobacco Use/Last 12 months : No Tobacco Last Use/Year : 1982 MARTI HAMILTON FORESTRY PILOT - 07/17/2017 15:26 CDT Caffeine Use Grid Caffeine Use : Current Type : Chocolate, Coffee, Soft drinks Frequency : Daily MARTI HAMILTON LPN - 07/17/2017 15:26 CDT Recreational Drug Use Grid Drug Use : None MARTI HAMILTON FORESTRY PILOT - 07/17/2017 15:26 CDT Source: [employer] Document Id: [id number] CDT!41 documented in this encounter Plan of Treatment Not on filedocumented as of this encounter Visit Diagnoses Not on filedocumented in this encounter Additional Health Concerns Assessment Noted Time PHQ-9 Depression Total Score: 6 01/31/2015 12:28 PM CD T documented as of this encounter Care Teams Insurance Inspector Relationship Specialty Start Date End Date Piero Alejandro M.D. PCP - General 03/13/17 01/09/[address] [place] [phone] documented as of this encounter
--- OUTSIDE RECORDS SUMMARY | 2022-05-21 11:36 | XMS_ITS | Encounter Summary ---
:1945 Author Organization [facility] Address [address] [place] [address] Care Team Providers Name Role Phone Unavailable Primary Care Provider Unavailable Encounter Details Date Type Department Care Team Description 02/06/2017 Hospital Encounter HX [facility] Ailyn Bernal M.D. [address] [place] [phone] (Wo rk) Social History Tobacco [...] do you attend caodaism or Never 2021 judaism services? Do you [...] Sign Reading Time Taken Comments Blood Pressure 135/82 02/06/2017 10:01 AM CDT Pulse 89 02/06/2017 10:01 AM CDT Temperature - - Respiratory Rate 20 02/06/2017 10:01 AM CDT Oxygen Saturation - - Inhaled [...] mouth daily. documented as of this encounter Procedure Notes Ailyn Bernal M.D. - 02/06/2017 10:38 AM CDT CYSTO CHIEF COMPLAINT / REASON FOR VISIT CYSTOSCOPY REPORT INDICATION Bladder cancer. This is a 71-year-old male who had a transurethral resection of a bladder tumor located on the right lateral wall on May 22, 2016. 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 On August 28, 2016 he underwent his initial postoperative evaluation and simultaneous GreenLight photoselective vaporization of the prostate. At this time he is doing welland has no complaints. INSTRUMENT Flexible cystoscope. ANESTHESIA 2% aqueous lidocaine jelly introduced into the urethra. PROCEDURE During this procedure the universal protocol [...] The cystoscope was advanced into the urethra. FINDINGS Meatus: Normal. Urethra: No strictures noted. Bulbous urethra and membranous urethra are normal. Prostate: Length: 4 cm. Lateral lobes: Well resected with minimal apical tissue present. A small amount of necrotic debris is still present and waiting to slough off - near the bladder neck. Middle lobe: Absent. Bladder neck: Unremarkable. Bladder: Residual urine: Minimal. Ureteral orifices: Singular bilaterally, normal position on the trigone, slit- like in configurationand with clear efflux of urine noted bilaterally. Trabeculation: Mild. Foreign bodies: No evidence of stones, tumors, exophytic lesions or other foreign bodies. COMMENTS The procedure was well tolerated by the patient. He was discharged from the office in satisfactory condition. Post-cystoscopy instructions were reviewed with him. IMPRESSION / REPORT / PLAN 1. History of bladder cancer, no cystoscopic evidence of recurrent disease 2. Benign prostatic hypertrophy, improved following GreenLight photoselective vaporization of the prostate. PLAN: An aliquot of urine was obtained and will be sent for cytology and tests. Return to clinic in 3 months for repeat cystoscopy and bladder cancer surveillance. Electronically Signed By: AILYN BERNAL MD On: 02/06/2017 10:39 AM Source: [facility] Document Id: [id number] documented in this encounter Miscellaneous Notes Miscellaneous - Raegan Toney APRN, R.N. - 02/12/2017 5:07 PM CDT Results Notification Document Contains Addenda Addendum by RODERICK THOMAS LPN on February 13, 2017 09:26:07 CDT Patient was informed of normal results. From: RAEGAN TONEY APRN RN To: Urology Nurse; Sent: 02/12/2017 17:07:46 CDT ! Show up: 02/12/2017 17:07:46 CDT Subject: Results Notification Actions: Notify patient of results Reminder Comments: FISH is negative Results: Date Result Name Value 02/06/2017 10:17 FUROC Result Sum-[facility] Negative 02/06/2017 10:17 FUROC Result-[facility] See Comment 02/06/2017 10:17 FUROC Interp-[facility] See Comment 02/06/2017 10:17 FUROC Reason for Ref-[facility] See Comment 02/06/2017 10:17 FUROC Spec-[facility] Varies 02/06/2017 10:17 FUROC Source-[facility] Urine, NOS 02/06/2017 10:17 FUROC Released By-[facility] BEATRIZ GALLEGO [facility] Document Id: [id number] Electronically signed by Conversion, [facility] Para Professional [id number] at 03/11/2017 4:53 AM CDT Miscellaneous - Raegan Toney APRN, R.N. - 02/07/2017 1:04 PM CDT Results Notification Document Contains Addenda Addendum by RODERICK THOMAS LPN on February 12, 2017 09:55:40 CDT Patient's schedule with dental receptionist to have patient leave a urine sample at the [facility]. Addendum by RODERICK THOMAS LPN on February 11, 2017 16:57:42 CDT Unable to leave voicemail message full. Addendum by RODERICK THOMAS LPN on February 07, 2017 15:14:03 CDT Orders placed. Addendum by RODERICK THOMAS LPN on February 07, 2017 15:13:11 CDT Unable to leave message voicemail full. From: RAEGAN TONEY APRN RN To: Urology Nurse; Sent: 02/07/2017 13:04:23 CDT ! Show up: 02/07/2017 13:04:23 CDT Subject: Results Notification Actions: Notify patient of results Reminder Comments: Cyto is atypical, repeat test in two weeks. Please place order. Results: Date Result Type Result Name 02/07/2017 12:24 Document - DOC Non-CONDUIT HELPER Cytology Source: [employer] Document Id: [id number] Electronically signed by Conversion, [facility] Para Professional [id number] at 03/11/2017 4:53 AM CDT Miscellaneous - Ailyn Bernal M.D. - 02/06/2017 10:38 AM CDT Ambulatory Patient Summary [facility] [address] [place] [phone] Visit Information Name: BETH COSTA [facility] Number: [id number] Current Date: 02/06/2017 10:38:06 Physicians Attending Provider: AILYN BERNAL MD Primary Care Provider: PIERO ROJAS MD BETH [...] tablet) 1 Tablet(s), Oral, once a day *doxazosin (doxazosin 4 mg oral tablet) 1 Tablet(s), Oral, once a day (at bedtime) *finasteride (finasteride 5 mg oral tablet) 1 Tablet(s), [...] Oral, two times a day with meals * You have let us know that you are not taking this medication as listed. Please talk with your primary care provider or the health care provider who prescribed the medication as soon as possible. Stop Taking the Following Medications: Medication list as of 02-06-17 10:38 Attention: If you have any medications at [...] Electronically Signed By: AILYN BERNAL MD Signed On:06-FEB-2017 10:38:02 Your Allergies & Intolerances Substance Reaction Symptoms Category Comments doxycycline severe rash Drug penicillin Drug sulfa drugs Drug Your Problem List Problem Status Onset Comments Diabetes mellitus type II Active 11/05/1996 DM Type2 Neuropathy Active 08/24/2008 Hypertension Active Hypercholesterolemia* Active Cancer Bladder Lateral Wall Active Hyperplasia Prostate (BPH) Localized With Obstruction Active Cancer Bladder Pers Hx Active Your Upcoming Appointments Date Time Location Provider No Appointments found Attention: Contact your local Clinic if further [...] if you dont have one. Go to [email or web address] and click on Create Your Account. Then, follow the directions to complete the online form. Youll be asked for your [facility] number which you can find at the top of this document. Your Goals/Additional instructions: Source: [facility] POWERCHART Document Id: [id number] Miscellaneous - Ailyn Bernal M.D. - 02/06/2017 10:38 AM CDT Ambulatory Discharge Medication List [facility] [address] [place] [phone] Visit Information Name: BETH COSTA [facility] Number: [id number] Current Date: 02/06/2017 10:38:05 Attending Provider: AILYN BERNAL MD Primary Care Provider: PIERO ROJAS MD BETH [...] tablet) 1 Tablet(s), Oral, once a day *doxazosin (doxazosin 4 mg oral tablet) 1 Tablet(s), Oral, once a day (at bedtime) *finasteride (finasteride 5 mg oral tablet) 1 Tablet(s), [...] Oral, two times a day with meals * You have let us know that you are not taking this medication as listed. Please talk with your primary care provider or the health care provider who prescribed the medication as soon as possible. Stop Taking the Following Medications: Medication list as of 02-06-17 10:38 Attention: If you have any medications at [...] Electronically Signed By: AILYN BERNAL MD Signed On:06-FEB-2017 10:38:02 Additional Information: Source: [facility] POWERCHART Document Id: [id number] Miscellaneous - Janes Umanzor L.P.N. - 02/06/2017 10:01 AM CDT Adult Blind Stitch Machine Operator Intake/History Adult Blind Stitch Machine Operator Intake/History Entered On: 02/06/2017 10:04 CDT Performed On: 02/06/2017 10:01 CDT by JANES UMANZOR LPN Intake Chief Complaint : 3 month cysto -No concerns Temperature Core : 37.2 DegC(Converted to: 99.0 DegF) Peripheral Pulse Rate : 89 /min Respiratory Rate : 20 /min Systolic Blood Pressure : 135 mmHg Diastolic Blood Pressure : 82 mmHg NIBP Mean : 100 mmHg Oxygen Therapy : Room air JANES UMANZOR LPN - 02/06/2017 10:01 CDT General Info Information Given By : Patient Preferred Communication Mode : Verbal Languages : Finnish Is Patient Female and 13-50 no hysterectomy : JANES Chamberlain LPN - 02/06/2017 10:01 CDT Subjective Pain Symptoms : JANES Chamberlain LPN - 02/06/2017 10:01 CDT Dependent Habits Exposure to Tobacco Smoke : Other: quit in 1982 Smoking Status : Former smoker Tobacco 2A : Yes Tobacco Use/Currently Using : No Tobacco Use/Last 30 Days : No Tobacco Use/Last 12 months : No Tobacco Last Use/Year : 1982 JANES UMANZOR LPN - 02/06/2017 10:01 CDT Caffeine Use Grid Caffeine Use : Current Type : Chocolate, Coffee, Soft drinks Frequency : Daily JANES UMANZOR LPN - 02/06/2017 10:01 CDT Recreational Drug Use Grid Drug Use : None JANES UMANZOR LPN - 02/06/2017 10:01 CDT Source: [facility] POWERCHART Document Id: [id number] CDT!33 documented in this encounter Plan of Treatment Not on filedocumented as of this encounter Procedures Procedure Name Priority Date/Time Associated Comments Diagnosis UROVYSION (R) FOR Routine 02/06/2017 10:17 Result s for this BLADDER CANCER AM CDT procedure are in the results section. ZZPATHOLOGY NON-CONDUIT HELPER Routine 02/06/2017 9:55 AM Re sults for this CYTOLOGY CDT procedure are i n the results section. documented in this encounter Results UroVysion for Detection of Bladder Cancer, Urine (02/06/2017 10:17 AM CDT) [facility] Method Time Signature HXFUROC Result Negative POWERCHART [facility] HXFUROC See Comment POWERCHART Result-[facility] Comment: RESULT: No evidence of urotheli al carcinoma. Interpretation See Comment POWERCHART Comment: This test result does not rule out the p ossibility that the patient may have a low-grade (i.e. grade 1 or 2) non-invasive papillary urothelial carcin dale. Some patients with low grade non-invasive papillary ur othelial carcinoma do not have abnormalities with this FISH test. ADDITIONAL INFORMATIO N Fluorescence in situ hybridization (FISH ) with centromere probes for chromosomes 3 (D3Z1), 7(D7Z1) , 17(D17Z1), and a locus specific probe for 9p21. This test has been modified from the rachel blunt's instructions. Its performance characteri stics were determined by [facility] in a manner co nsistent with CLIA requirements. This test has not been fernando ared or approved by the U.S. Food and Drug Administration. Reason For Referral See Comment POWERCHA RT Comment: RESULT: Evaluate for urothelial carcinoma. HXFUROC Spec-[facility] Varies POWERCHART HXFUROC Source-[facility] Urine, NOS POWERCHAR T HXFUROC Released By-[facility] BEAT[employer]Z WALLER ERCHART Comment: Test Performed by: [facility] - [address] [address] Specimen (Source) Anatomical Collection Method Collection Time Re ceived Time Location / / Volume Laterality Urine 02/06/2017 10:17 AM CDT iAlyn Bernal M.D. LAB GENETIC TESTING Performing Organization Address City/State/ZIP Code Phon e Number POWERCHART ZZPATHOLOGY NON-CONDUIT HELPER CYTOLOGY (02/06/2017 9:55 AM CDT) Specimen (Source) Anatomical Collection Method Collection Time Re ceived Time Location / / Volume Laterality 02/06/2017 9:55 AM CDT Narrative [facility] - 02/07/2017 12:24 PM CDT [facility] [place] [address] [place] [address] ??[phone] Patient Name: BETH COSTA Patient ID #: [id number] Collected: 02/06/2017 Address: [facility]/Zip: [id number] [place] [address] ??[id number] Received: Reported: 02/07/2017 02/07/2017 Soc. Sec. #: ?/Age/Sex 1945 (Age: 71) ??M Physician(s): Juana BERNAL MD Copy To: ? [facility] ?? [id number] [address] [facility] ??[address] CYTOPATHOLOGY NON-CONDUIT HELPER REPORT FINAL CYTOLOGIC DIAGNOSIS Urine-CATHETERIZED OR POST INSTRUMENTATI ON: DIAGNOSIS ATYPICAL UROTHELIAL CELLS. SATISFACTORY SPECIMEN FOR EVALUATION. THIS CASE WAS REVIEWED WITH DR. CONNER PRYOR. Electronically Signed By mpg/02/07/2017 MD TESSA SOLORIO(ASCP) SPECIMEN(S) RECEIVED: Urine-CATHETERIZED OR POST INSTRUMENTATI ON CLINICAL HISTORY: HISTORY OF BLADDER CANCER GROSS DESCRIPTION: 2 CYTOSPINS PREPARED FROM 15 ML ALCOHOL FIXED, CLEAR YELLOW FLUID. Ailyn Bernal M.D. LAB PATHOLOGY/CYTOLOGY ORDER ELISHA Performing Organization Address City/State/ZIP Code Phon e Number [facility] documented in this encounter Visit Diagnoses Not on filedocumented in this encounter Additional Health Concerns Assessment Noted Time PHQ-9 Depression Total Score: 6 01/31/2015 12:28 PM CD T documented as of this encounter
--- OUTSIDE RECORDS SUMMARY | 2022-05-21 11:36 | XMS_ITS | Encounter Summary ---
:1945 Author Organization [facility] Address [address] [place] [address] Care Team Providers Name Role Phone Unavailable Primary Care Provider Unavailable Encounter Details Date Type Department Care Team Description 02/27/2017 Hospital Encounter [facility]X [facility] Ewa Grier M.D. [address] [place], [place] [phone] (Wo rk) Social History [...] do you attend pentecostalism or Never 2021 synagogue services? Do you [...] Procedure Name Priority Date/Time Associated Comments Diagnosis PROSTATE-SPECIFIC AG Routine 02/27/2017 7:47 Resu lts for this (PSA) SCRN, S AM CDT procedure are in the results section. ASPARTATE Routine 02/27/2017 7:47 Results for this AMINOTRANSFERASE (AST), AM CDT proc edure are in S/P the results section. THYROID-STIMULATING Routine 02/27/2017 7:47 Resul ts for this HORMONE-SENSITIVE AM CDT procedure are in (S-TSH) the results section. HEMOGLOBIN A1C, B Routine 02/27/2017 7:47 Results for this AM CDT procedure are i n the results section. documented in this encounter Results (ABNORMAL) S-TSH (Thyroid-Stimulating Hormone - Sensitive) (02/27/2017 7:47 AM CDT) P athologist Signature TSH 5.20 (H) 0.27 - POWERCHART (Thyrotropin) 4.20 MIUL Comment: Biotin has been identified by the capri enriquez as a potential interfering substance. Higher concentrations of biotin may be found in multivitamins, hair/nail supplements, and workout supplements. If the result does not match clinical observat ions, repeat testing after patient refrains from the use of supplements for at least 12 hours. Specimen (Source) Anatomical Collection Method Collection Time Re ceived Time Location / / Volume Laterality Blood 02/27/2017 7:47 AM CDT Ewa Vargaszinski M.D. LAB BLOOD ADD-ON Performing Organization Address City/State/ZIP Code Phon e Number POWERCHART PSA (Prostate-Specific Antigen) Screen (02/27/2017 7:47 AM CDT) P athologist Signature Prostate-Specif 1.3 0.0 - 6.5 POWERCHART ic Ag NGML Comment: Biotin has been identified [facility] the [facility] as a potential interfering substance. Higher concentrations of biotin may be found in multivitamins, hair/nail supplements, and workout supplements. If the result does no match clinical observati ons, repeat testing after patient refrains from the use of supplements for at least 12 hours. This testing method is an electrochemilu minescence assay manufactured by [employer] and performed on the Tariq system. Values obtained with different assay met hods or kits may be different and cannot be used interchangeably. Test results cannot be interpreted as ab solute evidence for the presence or absence of malignant disease. Specimen (Source) Anatomical Collection Method Collection Time Re ceived Time Location / / Volume Laterality Blood 02/27/2017 7:47 AM CDT Ewa Alejandro M.D. LAB BLOOD ADD-ON Performing Organization Address City/State/ZIP Code Phon e Number POWERCHART AST (Aspartate Aminotransferase) (02/27/2017 7:47 AM CDT) [facility] gist Method Time Signature Aspartate 23 8 - 48 POWERCHART Aminotransferase UNITL (AST), S Specimen (Source) Anatomical Collection Method Collection Time Re ceived Time Location / / Volume Laterality Blood 02/27/2017 7:47 AM CDT Ewa Alejandro M.D. LAB BLOOD ADD-ON Performing Organization Address City/State/ZIP Code Phon e Number POWERCHART (ABNORMAL) Hemoglobin A1c (02/27/2017 7:47 AM CDT) P athologist Signature Hemoglobin A1c, 8.4 (H) <=5.6 A1C POWERCHART B Specimen (Source) Anatomical Collection Method Collection Time Re ceived Time Location / / Volume Laterality Blood 02/27/2017 7:47 AM CDT Authorizing Provider Result Deloris Alejandro M.D. LAB BLOOD ADD-ON Performing Organization Address City/State/ZIP Code Phon e Number POWERCHART documented in this encounter Visit Diagnoses Not on filedocumented in this encounter Additional Health Concerns Assessment Noted Time PHQ-9 Depression Total Score: 6 01/31/2015 12:28 PM CD T documented as of this encounter
--- OUTSIDE RECORDS SUMMARY | 2022-05-21 11:36 | XMS_ITS | Encounter Summary ---
:1945 Author Organization [facility] Address [address] [place] [address] Care Team Providers Name Role Phone Piero Alejandro M.D. Primary Care Provider [phone] Encounter Details Date Type Department Care Team Description 07/04/2017 Hospital Encounter [facility]X [facility] Piero Grier M.D. [address] [place], [place] [phone] (Wo rk) Social History [...] do you attend rastafari or Never 2021 christian services? Do you [...] of this encounter Miscellaneous Notes Miscellaneous - Kirill-Piero Hinton M.D. - 2017 5:00 PM CDT Addendum by NANO MILES on July 08, 2017 16:03:35 CDT From: NANO MILES ([facility] Development Engineer) To: [facility] Nurse; Sent: 07/08/2017 16:03:35 CDT Subject: RE: Addendum by NANO MILES on July 08, 2017 16:03:25 CDT Patient is scheduled at 2:30 on July 17. Addendum by KYLIE NINO LPN on July 07, 2017 11:05:07 CDT From: KYLIE NINO LPN ([facility] Nurse) To: [facility] Development Engineer; Sent: 07/07/2017 11:05:07 CDT Subject: FW: From: PIERO ROJAS MD To: [facility] Nurse; Sent: 2017 17:00:49 CDT Have S imon follow up and bring a list of blood sugars with him. Source: [facility] POWERCHART Document Id: [id number] documented in this encounter Plan of Treatment Not on filedocumented as of this encounter Procedures Procedure Name Priority Date/Time Associated Diagnosis Comme nts ALBUMIN, RANDOM, U Routine 07/04/2017 8:09 AM Res ults for this CDT procedure are i n the results section. documented in this encounter Results (ABNORMAL) Microalbumin, Random, Urine (07/04/2017 8:09 AM CDT) P athologist Signature Creatinine, 122 40 - 278 POWERCHART Random, U MGDL HXU Albumin % 268.3 MGL POWERCHART Albumin/Creati 219 (H) 0 - 17 MGG POWERCHART nine Ratio Specimen (Source) Anatomical Collection Method Collection Time Re ceived Time Location / / Volume Laterality Urine 07/04/2017 8:09 AM CDT Piero Alejandro M.D. LAB URINE ORDERABLES Performing Organization Address City/State/ZIP Code Phon e Number POWERCHART POWERCHART NA documented in this encounter Visit Diagnoses Not on filedocumented in this encounter Additional Health Concerns Assessment Noted Time PHQ-9 Depression Total Score: 6 01/31/2015 12:28 PM CD T documented as of this encounter Care Teams Online Media Director Relationship Specialty Start Date End Date Piero Alejandro M.D. PCP - General 03/13/17 01/09/20 [address], [place] [address] documented as of this encounter
--- OUTSIDE RECORDS SUMMARY | 2022-05-21 11:36 | XMS_ITS | Encounter Summary ---
:1945 Author Organization [facility] Address [address] [place] [address] Care Team Providers Name Role Phone Ewa Alejandro M.D. Primary Care Provider [phone] Encounter Details Date Type Department Care Team Description 05/08/2017 Hospital Encounter [facility]X [facility] Ailyn Bernal M.D. [address] [place] [phone] (Wo rk) Social History Tobacco [...] do you attend temple or Never 2021 buddhism services? Do you [...] encounter Procedure Notes Ailyn Bernal M.D. - 05/08/2017 9:36 AM CDT CYSTO CHIEF COMPLAINT / REASON [...] Electronically Signed By: AILYN BERNAL MD On: 05/08/2017 09:37 AM Source: [facility] Dctio Document Id: [id number] documented in this encounter Miscellaneous Notes Miscellaneous - Ailyn Bernal M.D. - 05/19/2017 7:56 AM CDT Results Notification Document Contains Addenda Addendum by YU THOMAS LPN on May 19, 2017 09:21:47 CDT Patient was informed of normal results. From: AILYN BERNAL MD To: Urology Nurse; Sent: 05/19/2017 07:56:00 CDT ! Show up: 05/19/2017 07:56:00 CDT Subject: Results Notification Actions: Notify patient of results Reminder Comments: Urovysion??? fluorescence in situ hybridization (FISH or FUROC) is negative Results: Date Result Name Value 05/08/2017 09:20 FUROC Result Sum-[facility] Negative 05/08/2017 09:20 FUROC Result-[place] See Comment 05/08/2017 09:20 FUROC Interp-[facility]olph See Comment 05/08/2017 09:20 FUROC Reason for Ref-[facility]olph See Comment 05/08/2017 09:20 FUROC Spec-[place] Varies 05/08/2017 09:20 FUROC Source-[place] Urine, NOS 05/08/2017 09:20 FUROC Released By-[place] See Comment Source: [facility] Dctio Document Id: [id number] Miscellaneous - Raegan Toney APRN, RMauroN. - 05/09/2017 12:21 PM CDT Results Notification Document Contains Addenda Addendum by YU THOMAS LPN on May 19, 2017 09:21:32 CDT Patient was informed of normal results. Addendum by YU THOMAS LPN on May 09, 2017 12:53:20 CDT Fish pending. From: RAEGAN TONEY APRN, RN To: Urology Nurse; Sent: 05/09/2017 12:21:00 CDT ! Show up: 05/09/2017 12:21:00 CDT Subject: Results Notification Actions: Notify patient of results Reminder Comments: urine cyto negative Results: Date Result Type Result Name 05/09/2017 11:58 Document - DOC Non-NURSE INFECTION CONTROL Cytology Source: [facility] Dctio Document Id: [id number] Miscellaneous - Yu Thomas, L.P.N. - 05/08/2017 9:15 AM CDT Adult Telegraph Mechanic Intake/History Adult Telegraph Mechanic Intake/History Entered On: 05/08/2017 9:19 CDT Performed On: 05/08/2017 9:15 CDT by YU THOMAS LPN Intake Chief Complaint : recheck cystoscopy-history of bladder cancer no blood in urine, some urgency, frequency at night and no signs of infection Temperature Core : 36.2 DegC(Converted to: 97.2 DegF) (LOW) Peripheral Pulse Rate : 86 /min Systolic Blood Pressure : 126 mmHg Diastolic Blood Pressure : 76 mmHg NIBP Mean : 93 mmHg BP Location : Right upper extremity Blood Pressure Cuff Size : Regular YU THOMAS [facility] - 05/08/2017 9:15 CDT General Info Information Given By : Patient Preferred Communication Mode : Verbal Languages : Sri Lankan Is Patient Female and 13-50 no hysterectomy : No YU THOMAS [facility] - 05/08/2017 9:15 CDT Subjective Pain Symptoms : No YU THOMAS [facility] - 05/08/2017 9:15 CDT Dependent Habits Exposure to Tobacco Smoke : Other: quit in 1982 Smoking Status : Former smoker Tobacco 2A : Yes Tobacco Use/Currently Using : No Tobacco Use/Last 30 Days : No Tobacco Use/Last 12 months : No Tobacco Last Use/Year : 1982 Alcohol Use : No YU THOMAS [facility] 05/08/2017 9:15 CDT Caffeine Use Grid Caffeine Use : Current Type : Chocolate, Coffee, Soft drinks Frequency : Daily YU THOMAS [facility] - 05/08/2017 9:15 CDT Recreational Drug Use Grid Drug Use : None YU THOMAS [facility] 05/08/2017 9:15 CDT [facility] Document Id: [id number] CDT!34 documented in this encounter Plan of Treatment Not on filedocumented as of this encounter Procedures Procedure Name Priority Date/Time Associated Comments Diagnosis UROVYSION (R) FOR Routine 05/08/2017 9:20 AM Resu lts for this BLADDER CANCER CDT procedure are in the results section. ZZPATHOLOGY NON-NURSE INFECTION CONTROL Routine 05/08/2017 8:52 AM Re sults for this CYTOLOGY CDT procedure are i n the results section. documented in this encounter Results UroVysion for Detection of Bladder Cancer, Urine (05/08/2017 9:20 AM CDT) [facility] Method Time Signature HXFUROC Result Negative POWERCHART [facility] HXFUROC See Comment POWERCHART Result-[place] Comment: RESULT: No evidence of urotheli al [...] This test has been modified from the chataignier ufacturer's instructions. Its performance characteri stics were determined by [facility] in a manner co nsistent with CLIA requirements. This test has not been fernando ared or approved by the U.S. Food and Drug Administration. HX FUROC Reason for Ref See Comment GOLD CANDELARIO Comment: RESULT: Evaluate for urothelial carcinoma. HXFUROC Spec-[place] Varies POWERCHART HXFUROC Source-[place] Urine, NOS POWERCHAR T HXFUROC Released By-[place] See Comment CHRISTIN JEFFRIES Comment: RESULT: Dhiraj Hammer M.D. Test Performed by: [facility] - [address] [address] Specimen (Source) Anatomical Collection Method Collection Time Re ceived Time Location / / Volume Laterality Urine 05/08/2017 9:20 AM CDT Ailyn Bernal M.D. LAB GENETIC TESTING Performing Organization Address City/State/ZIP Code Phon e Number POWERCHART POWERCHART NA Zzpathology Non-Opal Polisher Cytology (05/08/2017 8:52 AM CDT) Specimen (Source) Anatomical Collection Method Collection Time Re ceived Time Location / / Volume Laterality 05/08/2017 8:52 AM CDT Narrative LCM LAB - 05/09/2017 11:58 AM CDT [facility] [address] [place], [place] ??[phone] Patient Name: BETH COSTA Patient ID #: [id number] Collected: 05/08/2017 Address: [facility]/Zip: [address] [place], [place] ??[id number] Received: Reported: 05/09/2017 05/09/2017 Soc. Sec. #: ?/Age/Sex 1945 (Age: 71) ??M Physician(s): Juana BERNAL MD Copy To: ? [facility] ?? [id number] [address] [place] [address]. [facility], ??[place] ??[address] CYTOPATHOLOGY NON-NURSE INFECTION CONTROL REPORT FINAL CYTOLOGIC DIAGNOSIS Urine: NEGATIVE FOR HIGH-GRADE UROTHELIAL CARCINOMA SATISFACTORY SPECIMEN FOR EVALUATION. Electronically Signed By 05/09/2017 JOSE A PADRON M.D. Gold CT(ASCP) SPECIMEN(S) RECEIVED: Urine CLINICAL HISTORY: GROSS DESCRIPTION: 2 CYTOSPINS PREPARED FROM 40 ML LIGHT YE LLOW FLUID IN 50% ALCOHOL. Ailyn Bernal M.D. LAB PATHOLOGY/CYTOLOGY ORDER ELISHA Performing Organization Address City/State/ZIP Code Phon e Number L[facility] LAB documented in this encounter Visit Diagnoses Not on filedocumented in this encounter Additional Health Concerns Assessment Noted Time PHQ-9 Depression Total Score: 6 01/31/2015 12:28 PM CD T documented as of this encounter Care Teams Collective Bargaining Specialist Relationship Specialty Start Date End Date Ewa Alejandro M.D. PCP - General 03/13/17 01/09/[address] [phone] documented as of this encounter
--- OUTSIDE RECORDS SUMMARY | 2022-05-21 11:36 | XMS_ITS | Encounter Summary ---
:1945 Author Organization [facility] Address [address] [place] [address] Care Team Providers Name Role Phone Unavailable Primary Care Provider Unavailable Encounter Details Date Type Department Care Team Description 11/07/2016 Hospital Encounter HX [facility] Ailyn Bernal M.D. [address] [place] [address] (Wo rk) Social History Tobacco [...] do you attend judaism or Never 2021 sikhism services? Do you [...] Sign Reading Time Taken Comments Blood Pressure 148/70 11/07/2016 9:46 AM ENERGY MANAGEMENT SPECIALIST Pulse 72 11/07/2016 9:46 AM ENERGY MANAGEMENT SPECIALIST Temperature - - Respiratory Rate 20 11/07/2016 9:46 AM ENERGY MANAGEMENT SPECIALIST Oxygen Saturation - - Inhaled Oxygen Concentration [...] encounter Procedure Notes Ailyn Bernal M.D. - 11/07/2016 10:16 AM CST CYSTO CHIEF COMPLAINT / REASON FOR VISIT [...] resected with minimal apical tissue present. A fair amount of necrotic debris is still present and waiting to slough off . Middle lobe: Absent. Bladder neck: Unremarkable. Bladder: [...] Electronically Signed By: AILYN BERNAL MD On: 11/07/2016 10:19 AM Source: [facility] Document Id: [id number] GY MANAGEMENT SPECIALIST documented in this encounter Miscellaneous Notes Miscellaneous - Ailyn Bernal M.D. - 11/12/2016 5:07 PM CST Results Notification Document Contains Addenda Addendum by RODERICK THOMAS LPN on November 12, 2016 17:25:14 ENERGY MANAGEMENT SPECIALIST Patient was informed of normal results. From: AILYN BERNAL MD To: Urology Nurse; Sent: 11/12/2016 17:07:59 ENERGY MANAGEMENT SPECIALIST ! Show up: 11/12/2016 17:07:59 ENERGY MANAGEMENT SPECIALIST Subject: Results Notification Actions: Notify patient of results Reminder Comments: FISH is neg Results: Date Result Name Value 11/07/2016 10:38 FUROC Result Sum-[facility] Negative 11/07/2016 10:38 FUROC Result-[facility] See Comment 11/07/2016 10:38 FUROC Interp-[facility] See Comment 11/07/2016 10:38 FUROC Reason for Ref-[facility] See Comment 11/07/2016 10:38 FUROC Spec-[facility] Varies 11/07/2016 10:38 FUROC Source-[facility] Urine, NOS 11/07/2016 10:38 FUROC Released By-[facility] See Comment [facility] Document Id: [id number] Miscellaneous - Raegan Toney APRN, R.N. - 11/08/2016 4:29 PM ENERGY MANAGEMENT SPECIALIST Results Notification Document Contains Addenda Addendum by RODERICK THOMAS LPN on November 08, 2016 17:23:08 ENERGY MANAGEMENT SPECIALIST Fish pending. From: RAEGAN TONEY APRN RN To: Urology Nurse; Sent: 11/08/2016 16:29:56 ENERGY MANAGEMENT SPECIALIST ! Show up: 11/08/2016 16:29:56 ENERGY MANAGEMENT SPECIALIST Subject: Results Notification Actions: Notify patient of results Reminder Comments: cyto negative Results: Date Result Type Result Name 11/08/2016 12:59 Document - DOC Non-SHEET METAL LAY OUT WORKER Cytology Source: [facility] [email or web address] Document Id: [id number] Reji - Ailyn Bernal M.D. - 11/07/2016 10:19 AM CST Ambulatory Patient Summary [facility] [address] [place] [phone] Visit Information Name: BETH COSTA [facility] Number: [id number] Current Date: 11/07/2016 10:19:49 Physicians Attending Provider: AILYN BERNAL MD Primary [...] the Following Medications: Medication list as of 11-07-16 10:19 Attention: If you have any medications at [...] Electronically Signed By: AILYN BERNAL MD Signed On:07-NOV-2016 10:19:44 Your Allergies & Intolerances Substance Reaction Symptoms [...] if you dont have one. Go to [email or web address] and click on Create Your Account. Then, follow the directions to complete the online form. Youll be asked for your [facility] number which you can find at the top of this document. Your Goals/Additional instructions: Source: [facility] POWERCHART Document Id: [id number] GY MANAGEMENT SPECIALIST Miscellaneous - Ailyn Bernal M.D. - 11/07/2016 10:19 AM CST Ambulatory Discharge Medication List [address] [phone] Visit Information Name: BETH COSTA [facility] Number: [id number] Current Date: 11/07/2016 10:19:48 Attending Provider: AILYN BERNAL MD Primary Care [...] the Following Medications: Medication list as of 11-07-16 10:19 Attention: If you have any medications at [...] Electronically Signed By: AILYN BERNAL MD Signed On:07-NOV-2016 10:19:44 Additional Information: Source: [facility] POWERCHART Document Id: [id number] GY MANAGEMENT SPECIALIST Miscellaneous - Janes Umanzor L.PMauroNMauro - 11/07/2016 9:46 AM CST Adult Youth Associate Intake/History Adult Youth Associate Intake/History Entered On: 11/07/2016 9:49 ENERGY MANAGEMENT SPECIALIST Performed On: 11/07/2016 9:46 ENERGY MANAGEMENT SPECIALIST by JANES UMANZOR LPN Intake Chief Complaint : F/U cysto -No concerns Temperature Core : 36.2 DegC(Converted to: 97.2 DegF) (LOW) Peripheral Pulse Rate : 72 /min Respiratory Rate : 20 /min Systolic Blood Pressure : 148 mmHg (HI) Diastolic Blood Pressure : 70 mmHg NIBP Mean : 96 mmHg BP Location : Left upper extremity Blood Pressure Cuff Size : Regular Oxygen Therapy : Room air JANES UMANZOR LPN - 11/07/2016 9:46 ENERGY MANAGEMENT SPECIALIST General Info Information Given By : Patient Preferred Communication Mode : Verbal Languages : Mauritanian Is Patient Female and 13-50 no hysterectomy : No JANES UMANZOR LPN - 11/07/2016 9:46 ENERGY MANAGEMENT SPECIALIST Subjective Pain Symptoms : No JANES UMANZOR LPN - 11/07/2016 9:46 ENERGY MANAGEMENT SPECIALIST Dependent Habits Exposure to Tobacco Smoke : Other: quit in 1982 Smoking Status : Former smoker Tobacco 2A : Yes Tobacco Use/Currently Using : No Tobacco Use/Last 30 Days : No Tobacco Use/Last 12 months : No Tobacco Last Use/Year : 1982 JANES UMANZOR LPN - 11/07/2016 9:46 ENERGY MANAGEMENT SPECIALIST Caffeine Use Grid Caffeine Use : Current Type : Chocolate, Coffee, Soft drinks Frequency : Daily JANES UMANZOR LPN - 11/07/2016 9:46 ENERGY MANAGEMENT SPECIALIST Recreational Drug Use Grid Drug Use : None JANES UMANZOR LPN - 11/07/2016 9:46 ENERGY MANAGEMENT SPECIALIST Source: [facility] POWERCHART Document Id: [id number] ENERGY MANAGEMENT SPECIALIST!35 GY MANAGEMENT SPECIALIST documented in this encounter Plan of Treatment Not on filedocumented as of this encounter Procedures Procedure Name Priority Date/Time Associated Comments Diagnosis UROVYSION (R) FOR Routine 11/07/2016 10:38 Result s for this BLADDER CANCER AM ENERGY MANAGEMENT SPECIALIST procedure are in the results section. ZZPATHOLOGY NON-SHEET METAL LAY OUT WORKER Routine 11/07/2016 9:06 AM Re sults for this CYTOLOGY ENERGY MANAGEMENT SPECIALIST procedure are i n the results section. documented in this encounter Results UroVysion for Detection of Bladder Cancer, Urine (11/07/2016 10:38 AM ENERGY MANAGEMENT SPECIALIST) [facility] gist Method Time Signature HXFUROC Result Negative POWERCHART [facility] HXFUROC See Comment POWERCHART Result-[facility] Comment: RESULT: No evidence of urotheli al [...] and a locus specific probe for 9p21. Reason For Referral See Comment POWERCHA RT Comment: RESULT: Evaluate for urothelial carcinoma. HXFUROC Spec-[facility] Varies POWERCHART HXFUROC Source-[facility] Urine, NOS POWERCHAR T HXFUROC Released By-[facility] See Comment POW ERCHART Comment: RESULT: Miguelito Crowell M.D., Ph.D. Test Performed by: [facility] [place] [address] General Foundry Worker: Jesus Louis II, M.D., Ph.D. Specimen (Source) Anatomical Collection Method Collection Time Re ceived Time Location / / Volume Laterality Urine 11/07/2016 10:38 AM ENERGY MANAGEMENT SPECIALIST Ailyn Bernal M.D. LAB GENETIC TESTING Performing Organization Address City/State/ZIP Code Phon e Number POWERCHART ZZPATHOLOGY NON-SHEET METAL LAY OUT WORKER CYTOLOGY (11/07/2016 9:06 AM ENERGY MANAGEMENT SPECIALIST) Specimen (Source) Anatomical Collection Method Collection Time Re ceived Time Location / / Volume Laterality 11/07/2016 9:06 AM ENERGY MANAGEMENT SPECIALIST Narrative [facility] LAB - 11/08/2016 12:59 PM ENERGY MANAGEMENT SPECIALIST [facility] [address] [place], [place] ??[phone] Patient Name: BETH COSTA Patient ID #: [id number] Collected: 11/07/2016 Address: [facility]/State/Zip: [address] [place], [place] ??[phone] Received: Reported: 11/08/2016 11/08/2016 Soc. Sec. #: ?/Age/Sex 1945 (Age: 71) ??M Physician(s): Juana BERNAL MD Copy To: ? [facility] ?? [id number] [address] [facility], ??[place] ??[address] CYTOPATHOLOGY NON-SHEET METAL LAY OUT WORKER REPORT FINAL CYTOLOGIC DIAGNOSIS Urine-VOIDED: NEGATIVE FOR HIGH-GRADE UROTHELIAL CARCINOMA SATISFACTORY SPECIMEN FOR EVALUATION. Electronically Signed By [facility]/11/08/2016 Pato FARMER([facility]) SPECIMEN(S) RECEIVED: Urine-VOIDED CLINICAL HISTORY: HISTORY OF BLADDER CANCER GROSS DESCRIPTION: 2 CYTOSPINS PREPARED FROM 25 ML YELLOW A LCOHOL FIXED FLUID. Ailyn Bernal M.D. LAB PATHOLOGY/CYTOLOGY ORDER ELISHA Performing Organization Address City/[facility]/ZIP Code Phon e Number LCM LAB documented in this encounter Visit Diagnoses Not on filedocumented in this encounter Additional Health Concerns Assessment Noted Time PHQ-9 Depression Total Score: 6 01/31/2015 12:28 PM CD T documented as of this encounter
--- OUTSIDE RECORDS SUMMARY | 2022-05-21 11:36 | XMS_ITS | Encounter Summary ---
:1945 Author Organization [facility] Address [address] [place] [address] Care Team Providers Name Role Phone Unavailable Primary Care Provider Unavailable Encounter Details Date Type Department Care Team Description 02/27/2017 Hospital Encounter HX NO MAPPING Virginia Bernal M.D. [address] [place], [place] [phone] (Wo rk) Social History [...] do you attend yazdanism or Never 2021 islam services? Do you [...]
--- OUTSIDE RECORDS SUMMARY | 2022-05-21 11:36 | XMS_ITS | Encounter Summary ---
:1945 Author Organization [facility] Address [address] [place] [address] Care Team Providers Name Role Phone Ewa Alejandro M.D. Primary Care Provider [phone] Encounter Details Date Type Department Care Team Description 07/04/2017 Hospital Encounter HX [facility] Ewa Grier M.D. [address] [place], [place] [phone] (Wo rk) Social History [...] do you attend synagogue or Never 2021 voodoo services? Do you [...] Procedure Name Priority Date/Time Associated Comments Diagnosis HEMOGLOBIN A1C, B Routine 07/04/2017 8:13 AM Resu lts for this CDT procedure are i n the results section. BASIC METABOLIC Routine 07/04/2017 8:13 AM Result s for this PANEL, S/P CDT procedure are i n the results section. documented in this encounter Results (ABNORMAL) Hemoglobin A1c (07/04/2017 8:13 AM CDT) P athologist Signature Hemoglobin A1c, 8.5 (H) <=5.6 A1C POWERCHART B Specimen (Source) Anatomical Collection Method Collection Time Re ceived Time Location / / Volume Laterality Blood 07/04/2017 8:13 AM CDT Ewa Alejandro M.D. LAB BLOOD ADD-ON Performing Organization Address City/State/ZIP Code Phon e Number POWERCHART POWERCHART NA (ABNORMAL) BMP (Basic Metabolic Panel) (07/04/2017 8:13 AM CDT) P athologist Signature Sodium, S 139 135 - 145 POWERCHART MMOLL Potassium, S 4.6 3.6 - 5.2 POWERCHART MMOLL Chloride, S 102 98 - 107 POWERCHART MMO[facility] CO2 Total 23 22 - 29 POWERCHART MMOLL Comment: Reference ranges have not been established for patients that are <12 months of age. Glucose, Fasting, S 242 (H) 70 - 99 MGDL POWERCH ART BUN (Blood Urea Nitrogen), S 29 (H) 8 - 24 MGDL POWERCHART Creatinine 1.09 0.80 - 1.30 MGDL POWERCHART Calcium, Total, S 9.2 8.8 - 10.3 MGDL POWERC NGUYỄN Anion Gap 14 7 - 15 MMOLL POWERCHART HXeGFR (MDRD) >60 >=60 [id number] POWERCHART eGFR Black/ >60 >=60 [id number] POWERCHART Specimen (Source) Anatomical Collection Method Collection Time Re ceived Time Location / / Volume Laterality Blood 07/04/2017 8:13 AM CDT Ewa Alejandro M.D. LAB BLOOD ADD-ON Performing Organization Address City/State/ZIP Code Phon e Number POWERCHART POWERCHART NA documented in this encounter Visit Diagnoses Not on filedocumented in this encounter Additional Health Concerns Assessment Noted Time PHQ-9 Depression Total Score: 6 01/31/2015 12:28 PM CD T documented as of this encounter Care Teams Paper Mill Supervisor Relationship Specialty Start Date End Date Ewa Alejandro M.D. PCP - General 03/13/17 01/09/[address] [place] [phone] documented as of this encounter
--- OUTSIDE RECORDS SUMMARY | 2022-05-21 11:36 | XMS_ITS | Encounter Summary ---
:1945 Author Organization [facility] Address [address] [place] [address] Care Team Providers Name Role Phone Unavailable Primary Care Provider Unavailable Encounter Details Date Type Department Care Team Description 08/29/2016 Hospital Encounter HX [facility] Prasanna Bernal M.D. [address] [place] [phone] (Wo rk) Social History Tobacco Use Types Packs/Day Years Used Date Smoking Tobacco: Never Assessed Alcohol Habits Answer Date Recorded How often [...] do you attend religion or Never 2021 cheondoism services? Do you [...] Start Date End Date clopidogreL (PLAVIX) 75 Take 1 tablet by 0 2015 mg tablet mouth daily. albuterol sulfate 90 Inhale 2 puffs every 0 08/1909/13/2020 mcg/actuation aerosol 6 (six) hours as powdr breath activated needed. budesonide-formoterol Inhale 2 puffs as 0 013 12/16/2019 (for_SYMBICORT) 160-4.5 needed. mcg/actuation inhaler doxazosin (CARDURA) 4 mg Take 1 tablet by 0 12/3105/08/2018 tablet mouth at bedtime. gemfibroziL (LOPID) 600 Take 1 tablet by 0 200811/06/2021 mg tablet mouth. insulin aspart (NovoLOG) Inject 20 Units under 0 12/28/2014 09/18/2018 100 unit/mL injection the skin 3 (three) times a [...] at bedtime. metFORMIN Take 1 tablet by 0 08/22/2010 06/22/20 18 (for_GLUCOPHAGE) 1,000 mouth 2 (two) times a mg tablet day with meals. metFORMIN (GLUMETZA) Take 1 tablet by 0 9 11/07/2021 1,000 mg 24 hr tablet mouth daily. documented as of this encounter Plan of Treatment Not on filedocumented as of this encounter Visit Diagnoses Not on filedocumented in this encounter Additional Health Concerns Assessment Noted Time PHQ-9 Depression Total Score: 6 01/31/2015 12:28 PM CD T documented as of this encounter
--- OUTSIDE RECORDS SUMMARY | 2022-05-21 11:36 | XMS_ITS | Encounter Summary ---
:1945 Author Organization [facility] Address [address] [place] [address] Care Team Providers Name Role Phone Ewa Alejandro M.D. Primary Care Provider [phone] Reason for Referral MRI/CAT/PET Scan (Routine) - Closed Specialty Diagnoses / Procedures Referred By Contact Refer red To Contact Radiology Diagnoses Dizziness ARMAAN Alejandro [facility] Region Procedures MR Brain without and with IV Contrast Pato Mcneil [address] [phone] Referral ID Status Reason Start Date Expiration Date Visits Requ ested Visits Authorized [id number] Closed 09/12/2017 03/11/2018 1 1 ER OPERATOR Encounter Details Date Type Department Care Team Description 09/12/2017 Orders Only Department of [facility] Philip obrien (Primary Dx) Medicine, [facility], [place] [address] [place] [address] [place] [phone] Social History Tobacco Use Types Packs/Day Years [...] do you attend spiritism or Never 2021 taoist services? Do you [...] filedocumented as of this encounter Results MR Brain without and with IV Contrast (09/17/2017 10:20 AM TESTER OPERATOR) Anatomical Region Laterality Modality Head, Brain N/A Magnetic Resonance Specimen (Source) Anatomical Collection Method Collection Time Re ceived Time Location / / Volume Laterality 09/17/2017 11:01 AM TESTER OPERATOR Impressions 09/17/2017 11:38 AM TESTER OPERATOR IMPRESSION: 1. 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 2. Normal variant head MRA. 3. Paranasal sinus disease appears acute . Narrative 09/17/2017 11:38 AM TESTER OPERATOR EXAM: MR BRAIN WITHOUT AND WITH IV [...] disease appears acute . Ewa Alejandro M.D. IMG MRI PROCEDURES documented in this encounter Visit Diagnoses Diagnosis Dizziness - Primary Dizziness And Giddiness Dizziness documented in this encounter Care Teams Wood Craftsman Relationship Specialty Start Date End Date Ewa Alejandro M.D. PCP - General 03/13/17 01/09/[address] [place] [address] documented as of this encounter
--- OUTSIDE RECORDS SUMMARY | 2022-05-21 11:36 | XMS_ITS | Encounter Summary ---
:1945 Author Organization [facility] Address [address] [place] [address] Care Team Providers Name Role Phone Unavailable Primary Care Provider Unavailable Encounter Details Date Type Department Care Team Description 11/07/2016 Hospital Encounter HX NO MAPPING Virginia Bernal M.D. [address] [place], [place] [phone] (Wo rk) Social History [...] do you attend hoahaoism or Never 2021 holiness services? Do you [...]
--- OUTSIDE RECORDS SUMMARY | 2022-05-21 11:36 | XMS_ITS | Encounter Summary ---
:1945 Author Organization [facility] Address [address] [place] [address] Care Team Providers Name Role Phone Unavailable Primary Care Provider Unavailable Encounter Details Date Type Department Care Team Description 02/27/2017 Hospital Encounter HX [facility] Ewa Grier M.D. [address] [place], [place] [phone] (Wo rk) Social History [...] do you attend adventism or Never 2021 muslim services? Do you [...] Associated Comments Diagnosis LIPID PANEL, S Routine 02/27/2017 7:47 AM Results for this CDT procedure are i n the results section. LDL CHOLESTEROL Routine 02/27/2017 7:47 AM Result s for this (BETA-QUANTIFICATION) CDT proced ure are in , S the results section. documented in this encounter Results (ABNORMAL) Lipid Panel (02/27/2017 7:47 AM CDT) [facility] gist Method Time Signature Calculated LDL Test Not <=129 POWERCHART Performed MGDL Comment: LDL Calculated cannot be perfor med because the Triglyceride is > 400 mg/dL. A measured LDL has been ordered. Cholesterol, Total 238 (H) <=199 MGDL POWERCHART Comment: 2014 National Lipid Association recommen dations for Total Cholesterol in adults ages 18 and up: Desirable <200 mg/dL Borderline high 200-239 mg/dL High 240 mg/dL 2014 National Lipid Association recommen dations for Total Cholesterol in children ages 2 to 17. Acceptable <170 mg/dL Borderline High 170-199 mg/dL High 200 mg/dL HX HDL 29 (L) >=40 MGDL POWERCHART Comment: 2014 National Lipid Association recommen dations for HDL-C in adults ages 18 and up: Low <40 mg/dL (Men) Low <50 mg/dL (Women) 2014 National Lipid Association recommen dations for HDL-C in children ages 2 to 17. Low <40 mg/dL Borderline Low 40-45 mg/dL Acceptable >45 mg/dL Triglycerides 770 (H) <=149 MGDL POWERCHART Comment: 2013 National Lipid Association recommen dations for Triglycerides in adults ages 18 and up: Normal <150 mg/dL Borderline High 150-199 mg/dL High 200-499 mg/dL Very High 500 mg/dL 2014 National Lipid Association recommen dations for Triglycerides in children ages 2 to 9. Acceptable <75 mg/dL Borderline High 75-99 mg/dL High 100 mg/dL 2014 National Lipid Association recommen dations for Triglycerides in children ages 10 to 17. Acceptable <90 mg/dL Borderline High 90-129 mg/dL High 130 mg/dL Trigs >400mg/dL: Triglycerides >400 mg/ dL. Calculated LDL cholesterol is not valid. Non-HDL cholesterol may be used for risk assessment when triglycerides are >400mg/dL. Total Cholesterol/HDL Ratio 8.00 PO WERCHART HXLDL/HDL Not performed POWERCHART Specimen (Source) Anatomical Collection Method Collection Time Re ceived Time Location / / Volume Laterality Blood 02/27/2017 7:47 AM CDT Ewa Alejandro M.D. LAB BLOOD ADD-ON Performing Organization Address City/State/ZIP Code Phon e Number POWERCHART LDL Cholesterol (Beta-Quantification) (02/27/2017 7:47 AM CDT) P athologist Signature Direct LDL 88 <=129 MGDL POWERCHART Comment: 2013 National Lipid Association recommen dations for LDL-C in adults ages 18 and up: Desirable <100 mg/dL Above desirable 100-129 mg/dL Borderline high 130-159 mg/dL High 160-189 mg/dL Very High 190 mg/dL 2014 National Lipid Association recommen dations for LDL-C in children ages 2 to 17. Acceptable <110 mg/dL Borderline High 110-129mg/dL High 130 mg/dL LDL-C >190mg/dL: The markedly elevated LDL level is suggestive of a genetic condition such as familial hypercholesterolemia(FH) or familial defective apolipoprotein B-100 (FDB). Molecular genetic t esting for FH and FDB is available [facility]: FH/ADH Genetic Reflex Saleh el (test ADHP). Acquired (non-genetic) causes of markedly increased LDL cholesterol include cholestatic liver disease due to the presence of LpX. If a genetic form of hypercholesterolemia is suspected, family studies including biochemical testing fo r lipids (total cholesterol,triglycerides, LDL cholesterol and HDL cholesterol) are recommended. ??Please contact the laboratory at or the on-line test catalog at [employer] for information about how to order these more ts or to speak with a genetic counselor. Further interpretation would require clinical information. Specimen Anatomical Collection Method Collection Time Receive d Time (Source) Location / / Volume Laterality Blood 02/27/2017 7:47 AM 7 7:47 CDT AM CDT Ewa Alejandro M.D. LAB BLOOD ADD-ON Performing Organization Address City/State/ZIP Code Phon e Number POWERCHART documented in this encounter Visit Diagnoses Not on filedocumented in this encounter Additional Health Concerns Assessment Noted Time PHQ-9 Depression Total Score: 6 01/31/2015 12:28 PM CD T documented as of this encounter
--- OUTSIDE RECORDS SUMMARY | 2022-05-21 11:36 | XMS_ITS | Encounter Summary ---
:1945 Author Organization [facility] Address [address] [place] [address] Care Team Providers Name Role Phone Unavailable Primary Care Provider Unavailable Encounter Details Date Type Department Care Team Description 02/27/2017 Hospital Encounter HX [facility] Chase Luevano M.D. [address] [place], [place] [phone] (Wo rk) Social History [...] do you attend confucianist or Never 2021 hindu services? Do you [...] of this encounter Miscellaneous Notes Miscellaneous - Ailyn Luevano M.D. - 02/28/2017 1:08 PM CDT Results Notification Document Contains Addenda Addendum by RODERICK THOMAS LPN on February 28, 2017 13:26:50 CDT Patient was informed of normal results. From: AILYN LUEVANO MD To: Urology Nurse; Sent: 02/28/2017 13:08:11 CDT ! Show up: 02/28/2017 13:08:11 CDT Subject: Results Notification Actions: Notify patient of results Reminder Comments: cyto is neg Results: Date Result Type Result Name 02/28/2017 13:03 Document - DOC Non-MUD ANALYSIS SUPERVISOR Cytology Source: [facility] POWERCHART Document Id: [id number] Electronically signed by Karen [facility] Reinforcing Steel Erector [id number] at 04/01/2017 4:09 PM CDT Miscellaneous - Jacquie Hamilton, L.P.N. - 02/26/2017 9:42 AM CDT request for labs Document Contains Addenda Addendum by ANIBAL GOLD on February 27, 2017 07:33:03 CDT This is done. Addendum by JACQUIE HAMILTON LPN on February 26, 2017 17:19:40 CDT From: JACQUIE HAMILTON LPN ([facility] Nurse) To: [place] Bathhouse Keeper; Sent: 02/26/2017 17:19:40 CDT ! Subject: FW: request for labs Addendum by PIERO ROJAS MD on February 26, 2017 17:17:25 CDT From: PIERO ROJAS MD To: [facility] Nurse; Sent: 02/26/2017 17:17:25 CDT Subject: RE: request for labs I did order fasting labs From: JACQUIE HAMILTON LPN ([facility] Nurse) To: PIERO ROJAS MD; Sent: 02/26/2017 09:42:06 CDT ! Subject: request for labs Spoke with: ( _x ) Patient ( _ ) Parent ( _ ) Spouse ( _ ) Child ( ) Other: _ Call back telephone number: [phone]_ Reason for Call: -_request for labs Chief Complaint: patient is scheduled to have labs ordered by dr luevano on 02/27/2017 at 7:30 am and is requesting that if there are any labs you also wish to have patient do please put orders in emrand notify patient especially if patient needs to be fasting _ Patient/Caller response to Education/Information given: ( _ ) Verbalizes understanding of instructions ( _ ) Provide intervention per provider instruction ( x_ ) Reinforce information already given ( _ ) Reinforce Plan of Care ( _ ) Provide preprinted information by mail (if applicable) Source/Reference used (if applicable): lace cutter lynn_ OK to leave message on voice mail? yes_ OK to send message via patient portal? no_ Patient told to expect return call: ( x_ ) today ( _ ) tomorrow ( _ ) next work day Callers preferred language for Healthcare discussion: english_ Was an real estate legal secretary used for this call? _no Other ( --_ ) Source: [facility] Document Id: [id number] Electronically signed by Conversion, [facility] Reinforcing Steel Erector [id number] at 04/01/2017 4:09 PM CDT documented in this encounter Plan of Treatment Not on filedocumented as of this encounter Procedures Procedure Name Priority Date/Time Associated Comments Diagnosis ZZPATHOLOGY NON-MUD ANALYSIS SUPERVISOR Routine 02/27/2017 9:09 AM Re sults for this CYTOLOGY CDT procedure are i n the results section. documented in this encounter Results ZZPATHOLOGY NON-MUD ANALYSIS SUPERVISOR CYTOLOGY (02/27/2017 9:09 AM CDT) Specimen (Source) Anatomical Collection Method Collection Time Re ceived Time Location / / Volume Laterality 02/27/2017 9:09 AM CDT Narrative [facility] - 02/28/2017 1:03 PM CDT [facility] [place] [address] [place] [address] ??[phone] Patient Name: BETH COSTA Patient ID #: [id number] Collected: 02/27/2017 Address: [facility]/State/Zip: [address] [place], [place] ??[id number] Received: Reported: 02/28/2017 02/28/2017 Soc. Sec. #: ?/Age/Sex 1 (Age: 71) ??M Physician(s): Juana LUEVANO MD Copy To: ? [facility] ??[id number] [address] [place] [address], ??[place] ??[address] CYTOPATHOLOGY NON-MUD ANALYSIS SUPERVISOR REPORT FINAL CYTOLOGIC DIAGNOSIS Urine-VOIDED: NEGATIVE FOR HIGH-GRADE UROTHELIAL CARCINOMA SATISFACTORY SPECIMEN FOR EVALUATION. Electronically Signed By mpg/02/28/2017 XAVI NEVILLE MD [facility] CT(ASCP) SPECIMEN(S) RECEIVED: Urine-VOIDED CLINICAL HISTORY: HISTORY OF BLADDER CANCER GROSS DESCRIPTION: 2 CYTOSPINS PREPARED FROM 10 ML LIGHT YE LLOW FLUID FIXED IN ALCOHOL. Ailyn Luevano M.D. LAB PATHOLOGY/CYTOLOGY ORDER ELISHA Performing Organization Address City/State/ZIP Code Phon e Number [facility] documented in this encounter Visit Diagnoses Not on filedocumented in this encounter Additional Health Concerns Assessment Noted Time PHQ-9 Depression Total Score: 6 01/31/2015 12:28 PM CD T documented as of this encounter
--- OUTSIDE RECORDS SUMMARY | 2022-05-21 11:37 | XMS_ITS | Encounter Summary ---
:1945 Author Organization [facility] Address [address] [place] [address] Care Team Providers Name Role Phone Unavailable Primary Care Provider Unavailable Encounter Details Date Type Department Care Team Description 05/09/2016 Hospital Encounter HX [facility] Ailyn Bernal M.D. [address] [place] [address] (Wo rk) Social History Tobacco [...] do you attend hoahaoism or Never 2021 quaker services? Do you [...] Sign Reading Time Taken Comments Blood Pressure 118/56 05/09/2016 9:01 AM CDT Pulse 68 05/09/2016 9:01 AM CDT Temperature - - Respiratory Rate 16 05/09/2016 9:01 AM CDT Oxygen Saturation - - Inhaled Oxygen Concentration - - Weight - - Height 188 cm (6' 2.02) 05/09/2016 9:01 AM CDT Body Mass Index - - documented in this encounter Medications at Time of Discharge Medication Sig Dispensed Refills Start Date End Date clopidogreL (PLAVIX) 75 Take 1 tablet by 0 2015 mg tablet mouth daily. budesonide-formoterol Inhale 2 puffs as 0 013 [...] mouth daily. documented as of this encounter Consult Notes Ailyn Bernal M.D. - 05/09/2016 8:19 AM CDT [id number] CHIEF COMPLAINT/REASON FOR VISIT Gross hematuria. HISTORY OF PRESENT ILLNESS This is a 70-year-old male who approximately 9 days ago developed acute onset of gross hematuria. This lasted for 3 days. Hematuria was total as opposed to initial or terminal. It was painless. He specifically denied dysuria, flank, abdominal, pelvic or perineal pain. It was not associated with acute change in urination habits including frequency or urgency. At baseline he does occasionally have urinary urgency. This is most pronounced when he is either driving home or when he suddenly stands up. Hehas a longstanding history of benign prostatic hypertrophy. I actually initially met him in June 2008 for that problem. He is currently taking doxazosin 4 mg daily and finasteride 5 mg daily. I would note that the patient did not have any blood clots associated with his gross hematuria. Since the hematuria resolved he has not had any further episode. At the time it started he was riding a motorcycle for an extended period of time. There was no trauma involved. PAST MEDICAL/SURGICAL HISTORY Diabetes mellitus type 2. Hyperlipidemia. Hypertension. Obstructive sleep apnea. MEDICATIONS Atorvastatin 40 mg at bedtime. Budesonide/formoterol 2 puffs daily. Plavix 75 mg daily. Doxazosin 4 mg at bedtime. Finasteride 5 mg daily. Hydrochlorothiazide 1 pill daily. Insulin as directed. <__IM_1: BLANK __>150 mg daily. Metformin 1000 mg 2 times daily. Prednisone as directed. ALLERGIES Doxycycline, penicillin, and sulfa drugs. FAMILY HISTORY Noncontributory for urological disease. SOCIAL HISTORY The patient is . 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 He has beenexposed to Agent [place]. He quit tobacco 35 years ago. Has an average of 1 beer per month. SYSTEMS REVIEW See personal history form completed and reviewed 05/09/2016. VITAL SIGNS Temperature is 36, heart rate 68, respiratory rate 16, blood pressure 116/56. PHYSICAL EXAMINATION GENERAL: The patient is well nourished, well developed and in no apparent distress. There are no communication barriers. He is alert and oriented. HEAD: No abnormality of appearance. No facial abnormalities. ENT: No neck masses. THYROID: No thyroid enlargement. HEART: Regular rate and rhythm. Abdominal aorta is not palpable. Femoral pulses are 2+ and equal bilaterally. No peripheral cyanosis or edema. LUNGS: Normal respiratory movements. No shortness of breath. ABDOMEN: Flat and nondistended. No guarding. No tenderness. No ascites. No hepatosplenomegaly. Kidneys are not palpable. Bladder size is normal. There are no ventral hernias. There are no inguinal hernias. RECTUM: Perirectal region is unremarkable without evidence of condyloma, skin tags or other lesions.Rectal sphincter tone is normal. There are no rectal masses. PROSTATE: Prostate is approximately 45 to 50 g in size. It is smooth in consistency. It is symmetrical. Prostate is without nodules or tenderness. Seminal vesicles are not palpable. GENITALIA: Penis: No discharge, no masses and no plaques. Meatus is normally located on the glans penis, there is no meatal scarring and it is of normal size. Penis is uncircumcised. Scrotum: No rashes. No hydroceles or spermatoceles are present. No palpable varicocele is noted. Testes: Both testes are descended. They are without masses or tenderness. Each testis is of normal size and consistency. Epididymides: Each epididymis is of normal size, without masses, without tenderness or signs of epididymitis. Both the right and left vas deferens are palpable. Perineum: Unremarkable. There are no obvious skin tags, condylomata or other lesions. SPINE: No spinal tenderness. No costovertebral angle tenderness. DIAGNOSTICS Urine cytology was performed recently. It was negative but did demonstrate some atypical changes andthey could not entirely exclude low-grade urothelial carcinoma. CT urogram was performed on the 03 of May. I had the opportunity to review the films and report.My comments are limited to the urinary tract. There are no urinary tract stones or solid renal masses. No evidence of hydronephrosis, hydroureter or defects of filling. Prostate enlargement is noted and there is some evidence of bladder wall thickening. IMPRESSION/REPORT/PLAN 1. History of gross hematuria. 2. Benign prostatic hypertrophy. PLAN: I would like to proceed with a cystoscopy. The patient could not stay long enough to do it today and we will make arrangements to do it this coming Friday. Cystoscopy was explained to the patient. We did discuss the differential diagnoses and explained how medicines such as warfarin can affect his hematuria. Although warfarin is not listed on his drug list, the patient indicates that he does utilize this medication. Ailyn Bernal M.D./phong cc: Piero Hinton M.D. [facility] [place] [address] Electronically Signed By: AILYN BERNAL MD On: 05/13/2016 08:04 AM Source: [facility] MHSDOLBEYNONRADSYS Document Id: [id number] documented in this encounter Miscellaneous Notes Telephone Encounter - Conversion, Historical Provider Ser - 05/13/2016 8:04 AM CDT *Phone Message Document Contains Addenda Addendum by NATALEE WARREN LPN on May 21, 2016 08:23:04 CDT is available Aug.02 at 2 p.m.. Message left for Diallo in regards to this. Addendum by NATALEE WARREN LPN on May 14, 2016 10:18:28 CDT From: NATALEE WARREN LPN ( Neurology Nurse) To: FRANCISCA LALA MD MPH; Sent: 05/14/2016 10:18:28 CDT Subject: FW: *Phone Message Addendum by NATALEE WARREN LPN on May 14, 2016 10:18:20 CDT Diallo () of [facility] stated she has these dates available for the conference. These are Friday afternoons - July 26 or Aug 02. You can present for one hour which would be from 1-2 p.m. or if you want 2 hours then it would be from 1-3 p.m. From: NANO MILES ([employer]) To: Neurology Nurse; Sent: 05/13/2016 08:04:58 CDT Subject: *Phone Message Caller is: ( x ) Patient ( ) Mother ( ) Father ( ) Spouse ( ) Daughter ( ) Son ( ) Pharmacy ( ) Other: Physician: Patient MRN #: Reason for Call: Patient stopped into the clinic. She needs to reach Dr. Lala regarding a conference he is trying to get Dr. Lala scheduled for. He can be reached at [phone] or a [employer] phone [phone]. Patient is aware that Dr. Lala is not in until Friday. Message: Advice/Action: Source used: ( ) Verbalizes understanding of instructions ( ) Instructed to call back if symptoms worsen or do not resolve ( ) Refused to see provider ( ) Appointment Scheduled ( ) OK to leave message on voice mail ( ) Patient told to expect return call: ( ) today ( ) tomorrow ( ) next work day ( ) Patient's email ( ) Patient told physician out of office, will call upon return call on ( ) ( ) Patient told physician out of office, routed to other physician ( ) Other ( ) Call back telephone number ( ) Call back cell phone number ( ) Source: [facility] POWERCHART Document Id: [id number] Miscellaneous - Raegan Rehman APRN, R.N. - 05/10/2016 9:21 AM CDT Results Notification Document Contains Addenda Addendum by RODERICK THOMAS LPN on May 10, 2016 09:40:12 CDT Patient informed of normal results. From: RAEGAN REHMAN APRN, RN To: Urology Nurse; Sent: 05/10/2016 09:21:50 CDT ! Show up: 05/10/2016 09:21:50 CDT Subject: Results Notification Actions: Notify patient of results Reminder Comments: ua/uc negative Results: Date Result Type Ind Result Name MBO Review Culture Urine Source: [facility] POWERCHART Document Id: [id number] Miscellaneous - Ailyn Bernal M.D. - 05/09/2016 1:00 PM CDT Ambulatory Patient Summary [address] [id number] Visit Information Name: BETH COSTA [facility] Number: [id number] Current Date: 05/09/2016 13:00:12 Physicians Attending Provider: AILYN BERNAL MD Primary [...] Take Indications/Special Instructions/Comments/Notes for Patient Medication Changes/Routing atorvastatin (atorvastatin 40 mg oral tablet) 1 [...] tablet) 1 Tablet(s), Oral, once a day hydrochlorothiazide (hydrochlorothiazide) Oral, once a day insulin aspart (NovoLOG 100 units/mL subcutaneous solution) 15 units, Subcutaneous, three times a day before meals (Vial) Give within 5-10 minutes before a meal. insulin glargine (Lantus 100 units/mL subcutaneous solution) 40 units, Subcutaneous, once a day (at bedtime) losartan (losartan 100 mg oral tablet) 1.5 Tablet(s), Oral, once a day metformin (metformin 1000 mg oral tablet) 1 Tablet(s), Oral, two times a day with meals predniSONE (predniSONE 10 mg oral tablet) See special instructions, Oral, as directed Stop Taking the Following Medications: Medication list as of 05-09-16 13:00 Attention: If you have any medications at [...] Electronically Signed By: AILYN BERNAL MD Signed On:09-MAY-2016 12:54:11 Your Allergies & Intolerances Substance Reaction Symptoms Category Comments doxycycline severe rash Drug penicillin Drug sulfa drugs Drug Your Problem List Problem Status Onset Comments Diabetes mellitus type II Active 11/05/1996 DM Type2 Neuropathy Active 08/24/2008 Hypertension Active Hypercholesterolemia* Active Your Upcoming Appointments Date Time Location Provider 05/13/2016 14:30 [facility] Ailyn Bernal MD Attention: Contact [...] if you dont have one. Go to [email or web address] and click on Create Your Account. Then, follow the directions to complete the online form. Youll be asked for your [facility] number which you can find at the top of this document. Your Goals/Additional instructions: Source: [facility] POWERCHART Document Id: [id number] Miscellaneous - Ailyn Bernal M.D. - 05/09/2016 1:00 PM CDT Ambulatory Discharge Medication List [address] [id number] Visit Information Name: BETH COSTA [facility] Number: [id number] Visit Date: 05/09/2016 13:00:11 Attending Provider: AILYN BERNAL MD Primary Care [...] Take Indications/Special Instructions/Comments/Notes for Patient Medication Changes/Routing atorvastatin (atorvastatin 40 mg oral tablet) 1 [...] tablet) 1 Tablet(s), Oral, once a day hydrochlorothiazide (hydrochlorothiazide) Oral, once a day insulin aspart (NovoLOG 100 units/mL subcutaneous solution) 15 units, Subcutaneous, three times a day before meals (Vial) Give within 5-10 minutes before a meal. insulin glargine (Lantus 100 units/mL subcutaneous solution) 40 units, Subcutaneous, once a day (at bedtime) losartan (losartan 100 mg oral tablet) 1.5 Tablet(s), Oral, once a day metformin (metformin 1000 mg oral tablet) 1 Tablet(s), Oral, two times a day with meals predniSONE (predniSONE 10 mg oral tablet) See special instructions, Oral, as directed Stop Taking the Following Medications: Medication list as of 05-09-16 13:00 Attention: If you have any medications at [...] Electronically Signed By: AILYN BERNAL MD Signed On:09-MAY-2016 12:54:11 Additional Information: Source: [facility] POWERCHART Document Id: [id number] Miscellaneous - Becky Hager L.P.N. - 05/09/2016 9:20 AM CDT Urology AUA/BPH Symptom Score Urology AUA/BPH Symptom Score Entered On: 05/09/2016 9:22 CDT Performed On: 05/09/2016 9:20 CDT by BECKY HAGER LPN Urology AUA/BPH Symptom Score Emptying Bladder After Urinating : Not at all Urinate 2 Hours After Urinating : Almost always Stop/Start Again When Urinating : Not at all Difficult to Postpone Urination : Almost always Weak Urinary Stream : Not at all Push/Strain to Begin Urination : Not at all Up to Urinate at Night : 3 times Total Symptom Score : 13 Feel About Urinary Condition : Satisfied BECKY HAGER LPN - 05/09/2016 9:20 CDT Source: [facility] YYzhaocheCHART Document Id: [id number] CDT!11 Carencellmaria e - Becky Hager L.P.N. - 05/09/2016 9:01 AM CDT Adult Swage Toolsetter Intake/History Adult Swage Toolsetter Intake/History Entered On: 05/09/2016 9:03 CDT Performed On: 05/09/2016 9:01 CDT by BECKY HAGER LPN Intake Chief Complaint : Hematuria Temperature Core : 36.0 DegC(Converted to: 96.8 DegF) (LOW) Peripheral Pulse Rate : 68 /min Respiratory Rate : 16 /min Heart Rhythm : Regular Systolic Blood Pressure : 118 mmHg Diastolic Blood Pressure : 56 mmHg NIBP Mean : 77 mmHg Height : 188 cm(Converted to: 6 ft 2 inch(es), 74 inch(es)) BECKY HAGER [facility] - 05/09/2016 9:01 CDT General Info Information Given By : Patient Preferred Communication Mode : Verbal Languages : Danish Is Patient Female and 13-50 no hysterectomy : No BECKY HAGER [facility] - 05/09/2016 9:01 CDT Subjective Pain Symptoms : No BECKY HAGER LPN - 05/09/2016 9:01 CDT Dependent Habits Exposure to Tobacco Smoke : Other: quit in 1982 Smoking Status : Former smoker Tobacco 2A : Yes Tobacco Use/Currently Using : No Tobacco Use/Last 30 Days : No Tobacco Use/Last 12 months : No Tobacco Last Use/Year : 1982 BECKY HAGER [facility] - 05/09/2016 9:01 CDT Caffeine Use Grid Caffeine Use : Current Type : Chocolate, Coffee, Soft drinks Frequency : Daily BECKY HAGER [facility] - 05/09/2016 9:01 CDT Recreational Drug Use Grid Drug Use : None BECKY HAGER [facility] - 05/09/2016 9:01 CDT Source: [facility] Document Id: [id number] CDT!34 documented in this encounter Plan of Treatment Not on filedocumented as of this encounter Procedures Procedure Name Priority Date/Time Associated Comments Diagnosis URINALYSIS WITH Routine 05/09/2016 9:45 AM Result s for this MICROSCOPIC CDT procedure are i n the results section. BACTERIAL CULTURE, Routine 05/09/2016 9:45 AM Res ults for this AEROBIC, URINE CDT procedure are in the results section. ZZPATHOLOGY NON-PATTERN SETTER Routine 05/09/2016 7:43 AM Re sults for this CYTOLOGY CDT procedure are i n the results section. documented in this encounter Results (ABNORMAL) Urinalysis, Complete, Includes Microscopic (05/09/2016 9:45 AM CDT) [facility] gist Method Time Signature HXUR WBC. None Seen None Seen POWERCHART HPF HXUR RBC. None Seen None Seen POWERCHART HPF Casts, Hyaline 1-3 (A) None Seen POWERCHART LPF HXUr Color Yellow Yellow POWERCHART Clarity Clear Clear POWERCHART Glucose Negative Negative POWERCHART HXBILIRUBIN Negative Negative POWERCHART Ketones, QL(U) Negative Negative POWERCHART Specific 1.017 1.001 - POWERCHART [place], POCT, U 1.035 pH, POCT, Urine 5.5 POWERCHART Protein, Ur, Dip Negative Negative POWERCHART Urobilinogen 1.0 0.2 MGDL POWERCHART HXNITRITE Negative Negative POWERCHART HXBLOOD Negative Negative POWERCHART Leukocyte Negative Negative POWERCHART Esterase Specimen (Source) Anatomical Collection Method Collection Time Re ceived Time Location / / Volume Laterality Urine, First 05/09/2016 9:45 AM Voided CDT Ailyn Bernal M.D. LAB URINE ORDERABLES Performing Organization Address City/State/ZIP Code Phon e Number POWERCHART Bacterial Culture, Aerobic, Urine (05/09/2016 9:45 AM CDT) [facility] Signature Bacterial POWERCHART Culture, Aerobic, Urine HXFinal No growth POWERCHART Specimen (Source) Anatomical Collection Method Collection Time Re ceived Time Location / / Volume Laterality Urine, First 05/09/2016 9:45 AM Voided CDT Ailyn Bernal M.D. LAB MICROBIOLOGY - GENERAL O RDERABLES Performing Organization Address City/[facility]/ZIP Code Phon e Number POWERCHART ZZPATHOLOGY NON-PATTERN SETTER CYTOLOGY (05/09/2016 7:43 AM CDT) Specimen (Source) Anatomical Collection Method Collection Time Re ceived Time Location / / Volume Laterality 05/09/2016 7:43 AM CDT Narrative [facility] - 05/10/2016 1:56 PM CDT [facility] in [facility] [address] [place], [place] ??[address] Patient Name: BETH COSTA Patient ID #: [id number] Collected: 05/09/2016 Address: City/State/Zip: [address] [place], [place] ??[id number] Received: Reported: 05/10/2016 05/10/2016 Soc. Sec. #: ?/Age/Sex 1945 (Age: 70) ??M Physician(s): A REGIS Copy To: ? [facility] ?? [id number] [place], ??[place] ??[address] CYTOPATHOLOGY NON-PATTERN SETTER REPORT FINAL CYTOLOGIC DIAGNOSIS Urine-VOIDED: DIAGNOSIS ATYPICAL UROTHELIAL CELLS CONSISTENT WIT H INFLAMMATION, CALCULUS, RECENT INSTRUMENTATION OR LOW GRADE PAPILLARY LESION. SATISFACTORY SPECIMEN FOR EVALUATION. Electronically Signed By [facility]/05/10/2016 Pato FARMER(ASCP) SPECIMEN(S) RECEIVED: Urine-VOIDED CLINICAL HISTORY: GROSS DESCRIPTION: 2 CYTOSPINS PREPARED FROM 60 ML YELLOW A LCOHOL FIXED FLUID. Ailyn Bernal M.D. LAB PATHOLOGY/CYTOLOGY ORDER ELISHA Performing Organization Address City/State/ZIP Code Phon e Number [facility] documented in this encounter Visit Diagnoses Not on filedocumented in this encounter Additional Health Concerns Assessment Noted Time PHQ-9 Depression Total Score: 6 01/31/2015 12:28 PM CD T documented as of this encounter
--- OUTSIDE RECORDS SUMMARY | 2022-05-21 11:37 | XMS_ITS | Encounter Summary ---
:1945 Author Organization [facility] Address [address] [place] [address] Care Team Providers Name Role Phone Unavailable Primary Care Provider Unavailable Encounter Details Date Type Department Care Team Description 05/03/2016 Hospital Encounter HX [facility] Piero Grier M.D. [address] [place], [place] [phone] (Wo rk) Social History [...] do you attend anabaptist or Never 2021 buddhism services? Do you [...] of this encounter Miscellaneous Notes Miscellaneous - Piero Weiss M.D. - 05/10/2016 4:42 PM CDT From: PIERO WEISS MD To: ALEJANDRA SIFUENTES; Sent: 05/10/2016 16:42:[address] urogram report from 8-5 is poor quality. Source: [facility] [employer] [place] Document Id: [id number] Electronically signed by Conversion, [facility] Receiving Worker [id number] at 02/23/2017 3:20 AM CDT documented in this encounter Plan of Treatment Not on filedocumented as of this encounter Procedures Procedure Name Priority Date/Time Associated Diagnosis Comme nts BASIC METABOLIC Routine 05/03/2016 12:46 PM Resul ts for this PANEL (BMP), POCT, CDT procedure are in B the results section. documented in this encounter Results (ABNORMAL) BMP (Basic Metabolic Panel), POCT (05/03/2016 12:46 PM CDT) P athologist Signature BUN (Blood Urea 31 (H) 8 - 26 POWERCHART Nitrogen), S MGDL Creatinine 1.6 (H) 0.6 - 1.3 POWERCHART MGDL Glucose 203 (H) 70 - 140 POWERCHART MGDL Potassium, S 4.4 3.5 - 4.9 POWERCHART MMOLL Sodium, S 139 138 - 146 POWERCHART MMOLL Chloride, S 105 98 - 109 POWERCHART MMOLL CO2 Total 18 (L) 24 - 29 POWERCHART MMOLL Calcium, 5.2 4.5 - 5.3 POWERCHART Ionized, B MGDL HXeGFR (MDRD) 43 (L) >=60 POWERCHART [id number] eGFR 52 (L) >=60 POWERCHART Black/ [id number] Turkmen Specimen (Source) Anatomical Collection Method Collection Time Re ceived Time Location / / Volume Laterality Blood 05/03/2016 12:46 PM CDT Piero Alejandro M.D. LAB POCT ORDERABLES - DEVICE Performing Organization Address City/State/ZIP Code Phon e Number POWERCHART documented in this encounter Visit Diagnoses Not on filedocumented in this encounter Additional Health Concerns Assessment Noted Time PHQ-9 Depression Total Score: 6 01/31/2015 12:28 PM CD T documented as of this encounter
--- OUTSIDE RECORDS SUMMARY | 2022-05-21 11:37 | XMS_ITS | Encounter Summary ---
:1945 Author Organization [facility] Address [address] [place] [address] Care Team Providers Name Role Phone Unavailable Primary Care Provider Unavailable Encounter Details Date Type Department Care Team Description 05/09/2016 Hospital Encounter HX NO MAPPING Virginia Bernal M.D. [address] [place], [place] [phone] (Wo rk) Social History [...] do you attend taoist or Never 2021 mormon services? Do you [...]
--- OUTSIDE RECORDS SUMMARY | 2022-05-21 11:37 | XMS_ITS | Encounter Summary ---
:1945 Author Organization [facility] Address [address] [place] [address] Care Team Providers Name Role Phone Unavailable Primary Care Provider Unavailable Encounter Details Date Type Department Care Team Description 05/22/2016 Hospital Encounter HX NO MAPPING Virginia Bernal M.D. [address] [place], [place] [phone] (Wo rk) Social History [...] do you attend baptist or Never 2021 religion services? Do you [...]
--- OUTSIDE RECORDS SUMMARY | 2022-05-21 11:37 | XMS_ITS | Encounter Summary ---
:1945 Author Organization [facility] Address [address] [place] [address] Care Team Providers Name Role Phone Unavailable Primary Care Provider Unavailable Encounter Details Date Type Department Care Team Description 05/16/2016 Hospital Encounter HX [facility] Piero Moya i, M.D. [address] [place] [address] (Wo rk) Social History Tobacco [...] do you attend cheondoism or Never 2021 jehovah's witness services? Do [...] Sign Reading Time Taken Comments Blood Pressure 126/66 05/16/2016 10:29 AM CDT Pulse 80 05/16/2016 10:29 AM CDT Temperature - - Respiratory Rate 16 05/16/2016 10:29 AM CDT Oxygen Saturation - - Inhaled Oxygen Concentration - - Weight 105 kg (231 lb 7.7 oz) 05/16/2016 10:29 AM CDT Height 188 cm (6' 2.02) 05/16/2016 10:29 AM CDT Body Mass Index 29.71 05/16/2016 10:29 AM CDT documented in this encounter Medications [...] mouth daily. documented as of this encounter H&P Notes Piero Weiss M.D. - 05/16/2016 9:27 AM CDT [id number] CHIEF COMPLAINT/ REASON FOR VISIT Proposed surgery date: 05/22/2016. Surgeon: Dr. Prasanna Bernal. Proposed surgery: Cystoscopy with bladder biopsies, transurethral resection of bladder tumor. Location: [facility] HISTORY OF PRESENT ILLNESS Jonnathan is a 70-year-old male who presents to the clinic today for a preanesthetic medical evaluation for cystoscopy with bladder biopsies, transurethral resection of bladder tumor. I am asked by Dr. Bernal to assess whether the patient is an adequate candidate for anesthesia. Jonnathan wonders what his restrictions will be after his procedure. His family [facility]. There are no further concerns at this time. MEDICATIONS Post-visit Medication Reconciliation 1. NovoLog 15 units, subcutaneous, t.i.d. with a meal. 2. Losartan 100 mg, 1.5 tablets (150 mg), PO, daily. 3. Atorvastatin 40 mg, 1 tablet, PO, daily at bedtime. 4. Budesonide-formoterol 160 mcg-4.5 mcg/inh inhalation aerosol, 2 puffs, b.i.d. 5. Finasteride 5 mg, 1 tablet, PO, daily. 6. Lantus 40 units, subcutaneously at bedtime. 7. Metformin 1,000 mg, 1 tablet, PO, b.i.d. 8. Plavix 75 mg, 1 tablet, PO, daily. 9. Hydrochlorothiazide, PO, daily. ALLERGIES Penicillin. Sulfa drugs. Doxycycline causes severe rash. SYSTEMS REVIEW He otherwise has no complaints. No headaches, numbness or tingling. No changes in vision or hearing.No sore throat, runny nose, earache or cough. No shortness of breath or chest pain. No abdominal pain or change in bowel habits. No hematuria or dysuria. No musculoskeletal aches or pains. No lymph node swelling. No easy bruising or bleeding. No excessive thirst or hunger. No mood or behavioral difficulties. Cardiac risk factors: Yes, hypertension and hypercholesterolemia, well controlled. Pulmonary risk factors: Yes, possible COPD, well controlled. Sleep Apnea: Yes, currently untreated. Steroid use within the past 12 months: none Diabetes: Yes, insulin dependent type II diabetes mellitus. Bleeding risk factors: Yes, on Plavix 75 mg patient is holding prior to surgery starting today, 05/16/2016. Anesthesia reactions: none Need for prophylactic antibiotics: none Beta chasidy: none The remainder of the review of systems is negative. PAST MEDICAL/SURGICAL HISTORY 1. Benign prostatic hypertrophy. 2. 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 3. Hypertension. 4. Hypercholesterolemia. 5. Erectile dysfunction. 6. Pulmonary symptomatology, diagnosis at the [facility] unclear, but probably some degree of COPD. 7. Status post left cataract surgery at the [facility]. 8. Tonsillectomy. 9. Obstructive sleep apnea, prescribed CPAP therapy but is currently not using. 10. 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 PREVENTIVE SERVICES Tobacco use: None. Lipid panel: 08/02/2015. Colonoscopy: 08/10/2013. Tetanus booster: 01/31/2015. Influenza: 07/28/2015. Zoster vaccine: 07/13/2012. Pneumovax 23: 11/14/2008. Prevnar 13: 01/31/2015. SOCIAL HISTORY He is . He doesn't smoke. 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 FAMILY HISTORY Mother had hypertension. There is no colon or prostate cancer in the family. There is no diabetes. Father had an [place] at age 76. Asthma and mental illness in a brother, sister. VITAL SIGNS HEIGHT: 188 cm. WEIGHT: 105 kg. BMI: 29.71 kg/m2. TEMP: 36.6 Deg C. PULSE: 80 /min. RESP: 16 /min. SpO2: 96 %. SYSTOLIC: 126 mmHg. DIASTOLIC: 66 mmHg. PHYSICAL EXAMINATION GENERAL: Alert and orientated x3, good hygiene, appropriately dressed. HEENT: Tympanic membranes are normal bilaterally. Oropharynx is without erythema or exudate. Nasal mucosa is without injection. Neck is without adenopathy. LYMPH NODES: Not palpably enlarged and no nodules are palpated. HEART: Regular rate and rhythm without murmur. LUNGS: Clear to auscultation. ABDOMEN: Soft and nontender with no masses. EXTREMITIES: Within normal limits. IMPRESSION/REPORT/PLAN 1. Preoperative evaluation for surgery. The patient is a suitable candidate up to and including general anesthesia. There is no contraindication to proceeding with anesthesia and surgery as planned. EKG and chest x-ray were completed today. He will begin holding his Plavix beginning today. Further recommendations per Dr. Bernal. 2. Suspected bladder cancer. Will refer patient to uro-oncology at [facility] per his request. Referral is pending results from upcoming procedure. 3. Follow up. The patient will contact the clinic with any new or worsening symptoms. This document serves as a record of services personally performed by Piero Roy MD. It was created on their behalf by Lulu Roldan, a trained ophthalmic medical assistant. The creation of this record is based on the scribe's personal observations and the provider's statements to them. This document has been christie cked and approved by the attending provider. Piero Hinton M.D./livia Electronically Signed By: PIERO WEISS MD On: 06/10/2016 09:24 AM Source: [facility] MHSDOLBEYNONRADSYS Document Id: [id number] documented in this encounter Miscellaneous Notes Miscellaneous - Kitty Bailey L.PMauroNMauro - 05/16/2016 10:29 AM CDT Adult Dietitian Therapeutic Intake/History Adult Dietitian Therapeutic Intake/History Entered On: 05/16/2016 10:30 CDT Performed On: 05/16/2016 10:29 CDT by KITTY BAILEY LPN Intake Chief Complaint : pre op Temperature Core : 36.6 DegC(Converted to: 97.9 DegF) Peripheral Pulse Rate : 80 /min Respiratory Rate : 16 /min Systolic Blood Pressure : 126 mmHg Diastolic Blood Pressure : 66 mmHg NIBP Mean : 86 mmHg BP Location : Right upper extremity Blood Pressure Cuff Size : Large SpO2 : 96 % Height : 188 cm(Converted to: 6 ft 2 inch(es), 74 inch(es)) Actual Weight : 105 kg(Converted to: 231 lb 8 oz) Weight Source : Standing scale Dosing Weight Clinic : 105 kg Clinic BSA : 2.34 Body Mass Index : 29.71 kg/m2 KITTY BAILEY LPN - 05/16/2016 10:29 CDT General Info Information Given By : Patient Languages : Surinamese Is Patient Female and 13-50 no hysterectomy : No KITTY BAILEY LPN - 05/16/2016 10:29 CDT Subjective Pain Symptoms : No KITTY BAILEY LPN - 05/16/2016 10:29 CDT Dependent Habits Exposure to Tobacco Smoke : Other: quit in 1982 Smoking Status : Former smoker Tobacco 2A : Yes Tobacco Use/Currently Using : No Tobacco Use/Last 30 Days : No Tobacco Use/Last 12 months : No Tobacco Last Use/Year : 1982 KITTY BAILEY LPN - 05/16/2016 10:29 CDT Caffeine Use Grid Caffeine Use : Current Type : Chocolate, Coffee, Soft drinks Frequency : Daily KITTY BAILEY LPN - 05/16/2016 10:29 CDT Recreational Drug Use Grid Drug Use : None KITTY BAILEY LPN - 05/16/2016 10:29 CDT Source: [facility] POWERCHART Document Id: [id number] CDT!40 Kitty Tang LMauroP.N. - 05/16/2016 10:28 AM CDT Obstructive Sleep Apnea Obstructive Sleep Apnea Entered On: 05/16/2016 10:28 CDT Performed On: 05/16/2016 10:28 CDT by KITTY BAILEY LPN AGNIESZKA Screening Known Obstructive Sleep Apnea : Patient diagnosed with AGNIESZKA; DOES NOT USE sleep machine AGNIESZKA Score : No qualifying data available. AGNIESZKA Results : No qualifying data available. KITTY BAILEY LPN - 05/16/2016 10:28 CDT Source: [facility] Document Id: [id number] CDT!5 Kitty Tang L.P.NMauro - 05/16/2016 10:27 AM CDT Adult Dietitian Therapeutic Intake/History Adult Dietitian Therapeutic Intake/History Entered On: 05/16/2016 10:28 CDT Performed On: 05/16/2016 10:27 CDT by KITTY BAILEY LPN Intake Chief Complaint : pre op KITTY BAILEY LPN - 05/16/2016 10:27 CDT General Info Information Given By : Patient Languages : Surinamese Is Patient Female and 13-50 no hysterectomy : No KITTY BAILEY LPN - 05/16/2016 10:27 CDT Subjective Pain Symptoms : No KITTY BAILEY LPN - 05/16/2016 10:27 CDT Dependent Habits Exposure to Tobacco Smoke : Other: quit in 1982 Smoking Status : Former smoker Tobacco 2A : Yes Tobacco Use/Currently Using : No Tobacco Use/Last 30 Days : No Tobacco Use/Last 12 months : No Tobacco Last Use/Year : 1982 KITTY BAILEY LPN - 05/16/2016 10:27 CDT Caffeine Use Grid Caffeine Use : Current Type : Chocolate, Coffee, Soft drinks Frequency : Daily KITTY BAILEY LPN - 05/16/2016 10:27 CDT Recreational Drug Use Grid Drug Use : None KITTY BAILEY [employer] - 05/16/2016 10:27 CDT Source: [facility] POWERCHART Document Id: [id number] CDT!25 documented in this encounter Plan of Treatment Not on filedocumented as of this encounter Procedures Procedure Name Priority Date/Time Associated Diagnosis Comme nts ECG Routine 05/16/2016 10:16 AM Results for this CDT procedure are i n the results section. DX CHEST AP OR PA Routine 05/16/2016 9:33 AM Resu lts for this AND LATERAL 2 VIEWS CDT procedur e are in the results section. documented in this encounter Results ECG 12 Lead (05/16/2016 10:16 AM CDT) Specimen (Source) Anatomical Collection Method Collection Time Re ceived Time Location / / Volume Laterality 05/16/2016 10:16 AM CDT [email or web address] SYSTEM - 05/16/2016 10:16 AM CDT Test Reason : PREOP Blood Pressure : / mmHG Vent. Rate : 082 BPM ? Atrial Rate : 082 BPM ?? P-R Int : 178 ms ?QRS D ur : 094 ms ?QT Int : 388 ms ? P-R-T Axe s : 056 -18 036 degrees ?? QTc Int : 453 ms Normal sinus rhythm Normal ECG No previous ECGs available Referred By: PIERO PEREA ? Confirmed By:LEBRON TRINIDAD MD Procedure Note Provider, Pato Chase - 02/13/2017F ormatting of this note might be different from the original. Test Reason : PREOP Blood Pressure : / mmHG Vent. Rate : 082 BPM Atrial Rate : 082 B PM P-R Int : 178 ms QRS Dur : 094 ms QT Int : 388 ms P-R-T Axes : 056 -18 03 6 degrees QTc Int : 453 ms Normal sinus rhythm Normal ECG No previous ECGs available Referred By: PIERO PEREA Confirmed By:LEBRON FAITH MD Lebron Faith M.D. ECG ORDERABLES Performing Organization Address City/State/ZIP Code Phon e Number [facility] [address] [place] [id number] DX Chest Anterior Posterior or Posterior Anterior and Lateral 2 Views (05/16/2016 9:33 AM CDT) Anatomical Region Laterality Modality Chest N/A Radiographic Imaging Specimen (Source) Anatomical Collection Method Collection Time Re ceived Time Location / / Volume Laterality 05/16/2016 9:33 AM CDT Addenda Addendum by Provider, Pato Chase 05/16/2016 9:33 AM CDT RAD^^^OW XR Chest 2 Views 05/16/2016 09:33:02 Impressions 05/16/2016 10:13 AM CDT Negative chest. FINDINGS: ??Lungs clear. Normal heart si ze and pulmonary vascularity. No pleural effusion. No change from prio r exam. AGE: 70 years-oldNone. Narrative 05/16/2016 10:13 AM CDT EXAM: XR Chest 2 Views INDICATION: preop COMPARISON: 11/06/2015. Procedure Note Agata Diehl M.D. / Provider, Sahil jordan M.D. - 02/01/2017 EXAM: XR Chest 2 Views INDICATION: preop COMPARISON: 11/06/2015. IMPRESSION: Negative chest. FINDINGS: Lungs clear. Normal heart size and pulmonary vascularity. No pleural effusion. No change from prio r exam. AGE: 70 years-oldNone. Historical Provider IMG DIAGNOSTIC IMAGING PROCE AGUSTO documented in this encounter Visit Diagnoses Not on filedocumented in this encounter Additional Health Concerns Assessment Noted Time PHQ-9 Depression Total Score: 6 01/31/2015 12:28 PM CD T documented as of this encounter
--- OUTSIDE RECORDS SUMMARY | 2022-05-21 11:37 | XMS_ITS | Encounter Summary ---
:1945 Author Organization [facility] Address [address] [place] [address] Care Team Providers Name Role Phone Unavailable Primary Care Provider Unavailable Encounter Details Date Type Department Care Team Description 05/07/2016 Hospital Encounter HX [facility] Piero Grier M.D. [address] [place], [place] [phone] (Wo rk) Social History [...] do you attend jewish or Never 2021 amish services? Do you [...] Notes Miscellaneous - Piero Weiss M.D. - 05/07/2016 5:30 PM CDT Addendum by MARTI SANCHEZ LPN on May 13, 2016 08:36:11 CDT patient seen by urology on 05/09/2016 with a future appt scheduled Addendum by MARTI SANCHEZ LPN on May 10, 2016 16:44:35 CDT From: MARTI SANCHEZ LPN To: LAWSON Roy Nurse; Sent: 05/10/2016 16:44:35 CDT Subject: FW: Addendum by MARTI SANCHEZ LPN on May 10, 2016 16:44:26 CDT attempted to contact patient message left to return phone call From: PIERO WEISS MD To: MARTI SANCHEZ LPN; Sent: 05/07/2016 17:30:39 CDT Please inform Jonnathan that there was a mix up with scheduling and that we're trying to get him in to urology [facility] Source: [facility] POWERCHART Document Id: [id number] Miscellaneous - Piero Weiss M.D. - 05/07/2016 5:26 PM CDT Addendum by PIERO WEISS MD on May 08, 2016 21:14:48 CDT From: PIERO WEISS L MD To: PRUDENCE GASPAR LPN; Sent: 05/08/2016 21:14:48 CDT Subject: RE: Thank you. Addendum by PRUDENCE GASPAR LPN on May 08, 2016 10:41:31 CDT From: PRUDENCE GASPAR LPN To: PIERO WEISS MD; Sent: 05/08/2016 10:41:31 CDT Subject: RE: Patient is scheduled to be seen by Dr. Prasanna Bernal 05/09/16 at 8:45 a.m. From: PIERO WEISS MD To: PRUDENCE GASPAR LPN; Sent: 05/07/2016 17:26:34 CDT Prudence, This patient is having gross hematuria and has a possible mass in the bladder on Urogram. Can he be seen [facility] in [place]? Source: [facility] POWERCHART Document Id: [id number] documented in this encounter Plan of Treatment Not on filedocumented as of this encounter Procedures Procedure Name Priority Date/Time Associated Diagnosis Comme nts BASIC METABOLIC Routine 05/07/2016 8:13 AM Result s for this PANEL, S/P CDT procedure are i n the results section. documented in this encounter Results (ABNORMAL) BMP (Basic Metabolic Panel) (05/07/2016 8:13 AM CDT) P athologist Signature Sodium, S 139 135 - 145 POWERCHART [facility] Potassium, S 4.3 3.6 - 5.2 POWERCHART [facility]MO[facility] Chloride, S 103 98 - 107 POWERCHART [facility] CO2 Total 20 (L) 22 - 29 POWERCHART [facility] BUN (Blood Urea 25 (H) 8 - 24 POWERCHART Nitrogen), S MGDL Creatinine 1.11 0.80 - POWERCHART 1.30 MGDL Calcium, Total, 9.6 8.8 - 10.3 POWERCHART S MGDL Anion Gap 16 (H) 7 - 15 POWERCHART [facility]MOLL HXeGFR (MDRD) >60 >=60 POWERCHART [id number] eGFR >60 >=60 POWERCHART Black/ [id number] [place] Glucose 166 (H) 70 - 139 POWERCHART MGDL Specimen (Source) Anatomical Collection Method Collection Time Re ceived Time Location / / Volume Laterality Blood 05/07/2016 8:13 AM CDT Piero Alejandro M.D. LAB BLOOD ADD-ON Performing Organization Address City/State/ZIP Code Phon e Number POWERCHART documented in this encounter Visit Diagnoses Not on filedocumented in this encounter Additional Health Concerns Assessment Noted Time PHQ-9 Depression Total Score: 6 01/31/2015 12:28 PM CD T documented as of this encounter
--- OUTSIDE RECORDS SUMMARY | 2022-05-21 11:37 | XMS_ITS | Encounter Summary ---
:1945 Author Organization [facility] Address [address] [place] [address] Care Team Providers Name Role Phone Unavailable Primary Care Provider Unavailable Encounter Details Date Type Department Care Team Description 08/12/2016 Hospital Encounter HX [facility] Cesar Fernandes, URGENTCAR P.A.-C. [address] , [address] [id number] (Wo rk) Social History Tobacco Use Types [...] do you attend advent or Never 2021 sabianism services? Do you [...] Sign Reading Time Taken Comments Blood Pressure 145/76 08/12/2016 10:41 AM BLOCK SAWYER Pulse 85 08/12/2016 10:41 AM BLOCK SAWYER Temperature - - Respiratory Rate 24 08/12/2016 10:41 AM BLOCK SAWYER Oxygen Saturation - - Inhaled Oxygen Concentration - - Weight 109 kg (239 lb 10.2 oz) 08/12/2016 10:41 AM BLOCK SAWYER Height - - Body Mass Index 30.75 05/16/2016 10:29 AM CDT documented in this [...] documented as of this encounter Progress Notes Cesar Brock P.A.-C. - 08/12/2016 9:45 AM CST [id number] CHIEF COMPLAINT/REASON FOR VISIT Productive cough, sinus pressure. HISTORY OF PRESENT ILLNESS This is a 71-year-old male who has had a productive cough for 2 months. He has home prednisone prescription that he gets from the [place] that he started taking his burst of steroids as he has a history of wheezing and is actually on a daily inhaler, Symbicort, and has a rescue inhaler, albuterol, which hehas not used. He also has a nebulizer, but he has not used that either. He denies any fevers. VITAL SIGNS Temp 36.6, heart rate 85, respiratory rate 24, blood pressure 145/76, SpO2 99%. PHYSICAL EXAMINATION GENERAL: Alert and oriented x3. No distress. HEENT: Eyes nonicteric. Noninjected. No discharge. Ears: Bilateral tympanic membranes pearly pena. No loss of landmarks, erythema, or bulging. Nose: Nasal turbinates pink, moist. Oropharynx: Uvula midline. Tonsillitis not seen. NECK: No cervical lymphadenopathy noted. LUNGS: Bilateral wheezes with lower base rhonchi. HEART: Regular rate and rhythm. ALLERGIES Penicillin, sulfa drugs, doxycycline. IMPRESSION/REPORT/PLAN Upper respiratory infection. Patient may have a combination of pneumonia and bronchitis and I want him to start using his nebulizers and continue with the prednisone quick taper that he is on. I will put him on azithromycin as well and have him follow up with his primary doctor if symptoms do not improve. Cesar Brock P.A.-C./phnog Electronically Signed By: CESAR BROCK PA-C On: 08/13/2016 02:54 PM Source: [facility] MHSDOLBEYNONRADSYS Document Id: [id number] K SAWYER documented in this encounter Miscellaneous Notes Miscellaneous - Cesar Brock P.A.-C. - 08/12/2016 10:58 AM CST Ambulatory Patient Summary [facility] [address] [place], [place] [id number] Visit Information Name: JONNATHAN COSTA [facility] Number: [id number] Current Date: 08/12/2016 10:58:21 Physicians Attending Provider: UNKNOWN1, PROVIDER Primary Care Provider: PIERO ROJAS MD JONNATHAN [...] Tablet(s), Oral, once a day (at bedtime) azithromycin (azithromycin 250 mg oral tablet) 2 tablets on day 1, then 1 tablet on days 2-5, Oral, as directed x 5 day(s) New Routed to [facility] [address] [place] [address] budesonide-formoterol (budesonide-formoterol 160 mcg-4.5 mcg/inh inhalation aerosol) [...] the Following Medications: Medication list as of 08-12-16 10:58 Attention: If you have any medications at home that are not on this list, DO NOT take them until youcontact your provider for clarification. Give a copy of your medication list to your primary care provider. Update your medication list any time medications or doses are changed and carry your medication list at all times in case of emergency. Electronically Signed By: CESAR BROCK PA-C Signed On:12-AUG-2016 10:58:18 Your Allergies & Intolerances Substance Reaction Symptoms Category Comments doxycycline severe rash Drug penicillin Drug sulfa drugs Drug Your Problem List Problem Status Onset Comments Diabetes mellitus type II Active 11/05/1996 DM Type2 Neuropathy Active 08/24/2008 Hypertension Active Hypercholesterolemia* Active Cancer Bladder Lateral Wall Active Hyperplasia Prostate (BPH) Localized With Obstruction Active Your Upcoming Appointments Date Time Location Provider 08/19/2016 08:15 [facility] 08/29/2016 10:15 [facility] Grace Rehman CNP Attention: Contact your local Clinic if further [...] if you dont have one. Go to [email or web address] and click on Create Your Account. Then, follow the directions to complete the online form. Youll be asked for your [facility] number which you can find at the top of this document. Your Goals/Additional instructions: Source: [facility] POWERCHART Document Id: [id number] K SAWYER Miscellaneous - Cesar Brock P.A.-C. - 08/12/2016 10:58 AM CST Ambulatory Discharge Medication List [facility] [address] [place], [place] [id number] Visit Information Name: JONNATHAN COSTA [facility] Number: [id number] Current Date: 08/12/2016 10:58:20 Attending Provider: UNKNOWN1, PROVIDER Primary Care Provider: PIERO ROJAS MD JONNATHAN [...] Tablet(s), Oral, once a day (at bedtime) azithromycin (azithromycin 250 mg oral tablet) 2 tablets on day 1, then 1 tablet on days 2-5, Oral, as directed x 5 day(s) New Routed to [facility] [address] [place] [address] budesonide-formoterol (budesonide-formoterol 160 mcg-4.5 mcg/inh inhalation aerosol) [...] the Following Medications: Medication list as of 08-12-16 10:58 Attention: If you have any medications at home that are not on this list, DO NOT take them until youcontact your provider for clarification. Give a copy of your medication list to your primary care provider. Update your medication list any time medications or doses are changed and carry your medication list at all times in case of emergency. Electronically Signed By: CESAR BROCK PA-C Signed On:12-AUG-2016 10:58:18 Additional Information: Source: [facility] POWERCHART Document Id: [id number] K SAWYER Miscellaneous - Opal Banda, L.P.N. - 08/12/2016 10:41 AM CST Adult Certified Hearing Instrument Dispenser Intake/History Adult Certified Hearing Instrument Dispenser Intake/History Entered On: 08/12/2016 10:46 BLOCK SAWYER Performed On: 08/12/2016 10:41 BLOCK SAWYER by OPAL BANDA FIRE PREVENTION INSPECTOR Intake Chief Complaint : Productive cough, clesar to light yellow, sinus pressure Onset of Symptoms : 2 months Ambulatory Intake Additional Information : T[facility], ithelped History of Agent [place] per patient Temperature Oral : 36.6 DegC(Converted to: 97.9 DegF) Peripheral Pulse Rate : 85 /min Respiratory Rate : 24 /min (HI) Systolic Blood Pressure : 145 mmHg (HI) Diastolic Blood Pressure : 76 mmHg NIBP Mean : 99 mmHg BP Location : Right upper extremity Blood Pressure Cuff Size : Large SpO2 : 99 % Oxygen Therapy : Room air Actual Weight : 108.7 kg(Converted to: 239 lb 10 oz) Dosing Weight Clinic : 108.7 kg OPAL BANDA [facility] - 08/12/2016 10:41 BLOCK SAWYER General Info Information Given By : Patient Languages : Vietnamese Is Patient Female and 13-50 no hysterectomy : No OPAL BANDA [facility] - 08/12/2016 10:41 BLOCK SAWYER Subjective Pain Symptoms : No OPAL BANDA [facility] 08/12/2016 10:41 BLOCK SAWYER Dependent Habits Exposure to Tobacco Smoke : Other: quit in 1982 Smoking Status : Former smoker Tobacco 2A : Yes Tobacco Use/Currently Using : No Tobacco Use/Last 30 Days : No Tobacco Use/Last 12 months : No Tobacco Last Use/Year : 1982 OPAL BANDA [facility] - 08/12/2016 10:41 BLOCK SAWYER Caffeine Use Grid Caffeine Use : Current Type : Chocolate, Coffee, Soft drinks Frequency : Daily OPAL BANDA [facility] - 08/12/2016 10:41 BLOCK SAWYER Recreational Drug Use Grid Drug Use : None OPAL BANDA [facility] 08/12/2016 10:41 BLOCK SAWYER Source: [employer] Document Id: [id number] BLOCK SAWYER!39 K SAWYER documented in this encounter Plan of Treatment Not on filedocumented as of this encounter Visit Diagnoses Not on filedocumented in this encounter Additional Health Concerns Assessment Noted Time PHQ-9 Depression Total Score: 6 01/31/2015 12:28 PM CD T documented as of this encounter
--- OUTSIDE RECORDS SUMMARY | 2022-05-21 11:37 | XMS_ITS | Encounter Summary ---
:1945 Author Organization [facility] Address [address] [place] [address] Care Team Providers Name Role Phone Unavailable Primary Care Provider Unavailable Encounter Details Date Type Department Care Team Description 05/09/2016 Hospital Encounter HX NO MAPPING Virginia Bernal M.D. [address] [place], [place] [phone] (Wo rk) Social History [...] do you attend latter-day or Never 2021 protestant services? Do you [...] Miscellaneous - Conversion, Historical Provider Ser - 05/09/2016 11:59 PM CDT Coding Summary-Paper Based CODING DATE: 05/20/2016 FINAL [facility] STATUS: * Discharged to Home or Self Care PAYOR: Medicare Advantage ADMIT DX: REASON FOR VISIT DX: FINAL DX: PRINCIPAL: R31.0 Gross hematuria SECONDARY: PROCEDURES DOCTOR NAME DATE NOTE: The code number assigned matches the documented diagnosis and / or procedure in the patient's chart. However, the narrative phrase printed from the coding software may appear abbreviated, or result in slightly different terminology. Coded By: LUIS EDUARDO TREVIZO Date Saved: 05/20/2016 10:14 am Source: [employer] Document Id: [id number] documented in this encounter Plan of Treatment Not on filedocumented as of this encounter Visit Diagnoses Not on filedocumented in this encounter Additional Health Concerns Assessment Noted Time PHQ-9 Depression Total Score: 6 01/31/2015 12:28 PM CD T documented as of this encounter
--- OUTSIDE RECORDS SUMMARY | 2022-05-21 11:37 | XMS_ITS | Encounter Summary ---
:1945 Author Organization [facility] Address [address] [place] [address] Care Team Providers Name Role Phone Unavailable Primary Care Provider Unavailable Encounter Details Date Type Department Care Team Description 05/27/2016 Hospital Encounter HX [facility] Ailyn Bernal M.D. [address] [place] [phone] (Wo rk) Social History Tobacco [...] do you attend spiritism or Never 2021 adventism services? Do you [...] Sign Reading Time Taken Comments Blood Pressure 98/56 05/27/2016 10:01 AM CDT Pulse 100 05/27/2016 9:39 AM CDT Temperature - - Respiratory Rate 16 05/27/2016 9:39 AM CDT Oxygen Saturation - - Inhaled [...] encounter Progress Notes Ailyn Bernal M.D. - 05/27/2016 9:27 AM CDT [id number] CHIEF COMPLAINT/REASON FOR VISIT bladder tumor. HISTORY OF PRESENT ILLNESS This is a 70-year-old male who recently presented with gross painless hematuria. The evaluation including cystoscopy and CT scan demonstrated a tumor arising on the right lateral wall. It was slightly lateral to the right ureteral orifice and did not involve the ureteral orifice. This was resected on May 22 and he is now here for followup. Outside of catheter related symptoms he is doing very well. Catheter was removed and he passed his voiding trial. Surgical pathology demonstrates transitional cell carcinoma involving the right lateral wall which is noninvasive and low-grade. Random bladder biopsies obtained elsewhere in the bladder are uniformly negative. IMPRESSION/REPORT/PLAN 1. 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 2. Benign prostatic hypertrophy with lower urinary tract symptoms and trilobar hypertrophy. The patient's systolic blood pressure is somewhat low today although he is not symptomatic. Has multiple questions regarding whether or not he should stop his medications. I would note that for his benign prostatic hypertrophy he is currently on doxazosin and finasteride. At this time I would not stopthe doxazosin as I think he would have a great deal of difficulty voiding. He is due to have followup cystoscopy in 3 months. At that time we are planning to do it in the operating room in conjunction with GreenLight Photoselective Vaporization of the prostate. Within a week to 2 after completing GreenLight Photoselective Vaporization of the prostate the patient will be able to wean off of the doxazos in from the point of view of his lower urinary tract symptoms. Up until that time if he needs to come off of blood pressure medicines I would not alter his doxazosin dose. We discussed GreenLight Photoselective Vaporization of the prostate including review of symptoms, anticipated postoperative course, provided literature. We will tentatively schedule this toward the very end of July or beginning of August. Ailyn Bernal M.D./phong cc: Piero Hinton M.D. [facility] in [address] [address] Electronically Signed By: AILYN BERNAL MD On: 06/11/2016 07:56 AM Source: [facility] MHSDOLBEYNONRADSYS Document Id: [id number] documented in this encounter Miscellaneous Notes Miscellaneous - Ailyn Bernal M.D. - 05/27/2016 11:40 AM CDT Ambulatory Patient Summary [facility] [address] [place] [id number] Visit Information Name: BETH COSTA [facility] Number: [id number] Current Date: 05/27/2016 11:40:56 Physicians Attending Provider: AILYN BERNAL MD Primary [...] the Following Medications: Medication list as of 05-27-16 11:40 Attention: If you have any medications at [...] Electronically Signed By: AILYN BERNAL MD Signed On:27-MAY-2016 11:40:45 Your Allergies & Intolerances Substance Reaction Symptoms Category Comments doxycycline severe rash Drug penicillin Drug sulfa drugs Drug Your Problem List Problem Status Onset Comments Diabetes mellitus type II Active 11/05/1996 DM Type2 Neuropathy Active 08/24/2008 Hypertension Active Hypercholesterolemia* Active Cancer Bladder Lateral Wall Active Hyperplasia Prostate (BPH) Localized With Obstruction Active Your Upcoming Appointments Date Time Location Provider 08/19/2016 08:15 [facility] Roy MD 08/29/2016 08:15 [facility] Ailyn Bernal MD Attention: Contact your [...] if you dont have one. Go to [email or web address] and click on Create Your Account. Then, follow the directions to complete the online form. Youll be asked for your [facility] number which you can find at the top of this document. Your Goals/Additional instructions: Source: [facility] POWERCHART Document Id: [id number] Miscellaneous - Ailyn Bernal M.D. - 05/27/2016 11:40 AM CDT Ambulatory Discharge Medication List [address] [id number] Visit Information Name: BETH COSTA [facility] Number: [id number] Visit Date: 05/27/2016 11:40:55 Attending Provider: AILYN BERNAL MD Primary Care [...] the Following Medications: Medication list as of 05-27-16 11:40 Attention: If you have any medications at [...] Electronically Signed By: AILYN BERNAL MD Signed On:27-MAY-2016 11:40:45 Additional Information: Source: [facility] POWERCHART Document Id: [id number] Miscellaneous - Nayeli Nava CMauroMJeff. - 05/27/2016 10:31 AM CDT Care Coordination Message From: NAYELI NAVA [facility] To: PIERO ROJAS MD; Sent: 05/27/2016 10:31:13 CDT ! Subject: Care Coordination Message Patient was seen in [place], Urology. He is concerned about his blood pressure medication and whether or not it is necessary for him to continue taking it. He presents today a blood pressure of 98/56 and feeling light headed. Patient would like a call back from you or maybe a follow up appointment topossbly discontiue the medication or simply adjust the dosage. Please contact patient at [phone]. Source: [facility] POWER[facility] Document Id: [id number] Electronically signed by Karen [facility] Record Filing Clerk [id number] at 02/23/2017 1:43 AM CDT Miscellaneous - Becky Hager L.P.N. - 05/27/2016 10:01 AM CDT Ambulatory Vitals Height Weight Ambulatory Vitals Height Weight Entered On: 05/27/2016 10:01 CDT Performed On: 05/27/2016 10:01 CDT by BECKY HAGER LPN Vitals/Ht/Wt Systolic Blood Pressure : 98 mmHg Diastolic Blood Pressure : 56 mmHg NIBP Mean : 70 mmHg BP Location : Right upper extremity Blood Pressure Cuff Size : Regular BECKY HAGER LPN - 05/27/2016 10:01 CDT [facility] Document Id: [id number] CDT!7 Miscellaneous - Becky Hager L.P.N. - 05/27/2016 9:39 AM CDT Adult Fuel Agent Intake/History Adult Fuel Agent Intake/History Entered On: 05/27/2016 9:39 CDT Performed On: 05/27/2016 9:39 CDT by BECKY HAGER LPN Intake Chief Complaint : post op follow up Temperature Core : 36.4 DegC(Converted to: 97.5 DegF) (LOW) Peripheral Pulse Rate : 100 /min Respiratory Rate : 16 /min Systolic Blood Pressure : 120 mmHg Diastolic Blood Pressure : 56 mmHg NIBP Mean : 77 mmHg BP Location : Right upper extremity Blood Pressure Cuff Size : Regular BECKY HAGER LPN - 05/27/2016 9:39 CDT General Info Information Given By : Patient Preferred Communication Mode : Verbal Languages : Danish Is Patient Female and 13-50 no hysterectomy : No BECKY HAGER LPN - 05/27/2016 9:39 CDT Subjective Pain Symptoms : BECKY Centeno LPN - 05/27/2016 9:39 CDT Dependent Habits Exposure to Tobacco Smoke : Other: quit in 1982 Smoking Status : Former smoker Tobacco 2A : Yes Tobacco Use/Currently Using : No Tobacco Use/Last 30 Days : No Tobacco Use/Last 12 months : No Tobacco Last Use/Year : 1982 ALLEYJIMBOJuana Arias LPN - 05/27/2016 9:39 CDT Caffeine Use Grid Caffeine Use : Current Type : Chocolate, Coffee, Soft drinks Frequency : Daily ALLEYJIMBOJuana Arias LPN - 05/27/2016 9:39 CDT Recreational Drug Use Grid Drug Use : None ALLEYBECKY RUIZ Juana SOLIS - 05/27/2016 9:39 CDT [facility] Document Id: [id number] CDT!34 Miscellaneous - Ailyn Bernal M.D. - 05/23/2016 8:21 AM CDT RE: *General Message Document Contains Addenda Addendum by RODERICK THOMAS LPN on May 24, 2016 17:30:47 CDT Patient was informed was okay to ride not drive but needed to get out of vehicle once an hour to walk to prevent any blood clots patient was informed of symptoms to look out for. From: AILYN BERNAL MD To: RODERICK THOMAS LPN; Sent: 05/23/2016 08:21:00 CDT Subject: RE: *General Message She can drive, he can ride. No problem. Make sure to get up a walk at least once every two hours. From: RODERICK THOMAS LPN To: AILYN BERNAL MD; Sent: 05/23/2016 08:12:22 CDT Subject: *General Message Patient called worried about if he should drive with his to [place], [place] about 200 miles away. Patient read in his instructions not to drive long distances and was wondering if this drive would effect his bladder biopsy at all. [facility] Document Id: [id number] documented in this encounter Plan of Treatment Not on filedocumented as of this encounter Visit Diagnoses Not on filedocumented in this encounter Additional Health Concerns Assessment Noted Time PHQ-9 Depression Total Score: 6 01/31/2015 12:28 PM CD T documented as of this encounter
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
--- OUTSIDE RECORDS SUMMARY | 2022-05-21 11:37 | XMS_ITS | Encounter Summary ---
:1945 Author Organization [facility] Address [address] [place] [address] Care Team Providers Name Role Phone Unavailable Primary Care Provider Unavailable Encounter Details Date Type Department Care Team Description 08/29/2016 Hospital Encounter [facility]X [facility] Lo Rehman, FAROOQ, R.N. [address] [place] [address] (Wo rk) Social History Tobacco [...] do you attend nondenominational or Never 2021 restorationism services? Do you [...] Sign Reading Time Taken Comments Blood Pressure 132/80 08/29/2016 10:45 AM PRODUCT MANAGEMENT MANAGER Pulse 80 08/29/2016 10:45 AM PRODUCT MANAGEMENT MANAGER Temperature - - Respiratory Rate - - [...] documented as of this encounter Progress Notes Raegan Rehman, FAROOQ, R.N. - 08/29/2016 10:06 AM CST UROL-LE CHIEF COMPLAINT/REASON FOR VISIT BPH status post GreenLight PVP. HISTORY OF PRESENT ILLNESS Jonnathan is a 71-year-old male here today for a 1-day postoperative visit status post GreenLight PVP. This occurred on August [address] Bernal. He tolerated the procedure well. He had a good nightlast night. He is looking forward to having his catheter out. He slept overnight for approximately 4hours in his chair. He is not having any pain at this time. MEDICATIONS Reviewed today per EMR. ALLERGIES Reviewed today per EMR. PAST MEDICAL/SURGICAL HISTORY Reviewed today per EMR. VITAL SIGNS Temperature 36.6, heart rate 80, respiratory rate 20, blood pressure 132/80. Not a tobacco user. PHYSICAL EXAMINATION GENERAL: Patient is a well-developed, well-nourished, well-groomed 71-year-old male in no acute distress. He is alert, cooperative and oriented x3. HEAD: Normal appearance. No evidence of abnormalities. NECK: Symmetrical and supple. CARDIAC: Regular rate, regular rhythm. RESPIRATORY: Respirations unlabored. Normal respiratory rate, normal respiratory movement. ABDOMEN: Soft, nontender, nondistended. EXTREMITIES: Warm without edema and ulcerations. DIAGNOSTICS Patient's bladder is filled through his catheter. Catheter is then removed. Patient voided 38 mL over 12 seconds. Peak was 4 mL/sec. Mean was 3 mL/sec. Postvoid residual 233 mL. IMPRESSION/REPORT/PLAN BPH with urinary retention status post GreenLight photoselective vaporization of the prostate. At this time we had Jonnathan come back later in the afternoon to do another uroflow and postvoid residual. Second uroflow and postvoid residual he was able to void 163 mL over 21 seconds with a peak 17 mL/sec, mean 7 mL/sec. Postvoid residual 38 mL. At this time he is doing quite well. He is emptying his bladder well. We discussed the importance of him not lifting more than 20 pounds for the first month following surgery. He will watch the color of his urine. His urine will likely have some blood in it for the next 2 to 3 days. He needs to watch the color of his urine. If his urine is red he should do less activity and drink more fluids. We will see him again in clinic in 1 month. If he has questions he will contact us. All of his questions were answered today. We will see him again in clinic 1 month for a repeat uroflow and postvoid residual. Raegan Rehman N.P./phong Electronically Signed By: RAEGAN REHMAN APRN, RN On: 09/12/2016 08:21 AM Source: [facility] MHSDOLBEYNONRADSYS Document Id: [id number] UCT MANAGEMENT MANAGER documented in this encounter Miscellaneous Notes Miscellaneous - Raegan Rehman APRN, R.N. - 08/29/2016 11:22 AM PRODUCT MANAGEMENT MANAGER Ambulatory Patient Summary [facility] [address] [place], [place] [id number] Visit Information Name: JONNATHAN COSTA [facility] Number: [id number] Current Date: 08/29/2016 11:22:32 Physicians Attending Provider: RAEGAN REHMAN APRN polysilicon preparation worker Provider: PIERO ROJAS MD JONNATHAN COSTA has [...] the Following Medications: Medication list as of 08-29-16 11:22 Attention: If you have any medications at home that are not on this list, DO NOT take them until youcontact your provider for clarification. Give a copy of your medication list to your primary care provider. Update your medication list any time medications or doses are changed and carry your medication list at all times in case of emergency. Electronically Signed By: RAEGAN REHMAN APRN, RN Signed On:29-AUG-2016 11:22:17 Your Allergies & Intolerances Substance Reaction Symptoms [...] if you dont have one. Go to [email or web address] and click on Create Your Account. Then, follow the directions to complete the online form. Youll be asked for your [facility] number which you can find at the top of this document. Your Goals/Additional instructions: Source: [facility] POWERCHART Document Id: [id number] UCT MANAGEMENT MANAGER Miscellaneous - Raegan Rehman APRN, R.N. - 08/29/2016 11:22 AM PRODUCT MANAGEMENT MANAGER Ambulatory Discharge Medication List [address] [id number] Visit Information Name: JONNATHAN COSTA [facility] Number: [id number] Current Date: 08/29/2016 11:22:31 Attending Provider: RAEGAN REHMAN APRN, RN Primary Care Provider: PIERO ROJAS MD JONNATHAN [...] the Following Medications: Medication list as of 08-29-16 11:22 Attention: If you have any medications at home that are not on this list, DO NOT take them until youcontact your provider for clarification. Give a copy of your medication list to your primary care provider. Update your medication list any time medications or doses are changed and carry your medication list at all times in case of emergency. Electronically Signed By: RAEGAN REHMAN APRN, RN Signed On:29-AUG-2016 11:22:17 Additional Information: Source: [facility] POWERCHART Document Id: [id number] UCT MANAGEMENT MANAGER Miscellaneous - Prudence Peralta, L.P.N. - 08/29/2016 10:45 AM CST Adult Network Control Operators Supervisor Intake/History Adult Network Control Operators Supervisor Intake/History Entered On: 08/29/2016 10:47 PRODUCT MANAGEMENT MANAGER Performed On: 08/29/2016 10:45 PRODUCT MANAGEMENT MANAGER by PRUDENCE PERALTA LPN Intake Chief Complaint : Trial void Temperature Core : 36.6 DegC(Converted to: 97.9 DegF) Peripheral Pulse Rate : 80 /min Heart Rhythm : Regular Systolic Blood Pressure : 132 mmHg Diastolic Blood Pressure : 80 mmHg NIBP Mean : 97 mmHg BP Location : Left upper extremity Blood Pressure Cuff Size : Regular PRUDENCE PERALTA LPN - 08/29/2016 10:45 PRODUCT MANAGEMENT MANAGER General Info Information Given By : Patient Preferred Communication Mode : Verbal Languages : Slovenian Is Patient Female and 13-50 no hysterectomy : No PRUDENCE PERALTA LPN - 08/29/2016 10:45 PRODUCT MANAGEMENT MANAGER Subjective Pain Symptoms : No PRUDENCE PERALTA LPN - 08/29/2016 10:45 PRODUCT MANAGEMENT MANAGER Dependent Habits Exposure to Tobacco Smoke : Other: quit in 1982 Smoking Status : Former smoker Tobacco 2A : Yes Tobacco Use/Currently Using : No Tobacco Use/Last 30 Days : No Tobacco Use/Last 12 months : No Tobacco Last Use/Year : 1982 PRUDENCE PERALTA LPN - 08/29/2016 10:45 PRODUCT MANAGEMENT MANAGER Caffeine Use Grid Caffeine Use : Current Type : Chocolate, Coffee, Soft drinks Frequency : Daily PRUDENCE PERALTA LPN - 08/29/2016 10:45 PRODUCT MANAGEMENT MANAGER Recreational Drug Use Grid Drug Use : None PRUDENCE PERALTA LPN - 08/29/2016 10:45 PRODUCT MANAGEMENT MANAGER [facility] Document Id: [id number] PRODUCT MANAGEMENT MANAGER!34 UCT MANAGEMENT MANAGER Miscellaneous - Omi Blevins - 07/16/2016 11:01 AM CDT *General Message-panel management From: OMI BLEVINS LPN Sent: 07/16/2016 11:01:56 CDT Subject: *General Message-panel management Pt is due for fasting diabetic labs and [facility] of results to upcoming pre-op appt. Source: [facility] POWERCHART Document Id: [id number] Electronically signed by Conversion, [facility] Checker Loader [id number] at 02/23/2017 7:04 AM CDT documented in this encounter Plan of Treatment Not on filedocumented as of this encounter Visit Diagnoses Not on filedocumented in this encounter Additional Health Concerns Assessment Noted Time PHQ-9 Depression Total Score: 6 01/31/2015 12:28 PM CD T documented as of this encounter
--- OUTSIDE RECORDS SUMMARY | 2022-05-21 11:37 | XMS_ITS | Encounter Summary ---
:1945 Author Organization [facility] Address [address] [place] [address] Care Team Providers Name Role Phone Unavailable Primary Care Provider Unavailable Encounter Details Date Type Department Care Team Description 05/28/2016 Hospital Encounter HX [facility] Ewa Moya i, M.D. [address] [place] [address] (Wo rk) Social History Tobacco [...] do you attend confucianist or Never 2021 taoism services? Do you [...] Sign Reading Time Taken Comments Blood Pressure 136/72 05/28/2016 3:37 PM CDT Pulse 84 05/28/2016 3:37 PM CDT Temperature - - Respiratory Rate 16 05/28/2016 3:37 PM CDT Oxygen Saturation - - Inhaled [...] encounter Progress Notes Ewa Weiss M.D. - 05/28/2016 3:15 PM CDT [id number] CHIEF COMPLAINT/ REASON FOR VISIT Low blood pressure. HISTORY OF PRESENT ILLNESS Jonnathan is a 70 year old male who presents to the clinic today for low blood pressure. When he was seen yesterday at the [facility] for catheter removal he was noted to have a blood pressure of 98/58 mmHg and he felt lightheaded. Jonnathan would like to review his anti-hypertensive medications. He has not taken his dose of Losartan yet today. He is prescribed Losartan 150 mg daily but has only been taken 100 mg daily because he did realize that he was supposed to take 1.5 tablets. The patient denies any additional questions or concerns at this time. MEDICATIONS Post-visit Medication Reconciliation Reviewed and are as outlined in the EMR dated 05/28/2016. ALLERGIES Penicillin. Sulfa drugs. Doxycycline causes severe rash. SYSTEMS REVIEW Please see HPI for pertinent positives, otherwise rest of ROS negative. PAST MEDICAL/SURGICAL HISTORY 1. Benign prostatic hypertrophy. 2. 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 3. Hypertension. 4. Hypercholesterolemia. 5. Erectile dysfunction. 6. Pulmonary symptomatology, diagnosis at the [facility] unclear, but probably some degree of COPD. 7. Status post left cataract surgery at the [facility]. 8. Tonsillectomy. 9. Obstructive sleep apnea, prescribed CPAP therapy but is currently not using. 10. 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 Bernal. PREVENTIVE SERVICES Tobacco use: none. VITAL SIGNS TEMP: 37.3 Deg C. PULSE: 84 /min. RESP: 16 /min. SYSTOLIC: 136 mmHg. DIASTOLIC: 72 mmHg. PHYSICAL EXAMINATION GENERAL: Patient is alert and oriented times three, in no acute distress, good hygiene and is dressed appropriately. HEART: Regular rate and rhythm without murmur. LUNGS: Clear to auscultation. IMPRESSION/REPORT/PLAN 1. Episode of symptomatic low blood pressure. Will discontinue Hydrochlorothiazide today. He will remain on his current dose of Losartan 100 mg once daily, Doxazosin 4 mg once daily and Finasteride 5 mg once daily. I have requested that monitor his blood pressure for the next couple weeks and forward those readings to my office. 2. Follow up. The patient will contact the clinic with any new or worsening symptoms. This document serves as a record of services personally performed by Ewa Roy MD. It was created on their behalf by Lulu Roldan, a trained medical cost consultant. The creation of this record is based on the scribe's personal observations and the provider's statements to them. This document has been christie cked and approved by the attending provider. Ewa Hinton M.D./livia Electronically Signed By: EWA WEISS MD On: 06/29/2016 11:54 AM Source: [facility] MHSDOLBEYNONRADSYS Document Id: [id number] documented in this encounter Miscellaneous Notes Miscellaneous - Ewa Weiss M.D. - 05/28/2016 5:31 PM CDT Ambulatory Patient Summary [address] [id number] Visit Information Name: JONNATHAN COSTA [facility] Number: [id number] Current Date: 05/28/2016 17:31:20 Physicians Attending Provider: EWA WEISS MD Primary Care Provider: EWA WEISS MD JONNATHAN COSTA has been given the [...] tablet) 1 Tablet(s), Oral, once a day This is a CHANGE metformin (metformin 1000 mg oral tablet) 1 Tablet(s), Oral, two times a day with meals Stop Taking the Following Medications: predniSONE (predniSONE 10 mg oral tablet) Medication list as of 05-28-16 17:31 Attention: If you have any medications at home that are not on this list, DO NOT take them until youcontact your provider for clarification. Give a copy of your medication list to your primary care provider. Update your medication list any time medications or doses are changed and carry your medication list at all times in case of emergency. Electronically Signed By: EWA WEISS MD Signed On:28-MAY-2016 17:31:18 Your Allergies & Intolerances Substance Reaction Symptoms Category Comments doxycycline severe rash Drug penicillin Drug sulfa drugs Drug Your Problem List Problem Status Onset Comments Diabetes mellitus type II Active 11/05/1996 DM Type2 Neuropathy Active 08/24/2008 Hypertension Active Hypercholesterolemia* Active Cancer Bladder Lateral Wall Active Hyperplasia Prostate (BPH) Localized With Obstruction Active Your Upcoming Appointments Date Time Location Provider 08/19/2016 08:15 [facility] Ewa Roy MD 08/29/2016 08:15 [facility] Prasanna Bernal MD Attention: Contact your [...] if you dont have one. Go to [email or web address] and click on Create Your Account. Then, follow the directions to complete the online form. Youll be asked for your [facility] number which you can find at the top of this document. Your Goals/Additional instructions: Source: [facility] POWERCHART Document Id: [id number] Miscellaneous - Ewa Weiss M.D. - 05/28/2016 5:31 PM CDT Ambulatory Discharge Medication List [address] [id number] Visit Information Name: JONNATHAN COSTA [facility] Number: [id number] Visit Date: 05/28/2016 17:31:20 Attending Provider: EWA WEISS MD Primary Care Provider: EWA WEISS MD JONNATHAN COSTA has been given the [...] tablet) 1 Tablet(s), Oral, once a day This is a CHANGE metformin (metformin 1000 mg oral tablet) 1 Tablet(s), Oral, two times a day with meals Stop Taking the Following Medications: predniSONE (predniSONE 10 mg oral tablet) Medication list as of 05-28-16 17:31 Attention: If you have any medications at home that are not on this list, DO NOT take them until youcontact your provider for clarification. Give a copy of your medication list to your primary care provider. Update your medication list any time medications or doses are changed and carry your medication list at all times in case of emergency. Electronically Signed By: EWA WEISS MD Signed On:28-MAY-2016 17:31:18 Additional Information: Source: [facility] POWERCHART Document Id: [id number] Miscellaneous - HamiltonMarti arana, L.P.N. - 05/28/2016 3:37 PM CDT Adult Range Aide Intake/History Adult Range Aide Intake/History Entered On: 05/28/2016 15:40 CDT Performed On: 05/28/2016 15:37 CDT by MARTI HAMILTON LPN Intake Chief Complaint : blood pressure issues Temperature Core : 37.3 DegC(Converted to: 99.1 DegF) Peripheral Pulse Rate : 84 /min Respiratory Rate : 16 /min Systolic Blood Pressure : 136 mmHg Diastolic Blood Pressure : 72 mmHg NIBP Mean : 93 mmHg BP Location : Right upper extremity Blood Pressure Cuff Size : Large Weight Source : Other: patient refused weight and height stated I'm only here for my blood presure MARTI HAMILTON LPN - 05/28/2016 15:37 CDT General Info Information Given By : Patient Preferred Communication Mode : Verbal Languages : Danish Is Patient Female and 13-50 no hysterectomy : No MARTI HAMILTON LPN - 05/28/2016 15:37 CDT Subjective Pain Symptoms : Yes MARTI HAMILTON LPN - 05/28/2016 15:37 CDT Pain Scale Pain Scale Verbal 0-10 : Open MARTI HAMILTON [facility] - 05/28/2016 15:37 CDT Pain Pain Assessment Grid Pain 1 Location : Bladder Laterality : Other: spasms Intensity : 5 MARTI HAMILTON COIL MACHINE OPERATOR - 05/28/2016 15:37 CDT Dependent Habits Exposure to Tobacco Smoke : Other: quit in 1982 Smoking Status : Former smoker Tobacco 2A : Yes Tobacco Use/Currently Using : No Tobacco Use/Last 30 Days : No Tobacco Use/Last 12 months : No Tobacco Last Use/Year : 1982 MARTI HAMILTON LPN - 05/28/2016 15:37 CDT Caffeine Use Grid Caffeine Use : Current Type : Chocolate, Coffee, Soft drinks Frequency : Daily MARTI HAMILTON LPN - 05/28/2016 15:37 CDT Recreational Drug Use Grid Drug Use : None MARTI HAMILTON LPN - 05/28/2016 15:37 CDT [facility]Convergent.[employer] [facility] Document Id: [id number] CDT!43 documented in this encounter Plan of Treatment Not on filedocumented as of this encounter Visit Diagnoses Not on filedocumented in this encounter Additional Health Concerns Assessment Noted Time PHQ-9 Depression Total Score: 6 01/31/2015 12:28 PM CD T documented as of this encounter
--- OUTSIDE RECORDS SUMMARY | 2022-05-21 11:37 | XMS_ITS | Encounter Summary ---
:1945 Author Organization [facility] Address [address] [place] [address] Care Team Providers Name Role Phone Unavailable Primary Care Provider Unavailable Encounter Details Date Type Department Care Team Description 06/04/2016 Hospital Encounter HX [facility] N[facility]SE Piero Hong i, M.D. [address] [place] [address] (Wo rk) Social History Tobacco [...] do you attend islam or Never 2021 congregation services? Do you [...] Sign Reading Time Taken Comments Blood Pressure 131/67 06/04/2016 10:01 AM CDT Pulse 80 06/04/2016 10:01 AM CDT Temperature - - Respiratory [...] of this encounter Miscellaneous Notes Miscellaneous - Erica Morgan C.MJaime - 06/04/2016 10:03 AM CDT *General Message From: ERICA MORGAN CMA To: PIERO ROJAS MD; Sent: 06/04/2016 10:03:50 CDT Subject: *General Message Jonnathan was in for B/P check today. He asked me to let you know he restarted his Hydrochlorithizide after his surgery. B/P 131/67 Pulse 80 Source: [facility] Document Id: [id number] Electronically signed by Karen [facility] Centersarita Medical Artist [id number] at 02/23/2017 5:47 AM CDT Miscellaneous - Erica Morgan C.MMauroA. - 06/04/2016 10:01 AM CDT Ambulatory Vitals Height Weight Ambulatory Vitals Height Weight Entered On: 06/04/2016 10:01 CDT Performed On: 06/04/2016 10:01 CDT by ERICA MORGAN CMA Vitals/Ht/Wt Peripheral Pulse Rate : 80 /min Systolic Blood Pressure : 131 mmHg Diastolic Blood Pressure : 67 mmHg NIBP Mean : 88 mmHg BP Location : Left upper extremity Blood Pressure Cuff Size : Large ERICA MORGAN SPRINKLER IRRIGATION EQUIPMENT MECHANIC - 06/04/2016 10:01 CDT Source: [facility] [employer] Document Id: [id number] CDT!8 documented in this encounter Plan of Treatment Not on filedocumented as of this encounter Visit Diagnoses Not on filedocumented in this encounter Additional Health Concerns Assessment Noted Time PHQ-9 Depression Total Score: 6 01/31/2015 12:28 PM CD T documented as of this encounter
--- OUTSIDE RECORDS SUMMARY | 2022-05-21 11:37 | XMS_ITS | Encounter Summary ---
:1945 Author Organization [facility] Address [address] [place] [address] Care Team Providers Name Role Phone Unavailable Primary Care Provider Unavailable Encounter Details Date Type Department Care Team Description 05/08/2016 Hospital Encounter HX [facility] Piero Moya i, M.D. [address] [place] [address] (Wo rk) Social History Tobacco [...] do you attend druze or Never 2021 yarsanism services? Do you [...] Sign Reading Time Taken Comments Blood Pressure 120/72 05/08/2016 1:00 PM CDT Pulse 84 05/08/2016 1:00 PM CDT Temperature - - Respiratory Rate 16 05/08/2016 1:00 PM CDT Oxygen Saturation - - Inhaled Oxygen Concentration - - Weight 104 kg (230 lb 6.1 oz) 05/08/2016 1:00 PM CDT Height 188 cm (6' 2.02) 05/08/2016 1:00 PM CDT Body Mass Index 29.57 05/08/2016 1:00 PM CDT documented in this encounter Medications [...] metFORMIN (GLUMETZA) Take 1 tablet by 0 11/07/2021 1,000 mg 24 hr tablet mouth daily. documented as of this encounter Progress Notes Piero Weiss M.D. - 05/08/2016 12:42 PM CDT [id number] CHIEF COMPLAINT/ REASON FOR VISIT Follow up CT scan. HISTORY OF PRESENT ILLNESS Jonnathan is a 70 year old male who presents to the clinic today for follow up of CT scan. I talked to his on Friday and he did have a lot of blood in his urine. He was on a motorcycle ride with his and he initially noticed blood in his urine, where he could not see the bottom of the toilet. He had 3-4 urinations that had blood in them but then he could no longer see blood with the naked eye. We proceed with a UA, which was normal. With some further workup, we also checked his chemistries, in which his kidneys were not functioning great, so we had him hydrate well and redrew the labs and his kidney function improved. He is also on prison anticoagulation. His CT did show marked prostate enlargement. They also saw a thickened area on the side of the bladder wall. Urine cytology was not remarkable for any cancer cells. Jonnathan is scheduled for a consultation with Dr. Luevano tomorrow. Jonnathan also mentions that he believes that he is allergic to the virus of a cold. He feels like his lungs are congested for about 6-8 weeks after a cold. He states that he coughs up about a ?? cup of phlegm a night. He has tried numerous inhalers and the doctor at the [facility] suggested using Prednisone. He was exposure to Agent [place] while in the service. He states that dust and hay do not bother him. He did have a cold a bit ago and he states that he has been good for about 3 days. He does not like taking Prednisone because it messes with his blood sugars so much. The patient denies any additional questions or concerns at this time. MEDICATIONS Post-visit Medication Reconciliation Reviewed and are as outlined in the EMR dated 05/08/2016. ALLERGIES Penicillin. Sulfa drugs. Doxycycline causes severe rash. SYSTEMS REVIEW Please see HPI for pertinent positives, otherwise rest of ROS negative. PAST MEDICAL/SURGICAL HISTORY 1. Benign prostatic hypertrophy. 2. Diabetes mellitus type 2. 3. Hypertension. 4. Hyperlipidemia type II-B. 5. Erectile dysfunction. 6. Pulmonary symptomatology, diagnosis at the [facility] unclear, but probably some degree of COPD. 7. Status post left cataract surgery at the [facility]. 8. Tonsillectomy. 9. AGNIESZKA, prescribed CPAP therapy but is currently not using. PREVENTIVE SERVICES Tobacco use: none. VITAL SIGNS HEIGHT: 188 cm. WEIGHT: 104.5 kg. BMI: 29.57 kg/m2. TEMP: 36.5 Deg C. PULSE: 84 /min. RESP: 16 /min. SYSTOLIC: 120 mmHg. DIASTOLIC: 72 mmHg. PHYSICAL EXAMINATION GENERAL: Patient is alert and oriented times three, in no acute distress, good hygiene and is dressed appropriately. IMPRESSION/REPORT/PLAN 1. Gross hematuria with bladder wall thickening, cannot rule out malignancy. He has an appointment scheduled with Dr. Luevano tomorrow for further evaluation and management. 2. Renal insufficiency. I was concerned about this in the setting of CT with contrast, although follow up creatinine has improved. We will continue to monitor. 3. Follow up: The patient will contact the clinic with any new or worsening symptoms. This document serves as a record of services personally performed by Piero Roy MD. It was created on their behalf by Karen Givens, a trained medical technologist chemistry. The creation of this record is based on the scribe's personal observations and the provider's statements to them. This document has been ch ecked and approved by the attending provider. Piero Hinton M.D./ Electronically Signed By: PIERO WEISS MD On: 05/11/2016 12:01 PM Source: [facility] [email or web address] Document Id: [id number] documented in this encounter Miscellaneous Notes Miscellaneous - Piero Weiss M.D. - 05/11/2016 11:44 AM CDT Ambulatory Patient Summary [address] [id number] Visit Information Name: JONNATHAN COSTA [facility] Number: [id number] Current Date: 05/11/2016 11:44:18 Physicians Attending Provider: PIERO WEISS MD Primary Care Provider: PIERO WEISS MD JONNATHAN COSTA has been given [...] the Following Medications: Medication list as of 05-11-16 11:44 Attention: If you have any medications at home that are not on this list, DO NOT take them until youcontact your provider for clarification. Give a copy of your medication list to your primary care provider. Update your medication list any time medications or doses are changed and carry your medication list at all times in case of emergency. Electronically Signed By: PIERO WEISS MD Signed On:11-MAY-2016 11:44:12 Your Allergies & Intolerances Substance Reaction Symptoms Category Comments doxycycline severe rash Drug penicillin Drug sulfa drugs Drug Your Problem List Problem Status Onset Comments Diabetes mellitus type II Active 11/05/1996 DM Type2 Neuropathy Active 08/24/2008 Hypertension Active Hypercholesterolemia* Active Your Upcoming Appointments Date Time Location Provider 05/13/2016 14:30 [facility] Urology Prasanna Luevano MD Attention: Contact your local Clinic if [...] if you dont have one. Go to [email or web address] and click on Create Your Account. Then, follow the directions to complete the online form. Youll be asked for your [facility] number which you can find at the top of this document. Your Goals/Additional instructions: Source: [facility] POWERCHART Document Id: [id number] Miscellaneous - Piero Weiss M.D. - 05/11/2016 11:44 AM CDT Ambulatory Discharge Medication List [address] [id number] Visit Information Name: JONNATHAN COSTA [facility] Number: [id number] Visit Date: 05/11/2016 11:44:16 Attending Provider: PIERO WEISS MD Primary Care Provider: PIERO WEISS MD JONNATHAN COSTA has been given [...] the Following Medications: Medication list as of 05-11-16 11:44 Attention: If you have any medications at home that are not on this list, DO NOT take them until youcontact your provider for clarification. Give a copy of your medication list to your primary care provider. Update your medication list any time medications or doses are changed and carry your medication list at all times in case of emergency. Electronically Signed By: PIERO WEISS MD Signed On:11-MAY-2016 11:44:12 Additional Information: Source: [facility] POWERCHART Document Id: [id number] Miscellaneous - Marti Hamilton, L.P.N. - 05/08/2016 1:03 PM CDT Health Assessment Health Assessment Entered On: 05/08/2016 13:06 CDT Performed On: 05/08/2016 13:03 CDT by MARTI HAMILTON LPN Health Assessment Complete Health Assessment Complete or Modified : Annual Health Assessment Annual Health Assessment Completed : Yes MARTI HAMILTON LPN - 05/08/2016 13:03 CDT Nutrition Nutrition Risk Factors by History Adult : None Home Diet : Other: high fiber & no bread Meal Pattern : 2-3 meals per day Feeding Ability : Complete independence Eating Difficulties : None Appetite : Good MARTI HAMILTON LPN - 05/08/2016 13:03 CDT Functional Living Situation : Home independently Current Daily Living Assistance : None MARTI HAMILTON LPN - 05/08/2016 13:03 CDT Dependent Habits Exposure to Tobacco Smoke : Other: quit in 1982 Smoking Status : Former smoker Tobacco 2A : Yes Tobacco Use/Currently Using : No Tobacco Use/Last 30 Days : No Tobacco Use/Last 12 months : No Tobacco Last Use/Year : 1982 Alcohol Use : Yes MARTI HAMILTON LPN - 05/08/2016 13:03 CDT Caffeine Use Grid Caffeine Use : Current Type : Chocolate, Coffee, Soft drinks Frequency : Daily MARTI HAMILTON GREIGE MENDER - 05/08/2016 13:03 CDT Recreational Drug Use Grid Drug Use : None MARTI HAMILTON LPN - 05/08/2016 13:03 CDT AUDIT Tool How Often Do You Have A Drink : Monthly or less How Many Drinks in a Day When Drinking : 1 or 2 Six or More Drinks On One Occassion : Never Audit Phase 1 Score : 1 MARTI HAMILTON GREIGE MENDER - 05/08/2016 13:03 CDT Psychosocial Domestic Abuse Concerns : None Behavioral Health Screen/Safety Assmt : No Confucianism Preference : Unknown MARTI HAMILTON GREIGE MENDER - 05/08/2016 13:03 CDT Advance Directive Advanced Directives : No Advance Directive Additional Information : No MARTI HAMILTON GREIGE MENDER - 05/08/2016 13:03 CDT Educ Needs Learning Style Preference Adult Grid Patient : Demonstration, Printed materials, Verbal explanation Family : Demonstration, Printed materials, Verbal explanation MARTI HAMILTON LPN - 05/08/2016 13:03 CDT Source: [employer] Document Id: [id number] CDT!47 Miscellaneous - Marti Hamilton, L.P.N. - 05/08/2016 1:00 PM CDT Adult French Tutor Intake/History Adult French Tutor Intake/History Entered On: 05/08/2016 13:03 CDT Performed On: 05/08/2016 13:00 CDT by MARTI HAMILTON GREIGE MENDER Intake Chief Complaint : review test results and labs prior to urology appt with dr luevano tomorrow on 05/09/2016 Temperature Core : 36.5 DegC(Converted to: 97.7 DegF) Peripheral Pulse Rate : 84 /min Respiratory Rate : 16 /min Systolic Blood Pressure : 120 mmHg Diastolic Blood Pressure : 72 mmHg NIBP Mean : 88 mmHg BP Location : Right upper extremity Blood Pressure Cuff Size : Large Height : 188 cm(Converted to: 6 ft 2 inch(es), 74 inch(es)) Actual Weight : 104.5 kg(Converted to: 230 lb 6 oz) Weight Source : Standing scale Dosing Weight Clinic : 104.5 kg Prosthetic device on during patient weight : No Clinic BSA : 2.34 Body Mass Index : 29.57 kg/m2 MARTI HAMILTON LPN - 05/08/2016 13:00 CDT General Info Information Given By : Patient Preferred Communication Mode : Verbal Languages : Ecuadorean Is Patient Female and 13-50 no hysterectomy : No MARTI HAMILTON [facility] - 05/08/2016 13:00 CDT Subjective Pain Symptoms : No MARTI HAMILTON GREIGE MENDER - 05/08/2016 13:00 CDT Dependent Habits Exposure to Tobacco Smoke : Other: quit in 1982 Smoking Status : Former smoker Tobacco 2A : Yes Tobacco Use/Currently Using : No Tobacco Use/Last 30 Days : No Tobacco Use/Last 12 months : No Tobacco Last Use/Year : 1982 MARTI HAMILTON [facility] - 05/08/2016 13:00 CDT Caffeine Use Grid Caffeine Use : Current Type : Coffee Frequency : Daily MARTI HAMILTON [facility] - 05/08/2016 13:00 CDT Recreational Drug Use Grid Drug Use : None MARTI HAMILTON LPN - 05/08/2016 13:00 CDT Source: [employer] Document Id: [id number] CDT!41 documented in this encounter Plan of Treatment Not on filedocumented as of this encounter Visit Diagnoses Not on filedocumented in this encounter Additional Health Concerns Assessment Noted Time PHQ-9 Depression Total Score: 6 01/31/2015 12:28 PM CD T documented as of this encounter
--- OUTSIDE RECORDS SUMMARY | 2022-05-21 11:37 | XMS_ITS | Encounter Summary ---
:1945 Author Organization [facility] Address [address] [place] [address] Care Team Providers Name Role Phone Unavailable Primary Care Provider Unavailable Encounter Details Date Type Department Care Team Description 08/28/2016 Hospital Encounter HX NO MAPPING Virginia Bernal M.D. [address] [place], [place] [phone] (Wo rk) Social History [...] do you attend sabianism or Never 2021 yarsani services? Do you [...] Notes Miscellaneous - Ailyn Bernal M.D. - 08/30/2016 11:27 AM CST Results Notification Document Contains Addenda Addendum by RODERICK THOMAS LPN on August 30, 2016 11:51:29 EXCHANGE ARCHITECT Patient was informed of normal results. He was also scheduled with a 3 month follow up cystoscopy. From: AILYN BERNAL MD To: Urology Nurse; Sent: 08/30/2016 11:27:50 EXCHANGE ARCHITECT ! Show up: 08/30/2016 11:27:50 EXCHANGE ARCHITECT Subject: Results Notification Actions: Notify patient of results Reminder Comments: bladder bx; no cancer. Arrange office cysto in 3 months, and PVP as already planned Results: Date Result Type Result Name 08/30/2016 9:34 Document - mdoc Surgical Pathology Report Source: [facility] POWERCHART Document Id: [id number] documented in this encounter Plan of Treatment Not on filedocumented as of this encounter Procedures Procedure Name Priority Date/Time Associated Diagnosis Comme nts SURGICAL PATHOLOGY Routine 08/28/2016 12:00 AM Re sults for this EXCHANGE ARCHITECT procedure are i n the results section. SURGICAL PATHOLOGY Routine 08/28/2016 12:00 AM Re sults for this EXCHANGE ARCHITECT procedure are i n the results section. documented in this encounter Results Pathology Surgical Pathology (08/28/2016 12:00 AM EXCHANGE ARCHITECT) Specimen (Source) Anatomical Location Collection Method / Collectio n Time Received Time / Laterality Volume 08/28/2016 Narrative [facility] - 08/30/20 16 11:27 AM EXCHANGE ARCHITECT Historical Provider LAB SURG PATH ORDERABLES Performing Organization Address City/State/ZIP Code Phon e Number [facility] NA Pathology Surgical Pathology (08/28/2016 12:00 AM EXCHANGE ARCHITECT) Specimen (Source) Anatomical Location Collection Method / Collectio n Time Received Time / Laterality Volume 08/28/2016 Narrative [facility] - 08/30/20 16 11:27 AM EXCHANGE ARCHITECT PATIENT IMAGES Choose the Image button to view related documents. Historical Provider LAB SURG PATH ORDERABLES Performing Organization Address [facility] Phon e Number [facility] NA documented in this encounter Visit Diagnoses Not on filedocumented in this encounter Additional Health Concerns Assessment Noted Time PHQ-9 Depression Total Score: 6 01/31/2015 12:28 PM CD T documented as of this encounter
--- OUTSIDE RECORDS SUMMARY | 2022-05-21 11:37 | XMS_ITS | Encounter Summary ---
:1945 Author Organization [facility] Address [address] [place] [address] Care Team Providers Name Role Phone Unavailable Primary Care Provider Unavailable Encounter Details Date Type Department Care Team Description 08/19/2016 Hospital Encounter HX [facility] FAMILYPRA Piero Forbes M.D. [address] [place], [place] [phone] (Wo rk) Social History [...] do you attend scientology or Never 2021 synagogue services? Do you [...] Reading Time Taken Comments Blood Pressure 126/64 08/19/2016 8:22 AM WOOD PATTERN MAKER Pulse 96 08/19/2016 8:22 AM WOOD PATTERN MAKER Temperature - - Respiratory Rate 16 08/19/2016 8:22 AM WOOD PATTERN MAKER Oxygen Saturation - - Inhaled Oxygen Concentration - - Weight 107 kg (235 lb 10.8 oz) 08/19/2016 8:22 AM WOOD PATTERN MAKER Height 189 cm (6' 2.41) 08/19/2016 8:22 AM WOOD PATTERN MAKER Body Mass Index 29.93 08/19/2016 8:22 AM WOOD PATTERN MAKER documented in this encounter Medications at Time [...] encounter H&P Notes Piero Weiss M.D. - 08/19/2016 8:06 AM CST [id number] Document Contains Addenda CHIEF COMPLAINT/ REASON FOR VISIT Proposed surgery date: 08/28/2016. Surgeon: Dr. Prasanna Luevano. Proposed surgery: Greenlight photo selective vaporization of the prostate. Location: [facility]. HISTORY OF PRESENT ILLNESS Beth is a 71-year-old male who presents to the clinic today for a preanesthetic medical evaluation for greenlight photo selective vaporization of the prostate. I am asked by Dr. Luevano to assess whether the patient is an adequate candidate for anesthesia. He states that he had not been feeling well and that his lungs got full again. Beth was seen at [facility] in [place] on 08/12/2016 when he was treated for a URI with Azithromycin. He feels that he has improved but continues to have a productive cough. He had been bringing up thick, stringy phlegm thathad been darker in color but is now case maker. Beth has been diagnosed with asthma and uses two puffsof his Symbicort inhaler twice daily. He does not currently have a prescription for an albuterol inhaler. Overall, Beth feels that his breathing could be better. While plowing a field Beth hit a rut and bumped his head on the top of the tractor. He has a small area of scabbing on the top of his head that is not bothering him. Beth has type II diabetes. He has labs done at the [facility]. Jelena last A1C was on 07/17/2016 with a result of 8.6. He checks his blood sugar about six times a day and finds that they run between 140 and 200. There are no further concerns at this time. MEDICATIONS Post-visit Medication Reconciliation 1. NovoLog 15 units, subcutaneous, t.i.d. with a meal. 2. Losartan 100 mg, 1 tablet, PO, daily. 3. Atorvastatin 40 mg, 1 tablet, PO, daily at bedtime. 4. Budesonide-formoterol (Symbicort) 160 mcg-4.5 mcg/inh inhalation aerosol, 2 puffs, b.i.d. 5. Finasteride 5 mg, 1 tablet, PO, daily. 6. Lantus 40 units, subcutaneously at bedtime. 7. Metformin 1,000 mg, 1 tablet, PO, b.i.d. 8. Plavix 75 mg, 1 tablet, PO, daily. 9. Doxazosin 4 mg, 1 tablet, PO, daily. 10. Albuterol CFC free 90 mcg/inh inhalation aerosol, 2 puffs b.i.d. or every 2 hours as needed for shortness of breath/wheezing, prescribed today. ALLERGIES Penicillin. Sulfa drugs. Doxycycline causes severe rash. SYSTEMS REVIEW He otherwise has no complaints. No headaches, numbness or tingling. No changes in vision or hearing.No sore throat, earache or cough. No chest pain. No abdominal pain or change in bowel habits. No hematuria or dysuria. No musculoskeletal aches or pains. No lymph node swelling. No easy bruising or blee ding. No excessive thirst or hunger. No mood or behavioral difficulties. Cardiac risk factors: Yes, hypertension and hypercholesterolemia, well controlled. Pulmonary risk factors: Yes, asthma. Sleep Apnea: Yes, currently untreated. Steroid use within the past 12 months: none Diabetes: Yes, insulin dependent type II diabetes mellitus. Bleeding risk factors: Yes, on Plavix 75 mg patient will hold prior to surgery beginning 08/21/2016. Anesthesia reactions: none Need for prophylactic antibiotics: none Beta chasidy: none The remainder of the review of systems is negative. PAST MEDICAL/SURGICAL HISTORY 1. Benign prostatic hypertrophy. 2. 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 3. Hypertension. 4. Hypercholesterolemia. 5. Erectile dysfunction. 6. Pulmonary symptomatology, diagnosis at the [facility] unclear, but probably some degree of COPD. 7. Status post left cataract surgery at the [facility]. 8. Tonsillectomy. 9. Obstructive sleep apnea, prescribed CPAP therapy but is currently not using. 10. 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 Luevano. 11. Asthma. PREVENTIVE SERVICES Tobacco use: none, former smoker. Lipid panel: 08/02/2015. Colonoscopy: 08/10/2013. Tetanus booster: 01/31/2015. Zoster vaccine: 07/13/2012. Pneumovax 23: 11/15/2008. Prevnar 13: 01/31/2015. Influenza: 07/12/2016. SOCIAL HISTORY He is . He doesn't smoke. 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 FAMILY HISTORY Mother had hypertension. There is no colon or prostate cancer in the family. There is no diabetes. Father had an [place] at age 76. Asthma and mental illness in a brother, sister. VITAL SIGNS HEIGHT: 189 cm. WEIGHT: 106.9 kg. BMI: 29.93 kg/m2. NECK CIRCUMFERENCE: 44 cm. TEMP: 36.4 Deg C. PULSE: 96 /min. RESP: 16 /min. SpO2: 96 %. SYSTOLIC: 126 mmHg. DIASTOLIC: 64 mmHg. PHYSICAL EXAMINATION GENERAL: Alert and orientated [...] with no masses. EXTREMITIES: Within normal limits. Diabetic foot exam; see quality measures. SKIN: On the top of the head there is a circular area about 2 cm in diameter with scabbing, no surrounding redness. DIAGNOSTICS: Results from EKG on 05/16/2016: Normal sinus rhythm. Normal ECG. Hemoglobin results from 05/01/2016: 11.9. UA with culture results: pending. IMPRESSION/REPORT/PLAN 1. Preoperative evaluation for surgery. The patient is cleared up to and including general anesthesia. There is no contraindication to proceeding with anesthesia and surgery as planned. He plans on returning to the clinic next week, prior to surgery for final clearance given his recent URI. UA with culture was ordered as requested by Dr. Luevano, results are pending. Further recommendations per Dr. Luevano. 2. Recent URI, improving. I would like him to return to the clinic on Friday next week for a recheckdue to his upcoming surgery. 3. Insulin dependent diabetes mellitus type II. Urine microalbumin will be checked today. 4. Asthma. Prescription was given today for an Albuterol inhaler, as above. Will refer to [facility] for further evaluation. 5. Follow up. The patient will contact the clinic with any new or worsening symptoms. ADDENDUM 08/27/2016: Mr. Costa was re-evaluated today in clinic regarding his recent URI; he is back to his baseline. Heis cleared up to and including general anesthesia and may proceed with surgery as scheduled on 08/28/[address] Luevano at the [facility]. This document serves as a record of services personally performed by Piero Roy MD. It was created on their behalf by Lulu Roldan, a trained medical hospital sales. The creation of this record is based on the scribe's personal observations and the provider's statements to them. This document has been christie cked and approved by the attending provider. Piero Hinton M.D./livia cc: [place] [address] Electronically Signed By: PIERO WEISS MD On: 09/25/2016 11:39 PM Source: [facility] MHSDOLBEYNONRADSYS Document Id: [id number] PATTERN MAKER documented in this encounter Miscellaneous Notes Telephone Encounter - Conversion, Historical Provider Ser - 08/27/2016 8:47 AM CST *Phone Message/Dr. Piero Roy Document Contains Addenda Addendum by JACQUIE HAMILTON LPN on August 27, 2016 13:03:58 WOOD PATTERN MAKER patient added to todays schedule forfinal clearance for surgical proceedure scheduled for 08/28/2016 Addendum by JACQUIE HAMILTON LPN on August 27, 2016 9:03 WOOD PATTERN MAKER Caller is: ( _ ) Patient ( _ ) Parent ( _ ) Spouse ( _ ) Child ( x ) Other: _jimmie Call back telephone number: _ Reason for Call: -_patient surgery is scheduled for tomorrow 08/28/2016 and patient needs final clearance for proceedure and insulin instructions for tonight Chief Complaint: _[facility] needs final clearance added to h&p due to uri patient had at last appointmentand fax to jimmie at [facility] double surface operator moriah Disposition of Call/Coordination of Care: ( _ ) Recommend immediate attention call 911 ( _ ) Report to nearest Emergency Department ( _ ) Recommend patient does not drive to the Emergency Department ( _ ) Recommend patient/caller schedule an appointment ( _ ) Transfer patient/caller to the appointment desk ( _ ) Notified Provider _ ( _ ) Awaiting provider recommendations ( _ ) Referral to services or providers: _ ( _ ) Self-care appropriate at this time: _ Patient/Caller response to Education/Information given: ( _ ) Verbalizes understanding of instructions ( _ ) Provide intervention per provider instruction ( _ ) Reinforce information already given ( _ ) Reinforce Plan of Care ( _ ) Provide preprinted information by mail (if applicable) Patient/Caller response to follow the plan of care: ( _ ) Willing and able to follow recommendation (Plan of Care). ( _ ) Not able to follow recommendations. Enter the recommended level of care and patients response to the recommendation: Source/References used (if applicable): _ Call back telephone number: _ OK to leave message on voice mail? _ OK to send message via patient portal? _ Patient told to expect return call: ( _ ) today ( _ ) tomorrow ( _ ) next work day Callers preferred language: _ Was an seismic interpreter used for this call? _ Other ( --_ ) Modified by and Electronically Signed by: JACQUIE HAMILTON LPN On: 08/27/2016 09:03 AM From: MCKINLEY MOSQUERA ([facility] [employer] Operator) To: LAWSON Roy Nurse; Sent: 08/27/2016 08:47:46 WOOD PATTERN MAKER Subject: *Phone Message/Dr. Piero Roy Caller is: ( ) Patient ( ) Mother ( ) Father ( ) Spouse ( ) Daughter ( ) Son ( ) Pharmacy ( x) Other: Jimmie from [facility] surgery scheduling Physician: Dr. Piero Roy Patient MRN #: Reason for Call: Message: Jimmie needs to speak to someone regarding this patients H & P. She needs Dr. Roy to add an adendum regarding a follow up appointment that was mentioned in the dictation. Please call her back at [phone] [facility]. Advice/Action: Source used: ( ) Verbalizes understanding [...] back cell phone number ( ) Source: [facility] POWERCHART Document Id: [id number] PATTERN MAKER Miscellaneous - Piero Weiss M.D. - 08/20/2016 2:06 PM WOOD PATTERN MAKER Ambulatory Patient Summary [facility] [address] [place] [id number] Visit Information Name: BETH COSTA SERGIO [facility] Number: [id number] Current Date: 08/20/2016 14:06:33 Physicians Attending Provider: PIERO WEISS MD Primary Care Provider: PIERO WEISS MD BETH COSTA has been given the [...] needed for cough or shortness of breath. New Routed to [facility] [address] [place] [address] atorvastatin (atorvastatin 40 mg oral tablet) 1 [...] the Following Medications: Medication list as of 08-20-16 14:06 Attention: If you have any medications at [...] Electronically Signed By: PIERO WEISS MD Signed On:20-AUG-2016 14:06:28 Your Allergies & Intolerances Substance Reaction Symptoms Category Comments doxycycline severe rash Drug penicillin Drug sulfa drugs Drug Your Problem List Problem Status Onset Comments Diabetes mellitus type II Active 11/05/1996 DM Type2 Neuropathy Active 08/24/2008 Hypertension Active Hypercholesterolemia* Active 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 [facility] to [email or web address] and click on Create Your Account. Then, follow the directions to complete the online form. Youll be asked for your [facility] number which you can find at the top of this document. Your Goals/Additional instructions: Begin taking the albuterol inhaler 2 puffs at least twice daily.Stop taking the Plavix one week prior to the scheduled procedure. Source: [facility] POWERCHART Document Id: [id number] PATTERN MAKER Miscellaneous - Piero Weiss M.D. - 08/20/2016 2:06 PM WOOD PATTERN MAKER Ambulatory Discharge Medication List [address] [id number] Visit Information Name: BETH COSTA [facility] Number: [id number] Current Date: 08/20/2016 14:06:32 Attending Provider: PIERO WEISS MD Primary Care Provider: PIERO WEISS MD BETH COSTA has been given the [...] needed for cough or shortness of breath. New Routed to [facility] [address] [place] [address] atorvastatin (atorvastatin 40 mg oral tablet) 1 [...] the Following Medications: Medication list as of 08-20-16 14:06 Attention: If you have any medications at [...] Electronically Signed By: PIERO WEISS MD Signed On:20-AUG-2016 14:06:28 Additional Information: Source: [facility] LowfootCHART Document Id: [id number] PATTERN MAKER Miscellaneous - Piero Weiss M.D. - 08/19/2016 9:06 AM WOOD PATTERN MAKER Addendum by JACQUIE HAMILTON LPN on August 19, 2016 12:53:52 WOOD PATTERN MAKER referal completed From: PIERO WEISS MD To: LAWSON Roy Nurse; Sent: 08/19/2016 09:06:40 WOOD PATTERN MAKER Please arrange for pulmonary consult at [facility] to evaluate asthma. Source: [facility] HopeLab Document Id: [id number] Miscellmaria e - Jacquie Hamilton, L.P.N. - 08/19/2016 8:25 AM CST Obstructive Sleep Apnea Obstructive Sleep Apnea Entered On: 08/19/2016 8:26 WOOD PATTERN MAKER Performed On: 08/19/2016 8:25 WOOD PATTERN MAKER by JACQUIE HAMILTON LPN AGNIESZKA Screening Known Obstructive Sleep Apnea : Patient diagnosed with AGNIESZKA; DOES NOT USE sleep machine AGNIESZKA Score : No qualifying data available. AGNIESZKA Results : No qualifying data available. JACQUIE HAMILTON LPN - 08/19/2016 8:25 WOOD PATTERN MAKER Source: [facility] LowfootCHART Document Id: [id number] WOOD PATTERN MAKER!5 PATTERN MAKER Miscellaneous - Jacquie Hamilton L.P.N. - 08/19/2016 8:22 AM CST Adult Elastic Attacher Overlock Intake/History Adult Elastic Attacher Overlock Intake/History Entered On: 08/19/2016 8:25 WOOD PATTERN MAKER Performed On: 08/19/2016 8:22 WOOD PATTERN MAKER by JACQUIE HAMILTON GROCERY CADDY Intake Chief Complaint : pre op physical for green light proceedure to be completed on 08/28/[address] luevano at [facility] Temperature Core : 36.4 DegC(Converted to: 97.5 DegF) (LOW) Peripheral Pulse Rate : 96 /min Respiratory Rate : 16 /min Systolic Blood Pressure : 126 mmHg Diastolic Blood Pressure : 64 mmHg NIBP Mean : 85 mmHg BP Location : Left upper extremity Blood Pressure Cuff Size : Regular SpO2 : 96 % Oxygen Therapy : Room air Height : 189 cm(Converted to: 6 ft 2 inch(es), 74 inch(es)) Actual Weight : 106.90 kg(Converted to: 235 lb 11 oz) Weight Source : Standing scale Dosing Weight Clinic : 106.9 kg Prosthetic device on during patient weight : No Clinic BSA : 2.37 Body Mass Index : 29.93 kg/m2 Neck Circumference : 44 cm(Converted to: 17 inch(es)) JACQUIE HAMILTON GROCERY CADDY - 08/19/2016 8:22 WOOD PATTERN MAKER General Info Information Given By : Patient Preferred Communication Mode : Verbal Languages : Armenian Is Patient Female and 13-50 no hysterectomy : No JACQUIE HAMILTON LPN - 08/19/2016 8:22 WOOD PATTERN MAKER Subjective Pain Symptoms : Yes JACQUIE HAMILTON LPN - 08/19/2016 8:22 WOOD PATTERN MAKER Pain Scale Pain Scale Verbal 0-10 : Open JACQUIE HAMILTON LPN - 08/19/2016 8:22 WOOD PATTERN MAKER Pain Pain Assessment Grid Pain 1 Location : Abdomen Laterality : Other: lower abdomen cramping Intensity : 1 JACQUIE HAMILTON LPN - 08/19/2016 8:22 WOOD PATTERN MAKER Dependent Habits Exposure to Tobacco Smoke : Other: quit in 1982 Smoking Status : Former smoker Tobacco 2A : Yes Tobacco Use/Currently Using : No Tobacco Use/Last 30 Days : No Tobacco Use/Last 12 months : No Tobacco Last Use/Year : 1982 JACQUIE HAMILTON LPN - 08/19/2016 8:22 WOOD PATTERN MAKER Caffeine Use Grid Caffeine Use : Current Type : Chocolate, Coffee, Soft drinks Frequency : Daily JACQUIE HAMILTON GROCERY CADDY - 08/19/2016 8:22 WOOD PATTERN MAKER Recreational Drug Use Grid Drug Use : None JACQUIE HAMILTON GROCERY CADDY - 08/19/2016 8:22 WOOD PATTERN MAKER Source: [facility] POWERCHART Document Id: [id number] WOOD PATTERN MAKER!52 PATTERN MAKER documented in this encounter Plan of Treatment Not on filedocumented as of this encounter Procedures Procedure Name Priority Date/Time Associated Comments Diagnosis ALBUMIN, RANDOM, U Routine 08/19/2016 9:13 AM Res ults for this WOOD PATTERN MAKER procedure are i n the results section. URINALYSIS WITH Routine 08/19/2016 9:13 AM Result s for this MICROSCOPIC WOOD PATTERN MAKER procedure are i n the results section. BACTERIAL CULTURE, Routine 08/19/2016 9:13 AM Res ults for this AEROBIC, URINE WOOD PATTERN MAKER procedure are in the results section. documented in this encounter Results (ABNORMAL) Microalbumin, Random, Urine (08/19/2016 9:13 AM WOOD PATTERN MAKER) athologist Signature Creatinine, 113 40 - 278 POWERCHART Random, U MGDL HXU Albumin % 49.3 MGL POWERCHART Albumin/Creatin 44 (H) 0 - 17 MGG POWERCHART ine Ratio Specimen (Source) Anatomical Collection Method Collection Time Re ceived Time Location / / Volume Laterality Urine 08/19/2016 9:13 AM WOOD PATTERN MAKER Piero Alejandro M.D. LAB URINE ORDERABLES Performing Organization Address City/State/ZIP Code Phon e Number POWERCHART (ABNORMAL) Urinalysis, Complete, Includes Microscopic (08/19/2016 9:13 AM WOOD PATTERN MAKER) athologist Signature Clarity Clear Clear POWERCHART HXUr Color Yellow Colorless POWERCHART Specific 1.020 POWERCHART [place], POCT, U Comment: Reference Range Specific [place]: 1.000-1.035 pH, POCT, Urine 5.5 <5.0 POWERCHART Comment: Reference Range pH: 5.0-8.0 Protein, Ur, Dip Negative Negative MGDL POWERCHAR T Glucose Negative Negative MGDL POWERCHART Ketones, QL(U) Negative Negative MGDL POWERCHART HXBILIRUBIN Negative Negative POWERCHART HXBLOOD Negative Negative POWERCHART Leukocyte Esterase Negative Negative POWERCHART HXNITRITE Negative Negative POWERCHART Urobilinogen 0.2 0.2 MGDL POWERCHART Comment: Reference Range Urobilinogen: 0.2-1.0 mg/dL HXUR WBC. Occ-3 None Seen HPF POWERCHART HXUR RBC. None Seen None Seen HPF POWERCHART Squamous Epithelial Occ-3 (A) None Seen HPF POWERC NGUYỄN Specimen (Source) Anatomical Collection Method Collection Time Re ceived Time Location / / Volume Laterality Urine, First 08/19/2016 9:13 AM Voided WOOD PATTERN MAKER Piero Alejandro M.D. LAB URINE ORDERABLES Performing Organization Address City/State/ZIP Code Phon e Number POWERCHART Bacterial Culture, Aerobic, Urine (08/19/2016 9:13 AM WOOD PATTERN MAKER) Analysis Performed At Patho logist Time Signature Bacterial POWERCHART Culture, Aerobic, Urine HXFinal No growth POWERCHART Specimen (Source) Anatomical Collection Method Collection Time Re ceived Time Location / / Volume Laterality Urine, First 08/19/2016 9:13 AM Voided WOOD PATTERN MAKER Piero Alejandro M.D. LAB MICROBIOLOGY - GEN ERAL ORDERABLES Performing Organization Address City/State/ZIP Code Phon e Number POWERCHART documented in this encounter Visit Diagnoses Not on filedocumented in this encounter Additional Health Concerns Assessment Noted Time PHQ-9 Depression Total Score: 6 01/31/2015 12:28 PM CD T documented as of this encounter
--- OUTSIDE RECORDS SUMMARY | 2022-05-21 11:37 | XMS_ITS | Encounter Summary ---
:1945 Author Organization [facility] Address [address] [place] [address] Care Team Providers Name Role Phone Unavailable Primary Care Provider Unavailable Encounter Details Date Type Department Care Team Description 08/27/2016 Hospital Encounter HX [facility] FAMILYPRA Ewa Forbes M.D. [address] [place], [place] [phone] (Wo rk) Social History [...] Reading Time Taken Comments Blood Pressure 132/80 08/27/2016 2:28 PM DECAL DECORATOR Pulse 84 08/27/2016 2:28 PM DECAL DECORATOR Temperature - - Respiratory Rate 20 08/27/2016 2:28 PM DECAL DECORATOR Oxygen Saturation - - Inhaled Oxygen Concentration - - Weight 109 kg (240 lb 8.4 oz) 08/27/2016 2:28 PM DECAL DECORATOR Height 189 cm (6' 2.41) 08/27/2016 2:28 PM DECAL DECORATOR Body Mass Index 30.54 08/27/2016 2:28 PM DECAL DECORATOR documented in this encounter Medications at Time [...] encounter Progress Notes Ewa Weiss M.D. - 08/27/2016 2:12 PM CST [id number] CHIEF COMPLAINT/ REASON FOR VISIT Recheck URI for final clearance for surgery scheduled on 08/28/2016. HISTORY OF PRESENT ILLNESS Jonnathan is a 71 year old male who presents to the clinic today for recheck URI for final clearance forsurgery scheduled on 08/28/2016. When he was seen on 08/19/2016 for a preoperative exam, Jonnathan had been having difficulty with a productive cough and been previously been treated with an antibiotic on 10/12/2015. Since 08/19 he has been feeling better and feels that he is back to his baseline. Jonnathan takes his Lantus insulin (40 units) in the morning, which he has been doing for 25 years. The patient denies any additional questions or concerns at this time. MEDICATIONS Post-visit Medication Reconciliation Reviewed and are as outlined in the EMR dated 08/27/2016. ALLERGIES Penicillin. Sulfa drugs. Doxycycline causes severe rash. SYSTEMS REVIEW Please see HPI for pertinent positives, otherwise rest of ROS negative. PAST MEDICAL/SURGICAL HISTORY 1. Benign prostatic hypertrophy. 2. 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 3. Hypertension. 4. Hypercholesterolemia. 5. Erectile dysfunction. 6. [facility]omat[facility], but probably some degree of COPD. 7. Status post left cataract surgery at the [facility]. 8. Tonsillectomy. 9. Obstructive sleep apnea, prescribed CPAP therapy but is currently not using. 10. 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 Bernal. 11. Asthma. PREVENTIVE SERVICES Tobacco use: none, former smoker (quit in 1982). VITAL SIGNS HEIGHT: 189 cm. WEIGHT: 109.1 kg. BMI: 30.54 kg/m2. TEMP: 36.2 Deg C. PULSE: 84 /min. RESP: 20 /min. SpO2: 96 %. SYSTOLIC: 132 mmHg. DIASTOLIC: 80 mmHg. PHYSICAL EXAMINATION GENERAL: Patient is alert [...] murmur. LUNGS: Clear to auscultation. IMPRESSION/REPORT/PLAN 1. Recent URI. He is back to baseline. Jonnathan is cleared up to and including general anesthesia and may proceed with surgery as scheduled on 08/28/[address] Bernal at the [facility]. 2. Type II diabetes mellitus. I recommended that he take his NovoLog as usual today and take nothingtomorrow morning prior to surgery. 3. Medication review prior to surgery. We reviewed the remainder of his medication list; I recommended that he hold his morning medications including Losartan, Metformin and Gemfibrozil. He may continue with his usual evening medications. 4. Follow up. The patient will contact the clinic with any new or worsening symptoms. This document serves as a record of services personally performed by Ewa Roy MD. It was created on their behalf by Lulu Roldan, a trained medical billing service. The creation of this record is based on the scribe's personal observations and the provider's statements to them. This document has been christie cked and approved by the attending provider. Ewa Hinton M.D./livia Electronically Signed By: EWA WEISS MD On: 09/04/2016 08:22 AM Source: [facility] MHSDOLBEYNJESSIESYS Document Id: [id number] L DECORATOR documented in this encounter Miscellaneous Notes Miscellaneous - Sugey Polanco C.M.A. - 08/27/2016 2:28 PM CST Adult Auto Hauler Intake/History Adult Auto Hauler Intake/History Entered On: 08/27/2016 14:31 DECAL DECORATOR Performed On: 08/27/2016 14:28 DECAL DECORATOR by SUGEY POLANCO [facility] Intake Chief Complaint : 1: final surgeryl clearance 2: insluin directions Temperature Core : 36.2 DegC(Converted to: 97.2 DegF) (LOW) Peripheral Pulse Rate : 84 /min Respiratory Rate : 20 /min Systolic Blood Pressure : 132 mmHg Diastolic Blood Pressure : 80 mmHg NIBP Mean : 97 mmHg BP Location : Left upper extremity Blood Pressure Cuff Size : Large SpO2 : 96 % Oxygen Therapy : Room air Height : 189 cm(Converted to: 6 ft 2 inch(es), 74 inch(es)) Actual Weight : 109.1 kg(Converted to: 240 lb 8 oz) Weight Source : Standing scale Dosing Weight Clinic : 109.1 kg Prosthetic device on during patient weight : No Clinic BSA : 2.39 Body Mass Index : 30.54 kg/m2 SUGEY POLANCO [facility] - 08/27/2016 14:28 DECAL DECORATOR General Info Information Given By : Patient Languages : Portuguese Is Patient Female and 13-50 no hysterectomy : No SUGEY POLANCO CMA - 08/27/2016 14:28 DECAL DECORATOR Subjective Pain Symptoms : No SUGEY POLANCO CMA - 08/27/2016 14:28 DECAL DECORATOR Dependent Habits Exposure to Tobacco Smoke : Other: quit in 1982 Smoking Status : Former smoker Tobacco 2A : Yes Tobacco Use/Currently Using : No Tobacco Use/Last 30 Days : No Tobacco Use/Last 12 months : No Tobacco Last Use/Year : 1982 SUGEY POLANCO [facility] - 08/27/2016 14:28 DECAL DECORATOR Caffeine Use Grid Caffeine Use : Current Type : Chocolate, Coffee, Soft drinks Frequency : Daily SUGEY POLANCO [facility] - 08/27/2016 14:28 DECAL DECORATOR Recreational Drug Use Grid Drug Use : None SUGEY POLANCO [facility] - 08/27/2016 14:28 DECAL DECORATOR Source: [facility] [employer] Document Id: [id number] DECAL DECORATOR!42 L DECORATOR documented in this encounter Plan of Treatment Not on filedocumented as of this encounter Visit Diagnoses Not on filedocumented in this encounter Additional Health Concerns Assessment Noted Time PHQ-9 Depression Total Score: 6 01/31/2015 12:28 PM CD T documented as of this encounter
--- OUTSIDE RECORDS SUMMARY | 2022-05-21 11:37 | XMS_ITS | Encounter Summary ---
:1945 Author Organization [facility] Address [address] [place] [address] Care Team Providers Name Role Phone Unavailable Primary Care Provider Unavailable Encounter Details Date Type Department Care Team Description 08/19/2016 Hospital Encounter HX NO MAPPING Ewa Alejandro M.D. [address] [place], [place] [phone] (Wo rk) Social History [...] do you attend anabaptist or Never 2021 pentecostalism services? Do you [...] Miscellaneous - Conversion, Historical Provider Ser - 08/19/2016 11:59 PM OFFICE TECHNOLOGY PROFESSOR Coding Summary-Paper Based CODING DATE: 08/29/2016 FINAL [facility] STATUS: * Discharged to Home or Self Care PAYOR: Medicare Advantage ADMIT DX: REASON FOR VISIT DX: FINAL DX: PRINCIPAL: E11.9 Type 2 diabetes mellitus without complications SECONDARY: Z01.818 Encounter for other preprocedural examination PROCEDURES DOCTOR NAME DATE NOTE: The code number assigned matches the documented diagnosis and / or procedure in the patient's chart. However, the narrative phrase printed from the coding software may appear abbreviated, or result in slightly different terminology. Coded By: TORO ROSE Date Saved: 08/29/2016 07:37 am Source: [employer] Document Id: [id number] documented in this encounter Plan of Treatment Not on filedocumented as of this encounter Visit Diagnoses Not on filedocumented in this encounter Additional Health Concerns Assessment Noted Time PHQ-9 Depression Total Score: 6 01/31/2015 12:28 PM CD T documented as of this encounter
--- OUTSIDE RECORDS SUMMARY | 2022-05-21 11:38 | XMS_ITS | Encounter Summary ---
:1945 Author Organization [facility] Address [address] [place] [address] Care Team Providers Name Role Phone Unavailable Primary Care Provider Unavailable Encounter Details Date Type Department Care Team Description 11/06/2015 Hospital Encounter HX [facility] FB NURSE Piero Hong i, M.D. [address] [place] [phone] (Wo rk) Social History Tobacco [...] do you attend mosque or Never 2021 hinduism services? Do you [...] Sign Reading Time Taken Comments Blood Pressure 144/70 11/06/2015 11:00 AM GLOST TILE SORTER Pulse 90 11/06/2015 11:00 AM GLOST TILE SORTER Temperature - - Respiratory Rate - - Oxygen Saturation - - Inhaled Oxygen Concentration - - Weight - - Height - - Body Mass Index - - documented in this encounter Medications at Time of Discharge Medication Sig Dispensed Refills Start Date End Date budesonide-formoterol Inhale 2 puffs as 0 013 [...] Notes Miscellaneous - Piero Weiss M.D. - 11/09/2015 5:34 PM GLOST TILE SORTER Addendum by MARTI SANCHEZ LPN on 10 November 2015 16:39:05 GLOST TILE SORTER patient notified and images submitted to md for review Addendum by MARTI SANCHEZ LPN on 10 November 2015 08:26:40 GLOST TILE SORTER stress test completed of ekg part awaiting neucular images from [facility] From: PIERO WEISS MD To: LAWSON Roy Nurse; Sent: 11/09/2015 17:34:26 GLOST TILE SORTER Please let Jonnathan know that h is carotid ultrasound was normal and find out when his stress test is scheduled Source: [facility] POWERCHART Document Id: [id number] Electronically signed by Conversion, [facility] Commercial [employer] Software Developer [id number] at 02/22/2017 10:00 AM CDT Miscellaneous - Erica Morgan, C.M.A. - 11/06/2015 11:16 AM CST *General Message From: ERICA MORGAN [facility] To: PIERO WEISS MD; Sent: 11/06/2015 11:16:41 GLOST TILE SORTER Subject: *General Message Patient was iin for B/P check today. B/P 145/67 Pulse 93 I waited three minutes and took B/P again. B/P 144/70 Pulse 90 Source: [facility] POWERCHART Document Id: [id number] Reji - Erica Morgan C.MMauroA. - 11/06/2015 11:00 AM CST Ambulatory Vitals Height Weight Ambulatory Vitals Height Weight Entered On: 11/06/2015 11:15 GLOST TILE SORTER Performed On: 11/06/2015 11:00 GLOST TILE SORTER by ERICA MORGAN CMA Vitals/Ht/Wt Peripheral Pulse Rate : 90 /min Systolic Blood Pressure : 144 mmHg (HI) Diastolic Blood Pressure : 70 mmHg NIBP Mean : 95 mmHg BP Location : Left upper extremity Blood Pressure Cuff Size : Regular ERICA MORGAN [facility] - 11/06/2015 11:14 GLOST TILE SORTER [facility] Document Id: [id number] GLOST TILE SORTER!8 T TILE SORTER Carencellmaria e - Erica Morgan C.M.A. - 11/06/2015 10:44 AM CST Ambulatory Vitals Height Weight Ambulatory Vitals Height Weight Entered On: 11/06/2015 10:45 GLOST TILE SORTER Performed On: 11/06/2015 10:44 GLOST TILE SORTER by ERICA MORGAN CMA Vitals/Ht/Wt Peripheral Pulse Rate : 93 /min Systolic Blood Pressure : 145 mmHg (HI) Diastolic Blood Pressure : 67 mmHg NIBP Mean : 93 mmHg BP Location : Left upper extremity Blood Pressure Cuff Size : Regular ERICA MORGAN [facility] - 11/06/2015 10:44 GLOST TILE SORTER [facility] Document Id: [id number] GLOST TILE SORTER!8 T TILE SORTER documented in this encounter Plan of Treatment Not on filedocumented as of this encounter Visit Diagnoses Not on filedocumented in this encounter Additional Health Concerns Assessment Noted Time PHQ-9 Depression Total Score: 6 01/31/2015 12:28 PM CD T documented as of this encounter
--- OUTSIDE RECORDS SUMMARY | 2022-05-21 11:38 | XMS_ITS | Encounter Summary ---
:1945 Author Organization [facility] Address [address] [place] [address] Care Team Providers Name Role Phone Unavailable Primary Care Provider Unavailable Encounter Details Date Type Department Care Team Description 11/23/2015 Hospital Encounter HX [facility] NEUROLOGY Mari Lala M.D., M.P.H. [address] [place] [phone] (Wo rk) Social History Tobacco [...] do you attend taoist or Never 2021 presybeterian services? Do you [...] Sign Reading Time Taken Comments Blood Pressure 138/70 11/23/2015 2:15 PM HARBOR TUG CAPTAIN Pulse 72 11/23/2015 2:15 PM HARBOR TUG CAPTAIN Temperature - - Respiratory Rate - - Oxygen Saturation - - Inhaled Oxygen Concentration - - Weight 112 kg (245 lb 13 oz) 11/23/2015 2:15 PM HARBOR TUG CAPTAIN Height - - Body Mass Index 30.56 01/31/2015 9:26 AM CDT documented in this [...] documented as of this encounter Consult Notes Francisca Lala M.D., M.P.H. - 11/23/2015 1:14 PM CST [id number] CHIEF COMPLAINT/REASON FOR VISIT Stroke. HISTORY OF PRESENT ILLNESS Mr. Costa is a 70-year-old, right-handed male who presents with several weeks of dizziness characterized by feeling off-balance when he is walking on bleachers. He describes the sensation may get better or worse in certain situations. He also feels like he is having some difficulty cognitively and und er a little bit more stress recently. He was evaluated on the [address] Roy who obtained neuroimaging, 2D echo imaging of his carotids and echocardiogram. MRI brain reveals a 3 mm and 8 mm lacunar infarct on the left side of his hussein. His echocardiogram and carotid imaging were unremarkable. He obtained an MRA of his cerebral vascular vessels today and that shows no stenosis. He presents today for evaluation with his . Patient does have a longstanding history of hypertension.I reviewed the imaging studies with the patient, his , and their daughter by telephone. Today hefeels well. He is not having any particular symptoms of balance problems today but if he is put in asituation where he has to walk on bleachers he assures me that symptoms may develop. PAST MEDICAL/SURGICAL HISTORY Diabetes mellitus, type 2, hypercholesterolemia, hypertension, obstructive sleep apnea. MEDICATIONS Atorvastatin 40 mg. Insulin. Losartan 100 mg daily. Aspirin 81 mg. Doxazosin 4 mg at bedtime. Finasteride 5 mg daily. Metformin 1000 mg 2 times a 1000 mg 2 times a day. Prednisone 10 mg. ALLERGIES Doxycycline results in a rash. Penicillin and sulfa drugs are also listed as allergies. SYSTEMS REVIEW CONSTITUTIONAL: Negative. EYES: Negative. ENT: Negative. CARDIOVASCULAR: Negative. RESPIRATORY: Negative. GASTROINTESTINAL: Negative. GENITOURINARY: Negative. MUSCULOSKELETAL: Negative. SKIN: Negative.NEUROLOGIC: As noted in HPI. ENDOCRINE: Negative. HEMATOLOGIC: Negative. ALLERGIC: He says yes to ant ibiotics. PSYCHIATRIC: Negative. PHYSICAL EXAMINATION GENERAL: He is a well developed, well nourished, white male, in no distress. VITAL SIGNS: He weighs 111.5 kg. Blood pressure is 130/70. Peripheral pulse is 72. HEENT: Normal, atraumatic. He has no thyromegaly. CARDIOPULMONARY: Exam is normal. NEUROLOGIC: Cranial nerves normal including visual bosch and extraocular movements. His motor exam reveals normal bulk, tone, and strength throughout. His deep tendon reflexes are 2+ and symmetric. His station and gait are normal. His sensation to light touch is normal. IMPRESSION/REPORT/PLAN The patient has had 2 lacunar infarcts. His risk factors include hypercholesterolemia, hypertension and diabetes. He is already taking aspirin 81 mg. [facility] Plavix 75 mg. I think that is reasonable and I do not have any other evaluations at this time. Patient and his and I had a long conversation about the pathophysiology of his stroke and I think some of the problems he has with thinking are probably related to the fact when he is off balance part of his frontal lobe is busy evaluating that and it probably accounts for why sometimes he feels under a little bit more stress because of this new problem. He actually looks quite well today and I think as long as he does not have anymore strokes that the symptoms will likely resolve over time which is the natural history. Anticoagulation would be contraindicated in this situation. Total time with the patient including reviewing records and counseling was approximately an hour. Over 40 minutes of that was counseling. I am going to plan to see him back in 6 months. I appreciate being involved in patient's care. Please call if any concerns or questions. Francisca Lala M.D./phong Electronically Signed By: FRANCISCA LALA MD MPH On: 11/24/2015 04:22 PM Source: [facility] Document Id: [id number] OR TUG CAPTAIN documented in this encounter Miscellaneous Notes Miscellaneous - Francisca Lala M.D., M.P.H. - 11/29/2015 8:34 AM CST RE: *The Coding Query From: FRANCISCA LALA MD MPH To: LAUREL RIOS; Sent: 11/29/2015 08:34:59 HARBOR TUG CAPTAIN Subject: RE: *The Coding Query Done, thanks and sorry From: LAUREL RIOS To: FRANCISCA LALA MD MPH; Sent: 11/28/2015 14:08:48 HARBOR TUG CAPTAIN Subject: *The Coding Query Hello, Missing OV charges for the patient above. DOS: 11/23/2015 Please make sure to Uncheck the box, Save To Chart, so that this message is not saved into the patients chart when replying. Thank you, Laurel Rois, [facility], CMRS Revenue Recognition-Coding Source: [facility] [employer] Document Id: [id number] Miscellaneous - Natalee Plunkett, L.P.N. - 11/23/2015 2:15 PM CST Adult Drug Safety Data Management Specialist Intake/History Adult Drug Safety Data Management Specialist Intake/History Entered On: 11/23/2015 14:21 HARBOR TUG CAPTAIN Performed On: 11/23/2015 14:15 HARBOR TUG CAPTAIN by NATALEE PLUNKETT LPN Intake Chief Complaint : Brain stem stroke Ref. Peripheral Pulse Rate : 72 /min Systolic Blood Pressure : 138 mmHg Diastolic Blood Pressure : 70 mmHg NIBP Mean : 93 mmHg BP Location : Right upper extremity Blood Pressure Cuff Size : Large Actual Weight : 111.5 kg(Converted to: 245 lb 13 oz) Weight Source : Standing scale Dosing Weight Clinic : 111.5 kg NATALEE PLUNKETT LPN - 11/23/2015 14:15 HARBOR TUG CAPTAIN General Info Information Given By : Patient, Spouse, Other: 's name is Diallo Languages : Mohawk Is Patient Female and 13-50 no hysterectomy : No NATALEE PLUNKETT LPN - 11/23/2015 14:15 HARBOR TUG CAPTAIN Subjective Pain Symptoms : No NATALEE PLUNKETT LPN - 11/23/2015 14:15 HARBOR TUG CAPTAIN Dependent Habits Exposure to Tobacco Smoke : Other: quit 40 years ago Smoking Status : Former smoker Tobacco 2A : Yes Tobacco Use/Currently Using : No Tobacco Use/Last 30 Days : No Tobacco Use/Last 12 months : No NATALEE PLUNKETT LPN - 11/23/2015 14:15 HARBOR TUG CAPTAIN Caffeine Use Grid Caffeine Use : Current Type : Coffee Frequency : Daily NATALEE PLUNKETT LPN - 11/23/2015 14:15 HARBOR TUG CAPTAIN Recreational Drug Use Grid Drug Use : None NATALEE PLUNKETT LPN - 11/23/2015 14:15 HARBOR TUG CAPTAIN [facility] Document Id: [id number] HARBOR TUG CAPTAIN!33 OR TUG CAPTAIN documented in this encounter Plan of Treatment Not on filedocumented as of this encounter Visit Diagnoses Not on filedocumented in this encounter Additional Health Concerns Assessment Noted Time PHQ-9 Depression Total Score: 6 01/31/2015 12:28 PM CD T documented as of this encounter
--- OUTSIDE RECORDS SUMMARY | 2022-05-21 11:38 | XMS_ITS | Encounter Summary ---
:1945 Author Organization [facility] Address [address] [place] [address] Care Team Providers Name Role Phone Unavailable Primary Care Provider Unavailable Encounter Details Date Type Department Care Team Description 04/29/2016 Hospital Encounter HX NO MAPPING Ewa Alejandro M.D. [address] [place], [place] [phone] (Wo rk) Social History [...] do you attend hoahaoism or Never 2021 episcopalian services? Do you [...] Miscellaneous - Conversion, Historical Provider Ser - 04/29/2016 11:59 PM CDT Coding Summary-Paper Based CODING DATE: 05/10/2016 FINAL [facility] STATUS: * Discharged to Home or Self [...] Coded By: LUIS EDUARDO TREVIZO Date Saved: 05/10/2016 11:05 am Source: [employer] Document Id: [id number] documented in this encounter Plan of Treatment Not on filedocumented as of this encounter Visit Diagnoses Not on filedocumented in this encounter Additional Health Concerns Assessment Noted Time PHQ-9 Depression Total Score: 6 01/31/2015 12:28 PM CD T documented as of this encounter
--- OUTSIDE RECORDS SUMMARY | 2022-05-21 11:38 | XMS_ITS | Encounter Summary ---
:1945 Author Organization [facility] Address [address] [place] [address] Care Team Providers Name Role Phone Unavailable Primary Care Provider Unavailable Encounter Details Date Type Department Care Team Description 05/25/2015 Hospital Encounter HX [facility] Piero Grier M.D. [address], [place] [phone] (Wo rk) Social History [...] do you attend holiness or Never 2021 faith services? Do you [...] Notes Miscellaneous - Piero Weiss M.D. - 05/28/2015 1:09 PM CDT Custom Result Letter 28 May 2015 JONNATHAN COSTA [id number] [facility] [place] [id number] Dear JONNATHAN COSTA, Your cholesterol is better but still not where I'd like it to be. Two options for improving are increased attention to low fat diet and exercise and/or switching to a different medication regimen. If you feel there is roonm in your lifestyle for these changes, then I'm OK with that and we can check your fasting labs again in six months. Result Name Current Result Previous Result Normal Range AST (unit/L) 21 05/25/2015 20 04/06/2015 8 - 48 Cholesterol (mg/dL) (H) 204 05/25/2015 (H) 218 04/06/2015 - <=199 Trig (mg/dL) (H) 412 05/25/2015 (H) 435 04/06/2015 - <=149 HDL (mg/dL) (L) 35 05/25/2015 (L) 36 04/06/2015 >=40 - LDL Direct (mg/dL) 118 05/25/2015 (H) 131 04/06/2015 - <=129 LDL Calculated (mg/dL) Test Not Performed 05/25/2015 Test Not Performed 04/06/2015 - <=129 Chol/HDL Ratio 5.83 05/25/2015 6.06 04/06/2015 LDL/HDL Not performed 05/25/2015 Not performed 04/06/2015 Sincerely, PIERO HERNANDEZ [address] [facility] [place] [address] Electronic Signature Electronically Signed By: PIERO WEISS MD On: 28 May 2015 This document has images extracted. Source: [facility] POWERCHART Document Id: [id number] documented in this encounter Plan of Treatment Not on filedocumented as of this encounter Procedures Procedure Name Priority Date/Time Associated Comments Diagnosis LIPID PANEL, S Routine 05/25/2015 6:57 Results fo r this AM CDT procedure are i n the results section. ASPARTATE Routine 05/25/2015 6:57 Results for this AMINOTRANSFERASE (AST), AM CDT proc edure are in S/P the results section. LDL CHOLESTEROL Routine 05/25/2015 6:57 Results f or this (BETA-QUANTIFICATION), S AM CDT pro cedure are in the results section. documented in this encounter Results LDL Cholesterol (Beta-Quantification) (05/25/2015 6:57 AM CDT) P athologist Signature Direct LDL 118 <=129 MGDL POWERCHART Comment: 2013 National Lipid Association recommen dations for LDL-C in adults ages 18 and up: Desirable <100 mg/dL Above desirable 100-129 mg/dL Borderline high 130-159 mg/dL High 160-189 mg/dL Very High 190 mg/dL 2013 National Lipid Association recommen dations for LDL-C in children ages 2 to 17. Acceptable <110 mg/dL Borderline High 110-129mg/dL High 130 mg/dL LDL-C >190mg/dL: The markedly elevated LDL level is suggestive of a genetic condition such as familial hypercholesterolemia(FH) or familial defective apolipoprotein B-100 (FDB). Molecular genetic t esting for FH and FDB is available throu [facility]: FH/ADH Genetic Reflex Saleh el (test ADHP). Acquired (non-genetic) causes of markedly increased LDL cholesterol include cholestatic liver disease due to the presence of LpX. If a genetic form of hypercholesterolemia is suspected, family studies including biochemical testing fo r lipids (total cholesterol,triglycerides, LDL cholesterol and HDL cholesterol) are recommended. ??Please contact the laboratory at or the on-line test catalog at [email or web address] for information about how to order these more ts or to speak with a genetic counselor. Further interpretation would require clinical information. Specimen Anatomical Collection Method Collection Time Receive d Time (Source) Location / / Volume Laterality Blood 05/25/2015 6:57 AM 5 6:57 CDT AM CDT Piero Alejandro M.D. LAB BLOOD ADD-ON Performing Organization Address City/State/ZIP Code Phon e Number POWERCHART AST (Aspartate Aminotransferase) (05/25/2015 6:57 AM CDT) [facility] Method Time Signature Aspartate 21 8 - 48 POWERCHART Aminotransferase UNITL (AST), S Specimen (Source) Anatomical Collection Method Collection Time Re ceived Time Location / / Volume Laterality Blood 05/25/2015 6:57 AM CDT Piero Alejandro M.D. LAB BLOOD ADD-ON Performing Organization Address City/State/ZIP Code Phon e Number POWERCHART (ABNORMAL) Lipid Panel (05/25/2015 6:57 AM CDT) [facility] Method Time Signature Calculated LDL Test Not <=129 POWERCHART Performed MGDL Comment: LDL Calculated cannot be perfor med because the Triglyceride is > 400 mg/dL. A measured LDL has been ordered. Cholesterol, Total 204 (H) <=199 MGDL POWERCHART Comment: 2014 National Lipid Association recommen dations for Total Cholesterol in adults ages 18 and up: Desirable <200 mg/dL Borderline high 200-239 mg/dL High 240 mg/dL 2014 National Lipid Association recommen dations for Total Cholesterol in children ages 2 to 17. Acceptable <170 mg/dL Borderline High 170-199 mg/dL High 200 mg/dL HX HDL 35 (L) >=40 MGDL POWERCHART Comment: 2014 National Lipid Association recommen dations for HDL-C in adults ages 18 and up: Low <40 mg/dL (Men) Low <50 mg/dL (Women) 2014 National Lipid Association recommen dations for HDL-C in children ages 2 to 17. Low <40 mg/dL Borderline Low 40-45 mg/dL Acceptable >45 mg/dL Triglycerides 412 (H) <=149 MGDL POWERCHART Comment: 2014 National Lipid Association [...] when triglycerides are >400mg/dL. Total Cholesterol/HDL Ratio 5.83 PO WERCHART HXLDL/HDL Not performed POWERCHART Specimen (Source) Anatomical Collection Method Collection Time Re ceived Time Location / / Volume Laterality Blood 05/25/2015 6:57 AM CDT Piero Alejandro M.D. LAB BLOOD ADD-ON Performing Organization Address City/State/ZIP Code Phon e Number POWERCHART documented in this encounter Visit Diagnoses Not on filedocumented in this encounter Additional Health Concerns Assessment Noted Time PHQ-9 Depression Total Score: 6 01/31/2015 12:28 PM CD T documented as of this encounter
--- OUTSIDE RECORDS SUMMARY | 2022-05-21 11:38 | XMS_ITS | Encounter Summary ---
:1945 Author Organization [facility] Address [address] [place] [address] Care Team Providers Name Role Phone Unavailable Primary Care Provider Unavailable Encounter Details Date Type Department Care Team Description 04/19/2015 Hospital Encounter HX [facility] MyrMiesha felton, STUCC[employer] LABORER, C.N.P. [address] [place] [address] (Wo rk) Social History Tobacco [...] do you attend rastafari or Never 2021 adventist services? Do you [...] Sign Reading Time Taken Comments Blood Pressure 140/72 04/19/2015 11:44 AM CDT Pulse 68 04/19/2015 11:42 AM CDT Temperature - - Respiratory Rate 16 04/19/2015 11:42 AM CDT Oxygen Saturation - - Inhaled Oxygen Concentration - - Weight 111 kg (244 lb 4.3 oz) 04/19/2015 11:42 AM CDT Height - - Body Mass Index 30.37 01/31/2015 9:26 AM CDT documented in this [...] documented as of this encounter Progress Notes Petr Dial, [employer]ORER, C.N.P. - 04/19/2015 11:29 AM CDT [id number] CHIEF COMPLAINT/REASON FOR VISIT Diabetes neuropathy, here for education. HISTORY OF PRESENT ILLNESS Beth is here for diabetes education. He has diabetes type 2 with neuropathy. His last A1c was mildly elevated at 7.7. He states he has had diabetes for over 25 years. He has been on insulin for most of that time. He finds he gets hungry easily. He is interested in mainly diet education today. MEDICATIONS See depart summary from today. ALLERGIES Doxycycline, penicillin and sulfa. SYSTEMS REVIEW Positive for that mentioned in the history of present illness and noted in the past medical history in the EMR. All other systems were reviewed and were negative. PREVENTIVE Diabetes education was done today. SOCIAL HISTORY He does not smoke. FAMILY HISTORY Reviewed from today's family history tab in the EMR. VITAL SIGNS Reviewed from today's evaluation under the vitals tab in the EMR. PHYSICAL EXAMINATION GENERAL: Well-developed, well-nourished male, in no acute distress. SKIN: Warm and dry. HEART: Regular rate and rhythm. LUNGS: Clear to auscultation. IMPRESSION/REPORT/PLAN Diabetes type 2, neuropathy. Here for diabetes education. Please see breastfeeding educator intake form in the electronic medical record. Today 30 minutes was spent counseling and coordinating care including discussing diet, how to increase protein, eat healthy carbohydrates. We reviewed carbohydrate counting. He was given several handouts with information on diet and carbohydrate counting and recommendedservings per day. Petr Dial, ZULEYKA/aos Electronically Signed By: PETR DIAL CNP On: 04/20/2015 11:12 AM Source: [facility] [email or web address] Document Id: [id number] documented in this encounter Nursing Notes Petr Dial APRN, C.N.P. - 04/19/2015 1:02 PM CDT Public Records Researcher Intake (Adult) Public Records Researcher Intake (Adult) Entered On: 04/19/2015 13:04 CDT Performed On: 04/19/2015 13:02 CDT by PETR DIAL CNP Assessment Program Type : Non-Program Diabetes Referring Provider : PIERO ROJAS MD Special needs : None Method Used for DSME : Individual Last Educator Visit Date : 04/19/2015 CDT Diabetes Type : Type 2 19 years and older Ethnicity : White/ Current Treatment : Insulin vial, Oral agents Medication Compliance : Takes meds as prescribed Diabetes Medications Reviewed : Yes Medication Categories : Biguanide, Insulin Time Spent With Patient : 30 Minutes PETR DIAL CNP - 04/19/2015 13:02 CDT Education Diabetes Education Grid Topics : Nutritional Management - Carb Counting, Nutritional Management - Small Portions, Physical activity, Monitoring - Blood Glucose, Using Results - Blood Glucose, Problem Solving/Goal Setting - Compliance Strategies, Problem Solving/Goal Setting - Treatment/Management Goals, Psychosocial Adjustment - Coping/Care Regimen Individuals Taught : Patient Barriers to Learning : None evident Teaching Method : Demonstration, Explanation, Printed materials Teaching Evaluation : Needs reinforcement, Verbalizes understanding PETR DIAL CNP - 04/19/2015 13:02 CDT Comprehensive Program Goals Diabetes Education Goals Grid Diabetes Education Goal #1 row Diabetes Education Goal #2 row Diabetes Education Goal #3 row Date Goal Set : 04/19/2015 CDT 04/19/2015 CDT 04/19/2015 CDT Goal : A1c less than 8.0 daily physical exercise Annual eye exam Related Content Area : Medication Exercise/activity Monitoring PETR DIAL CNP - 04/19/2015 13:02 CDT MIESHA DIALMaryana Strong [facility] - 04/19/2015 13:02 CDT PETR DIALTae [facility] - 04/19/2015 13:02 CDT Source: [facility] POWERCHART Document Id: [id number] CDT!36 Petr Dial APRN, C.N.P. - 04/19/2015 11:43 AM CDT Ambulatory Patient Education The following Patient Education Materials have been given to the patient: Patient Education Materials: Ambulatory DIABETIC DIET Ambulatory Diet: Diabetes Food is an important tool that you can use to control diabetes and stay healthy. Eating well-balanced meals in the correct amounts will help you control your blood glucose levels and prevent low blood sugar reactions. It will also help you reduce the health risks of diabetes. A registered dietitian (ODELL) will explain the diabetes diet and help you plan meals and snacks that are healthy to eat. If you have any questions, do not hesitate to call the dietitian for advice. Guidelines For Success: ?? Consult with your doctor before starting a diabetes diet or weight loss program. If you have not yet consulted a dietitian, ask your doctor for a referral. ?? Select foods from the six food groups. Your dietitian will advise you on food choices within eachgroup, serving sizes and how many servings you can have at each meal. ?? Grains, beans and starchy vegetables ?? Vegetables ?? Fruit ?? Milk or yogurt ?? Meats ?? Fats, sweets and alcohol (only a small amount from this group) ?? Monitor your blood sugar levels as requested by your doctor. Take any medicine as prescribed by your doctor. ?? Learn to read nutrition labels and select appropriate portion sizes. ?? Eat only the amount of food in your meal plan. Eat about the same amount of food at regular timeseach day. Do not skip meals. Eat meals 4 to 5 hours apart, with snacks in between. ?? Limit alcohol. It raises blood sugar levels. Drink water or calorie-free diet drinks that use safe sweeteners. ?? Eat less fat to help lower your risk of heart disease. Use non-fat or low-fat dairy products and lean meats. Avoid fried foods. Use cooking oils that are unsaturated. ?? Talk to your rebeamer about safe sugar substitutes. ?? Avoid added salt. It can contribute to high blood pressure, which can cause heart disease. Peoplewith diabetes already have a risk of high blood pressure and heart disease. ?? Maintain a healthy weight. If you need to lose weight, cut down on your portion sizes. But do notskip meals. Exercise is an important part of any weight management program. Talk to your doctor about an exercise program that is right for you. ?? For more information about the best diet plan for you, talk with a registered dietitian (RD). To obtain a referral to an RD in your area, contact: ?? Academy of Nutrition and Dietetics www.eatright.org ?? The [place] [employer] 928-610-8515 www.diabetes.org ?? [place] [address]. All rights reserved. This information is not intended as a substitute for professional medical care. Always follow your healthcare professional's instructions. This document has images extracted. Please consider using triptap for all your patient education needs. Source: [employer] Document Id: [id number] documented in this encounter Miscellaneous Notes Miscellaneous - Vashti Mcintosh, L.P.N. - 04/19/2015 11:44 AM CDT Ambulatory Vitals Height Weight Ambulatory Vitals Height Weight Entered On: 04/19/2015 11:44 CDT Performed On: 04/19/2015 11:44 CDT by VASHTI MCINTOSH LPN Vitals/Ht/Wt Systolic Blood Pressure : 140 mmHg Diastolic Blood Pressure : 72 mmHg NIBP Mean : 95 mmHg BP Location : Left upper extremity Blood Pressure Cuff Size : Large VASHTI MCINTOSH LPN - 04/19/2015 11:44 CDT Source: [employer] Document Id: [id number] CDT!7 Miscellaneous - Petr Dial APRN C.N.P. - 04/19/2015 11:43 AM CDT Ambulatory Patient Summary [address] [id number] Visit Information Name: RENEEBETH HANSON [facility] Number: [id number] Current Date: 04/19/2015 11:43:45 Physicians Attending Provider: PETR DIAL CNP Primary Care Provider: PIERO ROJAS MD RENEE BETH SERGIO has been given the following list of [...] Take Indications/Special Instructions/Comments/Notes for Patient Medication Changes/Routing aspirin (aspirin 81 mg oral tablet) 1 Tablet(s), Oral, once a day atorvastatin (atorvastatin 40 mg oral tablet) 1 Tablet(s), Oral, once a day (at bedtime) *budesonide-formoterol (budesonide-formoterol 160 mcg-4.5 mcg/inh inhalation aerosol) 2 puff(s), Inhalation, two times a day doxazosin (doxazosin 4 mg oral tablet) 1 Tablet(s), Oral, once a day (at bedtime) finasteride (finasteride 5 mg oral tablet) 1 Tablet(s), Oral, once a day gemfibrozil (gemfibrozil 600 mg oral tablet) 1 Tablet(s), Oral, two times a day insulin aspart (NovoLOG 100 units/mL subcutaneous solution) 15 units, Subcutaneous, three times a day before meals (Vial) Give within 5-10 minutes before a meal. insulin glargine (Lantus 100 units/mL subcutaneous solution) 40 units, Subcutaneous, once a day (at bedtime) lisinopril (lisinopril 40 mg oral tablet) 1 Tablet(s), Oral, once a day losartan (losartan 100 mg oral tablet) 1.5 Tablet(s), Oral, once a day metformin (metformin 1000 mg oral tablet) 1 Tablet(s), Oral, two times a day with meals *predniSONE (predniSONE 10 mg oral tablet) See special instructions, Oral, as directed * You have let us know that you are not taking this medication as listed. Please talk with your primary care provider or the health care provider who prescribed the medication as soon as possible. Stop Taking the Following Medications: Medication list as of 04-19-15 11:43 Attention: If you have any medications at home that are not on this list, DO NOT take them until youcontact your provider for clarification. Give a copy of your medication list to your primary care provider. Update your medication list any time medications or doses are changed and carry your medication list at all times in case of emergency. Electronically Signed By: PETR DIAL CNP Signed On:19-APR-2015 11:43:24 Your Allergies & Intolerances Substance Reaction Symptoms Category Comments doxycycline severe rash Drug penicillin Drug sulfa drugs Drug Your Problem List Problem Status Onset Comments Diabetes mellitus type II Active 11/05/1996 DM Type2 Neuropathy Active 08/24/2008 Hypertension Active Hypercholesterolemia* Active Your Upcoming Appointments Date Time Location Provider No Appointments found Attention: Contact your local Clinic if further appointment detail needed. Diet: Diabetes Food is an important tool that you can use to control diabetes and stay healthy. Eating well-balanced meals in the correct amounts will help you control your blood glucose levels and prevent low blood sugar reactions. It will also help you reduce the health risks of diabetes. A registered dietitian (RD) will explain the diabetes diet and help you plan meals and snacks that are healthy to eat. If you have any questions, do not hesitate to call the dietitian for advice. Guidelines For Success: ?? 60Consult with your doctor before starting a diabetes diet or weight loss program. If you have not yet consulted a dietitian, ask your doctor for a referral. ?? Select foods from the six food groups. Your dietitian will advise you on food choices within eachgroup, serving sizes and how many servings you can have at each meal. ?? Grains, beans and starchy vegetables ?? Vegetables ?? Fruit ?? Milk or yogurt ?? Meats ?? Fats, sweets and alcohol (only a small amount from this group) ?? Monitor your blood sugar levels as requested by your doctor. Take any medicine as prescribed by your doctor. ?? Learn to read nutrition labels and select appropriate portion sizes. ?? Eat only the amount of food in your meal plan. Eat about the same amount of food at regular timeseach day. Do not skip meals. Eat meals 4 to 5 hours apart, with snacks in between. ?? Limit alcohol. It raises blood sugar levels. Drink water or calorie-free diet drinks that use safe sweeteners. ?? Eat less fat to help lower your risk of heart disease. Use non-fat or low-fat dairy products and lean meats. Avoid fried foods. Use cooking oils that are unsaturated. ?? Talk to your rebeamer about safe sugar substitutes. ?? Avoid added salt. It can contribute to high blood pressure, which can cause heart disease. Peoplewith diabetes already have a risk of high blood pressure and heart disease. ?? Maintain a healthy weight. If you need to lose weight, cut down on your portion sizes. But do notskip meals. Exercise is an important part of any weight management program. Talk to your doctor about an exercise program that is right for you. ?? For more information about the best diet plan for you, talk with a registered dietitian (RD). To obtain a referral to an RD in your area, contact: ?? Academy of Nutrition and Dietetics www.eatright.org ?? The [place] [employer] [phone] www.diabetes.org ?? [address], [place] [address]. All rights reserved. This information is not intended as a substitute for professional medical care. Always follow your healthcare professional's instructions. Consider Using Patient Online Services Patient Online [...] you dont have one. Go to [email or web address] and click on Create Your Account. Then, follow the directions to complete the online form. Youll be asked for your [facility] number which you can find at the top of this document. Your Goals/Additional instructions: This document has images extracted. Please consider using triptap for all your patient education needs. Source: [facility] POWERCHART Document Id: [id number] Miscellaneous - Petr Dial APRN, C.N.P. - 04/19/2015 11:43 AM CDT Ambulatory Discharge Medication List [address] [id number] Visit Information Name: BETH COSTA [facility] Number: [id number] Visit Date: 04/19/2015 11:43:43 Attending Provider: PETR DIAL CNP Primary Care Provider: PIERO ROJAS MD [...] Take Indications/Special Instructions/Comments/Notes for Patient Medication Changes/Routing aspirin (aspirin 81 mg oral tablet) 1 Tablet(s), Oral, once a day atorvastatin (atorvastatin 40 mg oral tablet) 1 Tablet(s), Oral, once a day (at bedtime) *budesonide-formoterol (budesonide-formoterol 160 mcg-4.5 mcg/inh inhalation aerosol) 2 puff(s), Inhalation, two times a day doxazosin (doxazosin 4 mg oral tablet) 1 Tablet(s), Oral, once a day (at bedtime) finasteride (finasteride 5 mg oral tablet) 1 Tablet(s), Oral, once a day gemfibrozil (gemfibrozil 600 mg oral tablet) 1 Tablet(s), Oral, two times a day insulin aspart (NovoLOG 100 units/mL subcutaneous solution) 15 units, Subcutaneous, three times a day before meals (Vial) Give within 5-10 minutes before a meal. insulin glargine (Lantus 100 units/mL subcutaneous solution) 40 units, Subcutaneous, once a day (at bedtime) lisinopril (lisinopril 40 mg oral tablet) 1 Tablet(s), Oral, once a day losartan (losartan 100 mg oral tablet) 1.5 Tablet(s), Oral, once a day metformin (metformin 1000 mg oral tablet) 1 Tablet(s), Oral, two times a day with meals *predniSONE (predniSONE 10 mg oral tablet) See special instructions, Oral, as directed * You have let us know that you are not taking this medication as listed. Please talk with your primary care provider or the health care provider who prescribed the medication as soon as possible. Stop Taking the Following Medications: Medication list as of 04-19-15 11:43 Attention: If you have any medications at home that are not on this list, DO NOT take them until youcontact your provider for clarification. Give a copy of your medication list to your primary care provider. Update your medication list any time medications or doses are changed and carry your medication list at all times in case of emergency. Electronically Signed By: PETR DIAL CYLINDER PRESS OPERATOR APPRENTICE Signed On:19-APR-2015 11:43:24 Additional Information: Source: [facility] POWERCHART Document Id: [id number] Miscellaneous - Vashti Mcintosh L.P.NMauro - 04/19/2015 11:42 AM CDT Adult Cube Cutter Intake/History Adult Cube Cutter Intake/History Entered On: 04/19/2015 11:44 CDT Performed On: 04/19/2015 11:42 CDT by VASHTI MCINTOSH LPN Intake Chief Complaint : Wants to talk about diet. Temperature Core : 36.5 DegC(Converted to: 97.7 DegF) Peripheral Pulse Rate : 68 /min Respiratory Rate : 16 /min Heart Rhythm : Regular Systolic Blood Pressure : 146 mmHg (HI) Diastolic Blood Pressure : 72 mmHg NIBP Mean : 97 mmHg BP Location : Left upper extremity Blood Pressure Cuff Size : Large Actual Weight : 110.8 kg(Converted to: 244 lb 4 oz) Weight Source : Standing scale Dosing Weight Clinic : 110.8 kg VASHTI MCINTOSH EMPLOYMENT CONSULTANT - 04/19/2015 11:42 CDT General Info Information Given By : Patient Preferred Communication Mode : Verbal Languages : Pashto Is Patient Female and 13-50 no hysterectomy : No VASHTI MCINTOSH EMPLOYMENT CONSULTANT - 04/19/2015 11:42 CDT Subjective Pain Symptoms : No VASHTI MCINTOSH EMPLOYMENT CONSULTANT - 04/19/2015 11:42 CDT Dependent Habits Tobacco Use/Currently Using : No Exposure to Tobacco Smoke : Other: quit 40 years ago Smoking Status : Former smoker VASHTI MCINTOSH [facility] - 04/19/2015 11:42 CDT Tobacco Use Grid Type : Cigarettes VASHTI MCINTOSH EMPLOYMENT CONSULTANT - 04/19/2015 11:42 CDT Caffeine Use Grid Caffeine Use : Current Type : Coffee Frequency : Daily VASHTI MCINTOSH [facility] - 04/19/2015 11:42 CDT Recreational Drug Use Grid Drug Use : None VASHTI MCINTOSH EMPLOYMENT CONSULTANT - 04/19/2015 11:42 CDT Source: [employer] Document Id: [id number] CDT!37 documented in this encounter Plan of Treatment Not on filedocumented as of this encounter Visit Diagnoses Not on filedocumented in this encounter Additional Health Concerns Assessment Noted Time PHQ-9 Depression Total Score: 6 01/31/2015 12:28 PM CD T documented as of this encounter
--- OUTSIDE RECORDS SUMMARY | 2022-05-21 11:38 | XMS_ITS | Encounter Summary ---
:1945 Author Organization [facility] Address [address] [place] [address] Care Team Providers Name Role Phone Unavailable Primary Care Provider Unavailable Encounter Details Date Type Department Care Team Description 02/09/2015 Hospital Encounter HX [facility] Piero Moya i, M.D. [address] [place] [address] (Wo rk) Social History Tobacco [...] Sign Reading Time Taken Comments Blood Pressure 124/66 02/09/2015 10:12 AM CDT Pulse 100 02/09/2015 10:12 AM CDT Temperature - - Respiratory Rate 14 02/09/2015 10:12 AM CDT Oxygen Saturation - - Inhaled [...] as of this encounter Progress Notes Piero Rojas M.D. - 02/09/2015 9:55 AM CDT [id number] CHIEF COMPLAINT/ REASON FOR VISIT Skin lesion removal. HISTORY OF PRESENT ILLNESS Beth is a 69-year-old male who presents to the clinic today for removal of a skin lesion located onhis left forearm. This spot was evaluated at his physical exam on 01/31/2015, and at that time, Bethreported that the lesion would periodically fall off and then return. In addition, he had had the lesion for at least 3-4 years. It was recommended that he return for biopsy and removal. We also reviewed his recent lab results from 01/31/2015, which were remarkable for a slightly low hemoglobin level of 12.6, elevated glucose level of 245, high cholesterol level of 223, and elevated triglyceride level of 346. Beth also had an elevated hemoglobin A1c of 7.7%. His TSH was only slightly abnormal at 4.52. The patient denies any additional questions or concerns at this time. MEDICATIONS Post-visit Medication Reconciliation Reviewed and are as outlined in the EMR dated 02/09/2015. ALLERGIES Penicillin. Sulfa drugs. Doxycycline causes severe rash. SYSTEMS REVIEW See HPI. PAST MEDICAL/SURGICAL HISTORY 1. Benign prostatic hypertrophy. 2. Diabetes mellitus type 2. 3. Hypertension. 4. Hyperlipidemia type II-B. 5. Erectile dysfunction. 6. Pul[facility] symptomatology[facility], but probably some degree of COPD. 7. [facility]. 8. Tonsillectomy. 9. AGNIESZKA, prescribed CPAP therapy but is currently not using. PREVENTIVE SERVICES: Tobacco use: None. VITAL SIGNS TEMP: 36.5 Deg C. PULSE: 100 /min. RESP: 14 /min. SYSTOLIC: 124 mmHg. DIASTOLIC: 66 mmHg. PHYSICAL EXAMINATION GENERAL: Patient is alert and oriented times three, in no acute distress, good hygiene and is dressed appropriately. SKIN: On the left forearm, there is a 1 cm area of thickened, crusty skin with no surrounding redness or ulceration. PROCEDURE NOTE: Shave Biopsy Risks and benefits outlined with the patient. During this procedure the universal protocol was utilized. The patient's identity was confirmed by no less than two patient identifiers, correct procedure was verified, correct site was verified and marked as applicable and a final pause was completed. Patient was anesthetized with 2 mL 2% lidocaine with epinephrine just underneath the skin lesion on his left forearm. He was cleansed with betadine solution. Once adequate anesthesia was obtained, a Bunnell blade was used to shave the entire lesion from the epidermal region. Tissue was sent to pathologyfor evaluation. Topical antibiotic applied and pressure bandage. He can remove the bandage tomorrow morning. Continue to bathe normally. Apply topical antibiotic and cover with bandage until the area is healed. IMPRESSION/REPORT/PLAN 1. Skin lesion, most likely benign. Shave biopsy was performed today as indicated above in the procedure note. He will be contacted with the results from the biopsy in approximately one week. 2. Follow up: The patient will contact the clinic with any new or worsening symptoms. This document serves as a record of services personally performed by Piero Roy MD. It was created on their behalf by Maria Luisa Alonso, a trained medical front desk specialist. The creation of this record is basedon the scribe's personal observations and the provider's statements to them. This document has been c hecked and approved by the attending provider. Piero Hinton M.D./cam Electronically Signed By: PIERO ROJAS MD On: 05/22/2015 06:34 PM Source: [facility] MHSDOLBEYNONRADSYS Document Id: [id number] documented in this encounter Miscellaneous Notes Miscellaneous - Piero Rojas M.D. - 02/15/2015 5:46 PM CDT Addendum by BO CALDWELL on 16 Feb 2015 09:01:52 CDT Patient notified. From: PIERO ROJAS MD To: LAWSON Roy Nurse; Sent: 02/15/2015 17:46:53 CDT Please inform Mr. Duran that the skin lesion was benign. Source: [facility] Event[employer]orbet Document Id: [id number] Miscellaneous - Piero Rojas M.D. - 02/09/2015 4:54 PM CDT Ambulatory Patient Summary [address] [id number] Visit Information Name: BETH DURAN [facility] Number: [id number] Current Date: 02/09/2015 16:54:29 Physicians Attending Provider: PIERO ROJAS MD Primary Care Provider: PIERO ROJAS MD BETH DURAN has been given the following list of [...] tablet) 1 Tablet(s), Oral, once a day fluticasone nasal (fluticasone 50 mcg/inh nasal spray) 2 Kite(s), Nostrils(Both), once a day gemfibrozil (gemfibrozil 600 mg [...] the Following Medications: Medication list as of 02-09-15 16:54 Attention: If you have any medications at home that are not on this list, DO NOT take them until youcontact your provider for clarification. Give a copy of your medication list to your primary care provider. Update your medication list any time medications or doses are changed and carry your medication list at all times in case of emergency. Electronically Signed By: PIERO ROJAS MD Signed On:09-FEB-2015 16:52:46 Your Allergies & Intolerances Substance Reaction Symptoms Category Comments doxycycline severe rash Drug penicillin Drug sulfa drugs Drug Your Problem List Problem Status Onset Comments Diabetes mellitus type II Active 11/05/1996 DM Type2 Active 08/24/2008 DM Type2 Neuropathy Active 08/24/2008 Hypertension Active Hypercholesterolemia* Active Your Upcoming Appointments Date Time Location Provider No Appointments found Attention: Contact your local Clinic if further appointment detail needed. Your Goals/Additional instructions: Source: [facility] POWERCHART Document Id: [id number] Miscellaneous - Piero Rojas M.D. - 02/09/2015 4:54 PM CDT Ambulatory Discharge Medication List [address] [id number] Visit Information Name: BETH DURAN [facility] Number: [id number] Visit Date: 02/09/2015 16:54:27 Attending Provider: PIERO ROJAS MD Primary Care Provider: PIERO ROJAS MD BETH DURAN has been given the following list of [...] tablet) 1 Tablet(s), Oral, once a day fluticasone nasal (fluticasone 50 mcg/inh nasal spray) 2 Kite(s), Nostrils(Both), once a day gemfibrozil (gemfibrozil 600 mg [...] the Following Medications: Medication list as of 02-09-15 16:54 Attention: If you have any medications at home that are not on this list, DO NOT take them until youcontact your provider for clarification. Give a copy of your medication list to your primary care provider. Update your medication list any time medications or doses are changed and carry your medication list at all times in case of emergency. Electronically Signed By: PIERO ROJAS MD Signed On:09-FEB-2015 16:52:46 Additional Information: Source: [facility] POWERCHART Document Id: [id number] Miscellaneous - Kitty Sexton, LMauroPMauroN. - 02/09/2015 10:12 AM CDT Adult Awning Erector Intake/History Adult Awning Erector Intake/History Entered On: 02/09/2015 10:17 CDT Performed On: 02/09/2015 10:12 CDT by KITTY SEXTON Intake Chief Complaint : lesion removal Temperature Core : 36.5 DegC(Converted to: 97.7 DegF) Peripheral Pulse Rate : 100 /min Respiratory Rate : 14 /min Systolic Blood Pressure : 124 mmHg Diastolic Blood Pressure : 66 mmHg NIBP Mean : 85 mmHg BP Location : Right upper extremity Blood Pressure Cuff Size : Large KITTY SEXTON - 02/09/2015 10:12 CDT General Info Information Given By : Patient Languages : Belgian Is Patient Female and 13-50 no hysterectomy : No KITTY SEXTON - 02/09/2015 10:12 CDT Subjective Pain Symptoms : No KITTY SEXTON - 02/09/2015 10:12 CDT Dependent Habits Tobacco Use/Currently Using : No Smoking Status : Former smoker KITTY SEXTON - 02/09/2015 10:12 CDT Tobacco Use Grid Type : Cigarettes KITTY SEXTON - 02/09/2015 10:12 CDT Caffeine Use Grid Caffeine Use : Current Type : Coffee Frequency : Daily KITTY SEXTON - 02/09/2015 10:12 CDT Recreational Drug Use Grid Drug Use : None KITTY SEXTON 02/09/2015 10:12 CDT ID Screen Drug Resistant Organism : No Travel Within Last 21 Days : No Contact with someone with Ebola : No KITTY SEXTON 02/09/2015 10:12 CDT [facility] Document Id: [id number] CDT!35 Miscellaneous - Piero Rojas M.D. - 02/05/2015 10:39 PM CDT Addendum by JOSE BAGLEY LPN on 06 Feb 2015 10:53:56 CDT mailed to pt From: PIERO ROJAS MD To: LAWSON Roy Nurse; Sent: 02/05/2015 22:39:02 CDT Please call Mr. Duran. His thyroid test is very slightly abnormal and not likely the cause of fatigue. We'll check it again in 6 months. The A1 is elevated at 7.7 and I suspect it will improve with the changes we discussed. The cholesterol is elevated. He should increase the Atorvastatin to 60 mg or 1 1/2 tabs and recheck the cholesterol panel in 8 weeks. [facility] Document Id: [id number] documented in this encounter Plan of Treatment Not on filedocumented as of this encounter Procedures Procedure Name Priority Date/Time Associated Diagnosis Comme nts SURGICAL PATHOLOGY Routine 02/09/2015 11:22 AM Re sults for this CDT procedure are i n the results section. documented in this encounter Results Pathology Surgical Pathology (02/09/2015 11:22 AM CDT) Specimen (Source) Anatomical Collection Method Collection Time Re ceived Time Location / / Volume Laterality 02/09/2015 11:22 AM CDT Narrative [facility] - 02/13/2015 9:58 AM CDT [facility] in [address] [place] [id number] Patient Name: BETH DURAN Patient ID #: [id number] Collected: 02/09/2015 Address: City/State/Zip: [address] [place] [address] ??[phone] Received: Reported: 02/10/2015 02/13/2015 Soc. Sec. #: ?/Age/Sex 1945 (Age: 69) ??M Physician(s): IRENA HINTON MD Copy To: ? 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 [facility]/02/13/2015 JOSE KHAN M.D. Report electronically released. Interpretation by JOSE KHAN M.D. SPECIMEN(S) RECEIVED: LEFT FOREARM LESION GROSS DESCRIPTION: Consists of a 3 mm skin fragment. Carlos OLMSTEAD, one cassette. ([id number]) [facility]/02/10/2015 MICROSCOPIC DESCRIPTION: Reviewed by Jose Khan M.D.; Path ologist [facility]/02/13/2015 Piero Alejandro M.D. LAB SURG PATH ORDERABL ES Performing Organization Address City/State/ZIP Code Phon e Number [facility] documented in this encounter Visit Diagnoses Not on filedocumented in this encounter Additional Health Concerns Assessment Noted Time PHQ-9 Depression Total Score: 6 01/31/2015 12:28 PM CD T documented as of this encounter
--- OUTSIDE RECORDS SUMMARY | 2022-05-21 11:38 | XMS_ITS | Encounter Summary ---
:1945 Author Organization [facility] Address [address] [place] [address] Care Team Providers Name Role Phone Unavailable Primary Care Provider Unavailable Encounter Details Date Type Department Care Team Description 02/09/2015 Hospital Encounter HX NO MAPPING Ewa Alejandro M.D. [address] [place], [place] [phone] (Wo rk) Social History [...] do you attend judaism or Never 2021 yazidism services? 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 However, the narrative phrase printed from the coding software may appear abbreviated, or result in slightly different terminology. Coded By: CHRISTINA LYMAN Date Saved: 02/21/2015 03:40 pm [facility] Document Id: [id number] documented in this encounter Plan of Treatment Not on filedocumented as of this encounter Visit Diagnoses Not on filedocumented in this encounter Additional Health Concerns Assessment Noted Time PHQ-9 Depression Total Score: 6 01/31/2015 12:28 PM CD T documented as of this encounter
--- OUTSIDE RECORDS SUMMARY | 2022-05-21 11:38 | XMS_ITS | Encounter Summary ---
:1945 Author Organization [facility] Address [address] [place] [address] Care Team Providers Name Role Phone Unavailable Primary Care Provider Unavailable Encounter Details Date Type Department Care Team Description 11/06/2015 Hospital Encounter HX [facility] Piero Moya i, M.D. [address] [place] [phone] (Wo rk) Social History Tobacco [...] do you attend pentecostalism or Never 2021 religion services? Do you [...] Reading Time Taken Comments Blood Pressure 130/60 11/06/2015 11:31 AM SCIENTIFIC MANAGER Pulse 84 11/06/2015 11:31 AM SCIENTIFIC MANAGER Temperature - - Respiratory Rate 26 11/06/2015 11:31 AM SCIENTIFIC MANAGER Oxygen Saturation - - Inhaled Oxygen Concentration - - Weight 112 kg (246 lb 14.6 oz) 11/06/2015 11:31 AM SCIENTIFIC MANAGER Height - - Body Mass Index 30.7 01/31/2015 9:26 AM CDT documented in this [...] encounter Progress Notes Piero Rojas M.D. - 11/06/2015 10:44 AM CST [id number] CHIEF COMPLAINT/ REASON FOR VISIT Lightheadedness. HISTORY OF PRESENT ILLNESS Beth is a 70 year old female who presents to the clinic today for lightheadedness. Last week after walking the distance of a block he had difficulty stepping up into his tractor. He realized that he felt lightheaded and after waiting a bit and he was able to get up into the tractor. Beth had anotherepisode last week where he felt lightheaded and off-balance. He is always feeling numb, has poor balance and is nauseated this is present frequently to some extent but more so with exertion. Beth had not been feeling this way two weeks ago. He is not feeling out of breath but feels like it takes morework to do things. He has been much more tired over this period of time. During one of these episodes he had difficulty forming words to speak to someone. He states that this feeling is different from when his blood sugar is off. The patient denies any additional questions or concerns at this time. MEDICATIONS Post-visit Medication Reconciliation Reviewed and are as outlined in the EMR dated 11/06/2014. ALLERGIES Penicillin. Sulfa drugs. Doxycycline causes severe [...] Status post left cataract surgery at the [facility]. 8. Tonsillectomy. 9. AGNIESZKA, prescribed CPAP therapy but is currently not using. PREVENTIVE SERVICES Tobacco use: none. VITAL SIGNS WEIGHT: 112 kg. TEMP: 36.8 Deg C. PULSE: 84 /min. RESP: 26 /min. SpO2: 93%. SYSTOLIC: 130 mmHg. DIASTOLIC: 60 mmHg. PHYSICAL EXAMINATION GENERAL: Patient is alert and oriented times three, in no acute distress, good hygiene and is dressed appropriately. NECK: Is without adenopathy. LYMPH NODES: Not palpably enlarged and no nodules are palpated. HEART: Regular rate and rhythm without murmur. LUNGS: Clear to auscultation. ABDOMEN: Soft and nontender with no masses. EXTREMITIES: Within normal limits. DIAGNOSTICS: EKG results: reviewed, shows no acute abnormalities. Chest x-ray results: pending. IMPRESSION/REPORT/PLAN 1. Episodes of lightheadedness concerning for anginal equivalent. EKG was obtained. Will also obtaina chest x-ray and blood work including BMP and CBC. Stress test at [facility]. 2. Above symptoms could also be suggestive of cerebral vascular disease. Will obtain carotid ultrasound. 3. Follow up. The patient will contact the clinic with any new or worsening symptoms. This document serves as a record of services personally performed by Piero Roy MD. It was created on their behalf by Lulu Roldan, a trained manager of medical. The creation of this record is based on the scribe's personal observations and the provider's statements to them. This document has been christie cked and approved by the attending provider. Piero Hinton M.D./livia Electronically Signed By: PIERO ROJAS MD On: 11/08/2015 10:06 PM Source: [facility] [id number] Document Id: [id number] NTIFIC MANAGER documented in this encounter Miscellaneous Notes Miscellaneous - Piero Rojas M.D. - 11/20/2015 2:31 PM SCIENTIFIC MANAGER Addendum by JACQUIE SANCHEZ LPN on 20 November 2015 15:14:47 SCIENTIFIC MANAGER order and referal sent to [facility] and patient notified From: PIERO ROJAS MD To: LAWSON Roy Nurse; Sent: 11/20/2015 14:31:32 SCIENTIFIC MANAGER Beth needs an MRI brain and would like an order sent to [facility] in [place], [place]. Fax there is [phone] Please call Diallo to let her know the order has been faxed. Source: [facility] 911 View Document Id: [id number] Carencellaneous - Piero Rojas M.D. - 11/20/2015 2:29 PM SCIENTIFIC MANAGER MRI brain with contrast to evaluate possible TIA. Electronically Signed By: PIERO ROJAS MD On: 11/20/2015 02:29 PM Source: [facility] CHROMAomCHART Document Id: [id number] NTIFIC MANAGER Miscellaneous - Piero Rojas M.D. - 11/12/2015 4:45 PM SCIENTIFIC MANAGER Ambulatory Patient Summary [address] [id number] Visit Information Name: BETH DURAN [facility] Number: [id number] Current Date: 11/12/2015 16:45:14 Physicians Attending Provider: PIERO ROJAS MD Primary [...] you have problems taking your medications. Medication/Strength Dose Route Frequency Indications/Special Instructions/Comments/Notes insulin glargine (Lantus 100 units/mL subcutaneous solution) 40 units Subcutaneous once a day (at bedtime) insulin aspart (NovoLOG 100 units/mL subcutaneous solution) 15 units Subcutaneous three times a day before meals (Vial) Give within 5-10 minutes before a meal. losartan (losartan 100 mg oral tablet) 150 mg Oral once a day atorvastatin (atorvastatin 40 mg oral tablet) 40 mg Oral once a day (at bedtime) doxazosin (doxazosin 4 mg oral tablet) 4 mg Oral once a day (at bedtime) budesonide-formoterol (budesonide-formoterol 160 mcg-4.5 mcg/inh inhalation aerosol) 2 puff(s) Inhalation two times a day *predniSONE (predniSONE 10 mg oral tablet) See special instructions Oral as directed finasteride (finasteride 5 mg oral tablet) 5 mg Oral once a day metformin (metformin 1000 mg oral tablet) 1 tab(s) Oral two times a day with meals aspirin (aspirin 81 mg oral tablet) 1 tab(s) Oral once a day * You have let us know that you are not taking this medication as listed. Please talk with your primary care provider or the health care provider who prescribed the medication as soon as possible. Attention: If you have any medications at [...] Electronically Signed By: PIERO ROJAS MD Signed On:12-NOV-2015 16:45:07 Your Allergies & Intolerances Substance Reaction Symptoms [...] if you dont have one. Go to [email or web address] and click on Create Your Account. Then, follow the directions to complete the online form. Youll be asked for your [facility] number which you can find at the top of this document. Your Goals/Additional instructions: Source: [facility] POWERCHART Document Id: [id number] NTIFIC MANAGER Miscellaneous - Piero Rojas M.D. - 11/12/2015 4:45 PM SCIENTIFIC MANAGER Ambulatory Discharge Medication List [address] [id number] Visit Information Name: BETH DURAN [facility] Number: [id number] Visit Date: 11/12/2015 16:45:13 Attending Provider: PIERO ROJAS MD Primary Care Provider: PIERO ROJAS MD BETH DURAN has been given the following list of medications: Your Medications It is important to take your medications as directed. Use a pill box or chart to help remind you to take your medications. Please let your doctor or nurse know if you have problems taking your medications. Medication/Strength Dose Route Frequency Indications/Special Instructions/Comments/Notes insulin glargine (Lantus 100 units/mL subcutaneous solution) 40 units Subcutaneous once a day (at bedtime) insulin aspart (NovoLOG 100 units/mL subcutaneous solution) 15 units Subcutaneous three times a day before meals (Vial) Give within 5-10 minutes before a meal. losartan (losartan 100 mg oral tablet) 150 mg Oral once a day atorvastatin (atorvastatin 40 mg oral tablet) 40 mg Oral once a day (at bedtime) doxazosin (doxazosin 4 mg oral tablet) 4 mg Oral once a day (at bedtime) budesonide-formoterol (budesonide-formoterol 160 mcg-4.5 mcg/inh inhalation aerosol) 2 puff(s) Inhalation two times a day *predniSONE (predniSONE 10 mg oral tablet) See special instructions Oral as directed finasteride (finasteride 5 mg oral tablet) 5 mg Oral once a day metformin (metformin 1000 mg oral tablet) 1 tab(s) Oral two times a day with meals aspirin (aspirin 81 mg oral tablet) 1 tab(s) Oral once a day * You have let us know that you are not taking this medication as listed. Please talk with your primary care provider or the health care provider who prescribed the medication as soon as possible. Attention: If you have any medications at home that are not on this list, DO NOT take them until youcontact your provider for clarification. Give a copy of your medication list to your primary care provider. Update your medication list any time medications or doses are changed and carry your medication list at all times in case of emergency. Electronically Signed By: PIERO RJOAS MD Signed On:12-NOV-2015 16:45:07 Additional Information: Source: [facility] POWERCHART Document Id: [id number] NTIFIC MANAGER Miscellaneous - Jacquie Sanchez, L.P.N. - 11/06/2015 11:31 AM CST Adult Cop Winder Intake/History Adult Cop Winder Intake/History Entered On: 11/06/2015 11:33 SCIENTIFIC MANAGER Performed On: 11/06/2015 11:31 SCIENTIFIC MANAGER by JACQUIE SANCHEZ POLYMERIZATION ENGINEER Intake Chief Complaint : light headedness and nausea for 1 week Temperature Core : 36.8 DegC(Converted to: 98.2 DegF) Peripheral Pulse Rate : 84 /min Respiratory Rate : 26 /min (HI) Systolic Blood Pressure : 130 mmHg Diastolic Blood Pressure : 60 mmHg NIBP Mean : 83 mmHg BP Location : Left upper extremity Blood Pressure Cuff Size : Large Actual Weight : 112 kg(Converted to: 246 lb 15 oz) Weight Source : Standing scale Dosing Weight Clinic : 112 kg JACQUIE SANCHEZ POLYMERIZATION ENGINEER - 11/06/2015 11:31 SCIENTIFIC MANAGER General Info Information Given By : Patient Preferred Communication Mode : Verbal Languages : Angolan Is Patient Female and 13-50 no hysterectomy : No JACQUIE SANCHEZ POLYMERIZATION ENGINEER - 11/06/2015 11:31 SCIENTIFIC MANAGER Subjective Pain Symptoms : No JACQUIE SANCHEZ [facility] - 11/06/2015 11:31 SCIENTIFIC MANAGER Dependent Habits Exposure to Tobacco Smoke : Other: quit 40 years ago Smoking Status : Former smoker Tobacco 2A : Yes Tobacco Use/Currently Using : No Tobacco Use/Last 30 Days : No Tobacco Use/Last 12 months : No JACQUIE SANCHEZ [facility] - 11/06/2015 11:31 SCIENTIFIC MANAGER Caffeine Use Grid Caffeine Use : Current Type : Coffee Frequency : Daily JACQUIE SANCHEZ LPN - 11/06/2015 11:31 SCIENTIFIC MANAGER Recreational Drug Use Grid Drug Use : None JACQUIE SANCHEZ [facility] - 11/06/2015 11:31 SCIENTIFIC MANAGER Source: [employer] Document Id: [id number] SCIENTIFIC MANAGER!36 NTIFIC MANAGER documented in this encounter Plan of Treatment Not on filedocumented as of this encounter Procedures Procedure Name Priority Date/Time Associated Diagnosis Comme nts US CAROTID Routine 11/06/2015 1:29 PM Results f or this BILATERAL SCIENTIFIC MANAGER procedure are i n the results section. CBC WITHOUT Routine 11/06/2015 12:40 PM Results for this DIFFERENTIAL, B SCIENTIFIC MANAGER procedure ar e in the results section. BASIC METABOLIC Routine 11/06/2015 12:40 PM Resul ts for this PANEL, S/P SCIENTIFIC MANAGER procedure are i n the results section. DX CHEST AP OR PA Routine 11/06/2015 12:21 PM Res ults for this AND LATERAL 2 VIEWS SCIENTIFIC MANAGER procedur e are in the results section. documented in this encounter Results US Carotid Bilateral (11/06/2015 1:29 PM SCIENTIFIC MANAGER) Anatomical Region Laterality Modality Head and Neck Bilateral Ultrasound Specimen (Source) Anatomical Collection Method Collection Time Re ceived Time Location / / Volume Laterality 11/06/2015 1:29 PM SCIENTIFIC MANAGER Addenda Addendum by Provider, Pato Chase o theo 11/06/2015 1:29 PM SCIENTIFIC MANAGER RAD^^^OW US Carotid Duplex Bilat 11/06/2015 13:29:50 Narrative 11/06/2015 2:30 PM SCIENTIFIC MANAGER EXAM: US Carotid Duplex Bilat INDICATION: episodes of lightheadedness and word finding difficulties. Reason for exam as above. Duplex scan of the x performed using B-m ode/grayscale imaging and Doppler spectral analysis and color flow . Examination of right carotid system show s moderate plaque formation. 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 Velocities as follows: L CCA peak velocity: 87 cm/sec L ICA Prox psv: 49 cm/sec L ICA Mid psv: 73 cm L ICA Dist psv: 69 cm/sec L ECA psv: 91 cm/s L Vertebral 47cm/sec flow antegrade L ICA/CCA: 1.1 consistent with mild dise ase of less than 50% stenosis Impression: No hemodynamically significa nt stenosis. Procedure Note MathewMelquiades herndon M.D. / Provider, Mariluz vanegas M.D. - 01/31/2017 EXAM: US Carotid Duplex Bilat INDICATION: episodes of lightheadedness and word finding difficulties. Reason for exam as above. Duplex scan of the x performed using B-m ode/grayscale imaging and Doppler spectral analysis and color flow . Examination of right carotid system show s moderate plaque formation. 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 Velocities as follows: L CCA peak velocity: 87 cm/sec L ICA Prox psv: 49 cm/sec L ICA Mid psv: 73 cm L ICA Dist psv: 69 cm/sec L ECA psv: 91 cm/s L Vertebral 47cm/sec flow antegrade L ICA/CCA: 1.1 consistent with mild dise ase of less than 50% stenosis Impression: No hemodynamically significa nt stenosis. Kory Perez R.V.T.SMauro IMG US PROCEDURES (ABNORMAL) CBC without Differential (11/06/2015 12:40 PM SCIENTIFIC MANAGER) Analysis Performed At Patho logist Time Signature Leukocytes 6.4 3.5 - 10.5 POWERCHART X109L Erythrocytes 4.18 (L) 4.32 - POWERCHART 5.72 [id number] Hemoglobin 12.7 (L) 13.5 - POWERCHART 17.5 GDL Hematocrit 36.3 (L) 38.8 - POWERCHART 50.0 MCV 86.8 81.0 - POWERCHART 95.0 FL Platelet Count 214 150 - 450 POWERCHART X109L HX RDW 12.5 11.8 - POWERCHART 15.6 Specimen (Source) Anatomical Collection Method Collection Time Re ceived Time Location / / Volume Laterality Blood 11/06/2015 12:40 PM SCIENTIFIC MANAGER Piero Alejandro M.D. LAB BLOOD ADD-ON Performing Organization Address City/State/ZIP Code Phon e Number POWERCHART (ABNORMAL) BMP (Basic Metabolic Panel) (11/06/2015 12:40 PM SCIENTIFIC MANAGER) P athologist Signature Anion Gap 14 7 - 15 POWERCHART [facility] BUN (Blood Urea 29 (H) 8 - 24 POWERCHART Nitrogen), S MGDL Chloride, S 97 (L) 98 - 107 POWERCHART [facility] CO2 Total 24 22 - 29 POWERCHART [facility] Creatinine 1.1 0.8 - 1.3 POWERCHART MGDL Glucose 228 (H) 70 - 139 POWERCHART MGDL Calcium, Total, 10.2 8.8 - 10.3 POWERCHART S MGDL Sodium, S 135 135 - 145 POWERCHART [facility] Potassium, S 4.2 3.6 - 5.2 POWERCHART [facility] HXeGFR (MDRD) >60 >=60 POWERCHART [id number] eGFR >60 >=60 POWERCHART Black/ [id number] Syrian Specimen (Source) Anatomical Collection Method Collection Time Re ceived Time Location / / Volume Laterality Blood 11/06/2015 12:40 PM SCIENTIFIC MANAGER Piero Alejandro M.D. LAB BLOOD ADD-ON Performing Organization Address City/State/ZIP Code Phon e Number POWERCHART DX Chest Anterior Posterior or Posterior Anterior and Lateral 2 Views (11/06/2015 12:21 PM SCIENTIFIC MANAGER) Anatomical Region Laterality Modality Chest N/A Radiographic Imaging Specimen (Source) Anatomical Collection Method Collection Time Re ceived Time Location / / Volume Laterality 11/06/2015 12:21 PM SCIENTIFIC MANAGER Addenda Addendum by Provider, Pato Chase 11/06/2015 12:21 PM SCIENTIFIC MANAGER RAD^^^OW XR Chest 2 Views 11/06/2015 12:21:42 Impressions 11/06/2015 12:52 PM SCIENTIFIC MANAGER ??No acute findings. Narrative 11/06/2015 12:52 PM SCIENTIFIC MANAGER EXAM: ??XR Chest 2 Views AGE: ??70 years old. GENDER: ??Male. INDICATION: ??lightheadedness; not other rinaldi specified. COMPARISON: ??October 16, 2009 FINDINGS: ??No focal areas consolidation . No pneumothorax. Moderately prominent degenerative change s mid, lower thoracic spine. Deep inspiration versus possible hyperin flation. Procedure Note Collin Adhikari M.D. / Provider, Sahil jordan M.D. - 01/31/2017 EXAM: XR Chest 2 Views AGE: [age] years old. GENDER: Male. INDICATION: lightheadedness; not otherwi se specified. COMPARISON: October 16, 2009 FINDINGS: No focal areas consolidation. No pneumothorax. Moderately prominent degenerative change s mid, lower thoracic spine. Deep inspiration versus possible hyperin flation. IMPRESSION: No acute findings. Historical Provider IMG DIAGNOSTIC IMAGING PROCE DURES documented in this encounter Visit Diagnoses Not on filedocumented in this encounter Additional Health Concerns Assessment Noted Time PHQ-9 Depression Total Score: 6 01/31/2015 12:28 PM CD T documented as of this encounter
--- OUTSIDE RECORDS SUMMARY | 2022-05-21 11:38 | XMS_ITS | Encounter Summary ---
:1945 Author Organization [facility] Address [address] [place] [address] Care Team Providers Name Role Phone Unavailable Primary Care Provider Unavailable Encounter Details Date Type Department Care Team Description 11/22/2015 Hospital Encounter HX [facility] Ewa Marte M.D. [address] [place], [place] [phone] (Wo rk) Social History [...] do you attend restoration or Never 2021 sabianist services? Do you [...]
--- OUTSIDE RECORDS SUMMARY | 2022-05-21 11:38 | XMS_ITS | Encounter Summary ---
:1945 Author Organization [facility] Address [address] [place] [address] Care Team Providers Name Role Phone Unavailable Primary Care Provider Unavailable Encounter Details Date Type Department Care Team Description 04/29/2016 Hospital Encounter HX NO MAPPING Ewa Alejandro M.D. [address] [place], [place] [phone] (Wo rk) Social History [...] do you attend cheondoism or Never 2021 gnosticism services? Do you [...]
--- OUTSIDE RECORDS SUMMARY | 2022-05-21 11:38 | XMS_ITS | Encounter Summary ---
:1945 Author Organization [facility] Address [address] [place] [address] Care Team Providers Name Role Phone Unavailable Primary Care Provider Unavailable Encounter Details Date Type Department Care Team Description 04/29/2016 Hospital Encounter HX [facility] Piero Grier M.D. [address] [place], [place] [phone] (Wo rk) Social History [...] do you attend uatsdin or Never 2021 mandaen services? Do you [...] of this encounter Miscellaneous Notes Miscellaneous - Prudence Peralta L.P.N. - 05/01/2016 5:29 PM CDT *General Message From: PRUDENCE PERALTA LPN ( Urology Nurse) Sent: 05/01/2016 17:29:53 CDT Subject: *General Message Patient contacted. Earlier today unable to leave a message for patient. Patient s cell phone mailbox has not been established. Patient was encouraged to contact [facility] radiology scheduling tomorrow to schedule CT Urogram ordered by Dr. Roy. Source: Cellworks Document Id: [id number] Electronically signed by Conversion, [employer] President [employer] [id number] at 02/23/2017 3:20 AM CDT Miscellaneous - Prudence Peralta L.P.N. - 05/01/2016 5:17 PM CDT *General Message From: PRUDENCE PERALTA LPN ( Urology Nurse) Sent: 05/01/2016 17:17:51 CDT Subject: *General Message Referral request recieved by PSA to schedule patient with Dr. Luevano for evaluation of hematuria. Phone conversation with Marti nurse for Dr. Lawson . Marti will check if orders sent to [facility] for CT urogram and if patient has had creatinine completed. Marti notified that patient can be scheduled for Urology evaluation as soon as imaging is completed if Urology is notifiesd when Ct will be completed. Source: [employer] Document Id: [id number] Electronically signed by [employer], [employer] President [employer] [id number] at 02/23/2017 3:20 AM CDT Piero Otoole M.D. - 04/30/2016 10:25 PM CDT Addendum by MARTI SANCHEZ LPN on May 03, 2016 16:44:33 CDT creat completed along with ct urogram Addendum by PIERO WEISS MD on May 01, 2016 16:30:27 CDT From: PIERO WEISS MD To: MARTI SANCHEZ LPN; Sent: 05/01/2016 16:30:27 CDT Subject: RE: needs orders for creat entered Addendum by MARTI SANCHEZ LPN on May 01, 2016 15:16:23 CDT From: MARTI SANCHEZ LPN To: PIERO WEISS MD; Sent: 05/01/2016 15:16:23 CDT ! Subject: needs orders for creat Addendum by MARTI SANCHEZ LPN on May 01, 2016 15:16:01 CDT patient notified of culture results. call received from dr luevano office patient needs orders fora creat level prior to any testing. please add orders into emr due to patient coming into clinic on 05/02/2016 for labs From: PIERO WEISS MD To: MARTI SANCHEZ LPN; Sent: 04/30/2016 22:25:29 CDT Please inform Jonnathan that the urine culture is negative. Has the CT urogram been scheduled? Source: [facility] POWERCHART Document Id: [id number] Electronically signed by Karen [facility] President [employer] [id number] at 02/23/2017 3:20 AM CDT Miscellaneous - Piero Weiss M.D. - 04/29/2016 2:15 PM CDT Addendum by MARTI SANCHEZ LPN on April 30, 2016 09:50:15 CDT patient notified Addendum by PIERO WEISS MD on April 29, 2016 17:29:04 CDT From: PIERO WEISS MD To: MARTI SANCHEZ LPN; Sent: 04/29/2016 17:29:04 CDT Subject: RE: no evidence so far for an infection. Addendum by MARTI SANCHEZ LPN on April 29, 2016 17:07:25 CDT From: MARTI SANCHEZ LPN To: PIERO WEISS MD; Sent: 04/29/2016 17:07:25 CDT Subject: FW: Addendum by MARTI SANCHEZ LPN on April 29, 2016 17:06:44 CDT patient requested i inform pcp that he feels he has a lung infection and is asking if urine showed a viral infection please advise From: PIERO WEISS MD To: MARTI SANCHEZ LPN; Sent: 04/29/2016 14:15:43 CDT Please inform Jonnathan that the urine showed blood only. Culture is still pending. We should set him upfor CT urogram and order a urine cytology and urology consult. Please order the CT urogram at D1. I'll order the cytology. Hopefully it can be added to the urine done this morning. Source: [facility] POWERCHART Document Id: [id number] Electronically signed by Conversion, [facility] President [employer] [id number] at 02/23/2017 3:20 AM CDT documented in this encounter Plan of Treatment Not on filedocumented as of this encounter Procedures Procedure Name Priority Date/Time Associated Comments Diagnosis ZZPATHOLOGY NON-METAL POLISHER Routine 04/29/2016 8:58 AM Re sults for this CYTOLOGY CDT procedure are i n the results section. HXUR % DYSMORPHIC RBC Routine 04/29/2016 8:46 AM Results for this CDT procedure are i n the results section. URINALYSIS WITH Routine 04/29/2016 8:46 AM Result s for this MICROSCOPIC CDT procedure are i n the results section. BACTERIAL CULTURE, Routine 04/29/2016 8:46 AM Res ults for this AEROBIC, URINE CDT procedure are in the results section. documented in this encounter Results ZZPATHOLOGY NON-METAL POLISHER CYTOLOGY (04/29/2016 8:58 AM CDT) Specimen (Source) Anatomical Collection Method Collection Time Re ceived Time Location / / Volume Laterality 04/29/2016 8:58 AM CDT Narrative [facility] LAB - 04/30/2016 11:14 AM CDT [facility] [place] [address] [place] [address] ??[phone] Patient Name: JONNATHAN COSTA Patient ID #: [id number] Collected: 04/29/2016 Address: [facility]/State/Zip: [address] [place], [place] ??[id number] Received: Reported: 04/30/2016 04/30/2016 Soc. Sec. #: ?/Age/Sex 1 (Age: 70) ??M Physician(s): IRENA HERNANDEZ MD Copy To: ? [facility] ??[id number] [facility] [place], ??[place] ??[address] CYTOPATHOLOGY NON-METAL POLISHER REPORT FINAL CYTOLOGIC DIAGNOSIS Urine-VOIDED: DIAGNOSIS ATYPICAL UROTHELIAL CELLS CONSISTENT WIT H INFLAMMATION, CALCULUS, RECENT INSTRUMENTATION OR LOW GRADE PAPILLARY LESION. SATISFACTORY SPECIMEN FOR EVALUATION. Electronically Signed By [facility]/04/30/2016 JOVANNY LACY M.D. [facility](ASCP) SPECIMEN(S) RECEIVED: Urine-VOIDED CLINICAL HISTORY: GROSS HEMATURIA GROSS DESCRIPTION: 2 CYTOSPINS PREPARED FROM 10 ML OF CLOUD Y PALE YELLOW FLUID. Piero Alejandro M.D. LAB PATHOLOGY/CYTOLOGY ORDERABLES Performing Organization Address City/[facility]/ZIP Code Phon e Number [facility] LAB HXUR % DYSMORPHIC RBC (04/29/2016 8:46 AM CDT) P athologist Signature Dysmorphic RBC <=25 <=25 POWERCHART Specimen Anatomical Collection Method Collection Time Receive d Time (Source) Location / / Volume Laterality Urine, First 04/29/2016 8:46 AM 6 8:46 Voided CDT AM CDT Piero Alejandro M.D. LAB HISTORICAL ORDERS Performing Organization Address City/[facility] Code Phon e Number POWERCHART (ABNORMAL) Urinalysis, Complete, Includes Microscopic (04/29/2016 8:46 AM CDT) Patholo gist Method Time Signature Clarity Clear Clear POWERCHART HXUr Color Yellow Colorless POWERCHART Specific 1.020 POWERCHART [place], POCT, U pH, POCT, Urine 5.5 <5.0 POWERCHART Protein, Ur, Dip Trace Negative POWERCHART MGDL Glucose Negative Negative POWERCHART MGDL Ketones, QL(U) Negative Negative POWERCHART MGDL HXBILIRUBIN Negative Negative POWERCHART HXBLOOD Large (A) Negative POWERCHART Leukocyte Negative Negative POWERCHART Esterase HXNITRITE Negative Negative POWERCHART Urobilinogen 0.2 0.2 MGDL POWERCHART HXUR WBC. None Seen None Seen POWERCHART HPF HXUR RBC. >100 (A) None Seen POWERCHART HPF Squamous Occ-3 (A) None Seen POWERCHART Epithelial HPF Specimen (Source) Anatomical Collection Method Collection Time Re ceived Time Location / / Volume Laterality Urine, First 04/29/2016 8:46 AM Voided CDT Piero Alejandro M.D. LAB URINE ORDERABLES Performing Organization Address City/[facility]/ZIP Code Phon e Number POWERCHART Bacterial Culture, Aerobic, Urine (04/29/2016 8:46 AM CDT) Analysis Performed At Patho logist Time Signature Bacterial POWERCHART Culture, Aerobic, Urine HXFinal No growth POWERCHART Specimen (Source) Anatomical Collection Method Collection Time Re ceived Time Location / / Volume Laterality Urine, First 04/29/2016 8:46 AM Voided CDT Piero Alejandro M.D. LAB MICROBIOLOGY - GEN ERAL ORDERABLES Performing Organization Address City/State/ZIP Code Phon e Number POWERCHART documented in this encounter Visit Diagnoses Not on filedocumented in this encounter Additional Health Concerns Assessment Noted Time PHQ-9 Depression Total Score: 6 01/31/2015 12:28 PM CD T documented as of this encounter
--- OUTSIDE RECORDS SUMMARY | 2022-05-21 11:38 | XMS_ITS | Encounter Summary ---
:1945 Author Organization [facility] Address [address] [place] [address] Care Team Providers Name Role Phone Unavailable Primary Care Provider Unavailable Encounter Details Date Type Department Care Team Description 08/02/2015 Hospital Encounter HX [facility] FB LAB Ewa Grier M.D. [address] [place], [place] [phone] (Wo rk) Social History [...] do you attend yarsani or Never 2021 jehovah's witness services? Do [...] Date/Time Associated Diagnosis Comme nts THYROID-STIMULATING Routine 08/02/2015 7:28 AM Re sults for this HORMONE-SENSITIVE ORDINARY SEAMAN procedure are in (S-TSH) the results section. documented in this encounter Results (ABNORMAL) Thyroid-Stimulating Hormone-Sensitive (s-TSH) (08/02/2015 7:28 AM ORDINARY SEAMAN) P athologist Signature TSH 4.43 (H) 0.27 - POWERCHART (Thyrotropin) 4.20 MIUL Specimen (Source) Anatomical Collection Method Collection Time Re ceived Time Location / / Volume Laterality Blood 08/02/2015 7:28 AM ORDINARY SEAMAN Ewa Alejandro M.D. LAB BLOOD ADD-ON Performing Organization Address City/State/ZIP Code Phon e Number POWERCHART documented in this encounter Visit Diagnoses Not on filedocumented in this encounter Additional Health Concerns Assessment Noted Time PHQ-9 Depression Total Score: 6 01/31/2015 12:28 PM CD T documented as of this encounter
--- OUTSIDE RECORDS SUMMARY | 2022-05-21 11:38 | XMS_ITS | Encounter Summary ---
:1945 Author Organization [facility] Address [address] [place] [address] Care Team Providers Name Role Phone Unavailable Primary Care Provider Unavailable Encounter Details Date Type Department Care Team Description 04/06/2015 Hospital Encounter HX [facility] LAB Piero Grier M.D. [address] [place], [place] [phone] (Wo rk) Social History [...] do you attend nondenominational or Never 2021 alevism services? Do you [...] Notes Miscellaneous - Piero Weiss M.D. - 04/13/2015 11:11 PM CDT Addendum by OFELIA TURNER on 14 April 2015 09:16:31 CDT Patient notified. From: PIERO WEISS MD To: LAWSON Roy Nurse; Sent: 04/13/2015 23:11:01 CDT Control of the cholesterol needs to be tighter. I'd like Jonnathan to switch from the lovastatin to atorvastatin. I'll send rx. He'll need to check fasting labs again in 6 weeks. Source: [facility] One Month Document Id: [id number] Electronically signed by Conversion, [facility] Pharmacist Intern [id number] at 02/23/2017 6:30 PM CDT documented in this encounter Plan of Treatment Not on filedocumented as of this encounter Procedures Procedure Name Priority Date/Time Associated Comments Diagnosis LIPID PANEL, S Routine 04/06/2015 8:19 Results fo r this AM CDT procedure are i n the results section. ASPARTATE Routine 04/06/2015 8:19 Results for this AMINOTRANSFERASE (AST), AM CDT proc edure are in S/P the results section. LDL CHOLESTEROL Routine 04/06/2015 8:19 Results f or this (BETA-QUANTIFICATION), S AM CDT pro cedure are in the results section. documented in this encounter Results (ABNORMAL) LDL Cholesterol (Beta-Quantification) (04/06/2015 8:19 AM CDT) P athologist Signature Direct LDL 131 (H) <=129 MGDL POWERCHART Comment: 2014 National Lipid Association [...] for FH and FDB is available throu [facility]: FH/ADH Genetic Reflex Saleh [...] at or the on-line test catalog at [employer] for information about how to order these more ts or to speak with a genetic counselor. Further interpretation would require clinical information. Specimen Anatomical Collection Method Collection Time Receive d Time (Source) Location / / Volume Laterality Blood 04/06/2015 8:19 AM 5 8:19 CDT AM CDT Piero Alejandro M.D. LAB BLOOD ADD-ON Performing Organization Address City/State/ZIP Code Phon e Number POWERCHART AST (Aspartate Aminotransferase) (04/06/2015 8:19 AM CDT) [facility] Method Time Signature Aspartate 20 8 - 48 POWERCHART Aminotransferase UNITL (AST), S Specimen (Source) Anatomical Collection Method Collection Time Re ceived Time Location / / Volume Laterality Blood 04/06/2015 8:19 AM CDT Piero Alejandro M.D. LAB BLOOD ADD-ON Performing Organization Address City/State/ZIP Code Phon e Number POWERCHART (ABNORMAL) Lipid Panel (04/06/2015 8:19 AM CDT) [facility] Method Time Signature Calculated LDL Test Not <=129 POWERCHART Performed MGDL Comment: LDL Calculated cannot be perfor med because the Triglyceride is > 400 mg/dL. A measured LDL has been ordered. Cholesterol, Total 218 (H) <=199 MGDL POWERCHART Comment: 2014 National Lipid Association recommen dations for Total Cholesterol in adults ages 18 and up: Desirable <200 mg/dL Borderline high 200-239 mg/dL High 240 mg/dL 2014 National Lipid Association recommen dations for Total Cholesterol in children ages 2 to 17. Acceptable <170 mg/dL Borderline High 170-199 mg/dL High 200 mg/dL HX HDL 36 (L) >=40 MGDL POWERCHART Comment: 2013 National Lipid Association recommen dations for HDL-C in adults ages 18 and up: Low <40 mg/dL (Men) Low <50 mg/dL (Women) 2014 National Lipid Association recommen dations for HDL-C in children ages 2 to 17. Low <40 mg/dL Borderline Low 40-45 mg/dL Acceptable >45 mg/dL Triglycerides 435 (H) <=149 MGDL POWERCHART Comment: 2013 National Lipid Association recommen dations for Triglycerides in adults ages 18 and up: Normal <150 mg/dL Borderline High 150-199 mg/dL High 200-499 mg/dL Very High 500 mg/dL 2013 National Lipid Association recommen dations [...] for risk assessment when triglycerides are >400mg/dL. HXLDL/HDL Not performed POWERCHART Total Cholesterol/HDL Ratio 6.06 PO WERCHART Specimen (Source) Anatomical Collection Method Collection Time Re ceived Time Location / / Volume Laterality Blood 04/06/2015 8:19 AM CDT Piero Alejandro M.D. LAB BLOOD ADD-ON Performing Organization Address City/State/ZIP Code Phon e Number POWERCHART documented in this encounter Visit Diagnoses Not on filedocumented in this encounter Additional Health Concerns Assessment Noted Time PHQ-9 Depression Total Score: 6 01/31/2015 12:28 PM CD T documented as of this encounter
--- OUTSIDE RECORDS SUMMARY | 2022-05-21 11:38 | XMS_ITS | Encounter Summary ---
:1945 Author Organization [facility] Address [address] [place] [address] Care Team Providers Name Role Phone Unavailable Primary Care Provider Unavailable Encounter Details Date Type Department Care Team Description 11/21/2015 Hospital Encounter HX [facility] Piero Moya i, M.D. [address] [place] [phone] (Wo rk) Social History Tobacco [...] do you attend anabaptist or Never 2021 taoist services? Do you [...] Reading Time Taken Comments Blood Pressure 132/70 11/21/2015 3:48 PM DIPPER MACHINE OPERATOR Pulse 72 11/21/2015 3:48 PM DIPPER MACHINE OPERATOR Temperature - - Respiratory Rate - - Oxygen Saturation - - Inhaled Oxygen Concentration - - Weight 112 kg (247 lb 5.7 oz) 11/21/2015 3:48 PM DIPPER MACHINE OPERATOR Height - - Body Mass Index 30.76 01/31/2015 9:26 AM CDT documented in this [...] encounter Progress Notes Piero Weiss M.D. - 11/21/2015 3:43 PM CST [id number] REVISON HISTORY November 24, 2015 at 3:55 p.m. - Modification to date by Documentation Services . CHIEF COMPLAINT/REASON FOR VISIT CDI results. HISTORY OF PRESENT ILLNESS Beth comes in to review MRI results. He has been having some 'dizziness for the past six weeks, maybe more. He describes a feeling of being off balance which affects him especially when walking on bleachers. He recently had an episode of worsened sensation of off balance associated with brief word finding difficulties and an inability to lift one of his legs. Stress test and carotid ultrasound werenegative but MRI of the brain showed two small subacute infarcts in the hussein. Beth has uncontrolled hypercholesterolemia and suboptimally controlled diabetes 2. Since the above episode, he has had some improvement in gait instability but it continues to some extent. He has had no further word finding difficulties. He has occasional tingling of his extremities. SYSTEMS REVIEW Otherwise unremarkable. VITAL SIGNS HR: 72 BP: 132 / 70 WT: 112.2 kg PHYSICAL EXAMINATION He is alert and oriented. He is a good historian although I suspect he minimizes some of his symptoms. This is confirmed by family members. Gait is normal. DIAGNOSTIC RESULTS MRI with contrast from CDI shows age related atrophy with a 2mm and 8mm infarct in the hussein. IMPRESSION/REPORT/PLAN Vertigo From Stroke (CVA) I explained that stroke care consists of dealing with any residual symptoms as well as prevention of further strokes. He has little residual symptoms but may benefit from PT and or OT. Prevention of further stroke will involve taking excellent care of his diabetes, cholesterol, and blood pressure. He will increase his ASA form 81 to 325 mg and follow up with neurology on 11-23. Orders: Consult to Neurology MEDICATIONS aspirin 81 mg oral tablet, 1 tab(s), PO, Daily atorvastatin 40 mg oral tablet, 40 mg, 1 tab(s), PO, Bedtime, 3 refills budesonide-formoterol 160 mcg-4.5 mcg/inh inhalation aerosol, 2 puff(s), Inhalation, 2xDay doxazosin 4 mg oral tablet, 4 mg, 1 tab(s), PO, Bedtime finasteride 5 mg oral tablet, 5 mg, 1 tab(s), PO, Daily Lantus 100 units/mL subcutaneous solution, 40 units, Subcut., Bedtime, 3 refills losartan 100 mg oral tablet, 150 mg, 1.5 tab(s), PO, Daily, 11 refills metformin 1000 mg oral tablet, 1 tab(s), PO, 2xDay meal NovoLog 100 units/mL subcutaneous solution, 15 units, Subcut., 3xDayAC, 3 refills predniSONE 10 mg oral tablet, See special instructions, PO, As Directed ALLERGIES doxycycline (severe rash) penicillin sulfa drugs PAST MEDICAL HISTORY Chronic DM Type2 Neuropathy Hypercholesterolemia* Hypertension Historical Hypercholesterolemia Hypertension (HTN) Chronic Obstructive Sleep Apnea Adult (AGNIESZKA) PROCEDURES/SURGICAL HISTORY Colonoscopy, flexible, proximal to splenic flexure; diagnostic, with or without collection of specimen(s) by brushing or washing, with or without colon decompression (separate procedure).. (08/10/2013), Colonoscopy (12/17/2001), Cataract extraction, Tonsillectomy. SOCIAL HISTORY Date Time: 11/21/2015 15:48 Tobacco: Smoking Status: Former smoker Exposure: Other: quit 40 years ago Alcohol: Use: No Results Found Recreational Drugs: Use: None Type: No Results Found FAMILY HISTORY Mother: Positive: Hypertension Father: Positive: Myocardial infarction Signature Line (Verified) Electronically Signed By: PIERO WEISS MD On: 11/22/2015 11:41 PM Piero Hinton M.D./marcos Electronically Signed By: PIERO WEISS MD On: 11/29/2015 12:00 AM Source: [facility] MHSDOLBEYNONRADSYS Document Id: [id number] ER MACHINE OPERATOR documented in this encounter Nursing Notes Kitty Bailey L.P.N. - 05/03/2016 1:24 PM CDT diagnostics notified [facility]/diagnostics that creatnin level from this mornings draw was 1.6 again and verified that they were aware that low dose contrast dye was going to be used Electronically Signed By: KITTY BAILEY LPN On: 05/03/2016 01:27 PM Source: [facility] POWERCHART Document Id: [id number] documented in this encounter Miscellaneous Notes Telephone Encounter - Kitty Bailey L.PMauroNMauro - 05/02/2016 8:58 AM CDT *Phone Message Document Contains Addenda Addendum by KITTY BAILEY LPN on May 02, 2016 14:02:10 CDT From: KITTY BAILEY LPN ([facility] Nurse) To: PIERO WEISS MD; Sent: 05/02/2016 14:02:10 CDT Subject: FYI Addendum by KITTY BAILEY LPN on May 02, 2016 14:01:28 CDT notified Diallo/ the CT urogram is scheduled for 05/03 at [facility] with a 2:45 arrival and 3pm apptset. advised Beth to hydrate well today per Dr. WOO and redo labs Fri morning and again on Mon ... Addendum by KITTY BAILEY LPN on May 02, 2016 13:27:08 CDT From: KITTY BAILEY LPN ([facility] Nurse) To: PIERO WEISS MD; Sent: 05/02/2016 13:27:08 CDT Subject: FW: *Phone Message Addendum by DEONDREANDRIY on May 02, 2016 13:09:36 CDT Diallo () called - Beth's phone isn't working so they want you to call her phone regarding the CT scan order - [phone] Addendum by HUSEYIN GASPAR LPN on May 02, 2016 11:27:03 CDT From: HUSEYIN GASPAR LPN To: [facility] Nurse; Sent: 05/02/2016 11:27:03 CDT Subject: RE: *Phone Message Per Dr.Alex Bernal. Patient should be notified to hydrate well and then recheck creatinine. From: KITTY BAILEY LPN ([facility] Nurse) To: HUSEYIN GASPAR LPN; Sent: 05/02/2016 08:58:07 CDT Subject: *Phone Message Caller is: ( ) Patient ( ) Mother ( ) Father ( ) Spouse ( ) Daughter ( ) Son ( ) Pharmacy ( ) Other: Physician: Patient MRN #: Reason for Call: Dr WOO would like your input on a CT urogram we need for this patient although his creatin done yesterday showed 1.60.... should we go ahead with the order??? Message: Advice/Action: Source used: ( ) Verbalizes [...] back cell phone number ( ) Source: [facility] POWERCHART Document Id: [id number] Electronically signed by Conversion, [facility] Underground Mine Superintendent [id number] at 02/22/2017 8:50 AM CDT Miscellaneous - Piero Weiss M.D. - 11/22/2015 11:43 PM DIPPER MACHINE OPERATOR Ambulatory Patient Summary [address] [id number] Visit Information Name: BETH COSAT [facility] Number: [id number] Current Date: 11/22/2015 23:43:30 Physicians Attending Provider: PIERO WEISS MD Primary [...] the Following Medications: Medication list as of 11-22-15 23:43 Attention: If you have any medications at [...] Electronically Signed By: PIERO WEISS MD Signed On:22-NOV-2015 23:43:20 Your Allergies & Intolerances Substance Reaction Symptoms Category Comments doxycycline severe rash Drug penicillin Drug sulfa drugs Drug Your Problem List Problem Status Onset Comments Diabetes mellitus type II Active 11/05/1996 DM Type2 Neuropathy Active 08/24/2008 Hypertension Active Hypercholesterolemia* Active Your Upcoming Appointments Date Time Location Provider 11/23/2015 14:15 [facility] Spike NICHOLS, Cody Barber Attention: Contact your local Clinic if further [...] if you dont have one. Go to [email or web address] and click on Create Your Account. Then, follow the directions to complete the online form. Youll be asked for your [facility] number which you can find at the top of this document. Your Goals/Additional instructions: Source: [facility] POWERCHART Document Id: [id number] ER MACHINE OPERATOR Miscellaneous - Piero Weiss M.D. - 11/22/2015 11:43 PM DIPPER MACHINE OPERATOR Ambulatory Discharge Medication List [address] [id number] Visit Information Name: BETH COSTA [facility] Number: [id number] Visit Date: 11/22/2015 23:43:29 Attending Provider: PIERO WEISS MD Primary Care [...] the Following Medications: Medication list as of 11-22-15 23:43 Attention: If you have any medications at [...] Electronically Signed By: PIERO WEISS MD Signed On:22-NOV-2015 23:43:20 Additional Information: [facility] Document Id: [id number] ER MACHINE OPERATOR Miscellaneous - Steffany Ruelas L.P.N. - 11/21/2015 3:48 PM CST Adult Chaser Tar Intake/History Adult Chaser Tar Intake/History Entered On: 11/21/2015 15:51 DIPPER MACHINE OPERATOR Performed On: 11/21/2015 15:48 DIPPER MACHINE OPERATOR by STEFFANY RUELAS LPN Intake Chief Complaint : CDI results. Peripheral Pulse Rate : 72 /min Heart Rhythm : Regular Systolic Blood Pressure : 132 mmHg Diastolic Blood Pressure : 70 mmHg NIBP Mean : 91 mmHg BP Location : Left upper extremity Blood Pressure Cuff Size : Large Actual Weight : 112.2 kg(Converted to: 247 lb 6 oz) Weight Source : Standing scale Dosing Weight Clinic : 112.2 kg STEFFANY RUELAS LPN - 11/21/2015 15:48 DIPPER MACHINE OPERATOR General Info Information Given By : Patient Preferred Communication Mode : Verbal Languages : Bolivian Is Patient Female and 13-50 no hysterectomy : No STEFFANY RUELAS LPN - 11/21/2015 15:48 DIPPER MACHINE OPERATOR Subjective Pain Symptoms : No STEFFANY RUELAS LPN - 11/21/2015 15:48 DIPPER MACHINE OPERATOR Dependent Habits Exposure to Tobacco Smoke : Other: quit 40 years ago Smoking Status : Former smoker Tobacco 2A : Yes Tobacco Use/Currently Using : No Tobacco Use/Last 30 Days : No Tobacco Use/Last 12 months : No STEFFANY RUELAS LPN - 11/21/2015 15:48 DIPPER MACHINE OPERATOR Caffeine Use Grid Caffeine Use : Current Type : Coffee Frequency : Daily STEFFANY RUELAS LPN - 11/21/2015 15:48 DIPPER MACHINE OPERATOR Recreational Drug Use Grid Drug Use : None STEFFANY RUELAS LPN - 11/21/2015 15:48 DIPPER MACHINE OPERATOR Source: [facility] POWERCHART Document Id: [id number] DIPPER MACHINE OPERATOR!35 ER MACHINE OPERATOR documented in this encounter Plan of Treatment Not on filedocumented as of this encounter Visit Diagnoses Not on filedocumented in this encounter Additional Health Concerns Assessment Noted Time PHQ-9 Depression Total Score: 6 01/31/2015 12:28 PM CD T documented as of this encounter
--- OUTSIDE RECORDS SUMMARY | 2022-05-21 11:38 | XMS_ITS | Encounter Summary ---
:1945 Author Organization [facility] Address [address] [place] [address] Care Team Providers Name Role Phone Unavailable Primary Care Provider Unavailable Encounter Details Date Type Department Care Team Description 05/01/2016 Hospital Encounter HX [facility] Ewa Grier M.D. [address] [place], [place] [phone] (Wo rk) Social History [...] do you attend confucianist or Never 2021 anglican services? Do you [...] Associated Diagnosis Comme nts CBC WITHOUT Routine 05/01/2016 4:12 PM Results f or this DIFFERENTIAL, B CDT procedure ar e in the results section. BASIC METABOLIC Routine 05/01/2016 4:12 PM Result s for this PANEL, S/P CDT procedure are i n the results section. documented in this encounter Results (ABNORMAL) CBC without Differential (05/01/2016 4:12 PM CDT) Analysis Performed At [facility] Time Signature Leukocytes 6.1 3.5 - 10.5 POWERCHART X109L Erythrocytes 3.70 (L) 4.32 - POWERCHART 5.72 [id number] Hemoglobin 11.9 (L) 13.5 - POWERCHART 17.5 GDL Hematocrit 32.4 (L) 38.8 - POWERCHART 50.0 MCV 87.6 81.0 - POWERCHART 95.0 FL Platelet Count 220 150 - 450 POWERCHART X109L HX RDW 12.7 11.8 - POWERCHART 15.6 Specimen (Source) Anatomical Collection Method Collection Time Re ceived Time Location / / Volume Laterality Blood 05/01/2016 4:12 PM CDT Ewa Alejandro M.D. LAB BLOOD ADD-ON Performing Organization Address City/State/ZIP Code Phon e Number POWERCHART (ABNORMAL) BMP (Basic Metabolic Panel) (05/01/2016 4:12 PM CDT) Analysis Performed At [facility] Time Signature Sodium, S 137 135 - 145 POWERCHART MMOLL Potassium, S 4.5 3.6 - 5.2 POWERCHART MMOLL Chloride, S 99 98 - 107 POWERCHART MMOLL CO2 Total 20 (L) 22 - 29 POWERCHART MMOLL BUN (Blood Urea 41 (H) 8 - 24 POWERCHART Nitrogen), S MGDL Creatinine 1.60 (H) 0.80 - POWERCHART 1.30 MGDL Calcium, Total, 9.6 8.8 - 10.3 POWERCHART S MGDL Anion Gap 18 (H) 7 - 15 POWERCHART MMOLL HXeGFR (MDRD) 43 (L) >=60 POWERCHART [id number] eGFR 52 (L) >=60 POWERCHART Black/ [id number] Cymro Glucose 253 (H) 70 - 139 POWERCHART MGDL Specimen (Source) Anatomical Collection Method Collection Time Re ceived Time Location / / Volume Laterality Blood 05/01/2016 4:12 PM CDT Ewa Alejandro M.D. LAB BLOOD ADD-ON Performing Organization Address City/State/ZIP Code Phon e Number POWERCHART documented in this encounter Visit Diagnoses Not on filedocumented in this encounter Additional Health Concerns Assessment Noted Time PHQ-9 Depression Total Score: 6 01/31/2015 12:28 PM CD T documented as of this encounter
--- OUTSIDE RECORDS SUMMARY | 2022-05-21 11:38 | XMS_ITS | Encounter Summary ---
:1945 Author Organization [facility] Address [address] [place] [address] Care Team Providers Name Role Phone Unavailable Primary Care Provider Unavailable Encounter Details Date Type Department Care Team Description 08/02/2015 Hospital Encounter HX [facility] Ewa Grier M.D. [address] [place], [place] [phone] (Wo rk) Social History [...] do you attend episcopalian or Never 2021 sabianist services? Do you [...] Associated Comments Diagnosis LIPID PANEL, S Routine 08/02/2015 7:28 Results fo r this AM HEAVY MOBILE EQUIPMENT REPAIRER procedure are i n the results section. ASPARTATE Routine 08/02/2015 7:28 Results for this AMINOTRANSFERASE (AST), AM HEAVY MOBILE EQUIPMENT REPAIRER proc edure are in S/P the results section. LDL CHOLESTEROL Routine 08/02/2015 7:28 Results f or this (BETA-QUANTIFICATION), S AM HEAVY MOBILE EQUIPMENT REPAIRER pro cedure are in the results section. documented in this encounter Results (ABNORMAL) LDL Cholesterol (Beta-Quantification) (08/02/2015 7:28 AM HEAVY MOBILE EQUIPMENT REPAIRER) P athologist Signature Direct LDL 143 (H) <=129 MGDL POWERCHART Comment: 2013 National Lipid [...] esting for FH and FDB is available maeganu [facility]: FH/ADH Genetic Reflex Saleh el (test ADHP). Acquired (non-genetic) causes of markedly increased LDL cholesterol include cholestatic liver disease due to the presence of LpX. If a genetic form of hypercholesterolemia is suspected, family studies including biochemical testing fo r lipids (total cholesterol,triglycerides, LDL cholesterol and HDL cholesterol) are recommended. ??Please contact the laboratory at or the on-line test catalog at [facility] for information about how to order these more ts or to speak with a genetic counselor. Further interpretation would require clinical information. Specimen Anatomical Collection Method Collection Time Receive d Time (Source) Location / / Volume Laterality Blood 08/02/2015 7:28 AM 5 7:28 HEAVY MOBILE EQUIPMENT REPAIRER AM HEAVY MOBILE EQUIPMENT REPAIRER Ewa Alejandro M.D. LAB BLOOD ADD-ON Performing Organization Address City/State/ZIP Code Phon e Number POWERCHART AST (Aspartate Aminotransferase) (08/02/2015 7:28 AM HEAVY MOBILE EQUIPMENT REPAIRER) 1-800-DENTIST Method Time Signature Aspartate 23 8 - 48 POWERCHART Aminotransferase UNITL (AST), S Specimen (Source) Anatomical Collection Method Collection Time Re ceived Time Location / / Volume Laterality Blood 08/02/2015 7:28 AM HEAVY MOBILE EQUIPMENT REPAIRER Ewa Alejandro M.D. LAB BLOOD ADD-ON Performing Organization Address City/State/ZIP Code Phon e Number POWERCHART (ABNORMAL) Lipid Panel (08/02/2015 7:28 AM HEAVY MOBILE EQUIPMENT REPAIRER) 1-800-DENTIST Method Time Signature Calculated LDL Test Not <=129 POWERCHART Performed MGDL Comment: LDL Calculated cannot be perfor med because the Triglyceride is > 400 mg/dL. A measured LDL has been ordered. Cholesterol, Total 234 (H) <=199 MGDL POWERCHART Comment: 2014 National Lipid Association recommen dations for Total Cholesterol in adults ages 18 and up: Desirable <200 mg/dL Borderline high 200-239 mg/dL High 240 mg/dL 2014 National Lipid Association recommen dations for Total Cholesterol in children ages 2 to 17. Acceptable <170 mg/dL Borderline High 170-199 mg/dL High 200 mg/dL HX HDL 39 (L) >=40 MGDL POWERCHART Comment: 2014 National Lipid Association recommen dations for HDL-C in adults ages 18 and up: Low <40 mg/dL (Men) Low <50 mg/dL (Women) 2014 National Lipid Association recommen dations for HDL-C in children ages 2 to 17. Low <40 mg/dL Borderline Low 40-45 mg/dL Acceptable >45 mg/dL Triglycerides 420 (H) <=149 MGDL POWERCHART Comment: 2014 National Lipid Association recommen dations for Triglycerides in adults ages 18 and up: Normal <150 mg/dL Borderline High 150-199 mg/dL High 200-499 mg/dL Very High 500 mg/dL 2014 National Lipid Association recommen dations for Triglycerides in children ages 2 to 9. Acceptable <75 mg/dL Borderline High 75-99 mg/dL High 100 mg/dL 2013 National Lipid Association recommen dations for Triglycerides in children ages 10 to 17. Acceptable <90 mg/dL Borderline High 90-129 mg/dL High 130 mg/dL Trigs >400mg/dL: Triglycerides >400 mg/ dL. Calculated LDL cholesterol is not valid. Non-HDL cholesterol may be used for risk assessment when triglycerides are >400mg/dL. Total Cholesterol/HDL Ratio 6.00 PO WERCHART HXLDL/HDL Not performed POWERCHART Specimen (Source) Anatomical Collection Method Collection Time Re ceived Time Location / / Volume Laterality Blood 08/02/2015 7:28 AM HEAVY MOBILE EQUIPMENT REPAIRER Ewa Alejandro M.D. LAB BLOOD ADD-ON Performing Organization Address City/State/ZIP Code Phon e Number POWERCHART documented in this encounter Visit Diagnoses Not on filedocumented in this encounter Additional Health Concerns Assessment Noted Time PHQ-9 Depression Total Score: 6 01/31/2015 12:28 PM CD T documented as of this encounter
--- OUTSIDE RECORDS SUMMARY | 2022-05-21 11:38 | XMS_ITS | Encounter Summary ---
:1945 Author Organization [facility] Address [address] [place] [address] Care Team Providers Name Role Phone Unavailable Primary Care Provider Unavailable Encounter Details Date Type Department Care Team Description 01/31/2015 Hospital Encounter HX [facility] FB [facility] Ewa Grier M.D. [address] [place], [place] [phone] (Wo rk) Social History [...] do you attend protestant or Never 2021 judaism services? Do you [...] Associated Comments Diagnosis ALBUMIN, RANDOM, U Routine 01/31/2015 8:59 AM Res ults for this CDT procedure are i n the results section. HEMOGLOBIN A1C, B Routine 01/31/2015 8:59 AM Resu lts for this CDT procedure are i n the results section. BASIC METABOLIC Routine 01/31/2015 8:59 AM Result s for this PANEL, S/P CDT procedure are i n the results section. documented in this encounter Results (ABNORMAL) BMP (Basic Metabolic Panel) (01/31/2015 8:59 AM CDT) P athologist Signature BUN (Blood Urea 24 8 - 24 POWERCHART Nitrogen), S MGDL Chloride, S 104 98 - 107 POWERCHART MMOLL CO2 Total 20 (L) 22 - 29 POWERCHART MMOLL Creatinine 1.1 0.8 - 1.3 POWERCHART MGDL Glucose 245 (H) 70 - 139 POWERCHART MGDL Calcium, Total, 9.6 8.8 - 10.3 POWERCHART S MGDL Sodium, S 140 135 - 145 POWERCHART MMOLL Potassium, S 4.4 3.6 - 5.2 POWERCHART MMOLL HXeGFR (MDRD) >60 >=60 POWERCHART [id number] eGFR >60 >=60 POWERCHART Black/ [id number] [place] Specimen (Source) Anatomical Collection Method Collection Time Re ceived Time Location / / Volume Laterality Blood 01/31/2015 8:59 AM CDT Ewa Alejandro M.D. LAB BLOOD ADD-ON Performing Organization Address City/State/ZIP Code Phon e Number POWERCHART (ABNORMAL) Hemoglobin A1c (01/31/2015 8:59 AM CDT) Analysis Performed At [facility] Time Signature Hemoglobin A1c, 7.70 (H) <=5.60 A1C POWERCHART B Specimen (Source) Anatomical Collection Method Collection Time Re ceived Time Location / / Volume Laterality Blood 01/31/2015 8:59 AM CDT Ewa Alejandro M.D. LAB BLOOD ADD-ON Performing Organization Address City/State/ZIP Code Phon e Number POWERCHART (ABNORMAL) Microalbumin, Random, Urine (01/31/2015 8:59 AM CDT) P athologist Signature HXU Albumin % 203.3 MGL POWERCHART Creatinine, 131.0 MGDL POWERCHART Random, U Albumin/Creati 155 (H) 0 - 17 MGG POWERCHART nine Ratio Specimen (Source) Anatomical Collection Method Collection Time Re ceived Time Location / / Volume Laterality Urine 01/31/2015 8:59 AM CDT Ewa Alejandro M.D. LAB URINE ORDERABLES Performing Organization Address City/State/ZIP Code Phon e Number POWERCHART documented in this encounter Visit Diagnoses Not on filedocumented in this encounter Additional Health Concerns Assessment Noted Time PHQ-9 Depression Total Score: 6 01/31/2015 12:28 PM CD T documented as of this encounter
--- OUTSIDE RECORDS SUMMARY | 2022-05-21 11:38 | XMS_ITS | Encounter Summary ---
:1945 Author Organization [facility] Address [address] [place] [address] Care Team Providers Name Role Phone Unavailable Primary Care Provider Unavailable Encounter Details Date Type Department Care Team Description 04/11/2015 Hospital Encounter HX [facility] Piero Moya i, M.D. [address] [place] [address] (Wo rk) Social History Tobacco [...] do you attend cheondoism or Never 2021 syn[employer] services? Do you [...] Sign Reading Time Taken Comments Blood Pressure 154/70 04/11/2015 2:09 PM CDT Pulse 80 04/11/2015 2:06 PM CDT Temperature - - Respiratory Rate 16 04/11/2015 2:06 PM CDT Oxygen Saturation - - Inhaled Oxygen Concentration - - Weight 113 kg (248 lb 0.3 oz) 04/11/2015 2:06 PM CDT Height - - Body Mass Index 30.84 01/31/2015 9:26 AM CDT documented in this [...] encounter Progress Notes Piero Weiss M.D. - 04/11/2015 1:59 PM CDT [id number] CHIEF COMPLAINT/ REASON FOR VISIT Review lab results and discuss seeing an lead database administrator. HISTORY OF PRESENT ILLNESS Beth is a 69 year old male who presents to the clinic today to discuss his lab results and discuss seeing an lead database administrator. He has had diabetes for 25 years and he truly believes that he is still not eating correctly. He has been getting good exercise. In terms of his hyperlipidemia, he states that he is currently taking Lovastatin. The patient denies any additional questions or concerns at this time. MEDICATIONS Post-visit Medication Reconciliation Reviewed and are as outlined in the EMR dated 04/11/2015. ALLERGIES Penicillin. Sulfa drugs. Doxycycline causes severe [...] PREVENTIVE SERVICES: Tobacco use: None. VITAL SIGNS WEIGHT: 112.5 kg. PULSE: 80 /min. RESP: 16 /min. SYSTOLIC: 158 mmHg, 154 mmHg. DIASTOLIC: 72 mmHg, 70 mmHg. PHYSICAL EXAMINATION GENERAL: Patient is alert and oriented times three, in no acute distress, good hygiene and is dressed appropriately. EXTREMITIES: Within normal limits. For foot exam, see quality measures. IMPRESSION/REPORT/PLAN 1. Diabetes mellitus type II: We will have him meet with Sabine Landis CNP for further diabetic education. 2. Hyperlipidemia: He will call the clinic with the medications he is on. We will make further recommendations after this. 3. Follow up: The patient will contact the clinic with any new or worsening symptoms. This document serves as a record of services personally performed by Piero Roy MD. It was created on their behalf by Karen Jones, a trained esthetician and manager medical spa. The creation of this record is based on the scribe's personal observations and the provider's statements to them. This document has been checked and approved by the attending provider. Piero Hinton M.D./ Electronically Signed By: PIERO WEISS MD On: 06/19/2015 10:16 AM Source: [facility] MHSDOLBEYNONRADSYS Document Id: [id number] documented in this encounter Miscellaneous Notes Telephone Encounter - Annmarie Reich R.N. - 04/19/2015 4:09 PM CDT cholestrol med script Document Contains Addenda Addendum by ANNMARIE REICH RN on 19 April 2015 17:27:38 CDT From: ANNMARIE REICH RN To: PIERO WEISS MD; Sent: 04/19/2015 17:27:38 CDT Subject: RE: cholestrol med script Phone call to pt. He was not happy with the idea of stopping any of these medications and did not want to stop them. As today at the check embosser appt he was told something different about meds. He said he is more and more confused about his meds. He wants to come in and talk to someone about meds. He felt it was best to make an appt with you about the meds so you could make changes and discuss issues. He is coming in friday at 945. Addendum by PIERO WEISS MD on 19 April 2015 16:42:45 CDT From: PIERO WEISS MD To: ANNMARIE REICH RN; Sent: 04/19/2015 16:42:45 CDT Subject: RE: cholestrol med script The high doseof lovastatin is not controlling the cholesterol well enough. I sent rx for Crestor which is a stronger medicine. He should stop the gemfibrozil and lovastatin and start the crestor. Lab orders are in for 6 weeks. From: ANNMARIE REICH RN To: PIERO WEISS MD; Sent: 04/19/2015 16:08:59 CDT Subject: cholestrol med script Caller is: ( ) Patient ( ) Mother ( ) Father ( ) Spouse ( ) Daughter ( ) Son ( Gabe/Kailey ) Pharmacy ( ) Other: Physician: Lulu Patient MRN #: Reason for Call: Message: S Message from pharmacy B They are expecting a script for a cholestrol med to have been sent to them for patient. I see that in visit note patient was to call back and let you know what meds he is on. Looks like he did and then told you he was on dosage 80 mg of lovastatin takes with pm meal 04/12/15 note. Could you send script of this to pharmacy. Advice/Action: Source used: ( ) Verbalizes understanding [...] back cell phone number ( ) Source: [facility] POWERCHART Document Id: [id number] Electronically signed by Karen [facility] Director Advertising [id number] at 02/23/2017 6:30 PM CDT Miscellaneous - Piero Weiss M.D. - 04/11/2015 6:16 PM CDT Ambulatory Patient Summary [address] [id number] Visit Information Name: [facility] Number: [id number] Current Date: 04/11/2015 18:16:46 Physicians Attending Provider: PIERO WEISS MD Primary [...] tablet) 1 Tablet(s), Oral, once a day *fluticasone nasal (fluticasone 50 mcg/inh nasal spray) 2 [place](s), Nostrils(Both), once a day gemfibrozil (gemfibrozil 600 [...] the Following Medications: Medication list as of 04-11-15 18:16 Attention: If you have any medications at [...] Electronically Signed By: PIERO WEISS MD Signed On:11-APR-2015 18:16:38 Your Allergies & Intolerances Substance Reaction Symptoms Category Comments doxycycline severe rash Drug penicillin Drug sulfa drugs Drug Your Problem List Problem Status Onset Comments Diabetes mellitus type II Active 11/05/1996 DM Type2 Active 08/24/2008 DM Type2 Neuropathy Active 08/24/2008 Hypertension Active Hypercholesterolemia* Active Your Upcoming Appointments Date Time Location Provider 04/19/2015 11:30 [facility] CNP Attention: Contact your local Clinic if [...] you dont have one. Go to [email or web address] and click on Create Your Account. Then, follow the directions to complete the online form. Youll be asked for your [facility] number which you can find at the top of this document. Your Goals/Additional instructions: Source: [facility] POWERCHART Document Id: [id number] Miscellaneous - Piero Weiss M.D. - 04/11/2015 6:16 PM CDT Ambulatory Discharge Medication List [address] [id number] Visit Information Name: [facility] Number: [id number] Visit Date: 04/11/2015 18:16:45 Attending Provider: PIERO WEISS MD Primary Care [...] tablet) 1 Tablet(s), Oral, once a day *fluticasone nasal (fluticasone 50 mcg/inh nasal spray) 2 [place](s), Nostrils(Both), once a day gemfibrozil (gemfibrozil 600 [...] the Following Medications: Medication list as of 04-11-15 18:16 Attention: If you have any medications at [...] Electronically Signed By: PIERO WEISS MD Signed On:11-APR-2015 18:16:38 Additional Information: Source: [facility] POWERCHART Document Id: [id number] Miscellaneous - Justina Lobato, LMauroP.N. - 04/11/2015 2:09 PM CDT Ambulatory Vitals Height Weight Ambulatory Vitals Height Weight Entered On: 04/11/2015 14:09 CDT Performed On: 04/11/2015 14:09 CDT by JUSTINA LOBATO LPN Vitals/Ht/Wt Systolic Blood Pressure : 154 mmHg (HI) Diastolic Blood Pressure : 70 mmHg NIBP Mean : 98 mmHg BP Location : Left upper extremity Blood Pressure Cuff Size : Regular LUIS ALFREDOMARGIEAMOR CROWLEY LPN - 04/11/2015 14:09 CDT Source: [facility] POWERCHART Document Id: [id number] CDT!7 Miscellaneous - Justina Lobato L.P.N. - 04/11/2015 2:06 PM CDT Adult Interventional Radiologist Intake/History Adult Interventional Radiologist Intake/History Entered On: 04/11/2015 14:08 CDT Performed On: 04/11/2015 14:06 CDT by JUSTINA LOBATO LPN Intake Chief Complaint : 1. Discuss test results 2. Discuss seeing an lead database administrator Peripheral Pulse Rate : 80 /min Respiratory Rate : 16 /min Systolic Blood Pressure : 158 mmHg (HI) Diastolic Blood Pressure : 72 mmHg NIBP Mean : 101 mmHg BP Location : Left upper extremity Blood Pressure Cuff Size : Regular Actual Weight : 112.5 kg(Converted to: 248 lb 0 oz) Weight Source : Standing scale Dosing Weight Clinic : 112.5 kg LUIS ALFREDOMARGIEAMOR CROWLEY LPN - 04/11/2015 14:06 CDT General Info Information Given By : Patient Preferred Communication Mode : Verbal, Written Languages : [place] Is Patient Female and 13-50 no hysterectomy : No JUSTINA LOBATO LPN - 04/11/2015 14:06 CDT Subjective Pain Symptoms : No JUSTINA LOBATO LPN - 04/11/2015 14:06 CDT Dependent Habits Tobacco Use/Currently Using : No Tobacco Use/Last 12 months : No Exposure to Tobacco Smoke : Other: quit 40 years ago Smoking Status : Former smoker JUSTINA LOBATO LPN - 04/11/2015 14:06 CDT Tobacco Use Grid Type : Cigarettes JUSTINA LOBATO LPN - 04/11/2015 14:06 CDT Caffeine Use Grid Caffeine Use : Current Type : Coffee Frequency : Daily JUSTINA LOBATO LPN - 04/11/2015 14:06 CDT Recreational Drug Use Grid Drug Use : None JUSTINA LOBATO LPN - 04/11/2015 14:06 CDT Source: [facility] POWERCHART Document Id: [id number] CDT!36 documented in this encounter Plan of Treatment Not on filedocumented as of this encounter Visit Diagnoses Not on filedocumented in this encounter Additional Health Concerns Assessment Noted Time PHQ-9 Depression Total Score: 6 01/31/2015 12:28 PM CD T documented as of this encounter
--- OUTSIDE RECORDS SUMMARY | 2022-05-21 11:38 | XMS_ITS | Encounter Summary ---
:1945 Author Organization [facility] Address [address] [place] [address] Care Team Providers Name Role Phone Unavailable Primary Care Provider Unavailable Encounter Details Date Type Department Care Team Description 01/31/2015 Hospital Encounter HX [facility] Piero Moya i, M.D. [address] [place] [address] (Wo rk) Social History Tobacco [...] do you attend baptist or Never 2021 taoism services? Do you [...] Sign Reading Time Taken Comments Blood Pressure 146/80 01/31/2015 9:26 AM CDT Pulse 76 01/31/2015 9:22 AM CDT Temperature - - Respiratory Rate 20 01/31/2015 9:22 AM CDT Oxygen Saturation - - Inhaled Oxygen Concentration - - Weight 110 kg (242 lb 8.1 oz) 01/31/2015 9:22 AM CDT Height 191 cm (6' 3.2) 01/31/2015 9:26 AM CDT Body Mass Index 30.15 01/31/2015 9:22 AM CDT documented in this encounter Medications [...] encounter H&P Notes Piero Weiss M.D. - 01/31/2015 9:01 AM CDT [id number] CHIEF COMPLAINT/ REASON FOR VISIT Review medications, review medical concerns, update preventive services. MEDICATIONS Post-visit Medication Reconciliation NovoLog 100 unites 15 units subcutaneous three times daily. Losartan 150 mg 1 ?? tabs by mouth daily. Fluticasone nasal spray50 mcg/inh 2 sprays in both nostrils by mouth at bedtime. Atorvastatin 40 mg 1 tab by mouth at bedtime. Doxazosin 4 mg 1 tab by mouth at bedtime. Budesonide-formoterol 160 mcg-4.5 mcg/inh 2 puffs twice daily. Finasteride 5 mg 1 tab by mouth daily. Prednisone 10 mg as directed. Lantus 35 units subcutaneously at bedtime. Metformin 1000 mg 1 tab by mouth twice daily. Lisinopril 40 mg 1 tab by mouth daily. Gemfibrozil 600 mg 1 tab by mouth twice daily. Aspirin 81 mg 1 tab by mouth daily. ALLERGIES Penicillin. Sulfa drugs. Doxycycline causes severe rash. SYSTEMS REVIEW Jonnathan is concerned with a spot on his arm. He states that sometimes it falls off and then it will come back. He has had it for 3-4 years. Jonnathan also states that his blood sugar has been running high lately and he is currently using 60-80 units of insulin a day. He states that he checks his blood sugars 5-6 times a day. He has noticed that when he gets up in the morning his fasting blood sugar in the morning is around 215. He states thatit will shoot up to 350 very easily. He is not sure of any lifestyle changes other than he is not working as often. He does admit that he could possibly cut back on his carbohydrate intake. Jonnathan has also been more fatigued lately. He states that he would be able to sleep now. During the night, he sleeps for 1-2 hours at a time but he has to get up to use the bathroom. He did have a bladder capacity checked at [place] about 3 years ago and he is fine. Jonnathan does not have any issues falling asleep. He does state that he is waking up not as much rested as previously. PHQ9 is 6, TINEO Index of [place] is 6, safety screening reviewed. Discussed end of life issues. He otherwise has no complaints. No headaches, [...] or hunger. No mood or behavioral difficulties. PAST MEDICAL/SURGICAL HISTORY 1. Benign prostatic hypertrophy. 2. Diabetes mellitus type 2. 3. Hypertension. 4. Hyperlipidemia type II-B. 5. Erectile dysfunction. 6. Pulmonary symptomatology, diagnosis at the [facility] unclear, but probably some degree of COPD. 7. Status post left cataract surgery at the [facility]. 8. Tonsillectomy. 9. AGNIESZKA, prescribed CPAP therapy but is currently not using. PREVENTIVE SERVICES: Tobacco use: None. Lipid panel: 07/07/2013. Colonoscopy: 08/10/13. Tetanus booster: updated today. Zoster vaccine: 06/2012 at the [facility]. Pneumovax: 11/15/2008. Prevnar: updated today. SOCIAL HISTORY He is . He doesn't smoke. 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 FAMILY HISTORY Mother had hypertension. There is no colon or prostate cancer in the family. There is no diabetes. Father had an OK at age 76. Asthma and mental illness in a brother, sister. VITAL SIGNS HEIGHT: 191 cm. WEIGHT: 110 kg. BMI: 30.15 kg/m2. TEMP: 36.3 Deg C. PULSE: 76 /min. RESP: 20 /min. SYSTOLIC: 144 mmHg, 146 mmHg. DIASTOLIC: 78 mmHg, 80 mmHg. PHYSICAL EXAMINATION GENERAL: Patient is [...] ABDOMEN: Soft and nontender with no masses. RECTUM: Perirectal area appears normal sphincter tone is normal in no rectal masses are palpated. Prostate is small smooth and non-nodular. GENITALIA: External genitalia is circumcised without lesions. Testes are without mass. No inguinal hernias are palpated. SKIN: On left forearm, there is a 1 cm area of thickened, crusty skin with no surrounding redness orulceration. EXTREMITIES: Within normal limits. IMPRESSION/REPORT/PLAN 1. Health care maintenance: We will check a PSA today and I will inform him of the results when available. He received an Adacel and Prevnar vaccination today. He is encouraged to achieve and maintain healthy body weight through diet and exercise. He is reminded of the need for yearly eye and regular dental visits. 2. Skin lesion: He will return to have this biopsied. 3. Diabetes mellitus type 2: Encouraged him to be more strict with his diabetic diet. We will check a Hgb A1c and Urine microalbumin today and I will inform him of the results when available. We did increase his Lantus to 40 units subcutaneously. Continue on NovoLog on its current dose. He is due for glaucoma screening and he will get a diabetic eye exam scheduled. 4. Fatigue: We will check a CBC and TSH today and I will inform his of the results when available. Idid discuss with him that this may be related to a more sleep and lifestyle issue and he does state that he has AGNIESZKA and does not use his CPAP. 5. Hypertension, under marginal control: We check a BMP today and I will inform him of the results when available. Continue on Losartan and Lisinopril at the current dose. Encouraged adequate diet and aerobic exercise. 6. Hypercholesterolemia: We checked a AST and lipid panel today and I will inform him of the resultswhen available. Continue on Atorvastatin at current dose. 7. Follow up: The patient will contact the clinic with any new or worsening symptoms. This document serves as a record of services personally performed by Piero Roy MD. It was created on their behalf by Karen Jones, a trained medical secretary teacher. The creation of this record is based on the scribe's personal observations and the provider's statements to them. This document has been checked and approved by the attending provider. Piero Hinton M.D./ Electronically Signed By: PIERO WEISS MD On: 03/15/2015 10:32 PM Source: [facility] MHSDOLBEYNONRADSYS Document Id: [id number] documented in this encounter Procedure Notes Conversion, Historical Provider Ser - 01/31/2015 9:29 AM CDT Vision Testing Vision Testing Entered On: 01/31/2015 9:30 CDT Performed On: 01/31/2015 9:29 CDT by JOSE BAGLEY LPN Vision Testing Eye, Right w/o Correction : 20/40 Eye, Left w/o Correction : 20/20 JOSE BAGLEY LPN - 01/31/2015 9:29 CDT Source: [facility] POWERCHART Document Id: [id number] CDT!4 documented in this encounter Miscellaneous Notes Miscellaneous - Conversion, Historical Provider Ser - 01/31/2015 12:28 PM CDT PHQ-9 PHQ-9 Entered On: 01/31/2015 12:29 CDT Performed On: 01/31/2015 12:28 CDT by JOSE BAGLEY LPN PHQ-9 Little interest or pleasure in doing things : Not at all Feeling down, depressed, or hopeless : Not at all Trouble falling or staying asleep, or sleeping too much : Nearly every day Feeling tired or having little energy : Nearly every day Poor appetite or overeating : Not at all Feeling bad about yourself or that you are a failure : Not at all Trouble concentrating on things : Not at all Moving or speaking slowly; restless or fidgety : Not at all Thoughts that you would be better off /hurting self : Not at all PHQ-9 Calculated Score : 6 Problems make work, home, or dealing with others : Not difficult at all JOSE BAGLEY LPN - 01/31/2015 12:28 CDT Source: [employer] Document Id: [id number] CDT!13 Miscellaneous - Conversion, Historical Provider Ser - 01/31/2015 9:26 AM CDT Ambulatory Vitals Height Weight Ambulatory Vitals Height Weight Entered On: 01/31/2015 9:26 CDT Performed On: 01/31/2015 9:26 CDT by JOSE BAGLEY LPN Vitals/Ht/Wt Systolic Blood Pressure : 146 mmHg (HI) Diastolic Blood Pressure : 80 mmHg NIBP Mean : 102 mmHg BP Location : Right upper extremity Blood Pressure Cuff Size : Regular Height : 191 cm(Converted to: 6 ft 3 inch(es), 75 inch(es)) JOSE BAGLEY LPN - 01/31/2015 9:26 CDT Source: [employer] Document Id: [id number] CDT!8 Miscellaneous - Conversion, Historical Provider Ser - 01/31/2015 9:22 AM CDT Adult Gas System Operator Intake/History Adult Gas System Operator Intake/History Entered On: 01/31/2015 9:26 CDT Performed On: 01/31/2015 9:22 CDT by MC LUNA, JOSE ADÁN OPEN SHANK COVERER Intake Chief Complaint : physical Temperature Core : 36.3 DegC(Converted to: 97.3 DegF) (LOW) Peripheral Pulse Rate : 76 /min Respiratory Rate : 20 /min Systolic Blood Pressure : 144 mmHg (HI) Diastolic Blood Pressure : 78 mmHg NIBP Mean : 100 mmHg BP Location : Right upper extremity Blood Pressure Cuff Size : Regular Height : 191 cm(Converted to: 6 ft 3 inch(es), 75 inch(es)) Actual Weight : 110 kg(Converted to: 242 lb 8 oz) Dosing Weight Clinic : 110 kg Clinic BSA : 2.42 Body Mass Index : 30.15 kg/m2 JOSE BAGLEY IRMA - 01/31/2015 9:22 CDT General Info Information Given By : Patient Languages : Omani Is Patient Female and 13-50 no hysterectomy : No JOSE BAGLEY OPEN SHANK COVERER - 01/31/2015 9:22 CDT Subjective Pain Symptoms : No JOSE BAGLEY IRMA - 01/31/2015 9:22 CDT Dependent Habits Tobacco Use/Currently Using : No Smoking Status : Former smoker JOSE BAGLEY [facility] - 01/31/2015 9:22 CDT Tobacco Use Grid Type : Cigarettes Last Use : quit 1980 JOSE BAGLEY [facility] - 01/31/2015 9:22 CDT Caffeine Use Grid Caffeine Use : Current Type : Coffee Frequency : Daily JOSE BAGLEY OPEN SHANK COVERER - 01/31/2015 9:22 CDT Recreational Drug Use Grid Drug Use : None JOSE BAGLEY OPEN SHANK COVERER - 01/31/2015 9:22 CDT ID Screen Drug Resistant Organism : No Travel Within Last 21 Days : No Contact with someone with Ebola : No JOSE BAGLEY IRMA - 01/31/2015 9:22 CDT Source: [employer] Document Id: [id number] CDT!41 Miscellaneous - Conversion, Historical Provider Ser - 01/31/2015 9:22 AM CDT Health Assessment Health Assessment Entered On: 01/31/2015 9:26 CDT Performed On: 01/31/2015 9:22 CDT by JOSE BAGLEY OPEN SHANK COVERER Health Assessment Complete Health Assessment Complete or Modified : Annual Health Assessment Annual Health Assessment Completed : Yes JOSE BAGLEY IRMA - 01/31/2015 9:22 CDT Nutrition Nutrition Risk Factors by History Adult : None JOSE BAGLEY IRMA - 01/31/2015 9:22 CDT Functional Current Daily Living Assistance : None JOSE BAGLEY OPEN SHANK COVERER - 01/31/2015 9:22 CDT Dependent Habits Tobacco Use/Currently Using : No Smoking Status : Former smoker JOSE BAGLEY OPEN SHANK COVERER - 01/31/2015 9:22 CDT Caffeine Use Grid Caffeine Use : Current Type : Coffee Frequency : Daily JOSE BAGLEY OPEN SHANK COVERER - 01/31/2015 9:22 CDT Recreational Drug Use Grid Drug Use : None JOSE BAGLEY [facility] - 01/31/2015 9:22 CDT Psychosocial Domestic Abuse Concerns : None Behavioral Health Screen/Safety Assmt : No Samaritan Preference : Unknown JOSE BAGLEY [facility] - 01/31/2015 9:22 CDT Advance Directive Advanced Directives : No Advance Directive Additional Information : No JOSE BAGLEY [facility] - 01/31/2015 9:22 CDT Educ Needs Learning Style Preference Adult Grid Patient : Printed materials Family : Printed materials JOSE BAGLEY [facility] - 01/31/2015 9:22 CDT Source: [facility] [employer]CHART Document Id: [id number] CDT!30 documented in this encounter Plan of Treatment Not on filedocumented as of this encounter Procedures Procedure Name Priority Date/Time Associated Comments Diagnosis CBC WITHOUT Routine 01/31/2015 9:52 Results for this DIFFERENTIAL, B AM CDT procedure ar e in the results section. THYROID-STIMULATING Routine 01/31/2015 9:52 Resul ts for this HORMONE-SENSITIVE AM CDT procedure are in (S-TSH) the results section. LIPID PANEL, S Routine 01/31/2015 8:53 Results fo r this AM CDT procedure are i n the results section. PROSTATE-SPECIFIC AG Routine 01/31/2015 8:53 Resu lts for this (PSA) SCRN, S AM CDT procedure are in the results section. ASPARTATE Routine 01/31/2015 8:53 Results for this AMINOTRANSFERASE (AST), AM CDT proc edure are in S/P the results section. documented in this encounter Results (ABNORMAL) CBC without Differential (01/31/2015 9:52 AM CDT) Analysis Performed At Patho logist Time Signature Leukocytes 6.9 3.5 - 10.5 POWERCHART X109L Erythrocytes 4.12 (L) 4.32 - POWERCHART 5.72 [id number] Hemoglobin 12.6 (L) 13.5 - POWERCHART 17.5 GDL Hematocrit 35.8 (L) 38.8 - POWERCHART 50.0 MCV 86.9 81.0 - POWERCHART 95.0 FL Platelet Count 186 150 - 450 POWERCHART X109L HX RDW 12.4 11.8 - POWERCHART 15.6 Specimen (Source) Anatomical Collection Method Collection Time Re ceived Time Location / / Volume Laterality Blood 01/31/2015 9:52 AM CDT Piero Alejandro M.D. LAB BLOOD ADD-ON Performing Organization Address City/State/ZIP Code Phon e Number POWERCHART (ABNORMAL) Thyroid-Stimulating Hormone-Sensitive (s-TSH) (01/31/2015 9:52 AM CDT) P athologist Signature TSH 4.52 (H) 0.27 - POWERCHART (Thyrotropin) 4.20 MIUL Specimen (Source) Anatomical Collection Method Collection Time Re ceived Time Location / / Volume Laterality Blood 01/31/2015 9:52 AM CDT Piero Alejandro M.D. LAB BLOOD ADD-ON Performing Organization Address City/State/ZIP Code Phon e Number POWERCHART AST (Aspartate Aminotransferase) (01/31/2015 8:53 AM CDT) Patholo gist Method Time Signature Aspartate 21 8 - 48 POWERCHART Aminotransferase UNITL (AST), S Specimen (Source) Anatomical Collection Method Collection Time Re ceived Time Location / / Volume Laterality Blood 01/31/2015 8:53 AM CDT Piero Alejandro M.D. LAB BLOOD ADD-ON Performing Organization Address City/State/ZIP Code Phon e Number POWERCHART PSA (Prostate-Specific Antigen) Screen (01/31/2015 8:53 AM CDT) P athologist Signature Prostate-Specif 0.8 0.0 - 6.5 POWERCHART ic Ag NGML Specimen (Source) Anatomical Collection Method Collection Time Re ceived Time Location / / Volume Laterality Blood 01/31/2015 8:53 AM CDT Piero Alejandro M.D. LAB BLOOD ADD-ON Performing Organization Address City/State/ZIP Code Phon e Number POWERCHART (ABNORMAL) Lipid Panel (01/31/2015 8:53 AM CDT) athologist Signature Calculated LDL 118 <=129 MGDL POWERCHART Comment: 2014 National Lipid [...] for FH and FDB is available throu [facility]: FH/ADH Genetic Reflex Saleh el (test ADHP). Acquired (non-genetic) causes of markedly increased LDL cholesterol include cholestatic liver disease due to the presence of LpX. If a genetic form of hypercholesterolemia is suspected, family studies including biochemical testing fo r lipids (total cholesterol,triglycerides, LDL cholesterol and HDL cholesterol) are recommended. ??Please contact the laboratory at or the on-line test catalog at [email or web address] for information about how to order these more ts or to speak with a genetic counselor. Further interpretation would require clinical information. Total Cholesterol/HDL Ratio 6.19 PO WERCHART Cholesterol, Total 223 (H) <=199 MGDL POWERCHART Comment: 2013 National Lipid Association recommen dations for Total [...] Low 40-45 mg/dL Acceptable >45 mg/dL Triglycerides 346 (H) <=149 MGDL POWERCHART Comment: 2013 National [...] risk assessment when triglycerides are >400mg/dL. HXLDL/HDL 3 POWERCHART Specimen (Source) Anatomical Collection Method Collection Time Re ceived Time Location / / Volume Laterality Blood 01/31/2015 8:53 AM CDT Piero Alejandro M.D. LAB BLOOD ADD-ON Performing Organization Address City/State/ZIP Code Phon e Number POWERCHART documented in this encounter Visit Diagnoses Not on filedocumented in this encounter Additional Health Concerns Assessment Noted Time PHQ-9 Depression Total Score: 6 01/31/2015 12:28 PM CD T documented as of this encounter
--- OUTSIDE RECORDS SUMMARY | 2022-05-21 11:38 | XMS_ITS | Encounter Summary ---
:1945 Author Organization [facility] Address [address] [place] [address] Care Team Providers Name Role Phone Unavailable Primary Care Provider Unavailable Encounter Details Date Type Department Care Team Description 04/21/2015 Hospital Encounter HX [facility] Piero Moya i, M.D. [address] [place] [address] (Wo rk) Social History Tobacco [...] do you attend sabianist or Never 2021 taoist services? Do you [...] Reading Time Taken Comments Blood Pressure 122/66 04/21/2015 9:45 AM CDT Pulse 69 04/21/2015 9:45 AM CDT Temperature - - Respiratory Rate - - Oxygen Saturation - - Inhaled Oxygen Concentration - - Weight 111 kg (244 lb 4.3 oz) 04/21/2015 9:45 AM CDT Height - - Body Mass [...] encounter Progress Notes Piero Weiss M.D. - 04/21/2015 9:41 AM CDT [id number] CHIEF COMPLAINT/ REASON FOR VISIT Medication check. HISTORY OF PRESENT ILLNESS Jonnathan is a 69 year old male who presents to the clinic today for medication check. Jonnathan had his cholesterol checked on 04/06/2015 and his LDL cholesterol was 131 while on a statin and I sent a prescription for Crestor on 04/19/2015. Jonnathan is here today to discuss other options because the cost of Crestor. Jonnathan has been taking one Lovastatin instead of two since January. In addition to taking the Lovastatin Jonnathan also takes Gemfibrozil which he states he has been taking for twenty years. He takes 35 units of Lantus insulin in the morning and up to 80 units of NovoLog a day. The patient denies any additional questions or concerns at this time. MEDICATIONS Post-visit Medication Reconciliation Reviewed and are as outlined in the EMR dated 04/21/2015. ALLERGIES Penicillin. Sulfa drugs. Doxycycline causes severe rash. SYSTEMS REVIEW See HPI. PAST MEDICAL/SURGICAL HISTORY 1. Benign prostatic hypertrophy. 2. Diabetes mellitus type 2. 3. Hypertension. 4. Hyperlipidemia type II-B. 5. Erectile dysfunction. 6. Pul[facility], but probably some degree of COPD. 7. Status post left cataract surgery at the [place]. 8. Tonsillectomy. 9. AGNIESZKA, prescribed CPAP therapy but is currently not using. PREVENTIVE SERVICES Tobacco use: none. VITAL SIGNS WEIGHT: 110.8 kg. PULSE: 69 /min. SYSTOLIC: 122 mmHg. DIASTOLIC: 66 mmHg. PHYSICAL EXAMINATION GENERAL: Patient is alert and oriented times three, in no acute distress, good hygiene and is dressed appropriately. IMPRESSION/REPORT/PLAN 1. Hyperlipidemia. I had initially asked him to discontinue the Gemfibrozil with the Atorvastatin hestates however that he has been on this medication for many years and it has helped improved his triglycerides from greater than 1,000. As he has not had problems with this medication he will return tohis previous dose of Gemfibrozil and Lovastatin 80 mg daily. 2. Follow up. The patient will contact the clinic with any new or worsening symptoms. This document serves as a record of services personally performed by Piero Roy MD. It was created on their behalf by Lluu Roldan, a trained product manager medical device. The creation of this record is based on the scribe's personal observations and the provider's statements to them. This document has been christie cked and approved by the attending provider. Piero Hinton M.D./livia Electronically Signed By: PIERO WEISS MD On: 06/19/2015 10:56 AM Source: [facility] MHSDOLBEYNONRADSYS Document Id: [id number] documented in this encounter Nursing Notes Natlaee Plunkett, L.P.N. - 10/20/2015 4:00 PM CST Panel management call Attempted to contact patient in regards to being due for AIC. According to letter sent on 05/28/15 patient can have repeat lipids in 6 months. Unable to leave message . Mail box is full. Electronically Signed By: NATALEE PLUNKETT LPN On: 10/20/2015 04:02 PM Source: [facility] POWERCHART Document Id: [id number] REGISTER REPAIRER documented in this encounter Miscellaneous Notes Miscellaneous - Lucila Blevins - 10/12/2015 1:17 PM CST Quality Measures Quality Measures Entered On: 10/17/2015 13:17 CASH REGISTER REPAIRER Performed On: 10/12/2015 13:17 CASH REGISTER REPAIRER by LUCILA BLEVINS LPN Diabetes Date of Last Eye Exam : 10/12/2015 CASH REGISTER REPAIRER LUCILA BLEVINS LPN - 10/17/2015 13:17 CASH REGISTER REPAIRER [facility] Document Id: [id number] CASH REGISTER REPAIRER!3 REGISTER REPAIRER Miscellaneous - Ofelia Stafford RJustina - 04/21/2015 9:45 AM CDT Adult Fbi Field Agent Intake/History Adult Fbi Field Agent Intake/History Entered On: 04/21/2015 9:47 CDT Performed On: 04/21/2015 9:45 CDT by OFELIA TURNER Intake Chief Complaint : med check Peripheral Pulse Rate : 69 /min Systolic Blood Pressure : 122 mmHg Diastolic Blood Pressure : 66 mmHg NIBP Mean : 85 mmHg BP Location : Right upper extremity Blood Pressure Cuff Size : Large Actual Weight : 110.8 kg(Converted to: 244 lb 4 oz) Dosing Weight Clinic : 110.8 kg OFELIA TURNER - 04/21/2015 9:45 CDT General Info Languages : Indonesian Is Patient Female and 13-50 no hysterectomy : No OFELIA TURNER - 04/21/2015 9:45 CDT Subjective Pain Symptoms : No OFELIA TURNER 04/21/2015 9:45 CDT Dependent Habits Tobacco Use/Currently Using : No Exposure to Tobacco Smoke : Other: quit 40 years ago Smoking Status : Former smoker OFELIA TURNER 04/21/2015 9:45 CDT Tobacco Use Grid Type : Cigarettes OFELIA TURNER 04/21/2015 9:45 CDT Caffeine Use Grid Caffeine Use : Current Type : Coffee Frequency : Daily OFELIA TURNER 04/21/2015 9:45 CDT Recreational Drug Use Grid Drug Use : None OFELIA TURNER 04/21/2015 9:45 CDT Source: [facility] POWERCHART Document Id: [id number] CDT!31 documented in this encounter Plan of Treatment Not on filedocumented as of this encounter Visit Diagnoses Not on filedocumented in this encounter Additional Health Concerns Assessment Noted Time PHQ-9 Depression Total Score: 6 01/31/2015 12:28 PM CD T documented as of this encounter
--- OUTSIDE RECORDS SUMMARY | 2022-05-21 11:39 | XMS_ITS | Encounter Summary ---
:1945 Author Organization [facility] Address [address] [place] [address] Care Team Providers Name Role Phone Unavailable Primary Care Provider Unavailable Encounter Details Date Type Department Care Team Description 10/13/2013 Hospital Encounter [facility]X [facility] Piero Grier M.D. [address] [place], [place] [phone] (Wo rk) Social History [...] do you attend baptism or Never 2021 latter-day services? Do you [...] by 0 200811/06/2021 mg tablet mouth. insulin NPH and regular LW Addl 0 [...] Notes Miscellaneous - Piero Weiss M.D. - 10/23/2013 10:05 PM WELCOME CENTER ATTENDANT Custom Result Letter 23 October 2013 JONNATHAN COSTA [id number] [facility] [place] [phone] Dear JONNATHAN COSTA, The sugar seems improved as the A1C is lower. [place] is less than 7. T he cholesterol is somewhat high. I'd like to see if we can lower it with diligence to low fat diet and healthy lifestyle. LDL goal is less than 100. Let's check fasting labs again in 6 months. Result Name Current Result Previous Result Normal Range AST (unit/L) 29 10/13/2013 31 07/19/2013 8 - 48 Cholesterol (mg/dL) (H) 222 10/13/2013 (H) 204 07/19/2013 0 - 200 Trig (mg/dL) (H) 351 10/13/2013 (H) 315 07/19/2013 0 - 150 HDL (mg/dL) (L) 39.0 10/13/2013 (L) 36.0 07/19/2013 40.0 - 60.0 LDL Calculated (mg/dL) (H) 113 10/13/2013 (H) 105 07/19/2013 0 - 100 Hgb A1c (%) (H) 7.7 10/13/2013 (H) 8.1 07/19/2013 4.0 - 6.0 Sincerely, PIERO MURILLO [address] [facility] [place] [address] Electronic Signature Electronically Signed By: PIERO MURILLO MD On: 23 October 2013 This document has images extracted. Source: [facility] POWERCHART Document Id: [id number] Electronically signed by Conversion, [facility] [place] [employer] Lieutenant [id number] at 02/25/2017 2:45 PM CDT documented in this encounter Plan of Treatment Not on filedocumented as of this encounter Procedures Procedure Name Priority Date/Time Associated Comments Diagnosis LIPID PANEL, S Routine 10/13/2013 8:04 Results fo r this AM WELCOME CENTER ATTENDANT procedure are i n the results section. ASPARTATE Routine 10/13/2013 8:04 Results for this AMINOTRANSFERASE (AST), AM WELCOME CENTER ATTENDANT proc edure are in S/P the results section. documented in this encounter Results (ABNORMAL) Lipid Panel (10/13/2013 8:04 AM WELCOME CENTER ATTENDANT) [facility] Method Time Signature Cholesterol, 222 (H) 0 - 200 POWERCHART Total MGDL HX HDL 39.0 (L) 40.0 - POWERCHART 60.0 MGDL Triglycerides 351 (H) 0 - 150 POWERCHART MGDL Calculated LDL 113 (H) 0 - 100 POWERCHART MGDL Specimen (Source) Anatomical Collection Method Collection Time Re ceived Time Location / / Volume Laterality Blood 10/13/2013 8:04 AM WELCOME CENTER ATTENDANT Piero Alejandro M.D. LAB BLOOD ADD-ON Performing Organization Address City/State/[facility] Code Phon e Number POWERCHART AST (Aspartate Aminotransferase) (10/13/2013 8:04 AM WELCOME CENTER ATTENDANT) [facility] Method Time Signature Aspartate 29 8 - 48 POWERCHART Aminotransferase UNITL (AST), S Specimen (Source) Anatomical Collection Method Collection Time Re ceived Time Location / / Volume Laterality Blood 10/13/2013 8:04 AM WELCOME CENTER ATTENDANT Piero Alejandro M.D. LAB BLOOD ADD-ON Performing Organization Address City/State/ZIP Code Phon e Number POWERCHART documented in this encounter Visit Diagnoses Not on filedocumented in this encounter
--- OUTSIDE RECORDS SUMMARY | 2022-05-21 11:39 | XMS_ITS | Encounter Summary ---
:1945 Author Organization [facility] Address [address] [place] [address] Care Team Providers Name Role Phone Unavailable Primary Care Provider Unavailable Encounter Details Date Type Department Care Team Description 07/19/2013 Hospital Encounter HX [facility] Piero Grier M.D. [address] [place], [place] [phone] (Wo rk) Social History [...] do you attend adventism or Never 2021 congregational services? Do you [...] 22 (PRINIVIL,ZESTRIL) 10 mg mouth daily. tablet lovastatin (MEVACOR) 40 Take 2 tablets by [...] Notes Miscellaneous - Piero Weiss M.D. - 07/20/2013 1:55 PM CDT General Message Document Contains Addenda Addendum by PATRICE COLE on 20 July 2013 14:44:14 CDT left message to call back From: PIERO MURILLO MD To: PATRICE COLE; Sent: 07/20/2013 13:55:13 CDT Subject: General Message Have Mr Costa come back in to discuss lab results. We need to make some medication changes. Source: [facility] POWERCHART Document Id: [id number] Electronically signed by Conversion, [facility] Electronic Development Technician [id number] at 02/26/2017 2:51 AM CDT documented in this encounter Plan of Treatment Not on filedocumented as of this encounter Procedures Procedure Name Priority Date/Time Associated Comments Diagnosis ALBUMIN, RANDOM, U Routine 07/19/2013 9:25 Result s for this AM CDT procedure are i n the results section. LIPID PANEL, S Routine 07/19/2013 9:23 Results fo r this AM CDT procedure are i n the results section. PROSTATE-SPECIFIC AG Routine 07/19/2013 9:23 Resu lts for this (PSA) SCRN, S AM CDT procedure are in the results section. ASPARTATE Routine 07/19/2013 9:23 Results for this AMINOTRANSFERASE (AST), AM CDT proc edure are in S/P the results section. HEMOGLOBIN A1C, B Routine 07/19/2013 9:23 Results for this AM CDT procedure are i n the results section. BASIC METABOLIC PANEL, Routine 07/19/2013 9:23 Re sults for this S/P AM CDT procedure are i n the results section. documented in this encounter Results (ABNORMAL) Microalbumin, Random, Urine (07/19/2013 9:25 AM CDT) P athologist Signature HXU Albumin % 167 MGDL POWERCHART Creatinine, 123 MGDL POWERCHART Random, U Albumin/Creati 136 (H) 0 - 17 POWERCHART nine Ratio MGGM Specimen (Source) Anatomical Collection Method Collection Time Re ceived Time Location / / Volume Laterality Urine 07/19/2013 9:25 AM CDT Piero Alejandro M.D. LAB URINE ORDERABLES Performing Organization Address City/State/ZIP Code Phon e Number POWERCHART PSA (Prostate-Specific Antigen) Screen (07/19/2013 9:23 AM CDT) athologist Signature Prostate-Specif 0.70 <=6.5 NGML POWERCHART ic Ag Comment: The testing method is an electrochemilum inescence assay manufactured by [employer] and performed on the Modular or Tariq system . Values obtained with different assay met hods or kits may be different and cannot be used inte rchangeably. Test results cannot be interpreted as ab solute evidence for the presence or absence of malignant disease. Test Performed by: [place] [address] Slat Basket Maker Helper Machine: Naveen cox III, M.D. Specimen (Source) Anatomical Collection Method Collection Time Re ceived Time Location / / Volume Laterality Blood 07/19/2013 9:23 AM CDT Piero Alejandro M.D. LAB BLOOD ADD-ON Performing Organization Address City/State/ZIP Code Phon e Number POWERCHART (ABNORMAL) BMP (Basic Metabolic Panel) (07/19/2013 9:23 AM CDT) athologist Signature BUN (Blood Urea 17 7 - 23 POWERCHART Nitrogen), S MGDL Creatinine 0.9 0.9 - 1.4 POWERCHART MGDL Potassium, S 4.4 3.5 - 4.8 POWERCHART MMOLL Sodium, S 141 135 - 145 POWERCHART MMOLL Chloride, S 106 100 - 108 POWERCHART MMOLL CO2 Total 22 22 - 29 POWERCHART MMOLL Calcium, Total, 9.4 8.5 - 10.5 POWERCHART S MGDL HXeGFR (MDRD) >60 MLMIN POWERCHART eGFR >60 MLMIN POWERCHART Black/ Glucose, 184 (H) 70 - 99 POWERCHART Fasting, S MGDL Specimen (Source) Anatomical Collection Method Collection Time Re ceived Time Location / / Volume Laterality Blood 07/19/2013 9:23 AM CDT Piero Alejandro M.D. LAB BLOOD ADD-ON Performing Organization Address City/[facility] Code Phon e Number POWERCHART AST (Aspartate Aminotransferase) (07/19/2013 9:23 AM CDT) [facility] Method Time Signature Aspartate 31 8 - 48 POWERCHART Aminotransferase UNITL (AST), S Specimen (Source) Anatomical Collection Method Collection Time Re ceived Time Location / / Volume Laterality Blood 07/19/2013 9:23 AM CDT Piero Alejandro M.D. LAB BLOOD ADD-ON Performing Organization Address City/[facility]/ZIP Code Phon e Number POWERCHART (ABNORMAL) Lipid Panel (07/19/2013 9:23 AM CDT) [facility] gist Method Time Signature Cholesterol, 204 (H) 0 - 200 POWERCHART Total MGDL HX HDL 36.0 (L) 40.0 - POWERCHART 60.0 MGDL Triglycerides 315 (H) 0 - 150 POWERCHART MGDL Calculated LDL 105 (H) 0 - 100 POWERCHART MGDL Specimen (Source) Anatomical Collection Method Collection Time Re ceived Time Location / / Volume Laterality Blood 07/19/2013 9:23 AM CDT Piero Alejandro M.D. LAB BLOOD ADD-ON Performing Organization Address City/State/ZIP Code Phon e Number POWERCHART (ABNORMAL) Hemoglobin A1c (07/19/2013 9:23 AM CDT) P athologist Signature Hemoglobin A1c, 8.1 (H) 4.0 - 6.0 POWERCHART B Specimen (Source) Anatomical Collection Method Collection Time Re ceived Time Location / / Volume Laterality Blood 07/19/2013 9:23 AM CDT Piero Alejandro M.D. LAB BLOOD ADD-ON Performing Organization Address City/State/ZIP Code Phon e Number POWERCHART documented in this encounter Visit Diagnoses Not on filedocumented in this encounter
--- OUTSIDE RECORDS SUMMARY | 2022-05-21 11:39 | XMS_ITS | Encounter Summary ---
:1945 Author Organization [facility] Address [address] [place] [address] Care Team Providers Name Role Phone Unavailable Primary Care Provider Unavailable Encounter Details Date Type Department Care Team Description 01/31/2009 Hospital Encounter HX NO MAPPING Toño Phillips M.D. [address] [place], [place] [phone] (Wo rk) Social History Tobacco Use Types [...] or relatives? How often do you attend tenriism or Never 2021 restorationism services? Do you belong to any clubs or No 10/09/2021 organizations such as tenriism groups, unions, fraternal or athletic groups, or [...] Sig Dispensed Refills Start Date End Date gemfibroziL (LOPID) 600 Take 1 tablet by [...] Diagnosis Comme nts DX CHEST AP OR PA Routine 01/31/2009 2:00 PM Resu lts for this AND LATERAL 2 VIEWS CDT procedur e are in the results section. documented in this encounter Results DX Chest AP or PA and Lateral 2 Views (01/31/2009 2:00 PM CDT) Anatomical Region Laterality Modality Chest N/A Radiographic Imaging Specimen (Source) Anatomical Collection Method Collection Time Re ceived Time Location / / Volume Laterality 01/31/2009 2:00 PM CDT Narrative 01/31/2009 2:00 PM CDT Originally Signed By UNKNOWN, PERSONNEL Reason for exam: HEMOPTYSIS FINDINGS: The heart is normal in size an d the lungs are clear. ?? CONCLUSION: ??Normal chest. Procedure Note ProviderRena M.D. - 03/04/2017F ormatting of this note might be different from the original. Originally Signed By UNKNOWN, PERSONNEL Reason for exam: HEMOPTYSIS FINDINGS: The heart is normal in size an d the lungs are clear. CONCLUSION: Normal chest. Historical Provider IMG DIAGNOSTIC IMAGING PROCE DURES documented in this encounter Visit Diagnoses Not on filedocumented in this encounter
--- OUTSIDE RECORDS SUMMARY | 2022-05-21 11:39 | XMS_ITS | Encounter Summary ---
:1945 Author Organization [facility] Address [address] [place] [address] Care Team Providers Name Role Phone Unavailable Primary Care Provider Unavailable Encounter Details Date Type Department Care Team Description 07/07/2013 Hospital Encounter [facility]X [facility] Piero Moya i, M.D. [address] [place] [address] (Wo rk) Social History Tobacco [...] or slept in a detention (including now)? Sex Assigned at Date Recorded Male 05/21/2018 2:34 PM CDT documented as of this encounter Last Filed Vital Signs Vital Sign Reading Time Taken Comments Blood Pressure 134/70 07/07/2013 10:38 AM CDT Pulse 88 07/07/2013 10:35 AM CDT Temperature - - Respiratory Rate 20 07/07/2013 10:35 AM CDT Oxygen Saturation - - Inhaled Oxygen Concentration - - Weight 111 kg (244 lb 11.4 oz) 07/07/2013 10:35 AM CDT Height 193 cm (6' 3.98) 07/07/2013 10:35 AM CDT Body Mass Index 29.8 07/07/2013 10:35 AM CDT documented in this encounter Medications [...] encounter H&P Notes Piero Weiss M.D. - 07/07/2013 9:42 AM CDT [id number] CHIEF COMPLAINT/ REASON FOR VISIT Review medications, review medical concerns, update preventive services. MEDICATIONS Post-visit Medication Reconciliation 1. Budesonide-formoterol 2 puffs twice daily. 2. Finasteride 5mg once daily. 3. Prednisone 10mg once daily. 4. Losartan 100mg once daily. 5. Mometasone 2 puffs twice daily. 6. Formoterol 1 capsule every 12 hours. 7. Humalog. 8. Lantus 35 units subcutaneous bedtime. 9. Multivitamin once daily. 10. Lisinopril 40mg once daily. 11. Gemfibrozil 600mg twice daily. 12. Lovastatin 80 mg once daily. 13. Aspirin 81 mg once daily. 14. Doxazosin 4mg at hs. ALLERGIES Doxycycline. Penicillin. Sulfa drugs. SYSTEMS REVIEW He goes to the [place] for much of his medical care. He checks his blood sugar 5 times daily and uses NovoLog 3 times daily. He reports irritability when taking prednisone that he uses with COPD exacerbations. He has 3 hernias, but denies pain and declines surgery. He reports difficulty with weight loss. He wakes up multiples times a night to urinate. He otherwise has no complaints. No headaches, numbnessor tingling. No changes in vision or hearing. No sore throat, runny nose, earache or cough. No shortness of breath or chest pain. No abdominal pain or change in bowel habits. No hematuria or dysuria. No musculoskeletal aches or pains. No lymph node swelling. No easy bruising or bleeding. No excessive thirst or hunger. No mood or behavioral difficulties. PAST MEDICAL/SURGICAL HISTORY 1. Benign prostatic hypertrophy 2. Diabetes mellitus type 2 3. Hypertension 4. Hyperlipidemia type II-B 5. Erectile dysfunction 6. Pulmonary symptomatology, diagnosis at the [place] unclear, but probably some degree of COPD 7. Status post left cataract surgery at the [place] 8. Tonsillectomy PREVENTIVE SERVICES: Tobacco use: None. Lipid panel: 07/07/2013 Colonoscopy: ordered today. Influenza: 07/07/2013 Tetanus booster: 01/14/2009 Zoster vaccine: 06/2012 at the [place] Pneumovax: 11/15/2008 SOCIAL HISTORY He is . He doesn't smoke. 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 FAMILY HISTORY Mother had hypertension. There is no colon or prostate cancer in the family. There is no diabetes. Father had an [place] at age 76. Asthma and mental illness in a brother, sister. VITAL SIGNS HEIGHT: 193 cm WEIGHT: 111 kg BMI: 29.8 kg/m2 TEMPERATURE: 36.8 DegC PULSE: 88 /min RESPIRATORY RATE: 20 /min BLOOD PRESSURE: 140 mmHg/68 mmHg PHYSICAL EXAMINATION GENERAL: Patient is alert and oriented times three, in no acute distress, good hygiene and is dressed appropriately. ENT: Tympanic membranes are normal bilaterally. Oropharynx is without erythema or exudate. Inferior nasal turbinates are without injection. Neck is without adenopathy. LYMPH NODES: Not palpably enlarged and no nodules are palpated. HEART: Regular rate and rhythm without murmur. LUNGS: Clear to auscultation. ABDOMEN: Soft and nontender with no masses. RECTUM: Perirectal area appears normal sphincter tone is normal in no rectal masses are palpated. Prostate is small smooth and non nodular. GENITALIA: External genitalia is circumcised without lesions. Testes are without mass. There is a small amount of nodularity to the epididymal area on the left. No inguinal her hernias are palpated. EXTREMITIES: Within normal limits. IMPRESSION/REPORT/PLAN 1. Health care maintenance: He is encouraged to achieve and maintain healthy body weight through diet and exercise. He is reminded of the need for yearly eye and regular dental visits. He will schedule a colonoscopy at his earliest convenience. A flu shot is given today. PSA will be checked at a later date. 2. Hyperlipidemia: He will return for a lipid panel when he is fasting. 3. Diabetes: A1C is ordered today to be performed at a later date. 4. Hypertension: BMP is ordered today. This is well controlled and he will remain on his current medications. 5. Probable COPD: He is doing well on his current inhaled medications and intermittent prednisone use. 6. Follow up: The patient will contact the clinic with any new or worsening symptoms. This document serves as a record of services personally performed by Piero Murillo MD. It was created on their behalf by Krista Sotelo, a trained medical imaging technician. The creation of this record is based on the scribe's personal observations and the provider's statements to them. This document has been christie cked and approved by the attending provider. Piero Murillo M.D./shelly Electronically Signed By: PIERO MURILLO MD On: 07/23/2013 08:17 AM Source: [facility] MHSDOLBEYNONRADSYS Document Id: [id number] documented in this encounter Nursing Notes Lucila Blevins - 11/03/2014 10:12 AM CST panel managment Document Contains Addenda Addendum by LUCILA BLEVINS LPN on 04 November 2014 13:53 FINANCE INTERN Pt returned call and will call in approx 1 month to schedule. Modified by and Electronically Signed by: LUCILA BLEVINS LPN On: 11/04/2014 01:53 PM Pt is due for annual physical as well as labs for monitoring of diabetes. Attempted to contact pt, voice mail full. Was able to leave call back number. Electronically Signed By: LUCILA BLEVINS LPN On: 11/03/2014 10:13 AM Source: [facility] POWERCHART Document Id: [id number] NCE INTERN Roxann Echols - 07/08/2013 11:42 AM CDT Colonoscopy Document Contains Addenda Addendum by ROXANN ECHOLS on 21 July 2013 16:45 CDT [facility] in [address] [address] Referral Authorization: Procedure or visit authorized for: Colonoscopy (CPT code G0105) Referred by: Dr. Murillo Contact Location: [facility] Contact Referred to: Dr. Major Contact Location: [facility] Contact Authorization Needed: yes or _ X _ no If yes, Referral valid: From: To: Number of visits approved for: Authorized by: [email or web address] provider self service Contact Number: Date Authorized: 07-21-2013 Reference Number: or not applicable per [employer]. Individual that received the Referral Authorization: LML Modified by and Electronically Signed by: ROXANN ECHOLS On: 07/21/2013 04:45 PM Addendum by ROXANN ECHOLS on 21 July 2013 8:50 CDT DATE: 07-21-2013 SCHEDULED FOR: Colonoscopy AT [facility] WITH DR. MAJOR DATE of Procedure: 08-10-2013 TIME of Procedure: 0900 PER: DR. MURILLO/DR. TINOCO ORDERS. Prep instructions have been sent to the patient. Patient advised to not take aspirin or ibuprofen for 10 days prior to the scheduled procedure. Insurance referral done X Yes __No Copies of referring healthcare provider notes sent to [facility]. Modified by and Electronically Signed by: ROXANN ECHOLS On: 07/21/2013 08:50 AM Addendum by ROXANN ECHOLS on 12 July 2013 10:11 CDT [facility] [place] [address] Patient Communication for follow up treatment for: _Colonoscopy_ X Attempt made to contact patient made on: _07-12-2013 (per patient's request)__. a. Patient is schedule to be seen on: . b. Patient is refusing recommended treatment at this time. c. X Message left for the patient at : _[phone]_we return call to: Roxann Echols LPN at [phone]. d. Individual that has contacted the patient: Roxann Echols LPN. After the following situations: ?? Patient Scheduled ?? Patient Refusal ?? No Return Phone call after the third failed attempt Follow up communication will occur to the referring provider as follows. Referring Provider: Contacted on: Contacted as follows: Voice Message Fax Message Center via the EMR Individual that has contacted the Recommended Provider: Modified by and Electronically Signed by: ROXANN ECHOLS On: 07/12/2013 10:11 AM [facility] [place] [address] Patient Communication for follow up treatment for: Colonoscopy _ __ Attempt made to contact patient made on: __[phone]; patient requested a call at another time_. a. Patient is schedule to be seen on: . b. Patient is refusing recommended treatment at this time. c. Message left for the patient at : to return call to: Roxann Echols LPN at [phone]. d. Individual that has contacted the patient: Roxann Echols LPN. After the following situations: ?? Patient Scheduled ?? Patient Refusal ?? No Return Phone call after the third failed attempt Follow up communication will occur to the referring provider as follows. Referring Provider: Contacted on: Contacted as follows: Voice Message Fax Message Center via the EMR Individual that has contacted the Recommended Provider: Electronically Signed By: ROXANN ECHOLS On: 07/08/2013 11:43 AM Source: [facility] ? IO Document Id: [id number] documented in this encounter Miscellaneous Notes Miscellaneous - Piero Weiss M.D. - 07/07/2013 12:37 PM CDT General Message Document Contains Addenda Addendum by ROXANN ECHOLS on 21 July 2013 08:51:44 CDT From: ROXANN ECHOLS ( Surgery Nurse) To: PIERO MURILLO MD; Sent: 07/21/2013 08:51:44 CDT Subject: FW: General Message Patient scheduled for colonoscopy on 08-10-2013 at 0900. Addendum by ROXANN ECHOLS on 08 July 2013 11:41:51 CDT Spoke with patient; requesting a call back at another time. Addendum by JOSE BAGLEY LPN on 07 July 2013 12:37:30 CDT From: JOSE BAGLEY LPN To: Surgery Nurse; Sent: 07/07/2013 12:37:30 CDT Subject: FW: General Message From: PIERO MURILLO MD To: JOSE BAGLEY LPN; Sent: 07/07/2013 12:37:02 CDT Subject: General Message Mr Costa is interested in a screening colonoscopy. It has been over 10 years. He claims a history of polyps but not sure what type. You can call to set up but he prefers to wait until July. [facility] Document Id: [id number] Miscellaneous - Piero Weiss M.D. - 07/07/2013 12:35 PM CDT Ambulatory Patient Summary [address] [address] Visit Information Name: BETH COSTA [facility] Number: [id number] Current Date: 07/07/2013 12:35:20 Physicians Attending Provider: PIERO MURILLO MD Primary Care Provider: PIERO MURILLO MD Your Medications Here is a list of your medications. It is important to take your medications as directed. Use a pillbox or chart to help remind you to take your medications. Please let your doctor or nurse know if you have problems taking your medications. Medication/Strength Dose Route Frequency Indications/Special Instructions/Comments/Notes doxazosin (doxazosin 4 mg oral tablet) 4 mg Oral once a day (at bedtime) budesonide-formoterol (budesonide-formoterol 160 mcg-4.5 mcg/inh inhalation aerosol) 2 puff(s) Inhalation two times a day predniSONE (predniSONE 10 mg oral tablet) See special instructions Oral as directed finasteride (finasteride 5 mg oral tablet) 5 mg Oral once a day losartan (losartan 100 mg oral tablet) 100 mg Oral once a day mometasone (mometasone 220 mcg/inh inhalation aerosol powder) 2 puff(s) Inhalation two times a day formoterol (formoterol 12 mcg inhalation capsule) 1 cap(s) Inhalation every 12 hours insulin lispro (Humalog) insulin glargine (Lantus) 35 units Subcutaneous once a day (at bedtime) metformin (metformin 1000 mg oral tablet) 1 tab(s) Oral two times a day with meals multivitamin (multivitamin) Oral once a day *lisinopril (lisinopril 40 mg oral tablet) 1 tab(s) Oral once a day gemfibrozil (gemfibrozil 600 mg oral tablet) 1 tab(s) Oral two times a day lovastatin (lovastatin 40 mg oral tablet, extended release) 80 mg Oral once a day (at bedtime) aspirin (aspirin 81 mg oral tablet) 1 [...] them until youcontact your provider for clarification. Your Allergies & Intolerances Substance Reaction Symptoms Category Comments doxycycline severe rash Drug penicillin Drug sulfa drugs Drug Your Problem List Problem Status Onset Comments Diabetes mellitus type II Active 11/05/1996 DM Type2 Active 08/24/2008 DM Type2 Neuropathy Active 08/24/2008 Hypertension Active Hypercholesterolemia* Active Your Upcoming Appointments Date Time Location Reason Provider No Appointments found Your Goals/Additional instructions: Source: [facility] POWERCHART Document Id: [id number] Miscellaneous - Piero Weiss M.D. - 07/07/2013 12:35 PM CDT Ambulatory Depart Summary [address] [address] Visit Information Name: BETH COSTA [facility] Number: [id number] Visit Date: 07/07/2013 12:35:19 Attending Provider: PIERO MURILLO MD Primary Care Provider: PIERO MURILLO MD BETH COSTA has been given the following list of medications: Your Medications It is important to take your medications as directed. Use a pill box or chart to help remind you to take your medications. Please let your doctor or nurse know if you have problems taking your medications. Medication/Strength Dose Route Frequency Indications/Special Instructions/Comments/Notes doxazosin (doxazosin 4 mg oral tablet) 4 mg Oral once a day (at bedtime) budesonide-formoterol (budesonide-formoterol 160 mcg-4.5 mcg/inh inhalation aerosol) 2 puff(s) Inhalation two times a day predniSONE (predniSONE 10 mg oral tablet) See special instructions Oral as directed finasteride (finasteride 5 mg oral tablet) 5 mg Oral once a day losartan (losartan 100 mg oral tablet) 100 mg Oral once a day mometasone (mometasone 220 mcg/inh inhalation aerosol powder) 2 puff(s) Inhalation two times a day formoterol (formoterol 12 mcg inhalation capsule) 1 cap(s) Inhalation every 12 hours insulin lispro (Humalog) insulin glargine (Lantus) 35 units Subcutaneous once a day (at bedtime) metformin (metformin 1000 mg oral tablet) 1 tab(s) Oral two times a day with meals multivitamin (multivitamin) Oral once a day *lisinopril (lisinopril 40 mg oral tablet) 1 tab(s) Oral once a day gemfibrozil (gemfibrozil 600 mg oral tablet) 1 tab(s) Oral two times a day lovastatin (lovastatin 40 mg oral tablet, extended release) 80 mg Oral once a day (at bedtime) aspirin (aspirin 81 mg oral tablet) 1 [...] them until youcontact your provider for clarification. Additional Information: Source: [facility] POWERCHART Document Id: [id number] Miscellaneous - Conversion, Historical Provider Ser - 07/07/2013 10:38 AM CDT Ambulatory Vitals Height Weight Ambulatory Vitals Height Weight Entered On: 07/07/2013 10:38 CDT Performed On: 07/07/2013 10:38 CDT by JOSE BAGLEY LPN Vitals/Ht/Wt Systolic Blood Pressure : 134 mmHg Diastolic Blood Pressure : 70 mmHg NIBP Mean : 91 mmHg BP Location : Left upper extremity Blood Pressure Cuff Size : Regular JOSE BAGLEY LPN - 07/07/2013 10:38 CDT Source: [facility] ? IO Document Id: [id number] CDT!7 Miscellaneous - Conversion, Historical Provider Ser - 07/07/2013 10:35 AM CDT Adult Immunochemist Intake/History Adult Immunochemist Intake/History Entered On: 07/07/2013 10:37 CDT Performed On: 07/07/2013 10:35 CDT by DEREJE BAGLEYMEI MCCAIN LPN Intake Chief Complaint : physical Temperature Core : 36.8 DegC(Converted to: 98.2 DegF) Peripheral Pulse Rate : 88 /min Respiratory Rate : 20 /min Systolic Blood Pressure : 140 mmHg Diastolic Blood Pressure : 68 mmHg NIBP Mean : 92 mmHg BP Location : Right upper extremity Blood Pressure Cuff Size : Regular Height : 193 cm(Converted to: 6 ft 4 inch(es), 75.98 inch(es)) Actual Weight : 111 kg(Converted to: 244 lb 11 oz) Dosing Weight Clinic : 111 kg Clinic BSA : 2.44 Body Mass Index : 29.8 kg/m2 JOSE BAGLEY [facility] - 07/07/2013 10:35 CDT General Info Information Given By : Patient Languages : Martiniquais JOSE BAGLEY [facility] - 07/07/2013 10:35 CDT Subjective Pain Symptoms : No JOSE BAGLEY [facility] - 07/07/2013 10:35 CDT Dependent Habits Tobacco Use/Currently Using : No Tobacco Use/Last 12 months : No Smoking Status : Former smoker JOSE BAGLEY [facility] - 07/07/2013 10:35 CDT Tobacco Use Grid Last Use : former JOSE BAGLEY [facility] - 07/07/2013 10:35 CDT Caffeine Use Grid Caffeine Use : Current Type : Coffee Frequency : Daily JOSE BAGLEY [facility] - 07/07/2013 10:35 CDT Recreational Drug Use Grid Drug Use : None JOSE BAGLEY [facility] - 07/07/2013 10:35 CDT Source: [facility] ? IO Document Id: [id number] CDT!36 Miscellaneous - Conversion, Historical Provider Ser - 07/07/2013 10:35 AM CDT Health Assessment Health Assessment Entered On: 07/07/2013 10:37 CDT Performed On: 07/07/2013 10:35 CDT by JOSE BAGLEY LPN Health Assessment Complete Health Assessment Complete or Modified : Annual Health Assessment Annual Health Assessment Completed : Yes JOSE BAGLEY LPN - 07/07/2013 10:35 CDT Nutrition Nutrition Risk Factors by History Adult : None JOSE BAGLEY LPN - 07/07/2013 10:35 CDT Functional Current Daily Living Assistance : None JOSE BAGLEY [facility] - 07/07/2013 10:35 CDT Dependent Habits Tobacco Use/Currently Using : No Smoking Status : Former smoker JOSE BAGLEY LPN - 07/07/2013 10:35 CDT Caffeine Use Grid Caffeine Use : Current Type : Coffee Frequency : Daily JOSE BAGLEY LPN - 07/07/2013 10:35 CDT Recreational Drug Use Grid Drug Use : None JOSE BAGLEY LPN - 07/07/2013 10:35 CDT Psychosocial Domestic Abuse Concerns : None JOSE BAGLEY [facility] - 07/07/2013 10:35 CDT Advance Directive Advanced Directives : No JOSE BAGLEY LPN - 07/07/2013 10:35 CDT Educ Needs Learning Style Preference Adult Grid Patient : Printed materials Family : Printed materials JOSE BAGLEY LPN - 07/07/2013 10:35 CDT Source: [facility] POWERCHART Document Id: [id number] CDT!27 documented in this encounter Plan of Treatment Not on filedocumented as of this encounter Visit Diagnoses Not on filedocumented in this encounter
--- OUTSIDE RECORDS SUMMARY | 2022-05-21 11:39 | XMS_ITS | Encounter Summary ---
:1945 Author Organization [facility] Address [address] [place] [address] Care Team Providers Name Role Phone Unavailable Primary Care Provider Unavailable Encounter Details Date Type Department Care Team Description 03/03/2003 Hospital Encounter HX [facility] Oni Felix M.D. [address] [place], [place] [phone] (Wo rk) Social History [...] do you attend baptism or Never 2021 lutheran services? Do you [...]
--- OUTSIDE RECORDS SUMMARY | 2022-05-21 11:39 | XMS_ITS | Encounter Summary ---
:1945 Author Organization [facility] Address [address] [place] [address] Care Team Providers Name Role Phone Unavailable Primary Care Provider Unavailable Encounter Details Date Type Department Care Team Description 10/16/2009 Hospital Encounter HX NO MAPPING Toño Phillips M.D. [address] [place], [place] [address] (Wo rk) Social History [...] do you attend shinto or Never 2021 yazdanism services? Do you [...] nts DX CHEST AP OR PA Routine 10/16/2009 4:40 PM Resu lts for this AND LATERAL 2 VIEWS [employer] procedur e are in the results section. documented in this encounter Results DX Chest AP or PA and Lateral 2 Views (10/16/2009 4:40 PM [employer]) Anatomical Region Laterality Modality Chest N/A Radiographic Imaging Specimen (Source) Anatomical Collection Method Collection Time Re ceived Time Location / / Volume Laterality 10/16/2009 4:40 PM [employer] [facility] Addenda Addendum by Provider, Pato Chase n 10/16/2009 4:40 PM [employer] RAD^^^OW XR Chest 2 Views 10/16/2009 16:40:00 Addendum by ProviderRena M.D. o n 10/16/2009 4:40 PM [employer] RAD^^^MA XR CHEST 2 VIEWS 10/16/2009 16:40:00 Narrative 10/16/2009 5:09 PM [employer] FINDINGS: The heart is normal in size an d the lungs are clear. ?? CONCLUSION: ??Normal chest. Procedure Note Franklyn Crain M.D. / Provider, Sahil jordan M.D. - 02/20/2017 FINDINGS: The heart is normal in size an d the lungs are clear. CONCLUSION: Normal chest. Alysha FlowersTMauro(R), R.T.(R)(M) IMG DIAGNOSTIC IMAGING PROCEDURES documented in this encounter Visit Diagnoses Not on filedocumented in this encounter
--- OUTSIDE RECORDS SUMMARY | 2022-05-21 11:39 | XMS_ITS | Encounter Summary ---
:1945 Author Organization [facility] Address [address] [place] [address] Care Team Providers Name Role Phone Unavailable Primary Care Provider Unavailable Encounter Details Date Type Department Care Team Description 06/29/2002 Hospital Encounter HX [facility] UROLOGY Provider, Hist orical Social History Tobacco Use Types Packs/Day Years [...] do you attend jainism or Never 2021 zoroastrianism services? Do you [...]
--- OUTSIDE RECORDS SUMMARY | 2022-05-21 11:39 | XMS_ITS | Encounter Summary ---
:1945 Author Organization [facility] Address [address] [place] [address] Care Team Providers Name Role Phone Unavailable Primary Care Provider Unavailable Encounter Details Date Type Department Care Team Description 08/22/2010 Hospital Encounter HX [facility] José Collazo M.D. [address] [place] [address] [phone] (Wo rk) Social History Tobacco [...] do you attend denominational or Never 2021 spiritism services? Do you [...] slept in a skilled nursing (including now)? Sex Assigned at Date Recorded [...] (PRINIVIL,ZESTRIL) 10 mg mouth daily. tablet metFORMIN Take 1 tablet by 0 08/22/2010 06/22/20 18 (for_GLUCOPHAGE) 1,000 mouth 2 (two) times a mg tablet day with meals. metFORMIN (GLUMETZA) Take 1 tablet by 0 9 11/07/2021 1,000 mg 24 hr tablet mouth daily. documented as of this encounter Progress Notes Kelly Phillips M.D. - 08/22/2010 12:00 AM CST [id number] IMPRESSION/REPORT/PLAN The patient is ASA Class II for operation. SPECIFIC PREOPERATIVE INSTRUCTIONS TO THE PATIENT 1. Take his puffers on the morning of surgery, but otherwise be strictly NPO after midnight on the morning of surgery. 2. Take only half of his Lantus the day before surgery. 3. Obviously take no Humalog on the morning of surgery. 4. Report promptly any intercurrent medical illness between now and the time of surgery, particularly any illness associated with a temperature of 100.5 degreesF or greater. 5. Listen closely to Dr. Wilks's preoperative and postoperative instructions and follow them carefully. Significant allergies in the antibiotic arena which would render many difficulties: He has allergy to penicillin, sulfa and a particularly severe allergy to doxycycline. He will have today laboratories for his upcoming surgery and also laboratories for his diabetes and lipids. STUDIES DONE TODAY for his surgery 1. Basic metabolic panel 2. Complete blood count 3. Urinalysis with micro 4. Oximetry Any preoperative defects found on the labs will be corrected prior to surgery. STUDIES DONE TODAY for his diabetes 1. Hemoglobin A1C 2. Urine microalbumin 3. Lipid panel 4. ALT 5. PSA CHIEF COMPLAINT/REASON FOR VISIT Preoperative history and physical. HISTORY OF PRESENT ILLNESS Mr. Costa is undergoing cataract surgery under the aegis of Dr. Wilks. CURRENT MEDICATIONS Post-visit Medication Reconciliation 1. Mometasone furoate 220 micrograms two puffs b.i.d. 2. Formoterol fumarate 12 microgram inhaler one puff every 12 hours 3. Lispro (Humalog) sliding scale before each meal 4. Lantus 35 units subcu in the morning 5. Metformin 1000 milligrams b.i.d. 6. Lovastatin 80 milligrams daily 7. Lopid 600 milligrams twice daily 8. Lisinopril 40 milligrams daily 9. Aspirin 81 milligrams daily 10. Multivitamin once a day ALLERGIES Penicillin, sulfa drugs and a particularly severe allergy to doxycycline. SYSTEMS REVIEW Specific presurgical review of systems: He is allergic to doxycycline, penicillin and sulfa. No history of bleeding complications or bleeding diatheses. No history of DVT or pulmonary embolism. He does have type 2 diabetes mellitus which is under reasonable control with a hemoglobin A1C of 7.6. No familial history of untoward reaction to anesthesia. No history of rheumatic fever. He does have hypertension which is well controlled. He has no angina, orthopnea, paroxysmal nocturnal dyspnea or palpitation. He does have pulmonary symptomatology[facility] but probably some degree of COPD. He is on formoterol and a steroid inhaler. He has no infective symptomatology. PAST MEDICAL/SURGICAL HISTORY 1. Benign prostatic hypertrophy 2. Diabetes mellitus type 2 3. Hypertension 4. Hyperlipidemia type II-B 5. Erectile dysfunction 6. Pulmonary symptomatology, diagnosis at the [facility] unclear, but probably some degree of COPD 7. Status post left cataract surgery at the [facility] Age: 65. Diphtheria/Tetanus: 01/14/2009. Influenza vaccine: 07/13/2010. Pneumovax: 11/15/2008. Hep A: 11/15/2008. Colon screening: Colonoscopy 07/03/2009. High risk (multiple polyps). Lipid screenin08/22/2010. PSA: 08/22/2010. Tobacco: No tobacco use. Handwashing done prior to patient contact. SOCIAL HISTORY He is . He doesn't smoke. He doesn't have anything but social alcohol. FAMILY HISTORY Family history noncontributory. VITAL SIGNS DATE/TIME 08/22/2010 HEIGHT 191 cm WEIGHT 108 kg BMI 30 kg/m TEMPERATURE 36.6 degreesC RESP DESC Oxygen saturation on room air: 97% PULSE 80 SYSTOLIC 126 DIASTOLIC 64 PHYSICAL EXAM AREA EXAM TEXT EYES Conjunctiva and lids normal. PERRLA. EOMs normal. Sclera nonicteric. ENT Tympanic membranes look okay bilaterally. Nares without erythema or congestion. Mouth without erythema or exudate, no leuko or erythroplakia. NECK Neck is supple. Carotid upstrokes +2 bilaterally. No carotid bruits. LYMPH NODES No cervical adenopathy. THYROID No thyromegaly. HEART CVP is normal at 7-8 cm of water or less; there is a normal systolic collapse of the jugular venous pulse; there is not a positive HJR. Heart tones are in sinus rhythm; S1, S2 normal, physiologic splitting of the second heart tone, no third or fourth sound, no significant murmur, no gallop. LUNGS He does have some rhonchi that change with cough and deep inspiration. Respiratory rate and effort are normal. ABDOMEN Soft and nondistended. No organomegaly, no focal mass or tenderness. EXTREMITIES No edema in the extremities. NEURO He is alert, oriented and grossly nonfocal. DMB/nmd Signed Kelly Phillips M.D. Internal Medicine Electronically Signed By:KELLY PHILLIPS MD On 08/22/2010 03:48 PM Source: [facility] MHSDOLBEYNONRADSYS Document Id: [id number] CARRIER OPERATIONS INSPECTOR documented in this encounter Nursing Notes Aleida Polanco L.PMauroNMauro - 08/27/2010 7:52 AM CST pre-op pre-op faxed to [place] Electronically Signed By:ALEIDA POLANCO LPN On 08/27/2010 07:53 am Source: [facility] elicit Document Id: [id number] CARRIER OPERATIONS INSPECTOR documented in this encounter Miscellaneous Notes Miscellaneous - Kelly Phillips M.D. - 08/27/2010 8:12 AM CST Reminder Msg Document Contains Addenda Addendum by ALEIDA POLANCO LPN on 28 August 2010 13:07:59 AIR CARRIER OPERATIONS INSPECTOR called wt results From: KELLY PHILLIPS MD To: ALEIDA POLANCO LPN Sent: 08/27/2010 08:12:24 AIR CARRIER OPERATIONS INSPECTOR ! Show up: 08/27/2010 08:12:00 AIR CARRIER OPERATIONS INSPECTOR Subject: Reminder Msg Actions: Notify patient of results Due Date/Time: 08/27/2010 08:12:00 AIR CARRIER OPERATIONS INSPECTOR Source: [facility] POWERCHART Document Id: [id number] Miscellaneous - Kelly Phillips M.D. - 08/22/2010 11:46 AM CST Reminder Msg Document Contains Addenda Addendum by ALEIDA POLANCO LPN on 28 August 2010 13:07:44 AIR CARRIER OPERATIONS INSPECTOR called with results patient will call back about starting new RX From: KELLY PHILLIPS MD To: ALEIDA POLANCO LPN Sent: 08/22/2010 11:46:06 AIR CARRIER OPERATIONS INSPECTOR ! Show up: 08/22/2010 11:44:00 AIR CARRIER OPERATIONS INSPECTOR Subject: Reminder Msg Actions: Notify patient of results Due Date/Time: 08/22/2010 11:44:00 AIR CARRIER OPERATIONS INSPECTOR Source: [facility] POWERCHART Document Id: [id number] Electronically signed by Conversion, [facility] Aircraft Log Clerk [id number] at 03/03/2017 4:38 AM CDT Miscellaneous - Kelly Phillips M.D. - 08/22/2010 10:43 AM CST Reminder Msg Document Contains Addenda Addendum by ALEIDA POLANCO LPN on 28 August 2010 13:06:55 AIR CARRIER OPERATIONS INSPECTOR called with results From: KELLY PHILLIPS MD To: ALEIDA POLANCO LPN Sent: 08/22/2010 10:43:19 AIR CARRIER OPERATIONS INSPECTOR ! Show up: 08/22/2010 10:42:00 AIR CARRIER OPERATIONS INSPECTOR Subject: Reminder Msg Actions: Notify patient of results Due Date/Time: 08/22/2010 10:42:00 AIR CARRIER OPERATIONS INSPECTOR Source: [facility] [employer]CHART Document Id: [id number] Electronically signed by Conversion, [facility] Aircraft Log Clerk [id number] at 03/03/2017 4:38 AM CDT Reji - Aleida Polanco L.P.NMauro - 08/22/2010 9:35 AM CST Ambulatory Vitals Height Weight Ambulatory Vitals Height Weight Entered On: 08/22/2010 9:35 AIR CARRIER OPERATIONS INSPECTOR Performed On: 08/22/2010 9:35 AIR CARRIER OPERATIONS INSPECTOR by ALEIDA POLANCO LPN Vitals/Ht/Wt Temperature Core: 36.6C(Converted to: 97.9DegF) SpO2: 97% Oxygen Therapy: Room air ALEIDA POLANCO LPN - 08/22/2010 9:35 AIR CARRIER OPERATIONS INSPECTOR Source: [facility] POWERCHART Document Id: [id number] AIR CARRIER OPERATIONS INSPECTOR!5 CARRIER OPERATIONS INSPECTOR Miscellaneous - Aleida Polanco L.P.N. - 08/22/2010 9:32 AM CST Adult Catalyst Operator Chief Intake/History Adult Catalyst Operator Chief Intake/History Entered On: 08/22/2010 9:34 AIR CARRIER OPERATIONS INSPECTOR Performed On: 08/22/2010 9:32 AIR CARRIER OPERATIONS INSPECTOR by ALEIDA POLANCO LPN Intake Chief Complaint: pre-op Peripheral Pulse Rate: 80/min Systolic Blood Pressure: 126mmHg Diastolic Blood Pressure: 64mmHg NIBP Mean: 85mmHg BP Location: Left upper extremity Heart Rhythm: Regular Height: 191.00cm(Converted to: 6ft 3in, 75.20in) Actual Weight: 108.000kg Actual Weight Conversion to Pounds: 237.600lb Weight Source: Standing scale Dosing Weight Clinic: 108.00kg Clinic BSA: 2.39 Body Mass Index: 30kg/m2 ALEIDA POLANCO LPN - 08/22/2010 9:32 AIR CARRIER OPERATIONS INSPECTOR Subjective Pain Symptoms: No ALEIDA POLANCO LPN - 08/22/2010 9:32 AIR CARRIER OPERATIONS INSPECTOR Dependent Habits Tobacco Use/Currently Using: No Alcohol Use: Yes ALEIDA POLANCO LPN - 08/22/2010 9:32 AIR CARRIER OPERATIONS INSPECTOR Caffeine Use Grid Caffeine Use: Current Type: Coffee Frequency: Daily ALEIDA POLANCO LPN - 08/22/2010 9:32 AIR CARRIER OPERATIONS INSPECTOR Recreational Drug Use Grid Drug Use: None ALEIDA POLANCO LPN - 08/22/2010 9:32 AIR CARRIER OPERATIONS INSPECTOR Allergies Latex Screening: No ALEIDA POLANCO LPN - 08/22/2010 9:32 AIR CARRIER OPERATIONS INSPECTOR Allergies (Active) penicillin Estimated Onset Date: Unspecified ; Created By: ALEIDA POLANCO LPN; Reaction Status:Active ; Category: Drug ; Substance: penicillin ; Type: Allergy ; Updated By: ALEIDA POLANCO LPN; Source: Paper Chart/Abstracting ; Reviewed Date: 08/22/2010 9:26 AIR CARRIER OPERATIONS INSPECTOR sulfa drugs Estimated Onset Date: Unspecified ; Created By: ALEIDA POLANCO LPN; Reaction Status: Active ; Category: Drug ; Substance: sulfa drugs ; Type: Allergy ; Updated By: ALEIDA POLANCO LPN; Source: Paper Chart/Abstracting ; Reviewed Date: 08/22/2010 9:26 AIR CARRIER OPERATIONS INSPECTOR Source: [facility] POWERCHART Document Id: [id number] AIR CARRIER OPERATIONS INSPECTOR!31 CARRIER OPERATIONS INSPECTOR documented in this encounter Plan of Treatment Not on filedocumented as of this encounter Visit Diagnoses Not on filedocumented in this encounter
--- OUTSIDE RECORDS SUMMARY | 2022-05-21 11:39 | XMS_ITS | Encounter Summary ---
:1945 Author Organization [facility] Address [address] [place] [address] Care Team Providers Name Role Phone Unavailable Primary Care Provider Unavailable Encounter Details Date Type Department Care Team Description 04/18/2014 Hospital Encounter HX [facility] Ewa Grier M.D. [address] [place], [place] [phone] (Wo rk) Social History [...] do you attend presybeterian or Never 2021 sikh services? Do you [...] Diagnosis Comme nts HEMOGLOBIN A1C, B Routine 04/18/2014 8:04 AM Resu lts for this CDT procedure are i n the results section. documented in this encounter Results (ABNORMAL) Hemoglobin A1c (04/18/2014 8:04 AM CDT) P athologist Signature Hemoglobin A1c, 7.8 (H) <=5.6 A1C POWERCHART B Specimen (Source) Anatomical Collection Method Collection Time Re ceived Time Location / / Volume Laterality Blood 04/18/2014 8:04 AM CDT Ewa Alejandro M.D. LAB BLOOD ADD-ON Performing Organization Address City/State/ZIP Code Phon e Number POWERCHART documented in this encounter Visit Diagnoses Not on filedocumented in this encounter
--- OUTSIDE RECORDS SUMMARY | 2022-05-21 11:39 | XMS_ITS | Encounter Summary ---
:1945 Author Organization [facility] Address [address] [place] [address] Care Team Providers Name Role Phone Unavailable Primary Care Provider Unavailable Encounter Details Date Type Department Care Team Description 04/18/2014 Hospital Encounter HX [facility] Piero Grier M.D. [address] [place], [place] [phone] (Wo rk) Social History [...] you attend oriental orthodox or Never 2021 yarsani services? Do you [...] Notes Miscellaneous - Piero Weiss M.D. - 04/21/2014 12:53 PM CDT Custom Result Letter 21 April 2014 JONNATHAN COSTA [id number] [facility] [id number] Dear JONNATHAN COSTA, Your A1c is stable. The cholesterol is back to where it needs to be with the LDL less than 100. Keepworking on low fat diet and reasonabale exercise. Good job. Result Name Current Result Previous Result Normal Range Cholesterol (mg/dL) 193 04/18/2014 (H) 222 10/13/2013 0 - 200 Trig (mg/dL) (H) 366 04/18/2014 (H) 351 10/13/2013 0 - 150 HDL (mg/dL) (L) 36.0 04/18/2014 (L) 39.0 10/13/2013 40.0 - 60.0 LDL Calculated (mg/dL) 84 04/18/2014 (H) 113 10/13/2013 0 - 100 Hgb A1c (% A1C) (H) 7.8 04/18/2014 (H) 7.7 10/13/2013 - <=5.6 Sincerely, PIERO MURILLO [address] [facility] [place] [address] Electronic Signature Electronically Signed By: PIERO MURILLO MD On: 21 April 2014 This document has images extracted. Source: [facility] VyyknCHART Document Id: [id number] Electronically signed by Conversion, [facility] Custodial Manager [id number] at 02/25/2017 1:43 PM CDT documented in this encounter Plan of Treatment Not on filedocumented as of this encounter Procedures Procedure Name Priority Date/Time Associated Diagnosis Comme nts LIPID PANEL, S Routine 04/18/2014 8:04 AM Results for this CDT procedure are i n the results section . documented in this encounter Results (ABNORMAL) Lipid Panel (04/18/2014 8:04 AM CDT) [facility] Method Time Signature Cholesterol, 193 0 - 200 POWERCHART Total MGDL HX HDL 36.0 (L) 40.0 - POWERCHART 60.0 MGDL Triglycerides 366 (H) 0 - 150 POWERCHART MGDL Calculated LDL 84 0 - 100 POWERCHART MGDL Specimen (Source) Anatomical Collection Method Collection Time Re ceived Time Location / / Volume Laterality Blood 04/18/2014 8:04 AM CDT Piero Alejandro M.D. LAB BLOOD ADD-ON Performing Organization Address City/State/ZIP Code Phon e Number POWERCHART documented in this encounter Visit Diagnoses Not on filedocumented in this encounter
--- OUTSIDE RECORDS SUMMARY | 2022-05-21 11:39 | XMS_ITS | Encounter Summary ---
:1945 Author Organization [facility] Address [address] [place] [address] Care Team Providers Name Role Phone Unavailable Primary Care Provider Unavailable Encounter Details Date Type Department Care Team Description 10/13/2013 Hospital Encounter HX [facility] LAB Ewa Grier M.D. [address] [place], [place] [phone] (Wo rk) Social History [...] do you attend uatsdin or Never 2021 restorationism services? Do you [...] Diagnosis Comme nts HEMOGLOBIN A1C, B Routine 10/13/2013 8:04 AM Resu lts for this DIGITAL ACCOUNT EXECUTIVE procedure are i n the results section. documented in this encounter Results (ABNORMAL) Hemoglobin A1c (10/13/2013 8:04 AM DIGITAL ACCOUNT EXECUTIVE) P athologist Signature Hemoglobin A1c, 7.7 (H) 4.0 - 6.0 POWERCHART B Specimen (Source) Anatomical Collection Method Collection Time Re ceived Time Location / / Volume Laterality Blood 10/13/2013 8:04 AM DIGITAL ACCOUNT EXECUTIVE Ewa Alejandro M.D. LAB BLOOD ADD-ON Performing Organization Address City/State/ZIP Code Phon e Number POWERCHART documented in this encounter Visit Diagnoses Not on filedocumented in this encounter
--- OUTSIDE RECORDS SUMMARY | 2022-05-21 11:39 | XMS_ITS | Encounter Summary ---
:1945 Author Organization [facility] Address [address] [place] [address] Care Team Providers Name Role Phone Unavailable Primary Care Provider Unavailable Encounter Details Date Type Department Care Team Description 08/17/2013 Hospital Encounter HX [facility] SURGEON Neal Major M.D. Social History Tobacco Use Types Packs/Day Years [...] do you attend adventism or Never 2021 oriental orthodox services? Do [...] Sign Reading Time Taken Comments Blood Pressure 136/76 08/17/2013 2:11 PM CHEST PAIN COORDINATOR Pulse - - Temperature - - Respiratory [...] documented as of this encounter Progress Notes Kyree Major M.D. - 08/17/2013 1:43 PM CST [id number] I spent about 15 minutes with this patient today. He is here for followup after colonoscopy. He had a polyp that was 1 cm over in the sigmoid colon. There was another one that was a diminutive polyp. These polyps turned out to be hyperplastic. This would put him possibly an intermediate and he has hadpolyps previously so we will re-scope him in 5 years. Kyree Major M.D./fernanda Electronically Signed By: KYREE MAJOR MD On: 09/02/2013 10:36 AM Source: [facility] MHSDOLBEYNONRADSYS Document Id: [id number] T PAIN COORDINATOR documented in this encounter Miscellaneous Notes Miscellaneous - Roxann Echols - 08/17/2013 3:41 PM CST Reminder Msg-Schedule Colonoscopy From: ROXANN ECHOLS (FB Surgery Nurse) To: FB Surgery Nurse; Sent: 08/17/2013 15:41:53 CHEST PAIN COORDINATOR Show up: 07/10/2018 15:41:00 CDT Subject: Reminder Msg-Schedule Colonoscopy Due Date/Time: 08/10/2018 15:41:00 CHEST PAIN COORDINATOR Please Remember to: Schedule colonoscopy; rescope in [address] Major intermediate risk; hx of polpys; last one 08-10-13 PATIENT: ( ) Call Patient ( ) Ask Patient to ( ) ( ) Call Relative ( ) Schedule Patient ( ) ( ) Call for Quantitative Developer ( ) Follow up on Results ( ) Other: PROVIDER: ( ) Call Physician ( ) Call Pharmacist ( ) Call Lab ( ) Other: Special Instructions: Comments: Source: [facility] POWERCHART Document Id: [id number] Electronically signed by Karen [facility] Sash Installer [id number] at 02/26/2017 5:00 PM CDT Miscellaneous - Kyree Major M.D. - 08/17/2013 2:44 PM CST Ambulatory Patient Summary [address] [address] Visit Information Name: JONNATHAN COSTA [facility] Number: [id number] Current Date: 08/17/2013 14:44:55 Physicians Attending Provider: KYREE MAJOR MD Primary Care Provider: PIERO MURILLO MD JONNATHAN COSTA has been given the [...] medications. Medication/Strength Dose Route Frequency Indications/Special Instructions/Comments/Notes fluticasone nasal (fluticasone 50 mcg/inh nasal spray) 2 spray(s) Nostrils(Both) once a day atorvastatin (atorvastatin 40 mg oral tablet) 40 mg Oral once a day (at bedtime) *polyethylene glycol 3350 with electrolytes (polyethylene glycol 3350 with electrolytes oral powder for reconstitution) See Instructions Mix 1 bottle (238 grams) with 64 oz of Gatorade in a pitcher. Drink an 8 oz glass of solution every 15 min until gone. *bisacodyl (bisacodyl 5 mg oral delayed release tablet) 10 mg Oral once Take between 12 noon and 4 pm with an 8 ounce glass of water. Take before you start the Miralax and Gatorade mixture. *magnesium citrate (magnesium citrate 1.745 g/30 mL oral liquid) 17.45 gm Oral once 4 hours before your procedure, drink the contents of this bottle with 10 ounces of water. doxazosin (doxazosin 4 mg oral tablet) 4 [...] meals multivitamin (multivitamin) Oral once a day lisinopril (lisinopril 40 mg oral tablet) 1 tab(s) Oral once a day gemfibrozil (gemfibrozil 600 mg oral tablet) 1 tab(s) Oral two times a day aspirin (aspirin 81 mg oral tablet) 1 [...] Time Location Reason Provider No Appointments found Attention: Contact your local Clinic if further appointment detail needed. Your Goals/Additional instructions: Source: [facility] POWERCHART Document Id: [id number] T PAIN COORDINATOR Miscellaneous - Kyree Major M.D. - 08/17/2013 2:44 PM CST [place] [address] Visit Information Name: JONNATHAN COSTA [facility] Number: [id number] Visit Date: 08/17/2013 14:44:55 Attending Provider: KYREE MAJOR MD Primary Care Provider: PIERO MURILLO MD JONNATHAN COSTA has been given the following list of medications: Your Medications It is important to take your medications as directed. Use a pill box or chart to help remind you to take your medications. Please let your doctor or nurse know if you have problems taking your medications. Medication/Strength Dose Route Frequency Indications/Special Instructions/Comments/Notes fluticasone nasal (fluticasone 50 mcg/inh nasal spray) 2 spray(s) Nostrils(Both) once a day atorvastatin (atorvastatin 40 mg oral tablet) 40 mg Oral once a day (at bedtime) *polyethylene glycol 3350 with electrolytes (polyethylene glycol 3350 with electrolytes oral powder for reconstitution) See Instructions Mix 1 bottle (238 grams) with 64 oz of Gatorade in a pitcher. Drink an 8 oz glass of solution every 15 min until gone. *bisacodyl (bisacodyl 5 mg oral delayed release tablet) 10 mg Oral once Take between 12 noon and 4 pm with an 8 ounce glass of water. Take before you start the Miralax and Gatorade mixture. *magnesium citrate (magnesium citrate 1.745 g/30 mL oral liquid) 17.45 gm Oral once 4 hours before your procedure, drink the contents of this bottle with 10 ounces of water. doxazosin (doxazosin 4 mg oral tablet) 4 [...] meals multivitamin (multivitamin) Oral once a day lisinopril (lisinopril 40 mg oral tablet) 1 tab(s) Oral once a day gemfibrozil (gemfibrozil 600 mg oral tablet) 1 tab(s) Oral two times a day aspirin (aspirin 81 mg oral tablet) 1 [...] your provider for clarification. Additional Information: Source: [facility] Tango Document Id: [id number] T PAIN COORDINATOR Miscellaneous - Roxann Echols - 08/17/2013 2:11 PM CST Adult Dopeman Intake/History Adult Dopeman Intake/History Entered On: 08/17/2013 14:12 CHEST PAIN COORDINATOR Performed On: 08/17/2013 14:11 CHEST PAIN COORDINATOR by ROXANN ECHOLS Intake Chief Complaint : colonoscopy results Temperature Core : 36.6 DegC(Converted to: 97.9 DegF) Systolic Blood Pressure : 136 mmHg Diastolic Blood Pressure : 76 mmHg NIBP Mean : 96 mmHg BP Location : Left upper extremity Blood Pressure Cuff Size : Regular ROXANN ECHOLS - 08/17/2013 14:11 CHEST PAIN COORDINATOR General Info Languages : Sierra Leonean ROXANN ECHOLS - 08/17/2013 14:11 CHEST PAIN COORDINATOR Subjective Pain Symptoms : No ROXANN ECHOLS - 08/17/2013 14:11 CHEST PAIN COORDINATOR Dependent Habits Tobacco Use/Currently Using : No Smoking Status : Former smoker ROXANN ECHOLS - 08/17/2013 14:11 CHEST PAIN COORDINATOR Tobacco Use Grid Last Use : former ROXANN ECHOLS - 08/17/2013 14:11 CHEST PAIN COORDINATOR Caffeine Use Grid Caffeine Use : Current Type : Coffee Frequency : Daily ROXANN ECHOLS - 08/17/2013 14:11 CHEST PAIN COORDINATOR Recreational Drug Use Grid Drug Use : None ROXANN ECHOLS - 08/17/2013 14:11 CHEST PAIN COORDINATOR Source: [facility] [employer] MediaCHART Document Id: [id number] CHEST PAIN COORDINATOR!27 T PAIN COORDINATOR documented in this encounter Plan of Treatment Not on filedocumented as of this encounter Visit Diagnoses Not on filedocumented in this encounter
--- OUTSIDE RECORDS SUMMARY | 2022-05-21 11:39 | XMS_ITS | Encounter Summary ---
:1945 Author Organization [facility] Address [address] [place] [address] Care Team Providers Name Role Phone Unavailable Primary Care Provider Unavailable Encounter Details Date Type Department Care Team Description 03/28/2003 Hospital Encounter HX [facility] Cooper Bateman M.D. [facility] [place], [place] [address] (Wo rk) Social History Tobacco Use Types [...]
--- OUTSIDE RECORDS SUMMARY | 2022-05-21 11:39 | XMS_ITS | Encounter Summary ---
:1945 Author Organization [facility] Address [address] [place] [address] Care Team Providers Name Role Phone Unavailable Primary Care Provider Unavailable Encounter Details Date Type Department Care Team Description 08/10/2013 Hospital Encounter HX NO MAPPING Kyree Hamm M. D. Social History Tobacco Use Types Packs/Day Years [...] do you attend islam or Never 2021 zoroastrian services? Do you [...]
--- OUTSIDE RECORDS SUMMARY | 2022-05-21 11:39 | XMS_ITS | Encounter Summary ---
:1945 Author Organization [facility] Address [address] [place] [address] Care Team Providers Name Role Phone Unavailable Primary Care Provider Unavailable Encounter Details Date Type Department Care Team Description 12/14/1993 - 12/19/1993 Hospital Encounter HX RST 5 JESS Social History Tobacco Use Types Packs/Day Years [...] you attend roman catholic or Never 2021 sabianist services? Do you [...]
--- OUTSIDE RECORDS SUMMARY | 2022-05-21 11:39 | XMS_ITS | Encounter Summary ---
:1945 Author Organization [facility] Address [address] [place] [address] Care Team Providers Name Role Phone Unavailable Primary Care Provider Unavailable Encounter Details Date Type Department Care Team Description 08/09/2013 Hospital Encounter HX [facility] Piero Moya i, M.D. [address] [place] [address] (Wo rk) Social History Tobacco [...] do you attend sabianist or Never 2021 hoahaoism services? Do you [...] Reading Time Taken Comments Blood Pressure 138/76 08/09/2013 10:17 AM [employer] Pulse 68 08/09/2013 10:15 AM [employer] Temperature - - Respiratory Rate 16 08/09/2013 10:15 AM [employer] Oxygen Saturation - - Inhaled Oxygen Concentration - - Weight 112 kg (246 lb 14.6 oz) 08/09/2013 10:15 AM [employer] Height 192 cm (6' 3.59) 08/09/2013 10:15 AM [employer] Body Mass Index 30.38 08/09/2013 10:15 AM [employer] documented in this encounter Medications at Time [...] encounter Progress Notes Piero Rojas M.D. - 08/09/2013 10:00 AM CST [id number] CHIEF COMPLAINT/ REASON FOR VISIT Discuss test results. HISTORY OF PRESENT ILLNESS Beth is a 68 year old male who presents to the clinic today to discuss test results. His lipid panel taken on 07/19 showed a total cholesterol level of 204, triglycerides level of 315, HDL of 36, and LDL of 105. His hemoglobin A1C was 8.1 and fasting glucose was 184. Urine albumin/creatinine ratio was 136. He is currently taking gemfibrozil and lovastatin to manage his cholesterol, as [facility]vastatin [facility]. Beth reports increased mucus in his throat. He reports a history of frequent pneumonia and worries about his lung function when he gets a cold. He is currently taking Symbicort. The patient denies anyadditional questions or concerns at this time. MEDICATIONS Post-visit Medication Reconciliation Reviewed and are as outlined in the EMR including 1. Lisinopril 60mg once daily dose increased today. 2. Fluticasone nasal spray both nostrils daily. 3. Atorvastatin 40mg once daily. 4. Gemfibrozil and lovastatin are discontinued. ALLERGIES Doxycycline. Penicillin. Sulfa drugs. SYSTEMS REVIEW See HPI. PAST MEDICAL/SURGICAL HISTORY 1. Benign prostatic hypertrophy 2. Diabetes mellitus type 2 3. Hypertension 4. Hyperlipidemia type II-B 5. Erectile dysfunction 6. Pulmonary symptomatology, [facility] the [facility] unclear, but probably some degree of COPD 7. Status post [facility] 8. Tonsillectomy PREVENTIVE SERVICES Tobacco use: None. VITAL SIGNS HEIGHT: 192 cm WEIGHT: 112 kg BMI: 30.38 kg/m2 TEMPERATURE: 36.4 DegC PULSE: 68 /min RESPIRATORY RATE: 16 /min BLOOD PRESSURE: 144 mmHg/80 mmHg, 138/76 mmHg PHYSICAL EXAMINATION GENERAL: Patient is alert and oriented times three, in no acute distress, good hygiene and is dressed appropriately. EXTREMITIES: Within normal limits. IMPRESSION/REPORT/PLAN 1. Hypercholesterolemia: Beth will follow up at the OR to change his prescriptions. He will discontinue gemfibrozil and lovastatin and switch to atorvastatin, if he is able to get coverage. 2. Hypertension: His dose of lisinopril will be increased to 60mg once daily. 3. Post nasal drip: Fluticasone nasal spray is prescribed today. 4. Diabetes: He will try to improve his A1C through diet. He will follow up in 2 months. 5. Follow up: The patient will contact the clinic with any new or worsening symptoms. This document serves as a record of services personally performed by Piero Roy MD. It was created on their behalf by Krista Sotelo, a trained medical language specialist. The creation of this record is based on the scribe's personal observations and the provider's statements to them. This document has been christie cked and approved by the attending provider. Piero Roy M.D./shelly Electronically Signed By: PIERO ROY MD On: 08/22/2013 11:04 PM Source: [facility] MHSDOLBEYNONRADSYS Document Id: [id number] [employer] documented in this encounter Miscellaneous Notes Miscellaneous - Lucila Crain - 12/28/2014 2:26 PM CDT *Medication Refill Msg Document Contains Addenda Addendum by FREYA REICH on 29 December 2014 07:16:25 CDT last message put in error. Addendum by FREYA REICH on 29 December 2014 07:15:47 CDT From: FREYA REICH ([facility] Medication Refill) To: PIERO ROJAS MD; Sent: 12/29/2014 07:15:47 CDT Subject: RE: *Medication Refill Msg I pulled it off fax machine and put on your desk for signature. Addendum by PIERO ROJAS MD on 28 December 2014 17:57:02 CDT From: PIERO ROJAS MD To: [facility]; Sent: 12/28/2014 17:57:02 CDT Subject: RE: *Medication Refill Msg ok done Addendum by FREYA REICH on 28 December 2014 14:29:50 CDT From: FREYA REICH ( [facility]ication Refill) To: PIERO ROJAS MD; Sent: 12/28/2014 14:29:50 CDT Subject: FW: *Medication Refill Msg From: LUCILA CRAIN LPN To: [facility] Ref[facility]; Sent: 12/28/2014 14:26:39 CDT Subject: *Medication Refill Msg Caller is: ( x ) Patient ( ) Mother ( ) Father ( ) Spouse ( ) Daughter ( ) Son ( ) Pharmacy ( ) Other: Provider: [facility] Name of Medications Needing Refill: Novalog insulin Last Refill Date: usually gets through OR, but hasn't heard from them and needs for trip he will be taking next week Additional Information: indicates takes 15 units three times daily with meals Last / Future Appointment:08/09/13/ last A1c 04/18/14-7.8-will be scheduling appointment with Dr. 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 - 03/29/2014 3:21 PM CDT Diabetic call Document Contains Addenda Addendum by LUCILA CRAIN LPN on 13 April 2014 15:03 CDT Able to contact pt. Transferred to scheduling. Addendum by NATALEE WARREN LPN on 07 April 2014 13:44:55 CDT Attmepted to contact patient . Voice mail is full. Not accepting calls at this time. Addendum by PIERO ROY MD on 06 April 2014 21:22:31 CDT From: PIERO ROY MD To: NATALEE WARREN LPN; Sent: 04/06/2014 21:22:31 CDT Subject: RE: Diabetic call ok to order From: NATALEE WARREN LPN To: PIERO ROY MD; Sent: 03/29/2014 15:21:51 CDT Subject: Diabetic call Patient is due for AIC. Last done 10/13/2013 and was 7.7 Due after 04/12/2014. Patient is due for LDL. Last done 10/13/2013 and was 113. Patient was last seen 08/09/2013. Please advise. Source: [facility] POWERCHART Document Id: [id number] Miscellaneous - Natalee Warren, L.P.N. - 12/28/2013 9:21 AM CDT Diabetic call Document Contains Addenda Addendum by NATALEE WARREN LPN on 10 January 2014 10:29:22 CDT noted Addendum by PIERO ROY MD on 06 January 2014 21:13:28 CDT From: PIERO ROY MD To: NATALEE WARREN LPN; Sent: 01/06/2014 21:13:28 CDT Subject: RE: Diabetic call yes OK to wait. I'll give him the 6 months. From: NATALEE WARREN LPN To: PIERO ROY MD; NATALEE WARREN LPN; Sent: 12/28/2013 09:21:13 CDT Subject: Diabetic call Patient is due for Lipid. Last done was 10/13/2013. and was 113. Your letter stated for patient to return in 6 months for fasting labs. Do you want to wait until March for all labs? Please advise. Source: [facility] [employer] Document Id: [id number] Miscellaneous - Vashti Mcintosh L.PMauroN. - 09/23/2013 10:46 AM CST Diabetic Call Document Contains Addenda Addendum by VASHTI MCINTOSH LPN on 28 September 2013 9:22 [employer] Start dates changed to 10/20/2013. Addendum by PIERO ROY MD on 26 September 2013 11:46:56 [employer] From: PIERO ROY MD To: VASHTI MCINTOSH LPN; Sent: 09/26/2013 11:46:56 [employer] Subject: RE: Diabetic Call ok From: VASHTI MCINTOSH LPN To: PIERO ROY MD; Sent: 09/23/2013 10:46:04 [employer] Subject: Diabetic Call Patient due for a A1C. Last done on 07/19/2013 and was 8.1. Due after 10/20/2013. Patient due for a lipid panel. Last done on 07/19/2013 and was 105. Due after 10/20/2013. Patient due for a AST. Last done on 07/19/2013 and was 31. Currently on statin. Orders are in with a start date of 10/08/2013. Need to change date to 10/20/2013. Please advise. Source: [facility] POWERCHART Document Id: [id number] [employer] Miscellaneous - Piero Rojas M.D. - 08/09/2013 11:24 AM [employer] Ambulatory Patient Summary [address] [address] Visit Information Name: BETH DURANOLAS [facility] Number: [id number] Current Date: 08/09/2013 11:24:00 Physicians Attending Provider: PIERO ROY MD Primary Care Provider: PIERO ROY MD RENEE BETH HILL has been given the following list of [...] mg Oral once a day (at bedtime) polyethylene glycol 3350 with electrolytes (polyethylene glycol 3350 with electrolytes oral powder for reconstitution) See Instructions Mix 1 bottle (238 grams) with 64 oz of Gatorade in a pitcher. Drink an 8 oz glass of solution every 15 min until gone. bisacodyl (bisacodyl 5 mg oral delayed release tablet) 10 mg Oral once Take between 12 noon and 4 pmwith an 8 ounce glass of water. Take before you start the Miralax and Gatorade mixture. magnesium citrate (magnesium citrate 1.745 g/30 mL oral [...] tablet) 1 tab(s) Oral once a day Attention: If you have any medications at [...] appointment detail needed. Your Goals/Additional instructions: Source: [facility] POWERCHART Document Id: [id number] [employer] Miscellaneous - Piero Rojas M.D. - 08/09/2013 11:23 AM [employer] Ambulatory Depart Summary [address] [address] Visit Information Name: BETH DURAN [facility] Number: [id number] Visit Date: 08/09/2013 11:23:59 Attending Provider: PIERO ROY MD Primary Care Provider: PIERO ROY MD BETH DURAN has been given the [...] mg Oral once a day (at bedtime) polyethylene glycol 3350 with electrolytes (polyethylene glycol 3350 with electrolytes oral powder for reconstitution) See Instructions Mix 1 bottle (238 grams) with 64 oz of Gatorade in a pitcher. Drink an 8 oz glass of solution every 15 min until gone. bisacodyl (bisacodyl 5 mg oral delayed release tablet) 10 mg Oral once Take between 12 noon and 4 pmwith an 8 ounce glass of water. Take before you start the Miralax and Gatorade mixture. magnesium citrate (magnesium citrate 1.745 g/30 mL oral [...] tablet) 1 tab(s) Oral once a day Attention: If you have any medications at home that are not on this list, DO NOT take them until youcontact your provider for clarification. Additional Information: Source: [facility] POWERCHART Document Id: [id number] [employer] Miscellaneous - Conversion, Historical Provider Ser - 08/09/2013 10:17 AM [employer] Ambulatory Vitals Height Weight Ambulatory Vitals Height Weight Entered On: 08/09/2013 10:17 [employer] Performed On: 08/09/2013 10:17 [employer] by JOSE BAGLEY LPN Vitals/Ht/Wt Systolic Blood Pressure : 138 mmHg Diastolic Blood Pressure : 76 mmHg NIBP Mean : 97 mmHg BP Location : Left upper extremity Blood Pressure Cuff Size : Regular JOSE BAGLYE LPN - 08/09/2013 10:17 [employer] Source: [facility] POWERCHART Document Id: [id number] [employer]!7 Miscellaneous - Conversion, Historical Provider Ser - 08/09/2013 10:15 AM [employer] Adult Water Attendant Intake/History Document Has Been Updated Adult Water Attendant Intake/History Entered On: 08/09/2013 10:17 [employer] Performed On: 08/09/2013 10:15 [employer] by JOSE BAGLEY LPN Intake Chief Complaint : recheck after tests Temperature Core : 36.4 DegC(Converted to: 97.5 DegF) (LOW) Peripheral Pulse Rate : 68 /min Respiratory Rate : 16 /min Systolic Blood Pressure : 144 mmHg (HI) Diastolic Blood Pressure : 80 mmHg NIBP Mean : 101 mmHg BP Location : Left upper extremity Blood Pressure Cuff Size : Regular Height : 192 cm(Converted to: 6 ft 4 inch(es), 75.59 inch(es)) Actual Weight : 112 kg(Converted to: 246 lb 15 oz) Dosing Weight Clinic : 112 kg Clinic BSA : 2.44 Body Mass Index : 30.38 kg/m2 JOSE BAGLEY [facility] - 08/09/2013 10:15 [employer] General Info Information Given By : Patient Languages : Barbadian JOSE BAGLEY [facility] - 08/09/2013 10:15 [employer] Subjective Pain Symptoms : No JOSE BAGLEY [facility] - 08/09/2013 10:15 [employer] Dependent Habits Tobacco Use/Currently Using : No Tobacco Use/Last 12 months : No Smoking Status : Former smoker JOSE BAGLEY [facility] - 08/09/2013 10:15 [employer] Tobacco Use Grid Last Use : former JOSE BAGLEY [facility] - 08/09/2013 10:15 [employer] Caffeine Use Grid Caffeine Use : Current Type : Coffee Frequency : Daily JOSE BAGLEY [facility] - 08/09/2013 10:15 [employer] Recreational Drug Use Grid Drug Use : None JOSE BAGLEY [facility] - 08/09/2013 10:15 [employer] Allergy (As Of: 08/09/2013 10:17:37 [employer]) Allergies (Active) doxycycline Estimated Onset Date: Unspecified ; Reactions: severe rash ; Created By: HILARY PASCUAL MD; Reaction Status: Active ; Category: Drug ; Substance: doxycycline ; Type: Allergy ; Updated By: KELLY PASCUAL MD; Reviewed Date: 08/09/2013 10:13 [employer] penicillin Estimated Onset Date: Unspecified ; Created By: ALEIDA HEAD LPN; Reaction Status:Active ; Category: Drug ; Substance: penicillin ; Type: Allergy ; Updated By: ALEIDA HEAD LPN; Source: Paper Chart/Abstracting ; Reviewed Date: 08/09/2013 10:13 [employer] sulfa drugs Estimated Onset Date: Unspecified ; Created By: ALEIDA HEAD LPN; Reaction Status: Active ; Category: Drug ; Substance: sulfa drugs ; Type: Allergy ; Updated By: ALEIDA HEAD LPN; Source: Paper Chart/Abstracting ; Reviewed Date: 08/09/2013 10:13 [employer] Source: [facility] POWERCHART Document Id: [id number] [employer]!36 documented in this encounter Plan of Treatment Not on filedocumented as of this encounter Visit Diagnoses Not on filedocumented in this encounter
--- OUTSIDE RECORDS SUMMARY | 2022-05-21 11:40 | XMS_ITS | Encounter Summary ---
:1945 Author Organization [facility] [facility] Address [address] [address] Phone Care Team Providers Name Role Phone Unavailable Primary Care Provider Unavailable Encounter Details Date Type Department Care Team Description 03/09/2019 Travel Social History Tobacco Use Types Packs/Day Years Used Date Never Assessed Sex Assigned at Date Recorded Not on file Job Start Date Occupation Industry Not on file Not on file Not on file documented as of this encounter Plan of Treatment Not on filedocumented as of this encounter Visit Diagnoses Not on filedocumented in this encounter
--- OUTSIDE RECORDS SUMMARY | 2022-05-21 11:40 | XMS_ITS | Encounter Summary ---
:1945 Author Organization [employer] Address [address] [address] Phone Care Team Providers Name Role Phone Unavailable Primary Care Provider Unavailable Reason for Visit Reason Comments Fall Encounter Details Date Type Department Care Team Description 03/09/[address] [facility] cause of URGENT CARE MD [place] morbidity or mortality [address] (Primary Dx) [place] [id number] [place] [phone] [id number] Social History Tobacco Use Types Packs/Day Years Used Date Never Assessed Sex Assigned at Date Recorded Not on file Job Start Date Occupation Industry Not on file Not on file Not on file documented as of this encounter Progress Notes Wilda Kelly LPN - 03/09/2019 6:40 PM CDT Patient presents to urgent care with . States he fell off a boat while in the garage. He has a laceration to his face, right knee, and right elbow. He also has a large bruise on his right side of chest. Patient is complaining of a large amount of pain to the right side of chest. states patient is on a blood thinner. Per Dr Gentile typewriters functional tester advised patient to present to the ER. Patient was given gauze and cleaned up by typewriters functional tester before leaving urgent care. documented in this encounter Plan of Treatment Not on filedocumented as of this encounter Visit Diagnoses Diagnosis Unknown cause of morbidity or mortality - Primary Other unknown and unspecified cause of m orbidity or mortality documented in this encounter
--- OUTSIDE RECORDS SUMMARY | 2022-05-21 11:40 | XMS_ITS | Encounter Summary ---
:1945 Author Organization [email or web address] Address [address] [address] Phone Care Team Providers Name Role Phone Unavailable Primary Care Provider Unavailable Reason for Visit Reason Comments Fall Head Laceration Encounter Details Date Type Department Care Team Description 03/09/2019 Emergency [facility], Rusty Nguyen MD Closed head injury, initial encounter (P rimary Dx); Center Emergency [address] Facial laceration, initial encounter; Department [facility] Abrasion of right knee, initial encounte r; [address] [place] [address] Chest wall contusion, right, initial enc [place]unt [place] [address] [phone] Social History Tobacco Use Types Packs/Day Years Used Date Never Assessed Sex Assigned at Date Recorded Not on file Job Start Date Occupation Industry Not on file Not on file Not on file documented as of this encounter Last Filed Vital Signs Vital Sign Reading Time Taken Comments Blood Pressure 174/85 03/09/2019 9:00 PM CDT Pulse 62 03/09/2019 7:25 PM CDT Temperature 36.8 ??C (98.2 ??F) 03/09/2019 7:25 PM CDT Respiratory Rate 18 03/09/2019 7:25 PM CDT Oxygen Saturation 98% 03/09/2019 9:00 PM CDT Inhaled Oxygen Concentration - - Weight 104.3 kg (230 lb) 03/09/2019 7:25 PM CDT Height 188 cm (6' 2) 03/09/2019 7:25 PM CDT Body Mass Index 29.53 03/09/2019 7:25 PM CDT documented in this encounter Functional Status Functional Status Response Date of Assessment Patient's Vision Adequate to Safely Complete Daily Yes 03/09/2019 Activities Patient's Memory Adequate to Safely Complete Daily Yes 03/09/2019 Activities Cognitive Status Response Date of Assessment Patient's Judgment Adequate to Safely Complete Daily Yes 03/09/2019 Activities documented as of this encounter Discharge Instructions Discharge InstructionsRusty Palafox MD - 03/09/2019 9:06 PM CDT Wash the facial laceration each day and reapply bacitracin. Do not apply bacitracin to the abrasion,as it will dissolve the skin glue. Take Tylenol as needed for discomfort. Cold packs as needed. Suture removal in 7 to 10 days. AttachmentsThe following attachments cannot be sent through Care Everywhere. Chest Wall Contusion ([place])Head Injury (Adult) ([place])Laceration, Face: Stitches or Tape ([place])Laceration, Extremity: Skin Glue ([place])documented in this encounter Medications at Time of Discharge Medication Sig Dispensed Refills Start Date End Date clopidogrel (Plavix) 75 MG Take 1 Tablet by 0 09/2015 tablet mouth every afternoon. escitalopram (Lexapro) 10 Take 10 mg by mouth 0 0 04/28/2018 MG tablet every afternoon. documented as of this encounter Discharge Disposition Disposition Code Departure Means Destination Home and/or Self Skilled Nursing documented in this encounter ED Notes Gurmeet Rajan RN - 03/09/2019 9:13 PM CDT Patient given discharge instructions. They verbalized understanding and all questions were answered. Gurmeet Rajan RN - 03/09/2019 7:44 PM CDT Patient back from radiology. Rusty Palafox MD - 03/09/2019 7:36 PM CDT Images from the original note were not included. Patient: Jonnathan Costa Means of Arrival: Walking Chief Complaint: Fall and Head Laceration History of Present Illness: 73-year-old male tripped over a duffel bag in his garage just prior to arrival here, falling forwardand striking his forehead on a boat propeller, lacerating his forehead. Also sustained a contusion to his right upper chest wall and abrasion to his right knee. Denies loss of consciousness, headache, neck pain, back pain, shortness of breath, abdominal pain, hip pain, focal neurologic complaints, or injuries elsewhere. He is anticoagulated on Coumadin. Tetanus status is up-to-date. Review of Systems: Review of Systems All other systems reviewed and are negative. Allergies Allergen Reactions ??? Bactrim [Sulfamethoxazole W-Trimethoprim] Other ??? Penicillins Hives ??? Sulfa Drugs Other Prior to Admission Medication List Med List Status: Update pending by Nurse Set By: Maday Bryan RN at 03/09/2019 7:27 PM pancrelipase, [id number], ([id number]) [id number] UNIT Capsule Delayed Release Particles Take 1 Cap by mouth before large meals Past Medical History: History reviewed. No pertinent past medical history. Past Surgical History: History reviewed. No pertinent surgical history. Family History: No family history on file. Social History: Social History Tobacco Use ??? Smoking status: Not on file Substance Use Topics ??? Alcohol use: Not on file ??? Drug use: Not on file Social History Substance and Sexual Activity Drug Use Not on file Exam: Initial Vitals Most Recent Vitals Temp: 98.2 ??F (36.8 ??C) (03/09/191924) Temp: 98.2 ??F (36.8 ??C) (03/09/191924) Pulse: 62 (03/09/191924) Pulse: 62 (03/09/191924) Resp: 18 (03/09/191924) Resp: 18 (03/09/191924) BP: (!) 188/86 (03/09/191922) BP: (!) 195/96 (03/09/191999) SpO2: 98 % (03/09/191922) SpO2: 97 % (03/09/191999) Physical Exam: Physical Exam Alert and resting quietly. Oriented, interacts appropriately. Vital signs as above. Color is good, skin is warm and dry. Head reveals a 3 cm laceration over the left forehead. No foreign body seen and no bony depression or step-off. No injuries over the remainder of the scalp or face. Pupils are equal, midrange, reactive. Mouth is moist, pharynx is clear. Neck is supple and nontender to palpation. Lungs are clear with good breath sounds bilaterally. Heart shows regular rate and rhythm with no murmur. Chest wall shows a large hematoma over the right upper anterior chest wall. No tenderness over the clavicles, shoulders, elbows, wrists, hips, or ankles, and has full range of motion of these joints without discomfort. Has large superficial abrasion over the extensor surface of the right knee and anterolateral aspect of the proximal lower leg, but has full range of motion of the knees bilaterally with no effusions. Muscle strength is 5/5 in all muscle groups. Normal distal sensation and capillary refill time. Lab Results: No results found for this visit on 03/09/19. Imaging Results: Imaging Results XR KNEE RIGHT 3 VIEWS (In process) XR CHEST 2 VIEWS (In process) CT HEAD WO IV CONTRAST (Final result) Result time 03/09/19 19:48:04 Final result by Rodney Ratliff MD (03/09/19 19:48:04) Narrative: This document is currently in Final Status Exam CT HEAD WO IV CONTRAST HISTORY: trauma; COMPARISON: None TECHNIQUE: Noncontrast enhanced axial cuts were obtained of the brain. Auto dosage reduction and iterative reconstruction techniques employed. FINDINGS:There is no cerebral or subdural hemorrhage. There is no mass effect or edema. The ventricles and CSF spaces are appropriate for age. No space occupying lesions are demonstrated. The orbital structures are unremarkable. There is a scalp contusion in the left frontal location. There are air-fluid levels within maxillary sinuses bilaterally. There is ethmoid air cell consolidation. IMPRESSION: 1. No acute findings of brain. 2. Left frontal scalp contusion. 3. Inflammatory sinus disease. Electronically Signed: Rodney Ratliff MD 03/09/2019 7:48 PM Emergency Department Course: With patient being anticoagulated, TBI protocol was initiated with CT evaluation as above. X-rays ofthe right knee show no fracture by my interpretation. X-rays of the chest show no definite rib fracture, pneumothorax, or other acute pathology by my interpretation. Offered analgesia, but he declined. Laceration repair as below. Procedures: Procedures Facial laceration was anesthetized with local infiltration with 1% lidocaine with epinephrine. Woundwas then cleaned and closed with a single layer closure of 6-0 Ethilon sutures. Right knee abrasion was anesthetized with topical application of viscous lidocaine. Wound was then cleaned and closed with Dermabond. Assessment: Closed head injury, initial encounter (primary encounter diagnosis) Facial laceration, initial encounter Abrasion of right knee, initial encounter Chest wall contusion, right, initial encounter Plan: Discharge Prescriptions None MDM Disposition: ED Disposition ED Disposition Comment Discharge [facility] thanks you for allowing us to assist you with your healthcare needs. This document contains patient education materials and information regarding your injury/illness. *If you need copies of your x-rays for a f ollow up appointment please call [phone] to arrange for sweet pickled fruit maker. If you had an IV in place during your stay, please continue to monitor the site for the next 48 hours. Report any redness, swelling, drainage, or fever to your primary care phys ician. Rusty Palafox MD 03/09/192104 Gurmeet Rajan RN - 03/09/2019 7:33 PM CDT Patient comes to the ED with his after he slipped and fell. He has a laceration on his forehead, his knee and a large bruised hematoma on his right upper chest. He denies LOC, SOB or neck pain. Hehas pain in the right anterior chest and his right knee. Maday Bryan RN - 03/09/2019 7:21 PM CDT Tripped, hit his head on boat propeller. Unknown LOC documented in this encounter Plan of Treatment Not on filedocumented as of this encounter Procedures Procedure Name Priority Date/Time Associated Diagnosis Comme nts XR KNEE RIGHT 3 STAT 03/09/2019 7:53 PM Closed head injury, Results for this VIEWS CDT initial encounter procedure are in the results section. XR CHEST 2 VIEWS STAT 03/09/2019 7:49 PM Closed head injury , Results for this CDT initial encounter procedure are in the results section. CT HEAD WO IV STAT 03/09/2019 7:44 PM Results for this CONTRAST CDT procedure are i n the results section. documented in this encounter Results XR KNEE RIGHT 3 VIEWS (03/09/2019 7:53 PM CDT) Anatomical Region Laterality Modality Knee Radiographic Imaging Specimen (Source) Anatomical Collection Method Collection Time Re ceived Time Location / / Volume Laterality 03/09/2019 7:53 PM CDT Narrative 03/10/2019 6:16 AM CDT This document is currently in Final Status Exam XR KNEE RIGHT 3 VIEWS HISTORY: injury; Findings: Hypertrophic change undersurfa ce of patella. No evidence for fracture. Electronically Signed: Dhiraj Ospina MD 03/10/2019 6:16 AM Procedure Note Dhiraj Ospina MD - 03/10/2019Format ting of this note might be different from the original. This document is currently in Final Stat us Exam XR KNEE RIGHT 3 VIEWS HISTORY: injury; Findings: Hypertrophic change undersurfa ce of patella. No evidence for fracture. Electronically Signed: Dhiraj Ospina MD 03/10/2019 6:16 AM Rusty Palafox MD [facility]NOST[facility] ORDERA BLES XR CHEST 2 VIEWS (03/09/2019 7:49 PM CDT) Anatomical Region Laterality Modality Chest Radiographic Imaging Specimen (Source) Anatomical Collection Method Collection Time Re ceived Time Location / / Volume Laterality 03/09/2019 7:49 PM CDT Narrative 03/10/2019 6:06 AM CDT This document is currently in Final Status Exam XR CHEST 2 VIEWS HISTORY: Right chest injury; FINDINGS: Heart size upper limits of nor mal. No pneumothorax. No focal consolidation. Electronically Signed: Dhiraj Ospina MD 03/10/2019 6:06 AM Procedure Note Dhiraj Ospina MD - 03/10/2019Format ting of this note might be different from the original. This document is currently in Final Stat us Exam XR CHEST 2 VIEWS HISTORY: Right chest injury; FINDINGS: Heart size upper limits of nor mal. No pneumothorax. No focal consolidation. Electronically Signed: Dhiraj Ospina MD 03/10/2019 6:06 AM Rusty Palafox MD [facility] ORDERA BLES CT HEAD WO IV CONTRAST (03/09/2019 7:44 PM CDT) Anatomical Region Laterality Modality Head Computed Tomography Specimen (Source) Anatomical Collection Method Collection Time Re ceived Time Location / / Volume Laterality 03/09/2019 7:44 PM CDT Narrative 03/09/2019 7:48 PM CDT This document is currently in Final Status Exam CT HEAD WO IV CONTRAST HISTORY: trauma; COMPARISON: None TECHNIQUE: Noncontrast enhanced axial cu ts were obtained of the brain. Auto dosage reduction and iterative reconstruction techniques employed. FINDINGS:There is no cerebral or subdura l hemorrhage. There is no mass effect or edema. The ventricles and CSF spaces are appropriate for age. No space occupying lesions are demonstrated. The orbital st ructures are unremarkable. There is a sc alp contusion in the left frontal location. There are air-fluid levels within maxillary sinuses bilaterally. There is ethmoid air cell consolidation. IMPRESSION: 1. No acute findings of brain. 2. Left frontal scalp contusion. 3. Inflammatory sinus disease. Electronically Signed: Rodney Ratliff MD 03/09/2019 7:48 PM Procedure Note Rodney Ratliff MD - 03/09/2019 This document is currently in Final Stat us Exam CT HEAD WO IV CONTRAST HISTORY: trauma; COMPARISON: None TECHNIQUE: Noncontrast enhanced axial cu ts were obtained of the brain. Auto dosage reduction and iterative reconstruction techniques employed. FINDINGS:There is no cerebral or subdura l hemorrhage. There is no mass effect or edema. The ventricles and CSF spaces are appropriate for age. No space occupying lesions are demonstrated. The orbital structures are unremarkable. There is a scalp contusion in the left frontal location. There are air-fluid levels within maxillary sinuses bilaterally. There is ethmoid air cell consolidation. IMPRESSION: 1. No acute findings of brain. 2. Left frontal scalp contusion. 3. Inflammatory sinus disease. Electronically Signed: Rodney Ratliff MD 03/09/2019 7:48 PM Rusty Palafox MD EC CT ORDERABLES documented in this encounter Visit Diagnoses Diagnosis Closed head injury, initial encounter - Primary Facial laceration, initial encounter Abrasion of right knee, initial encounte r Chest wall contusion, right, initial enc ounter documented in this encounter Administered Medications Inactive Administered Medications Medication Order MAR Action Action Date Dose Rate Site lidocaine viscous (XYLOCAINE) 2 % Given 03/09/2019 8:02 PM CDT 2 0 mL solution 20 mL 20 mL, Topical, ONCE, 1 dose, On Tu03/09/19 at 1940 documented in this encounter Active and Recently Administered Medications Times are shown in CDT. Scheduled Medication Order 03/07/2019 03/08/2019 03/09/2019 lidocaine viscous (XYLOCAINE) 2 % solution 20 mL (COMPLETED) 2001 (Given - Provider: Gurmeet Rajan RN) 20 mL, Topical, ONCE, 1 dose, Fri03/09/19 at 1940 documented in this encounter Orders Medications Ordered That Might Not Have Count Last Ord ered Date First Ordered Date Been Administered lidocaine viscous (XYLOCAINE) 2 % solution 1 03/09 20 mL documented in this encounter
--- OUTSIDE RECORDS SUMMARY | 2022-05-21 11:40 | XMS_ITS | Clinical Summary ---
:1945 Author Organization [employer] Address [address] [address] Phone Care Team Providers Name Role Phone Unavailable Primary Care Provider Unavailable Allergies Active Allergy Reactions Severity Noted Date Comments Amlodipine Dizziness Medium 12/24/2021 Sulfamethoxazole W-Trimethoprim Other 9 Doxycycline RASH Medium 12/24/2021 Penicillins Hives 03/09/2019 Sulfa Drugs Other 03/09/2019 Medications Medication Sig Dispensed Refills Start Date End Date Status albuterol HFA (Proair INHALE 2 PUFFS BY 0 Active HFA, Ventolin HFA) INHALATION EVERY 6 108 (90 Base) MCG/ACT HOURS NEEDED FOR inhalation aerosol SHORTNESS OF BREATHSHAKE WELL (FOR IMMEDIATE RELIEF). atorvaSTATin Take 80 mg by mouth 0 Active (Lipitor) 80 MG every evening. tablet budesonide-formoterol Inhale 2 Puffs into 0 06/30/20 20 Active (Symbicort) 160-4.5 the lungs two times MCG/ACT aerosol a day. inhaler vitamin D3, Take 1,000 Units by 0 Active cholecalciferol, 25 mouth every mcg (1000 units) afternoon. tablet clopidogrel (Plavix) Take 1 Tablet by 0 04/29/2016 Active 75 MG tablet mouth every afternoon. escitalopram Take 10 mg by mouth 0 04/28/2018 Active (Lexapro) 10 MG every afternoon. tablet insulin aspart Inject 10 units 0 02/22/2021 Active (NovoLOG) 100 UNIT/ML under the skin pen injection three times a day before meals. Also use sliding scale before meals and bedtime: 1 unit if BG between 250-300, inject 2 units if BG between 301-350, inject 3 units if between 351-400, inject 4 units if BG between 400-450, don't take more than 4 units at bedtime for diabetes. insulin glargine Inject 34 Units 0 02/22/2021 Active (Lantus) 100 UNIT/ML under the skin at vial injection bedtime. levothyroxine Take 100 mcg by 0 01/30/2021 Active (Synthroid) 100 MCG mouth one time a tablet day. metoprolol succinate Take 25 mg by mouth 0 Active (Toprol-XL) 25 MG 24 at bedtime. hour extended-release tablet albuterol (Proventil, Take 0.5 mL by 360 mL 3 02/26/2021 Active Ventolin) (5 MG/ML) nebulization every 0.5% nebulizer six hours as needed solution for Wheezing or Shortness of Breath. Dilute with 2.5 mL saline before nebulizing. empagliflozin Take 25 mg by mouth 0 Active (Jardiance) 25 MG one time a day. Tablet Semaglutide, 1 Inject 0.25 mg 0 Active MG/DOSE, (Ozempic, 1 under the skin one MG/DOSE,) 2 MG/1.5ML time a week. Solution Pen-injector Semaglutide, 1 Inject 0.5 mg under 0 Active MG/DOSE, (Ozempic, 1 the skin one time a MG/DOSE,) 2 MG/1.5ML week. Solution Pen-injector Semaglutide, 1 Inject 1 mg under 0 Active MG/DOSE, (Ozempic, 1 the skin one time a MG/DOSE,) 2 MG/1.5ML week. Solution Pen-injector indomethacin Take 25 mg by mouth 0 Active (Indocin) 25 MG three times a day capsule as needed for Other (gout exacerbation). Take with food or milk. losartan (Cozaar) 50 Take 50 mg by mouth 0 Active MG tablet every morning. Torsemide 40 MG Take 40 mg by mouth 0 Active Tablet every morning. traZODone (Desyrel) Take 50 mg by mouth 0 Active 50 MG tablet at bedtime. aspirin 325 MG tablet Take 1 Tablet by 30 Tablet 3 12/25/2021 Active mouth one time a day. Active Problems Problem Noted Date Elevated troponin level 12/24/2021 Embolic stroke 12/24/2021 Chronic heart failure with preserved ejection fraction (HFpEF) 12/24/2021 Acute on chronic heart failure with preserved ejection fraction (HFpEF) 02/25/2021 Stage 3b chronic kidney disease 02/25/2021 Moderate asthma with acute exacerbation 02/25/2021 Acute respiratory failure with hypoxia 02/25/2021 Essential hypertension 02/25/2021 Insulin dependent type 2 diabetes mellitus 02/25/2021 Diabetic neuropathy 02/25/2021 Type 2 diabetes mellitus with hyperglycemia, with long -term current use of 02/25/2021 insulin Surgical History Surgery Date Site/Laterality Comments CATARACT REMOVAL Left TONSILLECTOMY LASER ENUCLEATION PROSTATE 08/28/2016 CYSTOSCOPY 05/22/2016 removal of tumor VASECTOMY CYSTOTOMY,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 Medical History Medical History Date Comments Type 2 diabetes mellitus (HCC) Chronic systolic CHF (congestive heart failure) (HCC) Hypertension Dyslipidemia Gout Asthma Stroke (HCC) on plavix CKD (chronic kidney disease) Bladder cancer (HCC) Hypothyroidism Family History Medical History Relation Comments Asthma Brother Depression Brother Cardiovascular Disease Father of [place] Depression Father Hypertension Mother Asthma Sister Asthma Son Relation Status Comments Brother Alive Father Mother Sister Alive Son Alive Social History Tobacco Use Types Packs/Day Years Used Date Former Smoker Cigarettes Quit: 08/28/19 74 Smokeless Tobacco: Never Used Alcohol Use Standard Drinks/Week Comments Yes 0 (1 standard drink = 0.6 oz pure alcoho l) rare Alcohol Habits Answer Date Recorded How often do you have a drink containing alcohol? Never 02/25/2021 How many drinks containing alcohol do you have on a typical Not asked day when you are drinking? How often do you have six or more drinks on one occasion? No t asked Comment: rare 12/24/2021 Sex Assigned at Date Recorded Not on file Job Start Date Occupation Industry Not on file Not on file Not on file Obstetrics History Last Filed Vital Signs Vital Sign Reading Time Taken Comments Blood Pressure 157/72 12/24/2021 4:46 PM CDT Pulse 67 12/24/2021 4:46 PM CDT Temperature 36.5 ??C (97.7 ??F) 12/24/2021 4:46 PM CDT Respiratory Rate 18 12/24/2021 4:46 PM CDT Oxygen Saturation 97% 12/24/2021 4:46 PM CDT Inhaled Oxygen Concentration - - Weight 99.2 kg (218 lb 11.1 oz) 12/24/2021 2:03 AM CDT Height 188 cm (6' 2) 12/24/2021 2:03 AM CDT Body Mass Index 28.08 12/24/2021 2:03 AM CDT Plan of Treatment Health Maintenance Due Date Last Done Comments MEDICARE AWV 1945 DIABETIC EYE EXAM 1961 PERTUSSIS (Standing Order) 1962 TETANUS (Standing Order) 1962 Shingrix (Zoster recombinant) 1993 vaccine (Standing Order) (1 of 2) Pneumococcal Vaccine: 65+ yrs 2008 (Standing Order) (1 - PCV) COVID-19 Vaccine (3 - Booster for 04/14/2021 11/15/2020, Moderna series) Influenza Vaccine Seasonal 05/30/2022 (Standing Order) (#1) DIABETES HGB A1C Q6 MONTHS 06/26/2022 12/24/2021, 2, (Standing Order) 07/30/2021, Additional history exists DIABETES MICROALBUMIN Q1 YEAR 09/18/2022 10/18/2021, 2020, (Standing Order) 04/18/2021, Additional history exists DIABETES SERUM CREATININE Q1 YEAR 12/23/2022 12/23/2021, , (Standing Order) 07/30/2021, Additional history exists Insurance Payer Benefit Plan Subscriber ID Effective Phone Address Typ e / Group Dates [facility] [id number] 2020-Pre [phone] ATTN Medicar e MEDICARE sent 1493 ??CLAIMS Replacement PLANS [address] [place] [address] [facility] [id number] 2021-Pre [phone] [facility] CARE-[employer] sent [id number] [employer] [address] [place] [address] Jonnathan Costa Other Self 1945 [phone] [id number]) [place] [address] Advance Directives For more information, please contact: [phone] Latest Code Status on File Code Status Date Activated Date Inactivated Comments Full Code 12/24/2021 2:27 AM 12/24/2021 10:02 PM Full Code 02/25/2021 7:21 PM 02/26/2021 7:54 PM
--- OUTSIDE RECORDS SUMMARY | 2022-05-21 11:40 | XMS_ITS | Encounter Summary ---
:1945 Author Organization [employer] Address [address] [address] Phone Care Team Providers Name Role Phone Unavailable Primary Care Provider Unavailable Reason for Visit Reason Comments Difficulty Breathing Auth/Cert Specialty Diagnoses / Procedures Referred By Contact Refer red To Contact Diagnoses Acute left-sided CHF (congestive heart failure) (HCC) [facility] [address] [place] [address] [place] [address] Referral ID Status Reason Start Date Expiration Date Visits Requ ested Visits Authorized [id number] 1 1 Encounter Details Date Type Department Care Team Description 02/25/2021 - Hospital Encounter [facility], Gavino Cee MD [address] [place] [address] [phone] Acute on chronic congestive heart failur e, unspecified heart failure type (HCC) (Primary Dx); 02/26/2021 Center Jill Gupta MD [address] [place] [address] [phone] Moderate persistent asthma with acute ex acerbation [address] [place] [address] [phone] Social History Tobacco Use Types Packs/Day Years Used Date Former Smoker Smokeless Tobacco: Never Used Alcohol Use Standard Drinks/Week Comments Never 0 (1 standard drink = 0.6 oz pure alcoho l) Alcohol Habits Answer Date Recorded How often do you have a drink containing alcohol? Never 02/25/2021 How many drinks containing alcohol do you have on a typical Not asked day when you are drinking? How often do you have six or more drinks on one occasion? No t asked Comment: Not asked Sex Assigned at Date Recorded Not on file Job Start Date Occupation Industry Not on file Not on file Not on file COVID-19 Exposure Response Date Recorded In the last month, have you been in contact with No / Unsure 02/25/2021 4:18 PM CDT someone who was confirmed or suspected to have Coronavirus / COVID-19? documented as of this encounter Last Filed Vital Signs Vital Sign Reading Time Taken Comments Blood Pressure 135/65 02/26/2021 2:51 PM CDT Pulse 62 02/26/2021 2:51 PM CDT Temperature 36.3 ??C (97.3 ??F) 02/26/2021 2:51 PM CDT Respiratory Rate 20 02/26/2021 2:51 PM CDT Oxygen Saturation 90% 02/26/2021 2:51 PM CDT Inhaled Oxygen Concentration - - Weight 95.9 kg (211 lb 6.7 oz) 02/26/2021 5:37 AM CDT Height 188 cm (6' 2) 02/25/2021 8:12 PM CDT Body Mass Index 27.14 02/25/2021 8:12 PM CDT documented in this encounter Functional Status Functional Status Response Date of Assessment Patient's Vision Adequate to Safely Complete Daily Yes 02/25/2021 Activities Patient's Memory Adequate to Safely Complete Daily Yes 02/25/2021 Activities Cognitive Status Response Date of Assessment Patient's Judgment Adequate to Safely Complete Daily Yes 02/25/2021 Activities documented as of this encounter Discharge Summaries Jill Baugh MD - 02/26/2021 11:59 AM CDT 02/26/2021 HOSPITALIST DISCHARGE SUMMARY Jill Baugh MD Patient Name: Jonnathan Costa Date of : 1945 Age: [age] year old Primary Care Provider: No primary care provider on file. Phone: None Admission Date: 02/25/2021 Discharge Date: 02/26/2021 Patient will be discharged from [facility] to Home. Discharge Diagnoses: # Acute on chronic HFpEF; EF 50% echo 11/17/20 ([place]). # Moderate asthma with acute exacerbation. # Acute hypoxic respiratory failure. Medical history: Hypothyroidism 02/23/2021 Atherosclerotic Heart Disease [place] Coronary Artery With Other Forms Angina Pectoris (Angina Equivalent) 10/12/2020 Chronic Kidney Disease (CKD), Stage 3b Glomerular Filtration Rate (GFR) 30 To 44 10/12/2020 Unsteadiness Gait Disorder Non Orthopedic 09/13/2020 ? Failure Heart 05/03/2020 Beat Premature Ventricular 05/03/2020 Chronic Systolic (Congestive) Heart Failure 05/03/2020 History Of Falling 03/15/2020 Cancer Bladder Family History 05/21/2018 ?? Headache Unspecified Pancreatitis Chronic Recurrent Stroke 05/12/2018 Overview: ?? Chronic lacunar infarcts of right cerebellum and hussein as far MRI of head on 09/17/2017.?? 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 Cancer Bladder Lateral Wall ?? Hyperplasia Prostate Benign Localized With Obstruction 05/27/2016 Hypertension Essential Primary 09/20/2011 ?? Gout 09/20/2011 Hyperlipidemia 04/19/2011 Breathing Related Sleep Disorder 04/19/2011 Cough Chronic 12/31/2010 Diabetes Mellitus Type 2 Hyperglycemia 08/24/2008 Diabetes Mellitus Type 2 With Diabetic Neuropathy 08/24/2008 ? Discharge Medications: Discharge Medication List as of 02/26/2021 2:39 PM START taking these medications Details albuterol (Proventil, Ventolin) (5 MG/ML) 0.5% nebulizer solution Take 0.5 mL by nebulization every six hours as needed for Wheezing or Shortness of Breath. Dilute with 2.5 mL saline before nebulizing.Disp-360 mL, R-3, Normal CONTINUE these medications which have NOT CHANGED Details albuterol HFA (Proair HFA, Ventolin HFA) 108 (90 Base) MCG/ACT inhalation aerosol INHALE 2 PUFFS BY INHALATION EVERY 6 HOURS NEEDED FOR SHORTNESS OF BREATHSHAKE WELL (FOR IMMEDIATE RELIEF).Historic atorvaSTATin (Lipitor) 80 MG tablet Take 80 mg by mouth every evening.Historic budesonide-formoterol (Symbicort) 160-4.5 MCG/ACT aerosol inhaler Inhale 2 Puffs into the lungs two times a day.Historic vitamin D3, cholecalciferol, 25 mcg (1000 units) tablet Take 1,000 Units by mouth one time a day.Historic clopidogrel (Plavix) 75 MG tablet Take 1 Tablet by mouth one time a day.Historic escitalopram (Lexapro) 10 MG tablet Take 10 mg by mouth one time a day.Historic insulin aspart (NovoLOG) 100 UNIT/ML pen injection Inject 11 Units under the skin three times a day with meals.Historic insulin glargine (Lantus) 100 UNIT/ML vial injection Inject 30 Units under the skin at bedtime.Historic levothyroxine (Synthroid) 100 MCG tablet Take 100 mcg by mouth one time a day.Historic losartan (Cozaar) 25 MG tablet Take 25 mg by mouth one time a day.Historic metoprolol succinate (Toprol-XL) 25 MG 24 hour extended-release tablet Take 50 mg by mouth one time a day.Historic torsemide (Demadex) 20 MG tablet Take 40 mg by mouth two times a day.Historic traZODone (Desyrel) 100 MG tablet Take 50 mg by mouth one time a day as needed.Historic Discharge Instructions: Take medication as instructed. Follow up appointments: Pt will follow w his Primary Care Provider and obiee architect at [place]. Discharge Procedure Orders Diet/NPO Status Order Specific Question Answer Comments Diet type Heart Healthy (includes 2 Gm Na) Full Code Order Specific Question Answer Comments Discharge code status Full Code Activity as tolerated Oxygen (DME) Requires Face to Face Order Specific Question Answer Comments Has the qualifying Oxygen Testing been performed and documented in the electronic medical record? Yes Testing was performed: Within the last 2 days as an inpatient Order is: Initial Order Max Liter Flow Rate: 2.0 liters/min with activity Home oxygen route Nasal Cannula Oxygen Duration Non-Continuous Indications: With Activity Oxygen Delivery System Stationary and Portable The DME company may use a conserving device with portable system, if using less than 6 liters per minute Yes The DME company may complete Oximetry testing for portable conserving device Yes Length of need (months): 99 Months (Lifetime) Which DME Company will the patient be using? Other (Specify in comments) NWR HPI and Brief Hospital Course: 75-year-old man with chronic HFpEF; EF 50% echo 11/17/20 ([place]), asthma, HTN, insulin-dependent type 2 diabetes. Was admitted here yesterday for acute on chronic HFpEF and acute asthma exacerbation. Presented with progressive shortness of breath with intermittent wheezing, weight gain and edema. Chest x-ray showed small bilateral pleural effusions, new bibasilar atelectasis or consolidations and prominent pulmonary vasculature. BNP was 1113. Troponin 0 0.028. Creatinine 1.62 (CKD stage III). Patient has appropriately diuresed on Bumex drip overnight. He also had scheduled neb treatment with Solu-Medrol. Patient is feeling much better today. His breathing is much better. Has lost 9 lbs of fluid weight. Weight is down to 211 lbs today compared to 220 lbs on admission. Patient wants to go home today so he can make it to his appointment with his obiee architect at [place] tomorrow. Home oxygen test shows oxygen saturation of 90% on room air but with activity saturation dropped to 87%. Patient will need 2 L of oxygen with activity. DME for home oxygen done. Admitting diagnoses: # Acute on chronic HFpEF; EF 50% echo 11/17/20 ([place]). # Moderate asthma with acute exacerbation. # Acute hypoxic respiratory failure. Other comorbidities: # Essential hypertension. # CKD stage III. # Insulin-dependent type 2 diabetes . A1c 7.9 on 02/10/21. On Lantus with NovoLog insulin. # Diabetic neuropathy with unsteady gait. # H/O stroke. On Plavix. # Dyslipidemia. On Lipitor. # Hypothyroidism. On Synthroid. # Depression. On Lexapro. # Insomnia. On trazodone as needed. # Chronic pancreatitis. # H/O bladder cancer treated with surgery (2007). # BPH. S/p green light photo selective vaporization of the prostate. PHYSICAL EXAM: Vitals -131/73, 64, 18, 97.2, 90% on room air. Respiratory - lung sounds improved, no wheezes or crepitations heard. Cardiovascular - heart sounds regular, no murmur or gallops GI - abdomen soft, nontender, normoactive bowel sounds. Extremities - no pedal edema. Pedal pulses appreciable. Neuro - patient is alert, well oriented. Please note: speech recognition software used to create this document may create an occasional unintended word substitution. Jill Baugh MD [facility] Internal Medicine/Hospitalist CC: No primary care provider on file. documented in this encounter Discharge Instructions InstructionsSuCatalina garcia RN - 02/26/2021 1:54 PM CDT Patient Discharge Instructions Medications: ?? Keep a written list of the medicines you take, the amounts, and when and why you take them. Bringthe list of your medications or the pill bottles when you see your caregivers. Learn why you take each medicine. Ask your caregiver for information about your medicine. Do not use any medicines, [id number] drugs, vitamins, herbs, or food supplements without first talking to caregivers. ?? Always take your medicines as directed by caregivers. Call your caregiver if you think your medicine are not helping or if you feel you are having side effects. Do not quit taking your medicines until you discuss it with your caregiver. If you are taking medicines that makes you drowsy, do not drive or use heavy equipment. Patients taking Coumadin or Lovenox - please see Anticoagulate Home Instructions. Home Education Information Influenza Vaccine (seasonal only): N/A (Not influenza vaccination season) Pneumonia Vaccine (year round): Given before hospital stay. Immunization record has been reviewed and updated. Yes TOBACCO CESSATION COUNSELING If you smoke, please quit. Avoid exposure to second hand smoke. Smoking cessation support is available at [employer] (3-259-242-XLHE(0461) or [employer]). Jonnathan Costa does not smoke. We are concerned about your emotional health after discharge. If you are feeling alone, sad, or hopeless, a 24 hour suicide crisis and referral hotline is available at [employer] (3287) or toll-free at Heart Failure:Weigh your self daily., Be more active as you are able., Do not eat more than 2000 mg of sodium a day., Call your doctor if you gain 2 pounds in a day or 5 pounds in a week or more., Callyour doctor if you have increased swelling,chest pain or coughing. and Given Heart Failure Patient Education Sheet Instructions for Care: If you had an IV in place during your stay, please continue to monitor the site for the next 48 hours. Report any redness, swelling, drainage, or fever to your primary care physician. Follow-up appointment and/or referrals Card Given: Yes Keep all appointments. Write down any questions you may have. This way you will remember to ask these questions during your next visit. Questions / Concerns after Discharge: Contact your Care Provider at . primary care clinic Physician: Valuables in Safe: No Home Medications (Inhalers,Ointments, Insulins) Returned to Patient: Yes Vitals Signs BP: 131/73, Temp: 36.2 ??C (97.2 ??F) Oral, Pulse: 59, Resp: 18, SpO2: 92 % AttachmentsThe following attachments cannot be sent through Care Everywhere. Heart Failure, Discharge Instructions for (Azerbaijani)documented in this encounter Medications at Time of Discharge Medication Sig Dispensed Refills Start Date End Date albuterol (Proventil, Take 0.5 mL by 360 mL 3 02/26/2021 Ventolin) (5 MG/ML) 0.5% nebulization every six nebulizer solution hours as needed for Wheezing or Shortness of Breath. Dilute with 2.5 mL saline before nebulizing. albuterol HFA (Proair INHALE 2 PUFFS BY 0 HFA, Ventolin HFA) 108 INHALATION EVERY 6 (90 Base) MCG/ACT HOURS NEEDED FOR inhalation aerosol SHORTNESS OF BREATHSHAKE WELL (FOR IMMEDIATE RELIEF). atorvaSTATin (Lipitor) Take 80 mg by mouth 0 80 MG tablet every evening. budesonide-formoterol Inhale 2 Puffs into the 0 1 (Symbicort) 160-4.5 lungs two times a day. MCG/ACT aerosol inhaler vitamin D3, Take 1,000 Units by 0 cholecalciferol, 25 mcg mouth every afternoon. (1000 units) tablet clopidogrel (Plavix) 75 Take 1 Tablet by mouth 0 04/29/2016 MG tablet every afternoon. escitalopram (Lexapro) Take 10 mg by mouth 0 03/31 10 MG tablet every afternoon. insulin aspart (NovoLOG) Inject 10 units under 0 02/22/2021 100 UNIT/ML pen the skin three times a injection day before meals. Also use sliding scale before meals and bedtime: 1 unit if BG between 250-300, inject 2 units if BG between 301-350, inject 3 units if between 351-400, inject 4 units if BG between 400-450, don't take more than 4 units at bedtime for diabetes. insulin glargine Inject 34 Units under 0 02/23/20 21 (Lantus) 100 UNIT/ML the skin at bedtime. vial injection levothyroxine Take 100 mcg by mouth 0 01/30/2021 (Synthroid) 100 MCG one time a day. tablet metoprolol succinate Take 25 mg by mouth at 0 (Toprol-XL) 25 MG 24 bedtime. hour extended-release tablet documented as of this encounter Ordered Prescriptions Prescription Sig Dispensed Refills Start Date End Date albuterol (Proventil, Take 0.5 mL by 360 mL 3 02/26/2021 Ventolin) (5 MG/ML) 0.5% nebulization every six nebulizer solution hours as needed for Wheezing or Shortness of Breath. Dilute with 2.5 mL saline before nebulizing. documented in this encounter Discharge Disposition Disposition Code Departure Means Destination Home and/or Self Penitentiary documented in this encounter Progress Notes Catalina Amador RN - 02/26/2021 3:40 PM CDT Nursing Discharge Note Vitals: BP: 135/65, Temp: 36.3 ??C (97.3 ??F) Oral, Pulse: 62, Resp: 20, SpO2: 90 % Patient discharged to home at 3:48 PM via ambulating. Copy of AVS given to patient: yes. Patient accompanied by son. Valuables, personal belongings, medical equipment and medications returned to patient at discharge: Yes. Escorted to the hospital exit by Catalina HAGER and assisted to their vehicle. Catalina Amador RN Marko Batista RRT - 02/26/2021 12:53 PM CDT RESPIRATORY THERAPY HOME OXYGEN QUALIFICATION NOTE Rate: 2.0 liters/min with activity Home oxygen route: Nasal Cannula Oxygen Delivery System: Stationary, Portable (>10lbs with movement by stroller) and Ambulatory (<10lbs, meant to be carried) Portable with Conserving Device: Yes Patient Info Resting (on room air) SpO2: 92 % Pulse: 59 Resp: 18 Walking WithOut O2 Walking SpO2 without O2: 87 % Walking Pulse without O2: 71 Walking Resp without O2: 18 Length of Walk WithOut O2 (min): 2 min Walking With O2 Walking SpO2 with O2: 92 % Walking Pulse with O2: 68 Walking Resp with O2: 18 Length of Walk With O2 (min): 2 min Additional Requirements Mobile within the home?: Yes Testing within 48 hours of discharge?: Yes Jonnathan Costa received a list of DME suppliers; they have chosen [id number] for their home oxygen needs. Marko Batista RRT Tammy Lorenz MA - 02/26/2021 12:46 PM CDT 02/26/2021 OCCUPATIONAL THERAPY Tammy Lorenz MA, OTR/L ACUTE CARE INITIAL EVALUATION Evaluation Date: 02/26/2021 Admission Date: 02/25/2021 Admission Diagnosis: Acute left-sided CHF (congestive heart failure) (HCC) [I50.1] Treatment Diagnosis: Impaired mobility and ADL Pertinent Medical/Surgical History: Patient Active Problem List Diagnosis ??? Acute on chronic heart failure with preserved ejection fraction (HFpEF) (HCC) ??? CKD (chronic kidney disease), stage III (HCC) ??? Moderate asthma with acute exacerbation ??? Acute respiratory failure with hypoxia (HCC) ??? Essential hypertension ??? Insulin dependent type 2 diabetes mellitus (HCC) ??? Diabetic neuropathy (HCC) ??? Type 2 diabetes mellitus with hyperglycemia, with long-term current use of insulin (HCC) Procedures/Diagnostics Affecting Therapy: CHF Barriers to Learning: Fatigue Cognitive Cultural Precautions: ?? Bed/chair alarm ?? Fall Risk SUBJECTIVE I just haven't been good lately. Patient???s Goal(s): to go home. Pain: (0-10 scale if able) Pt denied pain. Current Living Situation/Social History: Patient lives with spouse in a home in [place], it is multiple levels, seemingly has to complete 17 steps to reach bedroom level. Pt has tub/shower and walk in showers at home. Pt states they have been thinking of remodeling the office to be a main level bedroom, but have not completed yet. Currently, pt is staying at his cabin, one level, no steps and tub/shower combo. Functional Level Prior to Admit: Patient has history of falls, reports his balance has been off for the last month and reports he is normally independent in ADL. completes majority of IADLs, She's the energizer carlos. Durable Medical Equipment (DME)/Adaptive Equipment Owned: None. OBJECTIVE Observation/Significant Vitals: Pt seated on EOB. RT present, was getting ready to complete 02 qualification. Strength/Range of Motion Assessment: UE AROM: Right AROM Left AROM ?? WFL ?? WFL UE Strength: Right Strength Left Strength ?? 4/5 throughout ?? 4/5 throughout Hand Function/Coordination: Dominant Hand: Right Bilateral coordination and feller machine operator strength is Within function limits. Activities of Daily Living: ?? Pt agreeable for tx. Pt completed donning robe independently. Pt donned slip on shoes independently. Pt was able to demo ability to reach down and touch toes, reporting he has no issues with gettingsocks on. Pt completed sit to stand with SBA. Pt declined to use AE. Pt ambulated with RT, started with 02 on RA at 93%. Pt ambulated approx 100ft and 02 dropped to 86%. RT placed 02 on pt 2L. Rebounded to 92% after approx 2min. Pt finished the ambulation, but did note significant LOB during this time, where therapist did have to support pt. Pt stated, Oh, those legs just don't feel right. Discussed possible use of AE for home use, but pt hesitant, Will defer to PT. Did begin education re: energy conservation as pt does c/o fatigue throughout his day. Provided handout. Cognition: Needs further assessment- pt does tend to hide deficits through humor. Orientation: oriented x 4 Processing Time: delayed Sequencing: fair Organization / Planning: fair Problem solving: poor, tends to have 'his way' of completing tasks. Insight / Safety / Judgment: fair/poor. Pt is aware he is struggling right now, but lacks insight into acknowledging the need for increased services. Communication: able to state needs. Following directions: able to follow 2 step command. Other Assessments: ?? Visual/Perception: pt states no changes, wears glasses, Sensation: pt has hx of neuropathy in BLE. Pt does have multiple scabbed areas on BLE; admits of bumping into things frequently. ?? Edema: pt admits to occasional edema. Pt has tried various compression socks, I hate them all discussed with possible OTC compression to at least have something on his LEs. Pt agreeable to try. Provided handout on where to purchase. Will continue to monitor. Patient/Caregiver Education: The patient received written information and verbal information regarding: ?? Role of occupational therapy ?? Goals with occupational therapy ?? Discharge planning and recommendations ?? Edema management needs The opportunity to ask questions was offered. The patient needed reinforcement of the education . ASSESSMENT/PROGNOSIS Pt referred for decreased ADLs following his recent admission for CHF. Pt is currently assistX[facility] for cares. Did have significant LOB with therapist today. Pt is noted with decreased act tolerance which does impact his overall independence. Pt also noted with decreased cognition which does impact overall independence. Pt does seem to have 24 hour support at home. Pt does tend to have his way in complete tasks which may impact overall safety awareness. Pt may need 02 for home use now, which does add a challenge into his safety awareness. Did recommend pt to seek out OTC compression stockings to at least assist with some of his edema. Pt may benefit from home health, home safety eval to assist with needs. Primary Barrier to Discharge Home: ?? Severity of physical deficits Additional Barriers to Discharge Home: ?? Impaired cognition and Lack of caregiver support ?? Recommendations for Discharge: Home with Home Health Care Services Anticipated DME/Adaptive Equipment Needs for Discharge: Will continue to assess Director Compensation Toilet Seat Riser Shower Chair Grab Bar Hand-held shower Front wheeled walker Goals to be met by (date): 03/03/21: ?? Patient will complete upper body dressing independent ?? Patient will complete lower body dressing independent using AE PRN ?? Patient will complete grooming tasks independent ?? Patient will complete toileting independent ?? Patient will complete further cognitive testing to assist with DC planning. Rehab Potential: Good PLAN OF CARE Interdisciplinary Communication: Evaluation, goals, and plan of care discussed with nursing and PT. Frequency of Occupational Therapy Recommended: 5 days per week Planned interventions may consist of any combination of the following: ?? ADL retraining ?? Functional transfer training ?? UE strengthening/ROM ?? Activity tolerance training ?? Cognitive reorientation ?? Compensatory technique education ?? Continued evaluation Duration of Services: Acute care Occupational Therapy will continue until patient has met prior level of function, safety/independence, or is discharged from the facility. OT Total Treatment Time: 25min Evaluation Moderate - Complexity ([id number]) Tammy Lorenz MA, OTR/L Harman Coles PT - 02/26/2021 12:11 PM CDT 02/26/2021 PHYSICAL THERAPY Harman Coles PT ACUTE CARE INITIAL EVALUATION AND DISCHARGE NOTE Visit # 1 Day# 1 Evaluation Date: 02/26/2021 Admission Date: 02/25/2021 Admission Diagnosis: Acute left-sided CHF (congestive heart failure) (HCC) [I50.1] Treatment Diagnosis: Decreased activity tolerance, Impaired mobility and ADL, Functional gait abnormality, Alterations ofsensation and Impairment of balance Pertinent Medical/Surgical History: Active Problems: Acute on chronic heart failure with preserved ejection fraction (HFpEF) ([facility]) CKD (chronic kidney disease), stage III ([facility]) Moderate asthma with acute exacerbation Acute respiratory failure with hypoxia ([facility]) Essential hypertension Insulin dependent type 2 diabetes mellitus (HCC) Diabetic neuropathy ([facility]) Type 2 diabetes mellitus with hyperglycemia, with long-term current use of insulin (HCC) Procedures/Diagnostics Affecting Therapy: Barriers to Learning: ?? NA Precautions: ?? Full code ?? Oxygen: 2 LPM with activity ?? DM II ?? Falls: Bed/chair alarm SUBJECTIVE Pt agrees to PT wili but plans to leave today at 1400 as needs to be at [facility] tomorrow for a follow up appointment - see chart for further information. RT states he needs 2L oxygen with standing tasks/activities , 5 children, lives in [place] [facility]. States he has a SEC but does not use it and does not agree to use of walker as determined to gain the strength to walk without a device. 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 He attributes loss of balance when walking with OT and RT due to his shoes vs decreased balance status. States he has never fallen due to loss of balance deficits. Chief Complaints: SOB; Weakness; h/o falls; weight gain 75-year-old man with chronic HFpEF; EF 50% echo 11/17/20 ([place]), asthma, HTN, insulin-dependent type 2 diabetes. Presents with progressive SOB x 1 month and worse in the last few days with noted weight gain of about 10 lbs within the last few days (baseline of 205 lbs). Does have a little bit of edema of the lower extremities. No chest pain or palpitations. Patient says that he has been compliant to his medications and that he eats no salt. Admitted 02/25/21; possible asthma exacerbation, CHF, ARF with hypoxia, CKD III, HTN, DM II with neuropathy and h/o unsteady gait, h/o CVA, dyslipidemia, hypothyroidism, depression, insomnia, chronic pancreatitis, bladder CA, BPH Referred to PT for CHF with weakness Patient???s Goal(s): Return to home and (I) with mobility Pain: (0-10 scale if able) Did not report pain during PT session Current Living Situation/Social History: Pt lives with spouse in [place], [place] in a Multilevel home with no steps to entrance. Bed/Bathrooms on upper level with 15 - 17 steps to negotiate. States that the residence he has in this area is one level cabin with tub/shower combo. See OT notes/chart for further information. Functional Level Prior to Admit: Prior to admission to hospital pt performed basic household mobility tasks using no assist or device. Durable Medical Equipment Owned: States he does have a SEC but doesn't use it OBJECTIVE Treatment: Pt was seen 1:1 by PT for Evaluation from [id number] with session ended due to nursing staff and RT staff in need of performing interventions to help with smooth discharge including providingpt with a nebulizer treatment. Cognition: Alert , Oriented and Cooperative Observation/Significant Vitals: Response to PT: no adverse response to PT. No adverse response. SpO2 levels dropped to 86% x only 45seconds before returning to >/= 88% after walking, Vitals: BP: 131/73, Pulse: 64, Resp: 22, SpO2: 93 % using 2 LPM supplemental oxygen Strength/Range of Motion Assessment: Within functional limits ROM and 4-5/5 Strength grossly of trunk / LEs. See OT notes regarding UEs. Functional Mobility Assessment - Therapeutic Activities: Pt performed basic household mobility tasks using UE support/grab bars and without ambulatory devicewith no assist/(I) - SBA due to primary impairments of decreased sensation/edema of distal LEs, decreased activity tolerance secondary to decreased cardio-pulmonary status with decreased dynamic stand balance/stand tolerance. Supine<>Sit: Rolling: No assist Supine<>Sit: No assist; did not need to use UE support/railing/set up Sit<>Stand: (I) /Mod (I) without using 2WW/Grab Bars/Gait belt from bed, chair, toilet Stand Pivot Transfers: Toilet, Bed, Chair: (I)/Mod (I) without using 2WW/Grab bars/Gait belt for stand pivot transfers to<>from bed, chair, toilet Gait: 150 feet with no assist/device using isotoner socks with gripper soles vs with his shoes with distant SBA - (I) without use of 2WW/Gait Belt/Chair follow; Step Through Gait Pattern; Good Posture;WFL Briana Stairs: Unable to formally assess prior to discharge. Therapeutic Exercise: Not performed this session. Balance Assessment: ??? Sitting: Good ??? 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 Neurological Assessment: Presents with decreased sensation of distal LE - stocking distribution consistent with dx of DM Grossly intact Additional Special Tests: NA Patient/Caregiver Education: Caregiver(s) is/are not present. The patient received verbal information regarding importance of activity and role of therapy.The opportunity to ask questions was offered. The patient stated understanding of the education. ASSESSMENT/PROGNOSIS Pt performed basic household mobility tasks using UE support/grab bars and without ambulatory devicewith no assist/(I) - SBA due to primary impairments of decreased sensation/edema of distal LEs, decreased activity tolerance secondary to decreased cardio-pulmonary status with decreased dynamic stand balance/stand tolerance. Primary barrier to Discharge Home: ?? Severity of physical deficits Additional barriers to Discharge Home: ?? Home not accessible Recommendations for Discharge: Home with Outpatient Therapy Services Anticipated DME Needs for Discharge: Would benefit from using his cane to help with balance recovery Goals NA - 1x galina visit/eval only Rehab Potential: Good PLAN OF CARE Interdisciplinary Communication: Functional status, goals, and plan of care discussed with nursing, OT and RT Frequency of Physical Therapy Recommended: Pt was seen 1x only for eval 1:1 by PT. Pt to be discharged today Pt will not need to be seen by [facility] IP PT team as being discharge today. He would benefit from shortcourse of OP based PT interventions as noted below to address impairments/goals in preparation for safe transition to home and return to community based activities/work with appropriate support, services, and equipment. Planned interventions on and OP basis may consist of any combination of the following: ??? Therapeutic Exercise (strength/range of motion) ??? Therapeutic Activities (transfer training/functional mobility) ??? Gait Training ??? Neuromuscular Re-education ??? Patient/Caregiver Education ??? Home Exercise Program Duration of Services: Upon discharge, pt will be followed by ongoing therapists, nurses, and/or physicians. PT Total Treatment Time: 15' ?? Evaluation Low - Complexity ([id number]) Harman Coles, PT Priyanka Yanes RN - 02/25/2021 8:10 PM CDT Jonnathan Costa admitted to Tele unit from emergency department. Transported via wheelchair with O2 escorted by associate technician. Notification of admission: not applicable. Handoff received from ALISSA Zhu RN. Belongings verified: Yes See belongings flowsheet. Priyanka Yanes RN documented in this encounter H&P Notes Jill Baugh MD - 02/25/2021 5:59 PM CDT 02/25/2021 HOSPITALIST ADMISSION NOTE Jill Baugh MD [facility] Patient Name: Jonnathan Costa Date: 1945 Location/Room #: Admission Date: 02/25/2021 Date of service: 02/25/2021 Provider: Jill Baugh MD, Internal Medicine/Hospitalist CC: Progressive shortness of breath with weight gain. HPI: 75-year-old man with chronic HFpEF; EF 50% echo 11/17/20 ([place]), asthma, HTN, insulin-dependent type 2 diabetes. Presents with progressive shortness of breath which has been going on for about a month. Has been worse in the last few days. Has had intermittent wheezing, infrequent productive cough. No fever or chills. Has noted weight gain of about 10 lbs within the last few days; from his baseline of 205 lbs. Does have a little bit of edema of the lower extremities. No chest pain or palpitations. Patient says that he has been compliant to his medications and that he eats no salt. 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 Echo 11/17/20 ([place]): Final Impressions - Mild-moderately enlarged left ventricular chamber size. - Estimated left ventricular ejection fraction 50 %. - Regional wall motion abnormalities were present (see wall motion graphics). - Estimated right ventricular systolic pressure 45 mmHg (systolic blood pressure 135 mmHg). - Severely calcified mitral annulus. - Mitral valve diastolic mean Doppler gradient 2 mmHg (heart rate 52 BPM). - Mild-moderate mitral??valve regurgitation. - Normal inferior vena cava size with normal inspiratory collapse (>50%). -Compared to the report of 04/17/2020 the following changes have occurred: left ventricular systolicfunction improved. Regional wall motion abnormalities better visualized today with use of echo enhancing agent. Chest x-ray in the ED: FINDINGS: Since comparison, new small bilateral pleural effusions. New bibasilar atelectasis or consolidations. Cardiac silhouette obscured. Pulmonary vasculature appears prominent. ED vitals: 172/80, 70, 28, 99, 92% Labs: Sodium 138. Potassium 4.8. Glucose 357. Creatinine 1.62 >> was 1.94 on 02/10/21. Troponin0.028. BNP 1,113. WBC 8.3. Hemoglobin 11.5. Platelets 171. EKG: Pending. ED Meds: Lasix 60 mg IV. DuoNeb. ASSESSMENT/PLAN: # Acute on chronic HFpEF; EF 50% echo 11/17/20 ([place]). # Possible acute asthma exacerbation. # Acute hypoxic respiratory failure due to the above. # CKD stage III. # HTN. Patient will be admitted to telemetry bed. Will do Bumex drip at 0.5 mg/hr, monitor I/O, daily weight and BMP. Continue Toprol-XL, losartan. Schedule neb treatments with Solu-Medrol. On Symbicort which will be continued. Continue oxygen support. # Insulin-dependent type 2 diabetes with hyperglycemia. A1c 7.9 on 02/10/21. On Lantus with NovoLog insulin. Monitor Accu-Cheks. # Diabetic neuropathy with unsteady gait. # H/O stroke. On Plavix. # Dyslipidemia. On Lipitor. # Hypothyroidism. On Synthroid. # Depression. On Lexapro. # Insomnia. On trazodone as needed. # Chronic pancreatitis. Denies any abdominal pain at this time. # H/O bladder cancer treated with surgery (2007). # BPH. S/p green light photo selective vaporization of the prostate. DVT PROPHYLAXIS: Subcu Lovenox. Code Status: Full code. REVIEW OF SYSTEMS: Pertinent review as noted under HPI. All other systems reviewed and negative. 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 Chronic lacunar infarcts of right cerebellum and hussein as far MRI of head on 09/17/2017.?? 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 Cancer Bladder Lateral Wall ?? Hyperplasia Prostate Benign Localized With Obstruction 05/27/2016 Hypertension Essential Primary 09/20/2011 Gout 09/20/2011 Hyperlipidemia 04/19/2011 Breathing Related Sleep Disorder 04/19/2011 Cough Chronic 12/31/2010 Diabetes Mellitus Type 2 Hyperglycemia 08/24/2008 Diabetes Mellitus Type 2 With Diabetic Neuropathy 08/24/2008 Surgical History Surgery Date Site/Laterality Comments TONSILLECTOMY ? LASER OF PROSTATE W/ GREEN LIGHT PVP 08/28/2016 ?? Greenlight photoselective vaporization of the prostate and cystoscopy with bladder biopsy and fulguration of a 2cm area; 08/28/[address] Prasanna Bernal at the [facility].?? COLONOSCOPY 08/10/2013 ?? Repeat in [address] Hamm?? CYSTOSCOPY 05/22/2016 ?? 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 Bernal. ?? COLONOSCOPY 07/03/2009 ? COLONOSCOPY 11/27/2006 - 12/27/2006 ? VASECTOMY ? EXTRACTION CATARACT WITH INSERTION INTRAOCULAR LENS 08/29/2010 - 09/28/2010 Right ?? EXTRACTION CATARACT WITH INSERTION INTRAOCULAR LENS 04/29/2008 - 05/29/2008 [facility]?? BLADDER SURGERY ? TONSILLECTOMY 09/29/1966 - 09/28/1967 ? Active Allergy Reactions Severity Noted Date Comments Amlodipine Hypotension, Nausea Only, Other (see comments) Medium 11/19/2017 ?? Doxycycline Anaphylaxis, Other (see comments) High 07/15/2010 Bactrim ?? Gadobutrol GI intolerance Low 09/17/2017 Patient vomited after administration?? Lisinopril Cough ?? 04/28/2017 ?? Penicillin Hives, Rash High 03/17/2007 Cerner Listed no Reactions?? Sulfa (Sulfonamide Antibiotics) Other (see comments), Anaphylaxis High 03/17/2007 Cerner Listed no Reactions?? Liraglutide GI intolerance ?? 05/12/2018 ?? Medication Sig Dispensed Refills Start Date End Date Status clopidogrel (PLAVIX) 75 mg tablet?? Take 1 tablet by mouth daily. ?? 0 04/29/2016 ?? Active atorvastatin (for_LIPITOR) 80 mg tablet?? Take 80 mg by mouth daily. ?? 0 ? Active PEN NEEDLE, DIABETIC MISC?? Yani Fine 30 disposable needles. For use with Insulin Pens, 4 times daily ?? 0 ? Active SYRINGE-NEEDLE,INSULIN,0.5 ML (INSULIN SYRINGE MISC)? 0 ? Active blood sugar diagnostic (ACCU-CHEK MIHAI PLUS TEST STRP) strips?? Reports checking 4-5 times daily. ?? 0 ? Active escitalopram (LEXAPRO) 10 mg tablet?? Take 1 tablet (10 mg total) by mouth daily. 30 tablet?? 11 04/28/2018 ?? Active cholecalciferol, vitamin D3, (cholecalciferol) 1,000 Unit tablet?? Take 1,000 Units by mouth daily. ?? 0 ? Active albuterol inhaler?? INHALE 2 PUFFS BY INHALATION EVERY 6 HOURS NEEDED FOR SHORTNESS OF BREATHSHAKE WELL (FOR IMMEDIATE RELIEF). ?? 0 ? Active budesonide-formoteroL (SYMBICORT) 160-4.5 mcg/actuation inhaler?? Indications: Asthma Extrinsic Moderate (HCC) Inhale 2 puffs 2 (two) times a day. Start at 1 puff twice daily x 4 weeks, then 2 puffs twice daily if tolerated. 1 Inhaler?? 11 06/30/2020 ?? Active levothyroxine (SYNTHROID, LEVOTHROID) 100 mcg tablet?? Take 1 tablet (100 mcg total) by mouth daily.90 tablet?? 3 01/30/2021 ?? Active insulin glargine (Lantus U-100 Insulin) 100 unit/mL injection?? Indications: Diabetes Mellitus Type 2 Hyperglycemia (HCC) Inject 30 Units under the skin at bedtime.?? 0 02/22/2021 ?? Active insulin aspart U-100 (NovoLOG FlexPen) 100 unit/mL (3 mL) injection?? Inject 11 Units under the skin3 (three) times a day with meals. ?? 0 02/22/2021 ?? Active traZODone (DESYREL) 100 mg tablet?? Take 0.5 tablets (50 mg total) by mouth at bedtime as needed forsleep. 30 tablet?? 1 02/22/2021 02/22/2022 Active torsemide (DEMADEX) 20 mg tablet?? Indications: Hypertension Essential Primary Take 2 tablets (40 mg total) by mouth 2 (two) times a day. 360 tablet?? 3 02/22/2021 02/22/2022 Active losartan (COZAAR) 25 mg tablet?? Take 1 tablet (25 mg total) by mouth daily. 90 tablet?? 3 02/22/2021 02/22/2022 Active metoprolol succinate (TOPROL-XL) 25 mg 24 hr tablet?? Indications: Hypertension Essential Primary Take 2 tablets (50 mg total) by mouth daily. Do not crush or chew. 180 tablet?? 3 02/22/2021 02/22/2022 Active FHx: Reviewed. SOCIAL Hx: with 5 children. Accompanied by and daughter. Lives in [facility]. Quitsmoking about 40 years ago. Rarely drinks alcohol. Physical exam: Vitals: 189/82, 72, 31, 99, 92% on 2 L of oxygen. General -elderly man. Lying propped up in bed. Obviously dyspneic and wheezy; worse with talking. HEENT -Normocephalic. Both pupils normal, reactive to light. No pallor or icterus. Neck supple No JVD or carotid bruit or cervical lymphadenopathy. Respiratory - lung sounds diminished with inspiratory and expiratory wheezes. No crepitations heard. Cardiovascular - heart sounds regular, no murmur. GI - abdomen soft, nontender, normoactive bowel sounds. Ext - Some pedal edema; abt 1-2+. Pedal pulses appreciable. Neuro - patient is alert, well oriented, no focal deficits. Please note: speech recognition software used to create this document may create an occasional unintended word substitution. Jill Baugh MD [facility] Internal Medicine/Hospitalist documented in this encounter Consult Antonella De La Torre PharmD - 02/25/2021 6:43 PM CDT [employer]ING HOUSE SUPERVISOR Medication History obtained by: Antonella Randhawa, Pharm.D Home medication list updated using: spouse and Care Everywhere (Organization: [facility]) Spoke with the patient? No, Azra Number of medications removed from profile: 0 Number of medications added to profile: 13 Number of medications adjusted on profile: 0 Number of High alert medications added, removed, or adjusted: 3 High alert medications added, removed, or adjusted during medication history: Insulin and Antiplatelet agent Number of minutes for this reconciliation: 25 Recommendations/other information: All meds added new to EH list; obiee architect removed imdur 60mg daily, hydralazine 25mg every 8hrs and amiodarone 200mg daily on . Prior to Admission Medications Prescriptions Last Dose Informant Patient Reported? Taking? albuterol HFA (Proair HFA, Ventolin HFA) 108 (90 Base) MCG/ACT inhalation aerosol Unknown at Unknowntime Yes Yes Sig: INHALE 2 PUFFS BY INHALATION EVERY 6 HOURS NEEDED FOR SHORTNESS OF BREATHSHAKE WELL (FORIMMEDIATE RELIEF). atorvaSTATin (Lipitor) 80 MG tablet 02/24/2021 at brock Yes Yes Sig: Take 80 mg by mouth every evening. budesonide-formoterol (Symbicort) 160-4.5 MCG/ACT aerosol inhaler 02/25/2021 at 08 Yes Yes Sig: Inhale 2 Puffs into the lungs two times a day. clopidogrel (Plavix) 75 MG tablet 02/25/2021 at 08 Yes Yes Sig: Take 1 Tablet by mouth one time a day. escitalopram (Lexapro) 10 MG tablet 02/25/2021 at 14 Yes Yes Sig: Take 10 mg by mouth one time a day. insulin aspart (NovoLOG) 100 UNIT/ML pen injection 02/25/2021 at Unknown time Yes Yes Sig: Inject 11 Units under the skin three times a day with meals. insulin glargine (Lantus) 100 UNIT/ML vial injection 02/24/2021 at Unknown time Yes Yes Sig: Inject 30 Units under the skin at bedtime. levothyroxine (Synthroid) 100 MCG tablet 02/25/2021 at 06 Yes Yes Sig: Take 100 mcg by mouth one time a day. losartan (Cozaar) 25 MG tablet 02/25/2021 at 08 Yes Yes Sig: Take 25 mg by mouth one time a day. metoprolol succinate (Toprol-XL) 25 MG 24 hour extended-release tablet 02/25/2021 at 14 Yes Yes Sig: Take 50 mg by mouth one time a day. torsemide (Demadex) 20 MG tablet 02/25/2021 at 14 Yes Yes Sig: Take 40 mg by mouth two times a day. traZODone (Desyrel) 100 MG tablet Past Month at Unknown time Yes Yes Sig: Take 50 mg by mouth one time a day as needed. vitamin D3, cholecalciferol, 25 mcg (1000 units) tablet 02/25/2021 at 08 Yes Yes Sig: Take 1,000 Units by mouth one time a day. Facility-Administered Medications: None If questions arise, please call the central pharmacy. Thank you, Antonella Randhawa Pharm.D 02/25/2021, 6:43 PM documented in this encounter ED Notes Alissa Machado RN - 02/25/2021 6:52 PM CDT Called for report, nurse will call back. Alissa Machado RN - 02/25/2021 6:26 PM CDT Verbal report given to ALLEY Lawson. All questions answered at this time. Johnson Rubio MD - 02/25/2021 6:20 PM CDT Patient: Jonnathan Costa Means of Arrival: Wheelchair Chief Complaint: Difficulty Breathing History of Present Illness: HPI Patient is a 75-year-old male with multiple medical problems including congestive heart failure and asthma who is presenting to the emergency room with complaints of shortness of breath. Patient reports shortness of breath consistent with his CHF for about a month. He follow-up with his obiee architect on . Multiple adjustments were made to his medications. He was discontinued on amiodarone and hydralazine. He was started on losartan. Metoprolol was increased. He had his torsemide increased. With this he is noted increased shortness of breath the last 2 to 3days with severe shortness of breathwith exertion and orthopnea. He is also having slight cough. Denies any fevers chills or sweats. He is not having chest pain. He has had a increase in lower extremity edema and about a 6 to 7 pound weight gain in the last 2 to 3 days. Review of Systems: Review of Systems All other systems reviewed and are negative. Allergies Allergen Reactions ??? Bactrim [Sulfamethoxazole W-Trimethoprim] Other ??? Penicillins Hives ??? Sulfa Drugs Other Prior to Admission Medication List Med List Status: ED Triage Only Set By: Morelia Gardiner RN at 02/25/2021 4:23 PM No Medications Reported Past Medical History: Past Medical History: Diagnosis Date ??? Asthma ??? Bladder cancer (HCC) ??? Chronic systolic CHF (congestive heart failure) (HCC) ??? CKD (chronic kidney disease) ??? Dyslipidemia ??? Gout ??? Hypertension ??? Hypothyroidism ??? Stroke (HCC) ??? Type 2 diabetes mellitus (HCC) Past Surgical History: No past surgical history on file. Family History: No family history on file. Social History: Social History Tobacco Use ??? Smoking status: Not on file Substance Use Topics ??? Alcohol use: Not on file ??? Drug use: Not on file Social History Substance and Sexual Activity Drug Use Not on file Exam: Initial Vitals Most Recent Vitals Temp: 99 ??F (37.2 ??C) (02/25/211619) Temp: 99 ??F (37.2 ??C) (02/25/211619) Pulse: 70 (02/25/211619) Pulse: 72 (02/25/211812) Resp: 28 (02/25/211619) Resp: (!) 31 (02/25/211812) BP: (!) 172/80 (02/25/211619) BP: (!) 189/82 (02/25/211812) SpO2: 92 % (02/25/211619) SpO2: 92 % (02/25/211812) Weight: 97.5 kg (215 lb) (05/30/21 1620) O2 Flow Rate (L/min): 4 L/min (02/25/21 1631) O2 Flow Rate (L/min): 2 L/min (02/25/21 1700) Physical Exam: Physical Exam Vitals and nursing note reviewed. Constitutional: General: He is not in acute distress. Appearance: He is well-developed. HENT: Head: Normocephalic and atraumatic. Right Ear: Hearing and ear canal normal. No drainage. Left Ear: Hearing and ear canal normal. No drainage. Nose: Nose normal. Mouth/Throat: Pharynx: Uvula midline. Eyes: General: Lids are normal. Conjunctiva/sclera: Conjunctivae normal. Neck: Thyroid: No thyromegaly. Vascular: No JVD. Trachea: Trachea normal. Cardiovascular: Rate and Rhythm: Normal rate and regular rhythm. Heart sounds: Normal heart sounds. Pulmonary: Effort: Respiratory distress present. Breath sounds: Rales present. Abdominal: General: Bowel sounds are normal. Palpations: Abdomen is soft. Tenderness: There is no abdominal tenderness. Musculoskeletal: General: No tenderness. Cervical back: Neck supple. Lymphadenopathy: Cervical: No cervical adenopathy. Skin: General: Skin is warm and dry. Capillary Refill: Capillary refill takes less than 2 seconds. Nails: There is no clubbing. Neurological: Mental Status: He is alert and oriented to person, place, and time. Sensory: No sensory deficit. Psychiatric: Mood and Affect: Mood normal. Speech: Speech normal. Behavior: Behavior normal. Lab Results: Results for orders placed or performed during the hospital encounter of 02/25/21 BNP Collection Time: 02/25/21 4:55 PM Result Value Ref Range B-Type Natriuretic Peptide (BNP) 1,113 (H) <=100 pg/mL BASIC METABOLIC PANEL Collection Time: 02/25/21 4:55 PM Result Value Ref Range Sodium 138 134 - 143 mEq/L Potassium 4.8 3.4 - 5.1 mEq/L Chloride 106 99 - 110 mEq/L Carbon Dioxide 22 19 - 29 mEq/L Anion Gap 10.0 3.0 - 15.0 mEq/L Blood Urea Nitrogen 30 (H) 5 - 24 mg/dL Creatinine 1.62 (H) 0.70 - 1.20 mg/dL Glomerular Filtration Rate 42 (L) >60 mL/min/1.73 m*2 Calcium 9.0 8.4 - 10.5 mg/dL Glucose 357 (H) 70 - 99 mg/dL TROPONIN I Collection Time: 02/25/21 4:55 PM Result Value Ref Range Troponin I 0.028 0.000 - 0.028 ng/mL HEMOGRAM/DIFFERENTIAL Collection Time: 02/25/21 4:55 PM Result Value Ref Range WBC 8.3 3.2 - 11.0 10*9/L RBC 3.75 (L) 4.14 - 5.76 10*12/L HGB 11.5 (L) 12.9 - 16.9 g/dL HCT 35.2 (L) 38.4 - 49.7 % MCV 93.9 81.4 - 99.0 fL MCH 30.7 26.7 - 33.1 pg MCHC 32.7 31.6 - 35.5 g/dL RDW 13.5 11.3 - 14.6 % PLT 171 130 - 375 10*9/L Neutrophils % 83.0 % Lymphocytes % 6.6 % Monocytes % 6.3 % Eosinophils % 2.9 % Basophils % 0.7 % Immature Granulocytes % 0.5 % Neutrophils Absolute 6.9 1.5 - 7.6 10*9/L Lymphocytes Absolute 0.6 (L) 0.8 - 3.3 10*9/L Monocytes Absolute 0.5 0.2 - 0.9 10*9/L Eosinophils Absolute 0.2 0.0 - 0.4 10*9/L Basophils Absolute 0.1 0.0 - 0.1 10*9/L Immature Granulocytes Absolute 0.04 0.00 - 0.06 10*9/L MAGNESIUM Collection Time: 02/25/21 4:55 PM Result Value Ref Range Magnesium 2.0 1.8 - 2.7 mg/dL Imaging Results: Imaging Results XR CHEST 2 VIEWS (Final result) Result time 02/25/21 17:22:00 Final result by Alfred Srinivasan MD (02/25/21 17:22:00) Narrative: This document is currently in Final Status Exam XR CHEST 2 VIEWS INDICATION: shortness of breath; COMPARISON: Radiograph 03/09/2019 FINDINGS: Since comparison, new small bilateral pleural effusions. New bibasilar atelectasis or consolidations. Cardiac silhouette obscured. Pulmonary vasculature appears prominent. Electronically Signed: Alrfed Srinivasan 02/25/2021 5:22 PM Emergency Department Course: Medications ipratropium-albuterol (DUO-NEB) 0.5-2.5 (3) MG/3ML nebulizer solution 3 mL (has no administration intime range) furosemide (Lasix) injection 60 mg (60 mg IV Push Given 02/25/21 180) Procedures: Procedures Assessment: Acute on chronic congestive heart failure Plan: Discharge Prescriptions None MDM Patient presenting here to the emergency room with acutely worsening congestive heart failure. He has had multiple medication changes that may worsen this but already was declining prior to the medication changes. See no indication of infection at this time. He does not have any chest pain does not have an elevated troponin or significant EKG changes consistent with acute coronary syndrome. Patient does also have a history of asthma and did develop wheezing here in emerged part was given DuoNeb. Lasix 60 mg IV has been ordered. I have spoken with the hospitalist service who agrees to transfer the patient to a medical bed. Patient not appropriate for discharge with severe dyspnea exertion and hypoxia. Disposition: ED Disposition ED Disposition Comment Admit Johnson Rubio MD 02/25/[id number] Abby Recinos HUC - 02/25/2021 6:02 PM CDT Paged RT. Abby Recinos HUC - 02/25/2021 5:37 PM CDT Paged hospitalist. Alissa Machado RN - 02/25/2021 4:25 PM CDT Pt presents with ongoing SOB, has hx of CHF which he has been doctoring for recenetly with recent med changes. Presents with worsening SOB x 2 days, sats at home in the 70's with exertion. On arrival, from wheelchair to bed sats drop to 78% on RA, recovered quickly with 4 LPM NC to mid 90's. Morelia Gardiner RN - 02/25/2021 4:17 PM CDT Pt arrives to ED c/o difficulty breathing x 1 month, worse last few days with low oxygen levels today. documented in this encounter Miscellaneous Notes Care Plan - Catalina Amador RN - 02/26/2021 2:41 PM CDT Problem: Risk of Bleeding Goal: Absence of impaired coagulation signs and symptoms and active bleeding Outcome: Progressing No bleeding noted this shift. Scant amount when IV discontinued. Problem: Fall Risk Goal: Absence of falls Outcome: Progressing No falls this shift. Problem: Discharge Planning Goal: No barriers to discharge Outcome: Progressing Going home later today Problem: Cardiac/Cardiovascular Goal: Cardiovascular system functioning within defined limits Outcome: Progressing WNL Patient Goals: The patient centered goal for this shift:: go home (02/26/21 1000). Evaluation of patient goal progress to be met. Care Plan - Priyanka Yanes RN - 02/26/2021 7:48 AM CDT Problem: Risk of Bleeding Goal: Absence of impaired coagulation signs and symptoms and active bleeding Outcome: Maintaining; No signs of active bleeding. Lovenox administered per EMAR. Problem: Fall Risk Goal: Absence of falls Outcome: Maintaining; Set up only to get OOB. Uses urinal at bedside. Appropriate use of call light.Alert and oriented x4. Problem: Discharge Planning Goal: No barriers to discharge Outcome: Maintaining; No plans to discharge at this time, [employer] gtt running. Problem: Cardiac/Cardiovascular Goal: Cardiovascular system functioning within defined limits Outcome: Progressing; SR. Denies chest pain. C/O SOB with activity. Between 2-5 L of O2 via nasal cannula throughout night, 5 L while sleeping. Problem: Skin Goal: Skin integrity within defined limits Outcome: Maintaining; Scattered bruising and abrasions. Turns self in bed. Patient Goals: The patient centered goal for this shift:: Sleep (02/26/21 0030). Evaluation of patient goal progress; goal met. Urine output 1850 mL yellow urine. Down 9 pounds this AM. documented in this encounter Plan of Treatment Not on filedocumented as of this encounter Procedures Procedure Name Priority Date/Time Associated Diagnosis Comme nts GLUCOSE, METER Routine 02/26/2021 12:00 PM Result s for this CDT procedure are i n the results section. GLUCOSE, METER Routine 02/26/2021 7:31 AM Results for this CDT procedure are i n the results section. BASIC METABOLIC Routine 02/26/2021 5:56 AM Result s for this PANEL CDT procedure are i n the results section. HEMOGRAM Routine 02/26/2021 5:56 AM Results f or this CDT procedure are i n the results section. EKG 12-LEAD Routine 02/25/2021 11:08 PM Results for this CDT procedure are i n the results section. GLUCOSE, METER Routine 02/25/2021 9:15 PM Results for this CDT procedure are i n the results section. RAPID SARS-COV-2 STAT 02/25/2021 6:31 PM Resul ts for this RNA (COVID-19), CDT procedure ar e in MOLECULAR DETECTION the resu lts section. XR CHEST 2 VIEWS STAT 02/25/2021 5:15 PM Resul ts for this CDT procedure are i n the results section. PROCALCITONIN, Add on 02/25/2021 4:55 PM Results for this BLOOD CDT procedure are i n the results section. BNP STAT 02/25/2021 4:55 PM Results f or this CDT procedure are i n the results section. BASIC METABOLIC STAT 02/25/2021 4:55 PM Result s for this PANEL CDT procedure are i n the results section. TROPONIN I STAT 02/25/2021 4:55 PM Results f or this CDT procedure are i n the results section. HEMOGRAM/DIFF STAT 02/25/2021 4:55 PM Results for this CDT procedure are i n the results section. MAGNESIUM Add on 02/25/2021 4:55 PM Results f or this CDT procedure are i n the results section. documented in this encounter Results (ABNORMAL) GLUCOSE, METER (02/26/2021 12:00 PM CDT) athologist Signature Glucose Meter 303 (H) 70 - 99 02/26/[address] mg/dL 12:06 PM CDT [facility] POINT OF CARE Specimen Anatomical Collection Method Collection Time Receive d Time (Source) Location / / Volume Laterality Blood BLOOD SPECIMEN / 02/26/2021 12:00 021 Unknown PM CDT 12:06 PM CDT Jill Baugh MD EC CHEMISTRY ORDERABLES Performing Organization Address City/[facility] Phon e Number [facility] [address] [address] POINT OF CARE (ABNORMAL) GLUCOSE, METER (02/26/2021 7:31 AM CDT) athologist Signature Glucose Meter 246 (H) 70 - 99 02/26/[address] mg/dL 7:37 AM T [facility] POINT OF CARE Specimen Anatomical Collection Method Collection Time Receive d Time (Source) Location / / Volume Laterality Blood BLOOD SPECIMEN / 02/26/2021 7:31 AM 02/26 7:37 Unknown CDT AM CDT Jill Baugh MD EC CHEMISTRY ORDERABLES Performing Organization Address [facility] Phon e Number [facility] [address] [address] POINT OF CARE (ABNORMAL) HEMOGRAM (02/26/2021 5:56 AM CDT) athologist Signature WBC 4.9 3.2 - 11.0 02/26/2021 [facility] 10*9/L 6:[address] [facility] RBC 3.39 (L) 4.14 - 5.76 02/26/2021 [facility] 10*12/L 6:33 AM [facility] HGB 10.3 (L) 12.9 - 16.9 02/26/2021 [facility] g/dL 6:33 AM [facility] HCT 31.2 (L) 38.4 - 49.7 02/26/2021 [facility] % 6:33 AM [facility] MCV 92.0 81.4 - 99.0 02/26/2021 [facility] fL 6:33 AM [facility] MCH 30.4 26.7 - 33.1 02/26/2021 [facility] [facility] pg 6:33 AM [facility] MCHC 33.0 31.6 - 35.5 02/26/2021 [facility] [facility] g/dL 6:33 AM [facility] RDW 13.1 11.3 - 14.6 02/26/2021 [facility]. [facility] % 6:33 AM [facility] PLT 179 130 - 375 02/26/2021 [facility]. [facility] 10*9/L 6:33 AM [facility] LAB[facility] Specimen Anatomical Collection Method / Collection Time Recei pee Time (Source) Location / Volume Laterality Blood BLOOD SPECIMEN / Venipuncture / 02/26/2021 5:56 2020 6:27 Unknown Unknown AM CDT AM CDT Jill Baugh MD EC HEMATOLOGY ORDERABLES Performing Organization Address City/State/ZIP Code Phon e Number [place] [address] LABORATORY (ABNORMAL) BASIC METABOLIC PANEL (02/26/2021 5:56 AM CDT) [facility] Method Time Signature Sodium 139 134 - 143 02/26/2021 ST. mEq/L 6:56 AM [facility] Potassium 4.4 3.4 - 5.1 02/26/2021 ST. mEq/L 6:56 AM [facility] Chloride 108 99 - 110 02/26/2021 ST. mEq/L 6:56 AM [facility] Carbon Dioxide 21 19 - 29 02/26/2021 ST. mEq/L 6:56 AM [facility] Anion Gap 10.0 3.0 - 15.0 02/26/2021 ST. mEq/L 6:56 AM [facility] Blood Urea 32 (H) 5 - 24 02/26/2021 ST. Nitrogen mg/dL 6:56 AM [facility] Creatinine 1.62 (H) 0.70 - 02/26/2021 ST. 1.20 mg/dL 6:56 AM [facility] Glomerular 42 (L) >60 02/26/2021 [facility]. Filtration Rate mL/min/1.7 6:56 AM [facility] 3 m*2 [facility] Comment: Complications of CKD and risk o f cardiovascular disease increase when GFR is below 60ml.min/1.73m2. A persistently re duced GFR is a specific indication of Chronic Kidney Disease. The eGFR calculation has not been validated in patients >70yrs. Calcium 8.5 8.4 - 10.5 mg/dL 02/26/2021 6:56 AM T [facility] Glucose 238 (H) 70 - 99 mg/dL 02/26/2021 6:56 AM T [facility] Specimen Anatomical Collection Method / Collection Time Recei pee Time (Source) Location / Volume Laterality Blood BLOOD SPECIMEN / Venipuncture / 02/26/2021 5:56 2020 6:27 Unknown Unknown AM CDT AM CDT Narrative [facility] LABORATOR Y - 02/26/2021 6:56 AM CDT Current ADA criteria for Glucose: ?Normal: 70-99 mg/dL ?Impaired Fasting Glucose: 100-125 mg/dL ?Diabetes Mellitus: at or above 126 mg/dL The diagnosis of diabetes must be confir med on a subsequent day by measuring Fasting Plasma Glucose, 2-hr PG or random plasma glucose (if symptoms are present). Jill Baugh MD EC CHEMISTRY ORDERABLES Performing Organization Address City/State/ZIP Code Phon e Number [facility] [address] [place] [address] 401 LABORATORY EKG 12-LEAD (02/25/2021 11:08 PM CDT) P athologist Signature Ventricular Rate 62 BPM MUSE Atrial Rate 62 BPM MUSE P-R Interval 232 ms MUSE QRS Duration 98 ms MUSE QT 480 ms MUSE QTc 487 ms MUSE P [place] 18 degrees MUSE R [place] -41 degrees MUSE T [place] -39 degrees MUSE Specimen (Source) Anatomical Collection Method Collection Time Re ceived Time Location / / Volume Laterality 02/25/2021 11:08 PM CDT Narrative MUSE - 02/26/2021 6:06 PM CDT Confirming Doc Dhiraj Santiago MD Sinus rhythm with 1st degree A-V block Left axis deviation Prolonged QT Abnormal ECG No previous ECGs available Procedure Note Dhiraj Santiago MD - 02/26/2021Format ting of this note might be different from the original. Confirming Doc Dhiraj Santiago MD Sinus rhythm with 1st degree A-V block Left axis deviation Prolonged QT Abnormal ECG No previous ECGs available Jill Baugh MD IP ECG ORDERABLES Performing Organization Address City/[facility]/ZIP Code Phon e Number MUSE (ABNORMAL) GLUCOSE, METER (02/25/2021 9:15 PM CDT) athologist Signature Glucose Meter 276 (H) 70 - 99 02/25/[address] mg/dL 9:21 PM CDT [facility] POINT OF CARE Specimen Anatomical Collection Method Collection Time Receive d Time (Source) Location / / Volume Laterality Blood BLOOD SPECIMEN / 02/25/2021 9:15 PM 02/25 9:21 Unknown CDT PM CDT Jill Baugh MD EC CHEMISTRY ORDERABLES Performing Organization Address City/[facility] Phon e Number [facility] [address] [place] [address] POINT OF CARE STAT SARS-COV-2 RNA (COVID-19) (02/25/2021 6:31 PM CDT) [facility] gist Method Time Signature SARS-CoV-2 Negative Negative/Not 02/25/2021 ST. RNA Detected 7:15 PM CDT [facility] ([facility] Comment: SARS-CoV-2 (COVID-19) target nu cleic acids are not detected. COVID-19 can not be completely ruled out as sensitivi ty of the test depends on the timing of specimen collection and quality of the s pecimen. Specimen Anatomical Location Collection Method Collection Time Received Time (Source) / Laterality / Volume Swab ENTIRE NASOPHARYNX COVID-19 02/25/2021 6:31 2020 6:35 / Unknown Collection / PM CDT PM CDT Unknown Narrative [facility] LABORATOR Y - 02/25/2021 7:15 PM CDT Test detects target RNA by real-time polymerase chain reaction (PCR) on the [employer] GeneXpert System. Results should be used in combination wi th clinical observations, patient history and epidemiological information. Results from this test should not be use d as the sole basis for treatment or other patient management decisions. The SARS-CoV-2 test is currently only fo r use under the Food and Drug Administration's Emergency Use Authorization. ??Additional information about conditions of authorization for this test can be found at: https://www.fda.gov/medical-devices/pbsobadro-tikngfirwo-fhpynyq-devices/emergen my-vxp-ctxrqxnnjeemkr Johnson Rubio MD EC MICROBIOLOGY - GENERAL OR DERABLES Performing Organization Address City/State/ZIP Code Phon e Number [place] [id number] [place] [address] LABORATORY XR CHEST 2 VIEWS (02/25/2021 5:15 PM CDT) Anatomical Region Laterality Modality Chest Radiographic Imaging Specimen (Source) Anatomical Collection Method Collection Time Re ceived Time Location / / Volume Laterality 02/25/2021 5:15 PM CDT Narrative 02/25/2021 5:22 PM CDT This document is currently in Final Status Exam XR CHEST 2 VIEWS INDICATION: shortness of breath; COMPARISON: Radiograph 03/09/2019 FINDINGS: Since comparison, new small bi lateral pleural effusions. New bibasilar atelectasis or consolidations. Cardiac silhouette obscured. Pulmonary vasculature appears prominent. Electronically Signed: Alfred hancock 02/25/2021 5:22 PM Procedure Note Alfred Srinivasan MD - 02/25/2021Fo rmatting of this note might be different from the original. This document is currently in Final Stat us Exam XR CHEST 2 VIEWS INDICATION: shortness of breath; COMPARISON: Radiograph 03/09/2019 FINDINGS: Since comparison, new small bi lateral pleural effusions. New bibasilar atelectasis or consolidations. Cardiac silhouette obscured. Pulmonary vasculature appears prominent. Electronically Signed: Alfred Goldberg karissa 02/25/2021 5:22 PM Johnson Rubio MD EC DIAGNOSTIC IMAGING ORDERA BLES PROCALCITONIN, BLOOD (02/25/2021 4:55 PM CDT) athologist Signature Procalcitonin 0.04 <0.50 02/25/2021 [facility] ng/mL 7:[address] [facility] Specimen Anatomical Collection Method / Collection Time Recei pee Time (Source) Location / Volume Laterality Blood BLOOD SPECIMEN / Venipuncture / 02/25/2021 4:55 2020 4:59 Unknown Unknown PM CDT PM CDT Narrative [facility] LABORATOR Y - 02/25/2021 7:27 PM CDT Procalcitonin Interpretation Guidelines: Diagnosis of systemic bacterial infectio n/sepsis and/or septic shock: < 0.50 ng/mL ? Low risk for se psis; localized bacterial infection possible 0.50 - 2.00 ng/mL ?Sepsis is possibl e; Interpret in context of specific clinical background and condition of ? the patie nt - recommend retesting Procalcitonin within 6 - 24 hours > 2.00 ng/mL ? High risk for s epsis and/or septic shock Diagnosis of lower respiratory tract inf ection: < 0.10 ng/mL ? Bacterial infec tion very unlikely 0.10 - 0.25 ng/mL ?Bacterial infecti on unlikely 0.26 - 0.50 ng/mL ?Bacterial infecti on likely > 0.50 ng/mL ? Bacterial infec tion very likely Procalcitonin levels must be interpreted in the context of all laboratory findings and the total clinical status of the patient. Jill Baugh MD EC LAB SEND OUT ORDERABLES Performing Organization Address City/State/ZIP Code Phon e Number [facility] [address] [place] [address] LABORATORY MAGNESIUM (02/25/2021 4:55 PM CDT) P athologist Signature Magnesium 2.0 1.8 - 2.7 02/25/2021 [facility] mg/dL 6:20 PM [facility] Specimen Anatomical Collection Method / Collection Time Recei pee Time (Source) Location / Volume Laterality Blood BLOOD SPECIMEN / Venipuncture / 02/25/2021 4:55 2020 4:59 Unknown Unknown PM CDT PM CDT Jill Baugh MD EC CHEMISTRY ORDERABLES Performing Organization Address City/[facility] Code Phon e Number [facility] [address] [place] [address] 401 LABORATORY (ABNORMAL) BASIC METABOLIC PANEL (02/25/2021 4:55 PM CDT) Patholo gist Method Time Signature Sodium 138 134 - 143 02/25/2021 ST. mEq/L 5:17 PM [facility] Potassium 4.8 3.4 - 5.1 02/25/2021 ST. mEq/L 5:17 PM [facility] Chloride 106 99 - 110 02/25/2021 ST. mEq/L 5:17 PM [facility] Carbon Dioxide 22 19 - 29 02/25/2021 ST. mEq/L 5:17 PM [facility] Anion Gap 10.0 3.0 - 15.0 02/25/2021 ST. mEq/L 5:17 PM [facility] Blood Urea 30 (H) 5 - 24 02/25/2021 ST. Nitrogen mg/dL 5:17 PM [facility] Creatinine 1.62 (H) 0.70 - 02/25/2021 ST. 1.20 mg/dL 5:17 PM [facility] Glomerular 42 (L) >60 02/25/2021 ST. Filtration Rate mL/min/1.7 5:17 PM [facility] 3 m*2 [facility] Comment: Complications of CKD and risk o f cardiovascular disease increase when GFR is below 60ml.min/1.73m2. A persistently re duced GFR is a specific indication of Chronic Kidney Disease. The eGFR calculation has not been validated in patients >70yrs. Calcium 9.0 8.4 - 10.5 mg/dL 02/25/2021 5:17 PM CDT [facility] Glucose 357 (H) 70 - 99 mg/dL 02/25/2021 5:17 PM CDT [facility] Specimen Anatomical Collection Method / Collection Time Recei pee Time (Source) Location / Volume Laterality Blood BLOOD SPECIMEN / Venipuncture / 02/25/2021 4:55 2020 4:59 Unknown Unknown PM CDT PM CDT Narrative [facility] LABORATOR Y - 02/25/2021 5:17 PM CDT Current ADA criteria for Glucose: ?Normal: 70-99 mg/dL ?Impaired Fasting Glucose: 100-125 mg/dL ?Diabetes Mellitus: at or above 126 mg/dL The diagnosis of diabetes must be confir med on a subsequent day by measuring Fasting Plasma Glucose, 2-hr PG or random plasma glucose (if symptoms are present). Johnson Rubio MD EC CHEMISTRY ORDERABLES Performing Organization Address City/State/ZIP Code Phon e Number [address] [address] LABORATORY TROPONIN I (02/25/2021 4:55 PM CDT) P athologist Signature Troponin I 0.028 0.000 - 02/25/2021 [facility] 0.028 ng/mL 5:[address] [facility] Specimen Anatomical Collection Method / Collection Time Recei pee Time (Source) Location / Volume Laterality Blood BLOOD SPECIMEN / Venipuncture / 02/25/2021 4:55 2020 4:59 Unknown Unknown PM CDT PM CDT Narrative [facility] LABORATOR Y - 02/25/2021 5:24 PM CDT Because no pediatric reference range alhaji a is published, the adult reference range will be utilized as this represents 99% of healthy adults. Johnson Rubio MD EC CHEMISTRY ORDERABLES Performing Organization Address [facility] Phon e Number [facility] [address] [address] LABORATORY (ABNORMAL) BNP (02/25/2021 4:55 PM CDT) [facility] Method Time Signature B-Type 1,113 (H) <=100 02/25/2021 ST. Natriuretic pg/mL 5:24 PM CDT [facility] Peptide (BNP) [facility] Specimen Anatomical Collection Method / Collection Time Recei pee Time (Source) Location / Volume Laterality Blood BLOOD SPECIMEN / Venipuncture / 02/25/2021 4:55 2020 4:59 Unknown Unknown PM CDT PM CDT Narrative [facility] LABORATOR Y - 02/25/2021 5:24 PM CDT CAUTION: BNP results will be elevated in patients on nesiritide (Natrecor). Please wait five half-lives (2 hrs) after infus ion of nesiritide before drawing a BNP level. Johnson Rubio MD EC CHEMISTRY ORDERABLES ABN Performing Organization Address [facility] Phon e Number [facility] [address] [address] LABORATORY (ABNORMAL) HEMOGRAM/DIFFERENTIAL (02/25/2021 4:55 PM CDT) [facility] Method Time Signature WBC 8.3 3.2 - 02/25/2021 ST. 11.0 5:02 PM CDT [facility] 10*9/L [facility] RBC 3.75 (L) 4.14 - 02/25/2021 ST. 5.76 5:02 PM CDT [facility] 10*12/L [facility] HGB 11.5 (L) 12.9 - 02/25/2021 ST. 16.9 g/dL 5:02 PM T [facility] HCT 35.2 (L) 38.4 - 02/25/2021 ST. 49.7 % 5:02 PM T [facility] MCV 93.9 81.4 - 02/25/2021 ST. 99.0 fL 5:02 PM [facility] MCH 30.7 26.7 - 02/25/2021 ST. 33.1 pg 5:02 PM [facility] MCHC 32.7 31.6 - 02/25/2021 ST. 35.5 g/dL 5:02 PM [facility] RDW 13.5 11.3 - 02/25/2021 ST. 14.6 % 5:02 PM [facility] PLT 171 130 - 375 02/25/2021 ST. 10*9/L 5:02 PM [facility] Neutrophils % 83.0 % 02/25/2021 ST. 5:02 PM [facility] Lymphocytes % 6.6 % 02/25/2021 ST. 5:02 PM [facility] Monocytes % 6.3 % 02/25/2021 ST. 5:02 PM [facility] Eosinophils % 2.9 % 02/25/2021 ST. 5:02 PM [facility] Basophils % 0.7 % 02/25/2021 ST. 5:02 PM [facility] Immature 0.5 % 02/25/2021 ST. Granulocytes % 5:02 PM [facility] Neutrophils 6.9 1.5 - 7.6 02/25/2021 ST. Absolute 10*9/L 5:02 PM [facility] Lymphocytes 0.6 (L) 0.8 - 3.3 02/25/2021 ST. Absolute 10*9/L 5:02 PM [facility] Monocytes 0.5 0.2 - 0.9 02/25/2021 ST. Absolute 10*9/L 5:02 PM [facility] Eosinophils 0.2 0.0 - 0.4 02/25/2021 ST. Absolute 10*9/L 5:02 PM [facility] Basophils 0.1 0.0 - 0.1 02/25/2021 ST. Absolute 10*9/L 5:02 PM [facility] Immature 0.04 0.00 - 02/25/2021 ST. Granulocytes 0.06 5:02 PM CDT [facility] 10*9/L [facility] Specimen Anatomical Collection Method / Collection Time Recei pee Time (Source) Location / Volume Laterality Blood BLOOD SPECIMEN / Venipuncture / 02/25/2021 4:55 2020 4:59 Unknown Unknown PM CDT PM CDT Johnson Rubio MD EC HEMATOLOGY ORDERABLES Performing Organization Address City/State/ZIP Code Phon e Number [facility] 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) Type II or unspecified type diabetes tres litus without mention of complication, not stated as uncontrolled Diabetic neuropathy (HCC) Type II or unspecified type diabetes tres litus with neurological manifestations, not stated as uncontrolled Type 2 diabetes mellitus with hyperglyce peter, with long-term current use of insulin (HCC) documented in this encounter Administered Medications Inactive Administered Medications Medication Order MAR Action Action Date Dose Rate Site atorvaSTATin (Lipitor) tablet 80 mg Given 02/25/2021 9:23 PM CDT 80 mg 80 mg, Oral, EVERY EVENING, First dose on 02/25/21 at 2100, Until Discontinued budesonide-formoterol (Symbicort) 160-4.5 Given 02/26/2021 7:14 AM CDT 2 Puffs MCG/ACT 2 Puff 2 Puff, Inhalation, 2 TIMES DAILY, First dose on 02/25/21 at 2100, Until Discontinued bumetanide (Bumex) 0.1 mg/mL in New Bag 02/25/2021 9:28 PM CDT 0.5 mg/hr 5 mL/hr sodium chloride 0.9% (NS) infusion 0.5 mg/hr (5 mL/hr), Intravenous, CONTINUOUS, Starting on Sun 21 at 2030, Until Fri02/26/21 at 1949 clopidogrel (Plavix) tablet 75 mg Given 02/26/2021 8:40 AM CDT 75 mg 75 mg, Oral, ONCE DAILY, First dose on Fri02/26/21 at 0900, Until Discontinued enoxaparin (Lovenox) 40 MG/0.4ML injection 40 Given 9:24 PM CDT 40 mg mg 40 mg, Subcutaneous, EVERY 24 HOURS, First dose on Fri02/25/21 at 2100, Until Discontinued escitalopram (Lexapro) tablet 10 mg Given 02/26/2021 8:40 AM CDT 10 mg 10 mg, Oral, ONCE DAILY, First dose on Fri02/26/21 at 0900, Until Discontinued furosemide (Lasix) injection 60 mg Given 02/25/2021 6:04 PM CDT 60 mg 60 mg, IV Push, ONCE, 1 dose, On Fri02/25/21 at 1750 insulin aspart (NovoLOG) injection (CARB Given 02/26/2021 12:02 PM CDT 4 Units DOSE) 1-13 Units 1-13 Units, Subcutaneous, CARB DOSE; WITH MEALS AND SNACKS, First dose on Fri02/25/21 at 2100, Until Discontinued, Carb Ratio - Breakfast (gm/unit): 15, Carb Ratio - Lunch (gm/unit): 15, Carb Ratio - Dinner (gm/unit): 15, Carb Ratio - AM Snack (gm/unit): 15, Carb Ratio - Bedtime Snack (gm/unit): 15 Given 02/26/2021 8:44 AM CDT 4 Units Given 02/25/2021 9:18 PM CDT 1 Units insulin aspart (NovoLOG) injection Given 02/26/2021 12:02 PM CDT 5 Units (CORRECTION DOSE) 1-16 Units 1-16 Units, Subcutaneous, WITH MEALS AND BEDTIME, First dose on Fri02/25/21 at 2100, Until Discontinued, Blood Glucose Target - Daytime (mg/dL): 145, Blood Glucose Target - Bedtime and Overnight (mg/dL): 170, Hyperglycemia Correction Factor - Daytime: 30, Hyperglycemia Correction Factor - Bedtime and Overnight: 60 Given 02/26/2021 8:42 AM CDT 3 Units Given 02/25/2021 9:15 PM CDT 2 Units insulin glargine (Lantus) vial injection Given 02/25/2021 11 :13 PM CDT 30 Units 30 Units 30 Units, Subcutaneous, AT BEDTIME, First dose on Fri02/25/21 at 2130, Until Discontinued ipratropium-albuterol (DUO-NEB) 0.5-2.5 (3) Given 02/25/2021 6:4 9 PM CDT 3 mL MG/3ML nebulizer solution 3 mL 3 mL, Inhalation, ONCE, 1 dose, On Fri02/25/21 at 1800 ipratropium-albuterol (DUO-NEB) 0.5-2.5 (3) Given 02/26/2021 1:2 0 PM CDT 3 mL MG/3ML nebulizer solution 3 mL 3 mL, Inhalation, EVERY 6 HOURS (RT), First dose on Fri02/26/21 at 0100, Until Discontinued Given 02/26/2021 7:14 AM CDT 3 mL Given 02/26/2021 1:37 AM CDT 3 mL levothyroxine (Synthroid) tablet 100 mcg Given 02/26/2021 7:40 AM CDT 100 mcg 100 mcg, Oral, EVERY MORNING BEFORE BREAKFAST, First dose on Fri02/26/21 at 0730, Until Discontinued losartan (Cozaar) tablet 25 mg Given 02/26/2021 8:40 AM CDT 25 mg 25 mg, Oral, ONCE DAILY, First dose on Fri02/26/21 at 0900, Until Discontinued methylPREDNISolone sod succ (SOLU-Medrol) Given 02/26/2021 1:26 PM CDT 80 mg injection 80 mg 80 mg, IV Push, EVERY 8 HOURS, First dose on Fri02/25/21 at 2100, Until Discontinued Given 02/26/2021 5:30 AM CDT 80 mg Given 02/25/2021 9:26 PM CDT 80 mg metoprolol succinate (Toprol-XL) 24 hour Given 02/26/2021 8:40 A M CDT 50 mg tablet 50 mg 50 mg, Oral, ONCE DAILY, First dose on Fri02/26/21 at 0900, Until Discontinued senna-docusate (Senokot-S) 8.6-50 MG per tablet 1 Tablet 1 Tablet, Oral, 2 TIMES DAILY, First dose on Fri at 0930, Until Discontinued vitamin D (cholecalciferol) 25 mcg (1000 Given 021 8:40 AM CDT 1,000 Units units) tablet 1,000 Units 1,000 Units, Oral, ONCE DAILY, First dose on Fri02/26/21 at 0900, Until Discontinued documented in this encounter Discontinued Medications Medication Sig Discontinue Reason Start Date End Date pancrelipase, Take 1 Cap by Deleted via home med 11/27/201802/25 [id number], mouth before large review ([id number]) 64999 meals UNIT Capsule Delayed Release Particles documented as of this encounter Historical Medications This list may reflect changes made after this encounter. Medication Sig Dispensed Refills Start Date End Date metoprolol succinate Take 25 mg by mouth 0 2020 (Toprol-XL) 25 MG 24 at bedtime. hour extended-release tablet levothyroxine Take 100 mcg by mouth 0 01/30/2021 (Synthroid) 100 MCG one time a day. tablet insulin glargine Inject 34 Units under 0 02/23/20 21 (Lantus) 100 UNIT/ML the skin at bedtime. vial injection insulin aspart (NovoLOG) Inject 10 units under 0 02/22/2021 100 UNIT/ML pen the skin three times injection a day before meals. Also use sliding scale before meals and bedtime: 1 unit if BG between 250-300, inject 2 units if BG between 301-350, inject 3 units if between 351-400, inject 4 units if BG between 400-450, don't take more than 4 units at bedtime for diabetes. escitalopram (Lexapro) Take 10 mg by mouth 0 03/31 10 MG tablet every afternoon. clopidogrel (Plavix) 75 Take 1 Tablet by 0 2015 MG tablet mouth every afternoon. vitamin D3, Take 1,000 Units by 0 cholecalciferol, 25 mcg mouth every (1000 units) tablet afternoon. budesonide-formoterol Inhale 2 Puffs into 0 06/30 (Symbicort) 160-4.5 the lungs two times a MCG/ACT aerosol inhaler day. atorvaSTATin (Lipitor) Take 80 mg by mouth 0 80 MG tablet every evening. albuterol HFA (Proair INHALE 2 PUFFS BY 0 HFA, Ventolin HFA) 108 INHALATION EVERY 6 (90 Base) MCG/ACT HOURS NEEDED FOR inhalation aerosol SHORTNESS OF BREATHSHAKE WELL (FOR IMMEDIATE RELIEF). traZODone (Desyrel) 100 Take 50 mg by mouth 0 12/24/2021 MG tablet at bedtime as needed for Sleep. torsemide (Demadex) 20 Take 20 mg by mouth 0 01/2812/24/2021 MG tablet one time a day. losartan (Cozaar) 25 MG Take 50 mg by mouth 0 12/24/2021 tablet one time a day. added in this encounter Active and Recently Administered Medications Times are shown in CDT. Scheduled Medication Order 02/24/2021 02/25/2021 02/26/2021 atorvaSTATin (Lipitor) tablet 80 mg 2122 (Given - Provider: Priyanka Yanes RN) 80 mg, Oral, EVERY EVENING, First dose o n Fri02/25/21 at 2100, Until Discontinued budesonide-formoterol (Symbicort) 160-4.5 MCG/ACT 2 Puff 2057 (Not Given - Provider: Hernandez Beard RRT - Reason: Medication not available) 0714 (Given - Provider: Marko Batista RRT)0900 (Canceled Entry - Provider: Marko Batista RRT) 2 Puff, Inhalation, 2 TIMES DAILY, First dose on 02/25/21 at 2100, Until Discontinued clopidogrel (Plavix) tablet 75 mg 839 (Given - Provider: Catalina Amador RN) 75 mg, Oral, ONCE DAILY, First dose on Fri02/26/21 at 0900, Until Discontinued enoxaparin (Lovenox) 40 MG/0.4ML injection 40 mg 2123 (Given - Provider: Priyanka Yanes RN) 40 mg, Subcutaneous, EVERY 24 HOURS, Fir st dose on 02/25/21 at 2100, Until Discontinued escitalopram (Lexapro) tablet 10 mg 839 (Given - Provider: Catalina Amador RN) 10 mg, Oral, ONCE DAILY, First dose on Fri02/26/21 at 0900, Until Discontinued furosemide (Lasix) injection 60 mg (COMPLETED) 1804 (Given - Provider: Alissa Machado, ALLEY) 60 mg, IV Push, ONCE, 1 dose, On 02/25/21 at 1750 insulin aspart (NovoLOG) injection (CARB DOSE) 1-13 Units 2117 (Given - Provider: Priyanka Yanes RN) 0844 (Given - Provider: Catalina marin, ALLEY)1202 (Given - Provider: Catalina Amador, ALLEY) 1-13 Units, Subcutaneous, CARB DOSE; WIT H MEALS AND SNACKS, First dose on 02/25/21 at 2100, Until Discontinued, Carb Ratio - Breakfast (gm/unit): 15, Carb Ratio - Lunch (gm/unit): 15, Carb Ratio - Di nner (gm/unit): 15, Carb Ratio - AM Snac k (gm/unit): 15, Carb Ratio - Bedtime Snack (gm/unit): 15 insulin aspart (NovoLOG) injection (CORRECTION DOSE) 1-16 Un its 2114 (Given - Provider: Priyanka Yanes RN) 0842 (Given - Provider: Catalina marin RN)1202 (Given - Provider: Catalina Amador, ALLEY) 1-16 Units, Subcutaneous, WITH MEALS AND BEDTIME, First dose on 02/25/21 at 2100, Until Discontinued, Blood Glucose Target - Daytime (mg/dL): 145, Blood Glucose Target - Bedtime and Overnight (mg/dL) : 170, Hyperglycemia Correction Factor - Daytime: 30, Hyperglycemia Correction Factor - Bedtime and Overnight: 60 insulin glargine (Lantus) vial injection 30 Units 2312 (Given - Provider: Vashti Brown, ALLEY) 30 Units, Subcutaneous, AT BEDTIME, Firs t dose on 02/25/21 at 2130, Until Discontinued ipratropium-albuterol (DUO-NEB) 0.5-2.5 (3) MG/3ML nebulizer solution 3 mL (COMPLETED) 1848 (Given - Provider: Wendy Díaz RT) 3 mL, Inhalation, ONCE, 1 dose, On 02/25/21 at 1800 ipratropium-albuterol (DUO-NEB) 0.5-2.5 (3) MG/3ML nebulizer caitlin ution 3 mL 013 (Given - Provider: Hernandez Beard RRT)0714 (Given - Provider: Marko Batista, JENNI)1320 (Given - Provider: Marko Batista RRT) 3 mL, Inhalation, EVERY 6 HOURS (RT), Fi rst dose on Fri02/26/21 at 0100, Until Discontinued levothyroxine (Synthroid) tablet 100 mcg 0740 (Given - Provider: Catalina Amador, ALLEY) 100 mcg, Oral, EVERY MORNING BEFORE KENNETH KFAST, First dose on Fri02/26/21 at 0730, Until Discontinued losartan (Cozaar) tablet 25 mg 0 840 (Given - Provider: Catalina Amador RN) 25 mg, Oral, ONCE DAILY, First dose on Fri02/26/21 at 0900, Until Discontinued methylPREDNISolone sod succ (SOLU-Medrol) injection 80 mg 2126 (Given - Provider: Priyanka Yanes, ALLEY) 0530 (Given - Provider: Priyanka Yanes, ALLEY)1326 (Given - Provider: Catalina Amador, ALLEY) 80 mg, IV Push, EVERY 8 HOURS, First dos e on 02/25/21 at 2100, Until Discontinued metoprolol succinate (Toprol-XL) 24 hour tablet 50 mg 0840 (Given - Provider: Catalina Amador RN) 50 mg, Oral, ONCE DAILY, First dose on Fri02/26/21 at 0900, Until Discontinued senna-docusate (Senokot-S) 8.6-50 MG per tablet 1 Tablet 1322 (Not Given - Provider: Catalina Amador RN - Reason: Patient/Family refused) 1 Tablet, Oral, 2 TIMES DAILY, First dos e on Fri02/26/21 at 0930, Until Discontinued traZODone (Desyrel) tablet 50 mg 2123 (N ot Given - Provider: Priyanka Yanes RN - Reason: Patient/Family refused) 50 mg, Oral, AT BEDTIME, First dose on Fri02/25/21 at 2100, Until Discontinued vitamin D (cholecalciferol) 25 mcg (1000 units) tablet 1,000 Uni ts 0840 (Given - Provider: Catalina Amador RN) 1,000 Units, Oral, ONCE DAILY, First dos e on Fri02/26/21 at 0900, Until Discontinued Continuous Medication Order 02/24/2021 02/25/2021 02/26/2021 bumetanide (Bumex) 0.1 mg/mL in sodium chloride 0.9% (NS) in fusion 2127 (New Bag - Provider: Priyanka Yanes, RN) 1354 (Stopped - Provider: Catalina Amador RN - Comment: pt discharging) 0.5 mg/hr (5 mL/hr), Intravenous, CONTIN UOUS, Starting on Fri02/25/21 at 2030, Until Fri02/26/21 at 1948 PRN Medication Order 02/24/2021 02/25/2021 02/26/2021 acetaminophen (TYLENOL) tablet 650 mg 650 mg, Oral, EVERY 4 HOURS NEEDED, S tarting on Fri02/25/21 at 2023, Until Fri02/26/21 at 1948, Mild Pain (1-3), Fever, Headache albuterol (Proventil, Ventolin) (2.5 MG/3ML) 0.083% nebulizer so lution 2.5 mg 2.5 mg, Inhalation, EVERY 2 HOURS NEE DED, Starting on Fri02/25/21 at 2023, Until Fri02/26/21 at 1948, Shortness of Breath albuterol HFA (Proair HFA, Ventolin HFA) inhaler 2 Puff 2 Puff, Inhalation, EVERY 4 HOURS NEE DED, Starting on Fri02/25/21 at 2023, Until Fri02/26/21 at 194, Shortness of Breath dextrose (D50) 50 % injection 12.5-25 g 12.5-25 g, IV Push, NEEDED, Starting on Fri02/25/21 at 2023, Until Fri02/26/21 at 194, Hypoglycemia glucagon (diagnostic) (Glucagen) injection 1 mg 1 mg, Intramuscular, NEEDED, Starting on Fri02/25/21 at 2023, Until Fri02/26/21 at 194, Hypoglycemia glucose (Glutose) 40 % gel 37.5-112.5 g 37.5-112.5 g, Oral, NEEDED, Starting on Fri02/25/21 at 2023, Until Fri02/26/21 at 194, Hypoglycemia documented in this encounter Orders Medications Ordered That Might Not Have Count Last Ord ered Date First Ordered Date Been Administered senna-docusate (Senokot-S) 8.6-50 MG per 1 021 tablet 1 Tablet acetaminophen (TYLENOL) tablet 650 mg 1 02/25/2021 albuterol (Proventil, Ventolin) (2.5 1 02/25/2021 MG/3ML) 0.083% nebulizer solution 2.5 mg albuterol HFA (Proair HFA, Ventolin HFA) 1 inhaler 2 Puff dextrose (D50) 50 % injection 12.5-25 g 1 02/26/20 21 glucagon (diagnostic) (Glucagen) injection 1 02/25 1 mg glucose (Glutose) 40 % gel 37.5-112.5 g 1 02/26/20 21 traZODone (Desyrel) tablet 50 mg 1 02/25/2021 Admission Count Last Ordered Date First Ordered Date ADMIT TO INPATIENT 1 02/25/2021 Transfer Count Last Ordered Date First Ordered Date ED BED REQUEST 1 02/25/2021 Discharge Count Last Ordered Date First Ordered Date DISCHARGE PATIENT 1 02/26/2021 Diet Count Last Ordered Date First Ordered Date DIET/NPO STATUS ESS 1 02/26/2021 Nursing Count Last Ordered Date First Ordered Date ACTIVITY TOLERATED 1 02/26/2021 DISCHARGE CODE STATUS 1 02/26/2021 Consult Count Last Ordered Date First Ordered Date PHARMACIST MEDICATION RECONCILIATION 1 02/25/2021 DME F2F Count Last Ordered Date First Ordered Date OXYGEN (DME) 1 02/26/2021 documented in this encounter Additional Health Concerns Infection Onset Date Last Indicated Resolved Time R/O COVID-19 02/25/2021 02/25/2021 02/25/2021 7:15 PM CDT documented as of this encounter
--- OUTSIDE RECORDS SUMMARY | 2022-05-21 11:40 | XMS_ITS | Encounter Summary ---
:1945 Author Organization [facility] [employer] Address [address] [address] Phone Care Team Providers Name Role Phone Unavailable Primary Care Provider Unavailable Encounter Details Date Type Department Care Team Description 02/25/2021 Travel Social History Tobacco Use Types Packs/Day [...] / COVID-19? documented as of this encounter Functional Status Functional Status Response Date of Assessment Patient's Vision Adequate to Safely Complete Daily Yes 02/25/2021 Activities Patient's Memory Adequate to Safely Complete Daily Yes 02/25/2021 Activities Cognitive Status Response Date of Assessment Patient's Judgment Adequate to Safely Complete Daily Yes 02/25/2021 Activities documented as of this encounter Plan of Treatment Not on filedocumented as of this encounter Visit Diagnoses Not on filedocumented in this encounter Additional Health Concerns Infection Onset Date Last Indicated Resolved Time R/O COVID-19 02/25/2021 02/25/2021 02/25/2021 7:15 PM CDT documented as of this encounter
--- OUTSIDE RECORDS SUMMARY | 2022-05-21 11:40 | XMS_ITS | Encounter Summary ---
:1945 Author Organization [facility] Address [address] [address] Phone Care Team Providers Name Role Phone Unavailable Primary Care Provider Unavailable Reason for Visit Reason Comments Cerebral Vascular Accident Auth/Cert Specialty Diagnoses / Procedures Referred By Contact Refer red To Contact Diagnoses TIA (transient ischemic attack) Elevated troponin Transient ischemic attack [address] [facility] [address] [place] [address] [place] [address] Referral ID Status Reason Start Date Expiration Date Visits Requ ested Visits Authorized [id number] 1 1 Encounter Details Date Type Department Care Team Description 12/23/2021 - [facility] [address] [place] [address] [place], [place] [id number] TIA (transient ischemic attack) (Primary Dx); 12/24/2021 [facility] Holly Owen MD [address] [place] [address] [phone] Elevated troponin; [address] [place] [address] Malachi Alves, PUMP REBUILDER, COUNSELOR AT [employer] [address] [place] [address] [phone] Cerebrovascular accident (CVA) due to em bolism of cerebral artery (HCC) [place] [id number] Social History Tobacco Use Types Packs/Day Years [...] been in contact with No / Unsure 12/23/2021 11:19 PM CDT someone who was confirmed or [...] Mass Index 28.08 12/24/2021 2:03 AM CDT documented in this encounter Functional Status Functional Status Response Date of Assessment Patient's Vision Adequate to Safely Complete Daily Yes 12/24/2021 Activities Patient's Memory Adequate to Safely Complete Daily Yes 12/24/2021 Activities Cognitive Status Response Date of Assessment Patient's Judgment Adequate to Safely Complete Daily Yes 12/24/2021 Activities documented as of this encounter Discharge Summaries Malachi Alves APRN, CNP - 12/24/2021 4:33 PM CDT Images from the original note were not included. Hospital Medicine Discharge Summary Primary Care Physician: No primary care provider on file. Discharge Physician: Malachi Alves APRN, CNP Admission Date: 12/23/2021 Discharge Date: 12/24/2021 Disposition: Discharged to home Condition at Discharge: Stable Code Status: Full Code Admission Diagnoses: TIA (transient ischemic attack) [G45.9] Elevated troponin [R77.8] Transient ischemic attack [G45.9] Discharge Diagnosis: Embolic stroke (HCC) Elevated troponin Hospital Summary and Discharge Plan: Beth Duran is a??76-year-old male with a history of hypertension, hyperlipidemia, type 2 diabetes on insulin, hypothyroidism, chronic kidney disease stage IIIb, asthma,??HFpEF, ??Pancreatitis,with prior episodes of TIA- like symptoms presented to the emergency room via EMS after he experienced about 30 minutes of a visual field deficit in his right eye and loss of function of his right arm and leg. Concerning for TIA along with elevated troponin TIA (transient ischemic attack) - Fall Had been feeling fine throughout the day. About 9:30 PM noticed his heart was feeling funny like a low blood sugar but Beth did not feelhe was having a low blood sugar. -Got up and to sit in a different room -Got up again and fell to the floor he had no strength in his right arm or leg. His assisted him to the couch. He had fallen to the floor hitting his head right elbow and right hip. ??Denies anyloss of consciousness. ??Denies being lightheaded or dizzy prior to the fall. ( when he fell, sustained some minor skin tears over the dorsal right elbow) When he was sitting on the athletic coach watching TV and was unable to see the screen fully with his right eye. ?? -EMS was called and??and noted patient still had a little drift in his right upper extremity when they got to his home although it seemed to be resolving prior to reaching the emergency department. Symptoms had almost resolved ( reported Weakness in his right arm) by the time he reached the emergency room. Blood sugar was 100??when EMS arrived Patient reports symptoms lasted > 30 minutes but < one hour Patient reports approximately 3 or 4 episodes of TIAs in the past.?? NIHSS-->0 ?? CT head: no acute intracranial proscess CT angio head and neck: IMPRESSION: 1. 50% narrowing at the takeoff of the right ICA and distal right common carotid artery. 2. No hemodynamically significant stenosis in the left ICA with plaque at the bulb. 3. Patent cerebral vasculature. ?? Laboratory studies: Sodium: 139 Potassium: 4.2 Creatinine: 1.58 ??glucose 184 EKG: sinus rhythm with 1st degree AV block and frequent PVC's, poor R-wave progression, flipped T-waves noted in leads V4-6 ( compared with eKG january 2021, poor r-wave progression and T-waves upright) ? Seen by stroke neurology, Dr. Maria E Laguna, please refer to consult note for further details Cause: TBD Risk factors: hypertension, DM and CHF -recommend to be monitored overnight on telementry Start aspirin Permissive hypertension, treat if BP > 180/100 MRI ?? Has remained on telemetry: sinus rhythm with 1degree AV block and frequent PVC's MR head: IMPRESSION: ??Foci of subacute infarct in multiple vascular distributions as described above. These are likely greater than 24 hours old. Consider an embolic source. ECHO: Interpretation Summary 1. Normal left ventricular size, normal systolic performance, LVEF 55% frequent ectopy may make EF estimate less accurate 2. Moderate concentric left ventricular hypertrophy 3. No significant valvular heart disease 4. Mild biatrial enlargement 5. No shunting at the atrial septal level however, no bubble study performed A1C 9.6% Lipid profile: Total cholesterol:125 HDL:28 LDL:66 Triglycerides:156 ?? Follow-up Neurology, Dr. Luiz Washington via [facility], [place] to consult note for further details, in brief, symptoms had resolved therefore did ot receive acute thrombolytic therapy. ?? RISK FACTOR Modification/Education: ?? Hypertension: Goal <??130/80. ?? Hyperlipidemia:??LDL goal <??70. ?? Smoking Status:??Former smoker. ?? Diabetes:??A1c goal of <??7%. ?? Diet:??Mediterranean. ?? Exercise: Daily aerobic > 30 minutes as tolerated. ?? Assessment: ?? 1) Diagnosis:?Embolic ischemic strokes.?? 2) Cause:?Embolic strokes of undetermined source.?? 3) Risk factor profile:?HTN, lipid disorder, DM2, history of TIA, cardiomyopathy, silent cerebrovascular disease/lacunar infarcts.?? 4) Comorbidities:?Chronic kidney disease.? Recommendations for discharge:? ASA 325 mg daily x30 days. Clopidogrel 75 mg x30 days. ?*If possible please check P2Y12 level. If not efficacious, he should be onASA and stop clopidogrel. If efficacious, he can continue on clopidogrel. ?*Anticoagulation indicated only if embolic source is identified. Atorvsatatin 80 mg daily. Therapies as indicated. Prevention strategies as above. 30-day extended cardiac monitoring as outpatient to evaluate for thrombogenic arrhythmia. If negative, can consider insertable cardiac monitoring (LINQ). Follow up with neurology as outpatient.? -Mr. Duran wanted to be discharged from early in the morning. Reported feeling great and no additional symptoms. Up independently in his room. Passed his bedside swallow evaluation by speech and was on a oral diet. - Holter monitor was ordered at discharge, but currently the monitors are being mailed to the patient. ? Of note, unable to check P2Y12 level at [facility]. Recommend level tested at [facility] ?? Elevated troponin level -??0.377-->0.362-->0.310-->0.283 no chest pain but felt palpitations and collapsed so may have been dysrhythmia. ?? Given ASA, continue ASA and Plavix. telementry?? as above Cardiology consulted for elevated troponin and concern for EKG changes. Patient seen by Estelle Rob CNP, please refer to consult note. Impression/Plan: 1. CVA symptoms that resolved on ER arrival. 2. MRI head showing subacute infarct in multiple vascular distributions, likely greater than 24 hours old. 3. HFpEF- compensated 4. Elevated troponin 5. History of PVCs ?? Beth has not experienced further CVA or TIA type symptoms. Neurology is discussing which anticoagulant he should continue in light of MRI findings. We have not identified paroxysmal atrial fibrillation on monitor. He has occasional PVCs on telemetry. He would do best with an event monitor to check for atrial arrhythmia that might explain his CVA pattern. Meanwhile he has troponin elevation of unclear significance. He is not experiencing anginal symptoms. His EKG was nonischemic. He had coronary CTAtwo years showing minimal nonobstructive disease. 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 Plan of care reviewed with Dr. Natasha Lopez. ?? Mr. De Santiago was wanting to leave after he was seen by Estelle Rob CNP and requesting his monitor and IV to be removed. Unfortunately, Mr De Santiago wanted to discharge before being seen by Dr. Lopez. Dr. Lopez recommendations: Most concerning is the possibility that he has paroxysmal atrial fibrillation and is not anticoagulated. -Would recommend both an outpatient adenosine Cardiolite and a 30-day event monitor. -If no cause of CVA is found consider an implantable loop recorder ?Chronic heart failure with preserved ejection fraction (HFpEF) ([facility]) no increased dyspnea or edema. Appears to be euvolemic. ??Troponin elevated as above. -??Continue usual medications of ASA, Lipitor, Plavix, losartan, metoprolol and torsemide. ?Type 2 diabetes mellitus with hyperglycemia, with long-term current use of insulin ([facility]) - checks his glucose levels 4-5 times per day and has insulin SS and basal. Recently started Ozempic ( questioning the of thuseis medication with hx of pancreatitis) - and on SGLT2 A1C 9.6% (12/24/2021) Fasting glucose 184 Pre-meal glucose 283 -will continue on [employer] medications and follow-up with PCP ?Essential hypertension -??continue losartan and metoprolol. ??No prn medications unless BP >??180/100 for permissive HTN. ?Stage 3b chronic kidney disease (HCC) - creatine on presentation 1.58. appears to be at his baseline. ??Follow with diuretic use. ?? Diagnostic Studies: Labs: See labs in [facility] from 12/23/2021 - 12/24/2021 Microbiology: Covid, negative Imaging/cardiac graphics: Ct head, CT angio head/neck, MRI, ECHO Procedures this admission: none Consult/s: IP CONSULT TO [facility] IP CONSULT HF INPATIENT CASE MANAGEMENT BRD IP CONSULT TO [facility] IP CONSULT TO OFF PREMISE SERVICE REPRESENTATIVE IP CONSULT TO CARDIOLOGY, see notes for full details of consult Discharge Instructions: Follow up appointment with Primary Care Physician: No primary care provider on file. within 3 work days. [facility] with [facility] [place] and has appointment scheduled for December 27. Important medication changes: See AVS medication list below Follow up appointment with specialist: Neurology and cardiology Follow up test / procedure to do as outpatient: Diet: heart healthy, CHO consistant Activity/Restrictions: None Wound care: none Lines/drains: none Pending tests: none Discharge Medications: Current Discharge Medication List New Prescriptions Details aspirin 325 MG tablet Dose: 325 mg Start taking on: December 25, 2021 325 mg, Oral, ONCE DAILY Continued Details * albuterol HFA 108 (90 Base) MCG/ACT inhalation aerosol Commonly known as: Proair HFA, Ventolin HFA INHALE 2 PUFFS BY INHALATION EVERY 6 HOURS NEEDED FOR SHORTNESS OF BREATHSHAKE WELL (FOR IMMEDIATE RELIEF). * albuterol (5 MG/ML) 0.5% nebulizer solution Commonly known as: Proventil, Ventolin Dose: 2.5 mg 2.5 mg, Nebulization, EVERY 6 HOURS NEEDED, Dilute with 2.5 mL saline before nebulizing. atorvaSTATin 80 MG tablet Commonly known as: Lipitor Dose: 80 mg 80 mg, Oral, EVERY EVENING budesonide-formoterol 160-4.5 MCG/ACT aerosol inhaler Commonly known as: Symbicort Dose: 2 Puff 2 Puffs, Inhalation, 2 TIMES DAILY clopidogrel 75 MG tablet Commonly known as: Plavix Dose: 1 Tablet 1 Tablet, Oral, EVERY AFTERNOON escitalopram 10 MG tablet Commonly known as: Lexapro Dose: 10 mg 10 mg, Oral, EVERY AFTERNOON indomethacin 25 MG capsule Commonly known as: Indocin Dose: 25 mg 25 mg, Oral, 3 TIMES DAILY NEEDED, Take with food or milk. insulin aspart 100 UNIT/ML pen injection Commonly known as: NovoLOG Inject 10 units under the skin three times a day before meals. Also use sliding scale before meals and bedtime: 1 unit if BG between 250-300, inject 2 units if BG between 301-350, inject 3 units if between 351-400, inject 4 units if BG between 400-450, don't take more than 4 units at bedtime for diabetes. Jardiance 25 MG Tablet Generic drug: empagliflozin Dose: 25 mg 25 mg, Oral, ONCE DAILY Lantus 100 UNIT/ML vial injection Generic drug: insulin glargine Dose: 34 Units 34 Units, Subcutaneous, AT BEDTIME levothyroxine 100 MCG tablet Commonly known as: Synthroid Dose: 100 mcg 100 mcg, Oral, ONCE DAILY losartan 50 MG tablet Commonly known as: Cozaar Dose: 50 mg 50 mg, Oral, EVERY MORNING metoprolol succinate 25 MG 24 hour extended-release tablet Commonly known as: Toprol-XL Dose: 25 mg 25 mg, Oral, AT BEDTIME * Ozempic (1 MG/DOSE) 2 MG/1.5ML Solution Pen-injector Generic drug: Semaglutide (1 MG/DOSE) Dose: 0.25 mg 0.25 mg, Subcutaneous, ONCE WEEKLY * Ozempic (1 MG/DOSE) 2 MG/1.5ML Solution Pen-injector Generic drug: Semaglutide (1 MG/DOSE) Dose: 0.5 mg 0.5 mg, Subcutaneous, ONCE WEEKLY * Ozempic (1 MG/DOSE) 2 MG/1.5ML Solution Pen-injector Generic drug: Semaglutide (1 MG/DOSE) Dose: 1 mg 1 mg, Subcutaneous, ONCE WEEKLY Torsemide 40 MG Tablet Dose: 40 mg 40 mg, Oral, EVERY MORNING traZODone 50 MG tablet Commonly known as: Desyrel Dose: 50 mg 50 mg, Oral, AT BEDTIME vitamin D3 (cholecalciferol) 25 mcg (1000 units) tablet Dose: 1,000 Units 1,000 Units, Oral, EVERY AFTERNOON * This list has 5 medication(s) that are the same as other medications prescribed for you. Read thedirections carefully, and ask your doctor or other care provider to review them with you. You might also be taking other medications not listed above. If you have questions about any of your other medications, talk to the person who prescribed them or your Primary Care Provider. Discharge Physical Exam: Telemetry: Cardiac Rhythm: Sinus Rhythm,Heart Block Heart Block Type: 1st degree AVB Ectopy: Premature ventricular contraction(s) All lines/tubes etc other than PIV's: Physical Exam GENERAL APPEARANCE: NAD HEENT: ??Atraumatic; normocephalic; anicteric, pupils equal, round, reactive to light (PERRL); extraocular movements intact (EOMI); ??mucous membranes are moist LUNGS: CTA throughout,good expansion with good diaphragmatic excursion; clear to auscultation and percussion with no extra sounds HEART: Regular rhythm and rate; S1 and S2 ABDOMEN: soft, non-distended, Bowel sounds present in all quadrants. No tenderness, rebound, guarding, MUSCULOSKELETAL:??moving all extremities EXTREMITIES:??pedal and radial pulses are present, no LE edema NEUROLOGIC: Alert and oriented times 3; cranial nerves II-XII normal; muscle strength 5/5 SKIN: Normal without ??jaundice, rashes, moles, or suspicious lesions to exposed areas PSYCHIATRIC:??calm and cooperative ?? Total visit time: > 30 min, more than 50% spent counseling/coordinating discharge care with patient and family. Malachi Alves CNP [facility] Medicine Service Please CC/route this note in EPIC to No primary care provider on file. documented in this encounter Discharge Instructions InstructionsMoMalachi bliss APRN, CNP - 12/24/2021 9:57 AM CDT Neurology is recommending a 30 day Holter monitor that will be mailed to you Follow-up with you primary care provider as scheduled on December 27 at the [facility] Follow-up with neurology within one month Follow-up with cardiology in one month AttachmentsThe following attachments cannot be sent through Care Everywhere. Stroke, What is Ischemic ([place]izen [place])documented in this encounter Medications at Time of Discharge Medication Sig Dispensed Refills Start Date End Date empagliflozin Take 25 mg by mouth one 0 (Jardiance) 25 MG Tablet time a day. Semaglutide, 1 MG/DOSE, Inject 0.25 mg under 0 (Ozempic, 1 MG/DOSE,) 2 the skin one time a MG/1.5ML Solution week. Pen-injector Semaglutide, 1 MG/DOSE, Inject 0.5 mg under the 0 (Ozempic, 1 MG/DOSE,) 2 skin one time a week. MG/1.5ML Solution Pen-injector Semaglutide, 1 MG/DOSE, Inject 1 mg under the 0 (Ozempic, 1 MG/DOSE,) 2 skin one time a week. MG/1.5ML Solution Pen-injector indomethacin (Indocin) Take 25 mg by mouth 0 25 MG capsule three times a day as needed for Other (gout exacerbation). Take with food or milk. losartan (Cozaar) 50 MG Take 50 mg by mouth 0 tablet every morning. Torsemide 40 MG Tablet Take 40 mg by mouth 0 every morning. traZODone (Desyrel) 50 Take 50 mg by mouth at 0 MG tablet bedtime. aspirin 325 MG tablet Take 1 Tablet by mouth 30 Tablet 3 one time a day. albuterol (Proventil, Take 0.5 mL by 360 [...] Sig Dispensed Refills Start Date End Date aspirin 325 MG tablet Take 1 Tablet by mouth 30 Tablet 3 one time a day. documented in this encounter Discharge Disposition Disposition Code Departure Means Destination Home and/or Self Prison documented in this encounter Progress Notes Yesenia Peralta RN - 12/24/2021 5:00 PM CDT Care taken over at 1445. VSS-Afebrile.A/O X4. Teleneuro follow-up completed. IV Saline locked. Tele monitor reinitiated after coming back from brain MRI. Patient discharged home with . Yesenia Peralta RN Yesenia Peralta RN - 12/24/2021 5:00 PM CDT Nursing Discharge Note Vitals: BP: (!) 157/72, Temp: 36.5 ??C (97.7 ??F) Oral, Pulse: 67, Resp: 18, SpO2: 97 % Patient discharged to home at 6:08 PM via per wheelchair. Copy of AVS given to patient: yes. Patient accompanied by . Valuables, personal belongings, medical equipment and medications returned to patient at discharge: Yes. Escorted to the hospital exit by ALLEY Patterson and assisted to their vehicle. Yesenia Peralta RN Estelle Franco PharmD - 12/24/2021 3:59 PM CDT [employer] Medication History obtained by: Estelle Franco PharmD Home medication list updated using: [employer] med list, patient, spouse (Azra- [phone]), Outpatient Pharmacy ([facility]) Faxed Medication List and Care Everywhere (Organization: [facility]) Spoke with the patient? Yes Name of medications removed and removal reason: Trulicity- patient taking Ozempic instead Number of medications adjusted on profile: 5 Name of medications adjusted: Indomethacin 25 mg by mouth three times daily ADJUSTED TO: 25 mg by mouth three times daily as needed for gout exacerbation Novolog: [facility] directions [facility] Lantus insulin: 28 units under the skin at bedtime ADJUSTED TO: 34 units under the skin at bedtime Torsemide 20 mg every morning ADJUSTED TO: 40 mg every morning Trazodone 50 mg by mouth at bedtime as needed for sleep ADJUSTED TO: take 50 mg at bedtime Number of High alert medications added, removed, or adjusted: 2 High alert medications added, removed, or adjusted during medication history: Insulin Number of minutes for this reconciliation: 60 Recommendations/other information: Patient requested I call his spouse Azra to update his medication list as he is not familiar with all of his medications and she assists with medication management. Patient recently started taking Ozempic and has completed 2 of 4 weeks of the 0.25 mg weekly dose (takes on Mondays). Patient was unableto clearly verbalize current Novolog dose (takes with meals and sliding scale), updated Novolog directions using [facility] instructions from faxed medication list. Patient is taking Sympicort as needed, but per spouse should be taking scheduled, left on list as scheduled for now. Prior to Admission Medications Prescriptions Last Dose Informant Patient Reported? Taking? Semaglutide, 1 MG/DOSE, (Ozempic, 1 MG/DOSE,) 2 MG/1.5ML Solution Pen-injector 12/17/2021 at has had two doses of Ozempic so far Spouse/Significant Other Yes Yes Sig: Inject 0.25 mg under the skin one time a week. Note (12/24/2021): Takes on Mondays Semaglutide, 1 MG/DOSE, (Ozempic, 1 MG/DOSE,) 2 MG/1.5ML Solution Pen-injector hasn't started yet Spouse/Significant Other Yes No Sig: Inject 0.5 mg under the skin one time a week. Semaglutide, 1 MG/DOSE, (Ozempic, 1 MG/DOSE,) 2 MG/1.5ML Solution Pen-injector hasn't started yet Spouse/Significant Other Yes No Sig: Inject 1 mg under the skin one time a week. Torsemide 40 MG Tablet 12/23/2021 at AM Spouse/Significant Other Yes Yes Sig: Take 40 mg by mouth every morning. albuterol (Proventil, Ventolin) (5 MG/ML) 0.5% nebulizer solution PRN Spouse/Significant Other No Yes Sig: Take 0.5 mL by nebulization every six hours as needed for Wheezing or Shortness of Breath. Dilute with 2.5 mL saline before nebulizing. albuterol HFA (Proair HFA, Ventolin HFA) 108 (90 Base) MCG/ACT inhalation aerosol PRN Spouse/Significant Other Yes Yes Sig: INHALE 2 PUFFS BY INHALATION EVERY 6 HOURS NEEDED FOR SHORTNESS OF BREATHSHAKE WELL (FORIMMEDIATE RELIEF). atorvaSTATin (Lipitor) 80 MG tablet 12/22/2021 at PM Spouse/Significant Other Yes Yes Sig: Take 80 mg by mouth every evening. budesonide-formoterol (Symbicort) 160-4.5 MCG/ACT aerosol inhaler Unknown at Unknown time Spouse/Significant Other Yes Yes Sig: Inhale 2 Puffs into the lungs two times a day. clopidogrel (Plavix) 75 MG tablet 12/23/2021 at afternoon Spouse/Significant Other Yes Yes Sig: Take 1 Tablet by mouth every afternoon. empagliflozin (Jardiance) 25 MG Tablet 12/23/2021 at AM Spouse/Significant Other Yes Yes Sig: Take 25 mg by mouth one time a day. escitalopram (Lexapro) 10 MG tablet 12/23/2021 at afternoon Spouse/Significant Other Yes Yes Sig: Take 10 mg by mouth every afternoon. indomethacin (Indocin) 25 MG capsule PRN Spouse/Significant Other Yes Yes Sig: Take 25 mg by mouth three times a day as needed for Other (gout exacerbation). Take with food or milk. insulin aspart (NovoLOG) 100 UNIT/ML pen injection Past Week at Unknown time Retail Pharmacy Yes Yes Sig: Inject 10 units under the skin three times a day before meals. Also use sliding scale before meals and bedtime: 1 unit if BG between 250-300, inject 2 units if BG between 301-350, inject 3 units if between 351-400, inject 4 units if BG between 400-450, don't take more than 4 units at bedtime for diabetes. insulin glargine (Lantus) 100 UNIT/ML vial injection Past Week at Unknown time Patient Yes Yes Sig: Inject 34 Units under the skin at bedtime. levothyroxine (Synthroid) 100 MCG tablet 12/23/2021 at AM Spouse/Significant Other Yes Yes Sig: Take 100 mcg by mouth one time a day. losartan (Cozaar) 50 MG tablet 12/23/2021 at AM Spouse/Significant Other Yes Yes Sig: Take 50 mg by mouth every morning. metoprolol succinate (Toprol-XL) 25 MG 24 hour extended-release tablet Past Week at PM Spouse/Significant Other Yes Yes Sig: Take 25 mg by mouth at bedtime. traZODone (Desyrel) 50 MG tablet 12/22/2021 at bedtime Spouse/Significant Other Yes Yes Sig: Take 50 mg by mouth at bedtime. vitamin D3, cholecalciferol, 25 mcg (1000 units) tablet 12/23/2021 at afternoon Spouse/Significant Other Yes Yes Sig: Take 1,000 Units by mouth every afternoon. Facility-Administered Medications: None If questions arise, please call the central pharmacy. Thank you, Estelle Franco, PharmColeman 12/24/2021, 3:59 PM uLiz Washington MD - 12/24/2021 3:46 PM CDT [facility] NEUROVASCULAR SUMMARY Beth Duran 1945 Date of service 12/24/2021 The type of service provided: Telehealth visit conducted via interactive videoconference. The time the service began and the time the service ended: [id number]. A description of the provider???s basis for determining that telemedicine is an appropriate and effective means for delivering service to the recipient: Defined by policy and procedure documents. The mode of transmission of the telemedicine service: Interactive videoconference. The location of the originating and the distant sites: Originating Site (Patient Location): [facility] Distant Site (Provider Site): [place], [place]. This is a 76 year old male who was admitted to [facility] for ischemic strokes in multiple vascular territories. Because symptoms had completely resolved he was deemed ineligible for acute thrombolytic therapy. He continues to be asymptomatic. Evaluations included MRI brain: ??Foci of subacute infarct in multiple vascular distributions. CTA head/neck: 50% narrowing at the takeoff of the right ICA and distal right common carotid artery.No hemodynamically significant stenosis in the left ICA with plaque at the bulb. Patent cerebral vasculature. TTE: Normal left ventricular size, normal systolic performance, LVEF 55%. Frequent ectopy may make EF estimate less accurate. Moderate concentric left ventricular hypertrophy. No significant valvular heart disease. Mild biatrial enlargement. No shunting at the atrial septal level however, no bubble study performed. Lipids reviewed. A1c reviewed. Vitals: 12/24/21 1510 BP: (!) 151/78 Pulse: Temp: 36.4 ??C (97.5 ??F) TempSrc: Oral Resp: 18 Height: Weight: SpO2: 97% BMI (Calculated): GEN: NAD. CARDIOVASCULAR: Sinus on monitor. NEUROLOGICAL: NIHSS 0. Admission modified [place] Scale: 1 Discharge modified Tracy Scale: 1 Stroke diagnosis, causation, and risk factor profile and plan: RISK FACTOR Modification/Education: ?? Hypertension: Goal < 130/80. ?? Hyperlipidemia: LDL goal < 70. ?? Smoking Status: Former smoker. ?? Diabetes: A1c goal of < 7%. ?? Diet: Mediterranean. ?? Exercise: Daily aerobic > 30 minutes as tolerated. Assessment: 1) Diagnosis: Embolic ischemic strokes. 2) Cause: Embolic strokes of undetermined source. 3) Risk factor profile: HTN, lipid disorder, DM2, history of TIA, cardiomyopathy, silent cerebrovascular disease/lacunar infarcts. 4) Comorbidities: Chronic kidney disease. Recommendations for discharge: ASA 325 mg daily x30 days. Clopidogrel 75 mg x30 days. *If possible please check P2Y12 level. If not efficacious, he should be on ASA and stop clopidogrel. If efficacious, he can continue on clopidogrel. *Anticoagulation indicated only if embolic source is identified. Atorvsatatin 80 mg daily. Therapies as indicated. Prevention strategies as above. 30-day extended cardiac monitoring as outpatient to evaluate for thrombogenic arrhythmia. If negative, can consider insertable cardiac monitoring (LINQ). Follow up with neurology as outpatient. Luiz Washington MD [facility] Telestroke Counseling/Coordination of care 20 minutes / Total time 35 minutes Tammy Lorenz MA - 12/24/2021 11:31 AM CDT 12/24/2021 OCCUPATIONAL THERAPY Tammy Lorenz MA, OTR/L ACUTE CARE INITIAL EVALUATION Evaluation Date: 12/24/2021 Admission Date: 12/23/2021 Admission Diagnosis: TIA (transient ischemic attack) [G45.9] Elevated troponin [R77.8] Transient ischemic attack [G45.9] Treatment Diagnosis: Impaired mobility and ADL Pertinent Medical/Surgical History: Patient Active Problem List Diagnosis ??? Acute on chronic heart failure with preserved ejection fraction (HFpEF) (HCC) ??? Stage 3b chronic kidney disease (HCC) ??? Moderate asthma with acute exacerbation ??? Acute respiratory failure with hypoxia (HCC) ??? Essential hypertension ??? Insulin dependent type 2 diabetes mellitus (HCC) ??? Diabetic neuropathy (HCC) ??? Type 2 diabetes mellitus with hyperglycemia, with long-term current use of insulin (HCC) ??? Elevated troponin level ??? TIA (transient ischemic attack) ??? Chronic heart failure with preserved ejection fraction (HFpEF) ([facility]) Procedures/Diagnostics Affecting Therapy: Hx of CHF Barriers to Learning: Pain Fatigue Precautions: ?? Fall Risk SUBJECTIVE I'm fine. I'm ready to go home. Patient???s Goal(s): to go home. Pain: (0-10 scale if able) Pt rated chronic R knee pain, is supposed to be having knee surgery in a couple weeks. Current Living Situation/Social History: Patient lives with spouse in a one level home with a basement, flush entry in his cabin up here.. Bathroom is set up with a tub/shower combo. Pt's main home is a 2 level home with 4 steps to enter and then full flight to reach bedroom level. Pt has tub/shower combo. Functional Level Prior to Admit: Patient independent in ADL/IADL.. Durable Medical Equipment (DME)/Adaptive Equipment Owned: Front wheeled walker. OBJECTIVE Observation/Significant Vitals: Pt seated on EOB upon arrival. Strength/Range of Motion Assessment: UE AROM: Right AROM Left AROM ?? WFL ?? WFL UE Strength: Right Strength Left Strength ?? 4/5 throughout UE ?? 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 Activities of Daily Living: ?? Pt agreeable for tx. Pt did don/doff robe independent. Pt did don/doff slipper socks independently. Pt sit to stand with SBA. Pt ambulated to bathroom with supervision. Pt completed toileting independently. Stood at sink, washed hands independently. Discussed home set up and situation. Pt states no concerns, feels safe to return home. Cognition: Needs further assessment Other Assessments: ?? Visual/Perception: pt admits to field cuts yesterday, but report no concerns today. Gross assessment WNL, saccades and convergence WNL. , Sensation: pt states no changes/concerns and Edema: none noted Patient/Caregiver Education: The patient received verbal information regarding: ?? Role of occupational therapy ?? Goals with occupational therapy ?? Discharge planning and recommendations The opportunity to ask questions was offered. The patient stated understanding of the education . ASSESSMENT/PROGNOSIS Pt referred for decreased ADLs following his recent admission for TIA. Pt has seemingly returned to PLOF. No gross deficits noted. Pt able to demo basic cares independently. Pt hopes to DC home later today, agree to plan. DC OT. Primary Barrier to Discharge Home: ?? No anticipated barriers Additional Barriers to Discharge Home: ?? No anticipated barriers Recommendations for Discharge: Home Anticipated DME/Adaptive Equipment Needs for Discharge: Will continue to assess Goals to be met by (date): 12/24/21: ?? Patient will complete upper body dressing independent ?? Patient will complete lower body dressing independent Rehab Potential: Excellent PLAN OF CARE Interdisciplinary Communication: Evaluation, goals, and plan of care discussed with nursing, mental health case manager/business continuity planner and PT. Frequency of Occupational Therapy Recommended: Evaluation Only Planned interventions may consist of any combination of the following: ?? ADL retraining Duration of Services: Acute care Occupational Therapy will continue until patient has met prior level of function, safety/independence, or is discharged from the facility. OT Total Treatment Time: 20min Evaluation Low - Complexity (04907) Tammy Lorenz MA, OTR/L WinYu mcfarlane PT - 12/24/2021 11:12 AM CDT 12/24/2021 PHYSICAL THERAPY Yu Pike, BETO ACUTE CARE INITIAL EVALUATION Evaluation Date: 12/24/2021 Admission Date: 12/23/2021 Admission Diagnosis: TIA (transient ischemic attack) [G45.9] Elevated troponin [R77.8] Transient ischemic attack [G45.9] Treatment Diagnosis: Decreased activity tolerance, Decreased activities of daily living (ADL), Impaired mobility and ADL and Impaired mobility Pertinent Medical/Surgical History: Principal Problem: TIA (transient ischemic attack) Active Problems: Stage 3b chronic kidney disease (HCC) Essential hypertension Type 2 diabetes mellitus with hyperglycemia, with long-term current use of insulin (HCC) Elevated troponin level Chronic heart failure with preserved ejection fraction (HFpEF) ([facility]) Procedures/Diagnostics Affecting Therapy: Barriers to Learning: ?? None Precautions: ?? None SUBJECTIVE Admitted with onset of right sided weakness and vision changes. Symptoms resolved in the ED Patient???s Goal(s): want to go home Pain: (0-10 scale if able) Indicated having some right knee pain, but this is not new . I have a meniscus problem Current Living Situation/Social History: Patient lives with spouse in a home Functional Level Prior to Admit: Patient at baseline, does not use an assistive device. I can walk around the mall. Stated he has had a balance issue for couple of years, but does not feel he wants to use an AD. . Durable Medical Equipment Owned: I have canes and walker OBJECTIVE Cognition: Alert , Oriented and Cooperative Observation/Significant Vitals: On room air Strength/Range of Motion Assessment: No localized areas of weakness Functional Mobility Assessment: Supine<>Sit: ind Sit<>Stand: SBA Bed<>Chair: SBA Gait: Observed to walk back/forth to the bathroom couple of times Stairs: NA 1055: In bed upon PT arrival. On room air. Alert, conversing freely and appropriately. Reported back to my normal. No strength/coordination deficits noted. Walked back/forth to the bathroom, sittingon the toilet, couple of times with intact stability. Did own bathroom hygiene. Admits that he does have some falls, but one was related to ice and the other was on steps. Denied dizziness, lightheadedness nor SOB. When can I go home Balance Assessment: ??? Sitting: Good ??? Standing: Good Neurological Assessment: NA Additional Special Tests: NA Patient/Caregiver Education: Caregiver(s) is/are not present. The patient received verbal information regarding weight bearing status, importance of activity, energy conservation, fall risk, effects of bed rest, role of therapy, discharge planning process and therapy goals.The opportunity to ask questions was offered. The patientstated understanding of and demonstrated knowledge of the education. ASSESSMENT/PROGNOSIS Patient reported that he is back to normal. Primary barrier to Discharge Home: ?? No anticipated barriers Additional barriers to Discharge Home: ?? No anticipated barriers Recommendations for Discharge: Home with caregiver / Family support Anticipated DME Needs for Discharge: no gait device Goals to be met by discharge (date) Bed Mobility/Rolling ind Supine <-> Sit ind Sit <-> Stand ind Transfer ind with No assistive device with independent Ambulate 25- 50 feet with No assistive device with modified independence Rehab Potential: Good PLAN OF CARE Interdisciplinary Communication: Evaluation, goals, and plan of care discussed with nursing, physician/advanced practice provider andcase manager of corporate/business continuity planner. Frequency of Physical Therapy Recommended: Evaluation Only Planned interventions may consist of any combination of the following: ??? Therapeutic Exercise (strength/range of motion) ??? Therapeutic Activities (transfer training/functional mobility) ??? Gait Training ??? Neuromuscular Re-education ??? Patient/Caregiver Education ??? Home Exercise Program Duration of Services: Acute care Physical Therapy will continue until patient has met prior level offunction, safety/independence, or is discharged from the facility. PT Total Treatment Time: 20 minutes ?? Evaluation Low - Complexity (20994) Yu Pike PT Philly Crain MA, CCC/DREDGE OPERATOR - 12/24/2021 9:24 AM CDT DREDGE OPERATOR COURTESY NOTE Orders received for DREDGE OPERATOR to eval and treat per stroke assessment protocol. Pt admitted with right armweakness and vision changes, which have since fully resolved. Pt did not have any speech or languagesymptoms. He is communicating at baseline. Able to participate in conversational speech with no expressive or receptive language difficulties. Speech production is clear. The pt passed the nursing dysphagia screen and is tolerating regular food textures and thin liquids without difficulty. No further f/u with speech pathology as communication and swallowing are at baseline with no deficits. Philly Crain MA, CCC/DREDGE OPERATOR documented in this encounter H&P Notes Holly Owen MD - 12/24/2021 2:29 AM CDT 12/24/2021 HOSPITALIST ADMISSION NOTE MD Beth Haleller Admission Date & Time: 12/23/2021 11:16 PM Primary Care Provider / Referring Physician: No primary care provider on file. History and Physical Chief Complaint: 76 year old male presents with right arm weakness and visual loss. Patient Active Problem List Diagnosis Date Noted ??? Elevated troponin level 12/24/2021 ??? TIA (transient ischemic attack) 12/24/2021 ??? Chronic heart failure with preserved ejection fraction (HFpEF) ([facility]) 12/24/2021 ??? Acute on chronic heart failure with preserved ejection fraction (HFpEF) ([facility]) 02/25/2021 ??? Stage 3b chronic kidney disease ([facility]) 02/25/2021 ??? Moderate asthma with acute exacerbation 02/25/2021 ??? Acute respiratory failure with hypoxia ([facility]) 02/25/2021 ??? Essential hypertension 02/25/2021 ??? Insulin dependent type 2 diabetes mellitus ([facility]) 02/25/2021 ??? Diabetic neuropathy ([facility]) 02/25/2021 ??? Type 2 diabetes mellitus with hyperglycemia, with long-term current use of insulin ([facility]) 02/25/2021 HPI: This 76 yo male with a PMH significant for CKD-3b, asthma, HFpEF, hyperlipidemia, HTN, hypothyroidism and DM-2 on insulin with prior episodes of TIA-like symptoms presented to the ER via EMS afterhe experienced about 30 minutes of visual field deficit and right arm and leg weakness the evening [employer]. He had been feeling fine throughout the day. As he was just watching TV he felt like his heart was beating funny. He stood up to get a drink, spun around and collapsed to the floor striking his right elbow, shoulder, head and upper back. No LOC. He was helped to the couch by his as he was not coordinated enough to get himself up. He then noted that he could not move his right arm and his right leg was weak. This lasted for about 30 minutes but by the time he arrived in the ER his symptoms were essentially resolved. His evaluation in the ER has not revealed any acute deficits in imaging or labs other than an elevated troponin so he is placed in observation now for continued evaluation and mo nitoring. Past Medical History: Diagnosis Date ??? Asthma ??? Bladder cancer (HCC) ??? Chronic systolic CHF (congestive heart failure) (HCC) ??? CKD (chronic kidney disease) ??? Dyslipidemia ??? Gout ??? Hypertension ??? Hypothyroidism ??? Stroke (HCC) ??? Type 2 diabetes mellitus (HCC) Allergies Allergen Reactions ??? Amlodipine Dizziness ??? Doxycycline RASH ??? Bactrim [Sulfamethoxazole W-Trimethoprim] Other ??? Penicillins Hives ??? Sulfa Drugs Other Prior to Admission medications Medication Sig Start Date End Date Taking? Authorizing Provider empagliflozin (Jardiance) 25 MG Tablet Take 25 mg by mouth one time a day. Abstract, ProviderMD Semaglutide, 1 MG/DOSE, (Ozempic, 1 MG/DOSE,) 2 MG/1.5ML Solution Pen-injector Inject 0.25 mg under the skin one time a week. Abstract, ProviderMD Semaglutide, 1 MG/DOSE, (Ozempic, 1 MG/DOSE,) 2 MG/1.5ML Solution Pen-injector Inject 0.5 mg under the skin one time a week. Abstract, ProviderMD Semaglutide, 1 MG/DOSE, (Ozempic, 1 MG/DOSE,) 2 MG/1.5ML Solution Pen-injector Inject 1 mg under theskin one time a week. Abstract, ProviderMD indomethacin (Indocin) 25 MG capsule Take 25 mg by mouth three times a day with meals. Take with food or milk. Abstract, ProviderMD dulaglutide (Trulicity) 0.75 MG/0.5ML pen injection Inject 0.75 mg under the skin one time a week. Abstract, ProviderMD albuterol (Proventil, Ventolin) (5 MG/ML) 0.5% nebulizer solution Take 0.5 mL by nebulization every six hours as needed for Wheezing or Shortness of Breath. Dilute with 2.5 mL saline before nebulizing.02/26/21 Jill Baugh MD albuterol HFA (Proair HFA, Ventolin HFA) 108 (90 Base) MCG/ACT inhalation aerosol INHALE 2 PUFFS BY INHALATION EVERY 6 HOURS NEEDED FOR SHORTNESS OF BREATHSHAKE WELL (FOR IMMEDIATE RELIEF). Abstract, Provider, atorvaSTATin (Lipitor) 80 MG tablet Take 80 mg by mouth every evening. Abstract, Provider, budesonide-formoterol (Symbicort) 160-4.5 MCG/ACT aerosol inhaler Inhale 2 Puffs into the lungs two times a day. 06/30/20 Abstract, ProviderMD vitamin D3, cholecalciferol, 25 mcg (1000 units) tablet Take 1,000 Units by mouth every afternoon. Abstract, ProviderMD clopidogrel (Plavix) 75 MG tablet Take 1 Tablet by mouth one time a day. 04/29/16 Abstract, ProviderMD escitalopram (Lexapro) 10 MG tablet Take 10 mg by mouth every afternoon. 04/28/18 Abstract, ProviderMD insulin aspart (NovoLOG) 100 UNIT/ML pen injection Inject 11 Units under the skin three times a day with meals. 02/22/21 Abstract, ProviderMD insulin glargine (Lantus) 100 UNIT/ML vial injection Inject 28 Units under the skin at bedtime. 02/22/21 Abstract, ProviderMD levothyroxine (Synthroid) 100 MCG tablet Take 100 mcg by mouth one time a day. 01/30/21 Abstract, ProviderMD losartan (Cozaar) 25 MG tablet Take 50 mg by mouth one time a day. 02/22/21 02/22/22 Abstract, ProviderMD metoprolol succinate (Toprol-XL) 25 MG 24 hour extended-release tablet Take 25 mg by mouth at bedtime. 02/22/21 Abstract, ProviderMD torsemide (Demadex) 20 MG tablet Take 20 mg by mouth one time a day. 02/22/21 Abstract, ProviderMD traZODone (Desyrel) 100 MG tablet Take 50 mg by mouth at bedtime as needed for Sleep. 02/22/21 Abstract, ProviderMD Past Surgical History: Procedure Laterality Date ??? CATARACT REMOVAL Left ??? CYSTOSCOPY 05/22/2016 removal of tumor ??? CYSTOTOMY,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 ??? LASER ENUCLEATION PROSTATE 08/28/2016 ??? TONSILLECTOMY ??? VASECTOMY Family History Problem Relation Age of Onset ??? Hypertension Mother ??? Depression Father ??? Cardiovascular Disease Father of CT ??? Asthma Sister ??? Asthma Brother ??? Depression Brother ??? Asthma Son He indicated that his mother is . He indicated that his father is . He indicated that his sister is alive. He indicated that his brother is alive. He indicated that his son is alive. Social History Social History Narrative , lives with his in their own home in [place]. They have 2 biological daughters, an adopted daughter and an adopted son and 9 grandchildren. 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 They have a [place] home near [place]. 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 Review of Systems Constitutional: Positive for fatigue. Negative for activity change, appetite change, chills and fever. Kemp more tired than usual the day of symptoms. HENT: Positive for dental problem. Negative for congestion, rhinorrhea, sore throat and trouble swallowing. Front teeth fell out. Eyes: Positive for visual disturbance. Lost half his vision for 30 minutes. Respiratory: Negative for cough and shortness of breath. No increased asthma symptoms. Cardiovascular: Positive for palpitations. Negative for chest pain and leg swelling. Gastrointestinal: Negative for abdominal pain, diarrhea, nausea and vomiting. Genitourinary: Negative for dysuria. Musculoskeletal: Positive for arthralgias. Negative for back pain and gait problem. Torn meniscus right knee. Skin: Negative for rash. Neurological: Positive for weakness. Negative for dizziness, speech difficulty and headaches. Psychiatric/Behavioral: Negative for behavioral problems, confusion and decreased concentration. Physical Exam: Vitals: 12/24/21 0203 BP: (!) 159/68 Pulse: 56 Temp: 36.8 ??C (98.3 ??F) TempSrc: Oral Resp: 16 Height: 1.88 m (6' 2) Weight: 99.2 kg (218 lb 11.1 oz) SpO2: 95% BMI (Calculated): 28.08 Body mass index is 28.08 kg/m??. Physical Exam Vitals and nursing note reviewed. Constitutional: General: He is not in acute distress. Appearance: He is well-developed and well-groomed. He is not ill-appearing. Comments: Resting on the ER cart, appears comfortable. HENT: Head: Normocephalic and atraumatic. Nose: No rhinorrhea. Mouth/Throat: Mouth: Mucous membranes are moist. Comments: Some teeth missing and some malaligned. Eyes: Extraocular Movements: Extraocular movements intact. Conjunctiva/sclera: Conjunctivae normal. Pupils: Pupils are equal, round, and reactive to light. Cardiovascular: Rate and Rhythm: Normal rate and regular rhythm. Heart sounds: Heart sounds are distant. No murmur heard. Pulmonary: Effort: Pulmonary effort is normal. No respiratory distress. Breath sounds: Wheezing present. No rhonchi or rales. Comments: Few end-expiratory wheezes. Abdominal: General: Abdomen is flat. Bowel sounds are normal. Palpations: Abdomen is soft. Tenderness: There is no abdominal tenderness. Musculoskeletal: General: No swelling or tenderness. Cervical back: Normal range of motion and neck supple. No muscular tenderness. Right lower leg: No edema. Left lower leg: No edema. Lymphadenopathy: Cervical: No cervical adenopathy. Skin: General: Skin is warm and dry. Findings: Lesion present. Comments: Skin tears right elbow and right upper back. Neurological: General: No focal deficit present. Mental Status: He is alert and oriented to person, place, and time. Cranial Nerves: Cranial nerves are intact. Motor: Motor function is intact. Psychiatric: Attention and Perception: Attention normal. Mood and Affect: Mood and affect normal. Speech: Speech normal. Behavior: Behavior is cooperative. Cognition and Memory: Cognition and memory normal. Comments: Very talkative. NIHSS = 0. Labs: Recent Labs 12/23/21 2352 WBC 9.1 HGB 12.8* PLTS 201 INR 1.0 Recent Labs 12/23/21 2352 NA 139 K 4.2 CL 105 BUN 36* CREAT 1.58* GLUC 113* CA 9.3 Imaging: reviewed.by me. CT Head and CTA Head and Neck without acute abnormalities per ER MD report. EKG: reviewed. Sinus rhythm with 1st degree A-V block with frequent Premature ventricular complexes in a pattern ofbigeminy Pulmonary disease pattern Left anterior fascicular block Prolonged QT Abnormal ECG When compared with ECG of 25-FEB-2021 23:08, Premature ventricular complexes are now Present Nonspecific T wave abnormality no longer evident in Inferior leads Assessment and Plan: Active Hospital Problems Elevated troponin level - no chest pain but felt palpitations and collapsed so may have been dysrhythmia. Given ASA, continue ASA and Plavix. Follow serial troponin levels. If next troponin more elevated will start heparin drip but with no chest pain this may be NSTEMI Type II due to CHF hx. Check echo per stroke protocol and due to elevated troponin. 1TIA (transient ischemic attack) - seen by stroke neurology who recommends telemetry, MRI, EEG, echo, therapy evaluations. Stroke neurology to follow-up after test results returned. Chronic heart failure with preserved ejection fraction (HFpEF) (HCC) - no increased dyspnea or edema. Troponin elevated as above. Continue usual medications of ASA, Lipitor, Plavix, losartan, metoprolol and torsemide. Type 2 diabetes mellitus with hyperglycemia, with long-term current use of insulin (HCC) - checks his glucose levels 4-5 times per day and has insulin SS and basal. Recently started Ozempic but has not noted improvement yet. Check HgbA1C and adjust therapy as indicated. Essential hypertension - continue losartan and metoprolol. No prn medications unless BP > 180/100 for permissive HTN. Stage 3b chronic kidney disease (HCC) - at his baseline. Follow with diuretic use. Holly Owen MD documented in this encounter Consult Notes Estelle Rob APRN, CNP - 12/24/2021 2:54 PM CDTAssociated Order(s): IP CONSULT TO CARDIOLOGY Cardiology Consultation Site: [facility] Chief Complaint: Chief Complaint Patient presents with ??? Cerebral Vascular Accident History of Present Illness: Beth Duran is a pleasant 76 year old whom presented yesterday evening around midnight for evaluation of CVA type symptoms. He is seen today at the request of Malachi Alves APRN, CNP for troponin elevation. Yesterday at home around 2130 patient was experiencing palpitations though presently he notes these were not out of the ordinary and he states I've had those (palpitations) since I was a kid.There is mention that he suddenly collapsed to the floor per ER notes though Beth himself denies this to a degree. Per ER notes, helped him up, he was watching TV then noted a visual field cutand could not lift his right arm. Beth also offers he had trouble moving his right leg. By time Lawrence evaluation his symptoms resolved. STAT CT of head showed no acute intracranial process though MRIof brain just today showed subacute infarct in multiple territories likely greater than 24 hours old. Note he has prior CVA history and does take plavix. Troponin was noted elevated as follows: 0.377, 0.362, 0.310. EKG shows no ischemic changes though does reveal SR with 1st degree AVB and bigeminal PVCs. Cardiac history includes HFpEF, hypertension, and frequent PVCs. Other history includes asthma, DM II, hypothyroidism, and CKD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 residence - Video start time (include am/pm designation): 2325 - Video end time (include am/pm designation): 2355 Total time spent on this entire encounter was 70 minutes with greater than 50% spent counseling/coordinating care including counseling patient and/or family regarding diagnosis and needed evaluation, communicating with other health professionals and/or family members before seeing the patient, and communicating recommendations and further care plans to the health professionals involved in this patient's care. documented in this encounter ED Notes Filemon Conrad MD - 12/24/2021 12:01 AM CDT Images from the original note were not included. [facility] Emergency Physician Note Date: 12/24/21 Patient Name: Beth Duran Chief Complaint: Chief Complaint Patient presents with ??? Cerebral Vascular Accident Patient History HPI: The patient is a 76 year old male presenting to the Emergency Department due to neurologic problem. History is obtained from the patient. The patient presents to the emergency department due to possible stroke, he arrives as a stroke alert and he was brought straight to the CT suite. The patient tells me that at about 9:30 PM this evening, he was standing up and was feeling palpitations when he suddenly collapsed to the floor. He is notsure why he collapsed to the floor. He reports that when he did collapse to the floor, he hit his head. He denies loss of consciousness or syncope. He was generally weak and his had to help him upfrom the ground. He was then watching the [employer] women's basketball tournament when he noticed that half of the television screen he could not see. In addition, he could not lift his right arm. The symptoms lasted for perhaps about 30 minutes. EMS told me that he still had a little drift in his right upper extremity when they got there although it seems to be resolved now here in the emergency department. EMS reports a normal fingerstick blood sugar in the 100s. Currently, the patient feels completelyfine. He has not been ill recently. He does take Plavix daily but no other anticoagulation. The patient denies any weakness, numbness, tingling. He reports maybe 3 or 4 episodes of TIAs in the past. Notably, when he fell, he did sustain some minor skin tears over the dorsal right elbow. His last tetanus vaccination was 2014. ROS: The patient endorses palpitations, fall, vision changes and weakness, elbow injury as noted above. They also endorse: None. They deny any fever, chills, headache, chest pain, trouble breathing, abdominal pain, vomiting, diarrhea. A full ROS was otherwise performed and noted to be negative. PMH: Past Medical History: Diagnosis Date ??? Asthma ??? Bladder cancer (HCC) ??? Chronic systolic CHF (congestive heart failure) (HCC) ??? CKD (chronic kidney disease) ??? Dyslipidemia ??? Gout ??? Hypertension ??? Hypothyroidism ??? Stroke (HCC) ??? Type 2 diabetes mellitus (HCC) PSH: No past surgical history on file. Medications: Medication List TAKE these medications Sig Dispense/Refill Start * albuterol HFA 108 (90 Base) MCG/ACT inhalation aerosol Commonly known as: Proair HFA, Ventolin HFA INHALE 2 PUFFS BY INHALATION EVERY 6 HOURS NEEDED FOR SHORTNESS OF BREATHSHAKE WELL (FOR IMMEDIATE RELIEF). Refill: 0 * albuterol (5 MG/ML) 0.5% nebulizer solution Commonly known as: Proventil, Ventolin Take 0.5 mL by nebulization every six hours as needed for Wheezing or Shortness of Breath. Dilute with 2.5 mL saline before nebulizing. Dispense: 360 mL Refill: 3 atorvaSTATin 80 MG tablet Commonly known as: Lipitor Take 80 mg by mouth every evening. Refill: 0 budesonide-formoterol 160-4.5 MCG/ACT aerosol inhaler Commonly known as: Symbicort Inhale 2 Puffs into the lungs two times a day. Refill: 0 clopidogrel 75 MG tablet Commonly known as: Plavix Take 1 Tablet by mouth one time a day. Refill: 0 escitalopram 10 MG tablet Commonly known as: Lexapro Take 10 mg by mouth one time a day. Refill: 0 insulin aspart 100 UNIT/ML pen injection Commonly known as: NovoLOG Inject 11 Units under the skin three times a day with meals. Refill: 0 Lantus 100 UNIT/ML vial injection Generic drug: insulin glargine Inject 30 Units under the skin at bedtime. Refill: 0 levothyroxine 100 MCG tablet Commonly known as: Synthroid Take 100 mcg by mouth one time a day. Refill: 0 losartan 25 MG tablet Commonly known as: Cozaar Take 25 mg by mouth one time a day. Refill: 0 metoprolol succinate 25 MG 24 hour extended-release tablet Commonly known as: Toprol-XL Take 50 mg by mouth one time a day. Refill: 0 torsemide 20 MG tablet Commonly known as: Demadex Take 40 mg by mouth two times a day. Refill: 0 traZODone 100 MG tablet Commonly known as: Desyrel Take 50 mg by mouth one time a day as needed. Refill: 0 vitamin D3 (cholecalciferol) 25 mcg (1000 units) tablet Take 1,000 Units by mouth one time a day. Refill: 0 * This list has 2 medication(s) that are the same as other medications prescribed for you. Read thedirections carefully, and ask your doctor or other care provider to review them with you. Allergies: Allergies Allergen Reactions ??? Bactrim [Sulfamethoxazole W-Trimethoprim] Other ??? Penicillins Hives ??? Sulfa Drugs Other Social History: Social History Substance and Sexual Activity Drug Use Never Physical Exam Vital Signs: Initial Vitals Most Recent Vitals Physical Exam General: Appears well nourished and well developed, in no acute distress, not ill-appearing HEENT: Normocephalic and atraumatic, pupils equal, round, and reactive to light, moist mucous membranes Cardiac: Regular sounding rate and rhythm, no murmurs, rubs, or gallops appreciated Pulmonary: Clear to auscultation bilaterally, good air movement, no wheezes or crackles Abdomen: Soft, non-distended, non-tender, no rebound or guarding Musculoskeletal: Moving all four extremities through normal range of motion except the right knee because he has a prior meniscal injury. He has no lower extremity edema. His right dorsal elbow has a couple of separate skin tears that are very superficial. Skin: Warm and well perfused Neuro: Awake, alert, oriented to person, place, and time. Normal speech without dysarthria or aphasia. CN II-XII intact. 5/5 motor strength in the BUE and BLE. Sensation to light touch intact throughout. Normal jakova-od-rpbl testing bilaterally. Psych: Appropriate mood and affect to the clinical situation NIH Stroke Scale Last Known Well Date and Time Last known well - date: 12/23/21 Last known well - time: 2129 Discovery of Stroke Symptoms Date and Time Discovery of stroke symptoms - date: 12/23/21 Discovery of stroke symptoms - time: 2129 NIH Stroke Scale Interval: Baseline (a) Level of Consciousness (1a. ): 0 - Alert, keenly responsive LOC Questions (1b. ): 0 - Answers both questions correctly LOC Commands (1c. ): 0 - Performs both tasks correctly Best Gaze (2. ): 0 - Normal (a) Visual (3. ): 0 - No visual loss (a) Facial Palsy (4. ): 0 - Normal symmetrical movements (a) Motor Arm, Left (5a. ): 0 - No drift (a) Motor Arm, Right (5b. ): 0 - No drift (a) Motor Leg, Left (6a. ): 0 - No drift (a) Motor Leg, Right (6b. ): 0 - No drift Limb Ataxia (7. ): 0* - Absent Sensory (8.): 0 - Normal. No sensory loss. (a) Best Language (9. ): 0 - No aphasia Dysarthria (10. ): 0 - Normal Extinction and Inattention (Formerly Neglect) (11. ): 0 - No abnormality Total: 0 Decision Making for Stroke Treatment Decison time to treat or not treat with Thrombolytic: 2340 Decision making rationale for stroke treatment: Symptoms all resolved, TIA. No TPA indicated. Diagnostic Studies Labs: Labs Reviewed HEMOGRAM/DIFFERENTIAL - Abnormal; Notable for the following components: Result Value HGB 12.8 (*) HCT 37.5 (*) Eosinophils Absolute 0.6 (*) All other components within normal limits BASIC METABOLIC PANEL TROPONIN I PROTIME APTT BLOOD BANK DRAW & HOLD POCT BEDSIDE GLUCOSE TESTING Imaging: CT HEAD WO IV CONTRAST (Results Pending) CT ANGIO HEAD NECK (Results Pending) MR BRAIN WO CONTRAST (Results Pending) My independent interpretation of the EKG: Normal sinus rhythm, first-degree AV block with DE interval 226 ms, PVCs present in a pattern of bigeminy, there is no acute ST segment elevation or depression. No STEMI. Emergency Department Procedures Procedures No ED procedure performed ED Course and MDM Beth Duran is a 76 year old male with a history and presentation as described above. Triage and nursing noted reviewed. On initial presentation, the patient was well appearing, in no acute distress, with vital signs unremarkable for any acute abnormalities. Based on history and examination, I do suspect TIA. The patientarrived as a stroke alert and he was brought straight to the CT table where a noncontrast CT scan ofthe brain as well as a CTA of the head and neck were obtained. Upon arriving back to the room, the patient was evaluated by myself as well as the stroke neurologist Dr. Laguna. At the time of full examination back in the room after CT imaging, the patient has an NIH stroke scale of 0 with no deficits and he feels completely back to normal. CT without contrast is unremarkable for any acute abnormalities. The CTA of his head and neck per overnight Vrad interpretation shows patent cerebral arteries, some atherosclerotic change of the intracavernous internal carotid arteries, as well as some bilateral atherosclerotic change of the internal carotid arteries and right common carotid artery with no hemodynamically significant stenosis. CBC unremarkable for acute abnormalities. Basic metabolic panel with elevated creatinine consistent with his baseline mild chronic kidney disease. INR is normal at 1.0. Troponin is notably elevated at 0.377. EKG as above shows no STEMI. The patient is being provided with a full dose of aspirin for his TIA. Dr. Laguna has recommended admission for MRI brain tomorrow to ensure there is no ischemic insult. If there is no ischemic insult,she thinks his work-up may require an EEG to ensure there is no seizure activity that might have ledto these recurrent episodes he has had. At this time, we will plan on admitting the patient to the hospital for further evaluation and management and MRI tomorrow. Medications received in the ED Medications sodium chloride 0.9% IV FLUSH (NS) SYRINGE 3 mL (has no administration in time range) sodium chloride 0.9% IV FLUSH (NS) SYRINGE 3 mL (has no administration in time range) sodium chloride 0.9% IV LINE FLUSH (NS) BAG 30 mL (has no administration in time range) aspirin chewable tablet 324 mg (has no administration in time range) iohexol (Omnipaque) 350 MG/ML 80 mL (80 mL IV Push Given 12/23/212335) sodium chloride 0.9% (NS) IV Solution for CT injector 50 mL (50 mL IV Push Given 12/23/212335) Impression (G45.9) TIA (transient ischemic attack) (primary encounter diagnosis) (R77.8) Elevated troponin Plan At this time, the patient has been admitted to the hospitalist medicine service. I discussed the case with them and they are in agreement with admission at this time for further evaluation and management. Filemon Conrad MD Emergency Medicine Filemon Conrad MD 12/24/2131 Asael Wilson HUC - 12/23/2021 11:[address] Conrad cancelled the Stroke Alert Franklyn Matson RN - 12/23/2021 11:19 PM CDT Rec'd pt in CT via stretcher, accompanied by EMS, stroke alert initiated, refer to assessment for complete details. Zaida Boland RN - 12/23/2021 11:17 PM CDT Bed: 05 Expected date: Expected time: Means of arrival: Comments: Asael Wilson HUC - 12/23/2021 11:[address] Laguna returned Dr. Conrad's page Asael Wilson [facility]UC - 12/23/2021 11:14 PM CDT Alpha paged Stroke Alert Asael Wilson [facility]UC - 12/23/2021 11:13 PM CDT EMS called a stroke Alert Asael Wilson HUC - 12/23/2021 11:13 PM CDT Overhead paged Stroke Alert Asael Wilson [facility]UC - 12/23/2021 11:13 PM CDT Called [employer] documented in this encounter Miscellaneous Notes Care Plan - Estelle Beasley RN - 12/24/2021 2:23 PM CDT A/O, SBA. VSS, ECHO completed. Currently in MRI. Neuros intact, no drift, no vision loss. Hard of hearing. Plan to discharge home today. EEG on Friday. Problem: Risk of Bleeding Goal: Absence of impaired coagulation signs and symptoms and active bleeding Outcome: Progressing Problem: Risk of Venous Thromboembolism Goal: Absence of venous thromboembolism Outcome: Progressing Problem: Discharge Planning Goal: No barriers to discharge Outcome: Progressing Problem: Cardiac/Cardiovascular Goal: Cardiovascular system functioning within defined limits Outcome: Progressing Problem: Skin Goal: Skin integrity within defined limits Outcome: Progressing Problem: Musculoskeletal Goal: Musculoskeletal system functioning within defined limits Outcome: Progressing Problem: Fall Risk Goal: Absence of falls Outcome: Progressing Problem: Risk of Pressure Injury Goal: Absence of new pressure injury Outcome: Progressing Problem: HEENT Goal: HEENT system functioning within defined limits Outcome: Progressing Patient Goals: The patient centered goal for this shift:: MRI (12/24/21 09). Evaluation of patient goal progress partially completed. Care Plan - Marialuisa Boswell RN - 12/24/2021 7:37 AM CDT Pt A&O. VSS. Seizure pads in place. SBA. Tele in place. Pt utilizes call light and makes needs known. Abrasions to left leg. Skin tear on right elbow and right upper back, both covered with mepilex. Small abrasion to left clavicle. [place]. Will go home with when medically able. BS this morning was 184, 1 unit given. Problem: Risk of Bleeding Goal: Absence of impaired coagulation signs and symptoms and active bleeding Outcome: Progressing Problem: Risk of Venous Thromboembolism Goal: Absence of venous thromboembolism Outcome: Progressing Problem: Discharge Planning Goal: No barriers to discharge Outcome: Progressing Problem: Cardiac/Cardiovascular Goal: Cardiovascular system functioning within defined limits Outcome: Progressing Problem: Skin Goal: Skin integrity within defined limits Outcome: Progressing Problem: Musculoskeletal Goal: Musculoskeletal system functioning within defined limits Outcome: Progressing Patient Goals: The patient centered goal for this shift:: sleep (12/24/21312). Evaluation of patient goal progress met. documented in this encounter Plan of Treatment Not on filedocumented as of this encounter Procedures Procedure Name Priority Date/Time Associated Comments Diagnosis TROPONIN I Routine 12/24/2021 2:35 PM Results f or this CDT procedure are i n the results section. MR BRAIN WO Routine 12/24/2021 2:03 PM TIA (transient Results for this CONTRAST CDT ischemic attack) procedure a re in the results section. GLUCOSE, METER Routine 12/24/2021 11:11 Results f or this AM CDT procedure are i n the results section. ECHO ADULT COMPLETE Routine 12/24/2021 11:05 Resu lts for this W CONTRAST AM CDT procedure are i n the results section. TROPONIN I Timed 12/24/2021 8:07 AM Results f or this CDT procedure are i n the results section. GLUCOSE, METER Routine 12/24/2021 6:32 AM Results for this CDT procedure are i n the results section. TROPONIN I Timed 12/24/2021 6:12 AM Results f or this CDT procedure are i n the results section. HEMOGLOBIN A1C Routine 12/24/2021 6:12 AM Results for this CDT procedure are i n the results section. LIPID PROFILE Routine 12/24/2021 6:12 AM Results for this CDT procedure are i n the results section. RAPID SARS-COV-2 STAT 12/24/2021 12:27 Results for this RNA (COVID-19), AM CDT procedure ar e in MOLECULAR DETECTION the resu lts section. EKG 12-LEAD STAT 12/24/2021 12:06 Results for this AM CDT procedure are i n the results section. BLOOD BANK DRAW & STAT 12/23/2021 11:52 Result s for this HOLD PM CDT procedure are i n the results section. BASIC METABOLIC STAT 12/23/2021 11:52 Results for this PANEL PM CDT procedure are i n the results section. TROPONIN I STAT 12/23/2021 11:52 Results for this PM CDT procedure are i n the results section. HEMOGRAM/DIFF STAT 12/23/2021 11:52 Results fo r this PM CDT procedure are i n the results section. PROTIME STAT 12/23/2021 11:52 Results for this PM CDT procedure are i n the results section. APTT STAT 12/23/2021 11:52 Results for this PM CDT procedure are i n the results section. MAGNESIUM STAT Add-On 12/23/2021 11:52 Results for this PM CDT procedure are i n the results section. CT ANGIO HEAD NECK STAT 12/23/2021 11:35 TIA (transient Res ults for this PM CDT ischemic attack) procedure a re in the results section. CT HEAD WO IV STAT 12/23/2021 11:34 TIA (transient Results for this CONTRAST PM CDT ischemic attack) procedure a re in the results section. documented in this encounter Results (ABNORMAL) TROPONIN I (12/24/2021 2:35 PM CDT) athologist Signature Troponin I 0.283 (H) 0.000 - 12/24/2021 [facility] 0.028 3:00 PM CDT [facility] ng/mL LABORATORY Specimen Anatomical Collection Method / Collection Time Recei pee Time (Source) Location / Volume Laterality Blood BLOOD SPECIMEN / Venipuncture / 12/24/2021 2:35 2021 2:37 Unknown Unknown PM CDT PM CDT Narrative [facility] LABORATOR Y - 12/24/2021 3:00 PM CDT Because no pediatric reference range alhaji a is published, the adult reference range will be utilized as this represents 99% of healthy adults. Malachi Alves PUMP REBUILDER, [employer] AT [employer] EC CHEMISTRY ORDERABLES Performing Organization Address City/State/ZIP Code Phon e Number [facility] [address] [address] LABORATORY MR BRAIN WO CONTRAST (12/24/2021 2:03 PM CDT) Anatomical Region Laterality Modality Head Magnetic Resonance Specimen (Source) Anatomical Collection Method Collection Time Re ceived Time Location / / Volume Laterality 12/24/2021 2:03 PM CDT Narrative 12/24/2021 2:15 PM CDT This document is currently in Final Status Exam MR BRAIN WO CONTRAST INDICATION: Neuro deficit, acute, stroke suspected; COMPARISON: CT head 12/23/2021. FINDINGS: ??Generalized cerebral and cer ebellar volume loss. Foci of T2 hyperintensity in the periventricular and subcortical deep white matter are nonspecific but most compatible with chronic small ves bren ischemic changes. Restricted diffusi on with corresponding T2 hyperintensity involving the cortex and subcortical white matter of the posterior left frontal lobe measuring 10 mm, and additional punct ate foci of restricted diffusion in the posterior right frontal and parietal lobes. Curvilinear area of restricted diffusion in the mesial left temporal lobe and anterior left temporal lobe. Paranasal s inus disease. Chronic lacunar infarcts i nferior cerebellar hemispheres. Remainder unremarkable. IMPRESSION: ??Foci of subacute infarct i n multiple vascular distributions as described above. These are likely greater than 24 hours old. Consider an embolic source. Electronically Signed: Zhang Gage MD 12/24/2021 2:15 PM Procedure Note Zhang Gage MD - 12/24/2021Forma tting of this note might be different from the original. This document is currently in Final Stat us Exam MR BRAIN WO CONTRAST INDICATION: Neuro deficit, acute, stroke suspected; COMPARISON: CT head 12/23/2021. FINDINGS: Generalized cerebral and cereb ellar volume loss. Foci of T2 hyperintensity in the periventricular and subcortical deep white matter are nonspecific but most compatible with chronic small vessel ischemic changes. Restricted diffusion with corre sponding T2 hyperintensity involving the cortex and subcortical white matter of the posterior left frontal lobe measuring 10 mm, and additional punctate foci of restricted diffusion in the posterior right frontal and parietal lobes. Curvilinear area of restricted diffusion in the mesial left temporal lobe and anterior left temporal lobe. Paranasal sinus disease. Chronic lacunar infarcts inferior cerebellar hemispheres. Remaind er unremarkable. IMPRESSION: Foci of subacute infarct in multiple vascular distributions as described above. These are likely greater than 24 hours old. Consider an embolic source. Electronically Signed: Zhang Gage MD 12/24/2021 2:15 PM Malachi Alves PUMP REBUILDER, COUNSELOR AT [employer] EC MRI ORDERABLES (ABNORMAL) GLUCOSE, METER (12/24/2021 11:11 AM CDT) P athologist Signature Glucose Meter 283 (H) 70 - 99 12/24/[address] mg/dL 11:17 AM CDT [facility] POINT OF CARE Specimen Anatomical Collection Method Collection Time Receive d Time (Source) Location / / Volume Laterality Blood BLOOD SPECIMEN / 12/24/2021 11:11 022 Unknown AM CDT 11:17 AM CDT Malachi Alves PUMP REBUILDER, COUNSELOR AT [employer] EC CHEMISTRY ORDERABLES Performing Organization Address City/State/ZIP Code Phon e Number [facility] [address] [address] POINT OF CARE ECHO ADULT COMPLETE W CONTRAST (12/24/2021 11:05 AM CDT) [facility] gist Method Time Signature RESULT [facility] XC ELERA [address] [address] ? Transthoracic Echocardiogram Report Name: BETH DURAN Aissatou ? Study Date: 12/24 ? Performing Location: [place] : 1945 ? Gender: Male Height: 72 in ? Age: 76 yrs Weight: 218 lb ?BSA: 2.2 m2 BP: 133/83 mmHg ? HR: 60 Ordering Physician: HOLLY OWEN Referring Physician: NONE Performed By: Jill Eastman Reason For Study: STROKE Interpretation Summary 1. Normal left ventricular size, normal systolic performance , LVEF 55% frequent ectopy may make EF estimate less accurate 2. Moderate concentric left ventricular hypertrophy 3. No significant valvular heart disease 4. Mild biatrial enlargement 5. No shunting at the atrial septal level however, no bubble study performed Left Ventricle The left ventricular systolic function is mildly reduced. Right Ventricle Normal right ventricular siz e, thickness and function. There is no evidence of right ventricular mass or thrombus. Atria Left atrium is mildly enlarged by volume . The right atrium is mildly enlarged. Aortic Valve The aortic valve is tricuspi d. The aortic valve is mildly sclerotic. Trace aortic insufficiency. Mitral Valve Moderate mitral valve annula r calcification. There is mild mitral regurgitation. Tricuspid Valve The tricuspid valve anatomy is normal. Pulmonic Valve Pulmonic valve not well visualized. Pericardium/Pleura There is no pericardial effusion. Vessels The aortic root is normal in size for body surface area. Septae There is no evidence of an a trial septal defect by color flow doppler but resolution does not allow assessment for a patent foramen ovale. Procedure Details A two-dimensional transthora cic echocardiogram with color flow and Doppler was performed. A contrast agent was injected intravenously to improve image resolution. MMode/2D Measurements & Calculations IVSd: 0.96 cm ?LVIDd: 5.6 cm LVPWd: 1.3 cm ?LVIDs: 4.4 cm LA dimension: 3.7 cm ? IVS/LVPW: 0.72 Ao root diam: 3.2 cm ? LAV(MOD-bp): 105.5 ml ?EDV(Teich): 153.0 ml LAV(MOD-bp) index: 47.7 ml/m 2 ?ESV(Teich): 89.2 ml LAV(MOD-sp2): 88.5 ml ?EF(Teich): 41.7 % LAV(MOD-sp4): 106.2 ml ? IVC diam: 1.6 cm ? LVOT diam: 2.2 cm ? EDV(MOD-sp4): 213.9 ml ? ESV(MOD-bp): 121.2 ml EDV(MOD-sp2): 192.6 ml ? EF(MOD-bp): 42.0 % EDV(MOD-bp): 209.1 ml ?EDV(sp2-el): 200.6 ml EDV(sp4-el): 223.5 ml ?ESV(MOD-sp2): 110.0 ml ESV(MOD-sp4): 124.0 ml ? EF(MOD-sp2): 42.9 % EF(MOD-sp4): 42.0 % ? SV(MOD-sp4): 89.9 ml ? SV(sp4-el): 98.3 ml ? RVDd (basal 4CH): 3.3 cm Time Measurements MV dec time: 0.37 sec Doppler Measurements & Calculations MV E max dariel: 120.1 cm/sec ?MV V2 max: 121.3 cm/sec MV A max dariel: 83.7 cm/sec ? MV max P.9 mmHg MV E/A: 1.4 ? MV V2 mean: 55.8 cm/sec ?MV mean P.6 mmHg ?MVA(VTI): 1.2 cm2 ? Lat Peak E' Dariel: 9.1 cm/sec ? Ao V2 max: 180.1 cm/sec Lat E/e' ratio: 13.3 ?Ao max P.0 mmHg Med Peak E' Dariel: 4.9 cm/sec ? Ao mean P.0 mmHg Med E/e' ratio: 24.5 Average E/e': 18.9 ?GENOVEVA(I,D): 1.6 cm2 ?GENOVEVA(V,D): 1.4 cm2 ? AI max dariel: 255.2 cm/sec ?LV V1 max: 69.0 cm/sec AI max P.1 mmHg ?LV V1 max P.9 mmHg AI P1/2t: 1050 msec ? LV V1 mean P.0 mmHg ?LV V1 VTI: 14.9 cm ? SV(LVOT): 55.2 ml ? GENOVEVA (I,D) indexed (cm2/m2): 0.70 ? Dimensionless Index: 0.42 ? SV-LVOT (indexed): 25.0 ? Interpreting Physician: ? Location: [place] [facility] Specimen (Source) Anatomical Location Collection Method / Collectio n Time Received Time / Laterality Volume 12/24/2021 Holly Owen MD CV ECHO PROCEDURES Performing Organization Address City/[facility]/ZIP Code Phon e Number XCELERA (ABNORMAL) TROPONIN I (12/24/2021 8:07 AM CDT) athologist Signature Troponin I 0.310 (H) 0.000 - 12/24/2021 [facility] 0.028 8:37 AM T [facility] ng/mL LABORATORY Specimen Anatomical Collection Method / Collection Time Recei pee Time (Source) Location / Volume Laterality Blood BLOOD SPECIMEN / Venipuncture / 12/24/2021 8:07 2021 8:11 Unknown Unknown AM CDT AM CDT Narrative [facility] LABORATOR Y - 12/24/2021 8:37 AM CDT Because no pediatric reference range alhaji a is published, the adult reference range will be utilized as this represents 99% of healthy adults. Holly Owen MD EC CHEMISTRY ORDERABLES Performing Organization Address City/State/ZIP Code Phon e Number [facility] [address] [address] LABORATORY (ABNORMAL) GLUCOSE, METER (12/24/2021 6:32 AM CDT) P athologist Signature Glucose Meter 184 (H) 70 - 99 12/24/2021 ST. mg/dL 6:38 AM CDT [facility] POINT OF CARE Specimen Anatomical Collection Method Collection Time Receive d Time (Source) Location / / Volume Laterality Blood BLOOD SPECIMEN / 12/24/2021 6:32 AM 12/24 6:38 Unknown CDT AM CDT Holly Owen MD EC CHEMISTRY ORDERABLES Performing Organization Address City/State/ZIP Code Phon e Number [facility] [address] [place] [address] POINT OF CARE (ABNORMAL) LIPID PANEL (12/24/2021 6:12 AM CDT) [facility] gist Method Time Signature Cholesterol 125 114 - 200 12/24/2021 ST. mg/dL 6:49 AM CDT [facility] LABORATORY HDL Cholesterol 28 (L) 40 - 60 12/24/2021 ST. mg/dL 6:49 AM CDT [facility] LABORATORY Triglycerides 156 10 - 200 12/24/2021 ST. mg/dL 6:49 AM CDT [facility] LABORATORY LDL Cholesterol, 66 mg/dL 12/24/2021 ST. Calculated 6:49 AM CDT [facility] LABORATORY Specimen Anatomical Collection Method / Collection Time Recei pee Time (Source) Location / Volume Laterality Blood BLOOD SPECIMEN / Venipuncture / 12/24/2021 6:12 2021 6:31 Unknown Unknown AM CDT AM CDT Narrative [facility] LABORATOR Y - 12/24/2021 6:49 AM CDT ?Triglyceride If patient is non-fasting, the result of the triglyceride is invalid. ?? Triglyceride Reference Ranges ?? Normal: ?10-200 mg/d L ?? Borderline High: ??150-200 mg/dL ?? High: ? 201-499 mg/d L ?? Very High: ? =500 ?mg/ dL Total Cholesterol Reference Ranges ?? Desirable: ? <200 ?mg/dL Borderline High: ?? 200-239 mg/dL High: ?>239 ?mg/ dL Calculated LDL Cholesterol Reference Ra nges ? Optimal: ?<100 ? mg/dL ? Near Optimal: ? 100-129 ??mg/ dL ? Borderline High: ??130-159 ??mg/d L ? High: ? 160-189 ? ?mg/dL ? Very High: ?>189 ? mg/dL Holly Owen MD EC CHEMISTRY ORDERABLES ABN Performing Organization Address City/[facility] Phon e Number [facility] [address] [place] [address] LABORATORY (ABNORMAL) HEMOGLOBIN A1C (12/24/2021 6:12 AM CDT) Analysis Performed At Patho logist Time Signature Hemoglobin A1c 9.6 (H) 4.0 - 5.6 12/24/2021 ST. % 7:29 AM T [facility] LABORATORY Estimated 229 mg/dL 12/24/2021 [facility] Average Glucose 7:29 AM [facility] LABORATORY Specimen Anatomical Collection Method / Collection Time Recei pee Time (Source) Location / Volume Laterality Blood BLOOD SPECIMEN / Venipuncture / 12/24/2021 6:12 2021 6:31 Unknown Unknown AM CDT AM CDT Narrative [facility] LABORATOR Y - 12/24/2021 7:29 AM CDT HGA1C Reference Ranges ??>= 6.5 ?? Diabetes* ??5.7-6.4 ??Impaired glucose tolerance ?? <5.7 ?Normal *In the absence of unequivocal hyperglyc emia, results should be confirmed by repeat testing for the diagnosis of diabetes. [place] [employer] 2018 ?? Holly Owen MD EC CHEMISTRY ORDERABLES ABN Performing Organization Address City/[facility] Phon e Number [facility] [address] [place] [address] LABORATORY (ABNORMAL) TROPONIN I (12/24/2021 6:12 AM CDT) P athologist Signature Troponin I 0.362 (H) 0.000 - 12/24/2021 [facility] 0.028 6:54 AM [facility] ng/mL LABORATORY Specimen Anatomical Collection Method / Collection Time Recei pee Time (Source) Location / Volume Laterality Blood BLOOD SPECIMEN / Venipuncture / 12/24/2021 6:12 2021 6:31 Unknown Unknown AM CDT AM CDT Narrative [facility] LABORATOR Y - 12/24/2021 6:54 AM CDT Because no pediatric reference range alhaji a is published, the adult reference range will be utilized as this represents 99% of healthy adults. Holly Owen MD EC CHEMISTRY ORDERABLES Performing Organization Address City/State/ZIP Code Phon e Number [facility] [address] [place] [address] LABORATORY RAPID SARS-COV-2 RNA (COVID-19), MOLECULAR DETECTION (12/24/2021 12:27 AM CDT) [facility] Method Time Signature SARS-CoV-2 Negative Negative/Not 12/24/2021 [facility] RNA Detected 1:13 AM CDT [facility] (COVID-19) [facility] LABORATORY Comment: SARS-CoV-2 (COVID-19) target nu cleic acids are not detected. COVID-19 can not be completely ruled out as sensitivi ty of the test depends on the timing of specimen collection and quality of the s pecimen. Specimen Anatomical Collection Method Collection Time Receive d Time (Source) Location / / Volume Laterality Swab NASAL / Unknown COVID-19 12/24/2021 12:27 12/25/19 22 Collection / AM CDT 12:31 AM CDT Unknown Narrative [facility] LABORATOR Y - 12/24/2021 1:13 AM CDT Test detects target RNA by real-time polymerase chain reaction (PCR) on the [employer] GeneXpert System. Results should be used in [...] for this test can be found at: https://www.fda.gov/medical-devices/hqhshagfn-rqybtmstqf-nozcslj-devices/emergen ni-jkh-jqflzszgdrvzah Filemon Conrad MD EC MICROBIOLOGY - GENERAL OR DERABLES Performing Organization Address City/[facility]/ZIP Code Phon e Number [place] [address] LABORATORY EKG 12-LEAD (12/24/2021 12:06 AM CDT) athologist Signature Ventricular Rate 66 BPM MUSE Atrial Rate 66 BPM MUSE P-R Interval 226 ms MUSE QRS Duration 108 ms MUSE QT 470 ms MUSE QTc 492 ms MUSE P [place] 83 degrees MUSE R [place] -52 degrees MUSE T [place] 45 degrees MUSE Specimen (Source) Anatomical Collection Method Collection Time Re ceived Time Location / / Volume Laterality 12/24/2021 12:06 AM CDT Narrative MUSE - 12/25/2021 7:38 AM CDT Confirming Doc Dhiraj Santiago MD Sinus rhythm with 1st degree A-V block w ith frequent Premature ventricular complexes in a pattern of bigeminy Left anterior fascicular block Prolonged QT Cannot rule out Anteroseptal infarct ,ag e indeterminate Abnormal ECG When compared with ECG of 25-FEB-2021 23 :08, Premature ventricular complexes are now Present Nonspecific T wave abnormality no longer evident in Inferior leads Procedure Note Dhiraj Santiago MD - 12/25/2021Format ting of this note might be different from the original. Confirming Doc Dhiraj Santiago MD Sinus rhythm with 1st degree A-V block w ith frequent Premature ventricular complexes in a pattern of bigeminy Left anterior fascicular block Prolonged QT Cannot rule out Anteroseptal infarct ,ag e indeterminate Abnormal ECG When compared with ECG of 25-FEB-2021 23 :08, Premature ventricular complexes are now Present Nonspecific T wave abnormality no longer evident in Inferior leads Filemon Conrad MD IP ECG ORDERABLES Performing Organization Address City/[facility]/ZIP Code Phon e Number MUSE MAGNESIUM (12/23/2021 11:52 PM CDT) athologist Signature Magnesium 2.0 1.8 - 2.7 12/24/2021 [facility] mg/dL 12:52 AM CDT [facility] LABORATORY Specimen Anatomical Collection Method / Collection Time Recei pee Time (Source) Location / Volume Laterality Blood BLOOD SPECIMEN / Venipuncture / 12/23/2021 11:52 12/23 Unknown Unknown PM CDT 11:57 PM CDT Filemon Conrad MD EC CHEMISTRY ORDERABLES Performing Organization Address [facility] Phon e Number [facility] [address] [place] [address] LABORATORY APTT (12/23/2021 11:52 PM CDT) P athologist Signature APTT 27 23 - 35 sec 12/24/2021 [facility] 12:10 AM T [facility] LABORATORY Specimen Anatomical Collection Method / Collection Time Recei pee Time (Source) Location / Volume Laterality Blood BLOOD SPECIMEN / Venipuncture / 12/23/2021 11:52 12/23 Unknown Unknown PM CDT 11:57 PM CDT Filemon Conrad MD EC HEMATOLOGY ORDERABLES Performing Organization Address City/[facility] Phon e Number [facility] [address] [address] LABORATORY PROTIME (12/23/2021 11:52 PM CDT) P athologist Signature INR 1.0 0.9 - 1.1 12/24/2021 [facility] 12:09 AM T [facility] LABORATORY Protime 13.4 12.0 - 14.2 12/24/2021 [facility] sec 12:09 AM T [facility] LABORATORY Specimen Anatomical Collection Method / Collection Time Recei pee Time (Source) Location / Volume Laterality Blood BLOOD SPECIMEN / Venipuncture / 12/23/2021 11:52 12/23 Unknown Unknown PM CDT 11:57 PM CDT Narrative [facility] LABORATOR Y - 12/24/2021 12:09 AM CDT Suggested therapeutic INR ranges for oral anticoagulant therapy: Category ? INR Value Prophylaxis ?2.0-3.0 Treat Thrombosis or Embolism ? 2.0-3 .0 Prosthetic Heart Valve ? 2. 5-3.5 Filemon Conrad MD EC HEMATOLOGY ORDERABLES Performing Organization Address [facility]/ZIP [facility] Phon e Number [facility] [address] [address] LABORATORY BLOOD BANK DRAW & HOLD (12/23/2021 11:52 PM CDT) P athologist Signature BB DRAW ONLY COMM 12/24/2021 ST. 12:16 AM T [facility] BLOOD BANK Comment: A specimen has been received in [facility] and is available for testing up to 3 days from draw. ??Pl ease notify Transfusion ? Services if a Type and Screen is needed. Specimen Anatomical Collection Method / Collection Time Recei pee Time (Source) Location / Volume Laterality Blood BLOOD SPECIMEN / Venipuncture / 12/23/2021 11:52 12/23 Unknown Unknown PM CDT 11:57 PM CDT Filemon Conrad MD EC BLOOD BANK ORDERABLES Performing Organization Address [facility]/ZIP Code Phon e Number [facility] [address] [place] [address] BLOOD BANK (ABNORMAL) HEMOGRAM/DIFFERENTIAL (12/23/2021 11:52 PM CDT) [facility] Method Time Signature WBC 9.1 3.2 - 12/24/2021 ST[address] 11.0 12:[address] [facility] 10*9/L [facility] LABORATORY RBC 4.37 4.14 - 12/24/2021 ST[address] 5.76 12:[address] [facility] 10*12/L [facility] LABORATORY HGB 12.8 (L) 12.9 - 12/24/2021 ST. 16.9 g/dL 12:00 AM [facility] LABORATORY HCT 37.5 (L) 38.4 - 12/24/2021 ST. 49.7 % 12:00 AM [facility] LABORATORY MCV 85.8 81.4 - 12/24/2021 ST. 99.0 fL 12:00 AM [facility] LABORATORY MCH 29.3 26.7 - 12/24/2021 ST. 33.1 pg 12:00 AM [facility] LABORATORY MCHC 34.1 31.6 - 12/24/2021 ST. 35.5 g/dL 12:00 AM [facility] LABORATORY RDW 13.1 11.3 - 12/24/2021 ST. 14.6 % 12:00 AM [facility] LABORATORY PLT 201 130 - 375 12/24/2021 ST. 10*9/L 12:00 AM [facility] LABORATORY Neutrophils % 68.6 % 12/24/2021 ST. 12:00 AM [facility] LABORATORY Lymphocytes % 15.4 % 12/24/2021 ST. 12:00 AM [facility] LABORATORY Monocytes % 7.8 % 12/24/2021 ST. 12:00 AM [facility] LABORATORY Eosinophils % 6.5 % 12/24/2021 ST. 12:00 AM [facility] LABORATORY Basophils % 1.1 % 12/24/2021 ST. 12:00 AM [facility] LABORATORY Immature 0.6 % 12/24/2021 ST. Granulocytes % 12:00 AM [facility] LABORATORY Neutrophils 6.2 1.5 - 7.6 12/24/2021 ST. Absolute 10*9/L 12:00 AM [facility] LABORATORY Lymphocytes 1.4 0.8 - 3.3 12/24/2021 ST. Absolute 10*9/L 12:00 AM [facility] LABORATORY Monocytes 0.7 0.2 - 0.9 12/24/2021 ST. Absolute 10*9/L 12:00 AM [facility] LABORATORY Eosinophils 0.6 (H) 0.0 - 0.4 12/24/2021 ST. Absolute 10*9/L 12:00 AM [facility] LABORATORY Basophils 0.1 0.0 - 0.1 12/24/2021 ST. Absolute 10*9/L 12:00 AM [facility] LABORATORY Immature 0.05 0.00 - 12/24/2021 ST. Granulocytes 0.06 12:[address] [facility] Absolute 10*9/L [facility] LABORATORY Specimen Anatomical Collection Method / Collection Time Recei pee Time (Source) Location / Volume Laterality Blood BLOOD SPECIMEN / Venipuncture / 12/23/2021 11:52 12/23 Unknown Unknown PM CDT 11:57 PM CDT Filemon Conrad MD EC HEMATOLOGY ORDERABLES Performing Organization Address [facility] Phon e Number [facility] [address] [address] LABORATORY (ABNORMAL) TROPONIN I (12/23/2021 11:52 PM CDT) P athologist Signature Troponin I 0.377 (H) 0.000 - 12/24/2021 [facility] 0.028 12:22 AM CDT [facility] ng/mL LABORATORY Specimen Anatomical Collection Method / Collection Time Recei pee Time (Source) Location / Volume Laterality Blood BLOOD SPECIMEN / Venipuncture / 12/23/2021 11:52 12/23 Unknown Unknown PM CDT 11:57 PM CDT Narrative [facility] LABORATOR Y - 12/24/2021 12:22 AM CDT Because no pediatric reference range alhaji a is published, the adult reference range will be utilized as this represents 99% of healthy adults. Filemon Conrad MD EC CHEMISTRY ORDERABLES Performing Organization Address [facility] Phon e Number [facility] [address] [address] LABORATORY (ABNORMAL) BASIC METABOLIC PANEL (12/23/2021 11:52 PM CDT) Patholo gist Method Time Signature Sodium 139 134 - 143 12/24/2021 ST. mEq/L 12:17 AM T [facility] LABORATORY Potassium 4.2 3.4 - 5.1 12/24/2021 ST. mEq/L 12:17 AM T [facility] LABORATORY Chloride 105 99 - 110 12/24/2021 ST. mEq/L 12:17 AM T [facility] LABORATORY Carbon Dioxide 20 19 - 29 12/24/2021 ST. mEq/L 12:17 AM T [facility] LABORATORY Anion Gap 14.0 3.0 - 15.0 12/24/2021 ST. mEq/L 12:17 AM [facility] LABORATORY Blood Urea 36 (H) 5 - 24 12/24/2021 ST. Nitrogen mg/dL 12:17 AM [facility] LABORATORY Creatinine 1.58 (H) 0.70 - 12/24/2021 ST. 1.20 mg/dL 12:17 AM [facility] LABORATORY Glomerular 43 (L) >60 12/24/2021 [facility]. Filtration Rate mL/min/1.[address] [facility] 3 m*2 [facility] LABORATORY Comment: Complications of CKD and risk o f cardiovascular disease increase when GFR is below 60ml.min/1.73m2. A persistently re duced GFR is a specific indication of Chronic Kidney Disease. The eGFR calculation has not been validated in patients >70yrs. Calcium 9.3 8.4 - 10.5 mg/dL 12/24/2021 12:17 AM CDT [facility] LABORATORY Glucose 113 (H) 70 - 99 mg/dL 12/24/2021 12:17 AM CDT [facility] LABORATORY Specimen Anatomical Collection Method / Collection Time Recei pee Time (Source) Location / Volume Laterality Blood BLOOD SPECIMEN / Venipuncture / 12/23/2021 11:52 12/23 Unknown Unknown PM CDT 11:57 PM CDT Narrative [facility] LABORATOR Y - 12/24/2021 12:17 AM CDT Current ADA criteria for Glucose: ?Normal: 70-99 mg/dL ?Impaired Fasting Glucose: 100-125 mg/dL ?Diabetes Mellitus: at or above 126 mg/dL The diagnosis of diabetes must be confir med on a subsequent day by measuring Fasting Plasma Glucose, 2-hr PG or random plasma glucose (if symptoms are present). Filemon Conrad MD EC CHEMISTRY ORDERABLES Performing Organization Address City/State/ZIP Code Phon e Number [address] ANGIO HEAD NECK (12/23/2021 11:35 PM CDT) Anatomical Region Laterality Modality Head Computed Tomography Specimen (Source) Anatomical Collection Method Collection Time Re ceived Time Location / / Volume Laterality 12/23/2021 11:35 PM CDT Narrative 12/24/2021 4:19 PM CDT This document is currently in Final Status Exam CT ANGIO HEAD NECK HISTORY: Stroke. COMPARISON: None. TECHNIQUE: 3D radial and/or 3D sagittal MIP reconstructions were obtained and reviewed. Auto dosage reduction and iterative reconstruction techniques employed. FINDINGS: CTA HEAD: There is mild atherosclerotic plaque within the cavernous internal carotid arteries. The anterior cerebral arteries are patent. Middle cerebral arteries are patent. No high-grade stenosis with in the intracranial carotid arteries. Th ere is plaque within the vertebral arteries which is mild. Basilar artery is patent. The posterior cerebral arteries are patent. CTA NECK: There is atherosclerotic plaqu e takeoff of the right vertebral artery with mild narrowing. The right vertebral artery is otherwise patent to the skull base. Tortuous takeoff of the left verteb ral artery with atherosclerotic plaque w ith mild narrowing. The left vertebral artery is patent to the skull base. Takeoff of the right common carotid artery is tortuous. Right common carotid artery is patent. There is moderate plaque involvi ng the right bulb and there is 50% narrowing at the takeoff of the right ICA and involving the distalmost right common carotid artery. The right external carotid artery is narrowed but does demonstrate flow distal to the narrowing. The left common carotid artery is patent. There is mild-moderate plaque at the takeoff without hemodynamically significant stenosis of the left internal carotid artery. The left external carotid artery is patent. There is some patchy sinus disease which may be chronic. No air-fluid levels. There are some scattered lymph nodes within the right paratracheal space. No acute osseous abnormality. IMPRESSION: 1. 50% narrowing at the takeoff of the r ight ICA and distal right common carotid artery. 2. No hemodynamically significant stenos is in the left ICA with plaque at the bulb. 3. Patent cerebral vasculature. Dictated By: Dhiraj Ospina MD 022 8:09 AM Edited By: BOOKER 12/24/2021 8:37 AM Electronically Signed: Dhiraj Ospina MD 12/24/2021 4:19 PM Procedure Note Dhiraj Ospina MD - 12/24/2021Format ting of this note might be different from the original. This document is currently in Final Stat us Exam CT ANGIO HEAD NECK HISTORY: Stroke. COMPARISON: [...] are patent. CTA NECK: There is atherosclerotic plaqu e takeoff of the right vertebral artery with mild narrowing. The right vertebral artery is otherwise patent to the skull base. Tortuous takeoff of the left vertebral artery with atherosclerotic plaque with mild narrowi ng. The left vertebral artery is patent to the skull base. Takeoff of the right common carotid artery is tortuous. Right common carotid artery is patent. There is moderate plaque involving the right bulb and there is 50 % narrowing at the takeoff of the right ICA and involving the distalmost right common carotid artery. The right external carotid artery is narrowed but does demonstrate flow distal to the narrowing. The left common caroti d artery is patent. There is mild- moderate plaque at the takeoff without hemodynamically significant stenosis of the left internal carotid artery. The left external carotid artery is patent. There is some patchy sinus disease which may be chronic. No air-fluid levels. There are some scattered lymph nodes within the right paratracheal space. No acute osseous abnormality. IMPRESSION: 1. 50% narrowing at the takeoff of the r ight ICA and distal right common carotid artery. 2. No hemodynamically significant stenos is in the left ICA with plaque at the bulb. 3. Patent cerebral vasculature. Dictated By: Dhiraj Ospina MD 022 8:09 AM Edited By: BOOKER 12/24/2021 8:37 AM Electronically Signed: Dhiraj Ospina MD 12/24/2021 4:19 PM Filemon Conrad MD EC CT ORDERABLES CT HEAD WO IV CONTRAST (12/23/2021 11:34 PM CDT) Anatomical Region Laterality Modality Head Computed Tomography Specimen (Source) Anatomical Collection Method Collection Time Re ceived Time Location / / Volume Laterality 12/23/2021 11:34 PM CDT Narrative 12/24/2021 8:08 AM CDT This document is currently in Final Status Exam CT HEAD WO IV CONTRAST INDICATION: Stroke; ?? COMPARISON: None FINDINGS: No hemorrhage. No mass effect. No midline shift. Patchy hypodensities in the deep and periventricular white matter which indicate chronic small vessel ischemic disease. The calvarium is intact. IMPRESSION: 1. No acute intracranial process by CT. Electronically Signed: Dhiraj Ospina MD 12/24/2021 8:08 AM Procedure Note Dhiraj Ospina MD - 12/24/2021Format ting of this note might be different from the original. This document is currently in Final Stat us Exam CT HEAD WO IV CONTRAST INDICATION: Stroke; COMPARISON: None FINDINGS: No hemorrhage. No mass effect. No midline shift. Patchy hypodensities in the deep and periventricular white matter which indicate chronic small vessel ischemic disease. The calvarium is intact. IMPRESSION: 1. No acute intracranial process by CT. Electronically Signed: Dhiraj Ospina MD 12/24/2021 8:08 AM Filemon Conrad MD EC CT ORDERABLES documented in this encounter Visit Diagnoses Diagnosis TIA (transient ischemic attack) Unspecified transient cerebral ischemia Elevated troponin Other abnormal blood chemistry Cerebrovascular accident (CVA) due to em bolism of cerebral artery (HCC) Type 2 diabetes mellitus with hyperglyce peter, with long-term current use of insulin (HCC) Essential hypertension Unspecified essential hypertension Stage 3b chronic kidney disease (HCC) Elevated troponin level Other abnormal blood chemistry Chronic heart failure with preserved eje ction fraction (HFpEF) (HCC) documented in this encounter Administered Medications Inactive Administered Medications Medication Order MAR Action Action Date Dose Rate Site acetaminophen (Tylenol) 325 MG/10.15ML s uspension 650 mg 650 mg, Oral, EVERY 4 HOURS NEEDED, S tarting on Fri12/24/21 at 0217, Until Fri12/24/21 at 220, Mild Pain (1-3), Fever acetaminophen (Tylenol) suppository 650 mg 650 mg, Rectal, EVERY 4 HOURS NEEDED, Starting on Fri12/24/21 at 0217, Until Fri12/24/21 at 220, Mild Pain (1-3), Fever acetaminophen (TYLENOL) tablet 650 mg 650 mg, Oral, EVERY 4 HOURS NEEDED, S tarting on Fri12/24/21 at 0217, Until Fri12/24/21 at 2207, Mild Pain (1-3), Fever aspirin chewable tablet 324 mg Given 12/24/2021 12:25 AM CDT 324 mg 324 mg, Chew, ONCE, 1 dose, On Fri12/24/21 at 0000 aspirin suppository 300 mg 300 mg, Rectal, ONCE DAILY, First dose o n Fri12/24/21 at 0900, Until Discontinued aspirin tablet 325 mg Given 12/24/2021 8:27 AM CDT 325 mg 325 mg, Oral, ONCE DAILY, First dose on Fri12/24/21 at 0900, Until Discontinued clopidogrel (Plavix) tablet 75 mg Given 12/24/2021 8:27 AM CDT 75 mg 75 mg, Oral, ONCE DAILY, First dose on Fri12/24/21 at 0900, Until Discontinued escitalopram (Lexapro) tablet 10 mg Given 12/24/2021 3:07 PM CDT 10 mg 10 mg, Oral, EVERY AFTERNOON, First dose on Fri12/24/21 at 1400, Until Discontinued insulin aspart (NovoLOG) injection Given 12/24/2021 11:12 AM CDT 3 Units (CORRECTION DOSE) 0-20 Units 0-20 Units, Subcutaneous, WITH MEALS AND BEDTIME, First dose on Fri12/24/21 at 0800, Until Discontinued, Blood Glucose Target - Daytime (mg/dL): 155, Blood Glucose Target - Bedtime and Overnight (mg/dL): 155, Hyperglycemia Correction Factor - Daytime: 50, Hyperglycemia Correction Factor - Bedtime and Overnight: 100 Given 12/24/2021 6:34 AM CDT 1 Units insulin aspart (NovoLOG) pen injection 11 Given 2021 11:37 AM CDT 11 Units Units 11 Units, Subcutaneous, 3 TIMES DAILY WITH MEALS, First dose on Fri12/24/21 at 0800, Until Discontinued Given 12/24/2021 8:25 AM CDT 11 Units iohexol (Omnipaque) 350 MG/ML 80 mL Given 12/23/2021 11:36 PM CDT 80 mL 80 mL, IV Push, ONCE, 1 dose, On Fri12/23/21 at 2340 levothyroxine (Synthroid) tablet 100 mcg Given 12/24/2021 6:34 AM CDT 100 mcg 100 mcg, Oral, ONCE DAILY, First dose on Fri12/24/21 at 0700, Until Discontinued losartan (Cozaar) tablet 50 mg Given 12/24/2021 8:28 AM CDT 50 mg 50 mg, Oral, ONCE DAILY, First dose on Fri12/24/21 at 0900, Until Discontinued perflutren lipid microsphere (Definity) Given 12/24/2021 10:48 A M CDT 2 mL injection 1-2 mL 1-2 mL, IV Push, DURING PROCEDURE, 1 dose, On Fri12/24/21 at 1100 sodium chloride 0.9% (NS) IV Solution for CT Given 11:36 PM CDT 50 mL injector 50 mL 50 mL, IV Push, ONCE, 1 dose, On Fri12/23/21 at 2340 sodium chloride 0.9% IV FLUSH (NS) SYRINGE 3 Given 12:26 AM CDT 3 mL mL 3 mL, IV Flush, EVERY 8 HOURS, First dose on Fri12/23/21 at 2320, Until Discontinued sodium chloride 0.9% IV FLUSH (NS) SYRIN GE 3 mL Given 12/24/2021 3:08 PM CDT 3 mL 3 mL, IV Flush, EVERY 8 HOURS, First dose on Fri12/24/21 at 0600, Until Discontinued sodium chloride 0.9% IV LINE FLUSH (NS) BAG 30 mL 30 mL, IV Flush, SEE ADMINISTRATION INST RUCTIONS, Starting on Fri12/23/21 at 2318, Until Fri12/24/21 at 2207, Other, priming/flush fluid torsemide (Demadex) tablet 20 mg Given 12/24/2021 8:27 AM CDT 20 mg 20 mg, Oral, ONCE DAILY, First dose on Fri12/24/21 at 0900, Until Discontinued documented in this encounter Discontinued Medications Medication Sig Discontinue Reason Start Date End Date losartan (Cozaar) 25 MG Take 50 mg by Other 02/22/2021 tablet mouth one time a day. dulaglutide (Trulicity) Inject 0.75 mg Deleted via home med 12/24/2021 0.75 MG/0.5ML pen under the skin one review injection time a week. torsemide (Demadex) 20 Take 20 mg by Deleted via home med 12/24/2021 MG tablet mouth one time a review day. traZODone (Desyrel) 100 Take 50 mg by Other 02/22/2021 MG tablet mouth at bedtime as needed for Sleep. documented as of this encounter Historical Medications This list may reflect changes made after this encounter. Medication Sig Dispensed Refills Start Date End Date traZODone (Desyrel) 50 MG Take 50 mg by mouth 0 tablet at bedtime. Torsemide 40 MG Tablet Take 40 mg by mouth 0 every morning. losartan (Cozaar) 50 MG Take 50 mg by mouth 0 tablet every morning. indomethacin (Indocin) 25 Take 25 mg by mouth 0 MG capsule three times a day as needed for Other (gout exacerbation). Take with food or milk. Semaglutide, 1 MG/DOSE, Inject 1 mg under 0 (Ozempic, 1 MG/DOSE,) 2 the skin one time a MG/1.5ML Solution week. Pen-injector Semaglutide, 1 MG/DOSE, Inject 0.5 mg under 0 (Ozempic, 1 MG/DOSE,) 2 the skin one time a MG/1.5ML Solution week. Pen-injector Semaglutide, 1 MG/DOSE, Inject 0.25 mg 0 (Ozempic, 1 MG/DOSE,) 2 under the skin one MG/1.5ML Solution time a week. Pen-injector empagliflozin (Jardiance) Take 25 mg by mouth 0 25 MG Tablet one time a day. dulaglutide (Trulicity) Inject 0.75 mg 0 12/24/2021 0.75 MG/0.5ML pen under the skin one injection time a week. added in this encounter Active and Recently Administered Medications Times are shown in CDT. Scheduled Medication Order 12/22/2021 12/23/2021 12/24/2021 aspirin chewable tablet 324 mg (COMPLETED) 0025 (Given - Provider: Franklyn Matson RN) 324 mg, Chew, ONCE, 1 dose, On Fri12/24/21 at 0000 aspirin suppository 300 mg(Linked Group 1) 0827 (See Alternative - Provider: Estelle Beasley RN) 300 mg, Rectal, ONCE DAILY, First dose o n Fri12/24/21 at 0900, Until Discontinued aspirin tablet 325 mg(Linked Group 1) 0827 (Given - Provider: Estelle Beasley RN) 325 mg, Oral, ONCE DAILY, First dose on Fri12/24/21 at 0900, Until Discontinued atorvaSTATin (Lipitor) tablet 80 mg 80 mg, Oral, EVERY EVENING, First dose o n Fri12/24/21 at 2000, Until Discontinued budesonide-formoterol (Symbicort) 160-4.5 MCG/ACT 2 Puff 0930 (Not Given - Provider: Estelle Beasley RN - Reason: Patient Not Available) 2 Puff, Inhalation, 2 TIMES DAILY, First dose on Fri12/24/21 at 0900, Until Discontinued clopidogrel (Plavix) tablet 75 mg 826 (Given - Provider: Estelle Beasley RN) 75 mg, Oral, ONCE DAILY, First dose on Fri12/24/21 at 0900, Until Discontinued escitalopram (Lexapro) tablet 10 mg 150 (Given - Provider: Yesenia Peralta RN) 10 mg, Oral, EVERY AFTERNOON, First dose on Fri12/24/21 at 1400, Until Discontinued insulin aspart (NovoLOG) injection (CORRECTION DOSE) 0-20 Units 0634 (Given - Provider: Marialuisa Boswell, RN)0638 (Not Given - Provider: Marialuisa Boswell RN - Reason: Other - Comment: gave at 30)1112 (Given - Provider: Estelle Beasley RN)1700 (Due) 0-20 Units, Subcutaneous, WITH MEALS AND BEDTIME, First dose on Fri12/24/21 at 0800, Until Discontinued, Blood Glucose Target - Daytime (mg/dL): 155, Blood Glucose Target - Bedtime and Overnight (mg/dL) : 155, Hyperglycemia Correction Factor - Daytime: 50, Hyperglycemia Correction Factor - Bedtime and Overnight: 100 insulin aspart (NovoLOG) pen injection 11 Units 0825 (Given - Provider: Estelle Beasley RN)1137 (Given - Provider: Estelle Beasley, RN)1700 (Due) 11 Units, Subcutaneous, 3 TIMES DAILY WI TH MEALS, First dose on Fri12/24/21 at 0800, Until Discontinued insulin glargine (Lantus) vial injection 28 Units 28 Units, Subcutaneous, AT BEDTIME, Firs t dose on Fri12/24/21 at 2100, Until Discontinued iohexol (Omnipaque) 350 MG/ML 80 mL (COMPLETED) 5756 (Given - Provider: Octavio Glover, RT(R)) 80 mL, IV Push, ONCE, 1 dose, On Fri12/23/21 at 2340 levothyroxine (Synthroid) tablet 100 mcg 0634 (Given - Provider: Marialuisa Boswlel, RN) 100 mcg, Oral, ONCE DAILY, First dose on Fri12/24/21 at 0700, Until Discontinued losartan (Cozaar) tablet 50 mg 0 828 (Given - Provider: Estelle Beasley, RN) 50 mg, Oral, ONCE DAILY, First dose on Fri12/24/21 at 0900, Until Discontinued metoprolol succinate (Toprol-XL) 24 hour tablet 25 mg 25 mg, Oral, AT BEDTIME, First dose on Fri12/24/21 at 2100, Until Discontinued perflutren lipid microsphere (Definity) injection 1-2 mL (COMPLE SHARLENE) 1048 (Given - Provider: Krissy Gonzalez, RN) 1-2 mL, IV Push, DURING PROCEDURE, 1 dose, On Fri12/24/21 at 110 0 sodium chloride 0.9% (NS) IV Solution for CT injector 50 mL (COMPLETED) 233 (Given - Provider: Octavio Glover, RT(R)) 50 mL, IV Push, ONCE, 1 dose, On Fri12/23/21 at 2340 sodium chloride 0.9% IV FLUSH (NS) SYRINGE 3 mL (CANCELED) 0026 (Given - Provider: Franklyn Matson, ALLEY) 3 mL, IV Flush, EVERY 8 HOURS, First dos e on Fri12/23/21 at 2320, Until Discontinued sodium chloride 0.9% IV FLUSH (NS) SYRINGE 3 mL 0629 (Not Given - Provider: Marialuisa Boswell, RN - Reason: Patient sleeping)1508 (Given - Provider: Yesenia Peralta, RN) 3 mL, IV Flush, EVERY 8 HOURS, First dos e on Fri12/24/21 at 0600, Until Discontinued torsemide (Demadex) tablet 20 mg 0827 (Given - Provider: Estelle Beasley, RN) 20 mg, Oral, ONCE DAILY, First dose on Fri12/24/21 at 0900, Until Discontinued PRN Medication Order 12/22/2021 12/23/2021 12/24/2021 acetaminophen (Tylenol) 325 MG/10.15ML suspension 650 mg(Linked Group 2) 650 mg, Oral, EVERY 4 HOURS NEEDED, S tarting on Fri12/24/21 at 0217, Until Fri12/24/21 at 2206, Mild Pain (1-3), Fever acetaminophen (Tylenol) suppository 650 mg(Linked Group 2) 650 mg, Rectal, EVERY 4 HOURS NEEDED, Starting on Fri12/24/21 at 0217, Until Fri12/24/21 at 2206, Mild Pain (1-3), Fever acetaminophen (TYLENOL) tablet 650 mg(Linked Group 2) 650 mg, Oral, EVERY 4 HOURS NEEDED, S tarting on Fri12/24/21 at 021, Until Fri12/24/21 at 2206, Mild Pain (1-3), Fever albuterol (Proventil, Ventolin) (2.5 MG/3ML) 0.083% nebulizer so lution 2.5 mg 2.5 mg, Inhalation, EVERY 2 HOURS NEE DED, Starting on Fri12/24/21 at 0215, Until Fri12/24/21 at 2206, Shortness of Breath, Wheezing aluminum & magnesium hydroxide-simethico ne (Maalox, Mylanta) 200-200-20 MG/5ML suspension 30 mL 30 mL, Oral, EVERY 4 HOURS NEEDED, St arting on Fri12/24/21 at 0222, Until Fri12/24/21 at 2206, Heartburn calcium carbonate (Tums) chewable tablet 1,000 mg 1,000 mg, Chew, EVERY 4 HOURS NEEDED, Starting on Fri12/24/21 at 021, Until Fri12/24/21 at 2206, Heartburn dextrose (D50) 50 % injection 12.5-25 g 12.5-25 g, IV Push, NEEDED, Starting on Fri12/24/21 at 021, Until Fri12/24/21 at 2206, Hypoglycemia glucagon (diagnostic) (Glucagen) injection 1 mg 1 mg, Intramuscular, NEEDED, Starting on Fri12/24/21 at 021, Until Fri12/24/21 at 2206, Hypoglycemia glucose (Glutose) 40 % gel 37.5-112.5 g 37.5-112.5 g, Oral, NEEDED, Starting on Fri12/24/21 at 0217, Until Fri12/24/21 at 2206, Hypoglycemia sodium chloride 0.9% IV FLUSH (NS) SYRINGE 3 mL 3 mL, IV Flush, NEEDED, Starting on M on 12/24/21 at 0217, Until Fri12/24/21 at 2206, Other, flushes sodium chloride 0.9% IV LINE FLUSH (NS) BAG 30 mL 30 mL, IV Flush, SEE ADMINISTRATION INST RUCTIONS, Starting on Fri12/23/21 at 2318, Until Fri12/24/21 at 2206, Other, priming/flush fluid sodium chloride 0.9% IV LINE FLUSH (NS) BAG 30 mL 30 mL, IV Flush, SEE ADMINISTRATION INST RUCTIONS, Starting on Fri12/24/21 at 021, Until Fri12/24/21 at 2206, Other, priming/flush fluid traZODone (Desyrel) tablet 50 mg 50 mg, Oral, AT BEDTIME NEEDED, Start ing on Fri12/24/21 at 0215, Until Fri12/24/21 at 2206, Sleep Linked Groups Order Group 1: aspirin tablet 325 mgJump to med 325 mg, Oral, ONCE DAILY, First dose on Fri12/24/21 at 0900, Until Discontinued Or aspirin suppository 300 mgJump to med 300 mg, Rectal, ONCE DAILY, First dose o n Fri12/24/21 at 0900, Until Discontinued Group 2: acetaminophen (TYLENOL) tablet 650 mgJump to med 650 mg, Oral, EVERY 4 HOURS NEEDED, S tarting on Fri12/24/21 at 021, Until Fri12/24/21 at 2206, Mild Pain (1-3), Fever Or acetaminophen (Tylenol) 325 MG/10.15ML suspension 650 mgJump to med 650 mg, Oral, EVERY 4 HOURS NEEDED, S tarting on Fri12/24/21 at 0217, Until Fri12/24/21 at 2206, Mild Pain (1-3), Fever Or acetaminophen (Tylenol) suppository 650 mgJump to med 650 mg, Rectal, EVERY 4 HOURS NEEDED, Starting on Fri12/24/21 at 0217, Until Fri12/24/21 at 2206, Mild Pain (1-3), Fever documented in this encounter Orders Medications Ordered That Might Not Have Count Last Ord ered Date First Ordered Date Been Administered acetaminophen (Tylenol) 325 MG/10.15ML 1 suspension 650 mg acetaminophen (Tylenol) suppository 650 mg 1 12/24 acetaminophen (TYLENOL) tablet 650 mg 1 12/24/2021 albuterol (Proventil, Ventolin) (2.5 1 12/24/2021 MG/3ML) 0.083% nebulizer solution 2.5 mg aluminum & magnesium hydroxide-simethicone 1 12/24 (Maalox, Mylanta) 200-200-20 MG/5ML suspension 30 mL aspirin suppository 300 mg 1 12/24/2021 atorvaSTATin (Lipitor) tablet 80 mg 1 12/24/2021 budesonide-formoterol (Symbicort) 160-4.5 1 2021 MCG/ACT 2 Puff calcium carbonate (Tums) chewable tablet 1 1,000 mg dextrose (D50) 50 % injection 12.5-25 g 12/25/19 glucagon (diagnostic) (Glucagen) injection 1 12/24 1 mg glucose (Glutose) 40 % gel 37.5-112.5 g 12/25/19 insulin glargine (Lantus) vial injection 1 28 Units metoprolol succinate (Toprol-XL) 24 hour tablet 25 mg ondansetron (Zofran ODT) disintegrating 12/25/19 tablet 4 mg ondansetron (ZOFRAN) injection 4 mg 12/24/2021 senna-docusate (Senokot-S) 8.6-50 MG per 1 tablet 2 Tablet sodium chloride 0.9% IV FLUSH (NS) SYRINGE 2 12/2412/23/2021 3 mL sodium chloride 0.9% IV LINE FLUSH (NS) 2 12/25/19 22 12/23/2021 BAG 30 mL traZODone (Desyrel) tablet 50 mg 1 12/24/2021 Lab Orders Without Results Count Last Ordered Date Fir st Ordered Date POCT BEDSIDE GLUCOSE TESTING 1 12/23/2021 EKG Orders Without Results Count Last Ordered Date Fir st Ordered Date MCT/AUGUSTINE (UP TO 30 DAYS) 1 12/25/2021 Admission Count Last Ordered Date First Ordered Date ASSIGN TO OBSERVATION 1 12/24/2021 Transfer Count Last Ordered Date First Ordered Date ED BED REQUEST SM 1 12/24/2021 Discharge Count Last Ordered Date First Ordered Date DISCHARGE PATIENT 1 12/24/2021 Nursing Count Last Ordered Date First Ordered Date TELEMETRY MONITORING 1 12/24/2021 CARDIAC MONITORING 1 12/23/2021 CHECK TEMPERATURE 1 12/23/2021 CONTINUOUS PULSE OXIMETRY 1 12/23/2021 NEURO CHECKS 1 12/23/2021 NURSING IV START 1 12/23/2021 NURSING SWALLOW ASSESSMENT 1 12/23/2021 Consult Count Last Ordered Date First Ordered Date IP CONSULT TO CARDIOLOGY 1 12/24/2021 IP CONSULT TO OFF PREMISE SERVICE REPRESENTATIVE 1 12/24/2021 IP CONSULT TO SASKIA TELE-STROKE 1 12/23/2021 documented in this encounter
--- OUTSIDE RECORDS SUMMARY | 2022-05-21 11:40 | XMS_ITS | Encounter Summary ---
:1945 Author Organization [employer] [facility] Address [address] [address] Phone Care Team Providers Name Role Phone Unavailable Primary Care Provider Unavailable Encounter Details Date Type Department Care Team Description 12/23/2021 Travel Social History Tobacco Use Types Packs/Day [...]
--- OUTSIDE RECORDS SUMMARY | 2022-05-21 11:40 | XMS_ITS | Encounter Summary ---
:1945 Author Organization [employer] [facility] Address [address] [place] [address] Phone Care Team Providers Name Role Phone Unavailable Primary Care Provider Unavailable Encounter Details Date Type Department Care Team Description 12/25/2021 Hospital Encounter [facility] Cardiovascular accide nt (CVA) due to Diagnostics embolism of cerebral [address] artery (HCC) [place] [id number] Social History Tobacco Use Types Packs/Day Years [...] 12/24/2021 Activities documented as of this encounter Medications at [...] (Lexapro) Take 10 mg by mouth 0 /09/2017 10 MG tablet every afternoon. 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
== END 2022-05-09 11:18 | disposition home or self-care (01) ==
LOC: AMB 05-21 11:04
PROVIDERS: PCP Family Medicine; Visit Provider Emergency Medicine Emergency Medical Services
DX: S31.819A Unspecified open wound of right buttock, initial encounter (principal)
CPT/HCPCS: A0425; A0427

== ENCOUNTER 2022-05-09 11:39 | Emergency (ER) | payer OTHER, SELFPAY ==
[2022-05-09 11:45] VITALS: BP 125/71; PULSE 77; RESP 14; TEMP 36.9; O2SAT 96; BMI 23.9
--- NOTE | 2022-05-09 12:02 | ED_ITS ---
HPI - Skin/Abscess/Foreign Bdy General Chief complaint: Skin/Abscess/Foreign Body Stated complaint: Abscess Time Seen by Provider: 05/09/22 11:53 History of Present Illness HPI narrative: This 76-year-old male is a resident at [address] [place] [address] and comes in for further treatment of a abscess on his right buttock. He was prescribed an antibiotic by a nurse practitioner yesterday. He started taking this medicine. There was no other evaluation or treatment done so he was sent here to have this abscess looked at. He has a right hemiparesis and states that he is frequently laying on his back. Review of Systems Status of ROS: Reports: 10 or more systems reviewed and unremarkable except as noted in History and below Narrative: Constitutional: No fevers, no weight gain or loss. Eyes: No discharge. No vision changes. HENT: No congestion, no sore throat, no ear pain. Cardiovascular: No chest pain, no palpitations. Respiratory: No shortness of breath, no wheezes, no cough. Gastrointestinal: No abdominal pain, no vomiting, no diarrhea. Genitourinary: No dysuria, no hematuria. Musculoskeletal: No injury. Skin: No rashes, no pruritis. Neurological: No dizziness, s speech change. Chronic Right-sided weakness. Endo/Heme/Allergies: No bruising or bleeding. No polydipsia. Pysch: no suicidality, no anxiety, no insomnia. All other systems reviewed and are negative. PFSH PFSH Social History Smoking Status: Former smoker How often do you have a drink containing alcohol: never AUDIT-C Alcohol total score: 0 Non-prescribed substance use: denies use Exam Narrative: Exam Narrative: Constitutional: Well-developed, well-nourished, no acute distress. HEENT: Normocephalic, atraumatic. Neck: Normal range of motion. Nontender. Supple. Heart: Intact distal pulses. Lungs: No chest discomfort. No wheezes, rhonchi, or rales. Abdomen: Nontender. Back: Normal range of motion. Extremities: Normal range of motion. No injury. Skin: Erythema and swelling with tenderness in the right buttock. Neurologic: No altered sensation. No weakness. Alert and oriented. Psychiatric: No suicidality. No anxiety or depression. No insomnia. Nursing notes and vitals signs are reviewed. Const: Vital Signs, click to edit/add: Vital Signs - 24 hr 05/09/22 11:45 Temperature 98.5 F Pulse Rate [Pulse Oximeter] 77 Respiratory Rate 14 Blood Pressure [Le ft Upper Arm] 125/71 Pulse Oximetry 96 Oxygen Delivery Me thod Room Air Course Vital Signs Vital signs: Initial Vital Signs Temperature 98.5 F 05/09/22 11:45 Temperature Source Temporal Artery Scan 05/09/22 11:45 Pulse Rate 77 05/09/22 11:45 Pulse Rhythm 05/09/22 11:45 Respiratory Rate 14 05/09/22 11:45 Blood Pressure 125/71 05/09/22 11:45 Blood Pressure Mean 89 05/09/22 11:45 Blood Pressure Position Supine 05/09/22 11:45 Pulse Oximetry 96 05/09/22 11:45 Oxygen Delivery Method 05/09/22 11:45 Vital Signs Temperature 98.5 F 05/09/22 11:45 Pulse Rate 77 05/09/22 11:45 Respiratory Rate 14 05/09/22 11:45 Blood Pressure 125/71 05/09/22 11:45 Pulse Oximetry 96 05/09/22 11:45 Oxygen Delivery Method 05/09/22 11:45 Temperature 98.5 F 05/09/22 11:45 Pulse Rate 77 05/09/22 11:45 Respiratory Rate 14 05/09/22 11:45 Blood Pressure 125/71 05/09/22 11:45 Pulse Oximetry 96 05/09/22 11:45 Oxygen Delivery Method 05/09/22 11:45 MDM - Skin/Abscess/Foreign Bdy MDM Narrative Medical decision making narrative: This patient comes in with the abscess on his right buttock. He has started taking an antibiotic but no further assessment or treatment was done prior to this. I did use 1% lidocaine for anesthesia after cleansing the area with an alcohol swab. I used a #10 Blade to incise into the abscess. There was a small amount of purulent drainage amounting to about [address] iodoform gauze and the wound was dressed. The patient will be able to continue his current antibiotic treatment. I advised him to keep pressure off of this wound and avoid laying on that side until symptoms resolve. Discharge Plan Discharge Clinical Impression: Abscess of skin or subcutaneous tissue Condition: Stable Instructions: Incision and Drainage (ED) Additional Instructions: Avoid laying on right buttock to allow the abscess to drain and heal. Change dressing at least daily. Continue antibiotic medication as prescribed. Follow up with primary physician. Follow Up/Referrals: Maximo Amador MD [Primary Care Provider] - Stand Alone Forms: [employer] Info Instructions
[2022-05-09 12:45] VITALS: BP 125/71; PULSE 77; RESP 14; TEMP 36.9
--- NOTE | 2022-05-09 14:06 | PC.NURSE ---
[facility] here to load Mamta dorman at [facility] notified
== END 2022-05-09 14:07 | disposition home or self-care (01) ==
PROVIDERS: Emergency Provider Emergency Medicine Emergency Medical Services; PCP Family Medicine
DX: L02.31 Cutaneous abscess of buttock (principal)
CPT/HCPCS: 10060; 99284

== ENCOUNTER 2022-05-09 14:05 | Outpatient (CLI) | payer SELFPAY | END 2022-05-09 14:06 | disposition home or self-care (01) | LOC: AMB 05-21 10:13 | PROVIDERS: PCP Family Medicine; Visit Provider Family Medicine | DX: L02.31 Cutaneous abscess of buttock (principal) | CPT/HCPCS: A0425; A0428 ==

== ENCOUNTER 2022-05-27 10:41 | Outpatient (CLI) | payer MEDICARE, SELFPAY ==
--- OUTSIDE RECORDS SUMMARY | 2022-05-28 06:36 | XMS_ITS | Encounter Summary ---
:1945 Author Organization [facility] Address [address] [place] [address] Care Team Providers Name Role Phone Shayla Alford D.O. Primary Care Provider [phone] Encounter Details Date Type Department Care Team Description 11/07/2021 Clinical Communication Department of Internal Andrei Dejesus Medicine in [place], [place], [place].O Mauro [place] [address] [place] [phone] Social History Tobacco Use Types Packs/Day Years [...] do you attend baptism or Never 2021 zoroastrian services? Do you [...] completed or the highest Martin, MEd, PUBLIC SAFETY POLICE, CAYDEN) degree you have received? Sex Assigned at Date Recorded Male 05/21/2018 2:34 PM CDT documented as of this encounter Miscellaneous Notes Telephone Encounter - Jacquie Hamilton L.P.N. - 11/07/2021 11:35 AM PROFESSOR OF FINE ART Patient called and given recent lab findings along with advisement from provider per Dr Reid direction. Copy of message sent to patient via his patient portal per his direction ESSOR OF FINE ART Telephone Encounter - Jacquie Hamilton LMauroPMauroN. - 11/07/2021 11:33 AM PROFESSOR OF FINE ART ----- Message from Shayla Alford D.O. sent at 11/07/2021 11:24 AM PROFESSOR OF FINE ART ----- Please, call patient following information. Good [...] if he is ableto obtain from the MD. once the Trulicity has started, they will likely start decreasing his insulindose to avoid hypoglycemia episodes. I placed a referral for him to also work with our pharmacist jian who does excellent job at titrating medications especially diabetic medications Electronically signed by: Shayla Alford D.O. 11/07/21 11:23 AM PROFESSOR OF FINE ART ESSOR OF FINE ART documented in this encounter Plan of Treatment Not on filedocumented as of this encounter Visit Diagnoses Not on filedocumented in this encounter Additional Health Concerns Assessment Noted Time PHQ-9 Depression Total Score: 18 04/28/2018 11:27 AM C DT documented as of this encounter Care Teams Final Installer Inspector Relationship Specialty Start Date End Date Shayla Alford D.O. PCP - General Internal Medicine 05/22/[address] [address] documented as of this encounter
--- OUTSIDE RECORDS SUMMARY | 2022-05-28 06:36 | XMS_ITS | Encounter Summary ---
:1945 Author Organization [facility] Address [address] [place] [address] Care Team Providers Name Role Phone Shayla Alford D.O. Primary Care Provider [phone] Reason for Visit Reason Comments Stroke Ref. Dr. Page Appointment Request (Routine) - Closed Specialty Diagnoses / Procedures Referred By Contact Refer red To Contact Neurology Diagnoses Infarction Cerebral (HCC) Dakotah Page M.D. [facility] Procedures Consult [address] [place], [place] [address] Referral ID Status Reason Start Date Expiration Date Visits Requ ested Visits Authorized [id number] Closed 01/11/2022 07/10/2022 1 1 Encounter Details Date Type Department Care Team Description 02/27/2022 Comprehensive Visit Department of Mari Lala Stroke (HCC) (Primary Dx); Neurology in [place], Hemianopsia Jonathan onymous Right [place], [place] M.P.H. [address] [facility] [address] [place], [place] [phone] [address] Social History Tobacco Use Types Packs/Day [...] do you attend mandaeism or Never 2021 yazidism services? Do you belong to any clubs or No 10/09/2021 organizations such as mandaeism groups, unions, fraTachyus or athletic groups, or school groups? How [...] completed or the highest Martin, MEd, COMMERCIAL GLAZIER, CAYDEN) degree you have received? Sex Assigned [...] Body Mass Index 26.8 10/09/2021 3:28 PM CONSTRUCTION CRAFT LABORER documented in this encounter Consult Notes Mari Lala M.D., M.P.H. - 02/27/2022 2:30 PM CDT SUBJECTIVE CHIEF COMPLAINT / REASON FOR VISIT Beth Costa is a 76 y.o. male who presents for evaluation of Stroke (Ref. Dr. Page). HISTORY OF PRESENT ILLNESS Patient had evanescent right-sided motor weakness when he was on vacation in [facility] on 12/23/2021. These resolved and the left. The symptoms then recurred a shortly thereafter and he was readmitted to [facility] and the right-sided weakness of the arm [...] that the patient was discharged yesterday from [facility] after having a TIA and completely recovering. His states that the patient was getting out of the car this morning around 1100 when the patient had right sided weakness and slower speech. He was admitted yesterday for his TIA for right sided weakness. His heart rate was noted to be in the 30's per furnace utility operator. The patient denies chest pain, shortnessof breath [...] By: Dhiraj Ospina MD 12/24/2021 8:09 [place] [address] Transthoracic Echocardiogram Report Name: BEHT COSTA Study Date: 12/24/2021 Performing Location: [place] : 1945 Gender: Male Height: 72 in [...] with Dr. Prasanna Bernal at the [facility]. ??? TONSILLECTOMY ??? TONSILLECTOMY 1967 [...] Disp: , Rfl: ??? PEN NEEDLE, DIABETIC [facility], Yani Fine 30 disposable needles. For use [...] , Rfl: ??? SYRINGE-NEEDLE,INSULIN,0.5 ML (INSULIN SYRINGE [facility]), , Disp: , Rfl: ??? torsemide (DEMADEX) [...] ??? flash glucose scanning reader (FREESTYLE SOFYA) [facility], 1 each 5 (five) times a day. [...] Master's degree (e.g., MA, MS, Martin, MEd, COMMERCIAL GLAZIER, CAYDEN) Occupational History Employer: RETIRED Tobacco Use [...] and Family: Once a week ??? Attends Muslim Services: Never ??? Active Member of Clubs [...] Alert and oriented x 4. 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 Stroke ([facility]) Yes ??? Hemianopsia Homonymous Right [...] documented as of this encounter Care Teams Acid Treater Relationship Specialty Start Date End Date Shayla Alford D.O. PCP - General Internal Medicine 05/22/20 [address] [address] documented as of this encounter
--- OUTSIDE RECORDS SUMMARY | 2022-05-28 06:36 | XMS_ITS | Encounter Summary ---
:1945 Author Organization [facility] Address [address] [place] [address] Care Team Providers Name Role Phone Shayla Alford D.O. Primary Care Provider [phone] Encounter Details Date Type Department Care Team Description 02/04/2022 Clinical Communication Department of Urology Prasanna Bernal in [place], [place] ta M.D. [address] [place] [address] [place], [place] [phone] Social History Tobacco Use Types Packs/Day [...] do you attend quaker or Never 2021 congregation services? Do you [...] completed or the highest Martin, MEd, WOOD CASKET ASSEMBLER, CAYDEN) degree you have received? Sex [...] documented as of this encounter Care Teams Customer Associate Relationship Specialty Start Date End Date Shayla Alford D.O. PCP - General Internal Medicine 05/22/[address] [address] documented as of this encounter
--- OUTSIDE RECORDS SUMMARY | 2022-05-28 06:36 | XMS_ITS | Encounter Summary ---
:1945 Author Organization [facility] Address [address] [place] [address] Care Team Providers Name Role Phone Shayla Alford D.O. Primary Care Provider [phone] Encounter Details Date Type Department Care Team Description 12/24/2021 Clinical Communication Department of Internal Andrei Dejesus Medicine in [place], [place], [place].O Mauro [place] [address] [place] [phone] Social History Tobacco Use Types Packs/Day Years [...] do you attend restorationist or Never 2021 denominational services? Do you [...] have completed or the highest Martin, MEd, MIDDLEWARE DEVELOPER, CAYDEN) degree you have received? Sex [...] as plan patient will be discharged from [facility] later this afternoon. I informed her that any medication changes or adjustments can be addressed at [facility] appointment on 12/27 and the hospital team will prescribe any medications that may be necessary prior to that appointment. I discussed with Diallo that she can discussneurology follow up at [facility] appointment as well. I did offer [...] reported pt is currently in hospital in [place]. Said pt had video consult with [facility] neurologist last night (12/24) and was told he had a TIA stroke. reports pt feeling fine now and will discharge today. Pt's is wondering about a potential increase or change in meds to prevent this from happening again. She said she is also wondering if pt should have consult with [place] neurologist as well. Pt's would like a call today (12/25), so she can pass on any information from PCP to [facility]. Post hospital FU scheduled with PCP on [...] documented as of this encounter Care Teams Circular Tank Cooper Relationship Specialty Start Date End Date Shayla Alford D.O. PCP - General Internal Medicine 05/22/20 [address] [place] [address] documented as of this encounter
--- OUTSIDE RECORDS SUMMARY | 2022-05-28 06:36 | XMS_ITS | Encounter Summary ---
:1945 Author Organization [facility] Address [address] [place] [address] Care Team Providers Name Role Phone Shayla Alford D.O. Primary Care Provider [phone] Reason for Visit Reason Comments Lesion Outpatient (Routine) - Closed Specialty Diagnoses / Procedures Referred By Contact Refer red To Contact Dermatology Diagnoses Lesion Skin Shayla Alford D.O. [facility] [address] [place] [address] Referral ID Status Reason Start Date Expiration Date Visits V isits Requested Authorized [id number] Closed Specialty 09/13/2021 09/13/2022 1 1 Services Required Encounter Details Date Type Department Care Team Description 11/19/2021 Comprehensive Visit Department of Jose Enrique, Phyllis, Hyperpl alberto Dermatology in [facility] Sebaceous [place], [place] M.S.N. [address] [facility] [address] [place], [place] [phone] [address] Social History Tobacco Use Types Packs/Day [...] do you attend confucianist or Never 2021 religion services? Do you belong to any clubs or No 10/09/2021 organizations such as confucianist groups, unions, fraVivorte or athletic groups, or school groups? How [...] completed or the highest Martin, MEd, CHEMICAL COMPOUNDER HELPER, CAYDEN) degree you have received? Sex [...] and edited as needed by the provider. SE PRESS HELPER documented in this encounter Plan of Treatment Not on filedocumented as of this encounter Visit Diagnoses Diagnosis Hyperplasia Sebaceous documented in this encounter Additional Health Concerns Assessment Noted Time PHQ-9 Depression Total Score: 18 04/28/2018 11:27 AM C DT documented as of this encounter Care Teams Negative Turner Relationship Specialty Start Date End Date Shayla Alford D.O. PCP - General Internal Medicine 05/22/[address] [address] documented as of this encounter
--- OUTSIDE RECORDS SUMMARY | 2022-05-28 06:36 | XMS_ITS | Encounter Summary ---
:1945 Author Organization [facility] Address [address] [place] [address] Care Team Providers Name Role Phone Shayla Alford D.O. Primary Care Provider [phone] Encounter Details Date Type Department Care Team Description 11/07/2021 Orders Only Department of Internal Rocío Medicine in [place], [place], [place].Jason Wade [place] [address] [place] [phone] (Wo rk) Social History Tobacco Use Types [...] do you attend mandaen or Never 2021 mormon services? Do you [...] completed or the highest Martin, MEd, CHIEF OF SERVICE, CAYDEN) degree you have received? Sex Assigned at Date Recorded Male 05/21/2018 2:34 PM CDT documented as of this encounter Plan of Treatment Not on filedocumented as of this encounter Visit Diagnoses Not on filedocumented in this encounter Additional Health Concerns Assessment Noted Time PHQ-9 Depression Total Score: 18 04/28/2018 11:27 AM C DT documented as of this encounter Care Teams Machine Bobbin Winder Relationship Specialty Start Date End Date Shayla Alford D.O. PCP - General Internal Medicine 05/22/[address] [phone] documented as of this encounter
--- OUTSIDE RECORDS SUMMARY | 2022-05-28 06:36 | XMS_ITS | Encounter Summary ---
:1945 Author Organization [facility] Address [address] [place] [address] Care Team Providers Name Role Phone Shayla Alford D.O. Primary Care Provider [phone] Reason for Visit Reason Comments Form Review [facility] statement of barney ertifying physician Encounter Details Date Type Department Care Team Description 11/14/2021 Clinical Communication Department of Alexys marin Review Internal Medicine Shayla queen ([facility] in [place] statement [facility] [address] certifying [address] [facility] physician) [place] [phone] Social History Tobacco Use Types Packs/Day Years [...] do you attend jain or Never 2021 nondenominational services? Do you [...] have completed or the highest Martin, MEd, UNIVERSAL BANKER, CAYDEN) degree you have received? Sex Assigned at Date Recorded Male 05/21/2018 2:34 PM CDT documented as of this encounter Miscellaneous Notes Telephone Encounter - Sheyla Obrien - 11/15/2021 4:41 PM CST Form faxed back to facility and sent for scanning. E COORDINATOR Telephone Encounter - Sheyla Obrien - 11/14/2021 9:48 AM CST Form was emailed to Dr. Alford for electronic review/signature. COLOR SPRAYER: [facility] PHONE NUMBER: [phone] INFO REQUESTED: Statement of certifying physician INSTRUCTIONS: Fax information to [phone] E COORDINATOR documented in this encounter Plan of Treatment Not on filedocumented as of this encounter Visit Diagnoses Not on filedocumented in this encounter Additional Health Concerns Assessment Noted Time PHQ-9 Depression Total Score: 18 04/28/2018 11:27 AM C DT documented as of this encounter Care Teams Customer Service Advocate Relationship Specialty Start Date End Date Shayla Alford D.O. PCP - General Internal Medicine 05/22/[address] [phone] documented as of this encounter
--- OUTSIDE RECORDS SUMMARY | 2022-05-28 06:36 | XMS_ITS | Encounter Summary ---
:[address] [facility] Address [address] [place] [address] Care Team Providers Name Role Phone Shayla Alford D.O. Primary Care Provider [phone] Encounter Details Date Type Department Care Team Description 12/26/2021 Orders Only Department of Internal Rocío Medicine in [place]Jason [place] [address] [place] [phone] (Wo rk) Social History Tobacco Use Types [...] do you attend druze or Never 2021 catholic services? Do you [...] have completed or the highest Martin, MEd, COTTON PICKER OPERATOR, CAYDEN) degree you have received? Sex Assigned at Date Recorded Male 05/21/2018 2:34 PM CDT documented as of this encounter Plan of Treatment Not on filedocumented as of this encounter Visit Diagnoses Not on filedocumented in this encounter Additional Health Concerns Assessment Noted Time PHQ-9 Depression Total Score: 18 04/28/2018 11:27 AM C DT documented as of this encounter Care Teams Science Center Display Builder Relationship Specialty Start Date End Date Shayla Alford D.O. PCP - General Internal Medicine 05/22/[address] [phone] documented as of this encounter
--- OUTSIDE RECORDS SUMMARY | 2022-05-28 06:36 | XMS_ITS | Clinical Summary ---
:1945 Author Organization [facility] Address [address] [place] [address] Care Team Providers Name Role Phone Shayla Alford D.O. Primary Care Provider [phone] Source Comments Patient records contain information from all sites at [facility]. For routine questions regarding patient records, call [phone] during business hours, M-F 8:00 AM - 5:00 PM Central Time. Record requests for emergency care only can be directed to [phone] at any time.[facility] Allergies Active Allergy Reactions Severity Noted Date [...] to walk as needed. Community Services/County Contacts: [place] sarita cuello. 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 02/28/2022 Clinical Communication Community Internal [facility] Form Review Medicine Shayla queen ([facility] D.O. - labs ) 02/27/2022 Comprehensive [...] do you attend caodaism or Never 2021 hindu services? Do you [...] completed or the highest Martin, MEd, ASSISTANT CENTER DIRECTOR, CAYDEN) degree you have received? Sex Assigned at Date Recorded Male 05/21/2018 2:34 PM CDT Last Filed Vital Signs Vital Sign Reading Time Taken Comments Blood Pressure 137/76 02/27/2022 1:56 PM CDT Pulse 72 02/27/2022 1:56 PM CDT Temperature 36.2 ??C (97.2 ??F) 02/27/2022 1:56 PM CDT Respiratory Rate 18 09/05/2021 9:53 AM ANESTHESIOLOGY TEACHER Oxygen Saturation 98% 02/27/2022 1:56 PM room air CDT Inhaled Oxygen Concentration - - Weight 91.6 kg (202 lb) 02/27/2022 1:56 PM per [facility]. Not es CDT Height 184.9 cm (6' 0.8) 10/09/2021 3:28 PM ANESTHESIOLOGY TEACHER Body Mass Index 26.8 10/09/2021 3:28 PM ANESTHESIOLOGY TEACHER Plan of Treatment Health Maintenance Due Date [...] history exists Medical Devices Implanted Type Area Discharge Rn Device Shelf Model / Identifier Expiration Serial [...] T ype Group Dates UCARE UCARE FOR [id number] 2019-Pre [phone] [address] [employer] SENIORS O sent -67[address] [place] [address] [facility] [id number] 2007-Pr OCC CLAIMS I ndemnity ADMINISTRATION esent [employer]ING [employer] [address] [place] [address] Advance Directives For more information, please contact: [phone] Latest Code Status on File Code Status Date Activated Date Inactivated Comments Full Code 05/03/2020 5:37 PM 05/06/2020 7:12 PM Full Code: Discussed Care Teams Digital Archivist Relationship Specialty Start Date End Date Shayla Alford D.O. PCP - General Internal Medicine 05/22/20 [address] [place] [address]
--- OUTSIDE RECORDS SUMMARY | 2022-05-28 06:36 | XMS_ITS | Encounter Summary ---
:1945 Author Organization [facility] Address [address] [place] [address] Care Team Providers Name Role Phone Shayla Alford D.O. Primary Care Provider [phone] Encounter Details Date Type Department Care Team Description 11/11/2021 Lab Department of Prasanna Mcdonnell Mal[facility] [address] ([facility]) [place], [place] [address] [facility] [address] [place] [address] [phone] Social History Tobacco Use Types Packs/Day Years [...] do you attend anglican or Never 2021 latter-day services? Do you [...] have completed or the highest Martin, MEd, WATCH INSPECTOR, CAYDEN) degree you have received? Sex Assigned at Date Recorded Male 05/21/2018 2:34 PM CDT documented as of this encounter Plan of Treatment Not on filedocumented as of this encounter Procedures Procedure Name Priority Date/Time Associated Diagnosis Comme nts SARS CORONAVIRUS-2 Routine 11/11/2021 8:06 AM Malignant Neopla sm Results for this RNA, V BOX ICER Of Bladder Posterior procedu re are in Wall (HCC) the results section. documented in this encounter Results SARS Coronavirus-2 RNA, V Asymptomatic (11/11/2021 8:06 AM BOX ICER) [facility] Method Time Signature SARS-CoV-2 Swab, 11/11/2021 MKTO Specimen Nasopharynx 11:29 PM Source BOX ICER SARS CoV-2 Undetected Undetected 11/11/2021 MKTO RNA, TMA 11:29 PM BOX ICER Comment: SARS-CoV-2 RNA absent. This result does not rule out COVID-19 in the patient, as the sensitivity of the test depends o n the timing of the specimen collection and the quality of the specim en. Result should be correlated with patient's history and clinical presentat ion. ----ADDITIONAL INFORMATION---- This molecular amplification test was pe rformed using the Aptima SARS-CoV-2 assay ([employer] on the [place] Sys tem under emergency use authorization (EUA) by the U.S. Food and Drug Administ ration. Fact sheets for this EUA assay can be fo und at the following links: For Healthcare Providers: https://www.fd a.gov/media/590662/download For Patients: https://www.fda.gov/media/ 632335/download Specimen Anatomical Collection Method Collection Time Receive d Time (Source) Location / / Volume Laterality Varies 11/11/2021 8:06 AM 4:32 (Nasopharynx) BOX ICER PM BOX ICER Prasanna Bernal M.D. 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 PCP - General Internal Medicine 05/22/[address] [phone] documented as of this encounter
--- OUTSIDE RECORDS SUMMARY | 2022-05-28 06:36 | XMS_ITS | Encounter Summary ---
:1945 Author Organization [facility] Address [address] [place] [address] Care Team Providers Name Role Phone Shayla Alford D.O. Primary Care Provider [phone] Encounter Details Date Type Department Care Team Description 11/30/2021 Clinical Communication Department of Internal Andrei Dejesus Medicine in [place], [place], [place].O Mauro [place] [address] [place] [phone] Social History Tobacco Use Types Packs/Day Years [...] do you attend moravian or Never 2021 gnosticism services? Do you [...] have completed or the highest Martin, MEd, RECOVERY UNIT OPERATOR, CAYDEN) degree you have received? Sex [...] to remove from [employer], patient removed from [place]. CAL ASSISTANT CARDIOLOGY documented in this encounter Plan of Treatment Not on filedocumented as of this encounter Visit Diagnoses Not on filedocumented in this encounter Additional Health Concerns Infection Onset Date Last Indicated Resolved Time COVID19 Pending 11/29/2021 11/29/2021 12/19/2021 5:54 AM CDT Assessment Noted Time PHQ-9 Depression Total Score: 18 04/28/2018 11:27 AM C DT documented as of this encounter Care Teams Big Data Lead Relationship Specialty Start Date End Date Shayla Alford D.O. PCP - General Internal Medicine 05/22/[address] [phone] documented as of this encounter
--- OUTSIDE RECORDS SUMMARY | 2022-05-28 06:36 | XMS_ITS | Encounter Summary ---
:1945 Author Organization [facility] Address [address] [place] [address] Care Team Providers Name Role Phone Shayla Alford D.O. Primary Care Provider [phone] Reason for Referral Medication Prior Authorization - Closed Specialty Diagnoses / Procedures Referred By Contact Refer red To Contact Jeison Alford D.O. [address] [place] [phone] Referral ID Status Reason Start Date Expiration Date Visits Requ ested Visits Authorized [id number] Closed 1 1 L COMPLIANCE OFFICER Encounter Details Date Type Department Care Team Description 11/19/2021 Clinical Communication Department of Internal Andrei Dejesus [place] D[place]O . [place] [address] [phone] Social History Tobacco Use Types Packs/Day Years [...] do you attend mu-ism or Never 2021 presybeterian services? Do you belong to any clubs or No 10/09/2021 organizations such as mu-ism groups, unions, fraCRAiLAR or athletic groups, or school groups? How [...] have completed or the highest Martin, MEd, BOILER SHOP SUPERVISOR, CAYDEN) degree you have received? Sex Assigned at Date Recorded Male 05/21/2018 2:34 PM CDT documented as of this encounter Miscellaneous Notes Telephone Encounter - Yari Lee, C.M.A. - 11/22/2021 3:18 PM LEGAL COMPLIANCE OFFICER Information Discussed Informed patient that ozempic prescription [...] following references were used: provider Dr. Reid L COMPLIANCE OFFICER Telephone Encounter - Anjali Sam - 11/22/2021 3:02 PM CST Patient is calling again to reach a nurse, [phone] L COMPLIANCE OFFICER Telephone Encounter - Chiqui Parham - 11/22/2021 12:25 PM CST Patient called in, returning call to [facility] nurse. Unable to get a hold of a nurse. Please call patientback. L COMPLIANCE OFFICER Telephone Encounter - Yari Lee C.M.Malcolm - 11/20/2021 3:59 PM LEGAL COMPLIANCE OFFICER Prescription put on providers desk for signature. L COMPLIANCE OFFICER Telephone Encounter - Shayla Alford D.O. - 11/20/2021 1:53 PM LEGAL COMPLIANCE OFFICER DONE Electronically signed by: Shayla Alford D.O. 11/20/21 1:53 PM LEGAL COMPLIANCE OFFICER L COMPLIANCE OFFICER Addendum Note - Shayla Alford D.O. - 11/20/2021 1:52 PM LEGAL COMPLIANCE OFFICER Addended by: SHAYLA ALFORD on: 11/20/2021 01:52 PM Modules accepted: Orders L COMPLIANCE OFFICER Addendum Note - Jacquie Hamilton, L.P.NMauro - 11/20/2021 12:19 PM LEGAL COMPLIANCE OFFICER Addended by: JACQUIE HAMILTON on: 11/20/2021 12:19 PM Modules accepted: Orders L COMPLIANCE OFFICER Addendum Note - Jacquie Hamilton L.P.NMauro - 11/20/2021 12:13 PM LEGAL COMPLIANCE OFFICER Addended by: JACQUIE HAMILTON on: 11/20/2021 12:13 PM Modules accepted: Orders L COMPLIANCE OFFICER Addendum Note - Jacquie Hamilton L.P.N. - 11/20/2021 11:50 AM LEGAL COMPLIANCE OFFICER Addended by: JACQUIE HAMILTON on: 11/20/2021 11:50 AM Modules accepted: Orders L COMPLIANCE OFFICER Telephone Encounter - Jacquie Hamilton L.P.N. - 11/20/2021 11:43 AM LEGAL COMPLIANCE OFFICER Prescription for medication Ozempic pended as requested and outlined by Dr Reid for approval. Prescriptions to be faxed to patient's [facility] pharmacy to dispense L COMPLIANCE OFFICER Telephone Encounter - Jacquie Hamilton L.P.NMauro - 11/19/2021 8:55 AM LEGAL COMPLIANCE OFFICER SUBJECTIVE CHIEF COMPLAINT / REASON FOR CALL No chief complaint on file. Information Discussed Patient here at clinic with document he received from the [place] pharmacy requesting PCP approve and prescribe taper up for medication OZEMPIC. Document placed in pcp mailbox with pcp to write prescriptionthat is to be faxed to the [place] pharmacy and a copy mailed to patient for OZEMPIC PLAN Disposition/Recommendation: notified provider and awaiting recommendations Information/Education: patient/caller able to teach back Caller agreeable to plan of care: yes The following references were used: other per patient L COMPLIANCE OFFICER documented in this encounter Plan of Treatment Not on filedocumented as of this encounter Visit Diagnoses Not on filedocumented in this encounter Additional Health Concerns Assessment Noted Time PHQ-9 Depression Total Score: 18 04/28/2018 11:27 AM C DT documented as of this encounter Care Teams Distribution Coordinator Relationship Specialty Start Date End Date Shayla Alford D.O. PCP - General Internal Medicine 05/22/[address] [phone] documented as of this encounter
--- OUTSIDE RECORDS SUMMARY | 2022-05-28 06:36 | XMS_ITS | Encounter Summary ---
:1945 Author Organization [facility] Address [address] [place] [address] Care Team Providers Name Role Phone Shayla Alford D.O. Primary Care Provider [phone] Reason for Visit Appointment Request (Routine) - Closed Specialty Diagnoses / Procedures Referred By Contact Refer red To Contact Community Internal Medicine Referral ID Status Reason Start Date Expiration Date Visits Requ ested Visits Authorized [id number] Closed 12/26/2021 12/26/2022 1 1 Encounter Details Date Type Department Care Team Description 12/26/2021 Virtual Visit Department of Internal Rocío, Stroke (HCC) (Primary Medicine in Shayla [place] D.O . Dx) [place] [address] [place] [phone] Social History Tobacco Use Types Packs/Day [...] do you attend hoahaoism or Never 2021 yarsani services? Do you belong to any clubs or No 10/09/2021 organizations such as hoahaoism groups, unions, fraNeli [employer] or athletic groups, or school groups? [...] completed or the highest Martin, MEd, LEAD SQL DEVELOPER, CAYDEN) degree you have received? Sex Assigned at Date Recorded Male 05/21/2018 2:34 PM CDT documented as of this encounter Progress Notes Shayla Alford D.O. - 12/26/2021 2:00 PM CDT Patient has sustained a stroke and is in [facility] undergoing treatment. I did speak to his [...] documented as of this encounter Care Teams Firer Diesel Locomotive Relationship Specialty Start Date End Date Shayla Alford D.O. PCP - General Internal Medicine 05/22/[address] [phone] documented as of this encounter
--- OUTSIDE RECORDS SUMMARY | 2022-05-28 06:36 | XMS_ITS | Encounter Summary ---
:1945 Author Organization [facility] Address [address] [place] [address] Care Team Providers Name Role Phone Shayla Alford D.O. Primary Care Provider [phone] Reason for Visit Reason Comments Appointment Encounter Details Date Type Department Care Team Description 01/31/2022 Clinical Communication Department of Urology Lea Morin, Appointment in [facility] R.N. [address] [place] [phone] [place], [place] [phone] Social History Tobacco Use Types Packs/Day Years [...] do you attend zoroastrianism or Never 2021 rastafari services? Do you [...] have completed or the highest Martin, MEd, OPENER, CAYDEN) degree you have received? Sex Assigned at Date Recorded Male 05/21/2018 2:34 PM CDT documented as of this encounter Miscellaneous Notes Telephone Encounter - Jimena Copeland R.N. - 02/04/2022 4:31 PM CDT Patient scheduled for follow-up on 03/04/22 per patients Diallo. Telephone Encounter - Lea Morin R.N. - 02/04/2022 10:14 AM CDT Left message for living facility nurse hospice clinical manager, Viri, following up with last week to inquire about care conference, non hat ironer cytology urine test if resulted to fax [...] R.N. - 01/31/2022 10:06 AM CDT [facility] nurse hospice clinical manager, Viri, called urology to confirm urology appointment andto inform team that patient is currently in rehab at the facility but is total care and total lift. Patient does not have a catheter but Viri is willing to collect urine for non hat ironer cytology. Viri further mentions again patient is total care, total lift and inquired about priority in care for patient as she's unsure if she'd be able to arrange transportation. With discussion, [facility], massive stroke who is total care and total lift and not sure howwell he'll tolerate transportation or clinic visit. [facility] with staff and patient's is today, 01/31/22, in which Viri is asked to inform urology if any discussion about plan of care, in particular to clinic urology visits, bladder cancer. Patient is due for 3 month bladder cancer surveillance, which was scheduled 02/11/22 and cancelled due to patient's current situation and Dr. Bernal not being in clinic that day. Non hat ironer cytology urine order faxed to [facility] for Viri to collect urine and will fax back to [facility]. Will also inform Dr. Bernal of patient's change in health and advise if anything further needs. documented in this encounter Plan of Treatment Not on filedocumented as of this encounter Visit Diagnoses Not on filedocumented in this encounter Additional Health Concerns Assessment Noted Time PHQ-9 Depression Total Score: 18 04/28/2018 11:27 AM C DT documented as of this encounter Care Teams Hand I Cutter Relationship Specialty Start Date End Date Shayla Alford D.O. PCP - General Internal Medicine 05/22/20 [address] [place] [phone] documented as of this encounter
--- OUTSIDE RECORDS SUMMARY | 2022-05-28 06:36 | XMS_ITS | Encounter Summary ---
:1945 Author Organization [facility] Address [address] [place] [address] Care Team Providers Name Role Phone Shayla Alford D.O. Primary Care Provider [phone] Encounter Details Date Type Department Care Team Description 11/07/2021 Hospital Encounter Department of Cirilo Bernal Neoplasm Of Laboratory Medicine Pato Mims Bladder Posterior in [place], [address] [address] [place] [phone] Social History Tobacco Use [...] do you attend caodaism or Never 2021 religion services? Do you [...] have completed or the highest Martin, MEd, RADIATION CONTROL SPECIALIST, CAYDEN) degree you have received? Sex [...] (FREESTYLE SOFYA) times a day. [facility] Sofya sensor 5 times daily and [...] PEN NEEDLE, DIABETIC Yani Fine 30 0 [facility] disposable needles. For use with Insulin Pens, 4 times daily SYRINGE-NEEDLE,INSULIN,0 0 .5 ML (INSULIN SYRINGE [facility]) torsemide (DEMADEX) 20 Take 1 tablet (20 [...] sm Results for this AEROBIC + SUSC, MANAGER OF FINANCIAL PLANNING Of Bladder Posterior proc edure are in URINE Wall (HCC) the results section. documented in this encounter Results (ABNORMAL) Bacterial Culture, Aerobic + Susc, Urine (11/07/2021 8:30 AM MANAGER OF FINANCIAL PLANNING) Analysis Performed At [facility] Time Signature Urine Culture Mixed 11/08/2021 [facility] surekha. (A) 10:55 AM MANAGER OF FINANCIAL PLANNING Specimen Anatomical Collection Method Collection Time Receive d Time (Source) Location / / Volume Laterality Urine (Urine, 11/07/2021 8:30 AM 11/07/19 22 2:14 Midstream) MANAGER OF FINANCIAL PLANNING PM MANAGER OF FINANCIAL PLANNING Comment: Specimen Source Site: Urine Mid stream Prasanna Bernal M.D. 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 PCP - General Internal Medicine 05/22/[address] [phone] documented as of this encounter
--- OUTSIDE RECORDS SUMMARY | 2022-05-28 06:36 | XMS_ITS | Encounter Summary ---
:1945 Author Organization [facility] Address [address] [place] [address] Care Team Providers Name Role Phone Shayla Alford D.O. Primary Care Provider [phone] Encounter Details Date Type Department Care Team Description 11/30/2021 Clinical Communication Department of Internal Andrei Dejesus Medicine in [place], [place], [place].O Mauro [place] [address] [place] [phone] Social History Tobacco Use Types Packs/Day Years [...] do you attend zoroastrianism or Never 2021 lutheran services? Do you [...] or the highest Martin, MEd, DIRECTOR OF PRODUCT MARKETING, CAYDEN) degree you have received? Sex Assigned at Date Recorded Male 05/21/2018 2:34 PM CDT documented as of this encounter Miscellaneous Notes Telephone Encounter - Yari Lee, C.M.A. - 11/30/2021 1:57 PM [facility] Information Discussed Informed patient of providers message. [...] following references were used: provider Dr. Reid [facility] Telephone Encounter - [place]-Shayla Dejesus D.O. - 11/30/2021 12:59 PM [facility] Thank you for the information . This [...] by: Shayla Alford D.O. 11/30/21 1:01 PM [facility] Telephone Encounter - Arlyn Batista R.N. - 11/30/2021 12:13 PM CST Patient reporting that he has tested positive COVID at [place] today. Was going for dental appointment and test prior to colonoscopy. Both were cancelled and needed to be rescheduled. Patient states he alsohad questions regarding colonoscopy prep but will wait until appointment with Dr. Reid on January 02 at appointment. Patient will call back if he has questions prior to then. [facility] documented in this encounter Plan of Treatment Not on filedocumented as of this encounter Visit Diagnoses Not on filedocumented in this encounter Additional Health Concerns Infection Onset Date Last Indicated Resolved Time COVID19 Pending 11/29/2021 11/29/2021 12/19/2021 5:54 AM CDT Assessment Noted Time PHQ-9 Depression Total Score: 18 04/28/2018 11:27 AM C DT documented as of this encounter Care Teams Lead Handler Relationship Specialty Start Date End Date Shayla Alford D.O. PCP - General Internal Medicine 05/22/[address] [phone] documented as of this encounter
--- OUTSIDE RECORDS SUMMARY | 2022-05-28 06:36 | XMS_ITS | Encounter Summary ---
:1945 Author Organization [facility] Address [address] [place] [address] Care Team Providers Name Role Phone Shayla Alford D.O. Primary Care Provider [phone] Encounter Details Date Type Department Care Team Description 01/10/2022 Clinical Communication Department of Internal Andrei Dejesus Medicine in [place], [place], [place].O Mauro [place] [address] [place] [phone] Social History Tobacco Use Types Packs/Day Years [...] do you attend yarsanism or Never 2021 methodist services? Do you [...] have completed or the highest Martin, MEd, PERSONAL BANKING ADVISOR, CAYDEN) degree you have received? Sex [...] Riana from [facility] returning call, or [phone] Telephone Encounter - Shanon Glover - 01/11/2022 8:15 AM CDT Staff is calling in and would like a nurse to call her back, to let her know if the fax was received. She also stated that you could call the clinical coordinator , Viri at [phone]. Please advise. Telephone Encounter - Faina Deleon [...] documented as of this encounter Care Teams Compressed Gases Tester Relationship Specialty Start Date End Date Shayla Alford D.O. PCP - General Internal Medicine 05/22/20 [address] [place] [phone] documented as of this encounter
--- OUTSIDE RECORDS SUMMARY | 2022-05-28 06:36 | XMS_ITS | Encounter Summary ---
:1945 Author Organization [facility] Address [address] [place] [address] Care Team Providers Name Role Phone Shayla Alford D.O. Primary Care Provider [phone] Reason for Referral Outpatient (Routine) - Closed Specialty Diagnoses / Procedures Referred By Contact Refer red To Contact Diagnoses Preoperative Exam Shayla Alford [facility] Procedures ECG 12 Lead D.O. [address] [place] [phone] Referral ID Status Reason Start Date Expiration Date Visits Requ ested Visits Authorized [id number] Closed 11/06/2021 11/06/2022 1 1 ASSISTANT Reason for Visit Outpatient (Routine) - Closed Specialty Diagnoses / Procedures Referred By Contact Refer red To Contact Diagnoses Preoperative Exam Shayla Alford [facility] [place] [facility] Procedures ECG 12 Lead D.O. [address] [place] [phone] Referral ID Status Reason Start Date Expiration Date Visits Requ ested Visits Authorized [id number] Closed 11/06/2021 11/06/2022 1 1 Encounter Details Date Type Department Care Team Description 11/07/2021 Hospital Encounter Department of Rocío Preop erative Exam Laboratory Medicine in , [place]. [place] [address] [place] [phone] Social History Tobacco Use Types Packs/Day [...] do you attend yazdanism or Never 2021 muslim services? Do you [...] have completed or the highest Martin, MEd, STEAM TRAP MAN, CAYDEN) degree you have received? Sex [...] AM Preoperative Exam Resu lts for this PHYS ASSISTANT procedure are i n the results section . documented in this encounter Results ECG 12 Lead (11/07/2021 8:40 AM PHYS ASSISTANT) P athologist Signature Ventricular Rate 47 BPM MUSE ECG/Min MI Interval 230 ms MUSE QRSD Interval 112 ms MUSE QT Interval 498 ms MUSE QTC Interval 440 ms MUSE P [place] 87 degrees MUSE R [place] -35 degrees MUSE T Wave [place] 6 degrees MUSE Specimen Anatomical Collection Method Collection Time Receive d Time (Source) Location / / Volume Laterality 11/07/2021 8:40 AM 9:10 PHYS ASSISTANT AM PHYS ASSISTANT Impressions MUSE - 11/07/2021 9:10 AM PHYS ASSISTANT Marked sinus bradycardia with 1st degree [...] as of this encounter Care Teams Building Services Supervisor Relationship Specialty Start Date End Date Shayla Alford D.O. PCP - General Internal Medicine 05/22/20 [address] [place] [phone] documented as of this encounter
--- OUTSIDE RECORDS SUMMARY | 2022-05-28 06:36 | XMS_ITS ---
:1945 Author Organization [facility] Address [address] [place] [address] Care Team Providers Name Role Phone Shayla Alford D.O. Primary Care Provider [phone] Active Problems Patient Care Coordination Note Formatting [...] walk as needed. Community Services/County Contacts: [place] s erkym. 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 Treatments may have been administered in another system.
--- OUTSIDE RECORDS SUMMARY | 2022-05-28 06:36 | XMS_ITS | Encounter Summary ---
:1945 Author Organization [facility] Address [address] [place] [address] Care Team Providers Name Role Phone Shayla Alford D.O. Primary Care Provider [phone] Encounter Details Date Type Department Care Team Description 03/12/2022 Clinical Communication Department of Sleep Mari Lala, Medicine in Pato Vila, M.P .H. [place] [address] [place], [place] [phone] Social History Tobacco Use Types Packs/Day [...] do you attend samaritan or Never 2021 nondenominational services? Do you [...] have completed or the highest Martin, MEd, HIV PREVENTION SPECIALIST, CAYDEN) degree you have received? Sex [...] CDT Reason for Communication: Nghia calling from [facility], Dr. Amador is wondering if heshould discontinue ASA med.. Patient is currently taking Plavix. Wondering if they can discontinue taking aspirin. Call ALLEY Meredith at Current or [phone] Can Nursing/Provider leave a detailed message?: yes [...] documented as of this encounter Care Teams Verifying Specialist Relationship Specialty Start Date End Date Shayla Alford D.O. PCP - General Internal Medicine 05/22/[address] [phone] documented as of this encounter
--- OUTSIDE RECORDS SUMMARY | 2022-05-28 06:36 | XMS_ITS | Encounter Summary ---
:1945 Author Organization [facility] Address [address] [place] [address] Care Team Providers Name Role Phone Shayla Alford D.O. 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 [facility] Procedures Cystoscopy (specific provider) [address] [place] [address] Referral ID Status Reason Start Date Expiration Date Visits V isits Requested Authorized [id number] Authorized 11/19/2021 11/19/2022 1 1 Y SPECIALIST Reason for Visit Reason Comments Post-op Bladder Cancer Outpatient (Routine) - Closed Specialty Diagnoses / Procedures Referred By Contact Refer red To Contact Urology Prasanna Bernal M.D. [facility] Region [address] [place] [address] Referral ID Status Reason Start Date Expiration Date Visits Requ ested Visits Authorized [id number] Closed 10/25/2021 10/25/2022 1 1 Encounter Details Date Type Department Care Team Description 11/19/2021 Office Visit Department of Urology Prasanna Bernal Mal ignant Neoplasm Of in Moise Patel M.D. Bladder Posterior Wall [address] ([facility]) (Primary Dx) [place] [phone] [...] do you attend denominational or Never 2021 judaism services? Do you [...] have completed or the highest Martin, MEd, DOCTOR OF MEDICINE, CAYDEN) degree you have received? Sex Assigned at Date Recorded Male 05/21/2018 2:34 PM CDT documented as of this encounter Last Filed Vital Signs Vital Sign Reading Time Taken Comments Blood Pressure - - Pulse 57 11/19/2021 8:04 AM DAIRY SPECIALIST Temperature - - Respiratory Rate - - Oxygen Saturation 98% 11/19/2021 8:04 AM DAIRY SPECIALIST room ai r Inhaled Oxygen Concentration - [...] time. Prasanna Bernal M.D. 11/19/21 8:45 AM DAIRY SPECIALIST Answers for HPI/ROS submitted by the patient on 10/09/2021 No general issues: Yes No eye issues: Yes No ENT issues: Yes No heart issues: Yes No respiratory issues: Yes Diarrhea: Yes No muscle/bone issues: Yes No skin issues: Yes Loss of balance or tendency to fall easily: Yes No mental health issues: Yes Bruises/bleeds easily: Yes Frequent urination: Yes Incontinence (urine leakage): Yes Y SPECIALIST documented in this encounter Plan of Treatment Scheduled Orders Name Type Priority Associated Diagnoses Order S chedule Cytology Non-RAILROAD CAR LOADER Pathology and Routine Malignant Neoplasm Expe cted: (Scheduled) Cytology Of Bladder Posterior 022 Wall (HCC) (Approximate), Expires: 11/19/2022 documented as of this encounter Visit Diagnoses Diagnosis 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 PCP - General Internal Medicine 05/[address] [place] [address] documented as of this encounter
--- OUTSIDE RECORDS SUMMARY | 2022-05-28 06:36 | XMS_ITS | Encounter Summary ---
:1945 Author Organization [facility] Address [address] [place] [address] Care Team Providers Name Role Phone Shayla Alford D.O. Primary Care Provider [phone] Reason for Visit Reason Comments Pre-op Exam Diabetes Mellitus Knee Pain Fell about a month ago Outpatient (Routine) - Closed Specialty Diagnoses / Procedures Referred By Contact Refer red To Contact Community Internal Diagnoses Preoperative Exam ARMAAN Alford [facility] Tulio Mcguire [address] [place] [address] Referral ID Status Reason Start Date Expiration Date Visits Requ ested Visits Authorized [id number] Closed 09/13/2021 09/13/2022 1 1 Encounter Details Date Type Department Care Team Description 11/29/2021 Office Visit Department of Internal Rocío sanders Systolic (Congestive) Heart Failure (HCC) (Primary Dx); Medicine in [facility] , Coleman Mcguire Preoperative Exam; [place] [address] Diabetes Mellitus Type 2 Hyperglycemia ( HCC); [address] [place], [place] Hypothyroidism; [place] [address] Hypertension Essential Primary [address] Social History Tobacco [...] do you attend synagogue or Never 2021 congregation services? Do you [...] completed or the highest Martin, MEd, DATA MODELING SPECIALIST, CAYDEN) degree you have received? Sex Assigned at Date Recorded Male 05/21/2018 2:34 PM CDT documented as of this encounter Last Filed Vital Signs Vital Sign Reading Time Taken Comments Blood Pressure 121/65 11/29/2021 11:27 AM DIAMOND CLEAVER Pulse 65 11/29/2021 11:27 AM DIAMOND CLEAVER Temperature 36.8 ??C (98.2 ??F) 11/29/2021 11:27 AM DIAMOND CLEAVER Respiratory Rate - - Oxygen Saturation - - Inhaled Oxygen Concentration - - Weight 101 kg (223 lb 1.7 oz) 11/29/2021 11:27 AM DIAMOND CLEAVER Height - - Body Mass Index 29.6 10/09/2021 3:28 PM DIAMOND CLEAVER documented in this encounter Patient Instructions Patient InstructionsShayla Alford D.O. - 11/29/2021 11:30 AM DIAMOND CLEAVER Hold Plavix 5 days before procedure or starting today Take half of your long acting Lantus friday evening (14 units) Hold your short acting insulin or NovoLog the AM of the procedure Meet with our pharmacist Zoya for insulin adjustment since you are Starting Ozempic. OND CLEAVER documented in this encounter H&P Notes Shayla Alford D.O. - 11/29/2021 11:30 AM CST INTERNAL MEDICINE PREOPERATIVE EXAM: DATE OF SERVICE 11/29/2021 LOCATION OF SERVICE [facility] CHIEF COMPLAINT/REASON FOR VISIT Preoperative [...] 11/17/2020 showed an EF of 50%, with wcsh-gw-bynlqfkw mitral valve regurgitation. His blood pressure has [...] at 9.5. The patient follows with the [facility] where he has a dietitian as well as an maintenance and operations supervisor. Due to worsening kidneyfunction, his metformin had [...] was not able to obtainTrulicity at the [facility] but he was able to receive Ozempic. [...] (HCC) 10/16/2009 Pulmonary symptomatology, diagnosis at the [facility] unclear, but probably some degree of COPD. [...] INSERTION INTRAOCULAR LENS Left 04/2008 At the [facility] ??? LASER OF PROSTATE W/ GREEN LIGHT [...] Master's degree (e.g., MA, MS, Martin, MEd, DATA MODELING SPECIALIST, CYADEN) Occupational History Employer: RETIRED Tobacco Use ??? [...] and Family: Once a week ??? Attends Latter-Day Services: Never ??? Active Member of Clubs [...] mL 3 ??? SYRINGE-NEEDLE,INSULIN,0.5 ML (INSULIN [facility]) ??? torsemide (DEMADEX) 20 mg tablet Take [...] 11/17/2020 showed an EF of 50%, with qgsz-dh-ioecvbhl mitral valve regurgitation. His blood pressure has [...] has a dietitian as well as an maintenance and operations supervisor. Due to worsening kidneyfunction, his metformin had [...] was not able to obtainTrulicity at the [facility] but he was able to receive Ozempic. [...] by: Shayla Alford D.O. 11/29/21 11:35 AM DIAMOND CLEAVER OND CLEAVER documented in this encounter Plan of Treatment [...] documented as of this encounter Care Teams Chainstitch Tunnel Elastic Operator Relationship Specialty Start Date End Date Shayla Alford D.O. PCP - General Internal Medicine 05/22/[address] [place] [address] documented as of this encounter
--- OUTSIDE RECORDS SUMMARY | 2022-05-28 06:36 | XMS_ITS | Encounter Summary ---
:1945 Author Organization [facility] Address [address] [place] [address] Care Team Providers Name Role Phone Shayla Alford D.O. Primary Care Provider [phone] Reason for Referral Physical Therapy (Routine) - Authorized Specialty Diagnoses / Procedures Referred By Contact Refer red To Contact Diagnoses Stroke (HCC) Mari Lala M.D., External, Referring M.P.H. Provider [address] [place] [address] Referral ID Status Reason Start Expiration Visits Visits Date Date Requested Authorized [id number] Authorized Service not 03/25/2022 03/25/2023 1 1 available in [facility] Encounter Details Date Type Department Care Team Description 03/19/2022 Clinical Communication Department of Sleep Mari Lala, Medicine in Pato Vila, M.P .H. [place] [address] [place], [place] [address] [phone] Social History Tobacco Use Types Packs/Day Years [...] do you attend spiritism or Never 2021 methodist services? Do you [...] completed or the highest Martin, MEd, HEAD START DIRECTOR, CAYDEN) degree you have received? Sex [...] Referral to go to Ruchi Roberto in [place]. Telephone Encounter - Mamta Olivares - 03/19/2022 1:27 PM CDT Reason for Communication: Patients is calling he has had a stroke and is in [facility] and the PT department there are discontinuing his PT because they feel they have gotten him as far as they can. They would like to have him evaluated and physical therapy at [facility] to see ifadditional progress can be made. [...] documented as of this encounter Care Teams Caterpillar Operator Relationship Specialty Start Date End Date Shayla Alford D.O. PCP - General Internal Medicine 05/22/20 [address], [place] [address] documented as of this encounter
--- OUTSIDE RECORDS SUMMARY | 2022-05-28 06:36 | XMS_ITS | Encounter Summary ---
:1945 Author Organization [facility] Address [address] [place] [address] Care Team Providers Name Role Phone Shayla Alford D.O. Primary Care Provider [phone] Reason for Visit Reason Comments Form Review [facility] Encounter Details Date Type Department Care Team Description 02/28/2022 Clinical Communication Department of Alexys marin Review Internal Medicine Shayla queen ([facility] [place], D.O. - labs ) [place] [address] [place] [address] Social History Tobacco Use [...] do you attend orthodox or Never 2021 evangelical services? Do [...] completed or the highest Martin, MEd, NURSING DEPARTMENT CHAIRPERSON, CAYDEN) degree you have received? Sex Assigned at Date Recorded Male 05/21/2018 2:34 PM CDT documented as of this encounter Miscellaneous Notes Telephone Encounter - Vanesa Lee - 03/04/2022 8:40 AM CDT Form completed by the provider. Faxed back and sent to scanning. Telephone Encounter - Vanesa Lee - 02/28/2022 2:45 PM CDT Form emailed to Dr. Franklin Dejesus for review/signature LAPEL PADDER BLINDSTITCH: Ugo Blanco PHONE NUMBER: [phone] INFO REQUESTED: Labs INSTRUCTIONS: Fax back to [phone] documented in this encounter Plan of Treatment Not on filedocumented as of this encounter Visit Diagnoses Not on filedocumented in this encounter Additional Health Concerns Assessment Noted Time PHQ-9 Depression Total Score: 18 04/28/2018 11:27 AM C DT documented as of this encounter Care Teams Elevated Work Platform Operator Relationship Specialty Start Date End Date Shayla Alford D.O. PCP - General Internal Medicine 05/22/[address] [address] documented as of this encounter
--- OUTSIDE RECORDS SUMMARY | 2022-05-28 06:36 | XMS_ITS | Clinical Summary ---
:1945 Author Organization [facility] [place] [address] Care Team Providers Name Role Phone Shayla Alford DO Primary Care Provider [phone] Allergies Active Allergy Reactions Severity Noted Date Comments Amlodipine Dizziness Medium 06/22/2018 Reports juanito hernandez dizziness. Was told by a [place] provider t o never take again. 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 What are JONNATHAN's challenges, stressors, or barriers? [...] Team Description 05/14/2022 Lab Requisition Natasha Coles, CLERK ANALYST 05/07/2022 Hospital Encounter Cody Lala, Ren Granados, PT 05/07/2022 Travel 05/01/2022 Hospital Encounter Angeles Reid, PT 05/01/2022 Travel 04/26/2022 Hospital Encounter Cody Lala MD Thomas, Cameron, PT 04/26/2022 Travel 04/12/2022 Hospital Encounter Cody Lala MD Encounter for person Ren Richard, PT [facility] 04/12/2022 Travel 03/29/2022 Transcribe Orders [...] Comments Blood Pressure 131/68 11/14/2021 11:00 AM REEL ASSEMBLER Pulse 52 11/14/2021 11:00 AM REEL ASSEMBLER Temperature 36.4 ??C (97.5 ??F) 11/14/2021 9:30 AM REEL ASSEMBLER Respiratory Rate 18 11/14/2021 11:00 AM REEL ASSEMBLER Oxygen Saturation 99% 11/14/2021 11:00 AM REEL ASSEMBLER Inhaled Oxygen Concentration - - Weight 97.3 kg (214 lb 8.1 oz) 11/21/2021 2:42 PM REEL ASSEMBLER Height 184.9 cm (6' 0.8) 11/21/2021 2:42 PM REEL ASSEMBLER Body Mass Index 28.46 11/21/2021 2:42 PM REEL ASSEMBLER Plan of Treatment Health Maintenance Due Date [...] BASIC METABOLIC PANEL (05/21/2022 7:38 AM CDT) [facility] gist Method Time Signature SODIUM 142 135 - 145 05/21/2022 [place] mmol/L 10:14 AM [facility] POTASSIUM 4.5 3.5 - 5.0 05/21/2022 [place] mmol/L 10:14 AM [facility] CHLORIDE 109 98 - 110 05/21/2022 [place] mmol/L 10:14 AM [facility] CO2,TOTAL 23 21 - 31 05/21/2022 [place] mmol/L 10:14 AM [facility] ANION GAP 10 5 - 18 05/21/2022 [place] 10:14 AM [facility] GLUCOSE 92 65 - 100 05/21/2022 [place] mg/dL 10:14 AM [facility] CALCIUM 9.0 8.5 - 10.5 05/21/2022 [place] mg/dL 10:14 AM [facility] BUN 25 8 - 25 05/21/2022 [place] mg/dL 10:14 AM [facility] CREATININE 1.30 (H) 0.72 - 05/21/2022 [facility] [place] 1.25 mg/dL 10:14 AM [facility] BUN/CREAT RATIO 19 10 - 20 05/21/2022 [facility] [place] 10:14 AM [facility] eGFR 56 (L) >90 05/21/2022 [place] mL/min/1.7 10:14 AM [facility] 3m2 LABORATORY Comment: As of 2021, eGFR [...] Organization Address City/State/ZIP Code Phon e Number [facility]ORY [address] [place] [address] LAB TRACKING EVENT (02/26/2022 11:27 AM CDT) Specimen Anatomical Collection Method Collection Time Receive d Time (Source) Location / / Volume Laterality Other (Other) Client Collect / 02/26/2022 11:27 2021 Unknown AM CDT 11:21 PM CDT Doctor Unknown LAB BILL ONLY Performing Organization Address City/State/ZIP Code Phon e Number [id number] [address] [place] [address] LABORATORY-CENTRAL [address] LABORATORY PATH URINE CYTOLOGY (02/26/2022 11:27 AM CDT) Component Value Ref Test Analysis Performed At [facility] gist Range Method Time Signature Case Report Medical Cytology Report ? Case: [id number] ? 02/27/2022 [facility] Authorizing Provider: ??Unkn own, Doctor ?Collected: ? 02/26/2022 1127 ? 5:35 PM HEAL TH Ordering Location: ? [facility] CENTRAL LAB ?Received: ?02/27/2022 0833 ? [...] P M Comment A) According to 02/27/2022 [facility] system 5:35 PM HEALTH of reporting [...] neoplasm. Clinical The patient is a 02/27/2022 [facility] 76 y.o. male 5:35 PM HEALTH with a history CDT LABORATORY-C of bladder ENTRAL cancer. LABORATORY Gross 02/27/2022 [facility] Description A) SOURCE: Urine 5:35 PM HEALTH CDT LABORATORY-C The specimen consists of 70 cc of yellow hazy fluid from which the following is prepared: ENTRAL ? -1 Papanicolaou stained ThinPrep slide LABORATORY Microscopic All slides were reviewed microscopically. 02/27/2022 [facility] Description 5:35 PM HEALTH Specimen adequacy: Adequate for interpretation. CDT LABORATORY-C ENTRAL The microscopic appearance substantiates the diagnosis. LABORATORY Additional Cytology is screened at [facility], Central Laboratory - [address], [place] [address] and [facility] - [address] [place] [address] and 02/27/2022 [facility] Laboratory - [address] [place] [address] 5:35 PM HEALTH CDT LABORATORY-C ENTRAL Interpreted at [facility], Central Laboratory - [address], [place] [address] LABORATORY Specimen Anatomical Collection Method Collection Time Receive d Time (Source) Location / / Volume Laterality Urine URINE SPECIMEN / 02/26/2022 11:27 022 8:33 Unknown AM CDT AM CDT Doctor Unknown PATHOLOGY/CYTOLOGY Performing Organization Address City/State/ZIP Code Phon e Number [facility] [address] [place] [address] LABORATORY-CENTRAL 2000 LABORATORY from Last 3 Months Insurance Payer Benefit Plan / Subscriber ID Effective Dates Phone Addre ss Type Group MEDICARE PART A MEDICARE PART A [id number] 2008-Presen ATTN: CLAIMS - HB USE ONLY HB ONLY t [address] [place] [address] [employer] [place] MEDICARE [id number] Effective for [address] [place] [address] [employer] [place] MEDICARE [id number] 2021-Present [address] [place] [address] Jonnathan Costa Personal/Family Self 1945 [address] (Home) [place] [address] Advance Directives Latest Code Status on File [...] 6:07 AM 08/28/2016 2:31 PM Care Teams Slot Machine Key Person Relationship Specialty Start Date End Date Shayla Alford DO PCP - General Internal Medicine 12/18/20 [address], [place] [address]
--- OUTSIDE RECORDS SUMMARY | 2022-05-28 06:36 | XMS_ITS | Encounter Summary ---
:1945 Author Organization [facility] Address [address] [place] [address] Care Team Providers Name Role Phone Shayla Alford D.O. Primary Care Provider [phone] Reason for Visit Reason Comments canceled colonoscopy Encounter Details Date Type Department Care Team Description 01/01/2022 Clinical Communication Department of Francisco Aguilar [facility] General Surgery in P, M.DMauro colonoscopy [place], [place] [address] [place] [address] Social History Tobacco Use [...] do you attend baptism or Never 2021 catholic services? Do you [...] for the very basics like Not h nedla at all 10/09/2021 food, housing, medical care, [...] have completed or the highest Martin, MEd, TARIFF COMPILER, CAYDEN) degree you have received? Sex Assigned [...] to remove from [employer], patient removed from [place]. documented in this encounter Plan of Treatment Not on filedocumented as of this encounter Visit Diagnoses Not on filedocumented in this encounter Additional Health Concerns Assessment Noted Time PHQ-9 Depression Total Score: 18 04/28/2018 11:27 AM C DT documented as of this encounter Care Teams Gold Blower Relationship Specialty Start Date End Date Shayla Alford D.O. PCP - General Internal Medicine 05/22/[address] [address] documented as of this encounter
--- OUTSIDE RECORDS SUMMARY | 2022-05-28 06:36 | XMS_ITS | Encounter Summary ---
:1945 Author Organization [facility] Address [address] [place] [address] Care Team Providers Name Role Phone Shayla Alford D.O. Primary Care Provider [phone] Encounter Details Date Type Department Care Team Description 03/27/2022 Clinical Communication Department of Neurology Mari Lala, in [place] [facility] cameron Whyte, M.P.H. [address] [place] [address] [address] [facility] [place] [address] Social History Tobacco Use Types Packs/Day [...] do you attend christian or Never 2021 bahai services? Do you [...] completed or the highest Martin, MEd, BULK PALLET BUILDER, CAYDEN) degree you have received? Sex [...] 87 days after being in hospital in [place]. Today is the 87 th day. Need [...] as of this encounter Care Teams Online Marketing Director Relationship Specialty Start Date End Date Shayla Alford D.O. PCP - General Internal Medicine 05/22/[address] [address] documented as of this encounter
--- OUTSIDE RECORDS SUMMARY | 2022-05-28 06:37 | XMS_ITS | Encounter Summary ---
:1945 Author Organization [facility] Address [address] [place] [address] Care Team Providers Name Role Phone Shayla Alford D.O. Primary Care Provider [phone] Encounter Details Date Type Department Care Team Description 10/09/2021 Hospital Encounter Department of Prateek Ferrer Primary; Laboratory Medicine Melissa, Chronic Kidney Disease (CKD), Stage 3b Glomerular Filtration Rate (GFR) 30 To 44 (HCC) [facility] [address] [facility] [address] [place] [phone] Social History Tobacco Use Types Packs/Day Years [...] do you attend pentecostal or Never 2021 christianity services? Do you [...] have completed or the highest Martin, MEd, COUNTER TOP MAKER, CAYDEN) degree you have received? Sex [...] Results f or this PANEL, S AM ADMINISTRATIVE REPRESENTATIVE Essential Primar y procedure are in Chronic Kidney the results Disease (CKD), Stage section . 3b Glomerular Filtration Rate (GFR) 30 To 44 (HCC) URIC ACID, S/P Routine 10/09/2021 11:08 Hypertension Results f or this AM ADMINISTRATIVE REPRESENTATIVE Essential Primar y procedure are in Chronic Kidney the results Disease (CKD), Stage section . 3b Glomerular Filtration Rate (GFR) 30 To 44 (HCC) documented in this encounter Results Uric Acid (10/09/2021 11:08 AM ADMINISTRATIVE REPRESENTATIVE) P athologist Signature Uric Acid, P 7.5 3.7 - 8.0 10/09/2021 [facility] mg/dL 4:28 PM ADMINISTRATIVE REPRESENTATIVE Specimen Anatomical Collection Method Collection Time Receive d Time (Source) Location / / Volume Laterality Blood (Blood, 10/09/2021 11:08 10/09/2021 4:05 Venous) AM ADMINISTRATIVE REPRESENTATIVE PM ADMINISTRATIVE REPRESENTATIVE Melissa Blackmon LAB BLOOD ADD-ON Performing Organization Address City/State/ZIP Code Phon e Number [facility] [address] [place] [address] [facility] [place] [address] [facility] [address] (ABNORMAL) Renal Function Panel (10/09/2021 11:08 AM ADMINISTRATIVE REPRESENTATIVE) Analysis Performed At Patho logist Time Signature Potassium, P 4.6 3.6 - 5.2 10/09/2021 [place] mmol/L 11:36 AM ADMINISTRATIVE REPRESENTATIVE Sodium, P 133 (L) 135 - 145 10/09/2021 [place] mmol/L 11:36 AM ADMINISTRATIVE REPRESENTATIVE Chloride, P 98 98 - 107 10/09/2021 [place] mmol/L 11:36 AM ADMINISTRATIVE REPRESENTATIVE Bicarbonate, P 22 22 - 29 10/09/2021 [place] mmol/L 11:35 AM ADMINISTRATIVE REPRESENTATIVE Anion Gap, P 13 7 - 15 10/09/2021 [place] 11:36 AM ADMINISTRATIVE REPRESENTATIVE BUN (Blood Urea 38 (H) 8 - 24 10/09/2021 [place] Nitrogen), P mg/dL 11:35 AM ADMINISTRATIVE REPRESENTATIVE Creatinine 1.69 (H) 0.74 - 10/09/2021 [place] 1.35 mg/dL 11:35 AM ADMINISTRATIVE REPRESENTATIVE eGFR-Black/Afri 44 (L) >=60 10/09/2021 [place] can [place] mL/min/BSA 11:35 AM ADMINISTRATIVE REPRESENTATIVE Comment: ----ADDITIONAL INFORMATION---- Estimated GFR calculated using the 2009 CKD_EPI creatinine equation. eGFR Non-Black/ 38 (L) >=60 mL/min/BSA 10/09/2021 11:35 AM ADMINISTRATIVE REPRESENTATIVE [facility] [place] Comment: ----ADDITIONAL INFORMATION---- Estimated GFR calculated using the 2009 CKD_EPI creatinine equation. Calcium, Total, P 8.9 8.8 - 10.2 mg/dL 10/09/2021 11:3 5 AM ADMINISTRATIVE REPRESENTATIVE [facility] Glucose, P 440 (CH) 70 - 140 mg/dL 10/09/2021 12:34 PM ADMINISTRATIVE REPRESENTATIVE [facility] Albumin, P 3.6 3.5 - 5.0 g/dL 10/09/2021 11:35 AM ADMINISTRATIVE REPRESENTATIVE [facility] Phosphorus (Inorganic), P 4.4 2.5 - 4.5 mg/dL 10/09/19 4:28 PM ADMINISTRATIVE REPRESENTATIVE [facility] Specimen Anatomical Collection Method Collection Time Receive d Time (Source) Location / / Volume Laterality Blood (Blood, 10/09/2021 11:08 10/09/2021 4:05 Venous) AM ADMINISTRATIVE REPRESENTATIVE PM ADMINISTRATIVE REPRESENTATIVE Narrative [facility] - 10/09/2021 4:28 PM ADMINISTRATIVE REPRESENTATIVE Specimen Information: Specimen ID: [id number] Specimen Type: Blood Specimen Collection Start Date: 10/09/19 11:08 AM Specimen Received Date: 10/09/2021 ??4:0 5 PM Specimen ID: [id number] Specimen Type: Blood Specimen Collection Start Date: 10/09/19 11:08 AM Specimen Received Date: 10/09/2021 11:09 AM Melissa Blackmon LAB BLOOD ADD-ON Performing Organization Address City/State/ZIP Code Phon e Number [facility]- [address] [place], [place] [id number] [place] [address] [place] [address] System in [place] [address] [place] [address] [facility] [address] documented in this encounter Visit Diagnoses Diagnosis Hypertension Essential Primary Chronic Kidney Disease (CKD), Stage 3b G lomerular Filtration Rate (GFR) 30 To 44 (HCC) documented in this encounter Additional Health Concerns Assessment Noted Time PHQ-9 Depression Total Score: 18 04/28/2018 11:27 AM C DT documented as of this encounter Care Teams Unit Aid Relationship Specialty Start Date End Date Shayla Alford D.O. PCP - General Internal Medicine 05/22/[address] [place] [address] documented as of this encounter
--- OUTSIDE RECORDS SUMMARY | 2022-05-28 06:37 | XMS_ITS | Encounter Summary ---
:1945 Author Organization [facility] Address [address] [place] [address] Care Team Providers Name Role Phone Shayla Alford D.O. Primary Care Provider [phone] Reason for Visit Appointment Request (Routine) - Closed Specialty Diagnoses / Procedures Referred By Contact Refer red To Contact Urology Referral ID Status Reason Start Date Expiration Date Visits Requ ested Visits Authorized [id number] Closed 07/23/2021 07/23/2022 1 1 Encounter Details Date Type Department Care Team Description 09/19/2021 Nurse Only Department of Urology in [facility] [place] [address] [place] [phone] Social History Tobacco Use Types Packs/Day Years [...] do you attend cheondoism or Never 2021 worship services? Do you [...] have completed or the highest Martin, MEd, PROFILING MACHINE SET UP OPERATOR TOOL, CAYDEN) degree you have received? Sex Assigned [...] scheduled for the cystoscopy. Lea Morin R.N. INE OPERATOR SLITTER TECHNICIAN documented in this encounter Plan of [...] 0.9% 50 mL Given 09/19/2021 10:35 AM MACHINE OPERATOR SLITTER TECHNICIAN 50 mg bladder instillation (JUANY BCG) 50 [...] as of this encounter Care Teams Medical Research Tech Relationship Specialty Start Date End Date Shayla Alford D.O. PCP - General Internal Medicine 05/22/[address] [phone] documented as of this encounter
--- OUTSIDE RECORDS SUMMARY | 2022-05-28 06:37 | XMS_ITS | Encounter Summary ---
:1945 Author Organization [facility] Address [address] [place] [address] Care Team Providers Name Role Phone Shayla Alford D.O. Primary Care Provider [phone] Reason for Visit Reason Comments Nurse Visit Bladder Cancer Appointment Request (Routine) - Closed Specialty Diagnoses / Procedures Referred By Contact Refer red To Contact Urology Referral ID Status Reason Start Date Expiration Date Visits Requ ested Visits Authorized [id number] Closed 07/23/2021 07/23/2022 1 1 Encounter Details Date Type Department Care Team Description 09/12/2021 Nurse Only Department of Urology Lea Morin Nu rse Visit; Bladder in Alicia Dixon suman R.N. Cancer [address] [place] [address] [place], [place] [phone] Social History Tobacco Use Types Packs/Day Years [...] do you attend sikhism or Never 2021 roman catholic services? Do [...] completed or the highest Martin, MEd, ADULT REMEDIAL EDUCATION INSTRUCTOR, CAYDEN) degree you have received? Sex Assigned at Date Recorded Male 05/21/2018 2:34 PM CDT documented as of this encounter Last Filed Vital Signs Vital Sign Reading Time Taken Comments Blood Pressure - - Pulse - - Temperature 36.4 ??C (97.6 ??F) 09/12/2021 9:21 AM MECHANIC CHIEF Respiratory Rate - - Oxygen Saturation - [...] the next BCG treatment. Lea Morin R.N. ANIC CHIEF documented in this encounter Plan of Treatment [...] 0.9% 50 mL Given 09/12/2021 9:22 AM MECHANIC CHIEF 5 0 mg bladder instillation (JUANY BCG) [...] documented as of this encounter Care Teams Controls Design Engineer Relationship Specialty Start Date End Date Shayla Alford D.O. PCP - General Internal Medicine 05/22/20 [address] [place] [phone] documented as of this encounter
--- OUTSIDE RECORDS SUMMARY | 2022-05-28 06:37 | XMS_ITS | Encounter Summary ---
:1945 Author Organization [facility] Address [address] [place] [address] Care Team Providers Name Role Phone Shayla Alford D.O. Primary Care Provider [phone] Reason for Referral Outpatient (Routine) - Closed Specialty Diagnoses / Procedures Referred By Contact Refer red To Contact Urology Prasanna Bernal M.D. 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 [facility] [address] [place] [phone] Referral ID Status Reason Start Date Expiration Date Visits Requ ested Visits Authorized [id number] Closed 10/25/2021 10/25/2022 1 1 MAKER GIFT WRAPPING Reason for Visit Reason Comments Cystoscopy Post bcg Outpatient (Routine) - Closed Specialty Diagnoses / Procedures Referred By Contact Refer red To Contact Diagnoses Malignant Neoplasm Of Bladder Lateral Wall (HCC) Prasanna Bernal M.D. [facility] Procedures Cystoscopy (specific provider) [address] [place] [phone] Referral ID Status Reason Start Date Expiration Date Visits Requ ested Visits Authorized [id number] Closed 07/23/2021 07/23/2022 1 1 Encounter Details Date Type Department Care Team Description 10/25/2021 Office Visit Department of Urology Prasanna Bernal Mal ignant Neoplasm Of in Moise Dixon M.D. Bladder Posterior Wall [address] (HCC) [place] [phone] Social History Tobacco Use Types Packs/Day Years [...] do you attend pentecostal or Never 2021 mormonism services? Do you [...] completed or the highest Martin, MEd, WOOD GRINDER, CAYDEN) degree you have received? Sex Assigned at Date Recorded Male 05/21/2018 2:34 PM CDT documented as of this encounter Last Filed Vital Signs Vital Sign Reading Time Taken Comments Blood Pressure - - Pulse 53 10/25/2021 2:34 PM BOW MAKER GIFT WRAPPING Temperature 35.9 ??C (96.6 ??F) 10/25/2021 2:34 PM BOW MAKER GIFT WRAPPING Respiratory Rate - - Oxygen Saturation 98% 10/25/2021 2:34 PM BOW MAKER GIFT WRAPPING Inhaled Oxygen Concentration - - Weight - [...] by: Prasanna Bernal M.D. 10/25/21 4:02 PM BOW MAKER GIFT WRAPPING Answers for HPI/ROS submitted by the patient on 10/09/2021 No general issues: Yes No eye issues: Yes No ENT issues: Yes No heart issues: Yes No respiratory issues: Yes Diarrhea: Yes No muscle/bone issues: Yes No skin issues: Yes Loss of balance or tendency to fall easily: Yes No mental health issues: Yes Bruises/bleeds easily: Yes Frequent urination: Yes Incontinence (urine leakage): Yes MAKER GIFT WRAPPING documented in this encounter Plan of Treatment Scheduled Referrals Name Type Priority Associated Diagnoses Order S [facility] Outpatient Referral Routine Malignant Neopl asm Expected: consult (clinic) Of Bladder Posterior Wall (HCC) (Approximate), Expires: 01/23/2023 Urology office Outpatient Referral Routine Expect ed: visit (clinic) 11/19/2021 (Approximate), Expires: 01/23/2023 documented as of this encounter Results SARS Coronavirus-2 RNA, V Asymptomatic (11/11/2021 8:06 AM BOW MAKER GIFT WRAPPING) [facility] Method Time Signature SARS-CoV-2 Swab, 11/11/2021 MKTO Specimen Nasopharynx 11:29 PM Source BOW MAKER GIFT WRAPPING SARS CoV-2 Undetected Undetected 11/11/2021 MKTO RNA, TMA 11:29 PM BOW MAKER GIFT WRAPPING Comment: SARS-CoV-2 RNA absent. This result does not rule out COVID-19 in the patient, as the sensitivity of the test depends o n the timing of the specimen collection and the quality of the specim en. Result should be correlated with patient's history and clinical presentat ion. ----ADDITIONAL INFORMATION---- This molecular amplification test was pe rformed using the Aptima SARS-CoV-2 assay ([employer] on the QuickSolars tem under emergency use authorization (EUA) by the U.S. Food and Drug Administ ration. Fact sheets for this EUA assay can be fo und at the following links: For Healthcare Providers: https://www.[employer] a.gov/media/806232/download For Patients: https://www.fda.gov/media/ 185676/download Specimen Anatomical Collection Method Collection Time Receive d Time (Source) Location / / Volume Laterality Varies 11/11/2021 8:06 AM 2 4:32 (Nasopharynx) BOW MAKER GIFT WRAPPING PM BOW MAKER GIFT WRAPPING Prasanna Bernal M.D. LAB MICROBIOLOGY - GENERAL Jason PORTER Performing Organization Address City/[facility] Phon e Number [address] [address] [place] [address] [address] (ABNORMAL) Bacterial Culture, Aerobic + Susc, Urine (11/07/2021 8:30 AM BOW MAKER GIFT WRAPPING) Analysis Performed At [facility] Time Signature Urine Culture Mixed 11/08/2021 [facility] surekha. (A) 10:55 AM BOW MAKER GIFT WRAPPING Specimen Anatomical Collection Method Collection Time Receive d Time (Source) Location / / Volume Laterality Urine (Urine, 11/07/2021 8:30 AM 11/07/19 22 2:14 Midstream) BOW MAKER GIFT WRAPPING PM BOW MAKER GIFT WRAPPING Comment: Specimen Source Site: Urine Mid stream Prasanna Bernal M.D. 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 PCP - General Internal Medicine 05/22/[address] [place] [phone] documented as of this encounter
--- OUTSIDE RECORDS SUMMARY | 2022-05-28 06:37 | XMS_ITS | Encounter Summary ---
:1945 Author Organization [facility] Address [address] [place] [address] Care Team Providers Name Role Phone Shayla Alford D.O. Primary Care Provider [phone] Reason for Visit Reason Comments URO SURGERY ON 11-14 Encounter Details Date Type Department Care Team Description 10/25/2021 Clinical Communication Department of Alexys URO SURGERY ON 11-14 Internal Medicine Shayla queen in [place], D.O. [place] [address] [place] [phone] Social History Tobacco Use Types Packs/Day [...] do you attend faith or Never 2021 mormonism services? Do you [...] have completed or the highest Martin, MEd, [employer], CAYDEN) degree you have received? Sex Assigned at Date Recorded Male 05/21/2018 2:34 PM CDT documented as of this encounter Miscellaneous Notes Telephone Encounter - Jimena Copeland RMauroNMauro - 10/25/2021 3:53 PM CST Noted in desk calendar. CTOR OF RECRUITING Telephone Encounter - Justina Wilkins - 10/25/2021 3:46 PM CST SURGEON: DR. STACY ASSIST: NONE PRE-OP DATE: 11-14-[address] MCCARTY NASAL SWAB: 11-11-21 SURGERY DATE: 11-14-21 DIAGNOSIS: BLADDER TUMOR/ CANCER PROCEDURE: 1. TRANSURTHERAL RESECTION OF BLADDER TUMOR 2. RANDOM BLADDER BIOPSIES 3. ANESTHESIA: [facility] WILL CALL WITH ARRIVAL TIME. CTOR OF RECRUITING documented in this encounter Plan of Treatment Not on filedocumented as of this encounter Visit Diagnoses Not on filedocumented in this encounter Additional Health Concerns Assessment Noted Time PHQ-9 Depression Total Score: 18 04/28/2018 11:27 AM C DT documented as of this encounter Care Teams Pump Attendant Relationship Specialty Start Date End Date Shayla Alford D.O. PCP - General Internal Medicine 05/22/[address] [phone] documented as of this encounter
--- OUTSIDE RECORDS SUMMARY | 2022-05-28 06:37 | XMS_ITS | Encounter Summary ---
:1945 Author Organization [facility] Address [address] [place] [address] Care Team Providers Name Role Phone Shayla Alford D.Sabrina Primary Care Provider [phone] Reason for Referral Outpatient (Routine) - Closed Specialty Diagnoses / Procedures Referred By Contact Refer red To Contact Diagnoses Cyst Breast Left Shayla Alford [facility] [place] [facility] Procedures BI Ultrasound Breast Axilla Left D.O. [address], [place] [address] Referral ID Status Reason Start Date Expiration Date Visits Requ ested Visits Authorized [id number] Closed 09/13/2021 09/13/2022 1 1 ARIAL TECHNICIAN Reason for Visit Outpatient (Routine) - Closed Specialty Diagnoses / Procedures Referred By Contact Refer red To Contact Diagnoses Cyst Breast Left Shayla Alford [facility] [place] [facility] Procedures BI Ultrasound Breast Axilla Left D.O. [address], [place] [address] Referral ID Status Reason Start Date Expiration Date Visits Requ ested Visits Authorized [id number] Closed 09/13/2021 09/13/2022 1 1 Encounter Details Date Type Department Care Team Description 10/09/2021 Hospital Encounter Department of Bakkali-Derksen, Cyst Breast Left Radiology in [place] [address] [place], [place] [phone] Social History Tobacco Use Types Packs/Day [...] do you attend quaker or Never 2021 voodoo services? Do you [...] have completed or the highest Martin, MEd, HR ANALYST, CAYDEN) degree you have received? Sex [...] a day. Use to [facility] scan Sofya sensor 5 [...] this BREAST AXILLA LEFT (most inpatients AM ACTUARIAL TECHNICIAN proce dure are in and all the results outpatients) section. documented in this encounter Results BI Ultrasound Breast Axilla Left (10/09/2021 10:54 AM ACTUARIAL TECHNICIAN) Anatomical Region Laterality Modality Breast, Breast Imaging RST LOS, Breast Imaging FLA LOS Left Ultrasound Specimen (Source) Anatomical Collection Method Collection Time Re ceived Time Location / / Volume Laterality 10/09/2021 10:38 AM ACTUARIAL TECHNICIAN Impressions 10/09/2021 10:41 AM ACTUARIAL TECHNICIAN 1. ??Left gynecomastia corresponds with lump. 2. ??No mammographic or sonographic find ings of malignancy. RECOMMENDATION: ??Individualized Recomme ndation Recommend management be based on clinica l grounds. ASSESSMENT: ??BI-RADS: 2: Benign. Narrative 10/09/2021 10:41 AM ACTUARIAL TECHNICIAN EXAM: ??BI BREAST DIAGNOSTIC BILATERAL WITH TOMOSYNTHESIS, [...] documented as of this encounter Care Teams Mine Car Repairer Relationship Specialty Start Date End Date Shayla Alford D.O. PCP - General Internal Medicine 05/22/[address] [phone] documented as of this encounter
--- OUTSIDE RECORDS SUMMARY | 2022-05-28 06:37 | XMS_ITS | Encounter Summary ---
:1945 Author Organization [facility] Address [address] [place] [address] Care Team Providers Name Role Phone Shayla Alford D.O. Primary Care Provider [phone] Encounter Details Date Type Department Care Team [...] do you attend amish or Never 2021 yarsani services? Do you [...] for the very basics like Not h nleda at all 10/09/2021 food, housing, medical care, [...] have completed or the highest Martin, MEd, WRAPPER LAYER AND EXAMINER SOFT WORK, CAYDEN) degree you have received? Sex Assigned at Date Recorded Male 05/21/2018 2:34 PM CDT documented as of this encounter Plan of Treatment Not on filedocumented as of this encounter Procedures Procedure Name Priority Date/Time Associated Diagnosis Comme nts UROLOGY IMAGE EXAM Routine 10/25/2021 3:05 PM Res ults for this TRACK LAYING MACHINE OPERATOR procedure are i n the results section. documented in this encounter Results BLADDER-Urology Image Exam (10/25/2021 3:05 PM TRACK LAYING MACHINE OPERATOR) Specimen (Source) Anatomical Collection Method Collection Time Re ceived Time Location / / Volume Laterality 10/25/2021 3:03 PM TRACK LAYING MACHINE OPERATOR Narrative [facility] - 10/25/2021 3:08 PM TRACK LAYING MACHINE OPERATOR This order has been created and [...] documented as of this encounter Care Teams Handle Bender Relationship Specialty Start Date End Date Shayla Alford D.O. PCP - General Internal Medicine 05/22/20 [address], [place] [phone] documented as of this encounter
--- OUTSIDE RECORDS SUMMARY | 2022-05-28 06:37 | XMS_ITS | Encounter Summary ---
:1945 Author Organization [facility] Address [address] [place] [address] Care Team Providers Name Role Phone Shayla Alford D.O. 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 Sex Assigned [...] (FREESTYLE SOFYA) times a day. Use to [facility] scan Sofya sensor 5 times daily and [...] PEN NEEDLE, DIABETIC Yani Fine 30 0 [facility] disposable needles. For use with Insulin Pens, 4 times daily SYRINGE-NEEDLE,INSULIN,0 0 .5 ML (INSULIN SYRINGE [facility]) torsemide (DEMADEX) 20 Take 1 tablet (20 [...] Shayla Alford D.O. - 11/07/2021 11:24 AM OVERNIGHT CASHIER Please, call patient following information. Good news, [...] by: Shayla Alford D.O. 11/07/21 11:23 AM OVERNIGHT CASHIER NIGHT CASHIER documented in this encounter Plan of Treatment Not on filedocumented as of this encounter Procedures Procedure Name Priority Date/Time Associated Diagnosis Comme nts CBC WITH Routine 11/07/2021 8:32 AM Preoperative Exam Resu lts for this DIFFERENTIAL, B OVERNIGHT CASHIER procedure ar e in the results section. HEMOGLOBIN A1C, B Routine 11/07/2021 8:32 AM Diabetes Mellitus Results for this OVERNIGHT CASHIER Type 2 With Diabetic procedu re are in Chronic Kidney the results Disease (HCC) section. BASIC METABOLIC Routine 11/07/2021 8:32 AM Preoperative Exam R esults for this PANEL, S/P OVERNIGHT CASHIER procedure are i n the results section. documented in this encounter Results (ABNORMAL) CBC with Differential, Blood (11/07/2021 8:32 AM OVERNIGHT CASHIER) [facility] Method Time Signature Hemoglobin 11.8 (L) 13.2 - 11/07/2021 [place] 16.6 g/dL 8:39 AM OVERNIGHT CASHIER Hematocrit 34.6 (L) 38.3 - 11/07/2021 [place] 48.6 % 8:39 AM OVERNIGHT CASHIER Erythrocytes 3.86 (L) 4.35 - 11/07/2021 [place] 5.65 8:39 AM OVERNIGHT CASHIER x10(12)/L MCV 89.6 78.2 - 11/07/2021 [place] 97.9 fL 8:39 AM OVERNIGHT CASHIER RBC Distrib Width 13.8 11.8 - 11/07/2021 [place] 14.5 % 8:39 AM OVERNIGHT CASHIER Platelet Count 187 135 - 317 11/07/2021 [place] x10(9)/L 8:39 AM OVERNIGHT CASHIER Leukocytes 6.5 3.4 - 9.6 11/07/2021 [place] x10(9)/L 8:39 AM OVERNIGHT CASHIER Neutrophils 4.26 1.56 - 11/07/2021 [place] 6.45 8:39 AM OVERNIGHT CASHIER x10(9)/L Lymphocytes 1.11 0.95 - 11/07/2021 [place] 3.07 8:39 AM OVERNIGHT CASHIER x10(9)/L Monocytes 0.53 0.26 - 11/07/2021 [place] 0.81 8:39 AM OVERNIGHT CASHIER x10(9)/L Eosinophils 0.53 (H) 0.03 - 11/07/2021 [place] 0.48 8:39 AM OVERNIGHT CASHIER x10(9)/L Basophils 0.10 (H) 0.01 - 11/07/2021 [place] 0.08 8:39 AM OVERNIGHT CASHIER x10(9)/L Specimen Anatomical Collection Method Collection Time Receive d Time (Source) Location / / Volume Laterality Blood (Blood, 11/07/2021 8:32 AM 11/07/19 8:39 Venous) OVERNIGHT CASHIER AM OVERNIGHT CASHIER Shayla Alford D.O. LAB BLOOD ADD-ON Performing Organization Address City/State/ZIP Code Phon e Number [facility] [address] [place] [address] [place] [address] System in [place] [address] [facility] (ABNORMAL) Basic Metabolic Panel (11/07/2021 8:32 AM OVERNIGHT CASHIER) Analysis Performed At Patho logist Time Signature Potassium, P 4.0 3.6 - 5.2 11/07/2021 [place] mmol/L 9:12 AM OVERNIGHT CASHIER Sodium, P 138 135 - 145 11/07/2021 [place] mmol/L 9:12 AM OVERNIGHT CASHIER Chloride, P 107 98 - 107 11/07/2021 [place] mmol/L 9:12 AM OVERNIGHT CASHIER Bicarbonate, P 21 (L) 22 - 29 11/07/2021 [place] mmol/L 9:12 AM OVERNIGHT CASHIER Anion Gap, P 10 7 - 15 11/07/2021 [place] 9:12 AM OVERNIGHT CASHIER BUN (Blood Urea 28 (H) 8 - 24 11/07/2021 [place] Nitrogen), P mg/dL 9:12 AM OVERNIGHT CASHIER Creatinine 1.46 (H) 0.74 - 11/07/2021 [place] 1.35 mg/dL 9:12 AM OVERNIGHT CASHIER eGFR-Black/Afri 53 (L) >=60 11/07/2021 [place] can Mong[place]ian mL/min/BSA 9:12 AM OVERNIGHT CASHIER Comment: ----ADDITIONAL INFORMATION---- Estimated GFR calculated using the 2009 CKD_EPI creatinine equation. eGFR Non-Black/ 45 (L) >=60 mL/min/BSA 11/07/2021 9:12 AM OVERNIGHT CASHIER [place] Comment: ----ADDITIONAL INFORMATION---- Estimated GFR calculated using the 2009 CKD_EPI creatinine equation. Calcium, Total, P 8.8 8.8 - 10.2 mg/dL 11/07/2021 9:12 AM OVERNIGHT CASHIER [place] Glucose, P 157 (H) 70 - 140 mg/dL 11/07/2021 9:12 AM OVERNIGHT CASHIER O MARCK Specimen Anatomical Collection Method Collection Time Receive d Time (Source) Location / / Volume Laterality Blood (Blood, 11/07/2021 8:32 AM 11/07/19 8:46 Venous) OVERNIGHT CASHIER AM OVERNIGHT CASHIER Shayla Alford D.O. LAB BLOOD ADD-ON Performing Organization Address City/State/ZIP Code Phon e Number [facility]- [address] [place] [facility] [place] [address] [place] [address] System in [place] [address] (ABNORMAL) Hemoglobin A1c (11/07/2021 8:32 AM OVERNIGHT CASHIER) P athologist Signature Hemoglobin A1c, 9.5 (H) 4.2 - 5.6 11/07/2021 [place] B % 8:51 AM OVERNIGHT CASHIER Comment: Hemoglobin A1c values greater than or eq ual to 6.5 percent are diagnostic for diabetes mellitus. ?? Diagnosis should be confirmed by repeat testing. ??In diabet ic patients, HbA1c goals should be discussed with healthcar e provider. Specimen Anatomical Collection Method Collection Time Receive d Time (Source) Location / / Volume Laterality Blood (Blood, 11/07/2021 8:32 AM 11/07/19 8:51 Venous) OVERNIGHT CASHIER AM OVERNIGHT CASHIER Shayla Alford D.O. LAB BLOOD ADD-ON Performing Organization Address City/State/ZIP Code Phon e Number [facility] [address] [place] [address] [place] [address] System in [place] [address] documented in this encounter Visit Diagnoses Diagnosis Diabetes Mellitus Type 2 With Diabetic C hronic Kidney Disease (HCC) Preoperative Exam documented in this encounter Additional Health Concerns Assessment Noted Time PHQ-9 Depression Total Score: 18 04/28/2018 11:27 AM C DT documented as of this encounter Care Teams Cross Tie Cutter Relationship Specialty Start Date End Date Shayla Alford D.O. PCP - General Internal Medicine 05/22/[address] [phone] documented as of this encounter
--- OUTSIDE RECORDS SUMMARY | 2022-05-28 06:37 | XMS_ITS | Encounter Summary ---
:1945 Author Organization [facility] Address [address] [place] [address] Care Team Providers Name Role Phone Shayla Alford D.O. Primary Care Provider [phone] Reason for Visit Appointment Request (Routine) - Closed Specialty Diagnoses / Procedures Referred By Contact Refer red To Contact Urology Referral ID Status Reason Start Date Expiration Date Visits Requ ested Visits Authorized [id number] Closed 07/23/2021 07/23/2022 1 1 Encounter Details Date Type Department Care Team Description 09/05/2021 Nurse Only Department of Urology in [facility] [place] [address] [place] [phone] Social History Tobacco Use Types Packs/Day Years [...] do you attend christian or Never 2021 sabianist services? Do you [...] completed or the highest Martin, MEd, WORKFORCE CONSULTANT, CAYDEN) degree you have received? Sex Assigned at Date Recorded Male 05/21/2018 2:34 PM CDT documented as of this encounter Last Filed Vital Signs Vital Sign Reading Time Taken Comments Blood Pressure - - Pulse - - Temperature 36.6 ??C (97.8 ??F) 09/05/2021 9:53 AM ADMISSIONS CONSULTANT Respiratory Rate 18 09/05/2021 9:53 AM ADMISSIONS CONSULTANT Oxygen Saturation - - Inhaled Oxygen [...] the next BCG treatment. Lea Morin R.N. SSIONS CONSULTANT documented in this encounter Plan of [...] 0.9% 50 mL Given 09/05/2021 9:57 AM ADMISSIONS CONSULTANT 5 0 mg bladder instillation (JUANY BCG) [...] as of this encounter Care Teams Film Or Tape Librarian Relationship Specialty Start Date End Date Shayla Alford D.O. PCP - General Internal Medicine 05/22/20 [address] [place] [phone] documented as of this encounter
--- OUTSIDE RECORDS SUMMARY | 2022-05-28 06:37 | XMS_ITS | Encounter Summary ---
:[address] [facility] Address [address] [place] [address] Care Team Providers Name Role Phone Shayla Alford D.O. Primary Care Provider Reason for Referral Outpatient (Routine) - Authorized Specialty Diagnoses / Procedures Referred By Contact Refer red To Contact Pharmacy Diagnoses Diabetes Mellitus Type 2 With Diabetic Chronic Kidney Disease (HCC) Shayla Salazar [facility] Region D.O. [address] [place] [phone] Referral ID Status Reason Start Date Expiration Date Visits V isits Requested Authorized [id number] Authorized 11/06/2021 11/06/2022 1 1 CIPAL SECURITY ARCHITECT Outpatient (Routine) - Closed Specialty Diagnoses / Procedures Referred By Contact Refer red To Contact Diagnoses Preoperative Exam Shayla Alford [facility] Region Procedures ECG 12 Lead D.O. [address] [place] [phone] Referral ID Status Reason Start Date Expiration Date Visits Requ ested Visits Authorized [id number] Closed 11/06/2021 11/06/2022 1 1 CIPAL SECURITY ARCHITECT Reason for Visit Reason Comments Pre-op Exam 11/14 Dr. 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 [facility] Region [address] [place] [phone] Referral ID Status Reason Start Date Expiration Date Visits Requ ested Visits Authorized [id number] Closed 10/25/2021 10/25/2022 1 1 Encounter Details Date Type Department Care Team Description 11/06/2021 Office Visit Department of [facility] (Congestive) Heart Failure (HCC) (Primary Dx); Internal Medicine in Shayla D. O. 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 Sex Assigned at Date Recorded Male 05/21/2018 2:34 PM CDT documented as of this encounter H&P Notes Shayla Alford D.O. - 11/06/2021 9:30 AM CST INTERNAL MEDICINE PREOPERATIVE EXAM: DATE OF SERVICE 11/06/2021 LOCATION OF SERVICE [facility] CHIEF COMPLAINT/REASON FOR VISIT Preoperative exam Chief [...] 11/17/2020 showed an EF of 50%, with iuxg-hm-oxdvegvq mitral valve regurgitation. His blood pressure has [...] was 8. The [facility] where [facility] has a dietitian as well as an liaison engineer. Due to worsening kidney function, his metformin [...] discussed this with his provider at the [facility]. He would like a prescription sent in to the [facility] today. We discussed importance of titration of the medication, and ensuring he does not have any hypoglycemia since he is also oninsulin. He [facility] me [facility] and that he will be keeping a close eye on his blood glucose level. We are happy to see him for diabetic management here as well in [place]. 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 Prasanna Bernal at the [facility]. ??? TONSILLECTOMY ??? TONSILLECTOMY 1969 ??? [...] Master's degree (e.g., MA, MS, Martin, MEd, RECORDING ARTIST, CAYDEN) Occupational History Employer: RETIRED Tobacco Use [...] and Family: Once a week ??? Attends Episcopal Services: Never ??? 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 Echocardiogram 11/17/2020 showed an EF of 50%, with qoca-lp-cmyzdimh mitral valve regurgitation. His blood pressure has [...] was 8. The patient follows with [facility] where he has a dietitian as well as an liaison engineer. Due to worsening kidney function, his metformin [...] discussed this with his provider at the [facility]. He would like a prescription sent in to the [facility] today. We discussed importance of titration of the medication, and ensuring he does not have any hypoglycemia since he is also oninsulin. He assured me that [facility] and that he will be keeping a close eye on his blood glucose level. We are happy to see him for diabetic management here as well in [place]. 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 11/06/21 9:49 AM PRINCIPAL SECURITY ARCHITECT Time spent 58 minutes CIPAL SECURITY ARCHITECT documented in this encounter Plan of Treatment Scheduled Referrals Name Type Priority Associated Order Schedule Diagnoses Pharmacy - Outpatient Referral Routine Diabetes Mellitus Exp ected: Medication therapy Type 2 With 2 management consult Diabetic Chronic (Appr oximate), (clinic) Kidney Disease Expires: (HCC) 02/03/2023 documented as of this encounter Results ECG 12 Lead (11/07/2021 8:40 AM PRINCIPAL SECURITY ARCHITECT) P athologist Signature Ventricular Rate 47 BPM MUSE ECG/Min IA Interval 230 ms MUSE QRSD Interval 112 ms MUSE QT Interval 498 ms MUSE QTC Interval 440 ms MUSE P [place] 87 degrees MUSE R [place] -35 degrees MUSE T Wave [place] 6 degrees MUSE Specimen Anatomical Collection Method Collection Time Receive d Time (Source) Location / / Volume Laterality 11/07/2021 8:40 AM 2 9:10 PRINCIPAL SECURITY ARCHITECT AM PRINCIPAL SECURITY ARCHITECT Impressions MUSE - 11/07/2021 9:10 AM PRINCIPAL SECURITY ARCHITECT Marked sinus bradycardia with 1st degree A-V [...] CBC with Differential, Blood (11/07/2021 8:32 AM PRINCIPAL SECURITY ARCHITECT) Patholo gist Method Time Signature Hemoglobin 11.8 (L) 13.2 - 11/07/2021 OWAT 16.6 g/dL 8:39 AM PRINCIPAL SECURITY ARCHITECT Hematocrit 34.6 (L) 38.3 - 11/07/2021 OW[place] 48.6 % 8:39 AM PRINCIPAL SECURITY ARCHITECT Erythrocytes 3.86 (L) 4.35 - 11/07/2021 OWAT 5.65 8:39 AM PRINCIPAL SECURITY ARCHITECT x10(12)/L MCV 89.6 78.2 - 11/07/2021 OW[place] 97.9 fL 8:39 AM PRINCIPAL SECURITY ARCHITECT RBC Distrib Width 13.8 11.8 - 11/07/2021 OWAT 14.5 % 8:39 AM PRINCIPAL SECURITY ARCHITECT Platelet Count 187 135 - 317 11/07/2021 OW[place] x10(9)/L 8:39 AM PRINCIPAL SECURITY ARCHITECT Leukocytes 6.5 3.4 - 9.6 11/07/2021 OWAT x10(9)/L 8:39 AM PRINCIPAL SECURITY ARCHITECT Neutrophils 4.26 1.56 - 11/07/2021 OWAT 6.45 8:39 AM PRINCIPAL SECURITY ARCHITECT x10(9)/L Lymphocytes 1.11 0.95 - 11/07/2021 OWAT 3.07 8:39 AM PRINCIPAL SECURITY ARCHITECT x10(9)/L Monocytes 0.53 0.26 - 11/07/2021 OWAT 0.81 8:39 AM PRINCIPAL SECURITY ARCHITECT x10(9)/L Eosinophils 0.53 (H) 0.03 - 11/07/2021 OWAT 0.48 8:39 AM PRINCIPAL SECURITY ARCHITECT x10(9)/L Basophils 0.10 (H) 0.01 - 11/07/2021 OWAT 0.08 8:39 AM PRINCIPAL SECURITY ARCHITECT x10(9)/L Specimen Anatomical Collection Method Collection Time Receive d Time (Source) Location / / Volume Laterality Blood (Blood, 11/07/2021 8:32 AM 11/07/19 22 8:39 Venous) PRINCIPAL SECURITY ARCHITECT AM PRINCIPAL SECURITY ARCHITECT Shayla Alford D.O. LAB BLOOD ADD-ON Performing Organization Address City/State/ZIP Code Phon e Number [facility]- [address] [place] [address] [facility] [place] [address] System in [place] [address] (ABNORMAL) Basic Metabolic Panel (11/07/2021 8:32 AM PRINCIPAL SECURITY ARCHITECT) Analysis Performed At Patho logist Time Signature Potassium, P 4.0 3.6 - 5.2 11/07/2021 OW[place] mmol/L 9:12 AM PRINCIPAL SECURITY ARCHITECT Sodium, P 138 135 - 145 11/07/2021 OW[place] mmol/L 9:12 AM PRINCIPAL SECURITY ARCHITECT Chloride, P 107 98 - 107 11/07/2021 OW[place] mmol/L 9:12 AM PRINCIPAL SECURITY ARCHITECT Bicarbonate, P 21 (L) 22 - 29 11/07/2021 OWAT mmol/L 9:12 AM PRINCIPAL SECURITY ARCHITECT Anion Gap, P 10 7 - 15 11/07/2021 OWAT 9:12 AM PRINCIPAL SECURITY ARCHITECT BUN (Blood Urea 28 (H) 8 - 24 11/07/2021 OWAT Nitrogen), P mg/dL 9:12 AM PRINCIPAL SECURITY ARCHITECT Creatinine 1.46 (H) 0.74 - 11/07/2021 OWAT 1.35 mg/dL 9:12 AM PRINCIPAL SECURITY ARCHITECT eGFR-Black/Afri 53 (L) >=60 11/07/2021 OW[place] can [place] mL/min/BSA 9:12 AM PRINCIPAL SECURITY ARCHITECT Comment: ----ADDITIONAL INFORMATION---- Estimated GFR calculated using the 2009 CKD_EPI creatinine equation. eGFR Non-Black/ 45 (L) >=60 mL/min/BSA 11/07/2021 9:12 AM PRINCIPAL SECURITY ARCHITECT OW[place] Comment: ----ADDITIONAL INFORMATION---- Estimated GFR calculated using the 2009 CKD_EPI creatinine equation. Calcium, Total, P 8.8 8.8 - 10.2 mg/dL 11/07/2021 9:12 AM PRINCIPAL SECURITY ARCHITECT OW[place] Glucose, P 157 (H) 70 - 140 mg/dL 11/07/2021 9:12 AM PRINCIPAL SECURITY ARCHITECT O MARCK Specimen Anatomical Collection Method Collection Time Receive d Time (Source) Location / / Volume Laterality Blood (Blood, 11/07/2021 8:32 AM 11/07/19 22 8:46 Venous) PRINCIPAL SECURITY ARCHITECT AM PRINCIPAL SECURITY ARCHITECT Shayla Alford D.O. LAB BLOOD ADD-ON Performing Organization Address City/State/ZIP Code Phon e Number [facility]- [address] [place] [address] [place] [address] System in [place] [address] (ABNORMAL) Hemoglobin A1c (11/07/2021 8:32 AM PRINCIPAL SECURITY ARCHITECT) P athologist Signature Hemoglobin A1c, 9.5 (H) 4.2 - 5.6 11/07/2021 OW[place] B % 8:51 AM PRINCIPAL SECURITY ARCHITECT Comment: Hemoglobin A1c values greater than or eq ual to 6.5 percent are diagnostic for diabetes mellitus. ?? Diagnosis should be confirmed by repeat testing. ??In diabet ic patients, HbA1c goals should be discussed with healthcar e provider. Specimen Anatomical Collection Method Collection Time Receive d Time (Source) Location / / Volume Laterality Blood (Blood, 11/07/2021 8:32 AM 11/07/19 8:51 Venous) PRINCIPAL SECURITY ARCHITECT AM PRINCIPAL SECURITY ARCHITECT Shayla Alford D.O. 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 PCP - General Internal Medicine 05/22/[address]199 [place] [phone] documented as of this encounter
--- OUTSIDE RECORDS SUMMARY | 2022-05-28 06:37 | XMS_ITS | Encounter Summary ---
:1945 Author Organization [facility] Address [address] [place] [address] Care Team Providers Name Role Phone Shayla Alford D.O. Primary Care Provider [phone] Reason for Referral Outpatient (Routine) - Authorized Specialty Diagnoses / Procedures Referred By Contact Refer red To Contact Nephrology and Melissa Ferrer [place] [facility] 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 [address] [place] [address] Referral ID Status Reason Start Date Expiration Date Visits Requ ested Visits Authorized [id number] Closed 05/16/2021 05/16/2022 1 1 Encounter Details Date Type Department Care Team Description 10/09/2021 Office Visit Division of Nephrology Nabil, Chron ic Kidney Disease (CKD), Stage 3b Glomerular Filtration Rate (GFR) 30 To 44 (HCC) (Primary Dx); and Hypertension in Melissa, Hyperten nubia Essential Primary [place], [place] M.B.B.S. [address] [facility] [address] [place] [address] [phone] Social History Tobacco Use Types Packs/Day Years [...] do you attend nondenominational or Never 2021 voodoo services? Do you [...] completed or the highest Martin, MEd, PATTERN CHANGER, CAYDEN) degree you have received? Sex Assigned at Date Recorded Male 05/21/2018 2:34 PM CDT documented as of this encounter Last Filed Vital Signs Vital Sign Reading Time Taken Comments Blood Pressure 128/64 10/09/2021 4:15 PM CIVIL PROJECT ENGINEER Pulse 57 10/09/2021 4:15 PM CIVIL PROJECT ENGINEER Temperature 37.3 ??C (99.1 ??F) 10/09/2021 3:28 PM CIVIL PROJECT ENGINEER Respiratory Rate - - Oxygen Saturation - - Inhaled Oxygen Concentration - - Weight 97.3 kg (214 lb 8.1 oz) 10/09/2021 3:28 PM CIVIL PROJECT ENGINEER Height 184.9 cm (6' 0.8) 10/09/2021 3:28 PM CIVIL PROJECT ENGINEER Body Mass Index 28.46 10/09/2021 3:28 PM CIVIL PROJECT ENGINEER documented in this encounter Progress Notes Melissa [...] with me in 4 months Jose MoranB.S. L PROJECT ENGINEER documented in this encounter Plan of [...] as of this encounter Care Teams Animal Laboratory Technician Relationship Specialty Start Date End Date Shayla Alford D.O. PCP - General Internal Medicine 05/22/[address] [place] [phone] documented as of this encounter
--- OUTSIDE RECORDS SUMMARY | 2022-05-28 06:37 | XMS_ITS | Encounter Summary ---
:1945 Author Organization [facility] Address [address] [place] [address] Care Team Providers Name Role Phone Shayla Alford D.O. Primary Care Provider [phone] Encounter Details Date Type Department Care Team Description 09/10/2021 Hospital Encounter Department of Cirilo Bernal Neoplasm Of Laboratory Medicine Pato Mims Bladder Lateral Wall in [place], [address] ([facility]) [address] [place] [phone] Social History Tobacco Use Types Packs/Day [...] do you attend religion or Never 2021 worship services? Do you [...] have completed or the highest Martin, MEd, LAB REP, CAYDEN) degree you have received? Sex Assigned [...] (FREESTYLE SOFYA) times a day. Use to [facility] scan Sofya sensor 5 [...] (INSULIN SYRINGE [facility]) traZODone (DESYREL) 100 Take 0.5 tablets (50 [...] Results for this AEROBIC + SUSC, URINE MEDICAL DEVICE SALES CONSULTANT Of Bladder Lateral procedure are in Wall ([facility]) the results section. URINALYSIS WITH Routine 09/10/2021 8:27 AM Malignant Neoplasm Results for this MICROSCOPIC MEDICAL DEVICE SALES CONSULTANT Of Bladder Lateral procedure are in Wall ([facility]) the results section. documented in this encounter Results (ABNORMAL) Bacterial Culture, Aerobic + Susc, Urine (09/10/2021 8:27 AM MEDICAL DEVICE SALES CONSULTANT) Analysis Performed At Patho logist Time Signature Urine Culture Mixed 09/11/2021 MK[place] surekha. (A) 1:04 PM MEDICAL DEVICE SALES CONSULTANT Specimen Anatomical Collection Method Collection Time Receive d Time (Source) Location / / Volume Laterality Urine (Urine, 09/10/2021 8:27 AM 09/10/20 21 3:35 Midstream) MEDICAL DEVICE SALES CONSULTANT PM MEDICAL DEVICE SALES CONSULTANT Comment: Specimen Source Site: Urine Mid stream Prasanna Bernal M.D. LAB MICROBIOLOGY - GENERAL O RDERABLES Performing Organization Address City/State/ZIP Code Phon e Number [facility]- [address] [place] [address] [place] [address] System in [place] [address] [facility] (ABNORMAL) Urinalysis with Microscopic: Urine, Midstream (09/10/2021 8:27 AM MEDICAL DEVICE SALES CONSULTANT) Analysis Performed At [facility] Time Signature Source Urine, Urine, 09/10/2021 FB60 Midstream 8:44 AM MEDICAL DEVICE SALES CONSULTANT Clarity Clear Clear 09/10/2021 FB60 8:58 AM MEDICAL DEVICE SALES CONSULTANT Color Yellow 09/10/2021 FB60 8:58 AM MEDICAL DEVICE SALES CONSULTANT Comment: ----REFERENCE VALUE---- Colorless Yellow [place] Blood Small (A) Negative 09/10/2021 8:58 AM MEDICAL DEVICE SALES CONSULTANT FB60 Nitrite Negative Negative 09/10/2021 8:58 AM MEDICAL DEVICE SALES CONSULTANT FB60 Leukocyte Esterase Trace (A) Negative 09/10/2021 8:58 AM CS T FB60 Protein Negative mg/dL 09/10/2021 8:58 AM MEDICAL DEVICE SALES CONSULTANT FB60 Comment: ----REFERENCE VALUE---- Negative Trace Glucose >=1000 (A) Negative mg/dL 09/10/2021 8:58 AM MEDICAL DEVICE SALES CONSULTANT F B60 Ketones, QI(U) Negative Negative mg/dL 09/10/2021 8:[address] FB60 Bilirubin Negative Negative 09/10/2021 8:58 AM MEDICAL DEVICE SALES CONSULTANT FB60 pH 5.5 5.0 - 8.0 09/10/2021 8:58 AM MEDICAL DEVICE SALES CONSULTANT FB60 Specific [place] 1.015 1.001 - 1.035 09/10/2021 8:58 AM MEDICAL DEVICE SALES CONSULTANT FB60 Urobilinogen 0.2 0.2 - 1.0 mg/dL 09/10/2021 8:58 AM CS T FB60 White Blood Cells 4-10 (A) /hpf 09/10/2021 9:00 AM MEDICAL DEVICE SALES CONSULTANT FB60 Comment: ----REFERENCE VALUE---- Males: 0-3 Females: 0-10 Unknown: 0-10 Red Blood Cells None Seen 0 - 2 /hpf 09/10/2021 9:00 AM MEDICAL DEVICE SALES CONSULTANT FB60 Specimen Anatomical Collection Method Collection Time Receive d Time (Source) Location / / Volume Laterality Urine (Urine, 09/10/2021 8:27 AM 09/10/20 8:44 Midstream) MEDICAL DEVICE SALES CONSULTANT AM MEDICAL DEVICE SALES CONSULTANT Prasanna Bernal M.D. LAB URINE ORDERABLES Performing Organization Address City/State/ZIP Code Phon e Number [facility]- [address] [place] [address] [facility] [address] [place] [address] System in [place] [address] documented in this encounter Visit Diagnoses Diagnosis 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 (HCC) documented in this encounter Additional Health Concerns Assessment Noted Time PHQ-9 Depression Total Score: 18 04/28/2018 11:27 AM C DT documented as of this encounter Care Teams Asset Protection Lead Relationship Specialty Start Date End Date Shayla Alford D.O. PCP - General Internal Medicine 05/22/20 [address] [place] [phone] documented as of this encounter
--- OUTSIDE RECORDS SUMMARY | 2022-05-28 06:37 | XMS_ITS | Encounter Summary ---
:1945 Author Organization [facility] Address [address] [place] [address] Care Team Providers Name Role Phone Shayla Alford D.O. Primary Care Provider [phone] Encounter Details Date Type Department Care Team Description 09/17/2021 Hospital Encounter Department of Cirilo Bernal Neoplasm Of Laboratory Medicine Pato Mims Bladder Lateral Wall in [place], [address] ([facility]) [address] [place] [phone] Social History Tobacco Use Types Packs/Day [...] have completed or the highest Martin, MEd, FEEDER LOADER, CAYDEN) degree you have received? Sex [...] PEN NEEDLE, DIABETIC Yani Fine 30 0 [facility] disposable needles. For use with Insulin Pens, 4 times daily SYRINGE-NEEDLE,INSULIN,0 0 .5 ML (INSULIN SYRINGE [facility]) traZODone (DESYREL) 100 Take 0.5 tablets (50 [...] Results for this AEROBIC + SUSC, URINE FORWARD AIR CONTROLLER/AIR OFFICER Of Bladder Lateral procedure are in Wall ([facility]) the results section. URINALYSIS WITH Routine 09/17/2021 9:01 AM Malignant Neoplasm Results for this MICROSCOPIC FORWARD AIR CONTROLLER/AIR OFFICER Of Bladder Lateral procedure are in Wall ([facility]) the results section. documented in this encounter Results (ABNORMAL) Bacterial Culture, Aerobic + Susc, Urine (09/17/2021 9:01 AM FORWARD AIR CONTROLLER/AIR OFFICER) Analysis Performed At Patho logist Time Signature Urine Culture Mixed 09/18/2021 MKTO surekha. (A) 9:23 AM FORWARD AIR CONTROLLER/AIR OFFICER Specimen Anatomical Collection Method Collection Time Receive d Time (Source) Location / / Volume Laterality Urine (Urine, 09/17/2021 9:01 AM 09/17/20 2:06 Midstream) FORWARD AIR CONTROLLER/AIR OFFICER PM FORWARD AIR CONTROLLER/AIR OFFICER Comment: Specimen Source Site: Urine Prasanna Bernal M.D. LAB MICROBIOLOGY - GENERAL O RDERABLES Performing Organization Address City/State/ZIP Code Phon e Number [facility] [place] [address] [place] [address] System in [place] [address] [place] [address] (ABNORMAL) Urinalysis with Microscopic: Urine, Midstream (09/17/2021 9:01 AM FORWARD AIR CONTROLLER/AIR OFFICER) Analysis Performed At Patho logist Time Signature Source Urine, Urine, 09/17/2021 FB60 Midstream 9:02 AM FORWARD AIR CONTROLLER/AIR OFFICER Clarity Clear Clear 09/17/2021 FB60 9:10 AM FORWARD AIR CONTROLLER/AIR OFFICER Color Yellow 09/17/2021 FB60 9:10 AM FORWARD AIR CONTROLLER/AIR OFFICER Comment: ----REFERENCE VALUE---- Colorless Yellow Mitra Blood Moderate (A) Negative 09/17/2021 9:10 AM FORWARD AIR CONTROLLER/AIR OFFICER FB60 Nitrite Negative Negative 09/17/2021 9:10 AM FORWARD AIR CONTROLLER/AIR OFFICER FB60 Leukocyte Esterase Negative Negative 09/17/2021 9:10 AM CS T FB60 Protein 100 (A) mg/dL 09/17/2021 9:10 AM FORWARD AIR CONTROLLER/AIR OFFICER FB60 Comment: ----REFERENCE VALUE---- Negative Trace Glucose >=1000 (A) Negative mg/dL 09/17/2021 9:10 AM FORWARD AIR CONTROLLER/AIR OFFICER F B60 Ketones, QI(U) Negative Negative mg/dL 09/17/2021 9:[address] FB60 Bilirubin Negative Negative 09/17/2021 9:10 AM FORWARD AIR CONTROLLER/AIR OFFICER FB60 pH 5.5 5.0 - 8.0 09/17/2021 9:10 AM FORWARD AIR CONTROLLER/AIR OFFICER FB60 Specific [place] 1.015 1.001 - 1.035 09/17/2021 9:10 AM FORWARD AIR CONTROLLER/AIR OFFICER FB60 Urobilinogen 0.2 0.2 - 1.0 mg/dL 09/17/2021 9:10 AM CS T FB60 White Blood Cells 4-10 (A) /hpf 09/17/2021 9:25 AM FORWARD AIR CONTROLLER/AIR OFFICER FB60 Comment: ----REFERENCE VALUE---- Males: 0-3 Females: 0-10 Unknown: 0-10 Red Blood Cells 3-10 (A) 0 - 2 /hpf 09/17/2021 9:25 AM FORWARD AIR CONTROLLER/AIR OFFICER FB60 Dysmorphic Red Blood Cells <=25 <=25 % 09/17/2021 9: 25 AM FORWARD AIR CONTROLLER/AIR OFFICER FB60 Specimen Anatomical Collection Method Collection Time Receive d Time (Source) Location / / Volume Laterality Urine (Urine, 09/17/2021 9:01 AM 12/20/20 21 9:01 Midstream) FORWARD AIR CONTROLLER/AIR OFFICER AM FORWARD AIR CONTROLLER/AIR OFFICER Prasanna Bernal M.D. LAB URINE ORDERABLES Performing Organization Address City/State/ZIP Code Phon e Number [place] [address] [place] [address] [facility] [address] [place] [address] System in [place] [address] documented in this encounter Visit Diagnoses Diagnosis 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 (HCC) documented in this encounter Additional Health Concerns Assessment Noted Time PHQ-9 Depression Total Score: 18 04/28/2018 11:27 AM C DT documented as of this encounter Care Teams Rn Labor And Delivery Relationship Specialty Start Date End Date Shayla Alford D.O. PCP - General Internal Medicine 05/22/[address] [place] [phone] documented as of this encounter
--- OUTSIDE RECORDS SUMMARY | 2022-05-28 06:37 | XMS_ITS | Encounter Summary ---
:1945 Author Organization [facility] Address [address] [place] [address] Care Team Providers Name Role Phone Shayla Alford D.O. Primary Care Provider [phone] Reason for Referral Outpatient (Routine) - Closed Specialty Diagnoses / Procedures Referred By Contact Refer red To Contact Diagnoses Cyst Breast Left Shayla Alford [facility] Region Procedures BI Breast Diagnostic Bilateral with Tomosynthesis D.O. [address] [place] [phone] Referral ID Status Reason Start Date Expiration Date Visits Requ ested Visits Authorized [id number] Closed 09/14/2021 09/14/2022 1 1 DRIER Reason for Visit Outpatient (Routine) - Closed Specialty Diagnoses / Procedures Referred By Contact Refer red To Contact Diagnoses Cyst Breast Left Shayla Alford [facility] Region Procedures BI Breast Diagnostic Bilateral with Tomosynthesis D.O. [address], [place] [phone] Referral ID Status Reason Start Date Expiration Date Visits Requ ested Visits Authorized [id number] Closed 09/14/2021 09/14/2022 1 1 Encounter Details Date Type Department Care Team Description 10/09/2021 Hospital Encounter Department of [place], Cyst Breast Left Radiology [place] [address] [place] [phone] Social History Tobacco Use Types Packs/Day [...] completed or the highest Martin, MEd, PRODUCTION TEAM LEADER, CAYDEN) degree you have received? [...] (FREESTYLE SOFYA) a day. Use to scan [facility] Sofya sensor 5 times daily and as [...] Shayla Alford D.O. - 10/09/2021 11:05 AM SOCK DRIER Good news, there is no cancer of the breast. There is some enlargement in the breast tissue which islikely related to medications. If it does not improve, we can do further testing. This will mean more blood work. Electronically signed by: Shayla Alford D.O. 10/09/21 11:05 AM SOCK DRIER DRIER documented in this encounter Plan of Treatment Not on filedocumented as of this encounter Procedures Procedure Name Priority Date/Time Associated Comments Diagnosis BI BREAST DIAGNOSTIC RAD - Routine 10/09/2021 10:08 Cyst Breast Lef t Results for BILATERAL WITH (most inpatients AM SOCK DRIER this proc edure TOMOSYNTHESIS and all are in the outpatients) results section. documented in this encounter Results BI Breast Diagnostic Bilateral with Tomosynthesis (10/09/2021 10:08 AM SOCK DRIER) Anatomical Region Laterality Modality Breast, Breast Imaging RST LOS, Breast Imaging ARZ LOS, [address] Bilateral Mammography Imaging FLA LOS Specimen (Source) Anatomical Collection Method Collection Time Re ceived Time Location / / Volume Laterality 10/09/2021 10:38 AM SOCK DRIER Impressions 10/09/2021 10:41 AM SOCK DRIER 1. ??Left gynecomastia corresponds with lump. 2. ??No mammographic or sonographic find ings of malignancy. RECOMMENDATION: ??Individualized Recomme ndation Recommend management be based on clinica l grounds. ASSESSMENT: ??BI-RADS: 2: Benign. Narrative 10/09/2021 10:41 AM SOCK DRIER EXAM: ??BI BREAST DIAGNOSTIC BILATERAL WITH TOMOSYNTHESIS, [...] documented as of this encounter Care Teams Mcat Tutor Relationship Specialty Start Date End Date Shayla Alford D.O. PCP - General Internal Medicine 05/22/20 [address], [place] [phone] documented as of this encounter
--- OUTSIDE RECORDS SUMMARY | 2022-05-28 06:37 | XMS_ITS | Encounter Summary ---
:1945 Author Organization [facility] Address [address] [place] [address] Care Team Providers Name Role Phone Shayla Alford D.O. Primary Care Provider [phone] Reason for Referral Outpatient (Routine) - Closed Specialty Diagnoses / Procedures Referred By Contact Refer red To Contact Community Internal Diagnoses Preoperative Exam ARMAAN Alford [facility] Tulio Mcguire [address] [place] [phone] Referral ID Status Reason Start Date Expiration Date Visits Requ ested Visits Authorized [id number] Closed 09/13/2021 09/13/2022 1 1 WORKER Outpatient (Routine) - Closed Specialty Diagnoses / Procedures Referred By Contact Refer red To Contact Dermatology Diagnoses Lesion Skin Shayla Alford D.O. [facility] [address] [place] [phone] Referral ID Status Reason Start Date Expiration Date Visits V isits Requested Authorized [id number] Closed Specialty 09/13/2021 09/13/2022 1 1 Services Required WORKER Outpatient (Routine) - Closed Specialty Diagnoses / Procedures Referred By Contact Refer red To Contact Diagnoses Cyst Breast Left Shayla Alford [facility] [place] Region Procedures BI Ultrasound Breast Axilla Left D.O. [address] [phone] Referral ID Status Reason Start Date Expiration Date Visits Requ ested Visits Authorized [id number] Closed 09/13/2021 09/13/2022 1 1 WORKER Reason for Visit Reason Comments Pre-op Exam Colonoscopy-DOS Unknown. 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 Chronic Kidney Disease (CKD), Stage 3b G lomerular Filtration Rate (GFR) 30 To 44 (HCC); [place] [address] [place] [address] Hypothyroidism; [address] [place], [place] Cyst Breast Left; [place] [address] Lesion Skin; [phone] Preoperative Exam Social History [...] do you attend shinto or Never 2021 worship services? Do you belong to any clubs or No 10/09/2021 organizations such as shinto groups, unions, [employer]kling [employer] or athletic groups, or school groups? [...] have completed or the highest Martin, MEd, PROCESS CHEMIST, CAYDEN) degree you have received? Sex Assigned at Date Recorded Male 05/21/2018 2:34 PM CDT documented as of this encounter Last Filed Vital Signs Vital Sign Reading Time Taken Comments Blood Pressure 120/62 09/13/2021 10:59 AM WIRE WORKER Pulse 60 09/13/2021 10:59 AM WIRE WORKER Temperature 36.3 ??C (97.4 ??F) 09/13/2021 10:59 AM WIRE WORKER Respiratory Rate - - Oxygen Saturation - - Inhaled Oxygen Concentration - - Weight 99.9 kg (220 lb 3.8 oz) 09/13/2021 10:59 AM WIRE WORKER Height 190.5 cm (6' 3) 09/13/2021 10:59 AM WIRE WORKER Body Mass Index 27.53 09/13/2021 10:59 AM WIRE WORKER documented in this encounter H&P Notes Shayla Alford D.O. - 09/13/2021 11:00 AM CST SUBJECTIVE CHIEF COMPLAINT / REASON FOR VISIT Jonnathan Costa is a 76 y.o. male who presents for evaluation of Pre-op Exam (Colonoscopy-DOS Unknown. ) and Follow-up (Diabetes, Bladder cancer, Asthma). HISTORY OF PRESENT ILLNESS Jnonathan Costa is a very pleasant 76-year-old male [...] increased fatigue. He is followed locally in [facility] urology clinic. He does have a repeat [...] him today. He is managed through the [place] for his diabetes and awaiting the [employer] monitoring system. He has done well on [...] [facility] for his diabetes and awaiting the [employer] monitoring system. He has done well on [...] visit (clinic); Future; Expected date: 10/14/2021 - [facility] Internal Medicine office visit (clinic); Future; Expected date: 10/14/2021 Other orders - [facility] Internal Medicine office visit (clinic) Symptoms: if [...] by: Shayla Alford D.O. 10/05/21 2:47 PM WIRE WORKER Time spent 32 minutes WORKER documented in this encounter Plan of [...] Ultrasound Breast Axilla Left (10/09/2021 10:54 AM WIRE WORKER) Anatomical Region Laterality Modality Breast, Breast Imaging RST LOS, Breast Imaging FLA [facility] Left Ultrasound Specimen (Source) Anatomical Collection Method Collection Time Re ceived Time Location / / Volume Laterality 10/09/2021 10:38 AM WIRE WORKER Impressions 10/09/2021 10:41 AM WIRE WORKER 1. ??Left gynecomastia corresponds with lump. 2. ??No mammographic or sonographic find ings of malignancy. RECOMMENDATION: ??Individualized Recomme ndation Recommend management be based on clinica l grounds. ASSESSMENT: ??BI-RADS: 2: Benign. Narrative 10/09/2021 10:41 AM WIRE WORKER EXAM: ??BI BREAST DIAGNOSTIC BILATERAL WITH TOMOSYNTHESIS, [...] as of this encounter Care Teams Production Supv Relationship Specialty Start Date End Date Shayla Alford D.O. PCP - General Internal Medicine 05/22/20 [address] [place] [address] documented as of this encounter
--- OUTSIDE RECORDS SUMMARY | 2022-05-28 06:37 | XMS_ITS | Encounter Summary ---
:1945 Author Organization [facility] Address [address] [place] [address] Care Team Providers Name Role Phone Shayla Alford D.O. Primary Care Provider [phone] Encounter Details Date Type Department Care Team Description 10/18/2021 Hospital Encounter Department of Prateek Bernal Primary; Laboratory Medicine Pato Mims Chronic Kidney Disease (CKD), Stage 3b G lomerular Filtration Rate (GFR) 30 To 44 (HCC); in [place] Malignant Neop lasm Of Bladder Lateral Wall (HCC) [address] [place] [phone] Social History Tobacco Use Types Packs/Day Years [...] do you attend congregation or Never 2021 pentecostal services? Do you [...] completed or the highest Martin, MEd, DYE CAN OPERATOR, CAYDEN) degree you have received? Sex [...] (FREESTYLE SOFYA) times a day. Use to [facility] scan Sofya sensor 5 [...] PEN NEEDLE, DIABETIC Yani Fine [address] [facility] disposable needles. For use with Insulin Pens, 4 times daily SYRINGE-NEEDLE,INSULIN,0 0 .5 ML (INSULIN SYRINGE [facility]) torsemide (DEMADEX) 20 Take 1 tablet (20 [...] Priority Date/Time Associated Diagnosis Comme nts CYTOLOGY NON-ELECTRONICS TECH Routine 10/18/2021 10:20 Malignant Neoplasm O f Results for this (SCHEDULED) AM STUDIO CONTROL OPERATOR Bladder Lateral Wall procedu re are in ([facility]) the results section. UROVYSION (R) FOR Routine 10/18/2021 10:20 Malignant Neoplasm Of Results for this BLADDER CANCER AM STUDIO CONTROL OPERATOR Bladder Lateral Wall proce dure are in ([facility]) the results section. ALBUMIN, RANDOM, U Routine 10/18/2021 10:20 Hypertension Resul ts for this AM STUDIO CONTROL OPERATOR Essential Primar y procedure are in Chronic Kidney the results Disease (CKD), Stage section . 3b Glomerular Filtration Rate (GFR) 30 To 44 ([facility]) URINALYSIS WITH Routine 10/18/2021 10:20 Hypertension Results for this MICROSCOPIC AM STUDIO CONTROL OPERATOR Essential Primar y procedure are in Chronic Kidney the results Disease (CKD), Stage section . 3b Glomerular Filtration Rate (GFR) 30 To 44 ([facility]) documented in this encounter Results UroVysion for Detection of Bladder Cancer, Urine (10/18/2021 10:20 AM STUDIO CONTROL OPERATOR) Component Value Ref Test Analysis Performed Pathologis t Range Method Time At [facility] Result Summary Negative 11/05/2021 DTL 5:07 PM STUDIO CONTROL OPERATOR Karyotype No evidence of 11/05/2021 DTL urothelial 5:07 PM STUDIO CONTROL OPERATOR carcinoma. Reason for Evaluate for 11/05/2021 DTL referral urothelial 5:07 PM STUDIO CONTROL OPERATOR carcinoma. Specimen Varies 11/05/2021 DTL 5:07 PM STUDIO CONTROL OPERATOR Source Voided 11/05/2021 DTL 5:07 PM STUDIO CONTROL OPERATOR Released By Dhiraj Porras, 11/05/2021 DTL M.D. 5:07 PM STUDIO CONTROL OPERATOR Interpretation This test result does not rule out the possibility t hat the 11/05/2021 DTL patient may have a low-grade (i.e. grade 1 or 2) 5:07 PM STUDIO CONTROL OPERATOR non-invasive papillary urothelial carcinoma. Some patients with low grade non-invasive papillary urothelial carcinoma do not have abnormalities with this FISH test. Comment: ----ADDITIONAL INFORMATION---- Fluorescence in situ hybridization (FISH ) with centromere probes for chromosomes 3 (D3Z1), 7(D7Z1), 17(D17Z1) , and a locus specific probe for 9p21 ([employer] [place], [place]) . This test has been modified from the man markor's instructions. Its performance characteristics were determi darnell by [facility] in a manner consistent with CLIA requirements. This test has not been cleared or approved by the U.S. Food and Drug Administration . Specimen Anatomical Collection Method Collection Time Receive d Time (Source) Location / / Volume Laterality Varies (Urine, 10/18/2021 10:20 2 Voided) AM STUDIO CONTROL OPERATOR 11:31 AM STUDIO CONTROL OPERATOR Narrative This result has an attachment that is no t available. Prasanna Bernal M.D. LAB GENETIC TESTING Performing Organization Address City/State/ZIP Code Phon e Number [facility] - [address] [place], [place] [address] [facility] [place] [address] [facility] [address] Cytology Non-ELECTRONICS TECH (Scheduled) (10/18/2021 10:20 AM STUDIO CONTROL OPERATOR) Component Value Ref Test Analysis Performed [facility] Range Method Time Signature 10/19/2021 [facility] 9:33 AM STUDIO CONTROL OPERATOR Fixative 50% alcohol 10/19/2021 [facility] 9:33 AM STUDIO CONTROL OPERATOR Report Brady Goodrich MD 10/19/2021 [facility] electronically 9:33 AM STUDIO CONTROL OPERATOR signed by I verify that I have examined all relevant slides/materials for the specimen(s) and rendered or confirmed the diagnosis. Gross Description Received 50 10/19/2021 [facility] ml of yellow 9:33 AM STUDIO CONTROL OPERATOR alcohol fixed fluid. Collection clean void 10/19/2021 [facility] Procedure 9:33 AM STUDIO CONTROL OPERATOR Source A. Urine, 10/19/2021 [facility] Clean Catch, 9:33 AM STUDIO CONTROL OPERATOR voided Clinical History unknown 10/19/2021 [facility] 9:33 AM STUDIO CONTROL OPERATOR Interpretation A. Urine, Clean Catch, voided (cytospin): Negative f or 10/19/2021 [facility] High-Grade Urothelial Carcinoma. 9:33 AM STUDIO CONTROL OPERATOR Specimen Anatomical Collection Method Collection Time Receive d Time (Source) Location / / Volume Laterality Varies (Urine, 10/18/2021 10:20 2:04 Clean Catch) AM STUDIO CONTROL OPERATOR PM STUDIO CONTROL OPERATOR Narrative This result has an attachment that is no t available. Prasanna Bernal M.D. LAB SURG PATH ORDERABLES Performing Organization Address City/State/ZIP Code Phon e Number [facility]- [address] [place] [address] Cyt[address] [place] [address] (ABNORMAL) Albumin, Random, Urine (10/18/2021 10:20 AM STUDIO CONTROL OPERATOR) [facility] gist Method Time Signature Microalbumin 66.0 mg/L 10/18/2021 OWAT 1:14 PM STUDIO CONTROL OPERATOR Creatinine 26 mg/dL 10/18/2021 OWAT 1:14 PM STUDIO CONTROL OPERATOR Albumin/Creatinin 254 (H) <17 mg/g 10/18/2021 OWAT e Ratio 1:14 PM STUDIO CONTROL OPERATOR Specimen Anatomical Collection Method Collection Time Receive d Time (Source) Location / / Volume Laterality Urine (Urine, 10/18/2021 10:20 10/18/2021 Clean Catch) AM STUDIO CONTROL OPERATOR 12:44 PM STUDIO CONTROL OPERATOR Melissa Blackmon LAB URINE ORDERABLES Performing Organization Address City/State/ZIP Code Phon e Number [facility]- [address] [place] [address] [facility] [place] [address] System in [place] [address] [facility] (ABNORMAL) Urinalysis with Microscopic: Urine, Midstream (10/18/2021 10:20 AM STUDIO CONTROL OPERATOR) Analysis Performed At Patho logist Time Signature Source Urine, Urine, 10/18/2021 FB60 Midstream 10:31 AM STUDIO CONTROL OPERATOR Clarity Clear Clear 10/18/2021 FB60 11:03 AM STUDIO CONTROL OPERATOR Color Yellow 10/18/2021 FB60 11:03 AM STUDIO CONTROL OPERATOR Comment: ----REFERENCE VALUE---- Colorless Yellow Mitra Blood Negative Negative 10/18/2021 11:03 AM STUDIO CONTROL OPERATOR FB60 Nitrite Negative Negative 10/18/2021 11:03 AM STUDIO CONTROL OPERATOR FB60 Leukocyte Esterase Negative Negative 10/18/2021 11:[address] FB60 Protein Negative mg/dL 10/18/2021 11:03 AM STUDIO CONTROL OPERATOR FB60 Comment: ----REFERENCE VALUE---- Negative Trace Glucose >=1000 (A) Negative mg/dL 10/18/2021 11:03 AM STUDIO CONTROL OPERATOR FB60 Ketones, QI(U) Negative Negative mg/dL 10/18/2021 11:03 AM STUDIO CONTROL OPERATOR FB60 Bilirubin Negative Negative 10/18/2021 11:03 AM STUDIO CONTROL OPERATOR FB60 pH 5.5 5.0 - 8.0 10/18/2021 11:03 AM STUDIO CONTROL OPERATOR FB60 Specific [place] 1.010 1.001 - 1.035 10/18/2021 11:03 AM STUDIO CONTROL OPERATOR FB60 Urobilinogen 0.2 0.2 - 1.0 mg/dL 10/18/2021 11:[address] FB60 White Blood Cells Occ-3 /hpf 10/18/2021 11:04 AM CS T FB60 Comment: ----REFERENCE VALUE---- Males: 0-3 Females: 0-10 Unknown: 0-10 Red Blood Cells None Seen 0 - 2 /hpf 10/18/2021 11:04 AM STUDIO CONTROL OPERATOR FB60 Specimen Anatomical Collection Method Collection Time Receive d Time (Source) Location / / Volume Laterality Urine (Urine, 10/18/2021 10:20 10/18/2021 Midstream) AM STUDIO CONTROL OPERATOR 10:31 AM STUDIO CONTROL OPERATOR Melissa Blackmon LAB URINE ORDERABLES Performing Organization Address City/State/ZIP Code Phon e Number [facility]- [address] [place] [address] [facility] [address] [place] [address] System in [place] [address] documented in this encounter Visit Diagnoses Diagnosis Hypertension Essential Primary Chronic Kidney Disease (CKD), Stage 3b G lomerular Filtration Rate (GFR) 30 To 44 (HCC) 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 (HCC) documented in this encounter Additional Health Concerns Assessment Noted Time PHQ-9 Depression Total Score: 18 04/28/2018 11:27 AM C DT documented as of this encounter Care Teams Epic Interface Analyst Relationship Specialty Start Date End Date Shayla Alford D.O. PCP - General Internal Medicine 05/22/20 [address] [place] [phone] documented as of this encounter
--- OUTSIDE RECORDS SUMMARY | 2022-05-28 06:37 | XMS_ITS | Encounter Summary ---
:1945 Author Organization [facility] Address [address] [place] [address] Care Team Providers Name Role Phone Shayla Alford D.O. Primary Care Provider [phone] Reason for Referral Outpatient (Routine) - Authorized Specialty Diagnoses / Procedures Referred By Contact Refer red To Contact Endocrinology Diagnoses Diabetes Mellitus Type 2 With Diabetic Neuropathy (HCC) Diabetes Mellitus Type 2 With Diabetic Chronic Kidney Disease (HCC) Grace Rehman, [facility] FAROOQ, R.N. 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 Do you [...] have completed or the highest Martin, MEd, COLLEGE COACH, CAYDEN) degree you have received? Sex [...] as of this encounter Care Teams Event Management Consultant Relationship Specialty Start Date End Date Shayla Alford D.O. PCP - General Internal Medicine 05/22/[address] [phone] documented as of this encounter
--- OUTSIDE RECORDS SUMMARY | 2022-05-28 06:38 | XMS_ITS | Encounter Summary ---
:1945 Author Organization [facility] Address [address] [place] [address] Care Team Providers Name Role Phone Shayla Alford D.O. Primary Care Provider [phone] Encounter Details Date Type Department Care Team Description 08/20/2021 Hospital Encounter Department of Cirilo Bernal Neoplasm Of Laboratory Medicine Pato Mims Bladder Lateral Wall in [place], [address] ([facility]) [address] [place] [phone] Social History Tobacco Use Types Packs/Day [...] completed or the highest Martin, MEd, ELECTRIC DISTRIBUTION CHECKER, CAYDEN) degree you have received? Sex Assigned [...] SOFYA) times a day. Use to [facility] scan Sofya sensor 5 times daily and [...] PEN NEEDLE, DIABETIC Yani Fine 30 0 [facility] disposable needles. For use with Insulin Pens, 4 times daily SYRINGE-NEEDLE,INSULIN,0 0 .5 ML (INSULIN SYRINGE [facility]) traZODone (DESYREL) 100 Take 0.5 tablets (50 [...] bedtime. injectionIndications: Diabetes Mellitus Type 2 Hyperglycemia ([facility]) lisinopriL Take 1 tablet by 0 11/15/2008 [...] Results for this AEROBIC + SUSC, URINE PLATING MACHINE OPERATOR Of Bladder Lateral procedure are in [place] ([facility]) the results section. URINALYSIS WITH Routine 08/20/2021 8:19 AM Malignant Neoplasm Results for this MICROSCOPIC PLATING MACHINE OPERATOR Of Bladder Lateral procedure are in [place] ([facility]) the results section. documented in this encounter Results (ABNORMAL) Bacterial Culture, Aerobic + Susc, Urine (08/20/2021 8:19 AM PLATING MACHINE OPERATOR) Analysis Performed At [facility] Urine Culture Mixed 08/21/2021 [facility] surekha. (A) 10:32 AM PLATING MACHINE OPERATOR Specimen Anatomical Collection Method Collection Time Receive d Time (Source) Location / / Volume Laterality Urine (Urine, 08/20/2021 8:19 AM 08/20/20 2:13 Midstream) PLATING MACHINE OPERATOR PM PLATING MACHINE OPERATOR Comment: Specimen Source Site: Urine Prasanna Bernal M.D. LAB MICROBIOLOGY - GENERAL O RDERABLES Performing Organization Address City/State/ZIP Code Phon e Number [facility]- [address] [place] [id number] [place] [address] (ABNORMAL) Urinalysis with Microscopic: Urine, Midstream (08/20/2021 8:19 AM PLATING MACHINE OPERATOR) Analysis Performed At [facility] Signature Source Urine, Urine, 08/20/2021 FB60 Midstream 8:47 AM PLATING MACHINE OPERATOR Clarity Clear Clear 08/20/2021 FB60 9:04 AM PLATING MACHINE OPERATOR Color Yellow 08/20/2021 FB60 9:04 AM PLATING MACHINE OPERATOR Comment: ----REFERENCE VALUE---- Colorless Yellow Mitra Blood Small (A) Negative 08/20/2021 9:04 AM PLATING MACHINE OPERATOR FB60 Nitrite Negative Negative 08/20/2021 9:04 AM PLATING MACHINE OPERATOR FB60 Leukocyte Esterase Negative Negative 08/20/2021 9:04 AM CS T FB60 Protein Negative mg/dL 08/20/2021 9:04 AM PLATING MACHINE OPERATOR FB60 Comment: ----REFERENCE VALUE---- Negative Trace Glucose >=1000 (A) Negative mg/dL 08/20/2021 9:04 AM PLATING MACHINE OPERATOR F B60 Ketones, QI(U) Negative Negative mg/dL 08/20/2021 9:[address] FB60 Bilirubin Negative Negative 08/20/2021 9:04 AM PLATING MACHINE OPERATOR FB60 pH 5.5 5.0 - 8.0 08/20/2021 9:04 AM PLATING MACHINE OPERATOR FB60 Specific [place] 1.010 1.001 - 1.035 08/20/2021 9:04 AM PLATING MACHINE OPERATOR FB60 Urobilinogen 0.2 0.2 - 1.0 mg/dL 08/20/2021 9:04 AM CS T FB60 White Blood Cells 11-20 (A) /hpf 08/20/2021 9:04 AM PLATING MACHINE OPERATOR FB60 Comment: ----REFERENCE VALUE---- Males: 0-3 Females: 0-10 Unknown: 0-10 Red Blood Cells Occ-2 0 - 2 /hpf 08/20/2021 9:04 AM PLATING MACHINE OPERATOR FB60 Dysmorphic Red Blood Cells <=25 <=25 % 08/20/2021 9: 04 AM PLATING MACHINE OPERATOR FB60 Squamous Cells Occ-3 /hpf 08/20/2021 9:04 AM PLATING MACHINE OPERATOR FB 60 Specimen Anatomical Collection Method Collection Time Receive d Time (Source) Location / / Volume Laterality Urine (Urine, 08/20/2021 8:19 AM 08/20/20 8:47 Midstream) PLATING MACHINE OPERATOR AM PLATING MACHINE OPERATOR Prasanna Bernal M.D. LAB URINE ORDERABLES Performing Organization Address City/State/ZIP Code Phon e Number [facility]- [address] [place] [address] [facility] [address] [place] [address] System in [place] [address] documented in this encounter Visit Diagnoses Diagnosis 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 (HCC) documented in this encounter Additional Health Concerns Assessment Noted Time PHQ-9 Depression Total Score: 18 04/28/2018 11:27 AM C DT documented as of this encounter Care Teams Emergency Department Technician Relationship Specialty Start Date End Date Shayla Alford D.O. PCP - General Internal Medicine 05/22/[address] [phone] documented as of this encounter
--- OUTSIDE RECORDS SUMMARY | 2022-05-28 06:38 | XMS_ITS | Encounter Summary ---
:1945 Author Organization [facility] Address [address] [place] [address] Care Team Providers Name Role Phone Shayla Alford D.O. Primary Care Provider [phone] Reason for Visit Reason Comments Communication Encounter Details Date Type Department Care Team Description 07/11/2021 Clinical Communication Department of Urology Lea Morin Communication in [facility] C, R.N. [address] [place] [phone] Social History Tobacco Use [...] do you attend anabaptism or Never 2021 taoism services? Do you [...] have completed or the highest Martin, MEd, BORING MACHINE OPERATOR VERTICAL, CAYDEN) degree you have received? Sex Assigned [...] documented as of this encounter Care Teams Delivery Department Supervisor Relationship Specialty Start Date End Date Shayla Alford D.O. PCP - General Internal Medicine 05/22/[address] [phone] documented as of this encounter
--- OUTSIDE RECORDS SUMMARY | 2022-05-28 06:38 | XMS_ITS | Encounter Summary ---
:1945 Author Organization [facility] Address [address] [place] [address] Care Team Providers Name Role Phone Shayla Alford D.O. Primary Care Provider [phone] Encounter Details Date Type Department Care Team Description 07/25/2021 Orders Only [facility] PCP [facility] Sa neno Espinal M.D. [address] [place], [place] [phone] (Wo rk) Social History [...] do you attend adventist or Never 2021 church services? Do you [...] have completed or the highest Martin, Sirena, MILK HAULER, CAYDEN) degree you have received? Sex Assigned at Date Recorded Male 05/21/2018 2:34 PM CDT documented as of this encounter Plan of Treatment Not on filedocumented as of this encounter Visit Diagnoses Not on filedocumented in this encounter Additional Health Concerns Assessment Noted Time PHQ-9 Depression Total Score: 18 04/28/2018 11:27 AM C DT documented as of this encounter Care Teams Sales Operations Assistant Relationship Specialty Start Date End Date Shayla Alford D.O. PCP - General Internal Medicine 05/22/[address] [phone] documented as of this encounter
--- OUTSIDE RECORDS SUMMARY | 2022-05-28 06:38 | XMS_ITS | Encounter Summary ---
:1945 Author Organization [facility] Address [address] [place] [address] Care Team Providers Name Role Phone Shayla Alford D.O. Primary Care Provider [phone] Reason for Visit Reason Onset Date Comments Complex Care Coordination 07/29/2021June Esha santillan Encounter Details Date Type Department Care Team Description 07/29/2021 Remote Monitoring Remote Patient LesterSushma Complex Care Monitoring [address] [facility] Coordination (June [facility] [address] [place], [place] Billing ) [address] [facility] [address] [place], [place] [phone] (Work) Social History Tobacco Use Types Packs/Day [...] do you attend congregation or Never 2021 amish services? Do you [...] have completed or the highest Martin, MEd, STREET ENGINEER, CAYDEN) degree you have received? Sex [...] documented as of this encounter Care Teams Woodworker Relationship Specialty Start Date End Date Shayla Alford D.O. PCP - General Internal Medicine 05/22/[address] [phone] documented as of this encounter
--- OUTSIDE RECORDS SUMMARY | 2022-05-28 06:38 | XMS_ITS | Encounter Summary ---
:1945 Author Organization [facility] Address [address] [place] [address] Care Team Providers Name Role Phone Shayla Alford D.OMauro Primary Care Provider [phone] Encounter Details Date Type Department Care Team Description 07/30/2021 Hospital Encounter Department of Alexys Diabete s Mellitus Type 2 Hyperglycemia (HCC); Laboratory Medicine Shayla queen Hyperten sion Essential Primary [facility] [place] [address] [place] [phone] Social History Tobacco Use Types Packs/Day [...] do you attend yarsanism or Never 2021 judaism services? Do you [...] completed or the highest Martin, MEd, BOAT CANVAS MAKER INSTALLER, CAYDEN) degree you have received? Sex [...] PEN NEEDLE, DIABETIC Yani Fine 30 0 [facility] disposable needles. For use with Insulin Pens, 4 times daily SYRINGE-NEEDLE,INSULIN,0 0 .5 ML (INSULIN SYRINGE [facility]) traZODone (DESYREL) 100 [...] eGFR-Black/Afri 36 (L) >=60 07/30/2021 [facility] can Nigerian mL/min/BSA 10:24 AM CDT Comment: ----ADDITIONAL INFORMATION---- Estimated GFR calculated using the 2009 CKD_EPI creatinine equation. eGFR Non-Black/ 31 (L) >=60 mL/min/BSA 07/30/2021 10:24 AM CDT OW[facility] Nigerian Comment: ----ADDITIONAL INFORMATION---- Estimated GFR calculated using [...] Organization Address City/State/ZIP Code Phon e Number [facility]- [address] [place] [address] [place] [address] System in [place] [address] [facility] (ABNORMAL) Hemoglobin A1c (07/30/2021 9:50 AM CDT) [...] Organization Address City/State/ZIP Code Phon e Number [facility]- [address] [place] [address] [facility] [place] [address] System in [place] [address] documented in this encounter Visit Diagnoses Diagnosis Diabetes Mellitus Type 2 Hyperglycemia ( HCC) Hypertension Essential Primary documented in this encounter Additional Health Concerns Assessment Noted Time PHQ-9 Depression Total Score: 18 04/28/2018 11:27 AM C DT documented as of this encounter Care Teams Hand Patcher Relationship Specialty Start Date End Date Shayla Alford D.O. PCP - General Internal Medicine 05/22/[address] [place] [address] documented as of this encounter
--- OUTSIDE RECORDS SUMMARY | 2022-05-28 06:38 | XMS_ITS | Encounter Summary ---
:1945 Author Organization [facility] Address [address] [place] [address] Care Team Providers Name Role Phone Shayla Alford D.O. Primary Care Provider [phone] Encounter Details Date Type Department Care Team Description 07/11/2021 Hospital Encounter Department of Bandar De Leon ([facility]); Laboratory Medicine S, P.A.-C. Preoperative Exam in [facility] [address] [place], [place] [address] [address] [place], [place] [phone] (Work) [phone] Social History Tobacco Use Types Packs/Day Years [...] do you attend gnosticism or Never 2021 quaker services? Do you [...] completed or the highest Martin, MEd, COUNTER ROLLER, CAYDEN) degree you have received? Sex [...] (FREESTYLE SOFYA) times a day. Use to [facility] scan Sofya sensor 5 times daily and [...] PEN NEEDLE, DIABETIC Yani Fine 30 0 [facility] disposable needles. For use with Insulin Pens, 4 times daily SYRINGE-NEEDLE,INSULIN,0 0 .5 ML (INSULIN SYRINGE [facility]) traZODone (DESYREL) 100 Take 0.5 tablets (50 [...] CBC without Differential (07/11/2021 10:53 AM CDT) [facility] gist Method Time Signature Hemoglobin 12.1 (L) [...] Organization Address City/State/ZIP Code Phon e Number [facility]- [address] [place] [address] [facility] [place] [address] System in [place] [address] (ABNORMAL) Basic Metabolic [...] >=60 mL/min/BSA 07/11/2021 2:50 PM CDT OWAT [place] Comment: ----ADDITIONAL INFORMATION---- Estimated GFR calculated using the 2009 CKD_EPI creatinine equation. eGFR Non-Black/ 36 (L) >=60 mL/min/BSA 07/11/2021 2:50 PM CDT OW[facility] [place] Comment: ----ADDITIONAL INFORMATION---- Estimated GFR calculated using [...] Organization Address City/State/ZIP Code Phon e Number [facility]- [address] [place] [address] [place] [place] [address] System in [place] [address] [facility] (ABNORMAL) Hemoglobin A1c (07/11/2021 10:53 AM [...] Organization Address City/State/ZIP Code Phon e Number [facility]- [address] [place] [address] [facility] [place] [address] System in [place] [address] [facility] documented in this encounter Visit Diagnoses Diagnosis Stroke (HCC) Preoperative Exam documented in this encounter Additional Health Concerns Assessment Noted Time PHQ-9 Depression Total Score: 18 04/28/2018 11:27 AM C DT documented as of this encounter Care Teams Shoulder Joiner Relationship Specialty Start Date End Date Shayla Alford D.O. PCP - General Internal Medicine 05/22/[address] [place] [address] documented as of this encounter
--- OUTSIDE RECORDS SUMMARY | 2022-05-28 06:38 | XMS_ITS | Encounter Summary ---
:1945 Author Organization [facility] Address [address] [place] [address] Care Team Providers Name Role Phone Shayla Alford D.O. Primary Care Provider [phone] Reason for Visit Reason Comments Nurse Visit Bladder Cancer Appointment Request (Routine) - Closed Specialty Diagnoses / Procedures Referred By Contact Refer red To Contact Urology Referral ID Status Reason Start Date Expiration Date Visits Requ ested Visits Authorized [id number] Closed 07/23/2021 07/23/2022 1 1 Encounter Details Date Type Department Care Team Description 08/15/2021 Nurse Only Department of Urology Lea Morin Nu rse Visit; Bladder in Alicia Dixonkarissa will R.N. Cancer [address] [place] [address] [place], [place] [phone] Social History Tobacco Use Types Packs/Day Years [...] do you attend mu-ism or Never 2021 latter-day services? Do you [...] completed or the highest Martin, MEd, ADULT CROSSING GUARD, CAYDEN) degree you have received? Sex Assigned at Date Recorded Male 05/21/2018 2:34 PM CDT documented as of this encounter Last Filed Vital Signs Vital Sign Reading Time Taken Comments Blood Pressure - - Pulse 48 08/15/2021 8:51 AM TRAINING AND DEVELOPMENT COORDINATOR Temperature 36.6 ??C (97.8 ??F) 08/15/2021 8:51 AM TRAINING AND DEVELOPMENT COORDINATOR Respiratory Rate - - Oxygen Saturation 98% 08/15/2021 8:51 AM TRAINING AND DEVELOPMENT COORDINATOR room ai r Inhaled Oxygen Concentration - [...] up scheduled for: 08/22/21 Lea Morin R.N. NING AND DEVELOPMENT COORDINATOR documented in this encounter Plan of [...] 0.9% 50 mL Given 08/15/2021 9:00 AM TRAINING AND DEVELOPMENT COORDINATOR 5 0 mg bladder instillation (JUANY BCG) [...] as of this encounter Care Teams Field Crop Farmworker Relationship Specialty Start Date End Date Shayla Alford D.O. PCP - General Internal Medicine 05/22/[address] [phone] documented as of this encounter
--- OUTSIDE RECORDS SUMMARY | 2022-05-28 06:38 | XMS_ITS | Encounter Summary ---
:1945 Author Organization [facility] Address [address] [place] [address] Care Team Providers Name Role Phone Shayla Alford D.O. Primary Care Provider [phone] Reason for Visit Reason Comments Nurse Visit Bladder Cancer Appointment Request (Routine) - Closed Specialty Diagnoses / Procedures Referred By Contact Refer red To Contact Urology Referral ID Status Reason Start Date Expiration Date Visits Requ ested Visits Authorized [id number] Closed 07/23/2021 07/23/2022 1 1 Encounter Details Date Type Department Care Team Description 08/29/2021 Nurse Only Department of Urology Lea Morin Nu rse Visit; Bladder in Alicia Dixonkarissa will R.N. Cancer [address] [place] [address] [place], [place] [phone] Social History Tobacco Use Types Packs/Day Years [...] do you attend baptist or Never 2021 hinduism services? Do you [...] have completed or the highest Martin, MEd, SSRS REPORT DEVELOPER, CAYDEN) degree you have received? Sex Assigned at Date Recorded Male 05/21/2018 2:34 PM CDT documented as of this encounter Last Filed Vital Signs Vital Sign Reading Time Taken Comments Blood Pressure - - Pulse 51 08/29/2021 10:34 AM SYSTEM ARCHIVE ANALYST Temperature - - Respiratory Rate - - Oxygen Saturation 95% 08/29/2021 10:34 AM SYSTEM ARCHIVE ANALYST room a ir Inhaled Oxygen Concentration - [...] the next BCG treatment. Lea Morin R.N. EM ARCHIVE ANALYST documented in this encounter Plan of [...] 0.9% 50 mL Given 08/29/2021 10:37 AM SYSTEM ARCHIVE ANALYST 50 mg bladder instillation (JUANY BCG) 50 [...] documented as of this encounter Care Teams Salvager Relationship Specialty Start Date End Date Shayla Alford D.O. PCP - General Internal Medicine 05/22/[address] [phone] documented as of this encounter
--- OUTSIDE RECORDS SUMMARY | 2022-05-28 06:38 | XMS_ITS | Encounter Summary ---
:1945 Author Organization [facility] Address [address] [place] [address] Care Team Providers Name Role Phone Shayla Alford D.O. Primary Care Provider [phone] Encounter Details Date Type Department Care Team Description 07/15/2021 Lab Department of [facility]anna [facility]cdonnell [facility] [address] ([facility]) [place], [place] [address] [facility] [address] [place] [address] [phone] Social History Tobacco Use Types Packs/Day Years [...] do you attend druze or Never 2021 yarsani services? Do you [...] have completed or the highest Martin, MEd, SCHEDULING COORDINATOR, CAYDEN) degree you have received? Sex [...] RNA, V Asymptomatic (07/15/2021 8:56 AM CDT) [facility] Method Time Signature SARS-CoV-2 Swab, 07/15/2021 [...] pe rformed using the Aptima SARS-CoV-2 assay ([employer] on the [place] Sys tem under emergency use authorization (EUA) by the U.S. Food and Drug Administ ten. Fact sheets for this EUA assay can be fo und at the following links: For Healthcare Providers: https://www.fd a.gov/media/332809/download For Patients: https://www.fda.gov/media/ 328442/download Specimen Anatomical Collection Method Collection Time Receive d Time (Source) Location / / Volume Laterality Varies 07/15/2021 8:56 AM 5:19 (Nasopharynx) CDT PM CDT Prasanna Bernal M.D. LAB MICROBIOLOGY - GENERAL O ODELLERASHAY Performing Organization Address City/State/[facility] Phon e Number [facility]- [address] [place] [phone] [place] [address] [place] [address] [address] documented in this encounter Visit Diagnoses [...] - General Internal Medicine 05/22/[address] [phone] documented as of this encounter
--- OUTSIDE RECORDS SUMMARY | 2022-05-28 06:38 | XMS_ITS | Encounter Summary ---
:1945 Author Organization [facility] Address [address] [place] [address] Care Team Providers Name Role Phone Shayla Alford D.O. 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 [facility] Procedures Cystoscopy (specific provider) [address] [phone] Referral ID Status Reason Start Date Expiration Date Visits Requ ested Visits Authorized [id number] Closed 07/23/2021 07/23/2022 1 1 Reason for Visit Outpatient (Routine) - Closed Specialty Diagnoses / Procedures Referred By Contact Refer red To Contact Urology Prasanna Bernal M.D. [facility] Region [address] [place] [phone] Referral ID Status Reason Start Date Expiration Date Visits Requ ested Visits Authorized [id number] Closed 07/02/2021 07/02/2022 1 1 Encounter Details Date Type Department Care Team Description 07/23/2021 Office Visit Department of Urology Prasanna Bernal Mal ignant Neoplasm Of Bladder Lateral Wall (HCC) (Primary Dx[place] Malignant Neoplasm Of Bladder Posterior Wall [...] do you attend [employer] or Never 2021 scientology services? 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 Sex [...] of Bladder Cancer, Urine (10/18/2021 10:20 AM CRA) Component Value Ref Test Analysis Performed Pathologis t Range Method Time At Signature Result Summary Negative 11/05/2021 DTL 5:07 PM CRA Karyotype No evidence of 11/05/2021 DTL urothelial 5:07 PM CRA carcinoma. Reason for Evaluate for 11/05/2021 DT referral urothelial 5:07 PM CRA carcinoma. Specimen Varies 11/05/2021 DTL 5:07 PM CRA Source Voided 11/05/2021 DTL 5:07 PM CRA Released By Dhiraj Porras, 11/05/2021 DT Pato 5:07 PM CRA Interpretation This test result does not rule out the possibility t hat the 11/05/2021 DTL patient may have a low-grade (i.e. grade 1 or 2) 5:07 PM CRA non-invasive papillary urothelial carcinoma. Some patients with low grade non-invasive papillary urothelial carcinoma do not have abnormalities with this FISH test. Comment: ----ADDITIONAL INFORMATION---- Fluorescence in situ hybridization (FISH ) with centromere probes for chromosomes 3 (D3Z1), 7(D7Z1), 17(D17Z1) , and a locus specific probe for 9p21 ([employer] [place], [place]) . This test has been modified from the man ufacturer's instructions. Its performance characteristics were determi darnell by [facility] in a manner consistent with CLIA requirements. This test has not been cleared or approved by the U.S. Food and Drug Administration . Specimen Anatomical Collection Method Collection Time Receive d Time (Source) Location / / Volume Laterality Varies (Urine, 10/18/2021 10:20 2 Voided) AM CRA 11:31 AM CRA Narrative This result has an attachment that is no t available. Prasanna Bernal M.D. LAB GENETIC TESTING Performing Organization Address City/State/ZIP Code Phon e Number [facility] - [address] [place], [place] [address] [place] [address] [facility] [address] Cytology Non-BOOM CRANE OPERATOR (Scheduled) (10/18/2021 10:20 AM CRA) Component Value Ref Test Analysis Performed At [facility] gist Range Method Time Signature 10/19/2021 HKCY 9:33 AM CRA Fixative 50% alcohol 10/19/2021 HKCY 9:33 AM CRA Report Brady Goodrich MD 10/19/2021 HK electronically 9:33 AM CRA signed by I verify that I have examined all relevant slides/materials for the specimen(s) and rendered or confirmed the diagnosis. Gross Description Received 50 10/19/2021 HKCY ml of yellow 9:33 AM CRA alcohol fixed fluid. Collection clean void 10/19/2021 HK[facility] Procedure 9:33 AM CRA Source A. Urine, 10/19/2021 HK[facility] Clean Catch, 9:33 AM CRA voided Clinical History unknown 10/19/2021 [facility] 9:33 AM CRA Interpretation A. Urine, Clean Catch, voided (cytospin): Negative f or 10/19/2021 HK[facility] High-Grade Urothelial Carcinoma. 9:33 AM CRA Specimen Anatomical Collection Method Collection Time Receive d Time (Source) Location / / Volume Laterality Varies (Urine, 10/18/2021 10:20 2 2:04 Clean Catch) AM CRA PM CRA Narrative This result has an attachment that is no t available. Prasanna Bernal M.D. LAB SURG PATH ORDERABLES Performing Organization Address [facility] Phon e Number [address] [address] [facility] [address] Cyt[address] [place] [address] (ABNORMAL) Bacterial Culture, Aerobic + Susc, Urine (09/17/2021 9:01 AM CRA) Analysis Performed At Patho logist Time Signature Urine Culture Mixed 09/18/2021 [facility] surekha. (A) 9:23 AM CRA Specimen Anatomical Collection Method Collection Time Receive d Time (Source) Location / / Volume Laterality Urine (Urine, 09/17/2021 9:01 AM 09/17/20 2:06 Midstream) CRA PM CRA Comment: Specimen Source Site: Urine Prasanna Bernal M.D. LAB MICROBIOLOGY - GENERAL O RDERABLES Performing Organization Address City/[facility] Phon e Number [facility]- [address] [place] [phone] [place] [address] (ABNORMAL) Urinalysis with Microscopic: Urine, Midstream (09/17/2021 9:01 AM CRA) Analysis Performed At Patho logist Time Signature Source Urine, Urine, 09/17/2021 FB60 Midstream 9:02 AM CRA Clarity Clear Clear 09/17/2021 FB60 9:10 AM CRA Color Yellow 09/17/2021 FB60 9:10 AM CRA Comment: ----REFERENCE VALUE---- Colorless Yellow Mitra Blood Moderate (A) Negative 09/17/2021 9:10 AM CRA FB60 Nitrite Negative Negative 09/17/2021 9:10 AM CRA FB60 Leukocyte Esterase Negative Negative 09/17/2021 9:10 AM CS T FB60 Protein 100 (A) mg/dL 09/17/2021 9:10 AM CRA FB60 Comment: ----REFERENCE VALUE---- Negative Trace Glucose >=1000 (A) Negative mg/dL 09/17/2021 9:10 AM CRA F B60 Ketones, QI(U) Negative Negative mg/dL 09/17/2021 9:[address] FB60 Bilirubin Negative Negative 09/17/2021 9:10 AM CRA FB60 pH 5.5 5.0 - 8.0 09/17/2021 9:10 AM CRA FB60 Specific [place] 1.015 1.001 - 1.035 09/17/2021 9:10 AM CRA FB60 Urobilinogen 0.2 0.2 - 1.0 mg/dL 09/17/2021 9:10 AM CS T FB60 White Blood Cells 4-10 (A) /hpf 09/17/2021 9:25 AM CRA FB60 Comment: ----REFERENCE VALUE---- Males: 0-3 Females: 0-10 Unknown: 0-10 Red Blood Cells 3-10 (A) 0 - 2 /hpf 09/17/2021 9:25 AM CRA FB60 Dysmorphic Red Blood Cells <=25 <=25 % 09/17/2021 9: 25 AM CRA FB60 Specimen Anatomical Collection Method Collection Time Receive d Time (Source) Location / / Volume Laterality Urine (Urine, 09/17/2021 9:01 AM 09/17/20 9:01 Midstream) CRA AM CRA Prasanna Bernal M.D. LAB URINE ORDERABLES Performing Organization Address City/State/ZIP Code Phon e Number [facility]- [address] [place] [address] [place] [facility] [address] [place] [address] System in [place] [address] (ABNORMAL) Bacterial Culture, Aerobic + Susc, Urine (09/10/2021 8:27 AM CRA) Analysis Performed At Path logis Time Signature Urine Culture Mixed 09/11/2021 [facility] surekha. (A) 1:04 PM CRA Specimen Anatomical Collection Method Collection Time Receive d Time (Source) Location / / Volume Laterality Urine (Urine, 09/10/2021 8:27 AM 09/10/20 3:35 Midstream) CRA PM CRA Comment: Specimen Source Site: Urine Mid stream Prasanna Bernal M.D. LAB MICROBIOLOGY - GENERAL O RDERABLES Performing Organization Address City/State/ZIP Code Phon e Number [facility]- [address] [place] [phone] [place] [address] System [address] (ABNORMAL) Urinalysis with Microscopic: Urine, Midstream (09/10/2021 8:27 AM CRA) Analysis Performed At [facility] Time Signature Source Urine, Urine, 09/10/2021 FB60 Midstream 8:44 AM CRA Clarity Clear Clear 09/10/2021 FB60 8:58 AM CRA Color Yellow 09/10/2021 FB60 8:58 AM CRA Comment: ----REFERENCE VALUE---- Colorless Yellow Mitra Blood Small (A) Negative 09/10/2021 8:58 AM CRA FB60 Nitrite Negative Negative 09/10/2021 8:58 AM CRA FB60 Leukocyte Esterase Trace (A) Negative 09/10/2021 8:58 AM CS T FB60 Protein Negative mg/dL 09/10/2021 8:58 AM CRA FB60 Comment: ----REFERENCE VALUE---- Negative Trace Glucose >=1000 (A) Negative mg/dL 09/10/2021 8:58 AM CRA F B60 Ketones, QI(U) Negative Negative mg/dL 09/10/2021 8:[address] FB60 Bilirubin Negative Negative 09/10/2021 8:58 AM CRA FB60 pH 5.5 5.0 - 8.0 09/10/2021 8:58 AM CRA FB60 Specific [place] 1.015 1.001 - 1.035 09/10/2021 8:58 AM CRA FB60 Urobilinogen 0.2 0.2 - 1.0 mg/dL 09/10/2021 8:58 AM CS T FB60 White Blood Cells 4-10 (A) /hpf 09/10/2021 9:00 AM CRA FB60 Comment: ----REFERENCE VALUE---- Males: 0-3 Females: 0-10 Unknown: 0-10 Red Blood Cells None Seen 0 - 2 /hpf 09/10/2021 9:00 AM CRA FB60 Specimen Anatomical Collection Method Collection Time Receive d Time (Source) Location / / Volume Laterality Urine (Urine, 09/10/2021 8:27 AM 09/10/20 21 8:44 Midstream) CRA AM CRA Prasanna Bernal M.D. LAB URINE ORDERABLES Performing Organization Address City/[facility] Phon e Number [address] [place], [place] [id number] [place] [address] LAB [address]60 [place] [address] (ABNORMAL) Bacterial Culture, Aerobic + Susc, Urine (09/03/2021 8:34 AM CRA) Analysis Performed At Patho logist Time Signature Urine Culture Mixed 09/04/2021 TO surekha. (A) 1:23 PM CRA Specimen Anatomical Collection Method Collection Time Receive d Time (Source) Location / / Volume Laterality Urine (Urine, 09/03/2021 8:34 AM 09/03/20 21 2:19 Midstream) CRA PM CRA Comment: Specimen Source Site: Urine Prasanna Bernal M.D. LAB MICROBIOLOGY - GENERAL O RDERABLES Performing Organization Address City/[facility] Phon e Number [facility]- [address] [place] [phone] [facility] [place] [address] System in [address] (ABNORMAL) Urinalysis with Microscopic: Urine, Midstream (09/03/2021 8:34 AM CRA) Analysis Performed At Patho logist Time Signature Source Urine, Urine, 09/03/2021 FB60 Midstream 8:49 AM CRA Clarity Clear Clear 09/03/2021 FB60 8:57 AM CRA Color Yellow 09/03/2021 FB60 8:57 AM CRA Comment: ----REFERENCE VALUE---- Colorless Yellow Mitra Blood Trace (A) Negative 09/03/2021 8:57 AM CRA FB60 Nitrite Negative Negative 09/03/2021 8:57 AM CRA FB60 Leukocyte Esterase Negative Negative 09/03/2021 8:57 AM CS T FB60 Protein Negative mg/dL 09/03/2021 8:57 AM CRA FB60 Comment: ----REFERENCE VALUE---- Negative Trace Glucose >=1000 (A) Negative mg/dL 09/03/2021 8:57 AM CRA F B60 Ketones, QI(U) Negative Negative mg/dL 09/03/2021 8:[address] FB60 Bilirubin Negative Negative 09/03/2021 8:57 AM CRA FB60 pH 5.5 5.0 - 8.0 09/03/2021 8:57 AM CRA FB60 Specific [place] 1.010 1.001 - 1.035 09/03/2021 8:57 AM CRA FB60 Urobilinogen 0.2 0.2 - 1.0 mg/dL 09/03/2021 8:57 AM CS T FB60 White Blood Cells 4-10 (A) /hpf 09/03/2021 9:13 AM CRA FB60 Comment: ----REFERENCE VALUE---- Males: 0-3 Females: 0-10 Unknown: 0-10 Red Blood Cells Occ-2 0 - 2 /hpf 09/03/2021 9:13 AM CRA FB60 Specimen Anatomical Collection Method Collection Time Receive d Time (Source) Location / / Volume Laterality Urine (Urine, 09/03/2021 8:34 AM 09/03/20 21 8:49 Midstream) CRA AM CRA Prasanna Bernal M.D. LAB URINE ORDERABLES Performing Organization Address City/State/ZIP Code Phon e Number [facility]- [address] [place] [address] [place] [facility] [address] [place] [address] System in [place] [address] (ABNORMAL) Bacterial Culture, Aerobic + Susc, Urine (08/27/2021 8:25 AM CRA) Analysis Performed At Patho logist Time Signature Urine Culture Mixed 08/28/2021 [place] surekha. (A) 10:47 AM CRA Specimen Anatomical Collection Method Collection Time Receive d Time (Source) Location / / Volume Laterality Urine (Urine, 08/27/2021 8:25 AM 08/27/20 3:01 Midstream) CRA PM CRA Comment: Specimen Source Site: Urine Prasanna Bernal M.D. LAB MICROBIOLOGY - GENERAL O RDERABLES Performing Organization Address City/State/ZIP Code Phon e Number [facility]- [address] [place] [phone] [facility] [place] [address] System in [place] [address] [place] [address] (ABNORMAL) Urinalysis with Microscopic: Urine, Midstream (08/27/2021 12:04 AM CRA) Analysis Performed At Patho logist Time Signature Source Urine, Urine, 08/27/2021 FB60 Midstream 8:49 AM CRA Clarity Clear Clear 08/27/2021 FB60 9:13 AM CRA Color Yellow 08/27/2021 FB60 9:13 AM CRA Comment: ----REFERENCE VALUE---- Colorless Yellow Mitra Blood Trace (A) Negative 08/27/2021 9:13 AM CRA FB60 Nitrite Negative Negative 08/27/2021 9:13 AM CRA FB60 Leukocyte Esterase Small (A) Negative 08/27/2021 9:13 AM CS T FB60 Protein 30 (A) mg/dL 08/27/2021 9:13 AM CRA FB60 Comment: ----REFERENCE VALUE---- Negative Trace Glucose >=1000 (A) Negative mg/dL 08/27/2021 9:13 AM CRA F B60 Ketones, QI(U) Negative Negative mg/dL 08/27/2021 9:[address] FB60 Bilirubin Negative Negative 08/27/2021 9:13 AM CRA FB60 pH 5.5 5.0 - 8.0 08/27/2021 9:13 AM CRA FB60 Specific [place] 1.015 1.001 - 1.035 08/27/2021 9:13 AM CRA FB60 Urobilinogen 0.2 0.2 - 1.0 mg/dL 08/27/2021 9:13 AM CS T FB60 White Blood Cells 4-10 (A) /hpf 08/27/2021 9:13 AM CRA FB60 Comment: ----REFERENCE VALUE---- Males: 0-3 Females: 0-10 Unknown: 0-10 Red Blood Cells Occ-2 0 - 2 /hpf 08/27/2021 9:13 AM CRA FB60 Squamous Cells 4-10 /hpf 08/27/2021 9:13 AM CRA FB 60 Specimen Anatomical Collection Method Collection Time Receive d Time (Source) Location / / Volume Laterality Urine (Urine, 08/27/2021 12:04 08/27/2021 8:49 Midstream) AM CRA AM CRA Prasanna Bernal M.D. LAB URINE ORDERABLES Performing Organization Address [facility] Phon e Number [address] [place] [address] [place] [facility] [address] [place] [address] (ABNORMAL) Bacterial Culture, Aerobic + Susc, Urine (08/20/2021 8:19 AM CRA) Analysis Performed At Patho logist Time Signature Urine Culture Mixed 08/21/2021 [facility] surekha. (A) 10:32 AM CRA Specimen Anatomical Collection Method Collection Time Receive d Time (Source) Location / / Volume Laterality Urine (Urine, 08/20/2021 8:19 AM 08/20/20 2:13 Midstream) CRA PM CRA Comment: Specimen Source Site: Urine Prasanna Bernal M.D. LAB MICROBIOLOGY - GENERAL O RDERABLES Performing Organization Address City/[facility] Phon e Number [address] [address] [place] [address] System in [address] (ABNORMAL) Urinalysis with Microscopic: Urine, Midstream (08/20/2021 8:19 AM CRA) Analysis Performed At Patho logist Time Signature Source Urine, Urine, 08/20/2021 FB60 Midstream 8:47 AM CRA Clarity Clear Clear 08/20/2021 FB60 9:04 AM CRA Color Yellow 08/20/2021 FB60 9:04 AM CRA Comment: ----REFERENCE VALUE---- Colorless Yellow Mitra Blood Small (A) Negative 08/20/2021 9:04 AM CRA FB60 Nitrite Negative Negative 08/20/2021 9:04 AM CRA FB60 Leukocyte Esterase Negative Negative 08/20/2021 9:04 AM CS T FB60 Protein Negative mg/dL 08/20/2021 9:04 AM CRA FB60 Comment: ----REFERENCE VALUE---- Negative Trace Glucose >=1000 (A) Negative mg/dL 08/20/2021 9:04 AM CRA F B60 Ketones, QI(U) Negative Negative mg/dL 08/20/2021 9:[address] FB60 Bilirubin Negative Negative 08/20/2021 9:04 AM CRA FB60 pH 5.5 5.0 - 8.0 08/20/2021 9:04 AM CRA FB60 Specific [place] 1.010 1.001 - 1.035 08/20/2021 9:04 AM CRA FB60 Urobilinogen 0.2 0.2 - 1.0 mg/dL 08/20/2021 9:04 AM CS T FB60 White Blood Cells 11-20 (A) /hpf 08/20/2021 9:04 AM CRA FB60 Comment: ----REFERENCE VALUE---- Males: 0-3 Females: 0-10 Unknown: 0-10 Red Blood Cells Occ-2 0 - 2 /hpf 08/20/2021 9:04 AM CRA FB60 Dysmorphic Red Blood Cells <=25 <=25 % 08/20/2021 9: 04 AM CRA FB60 Squamous Cells Occ-3 /hpf 08/20/2021 9:04 AM CRA FB 60 Specimen Anatomical Collection Method Collection Time Receive d Time (Source) Location / / Volume Laterality Urine (Urine, 08/20/2021 8:19 AM 08/20/20 8:47 Midstream) CRA AM CRA Prasanna Bernal M.D. LAB URINE ORDERABLES Performing Organization Address City/State/ZIP Code Phon e Number [facility]- [address] [place] [address] [place] [facility] [address] [place] [address] System in [place] [address] (ABNORMAL) Bacterial Culture, Aerobic + Susc, Urine (08/13/2021 8:03 AM CRA) Analysis Performed At Patho logist Time Signature Urine Culture Mixed 08/14/2021 [facility] surekha. (A) 9:53 AM CRA Specimen Anatomical Collection Method Collection Time Receive d Time (Source) Location / / Volume Laterality Urine (Urine, 08/13/2021 8:03 AM 08/13/20 21 2:11 Midstream) CRA PM CRA Comment: Specimen Source Site: Urine Prasanna Bernal M.D. LAB MICROBIOLOGY - GENERAL O RDERABLES Performing Organization Address City/State/ZIP Code Phon e Number [facility]- [address] [place] [phone] [facility] [place] [address] System in [place] [address] [place] [address] (ABNORMAL) Urinalysis with Microscopic: Urine, Midstream (08/13/2021 8:03 AM CRA) Analysis Performed At Patho logist Time Signature Source Urine, Urine, 08/13/2021 FB60 Midstream 8:31 AM CRA Clarity Clear Clear 08/13/2021 FB60 8:57 AM CRA Color Yellow 08/13/2021 FB60 8:57 AM CRA Comment: ----REFERENCE VALUE---- Colorless Yellow Mitra Blood Small (A) Negative 08/13/2021 8:57 AM CRA FB60 Nitrite Negative Negative 08/13/2021 8:57 AM CRA FB60 Leukocyte Esterase Trace (A) Negative 08/13/2021 8:57 AM CS T FB60 Protein Trace mg/dL 08/13/2021 8:57 AM CRA FB60 Comment: ----REFERENCE VALUE---- Negative Trace Glucose >=1000 (A) Negative mg/dL 08/13/2021 8:57 AM CRA F B60 Ketones, QI(U) Negative Negative mg/dL 08/13/2021 8:[address] FB60 Bilirubin Negative Negative 08/13/2021 8:57 AM CRA FB60 pH 5.5 5.0 - 8.0 08/13/2021 8:57 AM CRA FB60 Specific [place] 1.015 1.001 - 1.035 08/13/2021 8:57 AM CRA FB60 Urobilinogen 0.2 0.2 - 1.0 mg/dL 08/13/2021 8:57 AM CS T FB60 White Blood Cells Occ-3 /hpf 08/13/2021 8:57 AM CRA FB60 Comment: ----REFERENCE VALUE---- Males: 0-3 Females: 0-10 Unknown: 0-10 Red Blood Cells None Seen 0 - 2 /hpf 08/13/2021 8:57 AM CRA FB60 Squamous Cells Occ-3 /hpf 08/13/2021 8:57 AM CRA FB 60 Specimen Anatomical Collection Method Collection Time Receive d Time (Source) Location / / Volume Laterality Urine (Urine, 08/13/2021 8:03 AM 08/13/20 21 8:31 Midstream) CRA AM CRA Prasanna Bernal M.D. 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 PCP - General Internal Medicine 05/22/[address] [place] [phone] documented as of this encounter
--- OUTSIDE RECORDS SUMMARY | 2022-05-28 06:38 | XMS_ITS | Encounter Summary ---
:1945 Author Organization [facility] Address [address] [place] [address] Care Team Providers Name Role Phone Shayla Alford D.O. Primary Care Provider [phone] Encounter Details Date Type Department Care Team Description 08/13/2021 Hospital Encounter Department of Cirilo Bernal Neoplasm Of Laboratory Medicine Pato Mims Bladder Lateral Wall in [place], [address] ([facility]) [address] [place] [phone] Social History Tobacco Use Types Packs/Day [...] NEEDLE, DIABETIC Yani Fine 30 0 [facility] disposable needles. For use with Insulin Pens, 4 times daily SYRINGE-NEEDLE,INSULIN,0 0 .5 ML (INSULIN SYRINGE [facility]) traZODone (DESYREL) 100 Take [...] bedtime. injectionIndications: Diabetes Mellitus Type 2 Hyperglycemia ([facility]) lisinopriL Take 1 tablet by 0 [...] Results for this AEROBIC + SUSC, URINE MOTOR SETTER Of Bladder Lateral procedure are in Wall ([facility]) the results section. URINALYSIS WITH Routine 08/13/2021 8:03 AM Malignant Neoplasm Results for this MICROSCOPIC MOTOR SETTER Of Bladder Lateral procedure are in Wall ([facility]) the results section. documented in this encounter Results (ABNORMAL) Bacterial Culture, Aerobic + Susc, Urine (08/13/2021 8:03 AM MOTOR SETTER) Analysis Performed At [facility] Urine Culture Mixed 08/14/2021 [facility] surekha. (A) 9:53 AM MOTOR SETTER Specimen Anatomical Collection Method Collection Time Receive d Time (Source) Location / / Volume Laterality Urine (Urine, 08/13/2021 8:03 AM 08/13/20 21 2:11 Midstream) MOTOR SETTER PM MOTOR SETTER Comment: Specimen Source Site: Urine Prasanna Bernal M.D. LAB MICROBIOLOGY - GENERAL O RDERABLES Performing Organization Address City/State/ZIP Code Phon e Number [facility]- [address] [place] [phone] [place] [address] System in [address] (ABNORMAL) Urinalysis with Microscopic: Urine, Midstream (08/13/2021 8:03 AM MOTOR SETTER) Analysis Performed At [facility] Signature Source Urine, Urine, 08/13/2021 FB60 Midstream 8:31 AM MOTOR SETTER Clarity Clear Clear 08/13/2021 FB60 8:57 AM MOTOR SETTER Color Yellow 08/13/2021 FB60 8:57 AM MOTOR SETTER Comment: ----REFERENCE VALUE---- Colorless Yellow Mitra Blood Small (A) Negative 08/13/2021 8:57 AM MOTOR SETTER FB60 Nitrite Negative Negative 08/13/2021 8:57 AM MOTOR SETTER FB60 Leukocyte Esterase Trace (A) Negative 08/13/2021 8:57 AM CS T FB60 Protein Trace mg/dL 08/13/2021 8:57 AM MOTOR SETTER FB60 Comment: ----REFERENCE VALUE---- Negative Trace Glucose >=1000 (A) Negative mg/dL 08/13/2021 8:57 AM MOTOR SETTER F B60 Ketones, QI(U) Negative Negative mg/dL 08/13/2021 8:[address] FB60 Bilirubin Negative Negative 08/13/2021 8:57 AM MOTOR SETTER FB60 pH 5.5 5.0 - 8.0 08/13/2021 8:57 AM MOTOR SETTER FB60 Specific [place] 1.015 1.001 - 1.035 08/13/2021 8:57 AM MOTOR SETTER FB60 Urobilinogen 0.2 0.2 - 1.0 mg/dL 08/13/2021 8:57 AM CS T FB60 White Blood Cells Occ-3 /hpf 08/13/2021 8:57 AM MOTOR SETTER FB60 Comment: ----REFERENCE VALUE---- Males: 0-3 Females: 0-10 Unknown: 0-10 Red Blood Cells None Seen 0 - 2 /hpf 08/13/2021 8:57 AM MOTOR SETTER FB60 Squamous Cells Occ-3 /hpf 08/13/2021 8:57 AM MOTOR SETTER FB 60 Specimen Anatomical Collection Method Collection Time Receive d Time (Source) Location / / Volume Laterality Urine (Urine, 08/13/2021 8:03 AM 08/13/20 8:31 Midstream) MOTOR SETTER AM MOTOR SETTER Prasanna Bernal M.D. LAB URINE ORDERABLES Performing Organization Address City/State/ZIP Code Phon e Number [facility]- [address] [place] [address] [place] [place] [address] [place] [address] System in [place] [address] documented in this encounter Visit Diagnoses Diagnosis 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 (HCC) documented in this encounter Additional Health Concerns Assessment Noted Time PHQ-9 Depression Total Score: 18 04/28/2018 11:27 AM C DT documented as of this encounter Care Teams Dental Laboratory Worker Relationship Specialty Start Date End Date Shayla Alford D.O. PCP - General Internal Medicine 05/22/[address] [phone] documented as of this encounter
--- OUTSIDE RECORDS SUMMARY | 2022-05-28 06:38 | XMS_ITS | Encounter Summary ---
:1945 Author Organization [facility] Address [address] [place] [address] Care Team Providers Name Role Phone Shayla Alford D.O. Primary Care Provider [phone] Encounter Details Date Type Department Care Team Description 09/03/2021 Hospital Encounter Department of Cirilo Bernal Neoplasm Of Laboratory Medicine Pato Mims Bladder Lateral Wall in [place], [address] ([facility]) [address] [place] [phone] Social History Tobacco Use Types Packs/Day [...] do you attend gnosticist or Never 2021 religion services? Do you [...] have completed or the highest Martin, MEd, TRAINING PROGRAM DEVELOPER, CAYDEN) degree you have received? Sex [...] PEN NEEDLE, DIABETIC Yani Fine 30 0 [facility] disposable needles. For use with Insulin Pens, 4 times daily SYRINGE-NEEDLE,INSULIN,0 0 .5 ML (INSULIN SYRINGE [facility]) traZODone (DESYREL) 100 Take 0.5 [...] Results for this AEROBIC + SUSC, URINE INFRASTRUCTURE ENGINEER Of Bladder Lateral procedure are in Wall ([facility]) the results section. URINALYSIS WITH Routine 09/03/2021 8:34 AM Malignant Neoplasm Results for this MICROSCOPIC INFRASTRUCTURE ENGINEER Of Bladder Lateral procedure are in Wall ([facility]) the results section. documented in this encounter Results (ABNORMAL) Bacterial Culture, Aerobic + Susc, Urine (09/03/2021 8:34 AM INFRASTRUCTURE ENGINEER) Analysis Performed At Patho logist Time Signature Urine Culture Mixed 09/04/2021 MKTO surekha. (A) 1:23 PM INFRASTRUCTURE ENGINEER Specimen Anatomical Collection Method Collection Time Receive d Time (Source) Location / / Volume Laterality Urine (Urine, 09/03/2021 8:34 AM 09/03/20 21 2:19 Midstream) INFRASTRUCTURE ENGINEER PM INFRASTRUCTURE ENGINEER Comment: Specimen Source Site: Urine Prasanna Bernal M.D. LAB MICROBIOLOGY - GENERAL O RDERABLES Performing Organization Address City/State/ZIP Code Phon e Number [facility]- [facility] [place] [address] [place] [address] System in [place] [address] [place] [address] (ABNORMAL) Urinalysis with Microscopic: Urine, Midstream (09/03/2021 8:34 AM INFRASTRUCTURE ENGINEER) Analysis Performed At Patho logist Time Signature Source Urine, Urine, 09/03/2021 FB60 Midstream 8:49 AM INFRASTRUCTURE ENGINEER Clarity Clear Clear 09/03/2021 FB60 8:57 AM INFRASTRUCTURE ENGINEER Color Yellow 09/03/2021 FB60 8:57 AM INFRASTRUCTURE ENGINEER Comment: ----REFERENCE VALUE---- Colorless Yellow Mitra Blood Trace (A) Negative 09/03/2021 8:57 AM INFRASTRUCTURE ENGINEER FB60 Nitrite Negative Negative 09/03/2021 8:57 AM INFRASTRUCTURE ENGINEER FB60 Leukocyte Esterase Negative Negative 09/03/2021 8:57 AM CS T FB60 Protein Negative mg/dL 09/03/2021 8:57 AM INFRASTRUCTURE ENGINEER FB60 Comment: ----REFERENCE VALUE---- Negative Trace Glucose >=1000 (A) Negative mg/dL 09/03/2021 8:57 AM INFRASTRUCTURE ENGINEER F B60 Ketones, QI(U) Negative Negative mg/dL 09/03/2021 8:[address] FB60 Bilirubin Negative Negative 09/03/2021 8:57 AM INFRASTRUCTURE ENGINEER FB60 pH 5.5 5.0 - 8.0 09/03/2021 8:57 AM INFRASTRUCTURE ENGINEER FB60 Specific Edgard 1.010 1.001 - 1.035 09/03/2021 8:57 AM INFRASTRUCTURE ENGINEER FB60 Urobilinogen 0.2 0.2 - 1.0 mg/dL 09/03/2021 8:57 AM CS T FB60 White Blood Cells 4-10 (A) /hpf 09/03/2021 9:13 AM INFRASTRUCTURE ENGINEER FB60 Comment: ----REFERENCE VALUE---- Males: 0-3 Females: 0-10 Unknown: 0-10 Red Blood Cells Occ-2 0 - 2 /hpf 09/03/2021 9:13 AM INFRASTRUCTURE ENGINEER FB60 Specimen Anatomical Collection Method Collection Time Receive d Time (Source) Location / / Volume Laterality Urine (Urine, 09/03/2021 8:34 AM 09/03/20 8:49 Midstream) INFRASTRUCTURE ENGINEER AM INFRASTRUCTURE ENGINEER Prasanna Bernal M.D. 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 PCP - General Internal Medicine 05/22/20 [address] [place] [phone] documented as of this encounter
--- OUTSIDE RECORDS SUMMARY | 2022-05-28 06:38 | XMS_ITS | Encounter Summary ---
:1945 Author Organization [facility] Address [address] [place] [address] Care Team Providers Name Role Phone Shayla Alford D.O. Primary Care Provider [phone] Encounter Details Date Type Department Care Team Description 07/12/2021 Orders Only Department of Urology in Prasanna Meng M.D. [place], [place] [address] [place] [phone] (Wo rk) Social History Tobacco [...] do you attend pentecostalism or Never 2021 caodaism services? Do you [...] have completed or the highest Martin, MEd, COMPLEX CARE NURSE PRACTITIONER, CAYDEN) degree you have received? Sex Assigned [...] documented as of this encounter Care Teams Corn Grinder Relationship Specialty Start Date End Date Shayla Alford D.O. PCP - General Internal Medicine 05/22/[address] [phone] documented as of this encounter
--- OUTSIDE RECORDS SUMMARY | 2022-05-28 06:38 | XMS_ITS | Encounter Summary ---
:1945 Author Organization [facility] Address [address] [place] [address] Care Team Providers Name Role Phone Shayla Alford D.O. Primary Care Provider [phone] Encounter Details Date Type Department Care Team Description 08/27/2021 Hospital Encounter Department of Cirilo Bernal Neoplasm Of Laboratory Medicine Pato Mims Bladder Lateral Wall in [place], [address] ([facility]) [address] [place] [phone] Social History Tobacco Use Types Packs/Day [...] do you attend catholic or Never 2021 cheondoism services? Do [...] have completed or the highest Martin, MEd, PARACHUTE ACCESSORIES ATTACHER, CAYDEN) degree you have received? Sex Assigned [...] times a day. Use to [facility] [place] Sofya sensor 5 times daily and [...] injectionIndications: Diabetes Mellitus Type 2 Hyperglycemia ([facility]) lisinopriL Take 1 tablet by 0 [...] Results for this AEROBIC + SUSC, URINE OPERATIONS ANALYST Of Bladder Lateral procedure are in [place] ([facility]) the results section. URINALYSIS WITH Routine 08/27/2021 12:04 Malignant Neoplasm Re sults for this MICROSCOPIC AM OPERATIONS ANALYST Of Bladder Lateral procedure are in [place] ([facility]) the results section. documented in this encounter Results (ABNORMAL) Bacterial Culture, Aerobic + Susc, Urine (08/27/2021 8:25 AM OPERATIONS ANALYST) [facility] Time Signature Urine Culture Mixed 08/28/2021 [facility] surekha. (A) 10:47 AM OPERATIONS ANALYST Specimen Anatomical Collection Method Collection Time Receive d Time (Source) Location / / Volume Laterality Urine (Urine, 08/27/2021 8:25 AM 08/27/20 21 3:01 Midstream) OPERATIONS ANALYST PM OPERATIONS ANALYST Comment: Specimen Source Site: Urine Prasanna Bernal M.D. LAB MICROBIOLOGY - GENERAL O RDERABLES Performing Organization Address City/State/ZIP Code Phon e Number [facility]- [address] [place] [address] [place] [address] (ABNORMAL) Urinalysis with Microscopic: Urine, Midstream (08/27/2021 12:04 AM OPERATIONS ANALYST) [facility] Time Signature Source Urine, Urine, 08/27/2021 FB60 Midstream 8:49 AM OPERATIONS ANALYST Clarity Clear Clear 08/27/2021 FB60 9:13 AM OPERATIONS ANALYST Color Yellow 08/27/2021 FB60 9:13 AM OPERATIONS ANALYST Comment: ----REFERENCE VALUE---- Colorless Yellow Mitra Blood Trace (A) Negative 08/27/2021 9:13 AM OPERATIONS ANALYST FB60 Nitrite Negative Negative 08/27/2021 9:13 AM OPERATIONS ANALYST FB60 Leukocyte Esterase Small (A) Negative 08/27/2021 9:13 AM CS T FB60 Protein 30 (A) mg/dL 08/27/2021 9:13 AM OPERATIONS ANALYST FB60 Comment: ----REFERENCE VALUE---- Negative Trace Glucose >=1000 (A) Negative mg/dL 08/27/2021 9:13 AM OPERATIONS ANALYST F B60 Ketones, QI(U) Negative Negative mg/dL 08/27/2021 9:[address] FB60 Bilirubin Negative Negative 08/27/2021 9:13 AM OPERATIONS ANALYST FB60 pH 5.5 5.0 - 8.0 08/27/2021 9:13 AM OPERATIONS ANALYST FB60 Specific Levant 1.015 1.001 - 1.035 08/27/2021 9:13 AM OPERATIONS ANALYST FB60 Urobilinogen 0.2 0.2 - 1.0 mg/dL 08/27/2021 9:13 AM CS T FB60 White Blood Cells 4-10 (A) /hpf 08/27/2021 9:13 AM OPERATIONS ANALYST FB60 Comment: ----REFERENCE VALUE---- Males: 0-3 Females: 0-10 Unknown: 0-10 Red Blood Cells Occ-2 0 - 2 /hpf 08/27/2021 9:13 AM OPERATIONS ANALYST FB60 Squamous Cells 4-10 /hpf 08/27/2021 9:13 AM OPERATIONS ANALYST FB 60 Specimen Anatomical Collection Method Collection Time Receive d Time (Source) Location / / Volume Laterality Urine (Urine, 08/27/2021 12:04 08/27/2021 8:49 Midstream) AM OPERATIONS ANALYST AM OPERATIONS ANALYST Prasanna Bernal M.D. 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 PCP - General Internal Medicine 05/22/[address] [phone] documented as of this encounter
--- OUTSIDE RECORDS SUMMARY | 2022-05-28 06:38 | XMS_ITS | Encounter Summary ---
:1945 Author Organization [facility] Address [address] [place] [address] Care Team Providers Name Role Phone Shayla Alford D.O. Primary Care Provider [phone] Encounter Details Date Type Department Care Team Description 07/11/2021 Hospital Encounter Department of Bandar De Leon Preop erative Exam; Radiology in [place]. Chronic Obstructive Pulmonary Disease (H CC) [place], [place] [address] [place] [phone] Social History Tobacco Use [...] do you attend mormonism or Never 2021 yarsani services? Do you [...] have completed or the highest Martin, MEd, GRAIN UNLOADER MACHINE, CAYDEN) degree you have received? Sex [...] SOFYA) times a day. Use to [facility] scan Sofya sensor 5 times daily [...] PEN NEEDLE, DIABETIC Yani Fine 30 0 [facility] disposable needles. For use with Insulin Pens, 4 times daily SYRINGE-NEEDLE,INSULIN,0 0 .5 ML (INSULIN SYRINGE [facility]) traZODone (DESYREL) 100 Take 0.5 tablets (50 [...] as of this encounter Care Teams Construction Accountant Relationship Specialty Start Date End Date Shayla Alford D.O. PCP - General Internal Medicine 05/22/[address] [phone] documented as of this encounter
--- OUTSIDE RECORDS SUMMARY | 2022-05-28 06:38 | XMS_ITS | Encounter Summary ---
:1945 Author Organization [facility] Address [address] [place] [address] Care Team Providers Name Role Phone Shayla Alford D.O. Primary Care Provider [phone] Reason for Visit Reason Comments Gouty arthritis Encounter Details Date Type Department Care Team Description 09/02/2021 - Emergency [facility] Gout Arthritis (Primary 09/03/[address] [place]) [place] [phone] Social History Tobacco Use Types Packs/Day [...] do you attend yarsanism or Never 2021 anglican services? Do you [...] have completed or the highest Martin, MEd, PRINTED CIRCUIT BOARDS BEVELER, CAYDEN) degree you have received? Sex Assigned [...] (FREESTYLE SOFYA) times a day. Use to [facility] scan Sofya sensor [...] NEEDLE, DIABETIC Yani Fine 30 0 [facility] [place] needles. For use with Insulin Pens, 4 times daily SYRINGE-NEEDLE,INSULIN,0 0 .5 ML (INSULIN [place]E [facility] traZODone (DESYREL) 100 Take 0.5 tablets [...] documented as of this encounter Care Teams Technician Semiconductor Development Relationship Specialty Start Date End Date Shayla Alford D.O. PCP - General Internal Medicine 05/22/[address] [place] [phone] documented as of this encounter
--- OUTSIDE RECORDS SUMMARY | 2022-05-28 06:38 | XMS_ITS | Encounter Summary ---
:1945 Author Organization [facility] Address [address] [place] [address] Care Team Providers Name Role Phone Shayla Alford D.O. Primary Care Provider [phone] Reason for Visit Reason Comments Nurse Visit BCG Bladder Cancer Appointment Request (Routine) - Closed Specialty Diagnoses / Procedures Referred By Contact Refer red To Contact Urology Referral ID Status Reason Start Date Expiration Date Visits Requ ested Visits Authorized [id number] Closed 07/23/2021 07/23/2022 1 1 Encounter Details Date Type Department Care Team Description 08/22/2021 Nurse Only Department of Urology Lea Morin Nu rse Visit (BCG); [place] Bladder Cancer [address] [place] [phone] [place], [place] [phone] Social History Tobacco Use Types Packs/Day Years [...] do you attend pentecostalism or Never 2021 alevism services? Do you [...] have completed or the highest Martin, MEd, BIOFUELS OPERATIONS MANAGER, CAYDEN) degree you have received? Sex Assigned at Date Recorded Male 05/21/2018 2:34 PM CDT documented as of this encounter Last Filed Vital Signs Vital Sign Reading Time Taken Comments Blood Pressure - - Pulse - - Temperature 36.6 ??C (97.8 ??F) 08/22/2021 10:07 AM SCOURING TRAIN OPERATOR Respiratory Rate - - Oxygen Saturation [...] the next BCG treatment. Lea Morin R.N. RING TRAIN OPERATOR documented in this encounter Plan of [...] 0.9% 50 mL Given 08/22/2021 10:10 AM SCOURING TRAIN OPERATOR 50 mg bladder instillation (JUANY BCG) [...] documented as of this encounter Care Teams Mental Health Counselor Relationship Specialty Start Date End Date Shayla Alford D.O. PCP - General Internal Medicine 05/22/[address] [phone] documented as of this encounter
--- OUTSIDE RECORDS SUMMARY | 2022-05-28 06:38 | XMS_ITS | Encounter Summary ---
:1945 Author Organization [facility] Address [address] [place] [address] Care Team Providers Name Role Phone Shayla Alford D.O. Primary Care Provider [phone] Reason for Referral Outpatient (Routine) - Closed Specialty Diagnoses / Procedures Referred By Contact Refer red To Contact [facility] ARMAAN Alford SE, D.O. [address] [place] [phone] Referral ID Status Reason Start Date Expiration Date Visits Requ ested Visits Authorized [id number] Closed 07/31/2021 07/31/2022 1 1 Scheduling Instructions Please schedule one hour to address preo p colonoscopy , diabetes , bladder cancer , and asthma Reason for Visit Reason Comments Heart Failure CKD, Diabetes Mellitus Outpatient (Routine) - Closed Specialty Diagnoses / Procedures Referred By Contact Refer red To Contact [facility] ARMAAN Alford SE, D.O. [address] [place] [phone] Referral ID Status Reason Start Date Expiration Date Visits Requ ested Visits Authorized [id number] Closed 06/19/2021 06/19/2022 1 1 Encounter Details Date Type Department Care Team Description 07/31/2021 Office Visit Department of Internal Selvin Alford ypertension Essential Primary (Primary Dx); Medicine [place] . 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 Do you [...] completed or the highest Martin, MEd, CLINICAL THERAPIST, CAYDEN) degree you have received? Sex [...] him today. [facility] [place] [facility] pattern grader. He states that his glucose this morning [...] The patient has a scheduled trip to [address] [place] [address]. We discussed the importance of following his [...] him today. He is followed [place] the [place] where he sees an pattern grader. He states that his glucose this morning [...] patient has a scheduled trip to [facility]. We discussed the importance of following [...] by: Shayla Alford D.O. 08/07/21 7:17 PM METAL ROASTER L ROASTER documented in this encounter Plan of Treatment Scheduled Orders Name Type Priority Associated Diagnoses Order S chedule Hemoglobin A1c Lab Routine Diabetes Mellitus Type 2 W ith Expected: 10/31/2021 Diabetic Chronic Kidney (Brenda roximate), Expires: Disease (HCC) 07/31/2022 Scheduled Referrals Name Type Priority [facility] Diagnoses [facility] Referral Routine Ex [...] documented as of this encounter Care Teams Cruller Maker Relationship Specialty Start Date End Date Shayla Alford D.O. PCP - General Internal Medicine 05/22/[address] [phone] documented as of this encounter
--- OUTSIDE RECORDS SUMMARY | 2022-05-28 06:38 | XMS_ITS | Encounter Summary ---
:1945 Author Organization [facility] Address [address] [place] [address] Care Team Providers Name Role Phone Shayla Alford D.O. Primary Care Provider [phone] Reason for Visit Reason Comments Communication Encounter Details Date Type Department Care Team Description 08/15/2021 Clinical Communication Department of Urology Lea Morin Communication in [facility] C, R.N. [address] [place] [phone] Social History Tobacco Use [...] you attend latter day or Never 2021 pentecostalism services? Do you [...] have completed or the highest Martin, MEd, PRESSURE SUPERVISOR, CAYDEN) degree you have received? Sex Assigned at Date Recorded Male 05/21/2018 2:34 PM CDT documented as of this encounter Miscellaneous Notes Telephone Encounter - Jacquie Hamilton, L.P.N. - 08/16/2021 9:12 AM FLAG SIGNALER SUBJECTIVE CHIEF COMPLAINT / REASON FOR CALL Communication Information Discussed Patient contacted with advisement from provider given per Dr Reid direction. Patient requested appt to discuss left breast tenderness PLAN Disposition/Recommendation: patient transferred to appt desk to schedule appt Information/Education: patient/caller able to teach back Caller agreeable to plan of care: yes The following references were used: provider dr reid SIGNALER Telephone Encounter - Shayla Alford D.O. - 08/15/2021 4:22 PM FLAG SIGNALER Our pharmacist Zoya reviewed the patients medication list and did not find that his medications are causing the symptoms. At this point, I am not sure what is the source of the pain. We are happy to seehim in the clinic for further evaluation. Electronically signed by: Shayla Alford D.O. 08/15/21 4:23 PM FLAG SIGNALER SIGNALER Telephone Encounter - Lea Morin R.N. - 08/15/2021 3:08 PM CST Will forward to PCP to review and advise back to patient. Thank you! SIGNALER Telephone Encounter - Lea Morin R.N. - [...] and advise, if need, send to PCP. SIGNALER documented in this encounter Plan of Treatment Not on filedocumented as of this encounter Visit Diagnoses Not on filedocumented in this encounter Additional Health Concerns Assessment Noted Time PHQ-9 Depression Total Score: 18 04/28/2018 11:27 AM C DT documented as of this encounter Care Teams Plant Controls Specialist Relationship Specialty Start Date End Date Shayla Alford D.O. PCP - General Internal Medicine 05/22/[address] [phone] documented as of this encounter
--- OUTSIDE RECORDS SUMMARY | 2022-05-28 06:39 | XMS_ITS | Encounter Summary ---
:1945 Author Organization [facility] Address [address] [place] [address] Care Team Providers Name Role Phone Shayla Alford D.O. 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 [facility] [place] [facility] Procedures CT Urogram without and with IV Contrast [address] [place] [phone] Referral ID Status Reason Start Date Expiration Date Visits Requ ested Visits Authorized [id number] Closed 07/02/2021 07/02/2022 1 1 Encounter Details Date Type Department Care Team Description 07/10/2021 Hospital Encounter Department of Cirilo Bernal Neoplasm Of Radiology in Pato Mims Bladder Posterior [place], [place] [address] ([facility]) [address] [place] [phone] Social History Tobacco Use Types Packs/Day Years [...] do you attend buddhist or Never 2021 rastafari services? Do you [...] completed or the highest Martin, MEd, ELECTRIC ENGINE MECHANIC, CAYDEN) degree you have received? Sex [...] (FREESTYLE SOFYA) times a day. Use to [facility] [place] Sofya sensor 5 times daily and [...] FINDINGS: Right system: Right kidney and ureter ebnson ve no stones. No hydronephrosis. No suspicious [...] documented as of this encounter Care Teams Dietary Aide Cook Relationship Specialty Start Date End Date Shayla Alford D.O. PCP - General Internal Medicine 05/22/[address] [phone] documented as of this encounter
--- OUTSIDE RECORDS SUMMARY | 2022-05-28 06:39 | XMS_ITS | Encounter Summary ---
:1945 Author Organization [facility] Address [address] [place] [address] Care Team Providers Name Role Phone Shayla Alford D.O. Primary Care Provider Reason for Visit Reason Comments Pre-op Exam cystoscopy; 07/18/21 Appointment Request (Routine) - Closed Specialty Diagnoses / Procedures Referred By Contact Refer red To Contact Community Internal Medicine Referral ID Status Reason Start Date Expiration Date Visits Requ ested Visits Authorized [id number] Closed 07/10/2021 07/10/2022 1 1 Encounter Details Date Type Department Care Team Description 07/11/2021 Office Visit Department of Bandar De Leon Preoperativ e Exam (Primary Dx); Internal Medicine in S, P.A.-C. 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 Sex Assigned [...] scheduled for 07/18/[address] Bernal at [facility]. Cardiac: Chest pain or shortness [...] Master's degree (e.g., MA, MS, Martin, MEd, STUNNER ANIMAL, CAYDEN) Occupational History Employer: RETIRED Tobacco Use [...] than three times a week ??? Attends Cheondoism Services: Never ??? Active Member of [employer] [...] (HCC) 10/16/2009 Pulmonary symptomatology, diagnosis at the [facility] unclear, but probably some degree of COPD. [...] INSERTION INTRAOCULAR LENS Left 04/2008 At the [facility] ??? LASER OF PROSTATE W/ GREEN LIGHT PVP 08/28/2016 Greenlight photoselective vaporization of the prostate and cystoscopy with bladder biopsy and fulguration of a 2cm area; 08/28/[address] Prasanna Bernal at the [facility]. ??? TONSILLECTOMY ??? TONSILLECTOMY 1967 [...] , Rfl: ??? SYRINGE-NEEDLE,INSULIN,0.5 ML (INSULIN SYRINGE [facility]), , Disp: , Rfl: ??? torsemide (DEMADEX) 20 mg tablet, Take 2 tablets (40 mg total) by mouth every morning before breakfast., Disp: 180 tablet, Rfl: 3 ??? traZODone (DESYREL) 100 mg tablet, Take 0.5 tablets (50 mg total) by mouth at bedtime as needed for sleep., Disp: 30 tablet, Rfl: 1 ??? flash glucose scanning reader (FREESTYLE SOFYA) [facility], 1 each 5 (five) times a day. [...] without Differential; Future 4. Atherosclerotic Heart Disease [place] Coronary Artery With [...] surgery I would recommend re-evaluation with [facility] 8. Hypertension Essential Primary [...] advised to schedule follow-up appointment with [facility] at his earliest convenience. All questions have been answered and patient is in agreement with this plan. Torsten De Leon P.A.-C. 07/11/21 documented in this encounter Plan of Treatment Not on filedocumented as of this encounter Results (ABNORMAL) CBC without Differential (07/11/2021 10:53 AM CDT) [facility] gist Method Time Signature Hemoglobin 12.1 [...] Organization Address City/State/ZIP Code Phon e Number [facility]- [address] [place] [address] [facility] [place] [address] System in [place] [address] (ABNORMAL) Basic Metabolic Panel [...] >=60 mL/min/BSA 07/11/2021 2:50 PM CDT [facility] [place] Comment: ----ADDITIONAL INFORMATION---- Estimated GFR calculated using the 2009 CKD_EPI creatinine equation. eGFR Non-Black/ 36 (L) >=60 mL/min/BSA 07/11/2021 2:50 PM CDT [facility] [place] Comment: ----ADDITIONAL INFORMATION---- Estimated GFR calculated using [...] Organization Address City/State/ZIP Code Phon e Number [facility]- [address] [place] [address] [place] [address] System in [place] [address] (ABNORMAL) Hemoglobin A1c (07/11/2021 10:53 [...] Organization Address City/State/ZIP Code Phon e Number [facility]- [address] [place] [address] [facility] [place] [address] System in [place] [address] [facility] DX Chest AP or PA and [...] Localized Wi th Obstruction Atherosclerotic Heart Disease [place] Cor onary Artery With Other Forms Angina [...] documented as of this encounter Care Teams Blast Hole Driller Relationship Specialty Start Date End Date Shayla Alford D.O. PCP - General Internal Medicine 05/22/20 [address] [place] [phone] documented as of this encounter
--- OUTSIDE RECORDS SUMMARY | 2022-05-28 06:39 | XMS_ITS | Encounter Summary ---
:1945 Author Organization [facility] Address [address] [place] [address] Care Team Providers Name Role Phone Shayla Alford D.O. Primary Care Provider [phone] Reason for Visit Reason Onset Date Comments Hypertension 07/05/2021 Graduation 07/05/2021 Encounter Details Date Type Department Care Team Description 07/05/2021 Remote Monitoring Remote Patient Kanwal Bernardo rtension; Monitoring L, M.S.N., R.N. Graduation [facility] [address] [place] [phone] Social History Tobacco Use Types Packs/Day Years [...] do you attend yarsani or Never 2021 confucianist services? Do you [...] have completed or the highest Martin, MEd, PILOT PLANT OPERATOR, CAYDEN) degree you have received? [...] documented as of this encounter Care Teams Armature Inspector Relationship Specialty Start Date End Date Shayla Alfrod D.O. PCP - General Internal Medicine 05/22/[address] [phone] documented as of this encounter
--- OUTSIDE RECORDS SUMMARY | 2022-05-28 06:39 | XMS_ITS | Encounter Summary ---
:1945 Author Organization [facility] Address [address] [place] [address] Care Team Providers Name Role Phone Shayla Alford D.O. Primary Care Provider [phone] Reason for Visit Reason Onset Date Comments Complex Care Coordination 05/29/2021April Billing Encounter Details Date Type Department Care Team Description 05/29/2021 Remote Monitoring Remote Patient BatistaSushma Complex Care Monitoring [address] [facility] Coordination (April [facility] [place], [place] Billing ) [address] [facility] [address] [place], [place] [phone] (Work) Social History Tobacco Use Types Packs/Day [...] do you attend alevism or Never 2021 spiritism services? Do you [...] have completed or the highest Martin, MEd, HYBRID TECHNOLOGIST, CAYDEN) degree you have received? Sex [...] documented as of this encounter Care Teams Electrotyper Helper Relationship Specialty Start Date End Date Shayla Alford D.O. PCP - General Internal Medicine 05/22/[address] [phone] documented as of this encounter
--- OUTSIDE RECORDS SUMMARY | 2022-05-28 06:39 | XMS_ITS | Encounter Summary ---
:[address] [facility] Address [address] [place] [address] Care Team Providers Name Role Phone Shayla Alford D.O. Primary Care Provider [phone] Encounter Details Date Type Department Care Team [...] do you attend zoroastrian or Never 2021 quaker services? Do you [...] have completed or the highest Martin, MEd, STENOCAPTIONER, CAYDEN) degree you have received? Sex Assigned [...] documented as of this encounter Care Teams Munitions Worker Relationship Specialty Start Date End Date Shayla Alford D.O. PCP - General Internal Medicine 05/22/[address] [place] [address] documented as of this encounter
--- OUTSIDE RECORDS SUMMARY | 2022-05-28 06:39 | XMS_ITS | Encounter Summary ---
:1945 Author Organization [facility] Address [address] [place] [address] Care Team Providers Name Role Phone Shayla Alford D.O. Primary Care Provider [phone] Reason for Visit Reason Onset Date Comments Hypertension 06/06/2021 Symptom Assessment 06/06/2021 Encounter Details Date Type Department Care Team Description 06/06/2021 Remote Monitoring Remote Patient Prateek Padilla; Monitoring Donna Duque R.N. Symptom Assessment [place] [address] [address] [facility] (Work) [place] [address] Social History Tobacco Use Types Packs/Day Years [...] do you attend samaritan or Never 2021 synagogue services? Do you [...] have completed or the highest Martin, MEd, JAVA TECHNICAL ARCHITECT, CAYDEN) degree you have received? Sex [...] documented as of this encounter Care Teams Sample Box Maker Relationship Specialty Start Date End Date Shayla Alford D.O. PCP - General Internal Medicine 05/22/20 [address] [place] [phone] documented as of this encounter
--- OUTSIDE RECORDS SUMMARY | 2022-05-28 06:39 | XMS_ITS | Encounter Summary ---
:1945 Author Organization [facility] Address [address] [place] [address] Care Team Providers Name Role Phone Shayla Alford D.O. Primary Care Provider [phone] Reason for Visit Reason Onset Date Comments Complex Care Coordination 07/01/2021June Esha santillan Encounter Details Date Type Department Care Team Description 07/01/2021 Remote Monitoring Remote Patient BatistaSushma Complex Care Monitoring [address] [facility] Coordination (June [facility] 5 [place], [place] Billing ) [address] [facility] [address] [place], [place] [phone] (Work) Social History Tobacco Use Types Packs/Day [...] do you attend religious or Never 2021 caodaism services? Do you [...] have completed or the highest Martin, MEd, PROJECT SUPERINTENDENT, CAYDEN) degree you have received? Sex [...] documented as of this encounter Care Teams Exterminator Helper Relationship Specialty Start Date End Date Shayla Alford D.O. PCP - General Internal Medicine 05/22/[address] [phone] documented as of this encounter
--- OUTSIDE RECORDS SUMMARY | 2022-05-28 06:39 | XMS_ITS | Encounter Summary ---
:1945 Author Organization [facility] Address [address] [place] [address] Care Team Providers Name Role Phone Shayla Alford D.O. Primary Care Provider [phone] Reason for Visit Reason Onset Date Comments Hypertension 06/11/2021 Symptom Assessment 06/11/2021 Encounter Details Date Type Department Care Team Description 06/11/2021 Remote Monitoring Remote Patient Prateek Padilla; Monitoring Donna Duque R.N. Symptom Assessment [place] [address] [address] [facility] (Work) [place] [address] Social History Tobacco Use Types Packs/Day Years [...] do you attend latter-day or Never 2021 mormon services? Do you [...] completed or the highest Martin, MEd, CONSERVATION COORDINATOR, CAYDEN) degree you have received? Sex [...] as of this encounter Care Teams Medical Photographer Relationship Specialty Start Date End Date Shayla Alford D.O. PCP - General Internal Medicine 05/22/[address] [phone] documented as of this encounter
--- OUTSIDE RECORDS SUMMARY | 2022-05-28 06:39 | XMS_ITS | Encounter Summary ---
:1945 Author Organization [facility] Address [address] [place] [address] Care Team Providers Name Role Phone Shayla Alford D.O. Primary Care Provider [phone] Reason for Referral Outpatient (Routine) - Closed Specialty Diagnoses / Procedures Referred By Contact Refer red To Contact [facility] Internal ARMAAN Alford SE [place] [address] [place] [phone] Referral ID Status Reason Start Date Expiration Date Visits Requ ested Visits Authorized [id number] Closed 06/19/2021 06/19/2022 1 1 Scheduling Instructions Schedule one hour for preop Colonoscopy plus follow up CHF, CKD , diabetes , and HTN Reason for Visit Reason Comments Follow-up Outpatient (Routine) - Closed Specialty Diagnoses / Procedures Referred By Contact Refer red To Contact [facility] Internal ARMAAN Alford SE DMauroOMauro [address] [place] [phone] Referral ID Status Reason Start Date Expiration Date Visits Requ ested Visits Authorized [id number] Closed 05/23/2021 05/23/2022 1 1 Encounter Details Date Type Department Care Team Description 06/19/2021 Office Visit Department of [place] Diabetes Me coxitus Type 2 Hyperglycemia (HCC) (Primary Dx); Internal Medicine in Shayla D. O. Hypertension Essential Primary; [place], [place] [address] Chronic Systolic (Congestive) Heart Fail ure (HCC); [address] [place], [place] Chronic Kidney Disease (CKD) , Stage 3b Glomerular Filtration Rate (GFR) 30 To 44 (HCC); [place] [address] Hypothyroidism; [phone] Hyperlipidemia Social History Tobacco Use [...] do you attend advent or Never 2021 restorationist services? Do you [...] have completed or the highest Martin, Sirena, CLINICAL STUDY MANAGER, CAYDEN) degree you have received? Sex [...] him today. [place] where he sees an movie machine operator. He states that his glucose this morning [...] patient has a scheduled trip to [facility]. We discussed the importance of following [...] Rate (GFR) 30 To 44 ([facility]) #5 Hypothyroidism #6 Hyperlipidemia In regards to type 2 diabetes, the patient states that his blood sugar levels have improved. Unfortunately, he forgot to bring his meter with him today. He is followed [place] the [place] where he sees an movie machine operator. He states that his glucose this morning [...] The patient has a scheduled trip to [address] [place] [address]. We discussed the importance of following his [...] eGFR-Black/Afri 36 (L) >=60 07/30/2021 [facility] can [place] mL/min/BSA 10:24 AM CDT Comment: ----ADDITIONAL INFORMATION---- Estimated GFR calculated using the 2009 CKD_EPI creatinine equation. eGFR Non-Black/ 31 (L) >=60 mL/min/BSA 07/30/2021 10:24 AM CDT [facility] [place]i Comment: ----ADDITIONAL INFORMATION---- Estimated GFR calculated using [...] Organization Address City/State/ZIP Code Phon e Number [facility]- [address] [place] [address] [place] [address] System in [place] [address] (ABNORMAL) Hemoglobin A1c [...] Phon e Number [facility]- [address] [place] [address] [place] [address] System in [place] 2[address] [facility] documented in this encounter Visit [...] documented as of this encounter Care Teams Lap Regulator Relationship Specialty Start Date End Date Shayla Alford D.O. PCP - General Internal Medicine 05/22/202199 [place] [address] documented as of this encounter
--- OUTSIDE RECORDS SUMMARY | 2022-05-28 06:39 | XMS_ITS | Encounter Summary ---
:1945 Author Organization [facility] Address [address] [place] [address] Care Team Providers Name Role Phone Shayla Alford D.O. Primary Care Provider [phone] Reason for Referral Outpatient (Routine) - Closed Specialty Diagnoses / Procedures Referred By Contact Refer red To Contact [facility] Internal ARMAAN Alford SE, D.O. [address] [phone] Referral ID Status Reason Start Date Expiration Date Visits Requ ested Visits Authorized [id number] Closed 05/23/2021 05/23/2022 1 1 Scheduling Instructions May use same slot to allow patient to sc hedule at 9 AM Diabetes follow up Reason for Visit Reason Comments Follow-up DM, CKD Outpatient (Routine) - Closed Specialty Diagnoses / Procedures Referred By Contact Madelaine castillo To Contact [facility] Internal ARMAAN Alford SE, D.O. [address] [place] [phone] Referral ID Status Reason Start Date Expiration Date Visits Requ ested Visits Authorized [id number] Closed 04/19/2021 04/19/2022 1 1 Encounter Details Date Type Department Care Team Description 05/23/2021 Office Visit Department of Internal Rocío Alvarado Mellitus Type 2 With Diabetic Neuropathy (HCC) (Primary Dx); Medicine in [place], Shayla D .O. Diabetes Mellitus Type 2 Hyperglycemia ( HCC); [place] [address] Asthma Extrinsic Moderate (HCC); [address] [place], [place] Hypertension Essential Prima ry; [place] [address] Chronic Kidney Disease (CKD), Stage 3b G lomerular Filtration Rate (GFR) 30 To 44 ([facility]) [address] Social History Tobacco Use Types [...] you attend oriental orthodox or Never 2021 denominational services? Do you [...] have completed or the highest Martin, MEd, EVS ATTENDANT, CAYDEN) degree you have received? Sex [...] their behalf by Sarai Cason, a trained diploma medical assistant. The creation of this recordis based on the scribe remotely listening to the visit and the provider's statements to them. This do cument has been checked and approved by the attending provider. Time spent 33 minutes Electronically signed by: Shayla Alford D.O. 05/23/21 5:22 PM CDT documented in this encounter Plan of Treatment Scheduled Referrals Name Type Priority Associated Diagnoses Order [facility] Internal Outpatient Referral Routine Ex [...] documented as of this encounter Care Teams Phlebotomist Medical Lab Assistant Relationship Specialty Start Date End Date Shayla Alford D.O. PCP - General Internal Medicine 05/22/[address] [phone] documented as of this encounter
--- OUTSIDE RECORDS SUMMARY | 2022-05-28 06:39 | XMS_ITS | Encounter Summary ---
:1945 Author Organization [facility] Address [address] [place] [address] Care Team Providers Name Role Phone Shayla Alford D.O. Primary Care Provider Reason for Referral Outpatient (Routine) - Closed Specialty Diagnoses / Procedures Referred By Contact Refer anna To Contact Urology Prasanna Bernal M.D. 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 [facility] Region Procedures CT Urogram without and with IV Contrast [address] [place] [address] Referral ID Status Reason Start Date Expiration Date Visits Requ ested Visits Authorized [id number] Closed 07/02/2021 07/02/2022 1 1 Reason for Visit Outpatient (Routine) - Closed Specialty Diagnoses / Procedures Referred By Contact Refer red To Contact Diagnoses Personal History Of Malignant Neoplasm Of Bladder Prasanna Bernal M.D. [facility] Region Procedures Cystoscopy (specific provider) [address] [place] [phone] Referral ID Status Reason Start Date Expiration Date Visits Requ ested Visits Authorized [id number] Closed 06/12/2020 06/12/2021 1 1 Encounter Details Date Type Department Care Team Description 07/02/2021 Procedure visit Department of Urology Prasanna Bernal, Malignant Neoplasm Of in [place] Bladder Posterior Wall [place] [address] [facility] [address] [place] [phone] Social History Tobacco Use Types Packs/Day Years [...] do you attend sikhism or Never 2021 congregation services? Do you [...] have completed or the highest Martin, MEd, SCIENTIST/ENGINEER, CAYDEN) degree you have received? Sex Assigned [...] screening be ordered. He will need a road train driver. He will need to be NPO. Electronically signed by: Prasanna Bernal M.D. 07/02/21 9:41 AM CDT documented in this encounter Plan of Treatment Scheduled Referrals Name Type Priority Associated Diagnoses Order [facility] Urology office Outpatient Referral Routine Expect ed: visit (clinic) 07/23/2021 (Approximate), Expires: 07/02/2024 documented as of this encounter Results SARS Coronavirus-2 RNA, V Asymptomatic (07/15/2021 8:56 AM CDT) [facility] Method Time Signature SARS-CoV-2 Swab, [...] pe rformed using the Aptima SARS-CoV-2 assay ([employer] on the [employer] tem under emergency use authorization (EUA) by the U.S. Food and Drug Administ ration. Fact sheets for this EUA assay can be fo und at the following links: For Healthcare Providers: https://www.fd a.gov/media/380500/download For Patients: https://www.fda.gov/media/ 946850/download Specimen Anatomical Collection Method Collection Time Receive d Time (Source) Location / / Volume Laterality Varies 07/15/2021 8:56 AM 5:19 (Nasopharynx) CDT PM CDT Prasanna Bernal M.D. LAB MICROBIOLOGY - GENERAL O RDERABLES Performing Organization Address City/State/ZIP Code Phon e Number [facility]- [address] [place] [address] [place] [address] Urogram without and with IV [...] City/State/ZIP Code Phon e Number [facility]- [facility] [place] [address] [facility] [place] [address] [address] (ABNORMAL) Creatinine with Estimated GFR (07/02/2021 10:24 AM CDT) P athologist Signature Creatinine 1.51 (H) 0.74 - 1.35 07/02/2021 [facility] mg/dL 11:17 AM CDT Comment: Testing performed on serum eGFR-Black/ 51 (L) >=60 mL/min/BSA 12/2020 11:17 AM CDT [place] Comment: ----ADDITIONAL INFORMATION---- Estimated GFR calculated using the 2009 CKD_EPI creatinine equation. eGFR Non-Black/ 44 (L) >=60 mL/min/BSA 07/02/2021 11:17 AM CDT [facility] [place] Comment: ----ADDITIONAL INFORMATION---- Estimated GFR calculated using the 2009 CKD_EPI creatinine equation. Specimen Anatomical Collection Method Collection Time Receive d Time (Source) Location / / Volume Laterality Blood (Blood, 07/02/2021 10:24 07/02/2021 Venous) AM CDT 10:25 AM CDT Prasanna Bernal M.D. 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 PCP - General Internal Medicine 05/22/[address] [phone] documented as of this encounter
--- OUTSIDE RECORDS SUMMARY | 2022-05-28 06:39 | XMS_ITS | Encounter Summary ---
:1945 Author Organization [facility] Address [address] [place] [address] Care Team Providers Name Role Phone Shayla Alford D.O. Primary Care Provider [phone] Encounter Details Date Type Department Care Team Description 05/24/2021 Clinical Communication Department of Internal Andrei Dejesus Medicine in [place], [place], [place].O Mauro [place] [address] [place] [phone] Social History Tobacco Use Types Packs/Day Years [...] do you attend pentecostalism or Never 2021 faith services? Do you [...] completed or the highest Martin, MEd, MANAGER SUSTAINABILITY, CAYDEN) degree you have received? Sex Assigned at Date Recorded Male 05/21/2018 2:34 PM CDT documented as of this encounter Miscellaneous Notes Telephone Encounter - Yari Lee - 05/24/2021 11:16 AM CDT Faxed visit note to [facility] per patient request for discontinuation of oxygen. documented in this encounter Plan of Treatment Not on filedocumented as of this encounter Visit Diagnoses Not on filedocumented in this encounter Additional Health Concerns Assessment Noted Time PHQ-9 Depression Total Score: 18 04/28/2018 11:27 AM C DT documented as of this encounter Care Teams Appraiser Boats And Marine Relationship Specialty Start Date End Date Shayla Alford D.O. PCP - General Internal Medicine 05/22/20 [address] [place] [phone] documented as of this encounter
--- OUTSIDE RECORDS SUMMARY | 2022-05-28 06:39 | XMS_ITS | Encounter Summary ---
:1945 Author Organization [facility] Address [address] [place] [address] Care Team Providers Name Role Phone Shayla Alford D.O. Primary Care Provider [phone] Encounter Details Date Type Department Care Team Description 07/09/2021 Clinical Communication Department of Internal Andrei Dejesus Medicine in [place], [place], [place].O Mauro [place] [address] [place] [phone] Social History Tobacco Use Types Packs/Day Years [...] do you attend scientologist or Never 2021 buddhist services? Do you [...] completed or the highest Martin, MEd, HEALTH SERVICES MANAGER, CAYDEN) degree you have received? [...] them and we will fax them to [phone], as not sure why they are not [...] to call in two prescriptions to the [facility]. They are for Jardiance 25mg [...] as of this encounter Care Teams It Audit Manager Relationship Specialty Start Date End Date Shayla Alford D.O. PCP - General Internal Medicine 05/22/[address] [phone] documented as of this encounter
--- OUTSIDE RECORDS SUMMARY | 2022-05-28 06:39 | XMS_ITS | Encounter Summary ---
:1945 Author Organization [facility] Address [address] [place] [address] Care Team Providers Name Role Phone Dejah Alford D.O. Primary Care Provider [phone] Reason for Visit Reason Onset Date Comments Hypertension 05/25/2021 Follow-up 05/25/2021 Encounter Details Date Type Department Care Team Description 05/25/2021 Remote Monitoring Remote Patient Prateek Padilla; Monitoring Donna Duque R.N. Follow-up [place] [place] [address] [address] [facility] ([place]) [place] [address] Social History Tobacco Use Types Packs/Day Years [...] do you attend faith or Never 2021 restorationism services? Do you [...] have completed or the highest Martin, MEd, NEWSPAPER OR PERIODICAL EDITOR, CAYDEN) degree you have received? Sex Assigned [...] documented as of this encounter Care Teams Sheet Rock Applicator Relationship Specialty Start Date End Date Dejah Alford D.O. PCP - General Internal Medicine 05/22/[address] [address] documented as of this encounter
--- OUTSIDE RECORDS SUMMARY | 2022-05-28 06:39 | XMS_ITS | Encounter Summary ---
:1945 Author Organization [facility] Address [address] [place] [address] Care Team Providers Name Role Phone Shayla Alford D.O. Primary Care Provider [phone] Reason for Visit Reason Comments SURG DATE Needs pre-op note! Encounter Details Date Type Department Care Team Description 07/02/2021 Clinical Communication Department of Dolores, SURG DATE; Needs Urology in [place] Mims pre-op note! [place], [place] [address] [place] [phone] Social History Tobacco Use Types Packs/Day [...] do you attend amish or Never 2021 rastafari services? Do you [...] have completed or the highest Martin, MEd, WAFER CLEANER, CAYDEN) degree you have received? Sex [...] 07/09/2021 2:[address] Reid, [facility] is looking for your notes on [...] documented as of this encounter Care Teams Dentures Lab Technician Relationship Specialty Start Date End Date Shayla Alford D.O. PCP - General Internal Medicine 05/22/20 [address] [place] [address] documented as of this encounter
--- OUTSIDE RECORDS SUMMARY | 2022-05-28 06:39 | XMS_ITS | Encounter Summary ---
:1945 Author Organization [facility] Address [address] [place] [address] Care Team Providers Name Role Phone Shayla Alford D.O. Primary Care Provider [phone] Encounter Details Date Type Department Care Team Description 07/09/2021 Hospital Encounter Department of Cirilo Bernal Neoplasm Of Laboratory Medicine Pato Mims Bladder Posterior in [place], [address] ([facility]) [address] [place] [phone] Social History Tobacco Use [...] do you attend hindu or Never 2021 quaker services? Do you [...] have completed or the highest Martin, MEd, CREDIT PRODUCT ANALYST, CAYDEN) degree you have received? Sex [...] NEEDLE, DIABETIC Yani Fine 30 0 [facility] disposable needles. 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 PCP - General Internal Medicine 05/22/[address] [place] [phone] documented as of this encounter
--- OUTSIDE RECORDS SUMMARY | 2022-05-28 06:39 | XMS_ITS | Encounter Summary ---
:1945 Author Organization [facility] Address [address] [place] [address] Care Team Providers Name Role Phone Shayla Alford D.O. Primary Care Provider [phone] Encounter Details Date Type Department Care Team Description 07/10/2021 Orders Only Department of Internal Rocío Medicine in [place], [place], [place].Jason Wade [place] [address] [place] [phone] (Wo rk) Social History Tobacco Use Types [...] do you attend orthodoxy or Never 2021 taoist services? Do you [...] have completed or the highest Martin, MEd, COOLING SYSTEM OPERATOR, CAYDEN) degree you have received? Sex Assigned at Date Recorded Male 05/21/2018 2:34 PM CDT documented as of this encounter Plan of Treatment Not on filedocumented as of this encounter Visit Diagnoses Not on filedocumented in this encounter Additional Health Concerns Assessment Noted Time PHQ-9 Depression Total Score: 18 04/28/2018 11:27 AM C DT documented as of this encounter Care Teams Deputy Sheriff Chief Relationship Specialty Start Date End Date Shayla Alford D.O. PCP - General Internal Medicine 05/22/[address] [phone] documented as of this encounter
--- OUTSIDE RECORDS SUMMARY | 2022-05-28 06:39 | XMS_ITS | Encounter Summary ---
:1945 Author Organization [facility] Address [address] [place] [address] Care Team Providers Name Role Phone Shayla Alford D.O. Primary Care Provider [phone] Encounter Details Date Type Department Care Team Description 05/22/2021 Hospital Encounter Department of Alexys Diabete s Mellitus Type Laboratory Medicine Shayla queen, 2 With Coleman navarro in [place] Nephropathy [place] [address] Hyperglycemic (HCC) [address] [place] [phone] Social History Tobacco Use [...] do you attend yarsani or Never 2021 protestant services? Do you [...] have completed or the highest Martin, MEd, LUNCHROOM AIDE, CAYDEN) degree you have received? Sex [...] PEN NEEDLE, DIABETIC Yani Fine 30 0 [facility] disposable needles. For use with Insulin Pens, 4 times daily SYRINGE-NEEDLE,INSULIN,0 0 .5 ML (INSULIN SYRINGE [facility]) budesonide-formoteroL Inhale 2 puffs daily 0 10/0 [...] e Number 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 PCP - General Internal Medicine 05/22/20 [address] [place] [phone] documented as of this encounter
--- OUTSIDE RECORDS SUMMARY | 2022-05-28 06:39 | XMS_ITS | Encounter Summary ---
:1945 Author Organization [facility] Address [address] [place] [address] Care Team Providers Name Role Phone Shayla Alford D.O. Primary Care Provider Reason for Visit Reason Onset Date Comments Complex Care Coordination 06/28/2021May Bill ing Encounter Details Date Type Department Care Team Description 06/28/2021 Remote Monitoring Remote Patient BatistaSushma Complex Care Monitoring [address] [facility] Coordination [facility] [address] [place], [place] (May Billing ) [address] [facility] [address] [place], [place] [phone] (Work) Social History Tobacco Use Types Packs/Day [...] do you attend jainism or Never 2021 protestant services? Do you [...] or the highest Martin, MEd, WIND TURBINE ELECTRICAL ENGINEER, CAYDEN) degree you have received? Sex [...] documented as of this encounter Care Teams Adjuster And Inspector Relationship Specialty Start Date End Date Shayla Alford D.O. PCP - General Internal Medicine 05/22/[address] [phone] documented as of this encounter
--- OUTSIDE RECORDS SUMMARY | 2022-05-28 06:39 | XMS_ITS | Encounter Summary ---
:1945 Author Organization [facility] Address [address] [place] [address] Care Team Providers Name Role Phone Shayla Alford D.O. Primary Care Provider [phone] Encounter Details Date Type Department Care Team Description 06/18/2021 Hospital Encounter Department of Dolores, Personal History Of Laboratory Medicine Pato Mims Malignant Neoplasm Of in [place], [address] [facility] [address] [place] [phone] Social History Tobacco Use [...] completed or the highest Martin, MEd, GAS USAGE METER CLERK, CAYDEN) degree you have received? Sex [...] NEEDLE, DIABETIC Yani Fine 30 0 [facility] disposable needles. For use with Insulin Pens, 4 times daily SYRINGE-NEEDLE,INSULIN,0 0 .5 ML (INSULIN SYRINGE [facility]) budesonide-formoteroL Inhale 2 puffs daily 0 10/0 [...] Priority Date/Time Associated Diagnosis Comme nts CYTOLOGY NON-STONE LAYOUT MARKER Routine 06/18/2021 9:08 AM Personal History O f Results for this (SCHEDULED) CDT Malignant Neoplasm procedure are in Of Bladder the results section. documented in this encounter Results (ABNORMAL) Cytology Non-STONE LAYOUT MARKER (Scheduled) (06/18/2021 9:08 AM CDT) Component Value Ref Test Analysis Performed At [facility] gist Range Method Time Signature 06/19/2021 [...] Code Phon e Number [facility]- [address] [place], [place] [id number] [place] [address] [address] [facility] [address] Cytology 1025 [facility] documented in this encounter Visit Diagnoses Diagnosis Personal History Of Malignant Neoplasm O f Bladder documented in this encounter Additional Health Concerns Assessment Noted Time PHQ-9 Depression Total Score: 18 04/28/2018 11:27 AM C DT documented as of this encounter Care Teams Sourcing Specialist Relationship Specialty Start Date End Date Shayla Alford D.O. PCP - General Internal Medicine 05/22/[address] [phone] documented as of this encounter
--- OUTSIDE RECORDS SUMMARY | 2022-05-28 06:39 | XMS_ITS | Encounter Summary ---
:[address] [facility] Address [address] [place] [address] Care Team Providers Name Role Phone Shayla Alford D.O. Primary Care Provider [phone] Reason for Visit Reason Onset Date Comments Graduation 07/05/2021 Patient has graduate d from the Remote Monitoring program. Encounter Details Date Type Department Care Team Description 07/05/2021 Remote Monitoring Remote Patient Sayra Rogers Grad uation (Patient Monitoring R, B.S. has graduated from [place] [address] the Remote [address] [place] [address] (Work) Monitoring program.) [place] [address] Social History Tobacco Use Types Packs/Day Years [...] do you attend sabianist or Never 2021 islam services? Do you [...] have completed or the highest Martin, MEd, MOVIE CRITIC, CAYDEN) degree you have received? Sex Assigned at Date Recorded Male 05/21/2018 2:34 PM CDT documented as of this encounter Plan of Treatment Not on filedocumented as of this encounter Visit Diagnoses Not on filedocumented in this encounter Additional Health Concerns Assessment Noted Time PHQ-9 Depression Total Score: 18 04/28/2018 11:27 AM C DT documented as of this encounter Care Teams Statistical Programmer Relationship Specialty Start Date End Date Shayla Alford D.O. PCP - General Internal Medicine 05/22/20 [address] [place] [phone] documented as of this encounter
--- OUTSIDE RECORDS SUMMARY | 2022-05-28 06:39 | XMS_ITS | Encounter Summary ---
:1945 Author Organization [facility] Address [address] [place] [address] Care Team Providers Name Role Phone Shayla Alford D.O. Primary Care Provider [phone] Encounter Details Date Type Department Care Team Description 07/02/2021 Hospital Encounter Department of Cirilo Bernal Neoplasm Of Laboratory Medicine Pato Mims Bladder Posterior in [place], [address] ([facility]) [address] [place] [phone] Social History Tobacco Use [...] do you attend faith or Never 2021 congregation services? Do you [...] have completed or the highest Martin, MEd, CHILDREN'S AIDE, CAYDEN) degree you have received? Sex [...] (FREESTYLE SOFYA) times a day. Use to [facility] scan Sofya sensor [...] PEN NEEDLE, DIABETIC Yani Fine 30 0 [facility] disposable needles. For use with Insulin Pens, 4 times daily SYRINGE-NEEDLE,INSULIN,0 0 .5 ML (INSULIN SYRINGE [facility]) budesonide-formoteroL Inhale 2 [...] >=60 mL/min/BSA 07/02/2021 11:17 AM CDT [facility] [place] Comment: ----ADDITIONAL INFORMATION---- Estimated GFR calculated using the 2009 CKD_EPI creatinine equation. Specimen Anatomical Collection Method Collection Time Receive d Time (Source) Location / / Volume Laterality Blood (Blood, 07/02/2021 10:24 07/02/2021 Venous) AM CDT 10:25 AM CDT Prasanna Bernal M.D. 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 PCP - General Internal Medicine 05/22/202199 [facility] [place] [address] documented as of this encounter
--- OUTSIDE RECORDS SUMMARY | 2022-05-28 06:39 | XMS_ITS | Encounter Summary ---
:1945 Author Organization [facility] Address [address] [place] [address] Care Team Providers Name Role Phone Shayla Alford D.O. Primary Care Provider [phone] Reason for Visit Reason Onset Date Comments Complex Care Coordination 05/27/2021April Billing Encounter Details Date Type Department Care Team Description 05/27/2021 Remote Monitoring Remote Patient Siomara Jeffries Complex Care Monitoring [phone] Coordination ([facility] (Work) Billing) [address] [place] [address] Social History Tobacco Use Types Packs/Day Years [...] do you attend baptist or Never 2021 mu-ism services? Do you [...] have completed or the highest Martin, Sirena, WHOLESALE DIAMOND BROKER, CAYDEN) degree you have received? Sex Assigned at Date Recorded Male 05/21/2018 2:34 PM CDT documented as of this encounter Plan of Treatment Not on filedocumented as of this encounter Visit Diagnoses Diagnosis Hypertension Essential Primary documented in this encounter Additional Health Concerns Assessment Noted Time PHQ-9 Depression Total Score: 18 04/28/2018 11:27 AM C DT documented as of this encounter Care Teams C S S Representative Relationship Specialty Start Date End Date Shayla Alford D.O. PCP - General Internal Medicine 05/22/[address] [phone] documented as of this encounter
--- OUTSIDE RECORDS SUMMARY | 2022-05-28 06:39 | XMS_ITS | Encounter Summary ---
:1945 Author Organization [facility] Address [address] [place] [address] Care Team Providers Name Role Phone Shayla Alford D.OMauro Primary Care Provider [phone] Reason for Visit Reason Comments Med Refill Encounter Details Date Type Department Care Team Description 05/29/2021 Refill Department of Internal Medicine Shayla Rob, [facility] [address] [place] [address] [place] [address] [phone] (Wo rk) Social History Tobacco Use Types [...] completed or the highest Martin, MEd, MEDICAL STAFFING COORDINATOR, CAYDEN) degree you have received? Sex [...] have his diabetes care managed by his [place] [facility] not [facility]. He [...] by mouth every morning before breakfast. Pharmacy: [facility] [place], [place] - [facility] (Pharmacy) [phone] documented in this encounter Plan of Treatment Not on filedocumented as of this encounter Visit Diagnoses Diagnosis Diabetes Mellitus Type 2 Hyperglycemia ( HCC) documented in this encounter Additional Health Concerns Assessment Noted Time PHQ-9 Depression Total Score: 18 04/28/2018 11:27 AM C DT documented as of this encounter Care Teams Clinic Manager Relationship Specialty Start Date End Date Shayla Alford D.O. PCP - General Internal Medicine 05/22/[address] [phone] documented as of this encounter
--- OUTSIDE RECORDS SUMMARY | 2022-05-28 06:39 | XMS_ITS | Encounter Summary ---
:1945 Author Organization [facility] Address [address] [place] [address] Care Team Providers Name Role Phone Shayla Alford D.OMauro Primary Care Provider [phone] Reason for Visit Reason Comments Med Refill Encounter Details Date Type Department Care Team Description 06/14/2021 Refill Department of Internal Medicine Shayla oRb, [facility] [address] [place] [address] [place] [address] [phone] (Wo rk) Social History Tobacco Use Types [...] have completed or the highest Martin, MEd, FLAT POLISHER, CAYDEN) degree you have received? Sex [...] picked this up or not. Please advise [place] pharmacy. Primary Provider: Shayla Alford D.O. Pharmacy: [facility] documented in this encounter Plan of Treatment Not on filedocumented as of this encounter Visit Diagnoses Diagnosis 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) Diabetes Mellitus Type 2 Hyperglycemia ( HCC) documented in this encounter Additional Health Concerns Assessment Noted Time PHQ-9 Depression Total Score: 18 04/28/2018 11:27 AM C DT documented as of this encounter Care Teams Pointing Machine Operator Relationship Specialty Start Date End Date Shayla Alford D.O. PCP - General Internal Medicine 05/22/20 [address] [place] [address] documented as of this encounter
--- OUTSIDE RECORDS SUMMARY | 2022-05-28 06:40 | XMS_ITS | Encounter Summary ---
:1945 Author Organization [facility] Address [address] [place] [address] Care Team Providers Name Role Phone Shayla Alford D.O. Primary Care Provider [phone] Encounter Details Date Type Department Care Team Description 04/19/2021 Episode Changes Remote Patient Brenda Conroy Monitoring [facility] [address] [place] [address] Social History Tobacco Use Types Packs/Day Years [...] do you attend moravian or Never 2021 yazidism services? Do you [...] completed or the highest Martin, MEd, JEWELRY BENCH WORKER, CAYDEN) degree you have received? Sex Assigned at Date Recorded Male 05/21/2018 2:34 PM CDT documented as of this encounter Plan of Treatment Not on filedocumented as of this encounter Visit Diagnoses Not on filedocumented in this encounter Additional Health Concerns Assessment Noted Time PHQ-9 Depression Total Score: 18 04/28/2018 11:27 AM C DT documented as of this encounter Care Teams Surgery Attendant Relationship Specialty Start Date End Date Shayla Alford D.O. PCP - General Internal Medicine 05/22/[address] [phone] documented as of this encounter
--- OUTSIDE RECORDS SUMMARY | 2022-05-28 06:40 | XMS_ITS | Encounter Summary ---
:1945 Author Organization [facility] Address [address] [place] [address] Care Team Providers Name Role Phone Shayla Alford D.O. Primary Care Provider Encounter Details Date Type Department Care Team Description 04/18/2021 Hospital Encounter Department of [facility], Chronic Kidney Disease (CKD), Stage 3b Glomerular Filtration Rate (GFR) 30 To 44 (HCC); Laboratory Medicine Prateek Torres [facility] [address] [facility] [address] [place] [phone] Social History Tobacco Use Types Packs/Day Years [...] do you attend congregation or Never 2021 orthodoxy services? Do you [...] completed or the highest Martin, MEd, HAND SILVERING SUPERVISOR, CAYDEN) degree you have received? Sex [...] (FREESTYLE SOFYA) times a day. Use to [facility] scan Sofya sensor 5 times [...] e Number [facility]- [address] [place] [address] [place] [address] System in [place] [address] (ABNORMAL) Urinalysis with Microscopic: [...] 8.0 04/18/2021 9:23 AM CDT [place] Specific [place] 1.009 1.001 - 1.035 04/18/2021 9:23 AM [...] e Number [facility]- [address] [place] [address] [place] [address] System in [place] [address] documented in this encounter Visit Diagnoses Diagnosis Chronic Kidney Disease (CKD), Stage 3b G lomerular Filtration Rate (GFR) 30 To 44 (HCC) Hypertension Essential Primary documented in this encounter Additional Health Concerns Assessment Noted Time PHQ-9 Depression Total Score: 18 04/28/2018 11:27 AM C DT documented as of this encounter Care Teams Machine Fur Cleaner Relationship Specialty Start Date End Date Shayla Alford D.O. PCP - General Internal Medicine 05/22/202199 [place] [address] documented as of this encounter
--- OUTSIDE RECORDS SUMMARY | 2022-05-28 06:40 | XMS_ITS | Encounter Summary ---
:1945 Author Organization [facility] Address [address] [place] [address] Care Team Providers Name Role Phone Shayla Alford D.O. Primary Care Provider [phone] Encounter Details Date Type Department Care Team Description 04/12/2021 Documentation Division of Gastroenterology Justin feng in [facility] Jem P [address] [facility] [address] [place] [address] [place], [place] [phone] Social History Tobacco Use Types Packs/Day Years [...] do you attend bahai or Never 2021 episcopal services? Do you [...] completed or the highest Martin, MEd, ELECTRICAL DISCHARGE MACHINE OPERATOR, CAYDEN) degree you have received? [...] as of this encounter Care Teams Search Lead Relationship Specialty Start Date End Date Shayla Alford D.O. PCP - General Internal Medicine 05/22/[address] [phone] documented as of this encounter
--- OUTSIDE RECORDS SUMMARY | 2022-05-28 06:40 | XMS_ITS | Encounter Summary ---
:1945 Author Organization [facility] Address [address] [place] [address] Care Team Providers Name Role Phone Shayla Alford D.O. Primary Care Provider [phone] Reason for Visit Reason Onset Date Comments Hypertension 05/03/2021 Symptom Assessment 05/03/2021 Encounter Details Date Type Department Care Team Description 05/03/2021 Remote Monitoring Remote Patient Prateek Padilla; Monitoring Donna Duque R.N. Symptom Assessment [facility] [address] [address] [facility] (Work) [place] [address] Social History Tobacco Use Types Packs/Day Years [...] do you attend restorationist or Never 2021 anglican services? Do you [...] have completed or the highest Martin, MEd, MERCHANDISE EXECUTIVE, CAYDEN) degree you have received? Sex [...] documented as of this encounter Care Teams Email Marketing Intern Relationship Specialty Start Date End Date Shayla Alford D.O. PCP - General Internal Medicine 05/22/[address] [phone] documented as of this encounter
--- OUTSIDE RECORDS SUMMARY | 2022-05-28 06:40 | XMS_ITS | Encounter Summary ---
:1945 Author Organization [facility] Address [address] [place] [address] Care Team Providers Name Role Phone Shayla Alford D.O. Primary Care Provider [phone] Reason for Visit Reason Onset Date Comments Hypertension 04/30/2021 Welcome Call 04/30/2021 Intake Assessment 04/30/2021 Encounter Details Date Type Department Care Team Description 04/30/2021 Remote Monitoring Remote Patient Prateek Padilla; Monitoring Donna Duque R.N. Welcome Call; [facility] Intake Assessment [address] [facility] (Work) [place] [address] Social History Tobacco Use Types Packs/Day Years [...] have completed or the highest Martin, MEd, PLANT CONTROL OPERATOR, CAYDEN) degree you have received? Sex Assigned at Date Recorded Male 05/21/2018 2:34 PM CDT documented as of this encounter Progress Notes Donna Padilla RShama. 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 Patient is active outside at his [employer]. Jonnathan Costa was instructed on the program using Remote Monitoring program material StayingConnected with Remote Patient Monitoring ([id number]). Patient was instructed on whom to call [...] documented as of this encounter Care Teams Basin Cleaner Relationship Specialty Start Date End Date Shayla Alford D.O. PCP - General Internal Medicine 05/22/[address], [place] [address] documented as of this encounter
--- OUTSIDE RECORDS SUMMARY | 2022-05-28 06:40 | XMS_ITS | Encounter Summary ---
:1945 Author Organization [facility] Address [address] [place] [address] Care Team Providers Name Role Phone Shayla Alford D.O. Primary Care Provider [phone] Reason for Visit Reason Onset Date Comments Hypertension 05/07/2021 Encounter Details Date Type Department Care Team Description 05/07/2021 Remote Monitoring Remote Patient Raquel Le Hypertension Monitoring [facility] [address] [place] [address] Social History Tobacco Use Types Packs/Day Years [...] do you attend judaism or Never 2021 advent services? Do you [...] have completed or the highest Martin, MEd, PROGRAM DIRECTOR AIR TALENT, CAYDEN) degree you have received? Sex Assigned at Date Recorded Male 05/21/2018 2:34 PM CDT documented as of this encounter Plan of Treatment Not on filedocumented as of this encounter Visit Diagnoses Not on filedocumented in this encounter Additional Health Concerns Assessment Noted Time PHQ-9 Depression Total Score: 18 04/28/2018 11:27 AM C DT documented as of this encounter Care Teams Mission Worker Relationship Specialty Start Date End Date Shayla Alford D.O. PCP - General Internal Medicine 05/22/20 [address] [place] [address] documented as of this encounter
--- OUTSIDE RECORDS SUMMARY | 2022-05-28 06:40 | XMS_ITS | Encounter Summary ---
:1945 Author Organization [facility] Address [address] [place] [address] Care Team Providers Name Role Phone Shayla Alford D.O. Primary Care Provider [phone] Encounter Details Date Type Department Care Team Description 05/16/2021 Hospital Encounter Department of [facility], Chronic Kidney Disease (CKD), Stage 3b Glomerular Filtration Rate (GFR) 30 To 44 (HCC); Laboratory Medicine Prateek Torres [facility] [address] [place] [address] [place] [phone] [place], [place] [phone] (Work) [phone] Social History Tobacco Use Types Packs/Day Years [...] you attend jehovah's witness or Never 2021 worship services? Do you [...] have completed or the highest Martin, MEd, SMUDGER, CAYDEN) degree you have received? Sex Assigned [...] PEN NEEDLE, DIABETIC Yani Fine 30 0 [facility] disposable needles. For use with Insulin Pens, 4 times daily SYRINGE-NEEDLE,INSULIN,0 0 .5 ML (INSULIN SYRINGE [facility]) budesonide-formoteroL Inhale 2 puffs daily [...] GarciaBMauroSMauro LAB URINE ORDERABLES Performing Organization Address City/[facility]/ZIP [place] Phon e Number [facility] - 200 [place], [place] [address] [place] [address] [place] [address] pH, Urine (05/16/2021 1:08 PM CDT) P athologist Signature pH, U 5.0 4.5 - 8.0 05/16/2021 2:25 DTL PM CDT Specimen Anatomical Collection Method Collection Time Receive d Time (Source) Location / / Volume Laterality Urine 05/16/2021 1:08 PM 1 1:45 CDT PM CDT Melissa RiveraSMauro LAB URINE ORDERABLES Performing Organization Address City/[facility]/ZIP Code Phon e Number [facility] - 200 [place], [place] [address] [facility] [place] [address] Microscopic Automated (05/16/2021 1:08 PM CDT) P athologist Signature Microscopy Normal 05/16/2021 2:05 DTL PM CDT Specimen Anatomical Collection Method Collection Time Receive d Time (Source) Location / / Volume Laterality Urine 05/16/2021 1:08 PM 1 1:45 CDT PM CDT Melissa RiveraSMauro LAB URINE ORDERABLES Performing Organization Address City/[facility]/ZIP [place] Phon e Number [facility] - 200 [place], [place] [address] [facility] [place] [address] (ABNORMAL) Dipstick, Urine (05/16/2021 1:08 PM [...] RiveraSMauro LAB URINE ORDERABLES Performing Organization Address City/[facility] Code Phon e Number [facility] - [address] (ABNORMAL) Albumin, Random, Urine (05/16/2021 1:08 PM CDT) P athologist Signature Albumin, 120.9 mg/L 05/17/2021 DTL Random, U 8:10 AM CDT Comment: ----ADDITIONAL INFORMATION---- This test has been modified from the rachel blunt's instructions. Its performance characteri stics were determined by [facility] in a manner co nsistent with [...] RiveraSMauro LAB URINE ORDERABLES Performing Organization Address City/[facility]/ZIP Code Phon e Number [facility] - [address] (ABNORMAL) Urinalysis with Microscopic: Urine, Midstream [...] Code Phon e Number [facility] - [address] [place], [place] [address] [facility] [place] [address] Laboratories-[facility] [address] documented in this encounter Visit Diagnoses Diagnosis Chronic Kidney Disease (CKD), Stage 3b G lomerular Filtration Rate (GFR) 30 To 44 (HCC) Hypertension [facility] documented in this encounter Additional Health Concerns Assessment Noted Time PHQ-9 Depression Total Score: 18 04/28/2018 11:27 AM C DT documented as of this encounter Care Teams Migratory Worker Relationship Specialty Start Date End Date Shayla Alford D.O. PCP - General Internal Medicine 05/22/[address] [phone] documented as of this encounter
--- OUTSIDE RECORDS SUMMARY | 2022-05-28 06:40 | XMS_ITS | Encounter Summary ---
:1945 Author Organization [facility] Address [address] [place] [address] Care Team Providers Name Role Phone Shayla Alford D.O. Primary Care Provider [phone] Reason for Visit Reason Onset Date Comments Hypertension 04/25/2021 Welcome Call 04/25/2021 Encounter Details Date Type Department Care Team Description 04/25/2021 Remote Monitoring Remote Patient Prateek Padilla; Monitoring Donna Duque R.N. Welcome Call [facility] [address] [facility] (Work) [place] [address] Social History Tobacco Use Types Packs/Day Years [...] do you attend pentecostalism or Never 2021 taoist services? Do you [...] completed or the highest Martin, MEd, ACADEMIC GUIDANCE SPECIALIST, CAYDEN) degree you have received? Sex Assigned at Date Recorded Male 05/21/2018 2:34 PM CDT documented as of this encounter Plan of Treatment Not on filedocumented as of this encounter Visit Diagnoses Not on filedocumented in this encounter Additional Health Concerns Assessment Noted Time PHQ-9 Depression Total Score: 18 04/28/2018 11:27 AM C DT documented as of this encounter Care Teams Lead Technologist In Cytogenetics Relationship Specialty Start Date End Date Shayla Alford D.O. PCP - General Internal Medicine 05/22/[address] [phone] documented as of this encounter
--- OUTSIDE RECORDS SUMMARY | 2022-05-28 06:40 | XMS_ITS | Encounter Summary ---
:1945 Author Organization [facility] Address [address] [place] [address] Care Team Providers Name Role Phone Shayla Alford D.O. Primary Care Provider [phone] Encounter Details Date Type Department Care Team Description 04/19/2021 Episode Changes Remote Patient Brenda Conroy Monitoring [facility] [address] [place] [address] Social History Tobacco Use Types Packs/Day Years [...] you attend oriental orthodox or Never 2021 baptist services? Do you [...] have completed or the highest Martin, MEd, AGRICULTURE MECHANIC, CAYDEN) degree you have received? Sex Assigned at Date Recorded Male 05/21/2018 2:34 PM CDT documented as of this encounter Plan of Treatment Not on filedocumented as of this encounter Visit Diagnoses Not on filedocumented in this encounter Additional Health Concerns Assessment Noted Time PHQ-9 Depression Total Score: 18 04/28/2018 11:27 AM C DT documented as of this encounter Care Teams Lease Administration Supervisor Relationship Specialty Start Date End Date Shayla Alford D.O. PCP - General Internal Medicine 05/22/[address] [phone] documented as of this encounter
--- OUTSIDE RECORDS SUMMARY | 2022-05-28 06:40 | XMS_ITS | Encounter Summary ---
:1945 Author Organization [facility] Address [address] [place] [address] Care Team Providers Name Role Phone Shayla Alford D.O. Primary Care Provider [phone] Reason for Visit Reason Onset Date Comments [...] Conroy Xander ome Call Monitoring K (Completed [place] [facility] Call with patient, [address] (Work) shared info on [place], [place] Remote Monitor [facility] [phone] Terms of Servic e, equipment order ed [...] do you attend hinduism or Never 2021 nondenominational services? Do you [...] have completed or the highest Martin, MEd, PIPELINE TECHNICIAN, CAYDEN) degree you have received? Sex [...] Monitor: [employer]D Medical Blood Pressure Monitor model SB-001AYH-Vh (FDA I224014) or R[employer] Skye Blood Pressure Monitor model H-KL958XLQ (FDA B049823) ? ? Weight Scale: MyMedPlasts Weight Scale model XL-700, Rios Skye Weight Scale model 267333, or [employer] Weight Scale model BW-522UBD-Gj ??? Pulse Oximeter: Nonin Pulse Oximeter model 3230 ([facility] [id number]) or Nonin Pulse Oximeter model 9560([facility] [id number]) ? ? Thermometer: A[employer]D Medical Thermometer model DT-105 or [facility] Basal Thermometer model 08-365 ??? Continuous Monitor: Everion V1 ([facility] [id number]) Remote Monitoring nurses address patient's questions pertaining to use of the equipment at patient'sinitial assessment visit. documented in this encounter Plan of Treatment Not on filedocumented as of this encounter Visit Diagnoses Not on filedocumented in this encounter Additional Health Concerns Assessment Noted Time PHQ-9 Depression Total Score: 18 04/28/2018 11:27 AM C DT documented as of this encounter Care Teams Data Steward Relationship Specialty Start Date End Date Shayla Alford D.O. PCP - General Internal Medicine 05/22/[address] [address] documented as of this encounter
--- OUTSIDE RECORDS SUMMARY | 2022-05-28 06:40 | XMS_ITS | Encounter Summary ---
:1945 Author Organization [facility] Address [address] [place] [address] Care Team Providers Name Role Phone Shayla AlfordOMauro Primary Care Provider [phone] Reason for Visit Reason Comments Form Review [place] med review Canaglifozin Encounter Details Date Type Department Care Team Description 04/18/2021 Clinical Communication Department of Alexys marin Review ([facility] Internal Medicine Shayla queen, review Mehran rodriguez) in [facility] [address] [place] [phone] Social History Tobacco Use Types Packs/Day Years [...] do you attend yarsanism or Never 2021 presybeterian services? Do you [...] have completed or the highest Martin, MEd, OPTOMETRIC AIDE, CAYDEN) degree you have received? Sex Assigned at Date Recorded Male 05/21/2018 2:34 PM CDT documented as of this encounter Miscellaneous Notes Telephone Encounter - Tari Crystal - 04/20/2021 10:28 AM CDT Received back completed form. Form faxed back to the listed facility. Scanned into [facility] Telephone Encounter - Patience Can - 04/18/2021 12:58 PM CDT Form was emailed to Dr. Reid for electronic review/signature. VARYING EXCEPTIONALITIES TEACHER:IA PHONE NUMBER: INFO REQUESTEDA med review Eusebia INSTRUCTIONS: fax to [phone] documented in this encounter Plan of Treatment Not on filedocumented as of this encounter Visit Diagnoses Not on filedocumented in this encounter Additional Health Concerns Assessment Noted Time PHQ-9 Depression Total Score: 18 04/28/2018 11:27 AM C DT documented as of this encounter Care Teams Air Quality Instrument Specialist Relationship Specialty Start Date End Date Shayla Alford D.O. PCP - General Internal Medicine 05/22/[address] [address] documented as of this encounter
--- OUTSIDE RECORDS SUMMARY | 2022-05-28 06:40 | XMS_ITS | Encounter Summary ---
:1945 Author Organization [facility] Address [address] [place] [address] Care Team Providers Name Role Phone Shayla Alford D.O. Primary Care Provider [phone] Reason for Referral Outpatient (Routine) - Closed Specialty Diagnoses / Procedures Referred By Contact Refer red To Contact [facility] Internal ARMAAN Alford SE, D.O. [address] [place] [address] Referral ID Status Reason Start Date Expiration Date Visits Requ ested Visits Authorized [id number] Closed 04/19/2021 04/19/2022 1 1 Scheduling Instructions Schedule one hour due to complex medical history CHF, diabetes type 2, copd, hip pain , C KD Reason for Visit Reason Comments Med Management Diabetes Mellitus Outpatient (Routine) - Closed Specialty Diagnoses / Procedures Referred By Contact Refer red To Contact [facility] ARMAAN Alford SE, D.O. [address] [place] [phone] Referral ID Status Reason Start Date Expiration Date Visits Requ ested Visits Authorized [id number] Closed 03/14/2021 03/14/2022 1 1 Encounter Details Date Type Department Care Team Description 04/19/2021 Office Visit Department of Internal Rocío sanders Kidney Disease (CKD), Stage 3b Glomerular Filtration Rate (GFR) 30 To 44 ([facility]) (Primary Dx); Medicine in [place], , Shayla D .O. Chronic Systolic (Congestive) Heart Fail ure (HCC); [place] 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 Do you [...] completed or the highest Martin, MEd, ELECTRICAL EQUIPMENT TESTER, CAYDEN) degree you have received? Sex [...] at length management. We did call the [facility] and spoke with both the patient's PCP in the [facility] [Dr. Johnson Mcnamara] as well as the pharmacist in charge of the diabetes program at the [facility]. We discussed that the patient is not a good candidate for metformin due to decline in kidney function and a GFR of 30 just 3 months ago now back up to 40. We recommended the use of SGLT-2 for kidney and heart benefits. The patient will need to stay with the [facility] in order for him to receive the [employer] Sofya Monitoring Program. They stated that if the patient has his diabetes managed at another clinic, they will take the monitor back. During his hospitalization in [facility], the patient was given [...] at length management. We did call the [facility] and [facility]with [facility] [[facility] Mcnamara] as well as the pharmacist in charge of the diabetes program at the [facility]. We discussed that the patient is not a good candidate for metformin due todecline in kidney function and a GFR of 30 just 3 months ago now back up to 40. We recommended the use of SGLT-2 for kidney and heart benefits. The [facility] with the [facility] in [facility] for him to receive the [employer] Sofya Monitoring Program. They stated that if [...] managing is ordered today: - Remote monitoring ([facility]); Future; Expected date: 04/19/2021 I [...] behalf by Sarai Cason, a trained medical education coordinator. The creation of this recordis based on the scribe remotely listening to the visit and the provider's statements to them. This do cument has been checked and approved by the attending provider. Time spent 62 minutes Electronically signed by: Shayla Alford D.O. 04/20/21 11:01 AM CDT documented in this encounter Plan of Treatment Scheduled Referrals Name Type Priority Associated Diagnoses Order [facility] Internal Outpatient Referral Routine Ex [...] Organization Address City/State/ZIP Code Phon e Number [facility]- [address] [place] [address] [facility] [place] [address] System in [place] [address] DX Hip And Pelvis [...] as of this encounter Care Teams Physician Assistant Relationship Specialty Start Date End Date Shayla Alford D.O. PCP - General Internal Medicine 05/22/[address] [phone] documented as of this encounter
--- OUTSIDE RECORDS SUMMARY | 2022-05-28 06:40 | XMS_ITS | Encounter Summary ---
:1945 Author Organization [facility] Address [address] [place] [address] Care Team Providers Name Role Phone Shayla Alford D.O. Primary Care Provider [phone] Reason for Referral Outpatient (Routine) - Closed Specialty Diagnoses / Procedures Referred By Contact Refer red To Contact Diagnoses Chronic Kidney Disease (CKD), Stage 3b Glomerular Filtration Rate (GFR) 30 To 44 (HCC) Hypertension Essential Primary Melissa Ferrer M.B.B.SMauro [facility] Procedures US Kidneys with Renal Artery Doppler [address] [place] [address] Referral ID Status Reason Start Date Expiration Date Visits Requ ested Visits Authorized [id number] Closed 04/12/2021 04/12/2022 1 1 Reason for Visit Outpatient (Routine) - Closed Specialty Diagnoses / Procedures Referred By Contact Refer red To Contact Diagnoses Chronic Kidney Disease (CKD), Stage 3b Glomerular Filtration Rate (GFR) 30 To 44 (HCC) Hypertension Essential Primary Melissa Ferrer M.B.B.S. [facility] Procedures US Kidneys with Renal Artery Doppler [address] [place] [address] Referral ID Status Reason Start Date Expiration Date Visits Requ ested Visits Authorized [id number] Closed 04/12/2021 04/12/2022 1 1 Encounter Details Date Type Department Care Team Description 04/27/2021 Hospital Encounter Department of [facility], Chronic Kidney Disease (CKD), Stage 3b Glomerular Filtration Rate (GFR) 30 To 44 (HCC); Radiology, Dayo Richardson [facility] Primary Building, in [place], [place] [address] [facility] [address] [place] [phone] [phone] Social History Tobacco Use Types Packs/Day Years [...] do you attend cheondoism or Never 2021 confucianist services? Do you [...] have completed or the highest Martin, MEd, DIRECT OF REAL ESTATE, CA[place]) degree you have received? Sex Assigned [...] PEN NEEDLE, DIABETIC Yani Fine 30 0 [facility] disposable needles. For use with Insulin Pens, 4 times daily SYRINGE-NEEDLE,INSULIN,0 0 .5 ML (INSULIN SYRINGE [facility]) budesonide-formoteroL Inhale 2 puffs daily 0 10/0 [...] documented as of this encounter Care Teams Chinese Language Professor Relationship Specialty Start Date End Date Shayla Alford D.O. PCP - General Internal Medicine 05/22/[address] [place] [phone] documented as of this encounter
--- OUTSIDE RECORDS SUMMARY | 2022-05-28 06:40 | XMS_ITS | Encounter Summary ---
:1945 Author Organization [facility] Address [address] [place] [address] Care Team Providers Name Role Phone Shayla Alford D.O. Primary Care Provider [phone] Reason for Referral Outpatient (Routine) - Closed Specialty Diagnoses / Procedures Referred By Contact Refer anna To Contact Nephbenito and Melissa Ferrer [place] [facility] Hypertension M.B.B.S. [address] [place] [address] Referral ID Status Reason Start Date Expiration Date Visits Requ ested Visits Authorized [id number] Closed 05/16/2021 05/16/2022 1 1 Reason for Visit Reason Comments Chronic Kidney Disease Outpatient (Routine) - Closed Specialty Diagnoses / Procedures Referred By Contact Madelaine castillo To Contact Melissa March [place] [facility] M.B.B.S. [address] [place] [address] Referral ID Status Reason Start Date Expiration Date Visits Requ ested Visits Authorized [id number] Closed 04/12/2021 04/12/2022 1 1 Encounter Details Date Type Department Care Team Description 05/16/2021 Office Visit Division of Nephrology Fabio Ferrer Kidney Disease (CKD), Stage 3b Glomerular Filtration Rate (GFR) 30 To 44 (HCC) (Primary Dx); and Hypertension in Melissa, Hyperten nubia Essential Primary [place], [place] M.B.B.S. [address] [place] [phone] [phone] Social History Tobacco Use Types Packs/Day Years [...] do you attend christianity or Never 2021 synagogue services? Do you [...] have completed or the highest Martin, MEd, FOOT AND ANKLE SURGEON, [place]) degree you have received? Sex Assigned [...] now started on SGLT-2 inhibitor by his engine builder in [place]. We discussed stopping his afternoon dose of [...] (ABNORMAL) Albumin, Random, Urine (10/18/2021 10:20 AM VOCATIONAL SCHOOL TEACHER) [facility] Method Time Signature Microalbumin 66.0 mg/L 10/18/2021 OWAT 1:14 PM VOCATIONAL SCHOOL TEACHER Creatinine 26 mg/dL 10/18/2021 OWAT 1:14 PM VOCATIONAL SCHOOL TEACHER Albumin/Creatinin 254 (H) <17 mg/g 10/18/2021 OWAT e Ratio 1:14 PM VOCATIONAL SCHOOL TEACHER Specimen Anatomical Collection Method Collection Time Receive d Time (Source) Location / / Volume Laterality Urine (Urine, 10/18/2021 10:20 10/18/2021 Clean Catch) AM VOCATIONAL SCHOOL TEACHER 12:44 PM VOCATIONAL SCHOOL TEACHER Melissa Blackmon LAB URINE ORDERABLES Performing Organization Address City/State/ZIP Code Phon e Number [facility]- [address] [place] [address] [place] [address] System in [place] [address] (ABNORMAL) Urinalysis with Microscopic: Urine, Midstream (10/18/2021 10:20 AM VOCATIONAL SCHOOL TEACHER) Analysis Performed At Path logist Time Signature Source Urine, Urine, 10/18/2021 FB60 Midstream 10:31 AM VOCATIONAL SCHOOL TEACHER Clarity Clear Clear 10/18/2021 FB60 11:03 AM VOCATIONAL SCHOOL TEACHER Color Yellow 10/18/2021 FB60 11:03 AM VOCATIONAL SCHOOL TEACHER Comment: ----REFERENCE VALUE---- Colorless Yellow Mitra Blood Negative Negative 10/18/2021 11:03 AM VOCATIONAL SCHOOL TEACHER FB60 Nitrite Negative Negative 10/18/2021 11:03 AM VOCATIONAL SCHOOL TEACHER FB60 Leukocyte Esterase Negative Negative 10/18/2021 11:[address] FB60 Protein Negative mg/dL 10/18/2021 11:03 AM VOCATIONAL SCHOOL TEACHER FB60 Comment: ----REFERENCE VALUE---- Negative Trace Glucose >=1000 (A) Negative mg/dL 10/18/2021 11:03 AM VOCATIONAL SCHOOL TEACHER FB60 Ketones, QI(U) Negative Negative mg/dL 10/18/2021 11:03 AM VOCATIONAL SCHOOL TEACHER FB60 Bilirubin Negative Negative 10/18/2021 11:03 AM VOCATIONAL SCHOOL TEACHER FB60 pH 5.5 5.0 - 8.0 10/18/2021 11:03 AM VOCATIONAL SCHOOL TEACHER FB60 Specific [place] 1.010 1.001 - 1.035 10/18/2021 11:03 AM VOCATIONAL SCHOOL TEACHER FB60 Urobilinogen 0.2 0.2 - 1.0 mg/dL 10/18/2021 11:[address] FB60 White Blood Cells Occ-3 /hpf 10/18/2021 11:04 AM CS T FB60 Comment: ----REFERENCE VALUE---- Males: 0-3 Females: 0-10 Unknown: 0-10 Red Blood Cells None Seen 0 - 2 /hpf 10/18/2021 11:04 AM VOCATIONAL SCHOOL TEACHER FB60 Specimen Anatomical Collection Method Collection Time Receive d Time (Source) Location / / Volume Laterality Urine (Urine, 10/18/2021 10:20 10/18/2021 Midstream) AM VOCATIONAL SCHOOL TEACHER 10:31 AM VOCATIONAL SCHOOL TEACHER Melissa RiveraS. LAB URINE ORDERABLES Performing Organization Address City/State/ZIP Code Phon e Number [facility]- [address] [place] [address] [place] [address] [facility] FB[address] [place] [address] System [address] Uric Acid (10/09/2021 11:08 AM VOCATIONAL SCHOOL TEACHER) P athologist Signature Uric Acid, P 7.5 3.7 - 8.0 10/09/2021 AUST mg/dL 4:28 PM VOCATIONAL SCHOOL TEACHER Specimen Anatomical Collection Method Collection Time Receive d Time (Source) Location / / Volume Laterality Blood (Blood, 10/09/2021 11:08 10/09/2021 4:05 Venous) AM VOCATIONAL SCHOOL TEACHER PM VOCATIONAL SCHOOL TEACHER Melissa GarciaB.S. LAB BLOOD ADD-ON Performing Organization Address City/State/ZIP Code Phon e Number [facility]- [address] [place] [address] [facility] [place] [address] [facility] [address] (ABNORMAL) Renal Function Panel (10/09/2021 11:08 AM VOCATIONAL SCHOOL TEACHER) Analysis Performed At Patho logist Time Signature Potassium, P 4.6 3.6 - 5.2 10/09/2021 OWAT mmol/L 11:36 AM VOCATIONAL SCHOOL TEACHER Sodium, P 133 (L) 135 - 145 10/09/2021 OW[place] mmol/L 11:36 AM VOCATIONAL SCHOOL TEACHER Chloride, P 98 98 - 107 10/09/2021 OW[place] mmol/L 11:36 AM VOCATIONAL SCHOOL TEACHER Bicarbonate, P 22 22 - 29 10/09/2021 OW[place] mmol/L 11:35 AM VOCATIONAL SCHOOL TEACHER Anion Gap, P 13 7 - 15 10/09/2021 OWAT 11:36 AM VOCATIONAL SCHOOL TEACHER BUN (Blood Urea 38 (H) 8 - 24 10/09/2021 OWAT Nitrogen), P mg/dL 11:35 AM VOCATIONAL SCHOOL TEACHER Creatinine 1.69 (H) 0.74 - 10/09/2021 OW[place] 1.35 mg/dL 11:35 AM VOCATIONAL SCHOOL TEACHER eGFR-Black/Afri 44 (L) >=60 10/09/2021 OWAT can Barb[place] mL/min/BSA 11:35 AM VOCATIONAL SCHOOL TEACHER Comment: ----ADDITIONAL INFORMATION---- Estimated GFR calculated using the 2009 CKD_EPI creatinine equation. eGFR Non-Black/ 38 (L) >=60 mL/min/BSA 10/09/2021 11:35 AM VOCATIONAL SCHOOL TEACHER OWAT Barb[place] Comment: ----ADDITIONAL INFORMATION---- Estimated GFR calculated using the 2009 CKD_EPI creatinine equation. Calcium, Total, P 8.9 8.8 - 10.2 mg/dL 10/09/2021 11:3 5 AM VOCATIONAL SCHOOL TEACHER OWAT Glucose, P 440 (CH) 70 - 140 mg/dL 10/09/2021 12:34 PM VOCATIONAL SCHOOL TEACHER OWAT Albumin, P 3.6 3.5 - 5.0 g/dL 10/09/2021 11:35 AM VOCATIONAL SCHOOL TEACHER OWAT Phosphorus (Inorganic), P 4.4 2.5 - 4.5 mg/dL 10/09/19 4:28 PM VOCATIONAL SCHOOL TEACHER AUST Specimen Anatomical Collection Method Collection Time Receive d Time (Source) Location / / Volume Laterality Blood (Blood, 10/09/2021 11:08 10/09/2021 4:05 Venous) AM VOCATIONAL SCHOOL TEACHER PM VOCATIONAL SCHOOL TEACHER Narrative [facility] - 10/09/2021 4:28 PM VOCATIONAL SCHOOL TEACHER Specimen Information: Specimen ID: [id number] Specimen Type: Blood Specimen Collection Start Date: 10/09/19 11:08 AM Specimen Received Date: 10/09/2021 ??4:0 5 PM Specimen ID: [id number] Specimen Type: Blood Specimen Collection Start Date: 10/09/19 11:08 AM Specimen Received Date: 10/09/2021 11:09 AM Melissa Blackmon LAB BLOOD ADD-ON Performing Organization Address City/State/ZIP Code Phon e Number [facility]- [address] [place] [address] [place] [address] System in [place] [address] [facility] [place] [address] [facility] [address] documented in this [...] as of this encounter Care Teams Merchandise Supervisor Relationship Specialty Start Date End Date Shayla Alford D.O. PCP - General Internal Medicine 05/22/[address] [place] [phone] documented as of this encounter
--- OUTSIDE RECORDS SUMMARY | 2022-05-28 06:40 | XMS_ITS | Encounter Summary ---
:1945 Author Organization [facility] Address [address] [place] [address] Care Team Providers Name Role Phone Shayla Alford D.O. Primary Care Provider [phone] Reason for Visit Reason Onset Date Comments Hypertension 05/07/2021 Symptom Assessment 05/07/2021 Encounter Details Date Type Department Care Team Description 05/07/2021 Remote Monitoring Remote Patient Raquel Caldwell, Hypert ension; Symptom Monitoring R.N. Assessment [facility] [address] [facility] [address] [place] [phone] Social History Tobacco Use Types Packs/Day Years [...] do you attend anabaptism or Never 2021 jehovah's witness services? Do [...] have completed or the highest Martin, MEd, ALIGNER TYPEWRITER, [place]) degree you have received? Sex Assigned [...] documented as of this encounter Care Teams Addictions Therapist Relationship Specialty Start Date End Date Shayla Alford D.O. PCP - General Internal Medicine 05/22/[address] [phone] documented as of this encounter
--- OUTSIDE RECORDS SUMMARY | 2022-05-28 06:40 | XMS_ITS | Encounter Summary ---
:1945 Author Organization [facility] Address [address] [place] [address] Care Team Providers Name Role Phone Shayla Alford D.O. Primary Care Provider [phone] Reason for Visit Reason Comments Medical Information Encounter Details Date Type Department Care Team Description 04/19/2021 Clinical Communication Department of Alexys Wheeler [facility] Information Internal Medicine en, Shayla in [place] [address] [place] [phone] Social History Tobacco Use [...] do you attend adventism or Never 2021 hinduism services? Do you belong to any clubs or No 10/09/2021 organizations such as adventism groups, unions, fraLearncafe or athletic groups, or school groups? How [...] have completed or the highest Martin, MEd, TENTER FEEDER, CAY[place]) degree you have received? Sex Assigned at Date Recorded Male 05/21/2018 2:34 PM CDT documented as of this encounter Miscellaneous Notes Telephone Encounter - Kayli Rivera LMauroP.N. - 04/19/2021 1:55 PM CDT Fax order to [phone]. Telephone Encounter - Raheem Patel - 04/19/2021 11:36 AM CDT Reason for Communication: Patients Diallo called and she wanted to give jacki the info for theoxygen supplier. [facility]. [address] [place] [address] is the info she gave Current Can [...] documented as of this encounter Care Teams Grant Coordinator Relationship Specialty Start Date End Date Shayla Alford D.O. PCP - General Internal Medicine 05/22/[address] [phone] documented as of this encounter
--- OUTSIDE RECORDS SUMMARY | 2022-05-28 06:40 | XMS_ITS | Encounter Summary ---
:1945 Author Organization [facility] Address [address] [place] [address] Care Team Providers Name Role Phone Shayla Alford D.O. Primary Care Provider [phone] Reason for Visit Reason Onset Date Comments Hypertension 05/11/2021 Symptom Assessment 05/11/2021 Encounter Details Date Type Department Care Team Description 05/11/2021 Remote Monitoring Remote Patient Kayli Guzman Hyp ertension; Monitoring K, R.N. Symptom Assessment [facility] [address] [facility] (Work) [place] [address] Social History Tobacco Use Types Packs/Day Years [...] do you attend mandaen or Never 2021 anabaptism services? Do you [...] completed or the highest Martin, MEd, HEALTH CARE FACILITY ADMINISTRATOR, [place]) degree you have received? Sex [...] documented as of this encounter Care Teams Explosive Operator Fuse Relationship Specialty Start Date End Date Shayla Alford D.O. PCP - General Internal Medicine 05/22/[address] [phone] documented as of this encounter
--- OUTSIDE RECORDS SUMMARY | 2022-05-28 06:40 | XMS_ITS | Encounter Summary ---
:1945 Author Organization [facility] Address [address] [place] [address] Care Team Providers Name Role Phone Shayla Alford D.O. Primary Care Provider [phone] Reason for Visit Reason Onset Date Comments Hypertension 05/01/2021 Symptom Assessment 05/01/2021 Encounter Details Date Type Department Care Team Description 05/01/2021 Remote Monitoring Remote Patient Prateek Padilla; Monitoring Donna Duque R.N. Symptom Assessment [facility] [address] [address] [facility] (Work) [place] [address] Social History Tobacco Use Types Packs/Day Years [...] have completed or the highest Martin, MEd, WAREHOUSE SHIPPER, [place]) degree you have received? Sex Assigned at Date Recorded Male 05/21/2018 2:34 PM CDT documented as of this encounter Plan of Treatment Not on filedocumented as of this encounter Visit Diagnoses Not on filedocumented in this encounter Additional Health Concerns Assessment Noted Time PHQ-9 Depression Total Score: 18 04/28/2018 11:27 AM C DT documented as of this encounter Care Teams Infant Nanny Relationship Specialty Start Date End Date Shayla Alford D.O. PCP - General Internal Medicine 05/22/20 [address] [place] [phone] documented as of this encounter
--- OUTSIDE RECORDS SUMMARY | 2022-05-28 06:40 | XMS_ITS | Encounter Summary ---
:1945 Author Organization [facility] Address [address] [place] [address] Care Team Providers Name Role Phone Shayla Alford D.O. Primary Care Provider [phone] Reason for Referral Outpatient (Routine) - Closed Specialty Diagnoses / Procedures Referred By Contact Refer red To Contact Diagnoses Hypertension Essential Primary Shayla Alford [facility] D.O. [address] [place] [address] Referral ID Status Reason Start Date Expiration Date Visits Requ ested Visits Authorized [id number] Closed 05/01/2021 05/01/2022 1 1 Encounter Details Date Type Department Care Team Description 05/01/2021 Orders Only Department of Internal Selvin Alford ypertension Essential Medicine in [place].O . Primary (Primary Dx) [place] [address] [place] [phone] Social History Tobacco Use Types Packs/Day Years [...] you attend roman catholic or Never 2021 lutheran services? Do you [...] have completed or the highest Martin, MEd, POLISHER APPRENTICE, [place]) degree you have received? Sex Assigned at Date Recorded Male 05/21/2018 2:34 PM CDT documented as of this encounter Plan of Treatment Scheduled Referrals Name Type Priority Associated Diagnoses Order S [facility] Primary Care Outpatient Referral Routine Hypertension [facility] Expected: nurse visit Primary 05/15/2021 (clinic) - [facility] (Appro[facility] ), [place]; Expires: Vital signs 05/01/2024 documented as of this encounter Visit Diagnoses Diagnosis Hypertension Essential Primary - Primary documented in this encounter Additional Health Concerns Assessment Noted Time PHQ-9 Depression Total Score: 18 04/28/2018 11:27 AM C DT documented as of this encounter Care Teams Brake Operator Helper Relationship Specialty Start Date End Date Shayla Alford D.O. PCP - General Internal Medicine 05/22/[address] [phone] documented as of this encounter
--- OUTSIDE RECORDS SUMMARY | 2022-05-28 06:40 | XMS_ITS | Encounter Summary ---
:1945 Author Organization [facility] Address [address] [place] [address] Care Team Providers Name Role Phone Shayla Alford D.O. Primary Care Provider [phone] Reason for Visit Reason Comments Medical Information Remote BP Monitoring Device Encounter Details Date Type Department Care Team Description 05/01/2021 Clinical Communication Department of Alexys Wheeler [facility] Information Internal Medicine en, Shayla, (Remote BP in [place], D.O. Monitoring Device) [place] [address] [place] [phone] Social History Tobacco Use Types Packs/Day Years [...] do you attend zoroastrian or Never 2021 roman catholic services? Do [...] completed or the highest Martin, MEd, PROCESS ENVIRONMENTAL TECHNICIAN, CAYDEN) degree you have received? Sex [...] agreeable to nurse visit. Warm transferred to [facility] to schedule appointment. PLAN Disposition/Recommendation: patient [...] and has been for abouta week. This technical report writer discussed with the patient that I would look into his home monitoring device, and discuss his situation further with his provider and follow up with a phone call once knowing more information. Nursing then called [phone] and spoke to remote monitoring nurse who instructed this technical report writer where to find the home [...] or nurse, please advise. Current Phone Number: [phone] Can Nursing/Provider leave a detailed message: yes [...] documented as of this encounter Care Teams Boot Trimmer Relationship Specialty Start Date End Date Shayla Alford D.O. PCP - General Internal Medicine 05/22/[address] [phone] documented as of this encounter
--- OUTSIDE RECORDS SUMMARY | 2022-05-28 06:40 | XMS_ITS | Encounter Summary ---
:1945 Author Organization [facility] Address [address] [place] [address] Care Team Providers Name Role Phone Shayla Alford D.O. Primary Care Provider [phone] Encounter Details Date Type Department Care Team Description 04/18/2021 Hospital Encounter Department of [place] Chroni c Kidney Disease (CKD), Stage 3b Glomerular Filtration Rate (GFR) 30 To 44 (HCC); Laboratory Medicine nShayla D. O. Chronic Systolic (Congestive) Heart Fail ure (HCC); in [place], [address] Hypertension Es sential Primary [facility] [address] [place] [phone] Social History Tobacco Use [...] do you attend hinduism or Never 2021 congregation services? Do you [...] have completed or the highest Martin, MEd, LANDING MAN, [place]) degree you have received? Sex [...] NEEDLE, DIABETIC Yani Fine 30 0 [facility] disposable needles. For use with Insulin Pens, 4 times daily SYRINGE-NEEDLE,INSULIN,0 0 .5 ML (INSULIN SYRINGE [facility]) budesonide-formoteroL Inhale 2 puffs [...] City/State/ZIP Code Phon e Number [facility]- [address] [place] [address] [facility] [place] [address] [facility] [address] (ABNORMAL) Renal [...] eGFR-Black/Afri 47 (L) >=60 04/18/2021 OWAT can Danish mL/min/BSA 9:31 AM CDT Comment: ----ADDITIONAL INFORMATION---- Estimated GFR calculated using the 2009 CKD_EPI creatinine equation. eGFR Non-Black/ 40 (L) >=60 mL/min/BSA 04/18/2021 9:31 AM CDT OWAT Danish Comment: ----ADDITIONAL INFORMATION---- Estimated GFR calculated using [...] 04/18/20 4:31 Venous) CDT PM CDT Narrative [facility] - 04/18/2021 4:50 PM CDT Specimen Information: Specimen ID: [id number] Specimen Type: Blood Specimen Collection Start Date: 04/18/20 ??9:05 AM Specimen Received Date: 04/18/2021 ??4:3 1 PM Specimen ID: [id number] Specimen Type: Blood Specimen Collection Start Date: 04/18/20 ??9:05 AM Specimen Received Date: 04/18/2021 ??9:0 6 AM Meilssa Blackmon LAB BLOOD ADD-ON Performing Organization Address City/State/ZIP Code Phon e Number [facility]- [address] [place] [address] [place] [address] System in [place] [address] [place] [address] [facility] [address] (ABNORMAL) NT-Pro B-Type [...] City/State/ZIP Code Phon e Number [facility]- [address] [place] [address] [place] [address] System in [place] [address] (ABNORMAL) CBC with Differential, Blood (04/18/2021 9:05 AM CDT) [facility] Method Time Signature Hemoglobin 12.2 (L) [...] City/State/ZIP Code Phon e Number [facility]- [address] [address] [facility] [place] [address] System in [place] [address] [facility] documented in this encounter Visit Diagnoses Diagnosis Chronic Kidney Disease (CKD), Stage 3b G lomerular Filtration Rate (GFR) 30 To 44 (HCC) Chronic Systolic (Congestive) Heart Fail ure (HCC) Hypertension Essential Primary documented in this encounter Additional Health Concerns Assessment Noted Time PHQ-9 Depression Total Score: 18 04/28/2018 11:27 AM C DT documented as of this encounter Care Teams Cabin Outfitter Relationship Specialty Start Date End Date Shyala Alford D.O. PCP - General Internal Medicine 05/22/[address] [place] [phone] documented as of this encounter
--- OUTSIDE RECORDS SUMMARY | 2022-05-28 06:40 | XMS_ITS | Encounter Summary ---
:1945 Author Organization [facility] Address [address] [place] [address] Care Team Providers Name Role Phone Shayla Alford.OMauro Primary Care Provider [phone] Encounter Details Date Type Department Care Team Description 04/19/2021 Hospital Encounter Department of Radiology Matias muñiz, Pain Hip Left in [place], Aliciao suman Mcguire, D.O. [address] [place] [address] [place], [place] [phone] Social History Tobacco Use Types Packs/Day [...] do you attend congregation or Never 2021 yazidi services? Do you [...] have completed or the highest Martin, MEd, PROVIDER CONTRACTING CONSULTANT, CAYDEN) degree you have received? Sex [...] (FREESTYLE SOFYA) times a day. Use to [facility] scan Sofya sensor 5 times daily and [...] ([facility]) budesonide-formoteroL Inhale 2 puffs daily 0 10/0 [...] these can be found in the pharmacy [id number] Electronically signed by: Shayla Alford D.O. 04/19/21 [...] as of this encounter Care Teams Explosive Ordnance Disposal Manager Relationship Specialty Start Date End Date Shayla Alford D.O. PCP - General Internal Medicine 05/22/[address] [address] documented as of this encounter
--- OUTSIDE RECORDS SUMMARY | 2022-05-28 06:40 | XMS_ITS | Encounter Summary ---
:1945 Author Organization [facility] Address [address] [place] [address] Care Team Providers Name Role Phone Shayla Alford D.O. Primary Care Provider [phone] Reason for Visit Reason Comments Nurse Visit BP check Outpatient (Routine) - Closed Specialty Diagnoses / Procedures Referred By Contact Refer red To Contact Diagnoses Hypertension Essential Primary Shayla Alford [facility] Region D.O. [address] [address] Referral ID Status Reason Start Date Expiration Date Visits Requ ested Visits Authorized [id number] Closed 05/01/2021 05/01/2022 1 1 Encounter Details Date Type Department Care Team Description 05/02/2021 Nurse Only Department of Family Shayla Murillo D.OMauro [address] [phone] Nurse Visit (BP check) [facility] [place] Kayli Garcia, L.PMauroNMauro [address] [place] [address] Clinic, in [place] [address] [place] [phone] Social History Tobacco Use Types Packs/Day Years [...] do you attend tenriism or Never 2021 yazidism services? Do you [...] have completed or the highest Martin, MEd, HYDRAULIC AUTO JACK MECHANIC, CAYDEN) degree you have received? Sex [...] as of this encounter Care Teams Automotive Electrician Relationship Specialty Start Date End Date Shayla Alford D.O. PCP - General Internal Medicine 05/22/[address] [address] documented as of this encounter
--- OUTSIDE RECORDS SUMMARY | 2022-05-28 06:41 | XMS_ITS | Encounter Summary ---
:1945 Author Organization [facility] Address [address] [place] [address] Care Team Providers Name Role Phone Shayal Alford D.O. Primary Care Provider [phone] Reason for Visit Reason Comments consult request Encounter Details Date Type Department Care Team Description 03/09/2021 Clinical Jesus Cruz, consul t request Communication Center for Philip Todd Clinical Regeneration [address] [facility] in [place], [place] [address] [place] [address] [place], [place] [phone] [address] (Work) [phone] Social History Tobacco Use Types Packs/Day Years [...] have completed or the highest Martin, MEd, FOUNTAIN HELPER, CAYDEN) degree you have received? Sex Assigned at Date Recorded Male 05/21/2018 2:34 PM CDT documented as of this encounter Miscellaneous Notes Telephone Encounter - Erica iLn R.N. - 03/12/2021 4:16 PM CDT SUBJECTIVE [...] back to the [facility] failure Clinic in [place] for follow-up. Disposition/Recommendation: recommended continue engagement in [...] documented as of this encounter Care Teams Slicing Machine Feeder Relationship Specialty Start Date End Date Shayla Alford D.O. PCP - General Internal Medicine 05/22/20 [address], [place] [address] documented as of this encounter
--- OUTSIDE RECORDS SUMMARY | 2022-05-28 06:41 | XMS_ITS | Encounter Summary ---
:1945 Author Organization [facility] Address [address] [place] [address] Care Team Providers Name Role Phone Shayla Alford D.O. Primary Care Provider [phone] Encounter Details Date Type Department Care Team Description 03/02/2021 Clinical Communication Department of Internal Andrei Dejesus Medicine in [place], [place], [place].O Mauro [place] [address] [place] [phone] Social History Tobacco Use Types Packs/Day Years [...] do you attend lutheran or Never 2021 jewish services? Do you [...] have completed or the highest Martin, MEd, SOUBRETTE, CAYDEN) degree you have received? Sex Assigned [...] documented as of this encounter Care Teams Ammunition Specialist Relationship Specialty Start Date End Date Shayla Alford D.O. PCP - General Internal Medicine 05/22/[address] [phone] documented as of this encounter
--- OUTSIDE RECORDS SUMMARY | 2022-05-28 06:41 | XMS_ITS | Encounter Summary ---
:1945 Author Organization [facility] Address [address] [place] [address] Care Team Providers Name Role Phone Shayla Alford D.O. Primary Care Provider [phone] Encounter Details Date Type Department Care Team Description 03/02/2021 Clinical Communication Department of Internal Andrei Dejesus Medicine in [place], [place], [place].O Mauro [place] [address] [place] [phone] Social History Tobacco Use Types Packs/Day Years [...] do you attend alevism or Never 2021 restorationist services? Do you [...] completed or the highest Martin, MEd, FUR CLIPPER, CAYDEN) degree you have received? Sex Assigned [...] Invokana and chart notes faxed to the [place] in [place]. They were also wondering on the order for the home health nurse to come out once a week for a vitalscheck. They want it sent to [facility]. Telephone Encounter - Ai Tellez L.PMauroNMauro [...] for Communication: Patient calling Dr. Madrigal from [facility] wanted you aware that Jonnathan's NT PRO BNP is increased, almost double what it was and he wanted you to be aware. She also mentioned the Invokana is about $650.00 a month which it way too much for them to cover the cost - if you need him to be on Invokana or Trulicity that you should have Dr. Cline from the [place] order it for him andthen it is [...] documented as of this encounter Care Teams Plunger Shovel Operator Relationship Specialty Start Date End Date Shayla Alford D.O. PCP - General Internal Medicine 05/22/[address] [address] documented as of this encounter
--- OUTSIDE RECORDS SUMMARY | 2022-05-28 06:41 | XMS_ITS | Encounter Summary ---
:1945 Author Organization [facility] Address [address] [place] [address] Care Team Providers Name Role Phone Shayla Alford D.O. Primary Care Provider [phone] Reason for Referral Outpatient (Routine) - Closed Specialty Diagnoses / Procedures Referred By Contact Refer red To Contact Pulmonary Medicine Diagnoses Cough Unspecified Type Dyspnea Multifactorial Asthma Extrinsic Moderate (HCC) [facility] Tulio Mcguire [address] [place] [address] Referral ID Status Reason Start Date Expiration Date Visits V isits Requested Authorized [id number] Closed Specialty 03/02/2021 03/02/2022 1 1 Services Required Reason for Visit Reason Comments Post Hospital Follow-up CHF-exacerbation Appointment Request (Routine) - Closed Specialty Diagnoses / Procedures Referred By Contact Refer red To Contact Community Internal Medicine Referral ID Status Reason Start Date Expiration Date Visits Requ ested Visits Authorized [id number] Closed 02/27/2021 02/27/2022 1 1 Encounter Details Date Type Department Care Team Description 03/02/2021 Office Visit Department of Internal Rocío Di abetes Mellitus Type 2 Hyperglycemia (HCC) (Primary Dx); Medicine in [facility] Coleman Mcguire Cough; [place] [address] Dyspnea Multifactorial; [address] [place], [place] Asthma Extrinsic Moderate (H CC); [place] [address] Chronic Systolic (Congestive) Heart Fail ure (HCC); [address] Hypothyroidism; Pancreatitis Chronic Recurrent (HCC); [phone] 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 Do you [...] completed or the highest Martin, MEd, SENIOR COBOL DEVELOPER, CAYDEN) degree you have received? Sex [...] hospital follow-up. The patient [facility] to [facility] [place]] on 02/25/2021 for acute on chronicHFpEF and acute asthma exacerbation. Due to his hospitalization being in [place] his notes are not in our system [...] male who was hospitalized from 02/25/2021-02/26/2021 at [facility] [[place]] on 02/25/2021 for acute on chronic HFpEF and acute asthma exacerbation. Due to his hospitalization being in [place] his notes are not in our system [...] Hyperglycemia (HCC). PLAN: His provider at the [place] was interested in starting him on a [...] their behalf by Sarai Cason, a trained rn medical inpatient services. The creation of this recordis based on the scribe remotely listening to the visit and the provider's statements to them. This do cument has been checked and approved by the attending provider. Time spent 52 minutes Electronically signed by: Shayla Alford D.O. 03/02/21 6:02 PM CDT documented in this encounter Plan of Treatment Scheduled Referrals Name Type Priority Associated Diagnoses Order S [facility] Pulmonary Medicine Outpatient Referral Routine Cough Expected: - General consult Dyspnea 03/06/2021 , (clinic) Multifactorial Expires: Asthma Extrinsic 03/02/2024 Moderate (HCC) documented as of this encounter Results (ABNORMAL) CBC with Differential, Blood (03/02/2021 12:59 PM CDT) [facility] Method Time Signature Hemoglobin 11.9 (L) [...] Phon e Number [facility]- [address] [place] [address] [facility] [place] [address] System in [place] [address] DX Chest AP [...] documented as of this encounter Care Teams Ad Operations Intern Relationship Specialty Start Date End Date Shayla Alford D.O. PCP - General Internal Medicine 05/22/[address] [phone] documented as of this encounter
--- OUTSIDE RECORDS SUMMARY | 2022-05-28 06:41 | XMS_ITS | Encounter Summary ---
:[address] [facility] Address [address] [place] [address] Care Team Providers Name Role Phone Shayla Alford D.O. Primary Care Provider [phone] Reason for Visit Reason Comments Follow-up Encounter Details Date Type Department Care Team Description 03/02/2021 Patient Outreach Department of Erica Lin Follow -up Cardiovascular Medicine [place], [place] [phone] [address] [facility] (Work) [place] [address] Social History Tobacco Use Types Packs/Day [...] have completed or the highest Martin, MEd, BUSHING PRESS OPERATOR, CAYDEN) degree you have received? Sex Assigned at Date Recorded Male 05/21/2018 2:34 PM CDT documented as of this encounter Progress Notes Erica Lin, R.N. - 03/02/2021 1:16 PM CDT SUBJECTIVE CHIEF COMPLAINT / REASON FOR CALL Follow-up Information Discussed Labs drawn yesterday, 03/01/2021 revealed NT proBNP 4755, sodium 137, potassium 3.8, creatinine 1.56, BUN 42. Patient was seen at the [facility] by for post hospital follow-up(patient hospitalized in [place] during the [facility] [...] documented as of this encounter Care Teams Natural Science Curator Relationship Specialty Start Date End Date Shayla Alford D.O. PCP - General Internal Medicine 05/22/[address] [phone] documented as of this encounter
--- OUTSIDE RECORDS SUMMARY | 2022-05-28 06:41 | XMS_ITS | Encounter Summary ---
:1945 Author Organization [facility] Address [address] [place] [address] Care Team Providers Name Role Phone Shayla Alford D.O. Primary Care Provider [phone] Reason for Visit Reason Comments Post Hospital Follow-up Completed Encounter Details Date Type Department Care Team Description 02/27/2021 Clinical Communication [facility], J, R.N. Follow-up [facility], in [phone] ([facility]) [place], [place] (Work) [address] [place] [address] Social History Tobacco Use Types [...] do you attend mormon or Never 2021 adventism services? Do you [...] have completed or the highest Martin, MEd, CITY ADMINISTRATOR, CAYDEN) degree you have received? Sex [...] as of this encounter Care Teams Rn Diabetes Educator Relationship Specialty Start Date End Date Shayla Alford D.O. PCP - General Internal Medicine 05/22/20 [address], [place] [address] documented as of this encounter
--- OUTSIDE RECORDS SUMMARY | 2022-05-28 06:41 | XMS_ITS | Encounter Summary ---
:1945 Author Organization [facility] Address [address] [place] [address] Care Team Providers Name Role Phone Shayla Alford D.O. Primary Care Provider [phone] Encounter Details Date Type Department Care Team Description 03/21/2021 Hospital Encounter Department of [place] Nguyen [facility] Medication Laboratory Medicine n, Gianna Mcguire in [place], [address] [facility] [place] [phone] Social History Tobacco Use Types Packs/Day [...] have completed or the highest Martin, MEd, FITNESS SALES CONSULTANT, CAYDEN) degree you have received? Sex [...] times daily SYRINGE-NEEDLE,INSULIN,0.5 0 ML (INSULIN SYRINGE [facility]) azithromycin (ZITHROMAX) Take 1 tablet (500 5 [...] Phon e Number [facility]- [address] [place] [address] [place] [address] System in [place] [address] documented in this encounter Visit Diagnoses Diagnosis High Risk Medication documented in this encounter Additional Health Concerns Assessment Noted Time PHQ-9 Depression Total Score: 18 04/28/2018 11:27 AM C DT documented as of this encounter Care Teams Heel Seam Rubber Relationship Specialty Start Date End Date Shayla Alford D.O. PCP - General Internal Medicine 05/22/[address] [place] [address] documented as of this encounter
--- OUTSIDE RECORDS SUMMARY | 2022-05-28 06:41 | XMS_ITS | Encounter Summary ---
:1945 Author Organization [facility] Address [address] [place] [address] Care Team Providers Name Role Phone Shayla Alford D.O. Primary Care Provider Encounter Details Date Type Department Care Team Description 02/20/2021 Hospital Encounter Department of [place] Hypoth yroidism; Laboratory Medicine n, Gianna Mcguire Chronic Systolic (Congestive) Heart Fail ure (HCC) in [facility] [address] [address] [place] [address] Social History Tobacco Use [...] do you attend quaker or Never 2021 islam services? Do you [...] completed or the highest Martin, MEd, FIELD SERVICE MANAGER, CAYDEN) degree you have received? Sex [...] by mouth tabletIndications: daily. 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 [place] MICROSOMAL AB Routine 02/20/2021 11:06 Results for this EA/TPO AM CDT procedure are i n the results section. documented in this encounter Results (ABNORMAL) Thyroid Function [place] (02/20/2021 11:09 AM CDT) P athologist Signature TSH, Sensitive 7.0 (H) 0.3 - 4.2 02/20/2021 [place] mIU/L 12:45 PM CDT Specimen Anatomical Collection Method Collection Time Receive d Time (Source) Location / / Volume Laterality Blood (Blood, 02/20/2021 11:09 02/20/2021 Venous) AM CDT 11:15 AM CDT Manuel Evans M.D. LAB BLOOD ADD-ON Performing Organization Address City/State/ZIP Code Phon e Number [facility]- [address] [place] [address] [place] [address] System in [place] [address] T4 (Thyroxine), Free (02/20/2021 11:09 AM CDT) athologist Signature T4 (Thyroxine), 1.3 0.9 - 1.7 02/20/2021 OW Free, P ng/dL 11:51 AM CDT Comment: Biotin has been identified by the capri enriquez as a potential interfering substance. ??Higher concentr ations of biotin may be found in multivitamins, hair/nail supple ments, and workout supplements. ??If the result does not [facility] clinical observations, repeat testing after patient refrains fr om the use of supplements for at least 12 hours. Specimen Anatomical Collection Method Collection Time Receive d Time (Source) Location / / Volume Laterality Blood (Blood, 02/20/2021 11:09 02/20/2021 Venous) AM CDT 11:15 AM CDT Shayla Alford D.O. LAB BLOOD ADD-ON Performing Organization Address City/State/ZIP Code Phon e Number [facility]- [address] [place] [address] [facility] [place] [address] System in [place] [address] (ABNORMAL) T3 (Triiodothyronine), Free (02/20/2021 11:09 AM CDT) athologist Signature T3 2.5 (L) 2.8 - 4.4 02/20/2021 [facility] (Triiodothyron pg/mL 9:56 PM CDT ine), Free, S Specimen Anatomical Collection Method Collection Time Receive d Time (Source) Location / / Volume Laterality Blood (Blood, 02/20/2021 11:09 02/20/2021 9:08 Venous) AM CDT PM CDT Shayla Alford D.O. LAB BLOOD ADD-ON Performing Organization Address City/State/ZIP Code Phon e Number [facility] [address] [place] [address] [facility] [place] [address] Laboratory Medicine and Pathology [address] [...] Address City/State/ZIP Code Phon e Number [facility] - [address] [place], [place] [address] [facility] [address] [facility] [address] documented in this encounter Visit Diagnoses Diagnosis Hypothyroidism Chronic Systolic (Congestive) Heart Fail ure (HCC) documented in this encounter Additional Health Concerns Assessment Noted Time PHQ-9 Depression Total Score: 18 04/28/2018 11:27 AM C DT documented as of this encounter Care Teams Laborer Cutting Tool Relationship Specialty Start Date End Date Shayla Alford D.O. PCP - General Internal Medicine 05/22/[address] [place] [address] documented as of this encounter
--- OUTSIDE RECORDS SUMMARY | 2022-05-28 06:41 | XMS_ITS | Encounter Summary ---
:1945 Author Organization [facility] Address [address] [place] [address] Care Team Providers Name Role Phone Shayla Alford D.O. Primary Care Provider [phone] Encounter Details Date Type Department Care Team Description 02/21/2021 Clinical Communication [facility] and [address] [place] [address] Clinical [facility] in [place], [place] [address] [place] [address] [place] [address] (Work) [phone] Social History Tobacco Use Types Packs/Day Years [...] do you attend scientologist or Never 2021 tenriism services? Do you [...] completed or the highest Martin, MEd, POLICE SERVICE TECHNICIAN, CAYDEN) degree you have received? Sex Assigned at Date Recorded Male 05/21/2018 2:34 PM CDT documented as of this encounter Plan of Treatment Not on filedocumented as of this encounter Visit Diagnoses Not on filedocumented in this encounter Additional Health Concerns Assessment Noted Time PHQ-9 Depression Total Score: 18 04/28/2018 11:27 AM C DT documented as of this encounter Care Teams Transport Aide Relationship Specialty Start Date End Date Shayla Alford D.O. PCP - General Internal Medicine 05/22/20 [address] [place] [address] documented as of this encounter
--- OUTSIDE RECORDS SUMMARY | 2022-05-28 06:41 | XMS_ITS | Encounter Summary ---
:1945 Author Organization [facility] Address [address] [place] [address] Care Team Providers Name Role Phone Shayla Alford D.O. Primary Care Provider [phone] Reason for Visit Reason Comments Follow-up Encounter Details Date Type Department Care Team Description 03/09/2021 Clinical Communication Manuel Shabazz Follow-up Center for Pato Barber Transplantation and [address] [place] [address] Clinical [facility] in [place], [place] [address] [place] [address] [place] [address] (Work) [phone] Social History Tobacco Use Types Packs/Day Years [...] do you attend christian or Never 2021 oriental orthodox services? Do [...] have completed or the highest Martin, MEd, CODING TECHNICIAN, CAYDEN) degree you have received? Sex Assigned at Date Recorded Male 05/21/2018 2:34 PM CDT documented as of this encounter Plan of Treatment Not on filedocumented as of this encounter Visit Diagnoses Not on filedocumented in this encounter Additional Health Concerns Assessment Noted Time PHQ-9 Depression Total Score: 18 04/28/2018 11:27 AM C DT documented as of this encounter Care Teams Fisher Hand Line Relationship Specialty Start Date End Date Shayla Alford D.O. PCP - General Internal Medicine 05/22/[address] [phone] documented as of this encounter
--- OUTSIDE RECORDS SUMMARY | 2022-05-28 06:41 | XMS_ITS | Encounter Summary ---
:1945 Author Organization [facility] Address [address] [place] [address] Care Team Providers Name Role Phone Shayla Alford D.O. Primary Care Provider [phone] Reason for Visit Outpatient (Routine) - Closed Specialty Diagnoses / Procedures Referred By Contact Refer red To Contact Pulmonary Medicine Diagnoses Cough Unspecified Type Dyspnea Multifactorial Asthma Extrinsic Moderate (HCC) [facility] Shayla D.Sabrina [address], [place] [address] Referral ID Status Reason Start Date Expiration Date Visits V isits Requested Authorized [id number] Closed Specialty 03/02/2021 03/02/2022 1 1 Services Required Encounter Details Date Type Department Care Team Description 03/09/2021 Comprehensive Visit Division of [place], Cough; Pulmonary Medicine Pato Lr Dyspnea Multifactorial; in [place], [facility] [address] [facility] Asthma Extrinsic Moderate (HCC) [place], [place] [address] [facility] [address] [place], [place] [phone] [address] (Work) [phone] Social History Tobacco Use Types Packs/Day Years [...] do you attend zoroastrian or Never 2021 temple services? Do you [...] have completed or the highest Martin, MEd, OFFICE NURSE PRACTITIONER, CAYDEN) degree you have received? [...] SUBJECTIVE Referred by: Shayla Alford D.O. [address] [address] CHIEF COMPLAINT / REASON FOR VISIT Mr. [...] to an agent orange exposure in the [place]. He has been followed for his [...] [facility] due to balance problems and a fall [...] of this encounter Care Teams Senior Technical Writer Relationship Specialty Start Date End Date Shayla Alford D.O. PCP - General Internal Medicine 05/22/[address] [place] [address] documented as of this encounter
--- OUTSIDE RECORDS SUMMARY | 2022-05-28 06:41 | XMS_ITS | Encounter Summary ---
:1945 Author Organization [facility] Address [address] [place] [address] Care Team Providers Name Role Phone Shayla Alford D.O. Primary Care Provider [phone] Reason for Visit Reason Comments Cough Encounter Details Date Type Department Care Team Description 03/01/2021 Nurse Triage Department of Internal Kayli Cohn , Cough Medicine in [facility] [address] [facility] [address] [place] [phone] Social History Tobacco Use Types Packs/Day Years [...] do you attend buddhist or Never 2021 judaism services? Do you [...] have completed or the highest Martin, MEd, PARTICLE BOARD SUPERVISOR, CAYDEN) degree you have received? Sex [...] or 4 hours. Call your doctor (or AUTOMOTIVE TIRE TECHNICIAN/PA) now or as soon as the office [...] need to be seen. Your doctor (or AUTOMOTIVE TIRE TECHNICIAN/PA) will want to talk with you to [...] F (37.8 C) AND [2] bedridden (e.g., senior care patient, CVA, chronic illness, recovering from surgery) Protocols used: COUGH - ACUTE [id number] documented in this encounter Plan of Treatment Not on filedocumented as of this encounter Visit Diagnoses Not on filedocumented in this encounter Additional Health Concerns Assessment Noted Time PHQ-9 Depression Total Score: 18 04/28/2018 11:27 AM C DT documented as of this encounter Care Teams Cager Operator Relationship Specialty Start Date End Date Shayla Alford D.O. PCP - General Internal Medicine 05/22/[address] [place] [phone] documented as of this encounter
--- OUTSIDE RECORDS SUMMARY | 2022-05-28 06:41 | XMS_ITS | Encounter Summary ---
:1945 Author Organization [facility] Address [address] [place] [address] Care Team Providers Name Role Phone Shayla Alford D.O. Primary Care Provider [phone] Reason for Referral Outpatient (Routine) - Closed Specialty Diagnoses / Procedures Referred By Contact Refer red To Contact Diagnoses Chronic Systolic (Congestive) Heart Failure (HCC) Beat Premature Ventricular Manuel Evans M.D. [facility] Procedures ECG Heart Rhythm Monitor (Holter) [address] [place] [address] Referral ID Status Reason Start Date Expiration Date Visits Requ ested Visits Authorized [id number] Closed 02/01/2021 02/01/2022 1 1 Reason for Visit Outpatient (Routine) - Closed Specialty Diagnoses / Procedures Referred By Contact Refer red To Contact Diagnoses Chronic Systolic (Congestive) Heart Failure (HCC) Beat Premature Ventricular Manuel Evans M.D. [facility] Procedures ECG Heart Rhythm Monitor (Holter) [address] [place] [address] Referral ID Status Reason Start Date Expiration Date Visits Requ ested Visits Authorized [id number] Closed 02/01/2021 02/01/2022 1 1 Encounter Details Date Type Department Care Team Description 02/21/2021 Hospital Encounter Department of Cristina, Chronic Systolic (Congestive) Heart Failure (HCC); Cardiovascular Manuel Barber M.D. Beat Premature Ventricular Diseases in [place], [facility] [address] [place], [place] [address] [address] [place] [phone] [address] (Work) [phone] Social History Tobacco Use Types Packs/Day Years [...] do you attend tenriism or Never 2021 islam services? Do you [...] have completed or the highest Martin, MEd, AEROSPACE MEDICINE PHYSICIAN, CAYDEN) degree you have received? Sex [...] Diabetes Mellitus Type 2 Hyperglycemia ([facility]) isosorbide mononitrate Take 1 tablet (60 mg 0 11/201902/22/2021 (IMDUR) 60 mg 24 hr total) by mouth tabletIndications: daily. 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 Ventricular documented in this encounter Results HOLTER MONITOR - IN [facility] (02/21/2021 8:20 AM CDT) [facility] Method Time Signature Min Heart Rate 52 bpm HOLTER SENTINEL AF Count 0 count HOLTER SENTINEL SVE Max Per [id number] HOLTER Hour Time SENTINEL Tachycardia 0 count HOLTER Runs SENTINEL SVE Total 80 count HOLTER Beats SENTINEL Mean Heart 68 bpm HOLTER Rate SENTINEL SVT Runs 0 count HOLTER SENTINEL VT Runs 0 count HOLTER SENTINEL Bradycardia 0 count HOLTER Runs SENTINEL Min Heart Rate [id number] HOLTER Time SENTINEL Max Heart Rate [id number] HOLTER Time SENTINEL Max Heart Rate 93 bpm HOLTER SENTINEL SVE Max Per 11 count HOLTER Hour SENTINEL SVE Percent 0 percent HOLTER Beats SENTINEL Recording Date HOLTER SENTINEL VE Max Per [id number] HOLTER Hour Time SENTINEL Holter Pauses 0 [...] as of this encounter Care Teams Patient Consumer Marketer Relationship Specialty Start Date End Date Shayla Alford D.O. PCP - General Internal Medicine 05/22/[address] [address] documented as of this encounter
--- OUTSIDE RECORDS SUMMARY | 2022-05-28 06:41 | XMS_ITS | Encounter Summary ---
:1945 Author Organization [facility] Address [address] [place] [address] Care Team Providers Name Role Phone Shayla Alford D.O. Primary Care Provider [phone] Reason for Visit Reason Comments Follow-up Encounter Details Date Type Department Care Team Description 02/23/2021 Clinical Communication Department of Renan Linjayne Cardiovascular Medicine Erica Barber R.N. in [facility] [phone] [address] [facility] (Work) [place] [address] Social History Tobacco Use Types Packs/Day [...] do you attend adventist or Never 2021 zoroastrian services? Do you [...] have completed or the highest Martin, MEd, MORTGAGE LOAN REVIEWER, CAYDEN) degree you have received? Sex [...] up lab follow up for 03/01/2021 at [facility]. Mr. Costa , and his , Diallo-reviewed [...] PLAN Labs scheduled for 9:00 a.m. at [facility] on 03/01/2021. Patient reports he will pharmacy picking tech the prescriptions this morning from his local [...] failure. Biotin [facility] potential interfering substance. [...] e Number [facility]- [address] [place] [address] [place] [address] System in [place] [address] Sodium (03/01/2021 12:20 [...] City/State/ZIP Code Phon e Number [facility]- [address] [place] [address] [place] [address] System in [place] [address] Potassium (03/01/2021 12:20 [...] City/State/ZIP Code Phon e Number [facility]- [address] [place] [address] [facility] [place] [address] System in [place] [address] (ABNORMAL) Creatinine with Estimated GFR (03/01/2021 12:20 PM CDT) Analysis Performed At Patho logist Time Signature Creatinine 1.56 (H) 0.74 - 03/01/2021 [place] 1.35 mg/dL 12:59 PM CDT eGFR-Black/Afri 49 (L) >=60 03/01/2021 [facility] can [place] mL/min/BSA 12:59 PM CDT Comment: ----ADDITIONAL INFORMATION---- Estimated GFR calculated using the 2009 CKD_EPI creatinine equation. eGFR Non-Black/ 42 (L) >=60 mL/min/BSA 03/01/2021 12:59 PM CDT [facility] [place] Comment: ----ADDITIONAL INFORMATION---- Estimated GFR calculated using the 2009 CKD_EPI creatinine equation. Specimen Anatomical Collection Method Collection Time Receive d Time (Source) Location / / Volume Laterality Blood (Blood, 03/01/2021 12:20 03/01/2021 Venous) PM CDT 12:25 PM CDT Manuel Evans M.D. LAB BLOOD ADD-ON Performing Organization Address City/State/ZIP Code Phon e Number [facility]- [address] [place] [facility] [place] [address] [place] [address] System in [place] [address] (ABNORMAL) BUN (Blood Urea [...] M.D. LAB BLOOD ADD-ON Performing Organization Address City/[facility]/ZIP Code Phon e Number [facility]- [address] [place] [address] [facility] [place] [address] System in [place] [address] documented in this encounter Visit Diagnoses Diagnosis Chronic Systolic (Congestive) Heart Fail ure (HCC) - Primary documented in this encounter Additional Health Concerns Assessment Noted Time PHQ-9 Depression Total Score: 18 04/28/2018 11:27 AM C DT documented as of this encounter Care Teams Manager Oracle Database Relationship Specialty Start Date End Date Shayla Alford D.O. PCP - General Internal Medicine 05/22/[address] [place] [address] documented as of this encounter
--- OUTSIDE RECORDS SUMMARY | 2022-05-28 06:41 | XMS_ITS | Encounter Summary ---
:1945 Author Organization [facility] Address [address] [place] [address] Care Team Providers Name Role Phone Shayla Alford D.O. Primary Care Provider [phone] Reason for Visit Outpatient (Routine) - Closed Specialty Diagnoses / Procedures Referred By Contact Refer red To Contact Cardiovascular Disease Manuel Evans [place] M.D. [address] [place] [address] Referral ID Status Reason Start Date Expiration Date Visits Requ ested Visits Authorized [id number] Closed 02/01/2021 02/01/2022 1 1 Encounter Details Date Type Department Care Team Description 02/22/2021 Office Visit Department of Manuel Evans Chronic Sy stolic (Congestive) Heart Failure (HCC) (Primary Dx); Cardiovascular Medicine Pato Barber Beat Premature Ventricular; in [facility] peeled potato inspector 200 [facility] Chronic Kidney Disease (CKD), Stage 3b G lomerular Filtration Rate (GFR) 30 To 44 (HCC); [address] [place], [place] Diabetes Mellitus Type 2 Wit h Diabetic Neuropathy (HCC); [place] [address] Diabetes Mellitus Type 2 Hyperglycemia ( HCC); [id number] Hypertension Essential Prima ry; Hyperlipidemia; [phone] Hypothyroidism (Fax) Social History Tobacco Use Types [...] do you attend tenriism or Never 2021 anabaptism services? Do you [...] completed or the highest Martin, MEd, TRAIN CONTROLLER, CAYDEN) degree you have received? Sex Assigned [...] documented as of this encounter Care Teams Prn Physical Therapist Relationship Specialty Start Date End Date Shayla Alford D.O. PCP - General Internal Medicine 05/22/[address] [phone] documented as of this encounter
--- OUTSIDE RECORDS SUMMARY | 2022-05-28 06:41 | XMS_ITS | Encounter Summary ---
:1945 Author Organization [facility] Address [address] [place] [address] Care Team Providers Name Role Phone Shayla Alford D.OMauro Primary Care Provider [phone] Encounter Details Date Type Department Care Team Description 03/02/2021 Hospital Encounter Department of Alexys Cough; Laboratory Medicine Shayla queen, Dyspnea Multifactorial in [place], D.O. [place] [address] [place] [phone] Social History Tobacco Use Types Packs/Day [...] do you attend yazdanism or Never 2021 scientologist services? Do you [...] completed or the highest Martin, MEd, MANAGER OPERATIONS RESEARCH, CAYDEN) degree you have received? Sex Assigned [...] PEN NEEDLE, DIABETIC Yani Fine 30 0 [facility] disposable needles. For use with Insulin Pens, 4 times daily SYRINGE-NEEDLE,INSULIN,0 0 .5 ML (INSULIN SYRINGE [facility]) azithromycin (ZITHROMAX) Take 1 tablet (500 5 [...] with Differential, Blood (03/02/2021 12:59 PM CDT) [facility] Method Time Signature Hemoglobin 11.9 (L) [...] e Number [facility]- [address] [place] [address] [place] [address] System in [place] [address] [place] [address] documented in this encounter Visit Diagnoses Diagnosis Cough Unspecified Type Dyspnea Multifactorial documented in this encounter Additional Health Concerns Assessment Noted Time PHQ-9 Depression Total Score: 18 04/28/2018 11:27 AM C DT documented as of this encounter Care Teams Ear Pull Machine Operator Relationship Specialty Start Date End Date Shayla Alford D.O. PCP - General Internal Medicine 05/22/[address] [phone] documented as of this encounter
--- OUTSIDE RECORDS SUMMARY | 2022-05-28 06:41 | XMS_ITS | Encounter Summary ---
:1945 Author Organization [facility] Address [address] [place] [address] Care Team Providers Name Role Phone Shayla Alford D.O. Primary Care Provider [phone] Reason for Visit Reason Comments Follow-up Encounter Details Date Type Department Care Team Description 02/27/2021 Clinical Communication Department of Renan Linjayne Cardiovascular Medicine Erica Barber R.N. in [facility] [phone] [address] [facility] (Work) [place] [address] Social History Tobacco Use Types Packs/Day [...] have completed or the highest Martin, MEd, ROOF MECHANIC, CAYDEN) degree you have received? Sex [...] he was hospitalized over the weekend in [place] where his [facility] is located. He was hospitalized at [facility] and I am able to review the [...] hospitalization with his primary care provider in [place] on Friday03/02/2021. Lastly, patient reports that he [...] documented as of this encounter Care Teams Orange Picker Machine Operator Relationship Specialty Start Date End Date Shayla Alford D.O. PCP - General Internal Medicine 05/22/[address] [phone] documented as of this encounter
--- OUTSIDE RECORDS SUMMARY | 2022-05-28 06:41 | XMS_ITS | Encounter Summary ---
:1945 Author Organization [facility] Address [address] [place] [address] Care Team Providers Name Role Phone Shayla Alford D.O. Primary Care Provider [phone] Encounter Details Date Type Department Care Team Description 03/01/2021 Hospital Encounter Department of Manuel Evans Systolic Laboratory Medicine Pato Barber (Congestive) Heart in [place], [facility] [address] [facility] Failure (HCC) [place], [place] [address] [address] [employer], [place] [phone] [address] (Work) [phone] Social History Tobacco Use Types Packs/Day Years [...] have completed or the highest Martin, MEd, SWITCH OPERATOR, CAYDEN) degree you have received? Sex [...] supplements. ??If the result does not [facility] clinical observations, repeat testing after patient [...] Number [facility]- [address] [place] [address] [facility] [place] [address] System in [place] [address] Sodium (03/01/2021 12:20 PM [...] Number [facility]- [address] [place] [address] [facility] [place] [address] System in [place] [address] Potassium (03/01/2021 12:20 PM [...] Number [facility]- [address] [place] [address] [facility] [place] [address] System in [place] [address] (ABNORMAL) Creatinine with Estimated GFR (03/01/2021 12:20 PM CDT) Analysis Performed At Patho logist Time Signature Creatinine 1.56 (H) 0.74 - 03/01/2021 [facility] 1.35 mg/dL 12:59 PM CDT eGFR-Black/Afri 49 (L) >=60 03/01/2021 [facility] can [place] mL/min/BSA 12:59 PM CDT Comment: ----ADDITIONAL INFORMATION---- Estimated GFR calculated using the 2009 CKD_EPI creatinine equation. eGFR Non-Black/ 42 (L) >=60 mL/min/BSA 03/01/2021 12:59 PM CDT [facility] [place] Comment: ----ADDITIONAL INFORMATION---- Estimated GFR calculated using the 2009 CKD_EPI creatinine equation. Specimen Anatomical Collection Method Collection Time Receive d Time (Source) Location / / Volume Laterality Blood (Blood, 03/01/2021 12:20 03/01/2021 Venous) PM CDT 12:25 PM CDT Manuel Evans M.D. LAB BLOOD ADD-ON Performing Organization Address City/State/ZIP Code Phon e Number [facility]- [address] [place] [address] [place] [address] System in [place] [address] (ABNORMAL) BUN (Blood Urea [...] Code Phon e Number [facility]- [address] [place] [address] [place] [address] System in [place] [address] [facility] documented in this encounter Visit Diagnoses Diagnosis Chronic Systolic (Congestive) Heart Fail ure (HCC) documented in this encounter Additional Health Concerns Assessment Noted Time PHQ-9 Depression Total Score: 18 04/28/2018 11:27 AM C DT documented as of this encounter Care Teams Leaf Tinner Relationship Specialty Start Date End Date Shayla Alford D.O. PCP - General Internal Medicine 05/22/[address] [phone] documented as of this encounter
--- OUTSIDE RECORDS SUMMARY | 2022-05-28 06:41 | XMS_ITS | Encounter Summary ---
:1945 Author Organization [facility] Address [address] [place] [address] Care Team Providers Name Role Phone Shayla Alford D.O. Primary Care Provider [phone] Encounter Details Date Type Department Care Team Description 03/02/2021 Hospital Encounter Department of Alexys Diabete s Mellitus Type 2 Hyperglycemia (HCC); Radiology in , [facility], Cough; [place], [place] D.O. 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 Do you [...] have completed or the highest Martin, MEd, ADJUDICATION SPECIALIST, CAYDEN) degree you have received? Sex [...] as of this encounter Care Teams Food Service Helper Relationship Specialty Start Date End Date Shayla Alford D.O. PCP - General Internal Medicine 05/22/[address] [phone] documented as of this encounter
--- OUTSIDE RECORDS SUMMARY | 2022-05-28 06:41 | XMS_ITS | Encounter Summary ---
:1945 Author Organization [facility] Address [address] [place] [address] Care Team Providers Name Role Phone Shayla Alford D.O. Primary Care Provider [phone] Encounter Details Date Type Department Care Team Description 03/12/2021 Clinical Communication Department of Internal Andrei Dejesus Medicine in [place], [place], [place] Ma[place] [address] [place] [phone] Social History Tobacco Use Types Packs/Day Years [...] do you attend sikhism or Never 2021 mu-ism services? Do you [...] have completed or the highest Martin, MEd, SKETCH ARTIST, CAYDEN) degree you have received? Sex Assigned at Date Recorded Male 05/21/2018 2:34 PM CDT documented as of this encounter Miscellaneous Notes Telephone Encounter - Kayli Rivera L.PMauroNMauor - 03/14/2021 10:44 AM CDT Verbal provided. [...] documented as of this encounter Care Teams Etcher Printed Circuit Boards Relationship Specialty Start Date End Date Shayla Alford D.O. PCP - General Internal Medicine 05/22/20 [address] [place] [phone] documented as of this encounter
--- OUTSIDE RECORDS SUMMARY | 2022-05-28 06:41 | XMS_ITS | Encounter Summary ---
:1945 Author Organization [facility] Address [address] [place] [address] Care Team Providers Name Role Phone Shayla Alford D.O. Primary Care Provider [phone] Encounter Details Date Type Department Care Team Description 02/23/2021 Clinical Communication Department of Internal Andrei Dejesus Medicine in [place], [place], [place].O Ma[place] [address] [place] [phone] Social History Tobacco Use Types Packs/Day Years [...] do you attend druze or Never 2021 samaritan services? Do you [...] have completed or the highest Martin, MEd, SWING SAW OPERATOR, CAYDEN) degree you have received? Sex [...] medication. Patient stated that his provider in [place] changed his medications. Please call patient back [...] documented as of this encounter Care Teams Recovery Analyst Relationship Specialty Start Date End Date Shayla Alford D.O. PCP - General Internal Medicine 05/22/[address] [phone] documented as of this encounter
--- OUTSIDE RECORDS SUMMARY | 2022-05-28 06:41 | XMS_ITS | Encounter Summary ---
:1945 Author Organization [facility] Address [address] [place] [address] Care Team Providers Name Role Phone Shayla Alford D.O. Primary Care Provider [phone] Reason for Referral Outpatient (Routine) - Closed Specialty Diagnoses / Procedures Referred By Contact Refer red To Contact Nephrology and Melissa Ferrer [place] [facility] Hypertension M.BMauroBMauroS. [address] [place] [address] Referral ID Status Reason Start Date Expiration Date Visits Requ ested Visits Authorized [id number] Closed 04/12/2021 04/12/2022 1 1 Scheduling Instructions 2 pm please Outpatient (Routine) - Closed Specialty Diagnoses / Procedures Referred By Contact Refer red To Contact Diagnoses Chronic Kidney Disease (CKD), Stage 3b Glomerular Filtration Rate (GFR) 30 To 44 (HCC) Hypertension Essential Primary Melissa Ferrer M.B.B.S. [facility] Procedures US Kidneys with Renal Artery Doppler [address] [place] [address] Referral ID Status Reason Start Date Expiration Date Visits Requ ested Visits Authorized [id number] Closed 04/12/2021 04/12/2022 1 1 Reason for Visit Reason Comments Chronic Kidney Disease Hypertension Outpatient (Routine) - Closed Specialty Diagnoses / Procedures Referred By Contact Refer red To Contact Nephrology and Diagnoses Diabetes Mellitus Type 2 With Diabetic Chronic Kidney Disease Hyperglycemic (HCC) Chronic Kidney Disease (CKD), Stage 3b Glomerular Filtration Rate (GFR) 30 To 44 (HCC) Anemia In Chronic Kidney Disease [facility] Hypertension Tulio Mcguire [address] [place] [phone] Referral ID Status Reason Start Date Expiration Date Visits Requ ested Visits Authorized [id number] Closed 02/13/2021 02/13/2022 1 1 Encounter Details Date Type Department Care Team Description 04/12/2021 Comprehensive Visit Division of Prateek Ferrer Essential Primary (Primary Dx); Nephrology and Melissa, Diabetes Cleo itus Type 2 With Diabetic Chronic Kidney Disease Hyperglycemic (HCC); Hypertension in M.B.B.S. Chronic Kidney Disease (CKD), Stage 3b G lomerular Filtration Rate (GFR) 30 To 44 (HCC); [place], [place] [address] Anemia In Chronic Kidney Dis ease [address] [facility], [address] [place] [phone] Social History Tobacco Use Types Packs/Day Years [...] do you attend faith or Never 2021 confucianist services? Do you belong to any clubs or No 10/09/2021 organizations such as faith groups, unions, fraIn Flow or athletic groups, or school groups? How [...] have completed or the highest Martin, MEd, BRIQUETTING MACHINE OPERATOR, CAYDEN) degree you have received? [...] has struggled with obtaining this from the ID and he will reach out to his primary care physician so that this can be taken care of. I recommended that they also reach out to the ID diabetic specialist and get an appointment with [...] Its performance characteri stics were determined by [facility] in a manner co nsistent with CLIA [...] Organization Address City/State/ZIP Code Phon e Number [facility] - [address] [place], [place] [address] [facility] [place] [address] [facility] [address] (ABNORMAL) Urinalysis with [...] Organization Address City/State/ZIP Code Phon e Number [facility] - [address] [place], [place] [address] [facility] [place] [address] [facility] [address] [place] Kidneys with Renal [...] Organization Address City/State/ZIP Code Phon e Number [facility]- [address] [place], [place] [phone] [place] [address] LAB [facility] [place], [place] [id number] [place] [address] (ABNORMAL) Renal Function [...] eGFR-Black/Afri 47 (L) >=60 04/18/2021 OWAT can Lebanese mL/min/BSA 9:31 AM CDT Comment: ----ADDITIONAL INFORMATION---- Estimated GFR calculated using the 2009 CKD_EPI creatinine equation. eGFR Non-Black/ 40 (L) >=60 mL/min/BSA 04/18/2021 9:31 AM CDT OW[place] Lebanese Comment: ----ADDITIONAL INFORMATION---- Estimated GFR calculated using [...] 04/18/20 4:31 Venous) CDT PM CDT Narrative [facility] - 04/18/2021 4:50 PM CDT Specimen Information: Specimen ID: [id number] Specimen Type: Blood Specimen Collection Start Date: 04/18/20 ??9:05 AM Specimen Received Date: 04/18/2021 ??4:3 1 PM Specimen ID: [id number] Specimen Type: Blood Specimen Collection Start Date: 04/18/20 ??9:05 AM Specimen Received Date: 04/18/2021 ??9:0 6 AM Melissa Blackmon LAB BLOOD ADD-ON Performing Organization Address City/State/ZIP Code Phon e Number [facility]- [address] [place] [address] [place] [address] System in [place] [address] [place] [address] [facility] [address] (ABNORMAL) Albumin, Random, [...] Organization Address City/State/ZIP Code Phon e Number [facility]- [address] [place] [address] [place] [address] System in [place] [address] (ABNORMAL) Urinalysis with Microscopic: [...] 8.0 04/18/2021 9:23 AM CDT [place] Specific [place] Ari 1.009 1.001 - 1.035 04/18/2021 9:23 AM [...] Organization Address City/State/ZIP Code Phon e Number [facility]- [address] [address] [place] [address] System in [place] [facility] documented in this encounter Visit [...] as of this encounter Care Teams Computer Operations Specialist Relationship Specialty Start Date End Date Shayla Alford D.O. PCP - General Internal Medicine 05/22/202199 [place] [address] documented as of this encounter
--- OUTSIDE RECORDS SUMMARY | 2022-05-28 06:41 | XMS_ITS | Encounter Summary ---
:1945 Author Organization [facility] Address [address] [place] [address] Care Team Providers Name Role Phone Shayla Alford D.O. Primary Care Provider [phone] Reason for Referral Outpatient (Routine) - Closed Specialty Diagnoses / Procedures Referred By Contact Refer red To Contact [facility] [place] Alford SE, D.O. [address] [place] [phone] Referral ID Status Reason Start Date Expiration Date Visits Requ ested Visits Authorized [id number] Closed 03/14/2021 03/14/2022 1 1 Scheduling Instructions Diabetes type II, CHF , asthma Schedule one hour Reason for Visit Reason Comments Follow-up Outpatient (Routine) - Closed Specialty Diagnoses / Procedures Referred By Contact Refer anna To Contact [facility] ARMAAN Alford SE, D.O. [address] [place] [phone] Referral ID Status Reason Start Date Expiration Date Visits Requ ested Visits Authorized [id number] Closed 12/12/2020 12/12/2021 1 1 Encounter Details Date Type Department Care Team Description 03/14/2021 Office Visit Department of Internal Rocío sanders Kidney Disease (CKD), Stage 3b Glomerular Filtration Rate (GFR) 30 To 44 ([facility]) (Primary Dx); Medicine in [place], Shayla D .O. Chronic Systolic (Congestive) Heart Fail ure (HCC); [place] [address] Diabetes Mellitus Type 2 Hyperglycemia ( HCC); [address] [place], [place] Diabetes Mellitus Type 2 Wit h Diabetic Neuropathy (HCC); [place] [address] Hypertension Essential Primary; [address] Bronchitis Chronic Simple (H CC); Hyperlipidemia; [phone] Unsteadiness Ga it Disorder Non Orthopedic; (Fax) [...] do you attend faith or Never 2021 worship services? Do you [...] have completed or the highest Martin, MEd, ROUTE SERVICE MANAGER, CAYDEN) degree you have received? [...] a follow-up. The patient presented to the [facility] [[place], [place]] on 02/25/2021 for acute on chronicHFpEF and acute asthma exacerbation. Due to his hospitalization being in [place] his notes are not in our system [...] (HCC). PLAN: The patient presented to the [facility] [[place], [place]] on 02/25/2021 for acute on chronic HFpEF and acute asthma exacerbation. Due to his hospitalization being in [place] his notes are not in our system [...] Neuropathy (HCC). PLAN: His provider at the [place] was interested in starting him on a [...] behalf by Sarai Cason, a trained medical language specialist. The creation of this recordis based on the scribe remotely listening to the visit and the provider's statements to them. This do cument has been checked and approved by the attending provider. Time spent 32 minutes Electronically signed by: Shayla Alford D.O. 03/14/21 2:09 PM CDT documented in this encounter Plan of Treatment Scheduled Referrals Name Type Priority Associated Diagnoses Order S [facility] Internal Outpatient Referral Routine Ex [...] City/State/ZIP Code Phon e Number [facility]- [address] [place] [address] [place] [address] System in [place] [address] [facility] (ABNORMAL) CBC with Differential, Blood (04/18/2021 9:05 AM CDT) [facility] Method Time Signature Hemoglobin 12.2 (L) [...] Phon e Number [facility]- [address] [place] [address] [place] [address] System in [place] [address] [place] [address] documented in this encounter Visit Diagnoses Diagnosis [...] as of this encounter Care Teams Station Jailer Relationship Specialty Start Date End Date Shayla Alford D.O. PCP - General Internal Medicine 05/22/[address] [address] documented as of this encounter
--- OUTSIDE RECORDS SUMMARY | 2022-05-28 06:42 | XMS_ITS | Encounter Summary ---
:1945 Author Organization [facility] Address [address] [place] [address] Care Team Providers Name Role Phone Shayla Alford D.O. Primary Care Provider [phone] Encounter Details Date Type Department Care Team Description 02/01/2021 Clinical Communication Department of Internal Neto Wong, Medicine in [place] [address] [place] [address] Social History Tobacco Use Types Packs/Day [...] do you attend baptist or Never 2021 synagogue services? Do you [...] completed or the highest Martin, MEd, HOSPITAL RECEPTIONIST, CAYDEN) degree you have received? Sex Assigned at Date Recorded Male 05/21/2018 2:34 PM CDT documented as of this encounter Miscellaneous Notes Telephone Encounter - Yannick Raza L.P.N. - 02/01/2021 11:15 AM CDT Name of person contacted: Patient Relationship to patient: Not applicable Call back number: As listed in his chart Corn Grinder: Not applicable Information provided: Aware of lab results per DR. Wong bellperson/patient received and understood education/information provided: Yes bellperson/patient agreed to the Plan of Care: Yes [...] documented as of this encounter Care Teams Tobacco Packer Relationship Specialty Start Date End Date Shayla Alford D.O. PCP - General Internal Medicine 05/22/[address] [address] documented as of this encounter
--- OUTSIDE RECORDS SUMMARY | 2022-05-28 06:42 | XMS_ITS | Encounter Summary ---
:1945 Author Organization [facility] Address [address] [place] [address] Care Team Providers Name Role Phone Shayla Alford.OMauro Primary Care Provider [phone] Reason for Visit Reason Comments Form Review OSM Encounter Details Date Type Department Care Team Description 01/07/2021 Clinical Communication Department of Alexys marin Review (OSM) Internal Medicine in [place], [place] D.O. [address] [facility] [address] [place], [place] [phone] [address] Social History Tobacco Use Types Packs/Day [...] do you attend protestant or Never 2021 nondenominational services? Do you [...] completed or the highest Martin, MEd, UTILITY WORKER DRIVER, CAYDEN) degree you have received? Sex Assigned at Date Recorded Male 05/21/2018 2:34 PM CDT documented as of this encounter Miscellaneous Notes Telephone Encounter - Tari Crystal - 01/07/2021 2:19 PM CDT [facility] outside records have been uploaded into patient's [...] as of this encounter Care Teams Senior Linux Systems Administrator Relationship Specialty Start Date End Date Shayla Alford D.O. PCP - General Internal Medicine 05/22/20 [address] [place] [address] documented as of this encounter
--- OUTSIDE RECORDS SUMMARY | 2022-05-28 06:42 | XMS_ITS | Encounter Summary ---
:1945 Author Organization [facility] Address [address] [place] [address] Care Team Providers Name Role Phone Shayla Alford D.O. Primary Care Provider [phone] Encounter Details Date Type Department Care Team Description 02/06/2021 Clinical Communication Department of [facility] Kaushik Wong Medicine, [place] Pat[place] [facility], [address] [address] [place], [place] [phone] [address] (Work) [phone] Social History Tobacco Use Types Packs/Day Years [...] do you attend yazidism or Never 2021 orthodox services? Do you [...] have completed or the highest Martin, MEd, POWER LINEMAN TECHNICIAN, CAYDEN) degree you have received? Sex [...] documented as of this encounter Care Teams Bun Panner Relationship Specialty Start Date End Date Shayla Alford D.O. PCP - General Internal Medicine 05/22/[address] [address] documented as of this encounter
--- OUTSIDE RECORDS SUMMARY | 2022-05-28 06:42 | XMS_ITS | Encounter Summary ---
:1945 Author Organization [facility] Address [address] [place] [address] Care Team Providers Name Role Phone Shayla Alford D.O. Primary Care Provider [phone] Reason for Visit Reason Comments Follow-up 5 day follow up Other discuss grapefruit juice and information on COPD and who is to repeat colonoscopy Outpatient (Routine) - Closed Specialty Diagnoses / Procedures Referred By Contact Refer red To Contact Community Internal Xu Prescott M.D. [facility] Medicine [facility] [place] [address] Referral ID Status Reason Start Date Expiration Date Visits Requ ested Visits Authorized [id number] Closed 12/20/2020 12/20/2021 1 1 Encounter Details Date Type Department Care Team Description 12/25/2020 Office Visit Department of Xu Prescott M. D. Acute On Chronic Systolic (Congestive) H eart Failure (HCC) (Primary Dx); Internal Medicine in [address] [facility] [address] [facility] Chronic Kidney Disease (CKD), Stage 3b G lomerular Filtration Rate (GFR) 30 To 44 (HCC); [place] [address] Asthma Extrinsic Moderate (HCC); [address] [phone] Diabetes Mellitus Type 2 Hyp erglycemia (HCC) [place], [place] (Work) [address] [phone] Social History Tobacco Use Types Packs/Day Years [...] do you attend taoism or Never 2021 church services? Do you [...] have completed or the highest Martin, MEd, WALL SCRAPER, CAYDEN) degree you have received? Sex Assigned [...] CLINIC PROGRESS NOTE SUBJECTIVE LOCATION OF EXAM: [facility] CHIEF COMPLAINT/REASON FOR VISIT Chief Complaint [...] documented as of this encounter Care Teams Marriage And Family Social Worker Relationship Specialty Start Date End Date Shayla Alford D.O. PCP - General Internal Medicine 05/22/[address] [address] (work) documented as of this encounter
--- OUTSIDE RECORDS SUMMARY | 2022-05-28 06:42 | XMS_ITS | Encounter Summary ---
:1945 Author Organization [facility] Address [address] [place] [address] Care Team Providers Name Role Phone Shayla Alford D.O. Primary Care Provider [phone] Reason for Visit Reason Comments Follow-up 1 week Appointment Request (Routine) - Closed Specialty Diagnoses / Procedures Referred By Contact Refer red To Contact Family Medicine Referral ID Status Reason Start Date Expiration Date Visits Requ ested Visits Authorized [id number] Closed 01/30/2021 01/30/2022 1 1 Encounter Details Date Type Department Care Team Description 02/06/2021 Office Visit Department of Family Augustin Wong Acu te On Chronic Diastolic (Congestive) Heart Failure (HCC) (Primary Dx); Medicine, [facility], in [address] [address] [place], [place] [phone] [address] (Work) [phone] Social History Tobacco Use Types Packs/Day Years [...] do you attend orthodox or Never 2021 christianity services? Do you belong to any clubs or No 10/09/2021 organizations such as orthodox groups, [employer], [employer] or athletic groups, or school groups? [...] have completed or the highest Martin, MEd, OIL WELL CABLE TOOL DRILLER, CAYDEN) degree you have received? Sex Assigned [...] Master's degree (e.g., MA, MS, Martin, MEd, OIL WELL CABLE TOOL DRILLER, CAYDEN) Occupational History Employer: RETIRED Tobacco Use [...] than three times a week ??? Attends Hindu Services: Never ??? Active Member of Clubs [...] eGFR-Black/Afri 36 (L) >=60 02/06/2021 OWAT can [place] mL/min/BSA 2:00 PM CDT Comment: ----ADDITIONAL INFORMATION---- Estimated GFR calculated using the 2009 CKD_EPI creatinine equation. eGFR Non-Black/ 31 (L) >=60 mL/min/BSA 02/06/2021 2:00 PM CDT OWAT [place] Comment: ----ADDITIONAL INFORMATION---- Estimated GFR calculated using [...] Address City/State/ZIP Code Phon e Number [facility]- [address] [place] [address] [place] [address] System in [place] [address] [facility] documented in this encounter Visit Diagnoses Diagnosis Acute On Chronic Diastolic (Congestive) Heart Failure (HCC) - Primary Effusion Pleural documented in this encounter Additional Health Concerns Assessment Noted Time PHQ-9 Depression Total Score: 18 04/28/2018 11:27 AM C DT documented as of this encounter Care Teams Power Checker Relationship Specialty Start Date End Date Shayla Alford D.O. PCP - General Internal Medicine 05/22/[address] [place] [address] documented as of this encounter
--- OUTSIDE RECORDS SUMMARY | 2022-05-28 06:42 | XMS_ITS | Encounter Summary ---
:1945 Author Organization [facility] Address [address] [place] [address] Care Team Providers Name Role Phone Shayla Alford D.O. Primary Care Provider [phone] Encounter Details Date Type Department Care Team Description 12/27/2020 Hospital Encounter Department of Westley corley Obstructive Pulmonary Medicine n, Soraya Mcguire Pulmonary Disease in [place], [address] Without Exace rbation [facility] ([facility]) [address] [place] [address] Social History Tobacco Use Types [...] do you attend bahai or Never 2021 yarsani services? Do you [...] have completed or the highest Martin, MEd, PROMOTIONAL REPRESENTATIVE, CAYDEN) degree you have received? Sex [...] daily SYRINGE-NEEDLE,INSULIN,0. 0 5 ML (INSULIN SYRINGE [facility]) amiodarone (PACERONE) 200 Take 200 mg by [...] by mouth tabletIndications: daily. 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) ([facility]), Diabetes Mellitus Type 2 ([facility]), Hypertension Essential Primary levothyroxine (SYNTHROID, Take [...] City/State/ZIP Code Phon e Number [facility] documented in this encounter Visit Diagnoses Diagnosis Chronic Obstructive Pulmonary Disease Wi thout Exacerbation (HCC) documented in this encounter Additional Health Concerns Assessment Noted Time PHQ-9 Depression Total Score: 18 04/28/2018 11:27 AM C DT documented as of this encounter Care Teams Wireline Operator Relationship Specialty Start Date End Date Shayla Alford D.O. PCP - General Internal Medicine 05/22/20 [address] [place] [address] documented as of this encounter
--- OUTSIDE RECORDS SUMMARY | 2022-05-28 06:42 | XMS_ITS | Encounter Summary ---
:1945 Author Organization [facility] Address [address] [place] [address] Care Team Providers Name Role Phone Shayla Alford D.O. Primary Care Provider [phone] Reason for Referral Outpatient (Routine) - Closed Specialty Diagnoses / Procedures Referred By Contact Refer red To Contact Diagnoses Chronic Systolic (Congestive) Heart Failure (HCC) Beat Premature Ventricular Manuel Evans M.D. [facility] Procedures ECG Heart Rhythm Monitor (Holter) [address] [place] [address] Referral ID Status Reason Start Date Expiration Date Visits Requ ested Visits Authorized [id number] Closed 02/01/2021 02/01/2022 1 1 Outpatient (Routine) - Closed Specialty Diagnoses / Procedures Referred By Contact Refer anna To Contact Cardiovascular Disease Manuel Evans [facility] Felicita Whyte [address] [place] [address] Referral ID Status Reason Start Date Expiration Date Visits Requ ested Visits Authorized [id number] Closed 02/01/2021 02/01/2022 1 1 Reason for Visit Reason Comments Questioning amiodarone dose/wants 3-month appt Encounter Details Date Type Department Care Team Description 01/31/2021 Clinical Department of Shona Evans Cardiovascular Manuel Barber amiodarone Medicine in M.D. dose/wants 3-month [place], [place] 200 [facility] appt [address] [place] [address] [phone] Social History Tobacco Use Types Packs/Day Years [...] do you attend yazidi or Never 2021 catholic services? Do you [...] have completed or the highest Martin, MEd, CAFE ASSOCIATE, CAYDEN) degree you have received? Sex [...] expects communication via portal: No Phone number: [phone] Request topic and what needs to be [...] encounter Results HOLTER MONITOR - IN CLINIC SENIOR SCRUM MASTER (02/21/2021 8:20 AM CDT) [facility] gist Method Time Signature Min Heart Rate 52 bpm HOLTER SENTINEL AF Count 0 count HOLTER SENTINEL SVE Max Per [id number] HOLTER Hour Time SENTINEL Tachycardia 0 count HOLTER Runs SENTINEL SVE Total 80 count HOLTER Beats SENTINEL Mean Heart 68 bpm HOLTER Rate SENTINEL SVT Runs 0 count HOLTER SENTINEL VT Runs 0 count HOLTER SENTINEL Bradycardia 0 count HOLTER Runs SENTINEL Min Heart Rate [id number] HOLTER Time SENTINEL Max Heart Rate [id number] HOLTER Time SENTINEL Max Heart Rate 93 bpm HOLTER SENTINEL SVE Max Per 11 count HOLTER Hour SENTINEL SVE Percent 0 percent HOLTER Beats SENTINEL Recording Date [id number] HOLTER SENTINEL VE Max Per [id number] HOLTER Hour Time SENTINEL Holter Pauses 0 [...] SENTINEL HOLTER SENTINEL NA (ABNORMAL) Thyroid Function [place] (02/20/2021 11:09 AM CDT) P athologist Signature [...] [facility] [address] [place] [address] [place] [address] System in [place] [address] documented in this encounter Visit Diagnoses Diagnosis Chronic Systolic (Congestive) Heart Fail ure (HCC) - Primary Beat Premature Ventricular Hypothyroidism documented in this encounter Additional Health Concerns Assessment Noted Time PHQ-9 Depression Total Score: 18 04/28/2018 11:27 AM C DT documented as of this encounter Care Teams Wheel Filler Relationship Specialty Start Date End Date Shayla Alford D.O. PCP - General Internal Medicine 05/22/[address] [place] [address] documented as of this encounter
--- OUTSIDE RECORDS SUMMARY | 2022-05-28 06:42 | XMS_ITS | Encounter Summary ---
:1945 Author Organization [facility] Address [address] [place] [address] Care Team Providers Name Role Phone Shayla Alford D.O. Primary Care Provider [phone] Encounter Details Date Type Department Care Team Description 01/11/2021 Hospital Encounter Department of José Luis Alford thyroidism Laboratory Medicine in Gianna Mcguire [place], [place] [address] [place] [phone] Social History Tobacco Use Types [...] you attend latter day or Never 2021 spiritism services? Do you [...] have completed or the highest Martin, MEd, SOLE SEAMER, CAYDEN) degree you have received? Sex Assigned [...] Code Phon e Number [facility] [address] [place] [address] [place] [address] System in [place] [address] documented in this encounter Visit Diagnoses Diagnosis Hypothyroidism documented in this encounter Additional Health Concerns Assessment Noted Time PHQ-9 Depression Total Score: 18 04/28/2018 11:27 AM C DT documented as of this encounter Care Teams Hvac Operations Technician Relationship Specialty Start Date End Date Shayla Alford D.O. PCP - General Internal Medicine 05/22/[address] [place] [address] documented as of this encounter
--- OUTSIDE RECORDS SUMMARY | 2022-05-28 06:42 | XMS_ITS | Encounter Summary ---
:1945 Author Organization [facility] Address [address] [place] [address] Care Team Providers Name Role Phone Shayla Alford D.O. Primary Care Provider [phone] Reason for Visit Reason Comments Doctor requesting to discuss patient with you Encounter Details Date Type Department Care Team Description 01/30/2021 Clinical Division of Ailyn Sims Doctor shadia Duque M.D. to discuss patient Medicine in [address] [place] [address] with you [facility] [address] [place] [address] [place], [place] (Work) [phone] Social History Tobacco Use Types Packs/Day Years [...] do you attend protestant or Never 2021 buddhism services? Do you [...] have completed or the highest Martin, MEd, SIGN MAINTENANCE, CAYDEN) degree you have received? Sex Assigned [...] documented as of this encounter Care Teams Pharmacology Professor Relationship Specialty Start Date End Date Shayla Alford D.O. PCP - General Internal Medicine 05/22/202199 [facility] [place] [address] documented as of this encounter
--- OUTSIDE RECORDS SUMMARY | 2022-05-28 06:42 | XMS_ITS | Encounter Summary ---
:1945 Author Organization [facility] Address [address] [place] [address] Care Team Providers Name Role Phone Shayla Alford D.O. Primary Care Provider [phone] Encounter Details Date Type Department Care Team Description 01/31/2021 Clinical Communication Department of [facility] Kaushik Wong Medicine, [place] [facility], [address] [address] [place], [place] [phone] (Work) [phone] Social History Tobacco Use Types Packs/Day Years [...] do you attend restoration or Never 2021 uatsdin services? Do you [...] have completed or the highest Martin, MEd, CHANGE AGENT, CAYDEN) degree you have received? Sex [...] documented as of this encounter Care Teams Dump Motor Operator Relationship Specialty Start Date End Date Shayla Alford D.O. PCP - General Internal Medicine 05/22/20 [address], [place] [address] documented as of this encounter
--- OUTSIDE RECORDS SUMMARY | 2022-05-28 06:42 | XMS_ITS | Encounter Summary ---
:1945 Author Organization [facility] Address [address] [place] [address] Care Team Providers Name Role Phone Shayla Alford D.O. Primary Care Provider [phone] Reason for Visit Reason Comments Shortness of Breath Has been going on for about a year but worse over the past 3 weeks, no head aches or dizz iness, he has balance issues. He states that his lungs just d ont feel like they have the capacity to take in enough oxygen. He has seen a furnace reliner and they said his lungs are good. He wonders if it may be his heart. He has also been more tired tracy n usual. Appointment Request (Routine) - Closed Specialty Diagnoses / Procedures Referred By Contact Refer red To Contact Referral ID Status Reason Start Date Expiration Date Visits Requ ested Visits Authorized [id number] Closed 01/30/2021 01/30/2022 1 1 Encounter Details Date Type Department Care Team Description 01/30/2021 Office Visit Department of [facility] Augustin Wong Fai lushadia Heart ([facility]) (Primary Dx); Cadence Fleming M.D. Anemia; Clinic, in [address] Acute On Chronic Systolic (Congestive) H eart Failure ([facility]); 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); [address] [address] Effusion Pleural; [place], [place] [phone] Asthma Exacerb ation ([facility]); [phone] (Work) Diabetes Mellitus Type 2 Hyperglycemia ( [facility]); [phone] Hyperlipidemia; (Fax) Pancreatitis Ch ronic Recurrent (HCC); [...] do you attend pentecostalism or Never 2021 catholic services? Do you [...] have completed or the highest Martin, MEd, SORTER UPHOLSTERY PARTS, CAYDEN) degree you have received? Sex Assigned [...] Master's degree (e.g., MA, MS, Martin, MEd, SORTER UPHOLSTERY PARTS, CAYDEN) Occupational History Employer: RETIRED Tobacco Use [...] than three times a week ??? Attends Restoration Services: Never ??? Active Member of [employer] [...] been progressively getting worse. I called his furnace reliner office- Dr. Sims to get his recommendation [...] eGFR-Black/Afri 47 (L) >=60 01/30/2021 [place] can [place] mL/min/BSA 6:34 PM CDT Comment: ----ADDITIONAL INFORMATION---- Estimated GFR calculated using the 2009 CKD_EPI creatinine equation. eGFR Non-Black/ 41 (L) >=60 mL/min/BSA 01/30/2021 6:34 PM CDT OW[place] Comment: ----ADDITIONAL INFORMATION---- Estimated GFR [...] City/State/ZIP Code Phon e Number [facility]- [address] [place] [address] [facility] [place] [address] System in [place] [address] (ABNORMAL) CBC with Differential, Blood (01/30/2021 2:57 PM CDT) [facility] Method Time Signature Hemoglobin 10.7 (L) 13.2 [...] Organization Address City/State/ZIP Code Phon e Number [place] [address] [place] [address] [facility] [place] [address] [address] documented in this encounter Visit [...] as of this encounter Care Teams Acid Correction Hand Relationship Specialty Start Date End Date Shayla Alford D.O. PCP - General Internal Medicine 05/22/[address] [address] documented as of this encounter
--- OUTSIDE RECORDS SUMMARY | 2022-05-28 06:42 | XMS_ITS | Encounter Summary ---
:1945 Author Organization [facility] Address [address] [place] [address] Care Team Providers Name Role Phone Shayla Alford D.O. Primary Care Provider [phone] Encounter Details Date Type Department Care Team Description 01/30/2021 Clinical Communication Department of Internal Andrei Dejesus Medicine in [place], [place], [place] [address] [place] [phone] Social History Tobacco Use Types Packs/Day Years [...] do you attend samaritan or Never 2021 yazidism services? Do you [...] have completed or the highest Martin, MEd, CERTIFIED MEDICAL CODING SPECIALIST, [place]) degree you have received? Sex [...] He made an appointment to see a [place] provider today and will then follow up [...] documented as of this encounter Care Teams Delicatessen Store Manager Relationship Specialty Start Date End Date Shayla Alford D.O. PCP - General Internal Medicine 05/22/[address] [address] documented as of this encounter
--- OUTSIDE RECORDS SUMMARY | 2022-05-28 06:42 | XMS_ITS | Encounter Summary ---
:1945 Author Organization [facility] Address [address] [place] [address] Care Team Providers Name Role Phone Shayla Alford D.O. Primary Care Provider [phone] Reason for Referral MRI/CAT/PET Scan (Routine) - Closed Specialty Diagnoses / Procedures Referred By Contact Refer red To Contact Radiology Diagnoses Pancreatitis Chronic (HCC) Emil Zurita M.D. [facility] Procedures MR Abdomen MRCP without IV Contrast [address] [place], [place] [address] Referral ID Status Reason Start Date Expiration Date Visits Requ ested Visits Authorized [id number] Closed 12/07/2020 12/07/2021 1 1 Reason for Visit MRI/CAT/PET Scan (Routine) - Closed Specialty Diagnoses / Procedures Referred By Contact Refer red To Contact Radiology Diagnoses Pancreatitis Chronic (HCC) Emil Zurita M.D. [facility] Procedures MR Abdomen MRCP without IV Contrast [address] [place], [place] [address] Referral ID Status Reason Start Date Expiration Date Visits Requ ested Visits Authorized [id number] Closed 12/07/2020 12/07/2021 1 1 Encounter Details Date Type Department Care Team Description 01/19/2021 Hospital Encounter Department of Camilla Zurita Chronic Radiology, Leanne Stein M.D. ([facility]) Building, in [address] [place] [address] [place] [address] [place], [place] [phone] (Work) [phone] Social History Tobacco Use Types Packs/Day Years [...] do you attend catholic or Never 2021 sikhism services? Do you [...] have completed or the highest Martin, MEd, ORTHOPEDIC SHOE MAKER, CAYDEN) degree you have received? Sex [...] [facility]), Diabetes Mellitus Type 2 ([facility]), Hypertension Essential Primary levothyroxine (SYNTHROID, [...] an independent workstation as ordered by rachel efng treating provider and reviewed by the radiologist [...] documented as of this encounter Care Teams Resp Ther Relationship Specialty Start Date End Date Shyala Alford D.O. PCP - General Internal Medicine 05/22/[address] [address] documented as of this encounter
--- OUTSIDE RECORDS SUMMARY | 2022-05-28 06:42 | XMS_ITS | Encounter Summary ---
:1945 Author Organization [facility] Address [address] [place] [address] Care Team Providers Name Role Phone Shayla Alford D.O. Primary Care Provider Reason for Referral Outpatient (Routine) - Closed Specialty Diagnoses / Procedures Referred By Contact Refer red To Contact Community Internal Diagnoses Effusion Pleural [facility] [place] Mcguire [address] [place] [address] Referral ID Status Reason Start Date Expiration Date Visits Requ ested Visits Authorized [id number] Closed 02/13/2021 02/13/2022 12 12 Outpatient (Routine) - Closed Specialty Diagnoses / Procedures Referred By Contact Refer anna To Contact Nephrology and Diagnoses Diabetes Mellitus Type 2 With Diabetic Chronic Kidney Disease Hyperglycemic (HCC) Chronic Kidney Disease (CKD), Stage 3b Glomerular Filtration Rate (GFR) 30 To 44 (HCC) Anemia In Chronic Kidney Disease [facility] Hypertension Tulio Mcguire [address] [place] [address] Referral ID Status Reason Start Date Expiration Date Visits Requ ested Visits Authorized [id number] Closed 02/13/2021 02/13/2022 1 1 Reason for Visit Reason Comments Fatigue Leg Swelling Appointment Request (Routine) - Closed Specialty Diagnoses / Procedures Referred By Contact Refer red To Contact Community Internal Medicine Referral ID Status Reason Start Date Expiration Date Visits Requ ested Visits Authorized [id number] Closed 01/30/2021 01/30/2022 1 1 Encounter Details Date Type Department Care Team Description 02/13/2021 Office Visit Department of [place]ío Hyperlipide peter (Primary Dx); Internal Medicine Sahyla larry D. O. Stroke (HCC); [place] [employer], [place] [address] Hypertension Essential Primary; [address] [place], [place] Diabetes Mellitus Type 2 Wit h Diabetic Chronic Kidney Disease Hyperglycemic ([facility]); [place] [address] Chronic Kidney Disease (CKD), Stage 3b G lomerular Filtration Rate (GFR) 30 To 44 ([facility]); [address] Anemia In Chronic Kidney Dis ease; Effusion Pleural; [phone] Hypothyroidism; (Fax) Asthma Extrinsi c Moderate ([facility]); Chronic Systoli c (Congestive) Heart Failure ([facility]) Social History Tobacco Use Types Packs/Day Years [...] do you attend taoist or Never 2021 zoroastrian services? Do you [...] have completed or the highest Martin, MEd, ADVENTURE EDUCATION TEACHER, CAYDEN) degree you have received? [...] the patient has been following at the [facility] with endocrinology. Patient's hemoglobin A1c has dropped to 7.9. He will continue taking Lantus 30 units at bedtime, NovoLog 11 units subQ t.i.d. he does have a STARFACEyle Sofya system which has allowed better control of blood glucose especially, with the patient's variations in his blood sugar readings. blood pressure has been within good control, 131/80. Currently, on Imdur 60 mg daily, and dhbovzoohw87 mg daily. As well as, hydralazine 25 [...] The patient, received as additional diuresis through [facility]. Jonnathan Costa has, history of chronic [...] Currently, on Imdur 60 mg daily, and hekbydsxlo93 mg daily. As well as, hydralazine 25 [...] the patient has been following at the [facility] with endocrinology. Patient's hemoglobin A1c has dropped to 7.9. He will continue taking Lantus 30 units at bedtime, NovoLog 11 units subQ t.i.d. he does have a HD Fantasy Football Sofya system which has allowed better control [...] The patient, received as additional diuresis through [facility]. Other orders - Hemoglobin A1c; Future; [...] Type Priority Associated Diagnoses [facility] and Outpatient Routine Diabetes Mellitus Expected : Hypertension - Referral Type 2 With Diabetic 02/14, Chronic kidney Chronic Kidney Expires: disease consult Disease 02/14/2024 (clinic) Hyperglycemic (H CC) Chronic Kidney Disease (CKD), Stage 3b Glomerular Filtration Rate (GFR) 30 To 44 ( HCC) Anemia In Chronic Kidney Disease Community Internal Outpatient Routine every 3 m [facility] office [facility] starting 02/13/2021 unti [...] eGFR-Black/Afri 37 (L) >=60 02/13/2021 [place] can [place] mL/min/BSA 10:43 AM CDT Comment: ----ADDITIONAL INFORMATION---- Estimated GFR calculated using the 2009 CKD_EPI creatinine equation. eGFR Non-Black/ 32 (L) >=60 mL/min/BSA 02/13/2021 10:43 AM CDT [facility] Stat[place] Comment: ----ADDITIONAL INFORMATION---- Estimated GFR calculated using [...] Code Phon e Number [facility]- [address] [place] [address] [place] [address] System in [place] [address] (ABNORMAL) Hemoglobin A1c (02/13/2021 [...] City/State/ZIP Code Phon e Number [facility]- [address] [place] [address] [facility] [place] [address] System in [place] [address] DX Chest AP [...] documented as of this encounter Care Teams Muffler Installer Relationship Specialty Start Date End Date Shayla Alford D.O. PCP - General Internal Medicine 05/22/[address] [phone] documented as of this encounter
--- OUTSIDE RECORDS SUMMARY | 2022-05-28 06:42 | XMS_ITS | Encounter Summary ---
:1945 Author Organization [facility] Address [address] [place] [address] Care Team Providers Name Role Phone Shayla Alford D.O. Primary Care Provider [phone] Encounter Details Date Type Department Care Team Description 02/13/2021 Hospital Encounter Department of Alexys Diabete s Mellitus Type 2 With Diabetic Chronic Kidney Disease Hyperglycemic (HCC); Laboratory Medicine Shayla queen, Chronic Kidney Disease (CKD), Stage 3b Glomerular Filtration Rate (GFR) 30 To 44 (HCC); in Tulio Dixon Anemia In Chronic Kidney Disease [place] [address] [facility] [place] [phone] Social History Tobacco Use Types Packs/Day Years [...] have completed or the highest Martin, MEd, SHOE COBBLER, CAYDEN) degree you have received? Sex Assigned [...] by mouth tabletIndications: daily. 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 Chronic Kidney Disease [...] eGFR-Black/Afri 37 (L) >=60 02/13/2021 OWAT can [place] mL/min/BSA 10:43 AM CDT Comment: ----ADDITIONAL INFORMATION---- Estimated GFR calculated using the 2009 CKD_EPI creatinine equation. eGFR Non-Black/ 32 (L) >=60 mL/min/BSA 02/13/2021 10:43 AM CDT OW[facility] [place] Comment: ----ADDITIONAL INFORMATION---- Estimated GFR calculated using [...] Code Phon e Number [facility]- [address] [place] [address] [facility] [place] [address] System in [place] [address] (ABNORMAL) Hemoglobin A1c (02/13/2021 [...] Code Phon e Number [facility]- [address] [place] [address] [facility] [place] [address] System in [place] [address] documented in this encounter Visit [...] as of this encounter Care Teams Community Outreach Advocate Relationship Specialty Start Date End Date Shayla Alford D.O. PCP - General Internal Medicine 05/22/202199 [place] [address] documented as of this encounter
--- OUTSIDE RECORDS SUMMARY | 2022-05-28 06:42 | XMS_ITS | Encounter Summary ---
:1945 Author Organization [facility] Address [address] [place] [address] Care Team Providers Name Role Phone Shyala Alford D.O. Primary Care Provider [phone] Encounter Details Date Type Department Care Team Description 02/15/2021 Clinical Communication Department of Internal Andrei Dejesus Medicine in [place], [place], [place] [address] [place] [phone] Social History Tobacco Use Types Packs/Day Years [...] do you attend hinduism or Never 2021 yarsanism services? Do you [...] completed or the highest Martin, MEd, SUPERVISOR EDGING, CAYDEN) degree you have received? Sex Assigned [...] documented as of this encounter Care Teams Sharepoint Web Developer Relationship Specialty Start Date End Date Shayla Alford D.O. PCP - General Internal Medicine 05/22/202199 [address] [address] documented as of this encounter
--- OUTSIDE RECORDS SUMMARY | 2022-05-28 06:42 | XMS_ITS | Encounter Summary ---
:1945 Author Organization [facility] Address [address] [place] [address] Care Team Providers Name Role Phone Shayla Alford D.O. Primary Care Provider Encounter Details Date Type Department Care Team Description 01/30/2021 Hospital Encounter Department of Augustin Wong [facility] Heart (HCC); Laboratory Medicine Pato Duque Anemia in [facility] [address] [place], [place] 300 [facility] [address] [place], [place] [phone] [address] (Work) [phone] Social History Tobacco Use Types Packs/Day Years [...] do you attend rastafari or Never 2021 religion services? Do you [...] have completed or the highest Martin, MEd, CRATE OPENER, CAYDEN) degree you have received? Sex [...] by mouth tabletIndications: daily. 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 eGFR Non-Black/ 41 (L) >=60 mL/min/BSA 01/30/2021 6:34 PM CDT [place] Comment: ----ADDITIONAL INFORMATION---- Estimated GFR [...] e Number [facility]- [address] [place] [address] [place] [address] System in [place] [facility] (ABNORMAL) CBC with Differential, Blood (01/30/2021 2:57 PM CDT) [facility] Method Time Signature Hemoglobin 10.7 (L) [...] Organization Address City/State/ZIP Code Phon e Number [address] [place] [address] [facility] [place] [address] System in [address] documented in this encounter Visit Diagnoses Diagnosis Failure Heart (HCC) Anemia documented in this encounter Additional Health Concerns Assessment Noted Time PHQ-9 Depression Total Score: 18 04/28/2018 11:27 AM C DT documented as of this encounter Care Teams Purchase Request Editor Relationship Specialty Start Date End Date Shayla Alford D.O. PCP - General Internal Medicine 05/22/20 [address], [place] [address] documented as of this encounter
--- OUTSIDE RECORDS SUMMARY | 2022-05-28 06:42 | XMS_ITS | Encounter Summary ---
:1945 Author Organization [facility] Address [address] [place] [address] Care Team Providers Name Role Phone Shayla Alford D.O. Primary Care Provider [phone] Encounter Details Date Type Department Care Team Description 02/13/2021 Hospital Encounter Department of Charmaine Alford Pleural Radiology in [place], D. [place] [address] [place] [phone] Social History Tobacco Use [...] do you attend congregation or Never 2021 sabianist services? Do you [...] have completed or the highest Martin, MEd, FAGOTING MACHINE OPERATOR, CAYDEN) degree you have received? [...] by mouth tabletIndications: daily. 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 Procedure Note Russle Grayson M.D. - 02/13/2021Formattin g of this [...] documented as of this encounter Care Teams Injection Molding Supervisor Relationship Specialty Start Date End Date Shayla Alford D.O. PCP - General Internal Medicine 05/22/[address] [phone] documented as of this encounter
--- OUTSIDE RECORDS SUMMARY | 2022-05-28 06:42 | XMS_ITS | Encounter Summary ---
:1945 Author Organization [facility] Address [address] [place] [address] Care Team Providers Name Role Phone Shayla Alford D.O. Primary Care Provider [phone] Reason for Visit Reason Comments Pancreas Results Encounter Details Date Type Department Care Team Description 01/31/2021 Clinical Division of Parminder Pancreas (Resul ts) Communication Gastroenterology in [place], [place] M.D. [address] [facility] [address] [place] [address] [place] [address] Social History Tobacco Use Types Packs/Day Years [...] do you attend faith or Never 2021 anglican services? Do you [...] or the highest Martin, MEd, DIRECTOR OF CURRICULUM, CAYDEN) degree you have received? Sex Assigned [...] as of this encounter Care Teams Supervisor Paper Testing Relationship Specialty Start Date End Date Shayla Alford D.O. PCP - General Internal Medicine 05/22/[address] [address] documented as of this encounter
--- OUTSIDE RECORDS SUMMARY | 2022-05-28 06:42 | XMS_ITS | Encounter Summary ---
:1945 Author Organization [facility] Address [address] [place] [address] Care Team Providers Name Role Phone Shayla Alford D.O. Primary Care Provider [phone] Encounter Details Date Type Department Care Team Description 02/06/2021 Hospital Encounter Department of Augustin Wong O n Chronic Laboratory Medicine Pato Duque Diastolic in [place] [address] (Congestive) Heart [place], [place] Failure (HCC) [address] [facility] [address] [address] [place], [place] [phone] [address] (Work) [phone] Social History Tobacco Use Types Packs/Day Years [...] do you attend orthodox or Never 2021 rastafari services? Do you [...] completed or the highest Martin, MEd, RESEARCH CENTER PARTNER, CAYDEN) degree you have received? Sex Assigned [...] by mouth tabletIndications: daily. 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 eGFR Non-Black/ 31 (L) >=60 mL/min/BSA 02/06/2021 2:00 PM CDT OWAT Algerian Comment: ----ADDITIONAL INFORMATION---- Estimated [...] Number [facility]- [address] [place] [address] [facility] [address] System in [place] [address] documented in this encounter Visit Diagnoses Diagnosis Acute On Chronic Diastolic (Congestive) Heart Failure (HCC) documented in this encounter Additional Health Concerns Assessment Noted Time PHQ-9 Depression Total Score: 18 04/28/2018 11:27 AM C DT documented as of this encounter Care Teams Proration Clerk Relationship Specialty Start Date End Date Shayla Alford D.O. PCP - General Internal Medicine 05/22/202199 [place] [phone] documented as of this encounter
--- OUTSIDE RECORDS SUMMARY | 2022-05-28 06:42 | XMS_ITS | Encounter Summary ---
:1945 Author Organization [facility] Address [address] [place] [address] Care Team Providers Name Role Phone Shayla Alford D.O. Primary Care Provider [phone] Reason for Visit Reason Comments Shortness of Breath Encounter Details Date Type Department Care Team Description 01/30/2021 Nurse Triage Department of Internal Elisa Woody Sho rtness of Breath Medicine in [facility] [address] [place] [address] [address] [place] [phone] Social History Tobacco Use Types [...] have completed or the highest Martin, MEd, MATE RELIEF, CAYDEN) degree you have received? Sex Assigned [...] [2] WORSE than normal Protocols used: BREATHING [id number] COVID-19 Nurse Line Screening ASSESSMENT Region Select appropriate region: : [place] Age Pathway Select approprite pathway: : Adult [...] water are not available, use a hand c d area supervisor -Avoid touching your eyes, nose and mouth. [...] as of this encounter Care Teams Radio Mechanic Relationship Specialty Start Date End Date Shayla Alford D.O. PCP - General Internal Medicine 05/22/[address] [phone] documented as of this encounter
--- OUTSIDE RECORDS SUMMARY | 2022-05-28 06:43 | XMS_ITS | Encounter Summary ---
:1945 Author Organization [facility] Address [address] [place] [address] Care Team Providers Name Role Phone Shayla Alford D.O. Primary Care Provider Encounter Details Date Type Department Care Team Description 11/24/2020 Orders Only Department of Internal Rocío Brooks pothyroidism (Primary Medicine in [place], , Coleman Mcguire Dx) [place] [address] [place] [phone] Social History Tobacco Use Types Packs/Day [...] do you attend buddhist or Never 2021 synagogue services? Do you [...] completed or the highest Martin, MEd, CONSTRUCTION ACCOUNTANT, CAYDEN) degree you have received? Sex Assigned [...] as of this encounter Care Teams Traveling Sales Representative Relationship Specialty Start Date End Date Shayla Alford D.O. PCP - General Internal Medicine 05/22/[address] [address] documented as of this encounter
--- OUTSIDE RECORDS SUMMARY | 2022-05-28 06:43 | XMS_ITS | Encounter Summary ---
:1945 Author Organization [facility] Address [address] [place] [address] Care Team Providers Name Role Phone Shayla Alford D.O. Primary Care Provider [phone] Reason for Referral MRI/CAT/PET Scan (Routine) - Closed Specialty Diagnoses / Procedures Referred By Contact Refer red To Contact Radiology Diagnoses Pancreatitis Chronic (HCC) Emil Zurita M.D. [facility] Procedures MR Abdomen MRCP without IV Contrast [address] [place], [place] [address] Referral ID Status Reason Start Date Expiration Date Visits Requ ested Visits Authorized [id number] Closed 12/07/2020 12/07/2021 1 1 IFICATION WRITER Reason for Visit Appointment Request (Routine) - Closed Specialty Diagnoses / Referred By Contact Referred To Procedures Contact Gastroenterology and Diagnoses Pancreatitis Chronic (HCC) Emil Zurita Hepatology Pato [address] [place] [address] Referral ID Status Reason Start Date Expiration Date Visits Requ ested Visits Authorized [id number] Closed 11/27/2020 11/27/2021 1 1 Encounter Details Date Type Department Care Team Description 12/05/2020 Virtual Visit Division of Greyson Zurita C hronic Gastroenterology in Rhoda Stein (HCC) (Primary Dx) [place], [place] 200 [facility] [address] [place] [address] [phone] Social History Tobacco Use Types Packs/Day Years [...] do you attend sikhism or Never 2021 catholic services? Do you [...] highest level of school Master's degree (e.g., eNto Arias, [place], 03/23/2019 you have completed or the highest Martin, MEd, MANAGER POKER, CAYDEN) degree you have received? Sex Assigned at Date Recorded Male 05/21/2018 2:34 PM CDT documented as of this encounter Progress Notes Emil Zurita M.D. - 12/05/2020 4:00 PM CST Gastroenterology and Hepatology Virtual Visit (COVID-19 Pandemic) Date of Consultation: 12/07/2020 This patient was virtually interviewed via real time audio in the patient's home by Emil Zurita M.D. at [facility]. The history and findings below are based on review of available medical records and a virtual conversation with the patient. This Virtual Visit was performed during theCOVID- emergency, when many states had issued [id number] orders. Referring Physician: Emil Zurita M.D. Primary Care Providers: Shayla Alford D.O. (General) [address] [facility] [address] Chief Complaint/Reason for Consult: No primary diagnosis found. History of Present Illness: Mr. Costa is a 75 y.o. male who is being seen remotely today. Mr. 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 About 2 months back he noticed his bowel habits changed f rom what was usually diarrhea to him being constipated. He has discontinued the Creon, and is using 6 oz of prune juice daily which has helped somewhat. He has lost about 30-40 lbs weight since the DC.He has noted to have a elevated TSH [...] with local provider(s). Emil Zurita M.D. 12/07/2020 IFICATION WRITER documented in this encounter Plan of Treatment [...] eGFR-Black/Afri 42 (L) >=60 12/12/2020 OWAT can [place] mL/min/BSA 1:35 PM CDT Comment: ----ADDITIONAL INFORMATION---- Estimated GFR calculated using the 2009 CKD_EPI creatinine equation. eGFR Non-Black/ 37 (L) >=60 mL/min/BSA 12/12/2020 1:35 PM CDT OWAT [place] Comment: ----ADDITIONAL INFORMATION---- Estimated GFR calculated using the 2009 CKD_EPI creatinine equation. Specimen Anatomical Collection Method Collection Time Receive d Time (Source) Location / / Volume Laterality Blood (Blood, 12/12/2020 12:37 12/12/2020 Venous) PM CDT 12:52 PM CDT Authorizing Provider Result Deloris Zruita M.D. LAB BLOOD ADD-ON Performing Organization Address City/[facility]/ZIP Code Phon e Number [facility]- [address] [place] [address] [place] [address] System in [place] [address] [facility] Prothrombin Time (PT) (12/12/2020 12:37 PM [...] Code Phon e Number [facility]- [address] [place] [address] [place] [address] System in [place] [address] [facility] 25-Hydroxyvitamin D2 and D3 (12/12/2020 12:37 PM CDT) P athologist Signature 25-Hydroxy D2 <4.0 ng/mL 12/14/2020 [facility] 1:23 AM CDT 25-Hydroxy D3 35 ng/mL 12/14/2020 [facility] 1:23 AM CDT 25-Hydroxy D 35 ng/mL 12[facility]14/[facility] Total 1:23 AM CDT Comment: ----REFERENCE VALUE---- 25-HYDROXY D TOTAL (D2+D3) Optimum level s in the healthy population are 20-50, patients with bone disease may benefit from higher levels within this r stan. ----ADDITIONAL INFORMATION---- This test was developed and its performa nce characteristics determined by [facility] in a manner consistent with CLIA requirements. This test has not been cleared or approved by the [place] d and Drug Administration. Specimen Anatomical Collection Method Collection Time Receive d Time (Source) Location / / Volume Laterality Blood (Blood, 12/12/2020 12:37 12/13/2020 7:48 Venous) PM CDT AM CDT Emil Zurita M.D. LAB BLOOD ADD-ON Performing Organization Address City/[facility] Phon e Number [facility] [address] [place], [place] [address] [place], [place] [address]t. [place] [address] Laboratory Medicine and Pathology [address] [place] Vitamin A and Vitamin E (12/12/2020 12:37 PM CDT) athologist Signature Vitamin A 70.5 32.5 - 78.0 12/14/2020 1:31 [facility] mcg/dL PM CDT Comment: ----ADDITIONAL INFORMATION---- This test was developed and its performa nce characteristics determined by [facility] in a manner consistent with CLIA requirements. This test has not been cleared or approved by the U.[place]. [place] d and Drug Administration. A-Tocopherol, Vitamin E 6.6 5.5 - 17.0 mg/L 12/15/2020 7:53 AM CDT [facility] Specimen Anatomical Collection Method Collection Time Receive d Time (Source) Location / / Volume Laterality Blood (Blood, 12/12/2020 12:37 12/13/2020 4:45 Venous) PM CDT PM CDT Emil Zurita M.D. LAB BLOOD NON ADD-ON Performing Organization Address City/[facility] Code Phon e Number [facility] [address] [place], [place] [address] SUPPORT CENTER [facility] [place] [address] Laboratory Medicine and Pathology [address] [place] documented in this encounter Visit Diagnoses Diagnosis Pancreatitis Chronic (HCC) - Primary Pancreatitis Chronic (HCC) documented in this encounter Additional Health Concerns Assessment Noted Time PHQ-9 Depression Total Score: 18 04/28/2018 11:27 AM C DT documented as of this encounter Care Teams Dancing Master Relationship Specialty Start Date End Date Shayla Alford D.O. PCP - General Internal Medicine 05/22/20 [address] [place] [address] documented as of this encounter
--- OUTSIDE RECORDS SUMMARY | 2022-05-28 06:43 | XMS_ITS | Encounter Summary ---
:1945 Author Organization [facility] Address [address] [place] [address] Care Team Providers Name Role Phone Shayla Alford D.O. Primary Care Provider [phone] Encounter Details Date Type Department Care Team Description 11/23/2020 Orders Only Department of Internal Rocío Brooks pothyroidism (Primary Medicine in [place], , Coleman Mcguire Dx) [place] [address] [place] [phone] Social History Tobacco Use Types Packs/Day [...] do you attend presybeterian or Never 2021 mu-ism services? Do you [...] have completed or the highest Martin, MEd, MOTORCYCLE ASSEMBLER, CAYDEN) degree you have received? Sex [...] supplements. ??If the result does not ma [facility] clinical observations, repeat testing after patient refrains fr om the use of supplements for at least 12 hours. Specimen Anatomical Collection Method Collection Time Receive d Time (Source) Location / / Volume Laterality Blood (Blood, 02/20/2021 11:09 02/20/2021 Venous) AM CDT 11:15 AM CDT Shayla Alford D.O. LAB BLOOD ADD-ON Performing Organization Address City/State/ZIP Code Phon e Number [facility]- [address] [place] [phone] [place] [address] System in [place] [address] (ABNORMAL) T3 (Triiodothyronine), Free (02/20/2021 11:09 AM CDT) P athologist Signature T3 2.5 (L) 2.8 - 4.4 02/20/2021 [facility] (Triiodothyron pg/mL 9:56 PM CDT ine), Free, S Specimen Anatomical Collection Method Collection Time Receive d Time (Source) Location / / Volume Laterality Blood (Blood, 02/20/2021 11:09 02/20/2021 9:08 Venous) AM CDT PM CDT Shayla Alford D.O. LAB BLOOD ADD-ON Performing Organization Address City/State/ZIP Code Phon e Number [facility] [address] [place], [place] [address] SUPPORT CENTER [facility] [place] [address] Laboratory Medicine and Pathology [address] [place] documented in this encounter Visit Diagnoses Diagnosis Hypothyroidism - Primary documented in this encounter Additional Health Concerns Assessment Noted Time PHQ-9 Depression Total Score: 18 04/28/2018 11:27 AM C DT documented as of this encounter Care Teams Sanitation Supervisor Relationship Specialty Start Date End Date Shayla Alford D.O. PCP - General Internal Medicine 05/22/202199 [place] [phone] documented as of this encounter
--- OUTSIDE RECORDS SUMMARY | 2022-05-28 06:43 | XMS_ITS | Encounter Summary ---
:1945 Author Organization [facility] Address [address] [place] [address] Care Team Providers Name Role Phone Shayla Alford D.O. Primary Care Provider [phone] Reason for Referral Outpatient (Routine) - Closed Specialty Diagnoses / Procedures Referred By Contact Refer red To Contact [facility] Internal ARMAAN Alford SE, D.O. [address] [address] Referral ID Status Reason Start Date Expiration Date Visits Requ ested Visits Authorized [id number] Closed 12/12/2020 12/12/2021 1 1 Scheduling Instructions One hour due to heart failure , HTN, DM2 , HLP , COPD Reason for Visit Reason Comments Hypothyroidism Outpatient (Routine) - Closed Specialty Diagnoses / Procedures Referred By Contact Refer red To Contact [facility] ARMAAN Alford SE, D.O. [address] [place] [phone] Referral ID Status Reason Start Date Expiration Date Visits Requ ested Visits Authorized [id number] Closed 11/21/2020 11/21/2021 1 1 Encounter Details Date Type Department Care Team Description 12/12/2020 Office Visit Department of [facility] On ronic Systolic (Congestive) Heart Failure (HCC) (Primary Dx); Internal Medicine in Shayla D. O. Diabetes Mellitus Type 2 Hyperglycemia ( HCC); [place], [place] [address] Hypertension Essential Primary; [address] [place], [place] Hyperlipidemia; [place] [address] Stroke (HCC); [phone] Chronic Obstructive Pulmonar y Disease Without Exacerbation [...] do you attend yazdanism or Never 2021 jainism services? Do you [...] completed or the highest Martin, MEd, SALES ESTIMATOR, CAYDEN) degree you have received? Sex Assigned [...] Body Mass Index 28.32 11/17/2020 2:22 PM SITE SURVEYOR documented in this encounter Progress Notes Shayla [...] been working with a committee at the DC to discuss the management of his diabetes. [...] succinate 50 mg by mouth daily, and [id number] mg by mouth daily. Continue to monitor [...] behalf by Sarai Cason, a trained biomedical engineering professor. The creation of this recordis based on [...] e Number [facility]- [address] [place] [address] [place] [address] System in [place] [address] Pulmonary Function Tests (12/27/2020 2:48 PM CDT) Specimen (Source) Anatomical Location Collection Method / Collectio n Time Received Time / Laterality Volume Narrative This result has an attachment that is no t available. Shayla Alford D.O. PFT ORDERABLES Performing Organization Address City/[facility]/ZIP Code Phon e Number [facility] SUITE (ABNORMAL) Hemoglobin A1c (12/12/2020 12:37 PM [...] e Number [facility]- [address] [place] [address] [facility] [place] [address] System in [place] [address] documented in this encounter Visit [...] as of this encounter Care Teams Power Screwdriver Operator Relationship Specialty Start Date End Date Shayla Alford D.O. PCP - General Internal Medicine 05/22/[address] [phone] documented as of this encounter
--- OUTSIDE RECORDS SUMMARY | 2022-05-28 06:43 | XMS_ITS | Encounter Summary ---
:1945 Author Organization [facility] Address [address] [place] [address] Care Team Providers Name Role Phone Shayla Alford D.O. Primary Care Provider [phone] Reason for Visit Reason Comments Shortness of [...] Expiration Date Visits Requ ested Visits Authorized [id number] Closed 12/18/2020 12/18/2021 1 1 Encounter Details Date Type Department Care Team Description 12/18/2020 Office Visit Department of Family Augustin Wong Sho rtness Of Breath (Primary Dx); Cadence Fleming M.D. 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 [...] Master's degree (e.g., MA, MS, Martin, MEd, PROCESS PLANT OPERATOR, CAYDEN) Occupational History Employer: RETIRED Social [...] More than three times a week Attends denominational service: Never Active member of club or [...] (Congestive) Heart Failure (HCC) Atherosclerotic Heart Disease [place] Coronary Artery With [...] agreed to go to the ER at [place]. ER called an signed out the patient to them. 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 PCP - General Internal Medicine 05/22/[address] [phone] documented as of this encounter
--- OUTSIDE RECORDS SUMMARY | 2022-05-28 06:43 | XMS_ITS | Encounter Summary ---
:1945 Author Organization [facility] Address [address] [place] [address] Care Team Providers Name Role Phone Shayla Alford D.O. Primary Care Provider [phone] Encounter Details Date Type Department Care Team Description 11/17/2020 Hospital Encounter Department of Manuel Evans Systolic Laboratory Medicine Pato Barber (Congestive) Heart and Pathology, 200 [facility] Failure (HCC) [facility] in [facility] [address] [place] [phone] 200 [facility] (Work) [place], [place] [phone] [address] (Fax) [phone] Social History Tobacco Use Types Packs/Day Years [...] do you attend samaritan or Never 2021 samaritan services? Do you [...] have completed or the highest Martin, MEd, TEAR DOWN MATCHER, [place]) degree you have received? Sex Assigned [...] by mouth tabletIndications: daily. Atherosclerotic Heart Disease [place] Coronary Artery With Other Forms Angina Pectoris [...] Chronic Systolic Result s for this AM POTATO PEELING MACHINE OPERATOR (Congestive) Heart procedure are in Failure (HCC) the results section. NT-PRO B-TYPE Routine 11/17/2020 9:03 Chronic Systolic Results for this NATRIURETIC PEPTIDE AM POTATO PEELING MACHINE OPERATOR (Congestive) Heart pr ocedure are in (BNP), S Failure (HCC) the results section. CBC WITH DIFFERENTIAL, B Routine 11/17/2020 9:03 Chronic Systo lic Results for this AM POTATO PEELING MACHINE OPERATOR (Congestive) Heart procedure are in Failure (HCC) the results section. BUN (BLOOD UREA Routine 11/17/2020 9:03 Chronic Systolic Resul ts for this NITROGEN), S/P AM POTATO PEELING MACHINE OPERATOR (Congestive) Heart procedu re are in Failure (HCC) the results section. ASPARTATE Routine 11/17/2020 9:03 Chronic Systolic Results for this AMINOTRANSFERASE (AST), AM POTATO PEELING MACHINE OPERATOR (Congestive) Hear t procedure are in S/P Failure (HCC) the results section. THYROID-STIMULATING Routine 11/17/2020 9:03 Chronic Systolic R esults for this HORMONE-SENSITIVE AM POTATO PEELING MACHINE OPERATOR (Congestive) Heart proc edure are in (S-TSH) Failure (HCC) the results section. SODIUM, S/P Routine 11/17/2020 9:03 Chronic Systolic Results for this AM POTATO PEELING MACHINE OPERATOR (Congestive) Heart procedure are in Failure (HCC) the results section. POTASSIUM, S/P Routine 11/17/2020 9:03 Chronic Systolic Result s for this AM POTATO PEELING MACHINE OPERATOR (Congestive) Heart procedure are in Failure (HCC) the results section. GLUCOSE, FASTING, S/P Routine 11/17/2020 9:03 Chronic Systolic Results for this AM POTATO PEELING MACHINE OPERATOR (Congestive) Heart procedure are in Failure (HCC) the results section. CREATININE WITH EGFR, Routine 11/17/2020 9:03 Chronic Systolic Results for this S/P AM POTATO PEELING MACHINE OPERATOR (Congestive) Heart procedure are in Failure (HCC) the results section. BICARBONATE, B/S/P Routine 11/17/2020 9:03 Chronic Systolic Re sults for this AM POTATO PEELING MACHINE OPERATOR (Congestive) Heart procedure are in Failure (HCC) the results section. documented in this encounter Results (ABNORMAL) NT-Pro B-Type Natriuretic Peptide (BNP) (11/17/2020 9:03 AM POTATO PEELING MACHINE OPERATOR) athologist Signature NT-Pro BNP 2558 (H) <=119 pg/mL 11/17/2020 DTL 10:08 AM POTATO PEELING MACHINE OPERATOR Comment: NT-proBNP values less than 300 pg/mL [...] (Blood, 11/17/2020 9:03 AM 11/17/19 9:26 Venous) POTATO PEELING MACHINE OPERATOR AM POTATO PEELING MACHINE OPERATOR Manuel Evans M.D. LAB BLOOD ADD-ON Performing Organization Address City/State/ZIP Code Phon e Number [facility] - [address] [place], [place] [address] [facility] [place] [address] Laboratories-[facility] [address] Potassium (11/17/2020 9:03 AM POTATO PEELING MACHINE OPERATOR) athologist Signature Potassium, S 4.3 3.6 - 5.2 11/17/2020 DTL mmol/L 10:08 AM POTATO PEELING MACHINE OPERATOR Specimen Anatomical Collection Method Collection Time Receive d Time (Source) Location / / Volume Laterality Blood (Blood, 11/17/2020 9:03 AM 11/17/19 9:26 Venous) POTATO PEELING MACHINE OPERATOR AM POTATO PEELING MACHINE OPERATOR Manuel Evans M.D. LAB BLOOD ADD-ON Performing Organization Address City/State/[facility] Phon e Number [facility] - [address] [place], [place] [address] [facility] [place] [address] Laboratories-[facility] 200 [facility] Bicarbonate (11/17/2020 9:03 AM POTATO PEELING MACHINE OPERATOR) P athologist Signature Bicarbonate, S 25 22 - 29 11/17/2020 DTL mmol/L 10:08 AM POTATO PEELING MACHINE OPERATOR Specimen Anatomical Collection Method Collection Time Receive d Time (Source) Location / / Volume Laterality Blood (Blood, 11/17/2020 9:03 AM 11/17/19 9:26 Venous) POTATO PEELING MACHINE OPERATOR AM POTATO PEELING MACHINE OPERATOR Manuel Evans M.D. LAB BLOOD ADD-ON Performing Organization Address City/State/[facility] Code Phon e Number [facility] - [address] [place], [place] [address] [place] [address] (ABNORMAL) S-TSH (Thyroid-Stimulating Hormone - Sensitive) (11/17/2020 9:03 AM POTATO PEELING MACHINE OPERATOR) athologist Signature TSH, Sensitive 19.4 (H) 0.3 - 4.2 11/17/2020 DTL mIU/L 10:07 AM POTATO PEELING MACHINE OPERATOR Specimen Anatomical Collection Method Collection Time Receive d Time (Source) Location / / Volume Laterality Blood (Blood, 11/17/2020 9:03 AM 11/17/19 9:26 Venous) POTATO PEELING MACHINE OPERATOR AM POTATO PEELING MACHINE OPERATOR Manuel Evans M.D. LAB BLOOD ADD-ON Performing Organization Address City/State/[facility] Code Phon e Number [facility] - [address] [place], [place] [address] [facility] [address] Laboratories-[address] (ABNORMAL) CBC with Differential, Blood (11/17/2020 9:03 AM POTATO PEELING MACHINE OPERATOR) Patholo gist Method Time Signature Hemoglobin 10.2 (L) 13.2 - 11/17/2020 DTL 16.6 g/dL 9:34 AM POTATO PEELING MACHINE OPERATOR Hematocrit 30.8 (L) 38.3 - 11/17/2020 DTL 48.6 % 9:34 AM POTATO PEELING MACHINE OPERATOR Erythrocytes 3.33 (L) 4.35 - 11/17/2020 DTL 5.65 9:34 AM POTATO PEELING MACHINE OPERATOR x10(12)/L MCV 92.5 78.2 - 11/17/2020 DTL 97.9 fL 9:34 AM POTATO PEELING MACHINE OPERATOR RBC Distrib Width 12.6 11.8 - 11/17/2020 DTL 14.5 % 9:34 AM POTATO PEELING MACHINE OPERATOR Platelet Count 167 135 - 317 11/17/2020 DTL x10(9)/L 9:34 AM POTATO PEELING MACHINE OPERATOR Leukocytes 6.6 3.4 - 9.6 11/17/2020 DTL x10(9)/L 9:34 AM POTATO PEELING MACHINE OPERATOR Neutrophils 4.75 1.56 - 11/17/2020 DTL 6.45 9:34 AM POTATO PEELING MACHINE OPERATOR x10(9)/L Lymphocytes 0.96 0.95 - 11/17/2020 DTL 3.07 9:34 AM POTATO PEELING MACHINE OPERATOR x10(9)/L Monocytes 0.44 0.26 - 11/17/2020 DTL 0.81 9:34 AM POTATO PEELING MACHINE OPERATOR x10(9)/L Eosinophils 0.35 0.03 - 11/17/2020 DTL 0.48 9:34 AM POTATO PEELING MACHINE OPERATOR x10(9)/L Basophils 0.06 0.01 - 11/17/2020 DTL 0.08 9:34 AM POTATO PEELING MACHINE OPERATOR x10(9)/L Specimen Anatomical Collection Method Collection Time Receive d Time (Source) Location / / Volume Laterality Blood (Blood, 11/17/2020 9:03 AM 11/17/19 21 9:26 Venous) POTATO PEELING MACHINE OPERATOR AM POTATO PEELING MACHINE OPERATOR Manuel Evans M.D. LAB BLOOD ADD-ON Performing Organization Address City/State/ZIP Code Phon e Number [facility] - [address] [place], [place] [address] [facility] [place] [address] Laboratories-[facility] [address] (ABNORMAL) Lipid Panel (11/17/2020 9:03 AM POTATO PEELING MACHINE OPERATOR) athologist Signature Cholesterol, 118 mg/dL 11/17/2020 DTL Total 10:07 AM POTATO PEELING MACHINE OPERATOR Comment: ----REFERENCE VALUE---- Desirable: < 200 Borderline high: 200 - 239 High: > or = 240 Triglycerides 90 mg/dL 11/17/2020 10:07 AM POTATO PEELING MACHINE OPERATOR DT L Comment: ----REFERENCE VALUE---- Normal: <150 Borderline high: 150-199 High: 200-499 Very high: > or =500 Cholesterol, HDL, S 34 (L) >=40 mg/dL 11/17/2020 10:07 AM POTATO PEELING MACHINE OPERATOR DTL Calculated LDL 66 mg/dL 11/17/2020 10:07 AM POTATO PEELING MACHINE OPERATOR D TL Comment: ----REFERENCE VALUE---- Desirable: <100 Above Desirable: 100-129 Borderline high: 130-159 High: 160-189 Very high: > or =190 Cholesterol, Non-HDL, Calculated 84 mg/dL 021 10:07 AM POTATO PEELING MACHINE OPERATOR DTL Comment: ----REFERENCE VALUE---- Desirable: <130 Above Desirable: 130-159 Borderline high: 160-189 High: 190-219 Very high: > or =220 Specimen Anatomical Collection Method Collection Time Receive d Time (Source) Location / / Volume Laterality Blood (Blood, 11/17/2020 9:03 AM 11/17/19 9:26 Venous) POTATO PEELING MACHINE OPERATOR AM POTATO PEELING MACHINE OPERATOR Manuel Evans M.D. LAB BLOOD ADD-ON Performing Organization Address City/[facility] Phon e Number [facility] - [address] [place] [address] (ABNORMAL) BUN (Blood Urea Nitrogen) (11/17/2020 9:03 AM POTATO PEELING MACHINE OPERATOR) athologist Signature BUN (Blood Urea 57 (H) 8 - 24 11/17/2020 DTL Nitrogen), S mg/dL 10:08 AM POTATO PEELING MACHINE OPERATOR Specimen Anatomical Collection Method Collection Time Receive d Time (Source) Location / / Volume Laterality Blood (Blood, 11/17/2020 9:03 AM 11/17/19 9:26 Venous) POTATO PEELING MACHINE OPERATOR AM POTATO PEELING MACHINE OPERATOR Manuel Evans M.D. LAB BLOOD ADD-ON Performing Organization Address City/[facility] Phon e Number [facility] - [address] AST (Aspartate Aminotransferase) (11/17/2020 9:03 AM POTATO PEELING MACHINE OPERATOR) [facility] gist Method Time Signature Aspartate 31 8 - 48 11/17/2020 DTL Aminotransferase U/L 10:08 AM POTATO PEELING MACHINE OPERATOR (AST), S Specimen Anatomical Collection Method Collection Time Receive d Time (Source) Location / / Volume Laterality Blood (Blood, 11/17/2020 9:03 AM 11/17/19 9:26 Venous) POTATO PEELING MACHINE OPERATOR AM POTATO PEELING MACHINE OPERATOR Manuel Evans M.D. LAB BLOOD ADD-ON Performing Organization Address City/[facility] Phon e Number [facility] - [address] (ABNORMAL) Creatinine with Estimated GFR (11/17/2020 9:03 AM POTATO PEELING MACHINE OPERATOR) Analysis Performed At [facility] logist Time Signature Creatinine 1.86 (H) 0.74 - 11/17/2020 DTL 1.35 mg/dL 10:07 AM POTATO PEELING MACHINE OPERATOR eGFR-Non 34 (L) >=60 11/17/2020 DTL Black/ mL/min/BSA 10:07 AM POTATO PEELING MACHINE OPERATOR [place]ran Comment: ----ADDITIONAL INFORMATION---- Estimated GFR calculated using the 2009 CKD_EPI creatinine equation. eGFR-Black/ 39 (L) >=60 mL/min/BSA 2020 10:07 AM POTATO PEELING MACHINE OPERATOR DTL Comment: ----ADDITIONAL INFORMATION---- Estimated GFR calculated using the 2009 CKD_EPI creatinine equation. Specimen Anatomical Collection Method Collection Time Receive d Time (Source) Location / / Volume Laterality Blood (Blood, 11/17/2020 9:03 AM 11/17/19 9:26 Venous) POTATO PEELING MACHINE OPERATOR AM POTATO PEELING MACHINE OPERATOR Manuel Evans M.D. LAB BLOOD ADD-ON Performing Organization Address City/State/[facility] Code Phon e Number [facility] - [address] D[place] [id number] [address] (ABNORMAL) Glucose, Fasting (11/17/2020 9:03 AM POTATO PEELING MACHINE OPERATOR) P athologist Signature Glucose, P 219 (H) 70 - 100 11/17/2020 DTL mg/dL 9:56 AM POTATO PEELING MACHINE OPERATOR Last Intake 1 hr 11/17/2020 DTL 9:26 AM POTATO PEELING MACHINE OPERATOR Specimen Anatomical Collection Method Collection Time Receive d Time (Source) Location / / Volume Laterality Blood (Blood, 11/17/2020 9:03 AM 11/17/19 9:26 Venous) POTATO PEELING MACHINE OPERATOR AM POTATO PEELING MACHINE OPERATOR Manuel Evans M.D. LAB BLOOD NON ADD-ON Performing Organization Address [facility] Phon e Number [facility] - [address] [place] [address] Sodium (11/17/2020 9:03 AM POTATO PEELING MACHINE OPERATOR) P athologist Signature Sodium, S 140 135 - 145 11/17/2020 DTL mmol/L 10:08 AM POTATO PEELING MACHINE OPERATOR Specimen Anatomical Collection Method Collection Time Receive d Time (Source) Location / / Volume Laterality Blood (Blood, 11/17/2020 9:03 AM 11/17/19 9:26 Venous) POTATO PEELING MACHINE OPERATOR AM POTATO PEELING MACHINE OPERATOR Manuel Evans M.D. LAB BLOOD ADD-ON Performing Organization Address City/[facility] Phon e Number [facility] - [id number] [place] [address] documented in this encounter Visit Diagnoses Diagnosis Chronic Systolic (Congestive) Heart Fail ure (HCC) documented in this encounter Additional Health Concerns Assessment Noted Time PHQ-9 Depression Total Score: 18 04/28/2018 11:27 AM C DT documented as of this encounter Care Teams Electrician Constructor Supervisor Relationship Specialty Start Date End Date Shayla Alford D.O. PCP - General Internal Medicine 05/22/20 [address] [place] [address] documented as of this encounter
--- OUTSIDE RECORDS SUMMARY | 2022-05-28 06:43 | XMS_ITS | Encounter Summary ---
:1945 Author Organization [facility] Address [address] [place] [address] Care Team Providers Name Role Phone Shayla Alford D.O. Primary Care Provider [phone] Reason for Referral Outpatient (Routine) - Closed Specialty Diagnoses / Procedures Referred By Contact Refer red To Contact Diagnoses Chronic Systolic (Congestive) Heart Failure (HCC) Manuel Evans M.D. [facility] Procedures ECG Heart rhythm monitor (Holter) [address] [place] [address] Referral ID Status Reason Start Date Expiration Date Visits Requ ested Visits Authorized [id number] Closed 11/17/2020 11/17/2021 1 1 T DESIGNER Reason for Visit Outpatient (Routine) - Closed Specialty Diagnoses / Procedures Referred By Contact Refer red To Contact Diagnoses Chronic Systolic (Congestive) Heart Failure (HCC) Manuel Evans M.D. [facility] Procedures ECG Heart rhythm monitor (Holter) [address] [place] [address] Referral ID Status Reason Start Date Expiration Date Visits Requ ested Visits Authorized [id number] Closed 11/17/2020 11/17/2021 1 1 Encounter Details Date Type Department Care Team Description 11/17/2020 Hospital Encounter Department of Jigar Evans Systolic Cardiovascular Manuel Barber M.D. (Congestive) Heart Diseases in [place], [facility] [address] Failure (HCC) [place], [place] [address] [place] [address] [place], [place] [phone] [address] (Work) [phone] Social History Tobacco Use Types Packs/Day Years [...] do you attend uatsdin or Never 2021 restoration services? Do you [...] have completed or the highest Martin, MEd, E COMMERCE SPECIALIST, [place]) degree you have received? Sex [...] (Angina Equivalent) ([facility]), Diabetes Mellitus Type 2 ([facility]), Hypertension Essential Primary levothyroxine (SYNTHROID, Take 1 [...] Chronic Systoli c Results for this CLINIC JUNIOR ARCHITECT PRINT DESIGNER (Congestive) Heart procedu re are in Failure (HCC) the results section. documented in this encounter Results HOLTER MONITOR - IN CLINIC JUNIOR ARCHITECT (11/17/2020 3:20 PM PRINT DESIGNER) [facility] gist Method Time Signature Pause Longest 2.14 s HOLTER SENTINEL VE Max Per [id number] HOLTER Hour Time SENTINEL VE Total Beats 256 count HOLTER SENTINEL SVE Max Per 19 count HOLTER Hour SENTINEL Mean Heart 56 bpm HOLTER Rate SENTINEL Max Heart Rate [id number] HOLTER Time SENTINEL Max Heart Rate 83 bpm HOLTER SENTINEL SVE Percent 0 percent HOLTER Beats SENTINEL SVT Runs 0 count HOLTER SENTINEL Analysis Date 20,210,222 HOLTER SENTINEL Holter Pauses 40 count HOLTER SENTINEL Bradycardia 0 count HOLTER Runs SENTINEL Min Heart Rate 47 bpm HOLTER SENTINEL Tachycardia 0 count HOLTER Runs SENTINEL VT Runs 0 count HOLTER SENTINEL Recording Date [id number] HOLTER SENTINEL VE Percent 0 percent HOLTER Beats SENTINEL AF Count 0 count HOLTER SENTINEL SVE Max Per [id number] HOLTER Hour Time SENTINEL Min Heart Rate 28113299620953 HOLTER Time SENTINEL SVE Total 118 count HOLTER Beats SENTINEL VE Max Per 28 count HOLTER Hour SENTINEL Specimen (Source) Anatomical Collection Method Collection Time Re ceived Time Location / / Volume Laterality 11/17/2020 3:18 PM PRINT DESIGNER Narrative This result has an attachment that [...] documented as of this encounter Care Teams Engineering Technologist Relationship Specialty Start Date End Date Shayla Alford D.O. PCP - General Internal Medicine 05/22/20 [address], [place] [address] documented as of this encounter
--- OUTSIDE RECORDS SUMMARY | 2022-05-28 06:43 | XMS_ITS | Encounter Summary ---
:1945 Author Organization [facility] Address [address] [place] [address] Care Team Providers Name Role Phone Shayla Alford D.O. Primary Care Provider [phone] Encounter Details Date Type Department Care Team Description 11/17/2020 Hospital Encounter Department of Manuel Evans Systolic Radiology, Agustín Barber M.D. (Congestive) Heart [facility], in [address] [facility] Failure (HCC) [facility] [address] 200 [facility] [phone] [place], [place] (Work) [phone] Social History Tobacco Use Types Packs/Day Years [...] have completed or the highest Martin, MEd, ARTILLERY METEOROLOGICAL MAN, [place]) degree you have received? Sex [...] daily SYRINGE-NEEDLE,INSULIN,0. 0 5 ML (INSULIN [facility]) amiodarone (PACERONE) 200 Take [...] by mouth tabletIndications: daily. 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 documented in this encounter Results DX Chest AP or PA and Lateral 2 Views (11/17/2020 9:31 AM MARKETING OPERATIONS CONSULTANT) Anatomical Region Laterality Modality Chest, Thoracic RST LOS, Thoracic ARZ LOS, Thoracic N/A Digital Radiography FLA LOS Specimen (Source) Anatomical Collection Method Collection Time Re ceived Time Location / / Volume Laterality 11/17/2020 9:50 AM MARKETING OPERATIONS CONSULTANT Impressions 11/17/2020 9:51 AM MARKETING OPERATIONS CONSULTANT In the interval from the prior study of 05/18/2020, a small right pleural effusion has decreased in size. Trace left pleural effusion has likely resolved. No definite additional changes . Calcified aorta. Borderline size of cardiac silhouette with slight pulmonary venous hypertension. Mitral annular calcification. Degenerative changes thor acic spine. Narrative 11/17/2020 9:51 AM MARKETING OPERATIONS CONSULTANT EXAM: ??DX CHEST AP OR PA AND [...] documented as of this encounter Care Teams Real Estate Analyst Relationship Specialty Start Date End Date Shayla Alford D.O. PCP - General Internal Medicine 05/22/[address] [phone] documented as of this encounter
--- OUTSIDE RECORDS SUMMARY | 2022-05-28 06:43 | XMS_ITS | Encounter Summary ---
:1945 Author Organization [facility] Address [address] [place] [address] Care Team Providers Name Role Phone Shayla Alford D.O. Primary Care Provider [phone] Encounter Details Date Type Department Care Team Description 12/24/2020 Lab Department of [facility] Ligia Alford For Screening Medicine, [facility] Tulio Mcguire For Other Viral Diseases [address] (COVID-19) [place], [place] [address] [facility] [address] [place] [address] [phone] Social History Tobacco Use Types Packs/Day Years [...] do you attend adventist or Never 2021 hoahaoism services? Do you [...] have completed or the highest Martin, MEd, TEAM PRIMARY CARE PHYSICIAN, [place]) degree you have received? Sex [...] RNA, V Asymptomatic (12/24/2020 9:41 AM CDT) [facility] Method Time [...] pe rformed using the Aptima SARS-CoV-2 assay ([employer] on the [place] Sys tem under emergency use authorization (EUA) by the U.S. Food and Drug Administ ration. Fact sheets for this EUA assay can be fo und at the following links: For Healthcare Providers: https://www.fd a.gov/media/275943/download For Patients: https://www.fda.gov/media/ 690007/download Specimen Anatomical Collection Method Collection Time Receive d Time (Source) Location / / Volume Laterality Varies 12/24/2020 9:41 AM 7:14 (Nasopharynx) CDT AM CDT Shayla Alford D.O. LAB MICROBIOLOGY - GENERAL ORDERABLES Performing Organization Address City/State/[facility] Phon e Number [facility]- [address] [place] [address] [place] [address] [address] documented in this encounter Visit Diagnoses Diagnosis Encounter For Screening For Other Viral Diseases (COVID-19) documented in this encounter Additional Health Concerns Infection Onset Date Last Indicated Resolved Time COVID19 Pending 12/23/2020 12/24/2020 12/25/2020 2:43 PM CDT Assessment Noted Time PHQ-9 Depression Total Score: 18 04/28/2018 11:27 AM C DT documented as of this encounter Care Teams Crown Pouncer Relationship Specialty Start Date End Date Shayla Alford D.O. PCP - General Internal Medicine 05/22/20 [address] [place] [address] documented as of this encounter
--- OUTSIDE RECORDS SUMMARY | 2022-05-28 06:43 | XMS_ITS | Encounter Summary ---
:[address] [facility] Address [address] [place] [address] Care Team Providers Name Role Phone Shayla Alford D.O. Primary Care Provider [phone] Encounter Details Date Type Department Care Team Description 11/22/2020 Hospital Encounter Department of José Luis Alford thyroidism Laboratory Medicine in Gianna Mcguire [place], [place] [address] [place] [phone] Social History Tobacco Use Types [...] do you attend sikh or Never 2021 taoist services? Do you [...] have completed or the highest Martin, MEd, GEMOLOGIST, CAYDEN) degree you have received? Sex Assigned [...] by mouth tabletIndications: daily. 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 - 11/24/2020 9:33 AM RUFFLER Please call patient following information. We will need to increase your thyroid medication further up. From 50 mcg daily to 75 mcg daily. Prescription will be sent to your pharmacy for pickup. Keep your 50 mcg tablets for future use. Electronically signed by: Shayla Alford D.O. 11/24/20 9:32 AM RUFFLER LER documented in this encounter Plan of Treatment Not on filedocumented as of this encounter Procedures Procedure Name Priority Date/Time Associated Diagnosis Comme nts T3 Routine 11/22/2020 10:57 Hypothyroidism Results f or this (TRIIODOTHYRONINE), AM RUFFLER procedur e are in FREE, S the results section. THYROID-STIMULATING Routine 11/22/2020 10:57 Hypothyroidism Re sults for this HORMONE-SENSITIVE AM RUFFLER procedure are in (S-TSH) the results section. T4 (THYROXINE), Routine 11/22/2020 10:57 Hypothyroidism Result s for this FREE, S AM RUFFLER procedure are i n the results section. documented in this encounter Results T4 (Thyroxine), Free (11/22/2020 10:57 AM RUFFLER) P athologist Signature T4 (Thyroxine), 0.9 0.9 - 1.7 11/22/2020 [place] Free, P ng/dL 11:49 AM RUFFLER Comment: Biotin has been identified by the capri enriquez as a potential interfering substance. ??Higher concentr ations of biotin may be found in multivitamins, hair/nail supple ments, and workout supplements. ??If the result does not [facility] clinical observations, repeat testing after patient refrains fr om the use of supplements for at least 12 hours. Specimen Anatomical Collection Method Collection Time Receive d Time (Source) Location / / Volume Laterality Blood (Blood, 11/22/2020 10:57 11/22/2020 Venous) AM RUFFLER 10:58 AM RUFFLER Shayla Alford D.O. LAB BLOOD ADD-ON Performing Organization Address City/State/ZIP Code Phon e Number [facility]- [address] [place] [address] [facility] [place] [address] [address] [place] [address] (ABNORMAL) T3 (Triiodothyronine), Free (11/22/2020 10:57 AM RUFFLER) athologist Signature T3 2.4 (L) 2.8 - 4.4 11/23/2020 [facility] (Triiodothyron pg/mL 9:17 AM RUFFLER ine), Free, S Specimen Anatomical Collection Method Collection Time Receive d Time (Source) Location / / Volume Laterality Blood (Blood, 11/22/2020 10:57 11/23/2020 7:57 Venous) AM RUFFLER AM RUFFLER Shayla Alford D.O. LAB BLOOD ADD-ON Performing Organization Address City/State/ZIP Code Phon e Number [facility] [address] [address] [place], [place] [address] [place] [address] [place] [address] Laboratory Medicine and Pathology [address] [place] (ABNORMAL) S-TSH (Thyroid-Stimulating Hormone - Sensitive) (11/22/2020 10:57 AM RUFFLER) P athologist Signature TSH, Sensitive 14.0 (H) 0.3 - 4.2 11/22/2020 [place] mIU/L 11:49 AM RUFFLER Specimen Anatomical Collection Method Collection Time Receive d Time (Source) Location / / Volume Laterality Blood (Blood, 11/22/2020 10:57 11/22/2020 Venous) AM RUFFLER 10:58 AM RUFFLER Shayla Alford D.O. LAB BLOOD ADD-ON Performing Organization Address City/State/ZIP Code Phon e Number [facility] [address] [place] [address] [place] [address] [place] [address] documented in this encounter Visit Diagnoses Diagnosis Hypothyroidism documented in this encounter Additional Health Concerns Assessment Noted Time PHQ-9 Depression Total Score: 18 04/28/2018 11:27 AM C DT documented as of this encounter Care Teams Traffic Operations Engineer Relationship Specialty Start Date End Date Shayla Alford D.O. PCP - General Internal Medicine 05/22/[address] [place] [address] documented as of this encounter
--- OUTSIDE RECORDS SUMMARY | 2022-05-28 06:43 | XMS_ITS | Encounter Summary ---
:1945 Author Organization [facility] Address [address] [place] [address] Care Team Providers Name Role Phone Shayla Alford D.O. Primary Care Provider Encounter Details Date Type Department Care Team Description 12/12/2020 Hospital Encounter Department of Parminder, Pancreat itis Chronic Laboratory Medicine Rhoda Stein ([facility]) in [place], [facility] [address] [place], [place] [address] [address] [place], [place] [phone] (Work) [phone] Social History Tobacco Use Types Packs/Day Years [...] do you attend rastafarian or Never 2021 sikh services? Do you [...] completed or the highest Martin, MEd, BRANCH STORE MANAGER, CAYDEN) degree you have received? [...] Other Forms Angina Pectoris (Angina Equivalent) ([facility]), Diabetes Mellitus Type 2 (HCC), [...] for this VITAMIN E, S PM CDT ([facility]) procedure are i n the results section. 25-HYDROXYVITAMIN D2 Routine 12/12/2020 12:37 Pancreatitis Chr onic Results for this AND D3, S PM CDT ([facility]) procedure are i n the results section. PROTHROMBIN TIME Routine 12/12/2020 12:37 Pancreatitis Chronic Results for this (PT), P PM CDT ([facility]) procedure are i n the results section. CREATININE WITH Routine 12/12/2020 12:37 Pancreatitis Chronic Results for this EGFR, S/P PM CDT ([facility]) procedure are i n the results section. documented in this encounter Results (ABNORMAL) Creatinine with Estimated GFR (12/12/2020 12:37 PM CDT) Analysis Performed At [facility] logist Time Signature Creatinine 1.75 (H) 0.74 - 12/12/2020 [place] 1.35 mg/dL 1:35 PM CDT eGFR-Black/Afri 42 (L) >=60 12/12/2020 [place] can [place] mL/min/BSA 1:35 PM CDT Comment: ----ADDITIONAL INFORMATION---- Estimated GFR calculated using the 2009 CKD_EPI creatinine equation. eGFR Non-Black/ 37 (L) >=60 mL/min/BSA 12/12/2020 1:35 PM CDT [place] Comment: ----ADDITIONAL INFORMATION---- Estimated GFR calculated using the 2009 CKD_EPI creatinine equation. Specimen Anatomical Collection Method Collection Time Receive d Time (Source) Location / / Volume Laterality Blood (Blood, 12/12/2020 12:37 12/12/2020 Venous) PM CDT 12:52 PM CDT Emil Zurita M.D. LAB BLOOD ADD-ON Performing Organization Address City/[facility]/ZIP Code Phon e Number [facility]- [address] [facility] [address] [place] [address] System in [place] [address] [facility] Prothrombin Time (PT) (12/12/2020 12:37 PM [...] M.D. LAB BLOOD ADD-ON Performing Organization Address City/[facility]/ZIP Code Phon e Number [facility]- [address] [place] [address] [place] [address] System in [place] [address] 25-Hydroxyvitamin D2 and D3 (12/12/2020 12:37 PM CDT) P athologist Signature 25-Hydroxy D2 <4.0 ng/mL 12/14/2020 [facility] 1:23 AM CDT 25-Hydroxy D3 35 ng/mL 12/14/2020 [facility] 1:23 AM CDT 25-Hydroxy D 35 ng/mL 12/14/2020 [facility] Total 1:23 AM CDT Comment: ----REFERENCE VALUE---- 25-HYDROXY D TOTAL (D2+D3) Optimum level s in the healthy population are 20-50, patients with bone disease may benefit from higher levels within this r stan. ----ADDITIONAL INFORMATION---- This test was developed and its performa nce characteristics determined by [facility] in a manner consistent with CLIA requirements. This test has not been cleared or approved by the U.[place]. [place] d and Drug Administration. Specimen Anatomical Collection Method Collection Time Receive d Time (Source) Location / / Volume Laterality Blood (Blood, 12/12/2020 12:37 12/13/2020 7:48 Venous) PM CDT AM CDT Emil Zurita M.D. LAB BLOOD ADD-ON Performing Organization Address [facility] Phon e Number [facility] [address] [place] [address] [address] [facility] [place] [address] Laboratory Medicine and Pathology [address] [place] [address] Dr. AYALA Vitamin A and Vitamin E (12/12/2020 12:37 PM CDT) P athologist Signature Vitamin A 70.5 32.5 - 78.0 12/14/2020 1:31 [facility] mcg/dL PM CDT Comment: ----ADDITIONAL INFORMATION---- This test was developed and its performa nce characteristics determined by [facility] in a manner consistent with CLIA requirements. This test has not been cleared or approved by the [place]. [place] d and Drug Administration. A-Tocopherol, Vitamin E 6.6 5.5 - 17.0 mg/L 12/15/2020 7:53 AM CDT [facility] Specimen Anatomical Collection Method Collection Time Receive d Time (Source) Location / / Volume Laterality Blood (Blood, 12/12/2020 12:37 12/13/2020 4:45 Venous) PM CDT PM CDT Emil Zurita M.D. LAB BLOOD NON ADD-ON Performing Organization Address City/[facility] Phon e Number [place] [address] [place] [address] [address] [facility] [place] [address] Laboratory Medicine and Pathology [address] [place] documented in this encounter Visit Diagnoses Diagnosis Pancreatitis Chronic (HCC) documented in this encounter Additional Health Concerns Assessment Noted Time PHQ-9 Depression Total Score: 18 04/28/2018 11:27 AM C DT documented as of this encounter Care Teams Rn Delivery Relationship Specialty Start Date End Date Shayla Alford D.O. PCP - General Internal Medicine 05/22/[address] [phone] documented as of this encounter
--- OUTSIDE RECORDS SUMMARY | 2022-05-28 06:43 | XMS_ITS | Encounter Summary ---
:1945 Author Organization [facility] Address [address] [place] [address] Care Team Providers Name Role Phone Shayla Alford D.O. Primary Care Provider [phone] Reason for Referral Outpatient (Routine) - Closed Specialty Diagnoses / Procedures Referred By Contact Refer red To Contact [facility] Internal Xu Prescott M.D. [place] [address] [place] [address] Referral ID Status Reason Start Date Expiration Date Visits Requ ested Visits Authorized [id number] Closed 12/20/2020 12/20/2021 1 1 Reason for Visit Reason Comments Follow-up er follow up from heart fail ure on 12/18/2020 Appointment Request (Routine) - Closed Specialty Diagnoses / Procedures Referred By Contact Madelaine castillo To Contact Family Medicine Referral ID Status Reason Start Date Expiration Date Visits Requ ested Visits Authorized [id number] Closed 12/18/2020 12/18/2021 1 1 Encounter Details Date Type Department Care Team Description 12/20/2020 Office Visit Department of Xu Prescott, Sarath [facility] hilary Systolic (Congestive) Heart Failure (HCC) (Primary Dx); Internal Medicine in [place] Atherosclerotic Heart Disease [place] Cor onary Artery With Other Forms Angina Pectoris (Angina Equivalent) (HCC); [place], [place] [address] Chronic Kidney Disease (CKD) , Stage 3 Unspecified (HCC) [address] [facility] [place] [address] [phone] Social History Tobacco Use Types Packs/Day Years [...] do you attend restorationism or Never 2021 mormonism services? Do you [...] have completed or the highest Martin, MEd, APPLIQUE SEWER, CAYDEN) degree you have received? Sex [...] CLINIC PROGRESS NOTE SUBJECTIVE LOCATION OF EXAM: [facility] CHIEF COMPLAINT/REASON FOR VISIT Chief Complaint [...] Heart Failure (HCC) 2. 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 Chronic Kidney Disease (CKD), Stage 3 Unspecified (HCC) Improved after increase in diuretic. Will have him continue on torsemide 60 mg daily for another 3 days. Then will recheck his BMP. I will see him back next week to reassess his volume status and decide if more bed bug exterminator increase in his diuretic is needed. - [...] Name Type Priority Associated Diagnoses Order S [facility] Internal Outpatient Referral Routine Ex [...] eGFR-Black/Afri 41 (L) >=60 12/22/2020 [place] can [place] mL/min/BSA 2:00 PM CDT Comment: ----ADDITIONAL INFORMATION---- Estimated GFR calculated using the 2009 CKD_EPI creatinine equation. eGFR Non-Black/ 35 (L) >=60 mL/min/BSA 12/22/2020 2:00 PM CDT [place] Comment: ----ADDITIONAL INFORMATION---- Estimated GFR calculated [...] Code Phon e Number [facility]- [address] [place] [address] [place] [address] System in [place] [address] [facility] documented in this encounter Visit Diagnoses Diagnosis Acute On Chronic Systolic (Congestive) H eart Failure (HCC) - Primary Atherosclerotic Heart Disease [place] Cor onary Artery With Other Forms Angina Pectoris (Angina Equivalent) (HCC) Chronic Kidney Disease (CKD), Stage 3 Un specified (HCC) documented in this encounter Additional Health Concerns Assessment Noted Time PHQ-9 Depression Total Score: 18 04/28/2018 11:27 AM C DT documented as of this encounter Care Teams Flight Attendant/Inflight Supervisor Relationship Specialty Start Date End Date Shayla Alford D.O. PCP - General Internal Medicine 05/22/202199 [place] [address] documented as of this encounter
--- OUTSIDE RECORDS SUMMARY | 2022-05-28 06:43 | XMS_ITS | Encounter Summary ---
:1945 Author Organization [facility] Address [address] [place] [address] Care Team Providers Name Role Phone Shayla Aflord D.O. Primary Care Provider [phone] Reason for Referral Outpatient (Routine) - Closed Specialty Diagnoses / Procedures Referred By Contact Refer red To Contact Community Internal ARMAAN Alford [facility] Bernadette Mcguire D.O. [address] [place] [phone] Referral ID Status Reason Start Date Expiration Date Visits Requ ested Visits Authorized [id number] Closed 11/21/2020 11/21/2021 1 1 Scheduling Instructions One hour due to multiple concerns AND COAL TRANSPORT OPERATOR Reason for Visit Reason Comments Thyroid Problem Reports abnormal TSH Med Management Diabetes Mellitus Outpatient (Routine) - Closed Specialty Diagnoses / Procedures Referred By Contact Refer red To Contact Community Internal Diagnoses Failure Heart (HCC) Hypertension Essential Primary Diabetes Mellitus Type 2 Hyperglycemia (HCC) Pancreatitis Chronic Recurrent (HCC) RAMAAN Alford [facility] Tulio Mcguire [address] [place] [phone] Referral ID Status Reason Start Date Expiration Date Visits Requ ested Visits Authorized [id number] Closed 10/20/2020 10/20/2021 1 1 Encounter Details Date Type Department Care Team Description 11/21/2020 Office Visit Department of Internal Rocío Alvarado Mellitus Type 2 Hyperglycemia (HCC) (Primary Dx); Medicine in [place], [place] .O. Failure Heart (HCC); [place] [address] Hypertension Essential Primary; [address] [place], [place] Pancreatitis Chronic Recurre nt (HCC); [place] [address] Hypothyroidism; [phone] Screening Cancer Colon Social History [...] do you attend catholic or Never 2021 uatsdin services? Do you [...] completed or the highest Martin, MEd, REGIONAL TRANSPORTATION MANAGER, CAYDEN) degree you have received? Sex Assigned at Date Recorded Male 05/21/2018 2:34 PM CDT documented as of this encounter Last Filed Vital Signs Vital Sign Reading Time Taken Comments Blood Pressure 144/66 11/21/2020 4:03 PM MILL AND COAL TRANSPORT OPERATOR Pulse 56 11/21/2020 4:03 PM MILL AND COAL TRANSPORT OPERATOR Temperature 36.1 ??C (97 ??F) 11/21/2020 4:03 PM MILL AND COAL TRANSPORT OPERATOR Respiratory Rate - - Oxygen Saturation 98% 11/21/2020 4:03 PM MILL AND COAL TRANSPORT OPERATOR Inhaled Oxygen Concentration - - Weight 98.8 kg (217 lb 13 oz) 11/21/2020 4:03 PM MILL AND COAL TRANSPORT OPERATOR Height - - Body Mass Index 27.95 11/17/2020 2:22 PM MILL AND COAL TRANSPORT OPERATOR documented in this encounter Progress Notes [...] #3 Failure Heart (HCC). #4??Atherosclerotic Heart Disease [place] Coronary Artery With Other Forms Angina Pectoris [...] succinate 50 mg by mouth daily, and [id number] mg by mouth daily. Continue to monitor [...] their behalf by Sarai Cason, a trained expert medical writer. The creation of this recordis based on the scribe remotely listening to the visit and the provider's statements to them. This do cument has been checked and approved by the attending provider. Time spent 55 minutes AND COAL TRANSPORT OPERATOR documented in this encounter Plan of Treatment Scheduled Referrals Name Type Priority Associated Diagnoses Order S [facility] Internal Outpatient Referral Routine Ex pected: Medicine office 12/05/2020 visit (clinic) (Approximate) , Expires: 11/21/2023 documented as of this encounter Results T4 (Thyroxine), Free (11/22/2020 10:57 AM MILL AND COAL TRANSPORT OPERATOR) P athologist Signature T4 (Thyroxine), 0.9 0.9 - 1.7 11/22/2020 [place] Free, P ng/dL 11:49 AM MILL AND COAL TRANSPORT OPERATOR Comment: Biotin has been identified by the [...] Blood (Blood, 11/22/2020 10:57 11/22/2020 Venous) AM MILL AND COAL TRANSPORT OPERATOR 10:58 AM MILL AND COAL TRANSPORT OPERATOR Shayla Alford D.O. LAB BLOOD ADD-ON Performing Organization Address City/State/ZIP Code Phon e Number [facility]- [address] [place] [address] [place] [address] System in [place] [address] (ABNORMAL) T3 (Triiodothyronine), Free (11/22/2020 10:57 AM MILL AND COAL TRANSPORT OPERATOR) P athologist Signature T3 2.4 (L) 2.8 - 4.4 11/23/2020 [facility] (Triiodothyron pg/mL 9:17 AM MILL AND COAL TRANSPORT OPERATOR ine), Free, S Specimen Anatomical Collection Method Collection Time Receive d Time (Source) Location / / Volume Laterality Blood (Blood, 11/22/2020 10:57 11/23/2020 7:57 Venous) AM MILL AND COAL TRANSPORT OPERATOR AM MILL AND COAL TRANSPORT OPERATOR Shayla Alford D.O. LAB BLOOD ADD-ON Performing Organization Address City/State/ZIP Code Phon e Number [facility] [address] [place], [place] [address] [place] [address] CENTER [facility] [place] [address] Laboratory Medicine and Pathology [address] [place] (ABNORMAL) S-TSH (Thyroid-Stimulating Hormone - Sensitive) (11/22/2020 10:57 AM MILL AND COAL TRANSPORT OPERATOR) athologist Signature TSH, Sensitive 14.0 (H) 0.3 - 4.2 11/22/2020 [place] mIU/L 11:49 AM MILL AND COAL TRANSPORT OPERATOR Specimen Anatomical Collection Method Collection Time Receive d Time (Source) Location / / Volume Laterality Blood (Blood, 11/22/2020 10:57 11/22/2020 Venous) AM MILL AND COAL TRANSPORT OPERATOR 10:58 AM MILL AND COAL TRANSPORT OPERATOR Shayla Alford D.O. LAB BLOOD ADD-ON Performing Organization Address City/State/ZIP Code Phon e Number [facility]- [address] [place] [address] [facility] [place] [address] System in [place] [address] documented in this encounter Visit Diagnoses Diagnosis Diabetes Mellitus Type 2 Hyperglycemia ( HCC) - Primary Failure Heart (HCC) Hypertension Essential Primary Pancreatitis Chronic Recurrent (HCC) Hypothyroidism Screening Cancer Colon documented in this encounter Additional Health Concerns Assessment Noted Time PHQ-9 Depression Total Score: 18 04/28/2018 11:27 AM C DT documented as of this encounter Care Teams Anesthesiology Resident Relationship Specialty Start Date End Date Shayla Alford D.O. PCP - General Internal Medicine 05/22/202199 [place] [address] documented as of this encounter
--- OUTSIDE RECORDS SUMMARY | 2022-05-28 06:43 | XMS_ITS | Encounter Summary ---
:1945 Author Organization [facility] Address [address] [place] [address] Care Team Providers Name Role Phone Shayla Alford D.O. Primary Care Provider [phone] Reason for Visit Reason Comments Shortness of Breath COVID Nurse Line Encounter Details Date Type Department Care Team Description 12/18/2020 Nurse Triage Department of Internal Milena Mackenzie, Shortness of Breath; [facility] [place] [address] [facility] [address] [place] [phone] Social History Tobacco Use Types Packs/Day Years [...] completed or the highest Martin, MEd, JET ENGINE MECHANIC, CAYDEN) degree you have received? Sex Assigned at Date Recorded Male 05/21/2018 2:34 PM CDT documented as of this encounter Miscellaneous Notes Telephone Encounter - Milena Mackenzie R.N. - 12/18/2020 9:02 AM CDT COVID-19 Nurse Line Screening ASSESSMENT Region Select appropriate region: : [place] Age Pathway Select approprite pathway: : Adult [...] water are not available, use a hand braid maker -Avoid touching your eyes, nose and mouth. [...] care: Yes The following references were used: [facility] novel coronavirus (COVID- 19) resources Nursing [...] [2] WORSE than normal Protocols used: BREATHING [id number] documented in this encounter Plan of Treatment Not on filedocumented as of this encounter Visit Diagnoses Not on filedocumented in this encounter Additional Health Concerns Assessment Noted Time PHQ-9 Depression Total Score: 18 04/28/2018 11:27 AM C DT documented as of this encounter Care Teams Farm Demonstrator Relationship Specialty Start Date End Date Shayla Alford D.O. PCP - General Internal Medicine 05/22/20 [address] [place] [phone] documented as of this encounter
--- OUTSIDE RECORDS SUMMARY | 2022-05-28 06:43 | XMS_ITS | Encounter Summary ---
:1945 Author Organization [facility] Address [address] [place] [address] Care Team Providers Name Role Phone Shayla Alford D.O. Primary Care Provider [phone] Reason for Visit Reason Comments Shortness of Breath Encounter Details Date Type Department Care Team Description 12/18/2020 - Emergency [facility] ED Effusion Pleural (Primary Dx ); 12/19/[address] [place] [phone] Social History Tobacco Use Types Packs/Day [...] do you attend rastafari or Never 2021 mormonism services? Do you [...] completed or the highest Martin, MEd, SALES STOCK ASSOCIATE, CAYDEN) degree you have received? Sex [...] Forms Angina Pectoris (Angina Equivalent) ([facility]), Diabetes Mellitus Type 2 (HCC), [...] DX CHEST PORTABLE 1 VIEW Procedure Note Juilo Laguna M.D. - 12/18/2020For matting of this [...] as of this encounter Care Teams Licensed Psychologist Director Relationship Specialty Start Date End Date Shayla Alford D.O. PCP - General Internal Medicine 05/22/20 [address] [place] [phone] documented as of this encounter
--- OUTSIDE RECORDS SUMMARY | 2022-05-28 06:43 | XMS_ITS | Encounter Summary ---
:1945 Author Organization [facility] Address [address] [place] [address] Care Team Providers Name Role Phone Shayla Alford D.O. Primary Care Provider [phone] Encounter Details Date Type Department Care Team Description 12/18/2020 Clinical Communication Department of Internal Andrei Dejesus Medicine in [place], [place], [place].O Mauro [place] [address] [place] [phone] Social History Tobacco Use Types Packs/Day Years [...] do you attend christianity or Never 2021 rastafarian services? Do you [...] completed or the highest Martin, MEd, SPIRAL TUBE WINDER HELPER, CAYDEN) degree you have received? Sex [...] documented as of this encounter Care Teams Vp Ad Sales West Relationship Specialty Start Date End Date Shayla Alford D.O. PCP - General Internal Medicine 05/22/202199 [address] [facility] [place] [address] documented as of this encounter
--- OUTSIDE RECORDS SUMMARY | 2022-05-28 06:43 | XMS_ITS | Encounter Summary ---
:1945 Author Organization [facility] Address [address] [place] [address] Care Team Providers Name Role Phone Shayla Alford D.OMauro Primary Care Provider [phone] Reason for Visit Reason Comments Med Refill Encounter Details Date Type Department Care Team Description 11/27/2020 Refill Department of Internal Medicine Shayla Rob, [facility] [address] [place] [address] [place] [address] (Wo rk) Social History Tobacco Use Types [...] do you attend rastafarian or Never 2021 confucianist services? Do you [...] have completed or the highest Martin, MEd, COMPLIANCE INVESTIGATOR, CAYDEN) degree you have received? Sex Assigned at Date Recorded Male 05/21/2018 2:34 PM CDT documented as of this encounter Miscellaneous Notes Telephone Encounter - Whitney Chavez - 11/27/2020 9:13 AM CST Primary Provider: Shayla Alford D.O. Name of Medication: Trulicity Strength: 0.75mg/0.5mL injection Frequency: 1 injection per week Pharmacy (include location): [facility] [place] Patient states that this was to have been called in last week and the pharmacy states they have not received this. Patient has not been able to get this filled since provider called it in. CHISE BUSINESS CONSULTANT documented in this encounter Plan of [...] as of this encounter Care Teams Automotive Center Manager Relationship Specialty Start Date End Date Shayla Alford D.O. PCP - General Internal Medicine 05/22/[address] [address] documented as of this encounter
--- OUTSIDE RECORDS SUMMARY | 2022-05-28 06:43 | XMS_ITS | Encounter Summary ---
:1945 Author Organization [facility] Address [address] [place] [address] Care Team Providers Name Role Phone Shayla Alford D.O. Primary Care Provider [phone] Encounter Details Date Type Department Care Team Description 12/22/2020 Hospital Encounter Department of Xu Prescott Acute O n Chronic Systolic (Congestive) Heart Failure (HCC); Laboratory Medicine Pato Chronic Kidney Disease (CKD), Stage 3 Un specified (HCC) in [address], [place] [address] Social History Tobacco Use Types Packs/Day [...] you attend oriental orthodox or Never 2021 latter-day services? Do you [...] completed or the highest Martin, MEd, MAINTENANCE AND ENGINEERING MANAGER, CAYDEN) degree you have received? [...] by mouth tabletIndications: daily. 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 eGFR Non-Black/ 35 (L) >=60 mL/min/BSA 12/22/2020 2:00 PM CDT OWAT Israeli Comment: ----ADDITIONAL INFORMATION---- Estimated GFR calculated using [...] e Number [facility]- [address] [place] [address] [place] [address] System in [place] [address] [facility] documented in this encounter Visit Diagnoses Diagnosis Acute On Chronic Systolic (Congestive) H eart Failure (HCC) Chronic Kidney Disease (CKD), Stage 3 Un specified (HCC) documented in this encounter Additional Health Concerns Assessment Noted Time PHQ-9 Depression Total Score: 18 04/28/2018 11:27 AM C DT documented as of this encounter Care Teams Truck Washer Relationship Specialty Start Date End Date Shayla Alford D.O. PCP - General Internal Medicine 05/22/202199 [place] [address] documented as of this encounter
--- OUTSIDE RECORDS SUMMARY | 2022-05-28 06:43 | XMS_ITS | Encounter Summary ---
:1945 Author Organization [facility] Address [address] [place] [address] Care Team Providers Name Role Phone Shayla Alford D.O. Primary Care Provider [phone] Encounter Details Date Type Department Care Team Description 12/12/2020 Hospital Encounter Department of [place] Diabet es Mellitus Laboratory Medicine n, Gianna Mcguire Type 2 Without in [place], [address] Complication (H CC) [address] [place] [phone] Social History Tobacco Use [...] have completed or the highest Martin, MEd, STOCKROOM CLERK, CAYDEN) degree you have received? Sex [...] by mouth tabletIndications: daily. 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) ([facility]), Diabetes Mellitus Type 2 ([facility]), Hypertension Essential Primary levothyroxine (SYNTHROID, Take 1 [...] City/State/ZIP Code Phon e Number [facility]- [address] [place] [address] [place] [address] System in [place] [address] [facility] documented in this encounter Visit Diagnoses Diagnosis Diabetes Mellitus Type 2 Without Complic ation (HCC) documented in this encounter Additional Health Concerns Assessment Noted Time PHQ-9 Depression Total Score: 18 04/28/2018 11:27 AM C DT documented as of this encounter Care Teams Farmer Diversified Crops Relationship Specialty Start Date End Date Shayla Alford D.O. PCP - General Internal Medicine 05/22/202199 [place] [address] documented as of this encounter
--- OUTSIDE RECORDS SUMMARY | 2022-05-28 06:44 | XMS_ITS | Encounter Summary ---
:1945 Author Organization [facility] Address [address] [place] [address] Care Team Providers Name Role Phone Shayla Alford D.O. Primary Care Provider [phone] Reason for Referral Outpatient (Routine) - Closed Specialty Diagnoses / Procedures Referred By Contact Refer red To Contact Diagnoses Chronic Systolic (Congestive) Heart Failure (HCC) Manuel Evans M.D. [facility] Procedures ECG Heart rhythm monitor (Holter) [address] [place] [address] Referral ID Status Reason Start Date Expiration Date Visits Requ ested Visits Authorized [id number] Closed 11/17/2020 11/17/2021 1 1 CAL SOCIAL WORKER Reason for Visit Outpatient (Routine) - Closed Specialty Diagnoses / Procedures Referred By Contact Refer red To Contact Cardiovascular Disease Diagnoses Chronic Systolic (Congestive) Heart Failure (HCC) Manuel Evans [facility] Felicita Whyte [address] [place] [address] Referral ID Status Reason Start Date Expiration Date Visits Requ ested Visits Authorized [id number] Closed 06/06/2020 06/06/2021 1 1 Encounter Details Date Type Department Care Team Description 11/17/2020 Office Visit Department of Manuel Evans Sy stolic (Congestive) Heart Failure (HCC) (Primary Dx); Cardiovascular Medicine Pato Barber Hypertension Essential Primary; in [facility] rotary soil stabilizer [address] Beat Premature Ventricular; [address] [place], [place] [phone] [phone] Social History Tobacco Use Types Packs/Day Years [...] do you attend anabaptist or Never 2021 gnosticist services? Do you [...] completed or the highest Martin, MEd, CORPORATE EXECUTIVE CHEF, CAYDEN) degree you have received? Sex Assigned at Date Recorded Male 05/21/2018 2:34 PM CDT documented as of this encounter Last Filed Vital Signs Vital Sign Reading Time Taken Comments Blood Pressure 148/75 11/17/2020 2:22 PM MEDICAL SOCIAL WORKER Pulse 50 11/17/2020 2:22 PM MEDICAL SOCIAL WORKER Temperature - - Respiratory Rate - - Oxygen Saturation - - Inhaled Oxygen Concentration - - Weight 97.6 kg (215 lb 2.7 oz) 11/17/2020 2:22 PM MEDICAL SOCIAL WORKER Height 188 cm (6' 2.02) 11/17/2020 2:22 PM MEDICAL SOCIAL WORKER Body Mass Index 27.61 11/17/2020 2:22 PM MEDICAL SOCIAL WORKER documented in this encounter Consult Notes Manuel [...] Elevated RVSP 45. Mitral valve disease with yfbg-om-fvhmolle stenosis. ?? ASSESSMENT / PLAN #1 Chronic [...] in 3 months. Manuel Evans M.D. 11/17/20 CAL SOCIAL WORKER documented in this encounter Plan of Treatment Not on filedocumented as of this encounter Procedures Procedure Name Priority Date/Time Associated Diagnosis Comme nts T4 (THYROXINE), TOT Routine 11/17/2020 8:51 AM Hypothyroidism Results for this ONLY, S MEDICAL SOCIAL WORKER procedure are i n the results section. documented in this encounter Results HOLTER MONITOR - IN CLINIC CRISIS SPECIALIST (11/17/2020 3:20 PM MEDICAL SOCIAL WORKER) [facility] gist Method Time Signature Pause Longest 2.14 s HOLTER SENTINEL VE Max Per [id number] HOLTER Hour Time SENTINEL VE Total Beats 256 count HOLTER SENTINEL SVE Max Per 19 count HOLTER Hour SENTINEL Mean Heart 56 bpm HOLTER Rate SENTINEL Max Heart Rate [id number] HOLTER Time SENTINEL Max Heart Rate 83 bpm HOLTER SENTINEL SVE Percent 0 percent HOLTER Beats SENTINEL SVT Runs 0 count HOLTER SENTINEL Analysis Date 20,210,222 HOLTER SENTINEL Holter Pauses 40 count HOLTER SENTINEL Bradycardia 0 count HOLTER Runs SENTINEL Min Heart Rate 47 bpm HOLTER SENTINEL Tachycardia 0 count HOLTER Runs SENTINEL VT Runs 0 count HOLTER SENTINEL Recording Date [id number] HOLTER SENTINEL VE Percent 0 percent HOLTER Beats SENTINEL AF Count 0 count HOLTER SENTINEL SVE Max Per [id number] HOLTER Hour Time SENTINEL Min Heart Rate [id number] HOLTER Time SENTINEL SVE Total 118 count HOLTER Beats SENTINEL VE Max Per 28 count HOLTER Hour SENTINEL Specimen (Source) Anatomical Collection Method Collection Time Re ceived Time Location / / Volume Laterality 11/17/2020 3:18 PM MEDICAL SOCIAL WORKER Narrative This result has an attachment that is no t available. Manuel Evans M.D. CV CARDIAC SERVICES PROCEDUR ES Performing Organization Address City/State/ZIP Code Phon e Number HOLTER SENTINEL HOLTER SENTINEL NA (ABNORMAL) T4 (Thyroxine), Total Only (11/17/2020 8:51 AM MEDICAL SOCIAL WORKER) athologist Signature T4 4.4 (L) 4.5 - 11.7 11/17/2020 DTL (Thyroxine), mcg/dL 3:55 PM MEDICAL SOCIAL WORKER Total Only, S Specimen Anatomical Collection Method Collection Time Receive d Time (Source) Location / / Volume Laterality Blood (Blood, 11/17/2020 8:51 AM 11/17/19 21 3:13 Venous) MEDICAL SOCIAL WORKER PM MEDICAL SOCIAL WORKER Manuel Evans M.D. LAB BLOOD ADD-ON Performing Organization Address City/State/ZIP Code Phon e Number [facility] - [address] [place], [place] [address] [facility] [place] [address] [facility] [facility] [address] documented in this encounter Visit Diagnoses Diagnosis Chronic Systolic (Congestive) Heart Fail ure (HCC) - Primary Hypertension Essential Primary Beat Premature Ventricular Hypothyroidism documented in this encounter Additional Health Concerns Assessment Noted Time PHQ-9 Depression Total Score: 18 04/28/2018 11:27 AM C DT documented as of this encounter Care Teams Funeral Assistant Relationship Specialty Start Date End Date Shayla Alford D.O. PCP - General Internal Medicine 05/22/[address] [address] documented as of this encounter
--- OUTSIDE RECORDS SUMMARY | 2022-05-28 06:44 | XMS_ITS | Encounter Summary ---
:1945 Author Organization [facility] Address [address] [place] [address] Care Team Providers Name Role Phone Shayla Alford D.O. Primary Care Provider [phone] Reason for Visit MRI/CAT/PET Scan (Routine) - Closed Specialty Diagnoses / Procedures Referred By Contact Refer red To Contact Radiology Diagnoses Unsteadiness Gait Disorder Non Orthopedic Yen Buchanan M.D., [facility] [place] Region Procedures MR Brain without IV Contrast MR Brain without and with IV Contrast MR Brain without IV Contrast ME MRI BRAIN WO CNTRST HC MRI BRAIN WO CNTRST ME MRI BRAIN WO/W CNTRST ME MRI BRAIN WO CNTRST M.B.A. [address] [place] [address] Referral ID Status Reason Start Date Expiration Date Visits Requ ested Visits Authorized [id number] Closed 09/13/2020 09/13/2021 1 1 Encounter Details Date Type Department Care Team Description 10/19/2020 Hospital Encounter Department of Chase Estes, Unsteadi ness Gait Radiology in Jesus Barlow Non [place], [place] Pato, M.B.A. Orthopedic [address] [facility] [address] [place], [place] [phone] Social History Tobacco Use Types Packs/Day [...] completed or the highest Martin, MEd, GLASS ROBOT OPERATOR, CAYDEN) degree you have received? Sex [...] by mouth tabletIndications: daily. 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 documented in this encounter Results MR Brain without IV Contrast (10/19/2020 10:13 AM STAGE MANAGER) Anatomical Region Laterality Modality Head, Brain, Neuroradiology RST LOS, Neuroradiology ARZ N/A Magnetic Resonance LOS, Neuroradiology FLA LOS Specimen (Source) Anatomical Collection Method Collection Time Re ceived Time Location / / Volume Laterality 10/19/2020 12:52 PM STAGE MANAGER Impressions 10/19/2020 1:03 PM STAGE MANAGER 1. No acute infarct. No new finding to explain clinical presentation. 2. New right ostiomeatal complex pattern sinus obstruction with fluid in the right frontal sinus, anterior ethmoid ai r cells right maxillary sinus. Direct visualization suggested to exclude obstr ucting lesion. Narrative 10/19/2020 1:03 PM STAGE MANAGER EXAM: MR BRAIN WITHOUT IV CONTRAST COMPARISON: 09/17/2017 FINDINGS: Mild/moderate generalized supr atentorial and infratentorial volume loss with ex vacuo dilation of ventricle s. Patchy T2 hyperintensities compatible with [id number] leukoaraiosis. Pos toperative change both globes. Chronic [...] ventricle s. Patchy T2 hyperintensities compatible with yasy-nm-ajkvswlm leukoaraiosis. Pos toperative change both globes. Chronic [...] as of this encounter Care Teams Curriculum Coach Relationship Specialty Start Date End Date Shayla Alford D.O. PCP - General Internal Medicine 05/22/[address] [address] documented as of this encounter
--- OUTSIDE RECORDS SUMMARY | 2022-05-28 06:44 | XMS_ITS | Encounter Summary ---
:1945 Author Organization [facility] Address [address] [place] [address] Care Team Providers Name Role Phone Shayla Alford D.OMauro Primary Care Provider [phone] Encounter Details Date Type Department Care Team Description 10/27/2020 Hospital Encounter Department of Alexys Diabete s Mellitus Type Laboratory Medicine Shayla queen, 2 Hyperg lycemia (HCC) in [facility] [address] [place] [phone] Social History Tobacco Use Types Packs/Day [...] do you attend jain or Never 2021 jain services? Do you [...] have completed or the highest Martin, MEd, FRUIT THINNER, CAYDEN) degree you have received? Sex [...] by mouth tabletIndications: daily. Atherosclerotic Heart Disease [place] Coronary Artery With Other Forms Angina Pectoris [...] Diabetes Mellitus Type Results for this AM COUNTRY DIRECTOR 2 Hyperglycemia (HCC) proced ure are in the results section. documented in this encounter Results (ABNORMAL) Albumin, Random, Urine (10/27/2020 10:32 AM COUNTRY DIRECTOR) [facility] gist Method Time Signature Microalbumin 124.0 mg/L 10/27/2020 [place] 12:15 PM COUNTRY DIRECTOR Creatinine 26 mg/dL 10/27/2020 [place] 11:30 AM COUNTRY DIRECTOR Albumin/Creatinin 477 (H) <17 mg/g 10/27/2020 [place] e Ratio 12:15 PM COUNTRY DIRECTOR Specimen Anatomical Collection Method Collection Time Receive d Time (Source) Location / / Volume Laterality Urine (Urine, 10/27/2020 10:32 10/27/2020 Clean Catch) AM COUNTRY DIRECTOR 10:43 AM COUNTRY DIRECTOR Shayla Alford D.O. LAB URINE ORDERABLES Performing Organization Address City/State/ZIP Code Phon e Number [facility]- [address] [place] [address] [place] [address] System in [place] [address] documented in this encounter Visit Diagnoses Diagnosis Diabetes Mellitus Type 2 Hyperglycemia ( HCC) documented in this encounter Additional Health Concerns Assessment Noted Time PHQ-9 Depression Total Score: 18 04/28/2018 11:27 AM Anna Marie BROUSSARD documented as of this encounter Care Teams Dyer And Washer Relationship Specialty Start Date End Date Shayla Alford D.O. PCP - General Internal Medicine 05/22/[address] [phone] documented as of this encounter
--- OUTSIDE RECORDS SUMMARY | 2022-05-28 06:44 | XMS_ITS | Encounter Summary ---
:1945 Author Organization [facility] Address [address] [place] [address] Care Team Providers Name Role Phone Shayla Alford D.O. Primary Care Provider [phone] Encounter Details Date Type Department Care Team Description 11/13/2020 Orders Only [facility] PCP [facility] Sa neno Espinal M.D. [address] [place], [place] [phone] (Wo rk) Social History [...] do you attend latter-day or Never 2021 scientology services? Do you [...] have completed or the highest Martin, Sirena, MACHINE RIVETER, CAYDEN) degree you have received? Sex Assigned at Date Recorded Male 05/21/2018 2:34 PM CDT documented as of this encounter Plan of Treatment Not on filedocumented as of this encounter Visit Diagnoses Not on filedocumented in this encounter Additional Health Concerns Assessment Noted Time PHQ-9 Depression Total Score: 18 04/28/2018 11:27 AM C DT documented as of this encounter Care Teams Pillar Worker Relationship Specialty Start Date End Date Shayla Alford D.O. PCP - General Internal Medicine 05/22/[address] [phone] documented as of this encounter
--- OUTSIDE RECORDS SUMMARY | 2022-05-28 06:44 | XMS_ITS | Encounter Summary ---
:1945 Author Organization [facility] Address [address] [place] [address] Care Team Providers Name Role Phone Shayla Alford D.O. Primary Care Provider Encounter Details Date Type Department Care Team Description 10/27/2020 Hospital Encounter Department of Alexys Failure Heart (HCC); Laboratory Medicine Shayla queen Hyperten sion Essential Primary; in [place] Diabetes Mellitus Type 2 Hyperglycemia ( HCC) [place] [address] [place] [phone] Social History Tobacco Use Types Packs/Day Years [...] do you attend quaker or Never 2021 mandaen services? Do you [...] have completed or the highest Martin, MEd, CATERING TRUCK OPERATOR, CAYDEN) degree you have received? Sex [...] daily SYRINGE-NEEDLE,INSULIN,0. 0 5 ML (INSULIN [facility]) amiodarone (PACERONE) 200 Take 200 mg by [...] by mouth tabletIndications: daily. 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 - 11/01/2020 10:17 AM MAINTENANCE APPRENTICE Please call patient following information. Potassium and [...] by: Shayla Alford D.O. 11/01/20 10:16 AM MAINTENANCE APPRENTICE TENANCE APPRENTICE documented in this encounter Plan of Treatment Not on filedocumented as of this encounter Procedures Procedure Name Priority Date/Time Associated Diagnosis Comme nts HEMOGLOBIN A1C, B Routine 10/27/2020 10:32 Diabetes Mellitus T ype Results for this AM MAINTENANCE APPRENTICE 2 Hyperglycemia (HCC) proced ure are in the results section. BASIC METABOLIC Routine 10/27/2020 10:32 Failure Heart ( HCC) Results for this PANEL, S/P AM MAINTENANCE APPRENTICE Hypertension Essential proce dure are in Primary the results section. documented in this encounter Results (ABNORMAL) Hemoglobin A1c (10/27/2020 10:32 AM MAINTENANCE APPRENTICE) P athologist Signature Hemoglobin A1c, 8.4 (H) 4.2 - 5.6 10/27/2020 [place] B % 11:22 AM MAINTENANCE APPRENTICE Comment: Hemoglobin A1c values greater than or eq ual to 6.5 percent are diagnostic for diabetes mellitus. ?? Diagnosis should be confirmed by repeat testing. ??In diabet ic patients, HbA1c goals should be discussed with healthcar e provider. Specimen Anatomical Collection Method Collection Time Receive d Time (Source) Location / / Volume Laterality Blood (Blood, 10/27/2020 10:32 10/27/2020 Venous) AM MAINTENANCE APPRENTICE 10:43 AM MAINTENANCE APPRENTICE Shayla Alford D.O. LAB BLOOD ADD-ON Performing Organization Address City/State/ZIP Code Phon e Number [facility]- [address] [place] [address] [place] [address] System in [place] [address] (ABNORMAL) Basic Metabolic Panel (10/27/2020 10:32 AM MAINTENANCE APPRENTICE) Analysis Performed At Patho logist Time Signature Potassium, P 4.5 3.6 - 5.2 10/27/2020 [place] mmol/L 11:28 AM MAINTENANCE APPRENTICE Sodium, P 139 135 - 145 10/27/2020 [place] mmol/L 11:28 AM MAINTENANCE APPRENTICE Chloride, P 103 98 - 107 10/27/2020 [place] mmol/L 11:28 AM MAINTENANCE APPRENTICE Bicarbonate, P 26 22 - 29 10/27/2020 [place] mmol/L 11:28 AM MAINTENANCE APPRENTICE Anion Gap, P 10 7 - 15 10/27/2020 [place] 11:28 AM MAINTENANCE APPRENTICE BUN (Blood Urea 50 (H) 8 - 24 10/27/2020 [place] Nitrogen), P mg/dL 11:28 AM MAINTENANCE APPRENTICE Creatinine 1.91 (H) 0.74 - 10/27/2020 [place] 1.35 mg/dL 11:28 AM MAINTENANCE APPRENTICE eGFR-Black/Afri 38 (L) >=60 10/27/2020 OWAT can [place] mL/min/BSA 11:28 AM MAINTENANCE APPRENTICE Comment: ----ADDITIONAL INFORMATION---- Estimated GFR calculated using the 2009 CKD_EPI creatinine equation. eGFR Non-Black/ 33 (L) >=60 mL/min/BSA 10/27/2020 11:28 AM MAINTENANCE APPRENTICE OWAT [place] Comment: ----ADDITIONAL INFORMATION---- Estimated GFR calculated using the 2009 CKD_EPI creatinine equation. Calcium, Total, P 9.1 8.8 - 10.2 mg/dL 10/27/2020 11:2 8 AM MAINTENANCE APPRENTICE OW[place] Glucose, P 141 (H) 70 - 140 mg/dL 10/27/2020 11:28 AM MAINTENANCE APPRENTICE OW[place] Specimen Anatomical Collection Method Collection Time Receive d Time (Source) Location / / Volume Laterality Blood (Blood, 10/27/2020 10:32 10/27/2020 Venous) AM MAINTENANCE APPRENTICE 10:43 AM MAINTENANCE APPRENTICE Shayla Alford D.O. LAB BLOOD ADD-ON Performing Organization Address City/State/ZIP Code Phon e Number [facility]- [address] [place] [address] [facility] [place] [address] System in [place] [address] documented in this encounter Visit Diagnoses Diagnosis Failure Heart (HCC) Hypertension Essential Primary Diabetes Mellitus Type 2 Hyperglycemia ( HCC) documented in this encounter Additional Health Concerns Assessment Noted Time PHQ-9 Depression Total Score: 18 04/28/2018 11:27 AM C DT documented as of this encounter Care Teams Technical Artist Relationship Specialty Start Date End Date Shayla Alford D.O. PCP - General Internal Medicine 05/22/[address] [place] [address] documented as of this encounter
--- OUTSIDE RECORDS SUMMARY | 2022-05-28 06:44 | XMS_ITS | Encounter Summary ---
:1945 Author Organization [facility] Address [address] [place] [address] Care Team Providers Name Role Phone Shayla Alford D.O. Primary Care Provider [phone] Reason for Visit Reason Comments Pancreas Medication Question Encounter Details Date Type Department Care Team Description 10/16/2020 Clinical Division of Parminder Pancreas; Communication Gastroenterology in [place], [place] M.D. Question [address] [facility] [address] [place] [address] [place] [address] Social History Tobacco Use Types Packs/Day Years [...] do you attend moravian or Never 2021 mandaeism services? Do you [...] have completed or the highest Martin, MEd, ROBOTICS SPECIALIST, CAYDEN) degree you have received? Sex [...] nursing clinical judgement and provider Dr. Zurita MAKER APPRENTICE Telephone Encounter - Daphney Batista R.N. - 11/03/2020 8:55 AM MOLD MAKER APPRENTICE SUBJECTIVE CHIEF COMPLAINT / REASON FOR CALL [...] nursing clinical judgement and provider Dr. Zurita MAKER APPRENTICE Telephone Encounter - Daphney Batista RShama. - 10/20/2020 10:44 AM MOLD MAKER APPRENTICE SUBJECTIVE CHIEF COMPLAINT / REASON FOR CALL [...] following references were used: nursing clinical judgement MAKER APPRENTICE documented in this encounter Plan of Treatment Not on filedocumented as of this encounter Visit Diagnoses Not on filedocumented in this encounter Additional Health Concerns Assessment Noted Time PHQ-9 Depression Total Score: 18 04/28/2018 11:27 AM C DT documented as of this encounter Care Teams Recreation Center Director Relationship Specialty Start Date End Date Shayla Alford D.O. PCP - General Internal Medicine 05/22/20 [address] [place] [phone] documented as of this encounter
--- OUTSIDE RECORDS SUMMARY | 2022-05-28 06:44 | XMS_ITS | Encounter Summary ---
:1945 Author Organization [facility] Address [address] [place] [address] Care Team Providers Name Role Phone Shayla Alford D.O. Primary Care Provider Reason for Referral Outpatient (Routine) - Closed Specialty Diagnoses / Procedures Referred By Contact Refer red To Contact Community Internal Diagnoses Failure Heart (HCC) Hypertension Essential Primary Diabetes Mellitus Type 2 Hyperglycemia (HCC) Pancreatitis Chronic Recurrent (HCC) ARMAAN Alford [facility] Tulio Mcguire [address] [place] [phone] Referral ID Status Reason Start Date Expiration Date Visits Requ ested Visits Authorized [id number] Closed 10/20/2020 10/20/2021 1 1 ICATION DESIGNER Outpatient (Routine) - Closed Specialty Diagnoses / Procedures Referred By Contact Refer red To Contact Pharmacy Diagnoses Diabetes Mellitus Type 2 Hyperglycemia (HCC) Shayla Alford [facility] D.O. [address] [place] [phone] Referral ID Status Reason Start Date Expiration Date Visits Requ ested Visits Authorized [id number] Closed 10/20/2020 10/20/2021 1 1 ICATION DESIGNER Reason for Visit Outpatient (Routine) - Closed Specialty Diagnoses / Procedures Referred By Contact Refer red To Contact [facility] Internal ARMAAN Alford [facility] Tulio Mcguire [address] [place] [address] Referral ID Status Reason Start Date Expiration Date Visits Requ ested Visits Authorized [id number] Closed 10/12/2020 10/12/2021 1 1 Encounter Details Date Type Department Care Team Description 10/20/2020 Office Visit Department of Internal Rocío Di abetes Mellitus Type 2 Hyperglycemia (HCC) (Primary Dx); Medicine in [place], , Coleman Mcguire Failure Heart (HCC); [place] [address] Hypertension Essential Primary; [address] [place], [place] Pancreatitis Chronic Recurre nt (HCC); [place] [address] Hyperlipidemia; [phone] Malignant Neoplasm Of Bladde r [...] do you attend congregation or Never 2021 quaker services? Do you [...] have completed or the highest Martin, MEd, TAILMAN, CAYDEN) degree you have received? Sex Assigned at Date Recorded Male 05/21/2018 2:34 PM CDT documented as of this encounter Last Filed Vital Signs Vital Sign Reading Time Taken Comments Blood Pressure 146/70 10/20/2020 8:48 AM APPLICATION DESIGNER Pulse 52 10/20/2020 8:48 AM APPLICATION DESIGNER Temperature 36.2 ??C (97.1 ??F) 10/20/2020 8:48 AM APPLICATION DESIGNER Respiratory Rate 16 10/20/2020 8:48 AM APPLICATION DESIGNER Oxygen Saturation - - Inhaled Oxygen Concentration - - Weight 99.2 kg (218 lb 11.1 oz) 10/20/2020 8:48 AM APPLICATION DESIGNER Height 189 cm (6' 2.41) 10/20/2020 8:48 AM APPLICATION DESIGNER Body Mass Index 27.77 10/20/2020 8:48 AM APPLICATION DESIGNER documented in this encounter Progress Notes Shayla [...] I did offer a referral to a Production Graphic Designer which he declines. I also offered a [...] Failure Heart (HCC). 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 The creation of this recordis based on the scribe remotely listening to the visit and the provider's statements to them. This do cument has been checked and approved by the attending provider. Electronically signed by: Shayla Alford D.O. 10/20/20 2:11 PM APPLICATION DESIGNER ICATION DESIGNER documented in this encounter Plan of [...] Results (ABNORMAL) Hemoglobin A1c (10/27/2020 10:32 AM APPLICATION DESIGNER) P athologist Signature Hemoglobin A1c, 8.4 (H) 4.2 - 5.6 10/27/2020 [place] B % 11:22 AM APPLICATION DESIGNER Comment: Hemoglobin A1c values greater than or eq ual to 6.5 percent are diagnostic for diabetes mellitus. ?? Diagnosis should be confirmed by repeat testing. ??In diabet ic patients, HbA1c goals should be discussed with healthcar e provider. Specimen Anatomical Collection Method Collection Time Receive d Time (Source) Location / / Volume Laterality Blood (Blood, 10/27/2020 10:32 10/27/2020 Venous) AM APPLICATION DESIGNER 10:43 AM APPLICATION DESIGNER Shayla Alford D.O. LAB BLOOD ADD-ON Performing Organization Address City/State/ZIP Code Phon e Number [facility]- [address] [place] [address] [facility] [place] [address] System in [place] [address] (ABNORMAL) Basic Metabolic Panel (10/27/2020 10:32 AM APPLICATION DESIGNER) Analysis Performed At Patho logist Time Signature Potassium, P 4.5 3.6 - 5.2 10/27/2020 [place] mmol/L 11:28 AM APPLICATION DESIGNER Sodium, P 139 135 - 145 10/27/2020 [place] mmol/L 11:28 AM APPLICATION DESIGNER Chloride, P 103 98 - 107 10/27/2020 [place] mmol/L 11:28 AM APPLICATION DESIGNER Bicarbonate, P 26 22 - 29 10/27/2020 [place] mmol/L 11:28 AM APPLICATION DESIGNER Anion Gap, P 10 7 - 15 10/27/2020 [place] 11:28 AM APPLICATION DESIGNER BUN (Blood Urea 50 (H) 8 - 24 10/27/2020 [place] Nitrogen), P mg/dL 11:28 AM APPLICATION DESIGNER Creatinine 1.91 (H) 0.74 - 10/27/2020 [place] 1.35 mg/dL 11:28 AM APPLICATION DESIGNER eGFR-Black/Afri 38 (L) >=60 10/27/2020 [facility] can [place] mL/min/BSA 11:28 AM APPLICATION DESIGNER Comment: ----ADDITIONAL INFORMATION---- Estimated GFR calculated using the 2009 CKD_EPI creatinine equation. eGFR Non-Black/ 33 (L) >=60 mL/min/BSA 10/27/2020 11:28 AM APPLICATION DESIGNER [facility] [place] Comment: ----ADDITIONAL INFORMATION---- Estimated GFR calculated using the 2009 CKD_EPI creatinine equation. Calcium, Total, P 9.1 8.8 - 10.2 mg/dL 10/27/2020 11:2 8 AM APPLICATION DESIGNER [facility] Glucose, P 141 (H) 70 - 140 mg/dL 10/27/2020 11:28 AM APPLICATION DESIGNER [facility] Specimen Anatomical Collection Method Collection Time Receive d Time (Source) Location / / Volume Laterality Blood (Blood, 10/27/2020 10:32 10/27/2020 Venous) AM APPLICATION DESIGNER 10:43 AM APPLICATION DESIGNER Shayla Alford D.O. LAB BLOOD ADD-ON Performing Organization Address City/[facility]/ZIP Code Phon e Number [facility]- [address] [place] [address] [place] [address] System in [place] [address] (ABNORMAL) Albumin, Random, Urine (10/27/2020 10:32 AM APPLICATION DESIGNER) [facility] gist Method Time Signature Microalbumin 124.0 mg/L 10/27/2020 [place] 12:15 PM APPLICATION DESIGNER Creatinine 26 mg/dL 10/27/2020 [place] 11:30 AM APPLICATION DESIGNER Albumin/Creatinin 477 (H) <17 mg/g 10/27/2020 [facility] e Ratio 12:15 PM APPLICATION DESIGNER Specimen Anatomical Collection Method Collection Time Receive d Time (Source) Location / / Volume Laterality Urine (Urine, 10/27/2020 10:32 10/27/2020 Clean Catch) AM APPLICATION DESIGNER 10:43 AM APPLICATION DESIGNER Shayla Alford D.O. LAB URINE ORDERABLES Performing Organization Address City/[facility]/ZIP Code Phon e Number [facility]- [address] [place] [address] [facility] [place] [address] System in [place] [address] documented in this encounter Visit [...] documented as of this encounter Care Teams Vice President For Philanthropy Relationship Specialty Start Date End Date Shayla Alford D.O. PCP - General Internal Medicine 05/22/20 [address] [facility] [place] [address] documented as of this encounter
--- OUTSIDE RECORDS SUMMARY | 2022-05-28 06:44 | XMS_ITS | Encounter Summary ---
:1945 Author Organization [facility] Address [address] [place] [address] Care Team Providers Name Role Phone Shayla Alford D.O. Primary Care Provider [phone] Reason for Referral Outpatient (Routine) - Closed Specialty Diagnoses / Procedures Referred By Contact Refer red To Contact Diagnoses Chronic Systolic (Congestive) Heart Failure (HCC) Manuel Evans M.D. [facility] Procedures Echo Transthoracic (TTE) [address] [place] [address] Referral ID Status Reason Start Date Expiration Date Visits Requ ested Visits Authorized [id number] Closed 06/06/2020 06/06/2021 1 1 COMPOSITOR Reason for Visit Outpatient (Routine) - Closed Specialty Diagnoses / Procedures Referred By Contact Refer red To Contact Diagnoses Chronic Systolic (Congestive) Heart Failure (HCC) Manuel Evans M.D. [facility] Procedures Echo Transthoracic (TTE) [address] [place], [place] [address] Referral ID Status Reason Start Date Expiration Date Visits Requ ested Visits Authorized [id number] Closed 06/06/2020 06/06/2021 1 1 Encounter Details Date Type Department Care Team Description 11/17/2020 Hospital Encounter Department of Cristina Chronic Systolic Cardiovascular Manuel Barber M.D. (Congestive) Heart Diseases in [place] [address] Failure (HCC) [place], [place] [address] [place] [address] [place], [place] [phone] (Work) [phone] Social History Tobacco Use Types Packs/Day Years [...] have completed or the highest Martin, MEd, CHECKER STOCKER, CAYDEN) degree you have received? Sex Assigned [...] by mouth tabletIndications: daily. 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 documented in this encounter Results (TTE) 2D ECHO DOPPLER COLOR (11/17/2020 11:23 AM AD COMPOSITOR) [facility] Method Time Signature Ejection Fraction 50 [...] / / Volume Laterality 11/17/2020 9:48 AM AD COMPOSITOR Impressions 11/17/2020 2:48 PM AD COMPOSITOR Intravenous Lumason ultrasound enhancement agent(s) administered to [...] effusion. For the complete report, see the [employer] Documents. Narrative 11/17/2020 2:48 PM AD COMPOSITOR For the complete report, see the [employer] Documents. Final Impressions 1. Mild-moderately enlarged left [...] sulfur hexafluoride microspheres Given 11/17/2020 11:53 AM AD COMPOSITOR 1 .6 mL injection (LUMASON) intravenous, As needed, contrast, Starting on Fri11/17/20 at 1153, See protocol. Reconstitute each 25 mg vial with 5 mL NS. documented in this encounter Additional Health Concerns Assessment Noted Time PHQ-9 Depression Total Score: 18 04/28/2018 11:27 AM C DT documented as of this encounter Care Teams Mechanic Recovery Relationship Specialty Start Date End Date Shayla Alford D.O. PCP - General Internal Medicine 05/22/[address] [phone] documented as of this encounter
--- OUTSIDE RECORDS SUMMARY | 2022-05-28 06:44 | XMS_ITS | Encounter Summary ---
:1945 Author Organization [facility] Address [address] [place] [address] Care Team Providers Name Role Phone Shayla Alford D.O. Primary Care Provider [phone] Encounter Details Date Type Department Care Team Description 10/12/2020 Hospital Encounter Department of [place] Diabet es Mellitus Laboratory Medicine n, Gianna Mcguire Type 2 Without in [place], [address] Complication (H CC) [place] [address] [place] [address] Social History Tobacco Use [...] have completed or the highest Martin, MEd, LOCKSTITCH COLLAR SETTER, CAYDEN) degree you have received? Sex [...] by mouth tabletIndications: daily. 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 documented in this encounter Results (ABNORMAL) Hemoglobin A1c (10/12/2020 9:15 AM AIRCRAFT SKIN BURNISHER) P athologist Signature Hemoglobin A1c, 8.4 (H) 4.2 - 5.6 10/12/2020 [facility] B % 9:44 AM AIRCRAFT SKIN BURNISHER Comment: Hemoglobin A1c values greater than or eq ual to 6.5 percent are diagnostic for diabetes mellitus. ?? Diagnosis should be confirmed by repeat testing. ??In diabet ic patients, HbA1c goals should be discussed with healthcar e provider. Specimen Anatomical Collection Method Collection Time Receive d Time (Source) Location / / Volume Laterality Blood (Blood, 10/12/2020 9:15 AM 10/12/19 9:27 Venous) AIRCRAFT SKIN BURNISHER AM AIRCRAFT SKIN BURNISHER Shayla Alford D.O. LAB BLOOD ADD-ON Performing Organization Address City/State/ZIP Code Phon e Number [facility]- [address] [place] [address] [facility] [place] [address] System in [place] [address] documented in this encounter Visit Diagnoses Diagnosis Diabetes Mellitus Type 2 Without Complic ation (HCC) documented in this encounter Additional Health Concerns Assessment Noted Time PHQ-9 Depression Total Score: 18 04/28/2018 11:27 AM C DT documented as of this encounter Care Teams Clinic Md Associate Relationship Specialty Start Date End Date Shayla Alford D.O. PCP - General Internal Medicine 05/22/[address] [phone] documented as of this encounter
--- OUTSIDE RECORDS SUMMARY | 2022-05-28 06:44 | XMS_ITS | Encounter Summary ---
:1945 Author Organization [facility] Address [address] [place] [address] Care Team Providers Name Role Phone Shayla Alford D.O. Primary Care Provider [phone] Reason for Visit Outpatient (Routine) - Closed Specialty Diagnoses / Procedures Referred By Contact Refer red To Contact Pharmacy Diagnoses Diabetes Mellitus Type 2 Hyperglycemia (HCC) Shayla Alford [facility] [address] [facility] [address], [place] [address] Referral ID Status Reason Start Date Expiration Date Visits Requ ested Visits Authorized [id number] Closed 10/20/2020 10/20/2021 1 1 Encounter Details Date Type Department Care Team Description 11/08/2020 Office Visit Department of Family Shayla Murillo D.O. [address], [place] [address] Diabetes Mellitus Type 2 Hyperglycemia ( HCC) (Primary Dx); Medicine in [place] Lu, Pharm.DMauro [address], [place] [address] Medication Management Issue [place], [place] [address] [place] [address] Social History Tobacco Use Types Packs/Day [...] do you attend scientologist or Never 2021 confucianist services? Do you [...] have completed or the highest Martin, MEd, REFUELING RAMPMAN, CAYDEN) degree you have received? Sex Assigned [...] expiration date and get new meter from [place] if ) Follow-up in 2-3 weeks for glucose review Alysha Lopez Pharm.D. Clinical Pharmacist 11/08/2020 NG CASHIER documented in this encounter Consult Notes Alysha Lu Pharm.D. - 11/08/2020 1:15 PM CST Medication Therapy Management SUBJECTIVE Jonnathan Costa is a 75 y.o. male, who is seen today by [facility] Pharmacist for targeted medicationreview of diabetes. He was referred by Shayla Alford D.O. for pharmacist management of diabetes as outlined in nuey-[id number]/video encounter on 10/20/2020. Patient was at the [...] accomplished by review of all prescription medications, [id number] medications and vitamin and supplements from patient's [...] glucose readings and potential dose adjustments. Patient???s [id number] is due on December 2020. Plan: The [...] referring provider via an electronically routed chart. NG CASHIER documented in this encounter Plan of Treatment Not on filedocumented as of this encounter Visit Diagnoses Diagnosis Diabetes Mellitus Type 2 Hyperglycemia ( HCC) - Primary Medication Management Issue documented in this encounter Additional Health Concerns Assessment Noted Time PHQ-9 Depression Total Score: 18 04/28/2018 11:27 AM C DT documented as of this encounter Care Teams Dust Collector Ore Crushing Relationship Specialty Start Date End Date Shayla Alford D.O. PCP - General Internal Medicine 05/22/[address] [phone] documented as of this encounter
--- OUTSIDE RECORDS SUMMARY | 2022-05-28 06:44 | XMS_ITS | Encounter Summary ---
:1945 Author Organization [facility] Address [address] [place] [address] Care Team Providers Name Role Phone Shayla Alford D.O. Primary Care Provider [phone] Encounter Details Date Type Department Care Team Description 10/19/2020 Hospital Encounter Department of [facility], [facility] Heart ([facility]) Laboratory Medicine laron Barlow M.D., M.B.A. [place] [address] [facility] [place] [address] Social History Tobacco Use [...] do you attend congregation or Never 2021 mandaeism services? Do you belong to any clubs or No 10/09/2021 organizations such as congregation groups, unions, [employer] or athletic groups, or school groups? How [...] have completed or the highest Martin, MEd, MOUNTAIN SERVICES MANAGER, CAYDEN) degree you have received? [...] tabletIndications: daily. 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 documented in this encounter Results Magnesium (10/19/2020 9:00 AM MILITARY ANALYST) P athologist Signature Magnesium, P 1.8 1.7 - 2.3 10/19/2020 [facility] mg/dL 10:08 AM MILITARY ANALYST Specimen Anatomical Collection Method Collection Time Receive d Time (Source) Location / / Volume Laterality Blood (Blood, 10/19/2020 9:00 AM 10/19/19 9:03 Venous) MILITARY ANALYST AM MILITARY ANALYST Yen Buchanan M.D., M.B.A. LAB BLOOD ADD-ON Performing Organization Address City/State/ZIP Code Phon e Number [facility] [address] [place] [address] [facility] [place] [address] System in [place] [address] documented in this encounter Visit Diagnoses Diagnosis Failure Heart (HCC) documented in this encounter Additional Health Concerns Assessment Noted Time PHQ-9 Depression Total Score: 18 04/28/2018 11:27 AM C DT documented as of this encounter Care Teams Irs Agent Relationship Specialty Start Date End Date Bakkali-Derksen, Salwa, D.O. PCP - General Internal Medicine 05/22/202199 [address] [facility] [place] [address] documented as of this encounter
--- OUTSIDE RECORDS SUMMARY | 2022-05-28 06:45 | XMS_ITS | Encounter Summary ---
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 [place] [address] [place] [phone] Social History Tobacco Use [...] do you attend religious or Never 2021 protestant services? Do you [...] have completed or the highest Martin, MEd, LAND LEASE INFORMATION CLERK, CAYDEN) degree you have received? Sex [...] by mouth tabletIndications: daily. 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 As directed per DR capsule akuiva-gswzcmgc-bwcsxfy Take 1 capsule by 0 10/12/2020 (CREON) mouth as needed for 6,000-19,000-30,[address] capsule uvngeu-bfgmzkar-tduhorw Take 1 capsule by 0 10/12/2020 (nmnddw-epxcvhdr-xjzwtuk) mouth 3 (three) 6,000-19,000-30,000 Unit times a [...] Name Priority Date/Time Associated Diagnosis Comme nts CO T4 FREE Routine 07/01/2020 10:01 Results for [...] Kidney the results Disease section. Hyperglycemic (HCC) CO MICROSOMAL AB EA/TPO Routine 07/01/2020 9:58 R [...] City/State/ZIP Code Phon e Number [facility]- [address] [place] [address] [facility] [place] [place] [address] System in [place] [address] (ABNORMAL) Thyroid Function Carver (07/01/2020 10:01 AM CDT) athologist Signature TSH, [...] D.O. LAB BLOOD ADD-ON Performing Organization Address City/[facility]/ZIP Code Phon e Number [facility]- [address] [place] [address] [place] [address] System in [place] [address] (ABNORMAL) ALT (Alanine Aminotransferase) (07/01/2020 10:01 AM CDT) [facility] Method Time Signature Alanine 65 (H) 7 - 55 07/01/2020 [place] Aminotransferase U/L 11:26 AM CDT (ALT), P Specimen Anatomical Collection Method Collection Time Receive d Time (Source) Location / / Volume Laterality Blood (Blood, 07/01/2020 10:01 07/01/2020 Venous) AM CDT 10:07 AM CDT Shayla Alford D.O. LAB BLOOD ADD-ON Performing Organization Address City/State/ZIP Code Phon e Number [facility]- [address] [place] [address] [place] [address] System in [place] [address] AST (Aspartate Aminotransferase) (07/01/2020 10:01 AM CDT) [facility] Method Time Signature Aspartate 38 8 - 48 07/01/2020 [place] Aminotransferase U/L 11:26 AM CDT (AST), P Specimen Anatomical Collection Method Collection Time Receive d Time (Source) Location / / Volume Laterality Blood (Blood, 07/01/2020 10:01 07/01/2020 Venous) AM CDT 10:07 AM CDT Shayla Alford D.O. LAB BLOOD ADD-ON Performing Organization Address City/State/ZIP Code Phon e Number [facility]- [address] [place] [address] [place] [address] System in [place] [address] (ABNORMAL) Hemoglobin A1c (07/01/2020 [...] City/State/ZIP Code Phon e Number [facility]- [address] [place] [address] [place] [address] System in [place] [address] Thyroperoxidase (TPO) Antibodies, Serum [...] Organization Address City/State/ZIP Code Phon e Number [facility] - [address] [place], [place] [address] [facility] [place] [address] Laboratories-[facility] [address] documented in this encounter Visit Diagnoses Diagnosis Diabetes Mellitus Type 2 With Diabetic C hronic Kidney Disease Hyperglycemic (HCC) High Risk Medication documented in this encounter Additional Health Concerns Assessment Noted Time PHQ-9 Depression Total Score: 18 04/28/2018 11:27 AM C DT documented as of this encounter Care Teams Master Welder Relationship Specialty Start Date End Date Shayla Alford D.O. PCP - General Internal Medicine 05/22/20 [address] [place] [phone] documented as of this encounter
--- OUTSIDE RECORDS SUMMARY | 2022-05-28 06:45 | XMS_ITS | Encounter Summary ---
:1945 Author Organization [facility] Address [address] [place] [address] Care Team Providers Name Role Phone Shayla Alford D.O. Primary Care Provider [phone] Reason for Visit Reason Onset Date Comments Outpatient COVID-19 Testing 08/21/2020 Encounter Details Date Type Department Care Team Description 08/21/2020 External Outreach Department of Chad Pettit Infect ion Upper Internal Medicine in J, D.O. Respiratory (Primary [place], [place] [address] Dx) [address] [place] [phone] Social History Tobacco Use [...] do you attend baptist or Never 2021 christianity services? Do you [...] have completed or the highest Martin, MEd, EVP MANAGING DIRECTOR, CAYDEN) degree you have received? Sex Assigned at Date Recorded Male 05/21/2018 2:34 PM CDT documented as of this encounter Progress Notes Deborah Valles, R.N. - 08/21/2020 10:54 AM CST Encounter created for the drive-through COVID-19 testing. L WIRER documented in this encounter Plan of Treatment Not on filedocumented as of this encounter Procedures Procedure Name Priority Date/Time Associated Diagnosis Comme nts SARS CORONAVIRUS-2 Routine 08/21/2020 3:00 PM Infection Upper Results for this RNA, V PANEL WIRER Respiratory procedure are i n the results section. documented in this encounter Results SARS Coronavirus-2 RNA, V Symptomatic (08/21/2020 3:00 PM PANEL WIRER) [facility] Method Time Signature SARS-CoV-2 Swab, 08/22/2020 MK[facility] Specimen Nasopharynx 6:38 AM PANEL WIRER Source SARS CoV-2 Undetected Undetected 08/22/2020 [facility] RNA, TMA 6:38 AM PANEL WIRER Comment: SARS-CoV-2 RNA absent. This result does not rule out COVID-19 in the patient, as the sensitivity of the test depends o n the timing of the specimen collection and the quality of the specim en. Result should be correlated with patient's history and clinical presentat ion. ----ADDITIONAL INFORMATION---- This test is performed using the Aptima SARS-CoV-2 assay ([employer] which has received Emergency Use Authori zation (EUA) by the U.S. Food and Drug Administration. Fact sheets for this Emergency Use Autho rization (EUA) assay can be found at the following links: For Healthcare Providers: https://www.Proc[employer] a.gov/media/194949/download For Patients: https://www.fda.gov/media/ 225873/download Specimen Anatomical Collection Method Collection Time Receive d Time (Source) Location / / Volume Laterality Varies 08/21/2020 3:00 PM 0 9:34 (Nasopharynx) PANEL WIRER PM PANEL WIRER Chad Pettit D.O. LAB MICROBIOLOGY - GENERAL O GERMAN Performing Organization Address City/State/[facility] Phon e Number [facility]- [address] [place] [id number] [place] [address] [place] [address] System in [address] documented in this encounter Visit Diagnoses Diagnosis Infection Upper Respiratory - Primary documented in this encounter Additional Health Concerns Infection Onset Date Last Indicated Resolved Time COVID19 Pending 08/21/2020 08/21/2020 08/22/2020 6:39 AM PANEL WIRER Assessment Noted Time PHQ-9 Depression Total Score: 18 04/28/2018 11:27 AM C DT documented as of this encounter Care Teams Online Community Manager Relationship Specialty Start Date End Date Shayla Alford D.O. PCP - General Internal Medicine 05/22/20 [address] [place] [phone] documented as of this encounter
--- OUTSIDE RECORDS SUMMARY | 2022-05-28 06:45 | XMS_ITS | Encounter Summary ---
:1945 Author Organization [facility] Address [address] [place] [address] Care Team Providers Name Role Phone Shayla Alford D.O. Primary Care Provider [phone] Encounter Details Date Type Department Care Team Description 08/21/2020 Admin Visit Department of Family Medicine, [address] [address] [facility] [phone] Social History Tobacco Use Types Packs/Day Years [...] do you attend gnosticism or Never 2021 bahai services? Do you [...] have completed or the highest Martin, MEd, LICENSING SERVICES CLERK, CAYDEN) degree you have received? Sex Assigned at Date Recorded Male 05/21/2018 2:34 PM CDT documented as of this encounter Plan of Treatment Not on filedocumented as of this encounter Visit Diagnoses Not on filedocumented in this encounter Additional Health Concerns Infection Onset Date Last Indicated Resolved Time COVID19 Pending 08/21/2020 08/21/2020 08/22/2020 6:39 AM TUBE FILLER Assessment Noted Time PHQ-9 Depression Total Score: 18 04/28/2018 11:27 AM C DT documented as of this encounter Care Teams Director Of Casework Relationship Specialty Start Date End Date Shayla Alford D.O. PCP - General Internal Medicine 05/22/20 [address] [place] [address] documented as of this encounter
--- OUTSIDE RECORDS SUMMARY | 2022-05-28 06:45 | XMS_ITS | Encounter Summary ---
:1945 Author Organization [facility] Address [address] [place] [address] Care Team Providers Name Role Phone Shayla Alford D.O. Primary Care Provider [phone] Reason for Visit Reason Comments COVID Inquiry Encounter Details Date Type Department Care Team Description 08/21/2020 Clinical Communication Division of General Prescheduli ng COVID Inquiry Internal Medicine in [place], [place] [address] [place] [address] Social History Tobacco Use Types Packs/Day Years [...] do you attend lutheran or Never 2021 sikh services? Do you [...] completed or the highest Martin, MEd, CHIP SILO TENDER, CAYDEN) degree you have received? Sex Assigned at Date Recorded Male 05/21/2018 2:34 PM CDT documented as of this encounter Miscellaneous Notes Telephone Encounter - Meera Lanier - 08/21/2020 10:39 AM CST COVID DOS/PASS Screening What is the patient requesting?: COVID-19 Testing Only (End screening - follow local process) Plan: Endpoint recommendation: Testing indicated, sent patient to [facility] located at [address] [place] [address]. The entrance is on the north side of the building. You must call [phone] for an appointment time.Testing hours are Daily [...] sending patient for testing in T or [facility], an email notification is required. E MAKER documented in this encounter Plan of Treatment Not on filedocumented as of this encounter Visit Diagnoses Not on filedocumented in this encounter Additional Health Concerns Assessment Noted Time PHQ-9 Depression Total Score: 18 04/28/2018 11:27 AM C DT documented as of this encounter Care Teams Dental Technologist Relationship Specialty Start Date End Date Shayla Alford D.O. PCP - General Internal Medicine 05/22/[address] [place] [address] documented as of this encounter
--- OUTSIDE RECORDS SUMMARY | 2022-05-28 06:45 | XMS_ITS | Encounter Summary ---
:1945 Author Organization [facility] Address [address] [place] [address] Care Team Providers Name Role Phone Shayla Alford D.O. Primary Care Provider [phone] Reason for Visit Reason Comments Care Coordination Follow up Encounter Details Date Type Department Care Team Description 07/03/2020 Patient Outreach [facility] Medicine A, R.N. (Follow up) in [place], [facility] [address] [place], [place] [address] [phone] [place], [place] [phone] (Work) [phone] Social History Tobacco Use Types Packs/Day Years [...] do you attend evangelical or Never 2021 amish services? Do you [...] have completed or the highest Martin, MEd, BEVELING AND EDGING MACHINE OPERATOR, CAYDEN) degree you have received? [...] never been contacted by that program from [facility] is supposed to be a heart failure [...] lot of exercise. 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 PROBLEM SOLVING -Recognize barriers [...] clinic business hours. After clinichours, call Expert multi craft maintenance technician Line for concerning symptoms. Call . Appointment line: For Family Medicine appointments in [place] call [phone] or Internal Medicine appointments [phone]. To reschedule or cancel an appointment with your RN Booth Cashier, call or leave a message through the switchboard at [phone]. Nurse Booth Cashier: ALLEY Bond. You may call Friday-Friday from 7:30-4:00. Primary Care: Keep regular follow-up appointments with your Primary Care Provider. Call your Care Team during office hours or call the clinic (above numbers). You may also send a message to your Provider or Booth Cashier/ Care Team through your Patient Online Services [...] apple juice ? cup cooked cereal ??? [place] ? cup haresh freddy ? cup sherbet [...] The patient was instructed to contact the career development coordinator with any questions or concerns and statedunderstanding [...] documented as of this encounter Care Teams Vial Gauger Relationship Specialty Start Date End Date Shayla Alford D.O. PCP - General Internal Medicine 05/22/20 [address], [place] [phone] documented as of this encounter
--- OUTSIDE RECORDS SUMMARY | 2022-05-28 06:45 | XMS_ITS | Encounter Summary ---
:1945 Author Organization [facility] Address [address] [place] [address] Care Team Providers Name Role Phone Shayla Alford.OMauro Primary Care Provider [phone] Encounter Details Date Type Department Care Team Description 09/06/2020 Orders Only Department of Internal Coleman Alford iabetes Mellitus Type 2 Medicine in Shayla Dixon, D.O Mauro Without Complication [place] [address] (HCC) (Primary Dx) [address] [place] [phone] Social History Tobacco Use [...] do you attend scientologist or Never 2021 advent services? Do you [...] completed or the highest Martin, MEd, TOOL ROOM GEAR MACHINE OPERATOR, CAYDEN) degree you have received? Sex Assigned at Date Recorded Male 05/21/2018 2:34 PM CDT documented as of this encounter Plan of Treatment Not on filedocumented as of this encounter Results (ABNORMAL) Hemoglobin A1c (10/12/2020 9:15 AM GINGER FARMER) athologist Signature Hemoglobin A1c, 8.4 (H) 4.2 - 5.6 10/12/2020 [place] B % 9:44 AM GINGER FARMER Comment: Hemoglobin A1c values greater than or eq ual to 6.5 percent are diagnostic for diabetes mellitus. ?? Diagnosis should be confirmed by repeat testing. ??In diabet ic patients, HbA1c goals should be discussed with healthcar e provider. Specimen Anatomical Collection Method Collection Time Receive d Time (Source) Location / / Volume Laterality Blood (Blood, 10/12/2020 9:15 AM 10/12/19 9:27 Venous) GINGER FARMER AM GINGER FARMER Shayla Alford D.O. LAB BLOOD ADD-ON Performing Organization Address City/State/ZIP Code Phon e Number [facility]- [address] [place] [address] [place] [address] System in [place] [address] [facility] documented in this encounter Visit Diagnoses Diagnosis Diabetes Mellitus Type 2 Without Complic ation (HCC) - Primary documented in this encounter Additional Health Concerns Assessment Noted Time PHQ-9 Depression Total Score: 18 04/28/2018 11:27 AM C DT documented as of this encounter Care Teams Stripper Printed Circuit Boards Relationship Specialty Start Date End Date Shayla Alford D.O. PCP - General Internal Medicine 05/22/[address] [place] [address] documented as of this encounter
--- OUTSIDE RECORDS SUMMARY | 2022-05-28 06:45 | XMS_ITS | Encounter Summary ---
:1945 Author Organization [facility] Address [address] [place] [address] Care Team Providers Name Role Phone Shayla Alford D.O. Primary Care Provider [phone] Reason for Visit Reason Comments Care Coordination Monthly Billing- 2019 Encounter Details Date Type Department Care Team Description 09/28/2020 Patient Outreach Department of Westley Sommer Counter Dish Carrier rdination Internal Medicine in nShayla D .OMauro (Monthly Billing- Aug. [place], [place] [address] [place] [phone] Social History Tobacco Use Types Packs/Day Years [...] do you attend advent or Never 2021 advent services? Do you [...] have completed or the highest Martin, MEd, LABELS MOLDER, CAYDEN) degree you have received? Sex Assigned [...] documented as of this encounter Care Teams Spice Room Worker Relationship Specialty Start Date End Date Shayla Alford D.O. PCP - General Internal Medicine 05/22/20 [address] [place] [phone] documented as of this encounter
--- OUTSIDE RECORDS SUMMARY | 2022-05-28 06:45 | XMS_ITS | Encounter Summary ---
:1945 Author Organization [facility] Address [address] [place] [address] Care Team Providers Name Role Phone Shayla Alford D.O. Primary Care Provider [phone] Encounter Details Date Type Department Care Team Description 10/12/2020 Hospital Encounter Department of [place] Chroni c Systolic (Congestive) Heart Failure (HCC); Laboratory Medicine n, Gianna Mcguire Anemia In Chronic Kidney Disease; in [place], [address] Elevated Liver Enzyme Abnormal, Aspartate Transaminase, Serum Glutamic-Oxaloacetic Transaminase, Alanine Transaminase [facility] [address] [facility] [place] [phone] Social History Tobacco Use Types Packs/Day Years [...] do you attend gnosticist or Never 2021 holiness services? Do you [...] have completed or the highest Martin, MEd, LUNG PULLER, CAYDEN) degree you have received? Sex [...] by mouth tabletIndications: daily. Atherosclerotic Heart Disease [place] Coronary Artery With Other Forms Angina Pectoris [...] Enz yme Results for this PANEL, S MATERIALS HANDLER Abnormal, Aspartate procedur e are in Transaminase, Serum the resu lts Glutamic-Oxaloacetic section . Transaminase, Alanine Transaminase CBC WITH Routine 10/12/2020 9:15 AM Anemia In Chronic Resu lts for this DIFFERENTIAL, B MATERIALS HANDLER Kidney Disease procedure are in the results section. BASIC METABOLIC Routine 10/12/2020 9:15 AM Chronic Systolic Re sults for this PANEL, S/P MATERIALS HANDLER (Congestive) Heart procedure are in Failure (HCC) the results section. documented in this encounter Results (ABNORMAL) Hepatic Function Panel (10/12/2020 9:15 AM MATERIALS HANDLER) [facility] Method Time Signature Bilirubin, Total, P 0.5 <=1.2 10/12/2020 [place] mg/dL 10:13 AM MATERIALS HANDLER Bilirubin, Direct, P <0.2 0.0 - 0.3 10/12/2020 [place] mg/dL 10:19 AM MATERIALS HANDLER Aspartate 32 8 - 48 10/12/2020 [place] Aminotransferase U/L 10:13 AM MATERIALS HANDLER (AST), P Alanine 46 7 - 55 10/12/2020 [place] Aminotransferase U/L 10:13 AM MATERIALS HANDLER (ALT), P Alkaline 135 (H) 40 - 129 10/12/2020 [place] Phosphatase, P U/L 10:13 AM MATERIALS HANDLER Albumin, P 3.9 3.5 - 5.0 10/12/2020 [place] g/dL 10:13 AM MATERIALS HANDLER Protein, Total, P 6.6 6.3 - 7.9 10/12/2020 [place] g/dL 10:13 AM MATERIALS HANDLER Specimen Anatomical Collection Method Collection Time Receive d Time (Source) Location / / Volume Laterality Blood (Blood, 10/12/2020 9:15 AM 10/12/19 9:27 Venous) MATERIALS HANDLER AM MATERIALS HANDLER Shayla Alford D.O. LAB BLOOD ADD-ON Performing Organization Address City/State/ZIP Code Phon e Number [facility]- [address] [place] [address] [facility] [place] [address] System in [place] [address] (ABNORMAL) CBC with Differential, Blood (10/12/2020 9:15 AM MATERIALS HANDLER) [facility] gist Method Time Signature Hemoglobin 10.0 (L) 13.2 - 10/12/2020 [place] 16.6 g/dL 9:31 AM MATERIALS HANDLER Hematocrit 30.9 (L) 38.3 - 10/12/2020 [place] 48.6 % 9:31 AM MATERIALS HANDLER Erythrocytes 3.29 (L) 4.35 - 10/12/2020 [place] 5.65 9:31 AM MATERIALS HANDLER x10(12)/L MCV 93.9 78.2 - 10/12/2020 [place] 97.9 fL 9:31 AM MATERIALS HANDLER RBC Distrib Width 12.6 11.8 - 10/12/2020 [place] 14.5 % 9:31 AM MATERIALS HANDLER Platelet Count 176 135 - 317 10/12/2020 [place] x10(9)/L 9:31 AM MATERIALS HANDLER Leukocytes 6.1 3.4 - 9.6 10/12/2020 [place] x10(9)/L 9:31 AM MATERIALS HANDLER Neutrophils 4.36 1.56 - 10/12/2020 [place] 6.45 9:31 AM MATERIALS HANDLER x10(9)/L Lymphocytes 0.93 (L) 0.95 - 10/12/2020 [place] 3.07 9:31 AM MATERIALS HANDLER x10(9)/L Monocytes 0.42 0.26 - 10/12/2020 [place] 0.81 9:31 AM MATERIALS HANDLER x10(9)/L Eosinophils 0.28 0.03 - 10/12/2020 [place] 0.48 9:31 AM MATERIALS HANDLER x10(9)/L Basophils 0.06 0.01 - 10/12/2020 [place] 0.08 9:31 AM MATERIALS HANDLER x10(9)/L Specimen Anatomical Collection Method Collection Time Receive d Time (Source) Location / / Volume Laterality Blood (Blood, 10/12/2020 9:15 AM 10/12/19 9:27 Venous) MATERIALS HANDLER AM MATERIALS HANDLER Shayla Alford D.O. LAB BLOOD ADD-ON Performing Organization Address City/State/ZIP Code Phon e Number [facility]- [address] [place] [address] [place] [address] System in [place] [address] (ABNORMAL) Basic Metabolic Panel (10/12/2020 9:15 AM MATERIALS HANDLER) Analysis Performed At Patho logist Time Signature Potassium, P 4.4 3.6 - 5.2 10/12/2020 [place] mmol/L 10:13 AM MATERIALS HANDLER Sodium, P 137 135 - 145 10/12/2020 [place] mmol/L 10:13 AM MATERIALS HANDLER Chloride, P 103 98 - 107 10/12/2020 [place] mmol/L 10:13 AM MATERIALS HANDLER Bicarbonate, P 26 22 - 29 10/12/2020 [place] mmol/L 10:13 AM MATERIALS HANDLER Anion Gap, P 8 7 - 15 10/12/2020 [place] 10:13 AM MATERIALS HANDLER BUN (Blood Urea 41 (H) 8 - 24 10/12/2020 [place] Nitrogen), P mg/dL 10:13 AM MATERIALS HANDLER Creatinine 1.70 (H) 0.74 - 10/12/2020 [place] 1.35 mg/dL 10:13 AM MATERIALS HANDLER eGFR-Black/Afri 44 (L) >=60 10/12/2020 [place] can [place]alese mL/min/BSA 10:13 AM MATERIALS HANDLER Comment: ----ADDITIONAL INFORMATION---- Estimated GFR calculated using the 2009 CKD_EPI creatinine equation. eGFR Non-Black/ 38 (L) >=60 mL/min/BSA 10/12/2020 10:13 AM MATERIALS HANDLER [place] Comment: ----ADDITIONAL INFORMATION---- Estimated GFR calculated using the 2009 CKD_EPI creatinine equation. Calcium, Total, P 8.8 8.8 - 10.2 mg/dL 10/12/2020 10:1 3 AM MATERIALS HANDLER [place] Glucose, P 305 (H) 70 - 140 mg/dL 10/12/2020 10:13 AM MATERIALS HANDLER [place] Specimen Anatomical Collection Method Collection Time Receive d Time (Source) Location / / Volume Laterality Blood (Blood, 10/12/2020 9:15 AM 10/12/19 9:27 Venous) MATERIALS HANDLER AM MATERIALS HANDLER Shayla Alford D.O. LAB BLOOD ADD-ON Performing Organization Address City/State/ZIP Code Phon e Number [facility]- [address] [place] [address] [place] [address] System in [place] [address] [facility] documented in this encounter Visit Diagnoses Diagnosis Chronic Systolic (Congestive) Heart Fail ure (HCC) Anemia In Chronic Kidney Disease Elevated Liver Enzyme Abnormal, Aspartat e Transaminase, Serum Glutamic-Oxaloacetic Transaminase, Alanine Transaminase documented in this encounter Additional Health Concerns Assessment Noted Time PHQ-9 Depression Total Score: 18 04/28/2018 11:27 AM C DT documented as of this encounter Care Teams Steam Trap Worker Relationship Specialty Start Date End Date Shayla Alford D.O. PCP - General Internal Medicine 05/22/202199 [place] [phone] documented as of this encounter
--- OUTSIDE RECORDS SUMMARY | 2022-05-28 06:45 | XMS_ITS | Encounter Summary ---
:1945 Author Organization [facility] Address [address] [place] [address] Care Team Providers Name Role Phone Shayla Alford D.O. Primary Care Provider [phone] Reason for Visit Reason Comments Care Coordination Patient call in Encounter Details Date Type Department Care Team Description 08/28/2020 Patient Outreach [facility] [place] Internal Medicine A, R.N. (Patient call in ) in [place], [facility] [address] [place], [place] [address] [address] [place], [place] [phone] [address] (Work) [phone] Social History Tobacco Use Types Packs/Day Years [...] do you attend muslim or Never 2021 congregational services? Do you [...] have completed or the highest Martin, MEd, ACTUARIAL SCIENCE PROFESSOR, CA[place]) degree you have received? Sex [...] will have his present to assist him. R LEATHER CUTTER documented in this encounter Plan of Treatment Not on filedocumented as of this encounter Visit Diagnoses Not on filedocumented in this encounter Additional Health Concerns Assessment Noted Time PHQ-9 Depression Total Score: 18 04/28/2018 11:27 AM C DT documented as of this encounter Care Teams Landing Scaler Relationship Specialty Start Date End Date Shayla Alford D.O. PCP - General Internal Medicine 05/22/20 [address] [place] [address] documented as of this encounter
--- OUTSIDE RECORDS SUMMARY | 2022-05-28 06:45 | XMS_ITS | Encounter Summary ---
:1945 Author Organization [facility] Address [address] [place] [address] Care Team Providers Name Role Phone Shayla Alford D.O. Primary Care Provider [phone] Reason for Visit Reason Comments Care Coordination Follow Up Encounter Details Date Type Department Care Team Description 07/25/2020 Patient Outreach [facility] Internal Medicine A, R.N. (Follow Up) in [place], [facility] [address] [place], [place] [address] [address] [place], [place] [phone] [address] (Work) [phone] Social History Tobacco Use Types Packs/Day Years [...] do you attend episcopal or Never 2021 restorationism services? Do you [...] have completed or the highest Martin, MEd, CORDWOOD CUTTER HELPER, CAYDEN) degree you have received? Sex [...] is currently at his [facility] in [place]. He says he is feeling really well [...] provider prior to starting new medications, including jzkc-vou-ukzizlp and herbal supplements. PROBLEM SOLVING -Recognize barriers [...] clinic business hours. After clinichours, call Expert commercial construction project manager Line for concerning symptoms. Call . Appointment line: For Family Medicine appointments in [place] call [phone] or Internal Medicine appointments [phone]. To reschedule or cancel an appointment with your RN Rfid Systems Engineer, call or leave a message through the switchboard at [phone]. Nurse Rfid Systems Engineer: ALLEY Bond. You may call Friday-Friday from 7:30-4:00. Primary Care: Keep regular follow-up appointments with your Primary Care Provider. Call your Care Team during office hours or call the clinic (above numbers). You may also send a message to your Provider or Rfid Systems Engineer/ Care Team through your Patient Online Services [...] apple juice ? cup cooked cereal ??? [place] ? cup haresh freddy ? cup sherbet [...] The patient was instructed to contact the respiratory care practitioner with any questions or concerns and statedunderstanding [...] documented as of this encounter Care Teams Park Manager Relationship Specialty Start Date End Date Shayla Alford D.O. PCP - General Internal Medicine 05/22/20 [address] [place] [phone] documented as of this encounter
--- OUTSIDE RECORDS SUMMARY | 2022-05-28 06:45 | XMS_ITS | Encounter Summary ---
:1945 Author Organization [facility] Address [address] [place] [address] Care Team Providers Name Role Phone Shayla Alford D.O. Primary Care Provider [phone] Reason for Visit Reason Comments Care Coordination Call in Encounter Details Date Type Department Care Team Description 07/10/2020 [facility] Internal Medicine A, R.N. (Call in) in [place], [facility] [address] [place], [place] [address] [address] [place], [place] [phone] (Work) [phone] Social History Tobacco Use Types Packs/Day Years [...] do you attend caodaism or Never 2021 spiritism services? Do you [...] have completed or the highest Martin, MEd, KNOT PICKER CLOTH, CA[place]) degree you have received? Sex [...] of this encounter Care Teams High School Music Instructor Relationship Specialty Start Date End Date Shayla Alford D.O. PCP - General Internal Medicine 05/22/20 [address], [place] [address] documented as of this encounter
--- OUTSIDE RECORDS SUMMARY | 2022-05-28 06:45 | XMS_ITS | Encounter Summary ---
:1945 Author Organization [facility] Address [address] [place] [address] Care Team Providers Name Role Phone Shayla Alford D.O. Primary Care Provider [phone] Encounter Details Date Type Department Care Team Description 2020 Orders Only Department of Internal Selvin Alford [facility] Risk Medication Medicine in Shayla Dixon, DKyle Wade (Primary Dx) [place] [address] [place] [phone] Social History Tobacco Use Types Packs/Day Years [...] do you attend jain or Never 2021 confucianist services? Do you [...] completed or the highest Martin, MEd, PROCESS DEVELOPMENT TECHNICIAN, CAYDEN) degree you have received? Sex Assigned at Date Recorded Male 05/21/2018 2:34 PM CDT documented as of this encounter Plan of Treatment Not on filedocumented as of this encounter Results (ABNORMAL) Hepatic Function Panel (03/21/2021 9:29 AM CDT) [facility] gist Method Time Signature Bilirubin, Total, P [...] Organization Address City/State/ZIP Code Phon e Number [facility]- [address] [place] [address] [facility] [place] [address] System in [place] [address] documented in this encounter Visit Diagnoses Diagnosis High Risk Medication - Primary documented in this encounter Additional Health Concerns Assessment Noted Time PHQ-9 Depression Total Score: 18 04/28/2018 11:27 AM C DT documented as of this encounter Care Teams Assistant Corporation Counsel Relationship Specialty Start Date End Date Shayla Alford D.O. PCP - General Internal Medicine 05/[address] [place] [address] documented as of this encounter
--- OUTSIDE RECORDS SUMMARY | 2022-05-28 06:45 | XMS_ITS | Encounter Summary ---
:1945 Author Organization [facility] Address [address] [place] [address] Care Team Providers Name Role Phone Shayla Alford D.O. Primary Care Provider [phone] Encounter Details Date Type Department Care Team Description 09/06/2020 Clinical Communication Department of Internal Andrei Dejesus Medicine in [place], [place], D.O Mauro [place] [address] [place] [phone] Social History Tobacco Use Types Packs/Day Years [...] please advise Name of Medication (if relevant): Y ASSEMBLER documented in this encounter Plan of Treatment Not on filedocumented as of this encounter Visit Diagnoses Not on filedocumented in this encounter Additional Health Concerns Assessment Noted Time PHQ-9 Depression Total Score: 18 04/28/2018 11:27 AM C DT documented as of this encounter Care Teams Street Car Inspector Relationship Specialty Start Date End Date Shayla Alford D.O. PCP - General Internal Medicine 05/22/[address] [phone] documented as of this encounter
--- OUTSIDE RECORDS SUMMARY | 2022-05-28 06:45 | XMS_ITS | Encounter Summary ---
:1945 Author Organization [facility] Address [address] [place] [address] Care Team Providers Name Role Phone Shayla Alford D.O. Primary Care Provider [phone] Reason for Visit Reason Comments Care Coordination Follow Up Encounter Details Date Type Department Care Team Description 07/17/2020 Patient Outreach Department of Sruthi Decker [facility] Internal Medicine in M, R.N. (Follow Up) [place], [place] [address] [place] [phone] Social History Tobacco Use Types Packs/Day [...] do you attend adventism or Never 2021 methodist services? Do you [...] completed or the highest Martin, MEd, WELT BEATER, CAYDEN) degree you have received? Sex Assigned [...] provider prior to starting new medications, including jlwa-ozp-bsjdswy and herbal supplements. PROBLEM SOLVING -Recognize barriers [...] clinic business hours. After clinichours, call Expert track manager Line for concerning symptoms. Call . Appointment line: For Family Medicine appointments in [place] call [phone] or Internal Medicine appointments [phone]. To reschedule or cancel an appointment with your RN Stock Handler, call or leave a message through the switchboard at [phone]. Nurse Stock Handler: ALLEY Bond. You may call Friday-Friday from 7:30-4:00. Primary Care: Keep regular follow-up appointments with your Primary Care Provider. Call your Care Team during office hours or call the clinic (above numbers). You may also send a message to your Provider or Stock Handler/ Care Team through your Patient Online Services [...] apple juice ? cup cooked cereal ??? [place] ? cup haresh freddy ? cup sherbet [...] documented as of this encounter Care Teams Open Hearth Furnace Laborer Relationship Specialty Start Date End Date Shayla Alford D.O. PCP - General Internal Medicine 05/22/20 [address] [place] [phone] documented as of this encounter
--- OUTSIDE RECORDS SUMMARY | 2022-05-28 06:45 | XMS_ITS | Encounter Summary ---
:1945 Author Organization [facility] Address [address] [place] [address] Care Team Providers Name Role Phone Shayla Alford D.O. Primary Care Provider [phone] Encounter Details Date Type Department Care Team Description 07/10/2020 Clinical Communication Department of Internal Andrei Dejesus Medicine in [place], [place], D.O Mauro [place] [address] [place] [phone] Social History Tobacco Use Types Packs/Day Years [...] do you attend anabaptism or Never 2021 christian services? Do you [...] completed or the highest Martin, MEd, FINANCIAL COORDINATOR, [place]) degree you have received? Sex [...] as of this encounter Care Teams Gas Pipe Layer Relationship Specialty Start Date End Date Shayla Alford D.O. PCP - General Internal Medicine 05/22/[address] [phone] documented as of this encounter
--- OUTSIDE RECORDS SUMMARY | 2022-05-28 06:45 | XMS_ITS | Encounter Summary ---
:1945 Author Organization [facility] Address [address] [place] [address] Care Team Providers Name Role Phone Shayla Alford D.O. Primary Care Provider [phone] Reason for Visit Reason Comments Care Coordination Monthly billing - 2019 Encounter Details Date Type Department Care Team Description 06/28/2020 [facility] Outreach [facility] Internal Medicine A, R.N. (Monthly billing - in [place], 200 [facility] 2019) [place], [place] [address] [address] [place], [place] [phone] (Work) [phone] Social History Tobacco Use Types Packs/Day Years [...] do you attend baptist or Never 2021 yazdanism services? Do you [...] completed or the highest Martin, MEd, EXECUTIVE PRODUCER, CAYDEN) degree you have received? Sex [...] as of this encounter Care Teams Sorting And Folding Supervisor Relationship Specialty Start Date End Date Shayla Alford D.O. PCP - General Internal Medicine 05/22/[address] [phone] documented as of this encounter
--- OUTSIDE RECORDS SUMMARY | 2022-05-28 06:45 | XMS_ITS | Encounter Summary ---
:1945 Author Organization [facility] Address [address] [place] [address] Care Team Providers Name Role Phone Shayla Alford D.O. Primary Care Provider [phone] Encounter Details Date Type Department Care Team Description 08/18/2020 Clinical Communication Department of Ronda Fernandez Internal Medicine in , [place], [place] [address] [facility] [address] [place] [phone] Social History Tobacco Use Types Packs/Day Years [...] do you attend orthodoxy or Never 2021 worship services? Do you [...] have completed or the highest Martin, MEd, REGULATION SUPERVISOR, CAY[place]) degree you have received? Sex Assigned at Date Recorded Male 05/21/2018 2:34 PM CDT documented as of this encounter Miscellaneous Notes Telephone Encounter - Ronda Fernandez RMauroN. - 08/18/2020 8:33 AM LANDSCAPE ARCHITECT AND PLANNER Please schedule a nurse appointment with this patient as outlined below. Die Lay Out Worker (calendar name): MIGUEL ANGEL MCINTOSH CARE COORD NURSE Date: 09/01/20 Time: 9:30 a.m. Location: Patient's home/Virtual visit Appointment type: Virtual: Video Anyplace Extended- 60 minutes Director Food Safety needed: No Please enter into notes section: Please add my name Ronda Villagomez, as the person will be completing the virtual visit. SCAPE ARCHITECT AND PLANNER documented in this encounter Plan of Treatment Not on filedocumented as of this encounter Visit Diagnoses Not on filedocumented in this encounter Additional Health Concerns Assessment Noted Time PHQ-9 Depression Total Score: 18 04/28/2018 11:27 AM C DT documented as of this encounter Care Teams Assembling Machine Operator Relationship Specialty Start Date End Date Shayla Alford D.O. PCP - General Internal Medicine 05/22/[address] [phone] documented as of this encounter
--- OUTSIDE RECORDS SUMMARY | 2022-05-28 06:45 | XMS_ITS | Encounter Summary ---
:1945 Author Organization [facility] Address [address] [place] [address] Care Team Providers Name Role Phone Shayla Alford D.O. Primary Care Provider [phone] Reason for Referral Physical Therapy (Routine) - Closed Specialty Diagnoses / Procedures Referred By Contact Refer red To Contact Diagnoses Unsteadiness Gait Disorder Non Orthopedic Yen Buchanan M.D., M.B.A. [address] [place] [address] Referral ID Status Reason Start Date Expiration Date Visits V isits Requested Authorized [id number] Closed Service not 09/13/2020 09/13/2021 1 1 available at any [facility] site ASSOCIATE Reason for Visit Reason Comments Palpitations states [...] Expiration Date Visits Requ ested Visits Authorized [id number] Closed 09/13/2020 09/13/2021 1 1 Encounter Details Date Type Department Care Team Description 09/13/2020 Office Visit Department of Internal Kalpesh Buchanan re Heart (HCC) (Primary Dx); Medicine in Yen Patel M.D., Uns teadiness Gait Disorder Non Orthopedic; [facility].B.AMauro Beat Premature Ventricular [address] [place] [phone] Social History Tobacco Use Types Packs/Day Years [...] do you attend worship or Never 2021 denominational services? Do you [...] completed or the highest Martin, MEd, COMMUNITY PHARMACIST, CAYDEN) degree you have received? Sex Assigned at Date Recorded Male 05/21/2018 2:34 PM CDT documented as of this encounter Last Filed Vital Signs Vital Sign Reading Time Taken Comments Blood Pressure 136/66 09/13/2020 10:44 AM SPA ASSOCIATE Pulse 51 09/13/2020 10:44 AM SPA ASSOCIATE Temperature 36.8 ??C (98.2 ??F) 09/13/2020 10:44 AM SPA ASSOCIATE Respiratory Rate 16 09/13/2020 10:44 AM SPA ASSOCIATE Oxygen Saturation - - Inhaled Oxygen Concentration - - Weight 97.7 kg (215 lb 6.2 oz) 09/13/2020 10:44 AM SPA ASSOCIATE Height 189 cm (6' 2.41) 09/13/2020 10:44 AM SPA ASSOCIATE Body Mass Index 27.35 09/13/2020 10:44 AM SPA ASSOCIATE documented in this encounter Progress Notes Yen Buchanan M.D., M.B.A. - 09/13/2020 11:00 AM [facility] INTERNAL MEDICINE Progress note DATE OF EXAM 09/13/2020 LOCATION OF EXAM [facility] CHIEF COMPLAINT/REASON FOR VISIT Chief Complaint Patient [...] Master's degree (e.g., MA, MS, Martin, MEd, COMMUNITY PHARMACIST, CAYDEN) Occupational History Employer: RETIRED Social Needs [...] face symmetrical, pupils reactive to light, negative Custer-Hallpike, no nystagmus NECK: supple, no tracheal shift [...] his concerns. Orders: - External referral PT (non-[place]) - Vestibular balance evaluation; Future; Expected [...] spent on counselling. Yen Buchanan M.D., M.B.A. ASSOCIATE documented in this encounter Miscellaneous Notes Assessment [...] that he will follow with Dr Reid. ASSOCIATE documented in this encounter Plan of Treatment Not on filedocumented as of this encounter Results Magnesium (10/19/2020 9:00 AM SPA ASSOCIATE) P athologist Signature Magnesium, P 1.8 1.7 - 2.3 10/19/2020 [place] mg/dL 10:08 AM SPA ASSOCIATE Specimen Anatomical Collection Method Collection Time Receive d Time (Source) Location / / Volume Laterality Blood (Blood, 10/19/2020 9:00 AM 10/19/19 9:03 Venous) SPA ASSOCIATE AM SPA ASSOCIATE Yen Buchanan M.D., M.B.A. LAB BLOOD ADD-ON Performing Organization Address City/State/ZIP Code Phon e Number [facility]- [address] [place] [address] [facility] [place] [address] System in [place] [address] documented in this encounter Visit Diagnoses Diagnosis Failure Heart (HCC) - Primary Unsteadiness Gait Disorder Non Orthopedi c Beat Premature Ventricular documented in this encounter Additional Health Concerns Assessment Noted Time PHQ-9 Depression Total Score: 18 04/28/2018 11:27 AM C DT documented as of this encounter Care Teams Indoor Landscape Architect Relationship Specialty Start Date End Date Shayla Alford D.O. PCP - General Internal Medicine [address] [place] [address] documented as of this encounter
--- OUTSIDE RECORDS SUMMARY | 2022-05-28 06:45 | XMS_ITS | Encounter Summary ---
:1945 Author Organization [facility] Address [address] [place] [address] Care Team Providers Name Role Phone Shayla Alford.Sabrina Primary Care Provider [phone] Reason for Visit Reason Comments COVID Inquiry Encounter Details Date Type Department Care Team Description 09/13/2020 Clinical Communication Department of Internal Andrei Dejesus COVID Inquiry Medicine in [facility] Shayla, D .OMauro [place] [address] [place] [phone] Social History Tobacco Use [...] do you attend mormonism or Never 2021 mandaeism services? Do you [...] have completed or the highest Martin, MEd, MINERAL ECONOMIST, CAYDEN) degree you have received? Sex [...] sending patient for testing in [facility] or [facility], route encounter to the correct testing pool. SPRING STRIP GAUGER documented in this encounter Plan of Treatment Not on filedocumented as of this encounter Visit Diagnoses Not on filedocumented in this encounter Additional Health Concerns Assessment Noted Time PHQ-9 Depression Total Score: 18 04/28/2018 11:27 AM C DT documented as of this encounter Care Teams Continuous Improvement Black Belt Relationship Specialty Start Date End Date Shayla Alford D.O. PCP - General Internal Medicine 05/22/[address] [phone] documented as of this encounter
--- OUTSIDE RECORDS SUMMARY | 2022-05-28 06:45 | XMS_ITS | Encounter Summary ---
:1945 Author Organization [facility] Address [address] [place] [address] Care Team Providers Name Role Phone Shayla Alford D.O. Primary Care Provider [phone] Reason for Referral Outpatient (Routine) - Closed Specialty Diagnoses / Procedures Referred By Contact Refer red To Contact Community Internal Diagnoses Failure Heart (HCC) Hypertension Essential Primary ARMAAN Alford [facility] Tulio Mcguire [address] [place] [phone] Referral ID Status Reason Start Date Expiration Date Visits Requ ested Visits Authorized [id number] Closed 10/12/2020 10/12/2021 1 1 Scheduling Instructions Vitals recheck BP and weight , please in form me if BP >150 systolic and if gained more than 5 pounds since visit BOX REPAIRER Outpatient (Routine) - Closed Specialty Diagnoses / Procedures Referred By Contact Refer red To Contact [facility] Internal ARMAAN Alford [facility] Tulio Mcguire [address] [place] [phone] Referral ID Status Reason Start Date Expiration Date Visits Requ ested Visits Authorized [id number] Closed 10/12/2020 10/12/2021 1 1 Scheduling Instructions Schedule one hour BOX REPAIRER Reason for Visit Reason Comments Diabetes Mellitus Appointment Request (Routine) - Closed Specialty Diagnoses / Procedures Referred By Contact Refer red To Contact Community Internal Medicine Referral ID Status Reason Start Date Expiration Date Visits Requ ested Visits Authorized [id number] Closed 09/06/2020 09/06/2021 1 1 Encounter Details Date Type Department Care Team Description 10/12/2020 Office Visit Department of Rocío Diabetes Me llitus Type 2 Hyperglycemia (HCC) (Primary Dx); Internal Medicine Shayla larry D. O. 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 Do you [...] have completed or the highest Martin, MEd, HOUSEKEEPING ASSOCIATE, CAYDEN) degree you have received? Sex Assigned at Date Recorded Male 05/21/2018 2:34 PM CDT documented as of this encounter Last Filed Vital Signs Vital Sign Reading Time Taken Comments Blood Pressure 153/60 10/12/2020 11:59 AM FAREBOX REPAIRER Pulse 50 10/12/2020 11:43 AM FAREBOX REPAIRER Temperature 36.2 ??C (97.1 ??F) 10/12/2020 11:43 AM FAREBOX REPAIRER Respiratory Rate - - Oxygen Saturation - - Inhaled Oxygen Concentration - - Weight 99.2 kg (218 lb 11.1 oz) 10/12/2020 11:43 AM FAREBOX REPAIRER Height - - Body Mass Index 27.77 09/13/2020 10:44 AM FAREBOX REPAIRER documented in this encounter Progress Notes Shayla [...] Failure Heart (HCC) #3 Atherosclerotic Heart Disease [place] 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 10/20/20 1:01 PM FAREBOX REPAIRER Time spent 45 minutes This document serves as a record of services personally performed by Shayla Alford D.O.. Itwas created on their behalf by Sarai Cason, a trained medical geneticist. The creation of this recordis based on the scribe remotely listening to the visit and the provider's statements to them. This do cument has been checked and approved by the attending provider. BOX REPAIRER documented in this encounter Plan of Treatment Scheduled Referrals Name Type Priority Associated Diagnoses Order S [facility] Internal Outpatient Referral Routine Ex pected: Medicine office 01/10/2021 visit (clinic) (Approximate) , Expires: 10/12/2023 [facility] Internal Outpatient Referral Routine Failure H eart (HCC) Expected: Medicine office Hypertension 10/19/2020 visit (clinic) Essential Primary (Approxi mate), Expires: 10/12/2023 documented as of this encounter Visit Diagnoses Diagnosis Diabetes Mellitus Type 2 Hyperglycemia ( HCC) - Primary Hyperlipidemia Pancreatitis Chronic Recurrent (HCC) Failure Heart (HCC) 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 PCP - General Internal Medicine 05/22/[address] [address] documented as of this encounter
--- OUTSIDE RECORDS SUMMARY | 2022-05-28 06:45 | XMS_ITS | Encounter Summary ---
:1945 Author Organization [facility] Address [address] [place] [address] Care Team Providers Name Role Phone Shayla Alford D.O. Primary Care Provider [phone] Reason for Visit Reason Comments DMV DM Report Encounter Details Date Type Department Care Team Description 2020 Clinical Communication Department of Internal Andrei RIVERA DM Report Medicine in [place], Shayla, D .OMauro [place] [address] [place] [address] Social History Tobacco Use [...] 10/09/2021 organizations such as buddhist groups, unions, fraEat or athletic groups, or school groups? How [...] have completed or the highest Martin, MEd, TELECOMMUNICATION ENGINEER, CAYDEN) degree you have received? Sex Assigned at Date Recorded Male 05/21/2018 2:34 PM CDT documented as of this encounter Plan of Treatment Not on filedocumented as of this encounter Visit Diagnoses Not on filedocumented in this encounter Additional Health Concerns Assessment Noted Time PHQ-9 Depression Total Score: 18 04/28/2018 11:27 AM C DT documented as of this encounter Care Teams Tow Bar Driver Relationship Specialty Start Date End Date Shayla Alford D.O. PCP - General Internal Medicine 05/22/[address] [address] documented as of this encounter
--- OUTSIDE RECORDS SUMMARY | 2022-05-28 06:45 | XMS_ITS | Encounter Summary ---
:1945 Author Organization [facility] Address [address] [place] [address] Care Team Providers Name Role Phone Shayla Alford D.O. Primary Care Provider [phone] Reason for Visit Reason Comments Care Coordination Graduation Encounter Details Date Type Department Care Team Description 09/01/2020 Patient Outreach Department of Ronda Fernandez Internal Medicine A, R.N. (Graduation) in [place] [address] [place], [place] [address] [address] [place], [place] [phone] [address] (Work) [phone] Social History Tobacco Use Types Packs/Day Years [...] do you attend religion or Never 2021 jewish services? Do you [...] have completed or the highest Matrin, MEd, WAREHOUSE PACKER, CAYDEN) degree you have received? Sex [...] Patient now has a nurse (Zoya) form [facility] that is calling him to help [...] yes The following references were used: none Y MIX TRUCK DRIVER documented in this encounter Plan of Treatment Not on filedocumented as of this encounter Visit Diagnoses Not on filedocumented in this encounter Additional Health Concerns Assessment Noted Time PHQ-9 Depression Total Score: 18 04/28/2018 11:27 AM C DT documented as of this encounter Care Teams Salon Receptionist Relationship Specialty Start Date End Date Shayla Alford D.O. PCP - General Internal Medicine 05/22/20 [address] [place] [address] documented as of this encounter
--- OUTSIDE RECORDS SUMMARY | 2022-05-28 06:45 | XMS_ITS | Encounter Summary ---
:1945 Author Organization [facility] Address [address] [place] [address] Care Team Providers Name Role Phone Shayla Alford D.O. Primary Care Provider [phone] Reason for Visit Reason Comments Care Coordination Follow Up Encounter Details Date Type Department Care Team Description 08/08/2020 [facility] A, R.N. (Follow Up) in [place], [facility] [address] [place], [place] [address] [address] [place], [place] [phone] [address] (Work) [phone] Social History Tobacco Use Types Packs/Day Years [...] do you attend denominational or Never 2021 lutheran services? Do you [...] have completed or the highest Martin, MEd, PSYCHIATRIC SPECIALIST, CAYDEN) degree you have received? Sex [...] provider prior to starting new medications, including [id number] and herbal supplements. PROBLEM SOLVING -Recognize barriers [...] clinic business hours. After clinichours, call Expert produce assistant Line for concerning symptoms. Call . Appointment line: For Family Medicine appointments in [place] call [phone] or Internal Medicine appointments [phone]. To reschedule or cancel an appointment with your RN Plastic Process Technician, call or leave a message through the switchboard at [phone]. Nurse Plastic Process Technician: ALLEY Bond. You may call Friday-Friday from 7:30-4:00. Primary Care: Keep regular follow-up appointments with your Primary Care Provider. Call your Care Team during office hours or call the clinic (above numbers). You may also send a message to your Provider or Plastic Process Technician/ Care Team through your Patient Online [...] apple juice ? cup cooked cereal ??? Cullen ? cup haresh freddy ? cup sherbet [...] The patient was instructed to contact the long term care social worker with any questions or concerns and statedunderstanding of the information provided. Disposition/Recommendation: recommended continue engagement in self-management activities Education: patient/caller able to teach back Caller agreeable to plan of care: yes The following references were used: none RATORY CUREMAN documented in this encounter Plan of Treatment Not on filedocumented as of this encounter Visit Diagnoses Not on filedocumented in this encounter Additional Health Concerns Assessment Noted Time PHQ-9 Depression Total Score: 18 04/28/2018 11:27 AM C DT documented as of this encounter Care Teams Making Machine Catcher Relationship Specialty Start Date End Date Shayla Alford D.O. PCP - General Internal Medicine 05/22/[address] [address] documented as of this encounter
--- OUTSIDE RECORDS SUMMARY | 2022-05-28 06:45 | XMS_ITS | Encounter Summary ---
:1945 Author Organization [facility] Address [address] [place] [address] Care Team Providers Name Role Phone Shayla Alford D.O. Primary Care Provider [phone] Reason for Referral Outpatient (Routine) - Modified Order Specialty Diagnoses / Procedures Referred By Contact Refer red To Contact Community Internal ARMAAN Alford [facility] Medicine Tulio Mcguire [address] [place] [address] Referral ID Status Reason Start Date Expiration Date Visits V isits Requested Authorized [id number] Modified 06/30/2020 06/30/2021 1 1 Order Scheduling [...] Expiration Date Visits Requ ested Visits Authorized [id number] Closed 05/22/2020 05/22/2021 1 1 Encounter Details Date Type Department Care Team Description 06/30/2020 Office Visit Department of Internal Rocío Di abetes 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 Do you [...] have completed or the highest Martin, MEd, MODERN LANGUAGES PROFESSOR, CAYDEN) degree you have received? Sex [...] condition. He is currently on insulin. We [id number] check a hemoglobin A1c. The following portions [...] condition. He is currently on insulin. We [id number] check a hemoglobin A1c. - Hemoglobin A1c; [...] Future; Expected date: 06/30/2020 - Thyroid Function [place]; Future; Expected date: 06/30/2020 #6 Screening Cancer Colon Patient is due for his colon cancer screening, we will be seen the patient in 1 month for preop. Other orders - [facility] Internal Medicine office visit (clinic); Future; Expected date: 07/31/2020 Time spent today 42 minutes more than 50% counseling Electronically signed by: Shayla Alford D.O. 06/30/20 12:31 PM CDT documented in this encounter Plan of Treatment Scheduled Referrals Name Type Priority Associated Diagnoses Order S [facility] Internal Outpatient Referral Routine Ex pected: Medicine office 07/31/2020 visit (clinic) (Approximate) , Expires: 06/30/2023 documented as of this encounter Results (ABNORMAL) Thyroid Function [place] (07/01/2020 10:01 AM CDT) P athologist Signature [...] D.O. LAB BLOOD ADD-ON Performing Organization Address City/[facility]/ZIP Code Phon e Number [facility]- [address] [facility] [place] [address] [place] [address] System in [place] [address] (ABNORMAL) ALT (Alanine Aminotransferase) (07/01/2020 10:01 AM CDT) [facility] Method Time Signature Alanine 65 (H) 7 - 55 07/01/2020 [place] Aminotransferase U/L 11:26 AM CDT (ALT), P Specimen Anatomical Collection Method Collection Time Receive d Time (Source) Location / / Volume Laterality Blood (Blood, 07/01/2020 10:01 07/01/2020 Venous) AM CDT 10:07 AM CDT Shayla Alford D.O. LAB BLOOD ADD-ON Performing Organization Address City/State/ZIP Code Phon e Number [facility]- [address] [place] [place] [address] [facility] [place] [address] System in [place] [address] AST (Aspartate Aminotransferase) (07/01/2020 10:01 AM CDT) [facility] gist Method Time Signature Aspartate 38 8 - 48 07/01/2020 [place] Aminotransferase U/L 11:26 AM CDT (AST), P Specimen Anatomical Collection Method Collection Time Receive d Time (Source) Location / / Volume Laterality Blood (Blood, 07/01/2020 10:01 07/01/2020 Venous) AM CDT 10:07 AM CDT Shayla Alford D.O. LAB BLOOD ADD-ON Performing Organization Address City/State/ZIP Code Phon e Number [facility]- [address] [place] [address] [facility] [place] [address] System in [place] [address] (ABNORMAL) Hemoglobin A1c [...] Phon e Number [facility]- [address] [place] [address] [facility] [place] [facility] [place] [address] System in [place] [address] documented in this [...] documented as of this encounter Care Teams Activities Attendant Relationship Specialty Start Date End Date Shayla Alford D.O. PCP - General Internal Medicine 05/[address] [place] [address] documented as of this encounter
--- OUTSIDE RECORDS SUMMARY | 2022-05-28 06:45 | XMS_ITS | Encounter Summary ---
:1945 Author Organization [facility] Address [address] [place] [address] Care Team Providers Name Role Phone Shayla Alford D.O. Primary Care Provider [phone] Reason for Visit Reason Comments Care Coordination Monthly billing- Jun 2020 Encounter Details Date Type Department Care Team Description 07/29/2020 Patient Outreach Department of Westley Sommer Kennel Manager rdination Internal Medicine in nShayla D .OMauro (Monthly billing- Jun [place], [place] [address] [place] [phone] Social History Tobacco Use Types Packs/Day [...] do you attend taoist or Never 2021 buddhist services? Do you [...] have completed or the highest Martin, MEd, BEER COOLER, CAYDEN) degree you have received? Sex [...] COVID19 Pending 08/21/2020 08/21/2020 08/22/2020 6:39 AM ELECTRONICS ENGINEERING TECHNOLOGIST Assessment Noted Time PHQ-9 Depression Total Score: 18 04/28/2018 11:27 AM C DT documented as of this encounter Care Teams Field Supervisor Relationship Specialty Start Date End Date Shayla Alford D.O. PCP - General Internal Medicine 05/22/[address], [place] [address] documented as of this encounter
--- OUTSIDE RECORDS SUMMARY | 2022-05-28 06:45 | XMS_ITS | Encounter Summary ---
:1945 Author Organization [facility] Address [address] [place] [address] Care Team Providers Name Role Phone Shayla Alford D.O. Primary Care Provider Reason for Visit Reason Comments Diabetes Mellitus Medication Visit [facility] Pre-op Exam Outpatient (Routine) - Modified Order Specialty Diagnoses / Procedures Referred By Contact Refer red To Contact Community Internal ARMAAN Alford [facility] Medicine Shayla D.OMauro [address] [place] [address] Referral ID Status Reason Start Date Expiration Date Visits V isits Requested Authorized [id number] Modified 06/30/2020 06/30/2021 1 1 Order Encounter Details Date Type Department Care Team Description 07/19/2020 Office Visit Department of Internal Coleman Alford Mellitus Type 2 Without Complication (HCC) (Primary Dx); [place] D.O . Chronic Systolic (Congestive) Heart Fail ure (HCC); [place] [address] Pancreatitis Chronic Recurrent (HCC); [address] [place], [place] Hypertension Essential Prima ry; [place] [address] Asthma Extrinsic Moderate (HCC); [phone] Hyperlipidemia; Elevated Liver Enzyme Abnormal, Aspartat e Transaminase, Serum Glutamic- Oxaloacetic Transaminase, Alanine Transaminase; [phone] Anemia In Chron ic Kidney Disease (Fax) [...] do you attend mosque or Never 2021 orthodoxy services? Do you [...] have completed or the highest Martin, MEd, ZINC CHLORIDE OPERATOR, CAYDEN) degree you have received? Sex [...] is interested in establishing with a local gas plant repairer. Referral has been placed. Has felt weakness [...] (ABNORMAL) Hepatic Function Panel (10/12/2020 9:15 AM DRIVER'S EDUCATION INSTRUCTOR) [facility] Method Time Signature Bilirubin, Total, P 0.5 <=1.2 10/12/2020 [place] mg/dL 10:13 AM DRIVER'S EDUCATION INSTRUCTOR Bilirubin, Direct, P <0.2 0.0 - 0.3 10/12/2020 [place] mg/dL 10:19 AM DRIVER'S EDUCATION INSTRUCTOR Aspartate 32 8 - 48 10/12/2020 [place] Aminotransferase U/L 10:13 AM DRIVER'S EDUCATION INSTRUCTOR (AST), P Alanine 46 7 - 55 10/12/2020 [place] Aminotransferase U/L 10:13 AM DRIVER'S EDUCATION INSTRUCTOR (ALT), P Alkaline 135 (H) 40 - 129 10/12/2020 [place] Phosphatase, P U/L 10:13 AM DRIVER'S EDUCATION INSTRUCTOR Albumin, P 3.9 3.5 - 5.0 10/12/2020 [place] g/dL 10:13 AM DRIVER'S EDUCATION INSTRUCTOR Protein, Total, P 6.6 6.3 - 7.9 10/12/2020 [place] g/dL 10:13 AM DRIVER'S EDUCATION INSTRUCTOR Specimen Anatomical Collection Method Collection Time Receive d Time (Source) Location / / Volume Laterality Blood (Blood, 10/12/2020 9:15 AM 10/12/19 9:27 Venous) DRIVER'S EDUCATION INSTRUCTOR AM DRIVER'S EDUCATION INSTRUCTOR Shayla Alford D.O. LAB BLOOD ADD-ON Performing Organization Address City/State/ZIP Code Phon e Number [facility]- [address] [place] [address] [facility] [place] [address] System in [place] [address] (ABNORMAL) CBC with Differential, Blood (10/12/2020 9:15 AM DRIVER'S EDUCATION INSTRUCTOR) [facility] Method Time Signature Hemoglobin 10.0 (L) 13.2 - 10/12/2020 [place] 16.6 g/dL 9:31 AM DRIVER'S EDUCATION INSTRUCTOR Hematocrit 30.9 (L) 38.3 - 10/12/2020 [place] 48.6 % 9:31 AM DRIVER'S EDUCATION INSTRUCTOR Erythrocytes 3.29 (L) 4.35 - 10/12/2020 [place] 5.65 9:31 AM DRIVER'S EDUCATION INSTRUCTOR x10(12)/L MCV 93.9 78.2 - 10/12/2020 [place] 97.9 fL 9:31 AM DRIVER'S EDUCATION INSTRUCTOR RBC Distrib Width 12.6 11.8 - 10/12/2020 [place] 14.5 % 9:31 AM DRIVER'S EDUCATION INSTRUCTOR Platelet Count 176 135 - 317 10/12/2020 [place] x10(9)/L 9:31 AM DRIVER'S EDUCATION INSTRUCTOR Leukocytes 6.1 3.4 - 9.6 10/12/2020 [place] x10(9)/L 9:31 AM DRIVER'S EDUCATION INSTRUCTOR Neutrophils 4.36 1.56 - 10/12/2020 [place] 6.45 9:31 AM DRIVER'S EDUCATION INSTRUCTOR x10(9)/L Lymphocytes 0.93 (L) 0.95 - 10/12/2020 [place] 3.07 9:31 AM DRIVER'S EDUCATION INSTRUCTOR x10(9)/L Monocytes 0.42 0.26 - 10/12/2020 [place] 0.81 9:31 AM DRIVER'S EDUCATION INSTRUCTOR x10(9)/L Eosinophils 0.28 0.03 - 10/12/2020 [place] 0.48 9:31 AM DRIVER'S EDUCATION INSTRUCTOR x10(9)/L Basophils 0.06 0.01 - 10/12/2020 [place] 0.08 9:31 AM DRIVER'S EDUCATION INSTRUCTOR x10(9)/L Specimen Anatomical Collection Method Collection Time Receive d Time (Source) Location / / Volume Laterality Blood (Blood, 10/12/2020 9:15 AM 10/12/19 9:27 Venous) DRIVER'S EDUCATION INSTRUCTOR AM DRIVER'S EDUCATION INSTRUCTOR Shayla Alford D.O. LAB BLOOD ADD-ON Performing Organization Address City/State/ZIP Code Phon e Number [facility]- [address] [place] [address] [place] [address] System in [place] [address] (ABNORMAL) Basic Metabolic Panel (10/12/2020 9:15 AM DRIVER'S EDUCATION INSTRUCTOR) Analysis Performed At Patho logist Time Signature Potassium, P 4.4 3.6 - 5.2 10/12/2020 [place] mmol/L 10:13 AM DRIVER'S EDUCATION INSTRUCTOR Sodium, P 137 135 - 145 10/12/2020 [place] mmol/L 10:13 AM DRIVER'S EDUCATION INSTRUCTOR Chloride, P 103 98 - 107 10/12/2020 [place] mmol/L 10:13 AM DRIVER'S EDUCATION INSTRUCTOR Bicarbonate, P 26 22 - 29 10/12/2020 [place] mmol/L 10:13 AM DRIVER'S EDUCATION INSTRUCTOR Anion Gap, P 8 7 - 15 10/12/2020 [place] 10:13 AM DRIVER'S EDUCATION INSTRUCTOR BUN (Blood Urea 41 (H) 8 - 24 10/12/2020 [place] Nitrogen), P mg/dL 10:13 AM DRIVER'S EDUCATION INSTRUCTOR Creatinine 1.70 (H) 0.74 - 10/12/2020 [place] 1.35 mg/dL 10:13 AM DRIVER'S EDUCATION INSTRUCTOR eGFR-Black/Afri 44 (L) >=60 10/12/2020 [place] can [place] mL/min/BSA 10:13 AM DRIVER'S EDUCATION INSTRUCTOR Comment: ----ADDITIONAL INFORMATION---- Estimated GFR calculated using the 2009 CKD_EPI creatinine equation. eGFR Non-Black/ 38 (L) >=60 mL/min/BSA 10/12/2020 10:13 AM DRIVER'S EDUCATION INSTRUCTOR [place] Comment: ----ADDITIONAL INFORMATION---- Estimated GFR calculated using the 2009 CKD_EPI creatinine equation. Calcium, Total, P 8.8 8.8 - 10.2 mg/dL 10/12/2020 10:1 3 AM DRIVER'S EDUCATION INSTRUCTOR [place] Glucose, P 305 (H) 70 - 140 mg/dL 10/12/2020 10:13 AM DRIVER'S EDUCATION INSTRUCTOR [place] Specimen Anatomical Collection Method Collection Time Receive d Time (Source) Location / / Volume Laterality Blood (Blood, 10/12/2020 9:15 AM 10/12/19 9:27 Venous) DRIVER'S EDUCATION INSTRUCTOR AM DRIVER'S EDUCATION INSTRUCTOR Shayla Alford D.O. LAB BLOOD ADD-ON Performing Organization Address City/State/ZIP Code Phon e Number [facility]- [address] [place] [address] [place] [address] System in [place] [address] documented in this encounter Visit [...] as of this encounter Care Teams Industrial Maintenance Instructor Relationship Specialty Start Date End Date Shayla Alford D.O. PCP - General Internal Medicine 05/22/[address] [address] documented as of this encounter
--- OUTSIDE RECORDS SUMMARY | 2022-05-28 06:45 | XMS_ITS | Encounter Summary ---
:1945 Author Organization [facility] Address [address] [place] [address] Care Team Providers Name Role Phone Shayla Alford D.O. Primary Care Provider [phone] Reason for Visit Reason Comments Care Coordination Monthly Billing- August 18 Encounter Details Date Type Department Care Team Description 08/28/2020 Patient Outreach Department of [facility] Sommer Oil Dipper rdination Internal Medicine in nShayla D .OMauro (Monthly Billing- [place], [place] [address] August 2020) [address] [place] [phone] Social History Tobacco Use Types Packs/Day Years [...] have completed or the highest Martin, MEd, ARTIFICIAL FLOWER MAKER, CAYDEN) degree you have received? Sex [...] as of this encounter Care Teams Wood Heel Flap Inserter Relationship Specialty Start Date End Date Shayla Alford D.O. PCP - General Internal Medicine 05/22/[address] [address] documented as of this encounter
--- OUTSIDE RECORDS SUMMARY | 2022-05-28 06:45 | XMS_ITS | Encounter Summary ---
:1945 Author Organization [facility] Address [address] [place] [address] Care Team Providers Name Role Phone Shayla Alford D.O. Primary Care Provider [phone] Reason for Visit Reason Comments Care Coordination Follow Up Encounter Details Date Type Department Care Team Description 08/17/2020 Patient Outreach [facility] [place] Internal Medicine A, R.N. (Follow Up) in [place], [facility] [address] [place], [place] [address] [address] [place], [place] [phone] [address] (Work) [phone] Social History Tobacco Use Types Packs/Day Years [...] do you attend jewish or Never 2021 episcopal services? Do you [...] completed or the highest Martin, MEd, HAND FRETTED INSTRUMENT MAKER, CAYDEN) degree you have received? Sex [...] try to call him at that time. ECT PRODUCTION ENGINEER Ronda Fernandez R.N. - 08/17/2020 12:44 PM [...] provider prior to starting new medications, including wcak-ivd-ejyadfq and herbal supplements. PROBLEM SOLVING -Recognize barriers [...] clinic business hours. After clinichours, call Expert reverse engineer Line for concerning symptoms. Call . Appointment line: For Family Medicine appointments in [place] call [phone] or Internal Medicine appointments [phone]. To reschedule or cancel an appointment with your RN Peripheral Vascular Tech, call or leave a message through the switchboard at [phone]. Nurse Peripheral Vascular Tech: ALLEY Bond. You may call Friday-Friday from 7:30-4:00. Primary Care: Keep regular follow-up appointments with your Primary Care Provider. Call your Care Team during office hours or call the clinic (above numbers). You may also send a message to your Provider or Peripheral Vascular Tech/ Care Team through your Patient Online Services [...] apple juice ? cup cooked cereal ??? [place] ? cup haresh freddy ? cup sherbet [...] The patient was instructed to contact the director of managed care with any questions or concerns and statedunderstanding of the information provided. Disposition/Recommendation: recommended continue engagement in self-management activities Education: patient/caller able to teach back Caller agreeable to plan of care: yes The following references were used: none ECT PRODUCTION ENGINEER documented in this encounter Plan of Treatment Not on filedocumented as of this encounter Visit Diagnoses Not on filedocumented in this encounter Additional Health Concerns Assessment Noted Time PHQ-9 Depression Total Score: 18 04/28/2018 11:27 AM C DT documented as of this encounter Care Teams Staffing Rn Relationship Specialty Start Date End Date Shayla Alford D.O. PCP - General Internal Medicine 05/22/20 [address] [place] [address] documented as of this encounter
--- OUTSIDE RECORDS SUMMARY | 2022-05-28 06:46 | XMS_ITS | Encounter Summary ---
:1945 Author Organization [facility] Address [address] [place] [address] Care Team Providers Name Role Phone Shayla Alford D.O. Primary Care Provider [phone] Encounter Details Date Type Department Care Team Description 05/30/2020 Orders Only Department of [facility], [facility] Heart (HCC) Medicine, [place] Ojeda M.D. (Primary Dx) Clinic, in [place], [facility] [address] [place], [place] [address] [facility] [address] [place], [place] [phone] [address] (Work) [phone] Social History Tobacco Use Types Packs/Day Years [...] do you attend catholic or Never 2021 confucianism services? Do you [...] have completed or the highest Martin, MEd, FAN BLADE ALIGNER, CAYDEN) degree you have received? Sex Assigned [...] eGFR-Black/Afri 37 (L) >=60 06/02/2020 OWAT can [place] mL/min/BSA 1:23 PM CDT Comment: ----ADDITIONAL INFORMATION---- Estimated GFR calculated using the 2009 CKD_EPI creatinine equation. eGFR Non-Black/ 32 (L) >=60 mL/min/BSA 06/02/2020 1:23 PM CDT OWAT [place] Comment: ----ADDITIONAL INFORMATION---- Estimated GFR calculated [...] Code Phon e Number [facility]- [address] [place] [address] [place] [address] System in [place] [address] documented in this encounter Visit Diagnoses Diagnosis Failure Heart (HCC) - Primary documented in this encounter Additional Health Concerns Assessment Noted Time PHQ-9 Depression Total Score: 18 04/28/2018 11:27 AM C DT documented as of this encounter Care Teams Senior Category Manager Relationship Specialty Start Date End Date Shayla Alford D.O. PCP - General Internal Medicine 05/22/[address] [place] [address] documented as of this encounter
--- OUTSIDE RECORDS SUMMARY | 2022-05-28 06:46 | XMS_ITS | Encounter Summary ---
:1945 Author Organization [facility] Address [address] [place] [address] Care Team Providers Name Role Phone Shayla Alford D.O. Primary Care Provider [phone] Encounter Details Date Type Department Care Team Description 06/09/2020 Hospital Encounter Department of [place] Screen ing Examination Laboratory Medicine n, Gianna Mcguire For Viral Disease in [place] [address] [address] [place] [phone] Social History Tobacco Use [...] do you attend druze or Never 2021 sabianist services? Do you [...] completed or the highest Martin, MEd, MEDICAL CLAIMS PROCESSOR, CAYDEN) degree you have received? Sex [...] by mouth tabletIndications: daily. 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 As directed per DR capsule bffmby-wytomano-vebauxc Take 1 capsule by 0 10/12/2020 (CREON) mouth as needed for 6,000-19,000-30,[address] capsule gjajax-izrjztve-xtqnfdz Take 1 capsule by 0 10/12/2020 (jkqazk-ulvhwirr-sadbxrw) mouth 3 (three) 6,000-19,000-30,000 Unit times a [...] RNA, V Asymptomatic (06/09/2020 12:34 PM CDT) [facility] Method Time Signature SARS-CoV-2 Swab, 06/09/2020 [...] is performed using the Aptima SARS-CoV-2 assay ([employer] which has received Emergency Use Authori zation (EUA) by the U.S. Food and Drug Administration. Fact sheets for this Emergency Use Autho rization (EUA) assay can be found at the following links: For Healthcare Providers: https://www.MyCityFaces a.gov/media/317642/download For Patients: https://www.fda.gov/media/ 729018/download Specimen Anatomical Collection Method Collection Time Receive d Time (Source) Location / / Volume Laterality Varies 06/09/2020 12:34 06/09/2020 2:18 (Nasopharynx) PM CDT PM CDT Shayla Alford D.O. LAB MICROBIOLOGY - GENERAL ORDERABLES Performing Organization Address City/State/[facility] Phon e Number [facility]- [address] [place] [id number] [place] [address] [place] [address] System [address] documented in this encounter Visit Diagnoses Diagnosis Screening Examination For Viral Disease documented in this encounter Additional Health Concerns Infection Onset Date Last Indicated Resolved Time COVID19 Pending 06/09/2020 06/09/2020 06/09/2020 9:05 PM CDT Assessment Noted Time PHQ-9 Depression Total Score: 18 04/28/2018 11:27 AM C DT documented as of this encounter Care Teams Ice Guard Skating Rink Relationship Specialty Start Date End Date Shayla Alford D.O. PCP - General Internal Medicine 05/22/20 [address] [place] [address] documented as of this encounter
--- OUTSIDE RECORDS SUMMARY | 2022-05-28 06:46 | XMS_ITS | Encounter Summary ---
:1945 Author Organization [facility] Address [address] [place] [address] Care Team Providers Name Role Phone Shayla Alford D.OMauro Primary Care Provider Reason for Visit Reason Comments Pulmonary Consult & tests Encounter Details Date Type Department Care Team Description 05/22/2020 Clinical Communication Department of Alexys [facility] [place] Consult & Internal Medicine enShayla, tests in [facility] [address] [place] [phone] Social History Tobacco Use [...] do you attend religious or Never 2021 yazidism services? Do you [...] have completed or the highest Martin, MEd, EXPERIENCED TRUCK DRIVER, CAYDEN) degree you have received? Sex Assigned at Date Recorded Male 05/21/2018 2:34 PM CDT documented as of this encounter Miscellaneous Notes Telephone Encounter - Coco Luque, CMauroMMauroAMauro - 05/23/2020 10:08 AM CDT Spoke to patient, he did not refuse to make an appt with pulmonary, he says he was [place] I Called over to [facility] and they are reinstating the order and [...] me back in follow-up in the clinic. [facility] scheduling, please do not cancel the referral. [...] may contactour Ancillary Testing Services back at [phone] and we will reinstate the order at that time. Sincerely, [facility] Ancillary Testing Services documented in this [...] documented as of this encounter Care Teams Commissioning Engineer Relationship Specialty Start Date End Date Shayla Alford D.O. PCP - General Internal Medicine 05/22/[address] [address] documented as of this encounter
--- OUTSIDE RECORDS SUMMARY | 2022-05-28 06:46 | XMS_ITS | Encounter Summary ---
:1945 Author Organization [facility] Address [address] [place] [address] Care Team Providers Name Role Phone Chris Billings M.D. Primary Care Provider [phone] Reason for Visit Reason Comments Post Hospital Follow-up Encounter Details Date Type Department Care Team Description 05/18/2020 Clinical Communication Department of [facility] Family MedicineChris I., [facility] in [address] [address] [place], [place] [phone] (Work) [phone] Social History Tobacco Use Types Packs/Day Years [...] do you attend zoroastrianism or Never 2021 quaker services? Do you [...] have completed or the highest Martin, MEd, LABORER POLE CREW, CAYDEN) degree you have received? Sex Assigned [...] failure Appt 05/[address] Da Silva *Cashier Manager is in [facility] documented in this encounter Plan of Treatment Not on filedocumented as of this encounter Visit Diagnoses Not on filedocumented in this encounter Additional Health Concerns Assessment Noted Time PHQ-9 Depression Total Score: 18 04/28/2018 11:27 AM C DT documented as of this encounter Care Teams Director General Relationship Specialty Start Date End Date Chris Billings M.B.B.S., M.D. PCP - General Family Medicine 01/10/20 05/21/[address] [place] [address] [place] [phone] documented as of this encounter
--- OUTSIDE RECORDS SUMMARY | 2022-05-28 06:46 | XMS_ITS | Encounter Summary ---
:1945 Author Organization [facility] Address [address] [place] [address] Care Team Providers Name Role Phone Shayla Alford D.O. Primary Care Provider [phone] Reason for Visit Reason Comments Post Hospital Follow-up Appointment Request (Routine) - Closed Specialty Diagnoses / Procedures Referred By Contact Refer red To Contact Family Medicine Referral ID Status Reason Start Date Expiration Date Visits Requ ested Visits Authorized [id number] Closed 05/18/2020 05/18/2021 1 1 Encounter Details Date Type Department Care Team Description 05/25/2020 Office Visit Department of [facility] Sarath Da Silva O n Chronic Systolic (Congestive) Heart Failure (HCC) (Primary Dx); Medicine, [place] Ojeda M.D. Failure Heart (HCC); Clinic, in [place], [facility] [address] Hypertension Essential Primary; [place], [place] Beat Premature Ventricular; [address] [address] Asthma Extrinsic Moderate (HCC) [place], [place] [phone] [address] (Work) [phone] Social History Tobacco Use Types Packs/Day Years [...] have completed or the highest Martin, MEd, MUD ANALYSIS WELL LOGGING OPERATOR, CAYDEN) degree you have received? Sex [...] recent hospitalizations. Patient was initially admitted to [address] on April 28 2020. He had significant fluid overload. He was treated with furosemide diuresis and he improved. He was dismissed on an increased dose of furosemide. It was felt that he would improve in the outpatient environment. He declined further with increased weight and increased dyspnea. He was admitted to [facility] in [place] on May 03. During that hospitalization he [...] CBC without Differential (05/25/2020 10:42 AM CDT) [employer] gist Method Time Signature Hemoglobin 10.3 (L) [...] e Number [facility]- [address] [place] [address] [facility] [address] [place] [address] System in [place] [address] (ABNORMAL) Basic Metabolic Panel [...] eGFR-Black/Afri 34 (L) >=60 05/25/2020 OWAT can [place] mL/min/BSA 1:16 PM CDT Comment: ----ADDITIONAL INFORMATION---- Estimated GFR calculated using the 2009 CKD_EPI creatinine equation. eGFR Non-Black/ 29 (L) >=60 mL/min/BSA 05/25/2020 1:16 PM CDT OWAT [place] Comment: ----ADDITIONAL INFORMATION---- Estimated [...] Phon e Number [facility]- [address] [place] [address] [place] [address] System in [place] [address] documented in this encounter Visit Diagnoses Diagnosis Acute On Chronic Systolic (Congestive) H eart Failure (HCC) - Primary Failure Heart (HCC) Hypertension Essential Primary Beat Premature Ventricular Asthma Extrinsic Moderate (HCC) documented in this encounter Additional Health Concerns Assessment Noted Time PHQ-9 Depression Total Score: 18 04/28/2018 11:27 AM C DT documented as of this encounter Care Teams Grinder Mill Operator Relationship Specialty Start Date End Date Shayla Alford D.O. PCP - General Internal Medicine 05/22/[address]199 [place] [phone] documented as of this encounter
--- OUTSIDE RECORDS SUMMARY | 2022-05-28 06:46 | XMS_ITS | Encounter Summary ---
:1945 Author Organization [facility] Address [address] [place] [address] Care Team Providers Name Role Phone Shayla Alford D.O. Primary Care Provider [phone] Encounter Details Date Type Department Care Team Description 06/02/2020 Hospital Encounter Department of [facility] Heart ([facility]) Laboratory Medicine Pato Ojeda in [place], [address] [place], [place] [address] [facility] [address] [facility] [place] [phone] (Work) [phone] Social History Tobacco Use Types Packs/Day Years [...] you attend jehovah's witness or Never 2021 christianity services? Do you [...] completed or the highest Martin, MEd, LUNCHROOM MOTHER, CAYDEN) degree you have received? Sex Assigned [...] by mouth tabletIndications: daily. 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 As directed per DR capsule catsly-xyysxgyk-vkrcfpw Take 1 capsule by 0 10/12/2020 (CREON) mouth as needed for 6,000-19,000-30,[address] capsule lcrfkk-lzxaqvao-nzfmbmq Take 1 capsule by 0 10/12/2020 (dudfur-xkjeqbgl-tszktnx) mouth 3 (three) 6,000-19,000-30,000 Unit times a [...] patient: Not applicable Call back number: [phone] Print Cutter: Not applicable Information provided: Called and spoke with patient. Informed him of his results and Dr. Da Silva's recommendations as listed below. department store salesperson/patient received and understood education/information provided: Yes department store salesperson/patient agreed to the Plan of Care: [...] City/State/ZIP Code Phon e Number [facility]- [address] [place] [address] [facility] [place] [address] System in [place] [address] documented in this encounter Visit Diagnoses Diagnosis Failure Heart (HCC) documented in this encounter Additional Health Concerns Assessment Noted Time PHQ-9 Depression Total Score: 18 04/28/2018 11:27 AM C DT documented as of this encounter Care Teams Inside Account Executive Relationship Specialty Start Date End Date Shayla Alford D.O. PCP - General Internal Medicine 05/22/[address] [address] documented as of this encounter
--- OUTSIDE RECORDS SUMMARY | 2022-05-28 06:46 | XMS_ITS | Encounter Summary ---
:1945 Author Organization [facility] Address [address] [place] [address] Care Team Providers Name Role Phone Shayla Alford D.O. Primary Care Provider [phone] Reason for Referral Outpatient (Routine) - Closed Specialty Diagnoses / Procedures Referred By Contact Refer red To Contact Diagnoses Personal History Of Malignant Neoplasm Of Bladder Prasanna Bernal M.D. [facility] Region Procedures Cystoscopy (specific provider) [address] [place] [address] Referral ID Status Reason Start Date Expiration Date Visits Requ ested Visits Authorized [id number] Closed 06/12/2020 06/12/2021 1 1 Reason for Visit Reason Comments Bladder Cancer 6 month cystoscopy Outpatient (Routine) - Canceled Specialty Diagnoses / Procedures Referred By Contact Refer red To Contact Diagnoses Personal History Of Malignant Neoplasm Of Bladder Prasanna [facility]al [facility]. [facility] Procedures Cystoscopy (specific provider) [address] [place] [phone] Referral ID Status Reason Start Date Expiration Date Visits V isits Requested Authorized [id number] Canceled 11/25/2019 11/24/2020 1 1 Encounter Details Date Type Department Care Team Description 06/12/2020 Procedure visit Department of Urology Prasanna Bernal, Personal History Of laron Ptael M.D. [facility] [place] [address] [place]adder [address] [place], [place] [phone] Social History Tobacco Use Types Packs/Day [...] do you attend anabaptism or Never 2021 yazdanism services? Do you [...] completed or the highest Martin, MEd, HAND PACKER/PACKAGER, CAYDEN) degree you have received? Sex Assigned [...] as of this encounter Results (ABNORMAL) Cytology Non-MICROARRAY ANALYST (Scheduled) (06/18/2021 9:08 AM CDT) Component Value Ref Test Analysis Performed At [facility] Method Time Signature 06/19/2021 HKCY (A) [...] City/State/ZIP Code Phon e Number [facility]- [address] [place] [address] [place] [address] documented in this encounter Visit Diagnoses Diagnosis Personal History Of Malignant Neoplasm O f Bladder documented in this encounter Additional Health Concerns Assessment Noted Time PHQ-9 Depression Total Score: 18 04/28/2018 11:27 AM C DT documented as of this encounter Care Teams Furniture Sales Associate Relationship Specialty Start Date End Date Shayla Alford D.O. PCP - General Internal Medicine 05/22/20 [address] [place] [phone] documented as of this encounter
--- OUTSIDE RECORDS SUMMARY | 2022-05-28 06:46 | XMS_ITS | Encounter Summary ---
:1945 Author Organization [facility] Address [address] [place] [address] Care Team Providers Name Role Phone Shayla Alford D.O. Primary Care Provider [phone] Reason for Visit Reason Comments Care Coordination Follow up Encounter Details Date Type Department Care Team Description 06/08/2020 Patient Outreach [facility] A, R.N. (Follow up) in [place], [facility] [address] [place], [place] [address] [address] [place], [place] [phone] [phone] (Work) [phone] Social History Tobacco Use Types Packs/Day Years [...] do you attend uatsdin or Never 2021 gnosticism services? Do you [...] completed or the highest Martin, MEd, COOK CANDY, CAYDEN) degree you have received? Sex Assigned [...] was instructed to contact the health care assistant with any questions or concerns and statedunderstanding [...] documented as of this encounter Care Teams Refrigerated Company Driver Relationship Specialty Start Date End Date Shayla Alford D.O. PCP - General Internal Medicine 05/22/[address] [address] [phone] (work) documented as of this encounter
--- OUTSIDE RECORDS SUMMARY | 2022-05-28 06:46 | XMS_ITS | Encounter Summary ---
:1945 Author Organization [facility] Address [address] [place] [address] Care Team Providers Name Role Phone Shayla Alford D.O. Primary Care Provider [phone] Encounter Details Date Type Department Care Team Description 05/30/2020 Clinical Communication Department of [facility] [place] O[place] M.D. [facility], [facility], [facility] [address] [place], [place] [address] [facility] [address] [place], [place] [phone] [phone] (Work) [phone] Social History Tobacco Use Types Packs/Day Years [...] have completed or the highest Martin, MEd, DIE FINISHER FORGING, CAYDEN) degree you have received? Sex Assigned [...] as of this encounter Care Teams Mechanical Detailer Relationship Specialty Start Date End Date Shayla Alford D.O. PCP - General Internal Medicine 05/22/[address] [phone] documented as of this encounter
--- OUTSIDE RECORDS SUMMARY | 2022-05-28 06:46 | XMS_ITS | Encounter Summary ---
:1945 Author Organization [facility] Address [address] [place] [address] Care Team Providers Name Role Phone Shayla Alford D.O. Primary Care Provider [phone] Encounter Details Date Type Department Care Team Description 05/25/2020 Hospital Encounter Department of Prateek Da Silva Essential Primary; Laboratory Medicine Pato Ojeda Failure Heart (HCC) in [place], [address] JAMIE Dixon [place], [place] [address] [facility] [place] [address] [address] [place], [place] [phone] [address] (Work) [phone] Social History Tobacco Use Types Packs/Day Years [...] do you attend episcopalian or Never 2021 sikh services? Do you [...] completed or the highest Martin, MEd, CAR DETAILER, CAYDEN) degree you have received? Sex Assigned [...] by mouth tabletIndications: daily. 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 As directed per DR capsule wsanks-ufpvgwbe-zbnvzjb Take 1 capsule by 0 10/12/2020 (CREON) mouth as needed for 6,000-19,000-30,[address] capsule govwbe-itwezfrj-kruweon Take 1 capsule by 0 10/12/2020 (wesdxj-polotpnf-oyioune) mouth 3 (three) 6,000-19,000-30,000 Unit times a [...] CBC without Differential (05/25/2020 10:42 AM CDT) [facility] gist Method Time Signature Hemoglobin 10.3 [...] e Number [facility]- [address] [place] [address] [facility] [address] [place] [address] System in [place] [address] (ABNORMAL) Basic Metabolic Panel [...] eGFR-Black/Afri 34 (L) >=60 05/25/2020 OW[facility] can [place] mL/min/BSA 1:16 PM CDT Comment: ----ADDITIONAL INFORMATION---- Estimated GFR calculated using the 2009 CKD_EPI creatinine equation. eGFR Non-Black/ 29 (L) >=60 mL/min/BSA 05/25/2020 1:16 PM CDT OW[facility] [place] Comment: ----ADDITIONAL INFORMATION---- Estimated [...] Number [facility]- [address] [place] [address] [place] [address] System in [place] [address] documented in this encounter Visit Diagnoses Diagnosis Hypertension Essential Primary Failure Heart (HCC) documented in this encounter Additional Health Concerns Assessment Noted Time PHQ-9 Depression Total Score: 18 04/28/2018 11:27 AM C DT documented as of this encounter Care Teams Concrete Pipe Plant Supervisor Relationship Specialty Start Date End Date Shayla Alford D.O. PCP - General Internal Medicine 05/22/[address] [place] [address] documented as of this encounter
--- OUTSIDE RECORDS SUMMARY | 2022-05-28 06:46 | XMS_ITS | Encounter Summary ---
:1945 Author Organization [facility] Address [address] [place] [address] Care Team Providers Name Role Phone Shayla Alford D.O. Primary Care Provider [phone] Encounter Details Date Type Department Care Team [...] do you attend sikhism or Never 2021 yarsani services? Do you [...] have completed or the highest Martin, MEd, SOFTBALL COACH, CAYDEN) degree you have received? Sex [...] documented as of this encounter Care Teams Sanipractic Physician Relationship Specialty Start Date End Date Shayla Alford D.O. PCP - General Internal Medicine 05/22/20 [address] [place] [address] documented as of this encounter
--- OUTSIDE RECORDS SUMMARY | 2022-05-28 06:46 | XMS_ITS | Encounter Summary ---
:1945 Author Organization [facility] Address [address] [place] [address] Care Team Providers Name Role Phone Shayla Alford D.O. Primary Care Provider [phone] Encounter Details Date Type Department Care Team Description 06/14/2020 Diagnostic Division of Pulmonary Rocío As thma Extrinsic Moderate (HCC); Medicine in [place], Gianna Mcguire Effusion Pleural; [place] [address] Dyspnea Multifactorial [address] [place], [place] [address] [phone] Social History Tobacco Use Types Packs/Day Years [...] do you attend druze or Never 2021 pentecostal services? Do you [...] completed or the highest Martin, MEd, STORE PROTECTION SPECIALIST, CAYDEN) degree you have received? Sex [...] documented as of this encounter Care Teams Welt Rougher Relationship Specialty Start Date End Date Shayla Alford D.O. PCP - General Internal Medicine [facility] [place] [address] documented as of this encounter
--- OUTSIDE RECORDS SUMMARY | 2022-05-28 06:46 | XMS_ITS | Encounter Summary ---
:1945 Author Organization [facility] Address [address] [place] [address] Care Team Providers Name Role Phone Shayla Alford D.O. Primary Care Provider [phone] Encounter Details Date Type Department Care Team Description 05/24/2020 Episode Changes Department of [facility] Ronda Fernandez Medicine, [facility], R.NMauro in [place], [place] [address] [facility] [address] [place] [address] [phone] Social History Tobacco Use Types Packs/Day Years [...] do you attend temple or Never 2021 scientologist services? Do you [...] have completed or the highest Martin, Sirena, WARE CLEANER, CAYDEN) degree you have received? Sex Assigned at Date Recorded Male 05/21/2018 2:34 PM CDT documented as of this encounter Plan of Treatment Not on filedocumented as of this encounter Visit Diagnoses Not on filedocumented in this encounter Additional Health Concerns Assessment Noted Time PHQ-9 Depression Total Score: 18 04/28/2018 11:27 AM C DT documented as of this encounter Care Teams Game Producer Relationship Specialty Start Date End Date Shayla Alford D.O. PCP - General Internal Medicine 05/22/[address] [address] documented as of this encounter
--- OUTSIDE RECORDS SUMMARY | 2022-05-28 06:46 | XMS_ITS | Encounter Summary ---
:1945 Author Organization [facility] Address [address] [place] [address] Care Team Providers Name Role Phone Shayla Alford D.O. Primary Care Provider [phone] Reason for Visit Reason Comments Care Coordination Follow up Encounter Details Date Type Department Care Team Description 05/26/2020 Patient Outreach Department of Ronda Fernandezbanner Internal Medicine A, R.N. (Follow up) in [place], [facility] [address] [place], [place] [address] [address] [place], [place] [phone] [address] (Work) [phone] Social History Tobacco Use Types Packs/Day Years [...] do you attend temple or Never 2021 mandaen services? Do you [...] completed or the highest Martin, MEd, INDUSTRIAL SEAMSTRESS, CAYEDN) degree you have received? Sex Assigned at Date Recorded Male 05/21/2018 2:34 PM CDT documented as of this encounter Progress Notes Ronda Fernandez RShama. - 05/26/2020 3:39 PM CDT SUBJECTIVE REASON FOR VISIT Adult Medical Care Coordination Follow-Up HISTORY OF PRESENT ILLNESS Jonnathan Costa reports he had 1 hospitalizations since last contact. Admitted to [facility] in [place], [place]. Summary of the discussion: We discussed [...] to get up if you do fall 5126-53 were mailed to the patient on this [...] side, he will discuss this with his mononitrotoluene operator in [place] on June 06. No concerns at this [...] clinic business hours. After clinichours, call Expert account leader Line for concerning symptoms. Call . Appointment line: For Family Medicine appointments in [place] call [phone] or Internal Medicine appointments [phone]. To reschedule or cancel an appointment with your RN Extender, call or leave a message through the switchboard at [phone]. Nurse Extender: ALLEY Bond. You may call Friday-Friday from 7:30-4:00. Primary Care: Keep regular follow-up appointments with your Primary Care Provider. Call your Care Team during office hours or call the clinic (above numbers). You may also send a message to your Provider or Extender/ Care Team through your Patient Online Services [...] The patient was instructed to contact the medicare contact specialist with any questions or concerns and [...] able to connect with the primary care team/medicare contact specialist when the illnessworsened because I'm not sure [...] as of this encounter Care Teams Senior Advisory Relationship Specialty Start Date End Date Shayla Alford D.O. PCP - General Internal Medicine 05/22/[address] [address] documented as of this encounter
--- OUTSIDE RECORDS SUMMARY | 2022-05-28 06:46 | XMS_ITS | Encounter Summary ---
:1945 Author Organization [facility] Address [address] [place] [address] Care Team Providers Name Role Phone Shayla Alford D.O. Primary Care Provider [phone] Reason for Visit Outpatient (Routine) - Closed Specialty Diagnoses / Procedures Referred By Contact Refer red To Contact Pulmonary Medicine Diagnoses Asthma Extrinsic Moderate (HCC) Chronic Systolic (Congestive) Heart Failure (HCC) Effusion Pleural Dyspnea Multifactorial [facility] Shayla, D.OMauro [address] [place] [address] Referral ID Status Reason Start Date Expiration Date Visits V isits Requested Authorized [id number] Closed Specialty 05/16/2020 05/16/2021 1 1 Services Required Encounter Details Date Type Department Care Team Description 06/14/2020 Office Visit Division of Ailyn Sims Asthma Ex trinsic Moderate (HCC); Pulmonary Medicine Pato Duque Chronic Systolic (Congestive) Heart Fail ure (HCC); in [place], [facility] [address] Effusion Pleural; [place], [place] Dyspnea Multifactorial [address] [address] [place], [place] [phone] (Wo rk) [address] [phone] Social History Tobacco Use Types Packs/Day Years [...] do you attend yazidism or Never 2021 zoroastrian services? Do you [...] completed or the highest Martin, MEd, MEDICAL PRACTICE MANAGER, CAYDEN) degree you have received? Sex [...] documented as of this encounter Care Teams Fluoroscope Operator Relationship Specialty Start Date End Date Shayla Alford D.O. PCP - General Internal Medicine 05/22/20 [address] [place] [address] documented as of this encounter
--- OUTSIDE RECORDS SUMMARY | 2022-05-28 06:46 | XMS_ITS | Encounter Summary ---
:1945 Author Organization [facility] Address [address] [place] [address] Care Team Providers Name Role Phone Shayla Alford D.O. Primary Care Provider [phone] Encounter Details Date Type Department Care Team Description 06/06/2020 Hospital Encounter Department of Dolores, Personal History Of Laboratory Medicine Rhoda Mims. Malignant Neoplasm Of and Pathology, [address] [facility] in [place], [place] [address] [facility] [address] [place], [place] [phone] [address] (Work) [phone] Social History Tobacco Use Types Packs/Day Years [...] do you attend presybeterian or Never 2021 baptism services? Do you [...] completed or the highest Martin, MEd, RUBBER STAMP MAKER, CAYDEN) degree you have received? Sex [...] by mouth tabletIndications: daily. 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 As directed per DR capsule allvqy-zrvtvvpg-mpykuzh Take 1 capsule by 0 10/12/2020 (CREON) mouth as needed for 6,000-19,000-30,[address] capsule eqmdth-fpxiftev-pcxpeod Take 1 capsule by 0 10/12/2020 (nagykf-rywaexap-uqyjcze) mouth 3 (three) 6,000-19,000-30,000 Unit times a [...] Priority Date/Time Associated Diagnosis Comme nts CYTOLOGY NON-RUBBERIZING MECHANIC Routine 06/06/2020 1:33 PM Personal History O f Results for this (SCHEDULED) CDT Malignant Neoplasm procedure are in Of Bladder the results section. documented in this encounter Results Cytology Non-RUBBERIZING MECHANIC (Scheduled) (06/06/2020 1:33 PM CDT) Component Value Ref Test Analysis Performed At [facility] gist Range Method Time Signature 06/07/2020 DTL 2:47 PM CDT Report Dafne Rodriguez M.D. [id number] 06/07/2020 DTL electronically I verify that I [...] [facility] - [address] [place], [place] [address] [facility] [place] [address] [facility] [address] documented in this encounter Visit Diagnoses Diagnosis Personal History Of Malignant Neoplasm O f Bladder documented in this encounter Additional Health Concerns Assessment Noted Time PHQ-9 Depression Total Score: 18 04/28/2018 11:27 AM C DT documented as of this encounter Care Teams Dosimetrist Relationship Specialty Start Date End Date Shayla Alford D.O. PCP - General Internal Medicine 05/22/[address] [address] documented as of this encounter
--- OUTSIDE RECORDS SUMMARY | 2022-05-28 06:46 | XMS_ITS | Encounter Summary ---
:1945 Author Organization [facility] Address [address] [place] [address] Care Team Providers Name Role Phone Shayla Alford D.O. Primary Care Provider [phone] Reason for Visit Reason Comments Care Coordination Monthly billing - 2019 Encounter Details Date Type Department Care Team Description 05/29/2020 [facility] A, R.N. (Monthly billing - in [place], [address] [facility] 2019) [place], [place] [address] [address] [place], [place] [phone] [address] (Work) [phone] Social History Tobacco Use Types Packs/Day Years [...] do you attend jewish or Never 2021 advent services? Do you [...] have completed or the highest Martin, MEd, BOOK CANVASSER, CAYDEN) degree you have received? Sex Assigned [...] as of this encounter Care Teams Assistant Manager Trainee Relationship Specialty Start Date End Date Shayla Alford D.O. PCP - General Internal Medicine 05/22/[address] [address] documented as of this encounter
--- OUTSIDE RECORDS SUMMARY | 2022-05-28 06:46 | XMS_ITS | Encounter Summary ---
:1945 Author Organization [facility] Address [address] [place] [address] Care Team Providers Name Role Phone Shayla Alford D.O. Primary Care Provider Reason for Referral Outpatient (Routine) - Closed Specialty Diagnoses / Procedures Referred By Contact Refer red To Contact Diagnoses Chronic Systolic (Congestive) Heart Failure (HCC) Manuel Evans M.D. [facility] Procedures Echo Transthoracic (TTE) [address] [place] [address] Referral ID Status Reason Start Date Expiration Date Visits Requ ested Visits Authorized [id number] Closed 06/06/2020 06/06/2021 1 1 Outpatient (Routine) - Closed Specialty Diagnoses / Procedures Referred By Contact Refer red To Contact Diagnoses Chronic Systolic (Congestive) Heart Failure (HCC) Manuel Evans M.D. [facility] Procedures ECG 12 Lead [address] [place] [address] Referral ID Status Reason Start Date Expiration Date Visits Requ ested Visits Authorized [id number] Closed 06/06/2020 06/06/2021 1 1 Outpatient (Routine) - Closed Specialty Diagnoses / Procedures Referred By Contact Refer red To Contact Cardiovascular Disease Diagnoses Chronic Systolic (Congestive) Heart Failure (HCC) Manuel Evans [place] M.D. [address] [place] [address] Referral ID Status Reason Start Date Expiration Date Visits Requ ested Visits Authorized [id number] Closed 06/06/2020 06/06/2021 1 1 Reason for Visit Outpatient (Routine) - Closed Specialty Diagnoses / Referred By Contact Referred To Contact Procedures Cardiovascular Diseases / Diagnoses Chronic Systolic (Congestive) Heart Failure (HCC) [facility] Cardiovascular Disease Tulio Mcguire [address] [place] [phone] Referral ID Status Reason Start Date Expiration Date Visits Requ ested Visits Authorized [id number] Closed 05/16/2020 05/16/2021 1 1 Encounter Details Date Type Department Care Team Description 06/06/2020 Comprehensive Visit Department of Werner Evans 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 Hyperlipidemia; [place], [place] [address] Beat Premature Ventricular; [address] [place], [place] Hypert[place] [address] [phone] Social History Tobacco Use Types Packs/Day Years [...] do you attend sabianism or Never 2021 yazidi services? Do you [...] have completed or the highest Martin, MEd, LANDCARE OFFICER, CAYDEN) degree you have received? Sex [...] CLINIC CONSULT REFERRAL Shayla Alford D.O. [address] [place] [phone] CHIEF COMPLAINT Congestive heart failure Supervised by: [...] The patient was seen by Cardiology within [facility] in November 2019 and had a positivestress [...] of breath after dismissal, he presented to [facility] ER on 05/03 and was admitted to [...] visit with his primary care provider in [place] on 05/16, he was found to have [...] by mouth daily., Disp: , Rfl: ??? huqxbu-jdddruwx-jqclyei (CREON) 6,000-19,000-30,[address] capsule, 2 capsules 3 (three) times a day with meals. As directed , Disp: , Rfl: ??? kxtflu-llgupbci-jlgckjw (CREON) 6,000-19,000-30,[address] capsule, Take [...] as needed. , Disp: , Rfl: ??? mnkxwx-eyullhsz-vkmuiuz (mrpzgw-culvnteh-jvkfxrf) 6,000-19,000-30,[address] capsule, Take 1 [...] 08/28/[address] Prasanna Bernal at the [facility]. ??? TONSILLECTOMY ??? VASECTOMY SOCIAL [...] have stabilized on his current regimen with mg daily. He appears euvolemic on exam [...] Results ECG 12 Lead (11/17/2020 12:56 PM SULFURIC ACID PLANT SUPERVISOR) P athologist Signature Ventricular Rate 53 BPM MUSE ECG/Min CT Interval 222 ms MUSE QRSD Interval 112 ms MUSE QT Interval 496 ms MUSE QTC Interval 466 ms MUSE P Redrock -2 degrees MUSE R [place]rock -46 degrees MUSE T Wave Redrock -21 degrees MUSE Specimen Anatomical Collection Method Collection Time Receive d Time (Source) Location / / Volume Laterality 11/17/2020 12:56 11/17/2020 1:09 PM SULFURIC AC[employer] PLANT SUPERVISOR PM SULFURIC ACID PLANT SUPERVISOR Impressions MUSE - 11/17/2020 1:09 PM SULF[employer]ANT SUPERVISOR Sinus bradycardia with 1st degree A-V block Low anterior forces Left axis deviation Non-specific intra-ventricular conductio n delay Nonspecific T wave abnormality When compared with ECG of 06-MAY-2020 13 :05, CT interval has increased Reviewed by SEAN Boo [...] compared with ECG of 06-MAY-2020 13 :05, CT interval has increased Reviewed by SEAN Boo Manuel Evans M.D. ECG ORDERABLES Performing Organization Address City/State/ZIP Code Phon e Number GUILLERMO JHAVERI (TTE) 2D ECHO DOPPLER COLOR (11/17/2020 11:23 AM SULFUR[employer] PLANT SUPERVISOR) [facility] Method Time Signature Ejection Fraction 50 [...] / / Volume Laterality 11/17/2020 9:48 AM SULFURIC ACID PLANT SUPERVISOR Impressions 11/17/2020 2:48 PM SULFUR[employer] ACID PLANT SUPERVISOR Intravenous Lumason ultrasound enhancement agent(s) administered to [...] effusion. For the complete report, see the [employer] Documents. Narrative 11/17/2020 2:48 PM SULFUR[employer] ACID PLANT SUPERVISOR For the complete report, see the [employer] Documents. Final Impressions 1. Mild-moderately enlarged left [...] and Lateral 2 Views (11/17/2020 9:31 AM SULFURIC ACID PLANT SUPERVISOR) Anatomical Region Laterality Modality Chest, Thoracic RST LOS, Thoracic ARZ LOS, Thoracic N/A Digital Radiography FLA LOS Specimen (Source) Anatomical Collection Method Collection Time Re ceived Time Location / / Volume Laterality 11/17/2020 9:50 AM SULFURIC ACID PLANT SUPERVISOR Impressions 11/17/2020 9:51 AM SULFUR[employer] ACID PLANT SUPERVISOR In the interval from the prior study of 05/18/2020, a small right pleural effusion has decreased in size. Trace left pleural effusion has likely resolved. No definite additional changes . Calcified aorta. Borderline size of cardiac silhouette with slight pulmonary venous hypertension. Mitral annular calcification. Degenerative changes thor acic spine. Narrative 11/17/2020 9:51 AM SULFURIC ACID PLANT SUPERVISOR EXAM: ??DX CHEST AP OR PA AND [...] B-Type Natriuretic Peptide (BNP) (11/17/2020 9:03 AM SULFUR[employer]ID PLANT SUPERVISOR) P athologist Signature NT-Pro BNP 2558 (H) <=119 pg/mL 11/17/2020 DTL 10:08 AM SULFURIC ACID PLANT SUPERVISOR Comment: NT-proBNP values less than 300 pg/mL [...] (Blood, 11/17/2020 9:03 AM 11/17/19 9:26 Venous) SULF[employer] PLANT SUPERVISOR AM SULFURIC ACID PLANT SUPERVISOR Manuel Evans M.D. LAB BLOOD ADD-ON Performing Organization Address City/[facility]/ZIP Code Phon e Number [facility] - [address] [place] [address] [facility] Potassium (11/17/2020 9:03 AM SULFURIC ACID PLANT SUPERVISOR) athologist Signature Potassium, S 4.3 3.6 - 5.2 11/17/2020 DTL mmol/L 10:08 AM SULFURIC ACID PLANT SUPERVISOR Specimen Anatomical Collection Method Collection Time Receive d Time (Source) Location / / Volume Laterality Blood (Blood, 11/17/2020 9:03 AM 11/17/19 9:26 Venous) SULF[employer] PLANT SUPERVISOR AM SULFURIC ACID PLANT SUPERVISOR Manuel Evans M.D. LAB BLOOD ADD-ON Performing Organization Address City/[facility]/ZIP Code Phon e Number [facility] - [address] [place] [id number] [place] [address] [facility] Bicarbonate (11/17/2020 9:03 AM SULFURIC ACID PLANT SUPERVISOR) athologist Signature Bicarbonate, S 25 22 - 29 11/17/2020 DTL mmol/L 10:08 AM SULFURIC ACID PLANT SUPERVISOR Specimen Anatomical Collection Method Collection Time Receive d Time (Source) Location / / Volume Laterality Blood (Blood, 11/17/2020 9:03 AM 11/17/19 9:26 Venous) SULFUR[employer] PLANT SUPERVISOR AM SULFURIC ACID PLANT SUPERVISOR Manuel Evans M.D. LAB BLOOD ADD-ON Performing Organization Address City/State/ZIP [facility] Phon e Number [facility] - [address] (ABNORMAL) S-TSH (Thyroid-Stimulating Hormone - Sensitive) (11/17/2020 9:03 AM SULFURIC ACID PLANT SUPERVISOR) P athologist Signature TSH, Sensitive 19.4 (H) 0.3 - 4.2 11/17/2020 DTL mIU/L 10:07 AM SULFURIC ACID PLANT SUPERVISOR Specimen Anatomical Collection Method Collection Time Receive d Time (Source) Location / / Volume Laterality Blood (Blood, 11/17/2020 9:03 AM 11/17/19 9:26 Venous) SULFUR[employer] ACID PLANT SUPERVISOR AM SULFURIC ACID PLANT SUPERVISOR Manuel Evans M.D. LAB BLOOD ADD-ON Performing Organization Address City/State/ZIP Code Phon e Number [facility] - [address] [place], [place] [address] [place] [address] [facility] [address] (ABNORMAL) CBC with Differential, Blood (11/17/2020 9:03 AM SULFURIC [employer]ID PLANT SUPERVISOR) Patholo gist Method Time Signature Hemoglobin 10.2 (L) 13.2 - 11/17/2020 DTL 16.6 g/dL 9:34 AM SULFURIC ACID PLANT SUPERVISOR Hematocrit 30.8 (L) 38.3 - 11/17/2020 DTL 48.6 % 9:34 AM SULFURIC ACID PLANT SUPERVISOR Erythrocytes 3.33 (L) 4.35 - 11/17/2020 DTL 5.65 9:34 AM SULFURIC ACID PLANT SUPERVISOR x10(12)/L MCV 92.5 78.2 - 11/17/2020 DTL 97.9 fL 9:34 AM SULFURIC AC[employer] PLANT SUPERVISOR RBC Distrib Width 12.6 11.8 - 11/17/2020 DTL 14.5 % 9:34 AM SULFURIC ACID PLANT SUPERVISOR Platelet Count 167 135 - 317 11/17/2020 DTL x10(9)/L 9:34 AM SULFURIC ACID PLANT SUPERVISOR Leukocytes 6.6 3.4 - 9.6 11/17/2020 DTL x10(9)/L 9:34 AM SULFURIC ACID PLANT SUPERVISOR Neutrophils 4.75 1.56 - 11/17/2020 DTL 6.45 9:34 AM SULFURIC ACID PLANT SUPERVISOR x10(9)/L Lymphocytes 0.96 0.95 - 11/17/2020 DTL 3.07 9:34 AM SULFURIC ACID PLANT SUPERVISOR x10(9)/L Monocytes 0.44 0.26 - 11/17/2020 DTL 0.81 9:34 AM SULFURIC ACID PLANT SUPERVISOR x10(9)/L Eosinophils 0.35 0.03 - 11/17/2020 DTL 0.48 9:34 AM SULFURIC ACID PLANT SUPERVISOR x10(9)/L Basophils 0.06 0.01 - 11/17/2020 DTL 0.08 9:34 AM SULFURIC ACID PLANT SUPERVISOR x10(9)/L Specimen Anatomical Collection Method Collection Time Receive d Time (Source) Location / / Volume Laterality Blood (Blood, 11/17/2020 9:03 AM 11/17/19 9:26 Venous) SULFUR[employer] PLANT SUPERVISOR AM SULFURIC ACID PLANT SUPERVISOR Manuel Evans M.D. LAB BLOOD ADD-ON Performing Organization Address City/State/ZIP Code Phon e Number [facility] - [address] [place], [place] [address] [place] [address] [facility] [address] (ABNORMAL) Lipid Panel (11/17/2020 9:03 AM SULFURIC ACID PLANT SUPERVISOR) athologist Signature Cholesterol, 118 mg/dL 11/17/2020 DTL Total 10:07 AM SULFURIC ACID PLANT SUPERVISOR Comment: ----REFERENCE VALUE---- Desirable: < 200 Borderline high: 200 - 239 High: > or = 240 Triglycerides 90 mg/dL 11/17/2020 10:07 AM SULFURIC ACID PLANT SUPERVISOR DT L Comment: ----REFERENCE VALUE---- Normal: <150 Borderline high: 150-199 High: 200-499 Very high: > or =500 Cholesterol, HDL, S 34 (L) >=40 mg/dL 11/17/2020 10:07 AM SULFURIC ACID PLANT SUPERVISOR DTL Calculated LDL 66 mg/dL 11/17/2020 10:07 AM SULFURIC ACID PLANT SUPERVISOR D TL Comment: ----REFERENCE VALUE---- Desirable: <100 Above Desirable: 100-129 Borderline high: 130-159 High: 160-189 Very high: > or =190 Cholesterol, Non-HDL, Calculated 84 mg/dL 021 10:07 AM SULFURIC ACID PLANT SUPERVISOR DTL Comment: ----REFERENCE VALUE---- Desirable: <130 Above Desirable: 130-159 Borderline high: 160-189 High: 190-219 Very high: > or =220 Specimen Anatomical Collection Method Collection Time Receive d Time (Source) Location / / Volume Laterality Blood (Blood, 11/17/2020 9:03 AM 11/17/19 9:26 Venous) SULFURIC ACID PLANT SUPERVISOR AM SULFURIC ACID PLANT SUPERVISOR Manuel L Clavell M.D. LAB BLOOD ADD-ON Performing Organization Address City/[facility] Code Phon e Number [facility] - [address] [place], [place] [address] [place] [id number] [place] [address] (ABNORMAL) BUN (Blood Urea Nitrogen) (11/17/2020 9:03 AM SULFURIC ACID PLANT SUPERVISOR) P athologist Signature BUN (Blood Urea 57 (H) 8 - 24 11/17/2020 DTL Nitrogen), S mg/dL 10:08 AM SULFURIC ACID PLANT SUPERVISOR Specimen Anatomical Collection Method Collection Time Receive d Time (Source) Location / / Volume Laterality Blood (Blood, 11/17/2020 9:03 AM 11/17/19 9:26 Venous) SULFURIC ACID PLANT SUPERVISOR AM SULFURIC ACID PLANT SUPERVISOR Manuel Evans M.D. LAB BLOOD ADD-ON Performing Organization Address City/[facility]/ZIP Code Phon e Number [facility] - [address] [place], [place] [address] [place] [address] [place] [address] [address] AST (Aspartate Aminotransferase) (11/17/2020 9:03 AM SULFURIC ACID PLANT SUPERVISOR) Patholo gist Method Time Signature Aspartate 31 8 - 48 11/17/2020 DTL Aminotransferase U/L 10:08 AM SULFURIC ACID PLANT SUPERVISOR (AST), S Specimen Anatomical Collection Method Collection Time Receive d Time (Source) Location / / Volume Laterality Blood (Blood, 11/17/2020 9:03 AM 11/17/19 9:26 Venous) SULFURIC ACID PLANT SUPERVISOR AM SULFURIC ACID PLANT SUPERVISOR Manuel Evans M.D. LAB BLOOD ADD-ON Performing Organization Address City/[facility] Code Phon e Number [facility] - [address] [place], [place] [address] [place] [id number] [place] [address] (ABNORMAL) Creatinine with Estimated GFR (11/17/2020 9:03 AM SULFURIC ACID PLANT SUPERVISOR) Analysis Performed At Patho logist Time Signature Creatinine 1.86 (H) 0.74 - 11/17/2020 DTL 1.35 mg/dL 10:07 AM SULFURIC ACID PLANT SUPERVISOR eGFR-Non 34 (L) >=60 11/17/2020 DTL Black/ mL/min/BSA 10:07 AM SULFURIC ACID PLANT SUPERVISOR Ivorian Comment: ----ADDITIONAL INFORMATION---- Estimated GFR calculated using the 2009 CKD_EPI creatinine equation. eGFR-Black/ 39 (L) >=60 mL/min/BSA 2020 10:07 AM SULFURIC ACID PLANT SUPERVISOR DTL Comment: ----ADDITIONAL INFORMATION---- Estimated GFR calculated using the 2009 CKD_EPI creatinine equation. Specimen Anatomical Collection Method Collection Time Receive d Time (Source) Location / / Volume Laterality Blood (Blood, 11/17/2020 9:03 AM 11/17/19 9:26 Venous) SULFURIC ACID PLANT SUPERVISOR AM SULFURIC ACID PLANT SUPERVISOR Manuel Evans M.D. LAB BLOOD ADD-ON Performing Organization Address [facility] Phon e Number [facility] - [address] [place], [place] [address] [place] [address] (ABNORMAL) Glucose, Fasting (11/17/2020 9:03 AM SULFURIC ACID PLANT SUPERVISOR) P athologist Signature Glucose, P 219 (H) 70 - 100 11/17/2020 DTL mg/dL 9:56 AM SULFURIC ACID PLANT SUPERVISOR Last Intake 1 hr 11/17/2020 DTL 9:26 AM SULFURIC ACID PLANT SUPERVISOR Specimen Anatomical Collection Method Collection Time Receive d Time (Source) Location / / Volume Laterality Blood (Blood, 11/17/2020 9:03 AM 11/17/19 9:26 Venous) SULFURIC ACID PLANT SUPERVISOR AM SULFURIC ACID PLANT SUPERVISOR Manuel Evans M.D. LAB BLOOD NON ADD-ON Performing Organization Address City/[facility] Code Phon e Number [facility] - [address] [place], [place] [address] [place] [address] Sodium (11/17/2020 9:03 AM SULFURIC ACID PLANT SUPERVISOR) P athologist Signature Sodium, S 140 135 - 145 11/17/2020 DTL mmol/L 10:08 AM SULFURIC ACID PLANT SUPERVISOR Specimen Anatomical Collection Method Collection Time Receive d Time (Source) Location / / Volume Laterality Blood (Blood, 11/17/2020 9:03 AM 11/17/19 9:26 Venous) SULFURIC ACID PLANT SUPERVISOR AM SULFURIC ACID PLANT SUPERVISOR Manuel Evans M.D. LAB BLOOD ADD-ON Performing Organization Address City/State/ZIP Code Phon e Number [facility] - [address] [place], [place] [address] [place] [address] [facility] [address] documented [...] documented as of this encounter Care Teams Wallpaper Hanger Helper Relationship Specialty Start Date End Date Shayla Alford D.O. PCP - General Internal Medicine 05/22/[address] [phone] documented as of this encounter
--- OUTSIDE RECORDS SUMMARY | 2022-05-28 06:46 | XMS_ITS | Encounter Summary ---
:1945 Author Organization [facility] Address [address] [place] [address] Care Team Providers Name Role Phone Shayla Alford D.O. Primary Care Provider [phone] Reason for Visit Reason Comments Care Coordination follow up Encounter Details Date Type Department Care Team Description 06/20/2020 [facility] A, R.N. (follow up) in [place], [facility] [address] [place], [place] [address] [address] [place], [place] [phone] [address] (Work) [phone] Social History Tobacco Use Types Packs/Day Years [...] do you attend episcopalian or Never 2021 holiness services? Do you [...] have completed or the highest Martin, MEd, FOAMITE MIXER, CAYDEN) degree you have received? Sex Assigned [...] of his medical care followed by the [place] in [place]. Upcoming [place] appointments were reviewed. Patient's plan of care was discussed and mailed to him via [employer] at this time. Chronic disease follow up: [...] provider prior to starting new medications, including ggzd-ujx-hfpjcpe and herbal supplements. PROBLEM SOLVING -Recognize barriers [...] clinic business hours. After clinichours, call Expert size mixer Line for concerning symptoms. Call . Appointment line: For Family Medicine appointments in [place] call [phone] or Internal Medicine appointments [phone]. To reschedule or cancel an appointment with your RN Advertising Rep, call or leave a message through the switchboard at [phone]. Nurse Advertising Rep: ALLEY Bond. You may call Friday-Friday from 7:30-4:00. Primary Care: Keep regular follow-up appointments with your Primary Care Provider. Call your Care Team during office hours or call the clinic (above numbers). You may also send a message to your Provider or Advertising Rep/ Care Team through your Patient Online Services [...] apple juice ? cup cooked cereal ??? [place] ? cup haresh freddy ? cup sherbet [...] The patient was instructed to contact the wound care technician with any questions or concerns and statedunderstanding [...] as of this encounter Care Teams Electric Razor Mechanic Relationship Specialty Start Date End Date Shayla Alford D.O. PCP - General Internal Medicine 05/22/[address] [phone] (work) documented as of this encounter
--- OUTSIDE RECORDS SUMMARY | 2022-05-28 06:46 | XMS_ITS | Encounter Summary ---
:1945 Author Organization [facility] Address [address] [place] [address] Care Team Providers Name Role Phone Shayla Alford D.O. Primary Care Provider [phone] Reason for Visit Reason Comments [facility] Nurse Line Encounter Details Date Type Department Care Team Description 05/23/2020 Clinical Division of Ailyn Sims se Line Communication Pulmonary Medicine Pato Duque in [place], [address] [place] [address] [address] [facility] [address] [place], [place] [phone] [phone] (Work) [phone] Social History Tobacco Use Types Packs/Day Years [...] do you attend sikh or Never 2021 sikhism services? Do you [...] completed or the highest Martin, MEd, SCHEDULING REPRESENTATIVE, CAYDEN) degree you have received? Sex Assigned at Date Recorded Male 05/21/2018 2:34 PM CDT documented as of this encounter Miscellaneous Notes Telephone Encounter - Zoë Yi Neto - 05/23/2020 10:28 AM CDT ([facility] and [facility] locations only: If the patient is not having symptoms and is requesting COVID-19 Nasal Swab testing only, use the process listed in the COVID-19 Patient Requesting COVID PCR Test OTG COVID-19 [place] Patient Requesting COVID PCR Test). 1. Do [...] de santiago appt office/vl Scheduling Contact Number: [phone] documented in this encounter Plan of Treatment Not on filedocumented as of this encounter Visit Diagnoses Not on filedocumented in this encounter Additional Health Concerns Assessment Noted Time PHQ-9 Depression Total Score: 18 04/28/2018 11:27 AM C DT documented as of this encounter Care Teams Wheel Of Fortune Dealer Relationship Specialty Start Date End Date Shayla Alford D.O. PCP - General Internal Medicine 05/22/[address] [phone] documented as of this encounter
--- OUTSIDE RECORDS SUMMARY | 2022-05-28 06:46 | XMS_ITS | Encounter Summary ---
:1945 Author Organization [facility] Address [address] [place] [address] Care Team Providers Name Role Phone Shayla Alford D.O. Primary Care Provider [phone] Reason for Visit Reason Comments Care Coordination Encounter Details Date Type Department Care Team Description 05/31/2020 [facility] Out[facility] [place] [address] [facility] [address] [place] [phone] Social History Tobacco Use Types Packs/Day Years [...] completed or the highest Martin, MEd, REGIONAL DEDICATED TRUCK DRIVER, CAYDEN) degree you have received? [...] documented as of this encounter Care Teams Tagman Relationship Specialty Start Date End Date Shayla Alford D.O. PCP - General Internal Medicine 05/22/20 [address] [place] [phone] documented as of this encounter
--- OUTSIDE RECORDS SUMMARY | 2022-05-28 06:46 | XMS_ITS | Encounter Summary ---
:1945 Author Organization [facility] Address [address] [place] [address] Care Team Providers Name Role Phone Shayla Alford D.O. Primary Care Provider [phone] Encounter Details Date Type Department Care Team Description 06/14/2020 Diagnostic Division of Pulmonary [place]ío As thma Extrinsic Moderate (HCC); Medicine in [place], Gianna Mcguire Effusion Pleural; [place] [address] Dyspnea Multifactorial [address] [place], [place] [phone] Social History Tobacco Use Types Packs/Day Years [...] do you attend worship or Never 2021 pentecostal services? Do you [...] have completed or the highest Martin, MEd, COPY CHASER, CAYDEN) degree you have received? Sex Assigned [...] Signature VC MAX PRE 4.67 L 06/15/2020 [facility] 9:12 AM CDT SUITE FVC 4.67 L 06/15/2020 [facility] 9:12 AM CDT SUITE FEV1 3.31 L 06/15/2020 [facility] 9:12 AM CDT SUITE FEV1/FVC 70.90 % 06/15/2020 [facility] 9:12 AM CDT SUITE ZJP96-26% 2.26 L/s 06/15/2020 [facility] 9:12 AM CDT SUITE PEF PRE 7.72 L/s 06/15/2020 [facility] 9:12 AM CDT SUITE FET PRE 7.95 sec 06/15/2020 [facility] 9:12 AM CDT SUITE DLCO 14.95 ml/(min*mm 06/15/2020 [facility] Hg) 9:12 AM CDT SUITE DLCOc 17.52 ml/(min*mm 06/15/2020 [facility] Hg) 9:12 AM CDT SUITE HB 10.30 g(Hb)/dL 06/15/2020 [facility] 9:12 AM CDT SUITE VA 7.30 L 06/15/2020 [facility] 9:12 AM CDT SUITE D1RruMxdn 98.00 % 06/15/2020 [facility] 9:12 AM CDT SUITE PulseRest 42.00 1/min 06/15/2020 [facility] 9:12 AM CDT SUITE [id number] 97.00 % 06/15/2020 [facility] 9:12 AM CDT SUITE PulseExer 61.00 1/min 06/15/2020 [facility] 9:12 AM CDT SUITE EXER TIME 1.30 min 06/15/2020 [facility] 9:12 AM CDT SUITE STEP HEIGHT 9.00 Inch 06/15/2020 [facility] PRE 9:12 AM CDT SUITE % PRED VC MAX 103.74 % 06/15/2020 [facility] 9:12 AM CDT SUITE FVC% 103.74 % 06/15/2020 [facility] 9:12 AM CDT SUITE FEV1% 99.73 % 06/15/2020 [facility] 9:12 AM CDT SUITE % PRED 95.24 % 06/15/2020 [facility] FEV1/FVC 9:12 AM CDT SUITE % PRED FEF 97.12 % 06/15/2020 [facility] 25-75% 9:12 AM CDT SUITE % PRED PEF 86.66 % 06/15/2020 [facility] 9:12 AM CDT SUITE PRED VC MAX 4.50 L 06/15/2020 [facility] 9:12 AM CDT SUITE PRED FVC 4.50 L 06/15/2020 [facility] 9:12 AM CDT SUITE PRED FEV 1 3.32 L 06/15/2020 [facility] 9:12 AM CDT SUITE PRED FEV1/FVC 74.44 % 06/15/2020 [facility] 9:12 AM CDT SUITE PRED FEF 2.33 L/s 06/15/2020 [facility] 25-75% 9:12 AM CDT SUITE PRED PEF 8.91 L/s 06/15/2020 [facility] 9:12 AM CDT SUITE Specimen (Source) Anatomical Collection Method Collection Time Re ceived Time Location / / Volume Laterality 06/14/2020 1:25 PM CDT Narrative This result has an attachment that is no t available. Shayla Alford D.O. PFT ORDERABLES Performing Organization Address City/State/ZIP Code Phon e Number [facility] SUITE [facility] SUITE NA documented in this encounter Visit Diagnoses Diagnosis Asthma Extrinsic Moderate (HCC) Effusion Pleural Dyspnea Multifactorial documented in this encounter Additional Health Concerns Assessment Noted Time PHQ-9 Depression Total Score: 18 04/28/2018 11:27 AM C DT documented as of this encounter Care Teams Engineer Assistant Relationship Specialty Start Date End Date Shayla Alford D.O. PCP - General Internal Medicine 05/22/[address] [phone] documented as of this encounter
--- OUTSIDE RECORDS SUMMARY | 2022-05-28 06:47 | XMS_ITS | Encounter Summary ---
:1945 Author Organization [facility] Address [address] [place] [address] Care Team Providers Name Role Phone Chris Billings M.D. Primary Care Provider [phone] Encounter Details Date Type Department Care Team Description 05/16/2020 Hospital Encounter Department of Bakkali-Derkse Anemia ; Laboratory Medicine n, Gianna Mcguire Chronic Systolic (Congestive) Heart Fail ure (HCC) in [place], [address] [address] [place] [phone] Social History Tobacco Use [...] do you attend jew or Never 2021 sabianism services? Do you [...] have completed or the highest Martin, MEd, COPIER OPERATOR, CAYDEN) degree you have received? Sex [...] tabletIndications: daily. 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 As directed per capsule wshhkq-thhnjfnq-mfsezgu Take 1 capsule by 0 10/12/2020 ([facility]) [...] eGFR-Black/Afri 34 (L) >=60 05/16/2020 [facility] [place] mL/min/BSA 3:37 PM CDT Comment: ----ADDITIONAL INFORMATION---- Estimated GFR calculated using the 2009 CKD_EPI creatinine equation. eGFR Non-Black/ 29 (L) >=60 mL/min/BSA 05/16/2020 3:37 PM CDT [facility] [place] Comment: ----ADDITIONAL INFORMATION---- Estimated GFR calculated using [...] Code Phon e Number [facility]- [address] [place] [address] [place] [address] System in [place] [address] (ABNORMAL) CBC with Differential, Blood (05/16/2020 1:51 PM CDT) [facility] gist Method Time Signature Hemoglobin 10.2 (L) [...] Code Phon e Number [facility]- [address] [place] [address] [place] [address] System in [place] [address] [facility] documented in this encounter Visit Diagnoses Diagnosis Anemia Chronic Systolic (Congestive) Heart Fail ure (HCC) documented in this encounter Additional Health Concerns Assessment Noted Time PHQ-9 Depression Total Score: 18 04/28/2018 11:27 AM C DT documented as of this encounter Care Teams Steamer Operator Relationship Specialty Start Date End Date Chris Billings M.B.BRhoda Walker. PCP - General Family Medicine 01/10/20 05/21/[address] [place] [address] [place] [phone] documented as of this encounter
--- OUTSIDE RECORDS SUMMARY | 2022-05-28 06:47 | XMS_ITS | Encounter Summary ---
:1945 Author Organization [facility] Address [address] [place] [address] Care Team Providers Name Role Phone Chris Billings M.D. Primary Care Provider [phone] Reason for Referral Outpatient (Routine) - Closed Specialty Diagnoses / Procedures Referred By Contact Refer red To Contact Pulmonary Medicine Diagnoses Asthma Extrinsic Moderate (HCC) Chronic Systolic (Congestive) Heart Failure (HCC) Effusion Pleural Dyspnea [facility]actorial [facility] Shayla D.Sabrina [address] [place] [phone] Referral ID Status Reason Start Date Expiration Date Visits V isits Requested Authorized [id number] Closed Specialty 05/16/2020 05/16/2021 1 1 Services Required MRI/CAT/PET Scan (Routine) - Closed Specialty Diagnoses / Procedures Referred By Contact Refer red To Contact Radiology Diagnoses Effusion Pleural Shayla Alford [facility] Region Procedures CT Chest without IV Contrast D.O. [address] [place] [phone] Referral ID Status Reason Start Date Expiration Date Visits Requ ested Visits Authorized [id number] Closed 05/16/2020 05/16/2021 1 1 Outpatient (Routine) - Closed Specialty Diagnoses / Referred By Contact Referred To Contact Procedures Cardiovascular Diseases / Diagnoses Chronic Systolic (Congestive) Heart Failure (HCC) Enmanuel Alford [facility] Cardiovascular Disease Tulio Mcguire [address] [place] [address] Referral ID Status Reason Start Date Expiration Date Visits Requ ested Visits Authorized [id number] Closed 05/16/2020 05/16/2021 1 1 Reason for Visit Reason Comments Post Hospital Follow-up Shortness of Breath Fatigue Blood sugar Discuss Other Balance issues Sleeping Problem Terrrible flucuations with s leecorazon Appointment Request (Routine) - Closed Specialty Diagnoses / Procedures Referred By Contact Refer red To Contact Family Medicine Referral ID Status Reason Start Date Expiration Date Visits Requ ested Visits Authorized [id number] Closed 05/05/2020 05/05/2021 1 1 Encounter Details Date Type Department Care Team Description 05/16/2020 Office Visit Department of [place]ío Dyspnea Mul tifactorial (Primary Dx); Internal Medicine in , Gianna Mcguire Asthma Extrinsic Moderate (HCC); [place], [place] [address] Chronic Systolic (Congestive) Heart Fail ure (HCC); [address] [place], [place] Effusion Pleural; [place] [address] Anemia [phone] Social History Tobacco Use Types [...] do you attend episcopal or Never 2021 tenriism services? Do you belong to any clubs or No 10/09/2021 organizations such as episcopal groups, unions, fraXplenty or athletic groups, or school groups? How [...] have completed or the highest Martin, MEd, LUMP ROOM SUPERVISOR, CAYDEN) degree you have received? [...] problems. The patient use [facility] in [place], and has not been seen by myself [...] problems. The patient use [facility] in [place], and has not been seen by myself [...] (Congestive) Heart 0 05/16/2020 consult (clinic) Failure ([facility]) (Approxima te), Expires: 05/16/2023 Pulmonary Medicine - Outpatient Routine Asthma Extrinsic Exp ected: General consult Referral Moderate ([facility]) 05/17/2020, (clinic) Chronic Systolic Expires: (Congestive) Heart 3 Failure ([facility]) Effusion Pleural Dyspnea Multifactorial documented as of [...] Signature VC MAX PRE 4.67 L 06/15/2020 [facility] 9:12 AM CDT SUITE FVC 4.67 L 06/15/2020 [facility] 9:12 AM CDT SUITE FEV1 3.31 L 06/15/2020 [facility] 9:12 AM CDT SUITE FEV1/FVC 70.90 % 06/15/2020 [facility] 9:12 AM CDT SUITE TIM56-24% 2.26 L/s 06/15/2020 [facility] 9:12 AM CDT SUITE PEF PRE 7.72 L/s 06/15/2020 [facility] 9:12 AM CDT SUITE FET PRE 7.95 sec 06/15/2020 [facility] 9:12 AM CDT SUITE DLCO 14.95 ml/(min*mm 06/15/2020 [facility] Hg) 9:12 AM CDT SUITE DLCOc 17.52 ml/(min*mm 06/15/2020 [facility] Hg) 9:12 AM CDT SUITE HB 10.30 g(Hb)/dL 06/15/2020 [facility] 9:12 AM CDT SUITE VA 7.30 L 06/15/2020 [facility] 9:12 AM CDT SUITE K5JuqJwcr 98.00 % 06/15/2020 [facility] 9:12 AM CDT SUITE PulseRest 42.00 1/min 06/15/2020 [facility] 9:12 AM CDT SUITE J6AlcYekq 97.00 % 06/15/2020 [facility] 9:12 AM CDT SUITE PulseExer 61.00 [...] AM CDT SUITE FEV1% 99.73 % 06/15/2020 [facility] 9:12 AM CDT SUITE % PRED 95.24 % 06/15/2020 [facility] FEV1/FVC 9:12 AM CDT SUITE % PRED FEF 97.12 % 06/15/2020 [facility] 25-75% 9:12 AM CDT SUITE % PRED PEF 86.66 % 06/15/2020 [facility] 9:12 AM CDT SUITE PRED VC MAX 4.50 L 06/15/2020 [facility] 9:12 AM CDT SUITE PRED FVC 4.50 L 06/15/2020 [facility] 9:12 AM CDT SUITE PRED FEV 1 3.32 L 06/15/2020 [facility] 9:12 AM CDT SUITE PRED FEV1/FVC 74.44 % 06/15/2020 [facility] 9:12 AM CDT SUITE PRED FEF 2.33 L/s 06/15/2020 [facility] 25-75% 9:12 AM CDT SUITE PRED PEF 8.91 L/s 06/15/2020 [facility] 9:12 AM CDT SUITE Specimen (Source) Anatomical Collection Method Collection Time Re ceived Time Location / / Volume Laterality 06/14/2020 1:25 PM CDT Narrative This result has an attachment that is no t available. Shayla Alford D.O. PFT ORDERABLES Performing Organization Address City/State/ZIP Code Phon e Number [facility] NA (ABNORMAL) CBC with Differential, Blood (05/16/2020 1:51 PM CDT) [facility] gist Method Time Signature Hemoglobin 10.2 [...] City/State/ZIP Code Phon e Number [facility]- [address] [address] [place] [address] System in [place] [address] [facility] (ABNORMAL) Basic Metabolic Panel (05/16/2020 [...] eGFR-Black/Afri 34 (L) >=60 05/16/2020 [facility] [place] mL/min/BSA 3:37 PM CDT Comment: ----ADDITIONAL INFORMATION---- Estimated GFR calculated using the 2009 CKD_EPI creatinine equation. eGFR Non-Black/ 29 (L) >=60 mL/min/BSA 05/16/2020 3:37 PM CDT [facility] [place] Comment: ----ADDITIONAL INFORMATION---- Estimated GFR calculated using [...] City/State/ZIP Code Phon e Number [facility]- [address] [place] [address] [place] [address] System in [place] [address] Chest without IV [...] as of this encounter Care Teams Chief Guard Relationship Specialty Start Date End Date Chris Billings M.B.B.S., M.D. PCP - General Family Medicine 01/10/20 05/21/[address] [facility] [address] [place] [phone] documented as of this encounter
--- OUTSIDE RECORDS SUMMARY | 2022-05-28 06:47 | XMS_ITS | Encounter Summary ---
:1945 Author Organization [facility] Address [address] [place] [address] Care Team Providers Name Role Phone Shayla Alford D.OMauro Primary Care Provider Reason for Visit Reason Comments Pre-visit Testing Orders orders Encounter Details Date Type Department Care Team Description 05/17/2020 Clinical Communication Department of Alexys Pre -visit Testing Internal Medicine enShayla, Orders (or ders) in [place] [address] [place] [phone] Social History Tobacco Use Types Packs/Day [...] have completed or the highest Martin, MEd, IMPLEMENTATION DIRECTOR, CAY[place]) degree you have received? Sex Assigned at Date Recorded Male 05/21/2018 2:34 PM CDT documented as of this encounter Miscellaneous Notes Telephone Encounter - Shayla Alford D.O. - 05/19/2020 10:08 AM CDT I can't order a covid test .. there is no swab order available to us in [place] in the [facility] system.The physician needing the test can call a testing center and place a verbal order Telephone Encounter - Patria Lyles - 05/18/2020 4:00 PM CDT Good afternoon, [facility] requires covid testing to be done at a [facility] facility. We will need orders for covid testing. Thank you. Telephone Encounter - Shayla Alford D.O. - 05/18/2020 2:11 PM CDT Completed, COVID tests already done on [facility] and negative Telephone Encounter - Patria Lyles - 05/17/2020 11:35 AM CDT Good morning, You are referring patient to [facility] for Asthma. There are pre requisite orders for testing that also need to be ordered. A Exhaled Nitric Oxide (oral), Pulmonary Function test, and a Rhinoscopy, and covid swab tests. Please order for [facility]. Thank you. documented in this encounter Plan of Treatment Not on filedocumented as of this encounter Visit Diagnoses Not on filedocumented in this encounter Additional Health Concerns Assessment Noted Time PHQ-9 Depression Total Score: 18 04/28/2018 11:27 AM C DT documented as of this encounter Care Teams Special Forces Warrant Officer Relationship Specialty Start Date End Date Shayla Alford D.O. PCP - General Internal Medicine 05/22/20 [address] [place] [phone] documented as of this encounter
--- OUTSIDE RECORDS SUMMARY | 2022-05-28 06:47 | XMS_ITS | Encounter Summary ---
:1945 Author Organization [facility] Address [address] [place] [address] Care Team Providers Name Role Phone Chris Billings M.D. Primary Care Provider [phone] Encounter Details Date Type Department Care Team Description 05/18/2020 Hospital Encounter Department of Waldemar Poon Eff usion Pleural Radiology in M.DMauro [place], [place] [address] [place], [place] [phone] Social History Tobacco Use Types Packs/Day [...] do you attend catholic or Never 2021 caodaism services? Do you [...] have completed or the highest Martin, MEd, DISTRIBUTION CENTER ASSISTANT, [place]) degree you have received? Sex [...] by mouth tabletIndications: daily. 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 As directed per DR capsule leurqj-qxzfgnze-nvexplc Take 1 capsule by 0 10/12/2020 ([facility]) [...] AND LATERAL 2 VIEWS Procedure Note Cody yLons M.D. - 05/18/2020Forma tting of this note [...] documented as of this encounter Care Teams Prop Worker Relationship Specialty Start Date End Date Chris Billings M.B.B.S., M.D. PCP - General Family Medicine 01/10/20 05/21/[address] [place] [address] [place] [address] documented as of this encounter
--- OUTSIDE RECORDS SUMMARY | 2022-05-28 06:47 | XMS_ITS | Encounter Summary ---
:1945 Author Organization [facility] Address [address] [place] [address] Care Team Providers Name Role Phone Chris Billings M.D. Primary Care Provider [phone] Reason for Referral MRI/CAT/PET Scan (Routine) - Closed Specialty Diagnoses / Procedures Referred By Contact Refer red To Contact Radiology Diagnoses Effusion Pleural Shayla Alford [facility] [place] Region Procedures CT Chest without IV Contrast D.O. [address] [place] [phone] Referral ID Status Reason Start Date Expiration Date Visits Requ ested Visits Authorized [id number] Closed 05/16/2020 05/16/2021 1 1 Reason for Visit MRI/CAT/PET Scan (Routine) - Closed Specialty Diagnoses / Procedures Referred By Contact Refer red To Contact Radiology Diagnoses Effusion Pleural Shayla Alford [facility] [place] [facility] Procedures CT Chest without IV Contrast D.O. [address] [place] [phone] Referral ID Status Reason Start Date Expiration Date Visits Requ ested Visits Authorized [id number] Closed 05/16/2020 05/16/2021 1 1 Encounter Details Date Type Department Care Team Description 05/16/2020 Hospital Encounter Department of Charmaine Alford Pleural Radiology in Shayla [place] D[place] O. [place] [address] [place] [phone] Social History Tobacco Use Types Packs/Day Years [...] do you attend restorationist or Never 2021 episcopalian services? Do you [...] have completed or the highest Martin, MEd, SIENE MAKER, CAYDEN) degree you have received? Sex [...] by mouth tabletIndications: daily. 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 As directed per DR capsule miuxqv-fectnssb-mhnsplw Take 1 capsule by 0 10/12/2020 ([facility]) [...] documented as of this encounter Care Teams Earth Burner Relationship Specialty Start Date End Date Chris Billings M.B.B.S., M.D. PCP - General Family Medicine 01/10/20 05/21/[address] [place] [address] [place] [phone] documented as of this encounter
--- OUTSIDE RECORDS SUMMARY | 2022-05-28 06:47 | XMS_ITS | Encounter Summary ---
:1945 Author Organization [facility] Address [address] [place] [address] Care Team Providers Name Role Phone Chris Billings M.D. Primary Care Provider [phone] Reason for Visit Reason Comments [facility] Follow-up [place] 05/06/20 @ 1707 Encounter Details Date Type Department Care Team Description 05/08/2020 Clinical Department of Ronda Fernandez [facility] Communication Family Medicine, A, R.N. Follow-up ([facility], [address] [facility] 05/06/20 @ 1707) in [facility] [phone] [place] [address] [place], [place] (Work) [phone] Social History Tobacco Use [...] do you attend nondenominational or Never 2021 jainism services? Do you [...] completed or the highest Martin, MEd, FIRE CODE INSPECTOR, CAYDEN) degree you have received? Sex [...] to a telephonic visit by the RN Ammunition Supervisor later this week. All questions answered. Telephone [...] they see those symptoms. 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 He is a [...] are currently paneled with a PCP in [place], but say it is very difficult to get in to see him or even talk to him on the phone. There is no openings for IM providers at [facility] in [place].They are hoping to establish with an IM provider in [place] as soon as they can get the provider at their upcoming [facility] to refer them. Follow-up Appointment PCP [...] documented as of this encounter Care Teams Batter Mixer Relationship Specialty Start Date End Date hCris Billings M.B.B.S., M.D. PCP - General Family Medicine 01/10/20 05/21/[address] [place] [phone] documented as of this encounter
--- OUTSIDE RECORDS SUMMARY | 2022-05-28 06:47 | XMS_ITS | Encounter Summary ---
:1945 Author Organization [facility] Address [address] [place] [address] Care Team Providers Name Role Phone Chris Billings M.D. Primary Care Provider [phone] Encounter Details Date Type Department Care Team Description 05/03/2020 Clinical Communication Department of Internal Shlomo Ojeda, Medicine in [facility], [facility] [address] [place] [phone] Social History Tobacco Use Types Packs/Day Years [...] do you attend pentecostalism or Never 2021 oriental orthodox services? Do [...] have completed or the highest Martin, MEd, CORONARY CLINICAL SPECIALIST, [place]) degree you have received? Sex [...] is looking for lab results. [place] - [phone] documented in this encounter Plan of Treatment Not on filedocumented as of this encounter Visit Diagnoses Not on filedocumented in this encounter Additional Health Concerns Infection Onset Date Last Indicated Resolved Time COVID19 Pending 05/03/2020 05/03/2020 05/03/2020 10:07 PM CDT Assessment Noted Time PHQ-9 Depression Total Score: 18 04/28/2018 11:27 AM C DT documented as of this encounter Care Teams Automobile Upholsterer Apprentice Relationship Specialty Start Date End Date Chris Billings M.B.B.S., M.D. PCP - General Family Medicine 01/10/20 05/21/[address] [place] [phone] documented as of this encounter
--- OUTSIDE RECORDS SUMMARY | 2022-05-28 06:47 | XMS_ITS | Encounter Summary ---
:1945 Author Organization [facility] Address [address] [place] [address] Care Team Providers Name Role Phone Chris Billings M.D. Primary Care Provider [phone] Encounter Details Date Type Department Care Team Description 05/09/2020 Hospital Encounter Department of Shlomo jOeda On Chronic 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); Laboratory Medicine C, BI TECHNICAL LEAD, Chronic Kidney Disease Stage 3 Glomerular Filtration Rate 30 To 59 (HCC) in [facility] [address] [place] [id number] Social History Tobacco Use Types Packs/Day Years [...] do you attend scientologist or Never 2021 catholic services? Do you [...] completed or the highest Martin, MEd, SENIOR PHARMACY TECHNICIAN, [place]) degree you have received? Sex [...] by mouth tabletIndications: daily. 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 As directed per DR capsule eckfqt-sbqwygop-bxvpfjw Take 1 capsule by 0 10/12/2020 (CREON) [...] e Number [facility]- [address] [place] [address] [place] [address] System in [place] [address] (ABNORMAL) Creatinine with Estimated GFR (05/09/2020 10:15 AM CDT) Analysis Performed At [facility] Time Signature Creatinine 2.04 (H) 0.74 - 05/09/2020 [place] 1.35 mg/dL 11:03 AM CDT eGFR-Black/Afri 36 (L) >=60 05/09/2020 [place] can [place] mL/min/BSA 11:03 AM CDT Comment: ----ADDITIONAL INFORMATION---- Estimated GFR calculated using the 2009 CKD_EPI creatinine equation. eGFR Non-Black/ 31 (L) >=60 mL/min/BSA 05/09/2020 11:03 AM CDT [place] Comment: ----ADDITIONAL INFORMATION---- Estimated GFR calculated using the 2009 CKD_EPI creatinine equation. Specimen Anatomical Collection Method Collection Time Receive d Time (Source) Location / / Volume Laterality Blood (Blood, 05/09/2020 10:15 05/09/2020 Venous) AM CDT 10:17 AM CDT Shlomo Ojeda APRN, C.N.P. LAB BLOOD ADD-ON Performing Organization Address City/State/ZIP Code Phon e Number [facility]- [address] [place] [address] [place] [address] System in [place] [address] documented in this encounter [...] as of this encounter Care Teams Freelance Graphic Designer Relationship Specialty Start Date End Date Chris Billings M.B.B.S., M.D. PCP - General Family Medicine 01/10/20 05/21/[address] [place] [address] [place] [id number] documented as of this encounter
--- OUTSIDE RECORDS SUMMARY | 2022-05-28 06:47 | XMS_ITS | Encounter Summary ---
:1945 Author Organization [facility] Address [address] [place] [address] Care Team Providers Name Role Phone Chris Billings M.D. Primary Care Provider [phone] Encounter Details Date Type Department Care Team Description 05/03/2020 Clinical Communication Department of Lulu Huang Cardiovascular Diseases Tae, RJustina in [facility] [address] [place] [phone] Social History Tobacco Use Types Packs/Day Years [...] do you attend baptism or Never 2021 jehovah's witness services? Do [...] completed or the highest Martin, MEd, HAT BLOCKER, [place]) degree you have received? Sex Assigned at Date Recorded Male 05/21/2018 2:34 PM CDT documented as of this encounter Miscellaneous Notes Telephone Encounter - Lulu Huang R.N. - 05/03/2020 11:04 AM CDT Name of person contacted: Diallo Relationship to patient: MATTHEW on file Call back number: [phone] Net Programmer Analyst: Not applicable Information provided: Communication note 05/03/20 10:58 am Shlomo Ojeda CNP. Patient's in agreement with plan as outlined per Shlomo. linesperson/patient received and understood education/information provided: Yes linesperson/patient agreed to the Plan of Care: Yes Telephone Encounter - Shlomo Ojeda APRN, C.N.P. - 05/03/2020 10:54 AM CDT His renal function alone is not a reason to be directly admitted to the hospital (his renal functionis basically the same as the day he was dismissed from the hospital [facility]), but his weight gain and worsening oxygenation numbers are. He would need to go through the emergency room for consideration of admission. If his oxygenation numbers are above 90% currently, I think it is safe for him to bedriven to [facility] in [place]. If his oxygen numbers are below 90% he should goto the closest emergency room. Telephone Encounter - Lulu Huang R.N. - 05/03/2020 9:36 AM CDT ASSESSMENT Patient's , Diallo (MATTHEW on-file), transferred from call center with concern regarding patient. Diallo is requesting for Jonnathan to be admitted to [place] for possible kidney failure. She stated her [...] and stated she will drive him to [facility] for evaluation. PLAN Follow-up with emergency department, , Diallo, will transport patient. Disposition/Recommendation: recommended to report to the nearest emergency department. Information/Education: patient/caller able to teach back. Preference for [facility]. Caller agreeable to plan of care: yes. The following references were used: nursing clinical judgement. (ANDREW Keenan) documented in this encounter Plan of Treatment Not on filedocumented as of this encounter Visit Diagnoses Not on filedocumented in this encounter Additional Health Concerns Assessment Noted Time PHQ-9 Depression Total Score: 18 04/28/2018 11:27 AM C DT documented as of this encounter Care Teams Research Administrator Relationship Specialty Start Date End Date Chris Billings M.B.B.S. MDahlia. PCP - General Family Medicine 01/10/20 05/21/[address] [place] [address] Teresa [place], [place] [phone] documented as of this encounter
--- OUTSIDE RECORDS SUMMARY | 2022-05-28 06:47 | XMS_ITS | Encounter Summary ---
:1945 Author Organization [facility] Address [address] [place] [address] Care Team Providers Name Role Phone Chris Billings M.D. Primary Care Provider [phone] Reason for Visit Reason Comments Fatigue Auth/Cert Specialty Diagnoses / Procedures Referred By Contact Refer red To Contact Diagnoses Arrhythmia Ventricular Failure Heart (HCC) Failure Renal Acute (Acute Kidney Injury) (HCC) Procedures I49.9 (ICD-10-CM) - Arrhythmia Ventricular Referral ID Status Reason Start Date Expiration Date Visits Requ ested Visits Authorized [id number] 1 1 Encounter Details Date Type Department Care Team Description 05/03/2020 - Hospital Encounter [facility] Brandon Ellsworth D.O. [address] [place] [phone] Failure Heart (HCC) (Primary Dx); 05/06/2020 [facility] Michael J, M.D. [address] [place] [phone] Arrhythmia Ventricular; [facility] Roselia Mark M.D. [address] [place] [phone] Failure Renal Acute (Acute Kidney Injury ) (HCC) [facility], Tenth Floor [address] [place] [phone] Social History Tobacco Use Types Packs/Day Years [...] do you attend religion or Never 2021 [employer] services? Do you [...] have completed or the highest Martin, MEd, [employer] [place]) degree you have received? Sex [...] Roselia Mark M.D. Discharge Provider Team: ERNESTO [facility] PRINCIPAL DIAGNOSIS Acute [...] disturbances should be promptly examined by an broiler chef or cook. The dose should be reduced or discontinued in patients with persistent hepatic enzyme levels of 3times the upper limit of normal values. FOLLOW-UP APPOINTMENTS Scheduled Appointments 05/09/2020 10:30 AM LAB [address] [place] [address] Laboratory Medicine 05/11/2020 10:00 AM Rusty Da Silva M.D. Family Medicine 05/18/2020 8:10 AM LAB 01 [facility] Laboratory Medicine 05/25/2020 8:15 AM [...] L fluid restriction PRIMARY PROVIDER No care pricing/signage team member to display Primary Care Providers: Chris Billings M.B.B.S., M.D. (General) [address] [place] [phone] Primary Care Provider Primary Care Provider MARGIN [...] management, yearly follow up with a local Early Intervention School Psychologist and Dietitian is recommended. Please check with your insurance company asdiabetes education visits are commonly covered. Your primary care provider can provide referrals foreducation. AttachmentsThe following attachments cannot be sent through Care Everywhere. Amiodarone (By mouth) (Burmese)Hydralazine (By mouth) (Burmese)documented in this encounter Medications at Time of [...] by mouth tabletIndications: daily. 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 jecnra-vzwjhebm-zrwokvx Take 1 capsule by 0 10/12/2020 (CREON) [...] 2:12 PM CDT SUBJECTIVE I met Mr. oCsta this morning. The patient had good diuresis [...] difficulty to identifying a primary physician at [facility]. We will try to help him to [...] in provider's residence to the patient in [facility]. Plan was discussed with the patient. DCS Pager [phone] will continue to follow. Call primary service for diabetes concerns between [phone]. Primary service to contact DCS via hospital research manufacturing operator for questions. Marce Sy APRN, C.N.P. [...] ASSESSMENT / PLAN #1 Increased Ventricular Ectopy [place] #2 Acute on Chronic Left Ventricular Systolic [...] ASSESSMENT / PLAN #1 Increased Ventricular Ectopy [place] #2 Acute on Chronic Left Ventricular Systolic [...] Dhiraj Michelle M.D. Admitting service: [facility] HISTORY OF PRESENT ILLNESS Mr. Costa is a 74 y.o. male who presented to [place] emergency department for Heart failure and was [...] 33% He is being admitted to the [facility] service for further evaluation and management of [...] Cardiology evaluation in Emergency Department here at [facility]. The following portions of the patient's history were reviewed and updated as appropriate: allergies,current medications, family history, medical history, social history, surgical history and problem list. PAST MEDICAL HISTORY Past Medical History: Diagnosis Date ??? Apnea Sleep Obstructive 06/18/2011 intolerant to CPAP therapy ??? Asthma (HCC) 10/16/2009 Pulmonary symptomatology, diagnosis at the [facility] unclear, but probably some degree of COPD. [...] INSERTION INTRAOCULAR LENS Left 04/2008 At the [facility] ??? LASER OF PROSTATE W/ GREEN LIGHT PVP 08/28/2016 Greenlight photoselective vaporization of the prostate and cystoscopy with bladder biopsy and fulguration of a 2cm area; 08/28/[address] Prasanna Bernal at the [facility]. ??? TONSILLECTOMY ??? VASECTOMY REVIEW OF SYSTEMS [...] by mouth daily., 05/03/2020 at 0800 ??? ojwlas-uusgffkr-rfxwttp (CREON) 6,000-19,000-30,[address] capsule, 2 [...] for: Diabetes, Unknown at Unknown time ??? qjaeog-gqydmaxz-jwtyxmo (CREON) 6,000-19,000-30,[address] capsule, Take [...] dullness in both bases. Precordium is quiet. [place] indistinct. First and second heart sounds are [...] Friday - Friday, 7:30 to 4:00pm at [phone]. To qualify for participation in a Cardiac [...] Consult conducted via real-time audio/video technology by Shieal Kingsley APRN, C.N.PMauro, D.N.P. in provider's residence to the patient in [facility]. Thank you for the consult. DCS Pager [phone] will follow. Call primary service for diabetes concerns between [phone]. Primary service to contact DCS via hospital research manufacturing operator for questions. Rodney Moreno M.D. - [...] Master's degree (e.g., MA, MS, Martin, MEd, [employer]) Occupational History Employer: RETIRED Social Needs [...] week Gets together: Twice a week Attends [employer] service: 1 to 4 times per year [...] swelling. The patient was referred to the [facility] ED by our physician daughter for further [...] radiology report(s). Case reviewed with other health care giver, including Cardiology and Admitting Provider. Final Diagnoses: [...] also initiated on hydralazine for afterload reduction. Lxyikymzae485 mg TID was initiated for antiarrhythmic therapy. [...] - STAT 05/05/2020 1:39 Results for HOSPITAL TELEVISION STATION MANAGER - PM CDT this proc edure MONITORED [...] MUSE QTC Interval 467 ms MUSE P [place] 24 degrees MUSE R [place] 7 degrees MUSE T Wave [place] 87 degrees MUSE Specimen Anatomical Collection Method [...] (05/06/2020 4:21 AM CDT) [facility] Signature Potassium, S 4.0 3.6 - [...] 05/06/2020 DTL Black/ mL/min/BSA 6:25 AM CDT Serbian Comment: ----ADDITIONAL INFORMATION---- Estimated GFR calculated [...] APRNNKerry LAB BLOOD ADD-ON Performing Organization Address City/[facility]/ZIP [facility] Phon e Number [facility] - [address] [place], [place] [address] [facility] [place] [address] [facility] 200 [facility] (ABNORMAL) Glucose, POCT (05/05/2020 10:08 PM [...] Provider LAB POCT ORDERABLES-MANUAL Performing Organization Address City/[facility]/ZIP [facility] Phon e Number POC [facility] [address] [place] [address] [facility] [place] [address] [place] [facility] 200 [facility] (ABNORMAL) Glucose, POCT (05/05/2020 5:11 PM [...] Address City/State/ZIP Code Phon e Number POC [facility] [address] [place] [address] [facility] [place] [address] [place] POC [address] [facility] (ABNORMAL) Basic Metabolic Panel (05/05/2020 3:08 PM [...] 05/05/2020 DTL Black/ mL/min/BSA 4:56 PM CDT Serbian Comment: ----ADDITIONAL INFORMATION---- Estimated GFR calculated [...] C.N.P. LAB BLOOD ADD-ON Performing Organization Address City/[facility]/ZIP Code Phon e Number [facility] - 200 [place], [place] [address] [facility] [place] [address] Laboratories-[facility] 200 [facility] HOLTER MONITOR - HOSPITAL TELEVISION STATION MANAGER - MONITORED IN HOSPITAL OR ED DISCHARGE (05/05/2020 1:39 PM CDT) [facility] gist Method Time Signature Recording Date HOLTER SENTINEL VT Runs 0 count HOLTER SENTINEL SVE Max Per HOLTER Hour Time SENTINEL Min Heart Rate 46 bpm HOLTER SENTINEL SVE Percent 2 percent HOLTER Beats SENTINEL VE Max Per 421 count HOLTER Hour SENTINEL Min Heart Rate [id number] HOLTER Time SENTINEL Tachycardia 0 count HOLTER Runs SENTINEL VE Max Per [id number] HOLTER Hour Time SENTINEL Holter Pauses 0 count HOLTER SENTINEL AF Count 0 count HOLTER SENTINEL SVE Max Per 129 count HOLTER Hour SENTINEL VE Percent 2 percent HOLTER Beats SENTINEL Analysis Date 20,200,810 HOLTER SENTINEL Bradycardia 0 count HOLTER Runs SENTINEL Max Heart Rate 71 bpm HOLTER SENTINEL Max Heart Rate [id number] HOLTER Time SENTINEL Mean Heart 56 bpm [...] (05/05/2020 12:13 PM CDT) Analysis Performed At [facility] logist Time Signature Glucose, POCT, 204 (H) [...] Address City/State/ZIP Code Phon e Number [facility] [address] [place] [address] [place] [address] [facility] [address] Microscopic Automated (05/05/2020 11:21 AM CDT) P athologist Signature Microscopy Normal 05/05/2020 1:54 PATY PM CDT Specimen Anatomical Collection Method Collection Time Receive d Time (Source) Location / / Volume Laterality Urine 05/05/2020 11:21 05/05/2020 AM CDT 12:23 PM CDT Dat Perez M.D. LAB URINE ORDERABLES Performing Organization Address City/State/ZIP Code Phon e Number [facility] - [address] [place], [place] [address] [place] [address] Laboratories-[facility] [address] Creatinine, Random, Urine (05/05/2020 [...] Organization Address City/State/ZIP Code Phon e Number [facility] - [address] [place], [place] [address] [place] [address] [facility] [address] Urea, Random, Urine (05/05/2020 [...] Organization Address City/State/ZIP Code Phon e Number [facility] - [address] [place] [address] [facility] [address] Laboratories-[facility] [address] (ABNORMAL) Urinalysis with Microscopic: Urine, Clean Catch (05/05/2020 11:21 AM CDT) [facility] Method Time Signature Source Midstream 05/05/2020 PATY 12:24 PM CDT Appearance Normal Normal 05/05/2020 PATY 1:17 PM CDT Osmolality, U 322 150 - 1150 05/05/2020 PATY mOsm/kg 1:35 PM CDT pH, U 5.6 4.5 - 8.0 05/05/2020 PATY 1:35 PM CDT Comment: ----ADDITIONAL INFORMATION---- This test was developed and its performa nce characteristics determined by [facility] in a manner co nsistent with CLIA [...] Organization Address City/State/ZIP Code Phon e Number [facility] - [address] [place] [address] [facility] [place] [address] Laboratories-[facility] [address] ECG MONITOR RECORD (05/05/2020 [...] change. Patchy medial right lower lung consolidations. Dgkyk-gj-agitqkxn right and small left p leural effusion. [...] change. Patchy medial right lower lung consolidations. Ptbyn-al-jglxrppu right and small left p leural effusion. Cardiomegaly. Aortic calcifications. No acute osseous abnorma lities. Dat Perez M.D. IMG DIAGNOSTIC IMAGING PROCE DURES (ABNORMAL) Glucose, POCT (05/05/2020 8:05 AM CDT) Analysis Performed At [facility] Time Signature Glucose, POCT, 152 (H) [...] Address City/State/ZIP Code Phon e Number POC [facility] [address] [place] [address] [facility] [place] [address] [place] P[facility] [address] (ABNORMAL) Basic Metabolic Panel (05/05/2020 4:21 AM CDT) Analysis Performed At [facility] Signature Potassium, S 3.9 3.6 [...] 05/05/2020 DTL Black/ mL/min/BSA 5:13 AM CDT Serbian Comment: ----ADDITIONAL INFORMATION---- Estimated GFR calculated [...] Organization Address City/State/ZIP Code Phon e Number [facility] - [address] [place] [address] [facility] [place] [address] Laboratories-[facility] 200 [facility] (ABNORMAL) CBC without Differential (05/05/2020 4:21 AM CDT) [facility] gist Method Time Signature Hemoglobin 9.2 (L) [...] C.N.P. LAB BLOOD ADD-ON Performing Organization Address City/[facility]/ZIP Code Phon e Number [facility] - 200 [place], [place] [address] 200 [facility] (ABNORMAL) Glucose, POCT (05/04/2020 8:43 PM [...] Provider LAB POCT ORDERABLES-MANUAL Performing Organization Address City/[facility] Phon e Number [facility] 200 [place] [address] [address] [address] POC 200 [facility] Glucose, POCT (05/04/2020 4:49 PM CDT) Analysis Performed At [facility] Signature Glucose, POCT, 79 70 [...] Provider LAB POCT ORDERABLES-MANUAL Performing Organization Address City/[facility] Phon e Number POC [facility] [address] [place] [address] [address] [address] POC 200 [facility] (ABNORMAL) Basic Metabolic Panel (05/04/2020 4:07 PM CDT) Analysis Performed At [facility] logis Time Signature Potassium, S 4.5 3.6 [...] 05/04/2020 DTL Black/ mL/min/BSA 5:03 PM CDT Serbian Comment: ----ADDITIONAL INFORMATION---- Estimated GFR calculated [...] Organization Address City/State/ZIP Code Phon e Number [facility] - [address] [place], [place] [address] [facility] [address] Laboratories[facility] [address] (ABNORMAL) Magnesium (05/04/2020 11:46 AM CDT) P athologist Signature Magnesium, S 2.4 (H) 1.7 - 2.3 05/04/2020 DTL mg/dL 12:25 PM CDT Specimen Anatomical Collection Method Collection Time Receive d Time (Source) Location / / Volume Laterality Blood (Blood, 05/04/2020 11:46 05/04/2020 Venous) AM CDT 12:14 PM CDT Dat Perez M.D. LAB BLOOD ADD-ON Performing Organization Address City/[facility]/ZIP Code Phon e Number [facility] - [address] [place], [place] [address] [facility] [place] [address] [facility] [address] [facility] Glucose, POCT (05/04/2020 11:45 AM CDT) Analysis [...] Provider LAB POCT ORDERABLES-MANUAL Performing Organization Address City/[facility] Phon e Number POC [facility] [address] [place] [address] [facility] [address] POC [address] [facility] (ABNORMAL) Glucose, POCT (05/04/2020 7:59 AM CDT) P athologist Signature Glucose, POCT, 191 (H) 70 - 140 05/04/2020 PCLX B mg/dL 8:06 AM CDT Specimen Anatomical Collection Method Collection Time Receive d Time (Source) Location / / Volume Laterality Blood 05/04/2020 7:59 AM 0 8:07 CDT AM CDT Unknown Provider LAB POCT ORDERABLES-MANUAL Performing Organization Address City/[facility]/ZIP [facility] Phon e Number POC [facility] [address] [place] [address] POC [address] (ABNORMAL) Prothrombin [...] C.N.P. LAB BLOOD ADD-ON Performing Organization Address City/[facility] Phon e Number [facility] [address] [place] [address] Laboratories[address] Magnesium (05/04/2020 4:20 AM CDT) P athologist Signature Magnesium, S 1.9 1.7 - 2.3 05/04/2020 DTL mg/dL 5:44 AM CDT Specimen Anatomical Collection Method Collection Time Receive d Time (Source) Location / / Volume Laterality Blood (Blood, 05/04/2020 4:20 AM 05/04/20 20 5:25 Venous) CDT AM CDT Lulu Wilkins APRN, C.N.P. LAB BLOOD ADD-ON Performing Organization Address City/[facility] Phon e Number [facility] - [address] (ABNORMAL) Comprehensive Metabolic Panel (05/04/2020 4:20 [...] 05/04/2020 DTL Black/ mL/min/BSA 5:44 AM CDT Serbian Comment: ----ADDITIONAL INFORMATION---- Estimated GFR calculated [...] C.N.P. LAB BLOOD ADD-ON Performing Organization Address City/State/RUST Code Phon e Number [facility] - 200 [place], [place] [address] [place] [address] Laboratories[address] (ABNORMAL) CBC without Differential (05/04/2020 4:20 [...] Organization Address City/State/ZIP Code Phon e Number [facility] - 200 [place], [place] [address] (ABNORMAL) Troponin T, 5th Generation (05/04/2020 [...] C.N.P. LAB BLOOD ADD-ON Performing Organization Address City/[facility]/ZIP Code Phon e Number [facility] - [address] [place] [address] [facility] [place] [address] Laboratories-[facility] [address] (ABNORMAL) Glucose, POCT (05/03/2020 [...] Provider LAB POCT ORDERABLES-MANUAL Performing Organization Address City/[facility]/RUST Code Phon e Number [facility] [address] [place] [address] [place] [address] [place] POC 200 [facility] SARS Coronavirus 2 IgG Ab, Serum [...] ?? Testing was performed using the EUROIMMUN Afzj-OVJG-IdC-2 ALISTAIR (IgG), which has received Emergency Use Authori zation (EUA) by the U.S. Food and Drug Administration . ?? Fact sheets for this EUA assay can be fo und at the following links: ?? Factsheet for healthcare Providers: ?? https://www.fda.gov/media/319366/downloa d Factsheet for healthcare Patients: ?? https://www.fda.gov/media/648907/downloa d Specimen Anatomical Collection Method Collection Time Receive d Time (Source) Location / / Volume Laterality Blood (Blood, 05/03/2020 8:03 PM 05/04/20 20 7:27 Venous) CDT AM CDT Lulu Tae Wilkins APRN, C.N.P. LAB MICROBIOLOGY - BLOOD ORDERABLES Performing Organization Address City/State/ZIP Code Phon e Number [facility] [address] [place], [place] [address] [facility] [place] [address] Laboratory Medicine and Pathology [address] [place] SARS Coronavirus-2 RNA, V (05/03/2020 7:12 PM CDT) [facility] Method Time Signature SARS-CoV-2 Nasopharynx 05/04/2020 [...] is performed using the Aptima SARS-CoV-2 assay ([employer] which has received Emergency Use Authori zation (EUA) by the U.S. Food and Drug Administration. Fact sheets for this Emergency Use Autho rization (EUA) assay can be found at the following links: For Healthcare Providers: https://www.fd a.gov/media/284944/download For Patients: https://www.fda.gov/media/ 320096/download Specimen Anatomical Collection Method Collection Time Receive d Time (Source) Location / / Volume Laterality Varies 05/03/2020 7:12 PM 0 CDT 10:07 PM CDT Lulu Wilkins APRN C.NMauroPMauro LAB MICROBIOLOGY - GENER AL ORDERABLES Performing Organization Address City/State/ZIP Code Phon e Number [facility] - [address] [place], [place] [address] [facility] [place] [address] Laboratories[facility] 200 [facility] (ABNORMAL) Glucose, POCT (05/03/2020 5:55 PM [...] Provider LAB POCT ORDERABLES-MANUAL Performing Organization Address City/[facility]/ZIP Code Phon e Number POC [facility] [address] [place] [address] [facility] [place] [address] [place] POC [address] [place] [address] (ABNORMAL) Troponin T, 2H/6H, 5th Gen (05/03/2020 [...] 20 4:01 Venous) CDT PM CDT Narrative [facility] - [facility] - 05/03/2020 9:13 PM CDT Specimen Information: Specimen ID: [id number] Specimen Type: Blood Specimen Collection Start Date: 0 ??3:53 PM Specimen Received Date: 05/03/2020 ??4:01 PM Specimen ID: [id number] Specimen Type: Blood Specimen Collection Start Date: 0 ??8:03 PM Specimen Received Date: 05/03/2020 ??8:23 PM Brandon Ellsworth D.O. LAB BLOOD TROPONIN Performing Organization Address City/State/ZIP Code Phon e Number [facility] - [address] [place] [address] [place] [address] Laboratories[facility] [address] DX Chest AP or [...] D.O. LAB BLOOD ADD-ON Performing Organization Address City/[facility]/RUST Code Phon e Number [facility] - [address] [place], [place] [address] [facility] DTL [address] (ABNORMAL) NT-Pro B-Type Natriuretic Peptide (BNP) [...] D.O. LAB BLOOD ADD-ON Performing Organization Address City/State/RUST Code Phon e Number [facility] - [address] [place] [address] [facility] [place] [address] Laboratories[address] (ABNORMAL) Troponin T, Baseline, 5th gen [...] Organization Address City/State/ZIP Code Phon e Number [facility] - [address] [place], [place] [address] [facility] [place] [address] [facility] 200 [facility] (ABNORMAL) Basic Metabolic Panel (05/03/2020 1:44 [...] eGFR-Black/Afri 39 (L) >=60 05/03/2020 [facility] can Serbian mL/min/BSA 2:20 PM CDT Comment: ----ADDITIONAL INFORMATION---- Estimated GFR calculated using the 2009 CKD_EPI creatinine equation. eGFR Non-Black/ 33 (L) >=60 mL/min/BSA 05/03/2020 2:20 PM CDT ST[facility] Serbian Comment: ----ADDITIONAL INFORMATION---- Estimated GFR calculated [...] 05/03/20 20 2:03 Venous) CDT PM CDT Branodn Ellsworth D.O. LAB BLOOD ADD-ON Performing Organization Address City/[facility] Phon e Number [facility] - [address] [place], [place] [address] [place] [address] (ABNORMAL) CBC without Differential (05/03/2020 1:44 PM CDT) [facility] gist Method Time Signature Hemoglobin 10.0 (L) [...] D.O. LAB BLOOD ADD-ON Performing Organization Address City/[facility]/RUST Code Phon e Number [facility] - [address] ECG 12 Lead (05/03/2020 1:34 PM CDT) P athologist Signature Ventricular Rate 59 BPM MUSE ECG/Min AR Interval 182 ms MUSE QRSD Interval 102 ms MUSE QT Interval 494 ms MUSE QTC Interval 489 ms MUSE P [place] 60 degrees MUSE R [place] -21 degrees MUSE T Wave [place] 72 degrees MUSE Specimen Anatomical Collection Method [...] Given 05/04/2020 8:29 AM CDT 60 mg lyxsym-qjcdlugd-svfpqhe Given 05/04/2020 4:50 PM CDT 1 capsule 6,000-19,000-30,[address] capsule 1 capsule (CREON) 1 capsule, oral, As needed, snacks, Starting on Fri05/03/20 at 1729, Do NOT crush or chew. Capsule may be opened and the contents taken without crushing or chewing. Given 05/04/2020 12:37 PM CDT 1 capsule Given 05/04/2020 8:30 AM CDT 1 capsule jtcowt-jlwchmyh-ywwbceb Given 05/06/2020 12:00 PM CDT 2 capsules [...] Francisco Zuluaga R.N.) 0953 (Given - Provider: Loev Ayala R.N.) 75 mg, oral, Daily, First [...] 0517 (Given - Provider: Chelo Gautam RJustina, [facility])1421 (Given - Provider: Francisco Zuluaga [...] may be split on score if needed. tdiiql-idqqgbvb-euplnit 6,000-19,000-30, [address] capsule 2 [...] of breath, Starting on Fri05/03/20 at 1933 idofsb-amovebuz-vieggzi 6,000-19,000-30, [address] capsule 1 [...] as of this encounter Care Teams Core Cleaner Relationship Specialty Start Date End Date Chris Billings M.B.B.S., M.D. PCP - General Family Medicine 01/10/20 05/21/[address] [place] [address] [place] [address] documented as of this encounter
--- OUTSIDE RECORDS SUMMARY | 2022-05-28 06:47 | XMS_ITS | Encounter Summary ---
:1945 Author Organization [facility] Address [address] [place] [address] Care Team Providers Name Role Phone Shayla Alford D.O. Primary Care Provider [phone] Reason for Visit Reason Comments Care Coordination Intake Encounter Details Date Type Department Care Team Description 05/12/2020 Patient Outreach Department of Ronda Fernandez Family Medicine, A, R.N. (Intake) [facility], [address] [facility] in [facility] [address] [place] [address] [place], [place] (Work) [phone] Social History Tobacco Use [...] have completed or the highest Martin, MEd, GAMING SURVEILLANCE OBSERVER, CAYDEN) degree you have received? Sex Assigned [...] Use: Currently using the following community services: [place] services. Currently using the following devices/equipment: glucometer [...] our care team phone number and the [facility] separator operator shellfish meats phone number for off-hour contact with the physician typewriter ribbon winder). The patient was encouraged to report any [...] patient was encouraged to contact the RN Director Of Distance Learning or patient account services with any questions regarding the service. documented in this encounter Plan of Treatment Not on filedocumented as of this encounter Visit Diagnoses Not on filedocumented in this encounter Additional Health Concerns Assessment Noted Time PHQ-9 Depression Total Score: 18 04/28/2018 11:27 AM C DT documented as of this encounter Care Teams Quality Assurance Coordinator Relationship Specialty Start Date End Date Shayla Alford D.O. PCP - General Internal Medicine 05/22/202199 [address] [address] documented as of this encounter
--- OUTSIDE RECORDS SUMMARY | 2022-05-28 06:47 | XMS_ITS | Encounter Summary ---
:1945 Author Organization [facility] Address [address] [place] [address] Care Team Providers Name Role Phone Shayla Alford D.O. Primary Care Provider [phone] Reason for Visit Reason Comments Pre-visit Testing Orders Encounter Details Date Type Department Care Team Description 05/17/2020 Clinical Department of Cristina Pre-visit Test ing Communication Cardiovascular Manuel Barber, Orders Medicine in [place], [place] [address] [facility] [address] [place] [address] [phone] Social History Tobacco Use Types Packs/Day Years [...] do you attend bahai or Never 2021 sikhism services? Do you [...] have completed or the highest Martin, MEd, MACHINING ENGINEER, CAYDEN) degree you have received? Sex [...] This patient is being referred from the [facility] and was recently hospitalized last week. [...] documented as of this encounter Care Teams Tower Air Traffic Control Specialist Relationship Specialty Start Date End Date Shayla Alford D.O. PCP - General Internal Medicine 05/22/200 [address] [address] documented as of this encounter
--- OUTSIDE RECORDS SUMMARY | 2022-05-28 06:47 | XMS_ITS | Encounter Summary ---
:1945 Author Organization [facility] Address [address] [place] [address] Care Team Providers Name Role Phone Chris Billings M.D. Primary Care Provider [phone] Reason for Visit Reason Comments Post Hospital Follow-up Encounter Details Date Type Department Care Team Description 05/05/2020 Clinical Communication Department of [facility] MedicineRusty M.D. Follow-up [facility], [address] in [place], [place] [address] [address] [place], [place] [phone] [address] (Work) [phone] Social History Tobacco Use Types Packs/Day Years [...] you attend latter day or Never 2021 sikh services? Do you [...] completed or the highest Martin, MEd, GAS PROCESSING PLANT OPERATOR, CAYDEN) degree you have received? Sex Assigned at Date Recorded Male 05/21/2018 2:34 PM CDT documented as of this encounter Miscellaneous Notes Telephone Encounter - Sruthi Decker R.N. - 05/08/2020 8:10 AM CDT Call completed by Adult Medical care Coordination Telephone Encounter - Gloria Adams - 05/05/2020 1:50 PM CDT Hospital: [facility] Diagnosis: heart failure Discharge date: 05/07 When [...] documented as of this encounter Care Teams Press Tender Long Goods Relationship Specialty Start Date End Date Chris Billings M.B.B.S., M.D. PCP - General Family Medicine 01/10/20 05/21/[address] [place] [address] Teresa SunolKOBI sears [address] documented as of this encounter
--- OUTSIDE RECORDS SUMMARY | 2022-05-28 06:47 | XMS_ITS | Encounter Summary ---
:1945 Author Organization [facility] Address [address] [place] [address] Care Team Providers Name Role Phone Chris Billings M.D. Primary Care Provider [phone] Encounter Details Date Type Department Care Team Description 05/15/2020 Episode Changes Department of [facility] Ronda Fernandez, Medicine, [facility], R.N. in [place], [place] [address] [facility] [address] [place] [address] [phone] Social History Tobacco Use Types Packs/Day Years [...] you attend latter day or Never 2021 yarsanism services? Do you [...] completed or the highest Martin, MEd, WEIGHT YARDAGE CHECKER, CAYDEN) degree you have received? Sex Assigned at Date Recorded Male 05/21/2018 2:34 PM CDT documented as of this encounter Plan of Treatment Not on filedocumented as of this encounter Visit Diagnoses Not on filedocumented in this encounter Additional Health Concerns Assessment Noted Time PHQ-9 Depression Total Score: 18 04/28/2018 11:27 AM C DT documented as of this encounter Care Teams Doctor Assistant Relationship Specialty Start Date End Date Chris Billings M.B.BMauroSMauro, M.Coleman. PCP - General Family Medicine 01/10/20 05/21/[address] [place] [address] [place] [address] documented as of this encounter
--- OUTSIDE RECORDS SUMMARY | 2022-05-28 06:48 | XMS_ITS | Encounter Summary ---
:1945 Author Organization [facility] Address [address] [place] [address] Care Team Providers Name Role Phone Chris Billings M.D. Primary Care Provider [phone] Encounter Details Date Type Department Care Team Description 04/12/2020 Documentation Division of Gastroenterology Ran Vilchis in [facility] [address] [facility] [address] [place] [phone] Social History Tobacco Use Types Packs/Day Years [...] do you attend adventism or Never 2021 sabianism services? Do you [...] have completed or the highest Martin, MEd, ACCESS RN, CAYDEN) degree you have received? Sex Assigned at Date Recorded Male 05/21/2018 2:34 PM CDT documented as of this encounter Plan of Treatment Not on filedocumented as of this encounter Visit Diagnoses Not on filedocumented in this encounter Additional Health Concerns Assessment Noted Time PHQ-9 Depression Total Score: 18 04/28/2018 11:27 AM C DT documented as of this encounter Care Teams Dye House Worker Relationship Specialty Start Date End Date Chris Billings M.B.B.S., M.D. PCP - General Family Medicine 01/10/20 05/21/[address] [place] [phone] documented as of this encounter
--- OUTSIDE RECORDS SUMMARY | 2022-05-28 06:48 | XMS_ITS | Encounter Summary ---
:1945 Author Organization [facility] Address [address] [place] [address] Care Team Providers Name Role Phone Chris Billings M.D. Primary Care Provider [phone] Encounter Details Date Type Department Care Team Description 04/13/2020 Documentation Division of Gastroenterology Ran Vilchis in [facility] [address] [facility] [address] [place] [phone] Social History Tobacco Use Types Packs/Day Years [...] do you attend worship or Never 2021 synagogue services? Do you [...] have completed or the highest Martin, MEd, RETIREMENT VILLAGE MANAGER, CAYDEN) degree you have received? Sex Assigned at Date Recorded Male 05/21/2018 2:34 PM CDT documented as of this encounter Plan of Treatment Not on filedocumented as of this encounter Visit Diagnoses Not on filedocumented in this encounter Additional Health Concerns Assessment Noted Time PHQ-9 Depression Total Score: 18 04/28/2018 11:27 AM C DT documented as of this encounter Care Teams Petrol Tanker Driver Relationship Specialty Start Date End Date Chris Billings M.B.B.S., M.D. PCP - General Family Medicine 01/10/20 05/21/[address] [place] [phone] documented as of this encounter
--- OUTSIDE RECORDS SUMMARY | 2022-05-28 06:48 | XMS_ITS | Encounter Summary ---
:1945 Author Organization [facility] Address [address] [place] [address] Care Team Providers Name Role Phone Chris Billings M.D. Primary Care Provider [phone] Encounter Details Date Type Department Care Team Description 03/30/2020 Clinical Communication Department of Chris Terry [facility], Lorri Tavarez, Clinic, in [place] 300 [facility] 300 [facility] SibleyKOBI [place]YSON [phone] Social History Tobacco Use Types Packs/Day Years [...] do you attend cheondoism or Never 2021 zoroastrian services? Do you [...] completed or the highest Martin, MEd, RN DIALYSIS, CAYDEN) degree you have received? Sex Assigned [...] documented as of this encounter Care Teams Botanical Technical Officer Relationship Specialty Start Date End Date Chris Billings M.B.B.S., M.D. PCP - General Family Medicine 01/10/20 05/21/[address] [place] [address] [place] Marc [phone] documented as of this encounter
--- OUTSIDE RECORDS SUMMARY | 2022-05-28 06:48 | XMS_ITS | Encounter Summary ---
:1945 Author Organization [facility] Address [address] [place] [address] Care Team Providers Name Role Phone Chris Billings M.D. Primary Care Provider [phone] Reason for Referral Outpatient (Routine) - Closed Specialty Diagnoses / Procedures Referred By Contact Refer red To Contact Diagnoses Bradycardia Shlomo Ojeda APRN, [facility] [place] Procedures ECG Heart rhythm monitor (Holter) C.N.P. [address] [place] [phone] Referral ID Status Reason Start Date Expiration Date Visits Requ ested Visits Authorized [id number] Closed 05/01/2020 05/01/2021 1 1 Reason for Visit Outpatient (Routine) - Closed Specialty Diagnoses / Procedures Referred By Contact Refer red To Contact Diagnoses Bradycardia Shlomo Ojeda APRN, [facility] [place] Procedures ECG Heart rhythm monitor (Holter) C.N.P. [address] [place] [phone] Referral ID Status Reason Start Date Expiration Date Visits Requ ested Visits Authorized [id number] Closed 05/01/2020 05/01/2021 1 1 Encounter Details Date Type Department Care Team Description 05/01/2020 Hospital Encounter Department of Shlomo Ojeda Brady cardia Cardiovascular Diseases in ELECTRONIC NEWS GATHERING CAMERA PERSON, C.N.P. [place], [place] [address] [place]EL [phone] Social History Tobacco Use Types Packs/Day Years [...] do you attend uatsdin or Never 2021 gnosticist services? Do you [...] have completed or the highest Martin, MEd, ELECTROMEDICAL EQUIPMENT TECHNICIAN, CAYDEN) degree you have received? Sex [...] SYRINGE-NEEDLE,INSULIN,0 0 .5 ML (INSULIN SYRINGE MISC) furosemide (LASIX) 20 mg Take 1 tablet (20 mg 30 tablet 2 0 05/01/2020 05/06/2020 tablet total) by mouth daily with breakfast. insulin aspart U-100 Inject 20-25 Units 0 05/06/2020 (NovoLOG FlexPen) 100 under the skin as unit/mL injection needed. With meals insulin glargine Inject 20 Units 0 01/31/201504/2020 (LANTUS) 100 unit/mL under the skin at injection bedtime. isosorbide mononitrate Take 1 tablet (60 mg 0 11/201902/22/2021 (IMDUR) 60 mg 24 hr total) by mouth tabletIndications: daily. 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 As directed per capsule losartan (for_COZAAR) Take 50 mg by mouth 0 10/1305/06/2020 100 mg tablet daily. metoprolol succinate Take 1 tablet (50 [...] puffs Moderate (HCC) twice daily if tolerated. gemfibroziL (LOPID) 600 Take 1 tablet by 0 200811/06/2021 mg tablet mouth. insulin NPH and regular LW Addl 0 11/15/2008 0 05/04/2020 human (HumuLIN 70/30 Instr:Indicated for: U-100 KwikPen) 100 Diabetes unit/mL (70-30) injection juxome-relisdrq-dshxjco Take 1 capsule by 0 10/12/2020 (CREON) mouth as needed for 6,000-19,000-30,[address] capsule lisinopriL Take 1 tablet by 0 11/15/2008 11/06/19 22 (PRINIVIL,ZESTRIL) 10 mg mouth daily. tablet metFORMIN (GLUMETZA) Take 1 tablet (1,000 180 [...] PM Bradycardia Re sults for this CLINIC COMMUNICATIONS EQUIPMENT OPERATOR CDT procedure are in the results section. documented in this encounter Results HOLTER MONITOR - IN CLINIC COMMUNICATIONS EQUIPMENT OPERATOR (05/01/2020 4:03 PM CDT) [facility] [employer] Method Time Signature AF Count 0 count HOLTER SENTINEL Recording Date HOLTER SENTINEL VE Percent 33 percent HOLTER Beats SENTINEL Max Heart Rate 94 bpm HOLTER SENTINEL Max Heart Rate [id number] HOLTER Time SENTINEL Tachycardia 0 count HOLTER Runs SENTINEL VT Runs 21 count HOLTER SENTINEL VE Max Per [id number] HOLTER Hour Time SENTINEL SVE Max Per 19 count HOLTER Hour SENTINEL VT Longest 4 beats HOLTER SENTINEL SVE Percent 0 percent HOLTER Beats SENTINEL VT Max Rate [id number] HOLTER Time SENTINEL Bradycardia 0 count HOLTER Runs SENTINEL Min Heart Rate 60 bpm HOLTER SENTINEL Holter Pauses 0 count HOLTER SENTINEL SVT Runs 0 count HOLTER SENTINEL VT Longest 19017942190676 HOLTER Time SENTINEL Min Heart Rate 19984327797606 HOLTER Time SENTINEL VE Total Beats 33,762 count HOLTER SENTINEL SVE Total 180 count HOLTER Beats SENTINEL Analysis Date 20,200,805 HOLTER SENTINEL VE Max Per 1,903 count HOLTER Hour SENTINEL Mean Heart 70 bpm HOLTER Rate SENTINEL VT Max Rate 134 bpm HOLTER SENTINEL SVE Max Per [id number] HOLTER Hour Time SENTINEL Specimen (Source) Anatomical [...] documented as of this encounter Care Teams Toll Lineman Relationship Specialty Start Date End Date Chris Billings M.B.B.S., M.D. PCP - General Family Medicine 01/10/20 05/21/[address] [place] [address] [place] DunnKOBI sears [phone] documented as of this encounter
--- OUTSIDE RECORDS SUMMARY | 2022-05-28 06:48 | XMS_ITS | Encounter Summary ---
:1945 Author Organization [facility] Address [address] [place] [address] Care Team Providers Name Role Phone Chris Billings M.D. Primary Care Provider [phone] Reason for Visit Reason Comments Pancreas Vitamin D & Hgb A1c results Encounter Details Date Type Department Care Team Description 03/27/2020 Clinical Division of Parminder, Pancreas (Vitnaomy in Communication Gastroenterology in [place], D & Hgb A1c [place], [place] M.D. results) [address] [facility] [address] [place] [address] [place] [address] Social History Tobacco Use Types Packs/Day Years [...] do you attend methodist or Never 2021 yazdanism services? Do you [...] completed or the highest Martin, MEd, DIRECTOR RECORDS MANAGEMENT, CAYDEN) degree you have received? Sex [...] documented as of this encounter Care Teams Pretzel Twisting Machine Operator Relationship Specialty Start Date End Date Chris Billings M.B.B.S., M.D. PCP - General Family Medicine 01/10/20 05/21/[address] [place] [address] [place] [phone] documented as of this encounter
--- OUTSIDE RECORDS SUMMARY | 2022-05-28 06:48 | XMS_ITS | Encounter Summary ---
:1945 Author Organization [facility] Address [address] [place] [address] Care Team Providers Name Role Phone Chris Billings M.D. Primary Care Provider [phone] Reason for Visit Reason Comments COVID Nurse Line Encounter Details Date Type Department Care Team Description 04/28/2020 Nurse Triage Department of [facility] Johnson, DHRUV Santana Nurse Line Medicine, [facility] in [place], [place] [address] [facility] [address] [place] [address] [phone] Social History Tobacco Use Types Packs/Day Years [...] do you attend muslim or Never 2021 orthodoxy services? Do you [...] have completed or the highest Martin, MEd, INTERFACE DESIGNER, CAYDEN) degree you have received? Sex Assigned at Date Recorded Male 05/21/2018 2:34 PM CDT documented as of this encounter Plan of Treatment Not on filedocumented as of this encounter Visit Diagnoses Not on filedocumented in this encounter Additional Health Concerns Assessment Noted Time PHQ-9 Depression Total Score: 18 04/28/2018 11:27 AM C DT documented as of this encounter Care Teams Command Center Officer Relationship Specialty Start Date End Date Chris Billings M.B.B.S., M.D. PCP - General Family Medicine 01/10/20 05/21/[address] [place] [address] [place] [phone] documented as of this encounter
--- OUTSIDE RECORDS SUMMARY | 2022-05-28 06:48 | XMS_ITS | Encounter Summary ---
:1945 Author Organization [facility] Address [address] [place] [address] Care Team Providers Name Role Phone Chris Billings M.D. 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 [facility] [place] [facility] Procedures Echo Transthoracic (TTE) [address] [place] [address] Referral ID Status Reason Start Date Expiration Date Visits Requ ested Visits Authorized [id number] Closed 01/20/2020 01/19/2021 1 1 Encounter Details Date Type Department Care Team Description 04/17/2020 Hospital Department of Arsenio Bañuelos Heart Encounter Cardiovascular Koko Champagne M.D. Disease [place] Diseases in [place], [facility] Coronary Artery With [place], [place] Other Forms Angina [address] [address] Pectoris (Angina KOBI PATEL [phone] Equivalent) (HC C) [address] (Work) [phone] Social History Tobacco Use Types Packs/Day Years [...] do you attend denominational or Never 2021 cheondoism services? Do you [...] completed or the highest Martin, MEd, RN DIABETES, CAYDEN) degree you have received? Sex Assigned [...] SYRINGE-NEEDLE,INSULIN,0 0 .5 ML (INSULIN SYRINGE MISC) insulin aspart U-100 Inject 20-25 Units 0 05/06/2020 (NovoLOG FlexPen) 100 under the skin as unit/mL injection needed. With meals insulin glargine Inject 20 Units 0 01/31/201504/2020 (LANTUS) 100 unit/mL under the skin at injection bedtime. arxsos-ydvmajdu-vtdgege 2 capsules 3 (three) 0 10/12/2020 (CREON) times a day with 6,000-19,000-30,000 Unit meals. As directed per capsule losartan (for_COZAAR) Take 50 mg by mouth 0 10/1305/06/2020 100 mg tablet daily. albuterol (for_ACCUNEB) Take 2.5 mg by 0 [...] by mouth tabletIndications: daily. 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 Equivalent) (HCC) documented in this encounter Results (TTE) 2D ECHO DOPPLER COLOR (04/17/2020 10:06 AM CDT) [facility] Method Time Signature Ejection Fraction 42 [...] effusion. For the complete report, see the [facility] Documents. Narrative 04/17/2020 1:23 PM CDT For the complete report, see the [facility] Documents. Final Impressions 1. Mildly enlarged left ventricular jsoe f taye size. 2. Calculated 2-D linear [...] For the complete report, see the [facility] Documents. Final Impressions 1. Mildly enlarged left [...] encounter Visit Diagnoses Diagnosis Atherosclerotic Heart Disease [place] Cor onary Artery With Other Forms Angina Pectoris (Angina Equivalent) (HCC) documented in this encounter Additional Health Concerns Assessment Noted Time PHQ-9 Depression Total Score: 18 04/28/2018 11:27 AM C DT documented as of this encounter Care Teams Eligibility Manager Relationship Specialty Start Date End Date Chris Billings M.B.B.S., M.D. PCP - General Family Medicine 01/10/20 05/21/[address] [place] [address] [place] [address] documented as of this encounter
--- OUTSIDE RECORDS SUMMARY | 2022-05-28 06:48 | XMS_ITS | Encounter Summary ---
:1945 Author Organization [facility] Address [address] [place] [address] Care Team Providers Name Role Phone Chris Billings M.D. Primary Care Provider [phone] Encounter Details Date Type Department Care Team Description 04/04/2020 Orders Only Division of Ran Eduardo Clinical Research Gastroenterology in [address] [facility] W Exam (Primary Dx) [place], [place] [address] [facility] [address] [place] [address] [phone] Social History Tobacco Use Types Packs/Day Years [...] completed or the highest Martin, MEd, COMMUNITY ADMINISTRATOR, CAYDEN) degree you have received? Sex [...] documented as of this encounter Care Teams Sketch Maker Relationship Specialty Start Date End Date Chris Billings M.B.BDenise, MDahlia. PCP - General Family Medicine 01/10/20 05/21/[address] [place] [address] [place] [address] documented as of this encounter
--- OUTSIDE RECORDS SUMMARY | 2022-05-28 06:48 | XMS_ITS | Encounter Summary ---
:1945 Author Organization [facility] Address [address] [place] [address] Care Team Providers Name Role Phone Chris Billings M.D. Primary Care Provider +1 [phone] Reason for Visit Reason Onset Date Comments Outpatient COVID-19 Testing 03/29/2020 Encounter Details Date Type Department Care Team Description 03/29/2020 External Outreach Department of Chad Pettit Infect rozina Upper Internal Medicine in J, D.O. Respiratory (Primary [place], [place] [address]) [address] [facility] [place] [phone] Social History Tobacco Use Types Packs/Day Years [...] do you attend uatsdin or Never 2021 baptist services? Do you [...] completed or the highest Martin, MEd, BELT AND LINK ASSEMBLY SUPERVISOR, CAYDEN) degree you have received? Sex [...] RNA, V Symptomatic (03/29/2020 12:07 PM CDT) [facility] Method Time Signature SARS-CoV-2 Swab, 03/30/2020 MKTO [...] is performed using the Aptima SARS-CoV-2 assay ([employer] which has received Emergency Use Authori zation (EUA) by the U.S. Food and Drug Administration. Fact sheets for this Emergency Use Autho rization (EUA) assay can be found at the following links: For Healthcare Providers: https://www.Dr. Tariff a.gov/media/084476/download For Patients: https://www.fda.gov/media/ 144943/download Specimen Anatomical Collection Method Collection Time Receive d Time (Source) Location / / Volume Laterality Varies 03/29/2020 12:07 03/29/2020 8:01 (Nasopharynx) PM CDT PM CDT Chad Pettit D.O. LAB MICROBIOLOGY - GENERAL O RDERABLES Performing Organization Address City/[facility] Phon e Number [facility]- [address] [place] [address] [facility] [place] [address] System [address] documented in this encounter Visit Diagnoses Diagnosis Infection Upper Respiratory - Primary documented in this encounter Additional Health Concerns Infection Onset Date Last Indicated Resolved Time COVID19 Pending 03/29/2020 03/29/2020 03/30/2020 4:56 AM CDT Assessment Noted Time PHQ-9 Depression Total Score: 18 04/28/2018 11:27 AM C DT documented as of this encounter Care Teams Envelope Maker Relationship Specialty Start Date End Date Chris Billings M.B.B.S., Rhoda. PCP - General Family Medicine 01/10/20 05/21/[address] [place] [address] [place] [address] documented as of this encounter
--- OUTSIDE RECORDS SUMMARY | 2022-05-28 06:48 | XMS_ITS | Encounter Summary ---
:1945 Author Organization [facility] Address [address] [place] [address] Care Team Providers Name Role Phone Chris Billings M.D. Primary Care Provider +1 [phone] Encounter Details Date Type Department Care Team Description 05/02/2020 Clinical Communication Department of Internal Shlomo Ojeda, Medicine in [facility], [facility] [address] [place] [phone] Social History Tobacco Use Types Packs/Day Years [...] do you attend baptism or Never 2021 methodist services? Do you [...] have completed or the highest Martin, MEd, APPLICATION INTERNSHIP, CAYDEN) degree you have received? Sex Assigned at Date Recorded Male 05/21/2018 2:34 PM CDT documented as of this encounter Miscellaneous Notes Telephone Encounter - Kira Sorenson M - 05/02/2020 1:50 PM CDT ([facility] and [facility] locations only: If the [...] no Route reply to: Scheduling Contact Number: [phone] documented in this encounter Plan of Treatment Not on filedocumented as of this encounter Visit Diagnoses Not on filedocumented in this encounter Additional Health Concerns Assessment Noted Time PHQ-9 Depression Total Score: 18 04/28/2018 11:27 AM C DT documented as of this encounter Care Teams Wood Model Maker Relationship Specialty Start Date End Date Chris Billings M.B.B.S., M.D. PCP - General Family Medicine 01/10/20 05/21/[address] [place] [address] [place] [phone] documented as of this encounter
--- OUTSIDE RECORDS SUMMARY | 2022-05-28 06:48 | XMS_ITS | Encounter Summary ---
:1945 Author Organization [facility] Address [address] [place] [address] Care Team Providers Name Role Phone Chris Billings M.D. Primary Care Provider +1 [phone] Encounter Details Date Type Department Care Team Description 03/13/2020 Hospital Encounter Department of Parminder, Pancreat itis Chronic Laboratory Medicine Rhoda Stein (HCC) and Pathology, [address] [place] [address], in [place], [place] [phone] [place] [address] [place], [place] (Work) [phone] Social History Tobacco Use Types Packs/Day Years [...] do you attend scientology or Never 2021 taoist services? Do you [...] have completed or the highest Martin, MEd, PROFESSOR OF ENGINEERING, CAYDEN) degree you have received? Sex Assigned [...] unit/mL under the skin at injection bedtime. losartan (for_COZAAR) Take 50 mg by mouth [...] once Atherosclerotic Heart for 1 dose. 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 metFORMIN (GLUMETZA) Take 1 tablet (1,000 180 [...] and its performa nce characteristics determined by [facility] in a manner consistent with [...] Address City/State/ZIP Code Phon e Number [facility] [address] [place], [place] [address] SUPPORT [facility] [place] [address] Laboratory Medicine and Pathology [address] [...] Address City/State/ZIP Code Phon e Number [facility] - [address] [place], [place] [address] [facility] [place] [address] [address] [address] documented in this encounter Visit Diagnoses Diagnosis Pancreatitis Chronic (HCC) documented in this encounter Additional Health Concerns Assessment Noted Time PHQ-9 Depression Total Score: 18 04/28/2018 11:27 AM C DT documented as of this encounter Care Teams Dispatcher Ship Pilot Relationship Specialty Start Date End Date Chris Billings M.B.B.S., M.D. PCP - General Family Medicine 01/10/20 05/21/[address] [place] [phone] documented as of this encounter
--- OUTSIDE RECORDS SUMMARY | 2022-05-28 06:48 | XMS_ITS | Encounter Summary ---
:1945 Author Organization [facility] Address [address] [place] [address] Care Team Providers Name Role Phone Chris Billings M.D. Primary Care Provider +1 [phone] Encounter Details Date Type Department Care Team Description 03/29/2020 Clinical Communication Department of Chris Terry [facility], Lorri Tavarez, Clinic, in [place] 300 [facility] 300 [facility] [place] [phone] Social History Tobacco Use Types Packs/Day Years [...] you attend oriental orthodox or Never 2021 yazdanism services? Do [...] have completed or the highest Martin, MEd, AIRCRAFT ELECTRICAL SYSTEMS SPECIALIST, CAYDEN) degree you have received? Sex [...] phone call with Dr. Billings. Current : [phone] Can Nursing/Provider leave a detailed message: Yes [...] as of this encounter Care Teams Dental Detail Representative Relationship Specialty Start Date End Date Chris Billings M.B.B.S., M.D. PCP - General Family Medicine 01/10/20 05/21/[address] [place] [phone] documented as of this encounter
--- OUTSIDE RECORDS SUMMARY | 2022-05-28 06:48 | XMS_ITS | Encounter Summary ---
:1945 Author Organization [facility] Address [address] [place] [address] Care Team Providers Name Role Phone Chris Billings M.D. Primary Care Provider +1 [phone] Reason for Visit Reason Comments COVID Nurse Line Encounter Details Date Type Department Care Team Description 03/29/2020 Nurse Triage Department of [facility] Kanwal Brock COVID Nurse Line Medicine, [facility], [facility] [address] [phone] Social History Tobacco Use [...] do you attend anabaptist or Never 2021 jehovah's witness services? Do [...] completed or the highest Martin, MEd, GLASS RIBBON MACHINE OPERATOR, CAYDEN) degree you have received? [...] to be swabbed for COVID-19, sent to [place] located [address] [facility]. Take [address] to back of the [...] if re-testing is necessary. Education Resources: https://www .cdc.gov/coronavirus/2019-ncov/sr-aic-fch-sick/cgcyx-gqno-vcnf.html Education: patient/caregiver Patient/caregiver able to teach back Patient agreeable to plan of care: Yes The following references were used: [facility] novel coronavirus (COVID- 19) resources Nursing judgement documented in this encounter Plan of Treatment Not on filedocumented as of this encounter Visit Diagnoses Not on filedocumented in this encounter Additional Health Concerns Assessment Noted Time PHQ-9 Depression Total Score: 18 04/28/2018 11:27 AM C DT documented as of this encounter Care Teams Sign Language Instructor Relationship Specialty Start Date End Date Chris Billings M.B.BRhoda Walker. PCP - General Family Medicine 01/10/20 05/21/[address] [place] [phone] documented as of this encounter
--- OUTSIDE RECORDS SUMMARY | 2022-05-28 06:48 | XMS_ITS | Encounter Summary ---
:1945 Author Organization [facility] Address [address] [place] [address] Care Team Providers Name Role Phone Chris Billings M.D. Primary Care Provider +1 [phone] Reason for Referral Outpatient (Routine) - Closed Specialty Diagnoses / Procedures Referred By Contact Refer red To Contact Endocrinology Carlos Kendall M.D.[facility] Ph.D. [address] [place] [phone] Referral ID Status Reason Start Date Expiration Date Visits Requ ested Visits Authorized [id number] Closed 03/17/2020 03/17/2021 1 1 Reason for Visit Outpatient (Routine) - Closed Specialty Diagnoses / Procedures Referred By Contact Madelaine castillo To Contact Endocrinology Diagnoses Diabetes Mellitus Type 2 With Diabetic Neuropathy (HCC) Diarrhea Fatigue Emil Zurita M.D. [facility] [address] [place] [phone] Referral ID Status Reason Start Date Expiration Date Visits Requ ested Visits Authorized [id number] Closed 02/17/2020 02/16/2021 1 1 Encounter Details Date Type Department Care Team Description 03/17/2020 Comprehensive Visit Division of Carlos Kendall Diabetes Mellitus Type 2 With Diabetic Neuropathy (HCC); Endocrinology in [place]; [facility] Ph.D[facility] Fatigue [address] [place] [phone] Social History Tobacco Use Types Packs/Day Years [...] do you attend bahai or Never 2021 protestant services? Do you [...] have completed or the highest Martin, MEd, LARRIMAN HELPER, CAYDEN) degree you have received? Sex [...] too much. He has not seen an machine operator for a while but the his machine operator is living very close to his place [...] Organization Address City/State/ZIP Code Phon e Number [facility] - [address] [place], [place] [address] [facility] [place] [address] Laboratories-[facility] [address] C-Peptide (04/12/2020 8:14 AM CDT) athologist Signature C-Peptide, S 3.1 1.1 - 4.4 04/13/2020 [facility] ng/mL 8:56 AM CDT Specimen Anatomical Collection Method Collection Time Receive d Time (Source) Location / / Volume Laterality Blood (Blood, 04/12/2020 8:14 AM 04/13/20 20 8:20 Venous) CDT AM CDT Carlos Kendall M.D., Ph.D. LAB BLOOD ADD-ON Performing Organization Address City/State/ZIP Code Phon e Number [facility] [address] [place], [place] [address] [place] [address] CENTER [facility] [place] [address] Laboratory Medicine and Pathology [address] [...] [facility]- [address] [place] [address] [place] [address] System in [place] [address] Sodium (04/12/2020 8:14 [...] Number [facility]- [address] [place] [address] [facility] [address] System in [place] [address] [facility] (ABNORMAL) CBC without Differential (04/12/2020 8:14 AM [...] [facility]- [address] [place] [address] [place] [address] System in [place] [address] [facility] (ABNORMAL) Lipid Panel (04/12/2020 8:14 AM CDT) [...] Number [facility]- [address] [address] [place] [address] System in [place] [address] ALT (Alanine Aminotransferase) (04/12/2020 8:14 AM CDT) [facility] gist Method Time Signature Alanine 16 7 [...] [facility]- [address] [place] [address] [place] [address] System in [place] [address] AST (Aspartate Aminotransferase) [...] Ph.D. LAB BLOOD ADD-ON Performing Organization Address City/State/[facility] Code Phon e Number [facility]- [address] [place] [address] [place] [address] System in [place] [facility] (ABNORMAL) Creatinine with Estimated GFR (04/12/2020 8:14 AM CDT) Analysis Performed At Patho logist Time Signature Creatinine 1.42 (H) 0.74 - 04/12/2020 [facility] 1.35 mg/dL 9:08 AM CDT eGFR-Black/Afri 55 (L) >=60 04/12/2020 [facility] can [place] mL/min/BSA 9:08 AM CDT Comment: ----ADDITIONAL INFORMATION---- Estimated GFR calculated using the 2009 CKD_EPI creatinine equation. eGFR Non-Black/ 48 (L) >=60 mL/min/BSA 04/12/2020 9:08 AM CDT [facility] [place] Comment: ----ADDITIONAL INFORMATION---- Estimated GFR calculated using the 2009 CKD_EPI creatinine equation. Specimen Anatomical Collection Method Collection Time Receive d Time (Source) Location / / Volume Laterality Blood (Blood, 04/12/2020 8:14 AM 04/12/20 8:31 Venous) CDT AM CDT Carlos Kendall M.D., Ph.D. LAB BLOOD ADD-ON Performing Organization Address City/State/ZIP Code Phon e Number [facility]- [address] [place] [address] [place] [address] System in [place] [address] (ABNORMAL) Hemoglobin A1c [...] Ph.D. 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 PCP - General Family Medicine 01/10/20 05/21/[address] [place] [address] [place] [phone] documented as of this encounter
--- OUTSIDE RECORDS SUMMARY | 2022-05-28 06:48 | XMS_ITS | Encounter Summary ---
:1945 Author Organization [facility] Address [address] [place] [address] Care Team Providers Name Role Phone Chris Billings M.D. Primary Care Provider +1 [phone] Encounter Details Date Type Department Care Team Description 04/19/2020 Clinical Communication Department of Chris Terry [facility], Lorri Tavarez, Clinic, in [place] 300 [facility] 300 [facility] [place] [phone] Social History Tobacco Use Types Packs/Day Years [...] do you attend orthodoxy or Never 2021 cheondoism services? Do you [...] completed or the highest Martin, MEd, AIRCRAFT STRESS ANALYST, CAYDEN) degree you have received? Sex [...] often. Patient is requesting a referral to [facility] pharmacist in [place] to review medications and symptoms he is having. Patient is wanting urgent pharmacy consult in [place]. Please call patient to schedule once referral [...] call the patient back Telephone Encounter - Jacuqie Hamilton LMauroP.N. - 04/20/2020 8:32 AM CDT Voice mail left for patient to return call for more information concerningsymptoms Telephone Encounter - Awa Parham - 04/19/2020 4:57 PM CDT Reason for Communication: Patient is having issues with his medications. He feels over medicated. Current Phone Number: [phone] Can Nursing/Provider leave a detailed message: Did [...] as of this encounter Care Teams Film Recordist Relationship Specialty Start Date End Date Chris Billings M.B.B.S., M.D. PCP - General Family Medicine 01/10/20 05/21/[address] [place] [phone] documented as of this encounter
--- OUTSIDE RECORDS SUMMARY | 2022-05-28 06:48 | XMS_ITS | Encounter Summary ---
:1945 Author Organization [facility] Address 200 [place] [address] Care Team Providers Name Role Phone Chris Billings M.D. Primary Care Provider +1 [phone] Reason for Visit Reason Comments [facility] [place] 04/30/20 @ 0914 Encounter Details Date Type Department Care Team Description 05/02/2020 Clinical Department of Ronda Fernandez [facility] Communication Family Medicine, A, R.N. Follow-up ([facility], 200 [facility] 04/30/20 @ 0914) in [facility] [phone] [place], [place] (Work) [phone] Social History Tobacco Use [...] do you attend anabaptism or Never 2021 jain services? Do you [...] completed or the highest Martin, MEd, FIRE CAPTAIN, CAYDEN) degree you have received? Sex [...] to a telephonic visit by the RN Technical Document Writer in a few days. All questions answered. [...] purely exhausted, but I went to the bond manager yesterday. This morning, patient notices more edema [...] time. The patient mentions that since his [facility] PCP has left (or will be leaving soon), he plans to establish care in [place] internal medicine once new doctor starts in [...] documented as of this encounter Care Teams Forest Ecology Professor Relationship Specialty Start Date End Date Chris Billings M.B.B.S., M.D. PCP - General Family Medicine 01/10/20 05/21/[address] [place] [phone] documented as of this encounter
--- OUTSIDE RECORDS SUMMARY | 2022-05-28 06:48 | XMS_ITS | Encounter Summary ---
:1945 Author Organization [facility] Address [address] [place] [address] Care Team Providers Name Role Phone Chris Billings M.D. Primary Care Provider +1 [phone] Reason for Visit Reason Comments Follow-up Outpatient (Routine) - Closed Specialty Diagnoses / Procedures Referred By Contact Refer red To Contact Endocrinology Carlos Kendall M.D., [facility] Ph.D. 200 [place] [address] Referral ID Status Reason Start Date Expiration Date Visits Requ ested Visits Authorized [id number] Closed 03/17/2020 03/17/2021 1 1 Encounter Details Date Type Department Care Team Description 04/13/2020 Office Visit Division of Carlos Kendall [facility] Type Endocrinology in [place], (HCC) (Pr imary Dx) [place], [place] Pat[place], Ph.D. 200 [facility] 200 [place] [address] [place], [place] [phone] Social History Tobacco Use Types Packs/Day [...] have completed or the highest Martin, MEd, DICTAPHONE TRANSCRIBER, CAYDEN) degree you have received? Sex [...] strongly encouraged him to connect with the certified adapted physical educator if he has any doubt about adjusting insulin dose. In general I thought his glargine dose can be reduced to 20 or even below because his pre bedtime glucose is usually high the 200-50 region. He also gets hypoglycemia usually during this gynecology teacher time. He can reduce glargine dose to [...] the cost high glucose. He takes the 763621 units of Lantus in the night and [...] strongly encouraged him to connect with the certified adapted physical educator if he has any doubt about adjusting insulin dose. In general I thought his glargine dose can be reduced to 20 or even below because his pre bedtime glucose is usually high the 200-50 region. He also gets hypoglycemia usually during this gynecology teacher time. He can reduce glargine dose to [...] documented as of this encounter Care Teams Sling Operator Relationship Specialty Start Date End Date Chris Billings M.B.B.S., M.D. PCP - General Family Medicine 01/10/20 05/21/[address] [place] [address] [place] [phone] documented as of this encounter
--- OUTSIDE RECORDS SUMMARY | 2022-05-28 06:48 | XMS_ITS | Encounter Summary ---
:1945 Author Organization [facility] Address [address] [place] [address] Care Team Providers Name Role Phone Chris Billings M.D. Primary Care Provider [phone] Reason for Visit Reason Comments Medication Problem low energy Encounter Details Date Type Department Care Team Description 03/15/2020 Office Visit Department of [facility] Chris Billings etjeffry Mellitus Type 2 Without Complication (HCC) (Primary Dx); Medicine, Lorri Tavarez, Atheros clerotic [facility] [place] Coronary Artery Without Angina Pectoris; Clinic, in [place] Hypertension Essential Primary; [place] [address] [facility] [address] [facility] [place], [place] [phone] Social History Tobacco Use Types Packs/Day [...] do you attend mu-ism or Never 2021 orthodoxy services? Do you [...] completed or the highest Martin, MEd, ASSISTANT TO THE PRESIDENT, CAYDEN) degree you have received? Sex Assigned [...] Complication (HCC) #2 Atherosclerotic [facility] [place] Coronary Artery Without Angina Pectoris #3 Hypertension [...] minutes of this visit was spent in ajlm-vu-gvgy care, review of medications and counseling. documented [...] Phon e Number [facility] - [address] [place], [place] [address] [facility] [place] [address] Laboratories-[facility] [address] T4 (Thyroxine), Free (04/12/2020 8:14 AM CDT) athologist Signature T4 (Thyroxine), 1.1 0.9 - 1.7 04/12/2020 [place] Free, P ng/dL 9:43 AM CDT Comment: Biotin has been identified by the capri enriquez as a potential interfering substance. ??Higher concentr ations of biotin may be found in multivitamins, hair/nail supple ments, and workout supplements. ??If the result does not [facility] clinical observations, repeat testing after patient refrains fr om the use of supplements for at least 12 hours. Specimen Anatomical Collection Method Collection Time Receive d Time (Source) Location / / Volume Laterality Blood (Blood, 04/12/2020 8:14 AM 04/12/20 20 8:31 Venous) CDT AM CDT Chris Blackmon M.D. LAB BLOOD ADD-ON Performing Organization Address City/State/ZIP Code Phon e Number [facility]- [address] [place] [address] [place] [address] System in [place] [address] (ABNORMAL) S-TSH (Thyroid-Stimulating Hormone [...] supplements. ??If the result does not [facility] clinical observations, repeat testing after patient refrains fr om the use of supplements for at least 12 hours. Specimen Anatomical Collection Method Collection Time Receive d Time (Source) Location / / Volume Laterality Blood (Blood, 03/15/2020 3:02 PM 03/15/20 20 5:45 Venous) CDT PM CDT Chris Blackmon M.D. LAB BLOOD ADD-ON Performing Organization Address City/State/ZIP Code Phon e Number [facility]- [address] [place] [address] [place] [address] System in [place] [address] documented in this encounter Visit Diagnoses Diagnosis Diabetes Mellitus Type 2 Without Complic ation (HCC) - Primary Atherosclerotic [facility] [place] Coronary Artery Without Angina Pectoris Hypertension Essential Primary Fatigue documented in this encounter Additional Health Concerns Assessment Noted Time PHQ-9 Depression Total Score: 18 04/28/2018 11:27 AM C DT documented as of this encounter Care Teams E Tailer Relationship Specialty Start Date End Date WaribChris guerrero M.B.B.S., MDahlia. PCP - General Family Medicine 01/10/20 05/21/[address] [place] [address] [place], [place] [phone] documented as of this encounter
--- OUTSIDE RECORDS SUMMARY | 2022-05-28 06:48 | XMS_ITS | Encounter Summary ---
:1945 Author Organization [facility] Address [address] [place] [address] Care Team Providers Name Role Phone Chris Billings M.D. Primary Care Provider [phone] Reason for Referral Outpatient (Routine) - Closed Specialty Diagnoses / Procedures Referred By Contact Refer red To Contact Diagnoses Bradycardia Shlomo Ojeda APRN, [place] Procedures ECG Heart rhythm monitor (Holter) C.N.P. [address], [place] [address] Referral ID Status Reason Start Date Expiration Date Visits Requ ested Visits Authorized [id number] Closed 05/01/2020 05/01/2021 1 1 Reason for Visit Outpatient (Routine) - Closed Specialty Diagnoses / Procedures Referred By Contact Refer red To Contact Cardiovascular Disease Koko Bañuelos, [facility] M.D[address] [address] Referral ID Status Reason Start Date Expiration Date Visits Requ ested Visits Authorized [id number] Closed 01/20/2020 01/19/2021 1 1 Encounter Details Date Type Department Care Team Description 05/01/2020 Office Visit Department of Shlomo Ojeda On Chron ic 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) (Primary Dx); Cardiovascular Diseases C, 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, Athe rosclerotic Heart Disease [place] 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 Do you [...] have completed or the highest Martin, MEd, ENGINEERING MGR, CAYDEN) degree you have received? Sex [...] Since then, he saw primary care in [place] wanting to decrease his pill burden. He was taken off of his diltiazem and chlorthalidone on March 15, 2020. About two weeks ago developed some worsening shortness of breath and presented to the [place] emergency room and was subsequently admitted to [...] his daughter (a physician up in the [facility]). MEDICATIONS Current Outpatient Medications: ??? albuterol sulfate [...] by mouth daily., Disp: , Rfl: ??? wkilsj-ecorscqe-tymsinj (CREON) 6,000-19,000-30,[address] capsule, Take [...] Instr:Indicated for: Diabetes, Disp: , Rfl: ??? efoaoi-mdhmncii-svcmssw (CREON) 6,000-19,000-30,[address] capsule, 2 [...] (HCC) 10/16/2009 Pulmonary symptomatology, diagnosis at the [place] unclear, but probably some degree of COPD. [...] INSERTION INTRAOCULAR LENS Left 04/2008 At the [place] ??? LASER OF PROSTATE W/ GREEN LIGHT PVP 08/28/2016 Greenlight photoselective vaporization of the prostate and cystoscopy with bladder biopsy and fulguration of a 2cm area; 08/28/[address] Prasanna Bernal at the [facility]. ??? TONSILLECTOMY ??? VASECTOMY OBJECTIVE VITAL SIGNS [...] the chest April 28, 2020 ([facility] in [place]) INDICATION: Difficulty breathing. Shoulder pain TECHNIQUE: CT [...] thickening at the apices. Pleura and pericardium: Wnpwwnmm-xp-cbsvc bilateral pleural effusions, right mildly greater than [...] lymphoma, versus metastatic adenopathy, is recommended. [facility] April 30, 2020: Creatinine 1.72, [...] weighing himself daily. #2 Atherosclerotic Heart Disease [place] Coronary Artery [...] 3 Glomerular Filtration Rate 30 To 59 ([facility]) His renal function became elevated while in [...] planning on establishing primary care here in [place] since his primary care physician is no longer available in [place]. documented in this encounter Miscellaneous Notes Addendum [...] this 4) PANEL, S/P PM CDT Disease [place] Coronary pro cedure are in Artery With Other Forms the results Angina Pectoris (Angina sect ion. Equivalent) ([facility] ) Hypertension Essential Primary Chronic Kidney Disease Stage 3 Glomerular Filtration Rate 30 To 59 (HCC) BUN (BLOOD UREA Routine 05/01/2020 4:26 Atherosclerotic Heart Results for this NITROGEN), S/P PM CDT Disease [place] Coronary pr ocedure are in Artery With Other Forms the results Angina Pectoris (Angina sect ion. Equivalent) (HCC ) Hypertension Essential Primary Chronic Kidney Disease Stage 3 Glomerular Filtration Rate 30 To 59 (HCC) CREATININE WITH Routine 05/01/2020 4:26 Atherosclerotic Heart Results for this EGFR, S/P PM CDT Disease [place] Coronary proc edure are in Artery With [...] Code Phon e Number [facility]- [address] [place] [address] [place] [address] System in [place] [address] (ABNORMAL) Creatinine with Estimated GFR (05/09/2020 10:15 AM CDT) Analysis Performed At Patho logist Time Signature Creatinine 2.04 (H) 0.74 - 05/09/2020 [place] 1.35 mg/dL 11:03 AM CDT eGFR-Black/Afri 36 (L) >=60 05/09/2020 [place] can [place] mL/min/BSA 11:03 AM CDT Comment: ----ADDITIONAL INFORMATION---- Estimated GFR calculated using the 2009 CKD_EPI creatinine equation. eGFR Non-Black/ 31 (L) >=60 mL/min/BSA 05/09/2020 11:03 AM CDT [place] Comment: ----ADDITIONAL INFORMATION---- Estimated GFR calculated using the 2009 CKD_EPI creatinine equation. Specimen Anatomical Collection Method Collection Time Receive d Time (Source) Location / / Volume Laterality Blood (Blood, 05/09/2020 10:15 05/09/2020 Venous) AM CDT 10:17 AM CDT Shlomo Ojeda APRN, C.N.P. LAB BLOOD ADD-ON Performing Organization Address City/[facility] Code Phon e Number [facility]- [address] [place] [address], [place] [address] [place] [address] System in [place] [address] (ABNORMAL) BUN (Blood Urea Nitrogen) [...] C.N.P. LAB BLOOD ADD-ON Performing Organization Address City/[facility]/ZIP Code Phon e Number [facility]- [address] [place] [facility] [place] [address] [place] [address] System in [place] [address] Electrolyte (Chem 4) Panel (05/01/2020 [...] C.N.P. LAB BLOOD ADD-ON Performing Organization Address City/[facility]/ZIP Code Phon e Number [facility]- [address] [place] [address], [place] [address] [place] [address] System in [place] [address] (ABNORMAL) Creatinine with Estimated GFR (05/01/2020 4:26 PM CDT) Analysis Performed At [facility] Time Signature Creatinine 1.80 (H) 0.74 - 05/01/2020 [place] 1.35 mg/dL 4:49 PM CDT eGFR-Black/Afri 41 (L) >=60 05/01/2020 [place] can [place] mL/min/BSA 4:49 PM CDT Comment: ----ADDITIONAL INFORMATION---- Estimated GFR calculated using the 2009 CKD_EPI creatinine equation. eGFR Non-Black/ 36 (L) >=60 mL/min/BSA 05/01/2020 4:49 PM CDT [place] Comment: ----ADDITIONAL INFORMATION---- Estimated GFR calculated using the 2009 CKD_EPI creatinine equation. Specimen Anatomical Collection Method Collection Time Receive d Time (Source) Location / / Volume Laterality Blood (Blood, 05/01/2020 4:26 PM 05/01/20 4:30 Venous) CDT PM CDT Shlomo Ojeda APRN, C.N.P. LAB BLOOD ADD-ON Performing Organization Address City/State/ZIP Code Phon e Number [facility]- [address] [place] [address], [place] [address] [facility] [facility] [place] [address] System in [place] [address] HOLTER MONITOR - IN CLINIC GENERAL MERCHANDISE SALESPERSON (05/01/2020 4:03 PM CDT) [facility] gist Method Time Signature AF Count 0 count HOLTER SENTINEL Recording Date HOLTER SENTINEL VE Percent 33 percent HOLTER Beats SENTINEL Max Heart Rate 94 bpm HOLTER SENTINEL Max Heart Rate [id number] HOLTER Time SENTINEL Tachycardia 0 count HOLTER Runs SENTINEL VT Runs 21 count HOLTER SENTINEL VE Max Per [id number] HOLTER Hour Time SENTINEL SVE Max Per 19 count HOLTER Hour SENTINEL VT Longest 4 beats HOLTER SENTINEL SVE Percent 0 percent HOLTER Beats SENTINEL VT Max Rate [id number] HOLTER Time SENTINEL Bradycardia 0 count HOLTER Runs SENTINEL Min Heart Rate 60 bpm HOLTER SENTINEL Holter Pauses 0 count HOLTER SENTINEL SVT Runs 0 count HOLTER SENTINEL VT Longest [id number] HOLTER Time SENTINEL Min Heart Rate 48224869212420 HOLTER Time SENTINEL VE Total Beats 33,762 count HOLTER SENTINEL SVE Total 180 count HOLTER Beats SENTINEL Analysis Date 20,200,805 HOLTER SENTINEL VE Max Per 1,903 count HOLTER Hour SENTINEL Mean Heart 70 bpm HOLTER Rate SENTINEL VT Max Rate 134 bpm HOLTER SENTINEL SVE Max Per [id number] HOLTER Hour Time SENTINEL Specimen (Source) Anatomical [...] Failure (HCC) - Primary Atherosclerotic Heart Disease [place] Cor onary Artery With Other Forms Angina [...] as of this encounter Care Teams Fish Frog Or Oyster Farmer Relationship Specialty Start Date End Date Chris Billings M.B.B.S., M.D. PCP - General Family Medicine 01/10/20 05/21/[address] [place] [address] [place] [phone] documented as of this encounter
--- OUTSIDE RECORDS SUMMARY | 2022-05-28 06:48 | XMS_ITS | Encounter Summary ---
:1945 Author Organization [facility] Address [address] [place] [address] Care Team Providers Name Role Phone Chris Billings M.D. Primary Care Provider [phone] Encounter Details Date Type Department Care Team Description 04/20/2020 Clinical Communication Department of Rachael Mendez Cardiovascular Diseases R.NMauro in [facility] [address] [facility] [address] [place] [phone] Social History Tobacco Use Types [...] do you attend voodoo or Never 2021 orthodox services? Do you [...] have completed or the highest Martin, MEd, CAD DESIGN ENGINEER, CAYDEN) degree you have received? Sex Assigned at Date Recorded Male 05/21/2018 2:34 PM CDT documented as of this encounter Miscellaneous Notes Telephone Encounter - Rachael Mendez R.N. - 04/20/2020 8:34 AM CDT Name of person contacted: Patient Relationship to patient: Not applicable Call back number: N/A Compensation Coordinator: Not applicable Information provided: Reviewed Dr. Bañuelos's note with patient. motor vehicle salesperson/patient received and understood education/information provided: Yes motor vehicle salesperson/patient agreed to the Plan of Care: [...] documented as of this encounter Care Teams Wire Weaving Loom Setter Relationship Specialty Start Date End Date Chris Billings M.B.B.S., M.D. PCP - General Family Medicine 01/10/20 05/21/[address] [place] [address] [place] [phone] documented as of this encounter
--- OUTSIDE RECORDS SUMMARY | 2022-05-28 06:48 | XMS_ITS | Encounter Summary ---
:1945 Author Organization [facility] Address [address] [place] [address] Care Team Providers Name Role Phone Chris Billings M.D. Primary Care Provider [phone] Encounter Details Date Type Department Care Team Description 03/20/2020 Orders Only Division of Ran Eduardo Pancreatitis Chronic (HCC) (Primary Dx); Gastroenterology in [address] [facility] Clinical Research Exam [place], [place] [address] [facility] [address] [place] [address] [phone] Social History Tobacco Use Types Packs/Day Years [...] do you attend amish or Never 2021 bahai services? Do you [...] have completed or the highest Martin, MEd, DRAFTER SEISMOGRAPH, CAYDEN) degree you have received? Sex Assigned [...] documented as of this encounter Care Teams Independent Video Producer Relationship Specialty Start Date End Date Chris Billings M.B.B.S., Rhoda. PCP - General Family Medicine 01/10/20 05/21/[address] [place] [phone] documented as of this encounter
--- OUTSIDE RECORDS SUMMARY | 2022-05-28 06:48 | XMS_ITS | Encounter Summary ---
:1945 Author Organization [facility] Address [address] [place] [address] Care Team Providers Name Role Phone Chris Billings M.D. 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 Do you [...] have completed or the highest Martin, MEd, ALFALFA DEHYDRATOR OPERATOR, CAYDEN) degree you have received? Sex [...] 05/01/2020 reader (FREESTYLE ILEANA 14 DAY READER) [facility] [place] [place] flash glucose sensor Use as directed. 6 [...] ([facility]), Hypertension Essential Primary lisinopriL Take [...] Ph.D. LAB BLOOD ADD-ON Performing Organization Address City/[facility]/ZIP Code Phon e Number [facility] - [address] [place], [place] [address] [place] [address] Laboratories-[facility] [address] C-Peptide (04/12/2020 [...] Ph.D. LAB BLOOD ADD-ON Performing Organization Address City/[facility]/ZIP Code Phon e Number [facility] [address] [place], [place] [address] [facility] [place] [address] Laboratory Medicine and Pathology [address] [...] Address City/State/ZIP Code Phon e Number [facility]- [address], [place] [address] [place] [address] System in [place] [address] [place] [address] Sodium (04/12/2020 8:14 AM CDT) athologist Signature Sodium, P 137 135 - 145 04/12/2020 9:08 [place] mmol/L AM CDT Specimen Anatomical Collection Method Collection Time Receive d Time (Source) Location / / Volume Laterality Blood (Blood, 04/12/2020 8:14 AM 04/12/20 20 8:31 Venous) CDT AM CDT Carlos Kendall M.D., Ph.D. LAB BLOOD ADD-ON Performing Organization Address City/State/ZIP Code Phon e Number [facility]- [address] [place] [address] [place] [address] System in [place] [address] (ABNORMAL) CBC without Differential (04/12/2020 [...] Address City/State/ZIP Code Phon e Number [facility]- [address] [place] [address] [place] [address] System in [place] [address] [facility] (ABNORMAL) Lipid Panel (04/12/2020 8:14 AM CDT) [...] Address City/State/ZIP Code Phon e Number [facility]- [address] [place] [facility] [address] [place] [facility] [place] [facility] [address] System in [place] [address] ALT (Alanine Aminotransferase) (04/12/2020 8:14 AM CDT) [facility] gist Method Time Signature Alanine 16 7 - 55 04/12/2020 [place] Aminotransferase U/L 9:08 AM CDT (ALT), P Specimen Anatomical Collection Method Collection Time Receive d Time (Source) Location / / Volume Laterality Blood (Blood, 04/12/2020 8:14 AM 04/12/20 20 8:31 Venous) CDT AM CDT Authorizing Provider Result Deloris Kendall M.D., Ph.D. LAB BLOOD ADD-ON Performing Organization Address City/[facility]/ZIP Code Phon e Number [facility]- [address] [place] [facility] [place] [address] [place] [facility] [place] [facility] [address] System in [place] [address] AST (Aspartate Aminotransferase) (04/12/2020 8:14 AM CDT) [facility] [employer] Method Time Signature Aspartate 17 8 - 48 04/12/2020 [place] Aminotransferase U/L 9:08 AM CDT (AST), P Specimen Anatomical Collection Method Collection Time Receive d Time (Source) Location / / Volume Laterality Blood (Blood, 04/12/2020 8:14 AM 04/12/20 20 8:31 Venous) CDT AM CDT Carlos Kendall M.D., Ph.D. LAB BLOOD ADD-ON Performing Organization Address City/State/ZIP Code Phon e Number [facility]- [address] [place] [address] [place] [address] System in [place] [address] [facility] (ABNORMAL) Creatinine with Estimated GFR (04/12/2020 8:14 AM CDT) Analysis Performed At Patho logis Time Signature Creatinine 1.42 (H) 0.74 - 04/12/2020 [place] 1.35 mg/dL 9:08 AM CDT eGFR-Black/Afri 55 (L) >=60 04/12/2020 [place] can [place] mL/min/BSA 9:08 AM CDT Comment: ----ADDITIONAL INFORMATION---- Estimated GFR calculated using the 2009 CKD_EPI creatinine equation. eGFR Non-Black/ 48 (L) >=60 mL/min/BSA 04/12/2020 9:08 AM CDT [place] Comment: ----ADDITIONAL INFORMATION---- Estimated GFR calculated using the 2009 CKD_EPI creatinine equation. Specimen Anatomical Collection Method Collection Time Receive d Time (Source) Location / / Volume Laterality Blood (Blood, 04/12/2020 8:14 AM 04/12/20 8:31 Venous) CDT AM CDT K Randy Kendall M.D., Ph.D. LAB BLOOD ADD-ON Performing Organization Address City/State/ZIP Code Phon e Number [facility]- [address] [place] [address] [place] [address] System in [place] [address] [facility] (ABNORMAL) Hemoglobin A1c (04/12/2020 8:14 AM CDT) [facility] Time Signature Hemoglobin A1c, 10.3 (H) [...] 04/12/20 20 8:31 Venous) CDT AM CDT aCrlos Kendall M.D., Ph.D. LAB BLOOD ADD-ON Performing Organization Address City/State/ZIP Code Phon e Number [facility]- [address] [place] [address] [facility] [facility] [place] [facility] [address] System in [place] [address] (ABNORMAL) Glucose, Fasting [...] Address City/State/ZIP Code Phon e Number [facility]- [address] [place] [facility] [place] [address] [place] [address] System in [place] [address] T4 (Thyroxine), Total Only (04/12/2020 [...] [facility] - [address] [place], [place] [address] [facility] [place] [address] Laboratories-[facility] [address] T4 (Thyroxine), [...] Code Phon e Number [facility]- [address] [place] [address] [place] [address] System in [place] [address] documented in this encounter Visit Diagnoses Diagnosis Fatigue 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 PCP - General Family Medicine 01/10/20 05/21/20 [address] [facility] [place] [address] documented as of this encounter
--- OUTSIDE RECORDS SUMMARY | 2022-05-28 06:49 | XMS_ITS | Encounter Summary ---
:1945 Author Organization [facility] Address [address] [place] [address] Care Team Providers Name Role Phone Chris Billings M.D. Primary Care Provider +1 [phone] Reason for Visit Reason Onset Date Comments Outpatient COVID-19 Testing 01/24/2020 Encounter Details Date Type Department Care Team Description 01/24/2020 External Outreach Department of Collin Cervantes Infectmendez venegas [facility] Medicine, D.[place]. Respiratory ([place] [address]) [place], [place] [address] [address] [place], [place] [phone] [address] (Work) [phone] Social History Tobacco Use Types Packs/Day Years [...] do you attend taoism or Never 2021 hinduism services? Do you [...] have completed or the highest Martin, MEd, HOSPICE NURSE, [place]) degree you have received? Sex [...] SARS Coronavirus-2, PCR (01/24/2020 12:56 PM CDT) [facility] Method Time Signature SARS Swab, 01/25/2020 [...] its performa nce characteristics determined by [facility] in a manner co nsistent with CLIA requirements. Independent review by the U.S. Food and Drug Administration is pending. Visit the CDC website: https://www.cdc.gov/coronavirus/ ?? for the most recent guidelines on Mederos virus testing. Fact Sheet for Healthcare Providers: (https://www.CureDM/it-mmfil es/ Provider_Fact_Sheet_for_[facility]_COVI D-19.pdf) Fact Sheet for Patients: (https://www.CureDM/it-mmfil es/ Patient_Fact_Sheet_for_COVID-19.pdf) Specimen Anatomical Collection Method Collection Time Receive d Time (Source) Location / / Volume Laterality Varies 01/24/2020 12:56 01/24/2020 2:41 (Nasopharynx) PM CDT PM CDT Collin Cervantes D.O. LAB MICROBIOLOGY - GENERAL O RDERABLES Performing Organization Address City/State/ZIP Code Phon e Number [facility] - [address] [place], [place] [address] [facility] [place] [place] [address] [facility] [address] documented in this encounter Visit Diagnoses Diagnosis Infection Upper Respiratory - Primary documented in this encounter Additional Health Concerns Infection Onset Date Last Indicated Resolved Time COVID19 Pending 01/24/2020 01/24/2020 01/25/2020 12:58 AM CDT Assessment Noted Time PHQ-9 Depression Total Score: 18 04/28/2018 11:27 AM C DT documented as of this encounter Care Teams X Ray Technologist Relationship Specialty Start Date End Date Wariboko, Chris I., M.B.B.S., M.D. PCP - General Family Medicine 01/10/20 05/21/[address] [place] [address] [place] [phone] documented as of this encounter
--- OUTSIDE RECORDS SUMMARY | 2022-05-28 06:49 | XMS_ITS | Encounter Summary ---
:1945 Author Organization [facility] Address [address] [place] [address] Care Team Providers Name Role Phone Chris Billings M.D. Primary Care Provider +1 [phone] Reason for Visit Reason Comments [facility] Nurse Line Encounter Details Date Type Department Care Team Description 02/02/2020 Clinical Division of [facility] [place] Communication Gastroenterology in Center [place], [place] [address] [facility] [address] [place] [address] [place] [address] Social History Tobacco Use Types Packs/Day Years [...] do you attend gnosticism or Never 2021 roman catholic services? Do [...] completed or the highest Martin, MEd, OIL PROCESSING TECHNICIAN, [place]) degree you have received? Sex [...] reply to: Debi Galarza Scheduling Contact Number: [phone] documented in this encounter Plan of Treatment Not on filedocumented as of this encounter Visit Diagnoses Not on filedocumented in this encounter Additional Health Concerns Assessment Noted Time PHQ-9 Depression Total Score: 18 04/28/2018 11:27 AM C DT documented as of this encounter Care Teams Steward/Stewardess Tourist Class Relationship Specialty Start Date End Date Chris Billings M.B.B.S., M.D. PCP - General Family Medicine 01/10/20 05/21/[address] [place] [address] [place] [phone] documented as of this encounter
--- OUTSIDE RECORDS SUMMARY | 2022-05-28 06:49 | XMS_ITS | Encounter Summary ---
:1945 Author Organization [facility] Address [address] [place] [address] Care Team Providers Name Role Phone Chris Billings M.D. 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 [address] [place], [place] [address] Referral ID Status Reason Start Date Expiration Date Visits Requ ested Visits Authorized [id number] Closed 12/17/2019 12/16/2020 1 1 Encounter Details Date Type Department Care Team Description 03/07/2020 Hospital Division of Keisha Lopez Type 2 With Diabetic Neuropathy (HCC); Encounter Gastroenterology in T, WATER POLLUTION CONTROL INSPECTOR, Pancreat itis Chronic (HCC); [place], [place] CShayna, M.S.N. Exocrine Pancreatic Insufficiency (HCC) [address] [facility] [address] [place] [address] [phone] Social History Tobacco Use Types Packs/Day Years [...] do you attend baptist or Never 2021 quaker services? Do you [...] have completed or the highest Martin, MEd, ROOFER APPLICATOR, CAYDEN) degree you have received? Sex Assigned [...] through Care Everywhere. About Your Endoscopic Ultrasound (Tamazight)documented in this encounter Medications at Time of [...] once Atherosclerotic Heart for 1 dose. 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 Atherosclerotic Heart Disease [place] Coronary Artery With Other Forms Angina Pectoris [...] by mouth tabletIndications: daily. 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) ([facility]), Diabetes Mellitus Type 2 ([facility]), Hypertension Essential Primary lisinopriL Take [...] POCT, 219 (H) 70 - 140 03/07/2020 [facility] B mg/dL 9:40 AM CDT Site Capillary 03/07/2020 [facility] 9:40 AM CDT Specimen Anatomical Collection Method Collection Time Receive d Time (Source) Location / / Volume Laterality Blood 03/07/2020 9:38 AM 0 9:40 CDT AM CDT Unknown Provider LAB POCT ORDERABLES-MANUAL Performing Organization Address City/State/ZIP Code Phon e Number POC [facility] [address] [place] [address] OUTPATIENT LABS [facility] [place], [place] [id number] [place] [address] documented in this encounter [...] documented as of this encounter Care Teams Help Desk Rep Relationship Specialty Start Date End Date Chris Billings M.B.B.S., M.D. PCP - General Family Medicine 01/10/20 05/21/[address] [place] [address] [place] Marc [phone] documented as of this encounter
--- OUTSIDE RECORDS SUMMARY | 2022-05-28 06:49 | XMS_ITS | Encounter Summary ---
:1945 Author Organization [facility] Address [address] [place] [address] Care Team Providers Name Role Phone Chris Billings M.D. Primary Care Provider +1 [phone] Encounter Details Date Type Department Care Team Description 01/21/2020 Orders Only Department of [facility] Chris Billings I., [facility] [address] [facility] [address] [place], [place] [address] [phone] (Wo rk) Social History Tobacco Use Types [...] do you attend druze or Never 2021 mormonism services? Do you [...] have completed or the highest Martin, MEd, STAMP MACHINE SERVICER, [place]) degree you have received? Sex [...] as of this encounter Care Teams Director Learning Relationship Specialty Start Date End Date Chris Billings M.B.BMauroSMauro, MDahlia. PCP - General Family Medicine 01/10/20 05/21/[address] [place] [address] [place] [phone] documented as of this encounter
--- OUTSIDE RECORDS SUMMARY | 2022-05-28 06:49 | XMS_ITS | Encounter Summary ---
:1945 Author Organization [facility] Address [address] [place] [address] Care Team Providers Name Role Phone Chris Billings M.D. Primary Care Provider [phone] [phone] Reason for Visit Reason Comments COVID Nurse Line Encounter Details Date Type Department Care Team Description 01/24/2020 Clinical Communication Department of DHRUV Bañuelos Nurse Line Cardiovascular Koko Champagne M.D. Diseases in [address] [address] [place], [place] [phone] [address] (Work) [phone] Social History Tobacco Use Types Packs/Day Years [...] do you attend confucianism or Never 2021 mandaen services? Do you [...] or the highest Martin, MEd, CUSTOMER SERVICE REP, CAYDEN) degree you have received? Sex [...] to be swabbed for COVID-19, sent to [place], [place] . Because testing is recommended, we will have to delay your appointment for at least 14 days. Care Points provided: STANDARD PRECAUTIONS FOR ALL PATIENTS: Wash hands often with soap and water for at least 20 seconds, especially after blowing your nose, coughing, sneezing, or having been in a public place. If soap and water aren't available, use a hand automotive dismantler that contains at least 60% alcohol. Avoid [...] essential items or medical care). Educational Resource: https://www.cdc.gov/coronavirus/2019-ncov/busaafe-cmhnfsy-zery/index.html RECOMMENDATIONS TESTING CRITERIA IS MET: Stay home [...] or 65 years and older. Go to [facility] emergency department if any of the following occur: 1) New shortness of breath at rest, 2) Pain, pressure or tightness unrelated to coughing in the chest, jaw or arm, 3) Newly confused or unable to stay alert and awake. Notify primary care provider if any new or worsening symptoms. Education Resources: https://www.cdc.gov/coronavirus/2019-ncov/ai-clt-auc-sick/fownr-ftoe-fyni.html Education: patient/caregiver Patient/caregiver able to teach back Patient agreeable to plan of care: Yes The following references were used: [facility] [place] [facility] novel coronavirus (COVID- 19) resources Nursing [...] Monserrat AYALA REG LAB SCHEDULING Scheduling Contact Number:[phone] documented in this encounter Plan of Treatment Not on filedocumented as of this encounter Visit Diagnoses Not on filedocumented in this encounter Additional Health Concerns Infection Onset Date Last Indicated Resolved Time COVID19 Pending 01/24/2020 01/24/2020 01/25/2020 12:58 AM CDT Assessment Noted Time PHQ-9 Depression Total Score: 18 04/28/2018 11:27 AM C DT documented as of this encounter Care Teams Machine Plate Stacker Relationship Specialty Start Date End Date Chris Billings M.B.B.S., M.D. PCP - General Family Medicine 01/10/20 05/21/[address] [place] [address] [place] Marc [phone] documented as of this encounter
--- OUTSIDE RECORDS SUMMARY | 2022-05-28 06:49 | XMS_ITS | Encounter Summary ---
:1945 Author Organization [facility] Address [address] [place] [address] Care Team Providers Name Role Phone Chris Billings M.D. Primary Care Provider [phone] [phone] Reason for Visit Reason Comments other Outpatient (Routine) - Closed Specialty Diagnoses / Procedures Referred By Contact Refer red To Contact Infectious Diseases Diagnoses Pancreatitis Chronic (HCC) Exocrine Pancreatic Insufficiency Diarrhea [facility] [place] [address] [place] [address] Referral ID Status Reason Start Date Expiration Date Visits V isits Requested Authorized [id number] Closed Specialty 03/10/2020 03/10/2021 1 1 Services Required Encounter Details Date Type Department Care Team Description 03/13/2020 Comprehensive Visit Section of Freda Zurita M.D. [address] [place] [address] Pancreatitis Chronic (HCC); Infectious Diseases Katelyn Dixon M.D. [address] [place] [phone] Exocrine Pancreatic Insufficiency (HCC); in [facility] [address] [place] [address] Social History Tobacco Use Types Packs/Day Years [...] do you attend voodoo or Never 2021 evangelical services? Do you [...] have completed or the highest Martin, MEd, SPECIAL POLICE OFFICER, [place]) degree you have received? Sex [...] Master's degree (e.g., MA, MS, Martin, MEd, SPECIAL POLICE OFFICER, CAYDEN) Occupational History Employer: RETIRED Social Needs [...] week Gets together: Twice a week Attends evangelical service: 1 to 4 times per year [...] documented as of this encounter Care Teams Pharmaceutical Analyst Relationship Specialty Start Date End Date Chris Billings M.B.B.S., M.D. PCP - General Family Medicine 01/10/20 05/21/[address] [place] [address] [place] [phone] documented as of this encounter
--- OUTSIDE RECORDS SUMMARY | 2022-05-28 06:49 | XMS_ITS | Encounter Summary ---
:1945 Author Organization [facility] Address [address] [place] [address] Care Team Providers Name Role Phone Chris Billings M.D. 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 [facility] Procedures CT Retrospective Heartflow FFRct [address] [place] [address] Referral ID Status Reason Start Date Expiration Date Visits Requ ested Visits Authorized [id number] Closed 01/27/2020 01/26/2021 1 1 Encounter Details Date Type Department Care Team Description 01/27/2020 Hospital Encounter Department of Robbin Bañuelos Heart Radiology in Koko Champagne M.D. Disease Circle Coronary [place], [address] [place] [address] Artery With Other Forms [place], [place] Angina Pectoris (Angina [address] [address] Equivalent) ([facility]) [place], [place] [phone] [address] (Work) Social History Tobacco Use Types [...] do you attend samaritan or Never 2021 evangelical services? Do you [...] have completed or the highest Martin, MEd, ORNAMENTAL IRON ERECTOR, [place]YDEN) degree you have received? Sex [...] once Atherosclerotic Heart for [address] 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 6 [...] by mouth tabletIndications: daily. Atherosclerotic Heart Disease [place] Coronary Artery With Other Forms Angina Pectoris [...] HEARTFLOW FFRCT (most inpatients PM CDT Disease Circle this p rocedure and all Coronary Artery [...] encounter Visit Diagnoses Diagnosis Atherosclerotic Heart Disease [place] Cor onary Artery With Other Forms Angina Pectoris (Angina Equivalent) (HCC) documented in this encounter Additional Health Concerns Assessment Noted Time PHQ-9 Depression Total Score: 18 04/28/2018 11:27 AM C DT documented as of this encounter Care Teams Foot Press Operator Relationship Specialty Start Date End Date Chris Billings M.B.B.S., M.D. PCP - General Family Medicine 01/10/20 05/21/[address] [place] [address] [place] [phone] documented as of this encounter
--- OUTSIDE RECORDS SUMMARY | 2022-05-28 06:49 | XMS_ITS | Encounter Summary ---
:1945 Author Organization [facility] Address [address] [place] [address] Care Team Providers Name Role Phone Chris Billings M.D. 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 [facility] Procedures CT Cardiac Angiogram with Coronary Arteries with IV Contrast [address] [place] [address] Referral ID Status Reason Start Date Expiration Date Visits Requ ested Visits Authorized [id number] Closed 01/20/2020 01/19/2021 1 1 Encounter Details Date Type Department Care Team Description 01/27/2020 Hospital Encounter Department of [place], Atherosc lerotic Heart Radiology, Leanne Champagne M.D. Disease [place] Coronary Building, in [address] Artery With Other Forms [place], [place] Angina Pectori s (Angina [place] [address] Equivalent) ([facility]) [address] [phone] [place], [place] (Work) [phone] Social History Tobacco Use [...] do you attend scientology or Never 2021 amish services? Do you [...] completed or the highest Martin, MEd, ASSISTANT STORE LEADER, CAYDEN) degree you have received? Sex [...] once Atherosclerotic Heart for 1 dose. 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 6 [...] by mouth tabletIndications: daily. 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 Patient verified he is taking isosorbide mononitrate ER 30 mg daily and chlorthalidone 25 mg daily. No additional questions or concerns at time of call. backshoe person/patient received and understood education/information provided: Yes backshoe person/patient agreed to the Plan of Care: Yes documented in this encounter Plan of Treatment Not on filedocumented as of this encounter Procedures Procedure Name Priority Date/Time Associated Diagnosis Comme nts CT CARDIAC RAD - Routine 01/27/2020 3:00 Atherosclerotic Heart Re sults for ANGIOGRAM WITH (most inpatients PM CDT Disease [place] this pr ocedure CORONARY and all Coronary [...] , this study is being sent to [facility] for coronary FFRct analysis. ??FFRct res ults [...] , this study is being sent to [facility] for coronary FFRct analysis. FFRct resul ts will be reported separately when analysis by [facility] is complete Koko SALINSA CT PROCEDURES documented in this encounter Visit Diagnoses Diagnosis Atherosclerotic Heart Disease [place] Cor onary Artery With Other Forms Angina [...] documented as of this encounter Care Teams Rig Supervisor Relationship Specialty Start Date End Date Chris Billings M.B.B.S., M.D. PCP - General Family Medicine 01/10/20 05/21/[address] [place] [address] [place] Marc [phone] documented as of this encounter
--- OUTSIDE RECORDS SUMMARY | 2022-05-28 06:49 | XMS_ITS | Encounter Summary ---
:1945 Author Organization [facility] Address [address] [place] [address] Care Team Providers Name Role Phone Chris Billings M.D. Primary Care Provider +1 [phone] Encounter Details Date Type Department Care Team Description 02/16/2020 Clinical Communication Division of [facility] Gastroenterology in [place], [place] [address] [facility] [address] [place] [address] [phone] Social History Tobacco Use Types Packs/Day Years [...] have completed or the highest Martin, MEd, LONGWALL HEADGATE OPERATOR, CAYDEN) degree you have received? Sex Assigned at Date Recorded Male 05/21/2018 2:34 PM CDT documented as of this encounter Plan of Treatment Not on filedocumented as of this encounter Visit Diagnoses Not on filedocumented in this encounter Additional Health Concerns Assessment Noted Time PHQ-9 Depression Total Score: 18 04/28/2018 11:27 AM C DT documented as of this encounter Care Teams Chief Catalyst Operator Relationship Specialty Start Date End Date Chris Billings M.B.B.S., [place]. PCP - General Family Medicine 01/10/20 05/21/[address] [place] [phone] documented as of this encounter
--- OUTSIDE RECORDS SUMMARY | 2022-05-28 06:49 | XMS_ITS | Encounter Summary ---
:1945 Author Organization [facility] Address [address] [place] [address] Care Team Providers Name Role Phone Chris Billings M.D. Primary Care Provider +1 [phone] Reason for Referral Outpatient (Routine) - Closed Specialty Diagnoses / Procedures Referred By Contact Refer red To Contact Endocrinology Diagnoses Diabetes Mellitus Type 2 With Diabetic Neuropathy (HCC) Diarrhea Fatigue Emil Zurita M.D. [facility] [address] [place], [place] [phone] Referral ID Status Reason Start Date Expiration Date Visits Requ ested Visits Authorized [id number] Closed 02/17/2020 02/16/2021 1 1 Encounter Details Date Type Department Care Team Description 02/10/2020 Clinical Communication Division of Parminder Gastroenterology in [place] Stein [place], [place] [address] [facility] [address] [place] [phone] Social History Tobacco Use Types Packs/Day Years [...] do you attend zoroastrian or Never 2021 orthodoxy services? Do you belong to any clubs or No 10/09/2021 organizations such as zoroastrian groups, unions, fraPreViser or athletic groups, or school groups? How [...] BM's in the morning (down from 5-6) Forrest 6 (was Forrest 7) No blood in his stool Since [...] With 03/13/2020 (clinic) Diabetic Neuropathy (Approxi mate), ([facility]) Expires: Diarrhea 02/14/2023 Fatigue documented as of [...] [facility] [address] [place], [place] [address] [facility] [place] [address] Laboratories-[facility] [address] (ABNORMAL) GI Pathogen [...] using the FDA-cl eared FilmArray GI Panel ([employer] Semi-Urgent This is a semi-urgent result [facility] Specimen Anatomical Collection Method Collection Time Receive d Time (Source) Location / / Volume Laterality Stool (Stool) 02/24/2020 5:00 AM 02/25/20 20 CDT 12:05 PM CDT Resulting Agency Comment Mailed In Specimen Emil Zurita M.D. LAB MICROBIOLOGY - GENERAL O RDERABLES Performing Organization Address City/State/ZIP Code Phon e Number [facility] - [address] [place], [place] [address] [facility] [place] [address] [facility] [address] documented in this encounter Visit Diagnoses Diagnosis 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) - Primary Diarrhea Fatigue documented in this encounter Additional Health Concerns Assessment Noted Time PHQ-9 Depression Total Score: 18 04/28/2018 11:27 AM C DT documented as of this encounter Care Teams Vamp Wetter Relationship Specialty Start Date End Date Chris Billings M.B.B.S., M.D. PCP - General Family Medicine 01/10/20 05/21/[address] [place] [phone] documented as of this encounter
--- OUTSIDE RECORDS SUMMARY | 2022-05-28 06:49 | XMS_ITS | Encounter Summary ---
:1945 Author Organization [facility] Address [address] [place] [address] Care Team Providers Name Role Phone Chris Billings M.D. Primary Care Provider +1 [phone] Encounter Details Date Type Department Care Team Description 01/17/2020 Clinical Communication Department of Koko Bañuelos Cardiovascular Diseases Pato Champagne in [address] [place] [phone] Social History Tobacco Use Types [...] do you attend mormonism or Never 2021 adventist services? Do you [...] have completed or the highest Martin, MEd, DICTATING MACHINE MECHANIC, CAYDEN) degree you have received? Sex Assigned at Date Recorded Male 05/21/2018 2:34 PM CDT documented as of this encounter Miscellaneous Notes Telephone Encounter - Starr Hernandez R.N. - 01/17/2020 2:33 PM CDT INFORMATION DISCUSSED Spoke to patient via telephone call. Patient and radio script writer reviewed appointments he had with Dr. Sims and Dr. Billings. Pillar Worker reviewed the notes. Patient thought he was to have a Echocardiogram complete. The orders in the system are for Cardiology consult and Electrocardiogram and the notes from the doctors visits reflect Cardiology consult and Electrocardiogram.. Patient transferred to Scheduling to schedule Cardiology consult and Electrocardiogram. ?? PLAN - see above ?? Disposition/Recommendation: Patient repeated directions to radio script writer. Education: patient/caller able to teach back Caller agreeable to plan of care: yes The following references were used: provider Dr. Sims and Dr. Blilings Telephone Encounter - Awa Parham - 01/17/2020 9:48 AM CDT Reason for Communication: Patient is returning [facility] Current Can Nursing/Provider leave a detailed message: [...] documented as of this encounter Care Teams Tennis Ball Cover Cementer Relationship Specialty Start Date End Date Chris Billings M.B.B.S., M.D. PCP - General Family Medicine 01/10/20 05/21/[address] [place] [address] [phone] documented as of this encounter
--- OUTSIDE RECORDS SUMMARY | 2022-05-28 06:49 | XMS_ITS | Encounter Summary ---
:1945 Author Organization [facility] Address [address] [place] [address] Care Team Providers Name Role Phone Chris Billings M.D. 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) Kkoo Bañuelos M.D. 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) Chris Billings I. [facility] Cardiovascular Disease Pato Blackmon [address] [place] [address] Referral ID Status Reason Start Date Expiration Date Visits Requ ested Visits Authorized [id number] Closed 01/12/2020 01/11/2021 1 1 Encounter Details Date Type Department Care Team Description 01/20/2020 Comprehensive Visit Department of Christopher Bañuelosrotic Heart Cardiovascular Koko Champagne Disease Nativ e Diseases in [place] Coronary Artery With [place] [address] State Other Forms Angina [address] Pectoris (Angina [place], [facility], Equivalent) (HC C) [id number] ID [id number] Social History Tobacco Use Types Packs/Day [...] completed or the highest Martin, MEd, MEDICAL REIMBURSEMENT MANAGER, CAYDEN) degree you have received? Sex [...] quit 1979. 8. Asthma, mild. Seen by creative arts music therapist 11/2019. 9. History of pancreatitis. - CT [...] as low-sodium diet. We recommended resumption of [place] 3 fish oil to improve his triglycerides. [...] provider or endocrinology. Continue management asthma with creative arts music therapist. Pancreatitis and anemia with primary care provider. 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) - Cardiovascular Disease - General cardiology consult [...] agreement with the plan. CARDIOLOGY CONSULTATION Location: [facility]. Referring Provider: Chris Billings M.B.B.S., M.D. SUBJECTIVE CHIEF COMPLAINT/REASON FOR CONSULT Follow-up (stress echo) HISTORY OF PRESENT ILLNESS Mr. Jonnathan Costa is a very pleasant 74 y.o. male [facility], shortness [...] kylie wore and was exposed to Agent Dim[place], 70% disabled. Cardiovascular Risk Factors: 1. Smoking [...] mouth daily. ??? flash glucose scanning reader (i[employer]ent[employer] Asia LtdSTYLE ILEANA 14 DAY READER) misc Use as [...] g by mouth daily. Not currently on [place] 3 fish oil, metformin short-acting diltiazem or [...] Master's degree (e.g., MA, MS, Martin, MEd, MEDICAL REIMBURSEMENT MANAGER, CAYDEN) Occupational History Employer: RETIRED Social Needs [...] week Gets together: Twice a week Attends restorationism service: 1 to 4 times per year [...] ??? Ventricular Rate ECG/Min 01/20/2020 66 ??? IN Interval 01/20/2020 158 ??? QRSD Interval 01/20/2020 96 ??? QT Interval 01/20/2020 444 ??? QTC Interval 01/20/2020 465 ??? P [place] 01/20/2020 2 ??? R [place] 01/20/2020 -61 ??? T Wave [place] 01/20/2020 -25 Hospital Outpatient Visit on 01/13/2020 [...] 12/15/2019 2.62 ??? FEV1/FVC 12/15/2019 67.58 ??? QAW53-44% 12/15/2019 1.41 ??? PEF PRE 12/15/2019 7.01 ??? FET PRE 12/15/2019 12.56 ??? DLCO 12/15/2019 17.97 ??? VA 12/15/2019 6.35 ??? T2LrlHdls 12/15/2019 96.00 ??? PulseRest 12/15/2019 85.00 ??? P8KsvWflz 12/15/2019 93.00 ??? PulseExer 12/15/2019 103.00 ??? [...] 39 ??? ENOComment 12/15/2019 Patient takes Albuterol, [facility] Outpatient Visit on 11/18/2019 Component Date Value [...] ??? Ventricular Rate ECG/Min 10/20/2019 73 ??? IN Interval 10/20/2019 142 ??? QRSD Interval 10/20/2019 110 ??? QT Interval 10/20/2019 416 ??? QTC Interval 10/20/2019 459 ??? P [place] 10/20/2019 35 ??? R [place] 10/20/2019 -40 ??? T Wave [place] 10/20/2019 48 There may be more visits [...] acute radiographic abnormality. The ASCVD Risk score (Willis DC Jr., et al., 2013) failed to calculate for the following reasons: The patient has a prior NH or stroke diagnosis Pertinent cardiac (or related) [...] for this EGFR, S/P AM CDT Disease [place] Coronary proc edure are in Artery With Other Forms the results Angina Pectoris (Angina sect ion. Equivalent) (HCC) documented in this encounter Results (TTE) 2D ECHO DOPPLER COLOR (04/17/2020 10:06 AM CDT) [facility] gist Method Time Signature Ejection Fraction 42 [...] effusion. For the complete report, see the [employer] Documents. Narrative 04/17/2020 1:23 PM CDT For the complete report, see the [employer] Documents. Final Impressions 1. Mildly enlarged left [...] 04/17/2020 For the complete report, see the [employer] Documents. Final Impressions 1. Mildly enlarged left [...] , this study is being sent to [facility] for coronary FFRct analysis. ??FFRct res ults [...] , this study is being sent to [facility] for coronary FFRct analysis. FFRct resul ts will be reported separately when analysis by [facility] is complete Koko Bañuelos M.D. IMG CT PROCEDURES (ABNORMAL) Creatinine with Estimated GFR (01/20/2020 10:52 AM CDT) P athologist Signature Creatinine 1.27 0.74 - 01/20/2020 [place] 1.35 mg/dL 11:32 AM CDT eGFR-Black/Afric 63 >=60 01/20/2020 [place] an Australian mL/min/BSA 11:32 AM CDT Comment: ----ADDITIONAL INFORMATION---- Estimated GFR calculated using the 2009 CKD_EPI creatinine equation. eGFR Non-Black/ 55 (L) >=60 mL/min/BSA 01/20/2020 11:32 AM CDT [place] Comment: ----ADDITIONAL INFORMATION---- Estimated GFR calculated using the 2009 CKD_EPI creatinine equation. Specimen Anatomical Collection Method Collection Time Receive d Time (Source) Location / / Volume Laterality Blood (Blood, 01/20/2020 10:52 01/20/2020 Venous) AM CDT 11:00 AM CDT Koko Bañuelos M.D. LAB BLOOD ADD-ON Performing Organization Address City/State/ZIP Code Phon e Number [facility] [address] [place] [address] [place] [address] System in [place] [address] documented in this encounter Visit Diagnoses Diagnosis Atherosclerotic Heart Disease [place] Cor onary Artery With Other Forms Angina Pectoris (Angina Equivalent) (HCC) Atherosclerotic Heart Disease [place] Cor onary Artery With Other Forms Angina Pectoris (Angina Equivalent) (HCC) Atherosclerotic Heart Disease [place] Cor onary Artery With Other Forms Angina Pectoris (Angina Equivalent) (HCC) documented in this encounter Additional Health Concerns Assessment Noted Time PHQ-9 Depression Total Score: 18 04/28/2018 11:27 AM C DT documented as of this encounter Care Teams Public Relations Officer Relationship Specialty Start Date End Date Chris Billings M.B.B.S., M.D. PCP - General Family Medicine 01/10/20 05/21/[address] [place] [address] [place] [id number] documented as of this encounter
--- OUTSIDE RECORDS SUMMARY | 2022-05-28 06:49 | XMS_ITS | Encounter Summary ---
:1945 Author Organization [facility] Address [address] [place] [address] Care Team Providers Name Role Phone Chris Billings M.D. Primary Care Provider +1 [phone] Reason for Referral Outpatient (Routine) - Closed Specialty Diagnoses / Procedures Referred By Contact Refer red To Contact Infectious Diseases Diagnoses Pancreatitis Chronic (HCC) Exocrine Pancreatic Insufficiency Diarrhea Emil Zurita [place] M.D. [address] [place] [address] Referral ID Status Reason Start Date Expiration Date Visits V isits Requested Authorized [id number] Closed Specialty 03/10/2020 03/10/2021 1 1 Services Required Reason for Visit Reason Comments Pancreas Encounter Details Date Type Department Care Team Description 03/10/2020 Clinical Communication Division of Kasey Zurita Gastroenterology in [place]oda Stein [place], [place] [address] [facility] [address] [place] [phone] Social History Tobacco Use Types Packs/Day Years [...] do you attend taoism or Never 2021 baptist services? Do you [...] completed or the highest Martin, MEd, CUSTOMS APPRAISER, CAYDEN) degree you have received? Sex Assigned [...] as of this encounter Care Teams Manager Deli Relationship Specialty Start Date End Date Chris Billings M.B.B.S., M.D. PCP - General Family Medicine 01/10/20 05/21/[address] [place] [phone] documented as of this encounter
--- OUTSIDE RECORDS SUMMARY | 2022-05-28 06:49 | XMS_ITS | Encounter Summary ---
:1945 Author Organization [facility] Address [address] [place] [address] Care Team Providers Name Role Phone Chris Billings M.D. Primary Care Provider +1 [phone] Encounter Details Date Type Department Care Team [...] do you attend restorationism or Never 2021 denominational services? Do you [...] completed or the highest Martin, MEd, SENIOR ENGINEERING TECHNICIAN, CAYDEN) degree you have received? Sex [...] documented as of this encounter Care Teams Retail Selling Floor Leader Relationship Specialty Start Date End Date Chris Billings M.B.B.S., M.D. PCP - General Family Medicine 01/10/20 05/21/[address] [place] [address] [place] [phone] documented as of this encounter
--- OUTSIDE RECORDS SUMMARY | 2022-05-28 06:49 | XMS_ITS | Encounter Summary ---
:1945 Author Organization [facility] Address [address] [place] [address] Care Team Providers Name Role Phone Chris Billings M.D. Primary Care Provider +1 [phone] Encounter Details Date Type Department Care Team Description 02/17/2020 Hospital Encounter Department of Parminder, Diabetes Mellitus Type 2 With Diabetic Neuropathy (HCC); Laboratory Medicine [place]oda Stein Diarrhea; and Pathology, [address] [place] [address], in [place], [place] [phone] [place] [address] [place], [place] (Work) [phone] Social History Tobacco Use Types Packs/Day Years [...] do you attend nondenominational or Never 2021 rastafari services? Do you belong to any clubs or No 10/09/2021 organizations such as nondenominational groups, unions, fraEVRST or athletic groups, or school groups? How [...] completed or the highest Martin, MEd, CAREER SPECIALIST, CAYDEN) degree you have received? Sex [...] once Atherosclerotic Heart for 1 dose. Disease [place] Coronary Artery With Other Forms Angina Pectoris (Angina Equivalent) ([facility]), Hypertension Essential Primary, Fatigue dilTIAZem CD (CARDIZEM Take 1 capsule (240 90 capsule 3 12/2803/15/2020 CD/CARTIA XT) 240 mg 24 mg total) by mouth hr capsuleIndications: daily. 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 Please review specific state and local [facility] for reporting information. Semi-Urgent Result. Semi-Urgent This is a semi-urgent result [facility] S Specimen Anatomical Collection Method Collection Time Receive d Time (Source) Location / / Volume Laterality Stool 02/24/2020 5:00 AM 0 CDT 11:34 AM CDT Resulting Agency Comment Mailed In Specimen Emil Zurita M.D. LAB MICROBIOLOGY - GENERAL O ODELLERASHAY Performing Organization Address City/State/ZIP Code Phon e Number [facility] [address] [place], [place] [address] [facility] [place] [address] Laboratories-[facility] [address] [facility] (ABNORMAL) GI Pathogen Panel, PCR, Feces [...] using the FDA-cl eared FilmArray GI Panel ([employer] Semi-Urgent This is a semi-urgent result [facility] - () [facility] Specimen Anatomical Collection Method Collection Time Receive d Time (Source) Location / / Volume Laterality Stool (Stool) 02/24/2020 5:00 AM 02/25/20 20 CDT 12:05 PM CDT Resulting Agency Comment Mailed In Specimen Emil Zurita M.D. 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 PCP - General Family Medicine 01/10/20 05/21/[address] [place] [address] [place] [phone] documented as of this encounter
--- OUTSIDE RECORDS SUMMARY | 2022-05-28 06:49 | XMS_ITS | Encounter Summary ---
:1945 Author Organization [facility] Address [address] [place] [address] Care Team Providers Name Role Phone Chris Billings M.D. Primary Care Provider [phone] [phone] Encounter Details Date Type Department Care Team Description 03/07/2020 Anesthesia Event Division of Zhang White APRN, SWEETIE [address] [place] [phone] Gastroenterology in Natasha Barrios M.D. [address] [place] [phone] [place], [place] [address] [place], [place] [phone] Anesthesia Record Procedure Summary Procedure Name Responsible Anesthesia Start Anesthesia Stop Anesthesiologist Time Time ENDOSCOPIC Zhang White APRN, 03/07/20 1101 03/07/20 1146 ULTRASOUND (EUS) SKOOG OPERATOR Events Date Time Event Comment 03/07/2020 0950 [...] h andoff to the receiving staff during [facility] we 1. Identified the patient [...] do you attend scientologist or Never 2021 mormonism services? Do you [...] have completed or the highest Martin, MEd, INTERNET DESIGNER, CAYDEN) degree you have received? Sex Assigned at Date Recorded Male 05/21/2018 2:34 PM CDT documented as of this encounter OR Notes Anesthesia Postprocedure Evaluation - Zhang White APRN, CRNA - 03/07/2020 11:46 AM CDT Patient: Jonnathan Costa Procedure Summary Date: 03/07/20 Room / Location: Division of Gastroenterology in [place], [place] Anesthesia Start: 1101 Anesthesia Stop: 1146 [...] (HCC) [K86.81] Location: Division of Gastroenterology in [place], [place] Pertinent components of the patient's history [...] with patient /legal guardian or through an coating inspector. Risks/Benefits/Alternatives of Blood transfusion discussed with patient [...] as of this encounter Care Teams Field Rep Relationship Specialty Start Date End Date Chris Billings M.B.B.S., M.D. PCP - General Family Medicine 01/10/20 05/21/[address] [place] [address] [place] [phone] documented as of this encounter
--- OUTSIDE RECORDS SUMMARY | 2022-05-28 06:49 | XMS_ITS | Encounter Summary ---
:1945 Author Organization [facility] Address [address] [place] [address] Care Team Providers Name Role Phone Chris Billings M.D. Primary Care Provider [phone] Reason for Visit Reason Comments Atherosclerotic Heart Disease [place] Coronary Artery O rder for [facility] With Ot Encounter Details Date Type Department Care Team Description 01/20/2020 Clinical Department of Pessmeryl, Atheroscleroti c Heart Communication Cardiovascular Koko S, Disease Yakelin ve Diseases in [place]o [place] Coronary Artery With [address] [place] (Order for [place] [address] [facility]) [place], [address] [place] [phone] Social History Tobacco Use Types Packs/Day [...] do you attend anglican or Never 2021 jain services? Do you [...] completed or the highest Martin, MEd, FRAME HAND, CAYDEN) degree you have received? Sex [...] with IV Contrast scheduled for. Thank you, [facility] Online Services for Referring Providers Appointment Office documented in this encounter Plan of Treatment Not on filedocumented as of this encounter Visit Diagnoses Not on filedocumented in this encounter Additional Health Concerns Assessment Noted Time PHQ-9 Depression Total Score: 18 04/28/2018 11:27 AM C DT documented as of this encounter Care Teams Funeral Home Makeup Artist Relationship Specialty Start Date End Date Chris Billings M.B.B.S., M.D. PCP - General Family Medicine 01/10/20 05/21/[address] [place] [address] [place] [phone] documented as of this encounter
--- OUTSIDE RECORDS SUMMARY | 2022-05-28 06:49 | XMS_ITS | Encounter Summary ---
:1945 Author Organization [facility] Address [address] [place] [address] Care Team Providers Name Role Phone Chris Billings M.D. 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 [facility] Procedures ECG 12 Lead [address] [place] [address] Referral ID Status Reason Start Date Expiration Date Visits Requ ested Visits Authorized [id number] Closed 12/16/2019 12/15/2020 1 1 Encounter Details Date Type Department Care Team Description 01/20/2020 Hospital Department of Ailyn Sims Atherosc lerotic Heart Encounter Laboratory [place] Disease [place] Medicine in [address] Coronary Artery With [place], [place], [place] Other Forms An maren [place] [phone] Pectoris (Angina [address] [phone] Equivalent) ([facility]) [place] (Work) [address] [phone] Social History Tobacco Use Types Packs/Day Years [...] do you attend gnosticist or Never 2021 christianity services? Do you [...] completed or the highest Martin, MEd, AIR EXPORT AGENT, CAY[place]) degree you have received? Sex [...] once Atherosclerotic Heart for 1 dose. 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 Equivalent) ([facility]) documented in this encounter Results ECG 12 Lead (01/20/2020 8:49 AM CDT) P athologist Signature Ventricular Rate 66 BPM MUSE ECG/Min FL Interval 158 ms MUSE QRSD Interval 96 ms MUSE QT Interval 444 ms MUSE QTC Interval 465 ms MUSE P [place] 2 degrees MUSE R [place] -61 degrees MUSE T Wave [place] -25 degrees MUSE Specimen Anatomical Collection Method [...] encounter Visit Diagnoses Diagnosis Atherosclerotic Heart Disease [place] Cor onary Artery With Other Forms Angina Pectoris (Angina Equivalent) (HCC) documented in this encounter Additional Health Concerns Assessment Noted Time PHQ-9 Depression Total Score: 18 04/28/2018 11:27 AM C DT documented as of this encounter Care Teams Classroom Paraprofessional Relationship Specialty Start Date End Date Chris Billings M.B.B.S., M.D. PCP - General Family Medicine 01/10/20 05/21/[address] [place] [address] [place] [phone] documented as of this encounter
--- OUTSIDE RECORDS SUMMARY | 2022-05-28 06:49 | XMS_ITS | Encounter Summary ---
:1945 Author Organization [facility] Address [address] [place] [address] Care Team Providers Name Role Phone Chris Billings M.D. Primary Care Provider [phone] Encounter Details Date Type Department Care Team Description 02/10/2020 Clinical Communication Department of Chris [facility], Lorri Tavarez, Clinic, in [place] 300 [facility] 300 [facility] [place] [phone] Social History Tobacco Use Types Packs/Day Years [...] have completed or the highest Martin, MEd, STRATEGIC PARTNERSHIP REPRESENTATIVE, CAYDEN) degree you have received? Sex Assigned at Date Recorded Male 05/21/2018 2:34 PM CDT documented as of this encounter Miscellaneous Notes Telephone Encounter - Kira Sorenson - 02/10/2020 11:35 AM CDT Reason for Communication: Patient calling, has had continuous diarrhea for about a month. Has discussed with GI in [place] and has appts down there in February [...] documented as of this encounter Care Teams Post Tensioning Ironworker Helper Relationship Specialty Start Date End Date Chris Billings M.B.BDenise, MDahlia. PCP - General Family Medicine 01/10/20 05/21/[address] [place], [place] [address], [place] [address] documented as of this encounter
--- OUTSIDE RECORDS SUMMARY | 2022-05-28 06:49 | XMS_ITS | Encounter Summary ---
:[address] [facility] Address [address] [place] [address] Care Team Providers Name Role Phone Chris Billings M.D. Primary Care Provider +[phone] Encounter Details Date Type Department Care Team Description 02/27/2020 Orders Only Division of Parminder, Diarrhea (Prima ry Dx) Gastroenterology in [place], [place] [address] [facility] [address] [place] [address] [phone] Social History Tobacco Use Types Packs/Day Years [...] do you attend scientology or Never 2021 hinduism services? Do you [...] have completed or the highest Martin, MEd, HAIR SAMPLE MATCHER, CAYDEN) degree you have received? Sex [...] documented as of this encounter Care Teams Latent Print Examiner Relationship Specialty Start Date End Date Chris Billings M.B.BDenise, MDahlia. PCP - General Family Medicine 01/10/20 05/21/[address] [place] [address] [place] [phone] documented as of this encounter
--- OUTSIDE RECORDS SUMMARY | 2022-05-28 06:49 | XMS_ITS | Encounter Summary ---
:1945 Author Organization [facility] Address [address] [place] [address] Care Team Providers Name Role Phone Chris Billings M.D. Primary Care Provider [phone] Reason for Visit Appointment Request (Routine) - Closed Specialty Diagnoses / Referred By Contact Referred To Procedures Contact Gastroenterology and Diagnoses Pancreatitis Chronic (HCC) Emil Zurita Hepatology [place] [address] [place] [address] Referral ID Status Reason Start Date Expiration Date Visits Requ ested Visits Authorized [id number] Closed 02/02/2020 02/01/2021 1 1 Encounter Details Date Type Department Care Team Description 03/13/2020 Office Visit Division of Greyson Zurita Ch Gastroenterology in [place] (HCC) (Primary Dx) [place], [place] [address] [place] [address] [address] [place] [phone] Social History Tobacco Use Types Packs/Day Years [...] have completed or the highest Martin, MEd, FUGITIVE DETECTIVE, CAYDEN) degree you have received? Sex Assigned [...] in the morning. Stool consistency is between [place] 5 in 6. There is no blood [...] PM CDT 25-Hydroxy D 30 ng/mL 03/14/2020 [facility] Total 2:46 PM CDT Comment: ----REFERENCE VALUE---- 25-HYDROXY D TOTAL (D2+D3) Optimum level s in the healthy population are 20-50, patients with bone disease may benefit from higher levels within this r stan. ----ADDITIONAL INFORMATION---- This test was developed and its performa nce characteristics determined by [facility] in a manner consistent with CLIA requirements. This test has not been cleared or approved by the [place] d and Drug Administration. Specimen Anatomical Collection Method Collection Time Receive d Time (Source) Location / / Volume Laterality Blood (Blood, 03/13/2020 12:19 03/14/2020 7:41 Venous) PM CDT AM CDT Emil Zurita M.D. LAB BLOOD ADD-ON Performing Organization Address City/[facility] Code Phon e Number [facility] [address] AYALA [address] CENTER [facility] [place] [address] Laboratory Medicine and Pathology [address] [...] City/[facility]/ZIP Code Phon e Number [facility] - [address] [place] [address] [address] [facility] [place] [place] [address] Laboratories-[facility] [address] documented in this encounter Visit Diagnoses Diagnosis Pancreatitis Chronic (HCC) - Primary documented in this encounter Additional Health Concerns Assessment Noted Time PHQ-9 Depression Total Score: 18 04/28/2018 11:27 AM C DT documented as of this encounter Care Teams Green Chain Marker Relationship Specialty Start Date End Date Chris Billings M.B.B.S., M.D. PCP - General Family Medicine 01/10/20 05/21/[address] [place] [phone] documented as of this encounter
--- OUTSIDE RECORDS SUMMARY | 2022-05-28 06:50 | XMS_ITS | Encounter Summary ---
:1945 Author Organization [facility] Address [address] [place] [address] Care Team Providers Name Role Phone Chris Billings M.D. Primary Care Provider [phone] Encounter Details Date Type Department Care Team Description 01/07/2020 Clinical Communication [facility] in [place] [address] [place] [phone] Social History Tobacco Use Types Packs/Day Years [...] do you attend amish or Never 2021 nondenominational services? Do you [...] have completed or the highest Martin, MEd, CALCULATOR OPERATOR, CAYDEN) degree you have received? Sex [...] his primary provider place a referral to [facility] to repeat A Stress Echo and also a Cardiopulmonary (V02) Exercise test after being on new cardiology medications for 1 month following abnormal findings on 11/2019. Please call patient once referral is complete so he can contact [facility] to schedule testing PLAN Disposition/Recommendation: notified provider and awaiting recommendations Information/Education: patient/caller able to teach back Caller agreeable to plan of care: yes The following references were used: other per patient Telephone Encounter - Shanon Glover - 01/07/2020 8:53 AM CDT Reason for Communication: Patient is calling in and stated he was seen in [place] in [facility] and that he was told to set [...] as of this encounter Care Teams Stock Saw Operator Relationship Specialty Start Date End Date Chris Billings M.B.B.S., MDahlia. PCP - General Family Medicine 01/10/20 05/21/[address] [place] [address] [place] [phone] documented as of this encounter
--- OUTSIDE RECORDS SUMMARY | 2022-05-28 06:50 | XMS_ITS | Encounter Summary ---
:1945 Author Organization [facility] Address [address] [place] [address] Care Team Providers Name Role Phone Ewa Alejandro M.D. Primary Care Provider [phone] Reason for Visit Reason Comments Pancreas Results DEXA scan, glucose, CBC Encounter Details Date Type Department Care Team Description 11/04/2019 Clinical Division of Keisha Lpoez Pancreas; Resu lts Communication Gastroenterology in , JACKHAMMER SPLITTER OPERATOR, (DEXA s can, [place], [place] C.N.P., M.S.N. glucose, CBC ) [address] [place] [address] [address] [place] [address] [phone] Social History Tobacco Use Types Packs/Day Years [...] have completed or the highest Martin, MEd, CLERICAL SUPERVISOR, CAYDEN) degree you have received? Sex Assigned at Date Recorded Male 05/21/2018 2:34 PM CDT documented as of this encounter Miscellaneous Notes Telephone Encounter - Daphney Batista, RMauroN. - 11/04/2019 12:29 PM CHARGE COORDINATOR SUBJECTIVE CHIEF COMPLAINT / REASON FOR CALL [...] Patient stated he has already seen an Sample Maker Original and has plans to follow with them. Additionally he will follow up with PCP regarding anemia concerns. Ordered by: Keisha Lopez CNP Date performed: 10/20/2019 Pending results: None Disposition/Recommendation: per the above Information/Education: patient/caller able to teach back Caller agreeable to plan of care: yes GE COORDINATOR documented in this encounter Plan of Treatment Not on filedocumented as of this encounter Visit Diagnoses Not on filedocumented in this encounter Additional Health Concerns Assessment Noted Time PHQ-9 Depression Total Score: 18 04/28/2018 11:27 AM C DT documented as of this encounter Care Teams Tobacco Sprayer Relationship Specialty Start Date End Date Ewa Alejandro M.D. PCP - General 03/13/17 01/09/[address], [place] [address] documented as of this encounter
--- OUTSIDE RECORDS SUMMARY | 2022-05-28 06:50 | XMS_ITS | Encounter Summary ---
:1945 Author Organization [facility] Address [address] [place] [address] Care Team Providers Name Role Phone Chris Billings M.D. Primary Care Provider [phone] Encounter Details Date Type Department Care Team Description 01/13/2020 Hospital Encounter Department of Chris Billings more Mellitus Laboratory Medicine [place]ri Shen, Type 2 (HCC) in [place] [address] [facility] [place] [phone] Social History Tobacco Use Types Packs/Day [...] do you attend adventism or Never 2021 catholic services? Do you [...] have completed or the highest Martin, MEd, DIVISION PLANT ENGINEER, CAYDEN) degree you have received? Sex [...] once Atherosclerotic Heart for 1 dose. 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) ([facility]), Diabetes Mellitus Type 2 ([facility]), Hypertension Essential Primary lisinopril Take 1 [...] Mellitus Results for this CDT Type 2 ([facility]) procedure are i n the results [...] Code Phon e Number [facility]- [address] [place] [address] [facility] [place] [address] System in [place] [address] documented in this encounter Visit Diagnoses Diagnosis Diabetes Mellitus Type 2 (HCC) documented in this encounter Additional Health Concerns Assessment Noted Time PHQ-9 Depression Total Score: 18 04/28/2018 11:27 AM C DT documented as of this encounter Care Teams Rn Lvn Relationship Specialty Start Date End Date Chris Billings M.B.B.S., M.D. PCP - General Family Medicine 01/10/20 05/21/[address] [place] [address] [place] [phone] documented as of this encounter
--- OUTSIDE RECORDS SUMMARY | 2022-05-28 06:50 | XMS_ITS | Encounter Summary ---
:1945 Author Organization [facility] Address [address] [place] [address] Care Team Providers Name Role Phone Ewa Alejandro M.D. Primary Care Provider [phone] Reason for Visit Reason Comments Follow-up 6 month bladder cancer surve illance Outpatient (Routine) - Closed Specialty Diagnoses / Procedures Referred By Contact Refer red To Contact Diagnoses Personal History Of Malignant Neoplasm Of Bladder Prasanna Bernal M.D. [facility] Region Procedures Cystoscopy (specific provider) [address] [place] [address] Referral ID Status Reason Start Date Expiration Date Visits Requ ested Visits Authorized [id number] Closed 05/24/2019 05/23/2020 1 1 Encounter Details Date Type Department Care Team Description 11/25/2019 Office Visit Department of Urology Prasanna Bernal Per sonal History Of in [place] M.D. Malignant Neoplasm Of [address] [facility] [place] [phone] Social History Tobacco Use Types Packs/Day Years [...] do you attend jewish or Never 2021 shinto services? Do you belong to any clubs or No 10/09/2021 organizations such as jewish groups, unions, impok or athletic groups, or school groups? How [...] have completed or the highest Martin, MEd, BYPRODUCTS PUMP OPERATOR, CAYDEN) degree you have received? Sex Assigned at Date Recorded Male 05/21/2018 2:34 PM CDT documented as of this encounter Last Filed Vital Signs Vital Sign Reading Time Taken Comments Blood Pressure 143/72 11/25/2019 8:04 AM SUPERVISOR FLOOR ASSEMBLY Pulse 68 11/25/2019 8:04 AM SUPERVISOR FLOOR ASSEMBLY Temperature 36.7 ??C (98.1 ??F) 11/25/2019 8:04 AM SUPERVISOR FLOOR ASSEMBLY Respiratory Rate - - Oxygen Saturation - [...] by: Prasanna Bernal M.D. 11/25/19 8:33 AM SUPERVISOR FLOOR ASSEMBLY RVISOR FLOOR ASSEMBLY documented in this encounter Plan of Treatment Not on filedocumented as of this encounter Results Cytology Non-EXTENSION AGENT (Scheduled) (06/06/2020 1:33 PM CDT) Component Value Ref Test Analysis Performed At [facility] gist Range Method Time Signature 06/07/2020 DTL 2:47 PM CDT Report Dafne Rodriguez M.D. [id number] 06/07/2020 DTL electronically I verify that I [...] [facility] - [address] [place], [place] [address] [facility] [place] [place] [address] Laboratories-[facility] [address] documented in this encounter Visit Diagnoses Diagnosis Personal History Of Malignant Neoplasm O f Bladder documented in this encounter Additional Health Concerns Assessment Noted Time PHQ-9 Depression Total Score: 18 04/28/2018 11:27 AM C DT documented as of this encounter Care Teams Election Watcher Relationship Specialty Start Date End Date Ewa Alejandro M.D. PCP - General 03/13/17 01/09/20 [address] [place] [phone] documented as of this encounter
--- OUTSIDE RECORDS SUMMARY | 2022-05-28 06:50 | XMS_ITS | Encounter Summary ---
:1945 Author Organization [facility] Address [address] [place] [address] Care Team Providers Name Role Phone Ewa Alejandro M.D. Primary Care Provider [phone] Reason for Visit Outpatient (Routine) - Closed Specialty Diagnoses / Procedures Referred By Contact Refer red To Contact Nutrition Diagnoses Diabetes Mellitus Type 2 With Diabetic Neuropathy (HCC) Debbie Marquis M.D. [facility] [address] [place] [address] Referral ID Status Reason Start Date Expiration Date Visits Requ ested Visits Authorized [id number] Closed 10/21/2019 10/20/2020 1 1 Encounter Details Date Type Department Care Team Description 11/01/2019 Clinical Support Department of Debbie Marquis M.D . Diabetes Mellitus Nutrition in [facility], Alysha Arias R.N., [address] [address] Type 2 With Diabetic Alexia, Neuropathy (HCC ) [place] [address] [place] [phone] Social History Tobacco Use Types Packs/Day Years [...] do you attend jewish or Never 2021 uatsdin services? Do you belong to any clubs or No 10/09/2021 organizations such as jewish groups, unions, [email or web address] or athletic groups, or school groups? How [...] have completed or the highest Martin, MEd, BREAKER MACHINE TENDER, CAYDEN) degree you have received? [...] Time spent with patient (minutes): 75 Minutes TRIC APPLIANCE INSTALLER documented in this encounter Plan of Treatment Not on filedocumented as of this encounter Visit Diagnoses Diagnosis 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) documented in this encounter Additional Health Concerns Assessment Noted Time PHQ-9 Depression Total Score: 18 04/28/2018 11:27 AM C DT documented as of this encounter Care Teams Player Services Representative Relationship Specialty Start Date End Date Ewa Alejandro M.D. PCP - General 03/13/17 01/09/20 [address] [phone] documented as of this encounter
--- OUTSIDE RECORDS SUMMARY | 2022-05-28 06:50 | XMS_ITS | Encounter Summary ---
:1945 Author Organization [facility] Address [address] [place] [address] Care Team Providers Name Role Phone Chris Billings M.D. Primary Care Provider [phone] Encounter Details Date Type Department Care Team Description 01/13/2020 Hospital Encounter Department of Chris Billings more Mellitus Laboratory Medicine Lorri Shen, Type 2 (HCC) in [place] [address] [facility] [place] [phone] Social History Tobacco Use Types Packs/Day [...] have completed or the highest Martin, MEd, GRADUATE ADVISOR, CAYDEN) degree you have received? Sex [...] once Atherosclerotic Heart for 1 dose. 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 Atherosclerotic Heart Disease [place] [...] Equivalent) ([facility]), Diabetes Mellitus Type 2 ([facility]), Hypertension Essential Primary lisinopril Take 1 [...] Albumin, Random, Urine (01/13/2020 8:21 AM CDT) [facility] Method Time Signature Microalbumin 2002.0 mg/L 01/13/2020 [...] e Number [facility]- [address] [place] [address] [facility] [place] [address] System in [place] [address] documented in this encounter Visit Diagnoses Diagnosis Diabetes Mellitus Type 2 (HCC) documented in this encounter Additional Health Concerns Assessment Noted Time PHQ-9 Depression Total Score: 18 04/28/2018 11:27 AM C DT documented as of this encounter Care Teams Research Assistant Member Relationship Specialty Start Date End Date Chris Billings M.B.B.S., M.D. PCP - General Family Medicine 01/10/20 05/21/[address] [place] [address] [place] [address] documented as of this encounter
--- OUTSIDE RECORDS SUMMARY | 2022-05-28 06:50 | XMS_ITS | Encounter Summary ---
:1945 Author Organization [facility] Address [address] [place] [address] Care Team Providers Name Role Phone Ewa Alejandro M.D. Primary Care Provider [phone] Reason for Visit Reason Comments Treatment Questions Encounter Details Date Type Department Care Team Description 12/12/2019 Clinical Communication Division of Natasha Corrales ment Questions [facility] B, R.N. [facility] [phone] [facility] [place], in (Work) [place], [place] [address] [place] [address] Social History Tobacco Use Types Packs/Day Years [...] do you attend caodaism or Never 2021 evangelical services? Do you [...] have completed or the highest Martin, MEd, ARMHOLE BASTER HAND, CAYDEN) degree you have received? Sex [...] also because his granddaughter has been in [place] two weeks ago. His granddaughter has no [...] documented as of this encounter Care Teams Job Site Superintendent Relationship Specialty Start Date End Date Ewa Alejandro M.D. PCP - General 03/13/17 01/09/20 [address] [place] [phone] documented as of this encounter
--- OUTSIDE RECORDS SUMMARY | 2022-05-28 06:50 | XMS_ITS | Encounter Summary ---
:1945 Author Organization [facility] Address [address] [place] [address] Care Team Providers Name Role Phone Ewa Alejandro M.D. Primary Care Provider [phone] Encounter Details Date Type Department Care Team Description 11/16/2019 Hospital Encounter Department of Radiology Clifford Bal Cough Chronic in [facility] Ewa mullen M.D. [address] [place] [address] [address] [place] [address] [place], [place] [phone] [address] Social History Tobacco Use Types Packs/Day [...] completed or the highest Martin, MEd, MAINTENANCE MGR, CAYDEN) degree you have received? Sex Assigned at Date Recorded Male 05/21/2018 2:34 PM CDT documented as of this encounter Medications at Time of Discharge Medication Sig Dispensed Refills Start Date End Date atorvastatin Take 80 mg by mouth 0 (for_LIPITOR) 80 mg daily. tablet clopidogreL (PLAVIX) 75 Take 1 [...] SYRINGE-NEEDLE,INSULIN, 0 0.5 ML (INSULIN SYRINGE MISC) insulin aspart U-100 Inject 20-25 Units 0 05/06/2020 (NovoLOG FlexPen) 100 under the skin as unit/mL injection needed. With meals insulin glargine Inject 20 Units 0 01/31/201504/2020 (LANTUS) 100 unit/mL under the skin at injection bedtime. losartan (for_COZAAR) Take 50 mg by mouth 0 10/1305/06/2020 100 mg tablet daily. iwxytn-apkwkflv-gekerxi Take 2 capsules by 240 capsule 3 [...] 05/01/2020 reader (FREESTYLE ILEANA 14 DAY READER) [facility] flash glucose sensor Use as directed. 6 [...] this AND LATERAL 2 (most inpatients AM REAL ESTATE SUBAGENT procedure are in VIEWS and all the results outpatients) section. documented in this encounter Results DX Chest AP or PA and Lateral 2 Views (11/16/2019 8:25 AM REAL ESTATE SUBAGENT) Anatomical Region Laterality Modality Chest, Thoracic RST LOS, Thoracic ARZ LOS, Thoracic N/A Digital Radiography FLA LOS Specimen (Source) Anatomical Collection Method Collection Time Re ceived Time Location / / Volume Laterality 11/16/2019 8:31 AM REAL ESTATE SUBAGENT Impressions 11/16/2019 8:32 AM REAL ESTATE SUBAGENT No acute radiographic abnormality. Narrative 11/16/2019 8:32 AM REAL ESTATE SUBAGENT EXAM: DX CHEST AP OR PA AND [...] documented as of this encounter Care Teams Executive Administrative Asst Relationship Specialty Start Date End Date Ewa Alejandro M.D. PCP - General 03/13/17 01/09/[address] [address] documented as of this encounter
--- OUTSIDE RECORDS SUMMARY | 2022-05-28 06:50 | XMS_ITS | Encounter Summary ---
:1945 Author Organization [facility] Address [address] [place] [address] Care Team Providers Name Role Phone Ewa Alejandro M.D. Primary Care Provider [phone] Reason for Visit Outpatient (Routine) - Closed Specialty Diagnoses / Referred By Contact Referred To Contact Procedures Allergy and Immunology Diagnoses Chronic Cough Shortness Of Breath Asthma Extrinsic Moderate (HCC) [facility] [address] [place] [address] Referral ID Status Reason Start Date Expiration Date Visits Requ ested Visits Authorized [id number] Closed 12/15/2019 12/14/2020 1 1 Encounter Details Date Type Department Care Team Description 12/16/2019 Comprehensive Visit Division of Karley Gillespie Asthma Mild Persistent (HCC) (Primary Dx); Allergic Diseases Pato Strong Abnormal Allergy Skin Test; in [address] Hypertension Essential Primary; [place], [place] Diabetes Mellitus Type 2 Wit h Diabetic Neuropathy (HCC) [address] [facility] [address] [place], [place] [phone] [address] (Work) [phone] Social History Tobacco Use Types Packs/Day Years [...] do you attend mormon or Never 2021 christian services? Do you belong to any clubs or No 10/09/2021 organizations such as mormon groups, unions, [employer] or athletic groups, or school groups? How [...] have completed or the highest Martin, MEd, BUFFET WAITER/WAITRESS, CAYDEN) degree you have received? Sex Assigned [...] male remote smoker with history of Agent [place] exposure in 1967, untreated sleep apnea, diabetes, [...] elevated at 64 ppb. [facility] was positive to dust mite, negative to trees, grasses, weeds, molds, cat, dog. Review of environmental history is significant for the absence of any secondhand smoke exposure. There are no pets in the home environment. Bedding is washed at least once weekly. There is brwo-en-jhofhuvdbnzoi in the bedroom. MEDICAL HISTORY Past Medical [...] injection LW Addl Instr:Indicated for: Diabetes ??? byzyvh-gyojsahq-fncbjxq (CREON) 6,000-19,000-30,[address] capsule Take [...] as of this encounter Care Teams Template Fitter Relationship Specialty Start Date End Date Ewa Alejandro M.D. PCP - General 03/13/17 01/09/[address] [address] documented as of this encounter
--- OUTSIDE RECORDS SUMMARY | 2022-05-28 06:50 | XMS_ITS | Encounter Summary ---
:[address] [facility] Address [address] [place] [address] Care Team Providers Name Role Phone Ewa Alejandro M.D. Primary Care Provider [phone] Encounter Details Date Type Department Care Team [...] do you attend presybeterian or Never 2021 mormonism services? Do you [...] or the highest Martin, MEd, STRATEGIC PARTNERSHIP MANAGER, CAYDEN) degree you have received? Sex Assigned at Date Recorded Male 05/21/2018 2:34 PM CDT documented as of this encounter Plan of Treatment Not on filedocumented as of this encounter Procedures Procedure Name Priority Date/Time Associated Diagnosis Comme nts UROLOGY IMAGE EXAM Routine 11/25/2019 5:55 AM Res ults for this MAINTENANCE ENGINEER OIL FIELD procedure are i n the results section. documented in this encounter Results CYSTOSCOPY-Urology Image Exam (11/25/2019 5:55 AM MAINTENANCE ENGINEER OIL FIELD) Specimen (Source) Anatomical Collection Method Collection Time Re ceived Time Location / / Volume Laterality 11/25/2019 5:54 AM MAINTENANCE ENGINEER OIL FIELD Narrative [facility] - 11/25/2019 8:23 AM MAINTENANCE ENGINEER OIL FIELD This order has been created and auto-finalized [...] documented as of this encounter Care Teams Baseboard Heating Installer Relationship Specialty Start Date End Date Ewa Alejandro M.D. PCP - General 03/13/17 01/09/[address] [place] [address] documented as of this encounter
--- OUTSIDE RECORDS SUMMARY | 2022-05-28 06:50 | XMS_ITS | Encounter Summary ---
:1945 Author Organization [facility] Address [address] [place] [address] Care Team Providers Name Role Phone Ewa Alejandro M.D. Primary Care Provider [phone] Encounter Details Date Type Department Care Team Description 10/28/2019 Clinical Communication Department of Family Kirill Torres [facility], Ewa Barclay, Clinic, in [place] [address] [place] [phone] Social History Tobacco Use Types Packs/Day Years [...] do you attend baptist or Never 2021 alevism services? Do you [...] have completed or the highest Martin, MEd, NUCLEAR OPERATIONS SPECIALIST, CAYDEN) degree you have received? Sex Assigned at Date Recorded Male 05/21/2018 2:34 PM CDT documented as of this encounter Miscellaneous Notes Telephone Encounter - Ewa Alejandro M.D. - 10/28/2019 5:05 PM COLUMNIST He is on Plavix after cerebrovascular event several years ago. It will be fine for him to hold Plavix prior to an endoscopy. If we know when the procedure is, we can guide him as far as when to start holding. MNIST Telephone Encounter - Natasha Decker - 10/28/2019 [...] symptom based concerns): Action Needed: Please send Purchase permission for patient so they can schedule him. Name of Medication (if relevant): MNIST documented in this encounter Plan of Treatment Not on filedocumented as of this encounter Visit Diagnoses Not on filedocumented in this encounter Additional Health Concerns Assessment Noted Time PHQ-9 Depression Total Score: 18 04/28/2018 11:27 AM C DT documented as of this encounter Care Teams Awning Maker And Installer Relationship Specialty Start Date End Date Ewa Alejandro M.D. PCP - General 03/13/17 01/09/20 [address], [place] [address] documented as of this encounter
--- OUTSIDE RECORDS SUMMARY | 2022-05-28 06:50 | XMS_ITS | Encounter Summary ---
:1945 Author Organization [facility] Address [address] [place] [address] Care Team Providers Name Role Phone Ewa Alejandro M.D. Primary Care Provider [phone] Reason for Visit Reason Comments Allergy Testing skin testing Encounter Details Date Type Department Care Team Description 12/15/2019 Clinical Support Division of Andres Sims M.D. [address] [place] [phone] Cough Chronic; Allergic Diseases Katerin Rasmussen, RMauroNMauro [address] [place] [phone] Shortness Of Breath; in [place], Deena Cai R.N. Asthma Extrinsic Moderate ([facility]) [address] [phone] Social History Tobacco Use Types Packs/Day Years [...] do you attend gnosticism or Never 2021 shinto services? Do you [...] have completed or the highest Martin, MEd, BODY WORK AUTO TRIMMER, CAYDEN) degree you have received? Sex Assigned at Date Recorded Male 05/21/2018 2:34 PM CDT documented as of this encounter Procedure Notes Josiah Ocasio M.D. - 12/15/2019 12:00 PM CDTAssociated Order(s): ALI BASIC SKIN TEST; ALI NORTHERN SKIN TEST Panel Skin Tests Clinical Support from 12/15/2019 in Division of Allergic Diseases in [place], [place] Controls Prick Control 0 Histamine (15 min W/F) 5x6f Glycerine (15 min W/F) 0 Basic Panel Cat Hair 0 Cockroach mix (Malawian & Kyrgyz) 0 Dog AP 0 D.F. Mite 5x5f [...] White 0 Shashank, White 0 Birch 0 Guernsey, Red 0 Sweetwater, Eastern 0 Elm, Malawian 0 Maple 0 Duncan, Black 0 Milton 0 North Anson, White 0 Snyder, Malawian 0 Bermuda 0 Kentucky Blue 0 Orchard 0 Zhang 0 Kochia 0 Garcia's Quarters 0 Page Elder, Burweed 0 Mugwort, Common 0 Plantain, Burkinan 0 Rough Pigweed 0 Italian thistle 0 Short Ragweed 0 Bolckow, Sheep Red 0 Skin test positive. Clinical correlation recommended and allergy consult, if clinically indicated. documented in this encounter Plan of Treatment Not on filedocumented as of this encounter Procedures Procedure Name Priority Date/Time Associated Diagnosis Comme nts ALI NORTHERN SKIN Routine 12/15/2019 12:00 PM Cough Senior Pricing Analyst hilary Results for this TEST CDT Shortness [...] in Di vision of Allergic Diseases in [place], [place] Controls Prick Control ??0 Histamine (15 min W/F) ??5x6f Glycerine (15 min W/F) ??0 Basic Panel Cat Hair ??0 Cockroach mix (Malawian & Kyrgyz) ??0 Dog AP ??0 D.F. Mite ??5x5f D. P Mite ??6x7f Horse ??0 Alternaria Alternata ??0 Aspergillus Fumigatus ??0 Bipolaris Sorokiniana ??0 Chaetomium Globosum ??0 Curvularia Spicifera (Drechstera Spidfer a) ??0 Epicoccum ??0 Fusarium ??0 Geotrichum ??0 Helminthosporium ??0 Hormodendrum/Clad (Cladostorium Cladospo rioides) ??0 Mucor Racemosus ??0 Penicillium Mix ??0 Phoma Herbarum ??0 Pullularia ??0 Rhizopus Stolonifer ??0 Stemphylium Solani ??0 Northern Panel [place], White ??0 Shashank, White ??0 Birch ??0 Guernsey, Red ??0 Sweetwater, Eastern ??0 Elm, Malawian ??0 Maple ??0 Duncan, Black ??0 Milton ??0 North Anson, White ??0 Snyder, Malawian ??0 Bermuda ??0 Kentucky Blue ??0 Orchard ??0 Zhang ??0 Kochia ??0 Garcia's Quarters ??0 Page Elder, Burweed ??0 Mugwort, Common ??0 Plantain, Burkinan ??0 Rough Pigweed ??0 Italian thistle ??0 Short Ragweed ??0 Bolckow, Sheep Red ??0 Skin test positive. Clinical [...] in Di vision of Allergic Diseases in [place], [place] Controls Prick Control ??0 Histamine (15 min W/F) ??5x6f Glycerine (15 min W/F) ??0 Basic Panel Cat Hair ??0 Cockroach mix (Malawian & Kyrgyz) ??0 Dog AP ??0 D.F. Mite ??5x5f [...] White ??0 Shashank, White ??0 Birch ??0 Guernsey, Red ??0 Sweetwater, Eastern ??0 Elm, Malawian ??0 Maple ??0 Duncan, Black ??0 Milton ??0 North Anson, White ??0 Snyder, Malawian ??0 Bermuda ??0 Kentucky Blue ??0 Orchard ??0 Zhang ??0 Kochia ??0 Garcia's Quarters ??0 Page Elder, Burweed ??0 Mugwort, Common ??0 Plantain, Burkinan ??0 Rough Pigweed ??0 Italian thistle ??0 Short Ragweed ??0 Bolckow, Sheep Red ??0 Skin test positive. Clinical [...] as of this encounter Care Teams Public Health Dentist Relationship Specialty Start Date End Date Ewa Alejandro M.D. PCP - General 03/13/17 01/09/20 [address], [place] [address] documented as of this encounter
--- OUTSIDE RECORDS SUMMARY | 2022-05-28 06:50 | XMS_ITS | Encounter Summary ---
:1945 Author Organization [facility] Address [address] [place] [address] Care Team Providers Name Role Phone Ewa Alejandro M.D. Primary Care Provider [phone] Reason for Visit Reason Comments Treatment Questions Encounter Details Date Type Department Care Team Description 12/11/2019 Clinical Communication Division of [facility], Prachi bernardo Questions [facility] Internal D, R.N. Medicine, [place], [place] [address] [place] [address] Social History Tobacco Use Types Packs/Day Years [...] do you attend nondenominational or Never 2021 yarsanism services? Do you [...] completed or the highest Martin, MEd, COMMUNITY WORKER, CAYDEN) degree you have received? Sex [...] care: Yes The following references were used: [facility] novel coronavirus (COVID- 19) resources documented in this encounter Plan of Treatment Not on filedocumented as of this encounter Visit Diagnoses Not on filedocumented in this encounter Additional Health Concerns Assessment Noted Time PHQ-9 Depression Total Score: 18 04/28/2018 11:27 AM C DT documented as of this encounter Care Teams Spot Machine Operator Relationship Specialty Start Date End Date Ewa Alejandro M.D. PCP - General 03/13/17 01/09/20 [address], [place] [address] documented as of this encounter
--- OUTSIDE RECORDS SUMMARY | 2022-05-28 06:50 | XMS_ITS | Encounter Summary ---
:1945 Author Organization [facility] Address [address] [place] [address] Care Team Providers Name Role Phone Ewa Alejandro M.D. Primary Care Provider [phone] Encounter Details Date Type Department Care Team Description 11/18/2019 Hospital Encounter Department of Dolores, Personal History Of Laboratory Medicine Pato Mims Malignant Neoplasm Of in [place], [address] [facility] [address] [place] [phone] Social History Tobacco Use Types Packs/Day [...] do you attend spiritism or Never 2021 cheondoism services? Do you [...] or the highest Martin, MEd, ELECTRIC MOTOR FITTER, CAYDEN) degree you have received? Sex [...] mouth 0 10/1305/06/2020 100 mg tablet daily. jljqih-bdwpfzgu-hsvgilp Take 2 capsules by 240 capsule 3 [...] Priority Date/Time Associated Diagnosis Comme nts CYTOLOGY NON-AIRCRAFT POWER PLANT ASSEMBLER Routine 11/18/2019 9:01 AM Personal History O f Results for this (SCHEDULED) PROCUREMENT TECHNICIAN Malignant Neoplasm procedure are in Of Bladder the results section. documented in this encounter Results Cytology Non-AIRCRAFT POWER PLANT ASSEMBLER (Scheduled) (11/18/2019 9:01 AM PROCUREMENT TECHNICIAN) Component Value Ref Test Analysis Performed At [facility] gist Range Method Time Signature 11/19/2019 [facility] 10:23 AM PROCUREMENT TECHNICIAN Fixative 50% REAGENT 11/19/2019 [facility] ALCOHOL 10:23 AM PROCUREMENT TECHNICIAN Report Brady Goodrich MD 11/19/2019 [facility] electronically I verify that I have examined all relevant slides/ma terials 10:23 AM signed by for the specimen(s) and rendered or confirmed the diagnosis. PROCUREMENT TECHNICIAN Gross Description Received 80 11/19/2019 [facility] ml of cloudy 10:23 AM yellow PROCUREMENT TECHNICIAN alcohol fixed fluid. Collection VOIDED 11/19/2019 [facility] Procedure 10:23 AM PROCUREMENT TECHNICIAN Source A. Urine, 11/19/2019 [facility] Clean Catch, 10:23 AM voided PROCUREMENT TECHNICIAN Clinical History Z85.51 11/19/2019 [facility] 10:23 AM PROCUREMENT TECHNICIAN Interpretation A. 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 10:23 A M PROCUREMENT TECHNICIAN Specimen Anatomical Collection Method Collection Time Receive d Time (Source) Location / / Volume Laterality Varies (Urine, 11/18/2019 9:01 AM 020 7:13 Clean Catch) PROCUREMENT TECHNICIAN AM PROCUREMENT TECHNICIAN Narrative This result has an attachment that is no t available. Prasanna Bernal M.D. LAB SURG PATH ORDERABLES Performing Organization Address City/State/ZIP Code Phon e Number [facility]- [address] [place] [address] [facility] [place] [address] [facility] [address] [facility] documented in this encounter Visit Diagnoses Diagnosis Personal History Of Malignant Neoplasm O f Bladder documented in this encounter Additional Health Concerns Assessment Noted Time PHQ-9 Depression Total Score: 18 04/28/2018 11:27 AM C DT documented as of this encounter Care Teams President Financial Institution Relationship Specialty Start Date End Date Ewa Alejandro M.D. PCP - General 03/13/17 01/09/20 [address] [place] [address] documented as of this encounter
--- OUTSIDE RECORDS SUMMARY | 2022-05-28 06:50 | XMS_ITS | Encounter Summary ---
:1945 Author Organization [facility] Address [address] [place] [address] Care Team Providers Name Role Phone Ewa Alejandro M.D. Primary Care Provider [phone] Reason for Referral Outpatient (Routine) - Closed Specialty Diagnoses / Procedures Referred By Contact Refer red To Contact Diagnoses Chronic Cough Shortness Of Breath Asthma Extrinsic Moderate (HCC) Ailyn Sims M.D. [facility] Procedures Cardiopulmonary (VO2) Exercise Test [address] [place], [place] [address] Referral ID Status Reason Start Date Expiration Date Visits Requ ested Visits Authorized [id number] Closed 12/15/2019 12/14/2020 1 1 Outpatient (Routine) - Closed Specialty Diagnoses / Procedures Referred By Contact Refer anna To Contact Diagnoses Chronic Cough Shortness Of Breath Asthma Extrinsic Moderate (HCC) Ailyn Sims M.D. Procedures Echo Stress [address] [place], [place] [address] Referral ID Status Reason Start Date Expiration Date Visits Requ ested Visits Authorized [id number] Closed 12/15/2019 12/14/2020 1 1 Reason for Visit Outpatient (Routine) - Closed Specialty Diagnoses / Procedures Referred By Contact Refer red To Contact Diagnoses Chronic Cough Shortness Of Breath Asthma Extrinsic Moderate (HCC) Ailyn Sims M.D. Procedures Echo Stress [address] [place] [phone] Referral ID Status Reason Start Date Expiration Date Visits Requ ested Visits Authorized [id number] Closed 12/15/2019 12/14/2020 1 1 Encounter Details Date Type Department Care Team Description 12/15/2019 Hospital Department of Ailyn Sims Cough Ch ronic; Encounter Cardiovascular Pato Duque Shortness Of Breath; Diseases in [address] [place] [address] Asthma Extrinsic Moderate (HCC) [place], [place] [address] [facility] [address] [place], [place] [phone] [address] (Work) [phone] Social History Tobacco Use Types Packs/Day Years [...] do you attend christianity or Never 2021 hinduism services? Do you [...] of school Master's degree (e.g., [employer] [place], , 03/23/2019 you have completed or the highest Martin, MEd, TRUMPET TEACHER, CAYDEN) degree you have received? Sex [...] mouth 0 10/1305/06/2020 100 mg tablet daily. inbzyp-vwyjhraq-ztcavhh Take 2 capsules by 240 capsule 3 [...] (HCC) CARDIOPULMONARY (VO2) Routine 12/15/2019 3:33 Cough Incising Machine Operator hilary Results for this EXERCISE TEST PM CDT Shortness Of procedure are in Breath the results Asthma Extrinsic section. Moderate (HCC) documented in this encounter Results ECHO STRESS 2D WITH COLOR, LIMITED DOPPLER AND CONTRAST (12/15/2019 3:33 PM CDT) [facility] Method Time Signature Ejection Fraction 45 MC [...] effusion. For the complete report, see the [facility] [facility] Documents. Narrative 12/15/2019 4:55 PM CDT For the complete report, see the [employer] [facility] Documents. Final Impressions 1. Exercise echocardiogram positive [...] 8. O2 uptake data detailed in the [facility] Medical Record (Cardiopulmonary (VO2) Exercise Test). 9. [...] 8. O2 uptake data detailed in the [facility] Medical Record (Cardiopulmonary (VO2) Exercise Test). 9. [...] documented as of this encounter Care Teams Chargemaster Analyst Relationship Specialty Start Date End Date Ewa Alejandro M.D. PCP - General 03/13/17 01/09/[address] [address] documented as of this encounter
--- OUTSIDE RECORDS SUMMARY | 2022-05-28 06:50 | XMS_ITS | Encounter Summary ---
:1945 Author Organization [facility] Address [address] [place] [address] Care Team Providers Name Role Phone Ewa Alejandro M.D. 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 [facility] Procedures ECG 12 Lead [address] [place], [place] [phone] Referral ID Status Reason Start Date Expiration Date Visits Requ ested Visits Authorized [id number] Closed 12/16/2019 12/15/2020 1 1 Outpatient (Routine) - Closed Specialty Diagnoses / Procedures Referred By Contact Refer red To Contact Pulmonary Medicine Ailyn Sims [place] M.D. [address] [place] [address] Referral ID Status Reason Start Date Expiration Date Visits Requ ested Visits Authorized [id number] Closed 12/15/2019 12/14/2020 1 1 Reason for Visit Outpatient (Routine) - Closed Specialty Diagnoses / Procedures Referred By Contact Refer red To Contact Pulmonary Medicine Ailyn Sims [place] M.D. 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 Do you [...] have completed or the highest Martin, MEd, COMPRESSOR STATION OPERATOR, CAYDEN) degree you have received? Sex [...] mouth 0 10/1305/06/2020 100 mg tablet daily. lqxcku-ijsilhzo-szdmbda Take 2 capsules by 240 capsule 3 [...] once Atherosclerotic Heart for 1 dose. 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 flash glucose scanning Use as directed 1 each 0 09/18/20 18 05/01/2020 reader (FREESTYLE ILEANA 14 DAY READER) [facility] flash glucose sensor Use as [...] by mouth tabletIndications: daily. 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 Formal jtfn-nu-zccz consultation and consideration of need for cavity at catheterization will be deferred for 3 months due to COVID-19 constraints and patient's relatively stable hemodynamics. 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 PCP - General 03/13/17 01/09/[address], [place] [address] documented as of this encounter
--- OUTSIDE RECORDS SUMMARY | 2022-05-28 06:50 | XMS_ITS | Encounter Summary ---
:1945 Author Organization [facility] Address [address] [place] [address] Care Team Providers Name Role Phone Ewa Alejandro M.D. Primary Care Provider [phone] Reason for Referral Outpatient (Routine) - Closed Specialty Diagnoses / Procedures Referred By Contact Refer red To Contact Pulmonary Medicine Ailyn Sims [place] M.D. 200 [place] [address] Referral ID Status Reason Start Date Expiration Date Visits Requ ested Visits Authorized [id number] Closed 12/15/2019 12/14/2020 1 1 Outpatient (Routine) - Closed Specialty Diagnoses / Procedures Referred By Contact Refer red To Contact Diagnoses Chronic Cough Shortness Of Breath Asthma Extrinsic Moderate (HCC) Ailyn Sims M.D. Procedures Echo Stress [address] [place], [place] [address] Referral ID Status Reason Start Date Expiration Date Visits Requ ested Visits Authorized [id number] Closed 12/15/2019 12/14/2020 1 1 Outpatient (Routine) - Closed Specialty Diagnoses / Referred By Contact Referred To Contact Procedures Allergy and Immunology Diagnoses Chronic Cough Shortness Of Breath Asthma Extrinsic Moderate (HCC) Ailyn Sims [place] M.D. 200 [place] [address] Referral ID Status Reason Start Date Expiration Date Visits Requ ested Visits Authorized [id number] Closed 12/15/2019 12/14/2020 1 1 Outpatient (Routine) - Closed Specialty Diagnoses / Procedures Referred By Contact Refer red To Contact Pulmonary Medicine Diagnoses Chronic Cough [place] Felicita Mcneil M.D. [address] [place] [phone] Referral ID Status Reason Start Date Expiration Date Visits Requ ested Visits Authorized [id number] Closed 10/27/2019 10/26/2020 1 1 Reason for Visit Outpatient (Routine) - Closed Specialty Diagnoses / Procedures Referred By Contact Refer red To Contact Pulmonary Medicine Diagnoses Chronic Cough [place] Felicita Mcneil M.D. [address] [place] [phone] Referral ID Status Reason Start Date Expiration Date Visits Requ ested Visits Authorized [id number] Closed 10/27/2019 10/26/2020 1 1 Encounter Details Date Type Department Care Team Description 12/15/2019 Hospital Encounter Division of Ailyn Sims rtness Of Breath (Primary Dx); Pulmonary Medicine Pato Duque Cough Chronic; in [place], [facility] Asthma Extrinsic Moderate (HCC) [place], [place] 200 [facility] [address] [place], [place] [phone] (Wo rk) [address] [phone] Social History Tobacco Use Types Packs/Day Years [...] do you attend zoroastrian or Never 2021 oriental orthodox services? Do [...] completed or the highest Martin, MEd, PERSONAL SUPPORT WORKER, CAYDEN) degree you have received? Sex [...] mouth 0 10/1305/06/2020 100 mg tablet daily. qxxdlk-ufnfvvoj-kiaemum Take 2 capsules by 240 capsule 3 [...] is pending. Prior environmental exposures include Agent Griggs (1967), possible mild positional sleep apnea, and deconditioning. Patient did retire from [employer] 1 year ago and does report increased [...] DOPPLER AND CONTRAST (12/15/2019 3:33 PM CDT) [facility] gist Method Time Signature Ejection Fraction [...] effusion. For the complete report, see the [facility] [employer] Documents. Narrative 12/15/2019 4:55 PM CDT For the complete report, see the [employer] Documents. Final Impressions 1. Exercise echocardiogram positive [...] 8. O2 uptake data detailed in the [employer] Medical Record (Cardiopulmonary (VO2) Exercise Test). 9. [...] original. For the complete report, see the [employer] Documents. Final Impressions 1. Exercise echocardiogram positive [...] 8. O2 uptake data detailed in the [employer] Medical Record (Cardiopulmonary (VO2) Exercise Test). 9. [...] in Di vision of Allergic Diseases in [place], [place] Controls Prick Control ??0 Histamine (15 min W/F) ??5x6f Glycerine (15 min W/F) ??0 Basic Panel Cat Hair ??0 Cockroach mix (Ghanaian & Portuguese) ??0 Dog AP ??0 D.F. Mite ??5x5f [...] White ??0 Shashank, White ??0 Birch ??0 [place], Red ??0 Dillon, Eastern ??0 Elm, Ghanaian ??0 Maple ??0 Delhi, Black ??0 Benton ??0 Colorado, White ??0 Eagle River, Ghanaian ??0 Bermuda ??0 Kentucky Blue ??0 Orchard ??0 Zhang ??0 Kochia ??0 Garcia's Quarters ??0 Page Elder, Burweed ??0 Mugwort, Common ??0 Plantain, Guinean ??0 Rough Pigweed ??0 Burmese thistle ??0 Short Ragweed ??0 Palacios, Sheep Red ??0 Skin test positive. Clinical [...] 12/15/2019 in vision of Allergic Diseases in [place], [place] Controls Prick Control ??0 Histamine (15 min W/F) ??5x6f Glycerine (15 min W/F) ??0 Basic Panel Cat Hair ??0 Cockroach mix (Ghanaian & Portuguese) ??0 Dog AP ??0 D.F. Mite ??5x5f D. P Mite ??6x7f Horse ??0 Alternaria Alternata ??0 Aspergillus Fumigatus ??0 Bipolaris Sorokiniana ??0 Chaetomium Globosum ??0 Curvularia Spicifera (Drechstera Spidfer a) ??0 Epicoccum ??0 Fusarium ??0 Geotrichum ??0 Helminthosporium ??0 Hormodendrum/Clad (Cladostorium Cladospo rioides) ??0 Mucor Racemosus ??0 Penicillium Mix ??0 Phoma Herbarum ??0 Pullularia ??0 Rhizopus Stolonifer ??0 Stemphylium Solani ??0 Northern Panel Sweetwater, White ??0 Shashank, White ??0 Birch ??0 Springfield, Red ??0 Dillon, Eastern ??0 Elm, Ghanaian ??0 Maple ??0 Delhi, Black ??0 Benton ??0 Colorado, White ??0 Eagle River, Ghanaian ??0 Bermuda ??0 Kentucky Blue ??0 Orchard ??0 Zhang ??0 Kochia ??0 Garcia's Quarters ??0 Page Elder, Burweed ??0 Mugwort, Common ??0 Plantain, Guinean ??0 Rough Pigweed ??0 Burmese thistle ??0 Short Ragweed ??0 Palacios, Sheep Red ??0 Skin test positive. Clinical [...] [facility] 10:51 AM CDT SUITE BJT41-86% 1.41 L/s 12/29/2019 [facility] 10:51 AM CDT SUITE PEF PRE 7.01 L/s 12/29/2019 [facility] 10:51 AM CDT SUITE FET PRE 12.56 sec 12/29/2019 [facility] 10:51 AM CDT SUITE DLCO 17.97 ml/(min*mm 12/29/2019 [facility] Hg) 10:51 AM CDT SUITE VA 6.35 L 12/29/2019 [facility] 10:51 AM CDT SUITE U8UggKckt 96.00 % 12/29/2019 [facility] 10:51 AM CDT SUITE PulseRest 85.00 1/min 12/29/2019 [facility] 10:51 AM CDT SUITE S7YqfCqrx 93.00 % 12/29/2019 [facility] [...] SUITE PRED VC MAX 4.50 L 12/29/2019 [facility] 10:51 AM CDT SUITE PRED FVC 4.50 L 12/29/2019 [facility] 10:51 AM CDT SUITE PRED FEV 1 3.32 L 12/29/2019 [facility] 10:51 AM CDT SUITE PRED FEV1/FVC 74.53 % 12/29/2019 [facility] 10:51 AM CDT SUITE PRED FEF 2.34 L/s 12/29/2019 [place] [place] [facility] 25-75% 10:51 AM CDT [address] PRED PEF 8.87 L/s 12/29/2019 [facility] [place] [facility] 10:51 AM CDT SUITE Specimen (Source) Anatomical Collection Method Collection Time Re ceived Time Location / / Volume Laterality 12/15/2019 9:21 AM CDT Narrative This result has an attachment that is no t available. Ailyn Sims M.D. PFT ORDERABLES Performing Organization Address City/State/ZIP Code Phon e Number [place] [address] PUL Exhaled Nitric Oxide (12/15/2019 9:13 AM CDT) [facility] gist Method Time Signature Exhaled NO 64 MMODAL Oral Parts per 39 MMODAL billion (ULN) ENOComment Patient takes MMODAL Albuterol, Symbicort Specimen (Source) Anatomical Location Collection Method / Collectio n Time Received Time / Laterality Volume Ailyn Sims M.D. PFT ORDERABLES Performing Organization Address City/[facility] Code Phon e Number MMODAL MMODAL NA [...] as of this encounter Care Teams Senior Python Developer Relationship Specialty Start Date End Date Ewa Alejandro M.D. PCP - General 03/13/17 01/09/20 [address] [place] [phone] documented as of this encounter
--- OUTSIDE RECORDS SUMMARY | 2022-05-28 06:50 | XMS_ITS | Encounter Summary ---
:1945 Author Organization [facility] Address [address] [place] [address] Care Team Providers Name Role Phone Ewa Alejandro M.D. 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 [address] [place] [phone] Referral ID Status Reason Start Date Expiration Date Visits Requ ested Visits Authorized [id number] Closed 12/17/2019 12/16/2020 1 1 Reason for Visit Reason Comments appointment question Encounter Details Date Type Department Care Team Description 12/10/2019 Clinical Division of Keisha Lopez appointment Communication Gastroenterology in FAROOQ Yeung questio n [place], [place] C.NKerry, M.S.N. [address] [facility] [address] [place] [address] [phone] Social History Tobacco Use Types Packs/Day Years [...] have completed or the highest Martin, MEd, CASTING CARRIER, CAYDEN) degree you have received? Sex Assigned [...] Patient will continue to follow with his Channeling Machine Operator and prefers to have EUS at [place]. Questions answered. Patient verbalized understanding and was [...] documented as of this encounter Care Teams Airconditioning Engineer Relationship Specialty Start Date End Date Ewa Alejandro M.D. PCP - General 03/13/17 01/09/[address] [place] [address] documented as of this encounter
--- OUTSIDE RECORDS SUMMARY | 2022-05-28 06:50 | XMS_ITS | Encounter Summary ---
:1945 Author Organization [facility] Address [address] [place] [address] Care Team Providers Name Role Phone Chris Billings M.D. 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 Do you [...] completed or the highest Martin, MEd, COMMERCIAL HVAC SERVICE TECHNICIAN, CAYDEN) degree you have received? [...] scanning reader (FREESTYLE ILEANA 14 DAY READER) [facility] Use as directed 1 each 0 ??? flash glucose sensor (FREESTYLE ILEANA 14 DAY SENSOR) kit Use as directed. 6 kit 3 ??? insulin aspart U-100 (NovoLOG FlexPen) 100 unit/mL injection Inject 0-35 Units under the skin asneeded (up to 6/d). ??? insulin glargine (LANTUS) 100 unit/mL injection Inject 44 Units under the skin at bedtime. ??? cvhwhu-qrurgrth-hjyqxeh (CREON) 6,000-19,000-30,[address] capsule Take 2 capsules by mouthas directed. 2 capsules with meals and 1 with snacks (Patient taking differently: Take 2 capsules bymouth as directed. 3 capsules with meals and 2 with snacks ) 240 capsule 3 ??? losartan (for_COZAAR) 100 mg tablet Take 1 tablet by mouth daily. ??? PEN NEEDLE, DIABETIC [facility] Yani Fine 30 disposable needles. For use with Insulin Pens, 4 times daily ??? SYRINGE-NEEDLE,INSULIN,0.5 ML (INSULIN [place] [facility]) ??? isosorbide mononitrate (IMDUR) 30 mg 24 [...] ASSESSMENT / PLAN #1 Atherosclerotic Heart Disease [place] Coronary Artery [...] spent a total of 35 minutes in hgy-jppl-wt-face time performing a review of the record and/or discussion with the patient/caregiver as described above. This Telephone Visit was performed during the - emergency, when many states had issued ezyyhxw-qw-ograb orders. documented in this encounter Plan of Treatment Scheduled Referrals Name Type Priority Associated Diagnoses Order [facility] Cardiovascular Disease Outpatient Routine Atherosclerotic He art Expected: - General cardiology Referral Disease [place] 02/10 consult (clinic) Coronary Artery With (Ap proximate), Other Forms Angina Expires: Pectoris (Angina 01/11/2023 Equivalent) ([facility]) documented as of this encounter Results (ABNORMAL) [...] e Number [facility] [address] [place] [address] [place] [address] System in [place] [address] [facility] (ABNORMAL) Albumin, Random, Urine (01/13/2020 8:21 AM CDT) [facility] gist Method Time Signature Microalbumin 2002.0 [...] e Number [facility] [address] [place] [address] [place] [address] System in [place] [address] [facility] documented in this encounter Visit Diagnoses Diagnosis 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 PCP - General Family Medicine 01/10/20 05/21/[address] [place] [address] Teresa [place] [phone] documented as of this encounter
--- OUTSIDE RECORDS SUMMARY | 2022-05-28 06:50 | XMS_ITS | Encounter Summary ---
:1945 Author Organization [facility] Address [address] [place] [address] Care Team Providers Name Role Phone Ewa Alejandro M.D. Primary Care Provider [phone] Reason for Visit Reason Onset Date Comments Blood glucose review 11/05/2019 Encounter Details Date Type Department Care Team Description 11/05/2019 Clinical Department of Alysha Pompa Blood glucos e Communication Nutrition in A, R.N., CDCES review Vaughn, [facility] [address] [place], [place] [address] [facility] [address] [place], [place] [phone] (Work) [phone] Social History Tobacco Use Types Packs/Day Years [...] do you attend sikh or Never 2021 mandaeism services? Do you [...] have completed or the highest Martin, MEd, FIREBOAT OPERATOR, CAYDEN) degree you have received? Sex Assigned at Date Recorded Male 05/21/2018 2:34 PM CDT documented as of this encounter Miscellaneous Notes Telephone Encounter - Alysha Pompa RMauroN. - 11/05/2019 11:50 AM CST Attempted to call patient, left message. OR DATA ARCHITECT documented in this encounter Plan of Treatment Not on filedocumented as of this encounter Visit Diagnoses Not on filedocumented in this encounter Additional Health Concerns Assessment Noted Time PHQ-9 Depression Total Score: 18 04/28/2018 11:27 AM C DT documented as of this encounter Care Teams Fish Straightener Relationship Specialty Start Date End Date Ewa Alejandro M.D. PCP - General 03/13/17 01/09/[address] [phone] documented as of this encounter
--- OUTSIDE RECORDS SUMMARY | 2022-05-28 06:50 | XMS_ITS | Encounter Summary ---
:1945 Author Organization [facility] Address [address] [place] [address] Care Team Providers Name Role Phone Ewa Alejandro M.D. Primary Care Provider Encounter Details Date Type Department Care Team Description 10/28/2019 Clinical Communication Department of Family Kirill Torres [facility], Ewa Barclay, Clinic, in [place] [address] [place] [phone] Social History Tobacco Use Types Packs/Day Years [...] do you attend anabaptism or Never 2021 taoist services? Do you [...] have completed or the highest Martin, MEd, VET TECH, CAYDEN) degree you have received? Sex Assigned at Date Recorded Male 05/21/2018 2:34 PM CDT documented as of this encounter Plan of Treatment Not on filedocumented as of this encounter Visit Diagnoses Not on filedocumented in this encounter Additional Health Concerns Assessment Noted Time PHQ-9 Depression Total Score: 18 04/28/2018 11:27 AM C DT documented as of this encounter Care Teams Jewelry Polisher Relationship Specialty Start Date End Date Ewa Alejandro M.D. PCP - General 03/13/17 01/09/[address] [phone] documented as of this encounter
--- OUTSIDE RECORDS SUMMARY | 2022-05-28 06:50 | XMS_ITS | Encounter Summary ---
:1945 Author Organization [facility] Address [address] [place] [address] Care Team Providers Name Role Phone Ewa Alejandro M.D. Primary Care Provider [phone] Encounter Details Date Type Department Care Team Description 12/15/2019 Diagnostic Division of Pulmonary Sims, Ailny Duque, Cough Chronic; Medicine in M.D. Shortness Of Breath; [place], [place] [address] [facility] Asthma Extrinsic Moderate (HCC) [address] [place] [phone] [phone] Social History Tobacco Use Types Packs/Day Years [...] do you attend holiness or Never 2021 church services? Do you [...] have completed or the highest Martin, MEd, MATURITY CHECKER, CAYDEN) degree you have received? Sex [...] Exhaled Nitric Oxide (12/15/2019 9:13 AM CDT) [facility] gist Method Time Signature Exhaled [...] documented as of this encounter Care Teams Logistic Specialist Relationship Specialty Start Date End Date Ewa Alejandro M.D. PCP - General 03/13/17 01/09/20 [address] [facility] [place] [address] documented as of this encounter
--- OUTSIDE RECORDS SUMMARY | 2022-05-28 06:51 | XMS_ITS | Encounter Summary ---
:1945 Author Organization [facility] Address [address] [place] [address] Care Team Providers Name Role Phone Ewa Alejandro M.D. Primary Care Provider [phone] Encounter Details Date Type Department Care Team Description 10/27/2019 Clinical Communication Department of Family Kirill Torres [facility], Ewa Barclay, Clinic, in [place] [address] [place] [phone] Social History Tobacco Use Types Packs/Day Years [...] have completed or the highest Martin, MEd, ENVELOPE MACHINE ADJUSTER, CAYDEN) degree you have received? Sex Assigned at Date Recorded Male 05/21/2018 2:34 PM CDT documented as of this encounter Miscellaneous Notes Telephone Encounter - Morelia Acuna L.P.N. - 10/28/2019 12:06 PM CST Patient in clinic at scheduling desk- inquiring scheduling for the Pulmonary testing. Patient to have this done at [facility]. Order will be faxed and patient scheduling will contact patient to set this up. CE EMPLOYEE Telephone Encounter - Sugey Guevara, CMauroMMauroAMauro - 10/27/2019 1:47 PM CST SUBJECTIVE CHIEF COMPLAINT / REASON FOR CALL No chief complaint on file. PLAN The following information was provided: No order in for pulmonary in [place] please place that order, patient is aware that once order is placed that Elsa will call him to set up that appt Information/Education: patient/caller able to teach back The following references were used: none CE EMPLOYEE Telephone Encounter - Shanon Glover - 10/27/2019 [...] back. Name of Medication (if relevant): na CE EMPLOYEE documented in this encounter Plan of Treatment Not on filedocumented as of this encounter Visit Diagnoses Not on filedocumented in this encounter Additional Health Concerns Assessment Noted Time PHQ-9 Depression Total Score: 18 04/28/2018 11:27 AM C DT documented as of this encounter Care Teams Optical Engineering Technician Relationship Specialty Start Date End Date Ewa Alejandro M.D. PCP - General 03/13/17 01/09/[address] [phone] documented as of this encounter
--- OUTSIDE RECORDS SUMMARY | 2022-05-28 06:51 | XMS_ITS | Encounter Summary ---
:1945 Author Organization [facility] Address [address] [place] [address] Care Team Providers Name Role Phone Ewa Alejandro M.D. Primary Care Provider [phone] Encounter Details Date Type Department Care Team Description 08/30/2019 Clinical Communication Department of Family Kirill Torres [facility], Ewa [place]clay, Clinic, in [place] [address] [place] [phone] Social History Tobacco Use Types Packs/Day Years [...] do you attend mu-ism or Never 2021 hinduism services? Do you [...] have completed or the highest Martin, MEd, FOREST LAW AND POLICY PROFESSOR, [place]YDEN) degree you have received? Sex [...] patient back Name of Medication (if relevant): HOUSEKEEPER documented in this encounter Plan of Treatment Not on filedocumented as of this encounter Visit Diagnoses Not on filedocumented in this encounter Additional Health Concerns Assessment Noted Time PHQ-9 Depression Total Score: 18 04/28/2018 11:27 AM C DT documented as of this encounter Care Teams Lockstitcher Relationship Specialty Start Date End Date Ewa Alejandro M.D. PCP - General 03/13/17 01/09/20 [address] [phone] documented as of this encounter
--- OUTSIDE RECORDS SUMMARY | 2022-05-28 06:51 | XMS_ITS | Encounter Summary ---
:1945 Author Organization [facility] Address [address] [place] [address] Care Team Providers Name Role Phone Ewa Alejandro M.D. Primary Care Provider [phone] Reason for Referral Outpatient (Routine) - Closed Specialty Diagnoses / Procedures Referred By Contact Refer red To Contact Nutrition Diagnoses Diabetes Mellitus Type 2 With Diabetic Neuropathy (HCC) Debbie Marquis M.D. [facility] [address] [place] [address] Referral ID Status Reason Start Date Expiration Date Visits Requ ested Visits Authorized [id number] Closed 10/21/2019 10/20/2020 1 1 Scheduling Instructions schedule with Zoya at 3 pm on 11/01/19 E CLERK Encounter Details Date Type Department Care Team Description 10/21/2019 Clinical Support Department of Debbie Marquis M.D . Diabetes Mellitus Nutrition in Hair, Alysha Arias RJustina, [facility] [address] [place] [phone] Type 2 With Diabetic Alexia, Neuropathy (HCC ) [place] (Primary Dx) [address] [place] [phone] Social History Tobacco Use Types Packs/Day Years [...] do you attend denominational or Never 2021 druze services? Do you [...] completed or the highest Martin, MEd, HUMAN RESOURCES OPERATIONS MANAGER, CAYDEN) degree you have received? [...] 2 With Diabetic Neuropathy (HCC) Nutrition - religious educator visit (clinic) Nutrition office visit (clinic) [...] Time spent with patient (minutes): 60 Minutes E CLERK documented in this encounter Plan of Treatment Scheduled Referrals Name Type Priority Associated Diagnoses Order S [facility] Nutrition office Outpatient Referral Routine Diabetes [...] documented as of this encounter Care Teams Briar Cutter Relationship Specialty Start Date End Date Ewa Alejandro M.D. PCP - General 03/13/17 01/09/20 [address] [place] [phone] documented as of this encounter
--- OUTSIDE RECORDS SUMMARY | 2022-05-28 06:51 | XMS_ITS | Encounter Summary ---
:1945 Author Organization [facility] Address [address] [place] [address] Care Team Providers Name Role Phone Ewa Alejandro M.D. Primary Care Provider [phone] Encounter Details Date Type Department Care Team Description 10/11/2019 Hospital Encounter Department of Parminder, Pancreat itis Chronic Laboratory Medicine Rhoda Stein (HCC) and Pathology, [address] [place] [address] in [place], [place] [phone] [place] [address] [place], [place] (Work) [phone] Social History Tobacco Use Types Packs/Day Years [...] have completed or the highest Martin, MEd, REIMBURSEMENT SPEC, CAYDEN) degree you have received? Sex Assigned [...] mouth 0 10/1305/06/2020 100 mg tablet daily. auksus-ocqtrxko-flelnaq Take 2 capsules by 240 capsule 3 [...] Chronic Results for this VITAMIN E, S LENS POLISHER ([facility]) procedure are i n the results section. 25-HYDROXYVITAMIN Routine 10/11/2019 9:52 AM Pancreatitis Hydrogen Plant Operations Manager hilary Results for this D2 AND D3, S LENS POLISHER ([facility]) procedure are i n the results section. HEMOGLOBIN A1C, B Routine 10/11/2019 9:52 AM Pancreatitis Hydrogen Plant Operations Manager hilary Results for this LENS POLISHER ([facility]) procedure are i n the results section. GLUCOSE, FASTING, Routine 10/11/2019 9:52 AM Pancreatitis Hydrogen Plant Operations Manager hilary Results for this S/P LENS POLISHER ([facility]) procedure are i n the results section. CREATININE WITH Routine 10/11/2019 9:52 AM Pancreatitis Chroni c Results for this EGFR, S/P LENS POLISHER ([facility]) procedure are i n the results section. documented in this encounter Results (ABNORMAL) 25-Hydroxyvitamin D2 and D3 (10/11/2019 9:52 AM LENS POLISHER) athologist Signature 25-Hydroxy D2 <4.0 ng/mL 10/12/2019 [facility] 9:47 PM LENS POLISHER 25-Hydroxy D3 15 ng/mL 10/12/2019 [facility] 9:47 PM LENS POLISHER 25-Hydroxy D 15 (L) ng/mL 10/12/2019 [facility] Total 9:47 PM LENS POLISHER Comment: Interpretation: 10-19 ng/mL (mild to mod erate deficiency) ----REFERENCE VALUE---- 25-HYDROXY D TOTAL (D2+D3) Optimum level s in the healthy population are 20-50, patients with bone disease may benefit from higher levels within this r stan. ----ADDITIONAL INFORMATION---- This test was developed and its performa nce characteristics determined by [facility] in a manner consistent with CLIA requirements. This test has not been cleared or approved by the [place] Susana d and Drug Administration. Specimen Anatomical Collection Method Collection Time Receive d Time (Source) Location / / Volume Laterality Blood (Blood, 10/11/2019 9:52 AM 10/11/19 1:30 Venous) LENS POLISHER PM LENS POLISHER Emil Zurita M.D. LAB BLOOD ADD-ON Performing Organization Address City/[facility] Phon e Number [facility] [address] [place] [address] SUPPORT [facility] [place] [address] Laboratory Medicine and Pathology [address] [place] [address] Dr. AYALA Vitamin A and Vitamin E (10/11/2019 9:52 AM LENS POLISHER) P athologist Signature Vitamin A 53.5 32.5 - 78.0 10/12/2019 [facility] mcg/dL 10:37 PM LENS POLISHER Comment: ----ADDITIONAL INFORMATION---- This test was developed and its performa nce characteristics determined by [facility] in a manner consistent with CLIA requirements. This test has not been cleared or approved by the [place]. Susana d and Drug Administration. A-Tocopherol, Vitamin E 10.9 5.5 - 17.0 mg/L 10/12/2019 1:35 PM LENS POLISHER [facility] Specimen Anatomical Collection Method Collection Time Receive d Time (Source) Location / / Volume Laterality Blood (Blood, 10/11/2019 9:52 AM 10/11/19 4:31 Venous) LENS POLISHER PM LENS POLISHER Emil Zurita M.D. LAB BLOOD NON ADD-ON Performing Organization Address City/[facility] Phon e Number [facility] [address] [place] [address] Dr AYALA [place], [place] [address] SUPPORT [facility] [place] [address] Laboratory Medicine and Pathology [address] [place] [address] Dr. AYALA (ABNORMAL) Glucose, Fasting (10/11/2019 9:52 AM LENS POLISHER) P athologist Signature Glucose, P 149 (H) 70 - 100 10/11/2019 [facility] mg/dL 11:01 AM LENS POLISHER Last Intake 17 hr 10/11/2019 DTL 10:14 AM LENS POLISHER Specimen Anatomical Collection Method Collection Time Receive d Time (Source) Location / / Volume Laterality Blood (Blood, 10/11/2019 9:52 AM 10/11/19 20 Venous) LENS POLISHER 10:14 AM LENS POLISHER Emil Zurita M.D. LAB BLOOD NON ADD-ON Performing Organization Address City/[facility]/ZIP Code Phon e Number [facility] - [address] [place], [place] [address] [facility] [place] [address] Laboratories[address] (ABNORMAL) Hemoglobin A1c (10/11/2019 9:52 AM LENS POLISHER) Analysis Performed At Patho logist Time Signature Hemoglobin A1c, 10.2 (H) 4.0 - 5.6 10/11/2019 [facility]TL B % 12:15 PM LENS POLISHER Comment: Hemoglobin A1c values greater than or eq ual to 6.5 percent are diagnostic for diabetes mellitus. ?? Diagnosis should be confirmed by repeat testing. ??In diabet ic patients, HbA1c goals should be discussed with healthcar e provider. Specimen Anatomical Collection Method Collection Time Receive d Time (Source) Location / / Volume Laterality Blood (Blood, 10/11/2019 9:52 AM 10/11/19 20 Venous) LENS POLISHER 10:14 AM LENS POLISHER Emil Zurita M.D. LAB BLOOD ADD-ON Performing Organization Address City/State/ZIP Code Phon e Number [facility] - 200 [place], [place] [address] [facility] [place] [address] [address] (ABNORMAL) Creatinine with Estimated GFR (10/11/2019 9:52 AM LENS POLISHER) P athologist Signature Creatinine 1.26 0.74 - 10/11/2019 DTL 1.35 mg/dL 10:54 AM LENS POLISHER eGFR-Non 55 (L) >=60 10/11/2019 DTL Black/ mL/min/BSA 10:54 AM LENS POLISHER [place] Comment: ----ADDITIONAL INFORMATION---- Estimated GFR calculated using the 2009 CKD_EPI creatinine equation. eGFR-Black/ 64 >=60 mL/min/BSA 2019 10:54 AM LENS POLISHER DTL Comment: ----ADDITIONAL INFORMATION---- Estimated GFR calculated using the 2009 CKD_EPI creatinine equation. Specimen Anatomical Collection Method Collection Time Receive d Time (Source) Location / / Volume Laterality Blood (Blood, 10/11/2019 9:52 AM 10/11/19 20 Venous) LENS POLISHER 10:14 AM LENS POLISHER Emil Zurita M.D. LAB BLOOD ADD-ON Performing Organization Address City/State/ZIP Code Phon e Number [facility] - [address] [place], [place] [address] [facility] [place] [address] Laboratories-[facility] [address] documented in this encounter Visit Diagnoses Diagnosis Pancreatitis Chronic (HCC) documented in this encounter Additional Health Concerns Assessment Noted Time PHQ-9 Depression Total Score: 18 04/28/2018 11:27 AM C DT documented as of this encounter Care Teams Automation Controls Engineer Relationship Specialty Start Date End Date Ewa Alejandro M.D. PCP - General 03/13/17 01/09/20 [address] [place] [phone] documented as of this encounter
--- OUTSIDE RECORDS SUMMARY | 2022-05-28 06:51 | XMS_ITS | Encounter Summary ---
:1945 Author Organization [facility] Address [address] [place] [address] Care Team Providers Name Role Phone Ewa Alejandro M.D. Primary Care Provider [phone] Reason for Referral MRI/CAT/PET Scan (Routine) - Closed Specialty Diagnoses / Procedures Referred By Contact Refer red To Contact Radiology Diagnoses Pancreatitis Chronic (HCC) Emil Zurita M.D. [facility] Procedures CT Abdomen Pelvis with IV Contrast CA CT ABD&PELVIS W CNTRST HC CT ABD&PELVIS W CNTRST CA CT ABD&PELVIS W CNTRST [address] [place], [place] [address] Referral ID Status Reason Start Date Expiration Date Visits Requ ested Visits Authorized [id number] Closed 09/15/2018 09/15/2019 1 1 PLE CHASER Reason for Visit Outpatient (Routine) - Closed Specialty Diagnoses / Procedures Referred By Contact Refer red To Contact Radiology Diagnoses Pancreatitis Chronic (HCC) [place] [address] Emil Zurita M.D. [address] [place] [address] ABDOMEN PELVIS WITH IV CONTRAST RAD CT ABDOMEN PELVIS [address] [facility] [address] [place] [address] [place] [address] Fax: Referral ID Status Reason Start Date Expiration Date Visits Requ ested Visits Authorized [id number] Closed 10/11/2019 10/10/2020 1 1 Encounter Details Date Type Department Care Team Description 10/11/2019 Hospital Encounter Department of Camilla Zurita Chronic Radiology, Agustín Stein M.D. ([facility]) Building, in [address] [place] [address] [place] [phone] [place], [place] [phone] (Work) [phone] Social History Tobacco Use Types Packs/Day Years [...] do you attend judaism or Never 2021 yazidi services? Do you [...] have completed or the highest Martin, MEd, CHUTE WORKER, CAYDEN) degree you have received? Sex [...] 188 cm (6' 2) 10/11/2019 10:27 AM CRIPPLE CHASER Body Mass Index - - documented in [...] mouth 0 10/1305/06/2020 100 mg tablet daily. zejkuv-oxopnfyh-odqlnfb Take 2 capsules by 240 capsule 3 [...] context of radiology care priorto contrast/medication administration. PLE CHASER documented in this encounter Plan of Treatment [...] this WITH IV CONTRAST (most inpatients AM CRIPPLE CHASER Chronic (HCC) proced ure are in and all the results outpatients) section. CREATININE, POCT, Routine 10/11/2019 10:40 Result s for this B AM CRIPPLE CHASER procedure are i n the results section. CREATININE, POCT, Routine 10/11/2019 10:40 Result s for this B AM CRIPPLE CHASER procedure are i n the results section. documented in this encounter Results CT Abdomen Pelvis with IV Contrast (10/11/2019 11:05 AM CRIPPLE CHASER) Anatomical Region Laterality Modality Abdomen, Pelvis, Abdominal RST LOS, N/A Comp uted Tomography, Computed Abdominal ARZ LOS, Abdominal FLA LOS Logan ography Specimen (Source) Anatomical Collection Method Collection Time Re ceived Time Location / / Volume Laterality 10/11/2019 1:13 PM CRIPPLE CHASER Impressions 10/11/2019 1:24 PM CRIPPLE CHASER No significant change from the most recent prior study; chronic changes of pancreatitis. Narrative 10/11/2019 1:24 PM CRIPPLE CHASER EXAM: ??CT ABDOMEN PELVIS WITH IV CONTRAST [...] CT PROCEDURES Creatinine, POCT (10/11/2019 10:40 AM CRIPPLE CHASER) athologist Signature Creatinine, 1.2 0.7 - 1.4 10/11/2019 PCDT POCT, B mg/dL 10:44 AM CRIPPLE CHASER Comment: ----ADDITIONAL INFORMATION---- Performed at the Point of Care Specimen Anatomical Collection Method Collection Time Receive d Time (Source) Location / / Volume Laterality Blood 10/11/2019 10:40 10/11/2019 AM CRIPPLE CHASER 10:44 AM CRIPPLE CHASER Unknown Provider LAB POCT ORDERABLES - DEVICE Performing Organization Address City/State/ZIP Code Phon e Number POC HILO PERFORMING [address] [place] [address] LABS PCDT [facility] - [place], [place] [id number] [place] [address] (ABNORMAL) Creatinine, POCT (10/11/2019 10:40 AM CRIPPLE CHASER) P athologist Signature eGFR-Black/Afri 67 >=60 10/11/2019 PCDT can Cypriot, mL/min/BSA 10:44 AM CRIPPLE CHASER POCT Comment: ----ADDITIONAL INFORMATION---- Estimated GFR calculated using the 2009 CKD_EPI creatinine equation. eGFR Non-Black/ 58 (L) >=60 mL/min/BSA 10/11/2019 10:44 AM CRIPPLE CHASER PCDT [place], POCT Comment: ----ADDITIONAL INFORMATION---- Estimated GFR calculated using the 2009 CKD_EPI creatinine equation. Specimen Anatomical Collection Method Collection Time Receive d Time (Source) Location / / Volume Laterality Blood 10/11/2019 10:40 10/11/2019 AM CRIPPLE CHASER 10:44 AM CRIPPLE CHASER Unknown Provider LAB POCT ORDERABLES - DEVICE Performing Organization Address City/State/ZIP Code Phon e Number POC HILO PERFORMING [address] [place] [address] LABS PCDT [facility] [place] [address] [place] POC [address] documented in this encounter Visit Diagnoses Diagnosis Pancreatitis Chronic (HCC) documented in this encounter Administered Medications Inactive Administered Medications - up to 3 most recent administrations Medication Order MAR Action Action Date Dose Rate Site iohexol 300 mg iodine/mL solution Given 10/11/2019 10:56 AM CRIPPLE CHASER 140 mL 1-200 mL ([place]IP[place]) 1-200 mL, intravenous, Once in imaging, contrast, Starting on Fri10/11/19 at 1022, For 1 dose, Imaging Protocol Orders, Dose per Radiant Medication Guidelines sodium chloride (PF) 0.9 % injection 1-1 00 mL Given 10/11/2019 10:56 AM CRIPPLE CHASER 50 mL 1-100 mL, intravenous, Once, On Fri10/11/19 at 1030, For 1 dose, Imaging Protocol Orders documented in this encounter Additional Health Concerns Assessment Noted Time PHQ-9 Depression Total Score: 18 04/28/2018 11:27 AM C DT documented as of this encounter Care Teams Masonry Supervisor Relationship Specialty Start Date End Date Ewa Alejandro M.D. PCP - General 03/13/17 01/09/20 [address] [place] [phone] documented as of this encounter
--- OUTSIDE RECORDS SUMMARY | 2022-05-28 06:51 | XMS_ITS | Encounter Summary ---
:1945 Author Organization [facility] Address [address] [place] [address] Care Team Providers Name Role Phone Ewa Alejandro M.D. Primary Care Provider [phone] Reason for Referral Outpatient (Routine) - Closed Specialty Diagnoses / Procedures Referred By Contact Refer red To Contact Diagnoses Pancreatitis Chronic (HCC) Exocrine Pancreatic Insufficiency Keisha Bailey APRN, [facility] Procedures ECG 12 Lead C.N.P., M.S.N. 200 [place] [address] Referral ID Status Reason Start Date Expiration Date Visits Requ ested Visits Authorized [id number] Closed 10/19/2019 10/18/2020 1 1 utpatient (Routine) - Closed Specialty Diagnoses / Procedures Referred By Contact Refer red To Contact Diagnoses Pancreatitis Chronic (HCC) Exocrine Pancreatic Insufficiency Deficiency Vitamin D Keisha Bailey APRN, [facility] Procedures BMD Bone Density Spine Hips C.N.P., M.S.N. [address] [place] [phone] Referral ID Status Reason Start Date Expiration Date Visits Requ ested Visits Authorized [id number] Closed 10/19/2019 10/18/2020 1 1 SHELL OPERATOR Encounter Details Date Type Department Care Team Description 10/19/2019 Clinical Communication Division of Keisha Bailey Gastroenterology [place], [place] Milana, M.S.N. 200 [facility] 200 [place] [address] [place], [place] [phone] Social History Tobacco Use Types Packs/Day Years [...] do you attend holiness or Never 2021 hinduism services? Do you [...] have completed or the highest Martin, MEd, DOCUMENT EXAMINER, CAYDEN) degree you have received? Sex Assigned at Date Recorded Male 05/21/2018 2:34 PM CDT documented as of this encounter Miscellaneous Notes Addendum Note - Keisha Bailey APRN, C.N.P., M.S.N. - 10/19/2019 11:13 AM CLAMSHELL OPERATOR Addended by: KEISHA BAILEY on: 10/19/2019 11:13 AM Modules accepted: Orders SHELL OPERATOR Telephone Encounter - Keisha Bailey APRN, C.N.P., M.S.N. - 10/19/2019 11:04 AM CST I spoke with Mr. Costa on the phone after discussing with Dr. Zurita. Given his unintentional weight loss, fatigue, worsening diabetes, and worsening exocrine insufficiency, Dr. Zuriat has recommended proceeding with EUS at this [...] me with any further questions or concerns. SHELL OPERATOR documented in this encounter Plan of Treatment Not on filedocumented as of this encounter Results ECG 12 Lead (10/20/2019 1:23 PM CLAMSHELL OPERATOR) P athologist Signature Ventricular Rate 73 BPM MUSE ECG/Min ME Interval 142 ms MUSE QRSD Interval 110 ms MUSE QT Interval 416 ms MUSE QTC Interval 459 ms MUSE P Sparks 35 degrees MUSE R Sparks -40 degrees MUSE T Wave Sparks 48 degrees MUSE Specimen Anatomical Collection Method Collection Time Receive d Time (Source) Location / / Volume Laterality 10/20/2019 1:23 PM 0 2:03 CLAMSHELL OPERATOR PM CLAMSHELL OPERATOR Impressions MUSE - 10/20/2019 2:03 PM CLAMSHELL OPERATOR Normal sinus rhythm Left axis deviation Nonspecific [...] NA (ABNORMAL) Glucose, Fasting (10/20/2019 12:58 PM CLAMSHELL OPERATOR) athologist Signature Glucose, P 181 (H) 70 - 100 10/20/2019 DTL mg/dL 2:22 PM CLAMSHELL OPERATOR Last Intake 5 hr 10/20/2019 DTL 1:18 PM CLAMSHELL OPERATOR Specimen Anatomical Collection Method Collection Time Receive d Time (Source) Location / / Volume Laterality Blood (Blood, 10/20/2019 12:58 10/20/2019 1:18 Venous) PM CLAMSHELL OPERATOR PM CLAMSHELL OPERATOR Brigette Mir APRNNJolene., M.S.N. LAB BLOOD NON ADD- ON Performing Organization Address City/[facility]/ZIP [facility] [place] e Number [facility] - [address] Sodium (10/20/2019 12:58 PM CLAMSHELL OPERATOR) athologist Signature Sodium, S 141 135 - 145 10/20/2019 2:20 DTL mmol/L PM CLAMSHELL OPERATOR Specimen Anatomical Collection Method Collection Time Receive d Time (Source) Location / / Volume Laterality Blood (Blood, 10/20/2019 12:58 10/20/2019 1:18 Venous) PM CLAMSHELL OPERATOR PM CLAMSHELL OPERATOR Brigette Mir APRNNJolene., M.S.N. LAB BLOOD ADD-ON Performing Organization Address City/[facility]/ZIP Code Phon e Number [facility] - [address] Potassium (10/20/2019 12:58 PM CLAMSHELL OPERATOR) athologist Signature Potassium, S 4.2 3.6 - 5.2 10/20/2019 DTL mmol/L 2:20 PM CLAMSHELL OPERATOR Specimen Anatomical Collection Method Collection Time Receive d Time (Source) Location / / Volume Laterality Blood (Blood, 10/20/2019 12:58 10/20/2019 1:18 Venous) PM CLAMSHELL OPERATOR PM CLAMSHELL OPERATOR Anna Marie Mir APRN.N.P., M.S.N. LAB BLOOD ADD-ON Performing Organization Address City/State/ZIP Code Phon e Number [facility] - [address] [place] [address] Laboratories-[facility] 200 [facility] Prothrombin Time (PT) (10/20/2019 12:57 PM CLAMSHELL OPERATOR) P athologist Signature Prothrombin 11.4 9.4 - 12.5 10/20/2019 DTL Time, P sec 1:37 PM CLAMSHELL OPERATOR INR 1.0 0.9 - 1.1 10/20/2019 DTL 1:37 PM CLAMSHELL OPERATOR Comment: ----ADDITIONAL INFORMATION---- Standard intensity warfarin therapeutic range: 2.0 to 3.0 ?? High intensity warfarin therapeutic rang e: 2.5 to 3.5 Specimen Anatomical Collection Method Collection Time Receive d Time (Source) Location / / Volume Laterality Blood (Blood, 10/20/2019 12:57 10/20/2019 1:18 Venous) PM CLAMSHELL OPERATOR PM CLAMSHELL OPERATOR Keisha Bailey APRN C.N.P., M.S.N. LAB BLOOD ADD-ON Performing Organization Address City/State/ZIP Code Phon e Number [facility] - [address] [place] [address] [address] (ABNORMAL) CBC without Differential (10/20/2019 12:57 PM CLAMSHELL OPERATOR) Patholo gist Method Time Signature Hemoglobin 12.4 (L) 13.2 - 10/20/2019 DTL 16.6 g/dL 1:27 PM CLAMSHELL OPERATOR Hematocrit 36.4 (L) 38.3 - 10/20/2019 DTL 48.6 % 1:27 PM CLAMSHELL OPERATOR Erythrocytes 4.15 (L) 4.35 - 10/20/2019 DTL 5.65 1:27 PM CLAMSHELL OPERATOR x10(12)/L MCV 87.7 78.2 - 10/20/2019 DTL 97.9 fL 1:27 PM CLAMSHELL OPERATOR RBC Distrib Width 12.7 11.8 - 10/20/2019 DTL 14.5 % 1:27 PM CLAMSHELL OPERATOR Platelet Count 257 135 - 317 10/20/2019 DTL x10(9)/L 1:27 PM CLAMSHELL OPERATOR Leukocytes 7.8 3.4 - 9.6 10/20/2019 DTL x10(9)/L 1:27 PM CLAMSHELL OPERATOR Specimen Anatomical Collection Method Collection Time Receive d Time (Source) Location / / Volume Laterality Blood (Blood, 10/20/2019 12:57 10/20/2019 1:18 Venous) PM CLAMSHELL OPERATOR PM CLAMSHELL OPERATOR Keisha Bailey APRN, C.N.P., M.S.N. LAB BLOOD ADD-ON Performing Organization Address City/State/ZIP Code Phon e Number [facility] - [address] [place], [place] [address] [facility] [place] [address] Laboratories-[facility] [address] BMD Bone Density Spine Hips (10/20/2019 12:21 PM CLAMSHELL OPERATOR) Anatomical Region Laterality Modality Hip, Lumbar Spine, Nuclear Medicine RST LOS, N/A Radiographic Imaging Musculoskeletal ARZ LOS, Muskuloskeletal FLA LOS Specimen (Source) Anatomical Collection Method Collection Time Re ceived Time Location / / Volume Laterality 10/20/2019 12:32 PM CLAMSHELL OPERATOR Impressions 10/20/2019 12:32 PM CLAMSHELL OPERATOR No evidence of osteoporosis or osteopeni a found Narrative 10/20/2019 12:32 PM CLAMSHELL OPERATOR EXAM: ??BMD BONE DENSITY SPINE HIPS [...] including images and graphs, is available in [employer]. In the absence of other causes of [...] documented as of this encounter Care Teams Flow Worker Relationship Specialty Start Date End Date Ewa Alejandro M.D. PCP - General 03/13/17 01/09/[address] [phone] documented as of this encounter
--- OUTSIDE RECORDS SUMMARY | 2022-05-28 06:51 | XMS_ITS | Encounter Summary ---
:1945 Author Organization [facility] Address [address] [place] [address] Care Team Providers Name Role Phone Ewa Alejandro M.D. Primary Care Provider [phone] Encounter Details Date Type Department Care Team [...] do you attend orthodox or Never 2021 latter day services? Do [...] have completed or the highest Martin, MEd, ENERGY CONSERVATION REPRESENTATIVE, CAY[place]) degree you have received? Sex [...] documented as of this encounter Care Teams Gamma Ray Operator Relationship Specialty Start Date End Date Ewa Alejandro M.D. PCP - General 03/13/17 01/09/[address] [place] [address] documented as of this encounter
--- OUTSIDE RECORDS SUMMARY | 2022-05-28 06:51 | XMS_ITS | Encounter Summary ---
:1945 Author Organization [facility] Address [address] [place] [address] Care Team Providers Name Role Phone Ewa Alejandro M.D. Primary Care Provider [phone] Reason for Referral Outpatient (Routine) - Closed Specialty Diagnoses / Procedures Referred By Contact Refer red To Contact Diagnoses Pancreatitis Chronic (HCC) Exocrine Pancreatic Insufficiency Deficiency Vitamin D [facility] Procedures BMD Bone Density Spine Hips C.N.P., M.S.N. 200 [place] [address] Referral ID Status Reason Start Date Expiration Date Visits Requ ested Visits Authorized [id number] Closed 10/19/2019 10/18/2020 1 1 LICTS ANALYST Reason for Visit Outpatient (Routine) - Closed Specialty Diagnoses / Procedures Referred By Contact Refer red To Contact Diagnoses Pancreatitis Chronic (HCC) Exocrine Pancreatic Insufficiency Deficiency Vitamin D Keisha Lopez APRN, [facility] Procedures BMD Bone Density Spine Hips C.N.P., M.S.N. [address] [place] [phone] Referral ID Status Reason Start Date Expiration Date Visits Requ ested Visits Authorized [id number] Closed 10/19/2019 10/18/2020 1 1 Encounter Details Date Type Department Care Team Description 10/20/2019 Hospital Encounter Department of Keisha Lopez Panc reatitis Chronic (HCC); Radiology, Leanne TRIVEDI C.N.P., Lexy German ancreatic Insufficiency (HCC); Building, in M.S.N. Deficiency Vitamin D [place], [address] [place], [place] [address] [facility] [address] [place], [place] [phone] (Work) [phone] Social History Tobacco Use Types Packs/Day Years [...] you attend oriental orthodox or Never 2021 yazidi services? Do [...] have completed or the highest Martin, MEd, MARKING CLERK, CAYDEN) degree you have received? Sex [...] mouth 0 10/1305/06/2020 100 mg tablet daily. [id number] Take 2 capsules by 240 capsule 3 [...] 05/01/2020 reader (FREESTYLE ILEANA 14 DAY READER) [facility] [place] flash glucose sensor Use as [...] for this SPINE HIPS (most inpatients PM CONFLICTS ANALYST (HCC) procedure are in and all Exocrine Pancreatic the resu lts outpatients) Insufficiency (H CC) section. Deficiency Vitamin D documented in this encounter Results BMD Bone Density Spine Hips (10/20/2019 12:21 PM CONFLICTS ANALYST) Anatomical Region Laterality Modality Hip, Lumbar Spine, Nuclear Medicine RST LOS, N/A Radiographic Imaging Musculoskeletal ARZ LOS, Muskuloskeletal FLA LOS Specimen (Source) Anatomical Collection Method Collection Time Re ceived Time Location / / Volume Laterality 10/20/2019 12:32 PM CONFLICTS ANALYST Impressions 10/20/2019 12:32 PM CONFLICTS ANALYST No evidence of osteoporosis or osteopeni a found Narrative 10/20/2019 12:32 PM CONFLICTS ANALYST EXAM: ??BMD BONE DENSITY SPINE HIPS FINDINGS: [...] evidence of skeletal fragility [facility]. Today's spine scan is [...] as of this encounter Care Teams Senior Java Web Application Developer Relationship Specialty Start Date End Date Ewa Alejandro M.D. PCP - General 03/13/17 01/09/20 [address], [place] [phone] documented as of this encounter
--- OUTSIDE RECORDS SUMMARY | 2022-05-28 06:51 | XMS_ITS | Encounter Summary ---
:1945 Author Organization [facility] Address [address] [place] [address] Care Team Providers Name Role Phone Ewa Alejandro M.D. Primary Care Provider [phone] Encounter Details Date Type Department Care Team Description 05/17/2019 Hospital Encounter Department of [facility] Laboratory Medicine Pato Mims Personal History in [address], [place] [phone] Social History Tobacco Use [...] do you attend spiritism or Never 2021 yazdanism services? Do you [...] have completed or the highest Martin, MEd, DETENTION OFFICER, CAYDEN) degree you have received? Sex [...] mouth 0 10/1305/06/2020 100 mg tablet daily. [id number] Take 2 capsules by 240 capsule 3 [...] 05/01/2020 reader (FREESTYLE ILEANA 14 DAY READER) [facility] [place] flash glucose sensor [...] Priority Date/Time Associated Diagnosis Comme nts CYTOLOGY NON-BACKER UP Routine 05/17/2019 8:53 AM Cancer Bladder Res ults for this (SCHEDULED) CDT Personal History procedure a re in the results section. documented in this encounter Results (ABNORMAL) Cytology Non-BACKER UP (Scheduled) (05/17/2019 8:53 AM CDT) Component Value Ref Test Analysis Performed At [facility] gist Range Method Time Signature [...] Phon e Number [facility] [address] [place] [address] CYTOLOGY documented in this encounter Visit Diagnoses Diagnosis Personal History Of Malignant Neoplasm O f Bladder documented in this encounter Additional Health Concerns Assessment Noted Time PHQ-9 Depression Total Score: 18 04/28/2018 11:27 AM C DT documented as of this encounter Care Teams Police Patrol Officer Relationship Specialty Start Date End Date Ewa Alejandro M.D. PCP - General 03/13/17 01/09/20 [address], [place] [phone] documented as of this encounter
--- OUTSIDE RECORDS SUMMARY | 2022-05-28 06:51 | XMS_ITS | Encounter Summary ---
:1945 Author Organization [facility] Address [address] [place] [address] Care Team Providers Name Role Phone Ewa Alejandro M.D. Primary Care Provider [phone] Reason for Referral MRI/CAT/PET Scan (Routine) - Closed Specialty Diagnoses / Procedures Referred By Contact Refer red To Contact Radiology Diagnoses Pancreatitis Chronic (HCC) Daisy Liu M.D. [facility] Procedures CT Abdomen without and with IV Contrast and Pelvis with IV Con CT Abdomen Pelvis without and with IV Contrast [address] [place] [phone] Referral ID Status Reason Start Date Expiration Date Visits Requ ested Visits Authorized [id number] Closed 06/24/2019 06/23/2020 1 1 Encounter Details Date Type Department Care Team Description 06/24/2019 Orders Only Division of Ran Eduardo Pancreatitis Chronic Gastroenterology in [address] [place] [address] (HCC) (Primary Dx) [place], [place] [address] [place] [phone] [place] [address] Social History Tobacco Use Types Packs/Day [...] do you attend protestant or Never 2021 druze services? Do you belong to any clubs or No 10/09/2021 organizations such as protestant groups, unions, [employer] or athletic groups, or school groups? How [...] completed or the highest Martin, MEd, BELT POLISHER, CAYDEN) degree you have received? Sex [...] documented as of this encounter Care Teams Palliative Care Physician Relationship Specialty Start Date End Date Ewa Alejandro M.D. PCP - General 03/13/17 01/09/[address] [place] [phone] documented as of this encounter
--- OUTSIDE RECORDS SUMMARY | 2022-05-28 06:51 | XMS_ITS | Encounter Summary ---
:1945 Author Organization [facility] Address [address] [place] [address] Care Team Providers Name Role Phone Ewa Alejandro M.D. Primary Care Provider [phone] Reason for Referral Outpatient (Routine) - Closed Specialty Diagnoses / Procedures Referred By Contact Refer red To Contact Endocrinology Diagnoses Diabetes Mellitus Type 2 With Diabetic Neuropathy (HCC) Keisha Lopez [facility] C.N.P., M.S.N. [address] [place] [address] Referral ID Status Reason Start Date Expiration Date Visits Requ ested Visits Authorized [id number] Closed 10/11/2019 10/10/2020 1 1 ORMANCE TEST ARCHITECT Reason for Visit Outpatient (Routine) - Closed Specialty Diagnoses / Referred By Referred To Cont act Procedures Contact Gastroenterology and Emil Zurita Rocheste r [facility] Hepatology Pato [address] [place] [address] Referral ID Status Reason Start Date Expiration Date Visits Requ ested Visits Authorized [id number] Closed 09/15/2018 09/15/2019 1 1 Encounter Details Date Type Department Care Team Description 10/11/2019 Office Visit Division of Keisha Lopez C hronic (HCC) (Primary Dx); Gastroenterology in T, WELFARE INTERVIEWER, Diabetes Mellitus Type 2 With Diabetic Neuropathy (HCC); [place], [place] C.N.P., M.S.N. Change In Bowel Habit; [address] Exocrine Pancreatic Insufficiency (HCC); [address] [place], [place] Loss Weight Abnormal; [phone] Stone Pancreatic Duct (HCC); [phone] Dilation Pancre atic Duct (HCC) (Work) Social [...] do you attend rastafari or Never 2021 anglican services? Do you [...] completed or the highest Martin, MEd, PHOTOGRAPHIC PROCESSOR, CAYDEN) degree you have received? 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 He is [...] patient andcoordination of care as described above. ORMANCE TEST ARCHITECT documented in this encounter Plan of Treatment Scheduled Referrals Name Type Priority Associated Order Schedule Diagnoses Endocrinology - Outpatient Referral Routine Diabetes Mellitus Expected: Diabetes consult Type 2 With 10/11/2019 (clinic) Diabetic Neuropathy (Approxi mate), ([facility]) Expires: 10/11/2022 documented as of [...] as of this encounter Care Teams Wire Harness Design Engineer Relationship Specialty Start Date End Date Ewa Alejandro M.D. PCP - General 03/13/17 01/09/20 [address], [place] [phone] documented as of this encounter
--- OUTSIDE RECORDS SUMMARY | 2022-05-28 06:51 | XMS_ITS | Encounter Summary ---
:1945 Author Organization [facility] Address [address] [place] [address] Care Team Providers Name Role Phone Ewa Alejandro M.D. Primary Care Provider [phone] Reason for Referral Specialty Diagnoses / Procedures Referred By Contact Refer red To Contact Debbie Marquis M.D. [address] [address] Referral ID Status Reason Start Date Expiration Date Visits Requ ested Visits Authorized DING ROOM FIXER Reason for Visit Outpatient (Routine) - Closed Specialty Diagnoses / Procedures Referred By Contact Refer red To Contact Endocrinology Diagnoses Diabetes Mellitus Type 2 With Diabetic Neuropathy (HCC) Keisha Lopez APRN, [facility] C.N.P., M.S.N. [address] [place] [phone] Referral ID Status Reason Start Date Expiration Date Visits Requ ested Visits Authorized [id number] Closed 10/11/2019 10/10/2020 1 1 Encounter Details Date Type Department Care Team Description 10/20/2019 Comprehensive Visit Division of Josselin Lopez APRN, C.N.P., M.S.N. [address] [place] [phone] 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) (Primary Dx); Endocrinology in Debbie Marquis M.D. Hyperlipidemia; [place], Pancreatitis Ch licolidya Recurrent (HCC); [place] Stroke Cerebrovascular Accid ent Personal History [address] [place] [phone] Social History Tobacco Use Types Packs/Day Years [...] do you attend taoist or Never 2021 pentecostalism services? Do you [...] have completed or the highest Martin, MEd, FOREIGN COLLECTION CLERK, CAYDEN) degree you have received? Sex Assigned at Date Recorded Male 05/21/2018 2:34 PM CDT documented as of this encounter Patient Instructions Patient Debbie Reagan M.D. - 10/20/2019 2:45 PM CST 1. Lantus 30 units every night 2. NovoLog 10 units with each meal 3. Please check BS before each meal and at bedtime. Goal blood sugar between 100-150. 4. breastfeeding educator visit. 4. Office visit in 3 months. [...] your mealtime insulin based on the table. DING ROOM FIXER documented in this encounter Progress Notes Debbie Marquis M.D. - 10/20/2019 2:45 PM CST [facility] Endocrinology, Diabetes, Metabolism and Nutrition Metabolic Clinic Date of Visit: 10/20/2019 Supervising insurance consultant: Dr. Garcia Chief Complaint: Type 2 diabetes mellitus History of Present Illness Jonnathan Costa is a 74-year-old man who presents for evaluation of type 2 diabetes mellitus. He has a background of idiopathic, chronic calcific pancreatitis with exocrine insufficiency, hypertension, hyperlipidemia, and Agent [place] exposure. He was diagnosed with type 2 [...] tablet 11 ??? flash glucose scanning reader (LakalaSTYLE ILEANA 14 DAY READER) misc Use as [...] injection LW Addl Instr:Indicated for: Diabetes ??? unqblp-hnidqtoq-pwwihvv (CREON) 6,000-19,000-30,[address] capsule Take [...] the [facility]. ??? TONSILLECTOMY ??? VASECTOMY Physical Examination [...] titrate over time for optimal control. - breastfeeding educator visit to review general Diabetes Education and [...] your mealtime insulin based on the table. DING ROOM FIXER Asher Garcia M.D. - 10/20/2019 2:45 PM [...] patient with and address all these recommendations. DING ROOM FIXER documented in this encounter Plan of Treatment Scheduled Referrals Name Type Priority Associated Diagnoses Order S chedule Nutrition - Outpatient Referral Routine Diabetes Mellitus Exp ected: breastfeeding educator Type 2 With Diabetic visit (clinic) Neuropathy (HCC) (Approxim ate), Expires: 10/20/2020 documented as of this encounter Results C-Peptide (10/20/2019 12:54 PM BOARDING ROOM FIXER) P athologist Signature C-Peptide, S 2.2 1.1 - 4.4 10/20/2019 DTL ng/mL 5:16 PM BOARDING ROOM FIXER Specimen Anatomical Collection Method Collection Time Receive d Time (Source) Location / / Volume Laterality Blood (Blood, 10/20/2019 12:54 10/20/2019 4:24 Venous) PM BOARDING ROOM FIXER PM BOARDING ROOM FIXER Debbie Marquis M.D. LAB BLOOD ADD-ON Performing Organization Address City/State/ZIP Code Phon e Number [facility] - [address] [place], [place] [address] [facility] [place] [address] [facility] [address] (ABNORMAL) Lipid Panel (10/20/2019 12:54 PM BOARDING ROOM FIXER) P athologist Signature Cholesterol, 172 mg/dL 10/20/2019 DTL Total 5:16 PM BOARDING ROOM FIXER Comment: ----REFERENCE VALUE---- Desirable: < 200 Borderline high: 200 - 239 High: > or = 240 Triglycerides 214 (H) mg/dL 10/20/2019 5:16 PM BOARDING ROOM FIXER DTL Comment: ----REFERENCE VALUE---- Normal: <150 Borderline high: 150-199 High: 200-499 Very high: > or =500 Cholesterol, HDL, S 35 (L) >=40 mg/dL 10/20/2019 5:16 PM BOARDING ROOM FIXER DTL Calculated LDL 94 mg/dL 10/20/2019 5:16 PM BOARDING ROOM FIXER DT L Comment: ----REFERENCE VALUE---- Desirable: <100 Above Desirable: 100-129 Borderline high: 130-159 High: 160-189 Very high: > or =190 Cholesterol, Non-HDL, Calculated 137 mg/dL 020 5:16 PM BOARDING ROOM FIXER DTL Comment: ----REFERENCE VALUE---- Desirable: <130 Above Desirable: 130-159 Borderline high: 160-189 High: 190-219 Very high: > or =220 Specimen Anatomical Collection Method Collection Time Receive d Time (Source) Location / / Volume Laterality Blood (Blood, 10/20/2019 12:54 10/20/2019 4:24 Venous) PM BOARDING ROOM FIXER PM BOARDING ROOM FIXER Debbie Marquis M.D. LAB BLOOD ADD-ON Performing Organization Address City/State/ZIP Code Phon e Number [facility] - [address] [place] [address] [facility] [place] [address] [facility] 200 [facility] documented in this encounter Visit Diagnoses Diagnosis 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) - Primary Hyperlipidemia Pancreatitis Chronic Recurrent (HCC) Stroke Cerebrovascular Accident Personal History documented in this encounter Additional Health Concerns Assessment Noted Time PHQ-9 Depression Total Score: 18 04/28/2018 11:27 AM C DT documented as of this encounter Care Teams Egg Buyer Relationship Specialty Start Date End Date Ewa Alejandro M.D. PCP - General 6/15/17 [address] [place] [address] documented as of this encounter
--- OUTSIDE RECORDS SUMMARY | 2022-05-28 06:51 | XMS_ITS | Encounter Summary ---
:1945 Author Organization [facility] Address [address] [place] [address] Care Team Providers Name Role Phone Ewa Alejandro M.D. Primary Care Provider [phone] Reason for Referral Outpatient (Routine) - Closed Specialty Diagnoses / Procedures Referred By Contact Refer red To Contact Diagnoses Personal History Of Malignant Neoplasm Of Bladder Prasanna Bernal M.D. [facility] Procedures Cystoscopy (specific provider) [address] [place] [address] Referral ID Status Reason Start Date Expiration Date Visits Requ ested Visits Authorized [id number] Closed 05/24/2019 05/23/2020 1 1 Reason for Visit Reason Comments Follow-up Encounter Details Date Type Department Care Team Description 05/24/2019 Procedure visit Department of Urology Prasanna Bernal, Cancer Bladder in [place] Personal History [place] [address] [place], [place] [phone] Social History Tobacco Use Types Packs/Day Years [...] do you attend bahai or Never 2021 mandaen services? Do you [...] have completed or the highest Martin, MEd, ROTO GRAVURE PRESS OPERATOR, CAYDEN) degree you have received? [...] Priority Date/Time Associated Diagnosis Comme nts CYTOLOGY NON-SUPERVISOR SULFURIC ACID PLANT Routine 05/24/2019 9:09 AM Cancer Bladder Res ults for this CDT Personal History procedure a re in the results section. documented in this encounter Results Cytology Non-SUPERVISOR SULFURIC ACID PLANT (Scheduled) (11/18/2019 9:01 AM SUPERVISING EDITOR TRAILER) Component Value Ref Test Analysis Performed At [employer] gist Range Method Time Signature 11/19/2019 [facility] 10:23 AM SUPERVISING EDITOR TRAILER Fixative 50% REAGENT 11/19/2019 [facility] ALCOHOL 10:23 AM SUPERVISING EDITOR TRAILER Report Brady Goodrich MD 11/19/2019 [facility] electronically I verify that I have examined all relevant slides/ma terials 10:23 AM signed by for the specimen(s) and rendered or confirmed the diagnosis. SUPERVISING EDITOR TRAILER Gross Description Received 80 11/19/2019 [facility] ml of cloudy 10:23 AM yellow SUPERVISING EDITOR TRAILER alcohol fixed fluid. Collection VOIDED 11/19/2019 [facility] Procedure 10:23 AM SUPERVISING EDITOR TRAILER Source A. Urine, 11/19/2019 [facility] Clean Catch, 10:23 AM voided SUPERVISING EDITOR TRAILER Clinical History Z85.51 11/19/2019 [facility] 10:23 AM SUPERVISING EDITOR TRAILER Interpretation A. 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 10:23 A M SUPERVISING EDITOR TRAILER Specimen Anatomical Collection Method Collection Time Receive d Time (Source) Location / / Volume Laterality Varies (Urine, 11/18/2019 9:01 AM 020 7:13 Clean Catch) SUPERVISING EDITOR TRAILER AM SUPERVISING EDITOR TRAILER Narrative This result has an attachment that is no t available. Prasanna Bernal M.D. LAB SURG PATH ORDERABLES Performing Organization Address City/State/ZIP Code Phon e Number [facility]- [address] [place] [address] [facility] [place] [address] [facility] [address] [facility] Cytology Non-SUPERVISOR SULFURIC ACID PLANT (05/24/2019 9:09 AM CDT) Component Value Ref Test Analysis Performed At [employer] gist Range Method Time Signature Gross Description [...] Code Phon e Number [facility] [address] [place] [address] CYTOLOGY documented in this encounter Visit Diagnoses Diagnosis Personal History Of Malignant Neoplasm O f Bladder documented in this encounter Additional Health Concerns Assessment Noted Time PHQ-9 Depression Total Score: 18 04/28/2018 11:27 AM C DT documented as of this encounter Care Teams Consulting Psychiatrist Relationship Specialty Start Date End Date Ewa Alejandro M.D. PCP - General 03/13/17 01/09/[address] [place] [phone] documented as of this encounter
--- OUTSIDE RECORDS SUMMARY | 2022-05-28 06:51 | XMS_ITS | Encounter Summary ---
:1945 Author Organization [facility] Address [address] [place] [address] Care Team Providers Name Role Phone Ewa Alejandro M.D. Primary Care Provider Reason for Referral Outpatient (Routine) - Closed Specialty Diagnoses / Procedures Referred By Contact Refer red To Contact Pulmonary Medicine Diagnoses Chronic Cough Flavia Alexia [facility] [place] [address], [place] [address] Referral ID Status Reason Start Date Expiration Date Visits Requ ested Visits Authorized [id number] Closed 10/27/2019 10/26/2020 1 1 K PLUG ASSEMBLER Encounter Details Date Type Department Care Team Description 10/27/2019 Orders Only Department of [facility] Philip Barnard Chronic (Primary Medicine, Ewa Barclay, Martin) Clinic, in [place] [address] [place] [phone] Social History Tobacco Use Types Packs/Day Years [...] have completed or the highest Martin, MEd, ELECTRONICS TECHNOLOGY DEPARTMENT CHAIR, CAYDEN) degree you have received? Sex Assigned at Date Recorded Male 05/21/2018 2:34 PM CDT documented as of this encounter Plan of Treatment Scheduled Referrals Name Type Priority Associated Diagnoses Order [facility] Pulmonary Medicine Outpatient Referral Routine Cough Chronic E xpected: - Cough consult 10/28/2019, (clinic) Expires: 10/27/2022 documented as of this encounter Results DX Chest AP or PA and Lateral 2 Views (11/16/2019 8:25 AM SPARK PLUG ASSEMBLER) Anatomical Region Laterality Modality Chest, Thoracic RST LOS, Thoracic ARZ LOS, Thoracic N/A Digital Radiography FLA LOS Specimen (Source) Anatomical Collection Method Collection Time Re ceived Time Location / / Volume Laterality 11/16/2019 8:31 AM SPARK PLUG ASSEMBLER Impressions 11/16/2019 8:32 AM SPARK PLUG ASSEMBLER No acute radiographic abnormality. Narrative 11/16/2019 8:32 AM SPARK PLUG ASSEMBLER EXAM: DX CHEST AP OR PA AND [...] documented as of this encounter Care Teams Watcher Lookout Tower Relationship Specialty Start Date End Date Ewa Alejandro M.D. PCP - General 03/13/17 01/09/[address] [phone] documented as of this encounter
--- OUTSIDE RECORDS SUMMARY | 2022-05-28 06:51 | XMS_ITS | Encounter Summary ---
:1945 Author Organization [facility] Address [address] [place] [address] Care Team Providers Name Role Phone Ewa Alejandro M.D. Primary Care Provider Reason for Visit Reason Comments other patient requesting to have a ll specialist appointment in [place] be coordinated by primary provi vasquez Appointment Request (Routine) - Closed Specialty Diagnoses / Procedures Referred By Contact Refer red To Contact Family Medicine Referral ID Status Reason Start Date Expiration Date Visits Requ ested Visits Authorized [id number] Closed 09/28/2019 09/27/2020 1 1 Encounter Details Date Type Department Care Team Description 10/15/2019 Office Visit Department of Family Alicia freed Disorders Of Lung (Primary Dx); Medicine, Ewa Turner, Werner s Mellitus Type 2 Hyperglycemia (HCC) Clinic, in [place] [address] [place] [phone] Social History Tobacco Use Types Packs/Day Years [...] have completed or the highest Martin, MEd, TEACHER EDUCATION DIRECTOR, CAYDEN) degree you have received? Sex Assigned at Date Recorded Male 05/21/2018 2:34 PM CDT documented as of this encounter Last Filed Vital Signs Vital Sign Reading Time Taken Comments Blood Pressure 134/66 10/15/2019 11:38 AM HEALTHCARE ARCHITECT Pulse 68 10/15/2019 11:38 AM HEALTHCARE ARCHITECT Temperature 36.4 ??C (97.5 ??F) 10/15/2019 11:38 AM HEALTHCARE ARCHITECT Respiratory Rate 18 10/15/2019 11:38 AM HEALTHCARE ARCHITECT Oxygen Saturation - - Inhaled Oxygen Concentration - - Weight 107 kg (236 lb 12.4 oz) 10/15/2019 11:38 AM HEALTHCARE ARCHITECT Height 188 cm (6' 2.02) 10/15/2019 11:38 AM HEALTHCARE ARCHITECT Body Mass Index 30.39 10/15/2019 11:38 AM HEALTHCARE ARCHITECT documented in this encounter Progress Notes Ewa Alejandro M.D. - 10/15/2019 11:45 AM CST SUBJECTIVE Chief Complaint Patient presents with ??? other patient requesting to have all specialist appointment in [place] be coordinated by primary provider HISTORY OF PRESENT ILLNESS Jonnathan Costa is a 74 y.o. male who presents to the clinic today to discuss referrals to [place]. He states that he has not felt [...] supplies. He would like a referral to [place], but he is not sure which specialist to goto. He believes that he went through a depression recently. He was sleeping between 11-12 hours a day and still fatigued. Then around 09/17/19, he woke and felt better and happy. He is following with the Pancreas [facility] at [facility] and started following with Endocrinology to help [...] injection LW Addl Instr:Indicated for: Diabetes ??? njphmq-uuufcxgc-siqiych (CREON) 6,000-19,000-30,[address] capsule Take [...] 06/18/2011 intolerant to CPAP therapy ??? Asthma ([facility]) 10/16/2009 Pulmonary symptomatology, diagnosis at the [facility] [...] the [facility]. ??? TONSILLECTOMY ??? VASECTOMY PREVENTIVE SERVICES: Social [...] lung disease PLAN: Will place referral to [place]. #2 Diabetes Mellitus Type 2 Hyperglycemia (HCC) PLAN: He is scheduled with Endocrinology at [facility] for further evaluation of this. #3 Follow [...] behalf by Karen Givens, a trained medical records director. The creation of this record is based on the scribe's personal observations and the provider's statements to them. This documenthas been checked and approved by the attending provider. THCARE ARCHITECT documented in this encounter Plan of Treatment Not on filedocumented as of this encounter Visit Diagnoses Diagnosis Other Disorders Of Lung - Primary Diabetes Mellitus Type 2 Hyperglycemia ( HCC) documented in this encounter Additional Health Concerns Assessment Noted Time PHQ-9 Depression Total Score: 18 04/28/2018 11:27 AM C DT documented as of this encounter Care Teams Bioinformatician Relationship Specialty Start Date End Date Ewa Alejandro M.D. PCP - General 03/13/17 01/09/20 [address] [place] [phone] documented as of this encounter
--- OUTSIDE RECORDS SUMMARY | 2022-05-28 06:51 | XMS_ITS | Encounter Summary ---
:1945 Author Organization [facility] Address [address] [place] [address] Care Team Providers Name Role Phone Ewa Alejandro M.D. Primary Care Provider [phone] Encounter Details Date Type Department Care Team Description 07/19/2019 Clinical Communication Division of [facility] in [place], [place] [address] [facility] [address] [place] [phone] [phone] Social History Tobacco Use Types Packs/Day Years [...] do you attend spiritism or Never 2021 sabianism services? Do you [...] have completed or the highest Martin, Sirena, FOOD ANALYST, CAYDEN) degree you have received? Sex Assigned at Date Recorded Male 05/21/2018 2:34 PM CDT documented as of this encounter Plan of Treatment Not on filedocumented as of this encounter Visit Diagnoses Not on filedocumented in this encounter Additional Health Concerns Assessment Noted Time PHQ-9 Depression Total Score: 18 04/28/2018 11:27 AM C DT documented as of this encounter Care Teams Production Proofreader Relationship Specialty Start Date End Date Ewa Alejandro M.D. PCP - General 03/13/17 01/09/[address] [phone] documented as of this encounter
--- OUTSIDE RECORDS SUMMARY | 2022-05-28 06:51 | XMS_ITS | Encounter Summary ---
:1945 Author Organization [facility] Address [address] [place] [address] Care Team Providers Name Role Phone Ewa Alejandro M.D. Primary Care Provider [phone] Encounter Details Date Type Department Care Team Description 06/30/2019 Documentation Division of Gastroenterology [facility] [address] [facility] [address] [place] [phone] Social History Tobacco Use Types Packs/Day Years [...] completed or the highest Martin, MEd, MANAGER PERIOPERATIVE, CAYDEN) degree you have received? Sex Assigned at Date Recorded Male 05/21/2018 2:34 PM CDT documented as of this encounter Plan of Treatment Not on filedocumented as of this encounter Visit Diagnoses Not on filedocumented in this encounter Additional Health Concerns Assessment Noted Time PHQ-9 Depression Total Score: 18 04/28/2018 11:27 AM C DT documented as of this encounter Care Teams Metal Window Screen Assembler Relationship Specialty Start Date End Date Ewa Alejandro M.D. PCP - General 03/13/17 01/09/20 [address], [place] [address] documented as of this encounter
--- OUTSIDE RECORDS SUMMARY | 2022-05-28 06:51 | XMS_ITS | Encounter Summary ---
:1945 Author Organization [facility] Address [address] [place] [address] Care Team Providers Name Role Phone Ewa Alejandro M.D. Primary Care Provider [phone] Reason for Visit Outpatient (Routine) - Closed Specialty Diagnoses / Procedures Referred By Contact Refer red To Contact Nephrology and Rob Cantu [place] [facility] Hypertension [place] [address] [place] [address] Referral ID Status Reason Start Date Expiration Date Visits Requ ested Visits Authorized [id number] Closed 02/16/2019 02/16/2020 1 1 Encounter Details Date Type Department Care Team Description 03/23/2019 Office Visit Division of Nephrology Rob Cantu Hyp ertension Essential and Hypertension in [place] Primary (Primary Dx) [place], [place] 200 [facility] 200 [place] [phone] [phone] Social History Tobacco Use Types Packs/Day Years [...] do you attend druze or Never 2021 presybeterian services? Do you belong to any clubs or No 10/09/2021 organizations such as druze groups, unions, fraCrimson Renewable or athletic groups, or school groups? How [...] have completed or the highest Martin, MEd, SAGGER MAKER, CAYDEN) degree you have received? Sex [...] Body Mass Index 29.92 11/09/2018 8:55 AM GLASS FURNACE TENDER documented in this encounter Progress Notes Rob [...] documented as of this encounter Care Teams Occupational Ther Relationship Specialty Start Date End Date Ewa Alejandro M.D. PCP - General 03/13/17 01/09/[address] [phone] documented as of this encounter
--- OUTSIDE RECORDS SUMMARY | 2022-05-28 06:51 | XMS_ITS | Encounter Summary ---
:1945 Author Organization [facility] Address [address] [place] [address] Care Team Providers Name Role Phone Ewa Alejandro M.D. Primary Care Provider [phone] Encounter Details Date Type Department Care Team Description 10/20/2019 Hospital Encounter Department of Keisha Lopez, Panc reatitis Chronic (HCC); Laboratory Medicine ROLLER MAKER, C.N.P., Exocrin e Pancreatic Insufficiency (HCC) and Pathology, [facility] [address] [place] [phone] [place] [address] [place], [place] (Work) [phone] Social History Tobacco Use Types Packs/Day Years [...] do you attend buddhism or Never 2021 cheondoism services? Do you belong to any clubs or No 10/09/2021 organizations such as buddhism groups, unions, fraHomecare Homebase or athletic groups, or school groups? How [...] have completed or the highest Martin, MEd, KEY CARRIER, CAYDEN) degree you have received? Sex [...] mouth 0 10/1305/06/2020 100 mg tablet daily. [id number]-mfcxzim Take 2 capsules by 240 capsule 3 [...] reader (FREESTYLE ILEANA 14 DAY READER) [facility] flash glucose sensor Use as [...] Pancreatitis Chronic Res ults for this PM ENVIRONMENTAL AIDE (HCC) procedure are in Exocrine Pancreatic the resu lts Insufficiency ([facility]) section. POTASSIUM, S/P Routine 10/20/2019 12:58 Pancreatitis Chronic R esults for this PM ENVIRONMENTAL AIDE (HCC) procedure are in Exocrine Pancreatic the resu lts Insufficiency ([facility]) section. GLUCOSE, FASTING, Routine 10/20/2019 12:58 Pancreatitis Chroni c Results for this S/P PM ENVIRONMENTAL AIDE (HCC) procedure are in Exocrine Pancreatic the resu lts Insufficiency ([facility]) section. PROTHROMBIN TIME Routine 10/20/2019 12:57 Pancreatitis Chronic Results for this (PT), P PM ENVIRONMENTAL AIDE ([facility]) procedure are in Exocrine Pancreatic the resu lts Insufficiency ([facility]) section. CBC WITHOUT Routine 10/20/2019 12:57 Pancreatitis Chronic Res ults for this DIFFERENTIAL, B PM ENVIRONMENTAL AIDE (HCC) procedure are in Exocrine Pancreatic the resu lts Insufficiency ([facility]) section. documented in this encounter Results (ABNORMAL) Glucose, Fasting (10/20/2019 12:58 PM ENVIRONMENTAL AIDE) P athologist Signature Glucose, P 181 (H) 70 - 100 10/20/2019 DTL mg/dL 2:22 PM ENVIRONMENTAL AIDE Last Intake 5 hr 10/20/2019 DTL 1:18 PM ENVIRONMENTAL AIDE Specimen Anatomical Collection Method Collection Time Receive d Time (Source) Location / / Volume Laterality Blood (Blood, 10/20/2019 12:58 10/20/2019 1:18 Venous) PM ENVIRONMENTAL AIDE PM ENVIRONMENTAL AIDE Keisha Lopez APRN, C.N.P., M.S.N. LAB BLOOD NON ADD- ON Performing Organization Address City/[facility] Phon e Number [facility] - [address] Sodium (10/20/2019 12:58 PM ENVIRONMENTAL AIDE) athologist Signature Sodium, S 141 135 - 145 10/20/2019 2:20 DTL mmol/L PM ENVIRONMENTAL AIDE Specimen Anatomical Collection Method Collection Time Receive d Time (Source) Location / / Volume Laterality Blood (Blood, 10/20/2019 12:58 10/20/2019 1:18 Venous) PM ENVIRONMENTAL AIDE PM ENVIRONMENTAL AIDE Keisha Lopez APRN, C.N.P., M.S.N. LAB BLOOD ADD-ON Performing Organization Address [facility] Phon e Number [facility] - [address] Potassium (10/20/2019 12:58 PM ENVIRONMENTAL AIDE) athologist Signature Potassium, S 4.2 3.6 - 5.2 10/20/2019 DTL mmol/L 2:20 PM ENVIRONMENTAL AIDE Specimen Anatomical Collection Method Collection Time Receive d Time (Source) Location / / Volume Laterality Blood (Blood, 10/20/2019 12:58 10/20/2019 1:18 Venous) PM ENVIRONMENTAL AIDE PM ENVIRONMENTAL AIDE Keisha Lopez APRN, C.N.P., M.S.N. LAB BLOOD ADD-ON Performing Organization Address City/[facility]/ZIP [facility] Phon e Number [facility] - [address] Prothrombin Time (PT) (10/20/2019 12:57 PM ENVIRONMENTAL AIDE) athologist Signature Prothrombin 11.4 9.4 - 12.5 10/20/2019 DTL Time, P sec 1:37 PM ENVIRONMENTAL AIDE INR 1.0 0.9 - 1.1 10/20/2019 DTL 1:37 PM ENVIRONMENTAL AIDE Comment: ----ADDITIONAL INFORMATION---- Standard intensity warfarin therapeutic range: 2.0 to 3.0 ?? High intensity warfarin therapeutic rang e: 2.5 to 3.5 Specimen Anatomical Collection Method Collection Time Receive d Time (Source) Location / / Volume Laterality Blood (Blood, 10/20/2019 12:57 10/20/2019 1:18 Venous) PM ENVIRONMENTAL AIDE PM ENVIRONMENTAL AIDE Keisha Lopez APRN, C.N.P., M.S.N. LAB BLOOD ADD-ON Performing Organization Address City/[facility] Phon e Number [facility] - 200 [place], [place] [address] [place] [address] (ABNORMAL) CBC without Differential (10/20/2019 12:57 PM ENVIRONMENTAL AIDE) [facility] gist Method Time Signature Hemoglobin 12.4 (L) 13.2 - 10/20/2019 DTL 16.6 g/dL 1:27 PM ENVIRONMENTAL AIDE Hematocrit 36.4 (L) 38.3 - 10/20/2019 DTL 48.6 % 1:27 PM ENVIRONMENTAL AIDE Erythrocytes 4.15 (L) 4.35 - 10/20/2019 DTL 5.65 1:27 PM ENVIRONMENTAL AIDE x10(12)/L MCV 87.7 78.2 - 10/20/2019 DTL 97.9 fL 1:27 PM ENVIRONMENTAL AIDE RBC Distrib Width 12.7 11.8 - 10/20/2019 DTL 14.5 % 1:27 PM ENVIRONMENTAL AIDE Platelet Count 257 135 - 317 10/20/2019 DTL x10(9)/L 1:27 PM ENVIRONMENTAL AIDE Leukocytes 7.8 3.4 - 9.6 10/20/2019 DTL x10(9)/L 1:27 PM ENVIRONMENTAL AIDE Specimen Anatomical Collection Method Collection Time Receive d Time (Source) Location / / Volume Laterality Blood (Blood, 10/20/2019 12:57 10/20/2019 1:18 Venous) PM ENVIRONMENTAL AIDE PM ENVIRONMENTAL AIDE Keisha Lopez APRN, C.N.P., M.S.N. LAB BLOOD ADD-ON Performing Organization Address City/[facility] Phon e Number [facility] - [address] [address] [facility] [address] documented in this encounter Visit Diagnoses Diagnosis Pancreatitis Chronic (HCC) Exocrine Pancreatic Insufficiency documented in this encounter Additional Health Concerns Assessment Noted Time PHQ-9 Depression Total Score: 18 04/28/2018 11:27 AM C DT documented as of this encounter Care Teams Operations And Maintenance Supervisor Relationship Specialty Start Date End Date Ewa Alejandro M.D. PCP - General 03/13/17 01/09/[address] [phone] documented as of this encounter
--- OUTSIDE RECORDS SUMMARY | 2022-05-28 06:51 | XMS_ITS | Encounter Summary ---
:1945 Author Organization [facility] Address [address] [place] [address] Care Team Providers Name Role Phone Ewa Alejandro M.D. Primary Care Provider [phone] Reason for Referral MRI/CAT/PET Scan (Routine) - Closed Specialty Diagnoses / Procedures Referred By Contact Refer red To Contact Radiology Diagnoses Pancreatitis Chronic (HCC) Daisy Liu M.D. [place] Procedures CT Abdomen without and with IV Contrast and Pelvis with IV Con CT Abdomen Pelvis without and with IV Contrast 200 [place], [place] [address] Referral ID Status Reason Start Date Expiration Date Visits Requ ested Visits Authorized [id number] Closed 06/24/2019 06/23/2020 1 1 Reason for Visit MRI/CAT/PET Scan (Routine) - Closed Specialty Diagnoses / Procedures Referred By Contact Refer red To Contact Radiology Diagnoses Pancreatitis Chronic (HCC) Daisy Liu M.D. [place] Procedures CT Abdomen without and with IV Contrast and Pelvis with IV Con CT Abdomen Pelvis without and with IV Contrast [address] [place], [place] [address] Referral ID Status Reason Start Date Expiration Date Visits Requ ested Visits Authorized [id number] Closed 06/24/2019 06/23/2020 1 1 Encounter Details Date Type Department Care Team Description 06/30/2019 Hospital Encounter Department of Daisy Liu Pancreat itis Chronic Radiology, Leanne Diaz M.D. (FORMERLY [facility]) Building, in [address] [place] [phone] 200 [facility] [phone] [place], [place] (Work) [phone] Social History Tobacco Use Types Packs/Day Years [...] do you attend baptist or Never 2021 congregation services? Do you [...] completed or the highest Martin, MEd, ACCOUNT EXECUTIVE, CAYDEN) degree you have received? Sex [...] Body Mass Index 29.42 11/09/2018 8:55 AM LADLE FILLER documented in this encounter Medications at Time [...] mouth 0 10/1305/06/2020 100 mg tablet daily. [id number] Take 2 capsules by 240 capsule 3 [...] ILEANA 14 DAY READER) [facility] flash glucose sensor Use as [...] POCT ORDERABLES - DEVICE Performing Organization Address City/[facility] Phon e Number [facility] [place] [facility] [address] [place] [address] (ABNORMAL) Creatinine, POCT (06/30/2019 3:47 PM CDT) athologist Signature eGFR-Black/Afri 68 >=60 06/30/2019 can Samoan, mL/min/BSA 3:54 PM CDT POCT Comment: ----ADDITIONAL [...] POCT ORDERABLES - DEVICE Performing Organization Address City/[facility] Phon e Number [facility] 200 [place], [place] [address] LABS documented in this encounter Visit Diagnoses [...] as of this encounter Care Teams Healthcare Translator Relationship Specialty Start Date End Date Ewa Alejandro M.D. PCP - General 03/13/17 01/09/[address] [place] [phone] documented as of this encounter
--- OUTSIDE RECORDS SUMMARY | 2022-05-28 06:51 | XMS_ITS | Encounter Summary ---
:1945 Author Organization [facility] Address [address] [place] [address] Care Team Providers Name Role Phone Ewa Alejandro M.D. Primary Care Provider [phone] Reason for Visit Reason Onset Date Comments Medicare Annual Wellness Visit with RN 06/18/2019 Encounter Details Date Type Department Care Team Description 06/18/2019 Clinical Communication Department of Estelle Chau Annual Community Internal L, R.N. Wellness Visit with Medicine in [address] [address] [place], [place] [phone] (Work) [phone] Social History Tobacco Use Types Packs/Day Years [...] do you attend restorationist or Never 2021 nondenominational services? Do you [...] completed or the highest Martin, MEd, PERSONAL INJURY LAW SPECIALIST, CAYDEN) degree you have received? Sex [...] as of this encounter Care Teams Nurse Rn Bsn Relationship Specialty Start Date End Date Ewa Alejandro M.D. PCP - General 03/13/17 01/09/[address] [phone] documented as of this encounter
--- OUTSIDE RECORDS SUMMARY | 2022-05-28 06:52 | XMS_ITS | Encounter Summary ---
:1945 Author Organization [facility] Address [address] [place] [address] Care Team Providers Name Role Phone Ewa Alejandro M.D. Primary Care Provider [phone] Encounter Details Date Type Department Care Team Description 09/16/2018 Clinical Communication Department of Family Kirill Torres [facility], Ewa Barclay, Clinic, in [place] [address] [place] [phone] Social History Tobacco Use Types Packs/Day Years [...] Jacquie Hamilton L.P.NMauro - 09/21/2018 2:02 PM CHANGE MANAGEMENT DIRECTOR Patient notified consult placed to [facility] GE MANAGEMENT DIRECTOR Telephone Encounter - Ewa Alejandro M.D. - 09/21/2018 1:53 PM CHANGE MANAGEMENT DIRECTOR Consult completed GE MANAGEMENT DIRECTOR Telephone Encounter - Jacquie Hamilton L.PMauroNMauro - 09/21/2018 10:41 AM CHANGE MANAGEMENT DIRECTOR Per patient biopsy was completed on left side of nose just under left eye. Per patient it is basal cell carcinoma. Request for Patients biopsy slides To be forwarded to [facility] dermatology onocology department was made by patient when [facility] was at the [facility] and the gave him the results of the biopsy completed there since patient wants further surgical proceedures and treatments completed in [facility] instead of the [facility] hospital[facility]clinic. Per patient if [place] does not receive slides he stated he will personally drive to the [facility] and get them. Per patient please submitt referal for [facility] services so appointment can be made after first of the year GE MANAGEMENT DIRECTOR Telephone Encounter - Estelle Chau R.N. - 09/17/2018 9:09 AM CST Attempted to call patient, voicemail is full unable to leave message. GE MANAGEMENT DIRECTOR Telephone Encounter - Ewa Alejandro M.D. - 09/16/2018 4:34 PM CHANGE MANAGEMENT DIRECTOR Yes but I need more information. Where was the biopsy? What is the type of cancer? How will we get the pathology slides to [facility]? I need to know this before I make the referral request. GE MANAGEMENT DIRECTOR Telephone Encounter - Estelle Chau R.N. - [...] He is asking to be referred to [facility] for this so he is asking if he could be referred to [facility] for this. Please advise. GE MANAGEMENT DIRECTOR Telephone Encounter - Mamta Olivares - 09/16/2018 1:33 PM CST Reason for Communication: Patient is calling, wants to talk to nurse before he scheduleds with doctor. Current Can Nursing/Provider leave a detailed message: yes Did the patient refuse triage through Nurse line? (for symptom based concerns)na Action Needed: please call patient back Name of Medication (if relevant): na GE MANAGEMENT DIRECTOR documented in this encounter Plan of Treatment Not on filedocumented as of this encounter Visit Diagnoses Diagnosis Basal Cell Carcinoma Breast - Primary documented in this encounter Additional Health Concerns Assessment Noted Time PHQ-9 Depression Total Score: 18 04/28/2018 11:27 AM C DT documented as of this encounter Care Teams Burlap Spreader Relationship Specialty Start Date End Date Ewa Alejandro M.D. PCP - General 03/13/17 01/09/20 [address] [place] [phone] documented as of this encounter
--- OUTSIDE RECORDS SUMMARY | 2022-05-28 06:52 | XMS_ITS | Encounter Summary ---
:1945 Author Organization [facility] Address [address] [place] [address] Care Team Providers Name Role Phone Ewa Alejandro M.D. Primary Care Provider Reason for Visit Reason Onset Date Comments Communication 12/22/2018 Comm Encounter Details Date Type Department Care Team Description 12/22/2018 Clinical Communication Department of Krzysztof Mitchell unication (Comm) [facility] [address] [place] [phone] Social History Tobacco Use Types Packs/Day Years [...] do you attend buddhist or Never 2021 jehovah's witness services? Do [...] as of this encounter Care Teams Title Department Manager Relationship Specialty Start Date End Date Ewa Alejandro M.D. PCP - General 03/13/17 01/09/20 [address] [place] [phone] documented as of this encounter
--- OUTSIDE RECORDS SUMMARY | 2022-05-28 06:52 | XMS_ITS | Encounter Summary ---
:1945 Author Organization [facility] Address [address] [place] [address] Care Team Providers Name Role Phone Ewa Alejandro M.D. Primary Care Provider [phone] Encounter Details Date Type Department Care Team Description 09/21/2018 Documentation Division of Gastroenterology Ran [place] in [facility] [place] [address] [place] [phone] Social History Tobacco Use Types Packs/Day Years [...] do you attend christian or Never 2021 voodoo services? Do you [...] documented as of this encounter Care Teams Tufting Machine Operator Single Needle Relationship Specialty Start Date End Date Ewa Alejandro M.D. PCP - General 03/13/17 01/09/20 [address], [place] [phone] documented as of this encounter
--- OUTSIDE RECORDS SUMMARY | 2022-05-28 06:52 | XMS_ITS | Encounter Summary ---
:1945 Author Organization [facility] Address [address] [place] [address] Care Team Providers Name Role Phone Ewa Alejandro M.D. Primary Care Provider [phone] Reason for Referral Outpatient (Routine) - Closed Specialty Diagnoses / Procedures Referred By Contact Refer anna To Contact Nephrology and Rob Cant[facility] [place] [address] [place] [address] Referral ID Status Reason Start Date Expiration Date Visits Requ ested Visits Authorized [id number] Closed 02/16/2019 02/16/2020 1 1 Reason for Visit Outpatient (Routine) - Closed Specialty Diagnoses / Procedures Referred By Contact Madelaine castillo To Contact Nephrology and Rob [facility] Neto.DMauro 200 [place] [address] Referral ID Status Reason Start Date Expiration Date Visits Requ ested Visits Authorized [id number] Closed 02/09/2019 02/09/2020 1 1 Encounter Details Date Type Department Care Team Description 02/16/2019 Office Visit Division of Nephrology Rob Cantu Hyp ertension Essential Primary (Primary Dx); and Hypertension in [place] Abnormal Oximetry [place], [place] [address] [facility] [address] [place] [phone] Social History Tobacco Use Types Packs/Day Years [...] do you attend bahai or Never 2021 tenriism services? Do you [...] as of this encounter Care Teams Tire Buffer Relationship Specialty Start Date End Date Ewa Alejandro M.D. PCP - General 03/13/17 01/09/[address] [phone] documented as of this encounter
--- OUTSIDE RECORDS SUMMARY | 2022-05-28 06:52 | XMS_ITS | Encounter Summary ---
:1945 Author Organization [facility] Address [address] [place] [address] Care Team Providers Name Role Phone Ewa Alejandro M.D. Primary Care Provider [phone] Reason for Referral Outpatient (Routine) - Closed Specialty Diagnoses / Referred By Referred To Cont act Procedures Contact Gastroenterology and Emil Zurita [facility] Hepatology [address] [place] [address] Referral ID Status Reason Start Date Expiration Date Visits Requ ested Visits Authorized [id number] Closed 09/15/2018 09/15/2019 1 1 TRICAL MAINTENANCE MAN MRI/CAT/PET Scan (Routine) - Closed Specialty Diagnoses / Procedures Referred By Contact Refer red To Contact Radiology Diagnoses Pancreatitis Chronic (HCC) Emil Zurita M.D. [facility] Procedures CT Abdomen Pelvis with IV Contrast MI CT ABD&PELVIS W CNTRST HC CT ABD&PELVIS W CNTRST MI CT ABD&PELVIS W CNTRST [address] [place], [place] [address] Referral ID Status Reason Start Date Expiration Date Visits Requ ested Visits Authorized [id number] Closed 09/15/2018 09/15/2019 1 1 TRICAL MAINTENANCE MAN Reason for Visit Outpatient (Routine) - Closed Specialty Diagnoses / Referred By Referred To Cont act Procedures Contact Gastroenterology and Emil Zurita [facility] Hepat[facility] [place] [address] [place] [address] Referral ID Status Reason Start Date Expiration Date Visits Requ ested Visits Authorized [id number] Closed 07/27/2018 07/27/2019 1 1 Encounter Details Date Type Department Care Team Description 09/15/2018 Office Visit Division of Greyson Zurita Ch Gastroenterology in Rhoda Stein (HCC) (Primary Dx) [place], [place] [address] [facility] [address] [place] [phone] Social History Tobacco Use Types Packs/Day Years [...] do you attend anabaptist or Never 2021 caodaism services? Do you [...] has my contact information. Multiple questions answered TRICAL MAINTENANCE MAN documented in this encounter Plan of Treatment Scheduled Referrals Name Type Priority Associated Order Schedule Diagnoses Gastroenterology and Outpatient Routine Expecte d: Hepatology office visit Referral 08/29 (clinic) (Approximate), Expires: 09/15/2020 documented as of this encounter Results CT Abdomen Pelvis with IV Contrast (10/11/2019 11:05 AM ELECTRICAL MAINTENANCE MAN) Anatomical Region Laterality Modality Abdomen, Pelvis, Abdominal RST LOS, N/A Comp uted Tomography, Computed Abdominal ARZ LOS, Abdominal FLA LOS Logan ography Specimen (Source) Anatomical Collection Method Collection Time Re ceived Time Location / / Volume Laterality 10/11/2019 1:13 PM ELECTRICAL MAINTENANCE MAN Impressions 10/11/2019 1:24 PM ELECTRICAL MAINTENANCE MAN No significant change from the most recent prior study; chronic changes of pancreatitis. Narrative 10/11/2019 1:24 PM ELECTRICAL MAINTENANCE MAN EXAM: ??CT ABDOMEN PELVIS WITH IV CONTRAST [...] 25-Hydroxyvitamin D2 and D3 (10/11/2019 9:52 AM ELECTRICAL MAINTENANCE MAN) athologist Signature 25-Hydroxy D2 <4.0 ng/mL 10/12/2019 SDSC 9:47 PM ELECTRICAL MAINTENANCE MAN 25-Hydroxy D3 15 ng/mL 10/12/2019 SDSC 9:47 PM ELECTRICAL MAINTENANCE MAN 25-Hydroxy D 15 (L) ng/mL 10/12/2019 SDSC Total 9:47 PM ELECTRICAL MAINTENANCE MAN Comment: Interpretation: 10-19 ng/mL (mild to mod erate deficiency) ----REFERENCE VALUE---- 25-HYDROXY D TOTAL (D2+D3) Optimum level s in the healthy population are 20-50, patients with bone disease may benefit from higher levels within this r stan. ----ADDITIONAL INFORMATION---- This test was developed and its performa nce characteristics determined by [facility] in a manner consistent with CLIA requirements. This test has not been cleared or approved by the [place] d and Drug Administration. Specimen Anatomical Collection Method Collection Time Receive d Time (Source) Location / / Volume Laterality Blood (Blood, 10/11/2019 9:52 AM 10/11/19 20 1:30 Venous) ELECTRICAL MAINTENANCE MAN PM ELECTRICAL MAINTENANCE MAN Emil Zurita M.D. LAB BLOOD ADD-ON Performing Organization Address City/State/ZIP Code Phon e Number [facility] [address] [address] JAMIE [place] [address] [facility] [place] [address] Laboratory Medicine and Pathology [address] [place] Vitamin A and Vitamin E (10/11/2019 9:52 AM ELECTRICAL MAINTENANCE MAN) athologist Signature Vitamin A 53.5 32.5 - 78.0 10/12/2019 SDS mcg/dL 10:37 PM ELECTRICAL MAINTENANCE MAN Comment: ----ADDITIONAL INFORMATION---- This test was developed and its performa nce characteristics determined by [facility] in a manner consistent with CLIA requirements. This test has not been cleared or approved by the [place] d and Drug Administration. A-Tocopherol, Vitamin E 10.9 5.5 - 17.0 mg/L 10/12/2019 1:[address]NCE MAN [facility] Specimen Anatomical Collection Method Collection Time Receive d Time (Source) Location / / Volume Laterality Blood (Blood, 10/11/2019 9:52 AM 10/11/19 4:31 Venous) ELECTRICAL MAINTENANCE MAN PM ELECTRICAL MAINTENANCE MAN Authorizing Provider Result Deloris Zurita M.D. LAB BLOOD NON ADD-ON Performing Organization Address City/[facility]/ZIP Code Phon e Number [facility] [address] [place], [place] [address] [facility] [address] Laboratory Medicine and Pathology [address] [place] (ABNORMAL) Glucose, Fasting (10/11/2019 9:52 AM ELECTRICAL MAINTENANCE MAN) P athologist Signature Glucose, P 149 (H) 70 - 100 10/11/2019 DTL mg/dL 11:01 AM ELECTRICAL MAINTENANCE MAN Last Intake 17 hr 10/11/2019 DTL 10:14 AM ELECTRICAL MAINTENANCE MAN Specimen Anatomical Collection Method Collection Time Receive d Time (Source) Location / / Volume Laterality Blood (Blood, 10/11/2019 9:52 AM 10/11/19 Venous) ELECTRICAL MAINTENANCE MAN 10:14 AM ELECTRICAL MAINTENANCE MAN Authorizing Provider Result Deloris Zurita M.D. LAB BLOOD NON ADD-ON Performing Organization Address City/State/ZIP Code Phon e Number [facility] - [address] [place], [place] [address] [facility] [place] [address] Laboratories-[facility] [address] (ABNORMAL) Hemoglobin A1c (10/11/2019 9:52 AM ELECTRICAL MAINTENANCE MAN) Analysis Performed At Patho logist Time Signature Hemoglobin A1c, 10.2 (H) 4.0 - 5.6 10/11/2019 DTL B % 12:15 PM ELECTRICAL MAINTENANCE MAN Comment: Hemoglobin A1c values greater than or eq ual to 6.5 percent are diagnostic for diabetes mellitus. ?? Diagnosis should be confirmed by repeat testing. ??In diabet ic patients, HbA1c goals should be discussed with healthcar e provider. Specimen Anatomical Collection Method Collection Time Receive d Time (Source) Location / / Volume Laterality Blood (Blood, 10/11/2019 9:52 AM 10/11/19 Venous) ELECTRICAL MAINTENANCE MAN 10:14 AM ELECTRICAL MAINTENANCE MAN Emil Zurita M.D. LAB BLOOD ADD-ON Performing Organization Address City/[facility] Phon e Number [facility] - [address] [place], [place] [address] [facility] [place] [address] Laboratories[address] (ABNORMAL) Creatinine with Estimated GFR (10/11/2019 9:52 AM ELECTRICAL MAINTENANCE MAN) athologist Signature Creatinine 1.26 0.74 - 10/11/2019 DTL 1.35 mg/dL 10:54 AM ELECTRICAL MAINTENANCE MAN eGFR-Non 55 (L) >=60 10/11/2019 DTL Black/ mL/min/BSA 10:54 AM ELECTRICAL MAINTENANCE MAN [place] Comment: ----ADDITIONAL INFORMATION---- Estimated GFR calculated using the 2009 CKD_EPI creatinine equation. eGFR-Black/ 64 >=60 mL/min/BSA 2019 10:54 AM ELECTRICAL MAINTENANCE MAN DTL Comment: ----ADDITIONAL INFORMATION---- Estimated GFR calculated using the 2009 CKD_EPI creatinine equation. Specimen Anatomical Collection Method Collection Time Receive d Time (Source) Location / / Volume Laterality Blood (Blood, 10/11/2019 9:52 AM 10/11/19 Venous) ELECTRICAL MAINTENANCE MAN 10:14 AM ELECTRICAL MAINTENANCE MAN Emil Zurita M.D. LAB BLOOD ADD-ON Performing Organization Address City/[facility] Code Phon e Number [facility] - [address] [place], [place] [address] [facility] [place] [place] [address] Laboratories[address] documented in this encounter Visit Diagnoses Diagnosis Pancreatitis Chronic (HCC) - Primary Pancreatitis Chronic (HCC) documented in this encounter Additional Health Concerns Assessment Noted Time PHQ-9 Depression Total Score: 18 04/28/2018 11:27 AM C DT documented as of this encounter Care Teams Digital Marketing Consultant Relationship Specialty Start Date End Date Ewa Alejandro M.D. PCP - General 03/13/17 01/09/20 [address] [place] [phone] documented as of this encounter
--- OUTSIDE RECORDS SUMMARY | 2022-05-28 06:52 | XMS_ITS | Encounter Summary ---
:1945 Author Organization [facility] Address [address] [place] [address] Care Team Providers Name Role Phone Ewa Alejandro M.D. Primary Care Provider [phone] Encounter Details Date Type Department Care Team Description 01/21/2019 Clinical Communication Department of [facility], [facility], LMauroPMauroNMauro [facility], [facility], [address] [place], [place] [address] [facility] [address] [place], [place] [phone] [address] (Work) [phone] Social History Tobacco Use Types Packs/Day Years [...] do you attend yazidi or Never 2021 druze services? Do you [...] changes that virgilios been going through lately- fci- that may have started his anxiety and sleeping issues lately.... documented in this encounter Plan of Treatment Not on filedocumented as of this encounter Visit Diagnoses Not on filedocumented in this encounter Additional Health Concerns Assessment Noted Time PHQ-9 Depression Total Score: 18 04/28/2018 11:27 AM C DT documented as of this encounter Care Teams Pc Analyst Relationship Specialty Start Date End Date Ewa Alejandro M.D. PCP - General 03/13/17 01/09/20 [address], [place] [phone] documented as of this encounter
--- OUTSIDE RECORDS SUMMARY | 2022-05-28 06:52 | XMS_ITS | Encounter Summary ---
:1945 Author Organization [facility] Address [address] [place] [address] Care Team Providers Name Role Phone Ewa Alejandro M.D. Primary Care Provider [phone] Reason for Visit Reason Onset Date Comments telephone call to patient 10/05/2018 Raven Sterling CNP/[place] Encounter Details Date Type Department Care Team Description 10/05/2018 Clinical Division of [place], telephone call to Communication Endocrinology in [place] Duque, patient (S [place], [place] R.N., [facility] [place], [address] [place]/Keyonna) [place] [address] [phone] Social History Tobacco Use Types Packs/Day Years [...] do you attend christian or Never 2021 hindu services? Do you [...] 3 pm Contact patient by:telephone Phone number: [phone] Thank you, Keyonna for the nurses PLEASE REPLY TO THE SECRETARIAL POOL WHEN REPLYING TO THIS MESSAGE--p RST END MARIAMA BAINS. Thank you! ATIONAL TECHNOLOGIST documented in this encounter Plan of Treatment Not on filedocumented as of this encounter Visit Diagnoses Not on filedocumented in this encounter Additional Health Concerns Assessment Noted Time PHQ-9 Depression Total Score: 18 04/28/2018 11:27 AM C DT documented as of this encounter Care Teams Ton Cylinder Inspector Relationship Specialty Start Date End Date Ewa Alejandro M.D. PCP - General 03/13/17 01/09/20 [address] [place] [phone] documented as of this encounter
--- OUTSIDE RECORDS SUMMARY | 2022-05-28 06:52 | XMS_ITS | Encounter Summary ---
:1945 Author Organization [facility] Address [address] [place] [address] Care Team Providers Name Role Phone Ewa Alejandro M.D. Primary Care Provider [phone] Encounter Details Date Type Department Care Team Description 02/08/2019 Diagnostic Division of Pulmonary Rob Cantu rtension Essential Primary; Medicine in Sunil Hale M.D. Sleep Apnea [place] [address] [facility] [address] [place] [address] [phone] Social History Tobacco Use Types Packs/Day Years [...] do you attend jainism or Never 2021 hinduism services? Do you [...] Code Phon e Number [facility] documented in this encounter Visit Diagnoses Diagnosis Hypertension Essential Primary Sleep Apnea documented in this encounter Additional Health Concerns Assessment Noted Time PHQ-9 Depression Total Score: 18 04/28/2018 11:27 AM C DT documented as of this encounter Care Teams Winding Lathe Operator Relationship Specialty Start Date End Date Ewa Alejandro M.D. PCP - General 03/13/17 01/09/[address] [place] [phone] documented as of this encounter
--- OUTSIDE RECORDS SUMMARY | 2022-05-28 06:52 | XMS_ITS | Encounter Summary ---
:1945 Author Organization [facility] Address [address] [place] [address] Care Team Providers Name Role Phone Ewa Alejandro M.D. Primary Care Provider [phone] Encounter Details Date Type Department Care Team Description 12/24/2018 Diagnostic Division of Nephrology Rob Cantu M.D. [address] [place] [address] Hypertensive Heart And and Hypertension in Meg Peralta Chronic Kidney Disease [place], [place] Without Heart Failure [address] [facility] And With Stage 2 (Mild) [place], [place] Chronic Kidney Disease [address] Social History Tobacco Use Types Packs/Day Years [...] do you attend worship or Never 2021 episcopalian services? Do you [...] documented as of this encounter Care Teams Patroller Relationship Specialty Start Date End Date Ewa Alejandro M.D. PCP - General 03/13/17 01/09/20 [address], [place] [address] documented as of this encounter
--- OUTSIDE RECORDS SUMMARY | 2022-05-28 06:52 | XMS_ITS | Encounter Summary ---
:1945 Author Organization [facility] Address [address] [place] [address] Care Team Providers Name Role Phone Ewa [...] Expiration Date Visits Requ ested Visits Authorized [id number] Closed 11/03/2018 11/03/2019 1 1 Encounter Details Date Type Department Care Team Description 11/09/2018 Office Visit Department of Family [place] Hyp ertensive Heart Disease Without Heart Failure (Primary Dx); Medicine, Ewa Barclay, Diabetes Mellitus Type 2 (HCC) Clinic, in [place] [address] [place] [phone] Social History Tobacco Use Types Packs/Day Years [...] do you attend methodist or Never 2021 muslim services? Do you [...] Comments Blood Pressure 138/76 11/09/2018 8:55 AM ANODIC OPERATOR Pulse 78 11/09/2018 8:55 AM ANODIC OPERATOR Temperature 37.1 ??C (98.8 ??F) 11/09/2018 8:55 AM ANODIC OPERATOR Respiratory Rate 16 11/09/2018 8:55 AM ANODIC OPERATOR Oxygen Saturation - - Inhaled Oxygen Concentration - - Weight 107 kg (235 lb 3.7 oz) 11/09/2018 8:55 AM ANODIC OPERATOR Height 187.5 cm (6' 1.82) 11/09/2018 8:55 AM ANODIC OPERATOR Body Mass Index 30.35 11/09/2018 8:55 AM ANODIC OPERATOR documented in this encounter Progress Notes Ewa Alejandro M.D. - 11/09/2018 9:00 AM CST CHIEF COMPLAINT/ REASON FOR VISIT Concerns about blood pressure. HISTORY OF PRESENT ILLNESS Jonnathan Costa is a 73 y.o. male who presents to the clinic today for concerns about blood pressure. He has been struggling with his providers at the [facility] and he has been trying [place] [facility] [place]. When he saw the stock chaser at [place], he was scheduled with a PA and she told him that he needs to use his CPAP, even though he has been intolerant to this. She was worried about his blood pressure. He notes that when he comes into the clinic, his blood pressure on the machines are typicallyin the 140s. He has seen GI, endocrine, and a soap chipper at [place] and they have a new regimen to [...] mouth daily. ??? flash glucose scanning reader (Crowdsourcing.orgSTYLE ILEANA 14 DAY READER) [facility] Use as directed 1 each 0 ??? [...] injection LW Addl Instr:Indicated for: Diabetes ??? oqsykc-czuonplj-gxqfckc (CREON) 6,000-19,000-30,[address] capsule Take [...] (HCC) 10/16/2009 Pulmonary symptomatology, diagnosis at the MD unclear, but probably some degree of COPD. [...] INSERTION INTRAOCULAR LENS Left 04/2008 At the MD ??? LASER OF PROSTATE W/ GREEN LIGHT PVP 08/28/2016 Greenlight photoselective vaporization of the prostate and cystoscopy with bladder biopsy and fulguration of a 2cm area; 08/28/[address] Prasanna Bernal at the [facility]. ??? TONSILLECTOMY ??? VASECTOMY PREVENTIVE SERVICES [...] will send referral to nephrology clinic at [facility]. #2 Diabetes Mellitus Type 2 (HCC) PLAN: [...] behalf by Karen Givens, a trained medical representative. The creation of this record is based on the scribe's personal observations and the provider's statements to them. This document has been ch ecked and approved by the attending provider. IC OPERATOR documented in this encounter Plan of Treatment Not on filedocumented as of this encounter Procedures Procedure Name Priority Date/Time Associated Diagnosis Comme nts HEMOGLOBIN A1C, B Routine 11/09/2018 10:11 Diabetes Mellitus R esults for this AM ANODIC OPERATOR Type 2 (HCC) procedure are i n the results section. BASIC METABOLIC Routine 11/09/2018 10:11 Hypertensive Heart Re sults for this PANEL, S/P AM ANODIC OPERATOR Disease Without Heart proced ure are in Failure the results section. documented in this encounter Results (ABNORMAL) Renal Function Panel (11/09/2018 10:11 AM ANODIC OPERATOR) P athologist Signature Potassium, S 4.3 3.6 - 5.2 11/09/2018 [facility] mmol/L 1:44 PM [facility] [place] [facility] Sodium, S 143 135 - 145 11/09/2018 [facility] mmol/L 1:44 PM [facility] Chloride, S 106 98 - 107 11/09/2018 [facility] mmol/L 1:44 PM [facility] [place] Bicarbonate, S 24 22 - 29 11/09/2018 [facility] mmol/L 1:44 PM [facility] Anion Gap 13 7 - 15 11/09/2018 [facility] 1:44 PM [facility] BUN (Blood Urea 28 (H) 8 - 24 11/09/2018 [facility] Nitrogen), S mg/dL 1:44 PM [facility] Creatinine 1.13 0.74 - 11/09/2018 [facility] 1.35 mg/dL 1:44 PM [facility] eGFR-Non 63 >=60 11/09/2018 [facility] Black/ mL/min/BSA 1:44 PM [facility] [place] [facility] Comment: ----ADDITIONAL INFORMATION---- Estimated GFR calculated using the 2009 CKD_EPI creatinine equation. eGFR-Black/ 73 >=60 mL/min/BSA 2018 1:44 PM [facility] Comment: ----ADDITIONAL INFORMATION---- Estimated GFR calculated using the 2009 CKD_EPI creatinine equation. Calcium, Total, S 9.7 8.8 - 10.2 11/09/2018 1:44 PM [facility] mg/dL [facility] Glucose, S 176 (H) 70 - 140 mg/dL 11/09/2018 1:44 PM [facility] [place] Albumin, S 4.4 3.5 - 5.0 g/dL 11/09/2018 1:44 PM [facility] Phosphorus 3.9 2.5 - 4.5 mg/dL 11/09/2018 3:52 PM [facility] (Inorganic), S [facility] Specimen Anatomical Collection Method Collection Time Receive d Time (Source) Location / / Volume Laterality Blood (Blood, 11/09/2018 10:11 11/09/2018 Venous) AM ANODIC OPERATOR 12:58 PM ANODIC OPERATOR Narrative [facility] - 11/09/2018 3:52 PM ANODIC OPERATOR Specimen Information: Specimen ID: [id number] Specimen Type: Blood Specimen Collection Start Date: 11/09/19 10:11 AM Specimen Received Date: 11/09/2018 12:58 PM Specimen ID: [id number] Specimen Type: Blood Specimen Collection Start Date: 11/09/19 10:11 AM Specimen Received Date: 11/09/2018 ??3:3 7 PM Ewa Alejandro M.D. LAB BLOOD ADD-ON Performing Organization Address City/State/ZIP Code Phon e Number [facility] [address] [place] [address] [facility] [address] [place] [address], U [facility] LAB (ABNORMAL) CBC with Differential (11/09/2018 10:11 AM ANODIC OPERATOR) [facility] Method Time Signature Hemoglobin 12.8 (L) 13.2 - 11/09/2018 [facility] 16.6 g/dL 10:17 AM [facility] Hematocrit 37.4 (L) 38.3 - 11/09/2018 [facility] 48.6 % 10:17 AM ANODIC OPERATOR [facility] Erythrocytes 4.28 (L) 4.35 - 11/09/2018 [facility] 5.65 10:17 AM ANODIC OPERATOR HEALTH x10(12)/L [facility] MCV 87.4 78.2 - 11/09/2018 [facility] 97.9 fL 10:17 AM [facility] RBC Distrib Width 13.6 11.8 - 11/09/2018 [facility] 14.5 % 10:17 AM [facility] Platelet Count 204 135 - 317 11/09/2018 [facility] x10(9)/L 10:17 AM [facility] Leukocytes 6.2 3.4 - 9.6 11/09/2018 [facility] x10(9)/L 10:17 AM [facility] Neutrophils 3.56 1.56 - 11/09/2018 [facility] 6.45 10:17 AM ANODIC OPERATOR HEALTH x10(9)/L [facility] [facility] Lymphocytes 1.47 0.95 - 11/09/2018 [facility] 3.07 10:17 AM [employer] x10(9)/L [facility] [place] [facility] Monocytes 0.38 0.26 - 11/09/2018 [facility] 0.81 10:17 AM ANODIC OPERATOR HEALTH x10(9)/L [facility] [place] [facility] Eosinophils 0.71 (H) 0.03 - 11/09/2018 [facility] 0.48 10:17 AM ANODIC OPERATOR HEALTH x10(9)/L [facility] [place] [facility] Basophils 0.08 0.01 - 11/09/2018 [facility] 0.08 10:17 AM ANODIC OPERATOR HEALTH x10(9)/L [facility] [place] [facility] Specimen Anatomical Collection Method Collection Time Receive d Time (Source) Location / / Volume Laterality Blood (Blood, 11/09/2018 10:11 11/09/2018 Venous) AM ANODIC OPERATOR 10:11 AM ANODIC OPERATOR Ewa Alejandro M.D. LAB BLOOD ADD-ON Performing Organization Address City/State/ZIP Code Phon e Number [facility] [address] [place] [address] LAB (ABNORMAL) Hemoglobin A1c (11/09/2018 10:11 AM ANODIC OPERATOR) P athologist Signature Hemoglobin A1c, 8.4 (H) 4.2 - 5.6 11/09/2018 [facility] B % 1:18 PM [facility] Comment: Hemoglobin A1c values greater than or eq ual to 6.5 percent are diagnostic for diabetes mellitus. ?? Diagnosis should be confirmed by repeat testing. ??In diabet ic patients, HbA1c goals should be discussed with healthcar e provider. Specimen Anatomical Collection Method Collection Time Receive d Time (Source) Location / / Volume Laterality Blood (Blood, 11/09/2018 10:11 11/09/2018 Venous) AM ANODIC OPERATOR 12:58 PM ANODIC OPERATOR Ewa Alejandro M.D. LAB BLOOD ADD-ON Performing Organization Address City/State/ZIP Code Phon e Number [email or web address] [address], [place] [address] LAB (ABNORMAL) Basic Metabolic Panel (11/09/2018 10:11 AM ANODIC OPERATOR) P athologist Signature Potassium, S 4.2 3.6 - 5.2 11/09/2018 [facility] mmol/L 1:33 PM [facility] Sodium, S 142 135 - 145 11/09/2018 [facility] mmol/L 1:33 PM [facility] Chloride, S 105 98 - 107 11/09/2018 [facility] mmol/L 1:33 PM [facility] Bicarbonate, S 24 22 - 29 11/09/2018 [facility] mmol/L 1:33 PM [facility] Anion Gap 13 7 - 15 11/09/2018 [facility] 1:33 PM [facility] BUN (Blood Urea 28 (H) 8 - 24 11/09/2018 [facility] Nitrogen), S mg/dL 1:33 PM [facility] Creatinine 1.13 0.74 - 11/09/2018 [facility] 1.35 mg/dL 1:33 PM [facility] eGFR-Non 63 >=60 11/09/2018 [facility] Black/ mL/min/BSA 1:33 PM [facility] [place] [facility] Comment: ----ADDITIONAL INFORMATION---- Estimated GFR calculated using the 2009 CKD_EPI creatinine equation. eGFR-Black/ 73 >=60 mL/min/BSA 2018 1:33 PM [facility] [place] [facility] Comment: ----ADDITIONAL INFORMATION---- Estimated GFR calculated using the 2009 CKD_EPI creatinine equation. Calcium, Total, S 9.7 8.8 - 10.2 mg/dL 11/09/2018 1:33 PM [facility] Glucose, S 177 (H) 70 - 140 mg/dL 11/09/2018 1:33 PM [facility] Specimen Anatomical Collection Method Collection Time Receive d Time (Source) Location / / Volume Laterality Blood (Blood, 11/09/2018 10:11 11/09/2018 Venous) AM ANODIC OPERATOR 12:57 PM ANODIC OPERATOR Ewa Alejandro M.D. LAB BLOOD ADD-ON Performing Organization Address City/State/ZIP Code Phon e Number [facility] [address] [place] [address] LAB documented in this encounter Visit Diagnoses Diagnosis Hypertensive Heart Disease Without Heart Failure - Primary Diabetes Mellitus Type 2 (HCC) Hypertensive Heart Disease Without Heart Failure documented in this encounter Additional Health Concerns Assessment Noted Time PHQ-9 Depression Total Score: 18 04/28/2018 11:27 AM C DT documented as of this encounter Care Teams Merchandise Pickup/Receiving Associate Relationship Specialty Start Date End Date Ewa Alejandro M.D. PCP - General 03/13/17 01/09/[address] [address] documented as of this encounter
--- OUTSIDE RECORDS SUMMARY | 2022-05-28 06:52 | XMS_ITS | Encounter Summary ---
:1945 Author Organization [facility] Address [address] [place] [address] Care Team Providers Name Role Phone Ewa Alejandro M.D. Primary Care Provider [phone] Reason for Visit Reason Comments Bladder Cancer 6 month surveillance Encounter Details Date Type Department Care Team Description 11/23/2018 Procedure visit Department of Urology Prasanna Bernal, Cancer Bladder in [place] Personal History [place] [address] [facility] [place] [phone] Social History Tobacco Use Types Packs/Day [...] do you attend mosque or Never 2021 moravian services? Do you [...] Comments Blood Pressure 150/70 11/23/2018 10:13 AM GUILLOTINE TRIMMER Pulse 75 11/23/2018 10:13 AM GUILLOTINE TRIMMER Temperature 37 ??C (98.6 ??F) 11/23/2018 10:13 AM GUILLOTINE TRIMMER Respiratory Rate - - Oxygen Saturation - [...] Prasanna Bernal M.D. 11/23/18 10:42 AM ?? LOTINE TRIMMER documented in this encounter Plan of Treatment Not on filedocumented as of this encounter Procedures Procedure Name Priority Date/Time Associated Diagnosis Comme nts CYTOLOGY NON-SHELL SHOP SUPERVISOR Routine 11/23/2018 11:01 AM Cancer Bladder Re sults for this GUILLOTINE TRIMMER Personal History procedure a re in the results section. documented in this encounter Results (ABNORMAL) Cytology Non-SHELL SHOP SUPERVISOR (Scheduled) (05/17/2019 8:53 AM CDT) Component Value Ref Test Analysis Performed At [facility] Range Method Time Signature Gross Description Received [...] Phon e Number [facility] [address] [place] [address] CYTOLOGY Cytology Non-SHELL SHOP SUPERVISOR (11/23/2018 11:01 AM GUILLOTINE TRIMMER) Component Value Ref Test Analysis Performed At [facility] Range Method Time Signature Gross Description Received 60 11/24/2018 [facility] IC ml of yellow 10:04 AM HEALTH alcohol fixed [facility] SYSTEM fluid [place] CYTOLOGY Collection void 11/24/2018 [facility] Procedure 10:04 AM [facility] CYTOLOGY Fixative 50% alcohol 11/24/2018 [facility] 10:04 AM [facility] CYTOLOGY Source A. Urine, 11/24/2018 [facility] voided 10:04 AM [facility] CYTOLOGY Clinical History bladder 11/24/2018 [facility] cancer 10:04 AM [facility] CYTOLOGY Report Brady Goodrich MD 11/24/2018 [facility] electronically I verify that I have examined all relevant slides/ma terials 10:04 AM HEALTH signed by for the specimen(s) and rendered or confirmed the diagnosi s. [facility] CYTOLOGY 11/24/2018 [facility] 10:04 AM [facility] CYTOLOGY Interpretation A. Urine, voided (cytospin): Negative for High-Grade 11/24/2018 [facility] Urothelial Carcinoma. 10:04 AM [facility] CYTOLOGY Specimen Anatomical Collection Method Collection Time Receive d Time (Source) Location / / Volume Laterality Varies 11/23/2018 11:01 11/24/2018 8:17 AM [facility] AM [facility] Narrative This result has an attachment that is no t available. Prasanna Bernal M.D. LAB SURG PATH ORDERABLES Performing Organization Address City/State/ZIP Code Phon e Number [facility] [address] [place] [address] CYTOLOGY documented in this encounter Visit Diagnoses Diagnosis Personal History Of Malignant Neoplasm O f Bladder documented in this encounter Additional Health Concerns Assessment Noted Time PHQ-9 Depression Total Score: 18 04/28/2018 11:27 AM C DT documented as of this encounter Care Teams Market Research Assistant Relationship Specialty Start Date End Date Ewa Alejandro M.D. PCP - General 03/13/17 01/09/[address] [phone] documented as of this encounter
--- OUTSIDE RECORDS SUMMARY | 2022-05-28 06:52 | XMS_ITS | Encounter Summary ---
:1945 Author Organization [facility] Address [address] [place] [address] Care Team Providers Name Role Phone Ewa Alejandro M.D. Primary Care Provider [phone] Reason for Visit Reason Onset Date Comments Medication Problem 01/25/2019 Encounter Details Date Type Department Care Team Description 01/25/2019 Clinical Communication Division of Lissy Cantu Problem Nephrology and Rob Barber M.D. Hypertension in [address] [place] [address] [address] [facility] [phone] [phone] Social History Tobacco Use Types Packs/Day Years [...] do you attend mosque or Never 2021 denominational services? Do you [...] documented as of this encounter Care Teams Tank Inspector Relationship Specialty Start Date End Date Ewa Alejandro M.D. PCP - General 03/13/17 01/09/20 [address] [place] [phone] documented as of this encounter
--- OUTSIDE RECORDS SUMMARY | 2022-05-28 06:52 | XMS_ITS | Encounter Summary ---
:1945 Author Organization [facility] Address [address] [place] [address] Care Team Providers Name Role Phone Ewa Alejandro M.D. Primary Care Provider [phone] Encounter Details Date Type Department Care Team Description 10/07/2018 Clinical Communication Division of Nicholas Triana, Endocrinology in [place], [place] [address] [facility] [address] [place] [phone] [phone] Social History Tobacco Use Types Packs/Day Years [...] you attend oriental orthodox or Never 2021 tenriism services? Do you [...] as of this encounter Care Teams Quality Systems Engineer Relationship Specialty Start Date End Date Ewa Alejandro M.D. PCP - General 03/13/17 01/09/20 [address], [place] [address] documented as of this encounter
--- OUTSIDE RECORDS SUMMARY | 2022-05-28 06:52 | XMS_ITS | Encounter Summary ---
:1945 Author Organization [facility] Address [address] [place] [address] Care Team Providers Name Role Phone Ewa Alejandro M.D. Primary Care Provider [phone] Encounter Details Date Type Department Care Team Description 09/21/2018 Documentation Division of Gastroenterology Ran Vilch[place] in [facility] cameron [address] [place] [phone] Social History Tobacco Use Types Packs/Day Years [...] documented as of this encounter Care Teams Bacteriology Technician Relationship Specialty Start Date End Date Ewa Alejandro M.D. PCP - General 03/13/17 01/09/20 [address], [place] [address] documented as of this encounter
--- OUTSIDE RECORDS SUMMARY | 2022-05-28 06:52 | XMS_ITS | Encounter Summary ---
:1945 Author Organization [facility] Address [address] [place] [address] Care Team Providers Name Role Phone Ewa Alejandro M.D. Primary Care Provider [phone] Reason for Visit Reason Onset Date Comments AWV 10/09/2018 Encounter Details Date Type Department Care Team Description 10/09/2018 Clinical Communication [facility]ana [facility] in [place] [address] [place] [address] Social History Tobacco Use Types [...] He thinks his depression was related to halfway/although maybe related to the pancreatitis that he developed at the same time. Y MACHINERY OPERATOR Telephone Encounter - Caroline Plunkett R.N. - 10/09/2018 2:53 PM CST Called patient to discuss scheduling a Medicare Annual Wellness Visit. Patient has a lot going on right now so wishes to delay scheduling one for 6 months. I will send to scheduling to call again and place an order. Best time to call him is 7:30am. Y MACHINERY OPERATOR documented in this encounter Plan of Treatment Not on filedocumented as of this encounter Visit Diagnoses Diagnosis Annual Medicare Examination Return - Jennifer masoud documented in this encounter Additional Health Concerns Assessment Noted Time PHQ-9 Depression Total Score: 18 04/28/2018 11:27 AM C DT documented as of this encounter Care Teams Supervisor Pressing Department Relationship Specialty Start Date End Date Ewa Alejandro M.D. PCP - General 03/13/17 01/09/20 [address] [place] [address] documented as of this encounter
--- OUTSIDE RECORDS SUMMARY | 2022-05-28 06:52 | XMS_ITS | Encounter Summary ---
:1945 Author Organization [facility] Address [address] [place] [address] Care Team Providers Name Role Phone Ewa Alejandro M.D. Primary Care Provider [phone] Encounter Details Date Type Department Care Team Description 01/21/2019 Orders Only Department of Family [place] [facility] [address] [place] [phone] (Wo rk) Social History Tobacco Use Types [...] do you attend anabaptist or Never 2021 holiness services? Do you [...] as of this encounter Care Teams Information Technology Specialist Relationship Specialty Start Date End Date Ewa Alejandro M.D. PCP - General 03/13/17 01/09/[address] [phone] documented as of this encounter
--- OUTSIDE RECORDS SUMMARY | 2022-05-28 06:52 | XMS_ITS | Encounter Summary ---
:1945 Author Organization [facility] Address [address] [place] [address] Care Team Providers Name Role Phone Ewa Alejandro M.D. Primary Care Provider [phone] Reason for Referral Outpatient (Routine) - Closed Specialty Diagnoses / Procedures Referred By Contact Madelaine castillo To Contact Nephrology and Rob Cantu [facility] Hypertension [place] [address] [place] [address] Referral ID Status Reason Start Date Expiration Date Visits Requ ested Visits Authorized [id number] Closed 11/24/2018 11/24/2019 1 1 WARE INSTALLATION ENGINEER Reason for Visit Outpatient (Routine) - Closed Specialty Diagnoses / Procedures Referred By Contact Madeliane castillo To Contact Nephrology and Diagnoses Hypertensive 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 Do you [...] Comments Blood Pressure 152/81 11/24/2018 11:20 AM SOFTWARE INSTALLATION ENGINEER Pulse 77 11/24/2018 11:20 AM SOFTWARE INSTALLATION ENGINEER Temperature - - Respiratory Rate - - Oxygen Saturation - - Inhaled Oxygen Concentration - - Weight 108 kg (238 lb 15.7 oz) 11/24/2018 10:21 AM SOFTWARE INSTALLATION ENGINEER Height - - Body Mass Index 30.83 11/09/2018 8:55 AM SOFTWARE INSTALLATION ENGINEER documented in this encounter Consult Notes Rob [...] agreement with this plan. Rob Cantu M.D. WARE INSTALLATION ENGINEER documented in this encounter Plan of [...] documented as of this encounter Care Teams Claims Specialist Relationship Specialty Start Date End Date Ewa Alejandro M.D. PCP - General 03/13/17 01/09/20 [address] [phone] documented as of this encounter
--- OUTSIDE RECORDS SUMMARY | 2022-05-28 06:52 | XMS_ITS | Encounter Summary ---
:1945 Author Organization [facility] Address [address] [place] [address] Care Team Providers Name Role Phone Ewa Alejandro M.D. Primary Care Provider [phone] Encounter Details Date Type Department Care Team Description 02/18/2019 Clinical Communication Division of Nicholas Triana, Endocrinology in [place], [place] [address] [facility] [address] [place] [address] [phone] Social History Tobacco Use Types Packs/Day Years [...] do you attend congregational or Never 2021 christian services? Do you [...] as of this encounter Care Teams Nurse Reviewer Relationship Specialty Start Date End Date Ewa Alejandro M.D. PCP - General 03/13/17 01/09/[address] [address] documented as of this encounter
--- OUTSIDE RECORDS SUMMARY | 2022-05-28 06:52 | XMS_ITS | Encounter Summary ---
:1945 Author Organization [facility] Address [address] [place] [address] Care Team Providers Name Role Phone Ewa Alejandro M.D. Primary Care Provider [phone] Encounter Details Date Type Department Care Team Description 09/30/2018 Clinical Support Department of Nicholas Triana M .D. [address] [place] [address] Pancreatitis Chronic Nutrition in Luciana Sterling R.N., [facility] [address] [place] [phone] ([facility]) [place], [place] [address] [place] [address] Social History Tobacco Use Types Packs/Day Years [...] do you attend faith or Never 2021 yarsanism services? Do you [...] 1. Pancreatitis Chronic (HCC) Nutrition - clinical document improvement educator visit (clinic) Patient arrives to diabetes [...] Time spent with patient (minutes): 90 Minutes L INSPECTOR MOTORCYLES documented in this encounter Miscellaneous Notes Addendum Note - Luciana Sterling R.N. - 09/30/2018 11:00 AM FINAL INSPECTOR MOTORCYLES Addended by: LUCIANA STERLING on: 09/30/2018 01:11 PM Modules accepted: Orders L INSPECTOR MOTORCYLES Addendum Note - Luciana Sterling R.N. - 09/30/2018 11:00 AM FINAL INSPECTOR MOTORCYLES Addended by: LUCIANA STERLING on: 09/30/2018 02:02 PM Modules accepted: Orders L INSPECTOR MOTORCYLES documented in this encounter Plan of Treatment Not on filedocumented as of this encounter Visit Diagnoses Diagnosis Pancreatitis Chronic (HCC) documented in this encounter Additional Health Concerns Assessment Noted Time PHQ-9 Depression Total Score: 18 04/28/2018 11:27 AM C DT documented as of this encounter Care Teams Child Care Centre Manager Relationship Specialty Start Date End Date Ewa Alejandro M.D. PCP - General 03/13/17 01/09/[address], [place] [address] documented as of this encounter
--- OUTSIDE RECORDS SUMMARY | 2022-05-28 06:52 | XMS_ITS | Encounter Summary ---
:[address] [facility] Address [address] [place] [address] Care Team Providers Name Role Phone Ewa Alejandro M.D. Primary Care Provider [phone] Reason for Referral Outpatient (Routine) - Closed Specialty Diagnoses / Procedures Referred By Contact Refer red To Contact Nephrology and Rob Cantu [place] [facility] M.DMauro 200 [place] [address] Referral ID Status Reason Start Date Expiration Date Visits Requ ested Visits Authorized [id number] Closed 02/09/2019 02/09/2020 1 1 Outpatient (Routine) - Closed Specialty Diagnoses / Procedures Referred By Contact Refer anna To Contact Sleep Medicine Diagnoses Hypertension Essential Primary Abnormal Oximetry Rob Cantu M.D. [facility] 200 [place] [address] Referral ID Status Reason Start Date Expiration Date Visits V isits Requested Authorized [id number] Closed Specialty 02/09/2019 02/09/2020 1 1 Services Required Reason for Visit Outpatient (Routine) - Closed Specialty Diagnoses / Procedures Referred By Contact Madelaine castillo To Contact Nephrology and Rob Cantu [place] [facility] M.DMauro 200 [place] [address] Referral ID Status Reason Start Date Expiration Date Visits Requ ested Visits Authorized [id number] Closed 01/26/2019 01/26/2020 1 1 Encounter Details Date Type Department Care Team Description 02/09/2019 Office Visit Division of Nephrology Alondra Rob Hyp ertension Essential Primary (Primary Dx); and Hypertension in Pato Barber Abnormal Oximetry [place], [place] 200 [facility] 200 [place] [address] [phone] Social History Tobacco Use Types Packs/Day Years [...] do you attend denominational or Never 2021 mandaeism services? Do you [...] Name Type Priority Associated Diagnoses Order [facility] Sleep Medicine - Outpatient Referral Routine Hypertension [...] documented as of this encounter Care Teams Photoradio Operator Relationship Specialty Start Date End Date Ewa Alejandro M.D. PCP - General 6/15/17 [address] [place] [address] documented as of this encounter
--- OUTSIDE RECORDS SUMMARY | 2022-05-28 06:52 | XMS_ITS | Encounter Summary ---
:1945 Author Organization [facility] Address [address] [place] [address] Care Team Providers Name Role Phone Ewa Alejandro M.D. Primary Care Provider [phone] Reason for Referral Specialty Diagnoses / Procedures Referred By Contact Refer red To Contact Consuelo Tom M.D. [address] [address] Referral ID Status Reason Start Date Expiration Date Visits Requ ested Visits Authorized ERY LEADPERSON Reason for Visit Outpatient (Routine) - Closed Specialty Diagnoses / Procedures Referred By Contact Refer red To Contact Endocrinology Diagnoses Pancreatitis Chronic (HCC) Emil Zurita M.D. [address] [address] Referral ID Status Reason Start Date Expiration Date Visits Requ ested Visits Authorized [id number] Closed 08/19/2018 08/19/2019 1 1 Encounter Details Date Type Department Care Team Description 09/18/2018 Comprehensive Visit Division of Anjelica Bell APRN, C.N.P., M.S. [address] [place] [address] Pancreatitis Chronic Endocrinology in Consuelo Tom M.D. [address] [place] [phone] ([facility]) [place], [place] [address] [place] [address] Social History Tobacco Use Types Packs/Day Years [...] do you attend islam or Never 2021 islam services? Do you [...] min or its worst immediately before eating. ERY LEADPERSON documented in this encounter Consult Notes Consuelo Tom M.D. - 09/18/2018 2:30 PM CST ENDOCRINOLOGY, METABOLISM, DIABETES AND NUTRITION Diabetes Consult Note REFERRAL Emil Zurita M.D. DEMOGRAPHIC INFORMATION Patient Name: Jonnathan Costa Age/ Sex: 73 y.o. male Date of : 1945 Address: [address] [place] [address] Service Date/ Time: 09/18/2018 14:12 Multiplex Operator: Consuelo Tom M.D. SUBJECTIVE CHIEF COMPLAINT/ PURPOSE [...] skin at bedtime., Disp: , Rfl: ??? vpvcax-xhkfeexv-zhydkyc (CREON) 6,000-19,000-30,[address] capsule, Take [...] of Apnea Sleep Obstructive (06/18/2011); Asthma ([facility]) (10/16/2009); Cancer Bladder Personal History (05/09/2016); Depression Anxiety (11/18/2006); Diabetes Mellitus Type 2 With Diabetic Neuropathy ([facility]) (11/18/2006); Diverticulosis Colon (02/16/2018); Dysfunction Erectile (11/24/2006); Hernia Umbilical (05/24/2009); Hernia Ventral (06/29/2009); Hypercholesterolemia (09/23/2007); Hyperplasia Prostate Benign Localized Without Obstruction (11/18/2006); Hypertension EssentialPrimary (09/23/2007); Polyp Colon Adenomatous (07/03/2009); Polyp Colon Hyperplastic (07/03/2009); Rhinitis Chronic (12/31/2010); Smoking Tobacco Use Personal History (1979); and Stroke ([facility]) (09/17/2017). has a past surgical history that [...] Stroke (HCC) #14 Cancer Bladder Family History ERY LEADPERSON documented in this encounter Miscellaneous Notes Addendum Note - Consuelo Tom M.D. - 09/18/2018 2:30 PM BINDERY LEADPERSON Addended by: CONSUELO TOM on: 09/18/2018 03:19 PM Modules accepted: Orders ERY LEADPERSON documented in this encounter Plan of Treatment Scheduled Referrals Name Type Priority Associated Diagnoses Order S chedule Nutrition - Outpatient Referral Routine Pancreatitis Chronic Expected: tariff clerk (HCC) 09/18/2018 visit (clinic) (Approximate) , Expires: 09/18/2019 documented as of this encounter Visit Diagnoses Diagnosis Pancreatitis Chronic (HCC) documented in this encounter Additional Health Concerns Assessment Noted Time PHQ-9 Depression Total Score: 18 04/28/2018 11:27 AM C DT documented as of this encounter Care Teams Certified Public Accountant Relationship Specialty Start Date End Date Ewa Alejandro M.D. PCP - General 03/13/17 01/09/20 [address] [place] [address] documented as of this encounter
--- OUTSIDE RECORDS SUMMARY | 2022-05-28 06:52 | XMS_ITS | Encounter Summary ---
:1945 Author Organization [facility] Address [address] [place] [address] Care Team Providers Name Role Phone Ewa Alejandro M.D. Primary Care Provider [phone] Reason for Referral Outpatient (Routine) - Closed Specialty Diagnoses / Procedures Referred By Contact Madelaine castillo To Contact Nephrology and Rob Cantu [facility] [place] [address] [place] [address] Referral ID Status Reason Start Date Expiration Date Visits Requ ested Visits Authorized [id number] Closed 12/24/2018 12/24/2019 1 1 Reason for Visit Outpatient (Routine) - Closed Specialty Diagnoses / Procedures Referred By Contact Madelaine castillo To Contact Nephrology and Rob Cantu [place] [facility] [place] [address] [place] [address] Referral ID Status Reason Start Date Expiration Date Visits Requ ested Visits Authorized [id number] Closed 11/24/2018 11/24/2019 1 1 Encounter Details Date Type Department Care Team Description 12/24/2018 Office Visit Division of Nephrology Rob Cantu Hyp ertension Essential and Hypertension in [place] Barber Primary (Primary Dx) [place], [place] [address] [facility] [address] [place] [address] [phone] Social History Tobacco Use Types Packs/Day Years [...] do you attend latter-day or Never 2021 yazidism services? Do you [...] documented as of this encounter Care Teams Appliquer Relationship Specialty Start Date End Date Ewa Alejandro M.D. PCP - General 03/13/17 01/09/20 [address], [place] [address] documented as of this encounter
--- OUTSIDE RECORDS SUMMARY | 2022-05-28 06:52 | XMS_ITS | Encounter Summary ---
:1945 Author Organization [facility] Address [address] [place] [address] Care Team Providers Name Role Phone Ewa Alejandro M.D. Primary Care Provider Encounter Details Date Type Department Care Team Description 11/23/2018 Clinical Communication Department of [facility]ia [facility] in [place], [place] [address] [place] [address] [place], [place] [phone] [address] Social History Tobacco Use Types Packs/Day [...] do you attend yazidi or Never 2021 holiness services? Do you [...] as of this encounter Care Teams Medical Record Transcriber Relationship Specialty Start Date End Date Ewa Alejandro M.D. PCP - General 03/13/17 01/09/20 [address], [place] [address] documented as of this encounter
--- OUTSIDE RECORDS SUMMARY | 2022-05-28 06:52 | XMS_ITS | Encounter Summary ---
:1945 Author Organization [facility] Address [address] [place] [address] Care Team Providers Name Role Phone Ewa Alejandro M.D. Primary Care Provider [phone] Reason for Visit Outpatient (Routine) - Closed Specialty Diagnoses / Procedures Referred By Contact Refer red To Contact Sleep Medicine Diagnoses Hypertension Essential Primary Abnormal Oximetry Rob Cantu M.D. [facility] [address] [place] [address] Referral ID Status Reason Start Date Expiration Date Visits V isits Requested Authorized [id number] Closed Specialty 02/09/2019 02/09/2020 1 1 Services Required Encounter Details Date Type Department Care Team Description 02/12/2019 Comprehensive Visit Center for Sleep Americo Padilla rtension Essential Primary; Medicine in [place]achael Arias, Abnormal Oximet [facility] [address] [place] [address] [place] [address] [phone] Social History Tobacco Use Types Packs/Day Years [...] do you attend hindu or Never 2021 orthodoxy services? Do you [...] of obstructive sleep ap[facility] approximately5 [facility] 6 years ago. He tried [...] asked him to please call my secretary administrative assistant if he would like to schedule a [...] as of this encounter Care Teams Mechanical Applications Engineer Relationship Specialty Start Date End Date Ewa Alejandro M.D. PCP - General 03/13/17 01/09/[address] [address] documented as of this encounter
--- OUTSIDE RECORDS SUMMARY | 2022-05-28 06:52 | XMS_ITS | Encounter Summary ---
:1945 Author Organization [facility] Address [address] [place] [address] Care Team Providers Name Role Phone Ewa Alejandro M.D. Primary Care Provider [phone] Encounter Details Date Type Department Care Team Description 10/06/2018 Clinical Communication Department of Family Kirill Torres [facility], Ewa Jack, [facility], in [place] [address] [place] [address] [phone] Social History Tobacco Use Types Packs/Day Years [...] do you attend taoism or Never 2021 judaism services? Do you [...] Morelia Garcia L.P.NMauro - 10/06/2018 12:44 PM INVENTORY COORDINATOR Please advise on the request for a referral to Derm surgery in [place]. NTORY COORDINATOR Telephone Encounter - Tolu Amanda - 10/06/2018 11:02 AM CST Reason for Communication: Patient needs to be seen in [place]. Phyllis doesn't do Mohs surgeries. Current Phone Number: Can Nursing/Provider leave a detailed message: na Did the patient refuse triage through Nurse line? (for symptom based concerns)na Action Needed: 10/06/18 Please have Ewa gonzales new order for COEUR D ALENE; Derm Surgery Consult: [facility] nose needs Mohs [facility] by Ewa Hinton 09/21/2018 (Approximate) Name of Medication (if relevant): NTORY COORDINATOR documented in this encounter Plan of Treatment Not on filedocumented as of this encounter Visit Diagnoses Not on filedocumented in this encounter Additional Health Concerns Assessment Noted Time PHQ-9 Depression Total Score: 18 04/28/2018 11:27 AM C DT documented as of this encounter Care Teams Fruit Or Nut Grower Relationship Specialty Start Date End Date Ewa Alejandro M.D. PCP - General 03/13/17 01/09/[address] [address] documented as of this encounter
--- OUTSIDE RECORDS SUMMARY | 2022-05-28 06:52 | XMS_ITS | Encounter Summary ---
:1945 Author Organization [facility] Address [address] [place] [address] Care Team Providers Name Role Phone Ewa Alejandro M.D. Primary Care Provider [phone] Reason for Visit Reason Comments Pancreas Medication Question Encounter Details Date Type Department Care Team Description 01/12/2019 Clinical Division of Parminder Pancreas; Communication Gastroenterology in [place], [place] Pato Question [address] [facility] [address] [place] [address] [place] [address] Social History Tobacco Use Types Packs/Day Years [...] as of this encounter Care Teams Lead Presser Relationship Specialty Start Date End Date Ewa Alejandro M.D. PCP - General 03/13/17 01/09/20 [address] [place] [address] documented as of this encounter
--- OUTSIDE RECORDS SUMMARY | 2022-05-28 06:52 | XMS_ITS | Encounter Summary ---
:1945 Author Organization [facility] Address [address] [place] [address] Care Team Providers Name Role Phone Ewa Alejandro M.D. Primary Care Provider [phone] Reason for Referral Outpatient (Routine) - Closed Specialty Diagnoses / Procedures Referred By Contact Madelaine castillo To Contact Nephrology and Rob Cantu [place] [facility] [place] 200 [place] [address] Referral ID Status Reason Start Date Expiration Date Visits Requ ested Visits Authorized [id number] Closed 01/26/2019 01/26/2020 1 1 Reason for Visit Outpatient (Routine) - Closed Specialty Diagnoses / Procedures Referred By Contact Madelaine castillo To Contact Nephrology and Rob Cantu [place] [facility] Hypertension [place] [address] [place] [address] Referral ID Status Reason Start Date Expiration Date Visits Requ ested Visits Authorized [id number] Closed 12/24/2018 12/24/2019 1 1 Encounter Details Date Type Department Care Team Description 01/26/2019 Office Visit Division of Nephrology Rob Cantu Hyp ertension Essential Primary (Primary Dx); and Hypertension in Pato Barber Sleep Apnea [place], [place] [address] [facility] [address] [place] [address] [phone] Social History Tobacco Use Types Packs/Day Years [...] Body Mass Index 30.83 11/09/2018 8:55 AM HEAVY MOBILE EQUIPMENT OPERATOR documented in this encounter Progress Notes Rob [...] Organization Address City/State/ZIP Code Phon e Number [facility] documented in this encounter Visit Diagnoses Diagnosis Hypertension Essential Primary - Primary Sleep Apnea documented in this encounter Additional Health Concerns Assessment Noted Time PHQ-9 Depression Total Score: 18 04/28/2018 11:27 AM C DT documented as of this encounter Care Teams Engineering Agent Relationship Specialty Start Date End Date Ewa Alejandro M.D. PCP - General 03/13/17 01/09/20 [address] [place] [address] documented as of this encounter
--- OUTSIDE RECORDS SUMMARY | 2022-05-28 06:52 | XMS_ITS | Encounter Summary ---
:1945 Author Organization [facility] Address [address] [place] [address] Care Team Providers Name Role Phone Ewa Alejandro M.D. Primary Care Provider Encounter Details Date Type Department Care Team Description 11/09/2018 Hospital Encounter Department of Lea rice Heart Laboratory Medicine Ewa brunson Diseas e Without Heart in [place] Failure [place] [address] [place] [phone] Social History Tobacco Use Types Packs/Day [...] do you attend faith or Never 2021 tenriism services? Do you [...] by 0 80 mg tablet mouth daily. clopidogreL (PLAVIX) 75 mg Take 1 tablet by 0 09/2015 tablet mouth daily. escitalopram (LEXAPRO) 10 Take 1 tablet (10 30 tablet 11 mg tablet mg total) by mouth daily. blood sugar diagnostic Reports checking 0 strips 4-5 times daily. PEN NEEDLE, DIABETIC MISC Yani Fine 30 0 disposable needles. For use with Insulin Pens, 4 times daily SYRINGE-NEEDLE,INSULIN,0.5 0 ML (INSULIN SYRINGE MISC) insulin aspart U-100 Inject 20-25 Units 0 05/06/2020 (NovoLOG FlexPen) 100 under the skin as unit/mL injection needed. With meals insulin glargine (LANTUS) Inject 20 Units 0 01/3105/06/2020 100 unit/mL injection under the skin at bedtime. losartan (for_COZAAR) 100 Take 50 mg by 0 10/13/ 014 05/06/2020 mg tablet mouth daily. albuterol (for_ACCUNEB) Take 2.5 mg by [...] 05/01/2020 reader (FREESTYLE ILEANA 14 DAY READER) misc flash glucose sensor Use as directed. 6 [...] KwikPen) 100 unit/mL for: Diabetes (70-30) injection sbxxyp-abihkxai-nlchakl Take 2 capsules by 120 capsule 0 [...] for up to 15 days. metFORMIN (GLUMETZA) 1,000 Take 1 tablet 180 [...] Res ults for this PANEL, S AM LATHE SET UP OPERATOR Disease Without Heart proced ure are in Failure the results section. CBC WITH Routine 11/09/2018 10:11 Hypertensive Heart Resul ts for this DIFFERENTIAL, B AM LATHE SET UP OPERATOR Disease Without Heart pro cedure are in Failure the results section. documented in this encounter Results (ABNORMAL) Renal Function Panel (11/09/2018 10:11 AM LATHE SET UP OPERATOR) P athologist Signature Potassium, S 4.3 3.6 - 5.2 11/09/2018 [facility] mmol/L 1:[address] [facility] Sodium, S 143 135 - 145 11/09/2018 [facility] mmol/L 1:[address] [facility] Chloride, S 106 98 - 107 11/09/2018 [facility] mmol/L 1:[address] [facility] Bicarbonate, S 24 22 - 29 11/09/2018 [facility] mmol/L 1:[address] [facility] Anion Gap 13 7 - 15 11/09/2018 [facility] 1:[address] [facility] BUN (Blood Urea 28 (H) 8 - 24 11/09/2018 [facility] Nitrogen), S mg/dL 1:[address] [facility] Creatinine 1.13 0.74 - 11/09/2018 [facility] 1.35 mg/dL 1:[address] [facility] eGFR-Non 63 >=60 11/09/2018 [facility] Black/ mL/min/BSA 1:[address] [facility] Comment: ----ADDITIONAL INFORMATION---- Estimated GFR calculated using the 2009 CKD_EPI creatinine equation. eGFR-Black/ 73 >=60 mL/min/BSA 2018 1:44 PM [facility] Comment: ----ADDITIONAL INFORMATION---- Estimated GFR calculated using the 2009 CKD_EPI creatinine equation. Calcium, Total, S 9.7 8.8 - 10.2 11/09/2018 1:[address] [facility] mg/dL [facility] Glucose, S 176 (H) 70 - 140 mg/dL 11/09/2018 1:44 PM [facility] [place] [facility] Albumin, S 4.4 3.5 - 5.0 g/dL 11/09/2018 1:44 PM [facility] Phosphorus 3.9 2.5 - 4.5 mg/dL 11/09/2018 3:[address] [facility] (Inorganic), S [facility] Specimen Anatomical Collection Method Collection Time Receive d Time (Source) Location / / Volume Laterality Blood (Blood, 11/09/2018 10:11 11/09/2018 Venous) AM LATHE SET UP OPERATOR 12:58 PM LATHE SET UP OPERATOR Narrative [facility] - 11/09/2018 3:52 PM LATHE SET UP OPERATOR Specimen Information: Specimen ID: [id number] Specimen Type: Blood Specimen Collection Start Date: 11/09/19 19 10:11 AM Specimen Received Date: 11/09/2018 12:58 PM Specimen ID: [id number] Specimen Type: Blood Specimen Collection Start Date: 11/09/19 10:11 AM Specimen Received Date: 11/09/2018 ??3:3 7 PM Ewa Alejandro M.D. LAB BLOOD ADD-ON Performing Organization Address City/State/ZIP Code Phon e Number [facility]- [address] [place] [address] [facility] [address] [place] [address], U [facility] (ABNORMAL) CBC with Differential (11/09/2018 10:11 AM LATHE SET UP OPERATOR) [facility] Method Time Signature Hemoglobin 12.8 (L) 13.2 - 11/09/2018 [facility] 16.6 g/dL 10:17 AM [facility] Hematocrit 37.4 (L) 38.3 - 11/09/2018 [facility] 48.6 % 10:17 AM [facility] Erythrocytes 4.28 (L) 4.35 - 11/09/2018 [facility] 5.65 10:17 AM LATHE SET UP OPERATOR HEALTH x10(12)/L [facility]- [facility] MCV 87.4 78.2 - 11/09/2018 [facility] 97.9 fL 10:17 AM LATHE SET UP OPERATOR [facility] RBC Distrib Width 13.6 11.8 - 11/09/2018 [facility] 14.5 % 10:17 AM [facility] Platelet Count 204 135 - 317 11/09/2018 [facility] x10(9)/L 10:[address] [facility] Leukocytes 6.2 3.4 - 9.6 11/09/2018 [facility] x10(9)/L 10:[address] [facility] Neutrophils 3.56 1.56 - 11/09/2018 [facility] 6.45 10:17 AM LATHE SET UP OPERATOR HEALTH x10(9)/L [facility]- [facility] Lymphocytes 1.47 0.95 - 11/09/2018 [facility] 3.07 10:17 AM LATHE SET UP OPERATOR HEALTH x10(9)/L [facility]- [facility] Monocytes 0.38 0.26 - 11/09/2018 [facility] 0.81 10:17 AM LATHE SET UP OPERATOR HEALTH x10(9)/L [facility]- [facility] Eosinophils 0.71 (H) 0.03 - 11/09/2018 [facility] 0.48 10:17 AM LATHE SET UP OPERATOR HEALTH x10(9)/L SYSTEM- [facility] Basophils 0.08 0.01 - 11/09/2018 [facility] 0.08 10:17 AM LATHE SET UP OPERATOR HEALTH x10(9)/L SYSTEM- [facility] Specimen Anatomical Collection Method Collection Time Receive d Time (Source) Location / / Volume Laterality Blood (Blood, 11/09/2018 10:11 11/09/2018 Venous) AM LATHE SET UP OPERATOR 10:11 AM LATHE SET UP OPERATOR Ewa Alejandro M.D. LAB BLOOD ADD-ON Performing Organization Address City/State/ZIP Code Phon e Number [facility] [address] [place] [address] LAB documented in this encounter Visit Diagnoses Diagnosis Hypertensive Heart Disease Without Heart Failure documented in this encounter Additional Health Concerns Assessment Noted Time PHQ-9 Depression Total Score: 18 04/28/2018 11:27 AM C DT documented as of this encounter Care Teams Wafer Cutter Relationship Specialty Start Date End Date Ewa Alejandro M.D. PCP - General 03/13/17 01/09/20 [address] [place] [phone] documented as of this encounter
--- OUTSIDE RECORDS SUMMARY | 2022-05-28 06:52 | XMS_ITS | Encounter Summary ---
:1945 Author Organization [facility] Address [address] [place] [address] Care Team Providers Name Role Phone Ewa Alejandro M.D. 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 [address] [place] [address] Referral ID Status Reason Start Date Expiration Date Visits V isits Requested Authorized [id number] Closed Specialty 11/16/2018 11/16/2019 1 1 Services Required L BUSINESS DIRECTOR Encounter Details Date Type Department Care Team Description 11/16/2018 Orders Only Department of [facility] And Medicine, Ewa Barclay, Chronic Kidney Disease Clinic, in [place] Without Heart Failure [place] [address] And With Stage 2 (Mild) [address] [place], [place] Chronic Kidney Disease KOBI BRYSON [address] (Primary Dx) [address] Social History Tobacco Use [...] do you attend faith or Never 2021 restoration services? Do you [...] documented as of this encounter Care Teams Wireless Telegrapher Relationship Specialty Start Date End Date Ewa Alejandro M.D. PCP - General 03/13/17 01/09/[address] [phone] documented as of this encounter
--- OUTSIDE RECORDS SUMMARY | 2022-05-28 06:52 | XMS_ITS | Encounter Summary ---
:1945 Author Organization [facility] Address [address] [place] [address] Care Team Providers Name Role Phone Ewa Alejandro M.D. Primary Care Provider [phone] Reason for Visit Reason Onset Date Comments scheduling AWV 10/07/2018 Encounter Details Date Type Department Care Team Description 10/07/2018 Clinical Communication Department of nAjana Glasgow scheduling AWV [facility] Noam Santos [facility], in [place] [address] [place] [address] Social History Tobacco Use Types [...] you attend oriental orthodox or Never 2021 mormon services? Do you [...] is coming in tomorrow am to discuss. ST AND REPERTOIRE MANAGER documented in this encounter Plan of Treatment Not on filedocumented as of this encounter Visit Diagnoses Not on filedocumented in this encounter Additional Health Concerns Assessment Noted Time PHQ-9 Depression Total Score: 18 04/28/2018 11:27 AM C DT documented as of this encounter Care Teams Venture Capitalist Relationship Specialty Start Date End Date Ewa Alejandro M.D. PCP - General 03/13/17 01/09/[address] [phone] documented as of this encounter
--- OUTSIDE RECORDS SUMMARY | 2022-05-28 06:53 | XMS_ITS | Encounter Summary ---
:1945 Author Organization [facility] Address [address] [place] [address] Care Team Providers Name Role Phone Ewa Alejandro M.D. Primary Care Provider [phone] Encounter Details Date Type Department Care Team Description 07/10/2018 Hospital Encounter Department of Laboratory Emil Zurita, [facility], [facility], in [place], [address] [place] [address] [address] [facility] [address] [place] [address] [phone] Social History Tobacco Use Types Packs/Day Years [...] do you attend congregation or Never 2021 uatsdin services? Do you [...] by mouth 0 80 mg tablet daily. clopidogreL (PLAVIX) 75 mg Take 1 [...] SYRINGE-NEEDLE,INSULIN,0.5 0 ML (INSULIN SYRINGE MISC) insulin glargine (LANTUS) Inject 20 Units 0 01/3105/06/2020 100 unit/mL injection under the skin at bedtime. losartan (for_COZAAR) 100 Take 50 mg by mouth 0 0 10/13/2013 05/06/2020 mg tablet daily. albuterol (for_ACCUNEB) Take 2.5 [...] (three) times a day before meals. insulin NPH and regular LW Addl 0 [...] documented as of this encounter Care Teams Dedicated Driver Relationship Specialty Start Date End Date Ewa Alejandro M.D. PCP - General 03/13/17 01/09/[address] [place] [address] documented as of this encounter
--- OUTSIDE RECORDS SUMMARY | 2022-05-28 06:53 | XMS_ITS | Encounter Summary ---
:1945 Author Organization [facility] Address [address] [place] [address] Care Team Providers Name Role Phone Ewa Alejandro M.D. Primary Care Provider [phone] Reason for Referral Outpatient (Routine) - Closed Specialty Diagnoses / Procedures Referred By Contact Refer red To Contact Endocrinology Diagnoses Pancreatitis Chronic (HCC) Emil Zurita M.D. [facility] [address] [place] [address] Referral ID Status Reason Start Date Expiration Date Visits Requ ested Visits Authorized [id number] Closed 08/19/2018 08/19/2019 1 1 MACHINE OPERATOR Reason for Visit Outpatient (Routine) - Closed Specialty Diagnoses / Referred By Referred To Cont act Procedures Contact Gastroenterology and Diagnoses Diarrhea Dilation Pancreatic Duct Stone Pancreatic Duct Pancreatitis Chronic (HCC) [facility] [place] [address] [place] [address] Referral ID Status Reason Start Date Expiration Date Visits Requ ested Visits Authorized [id number] Closed 07/10/2018 07/10/2019 1 1 Encounter Details Date Type Department Care Team Description 08/19/2018 Office Visit Division of Parminder, Pancreatitis Ch ronic (HCC) (Primary Dx); Gastroenterology in [place] Diarrhea; [place], [place] [address] [facility] Dilation Pancreatic Duct (HCC); [address] [place], [place] Stone Pancreatic Duct (HCC) [place] [address] [phone] Social History Tobacco Use Types Packs/Day Years [...] do you attend scientology or Never 2021 yazdanism services? Do you [...] and was in agreement. Multiple questions answered. MACHINE OPERATOR documented in this encounter Plan of Treatment Scheduled Referrals Name Type Priority Associated Diagnoses Order S [facility] Endocrinology - Outpatient Routine Pancreatitis Chronic Expe [...] documented as of this encounter Care Teams City Alderman Relationship Specialty Start Date End Date Ewa Alejandro M.D. PCP - General 03/13/17 01/09/[address] [address] documented as of this encounter
--- OUTSIDE RECORDS SUMMARY | 2022-05-28 06:53 | XMS_ITS | Encounter Summary ---
:1945 Author Organization [facility] Address [address] [place] [address] Care Team Providers Name Role Phone Ewa Alejandro M.D. Primary Care Provider [phone] Encounter Details Date Type Department Care Team Description 08/21/2018 Documentation Division of Gastroenterology Ran Vilchis in [facility] cameron [address] [place] [address] Social History Tobacco Use Types Packs/Day Years [...] do you attend gnosticism or Never 2021 mosque services? Do you [...] as of this encounter Care Teams Roll Forming Supervisor Relationship Specialty Start Date End Date Ewa Alejandro M.D. PCP - General 03/13/17 01/09/20 [address] [place] [address] documented as of this encounter
--- OUTSIDE RECORDS SUMMARY | 2022-05-28 06:53 | XMS_ITS | Encounter Summary ---
:1945 Author Organization [facility] Address [address] [place] [address] Care Team Providers Name Role Phone Ewa Alejandro M.D. Primary Care Provider [phone] Encounter Details Date Type Department Care Team Description 07/02/2018 Hospital Encounter Department of Jamaal Zurita ; Laboratory Medicine Rhoda Stein Pancreatitis Chronic (HCC) in [place], [address] [place] [address] [address] [place], [place] [phone] [address] (Work) [phone] Social History Tobacco Use Types Packs/Day Years [...] Panel, PCR, Feces (07/10/2018 6:00 AM CDT) [facility] Method Time Signature Specimen Source STOOL 07/10/2018 [facility] 8:38 PM CDT [facility] Campylobacter Negative Negative 07/10/2018 [facility] species 8:38 PM CDT [facility] C. difficile toxin Negative Negative 07/10/2018 [facility] 8:38 PM CDT [facility] Plesiomonas Negative Negative 07/10/2018 [facility] shigelloides 8:38 PM CDT [facility] Salmonella species Negative Negative 07/10/2018 [facility] 8:38 PM CDT [facility] Vibrio species Negative Negative 07/10/2018 [facility] 8:38 PM CDT [facility] Vibrio cholerae Negative Negative 07/10/2018 [facility] 8:38 PM CDT [facility] Yersinia species Negative Negative 07/10/2018 [facility] 8:38 PM CDT [facility] Enteroaggregative E. Negative Negative 07/10/2018 [facility] coli (EAEC) 8:38 PM CDT [facility] Enteropathogenic E. Negative Negative 07/10/2018 [facility] coli (EPEC) 8:38 PM CDT [facility] Enterotoxigenic E. Negative Negative 07/10/2018 [facility] coli (ETEC) 8:38 PM CDT [facility] Shiga toxin Negative Negative 07/10/2018 [facility] producing E. coli 8:38 PM CDT [facility] Shigella/Enteroinvas Negative Negative 07/10/2018 [facility] akil E. coli 8:38 PM CDT [facility] Cryptosporidium Negative Negative 07/10/2018 [facility] species 8:38 PM CDT [facility] Cyclospora Negative Negative 07/10/2018 [facility] cayetanensis 8:38 PM CDT [facility] Entamoeba Negative Negative 07/10/2018 [facility] histolytica 8:38 PM CDT [facility] Giardia Negative Negative 07/10/2018 [facility] 8:38 PM CDT [facility] Adenovirus F40/41 Negative Negative 07/10/2018 [facility] 8:38 PM CDT [facility] Astrovirus Negative Negative 07/10/2018 [facility] 8:38 PM CDT [facility] Norovirus GI/GII Negative Negative 07/10/2018 [facility] 8:38 PM CDT [facility] Rotavirus Ag, F Negative Negative 07/10/2018 [facility] 8:38 PM CDT [facility] Sapovirus Negative Negative 07/10/2018 [facility] 8:38 PM CDT [facility] Comment: ----ADDITIONAL INFORMATION---- This assay is performed using the FDA-cl eared FilmArray GI Panel ([employer] Specimen Anatomical Collection Method Collection Time Receive d Time (Source) Location / / Volume Laterality Stool (Stool) 07/10/2018 6:00 AM 07/10/20 18 8:14 CDT PM CDT Emil Zurita M.D. LAB MICROBIOLOGY - GENERAL O RDERABLES Performing Organization Address City/State/[facility] Phon e Number [facility] [address] [place] [address] LAB documented in this encounter Visit Diagnoses Diagnosis Diarrhea Pancreatitis Chronic (HCC) documented in this encounter Additional Health Concerns Assessment Noted Time PHQ-9 Depression Total Score: 18 04/28/2018 11:27 AM C DT documented as of this encounter Care Teams Cementer Relationship Specialty Start Date End Date Ewa Alejandro M.D. PCP - General 03/13/17 01/09/[address] [address] documented as of this encounter
--- OUTSIDE RECORDS SUMMARY | 2022-05-28 06:53 | XMS_ITS | Encounter Summary ---
:1945 Author Organization [facility] Address [address] [place] [address] Care Team Providers Name Role Phone Ewa Alejandro M.D. Primary Care Provider [phone] Encounter Details Date Type Department Care Team Description 07/10/2018 Orders Only Division of Gastroenterology in [place], [place] [address] [facility] [address] [place] [address] [place], [place] [phone] (Wo rk) Social History Tobacco Use Types [...] documented as of this encounter Care Teams Licsw Relationship Specialty Start Date End Date Ewa Alejandro M.D. PCP - General 03/13/17 01/09/20 [address], [place] [address] documented as of this encounter
--- OUTSIDE RECORDS SUMMARY | 2022-05-28 06:53 | XMS_ITS | Encounter Summary ---
:1945 Author Organization [facility] Address [address] [place] [address] Care Team Providers Name Role Phone Ewa Alejandro M.D. Primary Care Provider [phone] Encounter Details Date Type Department Care Team Description 08/27/2018 Orders Only Division of Anjelica Bell, Diabetes Maria Ines litus Type Endocrinology in CUSTODIAL MAINTENANCE WORKER, C.N.P., 2 Hypergly cemia ([facility]) [facility] (Primary Dx) [address] [facility] [address] [place] [address] [place], [place] [phone] Social History Tobacco Use Types Packs/Day Years [...] do you attend methodist or Never 2021 moravian services? Do you [...] as of this encounter Care Teams Product Development Ecologist Relationship Specialty Start Date End Date Ewa Alejandro M.D. PCP - General 03/13/17 01/09/20 [address] [place] [address] documented as of this encounter
--- OUTSIDE RECORDS SUMMARY | 2022-05-28 06:53 | XMS_ITS | Encounter Summary ---
:1945 Author Organization [facility] Address [address] [place] [address] Care Team Providers Name Role Phone Ewa Alejandro M.D. Primary Care Provider [phone] Reason for Referral Outpatient (Routine) - Closed Specialty Diagnoses / Referred By Referred To Cont act Procedures Contact Gastroenterology and Emil Zurita [facility] Hepatology [place] [address] [place] [address] Referral ID Status Reason Start Date Expiration Date Visits Requ ested Visits Authorized [id number] Closed 07/27/2018 07/27/2019 1 1 Scheduling Instructions Return after testing. Comprehensive denzel ent Outpatient (Routine) - Closed Specialty Diagnoses / Procedures Referred By Contact Refer red To Contact Diagnoses Diarrhea Persistent Unexplained Emil Zurita M.D. [facility] Procedures Colonoscopy [address] [place] [address] Referral ID Status Reason Start Date Expiration Date Visits Requ ested Visits Authorized [id number] Closed 07/27/2018 07/27/2019 1 1 Outpatient (Routine) - Closed Specialty Diagnoses / Procedures Referred By Contact Refer red To Contact Diagnoses Diarrhea Persistent Unexplained Emil Zurita M.D. [facility] Procedures EUS [address] [place] [address] Referral ID Status Reason Start Date Expiration Date Visits Requ ested Visits Authorized [id number] Closed 07/27/2018 07/27/2019 1 1 Outpatient (Routine) - Closed Specialty Diagnoses / Procedures Referred By Contact Refer red To Contact Diagnoses Diarrhea Persistent Unexplained Emil Zurita M.D. [facility] Procedures EGD [address] [place] [address] Referral ID Status Reason Start Date Expiration Date Visits Requ ested Visits Authorized [id number] Closed 07/27/2018 07/27/2019 1 1 Reason for Visit Reason Comments Pancreas Results Outside CT reviewed, recomen dations Encounter Details Date Type Department Care Team Description 07/27/2018 Clinical Division of Tomasa Alex Pancreas; Michael alegre Communication Gastroenterology in R, R.N. (Outside CT [place], [place] [address] reviewed, [address] [facility] recomendations ) [facility], [address] [place] [phone] [address] Social History Tobacco Use Types Packs/Day Years [...] do you attend jew or Never 2021 amish services? Do you [...] documented as of this encounter Care Teams Instructor Dancing Relationship Specialty Start Date End Date Ewa Alejandro M.D. PCP - General 03/13/17 01/09/20 [address] [place] [address] documented as of this encounter
--- OUTSIDE RECORDS SUMMARY | 2022-05-28 06:53 | XMS_ITS | Encounter Summary ---
:1945 Author Organization [facility] Address [address] [place] [address] Care Team Providers Name Role Phone Ewa Alejandro M.D. Primary Care Provider [phone] Reason for Referral MRI/CAT/PET Scan (Routine) - Closed Specialty Diagnoses / Procedures Referred By Contact Refer red To Contact Radiology Diagnoses Diarrhea Dilation Pancreatic Duct Stone Pancreatic Duct Pancreatitis Chronic (HCC) Emil Zurita M.D. [facility] Procedures CT Abdomen Pelvis with IV Contrast CT Abdomen Pelvis without and with IV Contrast NV CT ABD&PELVIS WO/W CNTRST HC CT ABD&PELVIS WO/W CNTRST NV CT ABD&PELVIS WO/W CNTRST NV CT ABD&PELVIS W CNTRST HC CT ABD&PELVIS W CNTRST [address] [facility] NV CT ABD&[place] [address] Referral ID Status Reason Start Date Expiration Date Visits Requ ested Visits Authorized [id number] Closed 07/10/2018 07/10/2019 1 1 Outpatient (Routine) - Closed Specialty Diagnoses / Referred By Referred To Cont act Procedures Contact Gastroenterology and Diagnoses Diarrhea Dilation Pancreatic Duct Stone Pancreatic Duct Pancreatitis Chronic (HCC) Emil Zurita [facility] Hepatology [place] [address] [place] [address] Referral ID Status Reason Start Date Expiration Date Visits Requ ested Visits Authorized [id number] Closed 07/10/2018 07/10/2019 1 1 Scheduling Instructions Return after CT scan, and 48 hour stool test Reason for Visit Reason Comments Stool test diarrhea Pancreas Encounter Details Date Type Department Care Team Description 07/10/2018 Clinical Division of Parminder, Stool test Communication Gastroenterology in [facility], (diarrh ea); [place], [place] Pancreas [address] [place] [address] [place] [address] Social History Tobacco Use Types Packs/Day Years [...] do you attend anglican or Never 2021 hindu services? Do you [...] would like to pickup the container in [place]. Disposition/Recommendation: self-care appropriate at this time 07/10/2018. [...] Creatinine with Estimated GFR (08/19/2018 1:16 PM ABRASIVE MIXER HELPER) Analysis Performed At Patho logist Time Signature Creatinine 1.04 0.74 - 08/19/2018 [facility] 1.35 mg/dL 2:27 PM ABRASIVE MIXER HELPER [facility] eGFR-Non 70 >=60 08/19/2018 [facility] Black/ mL/min/BSA 2:27 PM ABRASIVE MIXER HELPER LABORATORIES - [facility] Comment: ----ADDITIONAL INFORMATION---- Estimated GFR calculated using the 2009 CKD_EPI creatinine equation. eGFR-Black/ 81 >=60 mL/min/BSA 08/19/2018 2:27 [facility] Czech ABRASIVE MIXER HELPER [facility] [place] Comment: ----ADDITIONAL INFORMATION---- Estimated GFR calculated using the 2009 CKD_EPI creatinine equation. Specimen Anatomical Collection Method Collection Time Receive d Time (Source) Location / / Volume Laterality Blood (Blood, 08/19/2018 1:16 PM 08/19/20 18 1:43 Venous) ABRASIVE MIXER HELPER PM ABRASIVE MIXER HELPER Emil Zurita M.D. LAB BLOOD ADD-ON Performing Organization Address City/State/ZIP Code Phon e Number [facility] LABORATORIES - [address] [place] [address] [address] [facility] CT Abdomen Pelvis with IV Contrast (08/19/2018 12:43 PM ABRASIVE MIXER HELPER) Anatomical Region Laterality Modality Abdomen, Pelvis, Abdominal RST LOS, Abdominal ARZ LOS, N/A Computed Tomography Abdominal FLA LOS Specimen (Source) Anatomical Collection Method Collection Time Re ceived Time Location / / Volume Laterality 08/19/2018 1:29 PM ABRASIVE MIXER HELPER Impressions 08/19/2018 1:48 PM ABRASIVE MIXER HELPER IMPRESSION: ?? 1. Chronic calcific pancreatitis. Narrative 08/19/2018 1:48 PM ABRASIVE MIXER HELPER EXAM: ??CT ABDOMEN PELVIS WITH IV CONTRAST [...] in course and calibe r. There is lanp-ee-vqvycmjo arthrosclerotic calcification of the aor ta and [...] in course and calibe r. There is dmge-vt-eosjtinp arthrosclerotic calcification of the aor ta and [...] Bile Acids, % 0.0 <=3.7 % 07/16/2018 [facility] CDCA + CA total 12:16 PM CDT [facility] [place] Total Bile 138 <=2619 07/16/2018 [facility] Acids mcmol/48h 12:16 PM CDT [facility]ATOR[facility] - [facility] [place] Comment: ----ADDITIONAL INFORMATION---- This test was developed and its performa nce characteristics determined by [facility] in a manner consistent with CLIA requirements. [...] Organization Address City/State/ZIP Code Phon e Number [facility] LABORATORIES - [address] [place], [place] [address] [facility] documented in this encounter Visit Diagnoses Diagnosis Diarrhea - Primary Dilation Pancreatic Duct Stone Pancreatic Duct Pancreatitis Chronic (HCC) Diarrhea Dilation Pancreatic Duct Stone Pancreatic Duct Pancreatitis Chronic (HCC) documented in this encounter Additional Health Concerns Assessment Noted Time PHQ-9 Depression Total Score: 18 04/28/2018 11:27 AM C DT documented as of this encounter Care Teams Desulfurizer Hand Relationship Specialty Start Date End Date Ewa Alejandro M.D. PCP - General 03/13/17 01/09/[address] [address] documented as of this encounter
--- OUTSIDE RECORDS SUMMARY | 2022-05-28 06:53 | XMS_ITS | Encounter Summary ---
:1945 Author Organization [facility] Address [address] [place] [address] Care Team Providers Name Role Phone Ewa Alejandro M.D. Primary Care Provider [phone] Encounter Details Date Type Department Care Team Description 07/02/2018 Ancillary Procedure Department of Kamala Zurita Personal Radiology in [place] Stein History [place], [place] [address] [facility] [address] [place] [address] Social History Tobacco Use Types Packs/Day Years [...] do you attend cheondoism or Never 2021 scientologist services? Do you [...] documented as of this encounter Care Teams Licensing Manager Relationship Specialty Start Date End Date Ewa Alejandro M.D. PCP - General 03/13/17 01/09/[address] [address] documented as of this encounter
--- OUTSIDE RECORDS SUMMARY | 2022-05-28 06:53 | XMS_ITS | Encounter Summary ---
:1945 Author Organization [facility] Address [address] [place] [address] Care Team Providers Name Role Phone Ewa Alejandro M.D. Primary Care Provider [phone] Reason for Visit Reason Onset Date Comments Colonoscopy 07/01/2018 Encounter Details Date Type Department Care Team Description 07/01/2018 Clinical Communication Division of Jhonny Zuritaopy Gastroenterology in Rhoda Stein [place], [place] [address] [facility] [address] [place] [address] [phone] Social History Tobacco Use Types Packs/Day Years [...] do you attend hoahaoism or Never 2021 moravian services? Do you [...] documented as of this encounter Care Teams Mural Painter Relationship Specialty Start Date End Date Ewa Alejandro M.D. PCP - General 03/13/17 01/09/[address] [place] [address] documented as of this encounter
--- OUTSIDE RECORDS SUMMARY | 2022-05-28 06:53 | XMS_ITS | Encounter Summary ---
:1945 Author Organization [facility] Address [address] [place] [address] Care Team Providers Name Role Phone Ewa Alejandro M.D. Primary Care Provider [phone] Encounter Details Date Type Department Care Team Description 08/10/2018 Orders Only Division of Gastroenterology in [place], [place] [address] [facility] [address] [place] [address] [place], [place] [phone] (Wo rk) Social History Tobacco Use Types [...] do you attend sikh or Never 2021 jewish services? Do you [...] documented as of this encounter Care Teams Paint Stockman Relationship Specialty Start Date End Date Ewa Alejandro M.D. PCP - General 03/13/17 01/09/20 [address], [place] [address] documented as of this encounter
--- OUTSIDE RECORDS SUMMARY | 2022-05-28 06:53 | XMS_ITS | Encounter Summary ---
:1945 Author Organization [facility] Address [address] [place] [address] Care Team Providers Name Role Phone Ewa Alejandro M.D. Primary Care Provider [phone] Encounter Details Date Type Department Care Team Description 08/19/2018 Hospital Encounter Department of Parminder, Diarrhea ; Laboratory Medicine [place] Dilation Pancreatic Duct (HCC); and Pathology, [address] [place] [address] Stone Pancreatic Duct (HCC); [facility], in [place], [place] Pancrea titis Chronic (HCC) [place], [place] [address] [place] [address] [place], [place] (Work) [phone] Social History Tobacco Use Types Packs/Day Years [...] do you attend mormon or Never 2021 rastafarian services? Do you [...] PM Diarrhea Results for this EGFR, S/P BLEACH RANGE OPERATOR Dilation Pancreatic procedur e are in Duct (HCC) the results Stone Pancreatic section. Duct (HCC) Pancreatitis Chronic (HCC) documented in this encounter Results Creatinine with Estimated GFR (08/19/2018 1:16 PM BLEACH RANGE OPERATOR) Analysis Performed At Patho logist Time Signature Creatinine 1.04 0.74 - 08/19/2018 [facility] 1.35 mg/dL 2:27 PM BLEACH RANGE OPERATOR LABORATORIES - [facility] eGFR-Non 70 >=60 08/19/2018 [facility] Black/ mL/min/BSA 2:27 PM BLEACH RANGE OPERATOR LABORATORIES - [facility] Comment: ----ADDITIONAL INFORMATION---- Estimated GFR calculated using the 2009 CKD_EPI creatinine equation. eGFR-Black/ 81 >=60 mL/min/BSA 08/19/2018 2:27 [facility] Italian PM BLEACH RANGE OPERATOR LABORATORIES - [facility] Comment: ----ADDITIONAL INFORMATION---- Estimated GFR calculated using the 2009 CKD_EPI creatinine equation. Specimen Anatomical Collection Method Collection Time Receive d Time (Source) Location / / Volume Laterality Blood (Blood, 08/19/2018 1:16 PM 08/19/20 18 1:43 Venous) BLEACH RANGE OPERATOR PM BLEACH RANGE OPERATOR Emil Zurita M.D. LAB BLOOD ADD-ON Performing Organization Address City/State/ZIP Code Phon e Number [facility]ATORIES - [address] documented in this encounter Visit Diagnoses Diagnosis Diarrhea Dilation Pancreatic Duct Stone Pancreatic Duct Pancreatitis Chronic (HCC) documented in this encounter Additional Health Concerns Assessment Noted Time PHQ-9 Depression Total Score: 18 04/28/2018 11:27 AM C DT documented as of this encounter Care Teams Director Of Psychology Relationship Specialty Start Date End Date Ewa Alejandro M.D. PCP - General 03/13/17 01/09/[address] [address] documented as of this encounter
--- OUTSIDE RECORDS SUMMARY | 2022-05-28 06:53 | XMS_ITS | Encounter Summary ---
:1945 Author Organization [facility] Address [address] [place] [address] Care Team Providers Name Role Phone Ewa Alejandro M.D. Primary Care Provider [phone] Encounter Details Date Type Department Care Team Description 07/17/2018 Hospital Encounter Department of Jamaal Zurita ; Laboratory Medicine [place] Stein Dilation Pancreatic Duct (HCC); in [place], [address] [place] [address] Stone Pancreatic Duct (HCC); [place], [place] Pancreatitis Chronic (HCC) [address] [address] [place], [place] [phone] [address] (Work) [phone] Social History Tobacco Use Types Packs/Day Years [...] do you attend christianity or Never 2021 voodoo services? Do you [...] documented as of this encounter Care Teams Tanner Rotary Drum Continuous Process Relationship Specialty Start Date End Date Ewa Alejandro M.D. PCP - General 03/13/17 01/09/20 [address], [place] [address] documented as of this encounter
--- OUTSIDE RECORDS SUMMARY | 2022-05-28 06:53 | XMS_ITS | Encounter Summary ---
:1945 Author Organization [facility] Address [address] [place] [address] Care Team Providers Name Role Phone Ewa Alejandro M.D. Primary Care Provider Encounter Details Date Type Department Care Team Description 07/14/2018 Hospital Encounter Department of Jamaal Zurita ; Laboratory Medicine [place] Stein Dilation Pancreatic Duct (HCC); in [place], [address] [place] [address] Stone Pancreatic Duct (HCC); [place], [place] Pancreatitis Chronic (HCC) [address] [address] [place], [place] [phone] [address] (Work) [phone] Social History Tobacco Use Types Packs/Day Years [...] Time Signature Total Weight 280 g 07/18/2018 [facility] 11:07 AM CDT [facility] Duration 48 h 07/18/2018 [facility] 11:07 AM CDT [facility] Total Fat/24 10 (H) 2 - 7 g/24 07/18/2018 [facility] Hr h 12:23 PM CDT [facility] Comment: ----ADDITIONAL INFORMATION---- This test was developed and its performa nce characteristics determined by [facility] in a manner co nsistent with CLIA requirements. This test has not bee n cleared or approved by the U.S. Food and Drug Admin istration. Specimen Anatomical Collection Method Collection Time Receive d Time (Source) Location / / Volume Laterality Stool 07/18/2018 11:07 07/18/2018 AM CDT 11:07 AM CDT Emil uZrita M.D. LAB BODY FLUIDS AND STOOLS O GERMAN Performing Organization Address City/State/ZIP Code Phon e Number [facility] - [address] [address] [facility] Bile Acids, Bowel Dysfunction, 48 Hour, Feces (07/13/2018 2:30 PM CDT) P athologist Signature Bile Acids, % 0.0 <=3.7 % 07/16/2018 [facility] CDCA + CA total 12:16 PM CDT [facility] Total Bile 138 <=2619 07/16/2018 [facility] Acids mcmol/48h 12:16 PM CDT [facility] Comment: ----ADDITIONAL INFORMATION---- This test was developed and its performa nce characteristics determined by [facility] in a manner consistent [...] City/State/ZIP Code Phon e Number [facility] - [address] [place], [place] [address] [facility] documented in this encounter Visit Diagnoses Diagnosis Diarrhea Dilation Pancreatic Duct Stone Pancreatic Duct Pancreatitis Chronic (HCC) documented in this encounter Additional Health Concerns Assessment Noted Time PHQ-9 Depression Total Score: 18 04/28/2018 11:27 AM C DT documented as of this encounter Care Teams Automated Manufacturing Instructor Relationship Specialty Start Date End Date Ewa Alejandro M.D. PCP - General 03/13/17 01/09/20 [address] [place] [address] documented as of this encounter
--- OUTSIDE RECORDS SUMMARY | 2022-05-28 06:53 | XMS_ITS | Encounter Summary ---
:1945 Author Organization [facility] Address [address] [place] [address] Care Team Providers Name Role Phone Ewa Alejandro M.D. Primary Care Provider [phone] Reason for Referral MRI/CAT/PET Scan (Routine) - Closed Specialty Diagnoses / Procedures Referred By Contact Refer red To Contact Radiology Diagnoses Diarrhea Dilation Pancreatic Duct Stone Pancreatic Duct Pancreatitis Chronic (HCC) Emil Zurita M.D. [facility] Procedures CT Abdomen Pelvis with IV Contrast CT Abdomen Pelvis without and with IV Contrast OR CT ABD&PELVIS WO/W CNTRST HC CT ABD&PELVIS WO/W CNTRST OR CT ABD&PELVIS WO/W CNTRST OR CT ABD&PELVIS W CNTRST HC CT ABD&PELVIS W CNTRST [address] [place] [address] ABD&[place] [address] Referral ID Status Reason Start Date Expiration Date Visits Requ ested Visits Authorized [id number] Closed 07/10/2018 07/10/2019 1 1 ENSATION AND HRIS ANALYST Reason for Visit MRI/CAT/PET Scan (Routine) - Closed Specialty Diagnoses / Procedures Referred By Contact Refer red To Contact Radiology Diagnoses Diarrhea Dilation Pancreatic Duct Stone Pancreatic Duct Pancreatitis Chronic (HCC) Emil Zurita M.D. [facility] Procedures CT Abdomen Pelvis with IV Contrast CT Abdomen Pelvis without and with IV Contrast OR CT ABD&PELVIS WO/W CNTRST HC CT ABD&PELVIS WO/W CNTRST OR CT ABD&PELVIS WO/W CNTRST OR CT ABD&PELVIS W CNTRST HC CT ABD&PELVIS W CNTRST [address] [facility] [place] CT ABD&[place] [address] Referral ID Status Reason Start Date Expiration Date Visits Requ ested Visits Authorized [id number] Closed 07/10/2018 07/10/2019 1 1 Encounter Details Date Type Department Care Team Description 08/19/2018 Hospital Encounter Department of ParminderJamaal ; Radiology, Leanne Stein M.D. Dilation Pancreatic Duct (HCC); Building, in [address] [place] [address] Stone Pancreatic Duct (HCC); [place], [place] Pancreatitis Chronic (HCC) [address] [place] [address] [place], [place] [phone] [address] (Work) [phone] Social History Tobacco Use Types Packs/Day Years [...] do you attend faith or Never 2021 sikhism services? Do you [...] 102 kg (225 lb) 08/19/2018 12:10 PM COMPENSATION AND HRIS ANALYST Height 188 cm (6' 2) 08/19/2018 12:10 PM COMPENSATION AND HRIS ANALYST Body Mass Index 28.89 08/19/2018 12:10 PM COMPENSATION AND HRIS ANALYST documented in this encounter Medications at Time [...] 0 014 05/06/2020 mg tablet mouth daily. albuterol [...] KwikPen) 100 unit/mL for: Diabetes (70-30) injection hbpnbp-jhstjvwv-uwsaykr Take 2 capsules by 120 capsule 0 [...] 12:07 PM CST Creatinine 1.0, GFR >30 ENSATION AND HRIS ANALYST documented in this encounter Plan of Treatment Not on filedocumented as of this encounter Procedures Procedure Name Priority Date/Time Associated Comments Diagnosis CT ABDOMEN PELVIS RAD - Routine 08/19/2018 12:43 Diarrhea Results for this WITH IV CONTRAST (most inpatients PM COMPENSATION AND HRIS ANALYST Dilation procedu re are in and all Pancreatic Duct the results outpatients) (HCC) section. Stone Pancreatic Duct (HCC) Pancreatitis Chronic (HCC) CREATININE, POCT, Routine 08/19/2018 12:06 Result s for this B PM COMPENSATION AND HRIS ANALYST procedure are i n the results section. CREATININE, POCT, Routine 08/19/2018 12:06 Result s for this B PM COMPENSATION AND HRIS ANALYST procedure are i n the results section. documented in this encounter Results CT Abdomen Pelvis with IV Contrast (08/19/2018 12:43 PM COMPENSATION AND HRIS ANALYST) Anatomical Region Laterality Modality Abdomen, Pelvis, Abdominal RST LOS, Abdominal ARZ LOS, N/A Computed Tomography Abdominal FLA LOS Specimen (Source) Anatomical Collection Method Collection Time Re ceived Time Location / / Volume Laterality 08/19/2018 1:29 PM COMPENSATION AND HRIS ANALYST Impressions 08/19/2018 1:48 PM COMPENSATION AND HRIS ANALYST IMPRESSION: ?? 1. Chronic calcific pancreatitis. Narrative 08/19/2018 1:48 PM COMPENSATION AND HRIS ANALYST EXAM: ??CT ABDOMEN PELVIS WITH IV [...] in course and calibe r. There is ylfs-ou-opfhisvw arthrosclerotic calcification of the aor ta and [...] in course and calibe r. There is wkus-pa-delofygm arthrosclerotic calcification of the aor ta and branch vessels. There is soft tissue stranding within th e ventral abdominal subcutaneous tissue, unchanged. No suspicious osteolytic or osteoblastic lesions. 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 Chronic calcific pancreatitis. Emil Zurita M.D. IMG CT PROCEDURES Creatinine, POCT (08/19/2018 12:06 PM COMPENSATION AND HRIS ANALYST) P athologist Signature Creatinine, 1.0 0.7 - 1.4 08/19/2018 POC COVENTRY POCT, B mg/dL 12:16 PM COMPENSATION AND HRIS ANALYST PERFORMING LABS Comment: ----ADDITIONAL INFORMATION---- Performed at the Point of Care Specimen Anatomical Collection Method Collection Time Receive d Time (Source) Location / / Volume Laterality Blood 08/19/2018 12:06 08/19/2018 PM COMPENSATION AND HRIS ANALYST 12:16 PM COMPENSATION AND HRIS ANALYST Unknown Provider LAB POCT ORDERABLES - DEVICE Performing Organization Address [facility] Phon e Number [facility] PERFORMING LABS [address] [place] [address] Creatinine, POCT (08/19/2018 12:06 PM COMPENSATION AND HRIS ANALYST) P athologist Signature eGFR-Black/Afr 85 >=60 08/19/2018 POC RST ican Chinese, mL/min/BSA 12:17 PM COMPENSATION AND HRIS ANALYST RESTORATIONIST POCT OUTPATIENT LABS Comment: ----ADDITIONAL INFORMATION---- Estimated GFR calculated using the 2009 CKD_EPI creatinine equation. eGFR Non-Black/ 73 >=60 mL/min/BSA 08/19/2018 12:17 POC RST RESTORATIONIST Chinese, POCT PM COMPENSATION AND HRIS ANALYST OUTPATIENT LABS Comment: ----ADDITIONAL INFORMATION---- Estimated GFR calculated using the 2009 CKD_EPI creatinine equation. Specimen Anatomical Collection Method Collection Time Receive d Time (Source) Location / / Volume Laterality Blood 08/19/2018 12:06 08/19/2018 PM COMPENSATION AND HRIS ANALYST 12:16 PM COMPENSATION AND HRIS ANALYST Unknown Provider LAB POCT ORDERABLES - DEVICE Performing Organization Address [facility] Phon e Number POC RST RESTORATIONIST OUTPATIENT [address] [place], [place] [address] LABS documented in this encounter Visit Diagnoses Diagnosis Diarrhea Dilation Pancreatic Duct Stone Pancreatic Duct Pancreatitis Chronic (HCC) documented in this encounter Administered Medications Inactive Administered Medications - up to 3 most recent administrations Medication Order MAR Action Action Date Dose Rate Site iohexol 300 mg iodine/mL solution Given 08/19/2018 12:37 PM COMPENSATION AND HRIS ANALYST 140 mL 1-200 mL (OMNIPAQUE) 1-200 mL, intravenous, Once in imaging, contrast, Starting on Fri08/19/18 at 1202, For 1 dose, Imaging Protocol Orders, Dose per Radiant Medication Guidelines sodium chloride injection 2.5 mL Given 08/19/2018 12:43 PM COMPENSATION AND HRIS ANALYST 2.5 mL 2.5 mL, intravenous, As needed, line care, Starting on Fri08/19/18 at 1208 documented in this encounter Additional Health Concerns Assessment Noted Time PHQ-9 Depression Total Score: 18 04/28/2018 11:27 AM C DT documented as of this encounter Care Teams Head Of Digital Relationship Specialty Start Date End Date Ewa Alejandro M.D. PCP - General 03/13/17 01/09/20 [address], [place] [address] documented as of this encounter
--- OUTSIDE RECORDS SUMMARY | 2022-05-28 06:53 | XMS_ITS | Encounter Summary ---
:1945 Author Organization [facility] Address [address] [place] [address] Care Team Providers Name Role Phone Ewa Alejandro M.D. Primary Care Provider [phone] Reason for Visit Reason Comments Med Refill Encounter Details Date Type Department Care Team Description 08/11/2018 Refill Division of Gastroenterology in Emil Zurita, [facility] Refill [place], [place] [address] [facility] [address] [place] [address] [place], [place] [phone] (Wo rk) Social History Tobacco Use Types [...] do you attend worship or Never 2021 mormon services? Do you [...] as of this encounter Care Teams Guest Relations Receptionist Relationship Specialty Start Date End Date Ewa Alejandro M.D. PCP - General 03/13/17 01/09/20 [address], [place] [address] documented as of this encounter
--- OUTSIDE RECORDS SUMMARY | 2022-05-28 06:53 | XMS_ITS | Encounter Summary ---
:1945 Author Organization [facility] Address [address] [place] [address] Care Team Providers Name Role Phone Ewa Alejandro M.D. Primary Care Provider [phone] Encounter Details Date Type Department Care Team Description 08/19/2018 Anesthesia Event Division of Chad Cole, Gastroenterology in [facility], [facility], [place], [place] [address] [facility] [address] [place] [phone] Anesthesia Record Procedure Summary Procedure Name Responsible Anesthesia Start Anesthesia Stop Time Anesthesiologist Time EGD Chad Cole, POLISH COMPOUNDER, 08/19/18 0800 08/19/18 0930 (ESOPHAGEALGASTRODU [facility], [facility] ODENOSCOPY) Events Date Time Event Comment 08/19/2018 [...] h andoff to the receiving staff during [facility] ch we 1. Identified the patient 2. [...] Mayer APRN, SWEETIE, Time: 807 (created via [facility] procedure documentation); Mask Ventilation: Easy [...] do you attend taoism or Never 2021 sabianism services? Do you [...] Room / Location: Division of Gastroenterology in [place], [place] Anesthesia Start: 0800 Anesthesia Stop: 929 [...] none Anesthesia observations: refractory nausea and vomiting TED CIRCUIT BOARD PCB DRAFTSMAN Anesthesia Procedure Notes - Chad Cole APRN, [...] Procedure outcome: successful Airway event: no complications [facility] Anesthesia Preprocedure Evaluation - Sebas Ying [...] patient / legal guardian, or through an job order clerk; patient evaluated and approved for anesthesia / sedation. The use of blood products not discussed TED CIRCUIT BOARD PCB DRAFTSMAN documented in this encounter Plan of Treatment Not on filedocumented as of this encounter Procedures Procedure Name Priority Date/Time Associated Comments Diagnosis LDA ANE ENDOTRACHEAL Routine 08/19/2018 8:22 AM R esults for this AIRWAY PRINTED CIRCUIT BOARD PCB DRAFTSMAN procedure are i n the results section. documented in this encounter Results LDA ANE ENDOTRACHEAL AIRWAY (08/19/2018 8:22 AM PRINTED CIRCUIT BOARD PCB DRAFTSMAN) Narrative Chad Cole APRN, CRNA - 08/19/2018 8:22 AM PRINTED CIRCUIT BOARD PCB DRAFTSMAN Chad Cole APRN, CRNA ? 08/19/2018 ??8:22 [...] ePHEDrine (PF) injection Given 08/19/2018 8:30 AM PRINTED CIRCUIT BOARD PCB DRAFTSMAN 10 mg intravenous, As needed, Starting on Fri08/19/18 at 0830, Anesthesia Intra-op fentaNYL injection (SUBLIMAZE) Given 08/19/2018 8:45 AM PRINTED CIRCUIT BOARD PCB DRAFTSMAN 50 mcg intravenous, As needed, severe pain or score 7-10 of 10, Starting on Fri08/19/18 at 0805, Anesthesia Intra-op Given 08/19/2018 8:14 AM PRINTED CIRCUIT BOARD PCB DRAFTSMAN 50 mcg Given 08/19/2018 8:08 AM PRINTED CIRCUIT BOARD PCB DRAFTSMAN 50 mcg lactated ringers New Bag 08/19/2018 9:12 AM PRINTED CIRCUIT BOARD PCB DRAFTSMAN intravenous, Continuous Infusion: Per Instructions PRN, Starting on Fri08/19/18 at 0800, Anesthesia Intra-op New Bag 08/19/2018 8:00 AM PRINTED CIRCUIT BOARD PCB DRAFTSMAN lidocaine (PF) (cardiac) injection Given 08/19/2018 8:05 AM PRINTED CIRCUIT BOARD PCB DRAFTSMAN 100 mg intravenous, As needed, Starting on Fri08/19/18 at 0805, Anesthesia Intra-op ondansetron (PF) injection (ZOFRAN) Given 08/19/2018 8:05 AM PRINTED CIRCUIT BOARD PCB DRAFTSMAN 4 mg intravenous, As needed, nausea, vomiting, Starting on Fri08/19/18 at 0805, Anesthesia Intra-op propofol 10 mg/mL infusion Rate/Dose 08/19/2018 8:45 75 mcg/kg/min 4 6.5 mL/hr (DIPRIVAN) Change AM PRINTED CIRCUIT BOARD PCB DRAFTSMAN Continuous Infusion: Per Instructions PRN, Starting on Fri08/19/18 at 0807, Anesthesia Intra-op Rate/Dose Change 08/19/2018 8:24 AM PRINTED CIRCUIT BOARD PCB DRAFTSMAN 100 mcg/kg/min 62 mL/hr Rate/Dose Change 08/19/2018 8:12 AM PRINTED CIRCUIT BOARD PCB DRAFTSMAN 125 mcg/kg/min 77.5 mL/hr propofol injection (DIPRIVAN) Given 08/19/2018 8:45 AM PRINTED CIRCUIT BOARD PCB DRAFTSMAN 50 mg intravenous, As needed, Starting on Fri08/19/18 at 0806, Anesthesia Intra-op Given 08/19/2018 8:16 AM PRINTED CIRCUIT BOARD PCB DRAFTSMAN 30 mg Given 08/19/2018 8:14 AM PRINTED CIRCUIT BOARD PCB DRAFTSMAN 50 mg rocuronium injection (ZEMURON) Given 08/19/2018 8:15 AM PRINTED CIRCUIT BOARD PCB DRAFTSMAN 30 mg As needed, Starting on Fri08/19/18 at 0815, Anesthesia Intra-op succinylcholine-0.9% NaCl (PF) injection Given 08/19/2018 8:06 A M PRINTED CIRCUIT BOARD PCB DRAFTSMAN 100 mg (ANECTINE) intravenous, As needed, Starting on Fri08/19/18 at 0806, Anesthesia Intra-op sugammadex injection (BRIDION) Given 08/19/2018 9:07 AM PRINTED CIRCUIT BOARD PCB DRAFTSMAN 200 mg As needed, Starting on Fri08/19/18 at 0907, Anesthesia Intra-op documented in this encounter Additional Health Concerns Assessment Noted Time PHQ-9 Depression Total Score: 18 04/28/2018 11:27 AM C DT documented as of this encounter Care Teams Safety Specialist Relationship Specialty Start Date End Date Ewa Alejandro M.D. PCP - General 6/15/17 [id number] [place] [address] documented as of this encounter
--- OUTSIDE RECORDS SUMMARY | 2022-05-28 06:53 | XMS_ITS | Encounter Summary ---
:1945 Author Organization [facility] Address [address] [place] [address] Care Team Providers Name Role Phone Ewa Alejandro M.D. Primary Care Provider [phone] Reason for Referral Outpatient (Routine) - Closed Specialty Diagnoses / Procedures Referred By Contact Refer red To Contact Diagnoses Diarrhea Persistent Unexplained Emil Zurita M.D. [facility] Procedures Colonoscopy [address] [place] [address] Referral ID Status Reason Start Date Expiration Date Visits Requ ested Visits Authorized [id number] Closed 07/27/2018 07/27/2019 1 1 DER DRIVER Outpatient (Routine) - Closed Specialty Diagnoses / Procedures Referred By Contact Refer red To Contact Diagnoses Diarrhea Persistent Unexplained Emil Zurita M.D. [place] Procedures EUS [address] [place] [address] Referral ID Status Reason Start Date Expiration Date Visits Requ ested Visits Authorized [id number] Closed 07/27/2018 07/27/2019 1 1 DER DRIVER Outpatient (Routine) - Closed Specialty Diagnoses / Procedures Referred By Contact Refer red To Contact Diagnoses Diarrhea Persistent Unexplained Emil Zurita M.D. [facility] Procedures EGD [address] [place] [address] Referral ID Status Reason Start Date Expiration Date Visits Requ ested Visits Authorized [id number] Closed 07/27/2018 07/27/2019 1 1 DER DRIVER Reason for Visit Outpatient (Routine) - Closed Specialty Diagnoses / Procedures Referred By Contact Refer red To Contact Diagnoses Diarrhea Persistent Unexplained Emil Zurita M.D. [place] Procedures EGD [address] [place] [address] Referral ID Status Reason Start Date Expiration Date Visits Requ ested Visits Authorized [id number] Closed 07/27/2018 07/27/2019 1 1 Encounter Details Date Type Department Care Team Description 08/19/2018 Hospital Division of Jeovany Zurita M.D. [address] [place] [phone] Diarrhea Encounter Gastroenterology in Chad Jenkins W, ICE MAKER, HADOOP INFRASTRUCTURE ARCHITECT, DNAP [address] [place] [phone] Persistent [place], [place] Unexplained [address] [place] [address] Social History Tobacco Use Types Packs/Day [...] do you attend religious or Never 2021 anglican services? Do you [...] Comments Blood Pressure 138/71 08/19/2018 9:45 AM SKIDDER DRIVER Pulse 77 08/19/2018 9:45 AM SKIDDER DRIVER Temperature 36.6 ??C (97.9 ??F) 08/19/2018 9:28 AM SKIDDER DRIVER Respiratory Rate 26 08/19/2018 9:45 AM SKIDDER DRIVER Oxygen Saturation 96% 08/19/2018 9:45 AM SKIDDER DRIVER Inhaled Oxygen Concentration - - Weight 103 kg (227 lb 11.2 oz) 08/19/2018 7:30 AM SKIDDER DRIVER Height 188 cm (6' 2.02) 08/19/2018 7:30 AM SKIDDER DRIVER Body Mass Index 29.22 08/19/2018 7:30 AM SKIDDER DRIVER documented in this encounter Discharge Instructions AttachmentsThe following attachments cannot be sent through Care Everywhere. About Your Colonoscopy (Citizen [place])About Your Upper Endoscopy (Citizen [place])documented in this encounter Medications at Time of [...] 08/19/2018 8:25 AM Res ults for this SKIDDER DRIVER procedure are i n the results section. BACTERIAL CULTURE, Routine 08/19/2018 8:22 AM Res ults for this AEROBIC + SUSC SKIDDER DRIVER procedure are in the results section. BACTERIAL CULTURE, Routine 08/19/2018 8:22 AM Res ults for this ANAEROBIC + SUSC SKIDDER DRIVER procedure a re in the results section. COLONOSCOPY Routine 08/19/2018 7:46 AM Diarrhea Persistent Re sults for this SKIDDER DRIVER Unexplained procedure are i n the results section. COLONOSCOPY Routine 08/19/2018 7:46 AM Diarrhea Persistent SKIDDER DRIVER Unexplained UPPER EUS Routine 08/19/2018 7:46 AM Diarrhea Persistent Re sults for this SKIDDER DRIVER Unexplained procedure are i n the results section. ENDOSCOPIC Routine 08/19/2018 7:46 AM Diarrhea Persistent ULTRASOUND (EUS) SKIDDER DRIVER Unexplained documented in this encounter Results Surgical Pathology (08/19/2018 8:25 AM SKIDDER DRIVER) Component Value Ref Test Analysis Performed At [facility] Range Method Time Signature Gross Description A: ?? Received in formalin labeled with the patie nt's name, 08/21/2018 [facility] medical record number, and duodenum-second part duodenum 12:38 PM LABORATORIES - are seven pale samson-pink irregular soft tissue fragments, SKIDDER DRIVER [facility] ranging from 0.1-0.4 cm in [...] cassette E1. Grossed by Eric Parish M.D. [phone] [facility] electronically I verify that I have examined all relevant slides/ma terials 12:38 PM LABORATORIES - signed by for the specimen(s) and rendered or confirmed the diagnosi s. [facility] 08/21/2018 [facility] 12:38 PM LABORATORIES - [facility] Interpretation FINAL DIAGNOSIS 08/21/2018 [facility] A. Duodenum, 2nd part duodenum, endoscopic biopsy: 12:38 PM LABORATORIES - Duodenal mucosa with healing erosion and foveolar [facility]. ??No evidence of celiac disease, Whipple's [...] Volume Laterality Biopsy (Duodenum) 08/19/2018 8:25 AM SKIDDER DRIVER Biopsy (Ileum) 08/19/2018 8:57 AM SKIDDER DRIVER Polyp (Colon) 08/19/2018 9:01 AM SKIDDER DRIVER Biopsy (Colon) 08/19/2018 9:04 AM SKIDDER DRIVER Biopsy (Colon) 08/19/2018 9:05 AM SKIDDER DRIVER Narrative This result has an attachment that is no t available. Dhiraj Albarran M.D. LAB SURG PATH ORDERABLES Performing Organization Address [facility]/ZIP Code Phon e Number [facility] LABORATORIES - [address] [phone] [address] [facility] Bacterial Culture, Aerobic + Susc (08/19/2018 8:22 AM SKIDDER DRIVER) [facility] Method Time Signature Bacterial No growth of 08/21/2018 [facility] Culture, aerobic gram 10:52 AM SKIDDER DRIVER LABORATORIES - Aerobic + negative [facility] bacillus or CAMPUS yeast Specimen (Source) Anatomical Collection Method Collection Time Re ceived Time Location / / Volume Laterality Aspirate 08/19/2018 8:22 AM (Duodenum) SKIDDER DRIVER Dhiraj Albarran M.D. LAB MICROBIOLOGY - GENERAL O RDERABLES Performing Organization Address City/[facility]/ZIP Code Phon e Number [facility] LABORATORIES - [address] [address] [facility] Bacterial Culture, Anaerobic + Susc (08/19/2018 8:22 AM SKIDDER DRIVER) [facility] Method Time Signature Bacterial Total intestinal surekha (anaerobic and/or aerobic) 08/21/2018 [facility] Culture, >100,000 cfu/mL 7:45 AM SKIDDER DRIVER LABORATORIES - Anaerobic + [facility] CAMP[facility] Specimen (Source) Anatomical Collection Method Collection Time Re ceived Time Location / / Volume Laterality Aspirate 08/19/2018 8:22 AM (Duodenum) SKIDDER DRIVER Dhiraj Albarran M.D. LAB MICROBIOLOGY - GENERAL O RDERABLES Performing Organization Address City/[facility]/ZIP [facility] [place] [place] Phon e Number [facility]IES - [address] [address] [address] [facility] Colonoscopy (08/19/2018 7:46 AM SKIDDER DRIVER) Specimen (Source) Anatomical Collection Method Collection Time Re ceived Time Location / / Volume Laterality 08/19/2018 7:46 AM SKIDDER DRIVER [facility]ressions [facility] 08/19/2018 9:16 AM SKIDDER DRIVER Post-op Diagnoses: ? - One 5 mm polyp in the ascending colon, removed with a cold snare. ? Resected and retrieved. ? - The examination was otherwise n ormal on direct and retroflexion views. ? - Biopsies were taken with a cold forceps for histology in the entire ? colon and in the terminal ileum. Narrative [facility] - 08/19/2018 9:16 AM SKIDDER DRIVER [facility] Patient Name: Jonnathan Costa [...] HEALTHCARE NA Upper EUS (08/19/2018 7:46 AM SKIDDER DRIVER) Specimen (Source) Anatomical Collection Method Collection Time Re ceived Time Location / / Volume Laterality 08/19/2018 7:46 AM SKIDDER DRIVER Impressions [facility] - 08/19/2018 9:20 AM SKIDDER DRIVER Post-op Diagnoses: ? - Normal esophagus. ? [...] ? features, nor high rigk stigmata. Narrative [facility] - 08/19/2018 9:20 AM SKIDDER DRIVER [facility] Patient Name: Jonnathan Costa [...] documented as of this encounter Care Teams Pipe Production Worker Relationship Specialty Start Date End Date Ewa Alejandro M.D. PCP - General 03/13/17 01/09/[address] [place] [phone] documented as of this encounter
--- OUTSIDE RECORDS SUMMARY | 2022-05-28 06:53 | XMS_ITS | Encounter Summary ---
:1945 Author Organization [facility] Address [address] [place] [address] Care Team Providers Name Role Phone Ewa Alejandro M.D. Primary Care Provider [phone] Encounter Details Date Type Department Care Team Description 07/02/2018 Hospital Encounter Department of Laboratory Emil Zurita, Diarrhea Medicine in [place] [address] [address] [phone] Social History Tobacco Use Types Packs/Day Years [...] Transglutaminase), Antibody, IgA (07/02/2018 8:45 AM CDT) [facility] Method Time Signature Tissue <1.2 <4.0 07/03/2018 [facility] Transglutaminase Ab, (Negative 12:51 PM LABORATOR IES - IgA, S ) U/mL CDT [facility] Specimen Anatomical Collection Method Collection Time Receive d Time (Source) Location / / Volume Laterality Blood 07/02/2018 8:45 AM 8 CDT 12:51 PM CDT Emil Zurita M.D. LAB BLOOD ADD-ON Performing Organization Address City/State/ZIP Code Phon e Number [facility] LABORATORIES - [address] [facility] [place] [address] [facility] T4 (Thyroxine), Free, Serum (07/02/2018 8:45 AM CDT) athologist Signature T4 (Thyroxine), 1.2 0.9 - 1.7 07/02/2018 [facility] Free, S ng/dL 2:12 PM CDT [facility] Comment: Biotin has been identified [...] Code Phon e Number [facility] [address], [place] [address] LAB Vitamin A and Vitamin E (07/02/2018 8:45 AM CDT) athologist Signature Vitamin A 60.0 32.5 - 78.0 07/07/2018 [facility] mcg/dL 2:06 AM CDT [facility] Comment: ----ADDITIONAL INFORMATION---- This test was developed and its performa nce characteristics determined by [facility] in a manner consistent with CLIA requirements. This test has not been cleared or approved by the [place] d and Drug Administration. A-Tocopherol, Vitamin E 14.1 5.5 - 17.0 07/07/2018 9:25 PM [facility] mg/L CDT [facility] Comment: ----ADDITIONAL INFORMATION---- This test was developed and its performa nce characteristics determined by [facility] in a manner consistent with CLIA requirements. This test has not been cleared or approved by the [place] d and Drug Administration. Specimen Anatomical Collection Method Collection Time Receive d Time (Source) Location / / Volume Laterality Blood (Blood, 07/02/2018 8:45 AM 07/03/20 4:13 Venous) CDT PM CDT Narrative [facility] - 07/07/2018 9:25 PM CDT Specimen Information: Specimen ID: [id number] Specimen Type: Blood Specimen Collection Start Date: 07/02/20 ??8:45 AM Specimen Received Date: 07/03/2018 ??4:1 3 PM Specimen ID: [id number] Specimen Type: Blood Specimen Collection Start Date: 07/02/20 ??8:45 AM Specimen Received Date: 07/03/2018 ??4:3 2 PM Emil Zurita M.D. LAB BLOOD NON ADD-ON Performing Organization Address City/[facility] Code Phon e Number [facility] [address] [place] [address] [facility] 25-Hydroxyvitamin D2 and D3 (07/02/2018 8:45 AM CDT) athologist Signature 25-Hydroxy D2 <4.0 ng/mL 07/03/2018 [facility] 10:08 PM CDT [facility] 25-Hydroxy D3 24 ng/mL 07/03/2018 [facility] 10:08 PM CDT [facility] 25-Hydroxy D 24 ng/mL 07/03/2018 [facility] Total 10:08 PM CDT [facility] Comment: ----REFERENCE VALUE---- 25-HYDROXY D TOTAL (D2+D3) Optimum level s in the healthy population are 20-50, patients with bone disease may benefit from higher levels within this r stan. ----ADDITIONAL INFORMATION---- This test was developed and its performa nce characteristics determined by [facility] in a manner consistent with CLIA requirements. This test has not been cleared or approved by the U.[place]. Sus[place] d and Drug Administration. Specimen Anatomical Collection Method Collection Time Receive d Time (Source) Location / / Volume Laterality Blood (Blood, 07/02/2018 8:45 AM 07/03/20 7:49 Venous) CDT AM CDT Emil Zurita M.D. LAB BLOOD ADD-ON Performing Organization Address City/[facility] Phon e Number [facility] [address] [place], [place] [address] [facility] Creatinine with Estimated GFR (07/02/2018 8:45 AM CDT) athologist Signature Creatinine 1.01 0.74 - 07/02/2018 [facility] 1.35 mg/dL 11:10 AM T [facility] eGFR-Non 73 >=60 07/02/2018 [facility] Black/ mL/min/BSA 11:10 AM [facility] [place] Comment: ----ADDITIONAL INFORMATION---- Estimated GFR calculated using the 2009 CKD_EPI creatinine equation. eGFR-Black/ 84 >=60 mL/min/BSA 2017 11:10 AM [facility] Comment: ----ADDITIONAL INFORMATION---- Estimated GFR calculated using the 2009 CKD_EPI creatinine equation. Specimen Anatomical Collection Method Collection Time Receive d Time (Source) Location / / Volume Laterality Blood (Blood, 07/02/2018 8:45 AM 07/02/20 18 Venous) CDT 10:37 AM CDT Emil Zurita M.D. LAB BLOOD ADD-ON Performing Organization Address City/State/ZIP Code Phon e Number [facility] [address] [place] [address] LAB Sodium (07/02/2018 8:45 AM CDT) athologist Signature Sodium, S 141 135 - 145 07/02/2018 [facility] mmol/L 11:10 AM T [facility] Specimen Anatomical Collection Method Collection Time Receive d Time (Source) Location / / Volume Laterality Blood (Blood, 07/02/2018 8:45 AM 07/02/20 18 Venous) CDT 10:37 AM CDT Emil Zurita M.D. LAB BLOOD ADD-ON Performing Organization Address City/State/[facility] Code Phon e Number [facility] [address] [place] [address] LAB Potassium (07/02/2018 8:45 AM CDT) athologist Signature Potassium, S 4.6 3.6 - 5.2 07/02/2018 [facility] mmol/L 11:10 AM CDT [facility] Specimen Anatomical Collection Method Collection Time Receive d Time (Source) Location / / Volume Laterality Blood (Blood, 07/02/2018 8:45 AM 07/02/20 Venous) CDT 10:37 AM CDT Authorizing Provider Result Deloris Zruita M.D. LAB BLOOD ADD-ON Performing Organization Address City/State/ZIP Code Phon e Number [facility] [address] [place] [address] LAB CRP (C-Reactive Protein) (07/02/2018 8:45 AM CDT) athologist Signature C-Reactive <3.0 <=8.0 mg/L 07/02/2018 [facility] Protein (CRP), 4:22 PM CDT [facility] Specimen Anatomical Collection Method Collection Time Receive d Time (Source) Location / / Volume Laterality Blood (Blood, 07/02/2018 8:45 AM 07/02/20 4:03 Venous) CDT PM CDT Emil Zurita M.D. LAB BLOOD ADD-ON Performing Organization Address City/State/ZIP Code Phon e Number [facility]- [address] [place] [address] MAC LAB (ABNORMAL) Thyroid Function [place] (07/02/2018 8:45 AM CDT) athologist Signature TSH, Sensitive 5.1 (H) 0.3 - 4.2 07/02/2018 [facility] mIU/L 12:24 PM CDT [facility] Comment: Biotin has been identified [...] BLOOD ADD-ON Performing Organization Address City/[facility]/ZIP Code Phon e Number [facility]- [facility] [address] [place] [address] LAB Celiac Disease Serology [place] (07/02/2018 8:45 AM CDT) Component Value Ref Test Analysis Performed At [facility] Method Time Signature Immunoglobulin A 151 61 - 07/03/2018 [facility] (IgA), S 356 8:15 AM LABORATORIES - mg/dL CDT [facility] Celiac Disease Negative serology. Celiac di sease unlikely. However, approximately 10% of 07/03/2018 [facility] Interpretation patients with celiac disease are seronegative. Also, patients who are already 10:25 PM LABORATORIES - adhering to a gluten-free diet may be seronegative. If melissa iac disease is CDT [facility] clinically suspected, consider HLA-DQ typing. CAMPUS Specimen Anatomical Collection Method Collection Time Receive d Time (Source) Location / / Volume Laterality Blood (Blood, 07/02/2018 8:45 AM 07/03/20 18 6:25 Venous) CDT AM CDT Emil Zurita M.D. LAB BLOOD ADD-ON Performing Organization Address City/[facility]/ZIP Code Phon e Number [facility]ORATORIES - [address] [place] [address] [facility] Thyroperoxidase (TPO) Antibodies, Serum (07/02/2018 8:32 AM CDT) [facility] Method Time Signature Thyroperoxidase Ab, 0.9 <9.0 07/03/2018 [facility] IC S IU/mL 8:28 AM CDT LABORATORIES - [facility] Specimen Anatomical Collection Method Collection Time Receive d Time (Source) Location / / Volume Laterality Blood 07/02/2018 8:32 AM 8 7:45 CDT AM CDT Emil Zurita M.D. LAB BLOOD NON ADD-ON Performing Organization Address City/[facility]/ZIP Code Phon e Number [facility]ATORIES - [address] (ABNORMAL) CBC with Differential, Blood (07/02/2018 8:32 AM CDT) [facility] Method Time Signature Hemoglobin 12.1 (L) 13.2 - 07/02/2018 [facility] 16.6 g/dL 10:45 AM CDT [facility] Hematocrit 34.9 (L) 38.3 - 07/02/2018 [facility] 48.6 % 10:45 AM CDT [facility] Erythrocytes 4.01 (L) 4.35 - 07/02/2018 [facility] 5.65 10:45 AM CDT [facility] [place] MCV 87.0 78.2 - 07/02/2018 [facility] 97.9 fL 10:45 AM CDT [facility] RBC Distrib Width 12.8 11.8 - 07/02/2018 [facility] 14.5 % 10:45 AM CDT [facility] Platelet Count 209 135 - 317 07/02/2018 [facility] x10(9)/L 10:45 AM CDT [facility] Leukocytes 6.1 3.4 - 9.6 07/02/2018 [facility] x10(9)/L 10:45 AM CDT [facility] Neutrophils 3.97 1.56 - 07/02/2018 [facility] 6.45 10:45 AM CDT [facility] Lymphocytes 1.24 0.95 - 07/02/2018 [facility] 3.07 10:45 AM CDT [facility] [place] Monocytes 0.38 0.26 - 07/02/2018 [facility] 0.81 10:45 AM CDT [facility] Eosinophils 0.50 (H) 0.03 - 07/02/2018 [facility] 0.48 10:45 AM CDT [facility] Basophils 0.03 0.01 - 07/02/2018 [facility] 0.08 10:45 AM CDT [facility] Specimen Anatomical Collection Method Collection Time Receive d Time (Source) Location / / Volume Laterality Blood 07/02/2018 8:32 AM 8 CDT 10:40 AM CDT Emil Zurita M.D. LAB BLOOD ADD-ON Performing Organization Address City/State/ZIP Code Phon e Number [facility] [address] [place] [address] LAB documented in this encounter Visit Diagnoses Diagnosis Diarrhea documented in this encounter Additional Health Concerns Assessment Noted Time PHQ-9 Depression Total Score: 18 04/28/2018 11:27 AM C DT documented as of this encounter Care Teams Percussion Instrument Repairer Relationship Specialty Start Date End Date Ewa Alejandro M.D. PCP - General 03/13/17 01/09/202199 [place] [address] documented as of this encounter
--- OUTSIDE RECORDS SUMMARY | 2022-05-28 06:54 | XMS_ITS | Encounter Summary ---
:1945 Author Organization [facility] Address [address] [place] [address] Care Team Providers Name Role Phone Piero Alejandro M.D. Primary Care Provider [phone] Reason for Referral Outpatient (Routine) - Closed Specialty Diagnoses / Referred By Referred To Cont act Procedures Contact Gastroenterology and Diagnoses Diarrhea Nausea Pancreatitis Chronic (HCC) [facility] Piero walton M.D. [address] [place] [address] Referral ID Status Reason Start Date Expiration Date Visits V isits Requested Authorized [id number] Closed Specialty 06/18/2018 06/18/2019 1 1 Services Required Encounter Details Date Type Department Care Team Description 06/18/2018 Clinical Communication Department of [facility] Carlos, LMauroPJustina [facility], in [place], [address] [address] [place], [place] [phone] [address] (Work) [phone] Social History Tobacco Use Types Packs/Day Years [...] do you attend restorationism or Never 2021 confucianist services? Do you belong to any clubs or No 10/09/2021 organizations such as restorationism groups, unions, frablabfeed or athletic groups, or school groups? How [...] documented as of this encounter Care Teams Diversity Manager Relationship Specialty Start Date End Date Piero Alejandro M.D. PCP - General 03/13/17 01/09/[address] [place] [address] documented as of this encounter
--- OUTSIDE RECORDS SUMMARY | 2022-05-28 06:54 | XMS_ITS | Encounter Summary ---
:1945 Author Organization [facility] Address [address] [place] [address] Care Team Providers Name Role Phone Ewa Alejandro M.D. Primary Care Provider Encounter Details Date Type Department Care Team Description 06/22/2018 Clinical Communication Department of Family Kirill Torres [facility], [facility], in [place] [address] [place] [address] [phone] Social History Tobacco Use Types Packs/Day Years [...] do you attend yazdanism or Never 2021 hinduism services? Do you [...] documented as of this encounter Care Teams Graffiti Cleaner Relationship Specialty Start Date End Date Ewa Alejandro M.D. PCP - General 03/13/17 01/09/20 [address], [place] [address] documented as of this encounter
--- OUTSIDE RECORDS SUMMARY | 2022-05-28 06:54 | XMS_ITS | Encounter Summary ---
:1945 Author Organization [facility] Address [address] [place] [address] Care Team Providers Name Role Phone Ewa Alejandro M.D. Primary Care Provider [phone] Encounter Details Date Type Department Care Team Description 02/17/2018 Clinical Communication Department of Anjana Boateng, Medicine, [facility], [facility], [address] [place], [place] [address] [facility] [address] [place], [place] [phone] [address] (Work) [phone] Social History Tobacco Use Types Packs/Day Years [...] do you attend adventist or Never 2021 methodist services? Do you [...] on filedocumented in this encounter Care Teams Bow Making Machine Operator Relationship Specialty Start Date End Date Ewa Alejandro M.D. PCP - General 03/13/17 01/09/[address] [address] documented as of this encounter
--- OUTSIDE RECORDS SUMMARY | 2022-05-28 06:54 | XMS_ITS | Encounter Summary ---
:1945 Author Organization [facility] Address [address] [place] [address] Care Team Providers Name Role Phone Ewa Alejandro M.D. Primary Care Provider [phone] Reason for Visit Reason Comments Follow-up bladder cancer Outpatient (Routine) - Closed Specialty Diagnoses / Procedures Referred By Contact Refer red To Contact Diagnoses Cancer Bladder Family History Prasanna Bernal M.D. [facility] Procedures Cystoscopy (specific provider) [address] [place] [address] Referral ID Status Reason Start Date Expiration Date Visits Requ ested Visits Authorized [id number] Closed 01/15/2018 07/14/2018 1 1 Encounter Details Date Type Department Care Team Description 05/21/2018 Procedure visit Department of Urology Prasanna Bernal, Cancer Bladder in [place] Personal History [place] [address] [place] [address] [phone] Social History Tobacco Use Types Packs/Day Years [...] organizations such as latter day groups, unions, fraInterview Rocket or athletic groups, or school groups? How [...] Priority Date/Time Associated Diagnosis Comme nts CYTOLOGY NON-PLANTING SUPERVISOR Routine 05/21/2018 3:31 PM Cancer Bladder Res [...] Component Value Ref Test Analysis Performed At rocket staff Range Method Time Signature Result Summary Negative 05/29/2018 [facility] 4:55 PM LABORATORIES - [facility] Karyotype No evidence of 05/29/2018 [facility] urothelial 4:55 PM LABORATORIES - carcinoma. [facility] Reason for Evaluate for 05/29/2018 [facility] referral urothelial 4:55 PM LABORATORIES - carcinoma. [facility] Specimen Varies 05/29/2018 [facility] 4:55 PM LABORATORIES - [facility] Source voided 05/29/2018 [facility] 4:55 PM LABORATORIES - [facility] Released By Miguelito Machuca 05/29/2018 [facility] Pato Crowell, 4:55 PM LABORATORIES - Ph.D. [facility] Interpretation This test result does not rule out the possibility t hat the 05/29/2018 [facility] patient may have a low-grade (i.e. grade 1 or 2) 4:55 PM LABORATORIES - non-invasive papillary urothelial carcinoma. Some patients [facility] with low grade non-invasive papillary urothelial carcinoma [place] do not have abnormalities with this FISH test. Comment: ----ADDITIONAL INFORMATION---- Fluorescence in situ hybridization (FISH ) with centromere probes for chromosomes 3 (D3Z1), 7(D7Z1), 17(D17Z1) , and a locus specific probe for 9p21. This test has been modified from the man ufacturer's instructions. Its performance characteristics were determi darnell by [facility] in a manner consistent with [...] City/State/ZIP Code Phon e Number [facility] LABORATORIES - [address] [place], [place] [address] [facility] Cytology Non-PLANTING SUPERVISOR (05/21/2018 3:31 PM CDT) Component Value Ref Test Analysis Performed At [facility] gist Range Method Time Signature Gross Description Received 40 05/22/2018 [facility] ml of yellow 2:35 PM CDT [facility] alcohol fixed [facility] CYTOLOGY Collection urine void 05/22/2018 [facility] Procedure 2:35 PM CDT [facility] CYTOLOGY Fixative no 05/22/2018 [facility] 2:35 PM CDT [facility] CYTOLOGY Source A. Urine, 05/22/2018 [facility] voided 2:35 PM CDT [facility] CYTOLOGY Clinical History bladder 05/22/2018 [facility] cancer 2:35 PM T [facility] CYTOLOGY Report Jose Khan MD 05/22/2018 [facility] electronically I verify that I have examined all relevant slides/ma terials 2:35 PM T [facility] signed by for the specimen(s) and rendered or confirmed the diagnosi [facility] 05/22/2018 [facility] 2:35 PM CDT [facility] CYTOLOGY Interpretation A. Urine, voided (cytospin): Negative for High-Grade 05/22/2018 [facility] Urothelial Carcinoma. 2:35 PM CDT [facility] CYTOLOGY Specimen Anatomical Collection Method Collection Time Receive d Time (Source) Location / / Volume Laterality Varies 05/21/2018 3:31 PM 8 8:42 CDT AM CDT Narrative This result has an attachment that is no t available. Prasanna Bernal M.D. LAB SURG PATH ORDERABLES Performing Organization Address City/State/ZIP Code Phon e Number [facility] [address] [place] [address] CYTOLOGY documented in this encounter Visit Diagnoses Diagnosis Personal History Of Malignant Neoplasm O f Bladder documented in this encounter Additional Health Concerns Assessment Noted Time PHQ-9 Depression Total Score: 18 04/28/2018 11:27 AM C DT documented as of this encounter Care Teams Environmental Lead Relationship Specialty Start Date End Date Ewa Alejandro M.D. PCP - General 03/13/17 01/09/20 [address], [place] [address] documented as of this encounter
--- OUTSIDE RECORDS SUMMARY | 2022-05-28 06:54 | XMS_ITS | Encounter Summary ---
:1945 Author Organization [facility] Address [address] [place] [address] Care Team Providers Name Role Phone Shayla Alford D.O. Primary Care Provider [phone] Encounter Details Date Type Department Care Team Description 06/09/2018 Orders Only Department of Family Philip trimble Mellitus Type Medicine, Ewa Barclay, 2 (HCC) (Primary Dx) Clinic, in [place] [address] [place] [phone] Social History Tobacco Use Types Packs/Day [...] do you attend jewish or Never 2021 mandaeism services? Do you [...] COVID19 Pending 08/21/2020 08/21/2020 08/22/2020 6:39 AM MERCHANDISE STOCKER COVID19 Pending 12/23/2020 12/24/2020 12/25/2020 2:43 PM CDT Assessment Noted Time PHQ-9 Depression Total Score: 18 04/28/2018 11:27 AM C DT documented as of this encounter Care Teams Assistant Analyst Relationship Specialty Start Date End Date Shayla Alford D.O. PCP - General Internal Medicine 05/22/[address] [address] [phone] (work) documented as of this encounter
--- OUTSIDE RECORDS SUMMARY | 2022-05-28 06:54 | XMS_ITS | Encounter Summary ---
:1945 Author Organization [facility] Address [address] [place] [address] Care Team Providers Name Role Phone Ewa Alejandro M.D. Primary Care Provider [phone] Encounter Details Date Type Department Care Team Description 02/18/2018 Clinical Communication Department of Family Kirill Torres [facility], [facility], in [place] [address] [place] [address] [phone] Social History Tobacco Use Types Packs/Day Years [...] you attend jehovah's witness or Never 2021 confucianism services? Do you [...] on filedocumented in this encounter Care Teams Industrial Accountant Relationship Specialty Start Date End Date Ewa Alejandro M.D. PCP - General 03/13/17 01/09/20 [address] [place] [address] documented as of this encounter
--- OUTSIDE RECORDS SUMMARY | 2022-05-28 06:54 | XMS_ITS | Encounter Summary ---
:1945 Author Organization [facility] Address [address] [place] [address] Care Team Providers Name Role Phone Ewa Alejandro M.D. Primary Care Provider Encounter Details Date Type Department Care Team Description 02/18/2018 Orders Only Department of Family Sunny Martinez De hydration (Primary Medicine, [place] P.A.-C. Dx) Clinic, in [address] [address] [place], [place] [phone] (Work) [phone] Social History Tobacco Use Types Packs/Day Years [...] you attend latter day or Never 2021 confucianism services? Do you [...] Potassium, S 5.0 3.6 - 5.2 02/19/2018 [facility] mmol/L 3:28 PM [facility] Sodium, S 143 135 - 145 02/19/2018 [facility] mmol/L 3:28 PM [facility] Chloride, S 105 98 - 107 02/19/2018 [facility] mmol/L 3:28 PM [facility] Bicarbonate, S 22 22 - 29 02/19/2018 [facility] mmol/L 1:55 PM [facility] Anion Gap 16 (H) 7 - 15 02/19/2018 [facility] 3:28 PM [facility] BUN (Blood Urea 43 (H) 8 - 24 02/19/2018 [facility] Nitrogen), S mg/dL 1:55 PM [facility] Creatinine 1.49 (H) 0.74 - 02/19/2018 [facility] 1.35 mg/dL 1:55 PM [facility] eGFR-Non 46 (L) >=60 02/19/2018 [facility] Black/ mL/min/BSA 1:55 PM [facility] Comment: ----ADDITIONAL INFORMATION---- Estimated GFR calculated using the 2009 CKD_EPI creatinine equation. eGFR-Black/ 53 (L) >=60 mL/min/BSA 02/19/2018 1:55 [facility] Nicaraguan PM CDT [facility] [place] [facility] Comment: ----ADDITIONAL INFORMATION---- Estimated GFR calculated using the 2009 CKD_EPI creatinine equation. Calcium, Total, S 9.3 8.8 - 10.2 mg/dL 02/19/2018 1:55 PM [facility] [place] [facility] Glucose, S 292 (H) 70 - 140 mg/dL 02/19/2018 1:55 PM [facility] [place] [facility] Specimen Anatomical Collection Method Collection Time Receive d Time (Source) Location / / Volume Laterality Blood (Blood, 02/19/2018 9:34 AM 02/20/20 18 Venous) CDT 11:18 AM CDT Sunny Martinez P.A.-C. LAB BLOOD ADD-ON Performing Organization Address City/State/ZIP Code Phon e Number [facility] [address] [place] [address] [place] [facility] [address] [facility] documented in this encounter Visit Diagnoses Diagnosis Dehydration - Primary documented in this encounter Care Teams Knife Operator Relationship Specialty Start Date End Date Ewa Alejandro M.D. PCP - General 03/13/17 01/09/[address] [address] documented as of this encounter
--- OUTSIDE RECORDS SUMMARY | 2022-05-28 06:54 | XMS_ITS | Encounter Summary ---
:1945 Author Organization [facility] Address [address] [place] [address] Care Team Providers Name Role Phone Ewa Alejandro M.D. 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 Do you belong to any clubs or No 10/09/2021 organizations such as sabianist groups, unions, fraCnekt or athletic groups, or school groups? How [...] Chief Complaint Patient presents with ??? [facility] on 04/20/2018 with final [...] disorder with anxiety. He was started on Hnnwwxk27 mg once daily. He was also given [...] with Dr. Prasanna Bernal at the [facility]. ??? TONSILLECTOMY N/A PREVENTIVE SERVICES Social [...] noted on exposed skin. DIAGNOSTICS Records from [facility] Emergency Department are reviewed. ASSESSMENT / PLAN [...] as of this encounter Care Teams Meat Seafood Associate Relationship Specialty Start Date End Date Ewa Alejandro M.D. PCP - General 03/13/17 01/09/20 [address] [place] [phone] documented as of this encounter
--- OUTSIDE RECORDS SUMMARY | 2022-05-28 06:54 | XMS_ITS | Encounter Summary ---
:1945 Author Organization [facility] Address [address] [place] [address] Care Team Providers Name Role Phone Ewa Alejandro M.D. Primary Care Provider [phone] Reason for Visit Outpatient (Routine) - Closed Specialty Diagnoses / Referred By Referred To Cont act Procedures Contact Gastroenterology and Diagnoses Diarrhea Nausea Pancreatitis Chronic (HCC) [facility] Hepatology Ewa walton M.D. [address] [address] Referral ID Status Reason Start Date Expiration Date Visits V isits Requested Authorized [id number] Closed Specialty 06/18/2018 06/18/2019 1 1 Services Required Encounter Details Date Type Department Care Team Description 06/25/2018 Comprehensive Visit Division of Parmin[place], Diarrhea (Primary Dx); Gastroenterology in [place], Nausea; [place] Pancreatitis Chronic (HCC) [address] [facility] [address] [place] [address] [place] [address] Social History Tobacco Use Types Packs/Day Years [...] 10/09/2021 organizations such as mu-ism groups, unions, fraBusiness Exchange or athletic groups, or school groups? How [...] experience up to 30 bowel movements mostly Guild 6 and 7. The frequency has decreased somewhat over the past 2 months and the consistencyhas become more Guild fiber 6. There are still days where [...] (HCC) 10/16/2009 Pulmonary symptomatology, diagnosis at the [place] [...] 08/28/[address] Prasanna Bernal at the [facility]. ??? TONSILLECTOMY ??? VASECTOMY Allergies Allergen [...] day with meals. 06/22/18 06/22/19 Sabine Landis, HEREDITARY CANCER PROGRAM COORDINATOR, C.N.P. omega-3 fatty acids-fish oil 300-1,000 mg [...] Panel, PCR, Feces (07/10/2018 6:00 AM CDT) [facility] Method Time Signature Specimen Source STOOL 07/10/2018 [facility] 8:38 PM CDT [facility] Campylobacter Negative Negative 07/10/2018 [facility] species 8:38 PM CDT [facility] C. difficile toxin Negative Negative 07/10/2018 [facility] 8:38 PM CDT [facility] Plesiomonas Negative Negative 07/10/2018 [facility] shigelloides 8:38 PM CDT [facility] Salmonella species Negative Negative 07/10/2018 [facility] 8:38 PM CDT [facility] Vibrio species Negative Negative 07/10/2018 [facility] 8:38 PM CDT [facility] Vibrio cholerae Negative Negative 07/10/2018 [facility] 8:38 PM CDT [facility] Yersinia species Negative Negative 07/10/2018 [facility] 8:38 PM CDT [facility] Enteroaggregative E. Negative Negative 07/10/2018 [facility] [place] coli (EAEC) 8:38 PM CDT [facility] Enteropathogenic E. Negative Negative 07/10/2018 [facility] coli (EPEC) 8:38 PM CDT [facility] Enterotoxigenic E. Negative Negative 07/10/2018 [facility] coli (ETEC) 8:38 PM CDT [facility] Shiga toxin Negative Negative 07/10/2018 [facility] producing E. coli 8:38 PM CDT [facility] Shigella/Enteroinvas Negative Negative 07/10/2018 [facility] [place] akil E. coli 8:38 PM CDT [facility] Cryptosporidium Negative Negative 07/10/2018 [facility] species 8:38 PM CDT [facility] Cyclospora Negative Negative 07/10/2018 [facility] cayetanensis 8:38 PM CDT [facility] Entamoeba Negative Negative 07/10/2018 [facility] histolytica 8:38 PM CDT [facility] Giardia Negative Negative 07/10/2018 [facility] 8:38 PM CDT [facility] Adenovirus F40/41 Negative Negative 07/10/2018 [facility] 8:38 PM CDT [facility] Astrovirus Negative Negative 07/10/2018 [facility] 8:38 PM CDT [facility] Norovirus GI/GII Negative Negative 07/10/2018 [facility] 8:38 PM CDT [facility] Rotavirus Ag, F Negative Negative 07/10/2018 [facility] 8:38 PM CDT [facility] Sapovirus Negative Negative 07/10/2018 [facility] 8:38 PM CDT [facility] Comment: ----ADDITIONAL INFORMATION---- This assay is performed using the FDA-cl eared FilmArray GI Panel ([employer] Specimen Anatomical Collection Method Collection Time Receive d Time (Source) Location / / Volume Laterality Stool (Stool) 07/10/2018 6:00 AM 07/10/20 18 8:14 CDT PM CDT Emil Zurita M.D. LAB MICROBIOLOGY - GENERAL O RDERABLES Performing Organization Address City/State/ZIP Code Phon e Number [facility] [address] [place] [address] LAB Vitamin A and Vitamin E (07/02/2018 8:45 AM CDT) P athologist Signature Vitamin A 60.0 32.5 - 78.0 07/07/2018 [facility] mcg/dL 2:06 AM T [facility] Comment: ----ADDITIONAL INFORMATION---- This test was developed and its performa nce characteristics determined by [facility] in a manner consistent with CLIA requirements. This test has not been cleared or approved by the U.[place] d and Drug Administration. A-Tocopherol, Vitamin E 14.1 5.5 - 17.0 07/07/2018 9:25 PM [facility] mg/L T [facility] Comment: ----ADDITIONAL INFORMATION---- This test was developed and its performa nce characteristics determined by [facility] in a manner consistent with CLIA requirements. This test has not been cleared or approved by the U.[place]. [place] d and Drug Administration. Specimen Anatomical Collection Method Collection Time Receive d Time (Source) Location / / Volume Laterality Blood (Blood, 07/02/2018 8:45 AM 07/03/20 18 4:13 Venous) CDT PM CDT Narrative [facility] - 07/07/2018 9:25 PM CDT Specimen Information: Specimen ID: [id number] Specimen Type: Blood Specimen Collection Start Date: 07/02/20 ??8:45 AM Specimen Received Date: 07/03/2018 ??4:1 3 PM Specimen ID: [id number] Specimen Type: Blood Specimen Collection Start Date: 07/02/20 ??8:45 AM Specimen Received Date: 07/03/2018 ??4:3 2 PM Emil Zurita M.D. LAB BLOOD NON ADD-ON Performing Organization Address City/State/ZIP Code Phon e Number [facility] [address] [place], [place] [address] [place] [address] 25-Hydroxyvitamin D2 and D3 (07/02/2018 8:45 AM CDT) athologist Signature 25-Hydroxy D2 <4.0 ng/mL 07/03/2018 [facility] 10:08 PM CDT [facility] 25-Hydroxy D3 24 ng/mL 07/03/2018 [facility] 10:08 PM CDT [facility] 25-Hydroxy D 24 ng/mL 07/03/2018 [facility] Total 10:08 PM CDT [facility] Comment: ----REFERENCE VALUE---- 25-HYDROXY D TOTAL (D2+D3) Optimum level s in the healthy population are 20-50, patients with bone disease may benefit from higher levels within this r stan. ----ADDITIONAL INFORMATION---- This test was developed and its performa nce characteristics determined by [facility] in a manner consistent with CLIA [...] Address City/State/ZIP Code Phon e Number [facility] [address] [place], [place] [address] [facility] Creatinine with Estimated GFR (07/02/2018 8:45 AM CDT) athologist Signature Creatinine 1.01 0.74 - 07/02/2018 [facility] 1.35 mg/dL 11:10 AM CDT [facility] eGFR-Non 73 >=60 07/02/2018 [facility] Black/ mL/min/BSA 11:10 AM CDT [facility] [place] [facility] Comment: ----ADDITIONAL INFORMATION---- Estimated GFR calculated using the 2009 CKD_EPI creatinine equation. eGFR-Black/ 84 >=60 mL/min/BSA 2017 11:10 AM [facility] Comment: ----ADDITIONAL INFORMATION---- Estimated GFR calculated using the 2009 CKD_EPI creatinine equation. Specimen Anatomical Collection Method Collection Time Receive d Time (Source) Location / / Volume Laterality Blood (Blood, 07/02/2018 8:45 AM 07/02/20 Venous) CDT 10:37 AM CDT Emil Zurita M.D. LAB BLOOD ADD-ON Performing Organization Address City/State/ZIP Code Phon e Number [facility] [place] [address] [place] [address] LAB Sodium (07/02/2018 8:45 AM CDT) athologist Signature Sodium, S 141 135 - 145 07/02/2018 [facility] mmol/L 11:10 AM CDT [facility] Specimen Anatomical Collection Method Collection Time Receive d Time (Source) Location / / Volume Laterality Blood (Blood, 07/02/2018 8:45 AM 07/02/20 18 Venous) CDT 10:37 AM CDT Emil Zurita M.D. LAB BLOOD ADD-ON Performing Organization Address City/State/ZIP Code Phon e Number [facility] [address] [place] [address] LAB Potassium (07/02/2018 8:45 AM CDT) athologist [facility] Potassium, S 4.6 3.6 - 5.2 07/02/2018 [facility] mmol/L 11:10 AM CDT [facility] Specimen Anatomical Collection Method Collection Time Receive d Time (Source) Location / / Volume Laterality Blood (Blood, 07/02/2018 8:45 AM 07/02/20 18 Venous) CDT 10:37 AM CDT Emil Zurita M.D. LAB BLOOD ADD-ON Performing Organization Address City/State/ZIP Code Phon e Number [facility] [address] [place] [address] LAB CRP (C-Reactive Protein) (07/02/2018 8:45 AM CDT) [facility] C-Reactive <3.0 <=8.0 mg/L 07/02/2018 [facility] Protein (CRP), 4:22 PM CDT [facility] Specimen Anatomical Collection Method Collection Time Receive d Time (Source) Location / / Volume Laterality Blood (Blood, 07/02/2018 8:45 AM 07/02/20 18 4:03 Venous) CDT PM CDT Emil Zurita M.D. LAB BLOOD ADD-ON Performing Organization Address City/State/ZIP Code Phon e Number [facility] [address] [place] [address] [facility] LAB (ABNORMAL) Thyroid Function Tillman (07/02/2018 8:45 AM CDT) athologist [facility] TSH, Sensitive 5.1 (H) 0.3 - 4.2 07/02/2018 [facility] mIU/L 12:24 PM CDT [facility] Comment: Biotin has been identified by the capri enriquez as a potential interfering substance. ??Higher concentr ations of biotin may be found in multivitamins, hair/nail supple ments, and workout supplements. ??If the result does not [facility] clinical observations, repeat testing after patient refrains fr om the use of supplements for at least 12 hours. Specimen Anatomical Collection Method Collection Time Receive d Time (Source) Location / / Volume Laterality Blood (Blood, 07/02/2018 8:45 AM 07/02/20 18 Venous) CDT 10:37 AM CDT Emil Zurita M.D. LAB BLOOD ADD-ON Performing Organization Address City/[facility]/ZIP Code Phon e Number [facility] [address] [place] [address] LAB Celiac Disease Serology Tillman (07/02/2018 8:45 AM CDT) Component Value Ref Test Analysis Performed At [facility] gist Range Method Time Signature Immunoglobulin A 151 61 - 07/03/2018 [facility] (IgA), S 356 8:15 AM LABORATORIES - mg/dL CDT [facility] Celiac Disease Negative serology. Celiac di sease unlikely. However, approximately 10% of 07/03/2018 [facility] Interpretation patients with celiac disease are seronegative. Also, patients who are already 10:25 PM LABORATORIES - adhering to a gluten-free diet may be seronegative. If melissa iac disease is CDT [facility] clinically suspected, consider HLA-DQ typing. [place] Specimen Anatomical Collection Method Collection Time Receive d Time (Source) Location / / Volume Laterality Blood (Blood, 07/02/2018 8:45 AM 07/03/20 18 6:25 Venous) CDT AM CDT Emil Zurita M.D. LAB BLOOD ADD-ON Performing Organization Address City/State/ZIP Code Phon e Number [facility] LABORATORIES - [address] [place], [place] [address] [facility] documented in this encounter Visit Diagnoses Diagnosis Diarrhea - Primary Nausea Pancreatitis Chronic (HCC) Diarrhea documented in this encounter Additional Health Concerns Assessment Noted Time PHQ-9 Depression Total Score: 18 04/28/2018 11:27 AM C DT documented as of this encounter Care Teams Mixing Roll Operator Relationship Specialty Start Date End Date Ewa Alejandro M.D. PCP - General 03/13/17 01/09/[address] [address] documented as of this encounter
--- OUTSIDE RECORDS SUMMARY | 2022-05-28 06:54 | XMS_ITS | Encounter Summary ---
:1945 Author Organization [facility] Address [address] [place] [address] Care Team Providers Name Role Phone Ewa Alejandro M.D. Primary Care Provider [phone] Reason for Visit Reason Onset Date Comments Follow-up 05/21/2018 nausea, vomiting and diarrhea Encounter Details Date Type Department Care Team Description 05/21/[address] [facility], [facility], Follow-up (ambrose hoffman, Communication Community Internal M.D. vomiting and Medicine in [address] diarrhea) Teresa Bryson, [facility] [address] [address] [place] [phone] [address] (Fax) [phone] Social History Tobacco Use Types Packs/Day Years [...] do you attend scientology or Never 2021 baptist services? Do you [...] as of this encounter Care Teams Casino Beverage Server Relationship Specialty Start Date End Date Ewa Alejandro M.D. PCP - General 03/13/17 01/09/[address] [phone] documented as of this encounter
--- OUTSIDE RECORDS SUMMARY | 2022-05-28 06:54 | XMS_ITS | Encounter Summary ---
:1945 Author Organization [facility] Address [address] [place] [address] Care Team Providers Name Role Phone Ewa Alejandro M.D. Primary Care Provider [phone] Encounter Details Date Type Department Care Team Description 02/17/2018 Clinical Communication Department of Family Kirill Torres [facility], Ewa Barclay, Clinic, in [place] [address] [place] [phone] Social History Tobacco Use Types Packs/Day Years [...] IV fluids per verbal order faxed to [facility] due to labfindings Telephone Encounter - [...] on filedocumented in this encounter Care Teams Hospice Volunteer Coordinator Relationship Specialty Start Date End Date Ewa Alejandro M.D. PCP - General 03/13/17 01/09/20 [address] [place] [phone] documented as of this encounter
--- OUTSIDE RECORDS SUMMARY | 2022-05-28 06:54 | XMS_ITS | Encounter Summary ---
:[address] [facility] Address [address] [place] [address] Care Team Providers Name Role Phone Ewa Alejandro M.D. Primary Care Provider [phone] Encounter Details Date Type Department Care Team Description 05/08/2018 Clinical Communication Department of Family Kirill Torres [facility] in [facility] Ewa herrera[place], [place] [address] [facility] [address] [place] [phone] Social History Tobacco Use Types Packs/Day [...] do you attend sabianist or Never 2021 muslim services? Do you [...] Dr. Roy. Please call him back at [phone] documented in this encounter Plan of Treatment Not on filedocumented as of this encounter Visit Diagnoses Not on filedocumented in this encounter Additional Health Concerns Assessment Noted Time PHQ-9 Depression Total Score: 18 04/28/2018 11:27 AM C DT documented as of this encounter Care Teams School Social Worker Relationship Specialty Start Date End Date Ewa Alejandro M.D. PCP - General 03/13/17 01/09/[address] [phone] documented as of this encounter
--- OUTSIDE RECORDS SUMMARY | 2022-05-28 06:54 | XMS_ITS | Encounter Summary ---
:1945 Author Organization [facility] Address [address] [place] [address] Care Team Providers Name Role Phone Ewa Alejandro M.D. Primary Care Provider [phone] Encounter Details Date Type Department Care Team Description 02/20/2018 Clinical Communication Department of Anjana Boateng, Medicine, [place] [facility], [facility], [address] [place], [place] [address] [facility] [address] [place], [place] [phone] (Work) [phone] Social History Tobacco Use Types Packs/Day Years [...] AM CDT Prescription for lomotil faxed to [facility]. Unable to contact patient to make aware mailbox full documented in this encounter Plan of Treatment Not on filedocumented as of this encounter Visit Diagnoses Not on filedocumented in this encounter Care Teams Professional Development Manager Relationship Specialty Start Date End Date Ewa Alejandro M.D. PCP - General 03/13/17 01/09/[address] [phone] documented as of this encounter
--- OUTSIDE RECORDS SUMMARY | 2022-05-28 06:54 | XMS_ITS | Encounter Summary ---
:1945 Author Organization [facility] Address [address] [place] [address] Care Team Providers Name Role Phone Ewa Alejandro M.D. Primary Care Provider [phone] Encounter Details Date Type Department Care Team Description 05/08/2018 Orders Only Department of [facility] Santhosh Whatley (Primary Dx) Medicine, [place] Ewa stephen M.D. [facility], in [facility] [address] [place], [place] [address] [facility] [place] [place] [address] [place], [place] [phone] (Work) [phone] Social History Tobacco Use Types Packs/Day Years [...] do you attend taoist or Never 2021 gnosticist services? Do you [...] as of this encounter Care Teams Job Coaching Relationship Specialty Start Date End Date Ewa Alejandro M.D. PCP - General 03/13/17 01/09/20 [address] [place] [phone] documented as of this encounter
--- OUTSIDE RECORDS SUMMARY | 2022-05-28 06:54 | XMS_ITS | Encounter Summary ---
:1945 Author Organization [facility] Address [address] [place] [address] Care Team Providers Name Role Phone Ewa Alejandro M.D. Primary Care Provider [phone] Reason for Visit Reason Comments Diarrhea complains of vomitting, diar jing, fatigue, and headaches since September - would like a 2nd opinion - h as been seeing Dr. Lawson for this Appointment Request (Routine) - Closed Specialty Diagnoses / Procedures Referred By Contact Refer red To Contact Community Internal Medicine Referral ID Status Reason Start Date Expiration Date Visits Requ ested Visits Authorized [id number] Closed 05/11/2018 05/11/2019 1 1 Encounter Details Date Type Department Care Team Description 05/12/2018 Office Visit Department of Azeem Martino M.D . Nausea And Vomiting (Primary Dx); Community Internal [address], [place]; Medicine in [place] [address] Fatigue; [place], [place], [place] Headache; [address] [address] Pancreatitis Chronic Recurrent (HCC); [facility] [place] Reaction Drug Adverse Initial; [id number] Diabetes Mellitus Type 2 Wit h Diabetic Neuropathy (HCC); [phone] Hypertension Es sential Primary; Stroke (HCC) Social [...] is managed by [place] clinical pharmacist [place]. He has been taking Metformin since 1990. He thinks he was started on Victoza around this year. He checks his blood sugar 3-7 times a day. His mood and anxiety have improved since taking Lexapro, which was started two weeks ago. He feels that jail has had an affect on his anxiety [...] INSERTION INTRAOCULAR LENS Left 04/2008 At the [place] ??? LASER OF PROSTATE W/ GREEN LIGHT PVP 08/28/2016 Greenlight photoselective vaporization of the prostate and cystoscopy with bladder biopsy and fulguration of a 2cm area; 08/28/[address] Prasanna Bernal at the [facility]. ??? TONSILLECTOMY ??? VASECTOMY SOCIAL HISTORY Social [...] should discuss with his clinical pharmacist at [place] regardingmedication change. He will continue current doses of Metformin, NovoLog, and Lantus. Patient was advised to continue current [employer] diet and regular exercise. Self-management [...] his PCP, physicians and clinical pharmacist at [place]. Return to the clinic as needed. Administrative Billing 40 minutes of this 45 minute visit was spent in face to face counseling and coordination of care. This document serves as a record of services personally performed by Dr. Azeem Martino. It was created on their behalf by Chad Varner, a trained medical record technician. The creation of this record is [...] as of this encounter Care Teams Side Seam Envelope Machine Operator Relationship Specialty Start Date End Date Ewa Alejandro M.D. PCP - General 03/13/17 01/09/[address] [place] [phone] documented as of this encounter
--- OUTSIDE RECORDS SUMMARY | 2022-05-28 06:54 | XMS_ITS | Encounter Summary ---
:1945 Author Organization [facility] Address [address] [place] [address] Care Team Providers Name Role Phone Ewa Alejandro M.D. Primary Care Provider Encounter Details Date Type Department Care Team Description 02/20/2018 Orders Only Department of Family Mata , [facility] [address] [place] [phone] (Wo rk) Social History Tobacco Use Types [...] do you attend congregation or Never 2021 spiritism services? Do you [...] on filedocumented in this encounter Care Teams Occupational Health Nurse Supervisor Relationship Specialty Start Date End Date Ewa Alejandro M.D. PCP - General 03/13/17 01/09/20 [address] [place] [phone] documented as of this encounter
--- OUTSIDE RECORDS SUMMARY | 2022-05-28 06:54 | XMS_ITS | Encounter Summary ---
:1945 Author Organization [facility] Address [address] [place] [address] Care Team Providers Name Role Phone Ewa Alejandro M.D. Primary Care Provider Encounter Details Date Type Department Care Team Description 02/17/2018 Hospital Encounter Department of Laboratory Kirill Nicholas Medicine in [place] Judy, M .D. [place] [address] [place] [phone] Social History Tobacco Use Types Packs/Day Years [...] do you attend scientology or Never 2021 hindu services? Do you [...] tablet by 0 09/2015 tablet mouth daily. blood sugar diagnostic Reports [...] mg mouth daily. tablet lovastatin (MEVACOR) 40 mg Take 2 tablets [...] on filedocumented in this encounter Care Teams Automatic Silk Screen Printer Relationship Specialty Start Date End Date Ewa Alejandro M.D. PCP - General 03/13/17 01/09/[address] [phone] documented as of this encounter
--- OUTSIDE RECORDS SUMMARY | 2022-05-28 06:54 | XMS_ITS | Encounter Summary ---
:1945 Author Organization [facility] Address [address] [place] [address] Care Team Providers Name Role Phone Ewa Alejandro M.D. Primary Care Provider [phone] Encounter Details Date Type Department Care Team Description 04/28/2018 Hospital Encounter Department of Lea Hall es Mellitus Laboratory Medicine Ewa brunson, Type 2 (HCC) in [place] [address] [place] [phone] Social History Tobacco Use Types Packs/Day [...] 0 0.5 ML (INSULIN SYRINGE MISC) insulin glargine Inject 20 Units under 0 02/01/20 15 05/06/2020 (LANTUS) 100 unit/mL the skin at bedtime. injection losartan (for_COZAAR) Take 50 mg by mouth [...] injection times a day before meals. insulin NPH [...] for anxiety for up to 15 days. lovastatin (MEVACOR) 40 Take 2 tablets by [...] Microalbumin, Random, Urine (04/28/2018 8:49 AM CDT) [facility] Method Time Signature Microalbumin 613.6 mg/L 04/28/2018 [facility] 2:[address] [facility] Creatinine 133 mg/dL 04/28/2018 [facility] 2:[address] [facility] Albumin/Creatinin 461 (H) <17 mg/g 04/28/2018 [facility] e Ratio 2:[address] [facility] Specimen Anatomical Collection Method Collection Time Receive d Time (Source) Location / / Volume Laterality Urine (Urine, 04/28/2018 8:49 AM 04/28/20 18 Clean Catch) CDT 10:59 AM CDT Ewa Alejandro M.D. LAB URINE ORDERABLES Performing Organization Address City/State/ZIP Code Phon e Number [facility] [address] [place] [address] LAB documented in this encounter Visit Diagnoses Diagnosis Diabetes Mellitus Type 2 (HCC) documented in this encounter Additional Health Concerns Assessment Noted Time PHQ-9 Depression Total Score: 18 04/28/2018 11:27 AM C DT documented as of this encounter Care Teams Ip Counsel Relationship Specialty Start Date End Date Ewa Alejandro M.D. PCP - General 03/13/17 01/09/[address] [address] documented as of this encounter
--- OUTSIDE RECORDS SUMMARY | 2022-05-28 06:54 | XMS_ITS | Encounter Summary ---
:1945 Author Organization [facility] Address [address] [place] [address] Care Team Providers Name Role Phone Ewa Alejandro M.D. Primary Care Provider Encounter Details Date Type Department Care Team Description 02/17/2018 Hospital Encounter Department of Lea french Renal Laboratory Medicine Ewa brunson in [place], M.D. [place] [address] [place] [phone] Social History Tobacco Use Types Packs/Day [...] do you attend sabianism or Never 2021 yazdanism services? Do you [...] (02/17/2018 10:41 AM CDT) [facility] Signature Potassium, S 5.0 3.6 - 5.2 02/17/2018 [facility] mmol/L 1:45 PM [facility] Sodium, S 134 (L) 135 - 145 02/17/2018 [facility] mmol/L 1:45 PM [facility] Chloride, S 98 98 - 107 02/17/2018 [facility] mmol/L 1:45 PM [facility] Bicarbonate, S 21 (L) 22 - 29 02/17/2018 [facility] mmol/L 1:45 PM [facility] Anion Gap 15 7 - 15 02/17/2018 [facility] 1:45 PM [facility] BUN (Blood Urea 69 (H) 8 - 24 02/17/2018 [facility] Nitrogen), S mg/dL 1:45 PM [facility] Creatinine 2.22 (H) 0.74 - 02/17/2018 [facility] 1.35 mg/dL 1:45 PM [facility] eGFR-Non 28 (L) >=60 02/17/2018 [facility] Black/ mL/min/BSA 1:45 PM [facility] [place] [facility] Comment: ----ADDITIONAL INFORMATION---- Estimated GFR calculated using the 2009 CKD_EPI creatinine equation. eGFR-Black/ 33 (L) >=60 mL/min/BSA 02/17/2018 1:45 [facility] [place] [facility] [place] [facility] Comment: ----ADDITIONAL INFORMATION---- Estimated GFR calculated using the 2009 CKD_EPI creatinine equation. Calcium, Total, S 9.3 8.8 - 10.2 mg/dL 02/17/2018 1:45 PM [facility] 51[facility] Glucose, S 336 (H) 70 - 140 mg/dL 02/17/2018 1:45 PM [facility] Specimen Anatomical Collection Method Collection Time Receive d Time (Source) Location / / Volume Laterality Blood (Blood, 02/17/2018 10:41 02/17/2018 Venous) AM CDT 12:54 PM CDT Ewa Alejandro M.D. LAB BLOOD ADD-ON Performing Organization Address City/State/ZIP Code Phon e Number [facility] [address] [place] [address] LAB documented in this encounter Visit Diagnoses Diagnosis Insufficiency Renal documented in this encounter Care Teams Nursing Assistants Teacher Relationship Specialty Start Date End Date Ewa Alejandro M.D. PCP - General 03/13/17 01/09/202199 [place] [phone] documented as of this encounter
--- OUTSIDE RECORDS SUMMARY | 2022-05-28 06:54 | XMS_ITS | Encounter Summary ---
:1945 Author Organization [facility] Address [address] [place] [address] Care Team Providers Name Role Phone Ewa Alejandro M.D. Primary Care Provider [phone] Reason for Visit Reason Comments Follow-up final episode of diarrhea oc cured on 02/22/2018 with patient now having upper abdominal discomfort Appointment Request (Routine) - Closed Specialty Diagnoses / Procedures Referred By Contact Refer red To Contact Family Medicine Referral ID Status Reason Start Date Expiration Date Visits Requ ested Visits Authorized [id number] Closed 02/18/2018 02/18/2019 1 1 Encounter Details Date Type Department Care Team Description 02/25/2018 Office Visit Department of Family Alicia ch (Primary Dx); Medicine, Ewa Turner, Joseffi ciency Renal; Clinic, in [place] Diabetes Mellitus Type 2 (HCC) [place] [address] [place] [phone] Social History Tobacco Use Types Packs/Day Years [...] you attend latter day or Never 2021 gnosticist services? Do you belong to any clubs or No 10/09/2021 organizations such as latter day groups, unions, fraClarisonic or athletic groups, or school groups? How [...] at 2.22 and he subsequently went to [facility] for IV fluids. Labs were rechecked again [...] at the [facility]. ??? TONSILLECTOMY N/A PREVENTIVE SERVICES Social [...] DIAGNOSTICS CT abdomen/pelvis obtained on 02/16/2018 at [facility]: FINDINGS: Abdomen: No liver lesions. Gallbladder is [...] behalf by Lulu Roldan, a trained medical sales representative. The creation of this record is [...] (HCC) documented in this encounter Care Teams Deliverer Merchandise Relationship Specialty Start Date End Date Ewa Alejandro M.D. PCP - General 03/13/17 01/09/20 [address] [place] [phone] documented as of this encounter
--- OUTSIDE RECORDS SUMMARY | 2022-05-28 06:54 | XMS_ITS | Encounter Summary ---
:1945 Author Organization [facility] Address [address] [place] [address] Care Team Providers Name Role Phone Ewa Alejandro M.D. Primary Care Provider [phone] Encounter Details Date Type Department Care Team Description 06/22/2018 Clinical Communication Department of Anjana Boateng, Medicine, [facility], [facility], [address] [place], [place] [address] [facility] [phone] [place], [place] [phone] (Work) [phone] Social History Tobacco Use Types Packs/Day Years [...] do you attend shinto or Never 2021 nondenominational services? Do you [...] 06/22/2018 2:02 PM CDT Patient seen at [facility] for medication review related to recent hospitalization for chronic diarrhea with nausea and vomiting. Per pharmacist recommendation please change patients medication metforman 1000 mg bid to metforman ER 1000 mg bid and fax new prescription for 90 day supply to [facility] is recommendation is approved. Patient also requesting to be updated on prescription status documented in this encounter Plan of Treatment Not on filedocumented as of this encounter Visit Diagnoses Not on filedocumented in this encounter Additional Health Concerns Assessment Noted Time PHQ-9 Depression Total Score: 18 04/28/2018 11:27 AM C DT documented as of this encounter Care Teams Armature Tester Relationship Specialty Start Date End Date Ewa Alejandro M.D. PCP - General 03/13/17 01/09/20 [address], [place] [phone] documented as of this encounter
--- OUTSIDE RECORDS SUMMARY | 2022-05-28 06:54 | XMS_ITS | Encounter Summary ---
:1945 Author Organization [facility] Address [address] [place] [address] Care Team Providers Name Role Phone Ewa Alejandro M.D. Primary Care Provider Encounter Details Date Type Department Care Team Description 04/28/2018 Hospital Encounter Department of Lea Hall es Mellitus Laboratory Medicine Ewa brunson, Type 2 (HCC) in [place] [address] [place] [phone] Social History Tobacco Use Types Packs/Day [...] do you attend taoism or Never 2021 gnosticist services? Do you [...] by mouth 0 04/29/2016 mg tablet daily. blood sugar diagnostic Reports checking 4-5 [...] 0 11/15/2008 (PRINIVIL,ZESTRIL) 10 daily. mg tablet lovastatin (MEVACOR) 40 Take 2 tablets [...] Potassium, S 4.7 3.6 - 5.2 04/28/2018 [facility] mmol/L 12:03 PM [facility] [place] [facility] Sodium, S 138 135 - 145 04/28/2018 [facility] mmol/L 12:03 PM [facility] [place] Chloride, S 104 98 - 107 04/28/2018 [facility] mmol/L 12:03 PM [facility] [place] [facility] Bicarbonate, S 23 22 - 29 04/28/2018 [facility] mmol/L 12:03 PM T [facility] [place] [facility] Anion Gap 11 7 - 15 04/28/2018 [facility] 12:03 PM T [facility] [place] [facility] BUN (Blood Urea 34 (H) 8 - 24 04/28/2018 [facility] Nitrogen), S mg/dL 12:03 PM T [facility] Creatinine 1.31 0.74 - 04/28/2018 [facility] 1.35 mg/dL 12:03 PM T [facility] eGFR-Non 53 (L) >=60 04/28/2018 [facility] Black/ mL/min/BSA 12:03 PM T [employer] [facility] [place] [facility] Comment: ----ADDITIONAL INFORMATION---- Estimated GFR calculated using the 2009 CKD_EPI creatinine equation. eGFR-Black/ 62 >=60 mL/min/BSA 2017 12:03 PM [facility] LAB Comment: ----ADDITIONAL INFORMATION---- Estimated GFR calculated using the 2009 CKD_EPI creatinine equation. Calcium, Total, S 8.7 (L) 8.8 - 10.2 mg/dL 04/28/2018 1 2:03 PM [facility] Glucose, S 220 (H) 70 - 140 mg/dL 04/28/2018 12:03 PM [facility] Specimen Anatomical Collection Method Collection Time Receive d Time (Source) Location / / Volume Laterality Blood (Blood, 04/28/2018 8:48 AM 04/28/20 18 Venous) CDT 10:59 AM CDT Ewa Alejandro M.D. LAB BLOOD ADD-ON Performing Organization Address City/State/ZIP Code Phon e Number [facility] [address] [place] [address] LAB (ABNORMAL) Hemoglobin A1c (04/28/2018 8:48 AM CDT) P athologist Signature Hemoglobin A1c, 8.9 (H) 4.2 - 5.6 04/28/2018 [facility] B % 1:25 PM CDT [facility] LAB Comment: Hemoglobin A1c values greater [...] e Number [facility] [place] [address] [place] [address] LAB AST (Aspartate Aminotransferase) (04/28/2018 8:48 AM CDT) [facility] gist Method Time Signature Aspartate 17 8 - 48 04/28/2018 [facility] Aminotransferase U/L 12:03 PM CDT [facility] LAB Specimen Anatomical Collection Method Collection Time Receive d Time (Source) Location / / Volume Laterality Blood (Blood, 04/28/2018 8:48 AM 04/28/20 18 Venous) CDT 10:59 AM CDT Ewa Alejandro M.D. LAB BLOOD ADD-ON Performing Organization Address City/State/ZIP Code Phon e Number [facility] [place] [address] [place] [address] LAB (ABNORMAL) Lipid Panel (04/28/2018 8:48 AM CDT) P athologist Signature Cholesterol, 193 mg/dL 04/28/2018 [facility] Total 12:03 PM CDT [facility] LAB Comment: ----REFERENCE VALUE---- Desirable: < 200 Borderline high: 200 - 239 High: > or = 240 Triglycerides 402 (H) mg/dL 04/28/2018 2:48 PM CDT [facility] [place] [facility] Comment: ----REFERENCE VALUE---- Normal: <150 Borderline high: 150-199 High: 200-499 Very high: > or =500 Cholesterol, HDL, S 33 (L) >=40 mg/dL 04/28/2018 2:48 PM CDT [facility] LAB Calculated LDL CANCELED mg/dL 04/28/2018 2:48 PM CDT [facility] [place] [facility] Comment: Triglyceride >400 mg/dL. Calculated LDL cholesterol is not valid. Non-HDL cholesterol may be used f or cardiovascular disease risk assessment when triglycerid es are >400 mg/dL. Result canceled by the ancillary Cholesterol, Non-HDL, 160 (H) mg/dL 04/28/2018 2:48 PM CDT [facility] AMANDA GAMBOA Comment: ----REFERENCE VALUE---- Desirable: <130 Above Desirable: 130-159 Borderline high: 160-189 High: 190-219 Very high: > or =220 Specimen Anatomical Collection Method Collection Time Receive d Time (Source) Location / / Volume Laterality Blood (Blood, 04/28/2018 8:48 AM 04/28/20 18 Venous) CDT 10:59 AM CDT Ewa Alejandro M.D. LAB BLOOD ADD-ON Performing Organization Address City/State/ZIP Code Phon e Number [facility] [address] [place] [address] LAB documented in this encounter Visit Diagnoses Diagnosis Diabetes Mellitus Type 2 (HCC) documented in this encounter Additional Health Concerns Assessment Noted Time PHQ-9 Depression Total Score: 18 04/28/2018 11:27 AM C DT documented as of this encounter Care Teams Car Repair Supervisor Relationship Specialty Start Date End Date Ewa Alejandro M.D. PCP - General 03/13/17 01/09/[address] [phone] documented as of this encounter
--- OUTSIDE RECORDS SUMMARY | 2022-05-28 06:54 | XMS_ITS | Encounter Summary ---
:1945 Author Organization [facility] Address [address] [place] [address] Care Team Providers Name Role Phone Ewa Alejandro M.D. Primary Care Provider [phone] Encounter Details Date Type Department Care Team Description 02/19/2018 Hospital Encounter Department of Laboratory Sunny Martinez, Dehydration Medicine in [place] [address] [facility] [address] [place], [place] [phone] (Wo rk) Social History Tobacco Use Types [...] do you attend orthodox or Never 2021 denominational services? Do [...] (02/19/2018 9:34 AM CDT) Analysis Performed At [facility] Time Signature Potassium, S 5.0 3.6 - 5.2 02/19/2018 [facility] mmol/L 3:28 PM [facility] Sodium, S 143 135 - 145 02/19/2018 [facility] mmol/L 3:28 PM [facility] Chloride, S 105 98 - 107 02/19/2018 [facility] mmol/L 3:28 PM [facility] Bicarbonate, S 22 22 - 29 02/19/2018 [facility] mmol/L 1:55 PM [facility] Anion Gap 16 (H) 7 - 15 02/19/2018 [facility] 3:28 PM [facility] BUN (Blood Urea 43 (H) 8 - 24 02/19/2018 [facility] Nitrogen), S mg/dL 1:55 PM [facility] Creatinine 1.49 (H) 0.74 - 02/19/2018 [facility] 1.35 mg/dL 1:55 [facility] eGFR-Non 46 (L) >=60 02/19/2018 [facility] Black/ mL/min/BSA 1:55 [facility] Comment: ----ADDITIONAL INFORMATION---- Estimated GFR calculated using the 2009 CKD_EPI creatinine equation. eGFR-Black/ 53 (L) >=60 mL/min/BSA 02/19/2018 1:55 [facility] [employer] LAB Comment: ----ADDITIONAL INFORMATION---- Estimated GFR calculated using the 2009 CKD_EPI creatinine equation. Calcium, Total, S 9.3 8.8 - 10.2 mg/dL 02/19/2018 1:55 PM [facility] [place] [facility] Glucose, S 292 (H) 70 - 140 mg/dL 02/19/2018 1:55 PM [facility] [place] [facility] Specimen Anatomical Collection Method Collection Time Receive d Time (Source) Location / / Volume Laterality Blood (Blood, 02/19/2018 9:34 AM 02/20/20 18 Venous) CDT 11:18 AM CDT Sunny Martinez P.A.-C. LAB BLOOD ADD-ON Performing Organization Address City/State/ZIP Code Phon e Number [facility] [address] [address] [place] [facility] [address] LAB documented in this encounter Visit Diagnoses Diagnosis Dehydration documented in this encounter Care Teams Marketing Producer Relationship Specialty Start Date End Date Ewa Alejandro M.D. PCP - General 03/13/17 01/09/202199 [address] [phone] documented as of this encounter
--- OUTSIDE RECORDS SUMMARY | 2022-05-28 06:54 | XMS_ITS | Encounter Summary ---
:1945 Author Organization [facility] Address [address] [place] [address] Care Team Providers Name Role Phone Ewa Alejandro M.D. Primary Care Provider [phone] Encounter Details Date Type Department Care Team Description 04/21/2018 Nurse Triage Department of [facility], Alysha Duque Medicine, [facility], R.N. in [place], [place] [address] [address] Social History Tobacco Use Types Packs/Day Years [...] on filedocumented in this encounter Care Teams Taping Machine Operator Relationship Specialty Start Date End Date Ewa Alejandro M.D. PCP - General 03/13/17 01/09/[address] [phone] documented as of this encounter
--- OUTSIDE RECORDS SUMMARY | 2022-05-28 06:54 | XMS_ITS | Encounter Summary ---
:1945 Author Organization [facility] Address [address] [place] [address] Care Team Providers Name Role Phone Ewa Alejandro M.D. Primary Care Provider [phone] Encounter Details Date Type Department Care Team Description 05/12/2018 Clinical Communication Department of Family Kirill Torres [facility], Ewa Barclay, Clinic, in [place] [address] [place] [phone] Social History Tobacco Use Types Packs/Day Years [...] do you attend episcopalian or Never 2021 pentecostalism services? Do you [...] as of this encounter Care Teams Insurance Account Specialist Relationship Specialty Start Date End Date Ewa Alejandro M.D. PCP - General 03/13/17 01/09/20 [address], [place] [phone] documented as of this encounter
--- OUTSIDE RECORDS SUMMARY | 2022-05-28 06:55 | XMS_ITS | Encounter Summary ---
:1945 Author Organization [facility] Address [address] [place] [address] Care Team Providers Name Role Phone Ewa Alejandro M.D. Primary Care Provider [phone] Encounter Details Date Type Department Care Team Description 07/04/2017 Hospital Encounter HX [facility] Ewa Grier M.D. [address] [place], [place] [phone] (Wo rk) Social History [...] do you attend evangelical or Never 2021 yarsanism services? Do you [...] tablet by 0 09/2015 tablet mouth daily. insulin glargine (LANTUS) Inject 20 Units 0 01/3105/06/2020 100 unit/mL injection under the skin at bedtime. losartan (for_COZAAR) 100 mg Take 50 mg by 0 09/2905/06/2020 tablet mouth daily. albuterol sulfate 90 Inhale [...] 15 MMOLL POWERCHART HXeGFR (MDRD) >60 >=60 [id number] POWERCHART eGFR Black/ >60 >=60 [id number] POWERCHART Specimen (Source) Anatomical Collection Method Collection Time Re ceived Time Location / / Volume Laterality Blood 07/04/2017 8:13 AM CDT Ewa Aljeandro M.D. LAB BLOOD ADD-ON Performing Organization Address City/State/ZIP Code Phon e Number POWERCHART POWERCHART NA documented in this encounter Visit Diagnoses Not on filedocumented in this encounter Additional Health Concerns Assessment Noted Time PHQ-9 Depression Total Score: 6 01/31/2015 12:28 PM CD T documented as of this encounter Care Teams Campus Chaplain Relationship Specialty Start Date End Date Ewa Alejandro M.D. PCP - General 03/13/17 01/09/[address] [place] [phone] documented as of this encounter
--- OUTSIDE RECORDS SUMMARY | 2022-05-28 06:55 | XMS_ITS | Encounter Summary ---
:1945 Author Organization [facility] Address [address] [place] [address] Care Team Providers Name Role Phone Unavailable Primary Care Provider Unavailable Encounter Details Date Type Department Care Team Description 03/03/2017 Hospital Encounter HX [facility] FAMILYPRA Ewa Forbes M.D. [address] [place], [place] [phone] (Wo rk) Social History [...] do you attend latter-day or Never 2021 jew services? Do you [...] Weiss M.D. - 03/03/2017 8:02 AM CDT [id number] CHIEF COMPLAINT/ REASON FOR VISIT Review recent [...] On 11/14/2015 LDL was 113, HDL 37, and total cholesterol 214. Jonnathan has been prescribed Atorvastatin 40 mg and Gemfibrozil 600 mg twice daily. However, [facility] and has not always been given Atorvastatin as prescribed and has been given other statins in place of Atorvastatin. He is currently taking Lovastatin 40 mg in addition to Gemfibrozil 600 mg twice daily. Per the EMR Jonnathan had an A1C checked at the [facility] on 11/08/2016 which showed a result of 9.1%. We checked an A1C here at the clinic on 02/27/2017 with a result of 8.4%. He reports that he had an A1C checked a couple weeks ago at the [facility] and his A1C was 9.4%. After that result was reviewed by his doctor at the [facility] he was placed on a rigid diet in order to get better control of his diabetes. Jonnathan has plans tomeet with a pharmacist and research biostatistician monthly at the [facility] in order to keep him on track. [...] 08/28/[address] Prasanna Bernal at the [facility]. PREVENTIVE SERVICES Tobacco use: none, former smoker [...] He is working with providers at the [facility] to get this under better control. He should continue with his current regimen at this time. Patient was encouraged to continue working with lifestyle modifications. 2. Hypercholesterolemia. I am concerned that his triglycerides are elevated despite being on statin therapy and Gemfibrozil. As the [facility] is providing him with Lovastatin rather than [...] their behalf by Lulu Roldan, a trained anesthesiology medical doctor. The creation of this record is based on the scribe's personal observations and the provider's statements to them. This document has been christie cked and approved by the attending provider. Ewa Hinton M.D./livia Electronically Signed By: EWA WEISS MD On: 03/17/2017 12:36 PM Source: [facility] MHSDOLBEYNONRADSYS Document Id: [id number] documented in this encounter Miscellaneous Notes Miscellaneous [...] HAMILTON LPN - 03/03/2017 8:16 CDT [facility] Document Id: [id number] CDT!8 Miscellaneous - Marti Hamilton L.P.N. - 03/03/2017 8:14 AM CDT Adult Manager Analytical Intake/History Adult Manager Analytical Intake/History Entered On: 03/03/2017 8:16 CDT Performed [...] Preferred Communication Mode : Verbal Languages : Tajik Is Patient Female and 13-50 no hysterectomy [...] Tobacco Last Use/Year : 1982 [facility] HAMILTON [facility] - 03/03/2017 8:14 CDT Caffeine Use Grid Caffeine Use : Current Type : Chocolate, Coffee, Soft drinks Frequency : Daily MARTI HAMILTON [facility] - 03/03/2017 8:14 CDT Recreational Drug Use Grid Drug Use : None MARTI HAMILTON [facility] - 03/03/2017 8:14 CDT Source: [employer] Document Id: [id number] CDT!41 documented in this encounter Plan of Treatment Not on filedocumented as of this encounter Visit Diagnoses Not on filedocumented in this encounter Additional Health Concerns Assessment Noted Time PHQ-9 Depression Total Score: 6 01/31/2015 12:28 PM CD T documented as of this encounter
--- OUTSIDE RECORDS SUMMARY | 2022-05-28 06:55 | XMS_ITS | Encounter Summary ---
:1945 Author Organization [facility] Address [address] [place] [address] Care Team Providers Name Role Phone Ewa Alejandro M.D. Primary Care Provider [phone] Reason for Referral MRI/CAT/PET Scan (Routine) - Closed Specialty Diagnoses / Procedures Referred By Contact Refer red To Contact Radiology Diagnoses Dizziness ARMAAN Alejandro SE Region Procedures MR Brain without and with IV Contrast [place] Mcneil [address] [place] [phone] Referral ID Status Reason Start Date Expiration Date Visits Requ ested Visits Authorized [id number] Closed 09/12/2017 03/11/2018 1 1 H TOOL MAKER Reason for Visit MRI/CAT/PET Scan (Routine) - Closed Specialty Diagnoses / Procedures Referred By Contact Refer anna To Contact Radiology Diagnoses Dizziness And Giddiness ARMAAN Alejandro SE Region Procedures MR Brain Angiogram without IV Contrast MR Brain Angiogram without and with IV Contrast SD MRA HEAD WO/W CNTRST HC MRA HEAD WO/W CNTRST SD MRA HEAD WO/W CNTRST SD MRA HEAD WO CNTRST HC MRA HEAD WO CNTRST SD MRA HEAD WO CNTRST Pat[place] Mcneil [address] [place] [phone] Referral ID Status Reason Start Date Expiration Date Visits Requ ested Visits Authorized [id number] Closed 09/10/2017 03/09/2018 1 1 Encounter Details Date Type Department Care Team Description 09/17/2017 Hospital Encounter Department of [facility] Dizzin ess And Giddiness; Radiology in [place], Ewa, Dizziness [place] [address] [facility] [address] [place], [place] [phone] Social History Tobacco Use Types Packs/Day [...] do you attend restoration or Never 2021 jewish services? Do you [...] 0 0 10/13/2013 05/06/2020 mg tablet daily. levoFLOXacin Take 1 tablet (500 10 tablet [...] let him know your thoughts. Thank you. H TOOL MAKER documented in this encounter Plan of Treatment Not on filedocumented as of this encounter Procedures Procedure Name Priority Date/Time Associated Comments Diagnosis MR BRAIN WITHOUT RAD - Routine 09/17/2017 10:20 Dizziness Result s for this AND WITH IV (most inpatients AM BENCH TOOL MAKER procedure a re in CONTRAST and all the results outpatients) section. MR BRAIN RAD - Routine 09/17/2017 10:20 Dizziness And Results f or this ANGIOGRAM WITHOUT (most inpatients AM BENCH TOOL MAKER Giddiness proced ure are in IV CONTRAST and all the results outpatients) section. documented in this encounter Results MR Brain Angiogram without IV Contrast (09/17/2017 10:20 AM BENCH TOOL MAKER) Anatomical Region Laterality Modality Head, Brain N/A Magnetic Resonance Specimen (Source) Anatomical Collection Method Collection Time Re ceived Time Location / / Volume Laterality 09/17/2017 11:01 AM BENCH TOOL MAKER Impressions 09/17/2017 11:38 AM BENCH TOOL MAKER IMPRESSION: 1. 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 2. Normal variant head MRA. 3. Paranasal sinus disease appears acute . Narrative 09/17/2017 11:38 AM BENCH TOOL MAKER EXAM: MR BRAIN WITHOUT AND WITH IV [...] disease appears acute . Ewa Alejandro M.D. [facility] MRI PROCEDURES MR Brain without and with IV Contrast (09/17/2017 10:20 AM BENCH TOOL MAKER) Anatomical Region Laterality Modality Head, Brain N/A Magnetic Resonance Specimen (Source) Anatomical Collection Method Collection Time Re ceived Time Location / / Volume Laterality 09/17/2017 11:01 AM BENCH TOOL MAKER Impressions 09/17/2017 11:38 AM BENCH TOOL MAKER IMPRESSION: 1. 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 2. Normal variant head MRA. 3. Paranasal sinus disease appears acute . Narrative 09/17/2017 11:38 AM BENCH TOOL MAKER EXAM: MR BRAIN WITHOUT AND WITH IV [...] injection 1-14 mL Given 09/17/2017 11:00 AM BENCH TOOL MAKER 11 mL (for_GADAVIST) 1-14 mL, intravenous, Once in imaging, contrast, Starting on Fri09/17/17 at 1020, For 1 dose, Imaging Protocol Orders, Dose per Radiant Medication Guidelines documented in this encounter Care Teams Account Officer Relationship Specialty Start Date End Date Ewa Alejandro M.D. PCP - General 03/13/17 01/09/[address], [place] [address] documented as of this encounter
--- OUTSIDE RECORDS SUMMARY | 2022-05-28 06:55 | XMS_ITS | Encounter Summary ---
:1945 Author Organization [facility] Address [address] [place] [address] Care Team Providers Name Role Phone Ewa Alejandro M.D. Primary Care Provider [phone] Encounter Details Date Type Department Care Team Description 05/08/2017 Hospital Encounter HX [facility] UROLOGY Ailyn Bernal M.D. [address] [place] [phone] (Wo rk) Social History Tobacco [...] do you attend congregation or Never 2021 baptist services? Do you [...] BERNAL MD On: 05/08/2017 09:37 AM Source: [facility] [employer] Document Id: [id number] documented in this encounter Miscellaneous Notes Miscellaneous [...] FUROC Result Sum-[place] Negative 05/08/2017 09:20 FUROC Result-[place] See Comment 05/08/2017 09:20 FUROC Interp-[place] See Comment 05/08/2017 09:20 FUROC Reason for Ref-[place] See Comment 05/08/2017 09:20 FUROC Spec-[place] Varies 05/08/2017 09:20 FUROC Source-[place] Urine, NOS 05/08/2017 09:20 FUROC Released By-[place] See Comment Source: [facility] [employer] Document Id: [id number] Miscellaneous - Raegan Toney APRN, RMauroN. - [...] Result Name 05/09/2017 11:58 Document - DOC Non-UNDER TRIMMER Cytology Source: [facility] [employer] Document Id: [id number] Miscellaneous - Yu Thomas, L.P.N. - 05/08/2017 9:15 AM CDT Adult Kennel Worker Intake/History Adult Kennel Worker Intake/History Entered On: 05/08/2017 9:19 CDT Performed [...] Pressure Cuff Size : Regular [facility] - 05/08/2017 9:15 CDT General Info Information Given By : Patient Preferred Communication Mode : Verbal Languages : Chinese Is Patient Female and 13-50 no hysterectomy : No [facility] - 05/08/2017 9:15 CDT Subjective Pain Symptoms : No [facility] - 05/08/2017 9:15 CDT Dependent Habits Exposure to Tobacco Smoke : Other: quit in 1982 Smoking Status : Former smoker Tobacco 2A : Yes Tobacco Use/Currently Using : No Tobacco Use/Last 30 Days : No Tobacco Use/Last 12 months : No Tobacco Last Use/Year : 1982 Alcohol Use : No [facility] 05/08/2017 9:15 CDT Caffeine Use Grid Caffeine Use : Current Type : Chocolate, Coffee, Soft drinks Frequency : Daily [facility] - 05/08/2017 9:15 CDT Recreational Drug Use Grid Drug Use : None [facility] 05/08/2017 9:15 CDT Source: [facility] Document Id: [id number] CDT!34 documented in this encounter Plan of Treatment Not on filedocumented as of this encounter Procedures Procedure Name Priority Date/Time Associated Comments Diagnosis UROVYSION (R) FOR Routine 05/08/2017 9:20 AM Resu lts for this BLADDER CANCER CDT procedure are in the results section. ZZPATHOLOGY NON-UNDER TRIMMER Routine 05/08/2017 8:52 AM Re sults for this CYTOLOGY CDT procedure are i n the results section. documented in this encounter Results UroVysion for Detection of Bladder Cancer, Urine (05/08/2017 9:20 AM CDT) [facility] Method Time Signature HXFUROC Result Negative POWERCHART [facility] HXFUROC See Comment POWERCHART Result-[place] Comment: RESULT: No evidence of urotheli al [...] This test has been modified from the [place] ufacturer's instructions. Its performance characteri stics were determined by [facility] in a manner co nsistent with CLIA requirements. This test has not been fernando ared or approved by the U.S. Food and Drug Administration. HX FUROC Reason for Ref See Comment GOLD CANDELARIO Comment: RESULT: Evaluate for urothelial carcinoma. HXFUROC Spec-[place] Varies POWERCHART HXFUROC Source-[place] Urine, NOS POWERCHAR T HXFUROC Released By-[place] See Comment CHRISTIN JEFFRIES Comment: RESULT: Dhiraj Hammer M.D. Test Performed by: [facility] - [address] [address] Specimen (Source) Anatomical Collection Method Collection Time Re ceived Time Location / / Volume Laterality Urine 05/08/2017 9:20 AM CDT Ailyn Bernal M.D. LAB GENETIC TESTING Performing Organization Address City/State/ZIP Code Phon e Number POWERCHART POWERCHART NA Zzpathology Non-Registered Nurse Maternity Cytology (05/08/2017 8:52 AM CDT) Specimen (Source) Anatomical Collection Method Collection Time Re ceived Time Location / / Volume Laterality 05/08/2017 8:52 AM CDT Narrative [facility] LAB - 05/09/2017 11:58 AM CDT [facility] in [facility] [address] [place], [place] ??[phone] Patient Name: BETH COSTA Patient ID #: [id number] Collected: 05/08/2017 Address: [facility]/Zip: [address] [place], [place] ??[id number] Received: Reported: 05/09/2017 05/09/2017 Soc. Sec. #: ?/Age/Sex 1945 (Age: 71) ??M Physician(s): Junaa BERNAL MD Copy To: ? [facility] ?? [id number] [address] [place] [address]. [facility], ??[place] ??[address] CYTOPATHOLOGY NON-UNDER TRIMMER REPORT FINAL CYTOLOGIC DIAGNOSIS Urine: NEGATIVE FOR [...] documented as of this encounter Care Teams Education Intern Relationship Specialty Start Date End Date Ewa Alejandro M.D. PCP - General 03/13/17 01/09/[address] [phone] documented as of this encounter
--- OUTSIDE RECORDS SUMMARY | 2022-05-28 06:55 | XMS_ITS | Encounter Summary ---
:1945 Author Organization [facility] Address [address] [place] [address] Care Team Providers Name Role Phone Ewa Alejandro M.D. Primary Care Provider Encounter Details Date Type Department Care Team Description 09/17/2017 Orders Only Department of Family Mata , [facility] [address] [place] [phone] (Wo rk) Social History Tobacco Use Types [...] do you attend evangelical or Never 2021 islam services? Do you [...] on filedocumented in this encounter Care Teams Forming Mill Operator Relationship Specialty Start Date End Date Ewa Alejandro M.D. PCP - General 03/13/17 01/09/20 [address] [place] [phone] documented as of this encounter
--- OUTSIDE RECORDS SUMMARY | 2022-05-28 06:55 | XMS_ITS | Encounter Summary ---
:1945 Author Organization [facility] Address [address] [place] [address] Care Team Providers Name Role Phone Ewa Alejandro M.D. Primary Care Provider [phone] Encounter Details Date Type Department Care Team Description 12/24/2017 Orders Only Department of Family Philip trimble Mellitus Type Medicine, Ewa Barclay, 2 (HCC) (Primary Dx) Clinic, in [place] [address] [place] [phone] Social History Tobacco Use Types Packs/Day Years [...] you attend jehovah's witness or Never 2021 mosque services? Do you [...] A1c, 9.1 (H) 4.2 - 5.6 01/22/2018 [facility] B % 11:25 AM CDT [facility] LAB Comment: Hemoglobin A1c values greater [...] Address City/State/ZIP Code Phon e Number [facility] [address] [place] [address] LAB documented in this encounter Visit Diagnoses Diagnosis Diabetes Mellitus Type 2 (HCC) - Primary documented in this encounter Care Teams Route Manager Relationship Specialty Start Date End Date Ewa Alejandro M.D. PCP - General 03/13/17 01/09/202199 [place] [phone] documented as of this encounter
--- OUTSIDE RECORDS SUMMARY | 2022-05-28 06:55 | XMS_ITS | Encounter Summary ---
:[address] [facility] Address [address] [place] [address] Care Team Providers Name Role Phone Ewa Alejandro M.D. Primary Care Provider [phone] Encounter Details Date Type Department Care Team Description 09/05/2017 Abstract Department of Community Internal Provider , [facility] Medicine in [address] [facility] [place] [address] Social History Tobacco Use Types Packs/Day [...] do you attend buddhist or Never 2021 mosque services? Do you [...] as of this encounter Care Teams Radio Communications Superintendent Relationship Specialty Start Date End Date Ewa Alejandro M.D. PCP - General 03/13/17 01/09/20 [address], [place] [phone] documented as of this encounter
--- OUTSIDE RECORDS SUMMARY | 2022-05-28 06:55 | XMS_ITS | Encounter Summary ---
:1945 Author Organization [facility] Address [address] [place] [address] Care Team Providers Name Role Phone Ewa Alejandro M.D. Primary Care Provider [phone] Reason for Visit Reason Comments Follow-up states made appoinmtnet when not feelling well, now feelling better not feelling will was related to his B/P med change Appointment Request (Routine) - Closed Specialty Diagnoses / Procedures Referred By Contact Refer red To Contact Family Medicine Referral ID Status Reason Start Date Expiration Date Visits Requ ested Visits Authorized [id number] Closed 09/04/2017 03/03/2018 1 1 Encounter Details Date Type Department Care Team Description 09/10/2017 Office Visit Department of Family Philip obrien And [place] Medicine, Ewa Barclay Clinic, in [place] [address] [place] [phone] Social History Tobacco Use Types Packs/Day Years [...] do you attend sabianism or Never 2021 buddhist services? Do you [...] Comments Blood Pressure 138/72 09/10/2017 11:12 AM INSIDE SALES ASSISTANT Pulse 86 09/10/2017 11:12 AM INSIDE SALES ASSISTANT Temperature 36.4 ??C (97.5 ??F) 09/10/2017 11:12 AM INSIDE SALES ASSISTANT Respiratory Rate 18 09/10/2017 11:12 AM INSIDE SALES ASSISTANT Oxygen Saturation 98% 09/10/2017 11:12 AM INSIDE SALES ASSISTANT Inhaled Oxygen Concentration - - Weight 111 kg (244 lb 0.8 oz) 09/10/2017 11:12 AM INSIDE SALES ASSISTANT Height - - Body Mass Index 31.32 [...] up to the service counter at a [email or web address] and could not get words to come [...] 08/28/[address] Prasanna Bernal at the [facility]. ??? TONSILLECTOMY N/A Tonsillectomy PREVENTIVE SERVICES Social [...] an MRA ofthe cerebral arteries at the [facility]. Further recommendations pending results. Follow up The patient will contact the clinic with any new or worsening symptoms. This document serves as a record of services personally performed by Ewa Roy MD. It was created on their behalf by Lulu Roldan, a trained medical sonographer. The creation of this record is based on the scribe's personal observations and the provider's statements to them. This document has been christie cked and approved by the attending provider. DE SALES ASSISTANT documented in this encounter Plan of Treatment Not on filedocumented as of this encounter Visit Diagnoses Diagnosis Dizziness And Giddiness documented in this encounter Care Teams Records Analysis Manager Relationship Specialty Start Date End Date Ewa Alejandro M.D. PCP - General 03/13/17 01/09/20 [address] [place] [phone] documented as of this encounter
--- OUTSIDE RECORDS SUMMARY | 2022-05-28 06:55 | XMS_ITS | Encounter Summary ---
:1945 Author Organization [facility] Address [address] [place] [address] Care Team Providers Name Role Phone Ewa Alejandro M.D. Primary Care Provider Encounter Details Date Type Department Care Team Description 09/17/2017 Hospital Encounter Department of Lea Gonsalez ent Ischemic Laboratory Medicine Ewa brunson Attack in [place] [address] [place] [phone] Social History Tobacco Use Types Packs/Day Years [...] do you attend buddhist or Never 2021 anabaptism services? Do you [...] Transient Ischemic Results for this EGFR, S/P EXTERMINATION SUPERVISOR Attack procedure are i n the results section. documented in this encounter Results Creatinine with Estimated GFR (MDRD) (09/17/2017 8:50 AM EXTERMINATION SUPERVISOR) P athologist Signature Creatinine 1.01 0.74 - 09/17/2017 [facility] 1.35 mg/dL 10:12 AM [facility] [employer] [facility] [place] [facility] eGFR 73 >=60 09/17/2017 [facility] Non-Black/Afric mL/min/BSA 10:12 AM [facility] [employer] [facility] Comment: ----ADDITIONAL INFORMATION---- Estimated GFR calculated using the 2009 CKD_EPI creatinine equation. eGFR Black/ 84 >=60 mL/min/BSA 09/17/2017 10:1 2 AM [facility] [employer] [facility] [place] [facility] Comment: ----ADDITIONAL INFORMATION---- Estimated GFR calculated using the 2009 CKD_EPI creatinine equation. Specimen Anatomical Collection Method Collection Time Receive d Time (Source) Location / / Volume Laterality Blood (Blood, 09/17/2017 8:50 AM 09/17/20 8:56 Venous) EXTERMINATION SUPERVISOR AM EXTERMINATION SUPERVISOR Ewa Alejandro M.D. LAB BLOOD ADD-ON Performing Organization Address City/State/ZIP Code Phon e Number [facility] [address] [place] [address] LAB documented in this encounter Visit Diagnoses Diagnosis Transient Ischemic Attack documented in this encounter Care Teams Operations Administrator Relationship Specialty Start Date End Date Ewa Alejandro M.D. PCP - General 03/13/17 01/09/202[address] [phone] documented as of this encounter
--- OUTSIDE RECORDS SUMMARY | 2022-05-28 06:55 | XMS_ITS | Encounter Summary ---
:1945 Author Organization [facility] Address [address] [place] [address] Care Team Providers Name Role Phone Piero Alejandro M.D. Primary Care Provider [phone] Encounter Details Date Type Department Care Team Description 07/17/2017 Hospital Encounter HX FBCV FAMILYPRA Piero Forbes M.D. [address] [place], [place] [phone] (Wo rk) Social History [...] do you attend mu-ism or Never 2021 congregational services? Do you [...] Alejandro M.D. - 07/17/2017 2:20 PM CDT FM-SV CHIEF COMPLAINT/ REASON FOR VISIT Diabetic review. [...] Dr. Prasanna Bernal at the [facility]. PREVENTIVE SERVICES Tobacco use: none, former smoker [...] and work [place]. He will update me with any changes to his regimen. 3. Follow up: The patient will contact the clinic with any new or worsening symptoms. This document serves as a record of services personally performed by Piero Roy MD. It was created on their behalf by Karen Givens, a trained medical transcriber. The creation of this record is based on the scribe's personal observations and the provider's statements to them. This document has been ch ecked and approved by the attending provider. Piero Hniton M.D./ Electronically Signed By: PIEOR ROJAS MD On: 07/22/2017 10:24 PM Source: [facility] [id number] Document Id: [id number] documented in this encounter Miscellaneous Notes Miscellaneous [...] ROJAS MD - 07/22/2017 12:44 CDT Source: [facility] POWERCHART Document Id: [id number] CDT!13 Miscellaneous - Marti Hamilton, L.P.N. - [...] HAMILTON LPN - 07/17/2017 15:29 CDT Source: [employer] Document Id: [id number] CDT!8 Miscellaneous - Marti Hamilton L.P.N. - [...] None Behavioral Health Screen/Safety Assmt : No Yazdanism Preference : Unknown MARTI HAMILTON LPN - 07/17/2017 15:27 CDT Advance Directive Advanced Directives : No Advance Directive Additional Information : No MARTI HAMILTON LPN - 07/17/2017 15:27 CDT Educ Needs Learning Style Preference Adult Grid Patient : Demonstration, Printed materials, Verbal explanation Family : None MARTI HAMILTON LPN - 07/17/2017 15:27 CDT [facility] Document Id: [id number] CDT!37 Miscellaneous - Marti Hamilton L.P.N. - 07/17/2017 3:26 PM CDT Adult Furniture Mover Helper Intake/History Adult Furniture Mover Helper Intake/History Entered On: 07/17/2017 15:27 CDT Performed [...] Preferred Communication Mode : Verbal Languages : Swiss Is Patient Female and 13-50 no hysterectomy [...] Tobacco Last Use/Year : 1982 MARTI HAMILTON MEDICARE COMPLIANCE AUDITOR - 07/17/2017 15:26 CDT Caffeine Use Grid Caffeine Use : Current Type : Chocolate, Coffee, Soft drinks Frequency : Daily MARTI HAMILTON LPN - 07/17/2017 15:26 CDT Recreational Drug Use Grid Drug Use : None MARTI HAMILTON MEDICARE COMPLIANCE AUDITOR - 07/17/2017 15:26 CDT Source: [employer] Document Id: [id number] CDT!41 documented in this encounter Plan of Treatment Not on filedocumented as of this encounter Visit Diagnoses Not on filedocumented in this encounter Additional Health Concerns Assessment Noted Time PHQ-9 Depression Total Score: 6 01/31/2015 12:28 PM CD T documented as of this encounter Care Teams Bobbin Handler Relationship Specialty Start Date End Date Piero Alejandro M.D. PCP - General 03/13/17 01/09/[address] [place] [phone] documented as of this encounter
--- OUTSIDE RECORDS SUMMARY | 2022-05-28 06:55 | XMS_ITS | Encounter Summary ---
:1945 Author Organization [facility] Address [address] [place] [address] Care Team Providers Name Role Phone Ewa Alejandro M.D. Primary Care Provider [phone] Encounter Details Date Type Department Care Team Description 05/08/2017 Hospital Encounter HX NO MAPPING [place] Bernal M.D. [address] [place], [place] [phone] (Wo rk) Social History [...] do you attend hinduism or Never 2021 worship services? Do you [...] Coding Summary-Paper Based CODING DATE: 05/20/2017 FINAL [facility] STATUS: * Discharged to Home or [...] TREVIZO Date Saved: 05/20/2017 02:50 pm Source: [facility] POWERCHART Document Id: [id number] documented in this encounter Plan of Treatment Not on filedocumented as of this encounter Visit Diagnoses Not on filedocumented in this encounter Additional Health Concerns Assessment Noted Time PHQ-9 Depression Total Score: 6 01/31/2015 12:28 PM CD T documented as of this encounter Care Teams Senior Systems Programmer Relationship Specialty Start Date End Date Ewa Alejandro M.D. PCP - General 03/13/17 01/09/[address] [phone] documented as of this encounter
--- OUTSIDE RECORDS SUMMARY | 2022-05-28 06:55 | XMS_ITS | Encounter Summary ---
:1945 Author Organization [facility] Address [address] [place] [address] Care Team Providers Name Role Phone Ewa Alejandro M.D. Primary Care Provider [phone] Reason for Referral Outpatient (Routine) - Closed Specialty Diagnoses / Procedures Referred By Contact Refer red To Contact Diagnoses Cancer Bladder Family History Prasanna Bernal M.D. 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 Do you [...] Comments Blood Pressure 124/70 09/18/2017 10:13 AM BALING PRESS OPERATOR Pulse 84 09/18/2017 10:13 AM BALING PRESS OPERATOR Temperature 36.5 ??C (97.7 ??F) 09/18/2017 10:13 AM BALING PRESS OPERATOR Respiratory Rate - - Oxygen Saturation [...] by: Prasanna Bernal M.D. 09/18/17 11:19 AM NG PRESS OPERATOR documented in this encounter Plan of Treatment Scheduled Orders Name Type Priority Associated Diagnoses Order S chedule Cystoscopy (specific Procedure Routine Cancer Bladder Famil y Expected: provider) History 01/15/2018 (Approximate), Expires: 2019 documented as of this encounter Procedures Procedure Name Priority Date/Time Associated Diagnosis Comme nts CYTOLOGY NON-BUTCHER APPRENTICE Routine 09/18/2017 11:01 AM Cancer Bladder Re sults for this BALING PRESS OPERATOR Family History procedure are in the results section. UROVYSION (R) FOR Routine 09/18/2017 11:01 AM Cancer Bladder R esults for this BLADDER CANCER BALING PRESS OPERATOR Family History procedure a re in the results section. documented in this encounter Results UroVysion for Detection of Bladder Cancer, Urine (09/18/2017 11:01 AM [facility]) Component Value Ref Test Analysis Performed At [facility] Range Method Time Signature Result Summary Negative 09/30/2017 [facility] 8:56 AM LABORATORIES - [facility] Karyotype No evidence of 09/30/2017 [facility] urothelial 8:56 AM LABORATORIES - carcinoma. [facility] Reason for Evaluate for 09/30/2017 [facility] referral urothelial 8:56 AM LABORATORIES - carcinoma. [facility] Specimen Varies 09/30/2017 [facility] 8:56 AM [facility]ATOR[facility] - [facility] Source Urine, NOS 09/30/2017 [facility] 8:56 AM [facility]ATORIES - [facility] Released By Miguelito Machuca 09/30/2017 [facility] Pato Crowell, 8:56 AM LABORATORIES - Ph.D. [facility] Interpretation This test result does not rule out the possibility t hat the 09/30/2017 [facility] patient may have a low-grade (i.e. grade 1 or 2) 8:56 AM LABORATORIES - non-invasive papillary urothelial carcinoma. Some patients [facility] with low grade non-invasive papillary urothelial carcinoma [facility]AMPUS do not have abnormalities with this FISH test. Comment: Interpreted by: Miguelito Crowell M.D., Ph.D., Signed on 09/30/2017 at 08:56 ----ADDITIONAL INFORMATION---- This test has been modified from the [place] ufacturer's instructions. Its performance characteristics were determi darnell by [facility] in a manner consistent [...] (Urine, 09/18/2017 11:01 7 8:35 Voided) AM BALING PRESS OPERATOR AM BALING PRESS OPERATOR Narrative This result has an attachment that is no t available. Prasanna Bernal M.D. LAB GENETIC TESTING Performing Organization Address City/State/ZIP Code Phon e Number [facility] LABORATORIES - [address] [place], [place] [address] [facility] Pathology Non-BUTCHER APPRENTICE Cytology (09/18/2017 11:01 AM BALING PRESS OPERATOR) Component Value Ref Test Analysis Performed At [facility] gist Range Method Time Signature Gross Description Received 20 09/19/2017 [facility] IC ml of yellow 3:31 PM [place] alcohol fixed SYSTEM- [facility] . [place] [facility] Collection CYTNG 09/19/2017 [facility] Procedure 3:31 PM [facility] CYTOLOG[facility] Fixative 50% reagent 09/19/2017 [facility] alcohol 3:31 PM [facility] CYTOLOG[facility] Source A. Urine, 09/19/2017 [facility] Midstream, 3:31 PM [place] voided [facility] CYTOLOGY Clinical History Cancer 09/19/2017 [facility] Bladder 3:31 PM [facility] CYTOLOGY Report Jose Khan MD 09/19/2017 [facility] electronically I verify that I have examined all relevant slides/ma terials 3:31 PM [place] signed by for the specimen(s) and rendered or confirmed the [facility] CYTOLOGY 09/19/2017 [facility] 3:31 PM [facility] CYTOLOGY Interpretation A. Urine, [place], voided (cytospin): Negative for 09/19/2017 [facility] High-Grade Urothelial Carcinoma. 3:31 PM [facility] CYTOLOGY Comment: Interpreted by: Jose lord MD, Signed on 09/19/2017 at 15:31 Specimen Anatomical Collection Method Collection Time Receive d Time (Source) Location / / Volume Laterality Varies 09/18/2017 11:01 09/19/2017 7:12 AM BALING PRESS OPERATOR AM BALING PRESS OPERATOR Narrative This result has an attachment that is no t available. Prasanna Bernal M.D. LAB SURG PATH ORDERABLES Performing Organization Address City/[facility]/ZIP Code Phon e Number [facility] [address] [place] [address] [place] [facility]- [address] [place] [address], [facility] documented in this encounter Visit Diagnoses Diagnosis 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 (HCC) - Primary Cancer Bladder Family History documented in this encounter Care Teams Supervisor Hospitality House Relationship Specialty Start Date End Date Ewa Alejandro M.D. PCP - General 03/13/17 01/09/20 [address] [place] [phone] documented as of this encounter
--- OUTSIDE RECORDS SUMMARY | 2022-05-28 06:55 | XMS_ITS | Encounter Summary ---
:1945 Author Organization [facility] Address [address] [place] [address] Care Team Providers Name Role Phone Ewa Alejandro M.D. Primary Care Provider Encounter Details Date Type Department Care Team Description 02/16/2018 Hospital Encounter Department of Laboratory Kirill Nicholas Diarrhea Medicine in [place], M.D. [place] [address] [place] [phone] Social History Tobacco Use Types Packs/Day Years [...] do you attend gnosticism or Never 2021 druze services? Do you [...] athologist Signature C. difficile Negative Negative 02/17/2018 [facility] Toxin PCR, F 10:41 PM CDT [facility] Comment: Notes\S\\S\Jonnathan Costa as [id number] Specimen Anatomical Collection Method Collection Time Receive d Time (Source) Location / / Volume Laterality Stool (Stool) 02/17/2018 8:00 AM 02/18/20 18 9:54 CDT PM CDT Ewa Alejandro M.D. LAB MICROBIOLOGY - GEN ERAL ORDERABLES Performing Organization Address City/State/ZIP Code Phon e Number [facility]- [address] [place] [address] [facility] documented in this encounter Visit Diagnoses Diagnosis Diarrhea documented in this encounter Care Teams Mercury Recoverer Relationship Specialty Start Date End Date Ewa Alejandro M.D. PCP - General 03/13/17 01/09/20 [address], [place] [phone] documented as of this encounter
--- OUTSIDE RECORDS SUMMARY | 2022-05-28 06:55 | XMS_ITS | Encounter Summary ---
:1945 Author Organization [facility] Address [address] [place] [address] Care Team Providers Name Role Phone Ewa Alejandro M.D. Primary Care Provider Encounter Details Date Type Department Care Team Description 01/22/2018 Hospital Encounter Department of [place] es Mellitus Laboratory Medicine Ewa brunson, Type 2 (HCC) in [place] [address] [place] [phone] Social History Tobacco Use Types Packs/Day [...] do you attend congregational or Never 2021 methodist services? Do you [...] A1c, 9.1 (H) 4.2 - 5.6 01/22/2018 [facility] B % 11:25 AM CDT [facility] LAB [...] Code Phon e Number [facility] [address] [place] [address] LAB documented in this encounter Visit Diagnoses Diagnosis Diabetes Mellitus Type 2 (HCC) documented in this encounter Care Teams Operating Room Assistant Relationship Specialty Start Date End Date Ewa Aeljandro M.D. PCP - General 03/13/17 01/09/[address] [place] [phone] documented as of this encounter
--- OUTSIDE RECORDS SUMMARY | 2022-05-28 06:55 | XMS_ITS | Encounter Summary ---
:1945 Author Organization [facility] Address [address] [place] [address] Care Team Providers Name Role Phone Ewa Alejandro M.D. Primary Care Provider [phone] Reason for Visit Reason Comments Follow-up review labs completed on and cystology completed on 01/19/2018 Appointment Request (Routine) - Closed Specialty Diagnoses / Procedures Referred By Contact Refer red To Contact Family Medicine Referral ID Status Reason Start Date Expiration Date Visits Requ ested Visits Authorized [id number] Closed 01/19/2018 07/18/2018 1 1 Encounter Details Date Type Department Care Team Description 01/26/2018 Office Visit Department of Family Philip trimble Mellitus Type Medicine, Ewa Barclay, 2 (HCC) (Primary Dx) Clinic, in [place] [address] [place] [phone] Social History Tobacco Use Types Packs/Day Years [...] do you attend christianity or Never 2021 methodist services? Do you belong to any clubs or No 10/09/2021 organizations such as christianity groups, unions, fraCAD Crowd or athletic groups, or school groups? How [...] at the [facility]. ??? TONSILLECTOMY N/A PREVENTIVE SERVICES Social [...] behalf by Karen Givens, a trained medical affairs specialist. The creation of this record is based on the scribe's personal observations and the provider's statements to them. This document has been ch ecked and approved by the attending provider. documented in this encounter Plan of Treatment Not on filedocumented as of this encounter Results (ABNORMAL) Microalbumin, Random, Urine (04/28/2018 8:49 AM CDT) [facility] Method Time Signature Microalbumin 613.6 mg/L 04/28/2018 [facility] 2:46 PM CDT [facility] Creatinine 133 mg/dL 04/28/2018 [facility] 2:46 PM CDT [facility] Albumin/Creatinin 461 (H) <17 mg/g 04/28/2018 [facility] e Ratio 2:46 PM CDT [facility] Specimen Anatomical Collection Method Collection Time Receive d Time (Source) Location / / Volume Laterality Urine (Urine, 04/28/2018 8:49 AM 04/28/20 18 Clean Catch) CDT 10:59 AM CDT Ewa Alejandro M.D. LAB URINE ORDERABLES Performing Organization Address City/State/ZIP Code Phon e Number [facility] [address] [place] [address] LAB (ABNORMAL) BMP (Basic Metabolic Panel) (04/28/2018 8:48 AM [facility]) P athologist Signature Potassium, S 4.7 3.6 - 5.2 04/28/2018 [facility] mmol/L 12:03 PM [facility] Sodium, S 138 135 - 145 04/28/2018 [facility] mmol/L 12:03 PM [facility] Chloride, S 104 98 - 107 04/28/2018 [facility] mmol/L 12:03 PM [facility] Bicarbonate, S 23 22 - 29 04/28/2018 [facility] mmol/L 12:03 PM [facility] Anion Gap 11 7 - 15 04/28/2018 [facility] 12:03 PM [facility] BUN (Blood Urea 34 (H) 8 - 24 04/28/2018 [facility] Nitrogen), S mg/dL 12:03 PM [facility] Creatinine 1.31 0.74 - 04/28/2018 [facility] 1.35 mg/dL 12:03 PM [facility] eGFR-Non 53 (L) >=60 04/28/2018 [facility] Black/ mL/min/BSA 12:03 PM [facility] [email or web address] [facility] Comment: ----ADDITIONAL INFORMATION---- Estimated GFR calculated using the 2009 CKD_EPI creatinine equation. eGFR-Black/ 62 >=60 mL/min/BSA 2017 12:03 PM [facility] [place] [facility] Comment: ----ADDITIONAL INFORMATION---- Estimated GFR calculated using the 2009 CKD_EPI creatinine equation. Calcium, Total, S 8.7 (L) 8.8 - 10.2 mg/dL 04/28/2018 1 2:03 PM [facility] [place] [facility] Glucose, S 220 (H) 70 - 140 mg/dL 04/28/2018 12:03 PM [facility] [place] [facility] Specimen Anatomical Collection Method Collection Time Receive d Time (Source) Location / / Volume Laterality Blood (Blood, 04/28/2018 8:48 AM 04/28/20 18 Venous) CDT 10:59 AM CDT Authorizing Provider Result Deloris Alejandro M.D. LAB BLOOD ADD-ON Performing Organization Address City/[facility]/ZIP Code Phon e Number [facility] [address] [place] [address] LAB (ABNORMAL) Hemoglobin A1c (04/28/2018 8:48 AM CDT) P athologist Signature Hemoglobin A1c, 8.9 (H) 4.2 - 5.6 04/28/2018 [facility] B % 1:25 PM CDT [facility] LAB Comment: Hemoglobin A1c values [...] M.D. LAB BLOOD ADD-ON Performing Organization Address City/[facility]/ZIP Code Phon e Number [facility] [address], [place] [address] LAB AST (Aspartate Aminotransferase) (04/28/2018 8:48 AM CDT) Patholo gist Method Time Signature Aspartate 17 8 - 48 04/28/2018 [facility] Aminotransferase U/L 12:03 PM CDT [email or web address] (AST), [facility] LAB Specimen Anatomical Collection Method Collection Time Receive d Time (Source) Location / / Volume Laterality Blood (Blood, 04/28/2018 8:48 AM 04/28/20 18 Venous) CDT 10:59 AM CDT Ewa Alejandro M.D. LAB BLOOD ADD-ON Performing Organization Address City/State/ZIP Code Phon e Number [facility] [place] [address] [place] [address] LAB (ABNORMAL) Lipid Panel (04/28/2018 8:48 AM CDT) P athologist Signature Cholesterol, 193 mg/dL 04/28/2018 [facility] Total 12:[address] [facility] [place] [facility] Comment: ----REFERENCE VALUE---- Desirable: < 200 Borderline high: 200 - 239 High: > or = 240 Triglycerides 402 (H) mg/dL 04/28/2018 2:48 PM CDT [facility] [place] [facility] Comment: ----REFERENCE VALUE---- Normal: <150 Borderline high: 150-199 High: 200-499 Very high: > or =500 Cholesterol, HDL, S 33 (L) >=40 mg/dL 04/28/2018 2:48 PM CDT [facility] [place] [facility] Calculated LDL CANCELED mg/dL 04/28/2018 2:48 PM CDT [facility] [place] [facility] Comment: Triglyceride >400 mg/dL. Calculated LDL cholesterol is not valid. Non-HDL cholesterol may be used f or cardiovascular disease risk assessment when triglycerid es are >400 mg/dL. Result canceled by the ancillary Cholesterol, Non-HDL, 160 (H) mg/dL 04/28/2018 2:48 PM CDT [facility] [place] Comment: ----REFERENCE VALUE---- Desirable: [...] e Number [facility] [address], [place] [address] LAB documented in this encounter Visit Diagnoses Diagnosis Diabetes Mellitus Type 2 (HCC) - Primary documented in this encounter Care Teams Credit Risk Manager Relationship Specialty Start Date End Date Ewa Alejandro M.D. PCP - General 03/13/17 [address] [place] [address] documented as of this encounter
--- OUTSIDE RECORDS SUMMARY | 2022-05-28 06:55 | XMS_ITS | Encounter Summary ---
:1945 Author Organization [facility] Address [address] [place] [address] Care Team Providers Name Role Phone Piero Alejandro M.D. Primary Care Provider [phone] Encounter Details Date Type Department Care Team Description 07/04/2017 Hospital Encounter HX [facility] Piero Grier M.D. [address] [place], [place] [phone] (Wo rk) Social History [...] do you attend alevism or Never 2021 yazdanism services? Do you [...] 08, 2017 16:03:35 CDT From: NANO MILES ([facility] Sandblaster Stone) To: [facility] Nurse; Sent: 07/08/2017 16:03:35 CDT Subject: RE: Addendum by NANO MILES on July 08, 2017 16:03:25 CDT Patient is scheduled at 2:30 on July 17. Addendum by KYLIE NINO LPN on July 07, 2017 11:05:07 CDT From: KYLIE NINO LPN ([facility] Nurse) To: [facility] Sandblaster Stone; Sent: 07/07/2017 11:05:07 CDT Subject: FW: From: PIERO ROJAS MD To: LAWSON Roy Nurse; Sent: 2017 17:00:49 CDT Have S imon follow up and bring a list of blood sugars with him. Source: [facility] POWERCHART Document Id: [id number] documented in this encounter Plan of Treatment [...] documented as of this encounter Care Teams Follow Up Specialist Relationship Specialty Start Date End Date Piero Alejandro M.D. PCP - General 03/13/17 01/09/20 [address], [place] [phone] documented as of this encounter
--- OUTSIDE RECORDS SUMMARY | 2022-05-28 06:55 | XMS_ITS | Encounter Summary ---
:1945 Author Organization [facility] Address [address] [place] [address] Care Team Providers Name Role Phone Ewa Alejandro M.D. Primary Care Provider [phone] Reason for Referral Outpatient (Routine) - Closed Specialty Diagnoses / Procedures Referred By Contact Refer red To Contact Neurology Diagnoses Dizziness And Giddiness ARMAAN Alejandro [facility] Felicita Mcneil M.D. [address] [address] Referral ID Status Reason Start Date Expiration Date Visits V isits Requested Authorized [id number] Closed Specialty 10/20/2017 04/18/2018 1 1 Services Required TH INFORMATION INTERNSHIP Reason for Visit Reason Comments Dizziness noted to have been started s cony cardiac medication changes Encounter Details Date Type Department Care Team Description 10/20/2017 Office Visit Department of Family Philip Echeverria ziness And Giddiness Medicine, Ewa Barclay, (Primary Dx) Clinic, in [place] [address] [place] [phone] [phone] Social History Tobacco Use Types Packs/Day Years [...] do you attend protestant or Never 2021 sabianism services? Do you [...] Comments Blood Pressure 128/68 10/20/2017 10:45 AM HEALTH INFORMATION INTERNSHIP Pulse 76 10/20/2017 10:36 AM HEALTH INFORMATION INTERNSHIP Temperature 36.6 ??C (97.9 ??F) 10/20/2017 10:36 AM HEALTH INFORMATION INTERNSHIP Respiratory Rate 16 10/20/2017 10:36 AM HEALTH INFORMATION INTERNSHIP Oxygen Saturation 96% 10/20/2017 10:36 AM HEALTH INFORMATION INTERNSHIP room a ir Inhaled Oxygen Concentration - - Weight 110 kg (242 lb 13.4 oz) 10/20/2017 10:36 AM HEALTH INFORMATION INTERNSHIP Height 188 cm (6' 2.02) 10/20/2017 10:36 AM HEALTH INFORMATION INTERNSHIP Body Mass Index 31.16 10/20/2017 10:36 AM HEALTH INFORMATION INTERNSHIP documented in this encounter Progress Notes Ewa [...] He states that he was at a constitution party the other day that he struggled getting [...] Asthma NOS Pulmonary symptomatology, diagnosis at the PA unclear, but probably some degree of COPD. [...] Dr. Prasanna Bernal at the [facility]. ??? TONSILLECTOMY N/A PREVENTIVE SERVICES Social [...] behalf by Karen Givens, a trained medical doctor md. The creation of this record is based on the scribe's personal observations and the provider's statements to them. This document has been ch ecked and approved by the attending provider. [employer] INFORMATION INTERNSHIP documented in this encounter Plan of Treatment Scheduled Referrals Name Type Priority Associated Diagnoses [facility] - General Outpatient Referral Routine Dizziness And Expected: consult (clinic) Giddiness 10/20/2017 (Approximate), Expires: 10/20/2020 documented as of this encounter Visit Diagnoses Diagnosis Dizziness And Giddiness - Primary documented in this encounter Care Teams Brass Sorter Relationship Specialty Start Date End Date Ewa Alejandro M.D. PCP - General 03/13/17 01/09/20 [address] [place] [phone] documented as of this encounter
--- OUTSIDE RECORDS SUMMARY | 2022-05-28 06:55 | XMS_ITS | Encounter Summary ---
:1945 Author Organization [facility] Address [address] [place] [address] Care Team Providers Name Role Phone Ewa Aljeandro M.D. Primary Care Provider [phone] Reason for Referral MRI/CAT/PET Scan (Routine) - Closed Specialty Diagnoses / Procedures Referred By Contact Refer red To Contact Radiology Diagnoses Dizziness ARMAAN Alejandro [facility] Region Procedures MR Brain without and with IV Contrast [place] Mcneil [address] [address] Referral ID Status Reason Start Date Expiration Date Visits Requ ested Visits Authorized [id number] Closed 09/12/2017 03/11/2018 1 1 UME DESIGNER Encounter Details Date Type Department Care Team Description 09/12/2017 Orders Only Department of [facility] Philip obrien (Primary Dx) Medicine, Ewa [facility], in [place] [address] [place] [address] [place] [phone] Social History Tobacco Use Types Packs/Day Years [...] do you attend amish or Never 2021 yazidi services? Do you [...] and with IV Contrast (09/17/2017 10:20 AM COSTUME DESIGNER) Anatomical Region Laterality Modality Head, Brain N/A Magnetic Resonance Specimen (Source) Anatomical Collection Method Collection Time Re ceived Time Location / / Volume Laterality 09/17/2017 11:01 AM COSTUME DESIGNER Impressions 09/17/2017 11:38 AM COSTUME DESIGNER IMPRESSION: 1. 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 2. Normal variant head MRA. 3. Paranasal sinus disease appears acute . Narrative 09/17/2017 11:38 AM COSTUME DESIGNER EXAM: MR BRAIN WITHOUT AND WITH IV [...] Dizziness documented in this encounter Care Teams Forest Engineer Relationship Specialty Start Date End Date Ewa Alejandro M.D. PCP - General 03/13/17 01/09/20 [address] [place] [address] documented as of this encounter
--- OUTSIDE RECORDS SUMMARY | 2022-05-28 06:55 | XMS_ITS | Encounter Summary ---
:1945 Author Organization [facility] Address [address] [place] [address] Care Team Providers Name Role Phone Ewa Alejandro M.D. Primary Care Provider Reason for Visit Reason Comments Follow-up Last visit 05/02/16 Continues to have balance problems. Had MRI brain 09/17/18. Outpatient (Routine) - Closed Specialty Diagnoses / Procedures Referred By Contact Refer red To Contact Neurology Diagnoses Dizziness And Giddiness ARMAAN Alejandro [facility] [place] Mcneil [address] [place] [address] Referral ID Status Reason Start Date Expiration Date Visits V isits Requested Authorized [id number] Closed Specialty 10/20/2017 04/18/2018 1 1 Services Required Encounter Details Date Type Department Care Team Description 10/30/2017 Office Visit Department of Ewa Evans M.D. [address] [place] [address] Dizziness And Giddiness Neurology in [place] Lala M.D., M.P.H. [address] [place] [phone] [phone] Social History Tobacco Use Types Packs/Day Years [...] Comments Blood Pressure 128/72 10/30/2017 1:02 PM CULTURAL CENTRE MANAGER Pulse 79 10/30/2017 12:55 PM CULTURAL CENTRE MANAGER Temperature - - Respiratory Rate - - Oxygen Saturation - - Inhaled Oxygen Concentration - - Weight 111 kg (244 lb 0.8 oz) 10/30/2017 12:55 PM CULTURAL CENTRE MANAGER Height - - Body Mass Index 31.32 10/20/2017 10:36 AM CULTURAL CENTRE MANAGER documented in this encounter Consult Notes Tae [...] blood pressure has been addressed at the [facility] where a clinical pharmacist started amlodipine 5 [...] when they are having an annual related [place] constitution party that when he got home he [...] was 65 minutes with 40 in counseling. URAL CENTRE MANAGER documented in this encounter Plan of Treatment Not on filedocumented as of this encounter Visit Diagnoses Diagnosis Dizziness And Giddiness documented in this encounter Care Teams Coagulator Relationship Specialty Start Date End Date Ewa Alejandro M.D. PCP - General 03/13/17 01/09/[address] [phone] documented as of this encounter
--- OUTSIDE RECORDS SUMMARY | 2022-05-28 06:55 | XMS_ITS | Encounter Summary ---
:1945 Author Organization [facility] Address [address] [place] [address] Care Team Providers Name Role Phone Ewa Alejandro M.D. Primary Care Provider [phone] Reason for Referral Outpatient (Routine) - Closed Specialty Diagnoses / Procedures Referred By Contact Refer red To Contact Diagnoses Cancer Bladder Family History Prasanna Bernal M.D. [facility] Procedures Cystoscopy (specific provider) [address] [place] [phone] Referral ID Status Reason Start Date Expiration Date Visits Requ ested Visits Authorized [id number] Closed 01/15/2018 07/14/2018 1 1 Reason for Visit Outpatient (Routine) - Closed Specialty Diagnoses / Procedures Referred By Contact Refer red To Contact Diagnoses Cancer Bladder Family History [facility] M.D. [facility] Procedures Cystoscopy (specific provider) [address] [place] [phone] Referral ID Status Reason Start Date Expiration Date Visits Requ ested Visits Authorized [id number] Closed 09/18/2017 03/17/2018 1 1 Encounter Details Date Type Department Care Team Description 01/15/2018 Procedure visit Department of Urology Prasanna Bernal, Cancer Bladder Family in [place] [address] [place] [phone] Social History Tobacco Use Types Packs/Day [...] do you attend orthodoxy or Never 2021 rastafari services? Do you [...] Priority Date/Time Associated Diagnosis Comme nts CYTOLOGY NON-TRUCK DRIVER INSTRUCTOR Routine 01/15/2018 3:24 PM Cancer Bladder Res ults for this CDT Family History procedure are in the results section. documented in this encounter Results Pathology Non-TRUCK DRIVER INSTRUCTOR Cytology (01/15/2018 3:24 PM CDT) Component Value Ref Test Analysis Performed At [facility] Range Method Time Signature Gross Description Received 100 01/19/2018 [facility] ml of yellow 2:07 PM [facility] Collection clean catch 01/19/2018 [facility] Procedure 2:07 PM T [facility] CYTOLOGY Fixative none 01/19/2018 [facility] 2:07 PM [facility] CYTOLOGY Source A. Urine, 01/19/2018 [facility] voided 2:07 PM [facility] CYTOLOGY Clinical History bladder 01/19/2018 [facility] cancer 2:07 PM [facility] CYTOLOGY Report Brady Goodrich MD 01/19/2018 [facility] electronically I verify that I have examined all relevant slides/ma terials 2:07 PM [facility] signed by for the specimen(s) and rendered or confirmed the [facility] CYTOLOGY 01/19/2018 [facility] 2:07 PM T [facility] CYTOLOGY Interpretation A. Urine, voided (cytospin): Negative for High-Grade 01/19/2018 [facility] Urothelial Carcinoma. 2:07 PM CDT [facility] CYTOLOGY Comment: Interpreted by: Brady Goodrich MD, [...] Phon e Number [facility] [address] [place] [address] CYTOLOGY documented in this encounter Visit Diagnoses Diagnosis Cancer Bladder Family History documented in this encounter Care Teams Track Repairer Helper Relationship Specialty Start Date End Date Ewa Alejandro M.D. PCP - General 03/13/17 01/09/[address] [phone] documented as of this encounter
--- OUTSIDE RECORDS SUMMARY | 2022-05-28 06:55 | XMS_ITS | Encounter Summary ---
:1945 Author Organization [facility] Address [address] [place] [address] Care Team Providers Name Role Phone Ewa Alejandro M.D. Primary Care Provider [phone] Reason for Visit Reason Comments Diarrhea diarrhea x 10 days with 20 p ound weight loss. vomiting starting today Encounter Details Date Type Department Care Team Description 02/16/2018 Office Visit Department of [facility] Alicia ch (Primary Dx); Medicine, Ewa [facility], in [place] [address] [place] [phone] Social History Tobacco Use Types Packs/Day Years [...] do you attend latter-day or Never 2021 amish services? Do you [...] 08/28/[address] Prasanna Bernal at the [facility]. ??? TONSILLECTOMY N/A PREVENTIVE SERVICES Social [...] and hyperkalemia Discussed sending him over to [facility] for IV fluids which he [...] their behalf by Lulu Roldan, a trained dental assistant medical assistant. The creation of this record [...] Potassium, S 5.0 3.6 - 5.2 02/17/2018 [facility] mmol/L 1:45 PM CDT [facility] Sodium, S 134 (L) 135 - 145 02/17/2018 [facility] mmol/L 1:45 PM CDT [facility] Chloride, S 98 98 - 107 02/17/2018 [facility] mmol/L 1:45 PM CDT [facility] Bicarbonate, S 21 (L) 22 - 29 02/17/2018 [facility] mmol/L 1:45 PM CDT [facility] Anion Gap 15 7 - 15 02/17/2018 [facility] 1:45 PM CDT [facility] BUN (Blood Urea 69 (H) 8 - 24 02/17/2018 [facility] Nitrogen), S mg/dL 1:45 PM CDT [facility] Creatinine 2.22 (H) 0.74 - 02/17/2018 [facility] 1.35 mg/dL 1:45 PM [facility] eGFR-Non 28 (L) >=60 02/17/2018 [facility] Black/ mL/min/BSA 1:45 PM T [facility] Comment: ----ADDITIONAL INFORMATION---- Estimated GFR calculated using the 2009 CKD_EPI creatinine equation. eGFR-Black/ 33 (L) >=60 mL/min/BSA 02/17/2018 1:45 [facility] Comment: ----ADDITIONAL INFORMATION---- Estimated GFR calculated using the 2009 CKD_EPI creatinine equation. Calcium, Total, S 9.3 8.8 - 10.2 mg/dL 02/17/2018 1:45 PM [facility] Glucose, S 336 (H) 70 - 140 mg/dL 02/17/2018 1:45 PM [facility] Specimen Anatomical Collection Method Collection Time Receive d Time (Source) Location / / Volume Laterality Blood (Blood, 02/17/2018 10:41 02/17/2018 Venous) AM CDT 12:54 PM CDT Ewa Alejandro M.D. LAB BLOOD ADD-ON Performing Organization Address City/State/ZIP Code Phon e Number [facility] [address] [place] [address] LAB C. difficile Toxin PCR, Feces (02/17/2018 8:00 AM CDT) P athologist Signature C. difficile Negative Negative 02/17/2018 [facility] Toxin PCR, F 10:41 PM CDT [facility] Comment: Notes\S\\S\Jonnathan Costa as [id number] Specimen Anatomical Collection Method Collection Time Receive d Time (Source) Location / / Volume Laterality Stool (Stool) 02/17/2018 8:00 AM 02/18/20 9:54 CDT PM CDT Ewa Alejandro M.D. LAB MICROBIOLOGY - GEN ERAL ORDERABLES Performing Organization Address City/State/ZIP Code Phon e Number [facility] [address] [place] [address] [facility] GI Pathogen Panel, PCR, Feces (02/16/2018 1:00 PM CDT) [facility] Method Time Signature Specimen Source STOOL 02/17/2018 [facility] 6:26 AM CDT [facility] Campylobacter Negative Negative 02/17/2018 [facility] species 6:26 AM CDT [facility] C. difficile toxin Negative Negative 02/17/2018 [facility] 6:26 AM CDT [facility] Plesiomonas Negative Negative 02/17/2018 [facility] shigelloides 6:26 AM CDT [facility] Salmonella species Negative Negative 02/17/2018 [facility] 6:26 AM CDT [facility] Vibrio species Negative Negative 02/17/2018 [facility] 6:26 AM CDT [facility] Vibrio cholerae Negative Negative 02/17/2018 [facility] 6:26 AM CDT [facility] Yersinia species Negative Negative 02/17/2018 [facility] 6:26 AM CDT [facility] Enteroaggregative E. Negative Negative 02/17/2018 [facility] coli (EAEC) 6:26 AM CDT [facility] Enteropathogenic E. Negative Negative 02/17/2018 [facility] coli (EPEC) 6:26 AM CDT [facility] Enterotoxigenic E. Negative Negative 02/17/2018 [facility] coli (ETEC) 6:26 AM CDT [facility] Shiga toxin Negative Negative 02/17/2018 [facility] producing E. coli 6:26 AM CDT [facility] Shigella/Enteroinvas Negative Negative 02/17/2018 [facility] akil E. coli 6:26 AM CDT [facility] Cryptosporidium Negative Negative 02/17/2018 [facility] species 6:26 AM CDT [facility] Cyclospora Negative Negative 02/17/2018 [facility] cayetanensis 6:26 AM CDT [facility] Entamoeba Negative Negative 02/17/2018 [facility] histolytica 6:26 AM CDT [facility] Giardia Negative Negative 02/17/2018 [facility] 6:26 AM CDT [facility] Adenovirus F40/41 Negative Negative 02/17/2018 [facility] 6:26 AM CDT [facility] Astrovirus Negative Negative 02/17/2018 [facility] 6:26 AM CDT [facility] Norovirus GI/GII Negative Negative 02/17/2018 [facility] 6:26 AM CDT [facility] Rotavirus Ag, F Negative Negative 02/17/2018 [facility] 6:26 AM CDT [facility] Sapovirus Negative Negative 02/17/2018 [facility] 6:26 AM CDT [facility] Comment: ----ADDITIONAL INFORMATION---- This assay is performed using the FDA-cl eared FilmArray GI Panel ([employer] Specimen Anatomical Collection Method Collection Time Receive d Time (Source) Location / / Volume Laterality Stool (Stool) 02/16/2018 1:00 PM 02/17/20 18 CDT 11:25 PM CDT Ewa Alejandro M.D. LAB MICROBIOLOGY - GEN ERAL ORDERABLES Performing Organization Address City/State/ZIP Code Phon e Number [facility] [address] [place] [address] LAB (ABNORMAL) Comprehensive Metabolic Panel (02/16/2018 10:49 AM CDT) Analysis Performed At Patho logist Time Signature Potassium, S 5.5 (H) 3.6 - 5.2 02/16/2018 [facility] mmol/L 1:56 PM CDT [facility] Sodium, S 137 135 - 145 02/16/2018 [facility] mmol/L 1:56 PM CDT [facility] Chloride, S 100 98 - 107 02/16/2018 [facility] mmol/L 1:56 PM CDT [facility] Bicarbonate, S 19 (L) 22 - 29 02/16/2018 [facility] mmol/L 1:56 PM CDT [facility] Anion Gap 18 (H) 7 - 15 02/16/2018 [facility] 1:56 PM [facility] [place] BUN (Blood Urea 66 (H) 8 - 24 02/16/2018 [facility] Nitrogen), S mg/dL 1:56 PM [facility] [place] Creatinine 2.32 (H) 0.74 - 02/16/2018 [facility] 1.35 mg/dL 1:56 PM [facility] [place] eGFR-Non 27 (L) >=60 02/16/2018 [facility] Black/ mL/min/BSA 1:56 PM [facility] [place] [facility] Comment: ----ADDITIONAL INFORMATION---- Estimated GFR calculated using the 2009 CKD_EPI creatinine equation. eGFR-Black/ 31 (L) >=60 mL/min/BSA 02/16/2018 1:56 [facility] [facility] Comment: ----ADDITIONAL INFORMATION---- Estimated GFR calculated using the 2009 CKD_EPI creatinine equation. Calcium, Total, S 8.8 8.8 - 10.2 02/16/2018 7:45 PM [facility] mg/dL [facility] [place] Glucose, S 276 (H) 70 - 140 mg/dL 02/16/2018 1:56 PM [facility] [place] [facility] Protein, Total, S 7.0 6.3 - 7.9 g/dL 02/16/2018 1:56 P M [facility] [place] [facility] Albumin, S 4.4 3.5 - 5.0 g/dL 02/16/2018 1:56 PM [facility] [place] [facility] Aspartate 16 8 - 48 U/L 02/16/2018 1:56 PM [facility] Aminotransferase (AST), S [facility] [place] [facility] Alkaline Phosphatase, S 121 (H) 45 - 115 U/L 02/16/2018 1: 56 PM [facility] [place] [facility] Alanine Aminotransferase 17 7 - 55 U/L 02/16/2018 1:5 6 PM [facility] (ALT), S [facility] [place] [facility] Bilirubin, Total, S 0.6 <=1.2 mg/dL 02/16/2018 1:56 PM [facility] Specimen Anatomical Collection Method Collection Time Receive d Time (Source) Location / / Volume Laterality Blood (Blood, 02/16/2018 10:49 02/16/2018 1:03 Venous) AM CDT PM CDT Ewa Alejandro M.D. LAB BLOOD ADD-ON Performing Organization Address City/State/ZIP Code Phon e Number [facility] [address] [place] [address] LAB (ABNORMAL) CBC with Differential, Blood (02/16/2018 10:49 AM CDT) [facility] Method Time Signature Hemoglobin 14.8 13.2 - 02/16/2018 [facility] 16.6 g/dL 11:24 AM [facility] Hematocrit 41.0 38.3 - 02/16/2018 [facility] 48.6 % 11:24 AM [facility] Erythrocytes 4.76 4.35 - 02/16/2018 [facility] 5.65 11:24 AM CDT HEALTH x10(12)/L [facility] LAB MCV 86.1 78.2 - 02/16/2018 [facility] 97.9 fL 11:24 AM [facility] RBC Distrib Width 13.4 11.8 - 02/16/2018 [facility] 14.5 % 11:24 AM [facility] Platelet Count 230 135 - 317 02/16/2018 [facility] x10(9)/L 11:24 AM [facility] Leukocytes 13.2 (H) 3.4 - 9.6 02/16/2018 [facility] x10(9)/L 11:24 AM [facility] Neutrophils 9.97 (H) 1.56 - 02/16/2018 [facility] 6.45 11:24 AM CDT [facility] x10(9)/L [facility] Lymphocytes 1.63 0.95 - 02/16/2018 [facility] 3.07 11:24 AM CDT [facility] x[facility](9)/[facility] Monocytes 0.71 0.26 - 02/16/2018 [facility] 0.81 11:24 AM CDT [facility] x10(9)/L [facility] [place] [facility] Eosinophils 0.85 (H) 0.03 - 02/16/2018 [facility] 0.48 11:24 AM CDT HEALTH x10(9)/L [facility] [place] [facility] Basophils 0.02 0.01 - 02/16/2018 [facility] 0.08 11:24 AM CDT [facility]ALTH x10(9)/L [facility] [place] [facility] Specimen Anatomical Collection Method Collection Time Receive d Time (Source) Location / / Volume Laterality Blood (Blood, 02/16/2018 10:49 02/16/2018 Venous) AM CDT 10:52 AM CDT Ewa Alejandro M.D. LAB BLOOD ADD-ON Performing Organization Address City/State/ZIP Code Phon e Number [facility] [address] [place] [address] [place] [address] [place] [address] [place] [facility] documented in this encounter Visit Diagnoses Diagnosis Diarrhea - Primary Insufficiency Renal documented in this encounter Care Teams Boiling Off Winder Relationship Specialty Start Date End Date Ewa Alejandro M.D. PCP - General 03/13/17 01/09/20 [address] [place] [phone] documented as of this encounter
--- OUTSIDE RECORDS SUMMARY | 2022-05-28 06:56 | XMS_ITS | Encounter Summary ---
:1945 Author Organization [facility] Address [address] [place] [address] Care Team Providers Name Role Phone Unavailable Primary Care Provider Unavailable Encounter Details Date Type Department Care Team Description 02/06/2017 Hospital Encounter HX NO MAPPING Virginia Bernal M.D. [address] [place], [place] [phone] (Wo rk) Social History [...] do you attend buddhism or Never 2021 methodist services? Do you [...]
--- OUTSIDE RECORDS SUMMARY | 2022-05-28 06:56 | XMS_ITS | Encounter Summary ---
:1945 Author Organization [facility] Address [address] [place] [address] Care Team Providers Name Role Phone Unavailable Primary Care Provider Unavailable Encounter Details Date Type Department Care Team Description 05/28/2016 Hospital Encounter HX [facility] FBHB FAMILYPRA Ewa Moya i, M.D. [address] [place] [address] (Wo rk) Social History Tobacco [...] do you attend worship or Never 2021 judaism services? Do you [...] by 0 2015 mg tablet mouth daily. insulin glargine Inject 20 Units under 0 02/01/20 15 05/06/2020 (LANTUS) 100 unit/mL the skin at bedtime. injection losartan (for_COZAAR) Take 50 mg by mouth 0 10/1305/06/2020 100 mg tablet daily. budesonide-formoterol Inhale 2 puffs as 0 [...] Weiss M.D. - 05/28/2016 3:15 PM CDT [id number] CHIEF COMPLAINT/ REASON FOR VISIT Low blood pressure. HISTORY OF PRESENT ILLNESS Jonnathan is a 70 year old male who presents to the clinic today for low blood pressure. When he was seen yesterday at the [facility] for catheter removal he was noted [...] dysfunction. 6. Pulmonary symptomatology, diagnosis at the [place] unclear, but probably some degree of COPD. 7. Status post left cataract surgery at the [place]. 8. Tonsillectomy. 9. Obstructive sleep apnea, prescribed [...] behalf by Lulu Roldan, a trained medical massage therapist. The creation of this record is based on the scribe's personal observations and the provider's statements to them. This document has been christie cked and approved by the attending provider. Ewa Hinton M.D./livia Electronically Signed By: EWA WEISS MD On: 06/29/2016 11:54 AM Source: [facility] MHSDOLBEYNONRADSYS Document Id: [id number] documented in this encounter Miscellaneous Notes Miscellaneous - Ewa Weiss M.D. - 05/28/2016 5:31 PM CDT Ambulatory Patient Summary [address] [id number] Visit Information Name: JONNATHAN COSTA [facility] Number: [id number] Current Date: 05/28/2016 17:31:20 Physicians [...] Appointments Date Time Location Provider 08/19/2016 08:15 [facility] FamilyPra Ewa Roy MD 08/29/2016 08:15 [...] form. Youll be asked for your [facility] number which you can find at the top of this document. Your Goals/Additional instructions: Source: [facility] POWERCHART Document Id: [id number] Miscellaneous - Ewa Weiss M.D. - 05/28/2016 5:31 PM CDT Ambulatory Discharge Medication List [address] [id number] Visit Information Name: OJNNATHAN COSTA [facility] Number: [id number] Visit Date: 05/28/2016 17:31:20 Attending [...] MD Signed On:28-MAY-2016 17:31:18 Additional Information: Source: [facility] POWERCHART Document Id: [id number] Miscellaneous - HamiltonMarti arana, L.P.N. - 05/28/2016 3:37 PM CDT Adult Wood Inspector Intake/History Adult Wood Inspector Intake/History Entered On: 05/28/2016 15:40 CDT Performed [...] Scale Verbal 0-10 : Open MARTI HAMILTON [facility] - 05/28/2016 15:37 CDT Pain Pain Assessment Grid Pain 1 Location : Bladder Laterality : Other: spasms Intensity : 5 MARTI HAMILTON DEMOLITIONIST - 05/28/2016 15:37 CDT Dependent Habits Exposure [...] HAMILTON LPN - 05/28/2016 15:37 CDT [facility] Document Id: [id number] CDT!43 documented in this encounter Plan of Treatment Not on filedocumented as of this encounter Visit Diagnoses Not on filedocumented in this encounter Additional Health Concerns Assessment Noted Time PHQ-9 Depression Total Score: 6 01/31/2015 12:28 PM CD T documented as of this encounter
--- OUTSIDE RECORDS SUMMARY | 2022-05-28 06:56 | XMS_ITS | Encounter Summary ---
:1945 Author Organization [facility] Address [address] [place] [address] Care Team Providers Name Role Phone Unavailable Primary Care Provider Unavailable Encounter Details Date Type Department Care Team Description 02/06/2017 Hospital Encounter HX [facility] UROLOGY Ailyn Bernal M.D. [address] [place] [address] (Wo rk) Social History Tobacco [...] do you attend zoroastrian or Never 2021 amish services? Do you [...] BERNAL MD On: 02/06/2017 10:39 AM Source: [facility] POWERSiteWit Document Id: [id number] documented in this encounter Miscellaneous Notes Miscellaneous [...] FUROC Result-[place] See Comment 02/06/2017 10:17 FUROC Interp-[place] See Comment 02/06/2017 10:17 FUROC Reason for Ref-[place] See Comment 02/06/2017 10:17 FUROC Spec-[place] Varies 02/06/2017 10:17 FUROC Source-[place] Urine, NOS 02/06/2017 10:17 FUROC Released By-[place] BEATRIZ GALLEGO Source: [facility] Document Id: [id number] Miscellaneous - Raegan Toney APRN, R.N. - 02/07/2017 1:04 PM CDT Results Notification Document Contains Addenda Addendum by RODERICK THOMAS LPN on February 12, 2017 09:55:40 CDT Patient's schedule with studio receptionist to have patient leave a urine sample at the [facility]. Addendum by RODERICK THOMAS LPN on [...] Result Name 02/07/2017 12:24 Document - DOC Non-BILL PEDDLER Cytology Source: [employer] Document Id: [id number] Miscellaneous - Ailyn Bernal M.D. - 02/06/2017 10:38 AM CDT Ambulatory Patient Summary [facility] [address] [place] [id number] Visit Information Name: BETH COSTA [facility] Number: [id number] Current Date: 02/06/2017 10:38:06 Physicians [...] if you dont have one. Go to [email or web address] and click on Create Your Account. Then, follow the directions to complete the online form. Youll be asked for your [facility] number which you can find at the top of this document. Your Goals/Additional instructions: Source: [facility] POWERCHART Document Id: [id number] Miscellaneous - Ailyn Bernal M.D. - 02/06/2017 10:38 AM CDT Ambulatory Discharge Medication List [facility] [address] [place] [id number] Visit Information Name: BETH COSTA [facility] Number: [id number] Current Date: 02/06/2017 10:38:05 Attending [...] MD Signed On:06-FEB-2017 10:38:02 Additional Information: Source: [facility] POWERCHART Document Id: [id number] Miscellaneous - Janes Umanzor L.P.N. - 02/06/2017 10:01 AM CDT Adult Privacy Analyst Intake/History Adult Privacy Analyst Intake/History Entered On: 02/06/2017 10:04 CDT Performed [...] Preferred Communication Mode : Verbal Languages : [place] Is Patient Female and 13-50 no hysterectomy [...] UMANZOR LPN - 02/06/2017 10:01 CDT Source: [facility] POWERCHART Document Id: [id number] CDT!33 documented in this encounter Plan of Treatment Not on filedocumented as of this encounter Procedures Procedure Name Priority Date/Time Associated Comments Diagnosis UROVYSION (R) FOR Routine 02/06/2017 10:17 Result s for this BLADDER CANCER AM CDT procedure are in the results section. ZZPATHOLOGY NON-BILL PEDDLER Routine 02/06/2017 9:55 AM Re sults for this CYTOLOGY CDT procedure are i n the results section. documented in this encounter Results UroVysion for Detection of Bladder Cancer, Urine (02/06/2017 10:17 AM CDT) [facility] Method Time Signature HXFUROC Result Negative POWERCHART [facility] HXFUROC See Comment POWERCHART Result-[place] Comment: RESULT: No evidence of urotheli al [...] Its performance characteri stics were determined by [facility] in a manner co nsistent with CLIA requirements. This test has not been fernando ared or approved by the U.S. Food and Drug Administration. Reason For Referral See Comment POWERCHA RT Comment: RESULT: Evaluate for urothelial carcinoma. HXFUROC Spec-[place] Varies POWERCHART HXFUROC Source-[place] Urine, NOS POWERCHAR T HXFUROC Released By-[place] BEATRIZ WALLER ERCHART Comment: Test Performed by: [facility] - [address] [address] Specimen (Source) Anatomical Collection Method Collection Time Re ceived Time Location / / Volume Laterality Urine 02/06/2017 10:17 AM CDT Ailyn Bernal M.D. LAB GENETIC TESTING Performing Organization Address City/State/ZIP Code Phon e Number POWERCHART ZZPATHOLOGY NON-BILL PEDDLER CYTOLOGY (02/06/2017 9:55 AM CDT) Specimen (Source) Anatomical Collection Method Collection Time Re ceived Time Location / / Volume Laterality 02/06/2017 9:55 AM CDT Narrative [facility] - 02/07/2017 12:24 PM CDT [facility] [place] [address] [place] [address] ??[phone] Patient Name: BETH COSTA Patient ID #: [id number] Collected: 02/06/2017 Address: [facility]/Zip: [id number] [place] [address] ??[phone] Received: Reported: 02/07/2017 02/07/2017 Soc. Sec. #: ?/Age/Sex 1945 (Age: 71) ??M Physician(s): Juana BERNAL MD Copy To: ? [facility] ?? [id number] [facility] ??[address] CYTOPATHOLOGY NON-BILL PEDDLER REPORT FINAL CYTOLOGIC DIAGNOSIS Urine-CATHETERIZED OR POST INSTRUMENTATI ON: DIAGNOSIS ATYPICAL UROTHELIAL CELLS. SATISFACTORY SPECIMEN FOR EVALUATION. THIS CASE WAS REVIEWED WITH DR. CONNER PRYRO. Electronically Signed By mpg/02/07/2017 MD TESSA SOLORIO(ASCP) [...]
--- OUTSIDE RECORDS SUMMARY | 2022-05-28 06:56 | XMS_ITS | Encounter Summary ---
:1945 Author Organization [facility] Address [address] [place] [address] Care Team Providers Name Role Phone Unavailable Primary Care Provider Unavailable Encounter Details Date Type Department Care Team Description 02/27/2017 Hospital Encounter HX [facility] FBCV LAB Ewa Grier M.D. [address] [place], [place] [phone] (Wo rk) Social History [...] do you attend jain or Never 2021 judaism services? Do you [...] (ABNORMAL) Lipid Panel (02/27/2017 7:47 AM CDT) [facility] gist Method Time Signature Calculated LDL Test [...] for FH and FDB is available christopher [facility]: FH/ADH Genetic Reflex Saleh el (test ADHP). Acquired (non-genetic) causes of markedly increased LDL cholesterol include cholestatic liver disease due to the presence of LpX. If a genetic form of hypercholesterolemia is suspected, family studies including biochemical testing fo r lipids (total cholesterol,triglycerides, LDL cholesterol and HDL cholesterol) are recommended. ??Please contact the laboratory at or the on-line test catalog at [employer] for information about how to order these [...]
--- OUTSIDE RECORDS SUMMARY | 2022-05-28 06:56 | XMS_ITS | Encounter Summary ---
:1945 Author Organization [facility] Address [address] [place] [address] Care Team Providers Name Role Phone Unavailable Primary Care Provider Unavailable Encounter Details Date Type Department Care Team Description 05/22/2016 Hospital Encounter HX NO MAPPING Virginia Bernal M.D. [address] [place], [place] [phone] (Wo rk) Social History [...] do you attend hindu or Never 2021 judaism services? Do you [...]
--- OUTSIDE RECORDS SUMMARY | 2022-05-28 06:56 | XMS_ITS | Encounter Summary ---
:1945 Author Organization [facility] Address [address] [place] [address] Care Team Providers Name Role Phone Unavailable Primary Care Provider Unavailable Encounter Details Date Type Department Care Team Description 02/27/2017 Hospital Encounter HX [facility] FBCV LAB Ewa Grier M.D. [address] [place], [place] [phone] (Wo rk) Social History [...] do you attend baptism or Never 2021 uatsdin services? Do you [...] Comment: Biotin has been identified by the [facility] as a potential interfering substance. [...] AST (Aspartate Aminotransferase) (02/27/2017 7:47 AM CDT) [facility] gist Method Time Signature Aspartate 23 [...]
--- OUTSIDE RECORDS SUMMARY | 2022-05-28 06:56 | XMS_ITS | Encounter Summary ---
:1945 Author Organization [facility] Address [address] [place] [address] Care Team Providers Name Role Phone Unavailable Primary Care Provider Unavailable Encounter Details Date Type Department Care Team Description 08/28/2016 Hospital Encounter HX NO MAPPING Virginia Bernal M.D. [address] [place], [place] [phone] (Wo rk) Social History [...] do you attend muslim or Never 2021 islam services? Do you [...] 0 10/1305/06/2020 100 mg tablet daily. albuterol sulfate 90 Inhale 2 puffs [...] THOMAS LPN on August 30, 2016 11:51:29 POLITICAL CONSULTANT Patient was informed of normal results. He was also scheduled with a 3 month follow up cystoscopy. From: AILYN BERNAL MD To: Urology Nurse; Sent: 08/30/2016 11:27:50 POLITICAL CONSULTANT ! Show up: 08/30/2016 11:27:50 POLITICAL CONSULTANT Subject: Results Notification Actions: Notify patient of results Reminder Comments: bladder bx; no cancer. Arrange office cysto in 3 months, and PVP as already planned Results: Date Result Type Result Name 08/30/2016 9:34 Document - mdoc Surgical Pathology Report Source: [facility] POWERCHART Document Id: [id number] Electronically signed by Conversion, [facility] Assembler Dc Field Ring [id number] at 02/23/2017 12:07 AM CDT documented in this encounter Plan of Treatment Not on filedocumented as of this encounter Procedures Procedure Name Priority Date/Time Associated Diagnosis Comme nts SURGICAL PATHOLOGY Routine 08/28/2016 12:00 AM Re sults for this POLITICAL CONSULTANT procedure are i n the results section. SURGICAL PATHOLOGY Routine 08/28/2016 12:00 AM Re sults for this POLITICAL CONSULTANT procedure are i n the results section. documented in this encounter Results Pathology Surgical Pathology (08/28/2016 12:00 AM POLITICAL CONSULTANT) Specimen (Source) Anatomical Location Collection Method / Collectio n Time Received Time / Laterality Volume 08/28/2016 Narrative [facility] - 08/30/20 16 11:27 AM POLITICAL CONSULTANT Historical Provider LAB SURG PATH ORDERABLES Performing Organization Address City/State/ZIP Code Phon e Number [facility] NA Pathology Surgical Pathology (08/28/2016 12:00 AM POLITICAL CONSULTANT) Specimen (Source) Anatomical Location Collection Method / Collectio n Time Received Time / Laterality Volume 08/28/2016 Narrative [facility] - 08/30/20 16 11:27 AM POLITICAL CONSULTANT PATIENT IMAGES Choose the Image button to view related documents. Historical Provider LAB SURG PATH ORDERABLES Performing Organization Address [facility] Phon e Number [facility] NA documented in this encounter Visit Diagnoses Not on filedocumented in this encounter Additional Health Concerns Assessment Noted Time PHQ-9 Depression Total Score: 6 01/31/2015 12:28 PM CD T documented as of this encounter
--- OUTSIDE RECORDS SUMMARY | 2022-05-28 06:56 | XMS_ITS | Encounter Summary ---
:1945 Author Organization [facility] Address [address] [place] [address] Care Team Providers Name Role Phone Unavailable Primary Care Provider Unavailable Encounter Details Date Type Department Care Team Description 11/07/2016 Hospital Encounter HX [facility] UROLOGY Ailyn Bernal M.D. [address] [place] [address] (Wo rk) Social History Tobacco [...] do you attend mandaeism or Never 2021 episcopal services? Do you [...] Comments Blood Pressure 148/70 11/07/2016 9:46 AM COMPRESSOR HOUSE OPERATOR Pulse 72 11/07/2016 9:46 AM COMPRESSOR HOUSE OPERATOR Temperature - - Respiratory Rate 20 11/07/2016 9:46 AM COMPRESSOR HOUSE OPERATOR Oxygen Saturation - - Inhaled Oxygen [...] BERNAL MD On: 11/07/2016 10:19 AM Source: [employer] Document Id: [id number] RESSOR HOUSE OPERATOR documented in this encounter Miscellaneous Notes Miscellaneous - Ailyn Bernal M.D. - 11/12/2016 5:07 PM CST Results Notification Document Contains Addenda Addendum by RODERICK THOMAS LPN on November 12, 2016 17:25:14 COMPRESSOR HOUSE OPERATOR Patient was informed of normal results. From: AILYN BERNAL MD To: Urology Nurse; Sent: 11/12/2016 17:07:59 COMPRESSOR HOUSE OPERATOR ! Show up: 11/12/2016 17:07:59 COMPRESSOR HOUSE OPERATOR Subject: Results Notification Actions: Notify patient of results Reminder Comments: FISH is neg Results: Date Result Name Value 11/07/2016 10:38 FUROC Result Sum-[place] Negative 11/07/2016 10:38 FUROC Result-[place] See Comment 11/07/2016 10:38 FUROC Interp-[place] See Comment 11/07/2016 10:38 FUROC Reason for Ref-[place] See Comment 11/07/2016 10:38 FUROC Spec-[place] Varies 11/07/2016 10:38 FUROC Source-[place] Urine, NOS 11/07/2016 10:38 FUROC Released By-[place] See Comment [facility]: [facility] Document Id: [id number] Electronically signed by Conversion, [facility] Machine Operator Slitter Technician [id number] at 03/11/2017 12:06 AM CDT Miscellaneous - Raegan Toney APRN, R.N. - 11/08/2016 4:29 PM COMPRESSOR HOUSE OPERATOR Results Notification Document Contains Addenda Addendum by RODERICK THOMAS LPN on November 08, 2016 17:23:08 COMPRESSOR HOUSE OPERATOR Fish pending. From: RAEGAN TONEY APRN RN To: Urology Nurse; Sent: 11/08/2016 16:29:56 COMPRESSOR HOUSE OPERATOR ! Show up: 11/08/2016 16:29:56 COMPRESSOR HOUSE OPERATOR Subject: Results Notification Actions: Notify patient of results Reminder Comments: cyto negative Results: Date Result Type Result Name 11/08/2016 12:59 Document - DOC Non-COMMERCIAL TECHNICIAN Cytology Source: [facility] [employer] Document Id: [id number] Electronically signed by Conversion, [facility] Machine Operator Slitter Technician [id number] at 03/11/2017 12:06 AM CDT Reji - Ailyn Bernal M.D. - 11/07/2016 10:19 AM CST Ambulatory Patient Summary [facility] [address] [place] [id number] Visit Information Name: BETH COSTA [facility] Number: [id number] Current Date: 11/07/2016 10:19:49 Physicians [...] online form. Youll be asked for your [facility] number which you can find at the top of this document. Your Goals/Additional instructions: Source: [facility] POWERCHART Document Id: [id number] RESSOR HOUSE OPERATOR Miscellaneous - Ailyn Bernal M.D. - 11/07/2016 10:19 AM CST Ambulatory Discharge Medication List [address] [id number] Visit Information Name: BETH COSTA [facility] Number: [id number] Current Date: 11/07/2016 10:19:48 Attending [...] MD Signed On:07-NOV-2016 10:19:44 Additional Information: Source: [facility] POWERCHART Document Id: [id number] RESSOR HOUSE OPERATOR Miscellaneous - Janes Umanzor L.PMauroNMauro - 11/07/2016 9:46 AM CST Adult Sample Sawyer Intake/History Adult Sample Sawyer Intake/History Entered On: 11/07/2016 9:49 COMPRESSOR HOUSE OPERATOR Performed On: 11/07/2016 9:46 COMPRESSOR HOUSE OPERATOR by JANES UMANZOR LPN Intake Chief Complaint [...] air JANES UMANZOR LPN - 11/07/2016 9:46 COMPRESSOR HOUSE OPERATOR General Info Information Given By : Patient Preferred Communication Mode : Verbal Languages : Azerbaijani Is Patient Female and 13-50 no hysterectomy : No JANES UMANZOR LPN - 11/07/2016 9:46 COMPRESSOR HOUSE OPERATOR Subjective Pain Symptoms : No JANES UMANZOR LPN - 11/07/2016 9:46 COMPRESSOR HOUSE OPERATOR Dependent Habits Exposure to Tobacco Smoke : Other: quit in 1982 Smoking Status : Former smoker Tobacco 2A : Yes Tobacco Use/Currently Using : No Tobacco Use/Last 30 Days : No Tobacco Use/Last 12 months : No Tobacco Last Use/Year : 1982 JANES UMANZOR LPN - 11/07/2016 9:46 COMPRESSOR HOUSE OPERATOR Caffeine Use Grid Caffeine Use : Current Type : Chocolate, Coffee, Soft drinks Frequency : Daily JANES UMANZOR LPN - 11/07/2016 9:46 COMPRESSOR HOUSE OPERATOR Recreational Drug Use Grid Drug Use : None JANES UMANZOR LPN - 11/07/2016 9:46 COMPRESSOR HOUSE OPERATOR Source: [facility] POWERCHART Document Id: [id number] COMPRESSOR HOUSE OPERATOR!35 RESSOR HOUSE OPERATOR documented in this encounter Plan of Treatment Not on filedocumented as of this encounter Procedures Procedure Name Priority Date/Time Associated Comments Diagnosis UROVYSION (R) FOR Routine 11/07/2016 10:38 Result s for this BLADDER CANCER AM COMPRESSOR HOUSE OPERATOR procedure are in the results section. ZZPATHOLOGY NON-COMMERCIAL TECHNICIAN Routine 11/07/2016 9:06 AM Re sults for this CYTOLOGY COMPRESSOR HOUSE OPERATOR procedure are i n the results section. documented in this encounter Results UroVysion for Detection of Bladder Cancer, Urine (11/07/2016 10:38 AM COMPRESSOR HOUSE OPERATOR) [facility] gist Method Time Signature HXFUROC Result Negative POWERCHART [facility] HXFUROC See Comment POWERCHART Result-[place] Comment: RESULT: No evidence of urotheli al [...] Comment: RESULT: Evaluate for urothelial carcinoma. HXFUROC Spec-[place] Varies POWERCHART HXFUROC Source-[place] Urine, NOS POWERCHAR T HXFUROC Released By-[place] See Comment POW ERCHART Comment: RESULT: Miguelito Crowell M.D., Ph.D. Test Performed by: [facility] [place] [address] Natural Resource Technician: Jesus Louis II, M.D., Ph.D. Specimen (Source) Anatomical Collection Method Collection Time Re ceived Time Location / / Volume Laterality Urine 11/07/2016 10:38 AM COMPRESSOR HOUSE OPERATOR Ailyn Bernal M.D. LAB GENETIC TESTING Performing Organization Address City/State/ZIP Code Phon e Number POWERCHART ZZPATHOLOGY NON-COMMERCIAL TECHNICIAN CYTOLOGY (11/07/2016 9:06 AM COMPRESSOR HOUSE OPERATOR) Specimen (Source) Anatomical Collection Method Collection Time Re ceived Time Location / / Volume Laterality 11/07/2016 9:06 AM COMPRESSOR HOUSE OPERATOR Narrative [facility] - 11/08/2016 12:59 PM COMPRESSOR HOUSE OPERATOR [facility] [place] [address] [place], [place] ??[phone] Patient Name: BETH COSTA Patient ID #: [id number] Collected: 11/07/2016 Address: [facility]/State/Zip: [address] [place], [place] ??[phone] Received: Reported: 11/08/2016 11/08/2016 Soc. Sec. #: ?/Age/Sex 1945 (Age: 71) ??M Physician(s): Juana BERNAL MD Copy To: ? [facility] ?? [phone] [facility], ??[place] ??[address] CYTOPATHOLOGY NON-COMMERCIAL TECHNICIAN REPORT FINAL CYTOLOGIC DIAGNOSIS Urine-VOIDED: NEGATIVE FOR HIGH-GRADE UROTHELIAL CARCINOMA SATISFACTORY SPECIMEN FOR EVALUATION. Electronically Signed By [facility]/11/08/2016 Pato FARMER([facility]) SPECIMEN(S) RECEIVED: Urine-VOIDED CLINICAL HISTORY: HISTORY OF BLADDER CANCER GROSS DESCRIPTION: 2 CYTOSPINS PREPARED FROM 25 ML YELLOW A LCOHOL FIXED FLUID. Ailyn Bernal M.D. LAB PATHOLOGY/CYTOLOGY ORDER ELISHA Performing Organization Address City/[facility]/ZIP Code Phon e Number [facility] documented in this encounter Visit Diagnoses Not on filedocumented in this encounter Additional Health Concerns Assessment Noted Time PHQ-9 Depression Total Score: 6 01/31/2015 12:28 PM CD T documented as of this encounter
--- OUTSIDE RECORDS SUMMARY | 2022-05-28 06:56 | XMS_ITS | Encounter Summary ---
:1945 Author Organization [facility] Address [address] [place] [address] Care Team Providers Name Role Phone Unavailable Primary Care Provider Unavailable Encounter Details Date Type Department Care Team Description 11/07/2016 Hospital Encounter HX NO MAPPING Virginia Bernal M.D. [address] [place], [place] [phone] (Wo rk) Social History [...] do you attend methodist or Never 2021 sikhism services? Do you [...]
--- OUTSIDE RECORDS SUMMARY | 2022-05-28 06:56 | XMS_ITS | Encounter Summary ---
:1945 Author Organization [facility] Address [address] [place] [address] Care Team Providers Name Role Phone Unavailable Primary Care Provider Unavailable Encounter Details Date Type Department Care Team Description 06/04/2016 Hospital Encounter [facility]X [facility] NURSE Piero Hong i, M.D. [address] [place] [address] (Wo rk) Social History Tobacco [...] do you attend mosque or Never 2021 episcopal services? Do you [...] his surgery. B/P 131/67 Pulse 80 [facility] Document Id: [id number] Miscellaneous - Erica Morgan C.M.A. - 06/04/2016 10:01 AM CDT Ambulatory Vitals [...] Pressure Cuff Size : Large ERICA MORGAN [facility] - 06/04/2016 10:01 CDT Source: [facility] Depop Document Id: [id number] CDT!8 documented in this encounter Plan of Treatment Not on filedocumented as of this encounter Visit Diagnoses Not on filedocumented in this encounter Additional Health Concerns Assessment Noted Time PHQ-9 Depression Total Score: 6 01/31/2015 12:28 PM CD T documented as of this encounter
--- OUTSIDE RECORDS SUMMARY | 2022-05-28 06:56 | XMS_ITS | Encounter Summary ---
:1945 Author Organization [facility] Address [address] [place] [address] Care Team Providers Name Role Phone Unavailable Primary Care Provider Unavailable Encounter Details Date Type Department Care Team Description 05/27/2016 Hospital Encounter HX [facility] Ailyn Bernal M.D. [address] [place] [address] (Wo rk) Social History Tobacco [...] Bernal M.D. - 05/27/2016 9:27 AM CDT [id number] CHIEF COMPLAINT/REASON FOR VISIT bladder tumor. HISTORY [...] Ailyn Bernal M.D./phong cc: Piero Hinton M.D. [facility] in [address] [address] Electronically Signed By: AILYN BERNAL MD On: 06/11/2016 07:56 AM Source: [facility] MHSDOLBEYNONRADSYS Document Id: [id number] documented in this encounter Miscellaneous Notes Miscellaneous - Ailyn Bernal M.D. - 05/27/2016 11:40 AM CDT Ambulatory Patient Summary [facility] [address] [place] [id number] Visit Information Name: BETH COSTA [facility] Number: [id number] Current Date: [...] Appointments Date Time Location Provider 08/19/2016 08:15 [facility] Piero Roy MD 08/29/2016 08:15 [facility] [...] online form. Youll be asked for your [facility] number which you can find at the top of this document. Your Goals/Additional instructions: Source: [facility] POWERCHART Document Id: [id number] Miscellaneous - Ailyn Bernal M.D. - 05/27/2016 11:40 AM CDT Ambulatory Discharge Medication List [address] [id number] Visit Information Name: BETH COSTA [facility] Number: [id number] Visit Date: [...] MD Signed On:27-MAY-2016 11:40:45 Additional Information: Source: [facility] POWERCHART Document Id: [id number] Miscellaneous - Nayeli Nava CMauroMJeff. - 05/27/2016 10:31 AM CDT Care Coordination Message From: NAYELI NAVA [facility] To: PIERO ROJAS MD; Sent: 05/27/2016 10:31:13 CDT ! Subject: Care Coordination Message Patient was seen in [place], Urology. He is concerned about his blood pressure medication and whether or not it is necessary for him to continue taking it. He presents today a blood pressure of 98/56 and feeling light headed. Patient would like a call back from you or maybe a follow up appointment topossbly discontiue the medication or simply adjust the dosage. Please contact patient at [phone]. Source: [facility] POWERCH[facility] Document Id: [id number] Electronically signed by Karen [facility] Hospitals[facility] American Studies Professor [id number] at 02/23/2017 1:43 AM CDT Miscellaneous - [...] HAGER LPN - 05/27/2016 10:01 CDT [facility] Document Id: [id number] CDT!7 Miscellaneous - Becky Hager L.P.N. - 05/27/2016 9:39 AM CDT Adult Jet Ski Mechanic Intake/History Adult Jet Ski Mechanic Intake/History Entered On: 05/27/2016 9:39 CDT Performed [...] Preferred Communication Mode : Verbal Languages : Serbian Is Patient Female and [...] Juana SOLIS - 05/27/2016 9:39 CDT [facility]: [facility] Document Id: [id number] CDT!34 Miscellaneous - Ailyn Bernal M.D. - [...] if he should drive with his to [place], [place] about 200 miles away. Patient read in his instructions not to drive long distances and was wondering if this drive would effect his bladder biopsy at all. Source: [facility] Document Id: [id number] documented in this encounter Plan of Treatment Not on filedocumented as of this encounter Visit Diagnoses Not on filedocumented in this encounter Additional Health Concerns Assessment Noted Time PHQ-9 Depression Total Score: 6 01/31/2015 12:28 PM CD T documented as of this encounter
--- OUTSIDE RECORDS SUMMARY | 2022-05-28 06:56 | XMS_ITS | Encounter Summary ---
:1945 Author Organization [facility] Address [address] [place] [address] Care Team Providers Name Role Phone Unavailable Primary Care Provider Unavailable Encounter Details Date Type Department Care Team Description 08/29/2016 Hospital Encounter [facility]X [facility] Lo Rehman, FAROOQ, R.N. [address] [place] [address] (Wo rk) Social History Tobacco [...] do you attend mandaen or Never 2021 sikh services? Do you [...] Comments Blood Pressure 132/80 08/29/2016 10:45 AM MANAGER FUNCTIONAL Pulse 80 08/29/2016 10:45 AM MANAGER FUNCTIONAL Temperature - - Respiratory Rate - - [...] APRN, RN On: 09/12/2016 08:21 AM Source: [facility] MHSDOLBEYNONRADSYS Document Id: [id number] GER FUNCTIONAL documented in this encounter Miscellaneous Notes Miscellaneous - Raegan Rehman APRN, R.N. - 08/29/2016 11:22 AM MANAGER FUNCTIONAL Ambulatory Patient Summary [facility] [address] [place], [place] [id number] Visit Information Name: JONNATHAN COSTA [facility] Number: [id number] Current Date: 08/29/2016 11:22:32 Physicians Attending Provider: RAEGAN REHMAN APRN lease administration analyst Provider: PIERO ROJAS MD JONNATHAN COSTA has [...] if you dont have one. Go to [email or web address] and click on Create Your Account. Then, follow the directions to complete the online form. Youll be asked for your [facility] number which you can find at the top of this document. Your Goals/Additional instructions: Source: [facility] POWERCHART Document Id: [id number] GER FUNCTIONAL Miscellaneous - Raegan Rehman APRN, R.N. - 08/29/2016 11:22 AM MANAGER FUNCTIONAL Ambulatory Discharge Medication List [address] [id number] Visit Information Name: JONNATHAN COSTA [facility] Number: [id number] Current Date: 08/29/2016 11:22:31 Attending [...] RN Signed On:29-AUG-2016 11:22:17 Additional Information: Source: [facility] POWERCHART Document Id: [id number] GER FUNCTIONAL Miscellaneous - Prudence Peralta, L.P.N. - 08/29/2016 10:45 AM CST Adult Records And Tape Recordings Engineer Intake/History Adult Records And Tape Recordings Engineer Intake/History Entered On: 08/29/2016 10:47 MANAGER FUNCTIONAL Performed On: 08/29/2016 10:45 MANAGER FUNCTIONAL by PRUDENCE PERALTA LPN Intake Chief Complaint : Trial void Temperature Core : 36.6 DegC(Converted to: 97.9 DegF) Peripheral Pulse Rate : 80 /min Heart Rhythm : Regular Systolic Blood Pressure : 132 mmHg Diastolic Blood Pressure : 80 mmHg NIBP Mean : 97 mmHg BP Location : Left upper extremity Blood Pressure Cuff Size : Regular PRUDENCE PERALTA LPN - 08/29/2016 10:45 MANAGER FUNCTIONAL General Info Information Given By : Patient Preferred Communication Mode : Verbal Languages : Bulgarian Is Patient Female and 13-50 no hysterectomy : No PRUDENCE PERALTA LPN - 08/29/2016 10:45 MANAGER FUNCTIONAL Subjective Pain Symptoms : No PRUDENCE PERALTA LPN - 08/29/2016 10:45 MANAGER FUNCTIONAL Dependent Habits Exposure to Tobacco Smoke : Other: quit in 1982 Smoking Status : Former smoker Tobacco 2A : Yes Tobacco Use/Currently Using : No Tobacco Use/Last 30 Days : No Tobacco Use/Last 12 months : No Tobacco Last Use/Year : 1982 PRUDENCE PERALTA LPN - 08/29/2016 10:45 MANAGER FUNCTIONAL Caffeine Use Grid Caffeine Use : Current Type : Chocolate, Coffee, Soft drinks Frequency : Daily PRUDENCE PERALTA LPN - 08/29/2016 10:45 MANAGER FUNCTIONAL Recreational Drug Use Grid Drug Use : None PRUDENCE PERALTA LPN - 08/29/2016 10:45 MANAGER FUNCTIONAL Source: [facility] Document Id: [id number] MANAGER FUNCTIONAL!34 GER FUNCTIONAL Miscellaneous - Omi Blevins - 07/16/2016 11:01 AM CDT *General Message-panel management From: OMI BLEVINS LPN Sent: 07/16/2016 11:01:56 CDT Subject: *General Message-panel management Pt is due for fasting diabetic labs and [facility] will bring copies of results to upcoming pre-op appt. Source: [facility] POWERCHART Document Id: [id number] Electronically signed by Conversion, [facility] Utility Arborist [id number] at 02/23/2017 7:04 AM CDT documented in this encounter Plan of Treatment Not on filedocumented as of this encounter Visit Diagnoses Not on filedocumented in this encounter Additional Health Concerns Assessment Noted Time PHQ-9 Depression Total Score: 6 01/31/2015 12:28 PM CD T documented as of this encounter
--- OUTSIDE RECORDS SUMMARY | 2022-05-28 06:56 | XMS_ITS | Encounter Summary ---
:1945 Author Organization [facility] Address [address] [place] [address] Care Team Providers Name Role Phone Unavailable Primary Care Provider Unavailable Encounter Details Date Type Department Care Team Description 08/12/2016 Hospital Encounter HX [facility] Cesar Fernandes, URGENTCAR P.A.-C. [address] , [address] [phone] (Wo rk) Social History Tobacco Use Types [...] do you attend zoroastrian or Never 2021 tenriism services? Do you [...] Comments Blood Pressure 145/76 08/12/2016 10:41 AM AGRICULTURE EXTENSION SPECIALIST Pulse 85 08/12/2016 10:41 AM AGRICULTURE EXTENSION SPECIALIST Temperature - - Respiratory Rate 24 08/12/2016 10:41 AM AGRICULTURE EXTENSION SPECIALIST Oxygen Saturation - - Inhaled Oxygen Concentration - - Weight 109 kg (239 lb 10.2 oz) 08/12/2016 10:41 AM AGRICULTURE EXTENSION SPECIALIST Height - - Body Mass Index 30.75 [...] Brock P.A.-C. - 08/12/2016 9:45 AM CST [id number] CHIEF COMPLAINT/REASON FOR VISIT Productive cough, sinus pressure. HISTORY OF PRESENT ILLNESS This is a 71-year-old male who has had a productive cough for 2 months. He has home prednisone prescription that he gets from the [place] that he started taking his burst of [...] BROCK PA-C On: 08/13/2016 02:54 PM Source: [facility] MHSDOLBEYNONRADSYS Document Id: [id number] CULTURE EXTENSION SPECIALIST documented in this encounter Miscellaneous Notes Miscellaneous - Cesar Brock P.A.-C. - 08/12/2016 10:58 AM CST Ambulatory Patient Summary [facility] [address] [place], [place] [id number] Visit Information Name: JONNATHAN COSTA [facility] Number: [id number] Current Date: 08/12/2016 10:58:21 Physicians [...] directed x 5 day(s) [facility] [address] [place] [address] budesonide-formoterol (budesonide-formoterol 160 mcg-4.5 mcg/inh inhalation aerosol) [...] Date Time Location Provider 08/19[facility]2016 08[facility] 08/29/2016 10:15 [facility] [...] online form. Youll be asked for your [facility] number which you can find at the top of this document. Your Goals/Additional instructions: Source: [facility] POWERCHART Document Id: [id number] CULTURE EXTENSION SPECIALIST Miscellaneous - Cesar Brock P.A.-C. - 08/12/2016 10:58 AM CST Ambulatory Discharge Medication List [facility] [address] [place], [place] [id number] Visit Information Name: JONNATHAN COSTA [facility] Number: [id number] Current Date: 08/12/2016 10:58:20 Attending [...] directed x 5 day(s) New Routed to [facility] [address] [place] [address] budesonide-formoterol (budesonide-formoterol 160 mcg-4.5 mcg/inh [...] PA-C Signed On:12-AUG-2016 10:58:18 Additional Information: Source: [facility] POWERCHART Document Id: [id number] CULTURE EXTENSION SPECIALIST Miscellaneous - Opal Banda, L.P.N. - 08/12/2016 10:41 AM CST Adult Music Minister Intake/History Adult Music Minister Intake/History Entered On: 08/12/2016 10:46 AGRICULTURE EXTENSION SPECIALIST Performed On: 08/12/2016 10:41 AGRICULTURE EXTENSION SPECIALIST by OPAL BANDA FIELD RECORDER Intake Chief Complaint : Productive cough, clesar to light yellow, sinus pressure Onset of Symptoms : 2 months Ambulatory Intake Additional Information : T[facility], ithelped History of Agent [place] per patient Temperature Oral : 36.6 DegC(Converted [...] Weight Clinic : 108.7 kg OPAL BANDA [facility] - 08/12/2016 10:41 AGRICULTURE EXTENSION SPECIALIST General Info Information Given By : Patient Languages : Arabic Is Patient Female and 13-50 no hysterectomy : No OPAL BANDA [facility] - 08/12/2016 10:41 AGRICULTURE EXTENSION SPECIALIST Subjective Pain Symptoms : No OPAL BANDA [facility] 08/12/2016 10:41 AGRICULTURE EXTENSION SPECIALIST Dependent Habits Exposure to Tobacco Smoke : Other: quit in 1982 Smoking Status : Former smoker Tobacco 2A : Yes Tobacco Use/Currently Using : No Tobacco Use/Last 30 Days : No Tobacco Use/Last 12 months : No Tobacco Last Use/Year : 1982 OPAL BANDA [facility] - 08/12/2016 10:41 AGRICULTURE EXTENSION SPECIALIST Caffeine Use Grid Caffeine Use : Current Type : Chocolate, Coffee, Soft drinks Frequency : Daily OPAL BANDA [facility] - 08/12/2016 10:41 AGRICULTURE EXTENSION SPECIALIST Recreational Drug Use Grid Drug Use : None OPAL BANDA [facility] 08/12/2016 10:41 AGRICULTURE EXTENSION SPECIALIST Source: [place] Document Id: [id number] AGRICULTURE EXTENSION SPECIALIST!39 CULTURE EXTENSION SPECIALIST documented in this encounter Plan of Treatment Not on filedocumented as of this encounter Visit Diagnoses Not on filedocumented in this encounter Additional Health Concerns Assessment Noted Time PHQ-9 Depression Total Score: 6 01/31/2015 12:28 PM CD T documented as of this encounter
--- OUTSIDE RECORDS SUMMARY | 2022-05-28 06:56 | XMS_ITS | Encounter Summary ---
:1945 Author Organization [facility] Address [address] [place] [address] Care Team Providers Name Role Phone Unavailable Primary Care Provider Unavailable Encounter Details Date Type Department Care Team Description 10/07/2016 Hospital Encounter [facility]X [facility] Ailyn Bernal M.D. [address] [place] [address] (Wo rk) Social History Tobacco [...] do you attend mormon or Never 2021 methodist services? Do you [...] Comments Blood Pressure 132/70 10/07/2016 9:17 AM NOVELTY CANDY MAKER Pulse 88 10/07/2016 9:17 AM NOVELTY CANDY MAKER Temperature - - Respiratory Rate 20 10/07/2016 9:17 AM NOVELTY CANDY MAKER Oxygen Saturation - - Inhaled Oxygen [...] Bernal M.D. - 10/07/2016 9:01 AM CST [id number] CHIEF COMPLAINT/REASON FOR VISIT Lower urinary tract [...] BERNAL MD On: 10/07/2016 02:11 PM Source: [facility] MHSDOLBEYNONRADSYS Document Id: [id number] LTY CANDY MAKER documented in this encounter Miscellaneous Notes Miscellaneous - Ailyn Bernal M.D. - 10/07/2016 9:57 AM CST Ambulatory Patient Summary [facility] [address] [place], [place] [id number] Visit Information Name: JONNATHAN COSTA [facility] Number: [id number] Current Date: 10/07/2016 09:57:41 Physicians [...] if you dont have one. Go to [email or web address] and click on Create Your Account. Then, follow the directions to complete the online form. Youll be asked for your [facility] number which you can find at the top of this document. Your Goals/Additional instructions: Source: [facility] POWERCHART Document Id: [id number] LTY CANDY MAKER Miscellaneous - Ailyn Bernal M.D. - 10/07/2016 9:57 AM CST Ambulatory Discharge Medication List [facility] [address] [place], [place] [id number] Visit Information Name: JONNATHAN COSTA [facility] Number: [id number] Current Date: 10/07/2016 09:57:40 Attending [...] MD Signed On:07-OCT-2016 09:57:37 Additional Information: Source: [facility] POWERCHART Document Id: [id number] LTY CANDY MAKER Miscellaneous - Lester Barry, C.M.A. - 10/07/2016 9:21 AM CST Urology AUA/BPH Symptom Score Urology AUA/BPH Symptom Score Entered On: 10/07/2016 9:23 NOVELTY CANDY MAKER Performed On: 10/07/2016 9:21 NOVELTY CANDY MAKER by LESTER BARRY CMA Urology AUA/BPH Symptom [...] About Urinary Condition : Satisfied LESTER BARRY ICU RN - 10/07/2016 9:21 NOVELTY CANDY MAKER [facility] Document Id: [id number] NOVELTY CANDY MAKER!11 LTY CANDY MAKER Miscellaneous - Lester Barry, C.M.A. - 10/07/2016 9:17 AM CST Adult Belting And Webbing Inspector Intake/History Adult Belting And Webbing Inspector Intake/History Entered On: 10/07/2016 9:21 NOVELTY CANDY MAKER Performed On: 10/07/2016 9:17 NOVELTY CANDY MAKER by LESTER BARRY [facility] Intake Chief Complaint : Rck: s/p greenlight [...] Large LESTER BARRY CMA - 10/07/2016 9:17 NOVELTY CANDY MAKER General Info Information Given By : Patient Preferred Communication Mode : Verbal Languages : Telugu Is Patient Female and 13-50 no hysterectomy : No LESTER BARRY CMA - 10/07/2016 9:17 NOVELTY CANDY MAKER Subjective Pain Symptoms : No LESTER BARRY [facility] - 10/07/2016 9:17 NOVELTY CANDY MAKER Dependent Habits Exposure to Tobacco Smoke : Other: quit in 1982 Smoking Status : Former smoker Tobacco 2A : Yes Tobacco Use/Currently Using : No Tobacco Use/Last 30 Days : No Tobacco Use/Last 12 months : No Tobacco Last Use/Year : 1982 LESTER BARRY [facility] - 10/07/2016 9:17 NOVELTY CANDY MAKER Caffeine Use Grid Caffeine Use : Current Type : Chocolate, Coffee, Soft drinks Frequency : Daily LESTER BARRY [facility] - 10/07/2016 9:17 NOVELTY CANDY MAKER Recreational Drug Use Grid Drug Use : None LESTER BARRY [facility] - 10/07/2016 9:17 NOVELTY CANDY MAKER Source: [employer] Document Id: [id number] NOVELTY CANDY MAKER!34 LTY CANDY MAKER documented in this encounter Plan of Treatment Not on filedocumented as of this encounter Visit Diagnoses Not on filedocumented in this encounter Additional Health Concerns Assessment Noted Time PHQ-9 Depression Total Score: 6 01/31/2015 12:28 PM CD T documented as of this encounter
--- OUTSIDE RECORDS SUMMARY | 2022-05-28 06:56 | XMS_ITS | Encounter Summary ---
:1945 Author Organization [facility] Address [address] [place] [address] Care Team Providers Name Role Phone Unavailable Primary Care Provider Unavailable Encounter Details Date Type Department Care Team Description 08/29/2016 Hospital Encounter [facility]X [facility] Prasanna Bernal M.D. [address] [place] [address] (Wo rk) Social History Tobacco [...] do you attend rastafarian or Never 2021 christianity services? Do you [...]
--- OUTSIDE RECORDS SUMMARY | 2022-05-28 06:56 | XMS_ITS | Encounter Summary ---
:1945 Author Organization [facility] Address [address] [place] [address] Care Team Providers Name Role Phone Unavailable Primary Care Provider Unavailable Encounter Details Date Type Department Care Team Description 08/19/2016 Hospital Encounter HX NO MAPPING Ewa Alejandro M.D. [address], [place] [phone] (Wo rk) Social History [...] do you attend alevism or Never 2021 bahai services? Do you [...] Historical Provider Ser - 08/19/2016 11:59 PM EDGE STITCHER Coding Summary-Paper Based CODING DATE: 08/29/2016 FINAL [facility] STATUS: * Discharged to Home [...] ROSE Date Saved: 08/29/2016 07:37 am Source: [employer] Document Id: [id number] documented in this encounter Plan of Treatment Not on filedocumented as of this encounter Visit Diagnoses Not on filedocumented in this encounter Additional Health Concerns Assessment Noted Time PHQ-9 Depression Total Score: 6 01/31/2015 12:28 PM CD T documented as of this encounter
--- OUTSIDE RECORDS SUMMARY | 2022-05-28 06:56 | XMS_ITS | Encounter Summary ---
:1945 Author Organization [facility] Address [address] [place] [address] Care Team Providers Name Role Phone Unavailable Primary Care Provider Unavailable Encounter Details Date Type Department Care Team Description 08/19/2016 Hospital Encounter HX FBCV FAMILYPRA Piero Forbes M.D. [address] [place], [place] [phone] (Wo rk) Social History [...] do you attend sabianism or Never 2021 jew services? Do you [...] Comments Blood Pressure 126/64 08/19/2016 8:22 AM CABINET MAKER Pulse 96 08/19/2016 8:22 AM CABINET MAKER Temperature - - Respiratory Rate 16 08/19/2016 8:22 AM CABINET MAKER Oxygen Saturation - - Inhaled Oxygen Concentration - - Weight 107 kg (235 lb 10.8 oz) 08/19/2016 8:22 AM CABINET MAKER Height 189 cm (6' 2.41) 08/19/2016 8:22 AM CABINET MAKER Body Mass Index 29.93 08/19/2016 8:22 AM CABINET MAKER documented in this encounter Medications at [...] Weiss M.D. - 08/19/2016 8:06 AM CST [id number] Document Contains Addenda CHIEF COMPLAINT/ REASON FOR VISIT Proposed surgery date: 08/28/2016. Surgeon: Dr. Prasanna Luevano. Proposed surgery: Greenlight photo selective vaporization of the prostate. Location: [facility]. HISTORY OF PRESENT ILLNESS Beth is a [...] got full again. Beth was seen at [facility] in [place] on 08/12/2016 when he was treated for a URI with Azithromycin. He feels that he has improved but continues to have a productive cough. 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 Beth has been diagnosed with asthma and [...] diabetes. He has labs done at the OR. Jelena last A1C was on 07/17/2016 with [...] dysfunction. 6. Pulmonary symptomatology, diagnosis at the OR unclear, but probably some degree of COPD. 7. Status post left cataract surgery at the OR. 8. Tonsillectomy. 9. Obstructive sleep apnea, prescribed [...] smoke. 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 FAMILY HISTORY Mother had hypertension. There [...] Albuterol inhaler, as above. Will refer to [facility] for further evaluation. 5. Follow up. The patient will contact the clinic with any new or worsening symptoms. ADDENDUM 08/27/2016: Mr. Costa was re-evaluated today in clinic regarding his recent URI; he is back to his baseline. Heis cleared up to and including general anesthesia and may proceed with surgery as scheduled on 08/28/[address] Luevano at the [facility]. This document serves as a record of services personally performed by Piero Roy MD. It was created on their behalf by Lulu Roldan, a trained medical transcription supervisor. The creation of this record is based on the scribe's personal observations and the provider's statements to them. This document has been christie cked and approved by the attending provider. Piero Hinton M.D./livia cc: [place] [address] Electronically Signed By: PIERO WEISS MD On: 09/25/2016 11:39 PM Source: [facility] MHSDOLBEYNONRADSYS Document Id: [id number] NET MAKER documented in this encounter Miscellaneous Notes Telephone Encounter - Conversion, Historical Provider Ser - 08/27/2016 8:47 AM CST *Phone Message/Dr. Piero Roy Document Contains Addenda Addendum by JACQUIE HAMILTON LPN on August 27, 2016 13:03:58 CABINET MAKER patient added to todays schedule forfinal clearance for surgical proceedure scheduled for 08/28/2016 Addendum by JACQUIE HAMILTON LPN on August 27, 2016 9:03 CABINET MAKER Caller is: ( _ ) Patient ( _ ) Parent ( _ ) Spouse ( _ ) Child ( x ) Other: _jimmie Call back telephone number: _ Reason for Call: -_patient surgery is scheduled for tomorrow 08/28/2016 and patient needs final clearance for proceedure and insulin instructions for tonight Chief Complaint: _[facility] needs final clearance added to h&p due to uri patient had at last appointmentand fax to jimmie at [facility] scheduler conveyor moriah Disposition of Call/Coordination of Care: ( [...] day Callers preferred language: _ Was an sexologist used for this call? _ Other ( --_ ) Modified by and Electronically Signed by: JACQUIE HAMILTON LPN On: 08/27/2016 09:03 AM From: MCKINLEY MOSQUERA ([facility] Sewer Pipe Sorter) To: LAWSON Roy Nurse; Sent: 08/27/2016 08:47:46 CABINET MAKER Subject: *Phone Message/Dr. Piero Roy Caller is: ( ) Patient ( ) Mother ( ) Father ( ) Spouse ( ) Daughter ( ) Son ( ) Pharmacy ( x) Other: Jimmie from [facility] surgery scheduling Physician: Dr. Piero Roy Patient MRN #: Reason for Call: Message: Jimmie needs to speak to someone regarding this patients H & P. She needs Dr. Roy to add an adendum regarding a follow up appointment that was mentioned in the dictation. Please call her back at [phone] [facility]. Advice/Action: Source used: ( ) Verbalizes [...] back cell phone number ( ) Source: [facility] POWERCHART Document Id: [id number] NET MAKER Miscellaneous - Piero Weiss M.D. - 08/20/2016 2:06 PM CABINET MAKER Ambulatory Patient Summary [facility] [address] [place] [id number] Visit Information Name: BETH COSTA SERGIO [facility] Number: [id number] Current Date: 08/20/2016 14:06:33 Physicians [...] or shortness of breath. New Routed to [facility] [address] [place] [address] atorvastatin (atorvastatin 40 mg oral tablet) 1 [...] dont have one. Go to [email or web address] and click on Create Your Account. Then, follow the directions to complete the online form. Youll be asked for your [facility] number which you can find at the top of this document. Your Goals/Additional instructions: Begin taking the albuterol inhaler 2 puffs at least twice daily.Stop taking the Plavix one week prior to the scheduled procedure. Source: [facility] POWERCHART Document Id: [id number] NET MAKER Miscellaneous - Piero Weiss M.D. - 08/20/2016 2:06 PM CABINET MAKER Ambulatory Discharge Medication List [address] [id number] Visit Information Name: BETH COSTA [facility] Number: [id number] Current Date: 08/20/2016 14:06:32 Attending [...] or shortness of breath. New Routed to [facility] [address] [place] [address] atorvastatin (atorvastatin 40 mg oral tablet) 1 [...] MD Signed On:20-AUG-2016 14:06:28 Additional Information: Source: [facility] Giant SwarmCHART Document Id: [id number] NET MAKER Miscellaneous - Piero Weiss M.D. - 08/19/2016 9:06 AM CABINET MAKER Addendum by JACQUIE HAMILTON LPN on August 19, 2016 12:53:52 CABINET MAKER referal completed From: PIERO WEISS MD To: LAWSON Roy Nurse; Sent: 08/19/2016 09:06:40 CABINET MAKER Please arrange for pulmonary consult at [facility] to evaluate asthma. Source: [facility] [employer] Document Id: [id number] Miscellmaria e - Jacquie Hamilton, L.P.N. - 08/19/2016 8:25 AM CST Obstructive Sleep Apnea Obstructive Sleep Apnea Entered On: 08/19/2016 8:26 CABINET MAKER Performed On: 08/19/2016 8:25 CABINET MAKER by JACQUIE HAMILTON LPN AGNIESZKA Screening Known Obstructive Sleep Apnea : Patient diagnosed with AGNIESZKA; DOES NOT USE sleep machine AGNIESZKA Score : No qualifying data available. AGNIESZKA Results : No qualifying data available. JACQUIE HAMILTON LPN - 08/19/2016 8:25 CABINET MAKER Source: [facility] [employer] Document Id: [id number] CABINET MAKER!5 NET MAKER Miscellaneous - Jacquie Hamilton L.P.N. - 08/19/2016 8:22 AM CST Adult Trophy Assembler Intake/History Adult Trophy Assembler Intake/History Entered On: 08/19/2016 8:25 CABINET MAKER Performed On: 08/19/2016 8:22 CABINET MAKER by JACQUIE HAMILTON ACTUARIAL TECHNICIAN Intake Chief Complaint : pre op physical for green light proceedure to be completed on 08/28/[address] luevano at [facility] Temperature Core : 36.4 DegC(Converted to: [...] 44 cm(Converted to: 17 inch(es)) JACQUIE HAMILTON ACTUARIAL TECHNICIAN - 08/19/2016 8:22 CABINET MAKER General Info Information Given By : Patient Preferred Communication Mode : Verbal Languages : Telugu Is Patient Female and 13-50 no hysterectomy : No JACQUIE HAMILTON LPN - 08/19/2016 8:22 CABINET MAKER Subjective Pain Symptoms : Yes JACQUIE HAMILTON LPN - 08/19/2016 8:22 CABINET MAKER Pain Scale Pain Scale Verbal 0-10 : Open JACQUIE HAMILTON LPN - 08/19/2016 8:22 CABINET MAKER Pain Pain Assessment Grid Pain 1 Location : Abdomen Laterality : Other: lower abdomen cramping Intensity : 1 JACQUIE HAMILTON LPN - 08/19/2016 8:22 CABINET MAKER Dependent Habits Exposure to Tobacco Smoke : Other: quit in 1982 Smoking Status : Former smoker Tobacco 2A : Yes Tobacco Use/Currently Using : No Tobacco Use/Last 30 Days : No Tobacco Use/Last 12 months : No Tobacco Last Use/Year : 1982 JACQUIE HAMILTON LPN - 08/19/2016 8:22 CABINET MAKER Caffeine Use Grid Caffeine Use : Current Type : Chocolate, Coffee, Soft drinks Frequency : Daily JACQUIE HAMILTON ACTUARIAL TECHNICIAN - 08/19/2016 8:22 CABINET MAKER Recreational Drug Use Grid Drug Use : None JACQUIE HAMILTON ACTUARIAL TECHNICIAN - 08/19/2016 8:22 CABINET MAKER Source: [facility] POWERCHART Document Id: [id number] CABINET MAKER!52 NET MAKER documented in this encounter Plan of Treatment Not on filedocumented as of this encounter Procedures Procedure Name Priority Date/Time Associated Comments Diagnosis ALBUMIN, RANDOM, U Routine 08/19/2016 9:13 AM Res ults for this CABINET MAKER procedure are i n the results section. URINALYSIS WITH Routine 08/19/2016 9:13 AM Result s for this MICROSCOPIC CABINET MAKER procedure are i n the results section. BACTERIAL CULTURE, Routine 08/19/2016 9:13 AM Res ults for this AEROBIC, URINE CABINET MAKER procedure are in the results section. documented in this encounter Results (ABNORMAL) Microalbumin, Random, Urine (08/19/2016 9:13 AM CABINET MAKER) athologist Signature Creatinine, 113 40 - 278 POWERCHART Random, U MGDL HXU Albumin % 49.3 MGL POWERCHART Albumin/Creatin 44 (H) 0 - 17 MGG POWERCHART ine Ratio Specimen (Source) Anatomical Collection Method Collection Time Re ceived Time Location / / Volume Laterality Urine 08/19/2016 9:13 AM CABINET MAKER Piero Alejandro M.D. LAB URINE ORDERABLES Performing Organization Address City/State/ZIP Code Phon e Number POWERCHART (ABNORMAL) Urinalysis, Complete, Includes Microscopic (08/19/2016 9:13 AM CABINET MAKER) athologist Signature Clarity Clear Clear POWERCHART HXUr Color Yellow Colorless POWERCHART Specific 1.020 POWERCHART [place], POCT, U Comment: Reference Range Specific [place]: 1.000-1.035 pH, POCT, Urine 5.5 <5.0 POWERCHART [...] Laterality Urine, First 08/19/2016 9:13 AM Voided CABINET MAKER Piero Alejandro M.D. LAB URINE ORDERABLES Performing Organization Address City/State/ZIP Code Phon e Number POWERCHART Bacterial Culture, Aerobic, Urine (08/19/2016 9:13 AM CABINET MAKER) Analysis Performed At Patho logist Time Signature Bacterial POWERCHART Culture, Aerobic, Urine HXFinal No growth POWERCHART Specimen (Source) Anatomical Collection Method Collection Time Re ceived Time Location / / Volume Laterality Urine, First 08/19/2016 9:13 AM Voided CABINET MAKER Piero Alejandro M.D. LAB MICROBIOLOGY - GEN ERAL ORDERABLES Performing Organization Address City/State/ZIP Code Phon e Number POWERCHART documented in this encounter Visit Diagnoses Not on filedocumented in this encounter Additional Health Concerns Assessment Noted Time PHQ-9 Depression Total Score: 6 01/31/2015 12:28 PM CD T documented as of this encounter
--- OUTSIDE RECORDS SUMMARY | 2022-05-28 06:56 | XMS_ITS | Encounter Summary ---
:1945 Author Organization [facility] Address [address] [place] [address] Care Team Providers Name Role Phone Unavailable Primary Care Provider Unavailable Encounter Details Date Type Department Care Team Description 02/27/2017 Hospital Encounter HX NO MAPPING Virginia Bernal M.D. [address] [place], [place] [phone] (Wo rk) Social History [...] do you attend advent or Never 2021 congregation services? Do you [...]
--- OUTSIDE RECORDS SUMMARY | 2022-05-28 06:56 | XMS_ITS | Encounter Summary ---
:1945 Author Organization [facility] Address [address] [place] [address] Care Team Providers Name Role Phone Unavailable Primary Care Provider Unavailable Encounter Details Date Type Department Care Team Description 11/12/2016 Hospital Encounter HX [facility] Ronda Valladares APRN, C.N.P., M.S.N. [address] [place] [address] (Wo rk) Social History Tobacco Use Types [...] do you attend yazidi or Never 2021 hinduism services? Do you [...] Comments Blood Pressure 152/70 11/12/2016 1:46 PM PHARMACOVIGILANCE SCIENTIST Pulse 85 11/12/2016 1:46 PM PHARMACOVIGILANCE SCIENTIST Temperature - - Respiratory Rate - - Oxygen Saturation - - Inhaled Oxygen Concentration - - Weight 112 kg (246 lb 11.1 oz) 11/12/2016 1:46 PM PHARMACOVIGILANCE SCIENTIST Height - - Body Mass Index 31 10/14/2016 1:59 PM PHARMACOVIGILANCE SCIENTIST documented in this encounter Medications at Time [...] Brock P.A.-C. - 11/12/2016 1:28 PM CST [id number] CHIEF COMPLAINT/REASON FOR VISIT Suspect boil on [...] BROCK PA-C On: 11/13/2016 11:35 AM Source: [facility] MHSDOLBEYNONRADSYS Document Id: [id number] MACOVIGILANCE SCIENTIST documented in this encounter Miscellaneous Notes Miscellaneous - Dong Brock P.A.-C. - 11/12/2016 2:05 PM CST Ambulatory Patient Summary [place] [id number] [place] [id number] Visit Information Name: BETH COSTA [facility] Number: [id number] Current Date: 11/12/2016 14:05:57 [...] hours x 7 day(s) New Routed to [address] [address] clopidogrel (Plavix 75 mg oral tablet) 1 [...] if you dont have one. Go to [email or web address] and click on Create Your Account. Then, follow the directions to complete the online form. Youll be asked for your [facility] number which you can find at the top of this document. Your Goals/Additional instructions: Source: [facility] POWERCHART Document Id: [id number] MACOVIGILANCE SCIENTIST Miscellaneous - Dong Brock P.A.-C. - 11/12/2016 2:05 PM CST Ambulatory Discharge Medication List [facility] [address] [place] [id number] Visit Information Name: BETH COSTA [facility] Number: [id number] Current Date: 11/12/2016 14:05:56 [...] hours x 7 day(s) New Routed to [address] [address] clopidogrel (Plavix 75 mg oral [...] PA-C Signed On:12-NOV-2016 14:05:54 Additional Information: [facility] Document Id: [id number] MACOVIGILANCE SCIENTIST Miscellaneous - Debbie Estevez L.P.N. - 11/12/2016 1:46 PM CST Adult Civil Rights Representative Intake/History Adult Civil Rights Representative Intake/History Entered On: 11/12/2016 13:49 PHARMACOVIGILANCE SCIENTIST Performed On: 11/12/2016 13:46 PHARMACOVIGILANCE SCIENTIST by DEBBIE ESTEVEZ SCIENTIFIC INFORMATICS LEADER Intake Chief Complaint : suspects boil on [...] : 111.9 kg IRENE DEBBIE S [facility] - 11/12/2016 13:46 PHARMACOVIGILANCE SCIENTIST General Info Information Given By : Patient Preferred Communication Mode : Verbal Languages : Polish Is Patient Female and 13-50 no hysterectomy : No DEBBIE ESTEVEZ [facility] - 11/12/2016 13:46 PHARMACOVIGILANCE SCIENTIST Subjective Pain Symptoms : No DEBBIE ESTEVEZ LPN - 11/12/2016 13:46 PHARMACOVIGILANCE SCIENTIST Dependent Habits Exposure to Tobacco Smoke : Other: quit in 1982 Smoking Status : Former smoker Tobacco 2A : Yes Tobacco Use/Currently Using : No Tobacco Use/Last 30 Days : No Tobacco Use/Last 12 months : No Tobacco Last Use/Year : 1982 DEBBIE ESTEVEZ [facility] - 11/12/2016 13:46 PHARMACOVIGILANCE SCIENTIST Caffeine Use Grid Caffeine Use : Current Type : Chocolate, Coffee, Soft drinks Frequency : Daily DEBBIE ESTEVEZ LPN - 11/12/2016 13:46 PHARMACOVIGILANCE SCIENTIST Recreational Drug Use Grid Drug Use : None DEBBIE ESTEVEZ SCIENTIFIC INFORMATICS LEADER - 11/12/2016 13:46 PHARMACOVIGILANCE SCIENTIST [facility] Document Id: [id number] PHARMACOVIGILANCE SCIENTIST!36 MACOVIGILANCE SCIENTIST documented in this encounter Plan of Treatment Not on filedocumented as of this encounter Visit Diagnoses Not on filedocumented in this encounter Additional Health Concerns Assessment Noted Time PHQ-9 Depression Total Score: 6 01/31/2015 12:28 PM CD T documented as of this encounter
--- OUTSIDE RECORDS SUMMARY | 2022-05-28 06:56 | XMS_ITS | Encounter Summary ---
:1945 Author Organization [facility] Address [address] [place] [address] Care Team Providers Name Role Phone Unavailable Primary Care Provider Unavailable Encounter Details Date Type Department Care Team Description 08/27/2016 Hospital Encounter HX FBCV FAMILYPRA Ewa Forbes M.D. [address] [place], [place] [phone] (Wo rk) Social History [...] do you attend rastafari or Never 2021 lutheran services? Do you [...] Comments Blood Pressure 132/80 08/27/2016 2:28 PM READING RECOVERY TEACHER Pulse 84 08/27/2016 2:28 PM READING RECOVERY TEACHER Temperature - - Respiratory Rate 20 08/27/2016 2:28 PM READING RECOVERY TEACHER Oxygen Saturation - - Inhaled Oxygen Concentration - - Weight 109 kg (240 lb 8.4 oz) 08/27/2016 2:28 PM READING RECOVERY TEACHER Height 189 cm (6' 2.41) 08/27/2016 2:28 PM READING RECOVERY TEACHER Body Mass Index 30.54 08/27/2016 2:28 PM READING RECOVERY TEACHER documented in this encounter Medications at Time [...] Weiss M.D. - 08/27/2016 2:12 PM CST [id number] CHIEF COMPLAINT/ REASON FOR VISIT Recheck URI [...] on 08/28/[address] Bernal at the [facility]. 2. Type II diabetes mellitus. I recommended [...] behalf by Lulu Roldan, a trained medical assisting instructor. The creation of this record is based on the scribe's personal observations and the provider's statements to them. This document has been christie cked and approved by the attending provider. Ewa Hinton M.D./livia Electronically Signed By: EWA WEISS MD On: 09/04/2016 08:22 AM Source: [facility] MHSDOLBEYNJESSIESYS Document Id: [id number] ING RECOVERY TEACHER documented in this encounter Miscellaneous Notes Miscellaneous - Sugey Polanco C.M.A. - 08/27/2016 2:28 PM CST Adult Statistical Clerk Intake/History Adult Statistical Clerk Intake/History Entered On: 08/27/2016 14:31 READING RECOVERY TEACHER Performed On: 08/27/2016 14:28 READING RECOVERY TEACHER by SUGEY POLANCO [facility] Intake Chief Complaint : 1: final [...] Mass Index : 30.54 kg/m2 SUGEY POLANCO [facility] - 08/27/2016 14:28 READING RECOVERY TEACHER General Info Information Given By : Patient Languages : Latvian Is Patient Female and 13-50 no hysterectomy : No SUGEY POLANCO CMA - 08/27/2016 14:28 READING RECOVERY TEACHER Subjective Pain Symptoms : No SUGEY POLANCO CMA - 08/27/2016 14:28 READING RECOVERY TEACHER Dependent Habits Exposure to Tobacco Smoke : Other: quit in 1982 Smoking Status : Former smoker Tobacco 2A : Yes Tobacco Use/Currently Using : No Tobacco Use/Last 30 Days : No Tobacco Use/Last 12 months : No Tobacco Last Use/Year : 1982 SUGEY POLANCO [facility] - 08/27/2016 14:28 READING RECOVERY TEACHER Caffeine Use Grid Caffeine Use : Current Type : Chocolate, Coffee, Soft drinks Frequency : Daily SUGEY POLANCO [facility] - 08/27/2016 14:28 READING RECOVERY TEACHER Recreational Drug Use Grid Drug Use : None SUGEY POLANCO [facility] - 08/27/2016 14:28 READING RECOVERY TEACHER Source: [facility] [employer] Document Id: [id number] READING RECOVERY TEACHER!42 ING RECOVERY TEACHER documented in this encounter Plan of Treatment Not on filedocumented as of this encounter Visit Diagnoses Not on filedocumented in this encounter Additional Health Concerns Assessment Noted Time PHQ-9 Depression Total Score: 6 01/31/2015 12:28 PM CD T documented as of this encounter
--- OUTSIDE RECORDS SUMMARY | 2022-05-28 06:56 | XMS_ITS | Encounter Summary ---
:1945 Author Organization [facility] Address [address] [place] [address] Care Team Providers Name Role Phone Unavailable Primary Care Provider Unavailable Encounter Details Date Type Department Care Team Description 02/27/2017 Hospital Encounter HX [facility] Chase Luevano M.D. [address] [place], [place] [phone] (Wo rk) Social History [...] do you attend hindu or Never 2021 tenriism services? Do you [...] Result Name 02/28/2017 13:03 Document - DOC Non-INTEGRATION TECHNICIAN Cytology Source: [facility] POWERCHART Document Id: [id number] Electronically signed by Karen [facility] Slat Basket Top Maker [id number] at 04/01/2017 4:09 PM CDT Miscellaneous - Jacquie Hamilton, L.P.N. - 02/26/2017 9:42 AM CDT request for labs Document Contains Addenda Addendum by ANIBAL GOLD on February 27, 2017 07:33:03 CDT This is done. Addendum by JACQUIE HAMILTON LPN on February 26, 2017 17:19:40 CDT From: JACQUIE HAMILTON LPN ([facility] Nurse) To: [employer]; Sent: 02/26/2017 17:19:40 CDT ! Subject: FW: request for labs Addendum by PIERO ROJAS MD on February 26, 2017 17:17:25 CDT From: PIERO ROJAS MD To: [facility] Nurse; Sent: 02/26/2017 17:17:25 CDT Subject: RE: request for labs I did order fasting labs From: JACQIUE HAMILTON LPN ([facility] Nurse) To: PIERO ROJAS MD; Sent: 02/26/2017 09:42:06 CDT ! Subject: request for labs Spoke with: ( _x ) Patient ( _ ) Parent ( _ ) Spouse ( _ ) Child ( ) Other: _ Call back telephone number: [phone]_ Reason for Call: -_request for labs Chief [...] mail (if applicable) Source/Reference used (if applicable): alcohol rubber lynn_ OK to leave message on voice mail? yes_ OK to send message via patient portal? no_ Patient told to expect return call: ( x_ ) today ( _ ) tomorrow ( _ ) next work day Callers preferred language for Healthcare discussion: english_ Was an switch operators supervisor used for this call? _no Other ( --_ ) Source: [facility] [employer] Document Id: [id number] Electronically signed by Conversion, [facility] Slat Basket Top Maker [id number] at 04/01/2017 4:09 PM CDT documented in this encounter Plan of Treatment Not on filedocumented as of this encounter Procedures Procedure Name Priority Date/Time Associated Comments Diagnosis ZZPATHOLOGY NON-INTEGRATION TECHNICIAN Routine 02/27/2017 9:09 AM Re sults for this CYTOLOGY CDT procedure are i n the results section. documented in this encounter Results ZZPATHOLOGY NON-INTEGRATION TECHNICIAN CYTOLOGY (02/27/2017 9:09 AM CDT) Specimen (Source) Anatomical Collection Method Collection Time Re ceived Time Location / / Volume Laterality 02/27/2017 9:09 AM CDT Narrative [facility] - 02/28/2017 1:03 PM CDT [facility] [place] [address] [place] [address] ??[phone] Patient Name: BETH COSTA Patient ID #: [id number] Collected: 02/27/2017 Address: [facility]/State/Zip: [address] [place], [place] ??[id number] Received: Reported: 02/28/2017 02/28/2017 Soc. Sec. #: ?/Age/Sex 1 (Age: 71) ??M Physician(s): Juana LUEVAON MD Copy To: ? [facility] ??[id number] [address] [place] [address], ??[place] ??[id number] CYTOPATHOLOGY NON-INTEGRATION TECHNICIAN REPORT FINAL CYTOLOGIC DIAGNOSIS Urine-VOIDED: NEGATIVE FOR HIGH-GRADE UROTHELIAL CARCINOMA SATISFACTORY SPECIMEN FOR EVALUATION. Electronically Signed By mpg/02/28/2017 XAVI NEVILLE MD [facility] [place] CT(ASCP) SPECIMEN(S) RECEIVED: Urine-VOIDED CLINICAL HISTORY: HISTORY [...]
--- OUTSIDE RECORDS SUMMARY | 2022-05-28 06:57 | XMS_ITS | Encounter Summary ---
:1945 Author Organization [facility] Address [address] [place] [address] Care Team Providers Name Role Phone Unavailable Primary Care Provider Unavailable Encounter Details Date Type Department Care Team Description 11/21/2015 Hospital Encounter HX [facility]ILY[facility] Piero Moya i, M.D. [address] [place] [address] (Wo rk) Social History Tobacco [...] do you attend buddhism or Never 2021 catholic services? Do you [...] Comments Blood Pressure 132/70 11/21/2015 3:48 PM PROPELLER LAYOUT WORKER Pulse 72 11/21/2015 3:48 PM PROPELLER LAYOUT WORKER Temperature - - Respiratory Rate - - Oxygen Saturation - - Inhaled Oxygen Concentration - - Weight 112 kg (247 lb 5.7 oz) 11/21/2015 3:48 PM PROPELLER LAYOUT WORKER Height - - Body Mass Index 30.76 01/31/2015 9:26 AM CDT documented in this encounter Medications at Time of Discharge Medication Sig Dispensed Refills Start Date End Date insulin glargine Inject 20 Units under 0 [...] Weiss M.D. - 11/21/2015 3:43 PM CST [id number] REVISON HISTORY November 24, 2015 at 3:55 [...] WEISS MD On: 11/29/2015 12:00 AM Source: [facility] MHSDOLBEYNONRADSYS Document Id: [id number] ELLER LAYOUT WORKER documented in this encounter Nursing Notes Kitty Bailey L.P.N. - 05/03/2016 1:24 PM CDT diagnostics notified [facility]/diagnostics that creatnin level from this mornings draw was 1.6 again and verified that they were aware that low dose contrast dye was going to be used Electronically Signed By: KITTY BAILEY LPN On: 05/03/2016 01:27 PM Source: [facility] POWERCHART Document Id: [id number] documented in this encounter Miscellaneous Notes Telephone Encounter - Kitty Bailey L.PMauroNMauro - 05/02/2016 8:58 AM CDT *Phone Message Document Contains Addenda Addendum by KITTY BAILEY LPN on May 02, 2016 14:02:10 CDT From: KITTY BAILEY LPN ([facility] Nurse) To: PIERO WEISS MD; Sent: 05/02/2016 14:02:10 CDT Subject: FYI Addendum by KITTY BAILEY LPN on May 02, 2016 14:01:28 CDT notified Diallo/ the CT urogram is scheduled for 05/03 at [facility] with a 2:45 arrival and 3pm apptset. advised Beth to hydrate well today per Dr. WOO and redo labs Fri morning and again on Mon ... Addendum by KITTY BAILEY LPN on May 02, 2016 13:27:08 CDT From: KITTY BAILEY LPN ([facility] Nurse) To: PIERO WEISS MD; Sent: 05/02/2016 13:27:08 CDT Subject: FW: *Phone Message Addendum by DEONDREANDRIY on May 02, 2016 13:09:36 CDT Diallo () called - Beth's phone isn't working so they want you to call her phone regarding the CT scan order - [phone] Addendum by HUSEYIN GASPAR LPN on May 02, 2016 11:27:03 CDT From: HUSEYIN GASPAR LPN [facility]; Sent: 05/02/2016 11:27:03 CDT Subject: RE: *Phone Message Per Dr.Alex Bernal. Patient should be notified to hydrate well and then recheck creatinine. From: KITTY BAILEY LPN ([facility] Nurse) To: HUSEYIN GASPAR LPN; Sent: 05/02/2016 [...] back cell phone number ( ) Source: [facility] POWERCHART Document Id: [id number] Electronically signed by Conversion, [facility] Furnace Cleaner [id number] at 02/22/2017 8:50 AM CDT Miscellaneous - Piero Weiss M.D. - 11/22/2015 11:43 PM PROPELLER LAYOUT WORKER Ambulatory Patient Summary [address] [id number] Visit Information Name: BETH COSTA [facility] Number: [id number] Current Date: 11/22/2015 [...] if you dont have one. Go to [email or web address] and click on Create Your Account. Then, follow the directions to complete the online form. Youll be asked for your [facility] number which you can find at the top of this document. Your Goals/Additional instructions: Source: [facility] POWERCHART Document Id: [id number] ELLER LAYOUT WORKER Miscellaneous - Piero Weiss M.D. - 11/22/2015 11:43 PM PROPELLER LAYOUT WORKER Ambulatory Discharge Medication List [address] [id number] Visit Information Name: BETH COSTA [facility] Number: [id number] Visit Date: 11/22/2015 [...] MD Signed On:22-NOV-2015 23:43:20 Additional Information: [facility] Document Id: [id number] ELLER LAYOUT WORKER Miscellaneous - Steffany Ruelas L.P.N. - 11/21/2015 3:48 PM CST Adult Securities Analyst Intake/History Adult Securities Analyst Intake/History Entered On: 11/21/2015 15:51 PROPELLER LAYOUT WORKER Performed On: 11/21/2015 15:48 PROPELLER LAYOUT WORKER by STEFFANY RUELAS LPN Intake Chief Complaint [...] kg STEFFANY RUELAS LPN - 11/21/2015 15:48 PROPELLER LAYOUT WORKER General Info Information Given By : Patient Preferred Communication Mode : Verbal Languages : Peruvian Is Patient Female and 13-50 no hysterectomy : No STEFFANY RUELAS LPN - 11/21/2015 15:48 PROPELLER LAYOUT WORKER Subjective Pain Symptoms : No STEFFANY RUELAS LPN - 11/21/2015 15:48 PROPELLER LAYOUT WORKER Dependent Habits Exposure to Tobacco Smoke : Other: quit 40 years ago Smoking Status : Former smoker Tobacco 2A : Yes Tobacco Use/Currently Using : No Tobacco Use/Last 30 Days : No Tobacco Use/Last 12 months : No STEFFANY RUELAS LPN - 11/21/2015 15:48 PROPELLER LAYOUT WORKER Caffeine Use Grid Caffeine Use : Current Type : Coffee Frequency : Daily STEFFANY RUELAS LPN - 11/21/2015 15:48 PROPELLER LAYOUT WORKER Recreational Drug Use Grid Drug Use : None STEFFANY RUELAS LPN - 11/21/2015 15:48 PROPELLER LAYOUT WORKER Source: [facility] POWERCHART Document Id: [id number] PROPELLER LAYOUT WORKER!35 ELLER LAYOUT WORKER documented in this encounter Plan of Treatment Not on filedocumented as of this encounter Visit Diagnoses Not on filedocumented in this encounter Additional Health Concerns Assessment Noted Time PHQ-9 Depression Total Score: 6 01/31/2015 12:28 PM CD T documented as of this encounter
--- OUTSIDE RECORDS SUMMARY | 2022-05-28 06:57 | XMS_ITS | Encounter Summary ---
:1945 Author Organization [facility] Address [address] [place] [address] Care Team Providers Name Role Phone Unavailable Primary Care Provider Unavailable Encounter Details Date Type Department Care Team Description 11/23/2015 Hospital Encounter HX [facility] NEUROLOGY Mari Lala M.D., M.P.H. [address] [place] [address] (Wo rk) Social History Tobacco [...] you attend latter day or Never 2021 anabaptism services? Do you [...] Comments Blood Pressure 138/70 11/23/2015 2:15 PM PLATE AND FRAME FILTER OPERATOR Pulse 72 11/23/2015 2:15 PM PLATE AND FRAME FILTER OPERATOR Temperature - - Respiratory Rate - - Oxygen Saturation - - Inhaled Oxygen Concentration - - Weight 112 kg (245 lb 13 oz) 11/23/2015 2:15 PM PLATE AND FRAME FILTER OPERATOR Height - - Body Mass Index 30.56 [...] M.D., M.P.H. - 11/23/2015 1:14 PM CST [id number] CHIEF COMPLAINT/REASON FOR VISIT Stroke. HISTORY OF [...] MD MPH On: 11/24/2015 04:22 PM Source[facility] Document Id: [id number] E AND FRAME FILTER OPERATOR documented in this encounter Miscellaneous Notes Miscellaneous - Francisca Lala M.D., M.P.H. - 11/29/2015 8:34 AM CST RE: *The Coding Query From: FRANCISCA LALA MD MPH To: LAUREL RIOS; Sent: 11/29/2015 08:34:59 PLATE AND FRAME FILTER OPERATOR Subject: RE: *The Coding Query Done, thanks and sorry From: LAUREL RIOS To: FRANCISCA LALA MD MPH; Sent: 11/28/2015 14:08:48 PLATE AND FRAME FILTER OPERATOR Subject: *The Coding Query Hello, Missing OV charges for the patient above. DOS: 11/23/2015 Please make sure to Uncheck the box, Save To Chart, so that this message is not saved into the patients chart when replying. Thank you, Laurel Rios, [facility], CMRS Revenue Recognition-Coding Source: [facility] KahunaCHART Document Id: [id number] Miscellaneous - Natalee Plunkett, L.P.N. - 11/23/2015 2:15 PM CST Adult Activity Aid Intake/History Adult Activity Aid Intake/History Entered On: 11/23/2015 14:21 PLATE AND FRAME FILTER OPERATOR Performed On: 11/23/2015 14:15 PLATE AND FRAME FILTER OPERATOR by NATALEE PLUNKETT LPN Intake Chief Complaint [...] kg NATALEE PLUNKETT LPN - 11/23/2015 14:15 PLATE AND FRAME FILTER OPERATOR General Info Information Given By : Patient, Spouse, Other: 's name is Diallo Languages : Belarusian Is Patient Female and 13-50 no hysterectomy : No NATALEE PLUNKETT LPN - 11/23/2015 14:15 PLATE AND FRAME FILTER OPERATOR Subjective Pain Symptoms : No NATALEE PLUNKETT LPN - 11/23/2015 14:15 PLATE AND FRAME FILTER OPERATOR Dependent Habits Exposure to Tobacco Smoke : Other: quit 40 years ago Smoking Status : Former smoker Tobacco 2A : Yes Tobacco Use/Currently Using : No Tobacco Use/Last 30 Days : No Tobacco Use/Last 12 months : No NATALEE PLUNKETT LPN - 11/23/2015 14:15 PLATE AND FRAME FILTER OPERATOR Caffeine Use Grid Caffeine Use : Current Type : Coffee Frequency : Daily NATALEE PLUNKETT LPN - 11/23/2015 14:15 PLATE AND FRAME FILTER OPERATOR Recreational Drug Use Grid Drug Use : None NATALEE PLUNKETT LPN - 11/23/2015 14:15 PLATE AND FRAME FILTER OPERATOR [facility] Document Id: [id number] PLATE AND FRAME FILTER OPERATOR!33 E AND FRAME FILTER OPERATOR documented in this encounter Plan of Treatment Not on filedocumented as of this encounter Visit Diagnoses Not on filedocumented in this encounter Additional Health Concerns Assessment Noted Time PHQ-9 Depression Total Score: 6 01/31/2015 12:28 PM CD T documented as of this encounter
--- OUTSIDE RECORDS SUMMARY | 2022-05-28 06:57 | XMS_ITS | Encounter Summary ---
:1945 Author Organization [facility] Address [address] [place] [address] Care Team Providers Name Role Phone Unavailable Primary Care Provider Unavailable Encounter Details Date Type Department Care Team Description 05/03/2016 Hospital Encounter HX [facility] FBHB LAB Piero Grier M.D. [address] [place], [place] [phone] (Wo rk) Social History [...] do you attend yazidi or Never 2021 amish services? Do you [...] report from 8-5 is poor quality. Source: [facility] Document Id: [id number] Electronically signed by Conversion, [facility] Flexographic Press Helper [id number] at 02/23/2017 3:20 AM CDT documented in [...] MGDL HXeGFR (MDRD) 43 (L) >=60 POWERCHART [id number] eGFR 52 (L) >=60 POWERCHART Black/ [id number] Tristanian Specimen (Source) Anatomical Collection Method Collection Time [...]
--- OUTSIDE RECORDS SUMMARY | 2022-05-28 06:57 | XMS_ITS | Encounter Summary ---
:1945 Author Organization [facility] Address [address] [place] [address] Care Team Providers Name Role Phone Unavailable Primary Care Provider Unavailable Encounter Details Date Type Department Care Team Description 11/22/2015 Hospital Encounter HX [facility] Ewa Marte M.D. [address] [place], [place] [phone] (Wo rk) Social History [...] do you attend gnosticism or Never 2021 gnosticism services? Do you [...]
--- OUTSIDE RECORDS SUMMARY | 2022-05-28 06:57 | XMS_ITS | Encounter Summary ---
:1945 Author Organization [facility] Address [address] [place] [address] Care Team Providers Name Role Phone Unavailable Primary Care Provider Unavailable Encounter Details Date Type Department Care Team Description 04/29/2016 Hospital Encounter HX [facility] FBHB LAB Piero Grier M.D. [address] [place], [place] [phone] (Wo [...] do you attend buddhism or Never 2021 yazidism services? Do you [...] been established. Patient was encouraged to contact [facility] radiology scheduling tomorrow to schedule CT Urogram ordered by Dr. Roy. Source: [employer] Document Id: [id number] Miscellaneous - Prudence Peralta L.P.N. - 05/01/2016 5:17 PM CDT *General Message From: PRUDENCE PERALTA LPN ( Urology Nurse) Sent: 05/01/2016 17:17:51 CDT Subject: *General Message Referral request recieved by PSA to schedule patient with Dr. Luevano for evaluation of hematuria. Phone conversation with Marti nurse for Dr. Lawson . Marti will check if orders sent to [facility] for CT urogram and if patient has had creatinine completed. Marti notified that patient can be scheduled for Urology evaluation as soon as imaging is completed if Urology is notifiesd when Ct will be completed. Source: [employer] Document Id: [id number] Electronically signed by [employer], [employer] Delivery Engineer [id number] at 02/23/2017 3:20 AM CDT Piero Otoole [...] CDT From: MARTI SANCHEZ LPN To: PIERO WIESS MD; Sent: 05/01/2016 15:16:23 CDT ! Subject: [...] Has the CT urogram been scheduled? Source: [facility] POWERCHART Document Id: [id number] Electronically signed by Karen [facility] Psychiatric Centersarita Delivery Engineer [id number] at 02/23/2017 3:20 AM CDT Miscellaneous - [...] to the urine done this morning. Source: [facility] POWERCHART Document Id: [id number] documented in this encounter Plan of Treatment Not on filedocumented as of this encounter Procedures Procedure Name Priority Date/Time Associated Comments Diagnosis ZZPATHOLOGY NON-PRODUCT MGR Routine 04/29/2016 8:58 AM Re sults for [...] section. documented in this encounter Results ZZPATHOLOGY NON-PRODUCT MGR CYTOLOGY (04/29/2016 8:58 AM CDT) Specimen (Source) Anatomical Collection Method Collection Time Re ceived Time Location / / Volume Laterality 04/29/2016 8:58 AM CDT Narrative [facility] LAB - 04/30/2016 11:14 AM CDT [facility] [address] [place] [address] ??[phone] Patient Name: JONNATHAN COSTA Patient ID #: [id number] Collected: 04/29/2016 Address: [facility]/State/Zip: [address] [place], [place] ??[id number] Received: Reported: 04/30/2016 04/30/2016 Soc. Sec. #: ?/Age/Sex 1 (Age: 70) ??M Physician(s): IRENA HERNANDEZ MD Copy To: ? [facility] ??[id number] [address] [facility], ??[place] ??[address] CYTOPATHOLOGY NON-PRODUCT MGR REPORT FINAL CYTOLOGIC DIAGNOSIS Urine-VOIDED: DIAGNOSIS ATYPICAL UROTHELIAL CELLS CONSISTENT WIT H INFLAMMATION, CALCULUS, RECENT INSTRUMENTATION OR LOW GRADE PAPILLARY LESION. SATISFACTORY SPECIMEN FOR EVALUATION. Electronically Signed By [facility]/04/30/2016 JOVANNY LACY M.D. [facility](ASCP) SPECIMEN(S) RECEIVED: Urine-VOIDED CLINICAL HISTORY: GROSS HEMATURIA GROSS DESCRIPTION: 2 CYTOSPINS PREPARED FROM 10 ML OF CLOUD Y PALE YELLOW FLUID. Piero Alejandro M.D. LAB PATHOLOGY/CYTOLOGY ORDERABLES Performing Organization Address City/[facility]/ZIP Code Phon e Number [facility] HXUR % DYSMORPHIC RBC (04/29/2016 8:46 AM CDT) P athologist Signature Dysmorphic RBC <=25 <=25 POWERCHART Specimen Anatomical Collection Method Collection Time Receive d Time (Source) Location / / Volume Laterality Urine, First 04/29/2016 8:46 AM 6 8:46 Voided CDT AM CDT Piero Alejandro M.D. LAB HISTORICAL ORDERS Performing Organization Address City/[facility] Code Phon e Number POWERCHART (ABNORMAL) Urinalysis, Complete, Includes Microscopic (04/29/2016 8:46 AM CDT) Patholo gist Method Time Signature Clarity Clear Clear POWERCHART HXUr Color Yellow Colorless POWERCHART Specific 1.020 POWERCHART [place], POCT, U pH, POCT, Urine 5.5 <5.0 [...] M.D. LAB URINE ORDERABLES Performing Organization Address City/[facility]/ZIP Code Phon e Number POWERCHART Bacterial [...]
--- OUTSIDE RECORDS SUMMARY | 2022-05-28 06:57 | XMS_ITS | Encounter Summary ---
:1945 Author Organization [facility] Address [address] [place] [address] Care Team Providers Name Role Phone Unavailable Primary Care Provider Unavailable Encounter Details Date Type Department Care Team Description 08/02/2015 Hospital Encounter HX [facility] FB LAB Ewa Grier M.D. [address] [place], [place] [phone] (Wo rk) Social [...] do you attend evangelical or Never 2021 mandaeism services? Do you [...] 7:28 AM Re sults for this HORMONE-SENSITIVE LINEN ATTENDANT procedure are in (S-TSH) the results section. documented in this encounter Results (ABNORMAL) Thyroid-Stimulating Hormone-Sensitive (s-TSH) (08/02/2015 7:28 AM LINEN ATTENDANT) P athologist Signature TSH 4.43 (H) 0.27 - POWERCHART (Thyrotropin) 4.20 MIUL Specimen (Source) Anatomical Collection Method Collection Time Re ceived Time Location / / Volume Laterality Blood 08/02/2015 7:28 AM LINEN ATTENDANT Ewa Alejandro M.D. LAB BLOOD ADD-ON Performing Organization Address City/State/ZIP Code Phon e Number POWERCHART documented in this encounter Visit Diagnoses Not on filedocumented in this encounter Additional Health Concerns Assessment Noted Time PHQ-9 Depression Total Score: 6 01/31/2015 12:28 PM CD T documented as of this encounter
--- OUTSIDE RECORDS SUMMARY | 2022-05-28 06:57 | XMS_ITS | Encounter Summary ---
:1945 Author Organization [facility] Address [address] [place] [address] Care Team Providers Name Role Phone Unavailable Primary Care Provider Unavailable Encounter Details Date Type Department Care Team Description 04/29/2016 Hospital Encounter HX NO MAPPING Ewa Alejandro M.D. [address] [place], [place] [phone] (Wo rk) Social History [...]
--- OUTSIDE RECORDS SUMMARY | 2022-05-28 06:57 | XMS_ITS | Encounter Summary ---
:1945 Author Organization [facility] Address [address] [place] [address] Care Team Providers Name Role Phone Unavailable Primary Care Provider Unavailable Encounter Details Date Type Department Care Team Description 05/02/2016 Hospital Encounter HX [facility] NEUROLOGY Mari Lala M.D., M.P.H. [address] [place] [phone] (Wo rk) Social History Tobacco [...] M.D., M.P.H. - 05/02/2016 8:00 AM CDT [id number] CHIEF COMPLAINT/REASON FOR VISIT Disequilibrium. HISTORY OF [...] MD MPH On: 05/03/2016 03:33 PM Source: [facility] MHSDOLBEYNONRADSYS Document Id: [id number] documented in this encounter Nursing Notes Natalee [...] PLUNKETT LPN On: 04/05/2016 11:24 AM Source: [facility] POWERCHART Document Id: [id number] documented in this encounter Miscellaneous Notes Miscellaneous [...] well, then lab again on Friday Source: [facility] POWERCHART Document Id: [id number] Miscellaneous - Becky Banuelos L.P.NMauro - 05/02/2016 8:09 AM CDT Adult Director Of National Sales Intake/History Adult Director Of National Sales Intake/History Entered On: 05/02/2016 8:14 CDT Performed [...] Information Given By : Patient Languages : Venezuelan Is Patient Female and 13-50 no hysterectomy [...] : Coffee Frequency : Daily BECKY BANUELOS PRECISE WINDER - 05/02/2016 8:09 CDT Recreational Drug Use Grid Drug Use : None BECKY BANUELOS PRECISE WINDER - 05/02/2016 8:09 CDT [facility] Document Id: [id number] CDT!34 Miscellaneous - Piero Weiss M.D. - 04/28/2016 10:53 PM CDT Jonnathan's called with concerns about gross hematuria. He is not having dysuria or any other symptoms. He will submit a urine sample for UA/UC. If negative he will need further work up. [facility] Document Id: [id number] documented in this encounter Plan of Treatment Not on filedocumented as of this encounter Visit Diagnoses Not on filedocumented in this encounter Additional Health Concerns Assessment Noted Time PHQ-9 Depression Total Score: 6 01/31/2015 12:28 PM CD T documented as of this encounter
--- OUTSIDE RECORDS SUMMARY | 2022-05-28 06:57 | XMS_ITS | Encounter Summary ---
:1945 Author Organization [facility] Address [address] [place] [address] Care Team Providers Name Role Phone Unavailable Primary Care Provider Unavailable Encounter Details Date Type Department Care Team Description 05/09/2016 Hospital Encounter HX NO MAPPING Virginia Bernal M.D. [address] [place], [place] [phone] (Wo rk) Social History [...] do you attend gnosticist or Never 2021 druze services? Do you [...] Coding Summary-Paper Based CODING DATE: 05/20/2016 FINAL [facility] STATUS: * Discharged [...] TREVIZO Date Saved: 05/20/2016 10:14 am Source: [employer] Document Id: [id number] documented in this encounter Plan of Treatment Not on filedocumented as of this encounter Visit Diagnoses Not on filedocumented in this encounter Additional Health Concerns Assessment Noted Time PHQ-9 Depression Total Score: 6 01/31/2015 12:28 PM CD T documented as of this encounter
--- OUTSIDE RECORDS SUMMARY | 2022-05-28 06:57 | XMS_ITS | Encounter Summary ---
:1945 Author Organization [facility] Address [address] [place] [address] Care Team Providers Name Role Phone Unavailable Primary Care Provider Unavailable Encounter Details Date Type Department Care Team Description 05/09/2016 Hospital Encounter HX NO MAPPING Virginia Bernal M.D. [address] [place], [place] [phone] (Wo rk) Social History [...] do you attend restoration or Never 2021 restoration services? Do you [...]
--- OUTSIDE RECORDS SUMMARY | 2022-05-28 06:57 | XMS_ITS | Encounter Summary ---
:1945 Author Organization [facility] Address [address] [place] [address] Care Team Providers Name Role Phone Unavailable Primary Care Provider Unavailable Encounter Details Date Type Department Care Team Description 11/06/2015 Hospital Encounter [facility]X [facility] FB NURSE Piero Hong i, M.D. [address] [place] [address] (Wo rk) Social History [...] do you attend religion or Never 2021 gnosticist services? Do you [...] Comments Blood Pressure 144/70 11/06/2015 11:00 AM LOOM MECHANIC Pulse 90 11/06/2015 11:00 AM LOOM MECHANIC Temperature - - Respiratory Rate - - [...] Piero Weiss M.D. - 11/09/2015 5:34 PM LOOM MECHANIC Addendum by MARTI SANCHEZ LPN on 10 November 2015 16:39:05 LOOM MECHANIC patient notified and images submitted to md for review Addendum by MARTI SANCHEZ LPN on 10 November 2015 08:26:40 LOOM MECHANIC stress test completed of ekg part awaiting neucular images from [facility] From: PIERO WEISS MD To: LAWSON Roy Nurse; Sent: 11/09/2015 17:34:26 LOOM MECHANIC Please let Jonnathan know that h is carotid ultrasound was normal and find out when his stress test is scheduled Source: [facility] POWERCHART Document Id: [id number] Electronically signed by Conversion, [facility] Auto Transmission Mechanic [id number] at 02/22/2017 10:00 AM CDT Miscellaneous - Erica Morgan, C.M.A. - 11/06/2015 11:16 AM CST *General Message From: ERICA MORGAN [facility] To: PIERO WEISS MD; Sent: 11/06/2015 11:16:41 LOOM MECHANIC Subject: *General Message Patient was iin for B/P check today. B/P 145/67 Pulse 93 I waited three minutes and took B/P again. B/P 144/70 Pulse 90 Source: [facility] POWERCHART Document Id: [id number] Reji - Erica Morgan C.MMauroA. - 11/06/2015 11:00 AM CST Ambulatory Vitals Height Weight Ambulatory Vitals Height Weight Entered On: 11/06/2015 11:15 LOOM MECHANIC Performed On: 11/06/2015 11:00 LOOM MECHANIC by ERICA MORGAN CMA Vitals/Ht/Wt Peripheral Pulse Rate : 90 /min Systolic Blood Pressure : 144 mmHg (HI) Diastolic Blood Pressure : 70 mmHg NIBP Mean : 95 mmHg BP Location : Left upper extremity Blood Pressure Cuff Size : Regular ERICA MORGAN [facility] - 11/06/2015 11:14 LOOM MECHANIC [facility] Document Id: [id number] LOOM MECHANIC!8 MECHANIC Carencellmaria e - Erica Morgan C.M.A. - 11/06/2015 10:44 AM CST Ambulatory Vitals Height Weight Ambulatory Vitals Height Weight Entered On: 11/06/2015 10:45 LOOM MECHANIC Performed On: 11/06/2015 10:44 LOOM MECHANIC by ERICA MORGAN CMA Vitals/Ht/Wt Peripheral Pulse Rate : 93 /min Systolic Blood Pressure : 145 mmHg (HI) Diastolic Blood Pressure : 67 mmHg NIBP Mean : 93 mmHg BP Location : Left upper extremity Blood Pressure Cuff Size : Regular ERICA MORGAN [facility] - 11/06/2015 10:44 LOOM MECHANIC [facility] Document Id: [id number] LOOM MECHANIC!8 MECHANIC documented in this encounter Plan of Treatment Not on filedocumented as of this encounter Visit Diagnoses Not on filedocumented in this encounter Additional Health Concerns Assessment Noted Time PHQ-9 Depression Total Score: 6 01/31/2015 12:28 PM CD T documented as of this encounter
--- OUTSIDE RECORDS SUMMARY | 2022-05-28 06:57 | XMS_ITS | Encounter Summary ---
:1945 Author Organization [facility] Address [address] [place] [address] Care Team Providers Name Role Phone Unavailable Primary Care Provider Unavailable Encounter Details Date Type Department Care Team Description 05/13/2016 Hospital Encounter HX [facility] Ailyn Bernal M.D. [address] [place] [address] (Wo rk) Social History Tobacco [...] do you attend anglican or Never 2021 moravian services? Do you [...] Bernal M.D. - 05/13/2016 2:26 PM CDT [id number] CHIEF COMPLAINT/REASON FOR VISIT Gross hematuria. HISTORY [...] Ailyn Bernal M.D./phong cc: Ewa Hinton M.D. [facility] [place] [address] Electronically Signed By: AILYN BERNAL MD On: 05/14/2016 07:30 AM Source: [facility] MHSDOLBEYNONRADSYS Document Id: [id number] documented in this encounter Procedure Notes Ailyn [...] BERNAL MD On: 05/13/2016 04:22 PM Source: [facility] POWERCHART Document Id: [id number] documented in this encounter Miscellaneous Notes Miscellaneous - Ailyn Bernal M.D. - 05/13/2016 4:19 PM CDT Ambulatory Patient Summary [facility] [address] [place] [id number] Visit Information Name: JONNATHAN COSTA [facility] Number: [id number] Current Date: 05/13/2016 16:19:32 Physicians [...] Ewa Roy MD 05/27/2016 09:45 [facility] iAlyn Bernal MD Attention: Contact your local Clinic [...] if you dont have one. Go to [email or web address] and click on Create Your Account. Then, follow the directions to complete the online form. Youll be asked for your [facility] number which you can find at the top of this document. Your Goals/Additional instructions: Source: [facility] POWERCHART Document Id: [id number] Miscellaneous - Ailyn Bernal M.D. - 05/13/2016 4:19 PM CDT Ambulatory Discharge Medication List [address] [id number] Visit Information Name: JONNATHAN COSTA [facility] Number: [id number] Visit Date: 05/13/2016 16:19:31 Attending [...] MD Signed On:13-MAY-2016 16:19:29 Additional Information: Source: [facility] POWERCHART Document Id: [id number] Miscellaneous - Becky Hager, L.P.N. - 05/13/2016 2:31 PM CDT Adult Tap Grinder Intake/History Adult Tap Grinder Intake/History Entered On: 05/13/2016 14:33 CDT Performed [...] Preferred Communication Mode : Verbal Languages : [place] Is Patient Female [...] Tobacco Last Use/Year : 1982 BECKY HAGER [facility] - 05/13/2016 14:31 CDT Caffeine Use Grid Caffeine Use : Current Type : Chocolate, Coffee, Soft drinks Frequency : Daily BECKY HAGER [facility] - 05/13/2016 14:31 CDT Recreational Drug Use Grid Drug Use : None BECKY HAGER [facility] - 05/13/2016 14:31 CDT Source: [facility] [email or web address] Document Id: [id number] CDT!35 documented in this encounter Plan of [...] Received Time / Laterality Volume 05/22/2016 Narrative [facility] - 05/24/20 16 11:07 AM CDT Historical Provider LAB SURG PATH ORDERABLES Performing Organization Address City/[facility]/ZIP Code Phon e Number [facility] NA Pathology Surgical Pathology (05/22/2016 12:00 AM CDT) Specimen (Source) Anatomical Location Collection Method / Collectio n Time Received Time / Laterality Volume 05/22/2016 Narrative [facility] - 05/24/20 16 11:07 AM [...]
--- OUTSIDE RECORDS SUMMARY | 2022-05-28 06:57 | XMS_ITS | Encounter Summary ---
:1945 Author Organization [facility] Address [address] [place] [address] Care Team Providers Name Role Phone Unavailable Primary Care Provider Unavailable Encounter Details Date Type Department Care Team Description 11/06/2015 Hospital Encounter HX [facility] FAMILYPRA Piero Moya i, M.D. [address] [place] [address] (Wo rk) Social History Tobacco [...] do you attend yazidi or Never 2021 sikh services? Do you [...] Comments Blood Pressure 130/60 11/06/2015 11:31 AM PSYCHOLOGIST INDUSTRIAL ORGANIZATIONAL Pulse 84 11/06/2015 11:31 AM PSYCHOLOGIST INDUSTRIAL ORGANIZATIONAL Temperature - - Respiratory Rate 26 11/06/2015 11:31 AM PSYCHOLOGIST INDUSTRIAL ORGANIZATIONAL Oxygen Saturation - - Inhaled Oxygen Concentration - - Weight 112 kg (246 lb 14.6 oz) 11/06/2015 11:31 AM PSYCHOLOGIST INDUSTRIAL ORGANIZATIONAL Height - - Body Mass Index 30.7 [...] Rojas M.D. - 11/06/2015 10:44 AM CST [id number] CHIEF COMPLAINT/ REASON FOR VISIT Lightheadedness. HISTORY [...] surgery at the [facility]. 8. Tonsillectomy. 9. AGNIESZKA, prescribed CPAP therapy [...] including BMP and CBC. Stress test at [facility]. 2. Above symptoms could also be suggestive of cerebral vascular disease. Will obtain carotid ultrasound. 3. Follow up. The patient will contact the clinic with any new or worsening symptoms. This document serves as a record of services personally performed by Piero Roy MD. It was created on their behalf by Luul Roldan, a trained quality engineer medical device. The creation of this record is based on the scribe's personal observations and the provider's statements to them. This document has been christie cked and approved by the attending provider. Piero Hinton M.D./livia Electronically Signed By: PIERO ROJAS MD On: 11/08/2015 10:06 PM Source: [facility] MHSDOLBEYNJESSIESYIhsan Document Id: [id number] HOLOGIST INDUSTRIAL ORGANIZATIONAL documented in this encounter Miscellaneous Notes Miscellaneous - Piero Rojas M.D. - 11/20/2015 2:31 PM PSYCHOLOGIST INDUSTRIAL ORGANIZATIONAL Addendum by JACQUIE SANCHEZ LPN on 20 November 2015 15:14:47 PSYCHOLOGIST INDUSTRIAL ORGANIZATIONAL order and referal sent to [facility] and patient notified From: PIERO ROJAS MD To: LAWSON Roy Nurse; Sent: 11/20/2015 14:31:32 PSYCHOLOGIST INDUSTRIAL ORGANIZATIONAL Beth needs an MRI brain and would like an order sent to [facility] in [place], [place]. Fax there is [phone] Please call Diallo to let her know the order has been faxed. Source: [facility] [employer] Document Id: [id number] Carencellaneous - Piero Rojas M.D. - 11/20/2015 2:29 PM PSYCHOLOGIST INDUSTRIAL ORGANIZATIONAL MRI brain with contrast to evaluate possible TIA. Electronically Signed By: PIERO ROJAS MD On: 11/20/2015 02:29 PM Source: [facility] [employer]CHART Document Id: [id number] HOLOGIST INDUSTRIAL ORGANIZATIONAL Miscellaneous - Piero Rojas M.D. - 11/12/2015 4:45 PM PSYCHOLOGIST INDUSTRIAL ORGANIZATIONAL Ambulatory Patient Summary [address] [id number] Visit Information Name: BETH DURAN [facility] Number: [id number] Current Date: 11/12/2015 16:45:14 Physicians [...] if you dont have one. Go to [email or web address] and click on Create Your Account. Then, follow the directions to complete the online form. Youll be asked for your [facility] number which you can find at the top of this document. Your Goals/Additional instructions: Source: [facility] POWERCHART Document Id: [id number] HOLOGIST INDUSTRIAL ORGANIZATIONAL Miscellaneous - Piero Rojas M.D. - 11/12/2015 4:45 PM PSYCHOLOGIST INDUSTRIAL ORGANIZATIONAL Ambulatory Discharge Medication List [address] [id number] Visit Information Name: BETH DURAN [facility] Number: [id number] Visit Date: 11/12/2015 16:45:13 Attending [...] MD Signed On:12-NOV-2015 16:45:07 Additional Information: Source: [facility] POWERCHART Document Id: [id number] HOLOGIST INDUSTRIAL ORGANIZATIONAL Miscellaneous - Jacquie Sanchez, L.P.N. - 11/06/2015 11:31 AM CST Adult Card Processing Clerk Intake/History Adult Card Processing Clerk Intake/History Entered On: 11/06/2015 11:33 PSYCHOLOGIST INDUSTRIAL ORGANIZATIONAL Performed On: 11/06/2015 11:31 PSYCHOLOGIST INDUSTRIAL ORGANIZATIONAL by JACQUIE SANCHEZ WEEKEND ANCHOR Intake Chief Complaint : light headedness and [...] Weight Clinic : 112 kg JACQUIE SANCHEZ WEEKEND ANCHOR - 11/06/2015 11:31 PSYCHOLOGIST INDUSTRIAL ORGANIZATIONAL General Info Information Given By : Patient Preferred Communication Mode : Verbal Languages : Czech Is Patient Female and 13-50 no hysterectomy : No JACQUIE SANCHEZ WEEKEND ANCHOR - 11/06/2015 11:31 PSYCHOLOGIST INDUSTRIAL ORGANIZATIONAL Subjective Pain Symptoms : No JACQUIE SANCHEZ [facility] - 11/06/2015 11:31 PSYCHOLOGIST INDUSTRIAL ORGANIZATIONAL Dependent Habits Exposure to Tobacco Smoke : Other: quit 40 years ago Smoking Status : Former smoker Tobacco 2A : Yes Tobacco Use/Currently Using : No Tobacco Use/Last 30 Days : No Tobacco Use/Last 12 months : No JACQUIE SANCHEZ [facility] - 11/06/2015 11:31 PSYCHOLOGIST INDUSTRIAL ORGANIZATIONAL Caffeine Use Grid Caffeine Use : Current Type : Coffee Frequency : Daily JACQUIE SANCHEZ LPN - 11/06/2015 11:31 PSYCHOLOGIST INDUSTRIAL ORGANIZATIONAL Recreational Drug Use Grid Drug Use : None JACQUIE SANCHEZ [facility] - 11/06/2015 11:31 PSYCHOLOGIST INDUSTRIAL ORGANIZATIONAL Source: [employer] Document Id: [id number] PSYCHOLOGIST INDUSTRIAL ORGANIZATIONAL!36 HOLOGIST INDUSTRIAL ORGANIZATIONAL documented in this encounter Plan of Treatment Not on filedocumented as of this encounter Procedures Procedure Name Priority Date/Time Associated Diagnosis Comme nts US CAROTID Routine 11/06/2015 1:29 PM Results f or this BILATERAL PSYCHOLOGIST INDUSTRIAL ORGANIZATIONAL procedure are i n the results section. CBC WITHOUT Routine 11/06/2015 12:40 PM Results for this DIFFERENTIAL, B PSYCHOLOGIST INDUSTRIAL ORGANIZATIONAL procedure ar e in the results section. BASIC METABOLIC Routine 11/06/2015 12:40 PM Resul ts for this PANEL, S/P PSYCHOLOGIST INDUSTRIAL ORGANIZATIONAL procedure are i n the results section. DX CHEST AP OR PA Routine 11/06/2015 12:21 PM Res ults for this AND LATERAL 2 VIEWS PSYCHOLOGIST INDUSTRIAL ORGANIZATIONAL procedur e are in the results section. documented in this encounter Results US Carotid Bilateral (11/06/2015 1:29 PM PSYCHOLOGIST INDUSTRIAL ORGANIZATIONAL) Anatomical Region Laterality Modality Head and Neck Bilateral Ultrasound Specimen (Source) Anatomical Collection Method Collection Time Re ceived Time Location / / Volume Laterality 11/06/2015 1:29 PM PSYCHOLOGIST INDUSTRIAL ORGANIZATIONAL Addenda Addendum by Provider, Pato Chase o theo 11/06/2015 1:29 PM PSYCHOLOGIST INDUSTRIAL ORGANIZATIONAL RAD^^^OW US Carotid Duplex Bilat 11/06/2015 13:29:50 Narrative 11/06/2015 2:30 PM PSYCHOLOGIST INDUSTRIAL ORGANIZATIONAL EXAM: US Carotid Duplex Bilat INDICATION: episodes [...] (ABNORMAL) CBC without Differential (11/06/2015 12:40 PM PSYCHOLOGIST INDUSTRIAL ORGANIZATIONAL) Analysis Performed At Patho logist Time Signature Leukocytes 6.4 3.5 - 10.5 POWERCHART X109L Erythrocytes 4.18 (L) 4.32 - POWERCHART 5.72 [id number] Hemoglobin 12.7 (L) 13.5 - POWERCHART 17.5 GDL Hematocrit 36.3 (L) 38.8 - POWERCHART 50.0 MCV 86.8 81.0 - POWERCHART 95.0 FL Platelet Count 214 150 - 450 POWERCHART X109L HX RDW 12.5 11.8 - POWERCHART 15.6 Specimen (Source) Anatomical Collection Method Collection Time Re ceived Time Location / / Volume Laterality Blood 11/06/2015 12:40 PM PSYCHOLOGIST INDUSTRIAL ORGANIZATIONAL Piero Alejandro M.D. LAB BLOOD ADD-ON Performing Organization Address City/State/ZIP Code Phon e Number POWERCHART (ABNORMAL) BMP (Basic Metabolic Panel) (11/06/2015 12:40 PM PSYCHOLOGIST INDUSTRIAL ORGANIZATIONAL) P athologist Signature Anion Gap 14 7 [...] POWERCHART MMOLL HXeGFR (MDRD) >60 >=60 POWERCHART [id number] eGFR >60 >=60 POWERCHART Black/ [id number] Ukrainian Specimen (Source) Anatomical Collection Method Collection Time Re ceived Time Location / / Volume Laterality Blood 11/06/2015 12:40 PM PSYCHOLOGIST INDUSTRIAL ORGANIZATIONAL Piero Alejandro M.D. LAB BLOOD ADD-ON Performing Organization Address City/State/ZIP Code Phon e Number POWERCHART DX Chest Anterior Posterior or Posterior Anterior and Lateral 2 Views (11/06/2015 12:21 PM PSYCHOLOGIST INDUSTRIAL ORGANIZATIONAL) Anatomical Region Laterality Modality Chest N/A Radiographic Imaging Specimen (Source) Anatomical Collection Method Collection Time Re ceived Time Location / / Volume Laterality 11/06/2015 12:21 PM PSYCHOLOGIST INDUSTRIAL ORGANIZATIONAL Addenda Addendum by Provider, Pato Chase 11/06/2015 12:21 PM PSYCHOLOGIST INDUSTRIAL ORGANIZATIONAL RAD^^^OW XR Chest 2 Views 11/06/2015 12:21:42 Impressions 11/06/2015 12:52 PM PSYCHOLOGIST INDUSTRIAL ORGANIZATIONAL ??No acute findings. Narrative 11/06/2015 12:52 PM PSYCHOLOGIST INDUSTRIAL ORGANIZATIONAL EXAM: ??XR Chest 2 Views AGE: ??70 [...]
--- OUTSIDE RECORDS SUMMARY | 2022-05-28 06:57 | XMS_ITS | Encounter Summary ---
:1945 Author Organization [facility] Address [address] [place] [address] Care Team Providers Name Role Phone Unavailable Primary Care Provider Unavailable Encounter Details Date Type Department Care Team Description 05/16/2016 Hospital Encounter HX [facility] FB FAMILYPRA Piero Moya i, M.D. [address] [place] [address] (Wo rk) Social History Tobacco [...] you attend oriental orthodox or Never 2021 lutheran services? Do you [...] Weiss M.D. - 05/16/2016 9:27 AM CDT [id number] CHIEF COMPLAINT/ REASON FOR VISIT Proposed surgery date: 05/22/2016. Surgeon: Dr. Prasanna Bernal. Proposed surgery: Cystoscopy with bladder biopsies, transurethral resection of bladder tumor. Location: [facility] HISTORY OF PRESENT ILLNESS Jonnathan [...] [facility] [...] He doesn't smoke. 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 FAMILY HISTORY Mother had hypertension. There is no colon or prostate cancer in the family. There is no diabetes. Father had an FL at age 76. Asthma and mental illness [...] cancer. Will refer patient to uro[facility]cology at [facility] per his request. Referral is pending results from upcoming procedure. 3. Follow up. The patient will contact the clinic with any new or worsening symptoms. This document serves as a record of services personally performed by Piero Roy MD. It was created on their behalf by Lulu Roldan, a trained director of graduate medical education. The creation of this record is based on the scribe's personal observations and the provider's statements to them. This document has been christie cked and approved by the attending provider. Piero Hinton M.D./livia Electronically Signed By: PIERO WEISS MD On: 06/10/2016 09:24 AM Source: [facility] MHSDOLBEYNONRADSYS Document Id: [id number] documented in this encounter Miscellaneous Notes Miscellaneous - Kitty Bailey L.PMauroNMauro - 05/16/2016 10:29 AM CDT Adult Vocational Rehabilitation Specialist Intake/History Adult Vocational Rehabilitation Specialist Intake/History Entered On: 05/16/2016 10:30 CDT Performed [...] Information Given By : Patient Languages : Angolan Is Patient Female and [...] BAILEY LPN - 05/16/2016 10:29 CDT Source: [facility] POWERCHART Document Id: [id number] CDT!40 Kitty Tang LMauroP.N. - 05/16/2016 10:28 [...] BAILEY LPN - 05/16/2016 10:28 CDT Source: [employer] Document Id: [id number] CDT!5 Kitty Tang L.P.NMauro - 05/16/2016 10:27 AM CDT Adult Vocational Rehabilitation Specialist Intake/History Adult Vocational Rehabilitation Specialist Intake/History Entered On: 05/16/2016 10:28 CDT Performed On: 05/16/2016 10:27 CDT by KITTY BAILEY LPN Intake Chief Complaint : pre op KITTY BAILEY LPN - 05/16/2016 10:27 CDT General Info Information Given By : Patient Languages : Angolan Is Patient Female and [...] Grid Drug Use : None KITTY BAILEY METAL FABRICATION SUPERVISOR - 05/16/2016 10:27 CDT Source: [facility] POWERCHART Document Id: [id number] CDT!25 documented in this encounter Plan of [...] / Volume Laterality 05/16/2016 10:16 AM CDT [facility] [employer] - 05/16/2016 10:16 AM CDT Test [...] Phon e Number [facility] [address] [place] [id number] DX Chest Anterior Posterior or Posterior Anterior [...]
--- OUTSIDE RECORDS SUMMARY | 2022-05-28 06:57 | XMS_ITS | Encounter Summary ---
:1945 Author Organization [facility] Address [address] [place] [address] Care Team Providers Name Role Phone Unavailable Primary Care Provider Unavailable Encounter Details Date Type Department Care Team Description 05/08/2016 Hospital Encounter HX [facility]ILY[facility] Piero Moya i, M.D. [address] [place] [address] (Wo rk) Social History Tobacco [...] Weiss M.D. - 05/08/2016 12:42 PM CDT [id number] CHIEF COMPLAINT/ REASON FOR VISIT Follow up [...] kidney function improved. He is also on shelter anticoagulation. His CT did show marked prostate [...] numerous inhalers and the doctor [place] the [place] suggested using Prednisone. He was exposure to Agent [place] while in the service. He states that [...] dysfunction. 6. Pulmonary symptomatology, diagnosis at the [place] unclear, but probably some degree of COPD. 7. Status post left cataract surgery at the [place]. 8. Tonsillectomy. 9. AGNIESZKA, prescribed CPAP therapy [...] behalf by Karen Givens, a trained medical transcription. The creation of this record is based on the scribe's personal observations and the provider's statements to them. This document has been ch ecked and approved by the attending provider. Piero Hinton M.D./ Electronically Signed By: PIERO WEISS MD On: 05/11/2016 12:01 PM Source: [facility] MHSDOLBEYNONRADSYS Document Id: [id number] documented in this encounter Miscellaneous Notes Miscellaneous - Piero Weiss M.D. - 05/11/2016 11:44 AM CDT Ambulatory Patient Summary [address] [id number] Visit Information Name: JONNATHAN COSTA [facility] Number: [id number] Current Date: 05/11/2016 11:44:18 Physicians [...] Appointments Date Time Location Provider 05/13/2016 14:30 [facility] Urology Prasanna Luevano MD Attention: Contact [...] if you dont have one. Go to [email or web address] and click on Create Your Account. Then, follow the directions to complete the online form. Youll be asked for your [facility] number which you can find at the top of this document. Your Goals/Additional instructions: Source: [facility] POWERCHART Document Id: [id number] Miscellaneous - Piero Weiss M.D. - 05/11/2016 11:44 AM CDT Ambulatory Discharge Medication List [address] [id number] Visit Information Name: JONNATHAN COSTA [facility] Number: [id number] Visit Date: 05/11/2016 11:44:16 Attending [...] MD Signed On:11-MAY-2016 11:44:12 Additional Information: Source: [facility] POWERCHART Document Id: [id number] Miscellaneous - Marti Hamilton, L.P.N. - 05/08/2016 [...] Soft drinks Frequency : Daily MARTI HAMILTON ARMOR RECONNAISSANCE SPECIALIST - 05/08/2016 13:03 CDT Recreational Drug Use Grid Drug Use : None MARTI HAMILTON LPN - 05/08/2016 13:03 CDT AUDIT Tool How Often Do You Have A Drink : Monthly or less How Many Drinks in a Day When Drinking : 1 or 2 Six or More Drinks On One Occassion : Never Audit Phase 1 Score : 1 MARTI HAMILTON ARMOR RECONNAISSANCE SPECIALIST - 05/08/2016 13:03 CDT Psychosocial Domestic Abuse Concerns : None Behavioral Health Screen/Safety Assmt : No Worship Preference : Unknown MARTI HAMILTON ARMOR RECONNAISSANCE SPECIALIST - 05/08/2016 13:03 CDT Advance Directive Advanced Directives : No Advance Directive Additional Information : No MARTI HAMILTON ARMOR RECONNAISSANCE SPECIALIST - 05/08/2016 13:03 CDT Educ Needs Learning Style Preference Adult Grid Patient : Demonstration, Printed materials, Verbal explanation Family : Demonstration, Printed materials, Verbal explanation MARTI HAMILTON LPN - 05/08/2016 13:03 CDT Source: [employer] Document Id: [id number] CDT!47 Miscellaneous - Marti Hamilton, L.P.N. - 05/08/2016 1:00 PM CDT Adult Associate Professor Of Counseling Intake/History Adult Associate Professor Of Counseling Intake/History Entered On: 05/08/2016 13:03 CDT Performed On: 05/08/2016 13:00 CDT by MARTI HAMILTON ARMOR RECONNAISSANCE SPECIALIST Intake Chief Complaint : review test results [...] Preferred Communication Mode : Verbal Languages : Malaysian Is Patient Female and 13-50 no hysterectomy : No MARTI HAMILTON [facility] - 05/08/2016 13:00 CDT Subjective Pain Symptoms : No MARTI HAMILTON ARMOR RECONNAISSANCE SPECIALIST - 05/08/2016 13:00 CDT Dependent Habits Exposure to Tobacco Smoke : Other: quit in 1982 Smoking Status : Former smoker Tobacco 2A : Yes Tobacco Use/Currently Using : No Tobacco Use/Last 30 Days : No Tobacco Use/Last 12 months : No Tobacco Last Use/Year : 1982 MARTI HAMILTON [facility] - 05/08/2016 13:00 CDT Caffeine Use Grid Caffeine Use : Current Type : Coffee Frequency : Daily MARTI HAMILTON [facility] - 05/08/2016 13:00 CDT Recreational Drug Use Grid Drug Use : None MARTI HAMILTON LPN - 05/08/2016 13:00 CDT Source: [employer] Document Id: [id number] CDT!41 documented in this encounter Plan of Treatment Not on filedocumented as of this encounter Visit Diagnoses Not on filedocumented in this encounter Additional Health Concerns Assessment Noted Time PHQ-9 Depression Total Score: 6 01/31/2015 12:28 PM CD T documented as of this encounter
--- OUTSIDE RECORDS SUMMARY | 2022-05-28 06:57 | XMS_ITS | Encounter Summary ---
:1945 Author Organization [facility] Address [address] [place] [address] Care Team Providers Name Role Phone Unavailable Primary Care Provider Unavailable Encounter Details Date Type Department Care Team Description 05/07/2016 Hospital Encounter HX [facility] FBHB LAB Piero Grier M.D. [address] [place], [place] [phone] (Wo rk) Social History [...] get him in to urology AGUILAR Source: [facility] POWERCHART Document Id: [id number] Electronically signed by Karen, [facility] Security Management Specialist [id number] at 02/23/2017 3:20 AM CDT Miscellaneous - [...] Urogram. Can he be seen AGUILAR in [place]? Source: [facility] POWERCHART Document Id: [id number] Electronically signed by Conversion, [facility] Security Management Specialist [id number] at 02/23/2017 3:20 AM CDT documented in [...] POWERCHART MMOLL HXeGFR (MDRD) >60 >=60 POWERCHART [id number] eGFR >60 >=60 POWERCHART Black/ [id number] Moldovan Glucose 166 (H) 70 - 139 POWERCHART [...]
--- OUTSIDE RECORDS SUMMARY | 2022-05-28 06:57 | XMS_ITS | Encounter Summary ---
:[address] [facility] Address [address] [place] [address] Care Team Providers Name Role Phone Unavailable Primary Care Provider Unavailable Encounter Details Date Type Department Care Team Description 04/29/2016 Hospital Encounter HX NO MAPPING Ewa Alejandro M.D. [address] [place], [place] [phone] (Wo rk) Social History [...] Coding Summary-Paper Based CODING DATE: 05/10/2016 FINAL [facility] STATUS: * Discharged to Home or [...] TREVIZO Date Saved: 05/10/2016 11:05 am Source: [employer] Document Id: [id number] documented in this encounter Plan of Treatment Not on filedocumented as of this encounter Visit Diagnoses Not on filedocumented in this encounter Additional Health Concerns Assessment Noted Time PHQ-9 Depression Total Score: 6 01/31/2015 12:28 PM CD T documented as of this encounter
--- OUTSIDE RECORDS SUMMARY | 2022-05-28 06:57 | XMS_ITS | Encounter Summary ---
:1945 Author Organization [facility] Address [address] [place] [address] Care Team Providers Name Role Phone Unavailable Primary Care Provider Unavailable Encounter Details Date Type Department Care Team Description 05/01/2016 Hospital Encounter HX [facility] FBHB LAB Ewa Grier M.D. [address] [place], [place] [phone] (Wo rk) Social History [...] do you attend presybeterian or Never 2021 taoist services? Do you [...] (05/01/2016 4:12 PM CDT) Analysis Performed At [facility] Time Signature Leukocytes 6.1 3.5 - 10.5 POWERCHART [id number] Erythrocytes 3.70 (L) 4.32 - POWERCHART 5.72 [id number] Hemoglobin 11.9 (L) 13.5 - POWERCHART 17.5 [...] (05/01/2016 4:12 PM CDT) Analysis Performed At [facility] Time Signature Sodium, S 137 135 - [...] MMOLL HXeGFR (MDRD) 43 (L) >=60 POWERCHART [id number] eGFR 52 (L) >=60 POWERCHART Black/ [id number] Maltese Glucose 253 (H) 70 - 139 POWERCHART [...]
--- OUTSIDE RECORDS SUMMARY | 2022-05-28 06:57 | XMS_ITS | Encounter Summary ---
:1945 Author Organization [facility] Address [address] [place] [address] Care Team Providers Name Role Phone Unavailable Primary Care Provider Unavailable Encounter Details Date Type Department Care Team Description 08/02/2015 Hospital Encounter HX [facility] FB LAB Ewa Grier M.D. [address] [place], [place] [phone] (Wo rk) Social History [...] do you attend evangelical or Never 2021 alevism services? Do you [...] 08/02/2015 7:28 Results fo r this AM PROTECTION MGR procedure are i n the results section. ASPARTATE Routine 08/02/2015 7:28 Results for this AMINOTRANSFERASE (AST), AM PROTECTION MGR proc edure are in S/P the results section. LDL CHOLESTEROL Routine 08/02/2015 7:28 Results f or this (BETA-QUANTIFICATION), S AM PROTECTION MGR pro cedure are in the results section. documented in this encounter Results (ABNORMAL) LDL Cholesterol (Beta-Quantification) (08/02/2015 7:28 AM PROTECTION MGR) P athologist Signature Direct LDL 143 (H) [...] for FH and FDB is available maeganu [facility]: FH/ADH Genetic Reflex Saleh [...] at or the on-line test catalog at [employer] for information about how to order these more ts or to speak with a genetic counselor. Further interpretation would require clinical information. Specimen Anatomical Collection Method Collection Time Receive d Time (Source) Location / / Volume Laterality Blood 08/02/2015 7:28 AM 5 7:28 PROTECTION MGR AM PROTECTION MGR Ewa Alejandro M.D. LAB BLOOD ADD-ON Performing Organization Address City/State/ZIP Code Phon e Number POWERCHART AST (Aspartate Aminotransferase) (08/02/2015 7:28 AM PROTECTION MGR) [employer] Method Time Signature Aspartate 23 8 - 48 POWERCHART Aminotransferase UNITL (AST), S Specimen (Source) Anatomical Collection Method Collection Time Re ceived Time Location / / Volume Laterality Blood 08/02/2015 7:28 AM PROTECTION MGR Ewa Alejandro M.D. LAB BLOOD ADD-ON Performing Organization Address City/State/ZIP Code Phon e Number POWERCHART (ABNORMAL) Lipid Panel (08/02/2015 7:28 AM PROTECTION MGR) [employer] Method Time Signature Calculated LDL Test Not [...] / Volume Laterality Blood 08/02/2015 7:28 AM PROTECTION MGR Ewa Alejandro M.D. LAB BLOOD ADD-ON Performing Organization Address City/State/ZIP Code Phon e Number POWERCHART documented in this encounter Visit Diagnoses Not on filedocumented in this encounter Additional Health Concerns Assessment Noted Time PHQ-9 Depression Total Score: 6 01/31/2015 12:28 PM CD T documented as of this encounter
--- OUTSIDE RECORDS SUMMARY | 2022-05-28 06:57 | XMS_ITS | Encounter Summary ---
:1945 Author Organization [facility] Address [address] [place] [address] Care Team Providers Name Role Phone Unavailable Primary Care Provider Unavailable Encounter Details Date Type Department Care Team Description 05/09/2016 Hospital Encounter HX [facility] Ailyn Bernal M.D. [address] [place] [phone] (Wo rk) Social History Tobacco [...] do you attend hoahaoism or Never 2021 protestant services? Do you [...] Bernal M.D. - 05/09/2016 8:19 AM CDT [id number] CHIEF COMPLAINT/REASON FOR VISIT Gross hematuria. HISTORY [...] health clinics. He has beenexposed to Agent [place]. He quit tobacco 35 years ago. Has [...] Ailyn Bernal M.D./phong cc: Piero Hinton M.D. [facility] [address] Electronically Signed By: AILYN BERNAL MD On: 05/13/2016 08:04 AM Source: [facility] MHSDOLBEYNONRADSYS Document Id: [id number] documented in this encounter Miscellaneous Notes Telephone [...] be from 1-3 p.m. From: NANO MILES ([facility] Landscape Gardener) To: Neurology Nurse; Sent: 05/13/2016 08:04:58 CDT [...] scheduled for. He can be reached at [phone] or a [email or web address] phone [phone]. Patient is aware that Dr. Lala is [...] phone number ( ) Source: [facility] POWERCHART Document Id: [id number] Miscellaneous - Raegan Rehman APRN, R.N. - [...] Result Name MBO Review Culture Urine Source: [facility] POWERCHART Document Id: [id number] Electronically signed by Karen, [facility] Advertising Intern [id number] at 02/23/2017 3:20 AM CDT Miscellaneous - Ailyn Bernal M.D. - 05/09/2016 1:00 PM CDT Ambulatory Patient Summary [address] [id number] Visit Information Name: BETH COSTA [facility] Number: [id number] Current Date: 05/09/2016 13:00:12 Physicians [...] if you dont have one. Go to [email or web address] and click on Create Your Account. Then, follow the directions to complete the online form. Youll be asked for your [facility] number which you can find at the top of this document. Your Goals/Additional instructions: Source: [facility] POWERCHART Document Id: [id number] Miscellaneous - Ailyn Beranl M.D. - 05/09/2016 1:00 PM CDT Ambulatory Discharge Medication List [address] [id number] Visit Information Name: BETH COSTA [facility] Number: [id number] Visit Date: 05/09/2016 13:00:11 Attending [...] MD Signed On:09-MAY-2016 12:54:11 Additional Information: Source: [facility] POWERCHART Document Id: [id number] Miscellaneous - Becky Hager L.P.N. - 05/09/2016 [...] HAGER LPN - 05/09/2016 9:20 CDT Source: [facility] [employer] Document Id: [id number] CDT!11 Carencellmaria e - Becky Hager L.P.N. - 05/09/2016 9:01 AM CDT Adult Information Technology Professor Intake/History Adult Information Technology Professor Intake/History Entered On: 05/09/2016 9:03 CDT Performed [...] ft 2 inch(es), 74 inch(es)) BECKY HAGER [facility] - 05/09/2016 9:01 CDT General Info Information Given By : Patient Preferred Communication Mode : Verbal Languages : Croatian Is Patient Female and 13-50 no hysterectomy : No BECKY HAGER [facility] - 05/09/2016 9:01 CDT Subjective Pain Symptoms : No BECKY HAGER LPN - 05/09/2016 9:01 CDT Dependent Habits Exposure to Tobacco Smoke : Other: quit in 1982 Smoking Status : Former smoker Tobacco 2A : Yes Tobacco Use/Currently Using : No Tobacco Use/Last 30 Days : No Tobacco Use/Last 12 months : No Tobacco Last Use/Year : 1982 BECKY HAGER [facility] - 05/09/2016 9:01 CDT Caffeine Use Grid Caffeine Use : Current Type : Chocolate, Coffee, Soft drinks Frequency : Daily BECKY HAGER [facility] - 05/09/2016 9:01 CDT Recreational Drug Use Grid Drug Use : None BECKY HAGER [facility] - 05/09/2016 9:01 CDT Source: [facility] [employer] Document Id: [id number] CDT!34 documented in this encounter Plan of Treatment Not on filedocumented as of this encounter Procedures Procedure Name Priority Date/Time Associated Comments Diagnosis URINALYSIS WITH Routine 05/09/2016 9:45 AM Result s for this MICROSCOPIC CDT procedure are i n the results section. BACTERIAL CULTURE, Routine 05/09/2016 9:45 AM Res ults for this AEROBIC, URINE CDT procedure are in the results section. ZZPATHOLOGY NON-SUPERVISOR CUTTING DEPARTMENT Routine 05/09/2016 7:43 AM Re sults for this CYTOLOGY CDT procedure are i n the results section. documented in this encounter Results (ABNORMAL) Urinalysis, Complete, Includes Microscopic (05/09/2016 9:45 AM CDT) [facility] gist Method Time Signature HXUR WBC. None Seen None Seen POWERCHART HPF HXUR RBC. None Seen None Seen POWERCHART HPF Casts, Hyaline 1-3 (A) None Seen POWERCHART LPF HXUr Color Yellow Yellow POWERCHART Clarity Clear Clear POWERCHART Glucose Negative Negative POWERCHART HXBILIRUBIN Negative Negative POWERCHART Ketones, QL(U) Negative Negative POWERCHART Specific 1.017 1.001 - POWERCHART [place], POCT, U 1.035 pH, POCT, Urine 5.5 [...] (05/09/2016 9:45 AM CDT) [facility] Bacterial POWERCHART Culture, Aerobic, Urine HXFinal No growth POWERCHART Specimen (Source) Anatomical Collection Method Collection Time Re ceived Time Location / / Volume Laterality Urine, First 05/09/2016 9:45 AM Voided CDT Ailyn Bernal M.D. LAB MICROBIOLOGY - GENERAL O RDERABLES Performing Organization Address City/[facility]/ZIP Code Phon e Number POWERCHART ZZPATHOLOGY NON-SUPERVISOR CUTTING DEPARTMENT CYTOLOGY (05/09/2016 7:43 AM CDT) Specimen (Source) Anatomical Collection Method Collection Time Re ceived Time Location / / Volume Laterality 05/09/2016 7:43 AM CDT Narrative LCM LAB - 05/10/2016 1:56 PM CDT [facility] [address] [place], [place] ??[address] Patient Name: BETH COSTA Patient ID #: [id number] Collected: 05/09/2016 Address: City/State/Zip: [address] [place], [place] ??[id number] Received: Reported: 05/10/2016 05/10/2016 Soc. Sec. #: ?/Age/Sex 1945 (Age: 70) ??M Physician(s): A REGIS Copy To: ? [facility] ?? [id number] [address] [place], ??[place] ??[address] CYTOPATHOLOGY NON-SUPERVISOR CUTTING DEPARTMENT REPORT FINAL CYTOLOGIC DIAGNOSIS Urine-VOIDED: DIAGNOSIS ATYPICAL UROTHELIAL CELLS CONSISTENT WIT H INFLAMMATION, CALCULUS, RECENT INSTRUMENTATION OR LOW GRADE PAPILLARY LESION. SATISFACTORY SPECIMEN FOR EVALUATION. Electronically Signed By [facility]/05/10/2016 Pato FARMER(ASCP) SPECIMEN(S) RECEIVED: Urine-VOIDED CLINICAL [...]
--- OUTSIDE RECORDS SUMMARY | 2022-05-28 06:58 | XMS_ITS | Encounter Summary ---
:1945 Author Organization [facility] Address [address] [place] [address] Care Team Providers Name Role Phone Unavailable [...] do you attend faith or Never 2021 christianity services? Do you [...] Comments Blood Pressure 136/76 08/17/2013 2:11 PM ENGINEER OF SYSTEM DEVELOPMENT Pulse - - Temperature - - Respiratory [...] Major M.D. - 08/17/2013 1:43 PM CST [id number] I spent about 15 minutes with this [...] MAJOR MD On: 09/02/2013 10:36 AM Source: [facility] MHSDOLBEYNONRADSYS Document Id: [id number] NEER OF SYSTEM DEVELOPMENT documented in this encounter Miscellaneous Notes Miscellaneous - Roxann Echols - 08/17/2013 3:41 PM CST Reminder Msg-Schedule Colonoscopy From: ROXANN ECHOLS (FB Surgery Nurse) To: FB Surgery Nurse; Sent: 08/17/2013 15:41:53 ENGINEER OF SYSTEM DEVELOPMENT Show up: 07/10/2018 15:41:00 CDT Subject: Reminder Msg-Schedule Colonoscopy Due Date/Time: 08/10/2018 15:41:00 ENGINEER OF SYSTEM DEVELOPMENT Please Remember to: Schedule colonoscopy; rescope in [address] Major intermediate risk; hx of polpys; last one 08-10-13 PATIENT: ( ) Call Patient ( ) Ask Patient to ( ) ( ) Call Relative ( ) Schedule Patient ( ) ( ) Call for Forming Machine Upkeep Mechanic Helper ( ) Follow up on Results ( ) Other: PROVIDER: ( ) Call Physician ( ) Call Pharmacist ( ) Call Lab ( ) Other: Special Instructions: Comments: Source: [facility] POWERCHART Document Id: [id number] Miscellaneous - Kyree Major M.D. - 08/17/2013 2:44 PM CST Ambulatory Patient Summary [address] [id number] Visit Information Name: JONNATHAN COSTA [facility] Number: [id number] Current Date: 08/17/2013 14:44:55 [...] appointment detail needed. Your Goals/Additional instructions: Source: [facility] POWERCHART Document Id: [id number] NEER OF SYSTEM DEVELOPMENT Miscellaneous - Kyree Major M.D. - 08/17/2013 2:44 PM CST [place] [address] Visit Information Name: JONNATHAN COSTA [facility] Number: [id number] Visit Date: 08/17/2013 14:44:55 [...] your provider for clarification. Additional Information: Source: [facility] [employer] Document Id: [id number] NEER OF SYSTEM DEVELOPMENT Miscellaneous - Roxann Echols - 08/17/2013 2:11 PM CST Adult Water Resources Engineer Intake/History Adult Water Resources Engineer Intake/History Entered On: 08/17/2013 14:12 ENGINEER OF SYSTEM DEVELOPMENT Performed On: 08/17/2013 14:11 ENGINEER OF SYSTEM DEVELOPMENT by ROXANN ECHOLS Intake Chief Complaint : colonoscopy results Temperature Core : 36.6 DegC(Converted to: 97.9 DegF) Systolic Blood Pressure : 136 mmHg Diastolic Blood Pressure : 76 mmHg NIBP Mean : 96 mmHg BP Location : Left upper extremity Blood Pressure Cuff Size : Regular ROXANN ECHOLS - 08/17/2013 14:11 ENGINEER OF SYSTEM DEVELOPMENT General Info Languages : Cymro ROXANN ECHOLS - 08/17/2013 14:11 ENGINEER OF SYSTEM DEVELOPMENT Subjective Pain Symptoms : No ROXANN ECHOLS - 08/17/2013 14:11 ENGINEER OF SYSTEM DEVELOPMENT Dependent Habits Tobacco Use/Currently Using : No Smoking Status : Former smoker ROXANN ECHOLS - 08/17/2013 14:11 ENGINEER OF SYSTEM DEVELOPMENT Tobacco Use Grid Last Use : former ROXANN ECHOLS - 08/17/2013 14:11 ENGINEER OF SYSTEM DEVELOPMENT Caffeine Use Grid Caffeine Use : Current Type : Coffee Frequency : Daily ROXANN ECHOLS - 08/17/2013 14:11 ENGINEER OF SYSTEM DEVELOPMENT Recreational Drug Use Grid Drug Use : None ROXANN ECHOLS - 08/17/2013 14:11 ENGINEER OF SYSTEM DEVELOPMENT Source: [facility] [employer]CHART Document Id: [id number] ENGINEER OF SYSTEM DEVELOPMENT!27 NEER OF SYSTEM DEVELOPMENT documented in this encounter Plan of Treatment Not on filedocumented as of this encounter Visit Diagnoses Not on filedocumented in this encounter
--- OUTSIDE RECORDS SUMMARY | 2022-05-28 06:58 | XMS_ITS | Encounter Summary ---
:1945 Author Organization [facility] Address [address] [place] [address] Care Team Providers Name Role Phone Unavailable Primary Care Provider Unavailable Encounter Details Date Type Department Care Team Description 04/11/2015 Hospital Encounter [facility]X [facility] FAMILY[facility] Piero Moya i, M.D. [address] [place] [address] (Wo rk) Social History Tobacco [...] do you attend orthodoxy or Never 2021 adventism services? Do you [...] Weiss M.D. - 04/11/2015 1:59 PM CDT [id number] CHIEF COMPLAINT/ REASON FOR VISIT Review lab results and discuss seeing an sergeant missile crewman. HISTORY OF PRESENT ILLNESS Beth is a 69 year old male who presents to the clinic today to discuss his lab results and discuss seeing an sergeant missile crewman. He has had diabetes for 25 years [...] behalf by Karen Jones, a trained medical housekeeper. The creation of this record is based on the scribe's personal observations and the provider's statements to them. This document has been checked and approved by the attending provider. Piero Hinton M.D./ Electronically Signed By: PIERO WEISS MD On: 06/19/2015 10:16 AM Source: [facility] MHSDOLBEYNONRADSYS Document Id: [id number] documented in this encounter Miscellaneous Notes Telephone [...] to stop them. As today at the consumer loan specialist appt he was told something different about [...] back cell phone number ( ) Source: [facility] POWERCHART Document Id: [id number] Electronically signed by Karen [facility] Cq Developer [id number] at 02/23/2017 6:30 PM CDT Miscellaneous - Piero Weiss M.D. - 04/11/2015 6:16 PM CDT Ambulatory Patient Summary [address] [id number] Visit Information Name: BETH COSTA [facility] Number: [id number] Current Date: 04/11/2015 18:16:46 [...] nasal (fluticasone 50 mcg/inh nasal spray) 2 [place](s), Nostrils(Both), once a day gemfibrozil (gemfibrozil 600 [...] Appointments Date Time Location Provider 04/19/2015 11:30 [facility] Landis CNP Attention: Contact your local [...] online form. Youll be asked for your [facility] number which you can find at the top of this document. Your Goals/Additional instructions: Source: [facility] POWERCHART Document Id: [id number] Miscellaneous - Piero Weiss M.D. - 04/11/2015 6:16 PM CDT Ambulatory Discharge Medication List [address] [id number] Visit Information Name: BETH COSTA [facility] Number: [id number] Visit Date: 04/11/2015 18:16:45 [...] nasal (fluticasone 50 mcg/inh nasal spray) 2 [place](s), Nostrils(Both), once a day gemfibrozil (gemfibrozil 600 [...] MD Signed On:11-APR-2015 18:16:38 Additional Information: Source: [facility] POWERCHART Document Id: [id number] Miscellaneous - Justina Lobato, LMauroP.N. - 04/11/2015 [...] CROWLEY LPN - 04/11/2015 14:09 CDT Source: [facility] POWERCHART Document Id: [id number] CDT!7 Miscellaneous - Justina Lobato L.P.N. - 04/11/2015 2:06 PM CDT Adult Senior Training And Development Rep Intake/History Adult Senior Training And Development Rep Intake/History Entered On: 04/11/2015 14:08 CDT Performed On: 04/11/2015 14:06 CDT by JUSTINA LOBATO LPN Intake Chief Complaint : 1. Discuss test results 2. Discuss seeing an sergeant missile crewman Peripheral Pulse Rate : 80 /min Respiratory [...] Communication Mode : Verbal, Written Languages : Pakistani Is Patient Female and 13-50 no hysterectomy [...] LOBATO LPN - 04/11/2015 14:06 CDT Source: [facility] POWERCHART Document Id: [id number] CDT!36 documented in this encounter Plan of Treatment Not on filedocumented as of this encounter Visit Diagnoses Not on filedocumented in this encounter Additional Health Concerns Assessment Noted Time PHQ-9 Depression Total Score: 6 01/31/2015 12:28 PM CD T documented as of this encounter
--- OUTSIDE RECORDS SUMMARY | 2022-05-28 06:58 | XMS_ITS | Encounter Summary ---
:1945 Author Organization [facility] Address [address] [place] [address] Care Team Providers Name Role Phone Unavailable Primary Care Provider Unavailable Encounter Details Date Type Department Care Team Description 05/25/2015 Hospital Encounter HX [facility] FB LAB Piero Grier M.D. [address] [place], [place] [phone] (Wo rk) Social History [...] do you attend samaritan or Never 2021 buddhism services? Do you [...] Result Letter 28 May 2015 JONNATHAN COSTA [address] [facility] [place] [id number] Dear JONNATHAN COSTA, Your cholesterol is better [...] performed 04/06/2015 Sincerely, PIERO HERNANDEZ [address] [facility] [place] [address] Electronic Signature Electronically Signed By: PIERO WEISS MD On: 28 May 2015 This document has images extracted. Source: [facility] POWERCHART Document Id: [id number] Electronically signed by Karen, [facility] Senior It Assistant [id number] at 02/24/2017 2:58 AM CDT documented in [...] for FH and FDB is available throu [facility]: FH/ADH Genetic Reflex Saleh el (test ADHP). Acquired (non-genetic) causes of markedly increased LDL cholesterol include cholestatic liver disease due to the presence of LpX. If a genetic form of hypercholesterolemia is suspected, family studies including biochemical testing fo r lipids (total cholesterol,triglycerides, LDL cholesterol and HDL cholesterol) are recommended. ??Please contact the laboratory at or the on-line test catalog at [employer] for information about how to order these [...] AST (Aspartate Aminotransferase) (05/25/2015 6:57 AM CDT) [employer] Method Time Signature Aspartate 21 8 - 48 POWERCHART Aminotransferase UNITL (AST), S Specimen (Source) Anatomical Collection Method Collection Time Re ceived Time Location / / Volume Laterality Blood 05/25/2015 6:57 AM CDT Piero Alejandro M.D. LAB BLOOD ADD-ON Performing Organization Address City/State/ZIP Code Phon e Number POWERCHART (ABNORMAL) Lipid Panel (05/25/2015 6:57 AM CDT) [employer] Method Time Signature Calculated LDL Test Not [...]
--- OUTSIDE RECORDS SUMMARY | 2022-05-28 06:58 | XMS_ITS | Encounter Summary ---
:1945 Author Organization [facility] Address [address] [place] [address] Care Team Providers Name Role Phone Unavailable Primary Care Provider Unavailable Encounter Details Date Type Department Care Team Description 04/18/2014 Hospital Encounter HX [facility] FB LAB Piero Grier M.D. [address] [place], [place] [phone] (Wo rk) Social History [...] do you attend bahai or Never 2021 advent services? Do you [...] Sig Dispensed Refills Start Date End Date losartan (for_COZAAR) Take 50 mg by mouth [...] Result Letter 21 April 2014 JONNATHAN COSTA [address] [facility] [id number] Dear JONNATHAN COSTA, Your A1c is stable. [...] 10/13/2013 - <=5.6 Sincerely, PIERO MURILLO [address] [facility] [place] [address] Electronic Signature Electronically Signed By: PIERO MURILLO MD On: 21 April 2014 This document has images extracted. Source: [facility] PixcCHART Document Id: [id number] Electronically signed by Conversion, [facility] [place] Gold Attendant [id number] at 02/25/2017 1:43 PM CDT documented in this encounter Plan of Treatment Not on filedocumented as of this encounter Procedures Procedure Name Priority Date/Time Associated Diagnosis Comme nts LIPID PANEL, S Routine 04/18/2014 8:04 AM Results for this CDT procedure are i n the results section . documented in this encounter Results (ABNORMAL) Lipid Panel (04/18/2014 8:04 AM CDT) [facility] Method Time Signature Cholesterol, 193 0 [...]
--- OUTSIDE RECORDS SUMMARY | 2022-05-28 06:58 | XMS_ITS | Encounter Summary ---
:1945 Author Organization [facility] Address [address] [place] [address] Care Team Providers Name Role Phone Unavailable [...] do you attend mormonism or Never 2021 christianity services? Do you [...]
--- OUTSIDE RECORDS SUMMARY | 2022-05-28 06:58 | XMS_ITS | Encounter Summary ---
:1945 Author Organization [facility] Address [address] [place] [address] Care Team Providers Name Role Phone Unavailable Primary Care Provider Unavailable Encounter Details Date Type Department Care Team Description 01/31/2015 Hospital Encounter HX [facility] FB FAMILYPRA Piero Moya i, M.D. [address] [place] [address] (Wo rk) Social History Tobacco [...] do you attend cheondoism or Never 2021 presybeterian services? Do you [...] Weiss M.D. - 01/31/2015 9:01 AM CDT [id number] CHIEF COMPLAINT/ REASON FOR VISIT Review medications, [...] did have a bladder capacity checked at [place] about 3 years ago and he is fine. Jonnathan does not have any issues falling asleep. He does state that he is waking up not as much rested as previously. PHQ9 is 6, TINEO Index of [place] is 6, safety screening reviewed. Discussed end [...] surgery at the OR. 8. Tonsillectomy. 9. AGNIESZKA, prescribed CPAP therapy but is currently not using. PREVENTIVE SERVICES: Tobacco use: None. Lipid panel: 07/07/2013. Colonoscopy: 08/10/13. Tetanus booster: updated today. Zoster vaccine: 06/2012 at the OR. Pneumovax: 11/15/2008. Prevnar: updated today. SOCIAL HISTORY He is . He doesn't smoke. 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 FAMILY HISTORY Mother had hypertension. There is no colon or prostate cancer in the family. There is no diabetes. Father had an AL at age 76. Asthma and mental illness [...] behalf by Karen Jones, a trained medical coding technician. The creation of this record is based on the scribe's personal observations and the provider's statements to them. This document has been checked and approved by the attending provider. Piero Hinton M.D./ Electronically Signed By: PIERO WEISS MD On: 03/15/2015 10:32 PM Source: [facility] MHSDOLBEYNONRADSYS Document Id: [id number] documented in this encounter Procedure Notes Conversion, Historical Provider Ser - 01/31/2015 9:29 AM CDT Vision Testing Vision Testing Entered On: 01/31/2015 9:30 CDT Performed On: 01/31/2015 9:29 CDT by JOSE BAGLEY LPN Vision Testing Eye, Right w/o Correction : 20/40 Eye, Left w/o Correction : 20/20 JOSE BAGLEY LPN - 01/31/2015 9:29 CDT Source: [facility] POWERCHART Document Id: [id number] CDT!4 documented in this encounter Miscellaneous Notes [...] BAGLEY LPN - 01/31/2015 12:28 CDT Source: [employer] Document Id: [id number] CDT!13 Miscellaneous - Conversion, Historical Provider Ser [...] BAGLEY LPN - 01/31/2015 9:26 CDT Source: [employer] Document Id: [id number] CDT!8 Miscellaneous - Conversion, Historical Provider Ser - 01/31/2015 9:22 AM CDT Adult Blueprint Reproducer Intake/History Adult Blueprint Reproducer Intake/History Entered On: 01/31/2015 9:26 CDT Performed On: 01/31/2015 9:22 CDT by MC LUNA, JOSE ADÁN TELEVISION PRODUCTION TECHNICIAN Intake Chief Complaint : physical Temperature Core [...] Information Given By : Patient Languages : Moroccan Is Patient Female and 13-50 no hysterectomy : No JOSE BAGLEY TELEVISION PRODUCTION TECHNICIAN - 01/31/2015 9:22 CDT Subjective Pain Symptoms : No JOSE BAGLEY IRMA - 01/31/2015 9:22 CDT Dependent Habits Tobacco Use/Currently Using : No Smoking Status : Former smoker JOSE BAGLEY [facility] - 01/31/2015 9:22 CDT Tobacco Use Grid Type : Cigarettes Last Use : quit 1980 JOSE BAGLEY [facility] - 01/31/2015 9:22 CDT Caffeine Use Grid Caffeine Use : Current Type : Coffee Frequency : Daily JOSE BAGLEY TELEVISION PRODUCTION TECHNICIAN - 01/31/2015 9:22 CDT Recreational Drug Use Grid Drug Use : None JOSE BAGLEY TELEVISION PRODUCTION TECHNICIAN - 01/31/2015 9:22 CDT ID Screen Drug Resistant Organism : No Travel Within Last 21 Days : No Contact with someone with Ebola : No JOSE BAGLEY IRMA - 01/31/2015 9:22 CDT Source: [employer] Document Id: [id number] CDT!41 Miscellaneous - Conversion, Historical Provider Ser - 01/31/2015 9:22 AM CDT Health Assessment Health Assessment Entered On: 01/31/2015 9:26 CDT Performed On: 01/31/2015 9:22 CDT by JOSE BAGLEY TELEVISION PRODUCTION TECHNICIAN Health Assessment Complete Health Assessment Complete or Modified : Annual Health Assessment Annual Health Assessment Completed : Yes JOSE BAGLEY IRMA - 01/31/2015 9:22 CDT Nutrition Nutrition Risk Factors by History Adult : None JOSE BAGLEY IRMA - 01/31/2015 9:22 CDT Functional Current Daily Living Assistance : None JOSE BAGLEY TELEVISION PRODUCTION TECHNICIAN - 01/31/2015 9:22 CDT Dependent Habits Tobacco Use/Currently Using : No Smoking Status : Former smoker JOSE BAGLEY TELEVISION PRODUCTION TECHNICIAN - 01/31/2015 9:22 CDT Caffeine Use Grid Caffeine Use : Current Type : Coffee Frequency : Daily JOSE BAGLEY TELEVISION PRODUCTION TECHNICIAN - 01/31/2015 9:22 CDT Recreational Drug Use Grid Drug Use : None JOSE BAGLEY [facility] - 01/31/2015 9:22 CDT Psychosocial Domestic Abuse Concerns : None Behavioral Health Screen/Safety Assmt : No Mandaeism Preference : Unknown JOSE BAGLEY [facility] - 01/31/2015 9:22 CDT Advance Directive Advanced Directives : No Advance Directive Additional Information : No JOSE BAGLEY [facility] - 01/31/2015 9:22 CDT Educ Needs Learning Style Preference Adult Grid Patient : Printed materials Family : Printed materials JOSE BAGLEY [facility] - 01/31/2015 9:22 CDT Source: [facility] CliqCHART Document Id: [id number] CDT!30 documented in this encounter Plan of [...] Erythrocytes 4.12 (L) 4.32 - POWERCHART 5.72 [id number] Hemoglobin 12.6 (L) 13.5 - POWERCHART 17.5 [...] for FH and FDB is available throu [facility]: FH/ADH Genetic Reflex Saleh [...] at or the on-line test catalog at [employer] for information about how to order these [...]
--- OUTSIDE RECORDS SUMMARY | 2022-05-28 06:58 | XMS_ITS | Encounter Summary ---
:1945 Author Organization [facility] Address [address] [place] [address] Care Team Providers Name Role Phone Unavailable Primary Care Provider Unavailable Encounter Details Date Type Department Care Team Description 04/19/2015 Hospital Encounter HX [facility] FBHB FAMILYPRA MyrMiesha felton, PHYSICAL THERAPIST AIDE, C.N.P. [address] [place] [address] (Wo rk) Social History Tobacco [...] you attend jehovah's witness or Never 2021 rastafarian services? Do you [...] of this encounter Progress Notes Petr Dial, FAROOQ, C.N.P. - 04/19/2015 11:29 AM CDT [id number] CHIEF COMPLAINT/REASON FOR VISIT Diabetes neuropathy, here [...] neuropathy. Here for diabetes education. Please see braider operator intake form in the electronic medical record. Today 30 minutes was spent counseling and coordinating care including discussing diet, how to increase protein, eat healthy carbohydrates. We reviewed carbohydrate counting. He was given several handouts with information on diet and carbohydrate counting and recommendedservings per day. Petr Dial, ZULEYKA/aos Electronically Signed By: PETR DIAL CNP On: 04/20/2015 11:12 AM Source: [facility] MHSDOLBEYNDAVONS Document Id: [id number] documented in this encounter Nursing Notes Petr Dial APRN, C.N.P. - 04/19/2015 1:02 PM CDT Senior Director Of [employer] Solutions Intake (Adult) Senior Director Of [employer] Solutions Intake (Adult) Entered On: 04/19/2015 13:04 CDT [...] - 04/19/2015 13:02 CDT MIESHA DIALMaryana Strong [facility] - 04/19/2015 13:02 CDT PETR DIALTae [facility] - 04/19/2015 13:02 CDT Source: [facility] POWERCHART Document Id: [id number] CDT!36 Petr Dial APRN, C.N.P. - 04/19/2015 [...] that are unsaturated. ?? Talk to your hydraulics engineer about safe sugar substitutes. ?? Avoid added [...] of Nutrition and Dietetics www.eatright.org ?? The [place] [employer] 012-591-3983 www.diabetes.org ?? [place] [address]. All rights reserved. This information is not intended as a substitute for professional medical care. Always follow your healthcare professional's instructions. This document has images extracted. Please consider using [employer] for all your patient education needs. Source: [employer] Document Id: [id number] documented in this encounter Miscellaneous Notes Miscellaneous [...] MCINTOSH LPN - 04/19/2015 11:44 CDT Source: [employer] Document Id: [id number] CDT!7 Miscellaneous - Petr Dial APRN C.N.P. - 04/19/2015 11:43 AM CDT Ambulatory Patient Summary [address] [id number] Visit Information Name: RENEEBETH HANSON [facility] Number: [id number] Current Date: 04/19/2015 11:43:45 [...] that are unsaturated. ?? Talk to your hydraulics engineer about safe sugar substitutes. ?? Avoid added [...] of Nutrition and Dietetics www.eatright.org ?? The [place] [employer] 078-812-3729 www.diabetes.org ?? [address], [place] [address]. All rights reserved. This information is not [...] you dont have one. Go to [email or web address] and click on Create Your Account. Then, follow the directions to complete the online form. Youll be asked for your [facility] number which you can find at the top of this document. Your Goals/Additional instructions: This document has images extracted. Please consider using [employer] for all your patient education needs. Source: [facility] POWERCHART Document Id: [id number] Miscellaneous - Petr Dial APRN, C.N.P. - 04/19/2015 11:43 AM CDT Ambulatory Discharge Medication List [address] [id number] Visit Information Name: BETH COSTA [facility] Number: [id number] Visit Date: 04/19/2015 11:43:43 [...] of emergency. Electronically Signed By: PETR DIAL VIOLIN RESTORER Signed On:19-APR-2015 11:43:24 Additional Information: Source: [facility] POWERCHART Document Id: [id number] Miscellaneous - Vashti Mcintosh L.P.NMauro - 04/19/2015 11:42 AM CDT Adult Business Technology Architect Intake/History Adult Business Technology Architect Intake/History Entered On: 04/19/2015 11:44 CDT Performed [...] Weight Clinic : 110.8 kg VASHTI MCINTOSH LID[facility] - 04/19/2015 11:42 CDT General Info Information Given By : Patient Preferred Communication Mode : Verbal Languages : Amharic Is Patient Female and 13-50 no hysterectomy : No VASHTI MCINTOSH LIDDER - 04/19/2015 11:42 CDT Subjective Pain Symptoms : No VASHTI MCINTOSH LIDDER - 04/19/2015 11:42 CDT Dependent Habits Tobacco Use/Currently Using : No Exposure to Tobacco Smoke : Other: quit 40 years ago Smoking Status : Former smoker VASHTI MCINTOSH [facility] - 04/19/2015 11:42 CDT Tobacco Use Grid Type : Cigarettes VASHTI MCINTOSH [facility] - 04/19/2015 11:42 CDT Caffeine Use Grid Caffeine Use : Current Type : Coffee Frequency : Daily VASHTI MCINTOSH [facility] - 04/19/2015 11:42 CDT Recreational Drug Use Grid Drug Use : None VASHTI MCINTOSH LIDDER - 04/19/2015 11:42 CDT Source: [employer] Document Id: [id number] CDT!37 documented in this encounter Plan of Treatment Not on filedocumented as of this encounter Visit Diagnoses Not on filedocumented in this encounter Additional Health Concerns Assessment Noted Time PHQ-9 Depression Total Score: 6 01/31/2015 12:28 PM CD T documented as of this encounter
--- OUTSIDE RECORDS SUMMARY | 2022-05-28 06:58 | XMS_ITS | Encounter Summary ---
:1945 Author Organization [facility] Address [address] [place] [address] Care Team Providers Name Role Phone Unavailable Primary Care Provider Unavailable Encounter Details Date Type Department Care Team Description 07/07/2013 Hospital Encounter [facility]X [facility] FAMILYPRA Piero Moya i, M.D. [address] [place] [phone] (Wo rk) Social History Tobacco [...] do you attend temple or Never 2021 lutheran services? Do you [...] Weiss M.D. - 07/07/2013 9:42 AM CDT [id number] CHIEF COMPLAINT/ REASON FOR VISIT Review medications, [...] drugs. SYSTEMS REVIEW He goes to the [place] for much of his medical care. He [...] dysfunction 6. Pulmonary symptomatology, diagnosis at the [place] unclear, but probably some degree of COPD 7. Status post left cataract surgery at the [place] 8. Tonsillectomy PREVENTIVE SERVICES: Tobacco use: None. Lipid panel: 07/07/2013 Colonoscopy: ordered today. Influenza: 07/07/2013 Tetanus booster: 01/14/2009 Zoster vaccine: 06/2012 at the [place] Pneumovax: 11/15/2008 SOCIAL HISTORY He is . He doesn't smoke. 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 FAMILY HISTORY Mother had hypertension. There is no colon or prostate cancer in the family. There is no diabetes. Father had an CA at age 76. Asthma and mental illness [...] behalf by Krista Sotelo, a trained medical insurance coding specialist. The creation of this record is based on the scribe's personal observations and the provider's statements to them. This document has been christie cked and approved by the attending provider. Piero Murillo M.D./shelly Electronically Signed By: PIERO MURILLO MD On: 07/23/2013 08:17 AM Source: [facility] MHSDOLBEYNONRADSYS Document Id: [id number] documented in this encounter Nursing Notes Lucila Blevins - 11/03/2014 10:12 AM CST panel managment Document Contains Addenda Addendum by LUCILA BLEVINS LPN on 04 November 2014 13:53 SKIN LIFTER BACON Pt returned call and will call in [...] BLEVINS LPN On: 11/03/2014 10:13 AM Source: [facility] POWERCHART Document Id: [id number] LIFTER BACON Roxann Echols - 07/08/2013 11:42 AM CDT Colonoscopy Document Contains Addenda Addendum by ROXANN ECHOLS on 21 July 2013 16:[address] [facility] in [address] [address] Referral Authorization: Procedure or visit authorized for: Colonoscopy (CPT code G0105) Referred by: Dr. Murillo Contact Location: [facility] [place] Contact Referred to: Dr. Major Contact Location: [facility] [place] Contact Authorization Needed: yes or _ X _ no If yes, Referral valid: From: To: Number of visits approved for: Authorized by: [email or web address] provider self service Contact Number: Date Authorized: 07-21-2013 Reference Number: or not applicable per [employer] Instructor. Individual that received the Referral Authorization: LML [...] of referring healthcare provider notes sent to [facility]. Modified by and Electronically Signed by: ROXANN ECHOLS On: 07/21/2013 08:50 AM Addendum by ROXANN ECHOLS on 12 July 2013 10:[address] [facility] [place] [address] Patient Communication for follow up treatment for: _Colonoscopy_ X Attempt made to contact patient made on: _07-12-2013 (per patient's request)__. a. Patient is schedule to be seen on: . b. Patient is refusing recommended treatment at this time. c. X Message left for the patient at : _[phone]_ed return call to: Roxann Echols LPN at [phone]. d. Individual that has contacted the patient: [...] by: ROXANN ECHOLS On: 07/12/2013 10:[address] [facility] [place] [address] Patient Communication for follow up treatment for: Colonoscopy _ __ Attempt made to contact patient made on: __[phone]; patient requested a call at another time_. a. Patient is schedule to be seen on: . b. Patient is refusing recommended treatment at this time. c. Message left for the patient at : to return call to: Roxnan Echols LPN at [phone]. d. Individual that has contacted the patient: [...] ROXANN ECHOLS On: 07/08/2013 11:43 AM Source: [facility] Document Id: [id number] documented in this encounter Miscellaneous Notes Miscellaneous [...] he prefers to wait until July. [facility] Document Id: [id number] Miscellaneous - Piero Weiss M.D. - 07/07/2013 12:35 PM CDT Ambulatory Patient Summary [address] [address] Visit Information Name: BETH COSTA [facility] Number: [id number] Current Date: 07/07/2013 12:35:20 Physicians [...] No Appointments found Your Goals/Additional instructions: Source: [facility] POWERCHART Document Id: [id number] Miscellaneous - Piero Weiss M.D. - 07/07/2013 12:35 PM CDT Ambulatory Depart Summary [address] [address] Visit Information Name: BETH COSTA [facility] Number: [id number] Visit Date: 07/07/2013 12:35:19 Attending [...] your provider for clarification. Additional Information: Source: [facility] POWERCHART Document Id: [id number] Miscellaneous - Conversion, Historical Provider Ser - [...] BAGLEY LPN - 07/07/2013 10:38 CDT Source: [facility] Document Id: [id number] CDT!7 Miscellaneous - Conversion, Historical Provider Ser - 07/07/2013 10:35 AM CDT Adult Painting And Coating Worker Intake/History Adult Painting And Coating Worker Intake/History Entered On: 07/07/2013 10:37 CDT Performed [...] Mass Index : 29.8 kg/m2 JOSE BAGLEY [facility] - 07/07/2013 10:35 CDT General Info Information Given By : Patient Languages : [place] Islander JOSE BAGLEY [facility] - 07/07/2013 10:35 CDT Subjective Pain Symptoms : No JOSE BAGLEY [facility] - 07/07/2013 10:35 CDT Dependent Habits Tobacco Use/Currently Using : No Tobacco Use/Last 12 months : No Smoking Status : Former smoker JOSE BAGLEY [facility] - 07/07/2013 10:35 CDT Tobacco Use Grid Last Use : former JOSE BAGLEY [facility] - 07/07/2013 10:35 CDT Caffeine Use Grid Caffeine Use : Current Type : Coffee Frequency : Daily JOSE BAGLEY [facility] - 07/07/2013 10:35 CDT Recreational Drug Use Grid Drug Use : None JOSE BAGLEY [facility] - 07/07/2013 10:35 CDT Source: [facility] Document Id: [id number] CDT!36 Miscellaneous - Conversion, Historical Provider Ser [...] Daily Living Assistance : None JOSE BAGLEY [facility] SHAKER - 07/07/2013 10:35 CDT Dependent Habits Tobacco [...] Domestic Abuse Concerns : None JOSE BAGLEY [facility] - 07/07/2013 10:35 CDT Advance Directive Advanced Directives : No JOSE BAGLEY LPN - 07/07/2013 10:35 CDT Educ Needs Learning Style Preference Adult Grid Patient : Printed materials Family : Printed materials JOSE BAGLEY LPN - 07/07/2013 10:35 CDT Source: [facility] POWERCHART Document Id: [id number] CDT!27 documented in this encounter Plan of Treatment Not on filedocumented as of this encounter Visit Diagnoses Not on filedocumented in this encounter
--- OUTSIDE RECORDS SUMMARY | 2022-05-28 06:58 | XMS_ITS | Encounter Summary ---
:1945 Author Organization [facility] Address [address] [place] [address] Care Team Providers Name Role Phone Unavailable Primary Care Provider Unavailable Encounter Details Date Type Department Care Team Description 08/22/2010 Hospital Encounter HX [facility] José Collazo M.D. [address] [place] [phone] (Wo rk) Social History Tobacco [...] do you attend anglican or Never 2021 synagogue services? Do you [...] Phillips M.D. - 08/22/2010 12:00 AM CST [id number] IMPRESSION/REPORT/PLAN The patient is ASA Class II [...] dysfunction 6. Pulmonary symptomatology, diagnosis at the [place] unclear, but probably some degree of COPD 7. Status post [place] the [place] PREVENTIVE SERVICES Age: 65. Diphtheria/Tetanus: 01/14/2009. Influenza [...] PHILLIPS MD On 08/22/2010 03:48 PM Source: [facility] MHSDOLBEYNONRADSYS Document Id: [id number] GROUND CLEANING ATTENDANT documented in this encounter Nursing Notes Aleida Polanco L.PMauroNMauro - 08/27/2010 7:52 AM CST pre-op pre-op faxed to [place] Electronically Signed By:ALEIDA POLANCO LPN On 08/27/2010 07:53 am Source: [facility] [employer] Document Id: [id number] GROUND CLEANING ATTENDANT documented in this encounter Miscellaneous Notes Miscellaneous - Kelly Phillips M.D. - 08/27/2010 8:12 AM CST Reminder Msg Document Contains Addenda Addendum by ALEIDA POLANCO LPN on 28 August 2010 13:07:59 CAMPGROUND CLEANING ATTENDANT called wt results From: KELLY PHILLIPS MD To: ALEIDA POLANCO LPN Sent: 08/27/2010 08:12:24 CAMPGROUND CLEANING ATTENDANT ! Show up: 08/27/2010 08:12:00 CAMPGROUND CLEANING ATTENDANT Subject: Reminder Msg Actions: Notify patient of results Due Date/Time: 08/27/2010 08:12:00 CAMPGROUND CLEANING ATTENDANT Source: [facility] POWERCHART Document Id: [id number] Miscellaneous - Kelly Phillips M.D. - 08/22/2010 11:46 AM CST Reminder Msg Document Contains Addenda Addendum by ALEIDA POLANCO LPN on 28 August 2010 13:07:44 CAMPGROUND CLEANING ATTENDANT called with results patient will call back about starting new RX From: KELLY PHILLIPS MD To: ALEIDA POLANCO LPN Sent: 08/22/2010 11:46:06 CAMPGROUND CLEANING ATTENDANT ! Show up: 08/22/2010 11:44:00 CAMPGROUND CLEANING ATTENDANT Subject: Reminder Msg Actions: Notify patient of results Due Date/Time: 08/22/2010 11:44:00 CAMPGROUND CLEANING ATTENDANT Source: [facility] POWERCHART Document Id: [id number] Miscellaneous - Kelly Phillips M.D. - 08/22/2010 10:43 AM CST Reminder Msg Document Contains Addenda Addendum by ALEIDA POLANCO LPN on 28 August 2010 13:06:55 CAMPGROUND CLEANING ATTENDANT called with results From: KELLY PHILLIPS MD To: ALEIDA POLANCO LPN Sent: 08/22/2010 10:43:19 CAMPGROUND CLEANING ATTENDANT ! Show up: 08/22/2010 10:42:00 CAMPGROUND CLEANING ATTENDANT Subject: Reminder Msg Actions: Notify patient of results Due Date/Time: 08/22/2010 10:42:00 CAMPGROUND CLEANING ATTENDANT Source: [facility] [employer]CH[facility] Document Id: [id number] Reji - Aleida Polanco L.P.NMauro - 08/22/2010 9:35 AM CST Ambulatory Vitals Height Weight Ambulatory Vitals Height Weight Entered On: 08/22/2010 9:35 CAMPGROUND CLEANING ATTENDANT Performed On: 08/22/2010 9:35 CAMPGROUND CLEANING ATTENDANT by ALEIDA POLANCO LPN Vitals/Ht/Wt Temperature Core: 36.6C(Converted to: 97.9DegF) SpO2: 97% Oxygen Therapy: Room air ALEIDA POLANCO LPN - 08/22/2010 9:35 CAMPGROUND CLEANING ATTENDANT Source: [facility] POWERCHART Document Id: [id number] CAMPGROUND CLEANING ATTENDANT!5 GROUND CLEANING ATTENDANT Miscellaneous - Aleida Polanco L.P.N. - 08/22/2010 9:32 AM CST Adult Manager Application Intake/History Adult Manager Application Intake/History Entered On: 08/22/2010 9:34 CAMPGROUND CLEANING ATTENDANT Performed On: 08/22/2010 9:32 CAMPGROUND CLEANING ATTENDANT by ALEIDA POLANCO LPN Intake Chief Complaint: [...] 30kg/m2 ALEIDA POLANCO LPN - 08/22/2010 9:32 CAMPGROUND CLEANING ATTENDANT Subjective Pain Symptoms: No ALEIDA POLANCO LPN - 08/22/2010 9:32 CAMPGROUND CLEANING ATTENDANT Dependent Habits Tobacco Use/Currently Using: No Alcohol Use: Yes ALEIDA POLANCO LPN - 08/22/2010 9:32 CAMPGROUND CLEANING ATTENDANT Caffeine Use Grid Caffeine Use: Current Type: Coffee Frequency: Daily ALEIDA POLANCO LPN - 08/22/2010 9:32 CAMPGROUND CLEANING ATTENDANT Recreational Drug Use Grid Drug Use: None ALEIDA POLANCO LPN - 08/22/2010 9:32 CAMPGROUND CLEANING ATTENDANT Allergies Latex Screening: No ALEIDA POLANCO LPN - 08/22/2010 9:32 CAMPGROUND CLEANING ATTENDANT Allergies (Active) penicillin Estimated Onset Date: Unspecified ; Created By: ALEIDA POLANCO LPN; Reaction Status:Active ; Category: Drug ; Substance: penicillin ; Type: Allergy ; Updated By: ALEIDA POLANCO LPN; Source: Paper Chart/Abstracting ; Reviewed Date: 08/22/2010 9:26 CAMPGROUND CLEANING ATTENDANT sulfa drugs Estimated Onset Date: Unspecified ; Created By: ALEIDA POLANCO LPN; Reaction Status: Active ; Category: Drug ; Substance: sulfa drugs ; Type: Allergy ; Updated By: ALEIDA POLANCO LPN; Source: Paper Chart/Abstracting ; Reviewed Date: 08/22/2010 9:26 CAMPGROUND CLEANING ATTENDANT Source: [facility] POWERCHART Document Id: [id number] CAMPGROUND CLEANING ATTENDANT!31 GROUND CLEANING ATTENDANT documented in this encounter Plan of Treatment Not on filedocumented as of this encounter Visit Diagnoses Not on filedocumented in this encounter
--- OUTSIDE RECORDS SUMMARY | 2022-05-28 06:58 | XMS_ITS | Encounter Summary ---
:1945 Author Organization [facility] Address [address] [place] [address] Care Team Providers Name Role Phone Unavailable Primary Care Provider Unavailable Encounter Details Date Type Department Care Team Description 02/09/2015 Hospital Encounter HX NO MAPPING Ewa Alejandro M.D. [address] [place], [place] [phone] (Wo rk) Social History [...] Coding Summary-Paper Based CODING DATE: 02/21/2015 FINAL [facility] STATUS: * Discharged to Home or Self [...] LYMAN Date Saved: 02/21/2015 03:40 pm [facility] Document Id: [id number] documented in this encounter Plan of Treatment Not on filedocumented as of this encounter Visit Diagnoses Not on filedocumented in this encounter Additional Health Concerns Assessment Noted Time PHQ-9 Depression Total Score: 6 01/31/2015 12:28 PM CD T documented as of this encounter
--- OUTSIDE RECORDS SUMMARY | 2022-05-28 06:58 | XMS_ITS | Encounter Summary ---
:1945 Author Organization [facility] Address [address] [place] [address] Care Team Providers Name Role Phone Unavailable Primary Care Provider Unavailable Encounter Details Date Type Department Care Team Description 04/18/2014 Hospital Encounter HX [facility] Ewa Grier M.D. [address] [place], [place] [phone] (Wo rk) Social History [...] do you attend voodoo or Never 2021 voodoo services? Do you [...]
--- OUTSIDE RECORDS SUMMARY | 2022-05-28 06:58 | XMS_ITS | Encounter Summary ---
:1945 Author Organization [facility] Address [address] [place] [address] Care Team Providers Name Role Phone Unavailable Primary Care Provider Unavailable Encounter Details Date Type Department Care Team Description 10/13/2013 Hospital Encounter HX [facility] LAB Piero Grier M.D. [address] [place], [place] [phone] (Wo rk) Social History [...] do you attend bahai or Never 2021 uatsdin services? Do you [...] Piero Weiss M.D. - 10/23/2013 10:05 PM SLAT BASKET MAKER HELPER MACHINE Custom Result Letter 23 October 2013 JONNATHAN COSTA [id number] [facility] [place] [id number] Dear JONNATHAN COSTA, The sugar seems improved as the A1C is lower. [place] is less than 7. T he cholesterol [...] - 6.0 Sincerely, PIERO MURILLO [address] [facility] [place] [address] Electronic Signature Electronically Signed By: PIERO MURILLO MD On: 23 October 2013 This document has images extracted. Source: [facility] POWERCHART Document Id: [id number] Electronically signed by Conversion, [facility] Legal Cashier [id number] at 02/25/2017 2:45 PM CDT documented in this encounter Plan of Treatment Not on filedocumented as of this encounter Procedures Procedure Name Priority Date/Time Associated Comments Diagnosis LIPID PANEL, S Routine 10/13/2013 8:04 Results fo r this AM SLAT BASKET MAKER HELPER MACHINE procedure are i n the results section. ASPARTATE Routine 10/13/2013 8:04 Results for this AMINOTRANSFERASE (AST), AM SLAT BASKET MAKER HELPER MACHINE proc edure are in S/P the results section. documented in this encounter Results (ABNORMAL) Lipid Panel (10/13/2013 8:04 AM SLAT BASKET MAKER HELPER MACHINE) [facility] Method Time Signature Cholesterol, 222 (H) 0 - 200 POWERCHART Total MGDL HX HDL 39.0 (L) 40.0 - POWERCHART 60.0 MGDL Triglycerides 351 (H) 0 - 150 POWERCHART MGDL Calculated LDL 113 (H) 0 - 100 POWERCHART MGDL Specimen (Source) Anatomical Collection Method Collection Time Re ceived Time Location / / Volume Laterality Blood 10/13/2013 8:04 AM SLAT BASKET MAKER HELPER MACHINE Piero Alejandro M.D. LAB BLOOD ADD-ON Performing Organization Address City/State/[facility] Code Phon e Number POWERCHART AST (Aspartate Aminotransferase) (10/13/2013 8:04 AM SLAT BASKET MAKER HELPER MACHINE) [facility] Method Time Signature Aspartate 29 8 - 48 POWERCHART Aminotransferase UNITL (AST), S Specimen (Source) Anatomical Collection Method Collection Time Re ceived Time Location / / Volume Laterality Blood 10/13/2013 8:04 AM SLAT BASKET MAKER HELPER MACHINE Piero Alejandro M.D. LAB BLOOD ADD-ON Performing Organization Address City/State/ZIP Code Phon e Number POWERCHART documented in this encounter Visit Diagnoses Not on filedocumented in this encounter
--- OUTSIDE RECORDS SUMMARY | 2022-05-28 06:58 | XMS_ITS | Encounter Summary ---
:1945 Author Organization [facility] Address [address] [place] [address] Care Team Providers Name Role Phone Unavailable Primary Care Provider Unavailable Encounter Details Date Type Department Care Team Description 07/19/2013 Hospital Encounter HX [facility] FBHB LAB Piero Grier M.D. [address] [place], [place] [phone] (Wo rk) Social History [...] do you attend taoism or Never 2021 zoroastrian services? Do you [...] need to make some medication changes. Source: [facility] POWERCHART Document Id: [id number] Electronically signed by Conversion, [facility] Flask Fitter [id number] at 02/26/2017 2:51 AM CDT documented in [...] absence of malignant disease. Test Performed by: [place] [address] Teachers' Assistant: Naveen cox III, M.D. Specimen (Source) Anatomical [...] M.D. LAB BLOOD ADD-ON Performing Organization Address City/[facility] Code Phon e Number POWERCHART AST (Aspartate Aminotransferase) (07/19/2013 9:23 AM CDT) [facility] Method Time Signature Aspartate 31 8 - 48 POWERCHART Aminotransferase UNITL (AST), S Specimen (Source) Anatomical Collection Method Collection Time Re ceived Time Location / / Volume Laterality Blood 07/19/2013 9:23 AM CDT Piero Alejandro M.D. LAB BLOOD ADD-ON Performing Organization Address City/[facility]/ZIP Code Phon e Number POWERCHART (ABNORMAL) Lipid Panel (07/19/2013 9:23 AM CDT) [facility] gist Method Time Signature Cholesterol, 204 (H) [...]
--- OUTSIDE RECORDS SUMMARY | 2022-05-28 06:58 | XMS_ITS | Encounter Summary ---
:1945 Author Organization [facility] Address [address] [place] [address] Care Team Providers Name Role Phone Unavailable Primary Care Provider Unavailable Encounter Details Date Type Department Care Team Description 08/09/2013 Hospital Encounter HX [facility] Piero Moya i, M.D. [address] [place] [address] (Wo rk) Social History Tobacco [...] do you attend evangelical or Never 2021 protestant services? Do you [...] Comments Blood Pressure 138/76 08/09/2013 10:17 AM WEB PUBLISHER Pulse 68 08/09/2013 10:15 AM WEB PUBLISHER Temperature - - Respiratory Rate 16 08/09/2013 10:15 AM WEB PUBLISHER Oxygen Saturation - - Inhaled Oxygen Concentration - - Weight 112 kg (246 lb 14.6 oz) 08/09/2013 10:15 AM WEB PUBLISHER Height 192 cm (6' 3.59) 08/09/2013 10:15 AM WEB PUBLISHER Body Mass Index 30.38 08/09/2013 10:15 AM WEB PUBLISHER documented in this encounter Medications at Time [...] Rojas M.D. - 08/09/2013 10:00 AM CST [id number] CHIEF COMPLAINT/ REASON FOR VISIT Discuss test [...] Hypercholesterolemia: Beth will [facility] up [facility] the [facility] to change his [facility]. He will discontinue [...] behalf by Krista Sotelo, a trained medical assistant secretary. The creation of this record is based on the scribe's personal observations and the provider's statements to them. This document has been christie cked and approved by the attending provider. Piero Roy M.D./shelly Electronically Signed By: PIERO ROY MD On: 08/22/2013 11:04 PM Source: [facility] MHSDOLBEYNONRADSYS Document Id: [id number] PUBLISHER documented in this encounter Miscellaneous Notes Miscellaneous - Lucila Crain - 12/28/2014 2:26 PM CDT *Medication Refill Msg Document Contains Addenda Addendum by FREYA REICH on 29 December 2014 07:16:25 CDT last message put in error. Addendum by FREYA REICH on 29 December 2014 07:15:47 CDT From: FREYA REICH (FB Darke Medication Refill) To: PIERO ROJAS MD; Sent: 12/29/2014 07:15:47 CDT Subject: RE: *Medication Refill Msg I pulled it off fax machine and put on your desk for signature. Addendum by PIERO ROJAS MD on 28 December 2014 17:57:02 CDT From: PIERO ROJAS MD To: Darke Medication Refill; Sent: 12/28/2014 17:57:02 CDT Subject: RE: *Medication Refill Msg ok done Addendum by FREYA REICH on 28 December 2014 14:29:50 CDT From: FREYA REICH ( Darke Medication Refill) To: PIERO ROJAS MD; Sent: 12/28/2014 14:29:50 CDT Subject: FW: *Medication Refill Msg From: LUCILA CRAIN LPN To: Darke Medication Refill; Sent: 12/28/2014 14:26:39 CDT Subject: *Medication Refill Msg Caller is: ( x ) Patient ( ) Mother ( ) Father ( ) Spouse ( ) Daughter ( ) Son ( ) Pharmacy ( ) Other: Provider: [facility] Name of Medications Needing Refill: Novalog insulin Last Refill Date: usually gets through [facility], but hasn't heard from them and needs for trip he will be taking next week Additional Information: indicates takes 15 units three times daily with meals Last / Future Appointment:08/09/13/ last A1c 04/18/14-7.8-will be scheduling appointment with Dr. Roy in January Disposition: ( ) Send to Pharmacy ( x ) Call to Pharmacy ( ) Patient will hot die picker Script ( ) Mail Rxto Patient Source: [facility] POWERCHART Document Id: [id number] Electronically signed by Karen, [facility] Side Seam Envelope Machine Operator [id number] at 02/26/2017 1:33 AM CDT Miscellaneous - Natalee Warren, L.P.N. - 03/29/2014 [...] was last seen 08/09/2013. Please advise. Source: [facility] POWERCHART Document Id: [id number] Miscellaneous - Natalee Warren, L.P.N. - 12/28/2013 [...] March for all labs? Please advise. Source: [facility] Celergo Document Id: [id number] Electronically signed by Karen, [facility] Side Seam Envelope Machine Operator [id number] at 02/26/2017 1:33 AM CDT Miscellaneous - Vashti Mcintosh L.PMauroN. - 09/23/2013 10:46 AM CST Diabetic Call Document Contains Addenda Addendum by VASHTI MCINTOSH LPN on 28 September 2013 9:22 WEB PUBLISHER Start dates changed to 10/20/2013. Addendum by PIERO ROY MD on 26 September 2013 11:46:56 WEB PUBLISHER From: PIERO ROY MD To: VASHTI MCINTOSH LPN; Sent: 09/26/2013 11:46:56 WEB PUBLISHER Subject: RE: Diabetic Call ok From: VASHTI MCINTOSH LPN To: PIERO ROY MD; Sent: 09/23/2013 10:46:04 WEB PUBLISHER Subject: Diabetic Call Patient due for a [...] Please advise. Source: [facility] POWERCHART Document Id: [id number] PUBLISHER Miscellaneous - Piero Rojas M.D. - 08/09/2013 11:24 AM WEB PUBLISHER Ambulatory Patient Summary [address] [address] Visit Information Name: BETH DURANOLAS [facility] Number: [id number] Current Date: 08/09/2013 11:24:00 [...] detail needed. Your Goals/Additional instructions: Source: [facility] POWERCHART Document Id: [id number] PUBLISHER Miscellaneous - Piero Rojas M.D. - 08/09/2013 11:23 AM WEB PUBLISHER Ambulatory Depart Summary [address] [address] Visit Information Name: BETH DURAN [facility] Number: [id number] Visit Date: 08/09/2013 11:23:59 [...] provider for clarification. Additional Information: Source: [facility] POWERCHART Document Id: [id number] PUBLISHER Miscellaneous - Conversion, Historical Provider Ser - 08/09/2013 10:17 AM WEB PUBLISHER Ambulatory Vitals Height Weight Ambulatory Vitals Height Weight Entered On: 08/09/2013 10:17 WEB PUBLISHER Performed On: 08/09/2013 10:17 WEB PUBLISHER by JOSE BAGLEY LPN Vitals/Ht/Wt Systolic Blood Pressure : 138 mmHg Diastolic Blood Pressure : 76 mmHg NIBP Mean : 97 mmHg BP Location : Left upper extremity Blood Pressure Cuff Size : Regular JOSE BAGLEY LPN - 08/09/2013 10:17 WEB PUBLISHER Source: [facility] POWERCHART Document Id: [id number] WEB PUBLISHER!7 Miscellaneous - Conversion, Historical Provider Ser - 08/09/2013 10:15 AM WEB PUBLISHER Adult Fiberglass Boat Assembly Supervisor Intake/History Document Has Been Updated Adult Fiberglass Boat Assembly Supervisor Intake/History Entered On: 08/09/2013 10:17 WEB PUBLISHER Performed On: 08/09/2013 10:15 WEB PUBLISHER by JOSE BAGLEY LPN Intake Chief Complaint [...] Mass Index : 30.38 kg/m2 JOSE BAGLEY [facility] - 08/09/2013 10:15 WEB PUBLISHER General Info Information Given By : Patient Languages : Ukrainian JOSE BAGLEY [facility] - 08/09/2013 10:15 WEB PUBLISHER Subjective Pain Symptoms : No JOSE BAGLEY [facility] - 08/09/2013 10:15 WEB PUBLISHER Dependent Habits Tobacco Use/Currently Using : No Tobacco Use/Last 12 months : No Smoking Status : Former smoker JOSE BAGLEY [facility] - 08/09/2013 10:15 WEB PUBLISHER Tobacco Use Grid Last Use : former JOSE BAGLEY [facility] - 08/09/2013 10:15 WEB PUBLISHER Caffeine Use Grid Caffeine Use : Current Type : Coffee Frequency : Daily JOSE BAGLEY [facility] - 08/09/2013 10:15 WEB PUBLISHER Recreational Drug Use Grid Drug Use : None JOSE BAGLEY [facility] - 08/09/2013 10:15 WEB PUBLISHER Allergy (As Of: 08/09/2013 10:17:37 WEB PUBLISHER) Allergies (Active) doxycycline Estimated Onset Date: Unspecified ; Reactions: severe rash ; Created By: HILARY PASCUAL MD; Reaction Status: Active ; Category: Drug ; Substance: doxycycline ; Type: Allergy ; Updated By: KELLY PASCUAL MD; Reviewed Date: 08/09/2013 10:13 WEB PUBLISHER penicillin Estimated Onset Date: Unspecified ; Created By: ALEIDA HEAD LPN; Reaction Status:Active ; Category: Drug ; Substance: penicillin ; Type: Allergy ; Updated By: ALEIDA HEAD LPN; Source: Paper Chart/Abstracting ; Reviewed Date: 08/09/2013 10:13 WEB PUBLISHER sulfa drugs Estimated Onset Date: Unspecified ; Created By: ALEIDA HEAD LPN; Reaction Status: Active ; Category: Drug ; Substance: sulfa drugs ; Type: Allergy ; Updated By: ALEIDA HEAD LPN; Source: Paper Chart/Abstracting ; Reviewed Date: 08/09/2013 10:13 WEB PUBLISHER Source: [facility] POWERCHART Document Id: [id number] WEB PUBLISHER!36 documented in this encounter Plan of Treatment Not on filedocumented as of this encounter Visit Diagnoses Not on filedocumented in this encounter
--- OUTSIDE RECORDS SUMMARY | 2022-05-28 06:58 | XMS_ITS | Encounter Summary ---
:1945 Author Organization [facility] Address [address] [place] [address] Care Team Providers Name Role Phone Unavailable Primary Care Provider Unavailable Encounter Details Date Type Department Care Team Description 02/09/2015 Hospital Encounter HX [facility] FAMILY[facility] Piero Moya i, M.D. [address] [place] [address] (Wo rk) Social History Tobacco [...] do you attend christianity or Never 2021 episcopalian services? Do you [...] Rojas M.D. - 02/09/2015 9:55 AM CDT [id number] CHIEF COMPLAINT/ REASON FOR VISIT Skin lesion [...] solution. Once adequate anesthesia was obtained, a [place] blade was used to shave the entire [...] by Maria Luisa Alonso, a trained medical secretary teacher. The creation of this record is basedon the scribe's personal observations and the provider's statements to them. This document has been c hecked and approved by the attending provider. Piero Hinton M.D./cam Electronically Signed By: PIERO ROJAS MD On: 05/22/2015 06:34 PM Source: [facility] MHSDOLBEYNONRADSYS Document Id: [id number] documented in this encounter Miscellaneous Notes Miscellaneous - Piero Rojas M.D. - 02/15/2015 5:46 PM CDT Addendum by BO CALDWELL on 16 Feb 2015 09:01:52 CDT Patient notified. From: PIERO ROJAS MD To: LAWSON Roy Nurse; Sent: 02/15/2015 17:46:53 CDT Please inform Mr. Duran that the skin lesion was benign. Source: [facility] [employer] Document Id: [id number] Electronically signed by Karen [facility] Wood Heel Fitter Machine [id number] at 02/23/2017 7:47 PM CDT Miscellaneous - Piero Rojas M.D. - 02/09/2015 4:54 PM CDT Ambulatory Patient Summary [address] [id number] Visit Information Name: BETH DURAN [facility] Number: [id number] Current Date: 02/09/2015 16:54:29 Physicians [...] nasal (fluticasone 50 mcg/inh nasal spray) 2 [place](s), Nostrils(Both), once a day gemfibrozil (gemfibrozil 600 [...] appointment detail needed. Your Goals/Additional instructions: Source: [facility] POWERCHART Document Id: [id number] Miscellaneous - Piero Rojas M.D. - 02/09/2015 4:54 PM CDT Ambulatory Discharge Medication List [address] [id number] Visit Information Name: BETH DURAN [facility] Number: [id number] Visit Date: 02/09/2015 16:54:27 Attending [...] nasal (fluticasone 50 mcg/inh nasal spray) 2 [place](s), Nostrils(Both), once a day gemfibrozil (gemfibrozil 600 [...] MD Signed On:09-FEB-2015 16:52:46 Additional Information: Source: [facility] POWERCHART Document Id: [id number] Miscellaneous - Kitty Sexton, LMauroPMauroN. - 02/09/2015 10:12 AM CDT Adult Registered Diet Technician Intake/History Adult Registered Diet Technician Intake/History Entered On: 02/09/2015 10:17 CDT Performed [...] Information Given By : Patient Languages : Salvadorean Is Patient Female and 13-50 no hysterectomy [...] No KITTY SEXTON 02/09/2015 10:12 CDT [facility] Document Id: [id number] CDT!35 Miscellaneous - Piero Rojas M.D. - [...] the cholesterol panel in 8 weeks. [facility] Document Id: [id number] documented in this encounter Plan of Treatment [...] LCM LAB - 02/13/2015 9:58 AM CDT [facility] in [address] [place] [id number] Patient Name: BETH DURAN Patient ID #: [id number] Collected: 02/09/2015 Address: City/State/Zip: [address] [place] [address] ??[phone] Received: Reported: 02/10/2015 02/13/2015 Soc. Sec. #: ?/Age/Sex 1945 (Age: 69) ??M Physician(s): IRENA HINTON MD Copy To: ? 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 [facility]/02/13/2015 JOSE KHAN M.D. Report electronically released. Interpretation by JOSE KHAN M.D. SPECIMEN(S) RECEIVED: LEFT FOREARM LESION GROSS DESCRIPTION: Consists of a 3 mm skin fragment. Carlos OLMSTEAD, one cassette. ([id number]) DDG/FELICITY/02/10/2015 MICROSCOPIC DESCRIPTION: Reviewed by Jose Khan M.D.; Path ologist [facility]/02/13/2015 Piero Alejandro M.D. LAB SURG PATH ORDERABL ES Performing Organization Address City/State/ZIP Code Phon e Number LCM LAB documented in this encounter Visit Diagnoses Not on filedocumented in this encounter Additional Health Concerns Assessment Noted Time PHQ-9 Depression Total Score: 6 01/31/2015 12:28 PM CD T documented as of this encounter
--- OUTSIDE RECORDS SUMMARY | 2022-05-28 06:58 | XMS_ITS | Encounter Summary ---
:1945 Author Organization [facility] Address [address] [place] [address] Care Team Providers Name Role Phone Unavailable Primary Care Provider Unavailable Encounter Details Date Type Department Care Team Description 01/31/2015 Hospital Encounter HX [facility] FB LAB Ewa Grier M.D. [address] [place], [place] [phone] (Wo rk) Social History [...] POWERCHART MMOLL HXeGFR (MDRD) >60 >=60 POWERCHART [id number] eGFR >60 >=60 POWERCHART Black/ [id number] Belgian Specimen (Source) Anatomical Collection Method Collection Time [...]
--- OUTSIDE RECORDS SUMMARY | 2022-05-28 06:58 | XMS_ITS | Encounter Summary ---
:1945 Author Organization [facility] Address [address] [place] [address] Care Team Providers Name Role Phone Unavailable Primary Care Provider Unavailable Encounter Details Date Type Department Care Team Description 04/06/2015 Hospital Encounter HX [facility] FB LAB Piero Grier M.D. [address] [place], [place] [phone] (Wo rk) Social History [...] do you attend judaism or Never 2021 catholic services? Do you [...] fasting labs again in 6 weeks. Source: [facility] [employer] Document Id: [id number] documented in this encounter Plan of Treatment [...] for FH and FDB is available throu [facility]: FH/ADH Genetic Reflex Saleh [...] at or the on-line test catalog at [facility] for information about how to order these [...] AST (Aspartate Aminotransferase) (04/06/2015 8:19 AM CDT) [facility] Billboard Jungle Method Time Signature Aspartate 20 8 - 48 POWERCHART Aminotransferase UNITL (AST), S Specimen (Source) Anatomical Collection Method Collection Time Re ceived Time Location / / Volume Laterality Blood 04/06/2015 8:19 AM CDT Piero Alejandro M.D. LAB BLOOD ADD-ON Performing Organization Address City/State/ZIP Code Phon e Number POWERCHART (ABNORMAL) Lipid Panel (04/06/2015 8:19 AM CDT) [facility] Billboard Jungle Method Time Signature Calculated LDL Test Not [...]
--- OUTSIDE RECORDS SUMMARY | 2022-05-28 06:58 | XMS_ITS | Encounter Summary ---
:1945 Author Organization [facility] Address [address] [place] [address] Care Team Providers Name Role Phone Unavailable Primary Care Provider Unavailable Encounter Details Date Type Department Care Team Description 10/13/2013 Hospital Encounter HX [facility] FBHB LAB Ewa Grier M.D. [address] [place], [place] [phone] (Wo rk) Social History [...] do you attend christianity or Never 2021 mormon services? Do you [...] 10/13/2013 8:04 AM Resu lts for this WEIGHT AND TEST BAR CLERK procedure are i n the results section. documented in this encounter Results (ABNORMAL) Hemoglobin A1c (10/13/2013 8:04 AM WEIGHT AND TEST BAR CLERK) P athologist Signature Hemoglobin A1c, 7.7 (H) 4.0 - 6.0 POWERCHART B Specimen (Source) Anatomical Collection Method Collection Time Re ceived Time Location / / Volume Laterality Blood 10/13/2013 8:04 AM WEIGHT AND TEST BAR CLERK Ewa Alejandro M.D. LAB BLOOD ADD-ON Performing Organization Address City/State/ZIP Code Phon e Number POWERCHART documented in this encounter Visit Diagnoses Not on filedocumented in this encounter
--- OUTSIDE RECORDS SUMMARY | 2022-05-28 06:58 | XMS_ITS | Encounter Summary ---
:1945 Author Organization [facility] Address [address] [place] [address] Care Team Providers Name Role Phone Unavailable Primary Care Provider Unavailable Encounter Details Date Type Department Care Team Description 04/21/2015 Hospital Encounter HX [facility] FAMILY[facility] Piero Moya i, M.D. [address] [place] [phone] (Wo rk) Social History [...] do you attend sikhism or Never 2021 confucianism services? Do you [...] Weiss M.D. - 04/21/2015 9:41 AM CDT [id number] CHIEF COMPLAINT/ REASON FOR VISIT Medication check. [...] their behalf by Lulu Roldan, a trained bio medical technician. The creation of this record is based on the scribe's personal observations and the provider's statements to them. This document has been christie cked and approved by the attending provider. Piero Hinton M.D./livia Electronically Signed By: PIERO WEISS MD On: 06/19/2015 10:56 AM Source: [facility] MHSDOLBEYNONRADSYS Document Id: [id number] documented in this encounter Nursing Notes Natalee Plunkett, L.P.N. - 10/20/2015 4:00 PM CST Panel management call Attempted to contact patient in regards to being due for AIC. According to letter sent on 05/28/15 patient can have repeat lipids in 6 months. Unable to leave message . Mail box is full. Electronically Signed By: NATALEE PLUNKETT LPN On: 10/20/2015 04:02 PM Source: [facility] POWERCHART Document Id: [id number] PHYSICIAN OFFICE documented in this encounter Miscellaneous Notes Miscellaneous - Lucila Blevins - 10/12/2015 1:17 PM CST Quality Measures Quality Measures Entered On: 10/17/2015 13:17 RN PHYSICIAN OFFICE Performed On: 10/12/2015 13:17 RN PHYSICIAN OFFICE by LUCILA BLEVINS LPN Diabetes Date of Last Eye Exam : 10/12/2015 RN PHYSICIAN OFFICE LUCILA BLEVINS LPN - 10/17/2015 13:17 RN PHYSICIAN OFFICE [facility] Document Id: [id number] RN PHYSICIAN OFFICE!3 PHYSICIAN OFFICE Miscellaneous - Ofelia Stafford RJustina - 04/21/2015 9:45 AM CDT Adult Ammonia Still Operator Intake/History Adult Ammonia Still Operator Intake/History Entered On: 04/21/2015 9:47 CDT [...] 04/21/2015 9:45 CDT General Info Languages : Spanish Is Patient Female and 13-50 no hysterectomy [...] 9:45 CDT Source: [facility] POWERCHART Document Id: [id number] CDT!31 documented in this encounter Plan of Treatment Not on filedocumented as of this encounter Visit Diagnoses Not on filedocumented in this encounter Additional Health Concerns Assessment Noted Time PHQ-9 Depression Total Score: 6 01/31/2015 12:28 PM CD T documented as of this encounter
--- OUTSIDE RECORDS SUMMARY | 2022-05-28 06:59 | XMS_ITS | Encounter Summary ---
:1945 Author Organization [facility] Address [address] [place] [address] Care Team Providers Name Role Phone Unavailable [...] do you attend mu-ism or Never 2021 congregation services? Do you [...]
--- OUTSIDE RECORDS SUMMARY | 2022-05-28 06:59 | XMS_ITS | Continuity of Care Document ---
:1945 Author Organization [facility] Care Team Providers Name Role Phone [facility] Unavailable Unavailable Problems Combined list of problems from Department of Defense and Veterans Affairs facilities. It does not include entries that were removed or entered in error. Problem Status Onset Problem Type Date of Comments Source Date Resolution Anemia Active Condition [place] [facility] Asthma (SNOMED [place] [id number][place] [facility] Carcinoma of bladder Active Condition [facility] Congestive heart Active Condition [place] failure [facility] CVA - Active Condition Dec 31, [place] Cerebrovascular 2021 Entered V A [facility] accident By: CED EPSTEIN Comment: 11/2020, outside hospital. Depression ([place]CT Active Condition Sep 01, [place] [id number]) 2017 Entered [facility] By: REJI KNAPP Comment: prescribed by [facility] for depression Diabetic retinopathy Active Condition [place] (SNOMED CT 3358325) [facility] Hyperlipidemia Active Condition [place] (SNOMED CT 75035383) [facility] Hypertension (SNOMED Active Condition [place] 37446664) [facility] Hypertrophy (Benign) Active Condition [place] Prostate without [facility] Urinary obstruction (ICD-9-CM 600.00) Obesity * (ICD-9-CM Active Condition Sep 09 [place] 278.00) 2012 Entered [facility] By: SAMYM ALEGRIA Comment: 10 TOPIC GRAD 07-09-2012* 244.0 --> 09-17-12* 243.2 lbs Obstructive sleep Active Condition [place] apnea (SNOMED CT [facility] 96119286) Rosacea Active Condition [place] [facility] Tinnitus * (ICD-9-CM Active Condition [place] 388.30) [facility] Type 2 diabetes Active Condition [place] mellitus (SNOMED CT [facility] 76027460) Umbilical hernia Active Condition [place] (SNOMED CT [facility] 473646063) Diagnosis: ICD-10-CM active Diagnosis [place] Z71.89 Other [facility] specified counselingwith Provider Comments: Other specified Counseling Diagnosis: ICD-10-CM active Diagnosis [place] R53.1 Weaknesswith V A H[facility] Provider Comments: Weakness Diagnosis: ICD-10-CM active Diagnosis [place] Z95.818 Presence of [facility] other cardiac implants and graftswith Provider Comments: Presence of other cardiac implants and grafts Diagnosis: ICD-10-CM active Diagnosis [place] I63.9 Cerebral [facility] infarction, unspecifiedwith Provider Comments: Cerebral infarction Diagnosis: ICD-10-CM active Diagnosis [place] M62.81 Muscle [facility] weakness (generalized)with Provider Comments: Muscle Weakness (Generalized) Diagnosis: ICD-10-CM active Diagnosis [place] I63.9 Cerebral [facility] infarction, unspecifiedwith Provider Comments: CVA - Cerebrovascular accident ([facility] [id number]) Diagnosis: ICD-10-CM active Diagnosis [place] R13.10 Dysphagia, [facility] unspecifiedwith Provider Comments: Dysphagia, unspecified Diagnosis: ICD-10-CM active Diagnosis [place] E11.8 Type 2 [facility] diabetes mellitus with unspecified complicationswith Provider Comments: Type 2 diabetes mellitus ([facility] [id number]) Diagnosis: ICD-10-CM active Diagnosis [place] K08.531 Fractured [facility] dental restorative material with loss of materialwith Provider Comments: Fractured dental restorative material with loss of material Diagnosis: ICD-10-CM active Diagnosis [place] K02.52 Dental caries [facility] on pit and fissure surfc penetrat into dentinwith Provider Comments: Dental caries on pit and fissure surface penetrating into dentin Diagnosis: ICD-10-CM active Diagnosis [place] E11.65 Type 2 [facility] diabetes mellitus with hyperglycemiawith Provider Comments: Type 2 Diabetes Mellitus with Hyperglycemia Diagnosis: ICD-10-CM active Diagnosis [place] Z71.3 Dietary [facility] counseling and surveillancewith Provider Comments: Dietary counseling and surveillance Diagnosis: ICD-10-CM active Diagnosis [place] Z23 Encounter for [facility] immunizationwith Provider Comments: Encounter for Immunization (ICD-10-CM Z23.) Diagnosis: ICD-10-CM active Diagnosis [place] 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 Provider Comments: Type 2 Diabetes Mellitus with Diabetic Nephropathy Diagnosis: ICD-10-CM active Diagnosis [place] H90.3 Sensorineural [facility] hearing loss, bilateralwith Provider Comments: Sensorineural hearing loss, bilateral Diagnosis: ICD-10-CM active Diagnosis [place] E11.8 Type 2 [facility] diabetes mellitus with unspecified complicationswith Provider Comments: Type 2 diabetes mellitus with unspecified complications (ICD-10-CM E11.8) Diagnosis: ICD-10-CM active Diagnosis [place] I50.9 Heart failure, [facility] unspecifiedwith Provider Comments: Congestive heart failure (SNOMED CT 31762985) Medications Combined list of outpatient medications from Department of Defense and Veterans Affairs facilities. Medications provided include 1) outpatient medications from the last 15 months, and 2) patient-reported medications. Medication Details Route Status Patient Prescription Prescription Last Ordering Order Source Instructions Expires Number Dispense Provider Date Date ATORVASTATI TAKE ONE ORALLY DISCONT 06/15/2022 [id number] STOCK,TYS 06/14/ [place] 80MG TABLET INUED 2 ON 2020 [facility] TAB BY [facility]TH [facility] AT BEDTIME FOR CHOLESTE ROL ATORVASTATI TAKE ONE ORALLY 05/11/2021 [id number] SONG 05/10/ [place] 80MG TABLET 1 ,2019 [facility] TAB [facility] AT BEDTIME FOR CHOLESTE ROL BUDESONIDE INHALE 2 INHALA 2021 [id number] [facility] 07/06/ [place] 160MCG/FORM PUFFS BY TION 1 ,2019 [facility] OTEROL FUM INHALATI HCS 4.5MCG/SPRA ON TWICE Y A DAY INHL,ORAL,1 FOR 0.2GM ASTHMA, TO PREVENT TROUBLE BREATHIN G -RINSE MOUTH AFTER USING CLOPIDOGREL TAKE ONE ORALLY DISCONT 09/01/2022 [id number] STOCK,TYS 08/31/ [place] BISULFATE TABLET INUED 2 ON 2020 [place] 75MG TAB BY MOUTH HCS EVERY DAY INDEFINI TELY TO PREVENT BLOOD CLOTS and STROKE CLOPIDOGREL TAKE ONE ORALLY 08/03/2021 [id number] [place] 08/04/ [place] BISULFATE TABLET 1 ,2019 [facility] 75MG TAB BY MOUTH HCS EVERY DAY INDEFINI TELY TO PREVENT BLOOD CLOTS and STROKE EMPAGLIFLOZ TAKE ONE ORALLY DISCONT 07/18/2022 [id number] STOCK,TYS 07/19/ [place] IN 25MG TAB TABLET INUED 2 ON 2020 [facility] BY MOUTH [facility] EVERY DAY EMPAGLIFLOZ TAKE ORALLY DISCONT 05/16/2022 [id number] ANKIR ABRAN 05/16/ [place] IN 25MG TAB ONE-HALF INUED 1 PALLI,ANV 2020 [facility] TABLET (EDIT) ITHA R HCS BY MOUTH EVERY DAY ESCITALOPRA TAKE ONE ORALLY DISCONT 06/15/2022 [id number] STOCK,TYS 06/14/ [place] OXALATE TABLET INUED 1 ON 2020 [place] [facility] 10MG TAB BY MOUTH HCS EVERY DAY FOR MOOD ESCITALOPRA TAKE ONE ORALLY DISCONT 06/27/2021 [id number] SONG 06/27/ [place] M OXALATE TABLET INUE 1 ,[place] 2019 [facility] 10MG TAB BY MOUTH HCS EVERY DAY FOR MOOD GLUCOSE 4GM CHEW ORALLY DISCONT 07/10/2022 [id number] STOCK ,TYS 07/11/ [place] TAB,CHEW FOUR INUED 1 ON 2020 [facility] TABLETS HCS BY MOUTH NEEDED FOR LOW BLOOD SUGAR INDOMETHACI TAKE ONE ORALLY DISCONT 09/01/2022 [id number] STOCK,TYS 09/04/ [place] 25MG CAP TO TWO INUED 1 ON 2020 [facility] CAPSULES [facility] BY MOUTH THREE TIMES A DAY NEEDED GOUT EXACERBA TION INSULIN,ASP INJECT SUBCUT DISCONT 05/19/2022 [id number] AN KIREDDY 06/23/ [place] ART,HUMAN 10 UNITS [...] FOR DIABETES INSULIN,ASP INJECT SUBCUT DISCONT 11/17/2021 [id number] S TOCK,TYS 01/16/ [place] ART,HUMAN 10 UNITS ANEOUS INUE 1 ON W 2020 [facility] A 100U/ML,NOV UNDER HCS OLOG,FLEXPE THE SKIN N,3ML BEFORE MEALS WITH SNACKS *TAKE ONLY WITH FOOD INTAKE* INSULIN,GLA INJECT SUBCUT DISCONT 11/23/2022 [id number] S TOCK,TYS 11/23/ [place] RGINE,HUMAN 28 UNITS ANEOUS INUED 2 ON 2021 [facility] 100 UNIT/ML UNDER HCS INJ,SOLOSTA THE SKIN R,3ML AT BEDTIME *DO NOT MIX WITH OTHER INSULINS INSULIN,GLA INJECT SUBCUT DISCONT 11/17/[id number] OCK,TYS 11/17/ [place] RGINE,HUMAN 28 UNITS ANEOUS INUE 1 ON W 2020 [facility] 100 UNIT/ML UNDER HCS INJ,SOLOSTA THE SKIN R,3ML AT BEDTIME *DO NOT MIX WITH OTHER INSULINS ISOSORBIDE TAKE ONE ORALLY DISCONT 05/11/2021 [id number] S [place] 05/10/ [place] MONONITRATE TABLET INUED 1 ,[place] 2019 [facility] 60MG TAB,SA BY MOUTH HCS EVERY MORNING LEVOTHYROXI TAKE ONE ORALLY DISCONT 03/22/2022 [id number] STOCK,TYS 03/22/ [place] NA TABLET INUED 2 ON 2020 [facility] 100MCG TAB BY MOUTH HCS (SYNTHROID) EVERY DAY FOR THYROID LOSARTAN TAKE ONE ORALLY DISCONT 11/13/2022 [id number] STO CK,TYS 11/13/ [place] 50MG TAB TABLET INUED 2 ON 2021 [facility] BY MOUTH [facility]CS EVERY DAY LOSARTAN TAKE ORALLY DISCONT 03/22/2022 [id number] STOCK,TY S 03/22/ [place] 50MG TAB ONE-HALF INUED 2 ON 2020 [place] TABLET (EDIT) HCS BY MOUTH EVERY DAY METFORMIN TAKE TWO ORALLY DISCONT 04/04/2022 [id number] FE RNANDES 04/04/ [place] HCL 500MG TABLETS INUED 1 -EDITA,AN 2020 [place] [facility] 24HR TAB,SA BY MOUTH DYROSE HCS EVERY MORNING FOR DIABETES METFORMIN TAKE ONE ORALLY DISCONT 03/01/2022 [id number] FE RNANDES 02/28/ [place] HCL 500MG TABLET INUED 1 -EDITA,AN 2020 [place] [facility] 24HR TAB,SA BY MOUTH DYROSE HCS EVERY DAY FOR 7 DAYS, THEN TAKE TWO TABLETS EVERY DAY FOR DIABETES METOPROLOL TAKE ORALLY DISCONT 03/01/2022 [id number] STOCK, TYS 02/28/ [place] SUCCINATE ONE-HALF INUED 2 ON W 2020 [place] [facility] 50MG TAB,SA TABLET HCS BY MOUTH EVERY DAY FOR HEART FAILURE AND BLOOD PRESSURE SEMAGLUTIDE INJECT SUBCUT DISCONT 11/21/2022 [id number] SI BLEY,SH 11/22/ [place] 0.5MG/0.375 0.25MG ANEOUS INUED 2 ALAMAR D 2021 [facility] ML UNDER HCS INJ,SOLN,PE THE SKIN N,1.5ML EVERY WEEK FOR 4 WEEKS, THEN INJECT 0.5MG EVERY WEEK FOR WEIGHT AND TYPE 2 DIABETES TORSEMIDE TAKE ONE ORALLY DISCONT 11/13/[id number] OCK,TYS 11/14/ [place] 20MG TAB TABLET INUED 2 ON 2021 [place] [facility] BY MOUTH [facility] EVERY MORNING FOR SWELLING TORSEMIDE TAKE TWO ORALLY DISCONT 03/22/[id number] OCK,TYS 03/22/ [place] 20MG TAB TABLETS INUED 2 ON 2020 [place] [facility] BY MOUTH (EDIT) HCS TWICE A DAY FOR SWELLING *TAKE IN MORNING AND AT NOON* TORSEMIDE TAKE TWO ORALLY DISCONT 06/14/[id number] [place] 06/14/ [place] 20MG TAB TABLETS INUED 1 ,[place] 2019 [place] [facility] BY MOUTH (EDIT) HCS EVERY MORNING FOR EDEMA/SW ELLING TRAZODONE TAKE ONE ORALLY DISCONT 06/14/[id number] [place] 06/14/ [place] HCL 100MG TABLET INUED 1 ,[place] 2019 [facility] TAB BY MOUTH [facility] EVERY EVENING NEEDED FOR SLEEP TRAZODONE TAKE ONE ORALLY DISCONT 09/01/[id number] OCK,TYS 08/31/ [place] HCL 50MG TABLET INUED 1 ON W 2020 [place] [facility] TAB BY MOUTH HCS AT BEDTIME NEEDED FOR SLEEP TRAZODONE TAKE ONE ORALLY DISCONT 07/18/[id number] OCK,TYS 07/18/ [place] HCL 50MG TABLET [...] atus Comments Source Given By Number Code Product Sales Representative INFLUENZA, complet [place] INJECTABLE, 2020 ed [facility] QUADRIVALENT, HCS PRESERVATIVE FREE COVID-19 2 complet [place] (MODERNA), 2020 ed [facility] MRNA, LNP-S, H CS PF, 100 MCG/0.5 ML DOSE COVID-19 1 complet [place] (MODERNA), 2020 ed [facility] [...] Wyet h [place] CONJUGATE PCV 2014 ed [id number] [facility] [facility] 13 exp12/13 HCS INFLUENZA, complet [...] and [place] 2011 ed co. [facility] [id number] HCS 09/17/13 INFLUENZA, complet [place] UNSPECIFIED 2011 ed [facility] FORMULATION [facility] S INFLUENZA, complet [place] UNSPECIFIED 2010 ed [facility] FOR[facility] INFLUENZA, complet [place] UNSPECIFIED 2009 ed [facility] FORMULATION [facility] S NOVEL complet [employer] [place] INFLUENZA-H1N 2009 ed [facility] [facility] 10-07, [...] M [place] (HISTORICAL) [address] HCS Results Combined list of recent chemistry, [...] 09:05 AM PANEL(CE [PRESENCE] Reporting L ab: [facility] PHEID) IN [address] [facility] [address] RESPIRATOR Performing L ab: [facility] Y SPECIMEN [facility] [address] BY JAYLAN WITH PROBE DETECTION COVID-19 INFLUENZA Not 11/30 Specimen Type : NASOPHARYNGEAL [place] VIRUS A Detected /2021 Comment: Cephe id GeneXpert (618) IS [facility] FLU/RSV RNA Ordering Provid er: SAHARA CEVALLOS [PRESENCE] Report Relea sed Date/Time: Nov 28, 2021 09:05 AM PANEL(CE IN UPPER Reporting Lab : [facility] PHEID) RESPIRATOR [facility] [address] Y SPECIMEN Performing L ab: [facility] BY JAYLAN [address] [facility] [address] [facility] [address] WITH PROBE DETECTION COVID-19 INFLUENZA Not 11/30 Specimen Type : NASOPHARYNGEAL [place] VIRUS B Detected /2021 Comment: [place]ep[place] id GeneXpert (618) IS [facility] FLU/RSV RNA Ordering Provid er: SAHARA CEVALLOS [PRESENCE] Report Relea sed Date/Time: Nov 28, 2021 09:05 AM PANEL(CE IN UPPER Reporting Lab : [facility] PHEID) RESPIRATOR [facility] [address] Y SPECIMEN Performing L ab: [facility] BY JAYLAN ONE [facility] [address] [facility] [address] WITH PROBE DETECTION COVID-19 RESPIRATOR Not 03/04 Specimen Typ e: NASOPHARYNGEAL [place] AND Y Detected /2021 Comment: [place]ep[place] GeneXpert (618) IS [facility] FLU/RSV SYNCYTIAL Ordering Prov ider: SAHARA CEVALLOS VIRUS RNA Report Releas ed Date/Time: Nov 28, 2021 09:05 AM PANEL(CE [PRESENCE] Reporting L ab: [facility] PHEID) IN UPPER [address] [facility] [address] RESPIRATOR Performing L ab: [facility] Y SPECIMEN [address] [facility] [address] BY JAYLAN WITH PROBE DETECTION HEMOGLOB HEMOGLOBIN 10.2 4.0 - 6.0 10/11 H Specimen T ype: BLOOD [place] IN A1C A1C/HEMOGL /2021 No comment en tered. IS [facility] OBIN.TOTAL Ordering Pro vider: LONA PALACIO IN BLOOD Report Release d Date/Time: Jun 14, 2021 10:16 AM Reporting Lab: [facility] [address] [facility] [address] Performing Lab: [facility] [address] [facility] [address] MICROALB CREATININE 19.5 58.0 - 06/14 L Specimen Typ e: URINE [place] UMIN/CRE [MASS/VOLU 161.0 No comment e ntered. IS [facility] ATININE ME] IN Ordering Provid er: LONA PALACIO URINE Report Released Date/Time: Jun 14, 2021 10:15 AM URINE Reporting Lab: [facility] [address] [facility] [address] Performing Lab: [facility] [address] [facility] [address] MICROALB MICROALBUM 324.6 <29.9 - 06/14 H Specimen Typ e: URINE [place] UMIN/CRE IN/CREATIN 29.9 No comment e ntered. IS [facility] ATININE INE [MASS Ordering Prov ider: LONA PALACIO RATIO RATIO] IN Report Releas ed Date/Time: Jun 14, 2021 10:15 AM URINE URINE Reporting Lab: [facility] [address] [facility] [address] Performing Lab: [facility] [address] [facility] [address] MICROALB MICROALBUM 63.3 <29.9 - 06/14 H Specimen Typ e: URINE [place] UMIN/CRE IN . No comment ente red. IS [facility] ATININE [MASS/VOLU Ordering Pro vider: LONA PALACIO RATIO ME] IN Report Released Date/Time: Jun 14, 2021 10:15 AM URINE URINE Reporting Lab: [facility] [place] [address] Performing Lab: [facility] [address] [facility] [address] C-PEPTID C PEPTIDE 2.40 0.80 - 06/14 Specimen Type : SERUM [place] E [MASS/VOLU 3.85 /2020 Comment: Alba t Performed by [facility], [address] [place] [address] Jf Crum M.D., Ph.D., Director of Laboratories , [facility] [id number] IS [facility] ME] IN Ordering Provid er: LONA PALACIO SERUM OR Report Release d Date/Time: Jun 14, 2021 10:15 AM PLASMA Reporting Lab: [facility] [address] [facility] [address] Performing Lab: [address] HEMOGLOB HEMOGLOBIN 10.2 4.0 - 6.0 06/14 H Specimen T ype: BLOOD [place] IN A1C A1C/HEMOGL No comment en tered. IS [facility] OBIN.TOTAL Ordering Pro vider: LONA PALACIO IN BLOOD Report Release d Date/Time: Jun 14, 2021 10:15 AM Reporting Lab: [facility] [place] [address] Performing Lab: [facility] [place] [address] LIPID CHOLESTERO 127 <199 - 199 06/14 Specimen T ype: PLASMA [place] PANEL,NO L /2020 No comment ente red. IS [facility] N-FASTIN [MASS/VOLU Ordering Pr ovider: LONA PALACIO G ME] IN Report Released Date/Time: Jun 14, 2021 10:15 AM SERUM OR Reporting Lab: [place] [facility] PLASMA [place] [address] Performing Lab: [facility] [address] [facility] [address] LIPID CHOLESTERO 28 40 06/14 L Specimen Type : PLASMA [place] PANEL,NO L IN HDL /2020 No comment ent ered. IS [facility] N-FASTIN [MASS/VOLU Ordering Pr ovider: LONA PALACIO] IN Report Released Date/Time: Jun 14, 2021 10:15 AM SERUM OR Reporting Lab: [facility] PLASMA [address] [facility] [address] Performing Lab: [facility] [address] [facility] [address] LIPID CHOLESTERO 65 <99 - 99 06/14 Specimen Typ e: PLASMA [place] PANEL,NO L IN LDL /2020 No comment ent ered. IS [facility] N-FASTIN [MASS/VOLU Ordering Pr ovider: LONA PALACIO] IN Report Released Date/Time: Jun 14, 2021 10:15 AM SERUM OR Reporting Lab: [facility] PLASMA BY [address] [facility] [address] CALCULATIO Performing L ab: [facility] N [address] [facility] [address] LIPID CHOLESTERO 34 <29 - 29 06/14 H Specimen Typ e: PLASMA [place] PANEL,NO L IN VLDL /2020 No comment en tered. IS [facility] N-FASTIN [MASS/VOLU Ordering Pr ovider: LONA PALACIO] IN Report Released Date/Time: Jun 14, 2021 10:15 AM SERUM OR Reporting Lab: [facility] PLASMA BY [address] [facility] [address] CALCULATIO Performing L ab: [facility] N [address] [facility] [address] LIPID CHOLESTERO 99 <129 - 129 06/14 Specimen T ype: PLASMA [place] PANEL,NO L NON HDL /2020 No comment en tered. IS [facility] N-FASTIN [MASS/VOLU Ordering Pr ovider: LONA PALACIO] IN Report Released Date/Time: Jun 14, 2021 10:15 AM SERUM OR Reporting Lab: [facility] PLASMA [address] [facility] [address] Performing Lab: [facility] [place] [address] LIPID TRIGLYCERI 172 <149 - 149 06/14 H Specimen T ype: PLASMA [place] PANEL,NO DE /2020 No comment ente red. IS [facility] N-FASTIN [MASS/VOLU Ordering Pr ovider: LONA PALACIO G ME] IN Report Released Date/Time: Jun 14, 2021 10:15 AM SERUM OR Reporting Lab: [facility] PLASMA [place] [address] Performing Lab: [facility] [address] [facility] [address] TSH THYROTROPI 3.83 0.35 - 06/14 Specimen Type : PLASMA [place] W/REFLEX N 4.94 /2020 No comment ente red. IS [facility] TO FREE [UNITS/VOL Ordering Pro vider: LONA PALACIO T4 UME] IN Report Released Date/Time: Jun 14, 2021 10:15 AM SERUM OR Reporting Lab: [facility] PLASMA [address] [facility] [address] Performing Lab: [facility] [address] [facility] [address] GLUCOSE GLUCOSE 292 74 - 100 06/14 H Specimen Type: PLASMA [place] [MASS/VOLU /2020 No comment en tered. IS [facility] ME] IN Ordering Provid er: LONA PALACIO SERUM OR Report Release d Date/Time: Jun 14, 2021 04:36 PM PLASMA Reporting Lab: [facility] [address] [facility] [address] Performing Lab: [facility] [place] [address] CREATINI CREATININE 1.6 0.7 - 1.2 01/16 H Specimen T ype: PLASMA [place] NE(INCLU [MASS/VOLU /2020 No comment e ntered. IS [facility] [place] ME] IN Ordering Provid er: MITCHELL-EDITAANDXIOMY EGFR) SERUM OR Report Release d Date/Time: Jan 16, 2021 10:53 AM PLASMA Reporting Lab: [facility] [address] [facility] [address] Performing Lab: [facility] [address] [facility] [address] CREATINI GLOMERULA 42 60 04/20 L Specimen Typ e: PLASMA [place] NE(INCLU R /2020 No comment ente red. IS [facility] [place] FILTRATION Ordering Pro vider: VICKI KILLIAN EGFR) RATE/1.73 Report Releas ed Date/Time: Jan 16, 2021 10:53 AM SQ Reporting Lab: [facility] [place] [address] [facility] [address] D [VOLUME Performing La b: [facility] RATE/AREA] [address] [facility] [address] IN SERUM, PLASMA OR BLOOD BY CREATININE -BASED FORMULA (CKD-EPI) HEMOGLOB HEMOGLOBIN 8.3 4.0 - 6.0 01/16 H Specimen T ype: BLOOD [place] IN A1C A1C/HEM /2020 No comment en tered. IS [facility] OBIN.TOTAL Ordering Pro vider: VICKI KILLIAN IN BLOOD Report Release d Date/Time: Jan 16, 2021 10:53 AM Reporting Lab: [facility] [address] [facility] [address] Performing Lab: [facility] [address] [facility] [address] Vital Signs Combined list of inpatient and outpatient Vital Signs from Department of Defense and Veterans Affairs, ranging from 12 months to all on record, depending upon the facility. Vital Sign Value Date Comments Source SYSTOLIC BLOOD PRESSURE 142 12/21/2021 10:36:23 [facility] DIASTOLIC BLOOD PRESSURE 69 12/21/2021 10:36:23 [facility] TEMPERATURE 97.7 12/21/2021 10:36:23 [facility] PULSE 52 12/21/2021 10:36:23 [place] [facility] SYSTOLIC BLOOD PRESSURE 137 10/11/2021 09:26:36 [facility] DIASTOLIC BLOOD PRESSURE 71 10/11/2021 09:26:36 [facility] PULSE OXIMETRY 97% 10/11/2021 09:26:36 [place] [facility] WEIGHT 214 10/11/2021 09:26:36 [place] [facility] BMI 27kg/m2 10/11/2021 09:26:36 [place] [facility] [facility] PAIN 0 10/11/2021 09:26:36 [place] [facility] TEMPERATURE 98.8 10/11/2021 09:26:36 [place] [facility] PULSE 55 10/11/2021 09:26:36 [place] [facility] RESPIRATION 16 10/11/2021 09:26:36 [place] [facility] WEIGHT 222.2 07/03/2021 11:00:00 [place] [facility] BMI 28kg/m2 07/03/2021 11:00:00 [place] [facility] SYSTOLIC BLOOD PRESSURE 130 06/14/2021 09:37:22 [place] [facility] DIASTOLIC BLOOD PRESSURE 69 06/14/2021 09:37:22 [facility] PULSE OXIMETRY 95% 06/14/2021 09:37:22 [place] [facility] [...] For Provider Date Date Visit HC PRO [id number] Diagnos STEPHEN- 11/22 M [place] PHONE CALL [phone] is: JAJA KOHLER [facility] 21-30 MIN ICD-10- [facility] CM E11.8 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< br/>wit h Provide r Comment s: Type 2 diabete s mellitu s (SCT [id number]) Outpatient [id number] 11/27 [place] [facility] Encounter [id number] [facility] [facility] 23402-6.61 LUCIANTYCHANTALE 11/28 [place] Encounter [id number] N [facility] HC PRO 86582-4.61 Diagnos MITCHELL- 11/30 [place] PHONE CALL [phone] is: EDITA, [facility] 21-30 MIN ICD-10- [facility] HCS CM E11.8 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< br/>wit h Provide r Comment s: Type 2 diabete s mellitu s (SCT [id number] 6) Outpatient 38697-6.61 03/11 [place] Encounter [id number] /2020 [facility] Outpatient 40453-4.61 03/16 [place] Encounter [id number] /2020 [facility] HC PRO 38986-1.61 Diagnos MITCHELL- 12/15 [place] PHONE CALL [id number] is: EDITA, [facility] 21-30 MIN ICD-10- [facility] HCS CM E11.8 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< br/>wit h Provide r Comment s: Type 2 diabete s mellitu s (SCT [id number] 6) Outpatient 62013-0.61 03/30 [place] Encounter [id number] /2020 [facility] Outpatient 40587-4.61 03/31 [place] Encounter [id number] /2020 [place] [address]-2.61 Diagnos Fidencio ARANDA 12/28 [place] PHARM ADDL [id number] is: HALEY D [facility] 15 MIN ICD-10- HCS CM E11.8 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< br/>wit h Provide r Comment s: Type 2 diabete s mellitu s (SCT [id number] 6) CONT GLUC 38826-7.61 Diagnos MITCHELL- 01/16 [place] MNTR [id number] is: [facility]A, [facility] PHYS/QHP ICD-10- [facility] EQP CM E11.8 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< br/>wit h Provide r Comment s: Type 2 diabete s mellitu s (SCT [id number] 6) HEARING 97256-2.61 Diagnos Juana LYNNE 01/29 [place] AID EXAM [id number] is: JANINA LANG [facility] BOTH EARS ICD-10- HCS CM H90.3 Sensori neural hearing loss, bilater al
with Provide r Comment s: Sensori neural hearing loss, bilater al OFFICE O/P 99034-3.61 Diagnos JOSE D DAVILA 02/01 [place] EST HI [id number] is: SEY R /2020 [facility] 40-54 MIN ICD-10- HCS CM E11.8 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< br/>wit h Provide r Comment s: Type 2 diabete s mellitu s (SCT [id number] 6) Outpatient 06843-3 05/ [place] Encounter [id number] /2021 [facility] HC PRO 43103-5 Diagnos MITCHELL- 02/22 [place] PHONE CALL [id number] is: EDITA,MIKAELA [facility] 21-30 MIN ICD-10- [facility] HCS CM E11.8 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< br/>wit h Provide r Comment s: Type 2 diabete s mellitu s (SCT [id number] 6) Outpatient 88726-3 06/01 [place] Encounter [id number] [facility] OFF[facility] O/P Diagnos JOSE D DAVILA 03/01 [place] EST HI [id number] is: Y R [facility] 40-54 MIN ICD-10- HCS CM E11.8 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< br/>wit h Provide r Comment s: Type 2 diabete s mellitu s (SCT [id number] 6) Outpatient 30123-2.61 06/04 [place] Encounter [id number] /2021 [facility] Out[facility] 28657-9. 06/10 [place] Encounter [id number] /2021 [facility] Outpatient 49908-2.61 06/14 [place] En[place] [id number] [facility] 55036-2.61 06/17 [place] En[place] [id number] [facility] Outpatient 79701-503/19 [place] Encounter [id number] /2020 [facility] OFFICE O/P Diagnos CONOR EPSTEIN 03/21 [place] EST MOD [id number] is: N W [facility] 30-39 MIN ICD-10- HCS CM I50.9 Heart failure , unspeci fied
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< br/>wit h Provide r Comment s: Type 2 diabete s mellitu s (SCT [id number] 6) HC PRO Diagnos MITCHELL- 04/18 [place] PHONE CALL [phone] is: EDITA,MIKAELA [facility] 21-30 MIN ICD-10- [facility] HCS CM E11.8 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 IMMUNIZATI 65353-261 Diagnos DAVID TO 07/03 [place] ON ADMIN [id number] is: RLY K [facility] A ICD-10- HCS CM Z23 Encount er for immuniz ation<b r/>with Provide r Comment s: Encount er for Immuniz ation (ICD-10 -CM Z23.) Outpatient 00594-4.61 10/ [place] Encounter [id number] [facility] 33363-5.61 07/17 [place] Encounter [id number] /2021 [facility] [place] [address]-4.61 Diagnos BALDO, 07/17 [place] DIG [id number] is: LEONOR K /2020 [facility] ASSMT&MGMT ICD-10- HCS 5-10 CM E11.8 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< br/>wit h Provide r Comment s: Type 2 diabete s mellitu s (SCT [id number] 6) Outpatient 62659-1.61 07/19 [place] Encounter [id number] [facility] MED 17403-3.61 Diagnos JIM TOBE 08/14 [place] NUTRITION [id number] is: RLY K /2020 [facility] INDIV ICD-10- HCS SUBSEQ CM 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<b r/>with Provide r Comment s: 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 ORAL 48240-7.61 Diagnos EGGEBRAATE 08/31 [place] HYGIENE [id number] is: NCLAIRE T /[address] INSTRUCTIO ICD-10- [facility] N CM K02.52 Dental caries on pit and fissure surfc penetra t into dentin< br/>wit h Provide r Comment s: Dental caries on pit and fissure surface penetra ting into dentin Outpatient 96338-4.61 09/07 [place] Encounter [id number] [facility] Outpatient 94872-2.61 10/10 [place] Encounter [id number] [facility] OFFICE O/P 77128-0.61 Diagnos LAMAR PALACIO 10/11 [place] EST MOD [id number] is: ILANA D /2021 [facility] 30-39 MIN ICD-10- HCS CM 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< br/>wit h Provide r Comment s: Type 2 Diabete s Mellitu s with Hypergl ycemia Outpatient 06678-9.61 10/19 [place] Encounter [id number] [facility] HC PRO 79579-7.61 Diagnos OMBERG,RUDDY 10/24 [place] PHONE CALL [id number] is: I M /2021 [facility] [facility] 21-30 MIN ICD-10- HCS CM E11.8 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< br/>wit h Provide r Comment s: Type 2 diabete s mellitu s (SCT [id number] 6) Outpatient 17512-6.61 11/09 [place] Encounter [id number] /2021 [facility] Outpatient 58333-8.61 11/12 [place] Encounter [id number] /2021 [facility] HC PRO 39594-4.61 Diagnos [facility]UD[place] 11/21 [place] PHONE CALL [id number] is: I M [facility] 5-10 MIN ICD-10- HCS CM E11.8 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< br/>wit h Provide r Comment s: Type 2 diabete s mellitu s (SCT [id number] 6) Outpatient 48410-1.61 11/26 [place] Encounter [id number] /2021 [facility] ADJUNCTIVE 58935-9.61 Diagnos EGGEBRAATE 11/30 [place] PROCEDURE [id number] is: NCLAIRE T /2021 [place] [facility] ICD-10- HCS CM K02.52 Dental caries on pit and fissure surfc penetra t into dentin< br/>wit h Provide r Comment s: Dental caries on pit and fissure surface penetra ting into dentin Outpatient 78998-9.61 12/04 [place] Encounter [id number] /2021 [facility] HC PRO 07089-8.61 [facility] 12[facility]18 [place] PHONE CALL [id number] is: I M /2021 [facility] 11-20 MIN ICD-10- HCS CM E11.8 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
w ith Provide r Comment s: Fractur ed dental restora tive materia l with loss of materia l Outpatient 40976-4.61 12/27 [place] Encounter [id number] /2021 [facility] Outpatient 95295-5.65 12/28 ST. Encounter [id number] /2021 [facility] Outpatient 09555-0.61 12/31 [place] En[place] [id number] /2021 [facility] Outpatient 65768-6.65 12/31 ST. Encounter [id number] /2021 [facility] Outpatient 81612-4.61 12/31 [place] Encounter [id number] /2021 [facility] Outpatient 52449-1.61 WILDER FLORENCE 12/31 [place] Encounter [id number] THAN C /2021 [facility] Outpatient 27266-0.61 Diagnos Fidencio HENDERSON 12/31 [place] Encounter [id number] is: MAKENNA J /2021 [facility] ICD-10- HCS CM M62.81 Muscle weaknes s (genera lized)< br/>wit h Provide r Comment s: Muscle Weaknes s (Genera lized) Outpatient 92736-1.61 01/01 [place] Encounter [id number] /2021 [facility] Outpatient 21868-6.61 01/02 [place] En[place] [id number] /2021 [facility] Outpatient 57251-8.61 Diagnos Fidencio HENDERSON 01/03 [place] Encounter [id number] is: MAKENNA J /2021 [facility] ICD-10- HCS CM M62.81 Muscle weaknes s (genera lized)< br/>wit h Provide r Comment s: Muscle Weaknes s (Genera lized) CASE 84788-5.61 Diagnos GISELA REBOLLAR 01/04 [place] MANAGEMENT [id number] is: EE J /2021 [facility] [facility] ICD-10- HCS CM E11.8 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
with Provide r Comment s: Dysphag ia, unspeci fied Outpatient 71603-761 Diagnos Fidencio HENDERSON 01/25 [place] Encounter [id number] is: MAKENNA J /2021 [facility] ICD-10- HCS CM M62.81 Muscle weaknes s (genera lized)< br/>wit h Provide r Comment s: Muscle Weaknes s (Genera lized) Outpatient 99535-8.61 01/30 [place] Encounter [id number] [facility] Outpatient 51500-5.61 02/04 [place] Encounter [id number] /2021 [facility] REM 62841-061 Diagnos GERMAN,SA 02/05 [place] INTERROG [id number] is: NDRA L /2021 [facility] DEV EVAL ICD-10- HCS SCRMS CM I63.9 Cerebra l infarct ion, unspeci fied
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 ([facility] [id number] ) Outpatient 50619-4.61 02/06 [place] Encounter [id number] /2021 [facility] Outpatient 26675-6.61 02/07 [place] Encounter [id number] /2021 [facility] Outpatient 08312-2.61 02/12 [place] Encounter [id number] /2021 [facility] Outpatient 19182-0.61 02/18 [place] Encounter [id number] /2021 [facility] Outpatient 99776-6.61 02/19 [place] Encounter [id number] /2021 [facility] Outpatient 91148-8 Diagnos FAPORTER,E 02/19 [place] Encounter [id number] is: MAKENNA J /2021 [facility] ICD-10- HCS CM M62.81 Muscle weaknes s (genera lized)< br/>wit h Provide r Comment s: Muscle Weaknes s (Genera lized) Outpatient 90746-3.61 02/21 [place] Encounter [id number] /2021 [facility] Outpatient 53689-2.61 02/28 [place] Encounter [id number] /2021 [facility] Outpatient 57463-8.61 02/28 [place] Encounter [id number] /2021 [facility] REM 78580-2.61 Diagnos FASHINGBAU 03/01 [place] [id number] is: ANISA HANSON /2021 [facility] DEV EVAL ICD-10- T HCS SCRMS CM I63.9 Cerebra l infarct ion, unspeci fied
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
w ith Provide r Comment s: Weaknes s Outpatient 35685-4.61 06/ [place] Encounter [id number] /2021 [facility] Outpatient 59071-4.61 03/25 [place] Encounter [id number] /2021 [facility] Outpatient 89522-7.61 03/26 [place] Encounter [id number] /2021 [facility] Outpatient 98409-2.61 07 [place] En[place] [id number] /2021 [facility] Outpatient 88584-5.61 04/15 [place] Encounter [id number] /2021 [facility] Outpatient 73114-1.61 Diagnos SANTIAGO,E 04/19 [place] Encounter [id number] is: MAKENNA J /[address] ICD-10- HCS CM M62.81 Muscle weaknes s (genera lized)< br/>wit h Provide r Comment s: Muscle Weaknes s (Genera lized) REM 16634-0.61 Diagnos ZHOU,L 04/23 [place] [id number] is: NAOMI /2021 [facility] DEV EVAL ICD-10- HCS SCRMS CM I63.9 Cerebra l infarct ion, unspeci fied
with Provide r Comment s: Cerebra l infarct ion Outpatient 19185-5.61 04/23 [place] Encounter [id number] /2021 [facility] REM 93737-3.61 Diagnos FASHINGBAU 04/29 [place] [id number] is: YENIFER HANSONARE /2021 [facility] DEV EVAL ICD-10- T HCS SCRIA CM Z95.818 Presenc e of other cardiac implant s and grafts< br/>wit h Provide r Comment s: Presenc e of other cardiac implant s and grafts WHEELCHAIR 34594-7.61 Diagnos SHUN THURSTON 05/06 [place] MNGMENT [id number] is: D R [facility] ICD-10- HCS CM R53.1 Weaknes s
w ith Provide r Comment s: Weaknes s CASE 32867-5.61 Diagnos GISELA REBOLLAR 05/15 [place] [id number] is: EE J [facility] ICD-10- HCS CM Z71.89 Other specifi ed day camp counselor ing<br/ >with Provide r Comment s: Other specifi ed Pediatric Orthodontist ing Social History Combined list of available smoking, tobacco, and other social history from [facility] Defense and[facility] facilities. Social History Type Response Date Comment Source Tobacco smoking status VA-TOBACCO FORMER USER 06/13/2020 [facility] History of tobacco use CT-TOBACCO QUIT 15 YRS 06/13/2020 [facility] OR [facility] History of tobacco use VA-TOBACCO QUIT 15 YRS 05/20/2019 [facility] History of tobacco use VA-TOBACCO FORMER USER 07/30/2018 [facility] History of tobacco use FORMER TOBACCO USER 7Y 08/25/2017 [facility] History of tobacco use FORMER TOBACCO USER 7Y 11/08/2016 [facility] History of tobacco use FORMER TOBACCO USER 7Y 11/29/2015 [facility] History of tobacco use FORMER TOBACCO USER 7Y 02/23/2015 [facility] History of tobacco use FORMER TOBACCO USER 7Y 01/27/2014 [facility] History of tobacco use FORMER TOBACCO USER 7Y 03/17/2007 [facility] Advance Directives List of completed, amended, or rescinded Advance Directives on record at Department of Veterans Affairs facilities. An actual copy of the Directive is not included. Date Advance Directive Provider Source 03/17/2007 ADVANCE DIRECTIVE ALBERTO RODRIGUEZ [facility]
--- OUTSIDE RECORDS SUMMARY | 2022-05-28 06:59 | XMS_ITS | Encounter Summary ---
:1945 Author Organization [facility] Address [address] [place] [address] Care Team Providers Name Role Phone Unavailable Primary Care Provider Unavailable Encounter Details Date Type Department Care Team Description 03/03/2003 Hospital Encounter HX [facility] Oni Felix M.D. [address] [place], [place] [phone] (Wo rk) Social History [...] do you attend congregational or Never 2021 mu-ism services? Do you [...]
--- OUTSIDE RECORDS SUMMARY | 2022-05-28 06:59 | XMS_ITS | Encounter Summary ---
:1945 Author Organization [facility] Address [address] [place] [address] Care Team Providers Name Role Phone Unavailable [...]
--- OUTSIDE RECORDS SUMMARY | 2022-05-28 06:59 | XMS_ITS | Encounter Summary ---
:1945 Author Organization [facility] Address [address] [place] [address] Care Team Providers Name Role Phone Unavailable Primary Care Provider Unavailable Encounter Details Date Type Department Care Team Description 10/16/2009 Hospital Encounter HX NO MAPPING Toño Phillips M.D. [address] [place], [place] [address] (Wo rk) Social History [...] do you attend restorationism or Never 2021 christianity services? Do you [...] lts for this AND LATERAL 2 VIEWS CONCRETE SMOOTHER procedur e are in the results section. documented in this encounter Results DX Chest AP or PA and Lateral 2 Views (10/16/2009 4:40 PM CONCRETE SMOOTHER) Anatomical Region Laterality Modality Chest N/A Radiographic Imaging Specimen (Source) Anatomical Collection Method Collection Time Re ceived Time Location / / Volume Laterality 10/16/2009 4:40 PM CONCRETE SMOOTHER Addenda Addendum by Provider, Pato Chase n 10/16/2009 4:40 PM CONCRETE SMOOTHER RAD^^^OW XR Chest 2 Views 10/16/2009 16:40:00 Addendum by ProviderRena M.D. o n 10/16/2009 4:40 PM CONCRETE SMOOTHER RAD^^^MA XR CHEST 2 VIEWS 10/16/2009 16:40:00 Narrative 10/16/2009 5:09 PM CONCRETE SMOOTHER FINDINGS: The heart is normal in size [...]
--- OUTSIDE RECORDS SUMMARY | 2022-05-28 06:59 | XMS_ITS | Encounter Summary ---
:1945 Author Organization [facility] Address [address] [place] [address] Care Team Providers Name Role Phone Unavailable Primary Care Provider Unavailable Encounter Details Date Type Department Care Team Description 01/31/2009 Hospital Encounter HX NO MAPPING Toño Phillips M.D. [address] [place], [place] [address] (Wo rk) Social History [...] do you attend taoism or Never 2021 quaker services? Do you [...]
--- OUTSIDE RECORDS SUMMARY | 2022-05-28 06:59 | XMS_ITS | Encounter Summary ---
:1945 Author Organization [facility] Address [address] [place] [address] Care Team Providers Name Role Phone Unavailable [...] do you attend voodoo or Never 2021 gnosticist services? Do you [...]
--- OUTSIDE RECORDS SUMMARY | 2022-05-28 06:59 | XMS_ITS | Encounter Summary ---
:1945 Author Organization [facility] Address [address] [place] [address] Care Team Providers Name Role Phone Unavailable Primary Care Provider Unavailable Encounter Details Date Type Department Care Team Description 03/28/2003 Hospital Encounter HX [facility] Cooper Bateman M.D. [facility] [place], [place] [address] (Wo rk) Social History [...] do you attend cheondoism or Never 2021 latter-day services? Do you [...]
--- OUTSIDE RECORDS SUMMARY | 2022-05-28 07:03 | XMS_ITS | Encounter Summary ---
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
--- OUTSIDE RECORDS SUMMARY | 2022-05-28 07:03 | XMS_ITS | Clinical Summary ---
:1945 Author Organization [facility] Address [address] [address] Phone Care Team Providers Name Role Phone [...] Brother Depression Brother Cardiovascular Disease Father of [place] Depression Father Hypertension Mother Asthma Sister Asthma [...] Phone Address Typ e / Group Dates [facility] [id number] 2020-Pre [phone] ATTN Medicar e MEDICARE sent [phone] ??CLAIMS Replacement PLANS [address] [place] [address] [facility] [id number] 2021-Pre [phone] [facility] sent [phone] [facility] [facility] [address] [place] [address] Jonnathan Costa Other Self 1945 [phone] [id number] (Home) [place] [address] Advance Directives For more information, please contact: [phone] Latest Code Status on File Code Status Date Activated Date Inactivated Comments Full Code 12/24/2021 2:27 AM 12/24/2021 10:02 PM Full Code 02/25/2021 7:21 PM 02/26/2021 7:54 PM
--- OUTSIDE RECORDS SUMMARY | 2022-05-28 07:03 | XMS_ITS | Encounter Summary ---
:1945 Author Organization [facility] Address [address] [address] Phone Care Team Providers Name Role Phone [...]
--- OUTSIDE RECORDS SUMMARY | 2022-05-28 07:03 | XMS_ITS | Encounter Summary ---
:1945 Author Organization [employer] [facility] Address [address] [address] Phone Care Team Providers Name Role Phone Unavailable Primary Care Provider Unavailable Reason for Visit Reason Comments Cerebral Vascular Accident Auth/Cert Specialty Diagnoses / Procedures Referred By Contact Refer red To Contact Diagnoses TIA (transient ischemic attack) Elevated troponin Transient ischemic attack [address] Medical [address] [place] [address] [place] [address] Referral ID Status Reason Start Date Expiration Date Visits Requ ested Visits Authorized [id number] 1 1 Encounter Details Date Type Department Care Team Description [facility] [address] [place] [address] [place], [place] [id number] TIA (transient ischemic attack) (Primary Dx); 12/24/2021 [facility] Holly Owen MD [address] [place] [address] [phone] Elevated troponin; [address] [place] [address] Malachi Alves, PARK SUPERINTENDENT, MARKETING DEVELOPER [address] [place] [address] [phone] 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 Recommend level tested at [place] ?? Elevated troponin level -??0.377-->0.362-->0.310-->0.283 no chest [...] a stress test as outpatient with his living supervisor at [facility]. Plan of care reviewed with Dr. aNtasha Lopez. ?? Mr. De Santiago was wanting [...] failure with preserved ejection fraction (HFpEF) ([facility]) no increased dyspnea or edema. Appears to be euvolemic. ??Troponin elevated as above. -??Continue usual medications of ASA, Lipitor, Plavix, losartan, metoprolol and torsemide. ?Type 2 diabetes mellitus with hyperglycemia, with long-term current use of insulin ([facility]) - checks his glucose levels 4-5 times per day and has insulin SS and basal. Recently started Ozempic ( questioning the of thuseis medication with hx of pancreatitis) - and on SGLT2 A1C 9.6% (12/24/2021) Fasting glucose 184 Pre-meal glucose 283 -will continue on PAIN MEDICINE PHYSICIAN medications and follow-up with PCP ?Essential hypertension -??continue losartan and metoprolol. ??No prn medications unless BP >??180/100 for permissive HTN. ?Stage 3b chronic kidney disease (HCC) - creatine on presentation 1.58. appears to be at his baseline. ??Follow with diuretic use. ?? Diagnostic Studies: Labs: See labs in [facility] from 12/23/2021 - 12/24/2021 Microbiology: Covid, negative Imaging/cardiac graphics: Ct head, CT angio head/neck, MRI, ECHO Procedures this admission: none Consult/s: IP CONSULT TO [facility] TELE-STROKE IP CONSULT HF INPATIENT CASE MANAGEMENT BRD IP CONSULT TO [facility] TELE-STROKE IP CONSULT TO LEAF CONDITIONER IP CONSULT TO CARDIOLOGY, see notes for full details of consult Discharge Instructions: Follow up appointment with Primary Care Physician: No primary care provider on file. within 3 work days. Follows with [facility] [place] and has appointment scheduled for December 27. [...] with patient and family. Malachi Alves CNP [facility] Medicine Service Please CC/route this note in EPIC to No primary care provider on file. documented in this encounter Discharge Instructions InstructionsMoMalachi bliss APRN, CNP - 12/24/2021 9:57 AM CDT Neurology is recommending a 30 day Holter monitor that will be mailed to you Follow-up with you primary care provider as scheduled on December [address] [facility] Follow-up with neurology within one month Follow-up with cardiology in one month AttachmentsThe following attachments cannot be sent through Care Everywhere. Stroke, What is Ischemic (Emirati)documented in this encounter Medications at Time of [...] Code Departure Means Destination Home and/or Self Fdc documented in this encounter Progress Notes Yesenia [...] Franco PharmD - 12/24/2021 3:59 PM CDT PAIN MEDICINE PHYSICIAN Medication History obtained by: Estelle Franco PharmD Home medication list updated using: PAIN MEDICINE PHYSICIAN med list, patient, spouse ([facility]- [phone]), Outpatient Pharmacy ([facility]) Faxed Medication List and Care Everywhere (Organization: [facility]) Spoke with the patient? Yes Name [...] Washington MD - 12/24/2021 3:46 PM CDT [facility] TELESTROKE NEUROVASCULAR SUMMARY Beth Duran 1945 Date of service 12/24/2021 The type of service provided: Telehealth visit conducted via interactive videoconference. The time the service began and the time the service ended: [id number]. A description of the provider???s basis for determining that telemedicine is an appropriate and effective means for delivering service to the recipient: Defined by policy and procedure documents. The mode of transmission of the telemedicine service: Interactive videoconference. The location of the originating and the distant sites: Originating Site (Patient Location): [facility] Distant Site (Provider Site): [place], [place]. This is a 76 year old male who was admitted to [facility] for ischemic strokes in multiple vascular [...] on monitor. NEUROLOGICAL: NIHSS 0. Admission modified Greenup Scale: 1 Discharge modified Tracy Scale: 1 [...] with neurology as outpatient. Luiz Washington MD [facility] Telestroke Counseling/Coordination of care 20 minutes / [...] failure with preserved ejection fraction (HFpEF) ([facility]) Procedures/Diagnostics Affecting Therapy: Hx of CHF [...] Function/Coordination: Dominant Hand: Right Bilateral coordination and police dispatcher strength is Within function limits. Activities of [...] and plan of care discussed with nursing, hospice case manager/assistant professor of music and PT. Frequency of Occupational Therapy Recommended: Evaluation Only Planned interventions may consist of any combination of the following: ?? ADL retraining Duration of Services: Acute care Occupational Therapy will continue until patient has met prior level of function, safety/independence, or is discharged from the facility. OT Total Treatment Time: 20min Evaluation Low - Complexity (09371) Tammy Lorenz MA, OTR/L WinYu mcfarlane PT [...] failure with preserved ejection fraction (HFpEF) ([facility]) Procedures/Diagnostics Affecting Therapy: Barriers to Learning: [...] with nursing, physician/advanced practice provider andcase manager rehab/assistant professor of music. Frequency of Physical Therapy Recommended: Evaluation Only [...] 20 minutes ?? Evaluation Low - Complexity ([id number]) Yu Pike PT Philly Crain MA, CCC/CLIMATE CHANGE ANALYST - 12/24/2021 9:24 AM CDT CLIMATE CHANGE ANALYST COURTESY NOTE Orders received for CLIMATE CHANGE ANALYST to eval and treat per stroke assessment [...] baseline with no deficits. Philly Crain MA, CCC/CLIMATE CHANGE ANALYST documented in this encounter H&P Notes Holly [...] failure with preserved ejection fraction (HFpEF) ([facility]) 12/24/2021 ??? Acute on chronic heart failure with preserved ejection fraction (HFpEF) ([facility]) 02/25/2021 ??? Stage 3b chronic kidney disease ([facility]) 02/25/2021 ??? Moderate asthma with acute exacerbation 02/25/2021 ??? Acute respiratory failure with hypoxia ([facility]) 02/25/2021 ??? Essential hypertension 02/25/2021 ??? Insulin dependent type 2 diabetes mellitus ([facility]) 02/25/2021 ??? Diabetic neuropathy ([facility]) 02/25/2021 ??? Type 2 diabetes mellitus with hyperglycemia, with long-term current use of insulin ([facility]) 02/25/2021 HPI: This 76 yo male with a PMH significant for CKD-3b, asthma, HFpEF, hyperlipidemia, HTN, hypothyroidism and DM-2 on insulin with prior episodes of TIA-like symptoms presented to the ER via EMS afterhe experienced about 30 minutes of visual field deficit and right arm and leg weakness the evening PAIN MEDICINE PHYSICIAN. He had been feeling fine throughout the [...] Depression Father ??? Cardiovascular Disease Father of ID ??? Asthma Sister ??? Asthma Brother ??? Depression Brother ??? Asthma Son He indicated that his mother is . He indicated that his father is . He indicated that his sister is alive. He indicated that his brother is alive. He indicated that his son is alive. Social History Social History Narrative , lives with his in their own home in [place]. They have 2 biological daughters, an adopted daughter and an adopted son and 9 grandchildren. 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 They have a [place] home near [place]. 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 Review of Systems Constitutional: Positive for fatigue. Negative for activity change, appetite change, chills and fever. Curtis more tired than usual the day of [...] IP CONSULT TO CARDIOLOGY Cardiology Consultation Site: [facility] Chief Complaint: Chief Complaint Patient presents with ??? Cerebral Vascular Accident History of Present Illness: Beth Duran is a pleasant 76 year old whom presented yesterday evening around midnight for evaluation of CVA type symptoms. He is seen today at the request of Mlaachi Alves APRN, CNP for troponin elevation. Yesterday [...] terms of CHF. He does have a living supervisor at [facility] in [place], [place]. Patient resides in [place], [place], has alake home here in [facility]. Past Medical History: Past Medical History: [...] Depression Father ??? Cardiovascular Disease Father of ID ??? Asthma Sister ??? Asthma Brother ??? [...] real-time polymerase chain reaction (PCR) on the [employer] GeneXpert System. Results should be used in [...] for this test can be found at: https://www.fda.gov/medical-devices/mbywlvobf-vkybrumruw-hbyglwi-devices/emergen yi-qtd-mhqacofscwciqb TROPONIN I Result Value Ref Range Troponin [...] repeat testing for the diagnosis of diabetes. [place] [employer] 2018 ?? LIPID PANEL Result [...] a stress test as outpatient with his living supervisor at [facility]. Plan of care reviewed with Dr. [...] 9:41 AM CDTAssociated Order(s): IP CONSULT TO LEAF CONDITIONER Discharge Planning Assessment Beth Duran is a 76 year old male with diagnosis of TIA (transient ischemic attack) [G45.9] Elevated troponin [R77.8] Transient ischemic attack [G45.9] Met with patient and explained the role of the assistant professor of music as part of the care team as well asthe discharge planning process. Prior Living Arrangements Type of Residence: home Living Arrangements: lives with spouse Care Facility Name: n/a Pharmacy (If Applicable): [facility] Current Home Services: none noted Current DME Agency: none noted Psychosocial needs Support System: family Dumpling Machine Operator/Manager Clinical Applications/Radiochemical Technician: none noted Health Care Agent/Guardian/POA/Conservator: pt is [...] pt said he is service connected Insurance: [facility] Medicare and pt said he has VA coverage Financial Concerns: none noted Readmission/LACE Score Current LACE score: 6 Readmission within 30 days? no Any known issues related to readmission? no Discharge Disposition Plan Patient/family preference for discharge: home when able Community Resource brochure given: offered and declined Community Family Consumer Science Teacher referral offered if appropriate: n/a How patient [...] benefit with Medicare Written Information Provided: ?? [facility] Your Outpatient Observation Stay handout (Y/N) yes ?? Self-Administered Drug handout (Y/N) yes - (required with Medicare and Medicare Replacement Cost plans) The patient and/or operations representative were provided the opportunity to ask questions, which were addressed. *The pt was informed to call Medicare directly for additional questions, or call the business officeif they receive a bill and continue to have questions. Maria E Laguna MD - 12/24/2021 12:38 AM CDTAssociated Order(s): IP CONSULT TO [employer] TELE-STROKE [facility] TELESTROKE CODE CONSULTATION: TODAY'S DATE: 12/24/2021 PATIENT NAME: Beth Duran DATE OF : 1945 History of Present Illness: This is a 76 year old male who I am asked to see via telestroke in the ER at [facility] in [place] at the request of Filemon Conrad MD;Devon* [...] Depression Father ??? Cardiovascular Disease Father of ID ??? Asthma Sister ??? Asthma Brother ??? [...] - symptoms resolved Maria E Laguna MD [facility] Telestroke/Teleurology Service As the provider for this [...] as well. - Originating site (patient location): [facility] ED - Distant site (telehealth provider location): [facility] Telestroke/Teleneurology Service Provider's residence - Video start [...] from the original note were not included. [facility] Emergency Physician Note Date: 12/24/21 Patient [...] the ground. He was then watching the [employer] women's basketball tournament when he noticed that [...] Sensation to light touch intact throughout. Normal viszlq-dz-yyul testing bilaterally. Psych: Appropriate mood and affect [...] Normal sinus rhythm, first-degree AV block with [place] interval 226 ms, PVCs present in a [...] with mepilex. Small abrasion to left clavicle. [place]. Will go home with when medically able. [...] Troponin I 0.283 (H) 0.000 - 12/24/2021 [facility] 0.028 3:00 PM CDT [facility] ng/mL LABORATORY Specimen Anatomical Collection Method / Collection Time Recei pee Time (Source) Location / Volume Laterality Blood BLOOD SPECIMEN / Venipuncture / 12/24/2021 2:35 2021 2:37 Unknown Unknown PM CDT PM CDT Narrative [facility] LABORATOR Y - 12/24/2021 3:00 PM CDT Because no pediatric reference range alhaji a is published, the adult reference range will be utilized as this represents 99% of healthy adults. Malachi Alves PARK SUPERINTENDENT, MARKETING DEVELOPER EC CHEMISTRY ORDERABLES Performing Organization Address City/State/ZIP Code Phon e Number [facility] [address] [address] 401 LABORATORY MR BRAIN WO CONTRAST (12/24/2021 [...] Gage MD 12/24/2021 2:15 PM Malachi Alves PARK SUPERINTENDENT, MARKETING DEVELOPER EC MRI ORDERABLES (ABNORMAL) GLUCOSE, METER (12/24/2021 11:11 AM CDT) P athologist Signature Glucose Meter 283 (H) 70 - 99 12/24/[address] mg/dL 11:17 AM CDT [facility] POINT OF CARE Specimen Anatomical Collection Method Collection Time Receive d Time (Source) Location / / Volume Laterality Blood BLOOD SPECIMEN / 12/24/2021 11:11 022 Unknown AM CDT 11:17 AM CDT Malachi Alves PARK SUPERINTENDENT, MARKETING DEVELOPER EC CHEMISTRY ORDERABLES Performing Organization Address City/State/ZIP Code Phon e Number EH [facility] [address] [address] POINT OF CARE ECHO ADULT COMPLETE W CONTRAST (12/24/2021 11:05 AM CDT) [facility] gist Method Time Signature RESULT [facility] XC ELERA [address] [address] ? Transthoracic Echocardiogram Report Name: BETH DURAN Aissatou ? Study Date: 12/24 ? Performing Location: [place] : 1945 ? Gender: Male Height: 72 [...] (indexed): 25.0 ? Interpreting Physician: ? Location: [place] Inpatient Specimen (Source) Anatomical Location Collection Method / Collectio n Time Received Time / Laterality Volume 12/24/2021 Holly Owen MD CV ECHO PROCEDURES Performing Organization Address City/[facility]/ZIP Code Phon e Number XC[facility] (ABNORMAL) TROPONIN I (12/24/2021 8:07 AM CDT) athologist Signature Troponin I 0.310 (H) 0.000 - 12/24/2021 [facility] 0.028 8:37 AM T [facility] ng/mL LABORATORY Specimen Anatomical Collection Method / Collection Time Recei pee Time (Source) Location / Volume Laterality Blood BLOOD SPECIMEN / Venipuncture / 12/24/2021 8:07 2021 8:11 Unknown Unknown AM CDT AM CDT Narrative [facility] LABORATOR Y - 12/24/2021 8:37 AM CDT Because no pediatric reference range alhaji a is published, the adult reference range will be utilized as this represents 99% of healthy adults. Holly Owen MD EC CHEMISTRY ORDERABLES Performing Organization Address City/State/ZIP Code Phon e Number [facility] [address] [address] LABORATORY (ABNORMAL) GLUCOSE, METER (12/24/2021 6:32 AM CDT) P athologist Signature Glucose Meter 184 (H) 70 - 99 12/24/2021 ST. mg/dL 6:38 AM CDT [facility] POINT OF CARE Specimen Anatomical Collection Method Collection Time Receive d Time (Source) Location / / Volume Laterality Blood BLOOD SPECIMEN / 12/24/2021 6:32 AM 12/24 6:38 Unknown CDT AM CDT Holly Owen MD EC CHEMISTRY ORDERABLES Performing Organization Address City/State/ZIP Code Phon e Number [facility] [address] [place] [address] POINT OF CARE (ABNORMAL) LIPID PANEL (12/24/2021 6:12 AM CDT) [facility] gist Method Time Signature Cholesterol 125 114 - 200 12/24/2021 ST. mg/dL 6:49 AM CDT [facility] LABORATORY HDL Cholesterol 28 (L) 40 - 60 12/24/2021 ST. mg/dL 6:49 AM CDT [facility] LABORATORY Triglycerides 156 10 - 200 12/24/2021 ST. mg/dL 6:49 AM CDT [facility] LABORATORY LDL Cholesterol, 66 mg/dL 12/24/2021 ST. Calculated 6:49 AM CDT [facility] LABORATORY Specimen Anatomical Collection Method / Collection Time Recei pee Time (Source) Location / Volume Laterality Blood BLOOD SPECIMEN / Venipuncture / 12/24/2021 6:12 2021 6:31 Unknown Unknown AM CDT AM CDT Narrative [facility] LABORATOR Y - 12/24/2021 6:49 [...] EC CHEMISTRY ORDERABLES ABN Performing Organization Address City/[facility] Phon e Number [facility] [address] [place] [address] LABORATORY (ABNORMAL) HEMOGLOBIN A1C (12/24/2021 6:12 AM CDT) Analysis Performed At Patho logist Time Signature Hemoglobin A1c 9.6 (H) 4.0 - 5.6 12/24/2021 ST. % 7:29 AM T [facility] LABORATORY Estimated 229 mg/dL 12/24/2021 [facility] Average Glucose 7:[address] [facility] LABORATORY Specimen Anatomical Collection Method / Collection Time Recei pee Time (Source) Location / Volume Laterality Blood BLOOD SPECIMEN / Venipuncture / 12/24/2021 6:12 2021 6:31 Unknown Unknown AM CDT AM CDT Narrative [facility] LABORATOR Y - 12/24/2021 7:29 AM CDT HGA1C Reference Ranges ??>= 6.5 ?? Diabetes* ??5.7-6.4 ??Impaired glucose tolerance ?? <5.7 ?Normal *In the absence of unequivocal hyperglyc emia, results should be confirmed by repeat testing for the diagnosis of diabetes. [place] [employer] 2018 ?? Holly Owen MD EC CHEMISTRY ORDERABLES ABN Performing Organization Address City/[facility] Phon e Number [facility] [address] [place] [address] LABORATORY (ABNORMAL) TROPONIN I (12/24/2021 6:12 AM CDT) P athologist Signature Troponin I 0.362 (H) 0.000 - 12/24/2021 [facility] 0.028 6:54 AM CDT MEDICAL CENTER ng/mL LABORATORY Specimen Anatomical Collection Method / Collection Time Recei pee Time (Source) Location / Volume Laterality Blood BLOOD SPECIMEN / Venipuncture / 12/24/2021 6:12 2021 6:31 Unknown Unknown AM CDT AM CDT Narrative [facility] LABORATOR Y - 12/24/2021 6:54 AM CDT Because no pediatric reference range alhaji a is published, the adult reference range will be utilized as this represents 99% of healthy adults. Holly Owen MD EC CHEMISTRY ORDERABLES Performing Organization Address City/State/ZIP Code Phon e Number [facility] [address] [place] [address] LABORATORY RAPID SARS-COV-2 RNA (COVID-19), MOLECULAR DETECTION (12/24/2021 12:27 AM CDT) [facility] Method Time Signature SARS-CoV-2 Negative Negative/Not 12/24/2021 [facility] RNA Detected 1:13 AM CDT [facility] (COVID-19) [facility] LABORATORY Comment: SARS-CoV-2 (COVID-19) target nu [...] AM CDT 12:31 AM CDT Unknown Narrative [facility] LABORATOR Y - 12/24/2021 1:13 AM CDT Test detects target RNA by real-time polymerase chain reaction (PCR) on the [employer] GeneXpert System. Results should be used in [...] for this test can be found at: https://www.fda.gov/medical-devices/zyuovongy-jgsleodosi-mwhsone-devices/emergen no-agp-qjqmbytoxxxulw Filemon Conrad MD EC MICROBIOLOGY - GENERAL OR DERABLES Performing Organization Address City/[facility]/ZIP Code Phon e Number [place] [address] LABORATORY EKG 12-LEAD (12/24/2021 12:06 AM CDT) athologist Signature Ventricular Rate 66 BPM MUSE Atrial Rate 66 BPM MUSE P-R Interval 226 ms MUSE QRS Duration 108 ms MUSE QT 470 ms MUSE QTc 492 ms MUSE P [place] 83 degrees MUSE R [place] -52 degrees MUSE T [place] 45 degrees MUSE Specimen (Source) Anatomical Collection [...] MD IP ECG ORDERABLES Performing Organization Address City/[facility]/ZIP Code Phon e Number MUSE MAGNESIUM (12/23/2021 11:52 PM CDT) athologist Signature Magnesium 2.0 1.8 - 2.7 12/24/2021 [facility] mg/dL 12:52 AM CDT [facility] CENTER LABORATORY Specimen Anatomical Collection Method / Collection Time Recei pee Time (Source) Location / Volume Laterality Blood BLOOD SPECIMEN / Venipuncture / 12/23/2021 11:52 12/23 Unknown Unknown PM CDT 11:57 PM CDT Filemon Conrad MD EC CHEMISTRY ORDERABLES Performing Organization Address [facility] Phon e Number [facility] [address] [place] [address] LABORATORY APTT (12/23/2021 11:52 PM CDT) P athologist Signature APTT 27 23 - 35 sec 12/24/2021 [facility] 12:10 AM T [facility] LABORATORY Specimen Anatomical Collection Method / Collection Time Recei pee Time (Source) Location / Volume Laterality Blood BLOOD SPECIMEN / Venipuncture / 12/23/2021 11:52 12/23 Unknown Unknown PM CDT 11:57 PM CDT Filemon Conrad MD EC HEMATOLOGY ORDERABLES Performing Organization Address City/[facility] Phon e Number [facility] [address] [address] LABORATORY PROTIME (12/23/2021 11:52 PM CDT) P athologist Signature INR 1.0 0.9 - 1.1 12/24/2021 [facility] 12:09 AM T [facility] LABORATORY Protime 13.4 12.0 - 14.2 12/24/2021 [facility] sec 12:09 AM T [facility] LABORATORY Specimen Anatomical Collection Method / Collection Time Recei pee Time (Source) Location / Volume Laterality Blood BLOOD SPECIMEN / Venipuncture / 12/23/2021 11:52 12/23 Unknown Unknown PM CDT 11:57 PM CDT Narrative [facility] LABORATOR Y - 12/24/2021 12:09 AM CDT Suggested therapeutic INR ranges for oral anticoagulant therapy: Category ? INR Value Prophylaxis ?2.0-3.0 Treat Thrombosis or Embolism ? 2.0-3 .0 Prosthetic Heart Valve ? 2. 5-3.5 Filemon Conrad MD EC HEMATOLOGY ORDERABLES Performing Organization Address [facility]/[place] [facility] Number [facility] [address] [address] LABORATORY BLOOD BANK DRAW & HOLD (12/23/2021 11:52 PM CDT) P athologist Signature BB DRAW ONLY COMM 12/24/2021 ST. 12:16 AM T [facility] BLOOD BANK Comment: A specimen has [...] EC BLOOD BANK ORDERABLES Performing Organization Address [facility]/ZIP Code Phon e Number [facility] [address] [address] 401 BLOOD BANK (ABNORMAL) HEMOGRAM/DIFFERENTIAL (12/23/2021 11:52 PM CDT) [facility] Method Time Signature WBC 9.1 3.2 - 12/24/2021 ST. 11.0 12:00 AM [facility] 10*9/L [facility] RBC 4.37 4.14 - 12/24/[address]21 ST. 5.76 12:00 AM [facility] 10*12/L [facility] HGB 12.8 (L) 12.9 - 12/24/2021 ST. 16.9 g/dL 12:[address] [facility] HCT 37.5 (L) 38.4 - 12/24/2021 ST[address] 49.7 % 12:[address] [facility] MCV 85.8 81.4 - 12/24/2021 ST[address] 99.0 fL 12:[address] [facility] MCH 29.3 26.7 - 12/24/2021 ST. 33.1 pg 12:[address] [facility] MCHC 34.1 31.6 - 12/24/2021 ST. 35.5 g/dL 12:[address] [facility] RDW 13.1 11.3 - 12/24/2021 ST. 14.6 % 12:[address] [facility] PLT 201 130 - 375 12/24/2021 ST. 10*9/L 12:[address] [facility] Neutrophils % 68.6 % 12/24/2021 ST. 12:[address] [facility] Lymphocytes % 15.4 % 12/24/2021 ST. 12:[address] [facility] Monocytes % 7.8 % 12/24/2021 ST. 12:[address] [facility] Eosinophils % 6.5 % 12/24/2021 ST. 12:[address] [facility] Basophils % 1.1 % 12/24/2021 ST. 12:[address] [facility] Immature 0.6 % 12/24/2021 ST. Granulocytes % 12:[address] [facility] Neutrophils 6.2 1.5 - 7.6 12/24/2021 ST. Absolute 10*9/L 12:[address] [facility] Lymphocytes 1.4 0.8 - 3.3 12/24/2021 ST. Absolute 10*9/L 12:[address] [facility] Monocytes 0.7 0.2 - 0.9 12/24/2021 ST. Absolute 10*9/L 12:[address] [facility] Eosinophils 0.6 (H) 0.0 - 0.4 12/24/2021 ST. Absolute 10*9/L 12:[address] [facility] Basophils 0.1 0.0 - 0.1 12/24/2021 ST. Absolute 10*9/L 12:[address] [facility] Immature 0.05 0.00 - 12/24/2021 ST. Granulocytes 0.06 12:00 AM [facility] Absolute 10*9/L [facility] Specimen Anatomical Collection Method / Collection Time Recei pee Time (Source) Location / Volume Laterality Blood BLOOD SPECIMEN / Venipuncture / 12/23/2021 11:52 12/23 Unknown Unknown PM CDT 11:57 PM CDT Filemon Conrad MD EC HEMATOLOGY ORDERABLES Performing Organization Address [facility] Phon e Number [facility] [address] [address] 401 LABORATORY (ABNORMAL) TROPONIN I (12/23/2021 11:52 PM CDT) P athologist Signature Troponin I 0.377 (H) 0.000 - 12/24/2021 [facility] 0.028 12:22 AM CDT [facility] ng/mL LABORATORY Specimen Anatomical Collection Method / Collection Time Recei pee Time (Source) Location / Volume Laterality Blood BLOOD SPECIMEN / Venipuncture / 12/23/2021 11:52 12/23 Unknown Unknown PM CDT 11:57 PM CDT Narrative [facility] LABORATOR Y - 12/24/2021 12:22 AM CDT Because no pediatric reference range alhaji a is published, the adult reference range will be utilized as this represents 99% of healthy adults. Filemon Conrad MD EC CHEMISTRY ORDERABLES Performing Organization Address [facility] Phon e Number [facility] [address] [address] 401 LABORATORY (ABNORMAL) BASIC METABOLIC PANEL (12/23/2021 11:52 PM CDT) Patholo gist Method Time Signature Sodium 139 134 - 143 12/24/2021 ST. mEq/L 12:17 AM [facility] Potassium 4.2 3.4 - 5.1 12/24/2021 ST. mEq/L 12:17 AM [facility] Chloride 105 99 - 110 12/24/2021 ST. mEq/L 12:17 AM [facility] Carbon Dioxide 20 19 - 29 12/24/2021 ST. mEq/L 12:17 AM [facility] Anion Gap 14.0 3.0 - 15.0 12/24/2021 ST. mEq/L 12:[address] [facility] Blood Urea 36 (H) 5 - 24 12/24/2021 ST. Nitrogen mg/dL 12:[address] [facility] Creatinine 1.58 (H) 0.70 - 12/24/2021 ST. 1.20 mg/dL 12:[address] [facility] Glomerular 43 (L) >60 12/24/2021 [facility]. Filtration Rate mL/min/1.7 12:17 AM [facility] 3 m*2 [facility] Comment: Complications of CKD and risk o f cardiovascular disease increase when GFR is below 60ml.min/1.73m2. A persistently re duced GFR is a specific indication of Chronic Kidney Disease. The eGFR calculation has not been validated in patients >70yrs. Calcium 9.3 8.4 - 10.5 mg/dL 12/24/2021 12:17 AM CDT [facility] Glucose 113 (H) 70 - 99 mg/dL 12/24/2021 12:17 AM CDT [facility] Specimen Anatomical Collection Method / Collection Time Recei pee Time (Source) Location / Volume Laterality Blood BLOOD SPECIMEN / Venipuncture / 12/23/2021 11:52 12/23 Unknown Unknown PM CDT 11:57 PM CDT Narrative [facility] LABORATOR Y - 12/24/2021 12:17 [...] Organization Address City/State/ZIP Code Phon e Number [address] ANGIO HEAD [...] iohexol (Omnipaque) 350 MG/ML 80 mL (COMPLETED) 1776 (Given - Provider: Octavio Glover, RT(R)) 80 [...] TO CARDIOLOGY 1 12/24/2021 IP CONSULT TO LEAF CONDITIONER 1 12/24/2021 IP CONSULT TO SASKIA TELE-STROKE 1 12/23/2021 documented in this encounter
--- OUTSIDE RECORDS SUMMARY | 2022-05-28 07:04 | XMS_ITS | Encounter Summary ---
:1945 Author Organization [employer] Address [address] [address] Phone Care Team Providers Name Role Phone [...]
--- OUTSIDE RECORDS SUMMARY | 2022-05-28 07:04 | XMS_ITS | Encounter Summary ---
:1945 Author Organization [employer] Address [address] [address] Phone Care Team Providers Name Role Phone Unavailable Primary Care Provider Unavailable Reason for Visit Reason Comments Difficulty Breathing Auth/Cert Specialty Diagnoses / Procedures Referred By Contact Refer red To Contact Diagnoses Acute left-sided CHF (congestive heart failure) (HCC) [facility] [address] [place] [address] [place] [address] Referral ID Status Reason Start Date Expiration Date Visits Requ ested Visits Authorized [id number] 1 1 Encounter Details Date Type Department Care Team Description 02/25/2021 - Hospital Encounter [facility], Gavino Cee MD [address] [place] [address] [phone] Acute on chronic congestive heart failur e, unspecified heart failure type (HCC) (Primary Dx); 02/26/2021 Center Jill Gupta MD [address] [place] [address] [phone] Moderate persistent asthma with acute ex acerbation [address] [place] [address] [id number] Social History Tobacco Use Types Packs/Day Years [...] Date: 02/26/2021 Patient will be discharged from [facility] to Home. Discharge Diagnoses: # Acute on chronic HFpEF; EF 50% echo 11/17/20 ([place]). # Moderate asthma with acute exacerbation. # Acute hypoxic respiratory failure. 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 Discharge Procedure Orders Diet/NPO Status Order Specific [...] with chronic HFpEF; EF 50% echo 11/17/20 ([place]), asthma, HTN, insulin-dependent type 2 diabetes. 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 Home oxygen test shows oxygen saturation of 90% on room air but with activity saturation dropped to 87%. Patient will need 2 L of oxygen with activity. DME for home oxygen done. Admitting diagnoses: # Acute on chronic HFpEF; EF 50% echo 11/17/20 ([place]). # Moderate asthma with acute exacerbation. # [...] occasional unintended word substitution. Jill Baugh MD [facility] Internal Medicine/Hospitalist CC: No primary care provider [...] your medicine. Do not use any medicines, bdkg-krp-vfmrotk drugs, vitamins, herbs, or food supplements without [...] smoke. Smoking cessation support is available at [employer] (8-717-431-FKTH([phone]) or [employer]). Jonnathan Costa does not smoke. We are concerned about your emotional health after discharge. If you are feeling alone, sad, or hopeless, a 24 hour suicide crisis and referral hotline is available at [employer] (3992) or toll-free at Heart Failure:Weigh your self [...] Care Everywhere. Heart Failure, Discharge Instructions for (Gambian)documented in this encounter Medications at Time of [...] Code Departure Means Destination Home and/or Self [facility] documented in this encounter Progress Notes Catalina [...] list of DME suppliers; they have chosen [employer] for their home oxygen needs. Marko Batista [...] lives with spouse in a home in [facility], it is multiple levels, seemingly has to [...] Function/Coordination: Dominant Hand: Right Bilateral coordination and casting carrier strength is Within function limits. 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 NA Precautions: ?? Full code ?? Oxygen: 2 LPM with activity ?? DM II ?? Falls: Bed/chair alarm SUBJECTIVE Pt agrees to PT wili but plans to leave today at 1400 as needs to be at [facility] tomorrow for a follow up appointment - see chart for further information. RT states he needs 2L oxygen with standing tasks/activities , 5 children, lives in [facility]. 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 Evaluation Low - Complexity (66418) Harman Coles, PT Priyanka Yanes RN - 02/25/2021 8:10 PM CDT Jonnathan Costa admitted to Tele unit from emergency department. Transported via wheelchair with O2 escorted by technician support engineer. Notification of admission: not applicable. Handoff received from ALISSA Zhu RN. Belongings verified: Yes See belongings flowsheet. Priyanka aYnes RN documented in this encounter H&P Notes Jill Baugh MD - 02/25/2021 5:59 PM CDT 02/25/2021 HOSPITALIST ADMISSION NOTE Jill Baugh MD [facility] Patient Name: Jonnathan Costa Date: 1945 Location/Room #: Admission Date: 02/25/2021 Date of service: 02/25/2021 Provider: Jill Baugh MD, Internal Medicine/Hospitalist CC: Progressive shortness of breath with weight gain. HPI: 75-year-old man with chronic HFpEF; EF 50% echo 11/17/20 ([place]), asthma, HTN, insulin-dependent type 2 diabetes. Presents [...] salt. Was recently seen by his cardiology [employer] in [place] on 02/22/21 who made some changes to his medications as follows >> amiodarone discontinued because of hypothyroidism (TSH of 10.3 on 01/11/21), hydralazine and nitrates discontinued, losartan started, torsemide dose was increased from daily to twice daily, metoprolol dose was increased to 50 mg daily. Echo 11/17/20 ([place]): Final Impressions - Mild-moderately enlarged left ventricular [...] on chronic HFpEF; EF 50% echo 11/17/20 ([place]). # Possible acute asthma exacerbation. # Acute [...] Medical problems Hypothyroidism 02/23/2021 Atherosclerotic Heart Disease [place] Coronary [...] with Dr. Prasanna Bernal at the [facility].?? COLONOSCOPY 08/10/2013 ?? Repeat in 5 [...] children. Accompanied by and daughter. Lives in [facility]. Quitsmoking about 40 years ago. Rarely drinks [...] occasional unintended word substitution. Jill Baugh MD [facility] Internal Medicine/Hospitalist documented in this encounter Consult Antonella De La Torre PharmD - 02/25/2021 6:43 PM CDT [employer] Medication History obtained by: Antonella Randhawa, Pharm.D Home medication list updated using: spouse and Care Everywhere (Organization: [facility]) Spoke with the patient? 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 He follow-up with his laborer dairy farm on . Multiple adjustments were made to [...] 02/26/[address] mg/dL 12:[address] [facility] POINT OF CARE Specimen Anatomical Collection Method Collection Time Receive d Time (Source) Location / / Volume Laterality Blood BLOOD SPECIMEN / 02/26/2021 12:00 021 Unknown PM CDT 12:06 PM CDT Jill Baugh MD EC CHEMISTRY ORDERABLES Performing Organization Address City/[facility] Phon e Number [facility] [address] [address] POINT OF CARE (ABNORMAL) GLUCOSE, METER (02/26/2021 7:31 AM CDT) athologist Signature Glucose Meter 246 (H) 70 - 99 02/26/[address] mg/dL 7:[address] [facility] POINT OF CARE Specimen Anatomical Collection Method Collection Time Receive d Time (Source) Location / / Volume Laterality Blood BLOOD SPECIMEN / 02/26/2021 7:31 AM 02/26 7:37 Unknown CDT AM CDT Jill Baugh MD EC CHEMISTRY ORDERABLES Performing Organization Address [facility] Phon e Number [facility] [address] [address] POINT OF CARE (ABNORMAL) HEMOGRAM (02/26/2021 5:56 AM CDT) athologist Signature WBC 4.9 3.2 - 11.0 02/26/2021 [facility] 10*9/L 6:33 AM T [facility] RBC 3.39 (L) 4.14 - 5.76 02/26/2021 [facility] 10*12/L 6:33 AM [facility] HGB 10.3 (L) 12.9 - 16.9 02/26/2021 [facility] g/dL 6:33 AM [facility] HCT 31.2 (L) 38.4 - 49.7 02/26/2021 [facility] % 6:33 AM [facility] MCV 92.0 81.4 - 99.0 02/26/2021 [facility] fL 6:33 AM [facility] MCH 30.4 26.7 - 33.1 02/26/2021 [facility] pg 6:33 AM [facility] MCHC 33.0 31.6 - 35.5 02/26/2021 [facility] g/dL 6:33 AM [facility] RDW 13.1 11.3 - 14.6 02/26/2021 [facility] % 6:33 AM [facility] PLT 179 130 - 375 02/26/2021 [facility] 10*9/L 6:33 AM [facility] Specimen Anatomical Collection Method / Collection Time Recei pee Time (Source) Location / Volume Laterality Blood BLOOD SPECIMEN / Venipuncture / 02/26/2021 5:56 2020 6:27 Unknown Unknown AM CDT AM CDT Jill Baugh MD EC HEMATOLOGY ORDERABLES Performing Organization Address City/State/ZIP Code Phon e Number [place] [address] 401 LABORATORY (ABNORMAL) BASIC METABOLIC PANEL (02/26/2021 5:56 AM CDT) [facility] Method Time Signature Sodium 139 134 - 143 02/26/2021 ST. mEq/L 6:56 AM [facility] Potassium 4.4 3.4 - 5.1 02/26/2021 ST. mEq/L 6:56 AM [facility] Chloride 108 99 - 110 02/26/2021 ST. mEq/L 6:56 AM [facility] Carbon Dioxide 21 19 - 29 02/26/2021 ST. mEq/L 6:56 AM [facility] Anion Gap 10.0 3.0 - 15.0 02/26/2021 ST. mEq/L 6:56 AM [facility] Blood Urea 32 (H) 5 - 24 02/26/2021 ST. Nitrogen mg/dL 6:56 AM [facility] Creatinine 1.62 (H) 0.70 - 02/26/2021 ST. 1.20 mg/dL 6:56 AM [facility] Glomerular 42 (L) >60 02/26/2021 [facility]. Filtration Rate mL/min/1.7 6:56 AM [facility] 3 m*2 [facility] Comment: Complications of CKD and risk o f cardiovascular disease increase when GFR is below 60ml.min/1.73m2. A persistently re duced GFR is a specific indication of Chronic Kidney Disease. The eGFR calculation has not been validated in patients >70yrs. Calcium 8.5 8.4 - 10.5 mg/dL 02/26/2021 6:56 AM T [facility] Glucose 238 (H) 70 - 99 mg/dL 02/26/2021 6:56 AM T [facility] Specimen Anatomical Collection Method / Collection Time Recei pee Time (Source) Location / Volume Laterality Blood BLOOD SPECIMEN / Venipuncture / 02/26/2021 5:56 2020 6:27 Unknown Unknown AM CDT AM CDT Narrative [facility] LAB[facility] Y - 02/26/2021 6:56 AM [...] Organization Address City/State/ZIP Code Phon e Number [facility] [address] [place] [address] 401 LABORATORY EKG 12-LEAD (02/25/2021 11:08 PM CDT) P athologist Signature Ventricular Rate 62 BPM MUSE Atrial Rate 62 BPM MUSE P-R Interval 232 ms MUSE QRS Duration 98 ms MUSE QT 480 ms MUSE QTc 487 ms MUSE P Baltic 18 degrees MUSE R Baltic -41 degrees MUSE T Baltic -39 degrees MUSE Specimen (Source) Anatomical Collection [...] MD IP ECG ORDERABLES Performing Organization Address City/[facility]/ZIP Code Phon e Number MUSE (ABNORMAL) GLUCOSE, METER (02/25/2021 9:15 PM CDT) athologist Signature Glucose Meter 276 (H) 70 - 99 02/25/[address] mg/dL 9:[address] [facility] POINT OF CARE Specimen Anatomical Collection Method Collection Time Receive d Time (Source) Location / / Volume Laterality Blood BLOOD SPECIMEN / 02/25/2021 9:15 PM 02/25 9:21 Unknown CDT PM CDT Jill Baugh MD EC CHEMISTRY ORDERABLES Performing Organization Address City/[facility] Phon e Number [facility] [address] [place] [address] POINT OF CARE STAT SARS-COV-2 RNA (COVID-19) (02/25/2021 6:31 PM CDT) [facility] gist Method Time Signature SARS-CoV-2 Negative Negative/Not 02/25/2021 ST. RNA Detected 7:15 PM CDT [facility] Comment: SARS-CoV-2 (COVID-19) target nu [...] / PM CDT PM CDT Unknown Narrative [facility] LABORATOR Y - 02/25/2021 7:15 PM CDT Test detects target RNA by real-time polymerase chain reaction (PCR) on the [employer] GeneXpert System. Results should be used in [...] for this test can be found at: https://www.fda.gov/medical-devices/hqmfiwdzt-ngmsvpbglv-mytxlqt-devices/emergen we-xke-lpfpetuowqejev Johnson Rubio MD EC MICROBIOLOGY - GENERAL OR DERABLES Performing Organization Address City/State/ZIP Code Phon e Number [place] [phone] [place] [address] LABORATORY XR CHEST 2 VIEWS (02/25/2021 5:15 [...] CDT) athologist Signature Procalcitonin 0.04 <0.50 02/25/2021 [facility] ng/mL 7:27 PM CDT [facility] Specimen Anatomical Collection Method / Collection Time Recei pee Time (Source) Location / Volume Laterality Blood BLOOD SPECIMEN / Venipuncture / 02/25/2021 4:55 2020 4:59 Unknown Unknown PM CDT PM CDT Narrative [facility] LABOR[facility] Y - 02/25/2021 7:27 PM [...] Organization Address City/State/ZIP Code Phon e Number [facility] [address] [place] [address] LABORATORY MAGNESIUM (02/25/2021 4:55 PM CDT) P athologist Signature Magnesium 2.0 1.8 - 2.7 02/25/2021 [facility] mg/dL 6:20 PM [facility] LABORATORY Specimen Anatomical Collection Method / Collection Time Recei pee Time (Source) Location / Volume Laterality Blood BLOOD SPECIMEN / Venipuncture / 02/25/2021 4:55 2020 4:59 Unknown Unknown PM CDT PM CDT Jill Baugh MD EC CHEMISTRY ORDERABLES Performing Organization Address City/[facility] Code Phon e Number [facility] [address] [place] [address] LABORATORY (ABNORMAL) BASIC METABOLIC PANEL (02/25/2021 4:55 PM CDT) Patholo gist Method Time Signature Sodium 138 134 - 143 02/25/2021 ST. mEq/L 5:17 PM [facility] Potassium 4.8 3.4 - 5.1 02/25/2021 ST. mEq/L 5:17 PM [facility] Chloride 106 99 - 110 02/25/2021 ST. mEq/L 5:17 PM [facility] Carbon Dioxide 22 19 - 29 02/25/2021 ST. mEq/L 5:17 PM [facility] Anion Gap 10.0 3.0 - 15.0 02/25/2021 ST. mEq/L 5:17 PM [facility] Blood Urea 30 (H) 5 - 24 02/25/2021 ST. Nitrogen mg/dL 5:17 PM [facility] Creatinine 1.62 (H) 0.70 - 02/25/2021 ST. 1.20 mg/dL 5:17 PM [facility] Glomerular 42 (L) >60 02/25/2021 ST. Filtration Rate mL/min/1.7 5:17 PM [facility] 3 m*2 [facility] Comment: Complications of CKD and risk o f cardiovascular disease increase when GFR is below 60ml.min/1.73m2. A persistently re duced GFR is a specific indication of Chronic Kidney Disease. The eGFR calculation has not been validated in patients >70yrs. Calcium 9.0 8.4 - 10.5 mg/dL 02/25/2021 5:17 PM CDT [facility] Glucose 357 (H) 70 - 99 mg/dL 02/25/2021 5:17 PM CDT [facility] Specimen Anatomical Collection Method / Collection Time Recei pee Time (Source) Location / Volume Laterality Blood BLOOD SPECIMEN / Venipuncture / 02/25/2021 4:55 2020 4:59 Unknown Unknown PM CDT PM CDT Narrative [facility] LABOR[facility] Y - 02/25/2021 5:17 PM [...] Organization Address City/State/ZIP Code Phon e Number [address] [address] LABORATORY TROPONIN I (02/25/2021 4:55 PM CDT) P athologist Signature Troponin I 0.028 0.000 - 02/25/2021 [facility] 0.028 ng/mL 5:24 PM CDT [facility] Specimen Anatomical Collection Method / Collection Time Recei pee Time (Source) Location / Volume Laterality Blood BLOOD SPECIMEN / Venipuncture / 02/25/2021 4:55 2020 4:59 Unknown Unknown PM CDT PM CDT Narrative [facility] LAB[facility] Y - 02/25/2021 5:24 PM CDT Because no pediatric reference range alhaji a is published, the adult reference range will be utilized as this represents 99% of healthy adults. Johnson Rubio MD EC CHEMISTRY ORDERABLES Performing Organization Address [facility] Phon e Number [facility] [address] [address] LABORATORY (ABNORMAL) BNP (02/25/2021 4:55 PM CDT) [facility] Method Time Signature B-Type 1,113 (H) <=100 02/25/2021 ST. Natriuretic pg/mL 5:24 PM CDT [facility] Peptide (BNP) [facility] LAB[facility] Specimen Anatomical Collection Method / Collection Time Recei pee Time (Source) Location / Volume Laterality Blood BLOOD SPECIMEN / Venipuncture / 02/25/2021 4:55 2020 4:59 Unknown Unknown PM CDT PM CDT Narrative [facility] LABORATOR Y - 02/25/2021 5:24 PM CDT CAUTION: BNP results will be elevated in patients on nesiritide (Natrecor). Please wait five half-lives (2 hrs) after infus ion of nesiritide before drawing a BNP level. Johnson Rubio MD EC CHEMISTRY ORDERABLES ABN Performing Organization Address [facility] Phon e Number [facility] [address] [address] LABORATORY (ABNORMAL) HEMOGRAM/DIFFERENTIAL (02/25/2021 4:55 PM CDT) [facility] Method Time Signature WBC 8.3 3.2 - 02/25/2021 ST. 11.0 5:02 PM CDT [facility] 10*9/L [facility] RBC 3.75 (L) 4.14 - 02/25/2021 ST. 5.76 5:02 PM CDT [facility] 10*12/L [facility] HGB 11.5 (L) 12.9 - 02/25/2021 ST. 16.9 g/dL 5:[address] [facility] HCT 35.2 (L) 38.4 - 02/25/2021 ST. 49.7 % 5:[address] [facility] MCV 93.9 81.4 - 02/25/2021 ST. 99.0 fL 5:02 PM [facility] MCH 30.7 26.7 - 02/25/2021 ST. 33.1 pg 5:02 PM [facility] MCHC 32.7 31.6 - 02/25/2021 ST. 35.5 g/dL 5:02 PM [facility] RDW 13.5 11.3 - 02/25/2021 ST. 14.6 % 5:02 PM [facility] PLT 171 130 - 375 02/25/2021 ST. 10*9/L 5:02 PM [facility] Neutrophils % 83.0 % 02/25/2021 ST. 5:02 PM [facility] Lymphocytes % 6.6 % 02/25/2021 ST. 5:02 PM [facility] Monocytes % 6.3 % 02/25/2021 ST. 5:02 PM [facility] Eosinophils % 2.9 % 02/25/2021 ST. 5:02 PM [facility] Basophils % 0.7 % 02/25/2021 ST. 5:02 PM [facility] Immature 0.5 % 02/25/2021 ST. Granulocytes % 5:02 PM [facility] Neutrophils 6.9 1.5 - 7.6 02/25/2021 ST. Absolute 10*9/L 5:02 PM [facility] Lymphocytes 0.6 (L) 0.8 - 3.3 02/25/2021 ST. Absolute 10*9/L 5:02 PM [facility] Monocytes 0.5 0.2 - 0.9 02/25/2021 ST. Absolute 10*9/L 5:02 PM [facility] Eosinophils 0.2 0.0 - 0.4 02/25/2021 ST. Absolute 10*9/L 5:02 PM [facility] Basophils 0.1 0.0 - 0.1 02/25/2021 ST. Absolute 10*9/L 5:02 PM [facility] Immature 0.04 0.00 - 02/25/2021 ST. Granulocytes 0.06 5:02 PM CDT [facility] 10*9/L [facility] Specimen Anatomical Collection Method / Collection Time Recei pee Time (Source) Location / Volume Laterality Blood BLOOD SPECIMEN / Venipuncture / 02/25/2021 4:55 2020 4:59 Unknown Unknown PM CDT PM CDT Johnson Rubio MD EC HEMATOLOGY ORDERABLES Performing Organization Address City/State/ZIP Code Phon e Number [facility] [address] [place] [address] LABORATORY documented in this encounter Visit [...] Cap by Deleted via home med 11/27/201802/25 [id number], mouth before large review ([id number]) [id number] meals UNIT Capsule Delayed Release Particles documented [...]
--- OUTSIDE RECORDS SUMMARY | 2022-05-28 07:04 | XMS_ITS | Encounter Summary ---
:1945 Author Organization [employer] Address [address] [address] Phone Care Team Providers Name Role Phone Unavailable Primary Care Provider Unavailable Reason for Visit Reason Comments Fall Encounter Details Date Type Department Care Team Description 03/09/2019 Office Visit [facility]Josiah Khan cause of URGENT CARE MD [place] morbidity or mortality [id number] (Primary Dx) [place] [address] [place] [phone] Social History Tobacco Use Types Packs/Day [...] on a blood thinner. Per Dr Gentile fiction writer advised patient to present to the ER. Patient was given gauze and cleaned up by fiction writer before leaving urgent care. documented in this encounter Plan of Treatment Not on filedocumented as of this encounter Visit Diagnoses Diagnosis Unknown cause of morbidity or mortality - Primary Other unknown and unspecified cause of m orbidity or mortality documented in this encounter
--- OUTSIDE RECORDS SUMMARY | 2022-05-28 07:04 | XMS_ITS | Encounter Summary ---
:1945 Author Organization [employer] Address [address] [address] Phone Care Team Providers Name Role Phone [...]
--- OUTSIDE RECORDS SUMMARY | 2022-05-28 07:04 | XMS_ITS | Encounter Summary ---
:1945 Author Organization [facility] Address [address] [address] Phone Care Team Providers Name Role Phone Unavailable Primary Care Provider Unavailable Reason for Visit Reason Comments Fall Head Laceration Encounter Details Date Type Department Care Team Description 03/09/2019 Emergency [facility], Rusty Nguyen MD Closed head injury, initial encounter (P rimary Dx); Center Emergency [address] Facial laceration, initial encounter; Department NORTH Abrasion of right knee, initial encounte r; [address] [place] [address] Chest wall contusion, right, initial enc ount [place] [address] [phone] Social History Tobacco Use Types Packs/Day Years [...] sent through Care Everywhere. Chest Wall Contusion (Puerto Rican)Head Injury (Adult) (Puerto Rican)Laceration, Face: Stitches or Tape (Puerto Rican)Laceration, Extremity: Skin Glue (Puerto Rican)documented in this encounter Medications at Time of Discharge Medication Sig Dispensed Refills Start Date End Date clopidogrel (Plavix) 75 MG Take 1 Tablet by 0 09/2015 tablet mouth every afternoon. escitalopram (Lexapro) 10 Take 10 mg by mouth 0 0 04/28/2018 MG tablet every afternoon. documented as of this encounter Discharge Disposition Disposition Code Departure Means Destination Home and/or Self Mcfp documented in this encounter ED Notes Gurmeet [...] Bryan RN at 03/09/2019 7:27 PM pancrelipase, [id number], ([id number]) [id number] UNIT Capsule Delayed Release Particles Take 1 [...] Disposition: ED Disposition ED Disposition Comment Discharge [facility] thanks you for allowing us to assist you with your healthcare needs. This document contains patient education materials and information regarding your injury/illness. *If you need copies of your x-rays for a f ollow up appointment please call [phone] to arrange for sampler pickup. If you had an IV in place [...]
== END 2022-05-27 10:42 | disposition home or self-care (01) ==
LOC: AMB 05-28 06:33
PROVIDERS: Visit Provider Family Medicine
DX: L02.31 Cutaneous abscess of buttock (principal)
CPT/HCPCS: A0425; A0429

== ENCOUNTER 2022-05-27 11:05 | Emergency (ER) | payer MEDICARE, SELFPAY ==
--- NOTE | 2022-05-27 11:08 | ED.GENADULT ---
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 COPD, BPH status post TURP, presents emergency department from [facility] by EMS with bedsores. patient was seen here on 05/09 for the same, had an incision and drainage done and placed on some antibiotics. Patient states over the last 5 days he has had increasing pain in area of swelling to his right lower buttock, there is just below his previous abscess. Patient does not remember which antibiotics he was placed on, since his stroke has been lying on his back a lot, he denies any fevers, chills myalgias arthralgias. No history of any MRSA. No other concerns at this time Related Data Home Medications Medication Instructions Recorded Confirmed acetaminophen 500 mg tablet mg 05/09/22 (Tylenol Extra Strength) atorvastatin 80 mg tablet mg 05/09/22 cholecalciferol (vitamin D3) 25 05/09/22 mcg (1,000 unit) tablet clopidogrel 75 mg tablet (Plavix) mg 05/09/22 empagliflozin 25 mg tablet mg 05/09/22 (Jardiance) escitalopram oxalate 10 mg tablet mg 05/09/22 insulin aspart U-100 100 unit/mL 05/09/22 subcutaneous solution (Novolog U-100 Insulin aspart) insulin glargine 100 unit/mL (3 unit subcut 05/09/22 mL) subcutaneous pen levothyroxine 100 mcg tablet mcg 05/09/22 lorazepam 0.5 mg tablet mg 05/09/22 losartan 25 mg tablet mg 05/09/22 mirtazapine 30 mg tablet mg 05/09/22 oxycodone 5 mg tablet mg 05/09/22 polyethylene glycol 3350 17 g 05/09/22 gram/dose oral powder (Miralax) sennosides 8.6 mg tablet (Senna mg 05/09/22 Lax) torsemide 10 mg tablet mg 05/09/22 trazodone 50 mg tablet mg 05/09/22 Previous Rx's Medication Instructions Recorded cefuroxime axetil 500 mg tablet 500 mg PO BID 7 days #14 tabs 05/27/22 Allergies Allergy/AdvReac Type Severity Reaction Status Date / Time lisinopril Allergy Unknown Verified 05/09/22 13:14 Penicillins Allergy Unknown Verified 05/09/22 13:14 Sulfa (Sulfonamide Allergy Unknown Verified 05/09/22 13:14 Antibiotics) Review of Systems Status of ROS: Reports: 10 or more systems reviewed and unremarkable except as noted in History and below PFSH PFSH Social History Smoking Status: Former smoker Do you use any of these nicotine containing products: None Second hand tobacco smoke exposure: No How often do you have a drink containing alcohol: never AUDIT-C Alcohol total score: 0 Non-prescribed substance use: denies use service: No Exam Narrative: Exam Narrative: General: No obvious distress laying comfortably, nontoxic in appearance HEENT: Pupils equal round reactive to light Neck: Supple full range of motion Lungs: Clear to auscultation bilaterally Heart: S1-S2 normal sinus rhythm Abdomen: Soft nontender bowel sounds present Muscle skeletal: Chronic right-sided hemiparesis Skin: Right lower buttock there is a small circular area of erythema measuring around 6 cm in diameter, there is some induration and fluctuance, no drainage tender to palpation Const: Vital Signs, click to edit/add: Vital Signs - 24 hr 05/27/22 11:11 Temperature 96.5 F L Pulse Rate [Right Pulse Oximeter] 82 Respiratory Rate 18 Blood Pressure [Ri ght Upper Arm] 135/80 Pulse Oximetry 95 Oxygen Delivery Me thod Room Air Course Course Hospital Course: 11:45 AM: Workup will include incision and drainage, likely cover him with antibiotics based on his history of diabetes, no history of any MRSA, please see procedure note. Differential diagnosis includes dermatitis, cellulitis, necrotizing fasciitis, skin abscess, sepsis, decubitus ulcers, as well as all etiologies. Reevaluation(s) Time: 12:13 Reevaluation #2: Incision and drainage performed, dressing applied, plan to cover him with cefuroxime 500 mg twice daily over the next 7 days, was unable to obtain a culture due to minimal purulent material. The patient should follow up with his primary care provider over the next 3-5 days for ER followup and recheck. Reasons to return given Vital Signs Vital signs: Initial Vital Signs Temperature 96.5 F L 05/27/22 11:11 Temperature Source Temporal Artery Scan 05/27/22 11:11 Pulse Rate 82 05/27/22 11:11 Respiratory Rate 18 05/27/22 11:11 Blood Pressure 135/80 05/27/22 11:11 Blood Pressure Mean 98 05/27/22 11:11 Blood Pressure Position Sitting 05/27/22 11:11 Pulse Oximetry 95 05/27/22 11:11 Oxygen Delivery Method 05/27/22 11:11 Vital Signs Temperature 96.5 F L 05/27/22 11:11 Pulse Rate 82 05/27/22 11:11 Respiratory Rate 18 05/27/22 11:11 Blood Pressure 135/80 05/27/22 11:11 Pulse Oximetry 95 05/27/22 11:11 Oxygen Delivery Method 05/27/22 11:11 Temperature 96.5 F L 05/27/22 11:11 Pulse Rate 82 05/27/22 11:11 Respiratory Rate 18 05/27/22 11:11 Blood Pressure 135/80 05/27/22 11:11 Pulse Oximetry 95 05/27/22 11:11 Oxygen Delivery Method 05/27/22 11:11 Discharge Plan Discharge Clinical Impression: Abscess of buttock, right Patient Disposition: Home, Self-Care Instructions: Abscess (ED) Additional Instructions: To continue the antibiotics twice daily over the next 7 days, continue with warm soaks and dressing changes daily, to follow up with primary care provider for ER followup and recheck in the next 3-5 days. Return if worsening symptoms. Activity Level: No Restrictions Prescriptions: New cefuroxime axetil 500 mg tablet 500 mg PO BID 7 Days Qty: 14 0RF No Action atorvastatin 80 mg tablet Label Comments: Take 1 tablet by mouth at bedtime clopidogrel [Plavix] 75 mg tablet Label Comments: Take 1 tablet by mouth every morning acetaminophen [Tylenol Extra Strength] 500 mg tablet Label Comments: Take 2 tablet by mouth three times a day cholecalciferol (vitamin D3) 25 mcg (1,000 unit) tablet Label Comments: Take 1 tablet by mouth once a day sennosides [Senna Lax] 8.6 mg tablet Label Comments: Take 2 tablet by mouth twice a day trazodone 50 mg tablet Label Comments: Take 1 tablet by mouth at bedtime torsemide 10 mg tablet Label Comments: Take 1 tablet by mouth once a day levothyroxine 100 mcg tablet Label Comments: Take 1 tablet by mouth once a day lorazepam 0.5 mg tablet Label Comments: 0.5 mg po q 4h prn anxiety till 04/12/2022 insulin aspart U-100 [Novolog U-100 Insulin aspart] 100 unit/mL solution Label Comments: Inject 10 unit subcutaneously three times a day Hold PRN accucheck <120 mirtazapine 30 mg tablet Label Comments: Take 1 tablet by mouth at bedtime losartan 25 mg tablet Label Comments: Take 1 tablet by mouth once a day polyethylene glycol 3350 [Miralax] 17 gram/dose powder Label Comments: Take scoop by mouth once a day oxycodone 5 mg tablet Label Comments: Take 1 tablet by mouth every eight hours as needed for pain escitalopram oxalate 10 mg tablet Label Comments: Take 1 tablet by mouth once a day insulin glargine 100 unit/mL (3 mL) insulin pen SUBCUT Label Comments: Inject 25 unit subcutaneously at bedtime Jardiance 25 mg tablet Label Comments: Take 1 tablet by mouth every morning Follow Up/Referrals: Maximo Amador MD [Staff Physician] - Stand Alone Forms: [facility] Info Instructions Procedures I/D Type: abscess Site: darryl-rectal Pre procedure diagnosis: Right buttock, abscess Post procedure diagnosis: Right buttock, abscess Written consent by: patient Site marking: site marked Verification/time out: correct patient and correct site Name of person performing procedure: Josiah Rivera Anesthesia I&D: lidocaine 1% (With epinephrine) Amount of anesthesia used (mls): 3 Technique: incised with #11 blade Amount of fluid expressed (mL): 2.0 Irrigation: Yes Packing used?: none Estimated blood loss (if any): less than 5mls Complications: pain and bleeding Conclusion: patient tolerated procedure
[2022-05-27 11:11] VITALS: BP 135/80; PULSE 82; RESP 18; TEMP 35.8; O2SAT 95; BMI 22.5
[2022-05-27 11:15] VITALS: BP 135/80; PULSE 82; RESP 16; O2SAT 97
--- OUTSIDE RECORDS SUMMARY | 2022-05-27 11:51 | XMS_ITS | Clinical Summary ---
:1945 Author Organization [facility] Address [address] [place] [address] Care Team Providers Name Role Phone Shayla Alford D.O. Primary Care Provider [phone] Source Comments Patient records contain information from all sites at [facility]. For routine questions regarding patient records, call [phone] during business hours, M-F 8:00 AM - 5:00 PM Central Time. Record requests for emergency care only can be directed to [phone] at any time.[facility] Allergies Active Allergy Reactions Severity Noted Date [...] a 1 each 0 03/02/2021 Active (FREESTYLE SOFYA) misc day. Use to scan Sofya sensor [...] to walk as needed. Community Services/County Contacts: [place] sarita cuello. 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 02/28/2022 Clinical Communication Community Internal [facility] Form Review Medicine Shayla queen ([facility] D.O. - labs ) 02/27/2022 Comprehensive [...] Asthma Brother Crow Costa Depression Brother Crow Cosat Asthma Daughter Kayli Vaughan Coronary artery disease Father Torsten Costa Depression Father Torsten Costa Heart attack Father Torsten Costa age 76 Coronary artery disease Mother Marce Costa Hypertension Mother Marce Costa Asthma Sister Vita Vela Asthma Son Relation Name Status Comments Brother Crow Julissa Daughter Kayli Thalhuber Father Torsten Julissa Mother Marce Julisas Sister Vita Vela Son Social History Tobacco [...] do you attend bahai or Never 2021 orthodoxy services? Do you [...] have completed or the highest Martin, MEd, COLORED LEATHER SETTER, CAYDEN) degree you have received? 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 Plan of Treatment Health Maintenance Due Date [...] 07/03/2021, 07/18/2020, 07/18/2020, Additional history exists Urine Albumin 10/18/2022 10/18/2021, 05/16/2021, 04/18/2021, Additional history exists [...] history exists Medical Devices Implanted Type Area Retail Property Manager Device Shelf Model / Identifier Expiration Serial [...] T ype Group Dates UCARE UCARE FOR [id number] 2019-Pre [id number] [address] [employer] SENIORS O sent -[address] [place] [address] [facility] [id number] 2007-Pr OCC CLAIMS I ndemnity ADMINISTRATION esent PROCESSING [employer] [address] [place] [address] Advance Directives For more information, please contact: [phone] Latest Code Status on File Code Status Date Activated Date Inactivated Comments Full Code 05/03/2020 5:37 PM 05/06/2020 7:12 PM Full Code: Discussed Care Teams Medical Education Specialist Relationship Specialty Start Date End Date Shayla Alford D.O. PCP - General Internal Medicine 05/22/20 [address] [place] [address]
--- OUTSIDE RECORDS SUMMARY | 2022-05-27 11:51 | XMS_ITS | Encounter Summary ---
:1945 Author Organization [facility] Address [address] [place] [address] Care Team Providers Name Role Phone Shayla Alford D.O. Primary Care Provider [phone] Encounter Details Date Type Department Care Team Description 03/27/2022 Clinical Communication Department of Neurology Mari Lala, in [place] [facility] cameron Whyte, M.P.H. [address] [place] [address] [address] [place] [phone] Social History Tobacco Use Types Packs/Day [...] do you attend jainism or Never 2021 synagogue services? Do you [...] have completed or the highest Martin, MEd, EXCELLENCE CONSULTANT, CAYDEN) degree you have received? Sex [...] 87 days after being in hospital in [place]. Today is the 87 th day. Need [...] documented as of this encounter Care Teams Curtain Roller Assembler Relationship Specialty Start Date End Date Shayla Alford D.O. PCP - General Internal Medicine 05/22/[address] [address] documented as of this encounter
--- OUTSIDE RECORDS SUMMARY | 2022-05-27 11:51 | XMS_ITS | Encounter Summary ---
:1945 Author Organization [facility] Address [address] [place] [address] Care Team Providers Name Role Phone Shayla Alford D.O. Primary Care Provider [phone] Reason for Visit Reason Comments Stroke Ref. Dr. Page Appointment Request (Routine) - Closed Specialty Diagnoses / Procedures Referred By Contact Refer red To Contact Neurology Diagnoses Infarction Cerebral (HCC) Dakotah Page M.D. [facility] Procedures Consult [address] [place], [place] [address] Referral ID Status Reason Start Date Expiration Date Visits Requ ested Visits Authorized [id number] Closed 01/11/2022 07/10/2022 1 1 Encounter Details Date Type Department Care Team Description 02/27/2022 Comprehensive Visit Department of Mari Lala Stroke (HCC) (Primary Dx); Neurology in [place], Hemianopsia Jonathan onymous Right [place], [place] M.P.H. [address] [facility] [address] [place], [place] [phone] [address] Social History Tobacco Use Types Packs/Day [...] do you attend baptism or Never 2021 voodoo services? Do you belong to any clubs or No 10/09/2021 organizations such as baptism groups, unions, fraMyWants or athletic groups, or school groups? How [...] have completed or the highest Martin, MEd, PHOTOCOMPOSING MACHINE OPERATOR, CAYDEN) degree you have received? [...] Body Mass Index 26.8 10/09/2021 3:28 PM JOURNAL ENTRY AUDIT CLERK documented in this encounter Consult Notes Mari Lala M.D., M.P.H. - 02/27/2022 2:30 PM CDT SUBJECTIVE CHIEF COMPLAINT / REASON FOR VISIT Beth Costa is a 76 y.o. male who presents for evaluation of Stroke (Ref. Dr. Page). HISTORY OF PRESENT ILLNESS Patient had evanescent right-sided motor weakness when he was on vacation in [facility] on 12/23/2021. These resolved and the left. The symptoms then recurred a shortly thereafter and he was readmitted to [facility] and the right-sided weakness of the arm [...] that the patient was discharged yesterday from [facility] after having a TIA and completely recovering. His states that the patient was getting out of the car this morning around 1100 when the patient had right sided weakness and slower speech. He was admitted yesterday for his TIA for right sided weakness. His heart rate was noted to be in the 30's per manager market development. The patient denies chest pain, shortnessof breath [...] By: Dhiraj Ospina MD 12/24/2021 8:09 [place] [address] Transthoracic Echocardiogram Report Name: BETH COSTA Study Date: 12/24/2021 Performing Location: [facility] : 1945 Gender: Male Height: 72 in [...] (HCC) 10/16/2009 Pulmonary symptomatology, diagnosis at the [place] unclear, [...] 08/28/[address] Prasanna Bernal at the [facility]. ??? TONSILLECTOMY ??? TONSILLECTOMY 1967 ??? [...] Disp: , Rfl: ??? PEN NEEDLE, DIABETIC [facility], Yani Fine 30 disposable needles. For use [...] , Rfl: ??? SYRINGE-NEEDLE,INSULIN,0.5 ML (INSULIN SYRINGE [facility]), , Disp: , Rfl: ??? torsemide (DEMADEX) [...] ??? flash glucose scanning reader (FREESTYLE SOFYA) [facility], 1 each 5 (five) times a [...] Master's degree (e.g., MA, MS, Martin, MEd, PHOTOCOMPOSING MACHINE OPERATOR, CAYDEN) Occupational History Employer: RETIRED Tobacco Use [...] and Family: Once a week ??? Attends Adventism Services: Never ??? Active Member of Clubs [...] Alert and oriented x 4. CRANIAL NERVES: security auditor II-XII has a right beverly facial weakness [...] PLAN Impression: Encounter Diagnoses Name Primary? Stroke ([facility]) Yes ??? Hemianopsia Homonymous Right [...] as of this encounter Care Teams Processing Inspector Relationship Specialty Start Date End Date Shayla Alford D.O. PCP - General Internal Medicine 05/22/20 [address], [place] [address] documented as of this encounter
--- OUTSIDE RECORDS SUMMARY | 2022-05-27 11:51 | XMS_ITS | Encounter Summary ---
:1945 Author Organization [facility] Address [address] [place] [address] Care Team Providers Name Role Phone Shayla Alford D.O. Primary Care Provider Reason for Visit Reason Comments Appointment Encounter Details Date Type Department Care Team Description 01/31/2022 Clinical Communication Department of Urology Lea Morin, Appointment in [facility] R.N. [address] [place] [address] [place], [place] [phone] Social History Tobacco Use Types Packs/Day Years [...] do you attend mandaeism or Never 2021 yazidi services? Do you [...] completed or the highest Martin, MEd, DENTAL TECHNICIAN METAL, CAYDEN) degree you have received? Sex Assigned at Date Recorded Male 05/21/2018 2:34 PM CDT documented as of this encounter Miscellaneous Notes Telephone Encounter - Jimena Copeland R.N. - 02/04/2022 4:31 PM CDT Patient scheduled for follow-up on 03/04/22 per patients Diallo. Telephone Encounter - Lea Morin R.N. - 02/04/2022 10:14 AM CDT Left message for living facility nurse electronics commodity manager, Viri, following up with last week to inquire about care conference, non transit proof machine operator cytology urine test if resulted to fax [...] R.N. - 01/31/2022 10:06 AM CDT [facility] nurse electronics commodity manager, Viri, called urology to confirm urology appointment andto inform team that patient is currently in rehab at the facility but is total care and total lift. Patient does not have a catheter but Viri is willing to collect urine for non transit proof machine operator cytology. Viri further mentions again patient is total care, total lift and inquired about priority in care for patient as she's unsure if she'd be able to arrange transportation. With discussion, likelihood of patientstaying alf at halfway, massive stroke who is total care and total lift and not sure howwell he'll tolerate transportation or clinic visit. Care conference at halfway with staff and patient's is today, 01/31/22, in which Viri is asked to inform urology if any discussion about plan of care, in particular to clinic urology visits, bladder cancer. Patient is due for 3 month bladder cancer surveillance, which was scheduled 02/11/22 and cancelled due to patient's current situation and Dr. Bernal not being in clinic that day. Non transit proof machine operator cytology urine order faxed to [facility] for Viri to collect urine and will fax back to [facility]. Will also inform Dr. Bernal of patient's change in health and advise if anything further needs. documented in this encounter Plan of Treatment Not on filedocumented as of this encounter Visit Diagnoses Not on filedocumented in this encounter Additional Health Concerns Assessment Noted Time PHQ-9 Depression Total Score: 18 04/28/2018 11:27 AM C DT documented as of this encounter Care Teams Fire Alarm Operator Relationship Specialty Start Date End Date Shayla Alford D.O. PCP - General Internal Medicine 05/22/20 [address] [place] [phone] documented as of this encounter
--- OUTSIDE RECORDS SUMMARY | 2022-05-27 11:51 | XMS_ITS | Clinical Summary ---
:1945 Author Organization [facility] [place] [address] Care Team Providers Name Role Phone Shayla Alford DO Primary Care Provider [phone] Allergies Active Allergy Reactions Severity Noted Date Comments Amlodipine Dizziness Medium 06/22/2018 Reports juanito hernandez dizziness. Was told by a [facility] provider t o never take again. Sulfamethoxazole-Trimethopri Edema 06/09/2014 m Doxycycline Rash 11/08/2015 Gadobutrol GI Upset 05/16/2020 Penicillins Hives High 09/20/2011 Sulfa (Sulfonamide Anaphylaxis High 05/16/2020 Antibiotics) Liraglutide GI Upset 05/16/2020 Medications Medication Sig Dispensed Refills Start Date End Date Status clopidogrel (PLAVIX) Take 75 mg by 0 Active 75 mg tablet mouth once daily in the afternoon. insulin aspart Inject 10-30 Units 0 Active (NOVOLOG) 100 unit/mL subcutaneous 3 injectionIndications: times daily with type 2 diabetes meals. mellitus Indications: type 2 diabetes mellitus albuterol HFA 90 Inhale 2 Puffs by 0 Active mcg/actuation inhaler mouth 4 times daily if needed. escitalopram oxalate Take 1 tablet by 30 tablet 0 04/22/2018 Active (LEXAPRO) 10 mg mouth once daily. tabletIndications: Anxiety and depression cholecalciferol Take 1,000 units 0 Active (VITAMIN D3) 1,000 by mouth once unit tablet daily in the afternoon. atorvastatin Take 1 tablet by 30 tablet 0 04/30/2020 Active (LIPITOR) 80 mg mouth at bedtime. tabletIndications: Indications: hyperlipidemia excessive fat in the blood metoprolol succinate Take 1 tablet by 30 tablet 0 04/30/2020 Active (TOPROL XL) 50 mg mouth once daily. sustained-release tabletIndications: Elevated troponin Levothyroxine 100 mcg Take 100 mcg by 0 01/02/2021 Active cap mouth once daily. insulin glargine Inject 30 units 10 mL 0 01/05/2021 Active (Lantus U-100 subcutaneous Insulin) 100 unit/mL before bedtime. injectionIndications: type 2 diabetes mellitus traZODone (DESYREL) Take 50 mg by 0 01/05/2021 Active 100 mg tablet mouth at bedtime. budesonide-formoteroL Inhale 2 Puffs by 0 06/30/2020 Active (SYMBICORT) 160-4.5 mouth once daily mcg/actuation if needed. (160-4.5 mcg each actuation) inhaler empagliflozin Take 25 mg by 0 05/15/2021 A ctive (JARDIANCE) 25 mg mouth once daily. tablet torsemide (DEMADEX) Take 40 mg by 0 02/22/202110/09 Active 20 mg tablet mouth once daily. dulaglutide Inject 0.75 mg 0 11/06/2021 Ac tive (Trulicity) 0.75 subcutaneous. mg/0.5 mL subcutaneous pen semaglutide (Ozempic) Initial, 0.25 mg 0 11/20/2021 Active 2 mg/1.5 mL (0.25mg subQ once weekly or 0.5mg doses) pen for 4 weeks, then increase to 0.5 mg once weekly for 4 weeks, then 1mg weekly for 3 months Active Problems Patient Care Coordination Note Formatting of this note might be differe nt from the original. Family is what matters most to JONNATHAN. JONNATHAN would like his care team to know: he likes to keep busy - writing, [employer]. What are JONNATHAN's challenges, stressors, or barriers? fatigue Problem Noted Date Bilateral pleural effusion 05/17/2020 Coronary arteriosclerosis 04/30/2020 Diabetic peripheral neuropathy 04/29/2020 Chronic renal disease, stage III 04/29/2020 Mixed hyperlipidemia 04/29/2020 Carcinoma of bladder 04/28/2020 Diabetic retinopathy 04/28/2020 Acute on chronic diastolic CHF (congestive heart failu re) 04/28/2020 Elevated troponin level 04/28/2020 HAWA (acute kidney injury) 04/28/2020 Fall, accidental 04/28/2020 Elevated lactic acid level 04/28/2020 History of falling 03/15/2020 Relapsing pancreatitis 05/12/2018 Gout, unspecified 09/20/2011 HTN (hypertension) 09/20/2011 Benign prostatic hyperplasia with urinary obstruction 09/20/2011 Essential hypertension 09/20/2011 Overview: Overview: Hypertension Obstructive sleep apnea syndrome 05/23/2011 Hyperlipidemia 04/19/2011 Chronic cough 12/31/2010 Type II diabetes mellitus with complication (HC) on in sulin 08/24/2008 Encounters Date Type Specialty Care Team Description 05/14/2022 Lab Requisition Natasha Coles, SECTIONIZER 05/07/2022 Hospital Encounter Cody Lala, Ren Granados, PT 05/07/2022 Travel 05/01/2022 Hospital Encounter Angeles Reid, PT 05/01/2022 Travel 04/26/2022 Hospital Encounter Cody Lala MD Thomas, Cameron, PT 04/26/2022 Travel 04/12/2022 Hospital Encounter Cody Lala MD Encounter for person Ren Richard, PT [facility] 04/12/2022 Travel 03/29/2022 Transcribe Orders Cody Lala MD 03/26/2022 Transcribe Orders Cody Lala MD 02/26/2022 Lab Requisition Unknown, Doctor from Last 3 Months Immunizations Name Administration Dates Next Due COVID-19 vaccine (Moderna 11/15/2020, 10/18/2020 100mcg/0.5mL) PFMDV DTaP 01/31/2015 Hepatitis A (Adult) 11/15/2008 Inactivated Polio Vaccine 11/15/2008 Influenza A (H1N1), Inactivated 10/13/2009 Influenza Virus, Unspecified 07/18/2020, 06/14/2019, 017, 07/12/2016, 07/28/2015, 08/02/2014, 07/07/2013, 07/13/2010, 07/30/2006 Influenza, High-dose Inactivated 07/13/2019, 06/18/2017, Influenza, IIV3 (Age >=3 years) 07/28/2015 Influenza, IIV4 07/18/2020 Pneumococcal Poly,23-Valent 11/15/2008, 11/14/1998 (Pneumovax) Pneumococcal conj 13-Valent (Prevnar 08/11/2015, 01/31/2015 13) Pneumococcal, Unspecified 02/04/2013, 09/10/2007 TD, UNSPECIFIED 03/17/2007 Td (Age >=7 Years) 01/14/2009, 08/29/2004 Td, Preservative Free (age >= 7 01/14/2009 Years) Tdap 01/31/2015, 01/27/2014 Typhoid, Unspecified 11/15/2008 Yellow Fever 11/15/2008 Zoster (Shingrix-RZV, recombinant) 08/22/2020, 06/13/2020 Zoster (Zostavax-ZVL, live) 08/27/2012, 07/13/2012 Zoster, Unspecified Formulation 08/22/2020 Family History Medical History Relation Name Comments Asthma Brother Depression Brother Depression Father Heart attack Father Hypertension Mother Asthma Sister Asthma Son Relation Name Status Comments Brother Alive Father Mother Sister Alive Son Alive Social History Tobacco Use Types Packs/Day Years Used Date Former Smoker Quit: 08/28/19 74 Smokeless Tobacco: Never Used Alcohol Use Standard Drinks/Week Comments Yes 0 (1 standard drink = 0.6 oz pure alcoho l) 1 per month Alcohol Habits Answer Date Recorded How often do you have a drink containing alcohol? Not asked How many drinks containing alcohol do you have on a typical Not asked day when you are drinking? How often do you have six or more drinks on one occasion? No t asked Comment: 1 per month 11/14/2021 Sex Assigned at Date Recorded Not on file COVID-19 Exposure Response Date Recorded In the last 10 days, have you been in contact with No / Unsu re 05/07/2022 9:02 AM CDT someone who was confirmed or suspected to have Coronavirus/COVID-19? Obstetrics History Last Filed Vital Signs Vital Sign Reading Time Taken Comments Blood Pressure 131/68 11/14/2021 11:00 AM KENNEL HELPER Pulse 52 11/14/2021 11:00 AM KENNEL HELPER Temperature 36.4 ??C (97.5 ??F) 11/14/2021 9:30 AM KENNEL HELPER Respiratory Rate 18 11/14/2021 11:00 AM KENNEL HELPER Oxygen Saturation 99% 11/14/2021 11:00 AM KENNEL HELPER Inhaled Oxygen Concentration - - Weight 97.3 kg (214 lb 8.1 oz) 11/21/2021 2:42 PM KENNEL HELPER Height 184.9 cm (6' 0.8) 11/21/2021 2:42 PM KENNEL HELPER Body Mass Index 28.46 11/21/2021 2:42 PM KENNEL HELPER Plan of Treatment Health Maintenance Due Date Last Done Comments Hepatitis C screening for age 1007/06/1963 18-79 Medicare Wellness for age 65+ 2008 BMI (ht and wt on same day) for 05/14/2017 05/14/2016 age 18+ Depression screening for age 12+ 01/05/2022 01/05/2021, 04/2021, 01/03/2021, Additional history exists Influenza for age 65+ 05/30/2022 07/18/2020, 07/18/2020, 07/13/2019, Additional history exists COVID-19 vaccine series (5 - 06/16/2022 02/13/2022, 021, Booster for Moderna series) 11/15/2020, Addition al history exists Tetanus booster 01/31/2025 01/31/2015, 01/27/2014, 01/14/2009, Additional history exists Tdap Completed 01/31/2015, 01/27/2014 Pneumococcal series for age 65+ Completed 08/11/2015, 0501/2015, 02/04/2013, Additional history exists Zoster (shingles) series for age Completed 08/22/2020, , 50+ 08/27/2012, Additional history exists Procedures Procedure Name Priority Date/Time Associated Diagnosis Comme nts BASIC METABOLIC Routine 05/21/2022 7:38 AM Result s for this PANEL CDT procedure are i n the results section. LAB TRACKING EVENT Routine 02/26/2022 11:27 AM CDT PATH URINE CYTOLOGY Routine 02/26/2022 11:27 AM R esults for this CDT procedure are i n the results section. from Last 3 Months Results (ABNORMAL) BASIC METABOLIC PANEL (05/21/2022 7:38 AM CDT) [facility] gist Method Time Signature SODIUM 142 135 - 145 05/21/2022 [place] mmol/L 10:14 AM [facility] POTASSIUM 4.5 3.5 - 5.0 05/21/2022 [place] mmol/L 10:14 AM [facility] CHLORIDE 109 98 - 110 05/21/2022 [place] mmol/L 10:14 AM [facility] CO2,TOTAL 23 21 - 31 05/21/2022 [place] mmol/L 10:14 AM [facility] ANION GAP 10 5 - 18 05/21/2022 [place] 10:14 AM [facility] GLUCOSE 92 65 - 100 05/21/2022 [place] mg/dL 10:14 AM [facility] CALCIUM 9.0 8.5 - 10.5 05/21/2022 [place] mg/dL 10:14 AM [facility] BUN 25 8 - 25 05/21/2022 [place] mg/dL 10:14 AM [facility] CREATININE 1.30 (H) 0.72 - 05/21/2022 [facility] 1.25 mg/dL 10:14 AM [facility] BUN/CREAT RATIO 19 10 - 20 05/21/2022 [facility] 10:14 AM [facility] eGFR 56 (L) >90 05/21/2022 [place] mL/min/1.7 10:14 AM [facility] 3m2 LABORATORY Comment: As of 2021, eGFR is calcu lated by the CKD-EPI creatinine equation without race adjustment. eGFR can be inf luenced by muscle mass, exercise, and diet. The reported eGFR is an estimation only and is only applicable if the renal function is stable. Specimen Anatomical Collection Method / Collection Time Recei pee Time (Source) Location / Volume Laterality Blood BLOOD SPECIMEN / Venipuncture / 05/21/2022 7:38 2021 9:33 Unknown Unknown AM T AM CDT Natasha Coles NP CHEMISTRY Performing Organization Address City/State/ZIP Code Phon e Number [facility] [address] [place] [address] LAB TRACKING EVENT (02/26/2022 11:27 AM CDT) Specimen Anatomical Collection Method Collection Time Receive d Time (Source) Location / / Volume Laterality Other (Other) Client Collect / 02/26/2022 11:27 2021 Unknown AM CDT 11:21 PM CDT Doctor Unknown LAB BILL ONLY Performing Organization Address City/State/ZIP Code Phon e Number [facility] [address] [place] [address] LABORATORY-CENTRAL 2000 LABORATORY PATH URINE CYTOLOGY (02/26/2022 11:27 AM CDT) Component Value Ref Test Analysis Performed At [facility] gist Range Method Time Signature Case Report Medical Cytology Report ? Case: [id number] ? 02/27/2022 [facility] Authorizing Provider: ??Unkn own, Doctor ?Collected: ? 02/26/2022 1127 ? 5:35 PM HEAL TH Ordering Location: ? [facility] C[facility] ?Received: ?02/27/2022 0833 ? CDT NIKOLAS DOZIER Pathologist: ? Lea Peralta MD ? ENTRAL Specimen: ?Urine ? LABORATORY Final A) URINE FOR CYTOLOGY: 02/27/2022 [facility] Electronically Diagnosis 1. Negative for high grade urothelial carcinoma 5:35 PM HEALTH signed by 2. Acute inflammation present CDT LABORATORY-C Lea Peralta ENTRAL MD on 2021 LABORATORY at 5:35 P M Comment A) According to 02/27/2022 [facility] system 5:35 PM HEALTH of reporting CDT LABORATORY-C urinary tract ENTRAL cytology, the LABORATORY diagnosis of negative for high grade urothelial carcinoma indicates the sample is composed of benign urothelial cells and that cells that could remotely raise the suspicion of high grade urothelial carcinoma are absent. This does not and cannot exclude the possibility of a low grade urothelial neoplasm. Clinical The patient is a 02/27/2022 [facility] 76 y.o. male 5:35 PM HEALTH with a history CDT LABORATORY-C of bladder ENTRAL cancer. LABORATORY Gross 02/27/2022 [facility] Description A) SOURCE: Urine 5:35 PM HEALTH CDT LABORATORY-C The specimen consists of 70 cc of yellow hazy fluid from which the following is prepared: ENTRAL ? -1 Papanicolaou stained ThinPrep slide LABORATORY Microscopic All slides were reviewed microscopically. 02/27/2022 [facility] Description 5:35 PM HEALTH Specimen adequacy: Adequate for interpretation. CDT LABORATORY-C ENTRAL The microscopic appearance substantiates the diagnosis. LABORATORY Additional Cytology is screened at [facility], Central Laboratory - [address], [place] [address] and [facility] - [address] [place] [address] and 02/27/2022 [facility] - [address] [place] [address] 5:35 PM HEALTH CDT LABORATORY-C ENTRAL Interpreted at [facility], Central Laboratory - [address], [place] [address] LABORATORY Specimen Anatomical Collection Method Collection Time Receive d Time (Source) Location / / Volume Laterality Urine URINE SPECIMEN / 02/26/2022 11:27 022 8:33 Unknown AM CDT AM CDT Doctor Unknown PATHOLOGY/CYTOLOGY Performing Organization Address City/State/ZIP Code Phon e Number [facility] [address] [place] [address] LABORATORY-CENTRAL [address] LABORATORY from Last 3 Months Insurance Payer Benefit Plan / Subscriber ID Effective Dates Phone Addre ss Type Group MEDICARE PART A MEDICARE PART A [id number] 2008-Presen ATTN: CLAIMS - HB USE ONLY HB ONLY t [address] [place] [address] [employer] [place] MEDICARE [id number] Effective for [address] [place] [address] [employer] [place] MEDICARE [id number] 2021-Present [address] [place] [address] Jonnathan Costa Personal/Family Self [phone] (Home) [place] [id number] Advance Directives Latest Code Status on File Code Status Date Activated Date Inactivated Comments Full Code 11/14/2021 7:10 AM 11/14/2021 1:58 PM Code Status Discussion: Unable to Assess Preferences, Provid er to review later Full Code 07/18/2021 8:05 AM 07/18/2021 4:11 PM Code Status Discussion: Not Discussed Full Code 05/16/2020 8:04 PM 05/18/2020 5:02 PM Code Status Discussion: Not Discussed Per Existing Order Full Code 04/28/2020 6:25 PM 04/30/2020 1:50 PM Code Status Discussion: Discussed Full Code 08/28/2016 6:07 AM 08/28/2016 2:31 PM Care Teams Qualitative Researcher Relationship Specialty Start Date End Date Shayla Alford DO PCP - General Internal Medicine 12/18/[address] [phone]
--- OUTSIDE RECORDS SUMMARY | 2022-05-27 11:51 | XMS_ITS | Encounter Summary ---
:1945 Author Organization [facility] Address [address] [place] [address] Care Team Providers Name Role Phone Shayla Alford D.O. Primary Care Provider [phone] Encounter Details Date Type Department Care Team Description 12/26/2021 Orders Only Department of Internal [place] Medicine in [place], [place].Jason Wade [place] [address] [place] [phone] (Wo rk) Social History Tobacco Use Types [...] do you attend pentecostalism or Never 2021 zoroastrianism services? Do you [...] have completed or the highest Martin, MEd, WASHER CARCASS, CAYDEN) degree you have received? Sex Assigned at Date Recorded Male 05/21/2018 2:34 PM CDT documented as of this encounter Plan of Treatment Not on filedocumented as of this encounter Visit Diagnoses Not on filedocumented in this encounter Additional Health Concerns Assessment Noted Time PHQ-9 Depression Total Score: 18 04/28/2018 11:27 AM C DT documented as of this encounter Care Teams Spring Winder Relationship Specialty Start Date End Date Shayla Alford D.O. PCP - General Internal Medicine 05/22/[address] [phone] documented as of this encounter
--- OUTSIDE RECORDS SUMMARY | 2022-05-27 11:51 | XMS_ITS | Encounter Summary ---
:1945 Author Organization [facility] Address [address] [place] [address] Care Team Providers Name Role Phone Shayla Alford D.O. Primary Care Provider [phone] Encounter Details Date Type Department Care Team Description 12/24/2021 Clinical Communication Department of Internal [facility] Dejes[facility] Medicine in [place], [place], [place].O Mauro [place] [address] [place] [phone] Social History Tobacco Use Types Packs/Day Years [...] do you attend synagogue or Never 2021 hindu services? Do you [...] completed or the highest Martin, MEd, DIRECTOR GAME, CAYDEN) degree you have received? Sex Assigned [...] as plan patient will be discharged from [facility] later this afternoon. I informed her that any medication changes or adjustments can be addressed at [facility] appointment on 12/27 and the hospital team will prescribe any medications that may be necessary prior to that appointment. I discussed with Diallo that she can discussneurology follow up at [facility] appointment as well. I did offer [...] nursing clinical judgement Telephone Encounter - Varsha Bhatia - 12/24/2021 10:50 AM CDT Reason for Communication: Pt's calling in. She reported pt is currently in hospital in [place]. Said pt had video consult with [facility] neurologist last night (12/24) and was told he had a TIA stroke. reports pt feeling fine now and will discharge today. Pt's is wondering about a potential increase or change in meds to prevent this from happening again. She said she is also wondering if pt should have consult with [place] neurologist as well. Pt's would like a call today (12/25), so she can pass on any information from PCP to [facility]. Post hospital FU scheduled with PCP on [...] documented as of this encounter Care Teams Cytopathologist Relationship Specialty Start Date End Date Shayla Alford D.O. PCP - General Internal Medicine 05/22/20 [address] [place] [phone] documented as of this encounter
--- OUTSIDE RECORDS SUMMARY | 2022-05-27 11:51 | XMS_ITS | Encounter Summary ---
:1945 Author Organization [facility] Address [address] [place] [address] Care Team Providers Name Role Phone Shayla Alford D.O. Primary Care Provider [phone] Encounter Details Date Type Department Care Team Description 11/30/2021 Clinical Communication Department of Internal Andrei Dejesus Medicine in [place], [place], [place].O Mauro [place] [address] [place] [phone] Social History Tobacco Use Types Packs/Day Years [...] you attend latter day or Never 2021 judaism services? Do you [...] have completed or the highest Martin, MEd, SHOP WORKER, CAYDEN) degree you have received? Sex [...] to remove from Snap[employer], patient removed from [place]. ISITIONS LIBRARIAN documented in this encounter Plan of Treatment Not on filedocumented as of this encounter Visit Diagnoses Not on filedocumented in this encounter Additional Health Concerns Infection Onset Date Last Indicated Resolved Time COVID19 Pending 11/29/2021 11/29/2021 12/19/2021 5:54 AM CDT Assessment Noted Time PHQ-9 Depression Total Score: 18 04/28/2018 11:27 AM C DT documented as of this encounter Care Teams Copy Editor Relationship Specialty Start Date End Date Shayla Alford D.O. PCP - General Internal Medicine 05/22/[address] [phone] documented as of this encounter
--- OUTSIDE RECORDS SUMMARY | 2022-05-27 11:51 | XMS_ITS | Encounter Summary ---
:1945 Author Organization [facility] Address [address] [place] [address] Care Team Providers Name Role Phone Shayla Alford D.O. Primary Care Provider [phone] Reason for Visit Appointment Request (Routine) - Closed Specialty Diagnoses / Procedures Referred By Contact Refer red To Contact Community Internal Medicine Referral ID Status Reason Start Date Expiration Date Visits Requ ested Visits Authorized [id number] Closed 12/26/2021 12/26/2022 1 1 Encounter Details Date Type Department Care Team Description 12/26/2021 Virtual Visit Department of Internal [place], Stroke (HCC) (Primary Medicine in Shayla Dixon D.O . Dx) [place] [address] [place] [phone] Social History Tobacco Use Types Packs/Day [...] do you attend jew or Never 2021 pentecostal services? Do you belong to any clubs or No 10/09/2021 organizations such as jew groups, unions, [employer] or athletic groups, or school groups? How [...] have completed or the highest Martin, MEd, BONE CRUSHER, CAYDEN) degree you have received? Sex Assigned at Date Recorded Male 05/21/2018 2:34 PM CDT documented as of this encounter Progress Notes Shayla Alford D.O. - 12/26/2021 2:00 PM CDT Patient has sustained a stroke and is in [facility] undergoing treatment. I did speak to his [...] documented as of this encounter Care Teams Location Worker Relationship Specialty Start Date End Date Shayla Alford D.O. PCP - General Internal Medicine 05/22/[address] [phone] documented as of this encounter
--- OUTSIDE RECORDS SUMMARY | 2022-05-27 11:51 | XMS_ITS | Encounter Summary ---
:1945 Author Organization [facility] Address [address] [place] [address] Care Team Providers Name Role Phone Shayla Alford D.O. Primary Care Provider [phone] Encounter Details Date Type Department Care Team Description 01/10/2022 Clinical Communication Department of Internal Andrei Dejesus Medicine in [place], [place], [place].O Mauro [place] [address] [place] [phone] Social History Tobacco Use Types Packs/Day Years [...] do you attend yazidi or Never 2021 zoroastrianism services? Do you [...] have completed or the highest Martin, MEd, CAR LOADER, CAYDEN) degree you have received? Sex Assigned at Date Recorded Male 05/21/2018 2:34 PM CDT documented as of this encounter Miscellaneous Notes Telephone Encounter - Yari Monsalve - 01/11/2022 3:19 PM CDT Lauern at [facility] was notified that the referral for neurology is in the patients chart under Document viewer. Lauren would like a call back to have the appointment scheduled once the doctor has time to review it.. Telephone Encounter - Kira Sorenson - 01/11/2022 2:23 PM CDT Riana from [facility] returning call, or [phone] Telephone Encounter - Shanon Glover - 01/11/2022 8:15 AM CDT Staff is calling in and would like a nurse to call her back, to let her know if the fax was received. She also stated that you could call the clinical coordinator , Viri at [phone]. Please advise. Telephone Encounter - Faina Deleon [...] as of this encounter Care Teams Head Bone Grinder Relationship Specialty Start Date End Date Shayla Alford D.O. PCP - General Internal Medicine 05/22/[address] [place] [phone] documented as of this encounter
--- OUTSIDE RECORDS SUMMARY | 2022-05-27 11:51 | XMS_ITS | Encounter Summary ---
:1945 Author Organization [facility] Address [address] [place] [address] Care Team Providers Name Role Phone Shayla Alford D.O. Primary Care Provider [phone] Reason for Visit Reason Comments canceled colonoscopy Encounter Details Date Type Department Care Team Description 01/01/2022 Clinical Communication [facility] General Surgery in P, M.DMauro colonoscopy [place], [place] [address] [place] [address] Social History Tobacco Use [...] do you attend jewish or Never 2021 congregational services? Do you [...] have completed or the highest Martin, MEd, VENDING ROUTE DRIVER, CAYDEN) degree you have received? Sex [...] to remove from [employer], patient removed from [place]. documented in this encounter Plan of Treatment Not on filedocumented as of this encounter Visit Diagnoses Not on filedocumented in this encounter Additional Health Concerns Assessment Noted Time PHQ-9 Depression Total Score: 18 04/28/2018 11:27 AM C DT documented as of this encounter Care Teams Lodge Attendant Relationship Specialty Start Date End Date Shayla Alford D.O. PCP - General Internal Medicine 05/22/[address] [address] documented as of this encounter
--- OUTSIDE RECORDS SUMMARY | 2022-05-27 11:51 | XMS_ITS ---
:1945 Author Organization [facility] Address [address] [place] [address] Care Team Providers Name Role Phone Shayla Alford D.O. Primary Care Provider [phone] Active Problems Patient Care Coordination Note Formatting [...] to walk as needed. Community Services/County Contacts: [place] s erkym. 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 Treatments may have been administered in another system.
--- OUTSIDE RECORDS SUMMARY | 2022-05-27 11:51 | XMS_ITS | Encounter Summary ---
:1945 Author Organization [facility] Address [address] [place] [address] Care Team Providers Name Role Phone Shayla Alford D.O. Primary Care Provider [phone] Reason for Visit Reason Comments Form Review [facility] Encounter Details Date Type Department Care Team Description 02/28/2022 Clinical Communication Department of Alexys marin Review Internal Medicine Shayla queen ([facility] in [place], D.O. - labs ) [place] [address] [place] [address] Social History Tobacco Use [...] do you attend jainism or Never 2021 druze services? Do you [...] have completed or the highest Martin, MEd, AUTOMOTIVE SHOP FOREMAN, CAYDEN) degree you have received? Sex Assigned at Date Recorded Male 05/21/2018 2:34 PM CDT documented as of this encounter Miscellaneous Notes Telephone Encounter - Vanesa Lee - 03/04/2022 8:40 AM CDT Form completed by the provider. Faxed back and sent to scanning. Telephone Encounter - Vanesa Lee - 02/28/2022 2:45 PM CDT Form emailed to Dr. Franklin Dejesus for review/signature BREWMASTER: Ugo Blanco PHONE NUMBER: [phone] INFO REQUESTED: Labs INSTRUCTIONS: Fax back to [phone] documented in this encounter Plan of Treatment Not on filedocumented as of this encounter Visit Diagnoses Not on filedocumented in this encounter Additional Health Concerns Assessment Noted Time PHQ-9 Depression Total Score: 18 04/28/2018 11:27 AM C DT documented as of this encounter Care Teams Research Intern Relationship Specialty Start Date End Date Shayla Alford D.O. PCP - General Internal Medicine 05/22/[address] [address] documented as of this encounter
--- OUTSIDE RECORDS SUMMARY | 2022-05-27 11:51 | XMS_ITS | Encounter Summary ---
:1945 Author Organization [facility] Address [address] [place] [address] Care Team Providers Name Role Phone Shayla Alford D.O. Primary Care Provider [phone] Reason for Referral Physical Therapy (Routine) - Authorized Specialty Diagnoses / Procedures Referred By Contact Refer red To Contact Diagnoses Stroke (HCC) Mari Lala M.D., External, Referring M.P.H. Provider [address] [place] [address] Referral ID Status Reason Start Expiration Visits Visits Date Date Requested Authorized [id number] Authorized Service not 03/25/2022 03/25/2023 1 1 available in [facility] Encounter Details Date Type Department Care Team Description 03/19/2022 Clinical Communication Department of Sleep Mari Lala, Medicine in [place], M.P .H. [place] [address] [place], [place] [address] [phone] Social History Tobacco Use Types Packs/Day Years [...] do you attend christian or Never 2021 synagogue services? Do you [...] have completed or the highest Martin, MEd, SECURITY INCIDENT HANDLER, CAYDEN) degree you have received? Sex [...] Referral to go to Ruchi Roberto in [place]. Telephone Encounter - Mamta Olivares - 03/19/2022 1:27 PM CDT Reason for Communication: Patients is calling he has had a stroke and is in [facility] and the PT department there are discontinuing his PT because they feel they have gotten him as far as they can. They would like to have him evaluated and physical therapy at [facility] to see ifadditional progress can be made. [...] documented as of this encounter Care Teams Veteran Appeals Reviewer Relationship Specialty Start Date End Date Shayla Alford D.O. PCP - General Internal Medicine 05/22/20 [address], [place] [address] documented as of this encounter
--- OUTSIDE RECORDS SUMMARY | 2022-05-27 11:51 | XMS_ITS | Encounter Summary ---
:[address] [facility] Address [address] [place] [address] Care Team Providers Name Role Phone Shayla Alford D.O. Primary Care Provider [phone] Encounter Details Date Type Department Care Team Description 02/04/2022 Clinical Communication Department of Urology Prasanna Bernal in [place], [place] M.D. [address] [place] [address] [place], [place] [phone] Social History Tobacco Use Types Packs/Day [...] do you attend caodaism or Never 2021 adventist services? Do you [...] have completed or the highest Martin, MEd, CARE NURSE RN, CAYDEN) degree you have received? Sex [...] as of this encounter Care Teams Tire Buster Relationship Specialty Start Date End Date Shayla Alford D.O. PCP - General Internal Medicine 05/22/[address] [address] documented as of this encounter
--- OUTSIDE RECORDS SUMMARY | 2022-05-27 11:51 | XMS_ITS | Encounter Summary ---
:1945 Author Organization [facility] Address [address] [place] [address] Care Team Providers Name Role Phone Shayla Alford D.O. Primary Care Provider [phone] Encounter Details Date Type Department Care Team Description 03/12/2022 Clinical Communication Department of Sleep Mari Lala, Medicine in [place], M.P .H. [place] [address] [place], [place] [phone] Social History Tobacco Use Types Packs/Day [...] do you attend anglican or Never 2021 yazidi services? Do you [...] completed or the highest Martin, MEd, GARMENT TAG STRINGER, CAYDEN) degree you have received? Sex Assigned [...] CDT Reason for Communication: Nghia calling from [facility], Dr. Amador is wondering if heshould discontinue ASA med.. Patient is currently taking Plavix. Wondering if they can discontinue taking aspirin. Call ALLEY Meredith at Current or [phone] Can Nursing/Provider leave a detailed message?: yes [...] as of this encounter Care Teams Director Group Sales Relationship Specialty Start Date End Date Shayla Alford D.O. PCP - General Internal Medicine 05/22/[address] [phone] documented as of this encounter
--- OUTSIDE RECORDS SUMMARY | 2022-05-27 11:51 | XMS_ITS | Encounter Summary ---
:[address] [facility] Address [address] [place] [address] Care Team Providers Name Role Phone Shayla Alford D.O. Primary Care Provider [phone] Encounter Details Date Type Department Care Team Description 11/30/2021 Clinical Communication Department of Internal Andrei Dejesus Medicine in [place], [place], [place].O Mauro [place] [address] [place] [phone] Social History Tobacco Use Types Packs/Day Years [...] do you attend synagogue or Never 2021 roman catholic services? Do [...] have completed or the highest Martin, MEd, MEDICINE TEACHER, CAYDEN) degree you have received? Sex Assigned at Date Recorded Male 05/21/2018 2:34 PM CDT documented as of this encounter Miscellaneous Notes Telephone Encounter - Yari Lee, C.M.A. - 11/30/2021 1:57 PM LOW VISION THERAPIST Information Discussed Informed patient of providers message. [...] following references were used: provider Dr. Reid VISION THERAPIST Telephone Encounter - Franklin-Shayla Dejesus D.O. - 11/30/2021 12:59 PM LOW VISION THERAPIST Thank you for the information . This [...] by: Shayla Alford D.O. 11/30/21 1:01 PM LOW VISION THERAPIST VISION THERAPIST Telephone Encounter - Arlyn Batista R.N. - 11/30/2021 12:13 PM CST Patient reporting that he has tested positive COVID at [place] today. Was going for dental appointment and test prior to colonoscopy. Both were cancelled and needed to be rescheduled. Patient states he alsohad questions regarding colonoscopy prep but will wait until appointment with Dr. Reid on January 02 at appointment. Patient will call back if he has questions prior to then. VISION THERAPIST documented in this encounter Plan of Treatment Not on filedocumented as of this encounter Visit Diagnoses Not on filedocumented in this encounter Additional Health Concerns Infection Onset Date Last Indicated Resolved Time COVID19 Pending 11/29/2021 11/29/2021 12/19/2021 5:54 AM CDT Assessment Noted Time PHQ-9 Depression Total Score: 18 04/28/2018 11:27 AM C DT documented as of this encounter Care Teams Manual Arts Therapist Relationship Specialty Start Date End Date Shayla Alford D.O. PCP - General Internal Medicine 05/22/[address] [address] documented as of this encounter
--- OUTSIDE RECORDS SUMMARY | 2022-05-27 11:52 | XMS_ITS | Encounter Summary ---
:1945 Author Organization [facility] Address [address] [place] [address] Care Team Providers Name Role Phone Shayla Alford D.O. Primary Care Provider [phone] Reason for Referral Outpatient (Routine) - Authorized Specialty Diagnoses / Procedures Referred By Contact Refer red To Contact Nephrology and Melissa Ferrer [place] [facility] M.B.B.S. 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 [address] [place] [address] Referral ID Status Reason Start Date Expiration Date Visits Requ ested Visits Authorized [id number] Closed 05/16/2021 05/16/2022 1 1 Encounter Details Date Type Department Care Team Description 10/09/2021 Office Visit Division of Nephrology Nabil, Chron ic Kidney Disease (CKD), Stage 3b Glomerular Filtration Rate (GFR) 30 To 44 (HCC) (Primary Dx); and Hypertension in Melissa, Hyperten nubia Essential Primary [place], [place] M.B.B.S. [address] [facility] [address] [place] [phone] [phone] Social History Tobacco Use Types Packs/Day Years [...] do you attend methodist or Never 2021 orthodoxy services? Do you [...] completed or the highest Martin, MEd, HOME HOSPICE RN, CAYDEN) degree you have received? Sex Assigned at Date Recorded Male 05/21/2018 2:34 PM CDT documented as of this encounter Last Filed Vital Signs Vital Sign Reading Time Taken Comments Blood Pressure 128/64 10/09/2021 4:15 PM MANAGER RETIREMENT Pulse 57 10/09/2021 4:15 PM MANAGER RETIREMENT Temperature 37.3 ??C (99.1 ??F) 10/09/2021 3:28 PM MANAGER RETIREMENT Respiratory Rate - - Oxygen Saturation - - Inhaled Oxygen Concentration - - Weight 97.3 kg (214 lb 8.1 oz) 10/09/2021 3:28 PM MANAGER RETIREMENT Height 184.9 cm (6' 0.8) 10/09/2021 3:28 PM MANAGER RETIREMENT Body Mass Index 28.46 10/09/2021 3:28 PM MANAGER RETIREMENT documented in this encounter Progress Notes Melissa [...] with me in 4 months Jose MoranB.S. GER RETIREMENT documented in this encounter Plan of Treatment [...] documented as of this encounter Care Teams Wheat And Oats Flake Miller Relationship Specialty Start Date End Date Shayla Alford D.O. PCP - General Internal Medicine 05/22/[address] [place] [address] documented as of this encounter
--- OUTSIDE RECORDS SUMMARY | 2022-05-27 11:52 | XMS_ITS | Encounter Summary ---
:1945 Author Organization [facility] Address [address] [place] [address] Care Team Providers Name Role Phone Shayla Alford D.O. Primary Care Provider [phone] Encounter Details Date Type Department Care Team [...] do you attend nondenominational or Never 2021 evangelical services? Do you [...] have completed or the highest Martin, MEd, JACQUARD CARD CUTTER, CAYDEN) degree you have received? Sex Assigned at Date Recorded Male 05/21/2018 2:34 PM CDT documented as of this encounter Plan of Treatment Not on filedocumented as of this encounter Procedures Procedure Name Priority Date/Time Associated Diagnosis Comme nts UROLOGY IMAGE EXAM Routine 10/25/2021 3:05 PM Res ults for this LUMBER HACKER procedure are i n the results section. documented in this encounter Results BLADDER-Urology Image Exam (10/25/2021 3:05 PM LUMBER HACKER) Specimen (Source) Anatomical Collection Method Collection Time Re ceived Time Location / / Volume Laterality 10/25/2021 3:03 PM LUMBER HACKER Narrative [facility] - 10/25/2021 3:08 PM LUMBER HACKER This order has been created and auto-finalized [...] documented as of this encounter Care Teams Pot Room Tapper Relationship Specialty Start Date End Date Shayla Alford D.O. PCP - General Internal Medicine 05/22/20 [address], [place] [address] documented as of this encounter
--- OUTSIDE RECORDS SUMMARY | 2022-05-27 11:52 | XMS_ITS | Encounter Summary ---
:1945 Author Organization [facility] Address [address] [place] [address] Care Team Providers Name Role Phone Shayla Alford D.O. Primary Care Provider [phone] Reason for Visit Reason Comments Pre-op Exam Diabetes Mellitus Knee Pain Fell about a month ago Outpatient (Routine) - Closed Specialty Diagnoses / Procedures Referred By Contact Refer red To Contact Community Internal Diagnoses Preoperative Exam ARMAAN Alford [facility] Medicine Tulio Mcguire [address] [place] [address] Referral ID Status Reason Start Date Expiration Date Visits Requ ested Visits Authorized [id number] Closed 09/13/2021 09/13/2022 1 1 Encounter Details Date Type Department Care Team Description 11/29/2021 Office Visit Department of Internal Rocío sanders Systolic (Congestive) Heart Failure (HCC) (Primary Dx); Medicine in [facility] , [place] Mcguire Preoperative Exam; [place] [address] [facility] Diabetes Mellitus Type 2 Hyperglycemia ( HCC); [address] [place], [place] Hypothyroidism; [place] [address] Hypertension Essential Primary [phone] Social History Tobacco [...] do you attend jewish or Never 2021 scientology services? Do you [...] have completed or the highest Martin, MEd, EDUCATIONAL TECHNOLOGY COORDINATOR, CAYDEN) degree you have received? Sex Assigned at Date Recorded Male 05/21/2018 2:34 PM CDT documented as of this encounter Last Filed Vital Signs Vital Sign Reading Time Taken Comments Blood Pressure 121/65 11/29/2021 11:27 AM HOSPITAL SECRETARY Pulse 65 11/29/2021 11:27 AM HOSPITAL SECRETARY Temperature 36.8 ??C (98.2 ??F) 11/29/2021 11:27 AM HOSPITAL SECRETARY Respiratory Rate - - Oxygen Saturation - - Inhaled Oxygen Concentration - - Weight 101 kg (223 lb 1.7 oz) 11/29/2021 11:27 AM HOSPITAL SECRETARY Height - - Body Mass Index 29.6 10/09/2021 3:28 PM HOSPITAL SECRETARY documented in this encounter Patient Instructions Patient InstructionsShayla Alford D.O. - 11/29/2021 11:30 AM HOSPITAL SECRETARY Hold Plavix 5 days before procedure or starting today Take half of your long acting Lantus friday evening (14 units) Hold your short acting insulin or NovoLog the AM of the procedure Meet with our pharmacist Zoya for insulin adjustment since you are Starting Ozempic. ITAL SECRETARY documented in this encounter H&P Notes Shayla Alford D.O. - 11/29/2021 11:30 AM CST INTERNAL MEDICINE PREOPERATIVE EXAM: DATE OF SERVICE 11/29/2021 LOCATION OF SERVICE [facility] CHIEF COMPLAINT/REASON FOR VISIT Preoperative exam Chief [...] 11/17/2020 showed an EF of 50%, with ibgs-re-epqhcshu mitral valve regurgitation. His blood pressure has [...] at 9.5. The patient [facility] where he has a dietitian as well as an atg java developer. Due to worsening kidneyfunction, his metformin had [...] was not able to obtainTrulicity at the [facility] but he was able to receive Ozempic. [...] (HCC) 10/16/2009 Pulmonary symptomatology, diagnosis at the [facility] unclear, but probably some degree of COPD. [...] INSERTION INTRAOCULAR LENS Left 04/2008 At the [facility] ??? LASER OF PROSTATE W/ GREEN LIGHT PVP 08/28/2016 Greenlight photoselective vaporization of the prostate and cystoscopy with bladder biopsy and fulguration of a 2cm area; 08/28/[address] Prasanna Bernal at the [facility]. ??? TONSILLECTOMY ??? TONSILLECTOMY 1967 [...] Master's degree (e.g., MA, MS, Martin, MEd, EDUCATIONAL TECHNOLOGY COORDINATOR, CAYDEN) Occupational History Employer: RETIRED Tobacco Use [...] and Family: Once a week ??? Attends Judaism Services: Never ??? Active Member of Clubs [...] mL 3 ??? SYRINGE-NEEDLE,INSULIN,0.5 ML (INSULIN [place]YRINGE [facility] ??? torsemide (DEMADEX) 20 mg tablet Take [...] 11/17/2020 showed an EF of 50%, with myip-oi-vsgrrzgc mitral valve regurgitation. His blood pressure has [...] has a dietitian as well as an atg java developer. Due to worsening kidneyfunction, his metformin had [...] was not able to obtainTrulicity at the [facility] but he was able to receive Ozempic. [...] by: Shayla Alford D.O. 11/29/21 11:35 AM HOSPITAL SECRETARY ITAL SECRETARY documented in this encounter Plan of Treatment [...] documented as of this encounter Care Teams Nurse Plastics Relationship Specialty Start Date End Date Shayla Alford D.O. PCP - General Internal Medicine 05/22/[address] [address] documented as of this encounter
--- OUTSIDE RECORDS SUMMARY | 2022-05-27 11:52 | XMS_ITS | Encounter Summary ---
:1945 Author Organization [facility] Address [address] [place] [address] Care Team Providers Name Role Phone Shayla Alford D.O. Primary Care Provider [phone] Encounter Details Date Type Department Care Team Description 11/07/2021 Orders Only Department of Internal Rocío Medicine in [place], [place], [place].Jason Wade [place] [address] [place] [phone] (Wo rk) Social History Tobacco Use Types [...] do you attend taoist or Never 2021 hindu services? Do you [...] have completed or the highest Martin, MEd, PACS ADMINISTRATOR, CAYDEN) degree you have received? Sex Assigned at Date Recorded Male 05/21/2018 2:34 PM CDT documented as of this encounter Plan of Treatment Not on filedocumented as of this encounter Visit Diagnoses Not on filedocumented in this encounter Additional Health Concerns Assessment Noted Time PHQ-9 Depression Total Score: 18 04/28/2018 11:27 AM C DT documented as of this encounter Care Teams Grain Mill Products Inspector Relationship Specialty Start Date End Date Shayla Alford D.O. PCP - General Internal Medicine 05/22/[address] [phone] documented as of this encounter
--- OUTSIDE RECORDS SUMMARY | 2022-05-27 11:52 | XMS_ITS | Encounter Summary ---
:1945 Author Organization [facility] Address [address] [place] [address] Care Team Providers Name Role Phone Shayla Alford D.O. Primary Care Provider Encounter Details Date Type Department Care Team Description 11/07/2021 Clinical Communication Department of Internal Andrei Dejesus Medicine in [place], [place], [place].O Mauro [place] [address] [place] [phone] Social History Tobacco Use Types Packs/Day Years [...] do you attend nondenominational or Never 2021 christian services? Do you [...] or the highest Martin, MEd, ELECTRIC MOTOR TESTER, CAYDEN) degree you have received? Sex Assigned at Date Recorded Male 05/21/2018 2:34 PM CDT documented as of this encounter Miscellaneous Notes Telephone Encounter - Jacquie Hamilton L.P.N. - 11/07/2021 11:35 AM MAITRE D Patient called and given recent lab findings along with advisement from provider per Dr Reid direction. Copy of message sent to patient via his patient portal per his direction RE D Telephone Encounter - Jacquie Hamilton LMauroPMauroN. - 11/07/2021 11:33 AM MAITRE D ----- Message from Shayla Alford D.O. sent at 11/07/2021 11:24 AM MAITRE D ----- Please, call patient following information. Good [...] if he is ableto obtain from the [facility]. once the Trulicity has started, they will likely start decreasing his insulindose to avoid hypoglycemia episodes. I placed a referral for him to also work with our pharmacist jian who does excellent job at titrating medications especially diabetic medications Electronically signed by: Shayla Alford D.O. 11/07/21 11:23 AM MAITRE D RE D documented in this encounter Plan of Treatment Not on filedocumented as of this encounter Visit Diagnoses Not on filedocumented in this encounter Additional Health Concerns Assessment Noted Time PHQ-9 Depression Total Score: 18 04/28/2018 11:27 AM C DT documented as of this encounter Care Teams Tipping Machine Operator Automatic Relationship Specialty Start Date End Date Shayla Alford D.O. PCP - General Internal Medicine 05/22/[address] [phone] documented as of this encounter
--- OUTSIDE RECORDS SUMMARY | 2022-05-27 11:52 | XMS_ITS | Encounter Summary ---
:1945 Author Organization [facility] Address [address] [place] [address] Care Team Providers Name Role Phone Shayla Alford D.O. 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 [facility] Procedures Cystoscopy (specific provider) [address] [place] [address] Referral ID Status Reason Start Date Expiration Date Visits V isits Requested Authorized [id number] Authorized 11/19/2021 11/19/2022 1 1 TURNER Reason for Visit Reason Comments Post-op Bladder Cancer Outpatient (Routine) - Closed Specialty Diagnoses / Procedures Referred By Contact Refer red To Contact Urology Prasanna Bernal M.D. [facility] Region [address] [place] [address] Referral ID Status Reason Start Date Expiration Date Visits Requ ested Visits Authorized [id number] Closed 10/25/2021 10/25/2022 1 1 Encounter Details Date Type Department Care Team Description 11/19/2021 Office Visit Department of Urology Prasanna Bernal Mal ignant Neoplasm Of in Moise Patel M.D. Bladder Posterior Wall [address] ([facility]) (Primary Dx) [place] [phone] [...] do you attend shinto or Never 2021 sikh services? Do you [...] have completed or the highest Martin, MEd, CHEMICAL PROCESS ANALYST, CAYDEN) degree you have received? Sex Assigned at Date Recorded Male 05/21/2018 2:34 PM CDT documented as of this encounter Last Filed Vital Signs Vital Sign Reading Time Taken Comments Blood Pressure - - Pulse 57 11/19/2021 8:04 AM SHOE TURNER Temperature - - Respiratory Rate - - Oxygen Saturation 98% 11/19/2021 8:04 AM SHOE TURNER room ai r Inhaled Oxygen Concentration - [...] time. Prasanna Bernal M.D. 11/19/21 8:45 AM SHOE TURNER Answers for HPI/ROS submitted by the patient on 10/09/2021 No general issues: Yes No eye issues: Yes No ENT issues: Yes No heart issues: Yes No respiratory issues: Yes Diarrhea: Yes No muscle/bone issues: Yes No skin issues: Yes Loss of balance or tendency to fall easily: Yes No mental health issues: Yes Bruises/bleeds easily: Yes Frequent urination: Yes Incontinence (urine leakage): Yes TURNER documented in this encounter Plan of Treatment Scheduled Orders Name Type Priority Associated Diagnoses Order S chedule Cytology Non-BOBBIN TRUCKER Pathology and Routine Malignant Neoplasm Expe cted: (Scheduled) Cytology Of Bladder Posterior 022 Wall (HCC) (Approximate), Expires: 11/19/2022 documented as of this encounter Visit Diagnoses Diagnosis 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 PCP - General Internal Medicine 05/[address] [place] [address] documented as of this encounter
--- OUTSIDE RECORDS SUMMARY | 2022-05-27 11:52 | XMS_ITS | Encounter Summary ---
:1945 Author Organization [facility] Address [address] [place] [address] Care Team Providers Name Role Phone Shayla Alford D.O. Primary Care Provider [phone] Encounter Details Date Type Department Care Team Description 10/18/2021 Hospital Encounter Department of Prateek Bernal Primary; Laboratory Medicine Pato Mims Chronic Kidney Disease (CKD), Stage 3b G lomerular Filtration Rate (GFR) 30 To 44 (HCC); in [place] Malignant Neop lasm Of Bladder Lateral Wall (HCC) [address] [place] [phone] Social History Tobacco Use Types Packs/Day Years [...] do you attend nondenominational or Never 2021 samaritan services? Do you [...] have completed or the highest Martin, MEd, BOAT HOP, CAYDEN) degree you have received? Sex Assigned [...] (FREESTYLE SOFYA) times a day. Use to [facility] scan Sofya sensor 5 times daily and [...] PEN NEEDLE, DIABETIC Yani Fine [address] [facility] disposable needles. For use with Insulin Pens, 4 times daily SYRINGE-NEEDLE,INSULIN,0 0 .5 ML (INSULIN SYRINGE [facility]) torsemide (DEMADEX) 20 Take 1 tablet (20 [...] Priority Date/Time Associated Diagnosis Comme nts CYTOLOGY NON-MUTUEL CASHIER Routine 10/18/2021 10:20 Malignant Neoplasm O f Results for this (SCHEDULED) AM DEVELOPMENTAL EDUCATION INSTRUCTOR Bladder Lateral Wall procedu re are in ([facility]) the results section. UROVYSION (R) FOR Routine 10/18/2021 10:20 Malignant Neoplasm Of Results for this BLADDER CANCER AM DEVELOPMENTAL EDUCATION INSTRUCTOR Bladder Lateral Wall proce dure are in ([facility]) the results section. ALBUMIN, RANDOM, U Routine 10/18/2021 10:20 Hypertension Resul ts for this AM DEVELOPMENTAL EDUCATION INSTRUCTOR Essential Primar y procedure are in Chronic Kidney the results Disease (CKD), Stage section . 3b Glomerular Filtration Rate (GFR) 30 To 44 ([facility]) URINALYSIS WITH Routine 10/18/2021 10:20 Hypertension Results for this MICROSCOPIC AM DEVELOPMENTAL EDUCATION INSTRUCTOR Essential Primar y procedure are in Chronic Kidney the results Disease (CKD), Stage section . 3b Glomerular Filtration Rate (GFR) 30 To 44 ([facility]) documented in this encounter Results UroVysion for Detection of Bladder Cancer, Urine (10/18/2021 10:20 AM DEVELOPMENTAL EDUCATION INSTRUCTOR) Component Value Ref Test Analysis Performed Pathologis t Range Method Time At [facility] Result Summary Negative 11/05/2021 DTL 5:07 PM DEVELOPMENTAL EDUCATION INSTRUCTOR Karyotype No evidence of 11/05/2021 DTL urothelial 5:07 PM DEVELOPMENTAL EDUCATION INSTRUCTOR carcinoma. Reason for Evaluate for 11/05/2021 DTL referral urothelial 5:07 PM DEVELOPMENTAL EDUCATION INSTRUCTOR carcinoma. Specimen Varies 11/05/2021 DTL 5:07 PM DEVELOPMENTAL EDUCATION INSTRUCTOR Source Voided 11/05/2021 DTL 5:07 PM DEVELOPMENTAL EDUCATION INSTRUCTOR Released By Dhiraj Porras, 11/05/2021 DTL M.D. 5:07 PM DEVELOPMENTAL EDUCATION INSTRUCTOR Interpretation This test result does not rule out the possibility t hat the 11/05/2021 DTL patient may have a low-grade (i.e. grade 1 or 2) 5:07 PM DEVELOPMENTAL EDUCATION INSTRUCTOR non-invasive papillary urothelial carcinoma. Some patients with low grade non-invasive papillary urothelial carcinoma do not have abnormalities with this FISH test. Comment: ----ADDITIONAL INFORMATION---- Fluorescence in situ hybridization (FISH ) with centromere probes for chromosomes 3 (D3Z1), 7(D7Z1), 17(D17Z1) , and a locus specific probe for 9p21 ([employer] [place], [place]) . This test has been modified from the man markor's instructions. Its performance characteristics were determi darnell by [facility] in a manner consistent with CLIA requirements. This test has not been cleared or approved by the U.S. Food and Drug Administration . Specimen Anatomical Collection Method Collection Time Receive d Time (Source) Location / / Volume Laterality Varies (Urine, 10/18/2021 10:20 2 Voided) AM DEVELOPMENTAL EDUCATION INSTRUCTOR 11:31 AM DEVELOPMENTAL EDUCATION INSTRUCTOR Narrative This result has an attachment that is no t available. Prasanna Bernal M.D. LAB GENETIC TESTING Performing Organization Address City/State/ZIP Code Phon e Number [facility] - [address] [place], [place] [address] [facility] [place] [address] [facility] [address] Cytology Non-MUTUEL CASHIER (Scheduled) (10/18/2021 10:20 AM DEVELOPMENTAL EDUCATION INSTRUCTOR) Component Value Ref Test Analysis Performed At [facility] gist Range Method Time Signature 10/19/2021 [facility] 9:33 AM DEVELOPMENTAL EDUCATION INSTRUCTOR Fixative 50% alcohol 10/19/2021 [facility] 9:33 AM DEVELOPMENTAL EDUCATION INSTRUCTOR Report Brady Goodrich MD 10/19/2021 [facility] electronically 9:33 AM DEVELOPMENTAL EDUCATION INSTRUCTOR signed by I verify that I have examined all relevant slides/materials for the specimen(s) and rendered or confirmed the diagnosis. Gross Description Received 50 10/19/2021 [facility] ml of yellow 9:33 AM DEVELOPMENTAL EDUCATION INSTRUCTOR alcohol fixed fluid. Collection clean void 10/19/2021 [facility] Procedure 9:33 AM DEVELOPMENTAL EDUCATION INSTRUCTOR Source A. Urine, 10/19/2021 [facility] Clean Catch, 9:33 AM DEVELOPMENTAL EDUCATION INSTRUCTOR voided Clinical History unknown 10/19/2021 [facility] 9:33 AM DEVELOPMENTAL EDUCATION INSTRUCTOR Interpretation A. Urine, Clean Catch, voided (cytospin): Negative f or 10/19/2021 [facility] High-Grade Urothelial Carcinoma. 9:33 AM DEVELOPMENTAL EDUCATION INSTRUCTOR Specimen Anatomical Collection Method Collection Time Receive d Time (Source) Location / / Volume Laterality Varies (Urine, 10/18/2021 10:20 2:04 Clean Catch) AM DEVELOPMENTAL EDUCATION INSTRUCTOR PM DEVELOPMENTAL EDUCATION INSTRUCTOR Narrative This result has an attachment that is no t available. Prasanna Bernal M.D. LAB SURG PATH ORDERABLES Performing Organization Address City/State/ZIP Code Phon e Number [facility]- [address] [place] [address] [place] [address] (ABNORMAL) Albumin, Random, Urine (10/18/2021 10:20 AM DEVELOPMENTAL EDUCATION INSTRUCTOR) [facility] gist Method Time Signature Microalbumin 66.0 mg/L 10/18/2021 OWAT 1:14 PM DEVELOPMENTAL EDUCATION INSTRUCTOR Creatinine 26 mg/dL 10/18/2021 OWAT 1:14 PM DEVELOPMENTAL EDUCATION INSTRUCTOR Albumin/Creatinin 254 (H) <17 mg/g 10/18/2021 OWAT e Ratio 1:14 PM DEVELOPMENTAL EDUCATION INSTRUCTOR Specimen Anatomical Collection Method Collection Time Receive d Time (Source) Location / / Volume Laterality Urine (Urine, 10/18/2021 10:20 10/18/2021 Clean Catch) AM DEVELOPMENTAL EDUCATION INSTRUCTOR 12:44 PM DEVELOPMENTAL EDUCATION INSTRUCTOR Melissa Blackmon LAB URINE ORDERABLES Performing Organization Address City/State/ZIP Code Phon e Number [facility]- [address] [place] [address] [facility] [place] [address] System in [place] [address] [facility] (ABNORMAL) Urinalysis with Microscopic: Urine, Midstream (10/18/2021 10:20 AM DEVELOPMENTAL EDUCATION INSTRUCTOR) Analysis Performed At Patho logist Time Signature Source Urine, Urine, 10/18/2021 FB60 Midstream 10:31 AM DEVELOPMENTAL EDUCATION INSTRUCTOR Clarity Clear Clear 10/18/2021 FB60 11:03 AM DEVELOPMENTAL EDUCATION INSTRUCTOR Color Yellow 10/18/2021 FB60 11:03 AM DEVELOPMENTAL EDUCATION INSTRUCTOR Comment: ----REFERENCE VALUE---- Colorless Yellow Mitra Blood Negative Negative 10/18/2021 11:03 AM DEVELOPMENTAL EDUCATION INSTRUCTOR FB60 Nitrite Negative Negative 10/18/2021 11:03 AM DEVELOPMENTAL EDUCATION INSTRUCTOR FB60 Leukocyte Esterase Negative Negative 10/18/2021 11:[address] FB60 Protein Negative mg/dL 10/18/2021 11:03 AM DEVELOPMENTAL EDUCATION INSTRUCTOR FB60 Comment: ----REFERENCE VALUE---- Negative Trace Glucose >=1000 (A) Negative mg/dL 10/18/2021 11:03 AM DEVELOPMENTAL EDUCATION INSTRUCTOR FB60 Ketones, QI(U) Negative Negative mg/dL 10/18/2021 11:03 AM DEVELOPMENTAL EDUCATION INSTRUCTOR FB60 Bilirubin Negative Negative 10/18/2021 11:03 AM DEVELOPMENTAL EDUCATION INSTRUCTOR FB60 pH 5.5 5.0 - 8.0 10/18/2021 11:03 AM DEVELOPMENTAL EDUCATION INSTRUCTOR FB60 Specific Newton 1.010 1.001 - 1.035 10/18/2021 11:03 AM DEVELOPMENTAL EDUCATION INSTRUCTOR FB60 Urobilinogen 0.2 0.2 - 1.0 mg/dL 10/18/2021 11:[address] FB60 White Blood Cells Occ-3 /hpf 10/18/2021 11:04 AM CS T FB60 Comment: ----REFERENCE VALUE---- Males: 0-3 Females: 0-10 Unknown: 0-10 Red Blood Cells None Seen 0 - 2 /hpf 10/18/2021 11:04 AM DEVELOPMENTAL EDUCATION INSTRUCTOR FB60 Specimen Anatomical Collection Method Collection Time Receive d Time (Source) Location / / Volume Laterality Urine (Urine, 10/18/2021 10:20 10/18/2021 Midstream) AM DEVELOPMENTAL EDUCATION INSTRUCTOR 10:31 AM DEVELOPMENTAL EDUCATION INSTRUCTOR Melissa Blackmon LAB URINE ORDERABLES Performing Organization Address City/State/ZIP Code Phon e Number [facility]- [address] [place] [address] [facility] [address] [place] [address] System in [place] [address] documented in this encounter Visit Diagnoses Diagnosis Hypertension Essential Primary Chronic Kidney Disease (CKD), Stage 3b G lomerular Filtration Rate (GFR) 30 To 44 (HCC) 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 (HCC) documented in this encounter Additional Health Concerns Assessment Noted Time PHQ-9 Depression Total Score: 18 04/28/2018 11:27 AM C DT documented as of this encounter Care Teams Livestock Ranch Hand Relationship Specialty Start Date End Date Shayla Alford D.O. PCP - General Internal Medicine 05/22/20 [address] [place] [phone] documented as of this encounter
--- OUTSIDE RECORDS SUMMARY | 2022-05-27 11:52 | XMS_ITS | Encounter Summary ---
:1945 Author Organization [facility] Address [address] [place] [address] Care Team Providers Name Role Phone Shayla Alford D.O. Primary Care Provider [phone] Reason for Visit Reason Comments Form Review [facility] statement of barney ertifying physician Encounter Details Date Type Department Care Team Description 11/14/2021 Clinical Communication Department of Alexys marin Review Internal Medicine Shayla queen ([facility] in [place] statement [facility] [address] certifying [address] [facility] physician) [place] [phone] Social History Tobacco Use Types Packs/Day Years [...] do you attend evangelical or Never 2021 buddhism services? Do you [...] have completed or the highest Martin, MEd, HARNESS FITTER, CAYDEN) degree you have received? Sex Assigned at Date Recorded Male 05/21/2018 2:34 PM CDT documented as of this encounter Miscellaneous Notes Telephone Encounter - Sheyla Obrien - 11/15/2021 4:41 PM CST Form faxed back to facility and sent for scanning. [facility] Telephone Encounter - Sheyla Obrien - 11/14/2021 9:48 AM CST Form was emailed to Dr. Alford for electronic review/signature. MARINE SERVICES TECHNICIAN: [employer]abe [employer] PHONE NUMBER: [phone] INFO REQUESTED: Statement of certifying physician INSTRUCTIONS: Fax information to [phone] [facility] documented in this encounter Plan of Treatment Not on filedocumented as of this encounter Visit Diagnoses Not on filedocumented in this encounter Additional Health Concerns Assessment Noted Time PHQ-9 Depression Total Score: 18 04/28/2018 11:27 AM C DT documented as of this encounter Care Teams Student Loan Counselor Relationship Specialty Start Date End Date Shayla Alford D.O. PCP - General Internal Medicine 05/22/[address] [phone] documented as of this encounter
--- OUTSIDE RECORDS SUMMARY | 2022-05-27 11:52 | XMS_ITS | Encounter Summary ---
:1945 Author Organization [facility] Address [address] [place] [address] Care Team Providers Name Role Phone Shayla Alford D.O. Primary Care Provider [phone] Encounter Details Date Type Department Care Team Description 11/07/2021 Hospital Encounter Department of Cirilo Bernal Neoplasm Of Laboratory Medicine Pato Mims Bladder Posterior in [place], [address] ([facility] [address] [place] [phone] Social History Tobacco Use [...] do you attend protestant or Never 2021 denominational services? Do you [...] have completed or the highest Martin, MEd, HAND SINGER, CAYDEN) degree you have received? Sex Assigned [...] (FREESTYLE SOFYA) times a day. Use to [facility] scan Sofya sensor [...] PEN NEEDLE, DIABETIC Yani Fine 30 0 [facility] disposable needles. For use with Insulin Pens, 4 times daily SYRINGE-NEEDLE,INSULIN,0 0 .5 ML (INSULIN SYRINGE [facility]) torsemide (DEMADEX) 20 Take 1 tablet (20 [...] sm Results for this AEROBIC + SUSC, MACHINE BINDER STRIPPER Of Bladder Posterior proc edure are in URINE Wall (HCC) the results section. documented in this encounter Results (ABNORMAL) Bacterial Culture, Aerobic + Susc, Urine (11/07/2021 8:30 AM MACHINE BINDER STRIPPER) Analysis Performed At [facility] Time Signature Urine Culture Mixed 11/08/2021 [facility] surekha. (A) 10:55 AM MACHINE BINDER STRIPPER Specimen Anatomical Collection Method Collection Time Receive d Time (Source) Location / / Volume Laterality Urine (Urine, 11/07/2021 8:30 AM 11/07/19 22 2:14 Midstream) MACHINE BINDER STRIPPER PM MACHINE BINDER STRIPPER Comment: Specimen Source Site: Urine Mid stream Prasanna Bernal M.D. 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 PCP - General Internal Medicine 05/22/[address] [phone] documented as of this encounter
--- OUTSIDE RECORDS SUMMARY | 2022-05-27 11:52 | XMS_ITS | Encounter Summary ---
:1945 Author Organization [facility] Address [address] [place] [address] Care Team Providers Name Role Phone Shayla Alford D.O. Primary Care Provider [phone] Reason for Referral Outpatient (Routine) - Closed Specialty Diagnoses / Procedures Referred By Contact Refer red To Contact Urology Prasanna Bernal M.D. 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 [facility] [address] [place] [phone] Referral ID Status Reason Start Date Expiration Date Visits Requ ested Visits Authorized [id number] Closed 10/25/2021 10/25/2022 1 1 TOGGLER Reason for Visit Reason Comments Cystoscopy Post bcg Outpatient (Routine) - Closed Specialty Diagnoses / Procedures Referred By Contact Refer red To Contact Diagnoses Malignant Neoplasm Of Bladder Lateral Wall (HCC) Prasanna Bernal M.D. [facility] Region Procedures Cystoscopy (specific provider) [address] [place] [phone] Referral ID Status Reason Start Date Expiration Date Visits Requ ested Visits Authorized [id number] Closed 07/23/2021 07/23/2022 1 1 Encounter Details Date Type Department Care Team Description 10/25/2021 Office Visit Department of Urology Prasanna Bernal Mal ignant Neoplasm Of in Moise Dixon M.D. Bladder Posterior Wall [address] (HCC) [place] [phone] Social History Tobacco Use Types Packs/Day Years [...] do you attend confucianism or Never 2021 mandaeism services? Do you [...] have completed or the highest Martin, MEd, SEAFOOD MANAGER, CAYDEN) degree you have received? Sex Assigned at Date Recorded Male 05/21/2018 2:34 PM CDT documented as of this encounter Last Filed Vital Signs Vital Sign Reading Time Taken Comments Blood Pressure - - Pulse 53 10/25/2021 2:34 PM SKIN TOGGLER Temperature 35.9 ??C (96.6 ??F) 10/25/2021 2:34 PM SKIN TOGGLER Respiratory Rate - - Oxygen Saturation 98% 10/25/2021 2:34 PM SKIN TOGGLER Inhaled Oxygen Concentration - - Weight - [...] by: Prasanna Bernal M.D. 10/25/21 4:02 PM SKIN TOGGLER Answers for HPI/ROS submitted by the patient on 10/09/2021 No general issues: Yes No eye issues: Yes No ENT issues: Yes No heart issues: Yes No respiratory issues: Yes Diarrhea: Yes No muscle/bone issues: Yes No skin issues: Yes Loss of balance or tendency to fall easily: Yes No mental health issues: Yes Bruises/bleeds easily: Yes Frequent urination: Yes Incontinence (urine leakage): Yes TOGGLER documented in this encounter Plan of Treatment Scheduled Referrals Name Type Priority Associated Diagnoses Order [facility] Outpatient Referral Routine Malignant Neopl asm Expected: consult (clinic) Of Bladder Posterior Wall (HCC) (Approximate), Expires: 01/23/2023 Urology office Outpatient Referral Routine Expect ed: visit (clinic) 11/19/2021 (Approximate), Expires: 01/23/2023 documented as of this encounter Results SARS Coronavirus-2 RNA, V Asymptomatic (11/11/2021 8:06 AM SKIN TOGGLER) [facility] Method Time Signature SARS-CoV-2 Swab, 11/11/2021 MKTO Specimen Nasopharynx 11:29 PM Source SKIN TOGGLER SARS CoV-2 Undetected Undetected 11/11/2021 [facility] RNA, TMA 11:29 PM SKIN TOGGLER Comment: SARS-CoV-2 RNA absent. This result does not rule out COVID-19 in the patient, as the sensitivity of the test depends o n the timing of the specimen collection and the quality of the specim en. Result should be correlated with patient's history and clinical presentat ion. ----ADDITIONAL INFORMATION---- This molecular amplification test was pe rformed using the Aptima SARS-CoV-2 assay ([employer] on the GIVINGtraxs tem under emergency use authorization (EUA) by the U.S. Food and Drug Administ ration. Fact sheets for this EUA assay can be fo und at the following links: For Healthcare Providers: https://www.[employer] a.gov/media/706405/download For Patients: https://www.fda.gov/media/ 154448/download Specimen Anatomical Collection Method Collection Time Receive d Time (Source) Location / / Volume Laterality Varies 11/11/2021 8:06 AM 2 4:32 (Nasopharynx) SKIN TOGGLER PM SKIN TOGGLER Prasanna Bernal M.D. LAB MICROBIOLOGY - GENERAL Jason PORTER Performing Organization Address City/[facility] Phon e Number [address] [address] [place] [address] System [address] (ABNORMAL) Bacterial Culture, Aerobic + Susc, Urine (11/07/2021 8:30 AM SKIN TOGGLER) Analysis Performed At [facility] Time Signature Urine Culture Mixed 11/08/2021 [facility] surekha. (A) 10:55 AM SKIN TOGGLER Specimen Anatomical Collection Method Collection Time Receive d Time (Source) Location / / Volume Laterality Urine (Urine, 11/07/2021 8:30 AM 11/07/19 22 2:14 Midstream) SKIN TOGGLER PM SKIN TOGGLER Comment: Specimen Source Site: Urine Mid stream Prasanna Bernal M.D. 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 PCP - General Internal Medicine 05/22/[address] [place] [phone] documented as of this encounter
--- OUTSIDE RECORDS SUMMARY | 2022-05-27 11:52 | XMS_ITS | Encounter Summary ---
:1945 Author Organization [facility] Address [address] [place] [address] Care Team Providers Name Role Phone Shayla Alford D.O. Primary Care Provider [phone] Encounter Details Date Type Department Care Team Description 10/09/2021 Hospital Encounter Department of Prateek Ferrer Primary; Laboratory Medicine Melissa, Chronic Kidney Disease (CKD), Stage 3b Glomerular Filtration Rate (GFR) 30 To 44 (HCC) [facility] [address] [facility] [address] [place] [phone] Social History Tobacco Use Types Packs/Day Years [...] do you attend confucianism or Never 2021 methodist services? Do you [...] have completed or the highest Martin, MEd, RETORT UNLOADER, CAYDEN) degree you have received? Sex Assigned [...] Results f or this PANEL, S AM BILLING CHECKER Essential Primar y procedure are in Chronic Kidney the results Disease (CKD), Stage section . 3b Glomerular Filtration Rate (GFR) 30 To 44 (HCC) URIC ACID, S/P Routine 10/09/2021 11:08 Hypertension Results f or this AM BILLING CHECKER Essential Primar y procedure are in Chronic Kidney the results Disease (CKD), Stage section . 3b Glomerular Filtration Rate (GFR) 30 To 44 (HCC) documented in this encounter Results Uric Acid (10/09/2021 11:08 AM BILLING CHECKER) P athologist Signature Uric Acid, P 7.5 3.7 - 8.0 10/09/2021 AUST mg/dL 4:28 PM BILLING CHECKER Specimen Anatomical Collection Method Collection Time Receive d Time (Source) Location / / Volume Laterality Blood (Blood, 10/09/2021 11:08 10/09/2021 4:05 Venous) AM BILLING CHECKER PM BILLING CHECKER Melissa Blackmon LAB BLOOD ADD-ON Performing Organization Address City/State/ZIP Code Phon e Number [facility]- [address] [place] [address] [facility] [place] [address] [facility] [address] (ABNORMAL) Renal Function Panel (10/09/2021 11:08 AM BILLING CHECKER) Analysis Performed At Patho logist Time Signature Potassium, P 4.6 3.6 - 5.2 10/09/2021 [place] mmol/L 11:36 AM BILLING CHECKER Sodium, P 133 (L) 135 - 145 10/09/2021 [place] mmol/L 11:36 AM BILLING CHECKER Chloride, P 98 98 - 107 10/09/2021 [place] mmol/L 11:36 AM BILLING CHECKER Bicarbonate, P 22 22 - 29 10/09/2021 [place] mmol/L 11:35 AM BILLING CHECKER Anion Gap, P 13 7 - 15 10/09/2021 [facility] 11:36 AM BILLING CHECKER BUN (Blood Urea 38 (H) 8 - 24 10/09/2021 [place] Nitrogen), P mg/dL 11:35 AM BILLING CHECKER Creatinine 1.69 (H) 0.74 - 10/09/2021 [facility] 1.35 mg/dL 11:35 AM BILLING CHECKER eGFR-Black/Afri 44 (L) >=60 10/09/2021 [place] can Finnish mL/min/BSA 11:35 AM BILLING CHECKER Comment: ----ADDITIONAL INFORMATION---- Estimated GFR calculated using the 2009 CKD_EPI creatinine equation. eGFR Non-Black/ 38 (L) >=60 mL/min/BSA 10/09/2021 11:35 AM BILLING CHECKER [facility] Finnish Comment: ----ADDITIONAL INFORMATION---- Estimated GFR calculated using the 2009 CKD_EPI creatinine equation. Calcium, Total, P 8.9 8.8 - 10.2 mg/dL 10/09/2021 11:3 5 AM BILLING CHECKER [facility] Glucose, P 440 (CH) 70 - 140 mg/dL 10/09/2021 12:34 PM BILLING CHECKER [place] Albumin, P 3.6 3.5 - 5.0 g/dL 10/09/2021 11:35 AM BILLING CHECKER [place] Phosphorus (Inorganic), P 4.4 2.5 - 4.5 mg/dL 10/09/19 4:28 PM BILLING CHECKER AUST Specimen Anatomical Collection Method Collection Time Receive d Time (Source) Location / / Volume Laterality Blood (Blood, 10/09/2021 11:08 10/09/2021 4:05 Venous) AM BILLING CHECKER PM BILLING CHECKER Narrative [facility] - 10/09/2021 4:28 PM BILLING CHECKER Specimen Information: Specimen ID: [id number] Specimen Type: Blood Specimen Collection Start Date: 10/09/19 11:08 AM Specimen Received Date: 10/09/2021 ??4:0 5 PM Specimen ID: [id number] Specimen Type: Blood Specimen Collection Start Date: 10/09/19 11:08 AM Specimen Received Date: 10/09/2021 11:09 AM Melissa Blackmon LAB BLOOD ADD-ON Performing Organization Address City/State/ZIP Code Phon e Number [facility]- [address] [place], [place] [id number] [place] [address] [place] [address] System in [place] [address] [place] [address] [facility] [address] documented in this encounter Visit Diagnoses Diagnosis Hypertension Essential Primary Chronic Kidney Disease (CKD), Stage 3b G lomerular Filtration Rate (GFR) 30 To 44 (HCC) documented in this encounter Additional Health Concerns Assessment Noted Time PHQ-9 Depression Total Score: 18 04/28/2018 11:27 AM C DT documented as of this encounter Care Teams Envelope Press Operator Relationship Specialty Start Date End Date Shayla Alford D.O. PCP - General Internal Medicine 05/22/[address] [place] [phone] documented as of this encounter
--- OUTSIDE RECORDS SUMMARY | 2022-05-27 11:52 | XMS_ITS | Encounter Summary ---
:1945 Author Organization [facility] Address [address] [place] [address] Care Team Providers Name Role Phone Shayla Alford D.O. Primary Care Provider [phone] Reason for Visit Reason Comments URO SURGERY ON 11-14 Encounter Details Date Type Department Care Team Description 10/25/2021 Clinical Communication Department of Alexys URO SURGERY ON 11-14 Internal Medicine Shayla queen in [place], D.O. [place] [address] [place] [phone] Social History Tobacco Use Types Packs/Day [...] do you attend episcopal or Never 2021 oriental orthodox services? Do [...] completed or the highest Martin, MEd, CORPORATE SECURITIES RESEARCH ANALYST, CAYDEN) degree you have received? Sex Assigned at Date Recorded Male 05/21/2018 2:34 PM CDT documented as of this encounter Miscellaneous Notes Telephone Encounter - Jimena Copeland RMauroNMauro - 10/25/2021 3:53 PM CST Noted in desk calendar. NICAL PROJECT COORDINATOR Telephone Encounter - Justina Wilkins - 10/25/2021 3:46 PM CST SURGEON: DR. STACY ASSIST: NONE PRE-OP DATE: 11-14-[address] MCCARTY NASAL SWAB: 11-11-21 SURGERY DATE: 11-14-21 DIAGNOSIS: BLADDER TUMOR/ CANCER PROCEDURE: 1. TRANSURTHERAL RESECTION OF BLADDER TUMOR 2. RANDOM BLADDER BIOPSIES 3. ANESTHESIA: [facility] WILL CALL WITH ARRIVAL TIME. NICAL PROJECT COORDINATOR documented in this encounter Plan of Treatment Not on filedocumented as of this encounter Visit Diagnoses Not on filedocumented in this encounter Additional Health Concerns Assessment Noted Time PHQ-9 Depression Total Score: 18 04/28/2018 11:27 AM C DT documented as of this encounter Care Teams Slice Plug Cutter Operator Relationship Specialty Start Date End Date Shayla Alford D.O. PCP - General Internal Medicine 05/22/[address] [phone] documented as of this encounter
--- OUTSIDE RECORDS SUMMARY | 2022-05-27 11:52 | XMS_ITS | Encounter Summary ---
:1945 Author Organization [facility] Address [address] [place] [address] Care Team Providers Name Role Phone Shayla Alford D.O. Primary Care Provider [phone] Reason for Referral Outpatient (Routine) - Closed Specialty Diagnoses / Procedures Referred By Contact Refer red To Contact Diagnoses Preoperative Exam Shayla Alford [facility] [place] [facility] Procedures ECG 12 Lead D.O. [address] [place] [phone] Referral ID Status Reason Start Date Expiration Date Visits Requ ested Visits Authorized [id number] Closed 11/06/2021 11/06/2022 1 1 IRATORY CARE TECHNICIAN Reason for Visit Outpatient (Routine) - Closed Specialty Diagnoses / Procedures Referred By Contact Refer red To Contact Diagnoses Preoperative Exam Shayla Alford [facility] [place] [facility] Procedures ECG 12 Lead D.O. [address] [place] [phone] Referral ID Status Reason Start Date Expiration Date Visits Requ ested Visits Authorized [id number] Closed 11/06/2021 11/06/2022 1 1 Encounter Details Date Type Department Care Team Description 11/07/2021 Hospital Encounter Department of Rocío Preop erative Exam Laboratory Medicine in , Gianna McguireO. [place], [place] [address] [place] [phone] Social History Tobacco Use Types Packs/Day [...] do you attend mandaeism or Never 2021 yazdanism services? Do you [...] have completed or the highest Martin, MEd, MILANESE KNITTING MACHINE OPERATOR, CAYDEN) degree you have received? [...] (FREESTYLE SOFYA) times a day. Use to [facility] [place] Sofya sensor 5 times daily and [...] AM Preoperative Exam Resu lts for this RESPIRATORY CARE TECHNICIAN procedure are i n the results section . documented in this encounter Results ECG 12 Lead (11/07/2021 8:40 AM RESPIRATORY CARE TECHNICIAN) P athologist Signature Ventricular Rate 47 BPM MUSE ECG/Min [place] Interval 230 ms MUSE QRSD Interval 112 ms MUSE QT Interval 498 ms MUSE QTC Interval 440 ms MUSE P [place] 87 degrees MUSE R [place] -35 degrees MUSE T Wave [place] 6 degrees MUSE Specimen Anatomical Collection Method Collection Time Receive d Time (Source) Location / / Volume Laterality 11/07/2021 8:40 AM 9:10 RESPIRATORY CARE TECHNICIAN AM RESPIRATORY CARE TECHNICIAN Impressions MUSE - 11/07/2021 9:10 AM RESPIRATORY CARE TECHNICIAN Marked sinus bradycardia with 1st degree [...] documented as of this encounter Care Teams Computerized Machine Fabric Cutter Relationship Specialty Start Date End Date Shayla Alford D.O. PCP - General Internal Medicine 05/22/20 [address] [place] [phone] documented as of this encounter
--- OUTSIDE RECORDS SUMMARY | 2022-05-27 11:52 | XMS_ITS | Encounter Summary ---
:1945 Author Organization [facility] Address [address] [place] [address] Care Team Providers Name Role Phone Shayla Alford D.O. Primary Care Provider [phone] Reason for Visit Reason Comments Lesion Outpatient (Routine) - Closed Specialty Diagnoses / Procedures Referred By Contact Refer red To Contact Dermatology Diagnoses Lesion Skin Shayla Alford D.O. [facility] Region [address] [place] [phone] Referral ID Status Reason Start Date Expiration Date Visits V isits Requested Authorized [id number] Closed Specialty 09/13/2021 09/13/2022 1 1 Services Required Encounter Details Date Type Department Care Team Description 11/19/2021 Comprehensive Visit Department of Jose Enrique, Phyllis, Hyperpl alberto Dermatology in [facility] C[facility] Sebaceous [place], [place] M.S.N. [address] [facility] [address] [place], [place] [phone] Social History Tobacco Use Types Packs/Day [...] do you attend religion or Never 2021 samaritan services? Do you belong to any clubs or No 10/09/2021 organizations such as religion groups, unions, fraEnforcer eCoaching or athletic groups, or school groups? How [...] completed or the highest Martin, MEd, HAND COKE DRAWER, CAYDEN) degree you have received? Sex Assigned [...] and edited as needed by the provider. EAR PHYSICS TEACHER documented in this encounter Plan of Treatment Not on filedocumented as of this encounter Visit Diagnoses Diagnosis Hyperplasia Sebaceous documented in this encounter Additional Health Concerns Assessment Noted Time PHQ-9 Depression Total Score: 18 04/28/2018 11:27 AM C DT documented as of this encounter Care Teams Fiberglass Boat Builder Relationship Specialty Start Date End Date Shayla Alford D.O. PCP - General Internal Medicine 05/22/[address] [phone] documented as of this encounter
--- OUTSIDE RECORDS SUMMARY | 2022-05-27 11:52 | XMS_ITS | Encounter Summary ---
:1945 Author Organization [facility] Address [address] [place] [address] Care Team Providers Name Role Phone Shayla Alford D.O. Primary Care Provider Reason for Referral Outpatient (Routine) - Authorized Specialty Diagnoses / Procedures Referred By Contact Refer red To Contact Pharmacy Diagnoses Diabetes Mellitus Type 2 With Diabetic Chronic Kidney Disease (HCC) Shayla Salazar [facility] Region D.O. [address] [place] [phone] Referral ID Status Reason Start Date Expiration Date Visits V isits Requested Authorized [id number] Authorized 11/06/2021 11/06/2022 1 1 ER AND TURNER Outpatient (Routine) - Closed Specialty Diagnoses / Procedures Referred By Contact Refer red To Contact Diagnoses Preoperative Exam Shayla Alford [facility] Region Procedures ECG 12 Lead D.O. [address] [place] [phone] Referral ID Status Reason Start Date Expiration Date Visits Requ ested Visits Authorized [id number] Closed 11/06/2021 11/06/2022 1 1 ER AND TURNER Reason for Visit Reason Comments Pre-op Exam 11/14 Dr. 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 [facility] Region [address] [place] [phone] Referral ID Status Reason Start Date Expiration Date Visits Requ ested Visits Authorized [id number] Closed 10/25/2021 10/25/2022 1 1 Encounter Details Date Type Department Care Team Description 11/06/2021 Office Visit Department of [facility] (Congestive) Heart Failure (HCC) (Primary Dx); Internal Medicine in Shayla D. O. 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 Do you [...] have completed or the highest Martin, MEd, CAT BREEDER, CAYDEN) degree you have received? Sex Assigned at Date Recorded Male 05/21/2018 2:34 PM CDT documented as of this encounter H&P Notes Shayla Alford D.O. - 11/06/2021 9:30 AM CST INTERNAL MEDICINE PREOPERATIVE EXAM: DATE OF SERVICE 11/06/2021 LOCATION OF SERVICE [facility] CHIEF COMPLAINT/REASON FOR VISIT Preoperative exam [...] 11/17/2020 showed an EF of 50%, with [id number] mitral valve regurgitation. His blood pressure has [...] was 8. The patient follows with the [facility] where he has a dietitian as well as an technology services manager. Due to worsening kidney function, his metformin [...] discussed this with his provider at the [facility]. He would like a prescription sent in to the [facility] today. We discussed importance of titration of the medication, and ensuring he does not have any hypoglycemia since he is also oninsulin. He assured me that [facility] and that he will be keeping a close eye on his blood glucose level. We are happy to see him for diabetic management here as well in [place]. Hementions that he is required to have [facility] [place] [facility] to be able to have prescription coverage. Otherwise he has no other concerns or issues. Past Medical History: Diagnosis Date ??? Apnea Sleep Obstructive 06/18/2011 intolerant to CPAP therapy ??? Asthma (HCC) 10/16/2009 Pulmonary symptomatology, diagnosis at the [facility] unclear, but probably some degree of COPD. [...] INSERTION INTRAOCULAR LENS Left 04/2008 At the [facility] ??? LASER OF PROSTATE W/ GREEN LIGHT PVP 08/28/2016 Greenlight photoselective vaporization of the prostate and cystoscopy with bladder biopsy and fulguration of a 2cm area; 08/28/[address] Prasanna Bernal at the [facility]. ??? TONSILLECTOMY ??? TONSILLECTOMY 1967 [...] Master's degree (e.g., MA, MS, Martin, MEd, CAT BREEDER, CAYDEN) Occupational History Employer: RETIRED Tobacco Use [...] and Family: Once a week ??? Attends Buddhist Services: Never ??? Active Member of Clubs [...] each 0 ??? flash glucose sensor (FREESTYLE SOFAY) kit 1 each every 14 (fourteen) days. 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 Echocardiogram 11/17/2020 showed an EF of 50%, with [id number] mitral valve regurgitation. His blood pressure has [...] was 8. The patient follows with the [facility] where he has a dietitian as well as an technology services manager. Due to worsening kidney function, his metformin [...] discussed this with his provider at the [facility]. He would like a prescription sent in to the [facility] today. We discussed importance of titration of the medication, and ensuring he does not have any hypoglycemia since he is also oninsulin. He assured me that [facility] and that he will be keeping a close eye on his blood glucose level. We are happy to see him for diabetic management here as well in [place]. 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 11/06/21 9:49 AM FITTER AND TURNER Time spent 58 minutes ER AND TURNER documented in this encounter Plan of Treatment Scheduled Referrals Name Type Priority Associated Order Schedule Diagnoses Pharmacy - Outpatient Referral Routine Diabetes Mellitus Exp ected: Medication therapy Type 2 With 2 management consult Diabetic Chronic (Appr oximate), (clinic) Kidney Disease Expires: (HCC) 02/03/2023 documented as of this encounter Results ECG 12 Lead (11/07/2021 8:40 AM FITTER AND TURNER) P athologist Signature Ventricular Rate 47 BPM MUSE ECG/Min [place] Interval 230 ms MUSE QRSD Interval 112 ms MUSE QT Interval 498 ms MUSE QTC Interval 440 ms MUSE P [place] 87 degrees MUSE R [place] -35 degrees MUSE T Wave [place] 6 degrees MUSE Specimen Anatomical Collection Method Collection Time Receive d Time (Source) Location / / Volume Laterality 11/07/2021 8:40 AM 2 9:10 FITTER AND TURNER AM FITTER AND TURNER Impressions MUSE - 11/07/2021 9:10 AM FITTER AND TURNER Marked sinus bradycardia with 1st degree A-V [...] CBC with Differential, Blood (11/07/2021 8:32 AM FITTER AND TURNER) Patholo gist Method Time Signature Hemoglobin 11.8 (L) 13.2 - 11/07/2021 [place] 16.6 g/dL 8:39 AM FITTER AND TURNER Hematocrit 34.6 (L) 38.3 - 11/07/2021 [place] 48.6 % 8:39 AM FITTER AND TURNER Erythrocytes 3.86 (L) 4.35 - 11/07/2021 [place] 5.65 8:39 AM FITTER AND TURNER x10(12)/L MCV 89.6 78.2 - 11/07/2021 [place] 97.9 fL 8:39 AM FITTER AND TURNER RBC Distrib Width 13.8 11.8 - 11/07/2021 [place] 14.5 % 8:39 AM FITTER AND TURNER Platelet Count 187 135 - 317 11/07/2021 [place] x10(9)/L 8:39 AM FITTER AND TURNER Leukocytes 6.5 3.4 - 9.6 11/07/2021 [place] x10(9)/L 8:39 AM FITTER AND TURNER Neutrophils 4.26 1.56 - 11/07/2021 [place] 6.45 8:39 AM FITTER AND TURNER x10(9)/L Lymphocytes 1.11 0.95 - 11/07/2021 [place] 3.07 8:39 AM FITTER AND TURNER x10(9)/L Monocytes 0.53 0.26 - 11/07/2021 [place] 0.81 8:39 AM FITTER AND TURNER x10(9)/L Eosinophils 0.53 (H) 0.03 - 11/07/2021 [place] 0.48 8:39 AM FITTER AND TURNER x10(9)/L Basophils 0.10 (H) 0.01 - 11/07/2021 [place] 0.08 8:39 AM FITTER AND TURNER x10(9)/L Specimen Anatomical Collection Method Collection Time Receive d Time (Source) Location / / Volume Laterality Blood (Blood, 11/07/2021 8:32 AM 11/07/19 22 8:39 Venous) FITTER AND TURNER AM FITTER AND TURNER Shayla Alford D.O. LAB BLOOD ADD-ON Performing Organization Address City/State/ZIP Code Phon e Number [facility]- [address] [place] [address] [facility] [place] [address] System in [place] [address] (ABNORMAL) Basic Metabolic Panel (11/07/2021 8:32 AM FITTER AND TURNER) Analysis Performed At Patho logist Time Signature Potassium, P 4.0 3.6 - 5.2 11/07/2021 [place] mmol/L 9:12 AM FITTER AND TURNER Sodium, P 138 135 - 145 11/07/2021 [place] mmol/L 9:12 AM FITTER AND TURNER Chloride, P 107 98 - 107 11/07/2021 [place] mmol/L 9:12 AM FITTER AND TURNER Bicarbonate, P 21 (L) 22 - 29 11/07/2021 [place] mmol/L 9:12 AM FITTER AND TURNER Anion Gap, P 10 7 - 15 11/07/2021 [place] 9:12 AM FITTER AND TURNER BUN (Blood Urea 28 (H) 8 - 24 11/07/2021 [place] Nitrogen), P mg/dL 9:12 AM FITTER AND TURNER Creatinine 1.46 (H) 0.74 - 11/07/2021 [place] 1.35 mg/dL 9:12 AM FITTER AND TURNER eGFR-Black/Afri 53 (L) >=60 11/07/2021 [place] can [place] mL/min/BSA 9:12 AM FITTER AND TURNER Comment: ----ADDITIONAL INFORMATION---- Estimated GFR calculated using the 2009 CKD_EPI creatinine equation. eGFR Non-Black/ 45 (L) >=60 mL/min/BSA 11/07/2021 9:12 AM FITTER AND TURNER [place] Comment: ----ADDITIONAL INFORMATION---- Estimated GFR calculated using the 2009 CKD_EPI creatinine equation. Calcium, Total, P 8.8 8.8 - 10.2 mg/dL 11/07/2021 9:12 AM FITTER AND TURNER [place] Glucose, P 157 (H) 70 - 140 mg/dL 11/07/2021 9:12 AM FITTER AND TURNER O MARCK Specimen Anatomical Collection Method Collection Time Receive d Time (Source) Location / / Volume Laterality Blood (Blood, 11/07/2021 8:32 AM 11/07/19 22 8:46 Venous) FITTER AND TURNER AM FITTER AND TURNER Shayla Alford D.O. LAB BLOOD ADD-ON Performing Organization Address City/State/ZIP Code Phon e Number [facility]- [address] [place] [address] [place] [address] System in [place] [address] (ABNORMAL) Hemoglobin A1c (11/07/2021 8:32 AM FITTER AND TURNER) P athologist Signature Hemoglobin A1c, 9.5 (H) 4.2 - 5.6 11/07/2021 [place] B % 8:51 AM FITTER AND TURNER Comment: Hemoglobin A1c values greater than or eq ual to 6.5 percent are diagnostic for diabetes mellitus. ?? Diagnosis should be confirmed by repeat testing. ??In diabet ic patients, HbA1c goals should be discussed with healthcar e provider. Specimen Anatomical Collection Method Collection Time Receive d Time (Source) Location / / Volume Laterality Blood (Blood, 11/07/2021 8:32 AM 11/07/19 8:51 Venous) FITTER AND TURNER AM FITTER AND TURNER Shayla Alford D.O. 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 PCP - General Internal Medicine 05/22/202199 [place] [phone] documented as of this encounter
--- OUTSIDE RECORDS SUMMARY | 2022-05-27 11:52 | XMS_ITS | Encounter Summary ---
:1945 Author Organization [facility] Address [address] [place] [address] Care Team Providers Name Role Phone Shayla Alford D.O. Primary Care Provider Encounter Details Date Type Department Care Team Description 11/07/2021 Hospital Encounter Department of [place] Diabet es Mellitus Type 2 With Diabetic Chronic Kidney Disease (HCC); Laboratory Medicine n, Gianna Mcguire Preoperative Exam in [facility] [address] [address] [place] [phone] Social History Tobacco Use [...] do you attend presybeterian or Never 2021 buddhist services? Do you [...] have completed or the highest Martin, MEd, AGRISCIENCE TEACHER, CAYDEN) degree you have received? Sex [...] (FREESTYLE SOFYA) times a day. Use to [facility] scan Sofya sensor 5 [...] [facility]) torsemide (DEMADEX) 20 Take 1 tablet (20 [...] Shayla Alford D.O. - 11/07/2021 11:24 AM JOB TRAINER Please, call patient following information. Good news, [...] by: Shayla Alford D.O. 11/07/21 11:23 AM JOB TRAINER TRAINER documented in this encounter Plan of Treatment Not on filedocumented as of this encounter Procedures Procedure Name Priority Date/Time Associated Diagnosis Comme nts CBC WITH Routine 11/07/2021 8:32 AM Preoperative Exam Resu lts for this DIFFERENTIAL, B JOB TRAINER procedure ar e in the results section. HEMOGLOBIN A1C, B Routine 11/07/2021 8:32 AM Diabetes Mellitus Results for this JOB TRAINER Type 2 With Diabetic procedu re are in Chronic Kidney the results Disease (HCC) section. BASIC METABOLIC Routine 11/07/2021 8:32 AM Preoperative Exam R esults for this PANEL, S/P JOB TRAINER procedure are i n the results section. documented in this encounter Results (ABNORMAL) CBC with Differential, Blood (11/07/2021 8:32 AM JOB TRAINER) [facility] Method Time Signature Hemoglobin 11.8 (L) 13.2 - 11/07/2021 OWAT 16.6 g/dL 8:39 AM JOB TRAINER Hematocrit 34.6 (L) 38.3 - 11/07/2021 OWAT 48.6 % 8:39 AM JOB TRAINER Erythrocytes 3.86 (L) 4.35 - 11/07/2021 OWAT 5.65 8:39 AM JOB TRAINER x10(12)/L MCV 89.6 78.2 - 11/07/2021 OWAT 97.9 fL 8:39 AM JOB TRAINER RBC Distrib Width 13.8 11.8 - 11/07/2021 OWAT 14.5 % 8:39 AM JOB TRAINER Platelet Count 187 135 - 317 11/07/2021 OWAT x10(9)/L 8:39 AM JOB TRAINER Leukocytes 6.5 3.4 - 9.6 11/07/2021 OWAT x10(9)/L 8:39 AM JOB TRAINER Neutrophils 4.26 1.56 - 11/07/2021 OWAT 6.45 8:39 AM JOB TRAINER x10(9)/L Lymphocytes 1.11 0.95 - 11/07/2021 OWAT 3.07 8:39 AM JOB TRAINER x10(9)/L Monocytes 0.53 0.26 - 11/07/2021 OWAT 0.81 8:39 AM JOB TRAINER x10(9)/L Eosinophils 0.53 (H) 0.03 - 11/07/2021 OWAT 0.48 8:39 AM JOB TRAINER x10(9)/L Basophils 0.10 (H) 0.01 - 11/07/2021 OWAT 0.08 8:39 AM JOB TRAINER x10(9)/L Specimen Anatomical Collection Method Collection Time Receive d Time (Source) Location / / Volume Laterality Blood (Blood, 11/07/2021 8:32 AM 11/07/19 8:39 Venous) JOB TRAINER AM JOB TRAINER Shayla Alford D.O. LAB BLOOD ADD-ON Performing Organization Address City/State/ZIP Code Phon e Number [facility]- [address] [place] [address] [place] [address] System in [place] [address] [facility] (ABNORMAL) Basic Metabolic Panel (11/07/2021 8:32 AM JOB TRAINER) Analysis Performed At Patho logist Time Signature Potassium, P 4.0 3.6 - 5.2 11/07/2021 OWAT mmol/L 9:12 AM JOB TRAINER Sodium, P 138 135 - 145 11/07/2021 OW[place] mmol/L 9:12 AM JOB TRAINER Chloride, P 107 98 - 107 11/07/2021 [place] mmol/L 9:12 AM JOB TRAINER Bicarbonate, P 21 (L) 22 - 29 11/07/2021 OW[place] mmol/L 9:12 AM JOB TRAINER Anion Gap, P 10 7 - 15 11/07/2021 OWAT 9:12 AM JOB TRAINER BUN (Blood Urea 28 (H) 8 - 24 11/07/2021 OWAT Nitrogen), P mg/dL 9:12 AM JOB TRAINER Creatinine 1.46 (H) 0.74 - 11/07/2021 OWAT 1.35 mg/dL 9:12 AM JOB TRAINER eGFR-Black/Afri 53 (L) >=60 11/07/2021 OW[place] can [place] mL/min/BSA 9:12 AM JOB TRAINER Comment: ----ADDITIONAL INFORMATION---- Estimated GFR calculated using the 2009 CKD_EPI creatinine equation. eGFR Non-Black/ 45 (L) >=60 mL/min/BSA 11/07/2021 9:12 AM JOB TRAINER [place] Comment: ----ADDITIONAL INFORMATION---- Estimated GFR calculated using the 2009 CKD_EPI creatinine equation. Calcium, Total, P 8.8 8.8 - 10.2 mg/dL 11/07/2021 9:12 AM JOB TRAINER OW[place] Glucose, P 157 (H) 70 - 140 mg/dL 11/07/2021 9:12 AM JOB TRAINER O MARCK Specimen Anatomical Collection Method Collection Time Receive d Time (Source) Location / / Volume Laterality Blood (Blood, 11/07/2021 8:32 AM 11/07/19 8:46 Venous) JOB TRAINER AM JOB TRAINER Shayla Alford D.O. LAB BLOOD ADD-ON Performing Organization Address City/State/ZIP Code Phon e Number [facility]- [address] [place] [facility] [place] [address] [facility] [place] [address] System in [place] [address] (ABNORMAL) Hemoglobin A1c (11/07/2021 8:32 AM JOB TRAINER) P athologist Signature Hemoglobin A1c, 9.5 (H) 4.2 - 5.6 11/07/2021 OWAT B % 8:51 AM JOB TRAINER Comment: Hemoglobin A1c values greater than or eq ual to 6.5 percent are diagnostic for diabetes mellitus. ?? Diagnosis should be confirmed by repeat testing. ??In diabet ic patients, HbA1c goals should be discussed with healthcar e provider. Specimen Anatomical Collection Method Collection Time Receive d Time (Source) Location / / Volume Laterality Blood (Blood, 11/07/2021 8:32 AM 11/07/19 8:51 Venous) JOB TRAINER AM JOB TRAINER Shayla Alford D.O. LAB BLOOD ADD-ON Performing Organization Address City/State/ZIP Code Phon e Number [facility]- [address] [place] [address] [facility] [place] [facility] [address] System in [place] [address] documented in this encounter Visit Diagnoses Diagnosis Diabetes Mellitus Type 2 With Diabetic C hronic Kidney Disease (HCC) Preoperative Exam documented in this encounter Additional Health Concerns Assessment Noted Time PHQ-9 Depression Total Score: 18 04/28/2018 11:27 AM C DT documented as of this encounter Care Teams Pulverizer Relationship Specialty Start Date End Date Shayla Alford D.O. PCP - General Internal Medicine 05/22/[address] [phone] documented as of this encounter
--- OUTSIDE RECORDS SUMMARY | 2022-05-27 11:52 | XMS_ITS | Encounter Summary ---
:1945 Author Organization [facility] Address [address] [place] [address] Care Team Providers Name Role Phone Shayla Alford D.Sabrina Primary Care Provider Reason for Referral Outpatient (Routine) - Closed Specialty Diagnoses / Procedures Referred By Contact Refer red To Contact Diagnoses Cyst Breast Left Shayla Alford [facility] [place] [facility] Procedures BI Ultrasound Breast Axilla Left D.O. [address] [address] Referral ID Status Reason Start Date Expiration Date Visits Requ ested Visits Authorized [id number] Closed 09/13/2021 09/13/2022 1 1 ING SHAKING SHIPPING Reason for Visit Outpatient (Routine) - Closed Specialty Diagnoses / Procedures Referred By Contact Refer red To Contact Diagnoses Cyst Breast Left Shayla Alford [facility] [place] [facility] Procedures BI Ultrasound Breast Axilla Left D.O. [address] [address] Referral ID Status Reason Start Date Expiration Date Visits Requ ested Visits Authorized [id number] Closed 09/13/2021 09/13/2022 1 1 Encounter Details Date Type Department Care Team Description 10/09/2021 Hospital Encounter Department of Bakkali-Derksen, Cyst Breast Left Radiology in [place] [address] [place] [phone] Social History Tobacco Use Types Packs/Day [...] do you attend nondenominational or Never 2021 amish services? Do you [...] have completed or the highest Martin, MEd, CLIN NURSE, CAYDEN) degree you have received? Sex [...] (FREESTYLE SOFYA) times a day. Use to [facility] [place] Sofya sensor 5 times daily and [...] this BREAST AXILLA LEFT (most inpatients AM TESTING SHAKING SHIPPING proce dure are in and all the results outpatients) section. documented in this encounter Results BI Ultrasound Breast Axilla Left (10/09/2021 10:54 AM TESTING SHAKING SHIPPING) Anatomical Region Laterality Modality Breast, Breast Imaging RST LOS, Breast Imaging FLA LOS Left Ultrasound Specimen (Source) Anatomical Collection Method Collection Time Re ceived Time Location / / Volume Laterality 10/09/2021 10:38 AM TESTING SHAKING SHIPPING Impressions 10/09/2021 10:41 AM TESTING SHAKING SHIPPING 1. ??Left gynecomastia corresponds with lump. 2. ??No mammographic or sonographic find ings of malignancy. RECOMMENDATION: ??Individualized Recomme ndation Recommend management be based on clinica l grounds. ASSESSMENT: ??BI-RADS: 2: Benign. Narrative 10/09/2021 10:41 AM TESTING SHAKING SHIPPING EXAM: ??BI BREAST DIAGNOSTIC BILATERAL WITH TOMOSYNTHESIS, [...] documented as of this encounter Care Teams Printing Sign Machine Operator Relationship Specialty Start Date End Date Shayla Alford D.O. PCP - General Internal Medicine 05/22/[address] [phone] documented as of this encounter
--- OUTSIDE RECORDS SUMMARY | 2022-05-27 11:52 | XMS_ITS | Encounter Summary ---
:1945 Author Organization [facility] Address [address] [place] [address] Care Team Providers Name Role Phone Shayla Alford D.O. Primary Care Provider [phone] Reason for Referral Medication Prior Authorization - Closed Specialty Diagnoses / Procedures Referred By Contact Refer red To Contact Jeison Alford D.O. [address] [place] [phone] Referral ID Status Reason Start Date Expiration Date Visits Requ ested Visits Authorized [id number] Closed 1 1 GER OF BUSINESS OPERATIONS Encounter Details Date Type Department Care Team Description 11/19/2021 Clinical Communication Department of Internal Andrei Dejesus Medicine in [place] D[place]O . [place] [address] [phone] Social History Tobacco Use Types Packs/Day Years [...] do you attend adventist or Never 2021 samaritan services? Do you belong to any clubs or No 10/09/2021 organizations such as adventist groups, unions, fraretsCloud or athletic groups, or school groups? How [...] have completed or the highest Martin, MEd, COMMUNITY ENGAGEMENT SPECIALIST, CAYDEN) degree you have received? Sex Assigned at Date Recorded Male 05/21/2018 2:34 PM CDT documented as of this encounter Miscellaneous Notes Telephone Encounter - Yari Lee, C.M.A. - 11/22/2021 3:18 PM MANAGER OF BUSINESS OPERATIONS Information Discussed Informed patient that ozempic prescription [...] following references were used: provider Dr. Reid GER OF BUSINESS OPERATIONS Telephone Encounter - Anjali Sam - 11/22/2021 3:02 PM CST Patient is calling again to reach a nurse, [phone] GER OF BUSINESS OPERATIONS Telephone Encounter - Chiqui Parham - 11/22/2021 12:25 PM CST Patient called in, returning call to [facility] nurse. Unable to get a hold of a nurse. Please call patientback. GER OF BUSINESS OPERATIONS Telephone Encounter - Yari Lee C.M.Malcolm - 11/20/2021 3:59 PM MANAGER OF BUSINESS OPERATIONS Prescription put on providers desk for signature. GER OF BUSINESS OPERATIONS Telephone Encounter - Shayla Alford D.O. - 11/20/2021 1:53 PM MANAGER OF BUSINESS OPERATIONS DONE Electronically signed by: Shayla Alford D.O. 11/20/21 1:53 PM MANAGER OF BUSINESS OPERATIONS GER OF BUSINESS OPERATIONS Addendum Note - Shayla Alford D.O. - 11/20/2021 1:52 PM MANAGER OF BUSINESS OPERATIONS Addended by: SHAYLA ALFORD on: 11/20/2021 01:52 PM Modules accepted: Orders GER OF BUSINESS OPERATIONS Addendum Note - Jacquie Hamilton, L.P.NMauro - 11/20/2021 12:19 PM MANAGER OF BUSINESS OPERATIONS Addended by: JACQUIE HAIMLTON on: 11/20/2021 12:19 PM Modules accepted: Orders GER OF BUSINESS OPERATIONS Addendum Note - Jacquie Hamilton L.P.NMauro - 11/20/2021 12:13 PM MANAGER OF BUSINESS OPERATIONS Addended by: JACQUIE HAMILTON on: 11/20/2021 12:13 PM Modules accepted: Orders GER OF BUSINESS OPERATIONS Addendum Note - Jacquie Hamilton L.P.N. - 11/20/2021 11:50 AM MANAGER OF BUSINESS OPERATIONS Addended by: JACQUIE HAMILTON on: 11/20/2021 11:50 AM Modules accepted: Orders GER OF BUSINESS OPERATIONS Telephone Encounter - Jacquie Hamilton L.P.N. - 11/20/2021 11:43 AM MANAGER OF BUSINESS OPERATIONS Prescription for medication Ozempic pended as requested and outlined by Dr Reid for approval. Prescriptions to be faxed to patient's [facility] pharmacy to dispense GER OF BUSINESS OPERATIONS Telephone Encounter - Jacquie Hamilton L.P.NMauro - 11/19/2021 8:55 AM MANAGER OF BUSINESS OPERATIONS SUBJECTIVE CHIEF COMPLAINT / REASON FOR CALL No chief complaint on file. Information Discussed Patient here at clinic with document he received from the [place] pharmacy requesting PCP approve and prescribe taper up for medication OZEMPIC. Document placed in pcp mailbox with pcp to write prescriptionthat is to be faxed to the [place] pharmacy and a copy mailed to patient for OZEMPIC PLAN Disposition/Recommendation: notified provider and awaiting recommendations Information/Education: patient/caller able to teach back Caller agreeable to plan of care: yes The following references were used: other per patient GER OF BUSINESS OPERATIONS documented in this encounter Plan of Treatment Not on filedocumented as of this encounter Visit Diagnoses Not on filedocumented in this encounter Additional Health Concerns Assessment Noted Time PHQ-9 Depression Total Score: 18 04/28/2018 11:27 AM C DT documented as of this encounter Care Teams Patent Prosecution Paralegal Relationship Specialty Start Date End Date Shayla Alford D.O. PCP - General Internal Medicine 05/22/[address] [phone] documented as of this encounter
--- OUTSIDE RECORDS SUMMARY | 2022-05-27 11:52 | XMS_ITS | Encounter Summary ---
:1945 Author Organization [facility] Address [address] [place] [address] Care Team Providers Name Role Phone Shayla Alford D.O. Primary Care Provider [phone] Encounter Details Date Type Department Care Team Description 11/11/2021 Lab Department of Prasanna Mcdonnell [facility] [address] ([facility]) [place], [place] [address] [facility] [phone] [place] [address] [phone] Social History Tobacco Use Types Packs/Day Years [...] do you attend synagogue or Never 2021 gnosticist services? Do you [...] have completed or the highest Martin, MEd, COAL MINER, CAYDEN) degree you have received? Sex Assigned at Date Recorded Male 05/21/2018 2:34 PM CDT documented as of this encounter Plan of Treatment Not on filedocumented as of this encounter Procedures Procedure Name Priority Date/Time Associated Diagnosis Comme nts SARS CORONAVIRUS-2 Routine 11/11/2021 8:06 AM Malignant Neopla sm Results for this RNA, V ENTRY LEVEL ASSISTANT MANAGER Of Bladder Posterior procedu re are in Wall (HCC) the results section. documented in this encounter Results SARS Coronavirus-2 RNA, V Asymptomatic (11/11/2021 8:06 AM ENTRY LEVEL ASSISTANT MANAGER) [facility] Method Time Signature SARS-CoV-2 Swab, 11/11/2021 MKTO Specimen Nasopharynx 11:29 PM Source ENTRY LEVEL ASSISTANT MANAGER SARS CoV-2 Undetected Undetected 11/11/2021 MKTO RNA, TMA 11:29 PM ENTRY LEVEL ASSISTANT MANAGER Comment: SARS-CoV-2 RNA absent. This result does not rule out COVID-19 in the patient, as the sensitivity of the test depends o n the timing of the specimen collection and the quality of the specim en. Result should be correlated with patient's history and clinical presentat ion. ----ADDITIONAL INFORMATION---- This molecular amplification test was pe rformed using the Aptima SARS-CoV-2 assay ([employer] on the [place] Sys tem under emergency use authorization (EUA) by the U.S. Food and Drug Administ ration. Fact sheets for this EUA assay can be fo und at the following links: For Healthcare Providers: https://www.fd a.gov/media/021993/download For Patients: https://www.fda.gov/media/ 990251/download Specimen Anatomical Collection Method Collection Time Receive d Time (Source) Location / / Volume Laterality Varies 11/11/2021 8:06 AM 4:32 (Nasopharynx) ENTRY LEVEL ASSISTANT MANAGER PM ENTRY LEVEL ASSISTANT MANAGER Prasanna Bernal M.D. 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 PCP - General Internal Medicine 05/22/[address] [phone] documented as of this encounter
--- OUTSIDE RECORDS SUMMARY | 2022-05-27 11:53 | XMS_ITS | Encounter Summary ---
:1945 Author Organization [facility] Address [address] [place] [address] Care Team Providers Name Role Phone Shayla Alford D.O. 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 [address] [place] [address] Referral ID Status Reason Start Date Expiration Date Visits V isits Requested Authorized [id number] Authorized 09/11/2021 09/11/2022 1 1 TATION INSPECTOR Encounter Details Date Type Department Care Team Description 09/11/2021 Orders Only Department of Urology Grace Rehman, Diabetes Mellitus Type 2 With Diabetic Neuropathy (HCC) (Primary Dx); in FAROOQ Dixon, R.NMauro Diabetes Mellitus Type 2 With Diabetic C hronic Kidney Disease (HCC) [place] [address] [place] [phone] Social History Tobacco Use Types Packs/Day Years [...] do you attend quaker or Never 2021 spiritism services? Do you [...] have completed or the highest Martin, MEd, AUTO BUMPER MECHANIC, CAYDEN) degree you have received? Sex [...] as of this encounter Care Teams Die Engraver Relationship Specialty Start Date End Date Shayla Alford D.O. PCP - General Internal Medicine 05/22/[address] [phone] documented as of this encounter
--- OUTSIDE RECORDS SUMMARY | 2022-05-27 11:53 | XMS_ITS | Encounter Summary ---
:1945 Author Organization [facility] Address [address] [place] [address] Care Team Providers Name Role Phone Shayla Alford D.O. Primary Care Provider [phone] Encounter Details Date Type Department Care Team Description 09/03/2021 Hospital Encounter Department of Cirilo Bernal Neoplasm Of Laboratory Medicine Pato Mims Bladder Lateral Wall in [place], [address] ([facility]) [address] [place] [phone] Social History Tobacco Use Types Packs/Day [...] do you attend faith or Never 2021 hindu services? Do you [...] have completed or the highest Martin, MEd, CURING ROOM SUPERVISOR, CAYDEN) degree you have received? Sex [...] (FREESTYLE SOFYA) times a day. Use to [facility] scan Sofya sensor 5 [...] PEN NEEDLE, DIABETIC Yani Fine 30 0 [facility] disposable needles. For use with Insulin Pens, 4 times daily SYRINGE-NEEDLE,INSULIN,0 0 .5 ML (INSULIN [facility]) traZODone (DESYREL) 100 Take 0.5 tablets (50 [...] Results for this AEROBIC + SUSC, URINE NUCLEAR MEDICINE OFFICER Of Bladder Lateral procedure are in Wall ([facility]) the results section. URINALYSIS WITH Routine 09/03/2021 8:34 AM Malignant Neoplasm Results for this MICROSCOPIC NUCLEAR MEDICINE OFFICER Of Bladder Lateral procedure are in Wall ([facility]) the results section. documented in this encounter Results (ABNORMAL) Bacterial Culture, Aerobic + Susc, Urine (09/03/2021 8:34 AM NUCLEAR MEDICINE OFFICER) Analysis Performed At Patho logist Time Signature Urine Culture Mixed 09/04/2021 MKTO surekha. (A) 1:23 PM NUCLEAR MEDICINE OFFICER Specimen Anatomical Collection Method Collection Time Receive d Time (Source) Location / / Volume Laterality Urine (Urine, 09/03/2021 8:34 AM 09/03/20 21 2:19 Midstream) NUCLEAR MEDICINE OFFICER PM NUCLEAR MEDICINE OFFICER Comment: Specimen Source Site: Urine Prasanna Bernal M.D. LAB MICROBIOLOGY - GENERAL O RDERABLES Performing Organization Address City/State/ZIP Code Phon e Number [facility]- [facility] [place] [address] [place] [address] System in [place] [address] [place] [address] (ABNORMAL) Urinalysis with Microscopic: Urine, Midstream (09/03/2021 8:34 AM NUCLEAR MEDICINE OFFICER) Analysis Performed At Patho logist Time Signature Source Urine, Urine, 09/03/2021 FB60 Midstream 8:49 AM NUCLEAR MEDICINE OFFICER Clarity Clear Clear 09/03/2021 FB60 8:57 AM NUCLEAR MEDICINE OFFICER Color Yellow 09/03/2021 FB60 8:57 AM NUCLEAR MEDICINE OFFICER Comment: ----REFERENCE VALUE---- Colorless Yellow Mitra Blood Trace (A) Negative 09/03/2021 8:57 AM NUCLEAR MEDICINE OFFICER FB60 Nitrite Negative Negative 09/03/2021 8:57 AM NUCLEAR MEDICINE OFFICER FB60 Leukocyte Esterase Negative Negative 09/03/2021 8:57 AM CS T FB60 Protein Negative mg/dL 09/03/2021 8:57 AM NUCLEAR MEDICINE OFFICER FB60 Comment: ----REFERENCE VALUE---- Negative Trace Glucose >=1000 (A) Negative mg/dL 09/03/2021 8:57 AM NUCLEAR MEDICINE OFFICER F B60 Ketones, QI(U) Negative Negative mg/dL 09/03/2021 8:[address] FB60 Bilirubin Negative Negative 09/03/2021 8:57 AM NUCLEAR MEDICINE OFFICER FB60 pH 5.5 5.0 - 8.0 09/03/2021 8:57 AM NUCLEAR MEDICINE OFFICER FB60 Specific [place] 1.010 1.001 - 1.035 09/03/2021 8:57 AM NUCLEAR MEDICINE OFFICER FB60 Urobilinogen 0.2 0.2 - 1.0 mg/dL 09/03/2021 8:57 AM CS T FB60 White Blood Cells 4-10 (A) /hpf 09/03/2021 9:13 AM NUCLEAR MEDICINE OFFICER FB60 Comment: ----REFERENCE VALUE---- Males: 0-3 Females: 0-10 Unknown: 0-10 Red Blood Cells Occ-2 0 - 2 /hpf 09/03/2021 9:13 AM NUCLEAR MEDICINE OFFICER FB60 Specimen Anatomical Collection Method Collection Time Receive d Time (Source) Location / / Volume Laterality Urine (Urine, 09/03/2021 8:34 AM 09/03/20 8:49 Midstream) NUCLEAR MEDICINE OFFICER AM NUCLEAR MEDICINE OFFICER Prasanna Bernal M.D. LAB URINE ORDERABLES Performing Organization Address City/State/ZIP Code Phon e Number [facility]- [address] [place] [address] [facility] [address] [place] [address] System in [place] [address] documented in this encounter Visit Diagnoses Diagnosis 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 (HCC) documented in this encounter Additional Health Concerns Assessment Noted Time PHQ-9 Depression Total Score: 18 04/28/2018 11:27 AM C DT documented as of this encounter Care Teams Lumber Carrier Operator Relationship Specialty Start Date End Date Shayla Alford D.O. PCP - General Internal Medicine 05/22/20 [address] [place] [phone] documented as of this encounter
--- OUTSIDE RECORDS SUMMARY | 2022-05-27 11:53 | XMS_ITS | Encounter Summary ---
:1945 Author Organization [facility] Address [address] [place] [address] Care Team Providers Name Role Phone Shayla Alford D.O. Primary Care Provider [phone] Encounter Details Date Type Department Care Team Description 09/17/2021 Hospital Encounter Department of Cirilo Bernal Neoplasm Of Laboratory Medicine Pato Mims Bladder Lateral Wall in [place], [address] ([facility]) [address] [place] [phone] Social History Tobacco Use Types Packs/Day [...] do you attend denominational or Never 2021 yazidism services? Do you [...] have completed or the highest Martin, MEd, DRY BOSS, CAYDEN) degree you have received? Sex Assigned [...] (FREESTYLE SOFYA) times a day. Use to [facility] scan Sofya sensor 5 times [...] PEN NEEDLE, DIABETIC Yani Fine 30 0 [facility] disposable needles. For use with Insulin Pens, 4 times daily SYRINGE-NEEDLE,INSULIN,0 0 .5 ML (INSULIN SYRINGE [facility]) traZODone (DESYREL) 100 Take 0.5 tablets (50 [...] Results for this AEROBIC + SUSC, URINE BOILER TESTING TECHNICIAN Of Bladder Lateral procedure are in Wall ([facility]) the results section. URINALYSIS WITH Routine 09/17/2021 9:01 AM Malignant Neoplasm Results for this MICROSCOPIC BOILER TESTING TECHNICIAN Of Bladder Lateral procedure are in Wall ([facility]) the results section. documented in this encounter Results (ABNORMAL) Bacterial Culture, Aerobic + Susc, Urine (09/17/2021 9:01 AM BOILER TESTING TECHNICIAN) Analysis Performed At Patho logist Time Signature Urine Culture Mixed 09/18/2021 MKTO surekha. (A) 9:23 AM BOILER TESTING TECHNICIAN Specimen Anatomical Collection Method Collection Time Receive d Time (Source) Location / / Volume Laterality Urine (Urine, 09/17/2021 9:01 AM 09/17/20 2:06 Midstream) BOILER TESTING TECHNICIAN PM BOILER TESTING TECHNICIAN Comment: Specimen Source Site: Urine Prasanna Bernal M.D. LAB MICROBIOLOGY - GENERAL O RDERABLES Performing Organization Address City/State/ZIP Code Phon e Number [facility] [place] [address] [place] [address] System [place] [address] [place] [address] (ABNORMAL) Urinalysis with Microscopic: Urine, Midstream (09/17/2021 9:01 AM BOILER TESTING TECHNICIAN) Analysis Performed At Patho logist Time Signature Source Urine, Urine, 09/17/2021 FB60 Midstream 9:02 AM BOILER TESTING TECHNICIAN Clarity Clear Clear 09/17/2021 FB60 9:10 AM BOILER TESTING TECHNICIAN Color Yellow 09/17/2021 FB60 9:10 AM BOILER TESTING TECHNICIAN Comment: ----REFERENCE VALUE---- Colorless Yellow Mitra Blood Moderate (A) Negative 09/17/2021 9:10 AM BOILER TESTING TECHNICIAN FB60 Nitrite Negative Negative 09/17/2021 9:10 AM BOILER TESTING TECHNICIAN FB60 Leukocyte Esterase Negative Negative 09/17/2021 9:10 AM CS T FB60 Protein 100 (A) mg/dL 09/17/2021 9:10 AM BOILER TESTING TECHNICIAN FB60 Comment: ----REFERENCE VALUE---- Negative Trace Glucose >=1000 (A) Negative mg/dL 09/17/2021 9:10 AM BOILER TESTING TECHNICIAN F B60 Ketones, QI(U) Negative Negative mg/dL 09/17/2021 9:[address] FB60 Bilirubin Negative Negative 09/17/2021 9:10 AM BOILER TESTING TECHNICIAN FB60 pH 5.5 5.0 - 8.0 09/17/2021 9:10 AM BOILER TESTING TECHNICIAN FB60 Specific [place] 1.015 1.001 - 1.035 09/17/2021 9:10 AM BOILER TESTING TECHNICIAN FB60 Urobilinogen 0.2 0.2 - 1.0 mg/dL 09/17/2021 9:10 AM CS T FB60 White Blood Cells 4-10 (A) /hpf 09/17/2021 9:25 AM BOILER TESTING TECHNICIAN FB60 Comment: ----REFERENCE VALUE---- Males: 0-3 Females: 0-10 Unknown: 0-10 Red Blood Cells 3-10 (A) 0 - 2 /hpf 09/17/2021 9:25 AM BOILER TESTING TECHNICIAN FB60 Dysmorphic Red Blood Cells <=25 <=25 % 09/17/2021 9: 25 AM BOILER TESTING TECHNICIAN FB60 Specimen Anatomical Collection Method Collection Time Receive d Time (Source) Location / / Volume Laterality Urine (Urine, 09/17/2021 9:01 AM 12/20/20 21 9:01 Midstream) BOILER TESTING TECHNICIAN AM BOILER TESTING TECHNICIAN Prasanna Bernal M.D. LAB URINE ORDERABLES Performing Organization Address City/State/ZIP Code Phon e Number [place] [address] [place] [address] [facility] [address] [place] [address] System in [place] [address] documented in this encounter Visit Diagnoses Diagnosis 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 (HCC) documented in this encounter Additional Health Concerns Assessment Noted Time PHQ-9 Depression Total Score: 18 04/28/2018 11:27 AM C DT documented as of this encounter Care Teams Acoustical Engineer Relationship Specialty Start Date End Date Shayla Alford D.O. PCP - General Internal Medicine 05/22/[address] [place] [phone] documented as of this encounter
--- OUTSIDE RECORDS SUMMARY | 2022-05-27 11:53 | XMS_ITS | Encounter Summary ---
:1945 Author Organization [facility] Address [address] [place] [address] Care Team Providers Name Role Phone Shayla Alford D.O. Primary Care Provider [phone] Reason for Visit Appointment Request (Routine) - Closed Specialty Diagnoses / Procedures Referred By Contact Refer red To Contact Urology Referral ID Status Reason Start Date Expiration Date Visits Requ ested Visits Authorized [id number] Closed 07/23/2021 07/23/2022 1 1 Encounter Details Date Type Department Care Team Description 09/19/2021 Nurse Only Department of Urology in [facility] [place], [place] [address] [place] [phone] Social History Tobacco Use Types Packs/Day Years [...] do you attend muslim or Never 2021 spiritism services? Do you [...] have completed or the highest Martin, MEd, STITCHER FEEDER, CAYDEN) degree you have received? Sex [...] scheduled for the cystoscopy. Lea Morin R.N. ESSOGRAPH OPERATOR documented in this encounter Plan of [...] 0.9% 50 mL Given 09/19/2021 10:35 AM ADDRESSOGRAPH OPERATOR 50 mg bladder instillation (JUANY BCG) 50 [...] as of this encounter Care Teams Information Systems Security Developer Relationship Specialty Start Date End Date Shayla Alford D.O. PCP - General Internal Medicine 05/22/[address] [phone] documented as of this encounter
--- OUTSIDE RECORDS SUMMARY | 2022-05-27 11:53 | XMS_ITS | Encounter Summary ---
:1945 Author Organization [facility] Address [address] [place] [address] Care Team Providers Name Role Phone Shayla Alford D.O. Primary Care Provider [phone] Reason for Referral Outpatient (Routine) - Closed Specialty Diagnoses / Procedures Referred By Contact Refer red To Contact Community Internal Diagnoses Preoperative Exam ARMAAN Alford [facility] Tulio Mcguire [address] [place] [phone] Referral ID Status Reason Start Date Expiration Date Visits Requ ested Visits Authorized [id number] Closed 09/13/2021 09/13/2022 1 1 PROOFER Outpatient (Routine) - Closed Specialty Diagnoses / Procedures Referred By Contact Refer red To Contact Dermatology Diagnoses Lesion Skin Shayla Alford D.O. [facility] [address] [place] [phone] Referral ID Status Reason Start Date Expiration Date Visits V isits Requested Authorized [id number] Closed Specialty 09/13/2021 09/13/2022 1 1 Services Required PROOFER Outpatient (Routine) - Closed Specialty Diagnoses / Procedures Referred By Contact Refer red To Contact Diagnoses Cyst Breast Left Shayla Alford [facility] [place] [facility] Procedures BI Ultrasound Breast Axilla Left D.O. [address], [place] [phone] Referral ID Status Reason Start Date Expiration Date Visits Requ ested Visits Authorized [id number] Closed 09/13/2021 09/13/2022 1 1 PROOFER Reason for Visit Reason Comments Pre-op Exam Colonoscopy-DOS Unknown. 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 Chronic Kidney Disease (CKD), Stage 3b G lomerular Filtration Rate (GFR) 30 To 44 (HCC); [place] [address] [place] [address] Hypothyroidism; [address] [place], [place] Cyst Breast Left; [place] [address] Lesion Skin; [phone] Preoperative Exam Social History [...] do you attend jewish or Never 2021 congregation services? Do you belong to any clubs or No 10/09/2021 organizations such as jewish groups, unions, [place] or athletic groups, or school groups? How [...] have completed or the highest Martin, MEd, INTERNATIONAL LOGISTICS COORDINATOR, CAYDEN) degree you have received? Sex Assigned at Date Recorded Male 05/21/2018 2:34 PM CDT documented as of this encounter Last Filed Vital Signs Vital Sign Reading Time Taken Comments Blood Pressure 120/62 09/13/2021 10:59 AM RUST PROOFER Pulse 60 09/13/2021 10:59 AM RUST PROOFER Temperature 36.3 ??C (97.4 ??F) 09/13/2021 10:59 AM RUST PROOFER Respiratory Rate - - Oxygen Saturation - - Inhaled Oxygen Concentration - - Weight 99.9 kg (220 lb 3.8 oz) 09/13/2021 10:59 AM RUST PROOFER Height 190.5 cm (6' 3) 09/13/2021 10:59 AM RUST PROOFER Body Mass Index 27.53 09/13/2021 10:59 AM RUST PROOFER documented in this encounter H&P Notes Shayla [...] increased fatigue. He is followed locally in [facility] urology clinic. He does have a repeat [...] him today. He is managed through the [place] for his diabetes and awaiting the [employer] monitoring system. He has done well on [...] [place] for [place] and awaiting the [employer] monitoring system. He has done well on [...] visit (clinic); Future; Expected date: 10/14/2021 - [facility] Internal Medicine office visit (clinic); Future; Expected date: 10/14/2021 Other orders - [facility] Internal Medicine office visit (clinic) Symptoms: if [...] by: Shayla Alford D.O. 10/05/21 2:47 PM RUST PROOFER Time spent 32 minutes PROOFER documented in this encounter Plan of Treatment [...] Ultrasound Breast Axilla Left (10/09/2021 10:54 AM RUST PROOFER) Anatomical Region Laterality Modality Breast, Breast Imaging RST LOS, Breast Imaging [facility] Left Ultrasound Specimen (Source) Anatomical Collection Method Collection Time Re ceived Time Location / / Volume Laterality 10/09/2021 10:38 AM RUST PROOFER Impressions 10/09/2021 10:41 AM RUST PROOFER 1. ??Left gynecomastia corresponds with lump. 2. ??No mammographic or sonographic find ings of malignancy. RECOMMENDATION: ??Individualized Recomme ndation Recommend management be based on clinica l grounds. ASSESSMENT: ??BI-RADS: 2: Benign. Narrative 10/09/2021 10:41 AM RUST PROOFER EXAM: ??BI BREAST DIAGNOSTIC BILATERAL WITH TOMOSYNTHESIS, [...] documented as of this encounter Care Teams Roadway Engineer Relationship Specialty Start Date End Date Shayla Alford D.O. PCP - General Internal Medicine 05/22/20 [address] [place] [phone] documented as of this encounter
--- OUTSIDE RECORDS SUMMARY | 2022-05-27 11:53 | XMS_ITS | Encounter Summary ---
:1945 Author Organization [facility] Address [address] [place] [address] Care Team Providers Name Role Phone Shayla Alford D.O. Primary Care Provider [phone] Encounter Details Date Type Department Care Team Description 08/20/2021 Hospital Encounter Department of Cirilo Bernal Neoplasm Of Laboratory Medicine Pato Mims Bladder Lateral Wall in [place], [address] ([facility]) [address] [place] [phone] Social History Tobacco Use Types Packs/Day [...] do you attend protestant or Never 2021 advent services? Do you [...] completed or the highest Martin, MEd, MARINE ERECTOR, CAYDEN) degree you have received? Sex Assigned [...] SOFYA) times a day. Use to [facility] scan Sofya sensor 5 [...] SYRINGE [facility]) traZODone (DESYREL) 100 Take 0.5 tablets (50 [...] bedtime. injectionIndications: Diabetes Mellitus Type 2 Hyperglycemia ([facility]) lisinopriL Take 1 tablet by 0 [...] Results for this AEROBIC + SUSC, URINE IMPLEMENTATION SPECIALIST Of Bladder Lateral procedure are in Wall ([facility]) the results section. URINALYSIS WITH Routine 08/20/2021 8:19 AM Malignant Neoplasm Results for this MICROSCOPIC IMPLEMENTATION SPECIALIST Of Bladder Lateral procedure are in Wall ([facility]) the results section. documented in this encounter Results (ABNORMAL) Bacterial Culture, Aerobic + Susc, Urine (08/20/2021 8:19 AM IMPLEMENTATION SPECIALIST) Analysis Performed At [facility] Urine Culture Mixed 08/21/2021 [facility] surekha. (A) 10:32 AM IMPLEMENTATION SPECIALIST Specimen Anatomical Collection Method Collection Time Receive d Time (Source) Location / / Volume Laterality Urine (Urine, 08/20/2021 8:19 AM 08/20/20 2:13 Midstream) IMPLEMENTATION SPECIALIST PM IMPLEMENTATION SPECIALIST Comment: Specimen Source Site: Urine Prasanna Bernal M.D. LAB MICROBIOLOGY - GENERAL O RDERABLES Performing Organization Address City/State/ZIP Code Phon e Number [facility] [address] [place] [address] [place] [address] (ABNORMAL) Urinalysis with Microscopic: Urine, Midstream (08/20/2021 8:19 AM IMPLEMENTATION SPECIALIST) Analysis Performed At [facility] Signature Source Urine, Urine, 08/20/2021 FB60 Midstream 8:47 AM IMPLEMENTATION SPECIALIST Clarity Clear Clear 08/20/2021 FB60 9:04 AM IMPLEMENTATION SPECIALIST Color Yellow 08/20/2021 FB60 9:04 AM IMPLEMENTATION SPECIALIST Comment: ----REFERENCE VALUE---- Colorless Yellow Mitra Blood Small (A) Negative 08/20/2021 9:04 AM IMPLEMENTATION SPECIALIST FB60 Nitrite Negative Negative 08/20/2021 9:04 AM IMPLEMENTATION SPECIALIST FB60 Leukocyte Esterase Negative Negative 08/20/2021 9:04 AM CS T FB60 Protein Negative mg/dL 08/20/2021 9:04 AM IMPLEMENTATION SPECIALIST FB60 Comment: ----REFERENCE VALUE---- Negative Trace Glucose >=1000 (A) Negative mg/dL 08/20/2021 9:04 AM IMPLEMENTATION SPECIALIST F B60 Ketones, QI(U) Negative Negative mg/dL 08/20/2021 9:[address] FB60 Bilirubin Negative Negative 08/20/2021 9:04 AM IMPLEMENTATION SPECIALIST FB60 pH 5.5 5.0 - 8.0 08/20/2021 9:04 AM IMPLEMENTATION SPECIALIST FB60 Specific [place] 1.010 1.001 - 1.035 08/20/2021 9:04 AM IMPLEMENTATION SPECIALIST FB60 Urobilinogen 0.2 0.2 - 1.0 mg/dL 08/20/2021 9:04 AM CS T FB60 White Blood Cells 11-20 (A) /hpf 08/20/2021 9:04 AM IMPLEMENTATION SPECIALIST FB60 Comment: ----REFERENCE VALUE---- Males: 0-3 Females: 0-10 Unknown: 0-10 Red Blood Cells Occ-2 0 - 2 /hpf 08/20/2021 9:04 AM IMPLEMENTATION SPECIALIST FB60 Dysmorphic Red Blood Cells <=25 <=25 % 08/20/2021 9: 04 AM IMPLEMENTATION SPECIALIST FB60 Squamous Cells Occ-3 /hpf 08/20/2021 9:04 AM IMPLEMENTATION SPECIALIST FB 60 Specimen Anatomical Collection Method Collection Time Receive d Time (Source) Location / / Volume Laterality Urine (Urine, 08/20/2021 8:19 AM 08/20/20 8:47 Midstream) IMPLEMENTATION SPECIALIST AM IMPLEMENTATION SPECIALIST Prasanna Bernal M.D. 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 PCP - General Internal Medicine 05/22/[address] [phone] documented as of this encounter
--- OUTSIDE RECORDS SUMMARY | 2022-05-27 11:53 | XMS_ITS | Encounter Summary ---
:1945 Author Organization [facility] Address [address] [place] [address] Care Team Providers Name Role Phone Shayla Alford D.O. Primary Care Provider [phone] Reason for Visit Appointment Request (Routine) - Closed Specialty Diagnoses / Procedures Referred By Contact Refer red To Contact Urology Referral ID Status Reason Start Date Expiration Date Visits Requ ested Visits Authorized [id number] Closed 07/23/2021 07/23/2022 1 1 Encounter Details Date Type Department Care Team Description 09/05/2021 Nurse Only Department of Urology in [facility] [place], [place] [address] [place] [phone] Social History Tobacco Use Types Packs/Day Years [...] do you attend muslim or Never 2021 druze services? Do you [...] have completed or the highest Martin, MEd, TEST AND BALANCE ENGINEER, CAYDEN) degree you have received? Sex Assigned at Date Recorded Male 05/21/2018 2:34 PM CDT documented as of this encounter Last Filed Vital Signs Vital Sign Reading Time Taken Comments Blood Pressure - - Pulse - - Temperature 36.6 ??C (97.8 ??F) 09/05/2021 9:53 AM WEATHER TEACHER Respiratory Rate 18 09/05/2021 9:53 AM WEATHER TEACHER Oxygen Saturation - - Inhaled Oxygen Concentration [...] the next BCG treatment. Lea Morin R.N. HER TEACHER documented in this encounter Plan of [...] 0.9% 50 mL Given 09/05/2021 9:57 AM WEATHER TEACHER 5 0 mg bladder instillation (JUANY BCG) [...] documented as of this encounter Care Teams Collar Setter Overlock Relationship Specialty Start Date End Date Shayla Alford D.O. PCP - General Internal Medicine 05/22/20 [address] [place] [phone] documented as of this encounter
--- OUTSIDE RECORDS SUMMARY | 2022-05-27 11:53 | XMS_ITS | Encounter Summary ---
:1945 Author Organization [facility] Address [address] [place] [address] Care Team Providers Name Role Phone Shayla Alford D.O. Primary Care Provider [phone] Encounter Details Date Type Department Care Team Description 09/10/2021 Hospital Encounter Department of Cirilo Bernal Neoplasm Of Laboratory Medicine Pato Mims Bladder Lateral Wall in [place], [address] ([facility]) [address] [place] [phone] Social History Tobacco Use Types Packs/Day [...] do you attend anabaptist or Never 2021 baptist services? Do you [...] have completed or the highest Martin, MEd, ROPING TENDER, CAYDEN) degree you have received? Sex [...] PEN NEEDLE, DIABETIC Yani Fine 30 0 [facility] disposable needles. For use with Insulin Pens, 4 times daily SYRINGE-NEEDLE,INSULIN,0 0 .5 ML (INSULIN SYRINGE [facility]) traZODone (DESYREL) 100 Take 0.5 tablets (50 [...] Results for this AEROBIC + SUSC, URINE NEW ACCOUNTS CLERK Of Bladder Lateral procedure are in Wall ([facility]) the results section. URINALYSIS WITH Routine 09/10/2021 8:27 AM Malignant Neoplasm Results for this MICROSCOPIC NEW ACCOUNTS CLERK Of Bladder Lateral procedure are in Wall ([facility]) the results section. documented in this encounter Results (ABNORMAL) Bacterial Culture, Aerobic + Susc, Urine (09/10/2021 8:27 AM NEW ACCOUNTS CLERK) Analysis Performed At Patho logist Time Signature Urine Culture Mixed 09/11/2021 [facility] surekha. (A) 1:04 PM NEW ACCOUNTS CLERK Specimen Anatomical Collection Method Collection Time Receive d Time (Source) Location / / Volume Laterality Urine (Urine, 09/10/2021 8:27 AM 09/10/20 21 3:35 Midstream) NEW ACCOUNTS CLERK PM NEW ACCOUNTS CLERK Comment: Specimen Source Site: Urine Mid stream Prasanna Bernal M.D. LAB MICROBIOLOGY - GENERAL O RDERABLES Performing Organization Address City/State/ZIP Code Phon e Number [facility]- [address] [place] [address] [place] [address] System in [place] [address] [facility] (ABNORMAL) Urinalysis with Microscopic: Urine, Midstream (09/10/2021 8:27 AM NEW ACCOUNTS CLERK) Analysis [facility] At [facility] Time Signature Source Urine, Urine, 09/10/2021 FB60 Midstream 8:44 AM NEW ACCOUNTS CLERK Clarity Clear Clear 09/10/2021 FB60 8:58 AM NEW ACCOUNTS CLERK Color Yellow 09/10/2021 FB60 8:58 AM NEW ACCOUNTS CLERK Comment: ----REFERENCE VALUE---- Colorless Yellow Mitra Blood Small (A) Negative 09/10/2021 8:58 AM NEW ACCOUNTS CLERK FB60 Nitrite Negative Negative 09/10/2021 8:58 AM NEW ACCOUNTS CLERK FB60 Leukocyte Esterase Trace (A) Negative 09/10/2021 8:58 AM CS T FB60 Protein Negative mg/dL 09/10/2021 8:58 AM NEW ACCOUNTS CLERK FB60 Comment: ----REFERENCE VALUE---- Negative Trace Glucose >=1000 (A) Negative mg/dL 09/10/2021 8:58 AM NEW ACCOUNTS CLERK F B60 Ketones, QI(U) Negative Negative mg/dL 09/10/2021 8:[address] FB60 Bilirubin Negative Negative 09/10/2021 8:58 AM NEW ACCOUNTS CLERK FB60 pH 5.5 5.0 - 8.0 09/10/2021 8:58 AM NEW ACCOUNTS CLERK FB60 Specific [place] 1.015 1.001 - 1.035 09/10/2021 8:58 AM NEW ACCOUNTS CLERK FB60 Urobilinogen 0.2 0.2 - 1.0 mg/dL 09/10/2021 8:58 AM CS T FB60 White Blood Cells 4-10 (A) /hpf 09/10/2021 9:00 AM NEW ACCOUNTS CLERK FB60 Comment: ----REFERENCE VALUE---- Males: 0-3 Females: 0-10 Unknown: 0-10 Red Blood Cells None Seen 0 - 2 /hpf 09/10/2021 9:00 AM NEW ACCOUNTS CLERK FB60 Specimen Anatomical Collection Method Collection Time Receive d Time (Source) Location / / Volume Laterality Urine (Urine, 09/10/2021 8:27 AM 09/10/20 8:44 Midstream) NEW ACCOUNTS CLERK AM NEW ACCOUNTS CLERK Prasanna Bernal M.D. 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 PCP - General Internal Medicine 05/22/20 [address] [place] [phone] documented as of this encounter
--- OUTSIDE RECORDS SUMMARY | 2022-05-27 11:53 | XMS_ITS | Encounter Summary ---
:1945 Author Organization [facility] Address [address] [place] [address] Care Team Providers Name Role Phone Shayla Alford D.O. Primary Care Provider [phone] Reason for Visit Reason Comments Nurse Visit Bladder Cancer Appointment Request (Routine) - Closed Specialty Diagnoses / Procedures Referred By Contact Refer red To Contact Urology Referral ID Status Reason Start Date Expiration Date Visits Requ ested Visits Authorized [id number] Closed 07/23/2021 07/23/2022 1 1 Encounter Details Date Type Department Care Team Description 09/12/2021 Nurse Only Department of Urology Lea Morin Nu rse Visit; Bladder in Alicia Dixon suman R.N. Cancer [address] [place] [address] [address] [place], [place] [phone] Social History Tobacco Use Types Packs/Day Years [...] do you attend taoism or Never 2021 islam services? Do you [...] completed or the highest Martin, MEd, SENIOR BRANCH MANAGER, CAYDEN) degree you have received? Sex Assigned at Date Recorded Male 05/21/2018 2:34 PM CDT documented as of this encounter Last Filed Vital Signs Vital Sign Reading Time Taken Comments Blood Pressure - - Pulse - - Temperature 36.4 ??C (97.6 ??F) 09/12/2021 9:21 AM POLE FRAMER MACHINE Respiratory Rate - - Oxygen Saturation - [...] the next BCG treatment. Lea Morin R.N. FRAMER MACHINE documented in this encounter Plan of Treatment [...] 0.9% 50 mL Given 09/12/2021 9:22 AM POLE FRAMER MACHINE 5 0 mg bladder instillation (JUANY BCG) [...] documented as of this encounter Care Teams Kosher Sealer Relationship Specialty Start Date End Date Shayla Alford D.O. PCP - General Internal Medicine 05/22/[address] [place] [phone] documented as of this encounter
--- OUTSIDE RECORDS SUMMARY | 2022-05-27 11:53 | XMS_ITS | Encounter Summary ---
:1945 Author Organization [facility] Address [address] [place] [address] Care Team Providers Name Role Phone Shayla Alford D.O. Primary Care Provider Reason for Visit Reason Comments Nurse Visit Bladder Cancer Appointment Request (Routine) - Closed Specialty Diagnoses / Procedures Referred By Contact Refer red To Contact Urology Referral ID Status Reason Start Date Expiration Date Visits Requ ested Visits Authorized [id number] Closed 07/23/2021 07/23/2022 1 1 Encounter Details Date Type Department Care Team Description 08/29/2021 Nurse Only Department of Urology Lea Morin Nu rse Visit; Bladder in Alicia Dixonkarissa will R.N. Cancer [address] [place] [address] [place], [place] [phone] Social History Tobacco Use Types Packs/Day Years [...] do you attend jew or Never 2021 shinto services? Do you [...] completed or the highest Martin, MEd, TOOL AND DIE TECHNICIAN, CAYDEN) degree you have received? Sex Assigned at Date Recorded Male 05/21/2018 2:34 PM CDT documented as of this encounter Last Filed Vital Signs Vital Sign Reading Time Taken Comments Blood Pressure - - Pulse 51 08/29/2021 10:34 AM DRYING UNIT FELTING MACHINE OPERATOR Temperature - - Respiratory Rate - - Oxygen Saturation 95% 08/29/2021 10:34 AM DRYING UNIT FELTING MACHINE OPERATOR room a ir Inhaled Oxygen Concentration - [...] the next BCG treatment. Lea Morin R.N. NG UNIT FELTING MACHINE OPERATOR documented in this encounter Plan [...] 0.9% 50 mL Given 08/29/2021 10:37 AM DRYING UNIT FELTING MACHINE OPERATOR 50 mg bladder instillation (JUANY BCG) [...] documented as of this encounter Care Teams Daycare Teacher Relationship Specialty Start Date End Date Shayla Alford D.O. PCP - General Internal Medicine 05/22/[address] [phone] documented as of this encounter
--- OUTSIDE RECORDS SUMMARY | 2022-05-27 11:53 | XMS_ITS | Encounter Summary ---
:1945 Author Organization [facility] Address [address] [place] [address] Care Team Providers Name Role Phone Shayla Alford D.O. Primary Care Provider [phone] Reason for Referral Outpatient (Routine) - Closed Specialty Diagnoses / Procedures Referred By Contact Refer red To Contact [facility] Internal ARMAAN Alford SE, D.O. [address] [place] [phone] Referral ID Status Reason Start Date Expiration Date Visits Requ ested Visits Authorized [id number] Closed 07/31/2021 07/31/2022 1 1 Scheduling Instructions Please schedule one hour to address preo p colonoscopy , diabetes , bladder cancer , and asthma Reason for Visit Reason Comments Heart Failure CKD, Diabetes Mellitus Outpatient (Routine) - Closed Specialty Diagnoses / Procedures Referred By Contact Refer red To Contact [facility] Internal ARMAAN Alford SE, D.O. [address] [place] [phone] Referral ID Status Reason Start Date Expiration Date Visits Requ ested Visits Authorized [id number] Closed 06/19/2021 06/19/2022 1 1 Encounter Details Date Type Department Care Team Description 07/31/2021 Office Visit Department of Internal Selvin Alford ypertension Essential Primary (Primary Dx); [place] 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 Do you [...] completed or the highest Martin, MEd, SAND CONDITIONER, CAYDEN) degree you have received? Sex Assigned [...] him today. [facility] [place] where he sees an construction controller. He states that his glucose this morning [...] The patient has a scheduled trip to [address] [place] [address]. We discussed the importance of following his [...] him today. He is followed [place] the [place] where he sees an construction controller. He states that his glucose this morning [...] patient has a scheduled trip to [facility]. We discussed the importance of following his [...] by: Shayla Alford D.O. 08/07/21 7:17 PM PRINCIPAL SYSTEMS ENGINEER CIPAL SYSTEMS ENGINEER documented in this encounter Plan of Treatment Scheduled Orders Name Type Priority Associated Diagnoses Order S chedule Hemoglobin A1c Lab Routine Diabetes Mellitus Type 2 W ith Expected: 10/31/2021 Diabetic Chronic Kidney (Brenda roximate), Expires: Disease (HCC) 07/31/2022 Scheduled Referrals Name Type Priority Associated Diagnoses [facility] Referral Routine Ex [...] as of this encounter Care Teams Paper Box Cutter Relationship Specialty Start Date End Date Shayla Alford D.O. PCP - General Internal Medicine 05/22/202[address] [phone] documented as of this encounter
--- OUTSIDE RECORDS SUMMARY | 2022-05-27 11:53 | XMS_ITS | Encounter Summary ---
:1945 Author Organization [facility] Address [address] [place] [address] Care Team Providers Name Role Phone Shayla Alford D.O. Primary Care Provider [phone] Encounter Details Date Type Department Care Team Description 08/13/2021 Hospital Encounter Department of Cirilo Benral Neoplasm Of Laboratory Medicine Pato Mims Bladder Lateral Wall in [place], [address] ([facility]) [address] [place] [phone] Social History Tobacco Use Types Packs/Day [...] do you attend jewish or Never 2021 cheondoism services? Do you [...] have completed or the highest Martin, MEd, GIRLS TENNIS COACH, CAYDEN) degree you have received? Sex [...] PEN NEEDLE, DIABETIC Yani Fine 30 0 [facility] disposable needles. For use with Insulin Pens, 4 times daily SYRINGE-NEEDLE,INSULIN,0 0 .5 ML (INSULIN SYRINGE [facility]) traZODone (DESYREL) 100 Take 0.5 tablets (50 [...] bedtime. injectionIndications: Diabetes Mellitus Type 2 Hyperglycemia ([facility]) lisinopriL Take 1 tablet by [...] Results for this AEROBIC + SUSC, URINE SHIP PURSER Of Bladder Lateral procedure are in Wall ([facility]) the results section. URINALYSIS WITH Routine 08/13/2021 8:03 AM Malignant Neoplasm Results for this MICROSCOPIC SHIP PURSER Of Bladder Lateral procedure are in Wall ([facility]) the results section. documented in this encounter Results (ABNORMAL) Bacterial Culture, Aerobic + Susc, Urine (08/13/2021 8:03 AM SHIP PURSER) Analysis Performed At [facility] Urine Culture Mixed 08/14/2021 [facility] surekha. (A) 9:53 AM SHIP PURSER Specimen Anatomical Collection Method Collection Time Receive d Time (Source) Location / / Volume Laterality Urine (Urine, 08/13/2021 8:03 AM 08/13/20 21 2:11 Midstream) SHIP PURSER PM SHIP PURSER Comment: Specimen Source Site: Urine Prasanna Bernal M.D. LAB MICROBIOLOGY - GENERAL O RDERABLES Performing Organization Address City/State/ZIP Code Phon e Number [facility]- [address] [place] [id number] [place] [address] [address] (ABNORMAL) Urinalysis with Microscopic: Urine, Midstream (08/13/2021 8:03 AM SHIP PURSER) Analysis Performed At [facility] Signature Source Urine, Urine, 08/13/2021 FB60 Midstream 8:31 AM SHIP PURSER Clarity Clear Clear 08/13/2021 FB60 8:57 AM SHIP PURSER Color Yellow 08/13/2021 FB60 8:57 AM SHIP PURSER Comment: ----REFERENCE VALUE---- Colorless Yellow Mitra Blood Small (A) Negative 08/13/2021 8:57 AM SHIP PURSER FB60 Nitrite Negative Negative 08/13/2021 8:57 AM SHIP PURSER FB60 Leukocyte Esterase Trace (A) Negative 08/13/2021 8:57 AM CS T FB60 Protein Trace mg/dL 08/13/2021 8:57 AM SHIP PURSER FB60 Comment: ----REFERENCE VALUE---- Negative Trace Glucose >=1000 (A) Negative mg/dL 08/13/2021 8:57 AM SHIP PURSER F B60 Ketones, QI(U) Negative Negative mg/dL 08/13/2021 8:[address] FB60 Bilirubin Negative Negative 08/13/2021 8:57 AM SHIP PURSER FB60 pH 5.5 5.0 - 8.0 08/13/2021 8:57 AM SHIP PURSER FB60 Specific [place] 1.015 1.001 - 1.035 08/13/2021 8:57 AM SHIP PURSER FB60 Urobilinogen 0.2 0.2 - 1.0 mg/dL 08/13/2021 8:57 AM CS T FB60 White Blood Cells Occ-3 /hpf 08/13/2021 8:57 AM SHIP PURSER FB60 Comment: ----REFERENCE VALUE---- Males: 0-3 Females: 0-10 Unknown: 0-10 Red Blood Cells None Seen 0 - 2 /hpf 08/13/2021 8:57 AM SHIP PURSER FB60 Squamous Cells Occ-3 /hpf 08/13/2021 8:57 AM SHIP PURSER FB 60 Specimen Anatomical Collection Method Collection Time Receive d Time (Source) Location / / Volume Laterality Urine (Urine, 08/13/2021 8:03 AM 08/13/20 8:31 Midstream) SHIP PURSER AM SHIP PURSER Prasanna Bernal M.D. 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 PCP - General Internal Medicine 05/22/[address] [phone] documented as of this encounter
--- OUTSIDE RECORDS SUMMARY | 2022-05-27 11:53 | XMS_ITS | Encounter Summary ---
:1945 Author Organization [facility] Address [address] [place] [address] Care Team Providers Name Role Phone Shayla Alford D.O. Primary Care Provider [phone] Reason for Visit Reason Comments Nurse Visit Bladder Cancer Appointment Request (Routine) - Closed Specialty Diagnoses / Procedures Referred By Contact Refer red To Contact Urology Referral ID Status Reason Start Date Expiration Date Visits Requ ested Visits Authorized [id number] Closed 07/23/2021 07/23/2022 1 1 Encounter Details Date Type Department Care Team Description 08/15/2021 Nurse Only Department of Urology Lea Morin Nu rse Visit; Bladder in Alicia Dixonkarissa will R.N. Cancer [address] [place] [address] [place], [place] [phone] Social History Tobacco Use Types Packs/Day Years [...] do you attend mormon or Never 2021 episcopalian services? Do you [...] have completed or the highest Martin, MEd, TELEMETRY MONITOR, CAYDEN) degree you have received? Sex Assigned at Date Recorded Male 05/21/2018 2:34 PM CDT documented as of this encounter Last Filed Vital Signs Vital Sign Reading Time Taken Comments Blood Pressure - - Pulse 48 08/15/2021 8:51 AM PACKAGE WRAPPER Temperature 36.6 ??C (97.8 ??F) 08/15/2021 8:51 AM PACKAGE WRAPPER Respiratory Rate - - Oxygen Saturation 98% 08/15/2021 8:51 AM PACKAGE WRAPPER room ai r Inhaled Oxygen Concentration - [...] up scheduled for: 08/22/21 Lea Morin R.N. AGE WRAPPER documented in this encounter Plan of Treatment [...] 0.9% 50 mL Given 08/15/2021 9:00 AM PACKAGE WRAPPER 5 0 mg bladder instillation (JUANY BCG) [...] as of this encounter Care Teams Fire Patrol Relationship Specialty Start Date End Date Shayla Alford D.O. PCP - General Internal Medicine 05/22/[address] [phone] documented as of this encounter
--- OUTSIDE RECORDS SUMMARY | 2022-05-27 11:53 | XMS_ITS | Encounter Summary ---
:1945 Author Organization [facility] Address [address] [place] [address] Care Team Providers Name Role Phone Shayla Alford D.O. Primary Care Provider [phone] Reason for Visit Reason Comments Nurse Visit BCG Bladder Cancer Appointment Request (Routine) - Closed Specialty Diagnoses / Procedures Referred By Contact Refer red To Contact Urology Referral ID Status Reason Start Date Expiration Date Visits Requ ested Visits Authorized [id number] Closed 07/23/2021 07/23/2022 1 1 Encounter Details Date Type Department Care Team Description 08/22/2021 Nurse Only Department of Urology Lea Morin Nu rse Visit (BCG); [place] Bladder Cancer [address] [place] [address] [place], [place] [phone] Social History Tobacco Use Types Packs/Day Years [...] do you attend anglican or Never 2021 samaritan services? Do you [...] have completed or the highest Martin, MEd, STROKE COORDINATOR, CAYDEN) degree you have received? Sex Assigned at Date Recorded Male 05/21/2018 2:34 PM CDT documented as of this encounter Last Filed Vital Signs Vital Sign Reading Time Taken Comments Blood Pressure - - Pulse - - Temperature 36.6 ??C (97.8 ??F) 08/22/2021 10:07 AM VP OF MARKETING Respiratory Rate - - Oxygen Saturation - [...] the next BCG treatment. Lea Morin R.N. OF MARKETING documented in this encounter Plan of Treatment [...] 0.9% 50 mL Given 08/22/2021 10:10 AM VP OF MARKETING 50 mg bladder instillation (JUANY BCG) 50 [...] documented as of this encounter Care Teams Mobile Architect Relationship Specialty Start Date End Date Shayla Alford D.O. PCP - General Internal Medicine 05/22/[address] [phone] documented as of this encounter
--- OUTSIDE RECORDS SUMMARY | 2022-05-27 11:53 | XMS_ITS | Encounter Summary ---
:1945 Author Organization [facility] Address [address] [place] [address] Care Team Providers Name Role Phone Shayla Alford D.O. Primary Care Provider Reason for Referral Outpatient (Routine) - Closed Specialty Diagnoses / Procedures Referred By Contact Refer red To Contact Diagnoses Cyst Breast Left Shayla Alford [facility] Region Procedures BI Breast Diagnostic Bilateral with Tomosynthesis D.O. [address] [place] [phone] Referral ID Status Reason Start Date Expiration Date Visits Requ ested Visits Authorized [id number] Closed 09/14/2021 09/14/2022 1 1 ORATE COMPLIANCE DIRECTOR Reason for Visit Outpatient (Routine) - Closed Specialty Diagnoses / Procedures Referred By Contact Refer red To Contact Diagnoses Cyst Breast Left Shayla Alford [facility] Region Procedures BI Breast Diagnostic Bilateral with Tomosynthesis D.O. [address] [phone] Referral ID Status Reason Start Date Expiration Date Visits Requ ested Visits Authorized [id number] Closed 09/14/2021 09/14/2022 1 1 Encounter Details Date Type Department Care Team Description 10/09/2021 Hospital Encounter Department of [place], Cyst Breast Left [place] [address] [place] [phone] Social History Tobacco Use Types Packs/Day [...] do you attend taoist or Never 2021 nondenominational services? Do you [...] have completed or the highest Martin, MEd, SPINNERET PERSON, CAYDEN) degree you have received? Sex [...] (FREESTYLE SOFYA) a day. Use to scan [facility] Sofya sensor 5 times daily and as [...] Shayla Alford D.O. - 10/09/2021 11:05 AM CORPORATE COMPLIANCE DIRECTOR Good news, there is no cancer of the breast. There is some enlargement in the breast tissue which islikely related to medications. If it does not improve, we can do further testing. This will mean more blood work. Electronically signed by: Shayla Alford D.O. 10/09/21 11:05 AM CORPORATE COMPLIANCE DIRECTOR ORATE COMPLIANCE DIRECTOR documented in this encounter Plan of Treatment Not on filedocumented as of this encounter Procedures Procedure Name Priority Date/Time Associated Comments Diagnosis BI BREAST DIAGNOSTIC RAD - Routine 10/09/2021 10:08 Cyst Breast Lef t Results for BILATERAL WITH (most inpatients AM CORPORATE COMPLIANCE DIRECTOR this proc edure TOMOSYNTHESIS and all are in the outpatients) results section. documented in this encounter Results BI Breast Diagnostic Bilateral with Tomosynthesis (10/09/2021 10:08 AM CORPORATE COMPLIANCE DIRECTOR) Anatomical Region Laterality Modality Breast, Breast Imaging RST LOS, Breast Imaging ARZ LOS, Ama st Bilateral Mammography Imaging FLA LOS Specimen (Source) Anatomical Collection Method Collection Time Re ceived Time Location / / Volume Laterality 10/09/2021 10:38 AM CORPORATE COMPLIANCE DIRECTOR Impressions 10/09/2021 10:41 AM CORPORATE COMPLIANCE DIRECTOR 1. ??Left gynecomastia corresponds with lump. 2. ??No mammographic or sonographic find ings of malignancy. RECOMMENDATION: ??Individualized Recomme ndation Recommend management be based on clinica l grounds. ASSESSMENT: ??BI-RADS: 2: Benign. Narrative 10/09/2021 10:41 AM CORPORATE COMPLIANCE DIRECTOR EXAM: ??BI BREAST DIAGNOSTIC BILATERAL WITH TOMOSYNTHESIS, [...] documented as of this encounter Care Teams Honing Machine Set Up Operator Relationship Specialty Start Date End Date Shayla Alford D.O. PCP - General Internal Medicine 05/22/20 [address] [phone] documented as of this encounter
--- OUTSIDE RECORDS SUMMARY | 2022-05-27 11:53 | XMS_ITS | Encounter Summary ---
:1945 Author Organization [facility] Address [address] [place] [address] Care Team Providers Name Role Phone Shayla Alford D.O. Primary Care Provider [phone] Reason for Visit Reason Comments Gouty arthritis Encounter Details Date Type Department Care Team Description 09/02/2021 - Emergency [facility] Gout Arthritis (Primary 09/03/[address] [place] [phone] Social History Tobacco Use Types Packs/Day [...] have completed or the highest Martin, MEd, TUB MENDER, CAYDEN) degree you have received? Sex [...] (FREESTYLE SOFYA) times a day. Use to [facility] scan Sofya sensor 5 times daily and [...] PEN NEEDLE, DIABETIC Yani Fine 30 0 [facility] disposable needles. For use with Insulin Pens, 4 times daily SYRINGE-NEEDLE,INSULIN,0 0 .5 ML (INSULIN SYRINGE [facility]) traZODone (DESYREL) 100 Take [...] documented as of this encounter Care Teams Receptionist Scheduler Relationship Specialty Start Date End Date Shayla Alford D.O. PCP - General Internal Medicine 05/22/[address] [place] [phone] documented as of this encounter
--- OUTSIDE RECORDS SUMMARY | 2022-05-27 11:53 | XMS_ITS | Encounter Summary ---
:1945 Author Organization [facility] Address [address] [place] [address] Care Team Providers Name Role Phone Shayla Alford D.O. Primary Care Provider Encounter Details Date Type Department Care Team Description 08/27/2021 Hospital Encounter Department of Cirilo Bernal Neoplasm Of Laboratory Medicine Pato Mims Bladder Lateral Wall in [place], [address] ([facility]) [address] [place] [phone] Social History Tobacco Use Types Packs/Day [...] do you attend hinduism or Never 2021 mormonism services? Do you [...] have completed or the highest Martin, MEd, TARGET AIRCRAFT TECHNICIAN, CAYDEN) degree you have received? Sex [...] (FREESTYLE SOFYA) times a day. Use to [facility] scan Sofya sensor 5 times [...] DIABETIC Yani Fine 30 0 [facility] disposable needles. For use with Insulin Pens, 4 times daily SYRINGE-NEEDLE,INSULIN,0 0 .5 ML (INSULIN [place]YRINGE [facility]) traZODone (DESYREL) 100 Take 0.5 tablets (50 [...] bedtime. injectionIndications: Diabetes Mellitus Type 2 Hyperglycemia ([facility]) lisinopriL Take 1 tablet by [...] Results for this AEROBIC + SUSC, URINE IT ARCHITECTURE ANALYST Of Bladder Lateral procedure are in [place] ([facility]) the results section. URINALYSIS WITH Routine 08/27/2021 12:04 Malignant Neoplasm Re sults for this MICROSCOPIC AM IT ARCHITECTURE ANALYST Of Bladder Lateral procedure are in [place] ([facility]) the results section. documented in this encounter Results (ABNORMAL) Bacterial Culture, Aerobic + Susc, Urine (08/27/2021 8:25 AM IT ARCHITECTURE ANALYST) Analysis Performed At [facility] Time Signature Urine Culture Mixed 08/28/2021 [facility] surekha. (A) 10:47 AM IT ARCHITECTURE ANALYST Specimen Anatomical Collection Method Collection Time Receive d Time (Source) Location / / Volume Laterality Urine (Urine, 08/27/2021 8:25 AM 08/27/20 21 3:01 Midstream) IT ARCHITECTURE ANALYST PM IT ARCHITECTURE ANALYST Comment: Specimen Source Site: Urine Prasanna Bernal M.D. LAB MICROBIOLOGY - GENERAL O RDERABLES Performing Organization Address City/State/ZIP Code Phon e Number [facility]- [address] [place] [address] [place] [address] System [address] (ABNORMAL) Urinalysis with Microscopic: Urine, Midstream (08/27/2021 12:04 AM IT ARCHITECTURE ANALYST) Analysis Performed At [facility] Time Signature Source Urine, Urine, 08/27/2021 FB60 Midstream 8:49 AM IT ARCHITECTURE ANALYST Clarity Clear Clear 08/27/2021 FB60 9:13 AM IT ARCHITECTURE ANALYST Color Yellow 08/27/2021 FB60 9:13 AM IT ARCHITECTURE ANALYST Comment: ----REFERENCE VALUE---- Colorless Yellow Mitra Blood Trace (A) Negative 08/27/2021 9:13 AM IT ARCHITECTURE ANALYST FB60 Nitrite Negative Negative 08/27/2021 9:13 AM IT ARCHITECTURE ANALYST FB60 Leukocyte Esterase Small (A) Negative 08/27/2021 9:13 AM CS T FB60 Protein 30 (A) mg/dL 08/27/2021 9:13 AM IT ARCHITECTURE ANALYST FB60 Comment: ----REFERENCE VALUE---- Negative Trace Glucose >=1000 (A) Negative mg/dL 08/27/2021 9:13 AM IT ARCHITECTURE ANALYST F B60 Ketones, QI(U) Negative Negative mg/dL 08/27/2021 9:[address] FB60 Bilirubin Negative Negative 08/27/2021 9:13 AM IT ARCHITECTURE ANALYST FB60 pH 5.5 5.0 - 8.0 08/27/2021 9:13 AM IT ARCHITECTURE ANALYST FB60 Specific [place] 1.015 1.001 - 1.035 08/27/2021 9:13 AM IT ARCHITECTURE ANALYST FB60 Urobilinogen 0.2 0.2 - 1.0 mg/dL 08/27/2021 9:13 AM CS T FB60 White Blood Cells 4-10 (A) /hpf 08/27/2021 9:13 AM IT ARCHITECTURE ANALYST FB60 Comment: ----REFERENCE VALUE---- Males: 0-3 Females: 0-10 Unknown: 0-10 Red Blood Cells Occ-2 0 - 2 /hpf 08/27/2021 9:13 AM IT ARCHITECTURE ANALYST FB60 Squamous Cells 4-10 /hpf 08/27/2021 9:13 AM IT ARCHITECTURE ANALYST FB 60 Specimen Anatomical Collection Method Collection Time Receive d Time (Source) Location / / Volume Laterality Urine (Urine, 08/27/2021 12:04 08/27/2021 8:49 Midstream) AM IT ARCHITECTURE ANALYST AM IT ARCHITECTURE ANALYST Prasanna Bernal M.D. 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 PCP - General Internal Medicine 05/22/[address] [phone] documented as of this encounter
--- OUTSIDE RECORDS SUMMARY | 2022-05-27 11:53 | XMS_ITS | Encounter Summary ---
:1945 Author Organization [facility] Address [address] [place] [address] Care Team Providers Name Role Phone Shayla Alford D.O. Primary Care Provider [phone] Reason for Visit Reason Comments Communication Encounter Details Date Type Department Care Team Description 08/15/2021 Clinical Communication Department of Urology Lea Morin Communication in [employer] C, R.N. [address] [place] [phone] Social History Tobacco Use [...] do you attend jew or Never 2021 alevism services? Do you [...] completed or the highest Martin, MEd, AUTO BODY BUILDER APPRENTICE, CAYDEN) degree you have received? Sex Assigned at Date Recorded Male 05/21/2018 2:34 PM CDT documented as of this encounter Miscellaneous Notes Telephone Encounter - Jacquie Hamilton, L.P.N. - 08/16/2021 9:12 AM PIECE MARKER SMALL ARMS SUBJECTIVE CHIEF COMPLAINT / REASON FOR CALL Communication Information Discussed Patient contacted with advisement from provider given per Dr Reid direction. Patient requested appt to discuss left breast tenderness PLAN Disposition/Recommendation: patient transferred to appt desk to schedule appt Information/Education: patient/caller able to teach back Caller agreeable to plan of care: yes The following references were used: provider dr reid E MARKER SMALL ARMS Telephone Encounter - Shayla Alford D.O. - 08/15/2021 4:22 PM PIECE MARKER SMALL ARMS Our pharmacist Zoya reviewed the patients medication list and did not find that his medications are causing the symptoms. At this point, I am not sure what is the source of the pain. We are happy to seehim in the clinic for further evaluation. Electronically signed by: Shayla Alford D.O. 08/15/21 4:23 PM PIECE MARKER SMALL ARMS E MARKER SMALL ARMS Telephone Encounter - Lea Morin R.N. - 08/15/2021 3:08 PM CST Will forward to PCP to review and advise back to patient. Thank you! E MARKER SMALL ARMS Telephone Encounter - Lea Morin R.N. - [...] and advise, if need, send to PCP. E MARKER SMALL ARMS documented in this encounter Plan of Treatment Not on filedocumented as of this encounter Visit Diagnoses Not on filedocumented in this encounter Additional Health Concerns Assessment Noted Time PHQ-9 Depression Total Score: 18 04/28/2018 11:27 AM C DT documented as of this encounter Care Teams Technology Internship Relationship Specialty Start Date End Date Shayla Alford D.O. PCP - General Internal Medicine 05/22/[address] [phone] documented as of this encounter
--- OUTSIDE RECORDS SUMMARY | 2022-05-27 11:54 | XMS_ITS | Encounter Summary ---
:1945 Author Organization [facility] Address [address] [place] [address] Care Team Providers Name Role Phone Shayla Alford D.O. Primary Care Provider [phone] Encounter Details Date Type Department Care Team Description 07/09/2021 Clinical Communication Department of Internal Andrei Dejesus Medicine in [place], [place], [place] [address] [place] [phone] Social History Tobacco Use Types Packs/Day Years [...] do you attend restorationist or Never 2021 synagogue services? Do you [...] completed or the highest Martin, MEd, SALES EFFECTIVENESS MANAGER, CAYDEN) degree you have received? Sex [...] them and we will fax them to [phone], as not sure why they are not [...] to call in two prescriptions to the [facility]. They are for Jardiance 25mg [...] documented as of this encounter Care Teams Electrocardiograph Repairer Relationship Specialty Start Date End Date Shayla Alford D.O. PCP - General Internal Medicine 05/22/[address] [phone] documented as of this encounter
--- OUTSIDE RECORDS SUMMARY | 2022-05-27 11:54 | XMS_ITS | Encounter Summary ---
:1945 Author Organization [facility] Address [address] [place] [address] Care Team Providers Name Role Phone Shayla Alford D.O. Primary Care Provider [phone] Reason for Visit Reason Comments Pre-op Exam cystoscopy; 07/18/21 Appointment Request (Routine) - Closed Specialty Diagnoses / Procedures Referred By Contact Refer red To Contact Community Internal Medicine Referral ID Status Reason Start Date Expiration Date Visits Requ ested Visits Authorized [id number] Closed 07/10/2021 07/10/2022 1 1 Encounter Details Date Type Department Care Team Description 07/11/2021 Office Visit Department of Bandar De Leon Preoperativ e Exam (Primary Dx); Internal Medicine in S, P.A.-C. 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) ([facility]); [place] [address] Chronic Systolic (Congestive) Heart Fail ure ([facility]); [phone] Diabetes Mellitus Type 2 Wit h Diabetic Chronic Kidney Disease ([facility]); 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 Do you [...] completed or the highest Martin, MEd, FUR REPAIRER, CAYDEN) degree you have received? Sex Assigned [...] (cystoscopy; 07/18/21 ). HISTORY OF PRESENT ILLNESS Jonnatahn Costa is a 76 y.o. male who presents to the clinic today for preoperative anestheticmedical exam prior to cystoscopic transuretheral resection of bladder tumor with random bladder biopsies and mitomycin-c placement. Procedure is currently scheduled for 07/18/[address] Bernal at [facility]. Cardiac: Chest pain or shortness of breath [...] Master's degree (e.g., MA, MS, Martin, MEd, FUR REPAIRER, CAYDEN) Occupational History Employer: RETIRED Tobacco Use [...] than three times a week ??? Attends Restorationism Services: Never ??? Active Member of Clubs [...] with Dr. Prasanna Bernal at the [facility]. ??? TONSILLECTOMY ??? TONSILLECTOMY 1967 [...] ??? SYRINGE-NEEDLE,INSULIN,0.5 ML (INSULIN [place]YRINGE [facility]), , Disp: , Rfl: ??? torsemide (DEMADEX) 20 mg tablet, Take 2 tablets (40 mg total) by mouth every morning before breakfast., Disp: 180 tablet, Rfl: 3 ??? traZODone (DESYREL) 100 mg tablet, Take 0.5 tablets (50 mg total) by mouth at bedtime as needed for sleep., Disp: 30 tablet, Rfl: 1 ??? flash glucose scanning reader (FREESTYLE SOFYA) [facility], 1 each 5 (five) times a day. [...] without Differential; Future 4. Atherosclerotic Heart Disease [place] Coronary [...] surgery I would recommend re-evaluation with [facility]. 8. Hypertension Essential Primary [...] advised to schedule follow-up appointment with [facility] the [facility] at his earliest convenience. All questions have been answered and patient is in agreement with this plan. Torsten De Leon P.A.-C. 07/11/21 documented in this encounter Plan of Treatment Not on filedocumented as of this encounter Results (ABNORMAL) CBC without Differential (07/11/2021 10:53 AM CDT) [facility] gist Method Time Signature Hemoglobin 12.1 [...] [facility]- [address] [place] [address] [facility] [place] [address] System in [place] [address] (ABNORMAL) Basic Metabolic Panel [...] >=60 mL/min/BSA 07/11/2021 2:50 PM CDT [facility] [place] Comment: ----ADDITIONAL INFORMATION---- Estimated GFR calculated using the 2009 CKD_EPI creatinine equation. eGFR Non-Black/ 36 (L) >=60 mL/min/BSA 07/11/2021 2:50 PM CDT [facility] [place] Comment: ----ADDITIONAL INFORMATION---- Estimated GFR calculated using [...] [facility] [address] [place] [address] [place] [address] System in [place] [address] (ABNORMAL) Hemoglobin A1c (07/11/2021 10:53 [...] Number [facility]- [address] [place] [address] [facility] [place] [address] System in [place] [address] [facility] DX Chest AP or PA and Lateral [...] AND LATERAL 2 VIEWS Procedure Note Franklyn Holm M.D. - 10/13/2021 EXAM: DX CHEST [...] Localized Wi th Obstruction Atherosclerotic Heart Disease [place] Cor onary Artery With Other Forms Angina [...] documented as of this encounter Care Teams De Icer Relationship Specialty Start Date End Date Shayla Alford D.O. PCP - General Internal Medicine 05/22/20 [address] [place] [phone] documented as of this encounter
--- OUTSIDE RECORDS SUMMARY | 2022-05-27 11:54 | XMS_ITS | Encounter Summary ---
:1945 Author Organization [facility] Address [address] [place] [address] Care Team Providers Name Role Phone Shayla Alford D.O. Primary Care Provider [phone] Encounter Details Date Type Department Care Team Description 07/02/2021 Hospital Encounter Department of Cirilo Bernal Neoplasm Of Laboratory Medicine Pato Mims Bladder Posterior in [place], [address] ([facility] [address] [place] [phone] Social History Tobacco Use [...] do you attend zoroastrianism or Never 2021 mu-ism services? Do you [...] completed or the highest Martin, MEd, SALES AND CATERING COORDINATOR, CAYDEN) degree you have received? Sex [...] PEN NEEDLE, DIABETIC Yani Fine 30 0 [facility] disposable needles. For use with Insulin Pens, 4 times daily SYRINGE-NEEDLE,INSULIN,0 0 .5 ML (INSULIN SYRINGE [facility]) budesonide-formoteroL Inhale 2 puffs daily 0 1010/201911/19/2021 [...] >=60 mL/min/BSA 07/02/2021 11:17 AM CDT [facility] [place] Comment: ----ADDITIONAL INFORMATION---- Estimated GFR calculated using the 2009 CKD_EPI creatinine equation. Specimen Anatomical Collection Method Collection Time Receive d Time (Source) Location / / Volume Laterality Blood (Blood, 07/02/2021 10:24 07/02/2021 Venous) AM CDT 10:25 AM CDT Prasanna Bernal M.D. 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 PCP - General Internal Medicine 05/22/202[address] [facility] [place] [address] documented as of this encounter
--- OUTSIDE RECORDS SUMMARY | 2022-05-27 11:54 | XMS_ITS | Encounter Summary ---
:1945 Author Organization [facility] Address [address] [place] [address] Care Team Providers Name Role Phone Shayla Alford D.O. 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 [facility] [place] [facility] Procedures CT Urogram without and with IV Contrast [address] [place] [phone] Referral ID Status Reason Start Date Expiration Date Visits Requ ested Visits Authorized [id number] Closed 07/02/2021 07/02/2022 1 1 Encounter Details Date Type Department Care Team Description 07/10/2021 Hospital Encounter Department of Cirilo Bernal Neoplasm Of Radiology in Pato Mims Bladder Posterior [place], [place] [address] ([facility]) [address] [place] [phone] Social History Tobacco Use Types Packs/Day Years [...] do you attend nondenominational or Never 2021 episcopal services? Do you [...] have completed or the highest Martin, MEd, SUPERVISOR PROPERTIES, CAYDEN) degree you have received? Sex Assigned [...] (FREESTYLE SOFYA) times a day. Use to [facility] [place] [place] scan Sofya sensor 5 times daily and [...] subcentimeter renal cysts. Cortical defect/scarring of inferior nahtalia e left kidney. No filling defects of [...] documented as of this encounter Care Teams Monotype Keyboard Operator Relationship Specialty Start Date End Date Shayla Alford D.O. PCP - General Internal Medicine 05/22/[address] [phone] documented as of this encounter
--- OUTSIDE RECORDS SUMMARY | 2022-05-27 11:54 | XMS_ITS | Encounter Summary ---
:1945 Author Organization [facility] Address [address] [place] [address] Care Team Providers Name Role Phone Shayla Alford D.O. Primary Care Provider [phone] Encounter Details Date Type Department Care Team [...] do you attend shinto or Never 2021 uatsdin services? Do you [...] have completed or the highest Martin, MEd, DATER ASSEMBLER, CAYDEN) degree you have received? Sex [...] documented as of this encounter Care Teams Shaft Repairer Relationship Specialty Start Date End Date Shayla Alford D.O. PCP - General Internal Medicine 05/22/[address] [place] [phone] documented as of this encounter
--- OUTSIDE RECORDS SUMMARY | 2022-05-27 11:54 | XMS_ITS | Encounter Summary ---
:1945 Author Organization [facility] Address [address] [place] [address] Care Team Providers Name Role Phone Shayla Alford D.O. Primary Care Provider [phone] Encounter Details Date Type Department Care Team Description 07/11/2021 Hospital Encounter Department of Bandar De Leon Preop erative Exam; Radiology in [facility] Chronic Obstructive Pulmonary Disease (H CC) [place], [place] [address] [place] [phone] Social History Tobacco Use [...] do you attend anabaptism or Never 2021 restorationist services? Do you [...] have completed or the highest Martin, MEd, ENGLISH COMPOSITION INSTRUCTOR, CAYDEN) degree you have received? Sex [...] (FREESTYLE SOFYA) times a day. Use to [facility] [place] Sofya sensor 5 times daily and [...] NEEDLE, DIABETIC Yani Fine 30 0 [facility] disposable needles. For use with Insulin Pens, 4 times daily SYRINGE-NEEDLE,INSULIN,0 0 .5 ML (INSULIN [place]YRINGE [facility] traZODone (DESYREL) 100 Take [...] VIEWS Procedure Note Franklyn Holm M.D. - 07/11/2021 EXAM: DX CHEST [...] documented as of this encounter Care Teams Mortgage Loan Interviewer Relationship Specialty Start Date End Date Shayla Alford D.O. PCP - General Internal Medicine 05/22/[address] [phone] documented as of this encounter
--- OUTSIDE RECORDS SUMMARY | 2022-05-27 11:54 | XMS_ITS | Encounter Summary ---
:1945 Author Organization [facility] Address [address] [place] [address] Care Team Providers Name Role Phone Shayla Alford D.O. Primary Care Provider [phone] Reason for Visit Reason Comments Communication Encounter Details Date Type Department Care Team Description 07/11/2021 Clinical Communication Department of Urology Lea Morin Communication in [facility] C, R.N. [address] [place] [phone] Social History Tobacco Use [...] do you attend shinto or Never 2021 restorationist services? Do you [...] completed or the highest Martin, MEd, EQUIPMENT APPLICATION SPECIALIST, CAYDEN) degree you have received? Sex [...] documented as of this encounter Care Teams Biotech Production Specialist Relationship Specialty Start Date End Date Shayla Alford D.O. PCP - General Internal Medicine 05/22/[address] [phone] documented as of this encounter
--- OUTSIDE RECORDS SUMMARY | 2022-05-27 11:54 | XMS_ITS | Encounter Summary ---
:1945 Author Organization [facility] Address [address] [place] [address] Care Team Providers Name Role Phone Shayla Alford D.O. Primary Care Provider [phone] Encounter Details Date Type Department Care Team Description 07/09/2021 Hospital Encounter Department of Cirilo Bernal Neoplasm Of Laboratory Medicine Pato Mims Bladder Posterior in [place], [address] ([facility] [address] [place] [phone] Social History Tobacco Use [...] or relatives? How often do you attend buddhism or Never 2021 jain services? Do you belong to any clubs or No 10/09/2021 organizations such as buddhism groups, unions, fraternal or athletic groups, or [...] have completed or the highest Martin, MEd, INSURANCE SALESMAN, CAYDEN) degree you have received? Sex Assigned [...] SOFYA) times a day. Use to [facility] [place] Sofya sensor 5 times daily and [...] PEN NEEDLE, DIABETIC Yani Fine 30 0 [facility] disposable needles. 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 PCP - General Internal Medicine 05/[address] [place] [phone] documented as of this encounter
--- OUTSIDE RECORDS SUMMARY | 2022-05-27 11:54 | XMS_ITS | Encounter Summary ---
:1945 Author Organization [facility] Address [address] [place] [address] Care Team Providers Name Role Phone Shayla Alford D.O. 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 [facility] Procedures Cystoscopy (specific provider) [address], [place] [phone] Referral ID Status Reason Start Date Expiration Date Visits Requ ested Visits Authorized [id number] Closed 07/23/2021 07/23/2022 1 1 Reason for Visit Outpatient (Routine) - Closed Specialty Diagnoses / Procedures Referred By Contact Refer red To Contact Urology Prasanna Bernal M.D. 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 Malignant Neoplasm Of Bladder Posterior Wall [...] do you attend worship or Never 2021 church services? Do you [...] have completed or the highest Martin, MEd, POLICE SERGEANT, [place]) degree you have received? Sex Assigned [...] of Bladder Cancer, Urine (10/18/2021 10:20 AM NEWSPAPER MANAGING EDITOR) Component Value Ref Test Analysis Performed Pathologis t Range Method Time At Signature Result Summary Negative 11/05/2021 DTL 5:07 PM NEWSPAPER MANAGING EDITOR Karyotype No evidence of 11/05/2021 DTL urothelial 5:07 PM NEWSPAPER MANAGING EDITOR carcinoma. Reason for Evaluate for 11/05/2021 DT referral urothelial 5:07 PM NEWSPAPER MANAGING EDITOR carcinoma. Specimen Varies 11/05/2021 DTL 5:07 PM NEWSPAPER MANAGING EDITOR Source Voided 11/05/2021 DTL 5:07 PM NEWSPAPER MANAGING EDITOR Released By Dhiraj Porras, 11/05/2021 DT Pato 5:07 PM NEWSPAPER MANAGING EDITOR Interpretation This test result does not rule out the possibility t hat the 11/05/2021 DTL patient may have a low-grade (i.e. grade 1 or 2) 5:07 PM NEWSPAPER MANAGING EDITOR non-invasive papillary urothelial carcinoma. Some patients with low grade non-invasive papillary urothelial carcinoma do not have abnormalities with this FISH test. Comment: ----ADDITIONAL INFORMATION---- Fluorescence in situ hybridization (FISH ) with centromere probes for chromosomes 3 (D3Z1), 7(D7Z1), 17(D17Z1) , and a locus specific probe for 9p21 ([employer] [place], [place]) . This test has been modified from the man ufacturer's instructions. Its performance characteristics were determi darnell by [facility] in a manner consistent with CLIA requirements. This test has not been cleared or approved by the U.S. Food and Drug Administration . Specimen Anatomical Collection Method Collection Time Receive d Time (Source) Location / / Volume Laterality Varies (Urine, 10/18/2021 10:20 2 Voided) AM NEWSPAPER MANAGING EDITOR 11:31 AM NEWSPAPER MANAGING EDITOR Narrative This result has an attachment that is no t available. Prasanna Bernal M.D. LAB GENETIC TESTING Performing Organization Address City/State/ZIP Code Phon e Number [facility] - [address] [place], [place] [address] [place] [address] Laboratories-[facility] [address] Cytology Non-TRANSMITTER SUPERVISOR (Scheduled) (10/18/2021 10:20 AM NEWSPAPER MANAGING EDITOR) Component Value Ref Test Analysis Performed At [facility] gist Range Method Time Signature 10/19/2021 HKCY 9:33 AM NEWSPAPER MANAGING EDITOR Fixative 50% alcohol 10/19/2021 HKCY 9:33 AM NEWSPAPER MANAGING EDITOR Report Brady Goodrich MD 10/19/2021 HK electronically 9:33 AM NEWSPAPER MANAGING EDITOR signed by I verify that I have examined all relevant slides/materials for the specimen(s) and rendered or confirmed the diagnosis. Gross Description Received 50 10/19/2021 HKCY ml of yellow 9:33 AM NEWSPAPER MANAGING EDITOR alcohol fixed fluid. Collection clean void 10/19/2021 [facility] Procedure 9:33 AM NEWSPAPER MANAGING EDITOR Source A. Urine, 10/19/2021 HK[facility] Clean Catch, 9:33 AM NEWSPAPER MANAGING EDITOR voided Clinical History unknown 10/19/2021 HKCY 9:33 AM NEWSPAPER MANAGING EDITOR Interpretation A. Urine, Clean Catch, voided (cytospin): Negative f or 10/19/2021 HK[facility] High-Grade Urothelial Carcinoma. 9:33 AM NEWSPAPER MANAGING EDITOR Specimen Anatomical Collection Method Collection Time Receive d Time (Source) Location / / Volume Laterality Varies (Urine, 10/18/2021 10:20 2 2:04 Clean Catch) AM NEWSPAPER MANAGING EDITOR PM NEWSPAPER MANAGING EDITOR Narrative This result has an attachment that is no t available. Prasanna Bernal M.D. LAB SURG PATH ORDERABLES Performing Organization Address [facility] Phon e Number [address] [address] [place] [facility] [address] [facility] [place] [address] (ABNORMAL) Bacterial Culture, Aerobic + Susc, Urine (09/17/2021 9:01 AM NEWSPAPER MANAGING EDITOR) Analysis Performed At Patho logist Time Signature Urine Culture Mixed 09/18/2021 [facility] surekha. (A) 9:23 AM NEWSPAPER MANAGING EDITOR Specimen Anatomical Collection Method Collection Time Receive d Time (Source) Location / / Volume Laterality Urine (Urine, 09/17/2021 9:01 AM 09/17/20 2:06 Midstream) NEWSPAPER MANAGING EDITOR PM NEWSPAPER MANAGING EDITOR Comment: Specimen Source Site: Urine Prasanna Bernal M.D. LAB MICROBIOLOGY - GENERAL O RDERABLES Performing Organization Address City/[facility] Phon e Number [facility]- [address] [place] [phone] [place] [address] (ABNORMAL) Urinalysis with Microscopic: Urine, Midstream (09/17/2021 9:01 AM NEWSPAPER MANAGING EDITOR) Analysis Performed At Patho logist Time Signature Source Urine, Urine, 09/17/2021 FB60 Midstream 9:02 AM NEWSPAPER MANAGING EDITOR Clarity Clear Clear 09/17/2021 FB60 9:10 AM NEWSPAPER MANAGING EDITOR Color Yellow 09/17/2021 FB60 9:10 AM NEWSPAPER MANAGING EDITOR Comment: ----REFERENCE VALUE---- Colorless Yellow Mitra Blood Moderate (A) Negative 09/17/2021 9:10 AM NEWSPAPER MANAGING EDITOR FB60 Nitrite Negative Negative 09/17/2021 9:10 AM NEWSPAPER MANAGING EDITOR FB60 Leukocyte Esterase Negative Negative 09/17/2021 9:10 AM CS T FB60 Protein 100 (A) mg/dL 09/17/2021 9:10 AM NEWSPAPER MANAGING EDITOR FB60 Comment: ----REFERENCE VALUE---- Negative Trace Glucose >=1000 (A) Negative mg/dL 09/17/2021 9:10 AM NEWSPAPER MANAGING EDITOR F B60 Ketones, QI(U) Negative Negative mg/dL 09/17/2021 9:[address] FB60 Bilirubin Negative Negative 09/17/2021 9:10 AM NEWSPAPER MANAGING EDITOR FB60 pH 5.5 5.0 - 8.0 09/17/2021 9:10 AM NEWSPAPER MANAGING EDITOR FB60 Specific [place] 1.015 1.001 - 1.035 09/17/2021 9:10 AM NEWSPAPER MANAGING EDITOR FB60 Urobilinogen 0.2 0.2 - 1.0 mg/dL 09/17/2021 9:10 AM CS T FB60 White Blood Cells 4-10 (A) /hpf 09/17/2021 9:25 AM NEWSPAPER MANAGING EDITOR FB60 Comment: ----REFERENCE VALUE---- Males: 0-3 Females: 0-10 Unknown: 0-10 Red Blood Cells 3-10 (A) 0 - 2 /hpf 09/17/2021 9:25 AM NEWSPAPER MANAGING EDITOR FB60 Dysmorphic Red Blood Cells <=25 <=25 % 09/17/2021 9: 25 AM NEWSPAPER MANAGING EDITOR FB60 Specimen Anatomical Collection Method Collection Time Receive d Time (Source) Location / / Volume Laterality Urine (Urine, 09/17/2021 9:01 AM 09/17/20 9:01 Midstream) NEWSPAPER MANAGING EDITOR AM NEWSPAPER MANAGING EDITOR Prasanna Bernal M.D. LAB URINE ORDERABLES Performing Organization Address City/State/ZIP Code Phon e Number [facility]- [address] [place] [address] [place] [facility] [address] [place] [address] System in [place] [address] (ABNORMAL) Bacterial Culture, Aerobic + Susc, Urine (09/10/2021 8:27 AM NEWSPAPER MANAGING EDITOR) Analysis Performed At Path logis Time Signature Urine Culture Mixed 09/11/2021 [facility] surekha. (A) 1:04 PM NEWSPAPER MANAGING EDITOR Specimen Anatomical Collection Method Collection Time Receive d Time (Source) Location / / Volume Laterality Urine (Urine, 09/10/2021 8:27 AM 09/10/20 3:35 Midstream) NEWSPAPER MANAGING EDITOR PM NEWSPAPER MANAGING EDITOR Comment: Specimen Source Site: Urine Mid stream Prasanna Bernal M.D. LAB MICROBIOLOGY - GENERAL O RDERABLES Performing Organization Address City/State/ZIP Code Phon e Number [facility]- [address] [place] [id number] [place] [address] (ABNORMAL) Urinalysis with Microscopic: Urine, Midstream (09/10/2021 8:27 AM NEWSPAPER MANAGING EDITOR) Analysis Performed At [facility] Time Signature Source Urine, Urine, 09/10/2021 FB60 Midstream 8:44 AM NEWSPAPER MANAGING EDITOR Clarity Clear Clear 09/10/2021 FB60 8:58 AM NEWSPAPER MANAGING EDITOR Color Yellow 09/10/2021 FB60 8:58 AM NEWSPAPER MANAGING EDITOR Comment: ----REFERENCE VALUE---- Colorless Yellow Mitra Blood Small (A) Negative 09/10/2021 8:58 AM NEWSPAPER MANAGING EDITOR FB60 Nitrite Negative Negative 09/10/2021 8:58 AM NEWSPAPER MANAGING EDITOR FB60 Leukocyte Esterase Trace (A) Negative 09/10/2021 8:58 AM CS T FB60 Protein Negative mg/dL 09/10/2021 8:58 AM NEWSPAPER MANAGING EDITOR FB60 Comment: ----REFERENCE VALUE---- Negative Trace Glucose >=1000 (A) Negative mg/dL 09/10/2021 8:58 AM NEWSPAPER MANAGING EDITOR F B60 Ketones, QI(U) Negative Negative mg/dL 09/10/2021 8:[address] FB60 Bilirubin Negative Negative 09/10/2021 8:58 AM NEWSPAPER MANAGING EDITOR FB60 pH 5.5 5.0 - 8.0 09/10/2021 8:58 AM NEWSPAPER MANAGING EDITOR FB60 Specific [place] 1.015 1.001 - 1.035 09/10/2021 8:58 AM NEWSPAPER MANAGING EDITOR FB60 Urobilinogen 0.2 0.2 - 1.0 mg/dL 09/10/2021 8:58 AM CS T FB60 White Blood Cells 4-10 (A) /hpf 09/10/2021 9:00 AM NEWSPAPER MANAGING EDITOR FB60 Comment: ----REFERENCE VALUE---- Males: 0-3 Females: 0-10 Unknown: 0-10 Red Blood Cells None Seen 0 - 2 /hpf 09/10/2021 9:00 AM NEWSPAPER MANAGING EDITOR FB60 Specimen Anatomical Collection Method Collection Time Receive d Time (Source) Location / / Volume Laterality Urine (Urine, 09/10/2021 8:27 AM 09/10/20 21 8:44 Midstream) NEWSPAPER MANAGING EDITOR AM NEWSPAPER MANAGING EDITOR Prasanna Bernal M.D. LAB URINE ORDERABLES Performing Organization Address City/[facility] Phon e Number [address] [place], [place] [id number] [place] [address] LAB [address] [place] [address] [address] (ABNORMAL) Bacterial Culture, Aerobic + Susc, Urine (09/03/2021 8:34 AM NEWSPAPER MANAGING EDITOR) Analysis Performed At Patho logist Time Signature Urine Culture Mixed 09/04/2021 TO surekha. (A) 1:23 PM NEWSPAPER MANAGING EDITOR Specimen Anatomical Collection Method Collection Time Receive d Time (Source) Location / / Volume Laterality Urine (Urine, 09/03/2021 8:34 AM 09/03/20 21 2:19 Midstream) NEWSPAPER MANAGING EDITOR PM NEWSPAPER MANAGING EDITOR Comment: Specimen Source Site: Urine Prasanna Bernal M.D. LAB MICROBIOLOGY - GENERAL O RDERABLES Performing Organization Address City/[facility] Phon e Number [facility]- [address] [place] [phone] [place] [address] System in [address] (ABNORMAL) Urinalysis with Microscopic: Urine, Midstream (09/03/2021 8:34 AM NEWSPAPER MANAGING EDITOR) Analysis Performed At Patho logist Time Signature Source Urine, Urine, 09/03/2021 FB60 Midstream 8:49 AM NEWSPAPER MANAGING EDITOR Clarity Clear Clear 09/03/2021 FB60 8:57 AM NEWSPAPER MANAGING EDITOR Color Yellow 09/03/2021 FB60 8:57 AM NEWSPAPER MANAGING EDITOR Comment: ----REFERENCE VALUE---- Colorless Yellow Mitra Blood Trace (A) Negative 09/03/2021 8:57 AM NEWSPAPER MANAGING EDITOR FB60 Nitrite Negative Negative 09/03/2021 8:57 AM NEWSPAPER MANAGING EDITOR FB60 Leukocyte Esterase Negative Negative 09/03/2021 8:57 AM CS T FB60 Protein Negative mg/dL 09/03/2021 8:57 AM NEWSPAPER MANAGING EDITOR FB60 Comment: ----REFERENCE VALUE---- Negative Trace Glucose >=1000 (A) Negative mg/dL 09/03/2021 8:57 AM NEWSPAPER MANAGING EDITOR F B60 Ketones, QI(U) Negative Negative mg/dL 09/03/2021 8:[address] FB60 Bilirubin Negative Negative 09/03/2021 8:57 AM NEWSPAPER MANAGING EDITOR FB60 pH 5.5 5.0 - 8.0 09/03/2021 8:57 AM NEWSPAPER MANAGING EDITOR FB60 Specific [place] 1.010 1.001 - 1.035 09/03/2021 8:57 AM NEWSPAPER MANAGING EDITOR FB60 Urobilinogen 0.2 0.2 - 1.0 mg/dL 09/03/2021 8:57 AM CS T FB60 White Blood Cells 4-10 (A) /hpf 09/03/2021 9:13 AM NEWSPAPER MANAGING EDITOR FB60 Comment: ----REFERENCE VALUE---- Males: 0-3 Females: 0-10 Unknown: 0-10 Red Blood Cells Occ-2 0 - 2 /hpf 09/03/2021 9:13 AM NEWSPAPER MANAGING EDITOR FB60 Specimen Anatomical Collection Method Collection Time Receive d Time (Source) Location / / Volume Laterality Urine (Urine, 09/03/2021 8:34 AM 09/03/20 21 8:49 Midstream) NEWSPAPER MANAGING EDITOR AM NEWSPAPER MANAGING EDITOR Prasanna Bernal M.D. LAB URINE ORDERABLES Performing Organization Address City/State/ZIP Code Phon e Number [facility]- [address] [place] [address] [place] [facility] [address] [place] [address] System in [place] [address] (ABNORMAL) Bacterial Culture, Aerobic + Susc, Urine (08/27/2021 8:25 AM NEWSPAPER MANAGING EDITOR) Analysis Performed At Patho logist Time Signature Urine Culture Mixed 08/28/2021 [facility] surekha. (A) 10:47 AM NEWSPAPER MANAGING EDITOR Specimen Anatomical Collection Method Collection Time Receive d Time (Source) Location / / Volume Laterality Urine (Urine, 08/27/2021 8:25 AM 08/27/20 3:01 Midstream) NEWSPAPER MANAGING EDITOR PM NEWSPAPER MANAGING EDITOR Comment: Specimen Source Site: Urine Prasanna Bernal M.D. LAB MICROBIOLOGY - GENERAL O RDERABLES Performing Organization Address City/State/ZIP Code Phon e Number [facility]- [address] [place] [phone] [place] [address] System in [place] [address] [place] [address] (ABNORMAL) Urinalysis with Microscopic: Urine, Midstream (08/27/2021 12:04 AM NEWSPAPER MANAGING EDITOR) Analysis Performed At Patho logist Time Signature Source Urine, Urine, 08/27/2021 FB60 Midstream 8:49 AM NEWSPAPER MANAGING EDITOR Clarity Clear Clear 08/27/2021 FB60 9:13 AM NEWSPAPER MANAGING EDITOR Color Yellow 08/27/2021 FB60 9:13 AM NEWSPAPER MANAGING EDITOR Comment: ----REFERENCE VALUE---- Colorless Yellow Mitra Blood Trace (A) Negative 08/27/2021 9:13 AM NEWSPAPER MANAGING EDITOR FB60 Nitrite Negative Negative 08/27/2021 9:13 AM NEWSPAPER MANAGING EDITOR FB60 Leukocyte Esterase Small (A) Negative 08/27/2021 9:13 AM CS T FB60 Protein 30 (A) mg/dL 08/27/2021 9:13 AM NEWSPAPER MANAGING EDITOR FB60 Comment: ----REFERENCE VALUE---- Negative Trace Glucose >=1000 (A) Negative mg/dL 08/27/2021 9:13 AM NEWSPAPER MANAGING EDITOR F B60 Ketones, QI(U) Negative Negative mg/dL 08/27/2021 9:[address] FB60 Bilirubin Negative Negative 08/27/2021 9:13 AM NEWSPAPER MANAGING EDITOR FB60 pH 5.5 5.0 - 8.0 08/27/2021 9:13 AM NEWSPAPER MANAGING EDITOR FB60 Specific [place] 1.015 1.001 - 1.035 08/27/2021 9:13 AM NEWSPAPER MANAGING EDITOR FB60 Urobilinogen 0.2 0.2 - 1.0 mg/dL 08/27/2021 9:13 AM CS T FB60 White Blood Cells 4-10 (A) /hpf 08/27/2021 9:13 AM NEWSPAPER MANAGING EDITOR FB60 Comment: ----REFERENCE VALUE---- Males: 0-3 Females: 0-10 Unknown: 0-10 Red Blood Cells Occ-2 0 - 2 /hpf 08/27/2021 9:13 AM NEWSPAPER MANAGING EDITOR FB60 Squamous Cells 4-10 /hpf 08/27/2021 9:13 AM NEWSPAPER MANAGING EDITOR FB 60 Specimen Anatomical Collection Method Collection Time Receive d Time (Source) Location / / Volume Laterality Urine (Urine, 08/27/2021 12:04 08/27/2021 8:49 Midstream) AM NEWSPAPER MANAGING EDITOR AM NEWSPAPER MANAGING EDITOR Prasanna Bernal M.D. LAB URINE ORDERABLES Performing Organization Address [facility] Phon e Number [address] [place] [address] [place] [facility] [address] [place] [address] (ABNORMAL) Bacterial Culture, Aerobic + Susc, Urine (08/20/2021 8:19 AM NEWSPAPER MANAGING EDITOR) Analysis Performed At Patho logist Time Signature Urine Culture Mixed 08/21/2021 [facility] surekha. (A) 10:32 AM NEWSPAPER MANAGING EDITOR Specimen Anatomical Collection Method Collection Time Receive d Time (Source) Location / / Volume Laterality Urine (Urine, 08/20/2021 8:19 AM 08/20/20 2:13 Midstream) NEWSPAPER MANAGING EDITOR PM NEWSPAPER MANAGING EDITOR Comment: Specimen Source Site: Urine Prasanna Bernal M.D. LAB MICROBIOLOGY - GENERAL O RDERABLES Performing Organization Address City/[facility] Phon e Number [address] [address] [place] [address] [address] (ABNORMAL) Urinalysis with Microscopic: Urine, Midstream (08/20/2021 8:19 AM NEWSPAPER MANAGING EDITOR) Analysis Performed At Patho logist Time Signature Source Urine, Urine, 08/20/2021 FB60 Midstream 8:47 AM NEWSPAPER MANAGING EDITOR Clarity Clear Clear 08/20/2021 FB60 9:04 AM NEWSPAPER MANAGING EDITOR Color Yellow 08/20/2021 FB60 9:04 AM NEWSPAPER MANAGING EDITOR Comment: ----REFERENCE VALUE---- Colorless Yellow Mitra Blood Small (A) Negative 08/20/2021 9:04 AM NEWSPAPER MANAGING EDITOR FB60 Nitrite Negative Negative 08/20/2021 9:04 AM NEWSPAPER MANAGING EDITOR FB60 Leukocyte Esterase Negative Negative 08/20/2021 9:04 AM CS T FB60 Protein Negative mg/dL 08/20/2021 9:04 AM NEWSPAPER MANAGING EDITOR FB60 Comment: ----REFERENCE VALUE---- Negative Trace Glucose >=1000 (A) Negative mg/dL 08/20/2021 9:04 AM NEWSPAPER MANAGING EDITOR F B60 Ketones, QI(U) Negative Negative mg/dL 08/20/2021 9:[address] FB60 Bilirubin Negative Negative 08/20/2021 9:04 AM NEWSPAPER MANAGING EDITOR FB60 pH 5.5 5.0 - 8.0 08/20/2021 9:04 AM NEWSPAPER MANAGING EDITOR FB60 Specific [place] 1.010 1.001 - 1.035 08/20/2021 9:04 AM NEWSPAPER MANAGING EDITOR FB60 Urobilinogen 0.2 0.2 - 1.0 mg/dL 08/20/2021 9:04 AM CS T FB60 White Blood Cells 11-20 (A) /hpf 08/20/2021 9:04 AM NEWSPAPER MANAGING EDITOR FB60 Comment: ----REFERENCE VALUE---- Males: 0-3 Females: 0-10 Unknown: 0-10 Red Blood Cells Occ-2 0 - 2 /hpf 08/20/2021 9:04 AM NEWSPAPER MANAGING EDITOR FB60 Dysmorphic Red Blood Cells <=25 <=25 % 08/20/2021 9: 04 AM NEWSPAPER MANAGING EDITOR FB60 Squamous Cells Occ-3 /hpf 08/20/2021 9:04 AM NEWSPAPER MANAGING EDITOR FB 60 Specimen Anatomical Collection Method Collection Time Receive d Time (Source) Location / / Volume Laterality Urine (Urine, 08/20/2021 8:19 AM 08/20/20 8:47 Midstream) NEWSPAPER MANAGING EDITOR AM NEWSPAPER MANAGING EDITOR Prasanna Bernal M.D. LAB URINE ORDERABLES Performing Organization Address City/State/ZIP Code Phon e Number [facility]- [address] [place] [address] [place] [facility] [address] [place] [address] System in [place] [address] (ABNORMAL) Bacterial Culture, Aerobic + Susc, Urine (08/13/2021 8:03 AM NEWSPAPER MANAGING EDITOR) Analysis Performed At Patho logist Time Signature Urine Culture Mixed 08/14/2021 [facility] surekha. (A) 9:53 AM NEWSPAPER MANAGING EDITOR Specimen Anatomical Collection Method Collection Time Receive d Time (Source) Location / / Volume Laterality Urine (Urine, 08/13/2021 8:03 AM 08/13/20 21 2:11 Midstream) NEWSPAPER MANAGING EDITOR PM NEWSPAPER MANAGING EDITOR Comment: Specimen Source Site: Urine Prasanna Bernal M.D. LAB MICROBIOLOGY - GENERAL O RDERABLES Performing Organization Address City/State/ZIP Code Phon e Number [facility]- [address] [place] [address] [place] [address] System in [place] [address] [place] [address] (ABNORMAL) Urinalysis with Microscopic: Urine, Midstream (08/13/2021 8:03 AM NEWSPAPER MANAGING EDITOR) Analysis Performed At Patho logist Time Signature Source Urine, Urine, 08/13/2021 FB60 Midstream 8:31 AM NEWSPAPER MANAGING EDITOR Clarity Clear Clear 08/13/2021 FB60 8:57 AM NEWSPAPER MANAGING EDITOR Color Yellow 08/13/2021 FB60 8:57 AM NEWSPAPER MANAGING EDITOR Comment: ----REFERENCE VALUE---- Colorless Yellow Mitra Blood Small (A) Negative 08/13/2021 8:57 AM NEWSPAPER MANAGING EDITOR FB60 Nitrite Negative Negative 08/13/2021 8:57 AM NEWSPAPER MANAGING EDITOR FB60 Leukocyte Esterase Trace (A) Negative 08/13/2021 8:57 AM CS T FB60 Protein Trace mg/dL 08/13/2021 8:57 AM NEWSPAPER MANAGING EDITOR FB60 Comment: ----REFERENCE VALUE---- Negative Trace Glucose >=1000 (A) Negative mg/dL 08/13/2021 8:57 AM NEWSPAPER MANAGING EDITOR F B60 Ketones, QI(U) Negative Negative mg/dL 08/13/2021 8:[address] FB60 Bilirubin Negative Negative 08/13/2021 8:57 AM NEWSPAPER MANAGING EDITOR FB60 pH 5.5 5.0 - 8.0 08/13/2021 8:57 AM NEWSPAPER MANAGING EDITOR FB60 Specific [place] 1.015 1.001 - 1.035 08/13/2021 8:57 AM NEWSPAPER MANAGING EDITOR FB60 Urobilinogen 0.2 0.2 - 1.0 mg/dL 08/13/2021 8:57 AM CS T FB60 White Blood Cells Occ-3 /hpf 08/13/2021 8:57 AM NEWSPAPER MANAGING EDITOR FB60 Comment: ----REFERENCE VALUE---- Males: 0-3 Females: 0-10 Unknown: 0-10 Red Blood Cells None Seen 0 - 2 /hpf 08/13/2021 8:57 AM NEWSPAPER MANAGING EDITOR FB60 Squamous Cells Occ-3 /hpf 08/13/2021 8:57 AM NEWSPAPER MANAGING EDITOR FB 60 Specimen Anatomical Collection Method Collection Time Receive d Time (Source) Location / / Volume Laterality Urine (Urine, 08/13/2021 8:03 AM 08/13/20 21 8:31 Midstream) NEWSPAPER MANAGING EDITOR AM NEWSPAPER MANAGING EDITOR Prasanna Bernal M.D. 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 PCP - General Internal Medicine 05/22/[address] [place] [phone] documented as of this encounter
--- OUTSIDE RECORDS SUMMARY | 2022-05-27 11:54 | XMS_ITS | Encounter Summary ---
:1945 Author Organization [facility] Address [address] [place] [address] Care Team Providers Name Role Phone Shayla Alford D.O. Primary Care Provider [phone] Encounter Details Date Type Department Care Team Description 07/10/2021 Orders Only Department of Internal [place] [facility], [place], [place].Jason Wade [place] [address] [place] [phone] (Wo rk) Social History Tobacco Use Types [...] do you attend nondenominational or Never 2021 jain services? Do you [...] have completed or the highest Martin, MEd, AFFIRMATIVE ACTION OFFICER, [place]) degree you have received? Sex Assigned at Date Recorded Male 05/21/2018 2:34 PM CDT documented as of this encounter Plan of Treatment Not on filedocumented as of this encounter Visit Diagnoses Not on filedocumented in this encounter Additional Health Concerns Assessment Noted Time PHQ-9 Depression Total Score: 18 04/28/2018 11:27 AM C DT documented as of this encounter Care Teams Soup Mixer Relationship Specialty Start Date End Date Shayla Alford D.O. PCP - General Internal Medicine 05/22/[address] [phone] documented as of this encounter
--- OUTSIDE RECORDS SUMMARY | 2022-05-27 11:54 | XMS_ITS | Encounter Summary ---
:1945 Author Organization [facility] Address [address] [place] [address] Care Team Providers Name Role Phone Shayla Alford D.O. Primary Care Provider [phone] Reason for Visit Reason Onset Date Comments Hypertension 07/05/2021 Graduation 07/05/2021 Encounter Details Date Type Department Care Team Description 07/05/2021 Remote Monitoring Remote Patient Kanwal Bernardo rtension; Monitoring L, M.S.N., R.N. Graduation [facility] 5 [facility]5 [facility] [address] [place] [phone] Social History Tobacco Use Types Packs/Day Years [...] do you attend restoration or Never 2021 sikhism services? Do you [...] have completed or the highest Martin, MEd, GREASE RACK WORKER, CAYDEN) degree you have received? Sex [...] as of this encounter Care Teams Senior System Operator Relationship Specialty Start Date End Date Shayla Alford D.O. PCP - General Internal Medicine 05/22/[address] [phone] documented as of this encounter
--- OUTSIDE RECORDS SUMMARY | 2022-05-27 11:54 | XMS_ITS | Encounter Summary ---
:1945 Author Organization [facility] Address [address] [place] [address] Care Team Providers Name Role Phone Shayla Alford D.O. Primary Care Provider [phone] Encounter Details Date Type Department Care Team Description 07/11/2021 Hospital Encounter Department of Bandar De Leon ([facility]); Laboratory Medicine S, P.A.-C. Preoperative Exam in [facility] [address] [place], [place] [address] [address] [place], [place] [phone] (Work) [phone] Social History Tobacco Use Types Packs/Day Years [...] completed or the highest Martin, MEd, ACCOUNT COORDINATOR, CAYDEN) degree you have received? Sex [...] (FREESTYLE SOFYA) times a day. Use to [facility] scan Sofya sensor [...] NEEDLE, DIABETIC Yani Fine 30 0 [facility] disposable needles. For use with Insulin Pens, 4 times daily SYRINGE-NEEDLE,INSULIN,0 0 .5 ML (INSULIN SYRINGE [facility]) traZODone (DESYREL) 100 Take 0.5 tablets [...] CBC without Differential (07/11/2021 10:53 AM CDT) [facility] gist Method Time Signature Hemoglobin 12.1 [...] City/State/ZIP Code Phon e Number [facility]- [address] [place] [address] [facility] [place] [facility] [place] [address] System in [place] [address] (ABNORMAL) Basic Metabolic [...] >=60 mL/min/BSA 07/11/2021 2:50 PM CDT [facility] [place] Comment: ----ADDITIONAL INFORMATION---- Estimated GFR calculated using the 2009 CKD_EPI creatinine equation. eGFR Non-Black/ 36 (L) >=60 mL/min/BSA 07/11/2021 2:50 PM CDT [facility] [place] Comment: ----ADDITIONAL INFORMATION---- Estimated GFR calculated using [...] City/State/ZIP Code Phon e Number [facility]- [address] [place] [address] [place] [address] System in [place] 2199 [facility] (ABNORMAL) Hemoglobin A1c (07/11/2021 10:53 AM [...] City/State/ZIP Code Phon e Number [facility]- [address] [place] [address] [facility] [place] [place] [address] System in [place] [address] [facility] documented in this encounter Visit Diagnoses Diagnosis Stroke (HCC) Preoperative Exam documented in this encounter Additional Health Concerns Assessment Noted Time PHQ-9 Depression Total Score: 18 04/28/2018 11:27 AM C DT documented as of this encounter Care Teams Procurement Internship Relationship Specialty Start Date End Date Shayla Alford D.O. PCP - General Internal Medicine 05/22/202[address] [place] [address] documented as of this encounter
--- OUTSIDE RECORDS SUMMARY | 2022-05-27 11:54 | XMS_ITS | Encounter Summary ---
:1945 Author Organization [facility] Address [address] [place] [address] Care Team Providers Name Role Phone Shayla Alford D.O. Primary Care Provider [phone] Reason for Visit Reason Onset Date Comments Graduation 07/05/2021 Patient has graduate d from the Remote Monitoring program. Encounter Details Date Type Department Care Team Description 07/05/2021 Remote Monitoring Remote Patient Sayra Rogers Grad uation (Patient Monitoring R, B.S. has graduated from [place] [address] [place] [address] (Work) Monitoring program.) [place] [address] Social History Tobacco Use Types Packs/Day Years [...] do you attend bahai or Never 2021 christianity services? Do you [...] have completed or the highest Martin, MEd, OBSTETRICS TECHNICIAN, CAYDEN) degree you have received? Sex Assigned at Date Recorded Male 05/21/2018 2:34 PM CDT documented as of this encounter Plan of Treatment Not on filedocumented as of this encounter Visit Diagnoses Not on filedocumented in this encounter Additional Health Concerns Assessment Noted Time PHQ-9 Depression Total Score: 18 04/28/2018 11:27 AM C DT documented as of this encounter Care Teams Title Insurance Sales Representative Relationship Specialty Start Date End Date Shayla Alford D.O. PCP - General Internal Medicine 05/22/20 [address] [place] [phone] documented as of this encounter
--- OUTSIDE RECORDS SUMMARY | 2022-05-27 11:54 | XMS_ITS | Encounter Summary ---
:1945 Author Organization [facility] Address [address] [place] [address] Care Team Providers Name Role Phone Shayla Alford D.O. Primary Care Provider [phone] Encounter Details Date Type Department Care Team Description 07/12/2021 Orders Only Department of Urology in Prasanna Meng M.D. [place], [place] [address] [place] [phone] (Wo rk) Social History Tobacco [...] do you attend anabaptism or Never 2021 zoroastrian services? Do you [...] have completed or the highest Martin, MEd, WORKFORCE STAFFING ADVISOR, CAYDEN) degree you have received? Sex [...] documented as of this encounter Care Teams Milieu Coordinator Relationship Specialty Start Date End Date Shayla Alford D.O. PCP - General Internal Medicine 05/22/[address] [phone] documented as of this encounter
--- OUTSIDE RECORDS SUMMARY | 2022-05-27 11:54 | XMS_ITS | Encounter Summary ---
:1945 Author Organization [facility] Address [address] [place] [address] Care Team Providers Name Role Phone Shayla Alford D.O. Primary Care Provider [phone] Encounter Details Date Type Department Care Team Description 07/15/2021 Lab Department of Prasanna Mcdonnell Mali [facility] [address] ([facility]) [place], [place] 134 [facility] [address] [place] [address] [phone] Social History Tobacco Use Types Packs/Day Years [...] do you attend buddhism or Never 2021 amish services? Do you [...] have completed or the highest Martin, MEd, IRRIGATION TAX ASSESSOR COLLECTOR, CAYDEN) degree you have received? Sex Assigned [...] RNA, V Asymptomatic (07/15/2021 8:56 AM CDT) [facility] Method Time Signature SARS-CoV-2 Swab, 07/15/2021 [...] pe rformed using the Aptima SARS-CoV-2 assay ([employer] on the [place] Sys tem under emergency use authorization (EUA) by the U.S. Food and Drug Administ ten. Fact sheets for this EUA assay can be fo und at the following links: For Healthcare Providers: https://www.fd a.gov/media/757057/download For Patients: https://www.fda.gov/media/ 365066/download Specimen Anatomical Collection Method Collection Time Receive d Time (Source) Location / / Volume Laterality Varies 07/15/2021 8:56 AM 5:19 (Nasopharynx) CDT PM CDT Prasanna Bernal M.D. 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 PCP - General Internal Medicine 05/22/[address] [phone] documented as of this encounter
--- OUTSIDE RECORDS SUMMARY | 2022-05-27 11:54 | XMS_ITS | Encounter Summary ---
:1945 Author Organization [facility] Address 200 [place] [address] Care Team Providers Name Role Phone Shayla Alford D.O. Primary Care Provider [phone] Encounter Details Date Type Department Care Team Description 07/25/2021 Orders Only [facility] PCP [facility] Sa neno Espinal M.D. 200 [place], [place] [phone] (Wo rk) Social History [...] have completed or the highest Martin, Sirena, AD OPERATIONS INTERN, CAYDEN) degree you have received? Sex Assigned at Date Recorded Male 05/21/2018 2:34 PM CDT documented as of this encounter Plan of Treatment Not on filedocumented as of this encounter Visit Diagnoses Not on filedocumented in this encounter Additional Health Concerns Assessment Noted Time PHQ-9 Depression Total Score: 18 04/28/2018 11:27 AM C DT documented as of this encounter Care Teams Sagger Preparer Relationship Specialty Start Date End Date Shayla Alford D.O. PCP - General Internal Medicine 05/22/[address] [phone] documented as of this encounter
--- OUTSIDE RECORDS SUMMARY | 2022-05-27 11:54 | XMS_ITS | Encounter Summary ---
:1945 Author Organization [facility] Address [address] [place] [address] Care Team Providers Name Role Phone Shayla Alford D.O. Primary Care Provider [phone] Reason for Visit Reason Onset Date Comments Complex Care Coordination 07/29/2021June Esha santillan Encounter Details Date Type Department Care Team Description 07/29/2021 Remote Monitoring Remote Patient LesterSushma Complex Care Monitoring [address] [facility] Coordination (June [facility] 5 [place], [place] Billing ) [address] [facility] [address] [place], [place] [phone] (Work) Social History Tobacco Use Types Packs/Day [...] do you attend shinto or Never 2021 sabianist services? Do you [...] have completed or the highest Martin, MEd, COUNTY HOME DEMONSTRATION AGENT, CAYDEN) degree you have [...] documented as of this encounter Care Teams Avionics Integration Engineer Relationship Specialty Start Date End Date Shayla Alford D.O. PCP - General Internal Medicine 05/22/[address] [phone] documented as of this encounter
--- OUTSIDE RECORDS SUMMARY | 2022-05-27 11:54 | XMS_ITS | Encounter Summary ---
:1945 Author Organization [facility] Address [address] [place] [address] Care Team Providers Name Role Phone Shayla Alford D.OMauro Primary Care Provider [phone] Encounter Details Date Type Department Care Team Description 07/30/2021 Hospital Encounter Department of Alexys Diabete s Mellitus Type 2 Hyperglycemia (HCC); Laboratory Medicine Shayla queen Hyperten sion Essential Primary in [place], [facility] [place] [address] [place] [address] Social History Tobacco Use Types Packs/Day [...] do you attend mosque or Never 2021 holiness services? Do you [...] have completed or the highest Martin, MEd, STRATEGY ASSOCIATE, CAYDEN) degree you have received? Sex [...] PEN NEEDLE, DIABETIC Yani Fine 30 0 [facility] disposable needles. For use with Insulin Pens, 4 times daily SYRINGE-NEEDLE,INSULIN,0 0 .5 ML (INSULIN SYRINGE [facility]) traZODone (DESYREL) 100 Take 0.5 tablets (50 [...] eGFR-Black/Afri 36 (L) >=60 07/30/2021 [facility] can [place] mL/min/BSA 10:24 AM CDT Comment: ----ADDITIONAL INFORMATION---- Estimated GFR calculated using the 2009 CKD_EPI creatinine equation. eGFR Non-Black/ 31 (L) >=60 mL/min/BSA 07/30/2021 10:24 AM CDT [facility] [place] Comment: ----ADDITIONAL INFORMATION---- Estimated GFR calculated using [...] Phon e Number [facility]- [address] [place] [address] [place] [address] System in [place] [address] [facility] (ABNORMAL) Hemoglobin A1c (07/30/2021 9:50 AM CDT) [...] Number [facility]- [address] [place] [address] [facility] [place] [place] [address] System in [place] [address] documented in this encounter Visit Diagnoses Diagnosis Diabetes Mellitus Type 2 Hyperglycemia ( HCC) Hypertension Essential Primary documented in this encounter Additional Health Concerns Assessment Noted Time PHQ-9 Depression Total Score: 18 04/28/2018 11:27 AM C DT documented as of this encounter Care Teams Distributed Generation Project Manager Relationship Specialty Start Date End Date Shayla Alford D.O. PCP - General Internal Medicine 05/22/[address] [place] [address] documented as of this encounter
--- OUTSIDE RECORDS SUMMARY | 2022-05-27 11:54 | XMS_ITS | Encounter Summary ---
:1945 Author Organization [facility] Address [address] [place] [address] Care Team Providers Name Role Phone Shayla Alford D.O. Primary Care Provider [phone] Reason for Visit Reason Comments SURG DATE Needs pre-op note! Encounter Details Date Type Department Care Team Description 07/02/2021 Clinical Communication Department of Dolores, SURG DATE; Needs Urology in Pat[place] Mims pre-op note! [place], [place] [address] [place] [phone] Social History Tobacco Use Types Packs/Day [...] do you attend religious or Never 2021 baptism services? Do you [...] completed or the highest Martin, MEd, SUPERVISOR ENROBING, CAYDEN) degree you have received? Sex Assigned [...] 07/09/2021 2:[address] Reid, [facility] is looking for your notes on the [...] documented as of this encounter Care Teams Comber Fixer Relationship Specialty Start Date End Date Shayla Alford D.O. PCP - General Internal Medicine 05/22/20 [address] [place] [address] documented as of this encounter
--- OUTSIDE RECORDS SUMMARY | 2022-05-27 11:55 | XMS_ITS | Encounter Summary ---
:1945 Author Organization [facility] Address [address] [place] [address] Care Team Providers Name Role Phone Shayla Alford D.O. Primary Care Provider [phone] Reason for Visit Reason Onset Date Comments Hypertension 04/30/2021 Welcome Call 04/30/2021 Intake Assessment 04/30/2021 Encounter Details Date Type Department Care Team Description 04/30/2021 Remote Monitoring Remote Patient Prateek Padilla; Monitoring Donna Duque R.N. Welcome Call; [facility] Intake Assessment [address] [facility] (Work) [place] [address] Social History Tobacco Use Types Packs/Day Years [...] do you attend congregation or Never 2021 holiness services? Do you [...] have completed or the highest Martin, MEd, COOK LARDER, CAYDEN) degree you have received? Sex Assigned at Date Recorded Male 05/21/2018 2:34 PM CDT documented as of this encounter Progress Notes Donna Padilla RShama. 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 Patient is active outside at his [employer]. Jonnathan Costa was instructed on the program using Remote Monitoring program material StayingConnected with Remote Patient Monitoring ([id number]). Patient was instructed on whom to call [...] documented as of this encounter Care Teams Bartacker Relationship Specialty Start Date End Date Shayla Alford D.O. PCP - General Internal Medicine 05/22/200 [address] [address] documented as of this encounter
--- OUTSIDE RECORDS SUMMARY | 2022-05-27 11:55 | XMS_ITS | Encounter Summary ---
:1945 Author Organization [facility] Address [address] [place] [address] Care Team Providers Name Role Phone Shayla Alford D.O. Primary Care Provider [phone] Encounter Details Date Type Department Care Team Description 05/16/2021 Hospital Encounter Department of [facility], Chronic Kidney Disease (CKD), Stage 3b Glomerular Filtration Rate (GFR) 30 To 44 (HCC); Laboratory Medicine Prateek Torres Essential Primary and Pathology, [facility], in [address] [place] [address] [place] [address] [place], [place] [phone] (Work) [phone] Social History Tobacco Use Types Packs/Day Years [...] do you attend orthodoxy or Never 2021 zoroastrian services? Do you [...] have completed or the highest Martin, MEd, MECHANICAL PRODUCT ENGINEER, CAYDEN) degree you have received? Sex [...] (FREESTYLE SOFYA) times a day. Use to [facility] scan Sofya sensor 5 times daily and [...] PEN NEEDLE, DIABETIC Yani Fine 30 0 [facility] disposable needles. For use with Insulin Pens, 4 times daily SYRINGE-NEEDLE,INSULIN,0 0 .5 ML (INSULIN SYRINGE [facility]) budesonide-formoteroL Inhale 2 puffs [...] GarciaBMauroSMauro LAB URINE ORDERABLES Performing Organization Address City/[facility]/ZIP [facility] Phon e Number [facility] - 200 [place], [place] [address] [place] [address] [place] [address] pH, Urine (05/16/2021 1:08 PM CDT) P athologist Signature pH, U 5.0 4.5 - 8.0 05/16/2021 2:25 DTL PM CDT Specimen Anatomical Collection Method Collection Time Receive d Time (Source) Location / / Volume Laterality Urine 05/16/2021 1:08 PM 1 1:45 CDT PM CDT Melissa RiveraSMauro LAB URINE ORDERABLES Performing Organization Address City/[facility]/ZIP Code Phon e Number [facility] - 200 [place], [place] [address] [facility] [place] [address] Microscopic Automated (05/16/2021 1:08 PM CDT) P athologist Signature Microscopy Normal 05/16/2021 2:05 DTL PM CDT Specimen Anatomical Collection Method Collection Time Receive d Time (Source) Location / / Volume Laterality Urine 05/16/2021 1:08 PM 1 1:45 CDT PM CDT Melissa RiveraSMauro LAB URINE ORDERABLES Performing Organization Address City/[facility]/ZIP [facility] Phon e Number [facility] - 200 [place], [place] [address] [facility] [place] [place] [address] (ABNORMAL) Dipstick, Urine (05/16/2021 1:08 PM [...] RiveraSMauro LAB URINE ORDERABLES Performing Organization Address City/[facility] Code Phon e Number [facility] - [address] (ABNORMAL) Albumin, Random, Urine (05/16/2021 1:08 PM CDT) P athologist Signature Albumin, 120.9 mg/L 05/17/2021 DTL Random, U 8:10 AM CDT Comment: ----ADDITIONAL INFORMATION---- This test has been modified from the rachel blunt's instructions. Its performance characteri stics were determined by [facility] in a manner co nsistent with CLIA [...] RiveraSMauro LAB URINE ORDERABLES Performing Organization Address City/[facility]/ZIP Code Phon e Number [facility] - [address] (ABNORMAL) Urinalysis with Microscopic: Urine, Midstream [...] City/State/ZIP Code Phon e Number [facility] - [address] [place], [place] [address] [facility] [place] [address] Laboratories-[facility] [address] documented in this encounter Visit Diagnoses Diagnosis Chronic Kidney Disease (CKD), Stage 3b G lomerular Filtration Rate (GFR) 30 To 44 (HCC) Hypertension Essential Primary documented in this encounter Additional Health Concerns Assessment Noted Time PHQ-9 Depression Total Score: 18 04/28/2018 11:27 AM C DT documented as of this encounter Care Teams Mail Carriers Supervisor Relationship Specialty Start Date End Date Shayla Alford D.O. PCP - General Internal Medicine 05/22/[address] [phone] documented as of this encounter
--- OUTSIDE RECORDS SUMMARY | 2022-05-27 11:55 | XMS_ITS | Encounter Summary ---
:1945 Author Organization [facility] Address [address] [place] [address] Care Team Providers Name Role Phone Shayla Alford D.O. Primary Care Provider [phone] Reason for Visit Reason Onset Date Comments Hypertension 05/01/2021 Symptom Assessment 05/01/2021 Encounter Details Date Type Department Care Team Description 05/01/2021 Remote Monitoring Remote Patient Prateek Padilla; Monitoring Donna Duque R.N. Symptom Assessment [place] [address] [address] [facility] (Work) [place] [address] Social History Tobacco Use Types Packs/Day Years [...] do you attend christian or Never 2021 advent services? Do you [...] have completed or the highest Martin, MEd, CLASSIFICATION COUNSELOR, CAYDEN) degree you have received? Sex Assigned at Date Recorded Male 05/21/2018 2:34 PM CDT documented as of this encounter Plan of Treatment Not on filedocumented as of this encounter Visit Diagnoses Not on filedocumented in this encounter Additional Health Concerns Assessment Noted Time PHQ-9 Depression Total Score: 18 04/28/2018 11:27 AM C DT documented as of this encounter Care Teams Mix House Operator Relationship Specialty Start Date End Date Shayla Alford D.O. PCP - General Internal Medicine 05/22/20 [address] [place] [phone] documented as of this encounter
--- OUTSIDE RECORDS SUMMARY | 2022-05-27 11:55 | XMS_ITS | Encounter Summary ---
:1945 Author Organization [facility] Address [address] [place] [address] Care Team Providers Name Role Phone Shayla Alford D.O. Primary Care Provider [phone] Reason for Referral Outpatient (Routine) - Closed Specialty Diagnoses / Procedures Referred By Contact Refer red To Contact [facility] Internal ARMAAN Alford SE, D.O. [address] [phone] Referral ID Status Reason Start Date Expiration Date Visits Requ ested Visits Authorized [id number] Closed 05/23/2021 05/23/2022 1 1 Scheduling Instructions May use same slot to allow patient to sc hedule at 9 AM Diabetes follow up Reason for Visit Reason Comments Follow-up DM, CKD Outpatient (Routine) - Closed Specialty Diagnoses / Procedures Referred By Contact Madelaine castillo To Contact [facility] Internal ARMAAN Alford SE, D.O. 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 Diabetes Mellitus Type 2 Hyperglycemia ( HCC); [place] [address] Asthma Extrinsic Moderate (HCC); [address] [place], [place] Hypertension Essential Prima ry; [place] [address] Chronic Kidney Disease (CKD), Stage 3b G lomerular Filtration Rate (GFR) 30 To 44 ([facility] [address] Social History Tobacco Use Types Packs/Day [...] do you attend moravian or Never 2021 evangelical services? Do you [...] have completed or the highest Martin, MEd, SEAM FELLER, CAYDEN) degree you have received? Sex Assigned [...] behalf by Sarai Cason, a trained medical records administrator. The creation of this recordis based on the scribe remotely listening to the visit and the provider's statements to them. This do cument has been checked and approved by the attending provider. Time spent 33 minutes Electronically signed by: Shayla Alford D.O. 05/23/21 5:22 PM CDT documented in this encounter Plan of Treatment Scheduled Referrals Name Type Priority Associated Diagnoses Order S [facility] Internal Outpatient Referral Routine Ex pected: [...] as of this encounter Care Teams Inspector And Sorter Relationship Specialty Start Date End Date Shayla Alford D.O. PCP - General Internal Medicine 05/22/[address] [address] documented as of this encounter
--- OUTSIDE RECORDS SUMMARY | 2022-05-27 11:55 | XMS_ITS | Encounter Summary ---
:1945 Author Organization [facility] Address [address] [place] [address] Care Team Providers Name Role Phone Shayla Alford D.O. Primary Care Provider [phone] Reason for Visit Reason Comments Nurse Visit BP check Outpatient (Routine) - Closed Specialty Diagnoses / Procedures Referred By Contact Refer red To Contact Diagnoses Hypertension Essential Primary Shayla Alford [facility] Region D.O. [address], [place] [address] Referral ID Status Reason Start Date Expiration Date Visits Requ ested Visits Authorized [id number] Closed 05/01/2021 05/01/2022 1 1 Encounter Details Date Type Department Care Team Description 05/02/2021 Nurse Only Department of Family Shayla Murillo D.OMauro [address] [phone] Nurse Visit (BP check) [facility] [place] Kayli Garcia, L.PMauroNMauro [address] [place] [address] Clinic, in [place] [address] [place] [phone] Social History Tobacco Use Types Packs/Day Years [...] do you attend methodist or Never 2021 synagogue services? Do you [...] have completed or the highest Martin, MEd, TOOTH GRINDER, CAYDEN) degree you have received? Sex Assigned [...] documented as of this encounter Care Teams Management Specialist Relationship Specialty Start Date End Date Shayla Alford D.O. PCP - General Internal Medicine 05/22/[address] [address] documented as of this encounter
--- OUTSIDE RECORDS SUMMARY | 2022-05-27 11:55 | XMS_ITS | Encounter Summary ---
:1945 Author Organization [facility] Address [address] [place] [address] Care Team Providers Name Role Phone Shayla Alford D.O. Primary Care Provider [phone] Reason for Visit Reason Onset Date Comments Hypertension 05/03/2021 Symptom Assessment 05/03/2021 Encounter Details Date Type Department Care Team Description 05/03/2021 Remote Monitoring Remote Patient Prateek Padilla; Monitoring Donna Duque R.N. Symptom Assessment [facility] [place] [address] [address] [facility] (Work) [place] [address] Social History Tobacco Use Types Packs/Day Years [...] have completed or the highest Martin, MEd, PRESCHOOL ASSISTANT, CAYDEN) degree you have received? Sex [...] documented as of this encounter Care Teams Stove Bottom Worker Relationship Specialty Start Date End Date Shayla Alford D.O. PCP - General Internal Medicine 05/22/[address] [phone] documented as of this encounter
--- OUTSIDE RECORDS SUMMARY | 2022-05-27 11:55 | XMS_ITS | Encounter Summary ---
:1945 Author Organization [facility] Address [address] [place] [address] Care Team Providers Name Role Phone Shayla Alford D.O. Primary Care Provider [phone] Reason for Visit Reason Onset Date Comments Hypertension 05/07/2021 Encounter Details Date Type Department Care Team Description 05/07/2021 Remote Monitoring Remote Patient Raquel Le Hypertension Monitoring [facility] [address] [place] [address] Social History Tobacco Use Types Packs/Day Years [...] do you attend mormon or Never 2021 zoroastrianism services? Do you [...] have completed or the highest Martin, MEd, PHOTOGRAPHIC DOUBLE, CAYDEN) degree you have received? Sex Assigned at Date Recorded Male 05/21/2018 2:34 PM CDT documented as of this encounter Plan of Treatment Not on filedocumented as of this encounter Visit Diagnoses Not on filedocumented in this encounter Additional Health Concerns Assessment Noted Time PHQ-9 Depression Total Score: 18 04/28/2018 11:27 AM C DT documented as of this encounter Care Teams Seat Installer Relationship Specialty Start Date End Date Shayla Alford D.O. PCP - General Internal Medicine 05/22/20 [address] [place] [phone] documented as of this encounter
--- OUTSIDE RECORDS SUMMARY | 2022-05-27 11:55 | XMS_ITS | Encounter Summary ---
:1945 Author Organization [facility] Address [address] [place] [address] Care Team Providers Name Role Phone Shayla Alford D.O. Primary Care Provider [phone] Reason for Referral Outpatient (Routine) - Closed Specialty Diagnoses / Procedures Referred By Contact Refer red To Contact [facility] Internal ARMAAN Alford SE DL[place] [address] [place] [phone] Referral ID Status Reason Start Date Expiration Date Visits Requ ested Visits Authorized [id number] Closed 06/19/2021 06/19/2022 1 1 Scheduling Instructions Schedule one hour for preop Colonoscopy plus follow up CHF, CKD , diabetes , and HTN Reason for Visit Reason Comments Follow-up Outpatient (Routine) - Closed Specialty Diagnoses / Procedures Referred By Contact Refer red To Contact [facility] Internal ARMAAN Alford SE DMauroOMauro [address] [place] [phone] Referral ID Status Reason Start Date Expiration Date Visits Requ ested Visits Authorized [id number] Closed 05/23/2021 05/23/2022 1 1 Encounter Details Date Type Department Care Team Description 06/19/2021 Office Visit Department of [place] Diabetes Me coxitus Type 2 Hyperglycemia (HCC) (Primary Dx); Internal Medicine in Shayla D. O. Hypertension Essential Primary; [place], [place] [address] Chronic Systolic (Congestive) Heart Fail ure (HCC); [address] [place], [place] Chronic Kidney Disease (CKD) , Stage 3b Glomerular Filtration Rate (GFR) 30 To 44 (HCC); [place] [address] Hypothyroidism; [address] Hyperlipidemia Social History Tobacco Use [...] do you attend orthodoxy or Never 2021 anabaptism services? Do you [...] have completed or the highest Martin, Sirena, ANIMAL SCIENCE INSTRUCTOR, CAYDEN) degree you have received? Sex [...] him today. 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 He states that his glucose this morning [...] patient has a scheduled trip to [facility]. We discussed the importance of [...] Glomerular Filtration Rate (GFR) 30 To 44 ([facility]) #5 Hypothyroidism #6 Hyperlipidemia In regards to type 2 diabetes, the patient states that his blood sugar levels have improved. Unfortunately, he forgot to bring his meter with him today. 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 He states that his glucose this morning [...] The patient has a scheduled trip to [address] [place] [address]. We discussed the importance of following his [...] Name Type Priority Associated Diagnoses Order S [facility] Internal Outpatient Referral Routine Ex pected: [...] eGFR-Black/Afri 36 (L) >=60 07/30/2021 [facility] [place] mL/min/BSA 10:24 AM CDT Comment: ----ADDITIONAL INFORMATION---- Estimated GFR calculated using the 2009 CKD_EPI creatinine equation. eGFR Non-Black/ 31 (L) >=60 mL/min/BSA 07/30/2021 10:24 AM CDT [facility] [place] Comment: ----ADDITIONAL INFORMATION---- [...] Code Phon e Number [facility]- [address] [place] [address] [place] [address] System in [place] [address] (ABNORMAL) Hemoglobin A1c [...] Number [facility]- [address] [place] [address] [place] [address] System in [place] 2199 [facility] documented in this encounter Visit Diagnoses [...] as of this encounter Care Teams Special Educator Relationship Specialty Start Date End Date Shayla Alford D.O. PCP - General Internal Medicine 05/22/202199 [place] [address] documented as of this encounter
--- OUTSIDE RECORDS SUMMARY | 2022-05-27 11:55 | XMS_ITS | Encounter Summary ---
:1945 Author Organization [facility] Address [address] [place] [address] Care Team Providers Name Role Phone Shayla Alford D.O. Primary Care Provider [phone] Reason for Visit Reason Onset Date Comments Complex Care Coordination 06/28/2021May Bill ing Encounter Details Date Type Department Care Team Description 06/28/2021 Remote Monitoring Remote Patient BatistaSushma Complex Care Monitoring [address] [facility] Coordination [facility] [address] [place], [place] (May Billing ) [address] [facility] [address] [place], [place] [phone] (Work) Social History Tobacco Use Types Packs/Day [...] do you attend rastafarian or Never 2021 amish services? Do you [...] completed or the highest Martin, MEd, ROTARY PUMP OPERATOR, CAYDEN) degree you have received? Sex [...] documented as of this encounter Care Teams Temper Mill Operator Relationship Specialty Start Date End Date Shayla Alford D.O. PCP - General Internal Medicine 05/22/[address] [address] documented as of this encounter
--- OUTSIDE RECORDS SUMMARY | 2022-05-27 11:55 | XMS_ITS | Encounter Summary ---
:1945 Author Organization [facility] Address [address] [place] [address] Care Team Providers Name Role Phone Shayla Alford D.O. Primary Care Provider Reason for Referral Outpatient (Routine) - Closed Specialty Diagnoses / Procedures Referred By Contact Refer anna To Contact Urology Prasanna Bernal M.D. 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 [facility] Region Procedures CT Urogram without and with IV Contrast [address] [place] [address] Referral ID Status Reason Start Date Expiration Date Visits Requ ested Visits Authorized [id number] Closed 07/02/2021 07/02/2022 1 1 Reason for Visit Outpatient (Routine) - Closed Specialty Diagnoses / Procedures Referred By Contact Refer red To Contact Diagnoses Personal History Of Malignant Neoplasm Of Bladder Prasanna Bernal M.D. [facility] Region Procedures Cystoscopy (specific provider) [address] [place] [address] Referral ID Status Reason Start Date Expiration Date Visits Requ ested Visits Authorized [id number] Closed 06/12/2020 06/12/2021 1 1 Encounter Details Date Type Department Care Team Description 07/02/2021 Procedure visit Department of Urology Prasanna Bernal, Malignant Neoplasm Of in [place] Bladder Posterior Wall [place] 2199 ([facility]) [address] [place] [address] Social History Tobacco Use Types Packs/Day Years [...] do you attend bahai or Never 2021 spiritism services? Do you [...] have completed or the highest Martin, MEd, PILE DRIVING SETTER, CAYDEN) degree you have received? Sex [...] screening be ordered. He will need a backhaul driver. He will need to be NPO. Electronically signed by: Prasanna Bernal M.D. 07/02/21 9:41 AM CDT documented in this encounter Plan of Treatment Scheduled Referrals Name Type Priority Associated Diagnoses Order S [facility] Urology office Outpatient Referral Routine Expect ed: visit (clinic) 07/23/2021 (Approximate), Expires: 07/02/2024 documented as of this encounter Results SARS Coronavirus-2 RNA, V Asymptomatic (07/15/2021 8:56 AM CDT) [facility] Method Time Signature SARS-CoV-2 Swab, 07/15/2021 [...] pe rformed using the Aptima SARS-CoV-2 assay ([employer] on the [employer] tem under emergency use authorization (EUA) by the U.S. Food and Drug Administ ration. Fact sheets for this EUA assay can be fo und at the following links: For Healthcare Providers: https://www.fd a.gov/media/630286/download For Patients: https://www.fda.gov/media/ 953826/download Specimen Anatomical Collection Method Collection Time Receive d Time (Source) Location / / Volume Laterality Varies 07/15/2021 8:56 AM 5:19 (Nasopharynx) CDT PM CDT Prasanna Bernal M.D. LAB MICROBIOLOGY - GENERAL O RDERABLES Performing Organization Address City/State/ZIP Code Phon e Number [facility]- [address] [place] [address] [place] [address] System [address] Urogram without and with IV [...] Code Phon e Number [facility]- [facility] [place] [address] [facility] [place] [address] (ABNORMAL) Creatinine with Estimated GFR (07/02/2021 10:24 AM CDT) P athologist Signature Creatinine 1.51 (H) 0.74 - 1.35 07/02/2021 [place] mg/dL 11:17 AM CDT Comment: Testing performed on serum eGFR-Black/ 51 (L) >=60 mL/min/BSA 12/2020 11:17 AM CDT [facility] Comment: ----ADDITIONAL INFORMATION---- Estimated GFR calculated using the 2009 CKD_EPI creatinine equation. eGFR Non-Black/ 44 (L) >=60 mL/min/BSA 07/02/2021 11:17 AM CDT [facility] [place] Comment: ----ADDITIONAL INFORMATION---- Estimated GFR calculated using the 2009 CKD_EPI creatinine equation. Specimen Anatomical Collection Method Collection Time Receive d Time (Source) Location / / Volume Laterality Blood (Blood, 07/02/2021 10:24 07/02/2021 Venous) AM CDT 10:25 AM CDT Prasanna Bernal M.D. 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 PCP - General Internal Medicine 05/22/[address] [address] documented as of this encounter
--- OUTSIDE RECORDS SUMMARY | 2022-05-27 11:55 | XMS_ITS | Encounter Summary ---
:1945 Author Organization [facility] Address [address] [place] [address] Care Team Providers Name Role Phone Shayla Alford D.O. Primary Care Provider [phone] Encounter Details Date Type Department Care Team Description 05/22/2021 Hospital Encounter Department of Alexys Diabete s Mellitus Type Laboratory Medicine Shayla queen, 2 With Coleman navarro in [place] Nephropathy [place] [address] Hyperglycemic (HCC) [address] [place] [address] Social History Tobacco Use [...] do you attend shinto or Never 2021 presybeterian services? Do you [...] have completed or the highest Martin, MEd, COMPUTER SYSTEMS TECHNICIAN, CAYDEN) degree you have received? Sex [...] (FREESTYLE SOFYA) times a day. Use to [facility] scan Sofya sensor [...] NEEDLE, DIABETIC Yani Fine 30 0 [facility] disposable needles. 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 PCP - General Internal Medicine 05/22/20 [address] [place] [address] documented as of this encounter
--- OUTSIDE RECORDS SUMMARY | 2022-05-27 11:55 | XMS_ITS | Encounter Summary ---
:1945 Author Organization [facility] Address [address] [place] [address] Care Team Providers Name Role Phone Shayla Alford D.O. Primary Care Provider [phone] Reason for Visit Reason Onset Date Comments Hypertension 05/07/2021 Symptom Assessment 05/07/2021 Encounter Details Date Type Department Care Team Description 05/07/2021 Remote Monitoring Remote Patient Raquel Caldwell, Hypert ension; Symptom Monitoring R.N. Assessment [facility] [address] [facility] [address] [place] [address] Social History Tobacco Use Types Packs/Day Years [...] do you attend baptism or Never 2021 hindu services? Do you [...] completed or the highest Martin, MEd, CAR PRE COOLER, CAYDEN) degree you have received? Sex Assigned [...] documented as of this encounter Care Teams Assistant Department Manager Relationship Specialty Start Date End Date Shayla Alford D.O. PCP - General Internal Medicine 05/22/[address] [phone] documented as of this encounter
--- OUTSIDE RECORDS SUMMARY | 2022-05-27 11:55 | XMS_ITS | Encounter Summary ---
:1945 Author Organization [facility] Address [address] [place] [address] Care Team Providers Name Role Phone Shayla Alford D.O. Primary Care Provider [phone] Encounter Details Date Type Department Care Team Description 05/24/2021 Clinical Communication Department of Internal Andrei Dejesus Medicine in [place], [place], Coleman.O Mauro [place] [address] [place] [phone] Social History Tobacco Use Types Packs/Day Years [...] do you attend synagogue or Never 2021 anabaptist services? Do you [...] have completed or the highest Martin, MEd, MINT WAFER DEPOSITOR, CAYDEN) degree you have received? Sex Assigned at Date Recorded Male 05/21/2018 2:34 PM CDT documented as of this encounter Miscellaneous Notes Telephone Encounter - Yari [place] - 05/24/2021 11:16 AM CDT Faxed visit note to [facility] per patient request for discontinuation of oxygen. documented in this encounter Plan of Treatment Not on filedocumented as of this encounter Visit Diagnoses Not on filedocumented in this encounter Additional Health Concerns Assessment Noted Time PHQ-9 Depression Total Score: 18 04/28/2018 11:27 AM C DT documented as of this encounter Care Teams Cementer Machine Applicator Relationship Specialty Start Date End Date Shayla Alford D.O. PCP - General Internal Medicine 05/22/20 [address] [place] [phone] documented as of this encounter
--- OUTSIDE RECORDS SUMMARY | 2022-05-27 11:55 | XMS_ITS | Encounter Summary ---
:1945 Author Organization [facility] Address [address] [place] [address] Care Team Providers Name Role Phone Dejah Alford D.O. Primary Care Provider [phone] Reason for Visit Reason Onset Date Comments Hypertension 05/25/2021 Follow-up 05/25/2021 Encounter Details Date Type Department Care Team Description 05/25/2021 Remote Monitoring Remote Patient Prateek Padilla; Monitoring Donna Duque R.N. Follow-up [place] [address] [address] [facility] (Work) [place] [address] Social History Tobacco Use Types Packs/Day Years [...] you attend latter day or Never 2021 yazidism services? Do you [...] have completed or the highest Martin, MEd, BULK DELIVERY DRIVER, CAYDEN) degree you have received? Sex [...] documented as of this encounter Care Teams Soiled Linen Distributor Relationship Specialty Start Date End Date Dejah Alford D.O. PCP - General Internal Medicine 05/22/[address] [address] documented as of this encounter
--- OUTSIDE RECORDS SUMMARY | 2022-05-27 11:55 | XMS_ITS | Encounter Summary ---
:1945 Author Organization [facility] Address [address] [place] [address] Care Team Providers Name Role Phone Shayla Alford D.O. Primary Care Provider [phone] Reason for Visit Reason Onset Date Comments Hypertension 06/06/2021 Symptom Assessment 06/06/2021 Encounter Details Date Type Department Care Team Description 06/06/2021 Remote Monitoring Remote Patient Prateek Padilla; Monitoring Donna Duque R.N. Symptom Assessment [place] [address] [address] [facility] (Work) [place] [address] Social History Tobacco Use Types Packs/Day Years [...] do you attend yarsani or Never 2021 yazidi services? Do you [...] have completed or the highest Martin, MEd, DYNAMICS AX SOLUTION ARCHITECT, CAYDEN) degree you have received? Sex [...] of this encounter Care Teams Inspector And Clipper Relationship Specialty Start Date End Date Shayla Alford D.O. PCP - General Internal Medicine 05/22/20 [address] [place] [phone] documented as of this encounter
--- OUTSIDE RECORDS SUMMARY | 2022-05-27 11:55 | XMS_ITS | Encounter Summary ---
:1945 Author Organization [facility] Address [address] [place] [address] Care Team Providers Name Role Phone Shayla Alford D.OMauro Primary Care Provider [phone] Reason for Visit Reason Comments Med Refill Encounter Details Date Type Department Care Team Description 06/14/2021 Refill Department of Internal Medicine [facility]la Rob[facility] [address] [place] [address] [place] [address] [phone] (Wo rk) Social History Tobacco Use Types [...] do you attend shinto or Never 2021 alevism services? Do you [...] completed or the highest Martin, MEd, SENIOR POLICY ASSOCIATE, CAYDEN) degree you have received? Sex [...] picked this up or not. Please advise [place] pharmacy. Primary Provider: Shayla Alford D.O. Pharmacy: [facility] documented in this encounter Plan of Treatment Not on filedocumented as of this encounter Visit Diagnoses Diagnosis 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) Diabetes Mellitus Type 2 Hyperglycemia ( HCC) documented in this encounter Additional Health Concerns Assessment Noted Time PHQ-9 Depression Total Score: 18 04/28/2018 11:27 AM C DT documented as of this encounter Care Teams Field Service Tech Relationship Specialty Start Date End Date Shayla Alford D.O. PCP - General Internal Medicine 05/22/20 [address] [place] [address] documented as of this encounter
--- OUTSIDE RECORDS SUMMARY | 2022-05-27 11:55 | XMS_ITS | Encounter Summary ---
:1945 Author Organization [facility] Address [address] [place] [address] Care Team Providers Name Role Phone Shayla Alford D.O. Primary Care Provider [phone] Reason for Visit Reason Onset Date Comments Complex Care Coordination 07/01/2021June Esha santillan Encounter Details Date Type Department Care Team Description 07/01/2021 Remote Monitoring Remote Patient BatistaSushma Complex Care Monitoring [address] Coordination (June [facility] [place], [place] Billing ) [address] [facility] [address] [place], [place] [phone] (Work) Social History Tobacco Use Types Packs/Day [...] do you attend anabaptist or Never 2021 protestant services? Do you [...] have completed or the highest Martin, MEd, BILLBOARD INSTALLER, CAYDEN) degree you have received? Sex [...] documented as of this encounter Care Teams Pearl Hand Relationship Specialty Start Date End Date Shayla Alford D.O. PCP - General Internal Medicine 05/22/[address] [address] documented as of this encounter
--- OUTSIDE RECORDS SUMMARY | 2022-05-27 11:55 | XMS_ITS | Encounter Summary ---
:1945 Author Organization [facility] Address [address] [place] [address] Care Team Providers Name Role Phone Shayla Alford D.O. Primary Care Provider [phone] Reason for Visit Reason Onset Date Comments Hypertension 06/11/2021 Symptom Assessment 06/11/2021 Encounter Details Date Type Department Care Team Description 06/11/2021 Remote Monitoring Remote Patient Prateek Padilla; Monitoring Donna Duque R.N. Symptom Assessment [facility] [address] [address] [facility] (Work) [place] [address] Social History Tobacco Use Types Packs/Day Years [...] do you attend anabaptism or Never 2021 methodist services? Do you [...] have completed or the highest Martin, MEd, CONTINUITY TESTER, CAYDEN) degree you have received? Sex Assigned at Date Recorded Male 05/21/2018 2:34 PM CDT documented as of this encounter Progress Notes Donna Padilla R.N. - 06/11/2021 11:17 AM CDT Remote [...] documented as of this encounter Care Teams Atm Technician Relationship Specialty Start Date End Date Shayla Alford D.O. PCP - General Internal Medicine 05/22/202199 [address] [address] documented as of this encounter
--- OUTSIDE RECORDS SUMMARY | 2022-05-27 11:55 | XMS_ITS | Encounter Summary ---
:1945 Author Organization [facility] Address [address] [place] [address] Care Team Providers Name Role Phone Shayla Alford D.O. Primary Care Provider [phone] Reason for Visit Reason Onset Date Comments Complex Care Coordination 05/27/2021April Billing Encounter Details Date Type Department Care Team Description 05/27/2021 Remote Monitoring Remote Patient Siomara Jeffries Complex Care Monitoring [phone] Coordination (April [facility] (Work[facility] Billing) [address] [place] [address] Social History Tobacco Use Types Packs/Day Years [...] do you attend jainism or Never 2021 holiness services? Do you [...] have completed or the highest Martin, Sirena, BATTER MIXER HELPER, CAYDEN) degree you have received? Sex [...] documented as of this encounter Care Teams Casino Floor Supervisor Relationship Specialty Start Date End Date Shayla Alford D.O. PCP - General Internal Medicine 05/22/[address] [address] documented as of this encounter
--- OUTSIDE RECORDS SUMMARY | 2022-05-27 11:55 | XMS_ITS | Encounter Summary ---
:1945 Author Organization [facility] Address [address] [place] [address] Care Team Providers Name Role Phone Shayla Alford D.OMauro Primary Care Provider [phone] Reason for Visit Reason Comments Med Refill Encounter Details Date Type Department Care Team Description 05/29/2021 Refill Department of Internal Medicine [facility]la [facility], [facility] [address] [place] [address] [place] [address] [phone] (Wo rk) Social History Tobacco Use Types [...] have completed or the highest Martin, MEd, WOOD MILL SUPERVISOR, CAYDEN) degree you have received? Sex [...] have his diabetes care managed by his [place] providers and not [facility]. He [...] by mouth every morning before breakfast. Pharmacy: [facility] - [place], [place] - [facility] (Pharmacy) [phone] documented in this encounter Plan of Treatment Not on filedocumented as of this encounter Visit Diagnoses Diagnosis Diabetes Mellitus Type 2 Hyperglycemia ( HCC) documented in this encounter Additional Health Concerns Assessment Noted Time PHQ-9 Depression Total Score: 18 04/28/2018 11:27 AM C DT documented as of this encounter Care Teams Low Vision Therapist Relationship Specialty Start Date End Date Shayla Alford D.O. PCP - General Internal Medicine 05/22/[address] [phone] documented as of this encounter
--- OUTSIDE RECORDS SUMMARY | 2022-05-27 11:55 | XMS_ITS | Encounter Summary ---
:[address] [facility] Address [address] [place] [address] Care Team Providers Name Role Phone Shayla Alford D.O. Primary Care Provider [phone] Reason for Visit Reason Onset Date Comments Hypertension 05/11/2021 Symptom Assessment 05/11/2021 Encounter Details Date Type Department Care Team Description 05/11/2021 Remote Monitoring Remote Patient Kayli Guzman Hyp ertension; Monitoring K, R.N. Symptom Assessment [place] [place] [address] [address] [facility] (Work) [place] [address] Social History Tobacco Use Types Packs/Day Years [...] do you attend methodist or Never 2021 yarsanism services? Do you [...] have completed or the highest Martin, MEd, GREEN ENERGY MARKETING ANALYST, CAYDEN) degree you have received? Sex [...] as of this encounter Care Teams Field Crops Harvest Machine Operator Relationship Specialty Start Date End Date Shayla Alford D.O. PCP - General Internal Medicine 05/22/[address] [address] documented as of this encounter
--- OUTSIDE RECORDS SUMMARY | 2022-05-27 11:55 | XMS_ITS | Encounter Summary ---
:1945 Author Organization [facility] Address [address] [place] [address] Care Team Providers Name Role Phone Shayla Alford D.O. Primary Care Provider [phone] Reason for Visit Reason Comments Medical Information Remote BP Monitoring Device Encounter Details Date Type Department Care Team Description 05/01/2021 Clinical Communication Department of Alexys Wheeler [facility] Information Internal Medicine en, Shayla, (Remote BP in [place], D.O. Monitoring Device) [place] [address] [place] [phone] Social History Tobacco Use Types Packs/Day Years [...] do you attend episcopalian or Never 2021 uatsdin services? Do you [...] completed or the highest Martin, MEd, SERVICE ENGINEER, CAYDEN) degree you have received? Sex [...] agreeable to nurse visit. Warm transferred to [facility] to schedule appointment. PLAN Disposition/Recommendation: patient [...] and has been for abouta week. This blog writer discussed with the patient that I would look into his home monitoring device, and discuss his situation further with his provider and follow up with a phone call once knowing more information. Nursing then called [phone] and spoke to remote monitoring nurse who instructed this blog writer where to find the home monitoring [...] or nurse, please advise. Current Phone Number: [phone] Can Nursing/Provider leave a detailed message: yes [...] documented as of this encounter Care Teams Surveyor Helper Relationship Specialty Start Date End Date Shayla Alford D.O. PCP - General Internal Medicine 05/22/[address] [phone] documented as of this encounter
--- OUTSIDE RECORDS SUMMARY | 2022-05-27 11:55 | XMS_ITS | Encounter Summary ---
:1945 Author Organization [facility] Address [address] [place] [address] Care Team Providers Name Role Phone Shayla Alford D.O. Primary Care Provider [phone] Reason for Referral Outpatient (Routine) - Closed Specialty Diagnoses / Procedures Referred By Contact Refer red To Contact Diagnoses Hypertension Essential Primary Shayla Alford [facility] D.O. [address] [place] [address] Referral ID Status Reason Start Date Expiration Date Visits Requ ested Visits Authorized [id number] Closed 05/01/2021 05/01/2022 1 1 Encounter Details Date Type Department Care Team Description 05/01/2021 Orders Only Department of Internal Selvin Alford ypertension Essential Medicine [place]O . Primary (Primary Dx) [place] [address] [place] [phone] Social History Tobacco Use Types Packs/Day Years [...] do you attend scientology or Never 2021 caodaism services? Do you [...] have completed or the highest Martin, MEd, ACRYLIC FABRICATOR, CAYDEN) degree you have received? Sex Assigned at Date Recorded Male 05/21/2018 2:34 PM CDT documented as of this encounter Plan of Treatment Scheduled Referrals Name Type Priority Associated Diagnoses Order S [facility] Primary Care Outpatient Referral Routine Hypertension [facility]entia l Expected: nurse visit Primary 05/15/2021 (clinic) - [facility] ([facility] ), [place]; Expires: Vital signs 05/01/2024 documented as of this encounter Visit Diagnoses Diagnosis Hypertension Essential Primary - Primary documented in this encounter Additional Health Concerns Assessment Noted Time PHQ-9 Depression Total Score: 18 04/28/2018 11:27 AM C DT documented as of this encounter Care Teams Technical Implementation Lead Relationship Specialty Start Date End Date Shayla Alford D.O. PCP - General Internal Medicine 05/22/[address] [phone] documented as of this encounter
--- OUTSIDE RECORDS SUMMARY | 2022-05-27 11:55 | XMS_ITS | Encounter Summary ---
:1945 Author Organization [facility] Address [address] [place] [address] Care Team Providers Name Role Phone Shayla Alford D.O. Primary Care Provider [phone] Reason for Visit Reason Onset Date Comments Complex Care Coordination 05/29/2021April Billing Encounter Details Date Type Department Care Team Description 05/29/2021 Remote Monitoring Remote Patient BatistaSushma Complex Care Monitoring [address] [facility] Coordination (April [facility] [place], [place] Billing ) [address] [facility] [address] [place], [place] [phone] (Work) Social History Tobacco Use Types Packs/Day [...] you attend roman catholic or Never 2021 tenriism services? Do you [...] have completed or the highest Martin, MEd, FRONT LINE SUPERVISOR, CAYDEN) degree you have received? Sex [...] documented as of this encounter Care Teams Poiser Balance Relationship Specialty Start Date End Date Shayla Alford D.O. PCP - General Internal Medicine 05/22/[address] [address] documented as of this encounter
--- OUTSIDE RECORDS SUMMARY | 2022-05-27 11:55 | XMS_ITS | Encounter Summary ---
:1945 Author Organization [facility] Address [address] [place] [address] Care Team Providers Name Role Phone Shayla Alford D.O. Primary Care Provider [phone] Encounter Details Date Type Department Care Team Description 06/18/2021 Hospital Encounter Department of Dolores, Personal History Of Laboratory Medicine Pato Mims Malignant Neoplasm Of in [place], [address] [facility] [address] [place] [address] Social History Tobacco Use [...] do you attend presybeterian or Never 2021 yarsani services? Do you [...] have completed or the highest Martin, MEd, EARLY YEARS TEACHER, CAYDEN) degree you have received? Sex [...] PEN NEEDLE, DIABETIC Yani Fine 30 0 [facility] disposable needles. For use with Insulin Pens, 4 times daily SYRINGE-NEEDLE,INSULIN,0 0 .5 ML (INSULIN SYRINGE [facility]) budesonide-formoteroL Inhale 2 puffs daily 0 10/0 [...] Priority Date/Time Associated Diagnosis Comme nts CYTOLOGY NON-ACCESS LIAISON Routine 06/18/2021 9:08 AM Personal History O f Results for this (SCHEDULED) CDT Malignant Neoplasm procedure are in Of Bladder the results section. documented in this encounter Results (ABNORMAL) Cytology Non-ACCESS LIAISON (Scheduled) (06/18/2021 9:08 AM CDT) Component Value Ref Test Analysis Performed At [facility] gist Range Method Time Signature 06/19/2021 [...] Code Phon e Number [facility]- [address] [place], [place] [id number] [place] [address] [address] [facility] [address] Cytology 1025 [facility] documented in this encounter Visit Diagnoses Diagnosis Personal History Of Malignant Neoplasm O f Bladder documented in this encounter Additional Health Concerns Assessment Noted Time PHQ-9 Depression Total Score: 18 04/28/2018 11:27 AM C DT documented as of this encounter Care Teams Two Needle Machine Operator Relationship Specialty Start Date End Date Shayla Alford D.O. PCP - General Internal Medicine 05/22/[address] [phone] documented as of this encounter
--- OUTSIDE RECORDS SUMMARY | 2022-05-27 11:55 | XMS_ITS | Encounter Summary ---
:1945 Author Organization [facility] Address [address] [place] [address] Care Team Providers Name Role Phone Shayla Alford D.O. Primary Care Provider [phone] Reason for Referral Outpatient (Routine) - Closed Specialty Diagnoses / Procedures Referred By Contact Refer anna To Contact Nephbenito and Melissa Ferrer [place] [facility] [address] [place] [address] Referral ID Status Reason Start Date Expiration Date Visits Requ ested Visits Authorized [id number] Closed 05/16/2021 05/16/2022 1 1 Reason for Visit Reason Comments Chronic Kidney Disease Outpatient (Routine) - Closed Specialty Diagnoses / Procedures Referred By Contact Madelaine castillo To Contact Melissa March [place] [facility] [address] [place] [address] Referral ID Status Reason Start Date Expiration Date Visits Requ ested Visits Authorized [id number] Closed 04/12/2021 04/12/2022 1 1 Encounter Details Date Type Department Care Team Description 05/16/2021 Office Visit Division of Nephrology Fabio Ferrer Kidney Disease (CKD), Stage 3b Glomerular Filtration Rate (GFR) 30 To 44 (HCC) (Primary Dx); and Hypertension in Melissa, Hyperten nubia Essential Primary [place], [place] M.B.B.S. [address] [place] [phone] [phone] Social History Tobacco Use Types Packs/Day Years [...] do you attend synagogue or Never 2021 samaritan services? Do you [...] completed or the highest Martin, MEd, DIRECTOR INSTRUCTIONAL MATERIAL, CAYDEN) degree you have received? Sex Assigned [...] now started on SGLT-2 inhibitor by his hearing aid dispenser in [place]. We discussed stopping his afternoon dose of [...] (ABNORMAL) Albumin, Random, Urine (10/18/2021 10:20 AM FLOW MACHINE OPERATOR) [facility] Method Time Signature Microalbumin 66.0 mg/L 10/18/2021 OWAT 1:14 PM FLOW MACHINE OPERATOR Creatinine 26 mg/dL 10/18/2021 OWAT 1:14 PM FLOW MACHINE OPERATOR Albumin/Creatinin 254 (H) <17 mg/g 10/18/2021 OWAT e Ratio 1:14 PM FLOW MACHINE OPERATOR Specimen Anatomical Collection Method Collection Time Receive d Time (Source) Location / / Volume Laterality Urine (Urine, 10/18/2021 10:20 10/18/2021 Clean Catch) AM FLOW MACHINE OPERATOR 12:44 PM FLOW MACHINE OPERATOR Melissa Blackmon LAB URINE ORDERABLES Performing Organization Address City/State/ZIP Code Phon e Number [facility]- [address] [place] [address] [place] [address] System in [place] [address] (ABNORMAL) Urinalysis with Microscopic: Urine, Midstream (10/18/2021 10:20 AM FLOW MACHINE OPERATOR) Analysis Performed At Path logist Time Signature Source Urine, Urine, 10/18/2021 FB60 Midstream 10:31 AM FLOW MACHINE OPERATOR Clarity Clear Clear 10/18/2021 FB60 11:03 AM FLOW MACHINE OPERATOR Color Yellow 10/18/2021 FB60 11:03 AM FLOW MACHINE OPERATOR Comment: ----REFERENCE VALUE---- Colorless Yellow Mitra Blood Negative Negative 10/18/2021 11:03 AM FLOW MACHINE OPERATOR FB60 Nitrite Negative Negative 10/18/2021 11:03 AM FLOW MACHINE OPERATOR FB60 Leukocyte Esterase Negative Negative 10/18/2021 11:[address] FB60 Protein Negative mg/dL 10/18/2021 11:03 AM FLOW MACHINE OPERATOR FB60 Comment: ----REFERENCE VALUE---- Negative Trace Glucose >=1000 (A) Negative mg/dL 10/18/2021 11:03 AM FLOW MACHINE OPERATOR FB60 Ketones, QI(U) Negative Negative mg/dL 10/18/2021 11:03 AM FLOW MACHINE OPERATOR FB60 Bilirubin Negative Negative 10/18/2021 11:03 AM FLOW MACHINE OPERATOR FB60 pH 5.5 5.0 - 8.0 10/18/2021 11:03 AM FLOW MACHINE OPERATOR FB60 Specific [place] 1.010 1.001 - 1.035 10/18/2021 11:03 AM FLOW MACHINE OPERATOR FB60 Urobilinogen 0.2 0.2 - 1.0 mg/dL 10/18/2021 11:[address] FB60 White Blood Cells Occ-3 /hpf 10/18/2021 11:04 AM CS T FB60 Comment: ----REFERENCE VALUE---- Males: 0-3 Females: 0-10 Unknown: 0-10 Red Blood Cells None Seen 0 - 2 /hpf 10/18/2021 11:04 AM FLOW MACHINE OPERATOR FB60 Specimen Anatomical Collection Method Collection Time Receive d Time (Source) Location / / Volume Laterality Urine (Urine, 10/18/2021 10:20 10/18/2021 Midstream) AM FLOW MACHINE OPERATOR 10:31 AM FLOW MACHINE OPERATOR Melissa RiveraS. LAB URINE ORDERABLES Performing Organization Address City/State/ZIP Code Phon e Number [facility]- [address] [place] [address] [place] [address] [facility] [place] [address] Uric Acid (10/09/2021 11:08 AM FLOW MACHINE OPERATOR) P athologist Signature Uric Acid, P 7.5 3.7 - 8.0 10/09/2021 AUST mg/dL 4:28 PM FLOW MACHINE OPERATOR Specimen Anatomical Collection Method Collection Time Receive d Time (Source) Location / / Volume Laterality Blood (Blood, 10/09/2021 11:08 10/09/2021 4:05 Venous) AM FLOW MACHINE OPERATOR PM FLOW MACHINE OPERATOR Melissa GarciaB.S. LAB BLOOD ADD-ON Performing Organization Address City/State/ZIP Code Phon e Number [facility]- [address] [place] [address] [facility] [place] [address] [facility] [address] (ABNORMAL) Renal Function Panel (10/09/2021 11:08 AM FLOW MACHINE OPERATOR) Analysis Performed At Patho logist Time Signature Potassium, P 4.6 3.6 - 5.2 10/09/2021 OWAT mmol/L 11:36 AM FLOW MACHINE OPERATOR Sodium, P 133 (L) 135 - 145 10/09/2021 OWAT mmol/L 11:36 AM FLOW MACHINE OPERATOR Chloride, P 98 98 - 107 10/09/2021 OWAT mmol/L 11:36 AM FLOW MACHINE OPERATOR Bicarbonate, P 22 22 - 29 10/09/2021 OWAT mmol/L 11:35 AM FLOW MACHINE OPERATOR Anion Gap, P 13 7 - 15 10/09/2021 OWAT 11:36 AM FLOW MACHINE OPERATOR BUN (Blood Urea 38 (H) 8 - 24 10/09/2021 OWAT Nitrogen), P mg/dL 11:35 AM FLOW MACHINE OPERATOR Creatinine 1.69 (H) 0.74 - 10/09/2021 OWAT 1.35 mg/dL 11:35 AM FLOW MACHINE OPERATOR eGFR-Black/Afri 44 (L) >=60 10/09/2021 OWAT can Egyptian mL/min/BSA 11:35 AM FLOW MACHINE OPERATOR Comment: ----ADDITIONAL INFORMATION---- Estimated GFR calculated using the 2009 CKD_EPI creatinine equation. eGFR Non-Black/ 38 (L) >=60 mL/min/BSA 10/09/2021 11:35 AM FLOW MACHINE OPERATOR OWAT Egyptian Comment: ----ADDITIONAL INFORMATION---- Estimated GFR calculated using the 2009 CKD_EPI creatinine equation. Calcium, Total, P 8.9 8.8 - 10.2 mg/dL 10/09/2021 11:3 5 AM FLOW MACHINE OPERATOR OWAT Glucose, P 440 (CH) 70 - 140 mg/dL 10/09/2021 12:34 PM FLOW MACHINE OPERATOR OWAT Albumin, P 3.6 3.5 - 5.0 g/dL 10/09/2021 11:35 AM FLOW MACHINE OPERATOR OWAT Phosphorus (Inorganic), P 4.4 2.5 - 4.5 mg/dL 10/09/19 4:28 PM FLOW MACHINE OPERATOR AUST Specimen Anatomical Collection Method Collection Time Receive d Time (Source) Location / / Volume Laterality Blood (Blood, 10/09/2021 11:08 10/09/2021 4:05 Venous) AM FLOW MACHINE OPERATOR PM FLOW MACHINE OPERATOR Narrative [facility] - 10/09/2021 4:28 PM FLOW MACHINE OPERATOR Specimen Information: Specimen ID: [id number] Specimen Type: Blood Specimen Collection Start Date: 10/09/19 11:08 AM Specimen Received Date: 10/09/2021 ??4:0 5 PM Specimen ID: [id number] Specimen Type: Blood Specimen Collection Start Date: 10/09/19 11:08 AM Specimen Received Date: 10/09/2021 11:09 AM Melissa Blackmon LAB BLOOD ADD-ON Performing Organization Address City/State/ZIP Code Phon e Number [facility]- [address] [place] [address] [place] [address] System in [place] [address] [facility] [place] [address] [facility] [address] documented in this [...] documented as of this encounter Care Teams Naval Engineer Relationship Specialty Start Date End Date Shayla Alford D.O. PCP - General Internal Medicine 05/22/[address] [place] [phone] documented as of this encounter
--- OUTSIDE RECORDS SUMMARY | 2022-05-27 11:56 | XMS_ITS | Encounter Summary ---
:1945 Author Organization [facility] Address [address] [place] [address] Care Team Providers Name Role Phone Shayla Alford.OMauro Primary Care Provider [phone] Encounter Details Date Type Department Care Team Description 04/19/2021 Hospital Encounter Department of Radiology Matias muñiz, Pain Hip Left in [place], Aliciao suman Mcguire, D.O. [address] [place] [address] [place], [place] [phone] Social History Tobacco Use Types Packs/Day [...] do you attend moravian or Never 2021 protestant services? Do you [...] have completed or the highest Martin, MEd, TRACK EQUIPMENT OPERATOR, CAYDEN) degree you have received? Sex [...] (FREESTYLE SOFYA) times a day. Use to [facility] scan Sofya sensor 5 times daily [...] [facility]) budesonide-formoteroL Inhale 2 puffs daily 0 10/0 [...] these can be found in the pharmacy [id number] Electronically signed by: Shayla Alford D.O. 04/19/21 [...] of this encounter Care Teams Process Control Operator Relationship Specialty Start Date End Date Shayla Alford D.O. PCP - General Internal Medicine 05/22/[address] [phone] documented as of this encounter
--- OUTSIDE RECORDS SUMMARY | 2022-05-27 11:56 | XMS_ITS | Encounter Summary ---
:1945 Author Organization [facility] Address [address] [place] [address] Care Team Providers Name Role Phone Shayla Alford D.O. Primary Care Provider [phone] Encounter Details Date Type Department Care Team Description 04/19/2021 Episode Changes Remote Patient Brenda Conroy Monitoring [facility] [address] [place] [address] Social History Tobacco Use Types Packs/Day Years [...] do you attend synagogue or Never 2021 druze services? Do you [...] completed or the highest Martin, MEd, ENVIRONMENTAL MARKETER, CAYDEN) degree you have received? Sex Assigned at Date Recorded Male 05/21/2018 2:34 PM CDT documented as of this encounter Plan of Treatment Not on filedocumented as of this encounter Visit Diagnoses Not on filedocumented in this encounter Additional Health Concerns Assessment Noted Time PHQ-9 Depression Total Score: 18 04/28/2018 11:27 AM C DT documented as of this encounter Care Teams Tester Vibrator Equipment Relationship Specialty Start Date End Date Shayla Alford D.O. PCP - General Internal Medicine 05/22/[address] [address] documented as of this encounter
--- OUTSIDE RECORDS SUMMARY | 2022-05-27 11:56 | XMS_ITS | Encounter Summary ---
:1945 Author Organization [facility] Address [address] [place] [address] Care Team Providers Name Role Phone Shayla AlfordOMauro Primary Care Provider [phone] Reason for Visit Reason Comments Form Review [place] med review Canaglifozin Encounter Details Date Type Department Care Team Description 04/18/2021 Clinical Communication Department of Alexys marin Review ([facility] Internal Medicine Shayla queen, review Mehran rodriguez) in [facility] [address] [place] [phone] Social History Tobacco Use Types Packs/Day Years [...] do you attend buddhist or Never 2021 roman catholic services? Do [...] have completed or the highest Martin, MEd, SKEIN WINDING OPERATOR, CAYDEN) degree you have received? Sex Assigned at Date Recorded Male 05/21/2018 2:34 PM CDT documented as of this encounter Miscellaneous Notes Telephone Encounter - Tari Crystal - 04/20/2021 10:28 AM CDT Received back completed form. Form faxed back to the listed facility. Scanned into [facility] Telephone Encounter - Patience Can - 04/18/2021 12:58 PM CDT Form was emailed to Dr. Reid for electronic review/signature. STOCK ORDER LISTER:GA PHONE NUMBER: INFO REQUESTEDA med review Eusebia INSTRUCTIONS: fax to [phone] documented in this encounter Plan of Treatment Not on filedocumented as of this encounter Visit Diagnoses Not on filedocumented in this encounter Additional Health Concerns Assessment Noted Time PHQ-9 Depression Total Score: 18 04/28/2018 11:27 AM C DT documented as of this encounter Care Teams Coal Gasification Technician Relationship Specialty Start Date End Date Shayla Alford D.O. PCP - General Internal Medicine 05/22/202199 [address] [address] documented as of this encounter
--- OUTSIDE RECORDS SUMMARY | 2022-05-27 11:56 | XMS_ITS | Encounter Summary ---
:1945 Author Organization [facility] Address [address] [place] [address] Care Team Providers Name Role Phone Shayla Alford D.O. Primary Care Provider [phone] Encounter Details Date Type Department Care Team Description 03/12/2021 Clinical Communication Department of Internal Andrei Dejesus Medicine in [place], [place], [place].O Mauro [place] [address] [place] [phone] Social History Tobacco Use Types Packs/Day Years [...] do you attend jew or Never 2021 samaritan services? Do you [...] documented as of this encounter Care Teams Labor/Excavator Relationship Specialty Start Date End Date Shayla Alford D.O. PCP - General Internal Medicine 05/22/20 [address] [place] [address] documented as of this encounter
--- OUTSIDE RECORDS SUMMARY | 2022-05-27 11:56 | XMS_ITS | Encounter Summary ---
:1945 Author Organization [facility] Address [address] [place] [address] Care Team Providers Name Role Phone Shayla Alford D.O. Primary Care Provider [phone] Reason for Visit Reason Onset Date Comments Hypertension 04/25/2021 Welcome Call 04/25/2021 Encounter Details Date Type Department Care Team Description 04/25/2021 Remote Monitoring Remote Patient Prateek Padilla; Monitoring Donna Duque R.N. Welcome Call [facility] [address] [facility] ([place]) [place] [address] Social History Tobacco Use Types Packs/Day Years [...] do you attend rastafarian or Never 2021 adventist services? Do you [...] completed or the highest Martin, MEd, LEAD TINNER, CAYDEN) degree you have received? Sex Assigned at Date Recorded Male 05/21/2018 2:34 PM CDT documented as of this encounter Plan of Treatment Not on filedocumented as of this encounter Visit Diagnoses Not on filedocumented in this encounter Additional Health Concerns Assessment Noted Time PHQ-9 Depression Total Score: 18 04/28/2018 11:27 AM C DT documented as of this encounter Care Teams Rehabilitation Physician Relationship Specialty Start Date End Date Shayla Alford D.O. PCP - General Internal Medicine 05/22/[address] [address] documented as of this encounter
--- OUTSIDE RECORDS SUMMARY | 2022-05-27 11:56 | XMS_ITS | Encounter Summary ---
:1945 Author Organization [facility] Address [address] [place] [address] Care Team Providers Name Role Phone Shayla Alford D.O. Primary Care Provider [phone] Reason for Referral Outpatient (Routine) - Closed Specialty Diagnoses / Procedures Referred By Contact Refer red To Contact Nephrology and Melissa Ferrer [place] [facility] Hypertension M.BMauroBMauroS. [address] [place] [address] Referral ID Status Reason Start Date Expiration Date Visits Requ ested Visits Authorized [id number] Closed 04/12/2021 04/12/2022 1 1 Scheduling Instructions 2 pm please Outpatient (Routine) - Closed Specialty Diagnoses / Procedures Referred By Contact Refer red To Contact Diagnoses Chronic Kidney Disease (CKD), Stage 3b Glomerular Filtration Rate (GFR) 30 To 44 (HCC) Hypertension Essential Primary Melissa Ferrer M.B.B.S. [facility] Procedures US Kidneys with Renal Artery Doppler [address] [place] [address] Referral ID Status Reason Start Date Expiration Date Visits Requ ested Visits Authorized [id number] Closed 04/12/2021 04/12/2022 1 1 Reason for Visit Reason Comments Chronic Kidney Disease Hypertension Outpatient (Routine) - Closed Specialty Diagnoses / Procedures Referred By Contact Refer red To Contact Nephrology and Diagnoses Diabetes Mellitus Type 2 With Diabetic Chronic Kidney Disease Hyperglycemic (HCC) Chronic Kidney Disease (CKD), Stage 3b Glomerular Filtration Rate (GFR) 30 To 44 (HCC) Anemia In Chronic Kidney Disease [facility] Hypertension Tulio Mcguire [address] [place] [address] Referral ID Status Reason Start Date Expiration Date Visits Requ ested Visits Authorized [id number] Closed 02/13/2021 02/13/2022 1 1 Encounter Details Date Type Department Care Team Description 04/12/2021 Comprehensive Visit Division of Prateek Ferrer Essential Primary (Primary Dx); Nephrology and Melissa, Diabetes Cleo itus Type 2 With Diabetic Chronic Kidney Disease Hyperglycemic (HCC); Hypertension in M.B.B.S. Chronic Kidney Disease (CKD), Stage 3b G lomerular Filtration Rate (GFR) 30 To 44 (HCC); [place], [place] [address] Anemia In Chronic Kidney Dis ease [address] [facility], [address] [place] [phone] Social History Tobacco Use Types Packs/Day Years [...] do you attend jain or Never 2021 pentecostal services? Do you belong to any clubs or No 10/09/2021 organizations such as jain groups, unions, fraRoomtag or athletic groups, or school groups? How [...] completed or the highest Martin, MEd, PAINTER ORDNANCE, CAYDEN) degree you have received? Sex Assigned [...] has struggled with obtaining this from the [place] and he will reach out to his primary care physician so that this can be taken care of. I recommended that they also reach out to the [place] diabetic specialist and get an appointment with [...] Its performance characteri stics were determined by [facility] in a manner co nsistent with [...] City/State/ZIP Code Phon e Number [facility] - [address] [place], [place] [address] [facility] [place] [address] [facility] [address] (ABNORMAL) Urinalysis with [...] City/State/ZIP Code Phon e Number [facility] - [address] [place], [place] [address] [facility] [place] [place] [address] [facility] [address] [place] Kidneys with Renal [...] [facility]- [address] [place], [place] [address] [place] [address] LAB [facility]UST [facility] - [place], [place] [address] [place] [address] (ABNORMAL) Renal Function [...] eGFR-Black/Afri 47 (L) >=60 04/18/2021 OW[place] can Vietnamese mL/min/BSA 9:31 AM CDT Comment: ----ADDITIONAL INFORMATION---- Estimated GFR calculated using the 2009 CKD_EPI creatinine equation. eGFR Non-Black/ 40 (L) >=60 mL/min/BSA 04/18/2021 9:31 AM CDT [facility] Vietnamese Comment: ----ADDITIONAL INFORMATION---- Estimated GFR calculated [...] 04/18/20 4:31 Venous) CDT PM CDT Narrative [facility] - 04/18/2021 4:50 PM CDT Specimen Information: Specimen ID: [id number] Specimen Type: Blood Specimen Collection Start Date: 04/18/20 ??9:05 AM Specimen Received Date: 04/18/2021 ??4:3 1 PM Specimen ID: [id number] Specimen Type: Blood Specimen Collection Start Date: 04/18/20 ??9:05 AM Specimen Received Date: 04/18/2021 ??9:0 6 AM Melissa Blackmon LAB BLOOD ADD-ON Performing Organization Address City/State/ZIP Code Phon e Number [facility]- [address] [place] [address] [place] [address] System in [place] [address] [place] [address] [facility] [address] (ABNORMAL) Albumin, Random, [...] Code Phon e Number [facility]- [address] [place] [address] [place] [address] System in [place] [address] (ABNORMAL) Urinalysis with Microscopic: [...] 8.0 04/18/2021 9:23 AM CDT [place] Specific [place] 1.009 1.001 - 1.035 04/18/2021 9:23 AM [...] Code Phon e Number [facility]- [address], [place] [address] [place] [address] System in [place] [facility] documented in this encounter Visit Diagnoses Diagnosis [...] documented as of this encounter Care Teams Subwarehouse Supervisor Relationship Specialty Start Date End Date Shayla Alford D.O. PCP - General Internal Medicine 05/22/202199 [place] [address] documented as of this encounter
--- OUTSIDE RECORDS SUMMARY | 2022-05-27 11:56 | XMS_ITS | Encounter Summary ---
:1945 Author Organization [facility] Address [address] [place] [address] Care Team Providers Name Role Phone Shayla Alford D.O. Primary Care Provider [phone] Reason for Visit Reason Comments consult request Encounter Details Date Type Department Care Team Description 03/09/2021 Clinical Jesus Cruz, consul t request Communication Center for Philip Todd Clinical Regeneration [address] [email or web address] in [place], [place] [address] [place] [address] [place], [place] [phone] (Work) [phone] Social History Tobacco Use Types Packs/Day Years [...] do you attend adventist or Never 2021 sabianist services? Do you [...] have completed or the highest Martin, MEd, REGISTERED CLIENT ASSOCIATE, CAYDEN) degree you have received? Sex [...] back to the Heart failure Clinic in [place] for follow-up. Disposition/Recommendation: recommended continue engagement in [...] documented as of this encounter Care Teams Fitness Services Manager Relationship Specialty Start Date End Date Shayla Alford D.O. PCP - General Internal Medicine 05/22/20 [address], [place] [address] documented as of this encounter
--- OUTSIDE RECORDS SUMMARY | 2022-05-27 11:56 | XMS_ITS | Encounter Summary ---
:1945 Author Organization [facility] Address [address] [place] [address] Care Team Providers Name Role Phone Shayla Alford D.O. Primary Care Provider [phone] Encounter Details Date Type Department Care Team Description 03/02/2021 Clinical Communication Department of Internal Andrei Dejesus Medicine in [place], [place], [place].O Mauro [place] [address] [place] [phone] Social History Tobacco Use Types Packs/Day Years [...] do you attend religious or Never 2021 mormon services? Do you [...] have completed or the highest Martin, MEd, CARD CLOTHIER, CAYDEN) degree you have received? Sex Assigned [...] Invokana and chart notes faxed to the [place] in [place]. They were also wondering on the order for the home health nurse to come out once a week for a vitalscheck. They want it sent to [facility]. Telephone Encounter - Ai Tellez L.PMauroNMauro [...] for Communication: Patient calling Dr. Madrigal from [facility] wanted you aware that Jonnathan's NT PRO BNP is increased, almost double what it was and he wanted you to be aware. She also mentioned the Invokana is about $650.00 a month which it way too much for them to cover the cost - if you need him to be on Invokana or Trulicity that you should have Dr. Cline from the [facility] order it for him andthen it is [...] documented as of this encounter Care Teams Top Bottom Attaching Machine Operator Relationship Specialty Start Date End Date Shayla Alford D.O. PCP - General Internal Medicine 05/22/[address] [address] documented as of this encounter
--- OUTSIDE RECORDS SUMMARY | 2022-05-27 11:56 | XMS_ITS | Encounter Summary ---
:1945 Author Organization [facility] Address [address] [place] [address] Care Team Providers Name Role Phone Shayla Alford D.O. Primary Care Provider [phone] Encounter Details Date Type Department Care Team Description 04/18/2021 Hospital Encounter Department of [facility], Chronic Kidney Disease (CKD), Stage 3b Glomerular Filtration Rate (GFR) 30 To 44 (HCC); Laboratory Medicine Prateek Torres Essential [facility] [place] [facility] [address] [facility] [address] [place] [phone] Social History Tobacco Use Types Packs/Day Years [...] you attend oriental orthodox or Never 2021 taoist services? Do you [...] completed or the highest Martin, MEd, GLASS ARTIST, CAYDEN) degree you have received? Sex Assigned [...] (FREESTYLE SOFYA) times a day. Use to [facility] scan Sofya sensor 5 times [...] NEEDLE, DIABETIC Yani Fine 30 0 [facility] disposable needles. For use with Insulin Pens, 4 times daily SYRINGE-NEEDLE,INSULIN,0 0 .5 ML (INSULIN SYRINGE [facility]) budesonide-formoteroL Inhale 2 puffs daily [...] Albumin, Random, Urine (04/18/2021 9:04 AM CDT) [facility] gist Method Time Signature Microalbumin 149.0 mg/L [...] City/State/ZIP Code Phon e Number [facility]- [address] [place] [address] [place] [address] System in [place] [address] (ABNORMAL) Urinalysis with Microscopic: [...] 8.0 04/18/2021 9:23 AM CDT OW[place] Specific [place] 1.009 1.001 - 1.035 04/18/2021 9:23 AM [...] City/State/ZIP Code Phon e Number [facility]- [address] [place] [address] [place] [address] System in [place] [address] documented in this encounter Visit Diagnoses Diagnosis Chronic Kidney Disease (CKD), Stage 3b G lomerular Filtration Rate (GFR) 30 To 44 (HCC) Hypertension Essential Primary documented in this encounter Additional Health Concerns Assessment Noted Time PHQ-9 Depression Total Score: 18 04/28/2018 11:27 AM C DT documented as of this encounter Care Teams Track Moving Machine Operator Relationship Specialty Start Date End Date Shayla Alford D.O. PCP - General Internal Medicine 05/22/202199 [place] [address] documented as of this encounter
--- OUTSIDE RECORDS SUMMARY | 2022-05-27 11:56 | XMS_ITS | Encounter Summary ---
:1945 Author Organization [facility] Address [address] [place] [address] Care Team Providers Name Role Phone Shayla Alford D.O. Primary Care Provider [phone] Reason for Referral Outpatient (Routine) - Closed Specialty Diagnoses / Procedures Referred By Contact Refer red To Contact [facility] Internal ARMAAN Alford SE, D.O. [address] [place] [phone] Referral ID Status Reason Start Date Expiration Date Visits Requ ested Visits Authorized [id number] Closed 04/19/2021 04/19/2022 1 1 Scheduling Instructions Schedule one hour due to complex medical history CHF, diabetes type 2, copd, hip pain , C KD Reason for Visit Reason Comments Med Management Diabetes Mellitus Outpatient (Routine) - Closed Specialty Diagnoses / Procedures Referred By Contact Refer red To Contact [facility] ARMAAN Alford SE, D.O. [address] [place] [phone] Referral ID Status Reason Start Date Expiration Date Visits Requ ested Visits Authorized [id number] Closed 03/14/2021 03/14/2022 1 1 Encounter Details Date Type Department Care Team Description 04/19/2021 Office Visit Department of Internal Rocío sanders Kidney Disease (CKD), Stage 3b Glomerular Filtration Rate (GFR) 30 To 44 ([facility]) (Primary Dx); Medicine in [place], , Shayla D .O. 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 Do you [...] completed or the highest Martin, MEd, MATERIAL STRESS TESTER, CAYDEN) degree you have received? Sex [...] at length management. We did call the [facility] and spoke with both the patient's PCP in the [facility] [Dr. Johnson Mcnamara] as well as the pharmacist in charge of the diabetes program at the [facility]. We discussed that the patient is not a good candidate for metformin due to decline in kidney function and a GFR of 30 just 3 months ago now back up to 40. We recommended the use of SGLT-2 for kidney and heart benefits. The patient will need to stay with the [facility] in order for him to receive the [employer] Sofya Monitoring Program. They stated that if the patient has his diabetes managed at another clinic, they will take the monitor back. During his hospitalization in [facility], the patient was given oxygen. Today we [...] at length management. We did call the [facility] and spokewith both [facility] [Dr. [facility] Mcnamara] as well as the pharmacist in charge of the diabetes program at the [facility]. We discussed that the patient is not a good candidate for metformin due todecline in kidney function and a GFR of 30 just 3 months ago now back up to 40. We recommended the use of SGLT-2 for kidney and heart benefits. The [facility] need [facility] with the [facility] in order for him to receive the [employer] Sofya Monitoring Program. They stated that if [...] managing is ordered today: - Remote monitoring ([facility] Care); Future; Expected date: 04/19/2021 I [...] their behalf by Sarai Cason, a trained electromedical equipment repairer. The creation of this recordis based on the scribe remotely listening to the visit and the provider's statements to them. This do cument has been checked and approved by the attending provider. Time spent 62 minutes Electronically signed by: Shayla Alford D.O. 04/20/21 11:01 AM CDT documented in this encounter Plan of Treatment Scheduled Referrals Name Type Priority Associated Diagnoses Order S [facility] Internal Outpatient Referral Routine Ex [...] e Number [facility]- [address] [place] [address] [facility] [place] [address] System in [place] [address] DX Hip And Pelvis [...] documented as of this encounter Care Teams Aerial Planting And Cultivation Manager Relationship Specialty Start Date End Date Shayla Alford D.O. PCP - General Internal Medicine 05/22/[address] [address] documented as of this encounter
--- OUTSIDE RECORDS SUMMARY | 2022-05-27 11:56 | XMS_ITS | Encounter Summary ---
:1945 Author Organization [facility] Address [address] [place] [address] Care Team Providers Name Role Phone Shayla Alford D.O. Primary Care Provider [phone] Encounter Details Date Type Department Care Team Description 03/21/2021 Hospital Encounter Department of Westley Nguyen [facility] Medication Laboratory Medicine n, Gianna Mcguire in [place], [address] [place] [phone] Social History Tobacco Use Types Packs/Day [...] have completed or the highest Martin, MEd, PAPER STACKER, CAYDEN) degree you have received? Sex Assigned [...] times daily SYRINGE-NEEDLE,INSULIN,0.5 0 ML (INSULIN SYRINGE [facility]) azithromycin (ZITHROMAX) Take [...] Hepatic Function Panel (03/21/2021 9:29 AM CDT) [facility] Method Time Signature Bilirubin, Total, P 0.3 [...] City/State/ZIP Code Phon e Number [facility]- [address] [place] [address] [place] [address] System in [place] [address] documented in this encounter Visit Diagnoses Diagnosis High Risk Medication documented in this encounter Additional Health Concerns Assessment Noted Time PHQ-9 Depression Total Score: 18 04/28/2018 11:27 AM C DT documented as of this encounter Care Teams Shearer Screen Measurer And Trimmer Relationship Specialty Start Date End Date Shayla Alford D.O. PCP - General Internal Medicine 05/22/[address] [place] [address] documented as of this encounter
--- OUTSIDE RECORDS SUMMARY | 2022-05-27 11:56 | XMS_ITS | Encounter Summary ---
:1945 Author Organization [facility] Address [address] [place] [address] Care Team Providers Name Role Phone Shayla Alford D.O. Primary Care Provider [phone] Reason for Visit Reason Comments Follow-up Encounter Details Date Type Department Care Team Description 03/09/2021 Clinical Communication Manuel Shabazz Follow-up Center for Pato Barber Transplantation and [address] [place] [address] Clinical [facility] in [place], [place] [address] [place] [address] [place] [address] (Work) [phone] Social History Tobacco Use Types Packs/Day Years [...] do you attend anabaptist or Never 2021 jewish services? Do you [...] completed or the highest Martin, MEd, MECHANICAL DESIGN TECHNICIAN, CAYDEN) degree you have received? Sex Assigned at Date Recorded Male 05/21/2018 2:34 PM CDT documented as of this encounter Plan of Treatment Not on filedocumented as of this encounter Visit Diagnoses Not on filedocumented in this encounter Additional Health Concerns Assessment Noted Time PHQ-9 Depression Total Score: 18 04/28/2018 11:27 AM C DT documented as of this encounter Care Teams Printing Press Machine Operator Relationship Specialty Start Date End Date Shayla Alford D.O. PCP - General Internal Medicine 05/22/[address] [address] documented as of this encounter
--- OUTSIDE RECORDS SUMMARY | 2022-05-27 11:56 | XMS_ITS | Encounter Summary ---
:1945 Author Organization [facility] Address [address] [place] [address] Care Team Providers Name Role Phone Shayla Alford D.O. Primary Care Provider [phone] Encounter Details Date Type Department Care Team Description 04/18/2021 Hospital Encounter Department of [place] Chroni c Kidney Disease (CKD), Stage 3b Glomerular Filtration Rate (GFR) 30 To 44 (HCC); Laboratory Medicine nShayla D. O. Chronic Systolic (Congestive) Heart Fail ure (HCC); in [place], [address] Hypertension Es sential Primary [facility] [address] [place] [address] Social History Tobacco Use [...] do you attend orthodox or Never 2021 church services? Do you [...] have completed or the highest Martin, MEd, RESEARCH MANUFACTURING OPERATOR, CAYDEN) degree you have received? Sex [...] SOFYA) times a day. Use to [facility] scan Sofya sensor 5 times [...] PEN NEEDLE, DIABETIC Yani Fine 30 0 [facility] disposable needles. For use with Insulin Pens, 4 times daily SYRINGE-NEEDLE,INSULIN,0 0 .5 ML (INSULIN SYRINGE [facility]) budesonide-formoteroL Inhale 2 puffs daily [...] City/State/ZIP Code Phon e Number [facility]- [address] [place] [address] [facility] [place]UST [place] [address] [facility] [address] (ABNORMAL) Renal Function [...] eGFR-Black/Afri 47 (L) >=60 04/18/2021 [place] can [place] mL/min/BSA 9:31 AM CDT Comment: ----ADDITIONAL INFORMATION---- Estimated GFR calculated using the 2009 CKD_EPI creatinine equation. eGFR Non-Black/ 40 (L) >=60 mL/min/BSA 04/18/2021 9:31 AM CDT [place] Comment: ----ADDITIONAL INFORMATION---- Estimated GFR calculated using [...] 04/18/20 4:31 Venous) CDT PM CDT Narrative [facility] - 04/18/2021 4:50 PM CDT Specimen Information: Specimen ID: [id number] Specimen Type: Blood Specimen Collection Start Date: 04/18/20 ??9:05 AM Specimen Received Date: 04/18/2021 ??4:3 1 PM Specimen ID: [id number] Specimen Type: Blood Specimen Collection Start Date: 04/18/20 ??9:05 AM Specimen Received Date: 04/18/2021 ??9:0 6 AM Melissa Blackmon LAB BLOOD ADD-ON Performing Organization Address City/State/ZIP Code Phon e Number [facility]- [address] [place] [address] [place] [address] System in [place] [address] [place]UST [facility] [place] [address] [facility] [address] (ABNORMAL) NT-Pro B-Type [...] City/State/ZIP Code Phon e Number [facility]- [address] [place] [address] [place] [address] System in [place] [address] (ABNORMAL) CBC with Differential, Blood (04/18/2021 9:05 AM CDT) [facility] Method Time Signature Hemoglobin 12.2 (L) [...] City/State/ZIP Code Phon e Number [facility]- [address] [address] [facility] [place] [address] System in [place] [address] [facility] [[email or web address]] documented in this encounter Visit Diagnoses Diagnosis Chronic Kidney Disease (CKD), Stage 3b G lomerular Filtration Rate (GFR) 30 To 44 (HCC) Chronic Systolic (Congestive) Heart Fail ure (HCC) Hypertension Essential Primary documented in this encounter Additional Health Concerns Assessment Noted Time PHQ-9 Depression Total Score: 18 04/28/2018 11:27 AM C DT documented as of this encounter Care Teams Collection Agent Relationship Specialty Start Date End Date Shayla Alford D.O. PCP - General Internal Medicine 05/22/[address]199 [place] [address] documented as of this encounter
--- OUTSIDE RECORDS SUMMARY | 2022-05-27 11:56 | XMS_ITS | Encounter Summary ---
:1945 Author Organization [facility] Address [address] [place] [address] Care Team Providers Name Role Phone Shayla Alford D.O. Primary Care Provider [phone] Reason for Visit Outpatient (Routine) - Closed Specialty Diagnoses / Procedures Referred By Contact Refer red To Contact Pulmonary Medicine Diagnoses Cough Unspecified Type Dyspnea Multifactorial Asthma Extrinsic Moderate (HCC) [facility] Shayla D.Sabrina [address], [place] [address] Referral ID Status Reason Start Date Expiration Date Visits V isits Requested Authorized [id number] Closed Specialty 03/02/2021 03/02/2022 1 1 Services Required Encounter Details Date Type Department Care Team Description 03/09/2021 Comprehensive Visit Division of [place], Cough; Pulmonary Medicine Pato Lr Dyspnea Multifactorial; in [place], [facility] [address] [facility] Asthma Extrinsic Moderate (HCC) [place], [place] [address] [facility] [address] [place], [place] [phone] (Work) [phone] Social History Tobacco Use Types Packs/Day Years [...] do you attend voodoo or Never 2021 cheondoism services? Do you [...] have completed or the highest Martin, MEd, ELECTRONIC WARFARE TECHNICIAN, CAYDEN) degree you have received? Sex [...] SUBJECTIVE Referred by: Shayla Alford D.O. [address] [address] CHIEF COMPLAINT / REASON FOR VISIT Mr. [...] to an agent orange exposure in the [place]. He has been followed for his [...] 24 hours in the local hospital in [facility] due to balance problems and a fall [...] documented as of this encounter Care Teams Neurology Manager Relationship Specialty Start Date End Date Shayla Alford D.O. PCP - General Internal Medicine 05/22/[address] [place] [address] documented as of this encounter
--- OUTSIDE RECORDS SUMMARY | 2022-05-27 11:56 | XMS_ITS | Encounter Summary ---
:1945 Author Organization [facility] Address [address] [place] [address] Care Team Providers Name Role Phone Shayla Alford D.O. Primary Care Provider [phone] Encounter Details Date Type Department Care Team Description 04/12/2021 Documentation Division of Gastroenterology Justin feng in [facility] Jem P [address] [facility] [address] [place] [address] [place], [place] [phone] Social History Tobacco Use Types Packs/Day Years [...] do you attend jew or Never 2021 temple services? Do you [...] have completed or the highest Martin, MEd, REINSURANCE CLERK, CAYDEN) degree you have received? Sex Assigned at Date Recorded Male 05/21/2018 2:34 PM CDT documented as of this encounter Plan of Treatment Not on filedocumented as of this encounter Visit Diagnoses Not on filedocumented in this encounter Additional Health Concerns Assessment Noted Time PHQ-9 Depression Total Score: 18 04/28/2018 11:27 AM C DT documented as of this encounter Care Teams Hybrid Tester Relationship Specialty Start Date End Date Shayla Alford D.O. PCP - General Internal Medicine 05/22/[address] [phone] documented as of this encounter
--- OUTSIDE RECORDS SUMMARY | 2022-05-27 11:56 | XMS_ITS | Encounter Summary ---
:1945 Author Organization [facility] Address [address] [place] [address] Care Team Providers Name Role Phone Shayla Alford D.O. Primary Care Provider [phone] Reason for Visit Reason Onset Date Comments [...] Conroy Xander ome Call Monitoring K (Completed [place] [facility] Call with patient, [address] (Work) shared info on [place], [place] Remote Monitor [facility] [phone] Terms of Servic e, equipment order ed [...] do you attend quaker or Never 2021 christian services? Do you [...] have completed or the highest Martin, MEd, INSPECTOR ASSEMBLIES AND INSTALLATIONS, CAYDEN) degree you have received? Sex Assigned [...] Monitor: [employer] Blood Pressure Monitor model KA-010JFI-Mp (FDA R444823) or Rios Skye Blood Pressure Monitor model H-AE274WYN (FDA A687544) ? ? Weight Scale: MyCalsys Weight Scale model XL-700, Rios Skye Weight Scale model 399663, or [employer] Weight Scale model NA-129WMJ-Me ??? Pulse Oximeter: Nonin Pulse Oximeter model 3230 ([facility] J548797) or Nonin Pulse Oximeter model 9560([facility] [id number]) ? ? Thermometer: [employer]D Medical Thermometer model DT-105 or [facility] Basal Thermometer model 08-365 ??? Continuous Monitor: Everion V1 ([facility] [id number]) Remote Monitoring nurses address patient's questions pertaining to use of the equipment at patient'sinitial assessment visit. documented in this encounter Plan of Treatment Not on filedocumented as of this encounter Visit Diagnoses Not on filedocumented in this encounter Additional Health Concerns Assessment Noted Time PHQ-9 Depression Total Score: 18 04/28/2018 11:27 AM C DT documented as of this encounter Care Teams Merchandising Coordinator Relationship Specialty Start Date End Date Shayla Alford D.O. PCP - General Internal Medicine 05/22/[address] [address] documented as of this encounter
--- OUTSIDE RECORDS SUMMARY | 2022-05-27 11:56 | XMS_ITS | Encounter Summary ---
:1945 Author Organization [facility] Address [address] [place] [address] Care Team Providers Name Role Phone Shayla Alford D.O. Primary Care Provider [phone] Reason for Referral Outpatient (Routine) - Closed Specialty Diagnoses / Procedures Referred By Contact Refer red To Contact [facility] ARMAAN Alford SE, D.O. [address] [place] [phone] Referral ID Status Reason Start Date Expiration Date Visits Requ ested Visits Authorized [id number] Closed 03/14/2021 03/14/2022 1 1 Scheduling Instructions Diabetes type II, CHF , asthma Schedule one hour Reason for Visit Reason Comments Follow-up Outpatient (Routine) - Closed Specialty Diagnoses / Procedures Referred By Contact Refer anna To Contact [facility] ARMAAN Alford SE, D.O. [address] [place] [phone] Referral ID Status Reason Start Date Expiration Date Visits Requ ested Visits Authorized [id number] Closed 12/12/2020 12/12/2021 1 1 Encounter Details Date Type Department Care Team Description 03/14/2021 Office Visit Department of Internal Rocío sanders Kidney Disease (CKD), Stage 3b Glomerular Filtration Rate (GFR) 30 To 44 ([facility]) (Primary Dx); Medicine in [place], Shayla D .O. Chronic Systolic (Congestive) Heart Fail ure (HCC); [place] [address] Diabetes Mellitus Type 2 Hyperglycemia ( HCC); [address] [place], [place] Diabetes Mellitus Type 2 Wit h Diabetic Neuropathy (HCC); [place] [address] Hypertension Essential Primary; [address] Bronchitis Chronic Simple (H CC); Hyperlipidemia; [phone] Unsteadiness Ga it Disorder Non Orthopedic; (Fax) [...] do you attend buddhist or Never 2021 yazidism services? Do you [...] have completed or the highest Martin, MEd, TREAD BUILDER, CAYDEN) degree you have received? Sex [...] a follow-up. The patient presented to the [facility] [[place], [place]] on 02/25/2021 for acute on chronicHFpEF and acute asthma exacerbation. Due to his hospitalization being in [place] his notes are not in our system [...] he was switched from metformin to Invokana. Jonnathan has had significant benefit from using [...] (HCC). PLAN: The patient presented to the [facility] [[place], [place]] on 02/25/2021 for acute on chronic HFpEF and acute asthma exacerbation. Due to his hospitalization being in [place] his notes are not in our system [...] Neuropathy (HCC). PLAN: His provider at the [facility] was interested in starting him on a [...] by Sarai Cason, a trained medical office coordinator. The creation of this recordis based on the scribe remotely listening to the visit and the provider's statements to them. This do cument has been checked and approved by the attending provider. Time spent 32 minutes Electronically signed by: Shayla Alford D.O. 03/14/21 2:09 PM CDT documented in this encounter Plan of Treatment Scheduled Referrals Name Type Priority Associated Diagnoses Order [facility] Internal Outpatient Referral Routine Ex [...] Code Phon e Number [facility]- [address] [place] [address] [place] [address] System in [place] [address] [facility] (ABNORMAL) CBC with Differential, Blood (04/18/2021 9:05 AM CDT) [facility] Method Time Signature Hemoglobin 12.2 (L) [...] Code Phon e Number [facility]- [address] [place] [address] [place] [address] System in [place] [address] [place] [address] documented in this encounter Visit Diagnoses Diagnosis [...] documented as of this encounter Care Teams Cabin Man Relationship Specialty Start Date End Date Shayla Alford D.O. PCP - General Internal Medicine 05/22/[address] [address] documented as of this encounter
--- OUTSIDE RECORDS SUMMARY | 2022-05-27 11:56 | XMS_ITS | Encounter Summary ---
:1945 Author Organization [facility] Address [address] [place] [address] Care Team Providers Name Role Phone Shayla Alford D.O. Primary Care Provider [phone] Encounter Details Date Type Department Care Team Description 03/02/2021 Clinical Communication Department of Internal Andrei Dejessu Medicine in [place], [place], [place].O [place] [address] [place] [phone] Social History Tobacco Use Types Packs/Day Years [...] do you attend baptism or Never 2021 scientologist services? Do you [...] completed or the highest Martin, MEd, SENIOR NET C DEVELOPER, CAYDEN) degree you have received? Sex [...] documented as of this encounter Care Teams Emulsion Operator Relationship Specialty Start Date End Date Shayla Alford D.O. PCP - General Internal Medicine 05/22/[address] [phone] documented as of this encounter
--- OUTSIDE RECORDS SUMMARY | 2022-05-27 11:56 | XMS_ITS | Encounter Summary ---
:1945 Author Organization [facility] Address [address] [place] [address] Care Team Providers Name Role Phone Shayla Alford D.O. Primary Care Provider [phone] Reason for Visit Reason Comments Medical Information Encounter Details Date Type Department Care Team Description 04/19/2021 Clinical Communication Department of Alexys Wheeler [facility] Information Internal Medicine en, Shayla in [place] [address] [place] [address] Social History Tobacco Use [...] do you attend bahai or Never 2021 gnosticist services? Do you belong to any clubs or No 10/09/2021 organizations such as bahai groups, unions, fraRed Tricycle or athletic groups, or school groups? How [...] have completed or the highest Martin, MEd, HALL COORDINATOR, CAYDEN) degree you have received? Sex Assigned at Date Recorded Male 05/21/2018 2:34 PM CDT documented as of this encounter Miscellaneous Notes Telephone Encounter - Kayli Rivera LMauroP.N. - 04/19/2021 1:55 PM CDT Fax order to [phone]. Telephone Encounter - Raheem Patel - 04/19/2021 11:36 AM CDT Reason for Communication: Patients Diallo called and she wanted to give jacki the info for theoxygen supplier. [facility]. [address] [place] [address] is the info she gave Current Can [...] documented as of this encounter Care Teams Experience Designer Relationship Specialty Start Date End Date Shayla Alford D.O. PCP - General Internal Medicine 05/22/[address] [phone] documented as of this encounter
--- OUTSIDE RECORDS SUMMARY | 2022-05-27 11:56 | XMS_ITS | Encounter Summary ---
:1945 Author Organization [facility] Address [address] [place] [address] Care Team Providers Name Role Phone Shayla Alford D.O. Primary Care Provider [phone] Reason for Referral Outpatient (Routine) - Closed Specialty Diagnoses / Procedures Referred By Contact Refer red To Contact Diagnoses Chronic Kidney Disease (CKD), Stage 3b Glomerular Filtration Rate (GFR) 30 To 44 (HCC) Hypertension Essential Primary Melissa Ferrer M.B.B.SMauro [facility] Procedures US Kidneys with Renal Artery Doppler [address] [place] [address] Referral ID Status Reason Start Date Expiration Date Visits Requ ested Visits Authorized [id number] Closed 04/12/2021 04/12/2022 1 1 Reason for Visit Outpatient (Routine) - Closed Specialty Diagnoses / Procedures Referred By Contact Refer red To Contact Diagnoses Chronic Kidney Disease (CKD), Stage 3b Glomerular Filtration Rate (GFR) 30 To 44 (HCC) Hypertension Essential Primary Melissa Ferrer M.B.B.S. [facility] Procedures US Kidneys with Renal Artery Doppler [address] [place] [address] Referral ID Status Reason Start Date Expiration Date Visits Requ ested Visits Authorized [id number] Closed 04/12/2021 04/12/2022 1 1 Encounter Details Date Type Department Care Team Description 04/27/2021 Hospital Encounter Department of [facility], Chronic Kidney Disease (CKD), Stage 3b Glomerular Filtration Rate (GFR) 30 To 44 (HCC); Radiology, Dayo Richardson [facility] Primary Building, in [place], [place] [address] [facility] [address] [place] [phone] Social History Tobacco Use Types Packs/Day Years [...] do you attend scientologist or Never 2021 yarsanism services? Do you [...] completed or the highest Martin, MEd, MARINE ELECTRONICS TECHNICIAN, CAYDEN) degree you have received? Sex [...] (FREESTYLE SOFYA) times a day. Use to [facility] scan Sofya sensor 5 times daily and [...] [facility]) budesonide-formoteroL Inhale 2 puffs daily 0 10/0 [...] documented as of this encounter Care Teams Communication Signals Intelligence Relationship Specialty Start Date End Date Shayla Alford D.O. PCP - General Internal Medicine 05/22/[address] [place] [phone] documented as of this encounter
--- OUTSIDE RECORDS SUMMARY | 2022-05-27 11:56 | XMS_ITS | Encounter Summary ---
:1945 Author Organization [facility] Address [address] [place] [address] Care Team Providers Name Role Phone Shayla Alford D.O. Primary Care Provider [phone] Encounter Details Date Type Department Care Team Description 04/19/2021 Episode Changes Remote Patient Brenda Conroy Monitoring [facility] [address] [place] [address] Social History Tobacco Use Types Packs/Day Years [...] have completed or the highest Martin, MEd, WORK STATION SUPPORT SPECIALIST, CAYDEN) degree you have received? [...] of this encounter Care Teams Line Haul Driver Relationship Specialty Start Date End Date Shayla Alford D.O. PCP - General Internal Medicine 05/22/[address] [phone] documented as of this encounter
--- OUTSIDE RECORDS SUMMARY | 2022-05-27 11:57 | XMS_ITS | Encounter Summary ---
:1945 Author Organization [facility] Address [address] [place] [address] Care Team Providers Name Role Phone Shayla Alford D.O. Primary Care Provider [phone] Encounter Details Date Type Department Care Team Description 02/13/2021 Hospital Encounter Department of Alexys Diabete s Mellitus Type 2 With Diabetic Chronic Kidney Disease Hyperglycemic (HCC); Laboratory Medicine Shayla queen, Chronic Kidney Disease (CKD), Stage 3b Glomerular Filtration Rate (GFR) 30 To 44 (HCC); in [place] Anemia In Chronic Kidney Disease [place] [address] [facility] [place] [phone] Social History Tobacco Use Types Packs/Day Years [...] you attend oriental orthodox or Never 2021 evangelical services? Do you [...] have completed or the highest Martin, MEd, CARBON GRINDER, CAYDEN) degree you have received? Sex [...] by mouth tabletIndications: daily. 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 Chronic Kidney Disease [...] eGFR-Black/Afri 37 (L) >=60 02/13/2021 [place] can [place] mL/min/BSA 10:43 AM CDT Comment: ----ADDITIONAL INFORMATION---- Estimated GFR calculated using the 2009 CKD_EPI creatinine equation. eGFR Non-Black/ 32 (L) >=60 mL/min/BSA 02/13/2021 10:43 AM CDT [place] Comment: ----ADDITIONAL INFORMATION---- Estimated GFR calculated using [...] Code Phon e Number [facility] [address] [place] [address] [facility] [place] [address] System in [place] [address] (ABNORMAL) Hemoglobin A1c (02/13/2021 [...] e Number [facility]- [address] [place] [address] [place] [address] System in [place] [address] documented in this encounter Visit [...] documented as of this encounter Care Teams Rolled Glass Crosscutter Relationship Specialty Start Date End Date Shayla Alford D.O. PCP - General Internal Medicine 05/22/[address] [place] [address] documented as of this encounter
--- OUTSIDE RECORDS SUMMARY | 2022-05-27 11:57 | XMS_ITS | Encounter Summary ---
:1945 Author Organization [facility] Address [address] [place] [address] Care Team Providers Name Role Phone Shayla Alford D.O. Primary Care Provider [phone] Reason for Referral Outpatient (Routine) - Closed Specialty Diagnoses / Procedures Referred By Contact Refer red To Contact Pulmonary Medicine Diagnoses Cough Unspecified Type Dyspnea Multifactorial Asthma Extrinsic Moderate (HCC) [facility] Tulio Mcguire [address] [place] [address] Referral ID Status Reason Start Date Expiration Date Visits V isits Requested Authorized [id number] Closed Specialty 03/02/2021 03/02/2022 1 1 Services Required Reason for Visit Reason Comments Post Hospital Follow-up CHF-exacerbation Appointment Request (Routine) - Closed Specialty Diagnoses / Procedures Referred By Contact Refer red To Contact Community Internal Medicine Referral ID Status Reason Start Date Expiration Date Visits Requ ested Visits Authorized [id number] Closed 02/27/2021 02/27/2022 1 1 Encounter Details Date Type Department Care Team Description 03/02/2021 Office Visit Department of Internal Rocío Di abetes Mellitus Type 2 Hyperglycemia (HCC) (Primary Dx); Medicine in [facility] Coleman Mcguire Cough; [place] [address] Dyspnea Multifactorial; [address] [place], [place] Asthma Extrinsic Moderate (H CC); [place] [address] Chronic Systolic (Congestive) Heart Fail ure (HCC); [phone] Hypothyroidism; Pancreatitis Chronic Recurrent (HCC); [phone] 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 Do you [...] have completed or the highest Martin, MEd, INSTRUMENT REPAIR TECHNICIAN, CAYDEN) degree you have received? [...] hospital follow-up. The patient presented to the [facility] [[place], [place]] on 02/25/2021 for acute on chronicHFpEF and acute asthma exacerbation. Due to his hospitalization being in [place] his notes are not in our system [...] male who was hospitalized from 02/25/2021-02/26/2021 at [facility] [[place], [place]] on 02/25/2021 for acute on chronic HFpEF and acute asthma exacerbation. Due to his hospitalization being in [place] his notes are not in our system [...] Hyperglycemia (HCC). PLAN: His provider at the [facility] was interested in starting him on a [...] behalf by Sarai Cason, a trained medical voucher clerk. The creation of this recordis based on the scribe remotely listening to the visit and the provider's statements to them. This do cument has been checked and approved by the attending provider. Time spent 52 minutes Electronically signed by: Shayla Alford D.O. 03/02/21 6:02 PM CDT documented in this encounter Plan of Treatment Scheduled Referrals Name Type Priority Associated Diagnoses Order S main campus medical center Pulmonary Medicine Outpatient Referral Routine Cough Expected: - General consult Dyspnea 03/06/2021 , (clinic) Multifactorial Expires: Asthma Extrinsic 03/02/2024 Moderate (HCC) documented as of this encounter Results (ABNORMAL) CBC with Differential, Blood (03/02/2021 12:59 PM CDT) [facility] Method Time Signature Hemoglobin 11.9 (L) 13.2 [...] Code Phon e Number [facility]- [address] [place] [address] [facility] [place] [address] System in [place] [address] DX Chest AP [...] as of this encounter Care Teams Chief Technician X Ray Relationship Specialty Start Date End Date Shayla Alford D.O. PCP - General Internal Medicine 05/22/[address] [phone] documented as of this encounter
--- OUTSIDE RECORDS SUMMARY | 2022-05-27 11:57 | XMS_ITS | Encounter Summary ---
:1945 Author Organization [facility] Address [address] [place] [address] Care Team Providers Name Role Phone Shayla Alford D.O. Primary Care Provider [phone] Encounter Details Date Type Department Care Team Description 02/15/2021 Clinical Communication Department of Internal Andrei Dejesus Medicine in [place], [place], [place].O Mauro [place] [address] [place] [phone] Social History Tobacco Use Types Packs/Day Years [...] you attend oriental orthodox or Never 2021 hindu services? Do you [...] have completed or the highest Martin, MEd, FILL TECHNICIAN, CAYDEN) degree you have received? Sex [...] documented as of this encounter Care Teams Corridor Redevelopment Manager Relationship Specialty Start Date End Date Shayla Alford D.O. PCP - General Internal Medicine 05/22/202199 [address] [address] documented as of this encounter
--- OUTSIDE RECORDS SUMMARY | 2022-05-27 11:57 | XMS_ITS | Encounter Summary ---
:1945 Author Organization [facility] Address [address] [place] [address] Care Team Providers Name Role Phone Shayla Alford D.O. Primary Care Provider [phone] Encounter Details Date Type Department Care Team Description 02/20/2021 Hospital Encounter Department of [place] Hypoth yroidism; Laboratory Medicine n, Gianna Mcguire Chronic Systolic (Congestive) Heart Fail ure (HCC) in [facility] [address] [address] [place] [phone] Social History Tobacco Use [...] have completed or the highest Martin, MEd, LEGAL TRANSCRIPTIONIST, CAYDEN) degree you have received? Sex Assigned [...] are i n the results section. CT MICROSOMAL AB Routine 02/20/2021 11:06 Results for this EA/TPO AM CDT procedure are i n the results section. documented in this encounter Results (ABNORMAL) Thyroid Function [place] (02/20/2021 11:09 AM CDT) P athologist Signature TSH, Sensitive 7.0 (H) 0.3 - 4.2 02/20/2021 [place] mIU/L 12:45 PM CDT Specimen Anatomical Collection Method Collection Time Receive d Time (Source) Location / / Volume Laterality Blood (Blood, 02/20/2021 11:09 02/20/2021 Venous) AM CDT 11:15 AM CDT Manuel Evans M.D. LAB BLOOD ADD-ON Performing Organization Address City/State/ZIP Code Phon e Number [facility]- [address] [place] [address] [place] [address] System in [place] [address] T4 (Thyroxine), Free [...] result does not ma [facility] clinical observations, repeat testing after patient refrains fr om the use of supplements for at least 12 hours. Specimen Anatomical Collection Method Collection Time Receive d Time (Source) Location / / Volume Laterality Blood (Blood, 02/20/2021 11:09 02/20/2021 Venous) AM CDT 11:15 AM CDT Shayla Alford D.O. LAB BLOOD ADD-ON Performing Organization Address City/State/ZIP Code Phon e Number [facility]- [address] [place] [address] [facility] [place] [address] System in [place] [address] (ABNORMAL) T3 (Triiodothyronine), Free (02/20/2021 11:09 AM CDT) athologist Signature T3 2.5 (L) 2.8 - 4.4 02/20/2021 [facility] (Triiodothyron pg/mL 9:56 PM CDT ine), Free, S Specimen Anatomical Collection Method Collection Time Receive d Time (Source) Location / / Volume Laterality Blood (Blood, 02/20/2021 11:09 02/20/2021 9:08 Venous) AM CDT PM CDT Shayla Alford D.O. LAB BLOOD ADD-ON Performing Organization Address City/State/ZIP Code Phon e Number [facility] [address] [place] [address] [facility] [place] [address] Laboratory Medicine and Pathology [address] [...] Address City/State/ZIP Code Phon e Number [facility] - [address] [place], [place] [address] [facility] [place] [address] [facility] [address] documented in this encounter Visit Diagnoses Diagnosis Hypothyroidism Chronic Systolic (Congestive) Heart Fail ure (HCC) documented in this encounter Additional Health Concerns Assessment Noted Time PHQ-9 Depression Total Score: 18 04/28/2018 11:27 AM C DT documented as of this encounter Care Teams Associate Professor Of Library Science Relationship Specialty Start Date End Date Shayla Alford D.O. PCP - General Internal Medicine 05/22/202199 [address] [place] [address] documented as of this encounter
--- OUTSIDE RECORDS SUMMARY | 2022-05-27 11:57 | XMS_ITS | Encounter Summary ---
:1945 Author Organization [facility] Address [address] [place] [address] Care Team Providers Name Role Phone Shayla Alford D.O. Primary Care Provider [phone] Reason for Visit Reason Comments Follow-up Encounter Details Date Type Department Care Team Description 02/27/2021 Clinical Communication Department of Renan Linjayne Cardiovascular Medicine Erica Barber R.N. in [facility] [phone] [address] [facility] (Work) [place] [address] Social History Tobacco Use Types Packs/Day [...] do you attend gnosticism or Never 2021 protestant services? Do you [...] have completed or the highest Martin, MEd, RN SURGICAL, CAYDEN) degree you have received? Sex Assigned [...] he was hospitalized over the weekend in [place] where his [facility] is located. He was hospitalized at [facility] and I am able to review the [...] hospitalization with his primary care provider in [place] on Friday03/02/2021. Lastly, patient reports that he [...] documented as of this encounter Care Teams Kennel Operator Relationship Specialty Start Date End Date Shayla Alford D.O. PCP - General Internal Medicine 05/22/[address] [phone] documented as of this encounter
--- OUTSIDE RECORDS SUMMARY | 2022-05-27 11:57 | XMS_ITS | Encounter Summary ---
:1945 Author Organization [facility] Address [address] [place] [address] Care Team Providers Name Role Phone Shayla Alford D.O. Primary Care Provider Reason for Referral Outpatient (Routine) - Closed Specialty Diagnoses / Procedures Referred By Contact Refer red To Contact Community Internal Diagnoses Effusion [facility]ural [facility] Tulio Mcguire [address] [place] [phone] Referral ID Status Reason Start Date Expiration Date Visits Requ ested Visits Authorized [id number] Closed 02/13/2021 02/13/2022 12 12 Outpatient (Routine) - Closed Specialty Diagnoses / Procedures Referred By Contact Refer anna To Contact Nephrology and Diagnoses Diabetes Mellitus Type 2 With Diabetic Chronic Kidney Disease Hyperglycemic (HCC) Chronic Kidney Disease (CKD), Stage 3b Glomerular Filtration Rate (GFR) 30 To 44 (HCC) Anemia In Chronic Kidney Disease [facility] Hypertension Tulio Mcguire [address] [place] [phone] Referral ID Status Reason Start Date Expiration Date Visits Requ ested Visits Authorized [id number] Closed 02/13/2021 02/13/2022 1 1 Reason for Visit Reason Comments Fatigue Leg Swelling Appointment Request (Routine) - Closed Specialty Diagnoses / Procedures Referred By Contact Refer red To Contact Community Internal Medicine Referral ID Status Reason Start Date Expiration Date Visits Requ ested Visits Authorized [id number] Closed 01/30/2021 01/30/2022 1 1 Encounter Details Date Type Department Care Team Description 02/13/2021 Office Visit Department of Rocío Hyperlipide peter (Primary Dx); Internal Medicine Shayla larry D. O. Stroke (HCC); [place], [place] [address] Hypertension Essential Primary; [address] [place], [place] Diabetes Mellitus Type 2 Wit h Diabetic Chronic Kidney Disease Hyperglycemic ([facility]); [place] [address] Chronic Kidney Disease (CKD), Stage 3b G lomerular Filtration Rate (GFR) 30 To 44 ([facility]); [phone] Anemia In Chronic Kidney Dis ease; Effusion Pleural; [phone] Hypothyroidism; (Fax) Asthma Extrinsi c Moderate ([facility]); Chronic Systoli c (Congestive) Heart Failure ([facility]) Social History Tobacco Use Types Packs/Day Years [...] do you attend latter-day or Never 2021 pentecostal services? Do you [...] have completed or the highest Martin, MEd, MOBILE LOUNGE DRIVER OR OPERATOR, CAYDEN) degree you have received? Sex [...] the patient has [facility] the [facility] with [facility]. Patient's hemoglobin A1c has dropped to 7.9. He will continue taking Lantus 30 units at bedtime, NovoLog 11 units subQ t.i.d. he does have a Win the Planety[employer] Sofya system which has allowed better control of blood glucose especially, with the patient's variations in his blood sugar readings. blood pressure has been within good control, 131/80. Currently, on Imdur 60 mg daily, and jqcwebofyh31 mg daily. As well as, hydralazine 25 [...] The patient, received as additional diuresis through [facility]. Jonnathan Costa has, history of chronic pancreatitis. [...] Currently, on Imdur 60 mg daily, and muwdugtzqe09 mg daily. As well as, hydralazine 25 [...] the patient has been following at the [facility] with endocrinology. Patient's hemoglobin A1c has dropped to 7.9. He will continue taking Lantus 30 units at bedtime, NovoLog 11 units subQ t.i.d. he does have a [employer] Sofya system which has allowed better control [...] The patient, received as additional diuresis through [facility]. Other orders - Hemoglobin A1c; Future; Expected [...] Name Type Priority Associated Diagnoses [facility] Ne[facility] and Outpatient Routine Diabetes Mellitus Expected : Hypertension - Referral Type 2 With Diabetic 02/14, Chronic kidney Chronic Kidney Expires: disease consult Disease 02/14/2024 (clinic) Hyperglycemic (H CC) Chronic Kidney Disease (CKD), Stage 3b Glomerular Filtration Rate (GFR) 30 To 44 ( HCC) Anemia In Chronic Kidney Disease Community Internal Outpatient Routine every 3 m [facility] for Medicine office Referral [facility] starting 02/13/2021 unti l [...] eGFR-Black/Afri 37 (L) >=60 02/13/2021 [place] can [place] mL/min/BSA 10:43 AM CDT Comment: ----ADDITIONAL INFORMATION---- Estimated GFR calculated using the 2009 CKD_EPI creatinine equation. eGFR Non-Black/ 32 (L) >=60 mL/min/BSA 02/13/2021 10:43 AM CDT [place] Comment: ----ADDITIONAL INFORMATION---- Estimated GFR calculated using [...] Organization Address City/State/ZIP Code Phon e Number [facility]- [address] [place] [address] [place] [address] System in [place] [address] (ABNORMAL) Hemoglobin A1c (02/13/2021 [...] Organization Address City/State/ZIP Code Phon e Number [facility]- [address] [place] [address] [facility] [place] [address] System in [place] [address] DX Chest AP [...] documented as of this encounter Care Teams Prover Relationship Specialty Start Date End Date Shayla Alford D.O. PCP - General Internal Medicine 05/22/[address] [phone] documented as of this encounter
--- OUTSIDE RECORDS SUMMARY | 2022-05-27 11:57 | XMS_ITS | Encounter Summary ---
:1945 Author Organization [facility] Address [address] [place] [address] Care Team Providers Name Role Phone Shayla Alford D.O. Primary Care Provider [phone] Encounter Details Date Type Department Care Team Description 02/21/2021 Clinical Communication [facility] Pato Barber Transplantation and [address] [place] [address] Clinical [facility] in [place], [place] [address] [place] [address] [place] [address] (Work) [phone] Social History Tobacco Use Types Packs/Day Years [...] do you attend uatsdin or Never 2021 jewish services? Do you [...] completed or the highest Martin, MEd, AUTOMOTIVE ASSEMBLER, CAYDEN) degree you have received? Sex Assigned at Date Recorded Male 05/21/2018 2:34 PM CDT documented as of this encounter Plan of Treatment Not on filedocumented as of this encounter Visit Diagnoses Not on filedocumented in this encounter Additional Health Concerns Assessment Noted Time PHQ-9 Depression Total Score: 18 04/28/2018 11:27 AM C DT documented as of this encounter Care Teams Physical Therapy Coordinator Relationship Specialty Start Date End Date Shayla Alford D.O. PCP - General Internal Medicine 05/22/20 [address] [place] [phone] documented as of this encounter
--- OUTSIDE RECORDS SUMMARY | 2022-05-27 11:57 | XMS_ITS | Encounter Summary ---
:1945 Author Organization [facility] Address [address] [place] [address] Care Team Providers Name Role Phone Shayla Alford D.O. Primary Care Provider [phone] Reason for Visit Reason Comments Cough Encounter Details Date Type Department Care Team Description 03/01/2021 Nurse Triage Department of Internal Kayli Cohn , Cough Medicine in [facility] [address] [facility] [address] [place] [phone] Social History Tobacco Use Types Packs/Day Years [...] do you attend sabianist or Never 2021 yazdanism services? Do you [...] completed or the highest Martin, MEd, RECEIVING ROOM CLERK, CAYDEN) degree you have received? Sex [...] or 4 hours. Call your doctor (or ACCOUNTING PRACTICE MANAGER/PA) now or as soon as the office [...] need to be seen. Your doctor (or ACCOUNTING PRACTICE MANAGER/PA) will want to talk with you to [...] F (37.8 C) AND [2] bedridden (e.g., skilled nursing patient, CVA, chronic illness, recovering from surgery) Protocols used: COUGH - ACUTE [id number] documented in this encounter Plan of Treatment Not on filedocumented as of this encounter Visit Diagnoses Not on filedocumented in this encounter Additional Health Concerns Assessment Noted Time PHQ-9 Depression Total Score: 18 04/28/2018 11:27 AM C DT documented as of this encounter Care Teams Food Preparer Relationship Specialty Start Date End Date Shayla Alford D.O. PCP - General Internal Medicine 05/22/20 [address] [place] [phone] documented as of this encounter
--- OUTSIDE RECORDS SUMMARY | 2022-05-27 11:57 | XMS_ITS | Encounter Summary ---
:1945 Author Organization [facility] Address [address] [place] [address] Care Team Providers Name Role Phone Shayla Alford D.O. Primary Care Provider [phone] Encounter Details Date Type Department Care Team Description 02/13/2021 Hospital Encounter Department of Charmaine Alford Pleural Radiology in [place], D. OMauro [place] [address] [place] [phone] Social History Tobacco Use [...] do you attend mosque or Never 2021 faith services? Do you [...] completed or the highest Martin, MEd, PRESCHOOL ADVISER, CAYDEN) degree you have received? Sex Assigned [...] by mouth tabletIndications: daily. 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 PCP - General Internal Medicine 05/22/[address] [phone] documented as of this encounter
--- OUTSIDE RECORDS SUMMARY | 2022-05-27 11:57 | XMS_ITS | Encounter Summary ---
:[address] [facility] Address [address] [place] [address] Care Team Providers Name Role Phone Shayla Alford D.O. Primary Care Provider [phone] Encounter Details Date Type Department Care Team Description 02/06/2021 Hospital Encounter Department of Augustin Wong O n Chronic Laboratory Medicine Pato Duque Diastolic in [place] [address] (Congestive) Heart [place], [place] Failure (HCC) [address] [facility] [address] [address] [place], [place] [phone] [address] (Work) [phone] Social History Tobacco Use Types Packs/Day Years [...] do you attend catholic or Never 2021 voodoo services? Do you [...] completed or the highest Martin, MEd, FUR IRONER, CAYDEN) degree you have received? Sex Assigned [...] by mouth tabletIndications: daily. 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 eGFR Non-Black/ 31 (L) >=60 mL/min/BSA 02/06/2021 2:00 PM CDT [place] Comment: ----ADDITIONAL INFORMATION---- Estimated GFR calculated using [...] Phon e Number [facility]- [address] [place] [address] [place] [address] System in [place] [address] documented in this encounter Visit Diagnoses Diagnosis Acute On Chronic Diastolic (Congestive) Heart Failure (HCC) documented in this encounter Additional Health Concerns Assessment Noted Time PHQ-9 Depression Total Score: 18 04/28/2018 11:27 AM C DT documented as of this encounter Care Teams Fitness Sales Consultant Relationship Specialty Start Date End Date Shayla Alford D.O. PCP - General Internal Medicine 05/22/202199 [place] [phone] documented as of this encounter
--- OUTSIDE RECORDS SUMMARY | 2022-05-27 11:57 | XMS_ITS | Encounter Summary ---
:1945 Author Organization [facility] Address [address] [place] [address] Care Team Providers Name Role Phone Shayla Alford D.O. Primary Care Provider [phone] Reason for Visit Reason Comments Post Hospital Follow-up Completed Encounter Details Date Type Department Care Team Description 02/27/2021 Clinical Communication [facility], J, R.N. Follow-up [facility], in [phone] ([facility]) [place], [place] (Work) [address] [place] [address] Social History Tobacco Use Types [...] do you attend denominational or Never 2021 mormonism services? Do you [...] completed or the highest Martin, MEd, HEAD CHOPPER, CAYDEN) degree you have received? Sex Assigned [...] documented as of this encounter Care Teams Digital Press Operator Relationship Specialty Start Date End Date Shayla Alford D.O. PCP - General Internal Medicine 05/22/20 [address], [place] [address] documented as of this encounter
--- OUTSIDE RECORDS SUMMARY | 2022-05-27 11:57 | XMS_ITS | Encounter Summary ---
:1945 Author Organization [facility] Address [address] [place] [address] Care Team Providers Name Role Phone Shayla Alford D.O. Primary Care Provider [phone] Reason for Visit Reason Comments Follow-up Encounter Details Date Type Department Care Team Description 03/02/2021 Patient Outreach Department of Erica Lin Follow -up Cardiovascular Medicine in [place], [place] [phone] [address] [facility] (Work) [place] [address] Social History Tobacco Use Types Packs/Day [...] do you attend yazidi or Never 2021 hoahaoism services? Do you [...] have completed or the highest Martin, MEd, NURSE MANAGER, CAYDEN) degree you have received? Sex Assigned at Date Recorded Male 05/21/2018 2:34 PM CDT documented as of this encounter Progress Notes Erica Lin, R.N. - 03/02/2021 1:16 PM CDT SUBJECTIVE CHIEF COMPLAINT / REASON FOR CALL Follow-up Information Discussed Labs drawn yesterday, 03/01/2021 revealed NT proBNP 4755, sodium 137, potassium 3.8, creatinine 1.56, BUN 42. Patient was seen at the [facility] by for post hospital follow-up(patient hospitalized in [place] Over[place] during the [facility] weekend - for acute heart failure exacerbation [...] documented as of this encounter Care Teams Block Piler Relationship Specialty Start Date End Date Shayla Alford D.O. PCP - General Internal Medicine 05/22/[address] [address] documented as of this encounter
--- OUTSIDE RECORDS SUMMARY | 2022-05-27 11:57 | XMS_ITS | Encounter Summary ---
:1945 Author Organization [facility] Address [address] [place] [address] Care Team Providers Name Role Phone Shayla Alford D.O. Primary Care Provider [phone] Reason for Referral Outpatient (Routine) - Closed Specialty Diagnoses / Procedures Referred By Contact Refer red To Contact Diagnoses Chronic Systolic (Congestive) Heart Failure (HCC) Beat Premature Ventricular Manuel Evans M.D. [facility] Procedures ECG Heart Rhythm Monitor (Holter) [address] [place] [address] Referral ID Status Reason Start Date Expiration Date Visits Requ ested Visits Authorized [id number] Closed 02/01/2021 02/01/2022 1 1 Reason for Visit Outpatient (Routine) - Closed Specialty Diagnoses / Procedures Referred By Contact Refer red To Contact Diagnoses Chronic Systolic (Congestive) Heart Failure (HCC) Beat Premature Ventricular Manuel Evans M.D. [facility] Procedures ECG Heart Rhythm Monitor (Holter) [address] [place] [address] Referral ID Status Reason Start Date Expiration Date Visits Requ ested Visits Authorized [id number] Closed 02/01/2021 02/01/2022 1 1 Encounter Details Date Type Department Care Team Description 02/21/2021 Hospital Encounter Department of Cristina, Chronic Systolic (Congestive) Heart Failure (HCC); Cardiovascular Manuel Barber M.D. Beat Premature Ventricular Diseases in [place], [facility] [address] [place], [place] [address] [address] [place] [phone] [address] (Work) [phone] Social History Tobacco Use Types Packs/Day Years [...] do you attend protestant or Never 2021 mu-ism services? Do you [...] have completed or the highest Martin, MEd, BELT BUILDER, CAYDEN) degree you have received? Sex [...] bedtime. injectionIndications: Diabetes Mellitus Type 2 Hyperglycemia ([facility]) isosorbide mononitrate Take 1 tablet (60 mg 0 11/201902/22/2021 (IMDUR) 60 mg 24 hr total) by mouth tabletIndications: daily. 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 Ventricular documented in this encounter Results HOLTER MONITOR - IN CLINIC PLATE TAKE OUT WORKER (02/21/2021 8:20 AM CDT) [facility] Method Time Signature Min Heart Rate 52 bpm HOLTER SENTINEL AF Count 0 count HOLTER SENTINEL SVE Max Per [id number] HOLTER Hour Time SENTINEL Tachycardia 0 count HOLTER Runs SENTINEL SVE Total 80 count HOLTER Beats SENTINEL Mean Heart 68 bpm HOLTER Rate SENTINEL SVT Runs 0 count HOLTER SENTINEL VT Runs 0 count HOLTER SENTINEL Bradycardia 0 count HOLTER Runs SENTINEL Min Heart Rate [id number] HOLTER Time SENTINEL Max Heart Rate [id number] HOLTER Time SENTINEL Max Heart Rate 93 bpm HOLTER SENTINEL SVE Max Per 11 count HOLTER Hour SENTINEL SVE Percent 0 percent HOLTER Beats SENTINEL Recording Date HOLTER SENTINEL VE Max Per [id number] HOLTER Hour Time SENTINEL Holter Pauses 0 [...] as of this encounter Care Teams Coal Screener Relationship Specialty Start Date End Date Shayla Alford D.O. PCP - General Internal Medicine 05/22/202199 [address] [address] documented as of this encounter
--- OUTSIDE RECORDS SUMMARY | 2022-05-27 11:57 | XMS_ITS | Encounter Summary ---
:1945 Author Organization [facility] Address [address] [place] [address] Care Team Providers Name Role Phone Shayla Alford D.O. Primary Care Provider [phone] Reason for Visit Outpatient (Routine) - Closed Specialty Diagnoses / Procedures Referred By Contact Refer red To Contact Cardiovascular Disease Manuel Evans [place] M.D. [address] [place] [address] Referral ID Status Reason Start Date Expiration Date Visits Requ ested Visits Authorized [id number] Closed 02/01/2021 02/01/2022 1 1 Encounter Details Date Type Department Care Team Description 02/22/2021 Office Visit Department of Manuel Evans Chronic Sy stolic (Congestive) Heart Failure (HCC) (Primary Dx); Cardiovascular Medicine Pato Barber Beat Premature Ventricular; in [facility] continuous process tanner rotary drum 200 [facility] Chronic Kidney Disease (CKD), Stage 3b G lomerular Filtration Rate (GFR) 30 To 44 (HCC); [address] [place], [place] Diabetes Mellitus Type 2 Wit h Diabetic Neuropathy (HCC); [place] [address] Diabetes Mellitus Type 2 Hyperglycemia ( HCC); [id number] Hypertension Essential Prima ry; Hyperlipidemia; [phone] Hypothyroidism (Fax) Social History Tobacco Use Types [...] do you attend islam or Never 2021 sabianist services? Do you [...] have completed or the highest Martin, MEd, AVIATION SAFETY INSPECTOR, CAYDEN) degree you have received? Sex [...] as of this encounter Care Teams Lead Rider Relationship Specialty Start Date End Date Shayla Alford D.O. PCP - General Internal Medicine 05/22/[address] [address] documented as of this encounter
--- OUTSIDE RECORDS SUMMARY | 2022-05-27 11:57 | XMS_ITS | Encounter Summary ---
:1945 Author Organization [facility] Address [address] [place] [address] Care Team Providers Name Role Phone Shayla Alford D.O. Primary Care Provider [phone] Reason for Visit Reason Comments Follow-up Encounter Details Date Type Department Care Team Description 02/23/2021 Clinical Communication Department of Renan Linjayne Cardiovascular Medicine Erica Barber R.N. in [facility] [phone] [address] [facility] (Work) [place] [address] Social History Tobacco Use Types Packs/Day [...] do you attend cheondoism or Never 2021 yarsani services? Do you [...] have completed or the highest Martin, MEd, ECMO SPECIALIST, CAYDEN) degree you have received? Sex [...] up lab follow up for 03/01/2021 at [facility]. Mr. Costa , and his , Diallo-reviewed [...] PLAN Labs scheduled for 9:00 a.m. at [facility] on 03/01/2021. Patient reports he will picker the prescriptions this morning from his local [...] failure. Biotin has been identified by the [facility] as a potential interfering substance. ??Higher concentr ations of biotin may be found in multivitamins, hair/nail supple ments, and workout supplements. ??If the result does not ma [facility] clinical observations, repeat testing after patient refrains fr om the use of supplements for at least 12 hours. Specimen Anatomical Collection Method Collection Time Receive d Time (Source) Location / / Volume Laterality Blood (Blood, 03/01/2021 12:20 03/01/2021 Venous) PM CDT 12:25 PM CDT Manuel Evans M.D. LAB BLOOD ADD-ON Performing Organization Address City/State/ZIP Code Phon e Number [facility]- [address] [place] [address] [place] [address] System in [place] [address] Sodium (03/01/2021 12:20 [...] Phon e Number [facility]- [address] [facility] [place] [address] [place] [address] System in [place] [address] Potassium (03/01/2021 12:20 [...] Phon e Number [facility]- [address] [facility] [place] [address] [facility] [place] [address] System in [place] [address] (ABNORMAL) Creatinine with Estimated GFR (03/01/2021 12:20 PM CDT) Analysis Performed At Patho logist Time Signature Creatinine 1.56 (H) 0.74 - 03/01/2021 OW[place] 1.35 mg/dL 12:59 PM CDT eGFR-Black/Afri 49 (L) >=60 03/01/2021 [place] can [place] mL/min/BSA 12:59 PM CDT Comment: ----ADDITIONAL INFORMATION---- Estimated GFR calculated using the 2009 CKD_EPI creatinine equation. eGFR Non-Black/ 42 (L) >=60 mL/min/BSA 03/01/2021 12:59 PM CDT [place] Comment: ----ADDITIONAL INFORMATION---- Estimated GFR calculated using the 2009 CKD_EPI creatinine equation. Specimen Anatomical Collection Method Collection Time Receive d Time (Source) Location / / Volume Laterality Blood (Blood, 03/01/2021 12:20 03/01/2021 Venous) PM CDT 12:25 PM CDT Manuel Evans M.D. LAB BLOOD ADD-ON Performing Organization Address City/State/ZIP Code Phon e Number [facility]- [address] [facility] [place] [address] [place] [address] System in [place] [address] (ABNORMAL) BUN (Blood Urea [...] M.D. LAB BLOOD ADD-ON Performing Organization Address City/[facility]/ZIP Code Phon e Number [facility]- [address] [place] [address] [facility] [place] [address] System in [place] [address] documented in this encounter Visit Diagnoses Diagnosis Chronic Systolic (Congestive) Heart Fail ure (HCC) - Primary documented in this encounter Additional Health Concerns Assessment Noted Time PHQ-9 Depression Total Score: 18 04/28/2018 11:27 AM C DT documented as of this encounter Care Teams Commercial Cleaner Relationship Specialty Start Date End Date Shayla Alford D.O. PCP - General Internal Medicine 05/22/[address] [place] [address] documented as of this encounter
--- OUTSIDE RECORDS SUMMARY | 2022-05-27 11:57 | XMS_ITS | Encounter Summary ---
:1945 Author Organization [facility] Address [address] [place] [address] Care Team Providers Name Role Phone Shayla Alford D.O. Primary Care Provider [phone] Encounter Details Date Type Department Care Team Description 02/23/2021 Clinical Communication Department of Internal Andrei Dejesus Medicine in [place], [place], [place] [address] [place] [phone] Social History Tobacco Use Types Packs/Day Years [...] have completed or the highest Martin, MEd, BRAND LEADER, CAYDEN) degree you have received? Sex Assigned [...] medication. Patient stated that his provider in [place] changed his medications. Please call patient back [...] as of this encounter Care Teams Web Producer Relationship Specialty Start Date End Date Shayla Alford D.O. PCP - General Internal Medicine 05/22/[address] [address] documented as of this encounter
--- OUTSIDE RECORDS SUMMARY | 2022-05-27 11:57 | XMS_ITS | Encounter Summary ---
:1945 Author Organization [facility] Address [address] [place] [address] Care Team Providers Name Role Phone Shayla Alford D.O. Primary Care Provider [phone] Encounter Details Date Type Department Care Team Description 02/06/2021 Clinical Communication Department of [facility] Kaushik Wong Medicine, [place] Pato [facility], [address] [address] [place], [place] [phone] [address] (Work) [phone] Social History Tobacco Use Types Packs/Day Years [...] do you attend adventism or Never 2021 religion services? Do you [...] have completed or the highest Martin, MEd, ACTIVITY MANAGER, CAYDEN) degree you have received? Sex [...] documented as of this encounter Care Teams Light Armored Reconnaissance Officer Relationship Specialty Start Date End Date Shayla Alford D.O. PCP - General Internal Medicine 05/22/[address] [address] documented as of this encounter
--- OUTSIDE RECORDS SUMMARY | 2022-05-27 11:57 | XMS_ITS | Encounter Summary ---
:1945 Author Organization [facility] Address [address] [place] [address] Care Team Providers Name Role Phone Shayla Alford D.O. Primary Care Provider [phone] Encounter Details Date Type Department Care Team Description 03/01/2021 Hospital Encounter Department of Manuel Evans Systolic Laboratory Medicine Pato Barber (Congestive) Heart in [place], [facility] [address] [facility] Failure (HCC) [place], [place] [address] [address] [place], [place] [phone] [address] (Work) [phone] Social History Tobacco Use Types Packs/Day Years [...] do you attend congregation or Never 2021 jainism services? Do you [...] have completed or the highest Martin, MEd, GASTROENTEROLOGIST, CAYDEN) degree you have received? Sex Assigned [...] ??If the result does not ma [facility] clinical observations, repeat testing after patient [...] e Number [facility]- [address] [place] [address] [facility] [place] [address] System in [place] [address] Sodium (03/01/2021 12:20 PM [...] e Number [facility]- [address] [place] [address] [facility] [place] [address] System in [place] [address] Potassium (03/01/2021 12:20 PM [...] e Number [facility]- [address] [place] [address] [facility] [place] [address] System in [place] [address] (ABNORMAL) Creatinine with Estimated GFR (03/01/2021 12:20 PM CDT) Analysis Performed At Patho logist Time Signature Creatinine 1.56 (H) 0.74 - 03/01/2021 OW[place] 1.35 mg/dL 12:59 PM CDT eGFR-Black/Afri 49 (L) >=60 03/01/2021 [facility] can [place] Citizen mL/min/BSA 12:59 PM CDT Comment: ----ADDITIONAL INFORMATION---- Estimated GFR calculated using the 2009 CKD_EPI creatinine equation. eGFR Non-Black/ 42 (L) >=60 mL/min/BSA 03/01/2021 12:59 PM CDT OW[facility] [place] Citizen Comment: ----ADDITIONAL INFORMATION---- Estimated GFR calculated using the 2009 CKD_EPI creatinine equation. Specimen Anatomical Collection Method Collection Time Receive d Time (Source) Location / / Volume Laterality Blood (Blood, 03/01/2021 12:20 03/01/2021 Venous) PM CDT 12:25 PM CDT Manuel Evans M.D. LAB BLOOD ADD-ON Performing Organization Address City/State/ZIP Code Phon e Number [facility]- [address] [place] [address] [place] [address] System in [place] [address] (ABNORMAL) BUN (Blood Urea [...] e Number [facility]- [address] [place] [address] [place] [address] System in [place] [address] [facility] documented in this encounter Visit Diagnoses Diagnosis Chronic Systolic (Congestive) Heart Fail ure (HCC) documented in this encounter Additional Health Concerns Assessment Noted Time PHQ-9 Depression Total Score: 18 04/28/2018 11:27 AM C DT documented as of this encounter Care Teams Welder Setter Electron Beam Machine Relationship Specialty Start Date End Date Shayla Alford D.O. PCP - General Internal Medicine 05/22/[address] [phone] documented as of this encounter
--- OUTSIDE RECORDS SUMMARY | 2022-05-27 11:57 | XMS_ITS | Encounter Summary ---
:1945 Author Organization [facility] Address [address] [place] [address] Care Team Providers Name Role Phone Shayla Alford D.O. Primary Care Provider [phone] Encounter Details Date Type Department Care Team Description 03/02/2021 Hospital Encounter Department of Alexys Diabete s Mellitus Type 2 Hyperglycemia (HCC); Radiology in , [facility], Cough; [place], [place] D.O. 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 Do you [...] completed or the highest Martin, MEd, SENIOR PROCESS CONTROL TECH, CAYDEN) degree you have received? Sex [...] as of this encounter Care Teams Graphic Specialist Relationship Specialty Start Date End Date Shayla Alford D.O. PCP - General Internal Medicine 05/22/[address] [phone] documented as of this encounter
--- OUTSIDE RECORDS SUMMARY | 2022-05-27 11:57 | XMS_ITS | Encounter Summary ---
:1945 Author Organization [facility] Address [address] [place] [address] Care Team Providers Name Role Phone Shayla Alford D.OMauro Primary Care Provider [phone] Encounter Details Date Type Department Care Team Description 03/02/2021 Hospital Encounter Department of Alexys Cough; Laboratory Medicine Shayla queen, Dyspnea Multifactorial in [place], D.O. [place] [address] [place] [phone] Social History Tobacco Use Types Packs/Day [...] do you attend jewish or Never 2021 lutheran services? Do you [...] have completed or the highest Martin, MEd, HIGH RAW SUGAR BOILER, CAYDEN) degree you have received? Sex Assigned [...] [facility]) azithromycin (ZITHROMAX) Take 1 tablet (500 5 [...] with Differential, Blood (03/02/2021 12:59 PM CDT) [facility] Method Time Signature Hemoglobin 11.9 (L) [...] Code Phon e Number [facility]- [address] [place] [address] [place] [address] System in [place] [address] [place] [address] documented in this encounter Visit Diagnoses Diagnosis Cough Unspecified Type Dyspnea Multifactorial documented in this encounter Additional Health Concerns Assessment Noted Time PHQ-9 Depression Total Score: 18 04/28/2018 11:27 AM C DT documented as of this encounter Care Teams Quarter Trimmer Relationship Specialty Start Date End Date Shayla Alford D.O. PCP - General Internal Medicine 05/22/[address] [address] documented as of this encounter
--- OUTSIDE RECORDS SUMMARY | 2022-05-27 11:58 | XMS_ITS | Encounter Summary ---
:1945 Author Organization [facility] Address [address] [place] [address] Care Team Providers Name Role Phone Shayla Alford D.O. Primary Care Provider [phone] Reason for Referral Outpatient (Routine) - Closed Specialty Diagnoses / Procedures Referred By Contact Refer red To Contact [facility] Xu Prescott M.D. [place] [address] [place] [address] Referral ID Status Reason Start Date Expiration Date Visits Requ ested Visits Authorized [id number] Closed 12/20/2020 12/20/2021 1 1 Reason for Visit Reason Comments Follow-up er follow up from heart fail ure on 12/18/2020 Appointment Request (Routine) - Closed Specialty Diagnoses / Procedures Referred By Contact Madelaine castillo To Contact Family Medicine Referral ID Status Reason Start Date Expiration Date Visits Requ ested Visits Authorized [id number] Closed 12/18/2020 12/18/2021 1 1 Encounter Details Date Type Department Care Team Description 12/20/2020 Office Visit Department of Xu Prescott, Sarath On [facility] hilary Systolic (Congestive) Heart Failure (HCC) (Primary Dx); Internal Medicine in [place] Atherosclerotic Heart Disease [place] 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 Do you [...] have completed or the highest Martin, MEd, BACK JOINER, CAYDEN) degree you have received? Sex Assigned [...] CLINIC PROGRESS NOTE SUBJECTIVE LOCATION OF EXAM: [facility] CHIEF COMPLAINT/REASON FOR VISIT Chief Complaint [...] Heart Failure (HCC) 2. 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 Chronic Kidney Disease (CKD), Stage 3 Unspecified (HCC) Improved after increase in diuretic. Will have him continue on torsemide 60 mg daily for another 3 days. Then will recheck his BMP. I will see him back next week to reassess his volume status and decide if more rocket scientist increase in his diuretic is needed. - [...] Name Type Priority Associated Diagnoses Order S [facility] Internal Outpatient Referral Routine Ex pected: [...] eGFR-Black/Afri 41 (L) >=60 12/22/2020 [place] can [place] mL/min/BSA 2:00 PM CDT Comment: ----ADDITIONAL INFORMATION---- Estimated GFR calculated using the 2009 CKD_EPI creatinine equation. 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 PCP - General Internal Medicine 05/22/[address] [place] [address] documented as of this encounter
--- OUTSIDE RECORDS SUMMARY | 2022-05-27 11:58 | XMS_ITS | Encounter Summary ---
:1945 Author Organization [facility] Address [address] [place] [address] Care Team Providers Name Role Phone Shayla Alford D.O. Primary Care Provider Reason for Referral Outpatient (Routine) - Closed Specialty Diagnoses / Procedures Referred By Contact Refer red To Contact Diagnoses Chronic Systolic (Congestive) Heart Failure (HCC) Beat Premature Ventricular Manuel Evans M.D. [facility] Procedures ECG Heart Rhythm Monitor (Holter) [address] [place] [address] Referral ID Status Reason Start Date Expiration Date Visits Requ ested Visits Authorized [id number] Closed 02/01/2021 02/01/2022 1 1 Outpatient (Routine) - Closed Specialty Diagnoses / Procedures Referred By Contact Refer anna To Contact Cardiovascular Disease Manuel Evans [facility] Felicita Whyte [address] [place] [address] Referral ID Status Reason Start Date Expiration Date Visits Requ ested Visits Authorized [id number] Closed 02/01/2021 02/01/2022 1 1 Reason for Visit Reason Comments Questioning amiodarone dose/wants 3-month appt Encounter Details Date Type Department Care Team Description 01/31/2021 Clinical Department of Shona Evans Cardiovascular Manuel Barber amiodarone Medicine in M.D. dose/wants 3-month [place], [place] [address] appt [address] [place] [address] [phone] Social History Tobacco Use Types Packs/Day Years [...] do you attend mosque or Never 2021 sikh services? Do you [...] completed or the highest Martin, MEd, CARBON CUTTER, CAYDEN) degree you have received? Sex [...] expects communication via portal: No Phone number: [phone] Request topic and what needs to be [...] encounter Results HOLTER MONITOR - IN CLINIC PLANT CARE WORKER (02/21/2021 8:20 AM CDT) [facility] gist Method Time Signature Min Heart Rate 52 bpm HOLTER SENTINEL AF Count 0 count HOLTER SENTINEL SVE Max Per [id number] HOLTER Hour Time SENTINEL Tachycardia 0 count HOLTER Runs SENTINEL SVE Total 80 count HOLTER Beats SENTINEL Mean Heart 68 bpm HOLTER Rate SENTINEL SVT Runs 0 count HOLTER SENTINEL VT Runs 0 count HOLTER SENTINEL Bradycardia 0 count HOLTER Runs SENTINEL Min Heart Rate [id number] HOLTER Time SENTINEL Max Heart Rate [id number] HOLTER Time SENTINEL Max Heart Rate 93 bpm HOLTER SENTINEL SVE Max Per 11 count HOLTER Hour SENTINEL SVE Percent 0 percent HOLTER Beats SENTINEL Recording Date [id number] HOLTER SENTINEL VE Max Per [id number] HOLTER Hour Time SENTINEL Holter Pauses 0 [...] SENTINEL HOLTER SENTINEL NA (ABNORMAL) Thyroid Function [place] (02/20/2021 11:09 AM CDT) P athologist Signature TSH, Sensitive 7.0 (H) 0.3 - 4.2 02/20/2021 [place] mIU/L 12:45 PM CDT Specimen Anatomical Collection Method Collection Time Receive d Time (Source) Location / / Volume Laterality Blood (Blood, 02/20/2021 11:09 02/20/2021 Venous) AM CDT 11:15 AM CDT Manuel Evans M.D. LAB BLOOD ADD-ON Performing Organization Address City/State/ZIP Code Phon e Number [facility]- [address] [place] [address] [place] [address] System in [place] [address] documented in this encounter Visit Diagnoses Diagnosis Chronic Systolic (Congestive) Heart Fail ure (HCC) - Primary Beat Premature Ventricular Hypothyroidism documented in this encounter Additional Health Concerns Assessment Noted Time PHQ-9 Depression Total Score: 18 04/28/2018 11:27 AM C DT documented as of this encounter Care Teams Cuffer Relationship Specialty Start Date End Date Shayla Alford D.O. PCP - General Internal Medicine 05/22/[address] [place] [address] documented as of this encounter
--- OUTSIDE RECORDS SUMMARY | 2022-05-27 11:58 | XMS_ITS | Encounter Summary ---
:1945 Author Organization [facility] Address [address] [place] [address] Care Team Providers Name Role Phone Shayla Alford D.O. Primary Care Provider [phone] Encounter Details Date Type Department Care Team Description 02/01/2021 Clinical Communication Department of Internal Neto Wong, Medicine in [place] [address] [place] [phone] Social History Tobacco Use Types Packs/Day [...] do you attend bahai or Never 2021 adventism services? Do you [...] have completed or the highest Martin, MEd, PRODUCTION CONTROL ANALYST, CAYDEN) degree you have received? Sex Assigned at Date Recorded Male 05/21/2018 2:34 PM CDT documented as of this encounter Miscellaneous Notes Telephone Encounter - Yannick Raza L.P.N. - 02/01/2021 11:15 AM CDT Name of person contacted: Patient Relationship to patient: Not applicable Call back number: As listed in his chart Contract Technician: Not applicable Information provided: Aware of lab results per DR. Wong civil engineering draftsperson/patient received and understood education/information provided: Yes civil engineering draftsperson/patient agreed to the Plan of [...] as of this encounter Care Teams Optical Effects Line Up Person Relationship Specialty Start Date End Date Shayla Alford D.O. PCP - General Internal Medicine 05/22/[address] [address] documented as of this encounter
--- OUTSIDE RECORDS SUMMARY | 2022-05-27 11:58 | XMS_ITS | Encounter Summary ---
:1945 Author Organization [facility] Address [address] [place] [address] Care Team Providers Name Role Phone Shayla Alford D.O. Primary Care Provider [phone] Reason for Visit Reason Comments Shortness of Breath Encounter Details Date Type Department Care Team Description 01/30/2021 Nurse Triage Department of Internal Elisa Woody Sho rtness of Breath Medicine in [facility] [address] [place] [address] [address] [place] [address] Social History Tobacco Use Types [...] do you attend mormon or Never 2021 sikh services? Do you [...] completed or the highest Martin, MEd, CHIEF CREATIVE OFFICER, CAYDEN) degree you have received? Sex [...] [2] WORSE than normal Protocols used: BREATHING [id number] COVID-19 Nurse Line Screening ASSESSMENT Region Select appropriate region: : [place] Age Pathway Select approprite pathway: : Adult [...] water are not available, use a hand mail room -Avoid touching your eyes, nose and mouth. [...] documented as of this encounter Care Teams Electrical Technician Instructor Relationship Specialty Start Date End Date Shayla Alford D.O. PCP - General Internal Medicine 05/22/[address] [address] documented as of this encounter
--- OUTSIDE RECORDS SUMMARY | 2022-05-27 11:58 | XMS_ITS | Encounter Summary ---
:1945 Author Organization [facility] Address [address] [place] [address] Care Team Providers Name Role Phone Shayla Alford D.O. Primary Care Provider [phone] Encounter Details Date Type Department Care Team Description 12/22/2020 Hospital Encounter Department of Xu Prescott Acute O n Chronic Systolic (Congestive) Heart Failure (HCC); Laboratory Medicine Pato Chronic Kidney Disease (CKD), Stage 3 Un specified (HCC) in [address], [place] [address] Social History Tobacco Use Types Packs/Day [...] do you attend judaism or Never 2021 alevism services? Do you [...] have completed or the highest Martin, MEd, LANDSCAPE CREW MEMBER, CAYDEN) degree you have received? Sex [...] mouth tabletIndications: daily. 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 eGFR Non-Black/ 35 (L) >=60 mL/min/BSA 12/22/2020 2:00 PM CDT [place] Chinese Comment: ----ADDITIONAL INFORMATION---- Estimated GFR calculated using [...] Phon e Number [facility]- [address] [place] [address] [place] [address] System in [place] [address] [facility] documented in this encounter Visit Diagnoses Diagnosis Acute On Chronic Systolic (Congestive) H eart Failure (HCC) Chronic Kidney Disease (CKD), Stage 3 Un specified (HCC) documented in this encounter Additional Health Concerns Assessment Noted Time PHQ-9 Depression Total Score: 18 04/28/2018 11:27 AM C DT documented as of this encounter Care Teams Production Leader Relationship Specialty Start Date End Date Shayla Alford D.O. PCP - General Internal Medicine 05/22/[address] [place] [address] documented as of this encounter
--- OUTSIDE RECORDS SUMMARY | 2022-05-27 11:58 | XMS_ITS | Encounter Summary ---
:1945 Author Organization [facility] Address [address] [place] [address] Care Team Providers Name Role Phone Shayla Alford D.O. Primary Care Provider [phone] Reason for Visit Reason Comments Shortness of [...] Expiration Date Visits Requ ested Visits Authorized [id number] Closed 12/18/2020 12/18/2021 1 1 Encounter Details Date Type Department Care Team Description 12/18/2020 Office Visit Department of Family Augustin Wong Sho rtness Of Breath (Primary Dx); Cadence Fleming M.D. 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 Do you [...] have completed or the highest Martin, MEd, DYNAMITE SHOOTER, CAYDEN) degree you have received? Sex [...] Master's degree (e.g., MA, MS, Martin, MEd, DYNAMITE SHOOTER, CAYDEN) Occupational History Employer: RETIRED Social Needs [...] More than three times a week Attends zoroastrian service: Never Active member of club or [...] (Congestive) Heart Failure (HCC) Atherosclerotic Heart Disease [place] Coronary Artery With Other Forms Angina Pectoris [...] agreed to go to the ER at [place]. ER called an signed out the patient to them. 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 PCP - General Internal Medicine 05/22/[address] [address] documented as of this encounter
--- OUTSIDE RECORDS SUMMARY | 2022-05-27 11:58 | XMS_ITS | Encounter Summary ---
:1945 Author Organization [facility] Address [address] [place] [address] Care Team Providers Name Role Phone Shayla Alford D.O. Primary Care Provider [phone] Reason for Visit Reason Comments Shortness of Breath Encounter Details Date Type Department Care Team Description 12/18/2020 - Emergency [facility] ED Effusion Pleural (Primary Dx ); 12/19/[address] [place] [address] Social History Tobacco Use Types Packs/Day [...] do you attend protestant or Never 2021 buddhist services? Do you [...] have completed or the highest Martin, MEd, LOAD DISPATCHER LOCAL, CAYDEN) degree you have received? Sex Assigned [...] by mouth tabletIndications: daily. 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 PCP - General Internal Medicine 05/22/20 [address] [place] [address] documented as of this encounter
--- OUTSIDE RECORDS SUMMARY | 2022-05-27 11:58 | XMS_ITS | Encounter Summary ---
:1945 Author Organization [facility] Address [address] [place] [address] Care Team Providers Name Role Phone Shayla Alford D.O. Primary Care Provider [phone] Encounter Details Date Type Department Care Team Description 01/11/2021 Hospital Encounter Department of José Luis Alford thyroidism Laboratory Medicine in Gianna Mcguire [place], [place] [address] [place] [phone] Social History Tobacco Use Types [...] do you attend anglican or Never 2021 tenriism services? Do you [...] completed or the highest Martin, MEd, ASSISTANT COUNSEL, CAYDEN) degree you have received? Sex Assigned [...] by mouth tabletIndications: daily. 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 PCP - General Internal Medicine 05/22/20 [address] [place] [address] documented as of this encounter
--- OUTSIDE RECORDS SUMMARY | 2022-05-27 11:58 | XMS_ITS | Encounter Summary ---
:[address] [facility] Address [address] [place] [address] Care Team Providers Name Role Phone Shayla Alford D.O. Primary Care Provider [phone] Encounter Details Date Type Department Care Team Description 12/27/2020 Hospital Encounter Department of Westley corley Obstructive Pulmonary Medicine n, Soraya Mcguire Pulmonary Disease in [place], [address] Without Exace rbation [facility] ([facility]) [address] [facility] [place] [address] Social History Tobacco Use Types [...] do you attend temple or Never 2021 worship services? Do you [...] have completed or the highest Martin, MEd, OPTICAL INSTRUMENT REPAIRER, CAYDEN) degree you have received? Sex [...] daily SYRINGE-NEEDLE,INSULIN,0. 0 5 ML (INSULIN SYRINGE [facility]) amiodarone (PACERONE) 200 Take 200 mg by [...] by mouth tabletIndications: daily. 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) ([facility]), Diabetes Mellitus Type 2 ([facility]), Hypertension Essential Primary levothyroxine (SYNTHROID, Take 1 [...] Address City/State/ZIP Code Phon e Number [facility] documented in this encounter Visit Diagnoses Diagnosis Chronic Obstructive Pulmonary Disease Wi thout Exacerbation (HCC) documented in this encounter Additional Health Concerns Assessment Noted Time PHQ-9 Depression Total Score: 18 04/28/2018 11:27 AM C DT documented as of this encounter Care Teams Production Sanitizer Relationship Specialty Start Date End Date Shayla Alford D.O. PCP - General Internal Medicine 05/22/20 [address] [place] [address] documented as of this encounter
--- OUTSIDE RECORDS SUMMARY | 2022-05-27 11:58 | XMS_ITS | Encounter Summary ---
:1945 Author Organization [facility] Address [address] [place] [address] Care Team Providers Name Role Phone Shayla Alford D.O. Primary Care Provider [phone] Reason for Visit Reason Comments Shortness of Breath COVID Nurse Line Encounter Details Date Type Department Care Team Description 12/18/2020 Nurse Triage Department of Internal Milena Mackenzie, Shortness of Breath; [facility] [place] [address] [facility] [address] [place] [phone] Social History Tobacco Use Types Packs/Day Years [...] do you attend methodist or Never 2021 pentecostal services? Do you [...] have completed or the highest Martin, MEd, ENTRY LEVEL ACCOUNT REPRESENTATIVE, CAYDEN) degree you have received? Sex Assigned at Date Recorded Male 05/21/2018 2:34 PM CDT documented as of this encounter Miscellaneous Notes Telephone Encounter - Milena Mackenzie R.N. - 12/18/2020 9:02 AM CDT COVID-19 Nurse Line Screening ASSESSMENT Region Select appropriate region: : [place] Age Pathway Select approprite pathway: : Adult [...] water are not available, use a hand casting technician -Avoid touching your eyes, nose and mouth. [...] care: Yes The following references were used: [facility] novel coronavirus (COVID- 19) resources Nursing [...] [2] WORSE than normal Protocols used: BREATHING [id number] documented in this encounter Plan of Treatment Not on filedocumented as of this encounter Visit Diagnoses Not on filedocumented in this encounter Additional Health Concerns Assessment Noted Time PHQ-9 Depression Total Score: 18 04/28/2018 11:27 AM C DT documented as of this encounter Care Teams Machine Compositor Relationship Specialty Start Date End Date Shayla Alford D.O. PCP - General Internal Medicine 05/22/20 [address] [place] [phone] documented as of this encounter
--- OUTSIDE RECORDS SUMMARY | 2022-05-27 11:58 | XMS_ITS | Encounter Summary ---
:1945 Author Organization [facility] Address [address] [place] [address] Care Team Providers Name Role Phone Shayla Alford D.O. Primary Care Provider [phone] Reason for Visit Reason Comments Follow-up 1 week Appointment Request (Routine) - Closed Specialty Diagnoses / Procedures Referred By Contact Refer red To Contact Family Medicine Referral ID Status Reason Start Date Expiration Date Visits Requ ested Visits Authorized [id number] Closed 01/30/2021 01/30/2022 1 1 Encounter Details Date Type Department Care Team Description 02/06/2021 Office Visit Department of Family Augustin Wong Acu te On Chronic Diastolic (Congestive) Heart Failure (HCC) (Primary Dx); Medicine, Cadence Whyte Effusion Pleural Clinic, in [address] [address] [place], [place] [phone] [address] (Work) [phone] Social History Tobacco Use Types Packs/Day Years [...] do you attend scientologist or Never 2021 episcopalian services? Do you belong to any clubs or No 10/09/2021 organizations such as scientologist groups, PerfectPosts, fraSemiLev or athletic groups, or school groups? How [...] have completed or the highest Martin, MEd, WASTEWATER PLANT OPERATOR, CAYDEN) degree you have received? [...] Master's degree (e.g., MA, MS, Martin, MEd, WASTEWATER PLANT OPERATOR, CAYDEN) Occupational History Employer: RETIRED Tobacco [...] than three times a week ??? Attends Anglican Services: Never ??? Active Member of Clubs [...] eGFR-Black/Afri 36 (L) >=60 02/06/2021 [facility] can [place] mL/min/BSA 2:00 PM CDT Comment: ----ADDITIONAL INFORMATION---- Estimated GFR calculated using the 2009 CKD_EPI creatinine equation. eGFR Non-Black/ 31 (L) >=60 mL/min/BSA 02/06/2021 2:00 PM CDT [place] Comment: ----ADDITIONAL INFORMATION---- Estimated [...] Number [facility]- [address] [place] [address] [place] [address] System in [place] [address] [facility] documented in this encounter Visit Diagnoses Diagnosis Acute On Chronic Diastolic (Congestive) Heart Failure (HCC) - Primary Effusion Pleural documented in this encounter Additional Health Concerns Assessment Noted Time PHQ-9 Depression Total Score: 18 04/28/2018 11:27 AM C DT documented as of this encounter Care Teams Cook Supervisor Relationship Specialty Start Date End Date Shayla Alford D.O. PCP - General Internal Medicine 05/[address] [place] [address] documented as of this encounter
--- OUTSIDE RECORDS SUMMARY | 2022-05-27 11:58 | XMS_ITS | Encounter Summary ---
:1945 Author Organization [facility] Address [address] [place] [address] Care Team Providers Name Role Phone Shayla Alford D.O. Primary Care Provider [phone] Reason for Visit Reason Comments Follow-up 5 day follow up Other discuss grapefruit juice and information on COPD and who is to repeat colonoscopy Outpatient (Routine) - Closed Specialty Diagnoses / Procedures Referred By Contact Refer red To Contact Community Internal Xu Prescott M.D. [facility] Medicine [facility] [place] [address] Referral ID Status Reason Start Date Expiration Date Visits Requ ested Visits Authorized [id number] Closed 12/20/2020 12/20/2021 1 1 Encounter Details Date Type Department Care Team Description 12/25/2020 Office Visit Department of Xu Prescott M. D. Acute On Chronic Systolic (Congestive) H eart Failure (HCC) (Primary Dx); Internal Medicine in [address] [facility] [address] [facility] Chronic Kidney Disease (CKD), Stage 3b G lomerular Filtration Rate (GFR) 30 To 44 (HCC); [place] [address] Asthma Extrinsic Moderate (HCC); [address] [phone] Diabetes Mellitus Type 2 Hyp erglycemia (HCC) [place], [place] (Work) [address] [phone] Social History Tobacco Use Types Packs/Day Years [...] do you attend baptist or Never 2021 cheondoism services? Do you [...] completed or the highest Martin, MEd, ROLLER PRINTING SUPERVISOR, CAYDEN) degree you have received? Sex [...] CLINIC PROGRESS NOTE SUBJECTIVE LOCATION OF EXAM: [facility] CHIEF COMPLAINT/REASON FOR VISIT Chief Complaint [...] documented as of this encounter Care Teams Chain Offbearer Relationship Specialty Start Date End Date Shayla Alford D.O. PCP - General Internal Medicine 05/22/[address] [phone] (work) documented as of this encounter
--- OUTSIDE RECORDS SUMMARY | 2022-05-27 11:58 | XMS_ITS | Encounter Summary ---
:[address] [facility] Address [address] [place] [address] Care Team Providers Name Role Phone Shayla Alford D.O. Primary Care Provider [phone] Encounter Details Date Type Department Care Team Description 01/30/2021 Clinical Communication Department of Internal Andrei Dejesus Medicine in [place], [place], [place] Ma[place] [address] [place] [phone] Social History Tobacco Use Types Packs/Day Years [...] do you attend confucianist or Never 2021 samaritan services? Do you [...] completed or the highest Martin, MEd, GENERAL ASSEMBLER, CAYDEN) degree you have received? Sex [...] He made an appointment to see a [place] provider today and will then follow up [...] documented as of this encounter Care Teams Union Representative Relationship Specialty Start Date End Date Shayla Alford D.O. PCP - General Internal Medicine 05/22/[address] [phone] documented as of this encounter
--- OUTSIDE RECORDS SUMMARY | 2022-05-27 11:58 | XMS_ITS | Encounter Summary ---
:1945 Author Organization [facility] Address [address] [place] [address] Care Team Providers Name Role Phone Shayla Alford D.O. Primary Care Provider [phone] Encounter Details Date Type Department Care Team Description 01/31/2021 Clinical Communication Department of [facility] Kaushik Wong Medicine, [place], [address] [address] [place], [place] [phone] [address] (Work) [phone] Social History Tobacco Use Types Packs/Day Years [...] do you attend islam or Never 2021 confucianist services? Do you [...] have completed or the highest Martin, MEd, TANK FARM GAUGER, CAYDEN) degree you have received? Sex Assigned [...] documented as of this encounter Care Teams Leather Coater Relationship Specialty Start Date End Date Shayla Alford D.O. PCP - General Internal Medicine 05/22/20 [address] [address] documented as of this encounter
--- OUTSIDE RECORDS SUMMARY | 2022-05-27 11:58 | XMS_ITS | Encounter Summary ---
:1945 Author Organization [facility] Address [address] [place] [address] Care Team Providers Name Role Phone Shayla Alford D.O. Primary Care Provider [phone] Encounter Details Date Type Department Care Team Description 12/24/2020 Lab Department of [facility] Ligia Alford For Screening Medicine, [facility] Tulio Mcguire For Other Viral Diseases [address] (COVID-19) [place], [place] 134 [facility] [address] [place] [address] [phone] Social History Tobacco Use Types Packs/Day Years [...] do you attend samaritan or Never 2021 catholic services? Do you [...] have completed or the highest Martin, MEd, ADULT SECONDARY EDUCATION INSTRUCTOR, CAYDEN) degree you have received? Sex [...] RNA, V Asymptomatic (12/24/2020 9:41 AM CDT) [facility] Method Time Signature SARS-CoV-2 Swab, 12/25/2020 [...] pe rformed using the Aptima SARS-CoV-2 assay ([employer] on the Harlan Sys tem under emergency use authorization (EUA) by the U.S. Food and Drug Administ ration. Fact sheets for this EUA assay can be fo und at the following links: For Healthcare Providers: https://www.fd a.gov/media/875046/download For Patients: https://www.fda.gov/media/ 968136/download Specimen Anatomical Collection Method Collection Time Receive d Time (Source) Location / / Volume Laterality Varies 12/24/2020 9:41 AM 7:14 (Nasopharynx) CDT AM CDT Shayla Alford D.O. LAB MICROBIOLOGY - GENERAL ORDERABLES Performing Organization Address City/State/[facility] Phon e Number [facility]- [address] [place] [address] [place] [address] System [address] documented in this encounter Visit Diagnoses Diagnosis Encounter For Screening For Other Viral Diseases (COVID-19) documented in this encounter Additional Health Concerns Infection Onset Date Last Indicated Resolved Time COVID19 Pending 12/23/2020 12/24/2020 12/25/2020 2:43 PM CDT Assessment Noted Time PHQ-9 Depression Total Score: 18 04/28/2018 11:27 AM C DT documented as of this encounter Care Teams Bushwalking Guide Relationship Specialty Start Date End Date Shayla Alford D.O. PCP - General Internal Medicine 05/22/[address] [place] [address] documented as of this encounter
--- OUTSIDE RECORDS SUMMARY | 2022-05-27 11:58 | XMS_ITS | Encounter Summary ---
:1945 Author Organization [facility] Address [address] [place] [address] Care Team Providers Name Role Phone Shayla Alford.OMauro Primary Care Provider [phone] Reason for Visit Reason Comments Form Review OSM Encounter Details Date Type Department Care Team Description 01/07/2021 Clinical Communication Department of Alexys marin Review (OSM) Internal Medicine in [place], [place] D.O. [address] [facility] [address] [place], [place] [phone] [address] Social History Tobacco Use Types Packs/Day [...] do you attend yazdanism or Never 2021 anglican services? Do you [...] have completed or the highest Martin, MEd, CONSERVATION ENGINEER, CAYDEN) degree you have received? Sex Assigned at Date Recorded Male 05/21/2018 2:34 PM CDT documented as of this encounter Miscellaneous Notes Telephone Encounter - Tari Crystal - 01/07/2021 2:19 PM CDT [facility] outside records have been uploaded into patient's [...] as of this encounter Care Teams Assistant Track And Field Coach Relationship Specialty Start Date End Date Shayla Alford D.O. PCP - General Internal Medicine 05/22/20 [address] [place] [address] documented as of this encounter
--- OUTSIDE RECORDS SUMMARY | 2022-05-27 11:58 | XMS_ITS | Encounter Summary ---
:1945 Author Organization [facility] Address [address] [place] [address] Care Team Providers Name Role Phone Shayla Alford D.O. Primary Care Provider [phone] Reason for Visit Reason Comments Shortness of Breath Has been going on for about a year but worse over the past 3 weeks, no head aches or dizz iness, he has balance issues. He states that his lungs just d ont feel like they have the capacity to take in enough oxygen. He has seen a adapted physical education teacher and they said his lungs are good. He wonders if it may be his heart. He has also been more tired tracy n usual. Appointment Request (Routine) - Closed Specialty Diagnoses / Procedures Referred By Contact Refer red To Contact Referral ID Status Reason Start Date Expiration Date Visits Requ ested Visits Authorized [id number] Closed 01/30/2021 01/30/2022 1 1 Encounter Details Date Type Department Care Team Description 01/30/2021 Office Visit Department of [facility] Augustin Wong Fai lushadia Heart ([facility]) (Primary Dx); Cadence Fleming M.D. 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 Do you [...] have completed or the highest Martin, MEd, RIB BENDER, CAYDEN) degree you have received? Sex Assigned [...] Master's degree (e.g., MA, MS, Martin, MEd, RIB BENDER, CAYDEN) Occupational History Employer: RETIRED Tobacco Use [...] than three times a week ??? Attends [employer] Services: Never ??? 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 I called his adapted physical education teacher office- Dr. Sims to get his recommendation [...] eGFR-Black/Afri 47 (L) >=60 01/30/2021 [facility] can Maldivian mL/min/BSA 6:34 PM CDT Comment: ----ADDITIONAL INFORMATION---- Estimated GFR calculated using the 2009 CKD_EPI creatinine equation. eGFR Non-Black/ 41 (L) >=60 mL/min/BSA 01/30/2021 6:34 PM CDT [facility] [place]ian Comment: ----ADDITIONAL INFORMATION---- Estimated GFR calculated using [...] Organization Address City/State/ZIP Code Phon e Number [facility]- [address] [place] [address] 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 PCP - General Internal Medicine 05/22/[address] [address] documented as of this encounter
--- OUTSIDE RECORDS SUMMARY | 2022-05-27 11:58 | XMS_ITS | Encounter Summary ---
:1945 Author Organization [facility] Address [address] [place] [address] Care Team Providers Name Role Phone Shayla Alford D.O. Primary Care Provider [phone] Reason for Visit Reason Comments Doctor requesting to discuss patient with you Encounter Details Date Type Department Care Team Description 01/30/2021 Clinical Division of Ailyn Sims Doctor shadia Duque M.D. to discuss patient Medicine in [address] [place] [address] with you [facility] [address] [place] [address] [place], [place] (Work) [address] [phone] Social History Tobacco Use Types Packs/Day Years [...] do you attend synagogue or Never 2021 mormonism services? Do you [...] have completed or the highest Martin, MEd, ROBOT PROGRAMMER, CAYDEN) degree you have received? Sex [...] as of this encounter Care Teams Dining Service Inspector Relationship Specialty Start Date End Date Shayla Alford D.O. PCP - General Internal Medicine 05/22/202199 26[facility] [place] [address] documented as of this encounter
--- OUTSIDE RECORDS SUMMARY | 2022-05-27 11:58 | XMS_ITS | Encounter Summary ---
:1945 Author Organization [facility] Address [address] [place] [address] Care Team Providers Name Role Phone Shayla Alford D.O. Primary Care Provider [phone] Encounter Details Date Type Department Care Team Description 12/18/2020 Clinical Communication Department of Internal Andrei Dejesus Medicine in [place], [place], [place]uro [place] [address] [place] [phone] Social History Tobacco Use Types Packs/Day Years [...] do you attend taoist or Never 2021 sabianist services? Do you [...] have completed or the highest Martin, MEd, FASHION COORDINATOR, CAYDEN) degree you have received? Sex [...] documented as of this encounter Care Teams Vessel Builder Relationship Specialty Start Date End Date Shayla Alford D.O. PCP - General Internal Medicine 05/22/202199 26 [facility] [place] [address] documented as of this encounter
--- OUTSIDE RECORDS SUMMARY | 2022-05-27 11:58 | XMS_ITS | Encounter Summary ---
:1945 Author Organization [facility] Address [address] [place] [address] Care Team Providers Name Role Phone Shayla Alford D.O. Primary Care Provider [phone] Encounter Details Date Type Department Care Team Description 01/30/2021 Hospital Encounter Department of Augustin Wong [facility] Heart (HCC); Laboratory Medicine Pato Duque Anemia in [facility] [address] [place], [place] 300 [facility] [address] [place], [place] [phone] [address] (Work) [phone] Social History Tobacco Use Types Packs/Day Years [...] do you attend faith or Never 2021 taoism services? Do you [...] completed or the highest Martin, MEd, VIDEO JOURNALIST, CAYDEN) degree you have received? Sex Assigned [...] mouth tabletIndications: daily. 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 eGFR Non-Black/ 41 (L) >=60 mL/min/BSA 01/30/2021 6:34 PM CDT [facility] [place] Comment: ----ADDITIONAL INFORMATION---- Estimated GFR calculated using [...] e Number [facility]- [address] [place] [address] [place] [address] System in [place] [address] (ABNORMAL) CBC with Differential, Blood (01/30/2021 2:57 PM CDT) [facility] Method Time Signature Hemoglobin 10.7 (L) [...] Organization Address City/State/ZIP Code Phon e Number [address] [place] [address] [facility] [address] [place] [address] System [address] documented in this encounter Visit Diagnoses Diagnosis Failure Heart (HCC) Anemia documented in this encounter Additional Health Concerns Assessment Noted Time PHQ-9 Depression Total Score: 18 04/28/2018 11:27 AM C DT documented as of this encounter Care Teams Environmental Systems Coordinator Relationship Specialty Start Date End Date Shayla Alford D.O. PCP - General Internal Medicine 05/22/20 [address], [place] [address] documented as of this encounter
--- OUTSIDE RECORDS SUMMARY | 2022-05-27 11:58 | XMS_ITS | Encounter Summary ---
:1945 Author Organization [facility] Address [address] [place] [address] Care Team Providers Name Role Phone Shayla Alford D.O. Primary Care Provider [phone] Reason for Visit Reason Comments Pancreas Results Encounter Details Date Type Department Care Team Description 01/31/2021 Clinical Division of Parminder Pancreas (Resul ts) Communication Gastroenterology in [place], [place] M.D. [address] [facility] [address] [place] [address] [place] [address] Social History Tobacco Use Types Packs/Day Years [...] have completed or the highest Martin, MEd, VEGETABLE FARMER, CAYDEN) degree you have received? Sex [...] as of this encounter Care Teams Sales Representative Womens Health Relationship Specialty Start Date End Date Shayla Alford D.O. PCP - General Internal Medicine 05/22/[address] [address] documented as of this encounter
--- OUTSIDE RECORDS SUMMARY | 2022-05-27 11:59 | XMS_ITS | Encounter Summary ---
:1945 Author Organization [facility] Address [address] [place] [address] Care Team Providers Name Role Phone Shayla Alford D.O. Primary Care Provider [phone] Encounter Details Date Type Department Care Team Description 10/27/2020 Hospital Encounter Department of Alexys Failure Heart (HCC); Laboratory Medicine Shayla queen Hyperten sion Essential Primary; in [place] Diabetes Mellitus Type 2 Hyperglycemia ( HCC) [place] [address] [place] [phone] Social History Tobacco Use Types Packs/Day Years [...] do you attend confucianist or Never 2021 buddhism services? Do you [...] have completed or the highest Martin, MEd, BARREL FILLER, CAYDEN) degree you have received? Sex Assigned [...] daily SYRINGE-NEEDLE,INSULIN,0. 0 5 ML (INSULIN SYRINGE [facility]) amiodarone (PACERONE) 200 Take 200 mg by [...] by mouth tabletIndications: daily. 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 - 11/01/2020 10:17 AM RANCH COOK Please call patient following information. Potassium and [...] by: Shayla Alford D.O. 11/01/20 10:16 AM RANCH COOK H COOK documented in this encounter Plan of Treatment Not on filedocumented as of this encounter Procedures Procedure Name Priority Date/Time Associated Diagnosis Comme nts HEMOGLOBIN A1C, B Routine 10/27/2020 10:32 Diabetes Mellitus T ype Results for this AM RANCH COOK 2 Hyperglycemia (HCC) proced ure are in the results section. BASIC METABOLIC Routine 10/27/2020 10:32 Failure Heart ( HCC) Results for this PANEL, S/P AM RANCH COOK Hypertension Essential proce dure are in Primary the results section. documented in this encounter Results (ABNORMAL) Hemoglobin A1c (10/27/2020 10:32 AM RANCH COOK) P athologist Signature Hemoglobin A1c, 8.4 (H) 4.2 - 5.6 10/27/2020 [facility] B % 11:22 AM RANCH COOK Comment: Hemoglobin A1c values greater than or eq ual to 6.5 percent are diagnostic for diabetes mellitus. ?? Diagnosis should be confirmed by repeat testing. ??In diabet ic patients, HbA1c goals should be discussed with healthcar e provider. Specimen Anatomical Collection Method Collection Time Receive d Time (Source) Location / / Volume Laterality Blood (Blood, 10/27/2020 10:32 10/27/2020 Venous) AM RANCH COOK 10:43 AM RANCH COOK Shayla Alford D.O. LAB BLOOD ADD-ON Performing Organization Address City/State/ZIP Code Phon e Number [facility]- [address] [place] [address] [place] [address] System in [place] [address] (ABNORMAL) Basic Metabolic Panel (10/27/2020 10:32 AM RANCH COOK) Analysis Performed At Patho logist Time Signature Potassium, P 4.5 3.6 - 5.2 10/27/2020 [facility] mmol/L 11:28 AM [facility] COOK Sodium, P 139 135 - 145 10/27/2020 [facility] mmol/L 11:28 AM [facility] COOK Chloride, P 103 98 - 107 10/27/2020 [place] mmol/L 11:28 AM [facility] C[facility] Bicarbonate, P 26 22 - 29 10/27/2020 [facility] mmol/L 11:28 AM [facility] COOK Anion Gap, P 10 7 - 15 10/27/2020 [facility] 11:28 AM [facility] C[facility] BUN (Blood Urea 50 (H) 8 - 24 10/27/2020 OW[facility] Nitrogen), P mg/dL 11:28 AM RAN[facility] COOK Creatinine 1.91 (H) 0.74 - 10/27/2020 [facility] 1.35 mg/dL 11:28 AM RANCH COOK eGFR-Black/Afri 38 (L) >=60 10/27/2020 OW[facility] can Montenegrin mL/min/BSA 11:28 AM RANCH COOK Comment: ----ADDITIONAL INFORMATION---- Estimated GFR calculated using the 2009 CKD_EPI creatinine equation. eGFR Non-Black/ 33 (L) >=60 mL/min/BSA 10/27/2020 11:28 AM RANCH COOK [facility] [place] Comment: ----ADDITIONAL INFORMATION---- Estimated GFR calculated using the 2009 CKD_EPI creatinine equation. Calcium, Total, P 9.1 8.8 - 10.2 mg/dL 10/27/2020 11:2 8 AM [facility]AN[facility] C[facility] Glucose, P 141 (H) 70 - 140 mg/dL 10/27/2020 11:28 AM RANCH COOK [facility] Specimen Anatomical Collection Method Collection Time Receive d Time (Source) Location / / Volume Laterality Blood (Blood, 10/27/2020 10:32 10/27/2020 Venous) AM RANCH COOK 10:43 AM RANCH COOK Shayla Alford D.O. LAB BLOOD ADD-ON Performing Organization Address City/State/ZIP Code Phon e Number [facility]- [address] [place] [address] [facility] [place] [address] System in [place] [address] documented in this encounter Visit Diagnoses Diagnosis Failure Heart (HCC) Hypertension Essential Primary Diabetes Mellitus Type 2 Hyperglycemia ( HCC) documented in this encounter Additional Health Concerns Assessment Noted Time PHQ-9 Depression Total Score: 18 04/28/2018 11:27 AM C DT documented as of this encounter Care Teams Marketing Sales Representative Relationship Specialty Start Date End Date Shayla Alford D.O. PCP - General Internal Medicine 05/22/[address] [place] [address] documented as of this encounter
--- OUTSIDE RECORDS SUMMARY | 2022-05-27 11:59 | XMS_ITS | Encounter Summary ---
:1945 Author Organization [facility] Address [address] [place] [address] Care Team Providers Name Role Phone Shayla Alford D.O. Primary Care Provider [phone] Encounter Details Date Type Department Care Team Description 11/24/2020 Orders Only Department of Internal Rocío Brooks pothyroidism (Primary Medicine in [place], , [place] Mcguire Dx) [place] [address] [place] [phone] Social History Tobacco Use Types Packs/Day [...] do you attend restoration or Never 2021 rastafarian services? Do you [...] have completed or the highest Martin, MEd, JUVENILE CORRECTIONS OFFICER, CAYDEN) degree you have received? Sex [...] documented as of this encounter Care Teams Corrugated Box Machine Operator Relationship Specialty Start Date End Date Shayla Alford D.O. PCP - General Internal Medicine 05/22/[address] [address] documented as of this encounter
--- OUTSIDE RECORDS SUMMARY | 2022-05-27 11:59 | XMS_ITS | Encounter Summary ---
:1945 Author Organization [facility] Address [address] [place] [address] Care Team Providers Name Role Phone Shayla Alford D.O. Primary Care Provider [phone] Encounter Details Date Type Department Care Team Description 11/22/2020 Hospital Encounter Department of José Luis Alford thyroidism Laboratory Medicine in Gianna Mcguire [place], [place] [address] [place] [address] Social History Tobacco Use Types [...] do you attend yazdanism or Never 2021 hindu services? Do you [...] have completed or the highest Martin, MEd, SPIRAL WINDER, CAYDEN) degree you have received? Sex Assigned [...] by mouth tabletIndications: daily. 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 - 11/24/2020 9:33 AM THERAPY COORDINATOR Please call patient following information. We will need to increase your thyroid medication further up. From 50 mcg daily to 75 mcg daily. Prescription will be sent to your pharmacy for pickup. Keep your 50 mcg tablets for future use. Electronically signed by: Shayla Alford D.O. 11/24/20 9:32 AM THERAPY COORDINATOR APY COORDINATOR documented in this encounter Plan of Treatment Not on filedocumented as of this encounter Procedures Procedure Name Priority Date/Time Associated Diagnosis Comme nts T3 Routine 11/22/2020 10:57 Hypothyroidism Results f or this (TRIIODOTHYRONINE), AM THERAPY COORDINATOR procedur e are in FREE, S the results section. THYROID-STIMULATING Routine 11/22/2020 10:57 Hypothyroidism Re sults for this HORMONE-SENSITIVE AM THERAPY COORDINATOR procedure are in (S-TSH) the results section. T4 (THYROXINE), Routine 11/22/2020 10:57 Hypothyroidism Result s for this FREE, S AM THERAPY COORDINATOR procedure are i n the results section. documented in this encounter Results T4 (Thyroxine), Free (11/22/2020 10:57 AM THERAPY COORDINATOR) P athologist Signature T4 (Thyroxine), 0.9 0.9 - 1.7 11/22/2020 [facility] Free, P ng/dL 11:49 AM THERAPY COORDINATOR Comment: Biotin has been identified by the capri enriquez as a potential interfering substance. ??Higher concentr ations of biotin may be found in multivitamins, hair/nail supple ments, and workout supplements. ??If the result does not [facility] clinical observations, repeat testing after patient refrains fr om the use of supplements for at least 12 hours. Specimen Anatomical Collection Method Collection Time Receive d Time (Source) Location / / Volume Laterality Blood (Blood, 11/22/2020 10:57 11/22/2020 Venous) AM THERAPY COORDINATOR 10:58 AM THERAPY COORDINATOR Shayla Alford D.O. LAB BLOOD ADD-ON Performing Organization Address City/State/ZIP Code Phon e Number [facility]- [address] [place] [address] [facility] [place] [address] System in [place] [address] (ABNORMAL) T3 (Triiodothyronine), Free (11/22/2020 10:57 AM THERAPY COORDINATOR) athologist Signature T3 2.4 (L) 2.8 - 4.4 11/23/2020 [facility] (Triiodothyron pg/mL 9:17 AM THERAPY COORDINATOR ine), Free, S Specimen Anatomical Collection Method Collection Time Receive d Time (Source) Location / / Volume Laterality Blood (Blood, 11/22/2020 10:57 11/23/2020 7:57 Venous) AM THERAPY COORDINATOR AM THERAPY COORDINATOR Shayla Alford D.O. LAB BLOOD ADD-ON Performing Organization Address City/State/ZIP Code Phon e Number [facility] [address] [place], [place] [address] [place] [address] [place] [address] Laboratory Medicine and Pathology [address] [place] (ABNORMAL) S-TSH (Thyroid-Stimulating Hormone - Sensitive) (11/22/2020 10:57 AM THERAPY COORDINATOR) P athologist Signature TSH, Sensitive 14.0 (H) 0.3 - 4.2 11/22/2020 [facility] mIU/L 11:49 AM THERAPY COORDINATOR Specimen Anatomical Collection Method Collection Time Receive d Time (Source) Location / / Volume Laterality Blood (Blood, 11/22/2020 10:57 11/22/2020 Venous) AM THERAPY COORDINATOR 10:58 AM THERAPY COORDINATOR Shayla Alford D.O. LAB BLOOD ADD-ON Performing Organization Address City/State/ZIP Code Phon e Number [facility]- [address] [place] [address] [place] [address] System in [place] [address] documented in this encounter Visit Diagnoses Diagnosis Hypothyroidism documented in this encounter Additional Health Concerns Assessment Noted Time PHQ-9 Depression Total Score: 18 04/28/2018 11:27 AM C DT documented as of this encounter Care Teams Janitorial Supervisor Relationship Specialty Start Date End Date Shayla Alford D.O. PCP - General Internal Medicine 05/22/[address] [place] [address] documented as of this encounter
--- OUTSIDE RECORDS SUMMARY | 2022-05-27 11:59 | XMS_ITS | Encounter Summary ---
:1945 Author Organization [facility] Address [address] [place] [address] Care Team Providers Name Role Phone Shayla Alford D.OMauro Primary Care Provider [phone] Reason for Visit Reason Comments Med Refill Encounter Details Date Type Department Care Team Description 11/27/2020 Refill Department of Internal Medicine Shayla Rob, [facility] [address] [place] [address] [place] [address] (Wo rk) Social History Tobacco Use Types [...] do you attend scientology or Never 2021 methodist services? Do you [...] have completed or the highest Martin, MEd, METAL FABRICATOR HELPER, CAYDEN) degree you have received? Sex Assigned at Date Recorded Male 05/21/2018 2:34 PM CDT documented as of this encounter Miscellaneous Notes Telephone Encounter - Whitney Chavez - 11/27/2020 9:13 AM CST Primary Provider: Shayla Alford D.O. Name of Medication: Trulicity Strength: 0.75mg/0.5mL injection Frequency: 1 injection per week Pharmacy (include location): [facility] Patient states that this was to have been called in last week and the pharmacy states they have not received this. Patient has not been able to get this filled since provider called it in. CORN MANAGER PRODUCTION documented in this encounter Plan of Treatment [...] documented as of this encounter Care Teams Florist Manager Relationship Specialty Start Date End Date Shayla Alford D.O. PCP - General Internal Medicine 05/22/[address] [address] documented as of this encounter
--- OUTSIDE RECORDS SUMMARY | 2022-05-27 11:59 | XMS_ITS | Encounter Summary ---
:1945 Author Organization [facility] Address [address] [place] [address] Care Team Providers Name Role Phone Shayla Alford D.O. Primary Care Provider [phone] Reason for Visit Outpatient (Routine) - Closed Specialty Diagnoses / Procedures Referred By Contact Refer red To Contact Pharmacy Diagnoses Diabetes Mellitus Type 2 Hyperglycemia (HCC) Shayla Alford [facility] [address] DMauroOMauro [address], [place] [address] Referral ID Status Reason Start Date Expiration Date Visits Requ ested Visits Authorized [id number] Closed 10/20/2020 10/20/2021 1 1 Encounter Details Date Type Department Care Team Description 11/08/2020 Office Visit Department of Family Shayla Murillo D.O. [address], [place] [address] Diabetes Mellitus Type 2 Hyperglycemia ( HCC) (Primary Dx); Medicine in Alysha Lu, Pharm.DMauro [address], [place] [address] Medication Management Issue [place], [place] [address] [place] [address] Social History Tobacco Use Types Packs/Day [...] do you attend advent or Never 2021 sikh services? Do you [...] completed or the highest Martin, MEd, SENIOR STAFF PSYCHOLOGIST, CAYDEN) degree you have received? Sex Assigned [...] expiration date and get new meter from [place] if ) Follow-up in 2-3 weeks for glucose review Alysha Lopez Pharm.D. Clinical Pharmacist 11/08/2020 COORDINATOR documented in this encounter Consult Notes Alysha Lu Pharm.D. - 11/08/2020 1:15 PM CST Medication Therapy Management SUBJECTIVE Jonnathan Costa is a 75 y.o. male, who is seen today by [facility] Pharmacist for targeted medicationreview of diabetes. He was referred by Shayla Alford D.O. for pharmacist management of diabetes as outlined in gvah-wm-eama/video encounter on 10/20/2020. Patient was at the [...] accomplished by review of all prescription medications, [id number]-[id number] medications and vitamin and supplements from patient's [...] glucose readings and potential dose adjustments. Patient???s hhypR0A is due on December 2020. Plan: The [...] referring provider via an electronically routed chart. COORDINATOR documented in this encounter Plan of Treatment Not on filedocumented as of this encounter Visit Diagnoses Diagnosis Diabetes Mellitus Type 2 Hyperglycemia ( HCC) - Primary Medication Management Issue documented in this encounter Additional Health Concerns Assessment Noted Time PHQ-9 Depression Total Score: 18 04/28/2018 11:27 AM C DT documented as of this encounter Care Teams Used Car Salesperson Relationship Specialty Start Date End Date Shayla Alford D.O. PCP - General Internal Medicine 05/22/[address] [address] documented as of this encounter
--- OUTSIDE RECORDS SUMMARY | 2022-05-27 11:59 | XMS_ITS | Encounter Summary ---
:1945 Author Organization [facility] Address [address] [place] [address] Care Team Providers Name Role Phone Shayla Alford D.O. Primary Care Provider Encounter Details Date Type Department Care Team Description 11/17/2020 Hospital Encounter Department of Manuel Evans Systolic Radiology, Agustín Barber M.D. (Congestive) Heart [facility], in 200 [facility] Failure (HCC) [facility] [address] 200 [facility] [phone] [place], [place] (Work) [phone] Social History Tobacco Use Types Packs/Day Years [...] do you attend holiness or Never 2021 protestant services? Do you [...] have completed or the highest Martin, MEd, EMPLOYMENT SUPERVISOR, CAYDEN) degree you have received? Sex [...] daily SYRINGE-NEEDLE,INSULIN,0. 0 5 ML (INSULIN SYRINGE [facility]) amiodarone (PACERONE) 200 Take 200 mg by [...] by mouth tabletIndications: daily. 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 documented in this encounter Results DX Chest AP or PA and Lateral 2 Views (11/17/2020 9:31 AM FINAL ASSEMBLER) Anatomical Region Laterality Modality Chest, Thoracic RST LOS, Thoracic ARZ LOS, Thoracic N/A Digital Radiography FLA LOS Specimen (Source) Anatomical Collection Method Collection Time Re ceived Time Location / / Volume Laterality 11/17/2020 9:50 AM FINAL ASSEMBLER Impressions 11/17/2020 9:51 AM FINAL ASSEMBLER In the interval from the prior study of 05/18/2020, a small right pleural effusion has decreased in size. Trace left pleural effusion has likely resolved. No definite additional changes . Calcified aorta. Borderline size of cardiac silhouette with slight pulmonary venous hypertension. Mitral annular calcification. Degenerative changes thor acic spine. Narrative 11/17/2020 9:51 AM FINAL ASSEMBLER EXAM: ??DX CHEST AP OR PA AND [...] - General Internal Medicine 05/22/[address] [address] documented as of this encounter
--- OUTSIDE RECORDS SUMMARY | 2022-05-27 11:59 | XMS_ITS | Encounter Summary ---
:1945 Author Organization [facility] Address [address] [place] [address] Care Team Providers Name Role Phone Shayla Alford D.O. Primary Care Provider [phone] Reason for Referral MRI/CAT/PET Scan (Routine) - Closed Specialty Diagnoses / Procedures Referred By Contact Refer red To Contact Radiology Diagnoses Pancreatitis Chronic (HCC) Emil Zurita M.D. [facility] Procedures MR Abdomen MRCP without IV Contrast [address] [place], [place] [address] Referral ID Status Reason Start Date Expiration Date Visits Requ ested Visits Authorized [id number] Closed 12/07/2020 12/07/2021 1 1 ICIST NUCLEAR Reason for Visit Appointment Request (Routine) - Closed Specialty Diagnoses / Referred By Contact Referred To Procedures Contact Gastroenterology and Diagnoses Pancreatitis Chronic (HCC) Emil Zurita Hepatology [place] [address] [place] [address] Referral ID Status Reason Start Date Expiration Date Visits Requ ested Visits Authorized [id number] Closed 11/27/2020 11/27/2021 1 1 Encounter Details Date Type Department Care Team Description 12/05/2020 Virtual Visit Division of Greyson Zurita C hronic Gastroenterology in Rhoda Stein (HCC) (Primary Dx) [place], [place] 200 [facility] 200 [place] [address] [phone] Social History Tobacco Use Types Packs/Day Years [...] do you attend jewish or Never 2021 faith services? Do you [...] have completed or the highest Martin, MEd, FORENSIC ECONOMIST, CAYDEN) degree you have received? Sex Assigned at Date Recorded Male 05/21/2018 2:34 PM CDT documented as of this encounter Progress Notes Emil Zurita M.D. - 12/05/2020 4:00 PM CST Gastroenterology and Hepatology Virtual Visit (COVID-19 Pandemic) Date of Consultation: 12/07/2020 This patient was virtually interviewed via real time audio in the patient's home by Emil Zurita M.D. at [facility]. The history and findings below are based on review of available medical records and a virtual conversation with the patient. This Virtual Visit was performed during theCOVID- emergency, when many states had issued geujghp-jx-wsvhy orders. Referring Physician: Emil Zurita M.D. Primary Care Providers: Shayla Alford D.O. (General) [address] [facility] [address] Chief Complaint/Reason for Consult: No primary diagnosis found. History of Present Illness: Mr. Costa is a 75 y.o. male who is being seen remotely today. Mr. 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 He suffered an OK in March 2020 and is recovering from that. About 2 months back he noticed his bowel habits changed f rom what was usually diarrhea to him being constipated. He has discontinued the Creon, and is using 6 oz of prune juice daily which has helped somewhat. He has lost about 30-40 lbs weight since the OK.He has noted to have a elevated TSH [...] with local provider(s). Emil Zurita M.D. 12/07/2020 ICIST NUCLEAR documented in this encounter Plan of Treatment [...] eGFR-Black/Afri 42 (L) >=60 12/12/2020 [facility] can [place] mL/min/BSA 1:35 PM CDT Comment: ----ADDITIONAL INFORMATION---- Estimated GFR calculated using the 2009 CKD_EPI creatinine equation. eGFR Non-Black/ 37 (L) >=60 mL/min/BSA 12/12/2020 1:35 PM CDT [facility] [place] Comment: ----ADDITIONAL INFORMATION---- Estimated GFR calculated using the 2009 CKD_EPI creatinine equation. Specimen Anatomical Collection Method Collection Time Receive d Time (Source) Location / / Volume Laterality Blood (Blood, 12/12/2020 12:37 12/12/2020 Venous) PM CDT 12:52 PM CDT Authorizing Provider Result Deloris Zurita M.D. LAB BLOOD ADD-ON Performing Organization Address City/[facility]/ZIP Code Phon e Number [facility]- [address] [place] [address] [place] [address] System in [place] [address] [facility] Prothrombin Time (PT) (12/12/2020 12:37 PM CDT) [...] Phon e Number [facility]- [address] [place] [address] [place] [address] System in [place] [address] [facility] 25-Hydroxyvitamin D2 and D3 (12/12/2020 12:37 PM CDT) P athologist Signature 25-Hydroxy D2 <4.0 ng/mL 12/14/2020 [facility] 1:23 AM CDT 25-Hydroxy D3 35 ng/mL 12/14/2020 [facility] 1:23 AM CDT 25-Hydroxy D 35 ng/mL [facility]14/2020 [facility] Total 1:23 AM CDT Comment: ----REFERENCE VALUE---- 25-HYDROXY D TOTAL (D2+D3) Optimum level s in the healthy population are 20-50, patients with bone disease may benefit from higher levels within this r stan. ----ADDITIONAL INFORMATION---- This test was developed and its performa nce characteristics determined by [facility] in a manner consistent with CLIA requirements. This test has not been cleared or approved by the [place] d and Drug Administration. Specimen Anatomical Collection Method Collection Time Receive d Time (Source) Location / / Volume Laterality Blood (Blood, 12/12/2020 12:37 12/13/2020 7:48 Venous) PM CDT AM CDT Emil Zurita M.D. LAB BLOOD ADD-ON Performing Organization Address City/[facility] Phon e Number [facility] [address] [place], [place] [address] [place], [place] [address] [address] Laboratory Medicine and Pathology [address] [place] Vitamin A and Vitamin E (12/12/2020 12:37 PM CDT) athologist Signature Vitamin A 70.5 32.5 - 78.0 12/14/2020 1:31 [facility] mcg/dL PM CDT Comment: ----ADDITIONAL INFORMATION---- This test was developed and its performa nce characteristics determined by [facility] in a manner consistent with CLIA requirements. This test has not been cleared or approved by the [place]. [place] d and Drug Administration. A-Tocopherol, Vitamin E 6.6 5.5 - 17.0 mg/L 12/15/2020 7:53 AM CDT [facility] Specimen Anatomical Collection Method Collection Time Receive d Time (Source) Location / / Volume Laterality Blood (Blood, 12/12/2020 12:37 12/13/2020 4:45 Venous) PM CDT PM CDT Emil Zurita M.D. LAB BLOOD NON ADD-ON Performing Organization Address City/[facility] Code Phon e Number [facility] [address] [place], [place] [address] SUPPORT CENTER [facility] [place] [address] Laboratory Medicine and Pathology [address] [place] documented in this encounter Visit Diagnoses Diagnosis Pancreatitis Chronic (HCC) - Primary Pancreatitis Chronic (HCC) documented in this encounter Additional Health Concerns Assessment Noted Time PHQ-9 Depression Total Score: 18 04/28/2018 11:27 AM C DT documented as of this encounter Care Teams Leg Breaker Relationship Specialty Start Date End Date Shayla Alford D.O. PCP - General Internal Medicine 05/22/20 [address] [place] [address] documented as of this encounter
--- OUTSIDE RECORDS SUMMARY | 2022-05-27 11:59 | XMS_ITS | Encounter Summary ---
:1945 Author Organization [facility] Address [address] [place] [address] Care Team Providers Name Role Phone Shayla Alford D.O. Primary Care Provider [phone] Reason for Referral Outpatient (Routine) - Closed Specialty Diagnoses / Procedures Referred By Contact Refer red To Contact Diagnoses Chronic Systolic (Congestive) Heart Failure (HCC) Manuel Evans M.D. [facility] Procedures ECG Heart rhythm monitor (Holter) [address] [place] [address] Referral ID Status Reason Start Date Expiration Date Visits Requ ested Visits Authorized [id number] Closed 11/17/2020 11/17/2021 1 1 TERMINAL GAUGER Reason for Visit Outpatient (Routine) - Closed Specialty Diagnoses / Procedures Referred By Contact Refer red To Contact Diagnoses Chronic Systolic (Congestive) Heart Failure (HCC) Manuel Evans M.D. [facility] Procedures ECG Heart rhythm monitor (Holter) [address] [place] [address] Referral ID Status Reason Start Date Expiration Date Visits Requ ested Visits Authorized [id number] Closed 11/17/2020 11/17/2021 1 1 Encounter Details Date Type Department Care Team Description 11/17/2020 Hospital Encounter Department of Jigar Evans Systolic Cardiovascular Manuel Barber M.D. (Congestive) Heart Diseases in [place], [facility] [address] Failure (HCC) [place], [place] [address] [place] [address] [place], [place] [phone] [address] (Work) [phone] Social History Tobacco Use Types Packs/Day Years [...] do you attend orthodox or Never 2021 restorationist services? Do you [...] have completed or the highest Martin, MEd, REGULATORY ASSISTANT, CAYDEN) degree you have received? Sex [...] by mouth tabletIndications: daily. 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 documented in this encounter Results HOLTER MONITOR - IN CLINIC OIL WELL FISHING TOOL OPERATOR (11/17/2020 3:20 PM TANK TERMINAL GAUGER) [facility] gist Method Time Signature Pause Longest 2.14 s HOLTER SENTINEL VE Max Per [id number] HOLTER Hour Time SENTINEL VE Total Beats 256 count HOLTER SENTINEL SVE Max Per 19 count HOLTER Hour SENTINEL Mean Heart 56 bpm HOLTER Rate SENTINEL Max Heart Rate [id number] HOLTER Time SENTINEL Max Heart Rate 83 bpm HOLTER SENTINEL SVE Percent 0 percent HOLTER Beats SENTINEL SVT Runs 0 count HOLTER SENTINEL Analysis Date 20,210,222 HOLTER SENTINEL Holter Pauses 40 count HOLTER SENTINEL Bradycardia 0 count HOLTER Runs SENTINEL Min Heart Rate 47 bpm HOLTER SENTINEL Tachycardia 0 count HOLTER Runs SENTINEL VT Runs 0 count HOLTER SENTINEL Recording Date [id number] HOLTER SENTINEL VE Percent 0 percent HOLTER Beats SENTINEL AF Count 0 count HOLTER SENTINEL SVE Max Per [id number] HOLTER Hour Time SENTINEL Min Heart Rate [id number] HOLTER Time SENTINEL SVE Total 118 count HOLTER Beats SENTINEL VE Max Per 28 count HOLTER Hour SENTINEL Specimen (Source) Anatomical Collection Method Collection Time Re ceived Time Location / / Volume Laterality 11/17/2020 3:18 PM TANK TERMINAL GAUGER Narrative This result has an attachment that [...] as of this encounter Care Teams Data Center Operator Relationship Specialty Start Date End Date Shayla Alford D.O. PCP - General Internal Medicine 05/22/20 [address], [place] [address] documented as of this encounter
--- OUTSIDE RECORDS SUMMARY | 2022-05-27 11:59 | XMS_ITS | Encounter Summary ---
:1945 Author Organization [facility] Address [address] [place] [address] Care Team Providers Name Role Phone Shayla Alford D.O. Primary Care Provider Encounter Details Date Type Department Care Team Description 11/23/2020 Orders Only Department of Internal Rocío rBooks pothyroidism (Primary Medicine in [place], , Coleman Mcguire Dx) [place] [address] [place] [phone] Social History Tobacco Use Types Packs/Day [...] do you attend sabianism or Never 2021 presybeterian services? Do you [...] have completed or the highest Martin, MEd, CHAIR AND COUCH MAKER, [place]) degree you have received? Sex [...] supplements. ??If the result does not [facility] clinical observations, repeat testing after patient refrains fr om the use of supplements for at least 12 hours. Specimen Anatomical Collection Method Collection Time Receive d Time (Source) Location / / Volume Laterality Blood (Blood, 02/20/2021 11:09 02/20/2021 Venous) AM CDT 11:15 AM CDT Shayla Alford D.O. LAB BLOOD ADD-ON Performing Organization Address City/State/ZIP Code Phon e Number [facility]- [phone] [place] [address] System in [place] [address] (ABNORMAL) T3 (Triiodothyronine), Free (02/20/2021 11:09 AM CDT) P athologist Signature T3 2.5 (L) 2.8 - 4.4 02/20/2021 [facility] (Triiodothyron pg/mL 9:56 PM CDT ine), Free, S Specimen Anatomical Collection Method Collection Time Receive d Time (Source) Location / / Volume Laterality Blood (Blood, 02/20/2021 11:09 02/20/2021 9:08 Venous) AM CDT PM CDT Shayla Alford D.O. LAB BLOOD ADD-ON Performing Organization Address City/State/ZIP Code Phon e Number [facility] [address] [place], [place] [address] SUPPORT CENTER [facility] [place] [address] Laboratory Medicine and Pathology [address] [place] documented in this encounter Visit Diagnoses Diagnosis Hypothyroidism - Primary documented in this encounter Additional Health Concerns Assessment Noted Time PHQ-9 Depression Total Score: 18 04/28/2018 11:27 AM C DT documented as of this encounter Care Teams Wheat Farmer Relationship Specialty Start Date End Date Shayla Alford D.O. PCP - General Internal Medicine 05/22/202199 [place] [phone] documented as of this encounter
--- OUTSIDE RECORDS SUMMARY | 2022-05-27 11:59 | XMS_ITS | Encounter Summary ---
:1945 Author Organization [facility] Address [address] [place] [address] Care Team Providers Name Role Phone Shayla Alford D.O. Primary Care Provider [phone] Reason for Referral Outpatient (Routine) - Closed Specialty Diagnoses / Procedures Referred By Contact Refer red To Contact Diagnoses Chronic Systolic (Congestive) Heart Failure (HCC) Manuel Evans M.D. [facility] Procedures ECG Heart rhythm monitor (Holter) [address] [place] [address] Referral ID Status Reason Start Date Expiration Date Visits Requ ested Visits Authorized [id number] Closed 11/17/2020 11/17/2021 1 1 OSIVES OPERATOR Reason for Visit Outpatient (Routine) - Closed Specialty Diagnoses / Procedures Referred By Contact Refer red To Contact Cardiovascular Disease Diagnoses Chronic Systolic (Congestive) Heart Failure (HCC) Manuel Evans [facility] Felicita Whyte [address] [place] [address] Referral ID Status Reason Start Date Expiration Date Visits Requ ested Visits Authorized [id number] Closed 06/06/2020 06/06/2021 1 1 Encounter Details Date Type Department Care Team Description 11/17/2020 Office Visit Department of Manuel Evans Sy stolic (Congestive) Heart Failure (HCC) (Primary Dx); Cardiovascular Medicine Pato Barber Hypertension Essential Primary; in [facility] rotary saw operator [address] Beat Premature Ventricular; [address] [place], [place] [phone] [phone] Social History Tobacco Use Types Packs/Day Years [...] you attend oriental orthodox or Never 2021 amish services? Do [...] have completed or the highest Martin, MEd, NEGATIVE RETOUCHER, CAYDEN) degree you have received? Sex Assigned at Date Recorded Male 05/21/2018 2:34 PM CDT documented as of this encounter Last Filed Vital Signs Vital Sign Reading Time Taken Comments Blood Pressure 148/75 11/17/2020 2:22 PM EXPLOSIVES OPERATOR Pulse 50 11/17/2020 2:22 PM EXPLOSIVES OPERATOR Temperature - - Respiratory Rate - - Oxygen Saturation - - Inhaled Oxygen Concentration - - Weight 97.6 kg (215 lb 2.7 oz) 11/17/2020 2:22 PM EXPLOSIVES OPERATOR Height 188 cm (6' 2.02) 11/17/2020 2:22 PM EXPLOSIVES OPERATOR Body Mass Index 27.61 11/17/2020 2:22 PM EXPLOSIVES OPERATOR documented in this encounter Consult Notes Manuel [...] Elevated RVSP 45. Mitral valve disease with cwhm-ty-dlcmisqh stenosis. ?? ASSESSMENT / PLAN #1 Chronic [...] in 3 months. Manuel Evans M.D. 11/17/20 OSIVES OPERATOR documented in this encounter Plan of Treatment Not on filedocumented as of this encounter Procedures Procedure Name Priority Date/Time Associated Diagnosis Comme nts T4 (THYROXINE), TOT Routine 11/17/2020 8:51 AM Hypothyroidism Results for this ONLY, S EXPLOSIVES OPERATOR procedure are i n the results section. documented in this encounter Results HOLTER MONITOR - IN CLINIC PROCESSING CLERK (11/17/2020 3:20 PM EXPLOSIVES OPERATOR) [facility] gist Method Time Signature Pause Longest 2.14 s HOLTER SENTINEL VE Max Per [id number] HOLTER Hour Time SENTINEL VE Total Beats 256 count HOLTER SENTINEL SVE Max Per 19 count HOLTER Hour SENTINEL Mean Heart 56 bpm HOLTER Rate SENTINEL Max Heart Rate [id number] HOLTER Time SENTINEL Max Heart Rate 83 bpm HOLTER SENTINEL SVE Percent 0 percent HOLTER Beats SENTINEL SVT Runs 0 count HOLTER SENTINEL Analysis Date 20,210,222 HOLTER SENTINEL Holter Pauses 40 count HOLTER SENTINEL Bradycardia 0 count HOLTER Runs SENTINEL Min Heart Rate 47 bpm HOLTER SENTINEL Tachycardia 0 count HOLTER Runs SENTINEL VT Runs 0 count HOLTER SENTINEL Recording Date [id number] HOLTER SENTINEL VE Percent 0 percent HOLTER Beats SENTINEL AF Count 0 count HOLTER SENTINEL SVE Max Per [id number] HOLTER Hour Time SENTINEL Min Heart Rate [id number] HOLTER Time SENTINEL SVE Total 118 count HOLTER Beats SENTINEL VE Max Per 28 count HOLTER Hour SENTINEL Specimen (Source) Anatomical Collection Method Collection Time Re ceived Time Location / / Volume Laterality 11/17/2020 3:18 PM EXPLOSIVES OPERATOR Narrative This result has an attachment that is no t available. Manuel Evans M.D. CV CARDIAC SERVICES PROCEDUR ES Performing Organization Address City/State/ZIP Code Phon e Number HOLTER SENTINEL HOLTER SENTINEL NA (ABNORMAL) T4 (Thyroxine), Total Only (11/17/2020 8:51 AM EXPLOSIVES OPERATOR) athologist Signature T4 4.4 (L) 4.5 - 11.7 11/17/2020 DTL (Thyroxine), mcg/dL 3:55 PM EXPLOSIVES OPERATOR Total Only, S Specimen Anatomical Collection Method Collection Time Receive d Time (Source) Location / / Volume Laterality Blood (Blood, 11/17/2020 8:51 AM 11/17/19 21 3:13 Venous) EXPLOSIVES OPERATOR PM EXPLOSIVES OPERATOR Manuel Evans M.D. LAB BLOOD ADD-ON Performing Organization Address City/State/ZIP Code Phon e Number [facility] [address] [place], [place] [address] [facility] [place] [address] [facility] [address] documented in this encounter Visit Diagnoses Diagnosis Chronic Systolic (Congestive) Heart Fail ure (HCC) - Primary Hypertension Essential Primary Beat Premature Ventricular Hypothyroidism documented in this encounter Additional Health Concerns Assessment Noted Time PHQ-9 Depression Total Score: 18 04/28/2018 11:27 AM C DT documented as of this encounter Care Teams Radio Machinist Relationship Specialty Start Date End Date Shayla Alford D.O. PCP - General Internal Medicine 05/22/[address] [address] documented as of this encounter
--- OUTSIDE RECORDS SUMMARY | 2022-05-27 11:59 | XMS_ITS | Encounter Summary ---
:1945 Author Organization [facility] Address [address] [place] [address] Care Team Providers Name Role Phone Shayla Alford D.O. Primary Care Provider [phone] Encounter Details Date Type Department Care Team Description 11/13/2020 Orders Only [facility] PCP [facility] Sa neno Espinal M.D. [address] [place], [place] [phone] (Wo rk) Social History [...] do you attend orthodox or Never 2021 mandaeism services? Do you [...] have completed or the highest Martin, Sirena, RESOURCE CONSERVATION SPECIALIST, [place]) degree you have received? Sex Assigned at Date Recorded Male 05/21/2018 2:34 PM CDT documented as of this encounter Plan of Treatment Not on filedocumented as of this encounter Visit Diagnoses Not on filedocumented in this encounter Additional Health Concerns Assessment Noted Time PHQ-9 Depression Total Score: 18 04/28/2018 11:27 AM C DT documented as of this encounter Care Teams Operating Room Orderly Relationship Specialty Start Date End Date Shayla Alford D.O. PCP - General Internal Medicine 05/22/[address] [phone] documented as of this encounter
--- OUTSIDE RECORDS SUMMARY | 2022-05-27 11:59 | XMS_ITS | Encounter Summary ---
:1945 Author Organization [facility] Address [address] [place] [address] Care Team Providers Name Role Phone Shayla Alford D.O. Primary Care Provider [phone] Encounter Details Date Type Department Care Team Description 12/12/2020 Hospital Encounter Department of Parminder, Pancreat itis Chronic Laboratory Medicine Rhoda Stein ([facility]) in [place], [facility] [address] [place], [place] [address] [address] [place], [place] [phone] (Work) [phone] Social History Tobacco Use Types Packs/Day Years [...] you attend latter day or Never 2021 lutheran services? Do you [...] have completed or the highest Martin, MEd, SIGNALS COLLECTOR/ANALYST, CAYDEN) degree you have received? Sex Assigned [...] by mouth tabletIndications: daily. 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 25-HYDROXYVITAMIN D2 Routine 12/12/2020 12:37 Pancreatitis Chr onic Results for this AND D3, S PM CDT ([facility]) procedure are i n the results section. PROTHROMBIN TIME Routine 12/12/2020 12:37 Pancreatitis Chronic Results for this (PT), P PM CDT ([facility]) procedure are i n the results section. CREATININE WITH Routine 12/12/2020 12:37 Pancreatitis Chronic Results for this EGFR, S/P PM CDT ([facility]) procedure are i n the results section. documented in this encounter Results (ABNORMAL) Creatinine with Estimated GFR (12/12/2020 12:37 PM CDT) Analysis Performed At [facility] logist Time Signature Creatinine 1.75 (H) 0.74 - 12/12/2020 [place] 1.35 mg/dL 1:35 PM CDT eGFR-Black/Afri 42 (L) >=60 12/12/2020 [place] mL/min/BSA 1:35 PM CDT Comment: ----ADDITIONAL INFORMATION---- Estimated GFR calculated using the 2009 CKD_EPI creatinine equation. eGFR Non-Black/ 37 (L) >=60 mL/min/BSA 12/12/2020 1:35 PM CDT [place] Comment: ----ADDITIONAL INFORMATION---- Estimated GFR calculated using the 2009 CKD_EPI creatinine equation. Specimen Anatomical Collection Method Collection Time Receive d Time (Source) Location / / Volume Laterality Blood (Blood, 12/12/2020 12:37 12/12/2020 Venous) PM CDT 12:52 PM CDT Emil Zurita M.D. LAB BLOOD ADD-ON Performing Organization Address City/[facility]/ZIP Code Phon e Number [facility]- [address] [facility] [place] [address] [place] [address] System in [place] [address] [facility] Prothrombin Time (PT) (12/12/2020 12:37 PM [...] M.D. LAB BLOOD ADD-ON Performing Organization Address City/[facility]/ZIP Code Phon e Number [facility]- [address] [place] [address] [place] [address] System in [place] [address] 25-Hydroxyvitamin D2 and D3 (12/12/2020 12:37 PM CDT) P athologist Signature 25-Hydroxy D2 <4.0 ng/mL 12/14/2020 [facility] 1:23 AM CDT 25-Hydroxy D3 35 ng/mL 12/14/2020 [facility] 1:23 AM CDT 25-Hydroxy D 35 ng/mL 12/14/2020 [facility] Total 1:23 AM CDT Comment: ----REFERENCE VALUE---- 25-HYDROXY D TOTAL (D2+D3) Optimum level s in the healthy population are 20-50, patients with bone disease may benefit from higher levels within this r stan. ----ADDITIONAL INFORMATION---- This test was developed and its performa nce characteristics determined by [facility] in a manner consistent with CLIA requirements. This test has not been cleared or approved by the [place] d and Drug Administration. Specimen Anatomical Collection Method Collection Time Receive d Time (Source) Location / / Volume Laterality Blood (Blood, 12/12/2020 12:37 12/13/2020 7:48 Venous) PM CDT AM CDT Emil Zurita M.D. LAB BLOOD ADD-ON Performing Organization Address [facility] Phon e Number [facility] [address] [place] [address] SUPPORT [facility] [place] [address] Laboratory Medicine and Pathology [address] [place] [address] Dr. AYALA Vitamin A and Vitamin E (12/12/2020 12:37 PM CDT) P athologist Signature Vitamin A 70.5 32.5 - 78.0 12/14/2020 1:31 [facility] mcg/dL PM CDT Comment: ----ADDITIONAL INFORMATION---- This test was developed and its performa nce characteristics determined by [facility] in a manner consistent with CLIA requirements. This test has not been cleared or approved by the [place] d and Drug Administration. A-Tocopherol, Vitamin E 6.6 5.5 - 17.0 mg/L 12/15/2020 7:53 AM CDT [facility] Specimen Anatomical Collection Method Collection Time Receive d Time (Source) Location / / Volume Laterality Blood (Blood, 12/12/2020 12:37 12/13/2020 4:45 Venous) PM CDT PM CDT Emil Zurita M.D. LAB BLOOD NON ADD-ON Performing Organization Address City/[facility] Phon e Number [place] [phone] [place] [address] SU[address] [facility]ENTER [facility] [place] [address] Laboratory Medicine and Pathology [address] [place] documented in this encounter Visit Diagnoses Diagnosis Pancreatitis Chronic (HCC) documented in this encounter Additional Health Concerns Assessment Noted Time PHQ-9 Depression Total Score: 18 04/28/2018 11:27 AM C DT documented as of this encounter Care Teams Subway Repair Supervisor Relationship Specialty Start Date End Date Shayla Alford D.O. PCP - General Internal Medicine 05/22/[address] [phone] documented as of this encounter
--- OUTSIDE RECORDS SUMMARY | 2022-05-27 11:59 | XMS_ITS | Encounter Summary ---
:1945 Author Organization [facility] Address [address] [place] [address] Care Team Providers Name Role Phone Shayla Alford D.O. Primary Care Provider [phone] Encounter Details Date Type Department Care Team Description 11/17/2020 Hospital Encounter Department of Manuel Evans Systolic Laboratory Medicine Pato Barber (Congestive) Heart and Pathology, 200 [facility] Failure (HCC) [facility] [address] [place] [phone] 200 [facility] (Work) [place], [place] [phone] (Fax) [phone] Social History Tobacco Use Types Packs/Day Years [...] do you attend confucianist or Never 2021 adventist services? Do you [...] have completed or the highest Martin, MEd, ALL SOURCE ANALYST, [place]) degree you have received? Sex [...] by mouth tabletIndications: daily. 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 NT-PRO B-TYPE Routine 11/17/2020 9:03 Chronic Systolic Results for this NATRIURETIC PEPTIDE AM CHANGE ROOM ATTENDANT (Congestive) Heart pr ocedure are in (BNP), S Failure (HCC) the results section. CBC WITH DIFFERENTIAL, B Routine 11/17/2020 9:03 Chronic Systo lic Results for this AM CHANGE ROOM ATTENDANT (Congestive) Heart procedure are in Failure (HCC) the results section. BUN (BLOOD UREA Routine 11/17/2020 9:03 Chronic Systolic Resul ts for this NITROGEN), S/P AM CHANGE ROOM ATTENDANT (Congestive) Heart procedu re are in Failure (HCC) the results section. ASPARTATE Routine 11/17/2020 9:03 Chronic Systolic Results for this AMINOTRANSFERASE (AST), AM CHANGE ROOM ATTENDANT (Congestive) Hear t procedure are in S/P Failure (HCC) the results section. THYROID-STIMULATING Routine 11/17/2020 9:03 Chronic Systolic R esults for this HORMONE-SENSITIVE AM CHANGE ROOM ATTENDANT (Congestive) Heart proc edure are in (S-TSH) Failure (HCC) the results section. SODIUM, S/P Routine 11/17/2020 9:03 Chronic Systolic Results for this AM CHANGE ROOM ATTENDANT (Congestive) Heart procedure are in Failure (HCC) the results section. POTASSIUM, S/P Routine 11/17/2020 9:03 Chronic Systolic Result s for this AM CHANGE ROOM ATTENDANT (Congestive) Heart procedure are in Failure (HCC) the results section. GLUCOSE, FASTING, S/P Routine 11/17/2020 9:03 Chronic Systolic Results for this AM CHANGE ROOM ATTENDANT (Congestive) Heart procedure are in Failure (HCC) the results section. CREATININE WITH EGFR, Routine 11/17/2020 9:03 Chronic Systolic Results for this S/P AM CHANGE ROOM ATTENDANT (Congestive) Heart procedure are in Failure (HCC) the results section. BICARBONATE, B/S/P Routine 11/17/2020 9:03 Chronic Systolic Re sults for this AM CHANGE ROOM ATTENDANT (Congestive) Heart procedure are in Failure (HCC) the results section. documented in this encounter Results (ABNORMAL) NT-Pro B-Type Natriuretic Peptide (BNP) (11/17/2020 9:03 AM CHANGE ROOM ATTENDANT) athologist Signature NT-Pro BNP 2558 (H) <=119 pg/mL 11/17/2020 DTL 10:08 AM CHANGE ROOM ATTENDANT Comment: NT-proBNP values less than 300 pg/mL [...] (Blood, 11/17/2020 9:03 AM 11/17/19 9:26 Venous) CHANGE ROOM ATTENDANT AM CHANGE ROOM ATTENDANT Manuel Evans M.D. LAB BLOOD ADD-ON Performing Organization Address City/State/ZIP Code Phon e Number [facility] - [address] [place], [place] [address] [facility] [place] [place] [address] Laboratories-[facility] [address] Potassium (11/17/2020 9:03 AM CHANGE ROOM ATTENDANT) athologist Signature Potassium, S 4.3 3.6 - 5.2 11/17/2020 DTL mmol/L 10:08 AM CHANGE ROOM ATTENDANT Specimen Anatomical Collection Method Collection Time Receive d Time (Source) Location / / Volume Laterality Blood (Blood, 11/17/2020 9:03 AM 11/17/19 9:26 Venous) CHANGE ROOM ATTENDANT AM CHANGE ROOM ATTENDANT Manuel Evans M.D. LAB BLOOD ADD-ON Performing Organization Address City/State/[facility] Phon e Number [facility] - [address] [place], [place] [address] [facility] [address] Laboratories-[facility] 200 [facility] Bicarbonate (11/17/2020 9:03 AM CHANGE ROOM ATTENDANT) P athologist Signature Bicarbonate, S 25 22 - 29 11/17/2020 DTL mmol/L 10:08 AM CHANGE ROOM ATTENDANT Specimen Anatomical Collection Method Collection Time Receive d Time (Source) Location / / Volume Laterality Blood (Blood, 11/17/2020 9:03 AM 11/17/19 9:26 Venous) CHANGE ROOM ATTENDANT AM CHANGE ROOM ATTENDANT Manuel Evans M.D. LAB BLOOD ADD-ON Performing Organization Address City/State/[facility] Code Phon e Number [facility] - [address] [place], [place] [address] [place] [address] (ABNORMAL) S-TSH (Thyroid-Stimulating Hormone - Sensitive) (11/17/2020 9:03 AM CHANGE ROOM ATTENDANT) athologist Signature TSH, Sensitive 19.4 (H) 0.3 - 4.2 11/17/2020 DTL mIU/L 10:07 AM CHANGE ROOM ATTENDANT Specimen Anatomical Collection Method Collection Time Receive d Time (Source) Location / / Volume Laterality Blood (Blood, 11/17/2020 9:03 AM 11/17/19 9:26 Venous) CHANGE ROOM ATTENDANT AM CHANGE ROOM ATTENDANT Manuel Evans M.D. LAB BLOOD ADD-ON Performing Organization Address City/State/[facility] Code Phon e Number [facility] - [address] [place], [place] [address] [facility] [place] [address] Laboratories-[address] (ABNORMAL) CBC with Differential, Blood (11/17/2020 9:03 AM CHANGE ROOM ATTENDANT) Patholo gist Method Time Signature Hemoglobin 10.2 (L) 13.2 - 11/17/2020 DTL 16.6 g/dL 9:34 AM CHANGE ROOM ATTENDANT Hematocrit 30.8 (L) 38.3 - 11/17/2020 DTL 48.6 % 9:34 AM CHANGE ROOM ATTENDANT Erythrocytes 3.33 (L) 4.35 - 11/17/2020 DTL 5.65 9:34 AM CHANGE ROOM ATTENDANT x10(12)/L MCV 92.5 78.2 - 11/17/2020 DTL 97.9 fL 9:34 AM CHANGE ROOM ATTENDANT RBC Distrib Width 12.6 11.8 - 11/17/2020 DTL 14.5 % 9:34 AM CHANGE ROOM ATTENDANT Platelet Count 167 135 - 317 11/17/2020 DTL x10(9)/L 9:34 AM CHANGE ROOM ATTENDANT Leukocytes 6.6 3.4 - 9.6 11/17/2020 DTL x10(9)/L 9:34 AM CHANGE ROOM ATTENDANT Neutrophils 4.75 1.56 - 11/17/2020 DTL 6.45 9:34 AM CHANGE ROOM ATTENDANT x10(9)/L Lymphocytes 0.96 0.95 - 11/17/2020 DTL 3.07 9:34 AM CHANGE ROOM ATTENDANT x10(9)/L Monocytes 0.44 0.26 - 11/17/2020 DTL 0.81 9:34 AM CHANGE ROOM ATTENDANT x10(9)/L Eosinophils 0.35 0.03 - 11/17/2020 DTL 0.48 9:34 AM CHANGE ROOM ATTENDANT x10(9)/L Basophils 0.06 0.01 - 11/17/2020 DTL 0.08 9:34 AM CHANGE ROOM ATTENDANT x10(9)/L Specimen Anatomical Collection Method Collection Time Receive d Time (Source) Location / / Volume Laterality Blood (Blood, 11/17/2020 9:03 AM 11/17/19 21 9:26 Venous) CHANGE ROOM ATTENDANT AM CHANGE ROOM ATTENDANT Manuel Evans M.D. LAB BLOOD ADD-ON Performing Organization Address City/State/ZIP Code Phon e Number [facility] - [address] [place], [place] [address] [facility] [place] [address] Laboratories-[facility] [address] (ABNORMAL) Lipid Panel (11/17/2020 9:03 AM CHANGE ROOM ATTENDANT) athologist Signature Cholesterol, 118 mg/dL 11/17/2020 DTL Total 10:07 AM CHANGE ROOM ATTENDANT Comment: ----REFERENCE VALUE---- Desirable: < 200 Borderline high: 200 - 239 High: > or = 240 Triglycerides 90 mg/dL 11/17/2020 10:07 AM CHANGE ROOM ATTENDANT DT L Comment: ----REFERENCE VALUE---- Normal: <150 Borderline high: 150-199 High: 200-499 Very high: > or =500 Cholesterol, HDL, S 34 (L) >=40 mg/dL 11/17/2020 10:07 AM CHANGE ROOM ATTENDANT DTL Calculated LDL 66 mg/dL 11/17/2020 10:07 AM CHANGE ROOM ATTENDANT D TL Comment: ----REFERENCE VALUE---- Desirable: <100 Above Desirable: 100-129 Borderline high: 130-159 High: 160-189 Very high: > or =190 Cholesterol, Non-HDL, Calculated 84 mg/dL 021 10:07 AM CHANGE ROOM ATTENDANT DTL Comment: ----REFERENCE VALUE---- Desirable: <130 Above Desirable: 130-159 Borderline high: 160-189 High: 190-219 Very high: > or =220 Specimen Anatomical Collection Method Collection Time Receive d Time (Source) Location / / Volume Laterality Blood (Blood, 11/17/2020 9:03 AM 11/17/19 9:26 Venous) CHANGE ROOM ATTENDANT AM CHANGE ROOM ATTENDANT Manuel Evans M.D. LAB BLOOD ADD-ON Performing Organization Address City/[facility] Phon e Number [facility] - [address] [place] [address] (ABNORMAL) BUN (Blood Urea Nitrogen) (11/17/2020 9:03 AM CHANGE ROOM ATTENDANT) athologist Signature BUN (Blood Urea 57 (H) 8 - 24 11/17/2020 DTL Nitrogen), S mg/dL 10:08 AM CHANGE ROOM ATTENDANT Specimen Anatomical Collection Method Collection Time Receive d Time (Source) Location / / Volume Laterality Blood (Blood, 11/17/2020 9:03 AM 11/17/19 9:26 Venous) CHANGE ROOM ATTENDANT AM CHANGE ROOM ATTENDANT Manuel Evans M.D. LAB BLOOD ADD-ON Performing Organization Address City/[facility] Phon e Number [facility] - [address] AST (Aspartate Aminotransferase) (11/17/2020 9:03 AM CHANGE ROOM ATTENDANT) [facility] gist Method Time Signature Aspartate 31 8 - 48 11/17/2020 DTL Aminotransferase U/L 10:08 AM CHANGE ROOM ATTENDANT (AST), S Specimen Anatomical Collection Method Collection Time Receive d Time (Source) Location / / Volume Laterality Blood (Blood, 11/17/2020 9:03 AM 11/17/19 9:26 Venous) CHANGE ROOM ATTENDANT AM CHANGE ROOM ATTENDANT Manuel Evans M.D. LAB BLOOD ADD-ON Performing Organization Address City/[facility] Phon e Number [facility] - [address] (ABNORMAL) Creatinine with Estimated GFR (11/17/2020 9:03 AM CHANGE ROOM ATTENDANT) Analysis Performed At [facility] logist Time Signature Creatinine 1.86 (H) 0.74 - 11/17/2020 DTL 1.35 mg/dL 10:07 AM CHANGE ROOM ATTENDANT eGFR-Non 34 (L) >=60 11/17/2020 DTL Black/ mL/min/BSA 10:07 AM CHANGE ROOM ATTENDANT [place] Comment: ----ADDITIONAL INFORMATION---- Estimated GFR calculated using the 2009 CKD_EPI creatinine equation. eGFR-Black/ 39 (L) >=60 mL/min/BSA 2020 10:07 AM CHANGE ROOM ATTENDANT DTL Comment: ----ADDITIONAL INFORMATION---- Estimated GFR calculated using the 2009 CKD_EPI creatinine equation. Specimen Anatomical Collection Method Collection Time Receive d Time (Source) Location / / Volume Laterality Blood (Blood, 11/17/2020 9:03 AM 11/17/19 9:26 Venous) CHANGE ROOM ATTENDANT AM CHANGE ROOM ATTENDANT Manuel Evans M.D. LAB BLOOD ADD-ON Performing Organization Address City/State/[facility] Code Phon e Number [facility] - [address] DTL [place] [id number] [address] (ABNORMAL) Glucose, Fasting (11/17/2020 9:03 AM CHANGE ROOM ATTENDANT) P athologist Signature Glucose, P 219 (H) 70 - 100 11/17/2020 DTL mg/dL 9:56 AM CHANGE ROOM ATTENDANT Last Intake 1 hr 11/17/2020 DTL 9:26 AM CHANGE ROOM ATTENDANT Specimen Anatomical Collection Method Collection Time Receive d Time (Source) Location / / Volume Laterality Blood (Blood, 11/17/2020 9:03 AM 11/17/19 9:26 Venous) CHANGE ROOM ATTENDANT AM CHANGE ROOM ATTENDANT Manuel Evans M.D. LAB BLOOD NON ADD-ON Performing Organization Address [facility] Phon e Number [facility] - [address] [place] [address] Sodium (11/17/2020 9:03 AM CHANGE ROOM ATTENDANT) P athologist Signature Sodium, S 140 135 - 145 11/17/2020 DTL mmol/L 10:08 AM CHANGE ROOM ATTENDANT Specimen Anatomical Collection Method Collection Time Receive d Time (Source) Location / / Volume Laterality Blood (Blood, 11/17/2020 9:03 AM 11/17/19 9:26 Venous) CHANGE ROOM ATTENDANT AM CHANGE ROOM ATTENDANT Manuel Evans M.D. LAB BLOOD ADD-ON Performing Organization Address City/[facility] Phon e Number [facility] - [id number] [place] [address] documented in this encounter Visit Diagnoses Diagnosis Chronic Systolic (Congestive) Heart Fail ure (HCC) documented in this encounter Additional Health Concerns Assessment Noted Time PHQ-9 Depression Total Score: 18 04/28/2018 11:27 AM C DT documented as of this encounter Care Teams Water Inspector Relationship Specialty Start Date End Date Shayla Alford D.O. PCP - General Internal Medicine 05/22/20 [address] [place] [phone] documented as of this encounter
--- OUTSIDE RECORDS SUMMARY | 2022-05-27 11:59 | XMS_ITS | Encounter Summary ---
:1945 Author Organization [facility] Address [address] [place] [address] Care Team Providers Name Role Phone Shayla Alford D.O. Primary Care Provider Encounter Details Date Type Department Care Team Description 12/12/2020 Hospital Encounter Department of [place] Diabet es Mellitus Laboratory Medicine n, Gianna Mcguire Type 2 Without in [place], [address] Complication (H CC) [address] [place] [phone] Social History Tobacco Use [...] do you attend baptist or Never 2021 judaism services? Do you [...] have completed or the highest Martin, MEd, DAYCARE PROVIDER, [place]) degree you have received? Sex Assigned [...] tabletIndications: daily. 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) ([facility]), Diabetes Mellitus Type 2 ([facility]), Hypertension Essential Primary levothyroxine (SYNTHROID, Take 1 [...] Address City/State/ZIP Code Phon e Number [facility]- [address] [place] [address] [place] [address] System in [place] [address] [facility] documented in this encounter Visit Diagnoses Diagnosis Diabetes Mellitus Type 2 Without Complic ation (HCC) documented in this encounter Additional Health Concerns Assessment Noted Time PHQ-9 Depression Total Score: 18 04/28/2018 11:27 AM C DT documented as of this encounter Care Teams Title Camera Operator Relationship Specialty Start Date End Date Shayla Alford D.O. PCP - General Internal Medicine 05/22/202199 [place] [address] documented as of this encounter
--- OUTSIDE RECORDS SUMMARY | 2022-05-27 11:59 | XMS_ITS | Encounter Summary ---
:1945 Author Organization [facility] Address [address] [place] [address] Care Team Providers Name Role Phone Shayla Alford D.O. Primary Care Provider [phone] Reason for Referral Outpatient (Routine) - Closed Specialty Diagnoses / Procedures Referred By Contact Refer red To Contact [facility] ARMAAN Alford SE, D.O. [address] [phone] Referral ID Status Reason Start Date Expiration Date Visits Requ ested Visits Authorized [id number] Closed 12/12/2020 12/12/2021 1 1 Scheduling Instructions One hour due to heart failure , HTN, DM2 , HLP , COPD Reason for Visit Reason Comments Hypothyroidism Outpatient (Routine) - Closed Specialty Diagnoses / Procedures Referred By Contact Refer red To Contact [facility] ARMAAN Alford SE, D.O. [address] [place] [phone] Referral ID Status Reason Start Date Expiration Date Visits Requ ested Visits Authorized [id number] Closed 11/21/2020 11/21/2021 1 1 Encounter Details Date Type Department Care Team Description 12/12/2020 Office Visit [facility] [place] On ronic Systolic (Congestive) Heart Failure (HCC) (Primary Dx); Internal Medicine in Shayla D. O. Diabetes Mellitus Type 2 Hyperglycemia ( HCC); [place], [place] [address] Hypertension Essential Primary; [address] [place], [place] Hyperlipidemia; [place] [address] Stroke (HCC); [id number] Chronic Obstructive Pulmonar y Disease Without Exacerbation [...] do you attend temple or Never 2021 episcopal services? Do you [...] completed or the highest Martin, MEd, CAR CARDER, [place]) degree you have received? Sex Assigned [...] Body Mass Index 28.32 11/17/2020 2:22 PM MEAT LOINER documented in this encounter Progress Notes Shayla [...] been working with a committee at the [facility] to discuss the management of his diabetes. [...] succinate 50 mg by mouth daily, and [id number] mg by mouth daily. Continue to monitor [...] their behalf by Sarai Cason, a trained certified medical technician. The creation of this recordis based on the scribe remotely listening to the visit and the provider's statements to them. This do cument has been checked and approved by the attending provider. Time spent 45 minutes Electronically signed by: Shayla Alford D.O. 12/12/20 4:01 PM CDT documented in this encounter Plan of Treatment Scheduled Referrals Name Type Priority Associated Diagnoses Order S [facility] Internal Outpatient Referral Routine Ex pected: [...] e Number [facility]- [address] [place] [address] [place] [address] System in [place] [address] Pulmonary Function Tests (12/27/2020 2:48 PM CDT) Specimen (Source) Anatomical Location Collection Method / Collectio n Time Received Time / Laterality Volume Narrative This result has an attachment that is no t available. Shayla Alford D.O. PFT ORDERABLES Performing Organization Address City/[facility]/ZIP Code Phon e Number [facility] SUITE (ABNORMAL) Hemoglobin A1c (12/12/2020 12:37 [...] e Number [facility]- [address] [place] [address] [facility] [place] [address] System in [place] [address] documented in this encounter Visit [...] documented as of this encounter Care Teams Ceramic Research Engineer Relationship Specialty Start Date End Date Shayla Alford D.O. PCP - General Internal Medicine 05/22/[address] [phone] documented as of this encounter
--- OUTSIDE RECORDS SUMMARY | 2022-05-27 11:59 | XMS_ITS | Encounter Summary ---
:1945 Author Organization [facility] Address [address] [place] [address] Care Team Providers Name Role Phone Shayla Alford D.O. Primary Care Provider [phone] Reason for Referral Outpatient (Routine) - Closed Specialty Diagnoses / Procedures Referred By Contact Refer red To Contact Community Internal ARMAAN Alford [facility] Bernadette Mcguire D.O. [address] [place] [phone] Referral ID Status Reason Start Date Expiration Date Visits Requ ested Visits Authorized [id number] Closed 11/21/2020 11/21/2021 1 1 Scheduling Instructions One hour due to multiple concerns D RECORDER Reason for Visit Reason Comments Thyroid Problem Reports abnormal TSH Med Management Diabetes Mellitus Outpatient (Routine) - Closed Specialty Diagnoses / Procedures Referred By Contact Refer red To Contact Community Internal Diagnoses Failure Heart (HCC) Hypertension Essential Primary Diabetes Mellitus Type 2 Hyperglycemia (HCC) Pancreatitis Chronic Recurrent (HCC) ARMAAN Alford [facility] Tulio Mcguire [address] [place] [phone] Referral ID Status Reason Start Date Expiration Date Visits Requ ested Visits Authorized [id number] Closed 10/20/2020 10/20/2021 1 1 Encounter Details Date Type Department Care Team Description 11/21/2020 Office Visit Department of Internal Rocío Alvarado Mellitus Type 2 Hyperglycemia (HCC) (Primary Dx); Medicine in [place], [place] .O. Failure Heart (HCC); [place] [address] Hypertension Essential Primary; [address] [place], [place] Pancreatitis Chronic Recurre nt (HCC); [place] [address] Hypothyroidism; [phone] Screening Cancer Colon Social History [...] do you attend scientology or Never 2021 sabianist services? Do you [...] have completed or the highest Martin, MEd, HOTBED LEVER OPERATOR, CAYDEN) degree you have received? Sex Assigned at Date Recorded Male 05/21/2018 2:34 PM CDT documented as of this encounter Last Filed Vital Signs Vital Sign Reading Time Taken Comments Blood Pressure 144/66 11/21/2020 4:03 PM FIELD RECORDER Pulse 56 11/21/2020 4:03 PM FIELD RECORDER Temperature 36.1 ??C (97 ??F) 11/21/2020 4:03 PM FIELD RECORDER Respiratory Rate - - Oxygen Saturation 98% 11/21/2020 4:03 PM FIELD RECORDER Inhaled Oxygen Concentration - - Weight 98.8 kg (217 lb 13 oz) 11/21/2020 4:03 PM FIELD RECORDER Height - - Body Mass Index 27.95 11/17/2020 2:22 PM FIELD RECORDER documented in this encounter Progress Notes Shayla Alford D.O. - 11/21/2020 4:00 PM CST SUBJECTIVE [...] #3 Failure Heart (HCC). #4??Atherosclerotic Heart Disease [place] Coronary Artery With Other Forms Angina Pectoris [...] succinate 50 mg by mouth daily, and [id number] mg by mouth daily. Continue to monitor [...] their behalf by Sarai Cason, a trained er medical technician. The creation of this recordis based on the scribe remotely listening to the visit and the provider's statements to them. This do cument has been checked and approved by the attending provider. Time spent 55 minutes D RECORDER documented in this encounter Plan of Treatment Scheduled Referrals Name Type Priority Associated Diagnoses Order [facility] [employer] Internal Outpatient Referral Routine Ex pected: Medicine office 12/05/2020 visit (clinic) (Approximate) , Expires: 11/21/2023 documented as of this encounter Results T4 (Thyroxine), Free (11/22/2020 10:57 AM FIELD RECORDER) P athologist Signature T4 (Thyroxine), 0.9 0.9 - 1.7 11/22/2020 [facility] Free, P ng/dL 11:49 AM FIELD RECORDER Comment: Biotin has been identified by the capri enriquez as a potential interfering substance. ??Higher concentr ations of biotin may be found in multivitamins, hair/nail supple ments, and workout supplements. ??If the result does not [facility] clinical observations, repeat testing after patient refrains fr om the use of supplements for at least 12 hours. Specimen Anatomical Collection Method Collection Time Receive d Time (Source) Location / / Volume Laterality Blood (Blood, 11/22/2020 10:57 11/22/2020 Venous) AM FIELD RECORDER 10:58 AM FIELD RECORDER Shayla Alford D.O. LAB BLOOD ADD-ON Performing Organization Address City/State/ZIP Code Phon e Number [facility] [address] [place] [address] [place] [address] System in [place] [address] (ABNORMAL) T3 (Triiodothyronine), Free (11/22/2020 10:57 AM FIELD RECORDER) P athologist Signature T3 2.4 (L) 2.8 - 4.4 11/23/2020 [facility] (Triiodothyron pg/mL 9:17 AM FIELD RECORDER ine), Free, S Specimen Anatomical Collection Method Collection Time Receive d Time (Source) Location / / Volume Laterality Blood (Blood, 11/22/2020 10:57 11/23/2020 7:57 Venous) AM FIELD RECORDER AM FIELD RECORDER Shayla Alford D.O. LAB BLOOD ADD-ON Performing Organization Address City/State/ZIP Code Phon e Number [facility] [address] [place], [place] [address] [place] [address] [facility] [place] [address] Laboratory Medicine and Pathology [address] [place] (ABNORMAL) S-TSH (Thyroid-Stimulating Hormone - Sensitive) (11/22/2020 10:57 AM FIELD RECORDER) athologist Signature TSH, Sensitive 14.0 (H) 0.3 - 4.2 11/22/2020 [facility] mIU/L 11:49 AM FIELD RECORDER Specimen Anatomical Collection Method Collection Time Receive d Time (Source) Location / / Volume Laterality Blood (Blood, 11/22/2020 10:57 11/22/2020 Venous) AM FIELD RECORDER 10:58 AM FIELD RECORDER Shayla Alford D.O. LAB BLOOD ADD-ON Performing Organization Address City/State/ZIP Code Phon e Number [facility]- [address] [place] [address] [facility] [place] [address] System in [place] [address] documented in this encounter Visit Diagnoses Diagnosis Diabetes Mellitus Type 2 Hyperglycemia ( HCC) - Primary Failure Heart (HCC) Hypertension Essential Primary Pancreatitis Chronic Recurrent (HCC) Hypothyroidism Screening Cancer Colon documented in this encounter Additional Health Concerns Assessment Noted Time PHQ-9 Depression Total Score: 18 04/28/2018 11:27 AM C DT documented as of this encounter Care Teams Char Conveyor Tender Cellar Relationship Specialty Start Date End Date Shayla Alford D.O. PCP - General Internal Medicine 05/22/[address]199 [place] [address] documented as of this encounter
--- OUTSIDE RECORDS SUMMARY | 2022-05-27 11:59 | XMS_ITS | Encounter Summary ---
:1945 Author Organization [facility] Address [address] [place] [address] Care Team Providers Name Role Phone Shayla Alford D.O. Primary Care Provider [phone] Reason for Referral Outpatient (Routine) - Closed Specialty Diagnoses / Procedures Referred By Contact Refer red To Contact Diagnoses Chronic Systolic (Congestive) Heart Failure (HCC) Manuel Evans M.D. [facility] Procedures Echo Transthoracic (TTE) [address] [place] [address] Referral ID Status Reason Start Date Expiration Date Visits Requ ested Visits Authorized [id number] Closed 06/06/2020 06/06/2021 1 1 TAMPER Reason for Visit Outpatient (Routine) - Closed Specialty Diagnoses / Procedures Referred By Contact Refer red To Contact Diagnoses Chronic Systolic (Congestive) Heart Failure (HCC) Manuel Evans M.D. [facility] Procedures Echo Transthoracic (TTE) [address] [place], [place] [address] Referral ID Status Reason Start Date Expiration Date Visits Requ ested Visits Authorized [id number] Closed 06/06/2020 06/06/2021 1 1 Encounter Details Date Type Department Care Team Description 11/17/2020 Hospital Encounter Department of Cristina Chronic Systolic Cardiovascular Manuel Barber M.D. (Congestive) Heart Diseases in [place] [address] Failure (HCC) [place], [place] [address] [address] [place], [place] [phone] (Work) [phone] Social History Tobacco Use Types Packs/Day Years [...] do you attend moravian or Never 2021 hindu services? Do you [...] have completed or the highest Martin, MEd, INDUSTRIAL MAINTENANCE TECHNICIAN, CAYDEN) degree you have received? Sex [...] by mouth tabletIndications: daily. 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), Diabetes Mellitus Type 2 ([facility]), Hypertension Essential Primary levothyroxine (SYNTHROID, [...] Systolic Res ults for this DOPPLER COLOR FORM TAMPER (Congestive) Heart procedur e are in Failure (HCC) the results section. documented in this encounter Results (TTE) 2D ECHO DOPPLER COLOR (11/17/2020 11:23 AM FORM TAMPER) [facility] Method Time Signature Ejection Fraction 50 MC [...] / / Volume Laterality 11/17/2020 9:48 AM FORM TAMPER Impressions 11/17/2020 2:48 PM FORM TAMPER Intravenous Lumason ultrasound enhancement agent(s) administered to [...] effusion. For the complete report, see the [employer] Documents. Narrative 11/17/2020 2:48 PM FORM TAMPER For the complete report, see the [employer] Documents. Final Impressions 1. Mild-moderately enlarged left [...] sulfur hexafluoride microspheres Given 11/17/2020 11:53 AM FORM TAMPER 1 .6 mL injection (LUMASON) intravenous, As needed, contrast, Starting on Fri11/17/20 at 1153, See protocol. Reconstitute each 25 mg vial with 5 mL NS. documented in this encounter Additional Health Concerns Assessment Noted Time PHQ-9 Depression Total Score: 18 04/28/2018 11:27 AM C DT documented as of this encounter Care Teams Grazing Examiner Relationship Specialty Start Date End Date Shayla Alford D.O. PCP - General Internal Medicine 05/22/[address] [phone] documented as of this encounter
--- OUTSIDE RECORDS SUMMARY | 2022-05-27 12:00 | XMS_ITS | Encounter Summary ---
:1945 Author Organization [facility] Address [address] [place] [address] Care Team Providers Name Role Phone Shayla Alford.Sabrina Primary Care Provider [phone] Reason for Visit Reason Comments COVID Inquiry Encounter Details Date Type Department Care Team Description 09/13/2020 Clinical Communication Department of Internal Andrei Dejesus COVID Inquiry Medicine in [facility] Shayla, D .OMauro [place] [address] [place] [phone] Social History Tobacco Use [...] do you attend orthodoxy or Never 2021 latter day services? Do [...] completed or the highest Martin, MEd, MARINE ENGINEERING TECHNICIANS, CAYDEN) degree you have received? Sex Assigned [...] sending patient for testing in [facility] or [facility], route encounter to the correct testing pool. F NUCLEAR MEDICINE TECHNOLOGIST documented in this encounter Plan of Treatment Not on filedocumented as of this encounter Visit Diagnoses Not on filedocumented in this encounter Additional Health Concerns Assessment Noted Time PHQ-9 Depression Total Score: 18 04/28/2018 11:27 AM C DT documented as of this encounter Care Teams Dried Yeast Supervisor Relationship Specialty Start Date End Date Shayla Alford D.O. PCP - General Internal Medicine 05/22/[address] [phone] documented as of this encounter
--- OUTSIDE RECORDS SUMMARY | 2022-05-27 12:00 | XMS_ITS | Encounter Summary ---
:1945 Author Organization [facility] Address [address] [place] [address] Care Team Providers Name Role Phone Shayla Alfodr D.O. Primary Care Provider [phone] Reason for Visit Reason Comments Care Coordination Monthly Billing- 2019 Encounter Details Date Type Department Care Team Description 09/28/2020 Patient Outreach Department of Westley Sommer Employment Training Specialist rdination Internal Medicine in nShayla D .OMauro (Monthly Billing- Aug. [place], [place] [address]) [address] [place] [phone] Social History Tobacco Use Types Packs/Day Years [...] do you attend muslim or Never 2021 restorationism services? Do you [...] have completed or the highest Martin, MEd, MOTION STUDY ENGINEER, CAYDEN) degree you have received? Sex [...] documented as of this encounter Care Teams Aircraft Sheet Metal Mechanic Relationship Specialty Start Date End Date Shayla Alford D.O. PCP - General Internal Medicine 05/22/20 [address] [place] [phone] documented as of this encounter
--- OUTSIDE RECORDS SUMMARY | 2022-05-27 12:00 | XMS_ITS | Encounter Summary ---
:1945 Author Organization [facility] Address [address] [place] [address] Care Team Providers Name Role Phone Shayla Alford D.O. Primary Care Provider [phone] Encounter Details Date Type Department Care Team Description 08/18/2020 Clinical Communication Department of Ronda Fernandez Internal Medicine in [place] [address] [facility] [address] [place] [phone] Social History Tobacco Use Types Packs/Day Years [...] do you attend islam or Never 2021 orthodox services? Do you [...] have completed or the highest Martin, MEd, TUBING OILER, CAYDEN) degree you have received? Sex Assigned at Date Recorded Male 05/21/2018 2:34 PM CDT documented as of this encounter Miscellaneous Notes Telephone Encounter - Ronda Fernandez RMauroN. - 08/18/2020 8:33 AM SENIOR HEALTH CONSULTANT Please schedule a nurse appointment with this patient as outlined below. Grounds Supervisor (calendar name): MIGUEL ANGEL MCINTOSH CARE COORD NURSE Date: 09/01/20 Time: 9:30 a.m. Location: Patient's home/Virtual visit Appointment type: Virtual: Video Anyplace Extended- 60 minutes Group Segment Consultant needed: No Please enter into notes section: Please add my name Ronda Villagomez, as the person will be completing the virtual visit. OR HEALTH CONSULTANT documented in this encounter Plan of Treatment Not on filedocumented as of this encounter Visit Diagnoses Not on filedocumented in this encounter Additional Health Concerns Assessment Noted Time PHQ-9 Depression Total Score: 18 04/28/2018 11:27 AM C DT documented as of this encounter Care Teams Shuttle Route Vehicle Operator Relationship Specialty Start Date End Date Shayla Alford D.O. PCP - General Internal Medicine 05/22/[address] [phone] documented as of this encounter
--- OUTSIDE RECORDS SUMMARY | 2022-05-27 12:00 | XMS_ITS | Encounter Summary ---
:1945 Author Organization [facility] Address [address] [place] [address] Care Team Providers Name Role Phone Shayla Alford D.O. Primary Care Provider [phone] Reason for Visit Reason Comments Pancreas Medication Question Encounter Details Date Type Department Care Team Description 10/16/2020 Clinical Division of Parminder Pancreas; Communication Gastroenterology in [place], [place] M.D. Question [address] [facility] [address] [place] [address] [place] [address] Social History Tobacco Use Types Packs/Day Years [...] do you attend adventist or Never 2021 mu-ism services? Do you [...] have completed or the highest Martin, MEd, METALSMITH, CAYDEN) degree you have received? Sex Assigned [...] nursing clinical judgement and provider Dr. Zurita EL ORDINARY SEAMAN Telephone Encounter - Daphney Batista R.N. - 11/03/2020 8:55 AM VESSEL ORDINARY SEAMAN SUBJECTIVE CHIEF COMPLAINT / REASON FOR CALL [...] nursing clinical judgement and provider Dr. Zurita EL ORDINARY SEAMAN Telephone Encounter - Daphney Batista RShama. - 10/20/2020 10:44 AM VESSEL ORDINARY SEAMAN SUBJECTIVE CHIEF COMPLAINT / REASON FOR CALL [...] following references were used: nursing clinical judgement EL ORDINARY SEAMAN documented in this encounter Plan of Treatment Not on filedocumented as of this encounter Visit Diagnoses Not on filedocumented in this encounter Additional Health Concerns Assessment Noted Time PHQ-9 Depression Total Score: 18 04/28/2018 11:27 AM C DT documented as of this encounter Care Teams Electro Mechanical Designer Relationship Specialty Start Date End Date Shayla Alford D.O. PCP - General Internal Medicine 05/22/20 [address] [place] [phone] documented as of this encounter
--- OUTSIDE RECORDS SUMMARY | 2022-05-27 12:00 | XMS_ITS | Encounter Summary ---
:1945 Author Organization [facility] Address [address] [place] [address] Care Team Providers Name Role Phone Shayla Alford D.O. Primary Care Provider [phone] Reason for Visit Reason Comments Care Coordination Monthly Billing- August 18 Encounter Details Date Type Department Care Team Description 08/28/2020 Patient Outreach Department of Westley Sommer Dado Operator rdination Internal Medicine in n[place] D .OMauro (Monthly Billing- [place], [place] [address] August 2020) [address] [place] [phone] Social History Tobacco Use Types Packs/Day Years [...] do you attend judaism or Never 2021 latter day services? Do [...] have completed or the highest Martin, MEd, GLOST KILN PLACER, CAYDEN) degree you have received? Sex Assigned [...] as of this encounter Care Teams Client Account Manager Relationship Specialty Start Date End Date Shayla Alford D.O. PCP - General Internal Medicine 05/22/[address] [phone] documented as of this encounter
--- OUTSIDE RECORDS SUMMARY | 2022-05-27 12:00 | XMS_ITS | Encounter Summary ---
:1945 Author Organization [facility] Address [address] [place] [address] Care Team Providers Name Role Phone Shayla Alford D.O. Primary Care Provider [phone] Reason for Referral Physical Therapy (Routine) - Closed Specialty Diagnoses / Procedures Referred By Contact Refer red To Contact Diagnoses Unsteadiness Gait Disorder Non Orthopedic Yen Buchanan M.D., M.B.A. [address] [place] [address] Referral ID Status Reason Start Date Expiration Date Visits V isits Requested Authorized [id number] Closed Service not 09/13/2020 09/13/2021 1 1 available at any [facility] site INE TACK PULLER Reason for Visit Reason Comments Palpitations states [...] Expiration Date Visits Requ ested Visits Authorized [id number] Closed 09/13/2020 09/13/2021 1 1 Encounter Details Date Type Department Care Team Description 09/13/2020 Office Visit Department of Internal Kalpesh Buchanan re Heart (HCC) (Primary Dx); Medicine in [place] M.D., Uns teadiness Gait Disorder Non Orthopedic; [facility].B.AMauro Beat Premature Ventricular [address] [place] [phone] Social History Tobacco Use Types Packs/Day Years [...] do you attend congregation or Never 2021 roman catholic services? Do [...] have completed or the highest Martin, MEd, ATTORNEY LAW CLERK, CAYDEN) degree you have received? Sex Assigned at Date Recorded Male 05/21/2018 2:34 PM CDT documented as of this encounter Last Filed Vital Signs Vital Sign Reading Time Taken Comments Blood Pressure 136/66 09/13/2020 10:44 AM MACHINE TACK PULLER Pulse 51 09/13/2020 10:44 AM MACHINE TACK PULLER Temperature 36.8 ??C (98.2 ??F) 09/13/2020 10:44 AM MACHINE TACK PULLER Respiratory Rate 16 09/13/2020 10:44 AM MACHINE TACK PULLER Oxygen Saturation - - Inhaled Oxygen Concentration - - Weight 97.7 kg (215 lb 6.2 oz) 09/13/2020 10:44 AM MACHINE TACK PULLER Height 189 cm (6' 2.41) 09/13/2020 10:44 AM MACHINE TACK PULLER Body Mass Index 27.35 09/13/2020 10:44 AM MACHINE TACK PULLER documented in this encounter Progress Notes Yen Buchanan M.D., M.B.A. - 09/13/2020 11:00 AM CST INTERNAL MEDICINE Progress note DATE OF EXAM 09/13/2020 LOCATION OF EXAM [facility] CHIEF COMPLAINT/REASON FOR VISIT Chief Complaint Patient [...] Master's degree (e.g., MA, MS, Martin, MEd, ATTORNEY LAW CLERK, CAYDEN) Occupational History Employer: RETIRED Social Needs [...] More than three times a week Attends roman catholic service: Never Active member of club or [...] face symmetrical, pupils reactive to light, negative Jbphh-Hallpike, no nystagmus NECK: supple, no tracheal shift [...] with Dr Reid. I discussed with Dr. Reid who kindly agreed to follow-up with patient on his concerns. Orders: - External referral PT (non-[place]) - Vestibular balance evaluation; Future; Expected date: [...] spent on counselling. Yen Buchanan M.D., M.B.A. INE TACK PULLER documented in this encounter Miscellaneous Notes Assessment [...] that he will follow with Dr Reid. INE TACK PULLER documented in this encounter Plan of Treatment Not on filedocumented as of this encounter Results Magnesium (10/19/2020 9:00 AM MACHINE TACK PULLER) P athologist Signature Magnesium, P 1.8 1.7 - 2.3 10/19/2020 [facility] mg/dL 10:08 AM MACHINE TACK PULLER Specimen Anatomical Collection Method Collection Time Receive d Time (Source) Location / / Volume Laterality Blood (Blood, 10/19/2020 9:00 AM 10/19/19 9:03 Venous) MACHINE TACK PULLER AM MACHINE TACK PULLER Yen Buchanan M.D., M.B.A. LAB BLOOD ADD-ON Performing Organization Address City/State/ZIP Code Phon e Number [facility]- [address] [place] [address] [facility] [place] [address] System in [place] [address] documented in this encounter Visit Diagnoses Diagnosis Failure Heart (HCC) - Primary Unsteadiness Gait Disorder Non Orthopedi c Beat Premature Ventricular documented in this encounter Additional Health Concerns Assessment Noted Time PHQ-9 Depression Total Score: 18 04/28/2018 11:27 AM C DT documented as of this encounter Care Teams Superintendent Oil Field Drilling Relationship Specialty Start Date End Date Shayla Alford D.O. PCP - General Internal Medicine 05/22/[address] [place] [phone] documented as of this encounter
--- OUTSIDE RECORDS SUMMARY | 2022-05-27 12:00 | XMS_ITS | Encounter Summary ---
:1945 Author Organization [facility] Address [address] [place] [address] Care Team Providers Name Role Phone Shayla Alford D.O. Primary Care Provider [phone] Encounter Details Date Type Department Care Team Description 10/12/2020 Hospital Encounter Department of [place] Chroni c Systolic (Congestive) Heart Failure (HCC); Laboratory Medicine n, Gianna Mcguire Anemia In Chronic Kidney Disease; in [place], [address] Elevated Liver Enzyme Abnormal, Aspartate Transaminase, Serum Glutamic-Oxaloacetic Transaminase, Alanine Transaminase [facility] [address] [place] [phone] Social History Tobacco Use Types Packs/Day Years [...] do you attend yazidi or Never 2021 buddhist services? Do you [...] have completed or the highest Martin, MEd, DESIGNER, CAYDEN) degree you have received? Sex [...] by mouth tabletIndications: daily. Atherosclerotic Heart Disease [place] Coronary Artery With [...] Enz yme Results for this PANEL, S SECONDS INSPECTOR Abnormal, Aspartate procedur e are in Transaminase, Serum the resu lts Glutamic-Oxaloacetic section . Transaminase, Alanine Transaminase CBC WITH Routine 10/12/2020 9:15 AM Anemia In Chronic Resu lts for this DIFFERENTIAL, B SECONDS INSPECTOR Kidney Disease procedure are in the results section. BASIC METABOLIC Routine 10/12/2020 9:15 AM Chronic Systolic Re sults for this PANEL, S/P SECONDS INSPECTOR (Congestive) Heart procedure are in Failure (HCC) the results section. documented in this encounter Results (ABNORMAL) Hepatic Function Panel (10/12/2020 9:15 AM SECONDS INSPECTOR) [facility] Method Time Signature Bilirubin, Total, P 0.5 <=1.2 10/12/2020 [facility] mg/dL 10:13 AM SECONDS INSPECTOR Bilirubin, Direct, P <0.2 0.0 - 0.3 10/12/2020 [facility] mg/dL 10:19 AM SECONDS INSPECTOR Aspartate 32 8 - 48 10/12/2020 [facility] Aminotransferase U/L 10:13 AM SECONDS INSPECTOR (AST), P Alanine 46 7 - 55 10/12/2020 [facility] Aminotransferase U/L 10:13 AM SECONDS INSPECTOR (ALT), P Alkaline 135 (H) 40 - 129 10/12/2020 [facility] Phosphatase, P U/L 10:13 AM SECONDS INSPECTOR Albumin, P 3.9 3.5 - 5.0 10/12/2020 [place] g/dL 10:13 AM SECONDS INSPECTOR Protein, Total, P 6.6 6.3 - 7.9 10/12/2020 [facility] g/dL 10:13 AM SECONDS INSPECTOR Specimen Anatomical Collection Method Collection Time Receive d Time (Source) Location / / Volume Laterality Blood (Blood, 10/12/2020 9:15 AM 10/12/19 9:27 Venous) SECONDS INSPECTOR AM SECONDS INSPECTOR Shayla Alford D.O. LAB BLOOD ADD-ON Performing Organization Address City/State/ZIP Code Phon e Number [facility]- [address] [place] [address] [facility] [place] [address] System in [place] [address] (ABNORMAL) CBC with Differential, Blood (10/12/2020 9:15 AM SECONDS INSPECTOR) [facility] gist Method Time Signature Hemoglobin 10.0 (L) 13.2 - 10/12/2020 [facility] 16.6 g/dL 9:31 AM SECONDS INSPECTOR Hematocrit 30.9 (L) 38.3 - 10/12/2020 [facility] 48.6 % 9:31 AM SECONDS INSPECTOR Erythrocytes 3.29 (L) 4.35 - 10/12/2020 [facility] 5.65 9:31 AM SECONDS INSPECTOR x10(12)/L MCV 93.9 78.2 - 10/12/2020 [place] 97.9 fL 9:31 AM SECONDS INSPECTOR RBC Distrib Width 12.6 11.8 - 10/12/2020 [facility] 14.5 % 9:31 AM SECONDS INSPECTOR Platelet Count 176 135 - 317 10/12/2020 [place] x10(9)/L 9:31 AM SECONDS INSPECTOR Leukocytes 6.1 3.4 - 9.6 10/12/2020 [facility] x10(9)/L 9:31 AM SECONDS INSPECTOR Neutrophils 4.36 1.56 - 10/12/2020 [facility] 6.45 9:31 AM SECONDS INSPECTOR x10(9)/L Lymphocytes 0.93 (L) 0.95 - 10/12/2020 [facility] 3.07 9:31 AM SECONDS INSPECTOR x10(9)/L Monocytes 0.42 0.26 - 10/12/2020 [facility] 0.81 9:31 AM SECONDS INSPECTOR x10(9)/L Eosinophils 0.28 0.03 - 10/12/2020 [facility] 0.48 9:31 AM SECONDS INSPECTOR x10(9)/L Basophils 0.06 0.01 - 10/12/2020 [facility] 0.08 9:31 AM SECONDS INSPECTOR x10(9)/L Specimen Anatomical Collection Method Collection Time Receive d Time (Source) Location / / Volume Laterality Blood (Blood, 10/12/2020 9:15 AM 10/12/19 9:27 Venous) SECONDS INSPECTOR AM SECONDS INSPECTOR Shayla Alford D.O. LAB BLOOD ADD-ON Performing Organization Address City/State/ZIP Code Phon e Number [facility]- [address] [place] [address] [place] [address] System in [place] [address] (ABNORMAL) Basic Metabolic Panel (10/12/2020 9:15 AM SECONDS INSPECTOR) Analysis Performed At Patho logist Time Signature Potassium, P 4.4 3.6 - 5.2 10/12/2020 [facility] mmol/L 10:13 AM SECONDS INSPECTOR Sodium, P 137 135 - 145 10/12/2020 [facility] mmol/L 10:13 AM SECONDS INSPECTOR Chloride, P 103 98 - 107 10/12/2020 [place] mmol/L 10:13 AM SECONDS INSPECTOR Bicarbonate, P 26 22 - 29 10/12/2020 [facility] mmol/L 10:13 AM SECONDS INSPECTOR Anion Gap, P 8 7 - 15 10/12/2020 [facility] 10:13 AM SECONDS INSPECTOR BUN (Blood Urea 41 (H) 8 - 24 10/12/2020 [facility] Nitrogen), P mg/dL 10:13 AM SECONDS INSPECTOR Creatinine 1.70 (H) 0.74 - 10/12/2020 [place] 1.35 mg/dL 10:13 AM SECONDS INSPECTOR eGFR-Black/Afri 44 (L) >=60 10/12/2020 [facility] can [place] mL/min/BSA 10:13 AM SECONDS INSPECTOR Comment: ----ADDITIONAL INFORMATION---- Estimated GFR calculated using the 2009 CKD_EPI creatinine equation. eGFR Non-Black/ 38 (L) >=60 mL/min/BSA 10/12/2020 10:13 AM SECONDS INSPECTOR [facility] Comment: ----ADDITIONAL INFORMATION---- Estimated GFR calculated using the 2009 CKD_EPI creatinine equation. Calcium, Total, P 8.8 8.8 - 10.2 mg/dL 10/12/2020 10:1 3 AM SECONDS INSPECTOR OWAT Glucose, P 305 (H) 70 - 140 mg/dL 10/12/2020 10:13 AM SECONDS INSPECTOR OWAT Specimen Anatomical Collection Method Collection Time Receive d Time (Source) Location / / Volume Laterality Blood (Blood, 10/12/2020 9:15 AM 10/12/19 9:27 Venous) SECONDS INSPECTOR AM SECONDS INSPECTOR Shayla Alford D.O. LAB BLOOD ADD-ON Performing Organization Address City/State/ZIP Code Phon e Number [facility]- [address] [place] [address] [place] [address] System in [place] [address] [facility] documented [...] documented as of this encounter Care Teams Trust Manager Relationship Specialty Start Date End Date Shayla Alford D.O. PCP - General Internal Medicine 05/22/202199 [place] [phone] documented as of this encounter
--- OUTSIDE RECORDS SUMMARY | 2022-05-27 12:00 | XMS_ITS | Encounter Summary ---
:[address] [facility] Address [address] [place] [address] Care Team Providers Name Role Phone Shayla Alford D.O. Primary Care Provider [phone] Encounter Details Date Type Department Care Team Description 10/19/2020 Hospital Encounter [facility] of [facility], [facility] Heart ([facility]) Laboratory Medicine laron Barlow M.D., M.B.A. [place] [address] [facility] [place] [phone] Social History Tobacco Use [...] do you attend mu-ism or Never 2021 mandaen services? Do you belong to any clubs or No 10/09/2021 organizations such as mu-ism groups, unions, [employer] or athletic groups, or school groups? How [...] completed or the highest Martin, MEd, PIPE SUPERVISOR, CAYDEN) degree you have received? Sex [...] by mouth tabletIndications: daily. 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 documented in this encounter Results Magnesium (10/19/2020 9:00 AM TRANSFER CAR OPERATOR) P athologist Signature Magnesium, P 1.8 1.7 - 2.3 10/19/2020 [facility] mg/dL 10:08 AM TRANSFER CAR OPERATOR Specimen Anatomical Collection Method Collection Time Receive d Time (Source) Location / / Volume Laterality Blood (Blood, 10/19/2020 9:00 AM 10/19/19 9:03 Venous) TRANSFER CAR OPERATOR AM TRANSFER CAR OPERATOR Yen Buchanan M.D., M.B.A. LAB BLOOD ADD-ON Performing Organization Address City/State/ZIP Code Phon e Number [facility] [address] [place] [address] [facility] [place] [address] System in [place] [address] documented in this encounter Visit Diagnoses Diagnosis Failure Heart (HCC) documented in this encounter Additional Health Concerns Assessment Noted Time PHQ-9 Depression Total Score: 18 04/28/2018 11:27 AM C DT documented as of this encounter Care Teams Piano Professor Relationship Specialty Start Date End Date Bakkali-Derksen, Salwa, D.O. PCP - General Internal Medicine 05/22/202199 [address] [facility] [place] [phone] documented as of this encounter
--- OUTSIDE RECORDS SUMMARY | 2022-05-27 12:00 | XMS_ITS | Encounter Summary ---
:1945 Author Organization [facility] Address [address] [place] [address] Care Team Providers Name Role Phone Shayla Alford D.O. Primary Care Provider [phone] Reason for Visit MRI/CAT/PET Scan (Routine) - Closed Specialty Diagnoses / Procedures Referred By Contact Refer red To Contact Radiology Diagnoses Unsteadiness Gait Disorder Non Orthopedic Yen Buchanan M.D., [facility] [place] [facility] Procedures MR Brain without IV Contrast MR Brain without and with IV Contrast MR Brain without IV Contrast OK MRI BRAIN WO CNTRST HC MRI BRAIN WO CNTRST OK MRI BRAIN WO/W CNTRST OK MRI BRAIN WO CNTRST M.B.A. [address] [place] [address] Referral ID Status Reason Start Date Expiration Date Visits Requ ested Visits Authorized [id number] Closed 09/13/2020 09/13/2021 1 1 Encounter Details Date Type Department Care Team Description 10/19/2020 Hospital Encounter Department of [place], Unsteadi ness Gait Radiology in [place] Non [place], [place] Pato, M.B.A. Orthopedic [address] [facility] [address] [place], [place] [phone] Social History Tobacco Use Types Packs/Day [...] do you attend mormon or Never 2021 protestant services? Do you [...] have completed or the highest Martin, MEd, BROOM BUNDLER, CAYDEN) degree you have received? Sex Assigned [...] by mouth tabletIndications: daily. 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 documented in this encounter Results MR Brain without IV Contrast (10/19/2020 10:13 AM WOOD HEEL BACK LINER) Anatomical Region Laterality Modality Head, Brain, Neuroradiology RST LOS, Neuroradiology ARZ N/A Magnetic Resonance LOS, Neuroradiology FLA LOS Specimen (Source) Anatomical Collection Method Collection Time Re ceived Time Location / / Volume Laterality 10/19/2020 12:52 PM WOOD HEEL BACK LINER Impressions 10/19/2020 1:03 PM WOOD HEEL BACK LINER 1. No acute infarct. No new finding to explain clinical presentation. 2. New right ostiomeatal complex pattern sinus obstruction with fluid in the right frontal sinus, anterior ethmoid ai r cells right maxillary sinus. Direct visualization suggested to exclude obstr ucting lesion. Narrative 10/19/2020 1:03 PM WOOD HEEL BACK LINER EXAM: MR BRAIN WITHOUT IV CONTRAST COMPARISON: 09/17/2017 FINDINGS: Mild/moderate generalized supr atentorial and infratentorial volume loss with ex vacuo dilation of ventricle s. 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 Pos toperative change both globes. Chronic [...] ventricle s. Patchy T2 hyperintensities compatible with pyqm-tg-enkguozo leukoaraiosis. Pos toperative change both globes. Chronic [...] documented as of this encounter Care Teams Veneer Jointer Operator Relationship Specialty Start Date End Date Shayla Alford D.O. PCP - General Internal Medicine 05/22/[address] [address] documented as of this encounter
--- OUTSIDE RECORDS SUMMARY | 2022-05-27 12:00 | XMS_ITS | Encounter Summary ---
:1945 Author Organization [facility] Address [address] [place] [address] Care Team Providers Name Role Phone Shayla Alford D.O. Primary Care Provider [phone] Reason for Visit Reason Comments COVID Inquiry Encounter Details Date Type Department Care Team Description 08/21/2020 Clinical Communication Division of General Prescheduli ng COVID Inquiry Internal Medicine in [place], [place] [address] [place] [address] Social History Tobacco Use Types Packs/Day Years [...] do you attend faith or Never 2021 jehovah's witness services? Do [...] completed or the highest Martin, MEd, SALES AGENT CASUALTY INSURANCE, CAYDEN) degree you have received? Sex Assigned at Date Recorded Male 05/21/2018 2:34 PM CDT documented as of this encounter Miscellaneous Notes Telephone Encounter - Meera Lanier - 08/21/2020 10:39 AM CST COVID DOS/PASS Screening What is the patient requesting?: COVID-19 Testing Only (End screening - follow local process) Plan: Endpoint recommendation: Testing indicated, sent patient to [place] located at [address] [place] [address]. The entrance is on the north side of the building. You must call [phone] for an appointment time.Testing hours are Daily [...] sending patient for testing in [facility] or [facility], an email notification is required. E DRILL OPERATOR documented in this encounter Plan of Treatment Not on filedocumented as of this encounter Visit Diagnoses Not on filedocumented in this encounter Additional Health Concerns Assessment Noted Time PHQ-9 Depression Total Score: 18 04/28/2018 11:27 AM C DT documented as of this encounter Care Teams Stock Broker Relationship Specialty Start Date End Date Shayla Alford D.O. PCP - General Internal Medicine [facility] [address] documented as of this encounter
--- OUTSIDE RECORDS SUMMARY | 2022-05-27 12:00 | XMS_ITS | Encounter Summary ---
:[address] [facility] Address [address] [place] [address] Care Team Providers Name Role Phone Shayla Alford D.O. Primary Care Provider [phone] Reason for Visit Reason Comments Care Coordination Graduation Encounter Details Date Type Department Care Team Description 09/01/2020 Patient Outreach Department of Ronda Fernandez Internal Medicine A, R.N. (Graduation) in [place] [address] [address] [place], [place] [address] [address] [place], [place] [phone] (Work) [phone] Social History Tobacco Use Types Packs/Day Years [...] do you attend presybeterian or Never 2021 jewish services? Do you [...] have completed or the highest Martin, MEd, INTERIOR SYSTEMS CARPENTER, CAYDEN) degree you have received? Sex Assigned [...] Patient now has a nurse (Zoya) form [facility] that is calling him to help [...] yes The following references were used: none AISER documented in this encounter Plan of Treatment Not on filedocumented as of this encounter Visit Diagnoses Not on filedocumented in this encounter Additional Health Concerns Assessment Noted Time PHQ-9 Depression Total Score: 18 04/28/2018 11:27 AM C DT documented as of this encounter Care Teams Dormitory Supervisor Relationship Specialty Start Date End Date Shayla Alford D.O. PCP - General Internal Medicine 05/22/20 [address] [place] [address] documented as of this encounter
--- OUTSIDE RECORDS SUMMARY | 2022-05-27 12:00 | XMS_ITS | Encounter Summary ---
:1945 Author Organization [facility] Address [address] [place] [address] Care Team Providers Name Role Phone Shayla Alford D.O. Primary Care Provider [phone] Encounter Details Date Type Department Care Team Description 10/12/2020 Hospital Encounter Department of [place] Diabet es Mellitus Laboratory Medicine n, Gianna Mcguire Type 2 Without in [place], [address] Complication (H CC) [place] [address] [place] [address] Social History Tobacco Use [...] do you attend quaker or Never 2021 protestant services? Do you [...] have completed or the highest Martin, MEd, ORE PUNCHER, CAYDEN) degree you have received? Sex [...] by mouth tabletIndications: daily. 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 documented in this encounter Results (ABNORMAL) Hemoglobin A1c (10/12/2020 9:15 AM SHIRT IRONER SUPERVISOR) P athologist Signature Hemoglobin A1c, 8.4 (H) 4.2 - 5.6 10/12/2020 [facility] B % 9:44 AM SHIRT IRONER SUPERVISOR Comment: Hemoglobin A1c values greater than or eq ual to 6.5 percent are diagnostic for diabetes mellitus. ?? Diagnosis should be confirmed by repeat testing. ??In diabet ic patients, HbA1c goals should be discussed with healthcar e provider. Specimen Anatomical Collection Method Collection Time Receive d Time (Source) Location / / Volume Laterality Blood (Blood, 10/12/2020 9:15 AM 10/12/19 9:27 Venous) SHIRT IRONER SUPERVISOR AM SHIRT IRONER SUPERVISOR Shayla Alford D.O. LAB BLOOD ADD-ON Performing Organization Address City/State/ZIP Code Phon e Number [facility]- [address] [place] [address] [place] [address] System in [place] [address] documented in this encounter Visit Diagnoses Diagnosis Diabetes Mellitus Type 2 Without Complic ation (HCC) documented in this encounter Additional Health Concerns Assessment Noted Time PHQ-9 Depression Total Score: 18 04/28/2018 11:27 AM C DT documented as of this encounter Care Teams Planting Supervisor Relationship Specialty Start Date End Date Shayla Alford D.O. PCP - General Internal Medicine 05/22/[address] [phone] documented as of this encounter
--- OUTSIDE RECORDS SUMMARY | 2022-05-27 12:00 | XMS_ITS | Encounter Summary ---
:1945 Author Organization [facility] Address [address] [place] [address] Care Team Providers Name Role Phone Shayla Alford D.O. Primary Care Provider [phone] Reason for Visit Reason Comments Care Coordination Patient call in Encounter Details Date Type Department Care Team Description 08/28/2020 Patient Outreach [facility] A, R.N. (Patient call in ) in [place], [facility] [address] [place], [place] [address] [address] [place], [place] [phone] (Work) [phone] Social History Tobacco Use Types Packs/Day Years [...] do you attend catholic or Never 2021 nondenominational services? Do you [...] have completed or the highest Martin, MEd, CONTRACTOR BROOMCORN THRESHING, CAYDEN) degree you have received? Sex Assigned [...] will have his present to assist him. M ROOM ATTENDANT documented in this encounter Plan of Treatment Not on filedocumented as of this encounter Visit Diagnoses Not on filedocumented in this encounter Additional Health Concerns Assessment Noted Time PHQ-9 Depression Total Score: 18 04/28/2018 11:27 AM C DT documented as of this encounter Care Teams Enamel Sprayer Relationship Specialty Start Date End Date Shayla Alford D.O. PCP - General Internal Medicine 05/22/[address] [place] [address] documented as of this encounter
--- OUTSIDE RECORDS SUMMARY | 2022-05-27 12:00 | XMS_ITS | Encounter Summary ---
:1945 Author Organization [facility] Address [address] [place] [address] Care Team Providers Name Role Phone Shayla Alford D.O. Primary Care Provider [phone] Reason for Referral Outpatient (Routine) - Closed Specialty Diagnoses / Procedures Referred By Contact Refer red To Contact Community Internal Diagnoses Failure Heart (HCC) Hypertension Essential Primary ARMAAN Alford [facility] Tulio Mcguire [address] [place] [phone] Referral ID Status Reason Start Date Expiration Date Visits Requ ested Visits Authorized [id number] Closed 10/12/2020 10/12/2021 1 1 Scheduling Instructions Vitals recheck BP and weight , please in form me if BP >150 systolic and if gained more than 5 pounds since visit X RAY PHYSICIAN Outpatient (Routine) - Closed Specialty Diagnoses / Procedures Referred By Contact Refer red To Contact [facility] Internal ARMAAN Alford [facility] Tulio Mcguire [address] [place] [phone] Referral ID Status Reason Start Date Expiration Date Visits Requ ested Visits Authorized [id number] Closed 10/12/2020 10/12/2021 1 1 Scheduling Instructions Schedule one hour X RAY PHYSICIAN Reason for Visit Reason Comments Diabetes Mellitus Appointment Request (Routine) - Closed Specialty Diagnoses / Procedures Referred By Contact Refer red To Contact Community Internal Medicine Referral ID Status Reason Start Date Expiration Date Visits Requ ested Visits Authorized [id number] Closed 09/06/2020 09/06/2021 1 1 Encounter Details Date Type Department Care Team Description 10/12/2020 Office Visit Department of [place] Diabetes Me llitus Type 2 Hyperglycemia (HCC) (Primary Dx); Internal Medicine Shayla larry D. O. 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 Do you [...] have completed or the highest Martin, MEd, MEAL ATTENDANT, CAYDEN) degree you have received? Sex Assigned at Date Recorded Male 05/21/2018 2:34 PM CDT documented as of this encounter Last Filed Vital Signs Vital Sign Reading Time Taken Comments Blood Pressure 153/60 10/12/2020 11:59 AM X RAY PHYSICIAN Pulse 50 10/12/2020 11:43 AM X RAY PHYSICIAN Temperature 36.2 ??C (97.1 ??F) 10/12/2020 11:43 AM X RAY PHYSICIAN Respiratory Rate - - Oxygen Saturation - - Inhaled Oxygen Concentration - - Weight 99.2 kg (218 lb 11.1 oz) 10/12/2020 11:43 AM X RAY PHYSICIAN Height - - Body Mass Index 27.77 09/13/2020 10:44 AM X RAY PHYSICIAN documented in this encounter Progress Notes Shayla [...] Failure Heart (HCC) #3 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 10/20/20 1:01 PM X RAY PHYSICIAN Time spent 45 minutes This document serves as a record of services personally performed by Shayla Alford D.O.. Itwas created on their behalf by Sarai Cason, a trained emergency medical services coordinator. The creation of this recordis based on the scribe remotely listening to the visit and the provider's statements to them. This do cument has been checked and approved by the attending provider. X RAY PHYSICIAN documented in this encounter Plan of Treatment Scheduled Referrals Name Type Priority Associated Diagnoses Order S [facility] Internal Outpatient Referral Routine Ex pected: Medicine office 01/10/2021 visit (clinic) (Approximate) , Expires: 10/12/2023 [facility] Internal Outpatient Referral Routine Failure H eart (HCC) Expected: Medicine office Hypertension 10/19/2020 visit (clinic) Essential Primary (Approxi mate), Expires: 10/12/2023 documented as of this encounter Visit Diagnoses Diagnosis Diabetes Mellitus Type 2 Hyperglycemia ( HCC) - Primary Hyperlipidemia Pancreatitis Chronic Recurrent (HCC) Failure Heart (HCC) 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 PCP - General Internal Medicine 05/22/[address], [place] [address] documented as of this encounter
--- OUTSIDE RECORDS SUMMARY | 2022-05-27 12:00 | XMS_ITS | Encounter Summary ---
:1945 Author Organization [facility] Address [address] [place] [address] Care Team Providers Name Role Phone Shayla Alford D.O. Primary Care Provider [phone] Reason for Visit Reason Comments Care Coordination Monthly billing- Jun 2020 Encounter Details Date Type Department Care Team Description 07/29/2020 Patient Outreach Department of Westley Sommer Platinum And Palladium Kettle Tender rdination Internal Medicine in nShayla D .OMauro (Monthly billing- Jun [place], [place] [address] [place] [phone] Social History Tobacco Use Types Packs/Day [...] do you attend jainism or Never 2021 yarsanism services? Do you [...] have completed or the highest Martin, MEd, BRINE TANK SEPARATOR OPERATOR, CAY[place]) degree you have received? Sex [...] COVID19 Pending 08/21/2020 08/21/2020 08/22/2020 6:39 AM CUSTOMER RELATIONS ASSISTANT Assessment Noted Time PHQ-9 Depression Total Score: 18 04/28/2018 11:27 AM C DT documented as of this encounter Care Teams Strategic Solutions Consultant Relationship Specialty Start Date End Date Shayla Alford D.O. PCP - General Internal Medicine 05/22/[address] [address] documented as of this encounter
--- OUTSIDE RECORDS SUMMARY | 2022-05-27 12:00 | XMS_ITS | Encounter Summary ---
:1945 Author Organization [facility] Address [address] [place] [address] Care Team Providers Name Role Phone Shayla Alford D.O. Primary Care Provider [phone] Encounter Details Date Type Department Care Team Description 09/06/2020 Clinical Communication Department of Internal Andrei Dejesus Medicine in [place], [place], D.O Mauro [place] [address] [place] [phone] Social History Tobacco Use Types Packs/Day Years [...] do you attend yazidi or Never 2021 moravian services? Do you [...] completed or the highest Martin, MEd, MEAT SCRUBBER, CAYDEN) degree you have received? Sex Assigned [...] please advise Name of Medication (if relevant): POSTPARTUM documented in this encounter Plan of Treatment Not on filedocumented as of this encounter Visit Diagnoses Not on filedocumented in this encounter Additional Health Concerns Assessment Noted Time PHQ-9 Depression Total Score: 18 04/28/2018 11:27 AM C DT documented as of this encounter Care Teams Maintenance Worker House Trailer Relationship Specialty Start Date End Date Shayla Alford D.O. PCP - General Internal Medicine 05/22/[address] [address] documented as of this encounter
--- OUTSIDE RECORDS SUMMARY | 2022-05-27 12:00 | XMS_ITS | Encounter Summary ---
:1945 Author Organization [facility] Address [address] [place] [address] Care Team Providers Name Role Phone Shayla Alford D.O. Primary Care Provider [phone] Reason for Visit Reason Comments Care Coordination Follow Up Encounter Details Date Type Department Care Team Description 08/17/2020 [facility] Internal Medicine A, R.N. (Follow Up) in [place], [facility] [address] [place], [place] [address] [address] [place], [place] [phone] (Work) [phone] Social History Tobacco Use Types Packs/Day Years [...] do you attend scientologist or Never 2021 zoroastrian services? Do you [...] completed or the highest Martin, MEd, SUPERVISOR CHASSIS ASSEMBLY, CAYDEN) degree you have received? Sex Assigned [...] try to call him at that time. [facility] Ronda Fernandez R.N. - 08/17/2020 12:44 PM [...] provider prior to starting new medications, including wmlq-iol-fbesejc and herbal supplements. PROBLEM SOLVING -Recognize barriers [...] clinic business hours. After clinichours, call Expert blast furnace tender Line for concerning symptoms. Call . Appointment line: For Family Medicine appointments in [place] call [phone] or Internal Medicine appointments [phone]. To reschedule or cancel an appointment with your RN Continuous Improvement Consultant, call or leave a message through the switchboard at [phone]. Nurse Continuous Improvement Consultant: ALLEY Bond. You may call Friday-Friday from 7:30-4:00. Primary Care: Keep regular follow-up appointments with your Primary Care Provider. Call your Care Team during office hours or call the clinic (above numbers). You may also send a message to your Provider or Continuous Improvement Consultant/ Care Team through your Patient Online Services [...] apple juice ? cup cooked cereal ??? [place] ? cup haresh freddy ? cup sherbet [...] The patient was instructed to contact the dog day care attendant with any questions or concerns and statedunderstanding of the information provided. Disposition/Recommendation: recommended continue engagement in self-management activities Education: patient/caller able to teach back Caller agreeable to plan of care: yes The following references were used: none [facility] documented in this encounter Plan of Treatment Not on filedocumented as of this encounter Visit Diagnoses Not on filedocumented in this encounter Additional Health Concerns Assessment Noted Time PHQ-9 Depression Total Score: 18 04/28/2018 11:27 AM C DT documented as of this encounter Care Teams Production Support Developer Relationship Specialty Start Date End Date Shayla Alford D.O. PCP - General Internal Medicine 05/22/20 [address] [place] [address] documented as of this encounter
--- OUTSIDE RECORDS SUMMARY | 2022-05-27 12:00 | XMS_ITS | Encounter Summary ---
:1945 Author Organization [facility] Address [address] [place] [address] Care Team Providers Name Role Phone Shayla Alford D.O. Primary Care Provider [phone] Reason for Visit Reason Onset Date Comments Outpatient COVID-19 Testing 08/21/2020 Encounter Details Date Type Department Care Team Description 08/21/2020 External Outreach Department of Chad Pettit Infect ion Upper Internal Medicine in J, D.O. Respiratory (Primary [place], [place] [address] Dx) [address] [place] [phone] Social History Tobacco Use [...] do you attend samaritan or Never 2021 sabianist services? Do you [...] have completed or the highest Martin, MEd, AIR SUPPORT OPERATIONS OPERATOR, CAYDEN) degree you have received? Sex Assigned at Date Recorded Male 05/21/2018 2:34 PM CDT documented as of this encounter Progress Notes Deborah Valles, R.N. - 08/21/2020 10:54 AM CST Encounter created for the drive-through COVID-19 testing. ECTIONS SPECIALIST documented in this encounter Plan of Treatment Not on filedocumented as of this encounter Procedures Procedure Name Priority Date/Time Associated Diagnosis Comme nts SARS CORONAVIRUS-2 Routine 08/21/2020 3:00 PM Infection Upper Results for this RNA, V COLLECTIONS SPECIALIST Respiratory procedure are i n the results section. documented in this encounter Results SARS Coronavirus-2 RNA, V Symptomatic (08/21/2020 3:00 PM COLLECTIONS SPECIALIST) [facility] Method Time Signature SARS-CoV-2 Swab, 08/22/2020 MKTO Specimen Nasopharynx 6:38 AM COLLECTIONS SPECIALIST Source SARS CoV-2 Undetected Undetected 08/22/2020 MKTO RNA, TMA 6:38 AM COLLECTIONS SPECIALIST Comment: SARS-CoV-2 RNA absent. This result does not rule out COVID-19 in the patient, as the sensitivity of the test depends o n the timing of the specimen collection and the quality of the specim en. Result should be correlated with patient's history and clinical presentat ion. ----ADDITIONAL INFORMATION---- This test is performed using the Aptima SARS-CoV-2 assay ([employer] which has received Emergency Use Authori zation (EUA) by the U.S. Food and Drug Administration. Fact sheets for this Emergency Use Autho rization (EUA) assay can be found at the following links: For Healthcare Providers: https://www.OpGen a.gov/media/145753/download For Patients: https://www.fda.gov/media/ 417857/download Specimen Anatomical Collection Method Collection Time Receive d Time (Source) Location / / Volume Laterality Varies 08/21/2020 3:00 PM 0 9:34 (Nasopharynx) COLLECTIONS SPECIALIST PM COLLECTIONS SPECIALIST Chad Pettit D.O. LAB MICROBIOLOGY - GENERAL O GERMAN Performing Organization Address City/State/[facility] Phon e Number [facility]- [address] [place] [phone] [place] [address] [place] [address] System [address] documented in this encounter Visit Diagnoses Diagnosis Infection Upper Respiratory - Primary documented in this encounter Additional Health Concerns Infection Onset Date Last Indicated Resolved Time COVID19 Pending 08/21/2020 08/21/2020 08/22/2020 6:39 AM COLLECTIONS SPECIALIST Assessment Noted Time PHQ-9 Depression Total Score: 18 04/28/2018 11:27 AM C DT documented as of this encounter Care Teams Economics Faculty Member Relationship Specialty Start Date End Date Shayla Alford D.O. PCP - General Internal Medicine 05/22/20 [address] [place] [address] documented as of this encounter
--- OUTSIDE RECORDS SUMMARY | 2022-05-27 12:00 | XMS_ITS | Encounter Summary ---
:1945 Author Organization [facility] Address [address] [place] [address] Care Team Providers Name Role Phone Shayla Alford D.O. Primary Care Provider [phone] Reason for Visit Reason Comments Care Coordination Follow Up Encounter Details Date Type Department Care Team Description 07/25/2020 Patient Out[facility] Internal Medicine A, R.N. (Follow Up) in [place], [facility] [address] [place], [place] [address] [address] [place], [place] [phone] (Work) [phone] Social History Tobacco Use Types Packs/Day Years [...] do you attend anglican or Never 2021 catholic services? Do you [...] 03/23/2019 you have completed or the highest Matrin, MEd, WHEEL LACER AND TRUER, CAYDEN) degree you have received? Sex Assigned [...] is currently at his [facility] in [place]. He says he is feeling really well [...] provider prior to starting new medications, including qicw-fbc-epaozdd and herbal supplements. PROBLEM SOLVING -Recognize barriers [...] clinic business hours. After clinichours, call Expert house manager Line for concerning symptoms. Call . Appointment line: For Family Medicine appointments in [place] call [phone] or Internal Medicine appointments [phone]. To reschedule or cancel an appointment with your RN Wax Pattern Assembler, call or leave a message through the switchboard at [phone]. Nurse Wax Pattern Assembler: ALLEY Bond. You may call Friday-Friday from 7:30-4:00. Primary Care: Keep regular follow-up appointments with your Primary Care Provider. Call your Care Team during office hours or call the clinic (above numbers). You may also send a message to your Provider or Wax Pattern Assembler/ Care Team through your Patient Online Services [...] apple juice ? cup cooked cereal ??? [place] ? cup haresh freddy ? cup sherbet [...] was instructed to contact the child care supervisor with any questions or concerns and statedunderstanding [...] documented as of this encounter Care Teams Homeland Security Program Specialist Relationship Specialty Start Date End Date Shayla Alford D.O. PCP - General Internal Medicine 05/22/[address] [place] [phone] documented as of this encounter
--- OUTSIDE RECORDS SUMMARY | 2022-05-27 12:00 | XMS_ITS | Encounter Summary ---
:1945 Author Organization [facility] Address [address] [place] [address] Care Team Providers Name Role Phone Shayla Alford D.OMauro Primary Care Provider [phone] Encounter Details Date Type Department Care Team Description 10/27/2020 Hospital Encounter Department of Alexys Diabete s Mellitus Type Laboratory Medicine Shayla queen, 2 Hyperg lycemia (HCC) in [facility] [address] [place] [phone] Social History Tobacco Use Types Packs/Day [...] do you attend yazdanism or Never 2021 gnosticism services? Do you [...] have completed or the highest Martin, MEd, STEEL RIGGER, CAYDEN) degree you have received? Sex [...] by mouth tabletIndications: daily. 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 documented in this encounter Results (ABNORMAL) Albumin, Random, Urine (10/27/2020 10:32 AM BUSINESS LINE MANAGER) [facility] gist Method Time Signature Microalbumin 124.0 mg/L 10/27/2020 OWAT 12:15 PM BUSINESS LINE MANAGER Creatinine 26 mg/dL 10/27/2020 OW[place] 11:30 AM BUSINESS LINE MANAGER Albumin/Creatinin 477 (H) <17 mg/g 10/27/2020 OWAT e Ratio 12:15 PM BUSINESS LINE MANAGER Specimen Anatomical Collection Method Collection Time Receive d Time (Source) Location / / Volume Laterality Urine (Urine, 10/27/2020 10:32 10/27/2020 Clean Catch) AM BUSINESS LINE MANAGER 10:43 AM BUSINESS LINE MANAGER Shayla Alford D.O. LAB URINE ORDERABLES Performing Organization Address City/State/ZIP Code Phon e Number [facility]- [address] [place] [address] [place] [address] System in [place] [address] documented in this encounter Visit Diagnoses Diagnosis Diabetes Mellitus Type 2 Hyperglycemia ( HCC) documented in this encounter Additional Health Concerns Assessment Noted Time PHQ-9 Depression Total Score: 18 04/28/2018 11:27 AM Anna Marie BROUSSARD documented as of this encounter Care Teams Radio Producer Relationship Specialty Start Date End Date Shayla Alford D.O. PCP - General Internal Medicine 05/22/[address] [phone] documented as of this encounter
--- OUTSIDE RECORDS SUMMARY | 2022-05-27 12:00 | XMS_ITS | Encounter Summary ---
:1945 Author Organization [facility] Address [address] [place] [address] Care Team Providers Name Role Phone Shayla Alford D.O. Primary Care Provider [phone] Encounter Details Date Type Department Care Team Description 08/21/2020 Admin Visit Department of Family Medicine, [address] [address] [facility] [phone] Social History Tobacco Use Types Packs/Day Years [...] do you attend sabianism or Never 2021 congregation services? Do you [...] completed or the highest Martin, MEd, ELECTRICAL AND INSTRUMENT ENGINEER, CAYDEN) degree you have received? Sex Assigned at Date Recorded Male 05/21/2018 2:34 PM CDT documented as of this encounter Plan of Treatment Not on filedocumented as of this encounter Visit Diagnoses Not on filedocumented in this encounter Additional Health Concerns Infection Onset Date Last Indicated Resolved Time COVID19 Pending 08/21/2020 08/21/2020 08/22/2020 6:39 AM OCULAR PATHOLOGIST Assessment Noted Time PHQ-9 Depression Total Score: 18 04/28/2018 11:27 AM C DT documented as of this encounter Care Teams Library Historian Relationship Specialty Start Date End Date Shayla Alford D.O. PCP - General Internal Medicine 05/22/20 [address] [place] [address] documented as of this encounter
--- OUTSIDE RECORDS SUMMARY | 2022-05-27 12:00 | XMS_ITS | Encounter Summary ---
:1945 Author Organization [facility] Address [address] [place] [address] Care Team Providers Name Role Phone Shayla Alford D.O. Primary Care Provider [phone] Reason for Visit Reason Comments Care Coordination Follow Up Encounter Details Date Type Department Care Team Description 08/08/2020 Patient Outreach [facility] Internal Medicine A, R.N. (Follow Up) in [place], [facility] [address] [place], [place] [address] [address] [place], [place] [phone] (Work) [phone] Social History Tobacco Use Types Packs/Day Years [...] do you attend yazidism or Never 2021 baptism services? Do you [...] have completed or the highest Martin, MEd, ANESTHESIOLOGY FELLOW, CAYDEN) degree you have received? Sex Assigned [...] provider prior to starting new medications, including twxl-nll-ylzusac and herbal supplements. PROBLEM SOLVING -Recognize barriers [...] clinic business hours. After clinichours, call Expert glue mixer Line for concerning symptoms. Call . Appointment line: For Family Medicine appointments in [place] call [phone] or Internal Medicine appointments [phone]. To reschedule or cancel an appointment with your RN Vice President Of News, call or leave a message through the switchboard at [phone]. Nurse Vice President Of News: ALLEY Bond. You may call Friday-Friday from 7:30-4:00. Primary Care: Keep regular follow-up appointments with your Primary Care Provider. Call your Care Team during office hours or call the clinic (above numbers). You may also send a message to your Provider or Vice President Of News/ Care Team through your Patient Online Services [...] apple juice ? cup cooked cereal ??? [place] ? cup haresh freddy ? cup sherbet [...] The patient was instructed to contact the technical healthcare consultant with any questions or concerns and statedunderstanding of the information provided. Disposition/Recommendation: recommended continue engagement in self-management activities Education: patient/caller able to teach back Caller agreeable to plan of care: yes The following references were used: none RT KEEPER documented in this encounter Plan of Treatment Not on filedocumented as of this encounter Visit Diagnoses Not on filedocumented in this encounter Additional Health Concerns Assessment Noted Time PHQ-9 Depression Total Score: 18 04/28/2018 11:27 AM C DT documented as of this encounter Care Teams Spring Internship Relationship Specialty Start Date End Date Shayla Alford D.O. PCP - General Internal Medicine 05/22/[address] [phone] documented as of this encounter
--- OUTSIDE RECORDS SUMMARY | 2022-05-27 12:00 | XMS_ITS | Encounter Summary ---
:1945 Author Organization [facility] Address [address] [place] [address] Care Team Providers Name Role Phone Shayla Alford.OMauro Primary Care Provider [phone] Encounter Details Date Type Department Care Team Description 09/06/2020 Orders Only Department of Internal Coleman Alford iabetes Mellitus Type 2 Medicine in Shayla Dixon, D.O Mauro Without Complication [place] [address] (HCC) (Primary Dx) [address] [place] [phone] Social History Tobacco Use [...] completed or the highest Martin, MEd, CARE CONNECTOR, CAYDEN) degree you have received? Sex Assigned at Date Recorded Male 05/21/2018 2:34 PM CDT documented as of this encounter Plan of Treatment Not on filedocumented as of this encounter Results (ABNORMAL) Hemoglobin A1c (10/12/2020 9:15 AM NEON INSTALLER) athologist Signature Hemoglobin A1c, 8.4 (H) 4.2 - 5.6 10/12/2020 OW[place] B % 9:44 AM NEON INSTALLER Comment: Hemoglobin A1c values greater than or eq ual to 6.5 percent are diagnostic for diabetes mellitus. ?? Diagnosis should be confirmed by repeat testing. ??In diabet ic patients, HbA1c goals should be discussed with healthcar e provider. Specimen Anatomical Collection Method Collection Time Receive d Time (Source) Location / / Volume Laterality Blood (Blood, 10/12/2020 9:15 AM 10/12/19 9:27 Venous) NEON INSTALLER AM NEON INSTALLER Shayla Alford D.O. LAB BLOOD ADD-ON Performing Organization Address City/State/ZIP Code Phon e Number [facility]- [address] [place] [address] [place] [address] System in [place] [address] [facility] documented in this encounter Visit Diagnoses Diagnosis Diabetes Mellitus Type 2 Without Complic ation (HCC) - Primary documented in this encounter Additional Health Concerns Assessment Noted Time PHQ-9 Depression Total Score: 18 04/28/2018 11:27 AM C DT documented as of this encounter Care Teams Automotive Service Porter Relationship Specialty Start Date End Date Shayla Alford D.O. PCP - General Internal Medicine 05/22/[address]199 [place] [address] documented as of this encounter
--- OUTSIDE RECORDS SUMMARY | 2022-05-27 12:00 | XMS_ITS | Encounter Summary ---
:1945 Author Organization [facility] Address [address] [place] [address] Care Team Providers Name Role Phone Shyala Alford D.O. Primary Care Provider Reason for Referral Outpatient (Routine) - Closed Specialty Diagnoses / Procedures Referred By Contact Refer red To Contact Community Internal Diagnoses Failure Heart (HCC) Hypertension Essential Primary Diabetes Mellitus Type 2 Hyperglycemia (HCC) Pancreatitis Chronic Recurrent (HCC) ARMAAN Alford [facility] Tulio Mcguire [address] [place] [phone] Referral ID Status Reason Start Date Expiration Date Visits Requ ested Visits Authorized [id number] Closed 10/20/2020 10/20/2021 1 1 INSURANCE SALES AGENT Outpatient (Routine) - Closed Specialty Diagnoses / Procedures Referred By Contact Refer red To Contact Pharmacy Diagnoses Diabetes Mellitus Type 2 Hyperglycemia (HCC) Shayla Alford [facility] Region D.O. [address] [place] [phone] Referral ID Status Reason Start Date Expiration Date Visits Requ ested Visits Authorized [id number] Closed 10/20/2020 10/20/2021 1 1 INSURANCE SALES AGENT Reason for Visit Outpatient (Routine) - Closed Specialty Diagnoses / Procedures Referred By Contact Refer red To Contact [facility] Internal ARMAAN Alford [facility] Tulio Mcguire [address] [place] [address] Referral ID Status Reason Start Date Expiration Date Visits Requ ested Visits Authorized [id number] Closed 10/12/2020 10/12/2021 1 1 Encounter Details Date Type Department Care Team Description 10/20/2020 Office Visit Department of Internal Rocío Di abetes Mellitus Type 2 Hyperglycemia (HCC) (Primary Dx); Medicine in [place], , Coleman Mcguire Failure Heart (HCC); [place] [address] Hypertension Essential Primary; [address] [place], [place] Pancreatitis Chronic Recurre nt (HCC); [place] [address] Hyperlipidemia; [phone] Malignant Neoplasm Of Bladde r [...] do you attend mu-ism or Never 2021 scientologist services? Do you [...] have completed or the highest Martin, MEd, FOAM CASTER, CAYDEN) degree you have received? Sex Assigned at Date Recorded Male 05/21/2018 2:34 PM CDT documented as of this encounter Last Filed Vital Signs Vital Sign Reading Time Taken Comments Blood Pressure 146/70 10/20/2020 8:48 AM LIFE INSURANCE SALES AGENT Pulse 52 10/20/2020 8:48 AM LIFE INSURANCE SALES AGENT Temperature 36.2 ??C (97.1 ??F) 10/20/2020 8:48 AM LIFE INSURANCE SALES AGENT Respiratory Rate 16 10/20/2020 8:48 AM LIFE INSURANCE SALES AGENT Oxygen Saturation - - Inhaled Oxygen Concentration - - Weight 99.2 kg (218 lb 11.1 oz) 10/20/2020 8:48 AM LIFE INSURANCE SALES AGENT Height 189 cm (6' 2.41) 10/20/2020 8:48 AM LIFE INSURANCE SALES AGENT Body Mass Index 27.77 10/20/2020 8:48 AM LIFE INSURANCE SALES AGENT documented in this encounter Progress Notes Shayla [...] I did offer a referral to a Keg Raiser which he declines. I also offered a [...] Failure Heart (HCC). 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 The creation of this recordis based on the scribe remotely listening to the visit and the provider's statements to them. This do cument has been checked and approved by the attending provider. Electronically signed by: Shayla Alford D.O. 10/20/20 2:11 PM LIFE INSURANCE SALES AGENT INSURANCE SALES AGENT documented in this encounter Plan of Treatment [...] Results (ABNORMAL) Hemoglobin A1c (10/27/2020 10:32 AM LIFE INSURANCE SALES AGENT) P athologist Signature Hemoglobin A1c, 8.4 (H) 4.2 - 5.6 10/27/2020 OW[place] B % 11:22 AM LIFE INSURANCE SALES AGENT Comment: Hemoglobin A1c values greater than or eq ual to 6.5 percent are diagnostic for diabetes mellitus. ?? Diagnosis should be confirmed by repeat testing. ??In diabet ic patients, HbA1c goals should be discussed with healthcar e provider. Specimen Anatomical Collection Method Collection Time Receive d Time (Source) Location / / Volume Laterality Blood (Blood, 10/27/2020 10:32 10/27/2020 Venous) AM LIFE INSURANCE SALES AGENT 10:43 AM LIFE INSURANCE SALES AGENT Shayla Alford D.O. LAB BLOOD ADD-ON Performing Organization Address City/State/ZIP Code Phon e Number [facility]- [address] [place] [address] [facility] [place] [address] System in [place] [address] (ABNORMAL) Basic Metabolic Panel (10/27/2020 10:32 AM LIFE INSURANCE SALES AGENT) Analysis Performed At Patho logist Time Signature Potassium, P 4.5 3.6 - 5.2 10/27/2020 [place] mmol/L 11:28 AM LIFE INSURANCE SALES AGENT Sodium, P 139 135 - 145 10/27/2020 [place] mmol/L 11:28 AM LIFE INSURANCE SALES AGENT Chloride, P 103 98 - 107 10/27/2020 [place] mmol/L 11:28 AM LIFE INSURANCE SALES AGENT Bicarbonate, P 26 22 - 29 10/27/2020 [place] mmol/L 11:28 AM LIFE INSURANCE SALES AGENT Anion Gap, P 10 7 - 15 10/27/2020 [place] 11:28 AM LIFE INSURANCE SALES AGENT BUN (Blood Urea 50 (H) 8 - 24 10/27/2020 [place] Nitrogen), P mg/dL 11:28 AM LIFE INSURANCE SALES AGENT Creatinine 1.91 (H) 0.74 - 10/27/2020 [place] 1.35 mg/dL 11:28 AM LIFE INSURANCE SALES AGENT eGFR-Black/Afri 38 (L) >=60 10/27/2020 [place] can [place] mL/min/BSA 11:28 AM LIFE INSURANCE SALES AGENT Comment: ----ADDITIONAL INFORMATION---- Estimated GFR calculated using the 2009 CKD_EPI creatinine equation. eGFR Non-Black/ 33 (L) >=60 mL/min/BSA 10/27/2020 11:28 AM LIFE INSURANCE SALES AGENT [facility] Comment: ----ADDITIONAL INFORMATION---- Estimated GFR calculated using the 2009 CKD_EPI creatinine equation. Calcium, Total, P 9.1 8.8 - 10.2 mg/dL 10/27/2020 11:2 8 AM LIFE INSURANCE SALES AGENT OW[place] Glucose, P 141 (H) 70 - 140 mg/dL 10/27/2020 11:28 AM LIFE INSURANCE SALES AGENT [place] Specimen Anatomical Collection Method Collection Time Receive d Time (Source) Location / / Volume Laterality Blood (Blood, 10/27/2020 10:32 10/27/2020 Venous) AM LIFE INSURANCE SALES AGENT 10:43 AM LIFE INSURANCE SALES AGENT Shayla Alford D.O. LAB BLOOD ADD-ON Performing Organization Address City/[facility]/ZIP Code Phon e Number [facility]- [address] [place] [address] [place] [address] System in [place] [address] (ABNORMAL) Albumin, Random, Urine (10/27/2020 10:32 AM LIFE INSURANCE SALES AGENT) [facility] gist Method Time Signature Microalbumin 124.0 mg/L 10/27/2020 [place] 12:15 PM LIFE INSURANCE SALES AGENT Creatinine 26 mg/dL 10/27/2020 [place] 11:30 AM LIFE INSURANCE SALES AGENT Albumin/Creatinin 477 (H) <17 mg/g 10/27/2020 OW[place] e Ratio 12:15 PM LIFE INSURANCE SALES AGENT Specimen Anatomical Collection Method Collection Time Receive d Time (Source) Location / / Volume Laterality Urine (Urine, 10/27/2020 10:32 10/27/2020 Clean Catch) AM LIFE INSURANCE SALES AGENT 10:43 AM LIFE INSURANCE SALES AGENT Shayla Alford D.O. LAB URINE ORDERABLES Performing Organization Address City/[facility]/ZIP Code Phon e Number [facility]- [address] [place] [address] [facility] [place] [address] System in [place] [address] documented in this encounter Visit [...] documented as of this encounter Care Teams Room Worker Relationship Specialty Start Date End Date Shayla Alford D.O. PCP - General Internal Medicine 05/22/20 [address] [place] [address] documented as of this encounter
--- OUTSIDE RECORDS SUMMARY | 2022-05-27 12:01 | XMS_ITS | Encounter Summary ---
:1945 Author Organization [facility] Address [address] [place] [address] Care Team Providers Name Role Phone Shayla Alford D.O. Primary Care Provider [phone] Encounter Details Date Type Department Care Team Description 07/10/2020 Clinical Communication Department of Internal Andrei Dejesus Medicine in [place], [place], D.O Mauro [place] [address] [place] [phone] Social History Tobacco Use Types Packs/Day Years [...] you attend jehovah's witness or Never 2021 advent services? Do you [...] have completed or the highest Martin, MEd, RIDING COACH, CAYDEN) degree you have received? Sex [...] The following references were used: provider Shayla Djeesus DO documented in this encounter Plan of Treatment Not on filedocumented as of this encounter Visit Diagnoses Not on filedocumented in this encounter Additional Health Concerns Assessment Noted Time PHQ-9 Depression Total Score: 18 04/28/2018 11:27 AM C DT documented as of this encounter Care Teams Supervisor Pig Machine Relationship Specialty Start Date End Date Shayla Alford D.O. PCP - General Internal Medicine 05/22/[address] [address] documented as of this encounter
--- OUTSIDE RECORDS SUMMARY | 2022-05-27 12:01 | XMS_ITS | Encounter Summary ---
:1945 Author Organization [facility] Address [address] [place] [address] Care Team Providers Name Role Phone Shayla Alford D.O. Primary Care Provider [phone] Encounter Details Date Type Department Care Team Description 2020 Orders Only Department of Internal Selvin Alford [facility] Risk Medication Medicine in Shayla Dixon, DKyle Wade (Primary Dx) [place] [address] [place] [phone] Social History Tobacco Use Types Packs/Day Years [...] you attend latter day or Never 2021 faith services? Do you [...] have completed or the highest Martin, MEd, FISCAL TECHNICIAN, CAYDEN) degree you have received? Sex Assigned at Date Recorded Male 05/21/2018 2:34 PM CDT documented as of this encounter Plan of Treatment Not on filedocumented as of this encounter Results (ABNORMAL) Hepatic Function Panel (03/21/2021 9:29 AM CDT) [facility] gist Method Time Signature Bilirubin, Total, [...] Address City/State/ZIP Code Phon e Number [facility]- [address] [place] [address] [facility] [place] [place] [address] System in [place] [address] documented in this encounter Visit Diagnoses Diagnosis High Risk Medication - Primary documented in this encounter Additional Health Concerns Assessment Noted Time PHQ-9 Depression Total Score: 18 04/28/2018 11:27 AM C DT documented as of this encounter Care Teams Health Plan Manager Relationship Specialty Start Date End Date Shayla Alford D.O. PCP - General Internal Medicine 05/22/[address] [place] [address] documented as of this encounter
--- OUTSIDE RECORDS SUMMARY | 2022-05-27 12:01 | XMS_ITS | Encounter Summary ---
:1945 Author Organization [facility] Address [address] [place] [address] Care Team Providers Name Role Phone Shayla Alford D.O. Primary Care Provider [phone] Encounter Details Date Type Department Care Team Description 06/02/2020 Hospital Encounter Department of [facility] Heart ([facility]) Laboratory Medicine Pato Ojeda in [place], [address] [place], [place] [address] [facility] [address] [place] [phone] [address] (Work) [phone] Social History Tobacco Use Types Packs/Day Years [...] do you attend baptist or Never 2021 sabianism services? Do you [...] have completed or the highest Martin, MEd, CHARGE ACCOUNT IDENTIFICATION CLERK, CAYDEN) degree you have received? Sex [...] by mouth tabletIndications: daily. 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 As directed per DR capsule zwicth-grberkyl-avkxxjs Take 1 capsule by 0 10/12/2020 (CREON) mouth as needed for 6,000-19,000-30,[address] capsule yircln-yieqzjtd-douvykd Take 1 capsule by 0 10/12/2020 (hzcmpg-cfdqreft-jqndrsk) mouth 3 (three) 6,000-19,000-30,000 Unit times a [...] patient: Not applicable Call back number: [phone] Commutator Tester: Not applicable Information provided: Called and spoke with patient. Informed him of his results and Dr. Da Silva's recommendations as listed below. turf sales person/patient received and understood education/information provided: Yes turf sales person/patient agreed to the Plan of Care: Yes [...] eGFR-Black/Afri 37 (L) >=60 06/02/2020 [place] can [place] mL/min/BSA 1:23 PM CDT Comment: ----ADDITIONAL INFORMATION---- Estimated GFR calculated using the 2009 CKD_EPI creatinine equation. eGFR Non-Black/ 32 (L) >=60 mL/min/BSA 06/02/2020 1:23 PM CDT OWAT [place] Comment: ----ADDITIONAL INFORMATION---- Estimated GFR calculated using [...] e Number [facility]- [address] [place] [address] [facility] [place] [address] System in [place] [address] documented in this encounter Visit Diagnoses Diagnosis Failure Heart (HCC) documented in this encounter Additional Health Concerns Assessment Noted Time PHQ-9 Depression Total Score: 18 04/28/2018 11:27 AM C DT documented as of this encounter Care Teams Telephone Order Clerk Relationship Specialty Start Date End Date Shayla Alford D.O. PCP - General Internal Medicine 05/22/[address] [phone] documented as of this encounter
--- OUTSIDE RECORDS SUMMARY | 2022-05-27 12:01 | XMS_ITS | Encounter Summary ---
:1945 Author Organization [facility] Address [address] [place] [address] Care Team Providers Name Role Phone Shayla Alford D.O. Primary Care Provider [phone] Reason for Visit Reason Comments DMV DM Report Encounter Details Date Type Department Care Team Description 2020 Clinical Communication Department of Internal Andrei RIVERA DM Report Medicine in [place], Shayla, D .OMauro [place] [address] [place] [phone] Social History Tobacco Use [...] do you attend gnosticist or Never 2021 spiritism services? Do you belong to any clubs or No 10/09/2021 organizations such as gnosticist groups, unions, fraUS Biologic or athletic groups, or school groups? How [...] have completed or the highest Martin, MEd, FARMWORKER CRANBERRY, CAYDEN) degree you have received? Sex Assigned at Date Recorded Male 05/21/2018 2:34 PM CDT documented as of this encounter Plan of Treatment Not on filedocumented as of this encounter Visit Diagnoses Not on filedocumented in this encounter Additional Health Concerns Assessment Noted Time PHQ-9 Depression Total Score: 18 04/28/2018 11:27 AM C DT documented as of this encounter Care Teams Flame Hardener Relationship Specialty Start Date End Date Shayla Alford D.O. PCP - General Internal Medicine 05/22/[address] [phone] documented as of this encounter
--- OUTSIDE RECORDS SUMMARY | 2022-05-27 12:01 | XMS_ITS | Encounter Summary ---
:1945 Author Organization [facility] Address [address] [place] [address] Care Team Providers Name Role Phone Shayla Alford D.O. Primary Care Provider [phone] Encounter Details Date Type Department Care Team Description 06/14/2020 Diagnostic Division of Pulmonary Rocío As thma Extrinsic Moderate (HCC); Medicine in [place], Gianna Mcguire Effusion Pleural; [place] [address] Dyspnea Multifactorial [address] [place], [place] [address] [phone] Social History Tobacco Use Types Packs/Day Years [...] do you attend denominational or Never 2021 mormon services? Do you [...] completed or the highest Martin, MEd, PATTERN GATER, CAYDEN) degree you have received? Sex Assigned [...] documented as of this encounter Care Teams Electronics Hardware Design Engineer Relationship Specialty Start Date End Date Shayla Alford D.O. PCP - General Internal Medicine [facility] [place] [address] documented as of this encounter
--- OUTSIDE RECORDS SUMMARY | 2022-05-27 12:01 | XMS_ITS | Encounter Summary ---
:1945 Author Organization [facility] Address [address] [place] [address] Care Team Providers Name Role Phone Shayla Alford D.O. Primary Care Provider Reason for Visit Reason Comments Diabetes Mellitus Medication Visit [facility] Pre-op Exam Outpatient (Routine) - Modified Order Specialty Diagnoses / Procedures Referred By Contact Refer red To Contact Community Internal ARMAAN Alford [facility] Shayla D.OMauro [address] [place] [address] Referral ID Status Reason Start Date Expiration Date Visits V isits Requested Authorized [id number] Modified 06/30/2020 06/30/2021 1 1 Order Encounter Details Date Type Department Care Team Description 07/19/2020 Office Visit Department of Internal Coleman Alford 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 Chronic Systolic (Congestive) Heart Fail ure (HCC); [place] [address] Pancreatitis Chronic Recurrent (HCC); [address] [place], [place] Hypertension Essential Prima ry; [place] [address] Asthma Extrinsic Moderate (HCC); [id number] Hyperlipidemia; Elevated Liver Enzyme Abnormal, Aspartat e Transaminase, Serum Glutamic- Oxaloacetic Transaminase, Alanine Transaminase; [phone] Anemia In Chron ic Kidney Disease (Fax) [...] do you attend catholic or Never 2021 catholic services? Do you [...] completed or the highest Martin, MEd, CUSTOMER SERVICE AGENT, [employer]) degree you have received? Sex [...] is interested in establishing with a local pipe maker. Referral has been placed. Has felt weakness [...] (ABNORMAL) Hepatic Function Panel (10/12/2020 9:15 AM PROVIDER SERVICE REPRESENTATIVE) [facility] Method Time Signature Bilirubin, Total, P 0.5 <=1.2 10/12/2020 [facility] mg/dL 10:13 AM PROVIDER SERVICE REPRESENTATIVE Bilirubin, Direct, P <0.2 0.0 - 0.3 10/12/2020 [facility] mg/dL 10:19 AM PROVIDER SERVICE REPRESENTATIVE Aspartate 32 8 - 48 10/12/2020 [facility] Aminotransferase U/L 10:13 AM PROVIDER SERVICE REPRESENTATIVE (AST), P Alanine 46 7 - 55 10/12/2020 [facility] Aminotransferase U/L 10:13 AM PROVIDER SERVICE REPRESENTATIVE (ALT), P Alkaline 135 (H) 40 - 129 10/12/2020 [facility] Phosphatase, P U/L 10:13 AM PROVIDER SERVICE REPRESENTATIVE Albumin, P 3.9 3.5 - 5.0 10/12/2020 [facility] g/dL 10:13 AM PROVIDER SERVICE REPRESENTATIVE Protein, Total, P 6.6 6.3 - 7.9 10/12/2020 [facility] g/dL 10:13 AM PROVIDER SERVICE REPRESENTATIVE Specimen Anatomical Collection Method Collection Time Receive d Time (Source) Location / / Volume Laterality Blood (Blood, 10/12/2020 9:15 AM 10/12/19 9:27 Venous) PROVIDER SERVICE REPRESENTATIVE AM PROVIDER SERVICE REPRESENTATIVE Shayla Alford D.O. LAB BLOOD ADD-ON Performing Organization Address City/State/ZIP Code Phon e Number [facility]- [address] [place] [address] [facility] [place] [address] System in [place] [address] (ABNORMAL) CBC with Differential, Blood (10/12/2020 9:15 AM PROVIDER SERVICE REPRESENTATIVE) [facility] Method Time Signature Hemoglobin 10.0 (L) 13.2 - 10/12/2020 [facility] 16.6 g/dL 9:31 AM PROVIDER SERVICE REPRESENTATIVE Hematocrit 30.9 (L) 38.3 - 10/12/2020 [facility] 48.6 % 9:31 AM PROVIDER SERVICE REPRESENTATIVE Erythrocytes 3.29 (L) 4.35 - 10/12/2020 [facility] 5.65 9:31 AM PROVIDER SERVICE REPRESENTATIVE x10(12)/L MCV 93.9 78.2 - 10/12/2020 [facility] 97.9 fL 9:31 AM PROVIDER SERVICE REPRESENTATIVE RBC Distrib Width 12.6 11.8 - 10/12/2020 [facility] 14.5 % 9:31 AM PROVIDER SERVICE REPRESENTATIVE Platelet Count 176 135 - 317 10/12/2020 [facility] x10(9)/L 9:31 AM PROVIDER SERVICE REPRESENTATIVE Leukocytes 6.1 3.4 - 9.6 10/12/2020 [facility] x10(9)/L 9:31 AM PROVIDER SERVICE REPRESENTATIVE Neutrophils 4.36 1.56 - 10/12/2020 [facility] 6.45 9:31 AM PROVIDER SERVICE REPRESENTATIVE x10(9)/L Lymphocytes 0.93 (L) 0.95 - 10/12/2020 [facility] 3.07 9:31 AM PROVIDER SERVICE REPRESENTATIVE x10(9)/L Monocytes 0.42 0.26 - 10/12/2020 [facility] 0.81 9:31 AM PROVIDER SERVICE REPRESENTATIVE x10(9)/L Eosinophils 0.28 0.03 - 10/12/2020 [facility] 0.48 9:31 AM PROVIDER SERVICE REPRESENTATIVE x10(9)/L Basophils 0.06 0.01 - 10/12/2020 [facility] 0.08 9:31 AM PROVIDER SERVICE REPRESENTATIVE x10(9)/L Specimen Anatomical Collection Method Collection Time Receive d Time (Source) Location / / Volume Laterality Blood (Blood, 10/12/2020 9:15 AM 10/12/19 9:27 Venous) PROVIDER SERVICE REPRESENTATIVE AM PROVIDER SERVICE REPRESENTATIVE Shayla Alford D.O. LAB BLOOD ADD-ON Performing Organization Address City/State/ZIP Code Phon e Number [facility]- [address] [place] [address] [place] [address] System in [place] [address] (ABNORMAL) Basic Metabolic Panel (10/12/2020 9:15 AM PROVIDER SERVICE REPRESENTATIVE) Analysis Performed At Patho logist Time Signature Potassium, P 4.4 3.6 - 5.2 10/12/2020 [facility] mmol/L 10:13 AM PROVIDER SERVICE REPRESENTATIVE Sodium, P 137 135 - 145 10/12/2020 [facility] mmol/L 10:13 AM PROVIDER SERVICE REPRESENTATIVE Chloride, P 103 98 - 107 10/12/2020 [facility] mmol/L 10:13 AM PROVIDER SERVICE REPRESENTATIVE Bicarbonate, P 26 22 - 29 10/12/2020 [facility] mmol/L 10:13 AM PROVIDER SERVICE REPRESENTATIVE Anion Gap, P 8 7 - 15 10/12/2020 [facility] 10:13 AM PROVIDER SERVICE REPRESENTATIVE BUN (Blood Urea 41 (H) 8 - 24 10/12/2020 [facility] Nitrogen), P mg/dL 10:13 AM PROVIDER SERVICE REPRESENTATIVE Creatinine 1.70 (H) 0.74 - 10/12/2020 [facility] 1.35 mg/dL 10:13 AM PROVIDER SERVICE REPRESENTATIVE eGFR-Black/Afri 44 (L) >=60 10/12/2020 [facility] can [place] mL/min/BSA 10:13 AM PROVIDER SERVICE REPRESENTATIVE Comment: ----ADDITIONAL INFORMATION---- Estimated GFR calculated using the 2009 CKD_EPI creatinine equation. eGFR Non-Black/ 38 (L) >=60 mL/min/BSA 10/12/2020 10:13 AM PROVIDER SERVICE REPRESENTATIVE [facility] [place] Comment: ----ADDITIONAL INFORMATION---- Estimated GFR calculated using the 2009 CKD_EPI creatinine equation. Calcium, Total, P 8.8 8.8 - 10.2 mg/dL 10/12/2020 10:1 3 AM PROVIDER SERVICE REPRESENTATIVE [facility] Glucose, P 305 (H) 70 - 140 mg/dL 10/12/2020 10:13 AM PROVIDER SERVICE REPRESENTATIVE [facility] Specimen Anatomical Collection Method Collection Time Receive d Time (Source) Location / / Volume Laterality Blood (Blood, 10/12/2020 9:15 AM 10/12/19 9:27 Venous) PROVIDER SERVICE REPRESENTATIVE AM PROVIDER SERVICE REPRESENTATIVE Shayla Alford D.O. LAB BLOOD ADD-ON Performing Organization Address City/State/ZIP Code Phon e Number [facility]- [address] [place] [address] [place] [address] System in [place] [address] documented in this encounter Visit [...] documented as of this encounter Care Teams Ed Transporter Relationship Specialty Start Date End Date Shayla Alford D.O. PCP - General Internal Medicine 05/22/[address] [address] documented as of this encounter
--- OUTSIDE RECORDS SUMMARY | 2022-05-27 12:01 | XMS_ITS | Encounter Summary ---
:1945 Author Organization [facility] Address [address] [place] [address] Care Team Providers Name Role Phone Shayla Alford D.O. Primary Care Provider [phone] Encounter Details Date Type Department Care Team [...] do you attend islam or Never 2021 confucianism services? Do you [...] completed or the highest Martin, MEd, REGIONAL SALES TRAINER, [employer]) degree you have received? Sex [...] as of this encounter Care Teams Environmental Air Specialist Relationship Specialty Start Date End Date Shayla Alford D.O. PCP - General Internal Medicine 05/22/20 [address] [place] [address] documented as of this encounter
--- OUTSIDE RECORDS SUMMARY | 2022-05-27 12:01 | XMS_ITS | Encounter Summary ---
:1945 Author Organization [facility] Address [address] [place] [address] Care Team Providers Name Role Phone Shayla Alford D.O. Primary Care Provider [phone] Reason for Referral Outpatient (Routine) - Closed Specialty Diagnoses / Procedures Referred By Contact Refer red To Contact Diagnoses Chronic Systolic (Congestive) Heart Failure (HCC) Manuel Evans M.D. [facility] Procedures Echo Transthoracic (TTE) [address] [place] [address] Referral ID Status Reason Start Date Expiration Date Visits Requ ested Visits Authorized [id number] Closed 06/06/2020 06/06/2021 1 1 Outpatient (Routine) - Closed Specialty Diagnoses / Procedures Referred By Contact Refer red To Contact Diagnoses Chronic Systolic (Congestive) Heart Failure (HCC) Manuel Evans M.D. [facility] Procedures ECG 12 Lead [address] [place] [address] Referral ID Status Reason Start Date Expiration Date Visits Requ ested Visits Authorized [id number] Closed 06/06/2020 06/06/2021 1 1 Outpatient (Routine) - Closed Specialty Diagnoses / Procedures Referred By Contact Refer red To Contact Cardiovascular Disease Diagnoses Chronic Systolic (Congestive) Heart Failure (HCC) Manuel Evans [place] M.D. [address] [place] [address] Referral ID Status Reason Start Date Expiration Date Visits Requ ested Visits Authorized [id number] Closed 06/06/2020 06/06/2021 1 1 Reason for Visit Outpatient (Routine) - Closed Specialty Diagnoses / Referred By Contact Referred To Contact Procedures Cardiovascular Diseases / Diagnoses Chronic Systolic (Congestive) Heart Failure (HCC) [facility] Felicita Cardiovascular Disease Tulio Mcguire [address] [place] [phone] Referral ID Status Reason Start Date Expiration Date Visits Requ ested Visits Authorized [id number] Closed 05/16/2020 05/16/2021 1 1 Encounter Details Date Type Department Care Team Description 06/06/2020 Comprehensive Visit Department of Werner Evans 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 Hyperlipidemia; [place], [place] [address] Beat Premature Ventricular; [address] [place], [place] [phone] Social History Tobacco Use Types Packs/Day Years [...] do you attend anabaptist or Never 2021 confucianist services? Do you [...] have completed or the highest Martin, MEd, HHA, CAYDEN) degree you have received? Sex Assigned [...] CLINIC CONSULT REFERRAL Shayla Alford D.O. [address] [place] [phone] CHIEF COMPLAINT Congestive heart failure Supervised by: [...] The patient was seen by Cardiology within [facility] in November 2019 and had a [...] of breath after dismissal, he presented to [facility] ER on 05/03 and was admitted to [...] visit with his primary care provider in [place] on 05/16, he was found to have [...] by mouth daily., Disp: , Rfl: ??? pdggbd-vxeqymbm-lneszfa (CREON) 6,000-19,000-30,[address] capsule, 2 capsules 3 (three) times a day with meals. As directed , Disp: , Rfl: ??? ihujzv-hpfpdzkv-eeryult (CREON) 6,000-19,000-30,[address] capsule, Take [...] as needed. , Disp: , Rfl: ??? wzjnnh-qxgngkyz-lltzeio (yaamnr-wvofuwtp-gyadabr) 6,000-19,000-30,[address] capsule, Take 1 [...] INSERTION INTRAOCULAR LENS Left 04/2008 At the [facility] ??? LASER OF PROSTATE W/ GREEN LIGHT PVP 08/28/2016 Greenlight photoselective vaporization of the prostate and cystoscopy with bladder biopsy and fulguration of a 2cm area; 08/28/[address] Prasanna Bernal at the [facility]. ??? TONSILLECTOMY ??? VASECTOMY SOCIAL HISTORY [...] have stabilized on his current regimen with [id number] mg daily. He appears euvolemic on exam [...] Results ECG 12 Lead (11/17/2020 12:56 PM PRINCIPAL SOLUTIONS ARCHITECT) P athologist Signature Ventricular Rate 53 BPM MUSE ECG/Min MA Interval 222 ms MUSE QRSD Interval 112 ms MUSE QT Interval 496 ms MUSE QTC Interval 466 ms MUSE P Van -2 degrees MUSE R Van -46 degrees MUSE T Wave Van -21 degrees MUSE Specimen Anatomical Collection Method Collection Time Receive d Time (Source) Location / / Volume Laterality 11/17/2020 12:56 11/17/2020 1:09 PM PRINCIPAL SOLUTIONS ARCHITECT PM PRINCIPAL SOLUTIONS ARCHITECT Impressions MUSE - 11/17/2020 1:09 PM PRINCIPAL SOLUTIONS ARCHITECT Sinus bradycardia with 1st degree A-V block Low anterior forces Left axis deviation Non-specific intra-ventricular conductio n delay Nonspecific T wave abnormality When compared with ECG of 06-MAY-2020 13 :05, MA interval has increased Reviewed by SEAN Boo [...] compared with ECG of 06-MAY-2020 13 :05, MA interval has increased Reviewed by SEAN Boo Manuel Evans M.D. ECG ORDERABLES Performing Organization Address City/State/ZIP Code Phon e Number GUILLERMO JHAVERI (TTE) 2D ECHO DOPPLER COLOR (11/17/2020 11:23 AM PRINCIPAL SOLUTIONS ARCHITECT) [employer] Method Time Signature Ejection Fraction 50 MC [...] / / Volume Laterality 11/17/2020 9:48 AM PRINCIPAL SOLUTIONS ARCHITECT Impressions 11/17/2020 2:48 PM PRINCIPAL SOLUTIONS ARCHITECT Intravenous Lumason ultrasound enhancement agent(s) administered to [...] effusion. For the complete report, see the [employer] Documents. Narrative 11/17/2020 2:48 PM PRINCIPAL SOLUTIONS ARCHITECT For the complete report, see the [employer] Documents. Final Impressions 1. Mild-moderately enlarged left [...] and Lateral 2 Views (11/17/2020 9:31 AM PRINCIPAL SOLUTIONS ARCHITECT) Anatomical Region Laterality Modality Chest, Thoracic RST LOS, Thoracic ARZ LOS, Thoracic N/A Digital Radiography FLA LOS Specimen (Source) Anatomical Collection Method Collection Time Re ceived Time Location / / Volume Laterality 11/17/2020 9:50 AM PRINCIPAL SOLUTIONS ARCHITECT Impressions 11/17/2020 9:51 AM PRINCIPAL SOLUTIONS ARCHITECT In the interval from the prior study of 05/18/2020, a small right pleural effusion has decreased in size. Trace left pleural effusion has likely resolved. No definite additional changes . Calcified aorta. Borderline size of cardiac silhouette with slight pulmonary venous hypertension. Mitral annular calcification. Degenerative changes thor acic spine. Narrative 11/17/2020 9:51 AM PRINCIPAL SOLUTIONS ARCHITECT EXAM: ??DX CHEST AP OR PA AND [...] B-Type Natriuretic Peptide (BNP) (11/17/2020 9:03 AM PRINCIPAL SOLUTIONS ARCHITECT) P athologist Signature NT-Pro BNP 2558 (H) <=119 pg/mL 11/17/2020 DTL 10:08 AM PRINCIPAL SOLUTIONS ARCHITECT Comment: NT-proBNP values less than 300 pg/mL [...] (Blood, 11/17/2020 9:03 AM 11/17/19 9:26 Venous) PRINCIPAL SOLUTIONS ARCHITECT AM PRINCIPAL SOLUTIONS ARCHITECT Manuel Evans M.D. LAB BLOOD ADD-ON Performing Organization Address City/[facility]/ZIP Code Phon e Number [facility] - [address] [place] [address] [facility] Potassium (11/17/2020 9:03 AM PRINCIPAL SOLUTIONS ARCHITECT) athologist Signature Potassium, S 4.3 3.6 - 5.2 11/17/2020 DTL mmol/L 10:08 AM PRINCIPAL SOLUTIONS ARCHITECT Specimen Anatomical Collection Method Collection Time Receive d Time (Source) Location / / Volume Laterality Blood (Blood, 11/17/2020 9:03 AM 11/17/19 9:26 Venous) PRINCIPAL SOLUTIONS ARCHITECT AM PRINCIPAL SOLUTIONS ARCHITECT Manuel Evans M.D. LAB BLOOD ADD-ON Performing Organization Address City/[facility]/ZIP Code Phon e Number [facility] - [address] [place] [phone] [place] [address] [facility] Bicarbonate (11/17/2020 9:03 AM PRINCIPAL SOLUTIONS ARCHITECT) athologist Signature Bicarbonate, S 25 22 - 29 11/17/2020 DTL mmol/L 10:08 AM PRINCIPAL SOLUTIONS ARCHITECT Specimen Anatomical Collection Method Collection Time Receive d Time (Source) Location / / Volume Laterality Blood (Blood, 11/17/2020 9:03 AM 11/17/19 9:26 Venous) PRINCIPAL SOLUTIONS ARCHITECT AM PRINCIPAL SOLUTIONS ARCHITECT Manuel Evans M.D. LAB BLOOD ADD-ON Performing Organization Address City/State/ZIP [place] Phon e Number [facility] - [address] (ABNORMAL) S-TSH (Thyroid-Stimulating Hormone - Sensitive) (11/17/2020 9:03 AM PRINCIPAL SOLUTIONS ARCHITECT) P athologist Signature TSH, Sensitive 19.4 (H) 0.3 - 4.2 11/17/2020 DTL mIU/L 10:07 AM PRINCIPAL SOLUTIONS ARCHITECT Specimen Anatomical Collection Method Collection Time Receive d Time (Source) Location / / Volume Laterality Blood (Blood, 11/17/2020 9:03 AM 11/17/19 9:26 Venous) PRINCIPAL SOLUTIONS ARCHITECT AM PRINCIPAL SOLUTIONS ARCHITECT Manuel Evans M.D. LAB BLOOD ADD-ON Performing Organization Address City/State/ZIP Code Phon e Number [facility] - [address] [place], [place] [address] [facility] [place] [address] Laboratories-[facility] [address] (ABNORMAL) CBC with Differential, Blood (11/17/2020 9:03 AM PRINCIPAL SOLUTIONS ARCHITECT) Patholo gist Method Time Signature Hemoglobin 10.2 (L) 13.2 - 11/17/2020 DTL 16.6 g/dL 9:34 AM PRINCIPAL SOLUTIONS ARCHITECT Hematocrit 30.8 (L) 38.3 - 11/17/2020 DTL 48.6 % 9:34 AM PRINCIPAL SOLUTIONS ARCHITECT Erythrocytes 3.33 (L) 4.35 - 11/17/2020 DTL 5.65 9:34 AM PRINCIPAL SOLUTIONS ARCHITECT x10(12)/L MCV 92.5 78.2 - 11/17/2020 DTL 97.9 fL 9:34 AM PRINCIPAL SOLUTIONS ARCHITECT RBC Distrib Width 12.6 11.8 - 11/17/2020 DTL 14.5 % 9:34 AM PRINCIPAL SOLUTIONS ARCHITECT Platelet Count 167 135 - 317 11/17/2020 DTL x10(9)/L 9:34 AM PRINCIPAL SOLUTIONS ARCHITECT Leukocytes 6.6 3.4 - 9.6 11/17/2020 DTL x10(9)/L 9:34 AM PRINCIPAL SOLUTIONS ARCHITECT Neutrophils 4.75 1.56 - 11/17/2020 DTL 6.45 9:34 AM PRINCIPAL SOLUTIONS ARCHITECT x10(9)/L Lymphocytes 0.96 0.95 - 11/17/2020 DTL 3.07 9:34 AM PRINCIPAL SOLUTIONS ARCHITECT x10(9)/L Monocytes 0.44 0.26 - 11/17/2020 DTL 0.81 9:34 AM PRINCIPAL SOLUTIONS ARCHITECT x10(9)/L Eosinophils 0.35 0.03 - 11/17/2020 DTL 0.48 9:34 AM PRINCIPAL SOLUTIONS ARCHITECT x10(9)/L Basophils 0.06 0.01 - 11/17/2020 DTL 0.08 9:34 AM PRINCIPAL SOLUTIONS ARCHITECT x10(9)/L Specimen Anatomical Collection Method Collection Time Receive d Time (Source) Location / / Volume Laterality Blood (Blood, 11/17/2020 9:03 AM 11/17/19 9:26 Venous) PRINCIPAL SOLUTIONS ARCHITECT AM PRINCIPAL SOLUTIONS ARCHITECT Manuel Evans M.D. LAB BLOOD ADD-ON Performing Organization Address City/State/ZIP Code Phon e Number [facility] - [address] [place], [place] [address] [facility] [place] [address] Laboratories-[facility] [address] (ABNORMAL) Lipid Panel (11/17/2020 9:03 AM PRINCIPAL SOLUTIONS ARCHITECT) athologist Signature Cholesterol, 118 mg/dL 11/17/2020 DTL Total 10:07 AM PRINCIPAL SOLUTIONS ARCHITECT Comment: ----REFERENCE VALUE---- Desirable: < 200 Borderline high: 200 - 239 High: > or = 240 Triglycerides 90 mg/dL 11/17/2020 10:07 AM PRINCIPAL SOLUTIONS ARCHITECT DT L Comment: ----REFERENCE VALUE---- Normal: <150 Borderline high: 150-199 High: 200-499 Very high: > or =500 Cholesterol, HDL, S 34 (L) >=40 mg/dL 11/17/2020 10:07 AM PRINCIPAL SOLUTIONS ARCHITECT DTL Calculated LDL 66 mg/dL 11/17/2020 10:07 AM PRINCIPAL SOLUTIONS ARCHITECT D TL Comment: ----REFERENCE VALUE---- Desirable: <100 Above Desirable: 100-129 Borderline high: 130-159 High: 160-189 Very high: > or =190 Cholesterol, Non-HDL, Calculated 84 mg/dL 021 10:07 AM PRINCIPAL SOLUTIONS ARCHITECT DTL Comment: ----REFERENCE VALUE---- Desirable: <130 Above Desirable: 130-159 Borderline high: 160-189 High: 190-219 Very high: > or =220 Specimen Anatomical Collection Method Collection Time Receive d Time (Source) Location / / Volume Laterality Blood (Blood, 11/17/2020 9:03 AM 11/17/19 9:26 Venous) PRINCIPAL SOLUTIONS ARCHITECT AM PRINCIPAL SOLUTIONS ARCHITECT Manuel L Clavell M.D. LAB BLOOD ADD-ON Performing Organization Address City/[facility] Code Phon e Number [facility] - [address] [place], [place] [address] [facility] [address]TMount [place], [place] [id number] [place] [address] (ABNORMAL) BUN (Blood Urea Nitrogen) (11/17/2020 9:03 AM PRINCIPAL SOLUTIONS ARCHITECT) P athologist Signature BUN (Blood Urea 57 (H) 8 - 24 11/17/2020 DTL Nitrogen), S mg/dL 10:08 AM PRINCIPAL SOLUTIONS ARCHITECT Specimen Anatomical Collection Method Collection Time Receive d Time (Source) Location / / Volume Laterality Blood (Blood, 11/17/2020 9:03 AM 11/17/19 9:26 Venous) PRINCIPAL SOLUTIONS ARCHITECT AM PRINCIPAL SOLUTIONS ARCHITECT Manuel Evans M.D. LAB BLOOD ADD-ON Performing Organization Address City/[facility]/ZIP Code Phon e Number [facility] - [address] [place], [place] [address] [place] [address] [place] [address] Laboratories-[address] AST (Aspartate Aminotransferase) (11/17/2020 9:03 AM PRINCIPAL SOLUTIONS ARCHITECT) Patholo gist Method Time Signature Aspartate 31 8 - 48 11/17/2020 DTL Aminotransferase U/L 10:08 AM PRINCIPAL SOLUTIONS ARCHITECT (AST), S Specimen Anatomical Collection Method Collection Time Receive d Time (Source) Location / / Volume Laterality Blood (Blood, 11/17/2020 9:03 AM 11/17/19 9:26 Venous) PRINCIPAL SOLUTIONS ARCHITECT AM PRINCIPAL SOLUTIONS ARCHITECT Manuel Evans M.D. LAB BLOOD ADD-ON Performing Organization Address City/[facility] Code Phon e Number [facility] - [address] [place], [place] [address] [facility] [address]TMount [place], [place] [id number] [place] [address] (ABNORMAL) Creatinine with Estimated GFR (11/17/2020 9:03 AM PRINCIPAL SOLUTIONS ARCHITECT) Analysis Performed At Patho logist Time Signature Creatinine 1.86 (H) 0.74 - 11/17/2020 DTL 1.35 mg/dL 10:07 AM PRINCIPAL SOLUTIONS ARCHITECT eGFR-Non 34 (L) >=60 11/17/2020 DTL Black/ mL/min/BSA 10:07 AM PRINCIPAL SOLUTIONS ARCHITECT Bangladeshi Comment: ----ADDITIONAL INFORMATION---- Estimated GFR calculated using the 2009 CKD_EPI creatinine equation. eGFR-Black/ 39 (L) >=60 mL/min/BSA 2020 10:07 AM PRINCIPAL SOLUTIONS ARCHITECT DTL Comment: ----ADDITIONAL INFORMATION---- Estimated GFR calculated using the 2009 CKD_EPI creatinine equation. Specimen Anatomical Collection Method Collection Time Receive d Time (Source) Location / / Volume Laterality Blood (Blood, 11/17/2020 9:03 AM 11/17/19 9:26 Venous) PRINCIPAL SOLUTIONS ARCHITECT AM PRINCIPAL SOLUTIONS ARCHITECT Manuel Evans M.D. LAB BLOOD ADD-ON Performing Organization Address [facility] Phon e Number [facility] - [address] [place], [place] [address] [place] [address] (ABNORMAL) Glucose, Fasting (11/17/2020 9:03 AM PRINCIPAL SOLUTIONS ARCHITECT) P athologist Signature Glucose, P 219 (H) 70 - 100 11/17/2020 DTL mg/dL 9:56 AM PRINCIPAL SOLUTIONS ARCHITECT Last Intake 1 hr 11/17/2020 DTL 9:26 AM PRINCIPAL SOLUTIONS ARCHITECT Specimen Anatomical Collection Method Collection Time Receive d Time (Source) Location / / Volume Laterality Blood (Blood, 11/17/2020 9:03 AM 11/17/19 9:26 Venous) PRINCIPAL SOLUTIONS ARCHITECT AM PRINCIPAL SOLUTIONS ARCHITECT Manuel Evans M.D. LAB BLOOD NON ADD-ON Performing Organization Address City/[facility] Code Phon e Number [facility] - [address] [place], [place] [address] [facility] [place] [address] Sodium (11/17/2020 9:03 AM PRINCIPAL SOLUTIONS ARCHITECT) P athologist Signature Sodium, S 140 135 - 145 11/17/2020 DTL mmol/L 10:08 AM PRINCIPAL SOLUTIONS ARCHITECT Specimen Anatomical Collection Method Collection Time Receive d Time (Source) Location / / Volume Laterality Blood (Blood, 11/17/2020 9:03 AM 11/17/19 9:26 Venous) PRINCIPAL SOLUTIONS ARCHITECT AM PRINCIPAL SOLUTIONS ARCHITECT Manuel Evans M.D. LAB BLOOD ADD-ON Performing Organization Address City/State/ZIP Code Phon e Number [facility] - [address] [place], [place] [address] [facility] [place] [place] [address] Laboratories-[facility] [address] documented in this [...] as of this encounter Care Teams Dental Instrument Maker Relationship Specialty Start Date End Date hSayla Alford D.O. PCP - General Internal Medicine 05/22/[address] [phone] documented as of this encounter
--- OUTSIDE RECORDS SUMMARY | 2022-05-27 12:01 | XMS_ITS | Encounter Summary ---
:1945 Author Organization [facility] Address [address] [place] [address] Care Team Providers Name Role Phone Shayla Alford D.O. Primary Care Provider [phone] Reason for Referral Outpatient (Routine) - Closed Specialty Diagnoses / Procedures Referred By Contact Refer red To Contact Diagnoses Personal History Of Malignant Neoplasm Of Bladder Prasanna Bernal M.D. [facility] Procedures Cystoscopy (specific provider) [address] [place] [address] Referral ID Status Reason Start Date Expiration Date Visits Requ ested Visits Authorized [id number] Closed 06/12/2020 06/12/2021 1 1 Reason for Visit Reason Comments Bladder Cancer 6 month cystoscopy Outpatient (Routine) - Canceled Specialty Diagnoses / Procedures Referred By Contact Refer red To Contact Diagnoses Personal History Of Malignant Neoplasm Of Bladder Prasanna Bernal M.D. [facility] Procedures Cystoscopy (specific provider) [address] [place] [phone] Referral ID Status Reason Start Date Expiration Date Visits V isits Requested Authorized [id number] Canceled 11/25/2019 11/24/2020 1 1 Encounter Details Date Type Department Care Team Description 06/12/2020 Procedure visit Department of Urology Prasanna Bernal, Personal History Of laron Patel M.D. Malignant Ne[facility] [place] [address]adder [address] [place], [place] [phone] Social History Tobacco Use Types Packs/Day [...] do you attend hinduism or Never 2021 scientologist services? Do you [...] have completed or the highest Martin, MEd, ORTHODONTIC LABORATORY TECHNICIAN, CAYDEN) degree you have received? Sex [...] as of this encounter Results (ABNORMAL) Cytology Non-WASTE WATER OPERATOR (Scheduled) (06/18/2021 9:08 AM CDT) Component Value Ref Test Analysis Performed At [facility] Method Time Signature 06/19/2021 HKCY (A) 9:32 [...] City/State/ZIP Code Phon e Number [facility]- [address] [place] [address] [place] [address] documented in this encounter Visit Diagnoses Diagnosis Personal History Of Malignant Neoplasm O f Bladder documented in this encounter Additional Health Concerns Assessment Noted Time PHQ-9 Depression Total Score: 18 04/28/2018 11:27 AM C DT documented as of this encounter Care Teams Skeet Operator Relationship Specialty Start Date End Date Shayla Alford D.O. PCP - General Internal Medicine 05/22/20 [address] [place] [phone] documented as of this encounter
--- OUTSIDE RECORDS SUMMARY | 2022-05-27 12:01 | XMS_ITS | Encounter Summary ---
:1945 Author Organization [facility] Address [address] [place] [address] Care Team Providers Name Role Phone Shayla Alford D.O. Primary Care Provider [phone] Encounter Details Date Type Department Care Team Description 06/14/2020 Diagnostic Division of Pulmonary [place]ío As thma Extrinsic Moderate (HCC); Medicine in [place], Gianna Mcguire Effusion Pleural; [place] [address] Dyspnea Multifactorial [address] [place], [place] [address] [phone] Social History Tobacco Use Types Packs/Day Years [...] do you attend bahai or Never 2021 confucianism services? Do you [...] have completed or the highest Martin, MEd, APNS, CAYDEN) degree you have received? Sex Assigned [...] Signature VC MAX PRE 4.67 L 06/15/2020 [facility] 9:12 AM CDT [address] FVC 4.67 L 06/15/2020 [facility] 9:12 AM CDT SUITE FEV1 3.31 L 06/15/2020 [facility] 9:12 AM CDT SUITE FEV1/FVC 70.90 % 06/15/2020 [facility] 9:12 AM CDT SUITE [id number]% 2.26 L/s 06/15/2020 [facility] 9:12 AM CDT SUITE PEF PRE 7.72 L/s 06/15/2020 [facility] 9:12 AM CDT SUITE FET PRE 7.95 sec 06/15/2020 [facility] 9:12 AM CDT SUITE DLCO 14.95 ml/(min*mm 06/15/2020 [facility] Hg) 9:12 AM CDT SUITE DLCOc 17.52 ml/(min*mm 06/15/2020 [facility] Hg) 9:12 AM CDT SUITE HB 10.30 g(Hb)/dL 06/15/2020 [facility] 9:12 AM CDT SUITE VA 7.30 L 06/15/2020 [facility] 9:12 AM CDT SUITE [id number] 98.00 % 06/15/2020 [facility] 9:12 AM CDT SUITE PulseRest 42.00 1/min 06/15/2020 [facility] 9:12 AM CDT SUITE [id number] 97.00 % 06/15/2020 [facility] 9:12 AM CDT SUITE PulseExer 61.00 1/min 06/15/2020 [facility] 9:12 AM CDT SUITE EXER TIME 1.30 min 06/15/2020 [facility] 9:12 AM CDT SUITE STEP HEIGHT 9.00 Inch 06/15/2020 [facility] PRE 9:12 AM CDT SUITE % PRED VC MAX 103.74 % 06/15/2020 [facility] 9:12 AM CDT SUITE FVC% 103.74 % 06/15/2020 [facility] 9:12 AM CDT SUITE FEV1% 99.73 % 06/15/2020 [facility] 9:12 AM CDT SUITE % PRED 95.24 % 06/15/2020 [facility] FEV1/FVC 9:12 AM CDT SUITE % PRED FEF 97.12 % 06/15/2020 [facility] 25-75% 9:12 AM CDT SUITE % PRED PEF 86.66 % 06/15/2020 [facility] 9:12 AM CDT SUITE PRED VC MAX 4.50 L 06/15/2020 [facility] 9:12 AM CDT SUITE PRED FVC 4.50 L 06/15/2020 [facility] 9:12 AM CDT SUITE PRED FEV 1 3.32 L 06/15/2020 [facility] 9:12 AM CDT SUITE PRED FEV1/FVC 74.44 % 06/15/2020 [facility] 9:12 AM CDT SUITE PRED FEF 2.33 L/s 06/15/2020 [facility] 25-75% 9:12 AM CDT SUITE PRED PEF 8.91 L/s 06/15/2020 [facility] 9:12 AM CDT SUITE Specimen (Source) Anatomical Collection Method Collection Time Re ceived Time Location / / Volume Laterality 06/14/2020 1:25 PM CDT Narrative This result has an attachment that is no t available. Shayla Alford D.O. PFT ORDERABLES Performing Organization Address City/State/ZIP Code Phon e Number [facility] SUITE [facility] [address] documented in this encounter Visit Diagnoses Diagnosis Asthma Extrinsic Moderate (HCC) Effusion Pleural Dyspnea Multifactorial documented in this encounter Additional Health Concerns Assessment Noted Time PHQ-9 Depression Total Score: 18 04/28/2018 11:27 AM C DT documented as of this encounter Care Teams Cell Support Operator Relationship Specialty Start Date End Date Shayla Alford D.O. PCP - General Internal Medicine 05/22/[address] [phone] documented as of this encounter
--- OUTSIDE RECORDS SUMMARY | 2022-05-27 12:01 | XMS_ITS | Encounter Summary ---
:1945 Author Organization [facility] Address [address] [place] [address] Care Team Providers Name Role Phone Shayla Alford D.O. Primary Care Provider [phone] Reason for Visit Reason Comments Care Coordination Follow up Encounter Details Date Type Department Care Team Description 07/03/2020 [facility] Out[facility] Internal Medicine A, R.N. (Follow up) in [place], [facility] [address] [place], [place] [address] [address] [place], [place] [phone] [address] (Work) [phone] Social History Tobacco Use Types Packs/Day Years [...] do you attend mandaen or Never 2021 jew services? Do you [...] completed or the highest Martin, MEd, ASSISTANT SHIFT SUPERVISOR, [place]) degree you have received? Sex [...] never been contacted by that program from [facility] is supposed to be a heart [...] lot of exercise. 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 I get way to distracted [...] provider prior to starting new medications, including gkoc-trw-gvonapy and herbal supplements. PROBLEM SOLVING -Recognize barriers [...] clinic business hours. After clinichours, call Expert treating plant operator Line for concerning symptoms. Call . Appointment line: For Family Medicine appointments in [place] call [phone] or Internal Medicine appointments [phone]. To reschedule or cancel an appointment with your RN Infection Prevention Practitioner, call or leave a message through the switchboard at [phone]. Nurse Infection Prevention Practitioner: ALLEY Bond. You may call Friday-Friday from 7:30-4:00. Primary Care: Keep regular follow-up appointments with your Primary Care Provider. Call your Care Team during office hours or call the clinic (above numbers). You may also send a message to your Provider or Infection Prevention Practitioner/ Care Team through your Patient Online Services [...] apple juice ? cup cooked cereal ??? [place] ? cup haresh freddy ? cup sherbet [...] The patient was instructed to contact the ocular care aide with any questions or concerns and statedunderstanding [...] documented as of this encounter Care Teams Hydraulic Auto Jack Mechanic Relationship Specialty Start Date End Date Shayla Alofrd D.O. PCP - General Internal Medicine 05/22/20 [address], [place] [phone] documented as of this encounter
--- OUTSIDE RECORDS SUMMARY | 2022-05-27 12:01 | XMS_ITS | Encounter Summary ---
:1945 Author Organization [facility] Address [address] [place] [address] Care Team Providers Name Role Phone Shayla Alford D.O. Primary Care Provider [phone] Reason for Visit Outpatient (Routine) - Closed Specialty Diagnoses / Procedures Referred By Contact Refer red To Contact Pulmonary Medicine Diagnoses Asthma Extrinsic Moderate (HCC) Chronic Systolic (Congestive) Heart Failure (HCC) Effusion Pleural Dyspnea Multifactorial [facility] Shayla, D.OMauro [address] [place] [address] Referral ID Status Reason Start Date Expiration Date Visits V isits Requested Authorized [id number] Closed Specialty 05/16/2020 05/16/2021 1 1 Services Required Encounter Details Date Type Department Care Team Description 06/14/2020 Office Visit Division of Ailyn Sims Asthma Ex trinsic Moderate (HCC); Pulmonary Medicine Pato Duque Chronic Systolic (Congestive) Heart Fail ure (HCC); in [place], [facility] [address] Effusion Pleural; [place], [place] Dyspnea Multifactorial [address] [address] [place], [place] [phone] (Wo rk) [address] [phone] Social History Tobacco Use Types Packs/Day Years [...] do you attend faith or Never 2021 muslim services? Do you [...] have completed or the highest Martin, MEd, MANUAL ARTS THERAPIST, CAY[place]) degree you have received? Sex [...] documented as of this encounter Care Teams Freelance Designer Relationship Specialty Start Date End Date Shayla Alford D.O. PCP - General Internal Medicine 05/22/20 [address] [place] [phone] documented as of this encounter
--- OUTSIDE RECORDS SUMMARY | 2022-05-27 12:01 | XMS_ITS | Encounter Summary ---
:1945 Author Organization [facility] Address [address] [place] [address] Care Team Providers Name Role Phone Shayla Alford D.O. Primary Care Provider [phone] Reason for Visit Reason Comments Care Coordination Monthly billing - 2019 Encounter Details Date Type Department Care Team Description 06/28/2020 [facility] A, R.N. (Monthly billing - in [place], [address] [facility] 2019) [place], [place] [address] [address] [place], [place] [phone] [address] (Work) [phone] Social History Tobacco Use Types Packs/Day Years [...] do you attend sikh or Never 2021 samaritan services? Do you [...] have completed or the highest Martin, MEd, CARPET JOURNEYMAN, CAYDEN) degree you have received? Sex Assigned [...] documented as of this encounter Care Teams Hooker Inspector Relationship Specialty Start Date End Date Shayla Alford D.O. PCP - General Internal Medicine 05/22/[address] [address] documented as of this encounter
--- OUTSIDE RECORDS SUMMARY | 2022-05-27 12:01 | XMS_ITS | Encounter Summary ---
:1945 Author Organization [facility] Address [address] [place] [address] Care Team Providers Name Role Phone Shayla Alford D.O. Primary Care Provider [phone] Reason for Visit Reason Comments Care Coordination Call in Encounter Details Date Type Department Care Team Description 07/10/2020 [facility] Internal Medicine A, R.N. (Call in) in [place], [facility] [address] [place], [place] [address] [address] [place], [place] [phone] [address] (Work) [phone] Social History Tobacco Use Types Packs/Day Years [...] do you attend pentecostal or Never 2021 yarsani services? Do you [...] completed or the highest Martin, MEd, COURT TRANSCRIBER, [place]) degree you have received? Sex Assigned [...] history and multiple concerns. Electronically signed by: hSayla Alford D.O. 07/13/20 2:06 PM CDT Coco Luque C.MJaime - 07/10/2020 8:51 AM CDT completed documented in this encounter Plan of Treatment Not on filedocumented as of this encounter Visit Diagnoses Not on filedocumented in this encounter Additional Health Concerns Assessment Noted Time PHQ-9 Depression Total Score: 18 04/28/2018 11:27 AM C DT documented as of this encounter Care Teams Law Firm Receptionist Relationship Specialty Start Date End Date Shayla Alford D.O. PCP - General Internal Medicine 05/22/20 [address] [address] documented as of this encounter
--- OUTSIDE RECORDS SUMMARY | 2022-05-27 12:01 | XMS_ITS | Encounter Summary ---
:1945 Author Organization [facility] Address [address] [place] [address] Care Team Providers Name Role Phone Shayla Alford D.O. Primary Care Provider [phone] Reason for Visit Reason Comments Care Coordination follow up Encounter Details Date Type Department Care Team Description 06/20/2020 Patient Outreach [facility] Internal Medicine A, R.N. (follow up) in [place], [facility] [address] [place], [place] [address] [address] [place], [place] [phone] [address] (Work) [phone] Social History Tobacco Use Types Packs/Day Years [...] you attend oriental orthodox or Never 2021 scientology services? Do you [...] completed or the highest Martin, MEd, FIRST PRESS OPERATOR, CAYDEN) degree you have received? [...] of his medical care followed by the [place] in [place]. Upcoming [place] appointments were reviewed. Patient's plan of care was discussed and mailed to him via Individual Digital at this time. Chronic disease follow up: [...] provider prior to starting new medications, including qsmf-ptz-yhskeph and herbal supplements. PROBLEM SOLVING -Recognize barriers [...] business hours. After clinichours, call Expert rug hooker Line for concerning symptoms. Call . Appointment line: For Family Medicine appointments in [place] call [phone] or Internal Medicine appointments [phone]. To reschedule or cancel an appointment with your RN Marketing Analytics Analyst, call or leave a message through the switchboard at [phone]. Nurse Marketing Analytics Analyst: ALLEY Bond. You may call Friday-Friday from 7:30-4:00. Primary Care: Keep regular follow-up appointments with your Primary Care Provider. Call your Care Team during office hours or call the clinic (above numbers). You may also send a message to your Provider or Marketing Analytics Analyst/ Care Team through your Patient Online Services [...] apple juice ? cup cooked cereal ??? [place] ? cup haresh freddy ? cup sherbet [...] The patient was instructed to contact the caretaker resort with any questions or concerns and statedunderstanding [...] as of this encounter Care Teams Grain Mixer Relationship Specialty Start Date End Date Shayla Alford D.O. PCP - General Internal Medicine 05/22/[address] [address] (work) documented as of this encounter
--- OUTSIDE RECORDS SUMMARY | 2022-05-27 12:01 | XMS_ITS | Encounter Summary ---
:1945 Author Organization [facility] Address [address] [place] [address] Care Team Providers Name Role Phone Shayla Alford D.O. Primary Care Provider [phone] Reason for Visit Reason Comments Care Coordination Follow up Encounter Details Date Type Department Care Team Description 06/08/2020 Patient Outreach [facility] Internal Medicine A, R.N. (Follow up) in [place], [facility] [address] [place], [place] [address] [address] [place], [place] [phone] [address] (Work) [phone] Social History Tobacco Use Types Packs/Day Years [...] do you attend yarsanism or Never 2021 synagogue services? Do you [...] have completed or the highest Martin, MEd, HAT SPRAYER, CAYDEN) degree you have received? Sex Assigned [...] The patient was instructed to contact the critical care specialist with any questions or concerns and statedunderstanding [...] documented as of this encounter Care Teams Solar Maintenance Technician Relationship Specialty Start Date End Date Shayla Alford D.O. PCP - General Internal Medicine 05/22/[address] [address] [phone] (work) documented as of this encounter
--- OUTSIDE RECORDS SUMMARY | 2022-05-27 12:01 | XMS_ITS | Encounter Summary ---
:1945 Author Organization [facility] Address [address] [place] [address] Care Team Providers Name Role Phone Shayla Alford D.O. Primary Care Provider [phone] Reason for Referral Outpatient (Routine) - Modified Order Specialty Diagnoses / Procedures Referred By Contact Refer red To Contact Community Internal ARMAAN Alford [facility] Medicine Tulio Mcguire [address] [place] [address] Referral ID Status Reason Start Date Expiration Date Visits V isits Requested Authorized [id number] Modified 06/30/2020 06/30/2021 1 1 Order Scheduling [...] Expiration Date Visits Requ ested Visits Authorized [id number] Closed 05/22/2020 05/22/2021 1 1 Encounter Details Date Type Department Care Team Description 06/30/2020 Office Visit Department of Internal Rocío Di abetes 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 Do you [...] completed or the highest Martin, MEd, CORPORATE AIRCRAFT MECHANIC, CAYDEN) degree you have received? Sex [...] condition. He is currently on insulin. We ptdh1ms check a hemoglobin A1c. The following portions [...] condition. He is currently on insulin. We skdq8nj check a hemoglobin A1c. - Hemoglobin A1c; [...] Future; Expected date: 06/30/2020 - Thyroid Function [place]; Future; Expected date: 06/30/2020 #6 Screening Cancer Colon Patient is due for his colon cancer screening, we will be seen the patient in 1 month for preop. Other orders - [facility] Internal Medicine office visit (clinic); Future; Expected date: 07/31/2020 Time spent today 42 minutes more than 50% counseling Electronically signed by: Shayla Alford D.O. 06/30/20 12:31 PM CDT documented in this encounter Plan of Treatment Scheduled Referrals Name Type Priority Associated Diagnoses Order S [facility] Internal Outpatient Referral Routine Ex pected: Medicine office 07/31/2020 visit (clinic) (Approximate) , Expires: 06/30/2023 documented as of this encounter Results (ABNORMAL) Thyroid Function [place] (07/01/2020 10:01 AM CDT) P athologist Signature [...] D.O. LAB BLOOD ADD-ON Performing Organization Address City/[facility]/ZIP Code Phon e Number [facility]- [address] [place] [facility] [place] [address] [place] [address] System in [place] [address] (ABNORMAL) ALT (Alanine Aminotransferase) (07/01/2020 10:01 AM CDT) [facility] Method Time Signature Alanine 65 (H) 7 - 55 07/01/2020 [place] Aminotransferase U/L 11:26 AM CDT (ALT), P Specimen Anatomical Collection Method Collection Time Receive d Time (Source) Location / / Volume Laterality Blood (Blood, 07/01/2020 10:01 07/01/2020 Venous) AM CDT 10:07 AM CDT Shayla Alford D.O. LAB BLOOD ADD-ON Performing Organization Address City/State/ZIP Code Phon e Number [facility]- [address] [place] [facility] [place] [address] [facility] [place] [address] System in [place] [address] AST (Aspartate Aminotransferase) (07/01/2020 10:01 AM CDT) [facility] gist Method Time Signature Aspartate 38 8 - 48 07/01/2020 [place] Aminotransferase U/L 11:26 AM CDT (AST), P Specimen Anatomical Collection Method Collection Time Receive d Time (Source) Location / / Volume Laterality Blood (Blood, 07/01/2020 10:01 07/01/2020 Venous) AM CDT 10:07 AM CDT Shayla Alford D.O. LAB BLOOD ADD-ON Performing Organization Address City/State/ZIP Code Phon e Number [facility]- [address] [place] [address] [facility] [place] [address] System in [place] [address] (ABNORMAL) Hemoglobin A1c [...] Organization Address City/State/ZIP Code Phon e Number [facility]- [address] [place] [address] [facility] [place] [address] System in [place] [address] documented in this [...] documented as of this encounter Care Teams V Groove Cutter Relationship Specialty Start Date End Date Shayla Alford D.O. PCP - General Internal Medicine 05/22/[address] [place] [address] documented as of this encounter
--- OUTSIDE RECORDS SUMMARY | 2022-05-27 12:01 | XMS_ITS | Encounter Summary ---
:1945 Author Organization [facility] Address [address] [place] [address] Care Team Providers Name Role Phone Shayla Alford D.O. Primary Care Provider [phone] Reason for Visit Reason Comments Care Coordination Follow Up Encounter Details Date Type Department Care Team Description 07/17/2020 Patient Outreach Department of Sruthi Decker [facility] Co ordination Internal Medicine in M, R.N. (Follow Up) [place], [place] [address] [place] [address] Social History Tobacco Use Types Packs/Day [...] do you attend hindu or Never 2021 denominational services? Do you [...] completed or the highest Martin, MEd, BUSINESS SYSTEM CONSULTANT, CAYDEN) degree you have received? Sex [...] provider prior to starting new medications, including swzg-syp-bjrrmch and herbal supplements. PROBLEM SOLVING -Recognize barriers [...] clinic business hours. After clinichours, call Expert press cutter Line for concerning symptoms. Call . Appointment line: For Family Medicine appointments in [place] call [phone] or Internal Medicine appointments [phone]. To reschedule or cancel an appointment with your RN Ring Packer, call or leave a message through the switchboard at [phone]. Nurse Ring Packer: ALLEY Bond. You may call Friday-Friday from 7:30-4:00. Primary Care: Keep regular follow-up appointments with your Primary Care Provider. Call your Care Team during office hours or call the clinic (above numbers). You may also send a message to your Provider or Ring Packer/ Care Team through your Patient Online Services [...] apple juice ? cup cooked cereal ??? [place] ? cup haresh freddy ? cup [...] The patient was instructed to contact the client care representative with any questions or concerns and statedunderstanding [...] documented as of this encounter Care Teams Auxiliary Equipment Operator Relationship Specialty Start Date End Date Shayla Alford D.O. PCP - General Internal Medicine 05/22/20 [address] [place] [phone] documented as of this encounter
--- OUTSIDE RECORDS SUMMARY | 2022-05-27 12:01 | XMS_ITS | Encounter Summary ---
:1945 Author Organization [facility] Address [address] [place] [address] Care Team Providers Name Role Phone Shayla Alford D.OMauro Primary Care Provider [phone] Encounter Details Date Type Department Care Team Description 07/01/2020 Hospital Encounter Department of Alexys Diabete s Mellitus Type 2 With Diabetic Chronic Kidney Disease Hyperglycemic (HCC); Laboratory Medicine Shayla queen High Ris k Medication in [place], D.O. [place] [address] [place] [phone] Social History Tobacco Use [...] do you attend baptist or Never 2021 mosque services? Do you [...] have completed or the highest Martin, MEd, ALGEBRAIST, CAYDEN) degree you have received? Sex Assigned [...] by mouth tabletIndications: daily. 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 As directed per DR capsule shlhhk-naqczxnb-zausyjs Take 1 capsule by 0 10/12/2020 (CREON) mouth as needed for 6,000-19,000-30,[address] capsule kvigjx-kousgwta-vhsqyez Take 1 capsule by 0 10/12/2020 (yroiyf-mdfqcflm-pwwqiks) mouth 3 (three) 6,000-19,000-30,000 Unit times a [...] Name Priority Date/Time Associated Diagnosis Comme nts [place] T4 FREE Routine 07/01/2020 10:01 Results for [...] Kidney the results Disease section. Hyperglycemic (HCC) [place] MICROSOMAL AB EA/TPO Routine 07/01/2020 9:58 R [...] supplements. ??If the result does not [facility] clinical observations, repeat testing after patient [...] [facility] [address] [place] [address] [facility] [place] [address] System in [place] [address] (ABNORMAL) Thyroid Function [place] (07/01/2020 10:01 AM CDT) athologist Signature TSH, Sensitive 7.3 (H) 0.3 - 4.2 07/01/2020 [place] mIU/L 11:35 AM CDT Comment: Biotin has been identified by the capri enriquez as a potential interfering substance. ??Higher concentr ations of biotin may be found in multivitamins, hair/nail supple ments, and workout supplements. ??If the result does not [facility] clinical observations, repeat testing after patient refrains fr om the use of supplements for at least 12 hours. Specimen Anatomical Collection Method Collection Time Receive d Time (Source) Location / / Volume Laterality Blood (Blood, 07/01/2020 10:01 07/01/2020 Venous) AM CDT 10:07 AM CDT Shayla Alford D.O. LAB BLOOD ADD-ON Performing Organization Address City/[facility]/ZIP Code Phon e Number [facility]- [address] [place] [address] [place] [address] System in [place] [address] (ABNORMAL) ALT (Alanine Aminotransferase) (07/01/2020 10:01 AM CDT) [facility] Method Time Signature Alanine 65 (H) 7 [...] Number [facility]- [address] [place] [address] [place] [address] System in [place] [address] AST (Aspartate Aminotransferase) (07/01/2020 10:01 AM CDT) [facility] Method Time Signature Aspartate 38 8 - 48 07/01/2020 [place] Aminotransferase U/L 11:26 AM CDT (AST), P Specimen Anatomical Collection Method Collection Time Receive d Time (Source) Location / / Volume Laterality Blood (Blood, 07/01/2020 10:01 07/01/2020 Venous) AM CDT 10:07 AM CDT Shayla Alford D.O. LAB BLOOD ADD-ON Performing Organization Address City/State/ZIP Code Phon e Number [facility]- [address] [place] [address] [place] [address] System in [place] [address] (ABNORMAL) Hemoglobin A1c (07/01/2020 [...] Number [facility]- [address] [place] [address] [place] [address] System in [place] [address] Thyroperoxidase (TPO) Antibodies, Serum [...] [facility] - [address] [place], [place] [address] [facility] [place] [address] [facility] [address] documented in this encounter Visit Diagnoses Diagnosis Diabetes Mellitus Type 2 With Diabetic C hronic Kidney Disease Hyperglycemic (HCC) High Risk Medication documented in this encounter Additional Health Concerns Assessment Noted Time PHQ-9 Depression Total Score: 18 04/28/2018 11:27 AM C DT documented as of this encounter Care Teams Thermal Engineer Relationship Specialty Start Date End Date Shayla Alford D.O. PCP - General Internal Medicine 05/22/20 [address] [place] [phone] documented as of this encounter
--- OUTSIDE RECORDS SUMMARY | 2022-05-27 12:01 | XMS_ITS | Encounter Summary ---
:1945 Author Organization [facility] Address [address] [place] [address] Care Team Providers Name Role Phone Shayla Alford D.O. Primary Care Provider Encounter Details Date Type Department Care Team Description 06/09/2020 Hospital Encounter Department of [place] Screen ing Examination Laboratory Medicine n, Gianna Mcguire For Viral Disease in [place] [address] [address] [place] [address] Social History Tobacco Use [...] do you attend yarsanism or Never 2021 episcopalian services? Do you [...] have completed or the highest Martin, MEd, SAP BOBJ DEVELOPER, CAYDEN) degree you have received? Sex [...] by mouth tabletIndications: daily. 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 As directed per DR capsule beeezm-leqdfbvf-mpluscf Take 1 capsule by 0 10/12/2020 (CREON) mouth as needed for 6,000-19,000-30,[address] capsule zxlbmk-zawuzymo-txrowye Take 1 capsule by 0 10/12/2020 (nwqire-zngzkmse-xdcqzeq) mouth 3 (three) 6,000-19,000-30,000 Unit times a [...] RNA, V Asymptomatic (06/09/2020 12:34 PM CDT) [facility] Method Time Signature SARS-CoV-2 Swab, 06/09/2020 [...] is performed using the Aptima SARS-CoV-2 assay ([employer] which has received Emergency Use Authori zation (EUA) by the U.S. Food and Drug Administration. Fact sheets for this Emergency Use Autho rization (EUA) assay can be found at the following links: For Healthcare Providers: https://www.[employer] a.gov/media/046615/download For Patients: https://www.fda.gov/media/ 130999/download Specimen Anatomical Collection Method Collection Time Receive d Time (Source) Location / / Volume Laterality Varies 06/09/2020 12:34 06/09/2020 2:18 (Nasopharynx) PM CDT PM CDT Shayla Alford D.O. LAB MICROBIOLOGY - GENERAL ORDERABLES Performing Organization Address City/State/[facility] Phon e Number [facility]- [address] [place] [id number] [place] [address] [place] [address] System [address] documented in this encounter Visit Diagnoses Diagnosis Screening Examination For Viral Disease documented in this encounter Additional Health Concerns Infection Onset Date Last Indicated Resolved Time COVID19 Pending 06/09/2020 06/09/2020 06/09/2020 9:05 PM CDT Assessment Noted Time PHQ-9 Depression Total Score: 18 04/28/2018 11:27 AM C DT documented as of this encounter Care Teams Land Appraiser Relationship Specialty Start Date End Date Shayla Alford D.O. PCP - General Internal Medicine 05/22/20 [address] [place] [address] documented as of this encounter
--- OUTSIDE RECORDS SUMMARY | 2022-05-27 12:01 | XMS_ITS | Encounter Summary ---
:1945 Author Organization [facility] Address [address] [place] [address] Care Team Providers Name Role Phone Shayla Alford D.O. Primary Care Provider [phone] Encounter Details Date Type Department Care Team Description 06/06/2020 Hospital Encounter Department of [place], Personal History Of Laboratory Medicine Rhoda Mims. Malignant Neoplasm Of and Pathology, [address] [facility] in [place], [place] [address] [facility] [address] [place], [place] [phone] (Work) [phone] Social History Tobacco Use Types Packs/Day Years [...] do you attend latter-day or Never 2021 restorationism services? Do you [...] have completed or the highest Martin, MEd, LINE UP MACHINE OPERATOR, CAYDEN) degree you have received? [...] by mouth tabletIndications: daily. 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 As directed per DR capsule hheuea-xfsxgpmc-jgzczuu Take 1 capsule by 0 10/12/2020 (CREON) mouth as needed for 6,000-19,000-30,[address] capsule iwyuwh-ykzyvemi-dahvzcr Take 1 capsule by 0 10/12/2020 (fkehzv-ejrsgawv-ahqxytp) mouth 3 (three) 6,000-19,000-30,000 Unit times a [...] Priority Date/Time Associated Diagnosis Comme nts CYTOLOGY NON-PHOTO GRAPHICS LIBRARIAN Routine 06/06/2020 1:33 PM Personal History O f Results for this (SCHEDULED) CDT Malignant Neoplasm procedure are in Of Bladder the results section. documented in this encounter Results Cytology Non-PHOTO GRAPHICS LIBRARIAN (Scheduled) (06/06/2020 1:33 PM CDT) Component Value Ref Test Analysis Performed At [facility] gist Range Method Time Signature 06/07/2020 DTL 2:47 PM CDT Report Dafne Rodriguez M.D. [id number] 06/07/2020 DTL electronically I verify that I [...] Organization Address City/State/ZIP Code Phon e Number [facility] - [address] [place], [place] [address] [facility] [place] [address] Laboratories-[facility] [address] documented in this encounter Visit Diagnoses Diagnosis Personal History Of Malignant Neoplasm O f Bladder documented in this encounter Additional Health Concerns Assessment Noted Time PHQ-9 Depression Total Score: 18 04/28/2018 11:27 AM C DT documented as of this encounter Care Teams Compensation Coordinator Relationship Specialty Start Date End Date Shayla Alford D.O. PCP - General Internal Medicine 05/22/[address] [address] documented as of this encounter
--- OUTSIDE RECORDS SUMMARY | 2022-05-27 12:02 | XMS_ITS | Encounter Summary ---
:1945 Author Organization [facility] Address [address] [place] [address] Care Team Providers Name Role Phone Chris Billings M.D. Primary Care Provider [phone] Encounter Details Date Type Department Care Team Description 05/09/2020 Hospital Encounter Department of Shlomo Ojeda On Chronic 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); Laboratory Medicine C, FRONT DESK AGENT, Chronic Kidney Disease Stage 3 Glomerular Filtration Rate 30 To 59 (HCC) in [facility] [address] [place] [phone] Social History Tobacco Use Types Packs/Day Years [...] do you attend holiness or Never 2021 gnosticism services? Do you [...] completed or the highest Martin, MEd, LINE SERVICE SUPERVISOR, CAYDEN) degree you have received? Sex [...] by mouth tabletIndications: daily. 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 As directed per DR capsule sbuzxk-yuzbtnfv-fkopicu Take 1 capsule by 0 10/12/2020 (CREON) [...] [facility]- [address] [place] [address] [place] [address] System in [place] [address] (ABNORMAL) Creatinine with Estimated GFR (05/09/2020 10:15 AM CDT) Analysis Performed At [facility] Time Signature Creatinine 2.04 (H) 0.74 - 05/09/2020 [place] 1.35 mg/dL 11:03 AM CDT eGFR-Black/Afri 36 (L) >=60 05/09/2020 [place] can [place] mL/min/BSA 11:03 AM CDT Comment: ----ADDITIONAL INFORMATION---- Estimated GFR calculated using the 2009 CKD_EPI creatinine equation. eGFR Non-Black/ 31 (L) >=60 mL/min/BSA 05/09/2020 11:03 AM CDT [place] Comment: ----ADDITIONAL INFORMATION---- Estimated GFR calculated using the 2009 CKD_EPI creatinine equation. Specimen Anatomical Collection Method Collection Time Receive d Time (Source) Location / / Volume Laterality Blood (Blood, 05/09/2020 10:15 05/09/2020 Venous) AM CDT 10:17 AM CDT Shlomo Ojeda APRN, C.N.P. LAB BLOOD ADD-ON Performing Organization Address City/State/ZIP Code Phon e Number [facility]- [address] [place] [address] [place] [address] System in [place] [address] documented in this encounter Visit Diagnoses Diagnosis Acute On Chronic Combined Systolic (Jean estive) And Diastolic (Congestive) Heart Failure (HCC) Chronic Kidney Disease Stage 3 Glomerula r Filtration Rate 30 To 59 (HCC) documented in this encounter Additional Health Concerns Assessment Noted Time PHQ-9 Depression Total Score: 18 04/28/2018 11:27 AM C DT documented as of this encounter Care Teams Private Sector Executive Relationship Specialty Start Date End Date Chris Billings M.B.B.S., M.D. PCP - General Family Medicine 01/10/20 05/21/[address] [place] [address] [place] [phone] documented as of this encounter
--- OUTSIDE RECORDS SUMMARY | 2022-05-27 12:02 | XMS_ITS | Encounter Summary ---
:1945 Author Organization [facility] Address [address] [place] [address] Care Team Providers Name Role Phone Chris Billings M.D. Primary Care Provider [phone] Reason for Referral MRI/CAT/PET Scan (Routine) - Closed Specialty Diagnoses / Procedures Referred By Contact Refer red To Contact Radiology Diagnoses Effusion Pleural Shayla Alford [facility] Procedures CT Chest without IV Contrast D.O. [address] [place] [phone] Referral ID Status Reason Start Date Expiration Date Visits Requ ested Visits Authorized [id number] Closed 05/16/2020 05/16/2021 1 1 Reason for Visit MRI/CAT/PET Scan (Routine) - Closed Specialty Diagnoses / Procedures Referred By Contact Refer red To Contact Radiology Diagnoses Effusion Pleural Shayla Alford [facility] [place] [facility] Procedures CT Chest without IV Contrast D.O. [address] [place] [phone] Referral ID Status Reason Start Date Expiration Date Visits Requ ested Visits Authorized [id number] Closed 05/16/2020 05/16/2021 1 1 Encounter Details Date Type Department Care Team Description 05/16/2020 Hospital Encounter Department of Charmaine Alford Pleural Radiology in Shayla [place] D. O. [place] [address] [place] [phone] Social History Tobacco Use Types Packs/Day Years [...] you attend roman catholic or Never 2021 spiritism services? Do you [...] have completed or the highest Martin, MEd, SITE PHYSICIAN, CAYDEN) degree you have received? Sex Assigned [...] mouth tabletIndications: daily. 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 As directed per DR capsule qwfezd-inzznxka-xbaakoz Take 1 capsule by 0 10/12/2020 (CREON) [...] as of this encounter Care Teams Field Sampling Technician Relationship Specialty Start Date End Date Chris Billings M.B.B.S., M.D. PCP - General Family Medicine 01/10/20 05/21/[address] [place] [address] [place] [phone] documented as of this encounter
--- OUTSIDE RECORDS SUMMARY | 2022-05-27 12:02 | XMS_ITS | Encounter Summary ---
:1945 Author Organization [facility] Address [address] [place] [address] Care Team Providers Name Role Phone Shayla Alford D.O. Primary Care Provider [phone] Reason for Visit Reason Comments Post Hospital Follow-up Appointment Request (Routine) - Closed Specialty Diagnoses / Procedures Referred By Contact Refer red To Contact Family Medicine Referral ID Status Reason Start Date Expiration Date Visits Requ ested Visits Authorized [id number] Closed 05/18/2020 05/18/2021 1 1 Encounter Details Date Type Department Care Team Description 05/25/2020 Office Visit Department of [facility] Sarath Da Silva O n Chronic Systolic (Congestive) Heart Failure (HCC) (Primary Dx); Medicine, [place] Ojeda M.D. Failure Heart (HCC); Clinic, in [place], [facility] [address] Hypertension Essential Primary; [place], [place] Beat Premature Ventricular; [address] [address] Asthma Extrinsic Moderate (HCC) [place], [place] [phone] [address] (Work) [phone] Social History Tobacco Use Types Packs/Day Years [...] do you attend quaker or Never 2021 buddhism services? Do you [...] have completed or the highest Martin, MEd, SHELLFISH DREDGE OPERATOR, CAYDEN) degree you have received? Sex [...] recent hospitalizations. Patient was initially admitted to [address] on April 28 2020. He had significant fluid overload. He was treated with furosemide diuresis and he improved. He was dismissed on an increased dose of furosemide. It was felt that he would improve in the outpatient environment. He declined further with increased weight and increased dyspnea. He was admitted to [facility] in [place] on May 03. During that hospitalization he [...] 103 kilos. He was subsequently admitted to [facility] and had aggressive diuresis with torsemide. [...] CBC without Differential (05/25/2020 10:42 AM CDT) [facility] gist Method Time Signature Hemoglobin 10.3 [...] Phon e Number [facility]- [address] [place] [address] [place] [facility] [address] [place] [address] System in [place] [address] (ABNORMAL) Basic Metabolic Panel [...] eGFR-Black/Afri 34 (L) >=60 05/25/2020 [place] can [place] mL/min/BSA 1:16 PM CDT Comment: ----ADDITIONAL INFORMATION---- Estimated GFR calculated using the 2009 CKD_EPI creatinine equation. eGFR Non-Black/ 29 (L) >=60 mL/min/BSA 05/25/2020 1:16 PM CDT [place] Comment: ----ADDITIONAL INFORMATION---- Estimated GFR [...] e Number [facility]- [address] [place] [address] [place] [address] System in [place] [address] documented in this encounter Visit Diagnoses Diagnosis Acute On Chronic Systolic (Congestive) H eart Failure (HCC) - Primary Failure Heart (HCC) Hypertension Essential Primary Beat Premature Ventricular Asthma Extrinsic Moderate (HCC) documented in this encounter Additional Health Concerns Assessment Noted Time PHQ-9 Depression Total Score: 18 04/28/2018 11:27 AM C DT documented as of this encounter Care Teams Sewer Connector Relationship Specialty Start Date End Date Shayla Alford D.O. PCP - General Internal Medicine 05/22/[address] [place] [phone] documented as of this encounter
--- OUTSIDE RECORDS SUMMARY | 2022-05-27 12:02 | XMS_ITS | Encounter Summary ---
:1945 Author Organization [facility] Address [address] [place] [address] Care Team Providers Name Role Phone Shayla Alford D.O. Primary Care Provider [phone] Reason for Visit Reason Comments Care Coordination Monthly billing - 2019 Encounter Details Date Type Department Care Team Description 05/29/2020 [facility] A, R.N. (Monthly billing - in [place], [address] [facility] 2019) [place], [place] [address] [address] [place], [place] [phone] (Work) [phone] Social History Tobacco Use Types Packs/Day Years [...] do you attend islam or Never 2021 quaker services? Do you [...] have completed or the highest Martin, MEd, RETAIL EVENT ASSISTANT, CAYDEN) degree you have received? Sex [...] documented as of this encounter Care Teams Writing Center Director Relationship Specialty Start Date End Date Shayla Alford D.O. PCP - General Internal Medicine 05/22/[address] [phone] documented as of this encounter
--- OUTSIDE RECORDS SUMMARY | 2022-05-27 12:02 | XMS_ITS | Encounter Summary ---
:[address] [facility] Address [address] [place] [address] Care Team Providers Name Role Phone Shayla Alford D.O. Primary Care Provider [phone] Encounter Details Date Type Department Care Team Description 05/30/2020 Orders Only Department of [facility], [facility] Heart (HCC) Medicine, [place] Ojeda M.D. (Primary Dx) Clinic, in [place], [facility] [address] [place], [place] [address] [facility] [address] [place], [place] [phone] [address] (Work) [phone] Social History Tobacco Use Types Packs/Day Years [...] do you attend holiness or Never 2021 religion services? Do you [...] have completed or the highest Martin, MEd, GRAPHICS SPECIALIST, CAYDEN) degree you have received? Sex [...] eGFR-Black/Afri 37 (L) >=60 06/02/2020 [place] mL/min/BSA 1:23 PM CDT Comment: ----ADDITIONAL INFORMATION---- Estimated GFR calculated using the 2009 CKD_EPI creatinine equation. eGFR Non-Black/ 32 (L) >=60 mL/min/BSA 06/02/2020 1:23 PM CDT [place]ronesian Comment: ----ADDITIONAL INFORMATION---- Estimated GFR calculated using [...] City/State/ZIP Code Phon e Number [facility]- [address] [place] [address] [place] [address] System in [place] [address] documented in this encounter Visit Diagnoses Diagnosis Failure Heart (HCC) - Primary documented in this encounter Additional Health Concerns Assessment Noted Time PHQ-9 Depression Total Score: 18 04/28/2018 11:27 AM C DT documented as of this encounter Care Teams Architectural Project Manager Relationship Specialty Start Date End Date Shayla Alford D.O. PCP - General Internal Medicine 05/22/[address] [place] [address] documented as of this encounter
--- OUTSIDE RECORDS SUMMARY | 2022-05-27 12:02 | XMS_ITS | Encounter Summary ---
:1945 Author Organization [facility] Address [address] [place] [address] Care Team Providers Name Role Phone Shayla Alford D.O. Primary Care Provider [phone] Reason for Visit Reason Comments Care Coordination Intake Encounter Details Date Type Department Care Team Description 05/12/2020 Patient Outreach Department of Ronda Fernandez Family Medicine, A, R.N. (Intake) [facility], [address] [facility] in [facility] [phone] [place] [address] [place], [place] (Work) [phone] Social History Tobacco Use [...] do you attend spiritism or Never 2021 congregational services? Do you [...] have completed or the highest Martin, MEd, ADDICTION PSYCHIATRIST, CAYDEN) degree you have received? Sex Assigned [...] Use: Currently using the following community services: [place] services. Currently using the following devices/equipment: glucometer [...] our care team phone number and the [facility] seal mixing operator phone number for off-hour contact with the physician home demonstration agent). The patient was encouraged to report any [...] patient was encouraged to contact the RN Photographic Spotter or patient account services with any questions regarding the service. documented in this encounter Plan of Treatment Not on filedocumented as of this encounter Visit Diagnoses Not on filedocumented in this encounter Additional Health Concerns Assessment Noted Time PHQ-9 Depression Total Score: 18 04/28/2018 11:27 AM C DT documented as of this encounter Care Teams Timber Hand Relationship Specialty Start Date End Date Shayla Alford D.O. PCP - General Internal Medicine 05/22/[address] [address] documented as of this encounter
--- OUTSIDE RECORDS SUMMARY | 2022-05-27 12:02 | XMS_ITS | Encounter Summary ---
:1945 Author Organization [facility] Address [address] [place] [address] Care Team Providers Name Role Phone Chris Billings M.D. Primary Care Provider [phone] Encounter Details Date Type Department Care Team Description 05/16/2020 Hospital Encounter Department of [place]erkse Anemia ; Laboratory Medicine n, Gianna Mcguire Chronic Systolic (Congestive) Heart Fail ure (HCC) in [place], [address] [address] [place] [address] Social History Tobacco Use [...] do you attend hindu or Never 2021 mandaen services? Do you [...] have completed or the highest Martin, MEd, PUBLISHING SPECIALIST, CAYDEN) degree you have received? Sex [...] by mouth tabletIndications: daily. 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 As directed per capsule ixravm-dukgtnol-owzocpc Take 1 capsule by 0 10/12/2020 (CREON) [...] eGFR-Black/Afri 34 (L) >=60 05/16/2020 [place] can [place] mL/min/BSA 3:37 PM CDT Comment: ----ADDITIONAL INFORMATION---- Estimated GFR calculated using the 2009 CKD_EPI creatinine equation. eGFR Non-Black/ 29 (L) >=60 mL/min/BSA 05/16/2020 3:37 PM CDT [place] Comment: ----ADDITIONAL INFORMATION---- Estimated GFR calculated using [...] Phon e Number [facility]- [address] [place] [address] [place] [address] System in [place] [address] (ABNORMAL) CBC with Differential, Blood (05/16/2020 1:51 PM CDT) [facility] gist Method Time Signature Hemoglobin 10.2 (L) [...] e Number [facility]- [address] [place] [address] [place] [address] System in [place] [address] [facility] documented in this encounter Visit Diagnoses Diagnosis Anemia Chronic Systolic (Congestive) Heart Fail ure (HCC) documented in this encounter Additional Health Concerns Assessment Noted Time PHQ-9 Depression Total Score: 18 04/28/2018 11:27 AM C DT documented as of this encounter Care Teams Waistline Joiner Overlock Relationship Specialty Start Date End Date Chris Billings M.B.BRhoda Walker. PCP - General Family Medicine 01/10/20 05/21/[address] [place] [address] [place] [phone] documented as of this encounter
--- OUTSIDE RECORDS SUMMARY | 2022-05-27 12:02 | XMS_ITS | Encounter Summary ---
:[address] [facility] Address [address] [place] [address] Care Team Providers Name Role Phone Shayla Alford D.O. Primary Care Provider [phone] Reason for Visit Reason Comments COVDICKSON Nurse Line Encounter Details Date Type Department Care Team Description 05/23/2020 Clinical Division of Ailyn Sims se Line Communication Pulmonary Medicine Pato Duque in [place], [address] [place] [address] [address] [facility] [address] [place], [place] [phone] (Work) [phone] Social History Tobacco Use Types Packs/Day Years [...] do you attend presybeterian or Never 2021 rastafari services? Do you [...] completed or the highest Martin, MEd, FRAME WIRER, CAYDEN) degree you have received? Sex Assigned at Date Recorded Male 05/21/2018 2:34 PM CDT documented as of this encounter Miscellaneous Notes Telephone Encounter - Zoë Yi Neto - 05/23/2020 10:28 AM CDT (RST and [facility] locations only: If the patient is not having symptoms and is requesting COVID-19 Nasal Swab testing only, use the process listed in the COVID-19 Patient Requesting COVID PCR Test OTG COVID-19 [place] Patient Requesting COVID PCR Test). 1. Do [...] de santiago appt office/vl Scheduling Contact Number: [phone] documented in this encounter Plan of Treatment Not on filedocumented as of this encounter Visit Diagnoses Not on filedocumented in this encounter Additional Health Concerns Assessment Noted Time PHQ-9 Depression Total Score: 18 04/28/2018 11:27 AM C DT documented as of this encounter Care Teams Hvac Lead Relationship Specialty Start Date End Date Shayla Alford D.O. PCP - General Internal Medicine 05/22/[address] [address] documented as of this encounter
--- OUTSIDE RECORDS SUMMARY | 2022-05-27 12:02 | XMS_ITS | Encounter Summary ---
:1945 Author Organization [facility] Address [address] [place] [address] Care Team Providers Name Role Phone Shayla Alford D.O. Primary Care Provider [phone] Reason for Visit Reason Comments Care Coordination Encounter Details Date Type Department Care Team Description 05/31/2020 Patient Outreach [facility] Internal Medicine in [place], [place] [address] [facility] [address] [place] [phone] Social History Tobacco Use Types Packs/Day Years [...] do you attend hindu or Never 2021 baptist services? Do you [...] have completed or the highest Martin, MEd, STENCILING MACHINE TENDER, CAYDEN) degree you have received? [...] as of this encounter Care Teams In Home Sales Consultant Relationship Specialty Start Date End Date Shayla Alford D.O. PCP - General Internal Medicine 05/22/20 [address] [place] [address] documented as of this encounter
--- OUTSIDE RECORDS SUMMARY | 2022-05-27 12:02 | XMS_ITS | Encounter Summary ---
:1945 Author Organization [facility] Address [address] [place] [address] Care Team Providers Name Role Phone Shayla Alford D.O. Primary Care Provider [phone] Encounter Details Date Type Department Care Team Description 05/24/2020 Episode Changes Department of [facility] Ronda Fernandez Medicine, [facility], R.NMauro in [place], [place] [address] [facility] [address] [place] [address] [phone] Social History Tobacco Use Types Packs/Day Years [...] do you attend christianity or Never 2021 advent services? Do you [...] have completed or the highest Martin, Sirena, INTER FOLD ROLL CUTTER, CAYDEN) degree you have received? Sex Assigned at Date Recorded Male 05/21/2018 2:34 PM CDT documented as of this encounter Plan of Treatment Not on filedocumented as of this encounter Visit Diagnoses Not on filedocumented in this encounter Additional Health Concerns Assessment Noted Time PHQ-9 Depression Total Score: 18 04/28/2018 11:27 AM C DT documented as of this encounter Care Teams Mds Nurse Relationship Specialty Start Date End Date Shayla Alford D.O. PCP - General Internal Medicine 05/22/[address] [address] documented as of this encounter
--- OUTSIDE RECORDS SUMMARY | 2022-05-27 12:02 | XMS_ITS | Encounter Summary ---
:1945 Author Organization [facility] Address [address] [place] [address] Care Team Providers Name Role Phone Chris Billings M.D. Primary Care Provider [phone] Reason for Visit Reason Comments Post Hospital Follow-up Encounter Details Date Type Department Care Team Description 05/18/2020 Clinical Communication Department of [facility] Family MedicineChris I., [facility] in [address] [address] [place], [place] [phone] [address] (Work) [phone] Social History Tobacco Use Types Packs/Day Years [...] do you attend religion or Never 2021 buddhist services? Do you [...] completed or the highest Martin, MEd, MANAGER HEAVY EQUIPMENT, CAYDEN) degree you have received? Sex Assigned [...] failure Appt 05/[address] Da Silva *Commercial Airline Pilot is in [facility] documented in this encounter Plan of Treatment Not on filedocumented as of this encounter Visit Diagnoses Not on filedocumented in this encounter Additional Health Concerns Assessment Noted Time PHQ-9 Depression Total Score: 18 04/28/2018 11:27 AM C DT documented as of this encounter Care Teams Coin Machine Collector Supervisor Relationship Specialty Start Date End Date Chris Billings M.B.B.S., M.D. PCP - General Family Medicine 01/10/20 05/21/[address] [place] [address] [place] [phone] documented as of this encounter
--- OUTSIDE RECORDS SUMMARY | 2022-05-27 12:02 | XMS_ITS | Encounter Summary ---
:1945 Author Organization [facility] Address [address] [place] [address] Care Team Providers Name Role Phone Shayla Alford D.O. Primary Care Provider [phone] Reason for Visit Reason Comments Care Coordination Follow up Encounter Details Date Type Department Care Team Description 05/26/2020 Patient Outreach [facility] Internal Medicine A, R.N. (Follow up) in [place], [facility] [address] [place], [place] [address] [address] [place], [place] [phone] [address] (Work) [phone] Social History Tobacco Use Types Packs/Day Years [...] do you attend mu-ism or Never 2021 amish services? Do you [...] completed or the highest Martin, MEd, FOOD CHECKERS AND CASHIERS SUPERVISOR, CAYDEN) degree you have received? Sex Assigned at Date Recorded Male 05/21/2018 2:34 PM CDT documented as of this encounter Progress Notes Ronda Fernandez RShama. - 05/26/2020 3:39 PM CDT SUBJECTIVE REASON FOR VISIT Adult Medical Care Coordination Follow-Up HISTORY OF PRESENT ILLNESS Jonnathan Costa reports he had 1 hospitalizations since last contact. Admitted to [facility] in [place], [place]. Summary of the [...] to get up if you do fall 0038-87 were mailed to the patient on this [...] side, he will discuss this with his wire transfer clerk in [place] on June 06. No concerns at this [...] clinic business hours. After clinichours, call Expert fire engine operator Line for concerning symptoms. Call . Appointment line: For Family Medicine appointments in [place] call [phone] or Internal Medicine appointments [phone]. To reschedule or cancel an appointment with your RN Fish Culturist, call or leave a message through the switchboard at [phone]. Nurse Fish Culturist: ALLEY Bond. You may call Friday-Friday from 7:30-4:00. Primary Care: Keep regular follow-up appointments with your Primary Care Provider. Call your Care Team during office hours or call the clinic (above numbers). You may also send a message to your Provider or Fish Culturist/ Care Team through your Patient Online Services [...] The patient was instructed to contact the health care social worker with any questions or concerns and statedunderstanding [...] able to connect with the primary care team/health care social worker when the illnessworsened because I'm not sure [...] documented as of this encounter Care Teams Chemical Equipment Controller Relationship Specialty Start Date End Date Shayla Alford D.O. PCP - General Internal Medicine 05/22/[address] [address] documented as of this encounter
--- OUTSIDE RECORDS SUMMARY | 2022-05-27 12:02 | XMS_ITS | Encounter Summary ---
:1945 Author Organization [facility] Address [address] [place] [address] Care Team Providers Name Role Phone Chris Billings M.D. Primary Care Provider [phone] Reason for Visit Reason Comments Post Hospital Follow-up OR 05/06/20 @ 1707 Encounter Details Date Type Department Care Team Description 05/08/2020 Clinical Department of Ronda Fernandez Post [facility] ching Communication Family Medicine, A, R.N. Follow-up ([facility], 200 [facility] 05/06/20 @ 1707) in [facility] [address] [place] [address] [place], [place] (Work) [phone] Social History Tobacco Use [...] do you attend congregation or Never 2021 episcopalian services? Do you [...] completed or the highest Martin, MEd, TOOL MAKER APPRENTICE, CAYDEN) degree you have received? Sex [...] to a telephonic visit by the RN Rubber Gasket Inspector Trimmer later this week. All questions answered. Telephone [...] they see those symptoms. 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 [place] with his , and currently has guests visiting so part of my conversation is with his Diallo. Checking blood sugars at least 3 times a day. Patient and his are currently paneled with a PCP in [place], but say it is very difficult to get in to see him or even talk to him on the phone. There is no openings for IM providers at [facility] in [place].They are hoping to establish with an IM provider in [place] as soon as they can get the provider at their upcoming [facility] to refer them. Follow-up Appointment PCP Follow-up [...] as of this encounter Care Teams Water Service Dispatcher Relationship Specialty Start Date End Date Chris Billings M.B.B.S., M.D. PCP - General Family Medicine 01/10/20 05/21/[address] [place] [address] documented as of this encounter
--- OUTSIDE RECORDS SUMMARY | 2022-05-27 12:02 | XMS_ITS | Encounter Summary ---
:1945 Author Organization [facility] Address [address] [place] [address] Care Team Providers Name Role Phone Chris Billings M.D. Primary Care Provider [phone] Reason for Referral Outpatient (Routine) - Closed Specialty Diagnoses / Procedures Referred By Contact Refer red To Contact Pulmonary Medicine Diagnoses Asthma Extrinsic Moderate (HCC) Chronic Systolic (Congestive) Heart Failure (HCC) Effusion Pleural Dyspnea Multifactorial [facility] Shayla D.Sabrina [address] [place] [phone] Referral ID Status Reason Start Date Expiration Date Visits V isits Requested Authorized [id number] Closed Specialty 05/16/2020 05/16/2021 1 1 Services Required MRI/CAT/PET Scan (Routine) - Closed Specialty Diagnoses / Procedures Referred By Contact Refer red To Contact Radiology Diagnoses Effusion Pleural Shayla Alford [facility] Procedures CT Chest without IV Contrast D.O. [address] [place] [phone] Referral ID Status Reason Start Date Expiration Date Visits Requ ested Visits Authorized [id number] Closed 05/16/2020 05/16/2021 1 1 Outpatient (Routine) - Closed Specialty Diagnoses / Referred By Contact Referred To Contact Procedures Cardiovascular Diseases / Diagnoses Chronic Systolic (Congestive) Heart Failure (HCC) Enmanuel Alford [facility] Cardiovascular Disease Tulio Mcguire [address] [place] [address] Referral ID Status Reason Start Date Expiration Date Visits Requ ested Visits Authorized [id number] Closed 05/16/2020 05/16/2021 1 1 Reason for Visit Reason Comments Post Hospital Follow-up Shortness of Breath Fatigue Blood sugar Discuss Other Balance issues Sleeping Problem Terrrible flucuations with s leecorazon Appointment Request (Routine) - Closed Specialty Diagnoses / Procedures Referred By Contact Refer red To Contact Family Medicine Referral ID Status Reason Start Date Expiration Date Visits Requ ested Visits Authorized [id number] Closed 05/05/2020 05/05/2021 1 1 Encounter Details Date Type Department Care Team Description 05/16/2020 Office Visit Department of Rocío Dyspnea Mul tifactorial (Primary Dx); Internal Medicine in , Gianna Mcguire Asthma Extrinsic Moderate (HCC); [place], [place] [address] Chronic Systolic (Congestive) Heart Fail ure (HCC); [address] [place], [place] Effusion Pleural; [place] [address] Anemia [address] Social History Tobacco Use Types [...] do you attend tenriism or Never 2021 oriental orthodox services? Do you belong to any clubs or No 10/09/2021 organizations such as tenriism groups, unions, fraAnchor™ or athletic groups, or school groups? How [...] have completed or the highest Martin, MEd, DUKEY RIDER, CAYDEN) degree you have received? Sex [...] problems. The patient use [facility] in [place], and has not been seen by myself [...] problems. The patient use early doctors in [place], and has not been seen by myself [...] (Congestive) Heart 0 05/16/2020 consult (clinic) Failure ([facility]) (Approxima te), Expires: 05/16/2023 Pulmonary Medicine - Outpatient Routine Asthma Extrinsic Exp ected: General consult Referral Moderate ([facility]) 05/17/2020, (clinic) Chronic Systolic Expires: (Congestive) Heart 3 Failure ([facility]) Effusion Pleural Dyspnea Multifactorial documented as of [...] Signature VC MAX PRE 4.67 L 06/15/2020 [facility] 9:12 AM CDT SU[address] FVC 4.67 L 06/15/2020 [facility] 9:12 AM CDT SUITE FEV1 3.31 L 06/15/2020 [facility] 9:12 AM CDT SUITE FEV1/FVC 70.90 % 06/15/2020 [facility] 9:12 AM CDT SUITE KGE81-83% 2.26 L/s 06/15/2020 [facility] 9:12 AM CDT SUITE PEF PRE 7.72 L/s 06/15/2020 [facility] 9:12 AM CDT SUITE FET PRE 7.95 sec 06/15/2020 [facility] 9:12 AM CDT SUITE DLCO 14.95 ml/(min*mm 06/15/2020 [facility] Hg) 9:12 AM CDT SUITE DLCOc 17.52 ml/(min*mm 06/15/2020 [facility] Hg) 9:12 AM CDT SUITE HB 10.30 g(Hb)/dL 06/15/2020 [facility] 9:12 AM CDT SUITE VA 7.30 L 06/15/2020 [facility] 9:12 AM CDT SUITE N1BorJtru 98.00 % 06/15/2020 [facility] 9:12 AM CDT SUITE PulseRest 42.00 1/min 06/15/2020 [facility] 9:12 AM CDT SUITE P6KpcVavv 97.00 % 06/15/2020 [facility] 9:12 AM CDT SUITE PulseExer 61.00 [...] AM CDT SUITE FEV1% 99.73 % 06/15/2020 [facility] 9:12 AM CDT SUITE % PRED 95.24 % 06/15/2020 [facility] FEV1/FVC 9:12 AM CDT SUITE % PRED FEF 97.12 % 06/15/2020 [facility] 25-75% 9:12 AM CDT SUITE % PRED PEF 86.66 % 06/15/2020 [facility] 9:12 AM CDT SUITE PRED VC MAX 4.50 L 06/15/2020 [facility] 9:12 AM CDT SUITE PRED FVC 4.50 L 06/15/2020 [facility] 9:12 AM CDT SUITE PRED FEV 1 3.32 L 06/15/2020 [facility] 9:12 AM CDT SUITE PRED FEV1/FVC 74.44 % 06/15/2020 [facility] 9:12 AM CDT SUITE PRED FEF 2.33 L/s 06/15/2020 [facility] 25-75% 9:12 AM CDT SUITE PRED PEF 8.91 L/s 06/15/2020 [facility] 9:12 AM CDT SUITE Specimen (Source) Anatomical Collection Method Collection Time Re ceived Time Location / / Volume Laterality 06/14/2020 1:25 PM CDT Narrative This result has an attachment that is no t available. Shayla Alford D.O. PFT ORDERABLES Performing Organization Address City/State/ZIP Code Phon e Number [facility] NA (ABNORMAL) CBC with Differential, Blood (05/16/2020 1:51 PM CDT) [facility] gist Method Time Signature Hemoglobin 10.2 [...] Code Phon e Number [facility]- [address], [place] [address] [place] [address] System in [place] [address] [facility] (ABNORMAL) Basic Metabolic Panel (05/16/2020 1:51 [...] eGFR-Black/Afri 34 (L) >=60 05/16/2020 [facility] [place] mL/min/BSA 3:37 PM CDT Comment: ----ADDITIONAL INFORMATION---- Estimated GFR calculated using the 2009 CKD_EPI creatinine equation. eGFR Non-Black/ 29 (L) >=60 mL/min/BSA 05/16/2020 3:37 PM CDT [facility] [place] Comment: ----ADDITIONAL INFORMATION---- Estimated GFR [...] Code Phon e Number [facility]- [address] [place] [address] [place] [address] System in [place] [address] Chest without IV [...] documented as of this encounter Care Teams Consulting Database Administrator Relationship Specialty Start Date End Date Chris Billings M.B.B.S., M.D. PCP - General Family Medicine 01/10/20 05/21/[address] [facility] [address] [place] [phone] documented as of this encounter
--- OUTSIDE RECORDS SUMMARY | 2022-05-27 12:02 | XMS_ITS | Encounter Summary ---
:1945 Author Organization [facility] Address [address] [place] [address] Care Team Providers Name Role Phone Chris Billings M.D. Primary Care Provider [phone] Encounter Details Date Type Department Care Team Description 05/15/2020 Episode Changes Department of [facility] Ronda Fernandez, Medicine, [facility], R.N. in [place], [place] [address] [facility] [address] [place] [address] [phone] Social History Tobacco Use Types Packs/Day Years [...] do you attend jewish or Never 2021 church services? Do you [...] completed or the highest Martin, MEd, OBSTETRICS GYNECOLOGY MD, CAYDEN) degree you have received? Sex Assigned at Date Recorded Male 05/21/2018 2:34 PM CDT documented as of this encounter Plan of Treatment Not on filedocumented as of this encounter Visit Diagnoses Not on filedocumented in this encounter Additional Health Concerns Assessment Noted Time PHQ-9 Depression Total Score: 18 04/28/2018 11:27 AM C DT documented as of this encounter Care Teams Cadmium Liquor Maker Relationship Specialty Start Date End Date Chris Billings M.B.BMauroSMauro, M.Coleman. PCP - General Family Medicine 01/10/20 05/21/[address] [place] [address] [place] [address] documented as of this encounter
--- OUTSIDE RECORDS SUMMARY | 2022-05-27 12:02 | XMS_ITS | Encounter Summary ---
:1945 Author Organization [facility] Address [address] [place] [address] Care Team Providers Name Role Phone Shayla Alford D.O. Primary Care Provider [phone] Encounter Details Date Type Department Care Team Description 05/25/2020 Hospital Encounter Department of Prateek Da Silva Essential Primary; Laboratory Medicine Pato Ojeda Failure Heart (HCC) in [place], [address] JAMIE Dixon [place], [place] [address] [facility] [place] [address] [place], [place] [phone] [address] (Work) [phone] Social History Tobacco Use Types Packs/Day Years [...] do you attend jain or Never 2021 worship services? Do you [...] completed or the highest Martin, MEd, DIRECTOR OF OPERATIONS, CAYDEN) degree you have received? Sex Assigned [...] by mouth tabletIndications: daily. 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 As directed per DR capsule tfihty-bozuokon-jxlrunt Take 1 capsule by 0 10/12/2020 ([facility]) mouth as needed for 6,000-19,000-30,[address] capsule wtdknq-hxpofeff-zljilnc Take 1 capsule by 0 10/12/2020 (mttcbq-tikrzfiu-uhcsfjw) mouth 3 (three) 6,000-19,000-30,000 Unit times a [...] CBC without Differential (05/25/2020 10:42 AM CDT) [facility] gist Method Time Signature Hemoglobin 10.3 (L) [...] Organization Address City/State/ZIP Code Phon e Number [facility]- [address] [place] [address] [facility] [address] [place] [address] System in [place] [address] (ABNORMAL) Basic Metabolic Panel [...] eGFR-Black/Afri 34 (L) >=60 05/25/2020 [place] [facility] [place] mL/min/BSA 1:16 PM CDT Comment: ----ADDITIONAL INFORMATION---- Estimated GFR calculated using the 2009 CKD_EPI creatinine equation. eGFR Non-Black/ 29 (L) >=60 mL/min/BSA 05/25/2020 1:16 PM CDT [facility] [place] Comment: ----ADDITIONAL INFORMATION---- Estimated GFR calculated using [...] Organization Address City/State/ZIP Code Phon e Number [facility]- [address] [place] [address] [place] [address] System in [place] [address] documented in this encounter Visit Diagnoses Diagnosis Hypertension Essential Primary Failure Heart (HCC) documented in this encounter Additional Health Concerns Assessment Noted Time PHQ-9 Depression Total Score: 18 04/28/2018 11:27 AM C DT documented as of this encounter Care Teams Community Health Advisor Relationship Specialty Start Date End Date Shayla Alford D.O. PCP - General Internal Medicine 05/22/[address] [place] [address] documented as of this encounter
--- OUTSIDE RECORDS SUMMARY | 2022-05-27 12:02 | XMS_ITS | Encounter Summary ---
:1945 Author Organization [facility] Address [address] [place] [address] Care Team Providers Name Role Phone Shayla Alford D.O. Primary Care Provider [phone] Reason for Visit Reason Comments Pre-visit Testing Orders Encounter Details Date Type Department Care Team Description 05/17/2020 Clinical Department of Cristina Pre-visit Test ing Communication Cardiovascular Manuel Barber, Orders Medicine in [place], [place] [address] [facility] [address] [place] [address] [phone] Social History Tobacco Use Types Packs/Day Years [...] do you attend mormonism or Never 2021 restoration services? Do you [...] have completed or the highest Martin, MEd, MARBLE CUTTER, CAYDEN) degree you have received? Sex [...] This patient is being referred from the [facility] and was recently hospitalized last week. [...] as of this encounter Care Teams Food Safety Officer Relationship Specialty Start Date End Date Shayla Alford D.O. PCP - General Internal Medicine 05/22/200 [address], [place] [address] documented as of this encounter
--- OUTSIDE RECORDS SUMMARY | 2022-05-27 12:02 | XMS_ITS | Encounter Summary ---
:1945 Author Organization [facility] Address [address] [place] [address] Care Team Providers Name Role Phone Sahyla Alford D.O. Primary Care Provider [phone] Encounter Details Date Type Department Care Team Description 05/30/2020 Clinical Communication Department of [facility], Hickorypam Ojeda M.D. [facility], [facility], [facility] [address] [place], [place] [address] [facility] [address] [place], [place] [phone] [address] (Work) [phone] Social History Tobacco Use Types Packs/Day Years [...] do you attend sikhism or Never 2021 yazdanism services? Do you [...] have completed or the highest Martin, MEd, DEPUTY DIRECTOR, CAYDEN) degree you have received? Sex [...] documented as of this encounter Care Teams Nephrologist Relationship Specialty Start Date End Date Shayla Alford D.O. PCP - General Internal Medicine 05/22/[address] [phone] documented as of this encounter
--- OUTSIDE RECORDS SUMMARY | 2022-05-27 12:02 | XMS_ITS | Encounter Summary ---
:1945 Author Organization [facility] Address [address] [place] [address] Care Team Providers Name Role Phone Shayla Alford D.OMauro Primary Care Provider [phone] Reason for Visit Reason Comments Pre-visit Testing Orders orders Encounter Details Date Type Department Care Team Description 05/17/2020 Clinical Communication Department of Alexys Pre -visit Testing Internal Medicine enShayla, Orders (or ders) [facility] [place] [address] [place] [phone] Social History Tobacco Use Types Packs/Day [...] do you attend restorationist or Never 2021 congregation services? Do you [...] completed or the highest Martin, MEd, BILLBOARD POSTER HELPER, CAYDEN) degree you have received? Sex Assigned at Date Recorded Male 05/21/2018 2:34 PM CDT documented as of this encounter Miscellaneous Notes Telephone Encounter - Shayla Alford D.O. - 05/19/2020 10:08 AM CDT I can't order a covid test .. there is no swab order available to us in [place] in the [employer] system.The physician needing the test can call a testing center and place a verbal order Telephone Encounter - Patria Lyles - 05/18/2020 4:00 PM CDT Good afternoon, [facility] requires covid testing to be done at a [facility] facility. We will need orders for covid testing. Thank you. Telephone Encounter - Shayla Alford D.O. - 05/18/2020 2:11 PM CDT Completed, COVID tests already done on [facility] and negative Telephone Encounter - Patria Lyles - 05/17/2020 11:35 AM CDT Good morning, You are referring patient to [facility] for [facility]. There are pre requisite orders for testing that also need to be ordered. A Exhaled Nitric Oxide (oral), Pulmonary Function test, and a Rhinoscopy, and covid swab tests. Please order for [facility]. Thank you. documented in this encounter Plan of Treatment Not on filedocumented as of this encounter Visit Diagnoses Not on filedocumented in this encounter Additional Health Concerns Assessment Noted Time PHQ-9 Depression Total Score: 18 04/28/2018 11:27 AM C DT documented as of this encounter Care Teams Department Sales Manager Relationship Specialty Start Date End Date Shayla Alford D.O. PCP - General Internal Medicine 05/22/20 [address] [place] [phone] documented as of this encounter
--- OUTSIDE RECORDS SUMMARY | 2022-05-27 12:02 | XMS_ITS | Encounter Summary ---
:1945 Author Organization [facility] Address [address] [place] [address] Care Team Providers Name Role Phone Chris Billings M.D. Primary Care Provider [phone] Encounter Details Date Type Department Care Team Description 05/18/2020 Hospital Encounter Department of Waldemar Poon Eff usion Pleural Radiology in M.DMauro [place], [place] [address] [place], [place] [phone] Social History Tobacco Use Types Packs/Day [...] do you attend voodoo or Never 2021 religion services? Do you [...] have completed or the highest Martin, MEd, GLAZE MAKER, CAYDEN) degree you have received? Sex [...] by mouth tabletIndications: daily. 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 As directed per DR capsule bsejhj-hmftydik-yxilwzc Take 1 capsule by 0 10/12/2020 (CREON) [...] documented as of this encounter Care Teams Lab Analyst Relationship Specialty Start Date End Date Chris Billings M.B.B.S., M.D. PCP - General Family Medicine 01/10/20 05/21/[address] [place] [address] [place] [address] documented as of this encounter
--- OUTSIDE RECORDS SUMMARY | 2022-05-27 12:02 | XMS_ITS | Encounter Summary ---
:1945 Author Organization [facility] Address [address] [place] [address] Care Team Providers Name Role Phone Shayla Alford D.OMauro Primary Care Provider [phone] Reason for Visit Reason Comments Pulmonary Consult & tests Encounter Details Date Type Department Care Team Description 05/22/2020 Clinical Communication Department of Alexys [facility] Consult & Internal Medicine enShayla, tests in [facility] [address] [place] [phone] Social History Tobacco Use [...] do you attend holiness or Never 2021 yazidism services? Do you [...] have completed or the highest Martin, MEd, PRESSROOM FOREMAN, CAYDEN) degree you have received? Sex Assigned at Date Recorded Male 05/21/2018 2:34 PM CDT documented as of this encounter Miscellaneous Notes Telephone Encounter - Coco Luque, CMauroMMauroAMauro - 05/23/2020 10:08 AM CDT Spoke to patient, he did not refuse to make an appt with pulmonary, he [place] I Called over to [place] and they are reinstating the order and [...] me back in follow-up in the clinic. [facility] scheduling, please do not cancel the referral. [...] may contactour Ancillary Testing Services back at [phone] and we will reinstate the order at that time. Sincerely, [facility] Anc[facility] Testing Services documented in this encounter Plan of Treatment Not on filedocumented as of this encounter Visit Diagnoses Not on filedocumented in this encounter Additional Health Concerns Infection Onset Date Last Indicated Resolved Time COVID19 Pending 06/09/2020 06/09/2020 06/09/2020 9:05 PM CDT Assessment Noted Time PHQ-9 Depression Total Score: 18 04/28/2018 11:27 AM C DT documented as of this encounter Care Teams Carpenter Mate Relationship Specialty Start Date End Date Shayla Alford D.O. PCP - General Internal Medicine 05/22/[address] [phone] documented as of this encounter
--- OUTSIDE RECORDS SUMMARY | 2022-05-27 12:03 | XMS_ITS | Encounter Summary ---
:1945 Author Organization [facility] Address [address] [place] [address] Care Team Providers Name Role Phone Chris Billings M.D. Primary Care Provider [phone] Reason for Visit Reason Comments Post Hospital Follow-up Encounter Details Date Type Department Care Team Description 05/05/2020 Clinical Communication Department of [facility] MedicineRusty M.D. Follow-up [facility], [address] in [place], [place] [address] [address] [place], [place] [phone] (Work) [phone] Social History Tobacco Use Types Packs/Day Years [...] do you attend gnosticist or Never 2021 roman catholic services? Do [...] have completed or the highest Martin, MEd, BRIDGE CONTRACTOR, CAYDEN) degree you have received? Sex Assigned at Date Recorded Male 05/21/2018 2:34 PM CDT documented as of this encounter Miscellaneous Notes Telephone Encounter - Sruthi Decker R.N. - 05/08/2020 8:10 AM CDT Call completed by Adult Medical care Coordination Telephone Encounter - Gloria Adams - 05/05/2020 1:50 PM CDT Hospital: [facility] Diagnosis: heart failure Discharge date: 05/07 When [...] as of this encounter Care Teams Solar Sales Specialist Relationship Specialty Start Date End Date Chris Billings M.B.B.S., M.D. PCP - General Family Medicine 01/10/20 05/21/[address] [place] [address] Teresa [place] se[place] [phone] documented as of this encounter
--- OUTSIDE RECORDS SUMMARY | 2022-05-27 12:03 | XMS_ITS | Encounter Summary ---
:[address] [facility] Address [address] [place] [address] Care Team Providers Name Role Phone Chris Billings M.D. Primary Care Provider [phone] Reason for Referral Outpatient (Routine) - Closed Specialty Diagnoses / Procedures Referred By Contact Refer red To Contact Diagnoses Bradycardia Shlomo Ojeda APRN, [facility] [place] Procedures ECG Heart rhythm monitor (Holter) C.N.P. [address] [place] [phone] Referral ID Status Reason Start Date Expiration Date Visits Requ ested Visits Authorized [id number] Closed 05/01/2020 05/01/2021 1 1 Reason for Visit Outpatient (Routine) - Closed Specialty Diagnoses / Procedures Referred By Contact Refer red To Contact Diagnoses Bradycardia Shlomo Ojeda APRN, [facility] [place] Procedures ECG Heart rhythm monitor (Holter) C.N.P. [address] [place] [phone] Referral ID Status Reason Start Date Expiration Date Visits Requ ested Visits Authorized [id number] Closed 05/01/2020 05/01/2021 1 1 Encounter Details Date Type Department Care Team Description 05/01/2020 Hospital Encounter Department of Shlomo Ojeda Brady cardia Cardiovascular Diseases in [place]ED[place], C.N.P. [place], [place] [address] [place], [place] [phone] Social History Tobacco Use Types Packs/Day Years [...] do you attend mandaen or Never 2021 yarsanism services? Do you [...] have completed or the highest Martin, MEd, STOVE MECHANIC, CAYDEN) degree you have received? Sex [...] by mouth tabletIndications: daily. 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 As directed per DR capsule umqbqc-kvojkczj-rcohtkz Take 1 capsule by 0 10/12/2020 (CREON) [...] PM Bradycardia Re sults for this CLINIC SCIENCE LIAISON CDT procedure are in the results section. documented in this encounter Results HOLTER MONITOR - IN CLINIC SCIENCE LIAISON (05/01/2020 4:03 PM CDT) [facility] Method Time Signature AF Count 0 count HOLTER SENTINEL Recording Date HOLTER SENTINEL VE Percent 33 percent HOLTER Beats SENTINEL Max Heart Rate 94 bpm HOLTER SENTINEL Max Heart Rate [id number] HOLTER Time SENTINEL Tachycardia 0 count HOLTER Runs SENTINEL VT Runs 21 count HOLTER SENTINEL VE Max Per [id number] HOLTER Hour Time SENTINEL SVE Max Per 19 count HOLTER Hour SENTINEL VT Longest 4 beats HOLTER SENTINEL SVE Percent 0 percent HOLTER Beats SENTINEL VT Max Rate [id number] HOLTER Time SENTINEL Bradycardia 0 count HOLTER Runs SENTINEL Min Heart Rate 60 bpm HOLTER SENTINEL Holter Pauses 0 count HOLTER SENTINEL SVT Runs 0 count HOLTER SENTINEL VT Longest [id number] HOLTER Time SENTINEL Min Heart Rate 82403703424325 HOLTER Time SENTINEL VE Total Beats 33,762 count HOLTER SENTINEL SVE Total 180 count HOLTER Beats SENTINEL Analysis Date 20,200,805 HOLTER SENTINEL VE Max Per 1,903 count HOLTER Hour SENTINEL Mean Heart 70 bpm HOLTER Rate SENTINEL VT Max Rate 134 bpm HOLTER SENTINEL SVE Max Per [id number] HOLTER Hour Time SENTINEL Specimen (Source) Anatomical [...] of this encounter Care Teams Dining Room Captain Relationship Specialty Start Date End Date Chris Billings M.B.B.S., M.D. PCP - General Family Medicine 01/10/20 05/21/[address] [place] [address] [place] [phone] documented as of this encounter
--- OUTSIDE RECORDS SUMMARY | 2022-05-27 12:03 | XMS_ITS | Encounter Summary ---
:1945 Author Organization [facility] Address [address] [place] [address] Care Team Providers Name Role Phone Chris Billings M.D. Primary Care Provider [phone] Reason for Visit Reason Comments COVID Nurse Line Encounter Details Date Type Department Care Team Description 04/28/2020 Nurse Triage Department of [facility] [place], DHRUV Santana Nurse Line Medicine, [facility] in [place], [place] [address] [facility] [address] [place] [phone] Social History Tobacco Use Types Packs/Day Years [...] do you attend congregation or Never 2021 jehovah's witness services? Do [...] have completed or the highest Martin, MEd, EVENT SPECIALIST FOOD DEMONSTRATOR, CAYDEN) degree you have received? Sex Assigned at Date Recorded Male 05/21/2018 2:34 PM CDT documented as of this encounter Plan of Treatment Not on filedocumented as of this encounter Visit Diagnoses Not on filedocumented in this encounter Additional Health Concerns Assessment Noted Time PHQ-9 Depression Total Score: 18 04/28/2018 11:27 AM C DT documented as of this encounter Care Teams Paving Machine Operator Relationship Specialty Start Date End Date Chris Billings M.B.B.S., M.D. PCP - General Family Medicine 01/10/20 05/21/[address] [place] [address] [place] [phone] documented as of this encounter
--- OUTSIDE RECORDS SUMMARY | 2022-05-27 12:03 | XMS_ITS | Encounter Summary ---
:1945 Author Organization [facility] Address [address] [place] [address] Care Team Providers Name Role Phone Chris Billings M.D. Primary Care Provider [phone] Encounter Details Date Type Department Care Team Description 04/20/2020 Clinical Communication Department of Rachael Mendez Cardiovascular Diseases R.NMauro in [facility] [address] [facility] [address] [place] [phone] Social History Tobacco Use Types [...] do you attend religion or Never 2021 rastafarian services? Do you [...] have completed or the highest Martin, MEd, DOBBY LOOM WEAVER, CAYDEN) degree you have received? Sex Assigned at Date Recorded Male 05/21/2018 2:34 PM CDT documented as of this encounter Miscellaneous Notes Telephone Encounter - Rachael Mendez R.N. - 04/20/2020 8:34 AM CDT Name of person contacted: Patient Relationship to patient: Not applicable Call back number: N/A Laundry Sorter: Not applicable Information provided: Reviewed Dr. Bañuelos's note with patient. salesperson furs/patient received and understood education/information provided: Yes salesperson furs/patient agreed to the Plan of Care: Yes [...] of this encounter Care Teams Director Of Flight Operations Relationship Specialty Start Date End Date Chris Billings M.B.B.S., M.D. PCP - General Family Medicine 01/10/20 05/21/[address] [place] [address] [place] [phone] documented as of this encounter
--- OUTSIDE RECORDS SUMMARY | 2022-05-27 12:03 | XMS_ITS | Encounter Summary ---
:1945 Author Organization [facility] Address [address] [place] [address] Care Team Providers Name Role Phone Chris Billings M.D. Primary Care Provider [phone] Encounter Details Date Type Department Care Team Description 04/19/2020 Clinical Communication Department of Chris Terry [facility], Lorri Tavarez, Clinic, in [place] [address] [facility] [address] [facility] [place] [phone] Social History Tobacco Use Types Packs/Day Years [...] do you attend religious or Never 2021 mosque services? Do you [...] completed or the highest Martin, MEd, DELIVERY RECRUITER, CAYDEN) degree you have received? Sex Assigned [...] often. Patient is requesting a referral to [facility] pharmacist in [place] to review medications and symptoms he is having. Patient is wanting urgent pharmacy consult in [place]. Please call patient to schedule once referral [...] He feels over medicated. Current Phone Number: [phone] Can Nursing/Provider leave a detailed message: Did [...] as of this encounter Care Teams Director Nurses' Registry Relationship Specialty Start Date End Date Chris Billings M.B.B.S., M.D. PCP - General Family Medicine 01/10/20 05/21/[address] [place] [phone] documented as of this encounter
--- OUTSIDE RECORDS SUMMARY | 2022-05-27 12:03 | XMS_ITS | Encounter Summary ---
:1945 Author [address] [facility] Address [address] [place] [address] Care Team Providers Name Role Phone Chris Billings M.D. Primary Care Provider [phone] Reason for Visit Reason Comments Post Hospital Follow-up [place] 04/30/20 @ 0914 Encounter Details Date Type Department Care Team Description 05/02/2020 Clinical Department of Ronda Fernandez Post [facility]pi ching Communication Family Medicine, A, R.N. Follow-up ([facility], [address] [facility] 04/30/20 @ 0914) in [facility] [phone] [place], [place] (Work) [phone] Social History Tobacco Use [...] do you attend confucianism or Never 2021 alevism services? Do you [...] have completed or the highest Martin, MEd, TELESALES SUPERVISOR, CAYDEN) degree you have received? Sex [...] to a telephonic visit by the RN Pathology Tech in a few days. All questions answered. [...] purely exhausted, but I went to the stereotyper helper yesterday. This morning, patient notices more edema [...] time. The patient mentions that since his [place] PCP has left (or will be leaving soon), he plans to establish care in [place] [facility] medicine once new doctor starts in [...] documented as of this encounter Care Teams Detective Investigator Relationship Specialty Start Date End Date Chris Billings M.B.B.S., M.D. PCP - General Family Medicine 01/10/20 05/21/[address] [place] [phone] documented as of this encounter
--- OUTSIDE RECORDS SUMMARY | 2022-05-27 12:03 | XMS_ITS | Encounter Summary ---
:1945 Author Organization [facility] Address [address] [place] [id number] Care Team Providers Name Role Phone Chris Billings M.D. Primary Care Provider [phone] Reason for Visit Reason Comments Fatigue Auth/Cert Specialty Diagnoses / Procedures Referred By Contact Refer red To Contact Diagnoses Arrhythmia Ventricular Failure Heart (HCC) Failure Renal Acute (Acute Kidney Injury) (HCC) Procedures I49.9 (ICD-10-CM) - Arrhythmia Ventricular Referral ID Status Reason Start Date Expiration Date Visits Requ ested Visits Authorized [id number] 1 1 Encounter Details Date Type Department Care Team Description 05/03/2020 - Hospital Encounter [facility] Brandon Ellsworth D.O. [address] [place] [phone] Failure Heart (HCC) (Primary Dx); 05/06/2020 [facility] Michael J, M.D. [address] [place] [phone] Arrhythmia Ventricular; [facility] Roselia Mark M.D. [address] [place] [phone] Failure Renal Acute (Acute Kidney Injury ) (HCC) [facility], Tenth Floor [address] [place] [phone] Social History Tobacco Use Types Packs/Day Years [...] do you attend latter-day or Never 2021 sikh services? Do you [...] have completed or the highest Martin, MEd, HYDROELECTRIC MACHINERY MECHANIC, CAYDEN) degree you have received? Sex [...] Roselia Mark M.D. Discharge Provider Team: [facility] PRINCIPAL DIAGNOSIS Acute [...] disturbances should be promptly examined by an fabric worker supervisor. The dose should be reduced or discontinued in patients with persistent hepatic enzyme levels of 3times the upper limit of normal values. FOLLOW-UP APPOINTMENTS Scheduled Appointments 05/09/2020 10:30 AM LAB [address] [place] [address] Laboratory Medicine 05/11/2020 10:00 AM Rusty Da Silva M.D. Family Medicine 05/18/2020 8:10 AM LAB 01 [facility] Laboratory Medicine 05/25/2020 8:15 AM Prasanna Bernal [...] L fluid restriction PRIMARY PROVIDER No care team sports sales associate to display Primary Care Providers: Chris Billings M.B.B.S., M.D. (General) [address] [place] [phone] Primary Care Provider Primary Care Provider MARGIN [...] management, yearly follow up with a local Deicer Kit Assembler and Dietitian is recommended. Please check with your insurance company asdiabetes education visits are commonly covered. Your primary care provider can provide referrals foreducation. AttachmentsThe following attachments cannot be sent through Care Everywhere. Amiodarone (By mouth) (Barbadian)Hydralazine (By mouth) (Barbadian)documented in this encounter Medications at Time [...] mouth tabletIndications: daily. 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 zfxkrh-fgegdtcq-mylylak Take 1 capsule by 0 10/12/2020 (CREON) [...] difficulty to identifying a primary physician at [facility]. We will try to help him to [...] in provider's residence to the patient in [facility]. Plan was discussed with the patient. DCS Pager [phone] will continue to follow. Call primary service for diabetes concerns between [phone]. Primary service to contact DCS via hospital foot miter operator for questions. Marce Sy APRN, C.N.P. [...] ASSESSMENT / PLAN #1 Increased Ventricular Ectopy [place] #2 Acute on Chronic Left Ventricular Systolic [...] ASSESSMENT / PLAN #1 Increased Ventricular Ectopy [place] #2 Acute on Chronic Left Ventricular Systolic [...] Collaborating physician: Dhiraj Michelle M.D. Admitting service: [facility] HISTORY OF PRESENT ILLNESS Mr. Costa is a 74 y.o. male who presented to [place] emergency department for Heart failure and was [...] 33% He is being admitted to [facility] service for further evaluation and management [...] Cardiology evaluation in Emergency Department here at [facility]. The following portions of the patient's history were reviewed and updated as appropriate: allergies,current medications, family history, medical history, social history, surgical history and problem list. PAST MEDICAL HISTORY Past Medical History: Diagnosis Date ??? Apnea Sleep Obstructive 06/18/2011 intolerant to CPAP therapy ??? Asthma (HCC) 10/16/2009 Pulmonary symptomatology, diagnosis at the [place] unclear, but probably some degree of COPD. [...] INSERTION INTRAOCULAR LENS Left 04/2008 At the [place] ??? LASER OF PROSTATE W/ GREEN LIGHT PVP 08/28/2016 Greenlight photoselective vaporization of the prostate and cystoscopy with bladder biopsy and fulguration of a 2cm area; 08/28/[address] Prasanna Bernal at the [facility]. ??? TONSILLECTOMY ??? VASECTOMY REVIEW OF SYSTEMS [...] by mouth daily., 05/03/2020 at 0800 ??? lcwjkq-rdbxulvm-gsnvftq (CREON) 6,000-19,000-30,[address] capsule, 2 [...] for: Diabetes, Unknown at Unknown time ??? eievyj-fiuyfhem-frqryxk (CREON) 6,000-19,000-30,[address] capsule, Take [...] mg IVP --consult DCS --repeat COVID testing --[place] wrap lower extremity --cardiovascular diet with 2 [...] dullness in both bases. Precordium is quiet. [place] indistinct. First and second heart sounds are [...] Friday - Friday, 7:30 to 4:00pm at [phone]. To qualify for participation in a Cardiac [...] in provider's residence to the patient in [facility]. Thank you for the consult. DCS Pager [phone] will follow. Call primary service for diabetes concerns between [phone]. Primary service to contact DCS via hospital foot miter operator for questions. Rodney Moreno M.D. - 05/03/2020 1:56 PM CDTAssociated Order(s): IP CONSULT TO CARDIOLOGY CARDIOLOGY CONSULT NOTE SUBJECTIVE Cardiology consult (hospital) Referring Provider: Brandon Ellsworth D.O. REASON FOR CONSULT CHF HISTORY OF PRESENT ILLNESS Mr. Jonnathan Costa [...] Master's degree (e.g., MA, MS, Martin, MEd, HYDROELECTRIC MACHINERY MECHANIC, CAYDEN) Occupational History Employer: RETIRED Social Needs [...] week Gets together: Twice a week Attends sikh service: 1 to 4 times per year [...] swelling. The patient was referred to the [facility] ED by our physician daughter for [...] radiology report(s). Case reviewed with other health customer care specialist, including Cardiology and Admitting Provider. Final Diagnoses: [...] also initiated on hydralazine for afterload reduction. Hkjnvmvhlz297 mg TID was initiated for antiarrhythmic therapy. [...] - STAT 05/05/2020 1:39 Results for HOSPITAL HYDROELECTRIC PLANT OPERATOR - PM CDT this proc edure MONITORED [...] MUSE QTC Interval 467 ms MUSE P Marion 24 degrees MUSE R [place] 7 degrees MUSE T Wave [place] 87 degrees MUSE Specimen Anatomical Collection Method [...] (05/06/2020 4:21 AM CDT) [facility] Signature Potassium, S 4.0 3.6 [...] 05/06/2020 DTL Black/ mL/min/BSA 6:25 AM CDT Citizen [place] Comment: ----ADDITIONAL INFORMATION---- Estimated [...] APRNNKerry LAB BLOOD ADD-ON Performing Organization Address City/[facility]/ZIP [facility] Phon e Number [facility] - [address] [place], [place] [address] [facility] [place] [address] [facility] 200 [facility] (ABNORMAL) Glucose, POCT (05/05/2020 10:08 PM [...] Provider LAB POCT ORDERABLES-MANUAL Performing Organization Address City/[facility]/ZIP [facility] Phon e Number POC [facility] [address] [place] [address] PCLX [facility] [place] [address] [place] POC 200 [facility] (ABNORMAL) Glucose, POCT (05/05/2020 5:11 PM [...] Address City/State/ZIP Code Phon e Number POC [facility] [address] [place] [address] PCLX [facility] [place] [address] [place] POC [address] [facility] (ABNORMAL) Basic Metabolic Panel (05/05/2020 3:08 PM [...] 05/05/2020 DTL Black/ mL/min/BSA 4:56 PM CDT Citizen [place] Comment: ----ADDITIONAL INFORMATION---- Estimated [...] C.N.P. LAB BLOOD ADD-ON Performing Organization Address City/[facility]/ZIP Code Phon e Number [facility] - 200 [place], [place] [address] [facility] [place] [address] Laboratories-[facility] 200 [facility] HOLTER MONITOR - HOSPITAL HYDROELECTRIC PLANT OPERATOR - MONITORED IN HOSPITAL OR ED DISCHARGE (05/05/2020 1:39 PM CDT) [facility] gist Method Time Signature Recording Date HOLTER SENTINEL VT Runs 0 count HOLTER SENTINEL SVE Max Per HOLTER Hour Time SENTINEL Min Heart Rate 46 bpm HOLTER SENTINEL SVE Percent 2 percent HOLTER Beats SENTINEL VE Max Per 421 count HOLTER Hour SENTINEL Min Heart Rate [id number] HOLTER Time SENTINEL Tachycardia 0 count HOLTER Runs SENTINEL VE Max Per [id number] HOLTER Hour Time SENTINEL Holter Pauses 0 count HOLTER SENTINEL AF Count 0 count HOLTER SENTINEL SVE Max Per 129 count HOLTER Hour SENTINEL VE Percent 2 percent HOLTER Beats SENTINEL Analysis Date 20,200,810 HOLTER SENTINEL Bradycardia 0 count HOLTER Runs SENTINEL Max Heart Rate 71 bpm HOLTER SENTINEL Max Heart Rate [id number] HOLTER Time SENTINEL Mean Heart 56 bpm [...] (05/05/2020 12:13 PM CDT) Analysis Performed At [facility] logist Time Signature Glucose, POCT, 204 (H) [...] Address City/State/ZIP Code Phon e Number [facility] SERVICES [address] [place] [address] [place] [address] [facility] [address] Microscopic Automated (05/05/2020 11:21 AM CDT) P athologist Signature Microscopy Normal 05/05/2020 1:54 PATY PM CDT Specimen Anatomical Collection Method Collection Time Receive d Time (Source) Location / / Volume Laterality Urine 05/05/2020 11:21 05/05/2020 AM CDT 12:23 PM CDT Dat Perez M.D. LAB URINE ORDERABLES Performing Organization Address City/State/ZIP Code Phon e Number [facility] - [address] [place], [place] [address] [place] [address] [facility] [address] Creatinine, Random, [...] Organization Address City/State/ZIP Code Phon e Number [facility] - [address] [place], [place] [address] [place] [address] [facility] [address] Urea, Random, Urine (05/05/2020 11:21 AM CDT) Analysis Performed At Patho logist Time Signature Urea, Random, U 450 mg/dL 05/05/2020 PATY 1:17 PM CDT Creatinine 22 mg/dL 05/05/2020 [...] Organization Address City/State/ZIP Code Phon e Number [facility] - [address] [place], [place] [address] [facility] [place] [address] Laboratories-[facility] [address] (ABNORMAL) Urinalysis with Microscopic: Urine, Clean Catch (05/05/2020 11:21 AM CDT) [facility] Method Time Signature Source Midstream 05/05/2020 PATY 12:24 PM CDT Appearance Normal Normal 05/05/2020 PATY 1:17 PM CDT Osmolality, U 322 150 - 1150 05/05/2020 PATY mOsm/kg 1:35 PM CDT pH, U 5.6 4.5 - 8.0 05/05/2020 PATY 1:35 PM CDT Comment: ----ADDITIONAL INFORMATION---- This test was developed and its performa nce characteristics determined by [facility] in a manner co nsistent with [...] Organization Address City/State/ZIP Code Phon e Number [facility] - [address] [place], [place] [address] [facility] [place] [address] Laboratories-[facility] [address] ECG MONITOR [...] change. Patchy medial right lower lung consolidations. Rqqhe-bx-zxpsupvr right and small left p leural effusion. [...] change. Patchy medial right lower lung consolidations. Hkgrz-nk-rrsrfisa right and small left p leural effusion. Cardiomegaly. Aortic calcifications. No acute osseous abnorma lities. Dat Perez M.D. IMG DIAGNOSTIC IMAGING PROCE DURES (ABNORMAL) Glucose, POCT (05/05/2020 8:05 AM CDT) Analysis Performed At [facility] Time Signature Glucose, POCT, 152 (H) [...] Address City/State/ZIP Code Phon e Number POC [facility] [address] [place] [address] PCLX [facility] [place] [address] [place] POC [address] (ABNORMAL) Basic Metabolic Panel (05/05/2020 4:21 AM CDT) Analysis Performed At [facility] Signature Potassium, S 3.9 3.6 - 5.2 [...] 05/05/2020 DTL Black/ mL/min/BSA 5:13 AM CDT Citizen [place] Comment: ----ADDITIONAL INFORMATION---- Estimated [...] Organization Address City/State/ZIP Code Phon e Number [facility] - [address] [place] [address] [facility] [place] [address] [facility] 200 [facility] (ABNORMAL) CBC without Differential (05/05/2020 4:21 AM CDT) [facility] gist Method Time Signature Hemoglobin 9.2 [...] C.N.P. LAB BLOOD ADD-ON Performing Organization Address City/[facility]/ZIP Code Phon e Number [facility] - 200 [place], [place] [address] 200 [facility] (ABNORMAL) Glucose, POCT (05/04/2020 8:43 PM [...] Provider LAB POCT ORDERABLES-MANUAL Performing Organization Address City/[facility] Phon e Number [facility] 200 [place] [id number] PCLX [address] POC 200 [facility] Glucose, POCT (05/04/2020 4:49 PM CDT) Analysis Performed At [facility] Signature Glucose, POCT, 79 70 - 140 05/04/2020 PCLX B mg/dL 4:58 PM CDT Site Capillary 05/04/2020 PCLX 4:58 PM CDT Last Intake > 4 hours 05/04/2020 PCLX 4:58 PM CDT Specimen Anatomical Collection Method Collection Time Receive d Time (Source) Location / / Volume Laterality Blood 05/04/2020 4:49 PM 0 4:58 CDT PM CDT Unknown Provider LAB POCT ORDERABLES-MANUAL Performing Organization Address City/[facility] Phon e Number POC [facility] [address] [place] [phone] PCLX [address] POC 200 [facility] (ABNORMAL) Basic Metabolic Panel (05/04/2020 4:07 PM CDT) Analysis Performed At [facility] logis Time Signature Potassium, S 4.5 3.6 [...] 05/04/2020 DTL Black/ mL/min/BSA 5:03 PM CDT Citizen [place] Comment: ----ADDITIONAL INFORMATION---- Estimated [...] Organization Address City/State/ZIP Code Phon e Number [facility] - [address] [place], [place] [address] [facility] [place] [address] Laboratories-[facility] [address] (ABNORMAL) Magnesium (05/04/2020 11:46 AM CDT) P athologist Signature Magnesium, S 2.4 (H) 1.7 - 2.3 05/04/2020 DTL mg/dL 12:25 PM CDT Specimen Anatomical Collection Method Collection Time Receive d Time (Source) Location / / Volume Laterality Blood (Blood, 05/04/2020 11:46 05/04/2020 Venous) AM CDT 12:14 PM CDT Dat Perez M.D. LAB BLOOD ADD-ON Performing Organization Address City/[facility]/ZIP Code Phon e Number [facility] - [address] [place], [place] [address] [facility] [place] [place] [address] [facility] [address] [facility] Glucose, POCT (05/04/2020 11:45 AM CDT) Analysis [...] Provider LAB POCT ORDERABLES-MANUAL Performing Organization Address City/[facility] Phon e Number POC [facility] [address] [place] [address] PCLX [address] POC [address] [facility] (ABNORMAL) Glucose, POCT (05/04/2020 7:59 AM CDT) P athologist Signature Glucose, POCT, 191 (H) 70 - 140 05/04/2020 PCLX B mg/dL 8:06 AM CDT Specimen Anatomical Collection Method Collection Time Receive d Time (Source) Location / / Volume Laterality Blood 05/04/2020 7:59 AM 0 8:07 CDT AM CDT Unknown Provider LAB POCT ORDERABLES-MANUAL Performing Organization Address City/[facility]/ZIP [facility] Phon e Number POC [facility] [address] [place] [address] POC [address] (ABNORMAL) Prothrombin [...] C.N.P. LAB BLOOD ADD-ON Performing Organization Address City/[facility] Phon e Number [facility] [address] [place] [address] Laboratories-[address] Magnesium (05/04/2020 4:20 AM CDT) P athologist Signature Magnesium, S 1.9 1.7 - 2.3 05/04/2020 DTL mg/dL 5:44 AM CDT Specimen Anatomical Collection Method Collection Time Receive d Time (Source) Location / / Volume Laterality Blood (Blood, 05/04/2020 4:20 AM 05/04/20 20 5:25 Venous) CDT AM CDT Lulu Wilkins APRN, C.N.P. LAB BLOOD ADD-ON Performing Organization Address City/[facility] Phon e Number [facility] - [address] (ABNORMAL) Comprehensive Metabolic Panel (05/04/2020 4:20 [...] 05/04/2020 DTL Black/ mL/min/BSA 5:44 AM CDT Citizen [place] Comment: ----ADDITIONAL INFORMATION---- Estimated [...] C.N.P. LAB BLOOD ADD-ON Performing Organization Address City/State/[facility] Code Phon e Number [facility] - [address] [place], [place] [address] [place] [address] Laboratories-[address] (ABNORMAL) CBC without Differential (05/04/2020 4:20 [...] Organization Address City/State/ZIP Code Phon e Number [facility] - 200 [place], [place] [address] (ABNORMAL) Troponin T, 5th Generation (05/04/2020 [...] C.N.P. LAB BLOOD ADD-ON Performing Organization Address City/[facility]/ZIP Code Phon e Number [facility] - [address] [place], [place] [address] [facility] [place] [address] Laboratories-[facility] [address] (ABNORMAL) Glucose, [...] Provider LAB POCT ORDERABLES-MANUAL Performing Organization Address City/[facility] Code Phon e Number [facility] [address] [place] [address] [place] [address] [place] POC 200 [facility] SARS Coronavirus 2 IgG Ab, Serum [...] ?? Testing was performed using the EUROIMMUN Fsec-EZRQ-KoY-2 ALISTAIR (IgG), which has received Emergency Use Authori zation (EUA) by the U.S. Food and Drug Administration . ?? Fact sheets for this EUA assay can be fo und at the following links: ?? Factsheet for healthcare Providers: ?? https://www.fda.gov/media/723462/downloa d Factsheet for healthcare Patients: ?? https://www.fda.gov/media/553183/downloa d Specimen Anatomical Collection Method Collection Time Receive d Time (Source) Location / / Volume Laterality Blood (Blood, 05/03/2020 8:03 PM 05/04/20 20 7:27 Venous) CDT AM CDT Lulu Tae Wilkins APRN, C.N.P. LAB MICROBIOLOGY - BLOOD ORDERABLES Performing Organization Address City/State/ZIP Code Phon e Number [facility] [address] [place], [place] [address] [facility] [place] [address] Laboratory Medicine and Pathology [address] [place] SARS Coronavirus-2 RNA, V (05/03/2020 7:12 PM CDT) [facility] Method Time Signature SARS-CoV-2 Nasopharynx 05/04/2020 DTL [...] is performed using the Aptima SARS-CoV-2 assay ([employer] which has received Emergency Use Authori zation (EUA) by the U.S. Food and Drug Administration. Fact sheets for this Emergency Use Autho rization (EUA) assay can be found at the following links: For Healthcare Providers: https://www.fd a.gov/media/206585/download For Patients: https://www.fda.gov/media/ 960220/download Specimen Anatomical Collection Method Collection Time Receive d Time (Source) Location / / Volume Laterality Varies 05/03/2020 7:12 PM 0 CDT 10:07 PM CDT Lulu Wilkins APRN C.NMauroPMauro LAB MICROBIOLOGY - GENER AL ORDERABLES Performing Organization Address City/State/ZIP Code Phon e Number [facility] - [address] [place], [place] [address] [facility] [place] [address] Laboratories-[facility] 200 [facility] (ABNORMAL) Glucose, POCT (05/03/2020 5:55 PM [...] Provider LAB POCT ORDERABLES-MANUAL Performing Organization Address City/[facility]/ZIP Code Phon e Number POC [facility] [address] [place] [address] PCLX [facility] [place] [address] [place] POC [address] [place] [address] (ABNORMAL) Troponin T, 2H/6H, 5th Gen (05/03/2020 [...] 20 4:01 Venous) CDT PM CDT Narrative [facility] - [facility] - 05/03/2020 9:13 PM CDT Specimen Information: Specimen ID: [id number] Specimen Type: Blood Specimen Collection Start Date: 0 ??3:53 PM Specimen Received Date: 05/03/2020 ??4:01 PM Specimen ID: [id number] Specimen Type: Blood Specimen Collection Start Date: 0 ??8:03 PM Specimen Received Date: 05/03/2020 ??8:23 PM Brandon Ellsworth D.O. LAB BLOOD TROPONIN Performing Organization Address City/State/ZIP Code Phon e Number [facility] - [address] [place] [address] [place] [address] Laboratories-[facility] [address] DX Chest [...] D.O. LAB BLOOD ADD-ON Performing Organization Address City/[facility] Code Phon e Number [facility] - [address] [place], [place] [address] [facility] DTL [address] (ABNORMAL) NT-Pro B-Type Natriuretic Peptide (BNP) [...] D.O. LAB BLOOD ADD-ON Performing Organization Address City/State/[facility] Code Phon e Number [facility] - [address] [place], [place] [address] [facility] [place] [address] Laboratories-[address] (ABNORMAL) Troponin T, Baseline, 5th gen [...] Organization Address City/State/ZIP Code Phon e Number [facility] - 200 [place], [place] [address] [facility] [place] [address] [facility] 200 [facility] (ABNORMAL) Basic Metabolic Panel (05/03/2020 1:44 [...] eGFR-Black/Afri 39 (L) >=60 05/03/2020 [facility] can Citizen Of [place] mL/min/BSA 2:20 PM CDT Comment: ----ADDITIONAL INFORMATION---- Estimated GFR calculated using the 2009 CKD_EPI creatinine equation. eGFR Non-Black/ 33 (L) >=60 mL/min/BSA 05/03/2020 2:20 PM CDT [facility] Citizen [place] Comment: ----ADDITIONAL INFORMATION---- Estimated [...] D.O. LAB BLOOD ADD-ON Performing Organization Address City/[facility] Phon e Number [facility] - 200 [place], [place] [address] [place] [address] (ABNORMAL) CBC without Differential (05/03/2020 1:44 PM CDT) [facility] gist Method [...] D.O. LAB BLOOD ADD-ON Performing Organization Address City/[facility] Code Phon e Number [facility] - [address] ECG 12 Lead (05/03/2020 1:34 PM CDT) P athologist Signature Ventricular Rate 59 BPM MUSE ECG/Min AR Interval 182 ms MUSE QRSD Interval 102 ms MUSE QT Interval 494 ms MUSE QTC Interval 489 ms MUSE P Marion 60 degrees MUSE R Marion -21 degrees MUSE T Wave [place] 72 degrees MUSE Specimen Anatomical Collection Method [...] 1,000 Units, oral, Daily, First dose on Hail 05/04/20 at 0900, cholecalciferol (vitamin D3) orderable [...] Given 05/04/2020 8:29 AM CDT 60 mg luqijx-sjtcrmbh-cnmjmgb Given 05/04/2020 4:50 PM CDT 1 capsule 6,000-19,000-30,[address] capsule 1 capsule (CREON) 1 capsule, oral, As needed, snacks, Starting on Fri05/03/20 at 1729, Do NOT crush or chew. Capsule may be opened and the contents taken without crushing or chewing. Given 05/04/2020 12:37 PM CDT 1 capsule Given 05/04/2020 8:30 AM CDT 1 capsule lqolid-pmimuson-izmkpgw Given 05/06/2020 12:00 PM CDT 2 capsules [...] 0517 (Given - Provider: Chelo Gautam RJustina, [facility])1421 (Given - Provider: Francisco Zuluaga RMauroN.)2155 (Given [...] may be split on score if needed. xskrqq-illmsbyz-eouhhpi 6,000-19,000-30, [address] capsule 2 [...] of breath, Starting on Fri05/03/20 at 1933 bmyquc-fdmolhnr-xdabljv 6,000-19,000-30, [address] capsule 1 capsule (CREON) 0830 (Given - Provider: Emilia Garcia R.N.)1237 (Given - Provider: Emilia Garcia R.N.)1650 [...] documented as of this encounter Care Teams Furniture Assembler Relationship Specialty Start Date End Date Chris Billings M.B.B.S., M.D. PCP - General Family Medicine 01/10/20 05/21/[address] [place] [address] [place] [phone] documented as of this encounter
--- OUTSIDE RECORDS SUMMARY | 2022-05-27 12:03 | XMS_ITS | Encounter Summary ---
:1945 Author Organization [facility] Address [address] [place] [address] Care Team Providers Name Role Phone Chris Billings M.D. Primary Care Provider +[phone] Encounter Details Date Type Department Care Team Description 05/02/2020 Clinical Communication Department of Internal Shlomo Ojeda, Medicine in [facility], C.N. [facility] [address] [place] [phone] Social History Tobacco Use Types Packs/Day Years [...] do you attend uatsdin or Never 2021 congregation services? Do you [...] have completed or the highest Martin, MEd, PUBLIC STENOGRAPHER, [place]) degree you have received? Sex Assigned at Date Recorded Male 05/21/2018 2:34 PM CDT documented as of this encounter Miscellaneous Notes Telephone Encounter - Kira Sorenson M - 05/02/2020 1:50 PM CDT ([facility] and [facility] locations only: If the patient is not having symptoms and is requesting COVID-19 Nasal Swab testing only, use the process listed in the COVID-19 Patient Requesting COVID PCR Test OTG COVID-19 [place] Patient Requesting COVID PCR Test). 1. Do [...] no Route reply to: Scheduling Contact Number: [phone] documented in this encounter Plan of Treatment Not on filedocumented as of this encounter Visit Diagnoses Not on filedocumented in this encounter Additional Health Concerns Assessment Noted Time PHQ-9 Depression Total Score: 18 04/28/2018 11:27 AM C DT documented as of this encounter Care Teams Outside Rigger Relationship Specialty Start Date End Date Chris Billings M.B.B.S., M.D. PCP - General Family Medicine 01/10/20 05/21/[address] [place] [address] [place] [phone] documented as of this encounter
--- OUTSIDE RECORDS SUMMARY | 2022-05-27 12:03 | XMS_ITS | Encounter Summary ---
:1945 Author Organization [facility] Address [address] [place] [address] Care Team Providers Name Role Phone Chris Billings M.D. Primary Care Provider [phone] Encounter Details Date Type Department Care Team Description 04/12/2020 Documentation Division of Gastroenterology Ran Vilchis in [facility] [address] [facility] [address] [place] [phone] Social History Tobacco Use Types Packs/Day Years [...] you attend latter day or Never 2021 advent services? Do you [...] completed or the highest Martin, MEd, HOSPITAL INTERN, CAYDEN) degree you have received? Sex Assigned at Date Recorded Male 05/21/2018 2:34 PM CDT documented as of this encounter Plan of Treatment Not on filedocumented as of this encounter Visit Diagnoses Not on filedocumented in this encounter Additional Health Concerns Assessment Noted Time PHQ-9 Depression Total Score: 18 04/28/2018 11:27 AM C DT documented as of this encounter Care Teams Batch Mixer Relationship Specialty Start Date End Date Chris Billings M.B.B.S., M.D. PCP - General Family Medicine 01/10/20 05/21/[address] [place] [phone] documented as of this encounter
--- OUTSIDE RECORDS SUMMARY | 2022-05-27 12:03 | XMS_ITS | Encounter Summary ---
:1945 Author Organization [facility] Address [address] [place] [address] Care Team Providers Name Role Phone Chris Billings M.D. Primary Care Provider [phone] Encounter Details Date Type Department Care Team Description 05/03/2020 Clinical Communication Department of Internal Shlomo Ojeda, Medicine in [facility], C.N. [facility] [address] [place] [phone] Social History Tobacco Use Types Packs/Day Years [...] do you attend congregation or Never 2021 oriental orthodox services? Do [...] have completed or the highest Martin, MEd, DIAMOND MOUNTER, CAYDEN) degree you have received? Sex Assigned [...] is looking for lab results. Diallo - [phone] documented in this encounter Plan of Treatment Not on filedocumented as of this encounter Visit Diagnoses Not on filedocumented in this encounter Additional Health Concerns Infection Onset Date Last Indicated Resolved Time COVID19 Pending 05/03/2020 05/03/2020 05/03/2020 10:07 PM CDT Assessment Noted Time PHQ-9 Depression Total Score: 18 04/28/2018 11:27 AM C DT documented as of this encounter Care Teams Director Of Radiology Relationship Specialty Start Date End Date Chris Billings M.B.B.S., M.D. PCP - General Family Medicine 01/10/20 05/21/[address] [place] [phone] documented as of this encounter
--- OUTSIDE RECORDS SUMMARY | 2022-05-27 12:03 | XMS_ITS | Encounter Summary ---
:1945 Author Organization [facility] Address [address] [place] [address] Care Team Providers Name Role Phone Chris Billings M.D. Primary Care Provider [phone] Encounter Details Date Type Department Care Team Description 04/13/2020 Documentation Division of Gastroenterology Ran Vilchis in [facility] [address] [facility] [address] [place] [phone] Social History Tobacco Use Types Packs/Day Years [...] do you attend zoroastrian or Never 2021 mandaen services? Do you [...] completed or the highest Martin, MEd, RUBBER PRINTING MACHINE OPERATOR, CAYDEN) degree you have received? [...] as of this encounter Care Teams Licensed Insurance Sales Agent Relationship Specialty Start Date End Date Chris Billings M.B.B.S., M.D. PCP - General Family Medicine 01/10/20 05/21/[address] [place] [phone] documented as of this encounter
--- OUTSIDE RECORDS SUMMARY | 2022-05-27 12:03 | XMS_ITS | Encounter Summary ---
:1945 Author Organization [facility] Address [address] [place] [address] Care Team Providers Name Role Phone Chris Billings M.D. Primary Care Provider [phone] Reason for Visit Reason Comments Follow-up Outpatient (Routine) - Closed Specialty Diagnoses / Procedures Referred By Contact Refer red To Contact Endocrinology Carlos Kendall M.D., [facility] Ph.D. 200 [place] [address] Referral ID Status Reason Start Date Expiration Date Visits Requ ested Visits Authorized [id number] Closed 03/17/2020 03/17/2021 1 1 Encounter Details Date Type Department Care Team Description 04/13/2020 Office Visit Division of Carlos Kendall [facility] Type Endocrinology in [place], (HCC) (Pr imary Dx) [place], [place] Pato, Ph.D. 200 [facility] 200 [place] [address] [place], [place] [phone] Social History Tobacco Use Types Packs/Day [...] do you attend judaism or Never 2021 protestant services? Do you [...] completed or the highest Martin, MEd, COAL WHEELER, CAYDEN) degree you have received? Sex Assigned [...] strongly encouraged him to connect with the measuring machine tender if he has any doubt about adjusting insulin dose. In general I thought his glargine dose can be reduced to 20 or even below because his pre bedtime glucose is usually high the 200-50 region. He also gets hypoglycemia usually during this train caller time. He can reduce glargine dose to [...] the cost high glucose. He takes the 927836 units of Lantus in the night and [...] strongly encouraged him to connect with the measuring machine tender if he has any doubt about adjusting insulin dose. In general I thought his glargine dose can be reduced to 20 or even below because his pre bedtime glucose is usually high the 200-50 region. He also gets hypoglycemia usually during this train caller time. He can reduce glargine dose to [...] as of this encounter Care Teams Electric System Operator Relationship Specialty Start Date End Date Chris Billings M.B.B.S., M.D. PCP - General Family Medicine 01/10/20 05/21/[address] [place] [address] [place] [phone] documented as of this encounter
--- OUTSIDE RECORDS SUMMARY | 2022-05-27 12:03 | XMS_ITS | Encounter Summary ---
:1945 Author Organization [facility] Address [address] [place] [address] Care Team Providers Name Role Phone Chris Billings M.D. Primary Care Provider [phone] Encounter Details Date Type Department Care Team Description 05/03/2020 Clinical Communication Department of Lulu Huang Cardiovascular Diseases Tae, RJustina in [facility] [address] [place] [phone] Social History Tobacco Use Types Packs/Day Years [...] do you attend jew or Never 2021 oriental orthodox services? Do [...] have completed or the highest Martin, MEd, BINDER TECHNICIAN, CAYDEN) degree you have received? Sex Assigned at Date Recorded Male 05/21/2018 2:34 PM CDT documented as of this encounter Miscellaneous Notes Telephone Encounter - Lulu Huang R.N. - 05/03/2020 11:04 AM CDT Name of person contacted: Diallo Relationship to patient: MATTHEW on file Call back number: [phone] Crisis Clinician: Not applicable Information provided: Communication note 05/03/20 10:58 am Shlomo Ojeda CNP. Patient's in agreement with plan as outlined per Shlomo. electronic parts salesperson/patient received and understood education/information provided: Yes electronic parts salesperson/patient agreed to the Plan of Care: Yes Telephone Encounter - Shlomo Ojeda APRN, C.N.P. - 05/03/2020 10:54 AM CDT His renal function alone is not a reason to be directly admitted to the hospital (his renal functionis basically the same as the day he was dismissed from the hospital [place]), but his weight gain and worsening oxygenation numbers are. He would need to go through the emergency room for consideration of admission. If his oxygenation numbers are above 90% currently, I think it is safe for him to bedriven to [facility] in [place]. If his oxygen numbers are below 90% he should goto the closest emergency room. Telephone Encounter - Lulu Huang R.N. - 05/03/2020 9:36 AM CDT ASSESSMENT Patient's , Diallo (MATTHEW on-file), transferred from call center with concern regarding patient. Diallo is requesting for Jonnathan to be admitted to [place] for possible kidney failure. She stated her [...] and stated she will drive him to [facility] for evaluation. PLAN Follow-up with emergency department, , Diallo, will transport patient. Disposition/Recommendation: recommended to report to the nearest emergency department. Information/Education: patient/caller able to teach back. Preference for [facility]. Caller agreeable to plan of care: yes. The following references were used: nursing clinical judgement. (ANDREW Keenan) documented in this encounter Plan of Treatment Not on filedocumented as of this encounter Visit Diagnoses Not on filedocumented in this encounter Additional Health Concerns Assessment Noted Time PHQ-9 Depression Total Score: 18 04/28/2018 11:27 AM C DT documented as of this encounter Care Teams Personal Lines Sales Rep Relationship Specialty Start Date End Date Chris Billings M.B.B.S. MDahlia. PCP - General Family Medicine 01/10/20 05/21/[address] [place] [address] Teresa [place], [place] [phone] documented as of this encounter
--- OUTSIDE RECORDS SUMMARY | 2022-05-27 12:03 | XMS_ITS | Encounter Summary ---
:1945 Author Organization [facility] Address [address] [place] [address] Care Team Providers Name Role Phone Chris Billings M.D. 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 [facility] [place] [facility] Procedures Echo Transthoracic (TTE) [address] [place] [address] Referral ID Status Reason Start Date Expiration Date Visits Requ ested Visits Authorized [id number] Closed 01/20/2020 01/19/2021 1 1 Encounter Details Date Type Department Care Team Description 04/17/2020 Hospital Department of Arsenio Bañuelos Heart Encounter Cardiovascular Koko Champagne M.D. Disease [place] Diseases in [place], [facility] Coronary Artery With [place], [place] Other Forms Angina [address] [phone] Pectoris (Angina [place] PATEL [phone] Equivalent) (HC C) [phone] (Work) [phone] Social History Tobacco Use Types Packs/Day Years [...] do you attend synagogue or Never 2021 christian services? Do you [...] have completed or the highest Martin, MEd, TAX COLLECTOR, CAYDEN) degree you have received? Sex [...] PEN NEEDLE, DIABETIC Yani Fine [address] [facility] disposable needles. For use with Insulin Pens, 4 times daily SYRINGE-NEEDLE,INSULIN,0 0 .5 ML (INSULIN SYRINGE [facility] albuterol (for_ACCUNEB) Take 2.5 mg by 0 [...] 05/01/2020 reader (FREESTYLE ILEANA 14 DAY READER) [facility] [...] by mouth tabletIndications: daily. 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 Equivalent) (HCC) documented in this encounter Results (TTE) 2D ECHO DOPPLER COLOR (04/17/2020 10:06 AM CDT) [facility] Method Time Signature Ejection Fraction 42 MC [...] effusion. For the complete report, see the [employer] Documents. Narrative 04/17/2020 1:23 PM CDT For the complete report, see the [employer] Documents. Final Impressions 1. Mildly enlarged left [...] For the complete report, see the [employer] Documents. Final Impressions 1. Mildly enlarged left [...] encounter Visit Diagnoses Diagnosis Atherosclerotic Heart Disease [place] Cor onary Artery With Other Forms Angina Pectoris (Angina Equivalent) (HCC) documented in this encounter Additional Health Concerns Assessment Noted Time PHQ-9 Depression Total Score: 18 04/28/2018 11:27 AM C DT documented as of this encounter Care Teams Sorority Supervisor Relationship Specialty Start Date End Date Chris Billings M.B.B.S., M.D. PCP - General Family Medicine 01/10/20 05/21/[address] [place] [address] [place] [address] documented as of this encounter
--- OUTSIDE RECORDS SUMMARY | 2022-05-27 12:03 | XMS_ITS | Encounter Summary ---
:1945 Author Organization [facility] Address [address] [place] [address] Care Team Providers Name Role Phone Chris Billings M.D. Primary Care Provider [phone] Reason for Referral Outpatient (Routine) - Closed Specialty Diagnoses / Procedures Referred By Contact Refer red To Contact Diagnoses Bradycardia Shlomo Ojeda APRN, [facility] [place] Procedures ECG Heart rhythm monitor (Holter) C.N.P. [address] [address] Referral ID Status Reason Start Date Expiration Date Visits Requ ested Visits Authorized [id number] Closed 05/01/2020 05/01/2021 1 1 Reason for Visit Outpatient (Routine) - Closed Specialty Diagnoses / Procedures Referred By Contact Refer red To Contact Cardiovascular Disease Koko Bañuelos, [facility] M.[address] [address] Referral ID Status Reason Start Date Expiration Date Visits Requ ested Visits Authorized [id number] Closed 01/20/2020 01/19/2021 1 1 Encounter Details Date Type Department Care Team Description 05/01/2020 Office Visit Department of Shlomo Ojeda On Chron ic 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) (Primary Dx); Cardiovascular Diseases C, ACCOUNTS ADJUSTABLE CLERK, Athe rosclerotic Heart Disease [place] 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 Do you [...] completed or the highest Martin, MEd, TELESALES REPRESENTATIVE, [place]) degree you have received? Sex [...] Since then, he saw primary care in [place] wanting to decrease his pill burden. He was taken off of his diltiazem and chlorthalidone on March 15, 2020. About two weeks ago developed some worsening shortness of breath and presented to the [place] emergency room and was subsequently admitted to [...] his daughter (a physician up in the [facility]). MEDICATIONS Current Outpatient Medications: ??? [...] by mouth daily., Disp: , Rfl: ??? coxdcf-acoceuck-zpzmpsz (CREON) 6,000-19,000-30,[address] capsule, Take [...] Instr:Indicated for: Diabetes, Disp: , Rfl: ??? chokua-pbkymcwm-dumunla (CREON) 6,000-19,000-30,[address] capsule, 2 [...] 08/28/[address] Prasanna Bernal at the [facility]. ??? TONSILLECTOMY ??? VASECTOMY OBJECTIVE VITAL [...] the chest April 28, 2020 ([facility] in [place]) INDICATION: Difficulty breathing. Shoulder pain TECHNIQUE: CT [...] thickening at the apices. Pleura and pericardium: Zzxuvemw-ye-waury bilateral pleural effusions, right mildly greater than [...] lymphoma, versus metastatic adenopathy, is recommended. [facility] Creatinine 1.72, glucose 230, [...] weighing himself daily. 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 documented in this encounter Miscellaneous Notes Addendum [...] this 4) PANEL, S/P PM CDT Disease [place] Coronary pro cedure are in Artery With Other Forms the results Angina Pectoris (Angina sect ion. Equivalent) ([facility] ) Hypertension Essential Primary Chronic Kidney Disease Stage 3 Glomerular Filtration Rate 30 To 59 (HCC) BUN (BLOOD UREA Routine 05/01/2020 4:26 Atherosclerotic Heart Results for this NITROGEN), S/P PM CDT Disease [place] Coronary pr ocedure are in Artery With Other Forms the results Angina Pectoris (Angina sect ion. Equivalent) (HCC ) Hypertension Essential Primary Chronic Kidney Disease Stage 3 Glomerular Filtration Rate 30 To 59 (HCC) CREATININE WITH Routine 05/01/2020 4:26 Atherosclerotic Heart Results for this EGFR, S/P PM CDT Disease [place] Coronary proc edure are in Artery With [...] Phon e Number [facility]- [address] [place] [address] [place] [address] System in [place] [address] (ABNORMAL) Creatinine with Estimated GFR (05/09/2020 10:15 AM CDT) Analysis Performed At Patho logist Time Signature Creatinine 2.04 (H) 0.74 - 05/09/2020 [place] 1.35 mg/dL 11:03 AM CDT eGFR-Black/Afri 36 (L) >=60 05/09/2020 [place] can Nepalese mL/min/BSA 11:03 AM CDT Comment: ----ADDITIONAL INFORMATION---- Estimated GFR calculated using the 2009 CKD_EPI creatinine equation. eGFR Non-Black/ 31 (L) >=60 mL/min/BSA 05/09/2020 11:03 AM CDT [place]e Comment: ----ADDITIONAL INFORMATION---- Estimated GFR calculated using the 2009 CKD_EPI creatinine equation. Specimen Anatomical Collection Method Collection Time Receive d Time (Source) Location / / Volume Laterality Blood (Blood, 05/09/2020 10:15 05/09/2020 Venous) AM CDT 10:17 AM CDT Shlomo Ojeda APRN, C.N.P. LAB BLOOD ADD-ON Performing Organization Address City/[facility] Code Phon e Number [facility]- [address] [place] [address], [place] [address] [place] [address] System in [place] [address] (ABNORMAL) BUN (Blood Urea Nitrogen) [...] C.N.P. LAB BLOOD ADD-ON Performing Organization Address City/[facility]/ZIP Code Phon e Number [facility]- [address] [facility] [place] [address] [place] [address] System in [place] [address] Electrolyte (Chem 4) Panel (05/01/2020 [...] C.N.P. LAB BLOOD ADD-ON Performing Organization Address City/[facility]/ZIP Code Phon e Number [facility]- [address] [place] [address], [place] [address] [place] [address] System in [place] [facility] (ABNORMAL) Creatinine with Estimated GFR (05/01/2020 4:26 PM CDT) Analysis Performed At [facility] Time Signature Creatinine 1.80 (H) 0.74 - 05/01/2020 [place] 1.35 mg/dL 4:49 PM CDT eGFR-Black/Afri 41 (L) >=60 05/01/2020 [place] can [place]alese mL/min/BSA 4:49 PM CDT Comment: ----ADDITIONAL INFORMATION---- Estimated GFR calculated using the 2009 CKD_EPI creatinine equation. eGFR Non-Black/ 36 (L) >=60 mL/min/BSA 05/01/2020 4:49 PM CDT [place] Comment: ----ADDITIONAL INFORMATION---- Estimated GFR calculated using the 2009 CKD_EPI creatinine equation. Specimen Anatomical Collection Method Collection Time Receive d Time (Source) Location / / Volume Laterality Blood (Blood, 05/01/2020 4:26 PM 05/01/20 4:30 Venous) CDT PM CDT Shlomo Ojeda APRN, C.N.P. LAB BLOOD ADD-ON Performing Organization Address City/State/ZIP Code Phon e Number [facility]- [address] [place] [address], [place] [address] [facility] [place] [address] System in [place] [address] HOLTER MONITOR - IN CLINIC [place]IGHT (05/01/2020 4:03 PM CDT) [facility] gist Method Time Signature AF Count 0 count HOLTER SENTINEL Recording Date HOLTER SENTINEL VE Percent 33 percent HOLTER Beats SENTINEL Max Heart Rate 94 bpm HOLTER SENTINEL Max Heart Rate [id number] HOLTER Time SENTINEL Tachycardia 0 count HOLTER Runs SENTINEL VT Runs 21 count HOLTER SENTINEL VE Max Per [id number] HOLTER Hour Time SENTINEL SVE Max Per 19 count HOLTER Hour SENTINEL VT Longest 4 beats HOLTER SENTINEL SVE Percent 0 percent HOLTER Beats SENTINEL VT Max Rate [id number] HOLTER Time SENTINEL Bradycardia 0 count HOLTER Runs SENTINEL Min Heart Rate 60 bpm HOLTER SENTINEL Holter Pauses 0 count HOLTER SENTINEL SVT Runs 0 count HOLTER SENTINEL VT Longest [id number] HOLTER Time SENTINEL Min Heart Rate 07025235073099 HOLTER Time SENTINEL VE Total Beats 33,762 count HOLTER SENTINEL SVE Total 180 count HOLTER Beats SENTINEL Analysis Date 20,200,805 HOLTER SENTINEL VE Max Per 1,903 count HOLTER Hour SENTINEL Mean Heart 70 bpm HOLTER Rate SENTINEL VT Max Rate 134 bpm HOLTER SENTINEL SVE Max Per [id number] HOLTER Hour Time SENTINEL Specimen (Source) Anatomical [...] Failure (HCC) - Primary Atherosclerotic Heart Disease [place] Cor onary Artery With Other Forms Angina Pectoris (Angina Equivalent) (HCC) Diabetes Mellitus Type 2 (HCC) Hypertension Essential Primary Chronic Kidney Disease Stage 3 Glomerula r Filtration Rate 30 To 59 (HCC) Bradycardia Abnormal Computed Tomography documented in this encounter Additional Health Concerns Assessment Noted Time PHQ-9 Depression Total Score: 18 04/28/2018 11:27 AM C DT documented as of this encounter Care Teams Railway Track Worker Relationship Specialty Start Date End Date Chris Billings M.B.B.S., M.D. PCP - General Family Medicine 01/10/20 05/21/[address] [place] [address] [place] CadenceKO[place] [phone] documented as of this encounter
--- OUTSIDE RECORDS SUMMARY | 2022-05-27 12:04 | XMS_ITS | Encounter Summary ---
:1945 Author Organization [facility] Address [address] [place] [address] Care Team Providers Name Role Phone Chris Billings M.D. Primary Care Provider [phone] Reason for Referral Outpatient (Routine) - Closed Specialty Diagnoses / Procedures Referred By Contact Refer red To Contact Diagnoses Diabetes Mellitus Type 2 With Diabetic Neuropathy (HCC) Pancreatitis Chronic (HCC) Exocrine Pancreatic Insufficiency Keisha oLpez APRN, [facility] Procedures EUS C.N.P., M.S.N. [address] [place] [address] Referral ID Status Reason Start Date Expiration Date Visits Requ ested Visits Authorized [id number] Closed 12/17/2019 12/16/2020 1 1 Reason for Visit Outpatient (Routine) - Closed Specialty Diagnoses / Procedures Referred By Contact Refer red To Contact Diagnoses Diabetes Mellitus Type 2 With Diabetic Neuropathy (HCC) Pancreatitis Chronic (HCC) Exocrine Pancreatic Insufficiency Keisha Lopez APRN, [facility] Procedures EUS C.N.P., M.S.N. [address] [place], [place] [address] Referral ID Status Reason Start Date Expiration Date Visits Requ ested Visits Authorized [id number] Closed 12/17/2019 12/16/2020 1 1 Encounter Details Date Type Department Care Team Description 03/07/2020 Hospital Division of Keisha Lopez Type 2 With Diabetic Neuropathy (HCC); Encounter Gastroenterology in [place], [place], Pancreat itis Chronic (HCC); [place], [place] CShayna, M.S.N. Exocrine Pancreatic Insufficiency (HCC) [address] [facility] [address] [place] [address] [phone] Social History Tobacco Use Types Packs/Day Years [...] do you attend islam or Never 2021 lutheran services? Do you [...] completed or the highest Martin, MEd, MANAGER GARDEN, CAYDEN) degree you have received? Sex Assigned [...] through Care Everywhere. About Your Endoscopic Ultrasound (Wolof)documented in this encounter Medications at Time of [...] once Atherosclerotic Heart for 1 dose. 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 6 kit 3 8 05/01/2020 (FREESTYLE ILEANA 14 DAY SENSOR) kit gemfibroziL (LOPID) 600 Take 1 tablet by 0 200811/06/2021 mg tablet mouth. isosorbide mononitrate Take 1 tablet (30 mg 90 tablet 3 05/01/2020 (IMDUR) 30 mg 24 hr total) by mouth tabletIndications: daily. 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 ? - No specimens collected. Narrative [facility] - 03/07/2020 12:45 PM CDT Gonda 2 [...] Organization Address City/State/ZIP Code Phon e Number [facility] NA (ABNORMAL) Glucose, POCT (03/07/2020 9:38 AM CDT) Analysis Performed At Patho logist Time Signature Glucose, POCT, 219 (H) 70 - 140 03/07/2020 [facility] B mg/dL 9:40 AM CDT Site Capillary 03/07/2020 [facility] 9:40 AM CDT Specimen Anatomical Collection Method Collection Time Receive d Time (Source) Location / / Volume Laterality Blood 03/07/2020 9:38 AM 0 9:40 CDT AM CDT Unknown Provider LAB POCT ORDERABLES-MANUAL Performing Organization Address City/State/ZIP Code Phon e Number POC RST RESTORATIONIST [address] [place] [address] OUTPATIENT LABS [facility] [place], [place] [address] [place] [address] documented in this encounter [...] documented as of this encounter Care Teams Marine Operations Coordinator Relationship Specialty Start Date End Date Chris Billings M.B.B.S., M.D. PCP - General Family Medicine 01/10/20 05/21/[address] [place] [address] [place] Marc [phone] documented as of this encounter
--- OUTSIDE RECORDS SUMMARY | 2022-05-27 12:04 | XMS_ITS | Encounter Summary ---
:1945 Author Organization [facility] Address [address] [place] [address] Care Team Providers Name Role Phone Chris Billings M.D. Primary Care Provider [phone] Reason for Visit Reason Comments Pancreas Vitamin D & Hgb A1c results Encounter Details Date Type Department Care Team Description 03/27/2020 Clinical Division of Parminder, Pancreas (Vitnaomy in Communication Gastroenterology in [place], D & Hgb A1c [place], [place] M.D. results) [address] [facility] [address] [place] [address] [place] [address] Social History Tobacco Use Types Packs/Day Years [...] do you attend restorationist or Never 2021 rastafarian services? Do you [...] have completed or the highest Martin, MEd, CASE THERAPIST, CAYDEN) degree you have received? Sex Assigned at Date Recorded Male 05/21/2018 2:34 PM CDT documented as of this encounter Miscellaneous Notes Telephone Encounter - Daphney Batista R.N. - 03/27/2020 10:29 AM CDT SUBJECTIVE CHIEF COMPLAINT / REASON FOR CALL Pancreas (Vitamin D & Hgb A1c results) Information Discussed Updated patient per Dr. Zurita, Vitamin D level is now normal. Hemoglobin A1c remains elevated. He has been seen by our colleagues in Diabetes Clinic and should follow their recommendations to optimize glycemic control. Patient voiced understanding and said he continues to follow with the Diabetic Clinic. No questions or concerns at this time. PLAN Disposition/Recommendation: per the above Information/Education: patient/caller [...] as of this encounter Care Teams Associate Account Executive Relationship Specialty Start Date End Date Chris Billings M.B.B.S., M.D. PCP - General Family Medicine 01/10/20 05/21/[address] [place] [address] [place] [phone] documented as of this encounter
--- OUTSIDE RECORDS SUMMARY | 2022-05-27 12:04 | XMS_ITS | Encounter Summary ---
:1945 Author Organization [facility] Address [address] [place] [address] Care Team Providers Name Role Phone Chris Billings M.D. Primary Care Provider [phone] Reason for Visit Appointment Request (Routine) - Closed Specialty Diagnoses / Referred By Contact Referred To Procedures Contact Gastroenterology and Diagnoses Pancreatitis Chronic (HCC) Emil Zurita [facility]at[facility] [place] [address] [place] [address] Referral ID Status Reason Start Date Expiration Date Visits Requ ested Visits Authorized [id number] Closed 02/02/2020 02/01/2021 1 1 Encounter Details Date Type Department Care Team Description 03/13/2020 Office Visit Division of Greyson Zurita Ch Gastroenterology in [place] (HCC) (Primary Dx) [place], [place] [address] [place] [address] [address] [place] [phone] Social History Tobacco Use Types Packs/Day Years [...] do you attend sikh or Never 2021 moravian services? Do you [...] have completed or the highest Martin, MEd, ON CALL, CAYDEN) degree you have received? Sex Assigned [...] in the morning. Stool consistency is between Gregory 5 in 6. There is no blood [...] PM CDT 25-Hydroxy D 30 ng/mL 03/14/2020 [facility] Total 2:46 PM CDT Comment: ----REFERENCE VALUE---- 25-HYDROXY D TOTAL (D2+D3) Optimum level s in the healthy population are 20-50, patients with bone disease may benefit from higher levels within this r stan. ----ADDITIONAL INFORMATION---- This test was developed and its performa nce characteristics determined by [facility] in a manner consistent with CLIA requirements. This test has not been cleared or approved by the [place] d and Drug Administration. Specimen Anatomical Collection Method Collection Time Receive d Time (Source) Location / / Volume Laterality Blood (Blood, 03/13/2020 12:19 03/14/2020 7:41 Venous) PM CDT AM CDT Emil Zurita M.D. LAB BLOOD ADD-ON Performing Organization Address City/[facility] Code Phon e Number [facility] [address] AYALA [address] [facility] [place] [address] Laboratory Medicine and Pathology [address] [...] M.D. LAB BLOOD ADD-ON Performing Organization Address City/[facility]/ZIP Code Phon e Number [facility] - [address] [place] [address] [address] [facility] [address] Laboratories-[facility] [address] documented in this encounter Visit Diagnoses Diagnosis Pancreatitis Chronic (HCC) - Primary documented in this encounter Additional Health Concerns Assessment Noted Time PHQ-9 Depression Total Score: 18 04/28/2018 11:27 AM C DT documented as of this encounter Care Teams Core Microarchitect Relationship Specialty Start Date End Date Chris Billings M.B.B.S., M.D. PCP - General Family Medicine 01/10/20 05/21/[address] [place] [phone] documented as of this encounter
--- OUTSIDE RECORDS SUMMARY | 2022-05-27 12:04 | XMS_ITS | Encounter Summary ---
:1945 Author Organization [facility] Address [address] [place] [address] Care Team Providers Name Role Phone Chris Billings M.D. Primary Care Provider +1 [phone] Reason for Referral Outpatient (Routine) - Closed Specialty Diagnoses / Procedures Referred By Contact Refer red To Contact Endocrinology Carlos [facility] M.[facility] Ph.D. [address] [place] [phone] Referral ID Status Reason Start Date Expiration Date Visits Requ ested Visits Authorized [id number] Closed 03/17/2020 03/17/2021 1 1 Reason for Visit Outpatient (Routine) - Closed Specialty Diagnoses / Procedures Referred By Contact Madelaine castillo To Contact Endocrinology Diagnoses Diabetes Mellitus Type 2 With Diabetic Neuropathy (HCC) Diarrhea Fatigue Emil Zurita M.D. [facility] [address] [place] [phone] Referral ID Status Reason Start Date Expiration Date Visits Requ ested Visits Authorized [id number] Closed 02/17/2020 02/16/2021 1 1 Encounter Details Date Type Department Care Team Description 03/17/2020 Comprehensive Visit Division of Carlos Kendall Diabetes Mellitus Type 2 With Diabetic Neuropathy (HCC); Endocrinology in [place]; [facility] Ph.[facility] Fatigue [address] [place] [phone] Social History Tobacco Use Types Packs/Day Years [...] you attend oriental orthodox or Never 2021 episcopalian services? Do you [...] have completed or the highest Martin, MEd, SPIKE MACHINE FEEDER, [place]) degree you have received? Sex [...] too much. He has not seen an sales operations assistant for a while but the his sales operations assistant is living very close to his place [...] 20 7:07 Venous) CDT AM CDT Carlos Kednall M.D., Ph.D. LAB BLOOD ADD-ON Performing Organization Address City/State/ZIP Code Phon e Number [facility] - [address] [place], [place] [address] [facility] [place] [address] Laboratories-[facility] [address] C-Peptide (04/12/2020 8:14 AM CDT) athologist Signature C-Peptide, S 3.1 1.1 - 4.4 04/13/2020 [facility] ng/mL 8:56 AM CDT Specimen Anatomical Collection Method Collection Time Receive d Time (Source) Location / / Volume Laterality Blood (Blood, 04/12/2020 8:14 AM 04/13/20 20 8:20 Venous) CDT AM CDT Carlos Kendall M.D., Ph.D. LAB BLOOD ADD-ON Performing Organization Address City/State/ZIP Code Phon e Number [facility] [address] [place], [place] [address] [place] [address] CENTER [facility] [place] [address] Laboratory Medicine and Pathology [address] [...] e Number [facility]- [address] [place] [address] [place] [address] System in [place] [address] Sodium (04/12/2020 8:14 [...] Phon e Number [facility]- [address] [place] [address] [place] [address] System in [place] 2199 [facility] (ABNORMAL) CBC without Differential [...] e Number [facility]- [address] [place] [address] [place] [address] System in [place] 2199 [facility] (ABNORMAL) Lipid Panel (04/12/2020 [...] Phon e Number [facility]- [address], [place] [address] [place] [address] System in [place] [address] ALT (Alanine Aminotransferase) (04/12/2020 8:14 AM CDT) [facility] gist Method Time Signature Alanine 16 [...] e Number [facility]- [address] [place] [address] [place] [address] System in [place] [address] AST (Aspartate Aminotransferase) [...] Ph.D. LAB BLOOD ADD-ON Performing Organization Address City/State/[facility] Code Phon e Number [facility]- [address]199 [place] [address] [place] [address] System in [place] [facility] (ABNORMAL) Creatinine with Estimated GFR (04/12/2020 8:14 AM CDT) Analysis Performed At Patho logist Time Signature Creatinine 1.42 (H) 0.74 - 04/12/2020 [place] 1.35 mg/dL 9:08 AM CDT eGFR-Black/Afri 55 (L) >=60 04/12/2020 [facility] can [place] mL/min/BSA 9:08 AM CDT Comment: ----ADDITIONAL INFORMATION---- Estimated GFR calculated using the 2009 CKD_EPI creatinine equation. eGFR Non-Black/ 48 (L) >=60 mL/min/BSA 04/12/2020 9:08 AM CDT [facility] [place] Comment: ----ADDITIONAL INFORMATION---- Estimated GFR calculated using the 2009 CKD_EPI creatinine equation. Specimen Anatomical Collection Method Collection Time Receive d Time (Source) Location / / Volume Laterality Blood (Blood, 04/12/2020 8:14 AM 04/12/20 8:31 Venous) CDT AM CDT Carlos Kendall M.D., Ph.D. LAB BLOOD ADD-ON Performing Organization Address City/State/ZIP Code Phon e Number [facility]- [address] [facility] [place] [address] [place] [address] System in [place] [address] (ABNORMAL) Hemoglobin A1c [...] Ph.D. LAB BLOOD ADD-ON Performing Organization Address City/[facility]/ZIP Code Phon e Number [facility]- [address] [place] [address] [place] [address] System in [place] 2199 [facility] (ABNORMAL) Glucose, Fasting (04/12/2020 [...] e Number [facility]- [address] [place] [address] [place] [address] System in [place] [address]199 [facility] documented in this encounter Visit Diagnoses Diagnosis 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) Diarrhea Fatigue documented in this encounter Additional Health Concerns Assessment Noted Time PHQ-9 Depression Total Score: 18 04/28/2018 11:27 AM C DT documented as of this encounter Care Teams Cyber Defense Forensics Analyst Relationship Specialty Start Date End Date Chris Billings M.B.B.S., M.D. PCP - General Family Medicine 01/10/20 05/21/[address] [place] [address] [place] [phone] documented as of this encounter
--- OUTSIDE RECORDS SUMMARY | 2022-05-27 12:04 | XMS_ITS | Encounter Summary ---
:1945 Author Organization [facility] Address [address] [place] [address] Care Team Providers Name Role Phone Chris Billings M.D. Primary Care Provider +1 [phone] Encounter Details Date Type Department Care Team Description 03/13/2020 Hospital Encounter Department of Parminder, Pancreat itis Chronic Laboratory Medicine Rhoda Stein (HCC) and Pathology, [address] [place] [address], in [place], [place] [address] [place] [address] [place], [place] (Work) [phone] Social History Tobacco Use Types Packs/Day Years [...] you attend latter day or Never 2021 sikhism services? Do you [...] have completed or the highest Martin, MEd, WEB ANALYTICS DEVELOPER, [place]) degree you have received? Sex [...] once Atherosclerotic Heart for 1 dose. 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 6 [...] by mouth tabletIndications: daily. 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 [...] performa nce characteristics determined by [facility] in a manner consistent with CLIA [...] City/State/ZIP Code Phon e Number [facility] [address] [place], [place] [address] SUPPORT [facility] [place] [address] Laboratory Medicine and Pathology [address] [...] [facility] - [address] [place], [place] [address] [facility] [place] [address] Laboratories-[facility] [address] documented in this encounter Visit Diagnoses Diagnosis Pancreatitis Chronic (HCC) documented in this encounter Additional Health Concerns Assessment Noted Time PHQ-9 Depression Total Score: 18 04/28/2018 11:27 AM C DT documented as of this encounter Care Teams Gill Tender Relationship Specialty Start Date End Date Chris Billings M.B.B.S., M.D. PCP - General Family Medicine 01/10/20 05/21/[address] [place] [phone] documented as of this encounter
--- OUTSIDE RECORDS SUMMARY | 2022-05-27 12:04 | XMS_ITS | Encounter Summary ---
:1945 Author Organization [facility] Address [address] [place] [address] Care Team Providers Name Role Phone Chris Billings M.D. Primary Care Provider [phone] Encounter Details Date Type Department Care Team Description 03/30/2020 Clinical Communication Department of Chris Terry [facility], Lorri Tavarez, Clinic, in [place] 300 [facility] 300 [facility] [place] [phone] Social History Tobacco Use Types Packs/Day Years [...] do you attend sikh or Never 2021 anglican services? Do you [...] have completed or the highest Martin, MEd, FOSTER CARE CASE MANAGER, [place]) degree you have received? [...] documented as of this encounter Care Teams Microwave Technician Relationship Specialty Start Date End Date Chris Billings M.B.B.S., M.D. PCP - General Family Medicine 01/10/20 05/21/[address] [place] [address] [place] [phone] documented as of this encounter
--- OUTSIDE RECORDS SUMMARY | 2022-05-27 12:04 | XMS_ITS | Encounter Summary ---
:1945 Author Organization [facility] Address [address] [place] [address] Care Team Providers Name Role Phone Chris Billings M.D. Primary Care Provider [phone] Reason for Referral Outpatient (Routine) - Closed Specialty Diagnoses / Procedures Referred By Contact Refer red To Contact Endocrinology Diagnoses Diabetes Mellitus Type 2 With Diabetic Neuropathy (HCC) Diarrhea Fatigue Emil Zurita M.D. [facility] [address] [place], [place] [phone] Referral ID Status Reason Start Date Expiration Date Visits Requ ested Visits Authorized [id number] Closed 02/17/2020 02/16/2021 1 1 Encounter Details Date Type Department Care Team Description 02/10/2020 Clinical Communication Division of Parminder Gastroenterology in [place], [place] [address] [facility] [address] [place] [phone] Social History Tobacco Use Types Packs/Day Years [...] do you attend scientologist or Never 2021 religion services? Do you belong to any clubs or No 10/09/2021 organizations such as scientologist groups, unions, fraPearlfection or athletic groups, or school groups? How [...] have completed or the highest Martin, MEd, STAFFING ADMINISTRATOR, [place]) degree you have received? Sex [...] BM's in the morning (down from 5-6) [place] 6 (was [place] 7) No blood in his stool Since [...] With 03/13/2020 (clinic) Diabetic Neuropathy (Approxi mate), ([facility]) Expires: Diarrhea 02/14/2023 Fatigue documented as [...] City/State/ZIP Code Phon e Number [facility] - [address] [place], [place] [address] [facility] [place] [address] Laboratories-[facility] [address] (ABNORMAL) GI Pathogen [...] using the FDA-cl eared FilmArray GI Panel ([employer] Semi-Urgent This is a semi-urgent result [facility] - ([place]) [facility] Specimen Anatomical Collection Method Collection Time Receive d Time (Source) Location / / Volume Laterality Stool (Stool) 02/24/2020 5:00 AM 02/25/20 20 CDT 12:05 PM CDT Resulting Agency Comment Mailed In Specimen Emil Zurita M.D. LAB MICROBIOLOGY - GENERAL O RDERABLES Performing Organization Address City/State/ZIP Code Phon e Number [facility] - [address] [place], [place] [address] [facility] [place] [address] Laboratories-[facility] [address] documented in this encounter Visit Diagnoses Diagnosis 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) - Primary Diarrhea Fatigue documented in this encounter Additional Health Concerns Assessment Noted Time PHQ-9 Depression Total Score: 18 04/28/2018 11:27 AM C DT documented as of this encounter Care Teams Tree Trimming Line Technician Relationship Specialty Start Date End Date Chris Billings M.B.B.S., M.D. PCP - General Family Medicine 01/10/20 05/21/[address] [place] [phone] documented as of this encounter
--- OUTSIDE RECORDS SUMMARY | 2022-05-27 12:04 | XMS_ITS | Encounter Summary ---
:1945 Author Organization [facility] Address [address] [place] [address] Care Team Providers Name Role Phone Chris Billings M.D. Primary Care Provider +1 [phone] Encounter Details Date Type Department Care Team Description 04/04/2020 Orders Only Division of Ran Eduardo Clinical Research Gastroenterology in [address] [facility] W Exam (Primary Dx) [place], [place] [address] [facility] [phone] [place] [address] [phone] Social History Tobacco Use Types Packs/Day Years [...] you attend oriental orthodox or Never 2021 sikh services? Do you [...] have completed or the highest Martin, MEd, DETASSELER, [place]) degree you have received? Sex Assigned [...] documented as of this encounter Care Teams Lending Advisor Relationship Specialty Start Date End Date Chris Billings M.B.BDenise, MDahlia. PCP - General Family Medicine 01/10/20 05/21/[address] [place] [address] [place] [address] documented as of this encounter
--- OUTSIDE RECORDS SUMMARY | 2022-05-27 12:04 | XMS_ITS | Encounter Summary ---
:1945 Author Organization [facility] Address [address] [place] [address] Care Team Providers Name Role Phone Chris Billings M.D. 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 Do you [...] have completed or the highest Martin, MEd, AUDIOMETRIC TECHNICIAN, CAYDEN) degree you have received? Sex [...] 05/01/2020 reader (FREESTYLE ILEANA 14 DAY READER) [facility] flash glucose sensor Use as directed. 6 [...] by mouth tabletIndications: daily. 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 LAB BLOOD ADD-ON Performing Organization Address City/[facility]/ZIP Code Phon e Number [facility] - [address] [place], [place] [address] [place] [address] Laboratories-[facility] [address] C-Peptide (04/12/2020 [...] Ph.D. LAB BLOOD ADD-ON Performing Organization Address City/[facility]/ZIP Code Phon e Number [facility] [address] [place], [place] [address] [facility] [place] [address] Laboratory Medicine and Pathology [address] [...] Phon e Number [facility]- [address] [place] [address] [place] [address] System in [place] [address] [place] [address] Sodium (04/12/2020 8:14 AM CDT) athologist Signature [...] Phon e Number [facility]- [address] [place] [address] [place] [address] System in [place] [address] (ABNORMAL) CBC without Differential (04/12/2020 [...] Phon e Number [facility]- [address] [place] [address] [place] [address] System in [place] [address] [facility] (ABNORMAL) Lipid Panel (04/12/2020 8:14 AM CDT) [...] Phon e Number [facility]- [address] [place] [facility] [place] [address] [place] [facility] [place] [address] System in [place] [address] ALT (Alanine Aminotransferase) (04/12/2020 8:14 AM CDT) [facility] gist Method Time Signature Alanine 16 7 - 55 04/12/2020 [place] Aminotransferase U/L 9:08 AM CDT (ALT), P Specimen Anatomical Collection Method Collection Time Receive d Time (Source) Location / / Volume Laterality Blood (Blood, 04/12/2020 8:14 AM 04/12/20 20 8:31 Venous) CDT AM CDT Authorizing Provider Result Deloris Kendall M.D., Ph.D. LAB BLOOD ADD-ON Performing Organization Address City/[facility]/ZIP Code Phon e Number [facility]- [address] [place] [address] [facility] [place] [address] System in [place] [address] AST (Aspartate Aminotransferase) (04/12/2020 8:14 AM CDT) [facility] Method Time Signature Aspartate 17 8 - 48 04/12/2020 [place] Aminotransferase U/L 9:08 AM CDT (AST), P Specimen Anatomical Collection Method Collection Time Receive d Time (Source) Location / / Volume Laterality Blood (Blood, 04/12/2020 8:14 AM 04/12/20 20 8:31 Venous) CDT AM CDT Carlos Kendall M.D., Ph.D. LAB BLOOD ADD-ON Performing Organization Address City/State/ZIP Code Phon e Number [facility]- [address] [place] [address] [place] [address] System in [place] [address] [facility] (ABNORMAL) Creatinine with Estimated GFR (04/12/2020 8:14 AM CDT) Analysis Performed At Patho logis Time Signature Creatinine 1.42 (H) 0.74 - 04/12/2020 [place] 1.35 mg/dL 9:08 AM CDT eGFR-Black/Afri 55 (L) >=60 04/12/2020 [place] can Citizen [place] mL/min/BSA 9:08 AM CDT Comment: ----ADDITIONAL INFORMATION---- Estimated GFR calculated using the 2009 CKD_EPI creatinine equation. eGFR Non-Black/ 48 (L) >=60 mL/min/BSA 04/12/2020 9:08 AM CDT [place] Citizen [place] Comment: ----ADDITIONAL INFORMATION---- Estimated GFR calculated using the 2009 CKD_EPI creatinine equation. Specimen Anatomical Collection Method Collection Time Receive d Time (Source) Location / / Volume Laterality Blood (Blood, 04/12/2020 8:14 AM 04/12/20 8:31 Venous) CDT AM CDT K Randy Kendall M.D., Ph.D. LAB BLOOD ADD-ON Performing Organization Address City/State/ZIP Code Phon e Number [facility]- [address] [place] [address] [place] [address] System in [place] [address] [facility] (ABNORMAL) Hemoglobin A1c (04/12/2020 8:14 AM CDT) Analysis Per[facility] Time Signature Hemoglobin A1c, 10.3 (H) 4.2 [...] Phon e Number [facility]- [address] [place] [address] [place] [facility] [place] [address] System in [place] [address] (ABNORMAL) Glucose, Fasting [...] Phon e Number [facility]- [address] [place] [facility] [place] [address] [place] [address] System in [place] [address] T4 (Thyroxine), Total Only (04/12/2020 [...] Organization Address City/State/ZIP Code Phon e Number [facility] - [address] [place], [place] [address] [facility] [place] [address] Laboratories-[facility] [address] T4 (Thyroxine), [...] supplements. ??If the result does not [facility] clinical observations, repeat testing after patient refrains fr om the use of supplements for at least 12 hours. Specimen Anatomical Collection Method Collection Time Receive d Time (Source) Location / / Volume Laterality Blood (Blood, 04/12/2020 8:14 AM 04/12/20 8:31 Venous) CDT AM CDT Chris Blackmon M.D. LAB BLOOD ADD-ON Performing Organization Address City/State/ZIP Code Phon e Number [facility]- [address] [place] [address] [facility] [address] System in [place] [address] documented in this encounter Visit Diagnoses Diagnosis Fatigue 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) documented in this encounter Additional Health Concerns Assessment Noted Time PHQ-9 Depression Total Score: 18 04/28/2018 11:27 AM C DT documented as of this encounter Care Teams Security Researcher Relationship Specialty Start Date End Date Chris Billings M.B.B.S., MDahlia. PCP - General Family Medicine 01/10/20 05/21/[address] [facility] [place] [address] documented as of this encounter
--- OUTSIDE RECORDS SUMMARY | 2022-05-27 12:04 | XMS_ITS | Encounter Summary ---
:1945 Author Organization [facility] Address [address] [place] [address] Care Team Providers Name Role Phone Chris Billings M.D. Primary Care Provider +1 [phone] Encounter Details Date Type Department Care Team [...] you attend oriental orthodox or Never 2021 orthodoxy services? Do you [...] completed or the highest Martin, MEd, MASTER IN CHANCERY, [place]) degree you have received? Sex Assigned [...] as of this encounter Care Teams Inspector Motor Vehicles Relationship Specialty Start Date End Date Chris Billings M.B.B.S., M.D. PCP - General Family Medicine 01/10/20 05/21/[address] [place] [address] [place] [phone] documented as of this encounter
--- OUTSIDE RECORDS SUMMARY | 2022-05-27 12:04 | XMS_ITS | Encounter Summary ---
:1945 Author Organization [facility] Address [address] [place] [address] Care Team Providers Name Role Phone Chris Billings M.D. Primary Care Provider +1 [phone] Reason for Referral Outpatient (Routine) - Closed Specialty Diagnoses / Procedures Referred By Contact Refer red To Contact Infectious Diseases Diagnoses Pancreatitis Chronic (HCC) Exocrine Pancreatic Insufficiency Diarrhea Emil uZrita [place] M.D. [address] [place] [address] Referral ID Status Reason Start Date Expiration Date Visits V isits Requested Authorized [id number] Closed Specialty 03/10/2020 03/10/2021 1 1 Services Required Reason for Visit Reason Comments Pancreas Encounter Details Date Type Department Care Team Description 03/10/2020 Clinical Communication Division of Kasey Zurita Gastroenterology in Rhoda Stein [place], [place] [address] [facility] [address] [place] [phone] Social History Tobacco Use Types Packs/Day Years [...] do you attend religious or Never 2021 islam services? Do you [...] have completed or the highest Martin, MEd, UNIVERSITY ADMINISTRATIVE ASSISTANT, [place]YDEN) degree you have received? [...] as of this encounter Care Teams Chemical Etching Processor Relationship Specialty Start Date End Date Chris Billings M.B.B.S., M.D. PCP - General Family Medicine 01/10/20 05/21/[address] [place] [phone] documented as of this encounter
--- OUTSIDE RECORDS SUMMARY | 2022-05-27 12:04 | XMS_ITS | Encounter Summary ---
:1945 Author Organization [facility] Address [address] [place] [address] Care Team Providers Name Role Phone Chris Billings M.D. 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 Do you belong to any clubs or No 10/09/2021 organizations such as yarsani groups, unions, fraAzuki ([employer]oz[employer]/Geng[employer]) or athletic groups, or school groups? How [...] completed or the highest Martin, MEd, PAINTER ROUGH, CAYDEN) degree you have received? Sex Assigned [...] daily SYRINGE-NEEDLE,INSULIN,0 0 .5 ML (INSULIN [facility]YRINGE [facility]) albuterol (for_ACCUNEB) Take 2.5 mg by 0 [...] once Atherosclerotic Heart for 1 dose. 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), Hypertension Essential Primary, Fatigue dilTIAZem CD (CARDIZEM Take 1 capsule (240 90 capsule 3 12/2803/15/2020 CD/CARTIA XT) 240 mg 24 mg total) by mouth hr capsuleIndications: daily. 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) flash glucose scanning Use as directed 1 each 0 09/18/20 18 05/01/2020 reader (FREESTYLE ILEANA 14 DAY READER) [facility] flash glucose sensor Use as directed. 6 [...] by mouth tabletIndications: daily. 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), Diabetes Mellitus Type 2 ([facility]), Hypertension Essential Primary lisinopriL Take 1 [...] Yersinia Culture, Feces (02/24/2020 5:00 AM CDT) [facility] Method Time Signature Yersinia YERSINIA 03/19/2020 DTL Culture, F MAK (A) 1:22 PM CDT Comment: This test may be reportable to your stat e health department. Please review specific state and local [facility] for reporting information. Semi-Urgent Result. Semi-Urgent This is a semi-urgent result [facility] S Specimen Anatomical Collection Method Collection Time Receive d Time (Source) Location / / Volume Laterality Stool 02/24/2020 5:00 AM 0 CDT 11:34 AM CDT Resulting Agency Comment Mailed In Specimen Emil Zurita M.D. LAB MICROBIOLOGY - GENERAL O ODELLERASHAY Performing Organization Address City/State/ZIP Code Phon e Number [facility] - [facility] [place], [place] [address] [facility] [place] [address] Laboratories-[facility] [address] [facility] (ABNORMAL) GI Pathogen Panel, PCR, Feces (02/24/2020 [...] using the FDA-cl eared FilmArray GI Panel ([facility] Semi-Urgent This is a semi-urgent result [facility] - () [facility] Specimen Anatomical Collection Method Collection Time Receive d Time (Source) Location / / Volume Laterality Stool (Stool) 02/24/2020 5:00 AM 02/25/20 20 CDT 12:05 PM CDT Resulting Agency Comment Mailed In Specimen Emil Zurita M.D. LAB MICROBIOLOGY - GENERAL O GERMAN Performing Organization Address City/State/ZIP Code Phon e Number [facility] - [address] [place], [place] [address] [facility] [place] [address] [facility] [address] documented in this encounter Visit Diagnoses Diagnosis 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) Diarrhea Fatigue documented in this encounter Additional Health Concerns Assessment Noted Time PHQ-9 Depression Total Score: 18 04/28/2018 11:27 AM C DT documented as of this encounter Care Teams Non Destructive Testing Technician Relationship Specialty Start Date End Date Chris Billings M.B.B.S., M.D. PCP - General Family Medicine 01/10/20 05/21/[address] [place] [address] [place] [address] documented as of this encounter
--- OUTSIDE RECORDS SUMMARY | 2022-05-27 12:04 | XMS_ITS | Encounter Summary ---
:1945 Author Organization [facility] Address [address] [place] [address] Care Team Providers Name Role Phone Chris Billings M.D. Primary Care Provider +1 [phone] Encounter Details Date Type Department Care Team Description 03/20/2020 Orders Only Division of Ran Eduardo Pancreatitis Chronic (HCC) (Primary Dx); Gastroenterology in [address] [facility] Clinical Research Exam [place], [place] [address] [facility] [address] [place] [address] [phone] Social History Tobacco Use Types Packs/Day Years [...] do you attend nondenominational or Never 2021 adventist services? Do you [...] have completed or the highest Martin, MEd, MECHANIC RECOVERY, CAYDEN) degree you have received? Sex Assigned [...] documented as of this encounter Care Teams Visualization Developer Relationship Specialty Start Date End Date Chris Billings M.B.B.S., Rhoda. PCP - General Family Medicine 01/10/20 05/21/[address] [place] [phone] documented as of this encounter
--- OUTSIDE RECORDS SUMMARY | 2022-05-27 12:04 | XMS_ITS | Encounter Summary ---
:1945 Author Organization [facility] Address [address] [place] [address] Care Team Providers Name Role Phone Chirs Billings M.D. Primary Care Provider +1 [phone] Reason for Visit Reason Comments Medication Problem low energy Encounter Details Date Type Department Care Team Description 03/15/2020 Office Visit Department of [facility] Chris Billings etjeffry Mellitus Type 2 Without Complication (HCC) (Primary Dx); Medicine, Lorri Tavarez, Atheros clerotic [facility] Disease [facility] [place] Coronary Artery Without Angina Pectoris; Clinic, in [place] Hypertension Essential Primary; [place] [facility] [address] [facility] [place], [place] [phone] Social History Tobacco Use Types Packs/Day [...] do you attend jewish or Never 2021 jainism services? Do you [...] completed or the highest Martin, MEd, MOLD SHOP SUPERVISOR, CAYDEN) degree you have received? Sex [...] CHIEF COMPLAINT / REASON FOR VISIT Jonnathan Csota is a 74 y.o. male who presents [...] Complication (HCC) #2 Atherosclerotic [facility] [place] Coronary Artery Without Angina Pectoris #3 Hypertension [...] minutes of this visit was spent in [id number] care, review of medications and counseling. documented [...] City/State/ZIP Code Phon e Number [facility] - [address] [place], [place] [address] [facility] [place] [address] Laboratories-[facility] [address] T4 (Thyroxine), [...] supplements. ??If the result does not [facility] clinical observations, repeat testing after patient refrains fr om the use of supplements for at least 12 hours. Specimen Anatomical Collection Method Collection Time Receive d Time (Source) Location / / Volume Laterality Blood (Blood, 04/12/2020 8:14 AM 04/12/20 20 8:31 Venous) CDT AM CDT Chris Blackmon M.D. LAB BLOOD ADD-ON Performing Organization Address City/State/ZIP Code Phon e Number [facility]- [address] [place] [address] [place] [address] System [address] [place] [address] (ABNORMAL) S-TSH (Thyroid-Stimulating Hormone [...] supplements. ??If the result does not [facility] clinical observations, repeat testing after patient refrains fr om the use of supplements for at least 12 hours. Specimen Anatomical Collection Method Collection Time Receive d Time (Source) Location / / Volume Laterality Blood (Blood, 03/15/2020 3:02 PM 03/15/20 20 5:45 Venous) CDT PM CDT Chris Blackmon M.D. LAB BLOOD ADD-ON Performing Organization Address City/State/ZIP Code Phon e Number [facility]- [address] [place] [address] [place] [address] System in [place] [address] documented in this encounter Visit Diagnoses Diagnosis Diabetes Mellitus Type 2 Without Complic ation (HCC) - Primary Atherosclerotic [facility] [place] Coronary Artery Without Angina Pectoris Hypertension Essential Primary Fatigue documented in this encounter Additional Health Concerns Assessment Noted Time PHQ-9 Depression Total Score: 18 04/28/2018 11:27 AM C DT documented as of this encounter Care Teams Manager Clinical Informatics Relationship Specialty Start Date End Date WaribChris guerrero M.B.B.S., MDahlia. PCP - General Family Medicine 01/10/20 05/21/[address] [place] [address] [place], [place] [phone] documented as of this encounter
--- OUTSIDE RECORDS SUMMARY | 2022-05-27 12:04 | XMS_ITS | Encounter Summary ---
:1945 Author Organization [facility] Address [address] [place] [address] Care Team Providers Name Role Phone Chris Billings M.D. Primary Care Provider +1 [phone] Encounter Details Date Type Department Care Team Description 02/16/2020 Clinical Communication Division of Parminder Gastroenterology in Rhoda Stein [place], [place] [address] [facility] [address] [place] [address] [phone] Social History Tobacco Use Types Packs/Day Years [...] do you attend caodaism or Never 2021 taoism services? Do you [...] have completed or the highest Martin, MEd, MACHINE SANDER, CAYDEN) degree you have received? Sex Assigned at Date Recorded Male 05/21/2018 2:34 PM CDT documented as of this encounter Plan of Treatment Not on filedocumented as of this encounter Visit Diagnoses Not on filedocumented in this encounter Additional Health Concerns Assessment Noted Time PHQ-9 Depression Total Score: 18 04/28/2018 11:27 AM C DT documented as of this encounter Care Teams Lithographic Plate Maker Apprentice Relationship Specialty Start Date End Date Chris Billings M.B.B.S., Rhoda. PCP - General Family Medicine 01/10/20 05/21/[address] [place] [phone] documented as of this encounter
--- OUTSIDE RECORDS SUMMARY | 2022-05-27 12:04 | XMS_ITS | Encounter Summary ---
:1945 Author Organization [facility] Address [address] [place] [address] Care Team Providers Name Role Phone Chris Billings M.D. Primary Care Provider +1 [phone] Encounter Details Date Type Department Care Team Description 02/27/2020 Orders Only Division of Parminder, Diarrhea (Prima ry Dx) Gastroenterology in Rhoda Stein [place], [place] [address] [facility] [address] [place] [phone] [phone] Social History Tobacco Use Types Packs/Day Years [...] have completed or the highest Martin, MEd, COMPOSER TEACHING ARTIST, CAYDEN) degree you have received? Sex [...] as of this encounter Care Teams Product Marketing Specialist Relationship Specialty Start Date End Date Chris Billings M.B.BDenise, MDahlia. PCP - General Family Medicine 01/10/20 05/21/[address] [place] [address] [place] [phone] documented as of this encounter
--- OUTSIDE RECORDS SUMMARY | 2022-05-27 12:04 | XMS_ITS | Encounter Summary ---
:1945 Author Organization [facility] Address [address] [place] [address] Care Team Providers Name Role Phone Chris Billings M.D. Primary Care Provider [phone] [phone] Reason for Visit Reason Comments other Outpatient (Routine) - Closed Specialty Diagnoses / Procedures Referred By Contact Refer red To Contact Infectious Diseases Diagnoses Pancreatitis Chronic (HCC) Exocrine Pancreatic Insufficiency Diarrhea [facility] [place] [address] [place] [address] Referral ID Status Reason Start Date Expiration Date Visits V isits Requested Authorized [id number] Closed Specialty 03/10/2020 03/10/2021 1 1 Services Required Encounter Details Date Type Department Care Team Description 03/13/2020 Comprehensive Visit Section of Freda Zurita M.D. [address] [place] [phone] Pancreatitis Chronic (HCC); Infectious Diseases Katelyn Dixon M.D. [address] [place] [phone] Exocrine Pancreatic Insufficiency (HCC); in [facility] [address] [place] [phone] Social History Tobacco Use Types Packs/Day Years [...] do you attend taoist or Never 2021 restoration services? Do you [...] have completed or the highest Martin, MEd, SLOPE HOIST OPERATOR, CAYDEN) degree you have received? Sex [...] Master's degree (e.g., MA, MS, Martin, MEd, SLOPE HOIST OPERATOR, CAYDEN) Occupational History Employer: RETIRED Social [...] week Gets together: Twice a week Attends restoration service: 1 to 4 times per year [...] documented as of this encounter Care Teams Mechanical Maintenance Relationship Specialty Start Date End Date Chris Billings M.B.B.S., M.D. PCP - General Family Medicine 01/10/20 05/21/[address] [place] [address] [place] [id number] documented as of this encounter
--- OUTSIDE RECORDS SUMMARY | 2022-05-27 12:04 | XMS_ITS | Encounter Summary ---
:1945 Author Organization [facility] Address [address] [place] [address] Care Team Providers Name Role Phone Chris Billings M.D. Primary Care Provider +1 [phone] Encounter Details Date Type Department Care Team Description 02/10/2020 Clinical Communication Department of Chris Terry [facility], Lorri Tavarez, Clinic, in [place] 300 [facility] 300 [facility] [place] [phone] Social History Tobacco Use Types Packs/Day Years [...] do you attend hinduism or Never 2021 church services? Do you [...] level of school Master's degree (e.g., M uJana, MS, 03/23/2019 you have completed or the highest Martin, MEd, DESK LIEUTENANT, CAYDEN) degree you have received? Sex Assigned at Date Recorded Male 05/21/2018 2:34 PM CDT documented as of this encounter Miscellaneous Notes Telephone Encounter - Kira Sorenson - 02/10/2020 11:35 AM CDT Reason for Communication: Patient calling, has had continuous diarrhea for about a month. Has discussed with GI in [place] and has appts down there in February [...] documented as of this encounter Care Teams Hospitality Job Titles Relationship Specialty Start Date End Date Chris Billings M.B.BDenise, MDahlia. PCP - General Family Medicine 01/10/20 05/21/[address] [place], [place] [address], [place] [phone] documented as of this encounter
--- OUTSIDE RECORDS SUMMARY | 2022-05-27 12:04 | XMS_ITS | Encounter Summary ---
:1945 Author Organization [facility] Address [address] [place] [address] Care Team Providers Name Role Phone Chris Billings M.D. Primary Care Provider +1 [phone] Encounter Details Date Type Department Care Team Description 03/29/2020 Clinical Communication Department of Chris Terry [facility], Lorri Tavarez, Clinic, in [place] 300 [facility] 300 [facility] [place] [phone] Social History Tobacco Use Types Packs/Day Years [...] do you attend zoroastrian or Never 2021 catholic services? Do you [...] have completed or the highest Martin, MEd, QUILL MACHINE TENDER, CAYDEN) degree you have received? [...] phone call with Dr. Billings. Current : [phone] Can Nursing/Provider leave a detailed message: Yes [...] documented as of this encounter Care Teams Solo Musician Relationship Specialty Start Date End Date Chris Billings M.B.B.S., M.D. PCP - General Family Medicine 01/10/20 05/21/[address] [place] [phone] documented as of this encounter
--- OUTSIDE RECORDS SUMMARY | 2022-05-27 12:04 | XMS_ITS | Encounter Summary ---
:1945 Author Organization [facility] Address [address] [place] [address] Care Team Providers Name Role Phone Chris Billings M.D. Primary Care Provider +1 [phone] Reason for Visit Reason Comments COVID Nurse Line Encounter Details Date Type Department Care Team Description 03/29/2020 Nurse Triage Department of [facility] Kanwal Brock COVID Nurse Line Medicine, [facility], [facility] [address] [phone] Social History Tobacco Use [...] do you attend hindu or Never 2021 anabaptist services? Do you [...] have completed or the highest Martin, MEd, KENO CLERK, CAYDEN) degree you have received? Sex [...] to be swabbed for COVID-19, sent to [facility] located [address] [facility]. Take frontage road to back of [...] if re-testing is necessary. Education Resources: https://www .cdc.gov/coronavirus/2019-ncov/ur-oqa-ikg-sick/xyhcb-vtxb-kayu.html Education: patient/caregiver Patient/caregiver able to teach back Patient agreeable to plan of care: Yes The following references were used: [facility] novel coronavirus (COVID- 19) resources Nursing judgement documented in this encounter Plan of Treatment Not on filedocumented as of this encounter Visit Diagnoses Not on filedocumented in this encounter Additional Health Concerns Assessment Noted Time PHQ-9 Depression Total Score: 18 04/28/2018 11:27 AM C DT documented as of this encounter Care Teams Bundling Machine Operator Relationship Specialty Start Date End Date Chris Billings M.B.BRhoda Walker. PCP - General Family Medicine 01/10/20 05/21/[address] [place] [phone] documented as of this encounter
--- OUTSIDE RECORDS SUMMARY | 2022-05-27 12:04 | XMS_ITS | Encounter Summary ---
:1945 Author Organization [facility] Address [address] [place] [address] Care Team Providers Name Role Phone Chris Billings M.D. Primary Care Provider +1 [phone] Encounter Details Date Type Department Care Team Description 03/07/2020 Anesthesia Event Division of Zhang White APRN, SWEETIE [address] [place] [phone] Gastroenterology in Natasha Barrios M.D. [address] [place] [phone] [place], [place] [address] [place], [place] [phone] Anesthesia Record Procedure Summary Procedure Name Responsible Anesthesia Start Anesthesia Stop Anesthesiologist Time Time ENDOSCOPIC Zhang White APRN, 03/07/20 1101 03/07/20 1146 ULTRASOUND (EUS) BLEACH CHLORINATOR Events Date Time Event Comment 03/07/2020 0950 [...] h andoff to the receiving staff during [facility] we 1. Identified the patient 2. [...] do you attend quaker or Never 2021 methodist services? Do you [...] have completed or the highest Martin, MEd, NEUROLOGY TECHNOLOGIST, CAYDEN) degree you have received? Sex Assigned at Date Recorded Male 05/21/2018 2:34 PM CDT documented as of this encounter OR Notes Anesthesia Postprocedure Evaluation - Zhang White APRN, CRNA - 03/07/2020 11:46 AM CDT Patient: Jonnathan Costa Procedure Summary Date: 03/07/20 Room / Location: Division of Gastroenterology in [place], [place] Anesthesia Start: 1101 Anesthesia Stop: 1146 [...] (HCC) [K86.81] Location: Division of Gastroenterology in [place], [place] Pertinent components of the patient's history [...] with patient /legal guardian or through an hourly sign language interpreter. Risks/Benefits/Alternatives of Blood transfusion discussed with patient [...] documented as of this encounter Care Teams Separator Inserter Relationship Specialty Start Date End Date Chris Billings M.B.B.S., M.D. PCP - General Family Medicine 01/10/20 05/21/[address] [place] [address] [place] [phone] documented as of this encounter
--- OUTSIDE RECORDS SUMMARY | 2022-05-27 12:04 | XMS_ITS | Encounter Summary ---
:1945 Author Organization [facility] Address [address] [place] [address] Care Team Providers Name Role Phone Chris Billings M.D. Primary Care Provider +1 [phone] Reason for Visit Reason Onset Date Comments Outpatient COVID-19 Testing 03/29/2020 Encounter Details Date Type Department Care Team Description 03/29/2020 External Outreach Department of Chad Pettit Infect rozina Upper Internal Medicine in J, D.O. Respiratory (Primary [place], [place] [address]) [address] [facility] [place] [phone] Social History Tobacco Use Types Packs/Day Years [...] do you attend baptism or Never 2021 worship services? Do you [...] completed or the highest Martin, MEd, TAX ACCOUNTING MANAGER, CAYDEN) degree you have received? Sex [...] RNA, V Symptomatic (03/29/2020 12:07 PM CDT) [facility] Method Time Signature SARS-CoV-2 Swab, 03/30/2020 [...] is performed using the Aptima SARS-CoV-2 assay ([employer] which has received Emergency Use Authori zation (EUA) by the U.S. Food and Drug Administration. Fact sheets for this Emergency Use Autho rization (EUA) assay can be found at the following links: For Healthcare Providers: https://www.[employer] a.gov/media/170123/download For Patients: https://www.fda.gov/media/ 263213/download Specimen Anatomical Collection Method Collection Time Receive d Time (Source) Location / / Volume Laterality Varies 03/29/2020 12:07 03/29/2020 8:01 (Nasopharynx) PM CDT PM CDT Chad Pettit D.O. LAB MICROBIOLOGY - GENERAL O RDERABLES Performing Organization Address City/[facility] Phon e Number [facility]- [address] [place] [address] [place] [address] [address] documented in this encounter Visit Diagnoses Diagnosis Infection Upper Respiratory - Primary documented in this encounter Additional Health Concerns Infection Onset Date Last Indicated Resolved Time COVID19 Pending 03/29/2020 03/29/2020 03/30/2020 4:56 AM CDT Assessment Noted Time PHQ-9 Depression Total Score: 18 04/28/2018 11:27 AM C DT documented as of this encounter Care Teams Paranormal Investigator Relationship Specialty Start Date End Date Chris Billings M.B.B.S., Rhoda. PCP - General Family Medicine 01/10/20 05/21/[address] [place] [address] [place] [address] documented as of this encounter
--- OUTSIDE RECORDS SUMMARY | 2022-05-27 12:05 | XMS_ITS | Encounter Summary ---
:1945 Author Organization [facility] Address [address] [place] [address] Care Team Providers Name Role Phone Chris Billings M.D. 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 [facility] Procedures ECG 12 Lead [address] [place] [address] Referral ID Status Reason Start Date Expiration Date Visits Requ ested Visits Authorized [id number] Closed 12/16/2019 12/15/2020 1 1 Encounter Details Date Type Department Care Team Description 01/20/2020 Hospital Department of Ailyn Sims Atherosc lerotic Heart Encounter Laboratory Pato Duque Disease [place] Medicine in [address] Coronary Artery With [place], [place], [place] Other Forms [place] [address] Pectoris (Angina [address] [phone] Equivalent) ([facility]) [place] (Work) [address] [phone] Social History Tobacco Use Types Packs/Day Years [...] do you attend pentecostal or Never 2021 baptism services? Do you [...] have completed or the highest Martin, MEd, HELICOPTER UTILITY AIRCREWMAN, CAYDEN) degree you have received? Sex Assigned [...] once Atherosclerotic Heart for 1 dose. 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 Equivalent) ([facility]) documented in this encounter Results ECG 12 Lead (01/20/2020 8:49 AM CDT) P athologist Signature Ventricular Rate 66 BPM MUSE ECG/Min [place] Interval 158 ms MUSE QRSD Interval 96 ms MUSE QT Interval 444 ms MUSE QTC Interval 465 ms MUSE P [place] 2 degrees MUSE R [place] -61 degrees MUSE T Wave [place] -25 degrees MUSE Specimen Anatomical Collection Method [...] encounter Visit Diagnoses Diagnosis Atherosclerotic Heart Disease [place] Cor onary Artery With Other Forms Angina Pectoris (Angina Equivalent) (HCC) documented in this encounter Additional Health Concerns Assessment Noted Time PHQ-9 Depression Total Score: 18 04/28/2018 11:27 AM C DT documented as of this encounter Care Teams Hand Button Splitter Relationship Specialty Start Date End Date Chris Billings M.B.B.S., M.D. PCP - General Family Medicine 01/10/20 05/21/[address] [place] [address] [place] [address] documented as of this encounter
--- OUTSIDE RECORDS SUMMARY | 2022-05-27 12:05 | XMS_ITS | Encounter Summary ---
:1945 Author Organization [facility] Address [address] [place] [address] Care Team Providers Name Role Phone Chris Billings M.D. 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 [facility] Procedures CT Retrospective Heartflow FFRct [address] [place] [address] Referral ID Status Reason Start Date Expiration Date Visits Requ ested Visits Authorized [id number] Closed 01/27/2020 01/26/2021 1 1 Encounter Details Date Type Department Care Team Description 01/27/2020 Hospital Encounter Department of Robbin Bañuelos Heart Radiology in Koko Champagne M.D. Disease [place] Coronary [place], [address] [place] [address] Artery With Other Forms [place], [place] Angina Pectoris (Angina [address] [address] Equivalent) ([facility]) [place], [place] [phone] [phone] (Work) Social History Tobacco Use Types [...] completed or the highest Martin, MEd, CROP NUTRITION SCIENTIST, CAYDEN) degree you have received? Sex Assigned [...] SYRINGE-NEEDLE,INSULIN,0 0 .5 ML (INSULIN SYRINGE [facility]) albuterol (for_ACCUNEB) Take 2.5 mg [...] once Atherosclerotic Heart for 1 dose. 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 6 [...] by mouth tabletIndications: daily. 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) ([facility]), Diabetes Mellitus Type 2 ([facility]), Hypertension Essential Primary lisinopriL Take 1 tablet [...] HEARTFLOW FFRCT (most inpatients PM CDT Disease [place] this p rocedure and all Coronary Artery [...] encounter Visit Diagnoses Diagnosis Atherosclerotic Heart Disease [place] Cor onary Artery With Other Forms Angina Pectoris (Angina Equivalent) (HCC) documented in this encounter Additional Health Concerns Assessment Noted Time PHQ-9 Depression Total Score: 18 04/28/2018 11:27 AM C DT documented as of this encounter Care Teams Web Development Manager Relationship Specialty Start Date End Date Chris Billings M.B.B.S., M.D. PCP - General Family Medicine 01/10/20 05/21/[address] [place] [address] [place] [phone] documented as of this encounter
--- OUTSIDE RECORDS SUMMARY | 2022-05-27 12:05 | XMS_ITS | Encounter Summary ---
:1945 Author Organization [facility] Address [address] [place] [address] Care Team Providers Name Role Phone Chris Billings M.D. 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 [facility] Cardiovascular Disease Pato Blackmon [address] [place] [address] Referral ID Status Reason Start Date Expiration Date Visits Requ ested Visits Authorized [id number] Closed 01/12/2020 01/11/2021 1 1 Encounter Details Date Type Department Care Team Description 01/20/2020 Comprehensive Visit Department of Christopher Bañuelosrotic Heart Cardiovascular Koko Champagne Disease Nativ e Diseases in [place] Coronary Artery With [place] [address] Other Forms Angina [address] Pectoris (Angina EXETER, [facility], Equivalent) (HC [facility]) [id number] [place] [phone] [address] Social History Tobacco Use Types Packs/Day [...] do you attend bahai or Never 2021 taoism services? Do you [...] have completed or the highest Martin, MEd, CRM DYNAMICS DEVELOPER, CAYDEN) degree you have received? Sex [...] quit 1979. 8. Asthma, mild. Seen by energy broker 11/2019. 9. History of pancreatitis. - CT [...] as low-sodium diet. We recommended resumption of [place] 3 fish oil to improve his triglycerides. [...] provider or endocrinology. Continue management asthma with energy broker. Pancreatitis and anemia with primary care provider. 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 CARDIOLOGY CONSULTATION Location: [facility]. Referring Provider: Chris Billings M.B.B.S., M.D. SUBJECTIVE CHIEF COMPLAINT/REASON FOR CONSULT Follow-up (stress echo) HISTORY OF PRESENT ILLNESS Mr. Jonnathan Costa is a very pleasant 74 y.o. male [facility], shortness [...] kylie wore and was exposed to [place], 70% disabled. Cardiovascular Risk Factors: 1. Smoking [...] mouth daily. ??? flash glucose scanning reader (GoGoVanSTYLE ILEANA 14 DAY READER) misc Use as [...] g by mouth daily. Not currently on [place] 3 fish oil, metformin short-acting diltiazem or [...] Master's degree (e.g., MA, MS, Martin, MEd, CRM DYNAMICS DEVELOPER, CAYDEN) Occupational History Employer: RETIRED Social Needs [...] week Gets together: Twice a week Attends taoism service: 1 to 4 times per year [...] ??? Ventricular Rate ECG/Min 01/20/2020 66 ??? OK Interval 01/20/2020 158 ??? QRSD Interval 01/20/2020 96 ??? QT Interval 01/20/2020 444 ??? QTC Interval 01/20/2020 465 ??? P [place] 01/20/2020 2 ??? R [place] 01/20/2020 -61 ??? T Wave [place] 01/20/2020 -25 Hospital Outpatient Visit on 01/13/2020 [...] 12/15/2019 2.62 ??? FEV1/FVC 12/15/2019 67.58 ??? QMQ12-43% 12/15/2019 1.41 ??? PEF PRE 12/15/2019 7.01 ??? FET PRE 12/15/2019 12.56 ??? DLCO 12/15/2019 17.97 ??? VA 12/15/2019 6.35 ??? Y2GdiPzcd 12/15/2019 96.00 ??? PulseRest 12/15/2019 85.00 ??? Q3VkjIazb 12/15/2019 93.00 ??? PulseExer 12/15/2019 103.00 ??? [...] 39 ??? ENOComment 12/15/2019 Patient takes Albuterol, [facility] Outpatient Visit on 11/18/2019 Component [...] ??? Ventricular Rate ECG/Min 10/20/2019 73 ??? OK Interval 10/20/2019 142 ??? QRSD Interval 10/20/2019 110 ??? QT Interval 10/20/2019 416 ??? QTC Interval 10/20/2019 459 ??? P [place] 10/20/2019 35 ??? R [place] 10/20/2019 -40 ??? T Wave [place] 10/20/2019 48 There may be more visits [...] acute radiographic abnormality. The ASCVD Risk score ([place] Jr., et al., 2013) failed to calculate for the following reasons: The patient has a prior DE or stroke diagnosis Pertinent cardiac (or related) [...] for this EGFR, S/P AM CDT Disease [place] Coronary proc edure are in Artery With Other Forms the results Angina Pectoris (Angina sect ion. Equivalent) (HCC) documented in this encounter Results (TTE) 2D ECHO DOPPLER COLOR (04/17/2020 10:06 AM CDT) [facility] gist Method Time Signature Ejection Fraction [...] effusion. For the complete report, see the [facility] [employer]. Narrative 04/17/2020 1:23 PM CDT For the complete report, see the [facility] [employer]. Final Impressions 1. Mildly enlarged left [...] 04/17/2020 For the complete report, see the [facility] [employer]. Final Impressions 1. Mildly enlarged left [...] , this study is being sent to [facility] for coronary FFRct analysis. ??FFRct res ults [...] , this study is being sent to [facility] for coronary FFRct analysis. FFRct resul ts will be reported separately when analysis by [facility] is complete Koko Bañuelos M.D. IMG CT PROCEDURES (ABNORMAL) Creatinine with Estimated GFR (01/20/2020 10:52 AM CDT) P athologist Signature Creatinine 1.27 0.74 - 01/20/2020 [place] 1.35 mg/dL 11:32 AM CDT eGFR-Black/Afric 63 >=60 01/20/2020 [place] an [place] mL/min/BSA 11:32 AM CDT Comment: ----ADDITIONAL INFORMATION---- Estimated GFR calculated using the 2009 CKD_EPI creatinine equation. eGFR Non-Black/ 55 (L) >=60 mL/min/BSA 01/20/2020 11:32 AM CDT [place] Comment: ----ADDITIONAL INFORMATION---- Estimated GFR calculated using the 2009 CKD_EPI creatinine equation. Specimen Anatomical Collection Method Collection Time Receive d Time (Source) Location / / Volume Laterality Blood (Blood, 01/20/2020 10:52 01/20/2020 Venous) AM CDT 11:00 AM CDT Koko Bañuelos M.D. LAB BLOOD ADD-ON Performing Organization Address City/State/ZIP Code Phon e Number [facility] [address] [place] [address] [place] [address] System in [place] [address] documented in this encounter Visit Diagnoses Diagnosis Atherosclerotic Heart Disease [place] Cor onary Artery With Other Forms Angina Pectoris (Angina Equivalent) (HCC) Atherosclerotic Heart Disease [place] Cor onary Artery With Other Forms Angina Pectoris (Angina Equivalent) (HCC) Atherosclerotic Heart Disease [place] Cor onary Artery With Other Forms Angina Pectoris (Angina Equivalent) (HCC) documented in this encounter Additional Health Concerns Assessment Noted Time PHQ-9 Depression Total Score: 18 04/28/2018 11:27 AM C DT documented as of this encounter Care Teams Application Systems Administrator Relationship Specialty Start Date End Date Chris Billings M.B.B.S., M.D. PCP - General Family Medicine 01/10/20 05/21/[address] [place] [address] [place] [phone] documented as of this encounter
--- OUTSIDE RECORDS SUMMARY | 2022-05-27 12:05 | XMS_ITS | Encounter Summary ---
:1945 Author Organization [facility] Address [address] [place] [address] Care Team Providers Name Role Phone Ewa Alejandro M.D. 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 [facility] Procedures ECG 12 Lead [address] [place], [place] [address] Referral ID Status Reason Start Date Expiration Date Visits Requ ested Visits Authorized [id number] Closed 12/16/2019 12/15/2020 1 1 Outpatient (Routine) - Closed Specialty Diagnoses / Procedures Referred By Contact Refer red To Contact Pulmonary Medicine Ailyn Sims [place] M.D. [address] [place] [address] Referral ID Status Reason Start Date Expiration Date Visits Requ ested Visits Authorized [id number] Closed 12/15/2019 12/14/2020 1 1 Reason for Visit Outpatient (Routine) - Closed Specialty Diagnoses / Procedures Referred By Contact Refer red To Contact Pulmonary Medicine Ailyn Sims [place] M.D. 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 Do you [...] completed or the highest Martin, MEd, COOK HELPER PRESERVES, CAYDEN) degree you have received? Sex Assigned [...] SYRINGE-NEEDLE,INSULIN, 0 0.5 ML (INSULIN SYRINGE MISC) mvetpr-cyuuwdhy-aslnynr Take 2 capsules by 240 capsule 3 [...] once Atherosclerotic Heart for 1 dose. Disease [place] Coronary Artery With Other Forms Angina Pectoris (Angina Equivalent) ([facility]), Hypertension Essential Primary, Fatigue dilTIAZem CD (CARDIZEM Take 1 capsule (120 30 capsule 11 11/2801/12/2020 CD/CARTIA XT) 120 mg 24 mg total) by mouth hr capsule daily. flash glucose scanning Use as directed 1 each 0 09/18/20 18 05/01/2020 reader (FREESTYLE ILEANA 14 DAY READER) [facility] flash glucose sensor Use [...] by mouth tabletIndications: daily. Atherosclerotic Heart Disease [place] Coronary Artery With [...] add Imdur 30 mg once daily. Formal yjpb-zx-yzzf consultation and consideration of need for cavity at catheterization will be deferred for 3 months due to COVID-19 constraints and patient's relatively stable hemodynamics. Patient will followup with local MD/FIBERGLASS GRINDER in 2-4 weeks to finalize other non-pulmonary [...] Signature Ventricular Rate 66 BPM MUSE ECG/Min [place] Interval 158 ms MUSE QRSD Interval 96 ms MUSE QT Interval 444 ms MUSE QTC Interval 465 ms MUSE P [place] 2 degrees MUSE R [place] -61 degrees MUSE T Wave [place] -25 degrees MUSE Specimen Anatomical Collection Method [...] Asthma Extrinsic Moderate (HCC) Atherosclerotic Heart Disease [place] Cor onary Artery With Other Forms Angina Pectoris (Angina Equivalent) (HCC) documented in this encounter Additional Health Concerns Assessment Noted Time PHQ-9 Depression Total Score: 18 04/28/2018 11:27 AM C DT documented as of this encounter Care Teams Plumbing Contractor Relationship Specialty Start Date End Date Ewa Alejandro M.D. PCP - General 03/13/17 01/09/20 [address] [address] documented as of this encounter
--- OUTSIDE RECORDS SUMMARY | 2022-05-27 12:05 | XMS_ITS | Encounter Summary ---
:1945 Author Organization [facility] Address [address] [place] [address] Care Team Providers Name Role Phone Chris Billings M.D. Primary Care Provider [phone] [phone] Encounter Details Date Type Department Care Team Description 01/21/2020 Orders Only Department of [facility] Chris Billings I., [facility] [address] [facility] [address] [place], [place] [address] [phone] (Wo rk) Social History Tobacco Use Types [...] do you attend restoration or Never 2021 anabaptism services? Do you [...] have completed or the highest Martin, MEd, SURGICAL MANAGER, CAYDEN) degree you have received? Sex [...] of this encounter Care Teams Director Of Residence Life Relationship Specialty Start Date End Date Chris Billings M.B.BMauroSMauro, MDahlia. PCP - General Family Medicine 01/10/20 05/21/[address] [place] [address] [place] [phone] documented as of this encounter
--- OUTSIDE RECORDS SUMMARY | 2022-05-27 12:05 | XMS_ITS | Encounter Summary ---
:1945 Author Organization [facility] Address [address] [place] [address] Care Team Providers Name Role Phone Chris Billings M.D. Primary Care Provider +1 [phone] Encounter Details Date Type Department Care Team Description 01/07/2020 Clinical Communication [facility] in [place] [address] [place] [phone] Social History Tobacco Use Types Packs/Day Years [...] do you attend mandaen or Never 2021 temple services? Do you [...] have completed or the highest Martin, MEd, BRANCH SERVICE ASSOCIATE, CAYDEN) degree you have received? Sex [...] his primary provider place a referral to [facility] to repeat A Stress Echo and also a Cardiopulmonary (V02) Exercise test after being on new cardiology medications for 1 month following abnormal findings on 11/2019. Please call patient once referral is complete so he can contact [facility] to schedule testing PLAN Disposition/Recommendation: notified provider and awaiting recommendations Information/Education: patient/caller able to teach back Caller agreeable to plan of care: yes The following references were used: other per patient Telephone Encounter - Shanon Glover - 01/07/2020 8:53 AM CDT Reason for Communication: Patient is calling in and stated he was seen in [facility] in [facility] and that he was told to set [...] documented as of this encounter Care Teams Patient Access Specialist Relationship Specialty Start Date End Date Chris Billings M.B.B.S., MDahlia. PCP - General Family Medicine 01/10/20 05/21/[address] [place] [address] [place] [phone] documented as of this encounter
--- OUTSIDE RECORDS SUMMARY | 2022-05-27 12:05 | XMS_ITS | Encounter Summary ---
:1945 Author Organization [facility] Address [address] [place] [address] Care Team Providers Name Role Phone Chris Billings M.D. Primary Care Provider [phone] [phone] Reason for Visit Reason Comments [facility] Nurse Line Encounter Details Date Type Department Care Team Description 02/02/2020 Clinical Division of [facility] [place] Communication Gastroenterology in [place], [place] [address] [facility] [address] [place] [address] [place] [address] Social History Tobacco Use Types Packs/Day Years [...] do you attend taoism or Never 2021 muslim services? Do you [...] have completed or the highest Martin, MEd, HOUSEHOLD APPLIANCES SERVICE TECHNICIAN, CAYDEN) degree you have received? Sex [...] reply to: Debi Galarza Scheduling Contact Number: [phone] documented in this encounter Plan of Treatment Not on filedocumented as of this encounter Visit Diagnoses Not on filedocumented in this encounter Additional Health Concerns Assessment Noted Time PHQ-9 Depression Total Score: 18 04/28/2018 11:27 AM C DT documented as of this encounter Care Teams Clinic Director Relationship Specialty Start Date End Date Chris Billings M.B.B.S., M.D. PCP - General Family Medicine 01/10/20 05/21/[address] [place] [address] [place] [phone] documented as of this encounter
--- OUTSIDE RECORDS SUMMARY | 2022-05-27 12:05 | XMS_ITS | Encounter Summary ---
:1945 Author Organization [facility] Address [address] [place] [address] Care Team Providers Name Role Phone Chris Billings M.D. Primary Care Provider [phone] Reason for Visit Reason Comments COVID Nurse Line Encounter Details Date Type Department Care Team Description 01/24/2020 Clinical Communication Department of DHRUV Bañuelos Nurse Line Cardiovascular Koko Champagne M.D. Diseases in [address] [address] [place], [place] [phone] [address] (Work) [phone] Social History Tobacco Use Types Packs/Day Years [...] do you attend muslim or Never 2021 shinto services? Do you [...] completed or the highest Martin, MEd, SUPERVISOR FURNACE PROCESS, CAYDEN) degree you have received? Sex Assigned [...] to be swabbed for COVID-19, sent to [place], [place] . Because testing is recommended, we will have to delay your appointment for at least 14 days. Care Points provided: STANDARD PRECAUTIONS FOR ALL PATIENTS: Wash hands often with soap and water for at least 20 seconds, especially after blowing your nose, coughing, sneezing, or having been in a public place. If soap and water aren't available, use a hand mergers and acquisitions banker that contains at least 60% alcohol. Avoid [...] essential items or medical care). Educational Resource: https://www.cdc.gov/coronavirus/2019-ncov/dcawsrb-yracijn-jfvl/index.html RECOMMENDATIONS TESTING CRITERIA IS MET: Stay home [...] or 65 years and older. Go to [facility] emergency department if any of the following occur: 1) New shortness of breath at rest, 2) Pain, pressure or tightness unrelated to coughing in the chest, jaw or arm, 3) Newly confused or unable to stay alert and awake. Notify primary care provider if any new or worsening symptoms. Education Resources: https://www.cdc.gov/coronavirus/2019-ncov/cn-dae-ipx-sick/lhkpb-locq-iwtf.html Education: patient/caregiver Patient/caregiver able to teach back [...] pending result? no Route reply to: [facility] SCHEDULING Scheduling Contact Number:[phone] documented in this encounter Plan of Treatment Not on filedocumented as of this encounter Visit Diagnoses Not on filedocumented in this encounter Additional Health Concerns Infection Onset Date Last Indicated Resolved Time COVID19 Pending 01/24/2020 01/24/2020 01/25/2020 12:58 AM CDT Assessment Noted Time PHQ-9 Depression Total Score: 18 04/28/2018 11:27 AM C DT documented as of this encounter Care Teams Launch Commander Harbor Police Relationship Specialty Start Date End Date Chris Billings M.B.B.S., M.D. PCP - General Family Medicine 01/10/20 05/21/[address] [place] [address] KO[place] Marc [phone] documented as of this encounter
--- OUTSIDE RECORDS SUMMARY | 2022-05-27 12:05 | XMS_ITS | Encounter Summary ---
:1945 Author Organization [facility] Address [address] [place] [address] Care Team Providers Name Role Phone Chris Billings M.D. 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 Do you [...] have completed or the highest Martin, MEd, CARTOON DESIGNER, CAYDEN) degree you have received? Sex [...] scanning reader (FREESTYLE ILEANA 14 DAY READER) [facility] Use as directed 1 each 0 ??? flash glucose sensor (FREESTYLE ILEANA 14 DAY SENSOR) kit Use as directed. 6 kit 3 ??? insulin aspart U-100 (NovoLOG FlexPen) 100 unit/mL injection Inject 0-35 Units under the skin asneeded (up to 6/d). ??? insulin glargine (LANTUS) 100 unit/mL injection Inject 44 Units under the skin at bedtime. ??? nlyhps-yinxrfip-sadhvqn (CREON) 6,000-19,000-30,[address] capsule Take 2 capsules by mouthas directed. 2 capsules with meals and 1 with snacks (Patient taking differently: Take 2 capsules bymouth as directed. 3 capsules with meals and 2 with snacks ) 240 capsule 3 ??? losartan (for_COZAAR) 100 mg tablet Take 1 tablet by mouth daily. ??? PEN NEEDLE, DIABETIC [facility] Yani Fine 30 disposable needles. For use with Insulin Pens, 4 times daily ??? SYRINGE-NEEDLE,INSULIN,0.5 ML (INSULIN SYRINGE [facility]) ??? 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 This Telephone Visit was performed during the - emergency, when many states had issued tpoecst-gp-zkfoi orders. documented in this encounter Plan of Treatment Scheduled Referrals Name Type Priority Associated Diagnoses Order S [facility] Cardiovascular Disease Outpatient Routine Atherosclerotic He art Expected: - General cardiology Referral Disease [place] 02/10 consult (clinic) Coronary Artery With (Ap proximate), Other Forms Angina Expires: Pectoris (Angina 01/11/2023 Equivalent) ([facility]) documented as of this encounter Results (ABNORMAL) [...] Phon e Number [facility] [address] [place] [address] [facility] [place] [address] System in [place] [address] [facility] (ABNORMAL) Albumin, Random, Urine (01/13/2020 8:21 AM CDT) [facility] gist Method Time Signature Microalbumin 2002.0 [...] Phon e Number [facility] [address] [place] [address] [place] [address] System in [place] [address] [facility] documented in this encounter Visit Diagnoses Diagnosis Atherosclerotic Heart Disease [place] Cor onary Artery With Other Forms Angina Pectoris (Angina Equivalent) (HCC) Diabetes Mellitus Type 2 (HCC) Hypertension Essential Primary Fatigue documented in this encounter Additional Health Concerns Assessment Noted Time PHQ-9 Depression Total Score: 18 04/28/2018 11:27 AM C DT documented as of this encounter Care Teams Welfare Eligibility Interviewer Relationship Specialty Start Date End Date Chris Billings M.B.B.S., MDahlia. PCP - General Family Medicine 01/10/20 05/21/[address] [place] [address] Teresa BordenKOBI sears [phone] documented as of this encounter
--- OUTSIDE RECORDS SUMMARY | 2022-05-27 12:05 | XMS_ITS | Encounter Summary ---
:1945 Author Organization [facility] Address [address] [place] [address] Care Team Providers Name Role Phone Ewa Alejandro M.D. Primary Care Provider [phone] Reason for Visit Outpatient (Routine) - Closed Specialty Diagnoses / Referred By Contact Referred To Contact Procedures Allergy and Immunology Diagnoses Chronic Cough Shortness Of Breath Asthma Extrinsic Moderate (HCC) [facility] [address] [place] [address] Referral ID Status Reason Start Date Expiration Date Visits Requ ested Visits Authorized [id number] Closed 12/15/2019 12/14/2020 1 1 Encounter Details Date Type Department Care Team Description 12/16/2019 Comprehensive Visit Division of Karley Gillespie Asthma Mild Persistent (HCC) (Primary Dx); Allergic Diseases Pato Strong Abnormal Allergy Skin Test; in [address] Hypertension Essential Primary; [place], [place] Diabetes Mellitus Type 2 Wit h Diabetic Neuropathy (HCC) [address] [facility] [address] [place], [place] [phone] [phone] (Work) [phone] Social History Tobacco Use Types Packs/Day Years [...] do you attend restoration or Never 2021 confucianist services? Do you belong to any clubs or No 10/09/2021 organizations such as restoration groups, unions, [employer] or athletic groups, or school groups? How [...] have completed or the highest Martin, MEd, REPRESENTATIVE, CAYDEN) degree you have received? Sex [...] male remote smoker with history of Agent [place] exposure in 1967, untreated sleep apnea, diabetes, [...] elevated at 64 ppb. [facility] was positive to dust mite, negative to trees, grasses, weeds, molds, cat, dog. Review of environmental history is significant for the absence of any secondhand smoke exposure. There are no pets in the home environment. Bedding is washed at least once weekly. There is ijkd-qo-aafeqygrurwsf in the bedroom. MEDICAL HISTORY Past Medical [...] injection LW Addl Instr:Indicated for: Diabetes ??? clyrib-xlyzbxwd-hfijrhn (CREON) 6,000-19,000-30,[address] capsule Take [...] as of this encounter Care Teams Director Records Management Relationship Specialty Start Date End Date Ewa Alejandro M.D. PCP - General 03/13/17 01/09/[address] [phone] documented as of this encounter
--- OUTSIDE RECORDS SUMMARY | 2022-05-27 12:05 | XMS_ITS | Encounter Summary ---
:1945 Author Organization [facility] Address [address] [place] [address] Care Team Providers Name Role Phone Chris Billings M.D. Primary Care Provider [phone] Reason for Visit Reason Comments Atherosclerotic Heart Disease [place] Coronary Artery O rder for [facility] With Ot Encounter Details Date Type Department Care Team Description 01/20/2020 Clinical Department of Pessmeryl, Atheroscleroti c Heart Communication Cardiovascular [place] S, Disease Yak[place] ve Diseases in [place] Coronary Artery With [address] Ot (Order for [place] [address] [facility]) [place], [address] [place] [phone] [address] Social History Tobacco Use Types Packs/Day [...] do you attend baptist or Never 2021 rastafari services? Do you [...] have completed or the highest Martin, MEd, LINUX SYSTEMS ANALYST, CAYDEN) degree you have received? Sex [...] with IV Contrast scheduled for. Thank you, [facility] Online Services for Referring Providers Appointment Office documented in this encounter Plan of Treatment Not on filedocumented as of this encounter Visit Diagnoses Not on filedocumented in this encounter Additional Health Concerns Assessment Noted Time PHQ-9 Depression Total Score: 18 04/28/2018 11:27 AM C DT documented as of this encounter Care Teams Ferris Wheel Attendant Relationship Specialty Start Date End Date Chris Billings M.B.B.S., M.D. PCP - General Family Medicine 01/10/20 05/21/[address] [place] [address] KOBI Marc [phone] documented as of this encounter
--- OUTSIDE RECORDS SUMMARY | 2022-05-27 12:05 | XMS_ITS | Encounter Summary ---
:1945 Author Organization [facility] Address [address] [place] [address] Care Team Providers Name Role Phone Chris Billings M.D. Primary Care Provider [phone] Encounter Details Date Type Department Care Team Description 01/17/2020 Clinical Communication Department of Koko Bañuelos Cardiovascular Diseases Pato Champagne in [address] [place] [phone] Social History Tobacco Use Types [...] do you attend jainism or Never 2021 denominational services? Do you [...] have completed or the highest Martin, MEd, GEAR GRINDING MACHINE OPERATOR, CAYDEN) degree you have received? Sex Assigned at Date Recorded Male 05/21/2018 2:34 PM CDT documented as of this encounter Miscellaneous Notes Telephone Encounter - Starr Hernandez R.N. - 01/17/2020 2:33 PM CDT INFORMATION DISCUSSED Spoke to patient via telephone call. Patient and show card writer reviewed appointments he had with Dr. Sims and Dr. Billings. Middle School French Teacher reviewed the notes. Patient thought he was to have a Echocardiogram complete. The orders in the system are for Cardiology consult and Electrocardiogram and the notes from the doctors visits reflect Cardiology consult and Electrocardiogram.. Patient transferred to Scheduling to schedule Cardiology consult and Electrocardiogram. ?? PLAN - see above ?? Disposition/Recommendation: Patient repeated directions to show card writer. Education: patient/caller able to teach back Caller agreeable to plan of care: yes The following references were used: provider Dr. Sims and Dr. Billings Telephone Encounter - Awa Parham - 01/17/2020 9:48 AM CDT Reason for Communication: Patient is returning call to [facility] Current Can Nursing/Provider leave a detailed [...] as of this encounter Care Teams Chair Finisher Relationship Specialty Start Date End Date Chris Billings M.B.B.S., M.D. PCP - General Family Medicine 01/10/20 05/21/[address] [place] [address] [place] [phone] documented as of this encounter
--- OUTSIDE RECORDS SUMMARY | 2022-05-27 12:05 | XMS_ITS | Encounter Summary ---
:1945 Author Organization [facility] Address [address] [place] [address] Care Team Providers Name Role Phone Ewa Alejandro M.D. Primary Care Provider [phone] Encounter Details Date Type Department Care Team Description 12/15/2019 Diagnostic Division of Pulmonary Sims, Ailyn Duque, Cough Chronic; Medicine in M.D. Shortness Of Breath; [place], [place] [address] [facility] Asthma Extrinsic Moderate (HCC) [address] [place] [phone] [phone] Social History Tobacco Use Types Packs/Day Years [...] do you attend sabianist or Never 2021 mandaeism services? Do you [...] completed or the highest Martin, MEd, SUPERVISOR MOTORCYCLE REPAIR SHOP, CAYDEN) degree you have received? Sex Assigned [...] Exhaled Nitric Oxide (12/15/2019 9:13 AM CDT) [facility] gist Method Time Signature Exhaled NO 64 [...] as of this encounter Care Teams Security Flex Utility Officer Relationship Specialty Start Date End Date Ewa Alejandro M.D. PCP - General 03/13/17 01/09/20 [address] [facility] [place] [address] documented as of this encounter
--- OUTSIDE RECORDS SUMMARY | 2022-05-27 12:05 | XMS_ITS | Encounter Summary ---
:1945 Author Organization [facility] Address [address] [place] [address] Care Team Providers Name Role Phone Chris Billings M.D. Primary Care Provider [phone] Encounter Details Date Type Department Care Team Description 01/13/2020 Hospital Encounter Department of Chris Billings more Mellitus Laboratory Medicine Lorri Shen, Type 2 (HCC) in [place] [address] [facility] [place] [phone] Social History Tobacco Use Types Packs/Day [...] do you attend buddhism or Never 2021 druze services? Do you [...] completed or the highest Martin, MEd, MANAGER INTERFACE, CAYDEN) degree you have received? Sex Assigned [...] once Atherosclerotic Heart for 1 dose. 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 Pectoris (Angina Equivalent) ([facility]), Diabetes Mellitus Type 2 ([facility]), Hypertension Essential Primary lisinopril Take [...] Number [facility] [address] [place] [address] [facility] [address] System in [place] [address] documented in this encounter Visit Diagnoses Diagnosis Diabetes Mellitus Type 2 (HCC) documented in this encounter Additional Health Concerns Assessment Noted Time PHQ-9 Depression Total Score: 18 04/28/2018 11:27 AM C DT documented as of this encounter Care Teams Cad Intern Relationship Specialty Start Date End Date Chris Billings M.B.B.S., M.D. PCP - General Family Medicine 01/10/20 05/21/[address] [place] [address] KOBI Marc [phone] documented as of this encounter
--- OUTSIDE RECORDS SUMMARY | 2022-05-27 12:05 | XMS_ITS | Encounter Summary ---
:1945 Author Organization [facility] Address [address] [place] [address] Care Team Providers Name Role Phone Chris Billings M.D. 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 [facility] Procedures CT Cardiac Angiogram with Coronary Arteries with IV Contrast [address] [place] [address] Referral ID Status Reason Start Date Expiration Date Visits Requ ested Visits Authorized [id number] Closed 01/20/2020 01/19/2021 1 1 Encounter Details Date Type Department Care Team Description 01/27/2020 Hospital Encounter Department of Pessanha, Atherosc lerotic Heart Radiology, Leanne Champagne M.D. Disease [place] Coronary Building, in [address] Artery With Other Forms [place], [place] Angina Pectori s (Angina [place] [phone] Equivalent) ([facility]) [address] [phone] [place], [place] (Work) [phone] Social History Tobacco Use [...] do you attend moravian or Never 2021 tenriism services? Do you [...] level of school Master's degree (e.g., Nteo Arias MS, 03/23/2019 you have completed or the highest Martin, MEd, RESTORATIVE CARE TECHNICIAN, CAYDEN) degree you have received? Sex [...] mouth hr capsuleIndications: daily. 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 6 [...] by mouth tabletIndications: daily. 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 - 01/28/2020 9:37 AM CDT Name of person contacted: Patient Relationship to patient: Not applicable Call back number: [phone] Sole Trimmer: Not applicable Information provided: Result notes for CT Cardiac Angiogram with Coronary Arteries with IV Contrast and message per Simi Bañuelos MD. Patient verified he is taking isosorbide mononitrate ER 30 mg daily and chlorthalidone 25 mg daily. No additional questions or concerns at time of call. director of personnel/patient received and understood education/information provided: Yes director of personnel/patient agreed to the Plan of Care: Yes documented in this encounter Plan of Treatment Not on filedocumented as of this encounter Procedures Procedure Name Priority Date/Time Associated Diagnosis Comme nts CT CARDIAC RAD - Routine 01/27/2020 3:00 Atherosclerotic Heart Re sults for ANGIOGRAM WITH (most inpatients PM CDT Disease [place] this pr ocedure CORONARY and all Coronary [...] , this study is being sent to [facility] for coronary FFRct analysis. ??FFRct res ults [...] , this study is being sent to [facility] for coronary FFRct analysis. FFRct resul ts will be reported separately when analysis by [facility] is complete Koko SALINAS CT PROCEDURES documented in this encounter Visit Diagnoses Diagnosis Atherosclerotic Heart Disease [place] Cor onary Artery With Other Forms [...] documented as of this encounter Care Teams Traveling Operator Relationship Specialty Start Date End Date Chris Billings M.B.B.S., M.D. PCP - General Family Medicine 01/10/20 05/21/[address] [place] [address] KO[place] Marc [phone] documented as of this encounter
--- OUTSIDE RECORDS SUMMARY | 2022-05-27 12:05 | XMS_ITS | Encounter Summary ---
:1945 Author Organization [facility] Address [address] [place] [address] Care Team Providers Name Role Phone Ewa Alejandro M.D. Primary Care Provider [phone] Reason for Referral Outpatient (Routine) - Closed Specialty Diagnoses / Procedures Referred By Contact Refer red To Contact Diagnoses Chronic Cough Shortness Of Breath Asthma Extrinsic Moderate (HCC) Ailyn Sims M.D. [facility] Procedures Cardiopulmonary (VO2) Exercise Test [address] [place], [place] [phone] Referral ID Status Reason Start Date Expiration Date Visits Requ ested Visits Authorized [id number] Closed 12/15/2019 12/14/2020 1 1 Outpatient (Routine) - Closed Specialty Diagnoses / Procedures Referred By Contact Refer anna To Contact Diagnoses Chronic Cough Shortness Of Breath Asthma Extrinsic Moderate (HCC) Ailyn Sims M.D. Procedures Echo Stress [address] [place], [place] [address] Referral ID Status Reason Start Date Expiration Date Visits Requ ested Visits Authorized [id number] Closed 12/15/2019 12/14/2020 1 1 Reason for Visit Outpatient (Routine) - Closed Specialty Diagnoses / Procedures Referred By Contact Refer red To Contact Diagnoses Chronic Cough Shortness Of Breath Asthma Extrinsic Moderate (HCC) Ailyn Sims M.D. Procedures Echo Stress [address] [place] [phone] Referral ID Status Reason Start Date Expiration Date Visits Requ ested Visits Authorized [id number] Closed 12/15/2019 12/14/2020 1 1 Encounter Details Date Type Department Care Team Description 12/15/2019 Hospital Department of Ailyn Sims Cough Ch ronic; Encounter Cardiovascular [place] Shortness Of Breath; Diseases in [address] [place] [address] Asthma Extrinsic Moderate (HCC) [place], [place] [address] [facility] [address] [place], [place] [phone] (Work) [phone] Social History Tobacco Use Types Packs/Day Years [...] completed or the highest Martin, MEd, AUTO WASH BUFFER, CAYDEN) degree you have received? Sex Assigned [...] SYRINGE-NEEDLE,INSULIN, 0 0.5 ML (INSULIN SYRINGE MISC) fucwxm-rvtahply-fqruvfa Take 2 capsules by 240 capsule 3 [...] reader (FREESTYLE ILEANA 14 DAY READER) [facility] flash glucose sensor Use [...] (HCC) CARDIOPULMONARY (VO2) Routine 12/15/2019 3:33 Cough Manual Machinist hilary Results for this EXERCISE TEST PM CDT Shortness Of procedure are in Breath the results Asthma Extrinsic section. Moderate (HCC) documented in this encounter Results ECHO STRESS 2D WITH COLOR, LIMITED DOPPLER AND CONTRAST (12/15/2019 3:33 PM CDT) [facility] Method Time Signature Ejection Fraction 45 MC [...] effusion. For the complete report, see the [facility] Documents. Narrative 12/15/2019 4:55 PM CDT For the complete report, see the [facility] Documents. Final Impressions 1. Exercise echocardiogram positive [...] 8. O2 uptake data detailed in the [facility] (Cardiopulmonary (VO2) Exercise Test). 9. [...] 8. O2 uptake data detailed in the [facility] Record (Cardiopulmonary (VO2) Exercise Test). 9. [...] documented as of this encounter Care Teams Electrician Supervisor Airplane Relationship Specialty Start Date End Date Ewa Alejandro M.D. PCP - General 03/13/17 01/09/[address] [address] documented as of this encounter
--- OUTSIDE RECORDS SUMMARY | 2022-05-27 12:05 | XMS_ITS | Encounter Summary ---
:1945 Author Organization [facility] Address [address] [place] [address] Care Team Providers Name Role Phone Chris Billings M.D. Primary Care Provider [phone] Encounter Details Date Type Department Care Team Description 01/13/2020 Hospital Encounter Department of Chris Billings more Mellitus Laboratory Medicine Lorri Shen, Type 2 (HCC) in [place] [address] [place] [phone] Social History Tobacco Use Types Packs/Day [...] do you attend jainism or Never 2021 bahai services? Do you [...] completed or the highest Martin, MEd, BARREL RIFLER BROACH, CAYDEN) degree you have received? Sex Assigned [...] once Atherosclerotic Heart for 1 dose. 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) ([facility]), Diabetes Mellitus Type 2 ([facility]), Hypertension Essential Primary lisinopril Take 1 tablet [...] Albumin, Random, Urine (01/13/2020 8:21 AM CDT) [facility] gist Method Time Signature Microalbumin 2002.0 [...] Number [facility]- [address] [place] [address] [facility] [place] [address] System in [place] [address] documented in this encounter Visit Diagnoses Diagnosis Diabetes Mellitus Type 2 (HCC) documented in this encounter Additional Health Concerns Assessment Noted Time PHQ-9 Depression Total Score: 18 04/28/2018 11:27 AM C DT documented as of this encounter Care Teams Work Measurement Engineer Relationship Specialty Start Date End Date Chris Billings M.B.B.S., M.D. PCP - General Family Medicine 01/10/20 05/21/[address] [place] [address] [place] [address] documented as of this encounter
--- OUTSIDE RECORDS SUMMARY | 2022-05-27 12:05 | XMS_ITS | Encounter Summary ---
:[address] [facility] Address [address] [place] [address] Care Team Providers Name Role Phone Chris Billings M.D. Primary Care Provider [phone] Reason for Visit Reason Onset Date Comments Outpatient COVID-19 Testing 01/24/2020 Encounter Details Date Type Department Care Team Description 01/24/2020 External Outreach Department of Collin Cervantes Infectmendez venegas [facility] Medicine, D.O. Respiratory ([place] [address]) [place], [place] [address] [address] [place], [place] [phone] [address] (Work) [phone] Social History Tobacco Use Types Packs/Day Years [...] do you attend adventist or Never 2021 denominational services? Do you [...] have completed or the highest Martin, MEd, CAFETERIA ASSOCIATE, CAYDEN) degree you have received? Sex [...] SARS Coronavirus-2, PCR (01/24/2020 12:56 PM CDT) [facility] Method Time Signature SARS Swab, 01/25/2020 [...] and its performa nce characteristics determined by [facility] in a manner co nsistent with CLIA requirements. Independent review by the U.S. Food and Drug Administration is pending. Visit the CDC website: https://www.cdc.gov/coronavirus/ ?? for the most recent guidelines on Mederos virus testing. Fact Sheet for Healthcare Providers: (https://www.Glokalise/it-mmfil es/ Provider_Fact_Sheet_for_[facility]_COVI D-19.pdf) Fact Sheet for Patients: (https://www.Glokalise/it-mmfil es/ Patient_Fact_Sheet_for_COVID-19.pdf) Specimen Anatomical Collection Method Collection Time Receive d Time (Source) Location / / Volume Laterality Varies 01/24/2020 12:56 01/24/2020 2:41 (Nasopharynx) PM CDT PM CDT Collin Cervantes D.O. LAB MICROBIOLOGY - GENERAL O RDERABLES Performing Organization Address City/State/ZIP Code Phon e Number [facility] [address] [place], [place] [address] [facility] [place] [address] [facility] [address] documented in this encounter Visit Diagnoses Diagnosis Infection Upper Respiratory - Primary documented in this encounter Additional Health Concerns Infection Onset Date Last Indicated Resolved Time COVID19 Pending 01/24/2020 01/24/2020 01/25/2020 12:58 AM CDT Assessment Noted Time PHQ-9 Depression Total Score: 18 04/28/2018 11:27 AM C DT documented as of this encounter Care Teams Hospital Unit Clerk Relationship Specialty Start Date End Date Wariboko, Chris I., M.B.B.S., M.D. PCP - General Family Medicine 01/10/20 05/21/[address] [place] [address] [place] [address] documented as of this encounter
--- OUTSIDE RECORDS SUMMARY | 2022-05-27 12:05 | XMS_ITS | Encounter Summary ---
:1945 Author Organization [facility] Address [address] [place] [address] Care Team Providers Name Role Phone Ewa Alejandro M.D. Primary Care Provider [phone] Reason for Visit Reason Comments Allergy Testing skin testing Encounter Details Date Type Department Care Team Description 12/15/2019 Clinical Support Division of Andres Sims M.D. [address] [place] [phone] Cough Chronic; Allergic Diseases Katerin Rasmussen, RMauroNMauro [address] [place] [phone] Shortness Of Breath; in [place], Deena Cai R.N. Asthma Extrinsic Moderate ([facility]) [address] [phone] Social History Tobacco Use Types Packs/Day Years [...] do you attend mu-ism or Never 2021 religion services? Do you [...] completed or the highest Martin, MEd, FISH PITCHER, CAYDEN) degree you have received? Sex Assigned at Date Recorded Male 05/21/2018 2:34 PM CDT documented as of this encounter Procedure Notes Josiah Ocasio M.D. - 12/15/2019 12:00 PM CDTAssociated Order(s): ALI BASIC SKIN TEST; ALI NORTHERN SKIN TEST Panel Skin Tests Clinical Support from 12/15/2019 in Division of Allergic Diseases in [place], [place] Controls Prick Control 0 Histamine (15 min W/F) 5x6f Glycerine (15 min W/F) 0 Basic Panel Cat Hair 0 Cockroach mix (Namibian & Italian) 0 Dog AP 0 D.F. Mite 5x5f [...] White 0 Shashank, White 0 Birch 0 [place], Red 0 [place], Eastern 0 Elm, Namibian 0 Maple 0 [place], Black 0 Ashby 0 Sats[place], White 0 Norden, Namibian 0 Bermuda 0 [place] Blue 0 Orchard 0 Zhang 0 Kochia 0 Garcia's Quarters 0 Page Elder, Burweed 0 Mugwort, Common 0 Plantain, Cambodian 0 Rough Pigweed 0 Australian thistle 0 Short Ragweed 0 [place], Sheep Red 0 Skin test positive. Clinical correlation recommended and allergy consult, if clinically indicated. documented in this encounter Plan of Treatment Not on filedocumented as of this encounter Procedures Procedure Name Priority Date/Time Associated Diagnosis Comme nts ALI NORTHERN SKIN Routine 12/15/2019 12:00 PM Cough Integration Specialist hilary Results for this TEST CDT Shortness [...] in Di vision of Allergic Diseases in [place], [place] Controls Prick Control ??0 Histamine (15 min W/F) ??5x6f Glycerine (15 min W/F) ??0 Basic Panel Cat Hair ??0 Cockroach mix (Namibian & Italian) ??0 Dog AP ??0 D.F. Mite ??5x5f D. P Mite ??6x7f Horse ??0 Alternaria Alternata ??0 Aspergillus Fumigatus ??0 Bipolaris Sorokiniana ??0 Chaetomium Globosum ??0 Curvularia Spicifera (Drechstera Spidfer a) ??0 Epicoccum ??0 Fusarium ??0 Geotrichum ??0 Helminthosporium ??0 Hormodendrum/Clad (Cladostorium Cladospo rioides) ??0 Mucor Racemosus ??0 Penicillium Mix ??0 Phoma Herbarum ??0 Pullularia ??0 Rhizopus Stolonifer ??0 Stemphylium Solani ??0 Northern Panel [place], White ??0 Shashank, White ??0 Birch ??0 [place], Red ??0 [place], Eastern ??0 Elm, Namibian ??0 Maple ??0 [place], Black ??0 Ashby ??0 S[place], White ??0 Norden, Namibian ??0 B[place] ??0 [place] Blue ??0 Orchard ??0 Zhang ??0 Kochia ??0 Garcia's Quarters ??0 Page Elder, Burweed ??0 Mugwort, Common ??0 Plantain, Cambodian ??0 Rough Pigweed ??0 Australian thistle ??0 Short Ragweed ??0 [place], Sheep Red ??0 Skin test positive. Clinical [...] in Di vision of Allergic Diseases in [place], [place] Controls Prick Control ??0 Histamine (15 min W/F) ??5x6f Glycerine (15 min W/F) ??0 Basic Panel Cat Hair ??0 Cockroach mix (Namibian & Italian) ??0 Dog AP ??0 D.F. Mite ??5x5f [...] White ??0 Shashank, White ??0 Birch ??0 [place], Red ??0 [place], Eastern ??0 Elm, Namibian ??0 Maple ??0 [place], Black ??0 Ashby ??0 S[place]uma, White ??0 Norden, Namibian ??0 B[place] ??0 [place] Blue ??0 Orchard ??0 Zhang ??0 Kochia ??0 Garcia's Quarters ??0 Pgae Elder, Burweed ??0 Mugwort, Common ??0 Plantain, Cambodian ??0 Rough Pigweed ??0 Australian thistle ??0 Short Ragweed ??0 [place], Sheep Red ??0 Skin test positive. Clinical [...] as of this encounter Care Teams Oil Expeller Operator Relationship Specialty Start Date End Date Ewa Alejandro M.D. PCP - General 03/13/17 01/09/20 [address], [place] [address] documented as of this encounter
--- OUTSIDE RECORDS SUMMARY | 2022-05-27 12:06 | XMS_ITS | Encounter Summary ---
:1945 Author Organization [facility] Address [address] [place] [address] Care Team Providers Name Role Phone Ewa Alejandro M.D. Primary Care Provider Encounter Details Date Type Department Care Team Description 10/28/2019 Clinical Communication Department of Family Kirill Torres [facility], Ewa [place], Clinic, in [place] [address] [place] [phone] Social History Tobacco Use Types Packs/Day Years [...] do you attend spiritism or Never 2021 buddhism services? Do you [...] have completed or the highest Martin, MEd, SEISMOGRAPH HELPER, CAYDEN) degree you have received? Sex Assigned at Date Recorded Male 05/21/2018 2:34 PM CDT documented as of this encounter Miscellaneous Notes Telephone Encounter - Ewa Alejandro M.D. 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 It will be fine for him to hold Plavix prior to an endoscopy. If we know when the procedure is, we can guide him as far as when to start holding. SION CONTROLLER Telephone Encounter - Natasha Decker - 10/28/2019 [...] symptom based concerns): Action Needed: Please send [facility] permission for patient so they can schedule him. Name of Medication (if relevant): SION CONTROLLER documented in this encounter Plan of Treatment Not on filedocumented as of this encounter Visit Diagnoses Not on filedocumented in this encounter Additional Health Concerns Assessment Noted Time PHQ-9 Depression Total Score: 18 04/28/2018 11:27 AM C DT documented as of this encounter Care Teams Glove Parts Inspector Relationship Specialty Start Date End Date Ewa Alejandro M.D. PCP - General 03/13/17 01/09/20 [address], [place] [address] documented as of this encounter
--- OUTSIDE RECORDS SUMMARY | 2022-05-27 12:06 | XMS_ITS | Encounter Summary ---
:1945 Author Organization [facility] Address [address] [place] [address] Care Team Providers Name Role Phone Ewa Alejandro M.D. Primary Care Provider Encounter Details Date Type Department Care Team Description 11/16/2019 Hospital Encounter Department of Radiology Clifford Bal Cough Chronic in [facility] Ewa mullen M.D. [address] [place] [address] [address] [place] [address] [place], [place] [phone] Social History Tobacco Use Types Packs/Day [...] do you attend latter-day or Never 2021 hindu services? Do you [...] completed or the highest Martin, MEd, NURSE TECHNICIAN, CAYDEN) degree you have received? Sex [...] SYRINGE-NEEDLE,INSULIN, 0 0.5 ML (INSULIN SYRINGE MISC) ufcivx-gkjaaavt-mordsdh Take 2 capsules by 240 capsule 3 [...] reader (FREESTYLE ILEANA 14 DAY READER) [facility] flash glucose sensor Use as directed. 6 [...] this AND LATERAL 2 (most inpatients AM TRACK LAYER procedure are in VIEWS and all the results outpatients) section. documented in this encounter Results DX Chest AP or PA and Lateral 2 Views (11/16/2019 8:25 AM TRACK LAYER) Anatomical Region Laterality Modality Chest, Thoracic RST LOS, Thoracic ARZ LOS, Thoracic N/A Digital Radiography FLA LOS Specimen (Source) Anatomical Collection Method Collection Time Re ceived Time Location / / Volume Laterality 11/16/2019 8:31 AM TRACK LAYER Impressions 11/16/2019 8:32 AM TRACK LAYER No acute radiographic abnormality. Narrative 11/16/2019 8:32 AM TRACK LAYER EXAM: DX CHEST AP OR PA AND [...] documented as of this encounter Care Teams Enrolled Agent Relationship Specialty Start Date End Date Ewa Alejandro M.D. PCP - General 03/13/17 01/09/[address] [phone] documented as of this encounter
--- OUTSIDE RECORDS SUMMARY | 2022-05-27 12:06 | XMS_ITS | Encounter Summary ---
:1945 Author Organization [facility] Address [address] [place] [address] Care Team Providers Name Role Phone Ewa Alejandro M.D. 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 [address] [place] [phone] Referral ID Status Reason Start Date Expiration Date Visits Requ ested Visits Authorized [id number] Closed 10/19/2019 10/18/2020 1 1 Encounter Details Date Type Department Care Team Description 10/20/2019 Hospital Encounter Department of Keisha Lopez Panc reatitis Chronic (HCC); Radiology, Leanne TRIVEDI C.N.P., Lexy German ancreatic Insufficiency (HCC); Building, in M.S.N. Deficiency Vitamin D [place], [address] [place], [place] [address] [facility] [address] [place], [place] [phone] (Work) [phone] Social History Tobacco Use Types Packs/Day Years [...] do you attend advent or Never 2021 bahai services? Do you [...] completed or the highest Martin, MEd, HAND KISS SETTER, CAYDEN) degree you have received? Sex [...] daily SYRINGE-NEEDLE,INSULIN, 0 0.5 ML (INSULIN SYRINGE [facility]) lgegsw-zbtucica-qhkafif Take 2 capsules by 240 capsule 3 [...] 05/01/2020 reader (FREESTYLE ILEANA 14 DAY READER) [facility] flash glucose sensor Use as [...] for this SPINE HIPS (most inpatients PM RAIL CAR MAINTENANCE MECHANIC (HCC) procedure are in and all Exocrine Pancreatic the resu lts outpatients) Insufficiency (H CC) section. Deficiency Vitamin D documented in this encounter Results BMD Bone Density Spine Hips (10/20/2019 12:21 PM RAIL CAR MAINTENANCE MECHANIC) Anatomical Region Laterality Modality Hip, Lumbar Spine, Nuclear Medicine RST LOS, N/A Radiographic Imaging Musculoskeletal ARZ LOS, Muskuloskeletal FLA LOS Specimen (Source) Anatomical Collection Method Collection Time Re ceived Time Location / / Volume Laterality 10/20/2019 12:32 PM RAIL CAR MAINTENANCE MECHANIC Impressions 10/20/2019 12:32 PM RAIL CAR MAINTENANCE MECHANIC No evidence of osteoporosis or osteopeni a found Narrative 10/20/2019 12:32 PM RAIL CAR MAINTENANCE MECHANIC EXAM: ??BMD BONE DENSITY SPINE HIPS FINDINGS: [...] of skeletal fragility [facility] the [facility]. Today's spine scan is considered [...] documented as of this encounter Care Teams Television Parts Tester Relationship Specialty Start Date End Date Ewa Alejandro M.D. PCP - General 03/13/17 01/09/20 [address] [phone] documented as of this encounter
--- OUTSIDE RECORDS SUMMARY | 2022-05-27 12:06 | XMS_ITS | Encounter Summary ---
:1945 Author Organization [facility] Address [address] [place] [address] Care Team Providers Name Role Phone Ewa Alejandro M.D. Primary Care Provider [phone] Reason for Visit Reason Onset Date Comments Blood glucose review 11/05/2019 Encounter Details Date Type Department Care Team Description 11/05/2019 Clinical Department of Alysha Pompa Blood glucos e Communication Nutrition in A, R.N., CDCES review [place], [facility] [address] [place], [place] [address] [facility] [address] [place], [place] [phone] (Work) [phone] Social History Tobacco Use Types Packs/Day Years [...] do you attend confucianist or Never 2021 lutheran services? Do you [...] have completed or the highest Martin, MEd, INSULATION CUPOLA OPERATOR, CAYDEN) degree you have received? Sex Assigned at Date Recorded Male 05/21/2018 2:34 PM CDT documented as of this encounter Miscellaneous Notes Telephone Encounter - Alysha Pompa RMauroN. - 11/05/2019 11:50 AM CST Attempted to call patient, left message. CAL GOODS DRILL OPERATOR documented in this encounter Plan of Treatment Not on filedocumented as of this encounter Visit Diagnoses Not on filedocumented in this encounter Additional Health Concerns Assessment Noted Time PHQ-9 Depression Total Score: 18 04/28/2018 11:27 AM C DT documented as of this encounter Care Teams Web Press Operator Helper Offset Relationship Specialty Start Date End Date Ewa Alejandro M.D. PCP - General 03/13/17 01/09/[address] [phone] documented as of this encounter
--- OUTSIDE RECORDS SUMMARY | 2022-05-27 12:06 | XMS_ITS | Encounter Summary ---
:1945 Author Organization [facility] Address [address] [place] [address] Care Team Providers Name Role Phone Ewa Alejandro M.D. Primary Care Provider [phone] Encounter Details Date Type Department Care Team Description 10/28/2019 Clinical Communication Department of Family Kirill Torres [facility], Ewa [place], Clinic, in [place] [address] [place] [phone] Social History Tobacco Use Types Packs/Day Years [...] do you attend uatsdin or Never 2021 pentecostalism services? Do you [...] completed or the highest Martin, MEd, REGISTERED NURSE HH CASE MANAGER, CAYDEN) degree you have received? Sex Assigned at Date Recorded Male 05/21/2018 2:34 PM CDT documented as of this encounter Plan of Treatment Not on filedocumented as of this encounter Visit Diagnoses Not on filedocumented in this encounter Additional Health Concerns Assessment Noted Time PHQ-9 Depression Total Score: 18 04/28/2018 11:27 AM C DT documented as of this encounter Care Teams Chiropractic Practice Manager Relationship Specialty Start Date End Date Ewa Alejandro M.D. PCP - General 03/13/17 01/09/[address] [phone] documented as of this encounter
--- OUTSIDE RECORDS SUMMARY | 2022-05-27 12:06 | XMS_ITS | Encounter Summary ---
:1945 Author Organization [facility] Address [address] [place] [address] Care Team Providers Name Role Phone Ewa Alejandro M.D. Primary Care Provider [phone] Encounter Details Date Type Department Care Team [...] do you attend rastafari or Never 2021 yazdanism services? Do you [...] completed or the highest Martin, MEd, MANAGER DESKTOP, CAYDEN) degree you have received? Sex Assigned at Date Recorded Male 05/21/2018 2:34 PM CDT documented as of this encounter Plan of Treatment Not on filedocumented as of this encounter Procedures Procedure Name Priority Date/Time Associated Diagnosis Comme nts UROLOGY IMAGE EXAM Routine 11/25/2019 5:55 AM Res ults for this WAREDRESSER procedure are i n the results section. documented in this encounter Results CYSTOSCOPY-Urology Image Exam (11/25/2019 5:55 AM WAREDRESSER) Specimen (Source) Anatomical Collection Method Collection Time Re ceived Time Location / / Volume Laterality 11/25/2019 5:54 AM WAREDRESSER Narrative IIMS - 11/25/2019 8:23 AM WAREDRESSER This order has been created and auto-finalized [...] of this encounter Care Teams Process Control Programmer Relationship Specialty Start Date End Date Ewa Alejandro M.D. PCP - General 03/13/17 01/09/[address] [place] [address] documented as of this encounter
--- OUTSIDE RECORDS SUMMARY | 2022-05-27 12:06 | XMS_ITS | Encounter Summary ---
:1945 Author Organization [facility] Address [address] [place] [address] Care Team Providers Name Role Phone Ewa Alejandro M.D. Primary Care Provider [phone] Reason for Referral Outpatient (Routine) - Closed Specialty Diagnoses / Procedures Referred By Contact Refer red To Contact Pulmonary Medicine Ailyn Sims [place] M.D. [address] [place] [address] Referral ID Status Reason Start Date Expiration Date Visits Requ ested Visits Authorized [id number] Closed 12/15/2019 12/14/2020 1 1 Outpatient (Routine) - Closed Specialty Diagnoses / Procedures Referred By Contact Refer red To Contact Diagnoses Chronic Cough Shortness Of Breath Asthma Extrinsic Moderate (HCC) Ailyn Sims M.D. Procedures Echo Stress [address] [place], [place] [address] Referral ID Status Reason Start Date Expiration Date Visits Requ ested Visits Authorized [id number] Closed 12/15/2019 12/14/2020 1 1 Outpatient (Routine) - Closed Specialty Diagnoses / Referred By Contact Referred To Contact Procedures Allergy and Immunology Diagnoses Chronic Cough Shortness Of Breath Asthma Extrinsic Moderate (HCC) Ailyn Sims [place] M.D. [address] [place] [address] Referral ID Status Reason Start Date Expiration Date Visits Requ ested Visits Authorized [id number] Closed 12/15/2019 12/14/2020 1 1 Outpatient (Routine) - Closed Specialty Diagnoses / Procedures Referred By Contact Refer red To Contact Pulmonary Medicine Diagnoses Chronic Cough Flavia Daniel Felicita Mcneil M.D. [address] [place] [phone] Referral ID Status Reason Start Date Expiration Date Visits Requ ested Visits Authorized [id number] Closed 10/27/2019 10/26/2020 1 1 Reason for Visit Outpatient (Routine) - Closed Specialty Diagnoses / Procedures Referred By Contact Refer red To Contact Pulmonary Medicine Diagnoses Chronic Cough Flavia Daniel Felicita Mcneil M.D. [address] [place] [phone] Referral ID Status Reason Start Date Expiration Date Visits Requ ested Visits Authorized [id number] Closed 10/27/2019 10/26/2020 1 1 Encounter Details Date Type Department Care Team Description 12/15/2019 Hospital Encounter Division of Ailyn Sims rtness Of Breath (Primary Dx); Pulmonary Medicine Pato Duque Cough Chronic; in [facility] Asthma Extrinsic Moderate (HCC) [place], [place] 200 [facility] [address] [place], [place] [phone] (Wo rk) [phone] Social History Tobacco Use Types Packs/Day Years [...] or the highest Martin, MEd, ALL SOURCE INTELLIGENCE ANALYST, CAYDEN) degree you have received? Sex [...] Fine 30 0 [facility] disposable needles. For use with Insulin Pens, 4 times daily SYRINGE-NEEDLE,INSULIN, 0 0.5 ML (INSULIN SYRINGE [facility]) ekdyae-tsezrfat-tbbqmyk Take 2 capsules by 240 capsule 3 [...] 1 each 0 09/18/20 18 05/01/2020 reader (Lifesum ILEANA 14 DAY READER) [facility] flash glucose sensor Use as directed. 6 [...] is pending. Prior environmental exposures include Agent [place] (1967), possible mild positional sleep apnea, and deconditioning. Patient did retire from [employer] 1 year ago and does report increased [...] DOPPLER AND CONTRAST (12/15/2019 3:33 PM CDT) [facility] gist Method Time Signature Ejection Fraction 45 [...] effusion. For the complete report, see the [employer] Documents. Narrative 12/15/2019 4:55 PM CDT For the complete report, see the [employer] Documents. Final Impressions 1. Exercise echocardiogram positive [...] 8. O2 uptake data detailed in the [facility] Medical Record (Cardiopulmonary (VO2) Exercise Test). 9. [...] original. For the complete report, see the [employer] Documents. Final Impressions 1. Exercise echocardiogram positive [...] 8. O2 uptake data detailed in the [facility] Medical Record (Cardiopulmonary (VO2) Exercise Test). 9. [...] in Di vision [facility] Allergic Diseases in [place], [place] Controls Prick Control ??0 Histamine (15 min W/F) ??5x6f Glycerine (15 min W/F) ??0 Basic Panel Cat Hair ??0 Cockroach mix (Vietnamese & Irish) ??0 Dog AP ??0 D.F. Mite ??5x5f [...] White ??0 Shashank, White ??0 Birch ??0 [place], Red ??0 Caled[place], Eastern ??0 Elm, Vietnamese ??0 Maple ??0 [place], Black ??0 Hartwell ??0 [place], White ??0 [place], Vietnamese ??0 Bermuda ??0 Kentucky Blue ??0 Orchard ??0 Zhang ??0 Kochia ??0 Garcia's Quarters ??0 Page Elder, Burweed ??0 Mugwort, Common ??0 Plantain, Monegasque ??0 Rough Pigweed ??0 Prydeinig thistle ??0 Short Ragweed ??0 Lakehead, Sheep Red ??0 Skin test positive. Clinical [...] 12/15/2019 in [facility] Allergic [facility] in [place], [place] Controls Prick Control ??0 Histamine (15 min W/F) ??5x6f Glycerine (15 min W/F) ??0 Basic Panel Cat Hair ??0 Cockroach mix (Vietnamese & Irish) ??0 Dog AP ??0 D.F. Mite ??5x5f D. P Mite ??6x7f Horse ??0 Alternaria Alternata ??0 Aspergillus Fumigatus ??0 Bipolaris Sorokiniana ??0 Chaetomium Globosum ??0 Curvularia Spicifera (Drechstera Spidfer a) ??0 Epicoccum ??0 Fusarium ??0 Geotrichum ??0 Helminthosporium ??0 Hormodendrum/Clad (Cladostorium Cladospo rioides) ??0 Mucor Racemosus ??0 Penicillium Mix ??0 Phoma Herbarum ??0 Pullularia ??0 Rhizopus Stolonifer ??0 Stemphylium Solani ??0 Northern Panel Shiloh, White ??0 Shashank, White ??0 Birch ??0 Cleveland, Red ??0 Caledonia, Eastern ??0 Elm, Vietnamese ??0 Maple ??0 Wilming[place], Black ??0 Hartwell ??0 Elkhart, White ??0 Em[place], Vietnamese ??0 Bermuda ??0 Kentucky Blue ??0 Orchard ??0 Zhang ??0 Kochia ??0 Garcia's Quarters ??0 Page Elder, Burweed ??0 Mugwort, Common ??0 Plantain, Monegasque ??0 Rough Pigweed ??0 Prydeinig thistle ??0 Short Ragweed ??0 Lakehead, Sheep Red ??0 Skin test positive. Clinical correlation recommended and allergy consult, if clinically indicated. Ailyn Sims M.D. PROCEDURE/MINOR SURGICAL ORD ERABLES Performing Organization Address City/State/ZIP Code Phon e Number MMODAL MMODAL NA Pulmonary Function Tests (12/15/2019 9:21 AM CDT) athologist Signature VC MAX PRE 3.87 L 12/29/2019 [facility] 10:51 AM CDT SUITE FVC 3.87 L 12/29/2019 [facility] 10:51 AM CDT SUITE FEV1 2.62 L 12/29/2019 [facility] 10:51 AM CDT SUITE FEV1/FVC 67.58 % 12/29/2019 [facility] 10:51 AM CDT SUITE YLD73-14% 1.41 L/s 12/29/2019 [facility] 10:51 AM CDT SUITE PEF PRE 7.01 L/s 12/29/2019 [facility] 10:51 AM CDT SUITE FET PRE 12.56 sec 12/29/2019 [facility] 10:51 AM CDT SUITE DLCO 17.97 ml/(min*mm 12/29/2019 [facility] Hg) 10:51 AM CDT SUITE VA 6.35 L 12/29/2019 [facility] 10:51 AM CDT SUITE [id number] 96.00 % 12/29/2019 [facility] 10:51 AM CDT SUITE PulseRest 85.00 1/min 12/29/2019 [facility] 10:51 AM CDT SUITE [id number] 93.00 % 12/29/2019 [facility] 10:51 AM CDT SUITE PulseExer 103.00 1/min 12/29/2019 [facility] 10:51 AM CDT SUITE EXER TIME 3.00 min 12/29/2019 [facility] 10:51 AM CDT SUITE STEP HEIGHT 9.00 Inch 12/29/2019 [facility] PRE 10:51 AM CDT SUITE % PRED VC MAX 86.08 % 12/29/2019 [facility] 10:51 AM CDT SUITE FVC% 86.08 % 12/29/2019 [facility] 10:51 AM CDT SUITE FEV1% 78.76 % 12/29/2019 [facility] 10:51 AM CDT SUITE % PRED 90.68 % 12/29/2019 [facility] FEV1/FVC 10:51 AM CDT SUITE % PRED FEF 60.23 % 12/29/2019 [facility] 25-75% 10:51 AM CDT SUITE % PRED PEF 78.97 % 12/29/2019 [facility] 10:51 AM CDT SUITE PRED VC MAX 4.50 L 12/29/2019 [facility] 10:51 AM CDT SUITE PRED FVC 4.50 L 12/29/2019 [facility] 10:51 AM CDT SUITE PRED FEV 1 3.32 L 12/29/2019 [facility] 10:51 AM CDT SUITE PRED FEV1/FVC 74.53 % 12/29/2019 [facility] 10:51 AM CDT SUITE PRED FEF 2.34 L/s 12/29/2019 [facility] 25-75% 10:51 AM CDT SUITE PRED PEF 8.87 L/s 12/29/2019 [facility] 10:51 AM CDT SUITE Specimen (Source) Anatomical Collection Method Collection Time Re ceived Time Location / / Volume Laterality 12/15/2019 9:21 AM CDT Narrative This result has an attachment that is no t available. Ailyn Sims M.D. PFT ORDERABLES Performing Organization Address City/State/ZIP Code Phon e Number [facility] [address] [facility] SU[address] NA PUL Exhaled Nitric Oxide (12/15/2019 9:13 AM CDT) [facility] Method Time Signature Exhaled NO 64 MMODAL Oral Parts per 39 MMODAL billion (ULN) ENOComment Patient takes MMODAL Albuterol, Symbicort Specimen (Source) Anatomical Location Collection Method / Collectio n Time Received Time / Laterality Volume Ailyn Sims M.D. PFT ORDERABLES Performing Organization Address City/[facility] Code Phon e Number MMODAL MMODAL NA [...] documented as of this encounter Care Teams Glass Etcher Helper Relationship Specialty Start Date End Date Ewa Alejandro M.D. PCP - General 03/13/17 01/09/[address] [place] [phone] documented as of this encounter
--- OUTSIDE RECORDS SUMMARY | 2022-05-27 12:06 | XMS_ITS | Encounter Summary ---
:1945 Author Organization [facility] Address [address] [place] [address] Care Team Providers Name Role Phone Ewa Alejandro M.D. Primary Care Provider [phone] Reason for Visit Reason Comments Follow-up 6 month bladder cancer surve illance Outpatient (Routine) - Closed Specialty Diagnoses / Procedures Referred By Contact Refer red To Contact Diagnoses Personal History Of Malignant Neoplasm Of Bladder Prasanna Bernal M.D. [facility] Region Procedures Cystoscopy (specific provider) [address] [place] [address] Referral ID Status Reason Start Date Expiration Date Visits Requ ested Visits Authorized [id number] Closed 05/24/2019 05/23/2020 1 1 Encounter Details Date Type Department Care Team Description 11/25/2019 Office Visit Department of Urology Prasanna Bernal Per sonal History Of in Moise Dixon M.D. Malignant Neoplasm Of [address] [facility] [place] [phone] Social History Tobacco Use Types Packs/Day Years [...] do you attend gnosticist or Never 2021 faith services? Do you belong to any clubs or No 10/09/2021 organizations such as gnosticist groups, unions, [employer] or athletic groups, or school groups? How [...] have completed or the highest Martin, MEd, FOREPART RASPER, CAYDEN) degree you have received? Sex Assigned at Date Recorded Male 05/21/2018 2:34 PM CDT documented as of this encounter Last Filed Vital Signs Vital Sign Reading Time Taken Comments Blood Pressure 143/72 11/25/2019 8:04 AM MAT PUNCHER Pulse 68 11/25/2019 8:04 AM MAT PUNCHER Temperature 36.7 ??C (98.1 ??F) 11/25/2019 8:04 AM MAT PUNCHER Respiratory Rate - - Oxygen Saturation - [...] by: Prasanna Bernal M.D. 11/25/19 8:33 AM MAT PUNCHER PUNCHER documented in this encounter Plan of Treatment Not on filedocumented as of this encounter Results Cytology Non-FACULTY HEAD (Scheduled) (06/06/2020 1:33 PM CDT) Component Value Ref Test Analysis Performed At [facility] gist Range Method Time Signature 06/07/2020 DTL 2:47 PM CDT Report Dafne Rodriguez M.D. [id number] 06/07/2020 DTL electronically I verify that I [...] [facility] [address] [place], [place] [address] [place] [address] [facility] [address] documented in this encounter Visit Diagnoses Diagnosis Personal History Of Malignant Neoplasm O f Bladder documented in this encounter Additional Health Concerns Assessment Noted Time PHQ-9 Depression Total Score: 18 04/28/2018 11:27 AM C DT documented as of this encounter Care Teams Barber Relationship Specialty Start Date End Date Ewa Alejandro M.D. PCP - General 03/13/17 01/09/20 [address] [place] [phone] documented as of this encounter
--- OUTSIDE RECORDS SUMMARY | 2022-05-27 12:06 | XMS_ITS | Encounter Summary ---
:1945 Author Organization [facility] Address [address] [place] [address] Care Team Providers Name Role Phone Ewa Alejandro M.D. Primary Care Provider [phone] Reason for Visit Reason Comments Treatment Questions Encounter Details Date Type Department Care Team Description 12/12/2019 Clinical Communication Division of Natasha Corrales ment Questions [facility] B, R.N. [facility] [phone] [facility], in (Work) [place], [place] [address] [place] [address] Social History Tobacco Use Types Packs/Day Years [...] completed or the highest Martin, MEd, CAREER DEVELOPMENT COUNSELOR, CAYDEN) degree you have received? Sex [...] also because his granddaughter has been in [place] two weeks ago. His granddaughter has no [...] documented as of this encounter Care Teams Bag Maker Relationship Specialty Start Date End Date Ewa Alejandro M.D. PCP - General 03/13/17 01/09/20 [address] [place] [phone] documented as of this encounter
--- OUTSIDE RECORDS SUMMARY | 2022-05-27 12:06 | XMS_ITS | Encounter Summary ---
:1945 Author Organization [facility] Address [address] [place] [address] Care Team Providers Name Role Phone Ewa Alejandro M.D. Primary Care Provider [phone] Reason for Referral Outpatient (Routine) - Closed Specialty Diagnoses / Procedures Referred By Contact Refer red To Contact Nutrition Diagnoses Diabetes Mellitus Type 2 With Diabetic Neuropathy (HCC) Debbie Marquis M.D. [facility] [address] [place] [address] Referral ID Status Reason Start Date Expiration Date Visits Requ ested Visits Authorized [id number] Closed 10/21/2019 10/20/2020 1 1 Scheduling Instructions schedule with Zoya at 3 pm on 11/01/19 ER MACHINE OPERATOR Encounter Details Date Type Department Care Team Description 10/21/2019 Clinical Support Department of Debbie Marquis M.D . Diabetes Mellitus Nutrition in Hair, Alysha Arias RJustina, [facility] [address] [place] [phone] Type 2 With Diabetic Alexia, Neuropathy (HCC ) [place] (Primary Dx) [address] [place] [phone] Social History Tobacco Use Types Packs/Day Years [...] do you attend restorationist or Never 2021 buddhist services? Do you [...] have completed or the highest Martin, MEd, CLASSIFYING MACHINE OPERATOR, CAYDEN) degree you have received? [...] 2 With Diabetic Neuropathy (HCC) Nutrition - community educator visit (clinic) Nutrition office visit (clinic) [...] Time spent with patient (minutes): 60 Minutes ER MACHINE OPERATOR documented in this encounter Plan of Treatment Scheduled Referrals Name Type Priority Associated Diagnoses Order S [facility] Nutrition office Outpatient Referral Routine Diabetes Mellitus [...] documented as of this encounter Care Teams Weigh Tank Operator Relationship Specialty Start Date End Date Ewa Alejandro M.D. PCP - General 03/13/17 01/09/[address] [place] [phone] documented as of this encounter
--- OUTSIDE RECORDS SUMMARY | 2022-05-27 12:06 | XMS_ITS | Encounter Summary ---
:1945 Author Organization [facility] Address [address] [place] [address] Care Team Providers Name Role Phone Ewa Alejandro M.D. Primary Care Provider [phone] Reason for Visit Outpatient (Routine) - Closed Specialty Diagnoses / Procedures Referred By Contact Refer red To Contact Nutrition Diagnoses Diabetes Mellitus Type 2 With Diabetic Neuropathy (HCC) Debbie Marquis M.D. [facility] [address] [place] [address] Referral ID Status Reason Start Date Expiration Date Visits Requ ested Visits Authorized [id number] Closed 10/21/2019 10/20/2020 1 1 Encounter Details Date Type Department Care Team Description 11/01/2019 Clinical Support Department of Debbie Marquis M.D . Diabetes Mellitus Nutrition in [facility], Alysha Arias R.N., [address] [address] Type 2 With Diabetic Alexia, Neuropathy (HCC ) [place] [address] [place] [phone] Social History Tobacco Use Types Packs/Day Years [...] 10/09/2021 organizations such as religion groups, unions, frazePASS or athletic groups, or school groups? How [...] completed or the highest Martin, MEd, SUPERINTENDENT METER TESTS, CAYDEN) degree you have received? Sex Assigned [...] Time spent with patient (minutes): 75 Minutes EN CLEANER documented in this encounter Plan of Treatment Not on filedocumented as of this encounter Visit Diagnoses Diagnosis 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) documented in this encounter Additional Health Concerns Assessment Noted Time PHQ-9 Depression Total Score: 18 04/28/2018 11:27 AM C DT documented as of this encounter Care Teams Acetylene Torch Burner Relationship Specialty Start Date End Date Ewa Alejandro M.D. PCP - General 03/13/17 01/09/20 [address] [phone] documented as of this encounter
--- OUTSIDE RECORDS SUMMARY | 2022-05-27 12:06 | XMS_ITS | Encounter Summary ---
:1945 Author Organization [facility] Address [address] [place] [address] Care Team Providers Name Role Phone Ewa Alejandro M.D. 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 [address] [place] [phone] Referral ID Status Reason Start Date Expiration Date Visits Requ ested Visits Authorized [id number] Closed 12/17/2019 12/16/2020 1 1 Reason for Visit Reason Comments appointment question Encounter Details Date Type Department Care Team Description 12/10/2019 Clinical Division of Keisha Lopez appointment Communication Gastroenterology in FAROOQ Yeung questio n [place], [place] C.NKerry, M.S.N. [address] [facility] [address] [place] [phone] [phone] Social History Tobacco Use Types Packs/Day Years [...] do you attend orthodox or Never 2021 voodoo services? Do you [...] completed or the highest Martin, MEd, MANAGER TITLE, CAYDEN) degree you have received? Sex Assigned [...] Patient will continue to follow with his Paint Line Operator and prefers to have EUS at [place]. Questions answered. Patient verbalized understanding and was [...] documented as of this encounter Care Teams Balloon Dipper Relationship Specialty Start Date End Date Ewa Alejandro M.D. PCP - General 03/13/17 01/09/20 [address] [place] [phone] documented as of this encounter
--- OUTSIDE RECORDS SUMMARY | 2022-05-27 12:06 | XMS_ITS | Encounter Summary ---
:1945 Author Organization [facility] Address [address] [place] [address] Care Team Providers Name Role Phone Ewa Alejandro M.D. Primary Care Provider [phone] Reason for Visit Reason Comments Pancreas Results DEXA scan, glucose, CBC Encounter Details Date Type Department Care Team Description 11/04/2019 Clinical Division of Keisha Lopez Pancreas; Resu lts Communication Gastroenterology in , BANQUET LEAD, (DEXA s can, [place], [place] C.N.P., M.S.N. glucose, CBC ) [address] [place] [address] [address] [place] [phone] Social History Tobacco Use Types Packs/Day Years [...] do you attend tenriism or Never 2021 buddhist services? Do you [...] have completed or the highest Martin, MEd, FAUCET POLISHER, CAYDEN) degree you have received? Sex Assigned at Date Recorded Male 05/21/2018 2:34 PM CDT documented as of this encounter Miscellaneous Notes Telephone Encounter - Daphney Batista, RMauroN. - 11/04/2019 12:29 PM FIGURE CLERK SUBJECTIVE CHIEF COMPLAINT / REASON FOR [...] Patient stated he has already seen an Biscuit Factory Worker and has plans to follow with them. Additionally he will follow up with PCP regarding anemia concerns. Ordered by: Keisha Lopez CNP Date performed: 10/20/2019 Pending results: None Disposition/Recommendation: per the above Information/Education: patient/caller able to teach back Caller agreeable to plan of care: yes RE CLERK documented in this encounter Plan of Treatment Not on filedocumented as of this encounter Visit Diagnoses Not on filedocumented in this encounter Additional Health Concerns Assessment Noted Time PHQ-9 Depression Total Score: 18 04/28/2018 11:27 AM C DT documented as of this encounter Care Teams Refractive Surgeon Relationship Specialty Start Date End Date Ewa Alejandro M.D. PCP - General 03/13/17 01/09/[address], [place] [address] documented as of this encounter
--- OUTSIDE RECORDS SUMMARY | 2022-05-27 12:06 | XMS_ITS | Encounter Summary ---
:1945 Author Organization [facility] Address [address] [place] [address] Care Team Providers Name Role Phone Ewa Alejandro M.D. Primary Care Provider [phone] Reason for Referral Outpatient (Routine) - Closed Specialty Diagnoses / Procedures Referred By Contact Refer red To Contact Diagnoses Pancreatitis Chronic (HCC) Exocrine Pancreatic Insufficiency Keisha Bailey APRN, [facility] Procedures ECG 12 Lead C.N.P., M.S.N. 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 [address] [place] [phone] Referral ID Status Reason Start Date Expiration Date Visits Requ ested Visits Authorized [id number] Closed 10/19/2019 10/18/2020 1 1 GUARD Encounter Details Date Type Department Care Team Description 10/19/2019 Clinical Communication Division of Keisha Bailey Gastroenterology [place] Milana, M.S.N. 200 [facility] [place] 200 [place] [address] [place], [place] [phone] Social History Tobacco Use Types Packs/Day Years [...] do you attend zoroastrian or Never 2021 pentecostal services? Do you [...] have completed or the highest Martin, MEd, CALL OR CONTACT CENTRE TEAM LEADER, CAYDEN) degree you have received? Sex Assigned at Date Recorded Male 05/21/2018 2:34 PM CDT documented as of this encounter Miscellaneous Notes Addendum Note - Keisha Bailey APRN, C.N.P., M.S.N. - 10/19/2019 11:13 AM LIFE GUARD Addended by: KEISHA BAILEY on: 10/19/2019 11:13 AM Modules accepted: Orders GUARD Telephone Encounter - Keisha Bailey APRN, C.N.P., [...] for any evidenceof main duct IPMN. Mr. Cotsa attributes many of his symptoms to his [...] me with any further questions or concerns. GUARD documented in this encounter Plan of Treatment Not on filedocumented as of this encounter Results ECG 12 Lead (10/20/2019 1:23 PM LIFE GUARD) P athologist Signature Ventricular Rate 73 BPM MUSE ECG/Min MT Interval 142 ms MUSE QRSD Interval 110 ms MUSE QT Interval 416 ms MUSE QTC Interval 459 ms MUSE P Mchenry 35 degrees MUSE R Mchenry -40 degrees MUSE T Wave Mchenry 48 degrees MUSE Specimen Anatomical Collection Method Collection Time Receive d Time (Source) Location / / Volume Laterality 10/20/2019 1:23 PM 0 2:03 LIFE GUARD PM LIFE GUARD Impressions MUSE - 10/20/2019 2:03 PM LIFE GUARD Normal sinus rhythm Left axis deviation Nonspecific [...] NA (ABNORMAL) Glucose, Fasting (10/20/2019 12:58 PM LIFE GUARD) athologist Signature Glucose, P 181 (H) 70 - 100 10/20/2019 DTL mg/dL 2:22 PM LIFE GUARD Last Intake 5 hr 10/20/2019 DTL 1:18 PM LIFE GUARD Specimen Anatomical Collection Method Collection Time Receive d Time (Source) Location / / Volume Laterality Blood (Blood, 10/20/2019 12:58 10/20/2019 1:18 Venous) PM LIFE GUARD PM LIFE GUARD Brigette Mir APRNNJolene., M.S.N. LAB BLOOD NON ADD- ON Performing Organization Address City/[facility]/ZIP [facility] Phon e Number [facility] - [address] Sodium (10/20/2019 12:58 PM LIFE GUARD) athologist Signature Sodium, S 141 135 - 145 10/20/2019 2:20 DTL mmol/L PM LIFE GUARD Specimen Anatomical Collection Method Collection Time Receive d Time (Source) Location / / Volume Laterality Blood (Blood, 10/20/2019 12:58 10/20/2019 1:18 Venous) PM LIFE GUARD PM LIFE GUARD Brigette Mir APRNNJolene., M.S.N. LAB BLOOD ADD-ON Performing Organization Address City/[facility]/ZIP Code Phon e Number [facility] - [address] Potassium (10/20/2019 12:58 PM LIFE GUARD) athologist Signature Potassium, S 4.2 3.6 - 5.2 10/20/2019 DTL mmol/L 2:20 PM LIFE GUARD Specimen Anatomical Collection Method Collection Time Receive d Time (Source) Location / / Volume Laterality Blood (Blood, 10/20/2019 12:58 10/20/2019 1:18 Venous) PM LIFE GUARD PM LIFE GUARD Anna Marie Mir APRN.N.P., M.S.N. LAB BLOOD ADD-ON Performing Organization Address City/State/ZIP Code Phon e Number [facility] - [address] [place] [address] Laboratories-[facility] 200 [facility] Prothrombin Time (PT) (10/20/2019 12:57 PM LIFE GUARD) P athologist Signature Prothrombin 11.4 9.4 - 12.5 10/20/2019 DTL Time, P sec 1:37 PM LIFE GUARD INR 1.0 0.9 - 1.1 10/20/2019 DTL 1:37 PM LIFE GUARD Comment: ----ADDITIONAL INFORMATION---- Standard intensity warfarin therapeutic range: 2.0 to 3.0 ?? High intensity warfarin therapeutic rang e: 2.5 to 3.5 Specimen Anatomical Collection Method Collection Time Receive d Time (Source) Location / / Volume Laterality Blood (Blood, 10/20/2019 12:57 10/20/2019 1:18 Venous) PM LIFE GUARD PM LIFE GUARD Keisha Bailey APRN C.N.P., M.S.N. LAB BLOOD ADD-ON Performing Organization Address City/State/ZIP Code Phon e Number [facility] - [address] [place] [address] Laboratories-[address] (ABNORMAL) CBC without Differential (10/20/2019 12:57 PM LIFE GUARD) Patholo gist Method Time Signature Hemoglobin 12.4 (L) 13.2 - 10/20/2019 DTL 16.6 g/dL 1:27 PM LIFE GUARD Hematocrit 36.4 (L) 38.3 - 10/20/2019 DTL 48.6 % 1:27 PM LIFE GUARD Erythrocytes 4.15 (L) 4.35 - 10/20/2019 DTL 5.65 1:27 PM LIFE GUARD x10(12)/L MCV 87.7 78.2 - 10/20/2019 DTL 97.9 fL 1:27 PM LIFE GUARD RBC Distrib Width 12.7 11.8 - 10/20/2019 DTL 14.5 % 1:27 PM LIFE GUARD Platelet Count 257 135 - 317 10/20/2019 DTL x10(9)/L 1:27 PM LIFE GUARD Leukocytes 7.8 3.4 - 9.6 10/20/2019 DTL x10(9)/L 1:27 PM LIFE GUARD Specimen Anatomical Collection Method Collection Time Receive d Time (Source) Location / / Volume Laterality Blood (Blood, 10/20/2019 12:57 10/20/2019 1:18 Venous) PM LIFE GUARD PM LIFE GUARD Keisha Bailey APRN, C.N.P., M.S.N. LAB BLOOD ADD-ON Performing Organization Address City/State/ZIP Code Phon e Number [facility] - [address] [place], [place] [address] [facility] [place] [address] Laboratories-[facility] [address] BMD Bone Density Spine Hips (10/20/2019 12:21 PM LIFE GUARD) Anatomical Region Laterality Modality Hip, Lumbar Spine, Nuclear Medicine RST LOS, N/A Radiographic Imaging Musculoskeletal ARZ LOS, Muskuloskeletal FLA LOS Specimen (Source) Anatomical Collection Method Collection Time Re ceived Time Location / / Volume Laterality 10/20/2019 12:32 PM LIFE GUARD Impressions 10/20/2019 12:32 PM LIFE GUARD No evidence of osteoporosis or osteopeni a found Narrative 10/20/2019 12:32 PM LIFE GUARD EXAM: ??BMD BONE DENSITY SPINE HIPS FINDINGS: [...] including images and graphs, is available in [employer]. In the absence of other causes of [...] documented as of this encounter Care Teams Corporate Legal Manager Relationship Specialty Start Date End Date Ewa Alejandro M.D. PCP - General 03/13/17 01/09/[address] [phone] documented as of this encounter
--- OUTSIDE RECORDS SUMMARY | 2022-05-27 12:06 | XMS_ITS | Encounter Summary ---
:1945 Author Organization [facility] Address [address] [place] [address] Care Team Providers Name Role Phone Ewa Alejandro M.D. Primary Care Provider [phone] Reason for Referral Specialty Diagnoses / Procedures Referred By Contact Refer red To Contact Debbie Marquis M.D. [address] [address] Referral ID Status Reason Start Date Expiration Date Visits Requ ested Visits Authorized OR SCHEDULER Reason for Visit Outpatient (Routine) - Closed Specialty Diagnoses / Procedures Referred By Contact Refer red To Contact Endocrinology Diagnoses Diabetes Mellitus Type 2 With Diabetic Neuropathy (HCC) Keisha Lopez APRN, [facility] C.N.P., M.S.N. [address] [place] [phone] Referral ID Status Reason Start Date Expiration Date Visits Requ ested Visits Authorized [id number] Closed 10/11/2019 10/10/2020 1 1 Encounter Details Date Type Department Care Team Description 10/20/2019 Comprehensive Visit Division of Josselin Lopez APRN, C.N.P., M.S.N. [address] [place] [phone] 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) (Primary Dx); Endocrinology in Debbie Marquis M.D. Hyperlipidemia; [place], Pancreatitis Ch licolidya Recurrent (HCC); [place] Stroke Cerebrovascular Accid ent Personal History [address] [place] [phone] Social History Tobacco Use Types Packs/Day Years [...] do you attend yazdanism or Never 2021 episcopal services? Do you [...] have completed or the highest Martin, MEd, MILL CONTROL OPERATOR, CAYDEN) degree you have received? Sex Assigned at Date Recorded Male 05/21/2018 2:34 PM CDT documented as of this encounter Patient Instructions Patient Debbie Reagan M.D. - 10/20/2019 2:45 PM CST 1. Lantus 30 units every night 2. NovoLog 10 units with each meal 3. Please check BS before each meal and at bedtime. Goal blood sugar between 100-150. 4. intake clinician visit. 4. Office visit in 3 months. [...] your mealtime insulin based on the table. OR SCHEDULER documented in this encounter Progress Notes Debbie Marquis M.D. - 10/20/2019 2:45 PM CST [facility] Endocrinology, Diabetes, Metabolism and Nutrition Metabolic Clinic Date of Visit: 10/20/2019 Supervising advertising sales consultant: Dr. Garcia Chief Complaint: Type 2 diabetes mellitus History of Present Illness Jonnathan Costa is a 74-year-old man who presents for evaluation of type 2 diabetes mellitus. He has a background of idiopathic, chronic calcific pancreatitis with exocrine insufficiency, hypertension, hyperlipidemia, and Agent [place] exposure. He was diagnosed with type 2 [...] tablet daily ??? blood sugar diagnostic (ACCU-CHEK IMHAI PLUS TEST STRP) strips ??? budesonide-formoterol (for_SYMBICORT) [...] tablet 11 ??? flash glucose scanning reader (EdventuresSTYLE ILEANA 14 DAY READER) misc Use as [...] injection LW Addl Instr:Indicated for: Diabetes ??? mwuuhc-layhttuf-akjjesm (CREON) 6,000-19,000-30,[address] capsule Take [...] at the [facility]. ??? TONSILLECTOMY ??? VASECTOMY Physical Examination General: [...] titrate over time for optimal control. - intake clinician visit to review general Diabetes Education and [...] your mealtime insulin based on the table. OR SCHEDULER Asher Garcia M.D. - 10/20/2019 2:45 PM [...] patient with and address all these recommendations. OR SCHEDULER documented in this encounter Plan of Treatment Scheduled Referrals Name Type Priority Associated Diagnoses Order S chedule Nutrition - Outpatient Referral Routine Diabetes Mellitus Exp ected: intake clinician Type 2 With Diabetic visit (clinic) Neuropathy (HCC) (Approxim ate), Expires: 10/20/2020 documented as of this encounter Results C-Peptide (10/20/2019 12:54 PM SENIOR SCHEDULER) P athologist Signature C-Peptide, S 2.2 1.1 - 4.4 10/20/2019 DTL ng/mL 5:16 PM SENIOR SCHEDULER Specimen Anatomical Collection Method Collection Time Receive d Time (Source) Location / / Volume Laterality Blood (Blood, 10/20/2019 12:54 10/20/2019 4:24 Venous) PM SENIOR SCHEDULER PM SENIOR SCHEDULER Debbie Marquis M.D. LAB BLOOD ADD-ON Performing Organization Address City/State/ZIP Code Phon e Number [facility] - [address] [place], [place] [address] [facility] [place] [place] [address] Laboratories-[facility] [address] (ABNORMAL) Lipid Panel (10/20/2019 12:54 PM SENIOR SCHEDULER) P athologist Signature Cholesterol, 172 mg/dL 10/20/2019 DTL Total 5:16 PM SENIOR SCHEDULER Comment: ----REFERENCE VALUE---- Desirable: < 200 Borderline high: 200 - 239 High: > or = 240 Triglycerides 214 (H) mg/dL 10/20/2019 5:16 PM SENIOR SCHEDULER DTL Comment: ----REFERENCE VALUE---- Normal: <150 Borderline high: 150-199 High: 200-499 Very high: > or =500 Cholesterol, HDL, S 35 (L) >=40 mg/dL 10/20/2019 5:16 PM SENIOR SCHEDULER DTL Calculated LDL 94 mg/dL 10/20/2019 5:16 PM SENIOR SCHEDULER DT L Comment: ----REFERENCE VALUE---- Desirable: <100 Above Desirable: 100-129 Borderline high: 130-159 High: 160-189 Very high: > or =190 Cholesterol, Non-HDL, Calculated 137 mg/dL 020 5:16 PM SENIOR SCHEDULER DTL Comment: ----REFERENCE VALUE---- Desirable: <130 Above Desirable: 130-159 Borderline high: 160-189 High: 190-219 Very high: > or =220 Specimen Anatomical Collection Method Collection Time Receive d Time (Source) Location / / Volume Laterality Blood (Blood, 10/20/2019 12:54 10/20/2019 4:24 Venous) PM SENIOR SCHEDULER PM SENIOR SCHEDULER Debbie Marquis M.D. LAB BLOOD ADD-ON Performing Organization Address City/State/ZIP Code Phon e Number [facility] - [address] [place] [address] [facility] [place] [address] Laboratories-[facility] 200 [facility] documented in this encounter Visit Diagnoses Diagnosis 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) - Primary Hyperlipidemia Pancreatitis Chronic Recurrent (HCC) Stroke Cerebrovascular Accident Personal History documented in this encounter Additional Health Concerns Assessment Noted Time PHQ-9 Depression Total Score: 18 04/28/2018 11:27 AM C DT documented as of this encounter Care Teams Senior Technical Recruiter Relationship Specialty Start Date End Date Ewa Alejandro M.D. PCP - General 6/15/17 [address] [place] [address] documented as of this encounter
--- OUTSIDE RECORDS SUMMARY | 2022-05-27 12:06 | XMS_ITS | Encounter Summary ---
:1945 Demographics Address [address] [facility] [address] Mobile Phone Home Phone Email Address Email Address Preferred Language ENG Marital Status Adventist Affiliation Unknown Race White Ethnic Group Not or Author Organization [facility] Address [address] [place] [address] Care Team Providers Name Role Phone Ewa Alejandro M.D. Primary Care Provider [phone] Encounter Details Date Type Department Care Team Description 10/27/2019 Clinical Communication Department of Family Kirill Torres [facility], Ewa Barclay, Clinic, in [place] [address] [place] [phone] Social History Tobacco Use Types Packs/Day Years [...] have completed or the highest Martin, MEd, STRUCTURAL WELDER, CAYDEN) degree you have received? Sex Assigned at Date Recorded Male 05/21/2018 2:34 PM CDT documented as of this encounter Miscellaneous Notes Telephone Encounter - Morelia Acuna L.P.N. - 10/28/2019 12:06 PM CST Patient in clinic at scheduling desk- inquiring scheduling for the Pulmonary testing. Patient to have this done at [facility]. Order will be faxed and patient scheduling will contact patient to set this up. IN COMPANION Telephone Encounter - Sugey Guevara, CMauroMMauroAMauro - 10/27/2019 1:47 PM CST SUBJECTIVE CHIEF COMPLAINT / REASON FOR CALL No chief complaint on file. PLAN The following information was provided: No order in for pulmonary in [place] please place that order, patient is aware that once order is placed that Tucker will call him to set up that appt Information/Education: patient/caller able to teach back The following references were used: none IN COMPANION Telephone Encounter - Shanon Glover - 10/27/2019 [...] back. Name of Medication (if relevant): na IN COMPANION documented in this encounter Plan of Treatment Not on filedocumented as of this encounter Visit Diagnoses Not on filedocumented in this encounter Additional Health Concerns Assessment Noted Time PHQ-9 Depression Total Score: 18 04/28/2018 11:27 AM C DT documented as of this encounter Care Teams Fur Cutter Relationship Specialty Start Date End Date Ewa Alejandro M.D. PCP - General 03/13/17 01/09/[address] [phone] documented as of this encounter
--- OUTSIDE RECORDS SUMMARY | 2022-05-27 12:06 | XMS_ITS | Encounter Summary ---
:1945 Author Organization [facility] Address [address] [place] [address] Care Team Providers Name Role Phone Ewa Alejandro M.D. Primary Care Provider [phone] Encounter Details Date Type Department Care Team Description 10/20/2019 Hospital Encounter Department of Keisha Lopez, Panc reatitis Chronic (HCC); Laboratory Medicine BUILDING INSULATION INSTALLER, C.N.P., Exocrin e Pancreatic Insufficiency (HCC) and Pathology, [facility] in [address] [place] [phone] [place] [address] [place], [place] (Work) [phone] Social History Tobacco Use Types Packs/Day Years [...] do you attend catholic or Never 2021 pentecostal services? Do you belong to any clubs or No 10/09/2021 organizations such as catholic groups, unions, fraTiempo Listo or athletic groups, or school groups? How [...] completed or the highest Martin, MEd, SENIOR TELECOMMUNICATIONS ENGINEER, CAYDEN) degree you have received? Sex [...] SYRINGE-NEEDLE,INSULIN, 0 0.5 ML (INSULIN SYRINGE MIS) dfjytd-zjiufwit-owckzho Take 2 capsules by 240 capsule 3 [...] reader (FREESTYLE ILEANA 14 DAY READ[address]) [facility] flash glucose sensor Use as directed. 6 [...] Pancreatitis Chronic Res ults for this PM DROP WIRE STRINGER (HCC) procedure are in Exocrine Pancreatic the resu lts Insufficiency ([facility]) section. POTASSIUM, S/P Routine 10/20/2019 12:58 Pancreatitis Chronic R esults for this PM DROP WIRE STRINGER (HCC) procedure are in Exocrine Pancreatic the resu lts Insufficiency ([facility]) section. GLUCOSE, FASTING, Routine 10/20/2019 12:58 Pancreatitis Chroni c Results for this S/P PM DROP WIRE STRINGER (HCC) procedure are in Exocrine Pancreatic the resu lts Insufficiency ([facility]) section. PROTHROMBIN TIME Routine 10/20/2019 12:57 Pancreatitis Chronic Results for this (PT), P PM DROP WIRE STRINGER ([facility]) procedure are in Exocrine Pancreatic the resu lts Insufficiency ([facility]) section. CBC WITHOUT Routine 10/20/2019 12:57 Pancreatitis Chronic Res ults for this DIFFERENTIAL, B PM DROP WIRE STRINGER (HCC) procedure are in Exocrine Pancreatic the resu lts Insufficiency ([facility]) section. documented in this encounter Results (ABNORMAL) Glucose, Fasting (10/20/2019 12:58 PM DROP WIRE STRINGER) P athologist Signature Glucose, P 181 (H) 70 - 100 10/20/2019 DTL mg/dL 2:22 PM DROP WIRE STRINGER Last Intake 5 hr 10/20/2019 DTL 1:18 PM DROP WIRE STRINGER Specimen Anatomical Collection Method Collection Time Receive d Time (Source) Location / / Volume Laterality Blood (Blood, 10/20/2019 12:58 10/20/2019 1:18 Venous) PM DROP WIRE STRINGER PM DROP WIRE STRINGER Keisha Lopez APRN, C.N.P., M.S.N. LAB BLOOD NON ADD- ON Performing Organization Address City/[facility] Phon e Number [facility] - [address] Sodium (10/20/2019 12:58 PM DROP WIRE STRINGER) athologist Signature Sodium, S 141 135 - 145 10/20/2019 2:20 DTL mmol/L PM DROP WIRE STRINGER Specimen Anatomical Collection Method Collection Time Receive d Time (Source) Location / / Volume Laterality Blood (Blood, 10/20/2019 12:58 10/20/2019 1:18 Venous) PM DROP WIRE STRINGER PM DROP WIRE STRINGER Keisha Lopez APRN, C.N.P., M.S.N. LAB BLOOD ADD-ON Performing Organization Address [facility] Phon e Number [facility] - [address] Potassium (10/20/2019 12:58 PM DROP WIRE STRINGER) athologist Signature Potassium, S 4.2 3.6 - 5.2 10/20/2019 DTL mmol/L 2:20 PM DROP WIRE STRINGER Specimen Anatomical Collection Method Collection Time Receive d Time (Source) Location / / Volume Laterality Blood (Blood, 10/20/2019 12:58 10/20/2019 1:18 Venous) PM DROP WIRE STRINGER PM DROP WIRE STRINGER Keisha Lopez APRN, C.N.P., M.S.N. LAB BLOOD ADD-ON Performing Organization Address City/[facility]/ZIP [facility] Phon e Number [facility] - [address] Prothrombin Time (PT) (10/20/2019 12:57 PM DROP WIRE STRINGER) athologist Signature Prothrombin 11.4 9.4 - 12.5 10/20/2019 DTL Time, P sec 1:37 PM DROP WIRE STRINGER INR 1.0 0.9 - 1.1 10/20/2019 DTL 1:37 PM DROP WIRE STRINGER Comment: ----ADDITIONAL INFORMATION---- Standard intensity warfarin therapeutic range: 2.0 to 3.0 ?? High intensity warfarin therapeutic rang e: 2.5 to 3.5 Specimen Anatomical Collection Method Collection Time Receive d Time (Source) Location / / Volume Laterality Blood (Blood, 10/20/2019 12:57 10/20/2019 1:18 Venous) PM DROP WIRE STRINGER PM DROP WIRE STRINGER Keisha Lopez APRN, C.N.P., M.S.N. LAB BLOOD ADD-ON Performing Organization Address City/[facility] Phon e Number [facility] - 200 [place] [address] [place] [address] (ABNORMAL) CBC without Differential (10/20/2019 12:57 PM DROP WIRE STRINGER) [facility] gist Method Time Signature Hemoglobin 12.4 (L) 13.2 - 10/20/2019 DTL 16.6 g/dL 1:27 PM DROP WIRE STRINGER Hematocrit 36.4 (L) 38.3 - 10/20/2019 DTL 48.6 % 1:27 PM DROP WIRE STRINGER Erythrocytes 4.15 (L) 4.35 - 10/20/2019 DTL 5.65 1:27 PM DROP WIRE STRINGER x10(12)/L MCV 87.7 78.2 - 10/20/2019 DTL 97.9 fL 1:27 PM DROP WIRE STRINGER RBC Distrib Width 12.7 11.8 - 10/20/2019 DTL 14.5 % 1:27 PM DROP WIRE STRINGER Platelet Count 257 135 - 317 10/20/2019 DTL x10(9)/L 1:27 PM DROP WIRE STRINGER Leukocytes 7.8 3.4 - 9.6 10/20/2019 DTL x10(9)/L 1:27 PM DROP WIRE STRINGER Specimen Anatomical Collection Method Collection Time Receive d Time (Source) Location / / Volume Laterality Blood (Blood, 10/20/2019 12:57 10/20/2019 1:18 Venous) PM DROP WIRE STRINGER PM DROP WIRE STRINGER Keisha Lopez APRN, C.N.P., M.S.N. LAB BLOOD ADD-ON Performing Organization Address City/[facility] Phon e Number [facility] - [address] [address] [facility] [address] documented in this encounter Visit Diagnoses Diagnosis Pancreatitis Chronic (HCC) Exocrine Pancreatic Insufficiency documented in this encounter Additional Health Concerns Assessment Noted Time PHQ-9 Depression Total Score: 18 04/28/2018 11:27 AM C DT documented as of this encounter Care Teams Planning Rn Relationship Specialty Start Date End Date Ewa Alejandro M.D. PCP - General 03/13/17 01/09/[address] [phone] documented as of this encounter
--- OUTSIDE RECORDS SUMMARY | 2022-05-27 12:06 | XMS_ITS | Encounter Summary ---
:1945 Author Organization [facility] Address [address] [place] [address] Care Team Providers Name Role Phone Ewa Alejandro M.D. Primary Care Provider [phone] Reason for Visit Reason Comments Treatment Questions Encounter Details Date Type Department Care Team Description 12/11/2019 Clinical Communication Division of [facility], Prachi bernardo Questions [facility] Internal D, R.N. Medicine, [place], [place] [address] [place] [address] Social History Tobacco Use Types Packs/Day Years [...] do you attend christianity or Never 2021 anglican services? Do you [...] completed or the highest Martin, MEd, CARD BRUSHER, CAYDEN) degree you have received? Sex Assigned [...] care: Yes The following references were used: [facility] novel coronavirus (COVID- 19) resources documented in this encounter Plan of Treatment Not on filedocumented as of this encounter Visit Diagnoses Not on filedocumented in this encounter Additional Health Concerns Assessment Noted Time PHQ-9 Depression Total Score: 18 04/28/2018 11:27 AM C DT documented as of this encounter Care Teams Mopper Relationship Specialty Start Date End Date Ewa Alejandro M.D. PCP - General 03/13/17 01/09/[address], [place] [address] documented as of this encounter
--- OUTSIDE RECORDS SUMMARY | 2022-05-27 12:06 | XMS_ITS | Encounter Summary ---
:1945 Author Organization [facility] Address [address] [place] [address] Care Team Providers Name Role Phone Ewa Alejandro M.D. Primary Care Provider [phone] Encounter Details Date Type Department Care Team Description 11/18/2019 Hospital Encounter Department of Dolores, Personal History Of Laboratory Medicine [place] Malignant Neoplasm Of in [place], [address] [facility] [address] [place] [phone] Social History Tobacco Use Types Packs/Day [...] do you attend mu-ism or Never 2021 methodist services? Do you [...] have completed or the highest Martin, MEd, FINANCIAL SERVICES TECHNICIAN, CAYDEN) degree you have received? Sex [...] SYRINGE-NEEDLE,INSULIN, 0 0.5 ML (INSULIN SYRINGE MISC) igvhfa-[id number]-wpwuckw Take 2 capsules by 240 capsule 3 [...] Priority Date/Time Associated Diagnosis Comme nts CYTOLOGY NON-LDR RN Routine 11/18/2019 9:01 AM Personal History O f Results for this (SCHEDULED) [place] FORMER Malignant Neoplasm procedure are in Of Bladder the results section. documented in this encounter Results Cytology Non-LDR RN (Scheduled) (11/18/2019 9:01 AM [place] FORMER) Component Value Ref Test Analysis Performed At [facility] gist Range Method Time Signature 11/19/2019 [facility] 10:23 AM [place] FORMER Fixative 50% REAGENT 11/19/2019 [facility] ALCOHOL 10:23 AM [place] FORMER Report Brady Goodrich MD 11/19/2019 [facility] electronically I verify that I have examined all relevant slides/ma terials 10:23 AM signed by for the specimen(s) and rendered or confirmed the diagnosis. [place] FORMER Gross Description Received 80 11/19/2019 [facility] ml of cloudy 10:23 AM yellow [place] FORMER alcohol fixed fluid. Collection VOIDED 11/19/2019 [facility] Procedure 10:23 AM [place] FORMER Source A. Urine, 11/19/2019 [facility] Clean Catch, 10:23 AM voided [place] FORMER Clinical History Z85.51 11/19/2019 [facility] 10:23 AM [place] FORMER Interpretation A. 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 10:23 A M [place] FORMER Specimen Anatomical Collection Method Collection Time Receive d Time (Source) Location / / Volume Laterality Varies (Urine, 11/18/2019 9:01 AM 020 7:13 Clean Catch) [place] FORMER AM [place] FORMER Narrative This result has an attachment that is no t available. Prasanna Bernal M.D. LAB SURG PATH ORDERABLES Performing Organization Address City/State/ZIP Code Phon e Number [facility] [address] [place] [address] [facility] [address] [facility] [address] [facility] documented in this encounter Visit Diagnoses Diagnosis Personal History Of Malignant Neoplasm O f Bladder documented in this encounter Additional Health Concerns Assessment Noted Time PHQ-9 Depression Total Score: 18 04/28/2018 11:27 AM C DT documented as of this encounter Care Teams Masticator Relationship Specialty Start Date End Date Ewa Alejandro M.D. PCP - General 03/13/17 01/09/20 [address] [place] [address] documented as of this encounter
--- OUTSIDE RECORDS SUMMARY | 2022-05-27 12:06 | XMS_ITS | Encounter Summary ---
:1945 Author Organization [facility] Address [address] [place] [address] Care Team Providers Name Role Phone Ewa Alejandro M.D. Primary Care Provider [phone] Reason for Referral Outpatient (Routine) - Closed Specialty Diagnoses / Procedures Referred By Contact Refer red To Contact Pulmonary Medicine Diagnoses Chronic Cough Flavia Alexia [facility] [place] [address] [address] Referral ID Status Reason Start Date Expiration Date Visits Requ ested Visits Authorized [id number] Closed 10/27/2019 10/26/2020 1 1 ER OPERATOR Encounter Details Date Type Department Care Team Description 10/27/2019 Orders Only Department of [facility] Philip Barnard Chronic (Primary Medicine, [place]cl[place], Martin) Clinic, in [place] [address] [place] [phone] Social History Tobacco Use Types Packs/Day Years [...] do you attend scientologist or Never 2021 sikhism services? Do you [...] completed or the highest Martin, MEd, LEGAL BILLING COORDINATOR, CAYDEN) degree you have received? Sex Assigned at Date Recorded Male 05/21/2018 2:34 PM CDT documented as of this encounter Plan of Treatment Scheduled Referrals Name Type Priority Associated Diagnoses Order [facility] Pulmonary Medicine Outpatient Referral Routine Cough Chronic E xpected: - Cough consult 10/28/2019, (clinic) Expires: 10/27/2022 documented as of this encounter Results DX Chest AP or PA and Lateral 2 Views (11/16/2019 8:25 AM COATER OPERATOR) Anatomical Region Laterality Modality Chest, Thoracic RST LOS, Thoracic ARZ LOS, Thoracic N/A Digital Radiography FLA LOS Specimen (Source) Anatomical Collection Method Collection Time Re ceived Time Location / / Volume Laterality 11/16/2019 8:31 AM COATER OPERATOR Impressions 11/16/2019 8:32 AM COATER OPERATOR No acute radiographic abnormality. Narrative 11/16/2019 8:32 AM COATER OPERATOR EXAM: DX CHEST AP OR PA AND [...] documented as of this encounter Care Teams Steam Power Plant Operator Relationship Specialty Start Date End Date Ewa Alejandro M.D. PCP - General 03/13/17 01/09/[address] [address] documented as of this encounter
--- OUTSIDE RECORDS SUMMARY | 2022-05-27 12:06 | XMS_ITS | Encounter Summary ---
:1945 Author Organization [facility] Address [address] [place] [address] Care Team Providers Name Role Phone Ewa Alejandro M.D. Primary Care Provider [phone] Reason for Visit Reason Comments other patient requesting to have a ll specialist appointment in [place] be coordinated by primary provi vasquez Appointment Request (Routine) - Closed Specialty Diagnoses / Procedures Referred By Contact Refer red To Contact Family Medicine Referral ID Status Reason Start Date Expiration Date Visits Requ ested Visits Authorized [id number] Closed 09/28/2019 09/27/2020 1 1 Encounter Details Date Type Department Care Team Description 10/15/2019 Office Visit Department of Family Alicia freed Disorders Of Lung (Primary Dx); Medicine, [place], Werner s Mellitus Type 2 Hyperglycemia (HCC) Clinic, in [place] [address] [place] [phone] Social History Tobacco Use Types Packs/Day Years [...] you attend latter day or Never 2021 mu-ism services? Do you [...] have completed or the highest Martin, MEd, HIGHWAY MAINTENANCE SUPERVISOR, CAYDEN) degree you have received? Sex Assigned at Date Recorded Male 05/21/2018 2:34 PM CDT documented as of this encounter Last Filed Vital Signs Vital Sign Reading Time Taken Comments Blood Pressure 134/66 10/15/2019 11:38 AM FARM APPRAISER Pulse 68 10/15/2019 11:38 AM FARM APPRAISER Temperature 36.4 ??C (97.5 ??F) 10/15/2019 11:38 AM FARM APPRAISER Respiratory Rate 18 10/15/2019 11:38 AM FARM APPRAISER Oxygen Saturation - - Inhaled Oxygen Concentration - - Weight 107 kg (236 lb 12.4 oz) 10/15/2019 11:38 AM FARM APPRAISER Height 188 cm (6' 2.02) 10/15/2019 11:38 AM FARM APPRAISER Body Mass Index 30.39 10/15/2019 11:38 AM FARM APPRAISER documented in this encounter Progress Notes Ewa Alejandro M.D. - 10/15/2019 11:45 AM CST SUBJECTIVE Chief Complaint Patient presents with ??? other patient requesting to have all specialist appointment in [place] be coordinated by primary provider HISTORY OF PRESENT ILLNESS Jonnathan Costa is a 74 y.o. male who presents to the clinic today to discuss referrals to [place]. He states that he has not felt [...] supplies. He would like a referral to [place], but he is not sure which specialist to goto. He believes that he went through a depression recently. He was sleeping between 11-12 hours a day and still fatigued. Then around 09/17/19, he woke and felt better and happy. He is following with the Pancreas Clinic at [facility] and started following with Endocrinology to help [...] injection LW Addl Instr:Indicated for: Diabetes ??? sghvbg-ulngjwot-uuizlgg (CREON) 6,000-19,000-30,[address] capsule Take [...] 06/18/2011 intolerant to CPAP therapy ??? Asthma ([facility]) 10/16/2009 Pulmonary symptomatology, diagnosis at the [facility] unclear, [...] INSERTION INTRAOCULAR LENS Left 04/2008 At the [facility] ??? LASER OF PROSTATE W/ GREEN LIGHT PVP 08/28/2016 Greenlight photoselective vaporization of the prostate and cystoscopy with bladder biopsy and fulguration of a 2cm area; 08/28/[address] Prasanna Bernal at the [facility]. ??? TONSILLECTOMY ??? VASECTOMY PREVENTIVE SERVICES: Social [...] lung disease PLAN: Will place referral to [place]. #2 Diabetes Mellitus Type 2 Hyperglycemia (HCC) PLAN: He is scheduled with Endocrinology at [facility] for further evaluation of this. #3 Follow [...] their behalf by Karen Givens, a trained medical/surgery registered nurse. The creation of this record is based on the scribe's personal observations and the provider's statements to them. This documenthas been checked and approved by the attending provider. APPRAISER documented in this encounter Plan of Treatment Not on filedocumented as of this encounter Visit Diagnoses Diagnosis Other Disorders Of Lung - Primary Diabetes Mellitus Type 2 Hyperglycemia ( HCC) documented in this encounter Additional Health Concerns Assessment Noted Time PHQ-9 Depression Total Score: 18 04/28/2018 11:27 AM C DT documented as of this encounter Care Teams Agent Relationship Specialty Start Date End Date Ewa Alejandro M.D. PCP - General 03/13/17 01/09/20 [address] [place] [address] documented as of this encounter
--- OUTSIDE RECORDS SUMMARY | 2022-05-27 12:07 | XMS_ITS | Encounter Summary ---
:1945 Author Organization [facility] Address [address] [place] [address] Care Team Providers Name Role Phone Ewa Alejandro M.D. Primary Care Provider [phone] Encounter Details Date Type Department Care Team Description 06/30/2019 Documentation Division of Gastroenterology Ran Vilchis in [facility] cameron [address] [facility] [address] [place] [address] Social History Tobacco Use Types Packs/Day Years [...] have completed or the highest Martin, MEd, CONVEYOR CONSOLE OPERATOR, CAYDEN) degree you have received? Sex Assigned at Date Recorded Male 05/21/2018 2:34 PM CDT documented as of this encounter Plan of Treatment Not on filedocumented as of this encounter Visit Diagnoses Not on filedocumented in this encounter Additional Health Concerns Assessment Noted Time PHQ-9 Depression Total Score: 18 04/28/2018 11:27 AM C DT documented as of this encounter Care Teams Corduroy Cutter Operator Relationship Specialty Start Date End Date Ewa Alejandro M.D. PCP - General 03/13/17 01/09/20 [address], [place] [address] documented as of this encounter
--- OUTSIDE RECORDS SUMMARY | 2022-05-27 12:07 | XMS_ITS | Encounter Summary ---
:1945 Author Organization [facility] Address [address] [place] [address] Care Team Providers Name Role Phone Ewa Alejandro M.D. Primary Care Provider [phone] Reason for Referral Outpatient (Routine) - Closed Specialty Diagnoses / Procedures Referred By Contact Madelaine castillo To Contact Nephrology and Rob Cantu [place] [facility] Hypertension [place] [address] [place] [address] Referral ID Status Reason Start Date Expiration Date Visits Requ ested Visits Authorized [id number] Closed 01/26/2019 01/26/2020 1 1 Reason for Visit Outpatient (Routine) - Closed Specialty Diagnoses / Procedures Referred By Contact Madelaine castillo To Contact Nephrology and Rob Cantu [place] [facility] Hypertension [place] [address] [place] [address] Referral ID Status Reason Start Date Expiration Date Visits Requ ested Visits Authorized [id number] Closed 12/24/2018 12/24/2019 1 1 Encounter Details Date Type Department Care Team Description 01/26/2019 Office Visit Division of Nephrology Rob Cantu Hyp ertension Essential Primary (Primary Dx); and Hypertension in [place] Sleep Apnea [place], [place] [address] [facility] [address] [place] [phone] [phone] Social History Tobacco Use Types Packs/Day Years [...] do you attend yazidi or Never 2021 yarsanism services? Do you [...] Sign Reading Time Taken Comments Blood Pressure 149/75 01/26/2019 3:07 PM CDT Pulse 76 01/26/2019 3:07 PM CDT Temperature - - Respiratory Rate - - Oxygen Saturation - - Inhaled Oxygen Concentration - - Weight 108 kg (238 lb 15.7 oz) 01/26/2019 2:32 PM CDT Height - - Body Mass Index 30.83 11/09/2018 8:55 AM CAN PUSHER documented in this encounter Progress Notes Rob Cantu M.D. - 01/26/2019 3:00 PM CDT SUBJECTIVE REASON FOR VISIT Patient returns for blood pressure recheck. HISTORY OF PRESENT ILLNESS Mr. Costa returns for blood pressure recheck. He is currently on chlorthalidone 25 mg once daily, losartan 100 mg once daily, and diltiazem 120 mg once daily. Since he was seen here 4 weeks ago he wasrestarted on Lexapro in a dose of 20 mg daily. He had been off the medication since last fall. He also was placed on Ativan at the same time. After restarting these medications he became quite sleepy. He was worried that this was a side effect of his blood pressure lowering medication. He spoke with my nurse advised him to hold the Ativan. He is somewhat improved but still sleepy. He does have a prior diagnosis of sleep apnea but was intolerant of CPAP. He has taken his blood pressure with his home unit and recorded readings of 200/100 mm Hg. He is having no symptoms of headache or other neurologicsymptoms or symptoms to suggest heart failure or angina. OBJECTIVE DIAGNOSTICS Blood pressure this afternoon is 149/75 mm Hg with pulse 76 and regular. This is quite similar to a 6 hour average done 4 weeks ago of 148/66 mm Hg. ASSESSMENT / PLAN #1 Hypertension Essential Primary #2 Sleep Apnea #3 Side-effects from medications I suspect that the sudden excessive sleepiness was the results of starting a high dose of Lexapro with Ativan. His underlying sleep apnea would be a contributing factor as well. I explained to him thatI doubt his sleepiness was related to the new antihypertensive medication. His blood pressure remained inadequately controlled. I suspect that the readings he is obtaining at home are in accurate. I carefully reviewed his current medications. I advised him to reduce the dose of Lexapro to 10 mg daily which is the recommended an initial dose of this medication. He will continue to withhold taking Ativan. I am going to do an overnight oximetry to reassess for the presence of sleep apnea and its severity. He is willing to be seen in the [facility] should this screening test be abnormal. I am not going to make any change in his blood pressure program today. When he returns to discuss the results of the overnight oximetry test he will bring his home blood pressure unit with him and we will check it f or accuracy. He is in agreement with this plan. Rob Cantu M.D. documented in this encounter Plan of Treatment Scheduled Referrals Name Type Priority Associated Order Schedule Diagnoses Nephrology and Outpatient Referral Routine Expect ed: Hypertension office 01/27/20 19 visit (clinic) (Approximate) , Expires: 01/26/2022 documented as of this encounter Results Home Overnight Oximetry (02/08/2019) Specimen (Source) Anatomical Location Collection Method / Collectio n Time Received Time / Laterality Volume 02/08/2019 Narrative This result has an attachment that is no t available. Rob Cantu M.D. PFT ORDERABLES Performing Organization Address City/State/ZIP Code Phon e Number [facility] documented in this encounter Visit Diagnoses Diagnosis Hypertension Essential Primary - Primary Sleep Apnea documented in this encounter Additional Health Concerns Assessment Noted Time PHQ-9 Depression Total Score: 18 04/28/2018 11:27 AM C DT documented as of this encounter Care Teams Supreme Court Justice Relationship Specialty Start Date End Date Ewa Alejandro M.D. PCP - General 03/13/17 01/09/20 [address] [place] [address] documented as of this encounter
--- OUTSIDE RECORDS SUMMARY | 2022-05-27 12:07 | XMS_ITS | Encounter Summary ---
:1945 Author Organization [facility] Address [address] [place] [address] Care Team Providers Name Role Phone Ewa Alejandro M.D. Primary Care Provider Encounter Details Date Type Department Care Team Description 08/30/2019 Clinical Communication Department of Family Kirill Torres [facility], [place], Clinic, in [place] [address] [place] [phone] Social History Tobacco Use Types Packs/Day Years [...] do you attend muslim or Never 2021 mosque services? Do you [...] have completed or the highest Martin, MEd, POULTRY TRIMMER, CAYDEN) degree you have received? Sex [...] patient back Name of Medication (if relevant): ING THERAPY TEACHER documented in this encounter Plan of Treatment Not on filedocumented as of this encounter Visit Diagnoses Not on filedocumented in this encounter Additional Health Concerns Assessment Noted Time PHQ-9 Depression Total Score: 18 04/28/2018 11:27 AM C DT documented as of this encounter Care Teams Human Resources Professional Relationship Specialty Start Date End Date Ewa Alejandro M.D. PCP - General 03/13/17 01/09/20 [address], [place] [address] documented as of this encounter
--- OUTSIDE RECORDS SUMMARY | 2022-05-27 12:07 | XMS_ITS | Encounter Summary ---
:1945 Author Organization [facility] Address [address] [place] [address] Care Team Providers Name Role Phone Ewa Alejandro M.D. Primary Care Provider [phone] Reason for Referral Outpatient (Routine) - Closed Specialty Diagnoses / Procedures Referred By Contact Madelaine castillo To Contact Nephrology and Rob Cantu [place] [facility] [place] [address] [place] [address] Referral ID Status Reason Start Date Expiration Date Visits Requ ested Visits Authorized [id number] Closed 12/24/2018 12/24/2019 1 1 Reason for Visit Outpatient (Routine) - Closed Specialty Diagnoses / Procedures Referred By Contact Madelaine castillo To Contact Nephrology and Rob Cantu [place] [facility] [place] [address] [place] [address] Referral ID Status Reason Start Date Expiration Date Visits Requ ested Visits Authorized [id number] Closed 11/24/2018 11/24/2019 1 1 Encounter Details Date Type Department Care Team Description 12/24/2018 Office Visit Division of Nephrology Rob Cantu Hyp ertension Essential and Hypertension in [place] Primary (Primary Dx) [employer], [place] [address] [facility] [address] [place] [address] [phone] Social History Tobacco Use Types Packs/Day Years [...] do you attend restorationism or Never 2021 rastafarian services? Do you [...] documented as of this encounter Care Teams Ammonia Refrigeration Technician Relationship Specialty Start Date End Date Ewa Alejandro M.D. PCP - General 03/13/17 01/09/20 [address], [place] [address] documented as of this encounter
--- OUTSIDE RECORDS SUMMARY | 2022-05-27 12:07 | XMS_ITS | Encounter Summary ---
:1945 Author Organization [facility] Address [address] [place] [address] Care Team Providers Name Role Phone Ewa Alejandro M.D. Primary Care Provider [phone] Reason for Visit Outpatient (Routine) - Closed Specialty Diagnoses / Procedures Referred By Contact Refer red To Contact Nephrology and Rob Cantu [place] [facility] Hypertension [place] [address] [place] [address] Referral ID Status Reason Start Date Expiration Date Visits Requ ested Visits Authorized [id number] Closed 02/16/2019 02/16/2020 1 1 Encounter Details Date Type Department Care Team Description 03/23/2019 Office Visit Division of Nephrology Rob Cantu Hyp ertension Essential and Hypertension in [place] Primary (Primary Dx) [place], [place] [address] [facility] [address] [place] [address] [phone] Social History Tobacco Use Types Packs/Day Years [...] do you attend tenriism or Never 2021 temple services? Do you belong to any clubs or No 10/09/2021 organizations such as tenriism groups, unions, fraTaxify or athletic groups, or school groups? How [...] completed or the highest Martin, MEd, SALES MANAGEMENT INTERN, CAYDEN) degree you have received? Sex [...] Body Mass Index 29.92 11/09/2018 8:55 AM MDM SR documented in this encounter Progress Notes Rob [...] documented as of this encounter Care Teams Dobie Worker Relationship Specialty Start Date End Date Ewa Alejandro M.D. PCP - General 03/13/17 01/09/[address] [address] documented as of this encounter
--- OUTSIDE RECORDS SUMMARY | 2022-05-27 12:07 | XMS_ITS | Encounter Summary ---
:1945 Author Organization [facility] Address [address] [place] [address] Care Team Providers Name Role Phone Ewa Alejandro M.D. Primary Care Provider [phone] Reason for Visit Reason Onset Date Comments Medication Problem 01/25/2019 Encounter Details Date Type Department Care Team Description 01/25/2019 Clinical Communication Division of Lissy Cantu Problem Nephrology and Rob Barber M.D. Hypertension in [address] [place] [address] [address] [facility] [address] [phone] Social History Tobacco Use Types Packs/Day Years [...] do you attend amish or Never 2021 jewish services? Do you [...] this encounter Miscellaneous Notes Telephone Encounter - Abby Fierro R.N. - 01/25/2019 4:52 PM CDT SUBJECTIVE CHIEF COMPLAINT / REASON FOR CALL Medication Problem HISTORY OF PRESENT ILLNESS Mr. Costa has been taking his new Diltiazem 120mg since his visit with Dr. Cantu on 12/24/18. He notes that he was also restarted on his antidepressants (Lexapro & Ativan) about 3 days ago. He has been noting extreme fatigue recently, and notes that he will sleep up to 16 hours a day, and feelsthat he could possibly even sleep more. He has no energy or get up and go. His blood pressure has been running high, in the range of 170/90. ASSESSMENT / PLAN Disposition/Recommendation: We discussed that with multiple medication changes simultaneously, it can be hard to tell what is causing difficult symptoms. I advised that he remain on his Diltiazem, and Lexapro, but withhold his Ativan tonight, to see if he has a bit more energy tomorrow. He will continue on Diltiazem, and all other meds, until his return visit with Dr. Cantu tomorrow afternoon. Hiswife is at home with him, and if his somnolence would increase, and he would not be easily arousable, they will seek emergency medical attention. Education: patient/caller able to teach back Caller agreeable to plan of care: yes The following references were used: nursing clinical judgement Telephone Encounter - Shirley Vargas I. - 01/25/2019 1:22 PM CDT Pt feels the diltiazem is making him 'extremely' tired. All he does is eats and then sleeps again. Should he quit taking? documented in this encounter Plan of Treatment Not on filedocumented as of this encounter Visit Diagnoses Not on filedocumented in this encounter Additional Health Concerns Assessment Noted Time PHQ-9 Depression Total Score: 18 04/28/2018 11:27 AM C DT documented as of this encounter Care Teams Land Leasing Examiner Relationship Specialty Start Date End Date Ewa Alejandro M.D. PCP - General 03/13/17 01/09/[address] [place] [phone] documented as of this encounter
--- OUTSIDE RECORDS SUMMARY | 2022-05-27 12:07 | XMS_ITS | Encounter Summary ---
:1945 Author Organization [facility] Address [address] [place] [address] Care Team Providers Name Role Phone Ewa Alejandro M.D. 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 Do you [...] Comments Blood Pressure 152/81 11/24/2018 11:20 AM GENERAL FARM HAND Pulse 77 11/24/2018 11:20 AM GENERAL FARM HAND Temperature - - Respiratory Rate - - Oxygen Saturation - - Inhaled Oxygen Concentration - - Weight 108 kg (238 lb 15.7 oz) 11/24/2018 10:21 AM GENERAL FARM HAND Height - - Body Mass Index 30.83 11/09/2018 8:55 AM GENERAL FARM HAND documented in this encounter Consult Notes Rob [...] agreement with this plan. Rob Cantu M.D. RAL FARM HAND documented in this encounter Plan of Treatment [...] documented as of this encounter Care Teams Concrete Boom Pump Operator Relationship Specialty Start Date End Date Ewa Alejandro M.D. PCP - General 03/13/17 01/09/20 [address], [place] [phone] documented as of this encounter
--- OUTSIDE RECORDS SUMMARY | 2022-05-27 12:07 | XMS_ITS | Encounter Summary ---
:1945 Author Organization [facility] Address [address] [place] [address] Care Team Providers Name Role Phone Ewa Alejandro M.D. Primary Care Provider [phone] Reason for Referral MRI/CAT/PET Scan (Routine) - Closed Specialty Diagnoses / Procedures Referred By Contact Refer red To Contact Radiology Diagnoses Pancreatitis Chronic (HCC) Daisy Liu M.D. [facility] Procedures CT Abdomen without and with IV Contrast and Pelvis with IV Con CT Abdomen Pelvis without and with IV Contrast 200 [place], [place] [address] Referral ID Status Reason Start Date Expiration Date Visits Requ ested Visits Authorized [id number] Closed 06/24/2019 06/23/2020 1 1 Reason for Visit MRI/CAT/PET Scan (Routine) - Closed Specialty Diagnoses / Procedures Referred By Contact Refer red To Contact Radiology Diagnoses Pancreatitis Chronic (HCC) Daisy Liu M.D. [place] [facility] Procedures CT Abdomen without and with IV Contrast and Pelvis with IV Con CT Abdomen Pelvis without and with IV Contrast [address] [place], [place] [address] Referral ID Status Reason Start Date Expiration Date Visits Requ ested Visits Authorized [id number] Closed 06/24/2019 06/23/2020 1 1 Encounter Details Date Type Department Care Team Description 06/30/2019 Hospital Encounter Department of Daisy Liu Pancreat itis Chronic Radiology, Leanne Diaz M.D. ([facility]) Building, in [address] [place] [phone] 200 [facility] [phone] [place], [place] (Work) [phone] Social History Tobacco Use Types Packs/Day Years [...] do you attend islam or Never 2021 jainism services? Do you [...] have completed or the highest Martin, MEd, WAXER, CAYDEN) degree you have received? Sex Assigned [...] Body Mass Index 29.42 11/09/2018 8:55 AM DRIER FEEDER documented in this encounter Medications at Time [...] SYRINGE-NEEDLE,INSULIN, 0 0.5 ML (INSULIN SYRINGE MISC) [id number] Take 2 capsules by 240 capsule 3 [...] POCT ORDERABLES - DEVICE Performing Organization Address City/[facility] Phon e Number [facility] 200 [place] [address] (ABNORMAL) Creatinine, POCT (06/30/2019 3:47 PM CDT) athologist Signature eGFR-Black/Afri 68 >=60 06/30/2019 can Estonian, mL/min/BSA 3:54 PM CDT POCT Comment: ----ADDITIONAL [...] POCT ORDERABLES - DEVICE Performing Organization Address City/[facility] Phon e Number POC [facility] 200 [place], [place] [address] LABS documented in this encounter Visit Diagnoses [...] documented as of this encounter Care Teams Professional System Administrator Relationship Specialty Start Date End Date Ewa Alejandro M.D. PCP - General 03/13/17 01/09/20 [address] [place] [phone] documented as of this encounter
--- OUTSIDE RECORDS SUMMARY | 2022-05-27 12:07 | XMS_ITS | Encounter Summary ---
:1945 Author Organization [facility] Address [address] [place] [address] Care Team Providers Name Role Phone Ewa Alejandro M.D. Primary Care Provider [phone] Reason for Referral Outpatient (Routine) - Closed Specialty Diagnoses / Procedures Referred By Contact Refer red To Contact Diagnoses Personal History Of Malignant Neoplasm Of Bladder Prasanna Bernal M.D. [facility] Procedures Cystoscopy (specific provider) 2[address] [place] [address] Referral ID Status Reason Start Date Expiration Date Visits Requ ested Visits Authorized [id number] Closed 05/24/2019 05/23/2020 1 1 Reason for Visit Reason Comments Follow-up Encounter Details Date Type Department Care Team Description 05/24/2019 Procedure visit Department of Urology Prasanna Brenal, Cancer Bladder in [place] Personal History [place] [address] [place], [place] [phone] Social History Tobacco Use Types Packs/Day Years [...] do you attend faith or Never 2021 baptist services? Do you [...] have completed or the highest Martin, MEd, FIRE DISPATCHER, CAYDEN) degree you have received? Sex Assigned [...] Priority Date/Time Associated Diagnosis Comme nts CYTOLOGY NON-SWITCHBOX ASSEMBLER Routine 05/24/2019 9:09 AM Cancer Bladder Res ults for this CDT Personal History procedure a re in the results section. documented in this encounter Results Cytology Non-SWITCHBOX ASSEMBLER (Scheduled) (11/18/2019 9:01 AM PROOF PRESS OPERATOR) Component Value Ref Test Analysis Performed At [facility] gist Range Method Time Signature 11/19/2019 [facility] 10:23 AM PROOF PRESS OPERATOR Fixative 50% REAGENT 11/19/2019 [facility] ALCOHOL 10:23 AM PROOF PRESS OPERATOR Report Brady Goodrich MD 11/19/2019 [facility] electronically I verify that I have examined all relevant slides/ma terials 10:23 AM signed by for the specimen(s) and rendered or confirmed the diagnosis. PROOF PRESS OPERATOR Gross Description Received 80 11/19/2019 [facility] ml of cloudy 10:23 AM yellow PROOF PRESS OPERATOR alcohol fixed fluid. Collection VOIDED 11/19/2019 [facility] Procedure 10:23 AM PROOF PRESS OPERATOR Source A. Urine, 11/19/2019 [facility] Clean Catch, 10:23 AM voided PROOF PRESS OPERATOR Clinical History Z85.51 11/19/2019 [facility] 10:23 AM PROOF PRESS OPERATOR Interpretation A. 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 10:23 A M PROOF PRESS OPERATOR Specimen Anatomical Collection Method Collection Time Receive d Time (Source) Location / / Volume Laterality Varies (Urine, 11/18/2019 9:01 AM 020 7:13 Clean Catch) PROOF PRESS OPERATOR AM PROOF PRESS OPERATOR Narrative This result has an attachment that is no t available. Prasanna Bernal M.D. LAB SURG PATH ORDERABLES Performing Organization Address City/State/ZIP Code Phon e Number [facility]- [address] [place] [address] [facility] [place] [address] [facility] Cytology [address]25 [facility] Cytology Non-SWITCHBOX ASSEMBLER (05/24/2019 9:09 AM CDT) Component Value Ref Test Analysis Performed At [facility] gist Range Method Time Signature Gross [...] Code Phon e Number [facility] [address] [place] [address] CYTOLOGY documented in this encounter Visit Diagnoses Diagnosis Personal History Of Malignant Neoplasm O f Bladder documented in this encounter Additional Health Concerns Assessment Noted Time PHQ-9 Depression Total Score: 18 04/28/2018 11:27 AM C DT documented as of this encounter Care Teams Equine Science Instructor Relationship Specialty Start Date End Date Ewa Alejandro M.D. PCP - General 03/13/17 01/09/20 [address] [place] [phone] documented as of this encounter
--- OUTSIDE RECORDS SUMMARY | 2022-05-27 12:07 | XMS_ITS | Encounter Summary ---
:1945 Author Organization [facility] Address [address] [place] [address] Care Team Providers Name Role Phone Ewa Alejandro M.D. Primary Care Provider [phone] Reason for Referral MRI/CAT/PET Scan (Routine) - Closed Specialty Diagnoses / Procedures Referred By Contact Refer red To Contact Radiology Diagnoses Pancreatitis Chronic (HCC) Daisy Liu M.D. [facility] Procedures CT Abdomen without and with IV Contrast and Pelvis with IV Con CT Abdomen Pelvis without and with IV Contrast [address] [place] [phone] Referral ID Status Reason Start Date Expiration Date Visits Requ ested Visits Authorized [id number] Closed 06/24/2019 06/23/2020 1 1 Encounter Details Date Type Department Care Team Description 06/24/2019 Orders Only Division of Ran Eduardo Pancreatitis Chronic Gastroenterology in [address] [place] [address] (HCC) (Primary Dx) [place], [place] [address] [place] [phone] [place] [address] Social History Tobacco Use Types Packs/Day [...] do you attend adventist or Never 2021 voodoo services? Do you belong to any clubs or No 10/09/2021 organizations such as adventist groups, unions, [employer] or athletic groups, or school groups? How [...] have completed or the highest Martin, MEd, [employer] BOATMAN, CAYDEN) degree you have received? Sex Assigned [...] documented as of this encounter Care Teams Insulation Worker Apprentice Relationship Specialty Start Date End Date Ewa Alejanrdo M.D. PCP - General 03/13/17 01/09/20 [address] [place] [phone] documented as of this encounter
--- OUTSIDE RECORDS SUMMARY | 2022-05-27 12:07 | XMS_ITS | Encounter Summary ---
:1945 Author Organization [facility] Address [address] [place] [address] Care Team Providers Name Role Phone Ewa Alejandro M.D. Primary Care Provider Reason for Visit Reason Onset Date Comments Communication 12/22/2018 Comm Encounter Details Date Type Department Care Team Description 12/22/2018 Clinical Communication Department of Krzysztof Mitchell unication (Comm) [facility] [address] [place] [phone] Social History Tobacco Use Types Packs/Day Years [...] do you attend rastafari or Never 2021 episcopalian services? Do you [...] documented as of this encounter Care Teams Proof Technician Helper Relationship Specialty Start Date End Date Ewa Alejandro M.D. PCP - General 03/13/17 01/09/20 [address] [place] [phone] documented as of this encounter
--- OUTSIDE RECORDS SUMMARY | 2022-05-27 12:07 | XMS_ITS | Encounter Summary ---
:1945 Author Organization [facility] Address [address] [place] [address] Care Team Providers Name Role Phone Ewa Alejandro M.D. Primary Care Provider [phone] Reason for Visit Reason Comments Pancreas Medication Question Encounter Details Date Type Department Care Team Description 01/12/2019 Clinical Division of Parminder Pancreas; Communication Gastroenterology in [place], [place] Pato Question [address] [facility] [address] [place] [address] [place] [address] Social History Tobacco Use Types Packs/Day Years [...] do you attend sabianism or Never 2021 confucianism services? Do you [...] documented as of this encounter Care Teams Account Services Associate Relationship Specialty Start Date End Date Ewa Alejandro M.D. PCP - General 03/13/17 01/09/20 [address] [place] [phone] documented as of this encounter
--- OUTSIDE RECORDS SUMMARY | 2022-05-27 12:07 | XMS_ITS | Encounter Summary ---
:1945 Author Organization [facility] Address 200 [place] [address] Care Team Providers Name Role Phone Ewa Alejandro M.D. Primary Care Provider [phone] Reason for Referral Outpatient (Routine) - Closed Specialty Diagnoses / Procedures Referred By Contact Refer red To Contact Nephrology and oRb Cantu [place] [facility] M.DMauro 200 [place] [address] Referral ID Status Reason Start Date Expiration Date Visits Requ ested Visits Authorized [id number] Closed 02/09/2019 02/09/2020 1 1 Outpatient (Routine) - Closed Specialty Diagnoses / Procedures Referred By Contact Refer anna To Contact Sleep Medicine Diagnoses Hypertension Essential Primary Abnormal Oximetry Rob Cantu M.D. [facility] 200 [place] [address] Referral ID Status Reason Start Date Expiration Date Visits V isits Requested Authorized [id number] Closed Specialty 02/09/2019 02/09/2020 1 1 Services Required Reason for Visit Outpatient (Routine) - Closed Specialty Diagnoses / Procedures Referred By Contact Madelaine casitllo To Contact Nephrology and Rob Cantu [place] [facility] M.DMauro 200 [place] [address] Referral ID Status Reason Start Date Expiration Date Visits Requ ested Visits Authorized [id number] Closed 01/26/2019 01/26/2020 1 1 Encounter Details Date Type Department Care Team Description 02/09/2019 Office Visit Division of Nephrology Alondra Rob Hyp ertension Essential Primary (Primary Dx); and Hypertension in [place] Barber Abnormal Oximetry [place], [place] 200 [facility] 200 [place] [address] [phone] Social History Tobacco Use Types Packs/Day Years [...] do you attend yazidi or Never 2021 pentecostal services? Do you [...] Associated Diagnoses Order S [facility] Sleep Medicine - Outpatient Referral Routine Hypertension [...] as of this encounter Care Teams Optical Model Maker And Tester Relationship Specialty Start Date End Date Ewa Alejandro M.D. PCP - General 6/15/17 [address] [place] [address] documented as of this encounter
--- OUTSIDE RECORDS SUMMARY | 2022-05-27 12:07 | XMS_ITS | Encounter Summary ---
:1945 Author Organization [facility] Address [address] [place] [address] Care Team Providers Name Role Phone Ewa Alejandro M.D. Primary Care Provider [phone] Reason for Referral Outpatient (Routine) - Closed Specialty Diagnoses / Procedures Referred By Contact Refer red To Contact Endocrinology Diagnoses Diabetes Mellitus Type 2 With Diabetic Neuropathy (HCC) Keisha Lopez [facility] C.N.P., M.S.N. 200 [place] [address] Referral ID Status Reason Start Date Expiration Date Visits Requ ested Visits Authorized [id number] Closed 10/11/2019 10/10/2020 1 1 RETE BLOCK LAYER Reason for Visit Outpatient (Routine) - Closed Specialty Diagnoses / Referred By Referred To Cont act Procedures Contact Gastroenterology and Emil Zurita Rocheste r [facility] Hepatology Pat[place] 200 [place] [address] Referral ID Status Reason Start Date Expiration Date Visits Requ ested Visits Authorized [id number] Closed 09/15/2018 09/15/2019 1 1 Encounter Details Date Type Department Care Team Description 10/11/2019 Office Visit Division of Keisha Lopez C hronic (HCC) (Primary Dx); Gastroenterology in [place], PANTOGRAPHER, Diabetes Mellitus Type 2 With Diabetic Neuropathy (HCC); [place], [place] C.N.P., M.S.N. Change In Bowel Habit; [address] Exocrine Pancreatic Insufficiency (HCC); [place] [address] [place], [place] Loss Weight Abnormal; [phone] Stone Pancreatic Duct (HCC); [phone] Dilation Pancre atic Duct (HCC) (Work) Social [...] do you attend muslim or Never 2021 orthodox services? Do you [...] have completed or the highest Martin, MEd, CIVIL RIGHTS ATTORNEY, CAYDEN) degree you have received? Sex Assigned [...] states that he was exposed to Agent [place] in 1967 and subsequently developed asthma and [...] [place] [address] units of lipase per meal. He is [...] patient andcoordination of care as described above. RETE BLOCK LAYER documented in this encounter Plan of Treatment Scheduled Referrals Name Type Priority Associated Order Schedule Diagnoses Endocrinology - Outpatient Referral Routine Diabetes Mellitus Expected: Diabetes consult Type 2 With 10/11/2019 (clinic) Diabetic Neuropathy (Approxi mate), ([facility]) Expires: 10/11/2022 documented as of [...] documented as of this encounter Care Teams Trestleman Relationship Specialty Start Date End Date Ewa Alejandro M.D. PCP - General 03/13/17 01/09/20 [address], [place] [phone] documented as of this encounter
--- OUTSIDE RECORDS SUMMARY | 2022-05-27 12:07 | XMS_ITS | Encounter Summary ---
:1945 Author Organization [facility] Address [address] [place] [address] Care Team Providers Name Role Phone Ewa Alejandro M.D. Primary Care Provider [phone] Encounter Details Date Type Department Care Team [...] do you attend pentecostal or Never 2021 hinduism services? Do you [...] completed or the highest Martin, MEd, PHYSICAL TESTING SUPERVISOR, CAYDEN) degree you have received? Sex [...] documented as of this encounter Care Teams Linux Systems Engineer Relationship Specialty Start Date End Date Ewa Alejandro M.D. PCP - General 03/13/17 01/09/20 [address] [place] [address] documented as of this encounter
--- OUTSIDE RECORDS SUMMARY | 2022-05-27 12:07 | XMS_ITS | Encounter Summary ---
:1945 Author Organization [facility] Address [address] [place] [address] Care Team Providers Name Role Phone Ewa Alejandro M.D. Primary Care Provider [phone] Encounter Details Date Type Department Care Team Description 12/24/2018 Diagnostic Division of Nephrology Rob Cantu M.D. [address] [place] [address] Hypertensive Heart And and Hypertension in Meg Peralta Chronic Kidney Disease [place], [place] Without Heart Failure [address] [facility] And With Stage 2 (Mild) [place], [place] Chronic Kidney Disease [address] Social History Tobacco Use Types Packs/Day Years [...] do you attend shinto or Never 2021 judaism services? 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 PCP - General 03/13/17 01/09/20 [address], [place] [address] documented as of this encounter
--- OUTSIDE RECORDS SUMMARY | 2022-05-27 12:07 | XMS_ITS | Encounter Summary ---
:1945 Author Organization [facility] Address [address] [place] [address] Care Team Providers Name Role Phone Ewa Alejandro M.D. Primary Care Provider [phone] Reason for Visit Reason Onset Date Comments Medicare Annual Wellness Visit with RN 06/18/2019 Encounter Details Date Type Department Care Team Description 06/18/2019 Clinical Communication Department of Estelle Chau Annual Community Internal L, R.N. Wellness Visit with Medicine in [address] [address] [place], [place] [phone] (Work) [phone] Social History Tobacco Use Types Packs/Day Years [...] do you attend jewish or Never 2021 protestant services? Do you [...] have completed or the highest Martin, MEd, AFRICANA STUDIES PROFESSOR, CAYDEN) degree you have received? Sex [...] documented as of this encounter Care Teams Grocery Caddy Relationship Specialty Start Date End Date Ewa Alejandro M.D. PCP - General 03/13/17 01/09/[address] [phone] documented as of this encounter
--- OUTSIDE RECORDS SUMMARY | 2022-05-27 12:07 | XMS_ITS | Encounter Summary ---
:1945 Author Organization [facility] Address [address] [place] [address] Care Team Providers Name Role Phone Ewa Alejandro M.D. Primary Care Provider [phone] Encounter Details Date Type Department Care Team Description 07/19/2019 Clinical Communication Division of [facility] in Rhoda Stein [place], [place] [address] [facility] [address] [place] [phone] Social History Tobacco Use Types Packs/Day Years [...] you attend jehovah's witness or Never 2021 denominational services? Do you [...] have completed or the highest Martin, Sirena, CHORE WORKER, CAYDEN) degree you have received? Sex Assigned at Date Recorded Male 05/21/2018 2:34 PM CDT documented as of this encounter Plan of Treatment Not on filedocumented as of this encounter Visit Diagnoses Not on filedocumented in this encounter Additional Health Concerns Assessment Noted Time PHQ-9 Depression Total Score: 18 04/28/2018 11:27 AM C DT documented as of this encounter Care Teams Corrections Unit Supervisor Relationship Specialty Start Date End Date Ewa Alejandro M.D. PCP - General 03/13/17 01/09/[address] [phone] documented as of this encounter
--- OUTSIDE RECORDS SUMMARY | 2022-05-27 12:07 | XMS_ITS | Encounter Summary ---
:1945 Author Organization [facility] Address [address] [place] [address] Care Team Providers Name Role Phone Ewa Alejandro M.D. Primary Care Provider Encounter Details Date Type Department Care Team Description 11/23/2018 Clinical Communication Department of [facility] in [place], [place] Pat[place] [address] [place] [address] [place], [place] [phone] [address] Social History Tobacco Use Types Packs/Day [...] do you attend temple or Never 2021 alevism services? Do you [...] documented as of this encounter Care Teams License Distributor Relationship Specialty Start Date End Date Ewa Alejandro M.D. PCP - General 03/13/17 01/09/20 [address] [address] documented as of this encounter
--- OUTSIDE RECORDS SUMMARY | 2022-05-27 12:07 | XMS_ITS | Encounter Summary ---
:1945 Author Organization [facility] Address [address] [place] [address] Care Team Providers Name Role Phone Ewa Alejandro M.D. Primary Care Provider [phone] Encounter Details Date Type Department Care Team Description 05/17/2019 Hospital Encounter Department of [facility] Laboratory Medicine Pato Mims Personal History in [address], [place] [phone] Social History Tobacco Use [...] do you attend anglican or Never 2021 episcopal services? Do you [...] have completed or the highest Martin, MEd, ESTATE CONSERVATOR, CAYDEN) degree you have received? Sex Assigned [...] SYRINGE-NEEDLE,INSULIN, 0 0.5 ML (INSULIN SYRINGE MISC) [id number] Take 2 capsules by 240 capsule 3 [...] 05/01/2020 reader (FREESTYLE ILEANA 14 DAY READER) [facility] flash glucose sensor Use as directed. [...] Priority Date/Time Associated Diagnosis Comme nts CYTOLOGY NON-CREDIT COLLECTION ASSOCIATE Routine 05/17/2019 8:53 AM Cancer Bladder Res ults for this (SCHEDULED) CDT Personal History procedure a re in the results section. documented in this encounter Results (ABNORMAL) Cytology Non-CREDIT COLLECTION ASSOCIATE (Scheduled) (05/17/2019 8:53 AM CDT) Component Value Ref Test Analysis Performed At [facility] gist Range Method Time Signature Gross Description [...] [facility] [address] [place] [address] CYTOLOGY documented in this encounter Visit Diagnoses Diagnosis Personal History Of Malignant Neoplasm O f Bladder documented in this encounter Additional Health Concerns Assessment Noted Time PHQ-9 Depression Total Score: 18 04/28/2018 11:27 AM C DT documented as of this encounter Care Teams Magazine Feeder Relationship Specialty Start Date End Date Ewa Alejandro M.D. PCP - General 03/13/17 01/09/20 [address] [phone] documented as of this encounter
--- OUTSIDE RECORDS SUMMARY | 2022-05-27 12:07 | XMS_ITS | Encounter Summary ---
:1945 Author Organization [facility] Address [address] [place] [address] Care Team Providers Name Role Phone Ewa Alejandro M.D. Primary Care Provider [phone] Reason for Referral Outpatient (Routine) - Closed Specialty Diagnoses / Procedures Referred By Contact Refer anna To Contact Nephrology and Rob Cantu [place] [facility] Pato [address] [place] [address] Referral ID Status Reason Start Date Expiration Date Visits Requ ested Visits Authorized [id number] Closed 02/16/2019 02/16/2020 1 1 Reason for Visit Outpatient (Routine) - Closed Specialty Diagnoses / Procedures Referred By Contact Madelaine castillo To Contact Nephrology and Rob Cantu [place] [facility] Neto.DMauro [address] [place] [address] Referral ID Status Reason Start Date Expiration Date Visits Requ ested Visits Authorized [id number] Closed 02/09/2019 02/09/2020 1 1 Encounter Details Date Type Department Care Team Description 02/16/2019 Office Visit Division of Nephrology Rob Cantu Hyp ertension Essential Primary (Primary Dx); and Hypertension in Pato Barber Abnormal Oximetry [place], [place] [address] [facility] [address] [place] [address] [phone] Social History Tobacco Use Types Packs/Day Years [...] do you attend zoroastrian or Never 2021 latter-day services? Do you [...] documented as of this encounter Care Teams Refining Equipment Operator Relationship Specialty Start Date End Date Ewa Alejandro M.D. PCP - General 03/13/17 01/09/[address] [phone] documented as of this encounter
--- OUTSIDE RECORDS SUMMARY | 2022-05-27 12:07 | XMS_ITS | Encounter Summary ---
:1945 Author Organization [facility] Address [address] [place] [address] Care Team Providers Name Role Phone Ewa Alejandro M.D. Primary Care Provider [phone] Reason for Referral MRI/CAT/PET Scan (Routine) - Closed Specialty Diagnoses / Procedures Referred By Contact Refer red To Contact Radiology Diagnoses Pancreatitis Chronic (HCC) Emil Zurita M.D. [facility] Procedures CT Abdomen Pelvis with IV Contrast SC CT ABD&PELVIS W CNTRST HC CT ABD&PELVIS W CNTRST SC CT ABD&PELVIS W CNTRST [address] [place], [place] [address] Referral ID Status Reason Start Date Expiration Date Visits Requ ested Visits Authorized [id number] Closed 09/15/2018 09/15/2019 1 1 UNTING CLERKS SUPERVISOR Reason for Visit Outpatient (Routine) - Closed Specialty Diagnoses / Procedures Referred By Contact Refer red To Contact Radiology Diagnoses Pancreatitis Chronic (HCC) [facility] [address] Em[address]D. [address] Alise [address] ABDOMEN PELVIS WITH IV CONTRAST RAD CT ABDOMEN PELVIS [address] [facility] [address] [place] [address] [place] [address] Fax: Referral ID Status Reason Start Date Expiration Date Visits Requ ested Visits Authorized [id number] Closed 10/11/2019 10/10/2020 1 1 Encounter Details Date Type Department Care Team Description 10/11/2019 Hospital Encounter Department of Camilla Zurita Chronic Radiology, Agustín Stein M.D. ([facility] Building, in [address] [place] [address] [place] [address] [place], [place] [phone] (Work) [phone] Social History Tobacco Use Types Packs/Day Years [...] do you attend yazidism or Never 2021 pentecostalism services? Do you [...] or the highest Martin, MEd, DIRECTOR OF FIRST IMPRESSIONS, CAYDEN) degree you have received? Sex Assigned [...] 188 cm (6' 2) 10/11/2019 10:27 AM ACCOUNTING CLERKS SUPERVISOR Body Mass Index - - documented in [...] SYRINGE-NEEDLE,INSULIN, 0 0.5 ML (INSULIN SYRINGE MISC) [id number] Take 2 capsules by 240 capsule 3 [...] 05/01/2020 reader (FREESTYLE ILEANA 14 DAY READER) [facility] flash glucose sensor Use as directed. 6 [...] context of radiology care priorto contrast/medication administration. UNTING CLERKS SUPERVISOR documented in this encounter Plan of [...] this WITH IV CONTRAST (most inpatients AM ACCOUNTING CLERKS SUPERVISOR Chronic (HCC) proced ure are in and all the results outpatients) section. CREATININE, POCT, Routine 10/11/2019 10:40 Result s for this B AM ACCOUNTING CLERKS SUPERVISOR procedure are i n the results section. CREATININE, POCT, Routine 10/11/2019 10:40 Result s for this B AM ACCOUNTING CLERKS SUPERVISOR procedure are i n the results section. documented in this encounter Results CT Abdomen Pelvis with IV Contrast (10/11/2019 11:05 AM ACCOUNTING CLERKS SUPERVISOR) Anatomical Region Laterality Modality Abdomen, Pelvis, Abdominal RST LOS, N/A Comp uted Tomography, Computed Abdominal ARZ LOS, Abdominal FLA LOS Logan ography Specimen (Source) Anatomical Collection Method Collection Time Re ceived Time Location / / Volume Laterality 10/11/2019 1:13 PM ACCOUNTING CLERKS SUPERVISOR Impressions 10/11/2019 1:24 PM ACCOUNTING CLERKS SUPERVISOR No significant change from the most recent prior study; chronic changes of pancreatitis. Narrative 10/11/2019 1:24 PM ACCOUNTING CLERKS SUPERVISOR EXAM: ??CT ABDOMEN PELVIS WITH IV CONTRAST [...] CT PROCEDURES Creatinine, POCT (10/11/2019 10:40 AM ACCOUNTING CLERKS SUPERVISOR) athologist Signature Creatinine, 1.2 0.7 - 1.4 10/11/2019 PCDT POCT, B mg/dL 10:44 AM ACCOUNTING CLERKS SUPERVISOR Comment: ----ADDITIONAL INFORMATION---- Performed at the Point of Care Specimen Anatomical Collection Method Collection Time Receive d Time (Source) Location / / Volume Laterality Blood 10/11/2019 10:40 10/11/2019 AM ACCOUNTING CLERKS SUPERVISOR 10:44 AM ACCOUNTING CLERKS SUPERVISOR Unknown Provider LAB POCT ORDERABLES - DEVICE Performing Organization Address City/State/ZIP Code Phon e Number POC HURON PERFORMING [address] [place] [address] LABS PCDT [facility] - [place], [place] [address] [place] [address] (ABNORMAL) Creatinine, POCT (10/11/2019 10:40 AM ACCOUNTING CLERKS SUPERVISOR) P athologist Signature eGFR-Black/Afri 67 >=60 10/11/2019 PCDT can Russian, mL/min/BSA 10:44 AM ACCOUNTING CLERKS SUPERVISOR POCT Comment: ----ADDITIONAL INFORMATION---- Estimated GFR calculated using the 2009 CKD_EPI creatinine equation. eGFR Non-Black/ 58 (L) >=60 mL/min/BSA 10/11/2019 10:44 AM ACCOUNTING CLERKS SUPERVISOR PCDT Russian, POCT Comment: ----ADDITIONAL INFORMATION---- Estimated GFR calculated using the 2009 CKD_EPI creatinine equation. Specimen Anatomical Collection Method Collection Time Receive d Time (Source) Location / / Volume Laterality Blood 10/11/2019 10:40 10/11/2019 AM ACCOUNTING CLERKS SUPERVISOR 10:44 AM ACCOUNTING CLERKS SUPERVISOR Unknown Provider LAB POCT ORDERABLES - DEVICE Performing Organization Address City/State/ZIP Code Phon e Number POC HURON PERFORMING [address] [place] [address] LABS PCDT [facility] [place] [address] [place] POC [address] documented in this encounter Visit Diagnoses Diagnosis Pancreatitis Chronic (HCC) documented in this encounter Administered Medications Inactive Administered Medications - up to 3 most recent administrations Medication Order MAR Action Action Date Dose Rate Site iohexol 300 mg iodine/mL solution Given 10/11/2019 10:56 AM ACCOUNTING CLERKS SUPERVISOR 140 mL 1-200 mL (OMNIPAQUE) 1-200 mL, intravenous, Once in imaging, contrast, Starting on Fri10/11/19 at 1022, For 1 dose, Imaging Protocol Orders, Dose per Radiant Medication Guidelines sodium chloride (PF) 0.9 % injection 1-1 00 mL Given 10/11/2019 10:56 AM ACCOUNTING CLERKS SUPERVISOR 50 mL 1-100 mL, intravenous, Once, On Fri10/11/19 at 1030, For 1 dose, Imaging Protocol Orders documented in this encounter Additional Health Concerns Assessment Noted Time PHQ-9 Depression Total Score: 18 04/28/2018 11:27 AM C DT documented as of this encounter Care Teams Network Operations Specialist Relationship Specialty Start Date End Date Ewa Alejandro M.D. PCP - General 03/13/17 01/09/20 [address] [place] [address] documented as of this encounter
--- OUTSIDE RECORDS SUMMARY | 2022-05-27 12:07 | XMS_ITS | Encounter Summary ---
:1945 Author Organization [facility] Address [address] [place] [address] Care Team Providers Name Role Phone Ewa Alejandro M.D. Primary Care Provider [phone] Encounter Details Date Type Department Care Team Description 02/18/2019 Clinical Communication Division of Nicholas Triana, Endocrinology in [place], [place] [address] [facility] [address] [place] [address] [phone] Social History Tobacco Use Types Packs/Day Years [...] do you attend gnosticism or Never 2021 muslim services? Do you [...] documented as of this encounter Care Teams Derivatives Trader Relationship Specialty Start Date End Date Ewa Alejandro M.D. PCP - General 03/13/17 01/09/[address] [phone] documented as of this encounter
--- OUTSIDE RECORDS SUMMARY | 2022-05-27 12:07 | XMS_ITS | Encounter Summary ---
:1945 Author Organization [facility] Address [address] [place] [address] Care Team Providers Name Role Phone Ewa Alejandro M.D. Primary Care Provider [phone] Reason for Visit Outpatient (Routine) - Closed Specialty Diagnoses / Procedures Referred By Contact Refer red To Contact Sleep Medicine Diagnoses Hypertension Essential Primary Abnormal Oximetry Rob Cantu M.D. [facility] [address] [place] [address] Referral ID Status Reason Start Date Expiration Date Visits V isits Requested Authorized [id number] Closed Specialty 02/09/2019 02/09/2020 1 1 Services Required Encounter Details Date Type Department Care Team Description 02/12/2019 Comprehensive Visit [facility] Americo Padilla rtension Essential Primary; Medicine in Rachael Arias, Abnormal Oximet [facility] [place] [address] [place] [address] [place] [address] [phone] Social History Tobacco Use Types Packs/Day Years [...] do you attend congregational or Never 2021 uatsdin services? Do you [...] of obstructive sleep ap[facility] at [facility] 6 years ago. 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 PCP - General 03/13/17 01/09/[address] [address] documented as of this encounter
--- OUTSIDE RECORDS SUMMARY | 2022-05-27 12:07 | XMS_ITS | Encounter Summary ---
:1945 Author Organization [facility] Address [address] [place] [address] Care Team Providers Name Role Phone Ewa Alejandro M.D. Primary Care Provider [phone] Encounter Details Date Type Department Care Team Description 01/21/2019 Clinical Communication Department of [facility], [facility], LMauroPMauroNMa[facility], [facility], [address] [place], [place] 300 [facility] [address] [place], [place] [phone] [address] (Work) [phone] Social History Tobacco Use Types Packs/Day Years [...] you attend oriental orthodox or Never 2021 cheondoism services? Do you [...] changes that virgilios been going through lately- assisted- that may have started his anxiety and sleeping issues lately.... documented in this encounter Plan of Treatment Not on filedocumented as of this encounter Visit Diagnoses Not on filedocumented in this encounter Additional Health Concerns Assessment Noted Time PHQ-9 Depression Total Score: 18 04/28/2018 11:27 AM C DT documented as of this encounter Care Teams Patient Financial Counselor Relationship Specialty Start Date End Date Ewa Alejandro M.D. PCP - General 03/13/17 01/09/20 [address] [phone] documented as of this encounter
--- OUTSIDE RECORDS SUMMARY | 2022-05-27 12:07 | XMS_ITS | Encounter Summary ---
:1945 Author Organization [facility] Address [address] [place] [address] Care Team Providers Name Role Phone Ewa Alejandro M.D. Primary Care Provider Encounter Details Date Type Department Care Team Description 01/21/2019 Orders Only Department [facility] M[facility] [address] [place] [phone] (Wo rk) Social History Tobacco Use Types [...] do you attend quaker or Never 2021 druze services? Do you [...] documented as of this encounter Care Teams Subscription Clerk Relationship Specialty Start Date End Date Ewa Alejandro M.D. PCP - General 03/13/17 01/09/[address] [phone] documented as of this encounter
--- OUTSIDE RECORDS SUMMARY | 2022-05-27 12:07 | XMS_ITS | Encounter Summary ---
:1945 Author Organization [facility] Address [address] [place] [address] Care Team Providers Name Role Phone Ewa Alejandro M.D. Primary Care Provider [phone] Encounter Details Date Type Department Care Team Description 10/11/2019 Hospital Encounter Department of Parminder, Pancreat itis Chronic Laboratory Medicine Rhoda Stein (HCC) and Pathology, [address] [place] [address] in [place], [place] [address] [place] [address] [place], [place] (Work) [phone] Social History Tobacco Use Types Packs/Day Years [...] do you attend advent or Never 2021 amish services? Do you [...] have completed or the highest Martin, MEd, BOOTMAKER HAND, [place]) degree you have received? Sex [...] SYRINGE-NEEDLE,INSULIN, 0 0.5 ML (INSULIN SYRINGE MISC) gfquvd-eqpblnig-dnjdpmj Take 2 capsules by 240 capsule 3 [...] 05/01/2020 reader (FREESTYLE ILEANA 14 DAY READER) [facility] flash glucose sensor Use as directed. 6 [...] Chronic Results for this VITAMIN E, S FELL CUTTER ([facility]) procedure are i n the results section. 25-HYDROXYVITAMIN Routine 10/11/2019 9:52 AM Pancreatitis Sales Supervisor hilary Results for this D2 AND D3, S FELL CUTTER ([facility]) procedure are i n the results section. HEMOGLOBIN A1C, B Routine 10/11/2019 9:52 AM Pancreatitis Sales Supervisor hilary Results for this FELL CUTTER ([facility]) procedure are i n the results section. GLUCOSE, FASTING, Routine 10/11/2019 9:52 AM Pancreatitis Sales Supervisor hilary Results for this S/P FELL CUTTER ([facility]) procedure are i n the results section. CREATININE WITH Routine 10/11/2019 9:52 AM Pancreatitis Chroni c Results for this EGFR, S/P FELL CUTTER ([facility]) procedure are i n the results section. documented in this encounter Results (ABNORMAL) 25-Hydroxyvitamin D2 and D3 (10/11/2019 9:52 AM FELL CUTTER) athologist Signature 25-Hydroxy D2 <4.0 ng/mL 10/12/2019 [facility] 9:47 PM FELL CUTTER 25-Hydroxy D3 15 ng/mL 10/12/2019 [facility] 9:47 PM FELL CUTTER 25-Hydroxy D 15 (L) ng/mL 10/12/2019 [facility] Total 9:47 PM FELL CUTTER Comment: Interpretation: 10-19 ng/mL (mild to mod erate deficiency) ----REFERENCE VALUE---- 25-HYDROXY D TOTAL (D2+D3) Optimum level s in the healthy population are 20-50, patients with bone disease may benefit from higher levels within this r stan. ----ADDITIONAL INFORMATION---- This test was developed and its performa nce characteristics determined by [facility] in a manner consistent with CLIA requirements. This test has not been cleared or approved by the [place] d and Drug Administration. Specimen Anatomical Collection Method Collection Time Receive d Time (Source) Location / / Volume Laterality Blood (Blood, 10/11/2019 9:52 AM 10/11/19 1:30 Venous) FELL CUTTER PM FELL CUTTER Emil Zurita M.D. LAB BLOOD ADD-ON Performing Organization Address City/[facility] Phon e Number [facility] [address] AYALA [place] [address] SUPPORT [facility] [place] [address] Laboratory Medicine and Pathology [address] [place] [address] Dr. AYALA Vitamin A and Vitamin E (10/11/2019 9:52 AM FELL CUTTER) P athologist Signature Vitamin A 53.5 32.5 - 78.0 10/12/2019 [facility] mcg/dL 10:37 PM FELL CUTTER Comment: ----ADDITIONAL INFORMATION---- This test was developed and its performa nce characteristics determined by [facility] in a manner consistent with CLIA requirements. This test has not been cleared or approved by the [place]. [place] d and Drug Administration. A-Tocopherol, Vitamin E 10.9 5.5 - 17.0 mg/L 10/12/2019 1:35 PM FELL CUTTER [facility] Specimen Anatomical Collection Method Collection Time Receive d Time (Source) Location / / Volume Laterality Blood (Blood, 10/11/2019 9:52 AM 10/11/19 4:31 Venous) FELL CUTTER PM FELL CUTTER Emil Zurita M.D. LAB BLOOD NON ADD-ON Performing Organization Address City/[facility] Phon e Number [facility] [address] [place] [address] Dr AYALA [place], [place] [address] SUPPORT CENTER [facility] [place] [address] Laboratory Medicine and Pathology [address] [place] [address] Dr. AYALA (ABNORMAL) Glucose, Fasting (10/11/2019 9:52 AM FELL CUTTER) P athologist Signature Glucose, P 149 (H) 70 - 100 10/11/2019 DTL mg/dL 11:01 AM FELL CUTTER Last Intake 17 hr 10/11/2019 DTL 10:14 AM FELL CUTTER Specimen Anatomical Collection Method Collection Time Receive d Time (Source) Location / / Volume Laterality Blood (Blood, 10/11/2019 9:52 AM 10/11/19 20 Venous) FELL CUTTER 10:14 AM FELL CUTTER Emil Zurita M.D. LAB BLOOD NON ADD-ON Performing Organization Address City/[facility]/ZIP Code Phon e Number [facility] - [address] [place], [place] [address] [facility] [place] [address] [address] (ABNORMAL) Hemoglobin A1c (10/11/2019 9:52 AM FELL CUTTER) Analysis Performed At Patho logist Time Signature Hemoglobin A1c, 10.2 (H) 4.0 - 5.6 10/11/2019 DTL B % 12:15 PM FELL CUTTER Comment: Hemoglobin A1c values greater than or eq ual to 6.5 percent are diagnostic for diabetes mellitus. ?? Diagnosis should be confirmed by repeat testing. ??In diabet ic patients, HbA1c goals should be discussed with healthcar e provider. Specimen Anatomical Collection Method Collection Time Receive d Time (Source) Location / / Volume Laterality Blood (Blood, 10/11/2019 9:52 AM 10/11/19 20 Venous) FELL CUTTER 10:14 AM FELL CUTTER Emil Zurita M.D. LAB BLOOD ADD-ON Performing Organization Address City/State/ZIP Code Phon e Number [facility] - 200 [place], [place] [address] [facility] [place] [address] [address] (ABNORMAL) Creatinine with Estimated GFR (10/11/2019 9:52 AM FELL CUTTER) P athologist Signature Creatinine 1.26 0.74 - 10/11/2019 DTL 1.35 mg/dL 10:54 AM FELL CUTTER eGFR-Non 55 (L) >=60 10/11/2019 DTL Black/ mL/min/BSA 10:54 AM FELL CUTTER Cypriot Comment: ----ADDITIONAL INFORMATION---- Estimated GFR calculated using the 2009 CKD_EPI creatinine equation. eGFR-Black/ 64 >=60 mL/min/BSA 2019 10:54 AM FELL CUTTER DTL Comment: ----ADDITIONAL INFORMATION---- Estimated GFR calculated using the 2009 CKD_EPI creatinine equation. Specimen Anatomical Collection Method Collection Time Receive d Time (Source) Location / / Volume Laterality Blood (Blood, 10/11/2019 9:52 AM 10/11/19 20 Venous) FELL CUTTER 10:14 AM FELL CUTTER Emil Zurita M.D. LAB BLOOD ADD-ON Performing Organization Address City/State/ZIP Code Phon e Number [facility] - [address] [place], [place] [address] [facility] [place] [address] Laboratories-[facility] [address] documented in this encounter Visit Diagnoses Diagnosis Pancreatitis Chronic (HCC) documented in this encounter Additional Health Concerns Assessment Noted Time PHQ-9 Depression Total Score: 18 04/28/2018 11:27 AM C DT documented as of this encounter Care Teams Senior Research Executive Relationship Specialty Start Date End Date Ewa Alejandro M.D. PCP - General 03/13/17 01/09/20 [address] [place] [phone] documented as of this encounter
--- OUTSIDE RECORDS SUMMARY | 2022-05-27 12:07 | XMS_ITS | Encounter Summary ---
:1945 Author Organization [facility] Address [address] [place] [address] Care Team Providers Name Role Phone Ewa Alejandro M.D. Primary Care Provider [phone] Encounter Details Date Type Department Care Team Description 02/08/2019 Diagnostic Division of Pulmonary Rob Cantu rtension Essential Primary; Medicine in Sunil Hale M.D. Sleep Apnea [place] [address] [facility] [address] [place] [phone] [phone] Social History Tobacco Use Types Packs/Day Years [...] do you attend adventism or Never 2021 jainism services? Do you [...] Organization Address City/State/ZIP Code Phon e Number [facility] EAP documented in this encounter Visit Diagnoses Diagnosis Hypertension Essential Primary Sleep Apnea documented in this encounter Additional Health Concerns Assessment Noted Time PHQ-9 Depression Total Score: 18 04/28/2018 11:27 AM C DT documented as of this encounter Care Teams Soil Engineer Relationship Specialty Start Date End Date Ewa Alejandro M.D. PCP - General 03/13/17 01/09/20 [address] [place] [phone] documented as of this encounter
--- OUTSIDE RECORDS SUMMARY | 2022-05-27 12:08 | XMS_ITS | Encounter Summary ---
:1945 Author Organization [facility] Address [address] [place] [address] Care Team Providers Name Role Phone Ewa Alejandro M.D. Primary Care Provider [phone] Encounter Details Date Type Department Care Team Description 09/30/2018 Clinical Support Department of Nicholas Triana M .D. [address] [place] [phone] Pancreatitis Chronic Nutrition in Luciana Sterling R.N., [facility] [address] [place] [phone] ([facility]) [place], [place] [address] [place] [phone] Social History Tobacco Use Types Packs/Day Years [...] do you attend mandaen or Never 2021 mandaen services? Do you [...] Plan 1. Pancreatitis Chronic (HCC) Nutrition - software educator visit (clinic) Patient arrives to diabetes [...] Time spent with patient (minutes): 90 Minutes ING SITTER documented in this encounter Miscellaneous Notes Addendum Note - Luciana Sterling R.N. - 09/30/2018 11:00 AM EVENING SITTER Addended by: LUCIANA STERLING on: 09/30/2018 01:11 PM Modules accepted: Orders ING SITTER Addendum Note - Luciana Sterling R.N. - 09/30/2018 11:00 AM EVENING SITTER Addended by: LUCIANA STERLING on: 09/30/2018 02:02 PM Modules accepted: Orders ING SITTER documented in this encounter Plan of Treatment Not on filedocumented as of this encounter Visit Diagnoses Diagnosis Pancreatitis Chronic (HCC) documented in this encounter Additional Health Concerns Assessment Noted Time PHQ-9 Depression Total Score: 18 04/28/2018 11:27 AM C DT documented as of this encounter Care Teams Cutter Machine Relationship Specialty Start Date End Date Ewa Alejandro M.D. PCP - General 03/13/17 01/09/20 [address] [address] documented as of this encounter
--- OUTSIDE RECORDS SUMMARY | 2022-05-27 12:08 | XMS_ITS | Encounter Summary ---
:1945 Author Organization [facility] Address [address] [place] [address] Care Team Providers Name Role Phone Ewa Alejandro M.D. Primary Care Provider [phone] Encounter Details Date Type Department Care Team Description 10/07/2018 Clinical Communication Division of Nicholas Triana, Endocrinology in [place], [place] [address] [facility] [address] [place] [address] [phone] Social History Tobacco Use Types Packs/Day Years [...] as of this encounter Care Teams Social Services Relationship Specialty Start Date End Date Ewa Alejandro M.D. PCP - General 03/13/17 01/09/20 [address], [place] [address] documented as of this encounter
--- OUTSIDE RECORDS SUMMARY | 2022-05-27 12:08 | XMS_ITS | Encounter Summary ---
:1945 Author Organization [facility] Address [address] [place] [address] Care Team Providers Name Role Phone Ewa Alejandro M.D. 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 [place] Procedures CT Abdomen Pelvis with IV Contrast CT Abdomen Pelvis without and with IV Contrast OK CT ABD&PELVIS WO/W CNTRST HC CT ABD&PELVIS WO/W CNTRST OK CT ABD&PELVIS WO/W CNTRST OK CT ABD&PELVIS W CNTRST HC CT ABD&PELVIS W CNTRST [address] [place] [address] ABD&[place] [address] Referral ID Status Reason Start Date Expiration Date Visits Requ ested Visits Authorized [id number] Closed 07/10/2018 07/10/2019 1 1 LUTION MANAGER Reason for Visit MRI/CAT/PET Scan (Routine) - Closed Specialty Diagnoses / Procedures Referred By Contact Refer red To Contact Radiology Diagnoses Diarrhea Dilation Pancreatic Duct Stone Pancreatic Duct Pancreatitis Chronic (HCC) Emil Zurita M.D. [place] Procedures CT Abdomen Pelvis with IV Contrast CT Abdomen Pelvis without and with IV Contrast OK CT ABD&PELVIS WO/W CNTRST HC CT ABD&PELVIS WO/W CNTRST OK CT ABD&PELVIS WO/W CNTRST OK CT ABD&PELVIS W CNTRST HC CT ABD&PELVIS W CNTRST [address] [facility] [place] CT ABD&[place] [address] Referral ID Status Reason Start Date Expiration Date Visits Requ ested Visits Authorized [id number] Closed 07/10/2018 07/10/2019 1 1 Encounter Details Date Type Department Care Team Description 08/19/2018 Hospital Encounter Department of ParminderJamaal ; Radiology, Leanne Stein M.D. Dilation Pancreatic Duct (HCC); Building, in [address] [place] [address] Stone Pancreatic Duct (HCC); [place], [place] Pancreatitis Chronic (HCC) [address] [place] [phone] [place], [place] [phone] (Work) [phone] Social History Tobacco Use Types Packs/Day Years [...] do you attend baptist or Never 2021 jew services? Do you [...] 102 kg (225 lb) 08/19/2018 12:10 PM RESOLUTION MANAGER Height 188 cm (6' 2) 08/19/2018 12:10 PM RESOLUTION MANAGER Body Mass Index 28.89 08/19/2018 12:10 PM RESOLUTION MANAGER documented in this encounter Medications at Time [...] KwikPen) 100 unit/mL for: Diabetes (70-30) injection baekhu-illuhiqu-fwflptd Take 2 capsules by 120 capsule 0 [...] 12:07 PM CST Creatinine 1.0, GFR >30 LUTION MANAGER documented in this encounter Plan of Treatment Not on filedocumented as of this encounter Procedures Procedure Name Priority Date/Time Associated Comments Diagnosis CT ABDOMEN PELVIS RAD - Routine 08/19/2018 12:43 Diarrhea Results for this WITH IV CONTRAST (most inpatients PM RESOLUTION MANAGER Dilation procedu re are in and all Pancreatic Duct the results outpatients) (HCC) section. Stone Pancreatic Duct (HCC) Pancreatitis Chronic (HCC) CREATININE, POCT, Routine 08/19/2018 12:06 Result s for this B PM RESOLUTION MANAGER procedure are i n the results section. CREATININE, POCT, Routine 08/19/2018 12:06 Result s for this B PM RESOLUTION MANAGER procedure are i n the results section. documented in this encounter Results CT Abdomen Pelvis with IV Contrast (08/19/2018 12:43 PM RESOLUTION MANAGER) Anatomical Region Laterality Modality Abdomen, Pelvis, Abdominal RST LOS, Abdominal ARZ LOS, N/A Computed Tomography Abdominal FLA LOS Specimen (Source) Anatomical Collection Method Collection Time Re ceived Time Location / / Volume Laterality 08/19/2018 1:29 PM RESOLUTION MANAGER Impressions 08/19/2018 1:48 PM RESOLUTION MANAGER IMPRESSION: ?? 1. Chronic calcific pancreatitis. Narrative 08/19/2018 1:48 PM RESOLUTION MANAGER EXAM: ??CT ABDOMEN PELVIS WITH IV CONTRAST [...] in course and calibe r. There is mwrw-kq-xjgxrlos arthrosclerotic calcification of the aor ta and [...] in course and calibe r. There is gwob-th-oxydlfcg arthrosclerotic calcification of the aor ta and branch vessels. There is soft tissue stranding within th e ventral abdominal subcutaneous tissue, unchanged. No suspicious osteolytic or osteoblastic lesions. 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 Chronic calcific pancreatitis. Emil Zurita M.D. IMG CT PROCEDURES Creatinine, POCT (08/19/2018 12:06 PM RESOLUTION MANAGER) P athologist Signature Creatinine, 1.0 0.7 - 1.4 08/19/2018 POC [place] POCT, B mg/dL 12:16 PM RESOLUTION MANAGER PERFORMING LABS Comment: ----ADDITIONAL INFORMATION---- Performed at the Point of Care Specimen Anatomical Collection Method Collection Time Receive d Time (Source) Location / / Volume Laterality Blood 08/19/2018 12:06 08/19/2018 PM RESOLUTION MANAGER 12:16 PM RESOLUTION MANAGER Unknown Provider LAB POCT ORDERABLES - DEVICE Performing Organization Address [facility] Phon e Number [facility] PERFORMING LABS 200 [place] [address] Creatinine, POCT (08/19/2018 12:06 PM RESOLUTION MANAGER) P athologist Signature eGFR-Black/Afr 85 >=60 08/19/2018 POC RST ican Indian, mL/min/BSA 12:17 PM RESOLUTION MANAGER ORIENTAL ORTHODOX POCT OUTPATIENT LABS Comment: ----ADDITIONAL INFORMATION---- Estimated GFR calculated using the 2009 CKD_EPI creatinine equation. eGFR Non-Black/ 73 >=60 mL/min/BSA 08/19/2018 12:17 POC RST ORIENTAL ORTHODOX Indian, POCT PM RESOLUTION MANAGER OUTPATIENT LABS Comment: ----ADDITIONAL INFORMATION---- Estimated GFR calculated using the 2009 CKD_EPI creatinine equation. Specimen Anatomical Collection Method Collection Time Receive d Time (Source) Location / / Volume Laterality Blood 08/19/2018 12:06 08/19/2018 PM RESOLUTION MANAGER 12:16 PM RESOLUTION MANAGER Unknown Provider LAB POCT ORDERABLES - DEVICE Performing Organization Address [facility] Phon e Number POC RST ORIENTAL ORTHODOX OUTPATIENT [address] [place], [place] [address] LABS documented in this encounter Visit Diagnoses Diagnosis Diarrhea Dilation Pancreatic Duct Stone Pancreatic Duct Pancreatitis Chronic (HCC) documented in this encounter Administered Medications Inactive Administered Medications - up to 3 most recent administrations Medication Order MAR Action Action Date Dose Rate Site iohexol 300 mg iodine/mL solution Given 08/19/2018 12:37 PM RESOLUTION MANAGER 140 mL 1-200 mL (OMNIPAQUE) 1-200 mL, intravenous, Once in imaging, contrast, Starting on Fri08/19/18 at 1202, For 1 dose, Imaging Protocol Orders, Dose per Radiant Medication Guidelines sodium chloride injection 2.5 mL Given 08/19/2018 12:43 PM RESOLUTION MANAGER 2.5 mL 2.5 mL, intravenous, As needed, line care, Starting on Fri08/19/18 at 1208 documented in this encounter Additional Health Concerns Assessment Noted Time PHQ-9 Depression Total Score: 18 04/28/2018 11:27 AM C DT documented as of this encounter Care Teams Sports Trainer Relationship Specialty Start Date End Date Ewa Alejandro M.D. PCP - General 03/13/17 01/09/20 [address], [place] [address] documented as of this encounter
--- OUTSIDE RECORDS SUMMARY | 2022-05-27 12:08 | XMS_ITS | Encounter Summary ---
:1945 Author Organization [facility] Address [address] [place] [address] Care Team Providers Name Role Phone Ewa Alejandro M.D. 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 Hypertension Ewa maloney M.D. [address] [place] [address] Referral ID Status Reason Start Date Expiration Date Visits V isits Requested Authorized [id number] Closed Specialty 11/16/2018 11/16/2019 1 1 Services Required SETTER STEEL PAN FORMS Encounter Details Date Type Department Care Team Description 11/16/2018 Orders Only Department of [facility] ertensive Heart And Medicine, Ewa Barclay, Chronic Kidney Disease Clinic, in [place] Without Heart Failure [place] [address] And With Stage 2 (Mild) [address] [place], [place] Chronic Kidney Disease [place] [address] (Primary Dx) [address] Social History Tobacco Use [...] do you attend mu-ism or Never 2021 hindu services? Do you [...] documented as of this encounter Care Teams Night Filler Relationship Specialty Start Date End Date Ewa Alejandro M.D. PCP - General 03/13/17 01/09/[address] [phone] documented as of this encounter
--- OUTSIDE RECORDS SUMMARY | 2022-05-27 12:08 | XMS_ITS | Encounter Summary ---
:1945 Author Organization [facility] Address [address] [place] [address] Care Team Providers Name Role Phone Ewa Alejandro M.D. Primary Care Provider [phone] Reason for Referral Outpatient (Routine) - Closed Specialty Diagnoses / Referred By Referred To Cont act Procedures Contact Gastroenterology and Emil Zurita Rocheste Felicita Hepatology [place] [address] [place] [address] Referral ID Status Reason Start Date Expiration Date Visits Requ ested Visits Authorized [id number] Closed 07/27/2018 07/27/2019 1 1 Scheduling Instructions Return after testing. Comprehensive denzel ent Outpatient (Routine) - Closed Specialty Diagnoses / Procedures Referred By Contact Refer red To Contact Diagnoses Diarrhea Persistent Unexplained Emil Zurita M.D. [facility] Procedures Colonoscopy [address] [place] [address] Referral ID Status Reason Start Date Expiration Date Visits Requ ested Visits Authorized [id number] Closed 07/27/2018 07/27/2019 1 1 Outpatient (Routine) - Closed Specialty Diagnoses / Procedures Referred By Contact Refer red To Contact Diagnoses Diarrhea Persistent Unexplained Emil Zurita M.D. [facility] Procedures EUS [address] [place] [address] Referral ID Status Reason Start Date Expiration Date Visits Requ ested Visits Authorized [id number] Closed 07/27/2018 07/27/2019 1 1 Outpatient (Routine) - Closed Specialty Diagnoses / Procedures Referred By Contact Refer red To Contact Diagnoses Diarrhea Persistent Unexplained Emil Zurita M.D. [facility] Procedures EGD [address] [place] [address] Referral ID Status Reason Start Date Expiration Date Visits Requ ested Visits Authorized [id number] Closed 07/27/2018 07/27/2019 1 1 Reason for Visit Reason Comments Pancreas Results Outside CT reviewed, recomen dations Encounter Details Date Type Department Care Team Description 07/27/2018 Clinical Division of Tomasa Alex Pancreas; Michael alegre Communication Gastroenterology in R, R.N. (Outside CT [place], [place] [address] reviewed, [address] [facility] recomendations ) [facility], [address] [place] [phone] Social History Tobacco Use Types Packs/Day Years [...] do you attend judaism or Never 2021 christian services? Do you [...] as of this encounter Care Teams Home Health Aide Relationship Specialty Start Date End Date Ewa Alejandro M.D. PCP - General 03/13/17 01/09/20 [address] [place] [phone] documented as of this encounter
--- OUTSIDE RECORDS SUMMARY | 2022-05-27 12:08 | XMS_ITS | Encounter Summary ---
:1945 Author Organization [facility] Address [address] [place] [address] Care Team Providers Name Role Phone Ewa Alejandro M.D. Primary Care Provider [phone] Reason for Visit Reason Onset Date Comments AWV 10/09/2018 Encounter Details Date Type Department Care Team Description 10/09/2018 Clinical Communication [facility] in [place] [address] [place] [address] Social History Tobacco Use Types [...] do you attend buddhist or Never 2021 sikh services? Do you [...] He thinks his depression was related to usp/although maybe related to the pancreatitis that he developed at the same time. NOLOGY ADVISOR Telephone Encounter - Caroline Plunkett R.N. - 10/09/2018 2:53 PM CST Called patient to discuss scheduling a Medicare Annual Wellness Visit. Patient has a lot going on right now so wishes to delay scheduling one for 6 months. I will send to scheduling to call again and place an order. Best time to call him is 7:30am. NOLOGY ADVISOR documented in this encounter Plan of Treatment Not on filedocumented as of this encounter Visit Diagnoses Diagnosis Annual Medicare Examination Return - Jennifer masoud documented in this encounter Additional Health Concerns Assessment Noted Time PHQ-9 Depression Total Score: 18 04/28/2018 11:27 AM C DT documented as of this encounter Care Teams Cargo Router Relationship Specialty Start Date End Date Ewa Alejandro M.D. PCP - General 03/13/17 01/09/[address] [place] [address] documented as of this encounter
--- OUTSIDE RECORDS SUMMARY | 2022-05-27 12:08 | XMS_ITS | Encounter Summary ---
:1945 Author Organization [facility] Address [address] [place] [address] Care Team Providers Name Role Phone Ewa [...] Expiration Date Visits Requ ested Visits Authorized [id number] Closed 11/03/2018 11/03/2019 1 1 Encounter Details Date Type Department Care Team Description 11/09/2018 Office Visit Department of Family [place] Hyp ertensive Heart Disease Without Heart Failure (Primary Dx); Medicine, Ewa Barclay, Diabetes Mellitus Type 2 (HCC) Clinic, in [place] [address] [place] [phone] Social History Tobacco Use Types Packs/Day Years [...] do you attend mandaeism or Never 2021 rastafarian services? Do you [...] Comments Blood Pressure 138/76 11/09/2018 8:55 AM JANITOR CARETAKER Pulse 78 11/09/2018 8:55 AM JANITOR CARETAKER Temperature 37.1 ??C (98.8 ??F) 11/09/2018 8:55 AM JANITOR CARETAKER Respiratory Rate 16 11/09/2018 8:55 AM JANITOR CARETAKER Oxygen Saturation - - Inhaled Oxygen Concentration - - Weight 107 kg (235 lb 3.7 oz) 11/09/2018 8:55 AM JANITOR CARETAKER Height 187.5 cm (6' 1.82) 11/09/2018 8:55 AM JANITOR CARETAKER Body Mass Index 30.35 11/09/2018 8:55 AM JANITOR CARETAKER documented in this encounter Progress Notes Ewa Alejandro M.D. - 11/09/2018 9:00 AM CST CHIEF COMPLAINT/ REASON FOR VISIT Concerns about blood pressure. HISTORY OF PRESENT ILLNESS Jonnathan Costa is a 73 y.o. male who presents to the clinic today for concerns about blood pressure. He has been struggling with his providers at the [facility] and he has been trying to switch his careto [facility]. When he saw the indoor landscape architect at [facility], he was scheduled with a PA and she told him that he needs to use his CPAP, even though he has been intolerant to this. She was worried about his blood pressure. He notes that when he comes into the clinic, his blood pressure on the machines are typicallyin the 140s. He has seen GI, endocrine, and a brass reclaimer at [facility] and they have a new regimen to [...] mouth daily. ??? flash glucose scanning reader (AugmateSTYLE ILEANA 14 DAY READER) [facility] Use as directed 1 each 0 [...] injection LW Addl Instr:Indicated for: Diabetes ??? kuoqgc-orsecvbf-pyuypjs (CREON) 6,000-19,000-30,[address] capsule Take [...] (HCC) 10/16/2009 Pulmonary symptomatology, diagnosis at the [facility] unclear, but probably some degree of COPD. [...] INSERTION INTRAOCULAR LENS Left 04/2008 At the [facility] ??? LASER OF PROSTATE W/ GREEN LIGHT PVP 08/28/2016 Greenlight photoselective vaporization of the prostate and cystoscopy with bladder biopsy and fulguration of a 2cm area; 08/28/[address] Prasanna Bernal at the [facility]. ??? TONSILLECTOMY ??? VASECTOMY PREVENTIVE SERVICES [...] will send referral to nephrology clinic at [facility]. #2 Diabetes Mellitus Type 2 (HCC) PLAN: [...] behalf by Karen Givens, a trained medical coding specialist. The creation of this record is based on the scribe's personal observations and the provider's statements to them. This document has been ch ecked and approved by the attending provider. TOR CARETAKER documented in this encounter Plan of Treatment Not on filedocumented as of this encounter Procedures Procedure Name Priority Date/Time Associated Diagnosis Comme nts HEMOGLOBIN A1C, B Routine 11/09/2018 10:11 Diabetes Mellitus R esults for this AM JANITOR CARETAKER Type 2 (HCC) procedure are i n the results section. BASIC METABOLIC Routine 11/09/2018 10:11 Hypertensive Heart Re sults for this PANEL, S/P AM JANITOR CARETAKER Disease Without Heart proced ure are in Failure the results section. documented in this encounter Results (ABNORMAL) Renal Function Panel (11/09/2018 10:11 AM JANITOR CARETAKER) P athologist Signature Potassium, S 4.3 3.6 - 5.2 11/09/2018 [facility] mmol/L 1:44 PM [facility] [place] [facility] Sodium, S 143 135 - 145 11/09/2018 [facility] mmol/L 1:44 PM [facility] [place] [facility] Chloride, S 106 98 - 107 11/09/2018 [facility] mmol/L 1:44 PM [facility] [place] [facility] Bicarbonate, S 24 22 - 29 11/09/2018 [facility] mmol/L 1:44 PM [facility] Anion Gap 13 7 - 15 11/09/2018 [facility] 1:44 PM [facility] BUN (Blood Urea 28 (H) 8 - 24 11/09/2018 [facility] Nitrogen), S mg/dL 1:44 PM [facility] Creatinine 1.13 0.74 - 11/09/2018 [facility] 1.35 mg/dL 1:44 PM [facility] eGFR-Non 63 >=60 11/09/2018 [facility] Black/ mL/min/BSA 1:44 PM [facility] [employer] [place] [facility] Comment: ----ADDITIONAL INFORMATION---- Estimated GFR calculated using the 2009 CKD_EPI creatinine equation. eGFR-Black/ 73 >=60 mL/min/BSA 2018 1:[address] [facility] Comment: ----ADDITIONAL INFORMATION---- Estimated GFR calculated using the 2009 CKD_EPI creatinine equation. Calcium, Total, S 9.7 8.8 - 10.2 11/09/2018 1:44 PM [facility] mg/dL [facility] Glucose, S 176 (H) 70 - 140 mg/dL 11/09/2018 1:44 PM [facility] [place] [facility] Albumin, S 4.4 3.5 - 5.0 g/dL 11/09/2018 1:[address] [facility] Phosphorus 3.9 2.5 - 4.5 mg/dL 11/09/2018 3:52 PM [facility] HEALTH (Inorganic), S [facility] [place] [facility] Specimen Anatomical Collection Method Collection Time Receive d Time (Source) Location / / Volume Laterality Blood (Blood, 11/09/2018 10:11 11/09/2018 Venous) AM JANITOR CARETAKER 12:58 PM JANITOR CARETAKER Narrative [facility] - 11/09/2018 3:52 PM JANITOR CARETAKER Specimen Information: Specimen ID: [id number] Specimen Type: Blood Specimen Collection Start Date: 11/09/19 10:11 AM Specimen Received Date: 11/09/2018 12:58 PM Specimen ID: [id number] Specimen Type: Blood Specimen Collection Start Date: 11/09/19 10:11 AM Specimen Received Date: 11/09/2018 ??3:3 7 PM Ewa Alejandro M.D. LAB BLOOD ADD-ON Performing Organization Address City/State/ZIP Code Phon e Number [facility] [address] [place] [address] [place] [facility] [address] [place] [address], [facility] (ABNORMAL[facility] CBC with Differential (11/09/2018 10:11 AM JANITOR CARETAKER) [facility] Method Time Signature Hemoglobin 12.8 (L) 13.2 - 11/09/2018 [facility] 16.6 g/dL 10:17 AM [employer] LAB Hematocrit 37.4 (L) 38.3 - 11/09/2018 [facility] 48.6 % 10:17 AM JANITOR CARETAKER [employer] LAB Erythrocytes 4.28 (L) 4.35 - 11/09/2018 [facility] 5.65 10:17 AM JANITOR CARETAKER HEALTH x10(12)/L [employer] LAB MCV 87.4 78.2 - 11/09/2018 [facility] 97.9 fL 10:17 AM [facility] LAB RBC Distrib Width 13.6 11.8 - 11/09/2018 [facility] 14.5 % 10:17 AM [employer] [facility] LAB Platelet Count 204 135 - 317 11/09/2018 [facility] x10(9)/L 10:17 AM [facility] LAB Leukocytes 6.2 3.4 - 9.6 11/09/2018 [facility] x10(9)/L 10:17 AM [employer] LAB Neutrophils 3.56 1.56 - 11/09/2018 [facility] 6.45 10:17 AM JANITOR CARETAKER HEALTH x10(9)/L [facility] Lymphocytes 1.47 0.95 - 11/09/2018 [facility] 3.07 10:17 AM [place] [employer] x10(9)/L [facility] [place] [facility] Monocytes 0.38 0.26 - 11/09/2018 [facility] 0.81 10:17 AM JANITOR CARETAKER HEALTH x10(9)/L [facility] [place] [facility] Eosinophils 0.71 (H) 0.03 - 11/09/2018 [facility] 0.48 10:17 AM JANITOR CARETAKER HEALTH x10(9)/L [facility] [place] [facility] Basophils 0.08 0.01 - 11/09/2018 [facility] 0.08 10:17 AM JANITOR CARETAKER HEALTH x10(9)/L [facility] [place] [facility] Specimen Anatomical Collection Method Collection Time Receive d Time (Source) Location / / Volume Laterality Blood (Blood, 11/09/2018 10:11 11/09/2018 Venous) AM JANITOR CARETAKER 10:11 AM JANITOR CARETAKER Ewa Alejandro M.D. LAB BLOOD ADD-ON Performing Organization Address City/State/ZIP Code Phon e Number [facility] [address] [place] [address] LAB (ABNORMAL) Hemoglobin A1c (11/09/2018 10:11 AM JANITOR CARETAKER) P athologist Signature Hemoglobin A1c, 8.4 (H) 4.2 - 5.6 11/09/2018 [facility] B % 1:18 PM [facility] Comment: Hemoglobin A1c values greater than or eq ual to 6.5 percent are diagnostic for diabetes mellitus. ?? Diagnosis should be confirmed by repeat testing. ??In diabet ic patients, HbA1c goals should be discussed with healthcar e provider. Specimen Anatomical Collection Method Collection Time Receive d Time (Source) Location / / Volume Laterality Blood (Blood, 11/09/2018 10:11 11/09/2018 Venous) AM JANITOR CARETAKER 12:58 PM JANITOR CARETAKER Ewa Alejandro M.D. LAB BLOOD ADD-ON Performing Organization Address City/State/ZIP Code Phon e Number [facility] [address], [place] [address] LAB (ABNORMAL) Basic Metabolic Panel (11/09/2018 10:11 AM JANITOR CARETAKER) P athologist Signature Potassium, S 4.2 3.6 - 5.2 11/09/2018 [facility] mmol/L 1:33 PM [facility] Sodium, S 142 135 - 145 11/09/2018 [facility] mmol/L 1:33 PM [facility] Chloride, S 105 98 - 107 11/09/2018 [facility] mmol/L 1:33 PM [facility] Bicarbonate, S 24 22 - 29 11/09/2018 [facility] mmol/L 1:33 PM [facility] Anion Gap 13 7 - 15 11/09/2018 [facility] 1:33 PM [facility] BUN (Blood Urea 28 (H) 8 - 24 11/09/2018 [facility] Nitrogen), S mg/dL 1:33 PM [facility] Creatinine 1.13 0.74 - 11/09/2018 [facility] 1.35 mg/dL 1:33 PM [facility] eGFR-Non 63 >=60 11/09/2018 [facility] Black/ mL/min/BSA 1:33 PM [facility] [employer] [place] [facility] Comment: ----ADDITIONAL INFORMATION---- Estimated GFR calculated using the 2009 CKD_EPI creatinine equation. eGFR-Black/ 73 >=60 mL/min/BSA 2018 1:33 PM [facility] [place] [facility] Comment: ----ADDITIONAL INFORMATION---- Estimated GFR calculated using the 2009 CKD_EPI creatinine equation. Calcium, Total, S 9.7 8.8 - 10.2 mg/dL 11/09/2018 1:[address] [facility] Glucose, S 177 (H) 70 - 140 mg/dL 11/09/2018 1:[address] [facility] [facility] Specimen Anatomical Collection Method Collection Time Receive d Time (Source) Location / / Volume Laterality Blood (Blood, 11/09/2018 10:11 11/09/2018 Venous) AM JANITOR CARETAKER 12:57 PM JANITOR CARETAKER Ewa Alejandro M.D. LAB BLOOD ADD-ON Performing Organization Address City/State/ZIP Code Phon e Number [facility] [employer] [address] [place] [address] LAB documented in this encounter Visit Diagnoses Diagnosis Hypertensive Heart Disease Without Heart Failure - Primary Diabetes Mellitus Type 2 (HCC) Hypertensive Heart Disease Without Heart Failure documented in this encounter Additional Health Concerns Assessment Noted Time PHQ-9 Depression Total Score: 18 04/28/2018 11:27 AM C DT documented as of this encounter Care Teams Decontaminator Relationship Specialty Start Date End Date Ewa Alejandro M.D. PCP - General 03/13/17 01/09/[address] [address] documented as of this encounter
--- OUTSIDE RECORDS SUMMARY | 2022-05-27 12:08 | XMS_ITS | Encounter Summary ---
:1945 Author Organization [facility] Address [address] [place] [address] Care Team Providers Name Role Phone Ewa Alejandro M.D. Primary Care Provider [phone] Encounter Details Date Type Department Care Team Description 08/21/2018 Documentation Division of Gastroenterology [place] in [facility] cameron [address] [place] [phone] Social History Tobacco Use Types Packs/Day Years [...] documented as of this encounter Care Teams Flatbed Owner Operator Relationship Specialty Start Date End Date Ewa Alejandro M.D. PCP - General 03/13/17 01/09/20 [address], [place] [address] documented as of this encounter
--- OUTSIDE RECORDS SUMMARY | 2022-05-27 12:08 | XMS_ITS | Encounter Summary ---
:1945 Author Organization [facility] Address [address] [place] [address] Care Team Providers Name Role Phone Ewa Alejandro M.D. Primary Care Provider Encounter Details Date Type Department Care Team Description 11/09/2018 Hospital Encounter Department of Lea [facility] Heart Laboratory Medicine Ewa brunson Diseas e Without Heart in [place] [address] [place] [phone] Social History Tobacco Use Types Packs/Day [...] do you attend yarsani or Never 2021 taoist services? Do you [...] 1 each 0 09/18/20 18 05/01/2020 reader (EdeniQSTYLE ILEANA 14 DAY READER) [facility] flash glucose sensor Use as directed. 6 [...] KwikPen) 100 unit/mL for: Diabetes (70-30) injection cgbprj-vmxoazwm-qpmwaeg Take 2 capsules by 120 capsule 0 [...] Res ults for this PANEL, S AM POWER SUPPLY ENGINEER Disease Without Heart proced ure are in Failure the results section. CBC WITH Routine 11/09/2018 10:11 Hypertensive Heart Resul ts for this DIFFERENTIAL, B AM POWER SUPPLY ENGINEER Disease Without Heart pro cedure are in Failure the results section. documented in this encounter Results (ABNORMAL) Renal Function Panel (11/09/2018 10:11 AM POWER SUPPLY ENGINEER) P athologist Signature Potassium, S 4.3 3.6 - 5.2 11/09/2018 [facility] mmol/L 1:44 PM [facility] Sodium, S 143 135 - 145 11/09/2018 [facility] mmol/L 1:44 PM [facility] Chloride, S 106 98 - 107 11/09/2018 [facility] mmol/L 1:44 PM [facility] Bicarbonate, S 24 22 - 29 11/09/2018 [facility] mmol/L 1:44 PM [facility] Anion Gap 13 7 - 15 11/09/2018 [facility] 1:44 PM [facility] BUN (Blood Urea 28 (H) 8 - 24 11/09/2018 [facility] Nitrogen), S mg/dL 1:44 PM [facility] Creatinine 1.13 0.74 - 11/09/2018 [facility] 1.35 mg/dL 1:44 PM [facility] [place] [facility] eGFR-Non 63 >=60 11/09/2018 [facility] Black/ mL/min/BSA 1:44 PM [facility] [place] [facility] Comment: ----ADDITIONAL INFORMATION---- Estimated GFR calculated using the 2009 CKD_EPI creatinine equation. eGFR-Black/ 73 >=60 mL/min/BSA 2018 1:44 PM [facility] [place] [facility] Comment: ----ADDITIONAL INFORMATION---- Estimated GFR calculated using the 2009 CKD_EPI creatinine equation. Calcium, Total, S 9.7 8.8 - 10.2 11/09/2018 1:44 PM [facility] mg/dL [facility] [place] [facility] Glucose, S 176 (H) 70 - 140 mg/dL 11/09/2018 1:44 PM [facility] [place] [facility] Albumin, S 4.4 3.5 - 5.0 g/dL 11/09/2018 1:44 PM [facility] Phosphorus 3.9 2.5 - 4.5 mg/dL 11/09/2018 3:52 PM [facility] (Inorganic), S [facility] [place] [facility] Specimen Anatomical Collection Method Collection Time Receive d Time (Source) Location / / Volume Laterality Blood (Blood, 11/09/2018 10:11 11/09/2018 Venous) AM POWER SUPPLY ENGINEER 12:58 PM POWER SUPPLY ENGINEER Narrative [facility] - 11/09/2018 3:52 PM POWER SUPPLY ENGINEER Specimen Information: Specimen ID: [id number] Specimen Type: Blood Specimen Collection Start Date: 11/09/19 19 10:11 AM Specimen Received Date: 11/09/2018 12:58 PM Specimen ID: [id number] Specimen Type: Blood Specimen Collection Start Date: 11/09/19 10:11 AM Specimen Received Date: 11/09/2018 ??3:3 7 PM Ewa Alejandro M.D. LAB BLOOD ADD-ON Performing Organization Address City/State/ZIP Code Phon e Number [facility]- [address] [place] [address] MAC LAB [facility] [address] [place] [address], [address] [facility] LAB (ABNORMAL) CBC with Differential (11/09/2018 10:11 AM POWER SUPPLY ENGINEER) [employer] Method Time Signature Hemoglobin 12.8 (L) 13.2 - 11/09/2018 [facility] 16.6 g/dL 10:17 AM [facility] LAB Hematocrit 37.4 (L) 38.3 - 11/09/2018 [facility] 48.6 % 10:17 AM [facility] LAB Erythrocytes 4.28 (L) 4.35 - 11/09/2018 [facility] 5.65 10:17 AM POWER SUPPLY ENGINEER HEALTH x10(12)/L [facility] LAB MCV 87.4 78.2 - 11/09/2018 [facility] 97.9 fL 10:17 AM POWER SUPPLY ENGINEER [place] [facility] [email or web address] LAB RBC Distrib Width 13.6 11.8 - 11/09/2018 [facility] 14.5 % 10:17 AM [facility] LAB Platelet Count 204 135 - 317 11/09/2018 [facility] x10(9)/L 10:17 AM [facility] Leukocytes 6.2 3.4 - 9.6 11/09/2018 [facility] x10(9)/L 10:17 AM [facility] Neutrophils 3.56 1.56 - 11/09/2018 [facility] 6.45 10:17 AM POWER SUPPLY ENGINEER HEALTH x10(9)/L [facility] LAB Lymphocytes 1.47 0.95 - 11/09/2018 [facility] 3.07 10:17 AM POWER SUPPLY ENGINEER HEALTH x10(9)/L [facility] Monocytes 0.38 0.26 - 11/09/2018 [facility] 0.81 10:17 AM POWER SUPPLY ENGINEER HEALTH x10(9)/L [facility] Eosinophils 0.71 (H) 0.03 - 11/09/2018 [facility] 0.48 10:17 AM POWER SUPPLY ENGINEER HEALTH x10(9)/L [facility] Basophils 0.08 0.01 - 11/09/2018 [facility] 0.08 10:17 AM POWER SUPPLY ENGINEER HEALTH x10(9)/L [facility] [place] LAB Specimen Anatomical Collection Method Collection Time Receive d Time (Source) Location / / Volume Laterality Blood (Blood, 11/09/2018 10:11 11/09/2018 Venous) AM POWER SUPPLY ENGINEER 10:11 AM POWER SUPPLY ENGINEER Ewa Alejandro M.D. LAB BLOOD ADD-ON Performing Organization Address City/State/ZIP Code Phon e Number [facility] [address] [place] [address] LAB documented in this encounter Visit Diagnoses Diagnosis Hypertensive Heart Disease Without Heart Failure documented in this encounter Additional Health Concerns Assessment Noted Time PHQ-9 Depression Total Score: 18 04/28/2018 11:27 AM C DT documented as of this encounter Care Teams Managing Consultant Clinical Professor Relationship Specialty Start Date End Date Ewa Alejandro M.D. PCP - General 03/13/17 01/09/20 [address] [place] [phone] documented as of this encounter
--- OUTSIDE RECORDS SUMMARY | 2022-05-27 12:08 | XMS_ITS | Encounter Summary ---
:1945 Author Organization [facility] Address [address] [place] [address] Care Team Providers Name Role Phone Ewa Alejandro M.D. Primary Care Provider [phone] Encounter Details Date Type Department Care Team Description 08/10/2018 Orders Only Division of Gastroenterology in [place], [place] [address] [facility] [address] [place] [address] [place], [place] [phone] (Wo rk) Social History Tobacco Use Types [...] do you attend baptist or Never 2021 yazidism services? Do you [...] documented as of this encounter Care Teams College Sports Assistant Relationship Specialty Start Date End Date Ewa Alejandro M.D. PCP - General 03/13/17 01/09/20 [address], [place] [address] documented as of this encounter
--- OUTSIDE RECORDS SUMMARY | 2022-05-27 12:08 | XMS_ITS | Encounter Summary ---
:1945 Author Organization [facility] Address [address] [place] [address] Care Team Providers Name Role Phone Ewa Alejandro M.D. Primary Care Provider [phone] Encounter Details Date Type Department Care Team Description 08/19/2018 Hospital Encounter Department of Parminder, Diarrhea ; Laboratory Medicine Rhoda Stein Dilation Pancreatic Duct (HCC); and Pathology, [address] [place] [address] Stone Pancreatic Duct (HCC); [facility], in [place], [place] Pancrea titis Chronic (HCC) [place], [place] [address] [place] [address] [place], [place] (Work) [phone] Social History Tobacco Use Types Packs/Day Years [...] do you attend presybeterian or Never 2021 church services? Do you [...] PM Diarrhea Results for this EGFR, S/P [facility] Dilation Pancreatic procedur e are in Duct (HCC) the results Stone Pancreatic section. Duct (HCC) Pancreatitis Chronic (HCC) documented in this encounter Results Creatinine with Estimated GFR (08/19/2018 1:16 PM [facility]) Analysis Performed At Patho logist Time Signature Creatinine 1.04 0.74 - 08/19/2018 [facility] 1.35 mg/dL 2:27 PM [facility] eGFR-Non 70 >=60 08/19/2018 [facility] Black/ mL/min/BSA 2:27 PM [facility] Comment: ----ADDITIONAL INFORMATION---- Estimated GFR calculated using the 2009 CKD_EPI creatinine equation. eGFR-Black/ 81 >=60 mL/min/BSA 08/19/2018 2:27 [facility] Namibian PM [facility] Comment: ----ADDITIONAL INFORMATION---- Estimated GFR calculated using the 2009 CKD_EPI creatinine equation. Specimen Anatomical Collection Method Collection Time Receive d Time (Source) Location / / Volume Laterality Blood (Blood, 08/19/2018 1:16 PM 08/19/20 18 1:43 Venous) [facility] PM [facility] Emil Zurita M.D. LAB BLOOD ADD-ON Performing Organization Address City/State/ZIP Code Phon e Number [facility] - [address] documented in this encounter Visit Diagnoses Diagnosis Diarrhea Dilation Pancreatic Duct Stone Pancreatic Duct Pancreatitis Chronic (HCC) documented in this encounter Additional Health Concerns Assessment Noted Time PHQ-9 Depression Total Score: 18 04/28/2018 11:27 AM C DT documented as of this encounter Care Teams Life Science Technician Relationship Specialty Start Date End Date Ewa Alejandro M.D. PCP - General 03/13/17 01/09/[address] [phone] documented as of this encounter
--- OUTSIDE RECORDS SUMMARY | 2022-05-27 12:08 | XMS_ITS | Encounter Summary ---
:1945 Author Organization [facility] Address [address] [place] [address] Care Team Providers Name Role Phone Ewa Alejandro M.D. Primary Care Provider [phone] Reason for Referral Outpatient (Routine) - Closed Specialty Diagnoses / Procedures Referred By Contact Refer red To Contact Endocrinology Diagnoses Pancreatitis Chronic (HCC) Emil Zurita M.D. [facility] 200 [place] [address] Referral ID Status Reason Start Date Expiration Date Visits Requ ested Visits Authorized [id number] Closed 08/19/2018 08/19/2019 1 1 UTOR OF ESTATE Reason for Visit Outpatient (Routine) - Closed Specialty Diagnoses / Referred By Referred To Cont act Procedures Contact Gastroenterology and Diagnoses Diarrhea Dilation Pancreatic Duct Stone Pancreatic Duct Pancreatitis Chronic (HCC) [facility] [place] 200 [place] [address] Referral ID Status Reason Start Date Expiration Date Visits Requ ested Visits Authorized [id number] Closed 07/10/2018 07/10/2019 1 1 Encounter Details Date Type Department Care Team Description 08/19/2018 Office Visit Division of Parminder, Pancreatitis Ch ronic (HCC) (Primary Dx); Gastroenterology in [place]oda Stein Diarrhea; [place], [place] [address] [facility] Dilation Pancreatic Duct (HCC); [address] [place], [place] Stone Pancreatic Duct (HCC) [place] [phone] Social History Tobacco Use Types Packs/Day Years [...] do you attend orthodoxy or Never 2021 sikh services? Do you [...] and was in agreement. Multiple questions answered. UTOR OF ESTATE documented in this encounter Plan of Treatment Scheduled Referrals Name Type Priority Associated Diagnoses Order S [facility] Endocrinology - Outpatient Routine Pancreatitis Chronic Expe [...] documented as of this encounter Care Teams Switchboard And Control Room Operator Relationship Specialty Start Date End Date Ewa Alejandro M.D. PCP - General 03/13/17 01/09/[address] [phone] documented as of this encounter
--- OUTSIDE RECORDS SUMMARY | 2022-05-27 12:08 | XMS_ITS | Encounter Summary ---
:1945 Author Organization [facility] Address [address] [place] [address] Care Team Providers Name Role Phone Ewa Alejandro M.D. Primary Care Provider [phone] Reason for Visit Reason Comments Med Refill Encounter Details Date Type Department Care Team Description 08/11/2018 Refill Division of Gastroenterology in Emil Zurita, [facility] Refill [place], [place] [address] [place] [address] [place] [address] [place], [place] [phone] (Wo rk) Social History Tobacco Use Types [...] do you attend hinduism or Never 2021 mandaen services? Do you [...] as of this encounter Care Teams Senior Radiation Protection Technician Relationship Specialty Start Date End Date Ewa Alejandro M.D. PCP - General 03/13/17 01/09/20 [address], [place] [address] documented as of this encounter
--- OUTSIDE RECORDS SUMMARY | 2022-05-27 12:08 | XMS_ITS | Encounter Summary ---
:1945 Author Organization [facility] Address [address] [place] [address] Care Team Providers Name Role Phone Ewa Alejandro M.D. Primary Care Provider Encounter Details Date Type Department Care Team Description 09/16/2018 Clinical Communication Department of Family Kirill Torres [facility], Ewa Barclay, Clinic, in [place] [address] [place] [phone] Social History Tobacco Use Types Packs/Day Years [...] do you attend zoroastrian or Never 2021 methodist services? Do you [...] Jacquie Hamilton L.P.NMauro - 09/21/2018 2:02 PM CODING SPEC Patient notified consult placed to [facility] NG SPEC Telephone Encounter - Ewa Alejandro M.D. - 09/21/2018 1:53 PM CODING SPEC Consult completed NG SPEC Telephone Encounter - Jacquie Hamilton L.PMauroNMauro - 09/21/2018 10:41 AM CODING SPEC Per patient biopsy was completed on left side of nose just under left eye. Per patient it is basal cell carcinoma. Request for Patients biopsy slides To be forwarded to [facility] dermatology onocology department was [facility] and [facility] gave him the results of the biopsy completed there since patient wants further surgical proceedures and treatments completed in [facility] of [facility]. Per patient if [facility] does not receive slides he stated he will personally drive to the [facility] and get them. Per patient please submitt referal for [facility] so appointment can be made after first of the year NG SPEC Telephone Encounter - Estelle Chau R.N. - 09/17/2018 9:09 AM CST Attempted to call patient, voicemail is full unable to leave message. NG SPEC Telephone Encounter - Ewa Alejandro M.D. - 09/16/2018 4:34 PM CODING SPEC Yes but I need more information. Where was the biopsy? What is the type of cancer? How will we get the pathology slides to [place]? I need to know this before I make the referral request. NG SPEC Telephone Encounter - Estelle Chau R.N. - [...] He is asking to be referred to [facility] for this so he is asking if he could be referred to [facility] for this. Please advise. NG SPEC Telephone Encounter - Mamta Olivares - 09/16/2018 1:33 PM CST Reason for Communication: Patient is calling, wants to talk to nurse before he scheduleds with doctor. Current Can Nursing/Provider leave a detailed message: yes Did the patient refuse triage through Nurse line? (for symptom based concerns)na Action Needed: please call patient back Name of Medication (if relevant): na NG SPEC documented in this encounter Plan of Treatment Not on filedocumented as of this encounter Visit Diagnoses Diagnosis Basal Cell Carcinoma Breast - Primary documented in this encounter Additional Health Concerns Assessment Noted Time PHQ-9 Depression Total Score: 18 04/28/2018 11:27 AM C DT documented as of this encounter Care Teams Tie Loader Relationship Specialty Start Date End Date Ewa Alejandro M.D. PCP - General 03/13/17 01/09/20 [address] [place] [phone] documented as of this encounter
--- OUTSIDE RECORDS SUMMARY | 2022-05-27 12:08 | XMS_ITS | Encounter Summary ---
:1945 Author Organization [facility] Address [address] [place] [address] Care Team Providers Name Role Phone Ewa Alejandro M.D. Primary Care Provider Encounter Details Date Type Department Care Team Description 10/06/2018 Clinical Communication Department of Family Kirill Torres [facility], Ewa Jack, [facility], in [place] [address] [place] [phone] Social History Tobacco Use Types Packs/Day Years [...] do you attend zoroastrianism or Never 2021 episcopalian services? Do you [...] Morelia Garcia L.P.NMauro - 10/06/2018 12:44 PM ERP ENGINEER Please advise on the request for a referral to Derm surgery in [place]. ENGINEER Telephone Encounter - Tolu Amanda - 10/06/2018 11:02 AM CST Reason for Communication: Patient needs to be seen in [place]. [facility]yllis doesn't do Mohs surgeries. Current Phone Number: Can Nursing/Provider leave a detailed message: na Did the patient refuse triage through Nurse line? (for symptom based concerns)na Action Needed: 10/06/18 Please have Ewa gonzales new order for [facility]; Derm Surgery Consult: BCC nose [facility]s [facility] Ewa Hinton 09/21/2018 (Approximate) Name of Medication (if relevant): ENGINEER documented in this encounter Plan of Treatment Not on filedocumented as of this encounter Visit Diagnoses Not on filedocumented in this encounter Additional Health Concerns Assessment Noted Time PHQ-9 Depression Total Score: 18 04/28/2018 11:27 AM C DT documented as of this encounter Care Teams Manager Of Product Relationship Specialty Start Date End Date Ewa Alejandro M.D. PCP - General 03/13/17 01/09/[address] [phone] documented as of this encounter
--- OUTSIDE RECORDS SUMMARY | 2022-05-27 12:08 | XMS_ITS | Encounter Summary ---
:1945 Author Organization [facility] Address [address] [place] [address] Care Team Providers Name Role Phone Ewa Alejandro M.D. Primary Care Provider [phone] Reason for Referral Specialty Diagnoses / Procedures Referred By Contact Refer red To Contact Consuelo Tom M.D. [address] [address] Referral ID Status Reason Start Date Expiration Date Visits Requ ested Visits Authorized RVISOR OF OPERATIONS Reason for Visit Outpatient (Routine) - Closed Specialty Diagnoses / Procedures Referred By Contact Refer red To Contact Endocrinology Diagnoses Pancreatitis Chronic (HCC) Emil Zurita M.D. [address] [address] Referral ID Status Reason Start Date Expiration Date Visits Requ ested Visits Authorized [id number] Closed 08/19/2018 08/19/2019 1 1 Encounter Details Date Type Department Care Team Description 09/18/2018 Comprehensive Visit Division of Anjelica Bell APRN, C.N.P., M.S. [address] [place] [phone] Pancreatitis Chronic Endocrinology in Consuelo Tom M.D. [address] [place] [phone] ([facility]) [place], [place] [address] [place] [address] Social History Tobacco Use Types Packs/Day Years [...] do you attend judaism or Never 2021 yarsanism services? Do you [...] min or its worst immediately before eating. RVISOR OF OPERATIONS documented in this encounter Consult Notes Consuelo Tom M.D. - 09/18/2018 2:30 PM CST ENDOCRINOLOGY, METABOLISM, DIABETES AND NUTRITION Diabetes Consult Note REFERRAL Emil Zurita M.D. DEMOGRAPHIC INFORMATION Patient Name: Jonnathan Costa Age/ Sex: 73 y.o. male Date of : 1945 Address: [address] [place] [phone] Service Date/ Time: 09/18/2018 14:12 Boat Rental Clerk: Consuelo Tom M.D. SUBJECTIVE CHIEF COMPLAINT/ PURPOSE [...] skin at bedtime., Disp: , Rfl: ??? 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 has a past surgical history that [...] Stroke (HCC) #14 Cancer Bladder Family History RVISOR OF OPERATIONS documented in this encounter Miscellaneous Notes Addendum Note - Consuelo Tom M.D. - 09/18/2018 2:30 PM SUPERVISOR OF OPERATIONS Addended by: CONSUELO TOM on: 09/18/2018 03:19 PM Modules accepted: Orders RVISOR OF OPERATIONS documented in this encounter Plan of Treatment Scheduled Referrals Name Type Priority Associated Diagnoses Order S chedule Nutrition - Outpatient Referral Routine Pancreatitis Chronic Expected: certified diabetes educator (HCC) 09/18/2018 visit (clinic) (Approximate) , Expires: 09/18/2019 documented as of this encounter Visit Diagnoses Diagnosis Pancreatitis Chronic (HCC) documented in this encounter Additional Health Concerns Assessment Noted Time PHQ-9 Depression Total Score: 18 04/28/2018 11:27 AM C DT documented as of this encounter Care Teams Hot Blaster Relationship Specialty Start Date End Date Ewa Alejandro M.D. PCP - General 03/13/17 01/09/20 [address] [place] [phone] documented as of this encounter
--- OUTSIDE RECORDS SUMMARY | 2022-05-27 12:08 | XMS_ITS | Encounter Summary ---
:1945 Author Organization [facility] Address [address] [place] [address] Care Team Providers Name Role Phone Ewa Alejandro M.D. Primary Care Provider [phone] Reason for Referral Outpatient (Routine) - Closed Specialty Diagnoses / Referred By Referred To Cont act Procedures Contact Gastroenterology and Emil Zurita [facility] Hepatology [place] [address] [place] [address] Referral ID Status Reason Start Date Expiration Date Visits Requ ested Visits Authorized [id number] Closed 09/15/2018 09/15/2019 1 1 HAUL DUMP OPERATOR MRI/CAT/PET Scan (Routine) - Closed Specialty Diagnoses / Procedures Referred By Contact Refer red To Contact Radiology Diagnoses Pancreatitis Chronic (HCC) Emil Zurita M.D. [facility] Procedures CT Abdomen Pelvis with IV Contrast OH CT ABD&PELVIS W CNTRST HC CT ABD&PELVIS W CNTRST OH CT ABD&PELVIS W CNTRST [address] [place], [place] [address] Referral ID Status Reason Start Date Expiration Date Visits Requ ested Visits Authorized [id number] Closed 09/15/2018 09/15/2019 1 1 HAUL DUMP OPERATOR Reason for Visit Outpatient (Routine) - Closed Specialty Diagnoses / Referred By Referred To Cont act Procedures Contact Gastroenterology and Emil [facility]ita [facility] Hepatology [place] [address] [place] [address] Referral ID Status Reason Start Date Expiration Date Visits Requ ested Visits Authorized [id number] Closed 07/27/2018 07/27/2019 1 1 Encounter Details Date Type Department Care Team Description 09/15/2018 Office Visit Division of Greyson Zurita Ch Gastroenterology in [place] Stein (HCC) (Primary Dx) [place], [place] [address] [facility] [address] [place] [phone] Social History Tobacco Use Types Packs/Day Years [...] do you attend alevism or Never 2021 islam services? Do you [...] has my contact information. Multiple questions answered HAUL DUMP OPERATOR documented in this encounter Plan of Treatment Scheduled Referrals Name Type Priority Associated Order Schedule Diagnoses Gastroenterology and Outpatient Routine Expecte d: Hepatology office visit Referral 08/29 (clinic) (Approximate), Expires: 09/15/2020 documented as of this encounter Results CT Abdomen Pelvis with IV Contrast (10/11/2019 11:05 AM LOAD HAUL DUMP OPERATOR) Anatomical Region Laterality Modality Abdomen, Pelvis, Abdominal RST LOS, N/A Comp uted Tomography, Computed Abdominal ARZ LOS, Abdominal FLA LOS Logan ography Specimen (Source) Anatomical Collection Method Collection Time Re ceived Time Location / / Volume Laterality 10/11/2019 1:13 PM LOAD HAUL DUMP OPERATOR Impressions 10/11/2019 1:24 PM LOAD HAUL DUMP OPERATOR No significant change from the most recent prior study; chronic changes of pancreatitis. Narrative 10/11/2019 1:24 PM LOAD HAUL DUMP OPERATOR EXAM: ??CT ABDOMEN PELVIS WITH IV CONTRAST [...] 25-Hydroxyvitamin D2 and D3 (10/11/2019 9:52 AM LOAD HAUL DUMP OPERATOR) athologist Signature 25-Hydroxy D2 <4.0 ng/mL 10/12/2019 SDSC 9:47 PM LOAD HAUL DUMP OPERATOR 25-Hydroxy D3 15 ng/mL 10/12/2019 [facility]SC 9:47 PM LOAD HAUL DUMP OPERATOR 25-Hydroxy D 15 (L) ng/mL 10/12/2019 [facility] Total 9:47 PM LOAD HAUL DUMP OPERATOR Comment: Interpretation: 10-19 ng/mL (mild to mod erate deficiency) ----REFERENCE VALUE---- 25-HYDROXY D TOTAL (D2+D3) Optimum level s in the healthy population are 20-50, patients with bone disease may benefit from higher levels within this r stan. ----ADDITIONAL INFORMATION---- This test was developed and its performa nce characteristics determined by [facility] in a manner consistent with CLIA requirements. This test has not been cleared or approved by the [place] Sus[place] d and Drug Administration. Specimen Anatomical Collection Method Collection Time Receive d Time (Source) Location / / Volume Laterality Blood (Blood, 10/11/2019 9:52 AM 10/11/19 20 1:30 Venous) LOAD HAUL DUMP OPERATOR PM LOAD HAUL DUMP OPERATOR Emil Zurita M.D. LAB BLOOD ADD-ON Performing Organization Address City/State/ZIP Code Phon e Number [facility] [address] [place] [address] SU[facility] [place] [address] Laboratory Medicine and Pathology [address] [place] Vitamin A and Vitamin E (10/11/2019 9:52 AM LOAD HAUL DUMP OPERATOR) athologist Signature Vitamin A 53.5 32.5 - 78.0 10/12/2019 SDS mcg/dL 10:37 PM LOAD HAUL DUMP OPERATOR Comment: ----ADDITIONAL INFORMATION---- This test was developed and its performa nce characteristics determined by [facility] in a manner consistent with CLIA requirements. This test has not been cleared or approved by the [place]. Sus[place] d and Drug Administration. A-Tocopherol, Vitamin E 10.9 5.5 - 17.0 mg/L 10/12/2019 1:35 PM LOAD HAUL DUMP OPERATOR [facility] Specimen Anatomical Collection Method Collection Time Receive d Time (Source) Location / / Volume Laterality Blood (Blood, 10/11/2019 9:52 AM 10/11/19 4:31 Venous) LOAD HAUL DUMP OPERATOR PM LOAD HAUL DUMP OPERATOR Authorizing Provider Result Deloris Zurita M.D. LAB BLOOD NON ADD-ON Performing Organization Address City/[facility]/ZIP Code Phon e Number [facility] [address] [place], [place] [address] [facility] CENTER [facility] [place] [address] Laboratory Medicine and Pathology [address] [place] (ABNORMAL) Glucose, Fasting (10/11/2019 9:52 AM LOAD HAUL DUMP OPERATOR) P athologist Signature Glucose, P 149 (H) 70 - 100 10/11/2019 DTL mg/dL 11:01 AM LOAD HAUL DUMP OPERATOR Last Intake 17 hr 10/11/2019 DTL 10:14 AM LOAD HAUL DUMP OPERATOR Specimen Anatomical Collection Method Collection Time Receive d Time (Source) Location / / Volume Laterality Blood (Blood, 10/11/2019 9:52 AM 10/11/19 Venous) LOAD HAUL DUMP OPERATOR 10:14 AM LOAD HAUL DUMP OPERATOR Authorizing Provider Result Deloris Zurita M.D. LAB BLOOD NON ADD-ON Performing Organization Address City/State/ZIP Code Phon e Number [facility] - [address] [place], [place] [address] [facility] [place] [address] Laboratories-[facility] [address] (ABNORMAL) Hemoglobin A1c (10/11/2019 9:52 AM LOAD HAUL DUMP OPERATOR) Analysis Performed At Patho logist Time Signature Hemoglobin A1c, 10.2 (H) 4.0 - 5.6 10/11/2019 DTL B % 12:15 PM LOAD HAUL DUMP OPERATOR Comment: Hemoglobin A1c values greater than or eq ual to 6.5 percent are diagnostic for diabetes mellitus. ?? Diagnosis should be confirmed by repeat testing. ??In diabet ic patients, HbA1c goals should be discussed with healthcar e provider. Specimen Anatomical Collection Method Collection Time Receive d Time (Source) Location / / Volume Laterality Blood (Blood, 10/11/2019 9:52 AM 10/11/19 Venous) LOAD HAUL DUMP OPERATOR 10:14 AM LOAD HAUL DUMP OPERATOR Emil Zurita M.D. LAB BLOOD ADD-ON Performing Organization Address City/[facility] Phon e Number [facility] - 200 [place], [place] [address] [facility] [place] [address] Laboratories[address] (ABNORMAL) Creatinine with Estimated GFR (10/11/2019 9:52 AM LOAD HAUL DUMP OPERATOR) athologist Signature Creatinine 1.26 0.74 - 10/11/2019 DTL 1.35 mg/dL 10:54 AM LOAD HAUL DUMP OPERATOR eGFR-Non 55 (L) >=60 10/11/2019 DTL Black/ mL/min/BSA 10:54 AM LOAD HAUL DUMP OPERATOR [place] Comment: ----ADDITIONAL INFORMATION---- Estimated GFR calculated using the 2009 CKD_EPI creatinine equation. eGFR-Black/ 64 >=60 mL/min/BSA 2019 10:54 AM LOAD HAUL DUMP OPERATOR DTL Comment: ----ADDITIONAL INFORMATION---- Estimated GFR calculated using the 2009 CKD_EPI creatinine equation. Specimen Anatomical Collection Method Collection Time Receive d Time (Source) Location / / Volume Laterality Blood (Blood, 10/11/2019 9:52 AM 10/11/19 Venous) LOAD HAUL DUMP OPERATOR 10:14 AM LOAD HAUL DUMP OPERATOR Emil Zurita M.D. LAB BLOOD ADD-ON Performing Organization Address City/[facility] Code Phon e Number [facility] - 200 [place], [place] [address] [facility] [place] [address] Laboratories[address] documented in this encounter Visit Diagnoses Diagnosis Pancreatitis Chronic (HCC) - Primary Pancreatitis Chronic (HCC) documented in this encounter Additional Health Concerns Assessment Noted Time PHQ-9 Depression Total Score: 18 04/28/2018 11:27 AM C DT documented as of this encounter Care Teams Basket Weaver Relationship Specialty Start Date End Date Ewa Alejandro M.D. PCP - General 03/13/17 01/09/20 [address] [place] [phone] documented as of this encounter
--- OUTSIDE RECORDS SUMMARY | 2022-05-27 12:08 | XMS_ITS | Encounter Summary ---
:1945 Author Organization [facility] Address [address] [place] [address] Care Team Providers Name Role Phone Ewa Alejandro M.D. Primary Care Provider [phone] Reason for Visit Reason Comments Bladder Cancer 6 month surveillance Encounter Details Date Type Department Care Team Description 11/23/2018 Procedure visit Department of Urology Prasanna Bernal, Cancer Bladder in [place] Personal History [place] [address] [place] [phone] Social History Tobacco Use Types Packs/Day [...] do you attend caodaism or Never 2021 rastafari services? Do you [...] Comments Blood Pressure 150/70 11/23/2018 10:13 AM ASSOCIATE PROGRAMMER Pulse 75 11/23/2018 10:13 AM ASSOCIATE PROGRAMMER Temperature 37 ??C (98.6 ??F) 11/23/2018 10:13 AM ASSOCIATE PROGRAMMER Respiratory Rate - - Oxygen Saturation - [...] Prasanna Bernal M.D. 11/23/18 10:42 AM ?? CIATE PROGRAMMER documented in this encounter Plan of Treatment Not on filedocumented as of this encounter Procedures Procedure Name Priority Date/Time Associated Diagnosis Comme nts CYTOLOGY NON-BURNING SUPERVISOR Routine 11/23/2018 11:01 AM Cancer Bladder Re sults for this ASSOCIATE PROGRAMMER Personal History procedure a re in the results section. documented in this encounter Results (ABNORMAL) Cytology Non-BURNING SUPERVISOR (Scheduled) (05/17/2019 8:53 AM CDT) Component Value Ref Test Analysis Performed At [facility] Range Method Time Signature Gross Description [...] Phon e Number [facility] [address] [place] [address] CYTOLOGY Cytology Non-BURNING SUPERVISOR (11/23/2018 11:01 AM ASSOCIATE PROGRAMMER) Component Value Ref Test Analysis Performed At [facility] Range Method Time Signature Gross Description Received 60 11/24/2018 [facility] IC ml of yellow 10:04 AM HEALTH alcohol fixed [facility] fluid [place] [facility] Collection void 11/24/2018 [facility] Procedure 10:04 AM [facility] CYTOLOGY Fixative 50% alcohol 11/24/2018 [facility] 10:04 AM [facility] CYTOLOGY Source A. Urine, 11/24/2018 [facility] voided 10:04 AM [facility] CYTOLOGY Clinical History bladder 11/24/2018 [facility] cancer 10:04 AM [facility] CYTOLOGY Report Brady Goodrich MD 11/24/2018 [facility] electronically I verify that I have examined all relevant slides/ma terials 10:04 AM HEALTH signed by for the specimen(s) and rendered or confirmed the diagnosi s. [facility] CYTOLOGY 11/24/2018 [facility] 10:04 AM [facility] CYTOLOGY Interpretation A. Urine, voided (cytospin): Negative for High-Grade 11/24/2018 [facility] Urothelial Carcinoma. 10:04 AM [facility] CYTOLOGY Specimen Anatomical Collection Method Collection Time Receive d Time (Source) Location / / Volume Laterality Varies 11/23/2018 11:01 11/24/2018 8:17 AM [facility] Narrative This result has an attachment that is no t available. Prasanna Bernal M.D. LAB SURG PATH ORDERABLES Performing Organization Address City/State/ZIP Code Phon e Number [facility] [address] [place] [address] CYTOLOGY documented in this encounter Visit Diagnoses Diagnosis Personal History Of Malignant Neoplasm O f Bladder documented in this encounter Additional Health Concerns Assessment Noted Time PHQ-9 Depression Total Score: 18 04/28/2018 11:27 AM C DT documented as of this encounter Care Teams Warp Knit Operator Relationship Specialty Start Date End Date Ewa Alejandro M.D. PCP - General 03/13/17 01/09/[address] [phone] documented as of this encounter
--- OUTSIDE RECORDS SUMMARY | 2022-05-27 12:08 | XMS_ITS | Encounter Summary ---
:1945 Author Organization [facility] Address [address] [place] [address] Care Team Providers Name Role Phone Ewa Alejandro M.D. Primary Care Provider [phone] Encounter Details Date Type Department Care Team Description 08/27/2018 Orders Only Division of Anjelica Bell, Diabetes Maria Ines litus Type Endocrinology in PADDING GLUER, C.N.P., 2 Hypergly cemia ([facility] (Primary Dx) [address] [facility] [address] [place] [address] [place], [place] [phone] Social History Tobacco Use Types Packs/Day Years [...] do you attend denominational or Never 2021 jew services? Do you [...] documented as of this encounter Care Teams Sorting Livestock Worker Relationship Specialty Start Date End Date Ewa Alejandro M.D. PCP - General 03/13/17 01/09/[address] [place] [phone] documented as of this encounter
--- OUTSIDE RECORDS SUMMARY | 2022-05-27 12:08 | XMS_ITS | Encounter Summary ---
:1945 Author Organization [facility] Address [address] [place] [address] Care Team Providers Name Role Phone Ewa Alejandro M.D. Primary Care Provider [phone] Reason for Referral Outpatient (Routine) - Closed Specialty Diagnoses / Procedures Referred By Contact Refer red To Contact Diagnoses Diarrhea Persistent Unexplained Emil Zurita M.D. [facility] Procedures Colonoscopy [address] [place] [address] Referral ID Status Reason Start Date Expiration Date Visits Requ ested Visits Authorized [id number] Closed 07/27/2018 07/27/2019 1 1 UNITY LIFE DIRECTOR Outpatient (Routine) - Closed Specialty Diagnoses / Procedures Referred By Contact Refer red To Contact Diagnoses Diarrhea Persistent Unexplained Emil Zurita M.D. [facility] Procedures EUS [address] [place] [address] Referral ID Status Reason Start Date Expiration Date Visits Requ ested Visits Authorized [id number] Closed 07/27/2018 07/27/2019 1 1 UNITY LIFE DIRECTOR Outpatient (Routine) - Closed Specialty Diagnoses / Procedures Referred By Contact Refer red To Contact Diagnoses Diarrhea Persistent Unexplained Emil Zurita M.D. [facility] Procedures EGD [address] [place] [address] Referral ID Status Reason Start Date Expiration Date Visits Requ ested Visits Authorized [id number] Closed 07/27/2018 07/27/2019 1 1 UNITY LIFE DIRECTOR Reason for Visit Outpatient (Routine) - Closed Specialty Diagnoses / Procedures Referred By Contact Refer red To Contact Diagnoses Diarrhea Persistent Unexplained Emil Zurita M.D. [facility] Procedures EGD [address] [place] [address] Referral ID Status Reason Start Date Expiration Date Visits Requ ested Visits Authorized [id number] Closed 07/27/2018 07/27/2019 1 1 Encounter Details Date Type Department Care Team Description 08/19/2018 Hospital Division of Jeovany Zurita M.D. [address] [place] [phone] Diarrhea Encounter Gastroenterology in Chad Jenkins W, MEDICAL REIMBURSEMENT SPECIALIST, RECRUITMENT INTERNSHIP, DNAP [address] [place] [phone] Persistent [place], [place] Unexplained [address] [place] [address] Social History Tobacco Use Types Packs/Day [...] do you attend protestant or Never 2021 samaritan services? Do you [...] Comments Blood Pressure 138/71 08/19/2018 9:45 AM COMMUNITY LIFE DIRECTOR Pulse 77 08/19/2018 9:45 AM COMMUNITY LIFE DIRECTOR Temperature 36.6 ??C (97.9 ??F) 08/19/2018 9:28 AM COMMUNITY LIFE DIRECTOR Respiratory Rate 26 08/19/2018 9:45 AM COMMUNITY LIFE DIRECTOR Oxygen Saturation 96% 08/19/2018 9:45 AM COMMUNITY LIFE DIRECTOR Inhaled Oxygen Concentration - - Weight 103 kg (227 lb 11.2 oz) 08/19/2018 7:30 AM COMMUNITY LIFE DIRECTOR Height 188 cm (6' 2.02) 08/19/2018 7:30 AM COMMUNITY LIFE DIRECTOR Body Mass Index 29.22 08/19/2018 7:30 AM COMMUNITY LIFE DIRECTOR documented in this encounter Discharge Instructions AttachmentsThe following attachments cannot be sent through Care Everywhere. About Your Colonoscopy (Iranian)About Your Upper Endoscopy (Iranian)documented in this encounter Medications at Time of Discharge Medication Sig Dispensed Refills Start Date End Date atorvastatin (for_LIPITOR) Take 80 mg by mouth 0 80 mg tablet daily. escitalopram (LEXAPRO) 10 Take 1 tablet (10 30 tablet 11 mg tablet mg total) by mouth daily. blood sugar diagnostic Reports checking 0 strips 4-5 times daily. clopidogreL (PLAVIX) 75 mg Take 1 tablet by 0 09/2015 tablet mouth daily. PEN NEEDLE, DIABETIC MISC Yani Fine 30 0 disposable needles. For use with Insulin Pens, 4 times daily SYRINGE-NEEDLE,INSULIN,0.5 0 ML (INSULIN SYRINGE MISC) insulin aspart (NovoLOG) Inject 20 Units 0 201409/18/2018 100 unit/mL injection under the skin 3 (three) times a day before meals. insulin glargine (LANTUS) Inject 20 Units 0 01/3105/06/2020 100 unit/mL injection under the skin at bedtime. metFORMIN (GLUMETZA) 1,000 Take 1 tablet 180 [...] tablet mg total) by mouth daily. insulin NPH and regular LW Addl 0 [...] 08/19/2018 8:25 AM Res ults for this COMMUNITY LIFE DIRECTOR procedure are i n the results section. BACTERIAL CULTURE, Routine 08/19/2018 8:22 AM Res ults for this AEROBIC + SUSC COMMUNITY LIFE DIRECTOR procedure are in the results section. BACTERIAL CULTURE, Routine 08/19/2018 8:22 AM Res ults for this ANAEROBIC + SUSC COMMUNITY LIFE DIRECTOR procedure a re in the results section. COLONOSCOPY Routine 08/19/2018 7:46 AM Diarrhea Persistent Re sults for this COMMUNITY LIFE DIRECTOR Unexplained procedure are i n the results section. COLONOSCOPY Routine 08/19/2018 7:46 AM Diarrhea Persistent COMMUNITY LIFE DIRECTOR Unexplained UPPER EUS Routine 08/19/2018 7:46 AM Diarrhea Persistent Re sults for this COMMUNITY LIFE DIRECTOR Unexplained procedure are i n the results section. ENDOSCOPIC Routine 08/19/2018 7:46 AM Diarrhea Persistent ULTRASOUND (EUS) COMMUNITY LIFE DIRECTOR Unexplained documented in this encounter Results Surgical Pathology (08/19/2018 8:25 AM COMMUNITY LIFE DIRECTOR) Component Value Ref Test Analysis Performed At [facility] Range Method Time Signature Gross Description A: ?? Received in formalin labeled with the patie nt's name, 08/21/2018 [facility] medical record number, and duodenum-second part duodenum 12:38 PM LABORATORIES - are seven pale samson-pink irregular soft tissue fragments, COMMUNITY LIFE DIRECTOR [facility] MAIN ranging from 0.1-0.4 cm in [...] cassette E1. Grossed by Eric Parish M.D. [phone] [facility] electronically I verify that I have examined all relevant slides/ma terials 12:38 PM LABORATORIES - signed by for the specimen(s) and rendered or confirmed the diagnosi s. [facility] 08/21/2018 [facility] 12:38 PM LABORATORIES - [facility] Interpretation FINAL DIAGNOSIS 08/21/2018 [facility] A. Duodenum, 2nd part duodenum, endoscopic biopsy: 12:38 PM LABORATORIES - Duodenal mucosa with healing erosion and foveolar [facility]. ??No evidence of celiac disease, [facility] [...] Volume Laterality Biopsy (Duodenum) 08/19/2018 8:25 AM COMMUNITY LIFE DIRECTOR Biopsy (Ileum) 08/19/2018 8:57 AM COMMUNITY LIFE DIRECTOR Polyp (Colon) 08/19/2018 9:01 AM COMMUNITY LIFE DIRECTOR Biopsy (Colon) 08/19/2018 9:04 AM COMMUNITY LIFE DIRECTOR Biopsy (Colon) 08/19/2018 9:05 AM COMMUNITY LIFE DIRECTOR Narrative This result has an attachment that is no t available. Dhiraj Albarran M.D. LAB SURG PATH ORDERABLES Performing Organization Address [facility]/ZIP Code Phon e Number [facility] LABORATORIES - [address] [place] [address] [address] Bacterial Culture, Aerobic + Susc (08/19/2018 8:22 AM COMMUNITY LIFE DIRECTOR) [facility] Method Time Signature Bacterial No growth of 08/21/2018 [facility] Culture, aerobic gram 10:52 AM COMMUNITY LIFE DIRECTOR LABORATORIES - Aerobic + negative [facility] bacillus or CAMPUS yeast Specimen (Source) Anatomical Collection Method Collection Time Re ceived Time Location / / Volume Laterality Aspirate 08/19/2018 8:22 AM (Duodenum) COMMUNITY LIFE DIRECTOR Dhiraj Albarran M.D. LAB MICROBIOLOGY - GENERAL O RDERABLES Performing Organization Address City/[facility]/ZIP Code Phon e Number [facility] LABORATORIES - [address] [place] [address] [address] Bacterial Culture, Anaerobic + Susc (08/19/2018 8:22 AM COMMUNITY LIFE DIRECTOR) [facility] Method Time Signature Bacterial Total intestinal surekha (anaerobic and/or aerobic) 08/21/2018 [facility] Culture, >100,000 cfu/mL 7:45 AM COMMUNITY LIFE DIRECTOR LABORATORIES - Anaerobic + [facility] CAMPUS Specimen (Source) Anatomical Collection Method Collection Time Re ceived Time Location / / Volume Laterality Aspirate 08/19/2018 8:22 AM (Duodenum) COMMUNITY LIFE DIRECTOR Dhiraj Albarran M.D. LAB MICROBIOLOGY - GENERAL O RDERABLES Performing Organization Address City/[facility]/ZIP [facility] Phon e Number [facility] LABORATORIES - [address] [place] [address] [address] Colonoscopy (08/19/2018 7:46 AM COMMUNITY LIFE DIRECTOR) Specimen (Source) Anatomical Collection Method Collection Time Re ceived Time Location / / Volume Laterality 08/19/2018 7:46 AM COMMUNITY LIFE DIRECTOR Impressions [facility] 08/19/2018 9:16 AM COMMUNITY LIFE DIRECTOR Post-op Diagnoses: ? - One 5 mm polyp in the ascending colon, removed with a cold snare. ? Resected and retrieved. ? - The examination was otherwise n ormal on direct and retroflexion views. ? - Biopsies were taken with a cold forceps for histology in the entire ? colon and in the terminal ileum. Narrative [facility] - 08/19/2018 9:16 AM COMMUNITY LIFE DIRECTOR [place] 2 GI Patient Name: Jonnathan Costa [...] Address City/State/ZIP Code Phon e Number [facility] NA Upper EUS (08/19/2018 7:46 AM COMMUNITY LIFE DIRECTOR) Specimen (Source) Anatomical Collection Method Collection Time Re ceived Time Location / / Volume Laterality 08/19/2018 7:46 AM COMMUNITY LIFE DIRECTOR Impressions [facility] - 08/19/2018 9:20 AM COMMUNITY LIFE DIRECTOR Post-op Diagnoses: ? - Normal esophagus. ? [...] ? features, nor high rigk stigmata. Narrative [facility] - 08/19/2018 9:20 AM COMMUNITY LIFE DIRECTOR Gonda 2 GI Patient Name: Jonnathan Costa [...] Address City/State/ZIP Code Phon e Number [facility] NA documented in this encounter Visit Diagnoses Diagnosis Diarrhea Persistent Unexplained documented in this encounter Additional Health Concerns Assessment Noted Time PHQ-9 Depression Total Score: 18 04/28/2018 11:27 AM C DT documented as of this encounter Care Teams Stock Feeder Relationship Specialty Start Date End Date Ewa Alejandro M.D. PCP - General 03/13/17 01/09/[address] [place] [phone] documented as of this encounter
--- OUTSIDE RECORDS SUMMARY | 2022-05-27 12:08 | XMS_ITS | Encounter Summary ---
:1945 Author Organization [facility] Address [address] [place] [address] Care Team Providers Name Role Phone Ewa Alejandro M.D. Primary Care Provider [phone] Encounter Details Date Type Department Care Team Description 08/19/2018 Anesthesia Event Division of Chad Cole, Gastroenterology in [facility], [facility], [place], [place] [address] [facility] [address] [place] [phone] Anesthesia Record Procedure Summary Procedure Name Responsible Anesthesia Start Anesthesia Stop Time Anesthesiologist Time EGD Chad Cole, SHEEP HERDER, 08/19/18 0800 08/19/18 0930 (ESOPHAGEALGASTRODU [facility], [facility] ODENOSCOPY) Events Date Time Event Comment 08/19/2018 [...] h andoff to the receiving staff during [facility] ch we 1. Identified the patient 2. [...] Mayer APRN, SWEETIE, Time: 807 (created via [facility] procedure documentation); Mask Ventilation: Easy mask; Type: [...] do you attend religious or Never 2021 shinto services? Do you [...] Room / Location: Division of Gastroenterology in [place], [place] Anesthesia Start: 0800 Anesthesia Stop: 929 [...] none Anesthesia observations: refractory nausea and vomiting GER EPIC Anesthesia Procedure Notes - Chad Cole APRN, [...] Procedure outcome: successful Airway event: no complications [facility] Anesthesia Preprocedure Evaluation - Sebas Ying III, [...] patient / legal guardian, or through an electric motor assembler; patient evaluated and approved for anesthesia / sedation. The use of blood products not discussed GER EPIC documented in this encounter Plan of Treatment Not on filedocumented as of this encounter Procedures Procedure Name Priority Date/Time Associated Comments Diagnosis LDA ANE ENDOTRACHEAL Routine 08/19/2018 8:22 AM R esults for this AIRWAY MANAGER EPIC procedure are i n the results section. documented in this encounter Results LDA ANE ENDOTRACHEAL AIRWAY (08/19/2018 8:22 AM MANAGER EPIC) Narrative Chad Cole APRN, CRNA - 08/19/2018 8:22 AM MANAGER EPIC Chad Cole APRN, CRNA ? 08/19/2018 ??8:22 [...] ePHEDrine (PF) injection Given 08/19/2018 8:30 AM MANAGER EPIC 10 mg intravenous, As needed, Starting on Fri08/19/18 at 0830, Anesthesia Intra-op fentaNYL injection (SUBLIMAZE) Given 08/19/2018 8:45 AM MANAGER EPIC 50 mcg intravenous, As needed, severe pain or score 7-10 of 10, Starting on Fri08/19/18 at 0805, Anesthesia Intra-op Given 08/19/2018 8:14 AM MANAGER EPIC 50 mcg Given 08/19/2018 8:08 AM MANAGER EPIC 50 mcg lactated ringers New Bag 08/19/2018 9:12 AM MANAGER EPIC intravenous, Continuous Infusion: Per Instructions PRN, Starting on Fri08/19/18 at 0800, Anesthesia Intra-op New Bag 08/19/2018 8:00 AM MANAGER EPIC lidocaine (PF) (cardiac) injection Given 08/19/2018 8:05 AM MANAGER EPIC 100 mg intravenous, As needed, Starting on Fri08/19/18 at 0805, Anesthesia Intra-op ondansetron (PF) injection (ZOFRAN) Given 08/19/2018 8:05 AM MANAGER EPIC 4 mg intravenous, As needed, nausea, vomiting, Starting on Fri08/19/18 at 0805, Anesthesia Intra-op propofol 10 mg/mL infusion Rate/Dose 08/19/2018 8:45 75 mcg/kg/min 4 6.5 mL/hr (DIPRIVAN) Change AM MANAGER EPIC Continuous Infusion: Per Instructions PRN, Starting on Fri08/19/18 at 0807, Anesthesia Intra-op Rate/Dose Change 08/19/2018 8:24 AM MANAGER EPIC 100 mcg/kg/min 62 mL/hr Rate/Dose Change 08/19/2018 8:12 AM MANAGER EPIC 125 mcg/kg/min 77.5 mL/hr propofol injection (DIPRIVAN) Given 08/19/2018 8:45 AM MANAGER EPIC 50 mg intravenous, As needed, Starting on Fri08/19/18 at 0806, Anesthesia Intra-op Given 08/19/2018 8:16 AM MANAGER EPIC 30 mg Given 08/19/2018 8:14 AM MANAGER EPIC 50 mg rocuronium injection (ZEMURON) Given 08/19/2018 8:15 AM MANAGER EPIC 30 mg As needed, Starting on Fri08/19/18 at 0815, Anesthesia Intra-op succinylcholine-0.9% NaCl (PF) injection Given 08/19/2018 8:06 A M MANAGER EPIC 100 mg (ANECTINE) intravenous, As needed, Starting on Fri08/19/18 at 0806, Anesthesia Intra-op sugammadex injection (BRIDION) Given 08/19/2018 9:07 AM MANAGER EPIC 200 mg As needed, Starting on Fri08/19/18 at 0907, Anesthesia Intra-op documented in this encounter Additional Health Concerns Assessment Noted Time PHQ-9 Depression Total Score: 18 04/28/2018 11:27 AM C DT documented as of this encounter Care Teams Lean Sensei Relationship Specialty Start Date End Date Ewa Alejandro M.D. PCP - General 6/15/17 [address] [place] [address] documented as of this encounter
--- OUTSIDE RECORDS SUMMARY | 2022-05-27 12:08 | XMS_ITS | Encounter Summary ---
:1945 Author Organization [facility] Address [address] [place] [address] Care Team Providers Name Role Phone Ewa Alejandro M.D. Primary Care Provider [phone] Reason for Visit Reason Onset Date Comments telephone call to patient 10/05/2018 Raven Sterling CNP/[place] Encounter Details Date Type Department Care Team Description 10/05/2018 Clinical Division of [place], telephone call to Communication Endocrinology in [place], patient (S [place], [place] R.N., [facility] [place], [address] [place]onna) [place] [address] [phone] Social History Tobacco Use Types Packs/Day Years [...] you attend jehovah's witness or Never 2021 latter day services? Do [...] 3 pm Contact patient by:telephone Phone number: [phone] Thank you, Keyonna for the nurses PLEASE REPLY TO THE SECRETARIAL POOL WHEN REPLYING TO THIS MESSAGE--p RST END MARIAMA BAINS. Thank you! PRESS OPERATOR HELPER documented in this encounter Plan of Treatment Not on filedocumented as of this encounter Visit Diagnoses Not on filedocumented in this encounter Additional Health Concerns Assessment Noted Time PHQ-9 Depression Total Score: 18 04/28/2018 11:27 AM C DT documented as of this encounter Care Teams Dimensional Inspector Relationship Specialty Start Date End Date Ewa Alejandro M.D. PCP - General 03/13/17 01/09/[address] [address] documented as of this encounter
--- OUTSIDE RECORDS SUMMARY | 2022-05-27 12:08 | XMS_ITS | Encounter Summary ---
:1945 Author Organization [facility] Address [address] [place] [address] Care Team Providers Name Role Phone Ewa Alejandro M.D. Primary Care Provider [phone] Reason for Visit Reason Onset Date Comments scheduling AWV 10/07/2018 Encounter Details Date Type Department Care Team Description 10/07/2018 Clinical Communication Department of Anjana Glasgow scheduling AWV [facility], in [place] [address] [place] [address] Social History Tobacco Use Types [...] do you attend methodist or Never 2021 taoism services? Do you [...] is coming in tomorrow am to discuss. F OF PEDIATRIC UROLOGY documented in this encounter Plan of Treatment Not on filedocumented as of this encounter Visit Diagnoses Not on filedocumented in this encounter Additional Health Concerns Assessment Noted Time PHQ-9 Depression Total Score: 18 04/28/2018 11:27 AM C DT documented as of this encounter Care Teams Gas Furnace Installer Relationship Specialty Start Date End Date Ewa Alejandro M.D. PCP - General 03/13/17 01/09/[address] [phone] documented as of this encounter
--- OUTSIDE RECORDS SUMMARY | 2022-05-27 12:08 | XMS_ITS | Encounter Summary ---
:1945 Author Organization [facility] Address [address] [place] [address] Care Team Providers Name Role Phone Ewa Alejandro M.D. Primary Care Provider [phone] Encounter Details Date Type Department Care Team Description 09/21/2018 Documentation Division of Gastroenterology Ran Vilchis in [facility] [address] [place] [phone] Social History Tobacco Use Types Packs/Day Years [...] do you attend taoism or Never 2021 mosque services? Do you [...] documented as of this encounter Care Teams Skid Wrapper Relationship Specialty Start Date End Date Ewa Alejandro M.D. PCP - General 03/13/17 01/09/20 [address], [place] [address] documented as of this encounter
--- OUTSIDE RECORDS SUMMARY | 2022-05-27 12:08 | XMS_ITS | Encounter Summary ---
:1945 Author Organization [facility] Address [address] [place] [address] Care Team Providers Name Role Phone Ewa Alejandro M.D. Primary Care Provider [phone] Encounter Details Date Type Department Care Team Description 09/21/2018 Documentation Division of Gastroenterology Ran Vilchis in [facility] cameron [address] [place] [address] Social History Tobacco Use Types Packs/Day Years [...] do you attend mormon or Never 2021 religion services? Do you [...] documented as of this encounter Care Teams Mining Analyst Relationship Specialty Start Date End Date Ewa Alejandro M.D. PCP - General 03/13/17 01/09/20 [address], [place] [address] documented as of this encounter
--- OUTSIDE RECORDS SUMMARY | 2022-05-27 12:09 | XMS_ITS | Encounter Summary ---
:1945 Author Organization [facility] Address [address] [place] [address] Care Team Providers Name Role Phone Ewa Alejandro M.D. Primary Care Provider [phone] Encounter Details Date Type Department Care Team Description 06/22/2018 Clinical Communication Department of Family Kirill Torres [facility], [facility], in [place] [address] [place] [address] [phone] Social History Tobacco Use Types Packs/Day Years [...] do you attend caodaism or Never 2021 baptist services? Do you [...] documented as of this encounter Care Teams District Sales Coordinator Relationship Specialty Start Date End Date Ewa Alejandro M.D. PCP - General 03/13/17 01/09/20 [address] [address] documented as of this encounter
--- OUTSIDE RECORDS SUMMARY | 2022-05-27 12:09 | XMS_ITS | Encounter Summary ---
:1945 Author Organization [facility] Address [address] [place] [address] Care Team Providers Name Role Phone Piero Alejandro M.D. Primary Care Provider [phone] Reason for Referral Outpatient (Routine) - Closed Specialty Diagnoses / Referred By Referred To Cont act Procedures Contact Gastroenterology and Diagnoses Diarrhea Nausea Pancreatitis Chronic (HCC) [facility] Hepatology Piero walton M.D. [address] [place] [address] Referral ID Status Reason Start Date Expiration Date Visits V isits Requested Authorized [id number] Closed Specialty 06/18/2018 06/18/2019 1 1 Services Required Encounter Details Date Type Department Care Team Description 06/18/2018 Clinical Communication Department of [facility] Carlos, LMauroPJustina [facility], in [place], [address] [address] [place], [place] [phone] [address] (Work) [phone] Social History Tobacco Use Types Packs/Day Years [...] do you attend amish or Never 2021 roman catholic services? Do you belong to any clubs or No 10/09/2021 organizations such as amish groups, unions, fraModabound or athletic groups, or school groups? How [...] documented as of this encounter Care Teams Protocol Officer Relationship Specialty Start Date End Date Piero Alejandro M.D. PCP - General 03/13/17 01/09/20 [address] [place] [address] documented as of this encounter
--- OUTSIDE RECORDS SUMMARY | 2022-05-27 12:09 | XMS_ITS | Encounter Summary ---
:1945 Author Organization [facility] Address [address] [place] [address] Care Team Providers Name Role Phone Ewa Alejandro M.D. Primary Care Provider [phone] Reason for Referral MRI/CAT/PET Scan (Routine) - Closed Specialty Diagnoses / Procedures Referred By Contact Refer red To Contact Radiology Diagnoses Diarrhea Dilation Pancreatic Duct Stone Pancreatic Duct Pancreatitis Chronic (HCC) Emil Zurita M.D. [facility] Procedures CT Abdomen Pelvis with IV Contrast CT Abdomen Pelvis without and with IV Contrast IL CT ABD&PELVIS WO/W CNTRST HC CT ABD&PELVIS WO/W CNTRST IL CT ABD&PELVIS WO/W CNTRST IL CT ABD&PELVIS W CNTRST HC CT ABD&PELVIS W CNTRST [address] [facility] [place] CT ABD&[place] [address] Referral ID Status Reason Start Date Expiration Date Visits Requ ested Visits Authorized [id number] Closed 07/10/2018 07/10/2019 1 1 Outpatient (Routine) - Closed Specialty Diagnoses / Referred By Referred To Cont act Procedures Contact Gastroenterology and Diagnoses Diarrhea Dilation Pancreatic Duct Stone Pancreatic Duct Pancreatitis Chronic (HCC) Emil Zurita [facility] Hepatology [place] [address] [place] [address] Referral ID Status Reason Start Date Expiration Date Visits Requ ested Visits Authorized [id number] Closed 07/10/2018 07/10/2019 1 1 Scheduling Instructions Return after CT scan, and 48 hour stool test Reason for Visit Reason Comments Stool test diarrhea Pancreas Encounter Details Date Type Department Care Team Description 07/10/2018 Clinical Division of Parminder, Stool test Communication Gastroenterology in [facility], (diarrh ea); [place], [place] Pato Pancreas [address] [place] [address] [place] [address] Social History Tobacco Use Types Packs/Day Years [...] do you attend methodist or Never 2021 mandaen services? Do you [...] would like to pickup the container in [place]. Disposition/Recommendation: self-care appropriate at this time 07/10/2018. [...] Creatinine with Estimated GFR (08/19/2018 1:16 PM BOX PRINTER) Analysis Performed At Patho logist Time Signature Creatinine 1.04 0.74 - 08/19/2018 [facility] 1.35 mg/dL 2:27 PM BOX PRINTER LAB[facility]ATORIES - [facility] eGFR-Non 70 >=60 08/19/2018 [facility] Black/ mL/min/BSA 2:27 PM BOX PRINTER LAB[facility] - [facility] Comment: ----ADDITIONAL INFORMATION---- Estimated GFR calculated using the 2009 CKD_EPI creatinine equation. eGFR-Black/ 81 >=60 mL/min/BSA 08/19/2018 2:27 [facility] Malagasy BOX PRINTER [facility] - [facility] Comment: ----ADDITIONAL INFORMATION---- Estimated GFR calculated using the 2009 CKD_EPI creatinine equation. Specimen Anatomical Collection Method Collection Time Receive d Time (Source) Location / / Volume Laterality Blood (Blood, 08/19/2018 1:16 PM 08/19/20 18 1:43 Venous) BOX PRINTER PM BOX PRINTER Emil Zurita M.D. LAB BLOOD ADD-ON Performing Organization Address City/State/ZIP Code Phon e Number [facility]IES - [address] [id number] [address] [facility] [address] Abdomen Pelvis with IV Contrast (08/19/2018 12:43 PM BOX PRINTER) Anatomical Region Laterality Modality Abdomen, Pelvis, Abdominal RST LOS, Abdominal ARZ LOS, N/A Computed Tomography Abdominal FLA LOS Specimen (Source) Anatomical Collection Method Collection Time Re ceived Time Location / / Volume Laterality 08/19/2018 1:29 PM BOX PRINTER Impressions 08/19/2018 1:48 PM BOX PRINTER IMPRESSION: ?? 1. Chronic calcific pancreatitis. Narrative 08/19/2018 1:48 PM BOX PRINTER EXAM: ??CT ABDOMEN PELVIS WITH IV CONTRAST [...] in course and calibe r. There is [id number] arthrosclerotic calcification of the aor ta and [...] in course and calibe r. There is otpp-vj-ggkfrsgi arthrosclerotic calcification of the aor ta and [...] Bile Acids, % 0.0 <=3.7 % 07/16/2018 [facility] CDCA + CA total 12:16 PM CDT [facility] - [facility] Total Bile 138 <=2619 07/16/2018 [facility] Acids mcmol/48h 12:16 PM CDT [facility]ATOR[facility] - [facility] Comment: ----ADDITIONAL INFORMATION---- This test was developed and its performa nce characteristics determined by [facility] in a manner consistent with CLIA [...] Address City/State/ZIP Code Phon e Number [facility]IES - [address] [place], [place] [address] [facility] documented in this encounter Visit Diagnoses Diagnosis Diarrhea - Primary Dilation Pancreatic Duct Stone Pancreatic Duct Pancreatitis Chronic (HCC) Diarrhea Dilation Pancreatic Duct Stone Pancreatic Duct Pancreatitis Chronic (HCC) documented in this encounter Additional Health Concerns Assessment Noted Time PHQ-9 Depression Total Score: 18 04/28/2018 11:27 AM C DT documented as of this encounter Care Teams Electric Meter Tester Helper Relationship Specialty Start Date End Date Ewa Alejandro M.D. PCP - General 03/13/17 01/09/[address] [address] documented as of this encounter
--- OUTSIDE RECORDS SUMMARY | 2022-05-27 12:09 | XMS_ITS | Encounter Summary ---
:1945 Author Organization [facility] Address [address] [place] [address] Care Team Providers Name Role Phone Ewa Alejandro M.D. Primary Care Provider [phone] Encounter Details Date Type Department Care Team Description 07/10/2018 Hospital Encounter Department of Laboratory Emil Zurita, [facility], [facility], in [place], [address] [place] [address] [address] [facility] [address] [place] [address] [phone] Social History Tobacco Use Types Packs/Day Years [...] do you attend temple or Never 2021 sikh services? Do you [...] documented as of this encounter Care Teams Can Reforming Machine Operator Relationship Specialty Start Date End Date Ewa Alejandro M.D. PCP - General 03/13/17 01/09/20 [address] [place] [address] documented as of this encounter
--- OUTSIDE RECORDS SUMMARY | 2022-05-27 12:09 | XMS_ITS | Encounter Summary ---
:1945 Author Organization [facility] Address [address] [place] [address] Care Team Providers Name Role Phone Ewa Alejandro M.D. Primary Care Provider [phone] Encounter Details Date Type Department Care Team Description 05/08/2018 Orders Only Department of [facility] Santhosh Whatley (Primary Dx) Medicine, [place] Ewa stephen M.D. [facility], in [facility] [address] [place], [place] 300 [facility] [place] [address] [place], [place] [phone] [address] (Work) [phone] Social History Tobacco Use Types Packs/Day Years [...] do you attend mormon or Never 2021 catholic services? Do you [...] documented as of this encounter Care Teams Dna Analyst Relationship Specialty Start Date End Date Ewa Alejandro M.D. PCP - General 03/13/17 01/09/20 [address] [place] [address] documented as of this encounter
--- OUTSIDE RECORDS SUMMARY | 2022-05-27 12:09 | XMS_ITS | Encounter Summary ---
:1945 Author Organization [facility] Address [address] [place] [address] Care Team Providers Name Role Phone Ewa Alejandro M.D. Primary Care Provider [phone] Encounter Details Date Type Department Care Team Description 04/28/2018 Hospital Encounter Department of Lea [facility] Laboratory Medicine Ewa brunson, Type 2 (HCC) in [place] [address] [place] [address] Social History Tobacco Use Types Packs/Day [...] do you attend mosque or Never 2021 restoration services? Do you [...] Microalbumin, Random, Urine (04/28/2018 8:49 AM CDT) [facility] Method Time Signature Microalbumin 613.6 mg/L 04/28/2018 [facility] 2:46 PM CDT [facility] Creatinine 133 mg/dL 04/28/2018 [facility] 2:46 PM T [facility] Albumin/Creatinin 461 (H) <17 mg/g 04/28/2018 [facility] e Ratio 2:46 PM CDT [facility] Specimen Anatomical Collection Method Collection Time Receive d Time (Source) Location / / Volume Laterality Urine (Urine, 04/28/2018 8:49 AM 04/28/20 18 Clean Catch) CDT 10:59 AM CDT Ewa Alejandro M.D. LAB URINE ORDERABLES Performing Organization Address City/State/ZIP Code Phon e Number [facility] [address] [place] [address] LAB documented in this encounter Visit Diagnoses Diagnosis Diabetes Mellitus Type 2 (HCC) documented in this encounter Additional Health Concerns Assessment Noted Time PHQ-9 Depression Total Score: 18 04/28/2018 11:27 AM C DT documented as of this encounter Care Teams Bookkeeping Machine Operator Relationship Specialty Start Date End Date Ewa Alejandro M.D. PCP - General 03/13/17 01/09/200 [address], [place] [address] documented as of this encounter
--- OUTSIDE RECORDS SUMMARY | 2022-05-27 12:09 | XMS_ITS | Encounter Summary ---
:1945 Author Organization [facility] Address [address] [place] [address] Care Team Providers Name Role Phone Ewa Alejandro M.D. Primary Care Provider [phone] Encounter Details Date Type Department Care Team Description 07/02/2018 Ancillary Procedure Department of Kamala Zurita Personal Radiology in [place] History [place], [place] [address] [facility] [address] [place] [address] Social History Tobacco Use Types Packs/Day Years [...] do you attend yazidi or Never 2021 muslim services? Do you [...] documented as of this encounter Care Teams Bread Wrapper Relationship Specialty Start Date End Date Ewa Alejandro M.D. PCP - General 03/13/17 01/09/[address] [address] documented as of this encounter
--- OUTSIDE RECORDS SUMMARY | 2022-05-27 12:09 | XMS_ITS | Encounter Summary ---
:1945 Author Organization [facility] Address [address] [place] [address] Care Team Providers Name Role Phone Ewa Alejandro M.D. Primary Care Provider [phone] Reason for Visit Reason Onset Date Comments Follow-up 05/21/2018 nausea, vomiting and diarrhea Encounter Details Date Type Department Care Team Description 05/21/[address] [facility], [facility], Follow-up (ambrose hoffman, Communication Community Internal M.D. vomiting and Medicine in [address] diarrhea) Teresa Bryson, [facility] [address] [address] [place] [phone] [address] (Fax) [phone] Social History Tobacco Use Types Packs/Day Years [...] do you attend evangelical or Never 2021 taoism services? Do you [...] documented as of this encounter Care Teams Career Advisor Relationship Specialty Start Date End Date Ewa Alejandro M.D. PCP - General 03/13/17 01/09/[address] [address] documented as of this encounter
--- OUTSIDE RECORDS SUMMARY | 2022-05-27 12:09 | XMS_ITS | Encounter Summary ---
:1945 Author Organization [facility] Address [address] [place] [address] Care Team Providers Name Role Phone Ewa Alejandro M.D. Primary Care Provider [phone] Encounter Details Date Type Department Care Team Description 07/14/2018 Hospital Encounter Department of Jamaal Zurita ; Laboratory Medicine [place]oda Stein Dilation Pancreatic Duct (HCC); in [place], [address] [place] [address] Stone Pancreatic Duct (HCC); [place], [place] Pancreatitis Chronic (HCC) [address] [address] [place], [place] [phone] [address] (Work) [phone] Social History Tobacco Use Types Packs/Day Years [...] Time Signature Total Weight 280 g 07/18/2018 [facility] 11:07 AM CDT [facility] Duration 48 h 07/18/2018 [facility] 11:07 AM CDT [facility] Total Fat/24 10 (H) 2 - 7 g/24 07/18/2018 [facility] Hr h 12:23 PM CDT [facility] Comment: ----ADDITIONAL INFORMATION---- This test was developed and its performa nce characteristics determined by [facility] in a manner co nsistent with [...] Organization Address City/State/ZIP Code Phon e Number [facility]IES - [address] [place] [address] [facility] Bile Acids, Bowel Dysfunction, 48 Hour, Feces (07/13/2018 2:30 PM CDT) P athologist Signature Bile Acids, % 0.0 <=3.7 % 07/16/2018 [facility] CDCA + [place] total 12:16 PM CDT [facility] Total Bile 138 <=2619 07/16/2018 [facility] Acids mcmol/48h 12:16 PM CDT [facility] [place] Comment: ----ADDITIONAL INFORMATION---- This test was developed and its performa nce characteristics determined by [facility] in a manner consistent with CLIA [...] Organization Address City/State/ZIP Code Phon e Number [facility] - [address] [place], [place] [address] [facility] documented in this encounter Visit Diagnoses Diagnosis Diarrhea Dilation Pancreatic Duct Stone Pancreatic Duct Pancreatitis Chronic (HCC) documented in this encounter Additional Health Concerns Assessment Noted Time PHQ-9 Depression Total Score: 18 04/28/2018 11:27 AM C DT documented as of this encounter Care Teams Veneer Redrier Relationship Specialty Start Date End Date Ewa Alejandro M.D. PCP - General 03/13/17 01/09/[address] [place] [address] documented as of this encounter
--- OUTSIDE RECORDS SUMMARY | 2022-05-27 12:09 | XMS_ITS | Encounter Summary ---
:1945 Author Organization [facility] Address [address] [place] [address] Care Team Providers Name Role Phone Ewa Alejandro M.D. Primary Care Provider [phone] Encounter Details Date Type Department Care Team Description 07/10/2018 Orders Only Division of Gastroenterology in [place], [place] [address] [facility] [address] [place] [address] [place], [place] [phone] [address] (Wo rk) Social History Tobacco Use Types [...] do you attend anglican or Never 2021 orthodox services? Do you [...] as of this encounter Care Teams Oil Field Laborer Relationship Specialty Start Date End Date Ewa Alejandro M.D. PCP - General 03/13/17 01/09/20 [address], [place] [address] documented as of this encounter
--- OUTSIDE RECORDS SUMMARY | 2022-05-27 12:09 | XMS_ITS | Encounter Summary ---
:1945 Author Organization [facility] Address [address] [place] [address] Care Team Providers Name Role Phone Ewa Alejandro M.D. Primary Care Provider [phone] Encounter Details Date Type Department Care Team Description 06/22/2018 Clinical Communication Department of Anjana Boateng, Medicine, [place] [facility], [facility], [address] [place], [place] 300 [facility] [address] [place], [place] [phone] [address] (Work) [phone] Social History Tobacco Use Types Packs/Day Years [...] do you attend voodoo or Never 2021 muslim services? Do you [...] 06/22/2018 2:02 PM CDT Patient seen at [facility] pharmacy for medication review related to recent hospitalization for chronic diarrhea with nausea and vomiting. Per pharmacist recommendation please change patients medication metforman 1000 mg bid to metforman ER 1000 mg bid and fax new prescription for 90 day supply to [facility] is recommendation is approved. Patient also requesting to be updated on prescription status documented in this encounter Plan of Treatment Not on filedocumented as of this encounter Visit Diagnoses Not on filedocumented in this encounter Additional Health Concerns Assessment Noted Time PHQ-9 Depression Total Score: 18 04/28/2018 11:27 AM C DT documented as of this encounter Care Teams Employee Relation Manager Relationship Specialty Start Date End Date Ewa Alejandro M.D. PCP - General 03/13/17 01/09/20 [address], [place] [address] documented as of this encounter
--- OUTSIDE RECORDS SUMMARY | 2022-05-27 12:09 | XMS_ITS | Encounter Summary ---
:1945 Author Organization [facility] Address [address] [place] [address] Care Team Providers Name Role Phone Ewa Alejandro M.D. Primary Care Provider [phone] Encounter Details Date Type Department Care Team Description 07/17/2018 Hospital Encounter Department of Jamaal Zurita ; Laboratory Medicine Rhoda Stein Dilation Pancreatic Duct (HCC); in [place], [address] [place] [address] Stone Pancreatic Duct (HCC); [place], [place] Pancreatitis Chronic (HCC) [address] [address] [place], [place] [phone] (Work) [phone] Social History Tobacco Use Types Packs/Day Years [...] do you attend jainism or Never 2021 islam services? Do you [...] documented as of this encounter Care Teams Trapper Animal Relationship Specialty Start Date End Date Ewa Alejandro M.D. PCP - General 03/13/17 01/09/20 [address], [place] [address] documented as of this encounter
--- OUTSIDE RECORDS SUMMARY | 2022-05-27 12:09 | XMS_ITS | Encounter Summary ---
:1945 Author Organization [facility] Address [address] [place] [address] Care Team Providers Name Role Phone Ewa Alejandro M.D. Primary Care Provider [phone] Encounter Details Date Type Department Care Team Description 07/16/2018 Clinical Communication Division of Bobbi Preston Gastroenterology in [place], [place] [address] [facility] [address] [place] [address] Social History Tobacco Use Types Packs/Day Years [...] do you attend alevism or Never 2021 jehovah's witness services? Do [...] as of this encounter Care Teams Marine Service Manager Relationship Specialty Start Date End Date Ewa Alejandro M.D. PCP - General 03/13/17 01/09/[address] [address] documented as of this encounter
--- OUTSIDE RECORDS SUMMARY | 2022-05-27 12:09 | XMS_ITS | Encounter Summary ---
:1945 Author Organization [facility] Address [address] [place] [address] Care Team Providers Name Role Phone Ewa Alejandro M.D. Primary Care Provider [phone] Reason for Visit Reason Onset Date Comments Colonoscopy 07/01/2018 Encounter Details Date Type Department Care Team Description 07/01/2018 Clinical Communication Division of Jhonny Zuritaopy Gastroenterology in Rhoda Stein [place], [place] [address] [facility] [address] [place] [address] [phone] Social History Tobacco Use Types Packs/Day Years [...] do you attend christianity or Never 2021 roman catholic services? Do [...] as of this encounter Care Teams Ceramic Capacitor Processor Relationship Specialty Start Date End Date Ewa Alejandro M.D. PCP - General 03/13/17 01/09/20 [address] [place] [address] documented as of this encounter
--- OUTSIDE RECORDS SUMMARY | 2022-05-27 12:09 | XMS_ITS | Encounter Summary ---
:1945 Author Organization [facility] Address [address] [place] [address] Care Team Providers Name Role Phone Ewa Alejandro M.D. Primary Care Provider [phone] Reason for Visit Reason Comments Diarrhea complains of vomitting, diar jing, fatigue, and headaches since September - would like a 2nd opinion - h as been seeing Dr. Lawson for this Appointment Request (Routine) - Closed Specialty Diagnoses / Procedures Referred By Contact Refer red To Contact Community Internal [facility] Referral ID Status Reason Start Date Expiration Date Visits Requ ested Visits Authorized [id number] Closed 05/11/2018 05/11/2019 1 1 Encounter Details Date Type Department Care Team Description 05/12/2018 Office Visit Department of Azeem Martino M.D . Nausea And Vomiting (Primary Dx); Community [facility] [address], [place]; Medicine in [place] [address] Fatigue; [place], [place], [place] Headache; [address] [address] Pancreatitis Chronic Recurrent (HCC); [facility] Reaction Drug Adverse Initial; [id number] Diabetes Mellitus Type 2 Wit h Diabetic Neuropathy (HCC); [phone] Hypertension Es sential Primary; Stroke (HCC) Social [...] do you attend christian or Never 2021 anabaptist services? Do you [...] is managed by his clinical pharmacist at [place]. He has been taking Metformin since 1990. He thinks he was started on Victoza around this year. He checks his blood sugar 3-7 times a day. His mood and anxiety have improved since taking Lexapro, which was started two weeks ago. He feels that group home has had an affect on his anxiety [...] INSERTION INTRAOCULAR LENS Left 04/2008 At the [place] ??? LASER OF PROSTATE W/ GREEN LIGHT PVP 08/28/2016 Greenlight photoselective vaporization of the prostate and cystoscopy with bladder biopsy and fulguration of a 2cm area; 08/28/[address] Prasanna Bernal at the [facility]. ??? TONSILLECTOMY ??? VASECTOMY SOCIAL HISTORY Social [...] should discuss with his clinical pharmacist at [place] regardingmedication change. He will continue current doses of Metformin, NovoLog, and Lantus. Patient was advised to continue current [place] diet and regular exercise. Self-management [...] his PCP, physicians and clinical pharmacist at [place]. Return to the clinic as needed. Administrative Billing 40 minutes of this 45 minute visit was spent in face to face counseling and coordination of care. This document serves as a record of services personally performed by Dr. Azeme Martino. It was created on their behalf by Chad Varner, a trained certified medical coding specialist. The creation of this [...] as of this encounter Care Teams Central Sterile Tech Relationship Specialty Start Date End Date Ewa Alejandro M.D. PCP - General 03/13/17 01/09/[address] [place] [phone] documented as of this encounter
--- OUTSIDE RECORDS SUMMARY | 2022-05-27 12:09 | XMS_ITS | Encounter Summary ---
:1945 Author Organization [facility] Address [address] [place] [address] Care Team Providers Name Role Phone Ewa Alejandro M.D. Primary Care Provider [phone] Encounter Details Date Type Department Care Team Description 07/02/2018 Hospital Encounter Department of Laboratory Emil Zurita, Diarrhea Medicine in [place] [address] [id number] [phone] Social History Tobacco Use Types Packs/Day Years [...] do you attend shinto or Never 2021 caodaism services? Do you [...] Transglutaminase), Antibody, IgA (07/02/2018 8:45 AM CDT) [facility] Method Time Signature Tissue <1.2 <4.0 07/03/2018 [facility] Transglutaminase Ab, (Negative 12:51 PM LABORATOR IES - IgA, S ) U/mL CDT [facility] Specimen Anatomical Collection Method Collection Time Receive d Time (Source) Location / / Volume Laterality Blood 07/02/2018 8:45 AM 8 CDT 12:51 PM CDT Emil Zurita M.D. LAB BLOOD ADD-ON Performing Organization Address City/State/ZIP Code Phon e Number [facility] - [address] [facility] [place] [address] [facility] T4 (Thyroxine), Free, Serum (07/02/2018 8:45 AM CDT) athologist Signature T4 (Thyroxine), 1.2 0.9 - 1.7 07/02/2018 [facility] Free, S ng/dL 2:12 PM CDT [facility] Comment: Biotin has been identified by the capri enriquez as a potential interfering substance. ??Higher concentr ations of biotin may be found in multivitamins, hair/nail supple ments, and workout supplements. ??If the result does not [facility] clinical observations, repeat testing after patient refrains fr om the use of supplements for at least 12 hours. Specimen Anatomical Collection Method Collection Time Receive d Time (Source) Location / / Volume Laterality Blood 07/02/2018 8:45 AM 8 CDT 10:37 AM CDT Emil Zurita M.D. LAB BLOOD ADD-ON Performing Organization Address City/State/ZIP Code Phon e Number [facility] [address], [place] [address] LAB Vitamin A and Vitamin E (07/02/2018 8:45 AM CDT) athologist Signature Vitamin A 60.0 32.5 - 78.0 07/07/2018 [facility] mcg/dL 2:06 AM CDT [facility] Comment: ----ADDITIONAL INFORMATION---- This test was developed and its performa nce characteristics determined by [facility] in a manner consistent with CLIA requirements. This test has not been cleared or approved by the [place] d and Drug Administration. A-Tocopherol, Vitamin E 14.1 5.5 - 17.0 07/07/2018 9:25 PM [facility] mg/L CDT [facility] Comment: ----ADDITIONAL INFORMATION---- This test was developed and its performa nce characteristics determined by [facility] in a manner consistent with CLIA requirements. This test has not been cleared or approved by the [place] d and Drug Administration. Specimen Anatomical Collection Method Collection Time Receive d Time (Source) Location / / Volume Laterality Blood (Blood, 07/02/2018 8:45 AM 07/03/20 4:13 Venous) CDT PM CDT Narrative [facility] - 07/07/2018 9:25 PM CDT Specimen Information: Specimen ID: [id number] Specimen Type: Blood Specimen Collection Start Date: 07/02/20 ??8:45 AM Specimen Received Date: 07/03/2018 ??4:1 3 PM Specimen ID: [id number] Specimen Type: Blood Specimen Collection Start Date: 07/02/20 ??8:45 AM Specimen Received Date: 07/03/2018 ??4:3 2 PM Emil Zurita M.D. LAB BLOOD NON ADD-ON Performing Organization Address City/[facility] Code Phon e Number [facility] [address] [place], [place] [address] [facility] 25-Hydroxyvitamin D2 and D3 (07/02/2018 8:45 AM CDT) athologist Signature 25-Hydroxy D2 <4.0 ng/mL 07/03/2018 [facility] 10:08 PM CDT [facility] 25-Hydroxy D3 24 ng/mL 07/03/2018 [facility] 10:08 PM CDT [facility] 25-Hydroxy D 24 ng/mL 07/03/2018 [facility] Total 10:08 PM CDT [facility] Comment: ----REFERENCE VALUE---- 25-HYDROXY D TOTAL (D2+D3) Optimum level s in the healthy population are 20-50, patients with bone disease may benefit from higher levels within this r stan. ----ADDITIONAL INFORMATION---- This test was developed and its performa nce characteristics determined by [facility] in a manner consistent with CLIA requirements. This test has not been cleared or approved by the [place] d and Drug Administration. Specimen Anatomical Collection Method Collection Time Receive d Time (Source) Location / / Volume Laterality Blood (Blood, 07/02/2018 8:45 AM 07/03/20 7:49 Venous) CDT AM CDT Emil Zurita M.D. LAB BLOOD ADD-ON Performing Organization Address City/[facility] Phon e Number [facility] [address] [place], [place] [address] [facility] Creatinine with Estimated GFR (07/02/2018 8:45 AM CDT) athologist Signature Creatinine 1.01 0.74 - 07/02/2018 [facility] 1.35 mg/dL 11:10 AM T [facility] [employer] LAB eGFR-Non 73 >=60 07/02/2018 [facility] Black/ mL/min/BSA 11:10 AM [facility] [place] [facility] Comment: ----ADDITIONAL INFORMATION---- Estimated GFR calculated using the 2009 CKD_EPI creatinine equation. eGFR-Black/ 84 >=60 mL/min/BSA 2017 11:10 AM [facility] Comment: ----ADDITIONAL INFORMATION---- Estimated GFR calculated using the 2009 CKD_EPI creatinine equation. Specimen Anatomical Collection Method Collection Time Receive d Time (Source) Location / / Volume Laterality Blood (Blood, 07/02/2018 8:45 AM 07/02/20 18 Venous) CDT 10:37 AM CDT Emil Zurita M.D. LAB BLOOD ADD-ON Performing Organization Address City/State/ZIP Code Phon e Number [facility] [address] [place] [address] LAB Sodium (07/02/2018 8:45 AM CDT) athologist Signature Sodium, S 141 135 - 145 07/02/2018 [facility] mmol/L 11:10 AM T [facility] Specimen Anatomical Collection Method Collection Time Receive d Time (Source) Location / / Volume Laterality Blood (Blood, 07/02/2018 8:45 AM 07/02/20 18 Venous) CDT 10:37 AM CDT Emil Zurita M.D. LAB BLOOD ADD-ON Performing Organization Address City/State/[facility] Code Phon e Number [facility] [address] [place] [address] LAB Potassium (07/02/2018 8:45 AM CDT) athologist Signature Potassium, S 4.6 3.6 - 5.2 07/02/2018 [facility] mmol/L 11:10 AM CDT [facility] Specimen Anatomical Collection Method Collection Time Receive d Time (Source) Location / / Volume Laterality Blood (Blood, 07/02/2018 8:45 AM 07/02/20 Venous) CDT 10:37 AM CDT Authorizing Provider Result Deloris Zurita M.D. LAB BLOOD ADD-ON Performing Organization Address City/State/ZIP Code Phon e Number [facility] [address] [place] [address] LAB CRP (C-Reactive Protein) (07/02/2018 8:45 AM CDT) athologist Signature C-Reactive <3.0 <=8.0 mg/L 07/02/2018 [facility] Protein (CRP), 4:22 PM CDT [facility] Specimen Anatomical Collection Method Collection Time Receive d Time (Source) Location / / Volume Laterality Blood (Blood, 07/02/2018 8:45 AM 07/02/20 4:03 Venous) CDT PM CDT Emil Zurita M.D. LAB BLOOD ADD-ON Performing Organization Address City/State/ZIP Code Phon e Number [facility]- [address] [place] [address] MAC LAB (ABNORMAL) Thyroid Function [place] (07/02/2018 8:45 AM CDT) athologist Signature TSH, Sensitive 5.1 (H) 0.3 - 4.2 07/02/2018 [facility] mIU/L 12:24 PM CDT [facility] Comment: Biotin has been identified by the capri enriquez as a potential interfering substance. ??Higher concentr ations of biotin may be found in multivitamins, hair/nail supple ments, and workout supplements. ??If the result does not [facility] clinical observations, repeat testing after patient refrains fr om the use of supplements for at least 12 hours. Specimen Anatomical Collection Method Collection Time Receive d Time (Source) Location / / Volume Laterality Blood (Blood, 07/02/2018 8:45 AM 07/02/20 18 Venous) CDT 10:37 AM CDT Emil Zurita M.D. LAB BLOOD ADD-ON Performing Organization Address City/[facility]/ZIP Code Phon e Number [facility] [address] [place] [address] LAB Celiac Disease Serology [place] (07/02/2018 8:45 AM CDT) Component Value Ref Test Analysis Performed At [facility] Method Time Signature Immunoglobulin A 151 61 - 07/03/2018 [facility] (IgA), S 356 8:15 AM LABORATORIES - mg/dL CDT [facility] Celiac Disease Negative serology. Celiac di sease unlikely. However, approximately 10% of 07/03/2018 [facility] Interpretation patients with celiac disease are seronegative. Also, patients who are already 10:25 PM LABORATORIES - adhering to a gluten-free diet may be seronegative. If melissa iac disease is CDT [facility] clinically suspected, consider HLA-DQ typing. CAMPUS Specimen Anatomical Collection Method Collection Time Receive d Time (Source) Location / / Volume Laterality Blood (Blood, 07/02/2018 8:45 AM 07/03/20 18 6:25 Venous) CDT AM CDT Emil Zurita M.D. LAB BLOOD ADD-ON Performing Organization Address City/[facility]/ZIP Code Phon e Number [facility] - [address] [place] [phone] [facility] Thyroperoxidase (TPO) Antibodies, Serum (07/02/2018 8:32 AM CDT) [facility] Method Time Signature Thyroperoxidase Ab, 0.9 <9.0 07/03/2018 [facility] S IU/mL 8:28 AM CDT LABORATORIES - [facility] Specimen Anatomical Collection Method Collection Time Receive d Time (Source) Location / / Volume Laterality Blood 07/02/2018 8:32 AM 8 7:45 CDT AM CDT Emil Zurita M.D. LAB BLOOD NON ADD-ON Performing Organization Address City/[facility]/ZIP Code Phon e Number [facility] - [address] (ABNORMAL) CBC with Differential, Blood (07/02/2018 8:32 AM CDT) [facility] Method Time Signature Hemoglobin 12.1 (L) 13.2 - 07/02/2018 [facility] 16.6 g/dL 10:45 AM CDT [facility] Hematocrit 34.9 (L) 38.3 - 07/02/2018 [facility] 48.6 % 10:45 AM CDT [facility] Erythrocytes 4.01 (L) 4.35 - 07/02/2018 [facility] 5.65 10:45 AM CDT [facility](12[facility] [place] MCV 87.0 78.2 - 07/02/2018 [facility] 97.9 fL 10:45 AM CDT [facility] RBC Distrib Width 12.8 11.8 - 07/02/2018 [facility] 14.5 % 10:45 AM CDT [facility] Platelet Count 209 135 - 317 07/02/2018 [facility] x10(9)/L 10:45 AM CDT [facility] Leukocytes 6.1 3.4 - 9.6 07/02/2018 [facility] x10(9)/L 10:45 AM CDT [facility] Neutrophils 3.97 1.56 - 07/02/2018 [facility] 6.45 10:45 AM CDT [facility] [place] Lymphocytes 1.24 0.95 - 07/02/2018 [facility] 3.07 10:45 AM CDT [facility] Monocytes 0.38 0.26 - 07/02/2018 [facility] 0.81 10:45 AM CDT [facility] Eosinophils 0.50 (H) 0.03 - 07/02/2018 [facility] 0.48 10:45 AM CDT [facility](9[facility] [place] Basophils 0.03 0.01 - 07/02/2018 [facility] 0.08 10:45 AM CDT [facility] [place] Specimen Anatomical Collection Method Collection Time Receive d Time (Source) Location / / Volume Laterality Blood 07/02/2018 8:32 AM 8 CDT 10:40 AM CDT Emil Zurita M.D. LAB BLOOD ADD-ON Performing Organization Address City/State/ZIP Code Phon e Number [facility] [address] [place] [address] LAB documented in this encounter Visit Diagnoses Diagnosis Diarrhea documented in this encounter Additional Health Concerns Assessment Noted Time PHQ-9 Depression Total Score: 18 04/28/2018 11:27 AM C DT documented as of this encounter Care Teams Commercial Leasing Manager Relationship Specialty Start Date End Date Ewa Alejandro M.D. PCP - General 03/13/17 01/09/202199 [place] [phone] documented as of this encounter
--- OUTSIDE RECORDS SUMMARY | 2022-05-27 12:09 | XMS_ITS | Encounter Summary ---
:1945 Author Organization [facility] Address [address] [place] [address] Care Team Providers Name Role Phone Ewa Alejandro M.D. Primary Care Provider [phone] Reason for Visit Outpatient (Routine) - Closed Specialty Diagnoses / Referred By Referred To Cont act Procedures Contact Gastroenterology and Diagnoses Diarrhea Nausea Pancreatitis Chronic (HCC) [facility]ri[facility] Hepatology Ewa walton M.D. [address], [place] [address] Referral ID Status Reason Start Date Expiration Date Visits V isits Requested Authorized [id number] Closed Specialty 06/18/2018 06/18/2019 1 1 Services Required Encounter Details Date Type Department Care Team Description 06/25/2018 Comprehensive Visit Division of Parminder, Diarrhea (Primary Dx); Gastroenterology in [place], Nausea; [place] Pancreatitis Chronic (HCC) [address] [facility] [address] [place] [address] [place] [address] Social History Tobacco Use Types Packs/Day Years [...] do you attend judaism or Never 2021 latter-day services? Do you belong to any clubs or No 10/09/2021 organizations such as judaism groups, unions, fraCIBDO or athletic groups, or school groups? How [...] experience up to 30 bowel movements mostly Turrell 6 and 7. The frequency has decreased somewhat over the past 2 months and the consistencyhas become more Turrell fiber 6. There are still days where [...] with Dr. Prasanna Bernal at the [facility]. ??? TONSILLECTOMY ??? VASECTOMY Allergies Allergen Reactions [...] mg total) by mouth daily. 05/08/18 05/08/19 Ewa Alejandro M.D. insulin aspart (NovoLOG) 100 unit/mL [...] day with meals. 06/22/18 06/22/19 Sabine Landis, STORAGE MANAGEMENT ARCHITECT, C.N.P. omega-3 fatty acids-fish oil 300-1,000 mg [...] Panel, PCR, Feces (07/10/2018 6:00 AM CDT) [facility] Method Time Signature Specimen Source STOOL 07/10/2018 [facility] 8:38 PM CDT [facility] Campylobacter Negative Negative 07/10/2018 [facility] species 8:38 PM CDT [facility] C. difficile toxin Negative Negative 07/10/2018 [facility] 8:38 PM CDT [facility] Plesiomonas Negative Negative 07/10/2018 [facility] shigelloides 8:38 PM CDT [facility] Salmonella species Negative Negative 07/10/2018 [facility] 8:38 PM CDT [facility] Vibrio species Negative Negative 07/10/2018 [facility] 8:38 PM CDT [facility] Vibrio cholerae Negative Negative 07/10/2018 [facility] 8:38 PM CDT [facility] Yersinia species Negative Negative 07/10/2018 [facility] 8:38 PM CDT [facility] Enteroaggregative E. Negative Negative 07/10/2018 [facility] [place] coli (EAEC) 8:38 PM CDT [facility] Enteropathogenic E. Negative Negative 07/10/2018 [facility] coli (EPEC) 8:38 PM CDT [facility] Enterotoxigenic E. Negative Negative 07/10/2018 [facility] coli (ETEC) 8:38 PM CDT [facility] Shiga toxin Negative Negative 07/10/2018 [facility] producing E. coli 8:38 PM CDT [facility] Shigella/Enteroinvas Negative Negative 07/10/2018 [facility] [place] akil E. coli 8:38 PM CDT [facility] Cryptosporidium Negative Negative 07/10/2018 [facility] species 8:38 PM CDT [facility] Cyclospora Negative Negative 07/10/2018 [facility] cayetanensis 8:38 PM CDT [facility] Entamoeba Negative Negative 07/10/2018 [facility] histolytica 8:38 PM CDT [facility] Giardia Negative Negative 07/10/2018 [facility] 8:38 PM CDT [facility] Adenovirus F40/41 Negative Negative 07/10/2018 [facility] 8:38 PM CDT [facility] Astrovirus Negative Negative 07/10/2018 [facility] 8:38 PM CDT [facility] Norovirus GI/GII Negative Negative 07/10/2018 [facility] 8:38 PM CDT [facility] Rotavirus Ag, F Negative Negative 07/10/2018 [facility] 8:38 PM CDT [facility] Sapovirus Negative Negative 07/10/2018 [facility] 8:38 PM CDT [facility] Comment: ----ADDITIONAL INFORMATION---- This assay is performed using the FDA-cl eared FilmArray GI Panel ([employer] Specimen Anatomical Collection Method Collection Time Receive d Time (Source) Location / / Volume Laterality Stool (Stool) 07/10/2018 6:00 AM 07/10/20 18 8:14 CDT PM CDT Emil Zurita M.D. LAB MICROBIOLOGY - GENERAL O RDERABLES Performing Organization Address City/State/ZIP Code Phon e Number [facility] [address] [place] [address] LAB Vitamin A and Vitamin E (07/02/2018 8:45 AM CDT) P athologist Signature Vitamin A 60.0 32.5 - 78.0 07/07/2018 [facility] mcg/dL 2:06 AM T [facility] Comment: ----ADDITIONAL INFORMATION---- This test was developed and its performa nce characteristics determined by [facility] in a manner consistent with CLIA requirements. This test has not been cleared or approved by the [place] Sus[place] d and Drug Administration. A-Tocopherol, Vitamin E 14.1 5.5 - 17.0 07/07/2018 9:25 PM [facility] mg/L T [facility] Comment: ----ADDITIONAL INFORMATION---- This test was developed and its performa nce characteristics determined by [facility] in a manner consistent with CLIA requirements. This test has not been cleared or approved by the [place]. [place] d and Drug Administration. Specimen Anatomical Collection Method Collection Time Receive d Time (Source) Location / / Volume Laterality Blood (Blood, 07/02/2018 8:45 AM 07/03/20 18 4:13 Venous) CDT PM CDT [facility]ative [facility] 9:25 PM CDT Specimen Information: Specimen ID: [id number] Specimen Type: Blood Specimen Collection Start Date: 07/02/20 ??8:45 AM Specimen Received Date: 07/03/2018 ??4:1 3 PM Specimen ID: [id number] Specimen Type: Blood Specimen Collection Start Date: 07/02/20 ??8:45 AM Specimen Received Date: 07/03/2018 ??4:3 2 PM Emil Zurita M.D. LAB BLOOD NON ADD-ON Performing Organization Address City/State/ZIP Code Phon e Number [facility] [address] [place], [place] [address] [place] [address] 25-Hydroxyvitamin D2 and D3 (07/02/2018 8:45 AM CDT) athologist Signature 25-Hydroxy D2 <4.0 ng/mL 07/03/2018 [facility] 10:08 PM CDT [facility] 25-Hydroxy D3 24 ng/mL 07/03/2018 [facility] 10:08 PM CDT [facility] 25-Hydroxy D 24 ng/mL 07/03/2018 [facility] Total 10:08 PM CDT [facility] Comment: ----REFERENCE VALUE---- 25-HYDROXY D TOTAL (D2+D3) Optimum level s in the healthy population are 20-50, patients with bone disease may benefit from higher levels within this r stan. ----ADDITIONAL INFORMATION---- This test was developed and its performa nce characteristics determined by [facility] in a manner consistent with CLIA [...] e Number [facility] [address] [place], [place] [address] [facility] Creatinine with Estimated GFR (07/02/2018 8:45 AM CDT) athologist Signature Creatinine 1.01 0.74 - 07/02/2018 [facility] 1.35 mg/dL 11:10 AM CDT [facility] [employer] LAB eGFR-Non 73 >=60 07/02/2018 [facility] Black/ mL/min/BSA 11:10 AM CDT [facility] [place] [facility] Comment: ----ADDITIONAL INFORMATION---- Estimated GFR calculated using the 2009 CKD_EPI creatinine equation. eGFR-Black/ 84 >=60 mL/min/BSA 2017 11:10 AM [facility] Comment: ----ADDITIONAL INFORMATION---- Estimated GFR calculated using the 2009 CKD_EPI creatinine equation. Specimen Anatomical Collection Method Collection Time Receive d Time (Source) Location / / Volume Laterality Blood (Blood, 07/02/2018 8:45 AM 07/02/20 Venous) CDT 10:37 AM CDT Emil Zurita M.D. LAB BLOOD ADD-ON Performing Organization Address City/State/ZIP Code Phon e Number [facility] [address] [place] [address] LAB Sodium (07/02/2018 8:45 AM CDT) athologist Signature Sodium, S 141 135 - 145 07/02/2018 [facility] mmol/L 11:10 AM CDT [facility] LAB Specimen Anatomical Collection Method Collection Time Receive d Time (Source) Location / / Volume Laterality Blood (Blood, 07/02/2018 8:45 AM 07/02/20 18 Venous) CDT 10:37 AM CDT Emil Zurita M.D. LAB BLOOD ADD-ON Performing Organization Address City/State/ZIP Code Phon e Number [facility] [address] [place] [address] LAB Potassium (07/02/2018 8:45 AM CDT) athologist [facility] Potassium, S 4.6 3.6 - 5.2 07/02/2018 [facility] mmol/L 11:10 AM CDT [facility] Specimen Anatomical Collection Method Collection Time Receive d Time (Source) Location / / Volume Laterality Blood (Blood, 07/02/2018 8:45 AM 07/02/20 18 Venous) CDT 10:37 AM CDT Emil Zurita M.D. LAB BLOOD ADD-ON Performing Organization Address City/State/ZIP Code Phon e Number [facility] [address] [place] [address] LAB CRP (C-Reactive Protein) (07/02/2018 8:45 AM CDT) [facility] C-Reactive <3.0 <=8.0 mg/L 07/02/2018 [facility] Protein (CRP), 4:22 PM CDT [facility] Specimen Anatomical Collection Method Collection Time Receive d Time (Source) Location / / Volume Laterality Blood (Blood, 07/02/2018 8:45 AM 07/02/20 18 4:03 Venous) CDT PM CDT Emil Zurita M.D. LAB BLOOD ADD-ON Performing Organization Address City/State/ZIP Code Phon e Number [facility] [address] [place] [address] MAC LAB (ABNORMAL) Thyroid Function [place] (07/02/2018 8:45 AM CDT) athologist [facility] TSH, Sensitive 5.1 (H) 0.3 - 4.2 07/02/2018 [facility] mIU/L 12:24 PM CDT [facility] Comment: Biotin has been identified by the capri enriquez as a potential interfering substance. ??Higher concentr ations of biotin may be found in multivitamins, hair/nail supple ments, and workout supplements. ??If the result does not [facility] clinical observations, repeat testing after patient refrains fr om the use of supplements for at least 12 hours. Specimen Anatomical Collection Method Collection Time Receive d Time (Source) Location / / Volume Laterality Blood (Blood, 07/02/2018 8:45 AM 07/02/20 18 Venous) CDT 10:37 AM CDT Emil Zurita M.D. LAB BLOOD ADD-ON Performing Organization Address City/[facility]/ZIP Code Phon e Number [facility] [address] [place] [id number] LAB Celiac Disease Serology [place] (07/02/2018 8:45 AM CDT) Component Value Ref Test Analysis Performed At [facility] gist Range Method Time Signature Immunoglobulin A 151 61 - 07/03/2018 [facility] (IgA), S 356 8:15 AM LABORATORIES - mg/dL CDT [facility] Celiac Disease Negative serology. Celiac di sease unlikely. However, approximately 10% of 07/03/2018 [facility] Interpretation patients with celiac disease are seronegative. Also, patients who are already 10:25 PM LABORATORIES - adhering to a gluten-free diet may be seronegative. If melissa iac disease is CDT [facility] clinically suspected, consider HLA-DQ typing. [facility] Specimen Anatomical Collection Method Collection Time Receive d Time (Source) Location / / Volume Laterality Blood (Blood, 07/02/2018 8:45 AM 07/03/20 18 6:25 Venous) CDT AM CDT Emil Zurita M.D. LAB BLOOD ADD-ON Performing Organization Address City/State/ZIP Code Phon e Number [facility] LABORATORIES - [address] [place], [place] [address] [facility] documented in this encounter Visit Diagnoses Diagnosis Diarrhea - Primary Nausea Pancreatitis Chronic (HCC) Diarrhea documented in this encounter Additional Health Concerns Assessment Noted Time PHQ-9 Depression Total Score: 18 04/28/2018 11:27 AM C DT documented as of this encounter Care Teams Process Improvement Specialist Relationship Specialty Start Date End Date Ewa Alejandro M.D. PCP - General 03/13/17 01/09/202199 [address] [address] documented as of this encounter
--- OUTSIDE RECORDS SUMMARY | 2022-05-27 12:09 | XMS_ITS | Encounter Summary ---
:1945 Author Organization [facility] Address [address] [place] [address] Care Team Providers Name Role Phone Ewa Alejandro M.D. Primary Care Provider [phone] Encounter Details Date Type Department Care Team Description 05/12/2018 Clinical Communication Department of Family Kirill Torres [facility], Ewa Barclay, Clinic, in [place] [address] [place] [phone] Social History Tobacco Use Types Packs/Day Years [...] do you attend orthodox or Never 2021 yazdanism services? Do you [...] documented as of this encounter Care Teams Company Doctor Relationship Specialty Start Date End Date Ewa Alejandro M.D. PCP - General 03/13/17 01/09/20 [address], [place] [address] documented as of this encounter
--- OUTSIDE RECORDS SUMMARY | 2022-05-27 12:09 | XMS_ITS | Encounter Summary ---
:1945 Author Organization [facility] Address [address] [place] [address] Care Team Providers Name Role Phone Ewa Alejandro M.D. Primary Care Provider [phone] Reason for Visit Reason Comments Follow-up bladder cancer Outpatient (Routine) - Closed Specialty Diagnoses / Procedures Referred By Contact Refer red To Contact Diagnoses Cancer Bladder Family History Prasanna Bernal M.D. [facility] Procedures Cystoscopy (specific provider) [address] [place] [address] Referral ID Status Reason Start Date Expiration Date Visits Requ ested Visits Authorized [id number] Closed 01/15/2018 07/14/2018 1 1 Encounter Details Date Type Department Care Team Description 05/21/2018 Procedure visit Department of Urology Prasanna Bernal, Cancer Bladder in [place] Personal History [place] [address] [place] [address] [phone] Social History Tobacco Use Types Packs/Day Years [...] do you attend temple or Never 2021 scientology services? Do you belong to any clubs or No 10/09/2021 organizations such as temple groups, unions, fra911 Pets or athletic groups, or school groups? How [...] Priority Date/Time Associated Diagnosis Comme nts CYTOLOGY NON-OBSERVER ELECTRICAL PROSPECTING Routine 05/21/2018 3:31 PM Cancer Bladder Res [...] Component Value Ref Test Analysis Performed At [employer] Range Method Time Signature Result Summary Negative 05/29/2018 [facility] 4:55 PM LABORATORIES - [facility] Karyotype No evidence of 05/29/2018 [facility] urothelial 4:55 PM LABORATORIES - carcinoma. [facility] Reason for Evaluate for 05/29/2018 [facility] referral urothelial 4:55 PM LABORATORIES - carcinoma. [facility] Specimen Varies 05/29/2018 [facility] 4:55 PM LABORATORIES - [facility] Source voided 05/29/2018 [facility] 4:55 PM LABORATORIES - [facility] Released By Miguelito Machuca 05/29/2018 [facility] [place], 4:55 PM LABORATORIES - Ph.D. [facility] Interpretation This test result does not rule out the possibility t hat the 05/29/2018 [facility] patient may have a low-grade (i.e. grade 1 or 2) 4:55 PM LABORATORIES - non-invasive papillary urothelial carcinoma. Some patients [facility] with low grade non-invasive papillary urothelial carcinoma [place] do not have abnormalities with this FISH test. Comment: ----ADDITIONAL INFORMATION---- Fluorescence in situ hybridization (FISH ) with centromere probes for chromosomes 3 (D3Z1), 7(D7Z1), 17(D17Z1) , and a locus specific probe for 9p21. This test has been modified from the man ufacturer's instructions. Its performance characteristics were determi darnell by [facility] in a manner consistent with CLIA requirements. [...] City/State/ZIP Code Phon e Number [facility] LABORATORIES - [address] [place], [place] [address] [facility] Cytology Non-OBSERVER ELECTRICAL PROSPECTING (05/21/2018 3:31 PM CDT) Component Value Ref Test Analysis Performed At [facility] gist Range Method Time Signature Gross Description Received 40 05/22/2018 [facility] IC ml of yellow 2:35 PM CDT [facility] alcohol fixed [facility] CYTOLOGY Collection urine void 05/22/2018 [facility] Procedure 2:35 PM CDT [facility] CYTOLOGY Fixative no 05/22/2018 [facility] 2:35 PM CDT [facility] CYTOLOGY Source A. Urine, 05/22/2018 [facility] voided 2:35 PM CDT [facility] CYTOLOGY Clinical History bladder 05/22/2018 [facility] cancer 2:35 PM T [facility] CYTOLOGY Report Jose Khan MD 05/22/2018 [facility] [place] electronically I verify that I have examined all relevant slides/ma terials 2:35 PM T [facility] signed by for the specimen(s) and rendered or [facility] 05/22/2018 [facility] 2:35 PM CDT [facility] CYTOLOGY Interpretation A. Urine, voided (cytospin): Negative for High-Grade 05/22/2018 [facility] Urothelial Carcinoma. 2:35 PM CDT [facility] CYTOLOGY Specimen Anatomical Collection Method Collection Time Receive d Time (Source) Location / / Volume Laterality Varies 05/21/2018 3:31 PM 8 8:42 CDT AM CDT Narrative This result has an attachment that is no t available. Prasanna Bernal M.D. LAB SURG PATH ORDERABLES Performing Organization Address City/State/ZIP Code Phon e Number [facility] [address] [place] [address] CYTOLOGY documented in this encounter Visit Diagnoses Diagnosis Personal History Of Malignant Neoplasm O f Bladder documented in this encounter Additional Health Concerns Assessment Noted Time PHQ-9 Depression Total Score: 18 04/28/2018 11:27 AM C DT documented as of this encounter Care Teams Pullboat Engineer Relationship Specialty Start Date End Date Ewa Alejandro M.D. PCP - General 03/13/17 01/09/20 [address] [address] documented as of this encounter
--- OUTSIDE RECORDS SUMMARY | 2022-05-27 12:09 | XMS_ITS | Encounter Summary ---
:1945 Author Organization [facility] Address [address] [place] [address] Care Team Providers Name Role Phone Ewa Alejandro M.D. Primary Care Provider Encounter Details Date Type Department Care Team Description 05/08/2018 Clinical Communication Department of Family Kirill Torres [facility] in [facility] [place] [address] [facility] [address] [place] [phone] Social History Tobacco Use Types Packs/Day [...] as requested by patient. Telephone Encounter - Ewa Alejandro M.D. - 05/08/2018 5:26 PM CDT [...] Dr. Roy. Please call him back at [phone] documented in this encounter Plan of Treatment Not on filedocumented as of this encounter Visit Diagnoses Not on filedocumented in this encounter Additional Health Concerns Assessment Noted Time PHQ-9 Depression Total Score: 18 04/28/2018 11:27 AM C DT documented as of this encounter Care Teams Manager Field Relationship Specialty Start Date End Date Ewa Alejandro M.D. PCP - General 03/13/17 01/09/[address] [address] documented as of this encounter
--- OUTSIDE RECORDS SUMMARY | 2022-05-27 12:09 | XMS_ITS | Encounter Summary ---
:1945 Author Organization [facility] Address [address] [place] [address] Care Team Providers Name Role Phone Shayla Alford D.O. Primary Care Provider [phone] Encounter Details Date Type Department Care Team Description 06/09/2018 Orders Only Department of Family Philip trimble Mellitus Type Medicine, Ewa Barclay, 2 (HCC) (Primary Dx) Clinic, in [place] [address] [place] [phone] Social History Tobacco Use Types Packs/Day [...] do you attend zoroastrianism or Never 2021 temple services? Do you [...] COVID19 Pending 08/21/2020 08/21/2020 08/22/2020 6:39 AM RIM FIRE PRIMING TOOL SETTER COVID19 Pending 12/23/2020 12/24/2020 12/25/2020 2:43 PM CDT Assessment Noted Time PHQ-9 Depression Total Score: 18 04/28/2018 11:27 AM C DT documented as of this encounter Care Teams Chief Controller Center Relationship Specialty Start Date End Date Shayla Alford D.O. PCP - General Internal Medicine 05/22/[address] [address] [phone] (work) documented as of this encounter
--- OUTSIDE RECORDS SUMMARY | 2022-05-27 12:09 | XMS_ITS | Encounter Summary ---
:1945 Author Organization [facility] Address [address] [place] [address] Care Team Providers Name Role Phone Ewa Alejandro M.D. Primary Care Provider [phone] Encounter Details Date Type Department Care Team Description 07/02/2018 Hospital Encounter Department of Jamaal Zurita ; Laboratory Medicine Rhoda Stein Pancreatitis Chronic (HCC) in [place], [address] [place] [address] [address] [place], [place] [phone] (Work) [phone] Social History Tobacco Use Types Packs/Day Years [...] do you attend hinduism or Never 2021 yazidism services? Do you [...] Panel, PCR, Feces (07/10/2018 6:00 AM CDT) [facility] Method Time Signature Specimen Source STOOL 07/10/2018 [facility] 8:38 PM CDT [facility] Campylobacter Negative Negative 07/10/2018 [facility] species 8:38 PM CDT [facility] C. difficile toxin Negative Negative 07/10/2018 [facility] 8:38 PM CDT [facility] Plesiomonas Negative Negative 07/10/2018 [facility] shigelloides 8:38 PM CDT [facility] Salmonella species Negative Negative 07/10/2018 [facility] 8:38 PM CDT [facility] Vibrio species Negative Negative 07/10/2018 [facility] 8:38 PM CDT [facility] Vibrio cholerae Negative Negative 07/10/2018 [facility] 8:38 PM CDT [facility] Yersinia species Negative Negative 07/10/2018 [facility] 8:38 PM CDT [facility] Enteroaggregative E. Negative Negative 07/10/2018 [facility] coli (EAEC) 8:38 PM CDT [facility] Enteropathogenic E. Negative Negative 07/10/2018 [facility] coli (EPEC) 8:38 PM CDT [facility] Enterotoxigenic E. Negative Negative [facility] coli ([facility]:38 PM CDT [facility] Shiga toxin Negative Negative 07/10/2018 [facility] producing E. coli 8:38 PM CDT [facility] Shigella/Enteroinvas Negative Negative 07/10/2018 [facility] akil E. coli 8:38 PM CDT [facility] Cryptosporidium Negative Negative 07/10/2018 [facility] species 8:38 PM CDT [facility] Cyclospora Negative Negative 07/10/2018 [facility] cayetanensis 8:38 PM CDT [facility] Entamoeba Negative Negative 07/10/2018 [facility] histolytica 8:38 PM CDT [facility] Giardia Negative Negative 07/10/2018 [facility] 8:38 PM CDT [facility] Adenovirus F40/41 Negative Negative 07/10/2018 [facility] 8:38 PM CDT [facility] Astrovirus Negative Negative 07/10/2018 [facility] 8:38 PM CDT [facility] Norovirus GI/GII Negative Negative 07/10/2018 [facility] 8:38 PM CDT [facility] Rotavirus Ag, F Negative Negative 07/10/2018 [facility] 8:38 PM CDT [facility] Sapovirus Negative Negative 07/10/2018 [facility] 8:38 PM CDT [facility] Comment: ----ADDITIONAL INFORMATION---- This assay is performed using the FDA-cl eared FilmArray GI Panel ([employer] Specimen Anatomical Collection Method Collection Time Receive d Time (Source) Location / / Volume Laterality Stool (Stool) 07/10/2018 6:00 AM 07/10/20 18 8:14 CDT PM CDT Emil Zurita M.D. LAB MICROBIOLOGY - GENERAL O RDERABLES Performing Organization Address City/State/[facility] Phon e Number [facility] [address] [place] [address] LAB documented in this encounter Visit Diagnoses Diagnosis Diarrhea Pancreatitis Chronic (HCC) documented in this encounter Additional Health Concerns Assessment Noted Time PHQ-9 Depression Total Score: 18 04/28/2018 11:27 AM C DT documented as of this encounter Care Teams Validation Scientist Relationship Specialty Start Date End Date Ewa Alejandro M.D. PCP - General 03/13/17 01/09/[address] [phone] documented as of this encounter
--- OUTSIDE RECORDS SUMMARY | 2022-05-27 12:10 | XMS_ITS | Encounter Summary ---
:1945 Author Organization [facility] Address [address] [place] [address] Care Team Providers Name Role Phone Ewa Alejandro M.D. Primary Care Provider [phone] Encounter Details Date Type Department Care Team Description 02/18/2018 Clinical Communication Department of Family Kirill Torres [facility], [facility], in [place] [address] [place] [phone] [phone] Social History Tobacco Use Types Packs/Day Years [...] do you attend temple or Never 2021 spiritism services? Do you [...] on filedocumented in this encounter Care Teams Rocket Test Fire Worker Relationship Specialty Start Date End Date Ewa Alejandro M.D. PCP - General 03/13/17 01/09/20 [address] [place] [phone] documented as of this encounter
--- OUTSIDE RECORDS SUMMARY | 2022-05-27 12:10 | XMS_ITS | Encounter Summary ---
:1945 Author Organization [facility] Address [address] [place] [address] Care Team Providers Name Role Phone Ewa Alejandro M.D. Primary Care Provider [phone] Encounter Details Date Type Department Care Team Description 01/22/2018 Hospital Encounter Department of Lea Hall es Mellitus Laboratory Medicine Ewa brunson, Type 2 (HCC) in [place] [address] [place] [phone] Social History Tobacco Use Types Packs/Day [...] do you attend zoroastrianism or Never 2021 tenriism services? Do you [...] A1c, 9.1 (H) 4.2 - 5.6 01/22/2018 [facility] B % 11:25 AM CDT [facility] Comment: Hemoglobin A1c values greater [...] Address City/State/ZIP Code Phon e Number [facility] [address] [place] [address] LAB documented in this encounter Visit Diagnoses Diagnosis Diabetes Mellitus Type 2 (HCC) documented in this encounter Care Teams Sanitary Aide Relationship Specialty Start Date End Date Ewa Alejandro M.D. PCP - General 03/13/17 01/09/[address] [place] [phone] documented as of this encounter
--- OUTSIDE RECORDS SUMMARY | 2022-05-27 12:10 | XMS_ITS | Encounter Summary ---
:1945 Author Organization [facility] Address [address] [place] [address] Care Team Providers Name Role Phone Ewa Alejandro M.D. Primary Care Provider Encounter Details Date Type Department Care Team Description 02/18/2018 Orders Only Department of Family Sunny Martinez De hydration (Primary Medicine, [place] P.A.-C. Dx) Clinic, in [address] [address] [place], [place] [phone] (Work) [phone] Social History Tobacco Use Types Packs/Day Years [...] you attend jehovah's witness or Never 2021 yazdanism services? Do you [...] Potassium, S 5.0 3.6 - 5.2 02/19/2018 [facility] mmol/L 3:28 PM [facility] Sodium, S 143 135 - 145 02/19/2018 [facility] mmol/L 3:28 PM [facility] Chloride, S 105 98 - 107 02/19/2018 [facility] mmol/L 3:28 PM [facility] Bicarbonate, S 22 22 - 29 02/19/2018 [facility] mmol/L 1:55 PM [facility] Anion Gap 16 (H) 7 - 15 02/19/2018 [facility] 3:28 PM [facility] BUN (Blood Urea 43 (H) 8 - 24 02/19/2018 [facility] Nitrogen), S mg/dL 1:55 PM [facility] Creatinine 1.49 (H) 0.74 - 02/19/2018 [facility] 1.35 mg/dL 1:55 PM [facility] [employer] [facility] eGFR-Non 46 (L) >=60 02/19/2018 [facility] Black/ mL/min/BSA 1:55 PM [facility] [employer] [facility] Comment: ----ADDITIONAL INFORMATION---- Estimated GFR calculated using the 2009 CKD_EPI creatinine equation. eGFR-Black/ 53 (L) >=60 mL/min/BSA 02/19/2018 1:55 [facility] [place] PM CDT [facility] [place] [facility] Comment: ----ADDITIONAL INFORMATION---- Estimated GFR calculated using the 2009 CKD_EPI creatinine equation. Calcium, Total, S 9.3 8.8 - 10.2 mg/dL 02/19/2018 1:55 PM [facility] [place] [facility] Glucose, S 292 (H) 70 - 140 mg/dL 02/19/2018 1:55 PM [facility] [place] [facility] Specimen Anatomical Collection Method Collection Time Receive d Time (Source) Location / / Volume Laterality Blood (Blood, 02/19/2018 9:34 AM 02/20/20 18 Venous) CDT 11:18 AM CDT Sunny Martinez P.A.-C. LAB BLOOD ADD-ON Performing Organization Address City/State/ZIP Code Phon e Number [facility] [address] [place] [id number] [place] [facility] [address] [place] LAB documented in this encounter Visit Diagnoses Diagnosis Dehydration - Primary documented in this encounter Care Teams Scientific Writer Relationship Specialty Start Date End Date Ewa Alejandro M.D. PCP - General 03/13/17 01/09/[address] [phone] documented as of this encounter
--- OUTSIDE RECORDS SUMMARY | 2022-05-27 12:10 | XMS_ITS | Encounter Summary ---
:1945 Author Organization [facility] Address [address] [place] [address] Care Team Providers Name Role Phone Ewa Alejandro M.D. Primary Care Provider Encounter Details Date Type Department Care Team Description 12/24/2017 Orders Only Department of Family Philip trimble Mellitus Type Medicine, Ewa Barclay, 2 (HCC) (Primary Dx) Clinic, in [place] [address] [place] [phone] Social History Tobacco Use Types Packs/Day Years [...] do you attend restoration or Never 2021 methodist services? Do you [...] A1c, 9.1 (H) 4.2 - 5.6 01/22/2018 [facility] % 11:25 AM CDT [facility] Comment: Hemoglobin A1c values greater [...] City/State/ZIP Code Phon e Number [facility] [address] [place] [address] LAB documented in this encounter Visit Diagnoses Diagnosis Diabetes Mellitus Type 2 (HCC) - Primary documented in this encounter Care Teams Optometry Doctor Relationship Specialty Start Date End Date Ewa Alejandro M.D. PCP - General 03/13/17 01/09/202199 [facility] [place] [phone] documented as of this encounter
--- OUTSIDE RECORDS SUMMARY | 2022-05-27 12:10 | XMS_ITS | Encounter Summary ---
:1945 Author Organization [facility] Address [address] [place] [address] Care Team Providers Name Role Phone Ewa Alejandro M.D. Primary Care Provider [phone] Reason for Referral Outpatient (Routine) - Closed Specialty Diagnoses / Procedures Referred By Contact Refer red To Contact Diagnoses Cancer Bladder Family History Prasanna Bernal M.D. [facility] Procedures Cystoscopy (specific provider) [address] [place] [phone] Referral ID Status Reason Start Date Expiration Date Visits Requ ested Visits Authorized [id number] Closed 01/15/2018 07/14/2018 1 1 Reason for Visit Outpatient (Routine) - Closed Specialty Diagnoses / Procedures Referred By Contact Refer red To Contact Diagnoses Cancer Bladder Family History [facility]. [facility] Procedures Cystoscopy (specific provider) [address] [place] [phone] Referral ID Status Reason Start Date Expiration Date Visits Requ ested Visits Authorized [id number] Closed 09/18/2017 03/17/2018 1 1 Encounter Details Date Type Department Care Team Description 01/15/2018 Procedure visit Department of Urology Prasanna Bernal, Cancer Bladder Family in [place] [address] [place] [phone] Social History Tobacco Use Types Packs/Day [...] do you attend orthodox or Never 2021 orthodoxy services? Do [...] Priority Date/Time Associated Diagnosis Comme nts CYTOLOGY NON-COMPLIANCE NURSE Routine 01/15/2018 3:24 PM Cancer Bladder Res ults for this CDT Family History procedure are in the results section. documented in this encounter Results Pathology Non-COMPLIANCE NURSE Cytology (01/15/2018 3:24 PM CDT) Component Value Ref Test Analysis Performed At [facility] Range Method Time Signature Gross Description Received 100 01/19/2018 [facility] ml of yellow 2:07 PM [facility] alcohol [facility] Collection clean catch 01/19/2018 [facility] Procedure 2:07 PM [facility] CYTOLOGY Fixative none 01/19/2018 [facility] 2:07 PM [facility] CYTOLOGY Source A. Urine, 01/19/2018 [facility] voided 2:07 PM [facility] CYTOLOGY Clinical History bladder 01/19/2018 [facility] cancer 2:07 PM [facility] CYTOLOGY Report Brady Goodrich MD 01/19/2018 [facility] electronically I verify that I have examined all relevant slides/ma terials 2:07 PM [facility] signed by for the specimen(s) and rendered or confirmed the [facility] CYTOLOGY 01/19/2018 [facility] 2:07 PM [facility] CYTOLOGY Interpretation A. Urine, voided (cytospin): Negative for High-Grade 01/19/2018 [facility] Urothelial Carcinoma. 2:07 PM CDT [facility] CYTOLOGY Comment: Interpreted by: Brady Goodrich MD, Signed on 01/19/2018 at 14:07 Specimen Anatomical Collection Method Collection Time Receive d Time (Source) Location / / Volume Laterality Varies 01/15/2018 3:24 PM 8 CDT 11:11 AM CDT Narrative This result has an attachment that is no t available. Prasanna Bernal M.D. LAB SURG PATH ORDERABLES Performing Organization Address City/State/ZIP Code Phon e Number [facility] [address] [place] [address] CYTOLOGY documented in this encounter Visit Diagnoses Diagnosis Cancer Bladder Family History documented in this encounter Care Teams Reading Aide Relationship Specialty Start Date End Date Ewa Alejandro M.D. PCP - General 03/13/17 01/09/[address] [phone] documented as of this encounter
--- OUTSIDE RECORDS SUMMARY | 2022-05-27 12:10 | XMS_ITS | Encounter Summary ---
:1945 Author Organization [facility] Address [address] [place] [address] Care Team Providers Name Role Phone Ewa Alejandro M.D. Primary Care Provider [phone] Encounter Details Date Type Department Care Team Description 02/17/2018 Clinical Communication Department of Family Kirill Torres [facility], Ewa [place], Clinic, in [place] [address] [place] [phone] Social History Tobacco Use Types Packs/Day Years [...] IV fluids per verbal order faxed to [facility] due to labfindings Telephone Encounter - Ewa Alejandro M.D. - 02/17/2018 5:01 PM CDT Please inform Jonnathan that the test for intestinal bacteria is negative. The test for C diff is still pending. This is likely a self-limited virus documented in this encounter Plan of Treatment Not on filedocumented as of this encounter Visit Diagnoses Not on filedocumented in this encounter Care Teams Potato Chip Sacking Machine Operator Relationship Specialty Start Date End Date Ewa Alejandro M.D. PCP - General 03/13/17 01/09/20 [address] [place] [phone] documented as of this encounter
--- OUTSIDE RECORDS SUMMARY | 2022-05-27 12:10 | XMS_ITS | Encounter Summary ---
:1945 Author Organization [facility] Address [address] [place] [address] Care Team Providers Name Role Phone Ewa Alejandro M.D. Primary Care Provider Encounter Details Date Type Department Care Team Description 02/17/2018 Hospital Encounter Department of Laboratory Kirill Nicholas Medicine in [place] Judy, M .D. [place] [address] [place] [phone] Social History Tobacco Use Types Packs/Day Years [...] do you attend rastafari or Never 2021 hindu services? Do you [...] on filedocumented in this encounter Care Teams Nurses Supervisor Relationship Specialty Start Date End Date Ewa Alejandro M.D. PCP - General 03/13/17 01/09/[address] [phone] documented as of this encounter
--- OUTSIDE RECORDS SUMMARY | 2022-05-27 12:10 | XMS_ITS | Encounter Summary ---
:1945 Author Organization [facility] Address [address] [place] [address] Care Team Providers Name Role Phone Ewa Alejandro M.D. Primary Care Provider [phone] Encounter Details Date Type Department Care Team Description 04/21/2018 Nurse Triage Department of [facility], Alysha Duque Medicine, [facility], R.N. in [place], [place] [address] [place] [address] Social History Tobacco Use Types Packs/Day Years [...] do you attend jainism or Never 2021 evangelical services? Do you [...] on filedocumented in this encounter Care Teams Farm Operations Technical Director Relationship Specialty Start Date End Date Ewa Alejandro M.D. PCP - General 03/13/17 01/09/[address] [phone] documented as of this encounter
--- OUTSIDE RECORDS SUMMARY | 2022-05-27 12:10 | XMS_ITS | Encounter Summary ---
:1945 Author Organization [facility] Address [address] [place] [address] Care Team Providers Name Role Phone Ewa Alejandro M.D. Primary Care Provider [phone] Encounter Details Date Type Department Care Team Description 02/20/2018 Clinical Communication Department of Anjana Boateng, Medicine, [place] [facility], [facility], [address] [place], [place] [address] [facility] [address] [place], [place] [phone] (Work) [phone] Social History Tobacco Use Types Packs/Day Years [...] do you attend taoism or Never 2021 jew services? Do you [...] Telephone Encounter - Jacquie Hamilton, L.P.N. - 02/20/2018 8:47 AM CDT Prescription for lomotil faxed to [facility]. Unable to contact patient to make aware mailbox full documented in this encounter Plan of Treatment Not on filedocumented as of this encounter Visit Diagnoses Not on filedocumented in this encounter Care Teams Web Site Project Manager Relationship Specialty Start Date End Date Ewa Alejandro M.D. PCP - General 03/13/17 01/09/[address] [phone] documented as of this encounter
--- OUTSIDE RECORDS SUMMARY | 2022-05-27 12:10 | XMS_ITS | Encounter Summary ---
:1945 Author Organization [facility] Address [address] [place] [address] Care Team Providers Name Role Phone Ewa Alejandro M.D. Primary Care Provider [phone] Encounter Details Date Type Department Care Team Description 02/19/2018 Hospital Encounter Department of Laboratory Sunny [place], Dehydration Medicine [place] 225 [facility] [address] [place], [place] [phone] (Wo rk) Social History Tobacco Use Types [...] do you attend baptist or Never 2021 protestant services? Do you [...] (02/19/2018 9:34 AM CDT) Analysis Performed At [facility] Time Signature Potassium, S 5.0 3.6 - 5.2 02/19/2018 [facility] mmol/L 3:28 PM [facility] Sodium, S 143 135 - 145 02/19/2018 [facility] mmol/L 3:28 PM [facility] Chloride, S 105 98 - 107 02/19/2018 [facility] mmol/L 3:28 PM [facility] Bicarbonate, S 22 22 - 29 02/19/2018 [facility] mmol/L 1:55 PM [facility] Anion Gap 16 (H) 7 - 15 02/19/2018 [facility] 3:28 PM [facility] BUN (Blood Urea 43 (H) 8 - 24 02/19/2018 [facility] Nitrogen), S mg/dL 1:55 PM [facility] Creatinine 1.49 (H) 0.74 - 02/19/2018 [facility] 1.35 mg/dL 1:55 [facility] eGFR-Non 46 (L) >=60 02/19/2018 [facility] Black/ mL/min/BSA 1:[address] [facility] [address] Comment: ----ADDITIONAL INFORMATION---- Estimated GFR calculated using the 2009 CKD_EPI creatinine equation. eGFR-Black/ 53 (L) >=60 mL/min/BSA 02/19/2018 1:55 [facility] [employer] [facility] Comment: ----ADDITIONAL INFORMATION---- Estimated GFR calculated using the 2009 CKD_EPI creatinine equation. Calcium, Total, S 9.3 8.8 - 10.2 mg/dL 02/19/2018 1:55 PM [facility] [place] [facility] Glucose, S 292 (H) 70 - 140 mg/dL 02/19/2018 1:55 PM [facility] [place] [facility] Specimen Anatomical Collection Method Collection Time Receive d Time (Source) Location / / Volume Laterality Blood (Blood, 02/19/2018 9:34 AM 02/20/20 18 Venous) CDT 11:18 AM CDT Sunny Martinez P.A.-C. LAB BLOOD ADD-ON Performing Organization Address City/State/ZIP Code Phon e Number [facility] [address], [place] [address] [place] [facility] [address] LAB documented in this encounter Visit Diagnoses Diagnosis Dehydration documented in this encounter Care Teams Veterinary Medical Officer Relationship Specialty Start Date End Date Ewa Alejandro M.D. PCP - General 03/13/17 01/09/[address] [phone] documented as of this encounter
--- OUTSIDE RECORDS SUMMARY | 2022-05-27 12:10 | XMS_ITS | Encounter Summary ---
:1945 Author Organization [facility] Address [address] [place] [address] Care Team Providers Name Role Phone Ewa Alejandro M.D. Primary Care Provider Encounter Details Date Type Department Care Team Description 04/28/2018 Hospital Encounter Department of Lea Hall es [facility] Laboratory Medicine Ewa brunson, Type 2 (HCC) in [place] [address] [place] [phone] Social History Tobacco Use Types Packs/Day [...] you attend roman catholic or Never 2021 rastafarian services? Do you [...] Potassium, S 4.7 3.6 - 5.2 04/28/2018 [facility] mmol/L 12:03 PM [facility] Sodium, S 138 135 - 145 04/28/2018 [facility] mmol/L 12:03 PM [facility] Chloride, S 104 98 - 107 04/28/2018 [facility] mmol/L 12:03 PM [facility] Bicarbonate, S 23 22 - 29 04/28/2018 [facility] mmol/L 12:03 PM T [facility] [place] [facility] Anion Gap 11 7 - 15 04/28/2018 [facility] 12:03 PM T [facility] BUN (Blood Urea 34 (H) 8 - 24 04/28/2018 [facility] Nitrogen), S mg/dL 12:[address] [facility] Creatinine 1.31 0.74 - 04/28/2018 [facility] 1.35 mg/dL 12:[address] [facility] eGFR-Non 53 (L) >=60 04/28/2018 [facility] Black/ mL/min/BSA 12:03 PM T [facility] Comment: ----ADDITIONAL INFORMATION---- Estimated GFR calculated using the 2009 CKD_EPI creatinine equation. eGFR-Black/ 62 >=60 mL/min/BSA 2017 12:03 PM [facility] [employer] [facility] LAB Comment: ----ADDITIONAL INFORMATION---- Estimated GFR calculated using the 2009 CKD_EPI creatinine equation. Calcium, Total, S 8.7 (L) 8.8 - 10.2 mg/dL 04/28/2018 1 2:03 PM [facility] Glucose, S 220 (H) 70 - 140 mg/dL 04/28/2018 12:03 PM [facility] Specimen Anatomical Collection Method Collection Time Receive d Time (Source) Location / / Volume Laterality Blood (Blood, 04/28/2018 8:48 AM 04/28/20 18 Venous) CDT 10:59 AM CDT Ewa Alejandro M.D. LAB BLOOD ADD-ON Performing Organization Address City/State/ZIP Code Phon e Number [facility] [address] [place] [address] LAB (ABNORMAL) Hemoglobin A1c (04/28/2018 8:48 AM CDT) P athologist Signature Hemoglobin A1c, 8.9 (H) 4.2 - 5.6 04/28/2018 [facility] B % 1:25 PM CDT [facility] Comment: Hemoglobin A1c values [...] City/State/ZIP Code Phon e Number [facility] [address] [place] [address] LAB AST (Aspartate Aminotransferase) (04/28/2018 8:48 AM CDT) [facility] gist Method Time Signature Aspartate 17 8 - 48 04/28/2018 [facility] Aminotransferase U/L 12:03 PM CDT [facility] [facility] Specimen Anatomical Collection Method Collection Time Receive d Time (Source) Location / / Volume Laterality Blood (Blood, 04/28/2018 8:48 AM 04/28/20 18 Venous) CDT 10:59 AM CDT Ewa Alejandro M.D. LAB BLOOD ADD-ON Performing Organization Address City/State/ZIP Code Phon e Number [facility] [address] [place] [address] LAB (ABNORMAL) Lipid Panel (04/28/2018 8:48 AM CDT) P athologist Signature Cholesterol, 193 mg/dL 04/28/2018 [facility] Total 12:03 PM CDT [facility] Comment: ----REFERENCE VALUE---- Desirable: < 200 Borderline high: 200 - 239 High: > or = 240 Triglycerides 402 (H) mg/dL 04/28/2018 2:48 PM CDT [facility] [place] Comment: ----REFERENCE VALUE---- Normal: <150 Borderline high: 150-199 High: 200-499 Very high: > or =500 Cholesterol, HDL, S 33 (L) >=40 mg/dL 04/28/2018 2:48 PM CDT [facility] Calculated LDL CANCELED mg/dL 04/28/2018 2:48 PM CDT [facility] Comment: Triglyceride >400 mg/dL. Calculated LDL cholesterol is not valid. Non-HDL cholesterol may be used f or cardiovascular disease risk assessment when triglycerid es are >400 mg/dL. Result canceled by the ancillary Cholesterol, Non-HDL, 160 (H) mg/dL 04/28/2018 2:48 PM CDT [facility] AMANDA GAMBOA Comment: ----REFERENCE VALUE---- Desirable: <130 Above Desirable: 130-159 Borderline high: 160-189 High: 190-219 Very high: > or =220 Specimen Anatomical Collection Method Collection Time Receive d Time (Source) Location / / Volume Laterality Blood (Blood, 04/28/2018 8:48 AM 04/28/20 18 Venous) CDT 10:59 AM CDT Ewa Alejandro M.D. LAB BLOOD ADD-ON Performing Organization Address City/State/ZIP Code Phon e Number [facility] [address] [place] [address] LAB documented in this encounter Visit Diagnoses Diagnosis Diabetes Mellitus Type 2 (HCC) documented in this encounter Additional Health Concerns Assessment Noted Time PHQ-9 Depression Total Score: 18 04/28/2018 11:27 AM C DT documented as of this encounter Care Teams Metallurgical Engineer Relationship Specialty Start Date End Date Ewa Alejandro M.D. PCP - General 03/13/17 01/09/[address] [phone] documented as of this encounter
--- OUTSIDE RECORDS SUMMARY | 2022-05-27 12:10 | XMS_ITS | Encounter Summary ---
:1945 Author Organization [facility] Address [address] [place] [address] Care Team Providers Name Role Phone Ewa Alejandro M.D. Primary Care Provider Encounter Details Date Type Department Care Team Description 02/16/2018 Hospital Encounter Department of Laboratory Kirill Nicholas Diarrhea Medicine in [place], M.D. [place] [address] [place] [phone] Social History Tobacco Use Types Packs/Day Years [...] do you attend buddhism or Never 2021 nondenominational services? Do you [...] athologist Signature C. difficile Negative Negative 02/17/2018 [facility] Toxin PCR, F 10:41 PM [facility] Comment: Notes\S\\S\Jonnathan Costa as [id number] Specimen Anatomical Collection Method Collection Time Receive d Time (Source) Location / / Volume Laterality Stool (Stool) 02/17/2018 8:00 AM 02/18/20 18 9:54 CDT PM CDT Ewa Alejandro M.D. LAB MICROBIOLOGY - GEN ERAL ORDERABLES Performing Organization Address City/State/ZIP Code Phon e Number [facility] [address] [place] [address] [facility] documented in this encounter Visit Diagnoses Diagnosis Diarrhea documented in this encounter Care Teams Consumer Credit Counselor Relationship Specialty Start Date End Date Ewa Alejandro M.D. PCP - General 03/13/17 01/09/20 [address], [place] [address] documented as of this encounter
--- OUTSIDE RECORDS SUMMARY | 2022-05-27 12:10 | XMS_ITS | Encounter Summary ---
:1945 Author Organization [facility] Address [address] [place] [address] Care Team Providers Name Role Phone Ewa Alejandro M.D. Primary Care Provider [phone] Encounter Details Date Type Department Care Team Description 02/17/2018 Hospital Encounter Department of Lea french Renal Laboratory Medicine Ewa brunson in [place], M.D. [place] [address] [place] [phone] Social History Tobacco Use Types Packs/Day [...] do you attend holiness or Never 2021 oriental orthodox services? Do [...] (02/17/2018 10:41 AM CDT) [facility] Signature Potassium, S 5.0 3.6 - 5.2 02/17/2018 [facility] mmol/L 1:45 PM [facility] Sodium, S 134 (L) 135 - 145 02/17/2018 [facility] mmol/L 1:45 PM [facility] Chloride, S 98 98 - 107 02/17/2018 [facility] mmol/L 1:45 PM [facility] Bicarbonate, S 21 (L) 22 - 29 02/17/2018 [facility] mmol/L 1:45 PM [facility] Anion Gap 15 7 - 15 02/17/2018 [facility] 1:45 PM [facility] BUN (Blood Urea 69 (H) 8 - 24 02/17/2018 [facility] Nitrogen), S mg/dL 1:45 PM [facility] Creatinine 2.22 (H) 0.74 - 02/17/2018 [facility] 1.35 mg/dL 1:45 PM [facility] eGFR-Non 28 (L) >=60 02/17/2018 [facility] Black/ mL/min/BSA 1:45 PM [facility] Comment: ----ADDITIONAL INFORMATION---- Estimated GFR calculated using the 2009 CKD_EPI creatinine equation. eGFR-Black/ 33 (L) >=60 mL/min/BSA 02/17/2018 1:45 [facility] Comment: ----ADDITIONAL INFORMATION---- Estimated GFR calculated using the 2009 CKD_EPI creatinine equation. Calcium, Total, S 9.3 8.8 - 10.2 mg/dL 02/17/2018 1:[address] [facility] Glucose, S 336 (H) 70 - 140 mg/dL 02/17/2018 1:45 PM [facility] Specimen Anatomical Collection Method Collection Time Receive d Time (Source) Location / / Volume Laterality Blood (Blood, 02/17/2018 10:41 02/17/2018 Venous) AM CDT 12:54 PM CDT Ewa Alejandro M.D. LAB BLOOD ADD-ON Performing Organization Address City/State/ZIP Code Phon e Number [facility] [address] [place] [address] LAB documented in this encounter Visit Diagnoses Diagnosis Insufficiency Renal documented in this encounter Care Teams Clinic Physician Director Relationship Specialty Start Date End Date Ewa Alejandro M.D. PCP - General 03/13/17 01/09/202199 [place] [address] documented as of this encounter
--- OUTSIDE RECORDS SUMMARY | 2022-05-27 12:10 | XMS_ITS | Encounter Summary ---
:1945 Author Organization [facility] Address [address] [place] [address] Care Team Providers Name Role Phone Ewa Alejandro M.D. Primary Care Provider Reason for Visit Reason Comments Follow-up Last visit 05/02/16 Continues to have balance problems. Had MRI brain 09/17/18. Outpatient (Routine) - Closed Specialty Diagnoses / Procedures Referred By Contact Refer red To Contact Neurology Diagnoses Dizziness And Giddiness ARMAAN Alejandro [facility] [place] [address] [place] [address] Referral ID Status Reason Start Date Expiration Date Visits V isits Requested Authorized [id number] Closed Specialty 10/20/2017 04/18/2018 1 1 Services Required Encounter Details Date Type Department Care Team Description 10/30/2017 Office Visit Department of Ewa Evans M.D. [address] [place] [address] Dizziness And Giddiness Neurology in [place] Lala M.D., M.P.H. [address] [place] [address] [phone] Social History Tobacco Use Types Packs/Day Years [...] do you attend alevism or Never 2021 moravian services? Do you [...] Comments Blood Pressure 128/72 10/30/2017 1:02 PM SINGLE ENDING MACHINE OPERATOR Pulse 79 10/30/2017 12:55 PM SINGLE ENDING MACHINE OPERATOR Temperature - - Respiratory Rate - - Oxygen Saturation - - Inhaled Oxygen Concentration - - Weight 111 kg (244 lb 0.8 oz) 10/30/2017 12:55 PM SINGLE ENDING MACHINE OPERATOR Height - - Body Mass Index 31.32 10/20/2017 10:36 AM SINGLE ENDING MACHINE OPERATOR documented in this encounter Consult Notes Tae [...] blood pressure has been addressed at the [facility] where a clinical pharmacist started amlodipine [...] when they are having an annual related [place] libertarian that when he got home he woke [...] was 65 minutes with 40 in counseling. LE ENDING MACHINE OPERATOR documented in this encounter Plan of Treatment Not on filedocumented as of this encounter Visit Diagnoses Diagnosis Dizziness And Giddiness documented in this encounter Care Teams Digital Printer Relationship Specialty Start Date End Date Ewa Alejandro M.D. PCP - General 03/13/17 01/09/[address] [phone] documented as of this encounter
--- OUTSIDE RECORDS SUMMARY | 2022-05-27 12:10 | XMS_ITS | Encounter Summary ---
:1945 Author Organization [facility] Address [address] [place] [address] Care Team Providers Name Role Phone Ewa Alejandro M.D. Primary Care Provider [phone] Reason for Referral Outpatient (Routine) - Closed Specialty Diagnoses / Procedures Referred By Contact Refer red To Contact Neurology Diagnoses Dizziness And Giddiness ARMAAN Alejandro [facility] Felicita Mcneil M.D. [address], [place] [address] Referral ID Status Reason Start Date Expiration Date Visits V isits Requested Authorized [id number] Closed Specialty 10/20/2017 04/18/2018 1 1 Services Required FICIAL PEARL MAKER Reason for Visit Reason Comments Dizziness noted to have been started s cony cardiac medication changes Encounter Details Date Type Department Care Team Description 10/20/2017 Office Visit Department of Family Philip Echeverria ziness And Giddiness Medicine, Ewa Barclay, (Primary Dx) Clinic, in [place] [address] [place] [phone] [phone] Social History Tobacco Use Types Packs/Day Years [...] do you attend advent or Never 2021 episcopal services? Do you [...] Comments Blood Pressure 128/68 10/20/2017 10:45 AM ARTIFICIAL PEARL MAKER Pulse 76 10/20/2017 10:36 AM ARTIFICIAL PEARL MAKER Temperature 36.6 ??C (97.9 ??F) 10/20/2017 10:36 AM ARTIFICIAL PEARL MAKER Respiratory Rate 16 10/20/2017 10:36 AM ARTIFICIAL PEARL MAKER Oxygen Saturation 96% 10/20/2017 10:36 AM ARTIFICIAL PEARL MAKER room a ir Inhaled Oxygen Concentration - - Weight 110 kg (242 lb 13.4 oz) 10/20/2017 10:36 AM ARTIFICIAL PEARL MAKER Height 188 cm (6' 2.02) 10/20/2017 10:36 AM ARTIFICIAL PEARL MAKER Body Mass Index 31.16 10/20/2017 10:36 AM ARTIFICIAL PEARL MAKER documented in this encounter Progress Notes Ewa [...] Asthma NOS Pulmonary symptomatology, diagnosis at the [place] unclear, [...] 08/28/[address] Prasanna Bernal at the [facility]. ??? TONSILLECTOMY N/A PREVENTIVE SERVICES Social [...] behalf by Karen Givens, a trained medical lab director. The creation of this record is based on the scribe's personal observations and the provider's statements to them. This document has been ch ecked and approved by the attending provider. FICIAL PEARL MAKER documented in this encounter Plan of Treatment Scheduled Referrals Name Type Priority Associated Diagnoses [facility] - General Outpatient Referral Routine Dizziness And Expected: consult (clinic) Giddiness 10/20/2017 (Approximate), Expires: 10/20/2020 documented as of this encounter Visit Diagnoses Diagnosis Dizziness And Giddiness - Primary documented in this encounter Care Teams Pipe Fitter Welding Relationship Specialty Start Date End Date Ewa Alejandro M.D. PCP - General 03/13/17 01/09/20 [address] [place] [phone] documented as of this encounter
--- OUTSIDE RECORDS SUMMARY | 2022-05-27 12:10 | XMS_ITS | Encounter Summary ---
:[address] [facility] Address [address] [place] [address] Care Team Providers Name Role Phone Ewa Alejandro M.D. Primary Care Provider [phone] Reason for Referral Outpatient (Routine) - Closed Specialty Diagnoses / Procedures Referred By Contact Refer red To Contact Diagnoses Cancer Bladder Family History Prasanna Bernal M.D. 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 09/18/17 11:19 AM STANT PROFESSOR OF DIETETICS documented in this encounter Plan of Treatment Scheduled Orders Name Type Priority Associated Diagnoses Order S chedule Cystoscopy (specific Procedure Routine Cancer Bladder Famil y Expected: provider) History 01/15/2018 (Approximate), Expires: 2019 documented as of this encounter Procedures Procedure Name Priority Date/Time Associated Diagnosis Comme nts CYTOLOGY NON-HEAD MACHINE FEEDER Routine 09/18/2017 11:01 AM Cancer Bladder Re sults for this ASSISTANT PROFESSOR OF DIETETICS Family History procedure are in the results section. UROVYSION (R) FOR Routine 09/18/2017 11:01 AM Cancer Bladder R esults for this BLADDER CANCER ASSISTANT PROFESSOR OF DIETETICS Family History procedure a re in the results section. documented in this encounter Results UroVysion for Detection of Bladder Cancer, Urine (09/18/2017 11:01 AM [facility]) Component Value Ref Test Analysis Performed At [facility] Range Method Time Signature Result Summary Negative 09/30/2017 [facility] 8:56 AM LABORATORIES - [facility] Karyotype No evidence of 09/30/2017 [facility] urothelial 8:56 AM LABORATORIES - carcinoma. [facility] Reason for Evaluate for 09/30/2017 [facility] referral urothelial 8:56 AM LABORATORIES - carcinoma. [facility] Specimen Varies 09/30/2017 [facility] 8:56 AM [facility] - [facility] Source Urine, NOS 09/30/2017 [facility] 8:56 AM LABORATORIES - [facility] Released By Miguelito Machuca 09/30/2017 [facility] Pato Crowell, 8:56 AM LABORATORIES - Ph.D. [facility] Interpretation This test result does not rule out the possibility t hat the 09/30/2017 [facility] patient may have a low-grade (i.e. grade 1 or 2) 8:56 AM LABORATORIES - non-invasive papillary urothelial carcinoma. Some patients [facility] with low grade non-invasive papillary urothelial carcinoma CAMPUS do not have abnormalities with this FISH test. Comment: Interpreted by: Miguelito Crowell M.D., Ph.D., Signed on 09/30/2017 at 08:56 ----ADDITIONAL INFORMATION---- This test has been modified from the [place] ufacturer's instructions. Its performance characteristics were determi darnell by [facility] in a manner consistent with CLIA [...] (Urine, 09/18/2017 11:01 7 8:35 Voided) AM ASSISTANT PROFESSOR OF DIETETICS AM ASSISTANT PROFESSOR OF DIETETICS Narrative This result has an attachment that is no t available. Prasanna Bernal M.D. LAB GENETIC TESTING Performing Organization Address City/State/ZIP Code Phon e Number [facility] LABORATORIES - [address] [place], [place] [address] [employer] [facility] [employer] [facility] Pathology Non-HEAD MACHINE FEEDER Cytology (09/18/2017 11:01 AM ASSISTANT PROFESSOR OF DIETETICS) Component Value Ref Test Analysis Performed At [facility] gist Range Method Time Signature Gross Description Received 20 09/19/2017 [facility] IC ml of yellow 3:31 PM [facility] alcohol fixed SYSTEM- [facility] . [facility] CYT[facility] Collection CYTNG 09/19/2017 [facility] Procedure 3:31 PM [facility] CYTOLOGY Fixative 50% reagent 09/19/2017 [facility] alcohol 3:31 PM [facility] CYTOLOGY Source A. Urine, 09/19/2017 [facility] Midstream, 3:31 PM [facility] voided [facility] CYTOLOGY Clinical History Cancer 09/19/2017 [facility] Bladder 3:31 PM [facility] CYTOLOGY Report Jose Khan MD 09/19/2017 [facility] electronically I verify that I have examined all relevant slides/ma terials 3:31 PM [facility] signed by for the specimen(s) and rendered or confirmed the [facility] CYTOLOGY 09/19/2017 [facility] 3:31 PM [facility] CYTOLOGY Interpretation A. Urine, Midstream, voided (cytospin): Negative for 09/19/2017 [facility] High-Grade Urothelial Carcinoma. 3:31 PM [facility] CYTOLOGY Comment: Interpreted by: Jose lord MD, Signed on 09/19/2017 at 15:31 Specimen Anatomical Collection Method Collection Time Receive d Time (Source) Location / / Volume Laterality Varies 09/18/2017 11:01 09/19/2017 7:12 AM ASSISTANT PROFESSOR OF DIETETICS AM ASSISTANT PROFESSOR OF DIETETICS Narrative This result has an attachment that is no t available. Prasanna Bernal M.D. LAB SURG PATH ORDERABLES Performing Organization Address City/[facility]/ZIP Code Phon e Number [facility]- [address] [place] [address] [facility]- [address] [place] [address], U [facility] CYTOLOGY documented in this encounter Visit Diagnoses Diagnosis 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 (HCC) - Primary Cancer Bladder Family History documented in this encounter Care Teams Sales And Distribution Clerk Relationship Specialty Start Date End Date Ewa Alejandro M.D. PCP - General 03/13/17 01/09/20 [address] [place] [phone] documented as of this encounter
--- OUTSIDE RECORDS SUMMARY | 2022-05-27 12:10 | XMS_ITS | Encounter Summary ---
:1945 Author Organization [facility] Address [address] [place] [address] Care Team Providers Name Role Phone Ewa Alejandro M.D. Primary Care Provider [phone] Reason for Visit Reason Comments Follow-up review labs completed on and cystology completed on 01/19/2018 Appointment Request (Routine) - Closed Specialty Diagnoses / Procedures Referred By Contact Refer red To Contact Family Medicine Referral ID Status Reason Start Date Expiration Date Visits Requ ested Visits Authorized [id number] Closed 01/19/2018 07/18/2018 1 1 Encounter Details Date Type Department Care Team Description 01/26/2018 Office Visit Department of Family Philip trimble Mellitus Type Medicine, Ewa Barclay, 2 (HCC) (Primary Dx) Clinic, in [place] [address] [place] [phone] Social History Tobacco Use Types Packs/Day Years [...] do you attend baptist or Never 2021 gnosticist services? Do you belong to any clubs or No 10/09/2021 organizations such as baptist groups, unions, fraCRAVE or athletic groups, or school groups? How [...] 08/28/[address] Prasanna Bernal at the [facility]. ??? TONSILLECTOMY N/A PREVENTIVE [...] their behalf by Karen Givens, a trained certified medical assistant. The creation of this record is based on the scribe's personal observations and the provider's statements to them. This document has been ch ecked and approved by the attending provider. documented in this encounter Plan of Treatment Not on filedocumented as of this encounter Results (ABNORMAL) Microalbumin, Random, Urine (04/28/2018 8:49 AM CDT) [facility] Method Time Signature Microalbumin 613.6 mg/L 04/28/2018 [facility] 2:46 PM CDT [facility] Creatinine 133 mg/dL 04/28/2018 [facility] 2:46 PM CDT [facility] Albumin/Creatinin 461 (H) <17 mg/g 04/28/2018 [facility] e Ratio 2:46 PM CDT [facility] Specimen Anatomical Collection Method Collection Time Receive d Time (Source) Location / / Volume Laterality Urine (Urine, 04/28/2018 8:49 AM 04/28/20 18 Clean Catch) CDT 10:59 AM CDT Ewa Alejandro M.D. LAB URINE ORDERABLES Performing Organization Address City/State/ZIP Code Phon e Number [facility] [address] [place] [address] LAB (ABNORMAL) BMP (Basic Metabolic Panel) (04/28/2018 8:48 AM [facility]) P athologist Signature Potassium, S 4.7 3.6 - 5.2 04/28/2018 [facility] mmol/L 12:[address] [facility] Sodium, S 138 135 - 145 04/28/2018 [facility] mmol/L 12:[address] [facility] Chloride, S 104 98 - 107 04/28/2018 [facility] mmol/L 12:[address] [facility] Bicarbonate, S 23 22 - 29 04/28/2018 [facility] mmol/L 12:[address] [facility] Anion Gap 11 7 - 15 04/28/2018 [facility] 12:[address] [facility] BUN (Blood Urea 34 (H) 8 - 24 04/28/2018 [facility] Nitrogen), S mg/dL 12:[address] [facility] Creatinine 1.31 0.74 - 04/28/2018 [facility] 1.35 mg/dL 12:[address] [facility] eGFR-Non 53 (L) >=60 04/28/2018 [facility] Black/ mL/min/BSA 12:03 PM [facility] Weroom [facility] [place] [facility] Comment: ----ADDITIONAL INFORMATION---- Estimated GFR calculated using the 2009 CKD_EPI creatinine equation. eGFR-Black/ 62 >=60 mL/min/BSA 2017 12:03 PM [facility] [place] [facility] Comment: ----ADDITIONAL INFORMATION---- Estimated GFR calculated using the 2009 CKD_EPI creatinine equation. Calcium, Total, S 8.7 (L) 8.8 - 10.2 mg/dL 04/28/2018 1 2:03 PM [facility] [place] [facility] Glucose, S 220 (H) 70 - 140 mg/dL 04/28/2018 12:[address] [facility] [place] [facility] Specimen Anatomical Collection Method Collection Time Receive d Time (Source) Location / / Volume Laterality Blood (Blood, 04/28/2018 8:48 AM 04/28/20 18 Venous) CDT 10:59 AM CDT Authorizing Provider Result Deloris Alejandro M.D. LAB BLOOD ADD-ON Performing Organization Address City/[facility]/ZIP Code Phon e Number [facility] [address] [place] [address] LAB (ABNORMAL) Hemoglobin A1c (04/28/2018 8:48 AM CDT) P athologist Signature Hemoglobin A1c, 8.9 (H) 4.2 - 5.6 04/28/2018 [facility] B % 1:25 PM CDT [facility] Comment: Hemoglobin A1c values greater [...] 04/28/20 18 Venous) CDT 10:59 AM CDT wEa Alejandro M.D. LAB BLOOD ADD-ON Performing Organization Address City/[facility]/ZIP Code Phon e Number [facility] [address], [place] [address] LAB AST (Aspartate Aminotransferase) (04/28/2018 8:48 AM CDT) Patholo gist Method Time Signature Aspartate 17 8 - 48 04/28/2018 [facility] Aminotransferase U/L 12:03 PM CDT [place] (AST), [facility] Specimen Anatomical Collection Method Collection Time Receive d Time (Source) Location / / Volume Laterality Blood (Blood, 04/28/2018 8:48 AM 04/28/20 18 Venous) CDT 10:59 AM CDT Ewa Alejandro M.D. LAB BLOOD ADD-ON Performing Organization Address City/State/ZIP Code Phon e Number [facility] [place] [address] [place] [address] LAB (ABNORMAL) Lipid Panel (04/28/2018 8:48 AM CDT) P athologist Signature Cholesterol, 193 mg/dL 04/28/2018 [facility] Total 12:03 PM CDT [facility] [place] [facility] Comment: ----REFERENCE VALUE---- Desirable: < 200 Borderline high: 200 - 239 High: > or = 240 Triglycerides 402 (H) mg/dL 04/28/2018 2:48 PM CDT [facility] [place] [facility] Comment: ----REFERENCE VALUE---- Normal: <150 Borderline high: 150-199 High: 200-499 Very high: > or =500 Cholesterol, HDL, S 33 (L) >=40 mg/dL 04/28/2018 2:48 PM CDT [facility] [place] [facility] Calculated LDL CANCELED mg/dL 04/28/2018 2:48 PM CDT [facility] [place] [facility] Comment: Triglyceride >400 mg/dL. Calculated LDL cholesterol is not valid. Non-HDL cholesterol may be used f or cardiovascular disease risk assessment when triglycerid es are >400 mg/dL. Result canceled by the ancillary Cholesterol, Non-HDL, 160 (H) mg/dL 04/28/2018 2:48 PM CDT [facility] [place] Comment: ----REFERENCE VALUE---- [...] Address City/State/ZIP Code Phon e Number [facility] [address], [place] [address] LAB documented in this encounter Visit Diagnoses Diagnosis Diabetes Mellitus Type 2 (HCC) - Primary documented in this encounter Care Teams Hired Hand Relationship Specialty Start Date End Date Ewa Alejandro M.D. PCP - General 03/13/17 01/09/[address] [place] [phone] documented as of this encounter
--- OUTSIDE RECORDS SUMMARY | 2022-05-27 12:10 | XMS_ITS | Encounter Summary ---
:1945 Author Organization [facility] Address [address] [place] [address] Care Team Providers Name Role Phone Ewa Alejandro M.D. Primary Care Provider [phone] Reason for Visit Reason Comments Follow-up final episode of diarrhea oc cured on 02/22/2018 with patient now having upper abdominal discomfort Appointment Request (Routine) - Closed Specialty Diagnoses / Procedures Referred By Contact Refer red To Contact Family Medicine Referral ID Status Reason Start Date Expiration Date Visits Requ ested Visits Authorized [id number] Closed 02/18/2018 02/18/2019 1 1 Encounter Details Date Type Department Care Team Description 02/25/2018 Office Visit Department of Family Alicia ch (Primary Dx); Medicine, Ewa Turner, Joseffi ciency Renal; Clinic, in [place] Diabetes Mellitus Type 2 (HCC) [place] [address] [place] [phone] Social History Tobacco Use Types Packs/Day Years [...] do you attend mandaen or Never 2021 baptist services? Do you belong to any clubs or No 10/09/2021 organizations such as mandaen groups, unions, fraGlowbl or athletic groups, or school groups? How [...] at 2.22 and he subsequently went to [facility] for IV fluids. Labs were rechecked again [...] 08/28/[address] Prasanna Bernal at the [facility]. ??? TONSILLECTOMY N/A PREVENTIVE SERVICES Social [...] DIAGNOSTICS CT abdomen/pelvis obtained on 02/16/2018 at [facility]: FINDINGS: Abdomen: No liver lesions. [...] behalf by Lulu Roldan, a trained medical coding auditor. The creation of this record is based on the scribe's personal observations and the provider's statements to them. This document has been christie cked and approved by the attending provider. documented in this encounter Plan of Treatment Not on filedocumented as of this encounter Visit Diagnoses Diagnosis Diarrhea - Primary Insufficiency Renal Diabetes Mellitus Type 2 (HCC) documented in this encounter Care Teams Research Scientist Relationship Specialty Start Date End Date Ewa Alejandro M.D. PCP - General 03/13/17 01/09/20 [address] [place] [phone] documented as of this encounter
--- OUTSIDE RECORDS SUMMARY | 2022-05-27 12:10 | XMS_ITS | Encounter Summary ---
:1945 Author Organization [facility] Address [address] [place] [address] Care Team Providers Name Role Phone Ewa Alejandro M.D. Primary Care Provider [phone] Encounter Details Date Type Department Care Team Description 02/17/2018 Clinical Communication Department of Anjana Boateng, Medicine, [place] [facility], [facility], [address] [place], [place] [address] [facility] [address] [place], [place] [phone] (Work) [phone] Social History Tobacco Use Types Packs/Day Years [...] Telephone Encounter - Jacquie Hamilton, L.P.N. - 02/17/2018 8:42 AM CDT Call placed to patient for update on symptoms with patient stating he has no change in symptoms and will submitt stool sample today 02/17/2018 along with completion of labs ordered on 02/16/2018 documented in this encounter Plan of Treatment Not on filedocumented as of this encounter Visit Diagnoses Not on filedocumented in this encounter Care Teams Smoked Meat Preparer Relationship Specialty Start Date End Date Ewa Alejandro M.D. PCP - General 03/13/17 01/09/[address] [phone] documented as of this encounter
--- OUTSIDE RECORDS SUMMARY | 2022-05-27 12:10 | XMS_ITS | Encounter Summary ---
:1945 Author Organization [facility] Address [address] [place] [address] Care Team Providers Name Role Phone Ewa Alejandro M.D. Primary Care Provider [phone] Reason for Visit Reason Comments Diarrhea diarrhea x 10 days with 20 p ound weight loss. vomiting starting today Encounter Details Date Type Department Care Team Description 02/16/2018 Office Visit Department of [facility] Alicia ch (Primary Dx); Medicine, Ewa Turner Insuffi ciency Renal Clinic, [place] [address] [place] [phone] Social History Tobacco Use Types Packs/Day Years [...] do you attend hindu or Never 2021 restorationist services? Do you [...] 08/28/[address] Prasanna Bernal at the [facility]. ??? TONSILLECTOMY N/A PREVENTIVE SERVICES Social [...] and hyperkalemia Discussed sending him over to [facility] for IV fluids which he declines [...] behalf by Lulu Roldan, a trained medical surgical tech. The creation of this record is based [...] Potassium, S 5.0 3.6 - 5.2 02/17/2018 [facility] mmol/L 1:45 PM CDT [facility] [place] [facility] Sodium, S 134 (L) 135 - 145 02/17/2018 [facility] mmol/L 1:45 PM CDT [facility] [place] [facility] Chloride, S 98 98 - 107 02/17/2018 [facility] mmol/L 1:45 PM CDT [facility] [place] [facility] Bicarbonate, S 21 (L) 22 - 29 02/17/2018 [facility] mmol/L 1:45 PM CDT [facility] [place] [facility] Anion Gap 15 7 - 15 02/17/2018 [facility] 1:45 PM CDT [facility] [place] [facility] BUN (Blood Urea 69 (H) 8 - 24 02/17/2018 [facility] Nitrogen), S mg/dL 1:45 PM CDT [facility] [place] [facility] Creatinine 2.22 (H) 0.74 - 02/17/2018 [facility] 1.35 mg/dL 1:45 PM [facility] eGFR-Non 28 (L) >=60 02/17/2018 [facility] Black/ mL/min/BSA 1:45 PM T [facility] LAB Comment: ----ADDITIONAL INFORMATION---- Estimated GFR calculated using the 2009 CKD_EPI creatinine equation. eGFR-Black/ 33 (L) >=60 mL/min/BSA 02/17/2018 1:45 [facility] LAB Comment: ----ADDITIONAL INFORMATION---- Estimated GFR calculated using the 2009 CKD_EPI creatinine equation. Calcium, Total, S 9.3 8.8 - 10.2 mg/dL 02/17/2018 1:45 PM [facility] Glucose, S 336 (H) 70 - 140 mg/dL 02/17/2018 1:45 PM [facility] Specimen Anatomical Collection Method Collection Time Receive d Time (Source) Location / / Volume Laterality Blood (Blood, 02/17/2018 10:41 02/17/2018 Venous) AM CDT 12:54 PM CDT Ewa Alejandro M.D. LAB BLOOD ADD-ON Performing Organization Address City/State/ZIP Code Phon e Number [facility] [address] [place] [address] LAB C. difficile Toxin PCR, Feces (02/17/2018 8:00 AM CDT) P athologist Signature C. difficile Negative Negative 02/17/2018 [facility] Toxin PCR, F 10:[address] [facility] Comment: Notes\S\\S\Jonnathan Costa as [id number] Specimen Anatomical Collection Method Collection Time Receive d Time (Source) Location / / Volume Laterality Stool (Stool) 02/17/2018 8:00 AM 02/18/20 9:54 CDT PM CDT Ewa Alejandro M.D. LAB MICROBIOLOGY - GEN ERAL ORDERABLES Performing Organization Address City/State/ZIP Code Phon e Number [facility] [address] [place] [address] [place] [facility] GI Pathogen Panel, PCR, Feces (02/16/2018 1:00 PM CDT) [facility] Method Time Signature Specimen Source STOOL 02/17/2018 [facility] 6:26 AM CDT [facility] Campylobacter Negative Negative 02/17/2018 [facility] species 6:26 AM CDT [facility] C. difficile toxin Negative Negative 02/17/2018 [facility] 6:26 AM CDT [facility] Plesiomonas Negative Negative 02/17/2018 [facility] shigelloides 6:26 AM CDT [facility] Salmonella species Negative Negative 02/17/2018 [facility] 6:26 AM CDT [facility] Vibrio species Negative Negative 02/17/2018 [facility] 6:26 AM CDT [facility] Vibrio cholerae Negative Negative 02/17/2018 [facility] 6:26 AM CDT [facility] Yersinia species Negative Negative 02/17/2018 [facility] 6:26 AM CDT [facility] Enteroaggregative E. Negative Negative 02/17/2018 [facility] coli (EAEC) 6:26 AM CDT [facility] Enteropathogenic E. Negative Negative 02/17/2018 [facility] coli (EPEC) 6:26 AM CDT [facility] Enterotoxigenic E. Negative Negative 02/17/2018 [facility] coli (ETEC) 6:26 AM CDT [facility] Shiga toxin Negative Negative 02/17/2018 [facility] producing E. coli 6:26 AM CDT [facility] Shigella/Enteroinvas Negative Negative 02/17/2018 [facility] akil E. coli 6:26 AM CDT [facility] Cryptosporidium Negative Negative 02/17/2018 [facility] species 6:26 AM CDT [facility] Cyclospora Negative Negative 02/17/2018 [facility] cayetanensis 6:26 AM CDT [facility] Entamoeba Negative Negative 02/17/2018 [facility] histolytica 6:26 AM CDT [facility] Giardia Negative Negative 02/17/2018 [facility] 6:26 AM CDT [facility] Adenovirus F40/41 Negative Negative 02/17/2018 [facility] 6:26 AM CDT [facility] Astrovirus Negative Negative 02/17/2018 [facility] 6:26 AM CDT [facility] Norovirus GI/GII Negative Negative 02/17/2018 [facility] 6:26 AM CDT [facility] Rotavirus Ag, F Negative Negative 02/17/2018 [facility] 6:26 AM CDT [facility] Sapovirus Negative Negative 02/17/2018 [facility] 6:26 AM CDT [facility] Comment: ----ADDITIONAL INFORMATION---- This assay is performed using the FDA-cl eared FilmArray GI Panel ([employer] Specimen Anatomical Collection Method Collection Time Receive d Time (Source) Location / / Volume Laterality Stool (Stool) 02/16/2018 1:00 PM 02/17/20 18 CDT 11:25 PM CDT Ewa Alejandro M.D. LAB MICROBIOLOGY - GEN ERAL ORDERABLES Performing Organization Address City/State/ZIP Code Phon e Number [facility] [address] [place] [address] LAB (ABNORMAL) Comprehensive Metabolic Panel (02/16/2018 10:49 AM CDT) Analysis Performed At Patho logist Time Signature Potassium, S 5.5 (H) 3.6 - 5.2 02/16/2018 [facility] mmol/L 1:56 PM CDT [facility] Sodium, S 137 135 - 145 02/16/2018 [facility] mmol/L 1:56 PM [facility] Chloride, S 100 98 - 107 02/16/2018 [facility] mmol/L 1:56 PM CDT [facility] Bicarbonate, S 19 (L) 22 - 29 02/16/2018 [facility] mmol/L 1:56 PM CDT [facility] Anion Gap 18 (H) 7 - 15 02/16/2018 [facility] 1:56 PM [facility] [place] BUN (Blood Urea 66 (H) 8 - 24 02/16/2018 [facility] Nitrogen), S mg/dL 1:56 PM [facility] [place] Creatinine 2.32 (H) 0.74 - 02/16/2018 [facility] 1.35 mg/dL 1:56 PM [facility] [place] eGFR-Non 27 (L) >=60 02/16/2018 [facility] Black/ mL/min/BSA 1:56 PM [facility] [place] [facility] Comment: ----ADDITIONAL INFORMATION---- Estimated GFR calculated using the 2009 CKD_EPI creatinine equation. eGFR-Black/ 31 (L) >=60 mL/min/BSA 02/16/2018 1:56 [facility] [place] [facility] Comment: ----ADDITIONAL INFORMATION---- Estimated GFR calculated using the 2009 CKD_EPI creatinine equation. Calcium, Total, S 8.8 8.8 - 10.2 02/16/2018 7:45 PM ED [facility] mg/dL [facility] [place] Glucose, S 276 (H) 70 - 140 mg/dL 02/16/2018 1:56 PM [facility] [place] [facility] Protein, Total, S 7.0 6.3 - 7.9 g/dL 02/16/2018 1:56 P M [facility] [place] [facility] Albumin, S 4.4 3.5 - 5.0 g/dL 02/16/2018 1:56 PM [facility] [place] [facility] Aspartate 16 8 - 48 U/L 02/16/2018 1:56 PM [facility] Aminotransferase (AST), S [facility] [place] [facility] Alkaline Phosphatase, S 121 (H) 45 - 115 U/L 02/16/2018 1: 56 PM [facility] [place] [facility] Alanine Aminotransferase 17 7 - 55 U/L 02/16/2018 1:5 6 PM [facility] (ALT), S [facility] [place] Bilirubin, Total, S 0.6 <=1.2 mg/dL 02/16/2018 1:56 PM [facility] Specimen Anatomical Collection Method Collection Time Receive d Time (Source) Location / / Volume Laterality Blood (Blood, 02/16/2018 10:49 02/16/2018 1:03 Venous) AM CDT PM CDT Ewa Alejandro M.D. LAB BLOOD ADD-ON Performing Organization Address City/State/ZIP Code Phon e Number [facility] [address] [place] [address] LAB (ABNORMAL) CBC with Differential, Blood (02/16/2018 10:49 AM CDT) [facility] Method Time Signature Hemoglobin 14.8 13.2 - 02/16/2018 [facility] 16.6 g/dL 11:24 AM [facility] Hematocrit 41.0 38.3 - 02/16/2018 [facility] 48.6 % 11:24 AM [facility] Erythrocytes 4.76 4.35 - 02/16/2018 [facility] 5.65 11:24 AM CDT HEALTH x10(12)/L [employer] [facility] MCV 86.1 78.2 - 02/16/2018 [facility] 97.9 fL 11:24 AM [facility] RBC Distrib Width 13.4 11.8 - 02/16/2018 [facility] 14.5 % 11:24 AM [facility] Platelet Count 230 135 - 317 02/16/2018 [facility] x10(9)/L 11:24 AM [facility] Leukocytes 13.2 (H) 3.4 - 9.6 02/16/2018 [facility] x10(9)/L 11:24 AM [facility] Neutrophils 9.97 (H) 1.56 - 02/16/2018 [facility] 6.45 11:24 AM CDT [facility] x10(9)/L [facility] Lymphocytes 1.63 0.95 - 02/16/2018 [facility] 3.07 11:24 AM CDT [facility](9[facility] Monocytes 0.71 0.26 - 02/16/2018 [facility] 0.81 11:24 AM CDT [facility] x10(9)/L [facility] [place] [facility] Eosinophils 0.85 (H) 0.03 - 02/16/2018 [facility] 0.48 11:24 AM CDT HEALTH x10(9)/L [facility]- [place] [facility] Basophils 0.02 0.01 - 02/16/2018 [facility] 0.08 11:24 AM CDT [facility] x10(9)/L [facility]- [place] [facility] Specimen Anatomical Collection Method Collection Time Receive d Time (Source) Location / / Volume Laterality Blood (Blood, 02/16/2018 10:49 02/16/2018 Venous) AM CDT 10:52 AM CDT Ewa Alejandro M.D. LAB BLOOD ADD-ON Performing Organization Address City/State/ZIP Code Phon e Number [facility] [address] [place] [address] [place] [facility]- [address] [place] [address] [place] [facility] documented in this encounter Visit Diagnoses Diagnosis Diarrhea - Primary Insufficiency Renal documented in this encounter Care Teams Security Systems Integrator Relationship Specialty Start Date End Date Ewa Alejandro M.D. PCP - General 03/13/17 01/09/20 [address] [place] [phone] documented as of this encounter
--- OUTSIDE RECORDS SUMMARY | 2022-05-27 12:10 | XMS_ITS | Encounter Summary ---
:1945 Author Organization [facility] Address [address] [place] [address] Care Team Providers Name Role Phone Ewa Alejandro M.D. Primary Care Provider Reason for Visit Reason Comments Anxiety [facility] er vis it on 04/20/2018 with final dx of depression and anxiety Depression Appointment Request (Routine) - Closed Specialty Diagnoses / Procedures Referred By Contact Refer red To Contact Family Medicine Referral ID Status Reason Start Date Expiration Date Visits Requ ested Visits Authorized [id number] Closed 04/22/2018 04/22/2019 1 Encounter Details Date Type Department Care Team Description 04/28/2018 Office Visit Department of Family Philip trimble Mellitus Type 2 (HCC) (Primary Dx); Medicine, Ewa Barclay, Anxiety; Clinic, in [place] Depressive Disorder [place] [address] [facility] [address] [phone] Social History Tobacco Use Types Packs/Day Years [...] do you attend yazdanism or Never 2021 restorationism services? Do you belong to any clubs or No 10/09/2021 organizations such as yazdanism groups, unions, fraElement Designs or athletic groups, or school groups? How [...] Chief Complaint Patient presents with ??? Anxiety [facility] er visit on 04/20/2018 with final dx [...] disorder with anxiety. He was started on Kfiapcx75 mg once daily. He was also given [...] noted on exposed skin. DIAGNOSTICS Records from [facility] Emergency Department are reviewed. ASSESSMENT / PLAN [...] documented as of this encounter Care Teams Measurer Machine Relationship Specialty Start Date End Date Ewa Alejandro M.D. PCP - General 03/13/17 01/09/20 [address] [place] [phone] documented as of this encounter
--- OUTSIDE RECORDS SUMMARY | 2022-05-27 12:10 | XMS_ITS | Encounter Summary ---
:1945 Author Organization [facility] Address [address] [place] [address] Care Team Providers Name Role Phone Ewa Alejandro M.D. Primary Care Provider [phone] Encounter Details Date Type Department Care Team Description 02/20/2018 Orders Only Department of Family Mata , [facility] [address] [place] [phone] (Wo rk) Social History Tobacco Use Types [...] do you attend episcopal or Never 2021 gnosticism services? Do you [...] on filedocumented in this encounter Care Teams Site Lead Relationship Specialty Start Date End Date Ewa Alejandro M.D. PCP - General 03/13/17 01/09/20 [address] [place] [phone] documented as of this encounter
--- OUTSIDE RECORDS SUMMARY | 2022-05-27 12:11 | XMS_ITS | Encounter Summary ---
:1945 Author Organization [facility] Address [address] [place] [address] Care Team Providers Name Role Phone Unavailable Primary Care Provider Unavailable Encounter Details Date Type Department Care Team Description 02/27/2017 Hospital Encounter [facility]X [facility] Chase Luevano M.D. [address] [place], [place] [phone] (Wo rk) Social History [...] Result Name 02/28/2017 13:03 Document - DOC Non-CAREER SERVICES MANAGER Cytology Source: [facility] POWERCHART Document Id: [id number] Electronically signed by Karen [facility] Cancer Genetics Assistant [id number] at 04/01/2017 4:09 PM CDT Miscellaneous - Jacquie Hamilton, L.P.N. - 02/26/2017 9:42 AM CDT request for labs Document Contains Addenda Addendum by ANIBAL GOLD on February 27, 2017 07:33:03 CDT This is done. Addendum by JACQUIE HAMILTON LPN on February 26, 2017 17:19:40 CDT From: JACQUIE HAMILTON LPN ([facility] Nurse) To: [place] Rail Operator; Sent: 02/26/2017 17:19:40 CDT ! Subject: FW: request for labs Addendum by PIERO ROJAS MD on February 26, 2017 17:17:25 CDT From: PIERO ROJAS MD To: [facility] Nurse; Sent: 02/26/2017 17:17:25 CDT Subject: RE: request for labs I did order fasting labs From: JACQUIE HAMILTON LPN ([facility] Nurse) To: PIERO ROJAS MD; Sent: 02/26/2017 09:42:06 CDT ! Subject: request for labs Spoke with: ( _x ) Patient ( _ ) Parent ( _ ) Spouse ( _ ) Child ( ) Other: _ Call back telephone number: [phone]_ Reason for Call: -_request for labs Chief [...] mail (if applicable) Source/Reference used (if applicable): ems educator lynn_ OK to leave message on voice mail? yes_ OK to send message via patient portal? no_ Patient told to expect return call: ( x_ ) today ( _ ) tomorrow ( _ ) next work day Callers preferred language for Healthcare discussion: english_ Was an clinical quality manager used for this call? _no Other ( --_ ) Source: [facility] ReferralMD Document Id: [id number] Electronically signed by Conversion, [facility] Cancer Genetics Assistant [id number] at 04/01/2017 4:09 PM CDT documented in this encounter Plan of Treatment Not on filedocumented as of this encounter Procedures Procedure Name Priority Date/Time Associated Comments Diagnosis ZZPATHOLOGY NON-CAREER SERVICES MANAGER Routine 02/27/2017 9:09 AM Re sults for this CYTOLOGY CDT procedure are i n the results section. documented in this encounter Results ZZPATHOLOGY NON-CAREER SERVICES MANAGER CYTOLOGY (02/27/2017 9:09 AM CDT) Specimen (Source) Anatomical Collection Method Collection Time Re ceived Time Location / / Volume Laterality 02/27/2017 9:09 AM CDT Narrative [facility] - 02/28/2017 1:03 PM CDT [facility] [place] [address] [place] [address] ??[phone] Patient Name: BETH COSTA Patient ID #: [id number] Collected: 02/27/2017 Address: [facility]/State/Zip: [address] [place], [place] ??[phone] Received: Reported: 02/28/2017 02/28/2017 Soc. Sec. #: ?/Age/Sex 1 (Age: 71) ??M Physician(s): Juana LUEVANO MD Copy To: ? [facility] ??[id number] [address] [place] [address], ??[place] ??[phone] CYTOPATHOLOGY NON-CAREER SERVICES MANAGER REPORT FINAL CYTOLOGIC DIAGNOSIS Urine-VOIDED: NEGATIVE FOR HIGH-GRADE UROTHELIAL CARCINOMA SATISFACTORY SPECIMEN FOR EVALUATION. Electronically Signed By mpg/02/28/2017 XAVI NEVILLE MD [facility] CT(ASCP) SPECIMEN(S) RECEIVED: Urine-VOIDED CLINICAL HISTORY: HISTORY [...]
--- OUTSIDE RECORDS SUMMARY | 2022-05-27 12:11 | XMS_ITS | Encounter Summary ---
:1945 Author Organization [facility] Address [address] [place] [address] Care Team Providers Name Role Phone Ewa Alejandro M.D. Primary Care Provider Encounter Details Date Type Department Care Team Description 09/17/2017 Hospital Encounter Department of Lea Gonsalez ent Ischemic Laboratory Medicine Ewa brunson Attack in [place] [address] [place] [phone] Social History Tobacco Use Types Packs/Day Years [...] do you attend episcopalian or Never 2021 yazidi services? Do you [...] Transient Ischemic Results for this EGFR, S/P PLATING MACHINE OPERATOR Attack procedure are i n the results section. documented in this encounter Results Creatinine with Estimated GFR (MDRD) (09/17/2017 8:50 AM PLATING MACHINE OPERATOR) P athologist Signature Creatinine 1.01 0.74 - 09/17/2017 ED [facility] 1.35 mg/dL 10:12 AM [facility] [employer] [facility] [place] [facility] eGFR 73 >=60 09/17/2017 ED [facility] Non-Black/Afric mL/min/BSA 10:12 AM [facility]- an [place] Comment: ----ADDITIONAL INFORMATION---- Estimated GFR calculated using the 2009 CKD_EPI creatinine equation. eGFR Black/ 84 >=60 mL/min/BSA 09/17/2017 10:1 2 AM [facility] [employer] [facility]- [place] [facility] Comment: ----ADDITIONAL INFORMATION---- Estimated GFR calculated using the 2009 CKD_EPI creatinine equation. Specimen Anatomical Collection Method Collection Time Receive d Time (Source) Location / / Volume Laterality Blood (Blood, 09/17/2017 8:50 AM 09/17/20 8:56 Venous) PLATING MACHINE OPERATOR AM PLATING MACHINE OPERATOR Ewa Alejandro M.D. LAB BLOOD ADD-ON Performing Organization Address City/State/ZIP Code Phon e Number [facility] [address] [place] [id number] LAB documented in this encounter Visit Diagnoses Diagnosis Transient Ischemic Attack documented in this encounter Care Teams Renewable Energy Engineer Relationship Specialty Start Date End Date Ewa Alejandro M.D. PCP - General 03/13/17 01/09/[address] [phone] documented as of this encounter
--- OUTSIDE RECORDS SUMMARY | 2022-05-27 12:11 | XMS_ITS | Encounter Summary ---
:1945 Author Organization [facility] Address [address] [place] [address] Care Team Providers Name Role Phone Ewa Alejandro M.D. Primary Care Provider [phone] Encounter Details Date Type Department Care Team Description 07/04/2017 Hospital Encounter [facility]X [facility] Ewa Grier M.D. [address] [place], [place] [phone] (Wo rk) Social History [...] do you attend quaker or Never 2021 church services? Do you [...] 15 MMOLL POWERCHART HXeGFR (MDRD) >60 >=60 [id number] POWERCHART eGFR Black/ >60 >=60 [id number] POWERCHART Specimen (Source) Anatomical Collection Method Collection [...] documented as of this encounter Care Teams Utility Worker [employer] Relationship Specialty Start Date End Date Ewa Alejandro M.D. PCP - General 03/13/17 01/09/20 [address] [place] [phone] documented as of this encounter
--- OUTSIDE RECORDS SUMMARY | 2022-05-27 12:11 | XMS_ITS | Encounter Summary ---
:1945 Author Organization [facility] Address [address] [place] [address] Care Team Providers Name Role Phone Piero Alejandro M.D. Primary Care Provider [phone] Encounter Details Date Type Department Care Team Description 07/04/2017 Hospital Encounter [facility]X [facility] Piero Grier M.D. [address] [place], [place] [phone] (Wo rk) Social History [...] you attend roman catholic or Never 2021 protestant services? Do you [...] 08, 2017 16:03:35 CDT From: NANO MILES ([facility] Junior Web Designer) To: [facility] Nurse; Sent: 07/08/2017 16:03:35 CDT Subject: RE: Addendum by NANO MILES on July 08, 2017 16:03:25 CDT Patient is scheduled at 2:30 on July 17. Addendum by KYLIE NINO LPN on July 07, 2017 11:05:07 CDT From: KYLIE NINO LPN ([facility] Nurse) To: [facility] Junior Web Designer; Sent: 07/07/2017 11:05:07 CDT Subject: FW: From: PIERO ROJAS MD To: [facility] Nurse; Sent: 2017 17:00:49 CDT Have S imon follow up and bring a list of blood sugars with him. Source: [facility] POWERCHART Document Id: [id number] documented in this encounter Plan of Treatment [...] as of this encounter Care Teams Private Duty Lpn Relationship Specialty Start Date End Date Piero Alejandro M.D. PCP - General 03/13/17 01/09/20 [address], [place] [phone] documented as of this encounter
--- OUTSIDE RECORDS SUMMARY | 2022-05-27 12:11 | XMS_ITS | Encounter Summary ---
:1945 Author Organization [facility] Address [address] [place] [address] Care Team Providers Name Role Phone Ewa Alejandro M.D. Primary Care Provider [phone] Encounter Details Date Type Department Care Team Description 05/08/2017 Hospital Encounter [facility]X [facility] Ailyn Bernal M.D. [address] [place] [phone] (Wo rk) Social History Tobacco [...] do you attend episcopal or Never 2021 episcopalian services? Do you [...] BERNAL MD On: 05/08/2017 09:37 AM Source: [facility] [employer] Document Id: [id number] documented in this encounter Miscellaneous Notes Miscellaneous [...] FUROC Result Sum-[place] Negative 05/08/2017 09:20 FUROC Result-[place] See Comment 05/08/2017 09:20 FUROC Interp-[place] See Comment 05/08/2017 09:20 FUROC Reason for Ref-[place] See Comment 05/08/2017 09:20 FUROC Spec-[place] Varies 05/08/2017 09:20 FUROC Source-[place] Urine, NOS 05/08/2017 09:20 FUROC Released By-[place] See Comment Source: [facility] [employer] Document Id: [id number] Miscellaneous - Raegan Toney APRN, RMauroN. - [...] Result Name 05/09/2017 11:58 Document - DOC Non-OFFICE ADMINISTRATION INSTRUCTOR Cytology Source: [facility] [employer] Document Id: [id number] Miscellaneous - Yu Thomas, L.P.N. - 05/08/2017 9:15 AM CDT Adult Customer Account Technician Intake/History Adult Customer Account Technician Intake/History Entered On: 05/08/2017 9:19 CDT Performed [...] Pressure Cuff Size : Regular [facility] - 05/08/2017 9:15 CDT General Info Information Given By : Patient Preferred Communication Mode : Verbal Languages : [place] Is Patient Female and 13-50 no hysterectomy : No [facility] - 05/08/2017 9:15 CDT Subjective Pain Symptoms : No [facility] - 05/08/2017 9:15 CDT Dependent Habits Exposure to Tobacco Smoke : Other: quit in 1982 Smoking Status : Former smoker Tobacco 2A : Yes Tobacco Use/Currently Using : No Tobacco Use/Last 30 Days : No Tobacco Use/Last 12 months : No Tobacco Last Use/Year : 1982 Alcohol Use : No [facility] 05/08/2017 9:15 CDT Caffeine Use Grid Caffeine Use : Current Type : Chocolate, Coffee, Soft drinks Frequency : Daily [facility] - 05/08/2017 9:15 CDT Recreational Drug Use Grid Drug Use : None [facility] 05/08/2017 9:15 CDT [facility] Document Id: [id number]!34 documented in this encounter Plan of Treatment Not on filedocumented as of this encounter Procedures Procedure Name Priority Date/Time Associated Comments Diagnosis UROVYSION (R) FOR Routine 05/08/2017 9:20 AM Resu lts for this BLADDER CANCER CDT procedure are in the results section. ZZPATHOLOGY NON-OFFICE ADMINISTRATION INSTRUCTOR Routine 05/08/2017 8:52 AM Re sults for this CYTOLOGY CDT procedure are i n the results section. documented in this encounter Results UroVysion for Detection of Bladder Cancer, Urine (05/08/2017 9:20 AM CDT) [facility] Method Time Signature HXFUROC Result Negative POWERCHART [facility] HXFUROC See Comment POWERCHART Result-[place] Comment: RESULT: No evidence of urotheli al [...] This test has been modified from the wise river ufacturer's instructions. Its performance characteri stics were determined by [facility] in a manner co nsistent with CLIA requirements. This test has not been fernando ared or approved by the U.S. Food and Drug Administration. HX FUROC Reason for Ref See Comment GOLD CANDELARIO Comment: RESULT: Evaluate for urothelial carcinoma. HXFUROC Spec-[place] Varies POWERCHART HXFUROC Source-[place] Urine, NOS POWERCHAR T HXFUROC Released By-[place] See Comment CHRISTIN JEFFRIES Comment: RESULT: Dhiraj Hammer M.D. Test Performed by: [facility] Laboratories - [address] [address] Specimen (Source) Anatomical Collection Method Collection Time Re ceived Time Location / / Volume Laterality Urine 05/08/2017 9:20 AM CDT Ailyn Bernal M.D. LAB GENETIC TESTING Performing Organization Address City/State/ZIP Code Phon e Number POWERCHART POWERCHART NA Z[facility]pathology Non-Ceramics Machine Operator Cytology (05/08/2017 8:52 AM CDT) Specimen (Source) Anatomical Collection Method Collection Time Re ceived Time Location / / Volume Laterality 05/08/2017 8:52 AM CDT Narrative [facility] LAB - 05/09/2017 11:58 AM CDT [facility] in [facility] [address] [place], [place] ??[phone] Patient Name: BETH COSTA Patient ID #: [id number] Collected: 05/08/2017 Address: [facility]/Zip: [address] [place], [place] ??[id number] Received: Reported: 05/09/2017 05/09/2017 Soc. Sec. #: ?/Age/Sex 1945 (Age: 71) ??M Physician(s): Juana BERNAL MD Copy To: ? [facility] ?? [id number] [address] [place] [address]. [facility], ??[place] ??[address] CYTOPATHOLOGY NON-OFFICE ADMINISTRATION INSTRUCTOR REPORT FINAL CYTOLOGIC DIAGNOSIS Urine: NEGATIVE FOR [...] documented as of this encounter Care Teams Cd Mixer Helper Relationship Specialty Start Date End Date Ewa Alejandro M.D. PCP - General 03/13/17 01/09/[address] [phone] documented as of this encounter
--- OUTSIDE RECORDS SUMMARY | 2022-05-27 12:11 | XMS_ITS | Encounter Summary ---
:1945 Author Organization [facility] Address [address] [place] [address] Care Team Providers Name Role Phone Ewa Alejandro M.D. Primary Care Provider [phone] Reason for Referral MRI/CAT/PET Scan (Routine) - Closed Specialty Diagnoses / Procedures Referred By Contact Refer red To Contact Radiology Diagnoses Dizziness ARMAAN Alejandro SE Region Procedures MR Brain without and with IV Contrast [place] [address] [place] [phone] Referral ID Status Reason Start Date Expiration Date Visits Requ ested Visits Authorized [id number] Closed 09/12/2017 03/11/2018 1 1 HT TEACHER Reason for Visit MRI/CAT/PET Scan (Routine) - Closed Specialty Diagnoses / Procedures Referred By Contact Refer anna To Contact Radiology Diagnoses Dizziness And Giddiness ARMAAN Alejandro SE Region Procedures MR Brain Angiogram without IV Contrast MR Brain Angiogram without and with IV Contrast NM MRA HEAD WO/W CNTRST HC MRA HEAD WO/W CNTRST NM MRA HEAD WO/W CNTRST NM MRA HEAD WO CNTRST HC MRA HEAD WO CNTRST NM MRA HEAD WO CNTRST [place] Mcneil [address] [place] [phone] Referral ID Status Reason Start Date Expiration Date Visits Requ ested Visits Authorized [id number] Closed 09/10/2017 03/09/2018 1 1 Encounter Details Date Type Department Care Team Description 09/17/2017 Hospital Encounter Department of [facility] Dizzin ess And Giddiness; Radiology in [place], Ewa, Dizziness [place] [address] [facility] [phone] [place], [place] [phone] Social History Tobacco Use Types Packs/Day [...] do you attend yarsanism or Never 2021 adventist services? Do you [...] L.P.N. - 09/17/2017 11:59 PM CST Notified Jonnathan Yannick Trimble L.P.N. - 09/17/2017 4:05 PM [...] let him know your thoughts. Thank you. HT TEACHER documented in this encounter Plan of Treatment Not on filedocumented as of this encounter Procedures Procedure Name Priority Date/Time Associated Comments Diagnosis MR BRAIN WITHOUT RAD - Routine 09/17/2017 10:20 Dizziness Result s for this AND WITH IV (most inpatients AM FLIGHT TEACHER procedure a re in CONTRAST and all the results outpatients) section. MR BRAIN RAD - Routine 09/17/2017 10:20 Dizziness And Results f or this ANGIOGRAM WITHOUT (most inpatients AM FLIGHT TEACHER Giddiness proced ure are in IV CONTRAST and all the results outpatients) section. documented in this encounter Results MR Brain Angiogram without IV Contrast (09/17/2017 10:20 AM FLIGHT TEACHER) Anatomical Region Laterality Modality Head, Brain N/A Magnetic Resonance Specimen (Source) Anatomical Collection Method Collection Time Re ceived Time Location / / Volume Laterality 09/17/2017 11:01 AM FLIGHT TEACHER Impressions 09/17/2017 11:38 AM FLIGHT TEACHER IMPRESSION: 1. 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 2. Normal variant head MRA. 3. Paranasal sinus disease appears acute . Narrative 09/17/2017 11:38 AM FLIGHT TEACHER EXAM: MR BRAIN WITHOUT AND WITH IV [...] disease appears acute . Ewa Alejandro M.D. [facility] MRI PROCEDURES MR Brain without and with IV Contrast (09/17/2017 10:20 AM FLIGHT TEACHER) Anatomical Region Laterality Modality Head, Brain N/A Magnetic Resonance Specimen (Source) Anatomical Collection Method Collection Time Re ceived Time Location / / Volume Laterality 09/17/2017 11:01 AM FLIGHT TEACHER Impressions 09/17/2017 11:38 AM FLIGHT TEACHER IMPRESSION: 1. 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 2. Normal variant head MRA. 3. Paranasal sinus disease appears acute . Narrative 09/17/2017 11:38 AM FLIGHT TEACHER EXAM: MR BRAIN WITHOUT AND WITH IV [...] injection 1-14 mL Given 09/17/2017 11:00 AM FLIGHT TEACHER 11 mL (for_GADAVIST) 1-14 mL, intravenous, Once in imaging, contrast, Starting on Fri09/17/17 at 1020, For 1 dose, Imaging Protocol Orders, Dose per Radiant Medication Guidelines documented in this encounter Care Teams Chef Kitchen Manager Relationship Specialty Start Date End Date Ewa Alejandro M.D. PCP - General 03/13/17 01/09/20 [address], [place] [phone] documented as of this encounter
--- OUTSIDE RECORDS SUMMARY | 2022-05-27 12:11 | XMS_ITS | Encounter Summary ---
:1945 Author Organization [facility] Address [address] [place] [address] Care Team Providers Name Role Phone Ewa Alejandro M.D. Primary Care Provider Encounter Details Date Type Department Care Team Description 09/17/2017 Orders Only Department [facility] [address] [place] [phone] (Wo rk) Social History Tobacco Use Types [...] do you attend tenriism or Never 2021 judaism services? Do you [...] on filedocumented in this encounter Care Teams Automotive Diagnostic Technician Relationship Specialty Start Date End Date Ewa Alejandro M.D. PCP - General 03/13/17 01/09/20 [address] [place] [phone] documented as of this encounter
--- OUTSIDE RECORDS SUMMARY | 2022-05-27 12:11 | XMS_ITS | Encounter Summary ---
:1945 Author Organization [facility] Address [address] [place] [address] Care Team Providers Name Role Phone Unavailable Primary Care Provider Unavailable Encounter Details Date Type Department Care Team Description 11/12/2016 Hospital Encounter [facility]X [facility] Ronda Valladares APRN, C.N.P., M.S.N. [address] [place] [address] (Wo rk) Social History Tobacco Use Types [...] do you attend methodist or Never 2021 mormonism services? Do you [...] Comments Blood Pressure 152/70 11/12/2016 1:46 PM MANAGER OF LEARNING Pulse 85 11/12/2016 1:46 PM MANAGER OF LEARNING Temperature - - Respiratory Rate - - Oxygen Saturation - - Inhaled Oxygen Concentration - - Weight 112 kg (246 lb 11.1 oz) 11/12/2016 1:46 PM MANAGER OF LEARNING Height - - Body Mass Index 31 10/14/2016 1:59 PM MANAGER OF LEARNING documented in this encounter Medications at Time [...] Brock P.A.-C. - 11/12/2016 1:28 PM CST [id number] CHIEF COMPLAINT/REASON FOR VISIT Suspect boil on [...] BROCK PA-C On: 11/13/2016 11:35 AM Source: [facility] MHSDOLBEYNONRADSYS Document Id: [id number] GER OF LEARNING documented in this encounter Miscellaneous Notes Miscellaneous - Dong Brock P.A.-C. - 11/12/2016 2:05 PM CST Ambulatory Patient Summary [place] [id number] [place] [id number] Visit Information Name: BETH COSTA [facility] Number: [id number] Current Date: 11/12/2016 14:05:57 Physicians [...] hours x 7 day(s) New Routed to [address] [address] clopidogrel (Plavix 75 mg oral tablet) 1 [...] if you dont have one. Go to [email or web address] and click on Create Your Account. Then, follow the directions to complete the online form. Youll be asked for your [facility] number which you can find at the top of this document. Your Goals/Additional instructions: Source: [facility] POWERCHART Document Id: [id number] GER OF LEARNING Miscellaneous - Dong Brock P.A.-C. - 11/12/2016 2:05 PM CST Ambulatory Discharge Medication List [facility] [address] [place] [address] [id number] Visit Information Name: BETH COSTA [facility] Number: [id number] Current Date: 11/12/2016 14:05:56 Attending [...] hours x 7 day(s) New Routed to [address] [address] clopidogrel (Plavix 75 mg oral [...] PA-C Signed On:12-NOV-2016 14:05:54 Additional Information: [facility] Document Id: [id number] GER OF LEARNING Miscellaneous - Debbie Estevez L.P.N. - 11/12/2016 1:46 PM CST Adult Data Reviewer Intake/History Adult Data Reviewer Intake/History Entered On: 11/12/2016 13:49 MANAGER OF LEARNING Performed On: 11/12/2016 13:46 MANAGER OF LEARNING by DEBBIE ESTEVEZ INDUCTION HEAT TREATER Intake Chief Complaint : suspects boil on [...] Clinic : 111.9 kg IRENE DEBBIE S [facility] - 11/12/2016 13:46 MANAGER OF LEARNING General Info Information Given By : Patient Preferred Communication Mode : Verbal Languages : Thai Is Patient Female and 13-50 no hysterectomy : No DEBBIE ESTEVEZ [facility] - 11/12/2016 13:46 MANAGER OF LEARNING Subjective Pain Symptoms : No DEBBIE ESTEVEZ LPN - 11/12/2016 13:46 MANAGER OF LEARNING Dependent Habits Exposure to Tobacco Smoke : Other: quit in 1982 Smoking Status : Former smoker Tobacco 2A : Yes Tobacco Use/Currently Using : No Tobacco Use/Last 30 Days : No Tobacco Use/Last 12 months : No Tobacco Last Use/Year : 1982 DEBBIE ESTEVEZ [facility] - 11/12/2016 13:46 MANAGER OF LEARNING Caffeine Use Grid Caffeine Use : Current Type : Chocolate, Coffee, Soft drinks Frequency : Daily DEBBIE ESTEVEZ LPN - 11/12/2016 13:46 MANAGER OF LEARNING Recreational Drug Use Grid Drug Use : None DEBBIE ESTEVEZ INDUCTION HEAT TREATER - 11/12/2016 13:46 MANAGER OF LEARNING [facility] Document Id: [id number] MANAGER OF LEARNING!36 GER OF LEARNING documented in this encounter Plan of Treatment Not on filedocumented as of this encounter Visit Diagnoses Not on filedocumented in this encounter Additional Health Concerns Assessment Noted Time PHQ-9 Depression Total Score: 6 01/31/2015 12:28 PM CD T documented as of this encounter
--- OUTSIDE RECORDS SUMMARY | 2022-05-27 12:11 | XMS_ITS | Encounter Summary ---
:1945 Author Organization [facility] Address [address] [place] [address] Care Team Providers Name Role Phone Ewa Alejandro M.D. Primary Care Provider Encounter Details Date Type Department Care Team Description 05/08/2017 Hospital Encounter HX NO MAPPING Virginia Bernal M.D. [address] [place], [place] [phone] (Wo rk) Social [...] do you attend druze or Never 2021 restorationism services? Do you [...] Coding Summary-Paper Based CODING DATE: 05/20/2017 FINAL [facility] STATUS: * Discharged to Home or Self [...] TREVIZO Date Saved: 05/20/2017 02:50 pm Source: [facility] POWERCHART Document Id: [id number] documented in this encounter Plan of Treatment Not on filedocumented as of this encounter Visit Diagnoses Not on filedocumented in this encounter Additional Health Concerns Assessment Noted Time PHQ-9 Depression Total Score: 6 01/31/2015 12:28 PM CD T documented as of this encounter Care Teams Production Engineer Relationship Specialty Start Date End Date Ewa Alejandro M.D. PCP - General 03/13/17 01/09/[address] [phone] documented as of this encounter
--- OUTSIDE RECORDS SUMMARY | 2022-05-27 12:11 | XMS_ITS | Encounter Summary ---
:1945 Author Organization [facility] Address [address] [place] [address] Care Team Providers Name Role Phone Unavailable Primary Care Provider Unavailable Encounter Details Date Type Department Care Team Description 02/27/2017 Hospital Encounter HX NO MAPPING Virginia Bernal M.D. [address] [place], [place] [phone] (Wo rk) Social [...] do you attend jain or Never 2021 anglican services? Do you [...]
--- OUTSIDE RECORDS SUMMARY | 2022-05-27 12:11 | XMS_ITS | Encounter Summary ---
:1945 Author Organization [facility] Address [address] [place] [address] Care Team Providers Name Role Phone Unavailable Primary Care Provider Unavailable Encounter Details Date Type Department Care Team Description 02/27/2017 Hospital Encounter HX [facility] Ewa Grier M.D. [address] [place], [place] [phone] (Wo rk) Social History [...] do you attend mosque or Never 2021 yazidism services? Do you [...] (ABNORMAL) Lipid Panel (02/27/2017 7:47 AM CDT) [facility] gist Method Time Signature Calculated LDL [...] for FH and FDB is available christopher [facility]: FH/ADH Genetic Reflex Saleh el (test ADHP). Acquired (non-genetic) causes of markedly increased LDL cholesterol include cholestatic liver disease due to the presence of LpX. If a genetic form of hypercholesterolemia is suspected, family studies including biochemical testing fo r lipids (total cholesterol,triglycerides, LDL cholesterol and HDL cholesterol) are recommended. ??Please contact the laboratory at or the on-line test catalog at [employer] for information about how to order these [...]
--- OUTSIDE RECORDS SUMMARY | 2022-05-27 12:11 | XMS_ITS | Encounter Summary ---
:1945 Author Organization [facility] Address [address] [place] [address] Care Team Providers Name Role Phone Unavailable Primary Care Provider Unavailable Encounter Details Date Type Department Care Team Description 03/03/2017 Hospital Encounter HX [facility] FAMILYPRA Ewa Forbes M.D. [address] [place], [place] [phone] (Wo rk) Social History [...] do you attend jainism or Never 2021 zoroastrian services? Do you [...] Weiss M.D. - 03/03/2017 8:02 AM CDT [id number] CHIEF COMPLAINT/ REASON FOR VISIT Review recent [...] On 11/14/2015 LDL was 113, HDL 37, [id number] and total cholesterol 214. Jonnathan has been prescribed Atorvastatin 40 mg and Gemfibrozil 600 mg twice daily. However, [facility] and has not always been given Atorvastatin as prescribed and has been given other statins in place of Atorvastatin. He is currently taking Lovastatin 40 mg in addition to Gemfibrozil 600 mg twice daily. Per the EMR Jonnathan had an A1C checked at the [facility] on 11/08/2016 which showed a result of 9.1%. We checked an A1C here at the clinic on 02/27/2017 with a result of 8.4%. He reports that he had an A1C checked a couple weeks ago at the [facility] and his A1C was 9.4%. After that result was reviewed by his doctor at the [facility] he was placed on a rigid diet in order to get better control of his diabetes. Jonnathan has plans tomeet with a pharmacist and greige mender monthly at the [facility] in order to keep him on track. [...] dysfunction. 6. Pulmonary symptomatology, diagnosis at the [facility] unclear, but probably some degree of COPD. 7. Status post left cataract surgery at the [facility]. 8. Tonsillectomy. 9. Obstructive sleep apnea, prescribed CPAP therapy but is currently not using. 10. 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 Bernal. 11. Asthma. 12. Greenlight photoselective vaporization of the prostate and cystoscopy with bladder biopsy and fulguration of a 2cm area; 08/28/[address] Prasanna Bernal at the [facility]. PREVENTIVE SERVICES Tobacco use: none, former [...] He is working with providers at the [facility] to get this under better control. He should continue with his current regimen at this time. Patient was encouraged to continue working with lifestyle modifications. 2. Hypercholesterolemia. I am concerned that his triglycerides are elevated despite being on statin therapy and Gemfibrozil. As the [facility] is providing him with Lovastatin rather than [...] behalf by Lulu Roldan, a trained medical csr. The creation of this record is based on the scribe's personal observations and the provider's statements to them. This document has been christie cked and approved by the attending provider. Ewa Hinton M.D./livia Electronically Signed By: EWA WEISS MD On: 03/17/2017 12:36 PM Source: [facility] MHSDOLBEYNONRADSYS Document Id: [id number] documented in this encounter Miscellaneous Notes Miscellaneous [...] HAMILTON LPN - 03/03/2017 8:16 CDT Source: [facility] Document Id: [id number] CDT!8 Miscellaneous - Marti Hamilton L.P.N. - 03/03/2017 8:14 AM CDT Adult Supervisor Sulfuric Acid Plant Intake/History Adult Supervisor Sulfuric Acid Plant Intake/History Entered On: 03/03/2017 8:16 CDT Performed [...] Preferred Communication Mode : Verbal Languages : Tanzanian Is Patient Female and 13-50 no hysterectomy [...] Tobacco Last Use/Year : 1982 MARTI HAMILTON [facility] - 03/03/2017 8:14 CDT Caffeine Use Grid Caffeine Use : Current Type : Chocolate, Coffee, Soft drinks Frequency : Daily MARTI HAMILTON [facility] - 03/03/2017 8:14 CDT Recreational Drug Use Grid Drug Use : None MARTI HAMILTON [facility] - 03/03/2017 8:14 CDT Source: [employer] Document Id: [id number] CDT!41 documented in this encounter Plan of Treatment Not on filedocumented as of this encounter Visit Diagnoses Not on filedocumented in this encounter Additional Health Concerns Assessment Noted Time PHQ-9 Depression Total Score: 6 01/31/2015 12:28 PM CD T documented as of this encounter
--- OUTSIDE RECORDS SUMMARY | 2022-05-27 12:11 | XMS_ITS | Encounter Summary ---
:1945 Author Organization [facility] Address [address] [place] [address] Care Team Providers Name Role Phone Unavailable Primary Care Provider Unavailable Encounter Details Date Type Department Care Team Description 02/27/2017 Hospital Encounter HX [facility] Ewa Grier M.D. [address] [place], [place] [phone] (Wo rk) Social History [...] do you attend baptism or Never 2021 religion services? Do you [...] Comment: Biotin has been [facility] as a potential interfering substance. Higher [...] AST (Aspartate Aminotransferase) (02/27/2017 7:47 AM CDT) [facility] gist Method Time Signature Aspartate 23 [...]
--- OUTSIDE RECORDS SUMMARY | 2022-05-27 12:11 | XMS_ITS | Encounter Summary ---
:1945 Author Organization [facility] Address [address] [place] [address] Care Team Providers Name Role Phone Unavailable Primary Care Provider Unavailable Encounter Details Date Type Department Care Team Description 02/06/2017 Hospital Encounter HX [facility] UROLOG[facility] Ailyn Bernal M.D. [address] [place] [address] (Wo rk) Social History Tobacco [...] BERNAL MD On: 02/06/2017 10:39 AM Source: [facility] [employer] Document Id: [id number] documented in this encounter Miscellaneous Notes Miscellaneous [...] FUROC Result-Randolph See Comment 02/06/2017 10:17 FUROC Interp-Widener See Comment 02/06/2017 10:17 FUROC Reason for Ref-Widener See Comment 02/06/2017 10:17 FUROC Spec-Randolph Varies 02/06/2017 10:17 FUROC Source-[facility] Urine, NOS 02/06/2017 10:17 FUROC Released By-Widener BEATRIZ GALLEGO Source: [facility] Document Id: [id number] Electronically signed by Conversion, [facility] Instructional Resource Teacher [id number] at 03/11/2017 4:53 AM CDT Miscellaneous - Raegan Toney APRN, R.N. - 02/07/2017 1:04 PM CDT Results Notification Document Contains Addenda Addendum by RODERICK THOMAS LPN on February 12, 2017 09:55:40 CDT Patient's schedule with hospital receptionist to have patient leave a urine sample at the [facility]. Addendum by RODERICK THOMAS LPN on February [...] Result Name 02/07/2017 12:24 Document - DOC Non-PACKAGER HAND Cytology Source: [employer] Document Id: [id number] Electronically signed by Conversion, [facility] Instructional Resource Teacher [id number] at 03/11/2017 4:53 AM CDT Miscellaneous - Ailyn Bernal M.D. - 02/06/2017 10:38 AM CDT Ambulatory Patient Summary [facility] [address] [place] [id number] Visit Information Name: BETH COSTA [facility] Number: [id number] Current Date: 02/06/2017 10:38:06 [...] if you dont have one. Go to [email or web address] and click on Create Your Account. Then, follow the directions to complete the online form. Youll be asked for your [facility] number which you can find at the top of this document. Your Goals/Additional instructions: Source: [facility] POWERCHART Document Id: [id number] Miscellaneous - Ailyn Bernal M.D. - 02/06/2017 10:38 AM CDT Ambulatory Discharge Medication List [facility] [address] [place] [id number] Visit Information Name: BETH COSTA [facility] Number: [id number] Current Date: 02/06/2017 10:38:05 [...] MD Signed On:06-FEB-2017 10:38:02 Additional Information: Source: [facility] POWERCHART Document Id: [id number] Miscellaneous - Janes Umanzor L.P.N. - 02/06/2017 10:01 AM CDT Adult Apple Checker Intake/History Adult Apple Checker Intake/History Entered On: 02/06/2017 10:04 CDT Performed [...] Preferred Communication Mode : Verbal Languages : Central African Is Patient Female and 13-50 no hysterectomy [...] UMANZOR LPN - 02/06/2017 10:01 CDT Source: [facility] POWERCHART Document Id: [id number] CDT!33 documented in this encounter Plan of Treatment Not on filedocumented as of this encounter Procedures Procedure Name Priority Date/Time Associated Comments Diagnosis UROVYSION (R) FOR Routine 02/06/2017 10:17 Result s for this BLADDER CANCER AM CDT procedure are in the results section. ZZPATHOLOGY NON-PACKAGER HAND Routine 02/06/2017 9:55 AM Re sults for this CYTOLOGY CDT procedure are i n the results section. documented in this encounter Results UroVysion for Detection of Bladder Cancer, Urine (02/06/2017 10:17 AM CDT) [facility] Method Time Signature HXFUROC Result Negative POWERCHART [facility] HXFUROC See Comment POWERCHART Result-Widener Comment: RESULT: No evidence of urotheli al [...] Its performance characteri stics were determined by [facility] in a manner co nsistent with CLIA requirements. This test has not been fernando ared or approved by the U.S. Food and Drug Administration. Reason For Referral See Comment POWERCHA RT Comment: RESULT: Evaluate for urothelial carcinoma. HXFUROC Spec-[place] Varies POWERCHART HXFUROC Source-[facility] Urine, NOS POWERCHAR T HXFUROC Released By-Widener BEATRIZ WALLER ERCHART Comment: Test Performed by: [facility] - [address] [address] Specimen (Source) Anatomical Collection Method Collection Time Re ceived Time Location / / Volume Laterality Urine 02/06/2017 10:17 AM CDT Ailyn Bernal M.D. LAB GENETIC TESTING Performing Organization Address City/State/ZIP Code Phon e Number POWERCHART ZZPATHOLOGY NON-PACKAGER HAND CYTOLOGY (02/06/2017 9:55 AM CDT) Specimen (Source) Anatomical Collection Method Collection Time Re ceived Time Location / / Volume Laterality 02/06/2017 9:55 AM CDT Narrative [facility] LAB - 02/07/2017 12:24 PM CDT [facility] [address] [place] [address] ??[phone] Patient Name: BETH COSTA Patient ID #: [id number] Collected: 02/06/2017 Address: [facility]/Zip: [id number] [place] [address] ??[id number] Received: Reported: 02/07/2017 02/07/2017 Soc. Sec. #: ?/Age/Sex 1945 (Age: 71) ??M Physician(s): Juana BERNAL MD Copy To: ? [facility] ?? [id number] [address] [facility] ??[address] CYTOPATHOLOGY NON-PACKAGER HAND REPORT FINAL CYTOLOGIC DIAGNOSIS Urine-CATHETERIZED OR POST [...]
--- OUTSIDE RECORDS SUMMARY | 2022-05-27 12:11 | XMS_ITS | Encounter Summary ---
:1945 Author Organization [facility] Address [address] [place] [address] Care Team Providers Name Role Phone Ewa Alejandro M.D. Primary Care Provider [phone] Encounter Details Date Type Department Care Team Description 09/05/2017 Abstract Department of Community Internal Provider , [facility] Medicine in [address] [place] [address] Social History Tobacco Use Types Packs/Day [...] do you attend religion or Never 2021 episcopal services? Do you [...] documented as of this encounter Care Teams Office Machine Embossograph Operator Relationship Specialty Start Date End Date Ewa Alejandro M.D. PCP - General 03/13/17 01/09/20 [address], [place] [address] documented as of this encounter
--- OUTSIDE RECORDS SUMMARY | 2022-05-27 12:11 | XMS_ITS | Encounter Summary ---
:1945 Author Organization [facility] Address [address] [place] [address] Care Team Providers Name Role Phone Unavailable Primary Care Provider Unavailable Encounter Details Date Type Department Care Team Description 02/06/2017 Hospital Encounter HX NO MAPPING Virginia Bernal M.D. [address] [place], [place] [phone] (Wo rk) Social History [...] do you attend judaism or Never 2021 hinduism services? Do you [...]
--- OUTSIDE RECORDS SUMMARY | 2022-05-27 12:11 | XMS_ITS | Encounter Summary ---
:1945 Author Organization [facility] Address [address] [place] [address] Care Team Providers Name Role Phone Ewa Alejandro M.D. Primary Care Provider [phone] Reason for Referral MRI/CAT/PET Scan (Routine) - Closed Specialty Diagnoses / Procedures Referred By Contact Refer red To Contact Radiology Diagnoses Dizziness ARMAAN Alejandro [facility] Region Procedures MR Brain without and with IV Contrast Pat[place] Mcneil [address] [address] Referral ID Status Reason Start Date Expiration Date Visits Requ ested Visits Authorized [id number] Closed 09/12/2017 03/11/2018 1 1 EILLANCE DIRECTOR Encounter Details Date Type Department Care Team Description 09/12/2017 Orders Only Department of [facility] Philip obrien (Primary Dx) Medicine, [facility], in [place] [address] [place] [address] [place] [phone] Social History Tobacco Use Types Packs/Day Years [...] do you attend hoahaoism or Never 2021 christianity services? Do you [...] and with IV Contrast (09/17/2017 10:20 AM SURVEILLANCE DIRECTOR) Anatomical Region Laterality Modality Head, Brain N/A Magnetic Resonance Specimen (Source) Anatomical Collection Method Collection Time Re ceived Time Location / / Volume Laterality 09/17/2017 11:01 AM SURVEILLANCE DIRECTOR Impressions 09/17/2017 11:38 AM SURVEILLANCE DIRECTOR IMPRESSION: 1. 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 2. Normal variant head MRA. 3. Paranasal sinus disease appears acute . Narrative 09/17/2017 11:38 AM SURVEILLANCE DIRECTOR EXAM: MR BRAIN WITHOUT AND WITH IV [...] Dizziness documented in this encounter Care Teams Chargemaster Analyst Relationship Specialty Start Date End Date Ewa Alejandro M.D. PCP - General 03/13/17 01/09/20 [address] [place] [address] documented as of this encounter
--- OUTSIDE RECORDS SUMMARY | 2022-05-27 12:11 | XMS_ITS | Encounter Summary ---
:1945 Author Organization [facility] Address [address] [place] [address] Care Team Providers Name Role Phone Ewa Alejandro M.D. Primary Care Provider [phone] Reason for Visit Reason Comments Follow-up states made appoinmtnet when not feelling well, now feelling better not feelling will was related to his B/P med change Appointment Request (Routine) - Closed Specialty Diagnoses / Procedures Referred By Contact Refer red To Contact Family Medicine Referral ID Status Reason Start Date Expiration Date Visits Requ ested Visits Authorized [id number] Closed 09/04/2017 03/03/2018 1 1 Encounter Details Date Type Department Care Team Description 09/10/2017 Office Visit Department of Family [facility], in [place] [address] [place] [id number] Social History Tobacco Use Types Packs/Day Years [...] do you attend uatsdin or Never 2021 hinduism services? Do you [...] Comments Blood Pressure 138/72 09/10/2017 11:12 AM HAND MOLDER MEAT Pulse 86 09/10/2017 11:12 AM HAND MOLDER MEAT Temperature 36.4 ??C (97.5 ??F) 09/10/2017 11:12 AM HAND MOLDER MEAT Respiratory Rate 18 09/10/2017 11:12 AM HAND MOLDER MEAT Oxygen Saturation 98% 09/10/2017 11:12 AM HAND MOLDER MEAT Inhaled Oxygen Concentration - - Weight 111 kg (244 lb 0.8 oz) 09/10/2017 11:12 AM HAND MOLDER MEAT Height - - Body Mass Index 31.32 [...] up to the service counter at a [employer] and could not get words to come [...] 08/28/[address] Prasanna Bernal at the [facility]. ??? TONSILLECTOMY N/A Tonsillectomy PREVENTIVE SERVICES Social [...] an MRA ofthe cerebral arteries at the [facility]. Further recommendations pending results. Follow up The patient will contact the clinic with any new or worsening symptoms. This document serves as a record of services personally performed by Ewa Roy MD. It was created on their behalf by Lulu Roldan, a trained medical housekeeper. The creation of this record is based on the scribe's personal observations and the provider's statements to them. This document has been christie cked and approved by the attending provider. MOLDER MEAT documented in this encounter Plan of Treatment Not on filedocumented as of this encounter Visit Diagnoses Diagnosis Dizziness And Giddiness documented in this encounter Care Teams Advanced Practice Provider Relationship Specialty Start Date End Date Ewa Alejandro M.D. PCP - General 03/13/17 01/09/[address] [place] [phone] documented as of this encounter
--- OUTSIDE RECORDS SUMMARY | 2022-05-27 12:11 | XMS_ITS | Encounter Summary ---
:1945 Author Organization [facility] Address [address] [place] [address] Care Team Providers Name Role Phone Piero Alejandro M.D. Primary Care Provider [phone] Encounter Details Date Type Department Care Team Description 07/17/2017 Hospital Encounter HX [facility] FAMILYPRA Piero Forbes M.D. [address] [place], [place] [phone] (Wo rk) Social History [...] do you attend yazidi or Never 2021 spiritism services? Do you [...] dysfunction. 6. Pulmonary symptomatology, diagnosis at the [facility] unclear, but probably some degree of COPD. 7. Status post left cataract surgery at the [facility]. 8. Tonsillectomy. 9. Obstructive sleep apnea, prescribed CPAP therapy but is currently not using. 10. 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 Bernal. 11. Asthma. 12. Greenlight photoselective vaporization of the prostate and cystoscopy with bladder biopsy and fulguration of a 2cm area; 08/28/[address] Prasanna Bernal at the [facility]. PREVENTIVE SERVICES Tobacco use: none, former smoker [...] and work with his team at the [facility]. He will update me with any changes to his regimen. 3. Follow up: The patient will contact the clinic with any new or worsening symptoms. This document serves as a record of services personally performed by Piero Roy MD. It was created on their behalf by Karen Givens, a trained biomedical photographer. The creation of this record is based on the scribe's personal observations and the provider's statements to them. This document has been ch ecked and approved by the attending provider. Piero Hinton M.D./ Electronically Signed By: PIERO ROJAS MD On: 07/22/2017 10:24 PM Source: [facility] MHSDOLBEYNONRADSYS Document Id: [id number] documented in this encounter Miscellaneous Notes Miscellaneous [...] ROJAS MD - 07/22/2017 12:44 CDT Source: [facility] POWERCHART Document Id: [id number] CDT!13 Miscellaneous - Marti Hamilton, L.P.N. - [...] HAMILTON LPN - 07/17/2017 15:29 CDT Source: [employer] Document Id: [id number] CDT!8 Miscellaneous - Marti Hamilton L.P.N. - [...] None Behavioral Health Screen/Safety Assmt : No Scientology Preference : Unknown MARTI HAMILTON LPN - 07/17/2017 15:27 CDT Advance Directive Advanced Directives : No Advance Directive Additional Information : No MATRI HAMILTON LPN - 07/17/2017 15:27 CDT Educ Needs Learning Style Preference Adult Grid Patient : Demonstration, Printed materials, Verbal explanation Family : None MARTI HAMILTON LPN - 07/17/2017 15:27 CDT [facility] Document Id: [id number] CDT!37 Miscellaneous - Marti Hamilton L.P.N. - 07/17/2017 3:26 PM CDT Adult Clinic Director Intake/History Adult Clinic Director Intake/History Entered On: 07/17/2017 15:27 CDT Performed [...] Preferred Communication Mode : Verbal Languages : Panamanian Is Patient Female and 13-50 no hysterectomy [...] Tobacco Last Use/Year : 1982 MARTI HAMILTON [employer] - 07/17/2017 15:26 CDT Caffeine Use Grid Caffeine Use : Current Type : Chocolate, Coffee, Soft drinks Frequency : Daily MARTI HAMILTON LPN - 07/17/2017 15:26 CDT Recreational Drug Use Grid Drug Use : None MARTI HAMILTON STATION[employer]MAN - 07/17/2017 15:26 CDT Source: [employer] Document Id: [id number] CDT!41 documented in this encounter Plan of Treatment Not on filedocumented as of this encounter Visit Diagnoses Not on filedocumented in this encounter Additional Health Concerns Assessment Noted Time PHQ-9 Depression Total Score: 6 01/31/2015 12:28 PM CD T documented as of this encounter Care Teams Transplanter Relationship Specialty Start Date End Date Piero Alejandro M.D. PCP - General 03/13/17 01/09/[address] [place] [phone] documented as of this encounter
--- OUTSIDE RECORDS SUMMARY | 2022-05-27 12:12 | XMS_ITS | Encounter Summary ---
:1945 Author Organization [facility] Address [address] [place] [address] Care Team Providers Name Role Phone Unavailable Primary Care Provider Unavailable Encounter Details Date Type Department Care Team Description 05/22/2016 Hospital Encounter HX NO MAPPING Virginia Bernal M.D. [address] [place], [place] [phone] (Wo rk) Social History [...] do you attend synagogue or Never 2021 yazdanism services? Do you [...]
--- OUTSIDE RECORDS SUMMARY | 2022-05-27 12:12 | XMS_ITS | Encounter Summary ---
:1945 Author Organization [facility] Address [address] [place] [address] Care Team Providers Name Role Phone Unavailable Primary Care Provider Unavailable Encounter Details Date Type Department Care Team Description 05/09/2016 Hospital Encounter HX [facility] Ailyn Bernal M.D. [address] [place] [phone] (Wo rk) Social History Tobacco [...] do you attend adventism or Never 2021 islam services? Do you [...] Bernal M.D. - 05/09/2016 8:19 AM CDT [id number] CHIEF COMPLAINT/REASON FOR VISIT Gross hematuria. HISTORY [...] health clinics. He has beenexposed to Agent [place]. He quit tobacco 35 years ago. Has [...] Ailyn Bernal M.D./phong cc: Piero Hinton M.D. [facility] [place] [address] Electronically Signed By: AILYN BERNAL MD On: 05/13/2016 08:04 AM Source: [facility] MHSDOLBEYNONRADSYS Document Id: [id number] documented in this encounter Miscellaneous Notes Telephone [...] from 1-3 p.m. From: NANO MILES ([facility] Lab Tester) To: Neurology Nurse; Sent: 05/13/2016 08:04:58 CDT [...] scheduled for. He can be reached at [phone] or a [employer] phone [phone]. Patient is aware that Dr. Lala is [...] back cell phone number ( ) Source: [facility] POWERCHART Document Id: [id number] Miscellaneous - Raegan Rehman APRN, R.N. - [...] Result Name MBO Review Culture Urine Source: [facility] POWERCHART Document Id: [id number] Electronically signed by Karen, [facility] Medical Terminologist [id number] at 02/23/2017 3:20 AM CDT Miscellaneous - Ailyn Bernal M.D. - 05/09/2016 1:00 PM CDT Ambulatory Patient Summary [address] [phone] Visit Information Name: BETH COSTA [facility] Number: [id number] Current Date: 05/09/2016 13:00:12 Physicians [...] online form. Youll be asked for your [facility] number which you can find at the top of this document. Your Goals/Additional instructions: Source: [facility] POWERCHART Document Id: [id number] Miscellaneous - Ailyn Bernal M.D. - 05/09/2016 1:00 PM CDT Ambulatory Discharge Medication List [address] [id number] Visit Information Name: BETH COSTA [facility] Number: [id number] Visit Date: 05/09/2016 13:00:11 Attending [...] MD Signed On:09-MAY-2016 12:54:11 Additional Information: Source: [facility] POWERCHART Document Id: [id number] Miscellaneous - Becky Hager L.P.N. - 05/09/2016 [...] HAGER LPN - 05/09/2016 9:20 CDT Source: [facility] iogynCHART Document Id: [id number] CDT!11 Carencellmaria e - Becky Hager L.P.N. - 05/09/2016 9:01 AM CDT Adult Food Service Order Clerk Intake/History Adult Food Service Order Clerk Intake/History Entered On: 05/09/2016 9:03 CDT Performed [...] ft 2 inch(es), 74 inch(es)) BECKY HAGER [facility] - 05/09/2016 9:01 CDT General Info Information Given By : Patient Preferred Communication Mode : Verbal Languages : Guyanese Is Patient Female and 13-50 no hysterectomy : No BECKY HAGER [facility] - 05/09/2016 9:01 CDT Subjective Pain Symptoms : No BECKY HAGER LPN - 05/09/2016 9:01 CDT Dependent Habits Exposure to Tobacco Smoke : Other: quit in 1982 Smoking Status : Former smoker Tobacco 2A : Yes Tobacco Use/Currently Using : No Tobacco Use/Last 30 Days : No Tobacco Use/Last 12 months : No Tobacco Last Use/Year : 1982 BECKY HAGER [facility] - 05/09/2016 9:01 CDT Caffeine Use Grid Caffeine Use : Current Type : Chocolate, Coffee, Soft drinks Frequency : Daily BECKY HAGER [facility] - 05/09/2016 9:01 CDT Recreational Drug Use Grid Drug Use : None BECKY HAGER [facility] - 05/09/2016 9:01 CDT Source: [facility] [employer] Document Id: [id number] CDT!34 documented in this encounter Plan of Treatment Not on filedocumented as of this encounter Procedures Procedure Name Priority Date/Time Associated Comments Diagnosis URINALYSIS WITH Routine 05/09/2016 9:45 AM Result s for this MICROSCOPIC CDT procedure are i n the results section. BACTERIAL CULTURE, Routine 05/09/2016 9:45 AM Res ults for this AEROBIC, URINE CDT procedure are in the results section. ZZPATHOLOGY NON-ADVANCED MANUFACTURING VICE PRESIDENT Routine 05/09/2016 7:43 AM Re sults for this CYTOLOGY CDT procedure are i n the results section. documented in this encounter Results (ABNORMAL) Urinalysis, Complete, Includes Microscopic (05/09/2016 9:45 AM CDT) [facility] gist Method Time Signature HXUR WBC. None Seen None Seen POWERCHART HPF HXUR RBC. None Seen None Seen POWERCHART HPF Casts, Hyaline 1-3 (A) None Seen POWERCHART LPF HXUr Color Yellow Yellow POWERCHART Clarity Clear Clear POWERCHART Glucose Negative Negative POWERCHART HXBILIRUBIN Negative Negative POWERCHART Ketones, QL(U) Negative Negative POWERCHART Specific 1.017 1.001 - POWERCHART [place], POCT, U 1.035 pH, POCT, Urine 5.5 [...] (05/09/2016 9:45 AM CDT) [facility] Signature Bacterial POWERCHART Culture, Aerobic, Urine HXFinal No growth POWERCHART Specimen (Source) Anatomical Collection Method Collection Time Re ceived Time Location / / Volume Laterality Urine, First 05/09/2016 9:45 AM Voided CDT Ailyn Bernal M.D. LAB MICROBIOLOGY - GENERAL O RDERABLES Performing Organization Address City/[facility]/ZIP Code Phon e Number POWERCHART ZZPATHOLOGY NON-ADVANCED MANUFACTURING VICE PRESIDENT CYTOLOGY (05/09/2016 7:43 AM CDT) Specimen (Source) Anatomical Collection Method Collection Time Re ceived Time Location / / Volume Laterality 05/09/2016 7:43 AM CDT Narrative [facility] - 05/10/2016 1:[address] [facility] in [facility] [address] [place], [place] ??[address] Patient Name: BETH COSTA Patient ID #: [id number] Collected: 05/09/2016 Address: City/State/Zip: [address] [place], [place] [phone] Received: Reported: 05/10/2016 05/10/2016 Soc. Sec. #: ?/Age/Sex 1945 (Age: 70) ??M Physician(s): A REGIS Copy To: ? [facility] ?? [id number] [place], ??[place] ??[address] CYTOPATHOLOGY NON-ADVANCED MANUFACTURING VICE PRESIDENT REPORT FINAL CYTOLOGIC DIAGNOSIS Urine-VOIDED: DIAGNOSIS ATYPICAL UROTHELIAL CELLS CONSISTENT WIT H INFLAMMATION, CALCULUS, RECENT INSTRUMENTATION OR LOW GRADE PAPILLARY LESION. SATISFACTORY SPECIMEN FOR EVALUATION. Electronically Signed By [facility]/05/10/2016 [place] FARMER(ASCP) SPECIMEN(S) RECEIVED: Urine-VOIDED CLINICAL HISTORY: [...]
--- OUTSIDE RECORDS SUMMARY | 2022-05-27 12:12 | XMS_ITS | Encounter Summary ---
:1945 Author Organization [facility] Address [address] [place] [address] Care Team Providers Name Role Phone Unavailable Primary Care Provider Unavailable Encounter Details Date Type Department Care Team Description 08/19/2016 Hospital Encounter HX NO MAPPING Ewa Alejandro M.D. [address] [place], [place] [phone] (Wo rk) Social History [...] do you attend episcopalian or Never 2021 cheondoism services? Do you [...] Historical Provider Ser - 08/19/2016 11:59 PM SHIPMASTER Coding Summary-Paper Based CODING DATE: 08/29/2016 FINAL [facility] STATUS: * Discharged to Home or Self [...] ROSE Date Saved: 08/29/2016 07:37 am Source: [employer] Document Id: [id number] documented in this encounter Plan of Treatment Not on filedocumented as of this encounter Visit Diagnoses Not on filedocumented in this encounter Additional Health Concerns Assessment Noted Time PHQ-9 Depression Total Score: 6 01/31/2015 12:28 PM CD T documented as of this encounter
--- OUTSIDE RECORDS SUMMARY | 2022-05-27 12:12 | XMS_ITS | Encounter Summary ---
:1945 Author Organization [facility] Address [address] [place] [address] Care Team Providers Name Role Phone Unavailable Primary Care Provider Unavailable Encounter Details Date Type Department Care Team Description 08/28/2016 Hospital Encounter HX NO MAPPING Virginia Bernal M.D. [address] [place], [place] [phone] (Wo rk) Social History [...] do you attend episcopalian or Never 2021 church services? Do you [...] THOMAS LPN on August 30, 2016 11:51:29 FLATWORK PRESSER Patient was informed of normal results. He was also scheduled with a 3 month follow up cystoscopy. From: AILYN BERNAL MD To: Urology Nurse; Sent: 08/30/2016 11:27:50 FLATWORK PRESSER ! Show up: 08/30/2016 11:27:50 FLATWORK PRESSER Subject: Results Notification Actions: Notify patient of results Reminder Comments: bladder bx; no cancer. Arrange office cysto in 3 months, and PVP as already planned Results: Date Result Type Result Name 08/30/2016 9:34 Document - mdoc Surgical Pathology Report Source: [facility] POWERCHART Document Id: [id number] Electronically signed by Conversion, [facility] Eyeglass Inspector [id number] at 02/23/2017 12:07 AM CDT documented in this encounter Plan of Treatment Not on filedocumented as of this encounter Procedures Procedure Name Priority Date/Time Associated Diagnosis Comme nts SURGICAL PATHOLOGY Routine 08/28/2016 12:00 AM Re sults for this FLATWORK PRESSER procedure are i n the results section. SURGICAL PATHOLOGY Routine 08/28/2016 12:00 AM Re sults for this FLATWORK PRESSER procedure are i n the results section. documented in this encounter Results Pathology Surgical Pathology (08/28/2016 12:00 AM FLATWORK PRESSER) Specimen (Source) Anatomical Location Collection Method / Collectio n Time Received Time / Laterality Volume 08/28/2016 Narrative [facility] - 08/30/20 16 11:27 AM FLATWORK PRESSER Historical Provider LAB SURG PATH ORDERABLES Performing Organization Address City/State/ZIP Code Phon e Number [facility] NA Pathology Surgical Pathology (08/28/2016 12:00 AM FLATWORK PRESSER) Specimen (Source) Anatomical Location Collection Method / Collectio n Time Received Time / Laterality Volume 08/28/2016 Narrative [facility] - 08/30/20 16 11:27 AM FLATWORK PRESSER PATIENT IMAGES Choose the Image button to view related documents. Historical Provider LAB SURG PATH ORDERABLES Performing Organization Address [facility] Phon e Number [facility] NA documented in this encounter Visit Diagnoses Not on filedocumented in this encounter Additional Health Concerns Assessment Noted Time PHQ-9 Depression Total Score: 6 01/31/2015 12:28 PM CD T documented as of this encounter
--- OUTSIDE RECORDS SUMMARY | 2022-05-27 12:12 | XMS_ITS | Encounter Summary ---
:1945 Author Organization [facility] Address [address] [place] [address] Care Team Providers Name Role Phone Unavailable Primary Care Provider Unavailable Encounter Details Date Type Department Care Team Description 05/13/2016 Hospital Encounter HX [facility] Ailyn Bernal M.D. [address] [place] [phone] (Wo rk) Social History Tobacco [...] do you attend samaritan or Never 2021 yarsani services? Do you [...] Bernal M.D. - 05/13/2016 2:26 PM CDT [id number] CHIEF COMPLAINT/REASON FOR VISIT Gross hematuria. HISTORY [...] Ailyn Bernal M.D./phong cc: Ewa Hinton M.D. [facility] [place] [address] Electronically Signed By: AILYN BERNAL MD On: 05/14/2016 07:30 AM Source: [facility] MHSDOLBEYNONRADSYS Document Id: [id number] documented in this encounter Procedure Notes Aiyln Bernal M.D. - 05/13/2016 4:19 PM CDT [...] BERNAL MD On: 05/13/2016 04:22 PM Source: [facility] POWERCHART Document Id: [id number] documented in this encounter Miscellaneous Notes Miscellaneous - Ailyn Bernal M.D. - 05/13/2016 4:19 PM CDT Ambulatory Patient Summary [facility] [address] [place] [id number] Visit Information Name: JONNATHAN COSTA [facility] Number: [id number] Current Date: 05/13/2016 16:19:32 Physicians [...] if you dont have one. Go to [email or web address] and click on Create Your Account. Then, follow the directions to complete the online form. Youll be asked for your [facility] number which you can find at the top of this document. Your Goals/Additional instructions: Source: [facility] POWERCHART Document Id: [id number] Miscellaneous - Ailyn Bernal M.D. - 05/13/2016 4:19 PM CDT Ambulatory Discharge Medication List [address] [id number] Visit Information Name: JONNATHAN COSTA [facility] Number: [id number] Visit Date: 05/13/2016 16:19:31 Attending [...] MD Signed On:13-MAY-2016 16:19:29 Additional Information: Source: [facility] POWERCHART Document Id: [id number] Miscellaneous - Becky Hager, L.P.N. - 05/13/2016 2:31 PM CDT Adult Senior Regulatory Affairs Specialist Intake/History Adult Senior Regulatory Affairs Specialist Intake/History Entered On: 05/13/2016 14:33 CDT Performed [...] Preferred Communication Mode : Verbal Languages : Kuwaiti Is Patient Female and 13-50 no hysterectomy [...] Tobacco Last Use/Year : 1982 BECKY HAGER [facility] - 05/13/2016 14:31 CDT Caffeine Use Grid Caffeine Use : Current Type : Chocolate, Coffee, Soft drinks Frequency : Daily BECKY HAGER [facility] - 05/13/2016 14:31 CDT Recreational Drug Use Grid Drug Use : None BECKY HAGER [facility] - 05/13/2016 14:31 CDT Source: [facility] [employer] Document Id: [id number] CDT!35 documented in this encounter Plan of [...] Received Time / Laterality Volume 05/22/2016 Narrative [facility] - 05/24/20 16 11:07 AM CDT Historical Provider LAB SURG PATH ORDERABLES Performing Organization Address City/[facility]/ZIP Code Phon e Number [facility] NA Pathology Surgical Pathology (05/22/2016 12:00 AM CDT) Specimen (Source) Anatomical Location Collection Method / Collectio n Time Received Time / Laterality Volume 05/22/2016 Narrative [facility] - 05/24/20 16 11:07 AM CDT PATIENT IMAGES Choose the Image button to view related documents. Historical Provider LAB SURG PATH ORDERABLES Performing Organization Address City/State/ZIP Code Phon e Number [facility] NA documented in this encounter Visit Diagnoses Not on filedocumented in this encounter Additional Health Concerns Assessment Noted Time PHQ-9 Depression Total Score: 6 01/31/2015 12:28 PM CD T documented as of this encounter
--- OUTSIDE RECORDS SUMMARY | 2022-05-27 12:12 | XMS_ITS | Encounter Summary ---
:1945 Author Organization [facility] Address [address] [place] [address] Care Team Providers Name Role Phone Unavailable Primary Care Provider Unavailable Encounter Details Date Type Department Care Team Description 08/12/2016 Hospital Encounter HX [facility] Cesar Fernandes, URGENTCAR P.A.-C. [address] , [address] [phone] (Wo rk) Social History Tobacco Use Types [...] do you attend pentecostal or Never 2021 episcopalian services? Do you [...] Comments Blood Pressure 145/76 08/12/2016 10:41 AM ANATOMICAL EMBALMER Pulse 85 08/12/2016 10:41 AM ANATOMICAL EMBALMER Temperature - - Respiratory Rate 24 08/12/2016 10:41 AM ANATOMICAL EMBALMER Oxygen Saturation - - Inhaled Oxygen Concentration - - Weight 109 kg (239 lb 10.2 oz) 08/12/2016 10:41 AM ANATOMICAL EMBALMER Height - - Body Mass Index 30.75 [...] Brock P.A.-C. - 08/12/2016 9:45 AM CST [id number] CHIEF COMPLAINT/REASON FOR VISIT Productive cough, sinus pressure. HISTORY OF PRESENT ILLNESS This is a 71-year-old male who has had a productive cough for 2 months. He has home prednisone prescription that he gets [place] the [place] that he started taking his burst of [...] if symptoms do not improve. Cesar Brock P.A.-C./phong Electronically Signed By: CESAR BROCK PA-C On: 08/13/2016 02:54 PM Source: [facility] MHSDOLBEYNONRADSYS Document Id: [id number] OMICAL EMBALMER documented in this encounter Miscellaneous Notes Miscellaneous - Cesar Brock P.A.-C. - 08/12/2016 10:58 AM CST Ambulatory Patient Summary [facility] [address] [place], [place] [phone] Visit Information Name: JONNATHAN COSTA [facility] Number: [id number] Current Date: 08/12/2016 10:58:21 [...] directed x 5 day(s) New Routed to [facility] [address] [place] [address] budesonide-formoterol (budesonide-formoterol 160 mcg-4.5 mcg/inh inhalation aerosol) [...] Date Time Location Provider 08/19/2016 08:15 [facility] 08/29/2016 10:15 OWOC [...] if you dont have one. Go to [email or web address] and click on Create Your Account. Then, follow the directions to complete the online form. Youll be asked for your [facility] number which you can find at the top of this document. Your Goals/Additional instructions: Source: [facility] POWERCHART Document Id: [id number] OMICAL EMBALMER Miscellaneous - Cesar Brock P.A.-C. - 08/12/2016 10:58 AM CST Ambulatory Discharge Medication List [facility] [address] [place], [place] [phone] Visit Information Name: JONNATHAN COSTA [facility] Number: [id number] Current Date: 08/12/2016 10:58:20 [...] directed x 5 day(s) New Routed to [facility] [address] [place] [address] budesonide-formoterol (budesonide-formoterol 160 mcg-4.5 mcg/inh [...] PA-C Signed On:12-AUG-2016 10:58:18 Additional Information: Source: [facility] POWERCHART Document Id: [id number] OMICAL EMBALMER Miscellaneous - Opal Banda, L.P.N. - 08/12/2016 10:41 AM CST Adult House Coordinator Intake/History Adult House Coordinator Intake/History Entered On: 08/12/2016 10:46 ANATOMICAL EMBALMER Performed On: 08/12/2016 10:41 ANATOMICAL EMBALMER by OPAL BANDA ASSISTANT INFANT TODDLER TEACHER Intake Chief Complaint : Productive cough, clesar to light yellow, sinus pressure Onset of Symptoms : 2 months Ambulatory Intake Additional Information : T[facility], ithelped History of Agent [place] per patient Temperature Oral : 36.6 DegC(Converted [...] Weight Clinic : 108.7 kg OPAL BANDA [facility] - 08/12/2016 10:41 ANATOMICAL EMBALMER General Info Information Given By : Patient Languages : Serbian Is Patient Female and 13-50 no hysterectomy : No OPAL BANDA [facility] - 08/12/2016 10:41 ANATOMICAL EMBALMER Subjective Pain Symptoms : No OPAL BANDA [facility] 08/12/2016 10:41 ANATOMICAL EMBALMER Dependent Habits Exposure to Tobacco Smoke : Other: quit in 1982 Smoking Status : Former smoker Tobacco 2A : Yes Tobacco Use/Currently Using : No Tobacco Use/Last 30 Days : No Tobacco Use/Last 12 months : No Tobacco Last Use/Year : 1982 OPAL BANDA [facility] - 08/12/2016 10:41 ANATOMICAL EMBALMER Caffeine Use Grid Caffeine Use : Current Type : Chocolate, Coffee, Soft drinks Frequency : Daily [facility]AL B[facility]DA [facility] - 08/12/2016 10:41 ANATOMICAL EMBALMER Recreational Drug Use Grid Drug Use : None OPAL BANDA [facility] 08/12/2016 10:41 ANATOMICAL EMBALMER Source: [id number] Document Id: [id number] ANATOMICAL EMBALMER!39 OMICAL EMBALMER documented in this encounter Plan of Treatment Not on filedocumented as of this encounter Visit Diagnoses Not on filedocumented in this encounter Additional Health Concerns Assessment Noted Time PHQ-9 Depression Total Score: 6 01/31/2015 12:28 PM CD T documented as of this encounter
--- OUTSIDE RECORDS SUMMARY | 2022-05-27 12:12 | XMS_ITS | Encounter Summary ---
:[address] [facility] Address [address] [place] [address] Care Team Providers Name Role Phone Unavailable Primary Care Provider Unavailable Encounter Details Date Type Department Care Team Description 11/07/2016 Hospital Encounter HX NO MAPPING Virginia Bernal M.D. [address] [place], [place] [phone] (Wo rk) Social History [...] do you attend orthodox or Never 2021 yazidi services? Do you [...]
--- OUTSIDE RECORDS SUMMARY | 2022-05-27 12:12 | XMS_ITS | Encounter Summary ---
:1945 Author Organization [facility] Address [address] [place] [address] Care Team Providers Name Role Phone Unavailable Primary Care Provider Unavailable Encounter Details Date Type Department Care Team Description 08/27/2016 Hospital Encounter HX [facility] Ewa Forbes M.D. [address] [place], [place] [phone] (Wo rk) Social History [...] do you attend anglican or Never 2021 orthodoxy services? Do you [...] Comments Blood Pressure 132/80 08/27/2016 2:28 PM GRAIN ELEVATOR AGENT Pulse 84 08/27/2016 2:28 PM GRAIN ELEVATOR AGENT Temperature - - Respiratory Rate 20 08/27/2016 2:28 PM GRAIN ELEVATOR AGENT Oxygen Saturation - - Inhaled Oxygen Concentration - - Weight 109 kg (240 lb 8.4 oz) 08/27/2016 2:28 PM GRAIN ELEVATOR AGENT Height 189 cm (6' 2.41) 08/27/2016 2:28 PM GRAIN ELEVATOR AGENT Body Mass Index 30.54 08/27/2016 2:28 PM GRAIN ELEVATOR AGENT documented in this encounter Medications at Time [...] Weiss M.D. - 08/27/2016 2:12 PM CST [id number] CHIEF COMPLAINT/ REASON FOR VISIT Recheck URI [...] Status post left cataract surgery at the [place]. 8. Tonsillectomy. 9. Obstructive sleep apnea, prescribed [...] on 08/28/[address] Bernal at the [facility]. 2. Type II diabetes mellitus. [...] behalf by Lulu Roldan, a trained medical oncologist. The creation of this record is based on the scribe's personal observations and the provider's statements to them. This document has been christie cked and approved by the attending provider. Ewa Hinton M.D./livia Electronically Signed By: EWA WEISS MD On: 09/04/2016 08:22 AM Source: [facility] MHSDOLBEYNJESSIESYS Document Id: [id number] N ELEVATOR AGENT documented in this encounter Miscellaneous Notes Miscellaneous - Sugey Polanco C.M.A. - 08/27/2016 2:28 PM CST Adult Mill Worker Intake/History Adult Mill Worker Intake/History Entered On: 08/27/2016 14:31 GRAIN ELEVATOR AGENT Performed On: 08/27/2016 14:28 GRAIN ELEVATOR AGENT by SUGEY POLANCO [facility] Intake Chief Complaint : 1: final surgeryl [...] Mass Index : 30.54 kg/m2 SUGEY POLANCO [facility] - 08/27/2016 14:28 GRAIN ELEVATOR AGENT General Info Information Given By : Patient Languages : Maltese Is Patient Female and 13-50 no hysterectomy : No SUGEY POLANCO CMA - 08/27/2016 14:28 GRAIN ELEVATOR AGENT Subjective Pain Symptoms : No SUGEY POLANCO CMA - 08/27/2016 14:28 GRAIN ELEVATOR AGENT Dependent Habits Exposure to Tobacco Smoke : Other: quit in 1982 Smoking Status : Former smoker Tobacco 2A : Yes Tobacco Use/Currently Using : No Tobacco Use/Last 30 Days : No Tobacco Use/Last 12 months : No Tobacco Last Use/Year : 1982 SUGEY POLANCO [facility] - 08/27/2016 14:28 GRAIN ELEVATOR AGENT Caffeine Use Grid Caffeine Use : Current Type : Chocolate, Coffee, Soft drinks Frequency : Daily SUGEY POLANCO [facility] - 08/27/2016 14:28 GRAIN ELEVATOR AGENT Recreational Drug Use Grid Drug Use : None SUGEY POLANCO [facility] - 08/27/2016 14:28 GRAIN ELEVATOR AGENT Source: [facility] Micrima Document Id: [id number] GRAIN ELEVATOR AGENT!42 N ELEVATOR AGENT documented in this encounter Plan of Treatment Not on filedocumented as of this encounter Visit Diagnoses Not on filedocumented in this encounter Additional Health Concerns Assessment Noted Time PHQ-9 Depression Total Score: 6 01/31/2015 12:28 PM CD T documented as of this encounter
--- OUTSIDE RECORDS SUMMARY | 2022-05-27 12:12 | XMS_ITS | Encounter Summary ---
:1945 Author Organization [facility] Address [address] [place] [address] Care Team Providers Name Role Phone Unavailable Primary Care Provider Unavailable Encounter Details Date Type Department Care Team Description 08/19/2016 Hospital Encounter HX [facility] Piero Forbes M.D. [address] [place], [place] [phone] (Wo rk) Social History [...] do you attend yarsani or Never 2021 methodist services? Do you [...] Comments Blood Pressure 126/64 08/19/2016 8:22 AM LEGAL NURSE CONSULTANT Pulse 96 08/19/2016 8:22 AM LEGAL NURSE CONSULTANT Temperature - - Respiratory Rate 16 08/19/2016 8:22 AM LEGAL NURSE CONSULTANT Oxygen Saturation - - Inhaled Oxygen Concentration - - Weight 107 kg (235 lb 10.8 oz) 08/19/2016 8:22 AM LEGAL NURSE CONSULTANT Height 189 cm (6' 2.41) 08/19/2016 8:22 AM LEGAL NURSE CONSULTANT Body Mass Index 29.93 08/19/2016 8:22 AM LEGAL NURSE CONSULTANT documented in this encounter Medications at Time [...] Weiss M.D. - 08/19/2016 8:06 AM CST [id number] Document Contains Addenda CHIEF COMPLAINT/ REASON FOR VISIT Proposed surgery date: 08/28/2016. Surgeon: Dr. Prasanna Luevano. Proposed surgery: Greenlight photo selective vaporization of the prostate. Location: [facility]. HISTORY OF PRESENT ILLNESS Beth is a [...] got full again. Beth was seen at [facility] in [place] on 08/12/2016 when he was treated for a URI with Azithromycin. He feels that he has improved but continues to have a productive cough. 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 Beth has been diagnosed with asthma and [...] diabetes. He has labs done at the [place]. Jelena last A1C was on 07/17/2016 with [...] dysfunction. 6. Pulmonary symptomatology, diagnosis at the [place] unclear, but probably some degree of COPD. 7. Status post left cataract surgery at the [place]. 8. Tonsillectomy. 9. Obstructive sleep apnea, prescribed [...] doesn't smoke. 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 FAMILY HISTORY Mother had hypertension. There is no colon or prostate cancer in the family. There is no diabetes. Father had an [place] at age 76. Asthma and mental illness [...] Albuterol inhaler, as above. Will refer to [facility] for further evaluation. 5. Follow up. The patient will contact the clinic with any new or worsening symptoms. ADDENDUM 08/27/2016: Mr. Costa was re-evaluated today in clinic regarding his recent URI; he is back to his baseline. Heis cleared up to and including general anesthesia and may proceed with surgery as scheduled on 08/28/[address]uevano at the [facility]. This document serves as a record of services personally performed by Piero [facility] MD. It was created on their behalf by Lulu Roldan, a trained biomedical engineer. The creation of this record is based on the scribe's personal observations and the provider's statements to them. This document has been christie cked and approved by the attending provider. Piero Hinton M.D./livia cc: [place] [address] Electronically Signed By: PIERO WEISS MD On: 09/25/2016 11:39 PM Source: [facility] MHSDOLBEYNONRADSYS Document Id: [id number] L NURSE CONSULTANT documented in this encounter Miscellaneous Notes Telephone Encounter - Conversion, Historical Provider Ser - 08/27/2016 8:47 AM CST *Phone Message/Dr. Piero Roy Document Contains Addenda Addendum by JACQUIE HAMILTON LPN on August 27, 2016 13:03:58 LEGAL NURSE CONSULTANT patient added to todays schedule forfinal clearance for surgical proceedure scheduled for 08/28/2016 Addendum by JACQUIE HAMILTON LPN on August 27, 2016 9:03 LEGAL NURSE CONSULTANT Caller is: ( _ ) Patient ( _ ) Parent ( _ ) Spouse ( _ ) Child ( x ) Other: _jimmie Call back telephone number: _ Reason for Call: -_patient surgery is scheduled for tomorrow 08/28/2016 and patient needs final clearance for proceedure and insulin instructions for tonight Chief Complaint: _[facility] needs final clearance added to h&p due to uri patient had at last appointmentand fax to jimmie at [facility] project scheduler moriah Disposition of Call/Coordination of Care: ( [...] day Callers preferred language: _ Was an wellness assistant used for this call? _ Other ( --_ ) Modified by and Electronically Signed by: JACQUIE HAMILTON LPN On: 08/27/2016 09:03 AM From: MCKINLEY MOSQUERA ([facility] Refrigeration Service Inspector) To: [facility] Nurse; Sent: 08/27/2016 08:47:46 LEGAL NURSE CONSULTANT Subject: *Phone Message/Dr. Piero Roy Caller is: ( ) Patient ( ) Mother ( ) Father ( ) Spouse ( ) Daughter ( ) Son ( ) Pharmacy ( x) Other: Jimmie from [facility] surgery scheduling Physician: Dr. Piero [facility] Patient MRN #: Reason for Call: Message: Jimmie needs to speak to someone regarding this patients H & P. She needs Dr. Roy to add an adendum regarding a follow up appointment that was mentioned in the dictation. Please call her back at [phone] [facility]. Advice/Action: Source used: ( ) Verbalizes understanding [...] back cell phone number ( ) Source: [facility] POWERCHART Document Id: [id number] L NURSE CONSULTANT Miscellaneous - Piero Weiss M.D. - 08/20/2016 2:06 PM LEGAL NURSE CONSULTANT Ambulatory Patient Summary [facility] [address] [place] [phone] Visit Information Name: BETH COSTA SERGIO [facility] Number: [id number] Current Date: 08/20/2016 14:06:33 Physicians [...] or shortness of breath. New Routed to [facility] [address] [place] [address] atorvastatin (atorvastatin 40 mg oral tablet) 1 [...] dont have one. Go to [email or web address] and click on Create Your Account. Then, follow the directions to complete the online form. Youll be asked for your [facility] number which you can find at the top of this document. Your Goals/Additional instructions: Begin taking the albuterol inhaler 2 puffs at least twice daily.Stop taking the Plavix one week prior to the scheduled procedure. Source: [facility] POWERCHART Document Id: [id number] L NURSE CONSULTANT Miscellaneous - Piero Weiss M.D. - 08/20/2016 2:06 PM LEGAL NURSE CONSULTANT Ambulatory Discharge Medication List [address] [phone] Visit Information Name: BETH COSTA [facility] Number: [id number] Current Date: 08/20/2016 14:06:32 Attending [...] or shortness of breath. New Routed to [facility] [address] [place] [address] atorvastatin (atorvastatin 40 mg oral tablet) 1 [...] MD Signed On:20-AUG-2016 14:06:28 Additional Information: Source: [facility] iExploreCHART Document Id: [id number] L NURSE CONSULTANT Miscellaneous - Piero Weiss M.D. - 08/19/2016 9:06 AM LEGAL NURSE CONSULTANT Addendum by JACQUIE HAMILTON LPN on August 19, 2016 12:53:52 LEGAL NURSE CONSULTANT referal completed From: PIERO WEISS MD To: LAWSON [facility] Nurse; Sent: 08/19/2016 09:06:40 LEGAL NURSE CONSULTANT Please arrange for pulmonary consult at [facility] to evaluate asthma. Source: [facility] EmSense Document Id: [id number] Miscellmaria e - Jacquie Hamilton, L.P.N. - 08/19/2016 8:25 AM CST Obstructive Sleep Apnea Obstructive Sleep Apnea Entered On: 08/19/2016 8:26 LEGAL NURSE CONSULTANT Performed On: 08/19/2016 8:25 LEGAL NURSE CONSULTANT by JACQUIE HAMILTON LPN AGNIESZKA Screening Known Obstructive Sleep Apnea : Patient diagnosed with AGNIESZKA; DOES NOT USE sleep machine AGNIESZKA Score : No qualifying data available. AGNIESZKA Results : No qualifying data available. JACQUIE HAMILTON LPN - 08/19/2016 8:25 LEGAL NURSE CONSULTANT Source: [facility] iExploreCHART Document Id: [id number] LEGAL NURSE CONSULTANT!5 L NURSE CONSULTANT Miscellaneous - Jacquie Hamilton L.P.N. - 08/19/2016 8:22 AM CST Adult Predatory Animal Exterminator Intake/History Adult Predatory Animal Exterminator Intake/History Entered On: 08/19/2016 8:25 LEGAL NURSE CONSULTANT Performed On: 08/19/2016 8:22 LEGAL NURSE CONSULTANT by JACQUIE HAMILTON [place] LETTER CARRIER Intake Chief Complaint : pre op physical for green light proceedure to be completed on 08/28/[address] luevano at [facility] Temperature Core : 36.4 DegC(Converted to: 97.5 [...] 44 cm(Converted to: 17 inch(es)) JACQUIE HAMILTON [place] LETTER CARRIER - 08/19/2016 8:22 LEGAL NURSE CONSULTANT General Info Information Given By : Patient Preferred Communication Mode : Verbal Languages : Estonian Is Patient Female and 13-50 no hysterectomy : No JACQUIE HAMILTON LPN - 08/19/2016 8:22 LEGAL NURSE CONSULTANT Subjective Pain Symptoms : Yes JACQUIE HAMILTON LPN - 08/19/2016 8:22 LEGAL NURSE CONSULTANT Pain Scale Pain Scale Verbal 0-10 : Open JACQUIE HAMILTON LPN - 08/19/2016 8:22 LEGAL NURSE CONSULTANT Pain Pain Assessment Grid Pain 1 Location : Abdomen Laterality : Other: lower abdomen cramping Intensity : 1 JACQUIE HAMILTON LPN - 08/19/2016 8:22 LEGAL NURSE CONSULTANT Dependent Habits Exposure to Tobacco Smoke : Other: quit in 1982 Smoking Status : Former smoker Tobacco 2A : Yes Tobacco Use/Currently Using : No Tobacco Use/Last 30 Days : No Tobacco Use/Last 12 months : No Tobacco Last Use/Year : 1982 JACQUIE HAMILTON LPN - 08/19/2016 8:22 LEGAL NURSE CONSULTANT Caffeine Use Grid Caffeine Use : Current Type : Chocolate, Coffee, Soft drinks Frequency : Daily JACQUIE HAMILTON [place] LETTER [employer] - 08/19/2016 8:22 LEGAL NURSE CONSULTANT Recreational Drug Use Grid Drug Use : None JACQUIE HAMILTON [place] LETTER CARRIER - 08/19/2016 8:22 LEGAL NURSE CONSULTANT Source: [facility] POWERCHART Document Id: [id number] LEGAL NURSE CONSULTANT!52 L NURSE CONSULTANT documented in this encounter Plan of Treatment Not on filedocumented as of this encounter Procedures Procedure Name Priority Date/Time Associated Comments Diagnosis ALBUMIN, RANDOM, U Routine 08/19/2016 9:13 AM Res ults for this LEGAL NURSE CONSULTANT procedure are i n the results section. URINALYSIS WITH Routine 08/19/2016 9:13 AM Result s for this MICROSCOPIC LEGAL NURSE CONSULTANT procedure are i n the results section. BACTERIAL CULTURE, Routine 08/19/2016 9:13 AM Res ults for this AEROBIC, URINE LEGAL NURSE CONSULTANT procedure are in the results section. documented in this encounter Results (ABNORMAL) Microalbumin, Random, Urine (08/19/2016 9:13 AM LEGAL NURSE CONSULTANT) athologist Signature Creatinine, 113 40 - 278 POWERCHART Random, U MGDL HXU Albumin % 49.3 MGL POWERCHART Albumin/Creatin 44 (H) 0 - 17 MGG POWERCHART ine Ratio Specimen (Source) Anatomical Collection Method Collection Time Re ceived Time Location / / Volume Laterality Urine 08/19/2016 9:13 AM LEGAL NURSE CONSULTANT Piero Alejandro M.D. LAB URINE ORDERABLES Performing Organization Address City/State/ZIP Code Phon e Number POWERCHART (ABNORMAL) Urinalysis, Complete, Includes Microscopic (08/19/2016 9:13 AM LEGAL NURSE CONSULTANT) athologist Signature Clarity Clear Clear POWERCHART HXUr Color Yellow Colorless POWERCHART Specific 1.020 POWERCHART [place], POCT, U Comment: Reference Range Specific [place]: 1.000-1.035 pH, POCT, Urine 5.5 <5.0 POWERCHART [...] Laterality Urine, First 08/19/2016 9:13 AM Voided LEGAL NURSE CONSULTANT Piero Alejandro M.D. LAB URINE ORDERABLES Performing Organization Address City/State/ZIP Code Phon e Number POWERCHART Bacterial Culture, Aerobic, Urine (08/19/2016 9:13 AM LEGAL NURSE CONSULTANT) Analysis Performed At Patho logist Time Signature Bacterial POWERCHART Culture, Aerobic, Urine HXFinal No growth POWERCHART Specimen (Source) Anatomical Collection Method Collection Time Re ceived Time Location / / Volume Laterality Urine, First 08/19/2016 9:13 AM Voided LEGAL NURSE CONSULTANT Piero Alejandro M.D. LAB MICROBIOLOGY - GEN ERAL ORDERABLES Performing Organization Address City/State/ZIP Code Phon e Number POWERCHART documented in this encounter Visit Diagnoses Not on filedocumented in this encounter Additional Health Concerns Assessment Noted Time PHQ-9 Depression Total Score: 6 01/31/2015 12:28 PM CD T documented as of this encounter
--- OUTSIDE RECORDS SUMMARY | 2022-05-27 12:12 | XMS_ITS | Encounter Summary ---
:1945 Author Organization [facility] Address [address] [place] [address] Care Team Providers Name Role Phone Unavailable Primary Care Provider Unavailable Encounter Details Date Type Department Care Team Description 10/07/2016 Hospital Encounter [facility]X [facility] Ailyn Bernal M.D. [address] [place] [address] (Wo rk) Social History Tobacco [...] do you attend episcopalian or Never 2021 alevism services? Do you [...] Comments Blood Pressure 132/70 10/07/2016 9:17 AM MARINE DESIGNER Pulse 88 10/07/2016 9:17 AM MARINE DESIGNER Temperature - - Respiratory Rate 20 10/07/2016 9:17 AM MARINE DESIGNER Oxygen Saturation - - Inhaled Oxygen Concentration [...] Bernal M.D. - 10/07/2016 9:01 AM CST [id number] CHIEF COMPLAINT/REASON FOR VISIT Lower urinary tract [...] BERNAL MD On: 10/07/2016 02:11 PM Source: [facility] MHSDOLBEYNONRADSYS Document Id: [id number] NE DESIGNER documented in this encounter Miscellaneous Notes Miscellaneous - Ailyn Bernal M.D. - 10/07/2016 9:57 AM CST Ambulatory Patient Summary [facility] [address] [place], [place] [phone] Visit Information Name: JONNATHAN COSTA [facility] Number: [id number] Current Date: 10/07/2016 09:57:41 Physicians [...] if you dont have one. Go to [email or web address] and click on Create Your Account. Then, follow the directions to complete the online form. Youll be asked for your [facility] number which you can find at the top of this document. Your Goals/Additional instructions: Source: [facility] POWERCHART Document Id: [id number] NE DESIGNER Miscellaneous - Ailyn Bernal M.D. - 10/07/2016 9:57 AM CST Ambulatory Discharge Medication List [facility] [address] [place], [place] [id number] Visit Information Name: JONNATHAN COSTA [facility] Number: [id number] Current Date: 10/07/2016 09:57:40 Attending [...] MD Signed On:07-OCT-2016 09:57:37 Additional Information: Source: [facility] POWERCHART Document Id: [id number] NE DESIGNER Miscellaneous - Lester Barry, C.M.A. - 10/07/2016 9:21 AM CST Urology AUA/BPH Symptom Score Urology AUA/BPH Symptom Score Entered On: 10/07/2016 9:23 MARINE DESIGNER Performed On: 10/07/2016 9:21 MARINE DESIGNER by LESTER BARRY CMA Urology AUA/BPH Symptom [...] About Urinary Condition : Satisfied LESTER BARRY CARE TECH - 10/07/2016 9:21 MARINE DESIGNER [facility]: [facility] Document Id: [id number] MARINE DESIGNER!11 NE DESIGNER Miscellaneous - Lester Barry, C.M.A. - 10/07/2016 9:17 AM CST Adult Public Relations Manager Intake/History Adult Public Relations Manager Intake/History Entered On: 10/07/2016 9:21 MARINE DESIGNER Performed On: 10/07/2016 9:17 MARINE DESIGNER by LESTER BARRY [facility] Intake Chief Complaint : Rck: s/p greenlight [...] Large LESTER BARRY CMA - 10/07/2016 9:17 MARINE DESIGNER General Info Information Given By : Patient Preferred Communication Mode : Verbal Languages : German Is Patient Female and 13-50 no hysterectomy : No LESTER BARRY CMA - 10/07/2016 9:17 MARINE DESIGNER Subjective Pain Symptoms : No LESTER BARRY [facility] - 10/07/2016 9:17 MARINE DESIGNER Dependent Habits Exposure to Tobacco Smoke : Other: quit in 1982 Smoking Status : Former smoker Tobacco 2A : Yes Tobacco Use/Currently Using : No Tobacco Use/Last 30 Days : No Tobacco Use/Last 12 months : No Tobacco Last Use/Year : 1982 LESTER BARRY [facility] - 10/07/2016 9:17 MARINE DESIGNER Caffeine Use Grid Caffeine Use : Current Type : Chocolate, Coffee, Soft drinks Frequency : Daily LESTER BARRY [facility] - 10/07/2016 9:17 MARINE DESIGNER Recreational Drug Use Grid Drug Use : None LESTER BARRY [facility] - 10/07/2016 9:17 MARINE DESIGNER Source: [employer] Document Id: [id number] MARINE DESIGNER!34 NE DESIGNER documented in this encounter Plan of Treatment Not on filedocumented as of this encounter Visit Diagnoses Not on filedocumented in this encounter Additional Health Concerns Assessment Noted Time PHQ-9 Depression Total Score: 6 01/31/2015 12:28 PM CD T documented as of this encounter
--- OUTSIDE RECORDS SUMMARY | 2022-05-27 12:12 | XMS_ITS | Encounter Summary ---
:1945 Author Organization [facility] Address [address] [place] [address] Care Team Providers Name Role Phone Unavailable Primary Care Provider Unavailable Encounter Details Date Type Department Care Team Description 05/28/2016 Hospital Encounter HX [facility] Ewa Moya i, M.D. [address] [place] [address] (Wo rk) Social History Tobacco [...] do you attend mandaen or Never 2021 protestant services? Do you [...] Weiss M.D. - 05/28/2016 3:15 PM CDT [id number] CHIEF COMPLAINT/ REASON FOR VISIT Low blood pressure. HISTORY OF PRESENT ILLNESS Jonnathan is a 70 year old male who presents to the clinic today for low blood pressure. When he was seen yesterday at the [facility] for catheter removal he was noted [...] behalf by Lulu Roldan, a trained medical technologist hematology. The creation of this record is based on the scribe's personal observations and the provider's statements to them. This document has been christie cked and approved by the attending provider. Ewa Hinton M.D./livia Electronically Signed By: EWA WEISS MD On: 06/29/2016 11:54 AM Source: [facility] MHSDOLBEYNONRADSYS Document Id: [id number] documented in this encounter Miscellaneous Notes Miscellaneous - Ewa Weiss M.D. - 05/28/2016 5:31 PM CDT Ambulatory Patient Summary [address] [id number] Visit Information Name: JONNATHAN COSTA [facility] Number: [id number] Current Date: 05/28/2016 17:31:20 Physicians [...] Appointments Date Time Location Provider 08/19/2016 08:15 [facility] Ewa Roy MD 08/29/2016 08:15 OW [...] online form. Youll be asked for your [facility] number which you can find at the top of this document. Your Goals/Additional instructions: Source: [facility] POWERCHART Document Id: [id number] Miscellaneous - Ewa Weiss M.D. - 05/28/2016 5:31 PM CDT Ambulatory Discharge Medication List [address] [id number] Visit Information Name: JONNATHAN COSTA [facility] Number: [id number] Visit Date: 05/28/2016 17:31:20 Attending [...] MD Signed On:28-MAY-2016 17:31:18 Additional Information: Source: [facility] POWERCHART Document Id: [id number] Miscellaneous - HamiltonMarti arana, L.P.N. - 05/28/2016 3:37 PM CDT Adult Metal Slitter Intake/History Adult Metal Slitter Intake/History Entered On: 05/28/2016 15:40 CDT Performed [...] Preferred Communication Mode : Verbal Languages : Albanian Is Patient Female and 13-50 no hysterectomy : No MARTI HAMILTON LPN - 05/28/2016 15:37 CDT Subjective Pain Symptoms : Yes MARTI HAMILTON LPN - 05/28/2016 15:37 CDT Pain Scale Pain Scale Verbal 0-10 : Open MRATI HAMILTON [facility] - 05/28/2016 15:37 CDT Pain Pain Assessment Grid Pain 1 Location : Bladder Laterality : Other: spasms Intensity : 5 MARTI HAMILTON IT SOFTWARE DEVELOPER - 05/28/2016 15:37 CDT Dependent Habits Exposure [...] HAMILTON LPN - 05/28/2016 15:37 CDT [facility] Document Id: [id number] CDT!43 documented in this encounter Plan of Treatment Not on filedocumented as of this encounter Visit Diagnoses Not on filedocumented in this encounter Additional Health Concerns Assessment Noted Time PHQ-9 Depression Total Score: 6 01/31/2015 12:28 PM CD T documented as of this encounter
--- OUTSIDE RECORDS SUMMARY | 2022-05-27 12:12 | XMS_ITS | Encounter Summary ---
:1945 Author Organization [facility] Address [address] [place] [address] Care Team Providers Name Role Phone Unavailable Primary Care Provider Unavailable Encounter Details Date Type Department Care Team Description 05/27/2016 Hospital Encounter [facility]X [facility] Ailyn Bernal M.D. [address] [place] [address] (Wo rk) Social History Tobacco [...] do you attend anabaptism or Never 2021 anabaptism services? Do you [...] Bernal M.D. - 05/27/2016 9:27 AM CDT [id number] CHIEF COMPLAINT/REASON FOR VISIT bladder tumor. HISTORY [...] Ailyn Bernal M.D./phong cc: Piero Hinton M.D. [facility] in [address] [address] Electronically Signed By: IALYN BERNAL MD On: 06/11/2016 07:56 AM Source: [facility] MHSDOLBEYNONRADSYS Document Id: [id number] documented in this encounter Miscellaneous Notes Miscellaneous - Ailyn Bernal M.D. - 05/27/2016 11:40 AM CDT Ambulatory Patient Summary [facility] [address] [place] [id number] Visit Information Name: BETH COSTA [facility] Number: [id number] Current Date: 05/27/2016 11:40:56 Physicians [...] Appointments Date Time Location Provider 08/19/2016 08:15 [facility] Piero Roy MD 08/29/2016 08:15 [facility] [...] if you dont have one. Go to [email or web address] and click on Create Your Account. Then, follow the directions to complete the online form. Youll be asked for your [facility] number which you can find at the top of this document. Your Goals/Additional instructions: Source: [facility] POWERCHART Document Id: [id number] Miscellaneous - Ailyn Bernal M.D. - 05/27/2016 11:40 AM CDT Ambulatory Discharge Medication List [address] [id number] Visit Information Name: BETH COSTA [facility] Number: [id number] Visit Date: 05/27/2016 11:40:55 Attending [...] MD Signed On:27-MAY-2016 11:40:45 Additional Information: Source: [facility] POWERCHART Document Id: [id number] Miscellaneous - Nayeli Nava CMauroMJeff. - 05/27/2016 10:31 AM CDT Care Coordination Message From: NAYELI NAVA [facility] To: PIERO ROJAS MD; Sent: 05/27/2016 10:31:13 CDT ! Subject: Care Coordination Message Patient was seen in [place], Urology. He is concerned about his blood pressure medication and whether or not it is necessary for him to continue taking it. He presents today a blood pressure of 98/56 and feeling light headed. Patient would like a call back from you or maybe a follow up appointment topossbly discontiue the medication or simply adjust the dosage. Please contact patient at [phone]. Source: [facility] POWERCHART Document Id: [id number] Electronically signed by Karen [facility] Agriculture Science Teacher [id number] at 02/23/2017 1:43 AM CDT Miscellaneous - [...] HAGER LPN - 05/27/2016 10:01 CDT [facility] Document Id: [id number] CDT!7 Miscellaneous - Becky Hager L.P.N. 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 - [...] if he should drive with his to [place], [place] about 200 miles away. Patient read in his instructions not to drive long distances and was wondering if this drive would effect his bladder biopsy at all. Source: [facility] Document Id: [id number] documented in this encounter Plan of Treatment Not on filedocumented as of this encounter Visit Diagnoses Not on filedocumented in this encounter Additional Health Concerns Assessment Noted Time PHQ-9 Depression Total Score: 6 01/31/2015 12:28 PM CD T documented as of this encounter
--- OUTSIDE RECORDS SUMMARY | 2022-05-27 12:12 | XMS_ITS | Encounter Summary ---
:1945 Author Organization [facility] Address [address] [place] [address] Care Team Providers Name Role Phone Unavailable Primary Care Provider Unavailable Encounter Details Date Type Department Care Team Description 08/29/2016 Hospital Encounter [facility]X [facility] Lo Rehman, FAROOQ, R.N. [address] [place] [address] (Wo rk) Social History Tobacco [...] do you attend protestant or Never 2021 confucianism services? Do you [...] Comments Blood Pressure 132/80 08/29/2016 10:45 AM RADIOISOTOPE PRODUCTION OPERATOR Pulse 80 08/29/2016 10:45 AM RADIOISOTOPE PRODUCTION OPERATOR Temperature - - Respiratory Rate - [...] APRN, RN On: 09/12/2016 08:21 AM Source: [facility] MHSDOLBEYNONRADSYS Document Id: [id number] OISOTOPE PRODUCTION OPERATOR documented in this encounter Miscellaneous Notes Miscellaneous - Raegan Rehman APRN, R.N. - 08/29/2016 11:22 AM RADIOISOTOPE PRODUCTION OPERATOR Ambulatory Patient Summary [facility] [address] [place], [place] [id number] Visit Information Name: JONNATHAN COSTA [facility] Number: [id number] Current Date: 08/29/2016 11:22:32 Physicians Attending Provider: RAEGAN REHMAN APRN butt welder Provider: PIERO ROJAS MD JONNATHAN COSTA has [...] if you dont have one. Go to [email or web address] and click on Create Your Account. Then, follow the directions to complete the online form. Youll be asked for your [facility] number which you can find at the top of this document. Your Goals/Additional instructions: Source: [facility] POWERCHART Document Id: [id number] OISOTOPE PRODUCTION OPERATOR Miscellaneous - Raegan Rehman APRN, R.N. - 08/29/2016 11:22 AM RADIOISOTOPE PRODUCTION OPERATOR Ambulatory Discharge Medication List [address] [id number] Visit Information Name: JONNATHAN COSTA [facility] Number: [id number] Current Date: 08/29/2016 11:22:31 Attending [...] RN Signed On:29-AUG-2016 11:22:17 Additional Information: Source: [facility] POWERCHART Document Id: [id number] OISOTOPE PRODUCTION OPERATOR Miscellaneous - Prudence Peralta, L.P.N. - 08/29/2016 10:45 AM CST Adult Audio Visual Production Specialist Intake/History Adult Audio Visual Production Specialist Intake/History Entered On: 08/29/2016 10:47 RADIOISOTOPE PRODUCTION OPERATOR Performed On: 08/29/2016 10:45 RADIOISOTOPE PRODUCTION OPERATOR by PRUDENCE PERALTA LPN Intake Chief Complaint : Trial void Temperature Core : 36.6 DegC(Converted to: 97.9 DegF) Peripheral Pulse Rate : 80 /min Heart Rhythm : Regular Systolic Blood Pressure : 132 mmHg Diastolic Blood Pressure : 80 mmHg NIBP Mean : 97 mmHg BP Location : Left upper extremity Blood Pressure Cuff Size : Regular PRUDENCE PERALTA LPN - 08/29/2016 10:45 RADIOISOTOPE PRODUCTION OPERATOR General Info Information Given By : Patient Preferred Communication Mode : Verbal Languages : Italian Is Patient Female and 13-50 no hysterectomy : No PRUDENCE PERALTA LPN - 08/29/2016 10:45 RADIOISOTOPE PRODUCTION OPERATOR Subjective Pain Symptoms : No PRUDENCE PERALTA LPN - 08/29/2016 10:45 RADIOISOTOPE PRODUCTION OPERATOR Dependent Habits Exposure to Tobacco Smoke : Other: quit in 1982 Smoking Status : Former smoker Tobacco 2A : Yes Tobacco Use/Currently Using : No Tobacco Use/Last 30 Days : No Tobacco Use/Last 12 months : No Tobacco Last Use/Year : 1982 PRUDENCE PERALTA LPN - 08/29/2016 10:45 RADIOISOTOPE PRODUCTION OPERATOR Caffeine Use Grid Caffeine Use : Current Type : Chocolate, Coffee, Soft drinks Frequency : Daily PRUDENCE PERALTA LPN - 08/29/2016 10:45 RADIOISOTOPE PRODUCTION OPERATOR Recreational Drug Use Grid Drug Use : None PRUDENCE PERALTA LPN - 08/29/2016 10:45 RADIOISOTOPE PRODUCTION OPERATOR [facility] Document Id: [id number] RADIOISOTOPE PRODUCTION OPERATOR!34 OISOTOPE PRODUCTION OPERATOR Miscellaneous - Omi Blevins - 07/16/2016 11:01 AM CDT *General Message-panel management From: OMI BLEVINS LPN Sent: 07/16/2016 11:01:56 CDT Subject: *General Message-panel management Pt is due for fasting diabetic labs and [facility] results to upcoming pre-op appt. Source: [facility] POWERCHART Document Id: [id number] Electronically signed by Conversion, [facility] Steward/Stewardess Night [id number] at 02/23/2017 7:04 AM CDT documented in this encounter Plan of Treatment Not on filedocumented as of this encounter Visit Diagnoses Not on filedocumented in this encounter Additional Health Concerns Assessment Noted Time PHQ-9 Depression Total Score: 6 01/31/2015 12:28 PM CD T documented as of this encounter
--- OUTSIDE RECORDS SUMMARY | 2022-05-27 12:12 | XMS_ITS | Encounter Summary ---
:1945 Author Organization [facility] Address [address] [place] [address] Care Team Providers Name Role Phone Unavailable Primary Care Provider Unavailable Encounter Details Date Type Department Care Team Description 11/07/2016 Hospital Encounter HX [facility] UR[facility] Ailyn Bernal M.D. [address] [place] [address] (Wo rk) Social History Tobacco [...] do you attend gnosticist or Never 2021 mosque services? Do you [...] Comments Blood Pressure 148/70 11/07/2016 9:46 AM GENERATION MECHANIC HELPER Pulse 72 11/07/2016 9:46 AM GENERATION MECHANIC HELPER Temperature - - Respiratory Rate 20 11/07/2016 9:46 AM GENERATION MECHANIC HELPER Oxygen Saturation - - Inhaled Oxygen Concentration [...] BERNAL MD On: 11/07/2016 10:19 AM Source: [facility] Document Id: [id number] RATION MECHANIC HELPER documented in this encounter Miscellaneous Notes Miscellaneous - Ailyn Bernal M.D. - 11/12/2016 5:07 PM CST Results Notification Document Contains Addenda Addendum by RODERICK THOMAS LPN on November 12, 2016 17:25:14 GENERATION MECHANIC HELPER Patient was informed of normal results. From: AILYN BERNAL MD To: Urology Nurse; Sent: 11/12/2016 17:07:59 GENERATION MECHANIC HELPER ! Show up: 11/12/2016 17:07:59 GENERATION MECHANIC HELPER Subject: Results Notification Actions: Notify patient of results Reminder Comments: FISH is neg Results: Date Result Name Value 11/07/2016 10:38 FUROC Result Sum-[place] Negative 11/07/2016 10:38 FUROC Result-[place] See Comment 11/07/2016 10:38 FUROC Interp-[place] See Comment 11/07/2016 10:38 FUROC Reason for Ref-[place] See Comment 11/07/2016 10:38 FUROC Spec-[place] Varies 11/07/2016 10:38 FUROC Source-[place] Urine, NOS 11/07/2016 10:38 FUROC Released By-[place] See Comment [facility] Document Id: [id number] Miscellaneous - Raegan Toney APRN, R.N. - 11/08/2016 4:29 PM GENERATION MECHANIC HELPER Results Notification Document Contains Addenda Addendum by RODERICK THOMAS LPN on November 08, 2016 17:23:08 GENERATION MECHANIC HELPER Fish pending. From: RAEGAN TONEY APRN RN To: Urology Nurse; Sent: 11/08/2016 16:29:56 GENERATION MECHANIC HELPER ! Show up: 11/08/2016 16:29:56 GENERATION MECHANIC HELPER Subject: Results Notification Actions: Notify patient of results Reminder Comments: cyto negative Results: Date Result Type Result Name 11/08/2016 12:59 Document - DOC Non-PHOTOGRAPHER MODEL Cytology Source: [facility] [employer] Document Id: [id number] Reji - Ailyn Bernal M.D. - 11/07/2016 10:19 AM CST Ambulatory Patient Summary [facility] [address] [place] [phone] Visit Information Name: BETH COSTA [facility] Number: [id number] Current Date: 11/07/2016 10:19:49 Physicians [...] in case of emergency. Electronically Signed By: AIYLN BERNAL MD Signed On:07-NOV-2016 10:19:44 Your Allergies [...] if you dont have one. Go to [email or web address] and click on Create Your Account. Then, follow the directions to complete the online form. Youll be asked for your [facility] number which you can find at the top of this document. Your Goals/Additional instructions: Source: [facility] POWERCHART Document Id: [id number] RATION MECHANIC HELPER Miscellaneous - Ailyn Bernal M.D. - 11/07/2016 10:19 AM CST Ambulatory Discharge Medication List [address] [phone] Visit Information Name: BETH COSTA [facility] Number: [id number] Current Date: 11/07/2016 10:19:48 Attending [...] MD Signed On:07-NOV-2016 10:19:44 Additional Information: Source: [facility] POWERCHART Document Id: [id number] RATION MECHANIC HELPER Miscellaneous - Janes Umanzor L.PMauroNMauro - 11/07/2016 9:46 AM CST Adult Manager Project Intake/History Adult Manager Project Intake/History Entered On: 11/07/2016 9:49 GENERATION MECHANIC HELPER Performed On: 11/07/2016 9:46 GENERATION MECHANIC HELPER by JANES UMANZOR LPN Intake Chief Complaint [...] air JANES UMANZOR LPN - 11/07/2016 9:46 GENERATION MECHANIC HELPER General Info Information Given By : Patient Preferred Communication Mode : Verbal Languages : Cymraes Is Patient Female and 13-50 no hysterectomy : No JANES UMANZOR LPN - 11/07/2016 9:46 GENERATION MECHANIC HELPER Subjective Pain Symptoms : No JANES UMANZOR LPN - 11/07/2016 9:46 GENERATION MECHANIC HELPER Dependent Habits Exposure to Tobacco Smoke : Other: quit in 1982 Smoking Status : Former smoker Tobacco 2A : Yes Tobacco Use/Currently Using : No Tobacco Use/Last 30 Days : No Tobacco Use/Last 12 months : No Tobacco Last Use/Year : 1982 JANES UMANZOR LPN - 11/07/2016 9:46 GENERATION MECHANIC HELPER Caffeine Use Grid Caffeine Use : Current Type : Chocolate, Coffee, Soft drinks Frequency : Daily JANES UMANZOR LPN - 11/07/2016 9:46 GENERATION MECHANIC HELPER Recreational Drug Use Grid Drug Use : None JANES UMANZOR LPN - 11/07/2016 9:46 GENERATION MECHANIC HELPER Source: [facility] POWERCHART Document Id: [id number] GENERATION MECHANIC HELPER!35 RATION MECHANIC HELPER documented in this encounter Plan of Treatment Not on filedocumented as of this encounter Procedures Procedure Name Priority Date/Time Associated Comments Diagnosis UROVYSION (R) FOR Routine 11/07/2016 10:38 Result s for this BLADDER CANCER AM GENERATION MECHANIC HELPER procedure are in the results section. ZZPATHOLOGY NON-PHOTOGRAPHER MODEL Routine 11/07/2016 9:06 AM Re sults for this CYTOLOGY GENERATION MECHANIC HELPER procedure are i n the results section. documented in this encounter Results UroVysion for Detection of Bladder Cancer, Urine (11/07/2016 10:38 AM GENERATION MECHANIC HELPER) [facility] gist Method Time Signature HXFUROC Result Negative POWERCHART [facility] HXFUROC See Comment POWERCHART Result-[place] Comment: RESULT: No evidence of urotheli al [...] Comment: RESULT: Evaluate for urothelial carcinoma. HXFUROC Spec-[place] Varies POWERCHART HXFUROC Source-[place] Urine, NOS POWERCHAR T HXFUROC Released By-[place] See Comment POW ERCHART Comment: RESULT: Miguelito Crowell M.D., Ph.D. Test Performed by: [facility] [place] [address] Rigger Helper: Jesus Louis II, M.D., Ph.D. Specimen (Source) Anatomical Collection Method Collection Time Re ceived Time Location / / Volume Laterality Urine 11/07/2016 10:38 AM GENERATION MECHANIC HELPER Ailyn Bernal M.D. LAB GENETIC TESTING Performing Organization Address City/State/ZIP Code Phon e Number POWERCHART ZZPATHOLOGY NON-PHOTOGRAPHER MODEL CYTOLOGY (11/07/2016 9:06 AM GENERATION MECHANIC HELPER) Specimen (Source) Anatomical Collection Method Collection Time Re ceived Time Location / / Volume Laterality 11/07/2016 9:06 AM GENERATION MECHANIC HELPER Narrative [facility] - 11/08/2016 12:59 PM GENERATION MECHANIC HELPER [facility] [address] [place], [place] ??[id number] Patient Name: BETH COSTA Patient ID #: [id number] Collected: 11/07/2016 Address: [facility]/State/Zip: [address] [place], [place] ??[phone] Received: Reported: 11/08/2016 11/08/2016 Soc. Sec. #: ?/Age/Sex 1945 (Age: 71) ??M Physician(s): Juana BERNAL MD Copy To: ? [facility] ?? [phone] [facility], ??[place] ??[address] CYTOPATHOLOGY NON-PHOTOGRAPHER MODEL REPORT FINAL CYTOLOGIC DIAGNOSIS Urine-VOIDED: NEGATIVE FOR HIGH-GRADE UROTHELIAL CARCINOMA SATISFACTORY SPECIMEN FOR EVALUATION. Electronically Signed By [facility]/11/08/2016 Pato FARMER([facility]) SPECIMEN(S) RECEIVED: Urine-VOIDED CLINICAL HISTORY: HISTORY OF BLADDER CANCER GROSS DESCRIPTION: 2 CYTOSPINS PREPARED FROM 25 ML YELLOW A LCOHOL FIXED FLUID. Ailyn Bernal M.D. LAB PATHOLOGY/CYTOLOGY ORDER ELISHA Performing Organization Address City/[facility]/ZIP Code Phon e Number [facility] documented in this encounter Visit Diagnoses Not on filedocumented in this encounter Additional Health Concerns Assessment Noted Time PHQ-9 Depression Total Score: 6 01/31/2015 12:28 PM CD T documented as of this encounter
--- OUTSIDE RECORDS SUMMARY | 2022-05-27 12:12 | XMS_ITS | Encounter Summary ---
:[address] [facility] Address [address] [place] [address] Care Team Providers Name Role Phone Unavailable Primary Care Provider Unavailable Encounter Details Date Type Department Care Team Description 05/09/2016 Hospital Encounter HX NO MAPPING Virginia Bernal M.D. [address] [place], [place] [phone] (Wo rk) Social History [...] do you attend nondenominational or Never 2021 gnosticism services? Do you [...]
--- OUTSIDE RECORDS SUMMARY | 2022-05-27 12:12 | XMS_ITS | Encounter Summary ---
:1945 Author Organization [facility] Address [address] [place] [address] Care Team Providers Name Role Phone Unavailable Primary Care Provider Unavailable Encounter Details Date Type Department Care Team Description 06/04/2016 Hospital Encounter HX [facility] FB NURSE Piero Hong i, M.D. [address] [place] [address] (Wo rk) Social History Tobacco [...] do you attend anglican or Never 2021 jew services? Do you [...] his surgery. B/P 131/67 Pulse 80 [facility] Document Id: [id number] Electronically signed by Karen [facility] [id number] at 02/23/2017 5:47 AM CDT Miscellaneous - [...] Pressure Cuff Size : Large ERICA MORGAN VISUAL MERCHANDISE MANAGER - 06/04/2016 10:01 CDT Source: [facility] Document Id: [id number] CDT!8 documented in this encounter Plan of Treatment Not on filedocumented as of this encounter Visit Diagnoses Not on filedocumented in this encounter Additional Health Concerns Assessment Noted Time PHQ-9 Depression Total Score: 6 01/31/2015 12:28 PM CD T documented as of this encounter
--- OUTSIDE RECORDS SUMMARY | 2022-05-27 12:12 | XMS_ITS | Encounter Summary ---
:1945 Author Organization [facility] Address [address] [place] [address] Care Team Providers Name Role Phone Unavailable Primary Care Provider Unavailable Encounter Details Date Type Department Care Team Description 05/09/2016 Hospital Encounter HX NO MAPPING Virginia Bernal M.D. [address] [place], [place] [phone] (Wo rk) Social History [...] do you attend tenriism or Never 2021 yarsani services? Do you [...] Coding Summary-Paper Based CODING DATE: 05/20/2016 FINAL [facility] STATUS: * Discharged to Home or Self [...] TREVIZO Date Saved: 05/20/2016 10:14 am Source: [facility] [place] Document Id: [id number] documented in this encounter Plan of Treatment Not on filedocumented as of this encounter Visit Diagnoses Not on filedocumented in this encounter Additional Health Concerns Assessment Noted Time PHQ-9 Depression Total Score: 6 01/31/2015 12:28 PM CD T documented as of this encounter
--- OUTSIDE RECORDS SUMMARY | 2022-05-27 12:12 | XMS_ITS | Encounter Summary ---
:1945 Author Organization [facility] Address [address] [place] [address] Care Team Providers Name Role Phone Unavailable Primary Care Provider Unavailable Encounter Details Date Type Department Care Team Description 08/29/2016 Hospital Encounter HX [facility] UROLOGY Prasanna Bernal M.D. [address] [place] [address] (Wo [...] do you attend islam or Never 2021 adventist services? Do you [...]
--- OUTSIDE RECORDS SUMMARY | 2022-05-27 12:12 | XMS_ITS | Encounter Summary ---
:1945 Author Organization [facility] Address [address] [place] [address] Care Team Providers Name Role Phone Unavailable Primary Care Provider Unavailable Encounter Details Date Type Department Care Team Description 05/16/2016 Hospital Encounter [facility]X [facility] FB FAMILYPRA Piero Moya i, M.D. [address] [place] [address] (Wo rk) Social History Tobacco [...] do you attend baptist or Never 2021 muslim services? Do you [...] Weiss M.D. - 05/16/2016 9:27 AM CDT [id number] CHIEF COMPLAINT/ REASON FOR VISIT Proposed surgery date: 05/22/2016. Surgeon: Dr. Prasanna Bernal. Proposed surgery: Cystoscopy with bladder biopsies, transurethral resection of bladder tumor. Location: [facility] HISTORY OF PRESENT ILLNESS Jonnathan is a [...] [facility]. [...] dysfunction. 6. Pulmonary symptomatology, [place] unclear, but probably some degree of COPD. 7. Status post [place] cataract surgery [place] the [place]. 8. Tonsillectomy. 9. Obstructive sleep apnea, prescribed [...] He doesn't smoke. 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 FAMILY HISTORY Mother had hypertension. [...] cancer. Will refer patient to uro-oncology at [facility] per his request. Referral is pending results from upcoming procedure. 3. Follow up. The patient will contact the clinic with any new or worsening symptoms. This document serves as a record of services personally performed by Piero Roy MD. It was created on their behalf by Lulu Roldan, a trained medical reimbursement manager. The creation of this record is based on the scribe's personal observations and the provider's statements to them. This document has been christie cked and approved by the attending provider. Peiro Hinton M.D./livia Electronically Signed By: PIERO WEISS MD On: 06/10/2016 09:24 AM Source: [facility] MHSDOLBEYNONRADSYS Document Id: [id number] documented in this encounter Miscellaneous Notes Miscellaneous - Kitty Bailey L.PMauroNMauro - 05/16/2016 10:29 AM CDT Adult Finger Lift Operator Intake/History Adult Finger Lift Operator Intake/History Entered On: 05/16/2016 10:30 CDT Performed [...] Information Given By : Patient Languages : Bolivian Is Patient Female and [...] BAILEY LPN - 05/16/2016 10:29 CDT Source: [facility] POWERCHART Document Id: [id number] CDT!40 Kitty Tang LMauroP.N. - 05/16/2016 10:28 [...] BAILEY LPN - 05/16/2016 10:28 CDT Source: [employer] Document Id: [id number] CDT!5 Kitty Tang L.P.NMauro - 05/16/2016 10:27 AM CDT Adult Finger Lift Operator Intake/History Adult Finger Lift Operator Intake/History Entered On: 05/16/2016 10:28 CDT Performed On: 05/16/2016 10:27 CDT by KITTY BAILEY LPN Intake Chief Complaint : pre op KITTY BAILEY LPN - 05/16/2016 10:27 CDT General Info Information Given By : Patient Languages : Bolivian Is Patient Female and [...] Grid Drug Use : None KITTY BAILEY INFORMATION ASSURANCE ANALYST - 05/16/2016 10:27 CDT Source: [facility] POWERCHART Document Id: [id number] CDT!25 documented in this encounter Plan of [...] / Volume Laterality 05/16/2016 10:16 AM CDT [facility] - 05/16/2016 10:16 AM CDT Test [...] City/State/ZIP Code Phon e Number [facility] [address] [place] [id number] DX Chest Anterior Posterior or Posterior Anterior [...]
--- OUTSIDE RECORDS SUMMARY | 2022-05-27 12:13 | XMS_ITS | Encounter Summary ---
:1945 Author Organization [facility] Address [address] [place] [address] Care Team Providers Name Role Phone Unavailable Primary Care Provider Unavailable Encounter Details Date Type Department Care Team Description 11/23/2015 Hospital Encounter HX [facility] NEUROLOGY Mari Lala M.D., M.P.H. [address] [place] [address] (Wo rk) Social History Tobacco [...] do you attend spiritism or Never 2021 restorationist services? Do you [...] Comments Blood Pressure 138/70 11/23/2015 2:15 PM ANTHROPOLOGIST Pulse 72 11/23/2015 2:15 PM ANTHROPOLOGIST Temperature - - Respiratory Rate - - Oxygen Saturation - - Inhaled Oxygen Concentration - - Weight 112 kg (245 lb 13 oz) 11/23/2015 2:15 PM ANTHROPOLOGIST Height - - Body Mass Index 30.56 [...] M.D., M.P.H. - 11/23/2015 1:14 PM CST [id number] CHIEF COMPLAINT/REASON FOR VISIT Stroke. HISTORY OF [...] MD MPH On: 11/24/2015 04:22 PM [facility] Document Id: [id number] ROPOLOGIST documented in this encounter Miscellaneous Notes Miscellaneous - Francisca Lala M.D., M.P.H. - 11/29/2015 8:34 AM CST RE: *The Coding Query From: FRANCISCA LALA MD MPH To: LAUREL RIOS; Sent: 11/29/2015 08:34:59 ANTHROPOLOGIST Subject: RE: *The Coding Query Done, thanks and sorry From: LAUREL RIOS To: FRANCISCA LALA MD MPH; Sent: 11/28/2015 14:08:48 ANTHROPOLOGIST Subject: *The Coding Query Hello, Missing OV charges for the patient above. DOS: 11/23/2015 Please make sure to Uncheck the box, Save To Chart, so that this message is not saved into the patients chart when replying. Thank you, aLurel Rios, [facility], CMRS Revenue Recognition-Coding Source: [facility] [employer]PaxCHART Document Id: [id number] Electronically signed by Karen [facility] Data Examination Clerk [id number] at 02/22/2017 8:50 AM CDT Miscellaneous - Natalee Plunkett, L.P.N. - 11/23/2015 2:15 PM CST Adult Cap And Stud Machine Operator Intake/History Adult Cap And Stud Machine Operator Intake/History Entered On: 11/23/2015 14:21 ANTHROPOLOGIST Performed On: 11/23/2015 14:15 ANTHROPOLOGIST by NATALEE PLUNKETT LPN Intake Chief Complaint [...] kg NATALEE PLUNKETT LPN - 11/23/2015 14:15 ANTHROPOLOGIST General Info Information Given By : Patient, Spouse, Other: 's name is Diallo Languages : Armenian Is Patient Female and 13-50 no hysterectomy : No NATALEE PLUNKETT LPN - 11/23/2015 14:15 ANTHROPOLOGIST Subjective Pain Symptoms : No NATALEE PLUNKETT LPN - 11/23/2015 14:15 ANTHROPOLOGIST Dependent Habits Exposure to Tobacco Smoke : Other: quit 40 years ago Smoking Status : Former smoker Tobacco 2A : Yes Tobacco Use/Currently Using : No Tobacco Use/Last 30 Days : No Tobacco Use/Last 12 months : No NATALEE PLUNKETT LPN - 11/23/2015 14:15 ANTHROPOLOGIST Caffeine Use Grid Caffeine Use : Current Type : Coffee Frequency : Daily NATALEE PLUNKETT LPN - 11/23/2015 14:15 ANTHROPOLOGIST Recreational Drug Use Grid Drug Use : None NATALEE PLUNKETT LPN - 11/23/2015 14:15 ANTHROPOLOGIST [facility] Document Id: [id number] ANTHROPOLOGIST!33 ROPOLOGIST documented in this encounter Plan of Treatment Not on filedocumented as of this encounter Visit Diagnoses Not on filedocumented in this encounter Additional Health Concerns Assessment Noted Time PHQ-9 Depression Total Score: 6 01/31/2015 12:28 PM CD T documented as of this encounter
--- OUTSIDE RECORDS SUMMARY | 2022-05-27 12:13 | XMS_ITS | Encounter Summary ---
:1945 Author Organization [facility] Address [address] [place] [address] Care Team Providers Name Role Phone Unavailable Primary Care Provider Unavailable Encounter Details Date Type Department Care Team Description 11/22/2015 [facility] Ewa Marte M.D. [address] [place], [place] [phone] (Wo rk) Social [...] do you attend catholic or Never 2021 anglican services? Do you [...]
--- OUTSIDE RECORDS SUMMARY | 2022-05-27 12:13 | XMS_ITS | Encounter Summary ---
:1945 Author Organization [facility] Address [address] [place] [address] Care Team Providers Name Role Phone Unavailable Primary Care Provider Unavailable Encounter Details Date Type Department Care Team Description 05/08/2016 Hospital Encounter HX [facility] FAMILY[facility] Piero Moya i, M.D. [address] [place] [address] (Wo rk) Social History Tobacco [...] do you attend mandaen or Never 2021 methodist services? Do you [...] Weiss M.D. - 05/08/2016 12:42 PM CDT [id number] CHIEF COMPLAINT/ REASON FOR VISIT Follow up [...] kidney function improved. He is also on jail anticoagulation. His CT did show marked prostate [...] numerous inhalers and the doctor at the [facility] suggested using Prednisone. He was exposure to Agent Albert Lea while in the service. He states that [...] dysfunction. 6. Pulmonary symptomatology, diagnosis at the [facility] unclear, but probably some degree of COPD. 7. Status post left cataract surgery at the [facility]. 8. Tonsillectomy. 9. AGNIESZKA, prescribed CPAP therapy [...] behalf by Karen Givens, a trained biomedical service engineer. The creation of this record is based on the scribe's personal observations and the provider's statements to them. This document has been ch ecked and approved by the attending provider. Piero Hinton M.D./ Electronically Signed By: PIERO WEISS MD On: 05/11/2016 12:01 PM Source: [facility] MHSDOLBEYNONRADSYS Document Id: [id number] documented in this encounter Miscellaneous Notes Miscellaneous - Piero Weiss M.D. - 05/11/2016 11:44 AM CDT Ambulatory Patient Summary [address] [id number] Visit Information Name: JONNATHAN COSTA [facility] Number: [id number] Current Date: 05/11/2016 11:44:18 Physicians [...] Appointments Date Time Location Provider 05/13/2016 14:30 [facility] Prasanna Luevano MD Attention: Contact your [...] if you dont have one. Go to [email or web address] and click on Create Your Account. Then, follow the directions to complete the online form. Youll be asked for your [facility] number which you can find at the top of this document. Your Goals/Additional instructions: Source: [facility] POWERCHART Document Id: [id number] Miscellaneous - Piero Weiss M.D. - 05/11/2016 11:44 AM CDT Ambulatory Discharge Medication List [address] [id number] Visit Information Name: JONNATHAN COSTA [facility] Number: [id number] Visit Date: 05/11/2016 11:44:16 Attending [...] MD Signed On:11-MAY-2016 11:44:12 Additional Information: Source: [facility] POWERCHART Document Id: [id number] Miscellaneous - Marti Hamilton, L.P.N. - 05/08/2016 [...] Soft drinks Frequency : Daily MARTI HAMILTON GENETIC TECHNOLOGIST - 05/08/2016 13:03 CDT Recreational Drug Use Grid Drug Use : None MARTI HAMILTON LPN - 05/08/2016 13:03 CDT AUDIT Tool How Often Do You Have A Drink : Monthly or less How Many Drinks in a Day When Drinking : 1 or 2 Six or More Drinks On One Occassion : Never Audit Phase 1 Score : 1 MARTI HAMILTON GENETIC TECHNOLOGIST - 05/08/2016 13:03 CDT Psychosocial Domestic Abuse Concerns : None Behavioral Health Screen/Safety Assmt : No Confucianism Preference : Unknown MARTI HAMILTON GENETIC TECHNOLOGIST - 05/08/2016 13:03 CDT Advance Directive Advanced Directives : No Advance Directive Additional Information : No MARTI HAMILTON GENETIC TECHNOLOGIST - 05/08/2016 13:03 CDT Educ Needs Learning Style Preference Adult Grid Patient : Demonstration, Printed materials, Verbal explanation Family : Demonstration, Printed materials, Verbal explanation MARTI HAMILTON LPN - 05/08/2016 13:03 CDT Source: [employer] Document Id: [id number] CDT!47 Miscellaneous - Marti Hamilton, L.P.N. - 05/08/2016 1:00 PM CDT Adult Candlemaker Intake/History Adult Candlemaker Intake/History Entered On: 05/08/2016 13:03 CDT Performed On: 05/08/2016 13:00 CDT by MARTI HAMILTON GENETIC TECHNOLOGIST Intake Chief Complaint : review test results [...] Preferred Communication Mode : Verbal Languages : Djiboutian Is Patient Female and 13-50 no hysterectomy : No MARTI HAMILTON [facility] - 05/08/2016 13:00 CDT Subjective Pain Symptoms : No MARTI HAMILTON GENETIC TECHNOLOGIST - 05/08/2016 13:00 CDT Dependent Habits Exposure to Tobacco Smoke : Other: quit in 1982 Smoking Status : Former smoker Tobacco 2A : Yes Tobacco Use/Currently Using : No Tobacco Use/Last 30 Days : No Tobacco Use/Last 12 months : No Tobacco Last Use/Year : 1982 MARTI HAMILTON [facility] - 05/08/2016 13:00 CDT Caffeine Use Grid Caffeine Use : Current Type : Coffee Frequency : Daily MARTI HAMILTON [facility] - 05/08/2016 13:00 CDT Recreational Drug Use Grid Drug Use : None MARTI HAMILTON LPN - 05/08/2016 13:00 CDT Source: [employer] Document Id: [id number] CDT!41 documented in this encounter Plan of Treatment Not on filedocumented as of this encounter Visit Diagnoses Not on filedocumented in this encounter Additional Health Concerns Assessment Noted Time PHQ-9 Depression Total Score: 6 01/31/2015 12:28 PM CD T documented as of this encounter
--- OUTSIDE RECORDS SUMMARY | 2022-05-27 12:13 | XMS_ITS | Encounter Summary ---
:1945 Author Organization [facility] Address [address] [place] [address] Care Team Providers Name Role Phone Unavailable Primary Care Provider Unavailable Encounter Details Date Type Department Care Team Description 05/03/2016 Hospital Encounter HX [facility] LAB Piero Grier M.D. [address] [place], [place] [phone] (Wo rk) Social History [...] do you attend advent or Never 2021 denominational services? Do you [...] report from 8-5 is poor quality. Source: [employer] Document Id: [id number] Electronically signed by Conversion, [facility] Psychiatric Aide Instructor [id number] at 02/23/2017 3:20 AM CDT documented in [...] MGDL HXeGFR (MDRD) 43 (L) >=60 POWERCHART [id number] eGFR 52 (L) >=60 POWERCHART Black/ [id number] Libyan Specimen (Source) Anatomical Collection Method Collection Time [...]
--- OUTSIDE RECORDS SUMMARY | 2022-05-27 12:13 | XMS_ITS | Encounter Summary ---
:1945 Author Organization [facility] Address [address] [place] [address] Care Team Providers Name Role Phone Unavailable Primary Care Provider Unavailable Encounter Details Date Type Department Care Team Description 04/21/2015 Hospital Encounter HX [facility] FB FAMILYPRA Piero Moya i, M.D. [address] [place] [address] (Wo rk) Social History Tobacco [...] do you attend baptism or Never 2021 gnosticist services? Do you [...] Weiss M.D. - 04/21/2015 9:41 AM CDT [id number] CHIEF COMPLAINT/ REASON FOR VISIT Medication check. [...] surgery at the [facility]. 8. Tonsillectomy. 9. AGNIESZKA, prescribed CPAP therapy [...] behalf by Lulu Roldan, a trained medical artist. The creation of this record is based on the scribe's personal observations and the provider's statements to them. This document has been christie cked and approved by the attending provider. Piero Hinton M.D./livia Electronically Signed By: PIERO WEISS MD On: 06/19/2015 10:56 AM Source: [facility] MHSDOLBEYNONRADSYS Document Id: [id number] documented in this encounter Nursing Notes Natalee Plunkett, L.P.N. - 10/20/2015 4:00 PM CST Panel management call Attempted to contact patient in regards to being due for AIC. According to letter sent on 05/28/15 patient can have repeat lipids in 6 months. Unable to leave message . Mail box is full. Electronically Signed By: NATALEE PLUNKETT LPN On: 10/20/2015 04:02 PM Source: [facility] POWERCHART Document Id: [id number] GENCY DEPARTMENT RN documented in this encounter Miscellaneous Notes Miscellaneous - Lucila Blevins - 10/12/2015 1:17 PM CST Quality Measures Quality Measures Entered On: 10/17/2015 13:17 EMERGENCY DEPARTMENT RN Performed On: 10/12/2015 13:17 EMERGENCY DEPARTMENT RN by LUCILA BLEVINS LPN Diabetes Date of Last Eye Exam : 10/12/2015 EMERGENCY DEPARTMENT RN LUCILA BLEVINS LPN - 10/17/2015 13:17 EMERGENCY DEPARTMENT RN [facility] Document Id: [id number] EMERGENCY DEPARTMENT RN!3 GENCY DEPARTMENT RN Miscellaneous - Ofelia Stafford RJustina - 04/21/2015 9:45 AM CDT Adult Spraying Machine Operator Intake/History Adult Spraying Machine Operator Intake/History Entered On: 04/21/2015 9:47 CDT Performed [...] 04/21/2015 9:45 CDT General Info Languages : Frisian Is Patient Female and 13-50 no hysterectomy [...] Drug Use Grid Drug Use : None OFLEIA TURNER 04/21/2015 9:45 CDT Source: [facility] POWERCHART Document Id: [id number] CDT!31 documented in this encounter Plan of Treatment Not on filedocumented as of this encounter Visit Diagnoses Not on filedocumented in this encounter Additional Health Concerns Assessment Noted Time PHQ-9 Depression Total Score: 6 01/31/2015 12:28 PM CD T documented as of this encounter
--- OUTSIDE RECORDS SUMMARY | 2022-05-27 12:13 | XMS_ITS | Encounter Summary ---
:1945 Author Organization [facility] Address [address] [place] [address] Care Team Providers Name Role Phone Unavailable Primary Care Provider Unavailable Encounter Details Date Type Department Care Team Description 04/29/2016 Hospital Encounter HX [facility] FBHB LAB Piero Grier M.D. [address] [place], [place] [phone] (Wo rk) Social History [...] been established. Patient was encouraged to contact [facility] radiology scheduling tomorrow to schedule CT Urogram ordered by Dr. Roy. Source: [facility] Document Id: [id number] Miscellaneous - Prudence Peralta L.P.N. - 05/01/2016 5:17 PM CDT *General Message From: PRUDENCE PERALTA LPN ( Urology Nurse) Sent: 05/01/2016 17:17:51 CDT Subject: *General Message Referral request recieved by [facility] to schedule patient with Dr. Luevano for evaluation of hematuria. Phone conversation with Marti nurse for Dr. Lawson . Marti will check if orders sent to [facility] for CT urogram and if patient has had creatinine completed. Marti notified that patient can be scheduled for Urology evaluation as soon as imaging is completed if Urology is notifiesd when Ct will be completed. Source: [facility] Document Id: [id number] Piero Otoole M.D. - 04/30/2016 10:25 PM [...] Has the CT urogram been scheduled? Source: [facility] POWERCHART Document Id: [id number] Electronically signed by Karen [facility] Networks[facility]ita Mascara Molder [id number] at 02/23/2017 3:20 AM CDT Miscellaneous - [...] to the urine done this morning. Source: [facility] POWERCHART Document Id: [id number] Electronically signed by Conversion, [facility] Mascara Molder [id number] at 02/23/2017 3:20 AM CDT documented in this encounter Plan of Treatment Not on filedocumented as of this encounter Procedures Procedure Name Priority Date/Time Associated Comments Diagnosis ZZPATHOLOGY NON-PAPER TWISTER Routine 04/29/2016 8:58 AM Re sults for [...] section. documented in this encounter Results ZZPATHOLOGY NON-PAPER TWISTER CYTOLOGY (04/29/2016 8:58 AM CDT) Specimen (Source) Anatomical Collection Method Collection Time Re ceived Time Location / / Volume Laterality 04/29/2016 8:58 AM CDT Narrative [facility] LAB - 04/30/2016 11:14 AM CDT [facility] [address] [place] [address] ??[phone] Patient Name: JONNATHAN COSTA Patient ID #: [id number] Collected: 04/29/2016 Address: [facility]/State/Zip: [address] [place], [place] ??[id number] Received: Reported: 04/30/2016 04/30/2016 Soc. Sec. #: ?/Age/Sex 1 (Age: 70) ??M Physician(s): IRENA HERNANDEZ MD Copy To: ? [facility] ??[phone] [facility], ??[place] ??[address] CYTOPATHOLOGY NON-PAPER TWISTER REPORT FINAL CYTOLOGIC DIAGNOSIS Urine-VOIDED: DIAGNOSIS ATYPICAL UROTHELIAL CELLS CONSISTENT WIT H INFLAMMATION, CALCULUS, RECENT INSTRUMENTATION OR LOW GRADE PAPILLARY LESION. SATISFACTORY SPECIMEN FOR EVALUATION. Electronically Signed By [facility]/04/30/2016 JOVANNY LACY M.D. [facility](ASCP) SPECIMEN(S) RECEIVED: Urine-VOIDED CLINICAL HISTORY: GROSS HEMATURIA GROSS DESCRIPTION: 2 CYTOSPINS PREPARED FROM 10 ML OF CLOUD Y PALE YELLOW FLUID. Piero Alejandro M.D. LAB PATHOLOGY/CYTOLOGY ORDERABLES Performing Organization Address City/[facility]/ZIP Code Phon e Number [facility] HXUR % DYSMORPHIC RBC (04/29/2016 8:46 AM CDT) P athologist Signature Dysmorphic RBC <=25 <=25 POWERCHART Specimen Anatomical Collection Method Collection Time Receive d Time (Source) Location / / Volume Laterality Urine, First 04/29/2016 8:46 AM 6 8:46 Voided CDT AM CDT Piero Alejandro M.D. LAB HISTORICAL ORDERS Performing Organization Address City/[facility] Code Phon e Number POWERCHART (ABNORMAL) Urinalysis, Complete, Includes Microscopic (04/29/2016 8:46 AM CDT) Patholo gist Method Time Signature Clarity Clear Clear POWERCHART HXUr Color Yellow Colorless POWERCHART Specific 1.020 POWERCHART [place], POCT, U pH, POCT, Urine 5.5 <5.0 [...] M.D. LAB URINE ORDERABLES Performing Organization Address City/[facility]/ZIP Code Phon e Number POWERCHART Bacterial [...]
--- OUTSIDE RECORDS SUMMARY | 2022-05-27 12:13 | XMS_ITS | Encounter Summary ---
:1945 Author Organization [facility] Address [address] [place] [address] Care Team Providers Name Role Phone Unavailable Primary Care Provider Unavailable Encounter Details Date Type Department Care Team Description 04/11/2015 Hospital Encounter HX [facility] FB FAMILYPRA Piero Moya i, M.D. [address] [place] [phone] (Wo rk) Social History Tobacco [...] do you attend congregational or Never 2021 holiness services? Do you [...] Weiss M.D. - 04/11/2015 1:59 PM CDT [id number] CHIEF COMPLAINT/ REASON FOR VISIT Review lab results and discuss seeing an director museum or zoo. HISTORY OF PRESENT ILLNESS Beth is a 69 year old male who presents to the clinic today to discuss his lab results and discuss seeing an director museum or zoo. He has had diabetes for 25 years [...] behalf by Karen Jones, a trained medical record transcriber. The creation of this record is based on the scribe's personal observations and the provider's statements to them. This document has been checked and approved by the attending provider. Piero Hinton M.D./ Electronically Signed By: PIERO WEISS MD On: 06/19/2015 10:16 AM Source: [facility] MHSDOLBEYNONRADSYS Document Id: [id number] documented in this encounter Miscellaneous Notes Telephone [...] to stop them. As today at the portable pinch riveter appt he was told something different about [...] back cell phone number ( ) Source: [facility] POWERCHART Document Id: [id number] Electronically signed by Karen [facility] Networksarita Beam Department Supervisor [id number] at 02/23/2017 6:30 PM CDT Miscellaneous - Piero Weiss M.D. - 04/11/2015 6:16 PM CDT Ambulatory Patient Summary [address] [id number] Visit Information Name: BETH COSTA [facility] Number: [id number] Current Date: 04/11/2015 18:16:46 Physicians [...] nasal (fluticasone 50 mcg/inh nasal spray) 2 Wallace(s), Nostrils(Both), once a day gemfibrozil (gemfibrozil 600 [...] Appointments Date Time Location Provider 04/19/2015 11:30 [facility] Sabine Landis CNP Attention: Contact your local [...] if you dont have one. Go to [email or web address] and click on Create Your Account. Then, follow the directions to complete the online form. Youll be asked for your [facility] number which you can find at the top of this document. Your Goals/Additional instructions: Source: [facility] POWERCHART Document Id: [id number] Miscellaneous - Piero Weiss M.D. - 04/11/2015 6:16 PM CDT Ambulatory Discharge Medication List [address] [id number] Visit Information Name: BETH COSTA [facility] Number: [id number] Visit Date: 04/11/2015 18:16:45 Attending [...] nasal (fluticasone 50 mcg/inh nasal spray) 2 Wallace(s), Nostrils(Both), once a day gemfibrozil (gemfibrozil 600 [...] MD Signed On:11-APR-2015 18:16:38 Additional Information: Source: [facility] POWERCHART Document Id: [id number] Miscellaneous - Justina Lobato, LMauroP.N. - 04/11/2015 [...] CROWLEY LPN - 04/11/2015 14:09 CDT Source: [facility] POWERCHART Document Id: [id number] CDT!7 Miscellaneous - Justina Lobato L.P.N. - 04/11/2015 2:06 PM CDT Adult Supervisor Pipeline Maintenance Intake/History Adult Supervisor Pipeline Maintenance Intake/History Entered On: 04/11/2015 14:08 CDT Performed On: 04/11/2015 14:06 CDT by JUSTINA LOBATO LPN Intake Chief Complaint : 1. Discuss test results 2. Discuss seeing an director museum or zoo Peripheral Pulse Rate : 80 /min Respiratory [...] Communication Mode : Verbal, Written Languages : Argentine Is Patient Female and 13-50 no hysterectomy [...] LOBATO LPN - 04/11/2015 14:06 CDT Source: [facility] POWERCHART Document Id: [id number] CDT!36 documented in this encounter Plan of Treatment Not on filedocumented as of this encounter Visit Diagnoses Not on filedocumented in this encounter Additional Health Concerns Assessment Noted Time PHQ-9 Depression Total Score: 6 01/31/2015 12:28 PM CD T documented as of this encounter
--- OUTSIDE RECORDS SUMMARY | 2022-05-27 12:13 | XMS_ITS | Encounter Summary ---
:1945 Author Organization [facility] Address [address] [place] [address] Care Team Providers Name Role Phone Unavailable Primary Care Provider Unavailable Encounter Details Date Type Department Care Team Description 05/25/[address] [facility] FB LAB Piero Grier M.D. [address] [place], [place] [phone] (Wo rk) Social History [...] do you attend yarsanism or Never 2021 baptism services? Do you [...] Result Letter 28 May 2015 JONNATHAN COSTA [id number] [facility] [place] [id number] Dear JONNATHAN COSTA, Your cholesterol is better [...] performed 04/06/2015 Sincerely, PIERO HERNANDEZ [address] [facility] [place] [address] Electronic Signature Electronically Signed By: PIERO WEISS MD On: 28 May 2015 This document has images extracted. Source: [facility] POWERCHART Document Id: [id number] Electronically signed by Karen, [facility] Street Light Cleaner [id number] at 02/24/2017 2:58 AM CDT documented in this encounter Plan [...] for FH and FDB is available throu [facility] Laboratories: FH/ADH Genetic Reflex Saleh el (test ADHP). Acquired (non-genetic) causes of markedly increased LDL cholesterol include cholestatic liver disease due to the presence of LpX. If a genetic form of hypercholesterolemia is suspected, family studies including biochemical testing fo r lipids (total cholesterol,triglycerides, LDL cholesterol and HDL cholesterol) are recommended. ??Please contact the laboratory at or the on-line test catalog at [employer] for information about how to order [...] AST (Aspartate Aminotransferase) (05/25/2015 6:57 AM CDT) [facility] Method Time Signature Aspartate 21 8 - 48 POWERCHART Aminotransferase UNITL (AST), S Specimen (Source) Anatomical Collection Method Collection Time Re ceived Time Location / / Volume Laterality Blood 05/25/2015 6:57 AM CDT Piero Alejandro M.D. LAB BLOOD ADD-ON Performing Organization Address City/State/ZIP Code Phon e Number POWERCHART (ABNORMAL) Lipid Panel (05/25/2015 6:57 AM CDT) [facility] Method Time Signature Calculated LDL Test Not [...]
--- OUTSIDE RECORDS SUMMARY | 2022-05-27 12:13 | XMS_ITS | Encounter Summary ---
:1945 Author Organization [facility] Address [address] [place] [address] Care Team Providers Name Role Phone Unavailable Primary Care Provider Unavailable Encounter Details Date Type Department Care Team Description 08/02/2015 [facility] Ewa Grier M.D. [address] [place], [place] [phone] (Wo rk) Social History [...] do you attend buddhist or Never 2021 church services? Do you [...] 08/02/2015 7:28 Results fo r this AM BOX CLOSING MACHINE OPERATOR procedure are i n the results section. ASPARTATE Routine 08/02/2015 7:28 Results for this AMINOTRANSFERASE (AST), AM BOX CLOSING MACHINE OPERATOR proc edure are in S/P the results section. LDL CHOLESTEROL Routine 08/02/2015 7:28 Results f or this (BETA-QUANTIFICATION), S AM BOX CLOSING MACHINE OPERATOR pro cedure are in the results section. documented in this encounter Results (ABNORMAL) LDL Cholesterol (Beta-Quantification) (08/02/2015 7:28 AM BOX CLOSING MACHINE OPERATOR) P athologist Signature Direct LDL 143 (H) [...] for FH and FDB is available maeganu [facility]: FH/ADH Genetic Reflex Saleh el (test ADHP). Acquired (non-genetic) causes of markedly increased LDL cholesterol include cholestatic liver disease due to the presence of LpX. If a genetic form of hypercholesterolemia is suspected, family studies including biochemical testing fo r lipids (total cholesterol,triglycerides, LDL cholesterol and HDL cholesterol) are recommended. ??Please contact the laboratory at or the on-line test catalog at [employer] for information about how to order these more ts or to speak with a genetic counselor. Further interpretation would require clinical information. Specimen Anatomical Collection Method Collection Time Receive d Time (Source) Location / / Volume Laterality Blood 08/02/2015 7:28 AM 5 7:28 BOX CLOSING MACHINE OPERATOR AM BOX CLOSING MACHINE OPERATOR Ewa Alejandro M.D. LAB BLOOD ADD-ON Performing Organization Address City/State/ZIP Code Phon e Number POWERCHART AST (Aspartate Aminotransferase) (08/02/2015 7:28 AM BOX CLOSING MACHINE OPERATOR) TRA Method Time Signature Aspartate 23 8 - 48 POWERCHART Aminotransferase UNITL (AST), S Specimen (Source) Anatomical Collection Method Collection Time Re ceived Time Location / / Volume Laterality Blood 08/02/2015 7:28 AM BOX CLOSING MACHINE OPERATOR Ewa Alejandro M.D. LAB BLOOD ADD-ON Performing Organization Address City/State/ZIP Code Phon e Number POWERCHART (ABNORMAL) Lipid Panel (08/02/2015 7:28 AM BOX CLOSING MACHINE OPERATOR) TRA Method Time Signature Calculated LDL Test Not [...] / Volume Laterality Blood 08/02/2015 7:28 AM BOX CLOSING MACHINE OPERATOR Ewa Alejandro M.D. LAB BLOOD ADD-ON Performing Organization Address City/State/ZIP Code Phon e Number POWERCHART documented in this encounter Visit Diagnoses Not on filedocumented in this encounter Additional Health Concerns Assessment Noted Time PHQ-9 Depression Total Score: 6 01/31/2015 12:28 PM CD T documented as of this encounter
--- OUTSIDE RECORDS SUMMARY | 2022-05-27 12:13 | XMS_ITS | Encounter Summary ---
:1945 Author Organization [facility] Address [address] [place] [address] Care Team Providers Name Role Phone Unavailable Primary Care Provider Unavailable Encounter Details Date Type Department Care Team Description 08/02/2015 Hospital [facility] Ewa Grier M.D. [address] [place], [place] [phone] (Wo rk) Social History [...] do you attend catholic or Never 2021 yazidi services? Do you [...] 7:28 AM Re sults for this HORMONE-SENSITIVE TELECOMMUNICATIONS SALES REPRESENTATIVE procedure are in (S-TSH) the results section. documented in this encounter Results (ABNORMAL) Thyroid-Stimulating Hormone-Sensitive (s-TSH) (08/02/2015 7:28 AM TELECOMMUNICATIONS SALES REPRESENTATIVE) P athologist Signature TSH 4.43 (H) 0.27 - POWERCHART (Thyrotropin) 4.20 MIUL Specimen (Source) Anatomical Collection Method Collection Time Re ceived Time Location / / Volume Laterality Blood 08/02/2015 7:28 AM TELECOMMUNICATIONS SALES REPRESENTATIVE Ewa Alejandro M.D. LAB BLOOD ADD-ON Performing Organization Address City/State/ZIP Code Phon e Number POWERCHART documented in this encounter Visit Diagnoses Not on filedocumented in this encounter Additional Health Concerns Assessment Noted Time PHQ-9 Depression Total Score: 6 01/31/2015 12:28 PM CD T documented as of this encounter
--- OUTSIDE RECORDS SUMMARY | 2022-05-27 12:13 | XMS_ITS | Encounter Summary ---
:1945 Author Organization [facility] Address [address] [place] [address] Care Team Providers Name Role Phone Unavailable Primary Care Provider Unavailable Encounter Details Date Type Department Care Team Description 11/21/2015 Hospital Encounter HX [facility] Piero Moya i, M.D. [address] [place] [phone] (Wo rk) Social History Tobacco [...] do you attend latter-day or Never 2021 quaker services? Do you [...] Comments Blood Pressure 132/70 11/21/2015 3:48 PM TIN TIE MACHINE OPERATOR AUTOMATIC Pulse 72 11/21/2015 3:48 PM TIN TIE MACHINE OPERATOR AUTOMATIC Temperature - - Respiratory Rate - - Oxygen Saturation - - Inhaled Oxygen Concentration - - Weight 112 kg (247 lb 5.7 oz) 11/21/2015 3:48 PM TIN TIE MACHINE OPERATOR AUTOMATIC Height - - Body Mass Index 30.76 [...] Weiss M.D. - 11/21/2015 3:43 PM CST [id number] REVISON HISTORY November 24, 2015 at 3:55 [...] WEISS MD On: 11/29/2015 12:00 AM Source: [facility] MHSDOLBEYNONRADSYS Document Id: [id number] TIE MACHINE OPERATOR AUTOMATIC documented in this encounter Nursing Notes Kitty Bailey L.P.N. - 05/03/2016 1:24 PM CDT diagnostics notified [facility]/diagnostics that creatnin level from this mornings draw was 1.6 again and verified that they were aware that low dose contrast dye was going to be used Electronically Signed By: KITTY BAILEY LPN On: 05/03/2016 01:27 PM Source: [facility] POWERCHART Document Id: [id number] documented in this encounter Miscellaneous Notes Telephone Encounter - Kitty Bailey L.PMauroNMauro - 05/02/2016 8:58 AM CDT *Phone Message Document Contains Addenda Addendum by KITTY BAILEY LPN on May 02, 2016 14:02:10 CDT From: KITTY BAILEY LPN ([facility] Nurse) To: PIERO WEISS MD; Sent: 05/02/2016 14:02:10 CDT Subject: FYI Addendum by KITTY BAILEY LPN on May 02, 2016 14:01:28 CDT notified Diallo/ the CT urogram is scheduled for 05/03 at [facility] with a 2:45 arrival and 3pm apptset. advised Beth to hydrate well today per Dr. WOO and redo labs Fri morning and again on Mon ... Addendum by KITTY BAILEY LPN on May 02, 2016 13:27:08 CDT From: KITTY BAILEY LPN ([facility] Nurse) To: PIERO WEISS MD; Sent: 05/02/2016 13:27:08 CDT Subject: FW: *Phone Message Addendum by DEONDREANDRIY on May 02, 2016 13:09:36 CDT Diallo () called - Beth's phone isn't working so they want you to call her phone regarding the CT scan order - [phone] Addendum by HUSEYIN GASPAR LPN on May 02, 2016 11:27:03 CDT From: HUSEYIN GASPAR LPN [facility]: [facility]; Sent: 05/02/2016 11:27:03 CDT Subject: RE: *Phone Message Per Dr.Alex Bernal. Patient should be notified to hydrate well and then recheck creatinine. From: KITTY BAILEY LPN ([facility] Nurse) To: HUSEYIN GASPAR LPN; Sent: [...] back cell phone number ( ) Source: [facility] POWERCHART Document Id: [id number] Electronically signed by Conversion, [facility] Plant Anatomist [id number] at 02/22/2017 8:50 AM CDT Miscellaneous - Piero Weiss M.D. - 11/22/2015 11:43 PM TIN TIE MACHINE OPERATOR AUTOMATIC Ambulatory Patient Summary [address] [id number] Visit Information Name: BETH COSTA [facility] Number: [id number] Current Date: 11/22/2015 23:43:30 Physicians [...] if you dont have one. Go to [email or web address] and click on Create Your Account. Then, follow the directions to complete the online form. Youll be asked for your [facility] number which you can find at the top of this document. Your Goals/Additional instructions: Source: [facility] POWERCHART Document Id: [id number] TIE MACHINE OPERATOR AUTOMATIC Miscellaneous - Piero Weiss M.D. - 11/22/2015 11:43 PM TIN TIE MACHINE OPERATOR AUTOMATIC Ambulatory Discharge Medication List [address] [id number] Visit Information Name: BETH COSTA [facility] Number: [id number] Visit Date: 11/22/2015 23:43:29 Attending [...] MD Signed On:22-NOV-2015 23:43:20 Additional Information: [facility] Document Id: [id number] TIE MACHINE OPERATOR AUTOMATIC Miscellaneous - Steffany Ruelas L.P.N. - 11/21/2015 3:48 PM CST Adult Operations Specialists Intake/History Adult Operations Specialists Intake/History Entered On: 11/21/2015 15:51 TIN TIE MACHINE OPERATOR AUTOMATIC Performed On: 11/21/2015 15:48 TIN TIE MACHINE OPERATOR AUTOMATIC by STEFFANY RUELAS LPN Intake Chief Complaint [...] kg STEFFANY RUELAS LPN - 11/21/2015 15:48 TIN TIE MACHINE OPERATOR AUTOMATIC General Info Information Given By : Patient Preferred Communication Mode : Verbal Languages : South Sudanese Is Patient Female and 13-50 no hysterectomy : No STEFFANY RUELAS LPN - 11/21/2015 15:48 TIN TIE MACHINE OPERATOR AUTOMATIC Subjective Pain Symptoms : No STEFFANY RUELAS LPN - 11/21/2015 15:48 TIN TIE MACHINE OPERATOR AUTOMATIC Dependent Habits Exposure to Tobacco Smoke : Other: quit 40 years ago Smoking Status : Former smoker Tobacco 2A : Yes Tobacco Use/Currently Using : No Tobacco Use/Last 30 Days : No Tobacco Use/Last 12 months : No STEFFANY RUELAS LPN - 11/21/2015 15:48 TIN TIE MACHINE OPERATOR AUTOMATIC Caffeine Use Grid Caffeine Use : Current Type : Coffee Frequency : Daily STEFFANY RUELAS LPN - 11/21/2015 15:48 TIN TIE MACHINE OPERATOR AUTOMATIC Recreational Drug Use Grid Drug Use : None STEFFANY RUELAS LPN - 11/21/2015 15:48 TIN TIE MACHINE OPERATOR AUTOMATIC Source: [facility] POWERCHART Document Id: [id number] TIN TIE MACHINE OPERATOR AUTOMATIC!35 TIE MACHINE OPERATOR AUTOMATIC documented in this encounter Plan of Treatment Not on filedocumented as of this encounter Visit Diagnoses Not on filedocumented in this encounter Additional Health Concerns Assessment Noted Time PHQ-9 Depression Total Score: 6 01/31/2015 12:28 PM CD T documented as of this encounter
--- OUTSIDE RECORDS SUMMARY | 2022-05-27 12:13 | XMS_ITS | Encounter Summary ---
:1945 Author Organization [facility] Address [address] [place] [address] Care Team Providers Name Role Phone Unavailable Primary Care Provider Unavailable Encounter Details Date Type Department Care Team Description 04/29/2016 Hospital Encounter HX NO MAPPING Ewa Alejandro M.D. [address] [place], [place] [phone] (Wo rk) Social History [...] do you attend quaker or Never 2021 amish services? Do you [...]
--- OUTSIDE RECORDS SUMMARY | 2022-05-27 12:13 | XMS_ITS | Encounter Summary ---
:1945 Author Organization [facility] Address [address] [place] [address] Care Team Providers Name Role Phone Unavailable Primary Care Provider Unavailable Encounter Details Date Type Department Care Team Description 05/02/2016 Hospital Encounter HX [facility] Mari Lala M.D., M.P.H. [address] [place] [phone] (Wo rk) Social History Tobacco [...] do you attend lutheran or Never 2021 confucianist services? Do you [...] M.D., M.P.H. - 05/02/2016 8:00 AM CDT [id number] CHIEF COMPLAINT/REASON FOR VISIT Disequilibrium. HISTORY OF [...] MD MPH On: 05/03/2016 03:33 PM Source: [facility] MHSDOLBEYNONRADSYS Document Id: [id number] documented in this encounter Nursing Notes Natalee [...] PLUNKETT LPN On: 04/05/2016 11:24 AM Source: [facility] POWERCHART Document Id: [id number] documented in this encounter Miscellaneous Notes Miscellaneous [...] well, then lab again on Friday Source: [facility] POWERCHART Document Id: [id number] Miscellaneous - Becky Banuelos L.P.NMauro - 05/02/2016 8:09 AM CDT Adult Potato Chip Sacking Machine Operator Intake/History Adult Potato Chip Sacking Machine Operator Intake/History Entered On: 05/02/2016 8:14 CDT [...] Information Given By : Patient Languages : South African Is Patient Female and 13-50 no [...] : Coffee Frequency : Daily BECKY BANUELOS TOXICOLOGIST - 05/02/2016 8:09 CDT Recreational Drug Use Grid Drug Use : None BECKY BANUELOS TOXICOLOGIST - 05/02/2016 8:09 CDT [facility] Document Id: [id number] CDT!34 Miscellaneous - Piero Weiss M.D. - 04/28/2016 10:53 PM CDT Jonnathan's called with concerns about gross hematuria. He is not having dysuria or any other symptoms. He will submit a urine sample for UA/UC. If negative he will need further work up. [facility] Document Id: [id number] documented in this encounter Plan of Treatment Not on filedocumented as of this encounter Visit Diagnoses Not on filedocumented in this encounter Additional Health Concerns Assessment Noted Time PHQ-9 Depression Total Score: 6 01/31/2015 12:28 PM CD T documented as of this encounter
--- OUTSIDE RECORDS SUMMARY | 2022-05-27 12:13 | XMS_ITS | Encounter Summary ---
:1945 Author Organization [facility] Address [address] [place] [address] Care Team Providers Name Role Phone Unavailable Primary Care Provider Unavailable Encounter Details Date Type Department Care Team Description 04/06/2015 Hospital Encounter HX [facility] FB [facility] Piero Grier M.D. [address] [place], [place] [phone] [...] fasting labs again in 6 weeks. Source: [facility] [employer] Document Id: [id number] Electronically signed by Conversion, [employer] Chief Substation Operator [id number] at 02/23/2017 6:30 PM CDT documented in [...] for FH and FDB is available throu [facility]: FH/ADH Genetic Reflex Saleh [...] at or the on-line test catalog at [employer] for information about how to order these [...] AST (Aspartate Aminotransferase) (04/06/2015 8:19 AM CDT) [facility] [employer] Method Time Signature Aspartate 20 8 - 48 POWERCHART Aminotransferase UNITL (AST), S Specimen (Source) Anatomical Collection Method Collection Time Re ceived Time Location / / Volume Laterality Blood 04/06/2015 8:19 AM CDT Piero Alejandro M.D. LAB BLOOD ADD-ON Performing Organization Address City/State/ZIP Code Phon e Number POWERCHART (ABNORMAL) Lipid Panel (04/06/2015 8:19 AM CDT) [facility] [employer] Method Time Signature Calculated LDL Test Not [...]
--- OUTSIDE RECORDS SUMMARY | 2022-05-27 12:13 | XMS_ITS | Encounter Summary ---
:1945 Author Organization [facility] Address [address] [place] [address] Care Team Providers Name Role Phone Unavailable Primary Care Provider Unavailable Encounter Details Date Type Department Care Team Description 04/29/2016 Hospital Encounter HX NO MAPPING Ewa Alejandro M.D. [address] [place], [place] [phone] (Wo rk) Social History [...] do you attend protestant or Never 2021 caodaism services? Do you [...] Coding Summary-Paper Based CODING DATE: 05/10/2016 FINAL [facility] STATUS: * Discharged to Home or Self [...] TREVIZO Date Saved: 05/10/2016 11:05 am Source: [employer] Document Id: [id number] documented in this encounter Plan of Treatment Not on filedocumented as of this encounter Visit Diagnoses Not on filedocumented in this encounter Additional Health Concerns Assessment Noted Time PHQ-9 Depression Total Score: 6 01/31/2015 12:28 PM CD T documented as of this encounter
--- OUTSIDE RECORDS SUMMARY | 2022-05-27 12:13 | XMS_ITS | Encounter Summary ---
:1945 Author Organization [facility] Address [address] [place] [address] Care Team Providers Name Role Phone Unavailable Primary Care Provider Unavailable Encounter Details Date Type Department Care Team Description 11/06/2015 Hospital Encounter HX [facility] FAMILYPRA Piero Moya i, M.D. [address] [place] [phone] (Wo rk) Social History Tobacco [...] do you attend religion or Never 2021 gnosticism services? Do you [...] Comments Blood Pressure 130/60 11/06/2015 11:31 AM AIDS NURSE Pulse 84 11/06/2015 11:31 AM AIDS NURSE Temperature - - Respiratory Rate 26 11/06/2015 11:31 AM AIDS NURSE Oxygen Saturation - - Inhaled Oxygen Concentration - - Weight 112 kg (246 lb 14.6 oz) 11/06/2015 11:31 AM AIDS NURSE Height - - Body Mass Index 30.7 [...] Rojas M.D. - 11/06/2015 10:44 AM CST [id number] CHIEF COMPLAINT/ REASON FOR VISIT Lightheadedness. HISTORY OF PRESENT ILLNESS Beth is a 70 year old female who presents to the clinic today for lightheadedness. Last week after walking the distance of a block he had difficulty stepping up into his tractor. He realized that he felt lightheaded and after waiting a bit and he was able to get up into the tractor. Bteh had anotherepisode last week where he felt [...] Status post left cataract [facility] the [facility]. 8. Tonsillectomy. 9. AGNIESZKA, prescribed CPAP therapy [...] including BMP and CBC. Stress test at [facility]. 2. Above symptoms could also be suggestive of cerebral vascular disease. Will obtain carotid ultrasound. 3. Follow up. The patient will contact the clinic with any new or worsening symptoms. This document serves as a record of services personally performed by Piero Roy MD. It was created on their behalf by Lulu Roldan, a trained medical secretary teacher. The creation of this record is based on the scribe's personal observations and the provider's statements to them. This document has been christie cked and approved by the attending provider. Piero Hinton M.D./livia Electronically Signed By: PIERO ROJAS MD On: 11/08/2015 10:06 PM Source: [facility] MHSDOLBEYNJESSIESYIhsan Document Id: [id number] NURSE documented in this encounter Miscellaneous Notes Miscellaneous - Piero Rojas M.D. - 11/20/2015 2:31 PM AIDS NURSE Addendum by JACQUIE SANCHEZ LPN on 20 November 2015 15:14:47 AIDS NURSE order and referal sent to [facility] and patient notified From: PIERO ROJAS MD To: LAWSON Roy Nurse; Sent: 11/20/2015 14:31:32 AIDS NURSE Beth needs an MRI brain and would like an order sent to [facility] in [place], [place]. Fax there is [phone] Please call Diallo to let her know the order has been faxed. Source: [facility] [employer] Document Id: [id number] Carencellaneous - Piero Rojas M.D. - 11/20/2015 2:29 PM AIDS NURSE MRI brain with contrast to evaluate possible TIA. Electronically Signed By: PIERO ROJAS MD On: 11/20/2015 02:29 PM Source: [facility] [employer] Document Id: [id number] NURSE Miscellaneous - Piero Rojas M.D. - 11/12/2015 4:45 PM AIDS NURSE Ambulatory Patient Summary [address] [id number] Visit Information Name: BETH DURAN [facility] Number: [id number] Current Date: 11/12/2015 16:45:14 Physicians [...] you dont have one. Go to [email or web address] and click on Create Your Account. Then, follow the directions to complete the online form. Youll be asked for your [facility] number which you can find at the top of this document. Your Goals/Additional instructions: Source: [facility] POWERCHART Document Id: [id number] NURSE Miscellaneous - Piero Rojas M.D. - 11/12/2015 4:45 PM AIDS NURSE Ambulatory Discharge Medication List [address] [id number] Visit Information Name: BETH DURAN [facility] Number: [id number] Visit Date: 11/12/2015 16:45:13 Attending [...] By: PIERO ROJAS MD Signed On:12-NOV-2015 16:45:07 Additional Information: Source: [facility] POWERCHART Document Id: [id number] NURSE Miscellaneous - Jacquie Sanchez, L.P.N. - 11/06/2015 11:31 AM CST Adult Assistant Professor Of Music Intake/History Adult Assistant Professor Of Music Intake/History Entered On: 11/06/2015 11:33 AIDS NURSE Performed On: 11/06/2015 11:31 AIDS NURSE by JACQUIE SANCHEZ [facility] Intake Chief Complaint : light headedness and [...] Weight Clinic : 112 kg JACQUIE SANCHEZ [facility] - 11/06/2015 11:31 AIDS NURSE General Info Information Given By : Patient Preferred Communication Mode : Verbal Languages : [place]er Is Patient Female and 13-50 no hysterectomy : No JACQUIE SANCHEZ [facility] - 11/06/2015 11:31 AIDS NURSE Subjective Pain Symptoms : No JACQUIE SANCHEZ [facility] - 11/06/2015 11:31 AIDS NURSE Dependent Habits Exposure to Tobacco Smoke : Other: quit 40 years ago Smoking Status : Former smoker Tobacco 2A : Yes Tobacco Use/Currently Using : No Tobacco Use/Last 30 Days : No Tobacco Use/Last 12 months : No JACQUIE SANCHEZ [facility] - 11/06/2015 11:31 AIDS NURSE Caffeine Use Grid Caffeine Use : Current Type : Coffee Frequency : Daily JACQUIE SANCHEZ LPN - 11/06/2015 11:31 AIDS NURSE Recreational Drug Use Grid Drug Use : None JACQUIE SANCHEZ [facility] - 11/06/2015 11:31 AIDS NURSE Source: [employer] Document Id: [id number] AIDS NURSE!36 NURSE documented in this encounter Plan of Treatment Not on filedocumented as of this encounter Procedures Procedure Name Priority Date/Time Associated Diagnosis Comme nts US CAROTID Routine 11/06/2015 1:29 PM Results f or this BILATERAL AIDS NURSE procedure are i n the results section. CBC WITHOUT Routine 11/06/2015 12:40 PM Results for this DIFFERENTIAL, B AIDS NURSE procedure ar e in the results section. BASIC METABOLIC Routine 11/06/2015 12:40 PM Resul ts for this PANEL, S/P AIDS NURSE procedure are i n the results section. DX CHEST AP OR PA Routine 11/06/2015 12:21 PM Res ults for this AND LATERAL 2 VIEWS AIDS NURSE procedur e are in the results section. documented in this encounter Results US Carotid Bilateral (11/06/2015 1:29 PM AIDS NURSE) Anatomical Region Laterality Modality Head and Neck Bilateral Ultrasound Specimen (Source) Anatomical Collection Method Collection Time Re ceived Time Location / / Volume Laterality 11/06/2015 1:29 PM AIDS NURSE Addenda Addendum by Provider, Pato Chase o theo 11/06/2015 1:29 PM AIDS NURSE RAD^^^OW US Carotid Duplex Bilat 11/06/2015 13:29:50 Narrative 11/06/2015 2:30 PM AIDS NURSE EXAM: US Carotid Duplex Bilat INDICATION: episodes [...] (ABNORMAL) CBC without Differential (11/06/2015 12:40 PM AIDS NURSE) Analysis Performed At Patho logist Time Signature Leukocytes 6.4 3.5 - 10.5 POWERCHART X109L Erythrocytes 4.18 (L) 4.32 - POWERCHART 5.72 [id number] Hemoglobin 12.7 (L) 13.5 - POWERCHART 17.5 GDL Hematocrit 36.3 (L) 38.8 - POWERCHART 50.0 MCV 86.8 81.0 - POWERCHART 95.0 FL Platelet Count 214 150 - 450 POWERCHART X109L HX RDW 12.5 11.8 - POWERCHART 15.6 Specimen (Source) Anatomical Collection Method Collection Time Re ceived Time Location / / Volume Laterality Blood 11/06/2015 12:40 PM AIDS NURSE Piero Alejandro M.D. LAB BLOOD ADD-ON Performing Organization Address City/State/ZIP Code Phon e Number POWERCHART (ABNORMAL) BMP (Basic Metabolic Panel) (11/06/2015 12:40 PM AIDS NURSE) P athologist Signature Anion Gap 14 7 [...] POWERCHART MMOLL HXeGFR (MDRD) >60 >=60 POWERCHART [id number] eGFR >60 >=60 POWERCHART Black/ [id number] South African Specimen (Source) Anatomical Collection Method Collection Time Re ceived Time Location / / Volume Laterality Blood 11/06/2015 12:40 PM AIDS NURSE Piero Alejandro M.D. LAB BLOOD ADD-ON Performing Organization Address City/State/ZIP Code Phon e Number POWERCHART DX Chest Anterior Posterior or Posterior Anterior and Lateral 2 Views (11/06/2015 12:21 PM AIDS NURSE) Anatomical Region Laterality Modality Chest N/A Radiographic Imaging Specimen (Source) Anatomical Collection Method Collection Time Re ceived Time Location / / Volume Laterality 11/06/2015 12:21 PM AIDS NURSE Addenda Addendum by Provider, Pato Chase 11/06/2015 12:21 PM AIDS NURSE RAD^^^OW XR Chest 2 Views 11/06/2015 12:21:42 Impressions 11/06/2015 12:52 PM AIDS NURSE ??No acute findings. Narrative 11/06/2015 12:52 PM AIDS NURSE EXAM: ??XR Chest 2 Views AGE: ??70 [...]
--- OUTSIDE RECORDS SUMMARY | 2022-05-27 12:13 | XMS_ITS | Encounter Summary ---
:1945 Author Organization [facility] Address [address] [place] [address] Care Team Providers Name Role Phone Unavailable Primary Care Provider Unavailable Encounter Details Date Type Department Care Team Description 05/01/2016 Hospital Encounter HX [facility] LAB Ewa Grier M.D. [address] [place], [place] [phone] (Wo rk) Social History [...] (05/01/2016 4:12 PM CDT) Analysis Performed At [facility] Time Signature Leukocytes 6.1 3.5 - 10.5 POWERCHART X109L Erythrocytes 3.70 (L) 4.32 - POWERCHART 5.72 [id number] Hemoglobin 11.9 (L) 13.5 - POWERCHART 17.5 [...] (05/01/2016 4:12 PM CDT) Analysis Performed At [facility] Time Signature Sodium, S 137 135 [...] MMOLL HXeGFR (MDRD) 43 (L) >=60 POWERCHART [id number] eGFR 52 (L) >=60 POWERCHART Black/ [id number] Uzbek Glucose 253 (H) 70 - 139 POWERCHART [...]
--- OUTSIDE RECORDS SUMMARY | 2022-05-27 12:13 | XMS_ITS | Encounter Summary ---
:1945 Author Organization [facility] Address [address] [place] [address] Care Team Providers Name Role Phone Unavailable Primary Care Provider Unavailable Encounter Details Date Type Department Care Team Description 11/06/2015 Hospital Encounter HX [facility] FB NURSE Piero Hong i, M.D. [address] [place] [phone] (Wo rk) Social History Tobacco [...] do you attend gnosticism or Never 2021 orthodox services? Do you [...] Comments Blood Pressure 144/70 11/06/2015 11:00 AM INCINERATOR OPERATOR Pulse 90 11/06/2015 11:00 AM INCINERATOR OPERATOR Temperature - - Respiratory Rate - [...] Piero Weiss M.D. - 11/09/2015 5:34 PM INCINERATOR OPERATOR Addendum by MARTI SANCHEZ LPN on 10 November 2015 16:39:05 INCINERATOR OPERATOR patient notified and images submitted to md for review Addendum by MARTI SANCHEZ LPN on 10 November 2015 08:26:40 INCINERATOR OPERATOR stress test completed of ekg part awaiting neucular images from [facility] From: PIERO WEISS MD To: LAWSON Roy Nurse; Sent: 11/09/2015 17:34:26 INCINERATOR OPERATOR Please let Jonnathan know that h is carotid ultrasound was normal and find out when his stress test is scheduled Source: [facility] POWERCHART Document Id: [id number] Electronically signed by Conversion, [facility] [employer] Operator [id number] at 02/22/2017 10:00 AM CDT Miscellaneous - Erica Morgan, C.M.A. - 11/06/2015 11:16 AM CST *General Message From: ERICA MORGAN [facility] To: PIERO WEISS MD; Sent: 11/06/2015 11:16:41 INCINERATOR OPERATOR Subject: *General Message Patient was iin for B/P check today. B/P 145/67 Pulse 93 I waited three minutes and took B/P again. B/P 144/70 Pulse 90 Source: [facility] POWERCHART Document Id: [id number] Reji - Erica Morgan C.MMauroA. - 11/06/2015 11:00 AM CST Ambulatory Vitals Height Weight Ambulatory Vitals Height Weight Entered On: 11/06/2015 11:15 INCINERATOR OPERATOR Performed On: 11/06/2015 11:00 INCINERATOR OPERATOR by ERICA MORGAN CMA Vitals/Ht/Wt Peripheral Pulse Rate : 90 /min Systolic Blood Pressure : 144 mmHg (HI) Diastolic Blood Pressure : 70 mmHg NIBP Mean : 95 mmHg BP Location : Left upper extremity Blood Pressure Cuff Size : Regular ERICA MORGAN [facility] - 11/06/2015 11:14 INCINERATOR OPERATOR [facility] Document Id: [id number] INCINERATOR OPERATOR!8 NERATOR OPERATOR Carencellmaria e - Erica Morgan C.M.A. - 11/06/2015 10:44 AM CST Ambulatory Vitals Height Weight Ambulatory Vitals Height Weight Entered On: 11/06/2015 10:45 INCINERATOR OPERATOR Performed On: 11/06/2015 10:44 INCINERATOR OPERATOR by ERICA MORGAN CMA Vitals/Ht/Wt Peripheral Pulse Rate : 93 /min Systolic Blood Pressure : 145 mmHg (HI) Diastolic Blood Pressure : 67 mmHg NIBP Mean : 93 mmHg BP Location : Left upper extremity Blood Pressure Cuff Size : Regular ERICA MORGAN [facility] - 11/06/2015 10:44 INCINERATOR OPERATOR Source: [facility] Document Id: [id number] INCINERATOR OPERATOR!8 NERATOR OPERATOR documented in this encounter Plan of Treatment Not on filedocumented as of this encounter Visit Diagnoses Not on filedocumented in this encounter Additional Health Concerns Assessment Noted Time PHQ-9 Depression Total Score: 6 01/31/2015 12:28 PM CD T documented as of this encounter
--- OUTSIDE RECORDS SUMMARY | 2022-05-27 12:13 | XMS_ITS | Encounter Summary ---
:1945 Author Organization [facility] Address [address] [place] [address] Care Team Providers Name Role Phone Unavailable Primary Care Provider Unavailable Encounter Details Date Type Department Care Team Description 05/07/2016 Hospital Encounter HX [facility] FBHB LAB Piero Grier M.D. [address] [place], [place] [phone] (Wo rk) Social History [...] do you attend faith or Never 2021 religion services? Do you [...] get him in to urology AGUILAR Source: [facility] POWERCHART Document Id: [id number] Electronically signed by Karen, [facility] Electronic Equipment Maint Tech [id number] at 02/23/2017 3:20 AM CDT Miscellaneous - Piero Weiss M.D. - 05/07/2016 [...] Urogram. Can he be seen AGUILAR in [place]? Source: [facility] POWERCHART Document Id: [id number] Electronically signed by Conversion, [facility] Electronic Equipment Maint Tech [id number] at 02/23/2017 3:20 AM CDT documented in [...] POWERCHART MMOLL HXeGFR (MDRD) >60 >=60 POWERCHART [id number] eGFR >60 >=60 POWERCHART Black/ [id number] U[place]ayan Glucose 166 (H) 70 - 139 POWERCHART [...]
--- OUTSIDE RECORDS SUMMARY | 2022-05-27 12:13 | XMS_ITS | Encounter Summary ---
:1945 Author Organization [facility] Address [address] [place] [address] Care Team Providers Name Role Phone Unavailable Primary Care Provider Unavailable Encounter Details Date Type Department Care Team Description 04/19/2015 Hospital Encounter HX [facility]HB [facility]ILY[facility] MyrMiesha felton, STRAW HAT PRESSER, C.N.P. [address] [place] [phone] (Wo rk) Social History Tobacco [...] do you attend faith or Never 2021 latter-day services? Do you [...] of this encounter Progress Notes Petr Dial, STRAW HAT PRESSER, C.N.P. - 04/19/2015 11:29 AM CDT [id number] CHIEF COMPLAINT/REASON FOR VISIT Diabetes neuropathy, here [...] neuropathy. Here for diabetes education. Please see software lead intake form in the electronic medical record. Today 30 minutes was spent counseling and coordinating care including discussing diet, how to increase protein, eat healthy carbohydrates. We reviewed carbohydrate counting. He was given several handouts with information on diet and carbohydrate counting and recommendedservings per day. Petr Dial, ZULEYKA/aos Electronically Signed By: PETR DIAL CNP On: 04/20/2015 11:12 AM Source: [facility] MHSDOLBEYNDAVONS Document Id: [id number] documented in this encounter Nursing Notes Petr Dial APRN, C.N.P. - 04/19/2015 1:02 PM CDT General House Worker Intake (Adult) General House Worker Intake (Adult) Entered On: 04/19/2015 13:04 CDT [...] - 04/19/2015 13:02 CDT MIESHA DIALMaryana Strong [facility] - 04/19/2015 13:02 CDT PETR DIALTae [facility] - 04/19/2015 13:02 CDT Source: [facility] POWERCHART Document Id: [id number] CDT!36 Petr Dial APRN, C.N.P. - 04/19/2015 [...] that are unsaturated. ?? Talk to your oncology nurse about safe sugar substitutes. ?? Avoid added [...] of Nutrition and Dietetics www.eatright.org ?? The [place] [employer] 604-462-9437 www.diabetes.org ?? [place] [address]. All rights reserved. This information is not intended as a substitute for professional medical care. Always follow your healthcare professional's instructions. This document has images extracted. Please consider using [employer] for all your patient education needs. Source: [employer] Document Id: [id number] documented in this encounter Miscellaneous Notes Miscellaneous [...] MCINTOSH LPN - 04/19/2015 11:44 CDT Source: [employer] Document Id: [id number] CDT!7 Miscellaneous - Petr Dial APRN C.N.P. - 04/19/2015 11:43 AM CDT Ambulatory Patient Summary [address] [id number] Visit Information Name: RENEEBETH HANSON [facility] Number: [id number] Current Date: 04/19/2015 11:43:45 Physicians [...] that are unsaturated. ?? Talk to your oncology nurse about safe sugar substitutes. ?? Avoid added [...] of Nutrition and Dietetics www.eatright.org ?? The [place] [employer] 619-474-7167 www.diabetes.org ?? [address], [place] [address]. All rights reserved. This information is not [...] if you dont have one. Go to [email or web address] and click on Create Your Account. Then, follow the directions to complete the online form. Youll be asked for your [facility] number which you can find at the top of this document. Your Goals/Additional instructions: This document has images extracted. Please consider using [employer] for all your patient education needs. Source: [facility] POWERCHART Document Id: [id number] Miscellaneous - Petr Dial APRN, C.N.P. - 04/19/2015 11:43 AM CDT Ambulatory Discharge Medication List [address] [id number] Visit Information Name: BETH COSTA [facility] Number: [id number] Visit Date: 04/19/2015 11:43:43 Attending [...] of emergency. Electronically Signed By: PETR DIAL EQUITY RESEARCH ASSOCIATE Signed On:19-APR-2015 11:43:24 Additional Information: Source: [facility] POWERCHART Document Id: [id number] Miscellaneous - Vashti Mcintosh L.P.NMauro - 04/19/2015 11:42 AM CDT Adult Automotive Engineering Technician Intake/History Adult Automotive Engineering Technician Intake/History Entered On: 04/19/2015 11:44 CDT Performed [...] Weight Clinic : 110.8 kg VASHTI MCINTOSH UTILITY BAG ASSEMBLER - 04/19/2015 11:42 CDT General Info Information Given By : Patient Preferred Communication Mode : Verbal Languages : Yoruba Is Patient Female and 13-50 no hysterectomy : No VASHTI MCINTOSH UTILITY BAG ASSEMBLER - 04/19/2015 11:42 CDT Subjective Pain Symptoms : No VASHTI MCINTOSH UTILITY BAG ASSEMBLER - 04/19/2015 11:42 CDT Dependent Habits Tobacco Use/Currently Using : No Exposure to Tobacco Smoke : Other: quit 40 years ago Smoking Status : Former smoker VASHTI MCINTOSH [facility] - 04/19/2015 11:42 CDT Tobacco Use Grid Type : Cigarettes VASHTI MCINTOSH UTILITY BAG ASSEMBLER - 04/19/2015 11:42 CDT Caffeine Use Grid Caffeine Use : Current Type : Coffee Frequency : Daily VASHTI MCINTOSH [facility] - 04/19/2015 11:42 CDT Recreational Drug Use Grid Drug Use : None VASHTI MCINTOSH UTILITY BAG ASSEMBLER - 04/19/2015 11:42 CDT Source: [employer] Document Id: [id number] CDT!37 documented in this encounter Plan of Treatment Not on filedocumented as of this encounter Visit Diagnoses Not on filedocumented in this encounter Additional Health Concerns Assessment Noted Time PHQ-9 Depression Total Score: 6 01/31/2015 12:28 PM CD T documented as of this encounter
--- OUTSIDE RECORDS SUMMARY | 2022-05-27 12:14 | XMS_ITS | Encounter Summary ---
:1945 Author Organization [facility] Address [address] [place] [address] Care Team Providers Name Role Phone Unavailable Primary Care Provider Unavailable Encounter Details Date Type Department Care Team Description 04/18/2014 Hospital Encounter HX [facility] FB LAB Piero Grier M.D. [address] [place], [place] [phone] (Wo rk) Social History [...] Result Letter 21 April 2014 JONNATHAN COSTA [address] [facility] [id number] Dear JONNATHAN COSTA, Your A1c is stable. [...] 10/13/2013 - <=5.6 Sincerely, PIERO MURILLO [address] [facility] [place] [address] Electronic Signature Electronically Signed By: PIERO MURILLO MD On: 21 April 2014 This document has images extracted. Source: [facility] Myco[employer]CHART Document Id: [id number] documented in this encounter Plan of Treatment Not on filedocumented as of this encounter Procedures Procedure Name Priority Date/Time Associated Diagnosis Comme nts LIPID PANEL, S Routine 04/18/2014 8:04 AM Results for this CDT procedure are i n the results section . documented in this encounter Results (ABNORMAL) Lipid Panel (04/18/2014 8:04 AM CDT) [facility] Method Time Signature Cholesterol, 193 0 - [...]
--- OUTSIDE RECORDS SUMMARY | 2022-05-27 12:14 | XMS_ITS | Encounter Summary ---
:1945 Author Organization [facility] Address [address] [place] [address] Care Team Providers Name Role Phone Unavailable [...] do you attend rastafari or Never 2021 buddhism services? Do you [...]
--- OUTSIDE RECORDS SUMMARY | 2022-05-27 12:14 | XMS_ITS | Encounter Summary ---
:1945 Author Organization [facility] Address [address] [place] [address] Care Team Providers Name Role Phone Unavailable Primary Care Provider Unavailable Encounter Details Date Type Department Care Team Description 02/09/2015 Hospital Encounter HX NO MAPPING Ewa Alejandro M.D. [address] [place], [place] [phone] (Wo rk) Social History [...] do you attend rastafari or Never 2021 bahai services? Do you [...] Coding Summary-Paper Based CODING DATE: 02/21/2015 FINAL [facility] STATUS: * Discharged to Home [...] LYMAN Date Saved: 02/21/2015 03:40 pm [facility] P[facility] Document Id: [id number] documented in this encounter Plan of Treatment Not on filedocumented as of this encounter Visit Diagnoses Not on filedocumented in this encounter Additional Health Concerns Assessment Noted Time PHQ-9 Depression Total Score: 6 01/31/2015 12:28 PM CD T documented as of this encounter
--- OUTSIDE RECORDS SUMMARY | 2022-05-27 12:14 | XMS_ITS | Encounter Summary ---
:1945 Author Organization [facility] Address [address] [place] [address] Care Team Providers Name Role Phone Unavailable Primary Care Provider Unavailable Encounter Details Date Type Department Care Team Description 04/18/2014 Hospital Encounter HX [facility] FB LAB Ewa Grier M.D. [address] [place], [place] [phone] (Wo rk) Social [...] do you attend restoration or Never 2021 zoroastrian services? Do you [...]
--- OUTSIDE RECORDS SUMMARY | 2022-05-27 12:14 | XMS_ITS | Encounter Summary ---
:1945 Author Organization [facility] Address [address] [place] [address] Care Team Providers Name Role Phone Unavailable Primary Care Provider Unavailable Encounter Details Date Type Department Care Team Description 01/31/2009 Hospital Encounter HX NO MAPPING Toño Phillips M.D. [address] [place], [place] [address] (Wo rk) Social History [...]
--- OUTSIDE RECORDS SUMMARY | 2022-05-27 12:14 | XMS_ITS | Encounter Summary ---
:1945 Author Organization [facility] Address [address] [place] [address] Care Team Providers Name Role Phone Unavailable Primary Care Provider Unavailable Encounter Details Date Type Department Care Team Description 03/02/2003 Hospital Encounter HX NO MAPPING Amanda Mckoy Au. D. Social History Tobacco Use Types Packs/Day [...] do you attend uatsdin or Never 2021 uatsdin services? Do you [...]
--- OUTSIDE RECORDS SUMMARY | 2022-05-27 12:14 | XMS_ITS | Encounter Summary ---
:1945 Author Organization [facility] Address [address] [place] [address] Care Team Providers Name Role Phone Unavailable Primary Care Provider Unavailable Encounter Details Date Type Department Care Team Description 08/22/2010 Hospital Encounter HX [facility] FBHB José Collazo M.D. [address] [place] [phone] (Wo rk) Social History Tobacco [...] do you attend zoroastrian or Never 2021 holiness services? Do you [...] Phillips M.D. - 08/22/2010 12:00 AM CST [id number] IMPRESSION/REPORT/PLAN The patient is ASA Class II [...] dysfunction 6. Pulmonary symptomatology, diagnosis at the [facility] unclear, but probably some degree of COPD 7. Status post left cataract surgery at the [facility] Age: 65. Diphtheria/Tetanus: 01/14/2009. Influenza [...] PHILLIPS MD On 08/22/2010 03:48 PM Source: [facility] MHSDOLBEYNONRADSYS Document Id: [id number] [employer]RON[employer] ASSEMBLY documented in this encounter Nursing Notes Aleida Polanco L.PMauroNMauro - 08/27/2010 7:52 AM CST pre-op pre-op faxed to [place] Electronically Signed By:ALEIDA POLANCO LPN On 08/27/2010 07:53 am Source: [facility] [employer] Document Id: [id number] [employer] documented in this encounter Miscellaneous Notes Miscellaneous - Kelly Phillips M.D. - 08/27/2010 8:12 AM CST Reminder Msg Document Contains Addenda Addendum by ALEIDA POLANCO LPN on 28 August 2010 13:07:59 SUPERVISOR ELECTRONICS ASSEMBLY called wt results From: KELLY PHILLIPS MD To: ALEIDA POLANCO LPN Sent: 08/27/2010 08:12:24 SUPERVISOR ELECTRONICS ASSEMBLY ! Show up: 08/27/2010 08:12:00 SUPERVISOR ELECTRONICS ASSEMBLY Subject: Reminder Msg Actions: Notify patient of results Due Date/Time: 08/27/2010 08:12:00 SUPERVISOR ELECTRONICS ASSEMBLY Source: [facility] POWERCHART Document Id: [id number] Miscellaneous - Kelly Phillips M.D. - 08/22/2010 11:46 AM CST Reminder Msg Document Contains Addenda Addendum by ALEIDA POLANCO LPN on 28 August 2010 13:07:44 SUPERVISOR ELECTRON[employer] ASSEMBLY called with results patient will call back about starting new RX From: KELLY PHILLIPS MD To: ALEIDA POLANCO LPN Sent: 08/22/2010 11:46:06 SUPERVISOR ELECTRONICS ASSEMBLY ! Show up: 08/22/2010 11:44:00 SUPERVISOR ELECTRONICS ASSEMBLY Subject: Reminder Msg Actions: Notify patient of results Due Date/Time: 08/22/2010 11:44:00 SUPERVISOR ELECTRONICS ASSEMBLY Source: [facility] POWERCHART Document Id: [id number] Electronically signed by Conversion, [facility] Betting Agency Manager [id number] at 03/03/2017 4:38 AM CDT Miscellaneous - Kelly Phillips M.D. - 08/22/2010 10:43 AM CST Reminder Msg Document Contains Addenda Addendum by ALEIDA POLANCO LPN on 28 August 2010 13:06:55 SUPERVISOR ELECTRONICS ASSEMBLY called with results From: KELLY PHILLIPS MD To: ALEIDA POLANCO LPN Sent: 08/22/2010 10:43:19 SUPERVISOR ELECTRONICS ASSEMBLY ! Show up: 08/22/2010 10:42:00 SUPERVISOR ELECTRONICS ASSEMBLY Subject: Reminder Msg Actions: Notify patient of results Due Date/Time: 08/22/2010 10:42:00 SUPERVISOR ELECTRONICS ASSEMBLY Source: [facility] [employer]CHART Document Id: [id number] Electronically signed by Conversion, [facility] Betting Agency Manager [id number] at 03/03/2017 4:38 AM CDT Reji - Aleida Polanco L.P.NMauro - 08/22/2010 9:35 AM CST Ambulatory Vitals Height Weight Ambulatory Vitals Height Weight Entered On: 08/22/2010 9:35 SUPERVISOR ELECTRONICS ASSEMBLY Performed On: 08/22/2010 9:35 SUPERVISOR ELECTRONICS ASSEMBLY by ALEIDA POLANCO LPN Vitals/Ht/Wt Temperature Core: 36.6C(Converted to: 97.9DegF) SpO2: 97% Oxygen Therapy: Room air ALEIDA POLANCO LPN - 08/22/2010 9:35 SUPERVISOR ELECTRONICS ASSEMBLY Source: [facility] POWERCHART Document Id: [id number] SUPERVISOR ELECTRONICS ASSEMBLY!5 RV[employer]OR E[employer]RON[employer] ASSEMBLY Miscellaneous - Aleida Polanco L.P.N. - 08/22/2010 9:32 AM CST Adult Global Logistics Analyst Intake/History Adult Global Logistics Analyst Intake/History Entered On: 08/22/2010 9:34 SUPERVISOR ELECTRONICS ASSEMBLY Performed On: 08/22/2010 9:32 SUPERVISOR ELECTRONICS ASSEMBLY by ALEIDA POLANCO LPN Intake Chief Complaint: [...] 30kg/m2 ALEIDA POLANCO LPN - 08/22/2010 9:32 SUPERVISOR ELECTRONICS ASSEMBLY Subjective Pain Symptoms: No ALEIDA POLANCO LPN - 08/22/2010 9:32 SUPERVISOR ELECTRONICS ASSEMBLY Dependent Habits Tobacco Use/Currently Using: No Alcohol Use: Yes ALIEDA POLANCO LPN - 08/22/2010 9:32 SUPERVISOR ELECTRONICS ASSEMBLY Caffeine Use Grid Caffeine Use: Current Type: Coffee Frequency: Daily ALEIDA POLANCO LPN - 08/22/2010 9:32 SUPERVISOR ELECTRONICS ASSEMBLY Recreational Drug Use Grid Drug Use: None ALEIDA POLANCO LPN - 08/22/2010 9:32 SUPERVISOR ELECTRONICS ASSEMBLY Allergies Latex Screening: No ALEIDA POLANCO LPN - 08/22/2010 9:32 SUPERVISOR ELECTRONICS ASSEMBLY Allergies (Active) penicillin Estimated Onset Date: Unspecified ; Created By: ALEIDA POLANCO LPN; Reaction Status:Active ; Category: Drug ; Substance: penicillin ; Type: Allergy ; Updated By: ALEIDA POLANCO LPN; Source: Paper Chart/Abstracting ; Reviewed Date: 08/22/2010 9:26 SUPERVISOR ELECTRON[employer] ASSEMBLY sulfa drugs Estimated Onset Date: Unspecified ; Created By: ALEIDA POLANCO LPN; Reaction Status: Active ; Category: Drug ; Substance: sulfa drugs ; Type: Allergy ; Updated By: ALEIDA POLANCO LPN; Source: Paper Chart/Abstracting ; Reviewed Date: 08/22/2010 9:26 SUPERVISOR ELECTRONICS ASSEMBLY Source: [facility] POWERCHART Document Id: [id number] SUPERVISOR ELECTRONICS ASSEMBLY!31 RVISOR ELECTRON[employer] ASSEMBLY documented in this encounter Plan of Treatment Not on filedocumented as of this encounter Visit Diagnoses Not on filedocumented in this encounter
--- OUTSIDE RECORDS SUMMARY | 2022-05-27 12:14 | XMS_ITS | Encounter Summary ---
:1945 Author Organization [facility] Address [address] [place] [address] Care Team Providers Name Role Phone Unavailable Primary Care Provider Unavailable Encounter Details Date Type Department Care Team Description 01/31/2015 Hospital Encounter [facility]X [facility] FB FAMILYPRA Piero Moya i, M.D. [address] [place] [address] (Wo rk) Social History Tobacco [...] do you attend amish or Never 2021 congregation services? Do you [...] Weiss M.D. - 01/31/2015 9:01 AM CDT [id number] CHIEF COMPLAINT/ REASON FOR VISIT Review medications, [...] did have a bladder capacity checked at [place] about 3 years ago and he is fine. Jonnathan does not have any issues falling asleep. He does state that he is waking up not as much rested as previously. PHQ9 is 6, TINEO Index of [place] is 6, safety screening reviewed. Discussed end [...] dysfunction. 6. Pulmonary symptomatology, diagnosis at the [facility] unclear, but probably some degree of COPD. 7. Status post left cataract surgery at the [facility]. 8. Tonsillectomy. 9. AGNIESZKA, prescribed CPAP therapy but is currently not using. PREVENTIVE SERVICES: Tobacco use: None. Lipid panel: 07/07/2013. Colonoscopy: 08/10/13. Tetanus booster: updated today. Zoster vaccine: 06/2012 at the [facility]. Pneumovax: 11/15/2008. Prevnar: updated today. SOCIAL HISTORY He is . He doesn't smoke. 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 FAMILY HISTORY Mother had hypertension. There is no colon or prostate cancer in the family. There is no diabetes. Father had an HI at age 76. Asthma and mental illness [...] behalf by Karen Jones, a trained medical editor. The creation of this record is based on the scribe's personal observations and the provider's statements to them. This document has been checked and approved by the attending provider. Piero Hinton M.D./ Electronically Signed By: PIERO WEISS MD On: 03/15/2015 10:32 PM Source: [facility] MHSDOLBEYNONRADSYS Document Id: [id number] documented in this encounter Procedure Notes Conversion, Historical Provider Ser - 01/31/2015 9:29 AM CDT Vision Testing Vision Testing Entered On: 01/31/2015 9:30 CDT Performed On: 01/31/2015 9:29 CDT by JOSE BAGLEY LPN Vision Testing Eye, Right w/o Correction : 20/40 Eye, Left w/o Correction : 20/20 JOSE BAGLEY LPN - 01/31/2015 9:29 CDT Source: [facility] POWERCHART Document Id: [id number] CDT!4 documented in this encounter Miscellaneous Notes [...] BAGLEY LPN - 01/31/2015 12:28 CDT Source: [employer] Document Id: [id number] CDT!13 Miscellaneous - Conversion, Historical Provider Ser [...] BAGLEY LPN - 01/31/2015 9:26 CDT Source: [employer] Document Id: [id number] CDT!8 Miscellaneous - Conversion, Historical Provider Ser - 01/31/2015 9:22 AM CDT Adult Reducing Machine Operator Intake/History Adult Reducing Machine Operator Intake/History Entered On: 01/31/2015 9:26 CDT Performed On: 01/31/2015 9:22 CDT by MC LUNA, JOSE ADÁN PICTURE ENLARGER Intake Chief Complaint : physical Temperature Core [...] Information Given By : Patient Languages : Syrian Is Patient Female and 13-50 no hysterectomy : No JOSE BAGLEY PICTURE ENLARGER - 01/31/2015 9:22 CDT Subjective Pain Symptoms : No JOSE BAGLEY IRMA - 01/31/2015 9:22 CDT Dependent Habits Tobacco Use/Currently Using : No Smoking Status : Former smoker JOSE BAGLEY [facility] - 01/31/2015 9:22 CDT Tobacco Use Grid Type : Cigarettes Last Use : quit 1980 JOSE BAGLEY [facility] - 01/31/2015 9:22 CDT Caffeine Use Grid Caffeine Use : Current Type : Coffee Frequency : Daily JOSE BAGLEY PICTURE ENLARGER - 01/31/2015 9:22 CDT Recreational Drug Use Grid Drug Use : None JOSE BAGLEY PICTURE ENLARGER - 01/31/2015 9:22 CDT ID Screen Drug Resistant Organism : No Travel Within Last 21 Days : No Contact with someone with Ebola : No JOSE BAGLEY IRMA - 01/31/2015 9:22 CDT Source: [employer] Document Id: [id number] CDT!41 Miscellaneous - Conversion, Historical Provider Ser - 01/31/2015 9:22 AM CDT Health Assessment Health Assessment Entered On: 01/31/2015 9:26 CDT Performed On: 01/31/2015 9:22 CDT by JOSE BAGLEY PICTURE ENLARGER Health Assessment Complete Health Assessment Complete or Modified : Annual Health Assessment Annual Health Assessment Completed : Yes JOSE BAGLEY IRMA - 01/31/2015 9:22 CDT Nutrition Nutrition Risk Factors by History Adult : None JOSE BAGLEY IRMA - 01/31/2015 9:22 CDT Functional Current Daily Living Assistance : None JOSE BAGLEY PICTURE ENLARGER - 01/31/2015 9:22 CDT Dependent Habits Tobacco Use/Currently Using : No Smoking Status : Former smoker JOSE BAGLEY PICTURE ENLARGER - 01/31/2015 9:22 CDT Caffeine Use Grid Caffeine Use : Current Type : Coffee Frequency : Daily JOSE BAGLEY PICTURE ENLARGER - 01/31/2015 9:22 CDT Recreational Drug Use Grid Drug Use : None JOSE BAGLEY [facility] - 01/31/2015 9:22 CDT Psychosocial Domestic Abuse Concerns : None Behavioral Health Screen/Safety Assmt : No Mormonism Preference : Unknown JOSE BAGLEY [facility] - 01/31/2015 9:22 CDT Advance Directive Advanced Directives : No Advance Directive Additional Information : No JOSE BAGLEY [facility] - 01/31/2015 9:22 CDT Educ Needs Learning Style Preference Adult Grid Patient : Printed materials Family : Printed materials JOSE BAGLEY [facility] - 01/31/2015 9:22 CDT Source: [facility] [employer] Document Id: [id number] CDT!30 documented in this encounter Plan of [...] Erythrocytes 4.12 (L) 4.32 - POWERCHART 5.72 [id number] Hemoglobin 12.6 (L) 13.5 - POWERCHART 17.5 [...] for FH and FDB is available throu [facility]: FH/ADH Genetic Reflex [...] at or the on-line test catalog at [employer] for information about how to order these [...]
--- OUTSIDE RECORDS SUMMARY | 2022-05-27 12:14 | XMS_ITS | Encounter Summary ---
:1945 Author Organization [facility] Address [address] [place] [address] Care Team Providers Name Role Phone Unavailable Primary Care Provider Unavailable Encounter Details Date Type Department Care Team Description 03/03/2003 Hospital Encounter HX [facility] Oni Felix M.D. [address] [place], [place] [phone] (Wo rk) Social History [...] do you attend judaism or Never 2021 uatsdin services? Do you [...]
--- OUTSIDE RECORDS SUMMARY | 2022-05-27 12:14 | XMS_ITS | Encounter Summary ---
:1945 Author Organization [facility] Address [address] [place] [address] Care Team Providers Name Role Phone Unavailable Primary Care Provider Unavailable Encounter Details Date Type Department Care Team Description 02/09/2015 Hospital Encounter HX [facility] FB FAMILYPRA Piero Moya i, M.D. [address] [place] [address] (Wo rk) Social History Tobacco [...] do you attend druze or Never 2021 caodaism services? Do you [...] Rojas M.D. - 02/09/2015 9:55 AM CDT [id number] CHIEF COMPLAINT/ REASON FOR VISIT Skin lesion [...] solution. Once adequate anesthesia was obtained, a [place] blade was used to shave the entire [...] by Maria Luisa Alonso, a trained medical corps officer. The creation of this record is basedon the scribe's personal observations and the provider's statements to them. This document has been c hecked and approved by the attending provider. Piero Hinton M.D./cam Electronically Signed By: PIERO ROJAS MD On: 05/22/2015 06:34 PM Source: [facility] MHSDOLBEYNONRADSYS Document Id: [id number] documented in this encounter Miscellaneous Notes Miscellaneous - Piero Rojas M.D. - 02/15/2015 5:46 PM CDT Addendum by BO CALDWELL on 16 Feb 2015 09:01:52 CDT Patient notified. From: PIERO ROJAS MD To: LAWSON Roy Nurse; Sent: 02/15/2015 17:46:53 CDT Please inform Mr. Duran that the skin lesion was benign. Source: [facility] [employer] Document Id: [id number] Miscellaneous - Piero Rojas M.D. - 02/09/2015 4:54 PM CDT Ambulatory Patient Summary [address] [id number] Visit Information Name: BETH DURAN [facility] Number: [id number] Current Date: 02/09/2015 16:54:29 [...] nasal (fluticasone 50 mcg/inh nasal spray) 2 Vina(s), Nostrils(Both), once a day gemfibrozil (gemfibrozil 600 [...] Source: [facility] POWERCHART Document Id: [id number] Miscellaneous - Piero Rojas M.D. - 02/09/2015 4:54 PM CDT Ambulatory Discharge Medication List [address] [id number] Visit Information Name: BETH DURAN [facility] Number: [id number] Visit Date: 02/09/2015 16:54:27 [...] nasal (fluticasone 50 mcg/inh nasal spray) 2 Vina(s), Nostrils(Both), once a day gemfibrozil (gemfibrozil 600 [...] MD Signed On:09-FEB-2015 16:52:46 Additional Information: Source: [facility] POWERCHART Document Id: [id number] Miscellaneous - Kitty Sexton, LMauroPMauroN. - 02/09/2015 10:12 AM CDT Adult Skills Instructor Intake/History Adult Skills Instructor Intake/History Entered On: 02/09/2015 10:17 CDT Performed [...] Information Given By : Patient Languages : Ivorian Is Patient Female and 13-50 no hysterectomy [...] No KITTY SEXTON 02/09/2015 10:12 CDT [facility] Document Id: [id number] CDT!35 Miscellaneous - Piero Rojas M.D. - [...] the cholesterol panel in 8 weeks. [facility] Document Id: [id number] documented in this encounter Plan of Treatment [...] [facility] LAB - 02/13/2015 9:58 AM CDT [facility] in [address] [place] [phone] Patient Name: BETH DURAN Patient ID #: [id number] Collected: 02/09/2015 Address: City/State/Zip: [address] [place] [address] ??[phone] Received: Reported: 02/10/2015 02/13/2015 Soc. Sec. #: ?/Age/Sex 1945 (Age: 69) ??M Physician(s): IRENA HINTON MD Copy To: ? 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 [facility]/02/13/2015 JOSE KHAN M.D. Report electronically released. Interpretation by JOSE KHAN M.D. SPECIMEN(S) RECEIVED: LEFT FOREARM LESION GROSS DESCRIPTION: Consists of a 3 mm skin fragment. Carlos OLMSTEAD, one cassette. ([id number]) DDG/FELICITY/02/10/2015 MICROSCOPIC DESCRIPTION: Reviewed by Jose Khan M.D.; Path ologist [facility]/02/13/2015 Piero Alejandro M.D. LAB SURG PATH ORDERABL ES Performing Organization Address City/State/ZIP Code Phon e Number LCM LAB documented in this encounter Visit Diagnoses Not on filedocumented in this encounter Additional Health Concerns Assessment Noted Time PHQ-9 Depression Total Score: 6 01/31/2015 12:28 PM CD T documented as of this encounter
--- OUTSIDE RECORDS SUMMARY | 2022-05-27 12:14 | XMS_ITS | Encounter Summary ---
:1945 Author Organization [facility] Address [address] [place] [address] Care Team Providers Name Role Phone Unavailable Primary Care Provider Unavailable Encounter Details Date Type Department Care Team Description 10/13/2013 Hospital Encounter HX [facility] FBHB LAB Ewa Grier M.D. [address] [place], [place] [phone] (Wo rk) Social History [...] 10/13/2013 8:04 AM Resu lts for this BLADE CHANGER procedure are i n the results section. documented in this encounter Results (ABNORMAL) Hemoglobin A1c (10/13/2013 8:04 AM BLADE CHANGER) P athologist Signature Hemoglobin A1c, 7.7 (H) 4.0 - 6.0 POWERCHART B Specimen (Source) Anatomical Collection Method Collection Time Re ceived Time Location / / Volume Laterality Blood 10/13/2013 8:04 AM BLADE CHANGER Ewa Alejandro M.D. LAB BLOOD ADD-ON Performing Organization Address City/State/ZIP Code Phon e Number POWERCHART documented in this encounter Visit Diagnoses Not on filedocumented in this encounter
--- OUTSIDE RECORDS SUMMARY | 2022-05-27 12:14 | XMS_ITS | Encounter Summary ---
:1945 Author Organization [facility] Address [address] [place] [address] Care Team Providers Name Role Phone Unavailable Primary Care Provider Unavailable Encounter Details Date Type Department Care Team Description 10/16/2009 Hospital Encounter HX NO MAPPING Toño Phillips M.D. [address] [place], [place] [address] (Wo rk) Social History [...] do you attend pentecostalism or Never 2021 adventism services? Do you [...] lts for this AND LATERAL 2 VIEWS WAVE SOLDER OFFBEARER procedur e are in the results section. documented in this encounter Results DX Chest AP or PA and Lateral 2 Views (10/16/2009 4:40 PM WAVE SOLDER OFFBEARER) Anatomical Region Laterality Modality Chest N/A Radiographic Imaging Specimen (Source) Anatomical Collection Method Collection Time Re ceived Time Location / / Volume Laterality 10/16/2009 4:40 PM WAVE SOLDER OFFBEARER Addenda Addendum by Provider, Pato Chase n 10/16/2009 4:40 PM WAVE SOLDER OFFBEARER RAD^^^OW XR Chest 2 Views 10/16/2009 16:40:00 Addendum by ProviderRena M.D. o n 10/16/2009 4:40 PM WAVE SOLDER OFFBEARER RAD^^^MA XR CHEST 2 VIEWS 10/16/2009 16:40:00 Narrative 10/16/2009 5:09 PM WAVE SOLDER OFFBEARER FINDINGS: The heart is normal in size an d the lungs are clear. ?? CONCLUSION: ??Normal chest. Procedure Note Franklyn Crain M.D. / Provider, Sahil joradn M.D. - 02/20/2017 FINDINGS: The heart is normal in size an d the lungs are clear. CONCLUSION: Normal chest. Alysha FlowersTMauro(R), R.T.(R)(M) IMG DIAGNOSTIC IMAGING PROCEDURES documented in this encounter Visit Diagnoses Not on filedocumented in this encounter
--- OUTSIDE RECORDS SUMMARY | 2022-05-27 12:14 | XMS_ITS | Encounter Summary ---
:1945 Author Organization [facility] Address [address] [place] [address] Care Team Providers Name Role Phone Unavailable [...] do you attend muslim or Never 2021 jehovah's witness services? Do [...]
--- OUTSIDE RECORDS SUMMARY | 2022-05-27 12:14 | XMS_ITS | Encounter Summary ---
:1945 Author Organization [facility] Address [address] [place] [address] Care Team Providers Name Role Phone Unavailable [...] do you attend christian or Never 2021 pentecostalism services? Do you [...] Comments Blood Pressure 136/76 08/17/2013 2:11 PM PROJECT MANAGER RETAIL Pulse - - Temperature - - Respiratory [...] Major M.D. - 08/17/2013 1:43 PM CST [id number] I spent about 15 minutes with this [...] MAJOR MD On: 09/02/2013 10:36 AM Source: [facility] MHSDOLBEYNONRADSYS Document Id: [id number] ECT MANAGER RETAIL documented in this encounter Miscellaneous Notes Miscellaneous - Roxann Echols - 08/17/2013 3:41 PM CST Reminder Msg-Schedule Colonoscopy From: ROXANN ECHOLS (FB Surgery Nurse) To: FB Surgery Nurse; Sent: 08/17/2013 15:41:53 PROJECT MANAGER RETAIL Show up: 07/10/2018 15:41:00 CDT Subject: Reminder Msg-Schedule Colonoscopy Due Date/Time: 08/10/2018 15:41:00 PROJECT MANAGER RETAIL Please Remember to: Schedule colonoscopy; rescope in [address] Major intermediate risk; hx of polpys; last one 08-10-13 PATIENT: ( ) Call Patient ( ) Ask Patient to ( ) ( ) Call Relative ( ) Schedule Patient ( ) ( ) Call for Specialized Developer ( ) Follow up on Results ( ) Other: PROVIDER: ( ) Call Physician ( ) Call Pharmacist ( ) Call Lab ( ) Other: Special Instructions: Comments: Source: [facility] POWERCHART Document Id: [id number] Electronically signed by Karen [facility] [id number] at 02/26/2017 5:00 PM CDT Miscellaneous - Kyree Major M.D. - 08/17/2013 2:44 PM CST Ambulatory Patient Summary [address] [id number] Visit Information Name: JONNATHAN COSTA [facility] Number: [id number] Current Date: 08/17/2013 14:44:55 [...] appointment detail needed. Your Goals/Additional instructions: Source: [facility] POWERCHART Document Id: [id number] ECT MANAGER RETAIL Miscellaneous - Kyree Major M.D. - 08/17/2013 2:44 PM CST [place] [address] Visit Information Name: JONNATHAN COSTA [facility] Number: [id number] Visit Date: 08/17/2013 14:44:55 [...] your provider for clarification. Additional Information: Source: [facility] FST21 Document Id: [id number] ECT MANAGER RETAIL Miscellaneous - Roxann Echols - 08/17/2013 2:11 PM CST Adult Emt/Dispatcher Intake/History Adult Emt/Dispatcher Intake/History Entered On: 08/17/2013 14:12 PROJECT MANAGER RETAIL Performed On: 08/17/2013 14:11 PROJECT MANAGER RETAIL by ROXANN ECHOLS Intake Chief Complaint : colonoscopy results Temperature Core : 36.6 DegC(Converted to: 97.9 DegF) Systolic Blood Pressure : 136 mmHg Diastolic Blood Pressure : 76 mmHg NIBP Mean : 96 mmHg BP Location : Left upper extremity Blood Pressure Cuff Size : Regular ROXANN ECHOLS - 08/17/2013 14:11 PROJECT MANAGER RETAIL General Info Languages : Malian ROXANN ECHOLS - 08/17/2013 14:11 PROJECT MANAGER RETAIL Subjective Pain Symptoms : No ROXANN ECHOLS - 08/17/2013 14:11 PROJECT MANAGER RETAIL Dependent Habits Tobacco Use/Currently Using : No Smoking Status : Former smoker ROXANN ECHOLS - 08/17/2013 14:11 PROJECT MANAGER RETAIL Tobacco Use Grid Last Use : former ROXANN ECHOLS - 08/17/2013 14:11 PROJECT MANAGER RETAIL Caffeine Use Grid Caffeine Use : Current Type : Coffee Frequency : Daily ROXANN ECHOLS - 08/17/2013 14:11 PROJECT MANAGER RETAIL Recreational Drug Use Grid Drug Use : None ROXANN ECHOLS - 08/17/2013 14:11 PROJECT MANAGER RETAIL Source: [facility] [employer]CHART Document Id: [id number] PROJECT MANAGER RETAIL!27 ECT MANAGER RETAIL documented in this encounter Plan of Treatment Not on filedocumented as of this encounter Visit Diagnoses Not on filedocumented in this encounter
--- OUTSIDE RECORDS SUMMARY | 2022-05-27 12:14 | XMS_ITS | Encounter Summary ---
:1945 Author Organization [facility] Address [address] [place] [address] Care Team Providers Name Role Phone Unavailable Primary Care Provider Unavailable Encounter Details Date Type Department Care Team Description 07/07/2013 Hospital Encounter HX [facility] Piero Moya i, M.D. [address] [place] [address] (Wo rk) Social History Tobacco [...] do you attend episcopal or Never 2021 orthodoxy services? Do you [...] Weiss M.D. - 07/07/2013 9:42 AM CDT [id number] CHIEF COMPLAINT/ REASON FOR VISIT Review medications, [...] drugs. SYSTEMS REVIEW [facility] to the [facility] for much of his medical care. He [...] dysfunction 6. Pulmonary symptomatology, diagnosis at the [facility] unclear, but probably some degree of COPD 7. Status post left cataract surgery at the [facility] 8. Tonsillectomy PREVENTIVE SERVICES: Tobacco use: None. Lipid panel: 07/07/2013 Colonoscopy: ordered today. Influenza: 07/07/2013 Tetanus booster: 01/14/2009 Zoster vaccine: 06/2012 at the [facility] Pneumovax: 11/15/2008 SOCIAL HISTORY He is . He doesn't smoke. 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 FAMILY HISTORY Mother had hypertension. There is no colon or prostate cancer in the family. There is no diabetes. Father had an KS at age 76. Asthma and mental illness [...] their behalf by Krista Sotelo, a trained biomedical technician. The creation of this record is based on the scribe's personal observations and the provider's statements to them. This document has been christie cked and approved by the attending provider. Piero Murillo M.D./shelly Electronically Signed By: PIERO MURILLO MD On: 07/23/2013 08:17 AM Source: [facility] MHSDOLBEYNONRADSYS Document Id: [id number] documented in this encounter Nursing Notes Lucila Blevins - 11/03/2014 10:12 AM CST panel managment Document Contains Addenda Addendum by LUCILA BLEVINS LPN on 04 November 2014 13:53 TAKER AWAY Pt returned call and will call in [...] BLEVINS LPN On: 11/03/2014 10:13 AM Source: [facility] POWERCHART Document Id: [id number] R AWAY Roxann Echols - 07/08/2013 11:42 AM CDT Colonoscopy Document Contains Addenda Addendum by ROXANN ECHOLS on 21 July 2013 16:45 CDT [facility] in [address] [address] Referral Authorization: Procedure or visit authorized for: Colonoscopy (CPT code G0105) Referred by: Dr. Murillo Contact Location: [facility] Contact Referred to: Dr. Major Contact Location: [facility] Contact Authorization Needed: yes or _ X _ no If yes, Referral valid: From: To: Number of visits approved for: Authorized by: [email or web address] provider self service Contact Number: Date Authorized: 07-21-2013 Reference Number: or not applicable per [employer]. Individual that received the Referral Authorization: LML Modified by and Electronically Signed by: ROXANN ECHOLS On: 07/21/2013 04:45 PM Addendum by ROXANN ECHOLS on 21 July 2013 8:50 CDT DATE: 07-21-2013 SCHEDULED FOR: Colonoscopy AT [facility] WITH DR. MAJOR DATE of Procedure: 08-10-2013 TIME of Procedure: 0900 PER: DR. MURILLO/DR. TINOCO ORDERS. Prep instructions have been sent to the patient. Patient advised to not take aspirin or ibuprofen for 10 days prior to the scheduled procedure. Insurance referral done X Yes __No Copies of referring healthcare provider notes sent to [facility]. Modified by and Electronically Signed by: ROXANN ECHOLS On: 07/21/2013 08:50 AM Addendum by ROXANN ECHOLS on 12 July 2013 10:11 CDT [facility] [place] [address] Patient Communication for follow up treatment for: _Colonoscopy_ X Attempt made to contact patient made on: _07-12-2013 (per patient's request)__. a. Patient is schedule to be seen on: . b. Patient is refusing recommended treatment at this time. c. X Message left for the patient at : _[phone]_cs return call to: Roxann Echols LPN at [phone]. d. Individual that has contacted the patient: [...] by: ROXANN ECHOLS On: 07/12/2013 10:11 AM [facility] [place] [address] Patient Communication for follow up treatment for: Colonoscopy _ __ Attempt made to contact patient made on: __[phone]; patient requested a call at another time_. a. Patient is schedule to be seen on: . b. Patient is refusing recommended treatment at this time. c. Message left for the patient at : to return call to: Roxann Echols LPN at [phone]. d. Individual that has contacted the patient: [...] ROXANN ECHOLS On: 07/08/2013 11:43 AM Source: [employer] Document Id: [id number] documented in this encounter Miscellaneous Notes Miscellaneous [...] he prefers to wait until July. Source: [facility] Document Id: [id number] Electronically signed by Karen [facility] Speech Language Specialist [id number] at 02/26/2017 6:54 PM CDT Miscellaneous - Piero Weiss M.D. - 07/07/2013 12:35 PM CDT Ambulatory Patient Summary [address] [address] Visit Information Name: BETH COSTA [facility] Number: [id number] Current Date: 07/07/2013 12:35:20 [...] No Appointments found Your Goals/Additional instructions: Source: [facility] POWERCHART Document Id: [id number] Miscellaneous - Piero Weiss M.D. - 07/07/2013 12:35 PM CDT Ambulatory Depart Summary [address] [address] Visit Information Name: BETH COSTA [facility] Number: [id number] Visit Date: 07/07/2013 12:35:19 [...] your provider for clarification. Additional Information: Source: [facility] POWERCHART Document Id: [id number] Miscellaneous - Conversion, Historical Provider Ser - [...] BAGLEY LPN - 07/07/2013 10:38 CDT Source: [employer] Document Id: [id number] CDT!7 Miscellaneous - Conversion, Historical Provider Ser - 07/07/2013 10:35 AM CDT Adult Professor Of Apologetics Intake/History Adult Professor Of Apologetics Intake/History Entered On: 07/07/2013 10:37 CDT Performed [...] Mass Index : 29.8 kg/m2 JOSE BAGLEY [facility] - 07/07/2013 10:35 CDT General Info Information Given By : Patient Languages : Panamanian JOSE BAGLEY [facility] - 07/07/2013 10:35 CDT Subjective Pain Symptoms : No JOSE BAGLEY [facility] - 07/07/2013 10:35 CDT Dependent Habits Tobacco Use/Currently Using : No Tobacco Use/Last 12 months : No Smoking Status : Former smoker JOSE BAGLEY [facility] - 07/07/2013 10:35 CDT Tobacco Use Grid Last Use : former JOSE BAGLEY [facility] - 07/07/2013 10:35 CDT Caffeine Use Grid Caffeine Use : Current Type : Coffee Frequency : Daily JOSE BAGLEY [facility] - 07/07/2013 10:35 CDT Recreational Drug Use Grid Drug Use : None JOSE BAGLEY [facility] - 07/07/2013 10:35 CDT Source: [employer] Document Id: [id number] CDT!36 Miscellaneous - Conversion, Historical Provider Ser [...] Daily Living Assistance : None JOSE BAGLEY COORDINATOR OF EVALUATION - 07/07/2013 10:35 CDT Dependent Habits Tobacco Use/Currently Using : No Smoking Status : Former smoker JOSE BAGLEY LPN - 07/07/2013 10:35 CDT Caffeine Use Grid Caffeine Use : Current Type : Coffee Frequency : Daily JOSE BAGLEY LPN - 07/07/2013 10:35 CDT Recreational Drug Use Grid Drug Use : None JOSE BGALEY LPN - 07/07/2013 10:35 CDT Psychosocial Domestic Abuse Concerns : None JOSE BAGLEY [facility] - 07/07/2013 10:35 CDT Advance Directive Advanced Directives : No JOSE BAGLEY LPN - 07/07/2013 10:35 CDT Educ Needs Learning Style Preference Adult Grid Patient : Printed materials Family : Printed materials JOSE BAGLEY LPN - 07/07/2013 10:35 CDT Source: [facility] POWERCHART Document Id: [id number] CDT!27 documented in this encounter Plan of Treatment Not on filedocumented as of this encounter Visit Diagnoses Not on filedocumented in this encounter
--- OUTSIDE RECORDS SUMMARY | 2022-05-27 12:14 | XMS_ITS | Encounter Summary ---
:1945 Author Organization [facility] Address [address] [place] [address] Care Team Providers Name Role Phone Unavailable Primary Care Provider Unavailable Encounter Details Date Type Department Care Team Description 03/28/2003 Hospital Encounter HX [facility] Cooper Bateman M.D. [facility] [place], [place] [address] (Wo rk) Social History [...] do you attend caodaism or Never 2021 muslim services? Do you [...]
--- OUTSIDE RECORDS SUMMARY | 2022-05-27 12:14 | XMS_ITS | Encounter Summary ---
:1945 Author Organization [facility] Address [address] [place] [address] Care Team Providers Name Role Phone Unavailable Primary Care Provider Unavailable Encounter Details Date Type Department Care Team Description 10/13/2013 Hospital Encounter HX [facility] LAB Piero Grier M.D. [address] [place], [place] [phone] (Wo rk) Social History [...] many times do you More than three juniot es a week 10/09/2021 talk on the phone with family, friends, or neighbors? How often do you get together with friends Once a week 10/09/2021 or relatives? How often do you attend yazidi or Never 2021 mosque services? Do you [...] Piero Weiss M.D. - 10/23/2013 10:05 PM DINKEY OPERATOR SLAG Custom Result Letter 23 October 2013 JONNATHAN COSTA [address] [facility] [place] [id number] Dear JONNATHAN COSTA, The sugar seems improved as the A1C is lower. [place] is less than 7. T he cholesterol [...] 4.0 - 6.0 Sincerely, PIERO MURILLO [address] [facility] [place] [address] Electronic Signature Electronically Signed By: PIERO MURILLO MD On: 23 October 2013 This document has images extracted. Source: [facility] POWERCHART Document Id: [id number] Electronically signed by Conversion, [facility] Turner Splitter Machine Operator [id number] at 02/25/2017 2:45 PM CDT documented in this encounter Plan of Treatment Not on filedocumented as of this encounter Procedures Procedure Name Priority Date/Time Associated Comments Diagnosis LIPID PANEL, S Routine 10/13/2013 8:04 Results fo r this AM DINKEY OPERATOR SLAG procedure are i n the results section. ASPARTATE Routine 10/13/2013 8:04 Results for this AMINOTRANSFERASE (AST), AM DINKEY OPERATOR SLAG proc edure are in S/P the results section. documented in this encounter Results (ABNORMAL) Lipid Panel (10/13/2013 8:04 AM DINKEY OPERATOR SLAG) [facility] Method Time Signature Cholesterol, 222 (H) 0 - 200 POWERCHART Total MGDL HX HDL 39.0 (L) 40.0 - POWERCHART 60.0 MGDL Triglycerides 351 (H) 0 - 150 POWERCHART MGDL Calculated LDL 113 (H) 0 - 100 POWERCHART MGDL Specimen (Source) Anatomical Collection Method Collection Time Re ceived Time Location / / Volume Laterality Blood 10/13/2013 8:04 AM DINKEY OPERATOR SLAG Piero Alejandro M.D. LAB BLOOD ADD-ON Performing Organization Address City/State/[facility] Code Phon e Number POWERCHART AST (Aspartate Aminotransferase) (10/13/2013 8:04 AM DINKEY OPERATOR SLAG) [facility] Method Time Signature Aspartate 29 8 - 48 POWERCHART Aminotransferase UNITL (AST), S Specimen (Source) Anatomical Collection Method Collection Time Re ceived Time Location / / Volume Laterality Blood 10/13/2013 8:04 AM DINKEY OPERATOR SLAG Piero Alejandro M.D. LAB BLOOD ADD-ON Performing Organization Address City/State/ZIP Code Phon e Number POWERCHART documented in this encounter Visit Diagnoses Not on filedocumented in this encounter
--- OUTSIDE RECORDS SUMMARY | 2022-05-27 12:14 | XMS_ITS | Encounter Summary ---
:1945 Author Organization [facility] Address [address] [place] [address] Care Team Providers Name Role Phone Unavailable Primary Care Provider Unavailable Encounter Details Date Type Department Care Team Description 01/31/2015 Hospital Encounter HX [facility] FB LAB Ewa Grier M.D. [address] [place], [place] [phone] (Wo rk) Social History [...] do you attend tenriism or Never 2021 quaker services? Do you [...] POWERCHART MMOLL HXeGFR (MDRD) >60 >=60 POWERCHART [id number] eGFR >60 >=60 POWERCHART Black/ [id number] Sammarinese Specimen (Source) Anatomical Collection Method Collection Time [...]
--- OUTSIDE RECORDS SUMMARY | 2022-05-27 12:14 | XMS_ITS | Encounter Summary ---
:[address] [facility] Address [address] [place] [address] Care Team Providers Name Role Phone Unavailable Primary Care Provider Unavailable Encounter Details Date Type Department Care Team Description 08/09/2013 Hospital Encounter HX [facility] FB FAMILYPRA Piero Moya i, M.D. [address] [place] [phone] (Wo rk) Social History Tobacco [...] do you attend gnosticist or Never 2021 restorationist services? Do you [...] Comments Blood Pressure 138/76 08/09/2013 10:17 AM COILER Pulse 68 08/09/2013 10:15 AM COILER Temperature - - Respiratory Rate 16 08/09/2013 10:15 AM COILER Oxygen Saturation - - Inhaled Oxygen Concentration - - Weight 112 kg (246 lb 14.6 oz) 08/09/2013 10:15 AM COILER Height 192 cm (6' 3.59) 08/09/2013 10:15 AM COILER Body Mass Index 30.38 08/09/2013 10:15 AM COILER documented in this encounter Medications at Time [...] Rojas M.D. - 08/09/2013 10:00 AM CST [id number] CHIEF COMPLAINT/ REASON FOR VISIT Discuss test [...] Hypercholesterolemia: Beth will follow up at the [place] to change his prescriptions. He will discontinue [...] behalf by Krista Sotelo, a trained medical technologist chief. The creation of this record is based on the scribe's personal observations and the provider's statements to them. This document has been christie cked and approved by the attending provider. Piero Roy M.D./shelly Electronically Signed By: PIERO RYO MD On: 08/22/2013 11:04 PM Source: [facility] MHSDOLBEYNONRADSYS Document Id: [id number] ER documented in this encounter Miscellaneous Notes Miscellaneous - Lucila Crain - 12/28/2014 2:26 PM CDT *Medication Refill Msg Document Contains Addenda Addendum by FREYA REICH on 29 December 2014 07:16:25 CDT last message put in error. Addendum by FREYA REICH on 29 December 2014 07:15:47 CDT From: FREYA REICH (FB [facility] Medication Refill) To: PIERO ROJAS MD; Sent: 12/29/2014 07:15:47 CDT Subject: RE: *Medication Refill Msg I pulled it off fax machine and put on your desk for signature. Addendum by PIERO ROJAS MD on 28 December 2014 17:57:02 CDT From: PIERO ROJAS MD To: [facility] Medication Refill; Sent: 12/28/2014 17:57:02 CDT Subject: RE: *Medication Refill Msg ok done Addendum by FREYA REICH on 28 December 2014 14:29:50 CDT From: FREYA REICH ( [facility] Medication Refill) To: PIERO ROJAS MD; Sent: 12/28/2014 14:29:50 CDT Subject: FW: *Medication Refill Msg From: LUCILA CRAIN LPN To: [facility] Medication Refill; Sent: 12/28/2014 14:26:39 CDT Subject: *Medication Refill Msg Caller is: ( x ) Patient ( ) Mother ( ) Father ( ) Spouse ( ) Daughter ( ) Son ( ) Pharmacy ( ) Other: Provider: [facility] Name of Medications Needing Refill: Novalog insulin Last Refill Date: usually gets through [place], but hasn't heard from them and needs for trip he will be taking next week Additional Information: indicates takes 15 units three times daily with meals Last / Future Appointment:08/09/13/ last A1c 04/18/14-7.8-will be scheduling appointment with Dr. 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 - 03/29/2014 [...] was last seen 08/09/2013. Please advise. Source: [facility] POWERCHART Document Id: [id number] Miscellaneous - Natalee Warren, L.P.N. - 12/28/2013 [...] March for all labs? Please advise. Source: [facility] [employer] Document Id: [id number] Miscellaneous - Vashti Mcintosh L.PMauroN. - 09/23/2013 10:46 AM CST Diabetic Call Document Contains Addenda Addendum by VASHTI MCINTOSH LPN on 28 September 2013 9:22 COILER Start dates changed to 10/20/2013. Addendum by PIERO ROY MD on 26 September 2013 11:46:56 COILER From: PIERO ROY MD To: VASHTI MCINTOSH LPN; Sent: 09/26/2013 11:46:56 COILER Subject: RE: Diabetic Call ok From: VASHTI MCINTOSH LPN To: PIERO ROY MD; Sent: 09/23/2013 10:46:04 COILER Subject: Diabetic Call Patient due for a [...] Please advise. Source: [facility] POWERCHART Document Id: [id number] ER Miscellaneous - Piero Rojas M.D. - 08/09/2013 11:24 AM COILER Ambulatory Patient Summary [address] [address] Visit Information Name: BETH DURANOLAS [facility] Number: [id number] Current Date: 08/09/2013 11:24:00 Physicians [...] appointment detail needed. Your Goals/Additional instructions: Source: [facility] POWERCHART Document Id: [id number] ER Miscellaneous - Piero Rojas M.D. - 08/09/2013 11:23 AM COILER Ambulatory Depart Summary [address] [address] Visit Information Name: BETH DURAN [facility] Number: [id number] Visit Date: 08/09/2013 11:23:59 Attending [...] your provider for clarification. Additional Information: Source: [facility] POWERCHART Document Id: [id number] ER Miscellaneous - Conversion, Historical Provider Ser - 08/09/2013 10:17 AM COILER Ambulatory Vitals Height Weight Ambulatory Vitals Height Weight Entered On: 08/09/2013 10:17 COILER Performed On: 08/09/2013 10:17 COILER by JOSE BAGLEY LPN Vitals/Ht/Wt Systolic Blood Pressure : 138 mmHg Diastolic Blood Pressure : 76 mmHg NIBP Mean : 97 mmHg BP Location : Left upper extremity Blood Pressure Cuff Size : Regular JOSE BAGLEY LPN - 08/09/2013 10:17 COILER Source: [facility] POWERCHART Document Id: [id number] COILER!7 Miscellaneous - Conversion, Historical Provider Ser - 08/09/2013 10:15 AM COILER Adult Circus Artist Intake/History Document Has Been Updated Adult Circus Artist Intake/History Entered On: 08/09/2013 10:17 COILER Performed On: 08/09/2013 10:15 COILER by JOSE BAGLEY LPN Intake Chief Complaint [...] Mass Index : 30.38 kg/m2 JOSE BAGLEY [facility] - 08/09/2013 10:15 COILER General Info Information Given By : Patient Languages : Nicaraguan JOSE BAGLEY [facility] - 08/09/2013 10:15 COILER Subjective Pain Symptoms : No JOSE BAGLEY [facility] - 08/09/2013 10:15 COILER Dependent Habits Tobacco Use/Currently Using : No Tobacco Use/Last 12 months : No Smoking Status : Former smoker JOSE BAGLEY [facility] - 08/09/2013 10:15 COILER Tobacco Use Grid Last Use : former JOSE BAGLEY [facility] - 08/09/2013 10:15 COILER Caffeine Use Grid Caffeine Use : Current Type : Coffee Frequency : Daily JOSE BAGLEY [facility] - 08/09/2013 10:15 COILER Recreational Drug Use Grid Drug Use : None JOSE BAGLEY [facility] - 08/09/2013 10:15 COILER Allergy (As Of: 08/09/2013 10:17:37 COILER) Allergies (Active) doxycycline Estimated Onset Date: Unspecified ; Reactions: severe rash ; Created By: HILARY PASCUAL MD; Reaction Status: Active ; Category: Drug ; Substance: doxycycline ; Type: Allergy ; Updated By: KELLY PASCUAL MD; Reviewed Date: 08/09/2013 10:13 COILER penicillin Estimated Onset Date: Unspecified ; Created By: ALEIDA HEAD LPN; Reaction Status:Active ; Category: Drug ; Substance: penicillin ; Type: Allergy ; Updated By: ALEIDA HEAD LPN; Source: Paper Chart/Abstracting ; Reviewed Date: 08/09/2013 10:13 COILER sulfa drugs Estimated Onset Date: Unspecified ; Created By: ALEIDA HEAD LPN; Reaction Status: Active ; Category: Drug ; Substance: sulfa drugs ; Type: Allergy ; Updated By: ALEIDA HEAD LPN; Source: Paper Chart/Abstracting ; Reviewed Date: 08/09/2013 10:13 COILER Source: [facility] POWERCHART Document Id: [id number] COILER!36 documented in this encounter Plan of Treatment Not on filedocumented as of this encounter Visit Diagnoses Not on filedocumented in this encounter
--- OUTSIDE RECORDS SUMMARY | 2022-05-27 12:14 | XMS_ITS | Encounter Summary ---
:1945 Author Organization [facility] Address [address] [place] [address] Care Team Providers Name Role Phone Unavailable [...] do you attend worship or Never 2021 confucianism services? Do you [...]
--- OUTSIDE RECORDS SUMMARY | 2022-05-27 12:15 | XMS_ITS | Continuity of Care Document ---
:1945 Author Organization [facility] Care Team Providers Name Role Phone [facility] Unavailable Unavailable Problems Combined list of problems from Department of Defense and Veterans Affairs facilities. It does not include entries that were removed or entered in error. Problem Status Onset Problem Type Date of Comments Source Date Resolution Anemia Active Condition [place] [facility] Asthma (SNOMED CT Active Condition [place] [id number]) [facility] Carcinoma of bladder Active Condition [facility] Congestive heart Active Condition [place] failure [facility] CVA - Active Condition Dec 31, [place] Cerebrovascular 2021 Entered V [facility] accident By: CED EPSTEIN Comment: 11/2020, outside hospital. 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 without [facility] Urinary obstruction (ICD-9-CM 600.00) Obesity * (ICD-9-CM Active Condition Sep 09, [place] 278.00) 2012 Entered [facility] By: SAMMY ALEGRIA Comment: 10 TOPIC GRAD 07-09-2012* 244.0 --> 09-17-12* 243.2 lbs Obstructive sleep Active Condition [place] apnea (SNOMED CT [facility] 75762232) Rosacea Active Condition [place] [facility] Tinnitus * (ICD-9-CM Active Condition [place] 388.30) [facility] Type 2 diabetes Active Condition [place] mellitus (SNOMED CT [facility] 98288990) Umbilical hernia Active Condition [place] (SNOMED CT [facility] 843894056) Diagnosis: ICD-10-CM active Diagnosis [place] Z71.89 Other [facility] specified counselingwith Provider Comments: Other specified Counseling Diagnosis: ICD-10-CM active Diagnosis [place] R53.1 Weaknesswith V [facility] Provider Comments: Weakness Diagnosis: ICD-10-CM active Diagnosis [place] Z95.818 Presence of [facility] other cardiac implants and graftswith Provider Comments: Presence of other cardiac implants and grafts Diagnosis: ICD-10-CM active Diagnosis [place] I63.9 [facility]erebral [facility] infarction, unspecifiedwith Provider Comments: Cerebral infarction Diagnosis: ICD-10-CM active Diagnosis [place] M62.81 Muscle [facility] weakness (generalized)with Provider Comments: Muscle Weakness (Generalized) Diagnosis: ICD-10-CM active Diagnosis [place] I63.9 [facility] infarction, unspecifiedwith Provider Comments: CVA - Cerebrovascular accident ([facility] [id number]) Diagnosis: ICD-10-CM active Diagnosis [place] R13.10 Dysphagia, [facility] unspecifiedwith Provider Comments: Dysphagia, unspecified Diagnosis: ICD-10-CM active Diagnosis [place] E11.8 Type 2 [facility] diabetes mellitus with unspecified complicationswith Provider Comments: Type 2 diabetes mellitus ([facility] [id number]) Diagnosis: ICD-10-CM active Diagnosis [place] K08.531 Fractured [facility] dental restorative material with loss of materialwith Provider Comments: Fractured dental restorative material with loss of material Diagnosis: ICD-10-CM active Diagnosis [place] K02.52 Dental caries [facility] on pit and fissure surfc penetrat into dentinwith Provider Comments: Dental caries on pit and fissure surface penetrating into dentin Diagnosis: ICD-10-CM active Diagnosis [place] E11.65 Type 2 [facility] diabetes mellitus with hyperglycemiawith Provider Comments: Type 2 Diabetes Mellitus with Hyperglycemia Diagnosis: ICD-10-CM active Diagnosis [place] Z71.3 Dietary [facility] counseling and surveillancewith Provider Comments: Dietary counseling and surveillance Diagnosis: ICD-10-CM active Diagnosis [place] Z23 Encounter for [facility] immunizationwith Provider Comments: Encounter for Immunization (ICD-10-CM Z23.) Diagnosis: ICD-10-CM active Diagnosis [place] 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 Provider Comments: Type 2 Diabetes Mellitus with Diabetic Nephropathy Diagnosis: ICD-10-CM active Diagnosis [place] H90.3 Sensorineural [facility] hearing loss, bilateralwith Provider Comments: Sensorineural hearing loss, bilateral Diagnosis: ICD-10-CM active Diagnosis [place] E11.8 Type 2 [facility] diabetes mellitus with unspecified complicationswith Provider Comments: Type 2 diabetes mellitus with unspecified complications (ICD-10-CM E11.8) Diagnosis: ICD-10-CM active Diagnosis [place] I50.9 Heart failure, [facility] unspecifiedwith Provider Comments: Congestive heart failure (SNOMED CT 54026600) Medications Combined list of outpatient medications from Department of Defense and Veterans Affairs facilities. Medications provided include 1) outpatient medications from the last 15 months, and 2) patient-reported medications. Medication Details Route Status Patient Prescription Prescription Last Ordering Order Source Instructions Expires Number Dispense Provider Date Date ATORVASTATI TAKE ONE ORALLY DISCONT 06/15/2022 [id number] STOCK,[place] 06/14/ [place] 80MG TABLET INUED 2 ON 2020 [facility] TAB [facility] AT BEDTIME FOR CHOLESTE ROL ATORVASTATI TAKE ONE ORALLY 05/11/2021 [id number] SONG 05/10/ [place] 80MG TABLET 1 ,2019 [facility] TAB [facility] AT BEDTIME FOR CHOLESTE ROL BUDESONIDE INHALE 2 INHALA 2021 [id number] [facility] 07/06/ [place] 160MCG/FORM PUFFS BY TION 1 ,2019 [facility] OTEROL FUM INHALATI HCS 4.5MCG/SPRA ON TWICE Y A DAY INHL,ORAL,1 FOR 0.2GM ASTHMA, TO PREVENT TROUBLE BREATHIN G -RINSE MOUTH AFTER USING CLOPIDOGREL TAKE ONE ORALLY DISCONT 09/01/2022 [id number] STOCK,TYS 08/31/ [place] BISULFATE TABLET INUED 2 ON 2020 [facility] 75MG TAB BY MOUTH HCS EVERY DAY INDEFINI TELY TO PREVENT BLOOD CLOTS and STROKE CLOPIDOGREL TAKE ONE ORALLY 08/03/2021 [id number] [place] 08/04/ [place] BISULFATE TABLET 1 ,2019 [facility] 75MG TAB BY MOUTH HCS EVERY DAY INDEFINI TELY TO PREVENT BLOOD CLOTS and STROKE EMPAGLIFLOZ TAKE ONE ORALLY DISCONT 07/18/2022 [id number] STOCK,TYS 07/19/ [place] IN 25MG TAB TABLET INUED 2 ON 2020 [facility] BY MOUTH [facility] EVERY DAY EMPAGLIFLOZ TAKE ORALLY DISCONT 05/16/2022 [id number] ANKIR ABRAN 05/16/ [place] 25MG TAB ONE-HALF INUED 1 PALLI,ANV 2020 [facility] TABLET (EDIT) ITHA R HCS BY MOUTH EVERY DAY ESCITALOPRA TAKE ONE ORALLY DISCONT 06/15/2022 [id number] STOCK,TYS 06/14/ [place] OXALATE TABLET INUED 1 ON 2020 [facility] 10MG TAB BY MOUTH HCS EVERY DAY FOR MOOD ESCITALOPRA TAKE ONE ORALLY DISCONT 06/27/2021 [id number] [place] 06/27/ [place] OXALATE TABLET INUE 1 ,[place] 2019 [facility] 10MG TAB BY MOUTH HCS EVERY DAY FOR MOOD GLUCOSE 4GM CHEW ORALLY DISCONT 07/10/2022 [id number] STOCK ,TYS 07/11/ [place] TAB,CHEW FOUR INUED 1 ON 2020 [facility] TABLETS HCS BY MOUTH NEEDED FOR LOW BLOOD SUGAR INDOMETHACI TAKE ONE ORALLY DISCONT 09/01/2022 [id number] STOCK,TYS 09/04/ [place] 25MG CAP TO TWO INUED 1 ON 2020 [facility] CAPSULES [facility] BY MOUTH THREE TIMES A DAY NEEDED GOUT EXACERBA TION INSULIN,ASP INJECT SUBCUT DISCONT 05/19/2022 [id number] AN KIREDDY 06/23/ [place] ART,HUMAN 10 UNITS [...] FOR DIABETES INSULIN,ASP INJECT SUBCUT DISCONT 11/17/2021 [id number] S TOCK,TYS 01/16/ [place] ART,HUMAN 10 UNITS ANEOUS INUE 1 ON W 2020 [facility] A 100U/ML,NOV UNDER HCS OLOG,FLEXPE THE SKIN N,3ML BEFORE MEALS WITH SNACKS *TAKE ONLY WITH FOOD INTAKE* INSULIN,GLA INJECT SUBCUT DISCONT 11/23/2022 [id number] S TOCK,TYS 11/23/ [place] RGINE,HUMAN 28 UNITS ANEOUS INUED 2 ON 2021 [facility] 100 UNIT/ML UNDER HCS INJ,SOLOSTA THE SKIN R,3ML AT BEDTIME *DO NOT MIX WITH OTHER INSULINS INSULIN,GLA INJECT SUBCUT DISCONT 11/17/[id number] OCK,TYS 11/17/ [place] RGINE,HUMAN 28 UNITS ANEOUS INUE 1 ON W 2020 [facility] 100 UNIT/ML UNDER HCS INJ,SOLOSTA THE SKIN R,3ML AT BEDTIME *DO NOT MIX WITH OTHER INSULINS ISOSORBIDE TAKE ONE ORALLY DISCONT 05/11/2021 [id number] S [place] 05/10/ [place] MONONITRATE TABLET INUED 1 ,[place] 2019 [facility] 60MG TAB,SA BY MOUTH HCS EVERY MORNING LEVOTHYROXI TAKE ONE ORALLY DISCONT 03/22/2022 [id number] STOCK,TYS 03/22/ [place] NE NA TABLET INUED 2 ON 2020 [facility] 100MCG TAB BY MOUTH HCS (SYNTHROID) EVERY DAY FOR THYROID LOSARTAN TAKE ONE ORALLY DISCONT 11/13/2022 [id number] STO CK,TYS 11/13/ [place] 50MG TAB TABLET INUED 2 ON 2021 [facility] BY MOUTH [facility] EVERY DAY LOSARTAN TAKE ORALLY DISCONT 03/22/2022 [id number] STOCK,TY S 03/22/ [place] 50MG TAB ONE-HALF INUED 2 ON 2020 [facility] TABLET (EDIT) HCS BY MOUTH EVERY DAY METFORMIN TAKE TWO ORALLY DISCONT 04/04/2022 [id number] FE RNANDES 04/04/ [place] HCL 500MG TABLETS INUED 1 -EDITA,AN 2020 [facility] 24HR TAB,SA BY MOUTH DYROSE HCS EVERY MORNING FOR DIABETES METFORMIN TAKE ONE ORALLY DISCONT 03/01/2022 [id number] FE RNANDES 02/28/ [place] HCL 500MG TABLET INUED 1 -EDITA,AN 2020 [facility] 24HR TAB,SA BY MOUTH DYROSE HCS EVERY DAY FOR 7 DAYS, THEN TAKE TWO TABLETS EVERY DAY FOR DIABETES METOPROLOL TAKE ORALLY DISCONT 03/01/2022 [id number] STOCK, TYS 02/28/ [place] SUCCINATE ONE-HALF INUED 2 ON W 2020 [place] [facility] 50MG TAB,SA TABLET HCS BY MOUTH EVERY DAY FOR HEART FAILURE AND BLOOD PRESSURE SEMAGLUTIDE INJECT SUBCUT DISCONT 11/21/2022 [id number] SI BLEY,SH 11/22/ [place] 0.5MG/0.375 0.25MG ANEOUS INUED 2 ALAMAR D 2021 [facility] ML UNDER HCS INJ,SOLN,PE THE SKIN N,1.5ML EVERY WEEK FOR 4 WEEKS, THEN INJECT 0.5MG EVERY WEEK FOR WEIGHT AND TYPE 2 DIABETES TORSEMIDE TAKE ONE ORALLY DISCONT 11/13/[id number] OCK,TYS 11/14/ [place] 20MG TAB TABLET INUED 2 ON 2021 [place] BY MOUTH [facility] EVERY MORNING FOR SWELLING TORSEMIDE TAKE TWO ORALLY DISCONT 03/22/[id number] OCK,TYS 03/22/ [place] 20MG TAB TABLETS INUED 2 ON 2020 [place] BY MOUTH (EDIT) HCS TWICE A DAY FOR SWELLING *TAKE IN MORNING AND AT NOON* TORSEMIDE TAKE TWO ORALLY DISCONT 06/14/[id number] [place] 06/14/ [place] 20MG TAB TABLETS INUED 1 ,[place] 2019 [facility] BY MOUTH (EDIT) HCS EVERY MORNING FOR EDEMA/SW ELLING TRAZODONE TAKE ONE ORALLY DISCONT 06/14/[id number] [place] 06/14/ [place] HCL 100MG TABLET INUED 1 ,[place] 2019 [facility] TAB BY MOUTH [facility] EVERY EVENING NEEDED FOR SLEEP TRAZODONE TAKE ONE ORALLY DISCONT 09/01/[id number] OCK,TYS 08/31/ [place] HCL 50MG TABLET INUED 1 ON W 2020 [facility] TAB BY MOUTH HCS AT BEDTIME NEEDED FOR SLEEP TRAZODONE TAKE ONE ORALLY DISCONT 07/18/[id number] OCK,TYS 07/18/ [place] HCL 50MG TABLET [...] atus Comments Source Given By Number Code Cotton Baler INFLUENZA, complet [place] INJECTABLE, 2020 ed [facility] QUADRIVALENT, HCS PRESERVATIVE FREE COVID-19 2 complet [place] (MODERNA), 2020 ed [facility] MRNA, LNP-S, H CS PF, 100 MCG/0.5 ML DOSE COVID-19 1 complet [place] (MODERNA), 2020 ed [facility] [...] Wyet h [place] CONJUGATE PCV 2014 ed [id number] [facility] 13 exp12/13 HCS INFLUENZA, complet [...] and [place] 2011 ed co. [facility] [id number] HCS 09/17/13 INFLUENZA, complet [place] UNSPECIFIED 2011 ed [facility] FORMULATION HC [facility] INFLUENZA, complet [place] UNSPECIFIED 2010 ed [facility] INFLUENZA, complet [place] UNSPECIFIED 2009 ed [facility] FORMULATION [facility] S NOVEL complet [employer] [place] INFLUENZA-H1N 2009 ed [facility] 10-07, [...] M [place] (HISTORICAL) 2005 ed [facility] [place] HCS Results Combined list of recent chemistry, hematology and other laboratory results from Department of Defense and Veterans Affairs, ranging from 15 months to all on record, depending upon the facility. Order Results Value Reference Date Interpretation Specimen Commen ts Source Name Range COVID-19 SARS-RELAT DETECTED 11/30 HH Specimen Ty pe: NASOPHARYNGEAL [place] AND ED /2021 Comment: [place] GeneXpert (618) IS [facility] FLU/RSV CORONAVIRU Ordering Pro vider: SAHARA CEVALLOS S RNA Report Released Date/Time: Nov 28, 2021 09:05 AM PANEL(CE [PRESENCE] Reporting L ab: [facility] PHEID) IN [address] [facility] [address] RESPIRATOR Performing L ab: [facility] Y SPECIMEN [facility] [address] BY JAYLAN WITH PROBE DETECTION COVID-19 INFLUENZA Not 11/30 Specimen Type : NASOPHARYNGEAL [place] VIRUS A Detected /2021 Comment: [place] GeneXpert (618) IS [facility] FLU/RSV RNA Ordering Provid er: SAHARA CEVALLOS [PRESENCE] Report Relea sed Date/Time: Nov 28, 2021 09:05 AM PANEL(CE IN UPPER Reporting Lab : [facility] PHEID) RESPIRATOR [facility] [address] Y SPECIMEN Performing L ab: [facility] BY JAYLAN [address] [facility] [address] [facility] [address] WITH PROBE DETECTION COVID-19 INFLUENZA Not 11/30 Specimen Type : NASOPHARYNGEAL [place] VIRUS B Detected /2021 Comment: [place] GeneXpert (618) IS [facility] FLU/RSV RNA Ordering Provid er: SAHARA CEVALLOS [PRESENCE] Report Relea sed Date/Time: Nov 28, 2021 09:05 AM PANEL(CE IN UPPER Reporting Lab : [facility] PHEID) RESPIRATOR [facility] [address] Y SPECIMEN Performing L ab: [facility] BY JAYLAN [address] [facility] [address] [facility] [address] WITH PROBE DETECTION COVID-19 RESPIRATOR Not 03/04 Specimen Typ e: NASOPHARYNGEAL [place] AND Y Detected /2021 Comment: [place] GeneXpert (618) IS [facility] FLU/RSV SYNCYTIAL Ordering Prov ider: SAHARA CEVALLOS VIRUS RNA Report Releas ed Date/Time: Nov 28, 2021 09:05 AM PANEL(CE [PRESENCE] Reporting L ab: [facility] PHEID) IN UPPER [address] [facility] [address] RESPIRATOR Performing L ab: [facility] Y SPECIMEN [address] [facility] [address] BY JAYLAN WITH PROBE DETECTION HEMOGLOB HEMOGLOBIN 10.2 4.0 - 6.0 10/11 H Specimen T ype: BLOOD [place] A1C A1C/HEMOGL /2021 No comment en tered. IS [facility] OBIN.TOTAL Ordering Pro vider: LONA PALACIO IN BLOOD Report Release d Date/Time: Jun 14, 2021 10:16 AM Reporting Lab: [facility] [address] [facility] [address] Performing Lab: [facility] [address] [facility] [address] MICROALB CREATININE 19.5 58.0 - 06/14 L Specimen Typ e: URINE [place] UMIN/CRE [MASS/VOLU 161.0 No comment e ntered. IS [facility] ATININE ME] IN Ordering Provid er: LONA PALACIO URINE Report Released Date/Time: Jun 14, 2021 10:15 AM URINE Reporting Lab: [facility] [address] [facility] [address] Performing Lab: [facility] [address] [facility] [address] MICROALB MICROALBUM 324.6 <29.9 - 06/14 H Specimen Typ e: URINE [place] UMIN/CRE IN/CREATIN 29.9 No comment e ntered. IS [facility] ATININE INE [MASS Ordering Prov ider: LONA PALACIO RATIO RATIO] IN Report Releas ed Date/Time: Jun 14, 2021 10:15 AM URINE URINE Reporting Lab: [facility] [address] [facility] [address] Performing Lab: [facility] [address] [facility] [address] MICROALB MICROALBUM 63.3 <29.9 - 06/14 H Specimen Typ e: URINE [place] UMIN/CRE IN . No comment ente red. IS [facility] ATININE [MASS/VOLU Ordering Pro vider: LONA PALACIO RATIO ME] IN Report Released Date/Time: Jun 14, 2021 10:15 AM URINE URINE Reporting Lab: [facility] [place] [address] Performing Lab: [facility] [address] [facility] [address] C-PEPTID C PEPTIDE 2.40 0.80 - 06/14 Specimen Type : SERUM [place] E [MASS/VOLU 3.85 /2020 Comment: Alba t Performed by [employer])[facility] [place], [facility]IG[address] [facility], [address] [place] [address] Jf Crum M.D., Ph.D., Director of Laboratories , [facility] [id number] IS [facility] ME] IN Ordering Provid er: LONA PALACIO SERUM OR Report Release d Date/Time: Jun 14, 2021 10:15 AM PLASMA Reporting Lab: [facility] [address] [facility] [address] Performing Lab: [address] HEMOGLOB HEMOGLOBIN 10.2 4.0 - 6.0 06/14 H Specimen T ype: BLOOD [place] IN A1C A1C/HEMOGL /2020 No comment en tered. IS [facility] OBIN.TOTAL Ordering Pro vider: LONA PALACIO IN BLOOD Report Release d Date/Time: Jun 14, 2021 10:15 AM Reporting Lab: [facility] [place] [address] Performing Lab: [facility] [address] [facility] [address] TSH THYROTROPI 3.83 0.35 - 06/14 Specimen Type : PLASMA [place] W/REFLEX N 4.94 /2020 No comment ente red. IS [facility] TO FREE [UNITS/VOL Ordering Pro vider: LONA PALACIO T4 UME] IN Report Released Date/Time: Jun 14, 2021 10:15 AM SERUM OR Reporting Lab: [facility] PLASMA [place] [address] Performing Lab: [facility] [address] [facility] [address] LIPID CHOLESTERO 127 <199 - 199 06/14 Specimen T ype: PLASMA [place] PANEL,NO L /2020 No comment ente red. IS [facility] N-FASTIN [MASS/VOLU Ordering Pr ovider: LONA PALACIO] IN Report Released Date/Time: Jun 14, 2021 10:15 AM SERUM OR Reporting Lab: [facility] PLASMA [address] [facility] [address] Performing Lab: [facility] [address] [facility] [address] LIPID CHOLESTERO 28 40 06/14 L Specimen Type : PLASMA [place] PANEL,NO L IN HDL /2020 No comment ent ered. IS [facility] N-FASTIN [MASS/VOLU Ordering Pr ovider: LONA PALACIO] IN Report Released Date/Time: Jun 14, 2021 10:15 AM SERUM OR Reporting Lab: [facility] PLASMA [address] [facility] [address] Performing Lab: [facility] [address] [facility] [address] LIPID CHOLESTERO 65 <99 - 99 06/14 Specimen Typ e: PLASMA [place] PANEL,NO L IN LDL /2020 No comment ent ered. IS [facility] N-FASTIN [MASS/VOLU Ordering Pr ovider: LONA PALACIO] IN Report Released Date/Time: Jun 14, 2021 10:15 AM SERUM OR Reporting Lab: [facility] PLASMA BY ONE [facility] [address] CALCULATIO Performing L ab: [facility] N [address] [facility] [address] LIPID CHOLESTERO 34 <29 - 29 06/14 H Specimen Typ e: PLASMA [place] PANEL,NO L IN VLDL /2020 No comment en tered. IS [facility] N-FASTIN [MASS/VOLU Ordering Pr ovider: LONA PALACIO] IN Report Released Date/Time: Jun 14, 2021 10:15 AM SERUM OR Reporting Lab: [facility] PLASMA BY ONE [facility] [address] CALCULATIO Performing L ab: [facility] N [address] [facility] [address] LIPID CHOLESTERO 99 <129 - 129 06/14 Specimen T ype: PLASMA [place] PANEL,NO L NON HDL /2020 No comment en tered. IS [facility] N-FASTIN [MASS/VOLU Ordering Pr ovider: LONA PALACIO] IN Report Released Date/Time: Jun 14, 2021 10:15 AM SERUM OR Reporting Lab: [facility] PLASMA [address] [facility] [address] Performing Lab: [facility] [address] [facility] [address] LIPID TRIGLYCERI 172 <149 - 149 06/14 H Specimen T ype: PLASMA [place] PANEL,NO DE /2020 No comment ente red. IS [facility] N-FASTIN [MASS/VOLU Ordering Pr ovider: LONA PALACIO] IN Report Released Date/Time: Jun 14, 2021 10:15 AM SERUM OR Reporting Lab: [facility] PLASMA [address] [facility] [address] Performing Lab: [facility] [address] [facility] [address] GLUCOSE GLUCOSE 292 74 - 100 06/14 H Specimen Type: PLASMA [place] [MASS/VOLU /2020 No comment en tered. IS [facility] ME] IN Ordering Provid er: LONA PALACIO SERUM OR Report Release d Date/Time: Jun 14, 2021 04:36 PM PLASMA Reporting Lab: [facility] [address] [facility] [address] Performing Lab: [facility] [address] [facility] [address] HEMOGLOB HEMOGLOBIN 8.3 4.0 - 6.0 01/16 H Specimen T ype: BLOOD [place] IN A1C A1C/HEMOGL /2020 No comment en tered. IS [facility] OBIN.TOTAL Ordering Pro vider: MITCHELLVICKI CRUZ IN BLOOD Report Release d Date/Time: Jan 16, 2021 10:53 AM Reporting Lab: [facility] [address] [facility] [address] Performing Lab: [facility] [address] [facility] [address] CREATINI CREATININE 1.6 0.7 - 1.2 0420 H Specimen T ype: PLASMA [place] NE(INCLU [MASS/VOLU /2020 No comment e ntered. IS [facility] [place]] IN Ordering Provid er: VICKI KILLIAN EGFR) SERUM OR Report Release d Date/Time: Jan 16, 2021 10:53 AM PLASMA Reporting Lab: [facility] [address] [facility] [address] Performing Lab: [facility] [address] [facility] [address] CREATINI GLOMERULA 42 60 01/16 L Specimen Typ e: PLASMA [place] NE(INCLU No comment ente red. IS [facility] [place] FILTRATION Ordering Pro vider: STEPHEN-VICKI KOHLER EGFR) RATE/1.73 Report Releas ed Date/Time: Jan 16, 2021 10:53 AM SQ Reporting Lab: [facility] [place] [address] [facility] [address] D [VOLUME Performing La b: [facility] RATE/AREA] [address] [facility] [address] [facility] [address] IN SERUM, PLASMA OR BLOOD BY CREATININE -BASED FORMULA (CKD-EPI) Vital Signs Combined list of inpatient and outpatient Vital Signs from Department of Defense and Veterans Affairs, ranging from 12 months to all on record, depending upon the facility. Vital Sign Value Date Comments Source SYSTOLIC BLOOD PRESSURE 142 12/21/2021 10:36:23 [facility] DIASTOLIC BLOOD PRESSURE 69 12/21/2021 10:36:23 [facility] TEMPERATURE 97.7 12/21/2021 10:36:23 [facility] PULSE 52 12/21/2021 10:36:[address] [place] [facility] SYSTOLIC BLOOD PRESSURE 137 10/11/2021 09:26:36 [facility] DIASTOLIC BLOOD PRESSURE 71 10/11/2021 09:26:36 [facility] PULSE OXIMETRY 97% 10/11/2021 09:26:36 [place] [facility] WEIGHT 214 10/11/2021 09:26:36 [place] [facility] BMI 27kg/m2 10/11/2021 09:26:36 [place] [facility] PAIN 0 10/11/2021 09:26:36 [place] [facility] TEMPERATURE 98.8 10/11/2021 09:26:36 [place] [facility] PULSE 55 10/11/2021 09:26:36 [place] [facility] RESPIRATION 16 10/11/2021 09:26:36 [place] [facility] WEIGHT 222.2 07/03/2021 11:00:00 [place] [facility] BMI 28kg/m2 07/03/2021 11:00:00 [place] [facility] SYSTOLIC BLOOD PRESSURE 130 06/14/2021 09:37:22 [place] [facility] DIASTOLIC BLOOD PRESSURE 69 06/14/2021 09:37:22 [facility] PULSE OXIMETRY 95% 06/14/2021 09:37:22 [...] For Provider Date Date Visit HC PRO 97789-4.61 Diagnos STEPHEN- 11/22 [place] PHONE CALL [phone] is: JAJA KOHLER [facility] 21-30 MIN ICD-10- [facility] CM E11.8 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< br/>wit h Provide r Comment s: Type 2 diabete s mellitu s ([id number] [id number]) Outpatient [id number] 11/27 [place] Encounter [id number] [facility] Outpatient [id number] LUCIANTY[place]ALE 11/28 [place] Encounter [id number] N W [facility] HC PRO 17492-4.61 Diagnos MITCHELL- 11/30 [place] PHONE CALL [phone] is: EDITA, [facility] 21-30 MIN ICD-10- [facility] CM E11.8 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< br/>wit h Provide r Comment s: Type 2 diabete s mellitu s (SCT [id number] 6) Outpatient 86782-7.61 03/11 [place] Encounter [id number] /2020 [facility] Outpatient 48730-5.61 03/16 [place] Encounter [id number] /2020 [facility] HC PRO 62384-0.61 Diagnos MITCHELL- 12/15 [place] PHONE CALL [id number] is: EDITA, [facility] 21-30 MIN ICD-10- [facility] CM E11.8 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< br/>wit h Provide r Comment s: Type 2 diabete s mellitu s (SCT [id number] 6) Outpatient 54214-2.61 03/30 [place] Encounter [id number] /2020 [facility] Outpatient 44413-8.61 03/31 [place] Encounter [id number] /2020 [place] [address]-8.61 Diagnos Fidencio ARANDA 12/28 [place] PH[facility] ADDL [id number] is: HALEY D [facility] 15 MIN ICD-10- HCS CM E11.8 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< br/>wit h Provide r Comment s: Type 2 diabete s mellitu s (SCT [id number] 6) CONT GLUC 63134-4.61 Diagnos MITCHELL- 01/16 [place] MNTR [id number] is: EDITA, [facility] PHYS/QHP ICD-10- [facility] EQP CM E11.8 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< br/>wit h Provide r Comment s: Type 2 diabete s mellitu s (SCT [id number] 6) HEARING 56251-3.61 Diagnos Juana LYNNE 01/29 [place] AID EXAM [id number] is: JANINA LANG [facility] BOTH EARS ICD-10- HCS CM H90.3 Sensori neural hearing loss, bilater al
with Provide r Comment s: Sensori neural hearing loss, bilater al OFFICE O/P 63662-5.61 Diagnos JOSE D DAVILA 02/01 [place] EST HI [id number] is: SEY R /2020 [facility] 40-54 MIN ICD-10- HCS CM E11.8 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< br/>wit h Provide r Comment s: Type 2 diabete s mellitu s (SCT [id number] 6) Outpatient 02256-0 05/ [place] Encounter [id number] /2021 [facility] HC PRO 62323-0 Diagnos MITCHELL- 02/22 [place] PHONE CALL [id number] is: EDITA,MIKEALA [facility] 21-30 MIN ICD-10- [facility] CM E11.8 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< br/>wit h Provide r Comment s: Type 2 diabete s mellitu s (SCT [id number] 6) Outpatient 25558-0 06/01 [place] Encounter [id number] [facility] OFFICE O/P Diagnos JOSE D DAVILA 03/01 [place] EST HI [id number] is: Y R [facility] 40-54 MIN ICD-10- HCS CM E11.8 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< br/>wit h Provide r Comment s: Type 2 diabete s mellitu s (SCT [id number] 6) Outpatient 60462-8.61 06/04 [place] Encounter [id number] /2021 [facility] Outpatient 89231-5. 06/10 [place] Encounter [id number] /2021 [facility] Outpatient 53825-4.61 06/14 [place] En[place] [id number] [facility] Outpatient 70289-6.61 06/17 [place] Encounter [id number] [facility] Outpatient 18239-403/19 [place] Encounter [id number] /2020 [facility] OFFICE O/P Diagnos CONOR EPSTEIN 03/21 [place] EST MOD [id number] is: N W [facility] 30-39 MIN ICD-10- HCS CM I50.9 Heart failure , unspeci fied
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< br/>wit h Provide r Comment s: Type 2 diabete s mellitu s (SCT [id number] 6) HC PRO Diagnos MITCHELL- 04/18 [place] PHONE CALL [id number] is: EDITA,MIKAELA [facility] 21-30 MIN ICD-10- [facility] CM E11.8 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< br/>wit h Provide r Comment s: Type 2 diabete s mellitu s (SCT [id number] 6) Outpatient 68507-804/19 [place] Encounter [id number] [facility] Outpatient 50516-404/19 [place] Encounter [id number] /2021 [facility] SELF-MGMT 22089-6.61 Diagnos SAHARA,LATANYA 05/14 [place] EDUC & [id number] is: AEL F [facility] TRAIN 1 PT ICD-10- HCS CM H90.3 Sensori neural hearing loss, bilater al
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
with Provide r Comment s: Type 2 Diabete s Mellitu s with Diabeti c Nephrop athy MEDICAL 97301-461 Diagnos DAVID TO 07/03 [place] NUTRITION [id number] is: RLY K [facility] INDIV IN ICD-10- HCS CM Z71.3 Dietary tariff counsel ing and surveil rosalba<b r/>with Provide r Comment s: Dietary tariff counsel ing and surveil rosalba IMMUNIZATI 57037-061 Diagnos DAVID TO 07/03 [place] ON ADMIN [id number] is: RLY K [facility] ICD-10- HCS CM Z23 Encount er for immuniz ation<b r/>with Provide r Comment s: Encount er for Immuniz ation (ICD-10 -CM Z23.) Outpatient 76469-5.61 10/ [place] Encounter [id number] [facility] Out[facility] 87618-8.61 07/17 [place] Encounter [id number] /20[place] [place] [address]-6.61 Diagnos BALDO, 07/17 [place] DIG [id number] is: LEONOR K /2020 [facility] ASSMT&MGMT ICD-10- HCS 5-10 CM E11.8 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< br/>wit h Provide r Comment s: Type 2 diabete s mellitu s (SCT [id number] 6) Outpatient 11611-2.61 07/19 [place] En[facility] [id number] [facility] MED 04813-3.61 Diagnos JIM TOBE 08/14 [place] NUTRITION [id number] is: RLY K /2020 [facility] INDIV ICD-10- HCS SUBSEQ CM Z71.3 Dietary tariff counsel ing and surveil rosalba<b r/>with Provide r Comment s: Dietary tariff counsel ing and surveil rosalba ORAL 13840-0.61 Diagnos EGGEBRAATE 08/31 [place] HYGIENE [id number] is: NCLAIRE T /2020 [facility] INSTRUCTIO ICD-10- [facility] N CM K02.52 Dental caries on pit and fissure surfc penetra t into dentin< br/>wit h Provide r Comment s: Dental caries on pit and fissure surface penetra ting into dentin Outpatient 07186-4.61 09/07 [place] Encounter [id number] [facility] Outpatient 71756-1.61 10/10 [place] Encounter [id number] [facility] OFFICE O/P 36892-7.61 Diagnos LAMAR PALACIO 10/11 [place] EST MOD [id number] is: ILANA D /2021 [facility] 30-39 MIN ICD-10- HCS CM 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< br/>wit h Provide r Comment s: Type 2 Diabete s Mellitu s with Hypergl ycemia Outpatient 46097-9.61 10/19 [place] Encounter [id number] [facility] HC PRO 78374-0.61 Diagnos OMBERG,RUDDY 10/24 [place] PHONE CALL [id number] is: I M /2021 [facility] 21-30 MIN ICD-10- HCS CM E11.8 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< br/>wit h Provide r Comment s: Type 2 diabete s mellitu s (SCT [id number] 6) Outpatient 96194-0.61 11/09 [place] Encounter [id number] /2021 [facility] Outpatient 78537-9.61 11/12 [place] Encounter [id number] /2021 [facility] HC PRO 62067-9.61 Diagnos [facility] 11/21 [place] PHONE CALL [id number] is: I M [facility] 5-10 MIN ICD-10- HCS CM E11.8 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< br/>wit h Provide r Comment s: Type 2 diabete s mellitu s (SCT [id number] 6) Outpatient 84731-8.61 11/26 [place] Encounter [id number] /2021 [facility] ADJUNCTIVE 85444-9.61 Diagnos EGGEBRAATE 11/30 [place] PROCEDURE [id number] is: NCLAIRE T /2021 [facility] ICD-10- HCS CM K02.52 Dental caries on pit and fissure surfc penetra t into dentin< br/>wit h Provide r Comment s: Dental caries on pit and fissure surface penetra ting into dentin Outpatient 88314-4.61 12/04 [place] Encounter [id number] /2021 [facility] HC PRO 27672-1.61 [facility] 12/18 [place] PHONE CALL [id number] is: I M /2021 [facility] 11-20 MIN ICD-10- HCS CM E11.8 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< br/>wit h Provide r Comment s: Type 2 diabete s mellitu s (SCT [id number] 6) Outpatient 13097-2.61 12/21 [place] Encounter [id number] [facility] LIMIT ORAL 44288-9.61 Diagnos EGGEBRAATE 12/21 [place] EVAL [id number] is: CLAIRE Reyez T /2021 [facility] PROBLM ICD-10- [facility] FOCUS CM K08.531 Fractur ed dental restora tive materia l with loss of materia l
w ith Provide r Comment s: Fractur ed dental restora tive materia l with loss of materia l Outpatient 90892-9.61 12/27 [place] Encounter [id number] /2021 [facility] Outpatient 98232-1.65 12/28 ST. Encounter [id number] /2021 [facility] Outpatient 03668-0.61 12/31 [place] Encounter [id number] /2021 [facility] Outpatient 05334-1.65 12/31 ST. Encounter [id number] /2021 [facility] Outpatient 50098-1.61 12/31 [place] Encounter [id number] /2021 [facility] Outpatient 56952-7.61 WILDER FLORENCE 12/31 [place] Encounter [id number] THAN C /2021 [facility] Outpatient 72970-6.61 Diagnos Fidencio HENDERSON 12/31 [place] Encounter [id number] is: MAKENNA J /2021 [facility] ICD-10- HCS CM M62.81 Muscle weaknes s (genera lized)< br/>wit h Provide r Comment s: Muscle Weaknes s (Genera lized) Outpatient 96978-7.61 01/01 [place] Encounter [id number] /2021 [facility] Outpatient 16796-8.61 01/02 [place] Encounter [id number] /2021 [facility] Outpatient 60468-9.61 Diagnos Fidencio HENDERSON 01/03 [place] Encounter [id number] is: MAKENNA J /2021 [facility] ICD-10- HCS CM M62.81 Muscle weaknes s (genera lized)< br/>wit h Provide r Comment s: Muscle Weaknes s (Genera lized) CASE 49641-5.61 Diagnos GISELA REBOLLAR 01/04 [place] MANAGEMENT [id number] is: EE J /2021 [facility] ICD-10- HCS CM E11.8 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< br/>wit h Provide r Comment s: Type 2 diabete s mellitu s ([facility] [id number] 6) Outpatient 16027-0.61 01/09 [place] Encounter [id number] [facility] Outpatient 50909-6.61 01/10 [place] En[place] [id number] [facility] Outpatient 94936-5.61 01/17 [place] Encounter [id number] [facility] HC PRO 70181-561 Diagnos SA GERMAN 01/21 [place] PHONE CALL [id number] is: NDRA L /2021 [facility] 5-10 MIN ICD-10- HCS CM I63.9 Cerebra l infarct ion, unspeci fied
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
with Provide r Comment s: Dysphag ia, unspeci fied Outpatient 56615-761 Diagnos Fidencio HENDERSON 01/25 [place] Encounter [id number] is: MAKENNA J /2021 [facility] ICD-10- HCS CM M62.81 Muscle weaknes s (genera lized)< br/>wit h Provide r Comment s: Muscle Weaknes s (Genera lized) Outpatient 60913-2.61 01/30 [place] Encounter [id number] [facility] Outpatient 83220-7.61 02/04 [place] Encounter [id number] /2021 [facility] REM 58108-361 Diagnos GERMAN,SA 02/05 [place] INTERROG [id number] is: NDRA L /2021 [facility] DEV EVAL ICD-10- HCS SCRMS CM I63.9 Cerebra l infarct ion, unspeci fied
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 ([facility] [id number] ) Outpatient 29656-2.61 02/06 [place] Encounter [id number] /2021 [facility] Outpatient 85062-8.61 02/07 [place] Encounter [id number] /2021 [facility] Outpatient 26471-8.61 02/12 [place] Encounter [id number] /2021 [facility] Outpatient 16615-5.61 02/18 [place] Encounter [id number] /2021 [facility] Outpatient 75543-8.61 02/19 [place] Encounter [id number] /2021 [facility] Outpatient 05798-1 Diagnos FAPORTER,E 02/19 [place] Encounter [id number] is: MAKENNA J /2021 [facility] ICD-10- HCS CM M62.81 Muscle weaknes s (genera lized)< br/>wit h Provide r Comment s: Muscle Weaknes s (Genera lized) Outpatient 64300-5.61 02/21 [place] Encounter [id number] /2021 [facility] Outpatient 28095-2.61 02/28 [place] Encounter [id number] /2021 [facility] Outpatient 88603-7.61 02/28 [place] Encounter [id number] /2021 [facility] REM 77849-3.61 Diagnos FASHINGBAU 03/01 [place] INTERROG [id number] is: ANISA HANSON /2021 [facility] EVAL ICD-10- T HCS SCRMS CM I63.9 Cerebra l infarct ion, unspeci fied
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
w ith Provide r Comment s: Weaknes s Outpatient 39129-3.61 06/ [place] Encounter [id number] /2021 [facility] Outpatient 24311-1.61 03/25 [place] Encounter [id number] /2021 [facility] Outpatient 01705-5.61 03/26 [place] Encounter [id number] /2021 [facility] Outpatient 47420-3.61 07 [place] Encounter [id number] /2021 [facility] Outpatient 12997-0.61 04/15 [place] Encounter [id number] /2021 [facility] Outpatient 98634-0.61 Diagnos SANTIAGO,E 04/19 [place] Encounter [id number] is: MAKENNA J /2021 [facility] ICD-10- HCS CM M62.81 Muscle weaknes s (genera lized)< br/>wit h Provide r Comment s: Muscle Weaknes s (Genera lized) REM 31708-8.61 Diagnos ZHOU,L 04/23 [place] INTERROG [id number] is: NAOMI /2021 [facility] DEV EVAL ICD-10- HCS SCRMS CM I63.9 Cerebra l infarct ion, unspeci fied
with Provide r Comment s: Cerebra l infarct ion Outpatient 13599-0.61 04/23 [place] Encounter [id number] /2021 [facility] REM 27565-4.61 Diagnos FASHINGBAU 04/29 [place] INTERROG [id number] is: YENIFER HANSONARE /2021 [facility] DEV EVAL ICD-10- T HCS SCRMN CM Z95.818 Presenc e of other cardiac implant s and grafts< br/>wit h Provide r Comment s: Presenc e of other cardiac implant s and grafts WHEELCHAIR 07718-4.61 Diagnos SHUN THURSTON 05/06 [place] MNGMENT [id number] is: D R [facility] TRAINING ICD-10- HCS CM R53.1 Weaknes s
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 Social History Type Response Date Comment Source Tobacco smoking status VA-TOBACCO FORMER USER 06/13/2020 [facility] History of tobacco use NM-TOBACCO QUIT 15 YRS 06/13/2020 [facility] History of tobacco use VA-TOBACCO QUIT 15 YRS 05/20/2019 [facility] History of tobacco use VA-TOBACCO FORMER USER 07/30/2018 [facility] History of tobacco use FORMER TOBACCO USER 7Y 08/25/2017 [facility] History of tobacco use FORMER TOBACCO USER 7Y 11/08/2016 [facility] History of tobacco use FORMER TOBACCO USER 7Y 11/29/2015 [facility] History of tobacco use FORMER TOBACCO USER 7Y 02/23/2015 [facility] History of tobacco use FORMER TOBACCO USER 7Y 01/27/2014 [facility] History of tobacco use FORMER TOBACCO USER 7Y 03/17/2007 [facility] Advance Directives List of completed, amended, or rescinded Advance Directives on record at Department of Veterans Affairs facilities. An actual copy of the Directive is not included. Date Advance Directive Provider Source 03/17/2007 ADVANCE DIRECTIVE ALBERTO RODRIGUEZ [facility]
--- OUTSIDE RECORDS SUMMARY | 2022-05-27 12:21 | XMS_ITS | Encounter Summary ---
:1945 Author Organization [employer] Address [address] [address] Phone Care Team Providers Name Role Phone Unavailable Primary Care Provider Unavailable Reason for Visit Reason Comments Fall Head Laceration Encounter Details Date Type Department Care Team Description 03/09/2019 Emergency [facility], Rusty Nguyen MD Closed head injury, initial encounter (P rimary Dx); Center Emergency [address] Facial laceration, initial encounter; Department [facility] Abrasion of right knee, initial encounte r; [address] [place] [address] Chest wall contusion, right, initial enc ount [place] [address] [phone] Social History Tobacco Use Types Packs/Day Years [...] sent through Care Everywhere. Chest Wall Contusion (Micronesian)Head Injury (Adult) (Micronesian)Laceration, Face: Stitches or Tape (Micronesian)Laceration, Extremity: Skin Glue (Micronesian)documented in this encounter Medications at Time of Discharge Medication Sig Dispensed Refills Start Date End Date clopidogrel (Plavix) 75 MG Take 1 Tablet by 0 09/2015 tablet mouth every afternoon. escitalopram (Lexapro) 10 Take 10 mg by mouth 0 0 04/28/2018 MG tablet every afternoon. documented as of this encounter Discharge Disposition Disposition Code Departure Means Destination Home and/or Self Jail documented in this encounter ED Notes Gurmeet [...] Bryan RN at 03/09/2019 7:27 PM pancrelipase, [id number], ([id number]) 45915 UNIT Capsule Delayed Release Particles Take 1 [...] Disposition: ED Disposition ED Disposition Comment Discharge [facility] thanks you for allowing us to assist you with your healthcare needs. This document contains patient education materials and information regarding your injury/illness. *If you need copies of your x-rays for a f ollow up appointment please call [phone] to arrange for apple picking supervisor. If you had an IV in place [...]
--- OUTSIDE RECORDS SUMMARY | 2022-05-27 12:21 | XMS_ITS | Encounter Summary ---
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
--- OUTSIDE RECORDS SUMMARY | 2022-05-27 12:21 | XMS_ITS | Encounter Summary ---
:1945 Author Organization [employer] Address [address] [address] Phone Care Team Providers Name Role Phone [...]
--- OUTSIDE RECORDS SUMMARY | 2022-05-27 12:21 | XMS_ITS | Encounter Summary ---
:1945 Author Organization [employer] Address [address] [address] Phone Care Team Providers Name Role Phone [...]
--- OUTSIDE RECORDS SUMMARY | 2022-05-27 12:21 | XMS_ITS | Encounter Summary ---
:1945 Author Organization [employer] Address [address] [address] Phone Care Team Providers Name Role Phone Unavailable Primary Care Provider Unavailable Reason for Visit Reason Comments Fall Encounter Details Date Type Department Care Team Description 03/09/[address] [facility]-Josiah Khan cause of URGENT CARE MD [place] morbidity or mortality [address] (Primary Dx) [place] [address] [place] [phone] [address] Social History Tobacco Use Types Packs/Day [...] on a blood thinner. Per Dr Gentile report writer advised patient to present to the ER. Patient was given gauze and cleaned up by report writer before leaving urgent care. documented in this encounter Plan of Treatment Not on filedocumented as of this encounter Visit Diagnoses Diagnosis Unknown cause of morbidity or mortality - Primary Other unknown and unspecified cause of m orbidity or mortality documented in this encounter
--- OUTSIDE RECORDS SUMMARY | 2022-05-27 12:21 | XMS_ITS | Encounter Summary ---
:1945 Author Organization [employer] Address [address] [address] Phone Care Team Providers Name Role Phone Unavailable Primary Care Provider Unavailable Reason for Visit Reason Comments Cerebral Vascular Accident Auth/Cert Specialty Diagnoses / Procedures Referred By Contact Refer red To Contact Diagnoses TIA (transient ischemic attack) Elevated troponin Transient ischemic attack [address] [facility] [address] [place] [address] [place] [address] Referral ID Status Reason Start Date Expiration Date Visits Requ ested Visits Authorized [id number] 1 1 Encounter Details Date Type Department Care Team Description [facility] [address] [place] [address] [place], [place] [address] TIA (transient ischemic attack) (Primary Dx); 12/24/2021 [facility] Holly Owen MD [address] [place] [address] [phone] Elevated troponin; [address] [place] [address] Malachi Alves, SUPERVISOR WHITE SUGAR, SOCIAL WORK ASSISTANT [address] [place] [address] [phone] 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 Recommend level tested at [facility] ?? Elevated troponin level -??0.377-->0.362-->0.310-->0.283 no chest [...] a stress test as outpatient with his paving bed maker at [facility]. Plan of care reviewed with Dr. Natasha Lopez. ?? Mr. D eSantiago was wanting to leave after he was [...] heart failure with preserved ejection fraction (HFpEF) ([facility]) no increased dyspnea or edema. Appears to be euvolemic. ??Troponin elevated as above. -??Continue usual medications of ASA, Lipitor, Plavix, losartan, metoprolol and torsemide. ?Type 2 diabetes mellitus with hyperglycemia, with long-term current use of insulin ([facility]) - checks his glucose levels 4-5 times per day and has insulin SS and basal. Recently started Ozempic ( questioning the of thuseis medication with hx of pancreatitis) - and on SGLT2 A1C 9.6% (12/24/2021) Fasting glucose 184 Pre-meal glucose 283 -will continue on SLATE ROOFER HELPER medications and follow-up with PCP ?Essential hypertension -??continue losartan and metoprolol. ??No prn medications unless BP >??180/100 for permissive HTN. ?Stage 3b chronic kidney disease (HCC) - creatine on presentation 1.58. appears to be at his baseline. ??Follow with diuretic use. ?? Diagnostic Studies: Labs: See labs in [facility] from 12/23/2021 - 12/24/2021 Microbiology: Covid, negative Imaging/cardiac graphics: Ct head, CT angio head/neck, MRI, ECHO Procedures this admission: none Consult/s: IP CONSULT TO [facility] TELE-STROKE IP CONSULT HF INPATIENT CASE MANAGEMENT BRD IP CONSULT TO [facility] TELE-STROKE IP CONSULT TO STRAW HAT BRIM RAISER OPERATOR IP CONSULT TO CARDIOLOGY, see notes for full details of consult Discharge Instructions: Follow up appointment with Primary Care Physician: No primary care provider on file. within 3 work days. Follows with [facility] in [place] and has appointment scheduled for December 27. [...] with patient and family. Malachi Alves CNP [facility] Medicine Service Please CC/route this note in EPIC to No primary care provider on file. documented in this encounter Discharge Instructions InstructionsMoMalachi bliss APRN, CNP - 12/24/2021 9:57 AM CDT Neurology is recommending a 30 day Holter monitor that will be mailed to you Follow-up with you primary care provider as scheduled on December 27 at the [facility] Follow-up with neurology within one month Follow-up with cardiology in one month AttachmentsThe following attachments cannot be sent through Care Everywhere. Stroke, What is Ischemic (Uzbek)documented in this encounter Medications at Time of [...] Code Departure Means Destination Home and/or Self Long Term documented in this encounter Progress Notes Yesenia [...] Franco PharmD - 12/24/2021 3:59 PM CDT SLATE ROOFER HELPER Medication History obtained by: Estelle Franco PharmD Home medication list updated using: SLATE ROOFER HELPER med list, patient, spouse ([employer]- [phone]), Outpatient Pharmacy ([facility]) Faxed Medication List and Care Everywhere (Organization: [facility]) Spoke with the patient? Yes Name of [...] you, Estelle Franco, PharmColeman 12/24/2021, 3:59 PM Luiz Washington MD - 12/24/2021 3:46 PM CDT [facility] TELESTROKE NEUROVASCULAR SUMMARY Beth Duran 1945 Date of service 12/24/2021 The type of service provided: Telehealth visit conducted via interactive videoconference. The time the service began and the time the service ended: [phone]. A description of the provider???s basis for determining that telemedicine is an appropriate and effective means for delivering service to the recipient: Defined by policy and procedure documents. The mode of transmission of the telemedicine service: Interactive videoconference. The location of the originating and the distant sites: Originating Site (Patient Location): [facility] Distant Site (Provider Site): [place], [place]. This is a 76 year old male who was admitted to [facility] for ischemic strokes in multiple vascular territories. [...] on monitor. NEUROLOGICAL: NIHSS 0. Admission modified Bullock Scale: 1 Discharge modified Tracy Scale: 1 [...] with neurology as outpatient. Luiz Washington MD [facility] Telestroke Counseling/Coordination of care 20 minutes [...] heart failure with preserved ejection fraction (HFpEF) ([facility]) Procedures/Diagnostics Affecting Therapy: Hx of CHF Barriers [...] Function/Coordination: Dominant Hand: Right Bilateral coordination and biochemistry technician strength is Within function limits. Activities of [...] and plan of care discussed with nursing, patient case manager/party planner and PT. Frequency of Occupational Therapy Recommended: Evaluation Only Planned interventions may consist of any combination of the following: ?? ADL retraining Duration of Services: Acute care Occupational Therapy will continue until patient has met prior level of function, safety/independence, or is discharged from the facility. OT Total Treatment Time: 20min Evaluation Low - Complexity (11233) Tammy Lorenz MA, OTR/L WinYu mcfarlane PT [...] heart failure with preserved ejection fraction (HFpEF) ([facility]) Procedures/Diagnostics Affecting Therapy: Barriers to Learning: ?? [...] discussed with nursing, physician/advanced practice provider andcase assistant banquet manager/party planner. Frequency of Physical Therapy Recommended: Evaluation [...] 20 minutes ?? Evaluation Low - Complexity (89485) Yu Pike PT Philly Crain MA, CCC/SCRAP HOOKER - 12/24/2021 9:24 AM CDT SCRAP HOOKER COURTESY NOTE Orders received for SCRAP HOOKER to eval and treat per stroke assessment [...] baseline with no deficits. Philly Crain MA, CCC/SCRAP HOOKER documented in this encounter H&P Notes Holly [...] heart failure with preserved ejection fraction (HFpEF) ([facility]) 12/24/2021 ??? Acute on chronic heart failure with preserved ejection fraction (HFpEF) ([facility]) 02/25/2021 ??? Stage 3b chronic kidney disease ([facility]) 02/25/2021 ??? Moderate asthma with acute exacerbation 02/25/2021 ??? Acute respiratory failure with hypoxia ([facility]) 02/25/2021 ??? Essential hypertension 02/25/2021 ??? Insulin dependent type 2 diabetes mellitus ([facility]) 02/25/2021 ??? Diabetic neuropathy ([facility]) 02/25/2021 ??? Type 2 diabetes mellitus with hyperglycemia, with long-term current use of insulin ([facility]) 02/25/2021 HPI: This 76 yo male with a PMH significant for CKD-3b, asthma, HFpEF, hyperlipidemia, HTN, hypothyroidism and DM-2 on insulin with prior episodes of TIA-like symptoms presented to the ER via EMS afterhe experienced about 30 minutes of visual field deficit and right arm and leg weakness the evening SLATE ROOFER HELPER. He had been feeling fine throughout the [...] Depression Father ??? Cardiovascular Disease Father of [place] ??? Asthma Sister ??? Asthma Brother ??? Depression Brother ??? Asthma Son He indicated that his mother is . He indicated that his father is . He indicated that his sister is alive. He indicated that his brother is alive. He indicated that his son is alive. Social History Social History Narrative , lives with his in their own home in [place]. They have 2 biological daughters, an adopted daughter and an adopted son and 9 grandchildren. 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 They have a [place] home near [place]. 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 Review of Systems Constitutional: Positive for fatigue. Negative for activity change, appetite change, chills and fever. [place] more tired than usual the day of [...] IP CONSULT TO CARDIOLOGY Cardiology Consultation Site: [facility] Chief Complaint: Chief Complaint Patient presents with [...] terms of CHF. He does have a paving bed maker at [facility] in [place], [place]. Patient resides in [place], [place], has alake home here in [facility]. Past Medical History: Past Medical History: Diagnosis [...] Depression Father ??? Cardiovascular Disease Father of [place] ??? Asthma Sister ??? Asthma Brother ??? [...] real-time polymerase chain reaction (PCR) on the [employer] GeneXpert System. Results should be used in [...] for this test can be found at: https://www.fda.gov/medical-devices/zhughhrhk-rqnxrvyist-ucefufb-devices/emergen kp-fuw-bfudxcyakgrboo TROPONIN I Result Value Ref Range Troponin [...] repeat testing for the diagnosis of diabetes. [place] [employer] 2018 ?? LIPID PANEL Result [...] a stress test as outpatient with his paving bed maker at [facility]. Plan of care reviewed with Dr. Natasha [...] 9:41 AM CDTAssociated Order(s): IP CONSULT TO STRAW HAT BRIM RAISER OPERATOR Discharge Planning Assessment Beth Duran is a 76 year old male with diagnosis of TIA (transient ischemic attack) [G45.9] Elevated troponin [R77.8] Transient ischemic attack [G45.9] Met with patient and explained the role of the party planner as part of the care team as well asthe discharge planning process. Prior Living Arrangements Type of Residence: home Living Arrangements: lives with spouse Care Facility Name: n/a Pharmacy (If Applicable): [facility] Current Home Services: none noted Current DME Agency: none noted Psychosocial needs Support System: family Hazardous Materials Waste Technician/Pan Cleaner/Lead Systems Engineer: none noted Health Care Agent/Guardian/POA/Conservator: pt is [...] pt said he is service connected Insurance: [facility] Medicare and pt said he has VA coverage Financial Concerns: none noted Readmission/LACE Score Current LACE score: 6 Readmission within 30 days? no Any known issues related to readmission? no Discharge Disposition Plan Patient/family preference for discharge: home when able Community Resource brochure given: offered and declined Community Greens Keeper referral offered if appropriate: n/a How patient [...] benefit with Medicare Written Information Provided: ?? Health Your Outpatient Observation Stay handout (Y/N) yes ?? Self-Administered Drug handout (Y/N) yes - (required with Medicare and Medicare Replacement Cost plans) The patient and/or parts sales representative were provided the opportunity to ask questions, which were addressed. *The pt was informed to call Medicare directly for additional questions, or call the business officeif they receive a bill and continue to have questions. Maria E Laguna MD - 12/24/2021 12:38 AM CDTAssociated Order(s): IP CONSULT TO [facility] TELE-STROKE [facility] TELESTROKE CODE CONSULTATION: TODAY'S DATE: 12/24/2021 PATIENT NAME: Beth Duran DATE OF : 1945 History of Present Illness: This is a 76 year old male who I am asked to see via telestroke in the ER at [facility] in [place] at the request of Filemon Conrad MD;[place]on* [...] Depression Father ??? Cardiovascular Disease Father of [place] ??? Asthma Sister ??? Asthma Brother ??? [...] - symptoms resolved [facility] As the provider for this [...] as well. - Originating site (patient location): [facility] ED - Distant site (telehealth provider location): [place] Telestroke/Teleneurology Service Provider's residence - Video start [...] from the original note were not included. [facility] Emergency Physician Note Date: 12/24/21 Patient Name: [...] the ground. He was then watching the [employer] [employer] women's basketball tournament when he noticed that [...] Sensation to light touch intact throughout. Normal ogrmqr-nw-fwdn testing bilaterally. Psych: Appropriate mood and affect [...] Normal sinus rhythm, first-degree AV block with UT interval 226 ms, PVCs present in a [...] Emergency Medicine Filemon Conrad MD 12/24/2131 Asael Wlison [facility] - 12/23/2021 11:[address] [...] with mepilex. Small abrasion to left clavicle. CHIGNIK LAGOON. Will go home with when medically able. [...] Troponin I 0.283 (H) 0.000 - 12/24/2021 [facility] 0.028 3:00 PM CDT [facility] ng/mL LABORATORY Specimen Anatomical Collection Method / Collection Time Recei pee Time (Source) Location / Volume Laterality Blood BLOOD SPECIMEN / Venipuncture / 12/24/2021 2:35 2021 2:37 Unknown Unknown PM CDT PM CDT Narrative [facility] LABORATOR Y - 12/24/2021 3:00 PM CDT Because no pediatric reference range alhaji a is published, the adult reference range will be utilized as this represents 99% of healthy adults. Malachi Alves SUPERVISOR WHITE SUGAR, SOCIAL WORK ASSISTANT EC CHEMISTRY ORDERABLES Performing Organization Address City/State/ZIP Code Phon e Number [facility] [address] [address] LABORATORY MR BRAIN WO CONTRAST (12/24/2021 [...] Gage MD 12/24/2021 2:15 PM Malachi Alves SUPERVISOR WHITE SUGAR, SOCIAL WORK ASSISTANT EC MRI ORDERABLES (ABNORMAL) GLUCOSE, METER (12/24/2021 11:11 AM CDT) P athologist Signature Glucose Meter 283 (H) 70 - 99 12/24/[address] mg/dL 11:17 AM CDT [facility] POINT OF CARE Specimen Anatomical Collection Method Collection Time Receive d Time (Source) Location / / Volume Laterality Blood BLOOD SPECIMEN / 12/24/2021 11:11 022 Unknown AM CDT 11:17 AM CDT Malachi Alves SUPERVISOR WHITE SUGAR, SOCIAL WORK ASSISTANT EC CHEMISTRY ORDERABLES Performing Organization Address City/State/ZIP Code Phon e Number [facility] [address] [address] POINT OF CARE ECHO ADULT COMPLETE W CONTRAST (12/24/2021 11:05 AM CDT) [facility] gist Method Time Signature RESULT [facility] XC ELERA [address] [address] ? Transthoracic Echocardiogram Report Name: BETH DURAN Aissatou ? Study Date: 12/24 ? Performing Location: JESSE : 1945 ? Gender: Male Height: 72 [...] (indexed): 25.0 ? Interpreting Physician: ? Location: [place] Inpatient Specimen (Source) Anatomical Location Collection Method / Collectio n Time Received Time / Laterality Volume 12/24/2021 Holly Owen MD CV ECHO PROCEDURES Performing Organization Address City/[facility]/ZIP Code Phon e Number XC[facility] (ABNORMAL) TROPONIN I (12/24/2021 8:07 AM CDT) athologist Signature Troponin I 0.310 (H) 0.000 - 12/24/2021 [facility] 0.028 8:37 AM T [facility] ng/mL LABORATORY Specimen Anatomical Collection Method / Collection Time Recei pee Time (Source) Location / Volume Laterality Blood BLOOD SPECIMEN / Venipuncture / 12/24/2021 8:07 2021 8:11 Unknown Unknown AM CDT AM CDT Narrative [facility] LABORATOR Y - 12/24/2021 8:37 AM CDT Because no pediatric reference range alhaji a is published, the adult reference range will be utilized as this represents 99% of healthy adults. Holly Owen MD EC CHEMISTRY ORDERABLES Performing Organization Address City/State/ZIP Code Phon e Number [facility] [address] [address] LABORATORY (ABNORMAL) GLUCOSE, METER (12/24/2021 6:32 AM CDT) P athologist Signature Glucose Meter 184 (H) 70 - 99 12/24/2021 ST. mg/dL 6:38 AM CDT [facility] POINT OF CARE Specimen Anatomical Collection Method Collection Time Receive d Time (Source) Location / / Volume Laterality Blood BLOOD SPECIMEN / 12/24/2021 6:32 AM 12/24 6:38 Unknown CDT AM CDT Holly Owen MD EC CHEMISTRY ORDERABLES Performing Organization Address City/State/ZIP Code Phon e Number [facility] [address] [place] [address] POINT OF CARE (ABNORMAL) LIPID PANEL (12/24/2021 6:12 AM CDT) [facility] gist Method Time Signature Cholesterol 125 114 - 200 12/24/2021 ST. mg/dL 6:49 AM CDT [facility] LABORATORY HDL Cholesterol 28 (L) 40 - 60 12/24/2021 ST. mg/dL 6:49 AM CDT [facility] LABORATORY Triglycerides 156 10 - 200 12/24/2021 ST. mg/dL 6:49 AM CDT [facility] LABORATORY LDL Cholesterol, 66 mg/dL 12/24/2021 ST. Calculated 6:49 AM CDT [facility] LABORATORY Specimen Anatomical Collection Method / Collection Time Recei pee Time (Source) Location / Volume Laterality Blood BLOOD SPECIMEN / Venipuncture / 12/24/2021 6:12 2021 6:31 Unknown Unknown AM CDT AM CDT Narrative [facility] LABORATOR Y - 12/24/2021 6:49 AM CDT [...] EC CHEMISTRY ORDERABLES ABN Performing Organization Address City/[facility] Phon e Number [facility] [address] [place] [address] 401 LABORATORY (ABNORMAL) HEMOGLOBIN A1C (12/24/2021 6:12 AM CDT) Analysis Performed At Patho logist Time Signature Hemoglobin A1c 9.6 (H) 4.0 - 5.6 12/24/2021 ST. % 7:29 AM T [facility] LABORATORY Estimated 229 mg/dL 12/24/2021 [facility] Average Glucose 7:29 AM [facility] LABORATORY Specimen Anatomical Collection Method / Collection Time Recei pee Time (Source) Location / Volume Laterality Blood BLOOD SPECIMEN / Venipuncture / 12/24/2021 6:12 2021 6:31 Unknown Unknown AM CDT AM CDT Narrative [facility] LABORATOR Y - 12/24/2021 7:29 AM CDT HGA1C Reference Ranges ??>= 6.5 ?? Diabetes* ??5.7-6.4 ??Impaired glucose tolerance ?? <5.7 ?Normal *In the absence of unequivocal hyperglyc emia, results should be confirmed by repeat testing for the diagnosis of diabetes. [place] Diabetes [employer] 2018 ?? Holly Owen MD EC CHEMISTRY ORDERABLES ABN Performing Organization Address City/[facility] Phon e Number [facility] [address] [place] [address] 401 LABORATORY (ABNORMAL) TROPONIN I (12/24/2021 6:12 AM CDT) P athologist Signature Troponin I 0.362 (H) 0.000 - 12/24/2021 [facility] 0.028 6:54 AM CDT MEDICAL CENTER ng/mL LABORATORY Specimen Anatomical Collection Method / Collection Time Recei pee Time (Source) Location / Volume Laterality Blood BLOOD SPECIMEN / Venipuncture / 12/24/2021 6:12 2021 6:31 Unknown Unknown AM CDT AM CDT Narrative [facility] LABORATOR Y - 12/24/2021 6:54 AM CDT Because no pediatric reference range alhaji a is published, the adult reference range will be utilized as this represents 99% of healthy adults. Holly Owen MD EC CHEMISTRY ORDERABLES Performing Organization Address City/State/ZIP Code Phon e Number [facility] [address] [place] [address] LABORATORY RAPID SARS-COV-2 RNA (COVID-19), MOLECULAR DETECTION (12/24/2021 12:27 AM CDT) [facility] Method Time Signature SARS-CoV-2 Negative Negative/Not 12/24/2021 [facility] RNA Detected 1:13 AM CDT [facility] (COVID-19) [facility] LABORATORY Comment: SARS-CoV-2 (COVID-19) target nu cleic [...] AM CDT 12:31 AM CDT Unknown Narrative [facility] LABORATOR Y - 12/24/2021 1:13 AM CDT Test detects target RNA by real-time polymerase chain reaction (PCR) on the [employer] GeneXpert System. Results should be used in [...] for this test can be found at: https://www.fda.gov/medical-devices/npizqzjjc-yulpwcoifl-howreln-devices/emergen oe-iqg-ruaoghqcqnfuqn Filemon Conrad MD EC MICROBIOLOGY - GENERAL OR DERABLES Performing Organization Address City/[facility]/ZIP Code Phon e Number [place] [address] LABORATORY EKG 12-LEAD (12/24/2021 12:06 AM CDT) athologist Signature Ventricular Rate 66 BPM MUSE Atrial Rate 66 BPM MUSE P-R Interval 226 ms MUSE QRS Duration 108 ms MUSE QT 470 ms MUSE QTc 492 ms MUSE P [place] 83 degrees MUSE R [place] -52 degrees MUSE T [place] 45 degrees MUSE Specimen (Source) Anatomical Collection [...] MD IP ECG ORDERABLES Performing Organization Address City/[facility]/ZIP Code Phon e Number MUSE MAGNESIUM (12/23/2021 11:52 PM CDT) athologist Signature Magnesium 2.0 1.8 - 2.7 12/24/2021 [facility] mg/dL 12:52 AM CDT [facility] LABORATORY Specimen Anatomical Collection Method / Collection Time Recei pee Time (Source) Location / Volume Laterality Blood BLOOD SPECIMEN / Venipuncture / 12/23/2021 11:52 12/23 Unknown Unknown PM CDT 11:57 PM CDT Filemon Conrad MD EC CHEMISTRY ORDERABLES Performing Organization Address [facility] Phon e Number [facility] [address] [place] [address] LABORATORY APTT (12/23/2021 11:52 PM CDT) P athologist Signature APTT 27 23 - 35 sec 12/24/2021 [facility] 12:10 AM T [facility] LABORATORY Specimen Anatomical Collection Method / Collection Time Recei pee Time (Source) Location / Volume Laterality Blood BLOOD SPECIMEN / Venipuncture / 12/23/2021 11:52 12/23 Unknown Unknown PM CDT 11:57 PM CDT Filemon Conrad MD EC HEMATOLOGY ORDERABLES Performing Organization Address City/[facility] Phon e Number [facility] [address] [address] LABORATORY PROTIME (12/23/2021 11:52 PM CDT) P athologist Signature INR 1.0 0.9 - 1.1 12/24/2021 [facility] 12:09 AM T [facility] LABORATORY Protime 13.4 12.0 - 14.2 12/24/2021 [facility] sec 12:09 AM T [facility] LABORATORY Specimen Anatomical Collection Method / Collection Time Recei pee Time (Source) Location / Volume Laterality Blood BLOOD SPECIMEN / Venipuncture / 12/23/2021 11:52 12/23 Unknown Unknown PM CDT 11:57 PM CDT Narrative [facility] LABORATOR Y - 12/24/2021 12:09 AM CDT Suggested therapeutic INR ranges for oral anticoagulant therapy: Category ? INR Value Prophylaxis ?2.0-3.0 Treat Thrombosis or Embolism ? 2.0-3 .0 Prosthetic Heart Valve ? 2. 5-3.5 Filemon Conrad MD EC HEMATOLOGY ORDERABLES Performing Organization Address [facility]/ZIP [facility] Phon e Number [facility] [address] [address] LABORATORY BLOOD BANK DRAW & HOLD (12/23/2021 11:52 PM CDT) P athologist Signature BB DRAW ONLY COMM 12/24/2021 ST. 12:16 AM T [facility] BLOOD BANK Comment: A specimen has been [...] EC BLOOD BANK ORDERABLES Performing Organization Address [facility]/ZIP Code Phon e Number [facility] [address] [address] BLOOD BANK (ABNORMAL) HEMOGRAM/DIFFERENTIAL (12/23/2021 11:52 PM CDT) [facility] Hospitalolo gist Method Time Signature WBC 9.1 3.2 - 12/24/2021 ST. 11.0 12:00 AM [facility] 10*9/L [facility] RBC 4.37 4.14 - 12/24/2021 ST. 5.76 12:00 AM [facility] 10*12/L [facility] HGB 12.8 (L) 12.9 - 12/24/2021 ST. 16.9 g/dL 12:00 AM [facility] HCT 37.5 (L) 38.4 - 12/24/2021 ST. 49.7 % 12:00 AM [facility] MCV 85.8 81.4 - 12/24/2021 ST. 99.0 fL 12:00 AM [facility] MCH 29.3 26.7 - 12/24/2021 ST. 33.1 pg 12:00 AM [facility] MCHC 34.1 31.6 - 12/24/2021 ST. 35.5 g/dL 12:00 AM [facility] RDW 13.1 11.3 - 12/24/2021 ST. 14.6 % 12:00 AM [facility] PLT 201 130 - 375 12/24/2021 ST. 10*9/L 12:00 AM [facility] Neutrophils % 68.6 % 12/24/2021 ST. 12:00 AM [facility] Lymphocytes % 15.4 % 12/24/2021 ST. 12:00 AM [facility] Monocytes % 7.8 % 12/24/2021 ST. 12:00 AM [facility] Eosinophils % 6.5 % 12/24/2021 ST. 12:00 AM [facility] Basophils % 1.1 % 12/24/2021 ST. 12:00 AM [facility] Immature 0.6 % 12/24/2021 ST. Granulocytes % 12:00 AM [facility] Neutrophils 6.2 1.5 - 7.6 12/24/2021 ST. Absolute 10*9/L 12:00 AM [facility] Lymphocytes 1.4 0.8 - 3.3 12/24/2021 ST. Absolute 10*9/L 12:00 AM [facility] Monocytes 0.7 0.2 - 0.9 12/24/2021 ST. Absolute 10*9/L 12:00 AM [facility] Eosinophils 0.6 (H) 0.0 - 0.4 12/24/2021 ST. Absolute 10*9/L 12:00 AM [facility] Basophils 0.1 0.0 - 0.1 12/24/2021 ST. Absolute 10*9/L 12:00 AM [facility] Immature 0.05 0.00 - 12/24/2021 ST. Granulocytes 0.06 12:00 AM [facility] Absolute 10*9/L [facility] Specimen Anatomical Collection Method / Collection Time Recei pee Time (Source) Location / Volume Laterality Blood BLOOD SPECIMEN / Venipuncture / 12/23/2021 11:52 12/23 Unknown Unknown PM CDT 11:57 PM CDT Filemon Conrad MD EC HEMATOLOGY ORDERABLES Performing Organization Address [facility] Phon e Number [facility] [address] [address] LABORATORY (ABNORMAL) TROPONIN I (12/23/2021 11:52 PM CDT) P athologist Signature Troponin I 0.377 (H) 0.000 - 12/24/2021 [facility] 0.028 12:22 AM CDT [facility] ng/mL LABORATORY Specimen Anatomical Collection Method / Collection Time Recei pee Time (Source) Location / Volume Laterality Blood BLOOD SPECIMEN / Venipuncture / 12/23/2021 11:52 12/23 Unknown Unknown PM CDT 11:57 PM CDT Narrative [facility] LABORATOR Y - 12/24/2021 12:22 AM CDT Because no pediatric reference range alhaji a is published, the adult reference range will be utilized as this represents 99% of healthy adults. Filemon Conrad MD EC CHEMISTRY ORDERABLES Performing Organization Address [facility] Phon e Number [facility] [address] [address] LABORATORY (ABNORMAL) BASIC METABOLIC PANEL (12/23/2021 11:52 PM CDT) Patholo gist Method Time Signature Sodium 139 134 - 143 12/24/2021 ST. mEq/L 12:17 AM [facility] Potassium 4.2 3.4 - 5.1 12/24/2021 ST. mEq/L 12:17 AM [facility] Chloride 105 99 - 110 12/24/2021 ST. mEq/L 12:17 AM [facility] Carbon Dioxide 20 19 - 29 12/24/2021 ST. mEq/L 12:17 AM [facility] Anion Gap 14.0 3.0 - 15.0 12/24/2021 ST. mEq/L 12:17 AM [facility] Blood Urea 36 (H) 5 - 24 12/24/2021 ST. Nitrogen mg/dL 12:17 AM [facility] Creatinine 1.58 (H) 0.70 - 12/24/2021 ST. 1.20 mg/dL 12:17 AM [facility] Glomerular 43 (L) >60 12/24/2021 [facility]. Filtration Rate mL/min/1.7 12:17 AM [facility] 3 m*2 [facility] Comment: Complications of CKD and risk o f cardiovascular disease increase when GFR is below 60ml.min/1.73m2. A persistently re duced GFR is a specific indication of Chronic Kidney Disease. The eGFR calculation has not been validated in patients >70yrs. Calcium 9.3 8.4 - 10.5 mg/dL 12/24/2021 12:17 AM CDT [facility] Glucose 113 (H) 70 - 99 mg/dL 12/24/2021 12:17 AM CDT [facility] Specimen Anatomical Collection Method / Collection Time Recei pee Time (Source) Location / Volume Laterality Blood BLOOD SPECIMEN / Venipuncture / 12/23/2021 11:52 12/23 Unknown Unknown PM CDT 11:57 PM CDT Narrative [facility] LABORATOR Y - 12/24/2021 12:17 AM CDT [...] Organization Address City/State/ZIP Code Phon e Number [address] ANGIO HEAD [...] iohexol (Omnipaque) 350 MG/ML 80 mL (COMPLETED) 2456 (Given - Provider: Octavio Glover, RT(R)) 80 mL, IV Push, ONCE, 1 dose, On Fri12/23/21 at 2340 levothyroxine (Synthroid) tablet 100 mcg 0634 (Given - Provider: Marialuisa Boswell, RN) 100 mcg, Oral, ONCE DAILY, First dose on Fri12/24/21 at 0700, Until Discontinued losartan (Cozaar) tablet 50 mg 0 828 (Given - Provider: Estelle eBasley, RN) 50 mg, Oral, ONCE DAILY, First [...] TO CARDIOLOGY 1 12/24/2021 IP CONSULT TO [employer] [facility] RAISER OPERATOR 1 12/24/2021 IP CONSULT TO SASKIA TELE-STROKE 1 12/23/2021 documented in this encounter
--- OUTSIDE RECORDS SUMMARY | 2022-05-27 12:21 | XMS_ITS | Clinical Summary ---
:1945 Author Organization [employer] Address [address] [address] Phone Care Team Providers Name Role Phone [...] Phone Address Typ e / Group Dates [facility] [id number] 2020-Pre [phone] ATTN Medicar e MEDICARE sent [phone] ??CLAIMS Replacement PLANS [address] [place] [phone] [facility] [id number] 2021-Pre [phone] [facility] CARE-[employer] sent [phone] [employer] [address] [place] [address] Jonnathan Costa Other Self 1945 [phone] [id number] (Home) [place] [address] Advance Directives For more information, please contact: [phone] Latest Code Status on File Code Status Date Activated Date Inactivated Comments Full Code 12/24/2021 2:27 AM 12/24/2021 10:02 PM Full Code 02/25/2021 7:21 PM 02/26/2021 7:54 PM
--- OUTSIDE RECORDS SUMMARY | 2022-05-27 12:21 | XMS_ITS | Encounter Summary ---
:1945 Author Organization [employer] Address [address] [address] Phone Care Team Providers Name Role Phone [...]
--- OUTSIDE RECORDS SUMMARY | 2022-05-27 12:21 | XMS_ITS | Encounter Summary ---
:1945 Author Organization [employer] Address [address] [address] Phone Care Team Providers Name Role Phone Unavailable Primary Care Provider Unavailable Reason for Visit Reason Comments Difficulty Breathing Auth/Cert Specialty Diagnoses / Procedures Referred By Contact Refer red To Contact Diagnoses Acute left-sided CHF (congestive heart failure) (HCC) [facility] [address] [place] [address] [place] [address] Referral ID Status Reason Start Date Expiration Date Visits Requ ested Visits Authorized [id number] 1 1 Encounter Details Date Type Department Care Team Description 02/25/2021 - Hospital Encounter [facility], Gavino Cee MD [address] [place] [address] [phone] Acute on chronic congestive heart failur e, unspecified heart failure type (HCC) (Primary Dx); 02/26/2021 Center Jill Gupta MD [address] [place] [address] [phone] Moderate persistent asthma with acute ex acerbation [address] [place] [address] [id number] Social History Tobacco Use Types Packs/Day Years [...] Date: 02/26/2021 Patient will be discharged from [facility] to Home. Discharge Diagnoses: # Acute on chronic HFpEF; EF 50% echo 11/17/20 ([facility]). # Moderate asthma with acute exacerbation. # Acute hypoxic respiratory failure. 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 Discharge Procedure Orders Diet/NPO Status Order Specific [...] with chronic HFpEF; EF 50% echo 11/17/20 ([facility]), asthma, HTN, insulin-dependent type 2 diabetes. Was [...] make it to his appointment with his machine shorthand teacher at [facility] tomorrow. Home oxygen test shows oxygen saturation of 90% on room air but with activity saturation dropped to 87%. Patient will need 2 L of oxygen with activity. DME for home oxygen done. Admitting diagnoses: # Acute on chronic HFpEF; EF 50% echo 11/17/20 ([facility]). # Moderate asthma with acute exacerbation. # [...] occasional unintended word substitution. Jill Baugh MD [facility] Internal Medicine/Hospitalist CC: No primary care [...] your medicine. Do not use any medicines, msjh-svq-ddsubpe drugs, vitamins, herbs, or food supplements without [...] smoke. Smoking cessation support is available at [employer] (0-815-857-LKHH(2423) or [employer]). Jonnathan Costa does not smoke. We are concerned about your emotional health after discharge. If you are feeling alone, sad, or hopeless, a 24 hour suicide crisis and referral hotline is available at [facility] (0636) or toll-free at Heart Failure:Weigh your self [...] Care Everywhere. Heart Failure, Discharge Instructions for (Albanian)documented in this encounter Medications at Time of [...] Code Departure Means Destination Home and/or Self Usp documented in this encounter Progress Notes Catalina [...] list of DME suppliers; they have chosen [facility] for their home oxygen needs. Marko Batista [...] lives with spouse in a home in [facility], it is multiple levels, seemingly has [...] Function/Coordination: Dominant Hand: Right Bilateral coordination and occupational therapy assistant strength is Within function limits. 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 NA Precautions: ?? Full code ?? Oxygen: 2 LPM with activity ?? DM II ?? Falls: Bed/chair alarm SUBJECTIVE Pt agrees to PT wili but plans to leave today at 1400 as needs to be at [facility] tomorrow for a follow up appointment - see chart for further information. RT states he needs 2L oxygen with standing tasks/activities , 5 children, lives in [facility]. States he has a SEC but does not use it and does not agree to use of walker as determined to gain the strength to walk without a device. States he and spouse/family have talked about converting entry level account representative office to bedroom so he and spouse don't have 15-17 steps to climb to their bedroom. He attributes loss of balance when walking with OT and RT due to his shoes vs decreased balance status. States he has never fallen due to loss of balance deficits. Chief Complaints: SOB; Weakness; h/o falls; weight gain 75-year-old man with chronic HFpEF; EF 50% echo 11/17/20 ([facility]), asthma, HTN, insulin-dependent type 2 diabetes. Presents [...] Situation/Social History: Pt lives with spouse in [place], [place] in a Multilevel home with no [...] seen 1:1 by PT for Evaluation from [id number] with session ended due to nursing staff [...] shoulder width apart; able to make turns, pick out hand object off floor/reach above shoulder without loss [...] will not need to be seen by [facility] IP PT team as being discharge today. [...] Time: 15' ?? Evaluation Low - Complexity (27499) Harman Coles, PT Priyanka Yanes RN - 02/25/2021 8:10 PM CDT Jonnathan Costa admitted to Tele unit from emergency department. Transported via wheelchair with O2 escorted by information technology auditor. Notification of admission: not applicable. Handoff received from ALISSA Zhu RN. Belongings verified: Yes See belongings flowsheet. Priyanka Yanes RN documented in this encounter H&P Notes Jill Baugh MD - 02/25/2021 5:59 PM CDT 02/25/2021 HOSPITALIST ADMISSION NOTE Jill Baugh MD [facility] Patient Name: Jonnathan Costa Date: 1945 Location/Room #: Admission Date: 02/25/2021 Date of service: 02/25/2021 Provider: Jill Baugh MD, Internal Medicine/Hospitalist CC: Progressive shortness of breath with weight gain. HPI: 75-year-old man with chronic HFpEF; EF 50% echo 11/17/20 ([facility]), asthma, HTN, insulin-dependent type 2 diabetes. Presents [...] salt. Was recently seen by his cardiology ASSISTANT CASE MANAGER in [facility] on 02/22/21 who made some changes to his medications as follows >> amiodarone discontinued because of hypothyroidism (TSH of 10.3 on 01/11/21), hydralazine and nitrates discontinued, losartan started, torsemide dose was increased from daily to twice daily, metoprolol dose was increased to 50 mg daily. Echo 11/17/20 ([facility]): Final Impressions - Mild-moderately enlarged left ventricular [...] on chronic HFpEF; EF 50% echo 11/17/20 ([facility]). # Possible acute asthma exacerbation. 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 Prasanna Bernal at the [facility].?? COLONOSCOPY 08/10/2013 ?? Repeat in 5 years [...] children. Accompanied by and daughter. Lives in [facility]. Quitsmoking about 40 years ago. Rarely drinks [...] occasional unintended word substitution. Jill Baugh MD [facility] Internal Medicine/Hospitalist documented in this encounter Consult Antonella De La Torre PharmD - 02/25/2021 6:43 PM CDT EDUCATIONAL SPEECH LANGUAGE CLINICIAN Medication History obtained by: Antonella Randhawa, Pharm.D Home medication list updated using: spouse and Care Everywhere (Organization: [facility]) Spoke with the patient? No, Azra Number [...] All meds added new to EH list; machine shorthand teacher removed imdur 60mg daily, hydralazine 25mg every [...] about a month. He follow-up with his machine shorthand teacher on . Multiple adjustments were made to [...] Pulmonary vasculature appears prominent. Electronically Signed: Alfred Srinivasan 02/25/2021 5:22 PM Emergency Department Course: [...] 02/26/[address] mg/dL 12:06 PM CDT [facility] POINT OF CARE Specimen Anatomical Collection Method Collection Time Receive d Time (Source) Location / / Volume Laterality Blood BLOOD SPECIMEN / 02/26/2021 12:00 021 Unknown PM CDT 12:06 PM CDT Jill Baugh MD EC CHEMISTRY ORDERABLES Performing Organization Address City/[facility] Phon e Number [facility] [address] [address] POINT OF CARE (ABNORMAL) GLUCOSE, METER (02/26/2021 7:31 AM CDT) athologist Signature Glucose Meter 246 (H) 70 - 99 02/26/[address] mg/dL 7:37 AM T [facility] POINT OF CARE Specimen Anatomical Collection Method Collection Time Receive d Time (Source) Location / / Volume Laterality Blood BLOOD SPECIMEN / 02/26/2021 7:31 AM 02/26 7:37 Unknown CDT AM CDT Jill Baugh MD EC CHEMISTRY ORDERABLES Performing Organization Address [facility] Phon e Number [facility] [address] [address] POINT OF CARE (ABNORMAL) HEMOGRAM (02/26/2021 5:56 AM CDT) athologist Signature WBC 4.9 3.2 - 11.0 02/26/2021 [facility] 10*9/L 6:33 AM T [facility] RBC 3.39 (L) 4.14 - 5.76 02/26/2021 [facility] 10*12/L 6:33 AM [facility] HGB 10.3 (L) 12.9 - 16.9 02/26/2021 [facility] g/dL 6:33 AM [facility] HCT 31.2 (L) 38.4 - 49.7 02/26/2021 [facility] % 6:33 AM [facility] MCV 92.0 81.4 - 99.0 02/26/2021 [facility] fL 6:33 AM [facility] MCH 30.4 26.7 - 33.1 02/26/2021 [facility] pg 6:33 AM [facility] MCHC 33.0 31.6 - 35.5 02/26/2021 [facility]. [facility] g/dL 6:33 AM [facility] RDW 13.1 11.3 - 14.6 02/26/2021 [facility] % 6:33 AM [facility] PLT 179 130 - 375 02/26/2021 [facility] 10*9/L 6:33 AM [facility] Specimen Anatomical Collection Method / Collection Time Recei pee Time (Source) Location / Volume Laterality Blood BLOOD SPECIMEN / Venipuncture / 02/26/2021 5:56 2020 6:27 Unknown Unknown AM CDT AM CDT Jill Baugh MD EC HEMATOLOGY ORDERABLES Performing Organization Address City/State/ZIP Code Phon e Number [place] [address] LABORATORY (ABNORMAL) BASIC METABOLIC PANEL (02/26/2021 5:56 AM CDT) [facility] Method Time Signature Sodium 139 134 - 143 02/26/2021 ST. mEq/L 6:56 AM [facility]ORY Potassium 4.4 3.4 - 5.1 02/26/2021 ST. mEq/L 6:56 AM [facility] Chloride 108 99 - 110 02/26/2021 ST. mEq/L 6:56 AM [facility] Carbon Dioxide 21 19 - 29 02/26/2021 ST. mEq/L 6:56 AM [facility] Anion Gap 10.0 3.0 - 15.0 02/26/2021 ST. mEq/L 6:56 AM [facility] Blood Urea 32 (H) 5 - 24 02/26/2021 ST. Nitrogen mg/dL 6:56 AM [facility] Creatinine 1.62 (H) 0.70 - 02/26/2021 ST. 1.20 mg/dL 6:56 AM [facility] Glomerular 42 (L) >60 02/26/2021 [facility]. Filtration Rate mL/min/1.7 6:56 AM [facility] 3 m*2 [facility] Comment: Complications of CKD and risk o f cardiovascular disease increase when GFR is below 60ml.min/1.73m2. A persistently re duced GFR is a specific indication of Chronic Kidney Disease. The eGFR calculation has not been validated in patients >70yrs. Calcium 8.5 8.4 - 10.5 mg/dL 02/26/2021 6:56 AM T [facility] Glucose 238 (H) 70 - 99 mg/dL 02/26/2021 6:56 AM T [facility] Specimen Anatomical Collection Method / Collection Time Recei pee Time (Source) Location / Volume Laterality Blood BLOOD SPECIMEN / Venipuncture / 02/26/2021 5:56 2020 6:27 Unknown Unknown AM CDT AM CDT Narrative [facility] LABORATOR Y - 02/26/2021 6:56 AM [...] Organization Address City/State/ZIP Code Phon e Number [facility] [address] [place] [address] 401 LABORATORY EKG 12-LEAD (02/25/2021 11:08 PM CDT) P athologist Signature Ventricular Rate 62 BPM MUSE Atrial Rate 62 BPM MUSE P-R Interval 232 ms MUSE QRS Duration 98 ms MUSE QT 480 ms MUSE QTc 487 ms MUSE P [place] 18 degrees MUSE R [place] -41 degrees MUSE T [place] -39 degrees MUSE Specimen (Source) Anatomical Collection [...] MD IP ECG ORDERABLES Performing Organization Address City/[facility]/ZIP Code Phon e Number MUSE (ABNORMAL) GLUCOSE, METER (02/25/2021 9:15 PM CDT) athologist Signature Glucose Meter 276 (H) 70 - 99 02/25/[address] mg/dL 9:21 PM CDT [facility] POINT OF CARE Specimen Anatomical Collection Method Collection Time Receive d Time (Source) Location / / Volume Laterality Blood BLOOD SPECIMEN / 02/25/2021 9:15 PM 02/25 9:21 Unknown CDT PM CDT Jill Baugh MD EC CHEMISTRY ORDERABLES Performing Organization Address City/[facility] Phon e Number [facility] [address] [place] [address] POINT OF CARE STAT SARS-COV-2 RNA (COVID-19) (02/25/2021 6:31 PM CDT) [facility] gist Method Time Signature SARS-CoV-2 Negative Negative/Not 02/25/2021 ST. RNA Detected 7:15 PM CDT [facility] Comment: SARS-CoV-2 (COVID-19) target nu cleic [...] / PM CDT PM CDT Unknown Narrative [facility] LABORATOR Y - 02/25/2021 7:15 PM CDT Test detects target RNA by real-time polymerase chain reaction (PCR) on the [employer] GeneXpert System. Results should be used in [...] for this test can be found at: https://www.fda.gov/medical-devices/stqoldioj-jyxcdqbxqf-uasxsnh-devices/emergen dw-yse-hqohyaqfymgtrw Johnson Rubio MD EC MICROBIOLOGY - GENERAL OR DERABLES Performing Organization Address City/State/ZIP Code Phon e Number [place] [phone] [place] [address] LABORATORY XR CHEST 2 VIEWS (02/25/2021 5:15 [...] CDT) athologist Signature Procalcitonin 0.04 <0.50 02/25/2021 [facility] ng/mL 7:27 PM CDT [facility] Specimen Anatomical Collection Method / Collection Time Recei pee Time (Source) Location / Volume Laterality Blood BLOOD SPECIMEN / Venipuncture / 02/25/2021 4:55 2020 4:59 Unknown Unknown PM CDT PM CDT Narrative [facility] LABORATOR Y - 02/25/2021 7:27 PM [...] Organization Address City/State/ZIP Code Phon e Number [facility] [address] [place] [address] LABORATORY MAGNESIUM (02/25/2021 4:55 PM CDT) P athologist Signature Magnesium 2.0 1.8 - 2.7 02/25/2021 [facility] mg/dL 6:20 PM [facility] Specimen Anatomical Collection Method / Collection Time Recei pee Time (Source) Location / Volume Laterality Blood BLOOD SPECIMEN / Venipuncture / 02/25/2021 4:55 2020 4:59 Unknown Unknown PM CDT PM CDT Jill Baugh MD EC CHEMISTRY ORDERABLES Performing Organization Address City/[facility] Code Phon e Number [facility] [address] [place] [address] LABORATORY (ABNORMAL) BASIC METABOLIC PANEL (02/25/2021 4:55 PM CDT) Patholo gist Method Time Signature Sodium 138 134 - 143 02/25/2021 ST. mEq/L 5:17 PM [facility] Potassium 4.8 3.4 - 5.1 02/25/2021 ST. mEq/L 5:17 PM [facility] Chloride 106 99 - 110 02/25/2021 ST. mEq/L 5:17 PM [facility] Carbon Dioxide 22 19 - 29 02/25/2021 ST. mEq/L 5:17 PM [facility] Anion Gap 10.0 3.0 - 15.0 02/25/2021 ST. mEq/L 5:17 PM [facility] Blood Urea 30 (H) 5 - 24 02/25/2021 ST. Nitrogen mg/dL 5:17 PM [facility] Creatinine 1.62 (H) 0.70 - 02/25/2021 ST. 1.20 mg/dL 5:17 PM [facility] Glomerular 42 (L) >60 02/25/2021 ST. Filtration Rate mL/min/1.7 5:17 PM [facility] 3 m*2 [facility] Comment: Complications of CKD and risk o f cardiovascular disease increase when GFR is below 60ml.min/1.73m2. A persistently re duced GFR is a specific indication of Chronic Kidney Disease. The eGFR calculation has not been validated in patients >70yrs. Calcium 9.0 8.4 - 10.5 mg/dL 02/25/2021 5:17 PM CDT [facility] Glucose 357 (H) 70 - 99 mg/dL 02/25/2021 5:17 PM CDT [facility] Specimen Anatomical Collection Method / Collection Time Recei pee Time (Source) Location / Volume Laterality Blood BLOOD SPECIMEN / Venipuncture / 02/25/2021 4:55 2020 4:59 Unknown Unknown PM CDT PM CDT Narrative [facility] LABORATOR Y - 02/25/2021 5:17 PM [...] Organization Address City/State/ZIP Code Phon e Number [address] [address] LABORATORY TROPONIN I (02/25/2021 4:55 PM CDT) P athologist Signature Troponin I 0.028 0.000 - 02/25/2021 [facility] 0.028 ng/mL 5:24 PM CDT [facility] Specimen Anatomical Collection Method / Collection Time Recei pee Time (Source) Location / Volume Laterality Blood BLOOD SPECIMEN / Venipuncture / 02/25/2021 4:55 2020 4:59 Unknown Unknown PM CDT PM CDT Narrative [facility] LABORATOR Y - 02/25/2021 5:24 PM CDT Because no pediatric reference range alhaji a is published, the adult reference range will be utilized as this represents 99% of healthy adults. Johnson Rubio MD EC CHEMISTRY ORDERABLES Performing Organization Address [facility] Phon e Number [facility] [address] [address] LABORATORY (ABNORMAL) BNP (02/25/2021 4:55 PM CDT) [facility] Method Time Signature B-Type 1,113 (H) <=100 02/25/2021 ST. Natriuretic pg/mL 5:24 PM CDT [facility] Peptide (BNP) [facility] Specimen Anatomical Collection Method / Collection Time Recei pee Time (Source) Location / Volume Laterality Blood BLOOD SPECIMEN / Venipuncture / 02/25/2021 4:55 2020 4:59 Unknown Unknown PM CDT PM CDT Narrative [facility] LABORATOR Y - 02/25/2021 5:24 PM CDT CAUTION: BNP results will be elevated in patients on nesiritide (Natrecor). Please wait five half-lives (2 hrs) after infus ion of nesiritide before drawing a BNP level. Johnson Rubio MD EC CHEMISTRY ORDERABLES ABN Performing Organization Address [facility] Phon e Number [facility] [address] [address] LABORATORY (ABNORMAL) HEMOGRAM/DIFFERENTIAL (02/25/2021 4:55 PM CDT) [facility] Method Time Signature WBC 8.3 3.2 - 02/25/2021 ST. 11.0 5:02 PM CDT [facility] 10*9/L [facility] RBC 3.75 (L) 4.14 - 02/25/2021 ST. 5.76 5:02 PM CDT [facility] 10*12/L [facility] HGB 11.5 (L) 12.9 - 02/25/2021 ST. 16.9 g/dL 5:02 PM T [facility] HCT 35.2 (L) 38.4 - 02/25/2021 ST. 49.7 % 5:02 PM T [facility] MCV 93.9 81.4 - 02/25/2021 ST. 99.0 fL 5:02 PM [facility] MCH 30.7 26.7 - 02/25/2021 ST. 33.1 pg 5:02 PM [facility] MCHC 32.7 31.6 - 02/25/2021 ST. 35.5 g/dL 5:02 PM [facility] RDW 13.5 11.3 - 02/25/2021 ST. 14.6 % 5:02 PM [facility] PLT 171 130 - 375 02/25/2021 ST. 10*9/L 5:02 PM [facility] Neutrophils % 83.0 % 02/25/2021 ST. 5:02 PM [facility] Lymphocytes % 6.6 % 02/25/2021 ST. 5:02 PM [facility] Monocytes % 6.3 % 02/25/2021 ST. 5:02 PM [facility] Eosinophils % 2.9 % 02/25/2021 ST. 5:02 PM [facility] Basophils % 0.7 % 02/25/2021 ST. 5:02 PM [facility] Immature 0.5 % 02/25/2021 ST. Granulocytes % 5:02 PM [facility] Neutrophils 6.9 1.5 - 7.6 02/25/2021 ST. Absolute 10*9/L 5:02 PM [facility] Lymphocytes 0.6 (L) 0.8 - 3.3 02/25/2021 ST. Absolute 10*9/L 5:02 PM [facility] Monocytes 0.5 0.2 - 0.9 02/25/2021 ST. Absolute 10*9/L 5:02 PM [facility] Eosinophils 0.2 0.0 - 0.4 02/25/2021 ST. Absolute 10*9/L 5:02 PM [facility] Basophils 0.1 0.0 - 0.1 02/25/2021 ST. Absolute 10*9/L 5:02 PM [facility] Immature 0.04 0.00 - 02/25/2021 ST. Granulocytes 0.06 5:02 PM CDT [facility] 10*9/L [facility] Specimen Anatomical Collection Method / Collection Time Recei pee Time (Source) Location / Volume Laterality Blood BLOOD SPECIMEN / Venipuncture / 02/25/2021 4:55 2020 4:59 Unknown Unknown PM CDT PM CDT Johnson Rubio MD EC HEMATOLOGY ORDERABLES Performing Organization Address City/State/ZIP Code Phon e Number [facility] [address] [place] [address] LABORATORY documented in this encounter Visit [...] Cap by Deleted via home med 11/27/201802/25 [id number], mouth before large review ([id number]) [id number] meals UNIT Capsule Delayed Release Particles documented [...]
[2022-05-27 13:54] VITALS: BP 118/92; PULSE 100; RESP 16; O2SAT 99
== END 2022-05-27 14:12 | disposition home or self-care (01) ==
PROVIDERS: Emergency Provider Student in an Organized Health Care Education/Training Program
DX: L02.31 Cutaneous abscess of buttock (principal)
CPT/HCPCS: 10060; 99283; 99284

== ENCOUNTER 2022-05-27 13:50 | Outpatient (CLI) | payer MEDICARE, SELFPAY ==
--- OUTSIDE RECORDS SUMMARY | 2022-05-28 07:05 | XMS_ITS | Clinical Summary ---
:1945 Author Organization [facility] Address [address] [place] [address] Care Team Providers Name Role Phone Shayla Alford D.O. Primary Care Provider [phone] Source Comments Patient records contain information from all sites at [facility]. For routine questions regarding patient records, call [phone] during business hours, M-F 8:00 AM - 5:00 PM Central Time. Record requests for emergency care only can be directed to [phone] at any time.[facility] Allergies Active Allergy Reactions Severity Noted [...] to walk as needed. Community Services/County Contacts: [place] sarita cuello. 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 02/28/2022 Clinical Communication Community Internal [facility] Form Review Medicine Shayla queen ([facility] D.O. - labs ) 02/27/2022 Comprehensive Visit [...] do you attend lutheran or Never 2021 evangelical services? Do you [...] have completed or the highest Martin, MEd, DIPLOMATIC OFFICER, CAYDEN) degree you have received? Sex Assigned at Date Recorded Male 05/21/2018 2:34 PM CDT Last Filed Vital Signs Vital Sign Reading Time Taken Comments Blood Pressure 137/76 02/27/2022 1:56 PM CDT Pulse 72 02/27/2022 1:56 PM CDT Temperature 36.2 ??C (97.2 ??F) 02/27/2022 1:56 PM CDT Respiratory Rate 18 09/05/2021 9:53 AM JEWEL BEARING MAKER Oxygen Saturation 98% 02/27/2022 1:56 PM room air CDT Inhaled Oxygen Concentration - - Weight 91.6 kg (202 lb) 02/27/2022 1:56 PM per N.H. Not es CDT Height 184.9 cm (6' 0.8) 10/09/2021 3:28 PM JEWEL BEARING MAKER Body Mass Index 26.8 10/09/2021 3:28 PM JEWEL BEARING MAKER Plan of Treatment Health Maintenance Due Date [...] history exists Medical Devices Implanted Type Area Painting Instructor Device Shelf Model / Identifier Expiration Serial [...] T ype Group Dates UCARE UCARE FOR [id number] 2019-Pre [phone] [address] [employer] SENIORS O sent -0328 [place] [address] [facility] [id number] 2007-Pr OCC CLAIMS I ndemnity ADMINISTRATION esent [employer]ESS[employer] [place] [address] [place] [address] Advance Directives For more information, please contact: [phone] Latest Code Status on File Code Status Date Activated Date Inactivated Comments Full Code 05/03/2020 5:37 PM 05/06/2020 7:12 PM Full Code: Discussed Care Teams Preload Supervisor Relationship Specialty Start Date End Date Shayla Alford D.O. PCP - General Internal Medicine 05/22/20 [address] [place] [address]
--- OUTSIDE RECORDS SUMMARY | 2022-05-28 07:05 | XMS_ITS ---
:1945 Author Organization [facility] Address [address] [place] [address] Care Team Providers Name Role Phone Shayla Alford D.O. Primary Care Provider [phone] Active Problems Patient Care Coordination Note Formatting [...] to walk as needed. Community Services/County Contacts: [place] s erkym. 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 Treatments may have been administered in another system.
--- OUTSIDE RECORDS SUMMARY | 2022-05-28 07:05 | XMS_ITS | Encounter Summary ---
:1945 Author Organization [facility] Address [address] [place] [address] Care Team Providers Name Role Phone Shayla Alford D.O. Primary Care Provider [phone] Encounter Details Date Type Department Care Team Description 01/10/2022 Clinical Communication Department of Internal Andrei Dejesus Medicine in [place], [place], [place].O Mauro [place] [address] [place] [phone] Social History Tobacco Use Types Packs/Day Years [...] do you attend evangelical or Never 2021 cheondoism services? Do you [...] have completed or the highest Martin, MEd, TREKKING GUIDE, CAYDEN) degree you have received? Sex Assigned [...] Riana from [employer] returning call, or [phone] Telephone Encounter - Shanon Glover - 01/11/2022 8:15 AM CDT Staff is calling in and would like a nurse to call her back, to let her know if the fax was received. She also stated that you could call the clinical coordinator , Viri at [phone]. Please advise. Telephone Encounter - Faina Deleon [...] documented as of this encounter Care Teams Monument Mason Relationship Specialty Start Date End Date Shayla Alford D.O. PCP - General Internal Medicine 05/22/20 [address] [place] [phone] documented as of this encounter
--- OUTSIDE RECORDS SUMMARY | 2022-05-28 07:05 | XMS_ITS | Clinical Summary ---
:1945 Author Organization [facility] [place] [address] Care Team Providers Name Role Phone Shayla Alford DO Primary Care Provider [phone] Allergies Active Allergy Reactions Severity Noted Date Comments Amlodipine Dizziness Medium 06/22/2018 Reports juanito hernandez dizziness. Was told by a [place] provider t o never take again. 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 What are JONNATHAN's challenges, stressors, or barriers? [...] Team Description 05/14/2022 Lab Requisition Natasha Coles, OVEN OPERATOR AUTOMATIC 05/07/2022 Hospital Encounter Cody Lala, Ren Granados, PT 05/07/2022 Travel 05/01/2022 Hospital Encounter Angeles Reid, PT 05/01/2022 Travel 04/26/2022 Hospital Encounter Cody Lala MD Thomas, Cameron, PT 04/26/2022 Travel 04/12/2022 Hospital Encounter Cody Lala MD Encounter for person Ren Richard, PT [facility] 04/12/2022 Travel 03/29/2022 Transcribe Orders Cody Lala [...] Comments Blood Pressure 131/68 11/14/2021 11:00 AM BEHAVIOR MANAGEMENT SPECIALIST Pulse 52 11/14/2021 11:00 AM BEHAVIOR MANAGEMENT SPECIALIST Temperature 36.4 ??C (97.5 ??F) 11/14/2021 9:30 AM BEHAVIOR MANAGEMENT SPECIALIST Respiratory Rate 18 11/14/2021 11:00 AM BEHAVIOR MANAGEMENT SPECIALIST Oxygen Saturation 99% 11/14/2021 11:00 AM BEHAVIOR MANAGEMENT SPECIALIST Inhaled Oxygen Concentration - - Weight 97.3 kg (214 lb 8.1 oz) 11/21/2021 2:42 PM BEHAVIOR MANAGEMENT SPECIALIST Height 184.9 cm (6' 0.8) 11/21/2021 2:42 PM BEHAVIOR MANAGEMENT SPECIALIST Body Mass Index 28.46 11/21/2021 2:42 PM BEHAVIOR MANAGEMENT SPECIALIST Plan of Treatment Health Maintenance Due Date [...] BASIC METABOLIC PANEL (05/21/2022 7:38 AM CDT) [facility] gist Method Time Signature SODIUM 142 135 - 145 05/21/2022 [place] mmol/L 10:14 AM [facility] POTASSIUM 4.5 3.5 - 5.0 05/21/2022 [place] mmol/L 10:14 AM [facility] CHLORIDE 109 98 - 110 05/21/2022 [place] mmol/L 10:14 AM [facility] CO2,TOTAL 23 21 - 31 05/21/2022 [place] mmol/L 10:14 AM [facility] ANION GAP 10 5 - 18 05/21/2022 [place] 10:14 AM [facility] GLUCOSE 92 65 - 100 05/21/2022 [place] mg/dL 10:14 AM [facility] CALCIUM 9.0 8.5 - 10.5 05/21/2022 [place] mg/dL 10:14 AM [facility] BUN 25 8 - 25 05/21/2022 [place] mg/dL 10:14 AM [facility] CREATININE 1.30 (H) 0.72 - 05/21/2022 [facility] 1.25 mg/dL 10:14 AM [facility] BUN/CREAT RATIO 19 10 - 20 05/21/2022 [facility] 10:14 AM [facility] eGFR 56 (L) >90 05/21/2022 [place] mL/min/1.7 10:14 AM [facility] 3m2 LABORATORY Comment: As of 2021, eGFR [...] Organization Address City/State/ZIP Code Phon e Number [facility] [address] [place] [address] LAB TRACKING EVENT (02/26/2022 11:27 AM CDT) Specimen Anatomical Collection Method Collection Time Receive d Time (Source) Location / / Volume Laterality Other (Other) Client Collect / 02/26/2022 11:27 2021 Unknown AM CDT 11:21 PM CDT Doctor Unknown LAB BILL ONLY Performing Organization Address City/State/ZIP Code Phon e Number [facility] [address] [place] [address] LABORATORY-CENTRAL 2000 LABORATORY PATH URINE CYTOLOGY (02/26/2022 11:27 AM CDT) Component Value Ref Test Analysis Performed At [facility] gist Range Method Time Signature Case Report Medical Cytology Report ? Case: [id number] ? 02/27/2022 [facility] Authorizing Provider: ??Unkn own, Doctor ?Collected: ? 02/26/2022 1127 ? 5:35 PM HEAL TH Ordering Location: ? [facility] C[facility]TRAL LAB ?Received: ?02/27/2022 0833 ? CDT NIKOLAS DOZIER Pathologist: ? Lea Peralta MD ? ENTRAL Specimen: ?Urine ? LABORATORY Final A) URINE FOR CYTOLOGY: 02/27/2022 [facility] Electronically Diagnosis 1. Negative for high grade urothelial carcinoma 5:35 PM HEALTH signed by 2. Acute inflammation present CDT LABORATORY-C Lea Peralta ENTRAL MD on 2021 LABORATORY at 5:35 P M Comment A) According to 02/27/2022 [facility] system 5:35 PM HEALTH of reporting CDT [...] neoplasm. Clinical The patient is a 02/27/2022 [facility] 76 y.o. male 5:35 PM HEALTH with a history CDT LABORATORY-C of bladder ENTRAL cancer. LABORATORY Gross 02/27/2022 [facility] Description A) SOURCE: Urine 5:35 PM HEALTH CDT LABORATORY-C The specimen consists of 70 cc of yellow hazy fluid from which the following is prepared: ENTRAL ? -1 Papanicolaou stained ThinPrep slide LABORATORY Microscopic All slides were reviewed microscopically. 02/27/2022 [facility] Description 5:35 PM HEALTH Specimen adequacy: Adequate for interpretation. CDT LABORATORY-C ENTRAL The microscopic appearance substantiates the diagnosis. LABORATORY Additional Cytology is screened at [facility], Central Laboratory - [address], [place] [address] and [facility] - [address] [place] [address] and 02/27/2022 [facility] - [address] [place] [address] 5:35 PM HEALTH CDT LABORATORY-C ENTRAL Interpreted at [facility], Central Laboratory - [address], [place] [address] LABORATORY Specimen Anatomical Collection Method Collection Time Receive d Time (Source) Location / / Volume Laterality Urine URINE SPECIMEN / 02/26/2022 11:27 022 8:33 Unknown AM CDT AM CDT Doctor Unknown PATHOLOGY/CYTOLOGY Performing Organization Address City/State/ZIP Code Phon e Number [facility] [address] [place] [address] LABORATORY-CENTRAL 2000 LABORATORY from Last 3 Months Insurance Payer Benefit Plan / Subscriber ID Effective Dates Phone Addre ss Type Group MEDICARE PART A MEDICARE PART A [id number] 2008-Presen ATTN: CLAIMS - HB USE ONLY HB ONLY t [address] [place] [address] UCARE [place] MEDICARE [id number] Effective for [address] [place] [address] UCARE MR ADA[place] MEDICARE [id number] 2021-Present [address] [place] [address] Jonnathan Costa Personal/Family Self 1945 [address] (Home) [place] [address] Advance Directives Latest Code Status on File [...] 6:07 AM 08/28/2016 2:31 PM Care Teams Datastage Consultant Relationship Specialty Start Date End Date Shayla Alford DO PCP - General Internal Medicine 12/18/20 [address], [place] [phone]
--- OUTSIDE RECORDS SUMMARY | 2022-05-28 07:05 | XMS_ITS | Encounter Summary ---
:1945 Author Organization [facility] Address [address] [place] [address] Care Team Providers Name Role Phone Shayla Alford D.O. Primary Care Provider [phone] Encounter Details Date Type Department Care Team Description 03/12/2022 Clinical Communication Department of Sleep Mari Lala, Medicine in [place], M.P .H. [place] [address] [place], [place] [phone] Social History Tobacco Use Types Packs/Day [...] do you attend yarsani or Never 2021 religion services? Do you [...] completed or the highest Martin, MEd, FRONT DESK ASSOCIATE, CAYDEN) degree you have received? Sex [...] CDT Reason for Communication: Nghia calling from [facility], Dr. Amador is wondering if heshould discontinue ASA med.. Patient is currently taking Plavix. Wondering if they can discontinue taking aspirin. Call ALLEY Meredith at Current or [phone] Can Nursing/Provider leave a detailed message?: yes [...] as of this encounter Care Teams Office Clerk Routine Relationship Specialty Start Date End Date Shayla Alford D.O. PCP - General Internal Medicine 05/22/[address] [phone] documented as of this encounter
--- OUTSIDE RECORDS SUMMARY | 2022-05-28 07:05 | XMS_ITS | Encounter Summary ---
:1945 Author Organization [facility] Address [address] [place] [address] Care Team Providers Name Role Phone Shayla Alford D.O. Primary Care Provider [phone] Reason for Visit Reason Comments Stroke Ref. Dr. Page Appointment Request (Routine) - Closed Specialty Diagnoses / Procedures Referred By Contact Refer red To Contact Neurology Diagnoses Infarction Cerebral (HCC) Dakotah Page M.D. [facility] Procedures Consult [address] [place], [place] [address] Referral ID Status Reason Start Date Expiration Date Visits Requ ested Visits Authorized [id number] Closed 01/11/2022 07/10/2022 1 1 Encounter Details Date Type Department Care Team Description 02/27/2022 Comprehensive Visit Department of Mari Lala Stroke (HCC) (Primary Dx); Neurology in [place], Hemianopsia Jonathan onymous Right [place], [place] M.P.H. [address] [facility] [address] [place], [place] [phone] Social History Tobacco Use Types Packs/Day [...] do you attend hoahaoism or Never 2021 worship services? Do you belong to any clubs or No 10/09/2021 organizations such as hoahaoism groups, unions, fraSpruceling or athletic groups, or school groups? How [...] have completed or the highest Martin, MEd, REWIND OPERATOR, CAYDEN) degree you have received? Sex [...] Body Mass Index 26.8 10/09/2021 3:28 PM SUPERVISOR CAR INSTALLATIONS documented in this encounter Consult Notes Mari Lala M.D., M.P.H. - 02/27/2022 2:30 PM CDT SUBJECTIVE CHIEF COMPLAINT / REASON FOR VISIT Beth Costa is a 76 y.o. male who presents for evaluation of Stroke (Ref. Dr. Page). HISTORY OF PRESENT ILLNESS Patient had evanescent right-sided motor weakness when he was on vacation in [facility] on 12/23/2021. These resolved and the left. The symptoms then recurred a shortly thereafter and he was readmitted to [facility] and the right-sided weakness of the arm [...] that the patient was discharged yesterday from [facility] after having a TIA and completely recovering. His states that the patient was getting out of the car this morning around 1100 when the patient had right sided weakness and slower speech. He was admitted yesterday for his TIA for right sided weakness. His heart rate was noted to be in the 30's per compressor technician. The patient denies chest pain, shortnessof breath [...] By: Dhiraj Ospina MD 12/24/2021 8:09 [place] [id number] Transthoracic Echocardiogram Report Name: BETH COSTA Study Date: 12/24/2021 Performing Location: [place] : 1945 Gender: Male Height: 72 in [...] (HCC) 10/16/2009 Pulmonary symptomatology, diagnosis at the [place] unclear, but probably some degree of COPD. [...] INSERTION INTRAOCULAR LENS Left 04/2008 At the [place] ??? LASER OF PROSTATE W/ GREEN LIGHT PVP 08/28/2016 Greenlight photoselective vaporization of the prostate and cystoscopy with bladder biopsy and fulguration of a 2cm area; 08/28/[address] Prasanna Bernal at the [facility]. ??? TONSILLECTOMY ??? TONSILLECTOMY 1967 ??? [...] Disp: , Rfl: ??? PEN NEEDLE, DIABETIC [facility], Yani Fine 30 disposable needles. For use [...] , Rfl: ??? SYRINGE-NEEDLE,INSULIN,0.5 ML (INSULIN SYRINGE [facility]), , Disp: , Rfl: ??? torsemide (DEMADEX) [...] Master's degree (e.g., MA, MS, Martin, MEd, REWIND OPERATOR, CAYDEN) Occupational History Employer: RETIRED Tobacco [...] and Family: Once a week ??? Attends Gnosticism Services: Never ??? Active Member of Clubs [...] Alert and oriented x 4. CRANIAL NERVES: ten pin bowling centre manager II-XII has a right beverly facial weakness [...] PLAN Impression: Encounter Diagnoses Name Primary? Stroke ([facility]) Yes ??? Hemianopsia Homonymous Right Patient's homonymous [...] as of this encounter Care Teams Mobile Application Architect Relationship Specialty Start Date End Date Shayla Alford D.O. PCP - General Internal Medicine 05/22/20 [address], [place] [address] documented as of this encounter
--- OUTSIDE RECORDS SUMMARY | 2022-05-28 07:05 | XMS_ITS | Encounter Summary ---
:1945 Author Organization [facility] Address [address] [place] [address] Care Team Providers Name Role Phone Shayla Alford D.O. Primary Care Provider [phone] Encounter Details Date Type Department Care Team Description 12/26/2021 Orders Only Department of Internal [place] Medicine in [place], [place].Jason Wade [place] [address] [place] [phone] (Wo rk) Social History Tobacco Use Types [...] do you attend gnosticism or Never 2021 mormon services? Do you [...] have completed or the highest Martin, MEd, DOGGER, CAYDEN) degree you have received? Sex Assigned [...] - General Internal Medicine 05/22/[address] [phone] documented as of this encounter
--- OUTSIDE RECORDS SUMMARY | 2022-05-28 07:05 | XMS_ITS | Encounter Summary ---
:1945 Author Organization [facility] Address [address] [place] [address] Care Team Providers Name Role Phone Shayla Alford D.O. Primary Care Provider Reason for Visit Reason Comments canceled colonoscopy Encounter Details Date Type Department Care Team Description 01/01/2022 Clinical Communication Department of Francisco Aguilar [facility] General Surgery in P, M.DMauro colonoscopy [place], [place] [address] [place] [phone] Social History Tobacco Use [...] do you attend moravian or Never 2021 latter day services? Do [...] have completed or the highest Martin, MEd, WOODS LABORER, CAYDEN) degree you have received? Sex [...] to remove from Snap[employer], patient removed from [place]. documented in this encounter Plan of Treatment Not on filedocumented as of this encounter Visit Diagnoses Not on filedocumented in this encounter Additional Health Concerns Assessment Noted Time PHQ-9 Depression Total Score: 18 04/28/2018 11:27 AM C DT documented as of this encounter Care Teams Front Office Secretary Relationship Specialty Start Date End Date Shayla Alford D.O. PCP - General Internal Medicine 05/22/[address] [phone] documented as of this encounter
--- OUTSIDE RECORDS SUMMARY | 2022-05-28 07:05 | XMS_ITS | Encounter Summary ---
:1945 Author Organization [facility] Address [address] [place] [address] Care Team Providers Name Role Phone Shayla Alford D.O. Primary Care Provider [phone] Reason for Referral Physical Therapy (Routine) - Authorized Specialty Diagnoses / Procedures Referred By Contact Refer red To Contact Diagnoses Stroke (HCC) Mari Lala M.D., External, Referring M.P.H. Provider [address] [place] [address] Referral ID Status Reason Start Expiration Visits Visits Date Date Requested Authorized [id number] Authorized Service not 03/25/2022 03/25/2023 1 1 available in [facility] Encounter Details Date Type Department Care Team Description 03/19/2022 Clinical Communication Department of Sleep Mair Lala, Medicine in [place], M.P .H. [place] [address] [place], [place] [phone] [phone] Social History Tobacco Use Types Packs/Day Years [...] do you attend alevism or Never 2021 synagogue services? Do you [...] have completed or the highest Martin, MEd, ELEMENTARY ESL TEACHER, CAYDEN) degree you have received? Sex [...] Referral to go to Ruchi Roberto in [place]. Telephone Encounter - Mamta Olivares - 03/19/2022 1:27 PM CDT Reason for Communication: Patients is calling he has had a stroke and is in [facility] and the PT department there are discontinuing his PT because they feel they have gotten him as far as they can. They would like to have him evaluated and physical therapy at [facility] to see ifadditional progress [...] documented as of this encounter Care Teams Locomotive Mechanic Apprentice Relationship Specialty Start Date End Date Shayla Alford D.O. PCP - General Internal Medicine 05/22/20 [address], [place] [address] documented as of this encounter
--- OUTSIDE RECORDS SUMMARY | 2022-05-28 07:05 | XMS_ITS | Encounter Summary ---
:1945 Author Organization [facility] Address [address] [place] [address] Care Team Providers Name Role Phone Shayla Alford D.O. Primary Care Provider [phone] Reason for Visit Reason Comments Form Review [facility] Encounter Details Date Type Department Care Team Description 02/28/2022 Clinical Communication Department of Alexys marin Review Internal Medicine Shayla queen ([facility] in [place], D.O. - labs ) [place] [address] [place] [phone] Social History Tobacco Use [...] completed or the highest Martin, MEd, AUTO SALVAGE WORKER, CAYDEN) degree you have received? Sex Assigned at Date Recorded Male 05/21/2018 2:34 PM CDT documented as of this encounter Miscellaneous Notes Telephone Encounter - Vanesa Lee - 03/04/2022 8:40 AM CDT Form completed by the provider. Faxed back and sent to scanning. Telephone Encounter - Vanesa Lee - 02/28/2022 2:45 PM CDT Form emailed to Dr. Franklin Dejesus for review/signature CHILD ABUSE WORKER: Ugo Blanco PHONE NUMBER: [phone] INFO REQUESTED: Labs INSTRUCTIONS: Fax back to [phone] documented in this encounter Plan of Treatment Not on filedocumented as of this encounter Visit Diagnoses Not on filedocumented in this encounter Additional Health Concerns Assessment Noted Time PHQ-9 Depression Total Score: 18 04/28/2018 11:27 AM C DT documented as of this encounter Care Teams Hotel Services Sales Representative Relationship Specialty Start Date End Date Shayla Alford D.O. PCP - General Internal Medicine 05/22/202199 [address] [phone] documented as of this encounter"
--- OUTSIDE RECORDS SUMMARY | 2022-05-28 07:05 | XMS_ITS | Encounter Summary ---
:1945 Author Organization [facility] Address [address] [place] [address] Care Team Providers Name Role Phone Shayla Alford D.O. Primary Care Provider [phone] Reason for Visit Reason Comments Appointment Encounter Details Date Type Department Care Team Description 01/31/2022 Clinical Communication Department of Urology Lea Morin, Appointment in [facility] R.N. [address] [place] [address] [address] [place], [place] [phone] Social History Tobacco Use Types Packs/Day Years [...] do you attend bahai or Never 2021 congregational services? Do you [...] have completed or the highest Martin, MEd, CAN DRAGGER, CAYDEN) degree you have received? Sex Assigned at Date Recorded Male 05/21/2018 2:34 PM CDT documented as of this encounter Miscellaneous Notes Telephone Encounter - Jimena Copeland R.N. - 02/04/2022 4:31 PM CDT Patient scheduled for follow-up on 03/04/22 per patients Diallo. Telephone Encounter - Lea Morin R.N. - 02/04/2022 10:14 AM CDT Left message for living facility nurse house manager, Viri, following up with last week to inquire about care conference, non urogynecology physician cytology urine test if resulted to fax [...] R.N. - 01/31/2022 10:06 AM CDT [facility] nurse house manager, Viri, called urology to confirm urology appointment andto inform team that patient is currently in rehab at the facility but is total care and total lift. Patient does not have a catheter but Viri is willing to collect urine for non urogynecology physician cytology. Viri further mentions again patient is total care, total lift and inquired about priority in care for patient as she's unsure if she'd be able to arrange transportation. With discussion, likelihood of patientstaying prison at longterm, massive stroke who is total care and total lift and not sure howwell he'll tolerate transportation or clinic visit. Care conference at longterm with staff and patient's is today, 01/31/22, in which Viri is asked to inform urology if any discussion about plan of care, in particular to clinic urology visits, bladder cancer. Patient is due for 3 month bladder cancer surveillance, which was scheduled 02/11/22 and cancelled due to patient's current situation and Dr. Bernal not being in clinic that day. Non urogynecology physician cytology urine order faxed to [facility] for Viri to collect urine and will fax back to [facility]. Will also inform Dr. Bernal of patient's change in health and advise if anything further needs. documented in this encounter Plan of Treatment Not on filedocumented as of this encounter Visit Diagnoses Not on filedocumented in this encounter Additional Health Concerns Assessment Noted Time PHQ-9 Depression Total Score: 18 04/28/2018 11:27 AM C DT documented as of this encounter Care Teams Floor Sander Relationship Specialty Start Date End Date Shayla Alford D.O. PCP - General Internal Medicine 05/22/20 [address] [place] [phone] documented as of this encounter
--- OUTSIDE RECORDS SUMMARY | 2022-05-28 07:05 | XMS_ITS | Encounter Summary ---
:1945 Author Organization [facility] Address [address] [place] [address] Care Team Providers Name Role Phone Shayla Alford D.O. Primary Care Provider [phone] Encounter Details Date Type Department Care Team Description 02/04/2022 Clinical Communication Department of Urology Prasanna Bernal in [place], [place] M.D. [address] [place] [address] [place], [place] [phone] Social History Tobacco Use Types Packs/Day [...] do you attend uatsdin or Never 2021 anglican services? Do you [...] have completed or the highest Martin, MEd, KICK PLATE INSTALLER, CAYDEN) degree you have received? Sex [...] documented as of this encounter Care Teams Ehs Teacher Relationship Specialty Start Date End Date Shayla Alford D.O. PCP - General Internal Medicine 05/22/[address] [phone] documented as of this encounter
--- OUTSIDE RECORDS SUMMARY | 2022-05-28 07:05 | XMS_ITS | Encounter Summary ---
:1945 Author Organization [facility] Address [address] [place] [address] Care Team Providers Name Role Phone Shayla Alford D.O. Primary Care Provider Encounter Details Date Type Department Care Team Description 03/27/2022 Clinical Communication Department of Neurology Mari Llaa, in [place] [facility] cameron Whyte, M.P.H. [address] [place] [address] [address] [facility] [place] [phone] Social History Tobacco Use Types Packs/Day [...] do you attend confucianism or Never 2021 hinduism services? Do you [...] completed or the highest Martin, MEd, MANAGER PROPOSAL, CAYDEN) degree you have received? Sex Assigned [...] 87 days after being in hospital in [place]. Today is the 87 th day. Need [...] documented as of this encounter Care Teams Radiator Repairer Relationship Specialty Start Date End Date Shayla Alford D.O. PCP - General Internal Medicine 05/22/[address] [phone] documented as of this encounter
--- OUTSIDE RECORDS SUMMARY | 2022-05-28 07:06 | XMS_ITS | Encounter Summary ---
:1945 Author Organization [facility] Address [address] [place] [address] Care Team Providers Name Role Phone Shayla Alford D.O. Primary Care Provider [phone] Encounter Details Date Type Department Care Team Description 11/07/2021 Clinical Communication Department of Internal Andrei Dejesus Medicine in [place], [place], [place].O Mauro [place] [address] [place] [phone] Social History Tobacco Use Types Packs/Day Years [...] do you attend jewish or Never 2021 yarsanism services? Do you [...] have completed or the highest Martin, MEd, TIMBER WATCHMAN, CAYDEN) degree you have received? Sex Assigned at Date Recorded Male 05/21/2018 2:34 PM CDT documented as of this encounter Miscellaneous Notes Telephone Encounter - Jacquie Hamilton L.P.N. - 11/07/2021 11:35 AM SPIDER ASSEMBLER Patient called and given recent lab findings along with advisement from provider per Dr Reid direction. Copy of message sent to patient via his patient portal per his direction ER ASSEMBLER Telephone Encounter - Jacquie Hamilton LMauroPMauroN. - 11/07/2021 11:33 AM SPIDER ASSEMBLER ----- Message from Shayla Alford D.O. sent at 11/07/2021 11:24 AM SPIDER ASSEMBLER ----- Please, call patient following information. Good [...] if he is ableto obtain from the [place]. once the Trulicity has started, they will likely start decreasing his insulindose to avoid hypoglycemia episodes. I placed a referral for him to also work with our pharmacist jian who does excellent job at titrating medications especially diabetic medications Electronically signed by: Shayla Alford D.O. 11/07/21 11:23 AM SPIDER ASSEMBLER ER ASSEMBLER documented in this encounter Plan of Treatment Not on filedocumented as of this encounter Visit Diagnoses Not on filedocumented in this encounter Additional Health Concerns Assessment Noted Time PHQ-9 Depression Total Score: 18 04/28/2018 11:27 AM C DT documented as of this encounter Care Teams Food And Beverage Director Relationship Specialty Start Date End Date Shayla Alford D.O. PCP - General Internal Medicine 05/22/[address] [phone] documented as of this encounter
--- OUTSIDE RECORDS SUMMARY | 2022-05-28 07:06 | XMS_ITS | Encounter Summary ---
:1945 Author Organization [facility] Address [address] [place] [address] Care Team Providers Name Role Phone Shayla Alford D.O. Primary Care Provider Reason for Referral Outpatient (Routine) - Authorized Specialty Diagnoses / Procedures Referred By Contact Refer red To Contact Pharmacy Diagnoses Diabetes Mellitus Type 2 With Diabetic Chronic Kidney Disease (HCC) Shayla Salazar [facility] Region D.O. [address] [place] [phone] Referral ID Status Reason Start Date Expiration Date Visits V isits Requested Authorized [id number] Authorized 11/06/2021 11/06/2022 1 1 ICE OR WORK DISPATCHER Outpatient (Routine) - Closed Specialty Diagnoses / Procedures Referred By Contact Refer red To Contact Diagnoses Preoperative Exam Shayla Alford [facility] Region Procedures ECG 12 Lead D.O. [address] [place] [phone] Referral ID Status Reason Start Date Expiration Date Visits Requ ested Visits Authorized [id number] Closed 11/06/2021 11/06/2022 1 1 ICE OR WORK DISPATCHER Reason for Visit Reason Comments Pre-op Exam 11/14 Dr. 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 [facility] Region [address] [place] [address] Referral ID Status Reason Start Date Expiration Date Visits Requ ested Visits Authorized [id number] Closed 10/25/2021 10/25/2022 1 1 Encounter Details Date Type Department Care Team Description 11/06/2021 Office [facility] (Congestive) Heart Failure (HCC) (Primary Dx); Internal Medicine in Shayla D. O. 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 Do you [...] or the highest Martin, MEd, HEALTH CARE MANAGER, CAYDEN) degree you have received? Sex Assigned at Date Recorded Male 05/21/2018 2:34 PM CDT documented as of this encounter H&P Notes Shayla Alford D.O. - 11/06/2021 9:30 AM CST INTERNAL MEDICINE PREOPERATIVE EXAM: DATE OF SERVICE 11/06/2021 LOCATION OF SERVICE [facility] [place] CHIEF COMPLAINT/REASON FOR VISIT Preoperative exam Chief [...] 11/17/2020 showed an EF of 50%, with [id number]-rx-[id number] mitral valve regurgitation. His blood pressure has [...] was 8. The patient follows with [place] [facility] where he has a dietitian as well as an microbiology lab analyst. Due to worsening kidney function, his metformin [...] discussed this with his provider at the [facility]. He would like a prescription sent in to the [facility] today. We discussed importance of titration of the medication, and ensuring he does not have any hypoglycemia since he is also oninsulin. He assured me that [facility] and that he will be keeping a close eye on his blood glucose level. We are happy to see him for diabetic management here as well in [place]. Hementions that he is required to have [...] 08/28/[address] Prasanna Bernal at the [facility]. ??? TONSILLECTOMY ??? TONSILLECTOMY 1969 ??? [...] Master's degree (e.g., MA, MS, Martin, MEd, HEALTH CARE MANAGER, CAYDEN) Occupational History Employer: RETIRED Tobacco Use [...] and Family: Once a week ??? Attends Druze Services: Never ??? 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 Echocardiogram 11/17/2020 showed an EF of 50%, with [id number]-lc-[id number] mitral valve regurgitation. His blood pressure has [...] was 8. The patient follows with [place] [facility] where he has a dietitian as well as an microbiology lab analyst. Due to worsening kidney function, his metformin [...] discussed this with his provider at the [facility]. He would like a prescription sent in to the [place] today. We discussed importance of titration of the medication, and ensuring he does not have any hypoglycemia since he is also oninsulin. He assured me that he [facility] and that he will be keeping a close eye on his blood glucose level. We are happy to see him for diabetic management here as well in [place]. 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 11/06/21 9:49 AM SERVICE OR WORK DISPATCHER Time spent 58 minutes ICE OR WORK DISPATCHER documented in this encounter Plan of Treatment Scheduled Referrals Name Type Priority Associated Order Schedule Diagnoses Pharmacy - Outpatient Referral Routine Diabetes Mellitus Exp ected: Medication therapy Type 2 With 2 management consult Diabetic Chronic (Appr oximate), (clinic) Kidney Disease Expires: (HCC) 02/03/2023 documented as of this encounter Results ECG 12 Lead (11/07/2021 8:40 AM SERVICE OR WORK DISPATCHER) P athologist Signature Ventricular Rate 47 BPM MUSE ECG/Min IN Interval 230 ms MUSE QRSD Interval 112 ms MUSE QT Interval 498 ms MUSE QTC Interval 440 ms MUSE P [place] 87 degrees MUSE R [place] -35 degrees MUSE T Wave [place] 6 degrees MUSE Specimen Anatomical Collection Method Collection Time Receive d Time (Source) Location / / Volume Laterality 11/07/2021 8:40 AM 2 9:10 SERVICE OR WORK DISPATCHER AM SERVICE OR WORK DISPATCHER Impressions MUSE - 11/07/2021 9:10 AM SERVICE OR WORK DISPATCHER Marked sinus bradycardia with 1st degree A-V [...] CBC with Differential, Blood (11/07/2021 8:32 AM SERVICE OR WORK DISPATCHER) Patholo gist Method Time Signature Hemoglobin 11.8 (L) 13.2 - 11/07/2021 [place] 16.6 g/dL 8:39 AM SERVICE OR WORK DISPATCHER Hematocrit 34.6 (L) 38.3 - 11/07/2021 [place] 48.6 % 8:39 AM SERVICE OR WORK DISPATCHER Erythrocytes 3.86 (L) 4.35 - 11/07/2021 [place] 5.65 8:39 AM SERVICE OR WORK DISPATCHER x10(12)/L MCV 89.6 78.2 - 11/07/2021 [place] 97.9 fL 8:39 AM SERVICE OR WORK DISPATCHER RBC Distrib Width 13.8 11.8 - 11/07/2021 [place] 14.5 % 8:39 AM SERVICE OR WORK DISPATCHER Platelet Count 187 135 - 317 11/07/2021 [place] x10(9)/L 8:39 AM SERVICE OR WORK DISPATCHER Leukocytes 6.5 3.4 - 9.6 11/07/2021 [place] x10(9)/L 8:39 AM SERVICE OR WORK DISPATCHER Neutrophils 4.26 1.56 - 11/07/2021 [place] 6.45 8:39 AM SERVICE OR WORK DISPATCHER x10(9)/L Lymphocytes 1.11 0.95 - 11/07/2021 [place] 3.07 8:39 AM SERVICE OR WORK DISPATCHER x10(9)/L Monocytes 0.53 0.26 - 11/07/2021 [place] 0.81 8:39 AM SERVICE OR WORK DISPATCHER x10(9)/L Eosinophils 0.53 (H) 0.03 - 11/07/2021 OW[place] 0.48 8:39 AM SERVICE OR WORK DISPATCHER x10(9)/L Basophils 0.10 (H) 0.01 - 11/07/2021 [place] 0.08 8:39 AM SERVICE OR WORK DISPATCHER x10(9)/L Specimen Anatomical Collection Method Collection Time Receive d Time (Source) Location / / Volume Laterality Blood (Blood, 11/07/2021 8:32 AM 11/07/19 22 8:39 Venous) SERVICE OR WORK DISPATCHER AM SERVICE OR WORK DISPATCHER Shayla Alford D.O. LAB BLOOD ADD-ON Performing Organization Address City/State/ZIP Code Phon e Number [facility]- [address] [place] [address] [facility] [place] [address] System in [place] [address] (ABNORMAL) Basic Metabolic Panel (11/07/2021 8:32 AM SERVICE OR WORK DISPATCHER) Analysis Performed At Patho logist Time Signature Potassium, P 4.0 3.6 - 5.2 11/07/2021 [place] mmol/L 9:12 AM SERVICE OR WORK DISPATCHER Sodium, P 138 135 - 145 11/07/2021 [place] mmol/L 9:12 AM SERVICE OR WORK DISPATCHER Chloride, P 107 98 - 107 11/07/2021 [place] mmol/L 9:12 AM SERVICE OR WORK DISPATCHER Bicarbonate, P 21 (L) 22 - 29 11/07/2021 [place] mmol/L 9:12 AM SERVICE OR WORK DISPATCHER Anion Gap, P 10 7 - 15 11/07/2021 [place] 9:12 AM SERVICE OR WORK DISPATCHER BUN (Blood Urea 28 (H) 8 - 24 11/07/2021 [place] Nitrogen), P mg/dL 9:12 AM SERVICE OR WORK DISPATCHER Creatinine 1.46 (H) 0.74 - 11/07/2021 [place] 1.35 mg/dL 9:12 AM SERVICE OR WORK DISPATCHER eGFR-Black/Afri 53 (L) >=60 11/07/2021 [place] can Russian mL/min/BSA 9:12 AM SERVICE OR WORK DISPATCHER Comment: ----ADDITIONAL INFORMATION---- Estimated GFR calculated using the 2009 CKD_EPI creatinine equation. eGFR Non-Black/ 45 (L) >=60 mL/min/BSA 11/07/2021 9:12 AM SERVICE OR WORK DISPATCHER [facility] [place] Comment: ----ADDITIONAL INFORMATION---- Estimated GFR calculated using the 2009 CKD_EPI creatinine equation. Calcium, Total, P 8.8 8.8 - 10.2 mg/dL 11/07/2021 9:12 AM SERVICE OR WORK DISPATCHER [facility] Glucose, P 157 (H) 70 - 140 mg/dL 11/07/2021 9:12 AM SERVICE OR WORK DISPATCHER O MARCK Specimen Anatomical Collection Method Collection Time Receive d Time (Source) Location / / Volume Laterality Blood (Blood, 11/07/2021 8:32 AM 11/07/19 22 8:46 Venous) SERVICE OR WORK DISPATCHER AM SERVICE OR WORK DISPATCHER Shayla Alford D.O. LAB BLOOD ADD-ON Performing Organization Address City/State/ZIP Code Phon e Number [facility]- [address] [place] [address] [place] [address] System in [place] [address] (ABNORMAL) Hemoglobin A1c (11/07/2021 8:32 AM SERVICE OR WORK DISPATCHER) P athologist Signature Hemoglobin A1c, 9.5 (H) 4.2 - 5.6 11/07/2021 [place] B % 8:51 AM SERVICE OR WORK DISPATCHER Comment: Hemoglobin A1c values greater than or eq ual to 6.5 percent are diagnostic for diabetes mellitus. ?? Diagnosis should be confirmed by repeat testing. ??In diabet ic patients, HbA1c goals should be discussed with healthcar e provider. Specimen Anatomical Collection Method Collection Time Receive d Time (Source) Location / / Volume Laterality Blood (Blood, 11/07/2021 8:32 AM 11/07/19 8:51 Venous) SERVICE OR WORK DISPATCHER AM SERVICE OR WORK DISPATCHER Shayla Alford D.O. 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 PCP - General Internal Medicine 05/22/202199 [place] [address] documented as of this encounter
--- OUTSIDE RECORDS SUMMARY | 2022-05-28 07:06 | XMS_ITS | Encounter Summary ---
:[address] [facility] Address [address] [place] [address] Care Team Providers Name Role Phone Shayla Alford D.O. Primary Care Provider [phone] Reason for Visit Reason Comments Form Review [facility] statement of barney ertifying physician Encounter Details Date Type Department Care Team Description 11/14/2021 Clinical Communication Department of Alexys marin Review Internal Medicine Shayla queen ([facility] in [place] statement [facility] [address] certifying [address] [facility] physician) [place] [phone] Social History Tobacco Use Types Packs/Day Years [...] do you attend muslim or Never 2021 faith services? Do you [...] have completed or the highest Martin, MEd, ENCHILADA MAKER, CAYDEN) degree you have received? Sex Assigned at Date Recorded Male 05/21/2018 2:34 PM CDT documented as of this encounter Miscellaneous Notes Telephone Encounter - Sheyla Obrien - 11/15/2021 4:41 PM CST Form faxed back to facility and sent for scanning. R PLANT INSPECTOR Telephone Encounter - Sheyla Obrien - 11/14/2021 9:48 AM CST Form was emailed to Dr. Alford for electronic review/signature. PHLEBOTOMY TECHNOLOGIST: Gabe CAIS PHONE NUMBER: [phone] INFO REQUESTED: Statement of certifying physician INSTRUCTIONS: Fax information to [phone] R PLANT INSPECTOR documented in this encounter Plan of Treatment Not on filedocumented as of this encounter Visit Diagnoses Not on filedocumented in this encounter Additional Health Concerns Assessment Noted Time PHQ-9 Depression Total Score: 18 04/28/2018 11:27 AM C DT documented as of this encounter Care Teams Directory Clerk Relationship Specialty Start Date End Date Shayla Alford D.O. PCP - General Internal Medicine 05/22/[address] [phone] documented as of this encounter
--- OUTSIDE RECORDS SUMMARY | 2022-05-28 07:06 | XMS_ITS | Encounter Summary ---
:1945 Author Organization [facility] Address [address] [place] [address] Care Team Providers Name Role Phone Shayla Alford D.O. Primary Care Provider [phone] Reason for Visit Reason Comments URO SURGERY ON 11-14 Encounter Details Date Type Department Care Team Description 10/25/2021 Clinical Communication Department of Alexys URO SURGERY ON 11-14 Internal Medicine Shayla queen in [place], D.O. [place] [address] [place] [phone] Social History Tobacco Use Types Packs/Day [...] have completed or the highest Martin, MEd, EMS DIRECTOR, CAYDEN) degree you have received? Sex Assigned at Date Recorded Male 05/21/2018 2:34 PM CDT documented as of this encounter Miscellaneous Notes Telephone Encounter - Jimena Copeland RMauroNMauro - 10/25/2021 3:53 PM CST Noted in desk calendar. MOTIVE PRODUCTION WORKER Telephone Encounter - Justina Wilkins - 10/25/2021 3:46 PM CST SURGEON: DR. STACY ASSIST: NONE PRE-OP DATE: 11-14-[address] MCCARTY NASAL SWAB: 11-11-21 SURGERY DATE: 11-14-21 DIAGNOSIS: BLADDER TUMOR/ CANCER PROCEDURE: 1. TRANSURTHERAL RESECTION OF BLADDER TUMOR 2. RANDOM BLADDER BIOPSIES 3. ANESTHESIA: [facility] WILL CALL WITH ARRIVAL TIME. MOTIVE PRODUCTION WORKER documented in this encounter Plan of Treatment Not on filedocumented as of this encounter Visit Diagnoses Not on filedocumented in this encounter Additional Health Concerns Assessment Noted Time PHQ-9 Depression Total Score: 18 04/28/2018 11:27 AM C DT documented as of this encounter Care Teams Manager Social Work Relationship Specialty Start Date End Date Shayla Alford D.O. PCP - General Internal Medicine 05/22/[address]199 [address] [phone] documented as of this encounter
--- OUTSIDE RECORDS SUMMARY | 2022-05-28 07:06 | XMS_ITS | Encounter Summary ---
:1945 Author Organization [facility] Address [address] [place] [address] Care Team Providers Name Role Phone Shayla Alford D.O. Primary Care Provider [phone] Reason for Visit Reason Comments Pre-op Exam Diabetes Mellitus Knee Pain Fell about a month ago Outpatient (Routine) - Closed Specialty Diagnoses / Procedures Referred By Contact Refer red To Contact Community Internal Diagnoses Preoperative Exam ARMAAN Alford [facility] Tluio Mcguire [address] [place] [address] Referral ID Status Reason Start Date Expiration Date Visits Requ ested Visits Authorized [id number] Closed 09/13/2021 09/13/2022 1 1 Encounter Details Date Type Department Care Team Description 11/29/2021 Office Visit Department of Internal Rocío sanders Systolic (Congestive) Heart Failure (HCC) (Primary Dx); Medicine in [facility] , Coleman Mcguire Preoperative Exam; [place] [address] Diabetes Mellitus Type 2 Hyperglycemia ( HCC); [address] [place], [place] Hypothyroidism; [place] [address] Hypertension Essential Primary [phone] Social History Tobacco [...] do you attend hinduism or Never 2021 mu-ism services? Do you [...] have completed or the highest Martin, MEd, HEEL SORTER, CAYDEN) degree you have received? Sex Assigned at Date Recorded Male 05/21/2018 2:34 PM CDT documented as of this encounter Last Filed Vital Signs Vital Sign Reading Time Taken Comments Blood Pressure 121/65 11/29/2021 11:27 AM STRUCTURAL DRAFTER Pulse 65 11/29/2021 11:27 AM STRUCTURAL DRAFTER Temperature 36.8 ??C (98.2 ??F) 11/29/2021 11:27 AM STRUCTURAL DRAFTER Respiratory Rate - - Oxygen Saturation - - Inhaled Oxygen Concentration - - Weight 101 kg (223 lb 1.7 oz) 11/29/2021 11:27 AM STRUCTURAL DRAFTER Height - - Body Mass Index 29.6 10/09/2021 3:28 PM STRUCTURAL DRAFTER documented in this encounter Patient Instructions Patient InstructionsShayla Alford D.O. - 11/29/2021 11:30 AM STRUCTURAL DRAFTER Hold Plavix 5 days before procedure or starting today Take half of your long acting Lantus friday evening (14 units) Hold your short acting insulin or NovoLog the AM of the procedure Meet with our pharmacist Zoya for insulin adjustment since you are Starting Ozempic. CTURAL DRAFTER documented in this encounter H&P Notes Shayla Alford D.O. - 11/29/2021 11:30 AM CST INTERNAL MEDICINE PREOPERATIVE EXAM: DATE OF SERVICE 11/29/2021 LOCATION OF SERVICE [facility] CHIEF COMPLAINT/REASON FOR VISIT Preoperative exam [...] 11/17/2020 showed an EF of 50%, with bnvl-ha-urthahbx mitral valve regurgitation. His blood pressure has [...] at 9.5. The patient [facility] where [facility] has a dietitian as well as an geological engineering teacher. Due to worsening kidneyfunction, his metformin had [...] was not able to obtainTrulicity at the [facility] but he was able to receive Ozempic. [...] at the [facility]. ??? TONSILLECTOMY ??? TONSILLECTOMY 1967 ??? [...] Master's degree (e.g., MA, MS, Martin, MEd, HEEL SORTER, CAYDEN) Occupational History Employer: RETIRED Tobacco Use [...] and Family: Once a week ??? Attends Yarsani Services: Never ??? Active Member of Clubs [...] mL 3 ??? SYRINGE-NEEDLE,INSULIN,0.5 ML (INSULIN SYRINGE [facility]) ??? torsemide (DEMADEX) 20 mg tablet Take [...] 11/17/2020 showed an EF of 50%, with xzjs-vq-kymrcjoi mitral valve regurgitation. His blood pressure has [...] has a dietitian as well as an geological engineering teacher. Due to worsening kidneyfunction, his metformin had [...] was not able to obtainTrulicity at the [facility] but he was able to receive Ozempic. [...] by: Shayla Alford D.O. 11/29/21 11:35 AM STRUCTURAL DRAFTER CTURAL DRAFTER documented in this encounter Plan of Treatment [...] documented as of this encounter Care Teams Box Order Person Relationship Specialty Start Date End Date Shayla Alford D.O. PCP - General Internal Medicine 05/22/[address] [place] [address] documented as of this encounter
--- OUTSIDE RECORDS SUMMARY | 2022-05-28 07:06 | XMS_ITS | Encounter Summary ---
:1945 Author Organization [facility] Address [address] [place] [address] Care Team Providers Name Role Phone Shayla Alford D.O. 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 Do you [...] completed or the highest Martin, MEd, ROLLER DIE CUTTING MACHINE OPERATOR, CAYDEN) degree you have received? [...] to [facility] scan Sofya sensor 5 times daily and [...] SYRINGE [facility]) torsemide (DEMADEX) 20 Take [...] Shayla Alford D.O. - 11/07/2021 11:24 AM CALL CENTER NURSE Please, call patient following information. Good news, [...] by: Shayla Alford D.O. 11/07/21 11:23 AM CALL CENTER NURSE CENTER NURSE documented in this encounter Plan of Treatment Not on filedocumented as of this encounter Procedures Procedure Name Priority Date/Time Associated Diagnosis Comme nts CBC WITH Routine 11/07/2021 8:32 AM Preoperative Exam Resu lts for this DIFFERENTIAL, B CALL CENTER NURSE procedure ar e in the results section. HEMOGLOBIN A1C, B Routine 11/07/2021 8:32 AM Diabetes Mellitus Results for this CALL CENTER NURSE Type 2 With Diabetic procedu re are in Chronic Kidney the results Disease (HCC) section. BASIC METABOLIC Routine 11/07/2021 8:32 AM Preoperative Exam R esults for this PANEL, S/P CALL CENTER NURSE procedure are i n the results section. documented in this encounter Results (ABNORMAL) CBC with Differential, Blood (11/07/2021 8:32 AM CALL CENTER NURSE) [facility] Method Time Signature Hemoglobin 11.8 (L) 13.2 - 11/07/2021 [facility] 16.6 g/dL 8:39 AM CALL CENTER NURSE Hematocrit 34.6 (L) 38.3 - 11/07/2021 [facility] 48.6 % 8:39 AM CALL CENTER NURSE Erythrocytes 3.86 (L) 4.35 - 11/07/2021 [facility] 5.65 8:39 AM CALL CENTER NURSE x10(12)/L MCV 89.6 78.2 - 11/07/2021 [facility] 97.9 fL 8:39 AM CALL CENTER NURSE RBC Distrib Width 13.8 11.8 - 11/07/2021 [facility] 14.5 % 8:39 AM CALL CENTER NURSE Platelet Count 187 135 - 317 11/07/2021 [facility] x10(9)/L 8:39 AM CALL CENTER NURSE Leukocytes 6.5 3.4 - 9.6 11/07/2021 [facility] x10(9)/L 8:39 AM CALL CENTER NURSE Neutrophils 4.26 1.56 - 11/07/2021 [facility] 6.45 8:39 AM CALL CENTER NURSE x10(9)/L Lymphocytes 1.11 0.95 - 11/07/2021 [facility] 3.07 8:39 AM CALL CENTER NURSE x10(9)/L Monocytes 0.53 0.26 - 11/07/2021 [facility] 0.81 8:39 AM CALL CENTER NURSE x10(9)/L Eosinophils 0.53 (H) 0.03 - 11/07/2021 [facility] 0.48 8:39 AM CALL CENTER NURSE x10(9)/L Basophils 0.10 (H) 0.01 - 11/07/2021 [facility] 0.08 8:39 AM CALL CENTER NURSE x10(9)/L Specimen Anatomical Collection Method Collection Time Receive d Time (Source) Location / / Volume Laterality Blood (Blood, 11/07/2021 8:32 AM 11/07/19 8:39 Venous) CALL CENTER NURSE AM CALL CENTER NURSE Shayla Alford D.O. LAB BLOOD ADD-ON Performing Organization Address City/State/ZIP Code Phon e Number [facility]- [address] [place] [address] [place] [address] System in [place] [address] [facility] (ABNORMAL) Basic Metabolic Panel (11/07/2021 8:32 AM CALL CENTER NURSE) Analysis Performed At Patho logist Time Signature Potassium, P 4.0 3.6 - 5.2 11/07/2021 [facility] mmol/L 9:12 AM CALL CENTER NURSE Sodium, P 138 135 - 145 11/07/2021 [facility] mmol/L 9:12 AM CALL CENTER NURSE Chloride, P 107 98 - 107 11/07/2021 [facility] mmol/L 9:12 AM CALL CENTER NURSE Bicarbonate, P 21 (L) 22 - 29 11/07/2021 [facility] mmol/L 9:12 AM CALL CENTER NURSE Anion Gap, P 10 7 - 15 11/07/2021 [facility] 9:12 AM CALL CENTER NURSE BUN (Blood Urea 28 (H) 8 - 24 11/07/2021 [facility] Nitrogen), P mg/dL 9:12 AM CALL CENTER NURSE Creatinine 1.46 (H) 0.74 - 11/07/2021 [facility] 1.35 mg/dL 9:12 AM CALL CENTER NURSE eGFR-Black/Afri 53 (L) >=60 11/07/2021 [facility] can Syrian mL/min/BSA 9:12 AM CALL CENTER NURSE Comment: ----ADDITIONAL INFORMATION---- Estimated GFR calculated using the 2009 CKD_EPI creatinine equation. eGFR Non-Black/ 45 (L) >=60 mL/min/BSA 11/07/2021 9:12 AM CALL CENTER NURSE [facility] [place] Comment: ----ADDITIONAL INFORMATION---- Estimated GFR calculated using the 2009 CKD_EPI creatinine equation. Calcium, Total, P 8.8 8.8 - 10.2 mg/dL 11/07/2021 9:12 AM CALL CENTER NURSE [facility] Glucose, P 157 (H) 70 - 140 mg/dL 11/07/2021 9:12 AM CALL CENTER NURSE O MARCK Specimen Anatomical Collection Method Collection Time Receive d Time (Source) Location / / Volume Laterality Blood (Blood, 11/07/2021 8:32 AM 11/07/19 8:46 Venous) CALL CENTER NURSE AM CALL CENTER NURSE Shayla Alford D.O. LAB BLOOD ADD-ON Performing Organization Address City/State/ZIP Code Phon e Number [facility]- [address] [place] [facility] [place] [address] [facility] [place] [address] System in [place] [address] (ABNORMAL) Hemoglobin A1c (11/07/2021 8:32 AM CALL CENTER NURSE) P athologist Signature Hemoglobin A1c, 9.5 (H) 4.2 - 5.6 11/07/2021 [facility] B % 8:51 AM CALL CENTER NURSE Comment: Hemoglobin A1c values greater than or eq ual to 6.5 percent are diagnostic for diabetes mellitus. ?? Diagnosis should be confirmed by repeat testing. ??In diabet ic patients, HbA1c goals should be discussed with healthcar e provider. Specimen Anatomical Collection Method Collection Time Receive d Time (Source) Location / / Volume Laterality Blood (Blood, 11/07/2021 8:32 AM 11/07/19 8:51 Venous) CALL CENTER NURSE AM CALL CENTER NURSE Shayla Alford D.O. LAB BLOOD ADD-ON Performing Organization Address City/State/ZIP Code Phon e Number [facility]- [address] [place] [address] [facility] [place] [facility] [address] System in [place] [address] documented in this encounter Visit Diagnoses Diagnosis Diabetes Mellitus Type 2 With Diabetic C hronic Kidney Disease (HCC) Preoperative Exam documented in this encounter Additional Health Concerns Assessment Noted Time PHQ-9 Depression Total Score: 18 04/28/2018 11:27 AM C DT documented as of this encounter Care Teams Pantomimist Relationship Specialty Start Date End Date Shayla Alford D.O. PCP - General Internal Medicine 05/22/[address] [phone] documented as of this encounter
--- OUTSIDE RECORDS SUMMARY | 2022-05-28 07:06 | XMS_ITS | Encounter Summary ---
:1945 Author Organization [facility] Address [address] [place] [address] Care Team Providers Name Role Phone Shayla Alford D.O. Primary Care Provider [phone] Encounter Details Date Type Department Care Team Description 10/09/2021 Hospital Encounter Department of Prateek Ferrer Primary; Laboratory Medicine Melissa, Chronic Kidney Disease (CKD), Stage 3b Glomerular Filtration Rate (GFR) 30 To 44 (HCC) [facility] [address] [facility] [address] [place] [phone] Social History Tobacco Use Types Packs/Day Years [...] do you attend mandaen or Never 2021 zoroastrian services? Do you [...] have completed or the highest Martin, MEd, PURSE SEINING HAND, CAYDEN) degree you have received? Sex [...] Results f or this PANEL, S AM CLAIMS ADMINISTRATOR Essential Primar y procedure are in Chronic Kidney the results Disease (CKD), Stage section . 3b Glomerular Filtration Rate (GFR) 30 To 44 (HCC) URIC ACID, S/P Routine 10/09/2021 11:08 Hypertension Results f or this AM CLAIMS ADMINISTRATOR Essential Primar y procedure are in Chronic Kidney the results Disease (CKD), Stage section . 3b Glomerular Filtration Rate (GFR) 30 To 44 (HCC) documented in this encounter Results Uric Acid (10/09/2021 11:08 AM CLAIMS ADMINISTRATOR) P athologist Signature Uric Acid, P 7.5 3.7 - 8.0 10/09/2021 [facility] mg/dL 4:28 PM CLAIMS ADMINISTRATOR Specimen Anatomical Collection Method Collection Time Receive d Time (Source) Location / / Volume Laterality Blood (Blood, 10/09/2021 11:08 10/09/2021 4:05 Venous) AM CLAIMS ADMINISTRATOR PM CLAIMS ADMINISTRATOR Melissa Blackmon LAB BLOOD ADD-ON Performing Organization Address City/State/ZIP Code Phon e Number [facility]- [address] [place] [address] [facility] [place] [address] [facility] [address] (ABNORMAL) Renal Function Panel (10/09/2021 11:08 AM CLAIMS ADMINISTRATOR) Analysis Performed At Patho logist Time Signature Potassium, P 4.6 3.6 - 5.2 10/09/2021 [place] mmol/L 11:36 AM CLAIMS ADMINISTRATOR Sodium, P 133 (L) 135 - 145 10/09/2021 [facility] mmol/L 11:36 AM CLAIMS ADMINISTRATOR Chloride, P 98 98 - 107 10/09/2021 [facility] mmol/L 11:36 AM CLAIMS ADMINISTRATOR Bicarbonate, P 22 22 - 29 10/09/2021 [facility] mmol/L 11:35 AM CLAIMS ADMINISTRATOR Anion Gap, P 13 7 - 15 10/09/2021 [facility] 11:36 AM CLAIMS ADMINISTRATOR BUN (Blood Urea 38 (H) 8 - 24 10/09/2021 [facility] Nitrogen), P mg/dL 11:35 AM CLAIMS ADMINISTRATOR Creatinine 1.69 (H) 0.74 - 10/09/2021 [facility] 1.35 mg/dL 11:35 AM CLAIMS ADMINISTRATOR eGFR-Black/Afri 44 (L) >=60 10/09/2021 [facility] can Citizen [place] mL/min/BSA 11:35 AM CLAIMS ADMINISTRATOR Comment: ----ADDITIONAL INFORMATION---- Estimated GFR calculated using the 2009 CKD_EPI creatinine equation. eGFR Non-Black/ 38 (L) >=60 mL/min/BSA 10/09/2021 11:35 AM CLAIMS ADMINISTRATOR [facility] Comment: ----ADDITIONAL INFORMATION---- Estimated GFR calculated using the 2009 CKD_EPI creatinine equation. Calcium, Total, P 8.9 8.8 - 10.2 mg/dL 10/09/2021 11:3 5 AM CLAIMS ADMINISTRATOR [facility] Glucose, P 440 (CH) 70 - 140 mg/dL 10/09/2021 12:34 PM CLAIMS ADMINISTRATOR [facility] Albumin, P 3.6 3.5 - 5.0 g/dL 10/09/2021 11:35 AM CLAIMS ADMINISTRATOR [facility] Phosphorus (Inorganic), P 4.4 2.5 - 4.5 mg/dL 10/09/19 4:28 PM CLAIMS ADMINISTRATOR [facility] Specimen Anatomical Collection Method Collection Time Receive d Time (Source) Location / / Volume Laterality Blood (Blood, 10/09/2021 11:08 10/09/2021 4:05 Venous) AM CLAIMS ADMINISTRATOR PM CLAIMS ADMINISTRATOR Narrative [facility] - 10/09/2021 4:28 PM CLAIMS ADMINISTRATOR Specimen Information: Specimen ID: [id number] Specimen Type: Blood Specimen Collection Start Date: 10/09/19 11:08 AM Specimen Received Date: 10/09/2021 ??4:0 5 PM Specimen ID: [id number] Specimen Type: Blood Specimen Collection Start Date: 10/09/19 11:08 AM Specimen Received Date: 10/09/2021 11:09 AM Melissa lBackmon LAB BLOOD ADD-ON Performing Organization Address City/State/ZIP Code Phon e Number [facility]- [address] [place], [place] [id number] [place] [address] [place] [address] System in [place] [address] [place] [address] [facility] [address] documented in this encounter Visit Diagnoses Diagnosis Hypertension Essential Primary Chronic Kidney Disease (CKD), Stage 3b G lomerular Filtration Rate (GFR) 30 To 44 (HCC) documented in this encounter Additional Health Concerns Assessment Noted Time PHQ-9 Depression Total Score: 18 04/28/2018 11:27 AM C DT documented as of this encounter Care Teams Supervisor Ship Maintenance Services Relationship Specialty Start Date End Date Shayla Alford D.O. PCP - General Internal Medicine 05/22/[address] [place] [phone] documented as of this encounter
--- OUTSIDE RECORDS SUMMARY | 2022-05-28 07:06 | XMS_ITS | Encounter Summary ---
:1945 Author Organization [facility] Address [address] [place] [address] Care Team Providers Name Role Phone Shayla Alford D.O. Primary Care Provider [phone] Reason for Referral Outpatient (Routine) - Closed Specialty Diagnoses / Procedures Referred By Contact Refer red To Contact Diagnoses Preoperative Exam Shayla Alford [facility] Procedures ECG 12 Lead D.O. [address] [place] [phone] Referral ID Status Reason Start Date Expiration Date Visits Requ ested Visits Authorized [id number] Closed 11/06/2021 11/06/2022 1 1 F PAYROLL CLERK Reason for Visit Outpatient (Routine) - Closed Specialty Diagnoses / Procedures Referred By Contact Refer red To Contact Diagnoses Preoperative Exam Shayla Alford [facility] [place] [facility] Procedures ECG 12 Lead D.O. [address] [place] [phone] Referral ID Status Reason Start Date Expiration Date Visits Requ ested Visits Authorized [id number] Closed 11/06/2021 11/06/2022 1 1 Encounter Details Date Type Department Care Team Description 11/07/2021 Hospital Encounter Department of Rocío Preop erative Exam Laboratory Medicine in , [place]na [place]. [place] [address] [place] [phone] Social History Tobacco Use Types Packs/Day [...] do you attend mu-ism or Never 2021 taoist services? Do you [...] SOFYA) times a day. Use to [facility] scan Sofya sensor 5 times daily and [...] AM Preoperative Exam Resu lts for this CHIEF PAYROLL CLERK procedure are i n the results section . documented in this encounter Results ECG 12 Lead (11/07/2021 8:40 AM CHIEF PAYROLL CLERK) P athologist Signature Ventricular Rate 47 BPM MUSE ECG/Min LA Interval 230 ms MUSE QRSD Interval 112 ms MUSE QT Interval 498 ms MUSE QTC Interval 440 ms MUSE P [place] 87 degrees MUSE R [place] -35 degrees MUSE T Wave [place] 6 degrees MUSE Specimen Anatomical Collection Method Collection Time Receive d Time (Source) Location / / Volume Laterality 11/07/2021 8:40 AM 9:10 CHIEF PAYROLL CLERK AM CHIEF PAYROLL CLERK Impressions MUSE - 11/07/2021 9:10 AM CHIEF PAYROLL CLERK Marked sinus bradycardia with 1st degree A-V [...] documented as of this encounter Care Teams Groover Operator Relationship Specialty Start Date End Date Shayla Alford D.O. PCP - General Internal Medicine 05/22/20 [address] [place] [address] documented as of this encounter
--- OUTSIDE RECORDS SUMMARY | 2022-05-28 07:06 | XMS_ITS | Encounter Summary ---
:1945 Author Organization [facility] Address [address] [place] [address] Care Team Providers Name Role Phone Shayla Alford D.O. 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 [facility] Procedures Cystoscopy (specific provider) [address] [place] [address] Referral ID Status Reason Start Date Expiration Date Visits V isits Requested Authorized [id number] Authorized 11/19/2021 11/19/2022 1 1 ING JUDGE Reason for Visit Reason Comments Post-op Bladder Cancer Outpatient (Routine) - Closed Specialty Diagnoses / Procedures Referred By Contact Refer red To Contact Urology Prasanna Bernal M.D. [facility] Region [address] [place] [address] Referral ID Status Reason Start Date Expiration Date Visits Requ ested Visits Authorized [id number] Closed 10/25/2021 10/25/2022 1 1 Encounter Details Date Type Department Care Team Description 11/19/2021 Office Visit Department of Urology Prasanna Bernal Mal ignant Neoplasm Of in Moise Patel M.D. Bladder Posterior Wall [address] ([facility]) (Primary Dx) KOBI PATEL [place] [...] completed or the highest Martin, MEd, COMPUTER SECURITY SPECIALIST, CAYDEN) degree you have received? Sex Assigned at Date Recorded Male 05/21/2018 2:34 PM CDT documented as of this encounter Last Filed Vital Signs Vital Sign Reading Time Taken Comments Blood Pressure - - Pulse 57 11/19/2021 8:04 AM PLACING JUDGE Temperature - - Respiratory Rate - - Oxygen Saturation 98% 11/19/2021 8:04 AM PLACING JUDGE room ai r Inhaled Oxygen Concentration - [...] time. Prasanna Bernal M.D. 11/19/21 8:45 AM PLACING JUDGE Answers for HPI/ROS submitted by the patient on 10/09/2021 No general issues: Yes No eye issues: Yes No ENT issues: Yes No heart issues: Yes No respiratory issues: Yes Diarrhea: Yes No muscle/bone issues: Yes No skin issues: Yes Loss of balance or tendency to fall easily: Yes No mental health issues: Yes Bruises/bleeds easily: Yes Frequent urination: Yes Incontinence (urine leakage): Yes ING JUDGE documented in this encounter Plan of Treatment Scheduled Orders Name Type Priority Associated Diagnoses Order S chedule Cytology Non-INSOLE COVERER Pathology and Routine Malignant Neoplasm Expe cted: (Scheduled) Cytology Of Bladder Posterior 022 Wall (HCC) (Approximate), Expires: 11/19/2022 documented as of this encounter Visit Diagnoses Diagnosis 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 PCP - General Internal Medicine 05/22/[address] [place] [address] documented as of this encounter
--- OUTSIDE RECORDS SUMMARY | 2022-05-28 07:06 | XMS_ITS | Encounter Summary ---
:1945 Author Organization [facility] Address [address] [place] [address] Care Team Providers Name Role Phone Shayla Alford D.O. Primary Care Provider [phone] Encounter Details Date Type Department Care Team Description 11/30/2021 Clinical Communication Department of Internal Andrei Dejesus Medicine in [place], [place], [place].O Mauro [place] [address] [place] [phone] Social History Tobacco Use Types Packs/Day Years [...] do you attend islam or Never 2021 denominational services? Do you [...] completed or the highest Martin, MEd, OPTICAL DISPENSER, CAYDEN) degree you have received? Sex Assigned at Date Recorded Male 05/21/2018 2:34 PM CDT documented as of this encounter Miscellaneous Notes Telephone Encounter - Yari Lee, C.M.A. - 11/30/2021 1:57 PM DINING ROOM MANAGER Information Discussed Informed patient of providers message. [...] following references were used: provider Dr. Reid NG ROOM MANAGER Telephone Encounter - Franklin-Shayla Dejesus D.O. - 11/30/2021 12:59 PM DINING ROOM MANAGER Thank you for the information . This [...] by: Shayla Alford D.O. 11/30/21 1:01 PM DINING ROOM MANAGER NG ROOM MANAGER Telephone Encounter - Arlyn Batista R.N. - 11/30/2021 12:13 PM CST Patient reporting that he has tested positive COVID at [place] today. Was going for dental appointment and test prior to colonoscopy. Both were cancelled and needed to be rescheduled. Patient states he alsohad questions regarding colonoscopy prep but will wait until appointment with Dr. Reid on January 02 at appointment. Patient will call back if he has questions prior to then. NG ROOM MANAGER documented in this encounter Plan of Treatment Not on filedocumented as of this encounter Visit Diagnoses Not on filedocumented in this encounter Additional Health Concerns Infection Onset Date Last Indicated Resolved Time COVID19 Pending 11/29/2021 11/29/2021 12/19/2021 5:54 AM CDT Assessment Noted Time PHQ-9 Depression Total Score: 18 04/28/2018 11:27 AM C DT documented as of this encounter Care Teams Project Planner Relationship Specialty Start Date End Date Shayla Alford D.O. PCP - General Internal Medicine 05/22/[address] [phone] documented as of this encounter
--- OUTSIDE RECORDS SUMMARY | 2022-05-28 07:06 | XMS_ITS | Encounter Summary ---
:1945 Author Organization [facility] Address [address] [place] [address] Care Team Providers Name Role Phone Shayla Alford D.O. Primary Care Provider [phone] Encounter Details Date Type Department Care Team Description 11/11/2021 Lab Department of [facility]nell [facility] [address] ([facility]) [place], [place] [address] [facility] [address] [place] [address] [phone] Social History Tobacco Use Types Packs/Day Years [...] have completed or the highest Martin, MEd, WEIGHTS AND MEASURES INSPECTOR, CAYDEN) degree you have received? Sex Assigned at Date Recorded Male 05/21/2018 2:34 PM CDT documented as of this encounter Plan of Treatment Not on filedocumented as of this encounter Procedures Procedure Name Priority Date/Time Associated Diagnosis Comme nts SARS CORONAVIRUS-2 Routine 11/11/2021 8:06 AM Malignant Neopla sm Results for this RNA, V REBEAMER Of Bladder Posterior procedu re are in Wall (HCC) the results section. documented in this encounter Results SARS Coronavirus-2 RNA, V Asymptomatic (11/11/2021 8:06 AM REBEAMER) [facility] Method Time Signature SARS-CoV-2 Swab, 11/11/2021 [facility] Specimen Nasopharynx 11:29 PM Source REBEAMER SARS CoV-2 Undetected Undetected 11/11/2021 [facility] RNA, TMA 11:29 PM REBEAMER Comment: SARS-CoV-2 RNA absent. This result does not rule out COVID-19 in the patient, as the sensitivity of the test depends o n the timing of the specimen collection and the quality of the specim en. Result should be correlated with patient's history and clinical presentat ion. ----ADDITIONAL INFORMATION---- This molecular amplification test was pe rformed using the Aptima SARS-CoV-2 assay ([employer] on the Sur[employer] Sys tem under emergency use authorization (EUA) by the U.S. Food and Drug Administ ration. Fact sheets for this EUA assay can be fo und at the following links: For Healthcare Providers: https://www.fd a.gov/media/495936/download For Patients: https://www.fda.gov/media/ 103191/download Specimen Anatomical Collection Method Collection Time Receive d Time (Source) Location / / Volume Laterality Varies 11/11/2021 8:06 AM 4:32 (Nasopharynx) REBEAMER PM REBEAMER Prasanna Bernal M.D. 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 PCP - General Internal Medicine 05/22/[address] [phone] documented as of this encounter
--- OUTSIDE RECORDS SUMMARY | 2022-05-28 07:06 | XMS_ITS | Encounter Summary ---
:1945 Author Organization [facility] Address [address] [place] [address] Care Team Providers Name Role Phone Shayla Alford D.O. Primary Care Provider Reason for Referral Medication Prior Authorization - Closed Specialty Diagnoses / Procedures Referred By Contact Refer red To Contact Jeison Alford D.O. [address] [place] [phone] Referral ID Status Reason Start Date Expiration Date Visits Requ ested Visits Authorized [id number] Closed 1 1 LET OR NEWSPAPER DELIVERER Encounter Details Date Type Department Care Team Description 11/19/2021 Clinical Communication Department of Internal Andrei Dejesus Medicine in [place] rub[place] D.O . [place] [address] [phone] Social History Tobacco Use Types Packs/Day Years [...] do you attend yarsani or Never 2021 anabaptism services? Do you belong to any clubs or No 10/09/2021 organizations such as yarsani groups, unions, fraBoxbe or athletic groups, or school groups? How [...] completed or the highest Martin, MEd, PLASTIC PROCESS TECHNICIAN, CAYDEN) degree you have received? Sex Assigned at Date Recorded Male 05/21/2018 2:34 PM CDT documented as of this encounter Miscellaneous Notes Telephone Encounter - Yari Lee, C.M.A. - 11/22/2021 3:18 PM LEAFLET OR NEWSPAPER DELIVERER Information Discussed Informed patient that ozempic prescription [...] following references were used: provider Dr. Reid LET OR NEWSPAPER DELIVERER Telephone Encounter - Anjali Sam - 11/22/2021 3:02 PM CST Patient is calling again to reach a nurse, [phone] LET OR NEWSPAPER DELIVERER Telephone Encounter - Chiqui Parham - 11/22/2021 12:25 PM CST Patient called in, returning call to [facility] nurse. Unable to get a hold of a nurse. Please call patientback. LET OR NEWSPAPER DELIVERER Telephone Encounter - Yari Lee C.M.Malcolm - 11/20/2021 3:59 PM LEAFLET OR NEWSPAPER DELIVERER Prescription put on providers desk for signature. LET OR NEWSPAPER DELIVERER Telephone Encounter - Shayla Alford D.O. - 11/20/2021 1:53 PM LEAFLET OR NEWSPAPER DELIVERER DONE Electronically signed by: Shayla Alford D.O. 11/20/21 1:53 PM LEAFLET OR NEWSPAPER DELIVERER LET OR NEWSPAPER DELIVERER Addendum Note - Shayla Alford D.O. - 11/20/2021 1:52 PM LEAFLET OR NEWSPAPER DELIVERER Addended by: SHAYLA ALFORD on: 11/20/2021 01:52 PM Modules accepted: Orders LET OR NEWSPAPER DELIVERER Addendum Note - Jacquie Hamilton, L.P.NMauro - 11/20/2021 12:19 PM LEAFLET OR NEWSPAPER DELIVERER Addended by: JACQUIE HAMILTON on: 11/20/2021 12:19 PM Modules accepted: Orders LET OR NEWSPAPER DELIVERER Addendum Note - Jacquie Hamilton L.P.NMauro - 11/20/2021 12:13 PM LEAFLET OR NEWSPAPER DELIVERER Addended by: JACQUIE HAMILTON on: 11/20/2021 12:13 PM Modules accepted: Orders LET OR NEWSPAPER DELIVERER Addendum Note - Jacquie Hamilton L.P.N. - 11/20/2021 11:50 AM LEAFLET OR NEWSPAPER DELIVERER Addended by: JACQUIE HAMILTON on: 11/20/2021 11:50 AM Modules accepted: Orders LET OR NEWSPAPER DELIVERER Telephone Encounter - Jacquie Hamilton L.P.N. - 11/20/2021 11:43 AM LEAFLET OR NEWSPAPER DELIVERER Prescription for medication Ozempic pended as requested and outlined by Dr Reid for approval. Prescriptions to be faxed to patient's [facility] pharmacy to dispense LET OR NEWSPAPER DELIVERER Telephone Encounter - Jacquie Hamilton L.P.NMauro - 11/19/2021 8:55 AM LEAFLET OR NEWSPAPER DELIVERER SUBJECTIVE CHIEF COMPLAINT / REASON FOR CALL No chief complaint on file. Information Discussed Patient here at clinic with document he received from the [place] pharmacy requesting PCP approve and prescribe taper up for medication OZEMPIC. Document placed in pcp mailbox with pcp to write prescriptionthat is to be faxed to the [place] pharmacy and a copy mailed to patient for OZEMPIC PLAN Disposition/Recommendation: notified provider and awaiting recommendations Information/Education: patient/caller able to teach back Caller agreeable to plan of care: yes The following references were used: other per patient LET OR NEWSPAPER DELIVERER documented in this encounter Plan of Treatment Not on filedocumented as of this encounter Visit Diagnoses Not on filedocumented in this encounter Additional Health Concerns Assessment Noted Time PHQ-9 Depression Total Score: 18 04/28/2018 11:27 AM C DT documented as of this encounter Care Teams Facing Slitter Relationship Specialty Start Date End Date Shayla Alford D.O. PCP - General Internal Medicine 05/22/[address] [phone] documented as of this encounter
--- OUTSIDE RECORDS SUMMARY | 2022-05-28 07:06 | XMS_ITS | Encounter Summary ---
:1945 Author Organization [facility] Address [address] [place] [address] Care Team Providers Name Role Phone Shayla Alford D.O. Primary Care Provider Encounter Details Date Type Department Care Team Description 11/30/2021 Clinical Communication Department of Internal Andrei Dejesus Medicine in [place], [place], [place].O Mauro [place] [address] [place] [phone] Social History Tobacco Use Types Packs/Day Years [...] do you attend sikhism or Never 2021 evangelical services? Do you [...] have completed or the highest Martin, MEd, BROKER ASSISTANT, CAYDEN) degree you have received? Sex [...] to remove from [employer], patient removed from [place]. CTOR OF ACADEMIC documented in this encounter Plan of Treatment Not on filedocumented as of this encounter Visit Diagnoses Not on filedocumented in this encounter Additional Health Concerns Infection Onset Date Last Indicated Resolved Time COVID19 Pending 11/29/2021 11/29/2021 12/19/2021 5:54 AM CDT Assessment Noted Time PHQ-9 Depression Total Score: 18 04/28/2018 11:27 AM C DT documented as of this encounter Care Teams Trauma Surgeon Relationship Specialty Start Date End Date Shayla Alford D.O. PCP - General Internal Medicine 05/22/[address] [phone] documented as of this encounter
--- OUTSIDE RECORDS SUMMARY | 2022-05-28 07:06 | XMS_ITS | Encounter Summary ---
:1945 Author Organization [facility] Address [address] [place] [address] Care Team Providers Name Role Phone Shayla Alford D.O. Primary Care Provider [phone] Encounter Details Date Type Department Care Team Description 11/07/2021 Hospital Encounter Department of Cirilo Bernal Neoplasm Of Laboratory Medicine Pato Mims Bladder Posterior in [place], [address] ([facility] [address] [place] [phone] Social History Tobacco Use [...] completed or the highest Martin, MEd, CLINICAL ESTHETICIAN, CAYDEN) degree you have received? Sex Assigned [...] (FREESTYLE SOFYA) times a day. Use to [facility] scan Sofya sensor 5 times [...] PEN NEEDLE, DIABETIC Yani Fine 30 0 [employer] [facility] disposable needles. For use with Insulin Pens, 4 times daily SYRINGE-NEEDLE,INSULIN,0 0 .5 ML (INSULIN SYRINGE [employer] [employer]) torsemide (DEMADEX) 20 Take 1 tablet (20 [...] sm Results for this AEROBIC + SUSC, SHIPFITTER Of Bladder Posterior proc edure are in URINE Wall (HCC) the results section. documented in this encounter Results (ABNORMAL) Bacterial Culture, Aerobic + Susc, Urine (11/07/2021 8:30 AM SHIPFITTER) Analysis [facility] At [facility] Time Signature Urine Culture Mixed 11/08/2021 [facility] surekha. (A) 10:55 AM SHIPFITTER Specimen Anatomical Collection Method Collection Time Receive d Time (Source) Location / / Volume Laterality Urine (Urine, 11/07/2021 8:30 AM 11/07/19 22 2:14 Midstream) SHIPFITTER PM SHIPFITTER Comment: Specimen Source Site: Urine Mid stream Prasanna Bernal M.D. 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 PCP - General Internal Medicine 05/22/[address] [phone] documented as of this encounter
--- OUTSIDE RECORDS SUMMARY | 2022-05-28 07:06 | XMS_ITS | Encounter Summary ---
:1945 Author Organization [facility] Address [address] [place] [address] Care Team Providers Name Role Phone Shayla Alford D.O. Primary Care Provider [phone] Reason for Referral Outpatient (Routine) - Authorized Specialty Diagnoses / Procedures Referred By Contact Refer red To Contact Nephrology and Melissa Ferrer [place] [facility] M.B.B.S. [address] [place] [address] Referral ID Status Reason Start Date Expiration Date Visits V isits Requested Authorized [id number] Authorized 10/09/2021 10/09/2022 1 1 STANT PROFESSOR OF CHEMISTRY Reason for Visit Reason Comments Malignant Neoplasm of Bladder Posterior Wall Hyperplasia Prostate Benign Localized with Obstruction Chronic Kidney Disease Diabetes Mellitus Type 2 Outpatient (Routine) - Closed Specialty Diagnoses / Procedures Referred By Contact Refer red To Contact Nephbenito and Melissa Ferrer [place] [facility] M.B.B.S. [address] [place] [address] Referral ID Status Reason Start Date Expiration Date Visits Requ ested Visits Authorized [id number] Closed 05/16/2021 05/16/2022 1 1 Encounter Details Date Type Department Care Team Description 10/09/2021 Office Visit Division of Nephrology Nabil, Chron ic Kidney Disease (CKD), Stage 3b Glomerular Filtration Rate (GFR) 30 To 44 (HCC) (Primary Dx); and Hypertension in Melissa, Hyperten nubia Essential Primary [place], [place] M.B.B.S. 200 [facility] 200 [place] [phone] Social History Tobacco Use Types Packs/Day Years [...] do you attend religious or Never 2021 hinduism services? Do you [...] have completed or the highest Martin, MEd, GARAGE WORKER, CAYDEN) degree you have received? Sex Assigned at Date Recorded Male 05/21/2018 2:34 PM CDT documented as of this encounter Last Filed Vital Signs Vital Sign Reading Time Taken Comments Blood Pressure 128/64 10/09/2021 4:15 PM ASSISTANT PROFESSOR OF CHEMISTRY Pulse 57 10/09/2021 4:15 PM ASSISTANT PROFESSOR OF CHEMISTRY Temperature 37.3 ??C (99.1 ??F) 10/09/2021 3:28 PM ASSISTANT PROFESSOR OF CHEMISTRY Respiratory Rate - - Oxygen Saturation - - Inhaled Oxygen Concentration - - Weight 97.3 kg (214 lb 8.1 oz) 10/09/2021 3:28 PM ASSISTANT PROFESSOR OF CHEMISTRY Height 184.9 cm (6' 0.8) 10/09/2021 3:28 PM ASSISTANT PROFESSOR OF CHEMISTRY Body Mass Index 28.46 10/09/2021 3:28 PM ASSISTANT PROFESSOR OF CHEMISTRY documented in this encounter Progress Notes Melissa [...] with me in 4 months Jose MoranB.S. STANT PROFESSOR OF CHEMISTRY documented in this encounter Plan of Treatment [...] documented as of this encounter Care Teams Comb Machine Operator Relationship Specialty Start Date End Date Shayla Alford D.O. PCP - General Internal Medicine 05/22/[address] [place] [phone] documented as of this encounter
--- OUTSIDE RECORDS SUMMARY | 2022-05-28 07:06 | XMS_ITS | Encounter Summary ---
:1945 Author Organization [facility] Address [address] [place] [address] Care Team Providers Name Role Phone Shayla Alford D.O. Primary Care Provider [phone] Encounter Details Date Type Department Care Team Description 12/24/2021 Clinical Communication Department of Internal Andrei Dejesus Medicine in [place], [place], [place].O Mauro [place] [address] [place] [phone] Social History Tobacco Use Types Packs/Day Years [...] do you attend synagogue or Never 2021 anglican services? Do you [...] have completed or the highest Martin, MEd, RESORT DESK CLERK, CAYDEN) degree you have received? Sex [...] as plan patient will be discharged from [facility] later this afternoon. I informed her that any medication changes or adjustments can be addressed at [facility] appointment on 12/27 and the hospital team will prescribe any medications that may be necessary prior to that appointment. I discussed with Diallo that she can discussneurology follow up at [facility] appointment as well. I did offer [...] reported pt is currently in hospital in [place]. Said pt had video consult with 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 reports pt feeling fine now and will discharge today. Pt's is wondering about a potential increase or change in meds to prevent this from happening again. She said she is also wondering if pt should have consult with [facility] neurologist as well. Pt's would like a call today (12/25), so she can pass on any information from PCP to [facility]. Post hospital FU scheduled with PCP on [...] documented as of this encounter Care Teams Nail Puller Relationship Specialty Start Date End Date Shayla Alford D.O. PCP - General Internal Medicine 05/22/20 [address] [place] [phone] documented as of this encounter
--- OUTSIDE RECORDS SUMMARY | 2022-05-28 07:06 | XMS_ITS | Encounter Summary ---
:1945 Author Organization [facility] Address [address] [place] [address] Care Team Providers Name Role Phone Shayla Alford D.O. Primary Care Provider [phone] Reason for Visit Appointment Request (Routine) - Closed Specialty Diagnoses / Procedures Referred By Contact Refer red To Contact Community Internal Medicine Referral ID Status Reason Start Date Expiration Date Visits Requ ested Visits Authorized [id number] Closed 12/26/2021 12/26/2022 1 1 Encounter Details Date Type Department Care Team Description 12/26/2021 Virtual Visit Department of Internal [place]ío, Stroke (HCC) (Primary Medicine in Shayla Dixon D.O . Dx) [place] [address] [place] [phone] Social History Tobacco Use Types Packs/Day [...] do you attend muslim or Never 2021 evangelical services? Do you belong to any clubs or No 10/09/2021 organizations such as muslim groups, unions, fraErecruit or athletic groups, or school groups? How [...] have completed or the highest Martin, MEd, FLOOR COVERER, CAYDEN) degree you have received? Sex Assigned at Date Recorded Male 05/21/2018 2:34 PM CDT documented as of this encounter Progress Notes Shayla Alford D.O. - 12/26/2021 2:00 PM CDT Patient has sustained a stroke and is in [facility] undergoing treatment. I did [...] documented as of this encounter Care Teams Telemarketer Relationship Specialty Start Date End Date Shayla Alford D.O. PCP - General Internal Medicine 05/22/[address] [phone] documented as of this encounter
--- OUTSIDE RECORDS SUMMARY | 2022-05-28 07:06 | XMS_ITS | Encounter Summary ---
:1945 Author Organization [facility] Address [address] [place] [address] Care Team Providers Name Role Phone Shayla Alford D.O. Primary Care Provider [phone] Encounter Details Date Type Department Care Team Description 10/18/2021 Hospital Encounter Department of Prateek Bernal Primary; Laboratory Medicine Pato Mims Chronic Kidney Disease (CKD), Stage 3b G lomerular Filtration Rate (GFR) 30 To 44 (HCC); in [address] Malignant Neop lasm Of Bladder Lateral Wall (HCC) [address] [place] [phone] Social History Tobacco Use Types Packs/Day Years [...] do you attend scientologist or Never 2021 rastafarian services? Do you [...] completed or the highest Martin, MEd, MARKETING TECHNOLOGY COORDINATOR, CAYDEN) degree you have received? [...] (FREESTYLE SOFYA) times a day. Use to [facility] scan Sofya sensor 5 [...] PEN NEEDLE, DIABETIC Yani Fine 30 0 [facility] disposable needles. For use with Insulin Pens, 4 times daily SYRINGE-NEEDLE,INSULIN,0 0 .5 ML (INSULIN SYRINGE [facility]) torsemide (DEMADEX) 20 Take 1 tablet [...] Priority Date/Time Associated Diagnosis Comme nts CYTOLOGY NON-FULLING MACHINE OPERATOR Routine 10/18/2021 10:20 Malignant Neoplasm O f Results for this (SCHEDULED) AM RETAIL GIFT CARD MERCHANDISING Bladder Lateral Wall procedu re are in ([facility]) the results section. UROVYSION (R) FOR Routine 10/18/2021 10:20 Malignant Neoplasm Of Results for this BLADDER CANCER AM RETAIL GIFT CARD MERCHANDISING Bladder Lateral Wall proce dure are in ([facility]) the results section. ALBUMIN, RANDOM, U Routine 10/18/2021 10:20 Hypertension Resul ts for this AM RETAIL GIFT CARD MERCHANDISING Essential Primar y procedure are in Chronic Kidney the results Disease (CKD), Stage section . 3b Glomerular Filtration Rate (GFR) 30 To 44 ([facility]) URINALYSIS WITH Routine 10/18/2021 10:20 Hypertension Results for this MICROSCOPIC AM RETAIL GIFT CARD MERCHANDISING Essential Primar y procedure are in Chronic Kidney the results Disease (CKD), Stage section . 3b Glomerular Filtration Rate (GFR) 30 To 44 ([facility]) documented in this encounter Results UroVysion for Detection of Bladder Cancer, Urine (10/18/2021 10:20 AM RETAIL GIFT CARD MERCHANDISING) Component Value Ref Test Analysis Performed Pathologis t Range Method Time At [facility] Result Summary Negative 11/05/2021 DTL 5:07 PM RETAIL GIFT CARD MERCHANDISING Karyotype No evidence of 11/05/2021 DTL urothelial 5:07 PM RETAIL GIFT CARD MERCHANDISING carcinoma. Reason for Evaluate for 11/05/2021 DTL referral urothelial 5:07 PM RETAIL GIFT CARD MERCHANDISING carcinoma. Specimen Varies 11/05/2021 DTL 5:07 PM RETAIL GIFT CARD MERCHANDISING Source Voided 11/05/2021 DTL 5:07 PM RETAIL GIFT CARD MERCHANDISING Released By Dhiraj Porras, 11/05/2021 DTL M.D. 5:07 PM RETAIL GIFT CARD MERCHANDISING Interpretation This test result does not rule out the possibility t hat the 11/05/2021 DTL patient may have a low-grade (i.e. grade 1 or 2) 5:07 PM RETAIL GIFT CARD MERCHANDISING non-invasive papillary urothelial carcinoma. Some patients with low grade non-invasive papillary urothelial carcinoma do not have abnormalities with this FISH test. Comment: ----ADDITIONAL INFORMATION---- Fluorescence in situ hybridization (FISH ) with centromere probes for chromosomes 3 (D3Z1), 7(D7Z1), 17(D17Z1) , and a locus specific probe for 9p21 ([employer] [place], [place]) . This test has been modified from the man markor's instructions. Its performance characteristics were determi darnell by [facility] in a manner consistent with CLIA requirements. This test has not been cleared or approved by the U.S. Food and Drug Administration . Specimen Anatomical Collection Method Collection Time Receive d Time (Source) Location / / Volume Laterality Varies (Urine, 10/18/2021 10:20 2 Voided) AM RETAIL GIFT CARD MERCHANDISING 11:31 AM RETAIL GIFT CARD MERCHANDISING Narrative This result has an attachment that is no t available. Prasanna Bernal M.D. LAB GENETIC TESTING Performing Organization Address City/State/ZIP Code Phon e Number [facility] - [address] [place], [place] [address] [facility] [place] [address] Laboratories-[facility] [address] Cytology Non-FULLING MACHINE OPERATOR (Scheduled) (10/18/2021 10:20 AM RETAIL GIFT CARD MERCHANDISING) Component Value Ref Test Analysis Performed At [facility] gist Range Method Time Signature 10/19/2021 [facility] 9:33 AM RETAIL GIFT CARD MERCHANDISING Fixative 50% alcohol 10/19/2021 [facility] 9:33 AM RETAIL GIFT CARD MERCHANDISING Report Brady Goodrich MD 10/19/2021 [facility] electronically 9:33 AM RETAIL GIFT CARD MERCHANDISING signed by I verify that I have examined all relevant slides/materials for the specimen(s) and rendered or confirmed the diagnosis. Gross Description Received 50 10/19/2021 [facility] ml of yellow 9:33 AM RETAIL GIFT CARD MERCHANDISING alcohol fixed fluid. Collection clean void 10/19/2021 [facility] Procedure 9:33 AM RETAIL GIFT CARD MERCHANDISING Source A. Urine, 10/19/2021 [facility] Clean Catch, 9:33 AM RETAIL GIFT CARD MERCHANDISING voided Clinical History unknown 10/19/2021 [facility] 9:33 AM RETAIL GIFT CARD MERCHANDISING Interpretation A. Urine, Clean Catch, voided (cytospin): Negative f or 10/19/2021 [facility] High-Grade Urothelial Carcinoma. 9:33 AM RETAIL GIFT CARD MERCHANDISING Specimen Anatomical Collection Method Collection Time Receive d Time (Source) Location / / Volume Laterality Varies (Urine, 10/18/2021 10:20 2:04 Clean Catch) AM RETAIL GIFT CARD MERCHANDISING PM RETAIL GIFT CARD MERCHANDISING Narrative This result has an attachment that is no t available. Prasanna Bernal M.D. LAB SURG PATH ORDERABLES Performing Organization Address City/State/ZIP Code Phon e Number [facility]- [address] [place] [address] Cyt[address] [place] [address] (ABNORMAL) Albumin, Random, Urine (10/18/2021 10:20 AM RETAIL GIFT CARD MERCHANDISING) [facility] gist Method Time Signature Microalbumin 66.0 mg/L 10/18/2021 OWAT 1:14 PM RETAIL GIFT CARD MERCHANDISING Creatinine 26 mg/dL 10/18/2021 OWAT 1:14 PM RETAIL GIFT CARD MERCHANDISING Albumin/Creatinin 254 (H) <17 mg/g 10/18/2021 OWAT e Ratio 1:14 PM RETAIL GIFT CARD MERCHANDISING Specimen Anatomical Collection Method Collection Time Receive d Time (Source) Location / / Volume Laterality Urine (Urine, 10/18/2021 10:20 10/18/2021 Clean Catch) AM RETAIL GIFT CARD MERCHANDISING 12:44 PM RETAIL GIFT CARD MERCHANDISING Melissa Blackmon LAB URINE ORDERABLES Performing Organization Address City/State/ZIP Code Phon e Number [facility]- [address] [place] [address] [facility] [place] [facility] [place] [address] System in [place] [address] [facility] (ABNORMAL) Urinalysis with Microscopic: Urine, Midstream (10/18/2021 10:20 AM RETAIL GIFT CARD MERCHANDISING) Analysis Performed At Patho logist Time Signature Source Urine, Urine, 10/18/2021 FB60 Midstream 10:31 AM RETAIL GIFT CARD MERCHANDISING Clarity Clear Clear 10/18/2021 FB60 11:03 AM RETAIL GIFT CARD MERCHANDISING Color Yellow 10/18/2021 FB60 11:03 AM RETAIL GIFT CARD MERCHANDISING Comment: ----REFERENCE VALUE---- Colorless Yellow Mitra Blood Negative Negative 10/18/2021 11:03 AM RETAIL GIFT CARD MERCHANDISING FB60 Nitrite Negative Negative 10/18/2021 11:03 AM RETAIL GIFT CARD MERCHANDISING FB60 Leukocyte Esterase Negative Negative 10/18/2021 11:[address] FB60 Protein Negative mg/dL 10/18/2021 11:03 AM RETAIL GIFT CARD MERCHANDISING FB60 Comment: ----REFERENCE VALUE---- Negative Trace Glucose >=1000 (A) Negative mg/dL 10/18/2021 11:03 AM RETAIL GIFT CARD MERCHANDISING FB60 Ketones, QI(U) Negative Negative mg/dL 10/18/2021 11:03 AM RETAIL GIFT CARD MERCHANDISING FB60 Bilirubin Negative Negative 10/18/2021 11:03 AM RETAIL GIFT CARD MERCHANDISING FB60 pH 5.5 5.0 - 8.0 10/18/2021 11:03 AM RETAIL GIFT CARD MERCHANDISING FB60 Specific [place] 1.010 1.001 - 1.035 10/18/2021 11:03 AM RETAIL GIFT CARD MERCHANDISING FB60 Urobilinogen 0.2 0.2 - 1.0 mg/dL 10/18/2021 11:[address] FB60 White Blood Cells Occ-3 /hpf 10/18/2021 11:04 AM CS T FB60 Comment: ----REFERENCE VALUE---- Males: 0-3 Females: 0-10 Unknown: 0-10 Red Blood Cells None Seen 0 - 2 /hpf 10/18/2021 11:04 AM RETAIL GIFT CARD MERCHANDISING FB60 Specimen Anatomical Collection Method Collection Time Receive d Time (Source) Location / / Volume Laterality Urine (Urine, 10/18/2021 10:20 10/18/2021 Midstream) AM RETAIL GIFT CARD MERCHANDISING 10:31 AM RETAIL GIFT CARD MERCHANDISING Melissa Blackmon LAB URINE ORDERABLES Performing Organization Address City/State/ZIP Code Phon e Number [facility]- [address] [place] [address] [facility] [address] [place] [address] System in [place] [address] documented in this encounter Visit Diagnoses Diagnosis Hypertension Essential Primary Chronic Kidney Disease (CKD), Stage 3b G lomerular Filtration Rate (GFR) 30 To 44 (HCC) 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 (HCC) documented in this encounter Additional Health Concerns Assessment Noted Time PHQ-9 Depression Total Score: 18 04/28/2018 11:27 AM C DT documented as of this encounter Care Teams Ear Mold Laboratory Technician Relationship Specialty Start Date End Date Shayla Alford D.O. PCP - General Internal Medicine 05/22/[address] [place] [phone] documented as of this encounter
--- OUTSIDE RECORDS SUMMARY | 2022-05-28 07:06 | XMS_ITS | Encounter Summary ---
:1945 Author Organization [facility] Address [address] [place] [address] Care Team Providers Name Role Phone Shayla Alford D.O. Primary Care Provider [phone] Encounter Details Date Type Department Care Team Description 11/07/2021 Orders Only Department of Internal [place] Medicine in [place], [place], [place].Jason Wade [place] [address] [place] [phone] (Wo rk) Social History Tobacco Use Types [...] do you attend tenriism or Never 2021 sikh services? Do you [...] completed or the highest Martin, MEd, OIL OPERATOR, CAYDEN) degree you have received? Sex Assigned at Date Recorded Male 05/21/2018 2:34 PM CDT documented as of this encounter Plan of Treatment Not on filedocumented as of this encounter Visit Diagnoses Not on filedocumented in this encounter Additional Health Concerns Assessment Noted Time PHQ-9 Depression Total Score: 18 04/28/2018 11:27 AM C DT documented as of this encounter Care Teams Director Public Relationship Specialty Start Date End Date Shayla Alford D.O. PCP - General Internal Medicine 05/22/[address] [phone] documented as of this encounter
--- OUTSIDE RECORDS SUMMARY | 2022-05-28 07:06 | XMS_ITS | Encounter Summary ---
:1945 Author Organization [facility] Address [address] [place] [address] Care Team Providers Name Role Phone Shayla Alford D.O. Primary Care Provider [phone] Reason for Referral Outpatient (Routine) - Closed Specialty Diagnoses / Procedures Referred By Contact Refer red To Contact Urology Prasanna Bernal M.D. 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 [facility] [address] [place] [phone] Referral ID Status Reason Start Date Expiration Date Visits Requ ested Visits Authorized [id number] Closed 10/25/2021 10/25/2022 1 1 NESS ANALYST MANAGER Reason for Visit Reason Comments Cystoscopy Post bcg Outpatient (Routine) - Closed Specialty Diagnoses / Procedures Referred By Contact Refer red To Contact Diagnoses Malignant Neoplasm Of Bladder Lateral Wall (HCC) Prasanna Bernal M.D. [facility] Region Procedures Cystoscopy (specific provider) [address] [place] [phone] Referral ID Status Reason Start Date Expiration Date Visits Requ ested Visits Authorized [id number] Closed 07/23/2021 07/23/2022 1 1 Encounter Details Date Type Department Care Team Description 10/25/2021 Office Visit Department of Urology Prasanna Bernal Mal ignant Neoplasm Of in Moise Dixon M.D. Bladder Posterior Wall [address] (HCC) [place] [phone] Social History Tobacco Use Types Packs/Day Years [...] do you attend pentecostal or Never 2021 tenriism services? Do you [...] completed or the highest Martin, MEd, CERTIFIED FRAUD EXAMINER, CAYDEN) degree you have received? Sex Assigned at Date Recorded Male 05/21/2018 2:34 PM CDT documented as of this encounter Last Filed Vital Signs Vital Sign Reading Time Taken Comments Blood Pressure - - Pulse 53 10/25/2021 2:34 PM BUSINESS ANALYST MANAGER Temperature 35.9 ??C (96.6 ??F) 10/25/2021 2:34 PM BUSINESS ANALYST MANAGER Respiratory Rate - - Oxygen Saturation 98% 10/25/2021 2:34 PM BUSINESS ANALYST MANAGER Inhaled Oxygen Concentration - - Weight - [...] by: Prasanna Bernal M.D. 10/25/21 4:02 PM BUSINESS ANALYST MANAGER Answers for HPI/ROS submitted by the patient on 10/09/2021 No general issues: Yes No eye issues: Yes No ENT issues: Yes No heart issues: Yes No respiratory issues: Yes Diarrhea: Yes No muscle/bone issues: Yes No skin issues: Yes Loss of balance or tendency to fall easily: Yes No mental health issues: Yes Bruises/bleeds easily: Yes Frequent urination: Yes Incontinence (urine leakage): Yes NESS ANALYST MANAGER documented in this encounter Plan of Treatment Scheduled Referrals Name Type Priority Associated Diagnoses [facility] Outpatient Referral Routine Malignant Neopl asm Expected: consult (clinic) Of Bladder Posterior Wall (HCC) (Approximate), Expires: 01/23/2023 Urology office Outpatient Referral Routine Expect ed: visit (clinic) 11/19/2021 (Approximate), Expires: 01/23/2023 documented as of this encounter Results SARS Coronavirus-2 RNA, V Asymptomatic (11/11/2021 8:06 AM BUSINESS ANALYST MANAGER) [facility] Method Time Signature SARS-CoV-2 Swab, 11/11/2021 MKTO Specimen Nasopharynx 11:29 PM Source BUSINESS ANALYST MANAGER SARS CoV-2 Undetected Undetected 11/11/2021 MKTO RNA, TMA 11:29 PM BUSINESS ANALYST MANAGER Comment: SARS-CoV-2 RNA absent. This result does not rule out COVID-19 in the patient, as the sensitivity of the test depends o n the timing of the specimen collection and the quality of the specim en. Result should be correlated with patient's history and clinical presentat ion. ----ADDITIONAL INFORMATION---- This molecular amplification test was pe rformed using the Aptima SARS-CoV-2 assay ([employer] on the Knottykarts tem under emergency use authorization (EUA) by the U.S. Food and Drug Administ ration. Fact sheets for this EUA assay can be fo und at the following links: For Healthcare Providers: https://www.[employer]DressSpot.com a.gov/media/735393/download For Patients: https://www.fda.gov/media/ 026133/download Specimen Anatomical Collection Method Collection Time Receive d Time (Source) Location / / Volume Laterality Varies 11/11/2021 8:06 AM 2 4:32 (Nasopharynx) BUSINESS ANALYST MANAGER PM BUSINESS ANALYST MANAGER Prasanna Bernal M.D. LAB MICROBIOLOGY - GENERAL Jason PORTER Performing Organization Address City/[facility] Phon e Number [address] [address] [place] [address] System [address] (ABNORMAL) Bacterial Culture, Aerobic + Susc, Urine (11/07/2021 8:30 AM BUSINESS ANALYST MANAGER) Analysis Performed At [facility] Time Signature Urine Culture Mixed 11/08/2021 [facility] surekha. (A) 10:55 AM BUSINESS ANALYST MANAGER Specimen Anatomical Collection Method Collection Time Receive d Time (Source) Location / / Volume Laterality Urine (Urine, 11/07/2021 8:30 AM 11/07/19 22 2:14 Midstream) BUSINESS ANALYST MANAGER PM BUSINESS ANALYST MANAGER Comment: Specimen Source Site: Urine Mid stream Prasanna Bernal M.D. 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 PCP - General Internal Medicine 05/[address] [place] [phone] documented as of this encounter
--- OUTSIDE RECORDS SUMMARY | 2022-05-28 07:06 | XMS_ITS | Encounter Summary ---
:1945 Author Organization [facility] Address [address] [place] [address] Care Team Providers Name Role Phone Shayla Alford D.O. Primary Care Provider [phone] Reason for Visit Reason Comments Lesion Outpatient (Routine) - Closed Specialty Diagnoses / Procedures Referred By Contact Refer red To Contact Dermatology Diagnoses Lesion Skin Shayla Alford D.O. [facility] Region [address] [place] [phone] Referral ID Status Reason Start Date Expiration Date Visits V isits Requested Authorized [id number] Closed Specialty 09/13/2021 09/13/2022 1 1 Services Required Encounter Details Date Type Department Care Team Description 11/19/2021 Comprehensive Visit Department of Jose Enrique, Phyllis, Hyperpl alberto Dermatology in [facility] Sebaceous [place], [place] M.S.N. [address] [facility] [address] [place], [place] [phone] [address] Social History Tobacco Use Types Packs/Day [...] do you attend uatsdin or Never 2021 alevism services? Do you belong to any clubs or No 10/09/2021 organizations such as uatsdin groups, unions, fraHouseFix or athletic groups, or school groups? How [...] completed or the highest Martin, MEd, ENVIRONMENTAL SERVICES COORDINATOR, CAYDEN) degree you have received? [...] and edited as needed by the provider. E FERRY OPERATOR documented in this encounter Plan of Treatment Not on filedocumented as of this encounter Visit Diagnoses Diagnosis Hyperplasia Sebaceous documented in this encounter Additional Health Concerns Assessment Noted Time PHQ-9 Depression Total Score: 18 04/28/2018 11:27 AM C DT documented as of this encounter Care Teams Grassland Conservationist Relationship Specialty Start Date End Date Shayla Alford D.O. PCP - General Internal Medicine 05/22/[address] [phone] documented as of this encounter
--- OUTSIDE RECORDS SUMMARY | 2022-05-28 07:06 | XMS_ITS | Encounter Summary ---
:1945 Author Organization [facility] Address [address] [place] [address] Care Team Providers Name Role Phone Shayla Alford D.O. Primary Care Provider [phone] Encounter Details Date Type Department Care Team [...] have completed or the highest Martin, MEd, COMMUTATOR INSPECTOR, CAYDEN) degree you have received? Sex Assigned at Date Recorded Male 05/21/2018 2:34 PM CDT documented as of this encounter Plan of Treatment Not on filedocumented as of this encounter Procedures Procedure Name Priority Date/Time Associated Diagnosis Comme nts UROLOGY IMAGE EXAM Routine 10/25/2021 3:05 PM Res ults for this ASSISTANT BASKETBALL COACH procedure are i n the results section. documented in this encounter Results BLADDER-Urology Image Exam (10/25/2021 3:05 PM ASSISTANT BASKETBALL COACH) Specimen (Source) Anatomical Collection Method Collection Time Re ceived Time Location / / Volume Laterality 10/25/2021 3:03 PM ASSISTANT BASKETBALL COACH Narrative IIMS - 10/25/2021 3:08 PM ASSISTANT BASKETBALL COACH This order has been created and auto-finalized [...] documented as of this encounter Care Teams Quartz Mounter Relationship Specialty Start Date End Date Shayla Alford D.O. PCP - General Internal Medicine 05/22/20 [address], [place] [address] documented as of this encounter
--- OUTSIDE RECORDS SUMMARY | 2022-05-28 07:07 | XMS_ITS | Encounter Summary ---
:1945 Author Organization [facility] Address [address] [place] [address] Care Team Providers Name Role Phone Shayla Alford D.O. Primary Care Provider [phone] Encounter Details Date Type Department Care Team Description 09/17/2021 Hospital Encounter Department of Cirilo Bernal Neoplasm Of Laboratory Medicine Pato Mims Bladder Lateral Wall in [place], [address] ([facility]) [address] [place] [phone] Social History Tobacco Use Types Packs/Day [...] do you attend religious or Never 2021 tenriism services? Do you [...] have completed or the highest Martin, MEd, GRAPPLE CREW LEADER, CAYDEN) degree you have received? Sex [...] PEN NEEDLE, DIABETIC Yani Fine 30 0 [place] disposable needles. For use with Insulin Pens, 4 times daily SYRINGE-NEEDLE,INSULIN,0 0 .5 ML (INSULIN SYRINGE [place]) traZODone (DESYREL) 100 Take 0.5 tablets (50 [...] Results for this AEROBIC + SUSC, URINE MARRIAGE AND FAMILY TEACHER Of Bladder Lateral procedure are in Wall ([facility]) the results section. URINALYSIS WITH Routine 09/17/2021 9:01 AM Malignant Neoplasm Results for this MICROSCOPIC MARRIAGE AND FAMILY TEACHER Of Bladder Lateral procedure are in Wall ([facility]) the results section. documented in this encounter Results (ABNORMAL) Bacterial Culture, Aerobic + Susc, Urine (09/17/2021 9:01 AM MARRIAGE AND FAMILY TEACHER) Analysis Performed At Patho logist Time Signature Urine Culture Mixed 09/18/2021 MKTO surekha. (A) 9:23 AM MARRIAGE AND FAMILY TEACHER Specimen Anatomical Collection Method Collection Time Receive d Time (Source) Location / / Volume Laterality Urine (Urine, 09/17/2021 9:01 AM 09/17/20 2:06 Midstream) MARRIAGE AND FAMILY TEACHER PM MARRIAGE AND FAMILY TEACHER Comment: Specimen Source Site: Urine Prasanna Bernal M.D. LAB MICROBIOLOGY - GENERAL O RDERABLES Performing Organization Address City/State/ZIP Code Phon e Number [facility]- [facility] [place] [address] [place] [address] System in [place] [address] [place] [address] (ABNORMAL) Urinalysis with Microscopic: Urine, Midstream (09/17/2021 9:01 AM MARRIAGE AND FAMILY TEACHER) Analysis Performed At Patho logist Time Signature Source Urine, Urine, 09/17/2021 FB60 Midstream 9:02 AM MARRIAGE AND FAMILY TEACHER Clarity Clear Clear 09/17/2021 FB60 9:10 AM MARRIAGE AND FAMILY TEACHER Color Yellow 09/17/2021 FB60 9:10 AM MARRIAGE AND FAMILY TEACHER Comment: ----REFERENCE VALUE---- Colorless Yellow Mitra Blood Moderate (A) Negative 09/17/2021 9:10 AM MARRIAGE AND FAMILY TEACHER FB60 Nitrite Negative Negative 09/17/2021 9:10 AM MARRIAGE AND FAMILY TEACHER FB60 Leukocyte Esterase Negative Negative 09/17/2021 9:10 AM CS T FB60 Protein 100 (A) mg/dL 09/17/2021 9:10 AM MARRIAGE AND FAMILY TEACHER FB60 Comment: ----REFERENCE VALUE---- Negative Trace Glucose >=1000 (A) Negative mg/dL 09/17/2021 9:10 AM MARRIAGE AND FAMILY TEACHER F B60 Ketones, QI(U) Negative Negative mg/dL 09/17/2021 9:[address] FB60 Bilirubin Negative Negative 09/17/2021 9:10 AM MARRIAGE AND FAMILY TEACHER FB60 pH 5.5 5.0 - 8.0 09/17/2021 9:10 AM MARRIAGE AND FAMILY TEACHER FB60 Specific [place] 1.015 1.001 - 1.035 09/17/2021 9:10 AM MARRIAGE AND FAMILY TEACHER FB60 Urobilinogen 0.2 0.2 - 1.0 mg/dL 09/17/2021 9:10 AM CS T FB60 White Blood Cells 4-10 (A) /hpf 09/17/2021 9:25 AM MARRIAGE AND FAMILY TEACHER FB60 Comment: ----REFERENCE VALUE---- Males: 0-3 Females: 0-10 Unknown: 0-10 Red Blood Cells 3-10 (A) 0 - 2 /hpf 09/17/2021 9:25 AM MARRIAGE AND FAMILY TEACHER FB60 Dysmorphic Red Blood Cells <=25 <=25 % 09/17/2021 9: 25 AM MARRIAGE AND FAMILY TEACHER FB60 Specimen Anatomical Collection Method Collection Time Receive d Time (Source) Location / / Volume Laterality Urine (Urine, 09/17/2021 9:01 AM 12/20/20 21 9:01 Midstream) MARRIAGE AND FAMILY TEACHER AM MARRIAGE AND FAMILY TEACHER Prasanna Bernal M.D. LAB URINE ORDERABLES Performing Organization Address City/State/ZIP Code Phon e Number [place] [address] [place] [address] [facility] FB60 [place] [address] System in [place] [address] documented in this encounter Visit Diagnoses Diagnosis 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 (HCC) documented in this encounter Additional Health Concerns Assessment Noted Time PHQ-9 Depression Total Score: 18 04/28/2018 11:27 AM C DT documented as of this encounter Care Teams Answering Service Telephone Operator Relationship Specialty Start Date End Date Shayla Alford D.O. PCP - General Internal Medicine 05/22/[address] [place] [phone] documented as of this encounter
--- OUTSIDE RECORDS SUMMARY | 2022-05-28 07:07 | XMS_ITS | Encounter Summary ---
:1945 Author Organization [facility] Address [address] [place] [address] Care Team Providers Name Role Phone Shayla Alford D.O. Primary Care Provider [phone] Reason for Visit Reason Comments Nurse Visit BCG Bladder Cancer Appointment Request (Routine) - Closed Specialty Diagnoses / Procedures Referred By Contact Refer red To Contact Urology Referral ID Status Reason Start Date Expiration Date Visits Requ ested Visits Authorized [id number] Closed 07/23/2021 07/23/2022 1 1 Encounter Details Date Type Department Care Team Description 08/22/2021 Nurse Only Department of Urology Lea Morin Nu rse Visit (BCG); in [place] R.N. Bladder Cancer [address] [place] [phone] [place], [place] [phone] Social History Tobacco Use Types Packs/Day Years [...] do you attend taoist or Never 2021 yazidi services? Do you [...] have completed or the highest Martin, MEd, BISQUE WARE DIPPER, CAYDEN) degree you have received? Sex Assigned at Date Recorded Male 05/21/2018 2:34 PM CDT documented as of this encounter Last Filed Vital Signs Vital Sign Reading Time Taken Comments Blood Pressure - - Pulse - - Temperature 36.6 ??C (97.8 ??F) 08/22/2021 10:07 AM PHYSICAL DIRECTOR Respiratory Rate - - Oxygen Saturation - [...] the next BCG treatment. Lea Morin R.N. ICAL DIRECTOR documented in this encounter Plan of [...] 0.9% 50 mL Given 08/22/2021 10:10 AM PHYSICAL DIRECTOR 50 mg bladder instillation (JUANY BCG) 50 [...] as of this encounter Care Teams Machine Gunner Relationship Specialty Start Date End Date Shayla Alford D.O. PCP - General Internal Medicine 05/22/[address] [phone] documented as of this encounter
--- OUTSIDE RECORDS SUMMARY | 2022-05-28 07:07 | XMS_ITS | Encounter Summary ---
:1945 Author Organization [facility] Address [address] [place] [address] Care Team Providers Name Role Phone Shayla Alford D.Sabrina Primary Care Provider [phone] Reason for Referral Outpatient (Routine) - Closed Specialty Diagnoses / Procedures Referred By Contact Refer red To Contact Diagnoses Cyst Breast Left Shayla Alford [facility] [place] [facility] Procedures BI Ultrasound Breast Axilla Left D.O. [address], [place] [phone] Referral ID Status Reason Start Date Expiration Date Visits Requ ested Visits Authorized [id number] Closed 09/13/2021 09/13/2022 1 1 S SUPPORT ADMINISTRATOR Reason for Visit Outpatient (Routine) - Closed Specialty Diagnoses / Procedures Referred By Contact Refer red To Contact Diagnoses Cyst Breast Left Shayla Alfrod [facility] [place] [facility] Procedures BI Ultrasound Breast Axilla Left D.O. [address], [place] [phone] Referral ID Status Reason Start Date Expiration Date Visits Requ ested Visits Authorized [id number] Closed 09/13/2021 09/13/2022 1 1 Encounter Details Date Type Department Care Team Description 10/09/2021 Hospital Encounter Department of Bakkali-Derksen, Cyst Breast Left Radiology in [place] [address] [place] [phone] Social History Tobacco Use Types Packs/Day [...] do you attend bahai or Never 2021 catholic services? Do you [...] have completed or the highest Martin, MEd, COMMUNICATIONS PROFESSOR, CAYDEN) degree you have received? Sex [...] SOFYA) times a day. Use to [facility] scan Sofya sensor 5 times daily and [...] this BREAST AXILLA LEFT (most inpatients AM SALES SUPPORT ADMINISTRATOR proce dure are in and all the results outpatients) section. documented in this encounter Results BI Ultrasound Breast Axilla Left (10/09/2021 10:54 AM SALES SUPPORT ADMINISTRATOR) Anatomical Region Laterality Modality Breast, Breast Imaging RST LOS, Breast Imaging FLA LOS Left Ultrasound Specimen (Source) Anatomical Collection Method Collection Time Re ceived Time Location / / Volume Laterality 10/09/2021 10:38 AM SALES SUPPORT ADMINISTRATOR Impressions 10/09/2021 10:41 AM SALES SUPPORT ADMINISTRATOR 1. ??Left gynecomastia corresponds with lump. 2. ??No mammographic or sonographic find ings of malignancy. RECOMMENDATION: ??Individualized Recomme ndation Recommend management be based on clinica l grounds. ASSESSMENT: ??BI-RADS: 2: Benign. Narrative 10/09/2021 10:41 AM SALES SUPPORT ADMINISTRATOR EXAM: ??BI BREAST DIAGNOSTIC BILATERAL WITH TOMOSYNTHESIS, [...] as of this encounter Care Teams Property Condition Assessor Relationship Specialty Start Date End Date Shayla Alford D.O. PCP - General Internal Medicine 05/22/[address] [phone] documented as of this encounter
--- OUTSIDE RECORDS SUMMARY | 2022-05-28 07:07 | XMS_ITS | Encounter Summary ---
:1945 Author Organization [facility] Address [address] [place] [address] Care Team Providers Name Role Phone Shayla Alford D.O. 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 [address] [place] [phone] Referral ID Status Reason Start Date Expiration Date Visits V isits Requested Authorized [id number] Authorized 09/11/2021 09/11/2022 1 1 ICAL SUPPORT TECH Encounter Details Date Type Department Care Team Description 09/11/2021 Orders Only Department of Urology Grace Rehman, Diabetes Mellitus Type 2 With Diabetic Neuropathy (HCC) (Primary Dx); in [place] Dixon, R.NMauro Diabetes Mellitus Type 2 With Diabetic C hronic Kidney Disease (HCC) [place] [address] [place] [phone] Social History Tobacco Use Types Packs/Day Years [...] do you attend zoroastrian or Never 2021 jainism services? Do you [...] have completed or the highest Martin, MEd, TELEPHONE ANSWERER, CAYDEN) degree you have received? Sex Assigned [...] documented as of this encounter Care Teams Piece Work Inspector Relationship Specialty Start Date End Date Shayla Alford D.O. PCP - General Internal Medicine 05/22/[address] [phone] documented as of this encounter
--- OUTSIDE RECORDS SUMMARY | 2022-05-28 07:07 | XMS_ITS | Encounter Summary ---
:1945 Author Organization [facility] Address [address] [place] [address] Care Team Providers Name Role Phone Shayla Alford D.O. Primary Care Provider [phone] Encounter Details Date Type Department Care Team Description 08/27/2021 Hospital Encounter Department of Cirilo Bernal Neoplasm Of Laboratory Medicine Pato Mims Bladder Lateral Wall in [place], [address] ([facility]) [address] [place] [place] [phone] Social History Tobacco Use Types Packs/Day [...] do you attend hinduism or Never 2021 yazdanism services? Do you [...] completed or the highest Martin, MEd, LEAD INJECTION MOLD TECHNICIAN, CAYDEN) degree you have received? Sex [...] times a day. Use to [facility] scan Sofya sensor 5 times [...] PEN NEEDLE, DIABETIC Yani Fine 30 0 [facility] needles. For use with Insulin Pens, 4 times daily SYRINGE-NEEDLE,INSULIN,0 0 .5 ML (INSULIN SYRINGE [facility] [place] traZODone (DESYREL) [...] bedtime. injectionIndications: Diabetes Mellitus Type 2 Hyperglycemia ([facility]) lisinopriL Take 1 tablet by [...] Results for this AEROBIC + SUSC, URINE RN BONE MARROW TRANSPLANT Of Bladder Lateral procedure are in Wall ([facility]) the results section. URINALYSIS WITH Routine 08/27/2021 12:04 Malignant Neoplasm Re sults for this MICROSCOPIC AM RN BONE MARROW TRANSPLANT Of Bladder Lateral procedure are in Wall ([facility]) the results section. documented in this encounter Results (ABNORMAL) Bacterial Culture, Aerobic + Susc, Urine (08/27/2021 8:25 AM RN BONE MARROW TRANSPLANT) [facility] Time Signature Urine Culture Mixed 08/28/2021 [facility] surekha. (A) 10:47 AM RN BONE MARROW TRANSPLANT Specimen Anatomical Collection Method Collection Time Receive d Time (Source) Location / / Volume Laterality Urine (Urine, 08/27/2021 8:25 AM 08/27/20 21 3:01 Midstream) RN BONE MARROW TRANSPLANT PM RN BONE MARROW TRANSPLANT Comment: Specimen Source Site: Urine Prasanna Bernal M.D. LAB MICROBIOLOGY - GENERAL O RDERABLES Performing Organization Address City/State/ZIP Code Phon e Number [facility]- [address] [place] [address] [place] [address] System [address] (ABNORMAL) Urinalysis with Microscopic: Urine, Midstream (08/27/2021 12:04 AM RN BONE MARROW TRANSPLANT) Analysis [facility] Time Signature Source Urine, Urine, 08/27/2021 FB60 Midstream 8:49 AM RN BONE MARROW TRANSPLANT Clarity Clear Clear 08/27/2021 FB60 9:13 AM RN BONE MARROW TRANSPLANT Color Yellow 08/27/2021 FB60 9:13 AM RN BONE MARROW TRANSPLANT Comment: ----REFERENCE VALUE---- Colorless Yellow Mitra Blood Trace (A) Negative 08/27/2021 9:13 AM RN BONE MARROW TRANSPLANT FB60 Nitrite Negative Negative 08/27/2021 9:13 AM RN BONE MARROW TRANSPLANT FB60 Leukocyte Esterase Small (A) Negative 08/27/2021 9:13 AM CS T FB60 Protein 30 (A) mg/dL 08/27/2021 9:13 AM RN BONE MARROW TRANSPLANT FB60 Comment: ----REFERENCE VALUE---- Negative Trace Glucose >=1000 (A) Negative mg/dL 08/27/2021 9:13 AM RN BONE MARROW TRANSPLANT F B60 Ketones, QI(U) Negative Negative mg/dL 08/27/2021 9:[address] FB60 Bilirubin Negative Negative 08/27/2021 9:13 AM RN BONE MARROW TRANSPLANT FB60 pH 5.5 5.0 - 8.0 08/27/2021 9:13 AM RN BONE MARROW TRANSPLANT FB60 Specific [place] 1.015 1.001 - 1.035 08/27/2021 9:13 AM RN BONE MARROW TRANSPLANT FB60 Urobilinogen 0.2 0.2 - 1.0 mg/dL 08/27/2021 9:13 AM CS T FB60 White Blood Cells 4-10 (A) /hpf 08/27/2021 9:13 AM RN BONE MARROW TRANSPLANT FB60 Comment: ----REFERENCE VALUE---- Males: 0-3 Females: 0-10 Unknown: 0-10 Red Blood Cells Occ-2 0 - 2 /hpf 08/27/2021 9:13 AM RN BONE MARROW TRANSPLANT FB60 Squamous Cells 4-10 /hpf 08/27/2021 9:13 AM RN BONE MARROW TRANSPLANT FB 60 Specimen Anatomical Collection Method Collection Time Receive d Time (Source) Location / / Volume Laterality Urine (Urine, 08/27/2021 12:04 08/27/2021 8:49 Midstream) AM RN BONE MARROW TRANSPLANT AM RN BONE MARROW TRANSPLANT Prasanna Bernal M.D. 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 PCP - General Internal Medicine 05/22/[address] [phone] documented as of this encounter
--- OUTSIDE RECORDS SUMMARY | 2022-05-28 07:07 | XMS_ITS | Encounter Summary ---
:1945 Author Organization [facility] Address [address] [place] [address] Care Team Providers Name Role Phone Shayla Alford D.O. Primary Care Provider Encounter Details Date Type Department Care Team Description 09/03/2021 Hospital Encounter Department of Cirilo Bernal Neoplasm Of Laboratory Medicine Pato Mims Bladder Lateral Wall in [place], [address] ([facility]) [address] [place] [phone] Social History Tobacco Use Types Packs/Day [...] do you attend congregation or Never 2021 rastafarian services? Do you [...] have completed or the highest Martin, MEd, RELIABILITY SPECIALIST, CAYDEN) degree you have received? Sex [...] Results for this AEROBIC + SUSC, URINE DRILL OPERATOR AUTOMATIC Of Bladder Lateral procedure are in Wall ([facility]) the results section. URINALYSIS WITH Routine 09/03/2021 8:34 AM Malignant Neoplasm Results for this MICROSCOPIC DRILL OPERATOR AUTOMATIC Of Bladder Lateral procedure are in [place] ([facility]) the results section. documented in this encounter Results (ABNORMAL) Bacterial Culture, Aerobic + Susc, Urine (09/03/2021 8:34 AM DRILL OPERATOR AUTOMATIC) Analysis Performed At Patho logist Time Signature Urine Culture Mixed 09/04/2021 MKTO surekha. (A) 1:23 PM DRILL OPERATOR AUTOMATIC Specimen Anatomical Collection Method Collection Time Receive d Time (Source) Location / / Volume Laterality Urine (Urine, 09/03/2021 8:34 AM 09/03/20 21 2:19 Midstream) DRILL OPERATOR AUTOMATIC PM DRILL OPERATOR AUTOMATIC Comment: Specimen Source Site: Urine Prasanna Bernal M.D. LAB MICROBIOLOGY - GENERAL O RDERABLES Performing Organization Address City/State/ZIP Code Phon e Number [facility]- [facility] [place] [address] [place] [address] System in [place] [address] [place] [address] (ABNORMAL) Urinalysis with Microscopic: Urine, Midstream (09/03/2021 8:34 AM DRILL OPERATOR AUTOMATIC) Analysis Performed At Patho logist Time Signature Source Urine, Urine, 09/03/2021 FB60 Midstream 8:49 AM DRILL OPERATOR AUTOMATIC Clarity Clear Clear 09/03/2021 FB60 8:57 AM DRILL OPERATOR AUTOMATIC Color Yellow 09/03/2021 FB60 8:57 AM DRILL OPERATOR AUTOMATIC Comment: ----REFERENCE VALUE---- Colorless Yellow Mitra Blood Trace (A) Negative 09/03/2021 8:57 AM DRILL OPERATOR AUTOMATIC FB60 Nitrite Negative Negative 09/03/2021 8:57 AM DRILL OPERATOR AUTOMATIC FB60 Leukocyte Esterase Negative Negative 09/03/2021 8:57 AM CS T FB60 Protein Negative mg/dL 09/03/2021 8:57 AM DRILL OPERATOR AUTOMATIC FB60 Comment: ----REFERENCE VALUE---- Negative Trace Glucose >=1000 (A) Negative mg/dL 09/03/2021 8:57 AM DRILL OPERATOR AUTOMATIC F B60 Ketones, QI(U) Negative Negative mg/dL 09/03/2021 8:[address] FB60 Bilirubin Negative Negative 09/03/2021 8:57 AM DRILL OPERATOR AUTOMATIC FB60 pH 5.5 5.0 - 8.0 09/03/2021 8:57 AM DRILL OPERATOR AUTOMATIC FB60 Specific [place] 1.010 1.001 - 1.035 09/03/2021 8:57 AM DRILL OPERATOR AUTOMATIC FB60 Urobilinogen 0.2 0.2 - 1.0 mg/dL 09/03/2021 8:57 AM CS T FB60 White Blood Cells 4-10 (A) /hpf 09/03/2021 9:13 AM DRILL OPERATOR AUTOMATIC FB60 Comment: ----REFERENCE VALUE---- Males: 0-3 Females: 0-10 Unknown: 0-10 Red Blood Cells Occ-2 0 - 2 /hpf 09/03/2021 9:13 AM DRILL OPERATOR AUTOMATIC FB60 Specimen Anatomical Collection Method Collection Time Receive d Time (Source) Location / / Volume Laterality Urine (Urine, 09/03/2021 8:34 AM 09/03/20 8:49 Midstream) DRILL OPERATOR AUTOMATIC AM DRILL OPERATOR AUTOMATIC Prasanna Bernal M.D. 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 PCP - General Internal Medicine 05/22/20 [address] [place] [phone] documented as of this encounter
--- OUTSIDE RECORDS SUMMARY | 2022-05-28 07:07 | XMS_ITS | Encounter Summary ---
:1945 Author Organization [facility] Address [address] [place] [address] Care Team Providers Name Role Phone Shayla Alford D.O. Primary Care Provider [phone] Reason for Visit Reason Comments Communication Encounter Details Date Type Department Care Team Description 08/15/2021 Clinical Communication Department of Urology Lea Morin Communication in [facility] C, R.N. [address] [place] [phone] Social History Tobacco Use [...] have completed or the highest Martin, MEd, CHOIR LEADER, CAYDEN) degree you have received? Sex Assigned at Date Recorded Male 05/21/2018 2:34 PM CDT documented as of this encounter Miscellaneous Notes Telephone Encounter - Jacquie Hamilton, L.P.N. - 08/16/2021 9:12 AM RADIAL DRILL PRESS OPERATOR FOR PLASTIC SUBJECTIVE CHIEF COMPLAINT / REASON FOR CALL Communication Information Discussed Patient contacted with advisement from provider given per Dr Reid direction. Patient requested appt to discuss left breast tenderness PLAN Disposition/Recommendation: patient transferred to appt desk to schedule appt Information/Education: patient/caller able to teach back Caller agreeable to plan of care: yes The following references were used: provider dr reid AL DRILL PRESS OPERATOR FOR PLASTIC Telephone Encounter - Shayla Alofrd D.O. - 08/15/2021 4:22 PM RADIAL DRILL PRESS OPERATOR FOR PLASTIC Our pharmacist Zoya reviewed the patients medication list and did not find that his medications are causing the symptoms. At this point, I am not sure what is the source of the pain. We are happy to seehim in the clinic for further evaluation. Electronically signed by: Shayla Alford D.O. 08/15/21 4:23 PM RADIAL DRILL PRESS OPERATOR FOR PLASTIC AL DRILL PRESS OPERATOR FOR PLASTIC Telephone Encounter - Lea Morin R.N. - 08/15/2021 3:08 PM CST Will forward to PCP to review and advise back to patient. Thank you! AL DRILL PRESS OPERATOR FOR PLASTIC Telephone Encounter - Lea Morin R.N. - [...] and advise, if need, send to PCP. AL DRILL PRESS OPERATOR FOR PLASTIC documented in this encounter Plan of Treatment Not on filedocumented as of this encounter Visit Diagnoses Not on filedocumented in this encounter Additional Health Concerns Assessment Noted Time PHQ-9 Depression Total Score: 18 04/28/2018 11:27 AM C DT documented as of this encounter Care Teams Marine Superintendent Relationship Specialty Start Date End Date Shayla Alford D.O. PCP - General Internal Medicine 05/22/[address] [phone] documented as of this encounter
--- OUTSIDE RECORDS SUMMARY | 2022-05-28 07:07 | XMS_ITS | Encounter Summary ---
:1945 Author Organization [facility] Address [address] [place] [address] Care Team Providers Name Role Phone Shayla Alford D.O. Primary Care Provider [phone] Reason for Visit Reason Comments Nurse Visit Bladder Cancer Appointment Request (Routine) - Closed Specialty Diagnoses / Procedures Referred By Contact Refer red To Contact Urology Referral ID Status Reason Start Date Expiration Date Visits Requ ested Visits Authorized [id number] Closed 07/23/2021 07/23/2022 1 1 Encounter Details Date Type Department Care Team Description 08/29/2021 Nurse Only Department of Urology Lea Morin Nu rse Visit; Bladder in Alicia Dixonkarissa will R.N. Cancer [address] [place] [address] [place], [place] [phone] Social History Tobacco Use Types Packs/Day Years [...] do you attend jew or Never 2021 mu-ism services? Do you [...] have completed or the highest Martin, MEd, TAXI DRIVER SUPERVISOR, CAYDEN) degree you have received? Sex Assigned at Date Recorded Male 05/21/2018 2:34 PM CDT documented as of this encounter Last Filed Vital Signs Vital Sign Reading Time Taken Comments Blood Pressure - - Pulse 51 08/29/2021 10:34 AM SOUND CONTROLLER Temperature - - Respiratory Rate - - Oxygen Saturation 95% 08/29/2021 10:34 AM SOUND CONTROLLER room a ir Inhaled Oxygen Concentration - [...] the next BCG treatment. Lea Morin R.N. D CONTROLLER documented in this encounter Plan of [...] 0.9% 50 mL Given 08/29/2021 10:37 AM SOUND CONTROLLER 50 mg bladder instillation (JUANY BCG) 50 [...] documented as of this encounter Care Teams Rest Room Maid Relationship Specialty Start Date End Date Shayla Alford D.O. PCP - General Internal Medicine 05/22/[address] [phone] documented as of this encounter
--- OUTSIDE RECORDS SUMMARY | 2022-05-28 07:07 | XMS_ITS | Encounter Summary ---
:1945 Author Organization [facility] Address [address] [place] [address] Care Team Providers Name Role Phone Shayla Alford D.O. Primary Care Provider [phone] Encounter Details Date Type Department Care Team Description 09/10/2021 Hospital Encounter Department of Cirilo Bernal Neoplasm Of Laboratory Medicine Pato Mims Bladder Lateral Wall in [place], [address] ([facility]) [address] [place] [phone] Social History Tobacco Use Types Packs/Day [...] do you attend mosque or Never 2021 druze services? Do you [...] completed or the highest Martin, MEd, POLICE LIEUTENANT PRECINCT, CAYDEN) degree you have received? Sex Assigned [...] (FREESTYLE SOFYA) times a day. Use to [facility] scan Sofya sensor 5 times daily and [...] Results for this AEROBIC + SUSC, URINE TRUCK SAFETY INSPECTOR Of Bladder Lateral procedure are in [place] ([facility]) the results section. URINALYSIS WITH Routine 09/10/2021 8:27 AM Malignant Neoplasm Results for this MICROSCOPIC TRUCK SAFETY INSPECTOR Of Bladder Lateral procedure are in [place] ([facility]) the results section. documented in this encounter Results (ABNORMAL) Bacterial Culture, Aerobic + Susc, Urine (09/10/2021 8:27 AM TRUCK SAFETY INSPECTOR) Analysis Performed At Patho logist Time Signature Urine Culture Mixed 09/11/2021 [place] surekha. (A) 1:04 PM TRUCK SAFETY INSPECTOR Specimen Anatomical Collection Method Collection Time Receive d Time (Source) Location / / Volume Laterality Urine (Urine, 09/10/2021 8:27 AM 09/10/20 21 3:35 Midstream) TRUCK SAFETY INSPECTOR PM TRUCK SAFETY INSPECTOR Comment: Specimen Source Site: Urine Mid stream Prasanna Bernal M.D. LAB MICROBIOLOGY - GENERAL O RDERABLES Performing Organization Address City/State/ZIP Code Phon e Number [facility]- [address] [place] [address] [place] [address] System in [place] [facility] [facility] (ABNORMAL) Urinalysis with Microscopic: Urine, Midstream (09/10/2021 8:27 AM TRUCK SAFETY INSPECTOR) Analysis [facility]formed At [facility] Time Signature Source Urine, Urine, 09/10/2021 FB60 Midstream 8:44 AM TRUCK SAFETY INSPECTOR Clarity Clear Clear 09/10/2021 FB60 8:58 AM TRUCK SAFETY INSPECTOR Color Yellow 09/10/2021 FB60 8:58 AM TRUCK SAFETY INSPECTOR Comment: ----REFERENCE VALUE---- Colorless Yellow Mitra Blood Small (A) Negative 09/10/2021 8:58 AM TRUCK SAFETY INSPECTOR FB60 Nitrite Negative Negative 09/10/2021 8:58 AM TRUCK SAFETY INSPECTOR FB60 Leukocyte Esterase Trace (A) Negative 09/10/2021 8:58 AM CS T FB60 Protein Negative mg/dL 09/10/2021 8:58 AM TRUCK SAFETY INSPECTOR FB60 Comment: ----REFERENCE VALUE---- Negative Trace Glucose >=1000 (A) Negative mg/dL 09/10/2021 8:58 AM TRUCK SAFETY INSPECTOR F B60 Ketones, QI(U) Negative Negative mg/dL 09/10/2021 8:[address] FB60 Bilirubin Negative Negative 09/10/2021 8:58 AM TRUCK SAFETY INSPECTOR FB60 pH 5.5 5.0 - 8.0 09/10/2021 8:58 AM TRUCK SAFETY INSPECTOR FB60 Specific [place] 1.015 1.001 - 1.035 09/10/2021 8:58 AM TRUCK SAFETY INSPECTOR FB60 Urobilinogen 0.2 0.2 - 1.0 mg/dL 09/10/2021 8:58 AM CS T FB60 White Blood Cells 4-10 (A) /hpf 09/10/2021 9:00 AM TRUCK SAFETY INSPECTOR FB60 Comment: ----REFERENCE VALUE---- Males: 0-3 Females: 0-10 Unknown: 0-10 Red Blood Cells None Seen 0 - 2 /hpf 09/10/2021 9:00 AM TRUCK SAFETY INSPECTOR FB60 Specimen Anatomical Collection Method Collection Time Receive d Time (Source) Location / / Volume Laterality Urine (Urine, 09/10/2021 8:27 AM 09/10/20 8:44 Midstream) TRUCK SAFETY INSPECTOR AM TRUCK SAFETY INSPECTOR Prasanna Bernal M.D. 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 PCP - General Internal Medicine 05/22/20 [address] [place] [phone] documented as of this encounter
--- OUTSIDE RECORDS SUMMARY | 2022-05-28 07:07 | XMS_ITS | Encounter Summary ---
:1945 Author Organization [facility] Address [address] [place] [address] Care Team Providers Name Role Phone Shayla Alford D.O. Primary Care Provider [phone] Reason for Visit Appointment Request (Routine) - Closed Specialty Diagnoses / Procedures Referred By Contact Refer red To Contact Urology Referral ID Status Reason Start Date Expiration Date Visits Requ ested Visits Authorized [id number] Closed 07/23/2021 07/23/2022 1 1 Encounter Details Date Type Department Care Team Description 09/05/2021 Nurse Only Department of Urology in [facility] [place] [address] [place] [phone] Social History Tobacco Use Types Packs/Day Years [...] do you attend worship or Never 2021 bahai services? Do you [...] have completed or the highest Martin, MEd, PLANNING ADVISOR, CAYDEN) degree you have received? Sex Assigned at Date Recorded Male 05/21/2018 2:34 PM CDT documented as of this encounter Last Filed Vital Signs Vital Sign Reading Time Taken Comments Blood Pressure - - Pulse - - Temperature 36.6 ??C (97.8 ??F) 09/05/2021 9:53 AM TOOL DESIGN DRAFTSPERSON Respiratory Rate 18 09/05/2021 9:53 AM TOOL DESIGN DRAFTSPERSON Oxygen Saturation - - Inhaled Oxygen Concentration [...] the next BCG treatment. Lea Morin R.N. DESIGN DRAFTSPERSON documented in this encounter Plan of Treatment [...] 0.9% 50 mL Given 09/05/2021 9:57 AM TOOL DESIGN DRAFTSPERSON 5 0 mg bladder instillation (JUANY BCG) [...] documented as of this encounter Care Teams Manufacturing Engineering Intern Relationship Specialty Start Date End Date Shayla Alford D.O. PCP - General Internal Medicine 05/22/20 [address] [place] [phone] documented as of this encounter
--- OUTSIDE RECORDS SUMMARY | 2022-05-28 07:07 | XMS_ITS | Encounter Summary ---
:1945 Author Organization [facility] Address [address] [place] [address] Care Team Providers Name Role Phone Shayla Alford D.O. Primary Care Provider [phone] Reason for Visit Reason Comments Nurse Visit Bladder Cancer Appointment Request (Routine) - Closed Specialty Diagnoses / Procedures Referred By Contact Refer red To Contact Urology Referral ID Status Reason Start Date Expiration Date Visits Requ ested Visits Authorized [id number] Closed 07/23/2021 07/23/2022 1 1 Encounter Details Date Type Department Care Team Description 09/12/2021 Nurse Only Department of Urology Lea Morin Nu rse Visit; Bladder in Alicia Dixon suman R.N. Cancer [address] [place] [address] [place], [place] [phone] Social History Tobacco Use Types Packs/Day Years [...] do you attend congregational or Never 2021 orthodox services? Do you [...] completed or the highest Martin, MEd, TRACK REPAIRER, CAYDEN) degree you have received? Sex Assigned at Date Recorded Male 05/21/2018 2:34 PM CDT documented as of this encounter Last Filed Vital Signs Vital Sign Reading Time Taken Comments Blood Pressure - - Pulse - - Temperature 36.4 ??C (97.6 ??F) 09/12/2021 9:21 AM BED CONTROL SPECIALIST Respiratory Rate - - Oxygen Saturation - [...] the next BCG treatment. Lea Morin R.N. CONTROL SPECIALIST documented in this encounter Plan of [...] 0.9% 50 mL Given 09/12/2021 9:22 AM BED CONTROL SPECIALIST 5 0 mg bladder instillation (JUANY BCG) [...] documented as of this encounter Care Teams Surgical Scrub Tech Relationship Specialty Start Date End Date Shayla Alford D.O. PCP - General Internal Medicine 05/22/20 [address] [place] [phone] documented as of this encounter
--- OUTSIDE RECORDS SUMMARY | 2022-05-28 07:07 | XMS_ITS | Encounter Summary ---
:1945 Author Organization [facility] Address [address] [place] [address] Care Team Providers Name Role Phone Shayla Alford D.O. Primary Care Provider [phone] Reason for Visit Reason Comments Gouty arthritis Encounter Details Date Type Department Care Team Description 09/02/2021 - Emergency [facility] Gout Arthritis (Primary 09/03/[address] [place]x) [place] [phone] Social History Tobacco Use Types Packs/Day [...] do you attend hoahaoism or Never 2021 islam services? Do you [...] have completed or the highest Martin, MEd, PC TECH, CAYDEN) degree you have received? Sex [...] (FREESTYLE SOFYA) times a day. Use to [facility] scan Sofya sensor 5 times daily and [...] PEN NEEDLE, DIABETIC Yani Fine 30 0 [facility] disposable needles. For use with Insulin Pens, 4 times daily SYRINGE-NEEDLE,INSULIN,0 0 .5 ML (INSULIN SYRINGE [facility]) traZODone (DESYREL) 100 Take 0.5 tablets (50 [...] as of this encounter Care Teams Dental Specialist Relationship Specialty Start Date End Date Shayla Alford D.O. PCP - General Internal Medicine 05/22/[address] [place] [phone] documented as of this encounter
--- OUTSIDE RECORDS SUMMARY | 2022-05-28 07:07 | XMS_ITS | Encounter Summary ---
:1945 Author Organization [facility] Address [address] [place] [address] Care Team Providers Name Role Phone Shayla Alford D.O. Primary Care Provider [phone] Reason for Referral Outpatient (Routine) - Closed Specialty Diagnoses / Procedures Referred By Contact Refer red To Contact Diagnoses Cyst Breast Left Shayla Alford [facility] Region Procedures BI Breast Diagnostic Bilateral with Tomosynthesis D.O. [address] [place] [phone] Referral ID Status Reason Start Date Expiration Date Visits Requ ested Visits Authorized [id number] Closed 09/14/2021 09/14/2022 1 1 HANDISE SHOPPER Reason for Visit Outpatient (Routine) - Closed Specialty Diagnoses / Procedures Referred By Contact Refer red To Contact Diagnoses Cyst Breast Left Shayla Alford [facility] Region Procedures BI Breast Diagnostic Bilateral with Tomosynthesis D.O. [address], [place] [phone] Referral ID Status Reason Start Date Expiration Date Visits Requ ested Visits Authorized [id number] Closed 09/14/2021 09/14/2022 1 1 Encounter Details Date Type Department Care Team Description 10/09/2021 Hospital Encounter Department of [place], Cyst Breast Left [place] [address] [place] [phone] Social History Tobacco Use Types Packs/Day [...] completed or the highest Martin, MEd, HYDRAULIC GOVERNOR ASSEMBLER, CAYDEN) degree you have received? Sex [...] (FREESTYLE SOFYA) a day. Use to scan [facility] Sofya sensor 5 times daily and as [...] Shayla Alford D.O. - 10/09/2021 11:05 AM MERCHANDISE SHOPPER Good news, there is no cancer of the breast. There is some enlargement in the breast tissue which islikely related to medications. If it does not improve, we can do further testing. This will mean more blood work. Electronically signed by: Shayla Alford D.O. 10/09/21 11:05 AM MERCHANDISE SHOPPER HANDISE SHOPPER documented in this encounter Plan of Treatment Not on filedocumented as of this encounter Procedures Procedure Name Priority Date/Time Associated Comments Diagnosis BI BREAST DIAGNOSTIC RAD - Routine 10/09/2021 10:08 Cyst Breast Lef t Results for BILATERAL WITH (most inpatients AM MERCHANDISE SHOPPER this proc edure TOMOSYNTHESIS and all are in the outpatients) results section. documented in this encounter Results BI Breast Diagnostic Bilateral with Tomosynthesis (10/09/2021 10:08 AM MERCHANDISE SHOPPER) Anatomical Region Laterality Modality Breast, Breast Imaging RST LOS, Breast Imaging ARZ LOS, [place] st Bilateral Mammography Imaging FLA LOS Specimen (Source) Anatomical Collection Method Collection Time Re ceived Time Location / / Volume Laterality 10/09/2021 10:38 AM MERCHANDISE SHOPPER Impressions 10/09/2021 10:41 AM MERCHANDISE SHOPPER 1. ??Left gynecomastia corresponds with lump. 2. ??No mammographic or sonographic find ings of malignancy. RECOMMENDATION: ??Individualized Recomme ndation Recommend management be based on clinica l grounds. ASSESSMENT: ??BI-RADS: 2: Benign. Narrative 10/09/2021 10:41 AM MERCHANDISE SHOPPER EXAM: ??BI BREAST DIAGNOSTIC BILATERAL WITH TOMOSYNTHESIS, [...] as of this encounter Care Teams Collection Teller Relationship Specialty Start Date End Date Shayla Alford D.O. PCP - General Internal Medicine 05/22/20 [address], [place] [phone] documented as of this encounter
--- OUTSIDE RECORDS SUMMARY | 2022-05-28 07:07 | XMS_ITS | Encounter Summary ---
:1945 Author Organization [facility] Address [address] [place] [address] Care Team Providers Name Role Phone Shayla Alford D.O. Primary Care Provider [phone] Reason for Referral Outpatient (Routine) - Closed Specialty Diagnoses / Procedures Referred By Contact Refer red To Contact [facility] Internal ARMAAN Alford SE, D.O. [address] [place] [phone] Referral ID Status Reason Start Date Expiration Date Visits Requ ested Visits Authorized [id number] Closed 07/31/2021 07/31/2022 1 1 Scheduling Instructions Please schedule one hour to address preo p colonoscopy , diabetes , bladder cancer , and asthma Reason for Visit Reason Comments Heart Failure CKD, Diabetes Mellitus Outpatient (Routine) - Closed Specialty Diagnoses / Procedures Referred By Contact Refer red To Contact [facility] Internal ARMAAN Alford SE, D.O. [address] [place] [phone] Referral ID Status Reason Start Date Expiration Date Visits Requ ested Visits Authorized [id number] Closed 06/19/2021 06/19/2022 1 1 Encounter Details Date Type Department Care Team Description 07/31/2021 Office Visit Department of Internal Selvin Alford ypertension Essential Primary (Primary Dx); [place] . 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 Sex [...] him today. [place] where [place] an observatory director. He states that his glucose this morning [...] The patient has a scheduled trip to [address] [place] [address]. We discussed the importance of following his [...] him today. He is followed at the [place] where he sees an observatory director. He states that his glucose this morning [...] patient has a scheduled trip to [facility]. We discussed the importance of [...] by: Shayla Alford D.O. 08/07/21 7:[address] documented in this encounter Plan of Treatment Scheduled Orders Name Type Priority Associated Diagnoses Order S chedule Hemoglobin A1c Lab Routine Diabetes Mellitus Type 2 W ith Expected: 10/31/2021 Diabetic Chronic Kidney (Brenda roximate), Expires: Disease (HCC) 07/31/2022 Scheduled Referrals Name Type Priority Associated Diagnoses Order S [facility] shawdule Community Internal Outpatient Referral Routine Ex pected: [...] as of this encounter Care Teams Personal Injury Law Specialist Relationship Specialty Start Date End Date Shayla Alford D.O. PCP - General Internal Medicine 05/22/[address] [phone] documented as of this encounter
--- OUTSIDE RECORDS SUMMARY | 2022-05-28 07:07 | XMS_ITS | Encounter Summary ---
:1945 Author Organization [facility] Address [address] [place] [address] Care Team Providers Name Role Phone Shayla Alford D.O. Primary Care Provider [phone] Encounter Details Date Type Department Care Team Description 08/20/2021 Hospital Encounter Department of Cirilo Bernal Neoplasm Of Laboratory Medicine Pato Mims Bladder Lateral Wall in [place], [address] ([facility]) [address] [place] [phone] Social History Tobacco Use Types Packs/Day [...] do you attend synagogue or Never 2021 latter day services? Do [...] have completed or the highest Martin, MEd, VELVET STEAMER, CAYDEN) degree you have received? Sex Assigned [...] a day. Use to [facility] scan Sofya [...] PEN NEEDLE, DIABETIC Yani Fine 30 0 [facility] disposable needles. For use with Insulin Pens, 4 times daily SYRINGE-NEEDLE,INSULIN,0 0 .5 ML (INSULIN SYRINGE [facility]) traZODone (DESYREL) 100 Take 0.5 tablets (50 [...] Diabetes Mellitus Type 2 Hyperglycemia ([facility]) lisinopriL Take 1 tablet by 0 [...] Results for this AEROBIC + SUSC, URINE FASHION ILLUSTRATOR Of Bladder Lateral procedure are in [place] ([facility]) the results section. URINALYSIS WITH Routine 08/20/2021 8:19 AM Malignant Neoplasm Results for this MICROSCOPIC FASHION ILLUSTRATOR Of Bladder Lateral procedure are in [place] ([facility]) the results section. documented in this encounter Results (ABNORMAL) Bacterial Culture, Aerobic + Susc, Urine (08/20/2021 8:19 AM FASHION ILLUSTRATOR) Analysis Performed At [facility] Urine Culture Mixed 08/21/2021 [facility] surekha. (A) 10:32 AM FASHION ILLUSTRATOR Specimen Anatomical Collection Method Collection Time Receive d Time (Source) Location / / Volume Laterality Urine (Urine, 08/20/2021 8:19 AM 08/20/20 2:13 Midstream) FASHION ILLUSTRATOR PM FASHION ILLUSTRATOR Comment: Specimen Source Site: Urine Prasanna Bernal M.D. LAB MICROBIOLOGY - GENERAL O RDERABLES Performing Organization Address City/State/ZIP Code Phon e Number [facility]- [address] [place] [address] [place] [address] (ABNORMAL) Urinalysis with Microscopic: Urine, Midstream (08/20/2021 8:19 AM FASHION ILLUSTRATOR) Analysis Performed At [facility] Signature Source Urine, Urine, 08/20/2021 FB60 Midstream 8:47 AM FASHION ILLUSTRATOR Clarity Clear Clear 08/20/2021 FB60 9:04 AM FASHION ILLUSTRATOR Color Yellow 08/20/2021 FB60 9:04 AM FASHION ILLUSTRATOR Comment: ----REFERENCE VALUE---- Colorless Yellow Mitra Blood Small (A) Negative 08/20/2021 9:04 AM FASHION ILLUSTRATOR FB60 Nitrite Negative Negative 08/20/2021 9:04 AM FASHION ILLUSTRATOR FB60 Leukocyte Esterase Negative Negative 08/20/2021 9:04 AM CS T FB60 Protein Negative mg/dL 08/20/2021 9:04 AM FASHION ILLUSTRATOR FB60 Comment: ----REFERENCE VALUE---- Negative Trace Glucose >=1000 (A) Negative mg/dL 08/20/2021 9:04 AM FASHION ILLUSTRATOR F B60 Ketones, QI(U) Negative Negative mg/dL 08/20/2021 9:[address] FB60 Bilirubin Negative Negative 08/20/2021 9:04 AM FASHION ILLUSTRATOR FB60 pH 5.5 5.0 - 8.0 08/20/2021 9:04 AM FASHION ILLUSTRATOR FB60 Specific [place] 1.010 1.001 - 1.035 08/20/2021 9:04 AM FASHION ILLUSTRATOR FB60 Urobilinogen 0.2 0.2 - 1.0 mg/dL 08/20/2021 9:04 AM CS T FB60 White Blood Cells 11-20 (A) /hpf 08/20/2021 9:04 AM FASHION ILLUSTRATOR FB60 Comment: ----REFERENCE VALUE---- Males: 0-3 Females: 0-10 Unknown: 0-10 Red Blood Cells Occ-2 0 - 2 /hpf 08/20/2021 9:04 AM FASHION ILLUSTRATOR FB60 Dysmorphic Red Blood Cells <=25 <=25 % 08/20/2021 9: 04 AM FASHION ILLUSTRATOR FB60 Squamous Cells Occ-3 /hpf 08/20/2021 9:04 AM FASHION ILLUSTRATOR FB 60 Specimen Anatomical Collection Method Collection Time Receive d Time (Source) Location / / Volume Laterality Urine (Urine, 08/20/2021 8:19 AM 08/20/20 8:47 Midstream) FASHION ILLUSTRATOR AM FASHION ILLUSTRATOR Prasanna Bernal M.D. LAB URINE ORDERABLES Performing Organization Address City/State/ZIP Code Phon e Number [facility]- [address] [place] [address] [facility] [address] [place] [address] System in [place] [address] documented in this encounter Visit Diagnoses Diagnosis 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 (HCC) documented in this encounter Additional Health Concerns Assessment Noted Time PHQ-9 Depression Total Score: 18 04/28/2018 11:27 AM C DT documented as of this encounter Care Teams Lining Stitcher Relationship Specialty Start Date End Date Shayla Alford D.O. PCP - General Internal Medicine 05/22/[address] [phone] documented as of this encounter
--- OUTSIDE RECORDS SUMMARY | 2022-05-28 07:07 | XMS_ITS | Encounter Summary ---
:1945 Author Organization [facility] Address [address] [place] [address] Care Team Providers Name Role Phone Shayla Alford D.O. Primary Care Provider [phone] Reason for Visit Appointment Request (Routine) - Closed Specialty Diagnoses / Procedures Referred By Contact Refer red To Contact Urology Referral ID Status Reason Start Date Expiration Date Visits Requ ested Visits Authorized [id number] Closed 07/23/2021 07/23/2022 1 1 Encounter Details Date Type Department Care Team Description 09/19/2021 Nurse Only Department of Urology in [facility] [place], [place] [address] [place] [phone] Social History Tobacco Use Types Packs/Day Years [...] have completed or the highest Martin, MEd, PLASTERER STUCCO, CAYDEN) degree you have received? Sex Assigned [...] scheduled for the cystoscopy. Lea Morin R.N. STRIAL PRODUCTION MANAGER documented in this encounter Plan of [...] 0.9% 50 mL Given 09/19/2021 10:35 AM INDUSTRIAL PRODUCTION MANAGER 50 mg bladder instillation (JUANY BCG) 50 [...] as of this encounter Care Teams Brand Analyst Relationship Specialty Start Date End Date Shayla Alford D.O. PCP - General Internal Medicine 05/22/[address] [address] documented as of this encounter
--- OUTSIDE RECORDS SUMMARY | 2022-05-28 07:07 | XMS_ITS | Encounter Summary ---
:1945 Author Organization [facility] Address [address] [place] [address] Care Team Providers Name Role Phone Shayla Alford D.O. Primary Care Provider Reason for Visit Reason Comments Nurse Visit Bladder Cancer Appointment Request (Routine) - Closed Specialty Diagnoses / Procedures Referred By Contact Refer red To Contact Urology Referral ID Status Reason Start Date Expiration Date Visits Requ ested Visits Authorized [id number] Closed 07/23/2021 07/23/2022 1 1 Encounter Details Date Type Department Care Team Description 08/15/2021 Nurse Only Department of Urology Lea Morin Nu rse Visit; Bladder in Alicia Dixonkarissa will R.N. Cancer [address] [place] [address] [place], [place] [phone] Social History Tobacco Use Types Packs/Day Years [...] do you attend buddhist or Never 2021 mandaen services? Do you [...] completed or the highest Martin, MEd, POLICE COMMANDING OFFICER, CAYDEN) degree you have received? Sex Assigned at Date Recorded Male 05/21/2018 2:34 PM CDT documented as of this encounter Last Filed Vital Signs Vital Sign Reading Time Taken Comments Blood Pressure - - Pulse 48 08/15/2021 8:51 AM GOLF TECHNICIAN Temperature 36.6 ??C (97.8 ??F) 08/15/2021 8:51 AM GOLF TECHNICIAN Respiratory Rate - - Oxygen Saturation 98% 08/15/2021 8:51 AM GOLF TECHNICIAN room ai r Inhaled Oxygen Concentration - [...] up scheduled for: 08/22/21 Lea Morin R.N. TECHNICIAN documented in this encounter Plan of [...] 0.9% 50 mL Given 08/15/2021 9:00 AM GOLF TECHNICIAN 5 0 mg bladder instillation (JUANY BCG) [...] documented as of this encounter Care Teams Helmet Binder Relationship Specialty Start Date End Date Shayla Alford D.O. PCP - General Internal Medicine 05/22/[address] [address] documented as of this encounter
--- OUTSIDE RECORDS SUMMARY | 2022-05-28 07:07 | XMS_ITS | Encounter Summary ---
:1945 Author Organization [facility] Address [address] [place] [address] Care Team Providers Name Role Phone Shayla Alford D.O. Primary Care Provider [phone] Reason for Referral Outpatient (Routine) - Closed Specialty Diagnoses / Procedures Referred By Contact Refer red To Contact Community Internal Diagnoses Preoperative Exam ARMAAN Alford [facility] Tulio Mcguire [address] [place] [phone] Referral ID Status Reason Start Date Expiration Date Visits Requ ested Visits Authorized [id number] Closed 09/13/2021 09/13/2022 1 1 RT CUSTOMER SERVICE MANAGER Outpatient (Routine) - Closed Specialty Diagnoses / Procedures Referred By Contact Refer red To Contact Dermatology Diagnoses Lesion Skin Shayla Alford D.O. [facility] [address] [place] [phone] Referral ID Status Reason Start Date Expiration Date Visits V isits Requested Authorized [id number] Closed Specialty 09/13/2021 09/13/2022 1 1 Services Required RT CUSTOMER SERVICE MANAGER Outpatient (Routine) - Closed Specialty Diagnoses / Procedures Referred By Contact Refer red To Contact Diagnoses Cyst Breast Left Shayla Alford [facility] [place] [facility] Procedures BI Ultrasound Breast Axilla Left [place].O. [address], [place] [address] Referral ID Status Reason Start Date Expiration Date Visits Requ ested Visits Authorized [id number] Closed 09/13/2021 09/13/2022 1 1 RT CUSTOMER SERVICE MANAGER Reason for Visit Reason Comments Pre-op Exam Colonoscopy-DOS Unknown. 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 Chronic Kidney Disease (CKD), Stage 3b G lomerular Filtration Rate (GFR) 30 To 44 (HCC); [place] [address] [place] [address] Hypothyroidism; [address] [place], [place] Cyst Breast Left; [place] [address] Lesion Skin; [phone] Preoperative Exam Social History [...] do you attend muslim or Never 2021 advent services? Do you belong to any clubs or No 10/09/2021 organizations such as muslim groups, unions, fraALEXANDALEXA or athletic groups, or school groups? How [...] have completed or the highest Martin, MEd, PHARMACIST ASSISTANT, CAYDEN) degree you have received? Sex Assigned at Date Recorded Male 05/21/2018 2:34 PM CDT documented as of this encounter Last Filed Vital Signs Vital Sign Reading Time Taken Comments Blood Pressure 120/62 09/13/2021 10:59 AM IMPORT CUSTOMER SERVICE MANAGER Pulse 60 09/13/2021 10:59 AM IMPORT CUSTOMER SERVICE MANAGER Temperature 36.3 ??C (97.4 ??F) 09/13/2021 10:59 AM IMPORT CUSTOMER SERVICE MANAGER Respiratory Rate - - Oxygen Saturation - - Inhaled Oxygen Concentration - - Weight 99.9 kg (220 lb 3.8 oz) 09/13/2021 10:59 AM IMPORT CUSTOMER SERVICE MANAGER Height 190.5 cm (6' 3) 09/13/2021 10:59 AM IMPORT CUSTOMER SERVICE MANAGER Body Mass Index 27.53 09/13/2021 10:59 AM IMPORT CUSTOMER SERVICE MANAGER documented in this encounter H&P Notes Shayla [...] increased fatigue. He is followed locally in [facility] urology clinic. He does have a repeat [...] him today. He is managed through the MD for his diabetes and awaiting the [employer] monitoring system. He has done well on [...] [facility] and [facility] the 4th aspect monitoring system. He has done well on [...] visit (clinic); Future; Expected date: 10/14/2021 - [facility] Internal Medicine office visit (clinic); Future; Expected date: 10/14/2021 Other orders - [facility] Internal Medicine office visit (clinic) Symptoms: [...] by: Shayla Alford D.O. 10/05/21 2:47 PM IMPORT CUSTOMER SERVICE MANAGER Time spent 32 minutes RT CUSTOMER SERVICE MANAGER documented in this encounter Plan of [...] Ultrasound Breast Axilla Left (10/09/2021 10:54 AM IMPORT CUSTOMER SERVICE MANAGER) Anatomical Region Laterality Modality Breast, Breast Imaging RST LOS, Breast Imaging [facility] Left Ultrasound Specimen (Source) Anatomical Collection Method Collection Time Re ceived Time Location / / Volume Laterality 10/09/2021 10:38 AM IMPORT CUSTOMER SERVICE MANAGER Impressions 10/09/2021 10:41 AM IMPORT CUSTOMER SERVICE MANAGER 1. ??Left gynecomastia corresponds with lump. 2. ??No mammographic or sonographic find ings of malignancy. RECOMMENDATION: ??Individualized Recomme ndation Recommend management be based on clinica l grounds. ASSESSMENT: ??BI-RADS: 2: Benign. Narrative 10/09/2021 10:41 AM IMPORT CUSTOMER SERVICE MANAGER EXAM: ??BI BREAST DIAGNOSTIC BILATERAL WITH TOMOSYNTHESIS, [...] documented as of this encounter Care Teams Stained Glass Window Designer Relationship Specialty Start Date End Date Shayla Alford D.O. PCP - General Internal Medicine 05/22/20 [address] [place] [address] documented as of this encounter
--- OUTSIDE RECORDS SUMMARY | 2022-05-28 07:07 | XMS_ITS | Encounter Summary ---
:1945 Author Organization [facility] Address [address] [place] [address] Care Team Providers Name Role Phone Shayla Alford D.O. Primary Care Provider [phone] Encounter Details Date Type Department Care Team Description 08/13/2021 Hospital Encounter Department of Cirilo Bernal Neoplasm Of Laboratory Medicine Pato Mims Bladder Lateral Wall in [place], [address] ([facility]) [address] [place] [phone] Social History Tobacco Use Types Packs/Day [...] do you attend religious or Never 2021 latter-day services? Do you [...] have completed or the highest Martin, MEd, KISS MACHINE OPERATOR, CAYDEN) degree you have received? [...] SOFYA) times a day. Use to [facility] scan Sofya sensor 5 [...] Results for this AEROBIC + SUSC, URINE LONG WALL MINING MACHINE TENDER Of Bladder Lateral procedure are in Wall ([facility]) the results section. URINALYSIS WITH Routine 08/13/2021 8:03 AM Malignant Neoplasm Results for this MICROSCOPIC LONG WALL MINING MACHINE TENDER Of Bladder Lateral procedure are in Wall ([facility]) the results section. documented in this encounter Results (ABNORMAL) Bacterial Culture, Aerobic + Susc, Urine (08/13/2021 8:03 AM LONG WALL MINING MACHINE TENDER) Analysis Performed At [facility] Urine Culture Mixed 08/14/2021 [facility] surekha. (A) 9:53 AM LONG WALL MINING MACHINE TENDER Specimen Anatomical Collection Method Collection Time Receive d Time (Source) Location / / Volume Laterality Urine (Urine, 08/13/2021 8:03 AM 08/13/20 21 2:11 Midstream) LONG WALL MINING MACHINE TENDER PM LONG WALL MINING MACHINE TENDER Comment: Specimen Source Site: Urine Prasanna Bernal M.D. LAB MICROBIOLOGY - GENERAL O RDERABLES Performing Organization Address City/State/ZIP Code Phon e Number [facility]- [address] [place] [address] [place] [address] (ABNORMAL) Urinalysis with Microscopic: Urine, Midstream (08/13/2021 8:03 AM LONG WALL MINING MACHINE TENDER) Analysis Performed At [facility] Signature Source Urine, Urine, 08/13/2021 FB60 Midstream 8:31 AM LONG WALL MINING MACHINE TENDER Clarity Clear Clear 08/13/2021 FB60 8:57 AM LONG WALL MINING MACHINE TENDER Color Yellow 08/13/2021 FB60 8:57 AM LONG WALL MINING MACHINE TENDER Comment: ----REFERENCE VALUE---- Colorless Yellow Mitra Blood Small (A) Negative 08/13/2021 8:57 AM LONG WALL MINING MACHINE TENDER FB60 Nitrite Negative Negative 08/13/2021 8:57 AM LONG WALL MINING MACHINE TENDER FB60 Leukocyte Esterase Trace (A) Negative 08/13/2021 8:57 AM CS T FB60 Protein Trace mg/dL 08/13/2021 8:57 AM LONG WALL MINING MACHINE TENDER FB60 Comment: ----REFERENCE VALUE---- Negative Trace Glucose >=1000 (A) Negative mg/dL 08/13/2021 8:57 AM LONG WALL MINING MACHINE TENDER F B60 Ketones, QI(U) Negative Negative mg/dL 08/13/2021 8:[address] FB60 Bilirubin Negative Negative 08/13/2021 8:57 AM LONG WALL MINING MACHINE TENDER FB60 pH 5.5 5.0 - 8.0 08/13/2021 8:57 AM LONG WALL MINING MACHINE TENDER FB60 Specific [place] 1.015 1.001 - 1.035 08/13/2021 8:57 AM LONG WALL MINING MACHINE TENDER FB60 Urobilinogen 0.2 0.2 - 1.0 mg/dL 08/13/2021 8:57 AM CS T FB60 White Blood Cells Occ-3 /hpf 08/13/2021 8:57 AM LONG WALL MINING MACHINE TENDER FB60 Comment: ----REFERENCE VALUE---- Males: 0-3 Females: 0-10 Unknown: 0-10 Red Blood Cells None Seen 0 - 2 /hpf 08/13/2021 8:57 AM LONG WALL MINING MACHINE TENDER FB60 Squamous Cells Occ-3 /hpf 08/13/2021 8:57 AM LONG WALL MINING MACHINE TENDER FB 60 Specimen Anatomical Collection Method Collection Time Receive d Time (Source) Location / / Volume Laterality Urine (Urine, 08/13/2021 8:03 AM 08/13/20 8:31 Midstream) LONG WALL MINING MACHINE TENDER AM LONG WALL MINING MACHINE TENDER Prasanna Bernal M.D. 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 PCP - General Internal Medicine 05/22/[address] [address] documented as of this encounter
--- OUTSIDE RECORDS SUMMARY | 2022-05-28 07:08 | XMS_ITS | Encounter Summary ---
:1945 Author Organization [facility] Address [address] [place] [address] Care Team Providers Name Role Phone Shayla Alford D.O. Primary Care Provider [phone] Reason for Visit Reason Comments Pre-op Exam cystoscopy; 07/18/21 Appointment Request (Routine) - Closed Specialty Diagnoses / Procedures Referred By Contact Refer red To Contact Community Internal Medicine Referral ID Status Reason Start Date Expiration Date Visits Requ ested Visits Authorized [id number] Closed 07/10/2021 07/10/2022 1 1 Encounter Details Date Type Department Care Team Description 07/11/2021 Office Visit Department of Bandar De Leon Preoperativ e Exam (Primary Dx); Internal Medicine in [place] 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 Do you [...] have completed or the highest Martin, MEd, MICROSOFT DYNAMICS AX DEVELOPER, CAYDEN) degree you have received? Sex [...] scheduled for 07/18/[address] Bernal at [facility]. Cardiac: Chest pain or shortness of breath [...] Master's degree (e.g., MA, MS, Martin, MEd, MICROSOFT DYNAMICS AX DEVELOPER, CAYDEN) Occupational History Employer: RETIRED Tobacco Use [...] than three times a week ??? Attends Anabaptist Services: Never ??? Active Member of Clubs [...] 08/28/[address] Prasanna Bernal at the [facility]. ??? TONSILLECTOMY ??? TONSILLECTOMY 1967 ??? [...] , Rfl: ??? SYRINGE-NEEDLE,INSULIN,0.5 ML (INSULIN SYRINGE [facility]), , Disp: , Rfl: ??? torsemide (DEMADEX) 20 mg tablet, Take 2 tablets (40 mg total) by mouth every morning before breakfast., Disp: 180 tablet, Rfl: 3 ??? traZODone (DESYREL) 100 mg tablet, Take 0.5 tablets (50 mg total) by mouth at bedtime as needed for sleep., Disp: 30 tablet, Rfl: 1 ??? flash glucose scanning reader (FREESTYLE SOFYA) [facility], 1 each 5 (five) times a [...] surgery I would recommend re-evaluation with [facility]. 8. Hypertension Essential Primary [...] advised to schedule follow-up appointment with [facility] at his earliest convenience. All questions have been answered and patient is in agreement with this plan. Torsten De Leon P.A.-C. 07/11/21 documented in this encounter Plan of Treatment Not on filedocumented as of this encounter Results (ABNORMAL) CBC without Differential (07/11/2021 10:53 AM CDT) [facility] gist Method Time Signature Hemoglobin 12.1 [...] Phon e Number [facility]- [address] [place] [address] [facility] [place] [address] System in [place] [address] (ABNORMAL) Basic Metabolic Panel [...] >=60 mL/min/BSA 07/11/2021 2:50 PM CDT [facility] [place] Comment: ----ADDITIONAL INFORMATION---- Estimated GFR calculated using the 2009 CKD_EPI creatinine equation. eGFR Non-Black/ 36 (L) >=60 mL/min/BSA 07/11/2021 2:50 PM CDT [facility] [place] Comment: ----ADDITIONAL [...] Phon e Number [facility]- [address] [place] [address] [place] [address] System in [place] [address] (ABNORMAL) Hemoglobin A1c (07/11/2021 10:53 [...] Phon e Number [facility]- [address] [place] [address] [facility] [place] [address] System in [place] [address] [facility] DX Chest AP [...] documented as of this encounter Care Teams Category Specialist Relationship Specialty Start Date End Date Shayla Alford D.O. PCP - General Internal Medicine 05/22/20 [address] [place] [phone] documented as of this encounter
--- OUTSIDE RECORDS SUMMARY | 2022-05-28 07:08 | XMS_ITS | Encounter Summary ---
:1945 Author Organization [facility] Address [address] [place] [address] Care Team Providers Name Role Phone Shayla Alford D.O. Primary Care Provider [phone] Encounter Details Date Type Department Care Team [...] do you attend mormonism or Never 2021 restorationist services? Do you [...] have completed or the highest Martin, MEd, BATTERY TECHNICIAN, CAYDEN) degree you have received? Sex [...] as of this encounter Care Teams Fur Dyer Relationship Specialty Start Date End Date Shayla Alford D.O. PCP - General Internal Medicine 05/22/200 [address] [place] [address] documented as of this encounter
--- OUTSIDE RECORDS SUMMARY | 2022-05-28 07:08 | XMS_ITS | Encounter Summary ---
:1945 Author Organization [facility] Address [address] [place] [address] Care Team Providers Name Role Phone Shayla Alford D.O. Primary Care Provider [phone] Reason for Visit Reason Onset Date Comments Complex Care Coordination 07/29/2021June Esha santillan Encounter Details Date Type Department Care Team Description 07/29/2021 Remote Monitoring Remote Patient LesterSushma Complex Care Monitoring [address] [facility] Coordination (June [facility] [address] [place], [place] Billing ) [address] [facility] [address] [place], [place] [phone] (Work) Social History Tobacco Use Types Packs/Day [...] do you attend methodist or Never 2021 mu-ism services? Do you [...] completed or the highest Martin, MEd, PHOTOGRAPHIC LABORATORY TECHNICIAN, CAYDEN) degree you have received? [...] documented as of this encounter Care Teams Principal Database Developer Relationship Specialty Start Date End Date Shayla Alford D.O. PCP - General Internal Medicine 05/22/[address] [address] documented as of this encounter
--- OUTSIDE RECORDS SUMMARY | 2022-05-28 07:08 | XMS_ITS | Encounter Summary ---
:1945 Author Organization [facility] Address [address] [place] [address] Care Team Providers Name Role Phone Shayla Alford D.O. Primary Care Provider [phone] Reason for Visit Reason Comments SURG DATE Needs pre-op note! Encounter Details Date Type Department Care Team Description 07/02/2021 Clinical Communication Department of Dolores, SURG DATE; Needs Urology in Pato Mims pre-op note! [place], [place] [address] [place] [phone] Social History Tobacco Use Types Packs/Day [...] have completed or the highest Martin, MEd, PERFORMANCE ARCHITECT, CAYDEN) degree you have received? Sex [...] 07/09/2021 2:[address] Reid, [facility] is looking for your notes on the [...] as of this encounter Care Teams Air Traffic Instructor Relationship Specialty Start Date End Date Shayla Alford D.O. PCP - General Internal Medicine 05/22/20 [address] [place] [address] documented as of this encounter
--- OUTSIDE RECORDS SUMMARY | 2022-05-28 07:08 | XMS_ITS | Encounter Summary ---
:1945 Author Organization [facility] Address [address] [place] [address] Care Team Providers Name Role Phone Shayla Alford D.O. 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 Encounter Details Date Type Department Care Team Description 07/05/2021 Remote Monitoring Remote Patient Sayra Rogers Grad uation (Patient Monitoring R, B.S. has graduated from [place] [address] [address] Remote [address] [place] [address] (Work) Monitoring program.) [place] [address] Social History Tobacco Use Types Packs/Day Years [...] do you attend episcopalian or Never 2021 congregational services? Do you [...] as of this encounter Care Teams House Visitor Relationship Specialty Start Date End Date Shayla Alford D.O. PCP - General Internal Medicine 05/22/20 [address] [place] [address] documented as of this encounter
--- OUTSIDE RECORDS SUMMARY | 2022-05-28 07:08 | XMS_ITS | Encounter Summary ---
:1945 Author Organization [facility] Address [address] [place] [address] Care Team Providers Name Role Phone Shayla Alford D.O. Primary Care Provider [phone] Reason for Visit Reason Onset Date Comments Hypertension 07/05/2021 Graduation 07/05/2021 Encounter Details Date Type Department Care Team Description 07/05/2021 Remote Monitoring Remote Patient Kanwal Bernardo rtension; Monitoring L, M.S.N., R.N. Graduation [facility] [address] [place] [phone] Social History Tobacco Use Types Packs/Day Years [...] do you attend episcopalian or Never 2021 episcopalian services? Do you [...] have completed or the highest Martin, MEd, REJECTED ITEMS CLERK, CAYDEN) degree you have received? Sex [...] documented as of this encounter Care Teams E/M Engineer Relationship Specialty Start Date End Date Shayla Alford D.O. PCP - General Internal Medicine 05/22/[address] [phone] documented as of this encounter
--- OUTSIDE RECORDS SUMMARY | 2022-05-28 07:08 | XMS_ITS | Encounter Summary ---
:1945 Author Organization [facility] Address [address] [place] [address] Care Team Providers Name Role Phone Shayla Alford D.O. Primary Care Provider [phone] Encounter Details Date Type Department Care Team Description 07/02/2021 Hospital Encounter Department of Cirilo Bernal Neoplasm Of Laboratory Medicine Pato Mims Bladder Posterior in [place], [address] ([facility]) [address] [place] [phone] Social History Tobacco Use [...] do you attend mandaeism or Never 2021 druze services? Do you [...] have completed or the highest Martin, MEd, FILM OR VIDEOTAPE EDITOR, CAYDEN) degree you have received? Sex [...] a day. Use to [facility] scan Sofya sensor 5 [...] NEEDLE, DIABETIC Yani Fine 30 0 [facility] disposable needles. For use with Insulin Pens, 4 times daily SYRINGE-NEEDLE,INSULIN,0 0 .5 ML (INSULIN SYRINGE [facility]) budesonide-formoteroL Inhale 2 puffs daily 0 1010/201911/19/2021 [...] >=60 mL/min/BSA 07/02/2021 11:17 AM CDT [facility] [place] Comment: ----ADDITIONAL INFORMATION---- Estimated GFR calculated using the 2009 CKD_EPI creatinine equation. Specimen Anatomical Collection Method Collection Time Receive d Time (Source) Location / / Volume Laterality Blood (Blood, 07/02/2021 10:24 07/02/2021 Venous) AM CDT 10:25 AM CDT Prasanna Bernal M.D. 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 PCP - General Internal Medicine 05/22/202199 [facility] [place] [address] documented as of this encounter
--- OUTSIDE RECORDS SUMMARY | 2022-05-28 07:08 | XMS_ITS | Encounter Summary ---
:1945 Author Organization [facility] Address [address] [place] [address] Care Team Providers Name Role Phone Shayla Alford D.O. Primary Care Provider [phone] Encounter Details Date Type Department Care Team Description 07/09/2021 Clinical Communication Department of Internal Andrei Dejesus Medicine in [place], [place], [place] [address] [place] [phone] Social History Tobacco Use Types Packs/Day Years [...] do you attend baptist or Never 2021 latter-day services? Do you [...] have completed or the highest Martin, MEd, SQL ETL DEVELOPER, CAYDEN) degree you have received? Sex [...] them and we will fax them to [phone], as not sure why they are not [...] to call in two prescriptions to the [facility]. They are for Jardiance 25mg [...] documented as of this encounter Care Teams Hat Renovator Relationship Specialty Start Date End Date Shayla Alford D.O. PCP - General Internal Medicine 05/22/[address] [address] documented as of this encounter
--- OUTSIDE RECORDS SUMMARY | 2022-05-28 07:08 | XMS_ITS | Encounter Summary ---
:1945 Author Organization [facility] Address [address] [place] [address] Care Team Providers Name Role Phone Shayla Alford D.O. Primary Care Provider [phone] Encounter Details Date Type Department Care Team Description 07/11/2021 Hospital Encounter Department of Bandar De Leon ([facility]); Laboratory Medicine S, P.A.-C. Preoperative Exam in [facility] [address] [place], [place] [address] [address] [place], [place] [phone] (Work) [phone] Social History Tobacco Use Types Packs/Day Years [...] do you attend samaritan or Never 2021 jainism services? Do you [...] have completed or the highest Martin, MEd, FAST FOOD CASHIER, CAYDEN) degree you have received? Sex Assigned [...] SOFYA) times a day. Use to [facility] scan Sofya sensor 5 times [...] CBC without Differential (07/11/2021 10:53 AM CDT) [facility] gist Method Time Signature Hemoglobin 12.1 [...] [facility]- [address] [place] [address] [facility] [place] [facility] [place] [address] System in [place] [address] (ABNORMAL) Basic Metabolic [...] >=60 mL/min/BSA 07/11/2021 2:50 PM CDT [facility] [place] Comment: ----ADDITIONAL INFORMATION---- Estimated GFR calculated using the 2009 CKD_EPI creatinine equation. eGFR Non-Black/ 36 (L) >=60 mL/min/BSA 07/11/2021 2:50 PM CDT [facility] [place] Comment: ----ADDITIONAL INFORMATION---- [...] e Number [facility]- [address] [place] [address] [place] [address] System in [place] [address] [facility] (ABNORMAL) Hemoglobin A1c (07/11/2021 10:53 AM [...] e Number [facility]- [address] [place] [address] [facility] [place] [address] System in [place] [address] [facility] documented in this encounter Visit Diagnoses Diagnosis Stroke (HCC) Preoperative Exam documented in this encounter Additional Health Concerns Assessment Noted Time PHQ-9 Depression Total Score: 18 04/28/2018 11:27 AM C DT documented as of this encounter Care Teams Science Specialist Relationship Specialty Start Date End Date Shayla Alford D.O. PCP - General Internal Medicine 05/22/[address] [place] [address] documented as of this encounter
--- OUTSIDE RECORDS SUMMARY | 2022-05-28 07:08 | XMS_ITS | Encounter Summary ---
:1945 Author Organization [facility] Address [address] [place] [address] Care Team Providers Name Role Phone Shayla Alford D.O. Primary Care Provider [phone] Encounter Details Date Type Department Care Team Description 07/12/2021 Orders Only Department of Urology in Prasanna Meng M.D. [place], [place] [address] [place] [phone] (Wo rk) Social History Tobacco [...] have completed or the highest Martin, MEd, CONTACT PRINTER DRY FILM, CAYDEN) degree you have received? Sex Assigned [...] documented as of this encounter Care Teams Grip Relationship Specialty Start Date End Date Shayla Alford D.O. PCP - General Internal Medicine 05/22/[address] [phone] documented as of this encounter
--- OUTSIDE RECORDS SUMMARY | 2022-05-28 07:08 | XMS_ITS | Encounter Summary ---
:1945 Author Organization [facility] Address [address] [place] [address] Care Team Providers Name Role Phone Shayla Alford D.O. Primary Care Provider Reason for Referral Outpatient (Routine) - Closed Specialty Diagnoses / Procedures Referred By Contact Refer anna To Contact Urology Prasanna Bernal M.D. 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 [facility] Procedures CT Urogram without and with IV Contrast [address] [place] [address] Referral ID Status Reason Start Date Expiration Date Visits Requ ested Visits Authorized [id number] Closed 07/02/2021 07/02/2022 1 1 Reason for Visit Outpatient (Routine) - Closed Specialty Diagnoses / Procedures Referred By Contact Refer red To Contact Diagnoses Personal History Of Malignant Neoplasm Of Bladder Prasanna Bernal M.D. [facility] Procedures Cystoscopy (specific provider) [address] [place] [address] Referral ID Status Reason Start Date Expiration Date Visits Requ ested Visits Authorized [id number] Closed 06/12/2020 06/12/2021 1 1 Encounter Details Date Type Department Care Team Description 07/02/2021 Procedure visit Department of Urology Prasanna Bernal, Malignant Neoplasm Of in [place] Bladder Posterior Wall [place] [address] ([facility]) [address] [place] [phone] Social History Tobacco Use Types Packs/Day Years [...] do you attend sabianism or Never 2021 islam services? Do you [...] completed or the highest Martin, MEd, BREAD AND PASTRY BAKER, CAYDEN) degree you have received? Sex Assigned [...] screening be ordered. He will need a local driver. He will need to be NPO. Electronically signed by: Prasanna Bernal M.D. 07/02/21 9:41 AM CDT documented in this encounter Plan of Treatment Scheduled Referrals Name Type Priority Associated Diagnoses Order S [facility] Urology office Outpatient Referral Routine Expect ed: visit (clinic) 07/23/2021 (Approximate), Expires: 07/02/2024 documented as of this encounter Results SARS Coronavirus-2 RNA, V Asymptomatic (07/15/2021 8:56 AM CDT) [facility] Method Time Signature SARS-CoV-2 Swab, 07/15/2021 [...] pe rformed using the Aptima SARS-CoV-2 assay ([employer] on the [employer] tem under emergency use authorization (EUA) by the U.S. Food and Drug Administ ration. Fact sheets for this EUA assay can be fo und at the following links: For Healthcare Providers: https://www.fd a.gov/media/325107/download For Patients: https://www.fda.gov/media/ 550937/download Specimen Anatomical Collection Method Collection Time Receive d Time (Source) Location / / Volume Laterality Varies 07/15/2021 8:56 AM 5:19 (Nasopharynx) CDT PM CDT Prasanna Bernal M.D. LAB MICROBIOLOGY - GENERAL O RDERABLES Performing Organization Address City/State/ZIP Code Phon e Number [facility]- [address] [place] [address] [place] [address] System [address] Urogram without and with IV [...] Number [facility]- [facility] [place] [address] [facility] [place] [address] System in [address] (ABNORMAL) Creatinine with Estimated GFR (07/02/2021 10:24 AM CDT) P athologist Signature Creatinine 1.51 (H) 0.74 - 1.35 07/02/2021 [facility] mg/dL 11:17 AM CDT Comment: Testing performed on serum eGFR-Black/ 51 (L) >=60 mL/min/BSA 12/2020 11:17 AM CDT [facility] Comment: ----ADDITIONAL INFORMATION---- Estimated GFR calculated using the 2009 CKD_EPI creatinine equation. eGFR Non-Black/ 44 (L) >=60 mL/min/BSA 07/02/2021 11:17 AM CDT [facility] Macedonian Comment: ----ADDITIONAL INFORMATION---- Estimated GFR calculated using the 2009 CKD_EPI creatinine equation. Specimen Anatomical Collection Method Collection Time Receive d Time (Source) Location / / Volume Laterality Blood (Blood, 07/02/2021 10:24 07/02/2021 Venous) AM CDT 10:25 AM CDT Prasanna Bernal M.D. 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 PCP - General Internal Medicine 05/22/[address] [phone] documented as of this encounter
--- OUTSIDE RECORDS SUMMARY | 2022-05-28 07:08 | XMS_ITS | Encounter Summary ---
:1945 Author Organization [facility] Address [address] [place] [address] Care Team Providers Name Role Phone Shayla Alford D.O. Primary Care Provider [phone] Encounter Details Date Type Department Care Team Description 07/15/2021 Lab Department of Prasanna Mcdonnell [facility] [address] ([facility] [place], [place] [address] [facility] [address] [place] [address] [phone] Social History Tobacco Use Types Packs/Day Years [...] do you attend buddhist or Never 2021 episcopal services? Do you [...] completed or the highest Martin, MEd, APPLICATION SYSTEMS ADMINISTRATOR, CAYDEN) degree you have received? Sex [...] RNA, V Asymptomatic (07/15/2021 8:56 AM CDT) [facility] Method Time Signature SARS-CoV-2 Swab, 07/15/2021 [...] pe rformed using the Aptima SARS-CoV-2 assay ([employer] on the [place] tem under emergency use authorization (EUA) by the U.S. Food and Drug Administ ten. Fact sheets for this EUA assay can be fo und at the following links: For Healthcare Providers: https://www.fd a.gov/media/275597/download For Patients: https://www.fda.gov/media/ 069356/download Specimen Anatomical Collection Method Collection Time Receive d Time (Source) Location / / Volume Laterality Varies 07/15/2021 8:56 AM 5:19 (Nasopharynx) CDT PM CDT Prasanna Bernal M.D. 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 PCP - General Internal Medicine 05/22/[address] [phone] documented as of this encounter
--- OUTSIDE RECORDS SUMMARY | 2022-05-28 07:08 | XMS_ITS | Encounter Summary ---
:1945 Author Organization [facility] Address [address] [place] [address] Care Team Providers Name Role Phone Shayla Alford D.O. Primary Care Provider [phone] Encounter Details Date Type Department Care Team Description 07/25/2021 Orders Only [facility] PCP [facility] Sa neno Espinal M.D. [address] [place], [place] [phone] (Wo rk) Social History [...] do you attend uatsdin or Never 2021 presybeterian services? Do you [...] have completed or the highest Martin, Sirena, TAIL WORKER, CAYDEN) degree you have received? Sex Assigned at Date Recorded Male 05/21/2018 2:34 PM CDT documented as of this encounter Plan of Treatment Not on filedocumented as of this encounter Visit Diagnoses Not on filedocumented in this encounter Additional Health Concerns Assessment Noted Time PHQ-9 Depression Total Score: 18 04/28/2018 11:27 AM C DT documented as of this encounter Care Teams Blacktop Paver Operator Relationship Specialty Start Date End Date Shayla Alford D.O. PCP - General Internal Medicine 05/22/[address] [phone] documented as of this encounter
--- OUTSIDE RECORDS SUMMARY | 2022-05-28 07:08 | XMS_ITS | Encounter Summary ---
:1945 Author Organization [facility] Address [address] [place] [address] Care Team Providers Name Role Phone Shayla Alford D.O. Primary Care Provider [phone] Encounter Details Date Type Department Care Team Description 07/11/2021 Hospital Encounter Department of Bandar De Leon Preop erative Exam; Radiology in S, P.A.-C. Chronic Obstructive Pulmonary Disease (H CC) [place], [place] [address] [place] [phone] Social History Tobacco Use [...] completed or the highest Martin, MEd, FISH NET MAKER, CAYDEN) degree you have received? Sex [...] PEN NEEDLE, DIABETIC Yani Fine 30 0 [facility] disposable needles. For use with Insulin Pens, 4 times daily SYRINGE-NEEDLE,INSULIN,0 0 .5 ML (INSULIN SYRINGE [facility]) traZODone (DESYREL) 100 Take 0.5 tablets (50 [...] documented as of this encounter Care Teams Underwriting Account Representative Relationship Specialty Start Date End Date Shayla Alford D.O. PCP - General Internal Medicine 05/22/[address] [phone] documented as of this encounter
--- OUTSIDE RECORDS SUMMARY | 2022-05-28 07:08 | XMS_ITS | Encounter Summary ---
:1945 Author Organization [facility] Address [address] [place] [address] Care Team Providers Name Role Phone Shayla Alford D.O. Primary Care Provider [phone] Encounter Details Date Type Department Care Team Description 07/10/2021 Orders Only Department of Internal Rocío Medicine in [place], [place], [place] [address] [place] [phone] (Wo rk) Social History Tobacco Use Types [...] have completed or the highest Martin, MEd, HOURLY SHIFT, CAYDEN) degree you have received? Sex Assigned at Date Recorded Male 05/21/2018 2:34 PM CDT documented as of this encounter Plan of Treatment Not on filedocumented as of this encounter Visit Diagnoses Not on filedocumented in this encounter Additional Health Concerns Assessment Noted Time PHQ-9 Depression Total Score: 18 04/28/2018 11:27 AM C DT documented as of this encounter Care Teams Tour Driver Relationship Specialty Start Date End Date Shayla Alford D.O. PCP - General Internal Medicine 05/22/[address] [phone] documented as of this encounter
--- OUTSIDE RECORDS SUMMARY | 2022-05-28 07:08 | XMS_ITS | Encounter Summary ---
:1945 Author Organization [facility] Address [address] [place] [address] Care Team Providers Name Role Phone Shayla Alford D.OMauro Primary Care Provider [phone] Encounter Details Date Type Department Care Team Description 07/30/2021 Hospital Encounter Department of Alexys Diabete s Mellitus Type 2 Hyperglycemia (HCC); Laboratory Medicine Shayla queen Hyperten sion Essential Primary in [place], [facility] [address] [place] [phone] Social History Tobacco Use Types Packs/Day [...] do you attend pentecostal or Never 2021 confucianist services? Do you [...] completed or the highest Martin, MEd, BUSINESS MANAGER, CAYDEN) degree you have received? Sex [...] PEN NEEDLE, DIABETIC Yani Fine 30 0 [facility] [place] disposable needles. For use with Insulin Pens, 4 times daily SYRINGE-NEEDLE,INSULIN,0 0 .5 ML (INSULIN SYRINGE [facility] [place]) traZODone (DESYREL) 100 Take 0.5 tablets (50 [...] eGFR-Black/Afri 36 (L) >=60 07/30/2021 [place] mL/min/BSA 10:24 AM CDT Comment: ----ADDITIONAL INFORMATION---- Estimated GFR calculated using the 2009 CKD_EPI creatinine equation. eGFR Non-Black/ 31 (L) >=60 mL/min/BSA 07/30/2021 10:24 AM CDT [facility] Indian Comment: ----ADDITIONAL INFORMATION---- Estimated GFR calculated using [...] Phon e Number [facility]- [address] [place] [address] [place] [address] System in [place] [address] [facility] (ABNORMAL) Hemoglobin A1c (07/30/2021 9:50 [...] Phon e Number [facility]- [address] [place] [address] [facility] [place] [address] System in [place] [address] documented in this encounter Visit Diagnoses Diagnosis Diabetes Mellitus Type 2 Hyperglycemia ( HCC) Hypertension Essential Primary documented in this encounter Additional Health Concerns Assessment Noted Time PHQ-9 Depression Total Score: 18 04/28/2018 11:27 AM C DT documented as of this encounter Care Teams Manager Metal Relationship Specialty Start Date End Date Shayla Alford D.O. PCP - General Internal Medicine 05/22/[address] [place] [address] documented as of this encounter
--- OUTSIDE RECORDS SUMMARY | 2022-05-28 07:08 | XMS_ITS | Encounter Summary ---
:1945 Author Organization [facility] Address [address] [place] [address] Care Team Providers Name Role Phone Shayla Alford D.O. 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 [facility] Procedures Cystoscopy (specific provider) [address] [address] Referral ID Status Reason Start Date Expiration Date Visits Requ ested Visits Authorized [id number] Closed 07/23/2021 07/23/2022 1 1 Reason for Visit Outpatient (Routine) - Closed Specialty Diagnoses / Procedures Referred By Contact Refer red To Contact Urology Prasanna Bernal M.D. [facility] Region [address] [place] [phone] Referral ID Status Reason Start Date Expiration Date Visits Requ ested Visits Authorized [id number] Closed 07/02/2021 07/02/2022 1 1 Encounter Details Date Type Department Care Team Description 07/23/2021 Office Visit Department of Urology Prasanna Bernal Mal ignant Neoplasm Of Bladder Lateral Wall (HCC) (Primary Dx); [place] Malignant Neoplasm Of Bladder Posterior Wall [...] do you attend voodoo or Never 2021 taoist services? Do you [...] have completed or the highest Martin, MEd, DUPLICATING MACHINE OPERATOR, [place]) degree you have received? [...] of Bladder Cancer, Urine (10/18/2021 10:20 AM AMUSEMENT EQUIPMENT OPERATOR) Component Value Ref Test Analysis Performed Pathologis t Range Method Time At Signature Result Summary Negative 11/05/2021 DTL 5:07 PM AMUSEMENT EQUIPMENT OPERATOR Karyotype No evidence of 11/05/2021 DTL urothelial 5:07 PM AMUSEMENT EQUIPMENT OPERATOR carcinoma. Reason for Evaluate for 11/05/2021 DT referral urothelial 5:07 PM AMUSEMENT EQUIPMENT OPERATOR carcinoma. Specimen Varies 11/05/2021 DTL 5:07 PM AMUSEMENT EQUIPMENT OPERATOR Source Voided 11/05/2021 DTL 5:07 PM AMUSEMENT EQUIPMENT OPERATOR Released By Dhiraj Porras, 11/05/2021 DT Pato 5:07 PM AMUSEMENT EQUIPMENT OPERATOR Interpretation This test result does not rule out the possibility t hat the 11/05/2021 DTL patient may have a low-grade (i.e. grade 1 or 2) 5:07 PM AMUSEMENT EQUIPMENT OPERATOR non-invasive papillary urothelial carcinoma. Some patients with low grade non-invasive papillary urothelial carcinoma do not have abnormalities with this FISH test. Comment: ----ADDITIONAL INFORMATION---- Fluorescence in situ hybridization (FISH ) with centromere probes for chromosomes 3 (D3Z1), 7(D7Z1), 17(D17Z1) , and a locus specific probe for 9p21 ([employer] [place], [place]) . This test has been modified from the man ufacturer's instructions. Its performance characteristics were determi darnell by [facility] in a manner consistent with CLIA requirements. This test has not been cleared or approved by the U.S. Food and Drug Administration . Specimen Anatomical Collection Method Collection Time Receive d Time (Source) Location / / Volume Laterality Varies (Urine, 10/18/2021 10:20 2 Voided) AM AMUSEMENT EQUIPMENT OPERATOR 11:31 AM AMUSEMENT EQUIPMENT OPERATOR Narrative This result has an attachment that is no t available. Prasanna Bernal M.D. LAB GENETIC TESTING Performing Organization Address City/State/ZIP Code Phon e Number [facility] - [address] [place], [place] [address] [place] [address] [facility] [address] Cytology Non-RIGGING LOFT MECHANIC (Scheduled) (10/18/2021 10:20 AM AMUSEMENT EQUIPMENT OPERATOR) Component Value Ref Test Analysis Performed At [facility] gist Range Method Time Signature 10/19/2021 HKCY 9:33 AM AMUSEMENT EQUIPMENT OPERATOR Fixative 50% alcohol 10/19/2021 [facility] 9:33 AM AMUSEMENT EQUIPMENT OPERATOR Report Brady Goodrich MD 10/19/2021 HK electronically 9:33 AM AMUSEMENT EQUIPMENT OPERATOR signed by I verify that I have examined all relevant slides/materials for the specimen(s) and rendered or confirmed the diagnosis. Gross Description Received 50 10/19/2021 [facility] ml of yellow 9:33 AM AMUSEMENT EQUIPMENT OPERATOR alcohol fixed fluid. Collection clean void 10/19/2021 [facility] Procedure 9:33 AM AMUSEMENT EQUIPMENT OPERATOR Source A. Urine, 10/19/2021 [facility] Clean Catch, 9:33 AM AMUSEMENT EQUIPMENT OPERATOR voided Clinical History unknown 10/19/2021 [facility] 9:33 AM AMUSEMENT EQUIPMENT OPERATOR Interpretation A. Urine, Clean Catch, voided (cytospin): Negative f or 10/19/2021 [facility] High-Grade Urothelial Carcinoma. 9:33 AM AMUSEMENT EQUIPMENT OPERATOR Specimen Anatomical Collection Method Collection Time Receive d Time (Source) Location / / Volume Laterality Varies (Urine, 10/18/2021 10:20 2 2:04 Clean Catch) AM AMUSEMENT EQUIPMENT OPERATOR PM AMUSEMENT EQUIPMENT OPERATOR Narrative This result has an attachment that is no t available. Prasanna Bernal M.D. LAB SURG PATH ORDERABLES Performing Organization Address [facility] Phon e Number [address] [address] [facility] [facility] [address] Cyt[facility] [address] [place] [address] (ABNORMAL) Bacterial Culture, Aerobic + Susc, Urine (09/17/2021 9:01 AM AMUSEMENT EQUIPMENT OPERATOR) Analysis Performed At Patho logist Time Signature Urine Culture Mixed 09/18/2021 [facility] surekha. (A) 9:23 AM AMUSEMENT EQUIPMENT OPERATOR Specimen Anatomical Collection Method Collection Time Receive d Time (Source) Location / / Volume Laterality Urine (Urine, 09/17/2021 9:01 AM 09/17/20 2:06 Midstream) AMUSEMENT EQUIPMENT OPERATOR PM AMUSEMENT EQUIPMENT OPERATOR Comment: Specimen Source Site: Urine Prasanna Bernal M.D. LAB MICROBIOLOGY - GENERAL O RDERABLES Performing Organization Address City/[facility] Phon e Number [facility]- [address] [place] [address] [place] [address] (ABNORMAL) Urinalysis with Microscopic: Urine, Midstream (09/17/2021 9:01 AM AMUSEMENT EQUIPMENT OPERATOR) Analysis Performed At Patho logist Time Signature Source Urine, Urine, 09/17/2021 FB60 Midstream 9:02 AM AMUSEMENT EQUIPMENT OPERATOR Clarity Clear Clear 09/17/2021 FB60 9:10 AM AMUSEMENT EQUIPMENT OPERATOR Color Yellow 09/17/2021 FB60 9:10 AM AMUSEMENT EQUIPMENT OPERATOR Comment: ----REFERENCE VALUE---- Colorless Yellow Mitra Blood Moderate (A) Negative 09/17/2021 9:10 AM AMUSEMENT EQUIPMENT OPERATOR FB60 Nitrite Negative Negative 09/17/2021 9:10 AM AMUSEMENT EQUIPMENT OPERATOR FB60 Leukocyte Esterase Negative Negative 09/17/2021 9:10 AM CS T FB60 Protein 100 (A) mg/dL 09/17/2021 9:10 AM AMUSEMENT EQUIPMENT OPERATOR FB60 Comment: ----REFERENCE VALUE---- Negative Trace Glucose >=1000 (A) Negative mg/dL 09/17/2021 9:10 AM AMUSEMENT EQUIPMENT OPERATOR F B60 Ketones, QI(U) Negative Negative mg/dL 09/17/2021 9:[address] FB60 Bilirubin Negative Negative 09/17/2021 9:10 AM AMUSEMENT EQUIPMENT OPERATOR FB60 pH 5.5 5.0 - 8.0 09/17/2021 9:10 AM AMUSEMENT EQUIPMENT OPERATOR FB60 Specific Outlook 1.015 1.001 - 1.035 09/17/2021 9:10 AM AMUSEMENT EQUIPMENT OPERATOR FB60 Urobilinogen 0.2 0.2 - 1.0 mg/dL 09/17/2021 9:10 AM CS T FB60 White Blood Cells 4-10 (A) /hpf 09/17/2021 9:25 AM AMUSEMENT EQUIPMENT OPERATOR FB60 Comment: ----REFERENCE VALUE---- Males: 0-3 Females: 0-10 Unknown: 0-10 Red Blood Cells 3-10 (A) 0 - 2 /hpf 09/17/2021 9:25 AM AMUSEMENT EQUIPMENT OPERATOR FB60 Dysmorphic Red Blood Cells <=25 <=25 % 09/17/2021 9: 25 AM AMUSEMENT EQUIPMENT OPERATOR FB60 Specimen Anatomical Collection Method Collection Time Receive d Time (Source) Location / / Volume Laterality Urine (Urine, 09/17/2021 9:01 AM 09/17/20 9:01 Midstream) AMUSEMENT EQUIPMENT OPERATOR AM AMUSEMENT EQUIPMENT OPERATOR Prasanna Bernal M.D. LAB URINE ORDERABLES Performing Organization Address City/State/ZIP Code Phon e Number [facility]- [address] [place] [address] [place] [facility] [address] [place] [address] System in [place] [address] (ABNORMAL) Bacterial Culture, Aerobic + Susc, Urine (09/10/2021 8:27 AM AMUSEMENT EQUIPMENT OPERATOR) Analysis Performed At Path logis Time Signature Urine Culture Mixed 09/11/2021 [facility] surekha. (A) 1:04 PM AMUSEMENT EQUIPMENT OPERATOR Specimen Anatomical Collection Method Collection Time Receive d Time (Source) Location / / Volume Laterality Urine (Urine, 09/10/2021 8:27 AM 09/10/20 3:35 Midstream) AMUSEMENT EQUIPMENT OPERATOR PM AMUSEMENT EQUIPMENT OPERATOR Comment: Specimen Source Site: Urine Mid stream Prasanna Bernal M.D. LAB MICROBIOLOGY - GENERAL O RDERABLES Performing Organization Address City/State/ZIP Code Phon e Number [facility]- [address] [place] [address] [place] [address] (ABNORMAL) Urinalysis with Microscopic: Urine, Midstream (09/10/2021 8:27 AM AMUSEMENT EQUIPMENT OPERATOR) Analysis Performed At [facility] Time Signature Source Urine, Urine, 09/10/2021 FB60 Midstream 8:44 AM AMUSEMENT EQUIPMENT OPERATOR Clarity Clear Clear 09/10/2021 FB60 8:58 AM AMUSEMENT EQUIPMENT OPERATOR Color Yellow 09/10/2021 FB60 8:58 AM AMUSEMENT EQUIPMENT OPERATOR Comment: ----REFERENCE VALUE---- Colorless Yellow Mitra Blood Small (A) Negative 09/10/2021 8:58 AM AMUSEMENT EQUIPMENT OPERATOR FB60 Nitrite Negative Negative 09/10/2021 8:58 AM AMUSEMENT EQUIPMENT OPERATOR FB60 Leukocyte Esterase Trace (A) Negative 09/10/2021 8:58 AM CS T FB60 Protein Negative mg/dL 09/10/2021 8:58 AM AMUSEMENT EQUIPMENT OPERATOR FB60 Comment: ----REFERENCE VALUE---- Negative Trace Glucose >=1000 (A) Negative mg/dL 09/10/2021 8:58 AM AMUSEMENT EQUIPMENT OPERATOR F B60 Ketones, QI(U) Negative Negative mg/dL 09/10/2021 8:[address] FB60 Bilirubin Negative Negative 09/10/2021 8:58 AM AMUSEMENT EQUIPMENT OPERATOR FB60 pH 5.5 5.0 - 8.0 09/10/2021 8:58 AM AMUSEMENT EQUIPMENT OPERATOR FB60 Specific Outlook 1.015 1.001 - 1.035 09/10/2021 8:58 AM AMUSEMENT EQUIPMENT OPERATOR FB60 Urobilinogen 0.2 0.2 - 1.0 mg/dL 09/10/2021 8:58 AM CS T FB60 White Blood Cells 4-10 (A) /hpf 09/10/2021 9:00 AM AMUSEMENT EQUIPMENT OPERATOR FB60 Comment: ----REFERENCE VALUE---- Males: 0-3 Females: 0-10 Unknown: 0-10 Red Blood Cells None Seen 0 - 2 /hpf 09/10/2021 9:00 AM AMUSEMENT EQUIPMENT OPERATOR FB60 Specimen Anatomical Collection Method Collection Time Receive d Time (Source) Location / / Volume Laterality Urine (Urine, 09/10/2021 8:27 AM 09/10/20 21 8:44 Midstream) AMUSEMENT EQUIPMENT OPERATOR AM AMUSEMENT EQUIPMENT OPERATOR Prasanna Bernal M.D. LAB URINE ORDERABLES Performing Organization Address City/[facility] Phon e Number [address] [place], [place] [phone] [place] [address] LAB [address] [place] [address] (ABNORMAL) Bacterial Culture, Aerobic + Susc, Urine (09/03/2021 8:34 AM AMUSEMENT EQUIPMENT OPERATOR) Analysis Performed At Patho logist Time Signature Urine Culture Mixed 09/04/2021 TO surekha. (A) 1:23 PM AMUSEMENT EQUIPMENT OPERATOR Specimen Anatomical Collection Method Collection Time Receive d Time (Source) Location / / Volume Laterality Urine (Urine, 09/03/2021 8:34 AM 09/03/20 21 2:19 Midstream) AMUSEMENT EQUIPMENT OPERATOR PM AMUSEMENT EQUIPMENT OPERATOR Comment: Specimen Source Site: Urine Prasanna Bernal M.D. LAB MICROBIOLOGY - GENERAL O RDERABLES Performing Organization Address City/[facility] Phon e Number [facility]- [address] [place] [address] [place] [address] (ABNORMAL) Urinalysis with Microscopic: Urine, Midstream (09/03/2021 8:34 AM AMUSEMENT EQUIPMENT OPERATOR) Analysis Performed At Patho logist Time Signature Source Urine, Urine, 09/03/2021 FB60 Midstream 8:49 AM AMUSEMENT EQUIPMENT OPERATOR Clarity Clear Clear 09/03/2021 FB60 8:57 AM AMUSEMENT EQUIPMENT OPERATOR Color Yellow 09/03/2021 FB60 8:57 AM AMUSEMENT EQUIPMENT OPERATOR Comment: ----REFERENCE VALUE---- Colorless Yellow Mitra Blood Trace (A) Negative 09/03/2021 8:57 AM AMUSEMENT EQUIPMENT OPERATOR FB60 Nitrite Negative Negative 09/03/2021 8:57 AM AMUSEMENT EQUIPMENT OPERATOR FB60 Leukocyte Esterase Negative Negative 09/03/2021 8:57 AM CS T FB60 Protein Negative mg/dL 09/03/2021 8:57 AM AMUSEMENT EQUIPMENT OPERATOR FB60 Comment: ----REFERENCE VALUE---- Negative Trace Glucose >=1000 (A) Negative mg/dL 09/03/2021 8:57 AM AMUSEMENT EQUIPMENT OPERATOR F B60 Ketones, QI(U) Negative Negative mg/dL 09/03/2021 8:[address] FB60 Bilirubin Negative Negative 09/03/2021 8:57 AM AMUSEMENT EQUIPMENT OPERATOR FB60 pH 5.5 5.0 - 8.0 09/03/2021 8:57 AM AMUSEMENT EQUIPMENT OPERATOR FB60 Specific Outlook 1.010 1.001 - 1.035 09/03/2021 8:57 AM AMUSEMENT EQUIPMENT OPERATOR FB60 Urobilinogen 0.2 0.2 - 1.0 mg/dL 09/03/2021 8:57 AM CS T FB60 White Blood Cells 4-10 (A) /hpf 09/03/2021 9:13 AM AMUSEMENT EQUIPMENT OPERATOR FB60 Comment: ----REFERENCE VALUE---- Males: 0-3 Females: 0-10 Unknown: 0-10 Red Blood Cells Occ-2 0 - 2 /hpf 09/03/2021 9:13 AM AMUSEMENT EQUIPMENT OPERATOR FB60 Specimen Anatomical Collection Method Collection Time Receive d Time (Source) Location / / Volume Laterality Urine (Urine, 09/03/2021 8:34 AM 09/03/20 21 8:49 Midstream) AMUSEMENT EQUIPMENT OPERATOR AM AMUSEMENT EQUIPMENT OPERATOR Prasanna Bernal M.D. LAB URINE ORDERABLES Performing Organization Address City/State/ZIP Code Phon e Number [facility]- [address] [place] [address] [place] [address] [place] [address] System in [place] [address] (ABNORMAL) Bacterial Culture, Aerobic + Susc, Urine (08/27/2021 8:25 AM AMUSEMENT EQUIPMENT OPERATOR) Analysis Performed At Patho logist Time Signature Urine Culture Mixed 08/28/2021 [facility] surekha. (A) 10:47 AM AMUSEMENT EQUIPMENT OPERATOR Specimen Anatomical Collection Method Collection Time Receive d Time (Source) Location / / Volume Laterality Urine (Urine, 08/27/2021 8:25 AM 08/27/20 3:01 Midstream) AMUSEMENT EQUIPMENT OPERATOR PM AMUSEMENT EQUIPMENT OPERATOR Comment: Specimen Source Site: Urine Prasanna Bernal M.D. LAB MICROBIOLOGY - GENERAL O RDERABLES Performing Organization Address City/State/ZIP Code Phon e Number [facility]- [address] [place] [address] [place] [address] System in [place] [address] [place] [address] (ABNORMAL) Urinalysis with Microscopic: Urine, Midstream (08/27/2021 12:04 AM AMUSEMENT EQUIPMENT OPERATOR) Analysis Performed At Patho logist Time Signature Source Urine, Urine, 08/27/2021 FB60 Midstream 8:49 AM AMUSEMENT EQUIPMENT OPERATOR Clarity Clear Clear 08/27/2021 FB60 9:13 AM AMUSEMENT EQUIPMENT OPERATOR Color Yellow 08/27/2021 FB60 9:13 AM AMUSEMENT EQUIPMENT OPERATOR Comment: ----REFERENCE VALUE---- Colorless Yellow Mitra Blood Trace (A) Negative 08/27/2021 9:13 AM AMUSEMENT EQUIPMENT OPERATOR FB60 Nitrite Negative Negative 08/27/2021 9:13 AM AMUSEMENT EQUIPMENT OPERATOR FB60 Leukocyte Esterase Small (A) Negative 08/27/2021 9:13 AM CS T FB60 Protein 30 (A) mg/dL 08/27/2021 9:13 AM AMUSEMENT EQUIPMENT OPERATOR FB60 Comment: ----REFERENCE VALUE---- Negative Trace Glucose >=1000 (A) Negative mg/dL 08/27/2021 9:13 AM AMUSEMENT EQUIPMENT OPERATOR F B60 Ketones, QI(U) Negative Negative mg/dL 08/27/2021 9:[address] FB60 Bilirubin Negative Negative 08/27/2021 9:13 AM AMUSEMENT EQUIPMENT OPERATOR FB60 pH 5.5 5.0 - 8.0 08/27/2021 9:13 AM AMUSEMENT EQUIPMENT OPERATOR FB60 Specific Outlook 1.015 1.001 - 1.035 08/27/2021 9:13 AM AMUSEMENT EQUIPMENT OPERATOR FB60 Urobilinogen 0.2 0.2 - 1.0 mg/dL 08/27/2021 9:13 AM CS T FB60 White Blood Cells 4-10 (A) /hpf 08/27/2021 9:13 AM AMUSEMENT EQUIPMENT OPERATOR FB60 Comment: ----REFERENCE VALUE---- Males: 0-3 Females: 0-10 Unknown: 0-10 Red Blood Cells Occ-2 0 - 2 /hpf 08/27/2021 9:13 AM AMUSEMENT EQUIPMENT OPERATOR FB60 Squamous Cells 4-10 /hpf 08/27/2021 9:13 AM AMUSEMENT EQUIPMENT OPERATOR FB 60 Specimen Anatomical Collection Method Collection Time Receive d Time (Source) Location / / Volume Laterality Urine (Urine, 08/27/2021 12:04 08/27/2021 8:49 Midstream) AM AMUSEMENT EQUIPMENT OPERATOR AM AMUSEMENT EQUIPMENT OPERATOR Prasanna Bernal M.D. LAB URINE ORDERABLES Performing Organization Address [facility] Phon e Number [address] [place] [address] [facility] [address] [place] [address] [address] (ABNORMAL) Bacterial Culture, Aerobic + Susc, Urine (08/20/2021 8:19 AM AMUSEMENT EQUIPMENT OPERATOR) Analysis Performed At Patho logist Time Signature Urine Culture Mixed 08/21/2021 [facility] surekha. (A) 10:32 AM AMUSEMENT EQUIPMENT OPERATOR Specimen Anatomical Collection Method Collection Time Receive d Time (Source) Location / / Volume Laterality Urine (Urine, 08/20/2021 8:19 AM 08/20/20 2:13 Midstream) AMUSEMENT EQUIPMENT OPERATOR PM AMUSEMENT EQUIPMENT OPERATOR Comment: Specimen Source Site: Urine Prasanna Bernal M.D. LAB MICROBIOLOGY - GENERAL O RDERABLES Performing Organization Address City/[facility] Phon e Number [address] [address] [place] [address] (ABNORMAL) Urinalysis with Microscopic: Urine, Midstream (08/20/2021 8:19 AM AMUSEMENT EQUIPMENT OPERATOR) Analysis Performed At Patho logist Time Signature Source Urine, Urine, 08/20/2021 FB60 Midstream 8:47 AM AMUSEMENT EQUIPMENT OPERATOR Clarity Clear Clear 08/20/2021 FB60 9:04 AM AMUSEMENT EQUIPMENT OPERATOR Color Yellow 08/20/2021 FB60 9:04 AM AMUSEMENT EQUIPMENT OPERATOR Comment: ----REFERENCE VALUE---- Colorless Yellow Mitra Blood Small (A) Negative 08/20/2021 9:04 AM AMUSEMENT EQUIPMENT OPERATOR FB60 Nitrite Negative Negative 08/20/2021 9:04 AM AMUSEMENT EQUIPMENT OPERATOR FB60 Leukocyte Esterase Negative Negative 08/20/2021 9:04 AM CS T FB60 Protein Negative mg/dL 08/20/2021 9:04 AM AMUSEMENT EQUIPMENT OPERATOR FB60 Comment: ----REFERENCE VALUE---- Negative Trace Glucose >=1000 (A) Negative mg/dL 08/20/2021 9:04 AM AMUSEMENT EQUIPMENT OPERATOR F B60 Ketones, QI(U) Negative Negative mg/dL 08/20/2021 9:[address] FB60 Bilirubin Negative Negative 08/20/2021 9:04 AM AMUSEMENT EQUIPMENT OPERATOR FB60 pH 5.5 5.0 - 8.0 08/20/2021 9:04 AM AMUSEMENT EQUIPMENT OPERATOR FB60 Specific Outlook 1.010 1.001 - 1.035 08/20/2021 9:04 AM AMUSEMENT EQUIPMENT OPERATOR FB60 Urobilinogen 0.2 0.2 - 1.0 mg/dL 08/20/2021 9:04 AM CS T FB60 White Blood Cells 11-20 (A) /hpf 08/20/2021 9:04 AM AMUSEMENT EQUIPMENT OPERATOR FB60 Comment: ----REFERENCE VALUE---- Males: 0-3 Females: 0-10 Unknown: 0-10 Red Blood Cells Occ-2 0 - 2 /hpf 08/20/2021 9:04 AM AMUSEMENT EQUIPMENT OPERATOR FB60 Dysmorphic Red Blood Cells <=25 <=25 % 08/20/2021 9: 04 AM AMUSEMENT EQUIPMENT OPERATOR FB60 Squamous Cells Occ-3 /hpf 08/20/2021 9:04 AM AMUSEMENT EQUIPMENT OPERATOR FB 60 Specimen Anatomical Collection Method Collection Time Receive d Time (Source) Location / / Volume Laterality Urine (Urine, 08/20/2021 8:19 AM 08/20/20 8:47 Midstream) AMUSEMENT EQUIPMENT OPERATOR AM AMUSEMENT EQUIPMENT OPERATOR Prasanna Bernal M.D. LAB URINE ORDERABLES Performing Organization Address City/State/ZIP Code Phon e Number [facility]- [address] [place] [address] [facility] [address] [place] [address] System in [place] [address] (ABNORMAL) Bacterial Culture, Aerobic + Susc, Urine (08/13/2021 8:03 AM AMUSEMENT EQUIPMENT OPERATOR) Analysis Performed At Patho logist Time Signature Urine Culture Mixed 08/14/2021 [facility] surekha. (A) 9:53 AM AMUSEMENT EQUIPMENT OPERATOR Specimen Anatomical Collection Method Collection Time Receive d Time (Source) Location / / Volume Laterality Urine (Urine, 08/13/2021 8:03 AM 08/13/20 21 2:11 Midstream) AMUSEMENT EQUIPMENT OPERATOR PM AMUSEMENT EQUIPMENT OPERATOR Comment: Specimen Source Site: Urine Prasanna Bernal M.D. LAB MICROBIOLOGY - GENERAL O RDERABLES Performing Organization Address City/State/ZIP Code Phon e Number [facility]- [address] [place] [address] [place] [address] System in [place] [address] [place] [address] (ABNORMAL) Urinalysis with Microscopic: Urine, Midstream (08/13/2021 8:03 AM AMUSEMENT EQUIPMENT OPERATOR) Analysis Performed At Patho logist Time Signature Source Urine, Urine, 08/13/2021 FB60 Midstream 8:31 AM AMUSEMENT EQUIPMENT OPERATOR Clarity Clear Clear 08/13/2021 FB60 8:57 AM AMUSEMENT EQUIPMENT OPERATOR Color Yellow 08/13/2021 FB60 8:57 AM AMUSEMENT EQUIPMENT OPERATOR Comment: ----REFERENCE VALUE---- Colorless Yellow Mitra Blood Small (A) Negative 08/13/2021 8:57 AM AMUSEMENT EQUIPMENT OPERATOR FB60 Nitrite Negative Negative 08/13/2021 8:57 AM AMUSEMENT EQUIPMENT OPERATOR FB60 Leukocyte Esterase Trace (A) Negative 08/13/2021 8:57 AM CS T FB60 Protein Trace mg/dL 08/13/2021 8:57 AM AMUSEMENT EQUIPMENT OPERATOR FB60 Comment: ----REFERENCE VALUE---- Negative Trace Glucose >=1000 (A) Negative mg/dL 08/13/2021 8:57 AM AMUSEMENT EQUIPMENT OPERATOR F B60 Ketones, QI(U) Negative Negative mg/dL 08/13/2021 8:[address] FB60 Bilirubin Negative Negative 08/13/2021 8:57 AM AMUSEMENT EQUIPMENT OPERATOR FB60 pH 5.5 5.0 - 8.0 08/13/2021 8:57 AM AMUSEMENT EQUIPMENT OPERATOR FB60 Specific Outlook 1.015 1.001 - 1.035 08/13/2021 8:57 AM AMUSEMENT EQUIPMENT OPERATOR FB60 Urobilinogen 0.2 0.2 - 1.0 mg/dL 08/13/2021 8:57 AM CS T FB60 White Blood Cells Occ-3 /hpf 08/13/2021 8:57 AM AMUSEMENT EQUIPMENT OPERATOR FB60 Comment: ----REFERENCE VALUE---- Males: 0-3 Females: 0-10 Unknown: 0-10 Red Blood Cells None Seen 0 - 2 /hpf 08/13/2021 8:57 AM AMUSEMENT EQUIPMENT OPERATOR FB60 Squamous Cells Occ-3 /hpf 08/13/2021 8:57 AM AMUSEMENT EQUIPMENT OPERATOR FB 60 Specimen Anatomical Collection Method Collection Time Receive d Time (Source) Location / / Volume Laterality Urine (Urine, 08/13/2021 8:03 AM 08/13/20 21 8:31 Midstream) AMUSEMENT EQUIPMENT OPERATOR AM AMUSEMENT EQUIPMENT OPERATOR Prasanna Bernal M.D. 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 PCP - General Internal Medicine 05/22/[address] [place] [phone] documented as of this encounter
--- OUTSIDE RECORDS SUMMARY | 2022-05-28 07:08 | XMS_ITS | Encounter Summary ---
:1945 Author Organization [facility] Address [address] [place] [address] Care Team Providers Name Role Phone Shayla Alford D.O. Primary Care Provider [phone] Reason for Visit Reason Comments Communication Encounter Details Date Type Department Care Team Description 07/11/2021 Clinical Communication Department of Urology Lea Morin Communication in [facility] C, R.N. [address] [place] [phone] Social History Tobacco Use [...] do you attend mu-ism or Never 2021 jewish services? Do you [...] have completed or the highest Martin, MEd, LABORATORY EQUIPMENT INSTALLER, [place]) degree you have received? Sex [...] documented as of this encounter Care Teams Generating Station Mechanic Relationship Specialty Start Date End Date Shayla Alford D.O. PCP - General Internal Medicine 05/22/[address] [phone] documented as of this encounter
--- OUTSIDE RECORDS SUMMARY | 2022-05-28 07:08 | XMS_ITS | Encounter Summary ---
:1945 Author Organization [facility] Address [address] [place] [address] Care Team Providers Name Role Phone Shayla Alford D.O. 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 [facility] [place] [facility] Procedures CT Urogram without and with IV Contrast [address] [place] [address] [phone] Referral ID Status Reason Start Date Expiration Date Visits Requ ested Visits Authorized [id number] Closed 07/02/2021 07/02/2022 1 1 Encounter Details Date Type Department Care Team Description 07/10/2021 Hospital Encounter Department of Cirilo Bernal Neoplasm Of Radiology in Pato Mims Bladder Posterior [place], [place] [address] ([facility]) [address] [place] [phone] Social History Tobacco Use Types Packs/Day Years [...] completed or the highest Martin, MEd, FILM PROCESS OPERATOR, CAYDEN) degree you have received? Sex [...] (FREESTYLE SOFYA) times a day. Use to [facility] scan Sofya sensor 5 [...] as of this encounter Care Teams Data Entry Technician Relationship Specialty Start Date End Date Shayla Alford D.O. PCP - General Internal Medicine 05/22/[address] [phone] documented as of this encounter
--- OUTSIDE RECORDS SUMMARY | 2022-05-28 07:08 | XMS_ITS | Encounter Summary ---
:1945 Author Organization [facility] Address [address] [place] [address] Care Team Providers Name Role Phone Shayla Alford D.O. Primary Care Provider [phone] Encounter Details Date Type Department Care Team Description 07/09/2021 Hospital Encounter Department of Cirilo Bernal Neoplasm Of Laboratory Medicine Pato Mims Bladder Posterior in [place], [address] ([facility] [address] [place] [phone] Social History Tobacco Use [...] do you attend mosque or Never 2021 samaritan services? Do you [...] have completed or the highest Martin, MEd, RESIDENT INSPECTOR, CAYDEN) degree you have received? Sex [...] PEN NEEDLE, DIABETIC Yani Fine 30 0 [facility] disposable needles. 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 PCP - General Internal Medicine 05/22/[address] [place] [phone] documented as of this encounter
--- OUTSIDE RECORDS SUMMARY | 2022-05-28 07:09 | XMS_ITS | Encounter Summary ---
:1945 Author Organization [facility] Address [address] [place] [address] Care Team Providers Name Role Phone Shayla Alford D.O. Primary Care Provider [phone] Reason for Referral Outpatient (Routine) - Closed Specialty Diagnoses / Procedures Referred By Contact Refer red To Contact [facility] Internal ARMAAN Alford SE, D.O. [address] [address] Referral ID Status Reason Start Date Expiration Date Visits Requ ested Visits Authorized [id number] Closed 05/23/2021 05/23/2022 1 1 Scheduling Instructions May use same slot to allow patient to sc hedule at 9 AM Diabetes follow up Reason for Visit Reason Comments Follow-up DM, CKD Outpatient (Routine) - Closed Specialty Diagnoses / Procedures Referred By Contact Madelaine castillo To Contact [facility] Internal ARMAAN Alford SE, D.O. 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 Diabetes Mellitus Type 2 Hyperglycemia ( HCC); [place] [address] Asthma Extrinsic Moderate (HCC); [address] [place], [place] Hypertension Essential Prima ry; [place] [address] Chronic Kidney Disease (CKD), Stage 3b G lomerular Filtration Rate (GFR) 30 To 44 ([facility]) [phone] Social History Tobacco Use [...] do you attend judaism or Never 2021 zoroastrian services? Do you [...] have completed or the highest Martin, MEd, PBX MECHANIC, CAYDEN) degree you have received? Sex [...] behalf by Sarai Cason, a trained medical apparatus model maker. The creation of this recordis based on the scribe remotely listening to the visit and the provider's statements to them. This do cument has been checked and approved by the attending provider. Time spent 33 minutes Electronically signed by: Shayla Alford D.O. 05/23/21 5:22 PM CDT documented in this encounter Plan of Treatment Scheduled Referrals Name Type Priority Associated Diagnoses Order S [facility] Internal Outpatient Referral Routine [...] as of this encounter Care Teams Insurance Application Investigator Relationship Specialty Start Date End Date Shayla Alford D.O. PCP - General Internal Medicine 05/22/[address] [address] documented as of this encounter
--- OUTSIDE RECORDS SUMMARY | 2022-05-28 07:09 | XMS_ITS | Encounter Summary ---
:1945 Author Organization [facility] Address [address] [place] [address] Care Team Providers Name Role Phone Shayla Alford D.O. Primary Care Provider [phone] Encounter Details Date Type Department Care Team Description 05/22/2021 Hospital Encounter Department of Alexys Diabete s Mellitus Type Laboratory Medicine Shayla queen, 2 With Coleman navarro in [place] Nephropathy [place] [address] Hyperglycemic (HCC) [address] [place] [phone] Social History Tobacco Use [...] do you attend restorationist or Never 2021 methodist services? Do you [...] completed or the highest Martin, MEd, INDUSTRIAL ACCOUNTANT, CAYDEN) degree you have received? Sex [...] times a day. Use to [facility] scan Sofya sensor 5 times daily and [...] PEN NEEDLE, DIABETIC Yani Fine 30 0 [facility] disposable needles. For use with Insulin Pens, 4 times daily SYRINGE-NEEDLE,INSULIN,0 0 .5 ML (INSULIN SYRINGE [facility]) budesonide-formoteroL Inhale 2 puffs daily 0 10/0 [...] Phon e Number [facility]- [address] [place] [id number] [facility] [place] [id number] System in [place] [address] documented in this encounter Visit Diagnoses Diagnosis Diabetes Mellitus Type 2 With Diabetic N ephropathy Hyperglycemic (HCC) documented in this encounter Additional Health Concerns Assessment Noted Time PHQ-9 Depression Total Score: 18 04/28/2018 11:27 AM C DT documented as of this encounter Care Teams Quill Cleaning Machine Operator Relationship Specialty Start Date End Date Shayla Alford D.O. PCP - General Internal Medicine 05/22/20 [address] [place] [phone] documented as of this encounter
--- OUTSIDE RECORDS SUMMARY | 2022-05-28 07:09 | XMS_ITS | Encounter Summary ---
:1945 Author Organization [facility] Address [address] [place] [address] Care Team Providers Name Role Phone Shayla Alford D.O. Primary Care Provider [phone] Reason for Visit Reason Onset Date Comments Hypertension 05/03/2021 Symptom Assessment 05/03/2021 Encounter Details Date Type Department Care Team Description 05/03/2021 Remote Monitoring Remote Patient Prateek Padilla; Monitoring Donna Duque R.N. Symptom Assessment [place] [address] [address] [facility] (Work) [place] [address] Social History Tobacco Use Types Packs/Day Years [...] do you attend presybeterian or Never 2021 confucianism services? Do you [...] have completed or the highest Martin, MEd, SOW MANAGER, CAYDEN) degree you have received? Sex [...] documented as of this encounter Care Teams Degreasing Solution Mixer Relationship Specialty Start Date End Date Shayla Alford D.O. PCP - General Internal Medicine 05/22/[address] [phone] documented as of this encounter
--- OUTSIDE RECORDS SUMMARY | 2022-05-28 07:09 | XMS_ITS | Encounter Summary ---
:1945 Author Organization [facility] Address [address] [place] [address] Care Team Providers Name Role Phone Shayla Alford D.O. Primary Care Provider [phone] Reason for Referral Outpatient (Routine) - Closed Specialty Diagnoses / Procedures Referred By Contact Refer anna To Contact Nephbenito and Melissa Ferrer [place] [facility] [address] [place] [address] Referral ID Status Reason Start Date Expiration Date Visits Requ ested Visits Authorized [id number] Closed 05/16/2021 05/16/2022 1 1 Reason for Visit Reason Comments Chronic Kidney Disease Outpatient (Routine) - Closed Specialty Diagnoses / Procedures Referred By Contact Madelaine csatillo To Contact Melissa March [place] [facility] [address] [place] [address] Referral ID Status Reason Start Date Expiration Date Visits Requ ested Visits Authorized [id number] Closed 04/12/2021 04/12/2022 1 1 Encounter Details Date Type Department Care Team Description 05/16/2021 Office Visit Division of Nephrology Fabio Ferrer Kidney Disease (CKD), Stage 3b Glomerular Filtration Rate (GFR) 30 To 44 (HCC) (Primary Dx); and Hypertension in Melissa, Hyperten nubia Essential Primary [place], [place] M.B.B.S. [address] [place] [address] [phone] Social History Tobacco Use Types Packs/Day Years [...] completed or the highest Martin, MEd, PRESCHOOL SUBSTITUTE TEACHER, CAYDEN) degree you have received? Sex [...] now started on SGLT-2 inhibitor by his trim mechanic in [place]. We discussed stopping his afternoon dose of [...] (ABNORMAL) Albumin, Random, Urine (10/18/2021 10:20 AM FLEET SALESPERSON) [facility] Method Time Signature Microalbumin 66.0 mg/L 10/18/2021 OWAT 1:14 PM FLEET SALESPERSON Creatinine 26 mg/dL 10/18/2021 OWAT 1:14 PM FLEET SALESPERSON Albumin/Creatinin 254 (H) <17 mg/g 10/18/2021 OWAT e Ratio 1:14 PM FLEET SALESPERSON Specimen Anatomical Collection Method Collection Time Receive d Time (Source) Location / / Volume Laterality Urine (Urine, 10/18/2021 10:20 10/18/2021 Clean Catch) AM FLEET SALESPERSON 12:44 PM FLEET SALESPERSON Melissa Blackmon LAB URINE ORDERABLES Performing Organization Address City/State/ZIP Code Phon e Number [facility]- [address] [place] [address] [place] [address] System in [place] [address] (ABNORMAL) Urinalysis with Microscopic: Urine, Midstream (10/18/2021 10:20 AM FLEET SALESPERSON) Analysis Performed At Path logist Time Signature Source Urine, Urine, 10/18/2021 FB60 Midstream 10:31 AM FLEET SALESPERSON Clarity Clear Clear 10/18/2021 FB60 11:03 AM FLEET SALESPERSON Color Yellow 10/18/2021 FB60 11:03 AM FLEET SALESPERSON Comment: ----REFERENCE VALUE---- Colorless Yellow Mitra Blood Negative Negative 10/18/2021 11:03 AM FLEET SALESPERSON FB60 Nitrite Negative Negative 10/18/2021 11:03 AM FLEET SALESPERSON FB60 Leukocyte Esterase Negative Negative 10/18/2021 11:[address] FB60 Protein Negative mg/dL 10/18/2021 11:03 AM FLEET SALESPERSON FB60 Comment: ----REFERENCE VALUE---- Negative Trace Glucose >=1000 (A) Negative mg/dL 10/18/2021 11:03 AM FLEET SALESPERSON FB60 Ketones, QI(U) Negative Negative mg/dL 10/18/2021 11:03 AM FLEET SALESPERSON FB60 Bilirubin Negative Negative 10/18/2021 11:03 AM FLEET SALESPERSON FB60 pH 5.5 5.0 - 8.0 10/18/2021 11:03 AM FLEET SALESPERSON FB60 Specific [place] 1.010 1.001 - 1.035 10/18/2021 11:03 AM FLEET SALESPERSON FB60 Urobilinogen 0.2 0.2 - 1.0 mg/dL 10/18/2021 11:[address] FB60 White Blood Cells Occ-3 /hpf 10/18/2021 11:04 AM CS T FB60 Comment: ----REFERENCE VALUE---- Males: 0-3 Females: 0-10 Unknown: 0-10 Red Blood Cells None Seen 0 - 2 /hpf 10/18/2021 11:04 AM FLEET SALESPERSON FB60 Specimen Anatomical Collection Method Collection Time Receive d Time (Source) Location / / Volume Laterality Urine (Urine, 10/18/2021 10:20 10/18/2021 Midstream) AM FLEET SALESPERSON 10:31 AM FLEET SALESPERSON Melissa RiveraS. LAB URINE ORDERABLES Performing Organization Address City/State/ZIP Code Phon e Number [facility]- [address] [place] [address] [place] [address] [facility] [place] [address] System in [address] Uric Acid (10/09/2021 11:08 AM FLEET SALESPERSON) P athologist Signature Uric Acid, P 7.5 3.7 - 8.0 10/09/2021 AUST mg/dL 4:28 PM FLEET SALESPERSON Specimen Anatomical Collection Method Collection Time Receive d Time (Source) Location / / Volume Laterality Blood (Blood, 10/09/2021 11:08 10/09/2021 4:05 Venous) AM FLEET SALESPERSON PM FLEET SALESPERSON Melissa GarciaB.S. LAB BLOOD ADD-ON Performing Organization Address City/State/ZIP Code Phon e Number [facility]- [address] [place] [address] [facility] [place] [address] [facility] [address] (ABNORMAL) Renal Function Panel (10/09/2021 11:08 AM FLEET SALESPERSON) Analysis Performed At Patho logist Time Signature Potassium, P 4.6 3.6 - 5.2 10/09/2021 OWAT mmol/L 11:36 AM FLEET SALESPERSON Sodium, P 133 (L) 135 - 145 10/09/2021 OWAT mmol/L 11:36 AM FLEET SALESPERSON Chloride, P 98 98 - 107 10/09/2021 OWAT mmol/L 11:36 AM FLEET SALESPERSON Bicarbonate, P 22 22 - 29 10/09/2021 OWAT mmol/L 11:35 AM FLEET SALESPERSON Anion Gap, P 13 7 - 15 10/09/2021 OWAT 11:36 AM FLEET SALESPERSON BUN (Blood Urea 38 (H) 8 - 24 10/09/2021 OWAT Nitrogen), P mg/dL 11:35 AM FLEET SALESPERSON Creatinine 1.69 (H) 0.74 - 10/09/2021 OWAT 1.35 mg/dL 11:35 AM FLEET SALESPERSON eGFR-Black/Afri 44 (L) >=60 10/09/2021 OWAT can Latvian mL/min/BSA 11:35 AM FLEET SALESPERSON Comment: ----ADDITIONAL INFORMATION---- Estimated GFR calculated using the 2009 CKD_EPI creatinine equation. eGFR Non-Black/ 38 (L) >=60 mL/min/BSA 10/09/2021 11:35 AM FLEET SALESPERSON OWAT [place]ian Comment: ----ADDITIONAL INFORMATION---- Estimated GFR calculated using the 2009 CKD_EPI creatinine equation. Calcium, Total, P 8.9 8.8 - 10.2 mg/dL 10/09/2021 11:3 5 AM FLEET SALESPERSON OWAT Glucose, P 440 (CH) 70 - 140 mg/dL 10/09/2021 12:34 PM FLEET SALESPERSON OWAT Albumin, P 3.6 3.5 - 5.0 g/dL 10/09/2021 11:35 AM FLEET SALESPERSON OWAT Phosphorus (Inorganic), P 4.4 2.5 - 4.5 mg/dL 10/09/19 4:28 PM FLEET SALESPERSON AUST Specimen Anatomical Collection Method Collection Time Receive d Time (Source) Location / / Volume Laterality Blood (Blood, 10/09/2021 11:08 10/09/2021 4:05 Venous) AM FLEET SALESPERSON PM FLEET SALESPERSON Narrative [facility] - 10/09/2021 4:28 PM FLEET SALESPERSON Specimen Information: Specimen ID: [id number] Specimen Type: Blood Specimen Collection Start Date: 10/09/19 11:08 AM Specimen Received Date: 10/09/2021 ??4:0 5 PM Specimen ID: [id number] Specimen Type: Blood Specimen Collection Start Date: 10/09/19 11:08 AM Specimen Received Date: 10/09/2021 11:09 AM Melissa Blackmon LAB BLOOD ADD-ON Performing Organization Address City/State/ZIP Code Phon e Number [facility]- [address] [place] [address] [place] [address] System in [place] [address] [facility] [place] [address] [facility] [address] documented in this encounter [...] documented as of this encounter Care Teams Hris Administrator Relationship Specialty Start Date End Date Shayla Alford D.O. PCP - General Internal Medicine 05/22/[address] [place] [phone] documented as of this encounter
--- OUTSIDE RECORDS SUMMARY | 2022-05-28 07:09 | XMS_ITS | Encounter Summary ---
:1945 Author Organization [facility] Address [address] [place] [address] Care Team Providers Name Role Phone Shayla Alford D.O. Primary Care Provider [phone] Reason for Visit Reason Onset Date Comments Hypertension 05/07/2021 Symptom Assessment 05/07/2021 Encounter Details Date Type Department Care Team Description 05/07/2021 Remote Monitoring Remote Patient Raquel Caldwell, Hypert ension; Symptom Monitoring R.N. Assessment [facility] [address] [facility] [address] [place] [phone] Social History Tobacco Use Types Packs/Day Years [...] do you attend mu-ism or Never 2021 samaritan services? Do you [...] have completed or the highest Martin, MEd, ENFORCEMENT OFFICER, CAYDEN) degree you have received? Sex [...] as of this encounter Care Teams Glove Turner Relationship Specialty Start Date End Date Shayla Alford D.O. PCP - General Internal Medicine 05/22/[address] [phone] documented as of this encounter
--- OUTSIDE RECORDS SUMMARY | 2022-05-28 07:09 | XMS_ITS | Encounter Summary ---
:[address] [facility] Address [address] [place] [address] Care Team Providers Name Role Phone Shayla Alford D.O. Primary Care Provider [phone] Reason for Visit Reason Comments Nurse Visit BP check Outpatient (Routine) - Closed Specialty Diagnoses / Procedures Referred By Contact Refer red To Contact Diagnoses Hypertension Essential Primary Shayla Alford [facility] Region [address], [place] [address] Referral ID Status Reason Start Date Expiration Date Visits Requ ested Visits Authorized [id number] Closed 05/01/2021 05/01/2022 1 1 Encounter Details Date Type Department Care Team Description 05/02/2021 Nurse Only Department of Family Shayla Murillo D.OMauro [address], [place] [phone] Nurse Visit (BP check) [facility] [place] Kayli Garcia, L.PMauroNMauro [address] [place] [address] Clinic, in [place] [address] [place] [phone] Social History Tobacco Use Types Packs/Day Years [...] do you attend quaker or Never 2021 hinduism services? Do you [...] completed or the highest Martin, MEd, COLLEGE ASSOCIATE, CAYDEN) degree you have received? Sex [...] as of this encounter Care Teams Golf Shoe Spike Assembler Relationship Specialty Start Date End Date Shayla Alford D.O. PCP - General Internal Medicine 05/22/[address] [address] documented as of this encounter
--- OUTSIDE RECORDS SUMMARY | 2022-05-28 07:09 | XMS_ITS | Encounter Summary ---
:1945 Author Organization [facility] Address [address] [place] [address] Care Team Providers Name Role Phone Shayla Alford D.O. Primary Care Provider [phone] Encounter Details Date Type Department Care Team Description 06/18/2021 Hospital Encounter Department of Dolores, Personal History Of Laboratory Medicine Pato Mims Malignant Neoplasm Of in [place], [address] [facility] [address] [place] [phone] Social History Tobacco Use [...] do you attend mosque or Never 2021 jehovah's witness services? Do [...] completed or the highest Martin, MEd, NURSE EXTERN, CAYDEN) degree you have received? Sex Assigned [...] PEN NEEDLE, DIABETIC Yani Fine 30 0 [facility] disposable needles. For use with Insulin Pens, 4 times daily SYRINGE-NEEDLE,INSULIN,0 0 .5 ML (INSULIN SYRINGE [facility] budesonide-formoteroL Inhale 2 puffs [...] Priority Date/Time Associated Diagnosis Comme nts CYTOLOGY NON-BOILER SETTER Routine 06/18/2021 9:08 AM Personal History O f Results for this (SCHEDULED) CDT Malignant Neoplasm procedure are in Of Bladder the results section. documented in this encounter Results (ABNORMAL) Cytology Non-BOILER SETTER (Scheduled) (06/18/2021 9:08 AM CDT) Component Value Ref Test Analysis Performed At [facility] gist Range Method Time Signature 06/19/2021 [...] e Number [facility]- [address] [place], [place] [phone] [place] [address] CYT[address]Y [facility] [address] Cytology 1025 [facility] documented in this encounter Visit Diagnoses Diagnosis Personal History Of Malignant Neoplasm O f Bladder documented in this encounter Additional Health Concerns Assessment Noted Time PHQ-9 Depression Total Score: 18 04/28/2018 11:27 AM C DT documented as of this encounter Care Teams Pediatric Intensive Physician Relationship Specialty Start Date End Date Shayla Alford D.O. PCP - General Internal Medicine 05/22/[address] [phone] documented as of this encounter
--- OUTSIDE RECORDS SUMMARY | 2022-05-28 07:09 | XMS_ITS | Encounter Summary ---
:1945 Author Organization [facility] Address [address] [place] [address] Care Team Providers Name Role Phone Shayla Alford D.O. Primary Care Provider [phone] Reason for Visit Reason Onset Date Comments Complex Care Coordination 07/01/2021June Esha santillan Encounter Details Date Type Department Care Team Description 07/01/2021 Remote Monitoring Remote Patient BatistaSushma Complex Care Monitoring [address] [facility] Coordination (June [facility] [address] [place], [place] Billing ) [address] [facility] [address] [place], [place] [phone] (Work) Social History Tobacco Use Types Packs/Day [...] do you attend mosque or Never 2021 catholic services? Do you [...] have completed or the highest Martin, MEd, DESTINATION IMAGINATION COORDINATOR, CAYDEN) degree you have received? Sex [...] documented as of this encounter Care Teams Credit Union Teller Relationship Specialty Start Date End Date Shayla Alford D.O. PCP - General Internal Medicine 05/22/[address] [phone] documented as of this encounter
--- OUTSIDE RECORDS SUMMARY | 2022-05-28 07:09 | XMS_ITS | Encounter Summary ---
:1945 Author Organization [facility] Address [address] [place] [address] Care Team Providers Name Role Phone Shayla Alford D.O. Primary Care Provider [phone] Reason for Visit Reason Onset Date Comments Complex Care Coordination 05/27/2021April Billing Encounter Details Date Type Department Care Team Description 05/27/2021 Remote Monitoring Remote Patient Siomara Jeffries Complex Care Monitoring [phone] Coordination ([facility] ([facility] Billing) [address] [place] [address] Social History Tobacco Use Types Packs/Day Years [...] do you attend anabaptism or Never 2021 islam services? Do you [...] have completed or the highest Martin, Sirena, SAND SIFTER, CAYDEN) degree you have received? Sex Assigned at Date Recorded Male 05/21/2018 2:34 PM CDT documented as of this encounter Plan of Treatment Not on filedocumented as of this encounter Visit Diagnoses Diagnosis Hypertension Essential Primary documented in this encounter Additional Health Concerns Assessment Noted Time PHQ-9 Depression Total Score: 18 04/28/2018 11:27 AM C DT documented as of this encounter Care Teams Apricot Washer Relationship Specialty Start Date End Date Shayla Alford D.O. PCP - General Internal Medicine 05/22/[address] [phone] documented as of this encounter
--- OUTSIDE RECORDS SUMMARY | 2022-05-28 07:09 | XMS_ITS | Encounter Summary ---
:1945 Author Organization [facility] Address [address] [place] [address] Care Team Providers Name Role Phone Shayla Alford D.O. Primary Care Provider Reason for Visit Reason Onset Date Comments Hypertension 05/01/2021 Symptom Assessment 05/01/2021 Encounter Details Date Type Department Care Team Description 05/01/2021 Remote Monitoring Remote Patient Prateek Padilla; Monitoring Donna Duque R.N. Symptom Assessment [facility] [address] [address] [facility] (Work) [place] [address] Social History Tobacco Use Types Packs/Day Years [...] you attend jehovah's witness or Never 2021 presybeterian services? Do you [...] have completed or the highest Martin, MEd, NURSERYMAN ASSISTANT, CAYDEN) degree you have received? Sex Assigned at Date Recorded Male 05/21/2018 2:34 PM CDT documented as of this encounter Plan of Treatment Not on filedocumented as of this encounter Visit Diagnoses Not on filedocumented in this encounter Additional Health Concerns Assessment Noted Time PHQ-9 Depression Total Score: 18 04/28/2018 11:27 AM C DT documented as of this encounter Care Teams Senior Web Services Developer Relationship Specialty Start Date End Date Shayla Alford D.O. PCP - General Internal Medicine 05/22/20 [address] [place] [address] documented as of this encounter
--- OUTSIDE RECORDS SUMMARY | 2022-05-28 07:09 | XMS_ITS | Encounter Summary ---
:1945 Author Organization [facility] Address [address] [place] [address] Care Team Providers Name Role Phone Shayla Alford D.OMauro Primary Care Provider [phone] Reason for Visit Reason Comments Med Refill Encounter Details Date Type Department Care Team Description 05/29/2021 Refill Department of Internal Medicine Shayla Rob, [facility] [place] [facility] [address] [place] [address] [place] [address] [phone] (Wo rk) Social History Tobacco Use Types [...] do you attend religious or Never 2021 jewish services? Do you [...] have completed or the highest Martin, MEd, VERIFICATION SPECIALIST, CAYDEN) degree you have received? Sex [...] have his diabetes care managed by his [facility] and not [facility]. He [...] by mouth every morning before breakfast. Pharmacy: [facility] - [place], [place] - [facility] (Pharmacy) [phone] documented in this encounter Plan of Treatment Not on filedocumented as of this encounter Visit Diagnoses Diagnosis Diabetes Mellitus Type 2 Hyperglycemia ( HCC) documented in this encounter Additional Health Concerns Assessment Noted Time PHQ-9 Depression Total Score: 18 04/28/2018 11:27 AM C DT documented as of this encounter Care Teams Edge Trimmer Relationship Specialty Start Date End Date Shayla Alford D.O. PCP - General Internal Medicine 05/22/[address] [phone] documented as of this encounter
--- OUTSIDE RECORDS SUMMARY | 2022-05-28 07:09 | XMS_ITS | Encounter Summary ---
:1945 Author Organization [facility] Address [address] [place] [address] Care Team Providers Name Role Phone Shayla Alford D.O. Primary Care Provider [phone] Encounter Details Date Type Department Care Team Description 05/16/2021 Hospital Encounter Department of [facility], Chronic Kidney Disease (CKD), Stage 3b Glomerular Filtration Rate (GFR) 30 To 44 (HCC); Laboratory Medicine Prateek Torres [facility] in [address] [place] [address] [place] [address] [place], [place] [phone] (Work) [phone] Social History Tobacco Use Types Packs/Day Years [...] do you attend religion or Never 2021 scientologist services? Do you [...] completed or the highest Martin, MEd, HEAD REFRIGERATION ENGINEER, CAYDEN) degree you have received? Sex [...] (FREESTYLE SOFYA) times a day. Use to [facility] [place] [place] scan Sofya sensor 5 times daily [...] PEN NEEDLE, DIABETIC Yani Fine 30 0 [facility] disposable needles. For use with Insulin Pens, 4 times daily SYRINGE-NEEDLE,INSULIN,0 0 .5 ML (INSULIN SYRINGE [facility] [place] budesonide-formoteroL [...] GarciaBMauroSMauro LAB URINE ORDERABLES Performing Organization Address City/[facility]/ZIP [facility] Phon e Number [facility] - 200 [place], [place] [address] [place] [address] [place] [address] pH, Urine (05/16/2021 1:08 PM CDT) P athologist Signature pH, U 5.0 4.5 - 8.0 05/16/2021 2:25 DTL PM CDT Specimen Anatomical Collection Method Collection Time Receive d Time (Source) Location / / Volume Laterality Urine 05/16/2021 1:08 PM 1 1:45 CDT PM CDT Melissa RiveraSMauro LAB URINE ORDERABLES Performing Organization Address City/[facility]/ZIP Code Phon e Number [facility] - 200 [place], [place] [address] [facility] [place] [address] Microscopic Automated (05/16/2021 1:08 PM CDT) P athologist Signature Microscopy Normal 05/16/2021 2:05 DTL PM CDT Specimen Anatomical Collection Method Collection Time Receive d Time (Source) Location / / Volume Laterality Urine 05/16/2021 1:08 PM 1 1:45 CDT PM CDT Melissa RiveraSMauro LAB URINE ORDERABLES Performing Organization Address City/[facility]/ZIP [facility] Phon e Number [facility] - 200 [place], [place] [address] [facility] [place] [address] (ABNORMAL) Dipstick, Urine (05/16/2021 1:08 PM [...] RiveraSMauro LAB URINE ORDERABLES Performing Organization Address City/[facility] Code Phon e Number [facility] - [address] (ABNORMAL) Albumin, Random, Urine (05/16/2021 1:08 PM CDT) P athologist Signature Albumin, 120.9 mg/L 05/17/2021 DTL Random, U 8:10 AM CDT Comment: ----ADDITIONAL INFORMATION---- This test has been modified from the rachel blunt's instructions. Its performance characteri stics were determined by [facility] in a manner co nsistent with [...] RiveraSMauro LAB URINE ORDERABLES Performing Organization Address City/[facility]/ZIP Code Phon e Number [facility] - [address] (ABNORMAL) Urinalysis with Microscopic: Urine, Midstream [...] Address City/State/ZIP Code Phon e Number [facility] - [address] [place], [place] [address] [facility] [place] [address] [facility] [address] documented in this encounter Visit Diagnoses Diagnosis Chronic Kidney Disease (CKD), Stage 3b G lomerular Filtration Rate (GFR) 30 To 44 (HCC) Hypertension Essential Primary documented in this encounter Additional Health Concerns Assessment Noted Time PHQ-9 Depression Total Score: 18 04/28/2018 11:27 AM C DT documented as of this encounter Care Teams Furnace Repairer Helper Relationship Specialty Start Date End Date Shayla Alford D.O. PCP - General Internal Medicine 05/22/[address] [phone] documented as of this encounter
--- OUTSIDE RECORDS SUMMARY | 2022-05-28 07:09 | XMS_ITS | Encounter Summary ---
:1945 Author Organization [facility] Address [address] [place] [address] Care Team Providers Name Role Phone Shayla Alford D.O. Primary Care Provider [phone] Reason for Visit Reason Onset Date Comments Hypertension 06/11/2021 Symptom Assessment 06/11/2021 Encounter Details Date Type Department Care Team Description 06/11/2021 Remote Monitoring Remote Patient Prateek Padilla; Monitoring Donna Duque R.N. Symptom Assessment [place] [address] [address] [facility] (Work) [place] [address] Social History Tobacco Use Types Packs/Day Years [...] do you attend adventism or Never 2021 taoism services? Do you [...] have completed or the highest Martin, MEd, HULL BUILDER, CAYDEN) degree you have received? Sex [...] as of this encounter Care Teams Claims Coordinator Relationship Specialty Start Date End Date Shayla Alford D.O. PCP - General Internal Medicine 05/22/[address] [phone] documented as of this encounter
--- OUTSIDE RECORDS SUMMARY | 2022-05-28 07:09 | XMS_ITS | Encounter Summary ---
:1945 Author Organization [facility] Address [address] [place] [address] Care Team Providers Name Role Phone Shayla Alford D.O. Primary Care Provider [phone] Reason for Visit Reason Onset Date Comments Hypertension 06/06/2021 Symptom Assessment 06/06/2021 Encounter Details Date Type Department Care Team Description 06/06/2021 Remote Monitoring Remote Patient Prateek Padilla; Monitoring Donna Duque R.N. Symptom Assessment [place] [address] [address] [facility] (Work) [place] [address] Social History Tobacco Use Types Packs/Day Years [...] do you attend uatsdin or Never 2021 religion services? Do you [...] have completed or the highest Martin, MEd, BANKRUPTCY PARALEGAL, CAYDEN) degree you have received? Sex Assigned [...] documented as of this encounter Care Teams Spare Person Relationship Specialty Start Date End Date Shayla Alford D.O. PCP - General Internal Medicine 05/22/20 [address] [place] [phone] documented as of this encounter
--- OUTSIDE RECORDS SUMMARY | 2022-05-28 07:09 | XMS_ITS | Encounter Summary ---
:1945 Author Organization [facility] Address [address] [place] [address] Care Team Providers Name Role Phone Shayla Alford D.O. Primary Care Provider [phone] Reason for Visit Reason Onset Date Comments Complex Care Coordination 05/29/2021April Billing Encounter Details Date Type Department Care Team Description 05/29/2021 Remote Monitoring Remote Patient BatistaSushma Complex Care Monitoring [address] [facility] Coordination (April [facility] [place], [place] Billing ) [address] [facility] [address] [place], [place] [phone] (Work) Social History Tobacco Use Types Packs/Day [...] do you attend confucianist or Never 2021 yarsanism services? Do you [...] have completed or the highest Martin, MEd, ABLE BODIED WATCHMAN, CAYDEN) degree you have received? Sex [...] documented as of this encounter Care Teams Beer Merchant Relationship Specialty Start Date End Date Shayla Alford D.O. PCP - General Internal Medicine 05/22/[address] [phone] documented as of this encounter
--- OUTSIDE RECORDS SUMMARY | 2022-05-28 07:09 | XMS_ITS | Encounter Summary ---
:1945 Author Organization [facility] Address [address] [place] [address] Care Team Providers Name Role Phone Shayla Alford D.O. Primary Care Provider [phone] Reason for Referral Outpatient (Routine) - Closed Specialty Diagnoses / Procedures Referred By Contact Refer red To Contact [facility] Internal ARMAAN Alford [place] [address] [place] [phone] Referral ID Status Reason Start Date Expiration Date Visits Requ ested Visits Authorized [id number] Closed 06/19/2021 06/19/2022 1 1 Scheduling Instructions Schedule one hour for preop Colonoscopy plus follow up CHF, CKD , diabetes , and HTN Reason for Visit Reason Comments Follow-up Outpatient (Routine) - Closed Specialty Diagnoses / Procedures Referred By Contact Refer red To Contact [facility] Internal ARMAAN Alford SE DMauroOMauro [address] [place] [phone] Referral ID Status Reason Start Date Expiration Date Visits Requ ested Visits Authorized [id number] Closed 05/23/2021 05/23/2022 1 1 Encounter Details Date Type Department Care Team Description 06/19/2021 Office Visit Department of [place] Diabetes Me coxitus Type 2 Hyperglycemia (HCC) (Primary Dx); Internal Medicine in Shayla D. O. Hypertension Essential Primary; [place], [place] [address] Chronic Systolic (Congestive) Heart Fail ure (HCC); [address] [place], [place] Chronic Kidney Disease (CKD) , Stage 3b Glomerular Filtration Rate (GFR) 30 To 44 (HCC); [place] [address] Hypothyroidism; [address] Hyperlipidemia Social History Tobacco Use [...] have completed or the highest Martin, Sirena, PROTECTION ENGINEER, CAYDEN) degree you have received? Sex [...] him today. [place] followed at the [place] where he sees an drilling contractor. He states that his glucose this morning [...] patient has a scheduled trip to [facility]. We discussed the importance of [...] Glomerular Filtration Rate (GFR) 30 To 44 ([facility]) #5 Hypothyroidism #6 Hyperlipidemia In regards to type 2 diabetes, the patient states that his blood sugar levels have improved. Unfortunately, he forgot to bring his meter with him today. He is followed at the [place] where he sees an drilling contractor. He states that his glucose this morning [...] The patient has a scheduled trip to [address] [place] [address]. We discussed the importance of following his [...] eGFR-Black/Afri 36 (L) >=60 07/30/2021 OWAT can [place] mL/min/BSA 10:24 AM CDT Comment: ----ADDITIONAL INFORMATION---- Estimated GFR calculated using the 2009 CKD_EPI creatinine equation. eGFR Non-Black/ 31 (L) >=60 mL/min/BSA 07/30/2021 10:24 AM CDT OWAT [place] Comment: ----ADDITIONAL INFORMATION---- Estimated GFR calculated using [...] e Number [facility]- [address] [place] [address] [place] [address] System in [place] [address] (ABNORMAL) Hemoglobin A1c [...] e Number [facility]- [address] [place] [address] [place] [address] System in [place] [address] [facility] documented [...] documented as of this encounter Care Teams Mc Kay Machine Operator Relationship Specialty Start Date End Date Shayla Alford D.O. PCP - General Internal Medicine 05/22/202199 [place] [address] documented as of this encounter
--- OUTSIDE RECORDS SUMMARY | 2022-05-28 07:09 | XMS_ITS | Encounter Summary ---
:1945 Author Organization [facility] Address [address] [place] [address] Care Team Providers Name Role Phone Shayla Alford D.O. Primary Care Provider [phone] Reason for Referral Outpatient (Routine) - Closed Specialty Diagnoses / Procedures Referred By Contact Refer red To Contact Diagnoses Chronic Kidney Disease (CKD), Stage 3b Glomerular Filtration Rate (GFR) 30 To 44 (HCC) Hypertension Essential Primary Melissa Ferrer M.B.B.SMauro [facility] Procedures US Kidneys with Renal Artery Doppler [address] [place] [address] Referral ID Status Reason Start Date Expiration Date Visits Requ ested Visits Authorized [id number] Closed 04/12/2021 04/12/2022 1 1 Reason for Visit Outpatient (Routine) - Closed Specialty Diagnoses / Procedures Referred By Contact Refer red To Contact Diagnoses Chronic Kidney Disease (CKD), Stage 3b Glomerular Filtration Rate (GFR) 30 To 44 (HCC) Hypertension Essential Primary Melissa Ferrer M.B.B.S. [facility] Procedures US Kidneys with Renal Artery Doppler [address] [place] [address] Referral ID Status Reason Start Date Expiration Date Visits Requ ested Visits Authorized [id number] Closed 04/12/2021 04/12/2022 1 1 Encounter Details Date Type Department Care Team Description 04/27/2021 Hospital Encounter Department of [facility], Chronic Kidney Disease (CKD), Stage 3b Glomerular Filtration Rate (GFR) 30 To 44 (HCC); Radiology, Dayo Richardson [facility], in [place], [place] [address] [facility] [address] [place] [address] [phone] Social History Tobacco Use Types Packs/Day Years [...] do you attend quaker or Never 2021 gnosticism services? Do you [...] completed or the highest Martin, MEd, ACTIVITY AID, CAYDEN) degree you have received? Sex Assigned [...] DIABETIC Yani Fine 30 0 [facility] disposable needles. For use with Insulin Pens, 4 times daily SYRINGE-NEEDLE,INSULIN,0 0 .5 ML (INSULIN SYRINGE [facility]) budesonide-formoteroL Inhale 2 puffs daily 0 10/0 [...] as of this encounter Care Teams Health Professor Relationship Specialty Start Date End Date Shayla Alford D.O. PCP - General Internal Medicine 05/22/[address] [place] [phone] documented as of this encounter
--- OUTSIDE RECORDS SUMMARY | 2022-05-28 07:09 | XMS_ITS | Encounter Summary ---
:1945 Author Organization [facility] Address [address] [place] [address] Care Team Providers Name Role Phone Shayla Alford D.O. Primary Care Provider [phone] Reason for Visit Reason Comments Medical Information Remote BP Monitoring Device Encounter Details Date Type Department Care Team Description 05/01/2021 Clinical Communication Department of Alexys Wheeler [facility] Information Internal Medicine en, Shayla, (Remote BP in [place], D.O. Monitoring Device) [place] [address] [place] [phone] Social History Tobacco Use Types Packs/Day Years [...] do you attend hoahaoism or Never 2021 caodaism services? Do you [...] have completed or the highest Martin, MEd, SPORTS DEVELOPMENT OFFICER, CAYDEN) degree you have received? Sex [...] agreeable to nurse visit. Warm transferred to [facility] to schedule appointment. PLAN Disposition/Recommendation: patient [...] and has been for abouta week. This story writer discussed with the patient that I would look into his home monitoring device, and discuss his situation further with his provider and follow up with a phone call once knowing more information. Nursing then called [phone] and spoke to remote monitoring nurse who instructed this story writer where to find the home monitoring [...] or nurse, please advise. Current Phone Number: [phone] Can Nursing/Provider leave a detailed message: yes [...] documented as of this encounter Care Teams Angle Roll Operator Relationship Specialty Start Date End Date Shayla Alford D.O. PCP - General Internal Medicine 05/22/[address] [phone] documented as of this encounter
--- OUTSIDE RECORDS SUMMARY | 2022-05-28 07:09 | XMS_ITS | Encounter Summary ---
:1945 Author Organization [facility] Address [address] [place] [address] Care Team Providers Name Role Phone Shayla Alford D.O. Primary Care Provider [phone] Reason for Referral Outpatient (Routine) - Closed Specialty Diagnoses / Procedures Referred By Contact Refer red To Contact Diagnoses Hypertension Essential Primary Shayla Alford [facility] D.O. [address] [place] [address] Referral ID Status Reason Start Date Expiration Date Visits Requ ested Visits Authorized [id number] Closed 05/01/2021 05/01/2022 1 1 Encounter Details Date Type Department Care Team Description 05/01/2021 Orders Only Department of Internal Selvin Alford ypertension Essential Medicine in [place] D.O . Primary (Primary Dx) [place] [address] [place] [phone] Social History Tobacco Use Types Packs/Day Years [...] do you attend jew or Never 2021 latter-day services? Do you [...] have completed or the highest Martin, MEd, STEREOTYPE CASTER, CAYDEN) degree you have received? Sex Assigned at Date Recorded Male 05/21/2018 2:34 PM CDT documented as of this encounter Plan of Treatment Scheduled Referrals Name Type Priority Associated Diagnoses Order [facility] Primary Care Outpatient Referral Routine Hypertension Essentia l Expected: nurse visit Primary 05/15/2021 (clinic) - [facility] (Approximate ), [place]; Expires: Vital signs 05/01/2024 documented as of this encounter Visit Diagnoses Diagnosis Hypertension Essential Primary - Primary documented in this encounter Additional Health Concerns Assessment Noted Time PHQ-9 Depression Total Score: 18 04/28/2018 11:27 AM C DT documented as of this encounter Care Teams Silver Designer Relationship Specialty Start Date End Date Shayla Alford D.O. PCP - General Internal Medicine 05/22/[address] [phone] documented as of this encounter
--- OUTSIDE RECORDS SUMMARY | 2022-05-28 07:09 | XMS_ITS | Encounter Summary ---
:1945 Author Organization [facility] Address [address] [place] [address] Care Team Providers Name Role Phone Shayla Alford D.O. Primary Care Provider [phone] Encounter Details Date Type Department Care Team Description 05/24/2021 Clinical Communication Department of Internal Andrei Dejesus Medicine in [place], [place], [place].O Mauro [place] [address] [place] [phone] Social History Tobacco Use Types Packs/Day Years [...] do you attend congregation or Never 2021 caodaism services? Do you [...] have completed or the highest Martin, MEd, TENTMAKER, CAYDEN) degree you have received? Sex Assigned at Date Recorded Male 05/21/2018 2:34 PM CDT documented as of this encounter Miscellaneous Notes Telephone Encounter - Yari Lee - 05/24/2021 11:16 AM CDT Faxed visit note to [facility] per patient request for discontinuation of oxygen. documented in this encounter Plan of Treatment Not on filedocumented as of this encounter Visit Diagnoses Not on filedocumented in this encounter Additional Health Concerns Assessment Noted Time PHQ-9 Depression Total Score: 18 04/28/2018 11:27 AM C DT documented as of this encounter Care Teams Patent Clerk Relationship Specialty Start Date End Date Shayla Alford D.O. PCP - General Internal Medicine 05/22/20 [address] [place] [phone] documented as of this encounter
--- OUTSIDE RECORDS SUMMARY | 2022-05-28 07:09 | XMS_ITS | Encounter Summary ---
:1945 Author Organization [facility] Address [address] [place] [address] Care Team Providers Name Role Phone Dejah Alford D.O. Primary Care Provider [phone] Reason for Visit Reason Onset Date Comments Hypertension 05/25/2021 Follow-up 05/25/2021 Encounter Details Date Type Department Care Team Description 05/25/2021 Remote Monitoring Remote Patient Prateek Padilla; Monitoring Donna Duque R.N. Follow-up [facility] [address] [address] [facility] (Work) [place] [address] Social History Tobacco Use Types Packs/Day Years [...] do you attend mormonism or Never 2021 roman catholic services? Do [...] completed or the highest Martin, MEd, HIGH SPEED OPERATOR, CAYDEN) degree you have received? Sex [...] documented as of this encounter Care Teams Interventional Technologist Relationship Specialty Start Date End Date Dejah Alford D.O. PCP - General Internal Medicine 05/22/202199 [address] [address] documented as of this encounter
--- OUTSIDE RECORDS SUMMARY | 2022-05-28 07:09 | XMS_ITS | Encounter Summary ---
:1945 Author Organization [facility] Address [address] [place] [address] Care Team Providers Name Role Phone Shayla Alford D.O. Primary Care Provider [phone] Reason for Visit Reason Onset Date Comments Complex Care Coordination 06/28/2021May Bill ing Encounter Details Date Type Department Care Team Description 06/28/2021 Remote Monitoring Remote Patient BatistaSushma Complex Care Monitoring [address] [facility] [address] [place], [place] (May Billing ) [address] [facility] [address] [place], [place] [phone] [address] (Work) Social History Tobacco Use Types Packs/Day [...] do you attend caodaism or Never 2021 hinduism services? Do you [...] completed or the highest Martin, MEd, BARREL TESTER AND DRAINER, CAYDEN) degree you have received? Sex Assigned [...] as of this encounter Care Teams Patent Legal Assistant Relationship Specialty Start Date End Date Shayla Alford D.O. PCP - General Internal Medicine 05/22/[address] [address] documented as of this encounter
--- OUTSIDE RECORDS SUMMARY | 2022-05-28 07:09 | XMS_ITS | Encounter Summary ---
:1945 Author Organization [facility] Address [address] [place] [address] Care Team Providers Name Role Phone Shayla Alford D.O. Primary Care Provider [phone] Reason for Visit Reason Onset Date Comments Hypertension 04/25/2021 Welcome Call 04/25/2021 Encounter Details Date Type Department Care Team Description 04/25/2021 Remote Monitoring Remote Patient Prateek Padilla; Monitoring Donna Duque R.N. Welcome Call [facility] [address] [facility] (Work) [place] [address] Social History Tobacco Use Types Packs/Day Years [...] completed or the highest Martin, MEd, TRANSPORTATION MAINTENANCE SUPERVISOR, CAYDEN) degree you have received? Sex Assigned at Date Recorded Male 05/21/2018 2:34 PM CDT documented as of this encounter Plan of Treatment Not on filedocumented as of this encounter Visit Diagnoses Not on filedocumented in this encounter Additional Health Concerns Assessment Noted Time PHQ-9 Depression Total Score: 18 04/28/2018 11:27 AM C DT documented as of this encounter Care Teams Mastic Man Relationship Specialty Start Date End Date Shayla Alford D.O. PCP - General Internal Medicine 05/22/[address] [address] documented as of this encounter
--- OUTSIDE RECORDS SUMMARY | 2022-05-28 07:09 | XMS_ITS | Encounter Summary ---
:1945 Author Organization [facility] Address [address] [place] [address] Care Team Providers Name Role Phone Shayla Alford D.O. Primary Care Provider [phone] Reason for Visit Reason Onset Date Comments Hypertension 04/30/2021 Welcome Call 04/30/2021 Intake Assessment 04/30/2021 Encounter Details Date Type Department Care Team Description 04/30/2021 Remote Monitoring Remote Patient Prateek Padilla; Monitoring Donna Duque R.N. Welcome Call; [facility] Intake Assessment [address] [facility] (Work) [place] [address] Social History Tobacco Use Types Packs/Day Years [...] do you attend jain or Never 2021 mosque services? Do you [...] have completed or the highest Martin, MEd, REFRIGERATED CARGO CLERK, CAYDEN) degree you have received? Sex Assigned at Date Recorded Male 05/21/2018 2:34 PM CDT documented as of this encounter Progress Notes Donna Padilla RShama. 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 Patient is active outside at his [employer]. Jonnathan Costa was instructed on the program using Remote Monitoring program material StayingConnected with Remote Patient Monitoring ([id number]). Patient was instructed on whom to call [...] documented as of this encounter Care Teams Cafeteria Clerk Relationship Specialty Start Date End Date Shayla Alford D.O. PCP - General Internal Medicine 05/22/[address], [place] [address] documented as of this encounter
--- OUTSIDE RECORDS SUMMARY | 2022-05-28 07:09 | XMS_ITS | Encounter Summary ---
:1945 Author Organization [facility] Address [address] [place] [address] Care Team Providers Name Role Phone Shayla Alford D.O. Primary Care Provider [phone] Reason for Visit Reason Onset Date Comments Hypertension 05/07/2021 Encounter Details Date Type Department Care Team Description 05/07/2021 Remote Monitoring Remote Patient Raquel Le Hypertension Monitoring [facility] [address] [place] [address] Social History Tobacco Use Types Packs/Day Years [...] do you attend moravian or Never 2021 spiritism services? Do you [...] have completed or the highest Martin, MEd, KNITTER HELPER, CAYDEN) degree you have received? Sex Assigned at Date Recorded Male 05/21/2018 2:34 PM CDT documented as of this encounter Plan of Treatment Not on filedocumented as of this encounter Visit Diagnoses Not on filedocumented in this encounter Additional Health Concerns Assessment Noted Time PHQ-9 Depression Total Score: 18 04/28/2018 11:27 AM C DT documented as of this encounter Care Teams Electric Bath Attendant Relationship Specialty Start Date End Date Shayla Alford D.O. PCP - General Internal Medicine 05/22/[address] [place] [address] documented as of this encounter
--- OUTSIDE RECORDS SUMMARY | 2022-05-28 07:09 | XMS_ITS | Encounter Summary ---
:1945 Author Organization [facility] Address [address] [place] [address] Care Team Providers Name Role Phone Shayla Alford D.OMauro Primary Care Provider [phone] Reason for Visit Reason Comments Med Refill Encounter Details Date Type Department Care Team Description 06/14/2021 Refill Department of Internal Medicine [facility]la Rob[facility] [address] [place] [address] [place] [address] [phone] (Wo rk) Social History Tobacco Use Types [...] do you attend lutheran or Never 2021 holiness services? Do you [...] have completed or the highest Martin, MEd, EXPLOSIVES HANDLER, CAYDEN) degree you have received? Sex [...] picked this up or not. Please advise [place] pharmacy. Primary Provider: Shayla Alford D.O. 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 PCP - General Internal Medicine 05/22/20 [address] [place] [address] documented as of this encounter
--- OUTSIDE RECORDS SUMMARY | 2022-05-28 07:09 | XMS_ITS | Encounter Summary ---
:[address] [facility] Address [address] [place] [address] Care Team Providers Name Role Phone Shayla Alford D.O. Primary Care Provider [phone] Reason for Visit Reason Onset Date Comments Hypertension 05/11/2021 Symptom Assessment 05/11/2021 Encounter Details Date Type Department Care Team Description 05/11/2021 Remote Monitoring Remote Patient Kayli Gzuman Hyp ertension; Monitoring K, R.N. Symptom Assessment [place] [facility] [address] [address] [facility] (Work) [place] [address] Social History Tobacco Use Types Packs/Day Years [...] do you attend gnosticist or Never 2021 anabaptist services? Do you [...] completed or the highest Martin, MEd, LAND USE PLANNER, CAYDEN) degree you have received? Sex [...] as of this encounter Care Teams Senior Network Systems Engineer Relationship Specialty Start Date End Date Shayla Alford D.O. PCP - General Internal Medicine 05/22/[address] [address] documented as of this encounter
--- OUTSIDE RECORDS SUMMARY | 2022-05-28 07:10 | XMS_ITS | Encounter Summary ---
:1945 Author Organization [facility] Address [address] [place] [address] Care Team Providers Name Role Phone Shayla Alford D.O. Primary Care Provider [phone] Reason for Visit Reason Comments Follow-up Encounter Details Date Type Department Care Team Description 03/02/2021 Patient Outreach Department of Erica Lin Follow -up Cardiovascular Medicine [place], [place] [phone] [address] [facility] (Work) [place] [address] Social History Tobacco Use Types Packs/Day [...] do you attend mormon or Never 2021 yazidi services? Do you [...] have completed or the highest Martin, MEd, BLOCK HACKER, CAYDEN) degree you have received? Sex Assigned at Date Recorded Male 05/21/2018 2:34 PM CDT documented as of this encounter Progress Notes Erica Lin, R.N. - 03/02/2021 1:16 PM CDT SUBJECTIVE CHIEF COMPLAINT / REASON FOR CALL Follow-up Information Discussed Labs drawn yesterday, 03/01/2021 revealed NT proBNP 4755, sodium 137, potassium 3.8, creatinine 1.56, BUN 42. Patient was seen at the [facility] by for post hospital follow-up(patient hospitalized in [place] during the [facility] weekend - for acute heart failure exacerbation [...] as of this encounter Care Teams [employer] Flatbed Truck Driver Relationship Specialty Start Date End Date Shayla Alford D.O. PCP - General Internal Medicine 05/22/[address] [address] documented as of this encounter
--- OUTSIDE RECORDS SUMMARY | 2022-05-28 07:10 | XMS_ITS | Encounter Summary ---
:1945 Author Organization [facility] Address [address] [place] [address] Care Team Providers Name Role Phone Shayla Alford D.O. Primary Care Provider [phone] Encounter Details Date Type Department Care Team Description 04/12/2021 Documentation Division of Gastroenterology Justin feng in [facility] Jem P [address] [facility] [address] [place] [address] [place], [place] [phone] [address] Social History Tobacco Use Types Packs/Day Years [...] do you attend restoration or Never 2021 baptist services? Do you [...] have completed or the highest Martin, MEd, INSOLE STIFFENER, CAYDEN) degree you have received? Sex Assigned at Date Recorded Male 05/21/2018 2:34 PM CDT documented as of this encounter Plan of Treatment Not on filedocumented as of this encounter Visit Diagnoses Not on filedocumented in this encounter Additional Health Concerns Assessment Noted Time PHQ-9 Depression Total Score: 18 04/28/2018 11:27 AM C DT documented as of this encounter Care Teams Veterans Services Specialist Relationship Specialty Start Date End Date Shayla Alford D.O. PCP - General Internal Medicine 05/22/[address] [phone] documented as of this encounter
--- OUTSIDE RECORDS SUMMARY | 2022-05-28 07:10 | XMS_ITS | Encounter Summary ---
:1945 Author Organization [facility] Address [address] [place] [address] Care Team Providers Name Role Phone Shayla Alford.OMauro Primary Care Provider [phone] Encounter Details Date Type Department Care Team Description 04/19/2021 Hospital Encounter Department of Radiology Matias muñiz, Pain Hip Left in [place], Aliciao suman Mcguire, D.O. [address] [place] [address] [place], [place] [phone] [address] Social History Tobacco Use Types Packs/Day [...] do you attend yarsanism or Never 2021 alevism services? Do you [...] have completed or the highest Martin, MEd, CORPORATION OFFICER, CAYDEN) degree you have received? Sex [...] 1 each 0 03/02/20 21 reader (FREESTYLE SOYFA) times a day. Use to [facility] scan Sofya sensor 5 times daily and [...] NEEDLE, DIABETIC Yani Fine 30 0 [facility] disposable needles. For use with Insulin Pens, 4 times daily SYRINGE-NEEDLE,INSULIN,0 0 .5 ML (INSULIN SYRINGE [facility]) budesonide-formoteroL Inhale 2 puffs daily [...] these can be found in the pharmacy [id number] Electronically signed by: Shayla Alford D.O. 04/19/21 [...] documented as of this encounter Care Teams Belt Notcher Relationship Specialty Start Date End Date Shayla Alford D.O. PCP - General Internal Medicine 05/22/[address] [address] documented as of this encounter
--- OUTSIDE RECORDS SUMMARY | 2022-05-28 07:10 | XMS_ITS | Encounter Summary ---
:1945 Author Organization [facility] Address [address] [place] [address] Care Team Providers Name Role Phone Shayla Alford D.O. Primary Care Provider [phone] Reason for Referral Outpatient (Routine) - Closed Specialty Diagnoses / Procedures Referred By Contact Refer red To Contact [facility] ARMAAN Alford SE, D.O. [address] [place] [address] Referral ID Status Reason Start Date Expiration Date Visits Requ ested Visits Authorized [id number] Closed 03/14/2021 03/14/2022 1 1 Scheduling Instructions Diabetes type II, CHF , asthma Schedule one hour Reason for Visit Reason Comments Follow-up Outpatient (Routine) - Closed Specialty Diagnoses / Procedures Referred By Contact Refer anna To Contact [facility] ARMAAN Alford SE, D.O. [address] [place] [phone] Referral ID Status Reason Start Date Expiration Date Visits Requ ested Visits Authorized [id number] Closed 12/12/2020 12/12/2021 1 1 Encounter Details Date Type Department Care Team Description 03/14/2021 Office Visit Department of Internal Rocío sanders Kidney Disease (CKD), Stage 3b Glomerular Filtration Rate (GFR) 30 To 44 ([facility]) (Primary Dx); Medicine in [place], Shayla D .O. Chronic Systolic (Congestive) Heart Fail ure (HCC); [place] [address] Diabetes Mellitus Type 2 Hyperglycemia ( HCC); [address] [place], [place] Diabetes Mellitus Type 2 Wit h Diabetic Neuropathy (HCC); [place] [address] Hypertension Essential Primary; [address] Bronchitis Chronic Simple (H CC); Hyperlipidemia; [phone] Unsteadiness Ga it Disorder Non Orthopedic; (Fax) [...] do you attend confucianism or Never 2021 christianity services? Do you [...] completed or the highest Martin, MEd, LINE CREW SUPERVISOR, CAYDEN) degree you have received? Sex [...] a follow-up. The patient presented to the [facility] [[place], [place]] on 02/25/2021 for acute on chronicHFpEF and acute asthma exacerbation. Due to his hospitalization being in [place] his notes are not in our system [...] (HCC). PLAN: The patient presented to the [facility] [[place], [place]] on 02/25/2021 for acute on chronic HFpEF and acute asthma exacerbation. Due to his hospitalization being in [place] his notes are not in our system [...] Neuropathy (HCC). PLAN: His provider at the [facility] was interested in starting him on a [...] behalf by Sarai Cason, a trained biomedical photographer. The creation of this recordis based on the scribe remotely listening to the visit and the provider's statements to them. This do cument has been checked and approved by the attending provider. Time spent 32 minutes Electronically signed by: Shayla Alford D.O. 03/14/21 2:09 PM CDT documented in this encounter Plan of Treatment Scheduled Referrals Name Type Priority Associated Diagnoses Order S [facility] Internal Outpatient Referral Routine Ex [...] ??If the result does not ma [facility] clinical observations, repeat testing after patient refrains fr om the use of supplements for at least 12 hours. Specimen Anatomical Collection Method Collection Time Receive d Time (Source) Location / / Volume Laterality Blood (Blood, 04/18/2021 9:05 AM 04/18/20 9:06 Venous) CDT AM CDT Shayla Alford D.O. LAB BLOOD ADD-ON Performing Organization Address City/State/ZIP Code Phon e Number [facility] [address] [place] [address] [place] [address] System in [place] [address] [facility] (ABNORMAL) CBC with Differential, Blood (04/18/2021 9:05 AM CDT) [facility] Method Time Signature Hemoglobin 12.2 (L) [...] Number [facility]- [address] [place] [address] [place] [address] System in [place] [address] [place] [address] documented in this encounter Visit Diagnoses Diagnosis [...] D.O. PCP - General Internal Medicine 05/22/[address] [address] documented as of this encounter
--- OUTSIDE RECORDS SUMMARY | 2022-05-28 07:10 | XMS_ITS | Encounter Summary ---
:1945 Author Organization [facility] Address [address] [place] [address] Care Team Providers Name Role Phone Shayla Alford D.O. Primary Care Provider [phone] Reason for Referral Outpatient (Routine) - Closed Specialty Diagnoses / Procedures Referred By Contact Refer red To Contact [facility] Internal ARMAAN Alford SE, D.O. [address] [place] [phone] Referral ID Status Reason Start Date Expiration Date Visits Requ ested Visits Authorized [id number] Closed 04/19/2021 04/19/2022 1 1 Scheduling Instructions Schedule one hour due to complex medical history CHF, diabetes type 2, copd, hip pain , C KD Reason for Visit Reason Comments Med Management Diabetes Mellitus Outpatient (Routine) - Closed Specialty Diagnoses / Procedures Referred By Contact Refer red To Contact [facility] ARMAAN Alford SE, D.O. [address] [place] [phone] Referral ID Status Reason Start Date Expiration Date Visits Requ ested Visits Authorized [id number] Closed 03/14/2021 03/14/2022 1 1 Encounter Details Date Type Department Care Team Description 04/19/2021 Office Visit Department of Internal Rocío sanders Kidney Disease (CKD), Stage 3b Glomerular Filtration Rate (GFR) 30 To 44 ([facility]) (Primary Dx); Medicine in [place], , Shayla D .O. 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 Do you [...] completed or the highest Martin, MEd, MACHINE SPREADER, CAYDEN) degree you have received? Sex Assigned [...] at length management. We did call the [facility] and spoke with both the patient's PCP [place] the [place] [Dr. Johnson Mcnamara] as well as the pharmacist in charge of the diabetes program at the [facility]. We discussed that the patient is not a good candidate for metformin due to decline in kidney function and a GFR of 30 just 3 months ago now back up to 40. We recommended the use of SGLT-2 for kidney and heart benefits. The patient will need to stay with the [facility] in order for him to receive the [employer] Sofya Monitoring Program. They stated that if the patient has his diabetes managed at another clinic, they will take the monitor back. During his hospitalization in [facility], the patient was given oxygen. Today [...] at length management. We did call the [facility] and spokewith both the [facility] [Dr. Johnson Mcnamara] as well as the pharmacist in charge of the diabetes program at the [facility]. We discussed that the patient is not a good candidate for metformin due todecline in kidney function and a GFR of 30 just 3 months ago now back up to 40. We recommended the use of SGLT-2 for kidney and heart benefits. The [facility] need [facility] with [facility] in order for him to receive the [employer] Sofya Monitoring Program. They stated that if [...] managing is ordered today: - Remote monitoring ([facility] Care); Future; Expected date: 04/19/2021 I appreciate [...] behalf by Sarai Cason, a trained medical staff credentialing coordinator. The creation of this recordis based on the scribe remotely listening to the visit and the provider's statements to them. This do cument has been checked and approved by the attending provider. Time spent 62 minutes Electronically signed by: Shayla Alford D.O. 04/20/21 11:01 AM CDT documented in this encounter Plan of Treatment Scheduled Referrals Name Type Priority Associated Diagnoses Order S [facility] Internal Outpatient Referral Routine Ex [...] e Number [facility]- [address] [place] [address] [facility] [place] [address] System in [place] [address] DX Hip And Pelvis [...] documented as of this encounter Care Teams Hoop Maker Machine Relationship Specialty Start Date End Date Shayla Alford D.O. PCP - General Internal Medicine 05/22/[address] [address] documented as of this encounter
--- OUTSIDE RECORDS SUMMARY | 2022-05-28 07:10 | XMS_ITS | Encounter Summary ---
:1945 Author Organization [facility] Address [address] [place] [address] Care Team Providers Name Role Phone Shayla AlfordOMauro Primary Care Provider [phone] Reason for Visit Reason Comments Form Review ID med review Canaglifozin Encounter Details Date Type Department Care Team Description 04/18/2021 Clinical Communication Department of Alexys marin Review ([facility] Internal Medicine Shayla queen, review Mehran rodriguez) in [facility] [address] [place] [phone] Social History Tobacco Use Types Packs/Day Years [...] do you attend taoism or Never 2021 episcopal services? Do you [...] have completed or the highest Martin, MEd, REHABILITATION PHYSICIAN, [place]) degree you have received? Sex Assigned at Date Recorded Male 05/21/2018 2:34 PM CDT documented as of this encounter Miscellaneous Notes Telephone Encounter - Tari Crystal - 04/20/2021 10:28 AM CDT Received back completed form. Form faxed back to the listed facility. Scanned into [facility] Telephone Encounter - Patience Can - 04/18/2021 12:58 PM CDT Form was emailed to Dr. Reid for electronic review/signature. BRASS CHASER:ID PHONE NUMBER: INFO REQUESTEDA med review Eusebia INSTRUCTIONS: fax to [phone] documented in this encounter Plan of Treatment Not on filedocumented as of this encounter Visit Diagnoses Not on filedocumented in this encounter Additional Health Concerns Assessment Noted Time PHQ-9 Depression Total Score: 18 04/28/2018 11:27 AM C DT documented as of this encounter Care Teams Database Modeler Relationship Specialty Start Date End Date Shayla Alford D.O. PCP - General Internal Medicine 05/22/[address] [address] documented as of this encounter
--- OUTSIDE RECORDS SUMMARY | 2022-05-28 07:10 | XMS_ITS | Encounter Summary ---
:1945 Author Organization [facility] Address [address] [place] [address] Care Team Providers Name Role Phone Shayla Alford D.O. Primary Care Provider [phone] Encounter Details Date Type Department Care Team Description 03/21/2021 Hospital Encounter Department of Westley Nguyen [facility] Medication Laboratory Medicine n, Gianna Mcguire in [place], [address] [facility] [phone] Social History Tobacco Use Types Packs/Day [...] do you attend scientology or Never 2021 christianity services? Do you [...] completed or the highest Martin, MEd, SUPERVISOR MATTRESS AND BOXSPRINGS, CAY[place]) degree you have received? Sex Assigned [...] times daily SYRINGE-NEEDLE,INSULIN,0.5 0 ML (INSULIN SYRINGE [facility]) azithromycin (ZITHROMAX) Take 1 tablet [...] Hepatic Function Panel (03/21/2021 9:29 AM CDT) [facility] Method Time Signature Bilirubin, Total, P [...] Phon e Number [facility]- [address] [place] [address] [place] [address] System in [place] [address] documented in this encounter Visit Diagnoses Diagnosis High Risk Medication documented in this encounter Additional Health Concerns Assessment Noted Time PHQ-9 Depression Total Score: 18 04/28/2018 11:27 AM C DT documented as of this encounter Care Teams Extraction Operator Relationship Specialty Start Date End Date Shayla Alford D.O. PCP - General Internal Medicine 05/22/202199 [address] [place] [address] documented as of this encounter
--- OUTSIDE RECORDS SUMMARY | 2022-05-28 07:10 | XMS_ITS | Encounter Summary ---
:1945 Author Organization [facility] Address [address] [place] [address] Care Team Providers Name Role Phone Shayla Alford D.O. Primary Care Provider [phone] Encounter Details Date Type Department Care Team Description 03/02/2021 Clinical Communication Department of Internal Andrei Dejesus Medicine in [place], [place], [place].O Mauro [place] [address] [place] [phone] Social History Tobacco Use Types Packs/Day Years [...] do you attend adventist or Never 2021 jehovah's witness services? Do [...] completed or the highest Martin, MEd, STEEL DETAILER, [place]) degree you have received? Sex [...] Invokana and chart notes faxed to the [place] in [place]. They were also wondering on the order for the home health nurse to come out once a week for a vitalscheck. They want it sent to [facility]. Telephone Encounter - Ai Tellez L.PMauroNMauro [...] for Communication: Patient calling Dr. Madrigal from [facility] wanted you aware that Jonnathan's NT PRO BNP is increased, almost double what it was and he wanted you to be aware. She also mentioned the Invokana is about $650.00 a month which it way too much for them to cover the cost - if you need him to be on Invokana or Trulicity that you should have Dr. Cline from the [place] order it for him andthen it is [...] as of this encounter Care Teams Instructor Dramatic Arts Relationship Specialty Start Date End Date Shayla Alford D.O. PCP - General Internal Medicine 05/22/[address] [phone] documented as of this encounter
--- OUTSIDE RECORDS SUMMARY | 2022-05-28 07:10 | XMS_ITS | Encounter Summary ---
:1945 Author Organization [facility] Address [address] [place] [address] Care Team Providers Name Role Phone Shayla Alford D.O. Primary Care Provider [phone] Encounter Details Date Type Department Care Team Description 04/19/2021 Episode Changes Remote Patient Brenda Conroy Monitoring [facility] [address] [place] [address] Social History Tobacco Use Types Packs/Day Years [...] you attend oriental orthodox or Never 2021 mosque services? Do you [...] completed or the highest Martin, MEd, COMMUNITY HEALTH REPRESENTATIVE, [place]) degree you have received? Sex Assigned at Date Recorded Male 05/21/2018 2:34 PM CDT documented as of this encounter Plan of Treatment Not on filedocumented as of this encounter Visit Diagnoses Not on filedocumented in this encounter Additional Health Concerns Assessment Noted Time PHQ-9 Depression Total Score: 18 04/28/2018 11:27 AM C DT documented as of this encounter Care Teams Weasand Trimmer Relationship Specialty Start Date End Date Shayla Alford D.O. PCP - General Internal Medicine 05/22/[address] [address] documented as of this encounter
--- OUTSIDE RECORDS SUMMARY | 2022-05-28 07:10 | XMS_ITS | Encounter Summary ---
:1945 Author Organization [facility] Address [address] [place] [address] Care Team Providers Name Role Phone Shayla Alford D.O. Primary Care Provider [phone] Reason for Visit Reason Onset Date Comments [...] Conroy Xander ome Call Monitoring K (Completed [place] [facility] Call with patient, [address] (Work) shared info on [place], [place] Remote Monitor [facility] [phone] Terms of Servic e, equipment order ed [...] you attend roman catholic or Never 2021 taoist services? Do you [...] have completed or the highest Martin, MEd, PLUSH FINISHER, [place]) degree you have received? Sex [...] Monitor: [employer] Blood Pressure Monitor model VY-508ICH-Ox (FDA S860175) or Rios Skye Blood Pressure Monitor model H-NM936GWP (FDA Q003996) ? ? Weight Scale: [employer] Weight Scale model XL-700, Rios Skye Weight Scale model 605660, or [employer] Weight Scale model NC-633QLN-Sp ??? Pulse Oximeter: Nonin Pulse Oximeter model 3230 ([facility] [id number]) or Nonin Pulse Oximeter model 9560([facility] [id number]) ? ? Thermometer: [employer] Thermometer model DT-[address] [facility] Basal Thermometer model 08-365 ??? Continuous Monitor: Everion V1 ([facility] [id number]) Remote Monitoring nurses address patient's questions pertaining to use of the equipment at patient'sinitial assessment visit. documented in this encounter Plan of Treatment Not on filedocumented as of this encounter Visit Diagnoses Not on filedocumented in this encounter Additional Health Concerns Assessment Noted Time PHQ-9 Depression Total Score: 18 04/28/2018 11:27 AM C DT documented as of this encounter Care Teams Customer Insight Analyst Relationship Specialty Start Date End Date Shayla Alford D.O. PCP - General Internal Medicine 05/22/[address] [address] documented as of this encounter
--- OUTSIDE RECORDS SUMMARY | 2022-05-28 07:10 | XMS_ITS | Encounter Summary ---
:1945 Author Organization [facility] Address [address] [place] [address] Care Team Providers Name Role Phone Shayla Alford D.O. Primary Care Provider [phone] Reason for Visit Reason Comments consult request Encounter Details Date Type Department Care Team Description 03/09/2021 Clinical Jesus Cruz, consul t request Communication Center for Philip Todd Clinical Regeneration [address] [facility] in [place], [place] [address] [place] [address] [place], [place] [phone] (Work) [phone] Social History Tobacco Use Types Packs/Day Years [...] completed or the highest Martin, MEd, CAREER RESOURCE SPECIALIST, [place]) degree you have received? Sex [...] back to the [facility] in [place] for follow-up. Disposition/Recommendation: recommended continue engagement in [...] documented as of this encounter Care Teams Supply Tech Relationship Specialty Start Date End Date Shayla Alford D.O. PCP - General Internal Medicine 05/22/20 [address], [place] [address] documented as of this encounter
--- OUTSIDE RECORDS SUMMARY | 2022-05-28 07:10 | XMS_ITS | Encounter Summary ---
:1945 Author Organization [facility] Address [address] [place] [address] Care Team Providers Name Role Phone Shayla Alford D.O. Primary Care Provider [phone] Encounter Details Date Type Department Care Team Description 04/18/2021 Hospital Encounter Department of [facility], Chronic Kidney Disease (CKD), Stage 3b Glomerular Filtration Rate (GFR) 30 To 44 (HCC); Laboratory Medicine [facility]ateek Torres [facility] [address] [facility] [address] [place] [phone] Social History Tobacco Use Types Packs/Day Years [...] do you attend protestant or Never 2021 synagogue services? Do you [...] have completed or the highest Martin, MEd, DUPLEX TRIMMER, [place]) degree you have received? Sex [...] PEN NEEDLE, DIABETIC Yani Fine 30 0 [facility] disposable needles. For use with Insulin Pens, 4 times daily SYRINGE-NEEDLE,INSULIN,0 0 .5 ML (INSULIN SYRINGE [facility]) budesonide-formoteroL Inhale 2 puffs daily 0 10/0 [...] Albumin, Random, Urine (04/18/2021 9:04 AM CDT) [facility] gist Method Time Signature Microalbumin 149.0 mg/L [...] [facility]- [address] [place] [address] [place] [address] System in [place] [address] (ABNORMAL) Urinalysis with Microscopic: [...] 8.0 04/18/2021 9:23 AM CDT [place] Specific [place] 1.009 1.001 - 1.035 04/18/2021 9:23 AM [...] [facility]- [address] [place] [address] [place] [place] [address] System in [place] [address] documented in this encounter Visit Diagnoses Diagnosis Chronic Kidney Disease (CKD), Stage 3b G lomerular Filtration Rate (GFR) 30 To 44 (HCC) Hypertension Essential Primary documented in this encounter Additional Health Concerns Assessment Noted Time PHQ-9 Depression Total Score: 18 04/28/2018 11:27 AM C DT documented as of this encounter Care Teams Scrap Cutter Relationship Specialty Start Date End Date Shayla Alford D.O. PCP - General Internal Medicine 05/22/202199 [place] [address] documented as of this encounter
--- OUTSIDE RECORDS SUMMARY | 2022-05-28 07:10 | XMS_ITS | Encounter Summary ---
:1945 Author Organization [facility] Address [address] [place] [address] Care Team Providers Name Role Phone Shayla Alford D.O. Primary Care Provider [phone] Encounter Details Date Type Department Care Team Description 03/02/2021 Hospital Encounter Department of Alexys Diabete s Mellitus Type 2 Hyperglycemia (HCC); Radiology in , [facility], Cough; [place], [place] D.O. 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 Do you [...] have completed or the highest Martin, MEd, SDE, [place]) degree you have received? Sex Assigned [...] documented as of this encounter Care Teams Deburr Operator Relationship Specialty Start Date End Date Shayla Alford D.O. PCP - General Internal Medicine 05/22/[address] [phone] documented as of this encounter
--- OUTSIDE RECORDS SUMMARY | 2022-05-28 07:10 | XMS_ITS | Encounter Summary ---
:1945 Author Organization [facility] Address [address] [place] [address] Care Team Providers Name Role Phone Shayla Alford D.O. Primary Care Provider [phone] Encounter Details Date Type Department Care Team Description 03/12/2021 Clinical Communication Department of Internal Andrei Dejesus Medicine in [place], [place], [place].O Mauro [place] [address] [place] [phone] Social History Tobacco Use Types Packs/Day Years [...] completed or the highest Martin, MEd, GLUING CREW LEADER, [place]) degree you have received? [...] as of this encounter Care Teams Service Observer Chief Relationship Specialty Start Date End Date Shayla Alford D.O. PCP - General Internal Medicine 05/22/20 [address] [place] [address] documented as of this encounter
--- OUTSIDE RECORDS SUMMARY | 2022-05-28 07:10 | XMS_ITS | Encounter Summary ---
:1945 Author Organization [facility] Address [address] [place] [address] Care Team Providers Name Role Phone Shayla Alford D.O. Primary Care Provider [phone] Reason for Visit Reason Comments Medical Information Encounter Details Date Type Department Care Team Description 04/19/2021 Clinical Communication Department of Alexys Wheeler [facility] Information Internal Medicine en, Shayla in [place] [address] [place] [phone] Social History Tobacco [...] do you attend worship or Never 2021 mandaeism services? Do you belong to any clubs or No 10/09/2021 organizations such as worship groups, unions, fraTuxebo or athletic groups, or school groups? How [...] completed or the highest Martin, MEd, MORTGAGE FUNDER, [place]) degree you have received? Sex Assigned at Date Recorded Male 05/21/2018 2:34 PM CDT documented as of this encounter Miscellaneous Notes Telephone Encounter - Kayli Rivera LMauroP.N. - 04/19/2021 1:55 PM CDT Fax order to [phone]. Telephone Encounter - Raheem Patel - 04/19/2021 11:36 AM CDT Reason for Communication: Patients Diallo called and she wanted to give jacki the info for theoxygen supplier. [facility]. [address] [place] [address] is the info she gave Current Can [...] documented as of this encounter Care Teams Surgeon Partner Relationship Specialty Start Date End Date Shayla Alford D.O. PCP - General Internal Medicine 05/22/[address] [address] documented as of this encounter
--- OUTSIDE RECORDS SUMMARY | 2022-05-28 07:10 | XMS_ITS | Encounter Summary ---
:1945 Author Organization [facility] Address [address] [place] [address] Care Team Providers Name Role Phone Shayla Alford D.O. Primary Care Provider [phone] Encounter Details Date Type Department Care Team Description 04/18/2021 Hospital Encounter Department of Westley Chroni c Kidney Disease (CKD), Stage 3b Glomerular Filtration Rate (GFR) 30 To 44 (HCC); Laboratory Medicine nShayla D. O. Chronic Systolic (Congestive) Heart Fail ure (HCC); in [place], [address] Hypertension Es sential Primary [facility] [address] [place] [phone] Social History Tobacco Use [...] do you attend mormonism or Never 2021 sikh services? Do you [...] completed or the highest Martin, MEd, INSULATION EXTRUDER OPERATOR, [place]) degree you have received? Sex [...] [facility]) budesonide-formoteroL Inhale [...] e Number [facility]- [address] [place] [address] [facility] [place] [address] [facility] [address] (ABNORMAL) Renal [...] eGFR-Black/Afri 47 (L) >=60 04/18/2021 OW[place] can [place] mL/min/BSA 9:31 AM CDT Comment: ----ADDITIONAL INFORMATION---- Estimated GFR calculated using the 2009 CKD_EPI creatinine equation. eGFR Non-Black/ 40 (L) >=60 mL/min/BSA 04/18/2021 9:31 AM CDT [place] Comment: ----ADDITIONAL INFORMATION---- Estimated GFR calculated using [...] 4:31 Venous) CDT PM CDT Narrative [facility] - 04/18/2021 4:50 PM CDT Specimen Information: Specimen ID: [id number] Specimen Type: Blood Specimen Collection Start Date: 04/18/20 ??9:05 AM Specimen Received Date: 04/18/2021 ??4:3 1 PM Specimen ID: [id number] Specimen Type: Blood Specimen Collection Start Date: 04/18/20 ??9:05 AM Specimen Received Date: 04/18/2021 ??9:0 6 AM Melissa Blackmon LAB BLOOD ADD-ON Performing Organization Address City/State/ZIP Code Phon e Number [facility]- [address] [place] [address] [place] [address] System in [place] [address] [place] [address] [facility] [address] (ABNORMAL) NT-Pro [...] Number [facility]- [address] [place] [address] [place] [address] System in [place] [address] (ABNORMAL) CBC with Differential, Blood (04/18/2021 9:05 AM CDT) [facility] Method Time Signature Hemoglobin 12.2 (L) [...] e Number [facility]- [address] [address] [facility] [place] [address] System in [place] [address] [facility] documented in this encounter Visit Diagnoses Diagnosis Chronic Kidney Disease (CKD), Stage 3b G lomerular Filtration Rate (GFR) 30 To 44 (HCC) Chronic Systolic (Congestive) Heart Fail ure (HCC) Hypertension Essential Primary documented in this encounter Additional Health Concerns Assessment Noted Time PHQ-9 Depression Total Score: 18 04/28/2018 11:27 AM C DT documented as of this encounter Care Teams Pre Certification Specialist Relationship Specialty Start Date End Date Shayla Alford D.O. PCP - General Internal Medicine 05/22/[address] [place] [address] documented as of this encounter
--- OUTSIDE RECORDS SUMMARY | 2022-05-28 07:10 | XMS_ITS | Encounter Summary ---
:1945 Author Organization [facility] Address [address] [place] [address] Care Team Providers Name Role Phone Shayla Alford D.O. Primary Care Provider [phone] Reason for Referral Outpatient (Routine) - Closed Specialty Diagnoses / Procedures Referred By Contact Refer red To Contact Nephrology and Melissa Ferrer [place] [facility] Hypertension M.BMauroBMauroS. [address] [place] [address] Referral ID Status Reason Start Date Expiration Date Visits Requ ested Visits Authorized [id number] Closed 04/12/2021 04/12/2022 1 1 Scheduling Instructions 2 pm please Outpatient (Routine) - Closed Specialty Diagnoses / Procedures Referred By Contact Refer red To Contact Diagnoses Chronic Kidney Disease (CKD), Stage 3b Glomerular Filtration Rate (GFR) 30 To 44 (HCC) Hypertension Essential Primary Melissa Ferrer M.B.B.S. [facility] Procedures US Kidneys with Renal Artery Doppler [address] [place] [address] Referral ID Status Reason Start Date Expiration Date Visits Requ ested Visits Authorized [id number] Closed 04/12/2021 04/12/2022 1 1 Reason for Visit Reason Comments Chronic Kidney Disease Hypertension Outpatient (Routine) - Closed Specialty Diagnoses / Procedures Referred By Contact Refer red To Contact Nephrology and Diagnoses Diabetes Mellitus Type 2 With Diabetic Chronic Kidney Disease Hyperglycemic (HCC) Chronic Kidney Disease (CKD), Stage 3b Glomerular Filtration Rate (GFR) 30 To 44 (HCC) Anemia In Chronic Kidney Disease [facility] Hypertension Tulio Mcguire [address] [place] [address] Referral ID Status Reason Start Date Expiration Date Visits Requ ested Visits Authorized [id number] Closed 02/13/2021 02/13/2022 1 1 Encounter Details Date Type Department Care Team Description 04/12/2021 Comprehensive Visit Division of Prateek Ferrer Essential Primary (Primary Dx); Nephrology and Melissa, Diabetes Cleo itus Type 2 With Diabetic Chronic Kidney Disease Hyperglycemic (HCC); Hypertension in M.B.B.S. Chronic Kidney Disease (CKD), Stage 3b G lomerular Filtration Rate (GFR) 30 To 44 (HCC); [place], [place] [address] Anemia In Chronic Kidney Dis ease [address] [facility], [address] [place] [phone] Social History Tobacco Use Types Packs/Day Years [...] do you attend mormon or Never 2021 mormonism services? Do you belong to any clubs or No 10/09/2021 organizations such as mormon groups, unions, fraVALIANT HEALTH or athletic groups, or school groups? How [...] have completed or the highest Martin, MEd, AEROBICS INSTRUCTOR, CAYDEN) degree you have received? Sex [...] has struggled with obtaining this from the [place] and he will reach out to his primary care physician so that this can be taken care of. I recommended that they also reach out to the MA diabetic specialist and get an appointment with [...] characteri stics were determined by [facility] in a manner co nsistent with [...] [facility] [address] [place], [place] [address] [facility] [place] [address] [facility] [address] (ABNORMAL) Urinalysis with [...] Number [facility] - [address] [place], [place] [address] [facility] [place] [address] [facility] [address] US Kidneys with Renal [...] Number [facility]- [address] [place], [place] [id number] [place] [address] LAB AUST [facility] - [place], [place] [phone] [place] [address] (ABNORMAL) Renal Function [...] eGFR-Black/Afri 47 (L) >=60 04/18/2021 [place] can Jamaican mL/min/BSA 9:31 AM CDT Comment: ----ADDITIONAL INFORMATION---- Estimated GFR calculated using the 2009 CKD_EPI creatinine equation. eGFR Non-Black/ 40 (L) >=60 mL/min/BSA 04/18/2021 9:31 AM CDT OW[place] Jamaican Comment: ----ADDITIONAL INFORMATION---- Estimated GFR calculated using [...] 04/18/20 4:31 Venous) CDT PM CDT Narrative [facility] - 04/18/2021 4:50 PM CDT Specimen Information: Specimen ID: [id number] Specimen Type: Blood Specimen Collection Start Date: 04/18/20 ??9:05 AM Specimen Received Date: 04/18/2021 ??4:3 1 PM Specimen ID: [id number] Specimen Type: Blood Specimen Collection Start Date: 04/18/20 ??9:05 AM Specimen Received Date: 04/18/2021 ??9:0 6 AM Melissa Blackmon LAB BLOOD ADD-ON Performing Organization Address City/State/ZIP Code Phon e Number [facility]- [address] [place] [address] [place] [address] System in [place] [address] [place] [address] [facility] [address] (ABNORMAL) Albumin, Random, [...] [facility] [address] [place] [address] [place] [address] System in [place] [address] (ABNORMAL) Urinalysis with Microscopic: [...] 8.0 04/18/2021 9:23 AM CDT [place] Specific [place] 1.009 1.001 - 1.035 04/18/2021 9:23 AM [...] Number [facility]- [address], [place] [address] [facility] [place] [address] System in [place] [facility] documented in this encounter [...] as of this encounter Care Teams Sales Account Associate Relationship Specialty Start Date End Date Shayla Alford D.O. PCP - General Internal Medicine 05/22/[address] [place] [address] documented as of this encounter
--- OUTSIDE RECORDS SUMMARY | 2022-05-28 07:10 | XMS_ITS | Encounter Summary ---
:1945 Author Organization [facility] Address [address] [place] [address] Care Team Providers Name Role Phone Shayla Alford D.O. Primary Care Provider [phone] Reason for Visit Outpatient (Routine) - Closed Specialty Diagnoses / Procedures Referred By Contact Refer red To Contact Pulmonary Medicine Diagnoses Cough Unspecified Type Dyspnea Multifactorial Asthma Extrinsic Moderate (HCC) [facility] Shayla D.Sabrina [address], [place] [address] Referral ID Status Reason Start Date Expiration Date Visits V isits Requested Authorized [id number] Closed Specialty 03/02/2021 03/02/2022 1 1 Services Required Encounter Details Date Type Department Care Team Description 03/09/2021 Comprehensive Visit Division of Specks, Cough; Pulmonary Medicine Pato Lr Dyspnea Multifactorial; in [place], [facility] [address] [facility] Asthma Extrinsic Moderate (HCC) [place], [place] [address] [facility] [address] [place], [place] [phone] (Work) [phone] Social History Tobacco Use Types Packs/Day Years [...] do you attend yarsanism or Never 2021 taoism services? Do you [...] have completed or the highest Martin, MEd, BAR WELDER, CAYDEN) degree you have received? Sex [...] SUBJECTIVE Referred by: Shayla Alford D.O. [address] [address] CHIEF COMPLAINT / REASON FOR VISIT Mr. [...] to an agent orange exposure in the [place]. He has been followed for his [...] 24 hours in the local hospital in [facility] due to balance problems and a [...] documented as of this encounter Care Teams Rides Supervisor Relationship Specialty Start Date End Date Shayla Alford D.O. PCP - General Internal Medicine 05/22/[address] [place] [address] documented as of this encounter
--- OUTSIDE RECORDS SUMMARY | 2022-05-28 07:10 | XMS_ITS | Encounter Summary ---
:1945 Author Organization [facility] Address [address] [place] [address] Care Team Providers Name Role Phone Shayla Alford D.O. Primary Care Provider [phone] Encounter Details Date Type Department Care Team Description 03/02/2021 Clinical Communication Department of Internal Andrei Dejesus Medicine in [place], [place], [place].O Mauro [place] [address] [place] [phone] Social History Tobacco Use Types Packs/Day Years [...] have completed or the highest Martin, MEd, TELEGRAPH OPERATOR, CAYDEN) degree you have received? Sex [...] documented as of this encounter Care Teams Demographic Analyst Relationship Specialty Start Date End Date Shayla Alford D.O. PCP - General Internal Medicine 05/22/[address] [phone] documented as of this encounter
--- OUTSIDE RECORDS SUMMARY | 2022-05-28 07:10 | XMS_ITS | Encounter Summary ---
:1945 Author Organization [facility] Address [address] [place] [address] Care Team Providers Name Role Phone Shayla Alford D.OMauro Primary Care Provider [phone] Encounter Details Date Type Department Care Team Description 03/02/2021 Hospital Encounter Department of Alexys Cough; Laboratory Medicine Shayla queen, Dyspnea Multifactorial in [place], D.O. [place] [address] [place] [phone] Social History Tobacco Use Types Packs/Day [...] do you attend rastafarian or Never 2021 restoration services? Do you [...] completed or the highest Martin, MEd, MERCHANDISE WORKER, CAYDEN) degree you have received? Sex [...] (FREESTYLE SOFYA) times a day. Use to [facility] scan Sofya sensor 5 times daily and [...] NEEDLE, DIABETIC Yani Fine 30 0 [facility] disposable needles. For use with Insulin Pens, 4 times daily SYRINGE-NEEDLE,INSULIN,0 0 .5 ML (INSULIN SYRINGE [facility]) azithromycin (ZITHROMAX) Take 1 tablet (500 5 [...] with Differential, Blood (03/02/2021 12:59 PM CDT) [facility] Method Time Signature Hemoglobin 11.9 (L) [...] Phon e Number [facility]- [address] [place] [address] [place] [address] System in [place] [address] [place] [address] documented in this encounter Visit Diagnoses Diagnosis Cough Unspecified Type Dyspnea Multifactorial documented in this encounter Additional Health Concerns Assessment Noted Time PHQ-9 Depression Total Score: 18 04/28/2018 11:27 AM C DT documented as of this encounter Care Teams Operations Planner Relationship Specialty Start Date End Date Shayla Alford D.O. PCP - General Internal Medicine 05/22/[address] [address] documented as of this encounter
--- OUTSIDE RECORDS SUMMARY | 2022-05-28 07:10 | XMS_ITS | Encounter Summary ---
:1945 Author Organization [facility] Address [address] [place] [address] Care Team Providers Name Role Phone Shayla Alford D.O. Primary Care Provider [phone] Reason for Visit Reason Comments Follow-up Encounter Details Date Type Department Care Team Description 03/09/2021 Clinical Communication Manuel Shabazz Follow-up Center for Pato Barber Transplantation and [address] [place] [address] Clinical [facility] in [place], [place] [address] [place] [address] [place] [address] (Work) [phone] Social History Tobacco Use Types Packs/Day Years [...] do you attend gnosticism or Never 2021 zoroastrian services? Do you [...] have completed or the highest Martin, MEd, VISUAL JOURNALIST, CAYDEN) degree you have received? Sex Assigned at Date Recorded Male 05/21/2018 2:34 PM CDT documented as of this encounter Plan of Treatment Not on filedocumented as of this encounter Visit Diagnoses Not on filedocumented in this encounter Additional Health Concerns Assessment Noted Time PHQ-9 Depression Total Score: 18 04/28/2018 11:27 AM C DT documented as of this encounter Care Teams Cable Machine Operator Relationship Specialty Start Date End Date Shayla Alford D.O. PCP - General Internal Medicine 05/22/[address] [phone] documented as of this encounter
--- OUTSIDE RECORDS SUMMARY | 2022-05-28 07:10 | XMS_ITS | Encounter Summary ---
:1945 Author Organization [facility] Address [address] [place] [address] Care Team Providers Name Role Phone Shayla Alford D.O. Primary Care Provider [phone] Encounter Details Date Type Department Care Team Description 04/19/2021 Episode Changes Remote Patient Brenda Conroy Monitoring [facility] [address] [place] [address] Social History Tobacco Use Types Packs/Day Years [...] do you attend congregational or Never 2021 church services? Do you [...] completed or the highest Martin, MEd, EMPLOYMENT ADVISOR, CAYDEN) degree you have received? Sex Assigned at Date Recorded Male 05/21/2018 2:34 PM CDT documented as of this encounter Plan of Treatment Not on filedocumented as of this encounter Visit Diagnoses Not on filedocumented in this encounter Additional Health Concerns Assessment Noted Time PHQ-9 Depression Total Score: 18 04/28/2018 11:27 AM C DT documented as of this encounter Care Teams Insurance Policy Issue Clerk Relationship Specialty Start Date End Date Shayla Alford D.O. PCP - General Internal Medicine 05/22/[address] [phone] documented as of this encounter
--- OUTSIDE RECORDS SUMMARY | 2022-05-28 07:11 | XMS_ITS | Encounter Summary ---
:1945 Author Organization [facility] Address [address] [place] [address] Care Team Providers Name Role Phone Shayla Alford D.O. 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 [place] [facility] [place] [phone] Social History Tobacco Use Types Packs/Day Years [...] completed or the highest Martin, MEd, MOLD YARD SUPERVISOR, CAYDEN) degree you have received? Sex [...] by mouth tabletIndications: daily. 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 Chronic Kidney Disease [...] eGFR-Black/Afri 37 (L) >=60 02/13/2021 [place] can [place] mL/min/BSA 10:43 AM CDT Comment: ----ADDITIONAL INFORMATION---- Estimated GFR calculated using the 2009 CKD_EPI creatinine equation. eGFR Non-Black/ 32 (L) >=60 mL/min/BSA 02/13/2021 10:43 AM CDT OW[place] Comment: ----ADDITIONAL INFORMATION---- Estimated GFR calculated [...] Number [facility]- [address] [place] [address] [facility] [place] [place] [address] System in [place] [address] (ABNORMAL) Hemoglobin A1c (02/13/2021 [...] Code Phon e Number [facility]- [address] [place] [address] [place] [address] System in [place] [address] documented in this encounter Visit [...] as of this encounter Care Teams Corn Cooker Relationship Specialty Start Date End Date Shayla Alford D.O. PCP - General Internal Medicine 05/22/[address]199 [place] [address] documented as of this encounter
--- OUTSIDE RECORDS SUMMARY | 2022-05-28 07:11 | XMS_ITS | Encounter Summary ---
:1945 Author Organization [facility] Address [address] [place] [address] Care Team Providers Name Role Phone Shayla Alford D.O. Primary Care Provider [phone] Reason for Visit Reason Comments Follow-up Encounter Details Date Type Department Care Team Description 02/23/2021 Clinical Communication Department of Renan Linjayne Cardiovascular Medicine Erica Barber R.N. in [facility] [phone] [address] [facility] (Work) [place] [address] Social History Tobacco Use Types Packs/Day [...] do you attend yazidi or Never 2021 yazidi services? Do you [...] have completed or the highest Martin, MEd, CINNAMON GRINDER, CAYDEN) degree you have received? Sex [...] up lab follow up for 03/01/2021 at [facility]. Mr. Costa , and his , Diallo-reviewed [...] PLAN Labs scheduled for 9:00 a.m. at [facility] on 03/01/2021. Patient reports he will belt picker the prescriptions this morning from his [...] failure. Biotin has been identified by the [facility] as a potential interfering substance. ??Higher concentr ations of biotin may be found in multivitamins, hair/nail supple ments, and workout supplements. ??If the result does not [facility] clinical observations, repeat testing after patient refrains fr om the use of supplements for at least 12 hours. Specimen Anatomical Collection Method Collection Time Receive d Time (Source) Location / / Volume Laterality Blood (Blood, 03/01/2021 12:20 03/01/2021 Venous) PM CDT 12:25 PM CDT Manuel Evans M.D. LAB BLOOD ADD-ON Performing Organization Address City/State/ZIP Code Phon e Number [facility]- [address] [place] [address] [place] [address] System in [place] [address] Sodium (03/01/2021 12:20 [...] Phon e Number [facility]- [address] [place] [facility] [place] [address] [place] [address] System in [place] [address] Potassium (03/01/2021 12:20 [...] Phon e Number [facility]- [address] [place] [place] [address] [facility] [place] [place] [address] System in [place] [address] (ABNORMAL) Creatinine with Estimated GFR (03/01/2021 12:20 PM CDT) Analysis Performed At Patho logist Time Signature Creatinine 1.56 (H) 0.74 - 03/01/2021 [place] 1.35 mg/dL 12:59 PM CDT eGFR-Black/Afri 49 (L) >=60 03/01/2021 OW[place] can [place] mL/min/BSA 12:59 PM CDT Comment: ----ADDITIONAL INFORMATION---- Estimated GFR calculated using the 2009 CKD_EPI creatinine equation. eGFR Non-Black/ 42 (L) >=60 mL/min/BSA 03/01/2021 12:59 PM CDT [place] Comment: ----ADDITIONAL INFORMATION---- Estimated GFR calculated using the 2009 CKD_EPI creatinine equation. Specimen Anatomical Collection Method Collection Time Receive d Time (Source) Location / / Volume Laterality Blood (Blood, 03/01/2021 12:20 03/01/2021 Venous) PM CDT 12:25 PM CDT Manuel Evans M.D. LAB BLOOD ADD-ON Performing Organization Address City/State/ZIP Code Phon e Number [facility]- [address] [place] [facility] [address] [place] [address] System in [place] [address] (ABNORMAL) BUN (Blood Urea [...] M.D. LAB BLOOD ADD-ON Performing Organization Address City/[facility]/ZIP Code Phon e Number [facility]- [address] [place] [address] [facility] [place] [address] System in [place] [address] documented in this encounter [...] - General Internal Medicine 05/22/[address] [place] [address] documented as of this encounter
--- OUTSIDE RECORDS SUMMARY | 2022-05-28 07:11 | XMS_ITS | Encounter Summary ---
:1945 Author Organization [facility] Address [address] [place] [address] Care Team Providers Name Role Phone Shayla Alford D.O. Primary Care Provider [phone] Encounter Details Date Type Department Care Team Description 03/01/2021 Hospital Encounter Department of Manuel Evans Systolic Laboratory Medicine Pato Barber (Congestive) Heart in [place], [facility] [address] [facility] Failure (HCC) [place], [place] [address] [address] [place], [place] [phone] [address] (Work) [phone] Social History Tobacco Use Types Packs/Day Years [...] do you attend christian or Never 2021 amish services? Do you [...] completed or the highest Martin, MEd, MERCHANDISE FLOW TEAM LEADER, CAYDEN) degree you have received? [...] Address City/State/ZIP Code Phon e Number - [address] [place] [address] [place] [facility] [address] System in [place] [address] Sodium (03/01/2021 12:20 PM [...] Address City/State/ZIP Code Phon e Number - [address] [place] [address] [place] [facility] [place] [address] System in [place] [address] Potassium (03/01/2021 12:20 PM [...] Address City/State/ZIP Code Phon e Number - [address] [place] [address] [place] [address] [facility] [address] System in [place] [address] (ABNORMAL) Creatinine with Estimated GFR (03/01/2021 12:20 PM CDT) Analysis Performed At Patho logist Time Signature Creatinine 1.56 (H) 0.74 - 03/01/2021 [place] 1.35 mg/dL 12:59 PM CDT eGFR-Black/Afri 49 (L) >=60 03/01/2021 [place] can [place] mL/min/BSA 12:59 PM CDT Comment: ----ADDITIONAL INFORMATION---- Estimated GFR calculated using the 2009 CKD_EPI creatinine equation. eGFR Non-Black/ 42 (L) >=60 mL/min/BSA 03/01/2021 12:59 PM CDT [place] Comment: ----ADDITIONAL INFORMATION---- Estimated GFR calculated using the 2009 CKD_EPI creatinine equation. Specimen Anatomical Collection Method Collection Time Receive d Time (Source) Location / / Volume Laterality Blood (Blood, 03/01/2021 12:20 03/01/2021 Venous) PM CDT 12:25 PM CDT Manuel Evans M.D. LAB BLOOD ADD-ON Performing Organization Address City/State/ZIP Code Phon e Number - [address] [place] [address] [place] [address] System in [place] [address] (ABNORMAL) BUN (Blood Urea [...] Address City/State/ZIP Code Phon e Number - [address] [place] [address] [place] [address] System in [place] [address] [facility] documented in this encounter Visit Diagnoses Diagnosis Chronic Systolic (Congestive) Heart Fail ure (HCC) documented in this encounter Additional Health Concerns Assessment Noted Time PHQ-9 Depression Total Score: 18 04/28/2018 11:27 AM C DT documented as of this encounter Care Teams Technical Support Manager Relationship Specialty Start Date End Date Shayla Alford D.O. PCP - General Internal Medicine 05/22/[address] [phone] documented as of this encounter
--- OUTSIDE RECORDS SUMMARY | 2022-05-28 07:11 | XMS_ITS | Encounter Summary ---
:1945 Author Organization [facility] Address [address] [place] [address] Care Team Providers Name Role Phone Shayla Alford D.O. Primary Care Provider [phone] Encounter Details Date Type Department Care Team Description 02/01/2021 Clinical Communication Department of Internal Neto Wnog, Medicine in [place] [address] [place] [phone] Social History Tobacco Use Types Packs/Day [...] do you attend restoration or Never 2021 nondenominational services? Do you [...] have completed or the highest Martin, MEd, TITLE SEARCHER, CAYDEN) degree you have received? Sex Assigned at Date Recorded Male 05/21/2018 2:34 PM CDT documented as of this encounter Miscellaneous Notes Telephone Encounter - Yannick Raza L.P.N. - 02/01/2021 11:15 AM CDT Name of person contacted: Patient Relationship to patient: Not applicable Call back number: As listed in his chart Softball Coach: Not applicable Information provided: Aware of lab results per DR. Wong doorperson or luggage porter/patient received and understood education/information provided: Yes doorperson or luggage porter/patient agreed to the Plan of Care: Yes [...] documented as of this encounter Care Teams Ply Bander Relationship Specialty Start Date End Date Shayla Alford D.O. PCP - General Internal Medicine 05/22/[address] [phone] documented as of this encounter
--- OUTSIDE RECORDS SUMMARY | 2022-05-28 07:11 | XMS_ITS | Encounter Summary ---
:1945 Author Organization [facility] Address [address] [place] [address] Care Team Providers Name Role Phone Shayla Alford D.O. Primary Care Provider Encounter Details Date Type Department Care Team Description 02/23/2021 Clinical Communication Department of Internal Andrei Dejesus Medicine in [place], [place], [place].O Mauro [place] [address] [place] [phone] Social History Tobacco Use Types Packs/Day Years [...] do you attend advent or Never 2021 catholic services? Do you [...] have completed or the highest Martin, MEd, INDUCTION MACHINE OPERATOR, CAYDEN) degree you have received? [...] medication. Patient stated that his provider in [place] changed his medications. Please call patient back [...] documented as of this encounter Care Teams Kindergarten Tutor Relationship Specialty Start Date End Date Shayla Alford D.O. PCP - General Internal Medicine 05/22/[address] [phone] documented as of this encounter
--- OUTSIDE RECORDS SUMMARY | 2022-05-28 07:11 | XMS_ITS | Encounter Summary ---
:1945 Author Organization [facility] Address [address] [place] [address] Care Team Providers Name Role Phone Shayla Alford D.O. Primary Care Provider Reason for Referral Outpatient (Routine) - Closed Specialty Diagnoses / Procedures Referred By Contact Refer red To Contact Diagnoses Chronic Systolic (Congestive) Heart Failure (HCC) Beat Premature Ventricular Manuel Evans M.D. [facility] Procedures ECG Heart Rhythm Monitor (Holter) [address] [place] [address] Referral ID Status Reason Start Date Expiration Date Visits Requ ested Visits Authorized [id number] Closed 02/01/2021 02/01/2022 1 1 Outpatient (Routine) - Closed Specialty Diagnoses / Procedures Referred By Contact Refer anna To Contact Cardiovascular Disease Manuel Evans [facility] Felicita Whyte [address] [place] [address] Referral ID Status Reason Start Date Expiration Date Visits Requ ested Visits Authorized [id number] Closed 02/01/2021 02/01/2022 1 1 Reason for Visit Reason Comments Questioning amiodarone dose/wants 3-month appt Encounter Details Date Type Department Care Team Description 01/31/2021 Clinical Department of Shona Evans Cardiovascular Manuel Barber amiodarone Medicine in M.D. dose/wants 3-month [place], [place] 200 [facility] appt 200 [place] [address] [phone] Social History Tobacco Use Types Packs/Day Years [...] do you attend anabaptist or Never 2021 jain services? Do you [...] have completed or the highest Martin, MEd, ANESTHESIOLOGIST ASSISTANT CERTIFIED, CAYDEN) degree you have received? Sex Assigned [...] expects communication via portal: No Phone number: [phone] Request topic and what needs to be [...] encounter Results HOLTER MONITOR - IN CLINIC BUTTON MAKER AND INSTALLER (02/21/2021 8:20 AM CDT) [facility] gist Method Time Signature Min Heart Rate 52 bpm HOLTER SENTINEL AF Count 0 count HOLTER SENTINEL SVE Max Per [id number] HOLTER Hour Time SENTINEL Tachycardia 0 count HOLTER Runs SENTINEL SVE Total 80 count HOLTER Beats SENTINEL Mean Heart 68 bpm HOLTER Rate SENTINEL SVT Runs 0 count HOLTER SENTINEL VT Runs 0 count HOLTER SENTINEL Bradycardia 0 count HOLTER Runs SENTINEL Min Heart Rate [id number] HOLTER Time SENTINEL Max Heart Rate [id number] HOLTER Time SENTINEL Max Heart Rate 93 bpm HOLTER SENTINEL SVE Max Per 11 count HOLTER Hour SENTINEL SVE Percent 0 percent HOLTER Beats SENTINEL Recording Date [id number] HOLTER SENTINEL VE Max Per [id number] HOLTER Hour Time SENTINEL Holter Pauses 0 [...] SENTINEL HOLTER SENTINEL NA (ABNORMAL) Thyroid Function Mary Esther (02/20/2021 11:09 AM CDT) P athologist Signature [...] Phon e Number [facility]- [address] [place] [address] [place] [address] System in [place] [address] documented in this encounter Visit Diagnoses Diagnosis Chronic Systolic (Congestive) Heart Fail ure (HCC) - Primary Beat Premature Ventricular Hypothyroidism documented in this encounter Additional Health Concerns Assessment Noted Time PHQ-9 Depression Total Score: 18 04/28/2018 11:27 AM C DT documented as of this encounter Care Teams Real Estate Professor Relationship Specialty Start Date End Date Shayla Alford D.O. PCP - General Internal Medicine 05/22/[address] [place] [address] documented as of this encounter
--- OUTSIDE RECORDS SUMMARY | 2022-05-28 07:11 | XMS_ITS | Encounter Summary ---
:1945 Author Organization [facility] Address [address] [place] [address] Care Team Providers Name Role Phone Shayla Alford D.O. Primary Care Provider [phone] Reason for Referral Outpatient (Routine) - Closed Specialty Diagnoses / Procedures Referred By Contact Refer red To Contact Pulmonary Medicine Diagnoses Cough Unspecified Type Dyspnea Multifactorial Asthma Extrinsic Moderate (HCC) [facility] [place] [facility] Tulio Mcguire [address] [place] [address] Referral ID Status Reason Start Date Expiration Date Visits V isits Requested Authorized [id number] Closed Specialty 03/02/2021 03/02/2022 1 1 Services Required Reason for Visit Reason Comments Post Hospital Follow-up CHF-exacerbation Appointment Request (Routine) - Closed Specialty Diagnoses / Procedures Referred By Contact Refer red To Contact Community Internal Medicine Referral ID Status Reason Start Date Expiration Date Visits Requ ested Visits Authorized [id number] Closed 02/27/2021 02/27/2022 1 1 Encounter Details Date Type Department Care Team Description 03/02/2021 Office Visit Department of Internal Rocío Di abetes Mellitus Type 2 Hyperglycemia (HCC) (Primary Dx); Medicine in [facility] Coleman Mcguire Cough; [place] [address] Dyspnea Multifactorial; [address] [place], [place] Asthma Extrinsic Moderate (H CC); [place] [address] Chronic Systolic (Congestive) Heart Fail ure (HCC); [address] Hypothyroidism; Pancreatitis Chronic Recurrent (HCC); [phone] 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 Do you [...] completed or the highest Martin, MEd, PRIMARY SCHOOL TEACHER LIBRARIAN, CAYDEN) degree you have received? Sex Assigned [...] hospital follow-up. The patient presented to the [facility] [[place], [place]] on 02/25/2021 for acute on chronicHFpEF and acute asthma exacerbation. Due to his hospitalization being in [place] his notes are not in our system [...] male who was hospitalized from 02/25/2021-02/26/2021 at [facility] [[place], [place]] on 02/25/2021 for acute on chronic HFpEF and acute asthma exacerbation. Due to his hospitalization being in [place] his notes are not in our system [...] Hyperglycemia (HCC). PLAN: His provider at the [facility] was interested in starting him on a [...] by Sarai Cason, a trained medical record technician. The creation of this recordis based on the scribe remotely listening to the visit and the provider's statements to them. This do cument has been checked and approved by the attending provider. Time spent 52 minutes Electronically signed by: Shayla Alford D.O. 03/02/21 6:02 PM CDT documented in this encounter Plan of Treatment Scheduled Referrals Name Type Priority Associated Diagnoses Order S [facility] Pulmonary Medicine Outpatient Referral Routine Cough Expected: - General consult Dyspnea 03/06/2021 , (clinic) Multifactorial Expires: Asthma Extrinsic 03/02/2024 Moderate (HCC) documented as of this encounter Results (ABNORMAL) CBC with Differential, Blood (03/02/2021 12:59 PM CDT) [facility] Method Time Signature Hemoglobin 11.9 (L) [...] Phon e Number [facility]- [address] [place] [address] [facility] [place] [address] System in [place] [address] DX Chest AP [...] documented as of this encounter Care Teams Chromium Plater Relationship Specialty Start Date End Date Shayla Alford D.O. PCP - General Internal Medicine 05/22/[address] [phone] documented as of this encounter
--- OUTSIDE RECORDS SUMMARY | 2022-05-28 07:11 | XMS_ITS | Encounter Summary ---
:1945 Author Organization [facility] Address [address] [place] [address] Care Team Providers Name Role Phone Shayla Alford D.O. Primary Care Provider [phone] Reason for Referral Outpatient (Routine) - Closed Specialty Diagnoses / Procedures Referred By Contact Refer red To Contact Diagnoses Chronic Systolic (Congestive) Heart Failure (HCC) Beat Premature Ventricular Manuel Evans M.D. [facility] Procedures ECG Heart Rhythm Monitor (Holter) [address] [place] [address] Referral ID Status Reason Start Date Expiration Date Visits Requ ested Visits Authorized [id number] Closed 02/01/2021 02/01/2022 1 1 Reason for Visit Outpatient (Routine) - Closed Specialty Diagnoses / Procedures Referred By Contact Refer red To Contact Diagnoses Chronic Systolic (Congestive) Heart Failure (HCC) Beat Premature Ventricular Manuel Evans M.D. [facility] Procedures ECG Heart Rhythm Monitor (Holter) [address] [place] [address] Referral ID Status Reason Start Date Expiration Date Visits Requ ested Visits Authorized [id number] Closed 02/01/2021 02/01/2022 1 1 Encounter Details Date Type Department Care Team Description 02/21/2021 Hospital Encounter Department of Cristina, Chronic Systolic (Congestive) Heart Failure (HCC); Cardiovascular Manuel Barber M.D. Beat Premature Ventricular Diseases in [place], [facility] [address] [place], [place] [address] [address] [place] [phone] (Work) [phone] Social History Tobacco Use Types Packs/Day Years [...] you attend jehovah's witness or Never 2021 baptism services? Do you [...] have completed or the highest Martin, MEd, SOLAR DESIGN ENGINEER, CAYDEN) degree you have received? [...] injectionIndications: Diabetes Mellitus Type 2 Hyperglycemia ([facility]) isosorbide mononitrate Take 1 tablet (60 mg 0 11/201902/22/2021 (IMDUR) 60 mg 24 hr total) by mouth tabletIndications: daily. 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 Ventricular documented in this encounter Results HOLTER MONITOR - IN CLINIC OPTICAL MANAGER (02/21/2021 8:20 AM CDT) [facility] Method Time Signature Min Heart Rate 52 bpm HOLTER SENTINEL AF Count 0 count HOLTER SENTINEL SVE Max Per [id number] HOLTER Hour Time SENTINEL Tachycardia 0 count HOLTER Runs SENTINEL SVE Total 80 count HOLTER Beats SENTINEL Mean Heart 68 bpm HOLTER Rate SENTINEL SVT Runs 0 count HOLTER SENTINEL VT Runs 0 count HOLTER SENTINEL Bradycardia 0 count HOLTER Runs SENTINEL Min Heart Rate [id number] HOLTER Time SENTINEL Max Heart Rate [id number] HOLTER Time SENTINEL Max Heart Rate 93 bpm HOLTER SENTINEL SVE Max Per 11 count HOLTER Hour SENTINEL SVE Percent 0 percent HOLTER Beats SENTINEL Recording Date HOLTER SENTINEL VE Max Per [id number] HOLTER Hour Time SENTINEL Holter Pauses 0 [...] as of this encounter Care Teams Home Appliances Mechanic Relationship Specialty Start Date End Date Shayla Alford D.O. PCP - General Internal Medicine 05/22/[address] [address] documented as of this encounter
--- OUTSIDE RECORDS SUMMARY | 2022-05-28 07:11 | XMS_ITS | Encounter Summary ---
:1945 Author Organization [facility] Address [address] [place] [address] Care Team Providers Name Role Phone Shayla Alford D.O. Primary Care Provider Reason for Referral Outpatient (Routine) - Closed Specialty Diagnoses / Procedures Referred By Contact Refer red To Contact Community Internal Diagnoses Effusion Pleural [facility] Tulio Mcguire [address] [place] [phone] Referral ID Status Reason Start Date Expiration Date Visits Requ ested Visits Authorized [id number] Closed 02/13/2021 02/13/2022 12 12 Outpatient (Routine) - Closed Specialty Diagnoses / Procedures Referred By Contact Refer anna To Contact Nephrology and Diagnoses Diabetes Mellitus Type 2 With Diabetic Chronic Kidney Disease Hyperglycemic (HCC) Chronic Kidney Disease (CKD), Stage 3b Glomerular Filtration Rate (GFR) 30 To 44 (HCC) Anemia In Chronic Kidney Disease [facility] Hypertension Tulio Mcguire [address] [place] [address] Referral ID Status Reason Start Date Expiration Date Visits Requ ested Visits Authorized [id number] Closed 02/13/2021 02/13/2022 1 1 Reason for Visit Reason Comments Fatigue Leg Swelling Appointment Request (Routine) - Closed Specialty Diagnoses / Procedures Referred By Contact Refer red To Contact Community Internal Medicine Referral ID Status Reason Start Date Expiration Date Visits Requ ested Visits Authorized [id number] Closed 01/30/2021 01/30/2022 1 1 Encounter Details Date Type Department Care Team Description 02/13/2021 Office Visit Department of Rocío Hyperlipide peter (Primary Dx); Internal Medicine Shayla larry D. O. Stroke (HCC); [place], [place] [address] Hypertension Essential Primary; [address] [place], [place] Diabetes Mellitus Type 2 Wit h Diabetic Chronic Kidney Disease Hyperglycemic ([facility]); [place] [address] Chronic Kidney Disease (CKD), Stage 3b G lomerular Filtration Rate (GFR) 30 To 44 ([facility]); [address] Anemia In Chronic Kidney Dis ease; Effusion Pleural; [phone] Hypothyroidism; (Fax) Asthma Extrinsi c Moderate ([facility]); Chronic Systoli c (Congestive) Heart Failure ([facility]) Social History Tobacco Use Types [...] do you attend faith or Never 2021 yazdanism services? Do you [...] have completed or the highest Martin, MEd, DUTY OFFICER, CAYDEN) degree you have received? Sex [...] the patient has [facility]. Patient's hemoglobin A1c has dropped to 7.9. He will continue taking Lantus 30 units at bedtime, NovoLog 11 units subQ t.i.d. he does have a [employer] Sofya system which has allowed better control of blood glucose especially, with the patient's variations in his blood sugar readings. blood pressure has been within good control, 131/80. Currently, on Imdur 60 mg daily, and [id number] mg daily. As well as, hydralazine 25 [...] The patient, received as additional diuresis through [facility]. Jonnathan Costa has, history of [...] Currently, on Imdur 60 mg daily, and ymfnojshee34 mg daily. As well as, hydralazine 25 [...] the patient has been following at the [facility] with end[facility]inology. Patient's hemoglobin A1c has dropped to 7.9. He will continue taking Lantus 30 units at bedtime, NovoLog 11 units subQ t.i.d. he does have a [employer] Sofya system which has allowed better control [...] The patient, received as additional diuresis through [facility]. Other orders - Hemoglobin A1c; [...] Name Type Priority Associated Diagnoses Order S [facility] Nephrology and Outpatient Routine Diabetes Mellitus Expected : Hypertension - Referral Type 2 With Diabetic 02/14, Chronic kidney Chronic Kidney Expires: disease consult Disease 02/14/2024 (clinic) Hyperglycemic (H CC) Chronic Kidney Disease (CKD), Stage 3b Glomerular Filtration Rate (GFR) 30 To 44 ( HCC) Anemia In Chronic Kidney Disease Community Internal Outpatient Routine every 3 m [facility] starting 02/13/2021 unti [...] eGFR-Black/Afri 37 (L) >=60 02/13/2021 [place] can Tristanian mL/min/BSA 10:43 AM CDT Comment: ----ADDITIONAL INFORMATION---- Estimated GFR calculated using the 2009 CKD_EPI creatinine equation. eGFR Non-Black/ 32 (L) >=60 mL/min/BSA 02/13/2021 10:43 AM CDT [facility] Tristanian Comment: ----ADDITIONAL INFORMATION---- Estimated GFR calculated using [...] e Number [facility]- [address] [place] [address] [place] [address] System in [place] [address] (ABNORMAL) Hemoglobin A1c (02/13/2021 [...] Number [facility]- [address] [place] [address] [facility] [place] [address] System in [place] [address] DX Chest AP [...] as of this encounter Care Teams School Cleaner Relationship Specialty Start Date End Date Shayla Alford D.O. PCP - General Internal Medicine 05/22/[address] [phone] documented as of this encounter
--- OUTSIDE RECORDS SUMMARY | 2022-05-28 07:11 | XMS_ITS | Encounter Summary ---
:1945 Author Organization [facility] Address [address] [place] [address] Care Team Providers Name Role Phone Shayla Alford D.O. Primary Care Provider [phone] Encounter Details Date Type Department Care Team Description 02/20/2021 Hospital Encounter Department of [place] Hypoth yroidism; Laboratory Medicine n, Gianna Mcguire Chronic Systolic (Congestive) Heart Fail ure (HCC) in [facility] [address] [place] [address] Social History Tobacco Use [...] do you attend orthodox or Never 2021 sabianist services? Do you [...] completed or the highest Martin, MEd, SENIOR WRITER, CAYDEN) degree you have received? Sex [...] by mouth tabletIndications: daily. 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 [place] MICROSOMAL AB Routine 02/20/2021 11:06 Results for this EA/TPO AM CDT procedure are i n the results section. documented in this encounter Results (ABNORMAL) Thyroid Function [place] (02/20/2021 11:09 AM CDT) P athologist Signature [...] Number [facility]- [address] [place] [address] [place] [address] System in [place] [address] T4 (Thyroxine), Free [...] Phon e Number [facility]- [address] [place] [address] [place] [address] System in [place] [address] (ABNORMAL) T3 (Triiodothyronine), Free (02/20/2021 11:09 AM CDT) athologist Signature T3 2.5 (L) 2.8 - 4.4 02/20/2021 [facility] (Triiodothyron pg/mL 9:56 PM CDT ine), Free, S Specimen Anatomical Collection Method Collection Time Receive d Time (Source) Location / / Volume Laterality Blood (Blood, 02/20/2021 11:09 02/20/2021 9:08 Venous) AM CDT PM CDT Shayla Alford D.O. LAB BLOOD ADD-ON Performing Organization Address City/State/ZIP Code Phon e Number [facility] [address] [place] [address] [facility] [place] [address] Laboratory Medicine and Pathology [address] [...] Code Phon e Number [facility] - [address] [place], [place] [address] [facility] [place] [address] [facility] [address] documented in this encounter Visit Diagnoses Diagnosis Hypothyroidism Chronic Systolic (Congestive) Heart Fail ure (HCC) documented in this encounter Additional Health Concerns Assessment Noted Time PHQ-9 Depression Total Score: 18 04/28/2018 11:27 AM C DT documented as of this encounter Care Teams Filter Pulp Washer Relationship Specialty Start Date End Date Shayla Alford D.O. PCP - General Internal Medicine 05/22/[address]199 [address] [place] [phone] documented as of this encounter
--- OUTSIDE RECORDS SUMMARY | 2022-05-28 07:11 | XMS_ITS | Encounter Summary ---
:1945 Author Organization [facility] Address [address] [place] [address] Care Team Providers Name Role Phone Shayla Alford D.O. Primary Care Provider [phone] Encounter Details Date Type Department Care Team Description 02/21/2021 Clinical Communication [facility] Pato Barber Transplantation and [address] [place] [address] Clinical [facility] in [place], [place] [address] [place] [address] [place] [address] (Work) [phone] Social History Tobacco Use Types Packs/Day Years [...] do you attend episcopalian or Never 2021 tenriism services? Do you [...] have completed or the highest Martin, MEd, BACTERIOLOGY TEACHER, CAYDEN) degree you have received? Sex Assigned at Date Recorded Male 05/21/2018 2:34 PM CDT documented as of this encounter Plan of Treatment Not on filedocumented as of this encounter Visit Diagnoses Not on filedocumented in this encounter Additional Health Concerns Assessment Noted Time PHQ-9 Depression Total Score: 18 04/28/2018 11:27 AM C DT documented as of this encounter Care Teams Blow Machine Tender Starch Spraying Relationship Specialty Start Date End Date Shayla Alford D.O. PCP - General Internal Medicine 05/22/20 [address] [place] [phone] documented as of this encounter
--- OUTSIDE RECORDS SUMMARY | 2022-05-28 07:11 | XMS_ITS | Encounter Summary ---
:1945 Author Organization [facility] Address [address] [place] [address] Care Team Providers Name Role Phone Shayla Alford D.O. Primary Care Provider [phone] Reason for Visit Reason Comments Post Hospital Follow-up Completed Encounter Details Date Type Department Care Team Description 02/27/2021 Clinical Communication [facility], J, R.N. Follow-up [facility], in [phone] ([facility] ed) [place], [place] (Work) [address] [place] [address] Social History Tobacco Use Types [...] do you attend yazidi or Never 2021 judaism services? Do you [...] have completed or the highest Martin, MEd, PHYSICIAN RELATIONS SPECIALIST, CAYDEN) degree you have received? Sex [...] documented as of this encounter Care Teams Bender Hand Relationship Specialty Start Date End Date Shayla Alford D.O. PCP - General Internal Medicine 05/22/20 [address], [place] [address] documented as of this encounter
--- OUTSIDE RECORDS SUMMARY | 2022-05-28 07:11 | XMS_ITS | Encounter Summary ---
:1945 Author Organization [facility] Address [address] [place] [address] Care Team Providers Name Role Phone Shayla Alford D.O. Primary Care Provider [phone] Encounter Details Date Type Department Care Team Description 02/13/2021 Hospital Encounter Department of Charmaine Alford Pleural Radiology in [place], D. OMauro [place] [address] [place] [phone] Social History Tobacco Use [...] have completed or the highest Martin, MEd, SWITCHER, CAYDEN) degree you have received? Sex Assigned [...] tabletIndications: daily. 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 PCP - General Internal Medicine 05/22/[address] [phone] documented as of this encounter
--- OUTSIDE RECORDS SUMMARY | 2022-05-28 07:11 | XMS_ITS | Encounter Summary ---
:1945 Author Organization [facility] Address [address] [place] [address] Care Team Providers Name Role Phone Shayla Alford D.O. Primary Care Provider [phone] Reason for Visit Reason Comments Follow-up Encounter Details Date Type Department Care Team Description 02/27/2021 Clinical Communication Department of Renan Linjayne Cardiovascular Medicine Erica Barber R.N. in [facility] [phone] [address] [facility] (Work) [place] [address] Social History Tobacco Use Types Packs/Day [...] do you attend gnosticism or Never 2021 amish services? Do you [...] have completed or the highest Martin, MEd, CTE TEACHER, CAYDEN) degree you have received? Sex [...] he was hospitalized over the weekend in [place] where his [facility] is located. He was hospitalized at [facility] and I am able to review the [...] hospitalization with his primary care provider in [place] on Friday03/02/2021. Lastly, patient reports that he [...] as of this encounter Care Teams Sales And Service Change Leader Relationship Specialty Start Date End Date Shayla Alford D.O. PCP - General Internal Medicine 05/22/[address] [phone] documented as of this encounter
--- OUTSIDE RECORDS SUMMARY | 2022-05-28 07:11 | XMS_ITS | Encounter Summary ---
:1945 Author Organization [facility] Address [address] [place] [address] Care Team Providers Name Role Phone Shayla Alford D.O. Primary Care Provider [phone] Encounter Details Date Type Department Care Team Description 01/31/2021 Clinical Communication Department of [facility] Kaushik Wong Medicine, [place]o [facility], [address] [address] [place], [place] [phone] [address] (Work) [phone] Social History Tobacco Use Types Packs/Day Years [...] do you attend congregation or Never 2021 voodoo services? Do you [...] completed or the highest Martin, MEd, COMPUTER OPERATIONS TECHNICIAN, CAYDEN) degree you have received? Sex [...] documented as of this encounter Care Teams Content Editor Relationship Specialty Start Date End Date Shayla Alford D.O. PCP - General Internal Medicine 05/22/20 [address], [place] [address] documented as of this encounter
--- OUTSIDE RECORDS SUMMARY | 2022-05-28 07:11 | XMS_ITS | Encounter Summary ---
:1945 Author Organization [facility] Address [address] [place] [address] Care Team Providers Name Role Phone Shayla Alford D.O. Primary Care Provider [phone] Reason for Visit Outpatient (Routine) - Closed Specialty Diagnoses / Procedures Referred By Contact Refer red To Contact Cardiovascular Disease Manuel Evans [place] M.D. [address] [place] [address] Referral ID Status Reason Start Date Expiration Date Visits Requ ested Visits Authorized [id number] Closed 02/01/2021 02/01/2022 1 1 Encounter Details Date Type Department Care Team Description 02/22/2021 Office Visit Department of Manuel Evans Chronic Sy stolic (Congestive) Heart Failure (HCC) (Primary Dx); Cardiovascular Medicine Pato Barber Beat Premature Ventricular; in [facility] potato peeler 200 [facility] Chronic Kidney Disease (CKD), Stage 3b G lomerular Filtration Rate (GFR) 30 To 44 (HCC); [address] [place], [place] Diabetes Mellitus Type 2 Wit h Diabetic Neuropathy (HCC); [place] [address] Diabetes Mellitus Type 2 Hyperglycemia ( HCC); [id number] Hypertension Essential Prima ry; Hyperlipidemia; [phone] Hypothyroidism (Fax) Social History Tobacco Use Types [...] do you attend episcopal or Never 2021 restoration services? Do you [...] completed or the highest Martin, MEd, CERTIFIED PHARMACY TECHNICIAN, CAYDEN) degree you have received? [...] as of this encounter Care Teams Roll Mechanic Relationship Specialty Start Date End Date Shayla Alford D.O. PCP - General Internal Medicine 05/22/[address] [address] documented as of this encounter
--- OUTSIDE RECORDS SUMMARY | 2022-05-28 07:11 | XMS_ITS | Encounter Summary ---
:1945 Author Organization [facility] Address [address] [place] [address] Care Team Providers Name Role Phone Shayla Alford D.O. Primary Care Provider Reason for Visit Reason Comments Cough Encounter Details Date Type Department Care Team Description 03/01/2021 Nurse Triage Department of Internal Kayli Cohn , Cough Medicine in [facility] [address] [facility] [address] [place] [address] [phone] Social History Tobacco Use Types Packs/Day Years [...] do you attend hindu or Never 2021 amish services? Do you [...] completed or the highest Martin, MEd, ROOF PROMENADE TILE SETTER, CAYDEN) degree you have received? Sex [...] or 4 hours. Call your doctor (or BILLING AND QUALITY TECHNICIAN/PA) now or as soon as the [...] need to be seen. Your doctor (or BILLING AND QUALITY TECHNICIAN/PA) will want to talk with you [...] F (37.8 C) AND [2] bedridden (e.g., [facility] patient, CVA, chronic illness, recovering from surgery) Protocols used: COUGH - ACUTE [id number] documented in this encounter Plan of Treatment Not on filedocumented as of this encounter Visit Diagnoses Not on filedocumented in this encounter Additional Health Concerns Assessment Noted Time PHQ-9 Depression Total Score: 18 04/28/2018 11:27 AM C DT documented as of this encounter Care Teams Advanced Manufacturing Engineer Relationship Specialty Start Date End Date Shayla Alford D.O. PCP - General Internal Medicine 05/22/20 [address] [place] [phone] documented as of this encounter
--- OUTSIDE RECORDS SUMMARY | 2022-05-28 07:11 | XMS_ITS | Encounter Summary ---
:1945 Author Organization [facility] Address [address] [place] [address] Care Team Providers Name Role Phone Shayla Alford D.O. Primary Care Provider [phone] Encounter Details Date Type Department Care Team Description 02/06/2021 Hospital Encounter Department of Augustin Wong O n Chronic Laboratory Medicine Pato Duque Diastolic in [place] [address] (Congestive) Heart [place], [place] Failure (HCC) [address] [facility] [address] [address] [place], [place] [phone] [address] (Work) [phone] Social History Tobacco Use Types Packs/Day Years [...] do you attend protestant or Never 2021 baptism services? Do you [...] completed or the highest Martin, MEd, DIRECT RESPONSE CONSULTANT, CAYDEN) degree you have received? Sex [...] by mouth tabletIndications: daily. 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 eGFR Non-Black/ 31 (L) >=60 mL/min/BSA 02/06/2021 2:00 PM CDT OWAT Peruvian Comment: ----ADDITIONAL INFORMATION---- Estimated GFR calculated using [...] Phon e Number [facility]- [address] [place] [address] [facility] [address] System in [place] [address] documented in this encounter Visit Diagnoses Diagnosis Acute On Chronic Diastolic (Congestive) Heart Failure (HCC) documented in this encounter Additional Health Concerns Assessment Noted Time PHQ-9 Depression Total Score: 18 04/28/2018 11:27 AM C DT documented as of this encounter Care Teams Platen Press Operator Relationship Specialty Start Date End Date Shayla Aflord D.O. PCP - General Internal Medicine 05/22/[address] [place] [phone] documented as of this encounter
--- OUTSIDE RECORDS SUMMARY | 2022-05-28 07:11 | XMS_ITS | Encounter Summary ---
:1945 Author Organization [facility] Address [address] [place] [address] Care Team Providers Name Role Phone Shayla Alford D.O. Primary Care Provider [phone] Reason for Visit Reason Comments Follow-up 1 week Appointment Request (Routine) - Closed Specialty Diagnoses / Procedures Referred By Contact Refer red To Contact Family Medicine Referral ID Status Reason Start Date Expiration Date Visits Requ ested Visits Authorized [id number] Closed 01/30/2021 01/30/2022 1 1 Encounter Details Date Type Department Care Team Description 02/06/2021 Office Visit Department of Family Augustin Wong Acu te On Chronic Diastolic (Congestive) Heart Failure (HCC) (Primary Dx); Medicine, Cadence Whyte [facility], in [address] [address] [place], [place] [phone] [address] (Work) [phone] Social History Tobacco Use Types Packs/Day Years [...] do you attend anabaptist or Never 2021 tenriism services? Do you belong to any clubs or No 10/09/2021 organizations such as anabaptist groups, [employer], fraUserMojo or athletic groups, or school groups? How [...] completed or the highest Martin, MEd, PHYSICAL THERAPIST TECHNICIAN, CAYDEN) degree you have received? Sex [...] Master's degree (e.g., MA, MS, Martin, MEd, PHYSICAL THERAPIST TECHNICIAN, CAYDEN) Occupational History Employer: RETIRED Tobacco Use [...] than three times a week ??? Attends [facility] [employer]: Never ??? Active Member of Clubs [...] eGFR-Black/Afri 36 (L) >=60 02/06/2021 OWAT can Pakistani mL/min/BSA 2:00 PM CDT Comment: ----ADDITIONAL INFORMATION---- Estimated GFR calculated using the 2009 CKD_EPI creatinine equation. eGFR Non-Black/ 31 (L) >=60 mL/min/BSA 02/06/2021 2:00 PM CDT OWAT Pakistani Comment: ----ADDITIONAL INFORMATION---- Estimated GFR calculated using [...] Phon e Number [facility]- [address] [place] [address] [place] [address] System in [place] [address] [facility] documented in this encounter Visit Diagnoses Diagnosis Acute On Chronic Diastolic (Congestive) Heart Failure (HCC) - Primary Effusion Pleural documented in this encounter Additional Health Concerns Assessment Noted Time PHQ-9 Depression Total Score: 18 04/28/2018 11:27 AM C DT documented as of this encounter Care Teams Signal Worker Relationship Specialty Start Date End Date Shayla Alford D.O. PCP - General Internal Medicine 05/22/[address] [place] [address] documented as of this encounter
--- OUTSIDE RECORDS SUMMARY | 2022-05-28 07:11 | XMS_ITS | Encounter Summary ---
:1945 Author Organization [facility] Address [address] [place] [address] Care Team Providers Name Role Phone Shayla Alford D.O. Primary Care Provider [phone] Encounter Details Date Type Department Care Team Description 02/06/2021 Clinical Communication Department of [facility] Kaushik Wong Medicine, [place] Pato [facility], [address] [address] [place], [place] [phone] [address] (Work) [phone] Social History Tobacco Use Types Packs/Day Years [...] do you attend gnosticist or Never 2021 synagogue services? Do you [...] have completed or the highest Martin, MEd, FLOW COORDINATOR, CAYDEN) degree you have received? Sex [...] documented as of this encounter Care Teams Debt And Budget Counselor Relationship Specialty Start Date End Date Shayla Alford D.O. PCP - General Internal Medicine 05/22/[address] [address] documented as of this encounter
--- OUTSIDE RECORDS SUMMARY | 2022-05-28 07:11 | XMS_ITS | Encounter Summary ---
:1945 Author Organization [facility] Address [address] [place] [address] Care Team Providers Name Role Phone Shayla Alford D.O. Primary Care Provider [phone] Encounter Details Date Type Department Care Team Description 02/15/2021 Clinical Communication Department of Internal Andrei Dejesus Medicine in [place], [place], [place] Mauro [place] [address] [place] [phone] Social History Tobacco Use Types Packs/Day Years [...] do you attend faith or Never 2021 protestant services? Do you [...] have completed or the highest Martin, MEd, CUTTING INSPECTOR, CAYDEN) degree you have received? Sex [...] documented as of this encounter Care Teams Slurry Tank Tender Relationship Specialty Start Date End Date Shayla Alford D.O. PCP - General Internal Medicine 05/22/[address] [address] documented as of this encounter
--- OUTSIDE RECORDS SUMMARY | 2022-05-28 07:12 | XMS_ITS | Encounter Summary ---
:1945 Author Organization [facility] Address [address] [place] [address] Care Team Providers Name Role Phone Shayla Alford D.O. Primary Care Provider [phone] Reason for Visit Reason Comments Pancreas Results Encounter Details Date Type Department Care Team Description 01/31/2021 Clinical Division of Parminder Pancreas (Resul ts) Communication Gastroenterology in [place], [place] M.D. [address] [facility] [address] [place] [address] [place] [address] Social History Tobacco Use Types Packs/Day Years [...] do you attend protestant or Never 2021 protestant services? Do you [...] completed or the highest Martin, MEd, MAINTENANCE SHOP LABORER, CAYDEN) degree you have received? Sex [...] documented as of this encounter Care Teams Teradata Developer Relationship Specialty Start Date End Date Shayla Alford D.O. PCP - General Internal Medicine 05/22/[address] [address] documented as of this encounter
--- OUTSIDE RECORDS SUMMARY | 2022-05-28 07:12 | XMS_ITS | Encounter Summary ---
:1945 Author Organization [facility] Address [address] [place] [address] Care Team Providers Name Role Phone Shayla Alford D.O. Primary Care Provider [phone] Reason for Referral Outpatient (Routine) - Closed Specialty Diagnoses / Procedures Referred By Contact Refer red To Contact [facility] Internal Xu Prescott M.D. [place] [address] [place] [address] Referral ID Status Reason Start Date Expiration Date Visits Requ ested Visits Authorized [id number] Closed 12/20/2020 12/20/2021 1 1 Reason for Visit Reason Comments Follow-up er follow up from heart fail ure on 12/18/2020 Appointment Request (Routine) - Closed Specialty Diagnoses / Procedures Referred By Contact Madelaine castillo To Contact Family Medicine Referral ID Status Reason Start Date Expiration Date Visits Requ ested Visits Authorized [id number] Closed 12/18/2020 12/18/2021 1 1 Encounter Details Date Type Department Care Team Description 12/20/2020 Office Visit Department of Xu Prescott, Sarath On [facility] hilary Systolic (Congestive) Heart Failure (HCC) (Primary Dx); Internal Medicine in [place] Atherosclerotic Heart Disease [place] Cor onary Artery With Other Forms Angina Pectoris (Angina Equivalent) (HCC); [place], [place] [address] Chronic Kidney Disease (CKD) , Stage 3 Unspecified (HCC) [address] [facility] [place] [address] [phone] Social History Tobacco Use Types Packs/Day Years [...] completed or the highest Martin, MEd, RESTAURANT EXPEDITOR, CAYDEN) degree you have received? Sex Assigned [...] CLINIC PROGRESS NOTE SUBJECTIVE LOCATION OF EXAM: [facility] CHIEF COMPLAINT/REASON FOR VISIT Chief Complaint Patient [...] Heart Failure (HCC) 2. Atherosclerotic Heart Disease [place] Coronary [...] his volume status and decide if more rn long term care increase in his diuretic is needed. - [...] Name Type Priority Associated Diagnoses Order S [facility] Internal Outpatient Referral Routine Ex pected: [...] eGFR-Black/Afri 41 (L) >=60 12/22/2020 OWAT can [place]ian mL/min/BSA 2:00 PM CDT Comment: ----ADDITIONAL INFORMATION---- Estimated GFR calculated using the 2009 CKD_EPI creatinine equation. eGFR Non-Black/ 35 (L) >=60 mL/min/BSA 12/22/2020 2:00 PM CDT OWAT [place]ian Comment: ----ADDITIONAL INFORMATION---- Estimated GFR calculated using [...] Code Phon e Number [facility]- [address] [place] [address] [place] [address] System in [place] [address] [facility] documented in this encounter Visit Diagnoses Diagnosis Acute On Chronic Systolic (Congestive) H eart Failure (HCC) - Primary Atherosclerotic Heart Disease [place] Cor onary Artery With Other Forms Angina Pectoris (Angina Equivalent) (HCC) Chronic Kidney Disease (CKD), Stage 3 Un specified (HCC) documented in this encounter Additional Health Concerns Assessment Noted Time PHQ-9 Depression Total Score: 18 04/28/2018 11:27 AM C DT documented as of this encounter Care Teams Mill Hand Relationship Specialty Start Date End Date Shayla Alford D.O. PCP - General Internal Medicine 05/22/[address] [place] [address] documented as of this encounter
--- OUTSIDE RECORDS SUMMARY | 2022-05-28 07:12 | XMS_ITS | Encounter Summary ---
:1945 Author Organization [facility] Address [address] [place] [address] Care Team Providers Name Role Phone Shayla Alford D.O. Primary Care Provider Encounter Details Date Type Department Care Team Description 12/27/2020 Hospital Encounter Department of Westley corley Obstructive Pulmonary Medicine n, Soraya Mcguire Pulmonary Disease in [place], [address] Without Exace rbation [facility] ([facility]) [address] [facility] [place] [address] Social History Tobacco Use Types [...] do you attend shinto or Never 2021 restorationism services? Do you [...] have completed or the highest Martin, MEd, UNDERWRITING DIRECTOR, CAYDEN) degree you have received? Sex [...] daily SYRINGE-NEEDLE,INSULIN,0. 0 5 ML (INSULIN [place] [facility]) amiodarone (PACERONE) 200 Take 200 mg by [...] by mouth tabletIndications: daily. 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) ([facility]), Diabetes Mellitus Type 2 ([facility]), Hypertension Essential Primary levothyroxine (SYNTHROID, Take 1 [...] Organization Address City/State/ZIP Code Phon e Number [facility] documented in this encounter Visit Diagnoses Diagnosis Chronic Obstructive Pulmonary Disease Wi th[place] Exacerbation (HCC) documented in this encounter Additional Health Concerns Assessment Noted Time PHQ-9 Depression Total Score: 18 04/28/2018 11:27 AM C DT documented as of this encounter Care Teams Production Department Supervisor Relationship Specialty Start Date End Date Shayla Alford D.O. PCP - General Internal Medicine 05/22/20 [address] [place] [address] documented as of this encounter
--- OUTSIDE RECORDS SUMMARY | 2022-05-28 07:12 | XMS_ITS | Encounter Summary ---
:1945 Author Organization [facility] Address [address] [place] [address] Care Team Providers Name Role Phone Shayla Alford D.O. Primary Care Provider [phone] Reason for Visit Reason Comments Shortness of Breath Has been going on for about a year but worse over the past 3 weeks, no head aches or dizz iness, he has balance issues. He states that his lungs just d ont feel like they have the capacity to take in enough oxygen. He has seen a access rep and they said his lungs are good. He wonders if it may be his heart. He has also been more tired tracy n usual. Appointment Request (Routine) - Closed Specialty Diagnoses / Procedures Referred By Contact Refer red To Contact Referral ID Status Reason Start Date Expiration Date Visits Requ ested Visits Authorized [id number] Closed 01/30/2021 01/30/2022 1 1 Encounter Details Date Type Department Care Team Description 01/30/2021 Office Visit Department of [facility] Augustin Wong Fai lushadia Heart ([facility]) (Primary Dx); Cadence Fleming M.D. Anemia; Clinic, in [address] Acute On Chronic Systolic (Congestive) H eart Failure ([facility]); 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 Do you [...] completed or the highest Martin, MEd, ELECTRIC REFRIGERATOR PREPARER, CAYDEN) degree you have received? Sex Assigned [...] Master's degree (e.g., MA, MS, Martin, MEd, ELECTRIC REFRIGERATOR PREPARER, CAYDEN) Occupational History Employer: RETIRED Tobacco Use [...] than three times a week ??? Attends Hoahaoism Services: Never ??? Active Member of Clubs [...] (Congestive) Heart Failure (HCC) Atherosclerotic Heart Disease [place] Coronary Artery With [...] been progressively getting worse. I called his access rep office- Dr. Sims to get his recommendation [...] eGFR-Black/Afri 47 (L) >=60 01/30/2021 OWAT can Haitian mL/min/BSA 6:34 PM CDT Comment: ----ADDITIONAL INFORMATION---- Estimated GFR calculated using the 2009 CKD_EPI creatinine equation. eGFR Non-Black/ 41 (L) >=60 mL/min/BSA 01/30/2021 6:34 PM CDT OWAT [place] Comment: ----ADDITIONAL INFORMATION---- Estimated GFR calculated using [...] Code Phon e Number [facility]- [address] [place] [address] [facility] [place] [address] System in [place] [address] (ABNORMAL) CBC with Differential, Blood (01/30/2021 2:57 PM CDT) [facility] Method Time Signature Hemoglobin 10.7 (L) [...] Organization Address City/State/ZIP Code Phon e Number [place] [address] [place] [address] [facility] [address] [place] [address] System [address] documented in this encounter Visit Diagnoses Diagnosis Failure Heart (HCC) - Primary Anemia Acute On Chronic Systolic (Congestive) H eart Failure (HCC) Atherosclerotic Heart Disease [place] Cor onary Artery With Other Forms Angina Pectoris (Angina Equivalent) (HCC) Effusion Pleural Asthma Exacerbation (HCC) Diabetes Mellitus Type 2 Hyperglycemia ( HCC) Hyperlipidemia Pancreatitis Chronic Recurrent (HCC) Hypothyroidism Shortness Of Breath documented in this encounter Additional Health Concerns Assessment Noted Time PHQ-9 Depression Total Score: 18 04/28/2018 11:27 AM C DT documented as of this encounter Care Teams Manager Bar Relationship Specialty Start Date End Date Shayla Alford D.O. PCP - General Internal Medicine 05/22/[address] [address] documented as of this encounter
--- OUTSIDE RECORDS SUMMARY | 2022-05-28 07:12 | XMS_ITS | Encounter Summary ---
:1945 Author Organization [facility] Address [address] [place] [address] Care Team Providers Name Role Phone Shayla Alford D.O. Primary Care Provider [phone] Reason for Visit Reason Comments Follow-up 5 day follow up Other discuss grapefruit juice and information on COPD and who is to repeat colonoscopy Outpatient (Routine) - Closed Specialty Diagnoses / Procedures Referred By Contact Refer red To Contact Community Internal Xu Prescott M.D. Formerly [facility] Medicine [facility] [place] [address] Referral ID Status Reason Start Date Expiration Date Visits Requ ested Visits Authorized [id number] Closed 12/20/2020 12/20/2021 1 1 Encounter Details Date Type Department Care Team Description 12/25/2020 Office Visit Department of Xu Prescott M. D. Acute On Chronic Systolic (Congestive) H eart Failure (HCC) (Primary Dx); Internal Medicine in [address] [facility] [address] [facility] Chronic Kidney Disease (CKD), Stage 3b G lomerular Filtration Rate (GFR) 30 To 44 (HCC); [place] [address] Asthma Extrinsic Moderate (HCC); [address] [phone] Diabetes Mellitus Type 2 Hyp erglycemia (HCC) [place], [place] (Work) [address] [phone] Social History Tobacco Use Types Packs/Day Years [...] do you attend gnosticist or Never 2021 evangelical services? Do you [...] have completed or the highest Martin, MEd, ZONING ASSISTANT, CA[place]) degree you have received? Sex [...] CLINIC PROGRESS NOTE SUBJECTIVE LOCATION OF EXAM: [facility] CHIEF COMPLAINT/REASON FOR VISIT Chief Complaint [...] documented as of this encounter Care Teams Casing Splitter Relationship Specialty Start Date End Date Shayla Alford D.O. PCP - General Internal Medicine 05/22/[address] [phone] (work) documented as of this encounter
--- OUTSIDE RECORDS SUMMARY | 2022-05-28 07:12 | XMS_ITS | Encounter Summary ---
:1945 Author Organization [facility] Address [address] [place] [address] Care Team Providers Name Role Phone Shayla Alford D.O. Primary Care Provider [phone] Encounter Details Date Type Department Care Team Description 01/30/2021 Clinical Communication Department of Internal Andrei Dejesus Medicine in [place], [place], [place] [address] [place] [phone] Social History Tobacco Use Types Packs/Day Years [...] do you attend baptist or Never 2021 catholic services? Do you [...] have completed or the highest Martin, MEd, SUBSTITUTE SCHOOL NURSE, [place]) degree you have received? Sex [...] He made an appointment to see a [place] provider today and will then follow up [...] as of this encounter Care Teams Churn Operator Relationship Specialty Start Date End Date Shayla Alford D.O. PCP - General Internal Medicine 05/22/[address] [phone] documented as of this encounter
--- OUTSIDE RECORDS SUMMARY | 2022-05-28 07:12 | XMS_ITS | Encounter Summary ---
:1945 Author Organization [facility] Address [address] [place] [address] Care Team Providers Name Role Phone Shayla Alford D.O. Primary Care Provider [phone] Encounter Details Date Type Department Care Team Description 12/18/2020 Clinical Communication Department of Internal Andrei Dejesus Medicine in [place], [place], [place] Mauro [place] [address] [place] [phone] Social History Tobacco Use Types Packs/Day Years [...] do you attend anabaptist or Never 2021 latter-day services? Do you [...] have completed or the highest Martin, MEd, A AUXILIARY, CAYDEN) degree you have received? Sex Assigned [...] documented as of this encounter Care Teams Channel Lip Wetter Relationship Specialty Start Date End Date Shayla Alford D.O. PCP - General Internal Medicine 05/22/202199 [address] [facility] [place] [address] documented as of this encounter
--- OUTSIDE RECORDS SUMMARY | 2022-05-28 07:12 | XMS_ITS | Encounter Summary ---
:1945 Author Organization [facility] Address [address] [place] [address] Care Team Providers Name Role Phone Shayla Alford D.O. Primary Care Provider [phone] Reason for Visit Reason Comments Shortness of Breath Encounter Details Date Type Department Care Team Description 12/18/2020 - Emergency [facility] ED Effusion Pleural (Primary Dx ); 12/19/[address] [place] [phone] Social History Tobacco Use Types Packs/Day [...] do you attend jew or Never 2021 church services? Do you [...] have completed or the highest Martin, MEd, GILL BOX OPERATOR, CAYDEN) degree you have received? Sex [...] by mouth daily. PEN NEEDLE, DIABETIC MISC Ayni Fine 30 0 disposable needles. For use [...] by mouth tabletIndications: daily. 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 PCP - General Internal Medicine 05/22/20 [address] [place] [phone] documented as of this encounter
--- OUTSIDE RECORDS SUMMARY | 2022-05-28 07:12 | XMS_ITS | Encounter Summary ---
:1945 Author Organization [facility] Address [address] [place] [address] Care Team Providers Name Role Phone Shayla Alford D.O. Primary Care Provider [phone] Reason for Visit Reason Comments Doctor requesting to discuss patient with you Encounter Details Date Type Department Care Team Description 01/30/2021 Clinical Division of Ailyn Sims Doctor shadia Duque M.D. to discuss patient Medicine in [address] [place] [address] with you [facility] [phone] [place] [address] [place], [place] (Work) [address] [phone] Social History Tobacco Use Types Packs/Day Years [...] do you attend restoration or Never 2021 mormon services? Do you [...] have completed or the highest Martin, MEd, CONCRETE FLOATER, CAYDEN) degree you have received? Sex Assigned [...] of this encounter Care Teams Manufacturing Engineering Technician Relationship Specialty Start Date End Date Shayla Alford D.O. PCP - General Internal Medicine 05/22/202199 26[place] [address] documented as of this encounter
--- OUTSIDE RECORDS SUMMARY | 2022-05-28 07:12 | XMS_ITS | Encounter Summary ---
:1945 Author Organization [facility] Address [address] [place] [address] Care Team Providers Name Role Phone Shayla Alford D.O. Primary Care Provider [phone] Encounter Details Date Type Department Care Team Description 12/22/2020 Hospital Encounter Department of Xu Prescott Acute O n Chronic Systolic (Congestive) Heart Failure (HCC); Laboratory Medicine [place] Chronic Kidney Disease (CKD), Stage 3 Un specified (HCC) in [address], [place] [phone] Social History Tobacco Use Types Packs/Day [...] have completed or the highest Martin, MEd, FINISH CARPENTER, CAYDEN) degree you have received? Sex [...] by mouth tabletIndications: daily. 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), Diabetes Mellitus Type 2 (HCC), Hypertension Essential [...] eGFR-Black/Afri 41 (L) >=60 12/22/2020 [facility] can [place] mL/min/BSA 2:00 PM CDT Comment: ----ADDITIONAL INFORMATION---- Estimated GFR calculated using the 2009 CKD_EPI creatinine equation. eGFR Non-Black/ 35 (L) >=60 mL/min/BSA 12/22/2020 2:00 PM CDT [facility] [place] Comment: ----ADDITIONAL INFORMATION---- Estimated GFR calculated using [...] [facility]- [address] [place] [address] [place] [address] System in [place] [address] [facility] documented in this encounter Visit Diagnoses Diagnosis Acute On Chronic Systolic (Congestive) H eart Failure (HCC) Chronic Kidney Disease (CKD), Stage 3 Un specified (HCC) documented in this encounter Additional Health Concerns Assessment Noted Time PHQ-9 Depression Total Score: 18 04/28/2018 11:27 AM C DT documented as of this encounter Care Teams Operations Welder Relationship Specialty Start Date End Date Shayla Alford D.O. PCP - General Internal Medicine 05/22/202199 [place] [address] documented as of this encounter
--- OUTSIDE RECORDS SUMMARY | 2022-05-28 07:12 | XMS_ITS | Encounter Summary ---
:1945 Author Organization [facility] Address [address] [place] [address] Care Team Providers Name Role Phone Shayla Alford D.O. Primary Care Provider [phone] Encounter Details Date Type Department Care Team Description 12/12/2020 Hospital Encounter Department of Parminder, Pancreat itis Chronic Laboratory Medicine Rhoda Stein ([facility]) in [place], [facility] [address] [place], [place] [address] [address] [place], [place] [phone] (Work) [phone] Social History Tobacco Use Types Packs/Day Years [...] do you attend adventist or Never 2021 sabianism services? Do you [...] completed or the highest Martin, MEd, PRINCIPAL HARDWARE ARCHITECT, CAYDEN) degree you have received? Sex [...] [facility]), Diabetes Mellitus Type 2 (HCC), Hypertension [...] for this VITAMIN E, S PM CDT ([facility]) procedure are i n the results section. 25-HYDROXYVITAMIN D2 Routine 12/12/2020 12:37 Pancreatitis Chr onic Results for this AND D3, S PM CDT ([facility]) procedure are i n the results section. PROTHROMBIN TIME Routine 12/12/2020 12:37 Pancreatitis Chronic Results for this (PT), P PM CDT ([facility]) procedure are i n the results section. CREATININE WITH Routine 12/12/2020 12:37 Pancreatitis Chronic Results for this EGFR, S/P PM CDT ([facility]) procedure are i n the results section. documented in this encounter Results (ABNORMAL) Creatinine with Estimated GFR (12/12/2020 12:37 PM CDT) Analysis Performed At [facility] logist Time Signature Creatinine 1.75 (H) 0.74 - 12/12/2020 [facility] 1.35 mg/dL 1:35 PM CDT eGFR-Black/Afri 42 (L) >=60 12/12/2020 [facility] can [place] mL/min/BSA 1:35 PM CDT Comment: ----ADDITIONAL INFORMATION---- Estimated GFR calculated using the 2009 CKD_EPI creatinine equation. eGFR Non-Black/ 37 (L) >=60 mL/min/BSA 12/12/2020 1:35 PM CDT [facility] Irish Comment: ----ADDITIONAL INFORMATION---- Estimated GFR calculated using the 2009 CKD_EPI creatinine equation. Specimen Anatomical Collection Method Collection Time Receive d Time (Source) Location / / Volume Laterality Blood (Blood, 12/12/2020 12:37 12/12/2020 Venous) PM CDT 12:52 PM CDT Emil Zurita M.D. LAB BLOOD ADD-ON Performing Organization Address City/[facility]/ZIP Code Phon e Number [facility]- [address] [place] [place] [address] [place] [address] System in [place] [address] [facility] Prothrombin Time (PT) (12/12/2020 12:37 [...] M.D. LAB BLOOD ADD-ON Performing Organization Address City/[facility]/ZIP Code Phon e Number [facility]- [address] [place] [address] [place] [address] System in [place] [address] 25-Hydroxyvitamin D2 and D3 (12/12/2020 12:37 PM CDT) P athologist Signature 25-Hydroxy D2 <4.0 ng/mL 12/14/2020 [facility] 1:23 AM CDT 25-Hydroxy D3 35 ng/mL 12/14/2020 [facility] 1:23 AM CDT 25-Hydroxy D 35 ng/mL 12/14/2020 [facility] Total 1:23 AM CDT Comment: ----REFERENCE VALUE---- 25-HYDROXY D TOTAL (D2+D3) Optimum level s in the healthy population are 20-50, patients with bone disease may benefit from higher levels within this r stan. ----ADDITIONAL INFORMATION---- This test was developed and its performa nce characteristics determined by [facility] in a manner consistent with CLIA requirements. This test has not been cleared or approved by the U.[place]. Susana d and Drug Administration. Specimen Anatomical Collection Method Collection Time Receive d Time (Source) Location / / Volume Laterality Blood (Blood, 12/12/2020 12:37 12/13/2020 7:48 Venous) PM CDT AM CDT Emil Zurita M.D. LAB BLOOD ADD-ON Performing Organization Address [facility] Phon e Number [facility] [address] [place] [address] [facility] [place] [address] Laboratory Medicine and Pathology [address] [place] [address] Dr. AYALA Vitamin A and Vitamin E (12/12/2020 12:37 PM CDT) P athologist Signature Vitamin A 70.5 32.5 - 78.0 12/14/2020 1:31 [facility] mcg/dL PM CDT Comment: ----ADDITIONAL INFORMATION---- This test was developed and its performa nce characteristics determined by [facility] in a manner consistent with CLIA requirements. This test has not been cleared or approved by the U.[place]. Susana d and Drug Administration. A-Tocopherol, Vitamin E 6.6 5.5 - 17.0 mg/L 12/15/2020 7:53 AM CDT [facility] Specimen Anatomical Collection Method Collection Time Receive d Time (Source) Location / / Volume Laterality Blood (Blood, 12/12/2020 12:37 12/13/2020 4:45 Venous) PM CDT PM CDT Emil Zurita M.D. LAB BLOOD NON ADD-ON Performing Organization Address City/[facility] Phon e Number [place] [phone] [place] [phone] [address] [facility] [place] [address] Laboratory Medicine and Pathology [address] [place] documented in this encounter Visit Diagnoses Diagnosis Pancreatitis Chronic (HCC) documented in this encounter Additional Health Concerns Assessment Noted Time PHQ-9 Depression Total Score: 18 04/28/2018 11:27 AM C DT documented as of this encounter Care Teams Bank Representative Relationship Specialty Start Date End Date Shayla Alford D.O. PCP - General Internal Medicine 05/22/[address] [phone] documented as of this encounter
--- OUTSIDE RECORDS SUMMARY | 2022-05-28 07:12 | XMS_ITS | Encounter Summary ---
:1945 Author Organization [facility] Address [address] [place] [address] Care Team Providers Name Role Phone Shayla Alford D.O. Primary Care Provider [phone] Reason for Visit Reason Comments Shortness of Breath COVID Nurse Line Encounter Details Date Type Department Care Team Description 12/18/2020 Nurse Triage Department of Internal Milena Mackenzie, Shortness of Breath; [facility] [place] [facility] [place] [address] [facility] [address] [place] [phone] Social History Tobacco Use Types Packs/Day Years [...] do you attend yarsani or Never 2021 denominational services? Do you [...] completed or the highest Martin, MEd, CLINICAL SPECIALTY REP, [place]) degree you have received? Sex Assigned at Date Recorded Male 05/21/2018 2:34 PM CDT documented as of this encounter Miscellaneous Notes Telephone Encounter - Milena Mackenzie R.N. - 12/18/2020 9:02 AM CDT COVID-19 Nurse Line Screening ASSESSMENT Region Select appropriate region: : [place] Age Pathway Select approprite pathway: : Adult [...] water are not available, use a hand food service representative -Avoid touching your eyes, nose and mouth. [...] The following references were used: [facility] novel coronavirus (COVID- 19) resources Nursing [...] [2] WORSE than normal Protocols used: BREATHING [id number] documented in this encounter Plan of Treatment Not on filedocumented as of this encounter Visit Diagnoses Not on filedocumented in this encounter Additional Health Concerns Assessment Noted Time PHQ-9 Depression Total Score: 18 04/28/2018 11:27 AM C DT documented as of this encounter Care Teams Semiconductor Dies Loader Relationship Specialty Start Date End Date Shayla Alford D.O. PCP - General Internal Medicine 05/22/20 [address] [place] [phone] documented as of this encounter
--- OUTSIDE RECORDS SUMMARY | 2022-05-28 07:12 | XMS_ITS | Encounter Summary ---
:1945 Author Organization [facility] Address [address] [place] [address] Care Team Providers Name Role Phone Shayla Alford D.O. Primary Care Provider [phone] Reason for Visit Reason Comments Shortness of Breath Encounter Details Date Type Department Care Team Description 01/30/2021 Nurse Triage Department of Internal Elisa Woody Sho rtness of Breath Medicine in [facility] [address] [place] [address] [address] [place] [phone] Social History Tobacco Use Types [...] do you attend gnosticist or Never 2021 yazidism services? Do you [...] have completed or the highest Martin, MEd, REAL ESTATE ATTORNEY, [place]) degree you have received? Sex [...] [2] WORSE than normal Protocols used: BREATHING [id number] COVID-19 Nurse Line Screening ASSESSMENT Region Select appropriate region: : [place] Age Pathway Select approprite pathway: : Adult [...] water are not available, use a hand software installer -Avoid touching your eyes, nose and mouth. [...] documented as of this encounter Care Teams Showroom Sales Assistant Relationship Specialty Start Date End Date Shayla Alford D.O. PCP - General Internal Medicine 05/22/[address] [phone] documented as of this encounter
--- OUTSIDE RECORDS SUMMARY | 2022-05-28 07:12 | XMS_ITS | Encounter Summary ---
:1945 Author Organization [facility] Address [address] [place] [address] Care Team Providers Name Role Phone Shayla Alford D.O. Primary Care Provider [phone] Encounter Details Date Type Department Care Team Description 01/11/2021 Hospital Encounter Department of José Luis Alford thyroidism Laboratory Medicine in Gianna Mcguire [place], [place] [address] [place] [phone] Social History Tobacco Use Types [...] do you attend amish or Never 2021 sikhism services? Do you [...] have completed or the highest Martin, MEd, LIFE GUARD, CAYDEN) degree you have received? Sex [...] by mouth tabletIndications: daily. 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 PCP - General Internal Medicine 05/22/20 [address] [place] [phone] documented as of this encounter
--- OUTSIDE RECORDS SUMMARY | 2022-05-28 07:12 | XMS_ITS | Encounter Summary ---
:1945 Author Organization [facility] Address [address] [place] [address] Care Team Providers Name Role Phone Shayla Alford.OMauro Primary Care Provider Reason for Visit Reason Comments Form Review OSM Encounter Details Date Type Department Care Team Description 01/07/2021 Clinical Communication Department of Alexys marin Review (OSM) Internal Medicine in [place], [place] D.[address]. [address] [facility] [address] [place], [place] [phone] Social History Tobacco Use Types Packs/Day [...] you attend latter day or Never 2021 mormon services? Do you [...] have completed or the highest Martin, MEd, ASSEMBLER GOLD FRAME, CAYDEN) degree you have received? Sex Assigned at Date Recorded Male 05/21/2018 2:34 PM CDT documented as of this encounter Miscellaneous Notes Telephone Encounter - Tari Crystal - 01/07/2021 2:19 PM CDT [facility] outside records have been uploaded into [...] as of this encounter Care Teams Inspector Circuitry Negative Relationship Specialty Start Date End Date Shayla Alford D.O. PCP - General Internal Medicine 05/22/20 [address] [place] [phone] documented as of this encounter
--- OUTSIDE RECORDS SUMMARY | 2022-05-28 07:12 | XMS_ITS | Encounter Summary ---
:1945 Author Organization [facility] Address [address] [place] [address] Care Team Providers Name Role Phone Shayla Alford D.O. Primary Care Provider [phone] Reason for Visit Reason Comments Shortness of [...] Expiration Date Visits Requ ested Visits Authorized [id number] Closed 12/18/2020 12/18/2021 1 1 Encounter Details Date Type Department Care Team Description 12/18/2020 Office Visit Department of Family Augustin Wong Sho rtness Of Breath (Primary Dx); Cadence Fleming M.D. 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 Do you [...] completed or the highest Martin, MEd, PRESSURE WASHER, CAY[place]) degree you have received? 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 ER called an signed out the patient to them. 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 PCP - General Internal Medicine 05/22/[address] [phone] documented as of this encounter
--- OUTSIDE RECORDS SUMMARY | 2022-05-28 07:12 | XMS_ITS | Encounter Summary ---
:1945 Author Organization [facility] Address [address] [place] [address] Care Team Providers Name Role Phone Shayla Alford D.O. Primary Care Provider [phone] Reason for Referral MRI/CAT/PET Scan (Routine) - Closed Specialty Diagnoses / Procedures Referred By Contact Refer red To Contact Radiology Diagnoses Pancreatitis Chronic (HCC) Emli Zurita M.D. [facility] Procedures MR Abdomen MRCP without IV Contrast [address] [place], [place] [address] Referral ID Status Reason Start Date Expiration Date Visits Requ ested Visits Authorized [id number] Closed 12/07/2020 12/07/2021 1 1 Reason for Visit MRI/CAT/PET Scan (Routine) - Closed Specialty Diagnoses / Procedures Referred By Contact Refer red To Contact Radiology Diagnoses Pancreatitis Chronic (HCC) Emil Zurita M.D. [facility] Procedures MR Abdomen MRCP without IV Contrast [address] [place], [place] [address] Referral ID Status Reason Start Date Expiration Date Visits Requ ested Visits Authorized [id number] Closed 12/07/2020 12/07/2021 1 1 Encounter Details Date Type Department Care Team Description 01/19/2021 Hospital Encounter Department of Camilla Zurita Chronic Radiology, Leanne Stein M.D. ([facility]) Building, in [address] [place] [address] [place] [address] [place], [place] [phone] (Work) [phone] Social History Tobacco Use Types Packs/Day Years [...] you attend roman catholic or Never 2021 mormon services? Do you [...] have completed or the highest Martin, MEd, CARDIOPULMONARY TECHNICIAN, CAYDEN) degree you have received? Sex [...] by mouth tabletIndications: daily. 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 Remaind er negative. Emil ASLINAS MRI PROCEDURES documented in this encounter Visit Diagnoses Diagnosis Pancreatitis Chronic (HCC) documented in this encounter Additional Health Concerns Assessment Noted Time PHQ-9 Depression Total Score: 18 04/28/2018 11:27 AM C DT documented as of this encounter Care Teams Video Player Mechanic Relationship Specialty Start Date End Date Shayla Alford D.O. PCP - General Internal Medicine 05/22/[address] [address] documented as of this encounter
--- OUTSIDE RECORDS SUMMARY | 2022-05-28 07:12 | XMS_ITS | Encounter Summary ---
:1945 Author Organization [facility] Address [address] [place] [address] Care Team Providers Name Role Phone Shayla Alford D.O. Primary Care Provider [phone] Encounter Details Date Type Department Care Team Description 12/12/2020 Hospital Encounter Department of Westley Diabet es Mellitus Laboratory Medicine n, Gianna Mcguire Type 2 Without in [place], [address] Complication (H CC) [address] [place] [address] Social History Tobacco Use [...] do you attend druze or Never 2021 cheondoism services? Do you [...] or the highest Martin, MEd, REGISTERED NURSE CARDIAC, CAYDEN) degree you have received? Sex Assigned [...] by mouth tabletIndications: daily. 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- [address] [place] [address] [place] [address] System in [place] [address] documented in this encounter Visit Diagnoses Diagnosis Diabetes Mellitus Type 2 Without Complic ation (HCC) documented in this encounter Additional Health Concerns Assessment Noted Time PHQ-9 Depression Total Score: 18 04/28/2018 11:27 AM C DT documented as of this encounter Care Teams Tso Relationship Specialty Start Date End Date Shayla Alford D.O. PCP - General Internal Medicine 05/22/202199 [place] [address] documented as of this encounter
--- OUTSIDE RECORDS SUMMARY | 2022-05-28 07:12 | XMS_ITS | Encounter Summary ---
:1945 Author Organization [facility] Address [address] [place] [address] Care Team Providers Name Role Phone Shayla Alford D.O. Primary Care Provider Encounter Details Date Type Department Care Team Description 12/24/2020 Lab Department of [facility] Ligia Alford For Screening Medicine, [facility] Tulio Mcguire For Other Viral Diseases [address] (COVID-19) [place], [place] 134 [facility] [address] [place] [address] [phone] Social History Tobacco Use Types Packs/Day Years [...] do you attend hoahaoism or Never 2021 buddhist services? Do you [...] completed or the highest Martin, MEd, MACHINE PAN GREASER, CAYDEN) degree you have received? Sex Assigned [...] RNA, V Asymptomatic (12/24/2020 9:41 AM CDT) [facility] Method Time Signature SARS-CoV-2 Swab, 12/25/2020 MKTO [...] pe rformed using the Aptima SARS-CoV-2 assay ([employer] on the [employer]mont Sys tem under emergency use authorization (EUA) by the U.S. Food and Drug Administ ration. Fact sheets for this EUA assay can be fo und at the following links: For Healthcare Providers: https://www.fd a.gov/media/490406/download For Patients: https://www.fda.gov/media/ 326207/download Specimen Anatomical Collection Method Collection Time Receive d Time (Source) Location / / Volume Laterality Varies 12/24/2020 9:41 AM 7:14 (Nasopharynx) CDT AM CDT Shayla Alford D.O. LAB MICROBIOLOGY - GENERAL ORDERABLES Performing Organization Address City/State/[facility] Phon e Number [facility]- [address] [place] [address] [place] [address] System [address] documented in this encounter Visit Diagnoses Diagnosis Encounter For Screening For Other Viral Diseases (COVID-19) documented in this encounter Additional Health Concerns Infection Onset Date Last Indicated Resolved Time COVID19 Pending 12/23/2020 12/24/2020 12/25/2020 2:43 PM CDT Assessment Noted Time PHQ-9 Depression Total Score: 18 04/28/2018 11:27 AM C DT documented as of this encounter Care Teams Supervisor Dyer Relationship Specialty Start Date End Date Shayla Alford D.O. PCP - General Internal Medicine 05/22/[address] [place] [address] documented as of this encounter
--- OUTSIDE RECORDS SUMMARY | 2022-05-28 07:12 | XMS_ITS | Encounter Summary ---
:1945 Author Organization [facility] Address [address] [place] [address] Care Team Providers Name Role Phone Shayla Alford D.O. Primary Care Provider [phone] Encounter Details Date Type Department Care Team Description 01/30/2021 Hospital Encounter Department of Augustin Wong [facility] Heart (HCC); Laboratory Medicine Pato Duque Anemia in [facility] [address] [place], [place] 300 [facility] [address] [place], [place] [phone] [address] (Work) [phone] Social History Tobacco Use Types Packs/Day Years [...] do you attend faith or Never 2021 voodoo services? Do you [...] completed or the highest Martin, MEd, NEUROLOGY STROKE PHYSICIAN, CAYDEN) degree you have received? Sex [...] by mouth tabletIndications: daily. 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 eGFR Non-Black/ 41 (L) >=60 mL/min/BSA 01/30/2021 6:34 PM CDT [place] Comment: ----ADDITIONAL INFORMATION---- Estimated GFR calculated using [...] Code Phon e Number [facility]- [address] [place] [address] [place] [address] System in [place] [address] (ABNORMAL) CBC with Differential, Blood (01/30/2021 2:57 PM CDT) [facility] Method Time Signature Hemoglobin 10.7 [...] Address City/State/ZIP Code Phon e Number [address] [place] [address] [place] [address] [place] [address] System [address] documented in this encounter Visit Diagnoses Diagnosis Failure Heart (HCC) Anemia documented in this encounter Additional Health Concerns Assessment Noted Time PHQ-9 Depression Total Score: 18 04/28/2018 11:27 AM C DT documented as of this encounter Care Teams Arnp Relationship Specialty Start Date End Date Shayla Alford D.O. PCP - General Internal Medicine 05/22/20 [address], [place] [address] documented as of this encounter
--- OUTSIDE RECORDS SUMMARY | 2022-05-28 07:13 | XMS_ITS | Encounter Summary ---
:1945 Author Organization [facility] Address [address] [place] [address] Care Team Providers Name Role Phone Shayla Alford D.O. Primary Care Provider [phone] Reason for Referral Outpatient (Routine) - Closed Specialty Diagnoses / Procedures Referred By Contact Refer red To Contact Diagnoses Chronic Systolic (Congestive) Heart Failure (HCC) Manuel Evans M.D. [facility] Procedures ECG Heart rhythm monitor (Holter) [address] [place] [address] Referral ID Status Reason Start Date Expiration Date Visits Requ ested Visits Authorized [id number] Closed 11/17/2020 11/17/2021 1 1 ABILITY MACHINE OPERATOR Reason for Visit Outpatient (Routine) - Closed Specialty Diagnoses / Procedures Referred By Contact Refer red To Contact Cardiovascular Disease Diagnoses Chronic Systolic (Congestive) Heart Failure (HCC) Manuel Evans [facility] Felicita Whyte [address] [place] [address] Referral ID Status Reason Start Date Expiration Date Visits Requ ested Visits Authorized [id number] Closed 06/06/2020 06/06/2021 1 1 Encounter Details Date Type Department Care Team Description 11/17/2020 Office Visit Department of Manuel Evans Sy stolic (Congestive) Heart Failure (HCC) (Primary Dx); Cardiovascular Medicine Pato Barber Hypertension Essential Primary; in [facility] 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 Do [...] completed or the highest Martin, MEd, POLICE BOOKING OFFICER, CAYDEN) degree you have received? Sex Assigned at Date Recorded Male 05/21/2018 2:34 PM CDT documented as of this encounter Last Filed Vital Signs Vital Sign Reading Time Taken Comments Blood Pressure 148/75 11/17/2020 2:22 PM ROADABILITY MACHINE OPERATOR Pulse 50 11/17/2020 2:22 PM ROADABILITY MACHINE OPERATOR Temperature - - Respiratory Rate - - Oxygen Saturation - - Inhaled Oxygen Concentration - - Weight 97.6 kg (215 lb 2.7 oz) 11/17/2020 2:22 PM ROADABILITY MACHINE OPERATOR Height 188 cm (6' 2.02) 11/17/2020 2:22 PM ROADABILITY MACHINE OPERATOR Body Mass Index 27.61 11/17/2020 2:22 PM ROADABILITY MACHINE OPERATOR documented in this encounter Consult [...] Elevated RVSP 45. Mitral valve disease with muin-yw-uakzwexz stenosis. ?? ASSESSMENT / PLAN #1 Chronic [...] in 3 months. Manuel Evans M.D. 11/17/20 ABILITY MACHINE OPERATOR documented in this encounter Plan of Treatment Not on filedocumented as of this encounter Procedures Procedure Name Priority Date/Time Associated Diagnosis Comme nts T4 (THYROXINE), TOT Routine 11/17/2020 8:51 AM Hypothyroidism Results for this ONLY, S ROADABILITY MACHINE OPERATOR procedure are i n the results section. documented in this encounter Results HOLTER MONITOR - IN CLINIC GRADUATING MACHINE OPERATOR (11/17/2020 3:20 PM ROADABILITY MACHINE OPERATOR) [facility] gist Method Time Signature Pause Longest 2.14 s HOLTER SENTINEL VE Max Per [id number] HOLTER Hour Time SENTINEL VE Total Beats 256 count HOLTER SENTINEL SVE Max Per 19 count HOLTER Hour SENTINEL Mean Heart 56 bpm HOLTER Rate SENTINEL Max Heart Rate [id number] HOLTER Time SENTINEL Max Heart Rate 83 bpm HOLTER SENTINEL SVE Percent 0 percent HOLTER Beats SENTINEL SVT Runs 0 count HOLTER SENTINEL Analysis Date 20,210,222 HOLTER SENTINEL Holter Pauses 40 count HOLTER SENTINEL Bradycardia 0 count HOLTER Runs SENTINEL Min Heart Rate 47 bpm HOLTER SENTINEL Tachycardia 0 count HOLTER Runs SENTINEL VT Runs 0 count HOLTER SENTINEL Recording Date [id number] HOLTER SENTINEL VE Percent 0 percent HOLTER Beats SENTINEL AF Count 0 count HOLTER SENTINEL SVE Max Per [id number] HOLTER Hour Time SENTINEL Min Heart Rate [id number] HOLTER Time SENTINEL SVE Total 118 count HOLTER Beats SENTINEL VE Max Per 28 count HOLTER Hour SENTINEL Specimen (Source) Anatomical Collection Method Collection Time Re ceived Time Location / / Volume Laterality 11/17/2020 3:18 PM ROADABILITY MACHINE OPERATOR Narrative This result has an attachment that is no t available. Manuel Evans M.D. CV CARDIAC SERVICES PROCEDUR ES Performing Organization Address City/State/ZIP Code Phon e Number HOLTER SENTINEL HOLTER SENTINEL NA (ABNORMAL) T4 (Thyroxine), Total Only (11/17/2020 8:51 AM ROADABILITY MACHINE OPERATOR) athologist Signature T4 4.4 (L) 4.5 - 11.7 11/17/2020 DTL (Thyroxine), mcg/dL 3:55 PM ROADABILITY MACHINE OPERATOR Total Only, S Specimen Anatomical Collection Method Collection Time Receive d Time (Source) Location / / Volume Laterality Blood (Blood, 11/17/2020 8:51 AM 11/17/19 21 3:13 Venous) ROADABILITY MACHINE OPERATOR PM ROADABILITY MACHINE OPERATOR Manuel Evans M.D. LAB BLOOD ADD-ON Performing Organization Address City/State/ZIP Code Phon e Number [facility] - [address] [place], [place] [address] [facility] [place] [address] [facility] [address] documented in this encounter Visit Diagnoses Diagnosis Chronic Systolic (Congestive) Heart Fail ure (HCC) - Primary Hypertension Essential Primary Beat Premature Ventricular Hypothyroidism documented in this encounter Additional Health Concerns Assessment Noted Time PHQ-9 Depression Total Score: 18 04/28/2018 11:27 AM C DT documented as of this encounter Care Teams Show Host/Hostess Relationship Specialty Start Date End Date Shayla Alford D.O. PCP - General Internal Medicine 05/22/[address] [address] documented as of this encounter
--- OUTSIDE RECORDS SUMMARY | 2022-05-28 07:13 | XMS_ITS | Encounter Summary ---
:1945 Author Organization [facility] Address [address] [place] [address] Care Team Providers Name Role Phone Shayla Alford D.O. Primary Care Provider [phone] Encounter Details Date Type Department Care Team Description 10/27/2020 Hospital Encounter Department of Alexys Failure Heart (HCC); Laboratory Medicine Shayla queen Hyperten sion Essential Primary; in [place] Diabetes Mellitus Type 2 Hyperglycemia ( HCC) [place] [address] [place] [phone] Social History Tobacco Use Types Packs/Day Years [...] do you attend christianity or Never 2021 taoist services? Do you [...] have completed or the highest Martin, MEd, SNOW BLOWER, CAYDEN) degree you have received? Sex Assigned [...] SYRINGE-NEEDLE,INSULIN,0. 0 5 ML (INSULIN [place] [facility]) amiodarone (PACERONE) 200 Take [...] by mouth tabletIndications: daily. 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 - 11/01/2020 10:17 AM ELECTRONIC PAGE MAKEUP SYSTEM OPERATOR Please call patient following information. Potassium and [...] by: Shayla Alford D.O. 11/01/20 10:16 AM ELECTRONIC PAGE MAKEUP SYSTEM OPERATOR TRONIC PAGE MAKEUP SYSTEM OPERATOR documented in this encounter Plan of Treatment Not on filedocumented as of this encounter Procedures Procedure Name Priority Date/Time Associated Diagnosis Comme nts HEMOGLOBIN A1C, B Routine 10/27/2020 10:32 Diabetes Mellitus T ype Results for this AM ELECTRONIC PAGE MAKEUP SYSTEM OPERATOR 2 Hyperglycemia (HCC) proced ure are in the results section. BASIC METABOLIC Routine 10/27/2020 10:32 Failure Heart ( HCC) Results for this PANEL, S/P AM ELECTRONIC PAGE MAKEUP SYSTEM OPERATOR Hypertension Essential proce dure are in Primary the results section. documented in this encounter Results (ABNORMAL) Hemoglobin A1c (10/27/2020 10:32 AM ELECTRONIC PAGE MAKEUP SYSTEM OPERATOR) P athologist Signature Hemoglobin A1c, 8.4 (H) 4.2 - 5.6 10/27/2020 [place] B % 11:22 AM ELECTRONIC PAGE MAKEUP SYSTEM OPERATOR Comment: Hemoglobin A1c values greater than or eq ual to 6.5 percent are diagnostic for diabetes mellitus. ?? Diagnosis should be confirmed by repeat testing. ??In diabet ic patients, HbA1c goals should be discussed with healthcar e provider. Specimen Anatomical Collection Method Collection Time Receive d Time (Source) Location / / Volume Laterality Blood (Blood, 10/27/2020 10:32 10/27/2020 Venous) AM ELECTRONIC PAGE MAKEUP SYSTEM OPERATOR 10:43 AM ELECTRONIC PAGE MAKEUP SYSTEM OPERATOR Shayla Alford D.O. LAB BLOOD ADD-ON Performing Organization Address City/State/ZIP Code Phon e Number [facility]- [address] [place] [address] [place] [address] System in [place] [address] (ABNORMAL) Basic Metabolic Panel (10/27/2020 10:32 AM ELECTRONIC PAGE MAKEUP SYSTEM OPERATOR) Analysis Performed At Patho logist Time Signature Potassium, P 4.5 3.6 - 5.2 10/27/2020 [place] mmol/L 11:28 AM ELECTRONIC PAGE MAKEUP SYSTEM OPERATOR Sodium, P 139 135 - 145 10/27/2020 [place] mmol/L 11:28 AM ELECTRONIC PAGE MAKEUP SYSTEM OPERATOR Chloride, P 103 98 - 107 10/27/2020 [place] mmol/L 11:28 AM ELECTRONIC PAGE MAKEUP SYSTEM OPERATOR Bicarbonate, P 26 22 - 29 10/27/2020 [place] mmol/L 11:28 AM ELECTRONIC PAGE MAKEUP SYSTEM OPERATOR Anion Gap, P 10 7 - 15 10/27/2020 [place] 11:28 AM ELECTRONIC PAGE MAKEUP SYSTEM OPERATOR BUN (Blood Urea 50 (H) 8 - 24 10/27/2020 [place] Nitrogen), P mg/dL 11:28 AM ELECTRONIC PAGE MAKEUP SYSTEM OPERATOR Creatinine 1.91 (H) 0.74 - 10/27/2020 [place] 1.35 mg/dL 11:28 AM ELECTRONIC PAGE MAKEUP SYSTEM OPERATOR eGFR-Black/Afri 38 (L) >=60 10/27/2020 [place] can [place] mL/min/BSA 11:28 AM ELECTRONIC PAGE MAKEUP SYSTEM OPERATOR Comment: ----ADDITIONAL INFORMATION---- Estimated GFR calculated using the 2009 CKD_EPI creatinine equation. eGFR Non-Black/ 33 (L) >=60 mL/min/BSA 10/27/2020 11:28 AM ELECTRONIC PAGE MAKEUP SYSTEM OPERATOR [place] Comment: ----ADDITIONAL INFORMATION---- Estimated GFR calculated using the 2009 CKD_EPI creatinine equation. Calcium, Total, P 9.1 8.8 - 10.2 mg/dL 10/27/2020 11:2 8 AM ELECTRONIC PAGE MAKEUP SYSTEM OPERATOR [place] Glucose, P 141 (H) 70 - 140 mg/dL 10/27/2020 11:28 AM ELECTRONIC PAGE MAKEUP SYSTEM OPERATOR [place] Specimen Anatomical Collection Method Collection Time Receive d Time (Source) Location / / Volume Laterality Blood (Blood, 10/27/2020 10:32 10/27/2020 Venous) AM ELECTRONIC PAGE MAKEUP SYSTEM OPERATOR 10:43 AM ELECTRONIC PAGE MAKEUP SYSTEM OPERATOR Shayla Alford D.O. LAB BLOOD ADD-ON Performing Organization Address City/State/ZIP Code Phon e Number [facility]- [address] [place] [address] [facility] [place] [address] System in [place] [address] documented in this encounter Visit Diagnoses Diagnosis Failure Heart (HCC) Hypertension Essential Primary Diabetes Mellitus Type 2 Hyperglycemia ( HCC) documented in this encounter Additional Health Concerns Assessment Noted Time PHQ-9 Depression Total Score: 18 04/28/2018 11:27 AM C DT documented as of this encounter Care Teams Social Worker Clinical Relationship Specialty Start Date End Date Shayla Alford D.O. PCP - General Internal Medicine 05/22/[address] [place] [address] documented as of this encounter
--- OUTSIDE RECORDS SUMMARY | 2022-05-28 07:13 | XMS_ITS | Encounter Summary ---
:1945 Author Organization [facility] Address [address] [place] [address] Care Team Providers Name Role Phone Shayla Alford D.O. Primary Care Provider [phone] Reason for Visit MRI/CAT/PET Scan (Routine) - Closed Specialty Diagnoses / Procedures Referred By Contact Refer red To Contact Radiology Diagnoses Unsteadiness Gait Disorder Non Orthopedic Yen Buchanan M.D., [facility] [place] Procedures MR Brain without IV Contrast MR Brain without and with IV Contrast MR Brain without IV Contrast CA MRI BRAIN WO CNTRST HC MRI BRAIN WO CNTRST CA MRI BRAIN WO/W CNTRST CA MRI BRAIN WO CNTRST M.B.A. [address] [place] [address] Referral ID Status Reason Start Date Expiration Date Visits Requ ested Visits Authorized [id number] Closed 09/13/2020 09/13/2021 1 1 Encounter Details Date Type Department Care Team Description 10/19/2020 Hospital Encounter Department of Chase Estes, Unsteadi ness Gait Radiology in [place] Non [place], [place] Pato, M.B.A. Orthopedic [address] [facility] [address] [place], [place] [phone] [address] Social History Tobacco Use Types Packs/Day [...] do you attend confucianist or Never 2021 protestant services? Do you [...] have completed or the highest Martin, MEd, RADIO ADJUSTER, CAYDEN) degree you have received? Sex [...] by mouth tabletIndications: daily. 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 documented in this encounter Results MR Brain without IV Contrast (10/19/2020 10:13 AM [employer]) Anatomical Region Laterality Modality Head, Brain, Neuroradiology RST LOS, Neuroradiology ARZ N/A Magnetic Resonance LOS, Neuroradiology FLA LOS Specimen (Source) Anatomical Collection Method Collection Time Re ceived Time Location / / Volume Laterality 10/19/2020 12:52 PM [employer] Impressions 10/19/2020 1:03 PM [employer] 1. No acute infarct. No new finding to explain clinical presentation. 2. New right ostiomeatal complex pattern sinus obstruction with fluid in the right frontal sinus, anterior ethmoid ai r cells right maxillary sinus. Direct visualization suggested to exclude obstr ucting lesion. Narrative 10/19/2020 1:03 PM [employer] EXAM: MR BRAIN WITHOUT IV CONTRAST COMPARISON: 09/17/2017 FINDINGS: Mild/moderate generalized supr atentorial and infratentorial volume loss with ex vacuo dilation of ventricle s. Patchy T2 hyperintensities compatible with nepb-jq-egpcgfzb leukoaraiosis. Pos toperative change both globes. Chronic [...] ventricle s. Patchy T2 hyperintensities compatible with cbax-lo-rkfyvahw leukoaraiosis. Pos toperative change both globes. Chronic [...] documented as of this encounter Care Teams Suction Operator Relationship Specialty Start Date End Date Shayla Alford D.O. PCP - General Internal Medicine 05/22/[address] [address] documented as of this encounter
--- OUTSIDE RECORDS SUMMARY | 2022-05-28 07:13 | XMS_ITS | Encounter Summary ---
:1945 Author Organization [facility] Address [address] [place] [address] Care Team Providers Name Role Phone Shayla Alford D.O. Primary Care Provider [phone] Encounter Details Date Type Department Care Team Description 11/17/2020 Hospital Encounter Department of Manuel Evans Systolic Laboratory Medicine Pato Barber (Congestive) Heart and Pathology, 200 [facility] Failure (HCC) [facility] in [facility] [address] [place] [phone] 200 [facility] (Work) [place], [place] [phone] [address] (Fax) [phone] Social History Tobacco Use Types Packs/Day Years [...] do you attend catholic or Never 2021 congregational services? Do you [...] have completed or the highest Martin, MEd, ROLL SHOP SUPERVISOR, [place]) degree you have received? [...] by mouth tabletIndications: daily. 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 NT-PRO B-TYPE Routine 11/17/2020 9:03 Chronic Systolic Results for this NATRIURETIC PEPTIDE AM RN HOME CARE (Congestive) Heart pr ocedure are in (BNP), S Failure (HCC) the results section. CBC WITH DIFFERENTIAL, B Routine 11/17/2020 9:03 Chronic Systo lic Results for this AM RN HOME CARE (Congestive) Heart procedure are in Failure (HCC) the results section. BUN (BLOOD UREA Routine 11/17/2020 9:03 Chronic Systolic Resul ts for this NITROGEN), S/P AM RN HOME CARE (Congestive) Heart procedu re are in Failure (HCC) the results section. ASPARTATE Routine 11/17/2020 9:03 Chronic Systolic Results for this AMINOTRANSFERASE (AST), AM RN HOME CARE (Congestive) Hear t procedure are in S/P Failure (HCC) the results section. THYROID-STIMULATING Routine 11/17/2020 9:03 Chronic Systolic R esults for this HORMONE-SENSITIVE AM RN HOME CARE (Congestive) Heart proc edure are in (S-TSH) Failure (HCC) the results section. SODIUM, S/P Routine 11/17/2020 9:03 Chronic Systolic Results for this AM RN HOME CARE (Congestive) Heart procedure are in Failure (HCC) the results section. POTASSIUM, S/P Routine 11/17/2020 9:03 Chronic Systolic Result s for this AM RN HOME CARE (Congestive) Heart procedure are in Failure (HCC) the results section. GLUCOSE, FASTING, S/P Routine 11/17/2020 9:03 Chronic Systolic Results for this AM RN HOME CARE (Congestive) Heart procedure are in Failure (HCC) the results section. CREATININE WITH EGFR, Routine 11/17/2020 9:03 Chronic Systolic Results for this S/P AM RN HOME CARE (Congestive) Heart procedure are in Failure (HCC) the results section. BICARBONATE, B/S/P Routine 11/17/2020 9:03 Chronic Systolic Re sults for this AM RN HOME CARE (Congestive) Heart procedure are in Failure (HCC) the results section. documented in this encounter Results (ABNORMAL) NT-Pro B-Type Natriuretic Peptide (BNP) (11/17/2020 9:03 AM RN HOME CARE) athologist Signature NT-Pro BNP 2558 (H) <=119 pg/mL 11/17/2020 DTL 10:08 AM RN HOME CARE Comment: NT-proBNP values less than 300 pg/mL [...] (Blood, 11/17/2020 9:03 AM 11/17/19 9:26 Venous) RN HOME CARE AM RN HOME CARE Manuel Evans M.D. LAB BLOOD ADD-ON Performing Organization Address City/State/ZIP Code Phon e Number [facility] - [address] [place], [place] [address] [facility] [place] [address] Laboratories-[facility] [address] Potassium (11/17/2020 9:03 AM RN HOME CARE) athologist Signature Potassium, S 4.3 3.6 - 5.2 11/17/2020 DTL mmol/L 10:08 AM RN HOME CARE Specimen Anatomical Collection Method Collection Time Receive d Time (Source) Location / / Volume Laterality Blood (Blood, 11/17/2020 9:03 AM 11/17/19 9:26 Venous) RN HOME CARE AM RN HOME CARE Manuel Evans M.D. LAB BLOOD ADD-ON Performing Organization Address City/State/[facility] Phon e Number [facility] - [address] [place], [place] [address] [facility] [place] [address] [facility] 200 [facility] Bicarbonate (11/17/2020 9:03 AM RN HOME CARE) P athologist Signature Bicarbonate, S 25 22 - 29 11/17/2020 DTL mmol/L 10:08 AM RN HOME CARE Specimen Anatomical Collection Method Collection Time Receive d Time (Source) Location / / Volume Laterality Blood (Blood, 11/17/2020 9:03 AM 11/17/19 9:26 Venous) RN HOME CARE AM RN HOME CARE Manuel Evans M.D. LAB BLOOD ADD-ON Performing Organization Address City/State/[facility] Code Phon e Number [facility] - [address] [place], [place] [address] [place] [address] (ABNORMAL) S-TSH (Thyroid-Stimulating Hormone - Sensitive) (11/17/2020 9:03 AM RN HOME CARE) athologist Signature TSH, Sensitive 19.4 (H) 0.3 - 4.2 11/17/2020 DTL mIU/L 10:07 AM RN HOME CARE Specimen Anatomical Collection Method Collection Time Receive d Time (Source) Location / / Volume Laterality Blood (Blood, 11/17/2020 9:03 AM 11/17/19 9:26 Venous) RN HOME CARE AM RN HOME CARE Manuel Evans M.D. LAB BLOOD ADD-ON Performing Organization Address City/State/[facility] Code Phon e Number [facility] - [address] [place], [place] [address] [facility] [place] [address] Laboratories-[address] (ABNORMAL) CBC with Differential, Blood (11/17/2020 9:03 AM RN HOME CARE) Patholo gist Method Time Signature Hemoglobin 10.2 (L) 13.2 - 11/17/2020 DTL 16.6 g/dL 9:34 AM RN HOME CARE Hematocrit 30.8 (L) 38.3 - 11/17/2020 DTL 48.6 % 9:34 AM RN HOME CARE Erythrocytes 3.33 (L) 4.35 - 11/17/2020 DTL 5.65 9:34 AM RN HOME CARE x10(12)/L MCV 92.5 78.2 - 11/17/2020 DTL 97.9 fL 9:34 AM RN HOME CARE RBC Distrib Width 12.6 11.8 - 11/17/2020 DTL 14.5 % 9:34 AM RN HOME CARE Platelet Count 167 135 - 317 11/17/2020 DTL x10(9)/L 9:34 AM RN HOME CARE Leukocytes 6.6 3.4 - 9.6 11/17/2020 DTL x10(9)/L 9:34 AM RN HOME CARE Neutrophils 4.75 1.56 - 11/17/2020 DTL 6.45 9:34 AM RN HOME CARE x10(9)/L Lymphocytes 0.96 0.95 - 11/17/2020 DTL 3.07 9:34 AM RN HOME CARE x10(9)/L Monocytes 0.44 0.26 - 11/17/2020 DTL 0.81 9:34 AM RN HOME CARE x10(9)/L Eosinophils 0.35 0.03 - 11/17/2020 DTL 0.48 9:34 AM RN HOME CARE x10(9)/L Basophils 0.06 0.01 - 11/17/2020 DTL 0.08 9:34 AM RN HOME CARE x10(9)/L Specimen Anatomical Collection Method Collection Time Receive d Time (Source) Location / / Volume Laterality Blood (Blood, 11/17/2020 9:03 AM 11/17/19 21 9:26 Venous) RN HOME CARE AM RN HOME CARE Manuel Evans M.D. LAB BLOOD ADD-ON Performing Organization Address City/State/ZIP Code Phon e Number [facility] - [address] [place], [place] [address] [facility] [place] [address] [facility] [address] (ABNORMAL) Lipid Panel (11/17/2020 9:03 AM RN HOME CARE) athologist Signature Cholesterol, 118 mg/dL 11/17/2020 DTL Total 10:07 AM RN HOME CARE Comment: ----REFERENCE VALUE---- Desirable: < 200 Borderline high: 200 - 239 High: > or = 240 Triglycerides 90 mg/dL 11/17/2020 10:07 AM RN HOME CARE DT L Comment: ----REFERENCE VALUE---- Normal: <150 Borderline high: 150-199 High: 200-499 Very high: > or =500 Cholesterol, HDL, S 34 (L) >=40 mg/dL 11/17/2020 10:07 AM RN HOME CARE DTL Calculated LDL 66 mg/dL 11/17/2020 10:07 AM RN HOME CARE D TL Comment: ----REFERENCE VALUE---- Desirable: <100 Above Desirable: 100-129 Borderline high: 130-159 High: 160-189 Very high: > or =190 Cholesterol, Non-HDL, Calculated 84 mg/dL 021 10:07 AM RN HOME CARE DTL Comment: ----REFERENCE VALUE---- Desirable: <130 Above Desirable: 130-159 Borderline high: 160-189 High: 190-219 Very high: > or =220 Specimen Anatomical Collection Method Collection Time Receive d Time (Source) Location / / Volume Laterality Blood (Blood, 11/17/2020 9:03 AM 11/17/19 9:26 Venous) RN HOME CARE AM RN HOME CARE Manuel Evans M.D. LAB BLOOD ADD-ON Performing Organization Address City/[facility] Phon e Number [facility] - [address] [place] [address] (ABNORMAL) BUN (Blood Urea Nitrogen) (11/17/2020 9:03 AM RN HOME CARE) athologist Signature BUN (Blood Urea 57 (H) 8 - 24 11/17/2020 DTL Nitrogen), S mg/dL 10:08 AM RN HOME CARE Specimen Anatomical Collection Method Collection Time Receive d Time (Source) Location / / Volume Laterality Blood (Blood, 11/17/2020 9:03 AM 11/17/19 9:26 Venous) RN HOME CARE AM RN HOME CARE Manuel Evans M.D. LAB BLOOD ADD-ON Performing Organization Address City/[facility] Phon e Number [facility] - [address] AST (Aspartate Aminotransferase) (11/17/2020 9:03 AM RN HOME CARE) [facility] gist Method Time Signature Aspartate 31 8 - 48 11/17/2020 DTL Aminotransferase U/L 10:08 AM RN HOME CARE (AST), S Specimen Anatomical Collection Method Collection Time Receive d Time (Source) Location / / Volume Laterality Blood (Blood, 11/17/2020 9:03 AM 11/17/19 9:26 Venous) RN HOME CARE AM RN HOME CARE Manuel Evans M.D. LAB BLOOD ADD-ON Performing Organization Address City/[facility] Phon e Number [facility] - [address] (ABNORMAL) Creatinine with Estimated GFR (11/17/2020 9:03 AM RN HOME CARE) Analysis Performed At [facility] logist Time Signature Creatinine 1.86 (H) 0.74 - 11/17/2020 DTL 1.35 mg/dL 10:07 AM RN HOME CARE eGFR-Non 34 (L) >=60 11/17/2020 DTL Black/ mL/min/BSA 10:07 AM RN HOME CARE [place] Comment: ----ADDITIONAL INFORMATION---- Estimated GFR calculated using the 2009 CKD_EPI creatinine equation. eGFR-Black/ 39 (L) >=60 mL/min/BSA 2020 10:07 AM RN HOME CARE DTL Comment: ----ADDITIONAL INFORMATION---- Estimated GFR calculated using the 2009 CKD_EPI creatinine equation. Specimen Anatomical Collection Method Collection Time Receive d Time (Source) Location / / Volume Laterality Blood (Blood, 11/17/2020 9:03 AM 11/17/19 9:26 Venous) RN HOME CARE AM RN HOME CARE Manuel Evans M.D. LAB BLOOD ADD-ON Performing Organization Address City/State/[facility] Code Phon e Number [facility] - [address] DTL [place] [id number] [address] (ABNORMAL) Glucose, Fasting (11/17/2020 9:03 AM RN HOME CARE) P athologist Signature Glucose, P 219 (H) 70 - 100 11/17/2020 DTL mg/dL 9:56 AM RN HOME CARE Last Intake 1 hr 11/17/2020 DTL 9:26 AM RN HOME CARE Specimen Anatomical Collection Method Collection Time Receive d Time (Source) Location / / Volume Laterality Blood (Blood, 11/17/2020 9:03 AM 11/17/19 9:26 Venous) RN HOME CARE AM RN HOME CARE Manuel Evans M.D. LAB BLOOD NON ADD-ON Performing Organization Address [facility] Phon e Number [facility] - [address] [place] [address] Sodium (11/17/2020 9:03 AM RN HOME CARE) P athologist Signature Sodium, S 140 135 - 145 11/17/2020 DTL mmol/L 10:08 AM RN HOME CARE Specimen Anatomical Collection Method Collection Time Receive d Time (Source) Location / / Volume Laterality Blood (Blood, 11/17/2020 9:03 AM 11/17/19 9:26 Venous) RN HOME CARE AM RN HOME CARE Manuel Evans M.D. LAB BLOOD ADD-ON Performing Organization Address City/[facility] Phon e Number [facility] - [id number] [place] [address] documented in this encounter Visit Diagnoses Diagnosis Chronic Systolic (Congestive) Heart Fail ure (HCC) documented in this encounter Additional Health Concerns Assessment Noted Time PHQ-9 Depression Total Score: 18 04/28/2018 11:27 AM C DT documented as of this encounter Care Teams Teacher Adult Education Relationship Specialty Start Date End Date Shayla Alford D.O. PCP - General Internal Medicine 05/22/[address] [place] [address] documented as of this encounter
--- OUTSIDE RECORDS SUMMARY | 2022-05-28 07:13 | XMS_ITS | Encounter Summary ---
:1945 Author Organization [facility] Address [address] [place] [address] Care Team Providers Name Role Phone Shayla Alford D.O. Primary Care Provider [phone] Reason for Referral Outpatient (Routine) - Closed Specialty Diagnoses / Procedures Referred By Contact Refer red To Contact Diagnoses Chronic Systolic (Congestive) Heart Failure (HCC) Manuel Evans M.D. [facility] Procedures Echo Transthoracic (TTE) [address] [place] [address] Referral ID Status Reason Start Date Expiration Date Visits Requ ested Visits Authorized [id number] Closed 06/06/2020 06/06/2021 1 1 NG INVESTIGATOR Reason for Visit Outpatient (Routine) - Closed Specialty Diagnoses / Procedures Referred By Contact Refer red To Contact Diagnoses Chronic Systolic (Congestive) Heart Failure (HCC) Manuel Evans M.D. [facility] Procedures Echo Transthoracic (TTE) [address] [place], [place] [address] Referral ID Status Reason Start Date Expiration Date Visits Requ ested Visits Authorized [id number] Closed 06/06/2020 06/06/2021 1 1 Encounter Details Date Type Department Care Team Description 11/17/2020 Hospital Encounter Department of Cristina Chronic Systolic Cardiovascular Manuel Barber M.D. (Congestive) Heart Diseases in [place] [address] [address] Failure (HCC) [place], [place] [address] [address] [place], [place] [phone] (Work) [phone] Social History Tobacco Use Types Packs/Day Years [...] do you attend yarsanism or Never 2021 jain services? Do you [...] completed or the highest Martin, MEd, MACHINE COIL ASSEMBLER, [place]) degree you have received? Sex [...] by mouth tabletIndications: daily. 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 documented in this encounter Results (TTE) 2D ECHO DOPPLER COLOR (11/17/2020 11:23 AM GAMING INVESTIGATOR) [facility] Method Time Signature Ejection Fraction 50 [...] / / Volume Laterality 11/17/2020 9:48 AM GAMING INVESTIGATOR Impressions 11/17/2020 2:48 PM GAMING INVESTIGATOR Intravenous Lumason ultrasound enhancement agent(s) administered to [...] effusion. For the complete report, see the [facility] Documents. Narrative 11/17/2020 2:48 PM GAMING INVESTIGATOR For the complete report, see the [facility] Documents. Final Impressions 1. Mild-moderately enlarged left [...] sulfur hexafluoride microspheres Given 11/17/2020 11:53 AM GAMING INVESTIGATOR 1 .6 mL injection (LUMASON) intravenous, As needed, contrast, Starting on Fri11/17/20 at 1153, See protocol. Reconstitute each 25 mg vial with 5 mL NS. documented in this encounter Additional Health Concerns Assessment Noted Time PHQ-9 Depression Total Score: 18 04/28/2018 11:27 AM C DT documented as of this encounter Care Teams Machine Biller Relationship Specialty Start Date End Date Shayla Alford D.O. PCP - General Internal Medicine 05/22/[address] [phone] documented as of this encounter
--- OUTSIDE RECORDS SUMMARY | 2022-05-28 07:13 | XMS_ITS | Encounter Summary ---
:1945 Author Organization [facility] Address [address] [place] [address] Care Team Providers Name Role Phone Shayla Alford D.O. Primary Care Provider [phone] Encounter Details Date Type Department Care Team Description 11/22/2020 Hospital Encounter Department of José Luis Alford thyroidism Laboratory Medicine in [place] Mcguire [place], [place] [address] [place] [phone] Social History Tobacco Use Types [...] do you attend bahai or Never 2021 anabaptism services? Do you [...] have completed or the highest Martin, MEd, BROTH MIXER, CAYDEN) degree you have received? Sex [...] mouth tabletIndications: daily. 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), Diabetes Mellitus Type 2 (HCC), Hypertension [...] Shayla Alford D.O. - 11/24/2020 9:33 AM EVP GLOBAL PRODUCT LEADERSHIP Please call patient following information. We will need to increase your thyroid medication further up. From 50 mcg daily to 75 mcg daily. Prescription will be sent to your pharmacy for pickup. Keep your 50 mcg tablets for future use. Electronically signed by: Shayla Alford D.O. 11/24/20 9:32 AM EVP GLOBAL PRODUCT LEADERSHIP GLOBAL PRODUCT LEADERSHIP documented in this encounter Plan of Treatment Not on filedocumented as of this encounter Procedures Procedure Name Priority Date/Time Associated Diagnosis Comme nts T3 Routine 11/22/2020 10:57 Hypothyroidism Results f or this (TRIIODOTHYRONINE), AM EVP G[employer] PRODUCT LEADERSHIP procedur e are in FREE, S the results section. THYROID-STIMULATING Routine 11/22/2020 10:57 Hypothyroidism Re sults for this HORMONE-SENSITIVE AM EVP [employer] PRODUCT LEADERSHIP procedure are in (S-TSH) the results section. T4 (THYROXINE), Routine 11/22/2020 10:57 Hypothyroidism Result s for this FREE, S AM EVP [employer] PRODUCT LEADERSHIP procedure are i n the results section. documented in this encounter Results T4 (Thyroxine), Free (11/22/2020 10:57 AM EVP [employer] PRODUCT LEADERSHIP) P athologist Signature T4 (Thyroxine), 0.9 0.9 - 1.7 11/22/2020 [place] Free, P ng/dL 11:49 AM EVP [employer] PRODUCT LEADERSHIP Comment: Biotin has been identified by the [...] Blood (Blood, 11/22/2020 10:57 11/22/2020 Venous) AM EVP [employer] PR[employer] LEADERSHIP 10:58 AM EVP GLO[employer] PRODUCT LEADERSHIP Shayla Alford D.O. LAB BLOOD ADD-ON Performing Organization Address City/State/ZIP Code Phon e Number [facility]- [address] [place] [address] [place] [address] [place] [address] (ABNORMAL) T3 (Triiodothyronine), Free (11/22/2020 10:57 AM EVP [employer] PR[employer] LEADERSHIP) athologist Signature T3 2.4 (L) 2.8 - 4.4 11/23/2020 [facility] (Triiodothyron pg/mL 9:17 AM EVP GLOBAL PRODUCT LEADERSHIP ine), Free, S Specimen Anatomical Collection Method Collection Time Receive d Time (Source) Location / / Volume Laterality Blood (Blood, 11/22/2020 10:57 11/23/2020 7:57 Venous) AM EVP [employer]LO[employer] PRODUCT LEADERSHIP AM EVP GLOBAL PRODUCT LEADERSHIP Shayla Alford D.O. LAB BLOOD ADD-ON Performing Organization Address City/State/ZIP Code Phon e Number [facility] [address] [place], [place] [address] [place] [address] [place] [address] Laboratory Medicine and Pathology [address] [place] (ABNORMAL) S-TSH (Thyroid-Stimulating Hormone - Sensitive) (11/22/2020 10:57 AM EVP [employer] PRODUCT LEADERSHIP) P athologist Signature TSH, Sensitive 14.0 (H) 0.3 - 4.2 11/22/2020 [place] mIU/L 11:49 AM EVP GLOBAL PRODUCT LEADERSHIP Specimen Anatomical Collection Method Collection Time Receive d Time (Source) Location / / Volume Laterality Blood (Blood, 11/22/2020 10:57 11/22/2020 Venous) AM EVP [employer] PR[employer] LEADERSHIP 10:58 AM EVP GLOBAL PRODUCT LEADERSHIP Shayla Alford D.O. LAB BLOOD ADD-ON Performing Organization Address City/State/ZIP Code Phon e Number [facility]- [address] [place] [address] [place] [address] System [place] [address] documented in this encounter Visit Diagnoses Diagnosis Hypothyroidism documented in this encounter Additional Health Concerns Assessment Noted Time PHQ-9 Depression Total Score: 18 04/28/2018 11:27 AM C DT documented as of this encounter Care Teams [employer] Humanities Teacher Relationship Specialty Start Date End Date Shayla Alford D.O. PCP - General Internal Medicine 05/22/[address] [place] [address] documented as of this encounter
--- OUTSIDE RECORDS SUMMARY | 2022-05-28 07:13 | XMS_ITS | Encounter Summary ---
:1945 Author Organization [facility] Address [address] [place] [address] Care Team Providers Name Role Phone Shayla Alford D.OMauro Primary Care Provider [phone] Reason for Visit Reason Comments Med Refill Encounter Details Date Type Department Care Team Description 11/27/2020 Refill Department of Internal Medicine Shayla Rob, [facility] [address] [place] [address] [place] [address] (Wo rk) Social History Tobacco Use Types [...] do you attend temple or Never 2021 sikhism services? Do you [...] have completed or the highest Martin, MEd, BINDERY MACHINE SETTER/SET UP OPERATOR, CAY[place]) degree you have received? Sex Assigned at Date Recorded Male 05/21/2018 2:34 PM CDT documented as of this encounter Miscellaneous Notes Telephone Encounter - Whitney Chavez - 11/27/2020 9:13 AM CST Primary Provider: Shayla Alford D.O. Name of Medication: Trulicity Strength: 0.75mg/0.5mL injection Frequency: 1 injection per week Pharmacy (include location): [facility] [place] Patient states that this was to have been called in last week and the pharmacy states they have not received this. Patient has not been able to get this filled since provider called it in. 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 PCP - General Internal Medicine 05/22/[address] [phone] documented as of this encounter
--- OUTSIDE RECORDS SUMMARY | 2022-05-28 07:13 | XMS_ITS | Encounter Summary ---
:1945 Author Organization [facility] Address [address] [place] [address] Care Team Providers Name Role Phone Shayla Alford D.O. Primary Care Provider [phone] Reason for Referral Outpatient (Routine) - Closed Specialty Diagnoses / Procedures Referred By Contact Refer red To Contact Community Internal [facility] Bernadette Mcguire D.O. [address] [place] [phone] Referral ID Status Reason Start Date Expiration Date Visits Requ ested Visits Authorized [id number] Closed 11/21/2020 11/21/2021 1 1 Scheduling Instructions One hour due to multiple concerns NEERING AND OPERATIONS DIRECTOR Reason for Visit Reason Comments Thyroid Problem Reports abnormal TSH Med Management Diabetes Mellitus Outpatient (Routine) - Closed Specialty Diagnoses / Procedures Referred By Contact Refer red To Contact Community Internal Diagnoses Failure Heart (HCC) Hypertension Essential Primary Diabetes Mellitus Type 2 Hyperglycemia (HCC) Pancreatitis Chronic Recurrent (HCC) ARMAAN Alford [facility] Tulio Mcguire [address] [place] [phone] Referral ID Status Reason Start Date Expiration Date Visits Requ ested Visits Authorized [id number] Closed 10/20/2020 10/20/2021 1 1 Encounter Details Date Type Department Care Team Description 11/21/2020 Office Visit Department of Internal Rocío Alvarado Mellitus Type 2 Hyperglycemia (HCC) (Primary Dx); [place] .[place]. Failure Heart (HCC); [place] [address] Hypertension Essential Primary; [address] [place], [place] Pancreatitis Chronic Recurre nt (HCC); [place] [address] Hypothyroidism; [phone] Screening Cancer Colon Social History [...] do you attend quaker or Never 2021 taoism services? Do you [...] completed or the highest Martin, MEd, COUNTER TENDER, CAYDEN) degree you have received? Sex Assigned at Date Recorded Male 05/21/2018 2:34 PM CDT documented as of this encounter Last Filed Vital Signs Vital Sign Reading Time Taken Comments Blood Pressure 144/66 11/21/2020 4:03 PM ENGINEERING AND OPERATIONS DIRECTOR Pulse 56 11/21/2020 4:03 PM ENGINEERING AND OPERATIONS DIRECTOR Temperature 36.1 ??C (97 ??F) 11/21/2020 4:03 PM ENGINEERING AND OPERATIONS DIRECTOR Respiratory Rate - - Oxygen Saturation 98% 11/21/2020 4:03 PM ENGINEERING AND OPERATIONS DIRECTOR Inhaled Oxygen Concentration - - Weight 98.8 kg (217 lb 13 oz) 11/21/2020 4:03 PM ENGINEERING AND OPERATIONS DIRECTOR Height - - Body Mass Index 27.95 11/17/2020 2:22 PM ENGINEERING AND OPERATIONS DIRECTOR documented in this encounter Progress Notes Shayla [...] #3 Failure Heart (HCC). 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 Continue to monitor [...] behalf by Sarai Cason, a trained medical doctor nuclear medicine. The creation of this recordis based on the scribe remotely listening to the visit and the provider's statements to them. This do cument has been checked and approved by the attending provider. Time spent 55 minutes NEERING AND OPERATIONS DIRECTOR documented in this encounter Plan of Treatment Scheduled Referrals Name Type Priority Associated Diagnoses Order [facility] Internal Outpatient Referral Routine Ex pected: Medicine office 12/05/2020 visit (clinic) (Approximate) , Expires: 11/21/2023 documented as of this encounter Results T4 (Thyroxine), Free (11/22/2020 10:57 AM ENGINEERING AND OPERATIONS DIRECTOR) P athologist Signature T4 (Thyroxine), 0.9 0.9 - 1.7 11/22/2020 [facility] Free, P ng/dL 11:49 AM ENGINEERING AND OPERATIONS DIRECTOR Comment: Biotin has been identified by the capri enriquez as a potential interfering substance. ??Higher concentr ations of biotin may be found in multivitamins, hair/nail supple ments, and workout supplements. ??If the result does not ma [facility] clinical observations, repeat testing after patient refrains fr om the use of supplements for at least 12 hours. Specimen Anatomical Collection Method Collection Time Receive d Time (Source) Location / / Volume Laterality Blood (Blood, 11/22/2020 10:57 11/22/2020 Venous) AM ENGINEERING AND OPERATIONS DIRECTOR 10:58 AM ENGINEERING AND OPERATIONS DIRECTOR Shayla Alford D.O. LAB BLOOD ADD-ON Performing Organization Address City/State/ZIP Code Phon e Number [facility]- [address] [place] [address] [place] [address] System in [place] [address] (ABNORMAL) T3 (Triiodothyronine), Free (11/22/2020 10:57 AM ENGINEERING AND OPERATIONS DIRECTOR) P athologist Signature T3 2.4 (L) 2.8 - 4.4 11/23/2020 [facility] (Triiodothyron pg/mL 9:17 AM ENGINEERING AND OPERATIONS DIRECTOR ine), Free, S Specimen Anatomical Collection Method Collection Time Receive d Time (Source) Location / / Volume Laterality Blood (Blood, 11/22/2020 10:57 11/23/2020 7:57 Venous) AM ENGINEERING AND OPERATIONS DIRECTOR AM ENGINEERING AND OPERATIONS DIRECTOR Shayla Alford D.O. LAB BLOOD ADD-ON Performing Organization Address City/State/ZIP Code Phon e Number [facility] [address] [place], [place] [address] [place] [address] CENTER [facility] [place] [address] Laboratory Medicine and Pathology [address] [place] (ABNORMAL) S-TSH (Thyroid-Stimulating Hormone - Sensitive) (11/22/2020 10:57 AM ENGINEERING AND OPERATIONS DIRECTOR) athologist Signature TSH, Sensitive 14.0 (H) 0.3 - 4.2 11/22/2020 [facility] mIU/L 11:49 AM ENGINEERING AND OPERATIONS DIRECTOR Specimen Anatomical Collection Method Collection Time Receive d Time (Source) Location / / Volume Laterality Blood (Blood, 11/22/2020 10:57 11/22/2020 Venous) AM ENGINEERING AND OPERATIONS DIRECTOR 10:58 AM ENGINEERING AND OPERATIONS DIRECTOR Shayla Alford D.O. LAB BLOOD ADD-ON Performing Organization Address City/State/ZIP Code Phon e Number [facility]- [address] [place] [address] [facility] [place] [address] System in [place] [address] documented in this encounter Visit Diagnoses Diagnosis Diabetes Mellitus Type 2 Hyperglycemia ( HCC) - Primary Failure Heart (HCC) Hypertension Essential Primary Pancreatitis Chronic Recurrent (HCC) Hypothyroidism Screening Cancer Colon documented in this encounter Additional Health Concerns Assessment Noted Time PHQ-9 Depression Total Score: 18 04/28/2018 11:27 AM C DT documented as of this encounter Care Teams Blood Bank Assistant Relationship Specialty Start Date End Date Shayla Alford D.O. PCP - General Internal Medicine 05/22/[address]199 [place] [address] documented as of this encounter
--- OUTSIDE RECORDS SUMMARY | 2022-05-28 07:13 | XMS_ITS | Encounter Summary ---
:1945 Author Organization [facility] Address [address] [place] [address] Care Team Providers Name Role Phone Shayla Alford D.O. Primary Care Provider [phone] Reason for Referral Outpatient (Routine) - Closed Specialty Diagnoses / Procedures Referred By Contact Refer red To Contact Diagnoses Chronic Systolic (Congestive) Heart Failure (HCC) Manuel Evans M.D. [facility] Procedures ECG Heart rhythm monitor (Holter) [address] [place] [address] Referral ID Status Reason Start Date Expiration Date Visits Requ ested Visits Authorized [id number] Closed 11/17/2020 11/17/2021 1 1 CHEMISTRY ANALYST Reason for Visit Outpatient (Routine) - Closed Specialty Diagnoses / Procedures Referred By Contact Refer red To Contact Diagnoses Chronic Systolic (Congestive) Heart Failure (HCC) Manuel Evans M.D. [facility] Procedures ECG Heart rhythm monitor (Holter) [address] [place] [address] Referral ID Status Reason Start Date Expiration Date Visits Requ ested Visits Authorized [id number] Closed 11/17/2020 11/17/2021 1 1 Encounter Details Date Type Department Care Team Description 11/17/2020 Hospital Encounter Department of Jigar Evans Systolic Cardiovascular Manuel Barber M.D. (Congestive) Heart Diseases in [place], [facility] [address] Failure (HCC) [place], [place] [address] [address] [place], [place] [phone] [address] (Work) [phone] Social History Tobacco Use Types Packs/Day Years [...] do you attend sabianist or Never 2021 yarsanism services? Do you [...] completed or the highest Martin, MEd, SENIOR MANAGER ASSET PROTECTION, CAYDEN) degree you have received? Sex Assigned [...] by mouth tabletIndications: daily. 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 documented in this encounter Results HOLTER MONITOR - IN CLINIC PROJECT CONSTRUCTION ASSISTANT MANAGER (11/17/2020 3:20 PM WET CHEMISTRY ANALYST) [facility] gist Method Time Signature Pause Longest 2.14 s HOLTER SENTINEL VE Max Per [id number] HOLTER Hour Time SENTINEL VE Total Beats 256 count HOLTER SENTINEL SVE Max Per 19 count HOLTER Hour SENTINEL Mean Heart 56 bpm HOLTER Rate SENTINEL Max Heart Rate [id number] HOLTER Time SENTINEL Max Heart Rate 83 bpm HOLTER SENTINEL SVE Percent 0 percent HOLTER Beats SENTINEL SVT Runs 0 count HOLTER SENTINEL Analysis Date 20,210,222 HOLTER SENTINEL Holter Pauses 40 count HOLTER SENTINEL Bradycardia 0 count HOLTER Runs SENTINEL Min Heart Rate 47 bpm HOLTER SENTINEL Tachycardia 0 count HOLTER Runs SENTINEL VT Runs 0 count HOLTER SENTINEL Recording Date [id number] HOLTER SENTINEL VE Percent 0 percent HOLTER Beats SENTINEL AF Count 0 count HOLTER SENTINEL SVE Max Per [id number] HOLTER Hour Time SENTINEL Min Heart Rate [id number] HOLTER Time SENTINEL SVE Total 118 count HOLTER Beats SENTINEL VE Max Per 28 count HOLTER Hour SENTINEL Specimen (Source) Anatomical Collection Method Collection Time Re ceived Time Location / / Volume Laterality 11/17/2020 3:18 PM WET CHEMISTRY ANALYST Narrative This result has an attachment that [...] as of this encounter Care Teams Paving Block Cutter Relationship Specialty Start Date End Date Shayla Alford D.O. PCP - General Internal Medicine 05/22/20 [address], [place] [address] documented as of this encounter
--- OUTSIDE RECORDS SUMMARY | 2022-05-28 07:13 | XMS_ITS | Encounter Summary ---
:1945 Author Organization [facility] Address [address] [place] [address] Care Team Providers Name Role Phone Shayla Alford D.O. Primary Care Provider [phone] Encounter Details Date Type Department Care Team Description 11/17/2020 Hospital Encounter Department of Manuel Evans Systolic Radiology, Agustín Barber M.D. (Congestive) Heart [facility], in 200 [facility] Failure (HCC) [facility] [address] 200 [facility] [phone] [place], [place] (Work) [phone] Social History Tobacco Use Types Packs/Day Years [...] completed or the highest Martin, MEd, BACK LINE COOK, CAYDEN) degree you have received? Sex [...] 0 5 ML (INSULIN [facility]YR[facility]) amiodarone (PACERONE) 200 Take 200 mg by [...] by mouth tabletIndications: daily. 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 documented in this encounter Results DX Chest AP or PA and Lateral 2 Views (11/17/2020 9:31 AM RING SPINNER) Anatomical Region Laterality Modality Chest, Thoracic RST LOS, Thoracic ARZ LOS, Thoracic N/A Digital Radiography FLA LOS Specimen (Source) Anatomical Collection Method Collection Time Re ceived Time Location / / Volume Laterality 11/17/2020 9:50 AM RING SPINNER Impressions 11/17/2020 9:51 AM RING SPINNER In the interval from the prior study of 05/18/2020, a small right pleural effusion has decreased in size. Trace left pleural effusion has likely resolved. No definite additional changes . Calcified aorta. Borderline size of cardiac silhouette with slight pulmonary venous hypertension. Mitral annular calcification. Degenerative changes thor acic spine. Narrative 11/17/2020 9:51 AM RING SPINNER EXAM: ??DX CHEST AP OR PA AND [...] as of this encounter Care Teams Mechanical Project Manager Relationship Specialty Start Date End Date Shayla Alford D.O. PCP - General Internal Medicine 05/22/[address] [address] documented as of this encounter
--- OUTSIDE RECORDS SUMMARY | 2022-05-28 07:13 | XMS_ITS | Encounter Summary ---
:1945 Author Organization [facility] Address [address] [place] [address] Care Team Providers Name Role Phone Shayla Alford D.O. Primary Care Provider [phone] Reason for Referral MRI/CAT/PET Scan (Routine) - Closed Specialty Diagnoses / Procedures Referred By Contact Refer red To Contact Radiology Diagnoses Pancreatitis Chronic (HCC) Emil Zurita M.D. [facility] Procedures MR Abdomen MRCP without IV Contrast [address] [place], [place] [address] Referral ID Status Reason Start Date Expiration Date Visits Requ ested Visits Authorized [id number] Closed 12/07/2020 12/07/2021 1 1 EDICAL SERVICE ENGINEER Reason for Visit Appointment Request (Routine) - Closed Specialty Diagnoses / Referred By Contact Referred To Procedures Contact Gastroenterology and Diagnoses Pancreatitis Chronic (HCC) Emil Zurita Hepatology [place] [address] [place] [address] Referral ID Status Reason Start Date Expiration Date Visits Requ ested Visits Authorized [id number] Closed 11/27/2020 11/27/2021 1 1 Encounter Details Date Type Department Care Team Description 12/05/2020 Virtual Visit Division of Greyson Zurita C hronic Gastroenterology in [place]oda Stein (HCC) (Primary Dx) [place], [place] 200 [facility] [address] [place] [address] [phone] Social History Tobacco Use Types Packs/Day Years [...] do you attend tenriism or Never 2021 lutheran services? Do you [...] completed or the highest Martin, MEd, LEGAL INVESTIGATOR, CAYDEN) degree you have received? Sex Assigned at Date Recorded Male 05/21/2018 2:34 PM CDT documented as of this encounter Progress Notes Emil Zurita M.D. - 12/05/2020 4:00 PM CST Gastroenterology and Hepatology Virtual Visit (COVID-19 Pandemic) Date of Consultation: 12/07/2020 This patient was virtually interviewed via real time audio in the patient's home by Emil Zurita M.D. at [facility]. The history and findings below are based on review of available medical records and a virtual conversation with the patient. This Virtual Visit was performed during theCOVID- emergency, when many states had issued [id number] orders. Referring Physician: Emil Zurita M.D. Primary Care Providers: Shayla Alford D.O. (General) [address] [facility] [address] Chief Complaint/Reason for Consult: No primary diagnosis found. History of Present Illness: Mr. Costa is a 75 y.o. male who is being seen remotely today. Mr. 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 He suffered an OH in March 2020 and is recovering from that. About 2 months back he noticed his bowel habits changed f rom what was usually diarrhea to him being constipated. He has discontinued the Creon, and is using 6 oz of prune juice daily which has helped somewhat. He has lost about 30-40 lbs weight since the OH.He has noted to have a elevated TSH [...] with local provider(s). Emil Zurita M.D. 12/07/2020 EDICAL SERVICE ENGINEER documented in this encounter Plan of [...] eGFR-Black/Afri 42 (L) >=60 12/12/2020 [place] can [place] mL/min/BSA 1:35 PM CDT Comment: ----ADDITIONAL INFORMATION---- Estimated GFR calculated using the 2009 CKD_EPI creatinine equation. eGFR Non-Black/ 37 (L) >=60 mL/min/BSA 12/12/2020 1:35 PM CDT [place] Comment: ----ADDITIONAL INFORMATION---- Estimated GFR calculated using the 2009 CKD_EPI creatinine equation. Specimen Anatomical Collection Method Collection Time Receive d Time (Source) Location / / Volume Laterality Blood (Blood, 12/12/2020 12:37 12/12/2020 Venous) PM CDT 12:52 PM CDT Authorizing Provider Result Deloris Zurita M.D. LAB BLOOD ADD-ON Performing Organization Address City/[facility]/ZIP Code Phon e Number [facility]- [address] [place] [address] [place] [address] System in [place] [address] [facility] Prothrombin Time (PT) (12/12/2020 12:37 PM [...] Code Phon e Number [facility]- [address] [place] [address] [place] [address] System in [place] [address] [facility] 25-Hydroxyvitamin D2 and D3 (12/12/2020 12:37 PM CDT) P athologist Signature 25-Hydroxy D2 <4.0 ng/mL 12/14/2020 [facility] 1:23 AM CDT 25-Hydroxy D3 35 ng/mL 12/14/2020 [facility] 1:23 AM CDT 25-Hydroxy D 35 ng/mL [facility]:23 AM CDT Comment: ----REFERENCE VALUE---- 25-HYDROXY D TOTAL (D2+D3) Optimum level s in the healthy population are 20-50, patients with bone disease may benefit from higher levels within this r stan. ----ADDITIONAL INFORMATION---- This test was developed and its performa nce characteristics determined by [facility] in a manner consistent with CLIA requirements. This test has not been cleared or approved by the [place] d and Drug Administration. Specimen Anatomical Collection Method Collection Time Receive d Time (Source) Location / / Volume Laterality Blood (Blood, 12/12/2020 12:37 12/13/2020 7:48 Venous) PM CDT AM CDT Emil Zurita M.D. LAB BLOOD ADD-ON Performing Organization Address City/[facility] Phon e Number [facility] [address] [place], [place] [address] [place], [place] [address]t. [place] [address] Laboratory Medicine and Pathology [address] [place] Vitamin A and Vitamin E (12/12/2020 12:37 PM CDT) athologist Signature Vitamin A 70.5 32.5 - 78.0 12/14/2020 1:31 [facility] mcg/dL PM CDT Comment: ----ADDITIONAL INFORMATION---- This test was developed and its performa nce characteristics determined by [facility] in a manner consistent with CLIA requirements. This test has not been cleared or approved by the [place]. [place] d and Drug Administration. A-Tocopherol, Vitamin E 6.6 5.5 - 17.0 mg/L 12/15/2020 7:53 AM CDT [facility] Specimen Anatomical Collection Method Collection Time Receive d Time (Source) Location / / Volume Laterality Blood (Blood, 12/12/2020 12:37 12/13/2020 4:45 Venous) PM CDT PM CDT Emil Zurita M.D. LAB BLOOD NON ADD-ON Performing Organization Address City/[facility] Code Phon e Number [facility] [address] [place], [place] [address] SUPPORT CENTER [facility] [place] [address] Laboratory Medicine and Pathology [address] [place] documented in this encounter Visit Diagnoses Diagnosis Pancreatitis Chronic (HCC) - Primary Pancreatitis Chronic (HCC) documented in this encounter Additional Health Concerns Assessment Noted Time PHQ-9 Depression Total Score: 18 04/28/2018 11:27 AM C DT documented as of this encounter Care Teams Plastic Fixture Builder Relationship Specialty Start Date End Date Shayla Alford D.O. PCP - General Internal Medicine 05/22/20 [address] [place] [address] documented as of this encounter
--- OUTSIDE RECORDS SUMMARY | 2022-05-28 07:13 | XMS_ITS | Encounter Summary ---
:1945 Author Organization [facility] Address [address] [place] [address] Care Team Providers Name Role Phone Shayla Alford D.OMauro Primary Care Provider [phone] Encounter Details Date Type Department Care Team Description 10/27/2020 Hospital Encounter Department of Alexys Diabete s Mellitus Type Laboratory Medicine Shayla queen, 2 Hyperg lycemia (HCC) in [facility] [address] [place] [phone] Social History Tobacco Use Types Packs/Day [...] do you attend mandaen or Never 2021 amish services? Do you [...] completed or the highest Martin, MEd, BATTERY HAND, CAY[place]) degree you have received? Sex [...] by mouth tabletIndications: daily. 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 documented in this encounter Results (ABNORMAL) Albumin, Random, Urine (10/27/2020 10:32 AM DIALYSIS TECH) [facility] gist Method Time Signature Microalbumin 124.0 mg/L 10/27/2020 [facility] 12:15 PM DIALYSIS TECH Creatinine 26 mg/dL 10/27/2020 [place] 11:30 AM DIALYSIS TECH Albumin/Creatinin 477 (H) <17 mg/g 10/27/2020 [facility] e Ratio 12:15 PM DIALYSIS TECH Specimen Anatomical Collection Method Collection Time Receive d Time (Source) Location / / Volume Laterality Urine (Urine, 10/27/2020 10:32 10/27/2020 Clean Catch) AM DIALYSIS TECH 10:43 AM DIALYSIS TECH Shayla Alford D.O. LAB URINE ORDERABLES Performing Organization Address City/State/ZIP Code Phon e Number [facility]- [address] [place] [address] [facility] [address] System in [place] [address] documented in this encounter Visit Diagnoses Diagnosis Diabetes Mellitus Type 2 Hyperglycemia ( HCC) documented in this encounter Additional Health Concerns Assessment Noted Time PHQ-9 Depression Total Score: 18 04/28/2018 11:27 AM Anna Marie BROUSSARD documented as of this encounter Care Teams Classroom Instructor Relationship Specialty Start Date End Date Shayla Alford D.O. PCP - General Internal Medicine 05/22/[address] [phone] documented as of this encounter
--- OUTSIDE RECORDS SUMMARY | 2022-05-28 07:13 | XMS_ITS | Encounter Summary ---
:1945 Author Organization [facility] Address [address] [place] [address] Care Team Providers Name Role Phone Shayla Alford D.O. Primary Care Provider [phone] Reason for Referral Outpatient (Routine) - Closed Specialty Diagnoses / Procedures Referred By Contact Refer red To Contact Community Internal Diagnoses Failure Heart (HCC) Hypertension Essential Primary Diabetes Mellitus Type 2 Hyperglycemia (HCC) Pancreatitis Chronic Recurrent (HCC) ARMAAN Alford [facility] Tulio Mcguire [address] [place] [phone] Referral ID Status Reason Start Date Expiration Date Visits Requ ested Visits Authorized [id number] Closed 10/20/2020 10/20/2021 1 1 IRER ENGINE PRODUCTION Outpatient (Routine) - Closed Specialty Diagnoses / Procedures Referred By Contact Refer red To Contact Pharmacy Diagnoses Diabetes Mellitus Type 2 Hyperglycemia (HCC) Shayla Alford [facility] Region D.O. [address] [place] [phone] Referral ID Status Reason Start Date Expiration Date Visits Requ ested Visits Authorized [id number] Closed 10/20/2020 10/20/2021 1 1 IRER ENGINE PRODUCTION Reason for Visit Outpatient (Routine) - Closed Specialty Diagnoses / Procedures Referred By Contact Refer red To Contact [facility] Internal ARMAAN Alford [facility] Tulio Mcguire [address] [place] [address] Referral ID Status Reason Start Date Expiration Date Visits Requ ested Visits Authorized [id number] Closed 10/12/2020 10/12/2021 1 1 Encounter Details Date Type Department Care Team Description 10/20/2020 Office Visit Department of Internal Rocío Di abetes Mellitus Type 2 Hyperglycemia (HCC) (Primary Dx); Medicine in [place], , Coleman Mcguire Failure Heart (HCC); [place] [address] Hypertension Essential Primary; [address] [place], [place] Pancreatitis Chronic Recurre nt (HCC); [place] [address] Hyperlipidemia; [phone] Malignant Neoplasm Of Bladde r [...] do you attend mosque or Never 2021 yazdanism services? Do you [...] have completed or the highest Martin, MEd, TOWER ERECTOR HELPER, CAYDEN) degree you have received? Sex Assigned at Date Recorded Male 05/21/2018 2:34 PM CDT documented as of this encounter Last Filed Vital Signs Vital Sign Reading Time Taken Comments Blood Pressure 146/70 10/20/2020 8:48 AM REPAIRER ENGINE PRODUCTION Pulse 52 10/20/2020 8:48 AM REPAIRER ENGINE PRODUCTION Temperature 36.2 ??C (97.1 ??F) 10/20/2020 8:48 AM REPAIRER ENGINE PRODUCTION Respiratory Rate 16 10/20/2020 8:48 AM REPAIRER ENGINE PRODUCTION Oxygen Saturation - - Inhaled Oxygen Concentration - - Weight 99.2 kg (218 lb 11.1 oz) 10/20/2020 8:48 AM REPAIRER ENGINE PRODUCTION Height 189 cm (6' 2.41) 10/20/2020 8:48 AM REPAIRER ENGINE PRODUCTION Body Mass Index 27.77 10/20/2020 8:48 AM REPAIRER ENGINE PRODUCTION documented in this encounter Progress Notes Shayla [...] I did offer a referral to a Design Specialist which he declines. I also offered a [...] Failure Heart (HCC). 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 The creation of this recordis based on the scribe remotely listening to the visit and the provider's statements to them. This do cument has been checked and approved by the attending provider. Electronically signed by: Shayla Alford D.O. 10/20/20 2:11 PM REPAIRER ENGINE PRODUCTION IRER ENGINE PRODUCTION documented in this encounter Plan of [...] Results (ABNORMAL) Hemoglobin A1c (10/27/2020 10:32 AM REPAIRER ENGINE PRODUCTION) P athologist Signature Hemoglobin A1c, 8.4 (H) 4.2 - 5.6 10/27/2020 [facility] B % 11:22 AM REPAIRER ENGINE PRODUCTION Comment: Hemoglobin A1c values greater than or eq ual to 6.5 percent are diagnostic for diabetes mellitus. ?? Diagnosis should be confirmed by repeat testing. ??In diabet ic patients, HbA1c goals should be discussed with healthcar e provider. Specimen Anatomical Collection Method Collection Time Receive d Time (Source) Location / / Volume Laterality Blood (Blood, 10/27/2020 10:32 10/27/2020 Venous) AM REPAIRER ENGINE PRODUCTION 10:43 AM REPAIRER ENGINE PRODUCTION Shayla Alford D.O. LAB BLOOD ADD-ON Performing Organization Address City/State/ZIP Code Phon e Number [facility]- [address] [place] [address] [facility] [place] [address] System in [place] [address] (ABNORMAL) Basic Metabolic Panel (10/27/2020 10:32 AM REPAIRER ENGINE PRODUCTION) Analysis Performed At Patho logist Time Signature Potassium, P 4.5 3.6 - 5.2 10/27/2020 [facility] mmol/L 11:28 AM REPAIRER ENGINE PRODUCTION Sodium, P 139 135 - 145 10/27/2020 [facility] mmol/L 11:28 AM REPAIRER ENGINE PRODUCTION Chloride, P 103 98 - 107 10/27/2020 [facility] mmol/L 11:28 AM REPAIRER ENGINE PRODUCTION Bicarbonate, P 26 22 - 29 10/27/2020 [facility] mmol/L 11:28 AM REPAIRER ENGINE PRODUCTION Anion Gap, P 10 7 - 15 10/27/2020 [facility] 11:28 AM REPAIRER ENGINE PRODUCTION BUN (Blood Urea 50 (H) 8 - 24 10/27/2020 [facility] Nitrogen), P mg/dL 11:28 AM REPAIRER ENGINE PRODUCTION Creatinine 1.91 (H) 0.74 - 10/27/2020 [facility] 1.35 mg/dL 11:28 AM REPAIRER ENGINE PRODUCTION eGFR-Black/Afri 38 (L) >=60 10/27/2020 [facility] can Italian mL/min/BSA 11:28 AM REPAIRER ENGINE PRODUCTION Comment: ----ADDITIONAL INFORMATION---- Estimated GFR calculated using the 2009 CKD_EPI creatinine equation. eGFR Non-Black/ 33 (L) >=60 mL/min/BSA 10/27/2020 11:28 AM REPAIRER ENGINE PRODUCTION [facility] Italian Comment: ----ADDITIONAL INFORMATION---- Estimated GFR calculated using the 2009 CKD_EPI creatinine equation. Calcium, Total, P 9.1 8.8 - 10.2 mg/dL 10/27/2020 11:2 8 AM REPAIRER ENGINE PRODUCTION [facility] Glucose, P 141 (H) 70 - 140 mg/dL 10/27/2020 11:28 AM REPAIRER ENGINE PRODUCTION [facility] Specimen Anatomical Collection Method Collection Time Receive d Time (Source) Location / / Volume Laterality Blood (Blood, 10/27/2020 10:32 10/27/2020 Venous) AM REPAIRER ENGINE PRODUCTION 10:43 AM REPAIRER ENGINE PRODUCTION Shayla Alford D.O. LAB BLOOD ADD-ON Performing Organization Address City/[facility]/ZIP Code Phon e Number [facility]- [address] [place] [address] [place] [address] System in [place] [address] (ABNORMAL) Albumin, Random, Urine (10/27/2020 10:32 AM REPAIRER ENGINE PRODUCTION) [facility] gist Method Time Signature Microalbumin 124.0 mg/L 10/27/2020 [facility] 12:15 PM REPAIRER ENGINE PRODUCTION Creatinine 26 mg/dL 10/27/2020 [facility] 11:30 AM REPAIRER ENGINE PRODUCTION Albumin/Creatinin 477 (H) <17 mg/g 10/27/2020 [facility] e Ratio 12:15 PM REPAIRER ENGINE PRODUCTION Specimen Anatomical Collection Method Collection Time Receive d Time (Source) Location / / Volume Laterality Urine (Urine, 10/27/2020 10:32 10/27/2020 Clean Catch) AM REPAIRER ENGINE PRODUCTION 10:43 AM REPAIRER ENGINE PRODUCTION Shayla Alford D.O. LAB URINE ORDERABLES Performing Organization Address City/[facility]/ZIP Code Phon e Number [facility]- [address] [place] [address] [facility] [place] [address] System in [place] [address] documented in this encounter Visit [...] as of this encounter Care Teams Medical Affairs Director Relationship Specialty Start Date End Date Shayla Alford D.O. PCP - General Internal Medicine 05/22/20 [address] [facility] [place] [address] documented as of this encounter
--- OUTSIDE RECORDS SUMMARY | 2022-05-28 07:13 | XMS_ITS | Encounter Summary ---
:1945 Author Organization [facility] Address [address] [place] [address] Care Team Providers Name Role Phone Shayla Alford D.O. Primary Care Provider [phone] Encounter Details Date Type Department Care Team Description 11/13/2020 Orders Only [facility] PCP [facility] Sa neno Espinal M.D. [address] [place], [place] [phone] (Wo rk) Social History [...] do you attend buddhism or Never 2021 pentecostalism services? Do you [...] have completed or the highest Martin, Sirena, PANEL COVERER, CAYDEN) degree you have received? Sex Assigned at Date Recorded Male 05/21/2018 2:34 PM CDT documented as of this encounter Plan of Treatment Not on filedocumented as of this encounter Visit Diagnoses Not on filedocumented in this encounter Additional Health Concerns Assessment Noted Time PHQ-9 Depression Total Score: 18 04/28/2018 11:27 AM C DT documented as of this encounter Care Teams Wool Classer Relationship Specialty Start Date End Date Shayla Alford D.O. PCP - General Internal Medicine 05/22/[address] [phone] documented as of this encounter
--- OUTSIDE RECORDS SUMMARY | 2022-05-28 07:13 | XMS_ITS | Encounter Summary ---
:1945 Author Organization [facility] Address [address] [place] [address] Care Team Providers Name Role Phone Shayla Alford D.O. Primary Care Provider [phone] Reason for Referral Outpatient (Routine) - Closed Specialty Diagnoses / Procedures Referred By Contact Refer red To Contact [facility] Internal ARMAAN Alford SE, D.O. [address] [phone] Referral ID Status Reason Start Date Expiration Date Visits Requ ested Visits Authorized [id number] Closed 12/12/2020 12/12/2021 1 1 Scheduling Instructions One hour due to heart failure , HTN, DM2 , HLP , COPD Reason for Visit Reason Comments Hypothyroidism Outpatient (Routine) - Closed Specialty Diagnoses / Procedures Referred By Contact Refer red To Contact [facility] ARMAAN Alford SE, D.O. [address] [place] [phone] Referral ID Status Reason Start Date Expiration Date Visits Requ ested Visits Authorized [id number] Closed 11/21/2020 11/21/2021 1 1 Encounter Details Date Type Department Care Team Description 12/12/2020 Office Visit Department of [facility] On ronic Systolic (Congestive) Heart Failure (HCC) (Primary Dx); Internal Medicine in Shayla D. O. Diabetes Mellitus Type 2 Hyperglycemia ( HCC); [place], [place] [address] Hypertension Essential Primary; [address] [place], [place] Hyperlipidemia; [place] [address] Stroke (HCC); [id number] Chronic Obstructive Pulmonar y Disease Without Exacerbation [...] do you attend mosque or Never 2021 mu-ism services? Do you [...] completed or the highest Martin, MEd, HOT ROLLER, CAYDEN) degree you have received? Sex [...] Body Mass Index 28.32 11/17/2020 2:22 PM SECOND WORKER documented in this encounter Progress Notes Shayla [...] been working with a committee at the [facility] to discuss the management of his diabetes. [...] succinate 50 mg by mouth daily, and [id number] mg by mouth daily. Continue to monitor [...] their behalf by Sarai Cason, a trained ophthalmic medical technologist. The creation of this recordis [...] Name Type Priority Associated Diagnoses Order S [facility] Internal Outpatient Referral Routine Ex [...] Code Phon e Number [facility]- [address] [place] [address] [place] [address] System in [place] [address] Pulmonary Function Tests (12/27/2020 2:48 PM CDT) Specimen (Source) Anatomical Location Collection Method / Collectio n Time Received Time / Laterality Volume Narrative This result has an attachment that is no t available. Shayla Alford D.O. PFT ORDERABLES Performing Organization Address City/[facility]/ZIP Code Phon e Number [facility] SUITE (ABNORMAL) Hemoglobin A1c (12/12/2020 12:37 [...] Code Phon e Number [facility]- [address] [place] [address] [facility] [place] [address] System in [place] [address] documented in this encounter Visit [...] documented as of this encounter Care Teams Weeder Thinner Relationship Specialty Start Date End Date Shayla Alford D.O. PCP - General Internal Medicine 05/22/[address] [phone] documented as of this encounter
--- OUTSIDE RECORDS SUMMARY | 2022-05-28 07:13 | XMS_ITS | Encounter Summary ---
:1945 Author Organization [facility] Address [address] [place] [address] Care Team Providers Name Role Phone Shayla Alford D.O. Primary Care Provider [phone] Reason for Visit Outpatient (Routine) - Closed Specialty Diagnoses / Procedures Referred By Contact Refer red To Contact Pharmacy Diagnoses Diabetes Mellitus Type 2 Hyperglycemia (HCC) Shayla Alford [facility] [place] DM[facility] [address], [place] [address] Referral ID Status Reason Start Date Expiration Date Visits Requ ested Visits Authorized [id number] Closed 10/20/2020 10/20/2021 1 1 Encounter Details Date Type Department Care Team Description 11/08/2020 Office Visit Department of Family Shayla Murillo D.O. [address], [place] [address] Diabetes Mellitus Type 2 Hyperglycemia ( HCC) (Primary Dx); Medicine in [place] Lu, Pharm.DMauro [address], [place] [address] Medication Management Issue [place], [place] [address] [place] [address] Social History Tobacco Use Types Packs/Day [...] do you attend congregational or Never 2021 shinto services? Do you [...] completed or the highest Martin, MEd, BARREL LATHE OPERATOR OUTSIDE, CAYDEN) degree you have received? Sex Assigned [...] expiration date and get new meter from OR if ) Follow-up in 2-3 weeks for glucose review Alysha Lopez Pharm.D. Clinical Pharmacist 11/08/2020 ALLATION AND REPAIR TECHNICIAN documented in this encounter Consult Notes Alysha Lu Pharm.D. - 11/08/2020 1:15 PM CST Medication Therapy Management SUBJECTIVE Jonnathan Costa is a 75 y.o. male, who is seen today by [facility] Pharmacist for targeted medicationreview of diabetes. He was referred by Shayla Alford D.O. for pharmacist management of diabetes as outlined in pfbg-oj-tpft/video encounter on 10/20/2020. Patient was at the [...] accomplished by review of all prescription medications, gsaq-zfi-vhrwrvw medications and vitamin and supplements from patient's [...] glucose readings and potential dose adjustments. Patient???s [id number] is due on December 2020. Plan: The [...] referring provider via an electronically routed chart. ALLATION AND REPAIR TECHNICIAN documented in this encounter Plan of Treatment Not on filedocumented as of this encounter Visit Diagnoses Diagnosis Diabetes Mellitus Type 2 Hyperglycemia ( HCC) - Primary Medication Management Issue documented in this encounter Additional Health Concerns Assessment Noted Time PHQ-9 Depression Total Score: 18 04/28/2018 11:27 AM C DT documented as of this encounter Care Teams Second Grade Teacher Relationship Specialty Start Date End Date Shayla Alford D.O. PCP - General Internal Medicine 05/22/[address] [phone] documented as of this encounter
--- OUTSIDE RECORDS SUMMARY | 2022-05-28 07:13 | XMS_ITS | Encounter Summary ---
:1945 Author Organization [facility] Address [address] [place] [address] Care Team Providers Name Role Phone Shayla Alford D.O. Primary Care Provider [phone] Encounter Details Date Type Department Care Team Description 11/23/2020 Orders Only Department of Internal Rocío Brooks pothyroidism (Primary Medicine in [place], , oCleman Mcguire Dx) [place] [address] [place] [phone] Social History Tobacco Use Types Packs/Day [...] do you attend sikhism or Never 2021 religion services? Do you [...] have completed or the highest Martin, MEd, DIAGNOSTIC TECH, CAYDEN) degree you have received? Sex [...] supplements. ??If the result does not [facility] clinical observations, repeat testing after patient [...] e Number [facility]- [address] [place] [phone] [place] [address] System in [place] [address] (ABNORMAL) T3 (Triiodothyronine), Free (02/20/2021 11:09 AM CDT) P athologist Signature T3 2.5 (L) 2.8 - 4.4 02/20/2021 [facility] (Triiodothyron pg/mL 9:56 PM CDT ine), Free, S Specimen Anatomical Collection Method Collection Time Receive d Time (Source) Location / / Volume Laterality Blood (Blood, 02/20/2021 11:09 02/20/2021 9:08 Venous) AM CDT PM CDT Shayla Alford D.O. LAB BLOOD ADD-ON Performing Organization Address City/State/ZIP Code Phon e Number [facility] [address] [place], [place] [address] [facility] [place] [address] Laboratory Medicine and Pathology [address] [place] documented in this encounter Visit Diagnoses Diagnosis Hypothyroidism - Primary documented in this encounter Additional Health Concerns Assessment Noted Time PHQ-9 Depression Total Score: 18 04/28/2018 11:27 AM C DT documented as of this encounter Care Teams Linotype Machinist Relationship Specialty Start Date End Date Shayla Alford D.O. PCP - General Internal Medicine 05/22/[address] [place] [address] documented as of this encounter
--- OUTSIDE RECORDS SUMMARY | 2022-05-28 07:13 | XMS_ITS | Encounter Summary ---
:1945 Author Organization [facility] Address [address] [place] [address] Care Team Providers Name Role Phone Shayla Alford D.O. Primary Care Provider Encounter Details Date Type Department Care Team Description 11/24/2020 Orders Only Department of Internal Rocío Brooks pothyroidism (Primary Medicine in [place], , Coleman Mcguire Dx) [place] [address] [place] [phone] Social History Tobacco Use Types Packs/Day [...] do you attend rastafarian or Never 2021 temple services? Do you [...] have completed or the highest Martin, MEd, BUNGY JUMP MASTER, CAYDEN) degree you have received? Sex Assigned [...] as of this encounter Care Teams Green Belt Relationship Specialty Start Date End Date Shayla Alford D.O. PCP - General Internal Medicine 05/22/[address] [phone] documented as of this encounter
--- OUTSIDE RECORDS SUMMARY | 2022-05-28 07:14 | XMS_ITS | Encounter Summary ---
:1945 Author Organization [facility] Address [address] [place] [address] Care Team Providers Name Role Phone Shayla Alford D.O. Primary Care Provider [phone] Encounter Details Date Type Department Care Team Description 09/06/2020 Clinical Communication Department of Internal Andrei Dejesus Medicine in [place], [place], D.O Mauro [place] [address] [place] [phone] Social History Tobacco Use Types Packs/Day Years [...] do you attend sabianist or Never 2021 anglican services? Do you [...] have completed or the highest Martin, MEd, COVERSTITCH MACHINE OPERATOR, CAYDEN) degree you have received? [...] please advise Name of Medication (if relevant): SWITCH OPERATOR documented in this encounter Plan of Treatment Not on filedocumented as of this encounter Visit Diagnoses Not on filedocumented in this encounter Additional Health Concerns Assessment Noted Time PHQ-9 Depression Total Score: 18 04/28/2018 11:27 AM C DT documented as of this encounter Care Teams Pastoral Ministries Professor Relationship Specialty Start Date End Date Shayla Alford D.O. PCP - General Internal Medicine 05/22/[address] [phone] documented as of this encounter
--- OUTSIDE RECORDS SUMMARY | 2022-05-28 07:14 | XMS_ITS | Encounter Summary ---
:1945 Author Organization [facility] Address [address] [place] [address] Care Team Providers Name Role Phone Shayla Alford D.O. Primary Care Provider [phone] Reason for Visit Reason Comments Care Coordination Follow Up Encounter Details Date Type Department Care Team Description 07/17/2020 Patient Outreach Department of Sruthi Decker [facility] Co ordination Internal Medicine in M, R.N. (Follow Up) [place], [place] [address] [place] [phone] Social History Tobacco Use Types Packs/Day [...] do you attend restorationism or Never 2021 buddhist services? Do you [...] or the highest Martin, MEd, SOFTWARE APPLICATIONS SPECIALIST, CAYDEN) degree you have received? Sex [...] provider prior to starting new medications, including qtho-kvi-kjuqxjj and herbal supplements. PROBLEM SOLVING -Recognize barriers [...] clinic business hours. After clinichours, call Expert brokerage purchase and sale clerk Line for concerning symptoms. Call . Appointment line: For Family Medicine appointments in [place] call [phone] or Internal Medicine appointments [phone]. To reschedule or cancel an appointment with your RN Middle School Librarian, call or leave a message through the switchboard at [phone]. Nurse Middle School Librarian: ALLEY Bond. You may call Friday-Friday from 7:30-4:00. Primary Care: Keep regular follow-up appointments with your Primary Care Provider. Call your Care Team during office hours or call the clinic (above numbers). You may also send a message to your Provider or Middle School Librarian/ Care Team through your Patient Online Services [...] apple juice ? cup cooked cereal ??? [employer] [employer] ? cup haresh freddy ? cup sherbet [...] was instructed to contact the director of career resources with any questions or concerns and statedunderstanding [...] documented as of this encounter Care Teams Accountant Cost Relationship Specialty Start Date End Date Shayla Alford D.O. PCP - General Internal Medicine 05/22/20 [address] [place] [phone] documented as of this encounter
--- OUTSIDE RECORDS SUMMARY | 2022-05-28 07:14 | XMS_ITS | Encounter Summary ---
:1945 Author Organization [facility] Address [address] [place] [address] Care Team Providers Name Role Phone Shayla Alford D.O. Primary Care Provider Reason for Visit Reason Comments Care Coordination Graduation Encounter Details Date Type Department Care Team Description 09/01/2020 Patient Outreach Department of Ronda Fernandez Internal Medicine A, R.N. (Graduation) in [place] [address] [address] [place], [place] [address] [phone] [place], [place] [phone] (Work) [phone] Social History Tobacco Use Types Packs/Day Years [...] do you attend orthodox or Never 2021 worship services? Do you [...] completed or the highest Martin, MEd, LOGISTICS ASSISTANT, CAYDEN) degree you have received? Sex [...] Patient now has a nurse (Zoya) form [facility] that is calling him to [...] yes The following references were used: none ALTERATIONS TAILOR documented in this encounter Plan of Treatment Not on filedocumented as of this encounter Visit Diagnoses Not on filedocumented in this encounter Additional Health Concerns Assessment Noted Time PHQ-9 Depression Total Score: 18 04/28/2018 11:27 AM C DT documented as of this encounter Care Teams Pilling Machine Operator Relationship Specialty Start Date End Date Shayla Alford D.O. PCP - General Internal Medicine 05/22/20 [address] [place] [phone] documented as of this encounter
--- OUTSIDE RECORDS SUMMARY | 2022-05-28 07:14 | XMS_ITS | Encounter Summary ---
:1945 Author Organization [facility] Address [address] [place] [address] Care Team Providers Name Role Phone Shayla Alford D.O. Primary Care Provider [phone] Reason for Visit Reason Comments Care Coordination Monthly Billing- 2019 Encounter Details Date Type Department Care Team Description 09/28/2020 Patient Outreach Department of [place] Sommer Melter Supervisor rdination Internal Medicine in nShayla D .OMauro (Monthly Billing- Aug. [place], [place] [address]) [address] [place] [phone] Social History Tobacco Use Types Packs/Day Years [...] do you attend sikh or Never 2021 adventism services? Do you [...] completed or the highest Martin, MEd, MANAGER MECHANICAL MAINTENANCE, CAYDEN) degree you have received? Sex [...] documented as of this encounter Care Teams Knockout Worker Relationship Specialty Start Date End Date Shayla Alford D.O. PCP - General Internal Medicine 05/22/20 [address] [place] [phone] documented as of this encounter
--- OUTSIDE RECORDS SUMMARY | 2022-05-28 07:14 | XMS_ITS | Encounter Summary ---
:1945 Author Organization [facility] Address [address] [place] [address] Care Team Providers Name Role Phone Shayla Alford D.O. Primary Care Provider [phone] Reason for Visit Reason Comments Care Coordination Follow Up Encounter Details Date Type Department Care Team Description 07/25/2020 [facility] A, R.N. (Follow Up) in [place], [facility] [address] [place], [place] [address] [address] [place], [place] [phone] [address] (Work) [phone] Social History Tobacco Use Types Packs/Day Years [...] do you attend denominational or Never 2021 hoahaoism services? Do you [...] have completed or the highest Martin, MEd, SOYBEAN GROWER, CAYDEN) degree you have received? Sex [...] is currently at his [facility] [place] in [place]. He says he is feeling really well [...] provider prior to starting new medications, including ustb-pxn-aqedlzq and herbal supplements. PROBLEM SOLVING -Recognize barriers [...] clinic business hours. After clinichours, call Expert boat buffer plastic Line for concerning symptoms. Call . Appointment line: For Family Medicine appointments in [place] call [phone] or Internal Medicine appointments [phone]. To reschedule or cancel an appointment with your RN Poultry Breeder, call or leave a message through the switchboard at [phone]. Nurse Poultry Breeder: ALLEY Bond. You may call Friday-Friday from 7:30-4:00. Primary Care: Keep regular follow-up appointments with your Primary Care Provider. Call your Care Team during office hours or call the clinic (above numbers). You may also send a message to your Provider or Poultry Breeder/ Care Team through your Patient Online Services [...] apple juice ? cup cooked cereal ??? Axis ? cup haresh freddy ? cup sherbet [...] The patient was instructed to contact the in home caregiver with any questions or concerns and [...] as of this encounter Care Teams Lumber Stacker Driver Relationship Specialty Start Date End Date Shayla Alford D.O. PCP - General Internal Medicine 05/22/20 [address] [place] [phone] documented as of this encounter
--- OUTSIDE RECORDS SUMMARY | 2022-05-28 07:14 | XMS_ITS | Encounter Summary ---
:1945 Author Organization [facility] Address [address] [place] [address] Care Team Providers Name Role Phone Shayla Alford D.O. Primary Care Provider [phone] Reason for Referral Physical Therapy (Routine) - Closed Specialty Diagnoses / Procedures Referred By Contact Refer red To Contact Diagnoses Unsteadiness Gait Disorder Non Orthopedic Yen Buchanan M.D., M.B.A. [address] [place] [address] Referral ID Status Reason Start Date Expiration Date Visits V isits Requested Authorized [id number] Closed Service not 09/13/2020 09/13/2021 1 1 available at any [facility] site FLOORPERSON Reason for Visit Reason Comments Palpitations states [...] Expiration Date Visits Requ ested Visits Authorized [id number] Closed 09/13/2020 09/13/2021 1 1 Encounter Details Date Type Department Care Team Description 09/13/2020 Office Visit Department of Internal Kalpesh Buchanan re Heart (HCC) (Primary Dx); Medicine in Yen Patel M.D., Uns teadiness Gait Disorder Non Orthopedic; [facility].B.AMauro Beat Premature Ventricular [address] [place] [phone] Social History Tobacco Use Types Packs/Day Years [...] do you attend alevism or Never 2021 scientologist services? Do you [...] have completed or the highest Martin, MEd, FURNACE PROCESS PLANT OPERATOR, CAYDEN) degree you have received? Sex Assigned at Date Recorded Male 05/21/2018 2:34 PM CDT documented as of this encounter Last Filed Vital Signs Vital Sign Reading Time Taken Comments Blood Pressure 136/66 09/13/2020 10:44 AM SLOT FLOORPERSON Pulse 51 09/13/2020 10:44 AM SLOT FLOORPERSON Temperature 36.8 ??C (98.2 ??F) 09/13/2020 10:44 AM SLOT FLOORPERSON Respiratory Rate 16 09/13/2020 10:44 AM SLOT FLOORPERSON Oxygen Saturation - - Inhaled Oxygen Concentration - - Weight 97.7 kg (215 lb 6.2 oz) 09/13/2020 10:44 AM SLOT FLOORPERSON Height 189 cm (6' 2.41) 09/13/2020 10:44 AM SLOT FLOORPERSON Body Mass Index 27.35 09/13/2020 10:44 AM SLOT FLOORPERSON documented in this encounter Progress Notes Yen Buchanan M.D., M.B.A. - 09/13/2020 11:00 AM CST INTERNAL MEDICINE Progress note DATE OF EXAM 09/13/2020 LOCATION OF EXAM [facility] CHIEF COMPLAINT/REASON FOR VISIT Chief [...] Master's degree (e.g., MA, MS, Martin, MEd, FURNACE PROCESS PLANT OPERATOR, CAYDEN) Occupational History Employer: [...] More than three times a week Attends scientologist service: Never Active member of club or [...] (HCC) 10/16/2009 Pulmonary symptomatology, diagnosis at the [facility] unclear, [...] face symmetrical, pupils reactive to light, negative Jessup-Hallpike, no nystagmus NECK: supple, no tracheal shift [...] his concerns. Orders: - External referral PT (non-[place]) - Vestibular balance evaluation; Future; Expected date: [...] spent on counselling. Yen Buchanan M.D., M.B.A. FLOORPERSON documented in this encounter Miscellaneous Notes Assessment [...] that he will follow with Dr Reid. FLOORPERSON documented in this encounter Plan of Treatment Not on filedocumented as of this encounter Results Magnesium (10/19/2020 9:00 AM SLOT FLOORPERSON) P athologist Signature Magnesium, P 1.8 1.7 - 2.3 10/19/2020 [place] mg/dL 10:08 AM SLOT FLOORPERSON Specimen Anatomical Collection Method Collection Time Receive d Time (Source) Location / / Volume Laterality Blood (Blood, 10/19/2020 9:00 AM 10/19/19 9:03 Venous) SLOT FLOORPERSON AM SLOT FLOORPERSON Yen Buchanan M.D., M.B.A. LAB BLOOD ADD-ON Performing Organization Address City/State/ZIP Code Phon e Number [facility]- [address] [place] [address] [facility] [place] [place] [address] System in [place] [address] documented in this encounter Visit Diagnoses Diagnosis Failure Heart (HCC) - Primary Unsteadiness Gait Disorder Non Orthopedi c Beat Premature Ventricular documented in this encounter Additional Health Concerns Assessment Noted Time PHQ-9 Depression Total Score: 18 04/28/2018 11:27 AM C DT documented as of this encounter Care Teams Operator Catalyst Concentration Relationship Specialty Start Date End Date Shayla Alford D.O. PCP - General Internal Medicine 05/[address] [place] [address] documented as of this encounter
--- OUTSIDE RECORDS SUMMARY | 2022-05-28 07:14 | XMS_ITS | Encounter Summary ---
:1945 Author Organization [facility] Address [address] [place] [address] Care Team Providers Name Role Phone Shayla Alford D.O. Primary Care Provider [phone] Encounter Details Date Type Department Care Team Description 08/21/2020 Admin Visit Department of Family Medicine, [address] [address] [facility] [phone] Social History Tobacco Use Types Packs/Day Years [...] do you attend christian or Never 2021 confucianist services? Do you [...] completed or the highest Martin, MEd, MAINTENANCE WORKER SWIMMING POOL, CAYDEN) degree you have received? Sex Assigned at Date Recorded Male 05/21/2018 2:34 PM CDT documented as of this encounter Plan of Treatment Not on filedocumented as of this encounter Visit Diagnoses Not on filedocumented in this encounter Additional Health Concerns Infection Onset Date Last Indicated Resolved Time COVID19 Pending 08/21/2020 08/21/2020 08/22/2020 6:39 AM WASTEWATER TREATMENT PLANT SUPERVISOR Assessment Noted Time PHQ-9 Depression Total Score: 18 04/28/2018 11:27 AM C DT documented as of this encounter Care Teams Business Services Coordinator Relationship Specialty Start Date End Date Shayla Alford D.O. PCP - General Internal Medicine 05/22/20 [address] [place] [address] documented as of this encounter
--- OUTSIDE RECORDS SUMMARY | 2022-05-28 07:14 | XMS_ITS | Encounter Summary ---
:1945 Author Organization [facility] Address [address] [place] [address] Care Team Providers Name Role Phone Shayla Alford D.O. Primary Care Provider [phone] Reason for Visit Reason Comments Care Coordination Monthly billing- Jun 2020 Encounter Details Date Type Department Care Team Description 07/29/2020 Patient Outreach Department of Westley Sommer General Intern rdination Internal Medicine in nShayla D .OMauro (Monthly billing- Jun [place], [place] [address] [place] [phone] Social History Tobacco Use Types Packs/Day [...] do you attend christian or Never 2021 caodaism services? Do you [...] have completed or the highest Martin, MEd, RAISE DRILL OPERATOR, CAYDEN) degree you have received? [...] COVID19 Pending 08/21/2020 08/21/2020 08/22/2020 6:39 AM PHERESIS NURSE Assessment Noted Time PHQ-9 Depression Total Score: 18 04/28/2018 11:27 AM C DT documented as of this encounter Care Teams Meal Attendant Relationship Specialty Start Date End Date Shayla Alford D.O. PCP - General Internal Medicine 05/22/[address], [place] [address] documented as of this encounter
--- OUTSIDE RECORDS SUMMARY | 2022-05-28 07:14 | XMS_ITS | Encounter Summary ---
:1945 Author Organization [facility] Address [address] [place] [address] Care Team Providers Name Role Phone Shayla Alford D.O. Primary Care Provider [phone] Reason for Visit Reason Comments Pancreas Medication Question Encounter Details Date Type Department Care Team Description 10/16/2020 Clinical Division of Parminder Pancreas; Communication Gastroenterology in [place], [place] M.D. Question [address] [facility] [address] [place] [address] [place] [address] Social History Tobacco Use Types Packs/Day Years [...] do you attend catholic or Never 2021 adventism services? Do you [...] completed or the highest Martin, MEd, PHONE MANAGER, CAYDEN) degree you have received? Sex [...] nursing clinical judgement and provider Dr. Zurita UM KETTLE COOK Telephone Encounter - Daphney Batista R.N. - 11/03/2020 8:55 AM VACUUM KETTLE COOK SUBJECTIVE CHIEF COMPLAINT / REASON FOR CALL [...] nursing clinical judgement and provider Dr. Zurita UM KETTLE COOK Telephone Encounter - Daphney Batista RShama. - 10/20/2020 10:44 AM VACUUM KETTLE COOK SUBJECTIVE CHIEF COMPLAINT / REASON FOR CALL [...] following references were used: nursing clinical judgement UM KETTLE COOK documented in this encounter Plan of Treatment Not on filedocumented as of this encounter Visit Diagnoses Not on filedocumented in this encounter Additional Health Concerns Assessment Noted Time PHQ-9 Depression Total Score: 18 04/28/2018 11:27 AM C DT documented as of this encounter Care Teams Planograph Operator Relationship Specialty Start Date End Date Shayla Alford D.O. PCP - General Internal Medicine 05/22/20 [address] [place] [phone] documented as of this encounter
--- OUTSIDE RECORDS SUMMARY | 2022-05-28 07:14 | XMS_ITS | Encounter Summary ---
:1945 Author Organization [facility] Address [address] [place] [address] Care Team Providers Name Role Phone Shayla Alford D.O. Primary Care Provider [phone] Encounter Details Date Type Department Care Team Description 10/19/2020 Hospital Encounter Department of [facility], [facility] Heart ([facility]) Laboratory Medicine laron Barlow M.D., M.B.A. [place] [address] [facility] [place] [address] Social History Tobacco Use [...] 10/09/2021 organizations such as lutheran groups, unions, fraAgrivida or athletic groups, or school groups? How [...] completed or the highest Martin, MEd, SUPERVISOR ROLLER PRINTING, CAYDEN) degree you have received? Sex Assigned [...] by mouth tabletIndications: daily. 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 documented in this encounter Results Magnesium (10/19/2020 9:00 AM PHARMACIST ASSISTANT) P athologist Signature Magnesium, P 1.8 1.7 - 2.3 10/19/2020 [place] mg/dL 10:08 AM PHARMACIST ASSISTANT Specimen Anatomical Collection Method Collection Time Receive d Time (Source) Location / / Volume Laterality Blood (Blood, 10/19/2020 9:00 AM 10/19/19 9:03 Venous) PHARMACIST ASSISTANT AM PHARMACIST ASSISTANT Yen Buchanan M.D., M.B.A. LAB BLOOD ADD-ON Performing Organization Address City/State/ZIP Code Phon e Number [facility] [address] [place] [address] [facility] [place] [address] System in [place] [address] documented in this encounter Visit Diagnoses Diagnosis Failure Heart (HCC) documented in this encounter Additional Health Concerns Assessment Noted Time PHQ-9 Depression Total Score: 18 04/28/2018 11:27 AM C DT documented as of this encounter Care Teams Rotary Drier Operator Relationship Specialty Start Date End Date Bakkali-Derksen, Salwa, D.O. PCP - General Internal Medicine 05/22/[address] [place] [phone] documented as of this encounter
--- OUTSIDE RECORDS SUMMARY | 2022-05-28 07:14 | XMS_ITS | Encounter Summary ---
:1945 Author Organization [facility] Address [address] [place] [address] Care Team Providers Name Role Phone Shayla Alford D.O. Primary Care Provider [phone] Encounter Details Date Type Department Care Team Description 07/10/2020 Clinical Communication Department of Internal Andrei Dejesus Medicine in [place], Salwa, D.O Mauro [place] [address] [place] [phone] Social History Tobacco Use Types Packs/Day Years [...] do you attend muslim or Never 2021 rastafari services? Do you [...] have completed or the highest Martin, MEd, COCOA MILLING MACHINE OPERATOR, CAYDEN) degree you have received? [...] D.O. PCP - General Internal Medicine 05/22/[address] [address] documented as of this encounter
--- OUTSIDE RECORDS SUMMARY | 2022-05-28 07:14 | XMS_ITS | Encounter Summary ---
:1945 Author Organization [facility] Address [address] [place] [address] Care Team Providers Name Role Phone Shayla Alford D.O. Primary Care Provider [phone] Reason for Visit Reason Comments COVID Inquiry Encounter Details Date Type Department Care Team Description 08/21/2020 Clinical Communication Division of General Prescheduli ng COVID Inquiry Internal Medicine in [place], [place] [address] [place] [address] Social History Tobacco Use Types Packs/Day Years [...] do you attend buddhism or Never 2021 anglican services? Do you [...] have completed or the highest Martin, MEd, SAUSAGE TIER, CAYDEN) degree you have received? Sex Assigned at Date Recorded Male 05/21/2018 2:34 PM CDT documented as of this encounter Miscellaneous Notes Telephone Encounter - Meera Lanier - 08/21/2020 10:39 AM CST COVID DOS/PASS Screening What is the patient requesting?: COVID-19 Testing Only (End screening - follow local process) Plan: Endpoint recommendation: Testing indicated, sent patient to [facility] located at [address] [place] [address]. The entrance is on the north side of the building. You must call [phone] for an appointment time.Testing hours are Daily [...] sending patient for testing in [place] or [facility], an email notification is required. GHT TRAFFIC CONSULTANT documented in this encounter Plan of Treatment Not on filedocumented as of this encounter Visit Diagnoses Not on filedocumented in this encounter Additional Health Concerns Assessment Noted Time PHQ-9 Depression Total Score: 18 04/28/2018 11:27 AM C DT documented as of this encounter Care Teams Quality Review Specialist Relationship Specialty Start Date End Date Shayla Alford D.O. PCP - General Internal Medicine [address]/22/[address] [address] documented as of this encounter
--- OUTSIDE RECORDS SUMMARY | 2022-05-28 07:14 | XMS_ITS | Encounter Summary ---
:1945 Author Organization [facility] Address [address] [place] [address] Care Team Providers Name Role Phone Shayla Alford.OMauro Primary Care Provider [phone] Encounter Details Date Type Department Care Team Description 09/06/2020 Orders Only Department of Internal Coleman Alford iabetes Mellitus Type 2 Medicine in Sh[place]la Dixon, D.O Mauro Without Complication [place] [address] (HCC) (Primary Dx) [address] [place] [phone] Social History Tobacco Use [...] do you attend yazidism or Never 2021 yazidism services? Do you [...] have completed or the highest Martin, MEd, LOW ALTITUDE AIR DEFENSE GUNNER, CAYDNE) degree you have received? Sex Assigned at Date Recorded Male 05/21/2018 2:34 PM CDT documented as of this encounter Plan of Treatment Not on filedocumented as of this encounter Results (ABNORMAL) Hemoglobin A1c (10/12/2020 9:15 AM SALES AGENT TRADING STAMPS) athologist Signature Hemoglobin A1c, 8.4 (H) 4.2 - 5.6 10/12/2020 [place] B % 9:44 AM SALES AGENT TRADING STAMPS Comment: Hemoglobin A1c values greater than or eq ual to 6.5 percent are diagnostic for diabetes mellitus. ?? Diagnosis should be confirmed by repeat testing. ??In diabet ic patients, HbA1c goals should be discussed with healthcar e provider. Specimen Anatomical Collection Method Collection Time Receive d Time (Source) Location / / Volume Laterality Blood (Blood, 10/12/2020 9:15 AM 10/12/19 9:27 Venous) SALES AGENT TRADING STAMPS AM SALES AGENT TRADING STAMPS Shayla Alford D.O. LAB BLOOD ADD-ON Performing Organization Address City/State/ZIP Code Phon e Number [facility]- [address] [place] [address] [place] [address] System in [place] [address] [facility] documented in this encounter Visit Diagnoses Diagnosis Diabetes Mellitus Type 2 Without Complic ation (HCC) - Primary documented in this encounter Additional Health Concerns Assessment Noted Time PHQ-9 Depression Total Score: 18 04/28/2018 11:27 AM C DT documented as of this encounter Care Teams Talent Engineer Relationship Specialty Start Date End Date Shayla Alford D.O. PCP - General Internal Medicine 05/22/[address] [place] [address] documented as of this encounter
--- OUTSIDE RECORDS SUMMARY | 2022-05-28 07:14 | XMS_ITS | Encounter Summary ---
:1945 Author Organization [facility] Address [address] [place] [address] Care Team Providers Name Role Phone Shayla Alford D.O. Primary Care Provider [phone] Reason for Visit Reason Comments Care Coordination Follow Up Encounter Details Date Type Department Care Team Description 08/17/2020 [facility] Medicine A, R.N. (Follow Up) in [place], [facility] [address] [place], [place] [address] [address] [place], [place] [phone] [address] (Work) [phone] Social History Tobacco Use Types Packs/Day Years [...] do you attend synagogue or Never 2021 religion services? Do you [...] have completed or the highest Martin, MEd, SKILLED NURSING FACILITIES PROFESSIONAL, CAYDEN) degree you have received? Sex [...] try to call him at that time. AND DRY SUGAR BIN OPERATOR Ronda Fernandez R.N. - 08/17/2020 12:44 PM [...] provider prior to starting new medications, including rwrp-qno-dmezwwg and herbal supplements. PROBLEM SOLVING -Recognize barriers [...] clinic business hours. After clinichours, call Expert nude model Line for concerning symptoms. Call . Appointment line: For Family Medicine appointments in [place] call [phone] or Internal Medicine appointments [phone]. To reschedule or cancel an appointment with your RN Supervisor Brake Repair, call or leave a message through the switchboard at [phone]. Nurse Supervisor Brake Repair: ALLEY Bond. You may call Friday-Friday from 7:30-4:00. Primary Care: Keep regular follow-up appointments with your Primary Care Provider. Call your Care Team during office hours or call the clinic (above numbers). You may also send a message to your Provider or Supervisor Brake Repair/ Care Team through your Patient Online Services [...] apple juice ? cup cooked cereal ??? [place] ? cup haresh freddy ? cup [...] The patient was instructed to contact the childcare director with any questions or concerns and statedunderstanding of the information provided. Disposition/Recommendation: recommended continue engagement in self-management activities Education: patient/caller able to teach back Caller agreeable to plan of care: yes The following references were used: none AND DRY SUGAR BIN OPERATOR documented in this encounter Plan of Treatment Not on filedocumented as of this encounter Visit Diagnoses Not on filedocumented in this encounter Additional Health Concerns Assessment Noted Time PHQ-9 Depression Total Score: 18 04/28/2018 11:27 AM C DT documented as of this encounter Care Teams Manufacturing Intern Relationship Specialty Start Date End Date Shayla Alford D.O. PCP - General Internal Medicine 05/22/20 [address] [place] [address] documented as of this encounter
--- OUTSIDE RECORDS SUMMARY | 2022-05-28 07:14 | XMS_ITS | Encounter Summary ---
:1945 Author Organization [facility] Address [address] [place] [address] Care Team Providers Name Role Phone Shayla Alford D.O. Primary Care Provider [phone] Reason for Visit Reason Comments Care Coordination Patient call in Encounter Details Date Type Department Care Team Description 08/28/2020 [facility] Outreach [facility] Internal Medicine A, R.N. (Patient call in ) in [place], [facility] [address] [place], [place] [address] [address] [place], [place] [phone] [address] (Work) [phone] Social History Tobacco Use Types Packs/Day Years [...] do you attend faith or Never 2021 buddhist services? Do you [...] have completed or the highest Martin, MEd, DISTILLERY MANAGER, CAYDEN) degree you have received? Sex [...] will have his present to assist him. SPECIALTY documented in this encounter Plan of Treatment Not on filedocumented as of this encounter Visit Diagnoses Not on filedocumented in this encounter Additional Health Concerns Assessment Noted Time PHQ-9 Depression Total Score: 18 04/28/2018 11:27 AM C DT documented as of this encounter Care Teams Pure Culture Operator Relationship Specialty Start Date End Date Shayla Alford D.O. PCP - General Internal Medicine 05/22/[address] [place] [address] documented as of this encounter
--- OUTSIDE RECORDS SUMMARY | 2022-05-28 07:14 | XMS_ITS | Encounter Summary ---
:1945 Author Organization [facility] Address [address] [place] [address] Care Team Providers Name Role Phone Sahyla Alford D.O. Primary Care Provider [phone] Reason for Referral Outpatient (Routine) - Closed Specialty Diagnoses / Procedures Referred By Contact Refer red To Contact Community Internal Diagnoses Failure Heart (HCC) Hypertension Essential Primary ARMAAN Alford [facility] Tulio Mcguire [address] [place] [phone] Referral ID Status Reason Start Date Expiration Date Visits Requ ested Visits Authorized [id number] Closed 10/12/2020 10/12/2021 1 1 Scheduling Instructions Vitals recheck BP and weight , please in form me if BP >150 systolic and if gained more than 5 pounds since visit HEALTH ASSISTANT Outpatient (Routine) - Closed Specialty Diagnoses / Procedures Referred By Contact Refer red To Contact [facility] Internal ARMAAN Alford [facility] Tulio Mcguire [address] [place] [phone] Referral ID Status Reason Start Date Expiration Date Visits Requ ested Visits Authorized [id number] Closed 10/12/2020 10/12/2021 1 1 Scheduling Instructions Schedule one hour HEALTH ASSISTANT Reason for Visit Reason Comments Diabetes Mellitus Appointment Request (Routine) - Closed Specialty Diagnoses / Procedures Referred By Contact Refer red To Contact Community Internal Medicine Referral ID Status Reason Start Date Expiration Date Visits Requ ested Visits Authorized [id number] Closed 09/06/2020 09/06/2021 1 1 Encounter Details Date Type Department Care Team Description 10/12/2020 Office Visit Department of Rocío Diabetes Me llitus Type 2 Hyperglycemia (HCC) (Primary Dx); Internal Medicine Shayla larry D. O. 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 Do you [...] completed or the highest Martin, MEd, NUCLEAR CHEMISTRY TECHNICIAN, [place]) degree you have received? Sex Assigned at Date Recorded Male 05/21/2018 2:34 PM CDT documented as of this encounter Last Filed Vital Signs Vital Sign Reading Time Taken Comments Blood Pressure 153/60 10/12/2020 11:59 AM HOME HEALTH ASSISTANT Pulse 50 10/12/2020 11:43 AM HOME HEALTH ASSISTANT Temperature 36.2 ??C (97.1 ??F) 10/12/2020 11:43 AM HOME HEALTH ASSISTANT Respiratory Rate - - Oxygen Saturation - - Inhaled Oxygen Concentration - - Weight 99.2 kg (218 lb 11.1 oz) 10/12/2020 11:43 AM HOME HEALTH ASSISTANT Height - - Body Mass Index 27.77 09/13/2020 10:44 AM HOME HEALTH ASSISTANT documented in this encounter Progress Notes [...] Failure Heart (HCC) #3 Atherosclerotic Heart Disease [place] Coronary Artery [...] by: Shayla Alford D.O. 10/20/20 1:01 PM HOME HEALTH ASSISTANT Time spent 45 minutes This document serves as a record of services personally performed by Shayla Alford D.O.. Itwas created on their behalf by Sarai Cason, a trained medical laboratory technicians. The creation of this recordis based on the scribe remotely listening to the visit and the provider's statements to them. This do cument has been checked and approved by the attending provider. HEALTH ASSISTANT documented in this encounter Plan of Treatment Scheduled Referrals Name Type Priority Associated Diagnoses Order S [facility] Internal Outpatient Referral Routine Ex pected: Medicine office 01/10/2021 visit (clinic) (Approximate) , Expires: 10/12/2023 [facility] Internal Outpatient Referral Routine Failure H eart (HCC) Expected: Medicine office Hypertension 10/19/2020 visit (clinic) Essential Primary (Approxi mate), Expires: 10/12/2023 documented as of this encounter Visit Diagnoses Diagnosis Diabetes Mellitus Type 2 Hyperglycemia ( HCC) - Primary Hyperlipidemia Pancreatitis Chronic Recurrent (HCC) Failure Heart (HCC) 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 PCP - General Internal Medicine 05/22/[address], [place] [address] documented as of this encounter
--- OUTSIDE RECORDS SUMMARY | 2022-05-28 07:14 | XMS_ITS | Encounter Summary ---
:1945 Author Organization [facility] Address [address] [place] [address] Care Team Providers Name Role Phone Shayla Alford D.O. Primary Care Provider [phone] Reason for Visit Reason Comments Care Coordination Monthly Billing- August 18 Encounter Details Date Type Department Care Team Description 08/28/2020 Patient Outreach Department of Westley [employer]mer [employer] Glass Blower rdination Internal Medicine in nShayla D .OMauro (Monthly Billing- [place], [place] [address] August 2020) [address] [place] [phone] Social History Tobacco Use Types Packs/Day Years [...] you attend jehovah's witness or Never 2021 congregation services? Do you [...] have completed or the highest Martin, MEd, LEACH TANK TENDER, [place]) degree you have received? Sex [...] documented as of this encounter Care Teams Appeals And Generalist Clerk Relationship Specialty Start Date End Date Shayla Alford D.O. PCP - General Internal Medicine 05/22/[address] [phone] documented as of this encounter
--- OUTSIDE RECORDS SUMMARY | 2022-05-28 07:14 | XMS_ITS | Encounter Summary ---
:1945 Author Organization [facility] Address [address] [place] [address] Care Team Providers Name Role Phone Shayla Alford D.O. Primary Care Provider [phone] Encounter Details Date Type Department Care Team Description 10/12/2020 Hospital Encounter Department of [place]ley Chroni c Systolic (Congestive) Heart Failure (HCC); Laboratory Medicine n, Gianna Mcguire Anemia In Chronic Kidney Disease; in [place], [address] Elevated Liver Enzyme Abnormal, Aspartate Transaminase, Serum Glutamic-Oxaloacetic Transaminase, Alanine Transaminase [facility] [address] [facility] [place] [phone] Social History Tobacco Use Types Packs/Day Years [...] do you attend taoism or Never 2021 jehovah's witness services? Do [...] completed or the highest Martin, MEd, SPECIAL EDUCATION PARA PROFESSIONAL, CAY[place]) degree you have received? Sex [...] Enz yme Results for this PANEL, S GEOPHYSICAL OPERATOR Abnormal, Aspartate procedur e are in Transaminase, Serum the resu lts Glutamic-Oxaloacetic section . Transaminase, Alanine Transaminase CBC WITH Routine 10/12/2020 9:15 AM Anemia In Chronic Resu lts for this DIFFERENTIAL, B GEOPHYSICAL OPERATOR Kidney Disease procedure are in the results section. BASIC METABOLIC Routine 10/12/2020 9:15 AM Chronic Systolic Re sults for this PANEL, S/P GEOPHYSICAL OPERATOR (Congestive) Heart procedure are in Failure (HCC) the results section. documented in this encounter Results (ABNORMAL) Hepatic Function Panel (10/12/2020 9:15 AM GEOPHYSICAL OPERATOR) [facility] Method Time Signature Bilirubin, Total, P 0.5 <=1.2 10/12/2020 [facility] mg/dL 10:13 AM GEOPHYSICAL OPERATOR Bilirubin, Direct, P <0.2 0.0 - 0.3 10/12/2020 [place] mg/dL 10:19 AM GEOPHYSICAL OPERATOR Aspartate 32 8 - 48 10/12/2020 [place] Aminotransferase U/L 10:13 AM GEOPHYSICAL OPERATOR (AST), P Alanine 46 7 - 55 10/12/2020 [place] Aminotransferase U/L 10:13 AM GEOPHYSICAL OPERATOR (ALT), P Alkaline 135 (H) 40 - 129 10/12/2020 [facility] Phosphatase, P U/L 10:13 AM GEOPHYSICAL OPERATOR Albumin, P 3.9 3.5 - 5.0 10/12/2020 [place] g/dL 10:13 AM GEOPHYSICAL OPERATOR Protein, Total, P 6.6 6.3 - 7.9 10/12/2020 [facility] g/dL 10:13 AM GEOPHYSICAL OPERATOR Specimen Anatomical Collection Method Collection Time Receive d Time (Source) Location / / Volume Laterality Blood (Blood, 10/12/2020 9:15 AM 10/12/19 9:27 Venous) GEOPHYSICAL OPERATOR AM GEOPHYSICAL OPERATOR Shayla Alford D.O. LAB BLOOD ADD-ON Performing Organization Address City/State/ZIP Code Phon e Number [facility]- [address] [place] [address] [facility] [place] [address] System in [place] [address] (ABNORMAL) CBC with Differential, Blood (10/12/2020 9:15 AM GEOPHYSICAL OPERATOR) [facility] Method Time Signature Hemoglobin 10.0 (L) 13.2 - 10/12/2020 [facility] 16.6 g/dL 9:31 AM GEOPHYSICAL OPERATOR Hematocrit 30.9 (L) 38.3 - 10/12/2020 [place] 48.6 % 9:31 AM GEOPHYSICAL OPERATOR Erythrocytes 3.29 (L) 4.35 - 10/12/2020 [place] 5.65 9:31 AM GEOPHYSICAL OPERATOR x10(12)/L MCV 93.9 78.2 - 10/12/2020 [place] 97.9 fL 9:31 AM GEOPHYSICAL OPERATOR RBC Distrib Width 12.6 11.8 - 10/12/2020 [place] 14.5 % 9:31 AM GEOPHYSICAL OPERATOR Platelet Count 176 135 - 317 10/12/2020 [facility] x10(9)/L 9:31 AM GEOPHYSICAL OPERATOR Leukocytes 6.1 3.4 - 9.6 10/12/2020 [facility] x10(9)/L 9:31 AM GEOPHYSICAL OPERATOR Neutrophils 4.36 1.56 - 10/12/2020 [place] 6.45 9:31 AM GEOPHYSICAL OPERATOR x10(9)/L Lymphocytes 0.93 (L) 0.95 - 10/12/2020 [place] 3.07 9:31 AM GEOPHYSICAL OPERATOR x10(9)/L Monocytes 0.42 0.26 - 10/12/2020 [place] 0.81 9:31 AM GEOPHYSICAL OPERATOR x10(9)/L Eosinophils 0.28 0.03 - 10/12/2020 [place] 0.48 9:31 AM GEOPHYSICAL OPERATOR x10(9)/L Basophils 0.06 0.01 - 10/12/2020 [place] 0.08 9:31 AM GEOPHYSICAL OPERATOR x10(9)/L Specimen Anatomical Collection Method Collection Time Receive d Time (Source) Location / / Volume Laterality Blood (Blood, 10/12/2020 9:15 AM 10/12/19 9:27 Venous) GEOPHYSICAL OPERATOR AM GEOPHYSICAL OPERATOR Shayla Alford D.O. LAB BLOOD ADD-ON Performing Organization Address City/State/ZIP Code Phon e Number [facility]- [address] [place] [address] [place] [address] System in [place] [address] (ABNORMAL) Basic Metabolic Panel (10/12/2020 9:15 AM GEOPHYSICAL OPERATOR) Analysis Performed At Patho logist Time Signature Potassium, P 4.4 3.6 - 5.2 10/12/2020 [place] mmol/L 10:13 AM GEOPHYSICAL OPERATOR Sodium, P 137 135 - 145 10/12/2020 [place] mmol/L 10:13 AM GEOPHYSICAL OPERATOR Chloride, P 103 98 - 107 10/12/2020 [place] mmol/L 10:13 AM GEOPHYSICAL OPERATOR Bicarbonate, P 26 22 - 29 10/12/2020 [facility] mmol/L 10:13 AM GEOPHYSICAL OPERATOR Anion Gap, P 8 7 - 15 10/12/2020 [place] 10:13 AM GEOPHYSICAL OPERATOR BUN (Blood Urea 41 (H) 8 - 24 10/12/2020 [facility] Nitrogen), P mg/dL 10:13 AM GEOPHYSICAL OPERATOR Creatinine 1.70 (H) 0.74 - 10/12/2020 [place] 1.35 mg/dL 10:13 AM GEOPHYSICAL OPERATOR eGFR-Black/Afri 44 (L) >=60 10/12/2020 [place] can [place] mL/min/BSA 10:13 AM GEOPHYSICAL OPERATOR Comment: ----ADDITIONAL INFORMATION---- Estimated GFR calculated using the 2009 CKD_EPI creatinine equation. eGFR Non-Black/ 38 (L) >=60 mL/min/BSA 10/12/2020 10:13 AM GEOPHYSICAL OPERATOR [facility] [place] Comment: ----ADDITIONAL INFORMATION---- Estimated GFR calculated using the 2009 CKD_EPI creatinine equation. Calcium, Total, P 8.8 8.8 - 10.2 mg/dL 10/12/2020 10:1 3 AM GEOPHYSICAL OPERATOR [facility] Glucose, P 305 (H) 70 - 140 mg/dL 10/12/2020 10:13 AM GEOPHYSICAL OPERATOR [facility] Specimen Anatomical Collection Method Collection Time Receive d Time (Source) Location / / Volume Laterality Blood (Blood, 10/12/2020 9:15 AM 10/12/19 9:27 Venous) GEOPHYSICAL OPERATOR AM GEOPHYSICAL OPERATOR Shayla Alford D.O. LAB BLOOD ADD-ON Performing Organization Address City/State/ZIP Code Phon e Number [facility]- [address] [place] [address] [place] [address] System in [place] [address] [facility] documented in this encounter Visit Diagnoses Diagnosis Chronic Systolic (Congestive) Heart Fail ure (HCC) Anemia In Chronic Kidney Disease Elevated Liver Enzyme Abnormal, Aspartat e Transaminase, Serum Glutamic-Oxaloacetic Transaminase, Alanine Transaminase documented in this encounter Additional Health Concerns Assessment Noted Time PHQ-9 Depression Total Score: 18 04/28/2018 11:27 AM C DT documented as of this encounter Care Teams Patent Leather Sorter Relationship Specialty Start Date End Date Shayla Alford D.O. PCP - General Internal Medicine 05/22/[address] [place] [phone] documented as of this encounter
--- OUTSIDE RECORDS SUMMARY | 2022-05-28 07:14 | XMS_ITS | Encounter Summary ---
:1945 Author Organization [facility] Address [address] [place] [address] Care Team Providers Name Role Phone Shayla Alford D.O. Primary Care Provider [phone] Reason for Visit Reason Comments Care Coordination Call in Encounter Details Date Type Department Care Team Description 07/10/2020 Patient Outreach Department of [facility] Internal Medicine A, R.N. (Call in) in [place], [facility] [address] [place], [place] [address] [address] [place], [place] [phone] [address] (Work) [phone] Social History Tobacco Use Types Packs/Day Years [...] have completed or the highest Martin, MEd, AFTER SCHOOL PROGRAM DIRECTOR, [place]) degree you have received? Sex [...] as of this encounter Care Teams Hydraulic Assembler Relationship Specialty Start Date End Date Shayla Alford D.O. PCP - General Internal Medicine 05/22/20 [address], [place] [address] documented as of this encounter
--- OUTSIDE RECORDS SUMMARY | 2022-05-28 07:14 | XMS_ITS | Encounter Summary ---
:1945 Author Organization [facility] Address [address] [place] [address] Care Team Providers Name Role Phone Shayla Alford D.O. Primary Care Provider [phone] Encounter Details Date Type Department Care Team Description 08/18/2020 Clinical Communication Department of Ronda Fernandez Internal Medicine in , [place], [place] [address] [facility] [place] [address] [place] [phone] Social History Tobacco Use Types Packs/Day Years [...] do you attend islam or Never 2021 buddhism services? Do you [...] have completed or the highest Martin, MEd, INVESTIGATION DIVISION CAPTAIN, [place]) degree you have received? Sex Assigned at Date Recorded Male 05/21/2018 2:34 PM CDT documented as of this encounter Miscellaneous Notes Telephone Encounter - Ronda Fernandez RMauroN. - 08/18/2020 8:33 AM MOBILE BATTERY TECHNICIAN Please schedule a nurse appointment with this patient as outlined below. Weight Count Operator (calendar name): MIGUEL ANGEL MCINTOSH CARE COORD NURSE Date: 09/01/20 Time: 9:30 a.m. Location: Patient's home/Virtual visit Appointment type: Virtual: Video Anyplace Extended- 60 minutes Medical Coding Technician needed: No Please enter into notes section: Please add my name Ronda Villagomez, as the person will be completing the virtual visit. LE BATTERY TECHNICIAN documented in this encounter Plan of Treatment Not on filedocumented as of this encounter Visit Diagnoses Not on filedocumented in this encounter Additional Health Concerns Assessment Noted Time PHQ-9 Depression Total Score: 18 04/28/2018 11:27 AM C DT documented as of this encounter Care Teams Resolution Agent Relationship Specialty Start Date End Date Shayla Alford D.O. PCP - General Internal Medicine 05/22/[address] [phone] documented as of this encounter
--- OUTSIDE RECORDS SUMMARY | 2022-05-28 07:14 | XMS_ITS | Encounter Summary ---
:1945 Author Organization [facility] Address [address] [place] [address] Care Team Providers Name Role Phone Shayla Alford D.O. Primary Care Provider [phone] Reason for Visit Reason Comments Care Coordination Follow Up Encounter Details Date Type Department Care Team Description 08/08/2020 [facility] Internal Medicine A, R.N. (Follow Up) in [place], [facility] [address] [place], [place] [address] [address] [place], [place] [phone] [address] (Work) [phone] Social History Tobacco Use Types Packs/Day Years [...] do you attend adventist or Never 2021 oriental orthodox services? Do [...] have completed or the highest Martin, MEd, STENOTYPIST, [place]) degree you have received? Sex Assigned [...] provider prior to starting new medications, including eori-xyl-qjpwebf and herbal supplements. PROBLEM SOLVING -Recognize barriers [...] clinic business hours. After clinichours, call Expert corsage maker Line for concerning symptoms. Call . Appointment line: For Family Medicine appointments in [place] call [phone] or Internal Medicine appointments [phone]. To reschedule or cancel an appointment with your RN Construction Engineer, call or leave a message through the switchboard at [phone]. Nurse Construction Engineer: ALLEY Bond. You may call Friday-Friday from 7:30-4:00. Primary Care: Keep regular follow-up appointments with your Primary Care Provider. Call your Care Team during office hours or call the clinic (above numbers). You may also send a message to your Provider or Construction Engineer/ Care Team through your Patient Online [...] juice ? cup cooked cereal ??? [place] ? cup haresh freddy ? cup sherbet [...] yes The following references were used: none PROJECT MANAGER documented in this encounter Plan of Treatment Not on filedocumented as of this encounter Visit Diagnoses Not on filedocumented in this encounter Additional Health Concerns Assessment Noted Time PHQ-9 Depression Total Score: 18 04/28/2018 11:27 AM C DT documented as of this encounter Care Teams Extrusion Die Corrector Relationship Specialty Start Date End Date Shayla Alford D.O. PCP - General Internal Medicine 05/22/[address] [phone] documented as of this encounter
--- OUTSIDE RECORDS SUMMARY | 2022-05-28 07:14 | XMS_ITS | Encounter Summary ---
:1945 Author Organization [facility] Address [address] [place] [address] Care Team Providers Name Role Phone Shayla Alford D.O. Primary Care Provider [phone] Reason for Visit Reason Comments DMV DM Report Encounter Details Date Type Department Care Team Description 2020 Clinical Communication Department of Internal Andrei RIVERA DM Report Medicine in [place], Shayla, D .OMauro [place] [address] [place] [phone] Social History Tobacco Use [...] do you attend caodaism or Never 2021 congregational services? Do you belong to any clubs or No 10/09/2021 organizations such as caodaism groups, unions, fraSnapShop or athletic groups, or school groups? How [...] have completed or the highest Martin, MEd, NATIONAL INVESTIGATIVE PRODUCER, CAYDEN) degree you have received? Sex Assigned at Date Recorded Male 05/21/2018 2:34 PM CDT documented as of this encounter Plan of Treatment Not on filedocumented as of this encounter Visit Diagnoses Not on filedocumented in this encounter Additional Health Concerns Assessment Noted Time PHQ-9 Depression Total Score: 18 04/28/2018 11:27 AM C DT documented as of this encounter Care Teams Community Administrator Relationship Specialty Start Date End Date Shayla Alford D.O. PCP - General Internal Medicine 05/22/[address] [phone] documented as of this encounter
--- OUTSIDE RECORDS SUMMARY | 2022-05-28 07:14 | XMS_ITS | Encounter Summary ---
:1945 Author Organization [facility] Address [address] [place] [address] Care Team Providers Name Role Phone Shayla Alford D.O. Primary Care Provider [phone] Encounter Details Date Type Department Care Team Description 10/12/2020 Hospital Encounter Department of Westley Diabet es Mellitus Laboratory Medicine n, Gianna Mcguire Type 2 Without in [place], [address] Complication (H CC) [address] [place] [phone] Social History Tobacco Use [...] do you attend voodoo or Never 2021 uatsdin services? Do you [...] have completed or the highest Martin, MEd, TOP LIFT TRIMMER, CAYDEN) degree you have received? Sex [...] by mouth tabletIndications: daily. Atherosclerotic Heart Disease [place] Coronary Artery With Other Forms Angina [...] 9:15 AM Diabetes Mellitus Results for this DIETARY MANAGER Type 2 Without procedure are in Complication (HCC) the resul ts section. documented in this encounter Results (ABNORMAL) Hemoglobin A1c (10/12/2020 9:15 AM DIETARY MANAGER) P athologist Signature Hemoglobin A1c, 8.4 (H) 4.2 - 5.6 10/12/2020 [facility] B % 9:44 AM DIETARY MANAGER Comment: Hemoglobin A1c values greater than or eq ual to 6.5 percent are diagnostic for diabetes mellitus. ?? Diagnosis should be confirmed by repeat testing. ??In diabet ic patients, HbA1c goals should be discussed with healthcar e provider. Specimen Anatomical Collection Method Collection Time Receive d Time (Source) Location / / Volume Laterality Blood (Blood, 10/12/2020 9:15 AM 10/12/19 9:27 Venous) DIETARY MANAGER AM DIETARY MANAGER Shayla Alford D.O. LAB BLOOD ADD-ON Performing Organization Address City/State/ZIP Code Phon e Number [facility]- [address] [place] [address] [place] [address] System in [place] [address] documented in this encounter Visit Diagnoses Diagnosis Diabetes Mellitus Type 2 Without Complic ation (HCC) documented in this encounter Additional Health Concerns Assessment Noted Time PHQ-9 Depression Total Score: 18 04/28/2018 11:27 AM C DT documented as of this encounter Care Teams Formula Bottler Relationship Specialty Start Date End Date Shayla Alford D.O. PCP - General Internal Medicine 05/22/[address] [phone] documented as of this encounter
--- OUTSIDE RECORDS SUMMARY | 2022-05-28 07:14 | XMS_ITS | Encounter Summary ---
:1945 Author Organization [facility] Address [address] [place] [address] Care Team Providers Name Role Phone Shayla Alford D.O. Primary Care Provider [phone] Reason for Visit Reason Onset Date Comments Outpatient COVID-19 Testing 08/21/2020 Encounter Details Date Type Department Care Team Description 08/21/2020 External Outreach Department of Chad Pettit Infect ion Upper Internal Medicine in J, D.O. Respiratory (Primary [place], [place] [address] Dx) [address] [place] [phone] Social History Tobacco Use [...] do you attend presybeterian or Never 2021 gnosticism services? Do you [...] have completed or the highest Martin, MEd, TUMBLING MACHINE OPERATOR, CAYDEN) degree you have received? Sex Assigned at Date Recorded Male 05/21/2018 2:34 PM CDT documented as of this encounter Progress Notes Deborah Valles, R.N. - 08/21/2020 10:54 AM CST Encounter created for the drive-through COVID-19 testing. DRIVER documented in this encounter Plan of Treatment Not on filedocumented as of this encounter Procedures Procedure Name Priority Date/Time Associated Diagnosis Comme nts SARS CORONAVIRUS-2 Routine 08/21/2020 3:00 PM Infection Upper Results for this RNA, V CAB DRIVER Respiratory procedure are i n the results section. documented in this encounter Results SARS Coronavirus-2 RNA, V Symptomatic (08/21/2020 3:00 PM CAB DRIVER) [facility] Method Time Signature SARS-CoV-2 Swab, 08/22/2020 [facility] Specimen Nasopharynx 6:38 AM CAB DRIVER Source SARS CoV-2 Undetected Undetected 08/22/2020 [facility] RNA, TMA 6:38 AM CAB DRIVER Comment: SARS-CoV-2 RNA absent. This result does not rule out COVID-19 in the patient, as the sensitivity of the test depends o n the timing of the specimen collection and the quality of the specim en. Result should be correlated with patient's history and clinical presentat ion. ----ADDITIONAL INFORMATION---- This test is performed using the Aptima SARS-CoV-2 assay ([employer] which has received Emergency Use Authori zation (EUA) by the U.S. Food and Drug Administration. Fact sheets for this Emergency Use Autho rization (EUA) assay can be found at the following links: For Healthcare Providers: https://www.[employer] a.gov/media/284206/download For Patients: https://www.fda.gov/media/ 694877/download Specimen Anatomical Collection Method Collection Time Receive d Time (Source) Location / / Volume Laterality Varies 08/21/2020 3:00 PM 0 9:34 (Nasopharynx) CAB DRIVER PM CAB DRIVER Chad Pettit D.O. LAB MICROBIOLOGY - GENERAL O GERMAN Performing Organization Address City/State/[facility] Phon e Number [facility]- [address] [place] [id number] [place] [address] [place] [address] [address] documented in this encounter Visit Diagnoses Diagnosis Infection Upper Respiratory - Primary documented in this encounter Additional Health Concerns Infection Onset Date Last Indicated Resolved Time COVID19 Pending 08/21/2020 08/21/2020 08/22/2020 6:39 AM CAB DRIVER Assessment Noted Time PHQ-9 Depression Total Score: 18 04/28/2018 11:27 AM C DT documented as of this encounter Care Teams International Marketing Coordinator Relationship Specialty Start Date End Date Shayla Alford D.O. PCP - General Internal Medicine 05/22/[address] [place] [phone] documented as of this encounter
--- OUTSIDE RECORDS SUMMARY | 2022-05-28 07:14 | XMS_ITS | Encounter Summary ---
:1945 Author Organization [facility] Address [address] [place] [address] Care Team Providers Name Role Phone Shayla Alford.Sabrina Primary Care Provider [phone] Reason for Visit Reason Comments COVID Inquiry Encounter Details Date Type Department Care Team Description 09/13/2020 Clinical Communication Department of Internal Andrei Dejesus COVID Inquiry Medicine in [facility] Shayla, D .OMauro [place] [address] [place] [phone] Social History Tobacco Use [...] do you attend yazidism or Never 2021 methodist services? Do you [...] completed or the highest Martin, MEd, MANAGER CUSTOMER, CAYDEN) degree you have received? Sex Assigned [...] sending patient for testing in [facility] or [facility], route encounter to the correct testing pool. E RECRUITER documented in this encounter Plan of Treatment Not on filedocumented as of this encounter Visit Diagnoses Not on filedocumented in this encounter Additional Health Concerns Assessment Noted Time PHQ-9 Depression Total Score: 18 04/28/2018 11:27 AM C DT documented as of this encounter Care Teams Apprentice Embalmer Relationship Specialty Start Date End Date Shayla Alford D.O. PCP - General Internal Medicine 05/22/[address] [phone] documented as of this encounter
--- OUTSIDE RECORDS SUMMARY | 2022-05-28 07:14 | XMS_ITS | Encounter Summary ---
:1945 Author Organization [facility] Address [address] [place] [address] Care Team Providers Name Role Phone Shayla Alford D.O. Primary Care Provider Reason for Visit Reason Comments Diabetes Mellitus Medication Visit [facility] Pre-op Exam Outpatient (Routine) - Modified Order Specialty Diagnoses / Procedures Referred By Contact Refer red To Contact Community Internal ARMAAN Alford 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 Chronic Systolic (Congestive) Heart Fail ure (HCC); [place] [address] Pancreatitis Chronic Recurrent (HCC); [address] [place], [place] Hypertension Essential Prima ry; [place] [address] Asthma Extrinsic Moderate (HCC); [phone] Hyperlipidemia; Elevated Liver Enzyme Abnormal, Aspartat e Transaminase, Serum Glutamic- Oxaloacetic Transaminase, Alanine Transaminase; [phone] Anemia In Chron ic Kidney Disease (Fax) [...] do you attend hoahaoism or Never 2021 jainism services? Do you [...] completed or the highest Martin, MEd, ADMINISTRATIVE TECHNICIAN, CAYDEN) degree you have received? Sex [...] is interested in establishing with a local ict business development manager. Referral has been placed. Has felt weakness [...] (ABNORMAL) Hepatic Function Panel (10/12/2020 9:15 AM BIAS MACHINE OPERATOR HELPER) [facility] Method Time Signature Bilirubin, Total, P 0.5 <=1.2 10/12/2020 [facility] mg/dL 10:13 AM BIAS MACHINE OPERATOR HELPER Bilirubin, Direct, P <0.2 0.0 - 0.3 10/12/2020 [place] mg/dL 10:19 AM BIAS MACHINE OPERATOR HELPER Aspartate 32 8 - 48 10/12/2020 [facility] Aminotransferase U/L 10:13 AM BIAS MACHINE OPERATOR HELPER (AST), P Alanine 46 7 - 55 10/12/2020 [place] Aminotransferase U/L 10:13 AM BIAS MACHINE OPERATOR HELPER (ALT), P Alkaline 135 (H) 40 - 129 10/12/2020 [facility] Phosphatase, P U/L 10:13 AM BIAS MACHINE OPERATOR HELPER Albumin, P 3.9 3.5 - 5.0 10/12/2020 [place] g/dL 10:13 AM BIAS MACHINE OPERATOR HELPER Protein, Total, P 6.6 6.3 - 7.9 10/12/2020 [facility] g/dL 10:13 AM BIAS MACHINE OPERATOR HELPER Specimen Anatomical Collection Method Collection Time Receive d Time (Source) Location / / Volume Laterality Blood (Blood, 10/12/2020 9:15 AM 10/12/19 9:27 Venous) BIAS MACHINE OPERATOR HELPER AM BIAS MACHINE OPERATOR HELPER Shayla Alford D.O. LAB BLOOD ADD-ON Performing Organization Address City/State/ZIP Code Phon e Number [facility]- [address] [place] [address] [facility] [place] [address] System in [place] [address] (ABNORMAL) CBC with Differential, Blood (10/12/2020 9:15 AM BIAS MACHINE OPERATOR HELPER) [facility] Method Time Signature Hemoglobin 10.0 (L) 13.2 - 10/12/2020 [facility] 16.6 g/dL 9:31 AM BIAS MACHINE OPERATOR HELPER Hematocrit 30.9 (L) 38.3 - 10/12/2020 [place] 48.6 % 9:31 AM BIAS MACHINE OPERATOR HELPER Erythrocytes 3.29 (L) 4.35 - 10/12/2020 [place] 5.65 9:31 AM BIAS MACHINE OPERATOR HELPER x10(12)/L MCV 93.9 78.2 - 10/12/2020 [place] 97.9 fL 9:31 AM BIAS MACHINE OPERATOR HELPER RBC Distrib Width 12.6 11.8 - 10/12/2020 [facility] 14.5 % 9:31 AM BIAS MACHINE OPERATOR HELPER Platelet Count 176 135 - 317 10/12/2020 [facility] x10(9)/L 9:31 AM BIAS MACHINE OPERATOR HELPER Leukocytes 6.1 3.4 - 9.6 10/12/2020 [facility] x10(9)/L 9:31 AM BIAS MACHINE OPERATOR HELPER Neutrophils 4.36 1.56 - 10/12/2020 [place] 6.45 9:31 AM BIAS MACHINE OPERATOR HELPER x10(9)/L Lymphocytes 0.93 (L) 0.95 - 10/12/2020 [place] 3.07 9:31 AM BIAS MACHINE OPERATOR HELPER x10(9)/L Monocytes 0.42 0.26 - 10/12/2020 [place] 0.81 9:31 AM BIAS MACHINE OPERATOR HELPER x10(9)/L Eosinophils 0.28 0.03 - 10/12/2020 [place] 0.48 9:31 AM BIAS MACHINE OPERATOR HELPER x10(9)/L Basophils 0.06 0.01 - 10/12/2020 [place] 0.08 9:31 AM BIAS MACHINE OPERATOR HELPER x10(9)/L Specimen Anatomical Collection Method Collection Time Receive d Time (Source) Location / / Volume Laterality Blood (Blood, 10/12/2020 9:15 AM 10/12/19 9:27 Venous) BIAS MACHINE OPERATOR HELPER AM BIAS MACHINE OPERATOR HELPER Shayla Alford D.O. LAB BLOOD ADD-ON Performing Organization Address City/State/ZIP Code Phon e Number [facility]- [address] [place] [address] [place] [address] System in [place] [address] (ABNORMAL) Basic Metabolic Panel (10/12/2020 9:15 AM BIAS MACHINE OPERATOR HELPER) Analysis Performed At Patho logist Time Signature Potassium, P 4.4 3.6 - 5.2 10/12/2020 [place] mmol/L 10:13 AM BIAS MACHINE OPERATOR HELPER Sodium, P 137 135 - 145 10/12/2020 [place] mmol/L 10:13 AM BIAS MACHINE OPERATOR HELPER Chloride, P 103 98 - 107 10/12/2020 [place] mmol/L 10:13 AM BIAS MACHINE OPERATOR HELPER Bicarbonate, P 26 22 - 29 10/12/2020 [facility] mmol/L 10:13 AM BIAS MACHINE OPERATOR HELPER Anion Gap, P 8 7 - 15 10/12/2020 [place] 10:13 AM BIAS MACHINE OPERATOR HELPER BUN (Blood Urea 41 (H) 8 - 24 10/12/2020 [place] Nitrogen), P mg/dL 10:13 AM BIAS MACHINE OPERATOR HELPER Creatinine 1.70 (H) 0.74 - 10/12/2020 [place] 1.35 mg/dL 10:13 AM BIAS MACHINE OPERATOR HELPER eGFR-Black/Afri 44 (L) >=60 10/12/2020 [facility] can Eritrean mL/min/BSA 10:13 AM BIAS MACHINE OPERATOR HELPER Comment: ----ADDITIONAL INFORMATION---- Estimated GFR calculated using the 2009 CKD_EPI creatinine equation. eGFR Non-Black/ 38 (L) >=60 mL/min/BSA 10/12/2020 10:13 AM BIAS MACHINE OPERATOR HELPER [facility] Erit[place]an Comment: ----ADDITIONAL INFORMATION---- Estimated GFR calculated using the 2009 CKD_EPI creatinine equation. Calcium, Total, P 8.8 8.8 - 10.2 mg/dL 10/12/2020 10:1 3 AM BIAS MACHINE OPERATOR HELPER [facility] Glucose, P 305 (H) 70 - 140 mg/dL 10/12/2020 10:13 AM BIAS MACHINE OPERATOR HELPER [facility] Specimen Anatomical Collection Method Collection Time Receive d Time (Source) Location / / Volume Laterality Blood (Blood, 10/12/2020 9:15 AM 10/12/19 9:27 Venous) BIAS MACHINE OPERATOR HELPER AM BIAS MACHINE OPERATOR HELPER Shayla Alford D.O. LAB BLOOD ADD-ON Performing Organization Address City/State/ZIP Code Phon e Number [facility]- [address] [place] [address] [facility] [address] System in [place] [address] documented in this encounter Visit [...] documented as of this encounter Care Teams User Experience Team Lead Relationship Specialty Start Date End Date Shayla Alford D.O. PCP - General Internal Medicine 05/22/[address] [address] documented as of this encounter
--- OUTSIDE RECORDS SUMMARY | 2022-05-28 07:15 | XMS_ITS | Encounter Summary ---
:1945 Author Organization [facility] Address [address] [place] [address] Care Team Providers Name Role Phone Shayla Alford D.O. Primary Care Provider [phone] Reason for Visit Outpatient (Routine) - Closed Specialty Diagnoses / Procedures Referred By Contact Refer red To Contact Pulmonary Medicine Diagnoses Asthma Extrinsic Moderate (HCC) Chronic Systolic (Congestive) Heart Failure (HCC) Effusion Pleural Dyspnea Multifactorial [facility] Shayla, D.OMauro [address] [place] [address] Referral ID Status Reason Start Date Expiration Date Visits V isits Requested Authorized [id number] Closed Specialty 05/16/2020 05/16/2021 1 1 Services Required Encounter Details Date Type Department Care Team Description 06/14/2020 Office Visit Division of Ailyn Sims Asthma Ex trinsic Moderate (HCC); Pulmonary Medicine Pato Duque Chronic Systolic (Congestive) Heart Fail ure (HCC); in [place], [facility] [address] Effusion Pleural; [place], [place] Dyspnea Multifactorial [address] [address] [place], [place] [phone] (Wo rk) [address] [phone] Social History Tobacco Use Types Packs/Day Years [...] do you attend christian or Never 2021 confucianism services? Do you [...] have completed or the highest Martin, MEd, HABILITATION WORKER, CAYDEN) degree you have received? Sex [...] as of this encounter Care Teams Grinder Dresser Relationship Specialty Start Date End Date Shayla Alford D.O. PCP - General Internal Medicine 05/22/20 [address] [place] [phone] documented as of this encounter
--- OUTSIDE RECORDS SUMMARY | 2022-05-28 07:15 | XMS_ITS | Encounter Summary ---
:1945 Author Organization [facility] Address [address] [place] [address] Care Team Providers Name Role Phone Shayla Alford D.O. Primary Care Provider Reason for Visit Reason Comments Care Coordination Follow up Encounter Details Date Type Department Care Team Description 07/03/2020 [facility] Internal Medicine A, R.N. (Follow up) in [place], [facility] [address] [place], [place] [address] [address] [place], [place] [phone] [address] (Work) [phone] Social History Tobacco Use Types Packs/Day Years [...] do you attend faith or Never 2021 confucianism services? Do you [...] have completed or the highest Martin, MEd, GREY GOODS MARKER, CAYDEN) degree you have received? Sex [...] never been contacted by that program from [facility] is supposed to be a heart [...] lot of exercise. 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 PROBLEM SOLVING -Recognize barriers [...] clinic business hours. After clinichours, call Expert hooker on Line for concerning symptoms. Call . Appointment line: For Family Medicine appointments in [place] call [phone] or Internal Medicine appointments [phone]. To reschedule or cancel an appointment with your RN Oceanographic Meteorologist, call or leave a message through the switchboard at [phone]. Nurse Oceanographic Meteorologist: ALLEY Bond. You may call Friday-Friday from 7:30-4:00. Primary Care: Keep regular follow-up appointments with your Primary Care Provider. Call your Care Team during office hours or call the clinic (above numbers). You may also send a message to your Provider or Oceanographic Meteorologist/ Care Team through your Patient Online Services [...] apple juice ? cup cooked cereal ??? Venus ? cup haresh freddy ? cup sherbet [...] The patient was instructed to contact the nonfarm animal caretaker with any questions or concerns and statedunderstanding [...] as of this encounter Care Teams Lab Technologist Relationship Specialty Start Date End Date Shayla Alford D.O. PCP - General Internal Medicine 05/22/20 [address], [place] [phone] documented as of this encounter
--- OUTSIDE RECORDS SUMMARY | 2022-05-28 07:15 | XMS_ITS | Encounter Summary ---
:1945 Author Organization [facility] Address [address] [place] [address] Care Team Providers Name Role Phone Shayla Alford D.O. Primary Care Provider [phone] Encounter Details Date Type Department Care Team Description 05/30/2020 Orders Only Department of [facility], [facility] Heart (HCC) Medicine, Cadence Ojeda M.D. (Primary Dx) Clinic, in [place], [facility] [address] [place], [place] [address] [facility] [address] [place], [place] [phone] [address] (Work) [phone] Social History Tobacco Use Types Packs/Day Years [...] have completed or the highest Martin, MEd, EGG CASER, CAYDEN) degree you have received? Sex Assigned [...] eGFR-Black/Afri 37 (L) >=60 06/02/2020 [facility] can Dominican mL/min/BSA 1:23 PM CDT Comment: ----ADDITIONAL INFORMATION---- Estimated GFR calculated using the 2009 CKD_EPI creatinine equation. eGFR Non-Black/ 32 (L) >=60 mL/min/BSA 06/02/2020 1:23 PM CDT [facility] Dominican Comment: ----ADDITIONAL INFORMATION---- [...] Code Phon e Number [facility]- [address] [place] [address] [place] [address] System in [place] [address] documented in this encounter Visit Diagnoses Diagnosis Failure Heart (HCC) - Primary documented in this encounter Additional Health Concerns Assessment Noted Time PHQ-9 Depression Total Score: 18 04/28/2018 11:27 AM C DT documented as of this encounter Care Teams Carpet Finishing Supervisor Relationship Specialty Start Date End Date Shayla Alford D.O. PCP - General Internal Medicine 05/22/[address] [place] [address] documented as of this encounter
--- OUTSIDE RECORDS SUMMARY | 2022-05-28 07:15 | XMS_ITS | Encounter Summary ---
:1945 Author Organization [facility] Address [address] [place] [address] Care Team Providers Name Role Phone Shayla Alford D.O. Primary Care Provider Encounter Details Date Type Department Care Team Description 06/14/2020 Diagnostic Division of Pulmonary [place] As thma Extrinsic Moderate (HCC); Medicine in [place], Gianna Mcguire Effusion Pleural; [place] [address] Dyspnea Multifactorial [address] [place], [place] [address] [phone] Social History Tobacco Use Types Packs/Day Years [...] do you attend scientologist or Never 2021 evangelical services? Do you [...] completed or the highest Martin, MEd, ACADEMIC PROGRAM SPECIALIST, CAYDEN) degree you have received? Sex [...] Signature VC MAX PRE 4.67 L 06/15/2020 [facility] 9:12 AM CDT SUITE FVC 4.67 L 06/15/2020 [facility] 9:12 AM CDT SUITE FEV1 3.31 L 06/15/2020 [facility] 9:12 AM CDT SUITE FEV1/FVC 70.90 % 06/15/2020 [facility] 9:12 AM CDT SUITE AVB70-43% 2.26 L/s 06/15/2020 [facility] 9:12 AM CDT SUITE PEF PRE 7.72 L/s 06/15/2020 [facility] 9:12 AM CDT SUITE FET PRE 7.95 sec 06/15/2020 [facility] 9:12 AM CDT SUITE DLCO 14.95 ml/(min*mm 06/15/2020 [facility] Hg) 9:12 AM CDT SUITE DLCOc 17.52 ml/(min*mm 06/15/2020 [facility] Hg) 9:12 AM CDT SUITE HB 10.30 g(Hb)/dL 06/15/2020 [facility] 9:12 AM CDT SUITE VA 7.30 L 06/15/2020 [facility] 9:12 AM CDT SUITE S0GsmIroe 98.00 % 06/15/2020 [facility] 9:12 AM CDT SUITE PulseRest 42.00 1/min 06/15/2020 [facility] 9:12 AM CDT SUITE C2GsbLcvc 97.00 % 06/15/2020 [facility] 9:12 AM CDT SUITE PulseExer 61.00 1/min 06/15/2020 [facility] 9:12 AM CDT SUITE EXER TIME 1.30 min 06/15/2020 [facility] 9:12 AM CDT SUITE STEP HEIGHT 9.00 Inch 06/15/2020 [facility] PRE 9:12 AM CDT SUITE % PRED VC MAX 103.74 % 06/15/2020 [facility] 9:12 AM CDT SUITE FVC% 103.74 % 06/15/2020 [facility] 9:12 AM CDT SUITE FEV1% 99.73 % 06/15/2020 [facility] 9:12 AM CDT SUITE % PRED 95.24 % 06/15/2020 [facility] FEV1/FVC 9:12 AM CDT SUITE % PRED FEF 97.12 % 06/15/2020 [facility] 25-75% 9:12 AM CDT SUITE % PRED PEF 86.66 % 06/15/2020 [facility] 9:12 AM CDT SUITE PRED VC MAX 4.50 L 06/15/2020 [facility] 9:12 AM CDT SUITE PRED FVC 4.50 L 06/15/2020 [facility] 9:12 AM CDT SUITE PRED FEV 1 3.32 L 06/15/2020 [facility] 9:12 AM CDT SUITE PRED FEV1/FVC 74.44 % 06/15/2020 [facility] 9:12 AM CDT SUITE PRED FEF 2.33 L/s 06/15/2020 [facility] 25-75% 9:12 AM CDT SU[address] PRED PEF 8.91 L/s 06/15/2020 [facility] 9:12 AM CDT SUITE Specimen (Source) Anatomical Collection Method Collection Time Re ceived Time Location / / Volume Laterality 06/14/2020 1:25 PM CDT Narrative This result has an attachment that is no t available. Shayla Alford D.O. PFT ORDERABLES Performing Organization Address City/State/ZIP Code Phon e Number [facility] SUITE [facility] [address] documented in this encounter Visit Diagnoses Diagnosis Asthma Extrinsic Moderate (HCC) Effusion Pleural Dyspnea Multifactorial documented in this encounter Additional Health Concerns Assessment Noted Time PHQ-9 Depression Total Score: 18 04/28/2018 11:27 AM C DT documented as of this encounter Care Teams Senior Housekeeper Relationship Specialty Start Date End Date Shayla Alford D.O. PCP - General Internal Medicine 05/22/[address] [phone] documented as of this encounter
--- OUTSIDE RECORDS SUMMARY | 2022-05-28 07:15 | XMS_ITS | Encounter Summary ---
:1945 Author Organization [facility] Address [address] [place] [address] Care Team Providers Name Role Phone Shayla Alford D.O. Primary Care Provider [phone] Reason for Referral Outpatient (Routine) - Closed Specialty Diagnoses / Procedures Referred By Contact Refer red To Contact Diagnoses Chronic Systolic (Congestive) Heart Failure (HCC) Manuel Evans M.D. [facility] Procedures Echo Transthoracic (TTE) [address] [place] [address] Referral ID Status Reason Start Date Expiration Date Visits Requ ested Visits Authorized [id number] Closed 06/06/2020 06/06/2021 1 1 Outpatient (Routine) - Closed Specialty Diagnoses / Procedures Referred By Contact Refer red To Contact Diagnoses Chronic Systolic (Congestive) Heart Failure (HCC) Manuel Evans M.D. [facility] Procedures ECG 12 Lead [address] [place] [address] Referral ID Status Reason Start Date Expiration Date Visits Requ ested Visits Authorized [id number] Closed 06/06/2020 06/06/2021 1 1 Outpatient (Routine) - Closed Specialty Diagnoses / Procedures Referred By Contact Refer red To Contact Cardiovascular Disease Diagnoses Chronic Systolic (Congestive) Heart Failure (HCC) Manuel Evans [place] M.D. [address] [place] [address] Referral ID Status Reason Start Date Expiration Date Visits Requ ested Visits Authorized [id number] Closed 06/06/2020 06/06/2021 1 1 Reason for Visit Outpatient (Routine) - Closed Specialty Diagnoses / Referred By Contact Referred To Contact Procedures Cardiovascular Diseases / Diagnoses Chronic Systolic (Congestive) Heart Failure (HCC) Rocío 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 Hyperlipidemia; [place], [place] [address] Beat Premature Ventricular; [address] [place], [place] [phone] [phone] Social History Tobacco Use Types Packs/Day Years [...] completed or the highest Martin, MEd, PATIENT SUPPORT SPECIALIST, CAYDEN) degree you have received? [...] CLINIC CONSULT REFERRAL Shayla Alford D.O. [address] [place] [phone] CHIEF COMPLAINT Congestive heart failure Supervised by: [...] The patient was seen by Cardiology within [facility] in November 2019 and had a positivestress [...] of breath after dismissal, he presented to [facility] ER on 05/03 and was admitted to [...] visit with his primary care provider in [place] on 05/16, he was found to have [...] by mouth daily., Disp: , Rfl: ??? elwksw-ffmxbmtn-isxmvpo (CREON) 6,000-19,000-30,[address] capsule, 2 capsules 3 (three) times a day with meals. As directed , Disp: , Rfl: ??? raqvqk-tkogpapq-qehbamz (CREON) 6,000-19,000-30,[address] capsule, Take [...] as needed. , Disp: , Rfl: ??? yovosd-sacwmkul-lpcqhvx (jixrvi-jzwrkgkv-vrpxeoz) 6,000-19,000-30,[address] capsule, Take 1 [...] INSERTION INTRAOCULAR LENS Left 04/2008 At the [place] ??? LASER OF PROSTATE W/ GREEN LIGHT PVP 08/28/2016 Greenlight photoselective vaporization of the prostate and cystoscopy with bladder biopsy and fulguration of a 2cm area; 08/28/[address] Prasanna Bernal at the [facility]. ??? TONSILLECTOMY ??? VASECTOMY SOCIAL HISTORY [...] Results ECG 12 Lead (11/17/2020 12:56 PM SERVICE TECHNICIAN COPIER) P athologist Signature Ventricular Rate 53 BPM MUSE ECG/Min OK Interval 222 ms MUSE QRSD Interval 112 ms MUSE QT Interval 496 ms MUSE QTC Interval 466 ms MUSE P [place] -2 degrees MUSE R [place] -46 degrees MUSE T Wave [place] -21 degrees MUSE Specimen Anatomical Collection Method Collection Time Receive d Time (Source) Location / / Volume Laterality 11/17/2020 12:56 11/17/2020 1:09 PM SERVICE TECHNICIAN COPIER PM SERVICE TECHNICIAN COPIER Impressions MUSE - 11/17/2020 1:09 PM SERVICE TECHNICIAN COPIER Sinus bradycardia with 1st degree A-V block Low anterior forces Left axis deviation Non-specific intra-ventricular conductio n delay Nonspecific T wave abnormality When compared with ECG of 06-MAY-2020 13 :05, OK interval has increased Reviewed by SEAN Boo [...] compared with ECG of 06-MAY-2020 13 :05, OK interval has increased Reviewed by SEAN Boo Manuel Evans M.D. ECG ORDERABLES Performing Organization Address City/State/ZIP Code Phon e Number GUILLERMO JHAVERI (TTE) 2D ECHO DOPPLER COLOR (11/17/2020 11:23 AM SERVICE TECHNICIAN COPIER) [facility] Method Time Signature Ejection Fraction 50 [...] / / Volume Laterality 11/17/2020 9:48 AM SERVICE TECHNICIAN COPIER Impressions 11/17/2020 2:48 PM SERVICE TECHNICIAN COPIER Intravenous Lumason ultrasound enhancement agent(s) administered to [...] effusion. For the complete report, see the iPipeline Documents. Narrative 11/17/2020 2:48 PM SERVICE TECHNICIAN COPIER For the complete report, see the iPipeline Documents. Final Impressions 1. Mild-moderately enlarged left [...] and Lateral 2 Views (11/17/2020 9:31 AM SERVICE TECHNICIAN COPIER) Anatomical Region Laterality Modality Chest, Thoracic RST LOS, Thoracic ARZ LOS, Thoracic N/A Digital Radiography FLA LOS Specimen (Source) Anatomical Collection Method Collection Time Re ceived Time Location / / Volume Laterality 11/17/2020 9:50 AM SERVICE TECHNICIAN COPIER Impressions 11/17/2020 9:51 AM SERVICE TECHNICIAN COPIER In the interval from the prior study of 05/18/2020, a small right pleural effusion has decreased in size. Trace left pleural effusion has likely resolved. No definite additional changes . Calcified aorta. Borderline size of cardiac silhouette with slight pulmonary venous hypertension. Mitral annular calcification. Degenerative changes thor acic spine. Narrative 11/17/2020 9:51 AM SERVICE TECHNICIAN COPIER EXAM: ??DX CHEST AP OR PA AND [...] B-Type Natriuretic Peptide (BNP) (11/17/2020 9:03 AM SERVICE TECHNICIAN COPIER) P athologist Signature NT-Pro BNP 2558 (H) <=119 pg/mL 11/17/2020 DTL 10:08 AM SERVICE TECHNICIAN COPIER Comment: NT-proBNP values less than 300 pg/mL [...] (Blood, 11/17/2020 9:03 AM 11/17/19 9:26 Venous) SERVICE TECHNICIAN COPIER AM SERVICE TECHNICIAN COPIER Manuel Evans M.D. LAB BLOOD ADD-ON Performing Organization Address City/[facility]/ZIP Code Phon e Number [facility] - [address] [place] [address] [address] [facility] Potassium (11/17/2020 9:03 AM SERVICE TECHNICIAN COPIER) athologist Signature Potassium, S 4.3 3.6 - 5.2 11/17/2020 DTL mmol/L 10:08 AM SERVICE TECHNICIAN COPIER Specimen Anatomical Collection Method Collection Time Receive d Time (Source) Location / / Volume Laterality Blood (Blood, 11/17/2020 9:03 AM 11/17/19 9:26 Venous) SERVICE TECHNICIAN COPIER AM SERVICE TECHNICIAN COPIER Manuel Evans M.D. LAB BLOOD ADD-ON Performing Organization Address City/[facility]/ZIP Code Phon e Number [facility] - [address] [place] [id number] [place] [address] [address] [facility] Bicarbonate (11/17/2020 9:03 AM SERVICE TECHNICIAN COPIER) athologist Signature Bicarbonate, S 25 22 - 29 11/17/2020 DTL mmol/L 10:08 AM SERVICE TECHNICIAN COPIER Specimen Anatomical Collection Method Collection Time Receive d Time (Source) Location / / Volume Laterality Blood (Blood, 11/17/2020 9:03 AM 11/17/19 9:26 Venous) SERVICE TECHNICIAN COPIER AM SERVICE TECHNICIAN COPIER Manuel Evans M.D. LAB BLOOD ADD-ON Performing Organization Address City/State/ZIP [facility] Phon e Number [facility] - [address] (ABNORMAL) S-TSH (Thyroid-Stimulating Hormone - Sensitive) (11/17/2020 9:03 AM SERVICE TECHNICIAN COPIER) P athologist Signature TSH, Sensitive 19.4 (H) 0.3 - 4.2 11/17/2020 DTL mIU/L 10:07 AM SERVICE TECHNICIAN COPIER Specimen Anatomical Collection Method Collection Time Receive d Time (Source) Location / / Volume Laterality Blood (Blood, 11/17/2020 9:03 AM 11/17/19 9:26 Venous) SERVICE TECHNICIAN COPIER AM SERVICE TECHNICIAN COPIER Manuel Evans M.D. LAB BLOOD ADD-ON Performing Organization Address City/State/ZIP Code Phon e Number [facility] - [address] [place], [place] [address] [facility] [place] [address] Laboratories-[facility] [address] (ABNORMAL) CBC with Differential, Blood (11/17/2020 9:03 AM SERVICE TECHNICIAN COPIER) Patholo gist Method Time Signature Hemoglobin 10.2 (L) 13.2 - 11/17/2020 DTL 16.6 g/dL 9:34 AM SERVICE TECHNICIAN COPIER Hematocrit 30.8 (L) 38.3 - 11/17/2020 DTL 48.6 % 9:34 AM SERVICE TECHNICIAN COPIER Erythrocytes 3.33 (L) 4.35 - 11/17/2020 DTL 5.65 9:34 AM SERVICE TECHNICIAN COPIER x10(12)/L MCV 92.5 78.2 - 11/17/2020 DTL 97.9 fL 9:34 AM SERVICE TECHNICIAN COPIER RBC Distrib Width 12.6 11.8 - 11/17/2020 DTL 14.5 % 9:34 AM SERVICE TECHNICIAN COPIER Platelet Count 167 135 - 317 11/17/2020 DTL x10(9)/L 9:34 AM SERVICE TECHNICIAN COPIER Leukocytes 6.6 3.4 - 9.6 11/17/2020 DTL x10(9)/L 9:34 AM SERVICE TECHNICIAN COPIER Neutrophils 4.75 1.56 - 11/17/2020 DTL 6.45 9:34 AM SERVICE TECHNICIAN COPIER x10(9)/L Lymphocytes 0.96 0.95 - 11/17/2020 DTL 3.07 9:34 AM SERVICE TECHNICIAN COPIER x10(9)/L Monocytes 0.44 0.26 - 11/17/2020 DTL 0.81 9:34 AM SERVICE TECHNICIAN COPIER x10(9)/L Eosinophils 0.35 0.03 - 11/17/2020 DTL 0.48 9:34 AM SERVICE TECHNICIAN COPIER x10(9)/L Basophils 0.06 0.01 - 11/17/2020 DTL 0.08 9:34 AM SERVICE TECHNICIAN COPIER x10(9)/L Specimen Anatomical Collection Method Collection Time Receive d Time (Source) Location / / Volume Laterality Blood (Blood, 11/17/2020 9:03 AM 11/17/19 9:26 Venous) SERVICE TECHNICIAN COPIER AM SERVICE TECHNICIAN COPIER Manuel Evans M.D. LAB BLOOD ADD-ON Performing Organization Address City/State/ZIP Code Phon e Number [facility] - [address] [place], [place] [address] [facility] [place] [address] Laboratories-[facility] [address] (ABNORMAL) Lipid Panel (11/17/2020 9:03 AM SERVICE TECHNICIAN COPIER) athologist Signature Cholesterol, 118 mg/dL 11/17/2020 DTL Total 10:07 AM SERVICE TECHNICIAN COPIER Comment: ----REFERENCE VALUE---- Desirable: < 200 Borderline high: 200 - 239 High: > or = 240 Triglycerides 90 mg/dL 11/17/2020 10:07 AM SERVICE TECHNICIAN COPIER DT L Comment: ----REFERENCE VALUE---- Normal: <150 Borderline high: 150-199 High: 200-499 Very high: > or =500 Cholesterol, HDL, S 34 (L) >=40 mg/dL 11/17/2020 10:07 AM SERVICE TECHNICIAN COPIER DTL Calculated LDL 66 mg/dL 11/17/2020 10:07 AM SERVICE TECHNICIAN COPIER D TL Comment: ----REFERENCE VALUE---- Desirable: <100 Above Desirable: 100-129 Borderline high: 130-159 High: 160-189 Very high: > or =190 Cholesterol, Non-HDL, Calculated 84 mg/dL 021 10:07 AM SERVICE TECHNICIAN COPIER DTL Comment: ----REFERENCE VALUE---- Desirable: <130 Above Desirable: 130-159 Borderline high: 160-189 High: 190-219 Very high: > or =220 Specimen Anatomical Collection Method Collection Time Receive d Time (Source) Location / / Volume Laterality Blood (Blood, 11/17/2020 9:03 AM 11/17/19 9:26 Venous) SERVICE TECHNICIAN COPIER AM SERVICE TECHNICIAN COPIER Manuel L Clavell M.D. LAB BLOOD ADD-ON Performing Organization Address City/[facility] Code Phon e Number [facility] - [address] [place], [place] [address] [facility] [place], [place] [id number] [place] [address] (ABNORMAL) BUN (Blood Urea Nitrogen) (11/17/2020 9:03 AM SERVICE TECHNICIAN COPIER) P athologist Signature BUN (Blood Urea 57 (H) 8 - 24 11/17/2020 DTL Nitrogen), S mg/dL 10:08 AM SERVICE TECHNICIAN COPIER Specimen Anatomical Collection Method Collection Time Receive d Time (Source) Location / / Volume Laterality Blood (Blood, 11/17/2020 9:03 AM 11/17/19 9:26 Venous) SERVICE TECHNICIAN COPIER AM SERVICE TECHNICIAN COPIER Manuel Evans M.D. LAB BLOOD ADD-ON Performing Organization Address City/[facility]/ZIP Code Phon e Number [facility] - [address] [place], [place] [address] [place] [address] [place] [address] Laboratories-[address] AST (Aspartate Aminotransferase) (11/17/2020 9:03 AM SERVICE TECHNICIAN COPIER) Patholo gist Method Time Signature Aspartate 31 8 - 48 11/17/2020 DTL Aminotransferase U/L 10:08 AM SERVICE TECHNICIAN COPIER (AST), S Specimen Anatomical Collection Method Collection Time Receive d Time (Source) Location / / Volume Laterality Blood (Blood, 11/17/2020 9:03 AM 11/17/19 9:26 Venous) SERVICE TECHNICIAN COPIER AM SERVICE TECHNICIAN COPIER Manuel Evans M.D. LAB BLOOD ADD-ON Performing Organization Address City/[facility] Code Phon e Number [facility] - [address] [place], [place] [address] [facility] [place], [place] [phone] [place] [address] (ABNORMAL) Creatinine with Estimated GFR (11/17/2020 9:03 AM SERVICE TECHNICIAN COPIER) Analysis Performed At Patho logist Time Signature Creatinine 1.86 (H) 0.74 - 11/17/2020 DTL 1.35 mg/dL 10:07 AM SERVICE TECHNICIAN COPIER eGFR-Non 34 (L) >=60 11/17/2020 DTL Black/ mL/min/BSA 10:07 AM SERVICE TECHNICIAN COPIER Egyptian Comment: ----ADDITIONAL INFORMATION---- Estimated GFR calculated using the 2009 CKD_EPI creatinine equation. eGFR-Black/ 39 (L) >=60 mL/min/BSA 2020 10:07 AM SERVICE TECHNICIAN COPIER DTL Comment: ----ADDITIONAL INFORMATION---- Estimated GFR calculated using the 2009 CKD_EPI creatinine equation. Specimen Anatomical Collection Method Collection Time Receive d Time (Source) Location / / Volume Laterality Blood (Blood, 11/17/2020 9:03 AM 11/17/19 9:26 Venous) SERVICE TECHNICIAN COPIER AM SERVICE TECHNICIAN COPIER Manuel Evans M.D. LAB BLOOD ADD-ON Performing Organization Address [facility] Phon e Number [facility] - [address] [place], [place] [address] [place] [address] (ABNORMAL) Glucose, Fasting (11/17/2020 9:03 AM SERVICE TECHNICIAN COPIER) P athologist Signature Glucose, P 219 (H) 70 - 100 11/17/2020 DTL mg/dL 9:56 AM SERVICE TECHNICIAN COPIER Last Intake 1 hr 11/17/2020 DTL 9:26 AM SERVICE TECHNICIAN COPIER Specimen Anatomical Collection Method Collection Time Receive d Time (Source) Location / / Volume Laterality Blood (Blood, 11/17/2020 9:03 AM 11/17/19 9:26 Venous) SERVICE TECHNICIAN COPIER AM SERVICE TECHNICIAN COPIER Manuel Evans M.D. LAB BLOOD NON ADD-ON Performing Organization Address City/[facility] Code Phon e Number [facility] - [address] [place], [place] [address] [facility] [place] [address] Sodium (11/17/2020 9:03 AM SERVICE TECHNICIAN COPIER) P athologist Signature Sodium, S 140 135 - 145 11/17/2020 DTL mmol/L 10:08 AM SERVICE TECHNICIAN COPIER Specimen Anatomical Collection Method Collection Time Receive d Time (Source) Location / / Volume Laterality Blood (Blood, 11/17/2020 9:03 AM 11/17/19 9:26 Venous) SERVICE TECHNICIAN COPIER AM SERVICE TECHNICIAN COPIER Manuel Evans M.D. LAB BLOOD ADD-ON Performing Organization Address City/State/ZIP Code Phon e Number [facility] - [address] [place], [place] [address] [facility] [place] [address] Laboratories-[facility] [address] documented [...] documented as of this encounter Care Teams Jail Keeper Relationship Specialty Start Date End Date Shayla Alford D.O. PCP - General Internal Medicine 05/22/[address] [phone] documented as of this encounter
--- OUTSIDE RECORDS SUMMARY | 2022-05-28 07:15 | XMS_ITS | Encounter Summary ---
:1945 Author Organization [facility] Address [address] [place] [address] Care Team Providers Name Role Phone Shayla Alford D.O. Primary Care Provider [phone] Reason for Visit Reason Comments Care Coordination Follow up Encounter Details Date Type Department Care Team Description 06/08/2020 [facility] A, R.N. (Follow up) in [place], [facility] [address] [place], [place] [address] [address] [place], [place] [phone] [address] (Work) [phone] Social History Tobacco Use Types Packs/Day Years [...] do you attend anabaptism or Never 2021 mosque services? Do you [...] completed or the highest Martin, MEd, ORE CHARGER, CAYDEN) degree you have received? Sex Assigned [...] The patient was instructed to contact the laboratory animal care veterinarian with any questions or concerns and statedunderstanding [...] documented as of this encounter Care Teams Compliance Examiner Relationship Specialty Start Date End Date Shayla Alford D.O. PCP - General Internal Medicine 05/22/[address] [address] [phone] (work) documented as of this encounter
--- OUTSIDE RECORDS SUMMARY | 2022-05-28 07:15 | XMS_ITS | Encounter Summary ---
:1945 Author Organization [facility] Address [address] [place] [address] Care Team Providers Name Role Phone Shayla Alford D.O. Primary Care Provider [phone] Encounter Details Date Type Department Care Team Description 06/09/2020 Hospital Encounter Department of [place] Screen ing Examination Laboratory Medicine n, Gianna Mcguire For Viral Disease in [place] [address] [address] [address] [place] [phone] Social History Tobacco Use [...] do you attend protestant or Never 2021 mosque services? Do you [...] completed or the highest Martin, MEd, DIRECTOR SHOPPER MARKETING, CAYDEN) degree you have received? Sex [...] 2 ([facility]), Hypertension Essential Primary tgbowf-lzfjyhvn-aotrzak 2 capsules 3 (three) 0 10/12/2020 (CREON) times a day with 6,000-19,000-30,000 Unit meals. As directed per DR capsule hyskyn-wxeuzpgv-xsqlxul Take 1 capsule by 0 10/12/2020 (CREON) mouth as needed for 6,000-19,000-30,[address] capsule mhvhqe-luqbhdmf-xjrzksp Take 1 capsule by 0 10/12/2020 (ezidpa-nfjhocse-hqgyvbx) mouth 3 (three) 6,000-19,000-30,000 Unit times a [...] RNA, V Asymptomatic (06/09/2020 12:34 PM CDT) [facility] Method Time Signature SARS-CoV-2 Swab, 06/09/2020 [...] is performed using the Aptima SARS-CoV-2 assay ([employer] which has received Emergency Use Authori zation (EUA) by the U.S. Food and Drug Administration. Fact sheets for this Emergency Use Autho rization (EUA) assay can be found at the following links: For Healthcare Providers: https://www.Scopis a.gov/media/937077/download For Patients: https://www.fda.gov/media/ 919690/download Specimen Anatomical Collection Method Collection Time Receive d Time (Source) Location / / Volume Laterality Varies 06/09/2020 12:34 06/09/2020 2:18 (Nasopharynx) PM CDT PM CDT Shayla Alford D.O. LAB MICROBIOLOGY - GENERAL ORDERABLES Performing Organization Address City/State/[facility] Phon e Number [facility]- [address] [place] [phone] [place] [address] [place] [address] [address] documented in this encounter Visit Diagnoses Diagnosis Screening Examination For Viral Disease documented in this encounter Additional Health Concerns Infection Onset Date Last Indicated Resolved Time COVID19 Pending 06/09/2020 06/09/2020 06/09/2020 9:05 PM CDT Assessment Noted Time PHQ-9 Depression Total Score: 18 04/28/2018 11:27 AM C DT documented as of this encounter Care Teams Forming Roll Operator Relationship Specialty Start Date End Date Shayla Alford D.O. PCP - General Internal Medicine 05/22/20 [address] [place] [phone] documented as of this encounter
--- OUTSIDE RECORDS SUMMARY | 2022-05-28 07:15 | XMS_ITS | Encounter Summary ---
:1945 Author Organization [facility] Address [address] [place] [address] Care Team Providers Name Role Phone Shayla Alford D.O. Primary Care Provider [phone] Encounter Details Date Type Department Care Team Description 06/06/2020 Hospital Encounter Department of Dolores, Personal History Of Laboratory Medicine Rhoda Mims. Malignant Neoplasm Of and Pathology, [address] [facility] [place], [place] [address] [facility] [address] [place], [place] [phone] (Work) [phone] Social History Tobacco Use Types Packs/Day Years [...] do you attend sabianist or Never 2021 uatsdin services? Do you [...] have completed or the highest Martin, MEd, SAMPLING EXPERT, CAYDEN) degree you have received? Sex Assigned [...] 2 ([facility]), Hypertension Essential Primary kwbeoi-zstttrvy-zejcvyl 2 capsules 3 (three) 0 10/12/2020 (CREON) times a day with 6,000-19,000-30,000 Unit meals. As directed per DR capsule nedzxs-wwwdmsks-injnxsr Take 1 capsule by 0 10/12/2020 (CREON) mouth as needed for 6,000-19,000-30,[address] capsule klliat-euiezoie-rzloktm Take 1 capsule by 0 10/12/2020 (kqkyio-qjoljcqi-oblymfm) mouth 3 (three) 6,000-19,000-30,000 Unit times a [...] Priority Date/Time Associated Diagnosis Comme nts CYTOLOGY NON-WELDING MACHINE OPERATOR GAS Routine 06/06/2020 1:33 PM Personal History O f Results for this (SCHEDULED) CDT Malignant Neoplasm procedure are in Of Bladder the results section. documented in this encounter Results Cytology Non-WELDING MACHINE OPERATOR GAS (Scheduled) (06/06/2020 1:33 PM CDT) Component Value Ref Test Analysis Performed At [facility] gist Range Method Time Signature 06/07/2020 DTL 2:47 PM CDT Report Dafne Rodriguez M.D. [phone] 06/07/2020 DTL electronically I verify that I [...] Address City/State/ZIP Code Phon e Number [facility] - [address] [place], [place] [address] [facility] [place] [address] Laboratories-[facility] [address] documented in this encounter Visit Diagnoses Diagnosis Personal History Of Malignant Neoplasm O f Bladder documented in this encounter Additional Health Concerns Assessment Noted Time PHQ-9 Depression Total Score: 18 04/28/2018 11:27 AM C DT documented as of this encounter Care Teams Web Designer Developer Relationship Specialty Start Date End Date Shayla Alford D.O. PCP - General Internal Medicine 05/22/[address] [phone] documented as of this encounter
--- OUTSIDE RECORDS SUMMARY | 2022-05-28 07:15 | XMS_ITS | Encounter Summary ---
:1945 Author Organization [facility] Address [address] [place] [address] Care Team Providers Name Role Phone Shayla Alford D.O. Primary Care Provider [phone] Encounter Details Date Type Department Care Team Description 05/30/2020 Clinical Communication Department of [facility], [place] M.D. [facility], [facility], [facility] [address] [place], [place] [address] [facility] [address] [place], [place] [phone] [address] (Work) [phone] Social History Tobacco Use Types Packs/Day Years [...] do you attend confucianist or Never 2021 mosque services? Do you [...] have completed or the highest Martin, MEd, QUANTITATIVE MANAGER, CAYDEN) degree you have received? Sex [...] documented as of this encounter Care Teams Concreting Supervisor Relationship Specialty Start Date End Date Shayla Alford D.O. PCP - General Internal Medicine 05/22/[address] [phone] documented as of this encounter
--- OUTSIDE RECORDS SUMMARY | 2022-05-28 07:15 | XMS_ITS | Encounter Summary ---
:1945 Author Organization [facility] Address [address] [place] [address] Care Team Providers Name Role Phone Shayla Alford D.O. Primary Care Provider [phone] Encounter Details Date Type Department Care Team Description 06/14/2020 Diagnostic Division of Pulmonary Rocío As thma Extrinsic Moderate (HCC); Medicine in [place], Gianna Mcguire Effusion Pleural; [place] [address] Dyspnea Multifactorial [address] [place], [place] [address] [phone] Social History Tobacco Use Types Packs/Day Years [...] do you attend mosque or Never 2021 voodoo services? Do you [...] have completed or the highest Martin, MEd, POWDER COMPOUNDER, CAYDEN) degree you have received? Sex Assigned [...] as of this encounter Care Teams College Service Officer Relationship Specialty Start Date End Date Shayla Alford D.O. PCP - General Internal Medicine 05/22/[address] [address] documented as of this encounter
--- OUTSIDE RECORDS SUMMARY | 2022-05-28 07:15 | XMS_ITS | Encounter Summary ---
:1945 Author Organization [facility] Address [address] [place] [address] Care Team Providers Name Role Phone Shayla Alford D.O. Primary Care Provider [phone] Encounter Details Date Type Department Care Team Description 2020 Orders Only Department of Internal Selvin Alford [facility] Risk Medication Medicine in Shayla Dixon, DKyle Wade (Primary Dx) [place] [address] [place] [phone] Social History Tobacco Use Types Packs/Day Years [...] have completed or the highest Martin, MEd, PAINTING AND COATING WORKER, CAYDEN) degree you have received? Sex Assigned at Date Recorded Male 05/21/2018 2:34 PM CDT documented as of this encounter Plan of Treatment Not on filedocumented as of this encounter Results (ABNORMAL) Hepatic Function Panel (03/21/2021 9:29 AM CDT) [facility] gist Method Time Signature Bilirubin, Total, P [...] e Number [facility]- [address] [place] [address] [facility] [place] [address] System in [place] [address] documented in this encounter Visit Diagnoses Diagnosis High Risk Medication - Primary documented in this encounter Additional Health Concerns Assessment Noted Time PHQ-9 Depression Total Score: 18 04/28/2018 11:27 AM C DT documented as of this encounter Care Teams Legal Executive Relationship Specialty Start Date End Date Shayla Alford D.O. PCP - General Internal Medicine 05/22/[address] [place] [address] documented as of this encounter
--- OUTSIDE RECORDS SUMMARY | 2022-05-28 07:15 | XMS_ITS | Encounter Summary ---
:1945 Author Organization [facility] Address [address] [place] [address] Care Team Providers Name Role Phone Shayla Alford D.O. Primary Care Provider [phone] Reason for Visit Reason Comments Care Coordination follow up Encounter Details Date Type Department Care Team Description 06/20/2020 Patient Outreach [facility] A, R.N. (follow up) in [place], [facility] [address] [place], [place] [address] [address] [place], [place] [phone] [address] (Work) [phone] Social History Tobacco Use Types Packs/Day Years [...] do you attend sikh or Never 2021 yazidi services? Do you [...] have completed or the highest Martin, MEd, ADHESIVE PRIMER, CAYDEN) degree you have received? Sex Assigned [...] of his medical care followed by the [facility] in [place]. Upcoming [place] appointments were reviewed. Patient's plan of care was discussed and mailed to him via [employer] at this time. Chronic disease follow up: [...] provider prior to starting new medications, including kqdc-kmp-muwfbno and herbal supplements. PROBLEM SOLVING -Recognize barriers [...] clinic business hours. After clinichours, call Expert product support engineer Line for concerning symptoms. Call . Appointment line: For Family Medicine appointments in [place] call [phone] or Internal Medicine appointments [phone]. To reschedule or cancel an appointment with your RN Field Contact Person, call or leave a message through the switchboard at [phone]. Nurse Field Contact Person: ALLEY Bond. You may call Friday-Friday from 7:30-4:00. Primary Care: Keep regular follow-up appointments with your Primary Care Provider. Call your Care Team during office hours or call the clinic (above numbers). You may also send a message to your Provider or Field Contact Person/ Care Team through your Patient Online Services [...] apple juice ? cup cooked cereal ??? [place] ? cup haresh freddy ? cup sherbet [...] was instructed to contact the health care liaison with any questions or concerns and statedunderstanding [...] as of this encounter Care Teams Clinical Nursing Professor Relationship Specialty Start Date End Date Shayla Alford D.O. PCP - General Internal Medicine 05/22/[address] [phone] (work) documented as of this encounter
--- OUTSIDE RECORDS SUMMARY | 2022-05-28 07:15 | XMS_ITS | Encounter Summary ---
:1945 Author Organization [facility] Address [address] [place] [address] Care Team Providers Name Role Phone Shayla Alford D.O. Primary Care Provider [phone] Encounter Details Date Type Department Care Team [...] do you attend yarsani or Never 2021 moravian services? Do you [...] have completed or the highest Martin, MEd, EMPLOYEE RELATIONS SPECIALIST, CAYDEN) degree you have received? [...] as of this encounter Care Teams Accounting Practice Manager Relationship Specialty Start Date End Date Shayla Alford D.O. PCP - General Internal Medicine 05/22/20 [address] [place] [address] documented as of this encounter
--- OUTSIDE RECORDS SUMMARY | 2022-05-28 07:15 | XMS_ITS | Encounter Summary ---
:1945 Author Organization [facility] Address [address] [place] [address] Care Team Providers Name Role Phone Shayla Alford D.O. Primary Care Provider [phone] Reason for Visit Reason Comments Care Coordination Encounter Details Date Type Department Care Team Description 05/31/2020 Patient Outreach [facility] Internal Medicine [place] [address] [facility] [address] [place] [phone] Social History Tobacco Use Types Packs/Day Years [...] you attend jehovah's witness or Never 2021 islam services? Do you [...] have completed or the highest Martin, MEd, FELT MACHINE MECHANIC, CAYDEN) degree you have received? [...] documented as of this encounter Care Teams Programming Intern Relationship Specialty Start Date End Date Shayla Alford D.O. PCP - General Internal Medicine 05/22/20 [address] [place] [phone] documented as of this encounter
--- OUTSIDE RECORDS SUMMARY | 2022-05-28 07:15 | XMS_ITS | Encounter Summary ---
:1945 Author Organization [facility] Address [address] [place] [address] Care Team Providers Name Role Phone Shayla Alford D.O. Primary Care Provider [phone] Reason for Visit Reason Comments Care Coordination Monthly billing - 2019 Encounter Details Date Type Department Care Team Description 06/28/2020 Patient Outreach [facility] Internal Medicine A, R.N. (Monthly billing - in [place], [address] [facility] 2019) [place], [place] [address] [address] [place], [place] [phone] (Work) [phone] Social History Tobacco Use Types Packs/Day Years [...] have completed or the highest Martin, MEd, LEASING REPRESENTATIVE, CAYDEN) degree you have received? Sex [...] as of this encounter Care Teams Java J2Ee Application Developer Relationship Specialty Start Date End Date Shayla Alford D.O. PCP - General Internal Medicine 05/22/[address] [address] documented as of this encounter
--- OUTSIDE RECORDS SUMMARY | 2022-05-28 07:15 | XMS_ITS | Encounter Summary ---
:1945 Author Organization [facility] Address [address] [place] [address] Care Team Providers Name Role Phone Shayla Alford D.O. Primary Care Provider [phone] Reason for Referral Outpatient (Routine) - Modified Order Specialty Diagnoses / Procedures Referred By Contact Refer red To Contact Community Internal ARMAAN Alford [facility] Medicine Tulio Mcguire [address] [place] [address] Referral ID Status Reason Start Date Expiration Date Visits V isits Requested Authorized [id number] Modified 06/30/2020 06/30/2021 1 1 Order Scheduling [...] Expiration Date Visits Requ ested Visits Authorized [id number] Closed 05/22/2020 05/22/2021 1 1 Encounter Details Date Type Department Care Team Description 06/30/2020 Office Visit Department of Internal Rocío 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 Do [...] have completed or the highest Martin, MEd, SLATE ROOFER, CAYDEN) degree you have received? Sex Assigned [...] condition. He is currently on insulin. We [id number] check a hemoglobin A1c. The following portions [...] condition. He is currently on insulin. We [id number] check a hemoglobin A1c. - Hemoglobin A1c; [...] Future; Expected date: 06/30/2020 - Thyroid Function [place]; Future; Expected date: 06/30/2020 #6 Screening Cancer Colon Patient is due for his colon cancer screening, we will be seen the patient in 1 month for preop. Other orders - [facility] Internal Medicine office visit (clinic); Future; Expected date: 07/31/2020 Time spent today 42 minutes more than 50% counseling Electronically signed by: Shayla Alford D.O. 06/30/20 12:31 PM CDT documented in this encounter Plan of Treatment Scheduled Referrals Name Type Priority Associated Diagnoses Order S [facility] Internal Outpatient Referral Routine Ex pected: Medicine office 07/31/2020 visit (clinic) (Approximate) , Expires: 06/30/2023 documented as of this encounter Results (ABNORMAL) Thyroid Function [place] (07/01/2020 10:01 AM CDT) P athologist Signature [...] D.O. LAB BLOOD ADD-ON Performing Organization Address City/[facility]/ZIP Code Phon e Number [facility] [address] [facility] [place] [address] [place] [address] System in [place] [address] (ABNORMAL) ALT (Alanine Aminotransferase) (07/01/2020 10:01 AM CDT) [facility] Method Time Signature Alanine 65 (H) 7 - 55 07/01/2020 [place] Aminotransferase U/L 11:26 AM CDT (ALT), P Specimen Anatomical Collection Method Collection Time Receive d Time (Source) Location / / Volume Laterality Blood (Blood, 07/01/2020 10:01 07/01/2020 Venous) AM CDT 10:07 AM CDT Shayla Alford D.O. LAB BLOOD ADD-ON Performing Organization Address City/State/ZIP Code Phon e Number [facility] [address] [facility] [place] [address] [facility] [place] [address] System in [place] [address] AST (Aspartate Aminotransferase) (07/01/2020 10:01 AM CDT) [facility] gist Method Time Signature Aspartate 38 8 - 48 07/01/2020 [place] Aminotransferase U/L 11:26 AM CDT (AST), P Specimen Anatomical Collection Method Collection Time Receive d Time (Source) Location / / Volume Laterality Blood (Blood, 07/01/2020 10:01 07/01/2020 Venous) AM CDT 10:07 AM CDT Shayla Alford D.O. LAB BLOOD ADD-ON Performing Organization Address City/State/ZIP Code Phon e Number [facility] [address] [place] [address] [place] [address] System in [place] [address] (ABNORMAL) Hemoglobin A1c [...] City/State/ZIP Code Phon e Number [facility] [address] [place] [address] [place] [facility] [place] [address] System in [place] [address] documented in this [...] as of this encounter Care Teams Software Programmer Relationship Specialty Start Date End Date Shayla Alford D.O. PCP - General Internal Medicine 05/22/[address] [place] [address] documented as of this encounter
--- OUTSIDE RECORDS SUMMARY | 2022-05-28 07:15 | XMS_ITS | Encounter Summary ---
:1945 Author Organization [facility] Address [address] [place] [address] Care Team Providers Name Role Phone Shayla Alford D.O. Primary Care Provider [phone] Reason for Visit Reason Comments Care Coordination Monthly billing - 2019 Encounter Details Date Type Department Care Team Description 05/29/2020 Patient Outreach [facility] A, R.N. (Monthly billing - in [place], [address] [email or web address] 2019) [place], [place] [address] [address] [place], [place] [phone] [address] (Work) [phone] Social History Tobacco Use Types Packs/Day Years [...] have completed or the highest Martin, MEd, MELANGEUR OPERATOR, CAYDEN) degree you have received? Sex [...] documented as of this encounter Care Teams Chin Strap Maker Relationship Specialty Start Date End Date Shayla Alford D.O. PCP - General Internal Medicine 05/22/[address] [phone] documented as of this encounter
--- OUTSIDE RECORDS SUMMARY | 2022-05-28 07:15 | XMS_ITS | Encounter Summary ---
:1945 Author Organization [facility] Address [address] [place] [address] Care Team Providers Name Role Phone Shayla Alford D.O. Primary Care Provider Reason for Referral Outpatient (Routine) - Closed Specialty Diagnoses / Procedures Referred By Contact Refer red To Contact Diagnoses Personal History Of Malignant Neoplasm Of Bladder Prasanna Bernal M.D. [facility] Region Procedures Cystoscopy (specific provider) [address] [place] [address] Referral ID Status Reason Start Date Expiration Date Visits Requ ested Visits Authorized [id number] Closed 06/12/2020 06/12/2021 1 1 Reason for Visit Reason Comments Bladder Cancer 6 month cystoscopy Outpatient (Routine) - Canceled Specialty Diagnoses / Procedures Referred By Contact Refer red To Contact Diagnoses Personal History Of Malignant Neoplasm Of Bladder Prasanna Bernal [facility].D. [facility] Procedures Cystoscopy (specific provider) [address] [place] [phone] Referral ID Status Reason Start Date Expiration Date Visits V isits Requested Authorized [id number] Canceled 11/25/2019 11/24/2020 1 1 Encounter Details Date Type Department Care Team Description 06/12/2020 Procedure visit Department of Urology Prasanna Bernal, Personal History Of laron Patel M.D. Malignant Neoplasm Of [place] [address]adder [address] [place], [place] [phone] Social History Tobacco Use Types Packs/Day [...] have completed or the highest Martin, MEd, TRAY SERVICE WORKER, CAYDEN) degree you have received? Sex [...] as of this encounter Results (ABNORMAL) Cytology Non-TERRITORY SALES REPRESENTATIVE (Scheduled) (06/18/2021 9:08 AM CDT) Component Value Ref Test Analysis Performed At [facility] Method Time Signature 06/19/2021 HKCY [...] City/State/ZIP Code Phon e Number [facility]- [address] [place] [address] Cyt[address] [place] [address] documented in this encounter Visit Diagnoses Diagnosis Personal History Of Malignant Neoplasm O f Bladder documented in this encounter Additional Health Concerns Assessment Noted Time PHQ-9 Depression Total Score: 18 04/28/2018 11:27 AM C DT documented as of this encounter Care Teams Supervisor Kosher Dietary Service Relationship Specialty Start Date End Date Shayla Alford D.O. PCP - General Internal Medicine 05/22/20 [address] [place] [phone] documented as of this encounter
--- OUTSIDE RECORDS SUMMARY | 2022-05-28 07:15 | XMS_ITS | Encounter Summary ---
:1945 Author Organization [facility] Address [address] [place] [address] Care Team Providers Name Role Phone Shayla Alford D.OMauro Primary Care Provider [phone] Encounter Details Date Type Department Care Team Description 07/01/2020 Hospital Encounter Department of Alexys Diabete s Mellitus Type 2 With Diabetic Chronic Kidney Disease Hyperglycemic (HCC); Laboratory Medicine Shayla queen High Ris k Medication in [place], D.O. [place] [address] [place] [phone] Social History Tobacco Use [...] do you attend christianity or Never 2021 caodaism services? Do you [...] have completed or the highest Martin, MEd, EXERCISE PHYSIOLOGY PROFESSOR, CAYDEN) degree you have received? Sex [...] tabletIndications: daily. 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 As directed per DR capsule pufowx-jacozjrg-jagimlv Take 1 capsule by 0 10/12/2020 (CREON) mouth as needed for 6,000-19,000-30,[address] capsule oggaot-kkcnmbot-jbiuour Take 1 capsule by 0 10/12/2020 (lhlmux-ptnzxkdy-gysxraw) mouth 3 (three) 6,000-19,000-30,000 Unit times a [...] Name Priority Date/Time Associated Diagnosis Comme nts [place] T4 FREE Routine 07/01/2020 10:01 Results for [...] Kidney the results Disease section. Hyperglycemic (HCC) [place] MICROSOMAL AB EA/TPO Routine 07/01/2020 9:58 R [...] 10:01 07/01/2020 AM CDT 10:07 AM CDT Shalya Alford D.O. LAB BLOOD ADD-ON Performing Organization Address City/State/ZIP Code Phon e Number [facility]- [address] [place] [address] [place] [address] System in [place] [address] (ABNORMAL) Thyroid Function [place] (07/01/2020 10:01 AM CDT) athologist Signature TSH, [...] D.O. LAB BLOOD ADD-ON Performing Organization Address City/[facility]/ZIP Code Phon e Number [facility]- [address] [place] [address] [place] [address] System in [place] [address] (ABNORMAL) ALT (Alanine Aminotransferase) (07/01/2020 10:01 AM CDT) [facility] Method Time Signature Alanine 65 (H) 7 - 55 07/01/2020 [place] Aminotransferase U/L 11:26 AM CDT (ALT), P Specimen Anatomical Collection Method Collection Time Receive d Time (Source) Location / / Volume Laterality Blood (Blood, 07/01/2020 10:01 07/01/2020 Venous) AM CDT 10:07 AM CDT Shayla Alford D.O. LAB BLOOD ADD-ON Performing Organization Address City/State/ZIP Code Phon e Number [facility]- [address] [place] [address] [place] [address] System in [place] [address] AST (Aspartate Aminotransferase) (07/01/2020 10:01 AM CDT) [facility] Method Time Signature Aspartate 38 8 - 48 07/01/2020 [place] Aminotransferase U/L 11:26 AM CDT (AST), P Specimen Anatomical Collection Method Collection Time Receive d Time (Source) Location / / Volume Laterality Blood (Blood, 07/01/2020 10:01 07/01/2020 Venous) AM CDT 10:07 AM CDT Shayla Alford D.O. LAB BLOOD ADD-ON Performing Organization Address City/State/ZIP Code Phon e Number [facility]- [address] [place] [address] [place] [address] System in [place] [address] (ABNORMAL) Hemoglobin A1c (07/01/2020 [...] e Number [facility]- [address] [place] [address] [place] [address] System in [place] [address] Thyroperoxidase (TPO) Antibodies, Serum (07/01/2020 9:58 AM CDT) Patholo gist Method Time Signature Thyroperoxidase Ab, 0.9 <9.0 07/03/2020 DTL S IU/mL 8:09 AM CDT Specimen Anatomical Collection Method Collection Time Receive d Time (Source) Location / / Volume Laterality Blood 07/01/2020 9:58 AM 0 9:43 CDT AM CDT Shyala Alford D.O. LAB BLOOD NON ADD-ON Performing Organization Address City/State/ZIP Code Phon e Number [facility] [address] [place] [address] [facility] [place] [place] [address] [facility] [address] documented in this encounter Visit Diagnoses Diagnosis Diabetes Mellitus Type 2 With Diabetic C hronic Kidney Disease Hyperglycemic (HCC) High Risk Medication documented in this encounter Additional Health Concerns Assessment Noted Time PHQ-9 Depression Total Score: 18 04/28/2018 11:27 AM C DT documented as of this encounter Care Teams Hotel Service Manager Relationship Specialty Start Date End Date Shayla Alford D.O. PCP - General Internal Medicine 05/22/20 [address] [place] [phone] documented as of this encounter
--- OUTSIDE RECORDS SUMMARY | 2022-05-28 07:15 | XMS_ITS | Encounter Summary ---
:1945 Author Organization [facility] Address [address] [place] [address] Care Team Providers Name Role Phone Shayla Alford D.O. Primary Care Provider [phone] Encounter Details Date Type Department Care Team Description 06/02/2020 Hospital Encounter Department of [facility] ([facility]) Laboratory Medicine Pato Ojeda in [place], [address] [place], [place] [address] [facility] [address] [facility] [place] [phone] [address] (Work) [phone] Social History Tobacco Use Types Packs/Day Years [...] do you attend druze or Never 2021 scientology services? Do you [...] have completed or the highest Martin, MEd, APRON TRIMMER, CA[place]) degree you have received? Sex [...] [facility]), Hypertension Essential Primary eyjfvp-mylshzcm-rhgfdsk 2 capsules 3 (three) 0 10/12/2020 (CREON) times a day with 6,000-19,000-30,000 Unit meals. As directed per DR capsule fjiptb-rmhaelfd-fxptnff Take 1 capsule by 0 10/12/2020 (CREON) mouth as needed for 6,000-19,000-30,[address] capsule tyvfqv-inurhkri-dtbbsdv Take 1 capsule by 0 10/12/2020 (lbyrno-pytgozcc-lrxcsmb) mouth 3 (three) 6,000-19,000-30,000 Unit times a [...] patient: Not applicable Call back number: [phone] Septic Tank Installer: Not applicable Information provided: Called and spoke with patient. Informed him of his results and Dr. Da Silva's recommendations as listed below. automotive salesperson/patient received and understood education/information provided: Yes automotive salesperson/patient agreed to the Plan of Care: [...] eGFR-Black/Afri 37 (L) >=60 06/02/2020 OWAT can Lithuanian mL/min/BSA 1:23 PM CDT Comment: ----ADDITIONAL INFORMATION---- Estimated GFR calculated using the 2009 CKD_EPI creatinine equation. eGFR Non-Black/ 32 (L) >=60 mL/min/BSA 06/02/2020 1:23 PM CDT OWAT Lithuanian Comment: ----ADDITIONAL INFORMATION---- Estimated GFR calculated using [...] [facility]- [address] [place] [address] [facility] [place] [address] System in [place] [address] documented in this encounter Visit Diagnoses Diagnosis Failure Heart (HCC) documented in this encounter Additional Health Concerns Assessment Noted Time PHQ-9 Depression Total Score: 18 04/28/2018 11:27 AM C DT documented as of this encounter Care Teams Maintenance And Repair Worker Relationship Specialty Start Date End Date Shayla Alford D.O. PCP - General Internal Medicine 05/22/[address] [address] documented as of this encounter
--- OUTSIDE RECORDS SUMMARY | 2022-05-28 07:16 | XMS_ITS | Encounter Summary ---
:1945 Author Organization [facility] Address [address] [place] [address] Care Team Providers Name Role Phone Chris Billings M.D. Primary Care Provider [phone] Encounter Details Date Type Department Care Team Description 05/15/2020 Episode Changes Department of [facility] Ronda Fernandez, Medicine, [facility], R.N. in [place], [place] [address] [facility] [address] [place] [address] [phone] Social History Tobacco Use Types Packs/Day Years [...] do you attend confucianist or Never 2021 buddhist services? Do you [...] have completed or the highest Martin, MEd, OPHTHALMIC TECH, CAYDEN) degree you have received? Sex Assigned at Date Recorded Male 05/21/2018 2:34 PM CDT documented as of this encounter Plan of Treatment Not on filedocumented as of this encounter Visit Diagnoses Not on filedocumented in this encounter Additional Health Concerns Assessment Noted Time PHQ-9 Depression Total Score: 18 04/28/2018 11:27 AM C DT documented as of this encounter Care Teams Railroad Track Inspector Relationship Specialty Start Date End Date Chris Billings M.B.BMauroSMauro, M.Coleman. PCP - General Family Medicine 01/10/20 05/21/[address] [place] [address] [place] [address] documented as of this encounter
--- OUTSIDE RECORDS SUMMARY | 2022-05-28 07:16 | XMS_ITS | Encounter Summary ---
:1945 Author Organization [facility] Address [address] [place] [address] Care Team Providers Name Role Phone Shayla Alford D.O. Primary Care Provider [phone] Reason for Visit Reason Comments Care Coordination Follow up Encounter Details Date Type Department Care Team Description 05/26/2020 Patient Outreach Department of [facility] Internal Medicine A, R.N. (Follow up) in [place], [facility] [address] [place], [place] [address] [address] [place], [place] [phone] [address] (Work) [phone] Social History Tobacco Use Types Packs/Day Years [...] do you attend muslim or Never 2021 judaism services? Do you [...] have completed or the highest Martin, MEd, BINDING PRINTER, CAYDEN) degree you have received? Sex Assigned at Date Recorded Male 05/21/2018 2:34 PM CDT documented as of this encounter Progress Notes Ronda Fernandez RShama. - 05/26/2020 3:39 PM CDT SUBJECTIVE REASON FOR VISIT Adult Medical Care Coordination Follow-Up HISTORY OF PRESENT ILLNESS Jonnathan Costa reports he had 1 hospitalizations since last contact. Admitted to [facility] in [place], [place]. Summary of the discussion: We discussed [...] to get up if you do fall 7134-96 were mailed to the patient on this [...] side, he will discuss this with his embroidery patternmaker in [place] on June 06. No concerns at this [...] clinic business hours. After clinichours, call Expert leasing director Line for concerning symptoms. Call . Appointment line: For Family Medicine appointments in [place] call [phone] or Internal Medicine appointments [phone]. To reschedule or cancel an appointment with your RN Nautical Instrument Mechanic, call or leave a message through the switchboard at [phone]. Nurse Nautical Instrument Mechanic: ALLEY Bond. You may call Friday-Friday from 7:30-4:00. Primary Care: Keep regular follow-up appointments with your Primary Care Provider. Call your Care Team during office hours or call the clinic (above numbers). You may also send a message to your Provider or Nautical Instrument Mechanic/ Care Team through your Patient Online Services [...] The patient was instructed to contact the personal care aide with any questions or concerns [...] able to connect with the primary care team/personal care aide when the illnessworsened because I'm not sure [...] as of this encounter Care Teams Regional Service Manager Relationship Specialty Start Date End Date Shayla Alford D.O. PCP - General Internal Medicine 05/22/[address] [address] documented as of this encounter
--- OUTSIDE RECORDS SUMMARY | 2022-05-28 07:16 | XMS_ITS | Encounter Summary ---
:1945 Author Organization [facility] Address [address] [place] [address] Care Team Providers Name Role Phone Chris Billings M.D. Primary Care Provider [phone] Reason for Referral MRI/CAT/PET Scan (Routine) - Closed Specialty Diagnoses / Procedures Referred By Contact Refer red To Contact Radiology Diagnoses Effusion Pleural Shayla Alford [facility] Procedures CT Chest without IV Contrast D.O. [address] [place] [phone] Referral ID Status Reason Start Date Expiration Date Visits Requ ested Visits Authorized [id number] Closed 05/16/2020 05/16/2021 1 1 Reason for Visit MRI/CAT/PET Scan (Routine) - Closed Specialty Diagnoses / Procedures Referred By Contact Refer red To Contact Radiology Diagnoses Effusion Pleural Shayla Alford [facility] [place] [facility] Procedures CT Chest without IV Contrast D.O. [address] [place] [phone] Referral ID Status Reason Start Date Expiration Date Visits Requ ested Visits Authorized [id number] Closed 05/16/2020 05/16/2021 1 1 Encounter Details Date Type Department Care Team Description 05/16/2020 Hospital Encounter Department of Charmaine Alford Pleural Radiology in [place] D. O. [place] [address] [place] [phone] Social History Tobacco Use Types Packs/Day Years [...] have completed or the highest Martin, MEd, AS400 DEVELOPER, CAYDEN) degree you have received? Sex [...] by mouth tabletIndications: daily. 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 As directed per DR capsule rewezv-kwutarsm-tzxrzgc Take 1 capsule by 0 10/12/2020 (CREON) [...] as of this encounter Care Teams Credit Products Officer Relationship Specialty Start Date End Date Chris Billings M.B.B.S., M.D. PCP - General Family Medicine 01/10/20 05/21/[address] [place] [address] [place] [address] documented as of this encounter
--- OUTSIDE RECORDS SUMMARY | 2022-05-28 07:16 | XMS_ITS | Encounter Summary ---
:1945 Author Organization [facility] Address [address] [place] [address] Care Team Providers Name Role Phone Shayla Alford D.O. Primary Care Provider [phone] Reason for Visit Reason Comments [facility] Nurse Line Encounter Details Date Type Department Care Team Description 05/23/2020 Clinical Division of Ailyn Sims se Line Communication Pulmonary Medicine Pato Duque in [place], [address] [place] [address] [address] [facility] [address] [place], [place] [phone] (Work) [phone] Social History Tobacco Use Types Packs/Day Years [...] do you attend congregation or Never 2021 moravian services? Do you [...] or the highest Martin, MEd, DIRECTOR OF TAX SERVICES, CAYDEN) degree you have received? Sex Assigned at Date Recorded Male 05/21/2018 2:34 PM CDT documented as of this encounter Miscellaneous Notes Telephone Encounter - Zoë Yi Neto - 05/23/2020 10:28 AM CDT ([facility] and [facility] locations only: If the patient is not having symptoms and is requesting COVID-19 Nasal Swab testing only, use the process listed in the COVID-19 Patient Requesting COVID PCR Test OTG COVID-19 [place] Patient Requesting COVID PCR Test). 1. Do [...] de santiago appt office/vl Scheduling Contact Number: [phone] documented in this encounter Plan of Treatment Not on filedocumented as of this encounter Visit Diagnoses Not on filedocumented in this encounter Additional Health Concerns Assessment Noted Time PHQ-9 Depression Total Score: 18 04/28/2018 11:27 AM C DT documented as of this encounter Care Teams Division Supervisor Relationship Specialty Start Date End Date Shayla Alford D.O. PCP - General Internal Medicine 05/22/[address] [address] documented as of this encounter
--- OUTSIDE RECORDS SUMMARY | 2022-05-28 07:16 | XMS_ITS | Encounter Summary ---
:1945 Author Organization [facility] Address [address] [place] [address] Care Team Providers Name Role Phone Chris Billings M.D. Primary Care Provider [phone] Encounter Details Date Type Department Care Team Description 05/16/2020 Hospital Encounter Department of Bakkali-Derkse Anemia ; Laboratory Medicine n, Gianna Mcguire Chronic Systolic (Congestive) Heart Fail ure (HCC) in [place], [address] [place] [address] Social History Tobacco Use [...] have completed or the highest Martin, MEd, EMAIL CAMPAIGN SPECIALIST, CAYDEN) degree you have received? Sex [...] [facility]), Hypertension Essential Primary xgoiob-iipcqzui-rtuqfeo 2 capsules 3 (three) 0 10/12/2020 (CREON) times a day with 6,000-19,000-30,000 Unit meals. As directed per capsule ttojbp-idgtnawm-ufqmosr Take 1 capsule by 0 10/12/2020 (CREON) [...] eGFR-Black/Afri 34 (L) >=60 05/16/2020 OW[place] can [place] mL/min/BSA 3:37 PM CDT Comment: ----ADDITIONAL INFORMATION---- Estimated GFR calculated using the 2009 CKD_EPI creatinine equation. eGFR Non-Black/ 29 (L) >=60 mL/min/BSA 05/16/2020 3:37 PM CDT OWAT Mozambican Comment: ----ADDITIONAL INFORMATION---- [...] Organization Address City/State/ZIP Code Phon e Number [facility]- [address] [place] [address] [facility] [address] System in [place] [address] (ABNORMAL) CBC with Differential, Blood (05/16/2020 1:51 PM CDT) [facility] gist Method Time Signature Hemoglobin [...] City/State/ZIP Code Phon e Number [facility]- [address] [place] [address] [facility] [address] System in [place] [address] [facility] documented in this encounter Visit Diagnoses Diagnosis Anemia Chronic Systolic (Congestive) Heart Fail ure (HCC) documented in this encounter Additional Health Concerns Assessment Noted Time PHQ-9 Depression Total Score: 18 04/28/2018 11:27 AM C DT documented as of this encounter Care Teams Degree Clerk Relationship Specialty Start Date End Date Chris Billings M.B.BRhoda Walker. PCP - General Family Medicine 01/10/20 05/21/[address] [place] [address] [place] [phone] documented as of this encounter
--- OUTSIDE RECORDS SUMMARY | 2022-05-28 07:16 | XMS_ITS | Encounter Summary ---
:1945 Author Organization [facility] Address [address] [place] [address] Care Team Providers Name Role Phone Shayla Alford D.OMauro Primary Care Provider [phone] Reason for Visit Reason Comments Pulmonary Consult & tests Encounter Details Date Type Department Care Team Description 05/22/2020 Clinical Communication Department of Alexys Roberts [facility] Consult & Internal Medicine enShayla, tests in [facility] [address] [place] [address] Social History Tobacco Use [...] do you attend presybeterian or Never 2021 shinto services? Do you [...] have completed or the highest Martin, MEd, INTELLIGENCE OFFICER BASIC, CAYDEN) degree you have received? Sex Assigned at Date Recorded Male 05/21/2018 2:34 PM CDT documented as of this encounter Miscellaneous Notes Telephone Encounter - Coco Luque, CMauroMMauroAMauro - 05/23/2020 10:08 AM CDT Spoke to patient, he did not refuse to make an appt with pulmonary, he says he was [place] I Called over to [facility] and they are reinstating the order and [...] me back in follow-up in the clinic. [facility] scheduling, please do not cancel the referral. [...] may contactour Ancillary Testing Services back at [phone] and we will reinstate the order at that time. Sincerely, [facility] Ancillary Testing Services documented in this encounter Plan of Treatment Not on filedocumented as of this encounter Visit Diagnoses Not on filedocumented in this encounter Additional Health Concerns Infection Onset Date Last Indicated Resolved Time COVID19 Pending 06/09/2020 06/09/2020 06/09/2020 9:05 PM CDT Assessment Noted Time PHQ-9 Depression Total Score: 18 04/28/2018 11:27 AM C DT documented as of this encounter Care Teams Setter Molding And Coremaking Machines Relationship Specialty Start Date End Date Shayla Alford D.O. PCP - General Internal Medicine 05/22/[address] [address] documented as of this encounter
--- OUTSIDE RECORDS SUMMARY | 2022-05-28 07:16 | XMS_ITS | Encounter Summary ---
:1945 Author Organization [facility] Address [address] [place] [address] Care Team Providers Name Role Phone Shayla Alford D.O. Primary Care Provider [phone] Reason for Visit Reason Comments Care Coordination Intake Encounter Details Date Type Department Care Team Description 05/12/2020 Patient Outreach Department of Ronda Fernandez Family Medicine, A, R.N. (Intake) [facility], [address] [facility] in [facility] [address] [place] [address] [place], [place] (Work) [phone] Social History Tobacco Use [...] have completed or the highest Martin, MEd, DEPARTMENT SPECIALIST, CAYDEN) degree you have received? Sex [...] Use: Currently using the following community services: [place] services. Currently using the following devices/equipment: glucometer [...] our care team phone number and the [facility] dog food shredder operator phone number for off-hour contact with the physician cotton inspector). The patient was encouraged to report any [...] patient was encouraged to contact the RN Shell Fisherman or patient account services with any questions regarding the service. documented in this encounter Plan of Treatment Not on filedocumented as of this encounter Visit Diagnoses Not on filedocumented in this encounter Additional Health Concerns Assessment Noted Time PHQ-9 Depression Total Score: 18 04/28/2018 11:27 AM C DT documented as of this encounter Care Teams Aircraft Instrument Repairer Relationship Specialty Start Date End Date Shayla Alford D.O. PCP - General Internal Medicine 05/22/[address] [address] documented as of this encounter
--- OUTSIDE RECORDS SUMMARY | 2022-05-28 07:16 | XMS_ITS | Encounter Summary ---
:1945 Author Organization [facility] Address [address] [place] [address] Care Team Providers Name Role Phone Chris Billings M.D. Primary Care Provider [phone] Encounter Details Date Type Department Care Team Description 05/09/2020 Hospital Encounter Department of Shlomo Ojeda On Chronic 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); Laboratory Medicine C, PIPE WASHER, Chronic Kidney Disease Stage 3 Glomerular Filtration Rate 30 To 59 (HCC) in [facility] [address] [place] [phone] Social History Tobacco Use Types Packs/Day Years [...] do you attend gnosticism or Never 2021 jewish services? Do you [...] have completed or the highest Martin, MEd, EMT BASIC, CAYDEN) degree you have received? Sex [...] by mouth tabletIndications: daily. 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 As directed per DR capsule twulmj-udzmvqvv-xhtlvkm Take 1 capsule by 0 10/12/2020 (CREON) [...] Code Phon e Number [facility]- [address] [place] [address] [place] [address] System in [place] [address] (ABNORMAL) Creatinine with Estimated GFR (05/09/2020 10:15 AM CDT) Analysis Performed At [facility] Time Signature Creatinine 2.04 (H) 0.74 - 05/09/2020 OW[place] 1.35 mg/dL 11:03 AM CDT eGFR-Black/Afri 36 (L) >=60 05/09/2020 OW[place] can Spanish mL/min/BSA 11:03 AM CDT Comment: ----ADDITIONAL INFORMATION---- Estimated GFR calculated using the 2009 CKD_EPI creatinine equation. eGFR Non-Black/ 31 (L) >=60 mL/min/BSA 05/09/2020 11:03 AM CDT OWAT Spanish Comment: ----ADDITIONAL INFORMATION---- Estimated GFR calculated using the 2009 CKD_EPI creatinine equation. Specimen Anatomical Collection Method Collection Time Receive d Time (Source) Location / / Volume Laterality Blood (Blood, 05/09/2020 10:15 05/09/2020 Venous) AM CDT 10:17 AM CDT Shlomo Ojeda APRN, C.N.P. LAB BLOOD ADD-ON Performing Organization Address City/State/ZIP Code Phon e Number [facility]- [address] [place] [address] [place] [address] System in [place] [address] documented in this encounter [...] as of this encounter Care Teams Emergency Care Attendant Relationship Specialty Start Date End Date Chris Billings M.B.B.S., M.D. PCP - General Family Medicine 01/10/20 05/21/[address] [place] [address] [place] [address] documented as of this encounter
--- OUTSIDE RECORDS SUMMARY | 2022-05-28 07:16 | XMS_ITS | Encounter Summary ---
:1945 Author Organization [facility] Address [address] [place] [address] Care Team Providers Name Role Phone Chris Billings M.D. Primary Care Provider [phone] Encounter Details Date Type Department Care Team Description 05/18/2020 Hospital Encounter Department of Waldemar Poon Eff usion Pleural Radiology in M.[place]auro [place], [place] [address] [place], [place] [address] Social History Tobacco Use Types Packs/Day [...] do you attend amish or Never 2021 amish services? Do you [...] have completed or the highest Martin, MEd, IT BUSINESS PROCESS ARCHITECT, CAYDEN) degree you have received? Sex [...] by mouth tabletIndications: daily. 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 As directed per DR capsule bquhpo-qvrbnato-vrvnlat Take 1 capsule by 0 10/12/2020 (CREON) [...] documented as of this encounter Care Teams Beamer Hand Relationship Specialty Start Date End Date Chris Billings M.B.B.S., M.D. PCP - General Family Medicine 01/10/20 05/21/[address] [place] [address] [place] [address] documented as of this encounter
--- OUTSIDE RECORDS SUMMARY | 2022-05-28 07:16 | XMS_ITS | Encounter Summary ---
:1945 Author Organization [facility] Address [address] [place] [address] Care Team Providers Name Role Phone Chris Billings M.D. Primary Care Provider [phone] Reason for Visit Reason Comments Post Hospital Follow-up OR 05/06/20 @ 1707 Encounter Details Date Type Department Care Team Description 05/08/2020 Clinical Department of Ronda Fernandez Post Hospi ching Communication Family Medicine, A, R.N. Follow-up ([facility], [address] [facility] 05/06/20 @ 1707) in [facility] [phone] [place] [address] [place], [place] (Work) [phone] Social History Tobacco Use [...] do you attend rastafari or Never 2021 congregational services? Do you [...] have completed or the highest Martin, MEd, PELLET MACHINE OPERATOR, CAYDEN) degree you have received? [...] to a telephonic visit by the RN Manager Monitoring later this week. All questions answered. Telephone [...] they see those symptoms. 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 He is a [...] are currently paneled with a PCP in [place], but say it is very difficult to get in to see him or even talk to him on the phone. There is no openings for IM providers at [facility] in [place].They are hoping to establish with an IM provider in [place] as soon as they can get the provider at their upcoming [facility] to refer them. Follow-up Appointment [...] as of this encounter Care Teams Director Experimental Medicine Relationship Specialty Start Date End Date Chris Billings M.B.B.S., M.D. PCP - General Family Medicine 01/10/20 05/21/[address] [place] [address] documented as of this encounter
--- OUTSIDE RECORDS SUMMARY | 2022-05-28 07:16 | XMS_ITS | Encounter Summary ---
:1945 Author Organization [facility] Address [address] [place] [address] Care Team Providers Name Role Phone Shayla Alford D.OMauro Primary Care Provider [phone] Reason for Visit Reason Comments Pre-visit Testing Orders orders Encounter Details Date Type Department Care Team Description 05/17/2020 Clinical Communication Department of Alexys Pre -visit Testing Internal Medicine enShayla, Orders (or ders) in [place], D.[facility] [address] [place] [phone] Social History Tobacco Use Types Packs/Day [...] you attend roman catholic or Never 2021 anabaptist services? Do you [...] have completed or the highest Martin, MEd, CHILD CARE SUPERVISOR, CAYDEN) degree you have received? Sex Assigned at Date Recorded Male 05/21/2018 2:34 PM CDT documented as of this encounter Miscellaneous Notes Telephone Encounter - Shayla Alford D.O. - 05/19/2020 10:08 AM CDT I can't order a covid test .. there is no swab order available to us in [place] in the [employer] system.The physician needing the test can call a testing center and place a verbal order Telephone Encounter - Patria Lyles - 05/18/2020 4:00 PM CDT Good afternoon, [facility] requires covid testing to be done at a [facility] facility. We will need orders for covid testing. Thank you. Telephone Encounter - Shayla Alford D.O. - 05/18/2020 2:11 PM CDT Completed, COVID tests already done on [facility] and negative Telephone Encounter - Patria Lyles - 05/17/2020 11:35 AM CDT Good morning, You are referring patient to [facility]. There are pre requisite orders for testing that also need to be ordered. A Exhaled Nitric Oxide (oral), Pulmonary Function test, and a Rhinoscopy, and covid swab tests. Please order for [facility]. Thank you. documented in this encounter Plan of Treatment Not on filedocumented as of this encounter Visit Diagnoses Not on filedocumented in this encounter Additional Health Concerns Assessment Noted Time PHQ-9 Depression Total Score: 18 04/28/2018 11:27 AM C DT documented as of this encounter Care Teams Machine Stemmer Relationship Specialty Start Date End Date Shayla Alford D.O. PCP - General Internal Medicine 05/22/20 [address] [place] [address] documented as of this encounter
--- OUTSIDE RECORDS SUMMARY | 2022-05-28 07:16 | XMS_ITS | Encounter Summary ---
:1945 Author Organization [facility] Address [address] [place] [address] Care Team Providers Name Role Phone Shayla Alford D.O. Primary Care Provider [phone] Reason for Visit Reason Comments Post Hospital Follow-up Appointment Request (Routine) - Closed Specialty Diagnoses / Procedures Referred By Contact Refer red To Contact Family Medicine Referral ID Status Reason Start Date Expiration Date Visits Requ ested Visits Authorized [id number] Closed 05/18/2020 05/18/2021 1 1 Encounter Details Date Type Department Care Team Description 05/25/2020 Office Visit Department of [facility] Sarath Da Silva O n Chronic Systolic (Congestive) Heart Failure (HCC) (Primary Dx); Medicine, [place] Ojeda M.D. Failure Heart (HCC); Clinic, in [place], [facility] [address] Hypertension Essential Primary; [place], [place] Beat Premature Ventricular; [address] [address] Asthma Extrinsic Moderate (HCC) [place], [place] [phone] [address] (Work) [phone] Social History Tobacco Use Types Packs/Day Years [...] do you attend anglican or Never 2021 congregation services? Do you [...] recent hospitalizations. Patient was initially admitted to [address] on April 28 2020. He had significant fluid overload. He was treated with furosemide diuresis and he improved. He was dismissed on an increased dose of furosemide. It was felt that he would improve in the outpatient environment. He declined further with increased weight and increased dyspnea. He was admitted to [facility] in [place] on May 03. During that hospitalization he [...] 103 kilos. He was subsequently admitted to [facility] and had aggressive diuresis with torsemide. He [...] CBC without Differential (05/25/2020 10:42 AM CDT) [facility] gist Method Time Signature Hemoglobin 10.3 [...] [facility]- [address] [place] [address] [facility] [place] [address] System in [place] [address] (ABNORMAL) Basic Metabolic Panel [...] eGFR-Black/Afri 34 (L) >=60 05/25/2020 [facility] can [place] mL/min/BSA 1:16 PM CDT Comment: ----ADDITIONAL INFORMATION---- Estimated GFR calculated using the 2009 CKD_EPI creatinine equation. eGFR Non-Black/ 29 (L) >=60 mL/min/BSA 05/25/2020 1:16 PM CDT [facility] [place] Comment: ----ADDITIONAL INFORMATION---- Estimated GFR calculated using [...] e Number [facility]- [address] [place] [address] [place] [address] System in [place] [address] documented in this encounter Visit Diagnoses Diagnosis Acute On Chronic Systolic (Congestive) H eart Failure (HCC) - Primary Failure Heart (HCC) Hypertension Essential Primary Beat Premature Ventricular Asthma Extrinsic Moderate (HCC) documented in this encounter Additional Health Concerns Assessment Noted Time PHQ-9 Depression Total Score: 18 04/28/2018 11:27 AM C DT documented as of this encounter Care Teams Residential Real Estate Sales Manager Relationship Specialty Start Date End Date Shayla Alfodr D.O. PCP - General Internal Medicine 05/22/[address] [place] [phone] documented as of this encounter
--- OUTSIDE RECORDS SUMMARY | 2022-05-28 07:16 | XMS_ITS | Encounter Summary ---
:1945 Author Organization [facility] Address [address] [place] [address] Care Team Providers Name Role Phone Chris Billings M.D. Primary Care Provider [phone] Reason for Referral Outpatient (Routine) - Closed Specialty Diagnoses / Procedures Referred By Contact Refer red To Contact Pulmonary Medicine Diagnoses Asthma Extrinsic Moderate (HCC) Chronic Systolic (Congestive) Heart Failure (HCC) Effusion Pleural Dyspnea [facility]ifactorial [facility] Shayla D.Sabrina [address] [place] [phone] Referral ID Status Reason Start Date Expiration Date Visits V isits Requested Authorized [id number] Closed Specialty 05/16/2020 05/16/2021 1 1 Services Required MRI/CAT/PET Scan (Routine) - Closed Specialty Diagnoses / Procedures Referred By Contact Refer red To Contact Radiology Diagnoses Effusion Pleural Shayla Alford [facility] Region Procedures CT Chest without IV Contrast D.O. [address] [place] [phone] Referral ID Status Reason Start Date Expiration Date Visits Requ ested Visits Authorized [id number] Closed 05/16/2020 05/16/2021 1 1 Outpatient (Routine) - Closed Specialty Diagnoses / Referred By Contact Referred To Contact Procedures Cardiovascular Diseases / Diagnoses Chronic Systolic (Congestive) Heart Failure (HCC) Enmanuel Alford [facility] Cardiovascular Disease Tulio Mcguire [address] [place] [address] Referral ID Status Reason Start Date Expiration Date Visits Requ ested Visits Authorized [id number] Closed 05/16/2020 05/16/2021 1 1 Reason for Visit Reason Comments Post Hospital Follow-up Shortness of Breath Fatigue Blood sugar Discuss Other Balance issues Sleeping Problem Terrrible flucuations with s leecorazon Appointment Request (Routine) - Closed Specialty Diagnoses / Procedures Referred By Contact Refer red To Contact Family Medicine Referral ID Status Reason Start Date Expiration Date Visits Requ ested Visits Authorized [id number] Closed 05/05/2020 05/05/2021 1 1 Encounter Details Date Type Department Care Team Description 05/16/2020 Office Visit Department of [place] Dyspnea Mul tifactorial (Primary Dx); Internal Medicine in , Gianna Mcgiure Asthma Extrinsic Moderate (HCC); [place], [place] [address] Chronic Systolic (Congestive) Heart Fail ure (HCC); [address] [place], [place] Effusion Pleural; [place] [address] [place] [address] Social History Tobacco Use Types [...] do you attend buddhism or Never 2021 faith services? Do you belong to any clubs or No 10/09/2021 organizations such as buddhism groups, unions, fraCapiota or athletic groups, or school groups? How [...] completed or the highest Martin, MEd, DIRECTOR E LEARNING, CAYDEN) degree you have received? Sex Assigned [...] problems. The patient use [facility] in [place], and has not been seen by myself [...] problems. The patient use early doctors in [place], and has not been seen by myself [...] 0 05/16/2020 consult (clinic) Failure ([facility]) (Approxima te), Expires: 05/16/2023 Pulmonary Medicine - Outpatient Routine Asthma Extrinsic Exp ected: General consult Referral Moderate ([facility]) 05/17/2020, (clinic) Chronic Systolic Expires: (Congestive) Heart 3 Failure ([facility]) Effusion Pleural Dyspnea Multifactorial documented as of [...] Signature VC MAX PRE 4.67 L 06/15/2020 [facility] 9:12 AM CDT SUITE FVC 4.67 L 06/15/2020 [facility] 9:12 AM CDT SUITE FEV1 3.31 L 06/15/2020 [facility] 9:12 AM CDT SUITE FEV1/FVC 70.90 % 06/15/2020 [facility] 9:12 AM CDT SUITE SEV67-08% 2.26 L/s 06/15/2020 [facility] 9:12 AM CDT SUITE PEF PRE 7.72 L/s 06/15/2020 [facility] 9:12 AM CDT SUITE FET PRE 7.95 sec 06/15/2020 [facility] 9:12 AM CDT SUITE DLCO 14.95 ml/(min*mm 06/15/2020 [facility] Hg) 9:12 AM CDT SUITE DLCOc 17.52 ml/(min*mm 06/15/2020 [facility] Hg) 9:12 AM CDT SUITE HB 10.30 g(Hb)/dL 06/15/2020 [facility] 9:12 AM CDT SUITE VA 7.30 L 06/15/2020 [facility] 9:12 AM CDT SUITE L1TjcDrxl 98.00 % 06/15/2020 [facility] 9:12 AM CDT SUITE PulseRest 42.00 1/min 06/15/2020 [facility] 9:12 AM CDT SUITE H6CcoZmam 97.00 % 06/15/2020 [facility] 9:12 AM CDT SUITE PulseExer 61.00 [...] AM CDT SUITE FEV1% 99.73 % 06/15/2020 [facility] 9:12 AM CDT SUITE % PRED 95.24 % 06/15/2020 [facility] FEV1/FVC 9:12 AM CDT SUITE % PRED FEF 97.12 % 06/15/2020 [facility] 25-75% 9:12 AM CDT SUITE % PRED PEF 86.66 % 06/15/2020 [facility] 9:12 AM CDT SUITE PRED VC MAX 4.50 L 06/15/2020 [facility] 9:12 AM CDT SUITE PRED FVC 4.50 L 06/15/2020 [facility] 9:12 AM CDT SUITE PRED FEV 1 3.32 L 06/15/2020 [facility] 9:12 AM CDT SUITE PRED FEV1/FVC 74.44 % 06/15/2020 [facility] 9:12 AM CDT SUITE PRED FEF 2.33 L/s 06/15/2020 [facility] 25-75% 9:12 AM CDT SUITE PRED PEF 8.91 L/s 06/15/2020 [facility] 9:12 AM CDT SUITE Specimen (Source) Anatomical Collection Method Collection Time Re ceived Time Location / / Volume Laterality 06/14/2020 1:25 PM CDT Narrative This result has an attachment that is no t available. Shayla Alford D.O. PFT ORDERABLES Performing Organization Address City/State/ZIP Code Phon e Number [facility] NA (ABNORMAL) CBC with Differential, Blood (05/16/2020 1:51 PM CDT) [facility] gist Method Time Signature Hemoglobin 10.2 [...] e Number [facility]- [address] [address] [place] [address] System in [place] [address] [facility] (ABNORMAL) Basic Metabolic Panel (05/16/2020 [...] eGFR-Black/Afri 34 (L) >=60 05/16/2020 [facility] can [place] mL/min/BSA 3:37 PM CDT Comment: ----ADDITIONAL INFORMATION---- Estimated GFR calculated using the 2009 CKD_EPI creatinine equation. eGFR Non-Black/ 29 (L) >=60 mL/min/BSA 05/16/2020 3:37 PM CDT [facility] [place] Comment: ----ADDITIONAL INFORMATION---- Estimated GFR [...] e Number [facility]- [address] [place] [address] [place] [address] System in [place] [address] Chest without IV [...] of this encounter Care Teams Head Of Strategy Relationship Specialty Start Date End Date Chris Billings M.B.B.S., M.D. PCP - General Family Medicine 01/10/20 05/21/20 [facility] [address] [place] [phone] documented as of this encounter
--- OUTSIDE RECORDS SUMMARY | 2022-05-28 07:16 | XMS_ITS | Encounter Summary ---
:1945 Author Organization [facility] Address [address] [place] [address] Care Team Providers Name Role Phone Shayla Alford D.O. Primary Care Provider [phone] Reason for Visit Reason Comments Pre-visit Testing Orders Encounter Details Date Type Department Care Team Description 05/17/2020 Clinical Department of Cristina Pre-visit Test ing Communication Cardiovascular Manuel Barber, Orders Medicine in [place], [place] [address] [facility] [address] [place] [address] [phone] Social History Tobacco Use Types Packs/Day Years [...] have completed or the highest Martin, MEd, DESPATCH CLERK, CAYDEN) degree you have received? Sex [...] This patient is being referred from [facility] and was recently hospitalized last week. [...] documented as of this encounter Care Teams Army Senior Officer Relationship Specialty Start Date End Date Shayla Alford D.O. PCP - General Internal Medicine 05/22/[address] [address] documented as of this encounter
--- OUTSIDE RECORDS SUMMARY | 2022-05-28 07:16 | XMS_ITS | Encounter Summary ---
:1945 Author Organization [facility] Address [address] [place] [address] Care Team Providers Name Role Phone Shayla Alford D.O. Primary Care Provider [phone] Encounter Details Date Type Department Care Team Description 05/24/2020 Episode Changes Department of [facility] Ronda Fernandez Medicine, [facility], R.NMauro in [place], [place] [address] [facility] [address] [place] [address] [phone] Social History Tobacco Use Types Packs/Day Years [...] do you attend catholic or Never 2021 jainism services? Do you [...] have completed or the highest Martin, Sirena, TRANSONIC ENGINEER, CAYDEN) degree you have received? Sex Assigned at Date Recorded Male 05/21/2018 2:34 PM CDT documented as of this encounter Plan of Treatment Not on filedocumented as of this encounter Visit Diagnoses Not on filedocumented in this encounter Additional Health Concerns Assessment Noted Time PHQ-9 Depression Total Score: 18 04/28/2018 11:27 AM C DT documented as of this encounter Care Teams Machine Fitter Relationship Specialty Start Date End Date Shayla Alford D.O. PCP - General Internal Medicine 05/22/[address] [phone] documented as of this encounter
--- OUTSIDE RECORDS SUMMARY | 2022-05-28 07:16 | XMS_ITS | Encounter Summary ---
:1945 Author Organization [facility] Address [address] [place] [address] Care Team Providers Name Role Phone Shayla Alford D.O. Primary Care Provider [phone] Encounter Details Date Type Department Care Team Description 05/25/2020 Hospital Encounter Department of Prateek Da Silva Essential Primary; Laboratory Medicine Pato Ojeda Failure Heart (HCC) in [place], [address] JAMIE Dixon [place], [place] [address] [address] [place], [place] [phone] [address] (Work) [phone] Social History Tobacco Use Types Packs/Day Years [...] do you attend gnosticist or Never 2021 alevism services? Do you [...] have completed or the highest Martin, MEd, CANVAS REPAIRER, CAYDEN) degree you have received? Sex [...] by mouth tabletIndications: daily. 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 As directed per DR capsule fvqqfo-gjycrhme-wcktdpi Take 1 capsule by 0 10/12/2020 (CREON) mouth as needed for 6,000-19,000-30,[address] capsule eudcha-kqmgroxk-bggsemj Take 1 capsule by 0 10/12/2020 (bgosgy-ukwbmqyy-mqpcfvb) mouth 3 (three) 6,000-19,000-30,000 Unit times a [...] CBC without Differential (05/25/2020 10:42 AM CDT) [facility] gist Method Time Signature Hemoglobin 10.3 [...] e Number [facility]- [address] [place] [address] [facility] [address] [place] [address] System in [place] [address] (ABNORMAL) Basic Metabolic Panel [...] eGFR-Black/Afri 34 (L) >=60 05/25/2020 [facility] can [place] mL/min/BSA 1:16 PM CDT Comment: ----ADDITIONAL INFORMATION---- Estimated GFR calculated using the 2009 CKD_EPI creatinine equation. eGFR Non-Black/ 29 (L) >=60 mL/min/BSA 05/25/2020 1:16 PM CDT [facility] [place] Comment: ----ADDITIONAL INFORMATION---- Estimated GFR calculated using [...] Code Phon e Number [facility]- [address] [place] [address] [place] [address] System in [place] [address] documented in this encounter Visit Diagnoses Diagnosis Hypertension Essential Primary Failure Heart (HCC) documented in this encounter Additional Health Concerns Assessment Noted Time PHQ-9 Depression Total Score: 18 04/28/2018 11:27 AM C DT documented as of this encounter Care Teams Sole Leveler Machine Relationship Specialty Start Date End Date Shayla Alford D.O. PCP - General Internal Medicine [address] [place] [address] documented as of this encounter
--- OUTSIDE RECORDS SUMMARY | 2022-05-28 07:16 | XMS_ITS | Encounter Summary ---
:1945 Author Organization [facility] Address [address] [place] [address] Care Team Providers Name Role Phone Chris Billings M.D. Primary Care Provider [phone] Reason for Visit Reason Comments Post Hospital Follow-up Encounter Details Date Type Department Care Team Description 05/18/2020 Clinical Communication Department of Manuelito [facility] Family MedicineChris I., [facility]-up [facility] in [address] [address] [place], [place] [phone] [phone] (Work) [phone] Social History Tobacco Use Types Packs/Day Years [...] do you attend latter-day or Never 2021 uatsdin services? Do you [...] completed or the highest Martin, MEd, BEVELING MACHINE OPERATOR, CAYDEN) degree you have received? [...] failure Appt 05/[address] Da Silva *Shovel Operator is in [facility] documented in this encounter Plan of Treatment Not on filedocumented as of this encounter Visit Diagnoses Not on filedocumented in this encounter Additional Health Concerns Assessment Noted Time PHQ-9 Depression Total Score: 18 04/28/2018 11:27 AM C DT documented as of this encounter Care Teams Developmental Mathematics Instructor Relationship Specialty Start Date End Date Chris Billings M.B.B.S., M.D. PCP - General Family Medicine 01/10/20 05/21/[address] [place] [address] [place] [phone] documented as of this encounter
--- OUTSIDE RECORDS SUMMARY | 2022-05-28 07:17 | XMS_ITS | Encounter Summary ---
:1945 Author Organization [facility] Address [address] [place] [address] Care Team Providers Name Role Phone Chris Billings M.D. Primary Care Provider [phone] Encounter Details Date Type Department Care Team Description 04/20/2020 Clinical Communication Department of Rachael Mendez Cardiovascular Diseases R.NMauro in [facility] [address] [facility] [address] [place] [phone] Social History Tobacco Use Types [...] do you attend denominational or Never 2021 buddhism services? Do you [...] completed or the highest Martin, MEd, DRY SANDER, CAYDEN) degree you have received? Sex Assigned at Date Recorded Male 05/21/2018 2:34 PM CDT documented as of this encounter Miscellaneous Notes Telephone Encounter - Rachael Mendez R.N. - 04/20/2020 8:34 AM CDT Name of person contacted: Patient Relationship to patient: Not applicable Call back number: N/A Hide House Supervisor: Not applicable Information provided: Reviewed Dr. Bañuelos's note with patient. mailroom personnel/patient received and understood education/information provided: Yes mailroom personnel/patient agreed to the Plan of Care: [...] documented as of this encounter Care Teams Reforestation Worker Relationship Specialty Start Date End Date Chris Billings M.B.B.S., M.D. PCP - General Family Medicine 01/10/20 05/21/[address] [place] [address] [place] [phone] documented as of this encounter
--- OUTSIDE RECORDS SUMMARY | 2022-05-28 07:17 | XMS_ITS | Encounter Summary ---
:1945 Author Organization [facility] Address [address] [place] [address] Care Team Providers Name Role Phone Chris Billings M.D. Primary Care Provider [phone] Encounter Details Date Type Department Care Team Description 05/03/2020 Clinical Communication Department of Lulu Huang Cardiovascular Diseases Tae, RJustina in [facility] [address] [place] [phone] Social History Tobacco Use Types Packs/Day Years [...] do you attend mormon or Never 2021 moravian services? Do you [...] have completed or the highest Martin, MEd, FINISHER COLD ROLLING, CAYDEN) degree you have received? Sex Assigned at Date Recorded Male 05/21/2018 2:34 PM CDT documented as of this encounter Miscellaneous Notes Telephone Encounter - Lulu Huang R.N. - 05/03/2020 11:04 AM CDT Name of person contacted: Diallo Relationship to patient: MATTHEW on file Call back number: [phone] Solutions Architect: Not applicable Information provided: Communication note 05/03/20 10:58 am Shlomo Ojeda CNP. Patient's in agreement with plan as outlined per Shlomo. sporting goods salesperson/patient received and understood education/information provided: Yes sporting goods salesperson/patient agreed to the Plan of Care: Yes Telephone Encounter - Shlomo Ojeda APRN, C.N.P. - 05/03/2020 10:54 AM CDT His renal function alone is not a reason to be directly admitted to the hospital (his renal functionis basically the same as the day he was dismissed from the hospital [place]), but his weight gain and worsening oxygenation numbers are. He would need to go through the emergency room for consideration of admission. If his oxygenation numbers are above 90% currently, I think it is safe for him to bedriven to [facility] in [place]. If his oxygen numbers are below 90% he should goto the closest emergency room. Telephone Encounter - Lulu Huang R.N. - 05/03/2020 9:36 AM CDT ASSESSMENT Patient's , Diallo (MATTHEW on-file), transferred from call center with concern regarding patient. Diallo is requesting for Jonnathan to be admitted to [place] for possible kidney failure. She stated her [...] and stated she will drive him to [facility] for evaluation. PLAN Follow-up with emergency department, , Diallo, will transport patient. Disposition/Recommendation: recommended to report to the nearest emergency department. Information/Education: patient/caller able to teach back. Preference for [facility]. Caller agreeable to plan of care: [...] as of this encounter Care Teams Line Person Relationship Specialty Start Date End Date Chris Billings M.B.B.S. MDahlia. PCP - General Family Medicine 01/10/20 05/21/[address] [place] [address] [place], [place] [phone] documented as of this encounter
--- OUTSIDE RECORDS SUMMARY | 2022-05-28 07:17 | XMS_ITS | Encounter Summary ---
:1945 Author Organization [facility] Address [address] [place] [address] Care Team Providers Name Role Phone Chris Billings M.D. 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 Do you [...] have completed or the highest Martin, MEd, CORD SPLICER, CAYDEN) degree you have received? Sex [...] ILEANA 14 DAY READER) [facility] flash glucose sensor Use [...] [facility]), Hypertension Essential Primary lisinopriL Take 1 [...] Ph.D. LAB BLOOD ADD-ON Performing Organization Address City/[facility]/ZIP Code Phon e Number [facility] - [address] [place], [place] [address] [place] [address] Laboratories-[facility] [address] C-Peptide (04/12/2020 8:14 AM CDT) athologist Signature C-Peptide, S 3.1 1.1 - 4.4 04/13/2020 SDS ng/mL 8:56 AM CDT Specimen Anatomical Collection Method Collection Time Receive d Time (Source) Location / / Volume Laterality Blood (Blood, 04/12/2020 8:14 AM 04/13/20 20 8:20 Venous) CDT AM CDT Authorizing Provider Result Deloris Kendall M.D., Ph.D. LAB BLOOD ADD-ON Performing Organization Address City/[facility]/ZIP Code Phon e Number [facility] [address] [place], [place] [address] [facility] [place] [address] Laboratory Medicine and Pathology [address] [...] City/State/ZIP Code Phon e Number [facility] [address], [place] [address] [place] [address] System in [place] [address] [place] [address] Sodium (04/12/2020 8:14 AM CDT) athologist Signature [...] Code Phon e Number [facility] [address] [place] [address] [place] [address] System in [place] [address] (ABNORMAL) CBC without Differential (04/12/2020 [...] Code Phon e Number [facility] [address] [place] [address] [place] [address] System in [place] [address] [facility] (ABNORMAL) Lipid Panel (04/12/2020 8:14 AM CDT) [...] Phon e Number [facility] [address] [place] [address] [place] [facility] [place] [address] System in [place] [address] ALT (Alanine Aminotransferase) (04/12/2020 8:14 AM CDT) [facility] gist Method Time Signature Alanine 16 7 - 55 04/12/2020 [place] Aminotransferase U/L 9:08 AM CDT (ALT), P Specimen Anatomical Collection Method Collection Time Receive d Time (Source) Location / / Volume Laterality Blood (Blood, 04/12/2020 8:14 AM 04/12/20 20 8:31 Venous) CDT AM CDT Authorizing Provider Result Deloris Kendall M.D., Ph.D. LAB BLOOD ADD-ON Performing Organization Address City/[facility]/ZIP Code Phon e Number [facility] [address] [place] [address] [place] [facility] [place] [address] System in [place] [address] AST (Aspartate Aminotransferase) (04/12/2020 8:14 AM CDT) [facility] [employer] Method Time Signature Aspartate 17 8 - 48 04/12/2020 [place] Aminotransferase U/L 9:08 AM CDT (AST), P Specimen Anatomical Collection Method Collection Time Receive d Time (Source) Location / / Volume Laterality Blood (Blood, 04/12/2020 8:14 AM 04/12/20 20 8:31 Venous) CDT AM CDT Carlos Kendall M.D., Ph.D. LAB BLOOD ADD-ON Performing Organization Address City/State/ZIP Code Phon e Number [facility] [address] [place] [address] [place] [address] System in [place] [address] [facility] (ABNORMAL) Creatinine with Estimated GFR (04/12/2020 8:14 AM CDT) Analysis Performed At Patho logis Time Signature Creatinine 1.42 (H) 0.74 - 04/12/2020 [place] 1.35 mg/dL 9:08 AM CDT eGFR-Black/Afri 55 (L) >=60 04/12/2020 [place] can [place] mL/min/BSA 9:08 AM CDT Comment: ----ADDITIONAL INFORMATION---- Estimated GFR calculated using the 2009 CKD_EPI creatinine equation. eGFR Non-Black/ 48 (L) >=60 mL/min/BSA 04/12/2020 9:08 AM CDT [place] Comment: ----ADDITIONAL INFORMATION---- Estimated GFR calculated using the 2009 CKD_EPI creatinine equation. Specimen Anatomical Collection Method Collection Time Receive d Time (Source) Location / / Volume Laterality Blood (Blood, 04/12/2020 8:14 AM 04/12/20 8:31 Venous) CDT AM CDT K Randy Kendall M.D., Ph.D. LAB BLOOD ADD-ON Performing Organization Address City/State/ZIP Code Phon e Number [facility] [address] [place] [address] [place] [address] System in [place] [address] [facility] (ABNORMAL) Hemoglobin A1c (04/12/2020 8:14 AM CDT) Analysis [facility] Time Signature Hemoglobin A1c, 10.3 (H) [...] Code Phon e Number [facility] [address] [place] [address] [place] [facility] [place] [address] System in [place] [address] (ABNORMAL) Glucose, Fasting [...] Phon e Number [facility] [address] [place] [address] [place] [address] System in [place] [address] T4 (Thyroxine), Total Only (04/12/2020 [...] [facility] - [address] [place], [place] [address] 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 PCP - General Family Medicine 01/10/20 05/21/20 [address] [facility] [place] [address] documented as of this encounter
--- OUTSIDE RECORDS SUMMARY | 2022-05-28 07:17 | XMS_ITS | Encounter Summary ---
:1945 Author Organization [facility] Address [address] [place] [address] Care Team Providers Name Role Phone Chris Billings M.D. Primary Care Provider +1 [phone] Encounter Details Date Type Department Care Team Description 04/12/2020 Documentation Division of Gastroenterology Ran Vilchis in [facility] [address] [facility] [address] [place] [phone] Social History Tobacco Use Types Packs/Day Years [...] have completed or the highest Martin, MEd, LOADER MACHINE, CAYDEN) degree you have received? Sex [...] of this encounter Care Teams Public Health Informatician Relationship Specialty Start Date End Date Chris Billings M.B.B.S., M.D. PCP - General Family Medicine 01/10/20 05/21/[address] [place] [phone] documented as of this encounter
--- OUTSIDE RECORDS SUMMARY | 2022-05-28 07:17 | XMS_ITS | Encounter Summary ---
:1945 Author Organization [facility] Address [address] [place] [address] Care Team Providers Name Role Phone Chris Billings M.D. 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 [facility] [place] [facility] Procedures Echo Transthoracic (TTE) [address] [place] [address] Referral ID Status Reason Start Date Expiration Date Visits Requ ested Visits Authorized [id number] Closed 01/20/2020 01/19/2021 1 1 Encounter Details Date Type Department Care Team Description 04/17/2020 Hospital Department of Arsenio Bañuelos Heart Encounter Cardiovascular Koko Champagne M.D. Disease [place] Diseases in [place], [facility] [address] Coronary Artery With [place], [place] Other Forms Angina [address] [address] Pectoris (Angina KOBI PATEL [phone] Equivalent) (HC C) [phone] (Work) [phone] Social History Tobacco Use Types Packs/Day Years [...] do you attend gnosticist or Never 2021 zoroastrian services? Do you [...] completed or the highest Martin, MEd, PRODUCE BUYER, CAYDEN) degree you have received? Sex Assigned [...] unit/mL under the skin at injection bedtime. pruhdf-pgjonhqt-ehowyov 2 capsules 3 (three) 0 10/12/2020 (CREON) [...] 05/01/2020 reader (FREESTYLE ILEANA 14 DAY READER) [facility] flash glucose sensor Use as [...] by mouth tabletIndications: daily. 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 Equivalent) (HCC) documented in this encounter Results (TTE) 2D ECHO DOPPLER COLOR (04/17/2020 10:06 AM CDT) [facility] Method Time Signature Ejection Fraction 42 [...] effusion. For the complete report, see the [employer] Documents. Narrative 04/17/2020 1:23 PM CDT For the complete report, see the [employer] Documents. Final Impressions 1. Mildly enlarged left [...] For the complete report, see the [employer] Documents. Final Impressions 1. Mildly enlarged left [...] encounter Visit Diagnoses Diagnosis Atherosclerotic Heart Disease [place] Cor onary Artery With Other Forms Angina Pectoris (Angina Equivalent) (HCC) documented in this encounter Additional Health Concerns Assessment Noted Time PHQ-9 Depression Total Score: 18 04/28/2018 11:27 AM C DT documented as of this encounter Care Teams Ad Taker Relationship Specialty Start Date End Date Chris Billings M.B.B.S., M.D. PCP - General Family Medicine 01/10/20 05/21/[address] [place] [address] [place] [address] documented as of this encounter
--- OUTSIDE RECORDS SUMMARY | 2022-05-28 07:17 | XMS_ITS | Encounter Summary ---
:1945 Author Organization [facility] Address [address] [place] [address] Care Team Providers Name Role Phone Chris Billings M.D. Primary Care Provider [phone] Reason for Visit Reason Comments Follow-up Outpatient (Routine) - Closed Specialty Diagnoses / Procedures Referred By Contact Refer red To Contact Endocrinology Carlos Kendall M.D., [facility] Ph.D. [address] [place] [address] Referral ID Status Reason Start Date Expiration Date Visits Requ ested Visits Authorized [id number] Closed 03/17/2020 03/17/2021 1 1 Encounter Details Date Type Department Care Team Description 04/13/2020 Office Visit Division of Carlos Kendall [facility] Type Endocrinology in Randy, (HCC) (Pr imary Dx) [place], [place] Pato, Ph.D. 200 [facility] 200 [place] [address] [place], [place] [phone] Social History Tobacco Use Types Packs/Day [...] completed or the highest Martin, MEd, MANAGER SOCIAL, CAYDEN) degree you have received? Sex Assigned [...] strongly encouraged him to connect with the clinical nurse educator if he has any doubt about adjusting insulin dose. In general I thought his glargine dose can be reduced to 20 or even below because his pre bedtime glucose is usually high the 200-50 region. He also gets hypoglycemia usually during this teaseler time. He can reduce glargine dose to [...] the cost high glucose. He takes the 610627 units of Lantus in the night and [...] strongly encouraged him to connect with the clinical nurse educator if he has any doubt about adjusting insulin dose. In general I thought his glargine dose can be reduced to 20 or even below because his pre bedtime glucose is usually high the 200-50 region. He also gets hypoglycemia usually during this teaseler time. He can reduce glargine dose to [...] documented as of this encounter Care Teams Photographic Laboratory Supervisor Relationship Specialty Start Date End Date Chris Billings M.B.B.S., M.D. PCP - General Family Medicine 01/10/20 05/21/[address] [place] [address] [place] [phone] documented as of this encounter
--- OUTSIDE RECORDS SUMMARY | 2022-05-28 07:17 | XMS_ITS | Encounter Summary ---
:1945 Author Organization [facility] Address [address] [place] [address] Care Team Providers Name Role Phone Chris Billings M.D. Primary Care Provider [phone] Encounter Details Date Type Department Care Team Description 04/04/2020 Orders Only Division of Ran Eduardo Clinical Research Gastroenterology in [address] [facility] W Exam (Primary Dx) [place], [place] [address] [facility] [address] [place] [address] [phone] Social History Tobacco Use Types Packs/Day Years [...] have completed or the highest Martin, MEd, POWDERED SUGAR SUPERVISOR, CAYDEN) degree you have received? Sex [...] - General Family Medicine 01/10/20 05/21/[address] [place] [address] [place] [address] documented as of this encounter
--- OUTSIDE RECORDS SUMMARY | 2022-05-28 07:17 | XMS_ITS | Encounter Summary ---
:1945 Author Organization [facility] Address [address] [place] [address] Care Team Providers Name Role Phone Chris Billings M.D. Primary Care Provider [phone] Encounter Details Date Type Department Care Team Description 05/02/2020 Clinical Communication Department of Internal Shlomo Ojeda, Medicine in [facility] [address] [place] [phone] Social History Tobacco Use Types Packs/Day Years [...] do you attend faith or Never 2021 scientology services? Do you [...] completed or the highest Martin, MEd, MANAGER FIXED INCOME, CAYDEN) degree you have received? Sex Assigned at Date Recorded Male 05/21/2018 2:34 PM CDT documented as of this encounter Miscellaneous Notes Telephone Encounter - Kira Sorenson M - 05/02/2020 1:50 PM CDT ([facility] and [facility] locations only: If the patient is not having symptoms and is requesting COVID-19 Nasal Swab testing only, use the process listed in the COVID-19 Patient Requesting COVID PCR Test OTG COVID-19 [place] Patient Requesting COVID PCR Test). 1. Do [...] no Route reply to: Scheduling Contact Number: [phone] documented in this encounter Plan of Treatment Not on filedocumented as of this encounter Visit Diagnoses Not on filedocumented in this encounter Additional Health Concerns Assessment Noted Time PHQ-9 Depression Total Score: 18 04/28/2018 11:27 AM C DT documented as of this encounter Care Teams Search Marketing Specialist Relationship Specialty Start Date End Date Chris Billings M.B.B.S., M.D. PCP - General Family Medicine 01/10/20 05/21/[address] [place] [address] [place] [phone] documented as of this encounter
--- OUTSIDE RECORDS SUMMARY | 2022-05-28 07:17 | XMS_ITS | Encounter Summary ---
:[address] [facility] Address [address] [place] [address] Care Team Providers Name Role Phone Chris Billings M.D. Primary Care Provider [phone] Encounter Details Date Type Department Care Team Description 04/13/2020 Documentation Division of Gastroenterology Ran Vilchis in [facility] [address] [facility] [address] [place] [phone] Social History Tobacco Use Types Packs/Day Years [...] do you attend jewish or Never 2021 baptism services? Do you [...] completed or the highest Martin, MEd, AUTOMOTIVE SERVICE ASSISTANT, CAYDEN) degree you have received? Sex Assigned at Date Recorded Male 05/21/2018 2:34 PM CDT documented as of this encounter Plan of Treatment Not on filedocumented as of this encounter Visit Diagnoses Not on filedocumented in this encounter Additional Health Concerns Assessment Noted Time PHQ-9 Depression Total Score: 18 04/28/2018 11:27 AM C DT documented as of this encounter Care Teams Owner Manager Relationship Specialty Start Date End Date Chris Billings M.B.B.S., M.D. PCP - General Family Medicine 01/10/20 05/21/[address] [place] [phone] documented as of this encounter
--- OUTSIDE RECORDS SUMMARY | 2022-05-28 07:17 | XMS_ITS | Encounter Summary ---
:1945 Author Organization [facility] Address [address] [place] [address] Care Team Providers Name Role Phone Chris Billings M.D. Primary Care Provider [phone] Reason for Referral Outpatient (Routine) - Closed Specialty Diagnoses / Procedures Referred By Contact Refer red To Contact Diagnoses Bradycardia Shlomo Ojeda APRN, [facility] [place] Procedures ECG Heart rhythm monitor (Holter) C.N.P. [address] [place] [phone] Referral ID Status Reason Start Date Expiration Date Visits Requ ested Visits Authorized [id number] Closed 05/01/2020 05/01/2021 1 1 Reason for Visit Outpatient (Routine) - Closed Specialty Diagnoses / Procedures Referred By Contact Refer red To Contact Diagnoses Bradycardia Shlomo Ojeda APRN, [facility] [place] Procedures ECG Heart rhythm monitor (Holter) C.N.P. [address] [place] [phone] Referral ID Status Reason Start Date Expiration Date Visits Requ ested Visits Authorized [id number] Closed 05/01/2020 05/01/2021 1 1 Encounter Details Date Type Department Care Team Description 05/01/2020 Hospital Encounter Department of Shlomo Ojeda Brady cardia Cardiovascular Diseases in MANUFACTURING PROJECT MANAGER, C.N.P. [place], [place] [address] [place] [phone] Social History Tobacco Use Types Packs/Day Years [...] have completed or the highest Martin, MEd, SALESPERSON MEN'S HATS, CAYDEN) degree you have received? Sex Assigned [...] [facility]), Diabetes Mellitus Type 2 ([facility]), Hypertension Essential Primary sdntxs-elatyurt-wcowzve 2 capsules 3 (three) 0 10/12/2020 (CREON) [...] U-100 KwikPen) 100 Diabetes unit/mL (70-30) injection hzlvkt-uppvrpyr-wpvzqar Take 1 capsule by 0 10/12/2020 (CREON) [...] PM Bradycardia Re sults for this CLINIC METAL POLISHER CDT procedure are in the results section. documented in this encounter Results HOLTER MONITOR - IN CLINIC METAL POLISHER (05/01/2020 4:03 PM CDT) [facility] Method Time Signature AF Count 0 count HOLTER SENTINEL Recording Date HOLTER SENTINEL VE Percent 33 percent HOLTER Beats SENTINEL Max Heart Rate 94 bpm HOLTER SENTINEL Max Heart Rate [id number] HOLTER Time SENTINEL Tachycardia 0 count HOLTER Runs SENTINEL VT Runs 21 count HOLTER SENTINEL VE Max Per [id number] HOLTER Hour Time SENTINEL SVE Max Per 19 count HOLTER Hour SENTINEL VT Longest 4 beats HOLTER SENTINEL SVE Percent 0 percent HOLTER Beats SENTINEL VT Max Rate 56113539084635 HOLTER Time SENTINEL Bradycardia 0 count HOLTER Runs SENTINEL Min Heart Rate 60 bpm HOLTER SENTINEL Holter Pauses 0 count HOLTER SENTINEL SVT Runs 0 count HOLTER SENTINEL VT Longest [id number] HOLTER Time SENTINEL Min Heart Rate 36808228548753 HOLTER Time SENTINEL VE Total Beats 33,762 count HOLTER SENTINEL SVE Total 180 count HOLTER Beats SENTINEL Analysis Date 20,200,805 HOLTER SENTINEL VE Max Per 1,903 count HOLTER Hour SENTINEL Mean Heart 70 bpm HOLTER Rate SENTINEL VT Max Rate 134 bpm HOLTER SENTINEL SVE Max Per [id number] HOLTER Hour Time SENTINEL Specimen (Source) Anatomical [...] documented as of this encounter Care Teams Blending Machine Feeder Relationship Specialty Start Date End Date Chris Billings M.B.B.S., M.D. PCP - General Family Medicine 01/10/20 05/21/[address] [place] [address] [place] [phone] documented as of this encounter
--- OUTSIDE RECORDS SUMMARY | 2022-05-28 07:17 | XMS_ITS | Encounter Summary ---
:1945 Author Organization [facility] Address [address] [place] [address] Care Team Providers Name Role Phone Chris Billings M.D. Primary Care Provider [phone] Reason for Visit Reason Comments Post Hospital Follow-up Encounter Details Date Type Department Care Team Description 05/05/2020 Clinical Communication Department of [facility] MedicineRusty M.D. Follow-up [facility], [address] in [place], [place] [address] [address] [place], [place] [phone] (Work) [phone] Social History Tobacco Use Types Packs/Day Years [...] do you attend christianity or Never 2021 baptist services? Do you [...] completed or the highest Martin, MEd, DIE MAKER APPRENTICE, CAYDEN) degree you have received? Sex Assigned at Date Recorded Male 05/21/2018 2:34 PM CDT documented as of this encounter Miscellaneous Notes Telephone Encounter - Sruthi Decker R.N. - 05/08/2020 8:10 AM CDT Call completed by Adult Medical care Coordination Telephone Encounter - Gloria Adams - 05/05/2020 1:50 PM CDT Hospital: [facility] Diagnosis: heart failure Discharge date: 05/07 [...] documented as of this encounter Care Teams Beveller Operator Relationship Specialty Start Date End Date Chris Billings M.B.B.S., M.D. PCP - General Family Medicine 01/10/20 05/21/[address] [place] [address] Teresa [place] se[place] [phone] documented as of this encounter
--- OUTSIDE RECORDS SUMMARY | 2022-05-28 07:17 | XMS_ITS | Encounter Summary ---
:1945 Author Organization [facility] Address [address] [place] [address] Care Team Providers Name Role Phone Chris Billings M.D. Primary Care Provider [phone] Encounter Details Date Type Department Care Team Description 04/19/2020 Clinical Communication Department of Chris Terry [facility], Lorri Tavarez, Clinic, in [place] 300 [facility] 300 [facility] [place] [phone] Social History Tobacco Use Types Packs/Day Years [...] do you attend episcopalian or Never 2021 worship services? Do you [...] completed or the highest Martin, MEd, MARKETING AGENT, CAYDEN) degree you have received? Sex [...] often. Patient is requesting a referral to bala cynwyd pharmacist in [place] to review medications and symptoms he is having. Patient is wanting urgent pharmacy consult in [place]. Please call patient to schedule once referral [...] He feels over medicated. Current Phone Number: [phone] Can Nursing/Provider leave a detailed message: Did [...] documented as of this encounter Care Teams Profile Grinder Relationship Specialty Start Date End Date Chris Billings M.B.B.S., M.D. PCP - General Family Medicine 01/10/20 05/21/[address] [place] [phone] documented as of this encounter
--- OUTSIDE RECORDS SUMMARY | 2022-05-28 07:17 | XMS_ITS | Encounter Summary ---
:1945 Author Organization [facility] Address [address] [place] [address] Care Team Providers Name Role Phone Chris Billings M.D. Primary Care Provider [phone] Reason for Visit Reason Comments [facility] [place] [place] 04/30/20 @ 0914 Encounter Details Date Type Department Care Team Description 05/02/2020 Clinical Department of Ronda Fernandez [facility] Communication Family Medicine, A, R.N. Follow-up ([facility], [address] [facility] 04/30/20 @ 0914) in [facility] [phone] [place], [place] (Work) [phone] Social History Tobacco Use [...] do you attend gnosticist or Never 2021 jehovah's witness services? Do [...] have completed or the highest Martin, MEd, RAILROAD SWITCHMAN, [place]) degree you have received? Sex Assigned [...] to a telephonic visit by the RN Acid Filler in a few days. All questions answered. [...] purely exhausted, but I went to the biochemistry technologist yesterday. This morning, patient notices more edema [...] time. The patient mentions that since his [facility] PCP has left (or will be leaving soon), he plans to establish care in [place] internal medicine once new doctor starts in [...] as of this encounter Care Teams Fur Blowing Machine Attendant Relationship Specialty Start Date End Date Chris Billings M.B.B.S., M.D. PCP - General Family Medicine 01/10/20 05/21/[address] [place] [phone] documented as of this encounter
--- OUTSIDE RECORDS SUMMARY | 2022-05-28 07:17 | XMS_ITS | Encounter Summary ---
:1945 Author Organization [facility] Address [address] [place] [address] Care Team Providers Name Role Phone Chris Billings M.D. Primary Care Provider [phone] Encounter Details Date Type Department Care Team Description 05/03/2020 Clinical Communication Department of Internal Shlomo Ojeda, Medicine in [facility], C.N. [facility] [address] [place] [phone] Social History Tobacco Use Types Packs/Day Years [...] do you attend spiritism or Never 2021 rastafari services? Do you [...] or the highest Martin, MEd, INFORMATION SYSTEMS CONSULTANT, [place]) degree you have received? Sex [...] is looking for lab results. Diallo - [phone] documented in this encounter Plan of Treatment Not on filedocumented as of this encounter Visit Diagnoses Not on filedocumented in this encounter Additional Health Concerns Infection Onset Date Last Indicated Resolved Time COVID19 Pending 05/03/2020 05/03/2020 05/03/2020 10:07 PM CDT Assessment Noted Time PHQ-9 Depression Total Score: 18 04/28/2018 11:27 AM C DT documented as of this encounter Care Teams Pack Master Relationship Specialty Start Date End Date Chris Billings M.B.B.S., M.D. PCP - General Family Medicine 01/10/20 05/21/[address] [place] [phone] documented as of this encounter
--- OUTSIDE RECORDS SUMMARY | 2022-05-28 07:17 | XMS_ITS | Encounter Summary ---
:1945 Author Organization [facility] Address [address] [place] [address] Care Team Providers Name Role Phone Chris Billings M.D. Primary Care Provider [phone] Encounter Details Date Type Department Care Team Description 03/30/2020 Clinical Communication Department of Chris [facility], Lorri Tavarez, Clinic, in [place] [address] [facility] [address] [facility] [place] [phone] Social History Tobacco Use Types Packs/Day Years [...] do you attend hinduism or Never 2021 restorationist services? Do you [...] have completed or the highest Martin, MEd, DURABLE MEDICAL EQUIPMENT REPAIRER, [place]) degree you have received? Sex [...] documented as of this encounter Care Teams Fuels Engineer Relationship Specialty Start Date End Date Chris Billings M.B.B.S., M.D. PCP - General Family Medicine 01/10/20 05/21/[address] [place] [address] [place] [phone] documented as of this encounter
--- OUTSIDE RECORDS SUMMARY | 2022-05-28 07:17 | XMS_ITS | Encounter Summary ---
:1945 Author Organization [facility] Address [address] [place] [address] Care Team Providers Name Role Phone Chris Billings M.D. Primary Care Provider [phone] Reason for Referral Outpatient (Routine) - Closed Specialty Diagnoses / Procedures Referred By Contact Refer red To Contact Diagnoses Bradycardia Shlomo Ojeda APRN, [facility] [place] Procedures ECG Heart rhythm monitor (Holter) C.N.P. [address], [place] [phone] Referral ID Status Reason Start Date Expiration Date Visits Requ ested Visits Authorized [id number] Closed 05/01/2020 05/01/2021 1 1 Reason for Visit Outpatient (Routine) - Closed Specialty Diagnoses / Procedures Referred By Contact Refer red To Contact Cardiovascular Disease Koko Bañuelos, [facility] S [address] 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 Sex [...] Since then, he saw primary care in [place] wanting to decrease his pill burden. He was taken off of his diltiazem and chlorthalidone on March 15, 2020. About two weeks ago developed some worsening shortness of breath and presented to the [place] emergency room and was subsequently admitted to [...] daughter (a physician up in the [facility]). MEDICATIONS Current Outpatient Medications: ??? albuterol sulfate [...] by mouth daily., Disp: , Rfl: ??? eftjqk-yevssunr-uscoqho (CREON) 6,000-19,000-30,[address] capsule, Take [...] Instr:Indicated for: Diabetes, Disp: , Rfl: ??? moivwq-lxcolaey-liwxnjl (CREON) 6,000-19,000-30,[address] capsule, 2 [...] (HCC) 10/16/2009 Pulmonary symptomatology, diagnosis at the [place] unclear, [...] INSERTION INTRAOCULAR LENS Left 04/2008 At the [place] ??? LASER OF PROSTATE W/ GREEN LIGHT [...] the chest April 28, 2020 ([facility] in [place]) INDICATION: Difficulty breathing. Shoulder pain TECHNIQUE: CT [...] thickening at the apices. Pleura and pericardium: Ojroqhys-ec-gpxru bilateral pleural effusions, right mildly greater than [...] lymphoma, versus metastatic adenopathy, is recommended. [facility]: Creatinine 1.72, [...] weighing himself daily. #2 Atherosclerotic Heart Disease [place] Coronary Artery With Other Forms Angina Pectoris [...] 3 Glomerular Filtration Rate 30 To 59 ([facility]) His renal function became elevated while [...] planning on establishing primary care here in [place] since his primary care physician is no longer available in [place]. documented in this encounter Miscellaneous Notes Addendum [...] this 4) PANEL, S/P PM CDT Disease [place] Coronary pro cedure are in Artery With Other Forms the results Angina Pectoris (Angina sect ion. Equivalent) ([facility] ) Hypertension Essential Primary Chronic Kidney Disease Stage 3 Glomerular Filtration Rate 30 To 59 (HCC) BUN (BLOOD UREA Routine 05/01/2020 4:26 Atherosclerotic Heart Results for this NITROGEN), S/P PM CDT Disease [place] Coronary pr ocedure are in Artery With Other Forms the results Angina Pectoris (Angina sect ion. Equivalent) (HCC ) Hypertension Essential Primary Chronic Kidney Disease Stage 3 Glomerular Filtration Rate 30 To 59 (HCC) CREATININE WITH Routine 05/01/2020 4:26 Atherosclerotic Heart Results for this EGFR, S/P PM CDT Disease [place] Coronary proc edure are in Artery With [...] Phon e Number [facility]- [address] [place] [address] [place] [address] System in [place] [address] (ABNORMAL) Creatinine with Estimated GFR (05/09/2020 10:15 AM CDT) Analysis Performed At Patho logist Time Signature Creatinine 2.04 (H) 0.74 - 05/09/2020 [place] 1.35 mg/dL 11:03 AM CDT eGFR-Black/Afri 36 (L) >=60 05/09/2020 [place] can [place] mL/min/BSA 11:03 AM CDT Comment: ----ADDITIONAL INFORMATION---- Estimated GFR calculated using the 2009 CKD_EPI creatinine equation. eGFR Non-Black/ 31 (L) >=60 mL/min/BSA 05/09/2020 11:03 AM CDT [place] Comment: ----ADDITIONAL INFORMATION---- Estimated GFR calculated using the 2009 CKD_EPI creatinine equation. Specimen Anatomical Collection Method Collection Time Receive d Time (Source) Location / / Volume Laterality Blood (Blood, 05/09/2020 10:15 05/09/2020 Venous) AM CDT 10:17 AM CDT Shlomo Ojeda APRN, C.N.P. LAB BLOOD ADD-ON Performing Organization Address City/[facility] Code Phon e Number [facility]- [address] [place] [address], [place] [address] [place] [address] System in [place] [address] (ABNORMAL) BUN (Blood Urea Nitrogen) [...] C.N.P. LAB BLOOD ADD-ON Performing Organization Address City/[facility]/ZIP Code Phon e Number [facility]- [address] [place] [facility] [address] [place] [address] System in [place] [address] Electrolyte (Chem 4) Panel (05/01/2020 [...] C.N.P. LAB BLOOD ADD-ON Performing Organization Address City/[facility]/ZIP Code Phon e Number [facility] [address] [place] [address], [place] [address] [place] [address] System in [place] [address] (ABNORMAL) Creatinine with Estimated GFR (05/01/2020 4:26 PM CDT) Analysis Performed At [facility] Time Signature Creatinine 1.80 (H) 0.74 - 05/01/2020 [place] 1.35 mg/dL 4:49 PM CDT eGFR-Black/Afri 41 (L) >=60 05/01/2020 [place] can [place] mL/min/BSA 4:49 PM CDT Comment: ----ADDITIONAL INFORMATION---- Estimated GFR calculated using the 2009 CKD_EPI creatinine equation. eGFR Non-Black/ 36 (L) >=60 mL/min/BSA 05/01/2020 4:49 PM CDT [place] Comment: ----ADDITIONAL INFORMATION---- Estimated GFR calculated using the 2009 CKD_EPI creatinine equation. Specimen Anatomical Collection Method Collection Time Receive d Time (Source) Location / / Volume Laterality Blood (Blood, 05/01/2020 4:26 PM 05/01/20 4:30 Venous) CDT PM CDT Shlomo Ojeda APRN, C.N.P. 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 (05/01/2020 4:03 PM CDT) [facility] gist Method Time Signature AF Count 0 count HOLTER SENTINEL Recording Date HOLTER SENTINEL VE Percent 33 percent HOLTER Beats SENTINEL Max Heart Rate 94 bpm HOLTER SENTINEL Max Heart Rate [id number] HOLTER Time SENTINEL Tachycardia 0 count HOLTER Runs SENTINEL [place] Runs 21 count HOLTER SENTINEL VE Max Per [id number] HOLTER Hour Time SENTINEL SVE Max Per 19 count HOLTER Hour SENTINEL VT Longest 4 beats HOLTER SENTINEL SVE Percent 0 percent HOLTER Beats SENTINEL VT Max Rate [id number] HOLTER Time SENTINEL Bradycardia 0 count HOLTER Runs SENTINEL Min Heart Rate 60 bpm HOLTER SENTINEL Holter Pauses 0 count HOLTER SENTINEL SVT Runs 0 count HOLTER SENTINEL VT Longest [id number] HOLTER Time SENTINEL Min Heart Rate 27520992494482 HOLTER Time SENTINEL VE Total Beats 33,762 count HOLTER SENTINEL SVE Total 180 count HOLTER Beats SENTINEL Analysis Date 20,200,805 HOLTER SENTINEL VE Max Per 1,903 count HOLTER Hour SENTINEL Mean Heart 70 bpm HOLTER Rate SENTINEL VT Max Rate 134 bpm HOLTER SENTINEL SVE Max Per [id number] HOLTER Hour Time SENTINEL Specimen (Source) Anatomical [...] Failure (HCC) - Primary Atherosclerotic Heart Disease [place] Cor onary Artery With Other Forms Angina [...] of this encounter Care Teams Community Health Advocate Relationship Specialty Start Date End Date Chris Billings M.B.B.S., M.D. PCP - General Family Medicine 01/10/20 05/21/[address] [place] [address] [place] [phone] documented as of this encounter
--- OUTSIDE RECORDS SUMMARY | 2022-05-28 07:17 | XMS_ITS | Encounter Summary ---
:1945 Author Organization [facility] Address [address] [place] [address] Care Team Providers Name Role Phone Chris Billings M.D. Primary Care Provider [phone] Reason for Visit Reason Comments Fatigue Auth/Cert Specialty Diagnoses / Procedures Referred By Contact Refer red To Contact Diagnoses Arrhythmia Ventricular Failure Heart (HCC) Failure Renal Acute (Acute Kidney Injury) (HCC) Procedures I49.9 (ICD-10-CM) - Arrhythmia Ventricular Referral ID Status Reason Start Date Expiration Date Visits Requ ested Visits Authorized [id number] 1 1 Encounter Details Date Type Department Care Team Description 05/03/2020 - Hospital Encounter [facility] Brandon Ellsworth D.O. [address] [place] [phone] Failure Heart (HCC) (Primary Dx); 05/06/2020 [facility] Michael J, M.D. [address] [place] [phone] Arrhythmia Ventricular; [facility] Roselia Mark M.D. [address] [place] [phone] Failure Renal Acute (Acute Kidney Injury ) (HCC) [facility], Tenth Floor [address] [place] [phone] Social History Tobacco Use Types Packs/Day Years [...] do you attend hinduism or Never 2021 uatsdin services? Do you [...] have completed or the highest Martin, MEd, PARTS REPRESENTATIVE, [place]) degree you have received? Sex [...] M.D. Discharge Provider Team: ERNESTO [facility] PRINCIPAL DIAGNOSIS Acute On [...] disturbances should be promptly examined by an writer editor. The dose should be reduced or discontinued in patients with persistent hepatic enzyme levels of 3times the upper limit of normal values. FOLLOW-UP APPOINTMENTS Scheduled Appointments 05/09/2020 10:30 AM LAB [address] [place] [address] Laboratory Medicine 05/11/2020 10:00 AM Rusty Da Silva M.D. Family Medicine 05/18/2020 8:10 AM LAB 01 [facility] Laboratory Medicine 05/25/2020 8:15 AM [...] L fluid restriction PRIMARY PROVIDER No care wireless team member to display Primary Care Providers: Chris Billings M.B.B.S., M.D. (General) [address] [place] [phone] Primary Care Provider Primary Care Provider MARGIN [...] management, yearly follow up with a local Hemstitching Machine Operator and Dietitian is recommended. Please check with your insurance company asdiabetes education visits are commonly covered. Your primary care provider can provide referrals foreducation. AttachmentsThe following attachments cannot be sent through Care Everywhere. Amiodarone (By mouth) (Fijian)Hydralazine (By mouth) (Fijian)documented in this encounter Medications at Time of [...] by mouth tabletIndications: daily. 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 ppfklg-hcxlzcim-bxeuihi Take 1 capsule by 0 10/12/2020 (CREON) [...] difficulty to identifying a primary physician at [facility]. We will try to [...] in provider's residence to the patient in [facility]. Plan was discussed with the patient. DCS Pager [phone] will continue to follow. Call primary service for diabetes concerns between [phone]. Primary service to contact DCS via hospital earth moving machine operator for questions. Marce Sy APRN, C.N.P. [...] ASSESSMENT / PLAN #1 Increased Ventricular Ectopy [place] #2 Acute on Chronic Left Ventricular Systolic [...] ASSESSMENT / PLAN #1 Increased Ventricular Ectopy [place] #2 Acute on Chronic Left Ventricular Systolic [...] Collaborating physician: Dhiraj Michelle M.D. Admitting service: [facility] HISTORY OF PRESENT ILLNESS Mr. Costa is a 74 y.o. male who presented to [place] emergency department for Heart failure and was [...] 33% He is being admitted to the [facility] service for [...] Cardiology evaluation in Emergency Department here at [facility]. The following portions of the patient's history were reviewed and updated as appropriate: allergies,current medications, family history, medical history, social history, surgical history and problem list. PAST MEDICAL HISTORY Past Medical History: Diagnosis Date ??? Apnea Sleep Obstructive 06/18/2011 intolerant to CPAP therapy ??? Asthma (HCC) 10/16/2009 Pulmonary symptomatology, diagnosis at the [facility] unclear, but probably some degree of COPD. [...] INSERTION INTRAOCULAR LENS Left 04/2008 At the [facility] ??? LASER OF PROSTATE W/ GREEN LIGHT PVP 08/28/2016 Greenlight photoselective vaporization of the prostate and cystoscopy with bladder biopsy and fulguration of a 2cm area; 08/28/[address] Prasanna Bernal at the [facility]. ??? TONSILLECTOMY ??? VASECTOMY REVIEW [...] by mouth daily., 05/03/2020 at 0800 ??? aztfvh-kdcikjaw-bcuidxg (CREON) 6,000-19,000-30,[address] capsule, 2 [...] for: Diabetes, Unknown at Unknown time ??? udjclh-mnlogjop-eeoqdoo (CREON) 6,000-19,000-30,[address] capsule, Take [...] dullness in both bases. Precordium is quiet. Pinckard indistinct. First and second heart sounds are [...] Friday - Friday, 7:30 to 4:00pm at [phone]. To qualify for participation in a Cardiac [...] in provider's residence to the patient in [facility]. Thank you for the consult. DCS Pager [phone] will follow. Call primary service for diabetes concerns between [phone]. Primary service to contact DCS via hospital earth moving machine operator for questions. Rodney Moreno M.D. - [...] Master's degree (e.g., MA, MS, Martin, MEd, PARTS REPRESENTATIVE, CAYDEN) Occupational History Employer: RETIRED Social Needs [...] week Gets together: Twice a week Attends uatsdin service: 1 to 4 times per year [...] swelling. The patient was referred to the [facility] ED by our physician daughter [...] radiology report(s). Case reviewed with other health health care analyst, including Cardiology and Admitting Provider. Final Diagnoses: [...] also initiated on hydralazine for afterload reduction. Tbrwnfetey906 mg TID was initiated for antiarrhythmic therapy. [...] - STAT 05/05/2020 1:39 Results for HOSPITAL SHIRT IRONER - PM CDT this proc edure MONITORED [...] Signature Ventricular Rate 53 BPM MUSE ECG/Min [place] Interval 144 ms MUSE QRSD Interval 118 ms MUSE QT Interval 498 ms MUSE QTC Interval 467 ms MUSE P [place] 24 degrees MUSE R [place] 7 degrees MUSE T Wave [place] 87 degrees MUSE Specimen Anatomical Collection Method [...] (05/06/2020 4:21 AM CDT) [facility] Time Signature Potassium, S 4.0 3.6 - [...] 05/06/2020 DTL Black/ mL/min/BSA 6:25 AM CDT [place] Comment: ----ADDITIONAL INFORMATION---- Estimated GFR [...] APRNNKerry LAB BLOOD ADD-ON Performing Organization Address City/[facility]/ZIP [facility] Phon e Number [facility] - 200 [place], [place] [address] [facility] [address] [facility] 200 [facility] (ABNORMAL) Glucose, POCT (05/05/2020 10:08 PM [...] Provider LAB POCT ORDERABLES-MANUAL Performing Organization Address City/[facility]/ZIP [facility] Phon e Number POC [facility] [address] [place] [address] PCLX [facility] [place] [address] [place] POC 200 [facility] (ABNORMAL) Glucose, POCT (05/05/2020 5:11 PM [...] Address City/State/ZIP Code Phon e Number POC [facility] [address] [place] [address] PCLX [facility] [place] [address] [place] POC [address] First [facility] (ABNORMAL) Basic Metabolic Panel (05/05/2020 3:08 PM [...] 05/05/2020 DTL Black/ mL/min/BSA 4:56 PM CDT [place] Comment: ----ADDITIONAL INFORMATION---- Estimated GFR [...] C.N.P. LAB BLOOD ADD-ON Performing Organization Address City/[facility]/ZIP Code Phon e Number [facility] - 200 [place], [place] [address] [facility] [place] [address] Laboratories-[facility] 200 [facility] HOLTER MONITOR - HOSPITAL SHIRT IRONER - MONITORED IN HOSPITAL OR ED DISCHARGE (05/05/2020 1:39 PM CDT) [facility] gist Method Time Signature Recording Date HOLTER SENTINEL VT Runs 0 count HOLTER SENTINEL SVE Max Per HOLTER Hour Time SENTINEL Min Heart Rate 46 bpm HOLTER SENTINEL SVE Percent 2 percent HOLTER Beats SENTINEL VE Max Per 421 count HOLTER Hour SENTINEL Min Heart Rate [id number] HOLTER Time SENTINEL Tachycardia 0 count HOLTER Runs SENTINEL VE Max Per [id number] HOLTER Hour Time SENTINEL Holter Pauses 0 count HOLTER SENTINEL AF Count 0 count HOLTER SENTINEL SVE Max Per 129 count HOLTER Hour SENTINEL VE Percent 2 percent HOLTER Beats SENTINEL Analysis Date 20,200,810 HOLTER SENTINEL Bradycardia 0 count HOLTER Runs SENTINEL Max Heart Rate 71 bpm HOLTER SENTINEL Max Heart Rate [id number] HOLTER Time SENTINEL Mean Heart 56 bpm [...] (05/05/2020 12:13 PM CDT) Analysis Performed At [facility] logist Time Signature Glucose, POCT, 204 [...] Organization Address City/State/ZIP Code Phon e Number [facility] [address] [place] [address] [place] [address] [facility] [address] Microscopic Automated (05/05/2020 11:21 AM CDT) P athologist Signature Microscopy Normal 05/05/2020 1:54 PATY PM CDT Specimen Anatomical Collection Method Collection Time Receive d Time (Source) Location / / Volume Laterality Urine 05/05/2020 11:21 05/05/2020 AM CDT 12:23 PM CDT Dat Perez M.D. LAB URINE ORDERABLES Performing Organization Address City/State/ZIP Code Phon e Number [facility] - [address] [place], [place] [address] [place] [address] Laboratories-[facility] [address] Creatinine, Random, [...] Organization Address City/State/ZIP Code Phon e Number [facility] - [address] [place], [place] [address] [place] [address] Laboratories-[facility] [address] Urea, Random, [...] Organization Address City/State/ZIP Code Phon e Number [facility] - [address] [place], [place] [address] [facility] [place] [address] Laboratories-[facility] [address] (ABNORMAL) Urinalysis with Microscopic: Urine, Clean Catch (05/05/2020 11:21 AM CDT) [facility] Method Time Signature Source Midstream 05/05/2020 PATY 12:24 PM CDT Appearance Normal Normal 05/05/2020 PATY 1:17 PM CDT Osmolality, U 322 150 - 1150 05/05/2020 PATY mOsm/kg 1:35 PM CDT pH, U 5.6 4.5 - 8.0 05/05/2020 PATY 1:35 PM CDT Comment: ----ADDITIONAL INFORMATION---- This test was developed and its performa nce characteristics determined by [facility] in [...] Organization Address City/State/ZIP Code Phon e Number [facility] - [address] [place], [place] [address] [facility] [place] [place] [address] Laboratories-[facility] [address] ECG MONITOR [...] change. Patchy medial right lower lung consolidations. Wmzyr-oo-naiuvgln right and small left p leural effusion. [...] change. Patchy medial right lower lung consolidations. Rmqke-op-sophcvua right and small left p leural effusion. Cardiomegaly. Aortic calcifications. No acute osseous abnorma lities. Dat Perez M.D. IMG DIAGNOSTIC IMAGING PROCE DURES (ABNORMAL) Glucose, POCT (05/05/2020 8:05 AM CDT) Analysis Performed At [facility] Time Signature Glucose, POCT, 152 [...] Address City/State/ZIP Code Phon e Number POC [facility] [address] [place] [address] PCLX [facility] [place] [address] [place] POC [address] (ABNORMAL) Basic Metabolic Panel (05/05/2020 4:21 AM CDT) Analysis Performed At [facility] Signature Potassium, S 3.9 3.6 - [...] 05/05/2020 DTL Black/ mL/min/BSA 5:13 AM CDT [place] Comment: ----ADDITIONAL INFORMATION---- Estimated GFR [...] Organization Address City/State/ZIP Code Phon e Number [facility] - [address] [place] [address] [facility] [address] Laboratories-[facility] 200 [facility] (ABNORMAL) CBC without Differential (05/05/2020 4:21 AM CDT) [facility] gist Method Time Signature Hemoglobin 9.2 [...] C.N.P. LAB BLOOD ADD-ON Performing Organization Address City/[facility]/ZIP Code Phon e Number [facility] - 200 [place], [place] [address] [address] 200 [facility] (ABNORMAL) Glucose, POCT (05/04/2020 8:43 PM [...] Provider LAB POCT ORDERABLES-MANUAL Performing Organization Address City/[facility] Phon e Number [facility] 200 [place] [phone] PCLX [address] POC 200 [facility] Glucose, POCT (05/04/2020 4:49 PM CDT) Analysis Performed At [facility] Signature Glucose, POCT, 79 70 - [...] Provider LAB POCT ORDERABLES-MANUAL Performing Organization Address City/[facility] Phon e Number POC [facility] [address] [place] [phone] PCLX [address] POC 200 [facility] (ABNORMAL) Basic Metabolic Panel (05/04/2020 4:07 PM CDT) Analysis Performed At [facility] logis Time Signature Potassium, S 4.5 [...] 05/04/2020 DTL Black/ mL/min/BSA 5:03 PM CDT [place] Comment: ----ADDITIONAL INFORMATION---- Estimated GFR [...] Organization Address City/State/ZIP Code Phon e Number [facility] - [address] [place], [place] [address] [facility] [place] [address] Laboratories-[facility] [address] (ABNORMAL) Magnesium (05/04/2020 11:46 AM CDT) P athologist Signature Magnesium, S 2.4 (H) 1.7 - 2.3 05/04/2020 DTL mg/dL 12:25 PM CDT Specimen Anatomical Collection Method Collection Time Receive d Time (Source) Location / / Volume Laterality Blood (Blood, 05/04/2020 11:46 05/04/2020 Venous) AM CDT 12:14 PM CDT Dat Perez M.D. LAB BLOOD ADD-ON Performing Organization Address City/[facility]/ZIP Code Phon e Number [facility] - [address] [place], [place] [address] [facility] [place] [place] [address] [facility] [address] [facility] Glucose, POCT (05/04/2020 11:45 AM CDT) Analysis [...] Provider LAB POCT ORDERABLES-MANUAL Performing Organization Address City/[facility] Phon e Number POC [facility] [address] [place] [phone] PCLX [address] POC [address] [facility] (ABNORMAL) Glucose, POCT (05/04/2020 7:59 AM CDT) P athologist Signature Glucose, POCT, 191 (H) 70 - 140 05/04/2020 PCLX B mg/dL 8:06 AM CDT Specimen Anatomical Collection Method Collection Time Receive d Time (Source) Location / / Volume Laterality Blood 05/04/2020 7:59 AM 0 8:07 CDT AM CDT Unknown Provider LAB POCT ORDERABLES-MANUAL Performing Organization Address City/[facility]/ZIP [facility] Phon e Number POC [facility] [address] [place] [address] POC [address] (ABNORMAL) Prothrombin [...] C.N.P. LAB BLOOD ADD-ON Performing Organization Address City/[facility] Phon e Number [facility] [address] [place] [address] Laboratories-[address] Magnesium (05/04/2020 4:20 AM CDT) P athologist Signature Magnesium, S 1.9 1.7 - 2.3 05/04/2020 DTL mg/dL 5:44 AM CDT Specimen Anatomical Collection Method Collection Time Receive d Time (Source) Location / / Volume Laterality Blood (Blood, 05/04/2020 4:20 AM 05/04/20 20 5:25 Venous) CDT AM CDT Lulu Wilkins APRN, C.N.P. LAB BLOOD ADD-ON Performing Organization Address City/[facility] Phon e Number [facility] - [address] (ABNORMAL) Comprehensive Metabolic Panel (05/04/2020 4:20 [...] 05/04/2020 DTL Black/ mL/min/BSA 5:44 AM CDT [place] Comment: ----ADDITIONAL INFORMATION---- Estimated GFR [...] C.N.P. LAB BLOOD ADD-ON Performing Organization Address City/State/[facility] Code Phon e Number [facility] - [address] [place], [place] [address] [place] [address] Laboratories-[address] (ABNORMAL) CBC without Differential (05/04/2020 4:20 [...] Organization Address City/State/ZIP Code Phon e Number [facility] - [address] [place], [place] [address] (ABNORMAL) Troponin T, 5th Generation (05/04/2020 [...] C.N.P. LAB BLOOD ADD-ON Performing Organization Address City/[facility]/ZIP Code Phon e Number [facility] - [address] [place], [place] [address] [facility] [place] [place] [address] Laboratories-[facility] [address] (ABNORMAL) Glucose, [...] Provider LAB POCT ORDERABLES-MANUAL Performing Organization Address City/[facility] Code Phon e Number [facility] [address] [place] [address] [place] [address] [place] POC 200 [facility] SARS Coronavirus 2 IgG Ab, Serum [...] ?? Testing was performed using the EUROIMMUN Xubd-KWOJ-ExY-2 ALISTAIR (IgG), which has received Emergency Use Authori zation (EUA) by the U.S. Food and Drug Administration . ?? Fact sheets for this EUA assay can be fo und at the following links: ?? Factsheet for healthcare Providers: ?? https://www.fda.gov/media/588218/downloa d Factsheet for healthcare Patients: ?? https://www.fda.gov/media/483980/downloa d Specimen Anatomical Collection Method Collection Time Receive d Time (Source) Location / / Volume Laterality Blood (Blood, 05/03/2020 8:03 PM 05/04/20 20 7:27 Venous) CDT AM CDT Lulu Tae Wilkins APRN, C.N.P. LAB MICROBIOLOGY - BLOOD ORDERABLES Performing Organization Address City/State/ZIP Code Phon e Number [facility] [address] [place], [place] [address] [facility] [place] [address] Laboratory Medicine and Pathology [address] [place] SARS Coronavirus-2 RNA, V (05/03/2020 7:12 PM CDT) [facility] Method Time Signature SARS-CoV-2 Nasopharynx 05/04/2020 [...] is performed using the Aptima SARS-CoV-2 assay ([employer] which has received Emergency Use Authori zation (EUA) by the U.S. Food and Drug Administration. Fact sheets for this Emergency Use Autho rization (EUA) assay can be found at the following links: For Healthcare Providers: https://www.fd a.gov/media/339602/download For Patients: https://www.fda.gov/media/ 525399/download Specimen Anatomical Collection Method Collection Time Receive d Time (Source) Location / / Volume Laterality Varies 05/03/2020 7:12 PM 0 CDT 10:07 PM CDT Lulu Wilkins APRN C.NMauroPMauro LAB MICROBIOLOGY - GENER AL ORDERABLES Performing Organization Address City/State/ZIP Code Phon e Number [facility] - 200 [place], [place] [address] [facility] [place] [address] Laboratories-[facility] 200 [facility] (ABNORMAL) Glucose, POCT (05/03/2020 5:55 PM [...] Provider LAB POCT ORDERABLES-MANUAL Performing Organization Address City/[facility]/ZIP Code Phon e Number POC [facility] [address] [place] [address] PCLX [facility] [place] [address] [place] POC [address] [place] [address] (ABNORMAL) Troponin T, 2H/6H, 5th Gen (05/03/2020 [...] 20 4:01 Venous) CDT PM CDT Narrative [facility] - [facility] - 05/03/2020 9:13 PM CDT Specimen Information: Specimen ID: [id number] Specimen Type: Blood Specimen Collection Start Date: 0 ??3:53 PM Specimen Received Date: 05/03/2020 ??4:01 PM Specimen ID: [id number] Specimen Type: Blood Specimen Collection Start Date: 0 ??8:03 PM Specimen Received Date: 05/03/2020 ??8:23 PM Brandon Ellsworth D.O. LAB BLOOD TROPONIN Performing Organization Address City/State/ZIP Code Phon e Number [facility] - [address] [place] [address] [place] [address] Laboratories-[facility] [address] DX Chest [...] D.O. LAB BLOOD ADD-ON Performing Organization Address City/[facility] Code Phon e Number [facility] - [address] [place], [place] [address] [facility] DTL [address] (ABNORMAL) NT-Pro B-Type Natriuretic Peptide (BNP) [...] D.O. LAB BLOOD ADD-ON Performing Organization Address City/State/[facility] Code Phon e Number [facility] - [address] [place], [place] [address] [facility] [place] [address] Laboratories-[address] (ABNORMAL) Troponin T, Baseline, 5th gen [...] Organization Address City/State/ZIP Code Phon e Number [facility] - [address] [place], [place] [address] [facility] [place] [address] Laboratories-[facility] 200 [facility] (ABNORMAL) Basic Metabolic Panel (05/03/2020 1:44 [...] eGFR-Black/Afri 39 (L) >=60 05/03/2020 STMA can [place] mL/min/BSA 2:20 PM CDT Comment: ----ADDITIONAL INFORMATION---- Estimated GFR calculated using the 2009 CKD_EPI creatinine equation. eGFR Non-Black/ 33 (L) >=60 mL/min/BSA 05/03/2020 2:20 PM CDT STMA [place] Comment: ----ADDITIONAL INFORMATION---- Estimated GFR [...] D.O. LAB BLOOD ADD-ON Performing Organization Address City/[facility] Phon e Number [facility] - 200 [place], [place] [address] [place] [address] (ABNORMAL) CBC without Differential (05/03/2020 1:44 PM CDT) [facility] gist Method Time Signature Hemoglobin 10.0 [...] D.O. LAB BLOOD ADD-ON Performing Organization Address City/[facility] Code Phon e Number [facility] - [address] ECG 12 Lead (05/03/2020 1:34 PM CDT) P athologist Signature Ventricular Rate 59 BPM MUSE ECG/Min [place] Interval 182 ms MUSE QRSD Interval 102 ms MUSE QT Interval 494 ms MUSE QTC Interval 489 ms MUSE P [place] 60 degrees MUSE R [place] -21 degrees MUSE T Wave [place] 72 degrees MUSE Specimen Anatomical Collection Method [...] Given 05/04/2020 8:29 AM CDT 60 mg kvwcvl-mjmbxkpr-zyolzam Given 05/04/2020 4:50 PM CDT 1 capsule 6,000-19,000-30,[address] capsule 1 capsule (CREON) 1 capsule, oral, As needed, snacks, Starting on Fri05/03/20 at 1729, Do NOT crush or chew. Capsule may be opened and the contents taken without crushing or chewing. Given 05/04/2020 12:37 PM CDT 1 capsule Given 05/04/2020 8:30 AM CDT 1 capsule xvoutk-gcfovvgw-zehkbnm Given 05/06/2020 12:00 PM CDT 2 capsules [...] 0517 (Given - Provider: Chelo Gautam RJustina, [facility])1421 (Given - Provider: Francisco Zuluaga RMauroN.)2155 [...] Comment: RMG 79) 0840 (Given - Provider: Kirstie DickensN.)1234 (Given - Provider: Francisco A Zan, [...] may be split on score if needed. wztbxf-ovfwcwvz-wnocxdw 6,000-19,000-30, [address] capsule 2 [...] of breath, Starting on Fri05/03/20 at 1933 cudqvj-pdiiscrz-rzrlscv 6,000-19,000-30, [address] capsule 1 [...] as of this encounter Care Teams Belt Sewer Relationship Specialty Start Date End Date Chris Billings M.B.B.S., M.D. PCP - General Family Medicine 01/10/20 05/21/[address] [place] [address] [place] [phone] documented as of this encounter
--- OUTSIDE RECORDS SUMMARY | 2022-05-28 07:17 | XMS_ITS | Encounter Summary ---
:1945 Author Organization [facility] Address [address] [place] [address] Care Team Providers Name Role Phone Chris Billings M.D. Primary Care Provider +1 [phone] Reason for Visit Reason Comments COVID Nurse Line Encounter Details Date Type Department Care Team Description 04/28/2020 Nurse Triage Department of [facility] Johnson, DHRUV Santana Nurse Line Medicine, [facility] in [place], [place] 10[address] [facility] [address] [place] [phone] Social History Tobacco Use Types Packs/Day Years [...] have completed or the highest Martin, MEd, DELIVERER OUTSIDE, CAYDEN) degree you have received? Sex Assigned at Date Recorded Male 05/21/2018 2:34 PM CDT documented as of this encounter Plan of Treatment Not on filedocumented as of this encounter Visit Diagnoses Not on filedocumented in this encounter Additional Health Concerns Assessment Noted Time PHQ-9 Depression Total Score: 18 04/28/2018 11:27 AM C DT documented as of this encounter Care Teams Pierogi Maker Relationship Specialty Start Date End Date Chris Billings M.B.B.S., M.D. PCP - General Family Medicine 01/10/20 05/21/[address] [place] [address] [place] [phone] documented as of this encounter
--- OUTSIDE RECORDS SUMMARY | 2022-05-28 07:18 | XMS_ITS | Encounter Summary ---
:1945 Author Organization [facility] Address [address] [place] [address] Care Team Providers Name Role Phone Chris Billings M.D. Primary Care Provider +1 [phone] Reason for Visit Appointment Request (Routine) - Closed Specialty Diagnoses / Referred By Contact Referred To Procedures Contact Gastroenterology and Diagnoses Pancreatitis Chronic (HCC) Emil Zurita Hepat[facility] [place] [address] [place] [address] Referral ID Status Reason Start Date Expiration Date Visits Requ ested Visits Authorized [id number] Closed 02/02/2020 02/01/2021 1 1 Encounter Details Date Type Department Care Team Description 03/13/2020 Office Visit Division of Greyson Zurita Ch Gastroenterology in [place] Stein (HCC) (Primary Dx) [place], [place] [address] [place] [address] [address] [place] [phone] Social History Tobacco Use Types Packs/Day Years [...] do you attend gnosticist or Never 2021 methodist services? Do you [...] completed or the highest Martin, MEd, PILOT SAFETY INSPECTOR, [place]) degree you have received? [...] in the morning. Stool consistency is between [place] 5 in 6. There is no blood [...] PM CDT 25-Hydroxy D 30 ng/mL 03/14/2020 [facility] Total 2:46 PM CDT Comment: ----REFERENCE VALUE---- 25-HYDROXY D TOTAL (D2+D3) Optimum level s in the healthy population are 20-50, patients with bone disease may benefit from higher levels within this r stan. ----ADDITIONAL INFORMATION---- This test was developed and its performa nce characteristics determined by [facility] in a manner consistent with CLIA requirements. This test has not been cleared or approved by the U.S. [place] d and Drug Administration. Specimen Anatomical Collection Method Collection Time Receive d Time (Source) Location / / Volume Laterality Blood (Blood, 03/13/2020 12:19 03/14/2020 7:41 Venous) PM CDT AM CDT Emil Zurita M.D. LAB BLOOD ADD-ON Performing Organization Address City/[facility]/RUST Code Phon e Number [facility] [address] [place] [address] AYALA [address] C[facility] [place] [address] Laboratory Medicine and Pathology [address] [...] M.D. LAB BLOOD ADD-ON Performing Organization Address City/[facility]/ZIP Code Phon e Number [facility] - [address] [place] [address] 05 [facility] [place] [address] Laboratories-[facility] [address] documented in this encounter Visit Diagnoses Diagnosis Pancreatitis Chronic (HCC) - Primary documented in this encounter Additional Health Concerns Assessment Noted Time PHQ-9 Depression Total Score: 18 04/28/2018 11:27 AM C DT documented as of this encounter Care Teams Air Route Controller Relationship Specialty Start Date End Date Chris Billings M.B.B.S., M.D. PCP - General Family Medicine 01/10/20 05/21/[address] [place] [phone] documented as of this encounter
--- OUTSIDE RECORDS SUMMARY | 2022-05-28 07:18 | XMS_ITS | Encounter Summary ---
:1945 Author Organization [facility] Address [address] [place] [address] Care Team Providers Name Role Phone Chris Billings M.D. 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 [facility] Procedures CT Cardiac Angiogram with Coronary Arteries with IV Contrast [address] [place] [address] Referral ID Status Reason Start Date Expiration Date Visits Requ ested Visits Authorized [id number] Closed 01/20/2020 01/19/2021 1 1 Encounter Details Date Type Department Care Team Description 01/27/2020 Hospital Encounter Department of [place], Atherosc lerotic Heart Radiology, Leanne Champagne M.D. Disease [place] Coronary Building, in [address] Artery With Other Forms [place], [place] Angina Pectori s (Angina [place] [phone] Equivalent) ([facility]) [address] [phone] [place], [place] (Work) [phone] Social History Tobacco Use [...] completed or the highest Martin, MEd, WATCH GUARD GATE, CAYDEN) degree you have received? Sex Assigned [...] once Atherosclerotic Heart for 1 dose. 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 Patient verified he is taking isosorbide mononitrate ER 30 mg daily and chlorthalidone 25 mg daily. No additional questions or concerns at time of call. 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 ??FFRct res ults [...] , this study is being sent to [facility] for coronary FFRct analysis. FFRct resul ts will be reported separately when analysis by [facility] is complete Koko [address]INAS CT PROCEDURES documented in this encounter Visit Diagnoses Diagnosis Atherosclerotic Heart Disease [place] Cor onary Artery With Other Forms Angina [...] documented as of this encounter Care Teams Pleasure Craft Sailor Relationship Specialty Start Date End Date Chris Billings M.B.B.S., M.D. PCP - General Family Medicine 01/10/20 05/21/[address] [place] [address] [place] [phone] documented as of this encounter
--- OUTSIDE RECORDS SUMMARY | 2022-05-28 07:18 | XMS_ITS | Encounter Summary ---
:1945 Author Organization [facility] Address [address] [place] [address] Care Team Providers Name Role Phone Chris Billings M.D. Primary Care Provider +1 [phone] Reason for Referral Outpatient (Routine) - Closed Specialty Diagnoses / Procedures Referred By Contact Refer red To Contact Diagnoses Diabetes Mellitus Type 2 With Diabetic Neuropathy (HCC) Pancreatitis Chronic (HCC) Exocrine Pancreatic Insufficiency Keisha Lopez APRN, [facility] Procedures EUS C.N.P., M.S.N. [address] [place] [address] Referral ID Status Reason Start Date Expiration Date Visits Requ ested Visits Authorized [id number] Closed 12/17/2019 12/16/2020 1 1 Reason for Visit Outpatient (Routine) - Closed Specialty Diagnoses / Procedures Referred By Contact Refer red To Contact Diagnoses Diabetes Mellitus Type 2 With Diabetic Neuropathy (HCC) Pancreatitis Chronic (HCC) Exocrine Pancreatic Insufficiency Keisha Lopez APRN, [facility] Procedures EUS C.N.P., M.S.N. [address] [place], [place] [address] Referral ID Status Reason Start Date Expiration Date Visits Requ ested Visits Authorized [id number] Closed 12/17/2019 12/16/2020 1 1 Encounter Details Date Type Department Care Team Description 03/07/2020 Hospital Division of Keisha Lopez Type 2 With Diabetic Neuropathy (HCC); Encounter Gastroenterology in T, WEDDING CONSULTANT, Pancreat itis Chronic (HCC); [place], [place] CShayna, M.S.N. Exocrine Pancreatic Insufficiency (HCC) [address] [facility] [address] [place] [address] [phone] Social History Tobacco Use Types Packs/Day Years [...] have completed or the highest Martin, MEd, PANEL EDGE SEALER, [place]) degree you have received? Sex Assigned [...] through Care Everywhere. About Your Endoscopic Ultrasound (Greek)documented in this encounter Medications at Time of [...] once Atherosclerotic Heart for 1 dose. 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 ? - No specimens collected. Narrative [facility] - 03/07/2020 12:45 PM CDT Gonda 2 [...] Organization Address City/State/ZIP Code Phon e Number [facility] NA (ABNORMAL) Glucose, POCT (03/07/2020 9:38 AM CDT) Analysis Performed At Patho logist Time Signature Glucose, POCT, 219 (H) 70 - 140 03/07/2020 [facility] B mg/dL 9:40 AM CDT Site Capillary 03/07/2020 [facility] 9:40 AM CDT Specimen Anatomical Collection Method Collection Time Receive d Time (Source) Location / / Volume Laterality Blood 03/07/2020 9:38 AM 0 9:40 CDT AM CDT Unknown Provider LAB POCT ORDERABLES-MANUAL Performing Organization Address City/State/ZIP Code Phon e Number [facility] [address] [place] [address] OUTPATIENT LABS [facility] [place], [place] [phone] [place] [address] documented in this encounter [...] documented as of this encounter Care Teams Services Manager Relationship Specialty Start Date End Date Chris Billings M.B.B.S., M.D. PCP - General Family Medicine 01/10/20 05/21/[address] [place] [address] [place] [phone] documented as of this encounter
--- OUTSIDE RECORDS SUMMARY | 2022-05-28 07:18 | XMS_ITS | Encounter Summary ---
:1945 Author Organization [facility] Address [address] [place] [address] Care Team Providers Name Role Phone Chris Billings M.D. Primary Care Provider +1 [phone] Reason for Visit Reason Onset Date Comments Outpatient COVID-19 Testing 03/29/2020 Encounter Details Date Type Department Care Team Description 03/29/2020 External Outreach Department of Chad Pettit Infect rozina Upper Internal Medicine in J, D.O. Respiratory (Primary [place], [place] [address]) [address] [facility] [place] [phone] Social History Tobacco Use Types Packs/Day Years [...] do you attend yazidi or Never 2021 congregation services? Do you [...] or the highest Martin, MEd, PROFESSOR OF EARLY CHILDHOOD EDUCATION, CAYDEN) degree you have received? Sex Assigned [...] RNA, V Symptomatic (03/29/2020 12:07 PM CDT) [facility] Method Time Signature SARS-CoV-2 Swab, 03/30/2020 [...] is performed using the Aptima SARS-CoV-2 assay ([employer] which has received Emergency Use Authori zation (EUA) by the U.S. Food and Drug Administration. Fact sheets for this Emergency Use Autho rization (EUA) assay can be found at the following links: For Healthcare Providers: https://www.[employer] a.gov/media/079021/download For Patients: https://www.fda.gov/media/ 199574/download Specimen Anatomical Collection Method Collection Time Receive d Time (Source) Location / / Volume Laterality Varies 03/29/2020 12:07 03/29/2020 8:01 (Nasopharynx) PM CDT PM CDT Chad Pettit D.O. LAB MICROBIOLOGY - GENERAL O RDERABLES Performing Organization Address City/[facility] Phon e Number [facility]- [address] [place] [address] [place] [address] System [address] documented in this encounter Visit Diagnoses Diagnosis Infection Upper Respiratory - Primary documented in this encounter Additional Health Concerns Infection Onset Date Last Indicated Resolved Time COVID19 Pending 03/29/2020 03/29/2020 03/30/2020 4:56 AM CDT Assessment Noted Time PHQ-9 Depression Total Score: 18 04/28/2018 11:27 AM C DT documented as of this encounter Care Teams Insurance Claim Auditor Relationship Specialty Start Date End Date Chris Billings M.B.B.S., Rhoda. PCP - General Family Medicine 01/10/20 05/21/[address] [place] [address] [place] [address] documented as of this encounter
--- OUTSIDE RECORDS SUMMARY | 2022-05-28 07:18 | XMS_ITS | Encounter Summary ---
:1945 Author Organization [facility] Address [address] [place] [address] Care Team Providers Name Role Phone Chris Billings M.D. Primary Care Provider +[phone] Reason for Referral Outpatient (Routine) - Closed Specialty Diagnoses / Procedures Referred By Contact Refer red To Contact Endocrinology Carlos Kendall M.D.[facility] Ph.D. [address] [place] [phone] Referral ID Status Reason Start Date Expiration Date Visits Requ ested Visits Authorized [id number] Closed 03/17/2020 03/17/2021 1 1 Reason for Visit Outpatient (Routine) - Closed Specialty Diagnoses / Procedures Referred By Contact Madelaine castillo To Contact Endocrinology Diagnoses Diabetes Mellitus Type 2 With Diabetic Neuropathy (HCC) Diarrhea Fatigue Eiml Zurita M.D. [facility] [address] [place] [phone] Referral ID Status Reason Start Date Expiration Date Visits Requ ested Visits Authorized [id number] Closed 02/17/2020 02/16/2021 1 1 Encounter Details Date Type Department Care Team Description 03/17/2020 Comprehensive Visit Division of Carlos Kendall Diabetes Mellitus Type 2 With Diabetic Neuropathy (HCC); Endocrinology in [place] Padilla; [facility] Ph.D. Fatigue [address] [place] [address] [phone] Social History Tobacco Use Types Packs/Day Years [...] do you attend pentecostalism or Never 2021 adventist services? Do you [...] have completed or the highest Martin, MEd, ACLS NURSE, [place]) degree you have received? Sex [...] too much. He has not seen an accounts payable specialist for a while but the his accounts payable specialist is living very close to his place [...] Address City/State/ZIP Code Phon e Number [facility] - [address] [place], [place] [address] [facility] [place] [address] Laboratories-[facility] [address] C-Peptide (04/12/2020 8:14 AM CDT) athologist Signature C-Peptide, S 3.1 1.1 - 4.4 04/13/2020 [facility] ng/mL 8:56 AM CDT Specimen Anatomical Collection Method Collection Time Receive d Time (Source) Location / / Volume Laterality Blood (Blood, 04/12/2020 8:14 AM 04/13/20 20 8:20 Venous) CDT AM CDT Carlos Kendall M.D., Ph.D. LAB BLOOD ADD-ON Performing Organization Address City/State/ZIP Code Phon e Number [facility] [address] [place], [place] [address] [place] [address] CENTER [facility] [place] [address] Laboratory Medicine and Pathology [address] [...] e Number [facility]- [address] [place] [address] [place] [address] System in [place] [address] Sodium (04/12/2020 8:14 [...] e Number [facility]- [address] [place] [address] [facility] [address] System in [place] [address] [facility] (ABNORMAL) CBC without Differential (04/12/2020 8:14 AM [...] e Number [facility]- [address] [place] [address] [place] [address] System in [place] [address] [facility] (ABNORMAL) Lipid [...] e Number [facility]- [address] [address] [place] [address] System in [place] [address] ALT (Alanine Aminotransferase) (04/12/2020 8:14 AM CDT) [facility] gist Method Time Signature Alanine 16 7 [...] e Number [facility]- [address] [place] [address] [place] [address] System in [place] [address] AST (Aspartate Aminotransferase) [...] Ph.D. LAB BLOOD ADD-ON Performing Organization Address City/State/[facility] Code Phon e Number [facility]- [address] [facility] [place] [address] [place] [address] System in [place] [facility] (ABNORMAL) Creatinine with Estimated GFR (04/12/2020 8:14 AM CDT) Analysis Performed At Patho logist Time Signature Creatinine 1.42 (H) 0.74 - 04/12/2020 [place] 1.35 mg/dL 9:08 AM CDT eGFR-Black/Afri 55 (L) >=60 04/12/2020 [facility] can [place] mL/min/BSA 9:08 AM CDT Comment: ----ADDITIONAL INFORMATION---- Estimated GFR calculated using the 2009 CKD_EPI creatinine equation. eGFR Non-Black/ 48 (L) >=60 mL/min/BSA 04/12/2020 9:08 AM CDT [facility] [place] Comment: ----ADDITIONAL INFORMATION---- Estimated GFR calculated using the 2009 CKD_EPI creatinine equation. Specimen Anatomical Collection Method Collection Time Receive d Time (Source) Location / / Volume Laterality Blood (Blood, 04/12/2020 8:14 AM 04/12/20 8:31 Venous) CDT AM CDT Carlos Kendall M.D., Ph.D. LAB BLOOD ADD-ON Performing Organization Address City/State/ZIP Code Phon e Number [facility]- [address] [facility] [place] [address] [place] [address] System in [place] [address] (ABNORMAL) Hemoglobin A1c [...] Ph.D. LAB BLOOD ADD-ON Performing Organization Address City/[facility]/ZIP Code Phon e Number [facility]- [address] [place] [address] [place] [address] System in [place] [address] [facility] (ABNORMAL) Glucose, Fasting (04/12/2020 8:14 AM CDT) [...] e Number [facility]- [address] [place] [address] [place] [address] System in [place] [address] [facility] documented in this encounter Visit Diagnoses Diagnosis 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) Diarrhea Fatigue documented in this encounter Additional Health Concerns Assessment Noted Time PHQ-9 Depression Total Score: 18 04/28/2018 11:27 AM C DT documented as of this encounter Care Teams Building Manager Relationship Specialty Start Date End Date Chris Billings M.B.B.S., M.D. PCP - General Family Medicine 01/10/20 05/21/[address] [place] [address] [place] [phone] documented as of this encounter
--- OUTSIDE RECORDS SUMMARY | 2022-05-28 07:18 | XMS_ITS | Encounter Summary ---
:1945 Author Organization [facility] Address [address] [place] [address] Care Team Providers Name Role Phone Chris Billings M.D. Primary Care Provider +1 [phone] Reason for Visit Reason Comments [facility] Nurse Line Encounter Details Date Type Department Care Team Description 02/02/2020 Clinical Division of [facility] Zurita Communication Gastroenterology in [place], [place] Pato [address] [facility] [address] [place] [address] [place] [address] Social History Tobacco Use Types Packs/Day Years [...] do you attend sabianism or Never 2021 holiness services? Do you [...] completed or the highest Martin, MEd, SENIOR ELECTRICAL ESTIMATOR, [place]) degree you have received? Sex [...] reply to: Debi Galarza Scheduling Contact Number: [phone] documented in this encounter Plan of Treatment Not on filedocumented as of this encounter Visit Diagnoses Not on filedocumented in this encounter Additional Health Concerns Assessment Noted Time PHQ-9 Depression Total Score: 18 04/28/2018 11:27 AM C DT documented as of this encounter Care Teams Face Boss Relationship Specialty Start Date End Date Chris Billings M.B.B.S., M.D. PCP - General Family Medicine 01/10/20 05/21/[address] [place] [address] [place] [phone] documented as of this encounter
--- OUTSIDE RECORDS SUMMARY | 2022-05-28 07:18 | XMS_ITS | Encounter Summary ---
:1945 Author Organization [facility] Address [address] [place] [address] Care Team Providers Name Role Phone Chris Billings M.D. Primary Care Provider +1 [phone] Reason for Referral Outpatient (Routine) - Closed Specialty Diagnoses / Procedures Referred By Contact Refer red To Contact Infectious Diseases Diagnoses Pancreatitis Chronic (HCC) Exocrine Pancreatic Insufficiency Diarrhea Emil Zurita [place] M.D. [address] [place] [address] Referral ID Status Reason Start Date Expiration Date Visits V isits Requested Authorized [id number] Closed Specialty 03/10/2020 03/10/2021 1 1 Services Required Reason for Visit Reason Comments Pancreas Encounter Details Date Type Department Care Team Description 03/10/2020 Clinical Communication Division of Kasey Zurita Gastroenterology in [place] Stein [place], [place] [address] [facility] [address] [place] [phone] Social History Tobacco Use Types Packs/Day Years [...] do you attend zoroastrian or Never 2021 christianity services? Do you [...] completed or the highest [place], MEd, DIRECTOR PATIENT FINANCIAL SERVICES, CAYDEN) degree you have received? Sex [...] documented as of this encounter Care Teams Topper Packer Relationship Specialty Start Date End Date Chris Billings M.B.B.S., M.D. PCP - General Family Medicine 01/10/20 05/21/[address] [place] [phone] documented as of this encounter
--- OUTSIDE RECORDS SUMMARY | 2022-05-28 07:18 | XMS_ITS | Encounter Summary ---
:1945 Author Organization [facility] Address [address] [place] [address] Care Team Providers Name Role Phone Chris Billings M.D. Primary Care Provider +1 [phone] Encounter Details Date Type Department Care Team Description 02/17/2020 Hospital Encounter Department of Parminder, Diabetes Mellitus Type 2 With Diabetic Neuropathy (HCC); Laboratory Medicine [place] Stein Diarrhea; and Pathology, [address] [place] [address], in [place], [place] [address] [place] [address] [place], [place] (Work) [phone] Social History Tobacco Use Types Packs/Day Years [...] do you attend jainism or Never 2021 amish services? Do you belong to any clubs or No 10/09/2021 organizations such as jainism groups, unions, fraMagton or athletic groups, or school groups? How [...] have completed or the highest [place], MEd, RESPIRATORY THERAPY MANAGER, CAYDEN) degree you have received? Sex [...] once Atherosclerotic Heart for 1 dose. 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 Please review specific state and local [facility] for reporting information. Semi-Urgent Result. Semi-Urgent This is a semi-urgent result [facility] - ([place]) [facility] S Specimen Anatomical Collection Method Collection Time Receive d Time (Source) Location / / Volume Laterality Stool 02/24/2020 5:00 AM 0 CDT 11:34 AM CDT Resulting Agency Comment Mailed In Specimen Emil Zurita M.D. LAB MICROBIOLOGY - GENERAL O ODELLERASHAY Performing Organization Address City/State/ZIP Code Phon e Number [facility] - [facility] [address] [place], [place] [address] [facility] [place] [address] [facility] [place] [address] [facility] (ABNORMAL) GI Pathogen Panel, PCR, Feces [...] using the FDA-cl eared FilmArray GI Panel ([id number] Semi-Urgent This is a semi-urgent result [facility] - () [facility] Specimen Anatomical Collection Method Collection Time Receive d Time (Source) Location / / Volume Laterality Stool (Stool) 02/24/2020 5:00 AM 02/25/20 20 CDT 12:05 PM CDT Resulting Agency Comment Mailed In Specimen Emil Zurita M.D. LAB MICROBIOLOGY - GENERAL O GERMAN Performing Organization Address City/State/ZIP Code Phon e Number [facility] - [address] [place], [place] [address] [facility] [place] [address] 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 PCP - General Family Medicine 01/10/20 05/21/[address] [place] [address] [place] [address] documented as of this encounter
--- OUTSIDE RECORDS SUMMARY | 2022-05-28 07:18 | XMS_ITS | Encounter Summary ---
:1945 Author Organization [facility] Address [address] [place] [address] Care Team Providers Name Role Phone Chris Billings M.D. 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 [facility] Procedures CT Retrospective Heartflow FFRct [address] [place] [address] Referral ID Status Reason Start Date Expiration Date Visits Requ ested Visits Authorized [id number] Closed 01/27/2020 01/26/2021 1 1 Encounter Details Date Type Department Care Team Description 01/27/2020 Hospital Encounter Department of Robbin Bañuelos Heart Radiology in Koko Champagne M.D. Disease [place] Coronary [place], [address] [place] [address] Artery With Other Forms [place], [place] Angina Pectoris (Angina [address] [address] Equivalent) ([facility]) [place], [place] [phone] [phone] (Work) Social History Tobacco Use Types [...] do you attend sikh or Never 2021 christianity services? Do you [...] have completed or the highest [place], MEd, DIETETIC TECHNICIAN, CAYDEN) degree you have received? Sex [...] once Atherosclerotic Heart for 1 dose. 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) ([facility]) flash glucose scanning Use as directed [...] Angina Pectoris (Angina Equivalent) ([facility]), Diabetes Mellitus Type 2 ([facility]), Hypertension Essential Primary lisinopriL Take 1 [...] HEARTFLOW FFRCT (most inpatients PM CDT Disease [place] this p rocedure and all Coronary Artery [...] encounter Visit Diagnoses Diagnosis Atherosclerotic Heart Disease [place] Cor onary Artery With Other Forms Angina Pectoris (Angina Equivalent) (HCC) documented in this encounter Additional Health Concerns Assessment Noted Time PHQ-9 Depression Total Score: 18 04/28/2018 11:27 AM C DT documented as of this encounter Care Teams Transition Advisor Relationship Specialty Start Date End Date Chris Billings M.B.B.S., M.D. PCP - General Family Medicine 01/10/20 05/21/[address] [place] [address] [place] [phone] documented as of this encounter
--- OUTSIDE RECORDS SUMMARY | 2022-05-28 07:18 | XMS_ITS | Encounter Summary ---
:1945 Author Organization [facility] Address [address] [place] [address] Care Team Providers Name Role Phone Chris Billings M.D. Primary Care Provider +1 [phone] Encounter Details Date Type Department Care Team Description 02/16/2020 Clinical Communication Division of Parminder Gastroenterology in Rhoda Stein [place], [place] [address] [facility] [address] [place] [address] [phone] Social History Tobacco Use Types Packs/Day Years [...] do you attend rastafarian or Never 2021 quaker services? Do you [...] completed or the highest [place], MEd, RN MDS, CAYDEN) degree you have received? Sex Assigned at Date Recorded Male 05/21/2018 2:34 PM CDT documented as of this encounter Plan of Treatment Not on filedocumented as of this encounter Visit Diagnoses Not on filedocumented in this encounter Additional Health Concerns Assessment Noted Time PHQ-9 Depression Total Score: 18 04/28/2018 11:27 AM C DT documented as of this encounter Care Teams Industrial Electrician Relationship Specialty Start Date End Date Chris Billings M.B.B.S., [place]. PCP - General Family Medicine 01/10/20 05/21/[address] [place] [phone] documented as of this encounter
--- OUTSIDE RECORDS SUMMARY | 2022-05-28 07:18 | XMS_ITS | Encounter Summary ---
:1945 Author Organization [facility] Address [address] [place] [address] Care Team Providers Name Role Phone Chris Billings M.D. Primary Care Provider +1 [phone] Encounter Details Date Type Department Care Team Description 03/07/2020 Anesthesia Event Division of Zhang White APRN, SWEETIE [address] [place] [phone] Gastroenterology in Natasha Barrios M.D. [address] [place] [phone] [place], [place] [address] [place], [place] [address] Anesthesia Record Procedure Summary Procedure Name Responsible Anesthesia Start Anesthesia Stop Anesthesiologist Time Time ENDOSCOPIC Zhang White APRN, 03/07/20 1101 03/07/20 1146 ULTRASOUND (EUS) CERTIFIED SURGICAL TECHNICIAN Events Date Time Event Comment 03/07/2020 [...] h andoff to the receiving staff during [facility] ch we 1. Identified the patient [...] 1417 by Choco , 03/07/20 1142 by Carmenciat, Placement Time: 1417; Noam Nickerson, M.S.N., Catheter [...] have completed or the highest [place], MEd, PUTTY REMOVER, CAYDEN) degree you have received? Sex Assigned at Date Recorded Male 05/21/2018 2:34 PM CDT documented as of this encounter OR Notes Anesthesia Postprocedure Evaluation - Zhang White APRN, CRNA - 03/07/2020 11:46 AM CDT Patient: Jonnathan Costa Procedure Summary Date: 03/07/20 Room / Location: Division of Gastroenterology in [place], [place] Anesthesia Start: 1101 Anesthesia Stop: 1146 [...] (HCC) [K86.81] Location: Division of Gastroenterology in [place], [place] Pertinent components of the patient's history [...] with patient /legal guardian or through an tank house operator. Risks/Benefits/Alternatives of Blood transfusion discussed with patient [...] as of this encounter Care Teams Medical Secretary Receptionist Relationship Specialty Start Date End Date Chris Billings M.B.B.S., M.D. PCP - General Family Medicine 01/10/20 05/21/[address] [place] [address] [place] [phone] documented as of this encounter
--- OUTSIDE RECORDS SUMMARY | 2022-05-28 07:18 | XMS_ITS | Encounter Summary ---
:1945 Author Organization [facility] Address [address] [place] [address] Care Team Providers Name Role Phone Chris Billings M.D. Primary Care Provider +1 [phone] Encounter Details Date Type Department Care Team Description 03/20/2020 Orders Only Division of Ran Eduardo Pancreatitis Chronic (HCC) (Primary Dx); Gastroenterology in [address] [facility] Clinical Research Exam [place], [place] [address] [facility] [address] [place] [address] [phone] Social History Tobacco Use Types Packs/Day Years [...] do you attend congregation or Never 2021 samaritan services? Do you [...] completed or the highest [place], MEd, APPLICATION SUPPORT INTERN, CAYDEN) degree you have received? Sex [...] as of this encounter Care Teams Liner Machine Operator Relationship Specialty Start Date End Date Chris Billings M.B.B.S., [place]. PCP - General Family Medicine 01/10/20 05/21/[address] [place] [phone] documented as of this encounter
--- OUTSIDE RECORDS SUMMARY | 2022-05-28 07:18 | XMS_ITS | Encounter Summary ---
:1945 Author Organization [facility] Address [address] [place] [address] Care Team Providers Name Role Phone Chris Billings M.D. Primary Care Provider +1 [phone] Reason for Visit Reason Comments Pancreas Vitamin D & Hgb A1c results Encounter Details Date Type Department Care Team Description 03/27/2020 Clinical Division of Parminder, Pancreas (Vitnaomy in Communication Gastroenterology in [place], D & Hgb A1c [place], [place] M.D. results) [address] [facility] [address] [place] [address] [place] [address] Social History Tobacco Use Types Packs/Day Years [...] do you attend pentecostal or Never 2021 shinto services? Do you [...] have completed or the highest [place], MEd, IC DESIGNER CUSTOM, CAYDEN) degree you have received? Sex Assigned [...] documented as of this encounter Care Teams Transit Authority Police Officer Relationship Specialty Start Date End Date Chris Billings M.B.B.S., M.D. PCP - General Family Medicine 01/10/20 05/21/[address] [place] [address] [place] [phone] documented as of this encounter
--- OUTSIDE RECORDS SUMMARY | 2022-05-28 07:18 | XMS_ITS | Encounter Summary ---
:1945 Author Organization [facility] Address [address] [place] [address] Care Team Providers Name Role Phone Chris Billings M.D. Primary Care Provider +1 [phone] Reason for Visit Reason Comments other Outpatient (Routine) - Closed Specialty Diagnoses / Procedures Referred By Contact Refer red To Contact Infectious Diseases Diagnoses Pancreatitis Chronic (HCC) Exocrine Pancreatic Insufficiency Diarrhea [facility] [place] [address] [place] [address] Referral ID Status Reason Start Date Expiration Date Visits V isits Requested Authorized [id number] Closed Specialty 03/10/2020 03/10/2021 1 1 Services Required Encounter Details Date Type Department Care Team Description 03/13/2020 Comprehensive Visit Section of Freda Zurita M.D. [address] [place] [phone] Pancreatitis Chronic (HCC); Infectious Diseases Katelyn Dixon M.D. [address] [place] [phone] Exocrine Pancreatic Insufficiency (HCC); in [facility] [address] [place] [phone] Social History Tobacco Use Types Packs/Day Years [...] do you attend jainism or Never 2021 pentecostalism services? Do you [...] have completed or the highest [place], MEd, ROCK MASON APPRENTICE, CAYDEN) degree you have received? Sex [...] Master's degree (e.g., MA, MS, [place], MEd, ROCK MASON APPRENTICE, CAYDEN) Occupational History Employer: RETIRED Social Needs [...] week Gets together: Twice a week Attends pentecostalism service: 1 to 4 times per year [...] as of this encounter Care Teams Network Cable Installer Relationship Specialty Start Date End Date Chris Billings M.B.B.S., M.D. PCP - General Family Medicine 01/10/20 05/21/[address] [place] [address] [place] [phone] documented as of this encounter
--- OUTSIDE RECORDS SUMMARY | 2022-05-28 07:18 | XMS_ITS | Encounter Summary ---
:1945 Author Organization [facility] Address [address] [place] [address] Care Team Providers Name Role Phone Chris Billings M.D. Primary Care Provider +1 [phone] Encounter Details Date Type Department Care Team Description 03/29/2020 Clinical Communication Department of Chris Terry [facility], Lorri Tavarez, Clinic, in [place] 300 [facility] 300 [facility] [place] [phone] Social History Tobacco Use Types Packs/Day Years [...] do you attend sabianism or Never 2021 christian services? Do you [...] have completed or the highest [place], MEd, TIER IN, CAYDEN) degree you have received? Sex Assigned [...] phone call with Dr. Billings. Current : [phone] Can Nursing/Provider leave a detailed message: Yes [...] documented as of this encounter Care Teams Screen Printing Machine Operator Relationship Specialty Start Date End Date Chris Billings M.B.B.S., M.D. PCP - General Family Medicine 01/10/20 05/21/[address] [place] [phone] documented as of this encounter
--- OUTSIDE RECORDS SUMMARY | 2022-05-28 07:18 | XMS_ITS | Encounter Summary ---
:1945 Author Organization [facility] Address [address] [place] [address] Care Team Providers Name Role Phone Chris Billings M.D. Primary Care Provider +1 [phone] Reason for Visit Reason Comments COVID Nurse Line Encounter Details Date Type Department Care Team Description 03/29/2020 Nurse Triage Department of [facility] Kanwal Brock COVID Nurse Line Medicine, [facility], [facility] [address] [address] Social History Tobacco Use [...] have completed or the highest [place], MEd, MULESER, CAYDEN) degree you have received? Sex Assigned [...] to be swabbed for COVID-19, sent to [place] located [address] [facility]. Take frontage road to back of [...] if re-testing is necessary. Education Resources: https://www .cdc.gov/coronavirus/2019-ncov/im-upj-hxx-sick/uqsji-huny-wojb.html Education: patient/caregiver Patient/caregiver able to teach back Patient agreeable to plan of care: Yes The following references were used: [facility] novel coronavirus (COVID- 19) resources Nursing judgement documented in this encounter Plan of Treatment Not on filedocumented as of this encounter Visit Diagnoses Not on filedocumented in this encounter Additional Health Concerns Assessment Noted Time PHQ-9 Depression Total Score: 18 04/28/2018 11:27 AM C DT documented as of this encounter Care Teams Cdl Truck Driver Relationship Specialty Start Date End Date Chris Billings M.B.BRhoda Walker. PCP - General Family Medicine 01/10/20 05/21/[address] [place] [phone] documented as of this encounter
--- OUTSIDE RECORDS SUMMARY | 2022-05-28 07:18 | XMS_ITS | Encounter Summary ---
:1945 Author Organization [facility] Address [address] [place] [address] Care Team Providers Name Role Phone Chris Billings M.D. Primary Care Provider +1 [phone] Encounter Details Date Type Department Care Team Description 02/27/2020 Orders Only Division of Parminder, Diarrhea (Prima ry Dx) Gastroenterology in Rhoda Stein [place], [place] [address] [facility] [address] [place] [phone] [phone] Social History Tobacco Use Types Packs/Day Years [...] do you attend spiritism or Never 2021 caodaism services? Do you [...] or the highest [place], MEd, MEDICAL ASSISTANT OB GYN, CAYDEN) degree you have received? Sex Assigned [...] as of this encounter Care Teams Command And Control Systems Integrator Relationship Specialty Start Date End Date Chris Billings M.B.BDenise, MDahlia. PCP - General Family Medicine 01/10/20 05/21/[address] [place] [address] [place] [phone] documented as of this encounter
--- OUTSIDE RECORDS SUMMARY | 2022-05-28 07:18 | XMS_ITS | Encounter Summary ---
:1945 Author Organization [facility] Address [address] [place] [address] Care Team Providers Name Role Phone Chris Billings M.D. Primary Care Provider +1 [phone] Encounter Details Date Type Department Care Team Description 02/10/2020 Clinical Communication Department of Chris Terry [facility], Lorri Tavarez, Clinic, in [place] 300 [facility] 300 [facility] [place] [phone] Social History Tobacco Use Types Packs/Day Years [...] have completed or the highest [place], MEd, INVERTEBRATE PALEONTOLOGIST, CAYDEN) degree you have received? Sex Assigned at Date Recorded Male 05/21/2018 2:34 PM CDT documented as of this encounter Miscellaneous Notes Telephone Encounter - Kira Sorenson - 02/10/2020 11:35 AM CDT Reason for Communication: Patient calling, has had continuous diarrhea for about a month. Has discussed with GI in [place] and has appts down there in February [...] Mechanic Relationship Specialty Start Date End Date Chris Billings M.B.BDenise, MDahlia. PCP - General Family Medicine 01/10/20 05/21/[address] [place], [place] [address], [place] [phone] documented as of this encounter
--- OUTSIDE RECORDS SUMMARY | 2022-05-28 07:18 | XMS_ITS | Encounter Summary ---
:1945 Author Organization [facility] Address [address] [place] [address] Care Team Providers Name Role Phone Chris Billings M.D. Primary Care Provider +1 [phone] Reason for Visit Reason Comments Medication Problem low energy Encounter Details Date Type Department Care Team Description 03/15/2020 Office Visit Department of [facility] Chris Billings etjeffry Mellitus Type 2 Without Complication (HCC) (Primary Dx); Medicine, Lorri Tavarez, Atheros clerotic [facility] [place] Coronary Artery Without Angina Pectoris; Clinic, in [place] Hypertension Essential Primary; [place] [facility] [place], [place] [phone] Social History Tobacco Use Types Packs/Day [...] you attend jehovah's witness or Never 2021 muslim services? Do you [...] have completed or the highest [place], MEd, LINER CHECKER, CAYDEN) degree you have received? Sex [...] Complication (HCC) #2 Atherosclerotic Heart [facility] [place] Coronary Artery Without Angina Pectoris #3 Hypertension [...] minutes of this visit was spent in [id number] care, review of medications and counseling. documented [...] Address City/State/ZIP Code Phon e Number [facility] - [address] [place], [place] [address] [facility] [place] [address] Laboratories-[facility] [address] T4 (Thyroxine), Free [...] [facility]- [address] [place] [address] [place] [address] System in [place] [address] (ABNORMAL) S-TSH (Thyroid-Stimulating Hormone [...] [facility] [address] [place] [address] [place] [address] System in [place] [address] documented in this encounter Visit Diagnoses Diagnosis Diabetes Mellitus Type 2 Without Complic ation (HCC) - Primary Atherosclerotic [facility] [place] Coronary Artery Without Angina Pectoris Hypertension Essential Primary Fatigue documented in this encounter Additional Health Concerns Assessment Noted Time PHQ-9 Depression Total Score: 18 04/28/2018 11:27 AM C DT documented as of this encounter Care Teams Plant Production Worker Relationship Specialty Start Date End Date WaribChris guerrero M.B.B.S., MDahlia. PCP - General Family Medicine 01/10/20 05/21/[address] [place] [address] [place], [place] [phone] documented as of this encounter
--- OUTSIDE RECORDS SUMMARY | 2022-05-28 07:18 | XMS_ITS | Encounter Summary ---
:1945 Author Organization [facility] Address [address] [place] [address] Care Team Providers Name Role Phone Chris Billings M.D. Primary Care Provider [phone] Encounter Details Date Type Department Care Team [...] do you attend judaism or Never 2021 islam services? Do you [...] have completed or the highest Martin, MEd, SURVEILLANCE AGENT, [place]) degree you have received? Sex [...] as of this encounter Care Teams Supervisor Electrolytic Tinning Relationship Specialty Start Date End Date Chris Billings M.B.B.S., M.D. PCP - General Family Medicine 01/10/20 05/21/[address] [place] [address] [place] [phone] documented as of this encounter
--- OUTSIDE RECORDS SUMMARY | 2022-05-28 07:18 | XMS_ITS | Encounter Summary ---
:1945 Author Organization [facility] Address [address] [place] [address] Care Team Providers Name Role Phone Chris Billings M.D. Primary Care Provider [phone] Encounter Details Date Type Department Care Team Description 03/13/2020 Hospital Encounter Department of Parminder, Pancreat itis Chronic Laboratory Medicine Rhoda Stein (HCC) and Pathology, [address] [place] [address], in [place], [place] [address] [place] [address] [place], [place] (Work) [phone] Social History Tobacco Use Types Packs/Day Years [...] do you attend baptism or Never 2021 yarsani services? Do you [...] have completed or the highest Martin, MEd, POCKET CLOSER, [place]) degree you have received? Sex Assigned [...] once Atherosclerotic Heart for 1 dose. 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 6 [...] 2 ([facility]), Hypertension Essential Primary lisinopriL Take 1 tablet [...] this D2 AND D3, S PM CDT ([facility] [...] and its performa nce characteristics determined by [facility] in a manner consistent with [...] Phon e Number [facility] [address] [place]A [place], [place] [address] SUPPORT [facility] [place] [address] Laboratory Medicine and Pathology [address] [...] [facility] [address] [place], [place] [address] [facility] [place] [address] Laboratories-[facility] [address] documented in this encounter Visit Diagnoses Diagnosis Pancreatitis Chronic (HCC) documented in this encounter Additional Health Concerns Assessment Noted Time PHQ-9 Depression Total Score: 18 04/28/2018 11:27 AM C DT documented as of this encounter Care Teams Electronic Science Teacher Relationship Specialty Start Date End Date Chris Billings M.B.B.S., M.D. PCP - General Family Medicine 01/10/20 05/21/[address] [place] [phone] documented as of this encounter
--- OUTSIDE RECORDS SUMMARY | 2022-05-28 07:18 | XMS_ITS | Encounter Summary ---
:1945 Author Organization [facility] Address [address] [place] [address] Care Team Providers Name Role Phone Chris Billings M.D. Primary Care Provider [phone] Reason for Referral Outpatient (Routine) - Closed Specialty Diagnoses / Procedures Referred By Contact Refer red To Contact Endocrinology Diagnoses Diabetes Mellitus Type 2 With Diabetic Neuropathy (HCC) Diarrhea Fatigue Emil Zurita M.D. [facility] [address] [place], [place] [address] Referral ID Status Reason Start Date Expiration Date Visits Requ ested Visits Authorized [id number] Closed 02/17/2020 02/16/2021 1 1 Encounter Details Date Type Department Care Team Description 02/10/2020 Clinical Communication Division of Parminder Gastroenterology in Rhoda Stein [place], [place] [address] [facility] [address] [place] [phone] Social History Tobacco Use Types Packs/Day Years [...] 10/09/2021 organizations such as bahai groups, unions, [employer] or athletic groups, or school groups? [...] have completed or the highest Martin, MEd, MILITARY PILOT, CAY[place]) degree you have received? Sex Assigned [...] BM's in the morning (down from 5-6) [place] 6 (was [place] 7) No blood in his stool Since [...] With 03/13/2020 (clinic) Diabetic Neuropathy (Approxi mate), ([facility]) Expires: Diarrhea 02/14/2023 Fatigue documented as of [...] [facility] - [address] [place], [place] [address] [facility] [place] [address] Laboratories-[facility] [address] (ABNORMAL) GI Pathogen [...] using the FDA-cl eared FilmArray GI Panel ([employer] Semi-Urgent This is a semi-urgent result [facility] - (CHAMBERS) [facility] Specimen Anatomical Collection Method Collection Time Receive d Time (Source) Location / / Volume Laterality Stool (Stool) 02/24/2020 5:00 AM 02/25/20 20 CDT 12:05 PM CDT Resulting Agency Comment Mailed In Specimen Emil Zurita M.D. 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 PCP - General Family Medicine 01/10/20 05/21/[address] [place] [phone] documented as of this encounter
--- OUTSIDE RECORDS SUMMARY | 2022-05-28 07:19 | XMS_ITS | Encounter Summary ---
:1945 Author Organization [facility] Address [address] [place] [address] Care Team Providers Name Role Phone Chris Billings M.D. 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 Do you [...] completed or the highest Martin, MEd, FOOD PREPARATION WORKER, [place]) degree you have received? Sex [...] scanning reader (FREESTYLE ILEANA 14 DAY READER) [facility] Use as directed 1 each 0 ??? flash glucose sensor (FREESTYLE ILEANA 14 DAY SENSOR) kit Use as directed. 6 kit 3 ??? insulin aspart U-100 (NovoLOG FlexPen) 100 unit/mL injection Inject 0-35 Units under the skin asneeded (up to 6/d). ??? insulin glargine (LANTUS) 100 unit/mL injection Inject 44 Units under the skin at bedtime. ??? xylozw-oulhdykw-fzpmdnj (CREON) 6,000-19,000-30,[address] capsule Take 2 capsules by mouthas directed. 2 capsules with meals and 1 with snacks (Patient taking differently: Take 2 capsules bymouth as directed. 3 capsules with meals and 2 with snacks ) 240 capsule 3 ??? losartan (for_COZAAR) 100 mg tablet Take 1 tablet by mouth daily. ??? PEN NEEDLE, DIABETIC [facility] Yani Fine 30 disposable needles. For use with Insulin Pens, 4 times daily ??? SYRINGE-NEEDLE,INSULIN,0.5 ML (INSULIN SYRINGE [facility]) ??? 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 This Telephone Visit was performed during the - emergency, when many states had issued dhofajg-ju-jusbj orders. documented in this encounter Plan of Treatment Scheduled Referrals Name Type Priority Associated Diagnoses Order [facility] Cardiovascular Disease Outpatient Routine Atherosclerotic He art Expected: - General cardiology Referral Disease [place] 02/10 consult (clinic) Coronary Artery With (Ap proximate), Other Forms Angina Expires: Pectoris (Angina 01/11/2023 Equivalent) ([facility]) documented as of this encounter Results (ABNORMAL) [...] Code Phon e Number [facility] [address] [place] [address] [facility] [place] [address] System in [place] [address] [facility] (ABNORMAL) Albumin, Random, Urine (01/13/2020 8:21 AM CDT) [facility] gist Method Time Signature Microalbumin 2002.0 [...] Code Phon e Number [facility] [address] [place] [address] [place] [address] System in [place] [address] [facility] documented in this encounter Visit Diagnoses Diagnosis 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 PCP - General Family Medicine 01/10/20 05/21/[address] [place] [address] [place] [phone] documented as of this encounter
--- OUTSIDE RECORDS SUMMARY | 2022-05-28 07:19 | XMS_ITS | Encounter Summary ---
:1945 Author Organization [facility] Address [address] [place] [address] Care Team Providers Name Role Phone Chris Billings M.D. Primary Care Provider [phone] Reason for Visit Reason Onset Date Comments Outpatient COVID-19 Testing 01/24/2020 Encounter Details Date Type Department Care Team Description 01/24/2020 External Outreach Department of Collin Cervantes Infectmendez venegas [facility] Medicine, D.[place]. Respiratory ([place] [address]) [place], [place] [address] [address] [place], [place] [phone] [address] (Work) [phone] Social History Tobacco Use Types Packs/Day Years [...] do you attend synagogue or Never 2021 episcopalian services? Do you [...] completed or the highest Martin, MEd, INTERNATIONAL EXCHANGE COORDINATOR, [place]) degree you have received? Sex [...] SARS Coronavirus-2, PCR (01/24/2020 12:56 PM CDT) [facility] Method Time Signature SARS Swab, 01/25/2020 [...] [facility] in a manner co nsistent with CLIA requirements. Independent review by the U.S. Food and Drug Administration is pending. Visit the CDC website: https://www.cdc.gov/coronavirus/ ?? for the most recent guidelines on Mederos virus testing. Fact Sheet for Healthcare Providers: (https://www.Act[employer] Life/it-mmfil es/ Provider_Fact_Sheet_for_[facility] [place]_COVI D-19.pdf) Fact Sheet for Patients: (https://www.[employer]/it-mmfil es/ Patient_Fact_Sheet_for_COVID-19.pdf) Specimen Anatomical Collection Method Collection Time Receive d Time (Source) Location / / Volume Laterality Varies 01/24/2020 12:56 01/24/2020 2:41 (Nasopharynx) PM CDT PM CDT Collin Cervantes D.O. LAB MICROBIOLOGY - GENERAL O RDERABLES Performing Organization Address City/State/ZIP Code Phon e Number [facility] - [address] [place], [place] [address] [facility] [address] Laboratories-[facility] [address] documented in this encounter Visit Diagnoses Diagnosis Infection Upper Respiratory - Primary documented in this encounter Additional Health Concerns Infection Onset Date Last Indicated Resolved Time COVID19 Pending 01/24/2020 01/24/2020 01/25/2020 12:58 AM CDT Assessment Noted Time PHQ-9 Depression Total Score: 18 04/28/2018 11:27 AM C DT documented as of this encounter Care Teams Filter Cloth Maker Relationship Specialty Start Date End Date Wariboko, Chris I., M.B.B.S., M.D. PCP - General Family Medicine 01/10/20 05/21/[address] [place] [address] [place] [phone] documented as of this encounter
--- OUTSIDE RECORDS SUMMARY | 2022-05-28 07:19 | XMS_ITS | Encounter Summary ---
:1945 Author Organization [facility] Address [address] [place] [address] Care Team Providers Name Role Phone Chris Billings M.D. Primary Care Provider [phone] Encounter Details Date Type Department Care Team Description 01/13/2020 Hospital Encounter Department of Chris Billings more Mellitus Laboratory Medicine Lorri Shen, Type 2 (HCC) in [place] [address] [facility] [place] [phone] Social History Tobacco Use Types Packs/Day [...] do you attend latter-day or Never 2021 gnosticist services? Do you [...] completed or the highest Martin, MEd, BODY DESIGNER, CAY[place]) degree you have received? Sex [...] once Atherosclerotic Heart for 1 dose. 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 6 [...] by mouth tabletIndications: daily. Atherosclerotic Heart Disease [place] Coronary Artery With [...] Mellitus Results for this CDT Type 2 ([facility]) procedure are i n the [...] Code Phon e Number [facility]- [address] [place] [address] [place] [place] [address] System in [place] [address] documented in this encounter Visit Diagnoses Diagnosis Diabetes Mellitus Type 2 (HCC) documented in this encounter Additional Health Concerns Assessment Noted Time PHQ-9 Depression Total Score: 18 04/28/2018 11:27 AM C DT documented as of this encounter Care Teams Property Loss Insurance Claim Adjuster Relationship Specialty Start Date End Date Chris Billings M.B.B.S., M.D. PCP - General Family Medicine 01/10/20 05/21/[address] [place] [address] [place] [phone] documented as of this encounter
--- OUTSIDE RECORDS SUMMARY | 2022-05-28 07:19 | XMS_ITS | Encounter Summary ---
:1945 Author Organization [facility] Address [address] [place] [address] Care Team Providers Name Role Phone Ewa Alejandro M.D. 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 [facility] Procedures ECG 12 Lead [address] [place], [place] [address] Referral ID Status Reason Start Date Expiration Date Visits Requ ested Visits Authorized [id number] Closed 12/16/2019 12/15/2020 1 1 Outpatient (Routine) - Closed Specialty Diagnoses / Procedures Referred By Contact Refer red To Contact Pulmonary Medicine Ailyn Sims [place] M.D. [address] [place] [address] Referral ID Status Reason Start Date Expiration Date Visits Requ ested Visits Authorized [id number] Closed 12/15/2019 12/14/2020 1 1 Reason for Visit Outpatient (Routine) - Closed Specialty Diagnoses / Procedures Referred By Contact Refer red To Contact Pulmonary Medicine Ailyn Sims [place] M.D. 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 Sex Assigned [...] mouth 0 10/1305/06/2020 100 mg tablet daily. tbgwks-trfwjqxn-lvbvwqv Take 2 capsules by 240 capsule 3 [...] once Atherosclerotic Heart for 1 dose. Disease [place] Coronary Artery With Other Forms Angina Pectoris [...] by mouth tabletIndications: daily. 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 Formal pope-rp-zebb consultation and consideration of need for cavity at catheterization will be deferred for 3 months due to COVID-19 constraints and patient's relatively stable hemodynamics. Patient will followup with local MD/TOP LOADER in 2-4 weeks to finalize other non-pulmonary [...] Signature Ventricular Rate 66 BPM MUSE ECG/Min [place] Interval 158 ms MUSE QRSD Interval 96 ms MUSE QT Interval 444 ms MUSE QTC Interval 465 ms MUSE P [place] 2 degrees MUSE R [place] -61 degrees MUSE T Wave [place] -25 degrees MUSE Specimen Anatomical Collection Method Collection Time Receive d Time (Source) Location / / Volume Laterality 01/20/2020 8:49 AM 0 9:01 CDT AM CDT Impressions MUSE - 01/20/2020 9:01 AM CDT Normal sinus rhythm Left anterior fascicular block Nonspecific ST and T wave abnormality When compared with ECG of 20-OCT-2019 13 :23, QRS axis has changed Reviewed by SEAN eJsus Narrative This result has an attachment that [...] encounter Visit Diagnoses Diagnosis Atherosclerotic Heart Disease [place] Cor onary Artery With Other Forms Angina Pectoris (Angina Equivalent) (HCC) - Primary Diabetes Mellitus Type 2 (HCC) Hypertension Essential Primary Fatigue Asthma Extrinsic Moderate (HCC) Atherosclerotic Heart Disease [place] Cor onary Artery With Other Forms Angina Pectoris (Angina Equivalent) (HCC) documented in this encounter Additional Health Concerns Assessment Noted Time PHQ-9 Depression Total Score: 18 04/28/2018 11:27 AM C DT documented as of this encounter Care Teams Radio Tower Technician Relationship Specialty Start Date End Date Ewa Alejandro M.D. PCP - General 03/13/17 01/09/20 [address], [place] [phone] documented as of this encounter
--- OUTSIDE RECORDS SUMMARY | 2022-05-28 07:19 | XMS_ITS | Encounter Summary ---
:1945 Author Organization [facility] Address [address] [place] [address] Care Team Providers Name Role Phone Chris Billings M.D. Primary Care Provider [phone] Encounter Details Date Type Department Care Team Description 01/21/2020 Orders Only Department of [facility] Chris Billings I., [facility] 300 [facility] [address] [place], [place] [phone] (Wo rk) Social History Tobacco Use Types [...] do you attend alevism or Never 2021 holiness services? Do you [...] completed or the highest Martin, MEd, RESPIRATORY DIRECTOR, [place]) degree you have received? Sex [...] documented as of this encounter Care Teams Administrative Receptionist Relationship Specialty Start Date End Date Chris Billings M.B.BMauroSMauro, MDahlia. PCP - General Family Medicine 01/10/20 05/21/[address] [place] [address] [place] [phone] documented as of this encounter
--- OUTSIDE RECORDS SUMMARY | 2022-05-28 07:19 | XMS_ITS | Encounter Summary ---
:1945 Author Organization [facility] Address [address] [place] [address] Care Team Providers Name Role Phone Chris Billings M.D. Primary Care Provider [phone] Reason for Visit Reason Comments COVID Nurse Line Encounter Details Date Type Department Care Team Description 01/24/2020 Clinical Communication Department of DHRUV Bañuelos Nurse Line Cardiovascular Koko Champagne M.D. Diseases in [address] [address] [place], [place] [phone] [address] (Work) [phone] Social History Tobacco Use Types Packs/Day Years [...] do you attend synagogue or Never 2021 muslim services? Do you [...] have completed or the highest Martin, MEd, GALLERY OR MUSEUM TECHNICIAN, CAYDEN) degree you have received? Sex [...] to be swabbed for COVID-19, sent to [place], [place] . Because testing is recommended, we will have to delay your appointment for at least 14 days. Care Points provided: STANDARD PRECAUTIONS FOR ALL PATIENTS: Wash hands often with soap and water for at least 20 seconds, especially after blowing your nose, coughing, sneezing, or having been in a public place. If soap and water aren't available, use a hand director of ancillary services that contains at least 60% alcohol. Avoid [...] essential items or medical care). Educational Resource: https://www.cdc.gov/coronavirus/2019-ncov/qohjssg-slpqitc-unvz/index.html RECOMMENDATIONS TESTING CRITERIA IS MET: Stay home [...] or 65 years and older. Go to [facility] emergency department if any of the following occur: 1) New shortness of breath at rest, 2) Pain, pressure or tightness unrelated to coughing in the chest, jaw or arm, 3) Newly confused or unable to stay alert and awake. Notify primary care provider if any new or worsening symptoms. Education Resources: https://www.cdc.gov/coronavirus/2019-ncov/gk-chr-uki-sick/soxab-zohv-nvpg.html Education: patient/caregiver Patient/caregiver able to teach back Patient agreeable to plan of care: Yes The following references were used: [facility] novel coronavirus (COVID- 19) resources Nursing [...] Monserrat [facility] LAB SCHEDULING Scheduling Contact Number:[phone] documented in this encounter Plan of Treatment Not on filedocumented as of this encounter Visit Diagnoses Not on filedocumented in this encounter Additional Health Concerns Infection Onset Date Last Indicated Resolved Time COVID19 Pending 01/24/2020 01/24/2020 01/25/2020 12:58 AM CDT Assessment Noted Time PHQ-9 Depression Total Score: 18 04/28/2018 11:27 AM C DT documented as of this encounter Care Teams Supervisor Electric Relationship Specialty Start Date End Date Chris Billings M.B.B.S., M.D. PCP - General Family Medicine 01/10/20 05/21/[address] [place] [address] [place] [phone] documented as of this encounter
--- OUTSIDE RECORDS SUMMARY | 2022-05-28 07:19 | XMS_ITS | Encounter Summary ---
:1945 Author Organization [facility] Address [address] [place] [address] Care Team Providers Name Role Phone Chris Billings M.D. Primary Care Provider [phone] Encounter Details Date Type Department Care Team Description 01/07/2020 Clinical Communication [facility] [place] [address] [place] [phone] Social History Tobacco Use Types Packs/Day Years [...] do you attend baptism or Never 2021 hinduism services? Do you [...] have completed or the highest Martin, MEd, PVC MONITOR, CAYDEN) degree you have received? Sex [...] his primary provider place a referral to [facility] to repeat A Stress Echo and also a Cardiopulmonary (V02) Exercise test after being on new cardiology medications for 1 month following abnormal findings on 11/2019. Please call patient once referral is complete so he can contact [facility] to schedule testing PLAN Disposition/Recommendation: notified provider and awaiting recommendations Information/Education: patient/caller able to teach back Caller agreeable to plan of care: yes The following references were used: other per patient Telephone Encounter - Shanon Glover - 01/07/2020 8:53 AM CDT Reason for Communication: Patient is calling in and stated he was seen in [place] in [facility] and that he was told to [...] as of this encounter Care Teams Gold Buyer Relationship Specialty Start Date End Date Chris Billings M.B.B.S., MDahlia. PCP - General Family Medicine 01/10/20 05/21/[address] [place] [address] [place] [phone] documented as of this encounter
--- OUTSIDE RECORDS SUMMARY | 2022-05-28 07:19 | XMS_ITS | Encounter Summary ---
:1945 Author Organization [facility] Address [address] [place] [address] Care Team Providers Name Role Phone Ewa Alejandro M.D. Primary Care Provider [phone] Reason for Referral Outpatient (Routine) - Closed Specialty Diagnoses / Procedures Referred By Contact Refer red To Contact Diagnoses Chronic Cough Shortness Of Breath Asthma Extrinsic Moderate (HCC) Ailyn Sims M.D. [facility] Procedures Cardiopulmonary (VO2) Exercise Test [address] [place], [place] [address] Referral ID Status Reason Start Date Expiration Date Visits Requ ested Visits Authorized [id number] Closed 12/15/2019 12/14/2020 1 1 Outpatient (Routine) - Closed Specialty Diagnoses / Procedures Referred By Contact Refer anna To Contact Diagnoses Chronic Cough Shortness Of Breath Asthma Extrinsic Moderate (HCC) Ailyn Sims M.D. Procedures Echo Stress [address] [place], [place] [address] Referral ID Status Reason Start Date Expiration Date Visits Requ ested Visits Authorized [id number] Closed 12/15/2019 12/14/2020 1 1 Reason for Visit Outpatient (Routine) - Closed Specialty Diagnoses / Procedures Referred By Contact Refer red To Contact Diagnoses Chronic Cough Shortness Of Breath Asthma Extrinsic Moderate (HCC) Ailyn Sims M.D. Procedures Echo Stress [address] [place] [phone] Referral ID Status Reason Start Date Expiration Date Visits Requ ested Visits Authorized [id number] Closed 12/15/2019 12/14/2020 1 1 Encounter Details Date Type Department Care Team Description 12/15/2019 Hospital Department of Ailyn Sims Cough Ch ronic; Encounter Cardiovascular [place]o Duque Shortness Of Breath; Diseases in [address] [place] [address] Asthma Extrinsic Moderate (HCC) [place], [place] [address] [facility] [address] [place], [place] [phone] (Work) [phone] Social History Tobacco Use Types Packs/Day Years [...] do you attend congregation or Never 2021 restoration services? Do you [...] have completed or the highest Martin, MEd, ACROBATIC RIGGER, CAYDEN) degree you have received? Sex [...] mouth 0 10/1305/06/2020 100 mg tablet daily. [id number] Take 2 capsules by 240 capsule 3 [...] 05/01/2020 reader (FREESTYLE ILEANA 14 DAY READER) [facility] flash glucose sensor [...] (HCC) CARDIOPULMONARY (VO2) Routine 12/15/2019 3:33 Cough Drill Operator Pneumatic hilary Results for this EXERCISE TEST PM CDT Shortness Of procedure are in Breath the results Asthma Extrinsic section. Moderate (HCC) documented in this encounter Results ECHO STRESS 2D WITH COLOR, LIMITED DOPPLER AND CONTRAST (12/15/2019 3:33 PM CDT) [facility] Method Time Signature Ejection Fraction 45 [...] effusion. For the complete report, see the [employer] Documents. Narrative 12/15/2019 4:55 PM CDT For the complete report, see the [employer] Documents. Final Impressions 1. Exercise echocardiogram positive [...] 8. O2 uptake data detailed in the [facility] Medical Record (Cardiopulmonary (VO2) Exercise Test). 9. [...] 8. O2 uptake data detailed in the [facility] Medical Record (Cardiopulmonary (VO2) Exercise Test). 9. [...] documented as of this encounter Care Teams Hogshead Filler Relationship Specialty Start Date End Date Ewa Alejandro M.D. PCP - General 03/13/17 01/09/[address] [phone] documented as of this encounter
--- OUTSIDE RECORDS SUMMARY | 2022-05-28 07:19 | XMS_ITS | Encounter Summary ---
:1945 Author Organization [facility] Address [address] [place] [address] Care Team Providers Name Role Phone Chris Billings M.D. Primary Care Provider [phone] Encounter Details Date Type Department Care Team Description 01/17/2020 Clinical Communication Department of Koko Bañuelos Cardiovascular Diseases [place] Champagne in [address] [place] [phone] Social History Tobacco Use Types [...] do you attend gnosticist or Never 2021 yarsani services? Do you [...] completed or the highest Martin, MEd, MANAGER COUNCIL, CAYDEN) degree you have received? Sex Assigned at Date Recorded Male 05/21/2018 2:34 PM CDT documented as of this encounter Miscellaneous Notes Telephone Encounter - Starr Hernandez R.N. - 01/17/2020 2:33 PM CDT INFORMATION DISCUSSED Spoke to patient via telephone call. Patient and technical publications writer reviewed appointments he had with Dr. Sims and Dr. Billings. Hospice Superintendent reviewed the notes. Patient thought he was to have a Echocardiogram complete. The orders in the system are for Cardiology consult and Electrocardiogram and the notes from the doctors visits reflect Cardiology consult and Electrocardiogram.. Patient transferred to Scheduling to schedule Cardiology consult and Electrocardiogram. ?? PLAN - see above ?? Disposition/Recommendation: Patient repeated directions to technical publications writer. Education: patient/caller able to teach back Caller agreeable to plan of care: yes The following references were used: provider Dr. Sims and Dr. Billings Telephone Encounter - Awa Parham - 01/17/2020 9:48 AM CDT Reason for Communication: Patient is returning call to [facility] Current Can Nursing/Provider leave a detailed [...] as of this encounter Care Teams Master Esthetician Relationship Specialty Start Date End Date Chris Billings M.B.B.S., M.D. PCP - General Family Medicine 01/10/20 05/21/[address] [place] [address] [place] [id number] documented as of this encounter
--- OUTSIDE RECORDS SUMMARY | 2022-05-28 07:19 | XMS_ITS | Encounter Summary ---
:1945 Author Organization [facility] Address [address] [place] [address] Care Team Providers Name Role Phone Ewa Alejandro M.D. Primary Care Provider [phone] Encounter Details Date Type Department Care Team Description 12/15/2019 Diagnostic Division of Pulmonary Sims, Ailyn Duque, Cough Chronic; Medicine in M.D. Shortness Of Breath; [place], [place] [address] [facility] Asthma Extrinsic Moderate (HCC) [address] [place] [phone] Social History Tobacco Use Types Packs/Day Years [...] you attend oriental orthodox or Never 2021 mu-ism services? Do you [...] completed or the highest Martin, MEd, SERVICE CENTER APPRAISER, CAYDEN) degree you have received? Sex [...] Exhaled Nitric Oxide (12/15/2019 9:13 AM CDT) [facility] gist Method Time Signature Exhaled NO 64 [...] documented as of this encounter Care Teams Impress Associate Relationship Specialty Start Date End Date Ewa Alejandro M.D. PCP - General 03/13/17 01/09/[address] [place] [address] documented as of this encounter
--- OUTSIDE RECORDS SUMMARY | 2022-05-28 07:19 | XMS_ITS | Encounter Summary ---
:1945 Author Organization [facility] Address [address] [place] [address] Care Team Providers Name Role Phone Chris Billings M.D. 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 [facility] Cardiovascular Disease [place] [address] [place] [address] Referral ID Status Reason Start Date Expiration Date Visits Requ ested Visits Authorized [id number] Closed 01/12/2020 01/11/2021 1 1 Encounter Details Date Type Department Care Team Description 01/20/2020 Comprehensive Visit Department of Christopher Bañuelosrotic Heart Cardiovascular Koko Champagne Disease Nativ e Diseases in [place] Coronary Artery With [place] [address] Other Forms Angina [address] Pectoris (Angina [place], [facility], Equivalent) (HC C) [phone] [place] [phone] Social History Tobacco Use Types Packs/Day [...] do you attend holiness or Never 2021 holiness services? Do you [...] completed or the highest Martin, MEd, CERTIFIED MARINE MECHANIC, CAYDEN) degree you have received? Sex [...] quit 1979. 8. Asthma, mild. Seen by supervisory historian 11/2019. 9. History of pancreatitis. - CT [...] as low-sodium diet. We recommended resumption of [place] 3 fish oil to improve his triglycerides. [...] provider or endocrinology. Continue management asthma with supervisory historian. Pancreatitis and anemia with primary care provider. 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 CARDIOLOGY CONSULTATION Location: [facility]. Referring Provider: Chris Billings M.B.B.S., M.D. SUBJECTIVE CHIEF COMPLAINT/REASON FOR CONSULT Follow-up (stress echo) HISTORY OF PRESENT ILLNESS Mr. Jonnathan Costa is a very pleasant 74 y.o. male [facility], shortness [...] kylie wore and was exposed to Agent [place], 70% disabled. Cardiovascular Risk Factors: 1. Smoking [...] mouth daily. ??? flash glucose scanning reader (wriplSTYLE ILEANA 14 DAY READER) misc Use as [...] g by mouth daily. Not currently on [place] 3 fish oil, metformin short-acting diltiazem or [...] Master's degree (e.g., MA, MS, Martin, MEd, CERTIFIED MARINE MECHANIC, CAYDEN) Occupational History Employer: RETIRED Social [...] week Gets together: Twice a week Attends holiness service: 1 to 4 times per year [...] ??? Ventricular Rate ECG/Min 01/20/2020 66 ??? NJ Interval 01/20/2020 158 ??? QRSD Interval 01/20/2020 96 ??? QT Interval 01/20/2020 444 ??? QTC Interval 01/20/2020 465 ??? P [place] 01/20/2020 2 ??? R [place] 01/20/2020 -61 ??? T Wave [place] 01/20/2020 -25 Hospital Outpatient Visit on 01/13/2020 [...] 12/15/2019 2.62 ??? FEV1/FVC 12/15/2019 67.58 ??? ORH42-73% 12/15/2019 1.41 ??? PEF PRE 12/15/2019 7.01 ??? FET PRE 12/15/2019 12.56 ??? DLCO 12/15/2019 17.97 ??? VA 12/15/2019 6.35 ??? H6QodBqik 12/15/2019 96.00 ??? PulseRest 12/15/2019 85.00 ??? E9NyfZujp 12/15/2019 93.00 ??? PulseExer 12/15/2019 103.00 ??? [...] 39 ??? ENOComment 12/15/2019 Patient takes Albuterol, [facility] Outpatient Visit on 11/18/2019 Component [...] ??? Ventricular Rate ECG/Min 10/20/2019 73 ??? NJ Interval 10/20/2019 142 ??? QRSD Interval 10/20/2019 110 ??? QT Interval 10/20/2019 416 ??? QTC Interval 10/20/2019 459 ??? P [place] 10/20/2019 35 ??? R [place] 10/20/2019 -40 ??? T Wave [place] 10/20/2019 48 There may be more visits [...] acute radiographic abnormality. The ASCVD Risk score ([place] Jr., et al., 2013) failed to calculate for the following reasons: The patient has a prior CO or stroke diagnosis Pertinent cardiac (or related) [...] for this EGFR, S/P AM CDT Disease [place] Coronary proc edure are in Artery With Other Forms the results Angina Pectoris (Angina sect ion. Equivalent) (HCC) documented in this encounter Results (TTE) 2D ECHO DOPPLER COLOR (04/17/2020 10:06 AM CDT) [facility] gist Method Time Signature Ejection Fraction 42 [...] effusion. For the complete report, see the [employer] Documents. Narrative 04/17/2020 1:23 PM CDT For the complete report, see the [employer] Documents. Final Impressions 1. Mildly enlarged left [...] 04/17/2020 For the complete report, see the [employer] Documents. Final Impressions 1. Mildly enlarged left [...] Tomography, Computed Thoracic ARZ LOS, Cardiovascular FLA Logna ography LOS Specimen (Source) Anatomical Collection Method [...] , this study is being sent to [employer] for coronary FFRct analysis. ??FFRct res ults [...] , this study is being sent to [facility] for coronary FFRct analysis. FFRct resul ts will be reported separately when analysis by [facility] is complete Koko Bañuelos M.D. IMG CT PROCEDURES (ABNORMAL) Creatinine with Estimated GFR (01/20/2020 10:52 AM CDT) P athologist Signature Creatinine 1.27 0.74 - 01/20/2020 [place] 1.35 mg/dL 11:32 AM CDT eGFR-Black/Afric 63 >=60 01/20/2020 [place] an [place] mL/min/BSA 11:32 AM CDT Comment: ----ADDITIONAL INFORMATION---- Estimated GFR calculated using the 2009 CKD_EPI creatinine equation. eGFR Non-Black/ 55 (L) >=60 mL/min/BSA 01/20/2020 11:32 AM CDT [place] Comment: ----ADDITIONAL INFORMATION---- Estimated GFR calculated using the 2009 CKD_EPI creatinine equation. Specimen Anatomical Collection Method Collection Time Receive d Time (Source) Location / / Volume Laterality Blood (Blood, 01/20/2020 10:52 01/20/2020 Venous) AM CDT 11:00 AM CDT Koko Bañuelos M.D. LAB BLOOD ADD-ON Performing Organization Address City/State/ZIP Code Phon e Number [employer]- [address] [place] [address] [place] [address] System in [place] [address] documented in this encounter Visit Diagnoses Diagnosis Atherosclerotic Heart Disease [place] Cor onary Artery With Other Forms Angina Pectoris (Angina Equivalent) (HCC) Atherosclerotic Heart Disease [place] Cor onary Artery With Other Forms Angina Pectoris (Angina Equivalent) (HCC) Atherosclerotic Heart Disease [place] Cor onary Artery With Other Forms Angina Pectoris (Angina Equivalent) (HCC) documented in this encounter Additional Health Concerns Assessment Noted Time PHQ-9 Depression Total Score: 18 04/28/2018 11:27 AM C DT documented as of this encounter Care Teams Pipe Insulator Helper Relationship Specialty Start Date End Date Chris Billings M.B.B.S., M.D. PCP - General Family Medicine 01/10/20 05/21/[address] [place] [address] [place] [phone] documented as of this encounter
--- OUTSIDE RECORDS SUMMARY | 2022-05-28 07:19 | XMS_ITS | Encounter Summary ---
:1945 Author Organization [facility] Address [address] [place] [address] Care Team Providers Name Role Phone Ewa Alejandro M.D. Primary Care Provider [phone] Reason for Visit Reason Comments Allergy Testing skin testing Encounter Details Date Type Department Care Team Description 12/15/2019 Clinical Support Division of Andres Sims M.D. [address] [place] [phone] Cough Chronic; Allergic Diseases Katerin Rasmussen, RMauroNMauro [address] [place] [phone] Shortness Of Breath; in [place], Deena Cai R.N. Asthma Extrinsic Moderate ([facility]) [address] [phone] Social History Tobacco Use Types Packs/Day Years [...] do you attend spiritism or Never 2021 mandaen services? Do you [...] have completed or the highest Martin, MEd, WHITE SUGAR PAN TANK OPERATOR, CAYDEN) degree you have received? Sex Assigned at Date Recorded Male 05/21/2018 2:34 PM CDT documented as of this encounter Procedure Notes Josiah Ocasio M.D. - 12/15/2019 12:00 PM CDTAssociated Order(s): ALI BASIC SKIN TEST; ALI NORTHERN SKIN TEST Panel Skin Tests Clinical Support from 12/15/2019 in Division of Allergic Diseases in [place], [place] Controls Prick Control 0 Histamine (15 min W/F) 5x6f Glycerine (15 min W/F) 0 Basic Panel Cat Hair 0 Cockroach mix (Romanian & Filipino) 0 Dog AP 0 D.F. Mite 5x5f [...] White 0 Shashank, White 0 Birch 0 Terrell, Red 0 [place], Eastern 0 Elm, Romanian 0 Maple 0 [place], Black 0 [place] 0 [place], White 0 [place], Romanian 0 Bermuda 0 Kentucky Blue 0 Orchard 0 Zhang 0 Kochia 0 Garcia's Quarters 0 Page Elder, Burweed 0 Mugwort, Common 0 Plantain, Cuban 0 Rough Pigweed 0 [place] Timorese thistle 0 Short Ragweed 0 [place], Sheep Red 0 Skin test positive. Clinical correlation recommended and allergy consult, if clinically indicated. documented in this encounter Plan of Treatment Not on filedocumented as of this encounter Procedures Procedure Name Priority Date/Time Associated Diagnosis Comme nts ALI NORTHERN SKIN Routine 12/15/2019 12:00 PM Cough Hearing And Speech Assistant hilary Results for this TEST CDT Shortness [...] in Di vision of Allergic Diseases in [place], [place] Controls Prick Control ??0 Histamine (15 min W/F) ??5x6f Glycerine (15 min W/F) ??0 Basic Panel Cat Hair ??0 Cockroach mix (Romanian & Filipino) ??0 Dog AP ??0 D.F. Mite ??5x5f D. P Mite ??6x7f Horse ??0 Alternaria Alternata ??0 Aspergillus Fumigatus ??0 Bipolaris Sorokiniana ??0 Chaetomium Globosum ??0 Curvularia Spicifera (Drechstera Spidfer a) ??0 Epicoccum ??0 Fusarium ??0 Geotrichum ??0 Helminthosporium ??0 Hormodendrum/Clad (Cladostorium Cladospo rioides) ??0 Mucor Racemosus ??0 Penicillium Mix ??0 Phoma Herbarum ??0 Pullularia ??0 Rhizopus Stolonifer ??0 Stemphylium Solani ??0 Northern Panel [place], White ??0 Shashank, White ??0 Birch ??0 Terrell, Red ??0 [place], Eastern ??0 Elm, Romanian ??0 Maple ??0 [place], Black ??0 [place] ??0 [place], White ??0 [place], Romanian ??0 B[place] ??0 [place] Blue ??0 Orchard ??0 Zhang ??0 Kochia ??0 Garcia[place] Quarters ??0 Page Elder, Burweed ??0 Mugwort, Common ??0 Plantain, Cuban ??0 Rough Pigweed ??0 [place]se thistle ??0 Short Ragweed ??0 [place], Sheep Red ??0 Skin test positive. Clinical [...] in Di vision of Allergic Diseases in [place], [place] Controls Prick Control ??0 Histamine (15 min W/F) ??5x6f Glycerine (15 min W/F) ??0 Basic Panel Cat Hair ??0 Cockroach mix (Romanian & Filipino) ??0 Dog AP ??0 D.F. Mite ??5x5f [...] White ??0 Shashank, White ??0 Birch ??0 Terrell, Red ??0 [place], Eastern ??0 Elm, Romanian ??0 Maple ??0 [place], Black ??0 [place] ??0 [place], White ??0 [place], Romanian ??0 Berm[place] ??0 [place] Blue ??0 Orchard ??0 Zhang ??0 Kochia ??0 Garcia's Quarters ??0 Page Elder, Burweed ??0 Mugwort, Common ??0 Plantain, Cuban ??0 Rough Pigweed ??0 [place] Timorese thistle ??0 Short Ragweed ??0 [place], Sheep Red ??0 Skin test positive. Clinical [...] of this encounter Care Teams Sales Operations Lead Relationship Specialty Start Date End Date Ewa Alejandro M.D. PCP - General 03/13/17 01/09/[address], [place] [address] documented as of this encounter
--- OUTSIDE RECORDS SUMMARY | 2022-05-28 07:19 | XMS_ITS | Encounter Summary ---
:1945 Author Organization [facility] Address [address] [place] [address] Care Team Providers Name Role Phone Chris Billings M.D. 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 [facility] Procedures ECG 12 Lead [address] [place] [address] Referral ID Status Reason Start Date Expiration Date Visits Requ ested Visits Authorized [id number] Closed 12/16/2019 12/15/2020 1 1 Encounter Details Date Type Department Care Team Description 01/20/2020 Hospital Department of Ailyn Sims Atherosc lerotic Heart Encounter Laboratory [place] Disease [place] [facility] in [address] Coronary Artery With [place], [place], [place] Other Forms An maren [place] [phone] Pectoris (Angina [address] [phone] Equivalent) ([facility]) [place] (Work) [address] [phone] Social History Tobacco Use Types Packs/Day Years [...] do you attend yazidi or Never 2021 oriental orthodox services? Do [...] completed or the highest Martin, MEd, RN PRIOR AUTHORIZATION, CAYDEN) degree you have received? Sex Assigned [...] once Atherosclerotic Heart for 1 dose. 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 Equivalent) ([facility]) documented in this encounter Results ECG 12 Lead (01/20/2020 8:49 AM CDT) P athologist Signature Ventricular Rate 66 BPM MUSE ECG/Min AK Interval 158 ms MUSE QRSD Interval 96 ms MUSE QT Interval 444 ms MUSE QTC Interval 465 ms MUSE P Evergreen 2 degrees MUSE R [place] -61 degrees MUSE T Wave [place] -25 degrees MUSE Specimen Anatomical Collection Method [...] encounter Visit Diagnoses Diagnosis Atherosclerotic Heart Disease [place] Cor onary Artery With Other Forms Angina Pectoris (Angina Equivalent) (HCC) documented in this encounter Additional Health Concerns Assessment Noted Time PHQ-9 Depression Total Score: 18 04/28/2018 11:27 AM C DT documented as of this encounter Care Teams Office Sweeper Relationship Specialty Start Date End Date Chris Billings M.B.B.S., M.D. PCP - General Family Medicine 01/10/20 05/21/[address] [place] [address] [place] [phone] documented as of this encounter
--- OUTSIDE RECORDS SUMMARY | 2022-05-28 07:19 | XMS_ITS | Encounter Summary ---
:1945 Author Organization [facility] Address [address] [place] [address] Care Team Providers Name Role Phone Ewa Alejandro M.D. Primary Care Provider [phone] Reason for Visit Outpatient (Routine) - Closed Specialty Diagnoses / Referred By Contact Referred To Contact Procedures Allergy and Immunology Diagnoses Chronic Cough Shortness Of Breath Asthma Extrinsic Moderate (HCC) [facility] [place] [address] [place] [address] Referral ID Status Reason Start Date Expiration Date Visits Requ ested Visits Authorized [id number] Closed 12/15/2019 12/14/2020 1 1 Encounter Details Date Type Department Care Team Description 12/16/2019 Comprehensive Visit Division of Karley Gillespie Asthma Mild Persistent (HCC) (Primary Dx); Allergic Diseases [place] Strong Abnormal Allergy Skin Test; in [address] Hypertension Essential Primary; [place], [place] Diabetes Mellitus Type 2 Wit h Diabetic Neuropathy (HCC) [address] [facility] [address] [place], [place] [phone] (Work) [phone] Social History Tobacco Use Types Packs/Day Years [...] do you attend presybeterian or Never 2021 pentecostalism services? Do you belong to any clubs or No 10/09/2021 organizations such as presybeterian groups, unions, fraTour Raiser or athletic groups, or school groups? How [...] completed or the highest Martin, MEd, SENIOR INFORMATION SECURITY ANALYST, CAYDEN) degree you have received? Sex [...] male remote smoker with history of Agent [place] exposure in 1967, untreated sleep apnea, diabetes, [...] elevated at 64 ppb. [facility] yesterday was positive to dust mite, negative to trees, grasses, weeds, molds, cat, dog. Review of environmental history is significant for the absence of any secondhand smoke exposure. There are no pets in the home environment. Bedding is washed at least once weekly. There is snpi-nd-dulfjfqcysbmv in the bedroom. MEDICAL HISTORY Past Medical [...] injection LW Addl Instr:Indicated for: Diabetes ??? isclun-aeohpxjs-rfhfiww (CREON) 6,000-19,000-30,[address] capsule Take [...] documented as of this encounter Care Teams Drug Abuse Counselor Relationship Specialty Start Date End Date Ewa Alejandro M.D. PCP - General 03/13/17 01/09/[address] [phone] documented as of this encounter
--- OUTSIDE RECORDS SUMMARY | 2022-05-28 07:19 | XMS_ITS | Encounter Summary ---
:1945 Author Organization [facility] Address [address] [place] [address] Care Team Providers Name Role Phone Chris Billings M.D. Primary Care Provider [phone] Reason for Visit Reason Comments Atherosclerotic Heart Disease [place] Coronary Artery O rder for [facility] With Ot Encounter Details Date Type Department Care Team Description 01/20/2020 Clinical Department of Pessmeryl, Atheroscleroti c Heart Communication Cardiovascular Koko S, Disease Yakelin ve Diseases in [place] Coronary Artery With [address] [place] (Order for [place] [address] [facility]) [place], [address] [place] [phone] [address] Social History Tobacco Use Types Packs/Day [...] do you attend scientologist or Never 2021 latter day services? Do [...] have completed or the highest Martin, MEd, REHAB CARE ASSISTANT, CAYDEN) degree you have received? Sex Assigned at Date Recorded Male 05/21/2018 2:34 PM CDT documented as of this encounter Miscellaneous Notes Telephone Encounter - Kkoo Bañuelos M.D. - 01/20/2020 3:30 PM CDT [...] with IV Contrast scheduled for. Thank you, [facility] Online Services for Referring Providers Appointment Office documented in this encounter Plan of Treatment Not on filedocumented as of this encounter Visit Diagnoses Not on filedocumented in this encounter Additional Health Concerns Assessment Noted Time PHQ-9 Depression Total Score: 18 04/28/2018 11:27 AM C DT documented as of this encounter Care Teams Anchorer Relationship Specialty Start Date End Date Chris Billings M.B.B.S., M.D. PCP - General Family Medicine 01/10/20 05/21/[address] [place] [address] [place] [phone] documented as of this encounter
--- OUTSIDE RECORDS SUMMARY | 2022-05-28 07:19 | XMS_ITS | Encounter Summary ---
:1945 Author Organization [facility] Address [address] [place] [address] Care Team Providers Name Role Phone Chris Billings M.D. Primary Care Provider [phone] Encounter Details Date Type Department Care Team Description 01/13/2020 Hospital Encounter Department of Chris Billings more Mellitus Laboratory Medicine Lorri Shen, Type 2 (HCC) in [place] [address] [facility] [place] [phone] Social History Tobacco Use Types Packs/Day [...] completed or the highest Martin, MEd, ASSEMBLER SKYLIGHTS, CAYDEN) degree you have received? Sex Assigned [...] once Atherosclerotic Heart for 1 dose. 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) flash glucose scanning Use as directed 1 each 0 09/18/20 18 05/01/2020 reader (FREESTYLE ILEANA 14 DAY READER) [facility] flash glucose sensor Use [...] 2 ([facility]), Hypertension Essential Primary lisinopril Take 1 tablet [...] Albumin, Random, Urine (01/13/2020 8:21 AM CDT) [facility] Method Time Signature Microalbumin 2002.0 mg/L 01/13/2020 [...] Phon e Number [facility]- [address] [place] [address] [facility] [place] [address] System in [place] [address] documented in this encounter Visit Diagnoses Diagnosis Diabetes Mellitus Type 2 (HCC) documented in this encounter Additional Health Concerns Assessment Noted Time PHQ-9 Depression Total Score: 18 04/28/2018 11:27 AM C DT documented as of this encounter Care Teams Appraiser Boats And Marine Relationship Specialty Start Date End Date Chris Billings M.B.B.S., M.D. PCP - General Family Medicine 01/10/20 05/21/[address] [place] [address] [place] [address] documented as of this encounter
--- OUTSIDE RECORDS SUMMARY | 2022-05-28 07:20 | XMS_ITS | Encounter Summary ---
:1945 Author Organization [facility] Address [address] [place] [address] Care Team Providers Name Role Phone Ewa Alejandro M.D. Primary Care Provider Encounter Details Date Type Department Care Team Description 10/28/2019 Clinical Communication Department of Family Kirill Torres [facility], Ewa Barclay, Clinic, in [place] [address] [place] [phone] Social History Tobacco Use Types Packs/Day Years [...] do you attend sabianism or Never 2021 jainism services? Do you [...] have completed or the highest Martin, MEd, ALARM INSTALLATION TECHNICIAN, CAYDEN) degree you have received? Sex Assigned at Date Recorded Male 05/21/2018 2:34 PM CDT documented as of this encounter Plan of Treatment Not on filedocumented as of this encounter Visit Diagnoses Not on filedocumented in this encounter Additional Health Concerns Assessment Noted Time PHQ-9 Depression Total Score: 18 04/28/2018 11:27 AM C DT documented as of this encounter Care Teams Senior Mechanical Design Engineer Relationship Specialty Start Date End Date Ewa Alejandro M.D. PCP - General 03/13/17 01/09/[address] [phone] documented as of this encounter
--- OUTSIDE RECORDS SUMMARY | 2022-05-28 07:20 | XMS_ITS | Encounter Summary ---
:1945 Author Organization [facility] Address [address] [place] [address] Care Team Providers Name Role Phone Ewa Alejandro M.D. Primary Care Provider [phone] Reason for Visit Outpatient (Routine) - Closed Specialty Diagnoses / Procedures Referred By Contact Refer red To Contact Nutrition Diagnoses Diabetes Mellitus Type 2 With Diabetic Neuropathy (HCC) Debbie Marquis M.D. [facility] [address] [place] [address] Referral ID Status Reason Start Date Expiration Date Visits Requ ested Visits Authorized [id number] Closed 10/21/2019 10/20/2020 1 1 Encounter Details Date Type Department Care Team Description 11/01/2019 Clinical Support Department of Debbie Marquis M.D . Diabetes Mellitus Nutrition in [facility], Alysha Arias R.N., [address] [address] Type 2 With Diabetic Alexia, Neuropathy (HCC ) [place] [address] [place] [phone] Social History Tobacco Use Types Packs/Day Years [...] do you attend islam or Never 2021 rastafarian services? Do you belong to any clubs or No 10/09/2021 organizations such as islam groups, unions, fraLaureate Pharma or athletic groups, or school groups? How [...] have completed or the highest Martin, MEd, CHRISTMAS TREE GROWER, CAYDEN) degree you have received? Sex Assigned at Date Recorded Male 05/21/2018 2:34 PM CDT documented as of this encounter Progress Notes Alysha oPmpa R.N. - 11/01/2019 3:00 PM CST SUBJECTIVE [...] Time spent with patient (minutes): 75 Minutes [facility]ER IM[facility] documented in this encounter Plan of Treatment Not on filedocumented as of this encounter Visit Diagnoses Diagnosis 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) documented in this encounter Additional Health Concerns Assessment Noted Time PHQ-9 Depression Total Score: 18 04/28/2018 11:27 AM C DT documented as of this encounter Care Teams Favor Maker Relationship Specialty Start Date End Date Ewa Alejandro M.D. PCP - General 03/13/17 01/09/20 [address] [phone] documented as of this encounter
--- OUTSIDE RECORDS SUMMARY | 2022-05-28 07:20 | XMS_ITS | Encounter Summary ---
:1945 Author Organization [facility] Address [address] [place] [address] Care Team Providers Name Role Phone Ewa Alejandro M.D. Primary Care Provider [phone] Reason for Referral Specialty Diagnoses / Procedures Referred By Contact Refer red To Contact Debbie Marquis M.D. [address] [address] Referral ID Status Reason Start Date Expiration Date Visits Requ ested Visits Authorized ECTOR OF AQUARIUM SPECIMENS Reason for Visit Outpatient (Routine) - Closed Specialty Diagnoses / Procedures Referred By Contact Refer red To Contact Endocrinology Diagnoses Diabetes Mellitus Type 2 With Diabetic Neuropathy (HCC) Keisha Lopez APRN, [facility] C.N.P., M.S.N. [address] [place] [phone] Referral ID Status Reason Start Date Expiration Date Visits Requ ested Visits Authorized [id number] Closed 10/11/2019 10/10/2020 1 1 Encounter Details Date Type Department Care Team Description 10/20/2019 Comprehensive Visit Division of Josselin Lopez APRN, C.N.P., M.S.N. [address] [place] [phone] 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) (Primary Dx); Endocrinology in Debbie Marquis M.D. Hyperlipidemia; [place], Pancreatitis Ch licolidya Recurrent (HCC); [place] Stroke Cerebrovascular Accid ent Personal History [address] [place] [phone] Social History Tobacco Use Types Packs/Day Years [...] do you attend nondenominational or Never 2021 methodist services? Do you [...] have completed or the highest Martin, MEd, KINDERGARTEN TUTOR, CAYDEN) degree you have received? Sex Assigned at Date Recorded Male 05/21/2018 2:34 PM CDT documented as of this encounter Patient Instructions Patient Debbie Reagan M.D. - 10/20/2019 2:45 PM CST 1. Lantus 30 units every night 2. NovoLog 10 units with each meal 3. Please check BS before each meal and at bedtime. Goal blood sugar between 100-150. 4. visual educator visit. 4. Office visit in 3 [...] your mealtime insulin based on the table. ECTOR OF AQUARIUM SPECIMENS documented in this encounter Progress Notes Debbie Marquis M.D. - 10/20/2019 2:45 PM CST [facility] Endocrinology, Diabetes, Metabolism and Nutrition Metabolic Clinic Date of Visit: 10/20/2019 Supervising independent consultant: Dr. Garcia Chief Complaint: Type 2 diabetes mellitus History of Present Illness Jonnathan Costa is a 74-year-old man who presents for evaluation of type 2 diabetes mellitus. He has a background of idiopathic, chronic calcific pancreatitis with exocrine insufficiency, hypertension, hyperlipidemia, and Agent [place] exposure. He was diagnosed with type 2 [...] tablet 11 ??? flash glucose scanning reader ([employer]STYLE ILEANA 14 DAY READER) misc Use as [...] injection LW Addl Instr:Indicated for: Diabetes ??? tcdrpm-lpeybsrc-pfmxzkx (CREON) 6,000-19,000-30,[address] capsule Take [...] INSERTION INTRAOCULAR LENS Left 04/2008 At the [place] ??? LASER OF PROSTATE W/ GREEN LIGHT PVP 08/28/2016 Greenlight photoselective vaporization of the prostate and cystoscopy with bladder biopsy and fulguration of a 2cm area; 08/28/[address] Prasanna Bernal at the [facility]. ??? TONSILLECTOMY ??? VASECTOMY Physical Examination [...] titrate over time for optimal control. - visual educator visit to review general Diabetes Education [...] your mealtime insulin based on the table. ECTOR OF AQUARIUM SPECIMENS Asher Garcia M.D. - 10/20/2019 2:45 PM [...] patient with and address all these recommendations. ECTOR OF AQUARIUM SPECIMENS documented in this encounter Plan of Treatment Scheduled Referrals Name Type Priority Associated Diagnoses Order S chedule Nutrition - Outpatient Referral Routine Diabetes Mellitus Exp ected: visual educator Type 2 With Diabetic visit (clinic) Neuropathy (HCC) (Approxim ate), Expires: 10/20/2020 documented as of this encounter Results C-Peptide (10/20/2019 12:54 PM COLLECTOR OF AQUARIUM SPECIMENS) P athologist Signature C-Peptide, S 2.2 1.1 - 4.4 10/20/2019 DTL ng/mL 5:16 PM COLLECTOR OF AQUARIUM SPECIMENS Specimen Anatomical Collection Method Collection Time Receive d Time (Source) Location / / Volume Laterality Blood (Blood, 10/20/2019 12:54 10/20/2019 4:24 Venous) PM COLLECTOR OF AQUARIUM SPECIMENS PM COLLECTOR OF AQUARIUM SPECIMENS Debbie Marquis M.D. LAB BLOOD ADD-ON Performing Organization Address City/State/ZIP Code Phon e Number [facility] - [address] [place], [place] [address] [facility] [place] [address] Laboratories-[facility] [address] (ABNORMAL) Lipid Panel (10/20/2019 12:54 PM COLLECTOR OF AQUARIUM SPECIMENS) P athologist Signature Cholesterol, 172 mg/dL 10/20/2019 DTL Total 5:16 PM COLLECTOR OF AQUARIUM SPECIMENS Comment: ----REFERENCE VALUE---- Desirable: < 200 Borderline high: 200 - 239 High: > or = 240 Triglycerides 214 (H) mg/dL 10/20/2019 5:16 PM COLLECTOR OF AQUARIUM SPECIMENS DTL Comment: ----REFERENCE VALUE---- Normal: <150 Borderline high: 150-199 High: 200-499 Very high: > or =500 Cholesterol, HDL, S 35 (L) >=40 mg/dL 10/20/2019 5:16 PM COLLECTOR OF AQUARIUM SPECIMENS DTL Calculated LDL 94 mg/dL 10/20/2019 5:16 PM COLLECTOR OF AQUARIUM SPECIMENS DT L Comment: ----REFERENCE VALUE---- Desirable: <100 Above Desirable: 100-129 Borderline high: 130-159 High: 160-189 Very high: > or =190 Cholesterol, Non-HDL, Calculated 137 mg/dL 020 5:16 PM COLLECTOR OF AQUARIUM SPECIMENS DTL Comment: ----REFERENCE VALUE---- Desirable: <130 Above Desirable: 130-159 Borderline high: 160-189 High: 190-219 Very high: > or =220 Specimen Anatomical Collection Method Collection Time Receive d Time (Source) Location / / Volume Laterality Blood (Blood, 10/20/2019 12:54 10/20/2019 4:24 Venous) PM COLLECTOR OF AQUARIUM SPECIMENS PM COLLECTOR OF AQUARIUM SPECIMENS Debbie Marquis M.D. LAB BLOOD ADD-ON Performing Organization Address City/State/ZIP Code Phon e Number [facility] - [address] [place] [phone] [facility] [place] [address] Laboratories-[facility] 200 [facility] documented in this encounter Visit Diagnoses [...] M.D. PCP - General 6/15/17 [address] [place] [address] documented as of this encounter
--- OUTSIDE RECORDS SUMMARY | 2022-05-28 07:20 | XMS_ITS | Encounter Summary ---
:1945 Author Organization [facility] Address [address] [place] [address] Care Team Providers Name Role Phone Ewa Alejandro M.D. Primary Care Provider [phone] Reason for Visit Reason Comments Treatment Questions Encounter Details Date Type Department Care Team Description 12/12/2019 Clinical Communication Division of Natasha Corrales ment Questions [facility] B, R.N. [facility] [place] [phone] [facility], in (Work) [place], [place] [address] [place] [address] Social History Tobacco Use Types Packs/Day Years [...] have completed or the highest Martin, MEd, AB INITIO ETL DEVELOPER, CAYDEN) degree you have received? [...] also because his granddaughter has been in [place] two weeks ago. His granddaughter has no [...] as of this encounter Care Teams Product Assurance Engineer Relationship Specialty Start Date End Date Ewa Alejandro M.D. PCP - General 03/13/17 01/09/[address] [place] [address] documented as of this encounter
--- OUTSIDE RECORDS SUMMARY | 2022-05-28 07:20 | XMS_ITS | Encounter Summary ---
:1945 Author Organization [facility] Address [address] [place] [address] Care Team Providers Name Role Phone Ewa Alejandro M.D. Primary Care Provider Encounter Details Date Type Department Care Team Description 10/27/2019 Clinical Communication Department of Family Kirill Torres [facility], Ewa Barclay, Clinic, in [place] [address] [place] [phone] Social History Tobacco Use Types Packs/Day Years [...] completed or the highest Martin, MEd, MOTORCYCLE DELIVERER, CAYDEN) degree you have received? Sex Assigned at Date Recorded Male 05/21/2018 2:34 PM CDT documented as of this encounter Miscellaneous Notes Telephone Encounter - Morelia Acuna L.P.N. - 10/28/2019 12:06 PM CST Patient in clinic at scheduling desk- inquiring scheduling for the Pulmonary testing. Patient to have this done at [facility]. Order will be faxed and patient scheduling will contact patient to set this up. INE II ENGRAVER Telephone Encounter - Sugey Guevara, CMauroMMauroAMauro - 10/27/2019 1:47 PM CST SUBJECTIVE CHIEF COMPLAINT / REASON FOR CALL No chief complaint on file. PLAN The following information was provided: No order in for pulmonary in [place] please place that order, patient is aware that once order is placed that [place] will call him to set up that appt Information/Education: patient/caller able to teach back The following references were used: none INE II ENGRAVER Telephone Encounter - Shanon Glover - 10/27/2019 [...] back. Name of Medication (if relevant): na INE II ENGRAVER documented in this encounter Plan of Treatment Not on filedocumented as of this encounter Visit Diagnoses Not on filedocumented in this encounter Additional Health Concerns Assessment Noted Time PHQ-9 Depression Total Score: 18 04/28/2018 11:27 AM C DT documented as of this encounter Care Teams Piping Manager Relationship Specialty Start Date End Date Ewa Alejandro M.D. PCP - General 03/13/17 01/09/[address] [phone] documented as of this encounter
--- OUTSIDE RECORDS SUMMARY | 2022-05-28 07:20 | XMS_ITS | Encounter Summary ---
:1945 Author Organization [facility] Address [address] [place] [address] Care Team Providers Name Role Phone Ewa Alejandro M.D. Primary Care Provider [phone] Reason for Referral Outpatient (Routine) - Closed Specialty Diagnoses / Procedures Referred By Contact Refer red To Contact Diagnoses Pancreatitis Chronic (HCC) Exocrine Pancreatic Insufficiency Keisha Bailey APRN, [facility] Procedures ECG 12 Lead C.N.P., M.S.N. 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 [address] [place] [phone] Referral ID Status Reason Start Date Expiration Date Visits Requ ested Visits Authorized [id number] Closed 10/19/2019 10/18/2020 1 1 T DOUGH MIXER Encounter Details Date Type Department Care Team Description 10/19/2019 Clinical Communication Division of Keisha Bailey Gastroenterology in [place], [place], M.S.N. 200 [facility] 200 [place] [address] [place], [place] [phone] Social History Tobacco Use Types Packs/Day Years [...] do you attend druze or Never 2021 anglican services? Do you [...] completed or the highest Martin, MEd, HOME CARE PROVIDER, CAYDEN) degree you have received? Sex Assigned at Date Recorded Male 05/21/2018 2:34 PM CDT documented as of this encounter Miscellaneous Notes Addendum Note - Keisha Bailey APRN, C.N.P., M.S.N. - 10/19/2019 11:13 AM SWEET DOUGH MIXER Addended by: KEISHA BAILEY on: 10/19/2019 11:13 AM Modules accepted: Orders T DOUGH MIXER Telephone Encounter - Keisha Bailey APRN, C.N.P., [...] me with any further questions or concerns. T DOUGH MIXER documented in this encounter Plan of Treatment Not on filedocumented as of this encounter Results ECG 12 Lead (10/20/2019 1:23 PM SWEET DOUGH MIXER) P athologist Signature Ventricular Rate 73 BPM MUSE ECG/Min [place] Interval 142 ms MUSE QRSD Interval 110 ms MUSE QT Interval 416 ms MUSE QTC Interval 459 ms MUSE P [place] 35 degrees MUSE R [place] -40 degrees MUSE T Wave [place] 48 degrees MUSE Specimen Anatomical Collection Method Collection Time Receive d Time (Source) Location / / Volume Laterality 10/20/2019 1:23 PM 0 2:03 SWEET DOUGH MIXER PM SWEET DOUGH MIXER Impressions MUSE - 10/20/2019 2:03 PM SWEET DOUGH MIXER Normal sinus rhythm Left axis deviation Nonspecific [...] NA (ABNORMAL) Glucose, Fasting (10/20/2019 12:58 PM SWEET DOUGH MIXER) athologist Signature Glucose, P 181 (H) 70 - 100 10/20/2019 DTL mg/dL 2:22 PM SWEET DOUGH MIXER Last Intake 5 hr 10/20/2019 DTL 1:18 PM SWEET DOUGH MIXER Specimen Anatomical Collection Method Collection Time Receive d Time (Source) Location / / Volume Laterality Blood (Blood, 10/20/2019 12:58 10/20/2019 1:18 Venous) PM SWEET DOUGH MIXER PM SWEET DOUGH MIXER Brigette Mir APRNNJolene., M.S.N. LAB BLOOD NON ADD- ON Performing Organization Address City/[facility]/ZIP [facility] Phon e Number [facility] - [address] Sodium (10/20/2019 12:58 PM SWEET DOUGH MIXER) athologist Signature Sodium, S 141 135 - 145 10/20/2019 2:20 DTL mmol/L PM SWEET DOUGH MIXER Specimen Anatomical Collection Method Collection Time Receive d Time (Source) Location / / Volume Laterality Blood (Blood, 10/20/2019 12:58 10/20/2019 1:18 Venous) PM SWEET DOUGH MIXER PM SWEET DOUGH MIXER Brigette Mir APRNNJolene., M.S.N. LAB BLOOD ADD-ON Performing Organization Address City/[facility]/ZIP Code Phon e Number [facility] - [address] Potassium (10/20/2019 12:58 PM SWEET DOUGH MIXER) athologist Signature Potassium, S 4.2 3.6 - 5.2 10/20/2019 DTL mmol/L 2:20 PM SWEET DOUGH MIXER Specimen Anatomical Collection Method Collection Time Receive d Time (Source) Location / / Volume Laterality Blood (Blood, 10/20/2019 12:58 10/20/2019 1:18 Venous) PM SWEET DOUGH MIXER PM SWEET DOUGH MIXER Anna Marie Mir APRN.N.P., M.S.N. LAB BLOOD ADD-ON Performing Organization Address City/State/ZIP Code Phon e Number [facility] - [address] [place] [address] Laboratories-[facility] 200 [facility] Prothrombin Time (PT) (10/20/2019 12:57 PM SWEET DOUGH MIXER) P athologist Signature Prothrombin 11.4 9.4 - 12.5 10/20/2019 DTL Time, P sec 1:37 PM SWEET DOUGH MIXER INR 1.0 0.9 - 1.1 10/20/2019 DTL 1:37 PM SWEET DOUGH MIXER Comment: ----ADDITIONAL INFORMATION---- Standard intensity warfarin therapeutic range: 2.0 to 3.0 ?? High intensity warfarin therapeutic rang e: 2.5 to 3.5 Specimen Anatomical Collection Method Collection Time Receive d Time (Source) Location / / Volume Laterality Blood (Blood, 10/20/2019 12:57 10/20/2019 1:18 Venous) PM SWEET DOUGH MIXER PM SWEET DOUGH MIXER Keisha Bailey APRN C.N.P., M.S.N. LAB BLOOD ADD-ON Performing Organization Address City/State/ZIP Code Phon e Number [facility] - [address] [place] [address] Laboratories-[address] (ABNORMAL) CBC without Differential (10/20/2019 12:57 PM SWEET DOUGH MIXER) Patholo gist Method Time Signature Hemoglobin 12.4 (L) 13.2 - 10/20/2019 DTL 16.6 g/dL 1:27 PM SWEET DOUGH MIXER Hematocrit 36.4 (L) 38.3 - 10/20/2019 DTL 48.6 % 1:27 PM SWEET DOUGH MIXER Erythrocytes 4.15 (L) 4.35 - 10/20/2019 DTL 5.65 1:27 PM SWEET DOUGH MIXER x10(12)/L MCV 87.7 78.2 - 10/20/2019 DTL 97.9 fL 1:27 PM SWEET DOUGH MIXER RBC Distrib Width 12.7 11.8 - 10/20/2019 DTL 14.5 % 1:27 PM SWEET DOUGH MIXER Platelet Count 257 135 - 317 10/20/2019 DTL x10(9)/L 1:27 PM SWEET DOUGH MIXER Leukocytes 7.8 3.4 - 9.6 10/20/2019 DTL x10(9)/L 1:27 PM SWEET DOUGH MIXER Specimen Anatomical Collection Method Collection Time Receive d Time (Source) Location / / Volume Laterality Blood (Blood, 10/20/2019 12:57 10/20/2019 1:18 Venous) PM SWEET DOUGH MIXER PM SWEET DOUGH MIXER Keisha Bailey APRN, C.N.P., M.S.N. LAB BLOOD ADD-ON Performing Organization Address City/State/ZIP Code Phon e Number [facility] - [address] [place], [place] [address] [facility] [place] [address] Laboratories-[facility] [address] BMD Bone Density Spine Hips (10/20/2019 12:21 PM SWEET DOUGH MIXER) Anatomical Region Laterality Modality Hip, Lumbar Spine, Nuclear Medicine RST LOS, N/A Radiographic Imaging Musculoskeletal ARZ LOS, Muskuloskeletal FLA LOS Specimen (Source) Anatomical Collection Method Collection Time Re ceived Time Location / / Volume Laterality 10/20/2019 12:32 PM SWEET DOUGH MIXER Impressions 10/20/2019 12:32 PM SWEET DOUGH MIXER No evidence of osteoporosis or osteopeni a found Narrative 10/20/2019 12:32 PM SWEET DOUGH MIXER EXAM: ??BMD BONE DENSITY SPINE HIPS FINDINGS: [...] including images and graphs, is available in [employer]. In the absence of other causes of [...] documented as of this encounter Care Teams Telegraphic Instrument Supervisor Relationship Specialty Start Date End Date Ewa Alejandro M.D. PCP - General 03/13/17 01/09/[address] [phone] documented as of this encounter
--- OUTSIDE RECORDS SUMMARY | 2022-05-28 07:20 | XMS_ITS | Encounter Summary ---
:1945 Author Organization [facility] Address [address] [place] [address] Care Team Providers Name Role Phone Ewa Alejandro M.D. Primary Care Provider Reason for Referral Outpatient (Routine) - Closed Specialty Diagnoses / Procedures Referred By Contact Refer red To Contact Pulmonary Medicine Diagnoses Chronic Cough [place] [place] [facility] [place] [address], [place] [address] Referral ID Status Reason Start Date Expiration Date Visits Requ ested Visits Authorized [id number] Closed 10/27/2019 10/26/2020 1 1 UCTION LINE SOLDERER Encounter Details Date Type Department Care Team Description 10/27/2019 Orders Only Department of [facility] Philip Barnard Chronic (Primary Medicine, Ewa Barclay, Martin) Clinic, in [place] [address] [place] [phone] Social History Tobacco Use Types Packs/Day Years [...] do you attend mu-ism or Never 2021 restorationist services? Do you [...] completed or the highest Martin, MEd, FOOD COUNTER ATTENDANT, CAYDEN) degree you have received? Sex Assigned at Date Recorded Male 05/21/2018 2:34 PM CDT documented as of this encounter Plan of Treatment Scheduled Referrals Name Type Priority Associated Diagnoses Order S [facility] Pulmonary Medicine Outpatient Referral Routine Cough Chronic E xpected: - Cough consult 10/28/2019, (clinic) Expires: 10/27/2022 documented as of this encounter Results DX Chest AP or PA and Lateral 2 Views (11/16/2019 8:25 AM PRODUCTION LINE SOLDERER) Anatomical Region Laterality Modality Chest, Thoracic RST LOS, Thoracic ARZ LOS, Thoracic N/A Digital Radiography FLA LOS Specimen (Source) Anatomical Collection Method Collection Time Re ceived Time Location / / Volume Laterality 11/16/2019 8:31 AM PRODUCTION LINE SOLDERER Impressions 11/16/2019 8:32 AM PRODUCTION LINE SOLDERER No acute radiographic abnormality. Narrative 11/16/2019 8:32 AM PRODUCTION LINE SOLDERER EXAM: DX CHEST AP OR PA AND [...] documented as of this encounter Care Teams Editor In Chief Newspaper Relationship Specialty Start Date End Date Ewa Alejandro M.D. PCP - General 03/13/17 01/09/[address] [phone] documented as of this encounter
--- OUTSIDE RECORDS SUMMARY | 2022-05-28 07:20 | XMS_ITS | Encounter Summary ---
:1945 Author Organization [facility] Address [address] [place] [address] Care Team Providers Name Role Phone Ewa Alejandro M.D. Primary Care Provider [phone] Reason for Visit Reason Comments Pancreas Results DEXA scan, glucose, CBC Encounter Details Date Type Department Care Team Description 11/04/2019 Clinical Division of Keisha Lopez Pancreas; Resu lts Communication Gastroenterology in , BASS VIOL REPAIRER, (DEXA s can, [place], [place] C.N.P., M.S.N. glucose, CBC ) [address] [place] [address] [address] [place] [phone] Social History Tobacco Use Types Packs/Day Years [...] you attend latter day or Never 2021 voodoo services? Do you [...] completed or the highest Martin, MEd, PROCESS AUTOMATION ENGINEER, CAYDEN) degree you have received? Sex Assigned at Date Recorded Male 05/21/2018 2:34 PM CDT documented as of this encounter Miscellaneous Notes Telephone Encounter - Daphney Batista, RMauroN. - 11/04/2019 12:29 PM MIXER ATTENDANT SUBJECTIVE CHIEF COMPLAINT / REASON FOR CALL [...] Patient stated he has already seen an Fabrication Mig Welder and has plans to follow with them. Additionally he will follow up with PCP regarding anemia concerns. Ordered by: Keisha Lopez CNP Date performed: 10/20/2019 Pending results: None Disposition/Recommendation: per the above Information/Education: patient/caller able to teach back Caller agreeable to plan of care: yes R ATTENDANT documented in this encounter Plan of Treatment Not on filedocumented as of this encounter Visit Diagnoses Not on filedocumented in this encounter Additional Health Concerns Assessment Noted Time PHQ-9 Depression Total Score: 18 04/28/2018 11:27 AM C DT documented as of this encounter Care Teams Retail Merchandiser Technician Relationship Specialty Start Date End Date Ewa Alejandro M.D. PCP - General 03/13/17 01/09/20 [address] [address] documented as of this encounter
--- OUTSIDE RECORDS SUMMARY | 2022-05-28 07:20 | XMS_ITS | Encounter Summary ---
:1945 Author Organization [facility] Address [address] [place] [address] Care Team Providers Name Role Phone Ewa Alejandro M.D. Primary Care Provider [phone] Encounter Details Date Type Department Care Team Description 11/18/2019 Hospital Encounter Department of Dolores, Personal History Of Laboratory Medicine Pato Mims Malignant Neoplasm Of in [place], [address] [place] [phone] Social History Tobacco Use Types Packs/Day [...] do you attend congregational or Never 2021 adventist services? Do you [...] have completed or the highest Martin, MEd, REGRINDER OPERATOR, CAYDEN) degree you have received? Sex [...] mouth 0 10/1305/06/2020 100 mg tablet daily. [id number]-ifcpwvry-ndiklfs Take 2 capsules by 240 capsule 3 [...] 05/01/2020 reader (FREESTYLE ILEANA 14 DAY READER) [facility] flash glucose sensor Use as directed. 6 [...] Priority Date/Time Associated Diagnosis Comme nts CYTOLOGY NON-HISTOLOGIC TECHNICIAN Routine 11/18/2019 9:01 AM Personal History O f Results for this (SCHEDULED) SHARK BIOLOGIST Malignant Neoplasm procedure are in Of Bladder the results section. documented in this encounter Results Cytology Non-HISTOLOGIC TECHNICIAN (Scheduled) (11/18/2019 9:01 AM SHARK BIOLOGIST) Component Value Ref Test Analysis Performed At [facility] gist Range Method Time Signature 11/19/2019 [facility] 10:23 AM SHARK BIOLOGIST Fixative 50% REAGENT 11/19/2019 [facility] ALCOHOL 10:23 AM SHARK BIOLOGIST Report Brady Goodrich MD 11/19/2019 HK electronically I verify that I have examined all relevant slides/ma terials 10:23 AM signed by for the specimen(s) and rendered or confirmed the diagnosis. SHARK BIOLOGIST Gross Description Received 80 11/19/2019 HK ml of cloudy 10:23 AM yellow SHARK BIOLOGIST alcohol fixed fluid. Collection VOIDED 11/19/2019 [facility] Procedure 10:23 AM SHARK BIOLOGIST Source A. Urine, 11/19/2019 [facility] Clean Catch, 10:23 AM voided SHARK BIOLOGIST Clinical History Z85.51 11/19/2019 [facility] 10:23 AM SHARK BIOLOGIST Interpretation A. 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 10:23 A M SHARK BIOLOGIST Specimen Anatomical Collection Method Collection Time Receive d Time (Source) Location / / Volume Laterality Varies (Urine, 11/18/2019 9:01 AM 020 7:13 Clean Catch) SHARK BIOLOGIST AM SHARK BIOLOGIST Narrative This result has an attachment that is no t available. Prasanna Bernal M.D. LAB SURG PATH ORDERABLES Performing Organization Address City/State/ZIP Code Phon e Number [id number] [address] [place] [address] [place] [address] [facility] [address] [facility] documented in this encounter Visit Diagnoses Diagnosis Personal History Of Malignant Neoplasm O f Bladder documented in this encounter Additional Health Concerns Assessment Noted Time PHQ-9 Depression Total Score: 18 04/28/2018 11:27 AM C DT documented as of this encounter Care Teams Oracle Architect Relationship Specialty Start Date End Date Ewa Alejandro M.D. PCP - General 03/13/17 01/09/[address] [place] [address] documented as of this encounter
--- OUTSIDE RECORDS SUMMARY | 2022-05-28 07:20 | XMS_ITS | Encounter Summary ---
:1945 Author Organization [facility] Address [address] [place] [address] Care Team Providers Name Role Phone Ewa Alejandro M.D. Primary Care Provider Encounter Details Date Type Department Care Team Description 11/16/2019 Hospital Encounter Department of Radiology Clifford Bal Cough Chronic in [facility] Ewa mullen M.D. [address] [place] [address] [address] [place] [address] [place], [place] [phone] Social History Tobacco Use Types Packs/Day [...] do you attend latter-day or Never 2021 voodoo services? Do you [...] have completed or the highest Martin, MEd, GOODYEAR STITCHER, CAYDEN) degree you have received? Sex [...] mouth 0 10/1305/06/2020 100 mg tablet daily. vdcqqh-qzaspudo-tnuqgra Take 2 capsules by 240 capsule 3 [...] 05/01/2020 reader (FREESTYLE ILEANA 14 DAY READER) [facility] flash glucose sensor Use [...] this AND LATERAL 2 (most inpatients AM PAPER LATCHER procedure are in VIEWS and all the results outpatients) section. documented in this encounter Results DX Chest AP or PA and Lateral 2 Views (11/16/2019 8:25 AM PAPER LATCHER) Anatomical Region Laterality Modality Chest, Thoracic RST LOS, Thoracic ARZ LOS, Thoracic N/A Digital Radiography FLA LOS Specimen (Source) Anatomical Collection Method Collection Time Re ceived Time Location / / Volume Laterality 11/16/2019 8:31 AM PAPER LATCHER Impressions 11/16/2019 8:32 AM PAPER LATCHER No acute radiographic abnormality. Narrative 11/16/2019 8:32 AM PAPER LATCHER EXAM: DX CHEST AP OR PA AND [...] as of this encounter Care Teams Hogshead Press Operator Relationship Specialty Start Date End Date Ewa Alejandro M.D. PCP - General 03/13/17 01/09/[address] [phone] documented as of this encounter
--- OUTSIDE RECORDS SUMMARY | 2022-05-28 07:20 | XMS_ITS | Encounter Summary ---
:1945 Author Organization [facility] Address [address] [place] [address] Care Team Providers Name Role Phone Ewa Alejandro M.D. Primary Care Provider [phone] Reason for Visit Reason Comments Follow-up 6 month bladder cancer surve illance Outpatient (Routine) - Closed Specialty Diagnoses / Procedures Referred By Contact Refer red To Contact Diagnoses Personal History Of Malignant Neoplasm Of Bladder Prasanna Bernal M.D. [facility] Region Procedures Cystoscopy (specific provider) [address] [place] [address] Referral ID Status Reason Start Date Expiration Date Visits Requ ested Visits Authorized [id number] Closed 05/24/2019 05/23/2020 1 1 Encounter Details Date Type Department Care Team Description 11/25/2019 Office Visit Department of Urology Prasanna Bernal Per sonal History Of in Moise Dixon M.D. Malignant Neoplasm Of [address] [facility] [place] [phone] Social History Tobacco Use Types Packs/Day Years [...] do you attend sabianism or Never 2021 scientologist services? Do you belong to any clubs or No 10/09/2021 organizations such as sabianism groups, unions, [employer] or athletic groups, or school groups? How [...] have completed or the highest Martin, MEd, HOGSHEAD ROLLER, CAYDEN) degree you have received? Sex Assigned at Date Recorded Male 05/21/2018 2:34 PM CDT documented as of this encounter Last Filed Vital Signs Vital Sign Reading Time Taken Comments Blood Pressure 143/72 11/25/2019 8:04 AM TRUST OFFICER Pulse 68 11/25/2019 8:04 AM TRUST OFFICER Temperature 36.7 ??C (98.1 ??F) 11/25/2019 8:04 AM TRUST OFFICER Respiratory Rate - - Oxygen Saturation - [...] by: Prasanna Bernal M.D. 11/25/19 8:33 AM TRUST OFFICER T OFFICER documented in this encounter Plan of Treatment Not on filedocumented as of this encounter Results Cytology Non-COTTON BAG SEWER (Scheduled) (06/06/2020 1:33 PM CDT) Component Value Ref Test Analysis Performed At [facility] gist Range Method Time Signature 06/07/2020 DTL 2:47 PM CDT Report Dafne Rodriguez M.D. [id number] 06/07/2020 DTL electronically I verify that I [...] [facility] - [address] [place], [place] [address] [facility] [place] [address] [facility] [address] documented in this encounter Visit Diagnoses Diagnosis Personal History Of Malignant Neoplasm O f Bladder documented in this encounter Additional Health Concerns Assessment Noted Time PHQ-9 Depression Total Score: 18 04/28/2018 11:27 AM C DT documented as of this encounter Care Teams Financial Center Manager Relationship Specialty Start Date End Date Ewa Alejandro M.D. PCP - General 03/13/17 01/09/20 [address] [place] [phone] documented as of this encounter
--- OUTSIDE RECORDS SUMMARY | 2022-05-28 07:20 | XMS_ITS | Encounter Summary ---
:1945 Author Organization [facility] Address [address] [place] [address] Care Team Providers Name Role Phone Ewa Alejandro M.D. Primary Care Provider Encounter Details Date Type Department Care Team Description 10/28/2019 Clinical Communication Department of Family Kirill Torres [facility], Ewa Barclay, Clinic, in [place] [address] [place] [phone] Social History Tobacco Use Types Packs/Day Years [...] do you attend jainism or Never 2021 episcopal services? Do you [...] have completed or the highest Martin, MEd, SILVICULTURE PROFESSOR, CAYDEN) degree you have received? Sex Assigned at Date Recorded Male 05/21/2018 2:34 PM CDT documented as of this encounter Miscellaneous Notes Telephone Encounter - Ewa Alejandro M.D. 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 It will be fine for him to hold Plavix prior to an endoscopy. If we know when the procedure is, we can guide him as far as when to start holding. GY SCHEDULER Telephone Encounter - Natasha Decker - 10/28/2019 [...] symptom based concerns): Action Needed: Please send [place] permission for patient so they can schedule him. Name of Medication (if relevant): GY SCHEDULER documented in this encounter Plan of Treatment Not on filedocumented as of this encounter Visit Diagnoses Not on filedocumented in this encounter Additional Health Concerns Assessment Noted Time PHQ-9 Depression Total Score: 18 04/28/2018 11:27 AM C DT documented as of this encounter Care Teams Hoop Maker Relationship Specialty Start Date End Date Ewa Alejandro M.D. PCP - General 03/13/17 01/09/20 [address], [place] [address] documented as of this encounter
--- OUTSIDE RECORDS SUMMARY | 2022-05-28 07:20 | XMS_ITS | Encounter Summary ---
:1945 Author Organization [facility] Address [address] [place] [address] Care Team Providers Name Role Phone Ewa Alejandro M.D. Primary Care Provider [phone] Reason for Referral Outpatient (Routine) - Closed Specialty Diagnoses / Procedures Referred By Contact Refer red To Contact Pulmonary Medicine Ailyn Sims [place] M.D. [address] [place] [address] Referral ID Status Reason Start Date Expiration Date Visits Requ ested Visits Authorized [id number] Closed 12/15/2019 12/14/2020 1 1 Outpatient (Routine) - Closed Specialty Diagnoses / Procedures Referred By Contact Refer red To Contact Diagnoses Chronic Cough Shortness Of Breath Asthma Extrinsic Moderate (HCC) Ailyn Sims M.D. Procedures Echo Stress [address] [place], [place] [phone] Referral ID Status Reason Start Date Expiration Date Visits Requ ested Visits Authorized [id number] Closed 12/15/2019 12/14/2020 1 1 Outpatient (Routine) - Closed Specialty Diagnoses / Referred By Contact Referred To Contact Procedures Allergy and Immunology Diagnoses Chronic Cough Shortness Of Breath Asthma Extrinsic Moderate (HCC) Ailyn Sims [place] M.D. [address] [place] [address] Referral ID Status Reason Start Date Expiration Date Visits Requ ested Visits Authorized [id number] Closed 12/15/2019 12/14/2020 1 1 Outpatient (Routine) - Closed Specialty Diagnoses / Procedures Referred By Contact Refer red To Contact Pulmonary Medicine Diagnoses Chronic Cough [place] Felicita Mcneil M.D. [address] [place] [phone] Referral ID Status Reason Start Date Expiration Date Visits Requ ested Visits Authorized [id number] Closed 10/27/2019 10/26/2020 1 1 Reason for Visit Outpatient (Routine) - Closed Specialty Diagnoses / Procedures Referred By Contact Refer red To Contact Pulmonary Medicine Diagnoses Chronic Cough [place] Felicita Mcneil M.D. [address] [place] [phone] Referral ID Status Reason Start Date Expiration Date Visits Requ ested Visits Authorized [id number] Closed 10/27/2019 10/26/2020 1 1 Encounter Details Date Type Department Care Team Description 12/15/2019 Hospital Encounter Division of Ailyn Sims rtness Of Breath (Primary Dx); Pulmonary Medicine [place] Cough Chronic; in [place], [facility] Asthma Extrinsic Moderate (HCC) [place], [place] [address] [facility] [address] [place], [place] [phone] (Wo rk) [phone] Social History Tobacco Use Types Packs/Day Years [...] do you attend amish or Never 2021 anabaptist services? Do you [...] completed or the highest Martin, MEd, CARD SETTER, CAYDEN) degree you have received? Sex [...] mouth 0 10/1305/06/2020 100 mg tablet daily. shcjsk-gquqavpi-fptfsfd Take 2 capsules by 240 capsule 3 [...] 05/01/2020 reader (FREESTYLE ILEANA 14 DAY READER) [facility] flash glucose sensor Use as directed. 6 [...] is pending. Prior environmental exposures include Agent [place] (1967), possible mild positional sleep apnea, and deconditioning. Patient did retire from [employer] 1 year ago and does report increased [...] DOPPLER AND CONTRAST (12/15/2019 3:33 PM CDT) [facility] gist Method Time Signature Ejection Fraction [...] effusion. For the complete report, see the [id number] Documents. Narrative 12/15/2019 4:55 PM CDT For the complete report, see the [employer] Documents. Final Impressions 1. Exercise echocardiogram positive [...] 8. O2 uptake data detailed in the [employer] Medical Record (Cardiopulmonary (VO2) Exercise Test). 9. [...] original. For the complete report, see the [employer] Documents. Final Impressions 1. Exercise echocardiogram positive [...] 8. O2 uptake data detailed in the [employer] Medical Record (Cardiopulmonary (VO2) Exercise Test). 9. [...] in Di vision of Allergic Diseases in [place], [place] Controls Prick Control ??0 Histamine (15 min W/F) ??5x6f Glycerine (15 min W/F) ??0 Basic Panel Cat Hair ??0 Cockroach mix (Cook Islander & Occitan) ??0 Dog AP ??0 D.F. Mite ??5x5f [...] White ??0 Shashank, White ??0 Birch ??0 South [place], Red ??0 Callahan, Eastern ??0 Elm, Cook Islander ??0 Maple ??0 Wyandotte, Black ??0 Montrose ??0 Dukes, White ??0 Harvard, Cook Islander ??0 Bermuda ??0 Kentucky Blue ??0 Orchard ??0 Zhang ??0 Kochia ??0 Garcia's Quarters ??0 Page Elder, Burweed ??0 Mugwort, Common ??0 Plantain, Austrian ??0 Rough Pigweed ??0 Papua [place] Guinean thistle ??0 Short Ragweed ??0 Honomu, Sheep Red ??0 Skin test positive. Clinical [...] 12/15/2019 in vision of Allergic Diseases in [place], [place] Controls Prick Control ??0 Histamine (15 min W/F) ??5x6f Glycerine (15 min W/F) ??0 Basic Panel Cat Hair ??0 Cockroach mix (Cook Islander & Occitan) ??0 Dog AP ??0 D.F. Mite ??5x5f D. P Mite ??6x7f Horse ??0 Alternaria Alternata ??0 Aspergillus Fumigatus ??0 Bipolaris Sorokiniana ??0 Chaetomium Globosum ??0 Curvularia Spicifera (Drechstera Spidfer a) ??0 Epicoccum ??0 Fusarium ??0 Geotrichum ??0 Helminthosporium ??0 Hormodendrum/Clad (Cladostorium Cladospo rioides) ??0 Mucor Racemosus ??0 Penicillium Mix ??0 Phoma Herbarum ??0 Pullularia ??0 Rhizopus Stolonifer ??0 Stemphylium Solani ??0 Northern Panel Ogden, White ??0 Shashank, White ??0 Birch ??0 South D[place], Red ??0 Callahan, Eastern ??0 Elm, Cook Islander ??0 Maple ??0 Wyandotte, Black ??0 Montrose ??0 Dukes, White ??0 Harvard, Cook Islander ??0 Bermuda ??0 Kentucky Blue ??0 Orchard ??0 Zhang ??0 Kochia ??0 Garcia's Quarters ??0 Page Elder, Burweed ??0 Mugwort, Common ??0 Plantain, Austrian ??0 Rough Pigweed ??0 Papua New Guinean thistle ??0 Short Ragweed ??0 Honomu, Sheep Red ??0 Skin test positive. Clinical correlation recommended and allergy consult, if clinically indicated. Ailyn Sims M.D. PROCEDURE/MINOR SURGICAL ORD ERABLES Performing Organization Address City/State/ZIP Code Phon e Number MMODAL MMODAL NA Pulmonary Function Tests (12/15/2019 9:21 AM CDT) athologist Signature VC MAX PRE 3.87 L 12/29/2019 [facility] 10:51 AM CDT SUITE FVC 3.87 L 12/29/2019 [facility] 10:51 AM CDT SUITE FEV1 2.62 L 12/29/2019 [facility] 10:51 AM CDT SUITE FEV1/FVC 67.58 % 12/29/2019 [facility] 10:51 AM CDT SUITE GEM94-81% 1.41 L/s 12/29/2019 [facility] 10:51 AM CDT SUITE PEF PRE 7.01 L/s 12/29/2019 [facility] 10:51 AM CDT SUITE FET PRE 12.56 sec 12/29/2019 [facility] 10:51 AM CDT SUITE DLCO 17.97 ml/(min*mm 12/29/2019 [facility] Hg) 10:51 AM CDT SUITE VA 6.35 L 12/29/2019 [facility] 10:51 AM CDT SUITE N0ObxHusx 96.00 % 12/29/2019 [facility] 10:51 AM CDT SUITE PulseRest 85.00 1/min 12/29/2019 [facility] 10:51 AM CDT SUITE J1CutDuey 93.00 % 12/29/2019 [facility] 10:51 AM CDT SUITE PulseExer 103.00 1/min 12/29/2019 [facility] 10:51 AM CDT SUITE EXER TIME 3.00 min 12/29/2019 [facility] 10:51 AM CDT SUITE STEP HEIGHT 9.00 Inch 12/29/2019 [facility] PRE 10:51 AM CDT SUITE % PRED VC MAX 86.08 % 12/29/2019 [facility] 10:51 AM CDT SUITE FVC% 86.08 % 12/29/2019 [facility] 10:51 AM CDT SUITE FEV1% 78.76 % 12/29/2019 [facility] 10:51 AM CDT SUITE % PRED 90.68 % 12/29/2019 [facility] FEV1/FVC 10:51 AM CDT SUITE % PRED FEF 60.23 % 12/29/2019 [facility] 25-75% 10:51 AM CDT SUITE % PRED PEF 78.97 % 12/29/2019 [facility] 10:51 AM CDT SUITE PRED VC MAX 4.50 L 12/29/2019 [facility] 10:51 AM CDT SUITE PRED FVC 4.50 L 12/29/2019 [facility] 10:51 AM CDT SUITE PRED FEV 1 3.32 L 12/29/2019 [facility] 10:51 AM CDT SUITE PRED FEV1/FVC 74.53 % 12/29/2019 [facility] 10:51 AM CDT SUITE PRED FEF 2.34 L/s 12/29/2019 [facility] 25-75% 10:51 AM CDT SUITE PRED PEF 8.87 L/s 12/29/2019 [facility] 10:51 AM CDT SUITE Specimen (Source) Anatomical Collection Method Collection Time Re ceived Time Location / / Volume Laterality 12/15/2019 9:21 AM CDT Narrative This result has an attachment that is no t available. Ailyn Sims M.D. PFT ORDERABLES Performing Organization Address City/State/ZIP Code Phon e Number [facility] [address] [address] PUL Exhaled Nitric Oxide (12/15/2019 9:13 AM CDT) [facility] Method Time Signature Exhaled NO 64 MMODAL Oral Parts per 39 MMODAL billion (ULN) ENOComment Patient takes MMODAL Albuterol, Symbicort Specimen (Source) Anatomical Location Collection Method / Collectio n Time Received Time / Laterality Volume Ailyn Sims M.D. PFT ORDERABLES Performing Organization Address City/[facility] Code Phon e Number MMODAL MMODAL NA [...] documented as of this encounter Care Teams English Composition Teacher Relationship Specialty Start Date End Date Ewa Alejandro M.D. PCP - General 03/13/17 01/09/20 [address] [place] [phone] documented as of this encounter
--- OUTSIDE RECORDS SUMMARY | 2022-05-28 07:20 | XMS_ITS | Encounter Summary ---
:1945 Author Organization [facility] Address [address] [place] [address] Care Team Providers Name Role Phone Ewa Alejandro M.D. Primary Care Provider [phone] Reason for Visit Reason Comments other patient requesting to have a ll specialist appointment in [place] be coordinated by primary provi vasquez Appointment Request (Routine) - Closed Specialty Diagnoses / Procedures Referred By Contact Refer red To Contact Family Medicine Referral ID Status Reason Start Date Expiration Date Visits Requ ested Visits Authorized [id number] Closed 09/28/2019 09/27/2020 1 1 Encounter Details Date Type Department Care Team Description 10/15/2019 Office Visit Department of Family Alicia freed Disorders Of Lung (Primary Dx); Medicine, Ewa Turner, Werner s Mellitus Type 2 Hyperglycemia (HCC) Clinic, in [place] [address] [place] [phone] Social History Tobacco Use Types Packs/Day Years [...] you attend oriental orthodox or Never 2021 adventism services? Do you [...] completed or the highest Martin, MEd, CHARGE HAND, CAYDEN) degree you have received? Sex Assigned at Date Recorded Male 05/21/2018 2:34 PM CDT documented as of this encounter Last Filed Vital Signs Vital Sign Reading Time Taken Comments Blood Pressure 134/66 10/15/2019 11:38 AM BUSINESS CONTINUITY SPECIALIST Pulse 68 10/15/2019 11:38 AM BUSINESS CONTINUITY SPECIALIST Temperature 36.4 ??C (97.5 ??F) 10/15/2019 11:38 AM BUSINESS CONTINUITY SPECIALIST Respiratory Rate 18 10/15/2019 11:38 AM BUSINESS CONTINUITY SPECIALIST Oxygen Saturation - - Inhaled Oxygen Concentration - - Weight 107 kg (236 lb 12.4 oz) 10/15/2019 11:38 AM BUSINESS CONTINUITY SPECIALIST Height 188 cm (6' 2.02) 10/15/2019 11:38 AM BUSINESS CONTINUITY SPECIALIST Body Mass Index 30.39 10/15/2019 11:38 AM BUSINESS CONTINUITY SPECIALIST documented in this encounter Progress Notes Ewa Alejandro M.D. - 10/15/2019 11:45 AM CST SUBJECTIVE Chief Complaint Patient presents with ??? other patient requesting to have all specialist appointment in [place] be coordinated by primary provider HISTORY OF PRESENT ILLNESS Jonnathan Costa is a 74 y.o. male who presents to the clinic today to discuss referrals to [place]. He states that he has not felt [...] supplies. He would like a referral to [place], but he is not sure which specialist to goto. He believes that he went through a depression recently. He was sleeping between 11-12 hours a day and still fatigued. Then around 09/17/19, he woke and felt better and happy. He is following with the Pan[facility] at [facility] and started following with Endocrinology to help [...] injection LW Addl Instr:Indicated for: Diabetes ??? ajjqeq-hqsmxzxj-jipvjol (CREON) 6,000-19,000-30,[address] capsule Take [...] to CPAP therapy ??? Asthma ([facility]) 10/16/2009 Pulmonary symptomatology, diagnosis at the [place] [...] [facility]. ??? TONSILLECTOMY ??? VASECTOMY PREVENTIVE SERVICES: [...] lung disease PLAN: Will place referral to [place]. #2 Diabetes Mellitus Type 2 Hyperglycemia (HCC) PLAN: He is scheduled with Endocrinology at [facility] for further evaluation of this. #3 Follow [...] their behalf by Karen Givens, a trained claim review medical director. The creation of this record is based on the scribe's personal observations and the provider's statements to them. This documenthas been checked and approved by the attending provider. NESS CONTINUITY SPECIALIST documented in this encounter Plan of Treatment Not on filedocumented as of this encounter Visit Diagnoses Diagnosis Other Disorders Of Lung - Primary Diabetes Mellitus Type 2 Hyperglycemia ( HCC) documented in this encounter Additional Health Concerns Assessment Noted Time PHQ-9 Depression Total Score: 18 04/28/2018 11:27 AM C DT documented as of this encounter Care Teams Alliance Consultant Relationship Specialty Start Date End Date Ewa Alejandro M.D. PCP - General 03/13/17 01/09/20 [address] [place] [phone] documented as of this encounter
--- OUTSIDE RECORDS SUMMARY | 2022-05-28 07:20 | XMS_ITS | Encounter Summary ---
:1945 Author Organization [facility] Address [address] [place] [address] Care Team Providers Name Role Phone Ewa Alejandro M.D. Primary Care Provider [phone] Reason for Referral Outpatient (Routine) - Closed Specialty Diagnoses / Procedures Referred By Contact Refer red To Contact Diagnoses Diabetes Mellitus Type 2 With Diabetic Neuropathy (HCC) Pancreatitis Chronic (HCC) Exocrine Pancreatic Insufficiency Keisha Lopez APRN, [facility] Procedures EUS C.N.Andrea, M.S.N. [address] [place] [address] [phone] Referral ID Status Reason Start Date Expiration Date Visits Requ ested Visits Authorized [id number] Closed 12/17/2019 12/16/2020 1 1 Reason for Visit Reason Comments appointment question Encounter Details Date Type Department Care Team Description 12/10/2019 Clinical Division of Keisha Lopez appointment Communication Gastroenterology in [place] Yeung questio n [place], [place] C.NKerry, M.S.N. [address] [facility] [address] [place] [address] [phone] Social History Tobacco Use Types Packs/Day Years [...] completed or the highest Martin, MEd, CHIEF TECHNICIAN X RAY, CAYDEN) degree you have received? Sex Assigned [...] Patient will continue to follow with his Cook Syrup Maker and prefers to have EUS at [place]. Questions answered. Patient verbalized understanding and was [...] as of this encounter Care Teams Box Shook Patcher Relationship Specialty Start Date End Date Ewa Alejandro M.D. PCP - General 03/13/17 01/09/[address] [place] [address] documented as of this encounter
--- OUTSIDE RECORDS SUMMARY | 2022-05-28 07:20 | XMS_ITS | Encounter Summary ---
:1945 Author Organization [facility] Address [address] [place] [address] Care Team Providers Name Role Phone Ewa Alejandro M.D. Primary Care Provider [phone] Reason for Visit Reason Onset Date Comments Blood glucose review 11/05/2019 Encounter Details Date Type Department Care Team Description 11/05/2019 Clinical Department of Alysha Pompa Blood glucos e Communication Nutrition in A, R.N., CDCES review [place], [facility] [address] [place], [place] [address] [facility] [address] [place], [place] [phone] (Work) [phone] Social History Tobacco Use Types Packs/Day Years [...] do you attend nondenominational or Never 2021 episcopalian services? Do you [...] have completed or the highest Martin, MEd, REPAIRER HELPER, CAYDEN) degree you have received? Sex Assigned at Date Recorded Male 05/21/2018 2:34 PM CDT documented as of this encounter Miscellaneous Notes Telephone Encounter - Alysha Pompa RMauroN. - 11/05/2019 11:50 AM CST Attempted to call patient, left message. HOTYPE OPERATOR documented in this encounter Plan of Treatment Not on filedocumented as of this encounter Visit Diagnoses Not on filedocumented in this encounter Additional Health Concerns Assessment Noted Time PHQ-9 Depression Total Score: 18 04/28/2018 11:27 AM C DT documented as of this encounter Care Teams Administrative Services Coordinator Relationship Specialty Start Date End Date Ewa Alejandro M.D. PCP - General 03/13/17 01/09/[address] [address] documented as of this encounter
--- OUTSIDE RECORDS SUMMARY | 2022-05-28 07:20 | XMS_ITS | Encounter Summary ---
:1945 Author Organization [facility] Address [address] [place] [address] Care Team Providers Name Role Phone Ewa Alejandro M.D. Primary Care Provider [phone] Reason for Visit Reason Comments Treatment Questions Encounter Details Date Type Department Care Team Description 12/11/2019 Clinical Communication Division of [facility], Prachi bernardo Questions [facility] Internal D, R.N. Medicine, [place], [place] [address] [place] [address] Social History Tobacco Use Types Packs/Day Years [...] do you attend anabaptist or Never 2021 anglican services? Do you [...] have completed or the highest Martin, MEd, BAGGAGEMAN, CAYDEN) degree you have received? Sex Assigned [...] care: Yes The following references were used: [facility] novel coronavirus (COVID- 19) resources documented in this encounter Plan of Treatment Not on filedocumented as of this encounter Visit Diagnoses Not on filedocumented in this encounter Additional Health Concerns Assessment Noted Time PHQ-9 Depression Total Score: 18 04/28/2018 11:27 AM C DT documented as of this encounter Care Teams Instructor Adjunct Surgical Technician Relationship Specialty Start Date End Date Ewa Alejandro M.D. PCP - General 03/13/17 01/09/[address], [place] [address] documented as of this encounter
--- OUTSIDE RECORDS SUMMARY | 2022-05-28 07:20 | XMS_ITS | Encounter Summary ---
:1945 Author Organization [facility] Address [address] [place] [address] Care Team Providers Name Role Phone Ewa Alejandro M.D. Primary Care Provider [phone] Reason for Referral Outpatient (Routine) - Closed Specialty Diagnoses / Procedures Referred By Contact Refer red To Contact Diagnoses Pancreatitis Chronic (HCC) Exocrine Pancreatic Insufficiency Deficiency Vitamin D Keisha Lopez [facility] Procedures BMD Bone Density Spine Hips C.N.P., M.S.N. 200 [place] [address] Referral ID Status Reason Start Date Expiration Date Visits Requ ested Visits Authorized [id number] Closed 10/19/2019 10/18/2020 1 1 ON FACING MACHINE OPERATOR Reason for Visit Outpatient (Routine) - Closed Specialty Diagnoses / Procedures Referred By Contact Refer red To Contact Diagnoses Pancreatitis Chronic (HCC) Exocrine Pancreatic Insufficiency Deficiency Vitamin D Keisha Lopze APRN, [facility] Procedures BMD Bone Density Spine Hips C.N.P., M.S.N. [address] [place] [phone] Referral ID Status Reason Start Date Expiration Date Visits Requ ested Visits Authorized [id number] Closed 10/19/2019 10/18/2020 1 1 Encounter Details Date Type Department Care Team Description 10/20/2019 Hospital Encounter Department of Keisha Lopez Panc reatitis Chronic (HCC); Radiology, Leanne TRIVEDI C.N.P., Lexy German ancreatic Insufficiency (HCC); Building, in M.S.N. Deficiency Vitamin D [place], 200 [place], [place] [address] [facility] [address] [place], [place] [phone] (Work) [phone] Social History Tobacco Use Types Packs/Day Years [...] do you attend orthodox or Never 2021 taoist services? Do [...] have completed or the highest Martin, MEd, EQUIP TECH, CAYDEN) degree you have received? Sex [...] mouth 0 10/1305/06/2020 100 mg tablet daily. [id number] Take 2 capsules by 240 capsule 3 [...] 05/01/2020 reader (FREESTYLE ILEANA 14 DAY READER) [facility] flash glucose sensor Use [...] for this SPINE HIPS (most inpatients PM BUTTON FACING MACHINE OPERATOR (HCC) procedure are in and all Exocrine Pancreatic the resu lts outpatients) Insufficiency (H CC) section. Deficiency Vitamin D documented in this encounter Results BMD Bone Density Spine Hips (10/20/2019 12:21 PM BUTTON FACING MACHINE OPERATOR) Anatomical Region Laterality Modality Hip, Lumbar Spine, Nuclear Medicine RST LOS, N/A Radiographic Imaging Musculoskeletal ARZ LOS, Muskuloskeletal FLA LOS Specimen (Source) Anatomical Collection Method Collection Time Re ceived Time Location / / Volume Laterality 10/20/2019 12:32 PM BUTTON FACING MACHINE OPERATOR Impressions 10/20/2019 12:32 PM BUTTON FACING MACHINE OPERATOR No evidence of osteoporosis or osteopeni a found Narrative 10/20/2019 12:32 PM BUTTON FACING MACHINE OPERATOR EXAM: ??BMD BONE DENSITY SPINE [...] evidence of [facility] frag[facility]. Today's spine scan is considered [...] documented as of this encounter Care Teams Right Of Way Agent Relationship Specialty Start Date End Date Ewa Alejandro M.D. PCP - General 03/13/17 01/09/20 [address], [place] [phone] documented as of this encounter
--- OUTSIDE RECORDS SUMMARY | 2022-05-28 07:20 | XMS_ITS | Encounter Summary ---
:1945 Author Organization [facility] Address [address] [place] [address] Care Team Providers Name Role Phone Ewa Alejandro M.D. Primary Care Provider [phone] Encounter Details Date Type Department Care Team [...] do you attend sabianist or Never 2021 gnosticism services? Do you [...] have completed or the highest Martin, MEd, PREVENTIVE MAINTENANCE COORDINATOR, CAYDEN) degree you have received? Sex Assigned at Date Recorded Male 05/21/2018 2:34 PM CDT documented as of this encounter Plan of Treatment Not on filedocumented as of this encounter Procedures Procedure Name Priority Date/Time Associated Diagnosis Comme nts UROLOGY IMAGE EXAM Routine 11/25/2019 5:55 AM Res ults for this OPHTHALMIC NURSE procedure are i n the results section. documented in this encounter Results CYSTOSCOPY-Urology Image Exam (11/25/2019 5:55 AM OPHTHALMIC NURSE) Specimen (Source) Anatomical Collection Method Collection Time Re ceived Time Location / / Volume Laterality 11/25/2019 5:54 AM OPHTHALMIC NURSE Narrative IIMS - 11/25/2019 8:23 AM OPHTHALMIC NURSE This order has been created and auto-finalized [...] as of this encounter Care Teams Silk Weaver Relationship Specialty Start Date End Date Ewa Alejandro M.D. PCP - General 03/13/17 01/09/[address] [place] [address] documented as of this encounter
--- OUTSIDE RECORDS SUMMARY | 2022-05-28 07:20 | XMS_ITS | Encounter Summary ---
:1945 Author Organization [facility] Address [address] [place] [address] Care Team Providers Name Role Phone Ewa Alejandro M.D. Primary Care Provider [phone] Reason for Referral Outpatient (Routine) - Closed Specialty Diagnoses / Procedures Referred By Contact Refer red To Contact Nutrition Diagnoses Diabetes Mellitus Type 2 With Diabetic Neuropathy (HCC) Debbie Marquis M.D. [facility] 200 [place] [address] Referral ID Status Reason Start Date Expiration Date Visits Requ ested Visits Authorized [id number] Closed 10/21/2019 10/20/2020 1 1 Scheduling Instructions schedule with Zoya at 3 pm on 11/01/19 ELECTRIC TRAIN REPAIRER Encounter Details Date Type Department Care Team Description 10/21/2019 Clinical Support Department of Debbie Marquis M.D . Diabetes Mellitus Nutrition in Hair, Alysha Arias RJustina, [facility] [address] [place] [phone] Type 2 With Diabetic Alexia, Neuropathy (HCC ) [place] (Primary Dx) [address] [place] [phone] Social History Tobacco Use Types Packs/Day Years [...] do you attend sikhism or Never 2021 jehovah's witness services? Do [...] have completed or the highest Martin, MEd, ANALYTICAL SCIENTIST, CAYDEN) degree you have received? Sex [...] 2 With Diabetic Neuropathy (HCC) Nutrition - healthcare educator visit (clinic) Nutrition office visit (clinic) [...] Time spent with patient (minutes): 60 Minutes ELECTRIC TRAIN REPAIRER documented in this encounter Plan of Treatment Scheduled Referrals Name Type Priority Associated Diagnoses Order S [facility] Nutrition office Outpatient Referral Routine Diabetes Mellitus [...] - General 03/13/17 01/09/[address] [place] [address] documented as of this encounter
--- OUTSIDE RECORDS SUMMARY | 2022-05-28 07:20 | XMS_ITS | Encounter Summary ---
:1945 Author Organization [facility] Address [address] [place] [address] Care Team Providers Name Role Phone Ewa Alejandro M.D. Primary Care Provider [phone] Encounter Details Date Type Department Care Team Description 10/20/2019 Hospital Encounter Department of Keisha Lopez, Panc reatitis Chronic (HCC); Laboratory Medicine TRAVEL ACCOMMODATION INSPECTOR, C.N.P., Exocrin e Pancreatic Insufficiency (HCC) and Pathology, [facility] [address] [place] [phone] [place] [address] [place], [place] (Work) [phone] Social History Tobacco Use Types Packs/Day Years [...] do you attend baptist or Never 2021 nondenominational services? Do you belong to any clubs or No 10/09/2021 organizations such as baptist groups, unions, fraConcurrent Thinking or athletic groups, or school groups? How [...] completed or the highest Martin, MEd, MEDICAL ASSISTING PROGRAM DIRECTOR, CAYDEN) degree you have received? [...] mouth 0 10/1305/06/2020 100 mg tablet daily. [id number] Take 2 capsules by 240 capsule 3 [...] Pancreatitis Chronic Res ults for this PM MAINTENANCE TEAM LEADER (HCC) procedure are in Exocrine Pancreatic the resu lts Insufficiency ([facility]) section. POTASSIUM, S/P Routine 10/20/2019 12:58 Pancreatitis Chronic R esults for this PM MAINTENANCE TEAM LEADER (HCC) procedure are in Exocrine Pancreatic the resu lts Insufficiency ([facility]) section. GLUCOSE, FASTING, Routine 10/20/2019 12:58 Pancreatitis Chroni c Results for this S/P PM MAINTENANCE TEAM LEADER (HCC) procedure are in Exocrine Pancreatic the resu lts Insufficiency ([facility]) section. PROTHROMBIN TIME Routine 10/20/2019 12:57 Pancreatitis Chronic Results for this (PT), P PM MAINTENANCE TEAM LEADER ([facility]) procedure are in Exocrine Pancreatic the resu lts Insufficiency ([facility]) section. CBC WITHOUT Routine 10/20/2019 12:57 Pancreatitis Chronic Res ults for this DIFFERENTIAL, B PM MAINTENANCE TEAM LEADER (HCC) procedure are in Exocrine Pancreatic the resu lts Insufficiency ([facility]) section. documented in this encounter Results (ABNORMAL) Glucose, Fasting (10/20/2019 12:58 PM MAINTENANCE TEAM LEADER) P athologist Signature Glucose, P 181 (H) 70 - 100 10/20/2019 DTL mg/dL 2:22 PM MAINTENANCE TEAM LEADER Last Intake 5 hr 10/20/2019 DTL 1:18 PM MAINTENANCE TEAM LEADER Specimen Anatomical Collection Method Collection Time Receive d Time (Source) Location / / Volume Laterality Blood (Blood, 10/20/2019 12:58 10/20/2019 1:18 Venous) PM MAINTENANCE TEAM LEADER PM MAINTENANCE TEAM LEADER Keisha Lopez APRN, C.N.P., M.S.N. LAB BLOOD NON ADD- ON Performing Organization Address City/[facility] Phon e Number [facility] - [address] Sodium (10/20/2019 12:58 PM MAINTENANCE TEAM LEADER) athologist Signature Sodium, S 141 135 - 145 10/20/2019 2:20 DTL mmol/L PM MAINTENANCE TEAM LEADER Specimen Anatomical Collection Method Collection Time Receive d Time (Source) Location / / Volume Laterality Blood (Blood, 10/20/2019 12:58 10/20/2019 1:18 Venous) PM MAINTENANCE TEAM LEADER PM MAINTENANCE TEAM LEADER Keisha Lopez APRN, C.N.P., M.S.N. LAB BLOOD ADD-ON Performing Organization Address [facility] Phon e Number [facility] - [address] Potassium (10/20/2019 12:58 PM MAINTENANCE TEAM LEADER) athologist Signature Potassium, S 4.2 3.6 - 5.2 10/20/2019 DTL mmol/L 2:20 PM MAINTENANCE TEAM LEADER Specimen Anatomical Collection Method Collection Time Receive d Time (Source) Location / / Volume Laterality Blood (Blood, 10/20/2019 12:58 10/20/2019 1:18 Venous) PM MAINTENANCE TEAM LEADER PM MAINTENANCE TEAM LEADER Keisha Lopez APRN, C.N.P., M.S.N. LAB BLOOD ADD-ON Performing Organization Address City/[facility]/ZIP [facility] Phon e Number [facility] - [address] Prothrombin Time (PT) (10/20/2019 12:57 PM MAINTENANCE TEAM LEADER) athologist Signature Prothrombin 11.4 9.4 - 12.5 10/20/2019 DTL Time, P sec 1:37 PM MAINTENANCE TEAM LEADER INR 1.0 0.9 - 1.1 10/20/2019 DTL 1:37 PM MAINTENANCE TEAM LEADER Comment: ----ADDITIONAL INFORMATION---- Standard intensity warfarin therapeutic range: 2.0 to 3.0 ?? High intensity warfarin therapeutic rang e: 2.5 to 3.5 Specimen Anatomical Collection Method Collection Time Receive d Time (Source) Location / / Volume Laterality Blood (Blood, 10/20/2019 12:57 10/20/2019 1:18 Venous) PM MAINTENANCE TEAM LEADER PM MAINTENANCE TEAM LEADER Keisha Lopez APRN, C.N.P., M.S.N. LAB BLOOD ADD-ON Performing Organization Address City/[facility] Phon e Number [facility] - 200 [place], [place] [address] [place] [address] (ABNORMAL) CBC without Differential (10/20/2019 12:57 PM MAINTENANCE TEAM LEADER) [facility] gist Method Time Signature Hemoglobin 12.4 (L) 13.2 - 10/20/2019 DTL 16.6 g/dL 1:27 PM MAINTENANCE TEAM LEADER Hematocrit 36.4 (L) 38.3 - 10/20/2019 DTL 48.6 % 1:27 PM MAINTENANCE TEAM LEADER Erythrocytes 4.15 (L) 4.35 - 10/20/2019 DTL 5.65 1:27 PM MAINTENANCE TEAM LEADER x10(12)/L MCV 87.7 78.2 - 10/20/2019 DTL 97.9 fL 1:27 PM MAINTENANCE TEAM LEADER RBC Distrib Width 12.7 11.8 - 10/20/2019 DTL 14.5 % 1:27 PM MAINTENANCE TEAM LEADER Platelet Count 257 135 - 317 10/20/2019 DTL x10(9)/L 1:27 PM MAINTENANCE TEAM LEADER Leukocytes 7.8 3.4 - 9.6 10/20/2019 DTL x10(9)/L 1:27 PM MAINTENANCE TEAM LEADER Specimen Anatomical Collection Method Collection Time Receive d Time (Source) Location / / Volume Laterality Blood (Blood, 10/20/2019 12:57 10/20/2019 1:18 Venous) PM MAINTENANCE TEAM LEADER PM MAINTENANCE TEAM LEADER Keisha Lopez APRN, C.N.P., M.S.N. LAB BLOOD ADD-ON Performing Organization Address City/[facility] Phon e Number [facility] - [address] [address] [facility] [address] documented in this encounter Visit Diagnoses Diagnosis Pancreatitis Chronic (HCC) Exocrine Pancreatic Insufficiency documented in this encounter Additional Health Concerns Assessment Noted Time PHQ-9 Depression Total Score: 18 04/28/2018 11:27 AM C DT documented as of this encounter Care Teams Camera Person Relationship Specialty Start Date End Date Ewa Alejandro M.D. PCP - General 03/13/17 01/09/[address] [phone] documented as of this encounter
--- OUTSIDE RECORDS SUMMARY | 2022-05-28 07:21 | XMS_ITS | Encounter Summary ---
:1945 Author Organization [facility] Address 200 [place] [address] Care Team Providers Name Role Phone Ewa Alejandro M.D. Primary Care Provider [phone] Reason for Referral Outpatient (Routine) - Closed Specialty Diagnoses / Procedures Referred By Contact Refer red To Contact Nephrology and Rob Cantu [place] [facility] Hypertension M.DMauro 200 [place] [address] Referral ID Status Reason Start Date Expiration Date Visits Requ ested Visits Authorized [id number] Closed 02/09/2019 02/09/2020 1 1 Outpatient (Routine) - Closed Specialty Diagnoses / Procedures Referred By Contact Refer anna To Contact Sleep Medicine Diagnoses Hypertension Essential Primary Abnormal Oximetry Rob Cantu M.D. [facility] 200 [place] [address] Referral ID Status Reason Start Date Expiration Date Visits V isits Requested Authorized [id number] Closed Specialty 02/09/2019 02/09/2020 1 1 Services Required Reason for Visit Outpatient (Routine) - Closed Specialty Diagnoses / Procedures Referred By Contact Madelaine castillo To Contact Nephrology and Rob Cantu [place] [facility] M.DMauro 200 [place] [address] Referral ID Status Reason Start Date Expiration Date Visits Requ ested Visits Authorized [id number] Closed 01/26/2019 01/26/2020 1 1 Encounter Details Date Type Department Care Team Description 02/09/2019 Office Visit Division of Nephrology Alondra Rob Hyp ertension Essential Primary (Primary Dx); and Hypertension in Pato Barber Abnormal Oximetry [place], [place] 200 [facility] 200 [place] [address] [phone] Social History Tobacco Use Types Packs/Day Years [...] Priority Associated Diagnoses Order S [facility] Sleep Medicine - Outpatient Referral [...] documented as of this encounter Care Teams Weather Observer Relationship Specialty Start Date End Date Ewa Alejandro M.D. PCP - General 6/15/17 [address] [place] [address] documented as of this encounter
--- OUTSIDE RECORDS SUMMARY | 2022-05-28 07:21 | XMS_ITS | Encounter Summary ---
:1945 Author Organization [facility] Address [address] [place] [address] Care Team Providers Name Role Phone Ewa Alejandro M.D. Primary Care Provider [phone] Encounter Details Date Type Department Care Team Description 10/11/2019 Hospital Encounter Department of Parminder, Pancreat itis Chronic Laboratory Medicine Rhoda Stein (HCC) and Pathology, [address] [place] [address] in [place], [place] [address] [place] [address] [place], [place] (Work) [phone] Social History Tobacco Use Types Packs/Day Years [...] do you attend advent or Never 2021 synagogue services? Do you [...] have completed or the highest Martin, MEd, PILLOW FILLER, CAYDEN) degree you have received? Sex [...] mouth 0 10/1305/06/2020 100 mg tablet daily. [id number] Take 2 capsules by 240 capsule 3 [...] 05/01/2020 reader (FREESTYLE ILEANA 14 DAY READER) [facility] flash glucose sensor [...] Chronic Results for this VITAMIN E, S OVEN HEATER HELPER ([facility]) procedure are i n the results section. 25-HYDROXYVITAMIN Routine 10/11/2019 9:52 AM Pancreatitis Manager Planning hilary Results for this D2 AND D3, S OVEN HEATER HELPER ([facility]) procedure are i n the results section. HEMOGLOBIN A1C, B Routine 10/11/2019 9:52 AM Pancreatitis Manager Planning hilary Results for this OVEN HEATER HELPER ([facility]) procedure are i n the results section. GLUCOSE, FASTING, Routine 10/11/2019 9:52 AM Pancreatitis Manager Planning hilary Results for this S/P OVEN HEATER HELPER ([facility]) procedure are i n the results section. CREATININE WITH Routine 10/11/2019 9:52 AM Pancreatitis Chroni c Results for this EGFR, S/P OVEN HEATER HELPER ([facility]) procedure are i n the results section. documented in this encounter Results (ABNORMAL) 25-Hydroxyvitamin D2 and D3 (10/11/2019 9:52 AM OVEN HEATER HELPER) athologist Signature 25-Hydroxy D2 <4.0 ng/mL 10/12/2019 SDSC 9:47 PM OVEN HEATER HELPER 25-Hydroxy D3 15 ng/mL 10/12/2019 [facility] 9:47 PM OVEN HEATER HELPER 25-Hydroxy D 15 (L) ng/mL 10/12/2019 [facility] Total 9:47 PM OVEN HEATER HELPER Comment: Interpretation: 10-19 ng/mL (mild to mod erate deficiency) ----REFERENCE VALUE---- 25-HYDROXY D TOTAL (D2+D3) Optimum level s in the healthy population are 20-50, patients with bone disease may benefit from higher levels within this r stan. ----ADDITIONAL INFORMATION---- This test was developed and its performa nce characteristics determined by [facility] in a manner consistent with CLIA requirements. This test has not been cleared or approved by the [place] d and Drug Administration. Specimen Anatomical Collection Method Collection Time Receive d Time (Source) Location / / Volume Laterality Blood (Blood, 10/11/2019 9:52 AM 10/11/19 1:30 Venous) OVEN HEATER HELPER PM OVEN HEATER HELPER Emil Zurita M.D. LAB BLOOD ADD-ON Performing Organization Address City/[facility] Phon e Number [facility] [address] AYALA [place] [address] SUPPORT [facility] [place] [address] Laboratory Medicine and Pathology [address] [place] [address] Dr. AYALA Vitamin A and Vitamin E (10/11/2019 9:52 AM OVEN HEATER HELPER) P athologist Signature Vitamin A 53.5 32.5 - 78.0 10/12/2019 [facility] mcg/dL 10:37 PM OVEN HEATER HELPER Comment: ----ADDITIONAL INFORMATION---- This test was developed and its performa nce characteristics determined by [facility] in a manner consistent with CLIA requirements. This test has not been cleared or approved by the [place]. [place] d and Drug Administration. A-Tocopherol, Vitamin E 10.9 5.5 - 17.0 mg/L 10/12/2019 1:35 PM OVEN HEATER HELPER [facility] Specimen Anatomical Collection Method Collection Time Receive d Time (Source) Location / / Volume Laterality Blood (Blood, 10/11/2019 9:52 AM 10/11/19 4:31 Venous) OVEN HEATER HELPER PM OVEN HEATER HELPER Emil Zurita M.D. LAB BLOOD NON ADD-ON Performing Organization Address City/[facility] Phon e Number [facility] [address] [place] [address] Dr AYALA [place], [place] [address] SUPPORT CENTER [facility] [place] [address] Laboratory Medicine and Pathology [address] [place] [address] Dr. AYALA (ABNORMAL) Glucose, Fasting (10/11/2019 9:52 AM OVEN HEATER HELPER) P athologist Signature Glucose, P 149 (H) 70 - 100 10/11/2019 DTL mg/dL 11:01 AM OVEN HEATER HELPER Last Intake 17 hr 10/11/2019 DTL 10:14 AM OVEN HEATER HELPER Specimen Anatomical Collection Method Collection Time Receive d Time (Source) Location / / Volume Laterality Blood (Blood, 10/11/2019 9:52 AM 10/11/19 20 Venous) OVEN HEATER HELPER 10:14 AM OVEN HEATER HELPER Emil Zurita M.D. LAB BLOOD NON ADD-ON Performing Organization Address City/[facility]/ZIP Code Phon e Number [facility] - [address] [place], [place] [address] [facility] [place] [address] Laboratories[address] (ABNORMAL) Hemoglobin A1c (10/11/2019 9:52 AM OVEN HEATER HELPER) Analysis Performed At Patho logist Time Signature Hemoglobin A1c, 10.2 (H) 4.0 - 5.6 10/11/2019 DTL B % 12:15 PM OVEN HEATER HELPER Comment: Hemoglobin A1c values greater than or eq ual to 6.5 percent are diagnostic for diabetes mellitus. ?? Diagnosis should be confirmed by repeat testing. ??In diabet ic patients, HbA1c goals should be discussed with healthcar e provider. Specimen Anatomical Collection Method Collection Time Receive d Time (Source) Location / / Volume Laterality Blood (Blood, 10/11/2019 9:52 AM 10/11/19 20 Venous) OVEN HEATER HELPER 10:14 AM OVEN HEATER HELPER Emil Zurita M.D. LAB BLOOD ADD-ON Performing Organization Address City/State/ZIP Code Phon e Number [facility] - 200 [place], [place] [address] [facility] [place] [address] [address] (ABNORMAL) Creatinine with Estimated GFR (10/11/2019 9:52 AM OVEN HEATER HELPER) P athologist Signature Creatinine 1.26 0.74 - 10/11/2019 DTL 1.35 mg/dL 10:54 AM OVEN HEATER HELPER eGFR-Non 55 (L) >=60 10/11/2019 DTL Black/ mL/min/BSA 10:54 AM OVEN HEATER HELPER [place] Comment: ----ADDITIONAL INFORMATION---- Estimated GFR calculated using the 2009 CKD_EPI creatinine equation. eGFR-Black/ 64 >=60 mL/min/BSA 2019 10:54 AM OVEN HEATER HELPER DTL Comment: ----ADDITIONAL INFORMATION---- Estimated GFR calculated using the 2009 CKD_EPI creatinine equation. Specimen Anatomical Collection Method Collection Time Receive d Time (Source) Location / / Volume Laterality Blood (Blood, 10/11/2019 9:52 AM 10/11/19 20 Venous) OVEN HEATER HELPER 10:14 AM OVEN HEATER HELPER Emil Zurita M.D. LAB BLOOD ADD-ON Performing Organization Address City/State/ZIP Code Phon e Number [facility] - [address] [place], [place] [address] [facility] [place] [address] Laboratories-[facility] [address] documented in this encounter Visit Diagnoses Diagnosis Pancreatitis Chronic (HCC) documented in this encounter Additional Health Concerns Assessment Noted Time PHQ-9 Depression Total Score: 18 04/28/2018 11:27 AM C DT documented as of this encounter Care Teams Swat Team Member Relationship Specialty Start Date End Date Ewa Alejandro M.D. PCP - General 03/13/17 01/09/20 [address] [place] [phone] documented as of this encounter
--- OUTSIDE RECORDS SUMMARY | 2022-05-28 07:21 | XMS_ITS | Encounter Summary ---
:1945 Author Organization [facility] Address [address] [place] [address] Care Team Providers Name Role Phone Ewa Alejandro M.D. Primary Care Provider [phone] Encounter Details Date Type Department Care Team Description 02/08/2019 Diagnostic Division of Pulmonary Rob Cantu rtension Essential Primary; Medicine in Sunil Hale M.D. Sleep Apnea [place] [address] [facility] [address] [place] [address] [phone] Social History Tobacco Use Types Packs/Day Years [...] do you attend presybeterian or Never 2021 synagogue services? Do you [...] Code Phon e Number [facility] EAP documented in this encounter Visit Diagnoses Diagnosis Hypertension Essential Primary Sleep Apnea documented in this encounter Additional Health Concerns Assessment Noted Time PHQ-9 Depression Total Score: 18 04/28/2018 11:27 AM C DT documented as of this encounter Care Teams Digital Retoucher Relationship Specialty Start Date End Date Ewa Alejandro M.D. PCP - General 03/13/17 01/09/20 [address] [place] [phone] documented as of this encounter
--- OUTSIDE RECORDS SUMMARY | 2022-05-28 07:21 | XMS_ITS | Encounter Summary ---
:1945 Author Organization [facility] Address [address] [place] [address] Care Team Providers Name Role Phone Ewa Alejandro M.D. Primary Care Provider [phone] Reason for Referral MRI/CAT/PET Scan (Routine) - Closed Specialty Diagnoses / Procedures Referred By Contact Refer red To Contact Radiology Diagnoses Pancreatitis Chronic (HCC) Emil Zurita M.D. [facility] Procedures CT Abdomen Pelvis with IV Contrast WV CT ABD&PELVIS W CNTRST HC CT ABD&PELVIS W CNTRST WV CT ABD&PELVIS W CNTRST [address] [place], [place] [address] Referral ID Status Reason Start Date Expiration Date Visits Requ ested Visits Authorized [id number] Closed 09/15/2018 09/15/2019 1 1 TICIAN APPRENTICE Reason for Visit Outpatient (Routine) - Closed Specialty Diagnoses / Procedures Referred By Contact Refer red To Contact Radiology Diagnoses Pancreatitis Chronic (HCC) [place] [address] Emil Zurita M.D. [address] [place] [address] ABDOMEN PELVIS WITH IV CONTRAST RAD CT ABDOMEN PELVIS [address] [facility] [address] [place] [address] [place] [address] Fax: Referral ID Status Reason Start Date Expiration Date Visits Requ ested Visits Authorized [id number] Closed 10/11/2019 10/10/2020 1 1 Encounter Details Date Type Department Care Team Description 10/11/2019 Hospital Encounter Department of Camilla Zurita Chronic Radiology, Agustín Stein M.D. ([facility]) Building, in [address] [place] [address] [place] [address] [place], [place] [phone] (Work) [phone] Social History Tobacco Use Types Packs/Day Years [...] do you attend anabaptist or Never 2021 spiritism services? Do you [...] or the highest Martin, MEd, VICE PRESIDENT OF CONSULTING SERVICES, CAYDEN) degree you have received? Sex [...] 188 cm (6' 2) 10/11/2019 10:27 AM BEAUTICIAN APPRENTICE Body Mass Index - - documented in [...] mouth 0 10/1305/06/2020 100 mg tablet daily. [id number] Take 2 capsules by 240 capsule 3 [...] 05/01/2020 reader (FREESTYLE ILEANA 14 DAY READER) [facility] flash glucose sensor Use as directed. 6 [...] context of radiology care priorto contrast/medication administration. TICIAN APPRENTICE documented in this encounter Plan of [...] this WITH IV CONTRAST (most inpatients AM BEAUTICIAN APPRENTICE Chronic (HCC) proced ure are in and all the results outpatients) section. CREATININE, POCT, Routine 10/11/2019 10:40 Result s for this B AM BEAUTICIAN APPRENTICE procedure are i n the results section. CREATININE, POCT, Routine 10/11/2019 10:40 Result s for this B AM BEAUTICIAN APPRENTICE procedure are i n the results section. documented in this encounter Results CT Abdomen Pelvis with IV Contrast (10/11/2019 11:05 AM BEAUTICIAN APPRENTICE) Anatomical Region Laterality Modality Abdomen, Pelvis, Abdominal RST LOS, N/A Comp uted Tomography, Computed Abdominal ARZ LOS, Abdominal FLA LOS Logan ography Specimen (Source) Anatomical Collection Method Collection Time Re ceived Time Location / / Volume Laterality 10/11/2019 1:13 PM BEAUTICIAN APPRENTICE Impressions 10/11/2019 1:24 PM BEAUTICIAN APPRENTICE No significant change from the most recent prior study; chronic changes of pancreatitis. Narrative 10/11/2019 1:24 PM BEAUTICIAN APPRENTICE EXAM: ??CT ABDOMEN PELVIS WITH IV CONTRAST [...] CT PROCEDURES Creatinine, POCT (10/11/2019 10:40 AM BEAUTICIAN APPRENTICE) athologist Signature Creatinine, 1.2 0.7 - 1.4 10/11/2019 PCDT POCT, B mg/dL 10:44 AM BEAUTICIAN APPRENTICE Comment: ----ADDITIONAL INFORMATION---- Performed at the Point of Care Specimen Anatomical Collection Method Collection Time Receive d Time (Source) Location / / Volume Laterality Blood 10/11/2019 10:40 10/11/2019 AM BEAUTICIAN APPRENTICE 10:44 AM BEAUTICIAN APPRENTICE Unknown Provider LAB POCT ORDERABLES - DEVICE Performing Organization Address City/State/ZIP Code Phon e Number POC [place] [facility] [address] [place] [address] LABS PCDT [facility] Laboratories - [place], [place] [id number] [place] [address] (ABNORMAL) Creatinine, POCT (10/11/2019 10:40 AM BEAUTICIAN APPRENTICE) P athologist Signature eGFR-Black/Afri 67 >=60 10/11/2019 PCDT can Cuban, mL/min/BSA 10:44 AM BEAUTICIAN APPRENTICE POCT Comment: ----ADDITIONAL INFORMATION---- Estimated GFR calculated using the 2009 CKD_EPI creatinine equation. eGFR Non-Black/ 58 (L) >=60 mL/min/BSA 10/11/2019 10:44 AM BEAUTICIAN APPRENTICE PCDT Cuban, POCT Comment: ----ADDITIONAL INFORMATION---- Estimated GFR calculated using the 2009 CKD_EPI creatinine equation. Specimen Anatomical Collection Method Collection Time Receive d Time (Source) Location / / Volume Laterality Blood 10/11/2019 10:40 10/11/2019 AM BEAUTICIAN APPRENTICE 10:44 AM BEAUTICIAN APPRENTICE Unknown Provider LAB POCT ORDERABLES - DEVICE Performing Organization Address City/State/ZIP Code Phon e Number POC [place] [facility] [address] [place] [address] LABS PCDT [facility] [place] [address] Agency POC [address] documented in this encounter Visit Diagnoses Diagnosis Pancreatitis Chronic (HCC) documented in this encounter Administered Medications Inactive Administered Medications - up to 3 most recent administrations Medication Order MAR Action Action Date Dose Rate Site iohexol 300 mg iodine/mL solution Given 10/11/2019 10:56 AM BEAUTICIAN APPRENTICE 140 mL 1-200 mL (OMNIPAQUE) 1-200 mL, intravenous, Once in imaging, contrast, Starting on Fri10/11/19 at 1022, For 1 dose, Imaging Protocol Orders, Dose per Radiant Medication Guidelines sodium chloride (PF) 0.9 % injection 1-1 00 mL Given 10/11/2019 10:56 AM BEAUTICIAN APPRENTICE 50 mL 1-100 mL, intravenous, Once, On Fri10/11/19 at 1030, For 1 dose, Imaging Protocol Orders documented in this encounter Additional Health Concerns Assessment Noted Time PHQ-9 Depression Total Score: 18 04/28/2018 11:27 AM C DT documented as of this encounter Care Teams Physical Aerodynamicist Relationship Specialty Start Date End Date Ewa Alejandro M.D. PCP - General 03/13/17 01/09/20 [address] [place] [phone] documented as of this encounter
--- OUTSIDE RECORDS SUMMARY | 2022-05-28 07:21 | XMS_ITS | Encounter Summary ---
:1945 Author Organization [facility] Address [address] [place] [address] Care Team Providers Name Role Phone Ewa Alejandro M.D. Primary Care Provider [phone] Encounter Details Date Type Department Care Team Description 01/21/2019 Clinical Communication Department of [facility], [facility], [facility], [facility], [address] [place], [place] 300 [facility] [address] [place], [place] [phone] [address] (Work) [phone] Social History Tobacco Use Types Packs/Day Years [...] do you attend episcopalian or Never 2021 samaritan services? Do you [...] changes that virgilios been going through lately- senior living- that may have started his anxiety and sleeping issues lately.... documented in this encounter Plan of Treatment Not on filedocumented as of this encounter Visit Diagnoses Not on filedocumented in this encounter Additional Health Concerns Assessment Noted Time PHQ-9 Depression Total Score: 18 04/28/2018 11:27 AM C DT documented as of this encounter Care Teams Quality Tech Relationship Specialty Start Date End Date Ewa Alejandro M.D. PCP - General 03/13/17 01/09/20 [address], [place] [phone] documented as of this encounter
--- OUTSIDE RECORDS SUMMARY | 2022-05-28 07:21 | XMS_ITS | Encounter Summary ---
:1945 Author Organization [facility] Address [address] [place] [address] Care Team Providers Name Role Phone Ewa Alejandro M.D. Primary Care Provider [phone] Encounter Details Date Type Department Care Team Description 07/19/2019 Clinical Communication Division of Parminder Gastroenterology in Rhoda Stein [place], [place] [address] [facility] [address] [place] [address] [phone] Social History Tobacco Use Types Packs/Day Years [...] do you attend denominational or Never 2021 jain services? Do you [...] have completed or the highest Martin, Sirena, GARMENT SEWER HAND, [place]) degree you have received? Sex Assigned at Date Recorded Male 05/21/2018 2:34 PM CDT documented as of this encounter Plan of Treatment Not on filedocumented as of this encounter Visit Diagnoses Not on filedocumented in this encounter Additional Health Concerns Assessment Noted Time PHQ-9 Depression Total Score: 18 04/28/2018 11:27 AM C DT documented as of this encounter Care Teams Extension Service Specialist In Charge Relationship Specialty Start Date End Date Ewa Alejandro M.D. PCP - General 03/13/17 01/09/[address] [phone] documented as of this encounter
--- OUTSIDE RECORDS SUMMARY | 2022-05-28 07:21 | XMS_ITS | Encounter Summary ---
:1945 Author Organization [facility] Address [address] [place] [address] Care Team Providers Name Role Phone Ewa Alejandro M.D. Primary Care Provider Encounter Details Date Type Department Care Team Description 08/30/2019 Clinical Communication Department of Family Kirill Torres [facility], Ewa Barclay, Clinic, in [place] [address] [place] [phone] Social History Tobacco Use Types Packs/Day Years [...] completed or the highest Martin, MEd, MANAGER MEDICAL DEVICE, [place]) degree you have received? Sex Assigned [...] patient back Name of Medication (if relevant): DBIRTH AND INFANT CARE TEACHER documented in this encounter Plan of Treatment Not on filedocumented as of this encounter Visit Diagnoses Not on filedocumented in this encounter Additional Health Concerns Assessment Noted Time PHQ-9 Depression Total Score: 18 04/28/2018 11:27 AM C DT documented as of this encounter Care Teams Fur Dry Cleaner Hand Relationship Specialty Start Date End Date Ewa Alejandro M.D. PCP - General 03/13/17 01/09/20 [address] [address] documented as of this encounter
--- OUTSIDE RECORDS SUMMARY | 2022-05-28 07:21 | XMS_ITS | Encounter Summary ---
:1945 Author Organization [facility] Address [address] [place] [address] Care Team Providers Name Role Phone Ewa Alejandro M.D. Primary Care Provider [phone] Encounter Details Date Type Department Care Team [...] do you attend pentecostalism or Never 2021 anabaptism services? Do you [...] have completed or the highest Martin, MEd, HORTICULTURAL SERVICES SUPERVISOR, [place]) degree you have received? Sex [...] as of this encounter Care Teams Oil Boiler Relationship Specialty Start Date End Date Ewa Alejandro M.D. PCP - General 03/13/17 01/09/20 [address] [place] [address] documented as of this encounter
--- OUTSIDE RECORDS SUMMARY | 2022-05-28 07:21 | XMS_ITS | Encounter Summary ---
:1945 Author Organization [facility] Address [address] [place] [address] Care Team Providers Name Role Phone Ewa Alejandro M.D. Primary Care Provider [phone] Reason for Visit Reason Comments Pancreas Medication Question Encounter Details Date Type Department Care Team Description 01/12/2019 Clinical Division of Parminder Pancreas; Communication Gastroenterology in [place], [place] Pat[place] Question [address] [facility] [address] [place] [address] [place] [address] Social History Tobacco Use Types Packs/Day Years [...] do you attend baptism or Never 2021 zoroastrianism services? Do you [...] as of this encounter Care Teams Air And Hydronic Balancing Technician Relationship Specialty Start Date End Date Ewa Alejandro M.D. PCP - General 03/13/17 01/09/20 [address] [place] [phone] documented as of this encounter
--- OUTSIDE RECORDS SUMMARY | 2022-05-28 07:21 | XMS_ITS | Encounter Summary ---
:1945 Author Organization [facility] Address [address] [place] [address] Care Team Providers Name Role Phone Ewa Alejandro M.D. Primary Care Provider [phone] Reason for Referral Outpatient (Routine) - Closed Specialty Diagnoses / Procedures Referred By Contact Madelaine castillo To Contact Nephrology and Rob Cantu [facility] Hypertension [place] [address] [place] [address] Referral ID Status Reason Start Date Expiration Date Visits Requ ested Visits Authorized [id number] Closed 11/24/2018 11/24/2019 1 1 RUCTIONAL DESIGN TECHNOLOGIST Reason for Visit Outpatient (Routine) - Closed Specialty Diagnoses / Procedures Referred By Contact Madelaine castillo To Contact Nephrology and Diagnoses Hypertensive Heart And 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); Hypertension in 200 Hyperlipidem ia On Treatment [facility] 200 [facility] [address] [phone] Social History Tobacco Use Types Packs/Day Years [...] Comments Blood Pressure 152/81 11/24/2018 11:20 AM INSTRUCTIONAL DESIGN TECHNOLOGIST Pulse 77 11/24/2018 11:20 AM INSTRUCTIONAL DESIGN TECHNOLOGIST Temperature - - Respiratory Rate - - Oxygen Saturation - - Inhaled Oxygen Concentration - - Weight 108 kg (238 lb 15.7 oz) 11/24/2018 10:21 AM INSTRUCTIONAL DESIGN TECHNOLOGIST Height - - Body Mass Index 30.83 11/09/2018 8:55 AM INSTRUCTIONAL DESIGN TECHNOLOGIST documented in this encounter Consult Notes Rob [...] agreement with this plan. Rob Cantu M.D. RUCTIONAL DESIGN TECHNOLOGIST documented in this encounter Plan of [...] documented as of this encounter Care Teams Pricing Manager Relationship Specialty Start Date End Date Ewa Alejandro M.D. PCP - General 03/13/17 01/09/20 [address] [phone] documented as of this encounter
--- OUTSIDE RECORDS SUMMARY | 2022-05-28 07:21 | XMS_ITS | Encounter Summary ---
:1945 Author Organization [facility] Address [address] [place] [address] Care Team Providers Name Role Phone Ewa Alejandro M.D. Primary Care Provider Encounter Details Date Type Department Care Team Description 01/21/2019 Orders Only Department of Family Mata , Medicine, [facility] M[facility] in [facility] [address] [place] [phone] (Wo rk) Social History Tobacco Use Types [...] you attend roman catholic or Never 2021 latter-day services? Do you [...] documented as of this encounter Care Teams Starch Dumper Relationship Specialty Start Date End Date Ewa Alejandro M.D. PCP - General 03/13/17 01/09/[address] [address] documented as of this encounter
--- OUTSIDE RECORDS SUMMARY | 2022-05-28 07:21 | XMS_ITS | Encounter Summary ---
:1945 Author Organization [facility] Address [address] [place] [address] Care Team Providers Name Role Phone Ewa Alejandro M.D. Primary Care Provider [phone] Encounter Details Date Type Department Care Team Description 02/18/2019 Clinical Communication Division of Nicholas Triana, Endocrinology in [place], [place] [address] [facility] [address] [place] [address] [phone] Social History Tobacco Use Types Packs/Day Years [...] do you attend scientologist or Never 2021 mu-ism services? Do you [...] as of this encounter Care Teams Credit Rating Checker Relationship Specialty Start Date End Date Ewa Alejandro M.D. PCP - General 03/13/17 01/09/[address] [address] documented as of this encounter
--- OUTSIDE RECORDS SUMMARY | 2022-05-28 07:21 | XMS_ITS | Encounter Summary ---
:1945 Author Organization [facility] Address [address] [place] [address] Care Team Providers Name Role Phone Ewa Alejandro M.D. Primary Care Provider [phone] Reason for Referral MRI/CAT/PET Scan (Routine) - Closed Specialty Diagnoses / Procedures Referred By Contact Refer red To Contact Radiology Diagnoses Pancreatitis Chronic (HCC) Daisy Liu M.D. [place] Procedures CT Abdomen without and with IV Contrast and Pelvis with IV Con CT Abdomen Pelvis without and with IV Contrast 200 [place], [place] [address] Referral ID Status Reason Start Date Expiration Date Visits Requ ested Visits Authorized [id number] Closed 06/24/2019 06/23/2020 1 1 Reason for Visit MRI/CAT/PET Scan (Routine) - Closed Specialty Diagnoses / Procedures Referred By Contact Refer red To Contact Radiology Diagnoses Pancreatitis Chronic (HCC) Daisy Liu M.D. [facility] Procedures CT Abdomen without and with IV Contrast and Pelvis with IV Con CT Abdomen Pelvis without and with IV Contrast [address] [place], [place] [address] Referral ID Status Reason Start Date Expiration Date Visits Requ ested Visits Authorized [id number] Closed 06/24/2019 06/23/2020 1 1 Encounter Details Date Type Department Care Team Description 06/30/2019 Hospital Encounter Department of Daisy Liu Pancreat itis Chronic Radiology, Leanne Diaz M.D. ([facility]) Building, in [address] [place] [address] [address] [phone] [place], [place] (Work) [phone] Social History Tobacco Use Types Packs/Day Years [...] do you attend sabianism or Never 2021 orthodox services? Do you [...] or the highest Martin, MEd, PROFESSOR OF PSYCHIATRY, [place]) degree you have received? Sex Assigned [...] Body Mass Index 29.42 11/09/2018 8:55 AM SERVICE PARTS DRIVER documented in this encounter Medications at Time [...] mouth 0 10/1305/06/2020 100 mg tablet daily. dcphej-awjrqffe-irefzka Take 2 capsules by 240 capsule 3 [...] 05/01/2020 reader (FREESTYLE ILEANA 14 DAY READER) [facility] flash glucose sensor Use as directed. 6 [...] POCT ORDERABLES - DEVICE Performing Organization Address City/[facility] Phon e Number POC WHATELY PERFORMING LABS 200 [place] [address] (ABNORMAL) Creatinine, POCT (06/30/2019 3:47 PM CDT) athologist Signature eGFR-Black/Afri 68 >=60 06/30/2019 can Scottish, mL/min/BSA 3:54 PM CDT POCT Comment: ----ADDITIONAL [...] POCT ORDERABLES - DEVICE Performing Organization Address City/[facility] Phon e Number POC RST [facility] 200 [place], [place] [address] LABS documented in this encounter Visit Diagnoses [...] documented as of this encounter Care Teams Pals Specialist Relationship Specialty Start Date End Date Ewa Alejandro M.D. PCP - General 03/13/17 01/09/20 [address] [place] [address] documented as of this encounter
--- OUTSIDE RECORDS SUMMARY | 2022-05-28 07:21 | XMS_ITS | Encounter Summary ---
:1945 Author Organization [facility] Address [address] [place] [address] Care Team Providers Name Role Phone Ewa Alejandro M.D. Primary Care Provider [phone] Reason for Referral Outpatient (Routine) - Closed Specialty Diagnoses / Procedures Referred By Contact Refer anna To Contact Nephrology and Rob Cantu [place] [facility] Pato 200 [place] [address] Referral ID Status Reason Start Date Expiration Date Visits Requ ested Visits Authorized [id number] Closed 02/16/2019 02/16/2020 1 1 Reason for Visit Outpatient (Routine) - Closed Specialty Diagnoses / Procedures Referred By Contact Madelaine castillo To Contact Nephrology and Rob Cantu [place] [facility] Neto.DMauro 200 [place] [address] Referral ID Status Reason Start Date Expiration Date Visits Requ ested Visits Authorized [id number] Closed 02/09/2019 02/09/2020 1 1 Encounter Details Date Type Department Care Team Description 02/16/2019 Office Visit Division of Nephrology Rob Cantu Hyp ertension Essential Primary (Primary Dx); and Hypertension in Pato Barber Abnormal Oximetry [place], [place] [address] [facility] [address] [place] [address] [phone] Social History Tobacco Use Types Packs/Day Years [...] do you attend holiness or Never 2021 restoration services? Do you [...] as of this encounter Care Teams Manager Core Relationship Specialty Start Date End Date Ewa Alejandro M.D. PCP - General 03/13/17 01/09/[address] [phone] documented as of this encounter
--- OUTSIDE RECORDS SUMMARY | 2022-05-28 07:21 | XMS_ITS | Encounter Summary ---
:1945 Author Organization [facility] Address [address] [place] [address] Care Team Providers Name Role Phone Ewa Alejandro M.D. Primary Care Provider Encounter Details Date Type Department Care Team Description 11/23/2018 Clinical Communication Department of [facility] in Ewa perales [place], [place] Pat[place] [address] [place] [address] [place], [place] [phone] [address] Social History Tobacco Use Types Packs/Day [...] do you attend adventist or Never 2021 restorationism services? Do you [...] documented as of this encounter Care Teams Cellulose Insulation Helper Relationship Specialty Start Date End Date Ewa Alejandro M.D. PCP - General 03/13/17 01/09/20 [address], [place] [address] documented as of this encounter
--- OUTSIDE RECORDS SUMMARY | 2022-05-28 07:21 | XMS_ITS | Encounter Summary ---
:1945 Author Organization [facility] Address [address] [place] [address] Care Team Providers Name Role Phone Ewa Alejandro M.D. Primary Care Provider [phone] Encounter Details Date Type Department Care Team Description 12/24/2018 Diagnostic Division of Nephrology Rob Cantu M.D. [address] [place] [address] Hypertensive Heart And and Hypertension in Meg Peralta Chronic Kidney Disease [place], [place] Without Heart Failure [address] [facility] And With Stage 2 (Mild) [place], [place] Chronic Kidney Disease [address] Social History Tobacco Use Types Packs/Day Years [...] documented as of this encounter Care Teams Lithograph Operator Relationship Specialty Start Date End Date Ewa Alejandro M.D. PCP - General 03/13/17 01/09/20 [address], [place] [address] documented as of this encounter
--- OUTSIDE RECORDS SUMMARY | 2022-05-28 07:21 | XMS_ITS | Encounter Summary ---
:1945 Author Organization [facility] Address [address] [place] [address] Care Team Providers Name Role Phone Ewa Alejandro M.D. Primary Care Provider [phone] Reason for Referral Outpatient (Routine) - Closed Specialty Diagnoses / Procedures Referred By Contact Refer red To Contact Endocrinology Diagnoses Diabetes Mellitus Type 2 With Diabetic Neuropathy (HCC) [facility] C.N.P., M.S.N. 200 [place] [address] Referral ID Status Reason Start Date Expiration Date Visits Requ ested Visits Authorized [id number] Closed 10/11/2019 10/10/2020 1 1 METRY NURSE Reason for Visit Outpatient (Routine) - Closed Specialty Diagnoses / Referred By Referred To Cont act Procedures Contact Gastroenterology and Emil Zurita Rocheste r [facility] Hepatology Pato 200 [place] [address] Referral ID Status Reason Start Date Expiration Date Visits Requ ested Visits Authorized [id number] Closed 09/15/2018 09/15/2019 1 1 Encounter Details Date Type Department Care Team Description 10/11/2019 Office Visit Division of Keisha Lopez C hronic (HCC) (Primary Dx); Gastroenterology in T, [employer], Diabetes Mellitus Type 2 With Diabetic Neuropathy (HCC); [place], [place] C.N.P., M.S.N. Change In Bowel Habit; [address] Exocrine Pancreatic Insufficiency (HCC); [place] [address] [place], [place] Loss Weight Abnormal; [phone] [phone] Stone Pancreatic Duct (HCC); [phone] Dilation Pancre atic Duct (HCC) (Work) Social [...] have completed or the highest Martin, MEd, TURFGRASS TECHNICIAN, [place]) degree you have received? Sex [...] states that he was exposed to Agent Appling in 1967 and subsequently developed asthma and [...] [place] [address] units [place] lipase per meal. He is [...] patient andcoordination of care as described above. METRY NURSE documented in this encounter Plan of Treatment Scheduled Referrals Name Type Priority Associated Order Schedule Diagnoses Endocrinology - Outpatient Referral Routine Diabetes Mellitus Expected: Diabetes consult Type 2 With 10/11/2019 (clinic) Diabetic Neuropathy (Approxi mate), ([facility]LY [facility]) Expires: 10/11/2022 documented as of this encounter [...] PCP - General 03/13/17 01/09/20 [address], [place] [phone] documented as of this encounter
--- OUTSIDE RECORDS SUMMARY | 2022-05-28 07:21 | XMS_ITS | Encounter Summary ---
:1945 Author Organization [facility] Address [address] [place] [address] Care Team Providers Name Role Phone Ewa Alejandro M.D. Primary Care Provider [phone] Reason for Visit Outpatient (Routine) - Closed Specialty Diagnoses / Procedures Referred By Contact Refer red To Contact Sleep Medicine Diagnoses Hypertension Essential Primary Abnormal Oximetry Rob Cantu M.D. [facility] [address] [place] [address] Referral ID Status Reason Start Date Expiration Date Visits V isits Requested Authorized [id number] Closed Specialty 02/09/2019 02/09/2020 1 1 Services Required Encounter Details Date Type Department Care Team Description 02/12/2019 Comprehensive Visit Center for [facility] Americo Padilla rtension Essential Primary; Medicine in Rachael Arias, Abnormal Oximet [facility] [address] [place] [address] [place] [address] [phone] Social History Tobacco Use Types Packs/Day Years [...] do you attend pentecostalism or Never 2021 christian services? Do you [...] of obstructive [place]5 [place] 6 years ago. He tried [...] I asked him to please call my pathology secretary/transcriptionist if he would like to schedule a [...] documented as of this encounter Care Teams Trim And Burr Operator Relationship Specialty Start Date End Date Ewa Alejandro M.D. PCP - General 03/13/17 01/09/[address] [address] documented as of this encounter
--- OUTSIDE RECORDS SUMMARY | 2022-05-28 07:21 | XMS_ITS | Encounter Summary ---
:1945 Author Organization [facility] Address [address] [place] [address] Care Team Providers Name Role Phone Ewa Alejandro M.D. Primary Care Provider [phone] Reason for Referral Outpatient (Routine) - Closed Specialty Diagnoses / Procedures Referred By Contact Madelaine castillo To Contact Nephrology and Rob Cantu [place] [facility] [place] 200 [place] [address] Referral ID Status Reason Start Date Expiration Date Visits Requ ested Visits Authorized [id number] Closed 12/24/2018 12/24/2019 1 1 Reason for Visit Outpatient (Routine) - Closed Specialty Diagnoses / Procedures Referred By Contact Madelaine castillo To Contact Nephrology and Rob Cantu [place] [facility] [place] 200 [place] [address] Referral ID Status Reason Start Date Expiration Date Visits Requ ested Visits Authorized [id number] Closed 11/24/2018 11/24/2019 1 1 Encounter Details Date Type Department Care Team Description 12/24/2018 Office Visit Division of Nephrology Rob Cantu Hyp ertension Essential and Hypertension in Pato Barber Primary (Primary Dx) [place], [place] [address] [facility] [address] [place] [address] [phone] Social History Tobacco Use Types Packs/Day Years [...] documented as of this encounter Care Teams Molding Sander Relationship Specialty Start Date End Date Ewa Alejandro M.D. PCP - General 03/13/17 01/09/20 [address] [address] documented as of this encounter
--- OUTSIDE RECORDS SUMMARY | 2022-05-28 07:21 | XMS_ITS | Encounter Summary ---
:1945 Author Organization [facility] Address [address] [place] [address] Care Team Providers Name Role Phone Ewa Alejandro M.D. Primary Care Provider [phone] Reason for Visit Reason Onset Date Comments Medicare Annual Wellness Visit with RN 06/18/2019 Encounter Details Date Type Department Care Team Description 06/18/2019 Clinical Communication Department of Estelle Chau Annual Community Internal L, R.N. Wellness Visit with Medicine in [address] [address] [place], [place] [phone] [address] (Work) [phone] Social History Tobacco Use Types Packs/Day Years [...] do you attend yazdanism or Never 2021 protestant services? Do you [...] have completed or the highest Martin, MEd, VOLLEYBALL PLAYER, [place]) degree you have received? Sex Assigned [...] documented as of this encounter Care Teams Baby Nurse Relationship Specialty Start Date End Date Ewa Alejandro M.D. PCP - General 03/13/17 01/09/[address] [address] documented as of this encounter
--- OUTSIDE RECORDS SUMMARY | 2022-05-28 07:21 | XMS_ITS | Encounter Summary ---
:1945 Author Organization [facility] Address [address] [place] [address] Care Team Providers Name Role Phone Ewa Alejandro M.D. Primary Care Provider [phone] Reason for Visit Reason Onset Date Comments Medication Problem 01/25/2019 Encounter Details Date Type Department Care Team Description 01/25/2019 Clinical Communication Division of Lissy Cantu Problem Nephrology and Rob Barber M.D. Hypertension in [address] [place] [address] [address] [facility] [address] [phone] Social History Tobacco Use Types Packs/Day Years [...] do you attend yarsani or Never 2021 tenriism services? Do you [...] as of this encounter Care Teams Plastic Extrusion Operator Relationship Specialty Start Date End Date Ewa Alejandro M.D. PCP - General 03/13/17 01/09/20 [address] [place] [address] documented as of this encounter
--- OUTSIDE RECORDS SUMMARY | 2022-05-28 07:21 | XMS_ITS | Encounter Summary ---
:1945 Author Organization [facility] Address [address] [place] [address] Care Team Providers Name Role Phone Ewa Alejandro M.D. Primary Care Provider [phone] Encounter Details Date Type Department Care Team Description 05/17/2019 Hospital Encounter Department of Dolores [facility] Laboratory Medicine Pato Mims Personal History in [address], [place] [address] Social History Tobacco Use [...] do you attend sikh or Never 2021 christian services? Do you [...] have completed or the highest Martin, MEd, ARMATURE CONNECTOR, [place]) degree you have received? Sex [...] mouth 0 10/1305/06/2020 100 mg tablet daily. ihgimz-lkrqlatd-jtzyxfl Take 2 capsules by 240 capsule 3 [...] 05/01/2020 reader (FREESTYLE ILEANA 14 DAY READER) [facility] flash glucose sensor Use as directed. 6 [...] Priority Date/Time Associated Diagnosis Comme nts CYTOLOGY NON-CIVIL ENGINEER LAND DEVELOPMENT Routine 05/17/2019 8:53 AM Cancer Bladder Res ults for this (SCHEDULED) CDT Personal History procedure a re in the results section. documented in this encounter Results (ABNORMAL) Cytology Non-CIVIL ENGINEER LAND DEVELOPMENT (Scheduled) (05/17/2019 8:53 AM CDT) Component Value Ref Test Analysis Performed At [facility] gist Range Method Time Signature [...] Phon e Number [facility] [address] [place] [address] CYTOLOGY documented in this encounter Visit Diagnoses Diagnosis Personal History Of Malignant Neoplasm O f Bladder documented in this encounter Additional Health Concerns Assessment Noted Time PHQ-9 Depression Total Score: 18 04/28/2018 11:27 AM C DT documented as of this encounter Care Teams Meal Grinder Tender Relationship Specialty Start Date End Date Ewa Alejandro M.D. PCP - General 03/13/17 01/09/20 [address] [phone] documented as of this encounter
--- OUTSIDE RECORDS SUMMARY | 2022-05-28 07:21 | XMS_ITS | Encounter Summary ---
:1945 Author Organization [facility] Address [address] [place] [address] Care Team Providers Name Role Phone Ewa Alejandro M.D. Primary Care Provider [phone] Encounter Details Date Type Department Care Team Description 06/30/2019 Documentation Division of Gastroenterology Ran Vilchis in [facility] cameron [address] [facility] [address] [place] [address] Social History Tobacco Use Types Packs/Day Years [...] do you attend mu-ism or Never 2021 pentecostal services? Do you [...] have completed or the highest Martin, MEd, SHREDDED FILLER MACHINE WRAPPER LAYER, [place]) degree you have received? Sex Assigned at Date Recorded Male 05/21/2018 2:34 PM CDT documented as of this encounter Plan of Treatment Not on filedocumented as of this encounter Visit Diagnoses Not on filedocumented in this encounter Additional Health Concerns Assessment Noted Time PHQ-9 Depression Total Score: 18 04/28/2018 11:27 AM C DT documented as of this encounter Care Teams Endorsement Clerk Relationship Specialty Start Date End Date Ewa Alejandro M.D. PCP - General 03/13/17 01/09/20 [address], [place] [address] documented as of this encounter
--- OUTSIDE RECORDS SUMMARY | 2022-05-28 07:21 | XMS_ITS | Encounter Summary ---
:[address] [facility] Address [address] [place] [address] Care Team Providers Name Role Phone Ewa Alejandro M.D. Primary Care Provider [phone] Reason for Referral MRI/CAT/PET Scan (Routine) - Closed Specialty Diagnoses / Procedures Referred By Contact Refer red To Contact Radiology Diagnoses Pancreatitis Chronic (HCC) Daisy Liu M.D. [facility] Procedures CT Abdomen without and with IV Contrast and Pelvis with IV Con CT Abdomen Pelvis without and with IV Contrast [address] [place] [phone] Referral ID Status Reason Start Date Expiration Date Visits Requ ested Visits Authorized [id number] Closed 06/24/2019 06/23/2020 1 1 Encounter Details Date Type Department Care Team Description 06/24/2019 Orders Only Division of Ran Eduardo Pancreatitis Chronic Gastroenterology in [address] [place] [address] (HCC) (Primary Dx) [place], [place] [address] [place] [address] [place] [address] Social History Tobacco Use Types Packs/Day [...] do you attend denominational or Never 2021 restoration services? Do you belong to any clubs or No 10/09/2021 organizations such as denominational groups, unions, MOBi-LEARN or athletic groups, or school groups? How [...] completed or the highest Martin, MEd, HOME COORDINATOR, [place]) degree you have received? Sex [...] documented as of this encounter Care Teams Fishing Captain Relationship Specialty Start Date End Date Ewa Alejandro M.D. PCP - General 03/13/17 01/09/20 [address] [place] [address] documented as of this encounter
--- OUTSIDE RECORDS SUMMARY | 2022-05-28 07:21 | XMS_ITS | Encounter Summary ---
:1945 Author Organization [facility] Address [address] [place] [address] Care Team Providers Name Role Phone Ewa Alejandro M.D. Primary Care Provider [phone] Reason for Visit Outpatient (Routine) - Closed Specialty Diagnoses / Procedures Referred By Contact Refer red To Contact Nephrology and Rob Cantu [place] [facility] Pato 200 [place] [address] Referral ID Status Reason Start Date Expiration Date Visits Requ ested Visits Authorized [id number] Closed 02/16/2019 02/16/2020 1 1 Encounter Details Date Type Department Care Team Description 03/23/2019 Office Visit Division of Nephrology Rob Cantu Hyp ertension Essential and Hypertension in Pato Barber Primary (Primary Dx) [place], [place] 200 [facility] 200 [place] [address] [phone] Social History Tobacco Use Types Packs/Day Years [...] do you attend denominational or Never 2021 hindu services? Do you belong to any clubs or No 10/09/2021 organizations such as denominational groups, unions, fraGuanghetang or athletic groups, or school groups? How [...] have completed or the highest Martin, MEd, PROCESSING ASSISTANT, [place]) degree you have received? Sex [...] Body Mass Index 29.92 11/09/2018 8:55 AM POLISHING MACHINE TENDER documented in this encounter Progress [...] documented as of this encounter Care Teams Annual Giving Manager Relationship Specialty Start Date End Date Ewa Alejandro M.D. PCP - General 03/13/17 01/09/[address] [address] documented as of this encounter
--- OUTSIDE RECORDS SUMMARY | 2022-05-28 07:21 | XMS_ITS | Encounter Summary ---
:1945 Author Organization [facility] Address [address] [place] [address] Care Team Providers Name Role Phone Ewa Alejandro M.D. Primary Care Provider [phone] Reason for Visit Reason Onset Date Comments Communication 12/22/2018 Comm Encounter Details Date Type Department Care Team Description 12/22/2018 Clinical Communication Department of Krzysztof Mitchell unication (Comm) [facility] [address] [place] [phone] Social History Tobacco Use Types Packs/Day Years [...] as of this encounter Care Teams Forest Landscape Ecology Professor Relationship Specialty Start Date End Date Ewa Alejandro M.D. PCP - General 03/13/17 01/09/20 [address] [place] [address] documented as of this encounter
--- OUTSIDE RECORDS SUMMARY | 2022-05-28 07:21 | XMS_ITS | Encounter Summary ---
:1945 Author Organization [facility] Address [address] [place] [address] Care Team Providers Name Role Phone Ewa Alejandro M.D. Primary Care Provider [phone] Reason for Referral Outpatient (Routine) - Closed Specialty Diagnoses / Procedures Referred By Contact Madelaine castillo To Contact Nephrology and Rob Cantu [place] [facility] Hypertension [address] [address] [place] [address] Referral ID Status Reason Start Date Expiration Date Visits Requ ested Visits Authorized [id number] Closed 01/26/2019 01/26/2020 1 1 Reason for Visit Outpatient (Routine) - Closed Specialty Diagnoses / Procedures Referred By Contact Madelaine castillo To Contact Nephrology and Rob Cantu [place] [facility] Hypertension [place] [address] [place] [address] Referral ID Status Reason Start Date Expiration Date Visits Requ ested Visits Authorized [id number] Closed 12/24/2018 12/24/2019 1 1 Encounter Details Date Type Department Care Team Description 01/26/2019 Office Visit Division of Nephrology Rob Cantu Hyp ertension Essential Primary (Primary Dx); and Hypertension in [place] Sleep Apnea [place], [place] [address] [facility] [address] [place] [phone] Social History Tobacco Use Types Packs/Day Years [...] do you attend confucianism or Never 2021 catholic services? Do you [...] Body Mass Index 30.83 11/09/2018 8:55 AM JEWEL GAUGER documented in this encounter Progress Notes Rob [...] Organization Address City/State/ZIP Code Phon e Number [facility] documented in this encounter Visit Diagnoses Diagnosis Hypertension Essential Primary - Primary Sleep Apnea documented in this encounter Additional Health Concerns Assessment Noted Time PHQ-9 Depression Total Score: 18 04/28/2018 11:27 AM C DT documented as of this encounter Care Teams Inside Sales Trainer Relationship Specialty Start Date End Date Ewa Alejandro M.D. PCP - General 03/13/17 01/09/[address] [place] [phone] documented as of this encounter
--- OUTSIDE RECORDS SUMMARY | 2022-05-28 07:21 | XMS_ITS | Encounter Summary ---
:1945 Author Organization [facility] Address [address] [place] [address] Care Team Providers Name Role Phone Ewa Alejandro M.D. Primary Care Provider [phone] Reason for Referral Outpatient (Routine) - Closed Specialty Diagnoses / Procedures Referred By Contact Refer red To Contact Diagnoses Personal History Of Malignant Neoplasm Of Bladder Prasanna Bernal M.D. [facility] Procedures Cystoscopy (specific provider) [address] [place] [address] Referral ID Status Reason Start Date Expiration Date Visits Requ ested Visits Authorized [id number] Closed 05/24/2019 05/23/2020 1 1 Reason for Visit Reason Comments Follow-up Encounter Details Date Type Department Care Team Description 05/24/2019 Procedure visit Department of Urology Prasanna Bernal, Cancer Bladder in [place] Personal History [place] [address] [place], [place] [phone] Social History Tobacco Use Types Packs/Day Years [...] do you attend zoroastrian or Never 2021 restorationism services? Do you [...] completed or the highest Martin, MEd, SENIOR DATA WAREHOUSE ARCHITECT, [place]) degree you have received? Sex [...] Priority Date/Time Associated Diagnosis Comme nts CYTOLOGY NON-NATURAL RESOURCE TECHNICIAN Routine 05/24/2019 9:09 AM Cancer Bladder Res ults for this CDT Personal History procedure a re in the results section. documented in this encounter Results Cytology Non-NATURAL RESOURCE TECHNICIAN (Scheduled) (11/18/2019 9:01 AM CAR FERRY MASTER) Component Value Ref Test Analysis Performed At [facility] gist Range Method Time Signature 11/19/2019 [facility] 10:23 AM CAR FERRY MASTER Fixative 50% REAGENT 11/19/2019 [facility] ALCOHOL 10:23 AM CAR FERRY MASTER Report Brady Goodrich MD 11/19/2019 [facility] electronically I verify that I have examined all relevant slides/ma terials 10:23 AM signed by for the specimen(s) and rendered or confirmed the diagnosis. CAR FERRY MASTER Gross Description Received 80 11/19/2019 [facility] ml of cloudy 10:23 AM yellow CAR FERRY MASTER alcohol fixed fluid. Collection VOIDED 11/19/2019 [facility] Procedure 10:23 AM CAR FERRY MASTER Source A. Urine, 11/19/2019 [facility] Clean Catch, 10:23 AM voided CAR FERRY MASTER Clinical History Z85.51 11/19/2019 [facility] 10:23 AM CAR FERRY MASTER Interpretation A. 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 10:23 A M CAR FERRY MASTER Specimen Anatomical Collection Method Collection Time Receive d Time (Source) Location / / Volume Laterality Varies (Urine, 11/18/2019 9:01 AM 020 7:13 Clean Catch) CAR FERRY MASTER AM CAR FERRY MASTER Narrative This result has an attachment that is no t available. Prasanna Bernal M.D. LAB SURG PATH ORDERABLES Performing Organization Address City/State/ZIP Code Phon e Number [facility]- [address] [place] [address] [facility] [place] [address] [facility]ology [address] [facility] Cytology Non-NATURAL RESOURCE TECHNICIAN (05/24/2019 9:09 AM CDT) Component Value Ref Test Analysis Performed At [facility] gist Range Method Time Signature Gross [...] Address City/State/ZIP Code Phon e Number [facility] [address] [place] [address] CYTOLOGY documented in this encounter Visit Diagnoses Diagnosis Personal History Of Malignant Neoplasm O f Bladder documented in this encounter Additional Health Concerns Assessment Noted Time PHQ-9 Depression Total Score: 18 04/28/2018 11:27 AM C DT documented as of this encounter Care Teams Electronics Processing Supervisor Relationship Specialty Start Date End Date Ewa Alejandro M.D. PCP - General 03/13/17 01/09/20 [address] [place] [phone] documented as of this encounter
--- OUTSIDE RECORDS SUMMARY | 2022-05-28 07:22 | XMS_ITS | Encounter Summary ---
:1945 Author Organization [facility] Address [address] [place] [address] Care Team Providers Name Role Phone Ewa Alejandro M.D. Primary Care Provider Encounter Details Date Type Department Care Team Description 10/06/2018 Clinical Communication Department of Family Kirill Torres [facility], Ewa Jack, [facility], in [place] [address] [place] [address] [phone] Social History Tobacco Use Types Packs/Day Years [...] Morelia Garcia L.P.NMauro - 10/06/2018 12:44 PM BURRITO MAKER Please advise on the request for a referral to Derm surgery in [place]. ITO MAKER Telephone Encounter - Tolu Amanda - 10/06/2018 11:02 AM CST Reason for Communication: Patient needs to be seen in [place]. Phyllis doesn't do Mohs surgeries. Current Phone Number: Can Nursing/Provider leave a detailed message: na Did the patient refuse triage through Nurse line? (for symptom based concerns)na Action Needed: 10/06/18 Please have Ewa gonzales new order for [facility]; Derm Surgery Consult: [facility]CC nose needs Mohs [facility] ref by Ewa Hinton 09/21/2018 (Approximate) Name of Medication (if relevant): ITO MAKER documented in this encounter Plan of Treatment Not on filedocumented as of this encounter Visit Diagnoses Not on filedocumented in this encounter Additional Health Concerns Assessment Noted Time PHQ-9 Depression Total Score: 18 04/28/2018 11:27 AM C DT documented as of this encounter Care Teams Vocational Guidance Counselor Relationship Specialty Start Date End Date Ewa Alejandro M.D. PCP - General 03/13/17 01/09/[address] [phone] documented as of this encounter
--- OUTSIDE RECORDS SUMMARY | 2022-05-28 07:22 | XMS_ITS | Encounter Summary ---
:1945 Author Organization [facility] Address [address] [place] [address] Care Team Providers Name Role Phone Ewa Alejandro M.D. Primary Care Provider [phone] Reason for Visit Reason Comments Med Refill Encounter Details Date Type Department Care Team Description 08/11/2018 Refill Division of Gastroenterology in [place], [facility] Refill [place], [place] [address] [facility] [address] [place] [address] [place], [place] [phone] (Wo rk) Social History Tobacco Use Types [...] do you attend worship or Never 2021 hinduism services? Do you [...] as of this encounter Care Teams Pot Fireman Relationship Specialty Start Date End Date Ewa Alejandro M.D. PCP - General 03/13/17 01/09/20 [address], [place] [phone] documented as of this encounter
--- OUTSIDE RECORDS SUMMARY | 2022-05-28 07:22 | XMS_ITS | Encounter Summary ---
:1945 Author Organization [facility] Address [address] [place] [address] Care Team Providers Name Role Phone Ewa [...] Expiration Date Visits Requ ested Visits Authorized [id number] Closed 11/03/2018 11/03/2019 1 1 Encounter Details Date Type Department Care Team Description 11/09/2018 Office Visit Department of Family [place] Hyp ertensive Heart Disease Without Heart Failure (Primary Dx); Medicine, Ewa Barclay, Diabetes Mellitus Type 2 (HCC) Clinic, in [place] [address] [place] [phone] Social History Tobacco Use Types Packs/Day Years [...] do you attend mormonism or Never 2021 denominational services? Do you [...] Comments Blood Pressure 138/76 11/09/2018 8:55 AM PROPERTY UNDERWRITER Pulse 78 11/09/2018 8:55 AM PROPERTY UNDERWRITER Temperature 37.1 ??C (98.8 ??F) 11/09/2018 8:55 AM PROPERTY UNDERWRITER Respiratory Rate 16 11/09/2018 8:55 AM PROPERTY UNDERWRITER Oxygen Saturation - - Inhaled Oxygen Concentration - - Weight 107 kg (235 lb 3.7 oz) 11/09/2018 8:55 AM PROPERTY UNDERWRITER Height 187.5 cm (6' 1.82) 11/09/2018 8:55 AM PROPERTY UNDERWRITER Body Mass Index 30.35 11/09/2018 8:55 AM PROPERTY UNDERWRITER documented in this encounter Progress Notes Ewa Alejandro M.D. - 11/09/2018 9:00 AM CST CHIEF COMPLAINT/ REASON FOR VISIT Concerns about blood pressure. HISTORY OF PRESENT ILLNESS Jonnathan Costa is a 73 y.o. male who presents to the clinic today for concerns about blood pressure. He has been struggling with his providers at the [place] and he has been trying to switch his careto [facility]. When he saw the chemistry teacher at [facility], he was scheduled with a PA and she told him that he needs to use his CPAP, even though he has been intolerant to this. She was worried about his blood pressure. He notes that when he comes into the clinic, his blood pressure on the machines are typicallyin the 140s. He has seen GI, endocrine, and a control room technician at [facility] and they have a new regimen to [...] mouth daily. ??? flash glucose scanning reader (Greenhouse StrategiesSTYLE ILEANA 14 DAY READER) [facility] Use as directed 1 each 0 [...] injection LW Addl Instr:Indicated for: Diabetes ??? aylepk-yzztlxbw-krspflg (CREON) 6,000-19,000-30,[address] capsule Take [...] (HCC) 10/16/2009 Pulmonary symptomatology, diagnosis at the [place] unclear, [...] 08/28/[address] Prasanna Bernal at the [facility]. ??? TONSILLECTOMY ??? VASECTOMY PREVENTIVE SERVICES [...] their behalf by Karen Givens, a trained electromedical service engineer. The creation of this record is based on the scribe's personal observations and the provider's statements to them. This document has been ch ecked and approved by the attending provider. ERTY UNDERWRITER documented in this encounter Plan of Treatment Not on filedocumented as of this encounter Procedures Procedure Name Priority Date/Time Associated Diagnosis Comme nts HEMOGLOBIN A1C, B Routine 11/09/2018 10:11 Diabetes Mellitus R esults for this AM PROPERTY UNDERWRITER Type 2 (HCC) procedure are i n the results section. BASIC METABOLIC Routine 11/09/2018 10:11 Hypertensive Heart Re sults for this PANEL, S/P AM PROPERTY UNDERWRITER Disease Without Heart proced ure are in Failure the results section. documented in this encounter Results (ABNORMAL) Renal Function Panel (11/09/2018 10:11 AM PROPERTY UNDERWRITER) P athologist Signature Potassium, S 4.3 3.6 - 5.2 11/09/2018 [facility] mmol/L 1:44 PM [facility] Sodium, S 143 135 - 145 11/09/2018 [facility] mmol/L 1:44 PM [facility] Chloride, S 106 98 - 107 11/09/2018 [facility] mmol/L 1:44 PM [facility] Bicarbonate, S 24 22 - 29 11/09/2018 [facility] mmol/L 1:44 PM [facility] Anion Gap 13 7 - 15 11/09/2018 [facility] 1:44 PM [facility] BUN (Blood Urea 28 (H) 8 - 24 11/09/2018 [facility] Nitrogen), S mg/dL 1:44 PM [facility] Creatinine 1.13 0.74 - 11/09/2018 [facility] 1.35 mg/dL 1:44 PM [facility] eGFR-Non 63 >=60 11/09/2018 [facility] Black/ mL/min/BSA 1:44 PM [facility] [place] Comment: ----ADDITIONAL INFORMATION---- Estimated GFR calculated using the 2009 CKD_EPI creatinine equation. eGFR-Black/ 73 >=60 mL/min/BSA 2018 1:44 PM [facility] Comment: ----ADDITIONAL INFORMATION---- Estimated GFR calculated using the 2009 CKD_EPI creatinine equation. Calcium, Total, S 9.7 8.8 - 10.2 11/09/2018 1:44 PM [facility] mg/dL [facility] Glucose, S 176 (H) 70 - 140 mg/dL 11/09/2018 1:44 PM [facility] Albumin, S 4.4 3.5 - 5.0 g/dL 11/09/2018 1:44 PM [facility] Phosphorus 3.9 2.5 - 4.5 mg/dL 11/09/2018 3:52 PM [facility] HEALTH (Inorganic), S [facility] Specimen Anatomical Collection Method Collection Time Receive d Time (Source) Location / / Volume Laterality Blood (Blood, 11/09/2018 10:11 11/09/2018 Venous) AM PROPERTY UNDERWRITER 12:58 PM PROPERTY UNDERWRITER Narrative [facility] - 11/09/2018 3:52 PM PROPERTY UNDERWRITER Specimen Information: Specimen ID: [id number] Specimen Type: Blood Specimen Collection Start Date: 11/09/19 10:11 AM Specimen Received Date: 11/09/2018 12:58 PM Specimen ID: [id number] Specimen Type: Blood Specimen Collection Start Date: 11/09/19 10:11 AM Specimen Received Date: 11/09/2018 ??3:3 7 PM Ewa Alejandro M.D. LAB BLOOD ADD-ON Performing Organization Address City/State/ZIP Code Phon e Number [facility]- [address] [place] [address] [facility] [address] [place] [address], [facility] (ABNORMAL) CBC with Differential (11/09/2018 10:11 AM PROPERTY UNDERWRITER) [facility] Method Time Signature Hemoglobin 12.8 (L) 13.2 - 11/09/2018 [facility] 16.6 g/dL 10:17 AM [employer] Hematocrit 37.4 (L) 38.3 - 11/09/2018 [facility] 48.6 % 10:17 AM PROPERTY UNDERWRITER [employer] [facility] Erythrocytes 4.28 (L) 4.35 - 11/09/2018 [facility] 5.65 10:17 AM PROPERTY UNDERWRITER HEALTH x10(12)/L [facility] MCV 87.4 78.2 - 11/09/2018 [facility] 97.9 fL 10:17 AM [employer] RBC Distrib Width 13.6 11.8 - 11/09/2018 [facility] 14.5 % 10:17 AM [employer] Platelet Count 204 135 - 317 11/09/2018 [facility] x10(9)/L 10:17 AM [employer] [facility] Leukocytes 6.2 3.4 - 9.6 11/09/2018 [facility] x10(9)/L 10:17 AM [employer] [facility] Neutrophils 3.56 1.56 - 11/09/2018 [facility] 6.45 10:17 AM PROPERTY UNDERWRITER HEALTH x10(9)/L [employer] [facility] Lymphocytes 1.47 0.95 - 11/09/2018 [facility] 3.07 10:17 AM [employer] x10(9)/L [facility] [place] [facility] Monocytes 0.38 0.26 - 11/09/2018 [facility] 0.81 10:17 AM PROPERTY UNDERWRITER HEALTH x10(9)/L [facility] [place] [facility] Eosinophils 0.71 (H) 0.03 - 11/09/2018 [facility] 0.48 10:17 AM PROPERTY UNDERWRITER HEALTH x10(9)/L [facility] [place] [facility] Basophils 0.08 0.01 - 11/09/2018 [facility] 0.08 10:17 AM PROPERTY UNDERWRITER HEALTH x10(9)/L [facility] [place] [facility] Specimen Anatomical Collection Method Collection Time Receive d Time (Source) Location / / Volume Laterality Blood (Blood, 11/09/2018 10:11 11/09/2018 Venous) AM PROPERTY UNDERWRITER 10:11 AM PROPERTY UNDERWRITER Ewa Alejandro M.D. LAB BLOOD ADD-ON Performing Organization Address City/State/ZIP Code Phon e Number [facility] [address] [place] [address] LAB (ABNORMAL) Hemoglobin A1c (11/09/2018 10:11 AM PROPERTY UNDERWRITER) P athologist Signature Hemoglobin A1c, 8.4 (H) 4.2 - 5.6 11/09/2018 [facility] B % 1:18 PM [facility] Comment: Hemoglobin A1c values greater than or eq ual to 6.5 percent are diagnostic for diabetes mellitus. ?? Diagnosis should be confirmed by repeat testing. ??In diabet ic patients, HbA1c goals should be discussed with healthcar e provider. Specimen Anatomical Collection Method Collection Time Receive d Time (Source) Location / / Volume Laterality Blood (Blood, 11/09/2018 10:11 11/09/2018 Venous) AM PROPERTY UNDERWRITER 12:58 PM PROPERTY UNDERWRITER Ewa Alejandro M.D. LAB BLOOD ADD-ON Performing Organization Address City/State/ZIP Code Phon e Number [facility] [address], [place] [address] LAB (ABNORMAL) Basic Metabolic Panel (11/09/2018 10:11 AM PROPERTY UNDERWRITER) P athologist Signature Potassium, S 4.2 3.6 - 5.2 11/09/2018 [facility] mmol/L 1:33 PM [facility] Sodium, S 142 135 - 145 11/09/2018 [facility] mmol/L 1:33 PM [facility] Chloride, S 105 98 - 107 11/09/2018 [facility] mmol/L 1:33 PM [facility] Bicarbonate, S 24 22 - 29 11/09/2018 [facility] mmol/L 1:33 PM [facility] Anion Gap 13 7 - 15 11/09/2018 [facility] 1:33 PM [facility] BUN (Blood Urea 28 (H) 8 - 24 11/09/2018 [facility] Nitrogen), S mg/dL 1:33 PM [facility] Creatinine 1.13 0.74 - 11/09/2018 [facility] 1.35 mg/dL 1:33 PM [facility] eGFR-Non 63 >=60 11/09/2018 [facility] Black/ mL/min/BSA 1:33 PM [facility] [place] [facility] Comment: ----ADDITIONAL INFORMATION---- Estimated GFR calculated using the 2009 CKD_EPI creatinine equation. eGFR-Black/ 73 >=60 mL/min/BSA 2018 1:33 PM [facility] Comment: ----ADDITIONAL INFORMATION---- Estimated GFR calculated using the 2009 CKD_EPI creatinine equation. Calcium, Total, S 9.7 8.8 - 10.2 mg/dL 11/09/2018 1:33 PM [facility] Glucose, S 177 (H) 70 - 140 mg/dL 11/09/2018 1:33 PM [facility] Specimen Anatomical Collection Method Collection Time Receive d Time (Source) Location / / Volume Laterality Blood (Blood, 11/09/2018 10:11 11/09/2018 Venous) AM PROPERTY UNDERWRITER 12:57 PM PROPERTY UNDERWRITER Ewa Alejandro M.D. LAB BLOOD ADD-ON Performing Organization Address City/State/ZIP Code Phon e Number [facility] [address] [place] [address] LAB documented in this encounter Visit Diagnoses Diagnosis Hypertensive Heart Disease Without Heart Failure - Primary Diabetes Mellitus Type 2 (HCC) Hypertensive Heart Disease Without Heart Failure documented in this encounter Additional Health Concerns Assessment Noted Time PHQ-9 Depression Total Score: 18 04/28/2018 11:27 AM C DT documented as of this encounter Care Teams Linux Support Engineer Relationship Specialty Start Date End Date Ewa Alejandro M.D. PCP - General 03/13/17 01/09/[address] [phone] documented as of this encounter
--- OUTSIDE RECORDS SUMMARY | 2022-05-28 07:22 | XMS_ITS | Encounter Summary ---
:1945 Author Organization [facility] Address [address] [place] [address] Care Team Providers Name Role Phone Ewa Alejandro M.D. Primary Care Provider [phone] Encounter Details Date Type Department Care Team Description 09/30/2018 Clinical Support Department of Nicholas Triana M .D. [address] [place] [phone] Pancreatitis Chronic Nutrition in Luciana Sterling R.N., [facility] [address] [place] [phone] ([facility]) [place], [place] [address] [place] [phone] Social History Tobacco Use Types Packs/Day Years [...] do you attend rastafari or Never 2021 baptism services? Do you [...] Plan 1. Pancreatitis Chronic (HCC) Nutrition - community educator visit (clinic) Patient arrives to diabetes [...] Time spent with patient (minutes): 90 Minutes ROUGHER documented in this encounter Miscellaneous Notes Addendum Note - Luciana Sterling R.N. - 09/30/2018 11:00 AM PONY ROUGHER Addended by: LUCIANA STERLING on: 09/30/2018 01:11 PM Modules accepted: Orders ROUGHER Addendum Note - Luciana Sterling R.N. - 09/30/2018 11:00 AM PONY ROUGHER Addended by: LUCIANA STERLING on: 09/30/2018 02:02 PM Modules accepted: Orders ROUGHER documented in this encounter Plan of Treatment Not on filedocumented as of this encounter Visit Diagnoses Diagnosis Pancreatitis Chronic (HCC) documented in this encounter Additional Health Concerns Assessment Noted Time PHQ-9 Depression Total Score: 18 04/28/2018 11:27 AM C DT documented as of this encounter Care Teams Farmer General Relationship Specialty Start Date End Date Ewa Alejandro M.D. PCP - General 03/13/17 01/09/20 [address], [place] [address] documented as of this encounter
--- OUTSIDE RECORDS SUMMARY | 2022-05-28 07:22 | XMS_ITS | Encounter Summary ---
:1945 Author Organization [facility] Address [address] [place] [address] Care Team Providers Name Role Phone Ewa Alejandro M.D. Primary Care Provider [phone] Reason for Visit Reason Comments Bladder Cancer 6 month surveillance Encounter Details Date Type Department Care Team Description 11/23/2018 Procedure visit Department of Urology Prasanna Bernal, Cancer Bladder in [place] Personal History [place] [address] [place] [phone] Social History Tobacco Use Types Packs/Day [...] do you attend sabianist or Never 2021 oriental orthodox services? Do [...] Comments Blood Pressure 150/70 11/23/2018 10:13 AM TIME CLERK Pulse 75 11/23/2018 10:13 AM TIME CLERK Temperature 37 ??C (98.6 ??F) 11/23/2018 10:13 AM TIME CLERK Respiratory Rate - - Oxygen Saturation - [...] Prasanna Bernal M.D. 11/23/18 10:42 AM ?? CLERK documented in this encounter Plan of Treatment Not on filedocumented as of this encounter Procedures Procedure Name Priority Date/Time Associated Diagnosis Comme nts CYTOLOGY NON-GEOSCIENTIST Routine 11/23/2018 11:01 AM Cancer Bladder Re sults for this TIME CLERK Personal History procedure a re in the results section. documented in this encounter Results (ABNORMAL) Cytology Non-GEOSCIENTIST (Scheduled) (05/17/2019 8:53 AM CDT) Component Value Ref Test Analysis Performed At [facility] Range Method Time Signature Gross Description [...] Code Phon e Number [facility] [address] [place] [address] CYTOLOGY Cytology Non-GEOSCIENTIST (11/23/2018 11:01 AM TIME CLERK) Component Value Ref Test Analysis Performed At [facility] Range Method Time Signature Gross Description Received 60 11/24/2018 [facility] IC ml of yellow 10:04 AM HEALTH alcohol fixed [facility] fluid [place] [facility] Collection void 11/24/2018 [facility] Procedure 10:04 AM [facility] CYTOLOGY Fixative 50% alcohol 11/24/2018 [facility] 10:04 AM [facility] CYTOLOGY Source A. Urine, 11/24/2018 [facility] voided 10:04 AM [facility] CYTOLOGY Clinical History bladder 11/24/2018 [facility] cancer 10:04 AM [facility] CYTOLOGY Report Brady Goodrich MD 11/24/2018 [facility] electronically I verify that I have examined all relevant slides/ma terials 10:04 AM HEALTH signed by for the specimen(s) and rendered or confirmed the diagnosi s. [facility] CYTOLOGY 11/24/2018 [facility] 10:04 AM [facility] CYTOLOGY Interpretation A. Urine, voided (cytospin): Negative for High-Grade 11/24/2018 [facility] Urothelial Carcinoma. 10:04 AM [facility] CYTOLOGY Specimen Anatomical Collection Method Collection Time Receive d Time (Source) Location / / Volume Laterality Varies 11/23/2018 11:01 11/24/2018 8:17 AM [facility] AM [facility] Narrative This result has an attachment that is no t available. Prasanna Bernal M.D. LAB SURG PATH ORDERABLES Performing Organization Address City/State/ZIP Code Phon e Number [facility] [address] [place] [address] CYTOLOGY documented in this encounter Visit Diagnoses Diagnosis Personal History Of Malignant Neoplasm O f Bladder documented in this encounter Additional Health Concerns Assessment Noted Time PHQ-9 Depression Total Score: 18 04/28/2018 11:27 AM C DT documented as of this encounter Care Teams Sole Leveler Relationship Specialty Start Date End Date Ewa Alejandro M.D. PCP - General 03/13/17 01/09/[address] [phone] documented as of this encounter
--- OUTSIDE RECORDS SUMMARY | 2022-05-28 07:22 | XMS_ITS | Encounter Summary ---
:[address] [facility] Address [address] [place] [address] Care Team Providers Name Role Phone Ewa Alejandro M.D. Primary Care Provider [phone] Encounter Details Date Type Department Care Team Description 08/21/2018 Documentation Division of Gastroenterology Ran Vilchis in [facility] [address] [place] [phone] Social History Tobacco Use Types Packs/Day Years [...] do you attend mormon or Never 2021 amish services? Do you [...] as of this encounter Care Teams Guest Services Attendant Relationship Specialty Start Date End Date Ewa Alejandro M.D. PCP - General 03/13/17 01/09/20 [address] [address] documented as of this encounter
--- OUTSIDE RECORDS SUMMARY | 2022-05-28 07:22 | XMS_ITS | Encounter Summary ---
:1945 Author Organization [facility] Address [address] [place] [address] Care Team Providers Name Role Phone Ewa Alejandro M.D. Primary Care Provider [phone] Reason for Visit Reason Onset Date Comments telephone call to patient 10/05/2018 Raven Sterling CNP/[place] Encounter Details Date Type Department Care Team Description 10/05/2018 Clinical Division of [place], telephone call to Communication Endocrinology in [place], patient (S tacey Amelia, [place] R.N., [facility] [place], [address] [place]) [place] [phone] Social History Tobacco Use Types Packs/Day Years [...] do you attend episcopalian or Never 2021 taoism services? Do you [...] 3 pm Contact patient by:telephone Phone number: [phone] Thank you, Keyonna for the nurses PLEASE REPLY TO THE SECRETARIAL POOL WHEN REPLYING TO THIS MESSAGE--p RST END MARIAMA BAINS. Thank you! ERY WORKER documented in this encounter Plan of Treatment Not on filedocumented as of this encounter Visit Diagnoses Not on filedocumented in this encounter Additional Health Concerns Assessment Noted Time PHQ-9 Depression Total Score: 18 04/28/2018 11:27 AM C DT documented as of this encounter Care Teams Active Directory Engineer Relationship Specialty Start Date End Date Ewa Alejandro M.D. PCP - General 03/13/17 01/09/20 [address] [place] [phone] documented as of this encounter
--- OUTSIDE RECORDS SUMMARY | 2022-05-28 07:22 | XMS_ITS | Encounter Summary ---
:1945 Author Organization [facility] Address [address] [place] [address] Care Team Providers Name Role Phone Ewa Alejandro M.D. Primary Care Provider Encounter Details Date Type Department Care Team Description 11/09/2018 Hospital Encounter Department of [place] Heart Laboratory Medicine Ewa brunson Diseas e Without Heart in [place] Failure [place] [address] [place] [phone] Social History Tobacco Use Types Packs/Day [...] you attend oriental orthodox or Never 2021 uatsdin services? Do you [...] KwikPen) 100 unit/mL for: Diabetes (70-30) injection [id number] Take 2 capsules by 120 capsule 0 [...] Res ults for this PANEL, S AM CAMPUS COORDINATOR Disease Without Heart proced ure are in Failure the results section. CBC WITH Routine 11/09/2018 10:11 Hypertensive Heart Resul ts for this DIFFERENTIAL, B AM CAMPUS COORDINATOR Disease Without Heart pro cedure are in Failure the results section. documented in this encounter Results (ABNORMAL) Renal Function Panel (11/09/2018 10:11 AM CAMPUS COORDINATOR) P athologist Signature Potassium, S 4.3 3.6 - 5.2 11/09/2018 [facility] mmol/L 1:44 PM [facility] Sodium, S 143 135 - 145 11/09/2018 [facility] mmol/L 1:44 PM [facility] Chloride, S 106 98 - 107 11/09/2018 [facility] mmol/L 1:44 PM [facility] Bicarbonate, S 24 22 - 29 11/09/2018 [facility] mmol/L 1:44 PM [facility] Anion Gap 13 7 - 15 11/09/2018 [facility] 1:44 PM [facility] BUN (Blood Urea 28 (H) 8 - 24 11/09/2018 [facility] Nitrogen), S mg/dL 1:44 PM [facility] Creatinine 1.13 0.74 - 11/09/2018 [facility] 1.35 mg/dL 1:44 PM [facility] [place] [facility] eGFR-Non 63 >=60 11/09/2018 [facility] Black/ mL/min/BSA 1:44 PM [facility] [place] Comment: ----ADDITIONAL INFORMATION---- Estimated GFR calculated using the 2009 CKD_EPI creatinine equation. eGFR-Black/ 73 >=60 mL/min/BSA 2018 1:44 PM [facility] [place] [facility] Comment: ----ADDITIONAL INFORMATION---- Estimated GFR calculated using the 2009 CKD_EPI creatinine equation. Calcium, Total, S 9.7 8.8 - 10.2 11/09/2018 1:44 PM [facility] mg/dL [facility] [place] [facility] Glucose, S 176 (H) 70 - 140 mg/dL 11/09/2018 1:44 PM [facility] [place] [facility] Albumin, S 4.4 3.5 - 5.0 g/dL 11/09/2018 1:44 PM [facility] Phosphorus 3.9 2.5 - 4.5 mg/dL 11/09/2018 3:52 PM [facility] (Inorganic), S [facility] Specimen Anatomical Collection Method Collection Time Receive d Time (Source) Location / / Volume Laterality Blood (Blood, 11/09/2018 10:11 11/09/2018 Venous) AM CAMPUS COORDINATOR 12:58 PM CAMPUS COORDINATOR Narrative [facility] - 11/09/2018 3:52 PM CAMPUS COORDINATOR Specimen Information: Specimen ID: [id number] Specimen Type: Blood Specimen Collection Start Date: 11/09/19 19 10:11 AM Specimen Received Date: 11/09/2018 12:58 PM Specimen ID: [id number] Specimen Type: Blood Specimen Collection Start Date: 11/09/19 10:11 AM Specimen Received Date: 11/09/2018 ??3:3 7 PM Ewa Alejandro M.D. LAB BLOOD ADD-ON Performing Organization Address City/State/ZIP Code Phon e Number [facility] [address] [place] [address] [facility] [address] [place] [address], U [facility] (ABNORMAL) CBC with Differential (11/09/2018 10:11 AM CAMPUS COORDINATOR) [facility] Method Time Signature Hemoglobin 12.8 (L) 13.2 - 11/09/2018 [facility] 16.6 g/dL 10:17 AM [facility] Hematocrit 37.4 (L) 38.3 - 11/09/2018 [facility] 48.6 % 10:17 AM [facility] Erythrocytes 4.28 (L) 4.35 - 11/09/2018 [facility] 5.65 10:17 AM CAMPUS COORDINATOR HEALTH x10(12)/L [facility] MCV 87.4 78.2 - 11/09/2018 [facility] 97.9 fL 10:17 AM CAMPUS COORDINATOR [facility] RBC Distrib Width 13.6 11.8 - 11/09/2018 [facility] 14.5 % 10:17 AM [facility] Platelet Count 204 135 - 317 11/09/2018 [facility] x10(9)/L 10:17 AM [facility] Leukocytes 6.2 3.4 - 9.6 11/09/2018 [facility] x10(9)/L 10:17 AM [facility] Neutrophils 3.56 1.56 - 11/09/2018 [facility] 6.45 10:17 AM CAMPUS COORDINATOR HEALTH x10(9)/L [facility] Lymphocytes 1.47 0.95 - 11/09/2018 [facility] 3.07 10:17 AM CAMPUS COORDINATOR HEALTH x10(9)/L [facility] Monocytes 0.38 0.26 - 11/09/2018 [facility] 0.81 10:17 AM CAMPUS COORDINATOR HEALTH x10(9)/L [facility] Eosinophils 0.71 (H) 0.03 - 11/09/2018 [facility] 0.48 10:17 AM CAMPUS COORDINATOR HEALTH x10(9)/L [facility] Basophils 0.08 0.01 - 11/09/2018 [facility] 0.08 10:17 AM CAMPUS COORDINATOR HEALTH x10(9)/L [facility] Specimen Anatomical Collection Method Collection Time Receive d Time (Source) Location / / Volume Laterality Blood (Blood, 11/09/2018 10:11 11/09/2018 Venous) AM CAMPUS COORDINATOR 10:11 AM CAMPUS COORDINATOR Ewa Alejandro M.D. LAB BLOOD ADD-ON Performing Organization Address City/State/ZIP Code Phon e Number [facility] [address] [address] LAB documented in this encounter Visit Diagnoses Diagnosis Hypertensive Heart Disease Without Heart Failure documented in this encounter Additional Health Concerns Assessment Noted Time PHQ-9 Depression Total Score: 18 04/28/2018 11:27 AM C DT documented as of this encounter Care Teams Doll Wig Maker Rooted Hair Relationship Specialty Start Date End Date Ewa Alejandro M.D. PCP - General 03/13/17 01/09/[address] [place] [phone] documented as of this encounter
--- OUTSIDE RECORDS SUMMARY | 2022-05-28 07:22 | XMS_ITS | Encounter Summary ---
:1945 Author Organization [facility] Address [address] [place] [address] Care Team Providers Name Role Phone Ewa Alejandro M.D. Primary Care Provider [phone] Encounter Details Date Type Department Care Team Description 09/21/2018 Documentation Division of Gastroenterology Ran Vilchis in [facility] cameron [address] [place] [phone] Social History Tobacco Use Types Packs/Day Years [...] documented as of this encounter Care Teams Banking Officer Relationship Specialty Start Date End Date Ewa Alejandro M.D. PCP - General 03/13/17 01/09/20 [address] [place] [address] documented as of this encounter
--- OUTSIDE RECORDS SUMMARY | 2022-05-28 07:22 | XMS_ITS | Encounter Summary ---
:1945 Author Organization [facility] Address [address] [place] [address] Care Team Providers Name Role Phone Ewa Alejandro M.D. Primary Care Provider [phone] Reason for Visit Reason Onset Date Comments AWV 10/09/2018 Encounter Details Date Type Department Care Team Description 10/09/2018 Clinical Communication [facility], in [place] [address] [place] [address] Social History Tobacco Use Types [...] do you attend gnosticist or Never 2021 jain services? Do you [...] He thinks his depression was related to longterm/although maybe related to the pancreatitis that he developed at the same time. TUTOR Telephone Encounter - Caroline Plunkett R.N. - 10/09/2018 2:53 PM CST Called patient to discuss scheduling a Medicare Annual Wellness Visit. Patient has a lot going on right now so wishes to delay scheduling one for 6 months. I will send to scheduling to call again and place an order. Best time to call him is 7:30am. TUTOR documented in this encounter Plan of Treatment Not on filedocumented as of this encounter Visit Diagnoses Diagnosis Annual Medicare Examination Return - Jennifer masoud documented in this encounter Additional Health Concerns Assessment Noted Time PHQ-9 Depression Total Score: 18 04/28/2018 11:27 AM C DT documented as of this encounter Care Teams Jalousies Installer Relationship Specialty Start Date End Date Ewa Alejandro M.D. PCP - General 03/13/17 01/09/[address] [place] [phone] documented as of this encounter
--- OUTSIDE RECORDS SUMMARY | 2022-05-28 07:22 | XMS_ITS | Encounter Summary ---
:1945 Author Organization [facility] Address [address] [place] [address] Care Team Providers Name Role Phone Ewa Alejandro M.D. Primary Care Provider [phone] Encounter Details Date Type Department Care Team Description 08/27/2018 Orders Only Division of Anjelica Bell, Diabetes Maria Ines litus Type Endocrinology in ALLERGIST IMMUNOLOGIST, C.N.P., 2 Hypergly cemia ([facility]) [facility] (Primary Dx) [address] [facility] [address] [place] [address] [place], [place] [phone] Social History Tobacco Use Types Packs/Day Years [...] documented as of this encounter Care Teams Fan Installer Relationship Specialty Start Date End Date Ewa Alejandro M.D. PCP - General 03/13/17 01/09/20 [address] [place] [phone] documented as of this encounter
--- OUTSIDE RECORDS SUMMARY | 2022-05-28 07:22 | XMS_ITS | Encounter Summary ---
:1945 Author Organization [facility] Address [address] [place] [address] Care Team Providers Name Role Phone Ewa Alejandro M.D. 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 [address] [place] [address] Referral ID Status Reason Start Date Expiration Date Visits V isits Requested Authorized [id number] Closed Specialty 11/16/2018 11/16/2019 1 1 Services Required ICE RN Encounter Details Date Type Department Care Team Description 11/16/2018 Orders Only [facility] And Medicine, Ewa Barclay, Chronic Kidney Disease Clinic, in [place] Without Heart Failure [place] [address] And With Stage 2 (Mild) [address] [place], [place] Chronic Kidney Disease [place] [place] [phone] (Primary Dx) [phone] Social History Tobacco Use [...] do you attend adventism or Never 2021 temple services? Do you [...] of this encounter Care Teams Recording Studio Intern Relationship Specialty Start Date End Date Ewa Alejandro M.D. PCP - General 03/13/17 01/09/[address] [phone] documented as of this encounter
--- OUTSIDE RECORDS SUMMARY | 2022-05-28 07:22 | XMS_ITS | Encounter Summary ---
:1945 Author Organization [facility] Address [address] [place] [address] Care Team Providers Name Role Phone Ewa Alejandro M.D. Primary Care Provider + [phone] Reason for Referral MRI/CAT/PET Scan (Routine) - Closed Specialty Diagnoses / Procedures Referred By Contact Refer red To Contact Radiology Diagnoses Diarrhea Dilation Pancreatic Duct Stone Pancreatic Duct Pancreatitis Chronic (HCC) Emil Zurita M.D. [facility] Procedures CT Abdomen Pelvis with IV Contrast CT Abdomen Pelvis without and with IV Contrast KS CT ABD&PELVIS WO/W CNTRST HC CT ABD&PELVIS WO/W CNTRST KS CT ABD&PELVIS WO/W CNTRST KS CT ABD&PELVIS W CNTRST HC CT ABD&PELVIS W CNTRST [address] ABD&[place] [address] Referral ID Status Reason Start Date Expiration Date Visits Requ ested Visits Authorized [id number] Closed 07/10/2018 07/10/2019 1 1 D INTERVIEWER Reason for Visit MRI/CAT/PET Scan (Routine) - Closed Specialty Diagnoses / Procedures Referred By Contact Refer red To Contact Radiology Diagnoses Diarrhea Dilation Pancreatic Duct Stone Pancreatic Duct Pancreatitis Chronic (HCC) Emil Zurita M.D. [place] [facility] Procedures CT Abdomen Pelvis with IV Contrast CT Abdomen Pelvis without and with IV Contrast KS CT ABD&PELVIS WO/W CNTRST HC CT ABD&PELVIS WO/W CNTRST KS CT ABD&PELVIS WO/W CNTRST KS CT ABD&PELVIS W CNTRST HC CT ABD&PELVIS W CNTRST [address] [facility] [place] CT ABD&[place] [address] Referral ID Status Reason Start Date Expiration Date Visits Requ ested Visits Authorized [id number] Closed 07/10/2018 07/10/2019 1 1 Encounter Details Date Type Department Care Team Description 08/19/2018 Hospital Encounter Department of ParminderJamaal ; Radiology, Leanne Stein M.D. Dilation Pancreatic Duct (HCC); Building, in [address] [place] [address] Stone Pancreatic Duct (HCC); [place], [place] Pancreatitis Chronic (HCC) [address] [place] [phone] [place], [place] [phone] (Work) [phone] Social History Tobacco Use Types Packs/Day Years [...] do you attend yarsani or Never 2021 mu-ism services? Do you [...] 102 kg (225 lb) 08/19/2018 12:10 PM FIELD INTERVIEWER Height 188 cm (6' 2) 08/19/2018 12:10 PM FIELD INTERVIEWER Body Mass Index 28.89 08/19/2018 12:10 PM FIELD INTERVIEWER documented in this encounter Medications at Time [...] KwikPen) 100 unit/mL for: Diabetes (70-30) injection rpaudh-hchtcqcm-zqlyfgh Take 2 capsules by 120 capsule 0 [...] 12:07 PM CST Creatinine 1.0, GFR >30 D INTERVIEWER documented in this encounter Plan of Treatment Not on filedocumented as of this encounter Procedures Procedure Name Priority Date/Time Associated Comments Diagnosis CT ABDOMEN PELVIS RAD - Routine 08/19/2018 12:43 Diarrhea Results for this WITH IV CONTRAST (most inpatients PM FIELD INTERVIEWER Dilation procedu re are in and all Pancreatic Duct the results outpatients) (HCC) section. Stone Pancreatic Duct (HCC) Pancreatitis Chronic (HCC) CREATININE, POCT, Routine 08/19/2018 12:06 Result s for this B PM FIELD INTERVIEWER procedure are i n the results section. CREATININE, POCT, Routine 08/19/2018 12:06 Result s for this B PM FIELD INTERVIEWER procedure are i n the results section. documented in this encounter Results CT Abdomen Pelvis with IV Contrast (08/19/2018 12:43 PM FIELD INTERVIEWER) Anatomical Region Laterality Modality Abdomen, Pelvis, Abdominal RST LOS, Abdominal ARZ LOS, N/A Computed Tomography Abdominal FLA LOS Specimen (Source) Anatomical Collection Method Collection Time Re ceived Time Location / / Volume Laterality 08/19/2018 1:29 PM FIELD INTERVIEWER Impressions 08/19/2018 1:48 PM FIELD INTERVIEWER IMPRESSION: ?? 1. Chronic calcific pancreatitis. Narrative 08/19/2018 1:48 PM FIELD INTERVIEWER EXAM: ??CT ABDOMEN PELVIS WITH IV CONTRAST [...] in course and calibe r. There is gvjh-li-ycknfemn arthrosclerotic calcification of the aor ta and [...] in course and calibe r. There is zenx-lv-ctzygncq arthrosclerotic calcification of the aor ta and branch vessels. There is soft tissue stranding within th e ventral abdominal subcutaneous tissue, unchanged. No suspicious osteolytic or osteoblastic lesions. 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 Chronic calcific pancreatitis. Emil Zurita M.D. IMG CT PROCEDURES Creatinine, POCT (08/19/2018 12:06 PM FIELD INTERVIEWER) P athologist Signature Creatinine, 1.0 0.7 - 1.4 08/19/2018 POC [facility] POCT, B mg/dL 12:16 PM FIELD INTERVIEWER PERFORMING LABS Comment: ----ADDITIONAL INFORMATION---- Performed at the Point of Care Specimen Anatomical Collection Method Collection Time Receive d Time (Source) Location / / Volume Laterality Blood 08/19/2018 12:06 08/19/2018 PM FIELD INTERVIEWER 12:16 PM FIELD INTERVIEWER Unknown Provider LAB POCT ORDERABLES - DEVICE Performing Organization Address [facility] Phon e Number [facility] PERFORMING LABS 200 [place] [address] Creatinine, POCT (08/19/2018 12:06 PM FIELD INTERVIEWER) P athologist Signature eGFR-Black/Afr 85 >=60 08/19/2018 POC RST ican Greenlandic, mL/min/BSA 12:17 PM FIELD INTERVIEWER GNOSTICIST POCT OUTPATIENT LABS Comment: ----ADDITIONAL INFORMATION---- Estimated GFR calculated using the 2009 CKD_EPI creatinine equation. eGFR Non-Black/ 73 >=60 mL/min/BSA 08/19/2018 12:17 POC RST GNOSTICIST Greenlandic, POCT PM FIELD INTERVIEWER OUTPATIENT LABS Comment: ----ADDITIONAL INFORMATION---- Estimated GFR calculated using the 2009 CKD_EPI creatinine equation. Specimen Anatomical Collection Method Collection Time Receive d Time (Source) Location / / Volume Laterality Blood 08/19/2018 12:06 08/19/2018 PM FIELD INTERVIEWER 12:16 PM FIELD INTERVIEWER Unknown Provider LAB POCT ORDERABLES - DEVICE Performing Organization Address [facility] Phon e Number POC RST GNOSTICIST OUTPATIENT [address] [place], [place] [address] LABS documented in this encounter Visit Diagnoses Diagnosis Diarrhea Dilation Pancreatic Duct Stone Pancreatic Duct Pancreatitis Chronic (HCC) documented in this encounter Administered Medications Inactive Administered Medications - up to 3 most recent administrations Medication Order MAR Action Action Date Dose Rate Site iohexol 300 mg iodine/mL solution Given 08/19/2018 12:37 PM FIELD INTERVIEWER 140 mL 1-200 mL (OMNIPAQUE) 1-200 mL, intravenous, Once in imaging, contrast, Starting on Fri08/19/18 at 1202, For 1 dose, Imaging Protocol Orders, Dose per Radiant Medication Guidelines sodium chloride injection 2.5 mL Given 08/19/2018 12:43 PM FIELD INTERVIEWER 2.5 mL 2.5 mL, intravenous, As needed, line care, Starting on Fri08/19/18 at 1208 documented in this encounter Additional Health Concerns Assessment Noted Time PHQ-9 Depression Total Score: 18 04/28/2018 11:27 AM C DT documented as of this encounter Care Teams Plug Machine Operator Relationship Specialty Start Date End Date Ewa Alejandro M.D. PCP - General 03/13/17 01/09/20 [address], [place] [address] documented as of this encounter
--- OUTSIDE RECORDS SUMMARY | 2022-05-28 07:22 | XMS_ITS | Encounter Summary ---
:1945 Author Organization [facility] Address [address] [place] [address] Care Team Providers Name Role Phone Ewa Alejandro M.D. Primary Care Provider [phone] Encounter Details Date Type Department Care Team Description 08/19/2018 Hospital Encounter Department of Parminder, Diarrhea ; Laboratory Medicine Rhoda Stein Dilation Pancreatic Duct (HCC); and Pathology, [address] [place] [address] Stone Pancreatic Duct (HCC); [facility], in [place], [place] Pancrea titis Chronic (HCC) [place], [place] [address] [place] [address] [place], [place] (Work) [phone] Social History Tobacco Use Types Packs/Day Years [...] do you attend mosque or Never 2021 alevism services? Do you [...] PM Diarrhea Results for this EGFR, S/P PLUCK SEPARATOR Dilation Pancreatic procedur e are in Duct (HCC) the results Stone Pancreatic section. Duct (HCC) Pancreatitis Chronic (HCC) documented in this encounter Results Creatinine with Estimated GFR (08/19/2018 1:16 PM PLUCK SEPARATOR) Analysis Performed At Patho logist Time Signature Creatinine 1.04 0.74 - 08/19/2018 [facility] 1.35 mg/dL 2:27 PM PLUCK SEPARATOR LAB[facility]ATORIES - [facility] eGFR-Non 70 >=60 08/19/2018 [facility] Black/ mL/min/BSA 2:27 PM PLUCK SEPARATOR LABORATORIES - [facility] Comment: ----ADDITIONAL INFORMATION---- Estimated GFR calculated using the 2009 CKD_EPI creatinine equation. eGFR-Black/ 81 >=60 mL/min/BSA 08/19/2018 2:27 [facility] Grenadian PM PLUCK SEPARATOR [facility] Comment: ----ADDITIONAL INFORMATION---- Estimated GFR calculated using the 2009 CKD_EPI creatinine equation. Specimen Anatomical Collection Method Collection Time Receive d Time (Source) Location / / Volume Laterality Blood (Blood, 08/19/2018 1:16 PM 08/19/20 18 1:43 Venous) PLUCK SEPARATOR PM PLUCK SEPARATOR Emil Zurita M.D. LAB BLOOD ADD-ON Performing Organization Address City/State/ZIP Code Phon e Number [facility] - [address] documented in this encounter Visit Diagnoses Diagnosis Diarrhea Dilation Pancreatic Duct Stone Pancreatic Duct Pancreatitis Chronic (HCC) documented in this encounter Additional Health Concerns Assessment Noted Time PHQ-9 Depression Total Score: 18 04/28/2018 11:27 AM C DT documented as of this encounter Care Teams Water Resources Program Director Relationship Specialty Start Date End Date Ewa Alejandro M.D. PCP - General 03/13/17 01/09/[address] [phone] documented as of this encounter
--- OUTSIDE RECORDS SUMMARY | 2022-05-28 07:22 | XMS_ITS | Encounter Summary ---
:1945 Author Organization [facility] Address [address] [place] [address] Care Team Providers Name Role Phone Ewa Alejandro M.D. Primary Care Provider [phone] Reason for Referral Outpatient (Routine) - Closed Specialty Diagnoses / Procedures Referred By Contact Refer red To Contact Endocrinology Diagnoses Pancreatitis Chronic (HCC) Emil Zurita M.D. [facility] 200 [place] [address] Referral ID Status Reason Start Date Expiration Date Visits Requ ested Visits Authorized [id number] Closed 08/19/2018 08/19/2019 1 1 ICAL TRAINING SPECIALIST Reason for Visit Outpatient (Routine) - Closed Specialty Diagnoses / Referred By Referred To Cont act Procedures Contact Gastroenterology and Diagnoses Diarrhea Dilation Pancreatic Duct Stone Pancreatic Duct [facility]) [facility] [place] [address] [place] [address] Referral ID Status Reason Start Date Expiration Date Visits Requ ested Visits Authorized [id number] Closed 07/10/2018 07/10/2019 1 1 Encounter Details Date Type Department Care Team Description 08/19/2018 Office Visit Division of Parminder, Pancreatitis Ch ronic (HCC) (Primary Dx); Gastroenterology in Rhoda Stein Diarrhea; [place], [place] [address] [facility] Dilation Pancreatic Duct (HCC); [address] [place], [place] Stone Pancreatic Duct ([place]) [place] [address] [phone] Social History Tobacco Use Types Packs/Day Years [...] do you attend yazidism or Never 2021 anabaptism services? Do you [...] and was in agreement. Multiple questions answered. ICAL TRAINING SPECIALIST documented in this encounter Plan of Treatment Scheduled Referrals Name Type Priority Associated Diagnoses Order S [facility] Endocrinology - Outpatient Routine Pancreatitis [...] documented as of this encounter Care Teams Designer Relationship Specialty Start Date End Date Ewa Alejandro M.D. PCP - General 03/13/17 01/09/[address] [address] documented as of this encounter
--- OUTSIDE RECORDS SUMMARY | 2022-05-28 07:22 | XMS_ITS | Encounter Summary ---
:1945 Author Organization [facility] Address [address] [place] [address] Care Team Providers Name Role Phone Ewa Alejandro M.D. Primary Care Provider [phone] Reason for Visit Reason Onset Date Comments scheduling [facility] 10/07/2018 Encounter Details Date Type Department Care Team Description 10/07/2018 Clinical Communication Department of Anjana Glasgow scheduling [facility] Noam Santos [facility], in [place] [address] [place] [address] Social History Tobacco Use Types [...] you attend roman catholic or Never 2021 anabaptism services? Do you [...] is coming in tomorrow am to discuss. TRONICS INSTRUCTOR documented in this encounter Plan of Treatment Not on filedocumented as of this encounter Visit Diagnoses Not on filedocumented in this encounter Additional Health Concerns Assessment Noted Time PHQ-9 Depression Total Score: 18 04/28/2018 11:27 AM C DT documented as of this encounter Care Teams Certified Surgical Assistant Relationship Specialty Start Date End Date Ewa Alejandro M.D. PCP - General 03/13/17 01/09/[address] [phone] documented as of this encounter
--- OUTSIDE RECORDS SUMMARY | 2022-05-28 07:22 | XMS_ITS | Encounter Summary ---
:1945 Author Organization [facility] Address [address] [place] [address] Care Team Providers Name Role Phone Ewa Alejandro M.D. Primary Care Provider [phone] Encounter Details Date Type Department Care Team Description 09/21/2018 Documentation Division of Gastroenterology Ran Vilchis in [facility] cameron [address] [place] [phone] Social History Tobacco Use Types Packs/Day Years [...] you attend roman catholic or Never 2021 amish services? Do you [...] documented as of this encounter Care Teams Shipping Processor Relationship Specialty Start Date End Date Ewa Alejandro M.D. PCP - General 03/13/17 01/09/20 [address], [place] [address] documented as of this encounter
--- OUTSIDE RECORDS SUMMARY | 2022-05-28 07:22 | XMS_ITS | Encounter Summary ---
:1945 Author Organization [facility] Address [address] [place] [address] Care Team Providers Name Role Phone Ewa Alejandro M.D. Primary Care Provider [phone] Reason for Referral Specialty Diagnoses / Procedures Referred By Contact Refer red To Contact Consuelo Tom M.D. [address] [address] Referral ID Status Reason Start Date Expiration Date Visits Requ ested Visits Authorized WARE PROJECT ENGINEER Reason for Visit Outpatient (Routine) - Closed Specialty Diagnoses / Procedures Referred By Contact Refer red To Contact Endocrinology Diagnoses Pancreatitis Chronic (HCC) Emil Zurita M.D. [address] [phone] Referral ID Status Reason Start Date Expiration Date Visits Requ ested Visits Authorized [id number] Closed 08/19/2018 08/19/2019 1 1 Encounter Details Date Type Department Care Team Description 09/18/2018 Comprehensive Visit Division of Anjelica Bell APRN, C.N.P., M.S. [address] [place] [phone] Pancreatitis Chronic Endocrinology in Consuelo Tom M.D. [address] [place] [phone] ([facility]) [place], [place] [address] [place] [address] Social History Tobacco Use Types Packs/Day Years [...] you attend jehovah's witness or Never 2021 sikhism services? Do you [...] min or its worst immediately before eating. WARE PROJECT ENGINEER documented in this encounter Consult Notes Consuelo Tom M.D. - 09/18/2018 2:30 PM CST ENDOCRINOLOGY, METABOLISM, DIABETES AND NUTRITION Diabetes Consult Note REFERRAL Emil Zurita M.D. DEMOGRAPHIC INFORMATION Patient Name: Jonnathan Costa Age/ Sex: 73 y.o. male Date of : 1945 Address: [address] [place] [phone] Service Date/ Time: 09/18/2018 14:12 Global Account Executive: Consuelo Tom M.D. SUBJECTIVE CHIEF COMPLAINT/ PURPOSE [...] skin at bedtime., Disp: , Rfl: ??? dexmgt-emkcsevz-blfednb (CREON) 6,000-19,000-30,[address] capsule, Take [...] , Rfl: ??? PEN NEEDLE, DIABETIC MISC, Ynai Fine 30 disposable needles. 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 has a past surgical history that [...] Stroke (HCC) #14 Cancer Bladder Family History WARE PROJECT ENGINEER documented in this encounter Miscellaneous Notes Addendum Note - Consuelo Tom M.D. - 09/18/2018 2:30 PM SOFTWARE PROJECT ENGINEER Addended by: CONSUELO TOM on: 09/18/2018 03:19 PM Modules accepted: Orders WARE PROJECT ENGINEER documented in this encounter Plan of Treatment Scheduled Referrals Name Type Priority Associated Diagnoses Order S chedule Nutrition - Outpatient Referral Routine Pancreatitis Chronic Expected: hospital educator (HCC) 09/18/2018 visit (clinic) (Approximate) , Expires: 09/18/2019 documented as of this encounter Visit Diagnoses Diagnosis Pancreatitis Chronic (HCC) documented in this encounter Additional Health Concerns Assessment Noted Time PHQ-9 Depression Total Score: 18 04/28/2018 11:27 AM C DT documented as of this encounter Care Teams Information Clerk Cashier Relationship Specialty Start Date End Date Ewa Alejandro M.D. PCP - General 03/13/17 01/09/20 [address] [place] [address] documented as of this encounter
--- OUTSIDE RECORDS SUMMARY | 2022-05-28 07:22 | XMS_ITS | Encounter Summary ---
:1945 Author Organization [facility] Address [address] [place] [address] Care Team Providers Name Role Phone Ewa Alejandro M.D. Primary Care Provider [phone] Encounter Details Date Type Department Care Team Description 09/16/2018 Clinical Communication Department of Family Kirill Torres [facility], Ewa Barclay, Clinic, in [place] [address] [place] [phone] Social History Tobacco Use Types Packs/Day Years [...] do you attend sabianist or Never 2021 mormon services? Do you [...] Jacquie Hamilton L.P.NMauro - 09/21/2018 2:02 PM ASSISTANT COMMUNITY DIRECTOR Patient notified consult placed to [facility] STANT COMMUNITY DIRECTOR Telephone Encounter - Ewa Alejandro M.D. - 09/21/2018 1:53 PM ASSISTANT COMMUNITY DIRECTOR Consult completed STANT COMMUNITY DIRECTOR Telephone Encounter - Jacquie Hamilton L.PMauroNMauro - 09/21/2018 10:41 AM ASSISTANT COMMUNITY DIRECTOR Per patient biopsy was completed on left side of nose just under left eye. Per patient it is basal cell carcinoma. Request for Patients biopsy slides To be forwarded to [facility] dermatology onocology department was made by patient when he was at the al and the gave him the results of the biopsy completed there since patient wants further surgical proceedures and treatments completed in [facility] instead of the al hospital/clinic. Per patient if mission does not receive slides he stated he will personally drive to the al and get them. Per patient please submitt referal for [facility] services so appointment can be made after first of the year STANT COMMUNITY DIRECTOR Telephone Encounter - Estelle Chau R.N. - 09/17/2018 9:09 AM CST Attempted to call patient, voicemail is full unable to leave message. STANT COMMUNITY DIRECTOR Telephone Encounter - Ewa Alejandro M.D. - 09/16/2018 4:34 PM ASSISTANT COMMUNITY DIRECTOR Yes but I need more information. Where was the biopsy? What is the type of cancer? How will we get the pathology slides to [facility]? I need to know this before I make the referral request. STANT COMMUNITY DIRECTOR Telephone Encounter - Estelle Chau R.N. [...] He is asking to be referred to [facility] for this so he is asking if he could be referred to [facility] for this. Please advise. STANT COMMUNITY DIRECTOR Telephone Encounter - Mamta Olivares - 09/16/2018 1:33 PM CST Reason for Communication: Patient is calling, wants to talk to nurse before he scheduleds with doctor. Current Can Nursing/Provider leave a detailed message: yes Did the patient refuse triage through Nurse line? (for symptom based concerns)na Action Needed: please call patient back Name of Medication (if relevant): na STANT COMMUNITY DIRECTOR documented in this encounter Plan of Treatment Not on filedocumented as of this encounter Visit Diagnoses Diagnosis Basal Cell Carcinoma Breast - Primary documented in this encounter Additional Health Concerns Assessment Noted Time PHQ-9 Depression Total Score: 18 04/28/2018 11:27 AM C DT documented as of this encounter Care Teams Aoc Director Combat Plans Officer Relationship Specialty Start Date End Date Ewa Alejandro M.D. PCP - General 03/13/17 01/09/20 [address] [place] [phone] documented as of this encounter
--- OUTSIDE RECORDS SUMMARY | 2022-05-28 07:22 | XMS_ITS | Encounter Summary ---
:1945 Author Organization [facility] Address [address] [place] [address] Care Team Providers Name Role Phone Ewa Alejandro M.D. Primary Care Provider [phone] Reason for Referral Outpatient (Routine) - Closed Specialty Diagnoses / Procedures Referred By Contact Refer red To Contact Diagnoses Diarrhea Persistent Unexplained Emil Zurita M.D. [facility] Procedures Colonoscopy [address] [place] [address] Referral ID Status Reason Start Date Expiration Date Visits Requ ested Visits Authorized [id number] Closed 07/27/2018 07/27/2019 1 1 STAMPER Outpatient (Routine) - Closed Specialty Diagnoses / Procedures Referred By Contact Refer red To Contact Diagnoses Diarrhea Persistent Unexplained Emli Zurita M.D. [facility] Procedures EUS [address] [place] [address] Referral ID Status Reason Start Date Expiration Date Visits Requ ested Visits Authorized [id number] Closed 07/27/2018 07/27/2019 1 1 STAMPER Outpatient (Routine) - Closed Specialty Diagnoses / Procedures Referred By Contact Refer red To Contact Diagnoses Diarrhea Persistent Unexplained Emil Zurita M.D. [facility] Procedures EGD [address] [place] [address] Referral ID Status Reason Start Date Expiration Date Visits Requ ested Visits Authorized [id number] Closed 07/27/2018 07/27/2019 1 1 STAMPER Reason for Visit Outpatient (Routine) - Closed Specialty Diagnoses / Procedures Referred By Contact Refer red To Contact Diagnoses Diarrhea Persistent Unexplained Emil Zurita M.D. [facility] Procedures EGD [address] [place] [address] Referral ID Status Reason Start Date Expiration Date Visits Requ ested Visits Authorized [id number] Closed 07/27/2018 07/27/2019 1 1 Encounter Details Date Type Department Care Team Description 08/19/2018 Hospital Division of Jeovany Zurita M.D. [address] [place] [phone] Diarrhea Encounter Gastroenterology in Chad Jenkins W, HEAD OF TALENT MANAGEMENT, STATISTICAL DEVELOPER, DNAP [address] [place] [address] Persistent [place], [place] Unexplained [address] [place] [address] Social History Tobacco Use Types Packs/Day [...] do you attend scientologist or Never 2021 gnosticism services? Do you [...] Comments Blood Pressure 138/71 08/19/2018 9:45 AM DIE STAMPER Pulse 77 08/19/2018 9:45 AM DIE STAMPER Temperature 36.6 ??C (97.9 ??F) 08/19/2018 9:28 AM DIE STAMPER Respiratory Rate 26 08/19/2018 9:45 AM DIE STAMPER Oxygen Saturation 96% 08/19/2018 9:45 AM DIE STAMPER Inhaled Oxygen Concentration - - Weight 103 kg (227 lb 11.2 oz) 08/19/2018 7:30 AM DIE STAMPER Height 188 cm (6' 2.02) 08/19/2018 7:30 AM DIE STAMPER Body Mass Index 29.22 08/19/2018 7:30 AM DIE STAMPER documented in this encounter Discharge Instructions AttachmentsThe following attachments cannot be sent through Care Everywhere. About Your Colonoscopy (Congolese)About Your Upper Endoscopy (Congolese)documented in this encounter Medications at Time of [...] 08/19/2018 8:25 AM Res ults for this DIE STAMPER procedure are i n the results section. BACTERIAL CULTURE, Routine 08/19/2018 8:22 AM Res ults for this AEROBIC + SUSC DIE STAMPER procedure are in the results section. BACTERIAL CULTURE, Routine 08/19/2018 8:22 AM Res ults for this ANAEROBIC + SUSC DIE STAMPER procedure a re in the results section. COLONOSCOPY Routine 08/19/2018 7:46 AM Diarrhea Persistent Re sults for this DIE STAMPER Unexplained procedure are i n the results section. COLONOSCOPY Routine 08/19/2018 7:46 AM Diarrhea Persistent DIE STAMPER Unexplained UPPER EUS Routine 08/19/2018 7:46 AM Diarrhea Persistent Re sults for this DIE STAMPER Unexplained procedure are i n the results section. ENDOSCOPIC Routine 08/19/2018 7:46 AM Diarrhea Persistent ULTRASOUND (EUS) DIE STAMPER Unexplained documented in this encounter Results Surgical Pathology (08/19/2018 8:25 AM DIE STAMPER) Component Value Ref Test Analysis Performed At [facility] Range Method Time Signature Gross Description A: ?? Received in formalin labeled with the patie nt's name, 08/21/2018 [facility] medical record number, and duodenum-second part duodenum 12:38 PM LABORATORIES - are seven pale samson-pink irregular soft tissue fragments, DIE STAMPER [facility] ranging from 0.1-0.4 cm in [...] cassette E1. Grossed by Eric Parish M.D. [phone] [facility] electronically I verify that I have examined all relevant slides/ma terials 12:38 PM LABORATORIES - signed by for the specimen(s) and rendered or confirmed the diagnosi s. [facility] 08/21/2018 [facility] 12:38 PM LABORATORIES - [facility] Interpretation FINAL DIAGNOSIS 08/21/2018 [facility] A. Duodenum, 2nd part duodenum, endoscopic biopsy: 12:38 PM LABORATORIES - Duodenal mucosa with healing erosion and foveolar [facility]. ??No evidence of celiac disease, [...] Volume Laterality Biopsy (Duodenum) 08/19/2018 8:25 AM DIE STAMPER Biopsy (Ileum) 08/19/2018 8:57 AM DIE STAMPER Polyp (Colon) 08/19/2018 9:01 AM DIE STAMPER Biopsy (Colon) 08/19/2018 9:04 AM DIE STAMPER Biopsy (Colon) 08/19/2018 9:05 AM DIE STAMPER Narrative This result has an attachment that is no t available. Dhiraj Albarran M.D. LAB SURG PATH ORDERABLES Performing Organization Address [facility]/ZIP Code Phon e Number [facility] LABORATORIES - [address] [address] [facility] Bacterial Culture, Aerobic + Susc (08/19/2018 8:22 AM DIE STAMPER) [facility] Method Time Signature Bacterial No growth of 08/21/2018 [facility] Culture, aerobic gram 10:52 AM DIE STAMPER LABORATORIES - Aerobic + negative [facility] bacillus or CAMPUS yeast Specimen (Source) Anatomical Collection Method Collection Time Re ceived Time Location / / Volume Laterality Aspirate 08/19/2018 8:22 AM (Duodenum) DIE STAMPER Dhiraj Albarran M.D. LAB MICROBIOLOGY - GENERAL O RDERABLES Performing Organization Address City/[facility]/ZIP Code Phon e Number [facility] LABORATORIES - [address] [address] [facility] Bacterial Culture, Anaerobic + Susc (08/19/2018 8:22 AM DIE STAMPER) [facility] Method Time Signature Bacterial Total intestinal surekha (anaerobic and/or aerobic) 08/21/2018 [facility] Culture, >100,000 cfu/mL 7:45 AM DIE STAMPER LABORATORIES - Anaerobic + [facility] Specimen (Source) Anatomical Collection Method Collection Time Re ceived Time Location / / Volume Laterality Aspirate 08/19/2018 8:22 AM (Duodenum) DIE STAMPER Dhiraj Albarran M.D. LAB MICROBIOLOGY - GENERAL O RDERABLES Performing Organization Address City/[facility]/ZIP [facility] Phon e Number [facility] LABORATORIES - [address] [address] [facility] Colonoscopy (08/19/2018 7:46 AM DIE STAMPER) Specimen (Source) Anatomical Collection Method Collection Time Re ceived Time Location / / Volume Laterality 08/19/2018 7:46 AM DIE STAMPER Impressions [facility] - 08/19/2018 9:16 AM DIE STAMPER Post-op Diagnoses: ? - One 5 mm polyp in the ascending colon, removed with a cold snare. ? Resected and retrieved. ? - The examination was otherwise n ormal on direct and retroflexion views. ? - Biopsies were taken with a cold forceps for histology in the entire ? colon and in the terminal ileum. Narrative [facility] - 08/19/2018 9:16 AM DIE STAMPER Gonda 2 GI Patient Name: Jonnathan Costa [...] Organization Address City/State/ZIP Code Phon e Number [facility] NA Upper EUS (08/19/2018 7:46 AM DIE STAMPER) Specimen (Source) Anatomical Collection Method Collection Time Re ceived Time Location / / Volume Laterality 08/19/2018 7:46 AM DIE STAMPER Impressions [facility] - 08/19/2018 9:20 AM DIE STAMPER Post-op Diagnoses: ? - Normal esophagus. ? [...] ? features, nor high rigk stigmata. Narrative [facility] - 08/19/2018 9:20 AM DIE STAMPER Gonda 2 GI Patient Name: Jonnathan Costa [...] Organization Address City/State/ZIP Code Phon e Number [facility] NA documented in this encounter Visit Diagnoses Diagnosis Diarrhea Persistent Unexplained documented in this encounter Additional Health Concerns Assessment Noted Time PHQ-9 Depression Total Score: 18 04/28/2018 11:27 AM C DT documented as of this encounter Care Teams Cnc Milling Machinist Relationship Specialty Start Date End Date Ewa Alejandro M.D. PCP - General 03/13/17 01/09/[address] [place] [phone] documented as of this encounter
--- OUTSIDE RECORDS SUMMARY | 2022-05-28 07:22 | XMS_ITS | Encounter Summary ---
:1945 Author Organization [facility] Address [address] [place] [address] Care Team Providers Name Role Phone Ewa Alejandro M.D. Primary Care Provider [phone] Reason for Referral Outpatient (Routine) - Closed Specialty Diagnoses / Referred By Referred To Cont act Procedures Contact Gastroenterology and Emil Zurita [facility] Hepatology [place] [address] [place] [address] Referral ID Status Reason Start Date Expiration Date Visits Requ ested Visits Authorized [id number] Closed 09/15/2018 09/15/2019 1 1 HERMAL SYSTEM INSTALLER MRI/CAT/PET Scan (Routine) - Closed Specialty Diagnoses / Procedures Referred By Contact Refer red To Contact Radiology Diagnoses Pancreatitis Chronic (HCC) Emil Zurita M.D. [facility] Procedures CT Abdomen Pelvis with IV Contrast NV CT ABD&PELVIS W CNTRST HC CT ABD&PELVIS W CNTRST NV CT ABD&PELVIS W CNTRST [address] [place], [place] [address] Referral ID Status Reason Start Date Expiration Date Visits Requ ested Visits Authorized [id number] Closed 09/15/2018 09/15/2019 1 1 HERMAL SYSTEM INSTALLER Reason for Visit Outpatient (Routine) - Closed Specialty Diagnoses / Referred By Referred To Cont act Procedures Contact Gastroenterology and Emil Zurita [facility] Hepatology [place] [address] [place] [address] Referral ID Status Reason Start Date Expiration Date Visits Requ ested Visits Authorized [id number] Closed 07/27/2018 07/27/2019 1 1 Encounter Details Date Type Department Care Team Description 09/15/2018 Office Visit Division of Greyson Zurita Ch Gastroenterology in Rhoda Stein (HCC) (Primary Dx) [place], [place] [address] [facility] [address] [place] [phone] Social History Tobacco Use Types Packs/Day Years [...] do you attend restorationism or Never 2021 jehovah's witness services? Do [...] has my contact information. Multiple questions answered HERMAL SYSTEM INSTALLER documented in this encounter Plan of Treatment Scheduled Referrals Name Type Priority Associated Order Schedule Diagnoses Gastroenterology and Outpatient Routine Expecte d: Hepatology office visit Referral 08/29 (clinic) (Approximate), Expires: 09/15/2020 documented as of this encounter Results CT Abdomen Pelvis with IV Contrast (10/11/2019 11:05 AM GEOTHERMAL SYSTEM INSTALLER) Anatomical Region Laterality Modality Abdomen, Pelvis, Abdominal RST LOS, N/A Comp uted Tomography, Computed Abdominal ARZ LOS, Abdominal FLA LOS [facility] ography Specimen (Source) Anatomical Collection Method Collection Time Re ceived Time Location / / Volume Laterality 10/11/2019 1:13 PM GEOTHERMAL SYSTEM INSTALLER Impressions 10/11/2019 1:24 PM GEOTHERMAL SYSTEM INSTALLER No significant change from the most recent prior study; chronic changes of pancreatitis. Narrative 10/11/2019 1:24 PM GEOTHERMAL SYSTEM INSTALLER EXAM: ??CT ABDOMEN PELVIS WITH IV CONTRAST [...] 25-Hydroxyvitamin D2 and D3 (10/11/2019 9:52 AM GEOTHERMAL SYSTEM INSTALLER) athologist Signature 25-Hydroxy D2 <4.0 ng/mL 10/12/2019 [facility] 9:47 PM GEOTHERMAL SYSTEM INSTALLER 25-Hydroxy D3 15 ng/mL 10/12/2019 [facility] 9:47 PM GEOTHERMAL SYSTEM INSTALLER 25-Hydroxy D 15 (L) ng/mL 10/12/2019 [facility] Total 9:47 PM GEOTHERMAL SYSTEM INSTALLER Comment: Interpretation: 10-19 ng/mL (mild to mod erate deficiency) ----REFERENCE VALUE---- 25-HYDROXY D TOTAL (D2+D3) Optimum level s in the healthy population are 20-50, patients with bone disease may benefit from higher levels within this r stan. ----ADDITIONAL INFORMATION---- This test was developed and its performa nce characteristics determined by [facility] in a manner consistent with CLIA requirements. This test has not been cleared or approved by the [place] d and Drug Administration. Specimen Anatomical Collection Method Collection Time Receive d Time (Source) Location / / Volume Laterality Blood (Blood, 10/11/2019 9:52 AM 10/11/19 20 1:30 Venous) GEOTHERMAL SYSTEM INSTALLER PM GEOTHERMAL SYSTEM INSTALLER Emil Zurita M.D. LAB BLOOD ADD-ON Performing Organization Address City/State/ZIP Code Phon e Number [facility] [address] [place] [address] [facility] [facility] [place] [address] Laboratory Medicine and Pathology [address] [place] Vitamin A and Vitamin E (10/11/2019 9:52 AM GEOTHERMAL SYSTEM INSTALLER) athologist Signature Vitamin A 53.5 32.5 - 78.0 10/12/2019 SDS mcg/dL 10:37 PM GEOTHERMAL SYSTEM INSTALLER Comment: ----ADDITIONAL INFORMATION---- This test was developed and its performa nce characteristics determined by [facility] in a manner consistent with CLIA requirements. This test has not been cleared or approved by the [place] d and Drug Administration. A-Tocopherol, Vitamin E 10.9 5.5 - 17.0 mg/L 10/12/2019 1:35 PM GEOTHERMAL SYSTEM INSTALLER [facility] Specimen Anatomical Collection Method Collection Time Receive d Time (Source) Location / / Volume Laterality Blood (Blood, 10/11/2019 9:52 AM 10/11/19 4:31 Venous) GEOTHERMAL SYSTEM INSTALLER PM GEOTHERMAL SYSTEM INSTALLER Authorizing Provider Result Deloris Zurita M.D. LAB BLOOD NON ADD-ON Performing Organization Address City/[facility]/ZIP Code Phon e Number [facility] [address] [place], [place] [address] [facility] [address] Laboratory Medicine and Pathology [address] A[place]AL[place] (ABNORMAL) Glucose, Fasting (10/11/2019 9:52 AM GEOTHERMAL SYSTEM INSTALLER) P athologist Signature Glucose, P 149 (H) 70 - 100 10/11/2019 DTL mg/dL 11:01 AM GEOTHERMAL SYSTEM INSTALLER Last Intake 17 hr 10/11/2019 DTL 10:14 AM GEOTHERMAL SYSTEM INSTALLER Specimen Anatomical Collection Method Collection Time Receive d Time (Source) Location / / Volume Laterality Blood (Blood, 10/11/2019 9:52 AM 10/11/19 Venous) GEOTHERMAL SYSTEM INSTALLER 10:14 AM GEOTHERMAL SYSTEM INSTALLER Authorizing Provider Result Deloris Zurita M.D. LAB BLOOD NON ADD-ON Performing Organization Address City/State/ZIP Code Phon e Number [facility] - [address] [place], [place] [address] [facility] [place] [address] Laboratories-[facility] [address] (ABNORMAL) Hemoglobin A1c (10/11/2019 9:52 AM GEOTHERMAL SYSTEM INSTALLER) Analysis Performed At Patho logist Time Signature Hemoglobin A1c, 10.2 (H) 4.0 - 5.6 10/11/2019 DTL B % 12:15 PM GEOTHERMAL SYSTEM INSTALLER Comment: Hemoglobin A1c values greater than or eq ual to 6.5 percent are diagnostic for diabetes mellitus. ?? Diagnosis should be confirmed by repeat testing. ??In diabet ic patients, HbA1c goals should be discussed with healthcar e provider. Specimen Anatomical Collection Method Collection Time Receive d Time (Source) Location / / Volume Laterality Blood (Blood, 10/11/2019 9:52 AM 10/11/19 Venous) GEOTHERMAL SYSTEM INSTALLER 10:14 AM GEOTHERMAL SYSTEM INSTALLER Emil Zurita M.D. LAB BLOOD ADD-ON Performing Organization Address City/[facility] Phon e Number [facility] - [address] [place], [place] [address] [facility] [place] [address] Laboratories-[address] (ABNORMAL) Creatinine with Estimated GFR (10/11/2019 9:52 AM GEOTHERMAL SYSTEM INSTALLER) athologist Signature Creatinine 1.26 0.74 - 10/11/2019 DTL 1.35 mg/dL 10:54 AM GEOTHERMAL SYSTEM INSTALLER eGFR-Non 55 (L) >=60 10/11/2019 DTL Black/ mL/min/BSA 10:54 AM GEOTHERMAL SYSTEM INSTALLER Vietnamese Comment: ----ADDITIONAL INFORMATION---- Estimated GFR calculated using the 2009 CKD_EPI creatinine equation. eGFR-Black/ 64 >=60 mL/min/BSA 2019 10:54 AM GEOTHERMAL SYSTEM INSTALLER DTL Comment: ----ADDITIONAL INFORMATION---- Estimated GFR calculated using the 2009 CKD_EPI creatinine equation. Specimen Anatomical Collection Method Collection Time Receive d Time (Source) Location / / Volume Laterality Blood (Blood, 10/11/2019 9:52 AM 10/11/19 Venous) GEOTHERMAL SYSTEM INSTALLER 10:14 AM GEOTHERMAL SYSTEM INSTALLER Emil Zurita M.D. LAB BLOOD ADD-ON Performing Organization Address City/[facility] Code Phon e Number [facility] - [address] [place], [place] [address] [facility] [place] [address] Laboratories-[address] documented in this encounter Visit Diagnoses Diagnosis Pancreatitis Chronic (HCC) - Primary Pancreatitis Chronic (HCC) documented in this encounter Additional Health Concerns Assessment Noted Time PHQ-9 Depression Total Score: 18 04/28/2018 11:27 AM C DT documented as of this encounter Care Teams Bunker Worker Relationship Specialty Start Date End Date Ewa Alejandro M.D. PCP - General 03/13/17 01/09/[address] [place] [phone] documented as of this encounter
--- OUTSIDE RECORDS SUMMARY | 2022-05-28 07:22 | XMS_ITS | Encounter Summary ---
:1945 Author Organization [facility] Address [address] [place] [address] Care Team Providers Name Role Phone Ewa Alejandro M.D. Primary Care Provider [phone] Encounter Details Date Type Department Care Team Description 08/10/2018 Orders Only Division of Gastroenterology in [place], [place] [address] [facility] [address] [place] [address] [place], [place] [phone] (Wo rk) Social History Tobacco Use Types [...] documented as of this encounter Care Teams Shale Processing Technician Relationship Specialty Start Date End Date Ewa Alejandro M.D. PCP - General 03/13/17 01/09/20 [address], [place] [address] documented as of this encounter
--- OUTSIDE RECORDS SUMMARY | 2022-05-28 07:22 | XMS_ITS | Encounter Summary ---
:1945 Author Organization [facility] Address [address] [place] [address] Care Team Providers Name Role Phone Ewa Alejandro M.D. Primary Care Provider [phone] Encounter Details Date Type Department Care Team Description 08/19/2018 Anesthesia Event Division of Chad Cole, Gastroenterology in [facility], [facility], [place], [place] [address] [facility] [address] [place] [address] [phone] Anesthesia Record Procedure Summary Procedure Name Responsible Anesthesia Start Anesthesia Stop Time Anesthesiologist Time EGD Chad Cole, LIFE TRAINER, 08/19/18 0800 08/19/18 0930 (ESOPHAGEALGASTRODU [facility] ODENOSCOPY) Events Date Time Event Comment 08/19/2018 [...] h andoff to the receiving staff during [facility] ch we 1. Identified the patient [...] Mayer APRN, SWEETIE, Time: 807 (created via [facility] procedure documentation); Mask Ventilation: Easy [...] do you attend yazdanism or Never 2021 faith services? Do you [...] Room / Location: Division of Gastroenterology in [place], [place] Anesthesia Start: 0800 Anesthesia Stop: 929 [...] none Anesthesia observations: refractory nausea and vomiting K PITCHER Anesthesia Procedure Notes - Chad Cole APRN, [...] Procedure outcome: successful Airway event: no complications [facility] Anesthesia Preprocedure Evaluation - [...] patient / legal guardian, or through an glass frame fitter; patient evaluated and approved for anesthesia / sedation. The use of blood products not discussed K PITCHER documented in this encounter Plan of Treatment Not on filedocumented as of this encounter Procedures Procedure Name Priority Date/Time Associated Comments Diagnosis LDA ANE ENDOTRACHEAL Routine 08/19/2018 8:22 AM R esults for this AIRWAY BRICK PITCHER procedure are i n the results section. documented in this encounter Results LDA ANE ENDOTRACHEAL AIRWAY (08/19/2018 8:22 AM BRICK PITCHER) Narrative Chad Cole APRN, CRNA - 08/19/2018 8:22 AM BRICK PITCHER Chad Cole APRN, CRNA ? 08/19/2018 ??8:22 [...] ePHEDrine (PF) injection Given 08/19/2018 8:30 AM BRICK PITCHER 10 mg intravenous, As needed, Starting on Fri08/19/18 at 0830, Anesthesia Intra-op fentaNYL injection (SUBLIMAZE) Given 08/19/2018 8:45 AM BRICK PITCHER 50 mcg intravenous, As needed, severe pain or score 7-10 of 10, Starting on Fri08/19/18 at 0805, Anesthesia Intra-op Given 08/19/2018 8:14 AM BRICK PITCHER 50 mcg Given 08/19/2018 8:08 AM BRICK PITCHER 50 mcg lactated ringers New Bag 08/19/2018 9:12 AM BRICK PITCHER intravenous, Continuous Infusion: Per Instructions PRN, Starting on Fri08/19/18 at 0800, Anesthesia Intra-op New Bag 08/19/2018 8:00 AM BRICK PITCHER lidocaine (PF) (cardiac) injection Given 08/19/2018 8:05 AM BRICK PITCHER 100 mg intravenous, As needed, Starting on Fri08/19/18 at 0805, Anesthesia Intra-op ondansetron (PF) injection (ZOFRAN) Given 08/19/2018 8:05 AM BRICK PITCHER 4 mg intravenous, As needed, nausea, vomiting, Starting on Fri08/19/18 at 0805, Anesthesia Intra-op propofol 10 mg/mL infusion Rate/Dose 08/19/2018 8:45 75 mcg/kg/min 4 6.5 mL/hr (DIPRIVAN) Change AM BRICK PITCHER Continuous Infusion: Per Instructions PRN, Starting on Fri08/19/18 at 0807, Anesthesia Intra-op Rate/Dose Change 08/19/2018 8:24 AM BRICK PITCHER 100 mcg/kg/min 62 mL/hr Rate/Dose Change 08/19/2018 8:12 AM BRICK PITCHER 125 mcg/kg/min 77.5 mL/hr propofol injection (DIPRIVAN) Given 08/19/2018 8:45 AM BRICK PITCHER 50 mg intravenous, As needed, Starting on Fri08/19/18 at 0806, Anesthesia Intra-op Given 08/19/2018 8:16 AM BRICK PITCHER 30 mg Given 08/19/2018 8:14 AM BRICK PITCHER 50 mg rocuronium injection (ZEMURON) Given 08/19/2018 8:15 AM BRICK PITCHER 30 mg As needed, Starting on Fri08/19/18 at 0815, Anesthesia Intra-op succinylcholine-0.9% NaCl (PF) injection Given 08/19/2018 8:06 A M BRICK PITCHER 100 mg (ANECTINE) intravenous, As needed, Starting on Fri08/19/18 at 0806, Anesthesia Intra-op sugammadex injection (BRIDION) Given 08/19/2018 9:07 AM BRICK PITCHER 200 mg As needed, Starting on Fri08/19/18 at 0907, Anesthesia Intra-op documented in this encounter Additional Health Concerns Assessment Noted Time PHQ-9 Depression Total Score: 18 04/28/2018 11:27 AM C DT documented as of this encounter Care Teams Deputy Assessor Relationship Specialty Start Date End Date Ewa Alejandro M.D. PCP - General 6/15/17 [address] [place] [address] documented as of this encounter
--- OUTSIDE RECORDS SUMMARY | 2022-05-28 07:22 | XMS_ITS | Encounter Summary ---
:1945 Author Organization [facility] Address [address] [place] [address] Care Team Providers Name Role Phone Ewa Alejandro M.D. Primary Care Provider [phone] Encounter Details Date Type Department Care Team Description 10/07/2018 Clinical Communication Division of Nicholas Triana, Endocrinology in [place], [place] [address] [facility] [address] [place] [address] [phone] Social History Tobacco Use Types Packs/Day Years [...] as of this encounter Care Teams Furniture Assembly Supervisor Relationship Specialty Start Date End Date Ewa Alejandro M.D. PCP - General 03/13/17 01/09/20 [address], [place] [address] documented as of this encounter
--- OUTSIDE RECORDS SUMMARY | 2022-05-28 07:23 | XMS_ITS | Encounter Summary ---
:1945 Author Organization [facility] Address [address] [place] [address] Care Team Providers Name Role Phone Ewa Alejandro M.D. Primary Care Provider [phone] Encounter Details Date Type Department Care Team Description 07/10/2018 Orders Only Division of Gastroenterology in [place], [place] 200 [facility] [address] [place] [address] [place], [place] [phone] (Wo rk) Social History Tobacco Use Types [...] do you attend lutheran or Never 2021 restoration services? Do you [...] as of this encounter Care Teams Scrap Baller Relationship Specialty Start Date End Date Ewa Alejandro M.D. PCP - General 03/13/17 01/09/[address], [place] [address] documented as of this encounter
--- OUTSIDE RECORDS SUMMARY | 2022-05-28 07:23 | XMS_ITS | Encounter Summary ---
:1945 Author Organization [facility] Address [address] [place] [address] Care Team Providers Name Role Phone Ewa Alejandro M.D. Primary Care Provider [phone] Encounter Details Date Type Department Care Team Description 05/08/2018 Orders Only Department of [facility] Santhosh Whatley (Primary Dx) Medicine, [place] Ewa stephen M.D. [facility], in [facility] [address] [place], [place] 300 [facility] [place] [place] [address] [place], [place] [phone] (Work) [phone] Social History Tobacco Use Types Packs/Day Years [...] documented as of this encounter Care Teams Board Lining Machine Operator Relationship Specialty Start Date End Date Ewa Alejandro M.D. PCP - General 03/13/17 01/09/[address] [place] [address] documented as of this encounter
--- OUTSIDE RECORDS SUMMARY | 2022-05-28 07:23 | XMS_ITS | Encounter Summary ---
:1945 Author Organization [facility] Address [address] [place] [address] Care Team Providers Name Role Phone Ewa Alejandro M.D. Primary Care Provider [phone] Encounter Details Date Type Department Care Team Description 07/10/2018 Hospital Encounter Department of Laboratory Emil Zurita, [facility], [facility], in [place], [address] [place] [address] 1025 [facility] [address] [place] [address] [phone] Social History Tobacco Use Types Packs/Day Years [...] do you attend baptist or Never 2021 druze services? Do you [...] of this encounter Care Teams Director Of Public Relations Relationship Specialty Start Date End Date Ewa Alejandro M.D. PCP - General 03/13/17 01/09/20 [address] [place] [address] documented as of this encounter
--- OUTSIDE RECORDS SUMMARY | 2022-05-28 07:23 | XMS_ITS | Encounter Summary ---
:1945 Author Organization [facility] Address [address] [place] [address] Care Team Providers Name Role Phone Shayla Alford D.O. Primary Care Provider [phone] Encounter Details Date Type Department Care Team Description 06/09/2018 Orders Only Department of Family Philip trimble Mellitus Type Medicine, Ewa Barclay, 2 (HCC) (Primary Dx) Clinic, in [place] [address] [place] [phone] Social History Tobacco Use Types Packs/Day [...] do you attend hoahaoism or Never 2021 yazdanism services? Do you [...] COVID19 Pending 08/21/2020 08/21/2020 08/22/2020 6:39 AM AUTO HAULAWAY DRIVER COVID19 Pending 12/23/2020 12/24/2020 12/25/2020 2:43 PM CDT Assessment Noted Time PHQ-9 Depression Total Score: 18 04/28/2018 11:27 AM C DT documented as of this encounter Care Teams [place] Program Coordinator Relationship Specialty Start Date End Date Shayla Alford D.O. PCP - General Internal Medicine 05/22/[address] [address] [phone] (work) documented as of this encounter
--- OUTSIDE RECORDS SUMMARY | 2022-05-28 07:23 | XMS_ITS | Encounter Summary ---
:1945 Author Organization [facility] Address [address] [place] [address] Care Team Providers Name Role Phone Ewa Alejandro M.D. Primary Care Provider [phone] Encounter Details Date Type Department Care Team Description 06/22/2018 Clinical Communication Department of Family Kirill [facility], [facility], in [place] [address] [facility] [address] [phone] Social History Tobacco Use Types Packs/Day Years [...] documented as of this encounter Care Teams Emissions Testing And Repair Technician Relationship Specialty Start Date End Date Ewa Alejandro M.D. PCP - General 03/13/17 01/09/20 [address], [place] [address] documented as of this encounter
--- OUTSIDE RECORDS SUMMARY | 2022-05-28 07:23 | XMS_ITS | Encounter Summary ---
:1945 Author Organization [facility] Address [address] [place] [address] Care Team Providers Name Role Phone Ewa Alejandro M.D. Primary Care Provider Encounter Details Date Type Department Care Team Description 05/12/2018 Clinical Communication Department of Family Kirill Torres [facility], Ewa Barclay, Clinic, in [place] [address] [place] [phone] Social History Tobacco Use Types Packs/Day Years [...] do you attend jain or Never 2021 moravian services? Do you [...] as of this encounter Care Teams Supervisor Maintenance Relationship Specialty Start Date End Date Ewa Alejandro M.D. PCP - General 03/13/17 01/09/20 [address], [place] [address] documented as of this encounter
--- OUTSIDE RECORDS SUMMARY | 2022-05-28 07:23 | XMS_ITS | Encounter Summary ---
:1945 Author Organization [facility] Address [address] [place] [address] Care Team Providers Name Role Phone Ewa Alejandro M.D. Primary Care Provider [phone] Encounter Details Date Type Department Care Team Description 06/22/2018 Clinical Communication Department of Anjana Boateng, Medicine, [place] [facility], [facility], [address] [place], [place] 300 [facility] [address] [place], [place] [phone] (Work) [phone] Social History Tobacco Use Types Packs/Day Years [...] you attend oriental orthodox or Never 2021 adventist services? Do you [...] 06/22/2018 2:02 PM CDT Patient seen at [facility] pharmacy for medication review related to recent hospitalization for chronic diarrhea with nausea and vomiting. Per pharmacist recommendation please change patients medication metforman 1000 mg bid to metforman ER 1000 mg bid and fax new prescription for 90 day supply to [facility] is recommendation is approved. Patient also requesting to be updated on prescription status documented in this encounter Plan of Treatment Not on filedocumented as of this encounter Visit Diagnoses Not on filedocumented in this encounter Additional Health Concerns Assessment Noted Time PHQ-9 Depression Total Score: 18 04/28/2018 11:27 AM C DT documented as of this encounter Care Teams Motor Vehicle Field Representative Relationship Specialty Start Date End Date Ewa Alejandro M.D. PCP - General 03/13/17 01/09/20 [address], [place] [address] documented as of this encounter
--- OUTSIDE RECORDS SUMMARY | 2022-05-28 07:23 | XMS_ITS | Encounter Summary ---
:1945 Author Organization [facility] Address [address] [place] [address] Care Team Providers Name Role Phone Ewa Alejandro M.D. Primary Care Provider Encounter Details Date Type Department Care Team Description 07/14/2018 Hospital Encounter Department of Jamaal Zurita ; Laboratory Medicine Rhoda Stein Dilation Pancreatic Duct (HCC); in [place], [address] [place] [address] Stone Pancreatic Duct (HCC); [place], [place] Pancreatitis Chronic (HCC) [address] [address] [place], [place] [phone] (Work) [phone] Social History Tobacco Use Types Packs/Day Years [...] do you attend buddhism or Never 2021 congregational services? Do you [...] Time Signature Total Weight 280 g 07/18/2018 [facility] 11:07 AM CDT [facility] Duration 48 h 07/18/2018 [facility] 11:07 AM CDT [facility] Total Fat/24 10 (H) 2 - 7 g/24 07/18/2018 [facility] Hr h 12:23 PM CDT [facility] Comment: ----ADDITIONAL INFORMATION---- This test was developed and its performa nce characteristics determined by [facility] in a manner co nsistent with CLIA [...] [facility]IES - [address] [place] [address] 05 [facility] Bile Acids, Bowel Dysfunction, 48 Hour, Feces (07/13/2018 2:30 PM CDT) P athologist Signature Bile Acids, % 0.0 <=3.7 % 07/16/2018 [facility] CDCA + CA total 12:16 PM CDT [facility] Total Bile 138 <=2619 07/16/2018 [facility] Acids mcmol/48h 12:16 PM CDT [facility] Comment: ----ADDITIONAL INFORMATION---- This test was developed and its performa nce characteristics determined by [facility] in a manner consistent with CLIA requirements. [...] [facility] - [address] [place], [place] [address] [facility] documented in this encounter Visit Diagnoses Diagnosis Diarrhea Dilation Pancreatic Duct Stone Pancreatic Duct Pancreatitis Chronic (HCC) documented in this encounter Additional Health Concerns Assessment Noted Time PHQ-9 Depression Total Score: 18 04/28/2018 11:27 AM C DT documented as of this encounter Care Teams Funeral Arranger Relationship Specialty Start Date End Date Ewa Alejandro M.D. PCP - General 03/13/17 01/09/[address] [place] [phone] documented as of this encounter
--- OUTSIDE RECORDS SUMMARY | 2022-05-28 07:23 | XMS_ITS | Encounter Summary ---
:1945 Author Organization [facility] Address [address] [place] [address] Care Team Providers Name Role Phone Ewa Alejandro M.D. Primary Care Provider [phone] Reason for Visit Reason Onset Date Comments Colonoscopy 07/01/2018 Encounter Details Date Type Department Care Team Description 07/01/2018 Clinical Communication Division of Jhonny Zuritaopy Gastroenterology in Rhoda Stein [place], [place] [address] [email or web address] [address] [place] [address] [phone] Social History Tobacco Use Types Packs/Day Years [...] do you attend hindu or Never 2021 church services? Do you [...] documented as of this encounter Care Teams Apple Thinner Relationship Specialty Start Date End Date Ewa Alejandro M.D. PCP - General 03/13/17 01/09/20 [address] [place] [address] documented as of this encounter
--- OUTSIDE RECORDS SUMMARY | 2022-05-28 07:23 | XMS_ITS | Encounter Summary ---
:1945 Author Organization [facility] Address [address] [place] [address] Care Team Providers Name Role Phone Ewa Alejandro M.D. Primary Care Provider Encounter Details Date Type Department Care Team Description 05/08/2018 Clinical Communication Department of Family Kirill Torres [facility] in [facility] [place], [place] [address] [facility] [address] [place] [phone] Social History Tobacco Use Types Packs/Day [...] do you attend anabaptism or Never 2021 anglican services? Do you [...] Dr. Roy. Please call him back at [phone] documented in this encounter Plan of Treatment Not on filedocumented as of this encounter Visit Diagnoses Not on filedocumented in this encounter Additional Health Concerns Assessment Noted Time PHQ-9 Depression Total Score: 18 04/28/2018 11:27 AM C DT documented as of this encounter Care Teams Manager Meeting Relationship Specialty Start Date End Date Ewa Alejandro M.D. PCP - General 03/13/17 01/09/[address] [address] documented as of this encounter
--- OUTSIDE RECORDS SUMMARY | 2022-05-28 07:23 | XMS_ITS | Encounter Summary ---
:1945 Author Organization [facility] Address [address] [place] [address] Care Team Providers Name Role Phone Ewa Alejandro M.D. Primary Care Provider [phone] Reason for Referral Outpatient (Routine) - Closed Specialty Diagnoses / Referred By Referred To Cont act Procedures Contact Gastroenterology and Emil Zurita [facility]at[facility] [place] [address] [place] [address] Referral ID Status Reason Start Date Expiration Date Visits Requ ested Visits Authorized [id number] Closed 07/27/2018 07/27/2019 1 1 Scheduling Instructions Return after testing. Comprehensive denzel ent Outpatient (Routine) - Closed Specialty Diagnoses / Procedures Referred By Contact Refer red To Contact Diagnoses Diarrhea Persistent Unexplained Emil Zurita M.D. [facility] Procedures Colonoscopy [address] [place] [address] Referral ID Status Reason Start Date Expiration Date Visits Requ ested Visits Authorized [id number] Closed 07/27/2018 07/27/2019 1 1 Outpatient (Routine) - Closed Specialty Diagnoses / Procedures Referred By Contact Refer red To Contact Diagnoses Diarrhea Persistent Unexplained Emil Zurita M.D. [facility] Procedures EUS [address] [place] [address] Referral ID Status Reason Start Date Expiration Date Visits Requ ested Visits Authorized [id number] Closed 07/27/2018 07/27/2019 1 1 Outpatient (Routine) - Closed Specialty Diagnoses / Procedures Referred By Contact Refer red To Contact Diagnoses Diarrhea Persistent Unexplained Emil Zurita M.D. [facility] Procedures EGD [address] [place] [address] Referral ID Status Reason Start Date Expiration Date Visits Requ ested Visits Authorized [id number] Closed 07/27/2018 07/27/2019 1 1 Reason for Visit Reason Comments Pancreas Results Outside CT reviewed, recomen dations Encounter Details Date Type Department Care Team Description 07/27/2018 Clinical Division of Tomasa Alex Pancreas; Michael alegre Communication Gastroenterology in [place], R.[place]. (Outside CT [place], [place] [address] reviewed, [address] [facility] recomendations ) [facility], [address] [place] [phone] Social History Tobacco Use Types Packs/Day Years [...] do you attend catholic or Never 2021 congregation services? Do you [...] documented as of this encounter Care Teams Dice Spotter Relationship Specialty Start Date End Date Ewa Alejandro M.D. PCP - General 03/13/17 01/09/20 [address] [place] [phone] documented as of this encounter
--- OUTSIDE RECORDS SUMMARY | 2022-05-28 07:23 | XMS_ITS | Encounter Summary ---
:1945 Author Organization [facility] Address [address] [place] [address] Care Team Providers Name Role Phone Ewa Alejandro M.D. Primary Care Provider [phone] Encounter Details Date Type Department Care Team Description 07/17/2018 Hospital Encounter Department of Jamaal Zurita ; Laboratory Medicine Rhoda Stein Dilation Pancreatic Duct (HCC); in [place], [address] [place] [address] Stone Pancreatic Duct (HCC); [place], [place] Pancreatitis Chronic (HCC) [address] [address] [place], [place] [phone] (Work) [phone] Social History Tobacco Use Types Packs/Day Years [...] do you attend pentecostal or Never 2021 scientologist services? Do you [...] as of this encounter Care Teams Field Identification Specialist Relationship Specialty Start Date End Date Ewa Alejandro M.D. PCP - General 03/13/17 01/09/20 [address] [address] documented as of this encounter
--- OUTSIDE RECORDS SUMMARY | 2022-05-28 07:23 | XMS_ITS | Encounter Summary ---
:1945 Author Organization [facility] Address [address] [place] [address] Care Team Providers Name Role Phone Piero Alejandro M.D. Primary Care Provider [phone] Reason for Referral Outpatient (Routine) - Closed Specialty Diagnoses / Referred By Referred To Cont act Procedures Contact Gastroenterology and Diagnoses Diarrhea Nausea Pancreatitis Chronic (HCC) Gabrielle [facility] Hepatology Piero walton M.D. [address] [place] [address] Referral ID Status Reason Start Date Expiration Date Visits V isits Requested Authorized [id number] Closed Specialty 06/18/2018 06/18/2019 1 1 Services Required Encounter Details Date Type Department Care Team Description 06/18/2018 Clinical Communication Department of [facility] Carlos, [facility], in [place], [address] [address] [place], [place] [phone] (Work) [phone] Social History Tobacco Use Types Packs/Day Years [...] 10/09/2021 organizations such as pentecostal groups, unions, fraPropers or athletic groups, or school groups? How [...] documented as of this encounter Care Teams Recoating Machine Operator Relationship Specialty Start Date End Date Piero Alejandro M.D. PCP - General 03/13/17 01/09/20 [address] [place] [phone] documented as of this encounter
--- OUTSIDE RECORDS SUMMARY | 2022-05-28 07:23 | XMS_ITS | Encounter Summary ---
:1945 Author Organization [facility] Address [address] [place] [address] Care Team Providers Name Role Phone Ewa Alejandro M.D. Primary Care Provider [phone] Reason for Referral MRI/CAT/PET Scan (Routine) - Closed Specialty Diagnoses / Procedures Referred By Contact Refer red To Contact Radiology Diagnoses Diarrhea Dilation Pancreatic Duct Stone Pancreatic Duct Pancreatitis Chronic (HCC) Emil Zurita M.D. [facility] Procedures CT Abdomen Pelvis with IV Contrast CT Abdomen Pelvis without and with IV Contrast [place] CT ABD&PELVIS WO/W CNTRST HC CT ABD&PELVIS WO/W [facility] [place] CT ABD&PELVIS WO/W [facility] [place] CT ABD&PELVIS W [facility]TR[facility] HC CT ABD&PELVIS W [facility]TRST [address] [facility] [place] CT ABD&[place] [address] Referral ID Status Reason Start Date Expiration Date Visits Requ ested Visits Authorized [id number] Closed 07/10/2018 07/10/2019 1 1 Outpatient (Routine) - Closed Specialty Diagnoses / Referred By Referred To Cont act Procedures Contact Gastroenterology and Diagnoses Diarrhea Dilation Pancreatic Duct Stone Pancreatic Duct Pancreatitis Chronic (HCC) Emil Zurita [facility] Hepatology [place] [address] [place] [address] Referral ID Status Reason Start Date Expiration Date Visits Requ ested Visits Authorized [id number] Closed 07/10/2018 07/10/2019 1 1 Scheduling Instructions Return after CT scan, and 48 hour stool test Reason for Visit Reason Comments Stool test diarrhea Pancreas Encounter Details Date Type Department Care Team Description 07/10/2018 Clinical Division of Parminder, Stool test Communication Gastroenterology in [facility], (diarrh ea); [place], [place] Pancreas [address] [place] [address] [place] [address] Social History Tobacco Use Types Packs/Day Years [...] do you attend baptist or Never 2021 latter day services? Do [...] would like to pickup the container in [place]. Disposition/Recommendation: self-care appropriate at this time 07/10/2018. [...] Creatinine with Estimated GFR (08/19/2018 1:16 PM ANESTHESIOLOGIST ASSISTANT CERTIFIED) Analysis Performed At Patho logist Time Signature Creatinine 1.04 0.74 - 08/19/2018 [facility] 1.35 mg/dL 2:27 PM ANESTHESIOLOGIST ASSISTANT CERTIFIED LABORATORIES - [facility] eGFR-Non 70 >=60 08/19/2018 [facility] Black/ mL/min/BSA 2:27 PM ANESTHESIOLOGIST ASSISTANT CERTIFIED LABORATORIES - [facility] Comment: ----ADDITIONAL INFORMATION---- Estimated GFR calculated using the 2009 CKD_EPI creatinine equation. eGFR-Black/ 81 >=60 mL/min/BSA 08/19/2018 2:27 [facility] [place] ANESTHESIOLOGIST ASSISTANT CERTIFIED LABORATORIES - [facility] Comment: ----ADDITIONAL INFORMATION---- Estimated GFR calculated using the 2009 CKD_EPI creatinine equation. Specimen Anatomical Collection Method Collection Time Receive d Time (Source) Location / / Volume Laterality Blood (Blood, 08/19/2018 1:16 PM 08/19/20 18 1:43 Venous) ANESTHESIOLOGIST ASSISTANT CERTIFIED PM ANESTHESIOLOGIST ASSISTANT CERTIFIED Emil Zurita M.D. LAB BLOOD ADD-ON Performing Organization Address City/State/ZIP Code Phon e Number [facility]ORATORIES - [address] [place] [address] [address] [facility] CT Abdomen Pelvis with IV Contrast (08/19/2018 12:43 PM ANESTHESIOLOGIST ASSISTANT CERTIFIED) Anatomical Region Laterality Modality Abdomen, Pelvis, Abdominal RST LOS, Abdominal ARZ LOS, N/A Computed Tomography Abdominal FLA LOS Specimen (Source) Anatomical Collection Method Collection Time Re ceived Time Location / / Volume Laterality 08/19/2018 1:29 PM ANESTHESIOLOGIST ASSISTANT CERTIFIED Impressions 08/19/2018 1:48 PM ANESTHESIOLOGIST ASSISTANT CERTIFIED IMPRESSION: ?? 1. Chronic calcific pancreatitis. Narrative 08/19/2018 1:48 PM ANESTHESIOLOGIST ASSISTANT CERTIFIED EXAM: ??CT ABDOMEN PELVIS WITH IV CONTRAST [...] in course and calibe r. There is llaa-pp-aisvbnkt arthrosclerotic calcification of the aor ta and [...] in course and calibe r. There is qvks-jf-qxvhdfyx arthrosclerotic calcification of the aor ta and [...] Bile Acids, % 0.0 <=3.7 % 07/16/2018 [facility] CDCA + CA total 12:16 PM CDT LABORATORIES - [facility] Total Bile 138 <=2619 07/16/2018 [facility] Acids mcmol/48h 12:16 PM CDT LABORATORIES - [facility] Comment: ----ADDITIONAL INFORMATION---- This test was developed and its performa nce characteristics determined by [facility] in a manner consistent with [...] Phon e Number [facility]IES - [address] [place], [place] [address] [facility] documented in this encounter Visit Diagnoses Diagnosis Diarrhea - Primary Dilation Pancreatic Duct Stone Pancreatic Duct Pancreatitis Chronic (HCC) Diarrhea Dilation Pancreatic Duct Stone Pancreatic Duct Pancreatitis Chronic (HCC) documented in this encounter Additional Health Concerns Assessment Noted Time PHQ-9 Depression Total Score: 18 04/28/2018 11:27 AM C DT documented as of this encounter Care Teams Lpn Rn Hospice Relationship Specialty Start Date End Date Ewa Alejandro M.D. PCP - General 03/13/17 01/09/[address] [phone] documented as of this encounter
--- OUTSIDE RECORDS SUMMARY | 2022-05-28 07:23 | XMS_ITS | Encounter Summary ---
:1945 Author Organization [facility] Address [address] [place] [address] Care Team Providers Name Role Phone Ewa Alejandro M.D. Primary Care Provider [phone] Encounter Details Date Type Department Care Team Description 07/02/2018 Hospital Encounter Department of Jamaal Zurita ; Laboratory Medicine Rhoda Stein Pancreatitis Chronic (HCC) in [place], [address] [place] [address] [address] [place], [place] [phone] [address] (Work) [phone] Social History Tobacco Use Types Packs/Day Years [...] do you attend catholic or Never 2021 church services? Do you [...] Panel, PCR, Feces (07/10/2018 6:00 AM CDT) [facility] Method Time Signature Specimen Source STOOL 07/10/2018 [facility] 8:38 PM CDT [facility] Campylobacter Negative Negative 07/10/2018 [facility] species 8:38 PM CDT [facility] C. difficile toxin Negative Negative 07/10/2018 [facility] 8:38 PM CDT [facility] Plesiomonas Negative Negative 07/10/2018 [facility] shigelloides 8:38 PM CDT [facility] Salmonella species Negative Negative 07/10/2018 [facility] 8:38 PM CDT [facility] Vibrio species Negative Negative 07/10/2018 [facility] 8:38 PM CDT [facility] Vibrio cholerae Negative Negative 07/10/2018 [facility] 8:38 PM CDT [facility] Yersinia species Negative Negative 07/10/2018 [facility] 8:38 PM CDT [facility] Enteroaggregative E. Negative Negative 07/10/2018 [facility] coli (EAEC) 8:38 PM CDT [facility] Enteropathogenic E. Negative Negative 07/10/2018 [facility] coli (EPEC) 8:38 PM CDT [facility] Enterotoxigenic E. Negative Negative 07/10/2018 [facility] coli (ETEC) 8:38 PM CDT [facility] Shiga toxin Negative Negative 07/10/2018 [facility] producing E. coli 8:38 PM CDT [facility] Shigella/Enteroinvas Negative Negative 07/10/2018 [facility] akil E. coli 8:38 PM CDT [facility] Cryptosporidium Negative Negative 07/10/2018 [facility] species 8:38 PM CDT [facility] Cyclospora Negative Negative 07/10/2018 [facility] cayetanensis 8:38 PM CDT [facility] Entamoeba Negative Negative 07/10/2018 [facility] histolytica 8:38 PM CDT [facility] Giardia Negative Negative 07/10/2018 [facility] 8:38 PM CDT [facility] Adenovirus F40/41 Negative Negative 07/10/2018 [facility] 8:38 PM CDT [facility] Astrovirus Negative Negative 07/10/2018 [facility] 8:38 PM CDT [facility] Norovirus GI/GII Negative Negative 07/10/2018 [facility] 8:38 PM CDT [facility] Rotavirus Ag, F Negative Negative 07/10/2018 [facility] 8:38 PM CDT [facility] Sapovirus Negative Negative 07/10/2018 [facility] 8:38 PM CDT [facility] Comment: ----ADDITIONAL INFORMATION---- This assay is performed using the FDA-cl eared FilmArray GI Panel ([employer] Specimen Anatomical Collection Method Collection Time Receive d Time (Source) Location / / Volume Laterality Stool (Stool) 07/10/2018 6:00 AM 07/10/20 18 8:14 CDT PM CDT Emil Zurita M.D. LAB MICROBIOLOGY - GENERAL O RDERABLES Performing Organization Address City/State/[facility] Phon e Number [facility] [address] [place] [address] LAB documented in this encounter Visit Diagnoses Diagnosis Diarrhea Pancreatitis Chronic (HCC) documented in this encounter Additional Health Concerns Assessment Noted Time PHQ-9 Depression Total Score: 18 04/28/2018 11:27 AM C DT documented as of this encounter Care Teams Production Associate Relationship Specialty Start Date End Date Ewa Alejandro M.D. PCP - General 03/13/17 01/09/[address] [address] documented as of this encounter
--- OUTSIDE RECORDS SUMMARY | 2022-05-28 07:23 | XMS_ITS | Encounter Summary ---
:1945 Author Organization [facility] Address [address] [place] [address] Care Team Providers Name Role Phone Ewa Alejandro M.D. Primary Care Provider [phone] Reason for Visit Reason Onset Date Comments Follow-up 05/21/2018 nausea, vomiting and diarrhea Encounter Details Date Type Department Care Team Description 05/21/2018 Clinical Department of [facility], [facility], Follow-up (ambrose hoffman, Communication Community Internal M.D. vomiting and Medicine in [address] diarrhea) Teresa Bryson, [facility] [address] [address] KOBI BRYSON [phone] [address] (Fax) [phone] Social History Tobacco Use Types Packs/Day Years [...] documented as of this encounter Care Teams Women'S Basketball Coach Relationship Specialty Start Date End Date Ewa Alejandro M.D. PCP - General 03/13/17 01/09/[address] [address] documented as of this encounter
--- OUTSIDE RECORDS SUMMARY | 2022-05-28 07:23 | XMS_ITS | Encounter Summary ---
:1945 Author Organization [facility] Address [address] [place] [address] Care Team Providers Name Role Phone Ewa Alejandro M.D. Primary Care Provider [phone] Encounter Details Date Type Department Care Team Description 07/02/2018 Ancillary Procedure Department of Kamala Zurita Personal Radiology in [place] Stein History [place], [place] [address] [facility] [address] [place] [phone] Social History Tobacco Use Types Packs/Day Years [...] do you attend mandaen or Never 2021 jewish services? Do you [...] as of this encounter Care Teams Traffic Signal Supervisor Maintenance Relationship Specialty Start Date End Date Ewa Alejandro M.D. PCP - General 03/13/17 01/09/[address] [address] documented as of this encounter
--- OUTSIDE RECORDS SUMMARY | 2022-05-28 07:23 | XMS_ITS | Encounter Summary ---
:1945 Author Organization [facility] Address [address] [place] [address] Care Team Providers Name Role Phone Ewa Alejandro M.D. Primary Care Provider [phone] Reason for Visit Outpatient (Routine) - Closed Specialty Diagnoses / Referred By Referred To Cont act Procedures Contact Gastroenterology and Diagnoses Diarrhea Nausea Pancreatitis Chronic (HCC) [facility] Hepatology Ewa walton M.D. [address], [place] [address] Referral ID Status Reason Start Date Expiration Date Visits V isits Requested Authorized [id number] Closed Specialty 06/18/2018 06/18/2019 1 1 Services Required Encounter Details Date Type Department Care Team Description 06/25/2018 Comprehensive Visit Division of Parminder, Diarrhea (Primary Dx); Gastroenterology in [place], Nausea; [place] Pancreatitis Chronic (HCC) [address] [facility] [address] [place] [address] [place] [address] Social History Tobacco Use Types Packs/Day Years [...] do you attend judaism or Never 2021 taoist services? Do you belong to any clubs or No 10/09/2021 organizations such as judaism groups, unions, [employer] or athletic groups, or school groups? [...] experience up to 30 bowel movements mostly Madison 6 and 7. The frequency has decreased somewhat over the past 2 months and the consistencyhas become more Madison fiber 6. There are still days where [...] with Dr. Prasanna Bernal at the [facility]. ??? TONSILLECTOMY ??? VASECTOMY Allergies Allergen Reactions [...] day with meals. 06/22/18 06/22/19 Sabine Landis, MASS COMMUNICATIONS INSTRUCTOR, C.N.P. omega-3 fatty acids-fish oil 300-1,000 mg [...] Panel, PCR, Feces (07/10/2018 6:00 AM CDT) [facility] Method Time Signature Specimen Source STOOL 07/10/2018 [facility] 8:38 PM CDT [facility] Campylobacter Negative Negative 07/10/2018 [facility] species 8:38 PM CDT [facility] C. difficile toxin Negative Negative 07/10/2018 [facility] 8:38 PM CDT [facility] Plesiomonas Negative Negative 07/10/2018 [facility] shigelloides 8:38 PM CDT [facility] Salmonella species Negative Negative 07/10/2018 [facility] 8:38 PM CDT [facility] Vibrio species Negative Negative 07/10/2018 [facility] 8:38 PM CDT [facility] Vibrio cholerae Negative Negative 07/10/2018 [facility] 8:38 PM CDT [facility] Yersinia species Negative Negative 07/10/2018 [facility] 8:38 PM CDT [facility] Enteroaggregative E. Negative Negative 07/10/2018 [facility] coli (EAEC) 8:38 PM CDT [facility] Enteropathogenic E. Negative Negative 07/10/2018 [facility] coli (EPEC) 8:38 PM CDT [facility] Enterotoxigenic E. Negative Negative 07/10/2018 [facility] coli (ETEC) 8:38 PM CDT [facility] Shiga toxin Negative Negative 07/10/2018 [facility] producing E. coli 8:38 PM CDT [facility] Shigella/Enteroinvas Negative Negative 07/10/2018 [facility] akil E. coli 8:38 PM CDT [facility] Cryptosporidium Negative Negative 07/10/2018 [facility] species 8:38 PM CDT [facility] Cyclospora Negative Negative 07/10/2018 [facility] cayetanensis 8:38 PM CDT [facility] Entamoeba Negative Negative 07/10/2018 [facility] histolytica 8:38 PM CDT [facility] Giardia Negative Negative 07/10/2018 [facility] 8:38 PM CDT [facility] Adenovirus F40/41 Negative Negative 07/10/2018 [facility] 8:38 PM CDT [facility] Astrovirus Negative Negative 07/10/2018 [facility] 8:38 PM CDT [facility] Norovirus GI/GII Negative Negative 07/10/2018 [facility] 8:38 PM CDT [facility] Rotavirus Ag, F Negative Negative 07/10/2018 [facility] 8:38 PM CDT [facility] Sapovirus Negative Negative 07/10/2018 [facility] 8:38 PM CDT [facility] Comment: ----ADDITIONAL INFORMATION---- This assay is performed using the FDA-cl eared FilmArray GI Panel ([employer] Specimen Anatomical Collection Method Collection Time Receive d Time (Source) Location / / Volume Laterality Stool (Stool) 07/10/2018 6:00 AM 07/10/20 18 8:14 CDT PM CDT Emil Zurita M.D. LAB MICROBIOLOGY - GENERAL O RDERABLES Performing Organization Address City/State/ZIP Code Phon e Number [facility] [address] [place] [address] LAB Vitamin A and Vitamin E (07/02/2018 8:45 AM CDT) P athologist Signature Vitamin A 60.0 32.5 - 78.0 07/07/2018 [facility] mcg/dL 2:06 AM T [facility] Comment: ----ADDITIONAL INFORMATION---- This test was developed and its performa nce characteristics determined by [facility] in a manner consistent with CLIA requirements. This test has not been cleared or approved by the U.[place] d and Drug Administration. A-Tocopherol, Vitamin E 14.1 5.5 - 17.0 07/07/2018 9:25 PM [facility] mg/L T [facility] Comment: ----ADDITIONAL INFORMATION---- This test was developed and its performa nce characteristics determined by [facility] in a manner consistent with CLIA requirements. This test has not been cleared or approved by the [place]. [place] d and Drug Administration. Specimen Anatomical Collection Method Collection Time Receive d Time (Source) Location / / Volume Laterality Blood (Blood, 07/02/2018 8:45 AM 07/03/20 18 4:13 Venous) CDT PM CDT Narrative BANNERE R - 07/07/2018 9:25 PM CDT Specimen Information: Specimen ID: [id number] Specimen Type: Blood Specimen Collection Start Date: 07/02/20 ??8:45 AM Specimen Received Date: 07/03/2018 ??4:1 3 PM Specimen ID: [id number] Specimen Type: Blood Specimen Collection Start Date: 07/02/20 ??8:45 AM Specimen Received Date: 07/03/2018 ??4:3 2 PM Emil Zurita M.D. LAB BLOOD NON ADD-ON Performing Organization Address City/State/ZIP Code Phon e Number [facility] [address] [place], [place] [address] [place] [address] 25-Hydroxyvitamin D2 and D3 (07/02/2018 8:45 AM CDT) athologist Signature 25-Hydroxy D2 <4.0 ng/mL 07/03/2018 [facility] 10:08 PM CDT [facility] 25-Hydroxy D3 24 ng/mL 07/03/2018 [facility] 10:08 PM CDT [facility] 25-Hydroxy D 24 ng/mL 07/03/2018 [facility] Total 10:08 PM CDT [facility] Comment: ----REFERENCE VALUE---- 25-HYDROXY D TOTAL (D2+D3) Optimum level s in the healthy population are 20-50, patients with bone disease may benefit from higher levels within this r stan. ----ADDITIONAL INFORMATION---- This test was developed and its performa nce characteristics determined by [facility] in a manner consistent with CLIA [...] Organization Address City/State/ZIP Code Phon e Number [facility] [address] [place], [place] [address] [facility] Creatinine with Estimated GFR (07/02/2018 8:45 AM CDT) athologist Signature Creatinine 1.01 0.74 - 07/02/2018 [facility] 1.35 mg/dL 11:10 AM CDT [employer] eGFR-Non 73 >=60 07/02/2018 [facility] Black/ mL/min/BSA 11:10 AM CDT [employer] [facility] Comment: ----ADDITIONAL INFORMATION---- Estimated GFR calculated using the 2009 CKD_EPI creatinine equation. eGFR-Black/ 84 >=60 mL/min/BSA 2017 11:10 AM [facility] Comment: ----ADDITIONAL INFORMATION---- Estimated GFR calculated using the 2009 CKD_EPI creatinine equation. Specimen Anatomical Collection Method Collection Time Receive d Time (Source) Location / / Volume Laterality Blood (Blood, 07/02/2018 8:45 AM 07/02/20 Venous) CDT 10:37 AM CDT Emil Zurita M.D. LAB BLOOD ADD-ON Performing Organization Address City/State/ZIP Code Phon e Number [facility] [address] [place] [address] LAB Sodium (07/02/2018 8:45 AM CDT) athologist Signature Sodium, S 141 135 - 145 07/02/2018 [facility] mmol/L 11:10 AM CDT [facility] Specimen Anatomical Collection Method Collection Time Receive d Time (Source) Location / / Volume Laterality Blood (Blood, 07/02/2018 8:45 AM 07/02/20 18 Venous) CDT 10:37 AM CDT Emil Zurita M.D. LAB BLOOD ADD-ON Performing Organization Address City/State/ZIP Code Phon e Number [facility] [address] [place] [address] LAB Potassium (07/02/2018 8:45 AM CDT) athologist [facility] Potassium, S 4.6 3.6 - 5.2 07/02/2018 [facility] mmol/L 11:10 AM CDT [facility] Specimen Anatomical Collection Method Collection Time Receive d Time (Source) Location / / Volume Laterality Blood (Blood, 07/02/2018 8:45 AM 07/02/20 18 Venous) CDT 10:37 AM CDT Emil Zurita M.D. LAB BLOOD ADD-ON Performing Organization Address City/State/ZIP Code Phon e Number [facility] [address] [place] [address] LAB CRP (C-Reactive Protein) (07/02/2018 8:45 AM CDT) [facility] C-Reactive <3.0 <=8.0 mg/L 07/02/2018 [facility] Protein (CRP), 4:22 PM CDT [facility] Specimen Anatomical Collection Method Collection Time Receive d Time (Source) Location / / Volume Laterality Blood (Blood, 07/02/2018 8:45 AM 07/02/20 18 4:03 Venous) CDT PM CDT Emil Zurita M.D. LAB BLOOD ADD-ON Performing Organization Address City/State/ZIP Code Phon e Number [facility] [address] [place] [address] MAC LAB (ABNORMAL) Thyroid Function [place]ajas (07/02/2018 8:45 AM CDT) athologist [facility] TSH, Sensitive 5.1 (H) 0.3 - 4.2 07/02/2018 [facility] mIU/L 12:24 PM CDT [facility] Comment: Biotin has been identified by the capri enriquez as a potential interfering substance. ??Higher concentr ations of biotin may be found in multivitamins, hair/nail supple ments, and workout supplements. ??If the result does not [facility] clinical observations, repeat testing after patient refrains fr om the use of supplements for at least 12 hours. Specimen Anatomical Collection Method Collection Time Receive d Time (Source) Location / / Volume Laterality Blood (Blood, 07/02/2018 8:45 AM 07/02/20 18 Venous) CDT 10:37 AM CDT Emil Zurita M.D. LAB BLOOD ADD-ON Performing Organization Address City/[facility]/ZIP Code Phon e Number [facility] [address] [place] [address] LAB Celiac Disease Serology Lajas (07/02/2018 8:45 AM CDT) Component Value Ref Test Analysis Performed At [facility] gist Range Method Time Signature Immunoglobulin A 151 61 - 07/03/2018 [facility] (IgA), S 356 8:15 AM LABORATORIES - mg/dL CDT [facility] Celiac Disease Negative serology. Celiac di sease unlikely. However, approximately 10% of 07/03/2018 [facility] Interpretation patients with celiac disease are seronegative. Also, patients who are already 10:25 PM LABORATORIES - adhering to a gluten-free diet may be seronegative. If melissa iac disease is CDT [facility] clinically suspected, consider HLA-DQ typing. [facility] Specimen Anatomical Collection Method Collection Time Receive d Time (Source) Location / / Volume Laterality Blood (Blood, 07/02/2018 8:45 AM 07/03/20 18 6:25 Venous) CDT AM CDT Emil Zurita M.D. LAB BLOOD ADD-ON Performing Organization Address City/State/ZIP Code Phon e Number [facility] LABORATORIES - [address] [place], [place] [address] [facility] documented in this encounter Visit Diagnoses Diagnosis Diarrhea - Primary Nausea Pancreatitis Chronic (HCC) Diarrhea documented in this encounter Additional Health Concerns Assessment Noted Time PHQ-9 Depression Total Score: 18 04/28/2018 11:27 AM C DT documented as of this encounter Care Teams Senior Linux Systems Engineer Relationship Specialty Start Date End Date Ewa Alejandro M.D. PCP - General 03/13/17 01/09/[address] [address] documented as of this encounter
--- OUTSIDE RECORDS SUMMARY | 2022-05-28 07:23 | XMS_ITS | Encounter Summary ---
:1945 Author Organization [facility] Address [address] [place] [address] Care Team Providers Name Role Phone Ewa Aljeandro M.D. Primary Care Provider [phone] Reason for Visit Reason Comments Diarrhea complains of vomitting, diar jing, fatigue, and headaches since September - would like a 2nd opinion - h as been seeing Dr. Lawson for this Appointment Request (Routine) - Closed Specialty Diagnoses / Procedures Referred By Contact Refer red To Contact Community Internal Medicine Referral ID Status Reason Start Date Expiration Date Visits Requ ested Visits Authorized [id number] Closed 05/11/2018 05/11/2019 1 1 Encounter Details Date Type Department Care Team Description 05/12/2018 Office Visit Department of Azeem Martino M.D . Nausea And Vomiting (Primary Dx); Community Internal [address], [place]; Medicine in [place] [address] Fatigue; [place], [place], [place] Headache; [address] [address] Pancreatitis Chronic Recurrent (HCC); [facility] Reaction Drug Adverse Initial; [id number] Diabetes Mellitus Type 2 Wit h Diabetic Neuropathy (HCC); [phone] Hypertension Es sential Primary; Stroke (HCC) Social [...] you attend roman catholic or Never 2021 quaker services? Do you [...] is managed by his clinical pharmacist at [facility]. He has been taking Metformin since 1990. He thinks he was started on Victoza around this year. He checks his blood sugar 3-7 times a day. His mood and anxiety have improved since taking Lexapro, which was started two weeks ago. He feels that skilled nursing has had an affect on his anxiety [...] INSERTION INTRAOCULAR LENS Left 04/2008 At the [facility] ??? LASER OF PROSTATE W/ GREEN LIGHT PVP 08/28/2016 Greenlight photoselective vaporization of the prostate and cystoscopy with bladder biopsy and fulguration of a 2cm area; 08/28/[address] Prasanna Bernal at the [facility]. ??? TONSILLECTOMY ??? VASECTOMY SOCIAL HISTORY [...] should discuss with his clinical pharmacist at [facility] regardingmedication change. He will continue current doses of Metformin, NovoLog, and Lantus. Patient was advised to continue current [place] [employer] diet and regular exercise. Self-management [...] his PCP, physicians and clinical pharmacist at [facility]. Return to the clinic as needed. Administrative Billing 40 minutes of this 45 minute visit was spent in face to face counseling and coordination of care. This document serves as a record of services personally performed by Dr. Azeem Martino. It was created on their behalf by Chad Varner, a trained medical coding technician. The creation [...] documented as of this encounter Care Teams Toy Assembler Wood Relationship Specialty Start Date End Date Ewa Alejandro M.D. PCP - General 03/13/17 01/09/20 [address] [place] [address] documented as of this encounter
--- OUTSIDE RECORDS SUMMARY | 2022-05-28 07:23 | XMS_ITS | Encounter Summary ---
:1945 Author Organization [facility] Address [address] [place] [address] Care Team Providers Name Role Phone Ewa Alejandro M.D. Primary Care Provider [phone] Reason for Visit Reason Comments Follow-up bladder cancer Outpatient (Routine) - Closed Specialty Diagnoses / Procedures Referred By Contact Refer red To Contact Diagnoses Cancer Bladder Family History Prasanna Bernal M.D. [facility] Procedures Cystoscopy (specific provider) [address] [place] [address] Referral ID Status Reason Start Date Expiration Date Visits Requ ested Visits Authorized [id number] Closed 01/15/2018 07/14/2018 1 1 Encounter Details Date Type Department Care Team Description 05/21/2018 Procedure visit Department of Urology Prasanna Bernal, Cancer Bladder in [place] Personal History [place] [address] [place] [phone] Social History Tobacco Use Types Packs/Day Years [...] do you attend mosque or Never 2021 mormonism services? Do you belong to any clubs or No 10/09/2021 organizations such as mosque groups, unions, fraCrunched or athletic groups, or school groups? How [...] Priority Date/Time Associated Diagnosis Comme nts CYTOLOGY NON-AIRLINE LOUNGE RECEPTIONIST Routine 05/21/2018 3:31 PM Cancer Bladder Res [...] Component Value Ref Test Analysis Performed At [employer] Range Method Time Signature Result Summary Negative 05/29/2018 [facility] 4:55 PM LABORATORIES - [facility] Karyotype No evidence of 05/29/2018 [facility] urothelial 4:55 PM LABORATORIES - carcinoma. [facility] Reason for Evaluate for 05/29/2018 [facility] referral urothelial 4:55 PM LABORATORIES - carcinoma. [facility] Specimen Varies 05/29/2018 [facility] 4:55 PM LABORATORIES - [facility] Source voided 05/29/2018 [facility] 4:55 PM LABORATORIES - [facility] Released By Miguelito Machuca 05/29/2018 [facility] Pato Crowell, 4:55 PM LABORATORIES - Ph.D. [facility] Interpretation This test result does not rule out the possibility t hat the 05/29/2018 [facility] patient may have a low-grade (i.e. grade 1 or 2) 4:55 PM LABORATORIES - non-invasive papillary urothelial carcinoma. Some patients [facility] with low grade non-invasive papillary urothelial carcinoma [place] do not have abnormalities with this FISH test. Comment: ----ADDITIONAL INFORMATION---- Fluorescence in situ hybridization (FISH ) with centromere probes for chromosomes 3 (D3Z1), 7(D7Z1), 17(D17Z1) , and a locus specific probe for 9p21. This test has been modified from the man ufacturer's instructions. Its performance characteristics were determi darnell by [facility] in a [...] Organization Address City/State/ZIP Code Phon e Number [facility] LABORATORIES - [address] [place], [place] [address] [facility] Cytology Non-AIRLINE LOUNGE RECEPTIONIST (05/21/2018 3:31 PM CDT) Component Value Ref Test Analysis Performed At [facility] gist Range Method Time Signature Gross Description Received 40 05/22/2018 [facility] IC ml of yellow 2:35 PM CDT [facility] alcohol fixed [facility] CYTOLOGY Collection urine void 05/22/2018 [facility] Procedure 2:35 PM CDT [facility] CYTOLOGY Fixative no 05/22/2018 [facility] 2:35 PM CDT [facility] CYTOLOGY Source A. Urine, 05/22/2018 [facility] voided 2:35 PM CDT [facility] CYTOLOGY Clinical History bladder 05/22/2018 [facility] cancer 2:35 PM T [facility] CYTOLOGY Report Jose Khan MD 05/22/2018 [facility] electronically I verify that I have examined all relevant slides/ma terials 2:35 PM T [facility] signed by for the specimen(s) and rendered or [facility] 05/22/2018 [facility] 2:35 PM CDT [facility] CYTOLOGY Interpretation A. Urine, voided (cytospin): Negative for High-Grade 05/22/2018 [facility] Urothelial Carcinoma. 2:35 PM CDT [facility] CYTOLOGY Specimen Anatomical Collection Method Collection Time Receive d Time (Source) Location / / Volume Laterality Varies 05/21/2018 3:31 PM 8 8:42 CDT AM CDT Narrative This result has an attachment that is no t available. Prasanna Bernal M.D. LAB SURG PATH ORDERABLES Performing Organization Address City/State/ZIP Code Phon e Number [facility] [address] [place] [address] CYTOLOGY documented in this encounter Visit Diagnoses Diagnosis Personal History Of Malignant Neoplasm O f Bladder documented in this encounter Additional Health Concerns Assessment Noted Time PHQ-9 Depression Total Score: 18 04/28/2018 11:27 AM C DT documented as of this encounter Care Teams Tactical/Mobile Watch Officer Relationship Specialty Start Date End Date Ewa Alejandro M.D. PCP - General 03/13/17 01/09/20 [address] [place] [address] documented as of this encounter
--- OUTSIDE RECORDS SUMMARY | 2022-05-28 07:23 | XMS_ITS | Encounter Summary ---
:1945 Author Organization [facility] Address [address] [place] [address] Care Team Providers Name Role Phone Ewa Alejandro M.D. Primary Care Provider [phone] Encounter Details Date Type Department Care Team Description 07/02/2018 Hospital Encounter Department of Laboratory Emil Zurita, Diarrhea Medicine in [place] [address] [address] [phone] Social History Tobacco Use Types Packs/Day Years [...] do you attend sikhism or Never 2021 presybeterian services? Do you [...] Transglutaminase), Antibody, IgA (07/02/2018 8:45 AM CDT) [facility] Method Time Signature Tissue <1.2 <4.0 07/03/2018 [facility] Transglutaminase Ab, (Negative 12:51 PM LABORATOR IES - IgA, S ) U/mL CDT [facility] Specimen Anatomical Collection Method Collection Time Receive d Time (Source) Location / / Volume Laterality Blood 07/02/2018 8:45 AM 8 CDT 12:51 PM CDT Emil Zurita M.D. LAB BLOOD ADD-ON Performing Organization Address City/State/ZIP Code Phon e Number [facility] LABORATORIES - [address] [facility] [place] [address] [facility] T4 (Thyroxine), Free, Serum (07/02/2018 8:45 AM CDT) athologist Signature T4 (Thyroxine), 1.2 0.9 - 1.7 07/02/2018 [facility] Free, S ng/dL 2:12 PM CDT [facility] Comment: Biotin has been identified by the capri enriquez as a potential interfering substance. ??Higher concentr ations of biotin may be found in multivitamins, hair/nail supple ments, and workout supplements. ??If the result does not [facility] clinical observations, repeat testing after patient refrains fr om the use of supplements for at least 12 hours. Specimen Anatomical Collection Method Collection Time Receive d Time (Source) Location / / Volume Laterality Blood 07/02/2018 8:45 AM 8 CDT 10:37 AM CDT Emil Zurita M.D. LAB BLOOD ADD-ON Performing Organization Address City/State/ZIP Code Phon e Number [facility] [address] [place] [address] LAB Vitamin A and Vitamin E (07/02/2018 8:45 AM CDT) athologist Signature Vitamin A 60.0 32.5 - 78.0 07/07/2018 [facility] mcg/dL 2:06 AM CDT [facility] Comment: ----ADDITIONAL INFORMATION---- This test was developed and its performa nce characteristics determined by [facility] in a manner consistent with CLIA requirements. This test has not been cleared or approved by the [place] Sus[place] d and Drug Administration. A-Tocopherol, Vitamin E 14.1 5.5 - 17.0 07/07/2018 9:25 PM [facility] mg/L CDT [facility] Comment: ----ADDITIONAL INFORMATION---- This test was developed and its performa nce characteristics determined by [facility] in a manner consistent with CLIA requirements. This test has not been cleared or approved by the [place]. Sus[place] d and Drug Administration. Specimen Anatomical Collection Method Collection Time Receive d Time (Source) Location / / Volume Laterality Blood (Blood, 07/02/2018 8:45 AM 07/03/20 4:13 Venous) CDT PM CDT Narrative [facility]Fidencio R - 07/07/2018 9:25 PM CDT Specimen Information: Specimen ID: [id number] Specimen Type: Blood Specimen Collection Start Date: 07/02/20 ??8:45 AM Specimen Received Date: 07/03/2018 ??4:1 3 PM Specimen ID: [id number] Specimen Type: Blood Specimen Collection Start Date: 07/02/20 ??8:45 AM Specimen Received Date: 07/03/2018 ??4:3 2 PM Emil Zurita M.D. LAB BLOOD NON ADD-ON Performing Organization Address City/[facility] Code Phon e Number [facility] [address] [place], [place] [address] [facility] 25-Hydroxyvitamin D2 and D3 (07/02/2018 8:45 AM CDT) athologist Signature 25-Hydroxy D2 <4.0 ng/mL 07/03/2018 [facility] 10:08 PM CDT [facility] 25-Hydroxy D3 24 ng/mL 07/03/2018 [facility] 10:08 PM CDT [facility] 25-Hydroxy D 24 ng/mL 07/03/2018 [facility] Total 10:08 PM CDT [facility] Comment: ----REFERENCE VALUE---- 25-HYDROXY D TOTAL (D2+D3) Optimum level s in the healthy population are 20-50, patients with bone disease may benefit from higher levels within this r stan. ----ADDITIONAL INFORMATION---- This test was developed and its performa nce characteristics determined by [facility] in a manner consistent with CLIA requirements. This test has not been cleared or approved by the U.[place]. Sus[place] d and Drug Administration. Specimen Anatomical Collection Method Collection Time Receive d Time (Source) Location / / Volume Laterality Blood (Blood, 07/02/2018 8:45 AM 07/03/20 7:49 Venous) CDT AM CDT Eiml Zurita M.D. LAB BLOOD ADD-ON Performing Organization Address City/[facility] Phon e Number [facility] [address] [place], [place] [address] [facility] Creatinine with Estimated GFR (07/02/2018 8:45 AM CDT) athologist Signature Creatinine 1.01 0.74 - 07/02/2018 [facility] 1.35 mg/dL 11:10 AM T [facility] [employer] LAB eGFR-Non 73 >=60 07/02/2018 [facility] Black/ mL/min/BSA 11:10 AM [facility] [place] Comment: ----ADDITIONAL INFORMATION---- Estimated GFR calculated using the 2009 CKD_EPI creatinine equation. eGFR-Black/ 84 >=60 mL/min/BSA 2017 11:10 AM [facility] [employer] [facility] Comment: ----ADDITIONAL INFORMATION---- Estimated GFR calculated using the 2009 CKD_EPI creatinine equation. Specimen Anatomical Collection Method Collection Time Receive d Time (Source) Location / / Volume Laterality Blood (Blood, 07/02/2018 8:45 AM 07/02/20 18 Venous) CDT 10:37 AM CDT Emil Zurita M.D. LAB BLOOD ADD-ON Performing Organization Address City/State/ZIP Code Phon e Number [facility] [address] [place] [address] LAB Sodium (07/02/2018 8:45 AM CDT) athologist Signature Sodium, S 141 135 - 145 07/02/2018 [facility] mmol/L 11:10 AM T [facility] Specimen Anatomical Collection Method Collection Time Receive d Time (Source) Location / / Volume Laterality Blood (Blood, 07/02/2018 8:45 AM 07/02/20 18 Venous) CDT 10:37 AM CDT Emil Zurita M.D. LAB BLOOD ADD-ON Performing Organization Address City/State/[facility] Code Phon e Number [facility] [address] [place] [address] LAB Potassium (07/02/2018 8:45 AM CDT) athologist Signature Potassium, S 4.6 3.6 - 5.2 07/02/2018 [facility] mmol/L 11:10 AM CDT [facility] Specimen Anatomical Collection Method Collection Time Receive d Time (Source) Location / / Volume Laterality Blood (Blood, 07/02/2018 8:45 AM 07/02/20 Venous) CDT 10:37 AM CDT Authorizing Provider Result Deloris Zurita M.D. LAB BLOOD ADD-ON Performing Organization Address City/State/ZIP Code Phon e Number [facility] [address] [place] [address] LAB CRP (C-Reactive Protein) (07/02/2018 8:45 AM CDT) athologist Signature C-Reactive <3.0 <=8.0 mg/L 07/02/2018 [facility] Protein (CRP), 4:22 PM CDT [facility] LAB Specimen Anatomical Collection Method Collection Time Receive d Time (Source) Location / / Volume Laterality Blood (Blood, 07/02/2018 8:45 AM 07/02/20 4:03 Venous) CDT PM CDT Emil Zurita M.D. LAB BLOOD ADD-ON Performing Organization Address City/State/ZIP Code Phon e Number [facility] [address] [place] [address] MAC LAB (ABNORMAL) Thyroid Function [place]yce (07/02/2018 8:45 AM CDT) athologist Signature TSH, Sensitive 5.1 (H) 0.3 - 4.2 07/02/2018 [facility] mIU/L 12:24 PM CDT [facility] Comment: Biotin has been identified by the capri enriquez as a potential interfering substance. ??Higher concentr ations of biotin may be found in multivitamins, hair/nail supple ments, and workout supplements. ??If the result does not [facility] clinical observations, repeat testing after patient refrains fr om the use of supplements for at least 12 hours. Specimen Anatomical Collection Method Collection Time Receive d Time (Source) Location / / Volume Laterality Blood (Blood, 07/02/2018 8:45 AM 07/02/20 18 Venous) CDT 10:37 AM CDT Emil Zurita M.D. LAB BLOOD ADD-ON Performing Organization Address City/[facility]/ZIP Code Phon e Number [facility] [address] [place] [address] LAB Celiac Disease Serology [place]yce (07/02/2018 8:45 AM CDT) Component Value Ref Test Analysis [facility] Method Time Signature Immunoglobulin A 151 61 - 07/03/2018 [facility] (IgA), S 356 8:15 AM LABORATORIES - mg/dL CDT [facility] Celiac Disease Negative serology. Celiac di sease unlikely. However, approximately 10% of 07/03/2018 [facility] Interpretation patients with celiac disease are seronegative. Also, patients who are already 10:25 PM LABORATORIES - adhering to a gluten-free diet may be seronegative. If melissa iac disease is CDT [facility] clinically suspected, consider HLA-DQ typing. CAMPUS Specimen Anatomical Collection Method Collection Time Receive d Time (Source) Location / / Volume Laterality Blood (Blood, 07/02/2018 8:45 AM 07/03/20 18 6:25 Venous) CDT AM CDT Emil Zurita M.D. LAB BLOOD ADD-ON Performing Organization Address City/[facility]/ZIP Code Phon e Number [facility] LABORATORIES - [address] [place] [address] [facility] Thyroperoxidase (TPO) Antibodies, Serum (07/02/2018 8:32 AM CDT) [facility] Method Time Signature Thyroperoxidase Ab, 0.9 <9.0 07/03/2018 [facility] IC S IU/mL 8:28 AM CDT LABORATORIES - [facility] Specimen Anatomical Collection Method Collection Time Receive d Time (Source) Location / / Volume Laterality Blood 07/02/2018 8:32 AM 8 7:45 CDT AM CDT Emil Zurita M.D. LAB BLOOD NON ADD-ON Performing Organization Address City/[facility]/ZIP Code Phon e Number [facility] LABORATORIES - [address] (ABNORMAL) CBC with Differential, Blood (07/02/2018 8:32 AM CDT) [facility] Method Time Signature Hemoglobin 12.1 (L) 13.2 - 07/02/2018 [facility] 16.6 g/dL 10:45 AM CDT [facility] Hematocrit 34.9 (L) 38.3 - 07/02/2018 [facility] 48.6 % 10:45 AM CDT [facility] Erythrocytes 4.01 (L) 4.35 - 07/02/2018 [facility] 5.65 10:45 AM CDT [facility](12[facility] MCV 87.0 78.2 - 07/02/2018 [facility] 97.9 fL 10:45 AM CDT [facility] RBC Distrib Width 12.8 11.8 - 07/02/2018 [facility] 14.5 % 10:45 AM CDT [facility] Platelet Count 209 135 - 317 07/02/2018 [facility] x10(9)/L 10:45 AM CDT [facility] Leukocytes 6.1 3.4 - 9.6 07/02/2018 [facility] x10(9)/L 10:45 AM CDT [facility] Neutrophils 3.97 1.56 - 07/02/2018 [facility] 6.45 10:45 AM CDT [facility] Lymphocytes 1.24 0.95 - 07/02/2018 [facility] 3.07 10:45 AM CDT [facility] Monocytes 0.38 0.26 - 07/02/2018 [facility] 0.81 10:45 AM CDT [facility] Eosinophils 0.50 (H) 0.03 - 07/02/2018 [facility] 0.48 10:45 AM CDT [facility] Basophils 0.03 0.01 - 07/02/2018 [facility] 0.08 10:45 AM CDT [facility] Specimen Anatomical Collection Method Collection Time Receive d Time (Source) Location / / Volume Laterality Blood 07/02/2018 8:32 AM 8 CDT 10:40 AM CDT Emil Zurita M.D. LAB BLOOD ADD-ON Performing Organization Address City/State/ZIP Code Phon e Number [facility] [address] [place] [address] LAB documented in this encounter Visit Diagnoses Diagnosis Diarrhea documented in this encounter Additional Health Concerns Assessment Noted Time PHQ-9 Depression Total Score: 18 04/28/2018 11:27 AM C DT documented as of this encounter Care Teams Mig Tig Welder Relationship Specialty Start Date End Date Ewa Alejandro M.D. PCP - General 03/13/17 01/09/[address]199 [place] [address] documented as of this encounter
--- OUTSIDE RECORDS SUMMARY | 2022-05-28 07:23 | XMS_ITS | Encounter Summary ---
:1945 Author Organization [facility] Address [address] [place] [address] Care Team Providers Name Role Phone Ewa Alejandro M.D. Primary Care Provider [phone] Encounter Details Date Type Department Care Team Description 07/16/2018 Clinical Communication Division of [facility] in [place], [place] [address] [facility] [address] [place] [phone] Social History Tobacco Use Types Packs/Day Years [...] as of this encounter Care Teams Educational Psychology Teacher Relationship Specialty Start Date End Date Ewa Alejandro M.D. PCP - General 03/13/17 01/09/[address] [phone] documented as of this encounter
--- OUTSIDE RECORDS SUMMARY | 2022-05-28 07:24 | XMS_ITS | Encounter Summary ---
:1945 Author Organization [facility] Address [address] [place] [address] Care Team Providers Name Role Phone Ewa Alejandro M.D. Primary Care Provider Encounter Details Date Type Department Care Team Description 02/20/2018 Orders Only Department of Family M[facility] [address] [place] [phone] (Wo rk) Social History Tobacco Use Types [...] do you attend mandaeism or Never 2021 zoroastrian services? Do you [...] on filedocumented in this encounter Care Teams Music Arranger Relationship Specialty Start Date End Date Ewa Alejandro M.D. PCP - General 03/13/17 01/09/20 [address] [place] [phone] documented as of this encounter
--- OUTSIDE RECORDS SUMMARY | 2022-05-28 07:24 | XMS_ITS | Encounter Summary ---
:1945 Author Organization [facility] Address [address] [place] [address] Care Team Providers Name Role Phone Ewa Alejandro M.D. Primary Care Provider [phone] Encounter Details Date Type Department Care Team Description 02/16/2018 Hospital Encounter Department of Laboratory Kirill Nicholas Diarrhea Medicine in [place], M.D. [place] [address] [place] [phone] Social History Tobacco Use Types Packs/Day Years [...] do you attend yarsani or Never 2021 presybeterian services? Do you [...] athologist Signature C. difficile Negative Negative 02/17/2018 [facility] Toxin PCR, F 10:41 PM CDT [facility] Comment: Notes\S\\S\Jonnathan Costa as [id number] Specimen Anatomical Collection Method Collection Time Receive d Time (Source) Location / / Volume Laterality Stool (Stool) 02/17/2018 8:00 AM 02/18/20 18 9:54 CDT PM CDT Ewa Alejandro M.D. LAB MICROBIOLOGY - GEN ERAL ORDERABLES Performing Organization Address City/State/ZIP Code Phon e Number [facility] [address] [place] [address] MAC LAB documented in this encounter Visit Diagnoses Diagnosis Diarrhea documented in this encounter Care Teams Hot Dip Galvanizer Relationship Specialty Start Date End Date Ewa Alejandro M.D. PCP - General 03/13/17 01/09/20 [address], [place] [address] documented as of this encounter
--- OUTSIDE RECORDS SUMMARY | 2022-05-28 07:24 | XMS_ITS | Encounter Summary ---
:1945 Author Organization [facility] Address [address] [place] [address] Care Team Providers Name Role Phone Ewa Alejandro M.D. Primary Care Provider [phone] Reason for Visit Reason Comments Follow-up final episode of diarrhea oc cured on 02/22/2018 with patient now having upper abdominal discomfort Appointment Request (Routine) - Closed Specialty Diagnoses / Procedures Referred By Contact Refer red To Contact Family Medicine Referral ID Status Reason Start Date Expiration Date Visits Requ ested Visits Authorized [id number] Closed 02/18/2018 02/18/2019 1 1 Encounter Details Date Type Department Care Team Description 02/25/2018 Office Visit Department of Family Alicia ch (Primary Dx); Medicine, Ewa Turner, Joseffi ciency Renal; Clinic, in [place] Diabetes Mellitus Type 2 (HCC) [place] [address] [place] [phone] Social History Tobacco Use Types Packs/Day Years [...] 10/09/2021 organizations such as religious groups, unions, fraThe Roberts Group or athletic groups, or school groups? [...] at 2.22 and he subsequently went to [facility] for IV fluids. Labs were rechecked again [...] 08/28/[address] Prasanna Bernal at the [facility] [place]. ??? TONSILLECTOMY N/A PREVENTIVE SERVICES Social History [...] DIAGNOSTICS CT abdomen/pelvis obtained on 02/16/2018 at [facility]: FINDINGS: Abdomen: No liver lesions. [...] behalf by Lulu Roldan, a trained medical receptionist biller. The creation of this record is based on the scribe's personal observations and the provider's statements to them. This document has been christie cked and approved by the attending provider. documented in this encounter Plan of Treatment Not on filedocumented as of this encounter Visit Diagnoses Diagnosis Diarrhea - Primary Insufficiency Renal Diabetes Mellitus Type 2 (HCC) documented in this encounter Care Teams Trade Marker Relationship Specialty Start Date End Date Ewa Alejandro M.D. PCP - General 03/13/17 01/09/20 [address] [place] [phone] documented as of this encounter
--- OUTSIDE RECORDS SUMMARY | 2022-05-28 07:24 | XMS_ITS | Encounter Summary ---
:1945 Author Organization [facility] Address [address] [place] [address] Care Team Providers Name Role Phone Ewa Alejandro M.D. Primary Care Provider Encounter Details Date Type Department Care Team Description 02/17/2018 Clinical Communication Department of Family Kirill Torres [facility], Ewa Barclay, Clinic, in [place] [address] [place] [phone] Social History Tobacco Use Types Packs/Day Years [...] do you attend jainism or Never 2021 rastafarian services? Do you [...] IV fluids per verbal order faxed to [facility] due to labfindings Telephone Encounter - [...] on filedocumented in this encounter Care Teams Corner Brace Block Machine Operator Relationship Specialty Start Date End Date Ewa Alejandro M.D. PCP - General 03/13/17 01/09/20 [address] [place] [phone] documented as of this encounter
--- OUTSIDE RECORDS SUMMARY | 2022-05-28 07:24 | XMS_ITS | Encounter Summary ---
:1945 Author Organization [facility] Address [address] [place] [address] Care Team Providers Name Role Phone Ewa Alejandro M.D. Primary Care Provider [phone] Reason for Referral Outpatient (Routine) - Closed Specialty Diagnoses / Procedures Referred By Contact Refer red To Contact Neurology Diagnoses Dizziness And Giddiness ARMAAN Alejandro [facility] Felicita Mcneil M.D. [address], [place] [address] Referral ID Status Reason Start Date Expiration Date Visits V isits Requested Authorized [id number] Closed Specialty 10/20/2017 04/18/2018 1 1 Services Required HERIZATION ADMINISTRATOR Reason for Visit Reason Comments Dizziness noted to have been started s cony cardiac medication changes Encounter Details Date Type Department Care Team Description 10/20/2017 Office Visit Department of Family Philip Echeverria ziness And Giddiness Medicine, Ewa Barclay, (Primary Dx) Clinic, in [place] [address] [place] [address] [phone] Social History Tobacco Use Types Packs/Day Years [...] do you attend taoism or Never 2021 taoism services? Do you [...] Comments Blood Pressure 128/68 10/20/2017 10:45 AM WEATHERIZATION ADMINISTRATOR Pulse 76 10/20/2017 10:36 AM WEATHERIZATION ADMINISTRATOR Temperature 36.6 ??C (97.9 ??F) 10/20/2017 10:36 AM WEATHERIZATION ADMINISTRATOR Respiratory Rate 16 10/20/2017 10:36 AM WEATHERIZATION ADMINISTRATOR Oxygen Saturation 96% 10/20/2017 10:36 AM WEATHERIZATION ADMINISTRATOR room a ir Inhaled Oxygen Concentration - - Weight 110 kg (242 lb 13.4 oz) 10/20/2017 10:36 AM WEATHERIZATION ADMINISTRATOR Height 188 cm (6' 2.02) 10/20/2017 10:36 AM WEATHERIZATION ADMINISTRATOR Body Mass Index 31.16 10/20/2017 10:36 AM WEATHERIZATION ADMINISTRATOR documented in this encounter Progress Notes Ewa [...] He states that he was at a alliance party the other day that he struggled [...] Asthma NOS Pulmonary symptomatology, diagnosis at the [place] unclear, but probably some degree of COPD. [...] 08/28/[address] Prasanna Bernal at the [facility]. ??? TONSILLECTOMY N/A PREVENTIVE SERVICES [...] ecked and approved by the attending provider. HERIZATION ADMINISTRATOR documented in this encounter Plan of Treatment Scheduled Referrals Name Type Priority Associated Diagnoses [facility] - General Outpatient Referral Routine Dizziness And Expected: consult (clinic) Giddiness 10/20/2017 (Approximate), Expires: 10/20/2020 documented as of this encounter Visit Diagnoses Diagnosis Dizziness And Giddiness - Primary documented in this encounter Care Teams Record Changer Tester Relationship Specialty Start Date End Date Ewa Alejandro M.D. PCP - General 03/13/17 01/09/20 [address] [place] [phone] documented as of this encounter
--- OUTSIDE RECORDS SUMMARY | 2022-05-28 07:24 | XMS_ITS | Encounter Summary ---
:1945 Author Organization [facility] Address [address] [place] [address] Care Team Providers Name Role Phone Ewa Alejandro M.D. Primary Care Provider [phone] Encounter Details Date Type Department Care Team Description 02/17/2018 Clinical Communication Department of Anjana Boateng, Medicine, [facility], [facility], [address] [place], [place] [address] [facility] [address] [place], [place] [phone] (Work) [phone] Social History Tobacco Use Types Packs/Day Years [...] do you attend advent or Never 2021 anglican services? Do you [...] on filedocumented in this encounter Care Teams Pharmacy Technician Infusion Relationship Specialty Start Date End Date Ewa Alejandro M.D. PCP - General 03/13/17 01/09/[address] [phone] documented as of this encounter
--- OUTSIDE RECORDS SUMMARY | 2022-05-28 07:24 | XMS_ITS | Encounter Summary ---
:1945 Author Organization [facility] Address [address] [place] [address] Care Team Providers Name Role Phone Ewa Alejandro M.D. Primary Care Provider [phone] Encounter Details Date Type Department Care Team Description 02/18/2018 Clinical Communication Department of Family Kirill Torres [facility], [facility], in [place] [address] [place] [address] [phone] Social History Tobacco Use Types Packs/Day Years [...] on filedocumented in this encounter Care Teams Overseamer Relationship Specialty Start Date End Date Ewa Alejandro M.D. PCP - General 03/13/17 01/09/20 [address] [place] [phone] documented as of this encounter
--- OUTSIDE RECORDS SUMMARY | 2022-05-28 07:24 | XMS_ITS | Encounter Summary ---
:1945 Author Organization [facility] Address [address] [place] [address] Care Team Providers Name Role Phone Ewa Alejandro M.D. Primary Care Provider [phone] Reason for Visit Reason Comments Diarrhea diarrhea x 10 days with 20 p ound weight loss. vomiting starting today Encounter Details Date Type Department Care Team Description 02/16/2018 Office Visit Department of [facility] Alicia ch (Primary Dx); Medicine, Ewa [facility], in [place] [address] [place] [phone] Social History Tobacco Use Types Packs/Day Years [...] do you attend jewish or Never 2021 catholic services? Do you [...] 08/28/[address] Prasanna Bernal at the [facility]. ??? TONSILLECTOMY N/A PREVENTIVE SERVICES Social [...] and hyperkalemia Discussed sending him over to [facility] for IV fluids which he [...] their behalf by Lulu Roldan, a trained phlebotomist medical lab assistant. The creation of this record is [...] Potassium, S 5.0 3.6 - 5.2 02/17/2018 [facility] mmol/L 1:45 PM CDT [facility] [place] [facility] Sodium, S 134 (L) 135 - 145 02/17/2018 [facility] mmol/L 1:45 PM CDT [facility] Chloride, S 98 98 - 107 02/17/2018 [facility] mmol/L 1:45 PM CDT [facility] Bicarbonate, S 21 (L) 22 - 29 02/17/2018 [facility] mmol/L 1:45 PM CDT [facility] Anion Gap 15 7 - 15 02/17/2018 [facility] 1:45 PM CDT [facility] BUN (Blood Urea 69 (H) 8 - 24 02/17/2018 [facility] Nitrogen), S mg/dL 1:45 PM CDT [facility] Creatinine 2.22 (H) 0.74 - 02/17/2018 [facility] 1.35 mg/dL 1:45 PM [facility] eGFR-Non 28 (L) >=60 02/17/2018 [facility] Black/ mL/min/BSA 1:45 PM T [facility] LAB Comment: ----ADDITIONAL INFORMATION---- Estimated GFR calculated using the 2009 CKD_EPI creatinine equation. eGFR-Black/ 33 (L) >=60 mL/min/BSA 02/17/2018 1:45 [facility] LAB Comment: ----ADDITIONAL INFORMATION---- Estimated GFR calculated using the 2009 CKD_EPI creatinine equation. Calcium, Total, S 9.3 8.8 - 10.2 mg/dL 02/17/2018 1:45 PM [facility] Glucose, S 336 (H) 70 - 140 mg/dL 02/17/2018 1:45 PM [facility] Specimen Anatomical Collection Method Collection Time Receive d Time (Source) Location / / Volume Laterality Blood (Blood, 02/17/2018 10:41 02/17/2018 Venous) AM CDT 12:54 PM CDT Ewa Alejandro M.D. LAB BLOOD ADD-ON Performing Organization Address City/State/ZIP Code Phon e Number [facility] [address] [place] [address] LAB C. difficile Toxin PCR, Feces (02/17/2018 8:00 AM CDT) P athologist Signature C. difficile Negative Negative 02/17/2018 [facility] Toxin PCR, F 10:41 PM CDT [facility] Comment: Notes\S\\S\Jonnathan Costa as [id number] Specimen Anatomical Collection Method Collection Time Receive d Time (Source) Location / / Volume Laterality Stool (Stool) 02/17/2018 8:00 AM 02/18/20 9:54 CDT PM CDT Ewa Alejandro M.D. LAB MICROBIOLOGY - GEN ERAL ORDERABLES Performing Organization Address City/State/ZIP Code Phon e Number [facility]- [address] [place] [address] [facility] [facility] GI Pathogen Panel, PCR, Feces (02/16/2018 1:00 PM CDT) [facility] Method Time Signature Specimen Source STOOL 02/17/2018 [facility] 6:26 AM CDT [facility] Campylobacter Negative Negative 02/17/2018 [facility] species 6:26 AM CDT [facility] C. difficile toxin Negative Negative 02/17/2018 [facility] 6:26 AM CDT [facility] Plesiomonas Negative Negative 02/17/2018 [facility] shigelloides 6:26 AM CDT [facility] Salmonella species Negative Negative 02/17/2018 [facility] 6:26 AM CDT [facility] Vibrio species Negative Negative 02/17/2018 [facility] 6:26 AM CDT [facility] Vibrio cholerae Negative Negative 02/17/2018 [facility] 6:26 AM CDT [facility] Yersinia species Negative Negative 02/17/2018 [facility] 6:26 AM CDT [facility] Enteroaggregative E. Negative Negative 02/17/2018 [facility] coli (EAEC) 6:26 AM CDT [facility] Enteropathogenic E. Negative Negative 02/17/2018 [facility] coli (EPEC) 6:26 AM CDT [facility] Enterotoxigenic E. Negative Negative 02/17/2018 [facility] coli (ETEC) 6:26 AM CDT [facility] Shiga toxin Negative Negative 02/17/2018 [facility] producing E. coli 6:26 AM CDT [facility] Shigella/Enteroinvas Negative Negative 02/17/2018 [facility] [place] akil E. coli 6:26 AM CDT [facility] Cryptosporidium Negative Negative 02/17/2018 [facility] species 6:26 AM CDT [facility] Cyclospora Negative Negative 02/17/2018 [facility] cayetanensis 6:26 AM CDT [facility] Entamoeba Negative Negative 02/17/2018 [facility] histolytica 6:26 AM CDT [facility] Giardia Negative Negative 02/17/2018 [facility] 6:26 AM CDT [facility] Adenovirus F40/41 Negative Negative 02/17/2018 [facility] 6:26 AM CDT [facility] Astrovirus Negative Negative 02/17/2018 [facility] 6:26 AM CDT [facility] Norovirus GI/GII Negative Negative 02/17/2018 [facility] 6:26 AM CDT [facility] Rotavirus Ag, F Negative Negative 02/17/2018 [facility] 6:26 AM CDT [facility] Sapovirus Negative Negative 02/17/2018 [facility] 6:26 AM CDT [facility] Comment: ----ADDITIONAL INFORMATION---- This assay is performed using the FDA-cl eared FilmArray GI Panel ([employer] Specimen Anatomical Collection Method Collection Time Receive d Time (Source) Location / / Volume Laterality Stool (Stool) 02/16/2018 1:00 PM 02/17/20 18 CDT 11:25 PM CDT Ewa Alejandro M.D. LAB MICROBIOLOGY - GEN ERAL ORDERABLES Performing Organization Address City/State/ZIP Code Phon e Number [facility] [address] [place] [address] LAB (ABNORMAL) Comprehensive Metabolic Panel (02/16/2018 10:49 AM CDT) Analysis Performed At Patho logist Time Signature Potassium, S 5.5 (H) 3.6 - 5.2 02/16/2018 [facility] mmol/L 1:56 PM CDT [facility] Sodium, S 137 135 - 145 02/16/2018 [facility] mmol/L 1:56 PM CDT [facility] Chloride, S 100 98 - 107 02/16/2018 [facility] mmol/L 1:56 PM CDT [facility] Bicarbonate, S 19 (L) 22 - 29 02/16/2018 [facility] mmol/L 1:56 PM CDT [facility] Anion Gap 18 (H) 7 - 15 02/16/2018 [facility] 1:56 PM [facility] [place] [facility] BUN (Blood Urea 66 (H) 8 - 24 02/16/2018 [facility] Nitrogen), S mg/dL 1:56 PM [facility] [place] [facility] Creatinine 2.32 (H) 0.74 - 02/16/2018 [facility] 1.35 mg/dL 1:56 PM [facility] [place] [facility] eGFR-Non 27 (L) >=60 02/16/2018 [facility] Black/ mL/min/BSA 1:56 PM [facility] [place] [facility] Comment: ----ADDITIONAL INFORMATION---- Estimated GFR calculated using the 2009 CKD_EPI creatinine equation. eGFR-Black/ 31 (L) >=60 mL/min/BSA 02/16/2018 1:56 [facility] [place] [facility] Comment: ----ADDITIONAL INFORMATION---- Estimated GFR calculated using the 2009 CKD_EPI creatinine equation. Calcium, Total, S 8.8 8.8 - 10.2 02/16/2018 7:45 PM [facility] mg/dL [facility] [place] [facility] Glucose, S 276 (H) 70 - 140 mg/dL 02/16/2018 1:56 PM [facility] [place] [facility] Protein, Total, S 7.0 6.3 - 7.9 g/dL 02/16/2018 1:56 P M [facility] [place] [facility] Albumin, S 4.4 3.5 - 5.0 g/dL 02/16/2018 1:56 PM [facility] [place] [facility] Aspartate 16 8 - 48 U/L 02/16/2018 1:[address] [facility] Aminotransferase (AST), S [facility] [place] [facility] Alkaline Phosphatase, S 121 (H) 45 - 115 U/L 02/16/2018 1: 56 PM [facility] [place] [facility] Alanine Aminotransferase 17 7 - 55 U/L 02/16/2018 1:5 6 PM [facility] (ALT), S [facility] [place] [facility] Bilirubin, Total, S 0.6 <=1.2 mg/dL 02/16/2018 1:56 PM [facility] LAB Specimen Anatomical Collection Method Collection Time Receive d Time (Source) Location / / Volume Laterality Blood (Blood, 02/16/2018 10:49 02/16/2018 1:03 Venous) AM CDT PM CDT Ewa Alejandro M.D. LAB BLOOD ADD-ON Performing Organization Address City/State/ZIP Code Phon e Number [facility] [address] [place] [address] LAB (ABNORMAL) CBC with Differential, Blood (02/16/2018 10:49 AM CDT) [facility] Method Time Signature Hemoglobin 14.8 13.2 - 02/16/2018 [facility] 16.6 g/dL 11:24 AM [facility] Hematocrit 41.0 38.3 - 02/16/2018 [facility] 48.6 % 11:24 AM [facility] Erythrocytes 4.76 4.35 - 02/16/2018 [facility] 5.65 11:24 AM CDT [facility] x10(12)/L [employer] LAB MCV 86.1 78.2 - 02/16/2018 [facility] 97.9 fL 11:24 AM [facility] RBC Distrib Width 13.4 11.8 - 02/16/2018 [facility] 14.5 % 11:24 AM [facility] Platelet Count 230 135 - 317 02/16/2018 [facility] x10(9)/L 11:24 AM [facility] Leukocytes 13.2 (H) 3.4 - 9.6 02/16/2018 [facility] x10(9)/L 11:24 AM [facility] Neutrophils 9.97 (H) 1.56 - 02/16/2018 [facility] 6.45 11:24 AM CDT [facility] x10(9)/L [facility] LAB Lymphocytes 1.63 0.95 - 02/16/2018 [facility] 3.07 11:24 AM CDT [facility] x10(9)/L [facility] LAB Monocytes 0.71 0.26 - 02/16/2018 [facility] 0.81 11:24 AM CDT [facility] x10(9)/L [facility] [place] [facility] Eosinophils 0.85 (H) 0.03 - 02/16/2018 [facility] 0.48 11:24 AM CDT [facility] x10(9)/[facility] [place] [facility] Basophils 0.02 0.01 - 02/16/2018 [facility] 0.08 11:24 AM CDT [facility] x10(9)/[facility] [place] [facility] Specimen Anatomical Collection Method Collection Time Receive d Time (Source) Location / / Volume Laterality Blood (Blood, 02/16/2018 10:49 02/16/2018 Venous) AM CDT 10:52 AM CDT Ewa Alejandro M.D. LAB BLOOD ADD-ON Performing Organization Address City/State/ZIP Code Phon e Number [facility]- [address] [place] [address] [place] [facility]- [address] [place] [address] [place] [facility] documented in this encounter Visit Diagnoses Diagnosis Diarrhea - Primary Insufficiency Renal documented in this encounter Care Teams Mill Representative Relationship Specialty Start Date End Date Ewa Alejandro M.D. PCP - General 03/13/17 01/09/20 [address] [place] [phone] documented as of this encounter
--- OUTSIDE RECORDS SUMMARY | 2022-05-28 07:24 | XMS_ITS | Encounter Summary ---
:1945 Author Organization [facility] Address [address] [place] [address] Care Team Providers Name Role Phone Ewa Alejandro M.D. Primary Care Provider Encounter Details Date Type Department Care Team Description 04/28/2018 Hospital Encounter Department of Lea Hall es Mellitus Laboratory Medicine Ewa brunson, Type 2 (HCC) in [place] [address] [place] [phone] Social History Tobacco Use Types Packs/Day [...] do you attend episcopal or Never 2021 amish services? Do you [...] Method Time Signature Microalbumin 613.6 mg/L 04/28/[address] [facility] 2:46 PM CDT [facility] Creatinine 133 mg/dL 04/28/[address] [facility] 2:46 PM T [facility] Albumin/Creatinin 461 (H) <17 mg/g 04/28/[address] [facility] e Ratio 2:46 PM CDT [facility] LAB Specimen Anatomical Collection Method Collection Time Receive d Time (Source) Location / / Volume Laterality Urine (Urine, 04/28/2018 8:49 AM 04/28/20 18 Clean Catch) CDT 10:59 AM CDT Ewa Alejandro M.D. LAB URINE ORDERABLES Performing Organization Address City/State/ZIP Code Phon e Number [facility] [address] [place] [address] LAB documented in this encounter Visit Diagnoses Diagnosis Diabetes Mellitus Type 2 (HCC) documented in this encounter Additional Health Concerns Assessment Noted Time PHQ-9 Depression Total Score: 18 04/28/2018 11:27 AM C DT documented as of this encounter Care Teams Theatre Director Relationship Specialty Start Date End Date Ewa Alejandro M.D. PCP - General 03/13/17 01/09/200 [address], [place] [phone] documented as of this encounter
--- OUTSIDE RECORDS SUMMARY | 2022-05-28 07:24 | XMS_ITS | Encounter Summary ---
:1945 Author Organization [facility] Address [address] [place] [address] Care Team Providers Name Role Phone Ewa Alejandro M.D. Primary Care Provider [phone] Encounter Details Date Type Department Care Team Description 02/19/2018 Hospital Encounter Department of Laboratory Sunny Martinez, Dehydration Medicine [place] [address] [facility] [address] [place], [place] [phone] (Wo rk) Social History Tobacco Use Types [...] do you attend spiritism or Never 2021 pentecostal services? Do you [...] (02/19/2018 9:34 AM CDT) Analysis Performed At [facility] Time Signature Potassium, S 5.0 3.6 - 5.2 02/19/2018 [facility] mmol/L 3:28 PM [facility] Sodium, S 143 135 - 145 02/19/2018 [facility] mmol/L 3:28 PM [facility] Chloride, S 105 98 - 107 02/19/2018 [facility] mmol/L 3:28 PM [facility] Bicarbonate, S 22 22 - 29 02/19/2018 [facility] mmol/L 1:55 PM [facility] Anion Gap 16 (H) 7 - 15 02/19/2018 [facility] 3:28 PM [facility] BUN (Blood Urea 43 (H) 8 - 24 02/19/2018 [facility] Nitrogen), S mg/dL 1:55 PM [facility] Creatinine 1.49 (H) 0.74 - 02/19/2018 [facility] 1.35 mg/dL 1:55 [facility] LAB eGFR-Non 46 (L) >=60 02/19/2018 [facility] Black/ mL/min/BSA 1:55 [facility] Comment: ----ADDITIONAL INFORMATION---- Estimated GFR calculated using the 2009 CKD_EPI creatinine equation. eGFR-Black/ 53 (L) >=60 mL/min/BSA 02/19/2018 1:55 [facility] LAB Comment: ----ADDITIONAL INFORMATION---- Estimated GFR calculated using the 2009 CKD_EPI creatinine equation. Calcium, Total, S 9.3 8.8 - 10.2 mg/dL 02/19/2018 1:55 PM [facility] [place] [facility] Glucose, S 292 (H) 70 - 140 mg/dL 02/19/2018 1:55 PM [facility] [place] [facility] Specimen Anatomical Collection Method Collection Time Receive d Time (Source) Location / / Volume Laterality Blood (Blood, 02/19/2018 9:34 AM 02/20/20 18 Venous) CDT 11:18 AM CDT Sunny Martinez P.A.-C. LAB BLOOD ADD-ON Performing Organization Address City/State/ZIP Code Phon e Number [facility] [address] [address] [place] [facility] [address] LAB documented in this encounter Visit Diagnoses Diagnosis Dehydration documented in this encounter Care Teams Blood Bank Booking Clerk Relationship Specialty Start Date End Date Ewa Alejandro M.D. PCP - General 03/13/17 01/09/[address] [phone] documented as of this encounter
--- OUTSIDE RECORDS SUMMARY | 2022-05-28 07:24 | XMS_ITS | Encounter Summary ---
:1945 Author Organization [facility] Address [address] [place] [address] Care Team Providers Name Role Phone Ewa Alejandro M.D. Primary Care Provider [phone] Encounter Details Date Type Department Care Team Description 12/24/2017 Orders Only Department of Family Philip trimble Mellitus Type Medicine, Ewa Barclay, 2 (HCC) (Primary Dx) Clinic, in [place] [address] [place] [phone] Social History Tobacco Use Types Packs/Day Years [...] do you attend confucianist or Never 2021 caodaism services? Do you [...] A1c, 9.1 (H) 4.2 - 5.6 01/22/2018 [facility] B % 11:25 AM CDT [facility] LAB Comment: Hemoglobin A1c values [...] Code Phon e Number [facility] [address] [place] [address] LAB documented in this encounter Visit Diagnoses Diagnosis Diabetes Mellitus Type 2 (HCC) - Primary documented in this encounter Care Teams Cordwood Cutter Relationship Specialty Start Date End Date Ewa Alejandro M.D. PCP - General 03/13/17 01/09/202199 [place] [phone] documented as of this encounter
--- OUTSIDE RECORDS SUMMARY | 2022-05-28 07:24 | XMS_ITS | Encounter Summary ---
:1945 Author Organization [facility] Address [address] [place] [address] Care Team Providers Name Role Phone Ewa Alejandro M.D. Primary Care Provider Reason for Visit Reason Comments Follow-up Last visit 05/02/16 Continues to have balance problems. Had MRI brain 09/17/18. Outpatient (Routine) - Closed Specialty Diagnoses / Procedures Referred By Contact Refer red To Contact Neurology Diagnoses Dizziness And Giddiness ARMAAN Alejandro [facility] Pato Mcneil [address] [place] [address] Referral ID Status Reason Start Date Expiration Date Visits V isits Requested Authorized [id number] Closed Specialty 10/20/2017 04/18/2018 1 1 Services Required Encounter Details Date Type Department Care Team Description 10/30/2017 Office Visit Department of Ewa Evans M.D. [address] [place] [address] Dizziness And Giddiness Neurology in Mari Lala M.D., M.P.H. [address] [place] [address] [phone] Social History Tobacco Use Types Packs/Day Years [...] do you attend synagogue or Never 2021 buddhist services? Do you [...] Comments Blood Pressure 128/72 10/30/2017 1:02 PM PHARMACY TECHNICIAN PER DIEM Pulse 79 10/30/2017 12:55 PM PHARMACY TECHNICIAN PER DIEM Temperature - - Respiratory Rate - - Oxygen Saturation - - Inhaled Oxygen Concentration - - Weight 111 kg (244 lb 0.8 oz) 10/30/2017 12:55 PM PHARMACY TECHNICIAN PER DIEM Height - - Body Mass Index 31.32 10/20/2017 10:36 AM PHARMACY TECHNICIAN PER DIEM documented in this encounter Consult Notes Tae Lala M.D., M.P.H. - 10/30/2017 1:00 PM CST SUBJECTIVE CHIEF COMPLAINT / REASON FOR VISIT Jonnathan oCsta is a 72 y.o. male who presents for evaluation of Follow-up (Last visit 05/02/16 Continues to have balance problems. Had MRI brain 09/17/18.). HISTORY OF PRESENT ILLNESS HPI The patient reports to me that he has had difficulty with managing his blood pressure and as result his blood pressure has been addressed at the [facility] where a clinical pharmacist started amlodipine [...] when they are having an annual related [place] green party that when he got home he [...] was 65 minutes with 40 in counseling. MACY TECHNICIAN PER DIEM documented in this encounter Plan of Treatment Not on filedocumented as of this encounter Visit Diagnoses Diagnosis Dizziness And Giddiness documented in this encounter Care Teams Garment Sorter Relationship Specialty Start Date End Date Ewa Alejandro M.D. PCP - General 03/13/17 01/09/[address] [phone] documented as of this encounter
--- OUTSIDE RECORDS SUMMARY | 2022-05-28 07:24 | XMS_ITS | Encounter Summary ---
:1945 Author Organization [facility] Address [address] [place] [address] Care Team Providers Name Role Phone Ewa Alejandro M.D. Primary Care Provider [phone] Encounter Details Date Type Department Care Team Description 04/28/2018 Hospital Encounter Department of Lea Hall es Mellitus Laboratory Medicine Ewa brunson, Type 2 (HCC) in [place] [address] [place] [phone] Social History Tobacco Use Types Packs/Day [...] do you attend mandaeism or Never 2021 jew services? Do you [...] documented as of this encounter Progress Notes Josslein Tran R.N. - 04/28/2018 8:24 AM CDT [...] Potassium, S 4.7 3.6 - 5.2 04/28/2018 [facility] mmol/L 12:03 PM [facility] [place] [facility] Sodium, S 138 135 - 145 04/28/2018 [facility] mmol/L 12:03 PM [facility] [place] Chloride, S 104 98 - 107 04/28/2018 [facility] mmol/L 12:03 PM [facility] [place] [facility] Bicarbonate, S 23 22 - 29 04/28/2018 [facility] mmol/L 12:03 PM T [facility] [place] [facility] Anion Gap 11 7 - 15 04/28/2018 [facility] 12:03 PM T [facility] [place] [facility] BUN (Blood Urea 34 (H) 8 - 24 04/28/2018 [facility] Nitrogen), S mg/dL 12:03 PM T [facility] Creatinine 1.31 0.74 - 04/28/2018 [facility] 1.35 mg/dL 12:03 PM [facility] eGFR-Non 53 (L) >=60 04/28/2018 [facility] Black/ mL/min/BSA 12:03 PM T [employer] [place] [facility] LAB Comment: ----ADDITIONAL INFORMATION---- Estimated GFR calculated using the 2009 CKD_EPI creatinine equation. eGFR-Black/ 62 >=60 mL/min/BSA 2017 12:03 PM [facility] [employer] LAB Comment: ----ADDITIONAL INFORMATION---- Estimated GFR calculated using the 2009 CKD_EPI creatinine equation. Calcium, Total, S 8.7 (L) 8.8 - 10.2 mg/dL 04/28/2018 1 2:03 PM [facility] Glucose, S 220 (H) 70 - 140 mg/dL 04/28/2018 12:03 PM [facility] Specimen Anatomical Collection Method Collection Time Receive d Time (Source) Location / / Volume Laterality Blood (Blood, 04/28/2018 8:48 AM 04/28/20 18 Venous) CDT 10:59 AM CDT Ewa Alejandro M.D. LAB BLOOD ADD-ON Performing Organization Address City/State/ZIP Code Phon e Number [facility] [address] [place] [address] LAB (ABNORMAL) Hemoglobin A1c (04/28/2018 8:48 AM CDT) P athologist Signature Hemoglobin A1c, 8.9 (H) 4.2 - 5.6 04/28/2018 [facility] B % 1:25 PM CDT [facility] Comment: Hemoglobin A1c values greater [...] e Number [facility] [place] [address] [place] [address] LAB AST (Aspartate Aminotransferase) (04/28/2018 8:48 AM CDT) [facility] gist Method Time Signature Aspartate 17 8 - 48 04/28/2018 [facility] Aminotransferase U/L 12:03 PM CDT [facility] (AST)Famely [facility] [employer] (Inspect Manager) LAB Specimen Anatomical Collection Method Collection Time Receive d Time (Source) Location / / Volume Laterality Blood (Blood, 04/28/2018 8:48 AM 04/28/20 18 Venous) CDT 10:59 AM CDT Ewa Alejandro M.D. LAB BLOOD ADD-ON Performing Organization Address City/State/ZIP Code Phon e Number [facility] [place] [address] [place] [address] LAB (ABNORMAL) Lipid Panel (04/28/2018 8:48 AM CDT) P athologist Signature Cholesterol, 193 mg/dL 04/28/2018 [facility] Total 12:03 PM CDT [facility] Comment: ----REFERENCE VALUE---- Desirable: < 200 Borderline high: 200 - 239 High: > or = 240 Triglycerides 402 (H) mg/dL 04/28/2018 2:48 PM CDT [facility] [place] [facility] Comment: ----REFERENCE VALUE---- Normal: <150 Borderline high: 150-199 High: 200-499 Very high: > or =500 Cholesterol, HDL, S 33 (L) >=40 mg/dL 04/28/2018 2:48 PM CDT [facility] Calculated LDL CANCELED mg/dL 04/28/2018 2:[address] [facility] [place] [facility] Comment: Triglyceride >400 mg/dL. Calculated LDL cholesterol is not valid. Non-HDL cholesterol may be used f or cardiovascular disease risk assessment when triglycerid es are >400 mg/dL. Result canceled by the ancillary Cholesterol, Non-HDL, 160 (H) mg/dL 04/28/2018 2:48 PM CDT [facility] AMANDA GAMBOA Comment: ----REFERENCE VALUE---- Desirable: <130 Above Desirable: 130-159 Borderline high: 160-189 High: 190-219 Very high: > or =220 Specimen Anatomical Collection Method Collection Time Receive d Time (Source) Location / / Volume Laterality Blood (Blood, 04/28/2018 8:48 AM 04/28/20 18 Venous) CDT 10:59 AM CDT Ewa Alejandro M.D. LAB BLOOD ADD-ON Performing Organization Address City/State/ZIP Code Phon e Number [facility] [address] [place] [address] LAB documented in this encounter Visit Diagnoses Diagnosis Diabetes Mellitus Type 2 (HCC) documented in this encounter Additional Health Concerns Assessment Noted Time PHQ-9 Depression Total Score: 18 04/28/2018 11:27 AM C DT documented as of this encounter Care Teams Deli/Bakery Associate Relationship Specialty Start Date End Date wEa Alejandro M.D. PCP - General 03/13/17 01/09/[address] [phone] documented as of this encounter
--- OUTSIDE RECORDS SUMMARY | 2022-05-28 07:24 | XMS_ITS | Encounter Summary ---
:1945 Author Organization [facility] Address [address] [place] [address] Care Team Providers Name Role Phone Ewa Alejandro M.D. Primary Care Provider [phone] Reason for Visit Reason Comments Follow-up review labs completed on and cystology completed on 01/19/2018 Appointment Request (Routine) - Closed Specialty Diagnoses / Procedures Referred By Contact Refer red To Contact Family Medicine Referral ID Status Reason Start Date Expiration Date Visits Requ ested Visits Authorized [id number] Closed 01/19/2018 07/18/2018 1 1 Encounter Details Date Type Department Care Team Description 01/26/2018 Office Visit Department of Family Philip trimble Mellitus Type Medicine, Ewa Barclay, 2 (HCC) (Primary Dx) Clinic, in [place] [address] [place] [phone] Social History Tobacco Use Types Packs/Day Years [...] do you attend yarsani or Never 2021 yarsani services? Do you belong to any clubs or No 10/09/2021 organizations such as yarsani groups, unions, fraE2E Networks or athletic groups, or school groups? How [...] 08/28/[address] Prasanna Bernal at the [facility]. ??? TONSILLECTOMY N/A PREVENTIVE SERVICES Social History [...] Microalbumin, Random, Urine (04/28/2018 8:49 AM CDT) [facility] Method Time Signature Microalbumin 613.6 mg/L 04/28/2018 [facility] 2:46 PM CDT [facility] Creatinine 133 mg/dL 04/28/2018 [facility] 2:46 PM CDT [facility] Albumin/Creatinin 461 (H) <17 mg/g 04/28/2018 [facility] e Ratio 2:46 PM CDT [facility] Specimen Anatomical Collection Method Collection Time Receive d Time (Source) Location / / Volume Laterality Urine (Urine, 04/28/2018 8:49 AM 04/28/20 18 Clean Catch) CDT 10:59 AM CDT Ewa Alejandro M.D. LAB URINE ORDERABLES Performing Organization Address City/State/ZIP Code Phon e Number [facility] [address] [place] [address] LAB (ABNORMAL) BMP (Basic Metabolic Panel) (04/28/2018 8:48 AM [facility]) P athologist Signature Potassium, S 4.7 3.6 - 5.2 04/28/2018 [facility] mmol/L 12:03 PM [facility] [place] [facility] Sodium, S 138 135 - 145 04/28/2018 [facility] mmol/L 12:03 PM [facility] [place] [facility] Chloride, S 104 98 - 107 04/28/2018 [facility] mmol/L 12:03 PM [facility] [place] [facility] Bicarbonate, S 23 22 - 29 04/28/2018 [facility] mmol/L 12:03 PM [facility] [place] [facility] Anion Gap 11 7 - 15 04/28/2018 [facility] 12:03 PM [facility] BUN (Blood Urea 34 (H) 8 - 24 04/28/2018 [facility] Nitrogen), S mg/dL 12:03 PM [facility] [place] [facility] Creatinine 1.31 0.74 - 04/28/2018 [facility] 1.35 mg/dL 12:03 PM [facility] eGFR-Non 53 (L) >=60 04/28/2018 [facility] Black/ mL/min/BSA 12:03 PM [facility] Comment: ----ADDITIONAL INFORMATION---- Estimated GFR calculated using the 2009 CKD_EPI creatinine equation. eGFR-Black/ 62 >=60 mL/min/BSA 2017 12:03 PM [facility] [place] [facility] Comment: ----ADDITIONAL INFORMATION---- Estimated GFR calculated using the 2009 CKD_EPI creatinine equation. Calcium, Total, S 8.7 (L) 8.8 - 10.2 mg/dL 04/28/2018 1 2:03 PM [facility] [place] [facility] Glucose, S 220 (H) 70 - 140 mg/dL 04/28/2018 12:03 PM [facility] [place] Specimen Anatomical Collection Method Collection Time Receive d Time (Source) Location / / Volume Laterality Blood (Blood, 04/28/2018 8:48 AM 04/28/20 18 Venous) CDT 10:59 AM CDT Authorizing Provider Result Deloris Alejandro M.D. LAB BLOOD ADD-ON Performing Organization Address City/[facility] [address]/ZIP Code Phon e Number [facility] [address] [place] [address] LAB (ABNORMAL) Hemoglobin A1c (04/28/2018 8:48 AM CDT) P athologist Signature Hemoglobin A1c, 8.9 (H) 4.2 - 5.6 04/28/2018 [facility] B % 1:25 PM CDT [facility] Comment: Hemoglobin A1c values [...] Performing Organization Address City/[facility] [address]/ZIP Code Phon e Number [facility] [address], [place] [address] LAB AST (Aspartate Aminotransferase) (04/28/2018 8:48 AM CDT) Patholo gist Method Time Signature Aspartate 17 8 - 48 04/28/2018 [facility] Aminotransferase U/L 12:03 PM CDT [employer] (AST), [facility] LAB Specimen Anatomical Collection Method Collection Time Receive d Time (Source) Location / / Volume Laterality Blood (Blood, 04/28/2018 8:48 AM 04/28/20 18 Venous) CDT 10:59 AM CDT Ewa Alejandro M.D. LAB BLOOD ADD-ON Performing Organization Address City/State/ZIP Code Phon e Number [facility] [place] [address] [place] [address] LAB (ABNORMAL) Lipid Panel (04/28/2018 8:48 AM CDT) P athologist Signature Cholesterol, 193 mg/dL 04/28/2018 [facility] Total 12:03 PM CDT [facility] [place] [facility] Comment: ----REFERENCE VALUE---- Desirable: < 200 Borderline high: 200 - 239 High: > or = 240 Triglycerides 402 (H) mg/dL 04/28/2018 2:48 PM CDT [facility] [place] [facility] Comment: ----REFERENCE VALUE---- Normal: <150 Borderline high: 150-199 High: 200-499 Very high: > or =500 Cholesterol, HDL, S 33 (L) >=40 mg/dL 04/28/2018 2:48 PM CDT [facility] [place] [facility] Calculated LDL CANCELED mg/dL 04/28/2018 2:48 PM CDT [facility] [place] [facility] Comment: Triglyceride >400 mg/dL. Calculated LDL cholesterol is not valid. Non-HDL cholesterol may be used f or cardiovascular disease risk assessment when triglycerid es are >400 mg/dL. Result canceled by the ancillary Cholesterol, Non-HDL, 160 (H) mg/dL 04/28/2018 2:48 PM CDT [facility] NIKOLAS [place] Comment: ----REFERENCE VALUE---- [...] Phon e Number [facility] [address], [place] [address] LAB documented in this encounter Visit Diagnoses Diagnosis Diabetes Mellitus Type 2 (HCC) - Primary documented in this encounter Care Teams Speed Operator Relationship Specialty Start Date End Date Ewa Alejandro M.D. PCP - General 03/13/17 01/09/[address] [place] [address] documented as of this encounter
--- OUTSIDE RECORDS SUMMARY | 2022-05-28 07:24 | XMS_ITS | Encounter Summary ---
:1945 Author Organization [facility] Address [address] [place] [address] Care Team Providers Name Role Phone Ewa Alejandro M.D. Primary Care Provider [phone] Reason for Referral Outpatient (Routine) - Closed Specialty Diagnoses / Procedures Referred By Contact Refer red To Contact Diagnoses Cancer Bladder Family History Prasanna Bernal M.D. [facility] Procedures Cystoscopy (specific provider) [address] [place] [phone] Referral ID Status Reason Start Date Expiration Date Visits Requ ested Visits Authorized [id number] Closed 01/15/2018 07/14/2018 1 1 Reason for Visit Outpatient (Routine) - Closed Specialty Diagnoses / Procedures Referred By Contact Refer red To Contact Diagnoses Cancer Bladder Family History Prasanna Bernal M.D. [facility] Procedures Cystoscopy (specific provider) [address] [place] [phone] Referral ID Status Reason Start Date Expiration Date Visits Requ ested Visits Authorized [id number] Closed 09/18/2017 03/17/2018 1 1 Encounter Details Date Type Department Care Team Description 01/15/2018 Procedure visit Department of Urology Prasanna Bernal, Cancer Bladder Family in [place] History [place] [address] [place] [phone] Social History Tobacco Use Types Packs/Day [...] do you attend judaism or Never 2021 sabianism services? Do you [...] Priority Date/Time Associated Diagnosis Comme nts CYTOLOGY NON-ENTRY LEVEL FINANCE Routine 01/15/2018 3:24 PM Cancer Bladder Res ults for this CDT Family History procedure are in the results section. documented in this encounter Results Pathology Non-ENTRY LEVEL FINANCE Cytology (01/15/2018 3:24 PM CDT) Component Value Ref Test Analysis Performed At [facility] Range Method Time Signature Gross Description Received 100 01/19/2018 [facility] ml of yellow 2:07 PM [facility] Collection clean catch 01/19/2018 [facility] Procedure 2:07 PM T [facility] CYTOLOGY Fixative none 01/19/2018 [facility] 2:07 PM [facility] CYTOLOGY Source A. Urine, 01/19/2018 [facility] voided 2:07 PM [facility] CYTOLOGY Clinical History bladder 01/19/2018 [facility] cancer 2:07 PM [facility] CYTOLOGY Report Brady Goodrich MD 01/19/2018 [facility] electronically I verify that I have examined all relevant slides/ma terials 2:07 PM [facility] signed by for the specimen(s) and rendered or confirmed the [facility] CYTOLOGY 01/19/2018 [facility] 2:07 PM T [facility] CYTOLOGY Interpretation A. Urine, voided (cytospin): Negative for High-Grade 01/19/2018 [facility] Urothelial Carcinoma. 2:07 PM CDT [facility] CYTOLOGY Comment: Interpreted by: Brady Goodrich [...] Phon e Number [facility] [address] [place] [address] CYTOLOGY documented in this encounter Visit Diagnoses Diagnosis Cancer Bladder Family History documented in this encounter Care Teams Hand Tufter Relationship Specialty Start Date End Date Ewa Alejandro M.D. PCP - General 03/13/17 01/09/[address] [phone] documented as of this encounter
--- OUTSIDE RECORDS SUMMARY | 2022-05-28 07:24 | XMS_ITS | Encounter Summary ---
:[address] [facility] Address [address] [place] [address] Care Team Providers Name Role Phone Ewa Alejandro M.D. Primary Care Provider [phone] Encounter Details Date Type Department Care Team Description 02/17/2018 Hospital Encounter Department of Lea french Renal Laboratory Medicine Ewa brunson in [place], M.D. [place] [address] [place] [phone] Social History Tobacco Use Types Packs/Day [...] do you attend worship or Never 2021 yazidi services? Do you [...] (02/17/2018 10:41 AM CDT) [facility] Potassium, S 5.0 3.6 - 5.2 02/17/2018 [facility] mmol/L 1:45 PM [facility] [place] [facility] Sodium, S 134 (L) 135 - 145 02/17/2018 [facility] mmol/L 1:45 PM [facility] [place] Chloride, S 98 98 - 107 02/17/2018 [facility] mmol/L 1:45 PM [facility] [place] [facility] Bicarbonate, S 21 (L) 22 - 29 02/17/2018 [facility] mmol/L 1:45 PM [facility] [place] Anion Gap 15 7 - 15 02/17/2018 [facility] 1:45 PM [facility] [place] BUN (Blood Urea 69 (H) 8 - 24 02/17/2018 [facility] Nitrogen), S mg/dL 1:45 PM [facility] [place] [facility] Creatinine 2.22 (H) 0.74 - 02/17/2018 [facility] 1.35 mg/dL 1:45 PM [facility] [place] [facility] eGFR-Non 28 (L) >=60 02/17/2018 [facility] Black/ mL/min/BSA 1:45 PM [facility] [place] [facility] Comment: ----ADDITIONAL INFORMATION---- Estimated GFR calculated using the 2009 CKD_EPI creatinine equation. eGFR-Black/ 33 (L) >=60 mL/min/BSA 02/17/2018 1:45 [facility] [place] [facility] Comment: ----ADDITIONAL INFORMATION---- Estimated GFR calculated using the 2009 CKD_EPI creatinine equation. Calcium, Total, S 9.3 8.8 - 10.2 mg/dL 02/17/2018 1:45 PM [facility] [place] [email or web address] LAB Glucose, S 336 (H) 70 - 140 mg/dL 02/17/2018 1:45 PM [facility] [place] [facility] Specimen Anatomical Collection Method Collection Time Receive d Time (Source) Location / / Volume Laterality Blood (Blood, 02/17/2018 10:41 02/17/2018 Venous) AM CDT 12:54 PM CDT Ewa Alejandro M.D. LAB BLOOD ADD-ON Performing Organization Address City/State/ZIP Code Phon e Number [facility] [address] [place] [address] LAB documented in this encounter Visit Diagnoses Diagnosis Insufficiency Renal documented in this encounter Care Teams Tile Burner Relationship Specialty Start Date End Date Ewa Alejandro M.D. PCP - General 03/13/17 01/09/[address] [place] [address] documented as of this encounter
--- OUTSIDE RECORDS SUMMARY | 2022-05-28 07:24 | XMS_ITS | Encounter Summary ---
:1945 Author Organization [facility] Address [address] [place] [address] Care Team Providers Name Role Phone Ewa Alejandro M.D. Primary Care Provider [phone] Encounter Details Date Type Department Care Team Description 04/21/2018 Nurse Triage Department of [facility], Alysha Duque Medicine, [facility], R.N. in [place], [place] [address] [place] [address] Social History Tobacco Use Types Packs/Day Years [...] do you attend yazidism or Never 2021 oriental orthodox services? Do [...] on filedocumented in this encounter Care Teams Jowl Trimmer Relationship Specialty Start Date End Date Ewa Alejandro M.D. PCP - General 03/13/17 01/09/[address] [phone] documented as of this encounter
--- OUTSIDE RECORDS SUMMARY | 2022-05-28 07:24 | XMS_ITS | Encounter Summary ---
:1945 Author Organization [facility] Address [address] [place] [address] Care Team Providers Name Role Phone Ewa Alejandro M.D. Primary Care Provider [phone] Encounter Details Date Type Department Care Team Description 01/22/2018 Hospital Encounter Department of Lea Hall es Mellitus Laboratory Medicine Ewa brunson, Type 2 (HCC) in [place] [address] [place] [phone] Social History Tobacco Use Types Packs/Day [...] do you attend catholic or Never 2021 tenriism services? Do [...] 9.1 (H) 4.2 - 5.6 01/22/2018 [facility] B % 11:25 AM CDT [facility] LAB Comment: Hemoglobin A1c values greater [...] Code Phon e Number [facility] [address] [place] [address] LAB documented in this encounter Visit Diagnoses Diagnosis Diabetes Mellitus Type 2 (HCC) documented in this encounter Care Teams Floor Runner Relationship Specialty Start Date End Date Ewa Alejandro M.D. PCP - General 03/13/17 01/09/[address] [place] [phone] documented as of this encounter
--- OUTSIDE RECORDS SUMMARY | 2022-05-28 07:24 | XMS_ITS | Encounter Summary ---
:1945 Author Organization [facility] Address [address] [place] [address] Care Team Providers Name Role Phone Ewa Alejandro M.D. Primary Care Provider [phone] Reason for Visit Reason Comments Anxiety [facility] er vis it on 04/20/2018 with final dx of depression and anxiety Depression Appointment Request (Routine) - Closed Specialty Diagnoses / Procedures Referred By Contact Refer red To Contact Family Medicine Referral ID Status Reason Start Date Expiration Date Visits Requ ested Visits Authorized [id number] Closed 04/22/2018 04/22/2019 1 Encounter Details Date Type Department Care Team Description 04/28/2018 Office Visit Department of Family Philip trimble Mellitus Type 2 (HCC) (Primary Dx); Medicine, Ewa Barclay, Anxiety; Clinic, in [place] Depressive Disorder [place] [address] [facility] [address] [phone] Social History Tobacco Use Types Packs/Day Years [...] do you attend yazidism or Never 2021 rastafarian services? Do you belong to any clubs or No 10/09/2021 organizations such as yazidism groups, unions, fraM87 or athletic groups, or school groups? How [...] Complaint Patient presents with ??? Anxiety [facility] er visit on 04/20/2018 with final [...] disorder with anxiety. He was started on Yepsqyg72 mg once daily. He was also given [...] mouth daily. ??? PEN NEEDLE, DIABETIC MISC Yain Fine 30 disposable needles. For use with [...] 08/28/[address] Prasanna Bernal at the [facility]. ??? TONSILLECTOMY N/A PREVENTIVE SERVICES Social [...] noted on exposed skin. DIAGNOSTICS Records from [facility] Emergency Department are reviewed. ASSESSMENT / [...] as of this encounter Care Teams Community Living Coach Relationship Specialty Start Date End Date Ewa Alejandro M.D. PCP - General 03/13/17 01/09/[address] [place] [phone] documented as of this encounter
--- OUTSIDE RECORDS SUMMARY | 2022-05-28 07:24 | XMS_ITS | Encounter Summary ---
:1945 Author Organization [facility] Address [address] [place] [address] Care Team Providers Name Role Phone Ewa Alejandro M.D. Primary Care Provider Encounter Details Date Type Department Care Team Description 02/18/2018 Orders Only Department of Family Sunny Martinez De hydration (Primary Medicine, [place] [facility] Dx) Clinic, in [address] [address] [place], [place] [phone] (Work) [phone] Social History Tobacco Use Types Packs/Day Years [...] do you attend presybeterian or Never 2021 restoration services? Do you [...] Potassium, S 5.0 3.6 - 5.2 02/19/2018 [facility] mmol/L 3:28 PM [facility] Sodium, S 143 135 - 145 02/19/2018 [facility] mmol/L 3:28 PM [facility] Chloride, S 105 98 - 107 02/19/2018 [facility] mmol/L 3:28 PM [facility] Bicarbonate, S 22 22 - 29 02/19/2018 [facility] mmol/L 1:55 PM [facility] [employer] [facility] Anion Gap 16 (H) 7 - 15 02/19/2018 [facility] 3:28 PM [facility] BUN (Blood Urea 43 (H) 8 - 24 02/19/2018 [facility] Nitrogen), S mg/dL 1:55 PM [facility] [employer] [facility] Creatinine 1.49 (H) 0.74 - 02/19/2018 [facility] 1.35 mg/dL 1:55 PM [facility] [employer] [facility] eGFR-Non 46 (L) >=60 02/19/2018 [facility] Black/ mL/min/BSA 1:55 PM [facility] [employer] [facility] Comment: ----ADDITIONAL INFORMATION---- Estimated GFR calculated using the 2009 CKD_EPI creatinine equation. eGFR-Black/ 53 (L) >=60 mL/min/BSA 02/19/2018 1:55 [facility] Eritrean PM CDT [facility] [place] [facility] Comment: ----ADDITIONAL INFORMATION---- Estimated GFR calculated using the 2009 CKD_EPI creatinine equation. Calcium, Total, S 9.3 8.8 - 10.2 mg/dL 02/19/2018 1:55 PM [facility] [place] [facility] Glucose, S 292 (H) 70 - 140 mg/dL 02/19/2018 1:55 PM [facility] [place] [facility] Specimen Anatomical Collection Method Collection Time Receive d Time (Source) Location / / Volume Laterality Blood (Blood, 02/19/2018 9:34 AM 02/20/20 18 Venous) CDT 11:18 AM CDT Sunny Martinez P.A.-C. LAB BLOOD ADD-ON Performing Organization Address City/State/ZIP Code Phon e Number [facility] [address] [place] [address] [facility]- [address] [facility] documented in this encounter Visit Diagnoses Diagnosis Dehydration - Primary documented in this encounter Care Teams Enhanced Environmental Operator Relationship Specialty Start Date End Date Ewa Alejandro M.D. PCP - General 03/13/17 01/09/[address] [phone] documented as of this encounter
--- OUTSIDE RECORDS SUMMARY | 2022-05-28 07:24 | XMS_ITS | Encounter Summary ---
:1945 Author Organization [facility] Address [address] [place] [address] Care Team Providers Name Role Phone Ewa Alejandro M.D. Primary Care Provider [phone] Encounter Details Date Type Department Care Team Description 02/20/2018 Clinical Communication Department of Anjana Boateng, Medicine, [facility], [facility], [address] [place], [place] 300 [facility] [address] [place], [place] [phone] (Work) [phone] Social History Tobacco Use Types Packs/Day Years [...] do you attend hindu or Never 2021 nondenominational services? Do you [...] AM CDT Prescription for lomotil faxed to [facility]. Unable to contact patient to make aware mailbox full documented in this encounter Plan of Treatment Not on filedocumented as of this encounter Visit Diagnoses Not on filedocumented in this encounter Care Teams Eligibility Services Representative Relationship Specialty Start Date End Date Ewa Alejandro M.D. PCP - General 03/13/17 01/09/[address] [phone] documented as of this encounter
--- OUTSIDE RECORDS SUMMARY | 2022-05-28 07:24 | XMS_ITS | Encounter Summary ---
:1945 Author Organization [facility] Address [address] [place] [address] Care Team Providers Name Role Phone Ewa Alejandro M.D. Primary Care Provider Encounter Details Date Type Department Care Team Description 02/17/2018 Hospital Encounter Department of Laboratory Kirill Nicholas Medicine in [place] James Judy, M .D. [place] [address] [place] [phone] Social History Tobacco Use Types Packs/Day Years [...] do you attend restorationism or Never 2021 methodist services? Do you [...] on filedocumented in this encounter Care Teams Safety Administrator Relationship Specialty Start Date End Date Ewa Alejandro M.D. PCP - General 03/13/17 01/09/[address] [phone] documented as of this encounter
--- OUTSIDE RECORDS SUMMARY | 2022-05-28 07:25 | XMS_ITS | Encounter Summary ---
:1945 Author Organization [facility] Address [address] [place] [address] Care Team Providers Name Role Phone Ewa Alejandro M.D. Primary Care Provider [phone] Encounter Details Date Type Department Care Team Description 05/08/2017 Hospital Encounter HX [facility] Ailyn Bernal M.D. [address] [place] [address] (Wo rk) Social History Tobacco [...] do you attend yazdanism or Never 2021 synagogue services? Do you [...] AM Source: [facility] [employer] Document Id: [id number] documented in this encounter Miscellaneous Notes Miscellaneous [...] FUROC Result Sum-Randolph Negative 05/08/2017 09:20 FUROC Result-Babbitt See Comment 05/08/2017 09:20 FUROC Interp-Randolph See Comment 05/08/2017 09:20 FUROC Reason for Ref-Randolph See Comment 05/08/2017 09:20 FUROC Spec-Randolph Varies 05/08/2017 09:20 FUROC Source-[facility] Urine, NOS 05/08/2017 09:20 FUROC Released By-Babbitt See Comment Source: [facility] [employer] Document Id: [id number] Miscellaneous - Raegan Toney APRN, RMauroN. - [...] Result Name 05/09/2017 11:58 Document - DOC Non-ADMISSIONS CLERK Cytology Source: [facility] [employer] Document Id: [id number] Miscellaneous - Yu Thomas, L.P.N. - 05/08/2017 9:15 AM CDT Adult Bail Bondsman Intake/History Adult Bail Bondsman Intake/History Entered On: 05/08/2017 9:19 CDT Performed [...] Pressure Cuff Size : Regular [facility] - 05/08/2017 9:15 CDT General Info Information Given By : Patient Preferred Communication Mode : Verbal Languages : Kosovan Is Patient Female and 13-50 no hysterectomy : No [facility] - 05/08/2017 9:15 CDT Subjective Pain Symptoms : No [facility] - 05/08/2017 9:15 CDT Dependent Habits Exposure to Tobacco Smoke : Other: quit in 1982 Smoking Status : Former smoker Tobacco 2A : Yes Tobacco Use/Currently Using : No Tobacco Use/Last 30 Days : No Tobacco Use/Last 12 months : No Tobacco Last Use/Year : 1982 Alcohol Use : No [facility] 05/08/2017 9:15 CDT Caffeine Use Grid Caffeine Use : Current Type : Chocolate, Coffee, Soft drinks Frequency : Daily [facility] - 05/08/2017 9:15 CDT Recreational Drug Use Grid Drug Use : None [facility] 05/08/2017 9:15 CDT [facility] Document Id: [id number]!34 documented in this encounter Plan of Treatment Not on filedocumented as of this encounter Procedures Procedure Name Priority Date/Time Associated Comments Diagnosis UROVYSION (R) FOR Routine 05/08/2017 9:20 AM Resu lts for this BLADDER CANCER CDT procedure are in the results section. ZZPATHOLOGY NON-ADMISSIONS CLERK Routine 05/08/2017 8:52 AM Re sults for this CYTOLOGY CDT procedure are i n the results section. documented in this encounter Results UroVysion for Detection of Bladder Cancer, Urine (05/08/2017 9:20 AM CDT) [employer] Method Time Signature HXFUROC Result Negative POWERCHART [facility] HXFUROC See Comment POWERCHART Result-Babbitt Comment: RESULT: No evidence of urotheli al [...] This test has been modified from the morris ufacturer's instructions. Its performance characteri stics were determined by [facility] in a manner co nsistent with CLIA requirements. This test has not been fernando ared or approved by the U.S. Food and Drug Administration. HX FUROC Reason for Ref See Comment GOLD CANDELARIO Comment: RESULT: Evaluate for urothelial carcinoma. HXFUROC Spec-Babbitt Varies POWERCHART HXFUROC Source-[facility] Urine, NOS POWERCHAR T HXFUROC Released By-Babbitt See Comment CHRISTIN JEFFRIES Comment: RESULT: Dhiraj Hammer M.D. Test Performed by: [facility] - [address] [address] Specimen (Source) Anatomical Collection Method Collection Time Re ceived Time Location / / Volume Laterality Urine 05/08/2017 9:20 AM CDT Ailyn Bernal M.D. LAB GENETIC TESTING Performing Organization Address City/State/ZIP Code Phon e Number POWERCHART POWERCHART NA [facility] Non-Social Media Senior Associate Cytology (05/08/2017 8:52 AM CDT) Specimen (Source) Anatomical Collection Method Collection Time Re ceived Time Location / / Volume Laterality 05/08/2017 8:52 AM CDT Narrative [facility] - 05/09/2017 11:58 AM CDT [facility] ([place], [place]) [address] [place], [place] ??[address] Patient Name: BETH COSTA Patient ID #: [id number] Collected: 05/08/2017 Address: [facility]/Zip: [address] [place], [place] ??[id number] Received: Reported: 05/09/2017 05/09/2017 Soc. Sec. #: ?/Age/Sex 1945 (Age: 71) ??M Physician(s): Juana BERNAL MD Copy To: ? [facility] ?? [id number] [address] [place] [address]. [facility], ??[place] ??[address] CYTOPATHOLOGY NON-ADMISSIONS CLERK REPORT FINAL CYTOLOGIC DIAGNOSIS Urine: NEGATIVE FOR [...] of this encounter Care Teams Private Duty Aide Relationship Specialty Start Date End Date Ewa Alejandro M.D. PCP - General 03/13/17 01/09/[address] [phone] documented as of this encounter
--- OUTSIDE RECORDS SUMMARY | 2022-05-28 07:25 | XMS_ITS | Encounter Summary ---
:1945 Author Organization [facility] Address [address] [place] [address] Care Team Providers Name Role Phone Ewa Alejandro M.D. Primary Care Provider [phone] Reason for Referral Outpatient (Routine) - Closed Specialty Diagnoses / Procedures Referred By Contact Refer red To Contact Diagnoses Cancer Bladder Family History Prasanna Bernal M.D. 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 Do you [...] Comments Blood Pressure 124/70 09/18/2017 10:13 AM PAD TUFTER Pulse 84 09/18/2017 10:13 AM PAD TUFTER Temperature 36.5 ??C (97.7 ??F) 09/18/2017 10:13 AM PAD TUFTER Respiratory Rate - - Oxygen Saturation - [...] by: Prasanna Bernal M.D. 09/18/17 11:19 AM TUFTER documented in this encounter Plan of Treatment Scheduled Orders Name Type Priority Associated Diagnoses Order S chedule Cystoscopy (specific Procedure Routine Cancer Bladder Famil y Expected: provider) History 01/15/2018 (Approximate), Expires: 2019 documented as of this encounter Procedures Procedure Name Priority Date/Time Associated Diagnosis Comme nts CYTOLOGY NON-JOB TRAINING SPECIALIST Routine 09/18/2017 11:01 AM Cancer Bladder Re sults for this PAD TUFTER Family History procedure are in the results section. UROVYSION (R) FOR Routine 09/18/2017 11:01 AM Cancer Bladder R esults for this BLADDER CANCER PAD TUFTER Family History procedure a re in the results section. documented in this encounter Results UroVysion for Detection of Bladder Cancer, Urine (09/18/2017 11:01 AM [facility]) Component Value Ref Test Analysis Performed At [facility] Range Method Time Signature Result Summary Negative 09/30/2017 [facility] 8:56 AM LABORATORIES - [facility] Karyotype No evidence of 09/30/2017 [facility] urothelial 8:56 AM LABORATORIES - carcinoma. [facility] Reason for Evaluate for 09/30/2017 [facility] referral urothelial 8:56 AM LABORATORIES - carcinoma. [facility] Specimen Varies 09/30/2017 [facility] 8:56 AM [facility]ATOR[facility] - [facility] Source Urine, NOS 09/30/2017 [facility] 8:56 AM [facility]ORATORIES - [facility] Released By Miguelito Machuca 09/30/2017 [facility] Pato Crowell, 8:56 AM LABORATORIES - Ph.D. [facility] Interpretation This test result does not rule out the possibility t hat the 09/30/2017 [facility] patient may have a low-grade (i.e. grade 1 or 2) 8:56 AM LABORATORIES - non-invasive papillary urothelial carcinoma. Some patients [facility] with low grade non-invasive papillary urothelial carcinoma CAMPUS do not have abnormalities with this FISH test. Comment: Interpreted by: Miguelito Crowell M.D., Ph.D., Signed on 09/30/2017 at 08:56 ----ADDITIONAL INFORMATION---- This test has been modified from the [place] ufacturer's instructions. Its performance characteristics were determi [...] (Urine, 09/18/2017 11:01 7 8:35 Voided) AM PAD TUFTER AM PAD TUFTER Narrative This result has an attachment that is no t available. Prasanna Bernal M.D. LAB GENETIC TESTING Performing Organization Address City/State/ZIP Code Phon e Number [facility] LABORATORIES - [address] [place], [place] [address] [facility] Pathology Non-JOB TRAINING SPECIALIST Cytology (09/18/2017 11:01 AM PAD TUFTER) Component Value Ref Test Analysis Performed At [facility] gist Range Method Time Signature Gross Description Received 20 09/19/2017 [facility] IC ml of yellow 3:[address] [facility] alcohol fixed SYSTEM- [facility] . [place] CYTOLOGY Collection CYTNG 09/19/2017 [facility] Procedure 3:31 PM [facility] Fixative 50% reagent 09/19/2017 [facility] alcohol 3:31 PM [facility] Source A. Urine, 09/19/2017 [facility] Midstream, 3:[address] [facility] voided [facility] Clinical History Cancer 09/19/2017 [facility] Bladder 3:31 PM [facility] CYTOLOGY Report Jose Khan MD 09/19/2017 [facility] electronically I verify that I have examined all relevant slides/ma terials 3:[address] [facility] signed by for the specimen(s) and rendered or confirmed the [facility] CYTOLOGY 09/19/2017 [facility] 3:31 PM [facility] Interpretation A. Urine, Midstream, voided (cytospin): Negative for 09/19/2017 [facility] High-Grade Urothelial Carcinoma. 3:31 PM [facility] Comment: Interpreted by: Jose lord MD, Signed on 09/19/2017 at 15:31 Specimen Anatomical Collection Method Collection Time Receive d Time (Source) Location / / Volume Laterality Varies 09/18/2017 11:01 09/19/2017 7:12 AM PAD TUFTER AM PAD TUFTER Narrative This result has an attachment that is no t available. Prasanna Bernal M.D. LAB SURG PATH ORDERABLES Performing Organization Address City/[facility]/ZIP Code Phon e Number [facility]- [address] [place] [address] [place] [facility] [address] [place] [address], [facility] documented in this encounter Visit Diagnoses Diagnosis 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 (HCC) - Primary Cancer Bladder Family History documented in this encounter Care Teams Web Content Coordinator Relationship Specialty Start Date End Date Ewa Alejandro M.D. PCP - General 03/13/17 01/09/20 [address] [place] [phone] documented as of this encounter
--- OUTSIDE RECORDS SUMMARY | 2022-05-28 07:25 | XMS_ITS | Encounter Summary ---
:1945 Author Organization [facility] Address [address] [place] [address] Care Team Providers Name Role Phone Ewa Alejandro M.D. Primary Care Provider Encounter Details Date Type Department Care Team Description 09/17/2017 Hospital Encounter Department of Lea Gonsalez ent Ischemic Laboratory Medicine Ewa brunson Attack in [place] [address] [place] [phone] Social History Tobacco Use Types Packs/Day Years [...] do you attend islam or Never 2021 anabaptist services? Do you [...] Transient Ischemic Results for this EGFR, S/P SKILLED NURSING FACILITY COUNSELOR Attack procedure are i n the results section. documented in this encounter Results Creatinine with Estimated GFR (MDRD) (09/17/2017 8:50 AM SKILLED NURSING FACILITY COUNSELOR) P athologist Signature Creatinine 1.01 0.74 - 09/17/2017 [facility] 1.35 mg/dL 10:12 AM [facility] [employer] [facility] [place] [facility] eGFR 73 >=60 09/17/2017 [facility] Non-Black/Afric mL/min/BSA 10:12 AM [facility] an [place] [facility] Comment: ----ADDITIONAL INFORMATION---- Estimated GFR calculated using the 2009 CKD_EPI creatinine equation. eGFR Black/ 84 >=60 mL/min/BSA 09/17/2017 10:1 2 AM [facility] [employer] [facility] [place] [facility] Comment: ----ADDITIONAL INFORMATION---- Estimated GFR calculated using the 2009 CKD_EPI creatinine equation. Specimen Anatomical Collection Method Collection Time Receive d Time (Source) Location / / Volume Laterality Blood (Blood, 09/17/2017 8:50 AM 09/17/20 8:56 Venous) SKILLED NURSING FACILITY COUNSELOR AM SKILLED NURSING FACILITY COUNSELOR Ewa Alejandro M.D. LAB BLOOD ADD-ON Performing Organization Address City/State/ZIP Code Phon e Number [facility] [address] [place] [address] LAB documented in this encounter Visit Diagnoses Diagnosis Transient Ischemic Attack documented in this encounter Care Teams Human Relations Professor Relationship Specialty Start Date End Date Ewa Alejandro M.D. PCP - General 03/13/17 01/09/202199 [address] [phone] documented as of this encounter
--- OUTSIDE RECORDS SUMMARY | 2022-05-28 07:25 | XMS_ITS | Encounter Summary ---
:1945 Author Organization [facility] Address [address] [place] [address] Care Team Providers Name Role Phone Unavailable Primary Care Provider Unavailable Encounter Details Date Type Department Care Team Description 02/27/2017 Hospital Encounter HX [facility] Ewa Grier M.D. [address] [place], [place] [phone] (Wo rk) Social History [...] do you attend yarsanism or Never 2021 mormonism services? Do you [...] Comment: Biotin has been identified by the [facility] as a potential interfering substance. [...] AST (Aspartate Aminotransferase) (02/27/2017 7:47 AM CDT) [facility] gist Method Time Signature Aspartate 23 8 [...]
--- OUTSIDE RECORDS SUMMARY | 2022-05-28 07:25 | XMS_ITS | Encounter Summary ---
:1945 Author Organization [facility] Address [address] [place] [address] Care Team Providers Name Role Phone Unavailable Primary Care Provider Unavailable Encounter Details Date Type Department Care Team Description 02/27/2017 Hospital Encounter [facility]X [facility] Chase Luevano M.D. 0 [place], [place] [phone] (Wo rk) [...] Result Name 02/28/2017 13:03 Document - DOC Non-SUPERVISOR TRANSCRIBING OPERATORS Cytology Source: [facility] POWERCHART Document Id: [id number] Miscellaneous - Jacquie Hamilton, L.P.N. - 02/26/2017 9:42 AM CDT request for labs Document Contains Addenda Addendum by ANIBAL GOLD on February 27, 2017 07:33:03 CDT This is done. Addendum by JACQUIE HAMILTON LPN on February 26, 2017 17:19:40 CDT From: JACQUIE HAMILTON LPN ([facility] Nurse) To: [facility] [employer] [employer]; Sent: 02/26/2017 17:19:40 CDT ! Subject: FW: request for labs Addendum by PIERO ROJAS MD on February 26, 2017 17:17:25 CDT From: PIERO ROJAS MD To: [facility] Nurse; Sent: 02/26/2017 17:17:25 CDT Subject: RE: request for labs I did order fasting labs From: JACQUIE HAMILTON LPN ([facility] Nurse) To: PIERO ROJAS MD; Sent: 02/26/2017 09:42:06 CDT ! Subject: request for labs Spoke with: ( _x ) Patient ( _ ) Parent ( _ ) Spouse ( _ ) Child ( ) Other: _ Call back telephone number: [phone]_ Reason for Call: -_request for labs Chief [...] mail (if applicable) Source/Reference used (if applicable): field organizer lynn_ OK to leave message on voice mail? yes_ OK to send message via patient portal? no_ Patient told to expect return call: ( x_ ) today ( _ ) tomorrow ( _ ) next work day Callers preferred language for Healthcare discussion: english_ Was an technical sme used for this call? _no Other ( --_ ) Source: [facility] [employer] Document Id: [id number] documented in this encounter Plan of Treatment Not on filedocumented as of this encounter Procedures Procedure Name Priority Date/Time Associated Comments Diagnosis ZZPATHOLOGY NON-SUPERVISOR TRANSCRIBING OPERATORS Routine 02/27/2017 9:09 AM Re sults for this CYTOLOGY CDT procedure are i n the results section. documented in this encounter Results ZZPATHOLOGY NON-SUPERVISOR TRANSCRIBING OPERATORS CYTOLOGY (02/27/2017 9:09 AM CDT) Specimen (Source) Anatomical Collection Method Collection Time Re ceived Time Location / / Volume Laterality 02/27/2017 9:09 AM CDT Narrative LCM LAB - 02/28/2017 1:03 PM CDT [facility] [place] [address] [place] [address] ??[phone] Patient Name: BETH COSTA Patient ID #: [id number] Collected: 02/27/2017 Address: [facility]/State/Zip: [address] [place], [place] ??[id number] Received: Reported: 02/28/2017 02/28/2017 Soc. Sec. #: ?/Age/Sex 1 (Age: 71) ??M Physician(s): Juana LUEVANO MD Copy To: ? [facility] ??[id number] [address] [place] [address], ??[place] ??[id number] CYTOPATHOLOGY NON-SUPERVISOR TRANSCRIBING OPERATORS REPORT FINAL CYTOLOGIC DIAGNOSIS Urine-VOIDED: NEGATIVE FOR HIGH-GRADE UROTHELIAL CARCINOMA SATISFACTORY SPECIMEN FOR EVALUATION. Electronically Signed By mpg/02/28/[address] [facility] CT(ASCP) SPECIMEN(S) RECEIVED: Urine-VOIDED CLINICAL HISTORY: [...]
--- OUTSIDE RECORDS SUMMARY | 2022-05-28 07:25 | XMS_ITS | Encounter Summary ---
:1945 Author Organization [facility] Address [address] [place] [address] Care Team Providers Name Role Phone Ewa Alejandro M.D. Primary Care Provider [phone] Encounter Details Date Type Department Care Team Description 07/04/2017 Hospital Encounter [facility]X [facility] Ewa Grier M.D. [address] [place], [place] [phone] (Wo rk) Social History [...] 15 MMOLL POWERCHART HXeGFR (MDRD) >60 >=60 [id number] POWERCHART eGFR Black/ >60 >=60 [id number] POWERCHART Specimen (Source) Anatomical Collection Method Collection [...] as of this encounter Care Teams Manager Research And Development Relationship Specialty Start Date End Date Ewa Alejandro M.D. PCP - General 03/13/17 01/09/20 [address] [place] [phone] documented as of this encounter
--- OUTSIDE RECORDS SUMMARY | 2022-05-28 07:25 | XMS_ITS | Encounter Summary ---
:1945 Author Organization [facility] Address [address] [place] [address] Care Team Providers Name Role Phone Unavailable Primary Care Provider Unavailable Encounter Details Date Type Department Care Team Description 02/27/2017 Hospital Encounter [facility]X [facility] Ewa Grier M.D. [address] [place], [place] [phone] (Wo rk) Social History [...] do you attend gnosticist or Never 2021 anglican services? Do you [...] (ABNORMAL) Lipid Panel (02/27/2017 7:47 AM CDT) [facility] gist Method Time Signature Calculated LDL Test [...] for FH and FDB is available christopher [facility]: FH/ADH Genetic Reflex Saleh el (test ADHP). Acquired (non-genetic) causes of markedly increased LDL cholesterol include cholestatic liver disease due to the presence of LpX. If a genetic form of hypercholesterolemia is suspected, family studies including biochemical testing fo r lipids (total cholesterol,triglycerides, LDL cholesterol and HDL cholesterol) are recommended. ??Please contact the laboratory at or the on-line test catalog at [employer] for information about how to order these [...]
--- OUTSIDE RECORDS SUMMARY | 2022-05-28 07:25 | XMS_ITS | Encounter Summary ---
:1945 Author Organization [facility] Address [address] [place] [address] Care Team Providers Name Role Phone Ewa Alejandro M.D. Primary Care Provider [phone] Reason for Referral MRI/CAT/PET Scan (Routine) - Closed Specialty Diagnoses / Procedures Referred By Contact Refer red To Contact Radiology Diagnoses Dizziness ARMAAN Alejandro SE Region Procedures MR Brain without and with IV Contrast Pat[place] Mcneil [address] [place] [phone] Referral ID Status Reason Start Date Expiration Date Visits Requ ested Visits Authorized [id number] Closed 09/12/2017 03/11/2018 1 1 GER LOAN Reason for Visit MRI/CAT/PET Scan (Routine) - Closed Specialty Diagnoses / Procedures Referred By Contact Refer anna To Contact Radiology Diagnoses Dizziness And Giddiness ARMAAN Alejandro SE Region Procedures MR Brain Angiogram without IV Contrast MR Brain Angiogram without and with IV Contrast [place] MRA HEAD WO/W [facility] MRA HEAD WO/W [facility] [place] MRA HEAD WO/W [facility] [place] MRA HEAD WO [facility] MRA HEAD WO [facility] [place] MRA HEAD WO [facility]TRST [place] Mcneil [address] [place] [phone] Referral ID Status Reason Start Date Expiration Date Visits Requ ested Visits Authorized [id number] Closed 09/10/2017 03/09/2018 1 1 Encounter Details Date Type Department Care Team Description 09/17/2017 Hospital Encounter Department of [facility] Dizzin ess And Giddiness; Radiology in [place], [place], Dizziness [place] [address] [facility] [address] [place], [place] [phone] Social History Tobacco Use Types Packs/Day [...] do you attend sikhism or Never 2021 adventism services? Do you [...] let him know your thoughts. Thank you. GER LOAN documented in this encounter Plan of Treatment Not on filedocumented as of this encounter Procedures Procedure Name Priority Date/Time Associated Comments Diagnosis MR BRAIN WITHOUT RAD - Routine 09/17/2017 10:20 Dizziness Result s for this AND WITH IV (most inpatients AM MANAGER LOAN procedure a re in CONTRAST and all the results outpatients) section. MR BRAIN RAD - Routine 09/17/2017 10:20 Dizziness And Results f or this ANGIOGRAM WITHOUT (most inpatients AM MANAGER LOAN Giddiness proced ure are in IV CONTRAST and all the results outpatients) section. documented in this encounter Results MR Brain Angiogram without IV Contrast (09/17/2017 10:20 AM MANAGER LOAN) Anatomical Region Laterality Modality Head, Brain N/A Magnetic Resonance Specimen (Source) Anatomical Collection Method Collection Time Re ceived Time Location / / Volume Laterality 09/17/2017 11:01 AM MANAGER LOAN Impressions 09/17/2017 11:38 AM MANAGER LOAN IMPRESSION: 1. 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 2. Normal variant head MRA. 3. Paranasal sinus disease appears acute . Narrative 09/17/2017 11:38 AM MANAGER LOAN EXAM: MR BRAIN WITHOUT AND WITH IV [...] disease appears acute . Ewa Alejandro M.D. [facility] MRI PROCEDURES MR Brain without and with IV Contrast (09/17/2017 10:20 AM MANAGER LOAN) Anatomical Region Laterality Modality Head, Brain N/A Magnetic Resonance Specimen (Source) Anatomical Collection Method Collection Time Re ceived Time Location / / Volume Laterality 09/17/2017 11:01 AM MANAGER LOAN Impressions 09/17/2017 11:38 AM MANAGER LOAN IMPRESSION: 1. 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 2. Normal variant head MRA. 3. Paranasal sinus disease appears acute . Narrative 09/17/2017 11:38 AM MANAGER LOAN EXAM: MR BRAIN WITHOUT AND WITH IV [...] injection 1-14 mL Given 09/17/2017 11:00 AM MANAGER LOAN 11 mL (for_GADAVIST) 1-14 mL, intravenous, Once in imaging, contrast, Starting on Fri09/17/17 at 1020, For 1 dose, Imaging Protocol Orders, Dose per Radiant Medication Guidelines documented in this encounter Care Teams Air Grinder Relationship Specialty Start Date End Date Ewa Alejandro M.D. PCP - General 03/13/17 01/09/20 [address], [place] [phone] documented as of this encounter
--- OUTSIDE RECORDS SUMMARY | 2022-05-28 07:25 | XMS_ITS | Encounter Summary ---
:1945 Author Organization [facility] Address [address] [place] [address] Care Team Providers Name Role Phone Ewa Alejandro M.D. Primary Care Provider [phone] Reason for Referral MRI/CAT/PET Scan (Routine) - Closed Specialty Diagnoses / Procedures Referred By Contact Refer red To Contact Radiology Diagnoses Dizziness ARMAAN Alejandro [facility] Region Procedures MR Brain without and with IV Contrast Pato Mcneil [address] [phone] Referral ID Status Reason Start Date Expiration Date Visits Requ ested Visits Authorized [id number] Closed 09/12/2017 03/11/2018 1 1 GER DATA WAREHOUSING Encounter Details Date Type Department Care Team Description 09/12/2017 Orders Only Department of [facility] Philip obrien (Primary Dx) Medicine, [facility], in [place] [address] [place] [address] [place] [address] [phone] Social History Tobacco Use Types Packs/Day Years [...] do you attend advent or Never 2021 roman catholic services? Do [...] with IV Contrast (09/17/2017 10:20 AM MANAGER DATA WAREHOUSING) Anatomical Region Laterality Modality Head, Brain N/A Magnetic Resonance Specimen (Source) Anatomical Collection Method Collection Time Re ceived Time Location / / Volume Laterality 09/17/2017 11:01 AM MANAGER DATA WAREHOUSING Impressions 09/17/2017 11:38 AM MANAGER DATA WAREHOUSING IMPRESSION: 1. 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 2. Normal variant head MRA. 3. Paranasal sinus disease appears acute . Narrative 09/17/2017 11:38 AM MANAGER DATA WAREHOUSING EXAM: MR BRAIN WITHOUT AND WITH IV [...] Dizziness documented in this encounter Care Teams Investment Consultant Relationship Specialty Start Date End Date Ewa Alejandro M.D. PCP - General 03/13/17 01/09/20 [address] [place] [address] documented as of this encounter
--- OUTSIDE RECORDS SUMMARY | 2022-05-28 07:25 | XMS_ITS | Encounter Summary ---
:1945 Author Organization [facility] Address [address] [place] [address] Care Team Providers Name Role Phone Unavailable Primary Care Provider Unavailable Encounter Details Date Type Department Care Team Description 02/27/2017 Hospital Encounter HX NO MAPPING Virginia Bernal M.D. [address] [place], [place] [phone] (Wo [...] do you attend mandaeism or Never 2021 gnosticism services? Do you [...]
--- OUTSIDE RECORDS SUMMARY | 2022-05-28 07:25 | XMS_ITS | Encounter Summary ---
:1945 Author Organization [facility] Address [address] [place] [address] Care Team Providers Name Role Phone Unavailable Primary Care Provider Unavailable Encounter Details Date Type Department Care Team Description 03/03/2017 Hospital Encounter HX [facility] FAMILY[facility] Ewa Forbes M.D. [address] [place], [place] [phone] (Wo rk) Social History [...] do you attend hoahaoism or Never 2021 jew services? Do you [...] Weiss M.D. - 03/03/2017 8:02 AM CDT [id number] CHIEF COMPLAINT/ REASON FOR VISIT Review recent [...] On 11/14/2015 LDL was 113, HDL 37, [id number] and total cholesterol 214. Jonnathan has been prescribed Atorvastatin 40 mg and Gemfibrozil 600 mg twice daily. However, he gets [place] from [place] and has not always been given Atorvastatin as prescribed and has been given other statins in place of Atorvastatin. He is currently taking Lovastatin 40 mg in addition to Gemfibrozil 600 mg twice daily. Per the EMR Jonnathan had an A1C checked at the [place] on 11/08/2016 which showed a result of 9.1%. We checked an A1C here at the clinic on 02/27/2017 with a result of 8.4%. He reports that he had an A1C checked a couple weeks ago at the [place] and his A1C was 9.4%. After that result was reviewed by his doctor at the [place] he was placed on a rigid diet in order to get better control of his diabetes. Jonnathan has plans tomeet with a pharmacist and cra officer monthly at the [place] in order to keep him on track. [...] dysfunction. 6. Pulmonary symptomatology, diagnosis at the [place] unclear, but probably some degree of COPD. 7. Status post left cataract surgery at the [place]. 8. Tonsillectomy. 9. Obstructive sleep apnea, prescribed CPAP therapy but is currently not using. 10. 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 Bernal. 11. Asthma. 12. Greenlight photoselective vaporization of the prostate and cystoscopy with bladder biopsy and fulguration of a 2cm area; 08/28/[address] Prasanna Bernal at the [facility]. PREVENTIVE SERVICES Tobacco use: none, [...] He is working with providers at the [place] to get this under better control. He should continue with his current regimen at this time. Patient was encouraged to continue working with lifestyle modifications. 2. Hypercholesterolemia. I am concerned that his triglycerides are elevated despite being on statin therapy and Gemfibrozil. As the [place] is providing him with Lovastatin rather than [...] behalf by Lulu Roldan, a trained medical fee clerk. The creation of this record is based on the scribe's personal observations and the provider's statements to them. This document has been christie cked and approved by the attending provider. Ewa Hinton M.D./livia Electronically Signed By: EWA WEISS MD On: 03/17/2017 12:36 PM Source: [facility] MHSDOLBEYNONRADSYS Document Id: [id number] documented in this encounter Miscellaneous Notes Miscellaneous [...] HAMILTON LPN - 03/03/2017 8:16 CDT [facility] Document Id: [id number] CDT!8 Miscellaneous - Marti Hamilton L.P.N. - 03/03/2017 8:14 AM CDT Adult Stewarding Supervisor Intake/History Adult Stewarding Supervisor Intake/History Entered On: 03/03/2017 8:16 CDT Performed [...] MARTI HAMILTON [facility] - 03/03/2017 8:14 CDT Caffeine Use Grid Caffeine Use : Current Type : Chocolate, Coffee, Soft drinks Frequency : Daily MARTI HAMILTON [facility] - 03/03/2017 8:14 CDT Recreational Drug Use Grid Drug Use : None MARTI HAMILTON [facility] - 03/03/2017 8:14 CDT Source: [employer] Document Id: [id number] CDT!41 documented in this encounter Plan of Treatment Not on filedocumented as of this encounter Visit Diagnoses Not on filedocumented in this encounter Additional Health Concerns Assessment Noted Time PHQ-9 Depression Total Score: 6 01/31/2015 12:28 PM CD T documented as of this encounter
--- OUTSIDE RECORDS SUMMARY | 2022-05-28 07:25 | XMS_ITS | Encounter Summary ---
:1945 Author Organization [facility] Address [address] [place] [address] Care Team Providers Name Role Phone Ewa Alejandro M.D. Primary Care Provider [phone] Encounter Details Date Type Department Care Team Description 09/05/2017 Abstract Department of Community Internal Provider , [facility] Medicine in [address] [place] [address] Social History Tobacco Use Types Packs/Day [...] do you attend lutheran or Never 2021 hinduism services? Do you [...] documented as of this encounter Care Teams Pick Pulling Machine Operator Relationship Specialty Start Date End Date Ewa Alejandro M.D. PCP - General 03/13/17 01/09/20 [address] [address] documented as of this encounter
--- OUTSIDE RECORDS SUMMARY | 2022-05-28 07:25 | XMS_ITS | Encounter Summary ---
:[address] [facility] Address [address] [place] [address] Care Team Providers Name Role Phone Ewa Alejandro M.D. Primary Care Provider Encounter Details Date Type Department Care Team Description 05/08/2017 Hospital Encounter HX NO MAPPING Virginia Bernal M.D. [address] [place], [place] [phone] (Wo rk) Social History [...] Coding Summary-Paper Based CODING DATE: 05/20/2017 FINAL [facility] STATUS: * Discharged to Home or Self [...] TREVIZO Date Saved: 05/20/2017 02:50 pm Source: [facility] POWERCHART Document Id: [id number] documented in this encounter Plan of Treatment Not on filedocumented as of this encounter Visit Diagnoses Not on filedocumented in this encounter Additional Health Concerns Assessment Noted Time PHQ-9 Depression Total Score: 6 01/31/2015 12:28 PM CD T documented as of this encounter Care Teams Career Development Associate Relationship Specialty Start Date End Date Ewa Alejandro M.D. PCP - General 03/13/17 01/09/[address] [phone] documented as of this encounter
--- OUTSIDE RECORDS SUMMARY | 2022-05-28 07:25 | XMS_ITS | Encounter Summary ---
:1945 Author Organization [facility] Address [address] [place] [address] Care Team Providers Name Role Phone Ewa Alejandro M.D. Primary Care Provider [phone] Encounter Details Date Type Department Care Team Description 09/17/2017 Orders Only Department [facility] Family Mata , [facility] [address] [place] [phone] (Wo rk) Social History Tobacco Use Types [...] do you attend pentecostalism or Never 2021 zoroastrian services? Do you [...] filedocumented in this encounter Care Teams Industrial Maintenance Repairer Helper Relationship Specialty Start Date End Date Ewa Alejandro M.D. PCP - General 03/13/17 01/09/20 [address] [place] [phone] documented as of this encounter
--- OUTSIDE RECORDS SUMMARY | 2022-05-28 07:25 | XMS_ITS | Encounter Summary ---
:1945 Author Organization [facility] Address [address] [place] [address] Care Team Providers Name Role Phone Piero Alejandro M.D. Primary Care Provider [phone] Encounter Details Date Type Department Care Team Description 07/04/2017 Hospital Encounter HX [facility] Piero Grier M.D. [address] [place], [place] [phone] (Wo rk) Social History [...] do you attend congregation or Never 2021 yarsani services? Do you [...] 08, 2017 16:03:35 CDT From: NANO MILES ([facility] Crocheter Hand) To: [facility] Nurse; Sent: 07/08/2017 16:03:35 CDT Subject: RE: Addendum by NANO MILES on July 08, 2017 16:03:25 CDT Patient is scheduled at 2:30 on July 17. Addendum by KYLIE NINO LPN on July 07, 2017 11:05:07 CDT From: KYLIE NINO LPN ([facility] Nurse) To: [facility] Crocheter Hand; Sent: 07/07/2017 11:05:07 CDT Subject: FW: From: PIERO ROJAS MD To: LAWSON Roy Nurse; Sent: 2017 17:00:49 CDT Have S imon follow up and bring a list of blood sugars with him. Source: [facility] POWERCHART Document Id: [id number] documented in this encounter Plan of Treatment [...] documented as of this encounter Care Teams Biological Plant Operator Relationship Specialty Start Date End Date Piero Alejandro M.D. PCP - General 03/13/17 01/09/20 [address], [place] [address] documented as of this encounter
--- OUTSIDE RECORDS SUMMARY | 2022-05-28 07:25 | XMS_ITS | Encounter Summary ---
:1945 Author Organization [facility] Address [address] [place] [address] Care Team Providers Name Role Phone Unavailable Primary Care Provider Unavailable Encounter Details Date Type Department Care Team Description 02/06/2017 Hospital Encounter HX NO MAPPING Virginia Bernal M.D. [address] [place], [place] [phone] (Wo rk) Social History [...]
--- OUTSIDE RECORDS SUMMARY | 2022-05-28 07:25 | XMS_ITS | Encounter Summary ---
:1945 Author Organization [facility] Address [address] [place] [address] Care Team Providers Name Role Phone Ewa Alejandro M.D. Primary Care Provider [phone] Reason for Visit Reason Comments Follow-up states made appoinmtnet when not feelling well, now feelling better not feelling will was related to his B/P med change Appointment Request (Routine) - Closed Specialty Diagnoses / Procedures Referred By Contact Refer red To Contact Family Medicine Referral ID Status Reason Start Date Expiration Date Visits Requ ested Visits Authorized [id number] Closed 09/04/2017 03/03/2018 1 1 Encounter Details Date Type Department Care Team Description 09/10/2017 Office Visit Department of Family Philip obrien [facility] [place] Medicine, [facility], in [place] [address] [place] [phone] Social History Tobacco Use Types Packs/Day Years [...] do you attend anabaptism or Never 2021 uatsdin services? Do you [...] Comments Blood Pressure 138/72 09/10/2017 11:12 AM DIRECTOR OF CARDIOPULMONARY SERVICES Pulse 86 09/10/2017 11:12 AM DIRECTOR OF CARDIOPULMONARY SERVICES Temperature 36.4 ??C (97.5 ??F) 09/10/2017 11:12 AM DIRECTOR OF CARDIOPULMONARY SERVICES Respiratory Rate 18 09/10/2017 11:12 AM DIRECTOR OF CARDIOPULMONARY SERVICES Oxygen Saturation 98% 09/10/2017 11:12 AM DIRECTOR OF CARDIOPULMONARY SERVICES Inhaled Oxygen Concentration - - Weight 111 kg (244 lb 0.8 oz) 09/10/2017 11:12 AM DIRECTOR OF CARDIOPULMONARY SERVICES Height - - Body Mass Index 31.32 [...] up to the service counter at a [employer] and could not get words to come [...] 08/28/[address] Prasanna Bernal at the [facility]. ??? TONSILLECTOMY N/A Tonsillectomy PREVENTIVE [...] an MRA ofthe cerebral arteries at the [facility]. Further recommendations pending results. Follow up The patient will contact the clinic with any new or worsening symptoms. This document serves as a record of services personally performed by Ewa Roy MD. It was created on their behalf by Lulu Roldan, a trained medical staff specialist. The creation of this record is based on the scribe's personal observations and the provider's statements to them. This document has been christie cked and approved by the attending provider. CTOR OF CARDIOPULMONARY SERVICES documented in this encounter Plan of Treatment Not on filedocumented as of this encounter Visit Diagnoses Diagnosis Dizziness And Giddiness documented in this encounter Care Teams Business Systems Advisor Relationship Specialty Start Date End Date Ewa Alejandro M.D. PCP - General 03/13/17 01/09/20 [address] [place] [phone] documented as of this encounter
--- OUTSIDE RECORDS SUMMARY | 2022-05-28 07:25 | XMS_ITS | Encounter Summary ---
:1945 Author Organization [facility] Address [address] [place] [address] Care Team Providers Name Role Phone Unavailable Primary Care Provider Unavailable Encounter Details Date Type Department Care Team Description 02/06/2017 Hospital Encounter [facility]X [facility] Ailyn Bernal M.D. [address] [place] [address] (Wo rk) Social History Tobacco [...] BERNAL MD On: 02/06/2017 10:39 AM Source: [facility] POWERAll Def Digital Document Id: [id number] documented in this encounter Miscellaneous Notes Miscellaneous [...] FUROC Result-Randolph See Comment 02/06/2017 10:17 FUROC Interp-[place] See Comment 02/06/2017 10:17 FUROC Reason for Ref-[place] See Comment 02/06/2017 10:17 FUROC Spec-Randolph Varies 02/06/2017 10:17 FUROC Source-[place] Urine, NOS 02/06/2017 10:17 FUROC Released By-[place] BEATRIZ GALLEGO Source: [facility]als[facility] Document Id: [id number] Miscellaneous - Raegan Toney APRN, R.N. - 02/07/2017 1:04 PM CDT Results Notification Document Contains Addenda Addendum by RODERICK THOMAS LPN on February 12, 2017 09:55:40 CDT Patient's schedule with legal receptionist to have patient leave a urine sample at the [facility]. Addendum by RODERICK THOMAS LPN on [...] Result Name 02/07/2017 12:24 Document - DOC Non-SOCIAL INSURANCE ADVISER Cytology Source: [employer] Document Id: [id number] Miscellaneous - Ailyn Bernal M.D. - 02/06/2017 10:38 AM CDT Ambulatory Patient Summary [facility] [address] [place] [id number] Visit Information Name: BETH COSTA [facility] Number: [id number] Current Date: 02/06/2017 10:38:06 Physicians [...] have one. Go to [email or web address] and click on Create Your Account. Then, follow the directions to complete the online form. Youll be asked for your [facility] number which you can find at the top of this document. Your Goals/Additional instructions: Source: [facility] POWERCHART Document Id: [id number] Miscellaneous - Ailyn Bernal M.D. - 02/06/2017 10:38 AM CDT Ambulatory Discharge Medication List [facility] [address] [place] [id number] Visit Information Name: BETH COSTA [facility] Number: [id number] Current Date: 02/06/2017 10:38:05 Attending [...] MD Signed On:06-FEB-2017 10:38:02 Additional Information: Source: [facility] POWERCHART Document Id: [id number] Miscellaneous - Janes Umanzor L.P.N. - 02/06/2017 10:01 AM CDT Adult Inspector Clip On Sunglasses Intake/History Adult Inspector Clip On Sunglasses Intake/History Entered On: 02/06/2017 10:04 CDT Performed [...] Preferred Communication Mode : Verbal Languages : Pakistani Is Patient Female and [...] UMANZOR LPN - 02/06/2017 10:01 CDT Source: [facility] POWERCHART Document Id: [id number] CDT!33 documented in this encounter Plan of Treatment Not on filedocumented as of this encounter Procedures Procedure Name Priority Date/Time Associated Comments Diagnosis UROVYSION (R) FOR Routine 02/06/2017 10:17 Result s for this BLADDER CANCER AM CDT procedure are in the results section. ZZPATHOLOGY NON-SOCIAL INSURANCE ADVISER Routine 02/06/2017 9:55 AM Re sults for this CYTOLOGY CDT procedure are i n the results section. documented in this encounter Results UroVysion for Detection of Bladder Cancer, Urine (02/06/2017 10:17 AM CDT) [facility] Method Time Signature HXFUROC Result Negative POWERCHART [facility] HXFUROC See Comment POWERCHART Result-[place] Comment: RESULT: No evidence of urotheli al [...] Its performance characteri stics were determined by [facility] in a manner co nsistent with CLIA requirements. This test has not been fernando ared or approved by the U.S. Food and Drug Administration. Reason For Referral See Comment POWERCHA RT Comment: RESULT: Evaluate for urothelial carcinoma. HXFUROC Spec-[place] Varies POWERCHART HXFUROC Source-[place] Urine, NOS POWERCHAR T HXFUROC Released By-[place] BEATRIZ WALLER ERCHART Comment: Test Performed by: [facility] - [address] [address] Specimen (Source) Anatomical Collection Method Collection Time Re ceived Time Location / / Volume Laterality Urine 02/06/2017 10:17 AM CDT Ailyn Bernal M.D. LAB GENETIC TESTING Performing Organization Address City/State/ZIP Code Phon e Number POWERCHART ZZPATHOLOGY NON-SOCIAL INSURANCE ADVISER CYTOLOGY (02/06/2017 9:55 AM CDT) Specimen (Source) Anatomical Collection Method Collection Time Re ceived Time Location / / Volume Laterality 02/06/2017 9:55 AM CDT Narrative [facility] - 02/07/2017 12:24 PM CDT [facility] [place] [address] [place] [address] ??[phone] Patient Name: BETH COSTA Patient ID #: [id number] Collected: 02/06/2017 Address: [facility]/Zip: [id number] [place] [address] ??[phone] Received: Reported: 02/07/2017 02/07/2017 Soc. Sec. #: ?/Age/Sex 1945 (Age: 71) ??M Physician(s): Juana BERNAL MD Copy To: ? [facility] ?? [id number] [address] [facility], ??[place] ??[address] CYTOPATHOLOGY NON-SOCIAL INSURANCE ADVISER REPORT FINAL CYTOLOGIC DIAGNOSIS Urine-CATHETERIZED OR POST [...]
--- OUTSIDE RECORDS SUMMARY | 2022-05-28 07:25 | XMS_ITS | Encounter Summary ---
:1945 Author Organization [facility] Address [address] [place] [address] Care Team Providers Name Role Phone Piero Alejandro M.D. Primary Care Provider [phone] Encounter Details Date Type Department Care Team Description 07/17/2017 Hospital Encounter HX [facility] FAMILYPRA Piero Frobes M.D. [address] [place], [place] [address] (Wo rk) Social History [...] do you attend mormonism or Never 2021 hindu services? Do you [...] dysfunction. 6. Pulmonary symptomatology, diagnosis at the [facility] unclear, but probably some degree of COPD. 7. Status post left cataract surgery at the [facility]. 8. Tonsillectomy. 9. Obstructive sleep apnea, prescribed CPAP therapy but is currently not using. 10. 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 Bernal. 11. Asthma. 12. Greenlight photoselective vaporization of the prostate and cystoscopy with bladder biopsy and fulguration of a 2cm area; 08/28/[address] Prasanna Bernal at the [facility]. PREVENTIVE SERVICES Tobacco use: none, former smoker [...] and work with his team at the [facility]. He will update me with any changes to his regimen. 3. Follow up: The patient will contact the clinic with any new or worsening symptoms. This document serves as a record of services personally performed by Piero [place] MD. It was created on their behalf by Karen Givens, a trained medical psychotherapist. The creation of this record is based on the scribe's personal observations and the provider's statements to them. This document has been ch ecked and approved by the attending provider. Piero Hinton M.D./ Electronically Signed By: PIERO ROJAS MD On: 07/22/2017 10:24 PM Source: [facility] MHSDOLBEYNONRADSYS Document Id: [id number] documented in this encounter Miscellaneous Notes Miscellaneous [...] ROJAS MD - 07/22/2017 12:44 CDT Source: [facility] POWERCHART Document Id: [id number] CDT!13 Miscellaneous - Marti Hamilton, L.P.N. - [...] HAMILTON LPN - 07/17/2017 15:29 CDT Source: [employer] Document Id: [id number] CDT!8 Miscellaneous - Marti Hamilton L.P.N. - [...] None Behavioral Health Screen/Safety Assmt : No Bahai Preference : Unknown MARTI HAMILTON LPN - 07/17/2017 15:27 CDT Advance Directive Advanced Directives : No Advance Directive Additional Information : No MARTI HAMILTON LPN - 07/17/2017 15:27 CDT Educ Needs Learning Style Preference Adult Grid Patient : Demonstration, Printed materials, Verbal explanation Family : None MARTI HAMILTON LPN - 07/17/2017 15:27 CDT [facility] Document Id: [id number] CDT!37 Miscellaneous - Marti Hamilton L.P.N. - 07/17/2017 3:26 PM CDT Adult Porcelain Enameler Intake/History Adult Porcelain Enameler Intake/History Entered On: 07/17/2017 15:27 CDT Performed [...] Preferred Communication Mode : Verbal Languages : Equatorial Guinean Is Patient Female and 13-50 no [...] Tobacco Last Use/Year : 1982 MARTI HAMILTON IRONING MACHINE OPERATOR - 07/17/2017 15:26 CDT Caffeine Use Grid Caffeine Use : Current Type : Chocolate, Coffee, Soft drinks Frequency : Daily MARTI HAMILTON LPN - 07/17/2017 15:26 CDT Recreational Drug Use Grid Drug Use : None MARTI HAMILTON IRONING MACHINE OPERATOR - 07/17/2017 15:26 CDT Source: [employer] Document Id: [id number] CDT!41 documented in this encounter Plan of Treatment Not on filedocumented as of this encounter Visit Diagnoses Not on filedocumented in this encounter Additional Health Concerns Assessment Noted Time PHQ-9 Depression Total Score: 6 01/31/2015 12:28 PM CD T documented as of this encounter Care Teams Shank Inspector Relationship Specialty Start Date End Date Piero Alejandro M.D. PCP - General 03/13/17 01/09/20 [address] [place] [phone] documented as of this encounter
--- OUTSIDE RECORDS SUMMARY | 2022-05-28 07:26 | XMS_ITS | Encounter Summary ---
:1945 Author Organization [facility] Address [address] [place] [address] Care Team Providers Name Role Phone Unavailable Primary Care Provider Unavailable Encounter Details Date Type Department Care Team Description 05/27/2016 Hospital Encounter HX [facility] Ailyn Bernal M.D. 0 [place] [address] (Wo rk) Social History Tobacco [...] Bernal M.D. - 05/27/2016 9:27 AM CDT [id number] CHIEF COMPLAINT/REASON FOR VISIT bladder tumor. HISTORY [...] Ailyn Bernal M.D./phong cc: Piero Hinton M.D. [facility] in [address] [address] Electronically Signed By: AILYN BERNAL MD On: 06/11/2016 07:56 AM Source: [facility] MHSDOLBEYNONRADSYS Document Id: [id number] documented in this encounter Miscellaneous Notes Miscellaneous - Ailyn Bernal M.D. - 05/27/2016 11:40 AM CDT Ambulatory Patient Summary [facility] [address] [place] [id number] Visit Information Name: BETH COSTA [facility] Number: [id number] Current Date: 05/27/2016 11:40:56 Physicians [...] Appointments Date Time Location Provider 08/19/2016 08:15 [facility] [place] MD 08/29/2016 08:15 [facility] [...] if you dont have one. Go to [email or web address] and click on Create Your Account. Then, follow the directions to complete the online form. Youll be asked for your [facility] number which you can find at the top of this document. Your Goals/Additional instructions: Source: [facility] POWERCHART Document Id: [id number] Miscellaneous - Ailyn Bernal M.D. - 05/27/2016 11:40 AM CDT Ambulatory Discharge Medication List [address] [id number] Visit Information Name: BETH COSTA [facility] Number: [id number] Visit Date: 05/27/2016 11:40:55 Attending [...] MD Signed On:27-MAY-2016 11:40:45 Additional Information: Source: [facility] POWERCHART Document Id: [id number] Miscellaneous - Nayeli Nava CMauroMJeff. - 05/27/2016 10:31 AM CDT Care Coordination Message From: NAYELI NAVA [facility] To: PIERO ROJAS MD; Sent: 05/27/2016 10:31:13 CDT ! Subject: Care Coordination Message Patient was seen in [place], Urology. He is concerned about his blood pressure medication and whether or not it is necessary for him to continue taking it. He presents today a blood pressure of 98/56 and feeling light headed. Patient would like a call back from you or maybe a follow up appointment topossbly discontiue the medication or simply adjust the dosage. Please contact patient at [phone]. Source: [facility] POWERCHART Document Id: [id number] Electronically signed by Karen [facility] Medical Centersarita User Experience Analyst [id number] at 02/23/2017 1:43 AM CDT Miscellaneous - [...] HAGER LPN - 05/27/2016 10:01 CDT Source: [facility] Document Id: [id number] CDT!7 Miscellaneous - Becky Hager L.P.N. - 05/27/2016 9:39 AM CDT Adult Rug Designer Intake/History Adult Rug Designer Intake/History Entered On: 05/27/2016 9:39 CDT Performed [...] Preferred Communication Mode : Verbal Languages : Kinyarwanda Is Patient Female and 13-50 no hysterectomy [...] Juana SOLIS - 05/27/2016 9:39 CDT Source: [facility] Document Id: [id number] CDT!34 Miscellaneous - Ailyn Bernal M.D. - [...] if he should drive with his to [place], [place] about 200 miles away. Patient read in his instructions not to drive long distances and was wondering if this drive would effect his bladder biopsy at all. Source: [facility] Document Id: [id number] documented in this encounter Plan of Treatment Not on filedocumented as of this encounter Visit Diagnoses Not on filedocumented in this encounter Additional Health Concerns Assessment Noted Time PHQ-9 Depression Total Score: 6 01/31/2015 12:28 PM CD T documented as of this encounter
--- OUTSIDE RECORDS SUMMARY | 2022-05-28 07:26 | XMS_ITS | Encounter Summary ---
:1945 Author Organization [facility] Address [address] [place] [address] Care Team Providers Name Role Phone Unavailable Primary Care Provider Unavailable Encounter Details Date Type Department Care Team Description 08/12/2016 Hospital Encounter HX [facility] Cesar Fernandes, URGENTCAR P.A.-C. [address] , [address] [id number] (Wo rk) Social History Tobacco Use Types [...] do you attend restorationist or Never 2021 amish services? Do you [...] Comments Blood Pressure 145/76 08/12/2016 10:41 AM OIL SEPARATOR Pulse 85 08/12/2016 10:41 AM OIL SEPARATOR Temperature - - Respiratory Rate 24 08/12/2016 10:41 AM OIL SEPARATOR Oxygen Saturation - - Inhaled Oxygen Concentration - - Weight 109 kg (239 lb 10.2 oz) 08/12/2016 10:41 AM OIL SEPARATOR Height - - Body Mass Index 30.75 [...] Brock P.A.-C. - 08/12/2016 9:45 AM CST [id number] CHIEF COMPLAINT/REASON FOR VISIT Productive cough, sinus pressure. HISTORY OF PRESENT ILLNESS This is a 71-year-old male who has had a productive cough for 2 months. He has home prednisone prescription that he gets from the [facility] that he started taking his burst of [...] BROCK PA-C On: 08/13/2016 02:54 PM Source: [facility] MHSDOLBEYNONRADSYS Document Id: [id number] SEPARATOR documented in this encounter Miscellaneous Notes Miscellaneous - Cesar Brock P.A.-C. - 08/12/2016 10:58 AM CST Ambulatory Patient Summary [facility] [address] [place], [place] [phone] Visit Information Name: JONNATHAN COSTA [facility] Number: [id number] Current Date: 08/12/2016 10:58:21 [...] directed x 5 day(s) [facility] [address] [place] [address] budesonide-formoterol (budesonide-formoterol 160 mcg-4.5 mcg/inh inhalation aerosol) [...] Time Location Provider 08/19/2016 08:15 [facility] [place] [facility] 08/29/2016 10:15 [facility] Urology [...] if you dont have one. Go to [email or web address] and click on Create Your Account. Then, follow the directions to complete the online form. Youll be asked for your [facility] number which you can find at the top of this document. Your Goals/Additional instructions: Source: [facility] POWERCHART Document Id: [id number] SEPARATOR Miscellaneous - Cesar Brock P.A.-C. - 08/12/2016 10:58 AM CST Ambulatory Discharge Medication List [facility] [address] [place], [place] [phone] Visit Information Name: JONNATHAN COSTA [facility] Number: [id number] Current Date: 08/12/2016 10:58:20 [...] directed x 5 day(s) New Routed to [facility] [address] [place] [address] budesonide-formoterol (budesonide-formoterol 160 mcg-4.5 mcg/inh [...] PA-C Signed On:12-AUG-2016 10:58:18 Additional Information: Source: [facility] POWERCHART Document Id: [id number] SEPARATOR Miscellaneous - Opal Banda, L.P.N. - 08/12/2016 10:41 AM CST Adult Graphic Pre Press Trades Worker Intake/History Adult Graphic Pre Press Trades Worker Intake/History Entered On: 08/12/2016 10:46 OIL SEPARATOR Performed On: 08/12/2016 10:41 OIL SEPARATOR by OPAL BANDA ACETYLENE CYLINDER PACKING MIXER Intake Chief Complaint : Productive cough, clesar to light yellow, sinus pressure Onset of Symptoms : 2 months Ambulatory Intake Additional Information : T[facility] yesterday, ithelped History of Agent Dixon per patient Temperature Oral : 36.6 DegC(Converted [...] Weight Clinic : 108.7 kg OPAL BANDA [facility] - 08/12/2016 10:41 OIL SEPARATOR General Info Information Given By : Patient Languages : Telugu Is Patient Female and 13-50 no hysterectomy : No OPAL BANDA [facility] - 08/12/2016 10:41 OIL SEPARATOR Subjective Pain Symptoms : No OPAL BANDA [facility] 08/12/2016 10:41 OIL SEPARATOR Dependent Habits Exposure to Tobacco Smoke : Other: quit in 1982 Smoking Status : Former smoker Tobacco 2A : Yes Tobacco Use/Currently Using : No Tobacco Use/Last 30 Days : No Tobacco Use/Last 12 months : No Tobacco Last Use/Year : 1982 OPAL BANDA [facility] - 08/12/2016 10:41 OIL SEPARATOR Caffeine Use Grid Caffeine Use : Current Type : Chocolate, Coffee, Soft drinks Frequency : Daily OPAL BANDA [facility] - 08/12/2016 10:41 OIL SEPARATOR Recreational Drug Use Grid Drug Use : None OPAL BANDA [facility] 08/12/2016 10:41 OIL SEPARATOR Source: [employer] Document Id: [id number] OIL SEPARATOR!39 SEPARATOR documented in this encounter Plan of Treatment Not on filedocumented as of this encounter Visit Diagnoses Not on filedocumented in this encounter Additional Health Concerns Assessment Noted Time PHQ-9 Depression Total Score: 6 01/31/2015 12:28 PM CD T documented as of this encounter
--- OUTSIDE RECORDS SUMMARY | 2022-05-28 07:26 | XMS_ITS | Encounter Summary ---
:1945 Author Organization [facility] Address [address] [place] [address] Care Team Providers Name Role Phone Unavailable Primary Care Provider Unavailable Encounter Details Date Type Department Care Team Description 05/16/2016 Hospital Encounter HX [facility] FB FAMILYPRA Piero oMya i, M.D. [address] [place] [address] (Wo rk) Social History Tobacco [...] do you attend baptism or Never 2021 bahai services? Do you [...] Weiss M.D. - 05/16/2016 9:27 AM CDT [id number] CHIEF COMPLAINT/ REASON FOR VISIT Proposed surgery date: 05/22/2016. Surgeon: Dr. Prasanna Bernal. Proposed surgery: Cystoscopy with bladder biopsies, transurethral resection of bladder tumor. Location: [facility] HISTORY OF PRESENT ILLNESS Jonnathan is [...] [facility] [...] surgery at [facility]. 8. Tonsillectomy. 9. Obstructive sleep apnea, prescribed [...] He doesn't smoke. 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 FAMILY HISTORY Mother had hypertension. There is no colon or prostate cancer in the family. There is no diabetes. Father had an GA at age 76. Asthma and mental illness [...] refer patient to uro-oncology at [facility] per his request. Referral is pending results from upcoming procedure. 3. Follow up. The patient will contact the clinic with any new or worsening symptoms. This document serves as a record of services personally performed by Piero [place] MD. It was created on their behalf by Lulu Roldan, a trained medical record administrator. The creation of this record is based on the scribe's personal observations and the provider's statements to them. This document has been christie cked and approved by the attending provider. Piero Hinton M.D./livia Electronically Signed By: PIERO WEISS MD On: 06/10/2016 09:24 AM Source: [facility] MHSDOLBEYNONRADSYS Document Id: [id number] documented in this encounter Miscellaneous Notes Miscellaneous - Kitty Bailey L.PMauroNMauro - 05/16/2016 10:29 AM CDT Adult Endoscopic Technician Intake/History Adult Endoscopic Technician Intake/History Entered On: 05/16/2016 10:30 CDT Performed [...] Information Given By : Patient Languages : Icelandic Is Patient Female and 13-50 no hysterectomy [...] BAILEY LPN - 05/16/2016 10:29 CDT Source: [facility] POWERCHART Document Id: [id number] CDT!40 Kitty Tang LMauroP.N. - 05/16/2016 10:28 [...] BAILEY LPN - 05/16/2016 10:28 CDT Source: [employer] Document Id: [id number] CDT!5 Kitty Tang L.P.NMauro - 05/16/2016 10:27 AM CDT Adult Endoscopic Technician Intake/History Adult Endoscopic Technician Intake/History Entered On: 05/16/2016 10:28 CDT Performed On: 05/16/2016 10:27 CDT by KITTY BAILEY LPN Intake Chief Complaint : pre op KITTY BAILEY LPN - 05/16/2016 10:27 CDT General Info Information Given By : Patient Languages : Icelandic Is Patient Female and 13-50 no hysterectomy [...] Grid Drug Use : None KITTY BAILEY MATH AND SCIENCE INSTRUCTOR - 05/16/2016 10:27 CDT Source: [facility] POWERCHART Document Id: [id number] CDT!25 documented in this encounter Plan of [...] Volume Laterality 05/16/2016 10:16 AM CDT [facility] [employer] - 05/16/2016 10:16 AM CDT Test [...] Organization Address City/State/ZIP Code Phon e Number [facility] [address] [place] [id number] DX Chest Anterior Posterior or Posterior Anterior [...]
--- OUTSIDE RECORDS SUMMARY | 2022-05-28 07:26 | XMS_ITS | Encounter Summary ---
:1945 Author Organization [facility] Address [address] [place] [address] Care Team Providers Name Role Phone Unavailable Primary Care Provider Unavailable Encounter Details Date Type Department Care Team Description 06/04/2016 Hospital Encounter HX [facility] FB NURSE Piero Hong i, M.D. [address] [place] [address] (Wo rk) Social History Tobacco [...] do you attend episcopalian or Never 2021 quaker services? Do you [...] his surgery. B/P 131/67 Pulse 80 Source: [facility] Document Id: [id number] Electronically signed by Karen [facility] Loading Machine Adjuster [id number] at 02/23/2017 5:47 AM CDT Miscellaneous - Erica Morgan C.M.A. - 06/04/2016 [...] Pressure Cuff Size : Large ERICA MORGAN [facility] - 06/04/2016 10:01 CDT Source: [facility] [employer] Document Id: [id number] CDT!8 documented in this encounter Plan of Treatment Not on filedocumented as of this encounter Visit Diagnoses Not on filedocumented in this encounter Additional Health Concerns Assessment Noted Time PHQ-9 Depression Total Score: 6 01/31/2015 12:28 PM CD T documented as of this encounter
--- OUTSIDE RECORDS SUMMARY | 2022-05-28 07:26 | XMS_ITS | Encounter Summary ---
:1945 Author Organization [facility] Address [address] [place] [address] Care Team Providers Name Role Phone Unavailable Primary Care Provider Unavailable Encounter Details Date Type Department Care Team Description 08/29/2016 Hospital Encounter HX [facility] Lo Rehman, FAROOQ, R.N. [address] [place] [address] (Wo rk) Social History Tobacco [...] do you attend taoism or Never 2021 yazdanism services? Do you [...] Comments Blood Pressure 132/80 08/29/2016 10:45 AM DIPLOMA MAKER Pulse 80 08/29/2016 10:45 AM DIPLOMA MAKER Temperature - - Respiratory Rate - - [...] APRN, RN On: 09/12/2016 08:21 AM Source: [facility] MHSDOLBEYNONRADSYS Document Id: [id number] OMA MAKER documented in this encounter Miscellaneous Notes Miscellaneous - Raegan Rehman APRN, R.N. - 08/29/2016 11:22 AM DIPLOMA MAKER Ambulatory Patient Summary [facility] [address] [place], [place] [phone] Visit Information Name: JONNATHAN COSTA [facility] Number: [id number] Current Date: 08/29/2016 11:22:32 Physicians Attending Provider: RAEGAN REHMAN APRN manager critical care unit Provider: PIERO ROJAS MD JONNATHAN COSTA has [...] if you dont have one. Go to [email or web address] and click on Create Your Account. Then, follow the directions to complete the online form. Youll be asked for your [facility] number which you can find at the top of this document. Your Goals/Additional instructions: Source: [facility] POWERCHART Document Id: [id number] OMA MAKER Miscellaneous - Raegan Rehman APRN, R.N. - 08/29/2016 11:22 AM DIPLOMA MAKER Ambulatory Discharge Medication List [address] [id number] Visit Information Name: JONNATHAN COSTA [facility] Number: [id number] Current Date: 08/29/2016 11:22:31 Attending [...] RN Signed On:29-AUG-2016 11:22:17 Additional Information: Source: [facility] POWERCHART Document Id: [id number] OMA MAKER Miscellaneous - Prudence Peralta, L.P.N. - 08/29/2016 10:45 AM CST Adult Automobile Accessories Installer Intake/History Adult Automobile Accessories Installer Intake/History Entered On: 08/29/2016 10:47 DIPLOMA MAKER Performed On: 08/29/2016 10:45 DIPLOMA MAKER by PRUDENCE PERALTA LPN Intake Chief Complaint : Trial void Temperature Core : 36.6 DegC(Converted to: 97.9 DegF) Peripheral Pulse Rate : 80 /min Heart Rhythm : Regular Systolic Blood Pressure : 132 mmHg Diastolic Blood Pressure : 80 mmHg NIBP Mean : 97 mmHg BP Location : Left upper extremity Blood Pressure Cuff Size : Regular PRUDENCE PERALTA LPN - 08/29/2016 10:45 DIPLOMA MAKER General Info Information Given By : Patient Preferred Communication Mode : Verbal Languages : Mongolian Is Patient Female and 13-50 no hysterectomy : No PRUDENCE PERALTA LPN - 08/29/2016 10:45 DIPLOMA MAKER Subjective Pain Symptoms : No PRUDENCE PERALTA LPN - 08/29/2016 10:45 DIPLOMA MAKER Dependent Habits Exposure to Tobacco Smoke : Other: quit in 1982 Smoking Status : Former smoker Tobacco 2A : Yes Tobacco Use/Currently Using : No Tobacco Use/Last 30 Days : No Tobacco Use/Last 12 months : No Tobacco Last Use/Year : 1982 PRUDENCE PERALTA LPN - 08/29/2016 10:45 DIPLOMA MAKER Caffeine Use Grid Caffeine Use : Current Type : Chocolate, Coffee, Soft drinks Frequency : Daily PRUDENCE PERALTA LPN - 08/29/2016 10:45 DIPLOMA MAKER Recreational Drug Use Grid Drug Use : None PRUDENCE PERALTA LPN - 08/29/2016 10:45 DIPLOMA MAKER [facility] Document Id: [id number] DIPLOMA MAKER!34 OMA MAKER Miscellaneous - Oim Blevins - 07/16/2016 11:01 AM CDT *General Message-panel management From: OMI BLEVINS LPN Sent: 07/16/2016 11:01:56 CDT Subject: *General Message-panel management Pt is due for fasting diabetic labs and [facility] results to upcoming pre-op appt. Source: [facility] POWERCHART Document Id: [id number] Electronically signed by Conversion, [facility] Farrowing Manager [id number] at 02/23/2017 7:04 AM CDT documented in this encounter Plan of Treatment Not on filedocumented as of this encounter Visit Diagnoses Not on filedocumented in this encounter Additional Health Concerns Assessment Noted Time PHQ-9 Depression Total Score: 6 01/31/2015 12:28 PM CD T documented as of this encounter
--- OUTSIDE RECORDS SUMMARY | 2022-05-28 07:26 | XMS_ITS | Encounter Summary ---
:1945 Author Organization [facility] Address [address] [place] [address] Care Team Providers Name Role Phone Unavailable Primary Care Provider Unavailable Encounter Details Date Type Department Care Team Description 11/07/2016 Hospital Encounter HX [facility] Ailyn Bernal M.D. 0 [place] [address] (Wo rk) Social History Tobacco [...] Comments Blood Pressure 148/70 11/07/2016 9:46 AM ELECTRICIAN SECOND Pulse 72 11/07/2016 9:46 AM ELECTRICIAN SECOND Temperature - - Respiratory Rate 20 11/07/2016 9:46 AM ELECTRICIAN SECOND Oxygen Saturation - - Inhaled Oxygen Concentration [...] BERNAL MD On: 11/07/2016 10:19 AM Source: [employer] Document Id: [id number] TRICIAN SECOND documented in this encounter Miscellaneous Notes Miscellaneous - Ailyn Bernal M.D. - 11/12/2016 5:07 PM CST Results Notification Document Contains Addenda Addendum by RODERICK THOMAS LPN on November 12, 2016 17:25:14 ELECTRICIAN SECOND Patient was informed of normal results. From: AILYN BERNAL MD To: Urology Nurse; Sent: 11/12/2016 17:07:59 ELECTRICIAN SECOND ! Show up: 11/12/2016 17:07:59 ELECTRICIAN SECOND Subject: Results Notification Actions: Notify patient of results Reminder Comments: FISH is neg Results: Date Result Name Value 11/07/2016 10:38 FUROC Result Sum-[place] Negative 11/07/2016 10:38 FUROC Result-[place] See Comment 11/07/2016 10:38 FUROC Interp-[place] See Comment 11/07/2016 10:38 FUROC Reason for Ref-[place] See Comment 11/07/2016 10:38 FUROC Spec-[place] Varies 11/07/2016 10:38 FUROC Source-[place] Urine, NOS 11/07/2016 10:38 FUROC Released By-[place] See Comment [facility]: [facility] Document Id: [id number] Electronically signed by Conversion, [facility] College Advisor [id number] at 03/11/2017 12:06 AM CDT Miscellaneous - Raegan Toney APRN, R.N. - 11/08/2016 4:29 PM ELECTRICIAN SECOND Results Notification Document Contains Addenda Addendum by RODERICK THOMAS LPN on November 08, 2016 17:23:08 ELECTRICIAN SECOND Fish pending. From: RAEGAN TONEY APRN RN To: Urology Nurse; Sent: 11/08/2016 16:29:56 ELECTRICIAN SECOND ! Show up: 11/08/2016 16:29:56 ELECTRICIAN SECOND Subject: Results Notification Actions: Notify patient of results Reminder Comments: cyto negative Results: Date Result Type Result Name 11/08/2016 12:59 Document - DOC Non-CAMPUS MONITOR Cytology Source: [facility] MyFeelBack Document Id: [id number] Electronically signed by Conversion, [facility] College Advisor [id number] at 03/11/2017 12:06 AM CDT Reji - Ailyn Bernal M.D. - 11/07/2016 10:19 AM CST Ambulatory Patient Summary [facility] [address] [place] [id number] Visit Information Name: BETH COSTA [facility] Number: [id number] Current Date: 11/07/2016 10:19:49 [...] of this document. Your Goals/Additional instructions: Source: [facility] POWERCHART Document Id: [id number] TRICIAN SECOND Miscellaneous - Ailyn Bernal M.D. - 11/07/2016 10:19 AM CST Ambulatory Discharge Medication List [address] [id number] Visit Information Name: BETH COSTA [facility] Number: [id number] Current Date: 11/07/2016 10:19:48 [...] MD Signed On:07-NOV-2016 10:19:44 Additional Information: Source: [facility] POWERCHART Document Id: [id number] TRICIAN SECOND Miscellaneous - Janes Umanzor L.PMauroNMauro - 11/07/2016 9:46 AM CST Adult Mechanical Meter Tester Intake/History Adult Mechanical Meter Tester Intake/History Entered On: 11/07/2016 9:49 ELECTRICIAN SECOND Performed On: 11/07/2016 9:46 ELECTRICIAN SECOND by JANES UMANZOR LPN Intake Chief Complaint [...] air JANES UMANZOR LPN - 11/07/2016 9:46 ELECTRICIAN SECOND General Info Information Given By : Patient Preferred Communication Mode : Verbal Languages : Gibraltarian Is Patient Female and 13-50 no hysterectomy : No JANES UMANZOR LPN - 11/07/2016 9:46 ELECTRICIAN SECOND Subjective Pain Symptoms : No JANES UMANZOR LPN - 11/07/2016 9:46 ELECTRICIAN SECOND Dependent Habits Exposure to Tobacco Smoke : Other: quit in 1982 Smoking Status : Former smoker Tobacco 2A : Yes Tobacco Use/Currently Using : No Tobacco Use/Last 30 Days : No Tobacco Use/Last 12 months : No Tobacco Last Use/Year : 1982 JANES UMANZOR LPN - 11/07/2016 9:46 ELECTRICIAN SECOND Caffeine Use Grid Caffeine Use : Current Type : Chocolate, Coffee, Soft drinks Frequency : Daily JANES UMANZOR LPN - 11/07/2016 9:46 ELECTRICIAN SECOND Recreational Drug Use Grid Drug Use : None JANES UMANZOR LPN - 11/07/2016 9:46 ELECTRICIAN SECOND Source: [facility] POWERCHART Document Id: [id number] ELECTRICIAN SECOND!35 TRICIAN SECOND documented in this encounter Plan of Treatment Not on filedocumented as of this encounter Procedures Procedure Name Priority Date/Time Associated Comments Diagnosis UROVYSION (R) FOR Routine 11/07/2016 10:38 Result s for this BLADDER CANCER AM ELECTRICIAN SECOND procedure are in the results section. ZZPATHOLOGY NON-CAMPUS MONITOR Routine 11/07/2016 9:06 AM Re sults for this CYTOLOGY ELECTRICIAN SECOND procedure are i n the results section. documented in this encounter Results UroVysion for Detection of Bladder Cancer, Urine (11/07/2016 10:38 AM ELECTRICIAN SECOND) [facility] gist Method Time Signature HXFUROC Result Negative POWERCHART [facility] HXFUROC See Comment POWERCHART Result-[place] Comment: RESULT: No evidence of urotheli al [...] Comment: RESULT: Evaluate for urothelial carcinoma. HXFUROC Spec-[place] Varies POWERCHART HXFUROC Source-[place] Urine, NOS POWERCHAR T HXFUROC Released By-[place] See Comment POW ERCHART Comment: RESULT: Miguelito Crowell M.D., Ph.D. Test Performed by: [facility] [place] [address] Hair Mixer: Jesus Louis II, M.D., Ph.D. Specimen (Source) Anatomical Collection Method Collection Time Re ceived Time Location / / Volume Laterality Urine 11/07/2016 10:38 AM ELECTRICIAN SECOND Ailyn Bernal M.D. LAB GENETIC TESTING Performing Organization Address City/State/ZIP Code Phon e Number POWERCHART ZZPATHOLOGY NON-CAMPUS MONITOR CYTOLOGY (11/07/2016 9:06 AM ELECTRICIAN SECOND) Specimen (Source) Anatomical Collection Method Collection Time Re ceived Time Location / / Volume Laterality 11/07/2016 9:06 AM ELECTRICIAN SECOND Narrative [facility] - 11/08/2016 12:59 PM ELECTRICIAN SECOND [facility] [address] [place], [place] ??[phone] Patient Name: BETH COSTA Patient ID #: [id number] Collected: 11/07/2016 Address: [facility]/State/Zip: [address] [place], [place] ??[id number] Received: Reported: 11/08/2016 11/08/2016 Soc. Sec. #: ?/Age/Sex 1945 (Age: 71) ??M Physician(s): Juana BERNAL MD Copy To: ? [facility] ?? [phone] [facility], ??[place] ??[address] CYTOPATHOLOGY NON-CAMPUS MONITOR REPORT FINAL CYTOLOGIC DIAGNOSIS Urine-VOIDED: NEGATIVE FOR HIGH-GRADE UROTHELIAL CARCINOMA SATISFACTORY SPECIMEN FOR EVALUATION. Electronically Signed By [facility]/11/08/2016 Pato FARMER([facility]) SPECIMEN(S) RECEIVED: Urine-VOIDED CLINICAL HISTORY: HISTORY OF BLADDER CANCER GROSS DESCRIPTION: 2 CYTOSPINS PREPARED FROM 25 ML YELLOW A LCOHOL FIXED FLUID. Ailyn Bernal M.D. LAB PATHOLOGY/CYTOLOGY ORDER ELISHA Performing Organization Address City/[facility]/ZIP Code Phon e Number [facility] documented in this encounter Visit Diagnoses Not on filedocumented in this encounter Additional Health Concerns Assessment Noted Time PHQ-9 Depression Total Score: 6 01/31/2015 12:28 PM CD T documented as of this encounter
--- OUTSIDE RECORDS SUMMARY | 2022-05-28 07:26 | XMS_ITS | Encounter Summary ---
:1945 Author Organization [facility] Address [address] [place] [address] Care Team Providers Name Role Phone Unavailable Primary Care Provider Unavailable Encounter Details Date Type Department Care Team Description 08/28/2016 Hospital Encounter HX NO MAPPING [place] Bernal M.D. [address] [place], [place] [phone] (Wo rk) Social [...] do you attend congregation or Never 2021 hinduism services? Do you [...] THOMAS LPN on August 30, 2016 11:51:29 OPERATOR ASSISTANT I CEMENTING Patient was informed of normal results. He was also scheduled with a 3 month follow up cystoscopy. From: AILYN BERNAL MD To: Urology Nurse; Sent: 08/30/2016 11:27:50 OPERATOR ASSISTANT I CEMENTING ! Show up: 08/30/2016 11:27:50 OPERATOR ASSISTANT I CEMENTING Subject: Results Notification Actions: Notify patient of results Reminder Comments: bladder bx; no cancer. Arrange office cysto in 3 months, and PVP as already planned Results: Date Result Type Result Name 08/30/2016 9:34 Document - mdoc Surgical Pathology Report Source: [facility] POWERCHART Document Id: [id number] Electronically signed by Conversion, [facility] Commercial Helicopter Pilot [id number] at 02/23/2017 12:07 AM CDT documented in this encounter Plan of Treatment Not on filedocumented as of this encounter Procedures Procedure Name Priority Date/Time Associated Diagnosis Comme nts SURGICAL PATHOLOGY Routine 08/28/2016 12:00 AM Re sults for this OPERATOR ASSISTANT I CEMENTING procedure are i n the results section. SURGICAL PATHOLOGY Routine 08/28/2016 12:00 AM Re sults for this OPERATOR ASSISTANT I CEMENTING procedure are i n the results section. documented in this encounter Results Pathology Surgical Pathology (08/28/2016 12:00 AM OPERATOR ASSISTANT I CEMENTING) Specimen (Source) Anatomical Location Collection Method / Collectio n Time Received Time / Laterality Volume 08/28/2016 Narrative [facility] - 08/30/20 16 11:27 AM OPERATOR ASSISTANT I CEMENTING Historical Provider LAB SURG PATH ORDERABLES Performing Organization Address City/State/ZIP Code Phon e Number [facility] NA Pathology Surgical Pathology (08/28/2016 12:00 AM OPERATOR ASSISTANT I CEMENTING) Specimen (Source) Anatomical Location Collection Method / Collectio n Time Received Time / Laterality Volume 08/28/2016 Narrative [facility] - 08/30/20 16 11:27 AM OPERATOR ASSISTANT I CEMENTING PATIENT IMAGES Choose the Image button to view related documents. Historical Provider LAB SURG PATH ORDERABLES Performing Organization Address [facility] Phon e Number [facility] NA documented in this encounter Visit Diagnoses Not on filedocumented in this encounter Additional Health Concerns Assessment Noted Time PHQ-9 Depression Total Score: 6 01/31/2015 12:28 PM CD T documented as of this encounter
--- OUTSIDE RECORDS SUMMARY | 2022-05-28 07:26 | XMS_ITS | Encounter Summary ---
:1945 Author Organization [facility] Address [address] [place] [address] Care Team Providers Name Role Phone Unavailable Primary Care Provider Unavailable Encounter Details Date Type Department Care Team Description 05/13/2016 Hospital Encounter HX [facility] Ailyn Bernal M.D. [address] [place] [address] (Wo rk) Social History Tobacco [...] do you attend rastafarian or Never 2021 mu-ism services? Do you [...] Bernal M.D. - 05/13/2016 2:26 PM CDT [id number] CHIEF COMPLAINT/REASON FOR VISIT Gross hematuria. HISTORY [...] Ailyn Bernal M.D./phong cc: Ewa Hinton M.D. [facility] [place] [address] Electronically Signed By: AILYN BERNAL MD On: 05/14/2016 07:30 AM Source: [facility] MHSDOLBEYNONRADSYS Document Id: [id number] documented in this encounter Procedure Notes Ailyn [...] BERNAL MD On: 05/13/2016 04:22 PM Source: [facility] POWERCHART Document Id: [id number] documented in this encounter Miscellaneous Notes Miscellaneous - Ailyn Bernal M.D. - 05/13/2016 4:19 PM CDT Ambulatory Patient Summary [facility] [address] [place] [id number] Visit Information Name: JONNATHAN COSTA [facility] Number: [id number] Current Date: 05/13/2016 16:19:32 [...] if you dont have one. Go to [email or web address] and click on Create Your Account. Then, follow the directions to complete the online form. Youll be asked for your [facility] number which you can find at the top of this document. Your Goals/Additional instructions: Source: [facility] POWERCHART Document Id: [id number] Miscellaneous - Ailyn Bernal M.D. - 05/13/2016 4:19 PM CDT Ambulatory Discharge Medication List [address] [id number] Visit Information Name: JONNATHAN COSTA [facility] Number: [id number] Visit Date: 05/13/2016 16:19:31 [...] MD Signed On:13-MAY-2016 16:19:29 Additional Information: Source: [facility] POWERCHART Document Id: [id number] Miscellaneous - Becky Hager, L.P.N. - 05/13/2016 2:31 PM CDT Adult Powder Mixer Intake/History Adult Powder Mixer Intake/History Entered On: 05/13/2016 14:33 CDT Performed [...] Preferred Communication Mode : Verbal Languages : Turkmen Is Patient Female and 13-50 no hysterectomy [...] Tobacco Last Use/Year : 1982 [facility] - 05/13/2016 14:31 CDT Caffeine Use Grid Caffeine Use : Current Type : Chocolate, Coffee, Soft drinks Frequency : Daily [facility] - 05/13/2016 14:31 CDT Recreational Drug Use Grid Drug Use : None [facility] - 05/13/2016 14:31 CDT Source: [facility] [employer] Document Id: [id number] CDT!35 documented in this encounter Plan of [...] Received Time / Laterality Volume 05/22/2016 Narrative [facility] - 05/24/20 16 11:07 AM CDT Historical Provider LAB SURG PATH ORDERABLES Performing Organization Address City/[facility]/ZIP Code Phon e Number [facility] NA Pathology Surgical Pathology (05/22/2016 12:00 AM CDT) Specimen (Source) Anatomical Location Collection Method / Collectio n Time Received Time / Laterality Volume 05/22/2016 Narrative [facility] - 05/24/20 16 11:07 AM CDT PATIENT IMAGES Choose the Image button to view related documents. Historical Provider LAB SURG PATH ORDERABLES Performing Organization Address City/State/ZIP Code Phon e Number [facility] NA documented in this encounter Visit Diagnoses Not on filedocumented in this encounter Additional Health Concerns Assessment Noted Time PHQ-9 Depression Total Score: 6 01/31/2015 12:28 PM CD T documented as of this encounter
--- OUTSIDE RECORDS SUMMARY | 2022-05-28 07:26 | XMS_ITS | Encounter Summary ---
:1945 Author Organization [facility] Address [address] [place] [address] Care Team Providers Name Role Phone Unavailable Primary Care Provider Unavailable Encounter Details Date Type Department Care Team Description 05/09/2016 Hospital Encounter HX NO MAPPING Virginia Bernal M.D. [address] [place], [place] [phone] (Wo rk) Social History [...]
--- OUTSIDE RECORDS SUMMARY | 2022-05-28 07:26 | XMS_ITS | Encounter Summary ---
:1945 Author Organization [facility] Address [address] [place] [address] Care Team Providers Name Role Phone Unavailable Primary Care Provider Unavailable Encounter Details Date Type Department Care Team Description 11/12/2016 Hospital Encounter [facility]X [facility] Ronda Valladares APRN, C.N.P., M.S.N. [address] [place] [address] (Wo rk) Social History Tobacco Use Types [...] do you attend rastafari or Never 2021 mosque services? Do you [...] Comments Blood Pressure 152/70 11/12/2016 1:46 PM BACKSIDE GRINDER Pulse 85 11/12/2016 1:46 PM BACKSIDE GRINDER Temperature - - Respiratory Rate - - Oxygen Saturation - - Inhaled Oxygen Concentration - - Weight 112 kg (246 lb 11.1 oz) 11/12/2016 1:46 PM BACKSIDE GRINDER Height - - Body Mass Index 31 10/14/2016 1:59 PM BACKSIDE GRINDER documented in this encounter Medications at Time [...] Brock P.A.-C. - 11/12/2016 1:28 PM CST [id number] CHIEF COMPLAINT/REASON FOR VISIT Suspect boil on [...] BROCK PA-C On: 11/13/2016 11:35 AM Source: [facility] MHSDOLBEYNONRADSYS Document Id: [id number] SIDE GRINDER documented in this encounter Miscellaneous Notes Miscellaneous - Dong Brock P.A.-C. - 11/12/2016 2:05 PM CST Ambulatory Patient Summary [place] [id number] [place] [address] [id number] Visit Information Name: BETH COSTA [facility] Number: [id number] Current Date: 11/12/2016 14:05:57 Physicians [...] hours x 7 day(s) New Routed to [address] [address] clopidogrel (Plavix 75 mg oral tablet) 1 [...] if you dont have one. Go to [email or web address] and click on Create Your Account. Then, follow the directions to complete the online form. Youll be asked for your [facility] number which you can find at the top of this document. Your Goals/Additional instructions: Source: [facility] POWERCHART Document Id: [id number] SIDE GRINDER Miscellaneous - Dong Brock P.A.-C. - 11/12/2016 2:05 PM CST Ambulatory Discharge Medication List [facility] [address] [place] [id number] Visit Information Name: BETH COSTA [facility] Number: [id number] Current Date: 11/12/2016 14:05:56 Attending [...] hours x 7 day(s) New Routed to [address] [address] clopidogrel (Plavix 75 mg oral [...] PA-C Signed On:12-NOV-2016 14:05:54 Additional Information: [facility] Document Id: [id number] SIDE GRINDER Miscellaneous - Debbie Estevez L.P.N. 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 [employer] Teacher Intake/History Entered On: 11/12/2016 13:49 BACKSIDE GRINDER Performed On: 11/12/2016 13:46 BACKSIDE GRINDER by DEBBIE ESTEVEZ WIRE TWISTER Intake Chief Complaint : suspects boil on [...] Clinic : 111.9 kg IRENE DEBBIE S [facility] - 11/12/2016 13:46 BACKSIDE GRINDER General Info Information Given By : Patient Preferred Communication Mode : Verbal Languages : Hungarian Is Patient Female and 13-50 no hysterectomy : No DEBBIE ESTEVEZ [facility] - 11/12/2016 13:46 BACKSIDE GRINDER Subjective Pain Symptoms : No DEBBIE ESTEVEZ LPN - 11/12/2016 13:46 BACKSIDE GRINDER Dependent Habits Exposure to Tobacco Smoke : Other: quit in 1982 Smoking Status : Former smoker Tobacco 2A : Yes Tobacco Use/Currently Using : No Tobacco Use/Last 30 Days : No Tobacco Use/Last 12 months : No Tobacco Last Use/Year : 1982 DEBBIE ESTEVEZ [facility] - 11/12/2016 13:46 BACKSIDE GRINDER Caffeine Use Grid Caffeine Use : Current Type : Chocolate, Coffee, Soft drinks Frequency : Daily DEBBIE ESTEVEZ LPN - 11/12/2016 13:46 BACKSIDE GRINDER Recreational Drug Use Grid Drug Use : None DEBBIE ESTEVEZ WIRE TWISTER - 11/12/2016 13:46 BACKSIDE GRINDER [facility] Document Id: [id number] BACKSIDE GRINDER!36 SIDE GRINDER documented in this encounter Plan of Treatment Not on filedocumented as of this encounter Visit Diagnoses Not on filedocumented in this encounter Additional Health Concerns Assessment Noted Time PHQ-9 Depression Total Score: 6 01/31/2015 12:28 PM CD T documented as of this encounter
--- OUTSIDE RECORDS SUMMARY | 2022-05-28 07:26 | XMS_ITS | Encounter Summary ---
:1945 Author Organization [facility] Address [address] [place] [address] Care Team Providers Name Role Phone Unavailable Primary Care Provider Unavailable Encounter Details Date Type Department Care Team Description 08/27/2016 Hospital Encounter HX [facility] FAMILYPRA Ewa Forbes M.D. [address] [place], [place] [phone] (Wo rk) Social History [...] do you attend moravian or Never 2021 moravian services? Do you [...] Comments Blood Pressure 132/80 08/27/2016 2:28 PM ROLL SLICING MACHINE TENDER Pulse 84 08/27/2016 2:28 PM ROLL SLICING MACHINE TENDER Temperature - - Respiratory Rate 20 08/27/2016 2:28 PM ROLL SLICING MACHINE TENDER Oxygen Saturation - - Inhaled Oxygen Concentration - - Weight 109 kg (240 lb 8.4 oz) 08/27/2016 2:28 PM ROLL SLICING MACHINE TENDER Height 189 cm (6' 2.41) 08/27/2016 2:28 PM ROLL SLICING MACHINE TENDER Body Mass Index 30.54 08/27/2016 2:28 PM ROLL SLICING MACHINE TENDER documented in this encounter Medications at Time [...] Weiss M.D. - 08/27/2016 2:12 PM CST [id number] CHIEF COMPLAINT/ REASON FOR VISIT Recheck URI [...] Status post left cataract surgery at the [place]. 8. Tonsillectomy. 9. Obstructive sleep apnea, prescribed [...] on 08/28/[address] Bernal at the [facility]. 2. Type II diabetes mellitus. I recommended [...] behalf by Lulu Roldan, a trained medical concierge. The creation of this record is based on the scribe's personal observations and the provider's statements to them. This document has been christie cked and approved by the attending provider. Ewa Hinton M.D./livia Electronically Signed By: EWA WEISS MD On: 09/04/2016 08:22 AM Source: [facility] MHSDOLBEYNJESSIESYS Document Id: [id number] SLICING MACHINE TENDER documented in this encounter Miscellaneous Notes Miscellaneous - Sugey Polanco C.M.A. - 08/27/2016 2:28 PM CST Adult Bakery Technician Intake/History Adult Bakery Technician Intake/History Entered On: 08/27/2016 14:31 ROLL SLICING MACHINE TENDER Performed On: 08/27/2016 14:28 ROLL SLICING MACHINE TENDER by SUGEY POLANCO [facility] Intake Chief Complaint : 1: [...] Mass Index : 30.54 kg/m2 SUGEY POLANCO [facility] - 08/27/2016 14:28 ROLL SLICING MACHINE TENDER General Info Information Given By : Patient Languages : Ukrainian Is Patient Female and 13-50 no hysterectomy : No SUGEY POLANCO CMA - 08/27/2016 14:28 ROLL SLICING MACHINE TENDER Subjective Pain Symptoms : No SUGEY POLANCO CMA - 08/27/2016 14:28 ROLL SLICING MACHINE TENDER Dependent Habits Exposure to Tobacco Smoke : Other: quit in 1982 Smoking Status : Former smoker Tobacco 2A : Yes Tobacco Use/Currently Using : No Tobacco Use/Last 30 Days : No Tobacco Use/Last 12 months : No Tobacco Last Use/Year : 1982 SUGEY POLANCO [facility] - 08/27/2016 14:28 ROLL SLICING MACHINE TENDER Caffeine Use Grid Caffeine Use : Current Type : Chocolate, Coffee, Soft drinks Frequency : Daily SUGEY POLANCO [facility] - 08/27/2016 14:28 ROLL SLICING MACHINE TENDER Recreational Drug Use Grid Drug Use : None SUGEY POLANCO [facility] - 08/27/2016 14:28 ROLL SLICING MACHINE TENDER Source: [facility] IRI Document Id: [id number] ROLL SLICING MACHINE TENDER!42 SLICING MACHINE TENDER documented in this encounter Plan of Treatment Not on filedocumented as of this encounter Visit Diagnoses Not on filedocumented in this encounter Additional Health Concerns Assessment Noted Time PHQ-9 Depression Total Score: 6 01/31/2015 12:28 PM CD T documented as of this encounter
--- OUTSIDE RECORDS SUMMARY | 2022-05-28 07:26 | XMS_ITS | Encounter Summary ---
:1945 Author Organization [facility] Address [address] [place] [address] Care Team Providers Name Role Phone Unavailable Primary Care Provider Unavailable Encounter Details Date Type Department Care Team Description 05/28/2016 Hospital Encounter HX [facility] FAMILYPRA Ewa Moya i, M.D. [address] [place] [address] (Wo rk) Social History Tobacco [...] do you attend gnosticist or Never 2021 sikh services? Do you [...] Weiss M.D. - 05/28/2016 3:15 PM CDT [id number] CHIEF COMPLAINT/ REASON FOR VISIT Low blood pressure. HISTORY OF PRESENT ILLNESS Jonnathan is a 70 year old male who presents to the clinic today for low blood pressure. When he was seen yesterday at the [facility] for catheter removal he was noted [...] by Lulu Roldan, a trained medical transcription radiology. The creation of this record is based on the scribe's personal observations and the provider's statements to them. This document has been christie cked and approved by the attending provider. Ewa Hinton M.D./livia Electronically Signed By: EWA WEISS MD On: 06/29/2016 11:54 AM Source: [facility] MHSDOLBEYNONRADSYS Document Id: [id number] documented in this encounter Miscellaneous Notes Miscellaneous - Ewa Weiss M.D. - 05/28/2016 5:31 PM CDT Ambulatory Patient Summary [address] [id number] Visit Information Name: JONNATHAN COSTA [facility] Number: [id number] Current Date: 05/28/2016 17:31:20 Physicians [...] Appointments Date Time Location Provider 08/19/2016 08:15 [facility] FamilyPra Ewa Roy MD 08/29/2016 08:15 [...] dont have one. Go to [email or web address] and click on Create Your Account. Then, follow the directions to complete the online form. Youll be asked for your [facility] number which you can find at the top of this document. Your Goals/Additional instructions: Source: [facility] POWERCHART Document Id: [id number] Miscellaneous - Ewa Weiss M.D. - 05/28/2016 5:31 PM CDT Ambulatory Discharge Medication List [address] [id number] Visit Information Name: JONNATHAN COSTA [facility] Number: [id number] Visit Date: 05/28/2016 17:31:20 Attending [...] MD Signed On:28-MAY-2016 17:31:18 Additional Information: Source: [facility] POWERCHART Document Id: [id number] Miscellaneous - HamiltonMatri arana, L.P.N. - 05/28/2016 3:37 PM CDT Adult Back Stayer Intake/History Adult Back Stayer Intake/History Entered On: 05/28/2016 15:40 CDT Performed [...] Preferred Communication Mode : Verbal Languages : Romansh Is Patient Female and 13-50 no hysterectomy : No MARTI HAMILTON LPN - 05/28/2016 15:37 CDT Subjective Pain Symptoms : Yes MARTI HAMILTON LPN - 05/28/2016 15:37 CDT Pain Scale Pain Scale Verbal 0-10 : Open MARTI HAMILTON [facility] - 05/28/2016 15:37 CDT Pain Pain Assessment Grid Pain 1 Location : Bladder Laterality : Other: spasms Intensity : 5 MARTI HAMILTON MANAGER OF ENTERPRISE - 05/28/2016 15:37 CDT Dependent Habits Exposure [...] HAMILTON LPN - 05/28/2016 15:37 CDT [facility] Document Id: [id number] CDT!43 documented in this encounter Plan of Treatment Not on filedocumented as of this encounter Visit Diagnoses Not on filedocumented in this encounter Additional Health Concerns Assessment Noted Time PHQ-9 Depression Total Score: 6 01/31/2015 12:28 PM CD T documented as of this encounter
--- OUTSIDE RECORDS SUMMARY | 2022-05-28 07:26 | XMS_ITS | Encounter Summary ---
:1945 Author Organization [facility] Address [address] [place] [address] Care Team Providers Name Role Phone Unavailable Primary Care Provider Unavailable Encounter Details Date Type Department Care Team Description 08/29/2016 Hospital Encounter HX [facility] UR[facility] Prasanna Bernal M.D. [address] [place] [address] (Wo rk) Social History Tobacco [...] do you attend adventism or Never 2021 confucianism services? Do you [...]
--- OUTSIDE RECORDS SUMMARY | 2022-05-28 07:26 | XMS_ITS | Encounter Summary ---
:1945 Author Organization [facility] Address [address] [place] [address] Care Team Providers Name Role Phone Unavailable Primary Care Provider Unavailable Encounter Details Date Type Department Care Team Description 05/22/2016 Hospital Encounter HX NO MAPPING Virginia Bernal M.D. [address] [place], [place] [phone] (Wo rk) Social History [...] do you attend lutheran or Never 2021 advent services? Do you [...]
--- OUTSIDE RECORDS SUMMARY | 2022-05-28 07:26 | XMS_ITS | Encounter Summary ---
:1945 Author Organization [facility] Address [address] [place] [address] Care Team Providers Name Role Phone Unavailable Primary Care Provider Unavailable Encounter Details Date Type Department Care Team Description 05/09/2016 Hospital Encounter HX [facility] UROLOGY Ailyn Bernal M.D. [address] [place] [address] (Wo rk) Social History Tobacco [...] do you attend rastafari or Never 2021 faith services? Do you [...] Bernal M.D. - 05/09/2016 8:19 AM CDT [id number] CHIEF COMPLAINT/REASON FOR VISIT Gross hematuria. HISTORY [...] health clinics. He has beenexposed to Agent Poy[place]. He quit tobacco 35 years ago. Has [...] Ailyn Bernal M.D./phong cc: Piero Hinton M.D. [facility] [place] [place] [address] Electronically Signed By: AILYN BERNAL MD On: 05/13/2016 08:04 AM Source: [facility] MHSDOLBEYNONRADSYS Document Id: [id number] documented in this encounter Miscellaneous Notes Telephone [...] be from 1-3 p.m. From: NANO MILES ([facility] Finance Mgr) To: Neurology Nurse; Sent: 05/13/2016 08:04:58 CDT [...] scheduled for. He can be reached at [phone] or a [employer] phone [phone]. Patient is aware that Dr. Lala is [...] back cell phone number ( ) Source: [facility] POWERCHART Document Id: [id number] Miscellaneous - Raegan Rehman APRN, R.N. - [...] Result Name MBO Review Culture Urine Source: [facility] POWERCHART Document Id: [id number] Miscellaneous - Ailyn Bernal M.D. - 05/09/2016 1:00 PM CDT Ambulatory Patient Summary [address] [id number] Visit Information Name: BETH COSTA [facility] Number: [id number] Current Date: 05/09/2016 13:00:12 Physicians [...] if you dont have one. Go to [email or web address] and click on Create Your Account. Then, follow the directions to complete the online form. Youll be asked for your [facility] number which you can find at the top of this document. Your Goals/Additional instructions: Source: [facility] POWERCHART Document Id: [id number] Miscellaneous - Ailyn Bernal M.D. - 05/09/2016 1:00 PM CDT Ambulatory Discharge Medication List [address] [id number] Visit Information Name: BETH COSTA [facility] Number: [id number] Visit Date: 05/09/2016 13:00:11 Attending [...] MD Signed On:09-MAY-2016 12:54:11 Additional Information: Source: [facility] POWERCHART Document Id: [id number] Miscellaneous - Becky Hager L.P.N. - 05/09/2016 [...] HAGER LPN - 05/09/2016 9:20 CDT Source: [facility] [employer] Document Id: [id number] CDT!11 Carencellmaria e - Becky Hager L.P.N. - 05/09/2016 9:01 AM CDT Adult Lien Searcher Intake/History Adult Lien Searcher Intake/History Entered On: 05/09/2016 9:03 CDT Performed [...] ft 2 inch(es), 74 inch(es)) BECKY HAGER [facility] - 05/09/2016 9:01 CDT General Info Information Given By : Patient Preferred Communication Mode : Verbal Languages : Jamaican Is Patient Female and 13-50 no hysterectomy : No BECKY HAGER [facility] - 05/09/2016 9:01 CDT Subjective Pain Symptoms : No BECKY HAGER LPN - 05/09/2016 9:01 CDT Dependent Habits Exposure to Tobacco Smoke : Other: quit in 1982 Smoking Status : Former smoker Tobacco 2A : Yes Tobacco Use/Currently Using : No Tobacco Use/Last 30 Days : No Tobacco Use/Last 12 months : No Tobacco Last Use/Year : 1982 BECKY HAGER [facility] - 05/09/2016 9:01 CDT Caffeine Use Grid Caffeine Use : Current Type : Chocolate, Coffee, Soft drinks Frequency : Daily BECKY HAGER [facility] - 05/09/2016 9:01 CDT Recreational Drug Use Grid Drug Use : None BECKY HAGER [facility] - 05/09/2016 9:01 CDT Source: [facility] [employer] Document Id: [id number] CDT!34 documented in this encounter Plan of Treatment Not on filedocumented as of this encounter Procedures Procedure Name Priority Date/Time Associated Comments Diagnosis URINALYSIS WITH Routine 05/09/2016 9:45 AM Result s for this MICROSCOPIC CDT procedure are i n the results section. BACTERIAL CULTURE, Routine 05/09/2016 9:45 AM Res ults for this AEROBIC, URINE CDT procedure are in the results section. ZZPATHOLOGY NON-WIND FARM SUPPORT SPECIALIST Routine 05/09/2016 7:43 AM Re sults for this CYTOLOGY CDT procedure are i n the results section. documented in this encounter Results (ABNORMAL) Urinalysis, Complete, Includes Microscopic (05/09/2016 9:45 AM CDT) [facility] gist Method Time Signature HXUR WBC. None Seen None Seen POWERCHART HPF HXUR RBC. None Seen None Seen POWERCHART HPF Casts, Hyaline 1-3 (A) None Seen POWERCHART LPF HXUr Color Yellow Yellow POWERCHART Clarity Clear Clear POWERCHART Glucose Negative Negative POWERCHART HXBILIRUBIN Negative Negative POWERCHART Ketones, QL(U) Negative Negative POWERCHART Specific 1.017 1.001 - POWERCHART [place], POCT, U 1.035 pH, POCT, Urine 5.5 [...] (05/09/2016 9:45 AM CDT) [facility] Bacterial POWERCHART Culture, Aerobic, Urine HXFinal No growth POWERCHART Specimen (Source) Anatomical Collection Method Collection Time Re ceived Time Location / / Volume Laterality Urine, First 05/09/2016 9:45 AM Voided CDT Ailyn Bernal M.D. LAB MICROBIOLOGY - GENERAL O RDERABLES Performing Organization Address City/[facility]/ZIP Code Phon e Number POWERCHART ZZPATHOLOGY NON-WIND FARM SUPPORT SPECIALIST CYTOLOGY (05/09/2016 7:43 AM CDT) Specimen (Source) Anatomical Collection Method Collection Time Re ceived Time Location / / Volume Laterality 05/09/2016 7:43 AM CDT Narrative [facility] LAB - 05/10/2016 1:56 PM CDT [facility] [address] [place], [place] ??[address] Patient Name: BETH COSTA Patient ID #: [id number] Collected: 05/09/2016 Address: City/State/Zip: [address] [place], [place] ??[id number] Received: Reported: 05/10/2016 05/10/2016 Soc. Sec. #: ?/Age/Sex 1945 (Age: 70) ??M Physician(s): A REGIS Copy To: ? [facility] ?? [id number] [address] [place], ??[place] ??[address] CYTOPATHOLOGY NON-WIND FARM SUPPORT SPECIALIST REPORT FINAL CYTOLOGIC DIAGNOSIS Urine-VOIDED: DIAGNOSIS ATYPICAL UROTHELIAL CELLS CONSISTENT WIT H INFLAMMATION, CALCULUS, RECENT INSTRUMENTATION OR LOW GRADE PAPILLARY LESION. SATISFACTORY SPECIMEN FOR EVALUATION. Electronically Signed By [facility]/05/10/2016 Pato FARMER(ASCP) SPECIMEN(S) RECEIVED: Urine-VOIDED CLINICAL [...]
--- OUTSIDE RECORDS SUMMARY | 2022-05-28 07:26 | XMS_ITS | Encounter Summary ---
:1945 Author Organization [facility] Address [address] [place] [address] Care Team Providers Name Role Phone Unavailable Primary Care Provider Unavailable Encounter Details Date Type Department Care Team Description 08/19/2016 Hospital Encounter HX NO MAPPING Ewa Alejandro M.D. [address] [place], [place] [phone] (Wo rk) Social History [...] do you attend alevism or Never 2021 scientology services? Do you [...] Historical Provider Ser - 08/19/2016 11:59 PM CAP LINING MACHINE OPERATOR Coding Summary-Paper Based CODING DATE: 08/29/[address] [facility] STATUS: * Discharged to Home or [...] ROSE Date Saved: 08/29/2016 07:37 am Source: [employer] Document Id: [id number] documented in this encounter Plan of Treatment Not on filedocumented as of this encounter Visit Diagnoses Not on filedocumented in this encounter Additional Health Concerns Assessment Noted Time PHQ-9 Depression Total Score: 6 01/31/2015 12:28 PM CD T documented as of this encounter
--- OUTSIDE RECORDS SUMMARY | 2022-05-28 07:26 | XMS_ITS | Encounter Summary ---
:1945 Author Organization [facility] Address [address] [place] [address] Care Team Providers Name Role Phone Unavailable Primary Care Provider Unavailable Encounter Details Date Type Department Care Team Description 08/19/2016 Hospital Encounter HX [facility] FAMILYPRA Piero Forbes M.D. [address] [place], [place] [phone] (Wo rk) Social History [...] do you attend shinto or Never 2021 mosque services? Do you [...] Comments Blood Pressure 126/64 08/19/2016 8:22 AM RIVET THROWER Pulse 96 08/19/2016 8:22 AM RIVET THROWER Temperature - - Respiratory Rate 16 08/19/2016 8:22 AM RIVET THROWER Oxygen Saturation - - Inhaled Oxygen Concentration - - Weight 107 kg (235 lb 10.8 oz) 08/19/2016 8:22 AM RIVET THROWER Height 189 cm (6' 2.41) 08/19/2016 8:22 AM RIVET THROWER Body Mass Index 29.93 08/19/2016 8:22 AM RIVET THROWER documented in this encounter Medications at Time [...] Weiss M.D. - 08/19/2016 8:06 AM CST [id number] Document Contains Addenda CHIEF COMPLAINT/ REASON FOR VISIT Proposed surgery date: 08/28/2016. Surgeon: Dr. Prasanna Luevano. Proposed surgery: Greenlight photo selective vaporization of the prostate. Location: [facility]. HISTORY OF PRESENT ILLNESS Beth is [...] got full again. Beth was seen at [facility] in [place] on 08/12/2016 when he was treated for a URI with Azithromycin. He feels that he has improved but continues to have a productive cough. 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 Beth has been diagnosed with asthma and [...] diabetes. He has labs done at the ID. Jelena last A1C was on 07/17/2016 with [...] dysfunction. 6. Pulmonary symptomatology, diagnosis at the ID unclear, but probably some degree of COPD. 7. Status post left cataract surgery at the ID. 8. Tonsillectomy. 9. Obstructive sleep apnea, prescribed [...] smoke. 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 FAMILY HISTORY Mother had hypertension. There is no colon or prostate cancer in the family. There is no diabetes. Father had an NH at age 76. Asthma and mental illness [...] Albuterol inhaler, as above. Will refer to [facility] for further evaluation. 5. Follow up. The patient will contact the clinic with any new or worsening symptoms. ADDENDUM 08/27/2016: Mr. Costa was re-evaluated today in clinic regarding his recent URI; he is back to his baseline. Heis cleared up to and including general anesthesia and may proceed with surgery as scheduled on 08/28/[address] Luevano at the [facility]. This document serves as a record of services personally performed by Piero Roy MD. It was created on their behalf by Lulu Roldan, a trained medical technicians. The creation of this record is based on the scribe's personal observations and the provider's statements to them. This document has been christie cked and approved by the attending provider. Piero Hinton M.D./livia cc: [place] [address] Electronically Signed By: PIERO WEISS MD On: 09/25/2016 11:39 PM Source: [facility] MHSDOLBEYNONRADSYS Document Id: [id number] T THROWER documented in this encounter Miscellaneous Notes Telephone Encounter - Conversion, Historical Provider Ser - 08/27/2016 8:47 AM CST *Phone Message/Dr. Piero Roy Document Contains Addenda Addendum by JACQUIE HAMILTON LPN on August 27, 2016 13:03:58 RIVET THROWER patient added to todays schedule forfinal clearance for surgical proceedure scheduled for 08/28/2016 Addendum by JACQUIE HAMILTON LPN on August 27, 2016 9:03 RIVET THROWER Caller is: ( _ ) Patient ( _ ) Parent ( _ ) Spouse ( _ ) Child ( x ) Other: _jimmie Call back telephone number: _ Reason for Call: -_patient surgery is scheduled for tomorrow 08/28/2016 and patient needs final clearance for proceedure and insulin instructions for tonight Chief Complaint: _[facility] needs final clearance added to h&p due to uri patient had at last appointmentand fax to jimmie at [facility] museum service scheduler moriah Disposition of Call/Coordination of Care: [...] day Callers preferred language: _ Was an switchboard operator receptionist used for this call? _ Other ( --_ ) Modified by and Electronically Signed by: JACQUIE HAMILTON LPN On: 08/27/2016 09:03 AM From: MCKINLEY MOSQUERA ([facility] Director Of Rehabilitation) To: LAWSON Roy Nurse; Sent: 08/27/2016 08:47:46 RIVET THROWER Subject: *Phone Message/Dr. Piero Roy Caller is: ( ) Patient ( ) Mother ( ) Father ( ) Spouse ( ) Daughter ( ) Son ( ) Pharmacy ( x) Other: Jimmie from [facility] surgery scheduling Physician: Dr. Piero Roy Patient MRN #: Reason for Call: Message: Jimmie needs to speak to someone regarding this patients H & P. She needs Dr. Roy to add an adendum regarding a follow up appointment that was mentioned in the dictation. Please call her back at [phone] [facility]. Advice/Action: Source used: ( ) Verbalizes understanding [...] back cell phone number ( ) Source: [facility] POWERCHART Document Id: [id number] T THROWER Miscellaneous - Piero Weiss M.D. - 08/20/2016 2:06 PM RIVET THROWER Ambulatory Patient Summary [facility] [address] [place] [id number] Visit Information Name: BETH COSTA SERGIO [facility] Number: [id number] Current Date: 08/20/2016 14:06:33 [...] or shortness of breath. New Routed to [facility] [address] [place] [address] atorvastatin (atorvastatin 40 mg oral tablet) 1 [...] you dont have one. Go to [email or web address] and click on Create Your Account. Then, follow the directions to complete the online form. Youll be asked for your [facility] number which you can find at the top of this document. Your Goals/Additional instructions: Begin taking the albuterol inhaler 2 puffs at least twice daily.Stop taking the Plavix one week prior to the scheduled procedure. Source: [facility] POWERCHART Document Id: [id number] T THROWER Miscellaneous - Piero Weiss M.D. - 08/20/2016 2:06 PM RIVET THROWER Ambulatory Discharge Medication List [address] [id number] Visit Information Name: BETH COSTA [facility] Number: [id number] Current Date: 08/20/2016 14:06:32 [...] or shortness of breath. New Routed to [facility] [address] [place] [address] atorvastatin (atorvastatin 40 mg oral tablet) 1 [...] MD Signed On:20-AUG-2016 14:06:28 Additional Information: Source: [facility] YumZingCHART Document Id: [id number] T THROWER Miscellaneous - Piero Weiss M.D. - 08/19/2016 9:06 AM RIVET THROWER Addendum by JACQUIE HAMILTON LPN on August 19, 2016 12:53:52 RIVET THROWER referal completed From: PIERO WEISS MD To: LAWSON Roy Nurse; Sent: 08/19/2016 09:06:40 RIVET THROWER Please arrange for pulmonary consult at [facility] to evaluate asthma. Source: [facility] WSP Global Document Id: [id number] Miscellmaria e - Jacquie Hamilton, L.P.N. - 08/19/2016 8:25 AM CST Obstructive Sleep Apnea Obstructive Sleep Apnea Entered On: 08/19/2016 8:26 RIVET THROWER Performed On: 08/19/2016 8:25 RIVET THROWER by JACQUIE HAMILTON LPN AGNIESZKA Screening Known Obstructive Sleep Apnea : Patient diagnosed with AGNIESZKA; DOES NOT USE sleep machine AGNIESZKA Score : No qualifying data available. AGNIESZKA Results : No qualifying data available. JACQUIE HAMILTON LPN - 08/19/2016 8:25 RIVET THROWER Source: [facility] YumZingCHART Document Id: [id number] RIVET THROWER!5 T THROWER Miscellaneous - Jacquie Hamilton L.P.N. - 08/19/2016 8:22 AM CST Adult Boxing Trainer Intake/History Adult Boxing Trainer Intake/History Entered On: 08/19/2016 8:25 RIVET THROWER Performed On: 08/19/2016 8:22 RIVET THROWER by JACQUIE HAMILTON SHOE PACKER Intake Chief Complaint : pre op physical for green light proceedure to be completed on 08/28/[address] luevano at [facility] Temperature Core : 36.4 DegC(Converted to: 97.5 [...] 44 cm(Converted to: 17 inch(es)) JACQUIE HAMILTON SHOE PACKER - 08/19/2016 8:22 RIVET THROWER General Info Information Given By : Patient Preferred Communication Mode : Verbal Languages : Hungarian Is Patient Female and 13-50 no hysterectomy : No JACQUIE HAMILTON LPN - 08/19/2016 8:22 RIVET THROWER Subjective Pain Symptoms : Yes JACQUIE HAMILTON LPN - 08/19/2016 8:22 RIVET THROWER Pain Scale Pain Scale Verbal 0-10 : Open JACQUIE HAMILTON LPN - 08/19/2016 8:22 RIVET THROWER Pain Pain Assessment Grid Pain 1 Location : Abdomen Laterality : Other: lower abdomen cramping Intensity : 1 JACQUIE HAMILTON LPN - 08/19/2016 8:22 RIVET THROWER Dependent Habits Exposure to Tobacco Smoke : Other: quit in 1982 Smoking Status : Former smoker Tobacco 2A : Yes Tobacco Use/Currently Using : No Tobacco Use/Last 30 Days : No Tobacco Use/Last 12 months : No Tobacco Last Use/Year : 1982 JACQUIE HAMILTON LPN - 08/19/2016 8:22 RIVET THROWER Caffeine Use Grid Caffeine Use : Current Type : Chocolate, Coffee, Soft drinks Frequency : Daily JACQUIE HAMILTON SHOE PACKER - 08/19/2016 8:22 RIVET THROWER Recreational Drug Use Grid Drug Use : None JACQUIE HAMILTON SHOE PACKER - 08/19/2016 8:22 RIVET THROWER Source: [facility] POWERCHART Document Id: [id number] RIVET THROWER!52 T THROWER documented in this encounter Plan of Treatment Not on filedocumented as of this encounter Procedures Procedure Name Priority Date/Time Associated Comments Diagnosis ALBUMIN, RANDOM, U Routine 08/19/2016 9:13 AM Res ults for this RIVET THROWER procedure are i n the results section. URINALYSIS WITH Routine 08/19/2016 9:13 AM Result s for this MICROSCOPIC RIVET THROWER procedure are i n the results section. BACTERIAL CULTURE, Routine 08/19/2016 9:13 AM Res ults for this AEROBIC, URINE RIVET THROWER procedure are in the results section. documented in this encounter Results (ABNORMAL) Microalbumin, Random, Urine (08/19/2016 9:13 AM RIVET THROWER) athologist Signature Creatinine, 113 40 - 278 POWERCHART Random, U MGDL HXU Albumin % 49.3 MGL POWERCHART Albumin/Creatin 44 (H) 0 - 17 MGG POWERCHART ine Ratio Specimen (Source) Anatomical Collection Method Collection Time Re ceived Time Location / / Volume Laterality Urine 08/19/2016 9:13 AM RIVET THROWER Piero Alejandro M.D. LAB URINE ORDERABLES Performing Organization Address City/State/ZIP Code Phon e Number POWERCHART (ABNORMAL) Urinalysis, Complete, Includes Microscopic (08/19/2016 9:13 AM RIVET THROWER) athologist Signature Clarity Clear Clear POWERCHART HXUr Color Yellow Colorless POWERCHART Specific 1.020 POWERCHART [place], POCT, U Comment: Reference Range Specific [place]: 1.000-1.035 pH, POCT, Urine 5.5 <5.0 POWERCHART [...] Laterality Urine, First 08/19/2016 9:13 AM Voided RIVET THROWER Piero Alejandro M.D. LAB URINE ORDERABLES Performing Organization Address City/State/ZIP Code Phon e Number POWERCHART Bacterial Culture, Aerobic, Urine (08/19/2016 9:13 AM RIVET THROWER) Analysis Performed At Patho logist Time Signature Bacterial POWERCHART Culture, Aerobic, Urine HXFinal No growth POWERCHART Specimen (Source) Anatomical Collection Method Collection Time Re ceived Time Location / / Volume Laterality Urine, First 08/19/2016 9:13 AM Voided RIVET THROWER Piero Alejandro M.D. LAB MICROBIOLOGY - GEN ERAL ORDERABLES Performing Organization Address City/State/ZIP Code Phon e Number POWERCHART documented in this encounter Visit Diagnoses Not on filedocumented in this encounter Additional Health Concerns Assessment Noted Time PHQ-9 Depression Total Score: 6 01/31/2015 12:28 PM CD T documented as of this encounter
--- OUTSIDE RECORDS SUMMARY | 2022-05-28 07:26 | XMS_ITS | Encounter Summary ---
:1945 Author Organization [facility] Address [address] [place] [address] Care Team Providers Name Role Phone Unavailable Primary Care Provider Unavailable Encounter Details Date Type Department Care Team Description 05/08/2016 Hospital Encounter HX [facility] FAMILYPRA Piero Moya i, M.D. [address] [place] [phone] (Wo rk) Social History Tobacco [...] do you attend restoration or Never 2021 buddhism services? Do you [...] Weiss M.D. - 05/08/2016 12:42 PM CDT [id number] CHIEF COMPLAINT/ REASON FOR VISIT Follow up [...] kidney function improved. He is also on retirement anticoagulation. His CT did show marked prostate [...] numerous inhalers and the doctor at the [facility] suggested using Prednisone. He was exposure to Agent [place] while in the service. He states that [...] dysfunction. 6. Pulmonary symptomatology, diagnosis at the [facility] unclear, [...] behalf by Karen Givens, a trained medical device sales consultant. The creation of this record is based on the scribe's personal observations and the provider's statements to them. This document has been ch ecked and approved by the attending provider. Piero Hinton M.D./ Electronically Signed By: PIERO WEISS MD On: 05/11/2016 12:01 PM Source: [facility] MHSDOLBEYNONRADSYS Document Id: [id number] documented in this encounter Miscellaneous Notes Miscellaneous - Piero Weiss M.D. - 05/11/2016 11:44 AM CDT Ambulatory Patient Summary [address] [id number] Visit Information Name: JONNATHAN COSTA [facility] Number: [id number] Current Date: 05/11/2016 11:44:18 Physicians [...] Appointments Date Time Location Provider 05/13/2016 14:30 [facility] Urology Prasanna Luevano MD Attention: Contact your [...] if you dont have one. Go to [email or web address] and click on Create Your Account. Then, follow the directions to complete the online form. Youll be asked for your [facility] number which you can find at the top of this document. Your Goals/Additional instructions: Source: [facility] POWERCHART Document Id: [id number] Miscellaneous - Piero Weiss M.D. - 05/11/2016 11:44 AM CDT Ambulatory Discharge Medication List [address] [id number] Visit Information Name: JONNATHAN COSTA [facility] Number: [id number] Visit Date: 05/11/2016 11:44:16 Attending [...] MD Signed On:11-MAY-2016 11:44:12 Additional Information: Source: [facility] POWERCHART Document Id: [id number] Miscellaneous - Marti Hamilton, L.P.N. - 05/08/2016 [...] Soft drinks Frequency : Daily MARTI HAMILTON [employer]IMARY SCHOOL TEACHER - 05/08/2016 13:03 CDT Recreational Drug Use Grid Drug Use : None MARTI HAMILTON LPN - 05/08/2016 13:03 CDT AUDIT Tool How Often Do You Have A Drink : Monthly or less How Many Drinks in a Day When Drinking : 1 or 2 Six or More Drinks On One Occassion : Never Audit Phase 1 Score : 1 MARTI HAMILTON [employer]CHO[employer] TEACHER - 05/08/2016 13:03 CDT Psychosocial Domestic Abuse Concerns : None Behavioral Health Screen/Safety Assmt : No Protestant Preference : Unknown MARTI HAMILTON [employer] TEACHER - 05/08/2016 13:03 CDT Advance Directive Advanced Directives : No Advance Directive Additional Information : No MARTI HAMILTON [employer]CHO[employer] TEACHER - 05/08/2016 13:03 CDT Educ Needs Learning Style Preference Adult Grid Patient : Demonstration, Printed materials, Verbal explanation Family : Demonstration, Printed materials, Verbal explanation MARTI HAMILTON LPN - 05/08/2016 13:03 CDT Source: [employer] Document Id: [id number] CDT!47 Miscellaneous - Marti Hamilton, L.P.N. - 05/08/2016 1:00 PM CDT Adult Stone Hand Intake/History Adult Stone Hand Intake/History Entered On: 05/08/2016 13:03 CDT Performed On: 05/08/2016 13:00 CDT by MARTI HAMILTON [employer] S[employer] TEACHER Intake Chief Complaint : review test results [...] 13-50 no hysterectomy : No MARTI HAMILTON [facility] - 05/08/2016 13:00 CDT Subjective Pain Symptoms : No MARTI HAMILTON [employer]CHO[employer] TEACHER - 05/08/2016 13:00 CDT Dependent Habits Exposure to Tobacco Smoke : Other: quit in 1982 Smoking Status : Former smoker Tobacco 2A : Yes Tobacco Use/Currently Using : No Tobacco Use/Last 30 Days : No Tobacco Use/Last 12 months : No Tobacco Last Use/Year : 1982 MARTI HAMILTON [facility] - 05/08/2016 13:00 CDT Caffeine Use Grid Caffeine Use : Current Type : Coffee Frequency : Daily MARTI HAMILTON [facility] - 05/08/2016 13:00 CDT Recreational Drug Use Grid Drug Use : None MARTI HAMILTON LPN - 05/08/2016 13:00 CDT Source: [employer] Document Id: [id number] CDT!41 documented in this encounter Plan of Treatment Not on filedocumented as of this encounter Visit Diagnoses Not on filedocumented in this encounter Additional Health Concerns Assessment Noted Time PHQ-9 Depression Total Score: 6 01/31/2015 12:28 PM CD T documented as of this encounter
--- OUTSIDE RECORDS SUMMARY | 2022-05-28 07:26 | XMS_ITS | Encounter Summary ---
:1945 Author Organization [facility] Address [address] [place] [address] Care Team Providers Name Role Phone Unavailable Primary Care Provider Unavailable Encounter Details Date Type Department Care Team Description 05/09/2016 Hospital Encounter HX NO MAPPING Virginia Bernal M.D. [address] [place], [place] [phone] (Wo rk) Social History [...] do you attend taoism or Never 2021 zoroastrianism services? Do you [...] Coding Summary-Paper Based CODING DATE: 05/20/2016 FINAL [facility] STATUS: * Discharged to Home or Self [...] TREVIZO Date Saved: 05/20/2016 10:14 am Source: [employer] Document Id: [id number] documented in this encounter Plan of Treatment Not on filedocumented as of this encounter Visit Diagnoses Not on filedocumented in this encounter Additional Health Concerns Assessment Noted Time PHQ-9 Depression Total Score: 6 01/31/2015 12:28 PM CD T documented as of this encounter
--- OUTSIDE RECORDS SUMMARY | 2022-05-28 07:26 | XMS_ITS | Encounter Summary ---
:1945 Author Organization [facility] Address [address] [place] [address] Care Team Providers Name Role Phone Unavailable Primary Care Provider Unavailable Encounter Details Date Type Department Care Team Description 11/07/2016 Hospital Encounter HX NO MAPPING Virginia Bernal M.D. [address] [place], [place] [phone] (Wo rk) Social History [...] do you attend adventist or Never 2021 anglican services? Do you [...]
--- OUTSIDE RECORDS SUMMARY | 2022-05-28 07:27 | XMS_ITS | Encounter Summary ---
:[address] [facility] Address [address] [place] [address] Care Team Providers Name Role Phone Unavailable Primary Care Provider Unavailable Encounter Details Date Type Department Care Team Description 05/01/2016 Hospital Encounter HX [facility] Ewa Grier M.D. [address] [place], [place] [phone] (Wo rk) Social History [...] do you attend confucianism or Never 2021 congregation services? Do you [...] (05/01/2016 4:12 PM CDT) Analysis Performed At [facility] Time Signature Leukocytes 6.1 3.5 - 10.5 POWERCHART X109L Erythrocytes 3.70 (L) 4.32 - POWERCHART 5.72 [id number] Hemoglobin 11.9 (L) 13.5 - POWERCHART 17.5 [...] (05/01/2016 4:12 PM CDT) Analysis Performed At [facility] Time Signature Sodium, S 137 135 - [...] MMOLL HXeGFR (MDRD) 43 (L) >=60 POWERCHART [id number] eGFR 52 (L) >=60 POWERCHART Black/ [id number] Burkinan Glucose 253 (H) 70 - 139 POWERCHART [...]
--- OUTSIDE RECORDS SUMMARY | 2022-05-28 07:27 | XMS_ITS | Encounter Summary ---
:1945 Author Organization [facility] Address [address] [place] [address] Care Team Providers Name Role Phone Unavailable Primary Care Provider Unavailable Encounter Details Date Type Department Care Team Description 04/19/2015 Hospital Encounter HX [facility] FAMILYPRA MyrMiesha felton, HOME RESTORATION SERVICE SUPERVISOR, C.N.P. [address] [place] [address] (Wo rk) Social History Tobacco [...] do you attend temple or Never 2021 holiness services? Do you [...] FAROOQ, C.N.P. - 04/19/2015 11:29 AM CDT [id number] CHIEF COMPLAINT/REASON FOR VISIT Diabetes neuropathy, here [...] neuropathy. Here for diabetes education. Please see patient educator intake form in the electronic medical record. Today 30 minutes was spent counseling and coordinating care including discussing diet, how to increase protein, eat healthy carbohydrates. We reviewed carbohydrate counting. He was given several handouts with information on diet and carbohydrate counting and recommendedservings per day. Petr Dial, ZULEYKA/aos Electronically Signed By: PETR DIAL CNP On: 04/20/2015 11:12 AM Source: [facility] MHSDOLBEYNDAVONS Document Id: [id number] documented in this encounter Nursing Notes Petr Dial APRN, C.N.P. - 04/19/2015 1:02 PM CDT Cooker Mechanic Intake (Adult) Cooker Mechanic Intake (Adult) Entered On: 04/19/2015 13:04 CDT [...] - 04/19/2015 13:02 CDT MIESHA DIALMaryana Strong [facility] - 04/19/2015 13:02 CDT PETR DIALTae [facility] - 04/19/2015 13:02 CDT Source: [facility] POWERCHART Document Id: [id number] CDT!36 Petr Dial APRN, C.N.P. - 04/19/2015 [...] that are unsaturated. ?? Talk to your pastry baker about safe sugar substitutes. ?? Avoid added [...] of Nutrition and Dietetics www.eatright.org ?? The [place] [employer] 613-441-3346 www.diabetes.org ?? [place] [address]. All rights reserved. This information is not intended as a substitute for professional medical care. Always follow your healthcare professional's instructions. This document has images extracted. Please consider using [employer] for all your patient education needs. Source: [employer] Document Id: [id number] documented in this encounter Miscellaneous Notes Miscellaneous [...] MCINTOSH LPN - 04/19/2015 11:44 CDT Source: [employer] Document Id: [id number] CDT!7 Miscellaneous - Petr Dial APRN C.N.P. - 04/19/2015 11:43 AM CDT Ambulatory Patient Summary [address] [id number] Visit Information Name: RENEEBETH HANSON [facility] Number: [id number] Current Date: 04/19/2015 11:43:45 [...] that are unsaturated. ?? Talk to your pastry baker about safe sugar substitutes. ?? Avoid added [...] of Nutrition and Dietetics www.eatright.org ?? The [place] [employer] 390-738-8682 www.diabetes.org ?? [address], [place] [address]. All rights reserved. This information is not [...] if you dont have one. Go to [email or web address] and click on Create Your Account. Then, follow the directions to complete the online form. Youll be asked for your [facility] number which you can find at the top of this document. Your Goals/Additional instructions: This document has images extracted. Please consider using [employer] for all your patient education needs. Source: [facility] POWERCHART Document Id: [id number] Miscellaneous - Petr Dial APRN, C.N.P. - 04/19/2015 11:43 AM CDT Ambulatory Discharge Medication List [address] [id number] Visit Information Name: BETH COSTA [facility] Number: [id number] Visit Date: 04/19/2015 11:43:43 [...] of emergency. Electronically Signed By: PETR DIAL MOTOR TEACHER Signed On:19-APR-2015 11:43:24 Additional Information: Source: [facility] POWERCHART Document Id: [id number] Miscellaneous - Vashti Mcintosh L.P.NMauro - 04/19/2015 11:42 AM CDT Adult Reflow Operator Intake/History Adult Reflow Operator Intake/History Entered On: 04/19/2015 11:44 CDT Performed [...] Weight Clinic : 110.8 kg VASHTI MCINTOSH COLLAR BASTER JUMPBASTING - 04/19/2015 11:42 CDT General Info Information Given By : Patient Preferred Communication Mode : Verbal Languages : Hebrew Is Patient Female and 13-50 no hysterectomy : No VASHTI MCINTOSH COLLAR BASTER JUMPBASTING - 04/19/2015 11:42 CDT Subjective Pain Symptoms : No VASHTI MCINTOSH COLLAR BASTER JUMPBASTING - 04/19/2015 11:42 CDT Dependent Habits Tobacco Use/Currently Using : No Exposure to Tobacco Smoke : Other: quit 40 years ago Smoking Status : Former smoker VASHTI MCINTOSH [facility] - 04/19/2015 11:42 CDT Tobacco Use Grid Type : Cigarettes VASHTI MCINTOSH [employer] - 04/19/2015 11:42 CDT Caffeine Use Grid Caffeine Use : Current Type : Coffee Frequency : Daily VASHTI MCINTOSH [facility] - 04/19/2015 11:42 CDT Recreational Drug Use Grid Drug Use : None VASHTI MCINTOSH COLL[employer]AST[employer] JUMPBASTING - 04/19/2015 11:42 CDT Source: [employer] Document Id: [id number] CDT!37 documented in this encounter Plan of Treatment Not on filedocumented as of this encounter Visit Diagnoses Not on filedocumented in this encounter Additional Health Concerns Assessment Noted Time PHQ-9 Depression Total Score: 6 01/31/2015 12:28 PM CD T documented as of this encounter
--- OUTSIDE RECORDS SUMMARY | 2022-05-28 07:27 | XMS_ITS | Encounter Summary ---
:1945 Author Organization [facility] Address [address] [place] [address] Care Team Providers Name Role Phone Unavailable Primary Care Provider Unavailable Encounter Details Date Type Department Care Team Description 11/22/2015 Hospital Encounter HX [facility] Ewa Marte M.D. [address] [place], [place] [phone] (Wo rk) Social History [...] do you attend restoration or Never 2021 sabianism services? Do you [...]
--- OUTSIDE RECORDS SUMMARY | 2022-05-28 07:27 | XMS_ITS | Encounter Summary ---
:1945 Author Organization [facility] Address [address] [place] [address] Care Team Providers Name Role Phone Unavailable Primary Care Provider Unavailable Encounter Details Date Type Department Care Team Description 08/02/2015 Hospital [facility] Ewa Grier M.D. [address] [place], [place] [phone] (Wo rk) Social History [...] do you attend catholic or Never 2021 alevism services? Do you [...] 7:28 AM Re sults for this HORMONE-SENSITIVE POLICE OR PATROL PARK OFFICER procedure are in (S-TSH) the results section. documented in this encounter Results (ABNORMAL) Thyroid-Stimulating Hormone-Sensitive (s-TSH) (08/02/2015 7:28 AM POLICE OR PATROL PARK OFFICER) P athologist Signature TSH 4.43 (H) 0.27 - POWERCHART (Thyrotropin) 4.20 MIUL Specimen (Source) Anatomical Collection Method Collection Time Re ceived Time Location / / Volume Laterality Blood 08/02/2015 7:28 AM POLICE OR [employer]ROL PARK OFFICER Ewa Alejandro M.D. LAB BLOOD ADD-ON Performing Organization Address City/State/ZIP Code Phon e Number POWERCHART documented in this encounter Visit Diagnoses Not on filedocumented in this encounter Additional Health Concerns Assessment Noted Time PHQ-9 Depression Total Score: 6 01/31/2015 12:28 PM CD T documented as of this encounter
--- OUTSIDE RECORDS SUMMARY | 2022-05-28 07:27 | XMS_ITS | Encounter Summary ---
:1945 Author Organization [facility] Address [address] [place] [address] Care Team Providers Name Role Phone Unavailable Primary Care Provider Unavailable Encounter Details Date Type Department Care Team Description 11/23/2015 Hospital Encounter HX [facility] NEUROLOGY Mari Lala M.D., M.P.H. [address] [place] [address] (Wo rk) Social History Tobacco [...] do you attend voodoo or Never 2021 buddhist services? Do you [...] Comments Blood Pressure 138/70 11/23/2015 2:15 PM CASHIER CHECKER Pulse 72 11/23/2015 2:15 PM CASHIER CHECKER Temperature - - Respiratory Rate - - Oxygen Saturation - - Inhaled Oxygen Concentration - - Weight 112 kg (245 lb 13 oz) 11/23/2015 2:15 PM CASHIER CHECKER Height - - Body Mass Index 30.56 [...] M.D., M.P.H. - 11/23/2015 1:14 PM CST [id number] CHIEF COMPLAINT/REASON FOR VISIT Stroke. HISTORY OF [...] MD MPH On: 11/24/2015 04:22 PM Source: [facility] Document Id: [id number] IER CHECKER documented in this encounter Miscellaneous Notes Miscellaneous - Francisca Lala M.D., M.P.H. - 11/29/2015 8:34 AM CST RE: *The Coding Query From: FRANCISCA LALA MD MPH To: LAUREL RIOS; Sent: 11/29/2015 08:34:59 CASHIER CHECKER Subject: RE: *The Coding Query Done, thanks and sorry From: LAUREL RIOS To: FRANCISCA LALA MD MPH; Sent: 11/28/2015 14:08:48 CASHIER CHECKER Subject: *The Coding Query Hello, Missing OV charges for the patient above. DOS: 11/23/2015 Please make sure to Uncheck the box, Save To Chart, so that this message is not saved into the patients chart when replying. Thank you, Laurel Rios, [facility], CMRS Revenue Recognition-Coding Source: [facility] [employer]umb[employer]CHART Document Id: [id number] Miscellaneous - Natalee Plunkett, L.P.N. - 11/23/2015 2:15 PM CST Adult Tractor Operator Battery Intake/History Adult Tractor Operator Battery Intake/History Entered On: 11/23/2015 14:21 CASHIER CHECKER Performed On: 11/23/2015 14:15 CASHIER CHECKER by NATALEE PLUNKETT LPN Intake Chief Complaint [...] kg NATALEE PLUNKETT LPN - 11/23/2015 14:15 CASHIER CHECKER General Info Information Given By : Patient, Spouse, Other: 's name is Diallo Languages : Albanian Is Patient Female and 13-50 no hysterectomy : No NATALEE PLUNKETT LPN - 11/23/2015 14:15 CASHIER CHECKER Subjective Pain Symptoms : No NATALEE PLUNKETT LPN - 11/23/2015 14:15 CASHIER CHECKER Dependent Habits Exposure to Tobacco Smoke : Other: quit 40 years ago Smoking Status : Former smoker Tobacco 2A : Yes Tobacco Use/Currently Using : No Tobacco Use/Last 30 Days : No Tobacco Use/Last 12 months : No NATALEE PLUNKETT LPN - 11/23/2015 14:15 CASHIER CHECKER Caffeine Use Grid Caffeine Use : Current Type : Coffee Frequency : Daily NATALEE PLUNKETT LPN - 11/23/2015 14:15 CASHIER CHECKER Recreational Drug Use Grid Drug Use : None NATALEE PLUNKETT LPN - 11/23/2015 14:15 CASHIER CHECKER [facility] Document Id: [id number] CASHIER CHECKER!33 IER CHECKER documented in this encounter Plan of Treatment Not on filedocumented as of this encounter Visit Diagnoses Not on filedocumented in this encounter Additional Health Concerns Assessment Noted Time PHQ-9 Depression Total Score: 6 01/31/2015 12:28 PM CD T documented as of this encounter
--- OUTSIDE RECORDS SUMMARY | 2022-05-28 07:27 | XMS_ITS | Encounter Summary ---
:1945 Author Organization [facility] Address [address] [place] [address] Care Team Providers Name Role Phone Unavailable Primary Care Provider Unavailable Encounter Details Date Type Department Care Team Description 11/06/2015 Hospital Encounter HX [facility] FB NURSE Piero Hong i, M.D. [address] [place] [address] (Wo rk) Social History Tobacco [...] do you attend mandaen or Never 2021 moravian services? Do you [...] Comments Blood Pressure 144/70 11/06/2015 11:00 AM BEHAVIORAL INTERVENTIONIST Pulse 90 11/06/2015 11:00 AM BEHAVIORAL INTERVENTIONIST Temperature - - Respiratory Rate - - [...] Piero Weiss M.D. - 11/09/2015 5:34 PM BEHAVIORAL INTERVENTIONIST Addendum by MARTI SANCHEZ LPN on 10 November 2015 16:39:05 BEHAVIORAL INTERVENTIONIST patient notified and images submitted to md for review Addendum by MARTI SANCHEZ LPN on 10 November 2015 08:26:40 BEHAVIORAL INTERVENTIONIST stress test completed of ekg part awaiting neucular images from [facility] From: PIERO WEISS MD To: LAWSON Roy Nurse; Sent: 11/09/2015 17:34:26 BEHAVIORAL INTERVENTIONIST Please let Jonnathan know that h is carotid ultrasound was normal and find out when his stress test is scheduled Source: [facility] POWERCHART Document Id: [id number] Electronically signed by Conversion, [facility] Crystalizer [id number] at 02/22/2017 10:00 AM CDT Miscellaneous - Erica Morgan, C.M.A. - 11/06/2015 11:16 AM CST *General Message From: ERICA MORGAN [facility] To: PIERO WEISS MD; Sent: 11/06/2015 11:16:41 BEHAVIORAL INTERVENTIONIST Subject: *General Message Patient was iin for B/P check today. B/P 145/67 Pulse 93 I waited three minutes and took B/P again. B/P 144/70 Pulse 90 Source: [facility] POWERCHART Document Id: [id number] Reji - Erica Morgan C.MMauroA. - 11/06/2015 11:00 AM CST Ambulatory Vitals Height Weight Ambulatory Vitals Height Weight Entered On: 11/06/2015 11:15 BEHAVIORAL INTERVENTIONIST Performed On: 11/06/2015 11:00 BEHAVIORAL INTERVENTIONIST by ERICA MORGAN CMA Vitals/Ht/Wt Peripheral Pulse Rate : 90 /min Systolic Blood Pressure : 144 mmHg (HI) Diastolic Blood Pressure : 70 mmHg NIBP Mean : 95 mmHg BP Location : Left upper extremity Blood Pressure Cuff Size : Regular ERICA MORGAN [facility] - 11/06/2015 11:14 BEHAVIORAL INTERVENTIONIST [facility] Document Id: [id number] BEHAVIORAL INTERVENTIONIST!8 VIORAL INTERVENTIONIST Carencellmaria e - Erica Morgan C.M.A. - 11/06/2015 10:44 AM CST Ambulatory Vitals Height Weight Ambulatory Vitals Height Weight Entered On: 11/06/2015 10:45 BEHAVIORAL INTERVENTIONIST Performed On: 11/06/2015 10:44 BEHAVIORAL INTERVENTIONIST by ERICA MORGAN CMA Vitals/Ht/Wt Peripheral Pulse Rate : 93 /min Systolic Blood Pressure : 145 mmHg (HI) Diastolic Blood Pressure : 67 mmHg NIBP Mean : 93 mmHg BP Location : Left upper extremity Blood Pressure Cuff Size : Regular ERICA MORGAN [facility] - 11/06/2015 10:44 BEHAVIORAL INTERVENTIONIST [facility] Document Id: [id number] BEHAVIORAL INTERVENTIONIST!8 VIORAL INTERVENTIONIST documented in this encounter Plan of Treatment Not on filedocumented as of this encounter Visit Diagnoses Not on filedocumented in this encounter Additional Health Concerns Assessment Noted Time PHQ-9 Depression Total Score: 6 01/31/2015 12:28 PM CD T documented as of this encounter
--- OUTSIDE RECORDS SUMMARY | 2022-05-28 07:27 | XMS_ITS | Encounter Summary ---
:1945 Author Organization [facility] Address [address] [place] [address] Care Team Providers Name Role Phone Unavailable Primary Care Provider Unavailable Encounter Details Date Type Department Care Team Description 02/09/2015 Hospital Encounter HX [facility] FB FAMILYPRA Piero Moya i, M.D. [address] [place] [address] (Wo rk) Social History Tobacco [...] do you attend voodoo or Never 2021 restoration services? Do you [...] Rojas M.D. - 02/09/2015 9:55 AM CDT [id number] CHIEF COMPLAINT/ REASON FOR VISIT Skin lesion [...] solution. Once adequate anesthesia was obtained, a Ruffin blade was used to shave the entire [...] by Maria Luisa Alonso, a trained medical clerical assistant. The creation of this record is basedon the scribe's personal observations and the provider's statements to them. This document has been c hecked and approved by the attending provider. Piero Hinton M.D./cam Electronically Signed By: PIERO ROJAS MD On: 05/22/2015 06:34 PM Source: [facility] MHSDOLBEYNONRADSYS Document Id: [id number] documented in this encounter Miscellaneous Notes Miscellaneous - Piero Rojas M.D. - 02/15/2015 5:46 PM CDT Addendum by BO CALDWELL on 16 Feb 2015 09:01:52 CDT Patient notified. From: PIERO ROJAS MD To: LAWSON Roy Nurse; Sent: 02/15/2015 17:46:53 CDT Please inform Mr. Duran that the skin lesion was benign. Source: [facility] Bench Document Id: [id number] Electronically signed by Karen [facility] Senior Premium Auditor [id number] at 02/23/2017 7:47 PM CDT Miscellaneous - Piero Rojas M.D. - 02/09/2015 4:54 PM CDT Ambulatory Patient Summary [address] [id number] Visit Information Name: BETH DURAN [facility] Number: [id number] Current Date: 02/09/2015 16:54:29 Physicians [...] nasal (fluticasone 50 mcg/inh nasal spray) 2 Jasper(s), Nostrils(Both), once a day gemfibrozil (gemfibrozil 600 [...] appointment detail needed. Your Goals/Additional instructions: Source: [facility] POWERCHART Document Id: [id number] Miscellaneous - Piero Rojas M.D. - 02/09/2015 4:54 PM CDT Ambulatory Discharge Medication List [address] [id number] Visit Information Name: BETH DURAN [facility] Number: [id number] Visit Date: 02/09/2015 16:54:27 Attending Provider: PIREO ROJAS MD Primary Care Provider: PIERO ROJAS [...] nasal (fluticasone 50 mcg/inh nasal spray) 2 Jasper(s), Nostrils(Both), once a day gemfibrozil (gemfibrozil 600 [...] MD Signed On:09-FEB-2015 16:52:46 Additional Information: Source: [facility] POWERCHART Document Id: [id number] Miscellaneous - Kitty Sexton, LMauroPMauroN. - 02/09/2015 10:12 AM CDT Adult Talent Sourcing Specialist Intake/History Adult Talent Sourcing Specialist Intake/History Entered On: 02/09/2015 10:17 CDT Performed [...] Information Given By : Patient Languages : Ethiopian Is Patient Female and 13-50 no hysterectomy [...] No KITTY SEXTON 02/09/2015 10:12 CDT [facility] Document Id: [id number] CDT!35 Miscellaneous - Piero Rojas M.D. - [...] the cholesterol panel in 8 weeks. Source: [facility] Document Id: [id number] documented in this encounter Plan of Treatment [...] LCM LAB - 02/13/2015 9:58 AM CDT [facility] in [address] [place] [address] Patient Name: BETH DURAN Patient ID #: [id number] Collected: 02/09/2015 Address: City/State/Zip: [address] [place] [address] ??[phone] Received: Reported: 02/10/2015 02/13/2015 Soc. Sec. #: ?/Age/Sex 1945 (Age: 69) ??M Physician(s): IRENA HINTON MD Copy To: ? 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 [facility]/02/13/2015 JOSE KHAN M.D. Report electronically released. Interpretation by JOSE KHAN M.D. SPECIMEN(S) RECEIVED: LEFT FOREARM LESION GROSS DESCRIPTION: Consists of a 3 mm skin fragment. Carlos OLMSTEAD, one cassette. ([id number]) DDG/FELICITY/02/10/2015 MICROSCOPIC DESCRIPTION: Reviewed by Jose Khan M.D.; Path ologist [facility]/02/13/2015 Piero Alejandro M.D. LAB SURG PATH ORDERABL ES Performing Organization Address City/State/ZIP Code Phon e Number LCM LAB documented in this encounter Visit Diagnoses Not on filedocumented in this encounter Additional Health Concerns Assessment Noted Time PHQ-9 Depression Total Score: 6 01/31/2015 12:28 PM CD T documented as of this encounter
--- OUTSIDE RECORDS SUMMARY | 2022-05-28 07:27 | XMS_ITS | Encounter Summary ---
:1945 Author Organization [facility] Address [address] [place] [address] Care Team Providers Name Role Phone Unavailable Primary Care Provider Unavailable Encounter Details Date Type Department Care Team Description 05/02/2016 Hospital Encounter HX [facility] NEUROLOGY Mari Lala M.D., M.P.H. [address] [place] [address] (Wo rk) Social History Tobacco [...] do you attend sabianism or Never 2021 hindu services? Do you [...] M.D., M.P.H. - 05/02/2016 8:00 AM CDT [id number] CHIEF COMPLAINT/REASON FOR VISIT Disequilibrium. HISTORY OF [...] MD MPH On: 05/03/2016 03:33 PM Source: [facility] MHSDOLBEYNONRADSYS Document Id: [id number] documented in this encounter Nursing Notes Natalee [...] PLUNKETT LPN On: 04/05/2016 11:24 AM Source: [facility] POWERCHART Document Id: [id number] documented in this encounter Miscellaneous Notes Miscellaneous [...] well, then lab again on Friday Source: [facility] POWERCHART Document Id: [id number] Electronically signed by Conversion, [facility] Leak Operator Paraffin Plant [id number] at 02/23/2017 3:20 AM CDT Miscellaneous - Becky Banuelos L.P.NMauro - 05/02/2016 8:09 AM CDT Adult Asphalt Plant Worker Intake/History Adult Asphalt Plant Worker Intake/History Entered On: 05/02/2016 8:14 CDT Performed [...] Information Given By : Patient Languages : Citizen Of [place] Is Patient Female and 13-50 no hysterectomy [...] : Coffee Frequency : Daily BECKY BANUELOS PRODUCT MANAGER E COMMERCE - 05/02/2016 8:09 CDT Recreational Drug Use Grid Drug Use : None BECKY BANUELOS PRODUCT MANAGER E COMMERCE - 05/02/2016 8:09 CDT [facility] Document Id: [id number] CDT!34 Miscellaneous - Piero Weiss M.D. - 04/28/2016 10:53 PM CDT Jonnathan's called with concerns about gross hematuria. He is not having dysuria or any other symptoms. He will submit a urine sample for UA/UC. If negative he will need further work up. [facility]: [facility] Document Id: [id number] documented in this encounter Plan of Treatment Not on filedocumented as of this encounter Visit Diagnoses Not on filedocumented in this encounter Additional Health Concerns Assessment Noted Time PHQ-9 Depression Total Score: 6 01/31/2015 12:28 PM CD T documented as of this encounter
--- OUTSIDE RECORDS SUMMARY | 2022-05-28 07:27 | XMS_ITS | Encounter Summary ---
:1945 Author Organization [facility] Address [address] [place] [address] Care Team Providers Name Role Phone Unavailable Primary Care Provider Unavailable Encounter Details Date Type Department Care Team Description 05/03/2016 Hospital Encounter [facility]X [facility] FBHB LAB Piero Grier M.D. [address] [place], [place] [phone] (Wo rk) Social [...] report from 8-5 is poor quality. Source: [facility] [employer] Document Id: [id number] Electronically signed by Conversion, [facility] Cream Gatherer [id number] at 02/23/2017 3:20 AM CDT documented in [...] MGDL HXeGFR (MDRD) 43 (L) >=60 POWERCHART [id number] eGFR 52 (L) >=60 POWERCHART Black/ [id number] Lao Specimen (Source) Anatomical Collection Method Collection Time [...]
--- OUTSIDE RECORDS SUMMARY | 2022-05-28 07:27 | XMS_ITS | Encounter Summary ---
:1945 Author Organization [facility] Address [address] [place] [address] Care Team Providers Name Role Phone Unavailable Primary Care Provider Unavailable Encounter Details Date Type Department Care Team Description 05/25/2015 Hospital Encounter HX [facility] Piero Grier M.D. [address] [place], [place] [phone] (Wo rk) Social History [...] do you attend cheondoism or Never 2021 cheondoism services? Do you [...] Result Letter 28 May 2015 JONNATHAN COSTA [id number] [facility] [place] [id number] Dear JONNATHAN COSTA, Your cholesterol is better [...] performed 04/06/2015 Sincerely, PIERO HERNANDEZ [address] [facility] [place] [address] Electronic Signature Electronically Signed By: PIERO WEISS MD On: 28 May 2015 This document has images extracted. Source: [facility] POWERCHART Document Id: [id number] Electronically signed by Karen, [facility] Community Organization Aide [id number] at 02/24/2017 2:58 AM CDT documented in [...] for FH and FDB is available throu [facility]: FH/ADH Genetic Reflex Saleh [...] at or the on-line test catalog at [employer] for information about how to order these [...] AST (Aspartate Aminotransferase) (05/25/2015 6:57 AM CDT) [employer] Method Time Signature Aspartate 21 8 - 48 POWERCHART Aminotransferase UNITL (AST), S Specimen (Source) Anatomical Collection Method Collection Time Re ceived Time Location / / Volume Laterality Blood 05/25/2015 6:57 AM CDT Piero Alejandro M.D. LAB BLOOD ADD-ON Performing Organization Address City/State/ZIP Code Phon e Number POWERCHART (ABNORMAL) Lipid Panel (05/25/2015 6:57 AM CDT) [employer] Method Time Signature Calculated LDL Test Not [...]
--- OUTSIDE RECORDS SUMMARY | 2022-05-28 07:27 | XMS_ITS | Encounter Summary ---
:1945 Author Organization [facility] Address [address] [place] [address] Care Team Providers Name Role Phone Unavailable Primary Care Provider Unavailable Encounter Details Date Type Department Care Team Description 11/06/2015 Hospital Encounter HX [facility] Piero Moya i, M.D. [address] [place] [address] (Wo rk) Social History [...] do you attend buddhist or Never 2021 advent services? Do you [...] Comments Blood Pressure 130/60 11/06/2015 11:31 AM BARREL LATHE OPERATOR Pulse 84 11/06/2015 11:31 AM BARREL LATHE OPERATOR Temperature - - Respiratory Rate 26 11/06/2015 11:31 AM BARREL LATHE OPERATOR Oxygen Saturation - - Inhaled Oxygen Concentration - - Weight 112 kg (246 lb 14.6 oz) 11/06/2015 11:31 AM BARREL LATHE OPERATOR Height - - Body Mass Index 30.7 [...] Rojas M.D. - 11/06/2015 10:44 AM CST [id number] CHIEF COMPLAINT/ REASON FOR VISIT Lightheadedness. HISTORY [...] surgery at the [facility]. 8. Tonsillectomy. 9. AGNIESZKA, prescribed CPAP therapy [...] including BMP and CBC. Stress test at [facility]. 2. Above symptoms could also be suggestive of cerebral vascular disease. Will obtain carotid ultrasound. 3. Follow up. The patient will contact the clinic with any new or worsening symptoms. This document serves as a record of services personally performed by Piero Roy MD. It was created on their behalf by Lulu Roldan, a trained biomedical engineering supervisor. The creation of this record is based on the scribe's personal observations and the provider's statements to them. This document has been christie cked and approved by the attending provider. Piero Hinton M.D./livia Electronically Signed By: PIERO ROJAS MD On: 11/08/2015 10:06 PM Source: [facility] MHSDOLBEYNJESSIESYIhsan Document Id: [id number] EL LATHE OPERATOR documented in this encounter Miscellaneous Notes Miscellaneous - Piero Rojas M.D. - 11/20/2015 2:31 PM BARREL LATHE OPERATOR Addendum by JACQUIE SANCHEZ LPN on 20 November 2015 15:14:47 BARREL LATHE OPERATOR order and referal sent to [facility] and patient notified From: PIERO ROJAS MD To: LAWSON Roy Nurse; Sent: 11/20/2015 14:31:32 BARREL LATHE OPERATOR Beth needs an MRI brain and would like an order sent to [facility] in [place], [place]. Fax there is [phone] Please call Diallo to let her know the order has been faxed. Source: [facility] tolingo Document Id: [id number] Carencellaneous - Piero Rojas M.D. - 11/20/2015 2:29 PM BARREL LATHE OPERATOR MRI brain with contrast to evaluate possible TIA. Electronically Signed By: PIERO ROJAS MD On: 11/20/2015 02:29 PM Source: [facility] SubC ControlCHART Document Id: [id number] EL LATHE OPERATOR Miscellaneous - Piero Rojas M.D. - 11/12/2015 4:45 PM BARREL LATHE OPERATOR Ambulatory Patient Summary [address] [id number] Visit Information Name: BETH DURAN [facility] Number: [id number] Current Date: 11/12/2015 16:45:14 [...] if you dont have one. Go to [email or web address] and click on Create Your Account. Then, follow the directions to complete the online form. Youll be asked for your [facility] number which you can find at the top of this document. Your Goals/Additional instructions: Source: [facility] POWERCHART Document Id: [id number] EL LATHE OPERATOR Miscellaneous - Piero Rojas M.D. - 11/12/2015 4:45 PM BARREL LATHE OPERATOR Ambulatory Discharge Medication List [address] [id number] Visit Information Name: BETH DURAN [facility] Number: [id number] Visit Date: 11/12/2015 16:45:13 [...] MD Signed On:12-NOV-2015 16:45:07 Additional Information: Source: [facility] POWERCHART Document Id: [id number] EL LATHE OPERATOR Miscellaneous - Jacquie Sanchez, L.P.N. - 11/06/2015 11:31 AM CST Adult Repair Electric Motor Assembler Intake/History Adult Repair Electric Motor Assembler Intake/History Entered On: 11/06/2015 11:33 BARREL LATHE OPERATOR Performed On: 11/06/2015 11:31 BARREL LATHE OPERATOR by JACQUIE SANCHEZ IMMIGRATION INVESTIGATOR Intake Chief Complaint : light headedness and [...] Weight Clinic : 112 kg JACQUIE SANCHEZ IMMIGRATION INVESTIGATOR - 11/06/2015 11:31 BARREL LATHE OPERATOR General Info Information Given By : Patient Preferred Communication Mode : Verbal Languages : Malagasy Is Patient Female and 13-50 no hysterectomy : No JACQUIE SANCHEZ IMMIGRATION INVESTIGATOR - 11/06/2015 11:31 BARREL LATHE OPERATOR Subjective Pain Symptoms : No JACQUIE SANCHEZ [facility] - 11/06/2015 11:31 BARREL LATHE OPERATOR Dependent Habits Exposure to Tobacco Smoke : Other: quit 40 years ago Smoking Status : Former smoker Tobacco 2A : Yes Tobacco Use/Currently Using : No Tobacco Use/Last 30 Days : No Tobacco Use/Last 12 months : No JACQUIE SANCHEZ [facility] - 11/06/2015 11:31 BARREL LATHE OPERATOR Caffeine Use Grid Caffeine Use : Current Type : Coffee Frequency : Daily JACQUIE SANCHEZ LPN - 11/06/2015 11:31 BARREL LATHE OPERATOR Recreational Drug Use Grid Drug Use : None JACQUIE SANCHEZ [facility] - 11/06/2015 11:31 BARREL LATHE OPERATOR Source: [employer] Document Id: [id number] BARREL LATHE OPERATOR!36 EL LATHE OPERATOR documented in this encounter Plan of Treatment Not on filedocumented as of this encounter Procedures Procedure Name Priority Date/Time Associated Diagnosis Comme nts US CAROTID Routine 11/06/2015 1:29 PM Results f or this BILATERAL BARREL LATHE OPERATOR procedure are i n the results section. CBC WITHOUT Routine 11/06/2015 12:40 PM Results for this DIFFERENTIAL, B BARREL LATHE OPERATOR procedure ar e in the results section. BASIC METABOLIC Routine 11/06/2015 12:40 PM Resul ts for this PANEL, S/P BARREL LATHE OPERATOR procedure are i n the results section. DX CHEST AP OR PA Routine 11/06/2015 12:21 PM Res ults for this AND LATERAL 2 VIEWS BARREL LATHE OPERATOR procedur e are in the results section. documented in this encounter Results US Carotid Bilateral (11/06/2015 1:29 PM BARREL LATHE OPERATOR) Anatomical Region Laterality Modality Head and Neck Bilateral Ultrasound Specimen (Source) Anatomical Collection Method Collection Time Re ceived Time Location / / Volume Laterality 11/06/2015 1:29 PM BARREL LATHE OPERATOR Addenda Addendum by Provider, Pato Chase o theo 11/06/2015 1:29 PM BARREL LATHE OPERATOR RAD^^^OW US Carotid Duplex Bilat 11/06/2015 13:29:50 Narrative 11/06/2015 2:30 PM BARREL LATHE OPERATOR EXAM: US Carotid Duplex Bilat INDICATION: episodes [...] No hemodynamically significa nt stenosis. Procedure Note MtahewMelquiades herndon M.D. / Provider, Mariluz vanegas M.D. [...] (ABNORMAL) CBC without Differential (11/06/2015 12:40 PM BARREL LATHE OPERATOR) Analysis Performed At Patho logist Time Signature Leukocytes 6.4 3.5 - 10.5 POWERCHART X109L Erythrocytes 4.18 (L) 4.32 - POWERCHART 5.72 [id number] Hemoglobin 12.7 (L) 13.5 - POWERCHART 17.5 GDL Hematocrit 36.3 (L) 38.8 - POWERCHART 50.0 MCV 86.8 81.0 - POWERCHART 95.0 FL Platelet Count 214 150 - 450 POWERCHART X109L HX RDW 12.5 11.8 - POWERCHART 15.6 Specimen (Source) Anatomical Collection Method Collection Time Re ceived Time Location / / Volume Laterality Blood 11/06/2015 12:40 PM BARREL LATHE OPERATOR Piero Alejandro M.D. LAB BLOOD ADD-ON Performing Organization Address City/State/ZIP Code Phon e Number POWERCHART (ABNORMAL) BMP (Basic Metabolic Panel) (11/06/2015 12:40 PM BARREL LATHE OPERATOR) P athologist Signature Anion Gap 14 7 [...] POWERCHART MMOLL HXeGFR (MDRD) >60 >=60 POWERCHART [id number] eGFR >60 >=60 POWERCHART Black/ [id number] [place] Specimen (Source) Anatomical Collection Method Collection Time Re ceived Time Location / / Volume Laterality Blood 11/06/2015 12:40 PM BARREL LATHE OPERATOR Piero Alejandro M.D. LAB BLOOD ADD-ON Performing Organization Address City/State/ZIP Code Phon e Number POWERCHART DX Chest Anterior Posterior or Posterior Anterior and Lateral 2 Views (11/06/2015 12:21 PM BARREL LATHE OPERATOR) Anatomical Region Laterality Modality Chest N/A Radiographic Imaging Specimen (Source) Anatomical Collection Method Collection Time Re ceived Time Location / / Volume Laterality 11/06/2015 12:21 PM BARREL LATHE OPERATOR Addenda Addendum by Provider, Pato Chase 11/06/2015 12:21 PM BARREL LATHE OPERATOR RAD^^^OW XR Chest 2 Views 11/06/2015 12:21:42 Impressions 11/06/2015 12:52 PM BARREL LATHE OPERATOR ??No acute findings. Narrative 11/06/2015 12:52 PM BARREL LATHE OPERATOR EXAM: ??XR Chest 2 Views AGE: ??70 [...]
--- OUTSIDE RECORDS SUMMARY | 2022-05-28 07:27 | XMS_ITS | Encounter Summary ---
:1945 Author Organization [facility] Address [address] [place] [address] Care Team Providers Name Role Phone Unavailable Primary Care Provider Unavailable Encounter Details Date Type Department Care Team Description 04/11/2015 Hospital Encounter HX [facility] FAMILYPRA Piero Moya i, M.D. [address] [place] [address] (Wo rk) Social History Tobacco [...] you attend oriental orthodox or Never 2021 christianity services? Do [...] Weiss M.D. - 04/11/2015 1:59 PM CDT [id number] CHIEF COMPLAINT/ REASON FOR VISIT Review lab results and discuss seeing an hand crown pouncer. HISTORY OF PRESENT ILLNESS Beth is a 69 year old male who presents to the clinic today to discuss his lab results and discuss seeing an hand crown pouncer. He has had diabetes for 25 years [...] their behalf by Karen Jones, a trained biomedical technician. The creation of this record is based on the scribe's personal observations and the provider's statements to them. This document has been checked and approved by the attending provider. Piero Hinton M.D./ Electronically Signed By: PIERO WEISS MD On: 06/19/2015 10:16 AM Source: [facility] MHSDOLBEYNONRADSYS Document Id: [id number] documented in this encounter Miscellaneous Notes Telephone [...] to stop them. As today at the iron handler appt he was told something different about [...] back cell phone number ( ) Source: [facility] POWERCHART Document Id: [id number] Electronically signed by Karen [facility] Adult Basic Education Teacher [id number] at 02/23/2017 6:30 PM CDT Miscellaneous - Piero Weiss M.D. - 04/11/2015 6:16 PM CDT Ambulatory Patient Summary [address] [id number] Visit Information Name: BETH COSTA [facility] Number: [id number] Current Date: 04/11/2015 18:16:46 [...] nasal (fluticasone 50 mcg/inh nasal spray) 2 [place](s), Nostrils(Both), once a day gemfibrozil (gemfibrozil 600 [...] Appointments Date Time Location Provider 04/19/2015 11:30 [facility] Landis CNP Attention: Contact your local [...] online form. Youll be asked for your [facility] number which you can find at the top of this document. Your Goals/Additional instructions: Source: [facility] POWERCHART Document Id: [id number] Miscellaneous - Piero Weiss M.D. - 04/11/2015 6:16 PM CDT Ambulatory Discharge Medication List [address] [id number] Visit Information Name: BETH COSTA [facility] Number: [id number] Visit Date: 04/11/2015 18:16:45 [...] nasal (fluticasone 50 mcg/inh nasal spray) 2 [place](s), Nostrils(Both), once a day gemfibrozil (gemfibrozil 600 [...] MD Signed On:11-APR-2015 18:16:38 Additional Information: Source: [facility] POWERCHART Document Id: [id number] Miscellaneous - Justina Lobato, LMauroP.N. - 04/11/2015 [...] CROWLEY LPN - 04/11/2015 14:09 CDT Source: [facility] POWERCHART Document Id: [id number] CDT!7 Miscellaneous - Justina Lobato L.P.N. - 04/11/2015 2:06 PM CDT Adult Airport Operations Specialist Intake/History Adult Airport Operations Specialist Intake/History Entered On: 04/11/2015 14:08 CDT Performed On: 04/11/2015 14:06 CDT by JUSTINA LOBATO LPN Intake Chief Complaint : 1. Discuss test results 2. Discuss seeing an hand crown pouncer Peripheral Pulse Rate : 80 /min Respiratory [...] Communication Mode : Verbal, Written Languages : Nepalese Is Patient Female and 13-50 no hysterectomy [...] LOBATO LPN - 04/11/2015 14:06 CDT Source: [facility] POWERCHART Document Id: [id number] CDT!36 documented in this encounter Plan of Treatment Not on filedocumented as of this encounter Visit Diagnoses Not on filedocumented in this encounter Additional Health Concerns Assessment Noted Time PHQ-9 Depression Total Score: 6 01/31/2015 12:28 PM CD T documented as of this encounter
--- OUTSIDE RECORDS SUMMARY | 2022-05-28 07:27 | XMS_ITS | Encounter Summary ---
:1945 Author Organization [facility] Address [address] [place] [address] Care Team Providers Name Role Phone Unavailable Primary Care Provider Unavailable Encounter Details Date Type Department Care Team Description 11/21/2015 Hospital Encounter HX [facility] FAMILYPR[facility] Piero Moya i, M.D. [address] [place] [address] (Wo rk) Social History Tobacco [...] do you attend spiritism or Never 2021 restorationism services? Do you [...] Comments Blood Pressure 132/70 11/21/2015 3:48 PM STEAM OVEN OPERATOR Pulse 72 11/21/2015 3:48 PM STEAM OVEN OPERATOR Temperature - - Respiratory Rate - - Oxygen Saturation - - Inhaled Oxygen Concentration - - Weight 112 kg (247 lb 5.7 oz) 11/21/2015 3:48 PM STEAM OVEN OPERATOR Height - - Body Mass Index [...] Weiss M.D. - 11/21/2015 3:43 PM CST [id number] REVISON HISTORY November 24, 2015 at 3:55 [...] MD On: 11/29/2015 12:00 AM Source: [facility] MHSDOLBEYNONRADSYS Document Id: [id number] M OVEN OPERATOR documented in this encounter Nursing Notes Kitty Bailey L.P.N. - 05/03/2016 1:24 PM CDT diagnostics notified [facility]diagnostics that creatnin level from this mornings draw was 1.6 again and verified that they were aware that low dose contrast dye was going to be used Electronically Signed By: KITTY BAILEY LPN On: 05/03/2016 01:27 PM Source: [facility] POWERCHART Document Id: [id number] documented in this encounter Miscellaneous Notes Telephone Encounter - Kitty Bailey L.PMauroNMauro - 05/02/2016 8:58 AM CDT *Phone Message Document Contains Addenda Addendum by KITTY BAILEY LPN on May 02, 2016 14:02:10 CDT From: KITTY BAILEY LPN ([facility] Nurse) To: PIERO WEISS MD; Sent: 05/02/2016 14:02:10 CDT Subject: FYI Addendum by KITTY BAILEY LPN on May 02, 2016 14:01:28 CDT notified Diallo/ the CT urogram is scheduled for 05/03 at [facility] with a 2:45 arrival and 3pm apptset. advised Beth to hydrate well today per Dr. WOO and redo labs Fri morning and again on Mon ... Addendum by KITTY BAILEY LPN on May 02, 2016 13:27:08 CDT From: KITTY BAILEY LPN ([facility] Nurse) To: PIERO WEISS MD; Sent: 05/02/2016 13:27:08 CDT Subject: FW: *Phone Message Addendum by DEONDREANDRIY on May 02, 2016 13:09:36 CDT Diallo () called - Beth's phone isn't working so they want you to call her phone regarding the CT scan order - [phone] Addendum by HUSEYIN GASPAR LPN on May 02, 2016 11:27:03 CDT From: HUSEYIN GASPAR [facility]PN [facility]; Sent: 05/02/2016 11:27:03 CDT Subject: RE: *Phone Message Per Dr.Alex Bernal. Patient should be notified to hydrate well and then recheck creatinine. From: KITTY BAILEY LPN ([facility] Nurse) To: HUSEYIN GASPAR LPN; Sent: [...] cell phone number ( ) Source: [facility] POWERCHART Document Id: [id number] Electronically signed by Conversion, [facility] Cushion Former [id number] at 02/22/2017 8:50 AM CDT Miscellaneous - Piero Weiss M.D. - 11/22/2015 11:43 PM STEAM OVEN OPERATOR Ambulatory Patient Summary [address] [id number] Visit Information Name: BETH COSTA [facility] Number: [id number] Current Date: 11/22/2015 23:43:30 [...] if you dont have one. Go to [email or web address] and click on Create Your Account. Then, follow the directions to complete the online form. Youll be asked for your [facility] number which you can find at the top of this document. Your Goals/Additional instructions: Source: [facility] POWERCHART Document Id: [id number] M OVEN OPERATOR Miscellaneous - Piero Weiss M.D. - 11/22/2015 11:43 PM STEAM OVEN OPERATOR Ambulatory Discharge Medication List [address] [id number] Visit Information Name: BETH COSTA [facility] Number: [id number] Visit Date: 11/22/2015 23:43:29 [...] MD Signed On:22-NOV-2015 23:43:20 Additional Information: [facility] Document Id: [id number] M OVEN OPERATOR Miscellaneous - Steffany Ruelas L.P.N. - 11/21/2015 3:48 PM CST Adult Core Java Software Engineer Intake/History Adult Core Java Software Engineer Intake/History Entered On: 11/21/2015 15:51 STEAM OVEN OPERATOR Performed On: 11/21/2015 15:48 STEAM OVEN OPERATOR by STEFFANY RUELAS LPN Intake Chief [...] kg STEFFANY RUELAS LPN - 11/21/2015 15:48 STEAM OVEN OPERATOR General Info Information Given By : Patient Preferred Communication Mode : Verbal Languages : Mauritian Is Patient Female and 13-50 no hysterectomy : No STEFFANY RUELAS LPN - 11/21/2015 15:48 STEAM OVEN OPERATOR Subjective Pain Symptoms : No STEFFANY RUELAS LPN - 11/21/2015 15:48 STEAM OVEN OPERATOR Dependent Habits Exposure to Tobacco Smoke : Other: quit 40 years ago Smoking Status : Former smoker Tobacco 2A : Yes Tobacco Use/Currently Using : No Tobacco Use/Last 30 Days : No Tobacco Use/Last 12 months : No STEFFANY RUELAS LPN - 11/21/2015 15:48 STEAM OVEN OPERATOR Caffeine Use Grid Caffeine Use : Current Type : Coffee Frequency : Daily STEFFANY RUELAS LPN - 11/21/2015 15:48 STEAM OVEN OPERATOR Recreational Drug Use Grid Drug Use : None STEFFANY RUELAS LPN - 11/21/2015 15:48 STEAM OVEN OPERATOR Source: [facility] POWERCHART Document Id: [id number] STEAM OVEN OPERATOR!35 M OVEN OPERATOR documented in this encounter Plan of Treatment Not on filedocumented as of this encounter Visit Diagnoses Not on filedocumented in this encounter Additional Health Concerns Assessment Noted Time PHQ-9 Depression Total Score: 6 01/31/2015 12:28 PM CD T documented as of this encounter
--- OUTSIDE RECORDS SUMMARY | 2022-05-28 07:27 | XMS_ITS | Encounter Summary ---
:1945 Author Organization [facility] Address [address] [place] [address] Care Team Providers Name Role Phone Unavailable Primary Care Provider Unavailable Encounter Details Date Type Department Care Team Description 04/29/2016 Hospital Encounter HX [facility] LAB Piero Grier M.D. [address] [place], [place] [phone] (Wo rk) Social History [...] been established. Patient was encouraged to contact [facility] radiology scheduling tomorrow to schedule CT Urogram ordered by Dr. Roy. Source: [employer] Online Scheduling Document Id: [id number] Miscellaneous - Prudence Peralta L.P.N. - 05/01/2016 5:17 PM CDT *General Message From: PRUDENCE PERALTA LPN ( Urology Nurse) Sent: 05/01/2016 17:17:51 CDT Subject: *General Message Referral request recieved by PSA to schedule patient with Dr. Luevano for evaluation of hematuria. Phone conversation with Marti nurse for Dr. Lawson . Marti will check if orders sent to [facility] for CT urogram and if patient has had creatinine completed. Marti notified that patient can be scheduled for Urology evaluation as soon as imaging is completed if Urology is notifiesd when Ct will be completed. Source: [employer] Scheduling Document Id: [id number] Piero Otoole M.D. - 04/30/2016 10:25 PM [...] Has the CT urogram been scheduled? Source: [facility] POWERCHART Document Id: [id number] Miscellaneous - Piero Weiss M.D. - 04/29/2016 [...] to the urine done this morning. Source: [facility] POWERCHART Document Id: [id number] Electronically signed by Conversion, [facility] Hvac Tech [id number] at 02/23/2017 3:20 AM CDT documented in this encounter Plan of Treatment Not on filedocumented as of this encounter Procedures Procedure Name Priority Date/Time Associated Comments Diagnosis ZZPATHOLOGY NON-ARC WELDING MACHINE OPERATOR Routine 04/29/2016 8:58 AM Re sults for [...] section. documented in this encounter Results ZZPATHOLOGY NON-ARC WELDING MACHINE OPERATOR CYTOLOGY (04/29/2016 8:58 AM CDT) Specimen (Source) Anatomical Collection Method Collection Time Re ceived Time Location / / Volume Laterality 04/29/2016 8:58 AM CDT Narrative LCM LAB - 04/30/2016 11:14 AM CDT [facility] [place] [address] [place] [address] ??[phone] Patient Name: JONNATHAN COSTA Patient ID #: [id number] Collected: 04/29/2016 Address: [facility]/State/Zip: [address] [place], [place] [id number] Received: Reported: 04/30/2016 04/30/2016 Soc. Sec. #: ?/Age/Sex 1 (Age: 70) ??M Physician(s): IRENA HERNANDEZ MD Copy To: ? [facility] ??[id number] [address] [facility], ??[place] ??[address] CYTOPATHOLOGY NON-ARC WELDING MACHINE OPERATOR REPORT FINAL CYTOLOGIC DIAGNOSIS Urine-VOIDED: DIAGNOSIS ATYPICAL UROTHELIAL CELLS CONSISTENT WIT H INFLAMMATION, CALCULUS, RECENT INSTRUMENTATION OR LOW GRADE PAPILLARY LESION. SATISFACTORY SPECIMEN FOR EVALUATION. Electronically Signed By [employer]/04/30/2016 JOVANNY LACY M.D. [facility](ASCP) SPECIMEN(S) RECEIVED: Urine-VOIDED CLINICAL HISTORY: GROSS HEMATURIA GROSS DESCRIPTION: 2 CYTOSPINS PREPARED FROM 10 ML OF CLOUD Y PALE YELLOW FLUID. Piero Alejandro M.D. LAB PATHOLOGY/CYTOLOGY ORDERABLES Performing Organization Address City/[facility]/ZIP Code Phon e Number [facility] HXUR % DYSMORPHIC RBC (04/29/2016 8:46 AM CDT) P athologist Signature Dysmorphic RBC <=25 <=25 POWERCHART Specimen Anatomical Collection Method Collection Time Receive d Time (Source) Location / / Volume Laterality Urine, First 04/29/2016 8:46 AM 6 8:46 Voided CDT AM CDT Piero Alejandro M.D. LAB HISTORICAL ORDERS Performing Organization Address City/[facility] Code Phon e Number POWERCHART (ABNORMAL) Urinalysis, Complete, Includes Microscopic (04/29/2016 8:46 AM CDT) Patholo gist Method Time Signature Clarity Clear Clear POWERCHART HXUr Color Yellow Colorless POWERCHART Specific 1.020 POWERCHART Vida, POCT, U pH, POCT, Urine 5.5 <5.0 [...] M.D. LAB URINE ORDERABLES Performing Organization Address City/[facility]/ZIP Code Phon e Number POWERCHART Bacterial Culture, [...]
--- OUTSIDE RECORDS SUMMARY | 2022-05-28 07:27 | XMS_ITS | Encounter Summary ---
:1945 Author Organization [facility] Address [address] [place] [address] Care Team Providers Name Role Phone Unavailable Primary Care Provider Unavailable Encounter Details Date Type Department Care Team Description 04/29/2016 Hospital Encounter HX NO MAPPING Ewa Alejandro M.D. [address] [place], [place] [phone] (Wo rk) Social History [...] do you attend judaism or Never 2021 pentecostal services? Do you [...]
--- OUTSIDE RECORDS SUMMARY | 2022-05-28 07:27 | XMS_ITS | Encounter Summary ---
:1945 Author Organization [facility] Address [address] [place] [address] Care Team Providers Name Role Phone Unavailable Primary Care Provider Unavailable Encounter Details Date Type Department Care Team Description 04/29/2016 Hospital Encounter HX NO MAPPING Ewa Alejandro M.D. [address] [place], [place] [phone] (Wo rk) Social History [...] you attend oriental orthodox or Never 2021 yazidism services? Do you [...] Coding Summary-Paper Based CODING DATE: 05/10/2016 FINAL [facility] STATUS: * Discharged to Home [...] TREVIZO Date Saved: 05/10/2016 11:05 am Source: [employer] Document Id: [id number] documented in this encounter Plan of Treatment Not on filedocumented as of this encounter Visit Diagnoses Not on filedocumented in this encounter Additional Health Concerns Assessment Noted Time PHQ-9 Depression Total Score: 6 01/31/2015 12:28 PM CD T documented as of this encounter
--- OUTSIDE RECORDS SUMMARY | 2022-05-28 07:27 | XMS_ITS | Encounter Summary ---
:1945 Author Organization [facility] Address [address] [place] [address] Care Team Providers Name Role Phone Unavailable Primary Care Provider Unavailable Encounter Details Date Type Department Care Team Description 04/06/2015 Hospital Encounter HX [facility] FB LAB Piero Grier M.D. [address] [place], [place] [phone] (Wo rk) Social History [...] fasting labs again in 6 weeks. Source: [facility] [employer] Document Id: [id number] Electronically signed by Conversion, [facility] Leak Hunter [id number] at 02/23/2017 6:30 PM CDT documented in [...] for FH and FDB is available throu [facility]: FH/ADH Genetic Reflex Saleh [...] at or the on-line test catalog at [employer] for information about how to order [...] AST (Aspartate Aminotransferase) (04/06/2015 8:19 AM CDT) [facility] [employer] Method Time Signature Aspartate 20 8 - 48 POWERCHART Aminotransferase UNITL (AST), S Specimen (Source) Anatomical Collection Method Collection Time Re ceived Time Location / / Volume Laterality Blood 04/06/2015 8:19 AM CDT Piero Alejandro M.D. LAB BLOOD ADD-ON Performing Organization Address City/State/ZIP Code Phon e Number POWERCHART (ABNORMAL) Lipid Panel (04/06/2015 8:19 AM CDT) [facility] [employer] Method Time Signature Calculated LDL Test Not [...]
--- OUTSIDE RECORDS SUMMARY | 2022-05-28 07:27 | XMS_ITS | Encounter Summary ---
:1945 Author Organization [facility] Address [address] [place] [address] Care Team Providers Name Role Phone Unavailable Primary Care Provider Unavailable Encounter Details Date Type Department Care Team Description 05/07/2016 Hospital Encounter HX [facility] FBHB LAB Piero Grier M.D. [address] [place], [place] [phone] (Wo rk) Social History [...] do you attend jain or Never 2021 mu-ism services? Do you [...] get him in to urology AGUILAR Source: [facility] POWERCHART Document Id: [id number] Miscellaneous - Piero Weiss M.D. - 05/07/2016 [...] Urogram. Can he be seen AGUILAR in [place]? Source: [facility] POWERCHART Document Id: [id number] documented in this encounter Plan of Treatment [...] POWERCHART MMOLL HXeGFR (MDRD) >60 >=60 POWERCHART [id number] eGFR >60 >=60 POWERCHART Black/ [id number] Polish Glucose 166 (H) 70 - 139 POWERCHART [...]
--- OUTSIDE RECORDS SUMMARY | 2022-05-28 07:27 | XMS_ITS | Encounter Summary ---
:1945 Author Organization [facility] Address [address] [place] [address] Care Team Providers Name Role Phone Unavailable Primary Care Provider Unavailable Encounter Details Date Type Department Care Team Description 08/02/[address] [facility] FB LAB Ewa Grier M.D. [address] [place], [place] [phone] (Wo rk) Social History [...] do you attend baptism or Never 2021 latter day services? Do [...] 08/02/2015 7:28 Results fo r this AM SUPERINTENDENT ELECTRIC POWER procedure are i n the results section. ASPARTATE Routine 08/02/2015 7:28 Results for this AMINOTRANSFERASE (AST), AM SUPERINTENDENT ELECTRIC POWER proc edure are in S/P the results section. LDL CHOLESTEROL Routine 08/02/2015 7:28 Results f or this (BETA-QUANTIFICATION), S AM SUPERINTENDENT ELECTRIC POWER pro cedure are in the results section. documented in this encounter Results (ABNORMAL) LDL Cholesterol (Beta-Quantification) (08/02/2015 7:28 AM SUPERINTENDENT ELECTRIC POWER) P athologist Signature Direct LDL 143 (H) [...] for FH and FDB is available [facility]: FH/ADH Genetic Reflex Saleh el (test ADHP). Acquired (non-genetic) causes of markedly increased LDL cholesterol include cholestatic liver disease due to the presence of LpX. If a genetic form of hypercholesterolemia is suspected, family studies including biochemical testing fo r lipids (total cholesterol,triglycerides, LDL cholesterol and HDL cholesterol) are recommended. ??Please contact the laboratory at or the on-line test catalog at [employer] for information about how to order these more ts or to speak with a genetic counselor. Further interpretation would require clinical information. Specimen Anatomical Collection Method Collection Time Receive d Time (Source) Location / / Volume Laterality Blood 08/02/2015 7:28 AM 5 7:28 SUPERINTENDENT ELECTRIC POWER AM SUPERINTENDENT ELECTRIC POWER Ewa Alejandro M.D. LAB BLOOD ADD-ON Performing Organization Address City/State/ZIP Code Phon e Number POWERCHART AST (Aspartate Aminotransferase) (08/02/2015 7:28 AM SUPERINTENDENT ELECTRIC POWER) [employer] Method Time Signature Aspartate 23 8 - 48 POWERCHART Aminotransferase UNITL (AST), S Specimen (Source) Anatomical Collection Method Collection Time Re ceived Time Location / / Volume Laterality Blood 08/02/2015 7:28 AM SUPERINTENDENT ELECTRIC POWER Ewa Alejandro M.D. LAB BLOOD ADD-ON Performing Organization Address City/State/ZIP Code Phon e Number POWERCHART (ABNORMAL) Lipid Panel (08/02/2015 7:28 AM SUPERINTENDENT ELECTRIC POWER) [employer] Method Time Signature Calculated LDL Test Not [...] / Volume Laterality Blood 08/02/2015 7:28 AM SUPERINTENDENT ELECTRIC POWER Ewa Alejandro M.D. LAB BLOOD ADD-ON Performing Organization Address City/State/ZIP Code Phon e Number POWERCHART documented in this encounter Visit Diagnoses Not on filedocumented in this encounter Additional Health Concerns Assessment Noted Time PHQ-9 Depression Total Score: 6 01/31/2015 12:28 PM CD T documented as of this encounter
--- OUTSIDE RECORDS SUMMARY | 2022-05-28 07:27 | XMS_ITS | Encounter Summary ---
:1945 Author Organization [facility] Address [address] [place] [address] Care Team Providers Name Role Phone Unavailable Primary Care Provider Unavailable Encounter Details Date Type Department Care Team Description 04/21/2015 Hospital Encounter HX [facility] Piero Moya i, M.D. [address] [place] [phone] (Wo rk) Social History Tobacco [...] do you attend temple or Never 2021 moravian services? Do you [...] Weiss M.D. - 04/21/2015 9:41 AM CDT [id number] CHIEF COMPLAINT/ REASON FOR VISIT Medication check. [...] Status post left cataract surgery [place] the [place]. 8. Tonsillectomy. 9. AGNIESZKA, prescribed CPAP therapy [...] their behalf by Lulu Roldan, a trained chief medical technologist. The creation of this record is based on the scribe's personal observations and the provider's statements to them. This document has been christie cked and approved by the attending provider. Piero Hinton M.D./livia Electronically Signed By: PIERO WEISS MD On: 06/19/2015 10:56 AM Source: [facility] MHSDOLBEYNONRADSYS Document Id: [id number] documented in this encounter Nursing Notes Natalee Plunkett, L.P.N. - 10/20/2015 4:00 PM CST Panel management call Attempted to contact patient in regards to being due for AIC. According to letter sent on 05/28/15 patient can have repeat lipids in 6 months. Unable to leave message . Mail box is full. Electronically Signed By: NATALEE PLUNKETT LPN On: 10/20/2015 04:02 PM Source: [facility] POWERCHART Document Id: [id number] ESSOR OF LAT[employer] STUDIES documented in this encounter Miscellaneous Notes Miscellaneous - Lucila Blevins - 10/12/2015 1:17 PM CST Quality Measures Quality Measures Entered On: 10/17/2015 13:17 PROFESSOR OF LAT[employer] STUDIES Performed On: 10/12/2015 13:17 PROFESSOR OF [employer]UDIES by LUCILA BLEVINS LPN Diabetes Date of Last Eye Exam : 10/12/2015 PROFESSOR OF [employer]UDIES LUCILA BLEVINS LPN - 10/17/2015 13:17 PROFESSOR OF LAT[employer] AMERICAN STUDIES [facility] Document Id: [id number] PROFESSOR OF LATIN AMERICAN STUDIES!3 E[employer]OR [employer]UD[employer] Miscellaneous - Ofelia [place] RJustina - 04/21/2015 9:45 AM CDT Adult Warper Tender Intake/History Adult Warper Tender Intake/History Entered On: 04/21/2015 9:47 CDT Performed [...] 9:45 CDT Source: [facility] POWERCHART Document Id: [id number] CDT!31 documented in this encounter Plan of Treatment Not on filedocumented as of this encounter Visit Diagnoses Not on filedocumented in this encounter Additional Health Concerns Assessment Noted Time PHQ-9 Depression Total Score: 6 01/31/2015 12:28 PM CD T documented as of this encounter
--- OUTSIDE RECORDS SUMMARY | 2022-05-28 07:28 | XMS_ITS | Encounter Summary ---
:1945 Author Organization [facility] Address [address] [place] [address] Care Team Providers Name Role Phone Unavailable Primary Care Provider Unavailable Encounter Details Date Type Department Care Team Description 08/22/2010 Hospital Encounter HX [facility] José Collazo M.D. [address] [place] [phone] (Wo rk) Social History Tobacco [...] do you attend anglican or Never 2021 buddhist services? Do you [...] Phillips M.D. - 08/22/2010 12:00 AM CST [id number] IMPRESSION/REPORT/PLAN The patient is ASA Class II [...] dysfunction 6. Pulmonary symptomatology, diagnosis at the [place] unclear, but probably some degree of COPD 7. Status post left cataract surgery at the [place] [facility] Age: 65. Diphtheria/Tetanus: 01/14/2009. Influenza [...] PHILLIPS MD On 08/22/2010 03:48 PM Source: [facility] MHSDOLBEYNONRADSYS Document Id: [id number] ING BENCH WORKER documented in this encounter Nursing Notes Aleida Polanco L.PMauroNMauro - 08/27/2010 7:52 AM CST pre-op pre-op faxed to [place] Electronically Signed By:ALEIDA POLANCO LPN On 08/27/2010 07:53 am Source: [facility] [employer] Document Id: [id number] ING BENCH WORKER documented in this encounter Miscellaneous Notes Miscellaneous - Kelly Phillips M.D. - 08/27/2010 8:12 AM CST Reminder Msg Document Contains Addenda Addendum by ALEIDA POLANCO LPN on 28 August 2010 13:07:59 BINDING BENCH WORKER called wt results From: KELLY PHILLIPS MD To: ALEIDA POLANCO LPN Sent: 08/27/2010 08:12:24 BINDING BENCH WORKER ! Show up: 08/27/2010 08:12:00 BINDING BENCH WORKER Subject: Reminder Msg Actions: Notify patient of results Due Date/Time: 08/27/2010 08:12:00 BINDING BENCH WORKER Source: [facility] POWERCHART Document Id: [id number] Miscellaneous - Kelly Phillips M.D. - 08/22/2010 11:46 AM CST Reminder Msg Document Contains Addenda Addendum by ALEIDA POLANCO LPN on 28 August 2010 13:07:44 BINDING BENCH WORKER called with results patient will call back about starting new RX From: KELLY PHILLIPS MD To: ALEIDA POLANCO LPN Sent: 08/22/2010 11:46:06 BINDING BENCH WORKER ! Show up: 08/22/2010 11:44:00 BINDING BENCH WORKER Subject: Reminder Msg Actions: Notify patient of results Due Date/Time: 08/22/2010 11:44:00 BINDING BENCH WORKER Source: [facility] POWERCHART Document Id: [id number] Miscellaneous - Kelly Phillips M.D. - 08/22/2010 10:43 AM CST Reminder Msg Document Contains Addenda Addendum by ALEIDA POLANCO LPN on 28 August 2010 13:06:55 BINDING BENCH WORKER called with results From: KELLY PHILLIPS MD To: ALEIDA POLANCO LPN Sent: 08/22/2010 10:43:19 BINDING BENCH WORKER ! Show up: 08/22/2010 10:42:00 BINDING BENCH WORKER Subject: Reminder Msg Actions: Notify patient of results Due Date/Time: 08/22/2010 10:42:00 BINDING BENCH WORKER Source: [facility] mLEDCHART Document Id: [id number] Reji - Aleida Polanco L.P.NMauro - 08/22/2010 9:35 AM CST Ambulatory Vitals Height Weight Ambulatory Vitals Height Weight Entered On: 08/22/2010 9:35 BINDING BENCH WORKER Performed On: 08/22/2010 9:35 BINDING BENCH WORKER by ALEIDA POLANCO LPN Vitals/Ht/Wt Temperature Core: 36.6C(Converted to: 97.9DegF) SpO2: 97% Oxygen Therapy: Room air ALEIDA POLANCO LPN - 08/22/2010 9:35 BINDING BENCH WORKER Source: [facility] POWERCHART Document Id: [id number] BINDING BENCH WORKER!5 ING BENCH WORKER Miscellaneous - Aleida Polanco L.P.N. - 08/22/2010 9:32 AM CST Adult Apple Peeler Operator Intake/History Adult Apple Peeler Operator Intake/History Entered On: 08/22/2010 9:34 BINDING BENCH WORKER Performed On: 08/22/2010 9:32 BINDING BENCH WORKER by ALEIDA POLANCO LPN Intake Chief Complaint: [...] 30kg/m2 ALEIDA POLANCO LPN - 08/22/2010 9:32 BINDING BENCH WORKER Subjective Pain Symptoms: No ALEIDA POLANCO LPN - 08/22/2010 9:32 BINDING BENCH WORKER Dependent Habits Tobacco Use/Currently Using: No Alcohol Use: Yes ALEIDA POLANCO LPN - 08/22/2010 9:32 BINDING BENCH WORKER Caffeine Use Grid Caffeine Use: Current Type: Coffee Frequency: Daily ALEIDA POLANCO LPN - 08/22/2010 9:32 BINDING BENCH WORKER Recreational Drug Use Grid Drug Use: None ALEIDA POLANCO LPN - 08/22/2010 9:32 BINDING BENCH WORKER Allergies Latex Screening: No ALEIDA POLANCO LPN - 08/22/2010 9:32 BINDING BENCH WORKER Allergies (Active) penicillin Estimated Onset Date: Unspecified ; Created By: ALEIDA POLANCO LPN; Reaction Status:Active ; Category: Drug ; Substance: penicillin ; Type: Allergy ; Updated By: ALEIDA POLANCO LPN; Source: Paper Chart/Abstracting ; Reviewed Date: 08/22/2010 9:26 BINDING BENCH WORKER sulfa drugs Estimated Onset Date: Unspecified ; Created By: ALEIDA POLANCO LPN; Reaction Status: Active ; Category: Drug ; Substance: sulfa drugs ; Type: Allergy ; Updated By: ALEIDA POLANCO LPN; Source: Paper Chart/Abstracting ; Reviewed Date: 08/22/2010 9:26 BINDING BENCH WORKER Source: [facility] POWERCHART Document Id: [id number] BINDING BENCH WORKER!31 ING BENCH WORKER documented in this encounter Plan of Treatment Not on filedocumented as of this encounter Visit Diagnoses Not on filedocumented in this encounter
--- OUTSIDE RECORDS SUMMARY | 2022-05-28 07:28 | XMS_ITS | Encounter Summary ---
:1945 Author Organization [facility] Address [address] [place] [address] Care Team Providers Name Role Phone Unavailable Primary Care Provider Unavailable Encounter Details Date Type Department Care Team Description 04/18/2014 Hospital Encounter HX [facility] FB LAB Ewa Grier M.D. [address] [place], [place] [phone] [...] do you attend scientology or Never 2021 baptism services? Do you [...]
--- OUTSIDE RECORDS SUMMARY | 2022-05-28 07:28 | XMS_ITS | Encounter Summary ---
:1945 Author Organization [facility] Address [address] [place] [address] Care Team Providers Name Role Phone Unavailable Primary Care Provider Unavailable Encounter Details Date Type Department Care Team Description 01/31/2015 Hospital Encounter HX [facility] FB LAB Ewa Grier M.D. [address] [place], [place] [phone] (Wo rk) Social History [...] do you attend mosque or Never 2021 evangelical services? Do you [...] POWERCHART MMOLL HXeGFR (MDRD) >60 >=60 POWERCHART [id number] eGFR >60 >=60 POWERCHART Black/ [id number] Sammarinese Specimen (Source) Anatomical Collection Method Collection [...]
--- OUTSIDE RECORDS SUMMARY | 2022-05-28 07:28 | XMS_ITS | Encounter Summary ---
:1945 Author Organization [facility] Address [address] [place] [address] Care Team Providers Name Role Phone Unavailable Primary Care Provider Unavailable Encounter Details Date Type Department Care Team Description 10/13/2013 Hospital Encounter HX [facility] FBHB LAB Piero Grier M.D. [address] [place], [place] [phone] (Wo rk) Social History [...] do you attend druze or Never 2021 christianity services? Do you [...] Piero Weiss M.D. - 10/23/2013 10:05 PM DYE AND CHEMICAL COORDINATOR Custom Result Letter 23 October 2013 JONNATHAN COSTA [id number] [facility] [place] [id number] Dear JONNATHAN COSTA, The sugar seems improved as the A1C is lower. [place] is less than 7. T he cholesterol [...] 4.0 - 6.0 Sincerely, PIERO MURILLO [address] [place] [address] Electronic Signature Electronically Signed By: PIERO MURILLO MD On: 23 October 2013 This document has images extracted. Source: [facility] POWERCHART Document Id: [id number] Electronically signed by Conversion, [facility] Water Project Engineer [id number] at 02/25/2017 2:45 PM CDT documented in this encounter Plan of Treatment Not on filedocumented as of this encounter Procedures Procedure Name Priority Date/Time Associated Comments Diagnosis LIPID PANEL, S Routine 10/13/2013 8:04 Results fo r this AM DYE AND CHEMICAL COORDINATOR procedure are i n the results section. ASPARTATE Routine 10/13/2013 8:04 Results for this AMINOTRANSFERASE (AST), AM DYE AND CHEMICAL COORDINATOR proc edure are in S/P the results section. documented in this encounter Results (ABNORMAL) Lipid Panel (10/13/2013 8:04 AM DYE AND CHEMICAL COORDINATOR) [facility] Method Time Signature Cholesterol, 222 (H) 0 - 200 POWERCHART Total MGDL HX HDL 39.0 (L) 40.0 - POWERCHART 60.0 MGDL Triglycerides 351 (H) 0 - 150 POWERCHART MGDL Calculated LDL 113 (H) 0 - 100 POWERCHART MGDL Specimen (Source) Anatomical Collection Method Collection Time Re ceived Time Location / / Volume Laterality Blood 10/13/2013 8:04 AM DYE AND CHEMICAL COORDINATOR Piero Alejandro M.D. LAB BLOOD ADD-ON Performing Organization Address City/State/[facility] Code Phon e Number POWERCHART AST (Aspartate Aminotransferase) (10/13/2013 8:04 AM DYE AND CHEMICAL COORDINATOR) [facility] Method Time Signature Aspartate 29 8 - 48 POWERCHART Aminotransferase UNITL (AST), S Specimen (Source) Anatomical Collection Method Collection Time Re ceived Time Location / / Volume Laterality Blood 10/13/2013 8:04 AM DYE AND CHEMICAL COORDINATOR Piero Alejandro M.D. LAB BLOOD ADD-ON Performing Organization Address City/State/ZIP Code Phon e Number POWERCHART documented in this encounter Visit Diagnoses Not on filedocumented in this encounter
--- OUTSIDE RECORDS SUMMARY | 2022-05-28 07:28 | XMS_ITS | Encounter Summary ---
:1945 Author Organization [facility] Address [address] [place] [address] Care Team Providers Name Role Phone Unavailable Primary Care Provider Unavailable Encounter Details Date Type Department Care Team Description 04/18/[address] [facility] Piero Grier M.D. [address] [place], [place] [phone] (Wo rk) Social History [...] Result Letter 21 April 2014 JONNATHAN COSTA [address] [facility] [id number] Dear JONNATHAN COSTA, Your A1c is stable. [...] 10/13/2013 - <=5.6 Sincerely, PIERO MURILLO [address] [place] [address] Electronic Signature Electronically Signed By: PIERO MURILLO MD On: 21 April 2014 This document has images extracted. Source: [facility] Pro[employer]SeeCHART Document Id: [id number] Electronically signed by Conversion, [facility] Agricultural Sales Representative [id number] at 02/25/2017 1:43 PM CDT documented in this encounter Plan of Treatment Not on filedocumented as of this encounter Procedures Procedure Name Priority Date/Time Associated Diagnosis Comme nts LIPID PANEL, S Routine 04/18/2014 8:04 AM Results for this CDT procedure are i n the results section . documented in this encounter Results (ABNORMAL) Lipid Panel (04/18/2014 8:04 AM CDT) [facility] Method Time Signature Cholesterol, 193 0 - [...]
--- OUTSIDE RECORDS SUMMARY | 2022-05-28 07:28 | XMS_ITS | Encounter Summary ---
:1945 Author Organization [facility] Address [address] [place] [address] Care Team Providers Name Role Phone Unavailable Primary Care Provider Unavailable Encounter Details Date Type Department Care Team Description 07/07/2013 Hospital Encounter HX [facility] FAMILYPRA Piero Moya i, M.D. [address] [place] [address] (Wo rk) Social History Tobacco [...] do you attend mandaeism or Never 2021 pentecostal services? Do you [...] Weiss M.D. - 07/07/2013 9:42 AM CDT [id number] CHIEF COMPLAINT/ REASON FOR VISIT Review medications, [...] drugs. SYSTEMS REVIEW He goes to the [place] for much of his medical care. He [...] dysfunction 6. Pulmonary symptomatology, diagnosis at the [place] unclear, but probably some degree of COPD 7. Status post left cataract surgery at the [place] 8. Tonsillectomy PREVENTIVE SERVICES: Tobacco use: None. Lipid panel: 07/07/2013 Colonoscopy: ordered today. Influenza: 07/07/2013 Tetanus booster: 01/14/2009 Zoster vaccine: 06/2012 at the [place] Pneumovax: 11/15/2008 SOCIAL HISTORY He is . He doesn't smoke. 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 FAMILY HISTORY Mother had hypertension. There is no colon or prostate cancer in the family. There is no diabetes. Father had an AR at age 76. Asthma and mental illness [...] behalf by Krista Sotelo, a trained medical science liaison. The creation of this record is based on the scribe's personal observations and the provider's statements to them. This document has been christie cked and approved by the attending provider. Piero Murillo M.D./shelly Electronically Signed By: PIERO MURILLO MD On: 07/23/2013 08:17 AM Source: [facility] MHSDOLBEYNONRADSYS Document Id: [id number] documented in this encounter Nursing Notes Lucila Blevins - 11/03/2014 10:12 AM CST panel managment Document Contains Addenda Addendum by LUCILA BLEVINS LPN on 04 November 2014 13:53 BAGGAGE PORTER Pt returned call and will call in [...] BLEVINS LPN On: 11/03/2014 10:13 AM Source: [facility] POWERCHART Document Id: [id number] AGE PORTER Roxann Echols - 07/08/2013 11:42 AM CDT Colonoscopy Document Contains Addenda Addendum by ROXANN ECHOLS on 21 July 2013 16:45 CDT [facility] in [address] [address] Referral Authorization: Procedure or visit authorized for: Colonoscopy (CPT code G0105) Referred by: Dr. Murillo Contact Location: [facility] Contact Referred to: Dr. Major Contact Location: [facility] Contact Authorization Needed: yes or _ X _ no If yes, Referral valid: From: To: Number of visits approved for: Authorized by: [email or web address] provider self service Contact Number: Date Authorized: 07-21-2013 Reference Number: or not applicable per [employer]obile Taillight Assembler. Individual that received the Referral Authorization: LML Modified by and Electronically Signed by: ROXANN ECHOLS On: 07/21/2013 04:45 PM Addendum by ROXANN ECHOLS on 21 July 2013 8:50 CDT DATE: 07-21-2013 SCHEDULED FOR: Colonoscopy AT [facility] WITH DR. MAJOR DATE of Procedure: 08-10-2013 TIME of Procedure: 0900 PER: DR. MURILLO/DR. TINOCO ORDERS. Prep instructions have been sent to the patient. Patient advised to not take aspirin or ibuprofen for 10 days prior to the scheduled procedure. Insurance referral done X Yes __No Copies of referring healthcare provider notes sent to [facility]. Modified by and Electronically Signed by: ROXANN ECHOLS On: 07/21/2013 08:50 AM Addendum by ROXANN ECHOLS on 12 July 2013 10:11 CDT [facility] [place] [address] Patient Communication for follow up treatment for: _Colonoscopy_ X Attempt made to contact patient made on: _07-12-2013 (per patient's request)__. a. Patient is schedule to be seen on: . b. Patient is refusing recommended treatment at this time. c. X Message left for the patient at : _[phone]_uz return call to: Roxann Echols LPN at [phone]. d. Individual that has contacted the patient: [...] by: ROXANN ECHOLS On: 07/12/2013 10:11 AM [facility] [place] [address] Patient Communication for follow up treatment for: Colonoscopy _ __ Attempt made to contact patient made on: __[phone]; patient requested a call at another time_. a. Patient is schedule to be seen on: . b. Patient is refusing recommended treatment at this time. c. Message left for the patient at : to return call to: Roxann Echols LPN at [phone]. d. Individual that has contacted the patient: [...] ROXANN ECHOLS On: 07/08/2013 11:43 AM Source: [employer] Document Id: [id number] documented in this encounter Miscellaneous Notes Miscellaneous [...] he prefers to wait until July. [facility]: [facility] Document Id: [id number] Electronically signed by Karen [facility] Day Light Relief Operator [id number] at 02/26/2017 6:54 PM CDT Miscellaneous - Piero Weiss M.D. - 07/07/2013 12:35 PM CDT Ambulatory Patient Summary [address] [address] Visit Information Name: BETH COSTA [facility] Number: [id number] Current Date: 07/07/2013 12:35:20 [...] No Appointments found Your Goals/Additional instructions: Source: [facility] POWERCHART Document Id: [id number] Miscellaneous - Piero Weiss M.D. - 07/07/2013 12:35 PM CDT Ambulatory Depart Summary [address] [address] Visit Information Name: BETH COSTA [facility] Number: [id number] Visit Date: 07/07/2013 12:35:19 [...] your provider for clarification. Additional Information: Source: [facility] POWERCHART Document Id: [id number] Miscellaneous - Conversion, Historical Provider Ser - [...] BAGLEY LPN - 07/07/2013 10:38 CDT Source: [employer] Document Id: [id number] CDT!7 Miscellaneous - Conversion, Historical Provider Ser - 07/07/2013 10:35 AM CDT Adult Bakery Clerk Intake/History Adult Bakery Clerk Intake/History Entered On: 07/07/2013 10:37 CDT Performed [...] Mass Index : 29.8 kg/m2 JOSE BAGLEY [facility] - 07/07/2013 10:35 CDT General Info Information Given By : Patient Languages : Afghan JOSE BAGLEY [facility] - 07/07/2013 10:35 CDT Subjective Pain Symptoms : No JOSE BAGLEY ADÁN [facility] - 07/07/2013 10:35 CDT Dependent Habits Tobacco Use/Currently Using : No Tobacco Use/Last 12 months : No Smoking Status : Former smoker JOSE BAGLEY ADÁN [facility] - 07/07/2013 10:35 CDT Tobacco Use Grid Last Use : former JOSE BAGLEY ADÁN [facility] - 07/07/2013 10:35 CDT Caffeine Use Grid Caffeine Use : Current Type : Coffee Frequency : Daily JOSE BAGLEY ADÁN [facility] - 07/07/2013 10:35 CDT Recreational Drug Use Grid Drug Use : None JOSE BAGLEY ADÁN [facility] - 07/07/2013 10:35 CDT Source: [employer] Document Id: [id number] CDT!36 Miscellaneous - Conversion, Historical Provider Ser [...] Daily Living Assistance : None JOSE BAGLEY INTAKE MANAGER - 07/07/2013 10:35 CDT Dependent Habits Tobacco [...] Domestic Abuse Concerns : None JOSE BAGLEY [facility] - 07/07/2013 10:35 CDT Advance Directive Advanced Directives : No JOSE BAGLEY LPN - 07/07/2013 10:35 CDT Educ Needs Learning Style Preference Adult Grid Patient : Printed materials Family : Printed materials JOSE BAGLEY LPN - 07/07/2013 10:35 CDT Source: [facility] POWERCHART Document Id: [id number] CDT!27 documented in this encounter Plan of Treatment Not on filedocumented as of this encounter Visit Diagnoses Not on filedocumented in this encounter
--- OUTSIDE RECORDS SUMMARY | 2022-05-28 07:28 | XMS_ITS | Encounter Summary ---
:1945 Author Organization [facility] Address [address] [place] [address] Care Team Providers Name Role Phone Unavailable Primary Care Provider Unavailable Encounter Details Date Type Department Care Team Description 01/31/2015 Hospital Encounter HX [facility] FB FAMILYPRA Piero Moya i, M.D. [address] [place] [address] (Wo rk) Social History Tobacco [...] Weiss M.D. - 01/31/2015 9:01 AM CDT [id number] CHIEF COMPLAINT/ REASON FOR VISIT Review medications, [...] did have a bladder capacity checked at [place] about 3 years ago and he is fine. Jonnathan does not have any issues falling asleep. He does state that he is waking up not as much rested as previously. PHQ9 is 6, TINEO Index of Edmonson is 6, safety screening reviewed. Discussed end [...] dysfunction. 6. Pulmonary symptomatology, diagnosis at the [place] unclear, but probably some degree of COPD. 7. Status post left cataract surgery at the [place]. 8. Tonsillectomy. 9. AGNIESZKA, prescribed CPAP therapy but is currently not using. PREVENTIVE SERVICES: Tobacco use: None. Lipid panel: 07/07/2013. Colonoscopy: 08/10/13. Tetanus booster: updated today. Zoster vaccine: 06/2012 at the [place]. Pneumovax: 11/15/2008. Prevnar: updated today. SOCIAL HISTORY He is . He doesn't smoke. 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 FAMILY HISTORY Mother had hypertension. There is no colon or prostate cancer in the family. There is no diabetes. Father had an IL at age 76. Asthma and mental illness [...] their behalf by Karen Jones, a trained veterinary medical officer. The creation of this record is based on the scribe's personal observations and the provider's statements to them. This document has been checked and approved by the attending provider. Piero Hinton M.D./ Electronically Signed By: PIERO WEISS MD On: 03/15/2015 10:32 PM Source: [facility] MHSDOLBEYNONRADSYS Document Id: [id number] documented in this encounter Procedure Notes Conversion, Historical Provider Ser - 01/31/2015 9:29 AM CDT Vision Testing Vision Testing Entered On: 01/31/2015 9:30 CDT Performed On: 01/31/2015 9:29 CDT by JOSE BAGLEY LPN Vision Testing Eye, Right w/o Correction : 20/40 Eye, Left w/o Correction : 20/20 JOSE BAGLEY LPN - 01/31/2015 9:29 CDT Source: [facility] POWERCHART Document Id: [id number] CDT!4 documented in this encounter Miscellaneous Notes [...] BAGLEY LPN - 01/31/2015 12:28 CDT Source: [employer] Document Id: [id number] CDT!13 Miscellaneous - Conversion, Historical Provider Ser [...] BAGLEY LPN - 01/31/2015 9:26 CDT Source: [employer] Document Id: [id number] CDT!8 Miscellaneous - Conversion, Historical Provider Ser - 01/31/2015 9:22 AM CDT Adult Eyelet Cutter Intake/History Adult Eyelet Cutter Intake/History Entered On: 01/31/2015 9:26 CDT Performed On: 01/31/2015 9:22 CDT by MC LUNA, JOSE ADÁN [employer]GR[employer]ULTURAL ENGINEERING TECHNICIANS Intake Chief Complaint : physical Temperature Core [...] Information Given By : Patient Languages : Taiwanese Is Patient Female and 13-50 no hysterectomy : No JOSE BAGLEY [employer]ER[employer]CH[employer] - 01/31/2015 9:22 CDT Subjective Pain Symptoms : No JOSE BAGLEY IRMA - 01/31/2015 9:22 CDT Dependent Habits Tobacco Use/Currently Using : No Smoking Status : Former smoker JOSE BAGLEY [facility] - 01/31/2015 9:22 CDT Tobacco Use Grid Type : Cigarettes Last Use : quit 1980 JOSE BAGLEY [facility] - 01/31/2015 9:22 CDT Caffeine Use Grid Caffeine Use : Current Type : Coffee Frequency : Daily JOSE BAGLEY [employer]INEER[employer]CH[employer]IANS - 01/31/2015 9:22 CDT Recreational Drug Use Grid Drug Use : None JOSE BAGLEY A[employer] ENGINEER[employer] TECHNICIANS - 01/31/2015 9:22 CDT ID Screen Drug Resistant Organism : No Travel Within Last 21 Days : No Contact with someone with Ebola : No JOSE BAGLEY IRMA - 01/31/2015 9:22 CDT Source: [employer] Document Id: [id number] CDT!41 Miscellaneous - Conversion, Historical Provider Ser - 01/31/2015 9:22 AM CDT Health Assessment Health Assessment Entered On: 01/31/2015 9:26 CDT Performed On: 01/31/2015 9:22 CDT by JOSE BAGLEY A[employer]IC[employer] ENGINEER[employer] TECHNICIANS Health Assessment Complete Health Assessment Complete or Modified : Annual Health Assessment Annual Health Assessment Completed : Yes JOSE BAGLEY IRMA - 01/31/2015 9:22 CDT Nutrition Nutrition Risk Factors by History Adult : None JOSE BAGLEY IRMA - 01/31/2015 9:22 CDT Functional Current Daily Living Assistance : None JOSE BAGLEY [employer] - 01/31/2015 9:22 CDT Dependent Habits Tobacco Use/Currently Using : No Smoking Status : Former smoker JOSE BAGLEY [employer] - 01/31/2015 9:22 CDT Caffeine Use Grid Caffeine Use : Current Type : Coffee Frequency : Daily JOSE BAGLEY [employer] - 01/31/2015 9:22 CDT Recreational Drug Use Grid Drug Use : None JOSE BAGLEY [facility] - 01/31/2015 9:22 CDT Psychosocial Domestic Abuse Concerns : None Behavioral Health Screen/Safety Assmt : No Sabianism Preference : Unknown JOSE BAGLEY [facility] - 01/31/2015 9:22 CDT Advance Directive Advanced Directives : No Advance Directive Additional Information : No JOSE BAGLEY [facility] - 01/31/2015 9:22 CDT Educ Needs Learning Style Preference Adult Grid Patient : Printed materials Family : Printed materials JOSE BAGLEY [facility] - 01/31/2015 9:22 CDT Source: [facility] [email or web address] Textbook TimeCHART Document Id: [id number] CDT!30 documented in this encounter Plan of [...] Erythrocytes 4.12 (L) 4.32 - POWERCHART 5.72 [id number] Hemoglobin 12.6 (L) 13.5 - POWERCHART 17.5 [...] for FH and FDB is available throu [facility]: FH/ADH Genetic Reflex Saleh [...] at or the on-line test catalog at [facility] for information about how to order these [...]
--- OUTSIDE RECORDS SUMMARY | 2022-05-28 07:28 | XMS_ITS | Encounter Summary ---
:1945 Author Organization [facility] Address [address] [place] [address] Care Team Providers Name Role Phone Unavailable [...] Comments Blood Pressure 136/76 08/17/2013 2:11 PM CLIENT RELATIONSHIP EXECUTIVE Pulse - - Temperature - - Respiratory [...] Major M.D. - 08/17/2013 1:43 PM CST [id number] I spent about 15 minutes with this [...] MAJOR MD On: 09/02/2013 10:36 AM Source: [facility] MHSDOLBEYNONRADSYS Document Id: [id number] RELATIONSHIP EXECUTIVE documented in this encounter Miscellaneous Notes Miscellaneous - Roxann Echols - 08/17/2013 3:41 PM CST Reminder Msg-Schedule Colonoscopy From: ROXANN ECHOLS (FB Surgery Nurse) To: FB Surgery Nurse; Sent: 08/17/2013 15:41:53 CLIENT RELATIONSHIP EXECUTIVE Show up: 07/10/2018 15:41:00 CDT Subject: Reminder Msg-Schedule Colonoscopy Due Date/Time: 08/10/2018 15:41:00 CLIENT RELATIONSHIP EXECUTIVE Please Remember to: Schedule colonoscopy; rescope in [address] Major intermediate risk; hx of polpys; last one 08-10-13 PATIENT: ( ) Call Patient ( ) Ask Patient to ( ) ( ) Call Relative ( ) Schedule Patient ( ) ( ) Call for Specialty Development Consultant ( ) Follow up on Results ( ) Other: PROVIDER: ( ) Call Physician ( ) Call Pharmacist ( ) Call Lab ( ) Other: Special Instructions: Comments: Source: [facility] POWERCHART Document Id: [id number] Electronically signed by Karen [facility] Chamber Magistrate [id number] at 02/26/2017 5:00 PM CDT Miscellaneous - Kyree Major M.D. - 08/17/2013 2:44 PM CST Ambulatory Patient Summary [address] [address] Visit Information Name: JONNATHAN COSTA [facility] Number: [id number] Current Date: 08/17/2013 14:44:55 Physicians [...] appointment detail needed. Your Goals/Additional instructions: Source: [facility] POWERCHART Document Id: [id number] NT RELATIONSHIP EXECUTIVE Miscellaneous - Kyree Major M.D. - 08/17/2013 2:44 PM CST [place] [address] Visit Information Name: JONNATHAN COSTA [facility] Number: [id number] Visit Date: 08/17/2013 14:44:55 Attending [...] your provider for clarification. Additional Information: Source: [facility] [employer] Document Id: [id number] NT RELATIONSHIP EXECUTIVE Miscellaneous - Roxann Echols - 08/17/2013 2:11 PM CST Adult Oyster Worker Intake/History Adult Oyster Worker Intake/History Entered On: 08/17/2013 14:12 CLIENT RELATIONSHIP EXECUTIVE Performed On: 08/17/2013 14:11 CLIENT RELATIONSHIP EXECUTIVE by ROXANN ECHOLS Intake Chief Complaint : colonoscopy results Temperature Core : 36.6 DegC(Converted to: 97.9 DegF) Systolic Blood Pressure : 136 mmHg Diastolic Blood Pressure : 76 mmHg NIBP Mean : 96 mmHg BP Location : Left upper extremity Blood Pressure Cuff Size : Regular ROXANN ECHOLS - 08/17/2013 14:11 CLIENT RELATIONSHIP EXECUTIVE General Info Languages : Swedish ROXANN ECHOLS - 08/17/2013 14:11 CLIENT RELATIONSHIP EXECUTIVE Subjective Pain Symptoms : No ROXANN ECHOLS - 08/17/2013 14:11 CLIENT RELATIONSHIP EXECUTIVE Dependent Habits Tobacco Use/Currently Using : No Smoking Status : Former smoker ROXANN ECHOLS - 08/17/2013 14:11 CLIENT RELATIONSHIP EXECUTIVE Tobacco Use Grid Last Use : former ROXANN ECHOLS - 08/17/2013 14:11 CLIENT RELATIONSHIP EXECUTIVE Caffeine Use Grid Caffeine Use : Current Type : Coffee Frequency : Daily ROXANN ECHOLS - 08/17/2013 14:11 CLIENT RELATIONSHIP EXECUTIVE Recreational Drug Use Grid Drug Use : None ROXANN ECHOLS - 08/17/2013 14:11 CLIENT RELATIONSHIP EXECUTIVE Source: [facility] [employer] Team[employer] Document Id: [id number] CLIENT RELATIONSHIP EXECUTIVE!27 NT RELATIONSHIP EXECUTIVE documented in this encounter Plan of Treatment Not on filedocumented as of this encounter Visit Diagnoses Not on filedocumented in this encounter
--- OUTSIDE RECORDS SUMMARY | 2022-05-28 07:28 | XMS_ITS | Encounter Summary ---
:1945 Author Organization [facility] Address [address] [place] [address] Care Team Providers Name Role Phone Unavailable Primary Care Provider Unavailable Encounter Details Date Type Department Care Team Description 08/09/2013 Hospital Encounter HX [facility] Piero Moya i, M.D. [address] [place] [phone] (Wo rk) Social History Tobacco [...] do you attend islam or Never 2021 mandaeism services? Do you [...] Comments Blood Pressure 138/76 08/09/2013 10:17 AM TIP PRINTER Pulse 68 08/09/2013 10:15 AM TIP PRINTER Temperature - - Respiratory Rate 16 08/09/2013 10:15 AM TIP PRINTER Oxygen Saturation - - Inhaled Oxygen Concentration - - Weight 112 kg (246 lb 14.6 oz) 08/09/2013 10:15 AM TIP PRINTER Height 192 cm (6' 3.59) 08/09/2013 10:15 AM TIP PRINTER Body Mass Index 30.38 08/09/2013 10:15 AM TIP PRINTER documented in this encounter Medications at Time [...] Rojas M.D. - 08/09/2013 10:00 AM CST [id number] CHIEF COMPLAINT/ REASON FOR VISIT Discuss test [...] Hypercholesterolemia: [facility]. He will discontinue [...] behalf by Krista Sotelo, a trained medical records specialist. The creation of this record is based on the scribe's personal observations and the provider's statements to them. This document has been christie cked and approved by the attending provider. Piero Roy M.D./shelly Electronically Signed By: PIERO ROY MD On: 08/22/2013 11:04 PM Source: [facility] [email or web address] Document Id: [id number] PRINTER documented in this encounter Miscellaneous Notes Miscellaneous - Lucila Crain - 12/28/2014 2:26 PM CDT *Medication Refill Msg Document Contains Addenda Addendum by FREYA REICH on 29 December 2014 07:16:25 CDT last message put in error. Addendum by FREYA REICH on 29 December 2014 07:15:47 CDT From: FREYA REICH ([facility] Medication Refill) To: PIERO ROJAS MD; Sent: 12/29/2014 07:15:47 CDT Subject: RE: *Medication Refill Msg I pulled it off fax machine and put on your desk for signature. Addendum by PIERO ROJAS MD on 28 December 2014 17:57:02 CDT From: PIERO ROJAS MD To: [facility] Medication Refill; Sent: 12/28/2014 17:57:02 CDT Subject: RE: *Medication Refill Msg ok done Addendum by FREYA REICH on 28 December 2014 14:29:50 CDT From: FREYA REICH ( [facility] Medication Refill) To: PIERO ROJAS MD; Sent: 12/28/2014 14:29:50 CDT Subject: FW: *Medication Refill Msg From: LUCILA CRAIN LPN To: [facility] Medication Refill; Sent: 12/28/2014 14:26:39 CDT Subject: *Medication Refill Msg Caller is: ( x ) Patient ( ) Mother ( ) Father ( ) Spouse ( ) Daughter ( ) Son ( ) Pharmacy ( ) Other: Provider: [facility] Name of Medications Needing Refill: Novalog insulin Last Refill Date: usually gets through [facility], but hasn't heard from them and needs for trip he will be taking next week Additional Information: indicates takes 15 units three times daily with meals Last / Future Appointment:08/09/13/ last A1c 04/18/14-7.8-will be scheduling appointment with Dr. 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 - 03/29/2014 [...] was last seen 08/09/2013. Please advise. Source: [facility] POWERCHART Document Id: [id number] Miscellaneous - Natalee Warren, L.P.N. - 12/28/2013 [...] March for all labs? Please advise. Source: [facility] [email or web address] Document Id: [id number] Miscellaneous - Vashti Mcintosh L.PMauroN. - 09/23/2013 10:46 AM CST Diabetic Call Document Contains Addenda Addendum by VASHTI MCINTOSH LPN on 28 September 2013 9:22 TIP PRINTER Start dates changed to 10/20/2013. Addendum by PIERO ROY MD on 26 September 2013 11:46:56 TIP PRINTER From: PIERO ROY MD To: VASHTI MCINTOSH LPN; Sent: 09/26/2013 11:46:56 TIP PRINTER Subject: RE: Diabetic Call ok From: VASHTI MCINTOSH LPN To: PIERO ROY MD; Sent: 09/23/2013 10:46:04 TIP PRINTER Subject: Diabetic Call Patient due for a [...] Please advise. Source: [facility] POWERCHART Document Id: [id number] PRINTER Miscellaneous - Piero Rojas M.D. - 08/09/2013 11:24 AM TIP PRINTER Ambulatory Patient Summary [address] [address] Visit Information Name: BETH DURANOLAS [facility] Number: [id number] Current Date: 08/09/2013 11:24:00 Physicians Attending Provider: PIERO ROY MD Primary Care Provider: PIERO RYO MD RENEE BETH HILL has been given [...] appointment detail needed. Your Goals/Additional instructions: Source: [facility] POWERCHART Document Id: [id number] PRINTER Miscellaneous - Piero Rojas M.D. - 08/09/2013 11:23 AM TIP PRINTER Ambulatory Depart Summary [address] [address] Visit Information Name: BETH DURAN [facility] Number: [id number] Visit Date: 08/09/2013 11:23:59 [...] your provider for clarification. Additional Information: Source: [facility] POWERCHART Document Id: [id number] PRINTER Miscellaneous - Conversion, Historical Provider Ser - 08/09/2013 10:17 AM TIP PRINTER Ambulatory Vitals Height Weight Ambulatory Vitals Height Weight Entered On: 08/09/2013 10:17 TIP PRINTER Performed On: 08/09/2013 10:17 TIP PRINTER by JOSE BAGLEY LPN Vitals/Ht/Wt Systolic Blood Pressure : 138 mmHg Diastolic Blood Pressure : 76 mmHg NIBP Mean : 97 mmHg BP Location : Left upper extremity Blood Pressure Cuff Size : Regular JOSE BAGLEY LPN - 08/09/2013 10:17 TIP PRINTER Source: [facility] POWERCHART Document Id: [id number] TIP PRINTER!7 Miscellaneous - Conversion, Historical Provider Ser - 08/09/2013 10:15 AM TIP PRINTER 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 Operations Manager Intake/History Document Has Been Updated 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 Operations Manager Intake/History Entered On: 08/09/2013 10:17 TIP PRINTER Performed On: 08/09/2013 10:15 TIP PRINTER by JOSE BAGLEY LPN Intake Chief Complaint [...] Mass Index : 30.38 kg/m2 JOSE BAGLEY [facility] - 08/09/2013 10:15 TIP PRINTER General Info Information Given By : Patient Languages : Emirati JOSE BAGLEY [facility] - 08/09/2013 10:15 TIP PRINTER Subjective Pain Symptoms : No JOSE BAGLEY [facility] - 08/09/2013 10:15 TIP PRINTER Dependent Habits Tobacco Use/Currently Using : No Tobacco Use/Last 12 months : No Smoking Status : Former smoker JOSE BAGLEY [facility] - 08/09/2013 10:15 TIP PRINTER Tobacco Use Grid Last Use : former JOSE BAGLEY [facility] - 08/09/2013 10:15 TIP PRINTER Caffeine Use Grid Caffeine Use : Current Type : Coffee Frequency : Daily JOSE BAGLEY [facility] - 08/09/2013 10:15 TIP PRINTER Recreational Drug Use Grid Drug Use : None JOSE BAGLEY [facility] - 08/09/2013 10:15 TIP PRINTER Allergy (As Of: 08/09/2013 10:17:37 TIP PRINTER) Allergies (Active) doxycycline Estimated Onset Date: Unspecified ; Reactions: severe rash ; Created By: HILARY PASCUAL MD; Reaction Status: Active ; Category: Drug ; Substance: doxycycline ; Type: Allergy ; Updated By: KELLY PASCUAL MD; Reviewed Date: 08/09/2013 10:13 TIP PRINTER penicillin Estimated Onset Date: Unspecified ; Created By: ALEIDA HEAD LPN; Reaction Status:Active ; Category: Drug ; Substance: penicillin ; Type: Allergy ; Updated By: ALEIDA HEAD LPN; Source: Paper Chart/Abstracting ; Reviewed Date: 08/09/2013 10:13 TIP PRINTER sulfa drugs Estimated Onset Date: Unspecified ; Created By: ALEIDA HEAD LPN; Reaction Status: Active ; Category: Drug ; Substance: sulfa drugs ; Type: Allergy ; Updated By: ALEIDA HEAD LPN; Source: Paper Chart/Abstracting ; Reviewed Date: 08/09/2013 10:13 TIP PRINTER Source: [facility] POWERCHART Document Id: [id number] TIP PRINTER!36 documented in this encounter Plan of Treatment Not on filedocumented as of this encounter Visit Diagnoses Not on filedocumented in this encounter
--- OUTSIDE RECORDS SUMMARY | 2022-05-28 07:28 | XMS_ITS | Encounter Summary ---
:1945 Author Organization [facility] Address [address] [place] [address] Care Team Providers Name Role Phone Unavailable Primary Care Provider Unavailable Encounter Details Date Type Department Care Team Description 10/13/2013 Hospital Encounter [facility]X [facility] Ewa Grier M.D. [address] [place], [place] [phone] (Wo rk) Social History [...] do you attend restoration or Never 2021 yazidi services? Do you [...] 10/13/2013 8:04 AM Resu lts for this HEMSTITCHING MACHINE OPERATOR procedure are i n the results section. documented in this encounter Results (ABNORMAL) Hemoglobin A1c (10/13/2013 8:04 AM HEMSTITCHING MACHINE OPERATOR) P athologist Signature Hemoglobin A1c, 7.7 (H) 4.0 - 6.0 POWERCHART B Specimen (Source) Anatomical Collection Method Collection Time Re ceived Time Location / / Volume Laterality Blood 10/13/2013 8:04 AM HEMSTITCHING MACHINE OPERATOR Ewa Alejandro M.D. LAB BLOOD ADD-ON Performing Organization Address City/State/ZIP Code Phon e Number POWERCHART documented in this encounter Visit Diagnoses Not on filedocumented in this encounter
--- OUTSIDE RECORDS SUMMARY | 2022-05-28 07:28 | XMS_ITS | Encounter Summary ---
:1945 Author Organization [facility] Address [address] [place] [address] Care Team Providers Name Role Phone Unavailable Primary Care Provider Unavailable Encounter Details Date Type Department Care Team Description 07/19/2013 Hospital Encounter HX [facility] LAB Piero Grier M.D. [address] [place], [place] [phone] (Wo rk) Social History [...] do you attend jain or Never 2021 bahai services? Do you [...] need to make some medication changes. Source: [facility] POWERCHART Document Id: [id number] Electronically signed by Conversion, [facility] Stain Dipper [id number] at 02/26/2017 2:51 AM CDT documented in [...] absence of malignant disease. Test Performed by: [place] [address] Offset Printing Operator: Naveen cox III, M.D. Specimen (Source) Anatomical [...] M.D. LAB BLOOD ADD-ON Performing Organization Address City/[facility] Code Phon e Number POWERCHART AST (Aspartate Aminotransferase) (07/19/2013 9:23 AM CDT) [facility] Method Time Signature Aspartate 31 8 - 48 POWERCHART Aminotransferase UNITL (AST), S Specimen (Source) Anatomical Collection Method Collection Time Re ceived Time Location / / Volume Laterality Blood 07/19/2013 9:23 AM CDT Piero Alejandro M.D. LAB BLOOD ADD-ON Performing Organization Address City/[facility]/ZIP Code Phon e Number POWERCHART (ABNORMAL) Lipid Panel (07/19/2013 9:23 AM CDT) [facility] gist Method Time Signature Cholesterol, 204 [...]
--- OUTSIDE RECORDS SUMMARY | 2022-05-28 07:28 | XMS_ITS | Encounter Summary ---
:1945 Author Organization [facility] Address [address] [place] [address] Care Team Providers Name Role Phone Unavailable [...] do you attend jew or Never 2021 hindu services? Do you [...]
--- OUTSIDE RECORDS SUMMARY | 2022-05-28 07:28 | XMS_ITS | Encounter Summary ---
:1945 Author Organization [facility] Address [address] [place] [address] Care Team Providers Name Role Phone Unavailable Primary Care Provider Unavailable Encounter Details Date Type Department Care Team Description 01/31/2009 Hospital Encounter HX NO MAPPING Toño Phillips M.D. [address] [place], [place] [address] (Wo rk) Social History [...] do you attend hoahaoism or Never 2021 rastafari services? Do you [...]
--- OUTSIDE RECORDS SUMMARY | 2022-05-28 07:28 | XMS_ITS | Encounter Summary ---
:1945 Author Organization [facility] Address [address] [place] [address] Care Team Providers Name Role Phone Unavailable Primary Care Provider Unavailable Encounter Details Date Type Department Care Team Description 10/16/2009 Hospital Encounter HX NO MAPPING Toño Phillips M.D. [address] [place], [place] [address] (Wo rk) Social History [...] do you attend hinduism or Never 2021 baptism services? Do you [...] lts for this AND LATERAL 2 VIEWS MEMBERSHIP COORDINATOR procedur e are in the results section. documented in this encounter Results DX Chest AP or PA and Lateral 2 Views (10/16/2009 4:40 PM MEMBERSHIP COORDINATOR) Anatomical Region Laterality Modality Chest N/A Radiographic Imaging Specimen (Source) Anatomical Collection Method Collection Time Re ceived Time Location / / Volume Laterality 10/16/2009 4:40 PM MEMBERSHIP COORDINATOR Addenda Addendum by Provider, Pato Chase n 10/16/2009 4:40 PM MEMBERSHIP COORDINATOR RAD^^^OW XR Chest 2 Views 10/16/2009 16:40:00 Addendum by ProviderRena M.D. o n 10/16/2009 4:40 PM MEMBERSHIP COORDINATOR RAD^^^MA XR CHEST 2 VIEWS 10/16/2009 16:40:00 Narrative 10/16/2009 5:09 PM MEMBERSHIP COORDINATOR FINDINGS: The heart is normal in size [...]
--- OUTSIDE RECORDS SUMMARY | 2022-05-28 07:28 | XMS_ITS | Encounter Summary ---
:1945 Author Organization [facility] Address [address] [place] [address] Care Team Providers Name Role Phone Unavailable Primary Care Provider Unavailable Encounter Details Date Type Department Care Team Description 03/28/2003 Hospital Encounter HX [facility] Cooper Bateman M.D. [facility] [place], [place] [address] (Wo rk) Social History [...]
--- OUTSIDE RECORDS SUMMARY | 2022-05-28 07:28 | XMS_ITS | Encounter Summary ---
:1945 Author Organization [facility] Address [address] [place] [address] Care Team Providers Name Role Phone Unavailable [...] do you attend faith or Never 2021 anabaptist services? Do you [...]
--- OUTSIDE RECORDS SUMMARY | 2022-05-28 07:28 | XMS_ITS | Encounter Summary ---
:1945 Author Organization [facility] Address [address] [place] [address] Care Team Providers Name Role Phone Unavailable [...] do you attend yarsanism or Never 2021 gnosticist services? Do you [...]
--- OUTSIDE RECORDS SUMMARY | 2022-05-28 07:28 | XMS_ITS | Encounter Summary ---
:1945 Author Organization [facility] Address [address] [place] [address] Care Team Providers Name Role Phone Unavailable Primary Care Provider Unavailable Encounter Details Date Type Department Care Team Description 02/09/2015 Hospital Encounter HX NO MAPPING Ewa Alejandro M.D. [address] [place], [place] [phone] (Wo rk) Social [...] do you attend episcopal or Never 2021 mandaeism services? Do you [...] Coding Summary-Paper Based CODING DATE: 02/21/2015 FINAL [facility] STATUS: * Discharged to Home [...] LYMAN Date Saved: 02/21/2015 03:40 pm [facility] P[facility] Document Id: [id number] documented in this encounter Plan of Treatment Not on filedocumented as of this encounter Visit Diagnoses Not on filedocumented in this encounter Additional Health Concerns Assessment Noted Time PHQ-9 Depression Total Score: 6 01/31/2015 12:28 PM CD T documented as of this encounter
--- OUTSIDE RECORDS SUMMARY | 2022-05-28 07:28 | XMS_ITS | Encounter Summary ---
:1945 Author Organization [facility] Address [address] [place] [address] Care Team Providers Name Role Phone Unavailable [...] do you attend anabaptist or Never 2021 samaritan services? Do you [...]
--- OUTSIDE RECORDS SUMMARY | 2022-05-28 07:28 | XMS_ITS | Encounter Summary ---
:1945 Author Organization [facility] Address [address] [place] [address] Care Team Providers Name Role Phone Unavailable Primary Care Provider Unavailable Encounter Details Date Type Department Care Team Description 03/03/2003 Hospital Encounter HX [facility] Oni Felix M.D. [address] [place], [place] [phone] (Wo rk) Social History [...] do you attend evangelical or Never 2021 congregation services? Do you [...]
--- OUTSIDE RECORDS SUMMARY | 2022-05-28 07:29 | XMS_ITS | Continuity of Care Document ---
:1945 Author Organization [facility] Care Team Providers Name Role Phone [facility] Unavailable Unavailable Problems Combined list of problems from Department of Defense and Veterans Affairs facilities. It does not include entries that were removed or entered in error. Problem Status Onset Problem Type Date of Comments Source Date Resolution Anemia Active [place] [facility] Asthma (SNOMED CT Active Condition [place] [id number]) [facility] Carcinoma of bladder Active Condition [facility] Congestive heart Active Condition [place] [facility] CVA - Active Condition Dec 31, [place] Cerebrovascular 2021 Entered V A [facility] accident By: CED EPSTEIN Comment: 11/2020, outside hospital. 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 without [facility] Urinary obstruction (ICD-9-CM 600.00) Obesity * (ICD-9-CM Active Condition Sep 09 [place] 278.00) 2012 Entered [facility] By: SAMMY ALEGRIA Comment: 10 TOPIC GRAD 07-09-2012* 244.0 --> 09-17-12* 243.2 lbs Obstructive sleep Active Condition [place] apnea (SNOMED CT [facility] 04345915) Rosacea Active Condition [place] [facility] Tinnitus * (ICD-9-CM Active Condition [place] 388.30) [facility] Type 2 diabetes Active Condition [place] mellitus (SNOMED CT [facility] 30105793) Umbilical hernia Active Condition [place] (SNOMED CT [facility] 732745742) Diagnosis: ICD-10-CM active Diagnosis [place] Z71.89 Other [facility] specified counselingwith Provider Comments: Other specified Counseling Diagnosis: ICD-10-CM active Diagnosis [place] R53.1 Weaknesswith V A HCS Provider Comments: Weakness Diagnosis: ICD-10-CM active Diagnosis [place] Z95.818 Presence of [facility] other cardiac implants and graftswith Provider Comments: Presence of other cardiac implants and grafts Diagnosis: ICD-10-CM active Diagnosis [place] I63.9 Cerebral [facility] infarction, unspecifiedwith Provider Comments: Cerebral infarction Diagnosis: ICD-10-CM active Diagnosis [place] M62.81 Muscle [facility] weakness (generalized)with Provider Comments: Muscle Weakness (Generalized) Diagnosis: ICD-10-CM active Diagnosis [place] I63.9 Cerebral [facility] infarction, unspecifiedwith Provider Comments: CVA - Cerebrovascular accident ([facility] [id number]) Diagnosis: ICD-10-CM active Diagnosis [place] R13.10 Dysphagia, [facility] unspecifiedwith Provider Comments: Dysphagia, unspecified Diagnosis: ICD-10-CM active Diagnosis [place] E11.8 Type 2 [facility] diabetes mellitus with unspecified complicationswith Provider Comments: Type 2 diabetes mellitus ([facility] [id number]) Diagnosis: ICD-10-CM active Diagnosis [place] K08.531 Fractured [facility] dental restorative material with loss of materialwith Provider Comments: Fractured dental restorative material with loss of material Diagnosis: ICD-10-CM active Diagnosis [place] K02.52 Dental caries [facility] on pit and fissure surfc penetrat into dentinwith Provider Comments: Dental caries on pit and fissure surface penetrating into dentin Diagnosis: ICD-10-CM active Diagnosis [place] E11.65 Type 2 [facility] diabetes mellitus with hyperglycemiawith Provider Comments: Type 2 Diabetes Mellitus with Hyperglycemia Diagnosis: ICD-10-CM active Diagnosis [place] Z71.3 Dietary [facility] counseling and surveillancewith Provider Comments: Dietary counseling and surveillance Diagnosis: ICD-10-CM active Diagnosis [place] Z23 Encounter for [facility] immunizationwith Provider Comments: Encounter for Immunization (ICD-10-CM Z23.) Diagnosis: ICD-10-CM active Diagnosis [place] 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 Provider Comments: Type 2 Diabetes Mellitus with Diabetic Nephropathy Diagnosis: ICD-10-CM active Diagnosis [place] H90.3 Sensorineural [facility] hearing loss, bilateralwith Provider Comments: Sensorineural hearing loss, bilateral Diagnosis: ICD-10-CM active Diagnosis [place] E11.8 Type 2 [facility] diabetes mellitus with unspecified complicationswith Provider Comments: Type 2 diabetes mellitus with unspecified complications (ICD-10-CM E11.8) Diagnosis: ICD-10-CM active Diagnosis [place] I50.9 Heart failure, [facility] unspecifiedwith Provider Comments: Congestive heart failure (SNOMED CT 37149985) Medications Combined list of outpatient medications from Department of Defense and Veterans Affairs facilities. Medications provided include 1) outpatient medications from the last 15 months, and 2) patient-reported medications. Medication Details Route Status Patient Prescription Prescription Last Ordering Order Source Instructions Expires Number Dispense Provider Date Date ATORVASTATI TAKE ONE ORALLY DISCONT 06/15/2022 [id number] STOCK,T[place] 06/14/ [place] 80MG TABLET INUED 2 ON 2020 [place] [facility] TAB [facility] AT BEDTIME FOR CHOLESTE ROL ATORVASTATI TAKE ONE ORALLY 05/11/2021 [id number] SONG 05/10/ [place] 80MG TABLET 1 ,2019 [place] [facility] TAB [facility] AT BEDTIME FOR CHOLESTE ROL BUDESONIDE INHALE 2 INHALA 2021 [id number] [facility] 07/06/ [place] 160MCG/FORM PUFFS BY TION 1 ,2019 [facility] OTEROL FUM INHALATI HCS 4.5MCG/SPRA ON TWICE Y A DAY INHL,ORAL,1 FOR 0.2GM ASTHMA, TO PREVENT TROUBLE BREATHIN G -RINSE MOUTH AFTER USING CLOPIDOGREL TAKE ONE ORALLY DISCONT 09/01/2022 [id number] STOCK,TYS 08/31/ [place] BISULFATE TABLET INUED 2 ON 2020 [place] [facility] 75MG TAB BY MOUTH HCS EVERY DAY INDEFINI TELY TO PREVENT BLOOD CLOTS and STROKE CLOPIDOGREL TAKE ONE ORALLY 08/03/2021 [id number] [place] 08/04/ [place] BISULFATE TABLET 1 ,2019 [place] [facility] 75MG TAB BY MOUTH HCS EVERY DAY INDEFINI TELY TO PREVENT BLOOD CLOTS and STROKE EMPAGLIFLOZ TAKE ONE ORALLY DISCONT 07/18/2022 [id number] STOCK,TYS 07/19/ [place] IN 25MG TAB TABLET INUED 2 ON 2020 [place] [facility] BY MOUTH [facility] EVERY DAY EMPAGLIFLOZ TAKE ORALLY DISCONT 05/16/2022 [id number] ANKIR ABRAN 05/16/ [place] IN 25MG TAB ONE-HALF INUED 1 PALLI,ANV 2020 [facility] [place] TABLET (EDIT) ITHA R HCS BY MOUTH EVERY DAY ESCITALOPRA TAKE ONE ORALLY DISCONT 06/15/2022 [id number] STOCK,TYS 06/14/ [place] OXALATE TABLET INUED 1 ON 2020 [place] [facility] 10MG TAB BY MOUTH HCS EVERY DAY FOR MOOD ESCITALOPRA TAKE ONE ORALLY DISCONT 06/27/2021 [id number] [place] 06/27/ [place] M OXALATE TABLET INUE 1 ,[place] 2019 [place] 10MG TAB BY MOUTH HCS EVERY DAY FOR MOOD GLUCOSE 4GM CHEW ORALLY DISCONT 07/10/2022 [id number] STOCK ,TYS 07/11/ [place] TAB,CHEW FOUR INUED 1 ON 2020 [facility] TABLETS HCS BY MOUTH NEEDED FOR LOW BLOOD SUGAR INDOMETHACI TAKE ONE ORALLY DISCONT 09/01/2022 [id number] STOCK,TYS 09/04/ [place] 25MG CAP TO TWO INUED 1 ON 2020 [place] [facility] CAPSULES H[facility] BY MOUTH THREE TIMES A DAY NEEDED GOUT EXACERBA TION INSULIN,ASP INJECT SUBCUT DISCONT 05/19/2022 [id number] AN KIREDDY 06/23/ [place] ART,HUMAN 10 UNITS [...] FOR DIABETES INSULIN,ASP INJECT SUBCUT DISCONT 11/17/2021 [id number] S TOCK,TYS 01/16/ [place] ART,HUMAN 10 UNITS ANEOUS INUE 1 ON W 2020 [facility] A 100U/ML,NOV UNDER HCS OLOG,FLEXPE THE SKIN N,3ML BEFORE MEALS WITH SNACKS *TAKE ONLY WITH FOOD INTAKE* INSULIN,GLA INJECT SUBCUT DISCONT 11/23/2022 [id number] S TOCK,TYS 11/23/ [place] RGINE,HUMAN 28 UNITS ANEOUS INUED 2 ON 2021 [place] [facility] 100 UNIT/ML UNDER HCS INJ,SOLOSTA THE SKIN R,3ML AT BEDTIME *DO NOT MIX WITH OTHER INSULINS INSULIN,GLA INJECT SUBCUT DISCONT 11/17/[id number] OCK,TYS 11/17/ [place] RGINE,HUMAN 28 UNITS ANEOUS INUE 1 ON W 2020 [place] [facility] 100 UNIT/ML UNDER HCS INJ,SOLOSTA THE SKIN R,3ML AT BEDTIME *DO NOT MIX WITH OTHER INSULINS ISOSORBIDE TAKE ONE ORALLY DISCONT 05/11/2021 [id number] S [place] 05/10/ [place] MONONITRATE TABLET INUED 1 ,[place] 2019 [place] [facility] 60MG TAB,SA BY MOUTH HCS EVERY MORNING LEVOTHYROXI TAKE ONE ORALLY DISCONT 03/22/2022 [id number] STOCK,TYS 03/22/ [place] NA TABLET INUED 2 ON 2020 [place] [facility] 100MCG TAB BY MOUTH HCS (SYNTHROID) EVERY DAY FOR THYROID LOSARTAN TAKE ONE ORALLY DISCONT 11/13/2022 [id number] STO CK,TYS 11/13/ [place] 50MG TAB TABLET INUED 2 ON 2021 [place] [facility] BY MOUTH [facility] EVERY DAY LOSARTAN TAKE ORALLY DISCONT 03/22/2022 [id number] STOCK,TY S 03/22/ [place] 50MG TAB ONE-HALF INUED 2 ON 2020 [place] [facility] TABLET (EDIT) HCS BY MOUTH EVERY DAY METFORMIN TAKE TWO ORALLY DISCONT 04/04/2022 [id number] FE RNANDES 04/04/ [place] HCL 500MG TABLETS INUED 1 -EDITA,AN 2020 [place] [facility] 24HR TAB,SA BY MOUTH DYROSE HCS EVERY MORNING FOR DIABETES METFORMIN TAKE ONE ORALLY DISCONT 03/01/2022 [id number] FE RNANDES 02/28/ [place] HCL 500MG TABLET INUED 1 -EDITA,AN 2020 [place] [facility] 24HR TAB,SA BY MOUTH DYROSE HCS EVERY DAY FOR 7 DAYS, THEN TAKE TWO TABLETS EVERY DAY FOR DIABETES METOPROLOL TAKE ORALLY DISCONT 03/01/2022 [id number] STOCK, TYS 02/28/ [place] SUCCINATE ONE-HALF INUED 2 ON W 2020 [place] [facility] 50MG TAB,SA TABLET HCS BY MOUTH EVERY DAY FOR HEART FAILURE AND BLOOD PRESSURE SEMAGLUTIDE INJECT SUBCUT DISCONT 11/21/2022 [id number] SI BLEY,SH 11/22/ [place] 0.5MG/0.375 0.25MG ANEOUS INUED 2 ALAMAR D 2021 [facility] ML UNDER HCS INJ,SOLN,PE THE SKIN N,1.5ML EVERY WEEK FOR 4 WEEKS, THEN INJECT 0.5MG EVERY WEEK FOR WEIGHT AND TYPE 2 DIABETES TORSEMIDE TAKE ONE ORALLY DISCONT 11/13/[id number] OCK,TYS 11/14/ [place] 20MG TAB TABLET INUED 2 ON 2021 [place] [facility] BY MOUTH [facility]CS EVERY MORNING FOR SWELLING TORSEMIDE TAKE TWO ORALLY DISCONT 03/22/[id number] OCK,TYS 03/22/ [place] 20MG TAB TABLETS INUED 2 ON 2020 [place] [facility] BY MOUTH (EDIT) HCS TWICE A DAY FOR SWELLING *TAKE IN MORNING AND AT NOON* TORSEMIDE TAKE TWO ORALLY DISCONT 06/14/[id number] [place] 06/14/ [place] 20MG TAB TABLETS INUED 1 ,[place] 2019 [place] [facility] BY MOUTH (EDIT) HCS EVERY MORNING FOR EDEMA/SW ELLING TRAZODONE TAKE ONE ORALLY DISCONT 06/14/[id number] [place] 06/14/ [place] HCL 100MG TABLET INUED 1 ,[place] 2019 [place] [facility] TAB BY MOUTH [facility] EVERY EVENING NEEDED FOR SLEEP TRAZODONE TAKE ONE ORALLY DISCONT 09/01/[id number] OCK,TYS 08/31/ [place] HCL 50MG TABLET INUED 1 ON W 2020 [place] [facility] TAB BY MOUTH HCS AT BEDTIME NEEDED FOR SLEEP TRAZODONE TAKE ONE ORALLY DISCONT 07/18/[id number] OCK,TYS 07/18/ [place] HCL 50MG TABLET [...] atus Comments Source Given By Number Code Surgical Scheduler INFLUENZA, complet [place] INJECTABLE, 2020 ed [facility] QUADRIVALENT, HCS PRESERVATIVE FREE COVID-[address] [place] (MODERNA), 2020 ed [facility] MRNA, LNP-S, H CS PF, 100 MCG/0.5 ML DOSE COVID-[address] [place] (MODERNA), 2020 ed [facility] [...] Wyet h [place] CONJUGATE PCV 2014 ed [id number] [facility] 13 exp12/13 HCS INFLUENZA, complet [...] and [place] 2011 ed co. [facility] [id number] HCS 09/17/13 INFLUENZA, complet [place] UNSPECIFIED 2011 ed [facility] FORMULATION HC S INFLUENZA, complet [place] UNSPECIFIED 2010 ed [facility] INFLUENZA, complet [place] UNSPECIFIED 2009 ed [facility] FORMULATION [facility] S NOVEL complet [employer] [place] INFLUENZA-H1N 2009 ed [place] [facility] 10-07, [...] M [place] (HISTORICAL) 2005 ed [facility] [place] HCS Results Combined list of recent chemistry, hematology and other laboratory results from Department of Defense and Veterans Affairs, ranging from 15 months to all on record, depending upon the facility. Order Results Value Reference Date Interpretation Specimen Commen ts Source Name Range COVID-19 SARS-RELAT DETECTED 11/30 HH Specimen Ty pe: NASOPHARYNGEAL [place] AND ED /2021 Comment: [place]ep[place] d GeneXpert (618) IS [facility] FLU/RSV CORONAVIRU Ordering Pro vider: SAHARA CEVALLOS S RNA Report Released Date/Time: Nov 28, 2021 09:05 AM PANEL(CE [PRESENCE] Reporting L ab: [facility] PHEID) IN [address] [facility] [address] RESPIRATOR Performing L ab: [facility] Y SPECIMEN ONE [facility] [address] BY JAYLAN WITH PROBE DETECTION COVID-19 INFLUENZA Not 11/30 Specimen Type : NASOPHARYNGEAL [place] VIRUS A Detected /2021 Comment: Cep[place] GeneXpert (618) IS [facility] FLU/RSV RNA Ordering Provid er: SAHARA CEVALLOS [PRESENCE] Report Relea sed Date/Time: Nov 28, 2021 09:05 AM PANEL(CE IN UPPER Reporting Lab : [facility] PHEID) RESPIRATOR ONE [facility] [address] Y SPECIMEN Performing L ab: [facility] BY JAYLAN ONE [facility] [address] [facility] [address] WITH PROBE DETECTION COVID-19 INFLUENZA Not 11/30 Specimen Type : NASOPHARYNGEAL [place] AND VIRUS B Detected /2021 Comment: [place] GeneXpert (618) IS [facility] FLU/RSV RNA Ordering Provid er: SAHARA CEVALLOS [PRESENCE] Report Relea sed Date/Time: Nov 28, 2021 09:05 AM PANEL(CE IN UPPER Reporting Lab : [facility] PHEID) RESPIRATOR ONE [facility] [address] Y SPECIMEN Performing L ab: [facility] BY JAYLAN ONE [facility] [address] [facility] [address] WITH PROBE DETECTION COVID-19 RESPIRATOR Not 03/04 Specimen Typ e: NASOPHARYNGEAL [place] AND Y Detected /2021 Comment: [place] GeneXpert (618) IS [facility] FLU/RSV SYNCYTIAL Ordering Prov ider: SAHARA CEVALLOS VIRUS RNA Report Releas ed Date/Time: Nov 28, 2021 09:05 AM PANEL(CE [PRESENCE] Reporting L ab: [facility] PHEID) IN UPPER [address] [facility] [address] RESPIRATOR Performing L ab: [facility] Y SPECIMEN [address] [facility] [address] BY JAYLAN WITH PROBE DETECTION HEMOGLOB HEMOGLOBIN 10.2 4.0 - 6.0 10/11 H Specimen T ype: BLOOD [place] IN A1C A1C/HEMOGL /2021 No comment en tered. IS [facility] OBIN.TOTAL Ordering Pro vider: LONA PALACIO IN BLOOD Report Release d Date/Time: Jun 14, 2021 10:16 AM Reporting Lab: [facility] [address] [facility] [address] Performing Lab: [facility] [address] [facility] [address] MICROALB CREATININE 19.5 58.0 - 06/14 L Specimen Typ e: URINE [place] UMIN/CRE [MASS/VOLU 161.0 No comment e ntered. IS [facility] ATININE ME] IN Ordering Provid er: LONA PALACIO URINE Report Released Date/Time: Jun 14, 2021 10:15 AM URINE Reporting Lab: [facility] [address] [facility] [address] Performing Lab: [facility] [address] [facility] [address] MICROALB MICROALBUM 324.6 <29.9 - 06/14 H Specimen Typ e: URINE [place] UMIN/CRE IN/CREATIN 29.9 No comment e ntered. IS [facility] ATININE INE [MASS Ordering Prov ider: LONA PALACIO RATIO RATIO] IN Report Releas ed Date/Time: Jun 14, 2021 10:15 AM URINE URINE Reporting Lab: [facility] [address] [facility] [address] Performing Lab: [facility] [address] [facility] [address] MICROALB MICROALBUM 63.3 <29.9 - 06/14 H Specimen Typ e: URINE [place] UMIN/CRE IN . No comment ente red. IS [facility] ATININE [MASS/VOLU Ordering Pro vider: LONA PALACIO RATIO ME] IN Report Released Date/Time: Jun 14, 2021 10:15 AM URINE URINE Reporting Lab: [facility] [place] [address] Performing Lab: [facility] [address] [facility] [address] C-PEPTID C PEPTIDE 2.40 0.80 - 06/14 Specimen Type : SERUM [place] E [MASS/VOLU 3.85 /2020 Comment: Alba t Performed by [facility], [facility], [address] [place] [address] Jf Crum M.D., Ph.D., Director of Laboratories , [facility] [id number] IS [facility] ME] IN Ordering Provid er: LONA PALACIO SERUM OR Report Release d Date/Time: Jun 14, 2021 10:15 AM PLASMA Reporting Lab: [facility] [address] [facility] [address] Performing Lab: [address] HEMOGLOB HEMOGLOBIN 10.2 4.0 - 6.0 06/14 H Specimen T ype: BLOOD [place] IN A1C A1C/HEMOGL No comment en tered. IS [facility] OBIN.TOTAL Ordering Pro vider: LONA PALACIO IN BLOOD Report Release d Date/Time: Jun 14, 2021 10:15 AM Reporting Lab: [facility] [place] [address] Performing Lab: [facility] [place] [address] LIPID CHOLESTERO 127 <199 - 199 06/14 Specimen T ype: PLASMA [place] PANEL,NO L /2020 No comment ente red. IS [facility] N-FASTIN [MASS/VOLU Ordering Pr ovider: LONA PALACIO G ME] IN Report Released Date/Time: Jun 14, 2021 10:15 AM SERUM OR Reporting Lab: [place] [facility] PLAS[facility] [place] [address] Performing Lab: [facility] [address] [facility] [address] LIPID CHOLESTERO 28 40 06/14 L Specimen Type : PLASMA [place] PANEL,NO L IN HDL /2020 No comment ent ered. IS [facility] N-FASTIN [MASS/VOLU Ordering Pr ovider: LONA PALACIO] IN Report Released Date/Time: Jun 14, 2021 10:15 AM SERUM OR Reporting Lab: [facility] PLASMA [address] [facility] [address] Performing Lab: [facility] [address] [facility] [address] LIPID CHOLESTERO 65 <99 - 99 06/14 Specimen Typ e: PLASMA [place] PANEL,NO L IN LDL /2020 No comment ent ered. IS [facility] N-FASTIN [MASS/VOLU Ordering Pr ovider: LONA PALACIO] IN Report Released Date/Time: Jun 14, 2021 10:15 AM SERUM OR Reporting Lab: [facility] PLASMA BY [address] [facility] [address] CALCULATIO Performing L ab: [facility] N [address] [facility] [address] LIPID CHOLESTERO 34 <29 - 29 06/14 H Specimen Typ e: PLASMA [place] PANEL,NO L IN VLDL /2020 No comment en tered. IS [facility] N-FASTIN [MASS/VOLU Ordering Pr ovider: LONA PALACIO] IN Report Released Date/Time: Jun 14, 2021 10:15 AM SERUM OR Reporting Lab: [facility] PLASMA BY [address] [facility] [address] CALCULATIO Performing L ab: [facility] N [address] [facility] [address] LIPID CHOLESTERO 99 <129 - 129 06/14 Specimen T ype: PLASMA [place] PANEL,NO L NON HDL /2020 No comment en tered. IS [facility] N-FASTIN [MASS/VOLU Ordering Pr ovider: LONA PALACIO] IN Report Released Date/Time: Jun 14, 2021 10:15 AM SERUM OR Reporting Lab: [facility] PLASMA [address] [facility] [address] Performing Lab: [facility] [place] [address] LIPID TRIGLYCERI 172 <149 - 149 06/14 H Specimen T ype: PLASMA [place] PANEL,NO DE /2020 No comment ente red. IS [facility] N-FASTIN [MASS/VOLU Ordering Pr ovider: LONA PALACIO G ME] IN Report Released Date/Time: Jun 14, 2021 10:15 AM SERUM OR Reporting Lab: [facility] PLASMA [place] [address] Performing Lab: [facility] [address] [facility] [address] TSH THYROTROPI 3.83 0.35 - 06/14 Specimen Type : PLASMA [place] W/REFLEX N 4.94 /2020 No comment ente red. IS [facility] TO FREE [UNITS/VOL Ordering Pro vider: LONA PALACIO T4 UME] IN Report Released Date/Time: Jun 14, 2021 10:15 AM SERUM OR Reporting Lab: [facility] PLASMA [address] [facility] [address] Performing Lab: [facility] [address] [facility] [address] GLUCOSE GLUCOSE 292 74 - 100 06/14 H Specimen Type: PLASMA [place] [MASS/VOLU /2020 No comment en tered. IS [facility] ME] IN Ordering Provid er: LONA PALACIO SERUM OR Report Release d Date/Time: Jun 14, 2021 04:36 PM PLASMA Reporting Lab: [facility] [address] [facility] [address] Performing Lab: [facility] [place] [address] CREATINI CREATININE 1.6 0.7 - 1.2 01/16 H Specimen T ype: PLASMA [place] NE(INCLU [MASS/VOLU /2020 No comment e ntered. IS [facility] [place] ME] IN Ordering Provid er: MITCHELL-EDITAANDXIOMY EGFR) SERUM OR Report Release d Date/Time: Jan 16, 2021 10:53 AM PLASMA Reporting Lab: [facility] [address] [facility] [address] Performing Lab: [facility] [address] [facility] [address] CREATINI GLOMERULA 42 60 04/20 L Specimen Typ e: PLASMA [place] NE(INCLU R /2020 No comment ente red. IS [facility] [place] FILTRATION Ordering Pro vider: VICKI KILLIAN EGFR) RATE/1.73 Report Releas ed Date/Time: Jan 16, 2021 10:53 AM SQ Reporting Lab: [facility] [place] [address] [facility] [address] D [VOLUME Performing La b: [facility] RATE/AREA] [address] [facility] [address] IN SERUM, PLASMA OR BLOOD BY CREATININE -BASED FORMULA (CKD-EPI) HEMOGLOB HEMOGLOBIN 8.3 4.0 - 6.0 01/16 H Specimen T ype: BLOOD [place] IN A1C A1C/HEM /2020 No comment en tered. IS [facility] OBIN.TOTAL Ordering Pro vider: VICKI KILLIAN IN BLOOD Report Release d Date/Time: Jan 16, 2021 10:53 AM Reporting Lab: [facility] [address] [facility] [address] Performing Lab: [facility] [address] [facility] [address] Vital Signs Combined list of inpatient and outpatient Vital Signs from Department of Defense and Veterans Affairs, ranging from 12 months to all on record, depending upon the facility. Vital Sign Value Date Comments Source SYSTOLIC BLOOD PRESSURE 142 12/21/2021 10:36:23 [facility] DIASTOLIC BLOOD PRESSURE 69 12/21/2021 10:36:23 [facility] TEMPERATURE 97.7 12/21/2021 10:36:23 [facility] PULSE 52 12/21/2021 10:36:23 [place] [facility] SYSTOLIC BLOOD PRESSURE 137 10/11/2021 09:26:36 [facility] DIASTOLIC BLOOD PRESSURE 71 10/11/2021 09:26:36 [facility] PULSE OXIMETRY 97% 10/11/2021 09:26:36 [place] [facility] WEIGHT 214 10/11/2021 09:26:36 [place] [facility] BMI 27kg/m2 10/11/2021 09:26:36 [place] [facility] PAIN 0 10/11/2021 09:26:36 [place] [facility] TEMPERATURE 98.8 10/11/2021 09:26:36 [place] [facility] PULSE 55 10/11/2021 09:26:36 [place] [facility] RESPIRATION 16 10/11/2021 09:26:36 [place] [facility] WEIGHT 222.2 07/03/2021 11:00:00 [place] [facility] BMI 28kg/m2 07/03/2021 11:00:00 [place] [facility] SYSTOLIC BLOOD PRESSURE 130 06/14/2021 09:37:22 [place] [facility] DIASTOLIC BLOOD PRESSURE 69 06/14/2021 09:37:22 [facility] PULSE OXIMETRY 95% 06/14/2021 09:37:22 [place] [...] For Provider Date Date Visit HC PRO 13797-1.61 Diagnos STEPHEN- 11/22 [place] PHONE CALL [phone] is: JAJA KOHLER [place] [facility] 21-30 MIN ICD-10- [facility] CM E11.8 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< br/>wit h Provide r Comment s: Type 2 diabete s mellitu s (SCT [id number] 6) Outpatient [id number] 11/27 [place] Encounter [id number] [facility] Outpatient [id number] LUCIANTY[place]ALE 11/28 [place] Encounter [id number] N W [facility] HC PRO 34623-2.61 Diagnos MITCHELL- 11/30 [place] PHONE CALL [phone] is: EDITA, [facility] 21-30 MIN ICD-10- [facility] CM E11.8 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< br/>wit h Provide r Comment s: Type 2 diabete s mellitu s (SCT [id number]) Outpatient 92269-9.61 03/11 [place] Encounter [id number] /2020 [facility] Outpatient 89360-5.61 03/16 [place] Encounter [id number] /2020 [facility] HC PRO 07449-8.61 Diagnos MITCHELL- 12/15 [place] PHONE CALL [id number] is: EDITA, [facility] 21-30 MIN ICD-10- [facility] HCS CM E11.8 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< br/>wit h Provide r Comment s: Type 2 diabete s mellitu s (SCT [id number] 6) Outpatient 38172-5.61 03/30 [place] Encounter [id number] /2020 [facility] Outpatient 38851-3.61 03/31 [place] Encounter [id number] /2020 [facility] [place] [address]-2.61 Diagnos Fidencio ARANDA 12/28 [place] PHARM ADDL [id number] is: HALEY D [facility] 15 MIN ICD-10- HCS CM E11.8 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< br/>wit h Provide r Comment s: Type 2 diabete s mellitu s (SCT [id number] 6) CONT GLUC 28479-4.61 Diagnos MITCHELL- 01/16 [place] MNTR [id number] is: [facility]A, [facility] PHYS/QHP ICD-10- [facility] EQP CM E11.8 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< br/>wit h Provide r Comment s: Type 2 diabete s mellitu s (SCT [id number] 6) HEARING 27117-4.61 Diagnos Juana LYNNE 01/29 [place] AID EXAM [id number] is: JANINA LANG [facility] BOTH EARS ICD-10- HCS CM H90.3 Sensori neural hearing loss, bilater al
with Provide r Comment s: Sensori neural hearing loss, bilater al OFFICE O/P 97292-4.61 Diagnos JOSE D DAVILA 02/01 [place] EST HI [id number] is: SEY R /2020 [facility] 40-54 MIN ICD-10- HCS CM E11.8 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< br/>wit h Provide r Comment s: Type 2 diabete s mellitu s (SCT [id number] 6) Outpatient 64022-9 05/ [place] Encounter [id number] /2021 [facility] HC PRO 07351-7 Diagnos MITCHELL- 02/22 [place] PHONE CALL [id number] is: EDITA,MIKAELA [facility] 21-30 MIN ICD-10- [facility] HCS CM E11.8 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< br/>wit h Provide r Comment s: Type 2 diabete s mellitu s (SCT [id number] 6) Outpatient 85307-2 06/01 [place] Encounter [id number] [facility] OFFICE O/P Diagnos JOSE D DAVILA 03/01 [place] EST HI [id number] is: Y R [facility] 40-54 MIN ICD-10- HCS CM E11.8 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< br/>wit h Provide r Comment s: Type 2 diabete s mellitu s (SCT [id number] 6) Outpatient 79769-2.61 06/04 [place] Encounter [id number] /2021 [facility] Outpatient 48578-7. 06/10 [place] En[place] [id number] /2021 [facility] Outpatient 41395-1.61 06/14 [place] En[place] [id number] [facility] Outpatient 93209-4.61 06/17 [place] Encounter [id number] [facility] Outpatient 44749-503/19 [place] Encounter [id number] /2020 [facility] OFFICE O/P Diagnos CONOR EPSTEIN 03/21 [place] EST MOD [id number] is: N W [facility] 30-39 MIN ICD-10- HCS CM I50.9 Heart failure , unspeci fied
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< br/>wit h Provide r Comment s: Type 2 diabete s mellitu s (SCT [id number] 6) HC PRO Diagnos MITCHELL- 04/18 [place] PHONE CALL [id number] is: EDITA,MIKAELA [facility] 21-30 MIN ICD-10- [facility] HCS CM E11.8 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< br/>wit h Provide r Comment s: Type 2 diabete s mellitu s (SCT [id number] 6) Outpatient 95785-604/19 [place] En[place] [id number] [facility] Outpatient 96062-204/19 [place] Encounter [id number] /2021 [facility] SELF-MGMT 64618-2.61 Diagnos SAHARA,LATANYA 05/14 [place] EDUC & [id number] is: AEL F [facility] TRAIN 1 PT ICD-10- HCS CM H90.3 Sensori neural hearing loss, bilater al
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 IMMUNIZATI 72846-761 Diagnos DAVID TO 07/03 [place] ON ADMIN [id number] is: RLY K [facility] ICD-10- HCS CM Z23 Encount er for immuniz ation<b r/>with Provide r Comment s: Encount er for Immuniz ation (ICD-10 -CM Z23.) Outpatient 63930-4.61 10/ [place] Encounter [id number] [facility] Out[facility] 83852-0.61 07/17 [place] Encounter [id number] /2021 [facility] [place] [place] [address]-6.61 Diagnos BALDO, 07/17 [place] DIG [id number] is: LEONOR K /2020 [facility] ASSMT&MGMT ICD-10- HCS 5-10 CM E11.8 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< br/>wit h Provide r Comment s: Type 2 diabete s mellitu s (SCT [id number] 6) Outpatient 02974-1.61 07/19 [place] Encounter [id number] [facility] MED 79594-9.61 Diagnos JIM TOBE 08/14 [place] NUTRITION [id number] is: RLY K /2020 [facility] INDIV ICD-10- HCS SUBSEQ CM 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<b r/>with Provide r Comment s: 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 ORAL 37867-7.61 Diagnos EGGEBRAATE 08/31 [place] HYGIENE [id number] is: NCLAIRE T /2020 [facility] INSTRUCTIO ICD-10- [facility] N CM K02.52 Dental caries on pit and fissure surfc penetra t into dentin< br/>wit h Provide r Comment s: Dental caries on pit and fissure surface penetra ting into dentin Outpatient 20535-3.61 09/07 [place] Encounter [id number] [facility] Outpatient 97745-3.61 10/10 [place] Encounter [id number] [facility] OFFICE O/P 41522-1.61 Diagnos LAMAR PALACIO 10/11 [place] EST MOD [id number] is: ILANA D /2021 [facility] 30-39 MIN ICD-10- HCS CM 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< br/>wit h Provide r Comment s: Type 2 Diabete s Mellitu s with Hypergl ycemia Outpatient 72950-3.61 10/19 [place] Encounter [id number] [facility] HC PRO 30690-2.61 Diagnos OMBERG,RUDDY 10/24 [place] PHONE CALL [id number] is: I M /2021 [facility] 21-30 MIN ICD-10- HCS CM E11.8 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< br/>wit h Provide r Comment s: Type 2 diabete s mellitu s (SCT [id number] 6) Outpatient 40419-1.61 11/09 [place] Encounter [id number] /2021 [facility] Outpatient 96468-3.61 11/12 [place] En[place] [id number] /2021 [facility] HC PRO 42085-8.61 Diagnos [facility],RUDDY 11/21 [place] PHONE CALL [id number] is: I M [facility] 5-10 MIN ICD-10- HCS CM E11.8 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 is: I M /2021 [facility] 11-20 MIN ICD-10- HCS CM E11.8 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
w ith Provide r Comment s: Fractur ed dental restora tive materia l with loss of materia l Outpatient 35308-5.61 12/27 [place] Encounter [id number] /2021 [facility] Outpatient 91307-8.65 12/28 ST. Encounter [id number] /2021 [facility] Outpatient 29995-0.61 12/31 [place] Encounter [id number] /2021 [facility] Outpatient 06145-6.65 12/31 ST. Encounter [id number] /2021 [facility] Outpatient 74164-9.61 12/31 [place] Encounter [id number] /2021 [facility] Outpatient 09170-1.61 WILDER [place]ORENCE 12/31 [place] Encounter [id number] THAN C /2021 [facility] Outpatient 27889-2.61 Diagnos Fidencio HENDERSON 12/31 [place] Encounter [id number] is: MAKENNA J /2021 [facility] ICD-10- HCS CM M62.81 Muscle weaknes s (genera lized)< br/>wit h Provide r Comment s: Muscle Weaknes s (Genera lized) Outpatient 42963-6.61 01/01 [place] Encounter [id number] /2021 [facility] Outpatient 78658-5.61 01/02 [place] En[place] [id number] /2021 [facility] Outpatient 37395-4.61 Diagnos Fidencio HENDERSON 01/03 [place] Encounter [id number] is: MAKENNA J /2021 [facility] ICD-10- HCS CM M62.81 Muscle weaknes s (genera lized)< br/>wit h Provide r Comment s: Muscle Weaknes s (Genera lized) CASE 50510-3.61 Diagnos GISELA REBOLLAR 01/04 [place] MANAGEMENT [id number] is: EE J /2021 [facility] ICD-10- HCS CM E11.8 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
with Provide r Comment s: Dysphag ia, unspeci fied Outpatient 74171-461 Diagnos Fidencio HENDERSON 01/25 [place] Encounter [id number] is: MAKENNA J /2021 [facility] ICD-10- HCS CM M62.81 Muscle weaknes s (genera lized)< br/>wit h Provide r Comment s: Muscle Weaknes s (Genera lized) Outpatient 60654-9.61 01/30 [place] Encounter [id number] [facility] Outpatient 18175-4.61 02/04 [place] Encounter [id number] /2021 [facility] REM 86170-361 Diagnos GERMAN,SA 02/05 [place] INTERROG [id number] is: NDRA L /2021 [facility] DEV EVAL ICD-10- HCS SCRMS CM I63.9 Cerebra l infarct ion, unspeci fied
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 ([facility] [id number] ) Outpatient 13950-7.61 02/06 [place] Encounter [id number] /2021 [facility] Outpatient 30923-2.61 02/07 [place] Encounter [id number] /2021 [facility] Outpatient 15437-4.61 02/12 [place] Encounter [id number] /2021 [facility] Outpatient 34355-9.61 02/18 [place] Encounter [id number] /2021 [facility] Outpatient 18189-0.61 02/19 [place] Encounter [id number] /2021 [facility] Outpatient 67366-6 Diagnos FAPORTER,E 02/19 [place] Encounter [id number] is: MAKENNA J /2021 [facility] ICD-10- HCS CM M62.81 Muscle weaknes s (genera lized)< br/>wit h Provide r Comment s: Muscle Weaknes s (Genera lized) Outpatient 61765-2.61 02/21 [place] Encounter [id number] /2021 [facility] Outpatient 21715-9.61 02/28 [place] Encounter [id number] /2021 [facility] Outpatient 75112-2.61 02/28 [place] Encounter [id number] /2021 [facility] REM 95106-6.61 Diagnos FASHINGBAU 03/01 [place] INTERROG [id number] is: ANISA HANSON /2021 [facility] DEV EVAL ICD-10- T HCS SCRMS CM I63.9 Cerebra l infarct ion, unspeci fied
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
w ith Provide r Comment s: Weaknes s Outpatient 76288-5.61 06/ [place] Encounter [id number] /2021 [facility] Outpatient 16871-0.61 03/25 [place] En[place] [id number] /2021 [facility] Outpatient 62369-7.61 03/26 [place] Encounter [id number] /2021 [facility] Outpatient 31055-3.61 07 [place] Encounter [id number] /2021 [facility] Outpatient 47897-1.61 04/15 [place] Encounter [id number] /2021 [facility] Outpatient 83150-8.61 Diagnos SANTIAGO,E 04/19 [place] Encounter [id number] is: MAKENNA J /2021 [facility] [place] ICD-10- HCS CM M62.81 Muscle weaknes s (genera lized)< br/>wit h Provide r Comment s: Muscle Weaknes s (Genera lized) REM 71520-4.61 Diagnos ZHOU,L 04/23 [place] INTERROG [id number] is: NAOMI /2021 [facility] DEV EVAL ICD-10- HCS SCRMS CM I63.9 Cerebra l infarct ion, unspeci fied
with Provide r Comment s: Cerebra l infarct ion Outpatient 69303-5.61 04/23 [place] Encounter [id number] /2021 [facility] REM 50637-0.61 Diagnos FASHINGBAU 04/29 [place] INTERROG [id number] is: YENIFER HANSONARE /2021 [facility] DEV EVAL ICD-10- T HCS SCRCT CM Z95.818 Presenc e of other cardiac implant s and grafts< br/>wit h Provide r Comment s: Presenc e of other cardiac implant s and grafts WHEELCHAIR 59420-1.61 Diagnos SHUN THURSTON 05/06 [place] MNGMENT [id number] is: D R [facility] TRAINING ICD-10- HCS CM R53.1 Weaknes s
w ith Provide r Comment s: Weaknes s CASE 12192-5.61 Diagnos GISELA REBOLLAR 05/15 [place] MA[place] [id number] is: EE J [facility] [place] ICD-10- HCS CM Z71.89 Other specifi ed summer camp counselor ing<br/ >with Provide r Comment s: Other specifi ed [place] ing Social History Combined list of available smoking, tobacco, and other social history from [facility] facilities. Social History Type Response Date Comment Source Tobacco smoking status VA-TOBACCO FORMER USER 06/13/2020 [facility] History of tobacco use OR-TOBACCO QUIT 15 YRS 06/13/2020 [facility] History of tobacco use VA-TOBACCO QUIT 15 YRS 05/20/2019 [facility] History of tobacco use VA-TOBACCO FORMER USER 07/30/2018 [facility] History of tobacco use FORMER TOBACCO USER 7Y 08/25/2017 [facility] History of tobacco use FORMER TOBACCO USER 7Y 11/08/2016 [facility] History of tobacco use FORMER TOBACCO USER 7Y 11/29/2015 [facility] History of tobacco use FORMER TOBACCO USER 7Y 02/23/2015 [facility] History of tobacco use FORMER TOBACCO USER 7Y 01/27/2014 [facility] History of tobacco use FORMER TOBACCO USER 7Y 03/17/2007 [facility] Advance Directives List of completed, amended, or rescinded Advance Directives on record at Department of Veterans Affairs facilities. An actual copy of the Directive is not included. Date Advance Directive Provider Source 03/17/2007 ADVANCE DIRECTIVE ALBERTO RODRIGUEZ [facility]
--- OUTSIDE RECORDS SUMMARY | 2022-05-28 07:33 | XMS_ITS | Clinical Summary ---
:1945 Author Organization [employer] Address [address] [address] Phone Care Team Providers Name Role Phone [...] Brother Depression Brother Cardiovascular Disease Father of [place] Depression Father Hypertension Mother Asthma Sister Asthma [...] Phone Address Typ e / Group Dates [facility] [id number] 2020-Pre [phone] ATTN Medicar e MEDICARE sent [phone] ??CLAIMS Replacement PLANS [address] [place] [address] [facility] [id number] 2021-Pre [phone] [facility] C[facility] sent [phone] [facility] [address] [place] [address] Jonnathan Costa Other Self 1945 [phone] [id number] (Home) [place] [address] Advance Directives For more information, please contact: [phone] Latest Code Status on File Code Status Date Activated Date Inactivated Comments Full Code 12/24/2021 2:27 AM 12/24/2021 10:02 PM Full Code 02/25/2021 7:21 PM 02/26/2021 7:54 PM
--- OUTSIDE RECORDS SUMMARY | 2022-05-28 07:33 | XMS_ITS | Encounter Summary ---
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
--- OUTSIDE RECORDS SUMMARY | 2022-05-28 07:34 | XMS_ITS | Encounter Summary ---
:1945 Author Organization [employer] Address [address] [address] Phone Care Team Providers Name Role Phone [...]
--- OUTSIDE RECORDS SUMMARY | 2022-05-28 07:34 | XMS_ITS | Encounter Summary ---
:1945 Author Organization [employer] Address [address] [address] Phone Care Team Providers Name Role Phone [...]
--- OUTSIDE RECORDS SUMMARY | 2022-05-28 07:34 | XMS_ITS | Encounter Summary ---
:1945 Author Organization [employer] [facility] Address [address] [address] Phone Care Team Providers Name Role Phone Unavailable Primary Care Provider Unavailable Reason for Visit Reason Comments Cerebral Vascular Accident Auth/Cert Specialty Diagnoses / Procedures Referred By Contact Refer red To Contact Diagnoses TIA (transient ischemic attack) Elevated troponin Transient ischemic attack [address] Medical [address] [place] [address] [place] [address] Referral ID Status Reason Start Date Expiration Date Visits Requ ested Visits Authorized [id number] 1 1 Encounter Details Date Type Department Care Team Description [facility]/23[facility] [address] [place] [address] [place], [place] [id number] TIA (transient ischemic attack) (Primary Dx); 12/24/2021 [facility] Holly Owen MD [address] [place] [address] [phone] Elevated troponin; [address] [place] [address] Malachi Alves, LOG SCALER, SAP BI ARCHITECT [address] [place] [address] [phone] 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 Recommend level tested at [place] ?? Elevated troponin level -??0.377-->0.362-->0.310-->0.283 no chest [...] a stress test as outpatient with his nut sorter at [facility]. Plan of care reviewed with Dr. Natasha [...] heart failure with preserved ejection fraction (HFpEF) ([facility]) no increased dyspnea or edema. Appears to be euvolemic. ??Troponin elevated as above. -??Continue usual medications of ASA, Lipitor, Plavix, losartan, metoprolol and torsemide. ?Type 2 diabetes mellitus with hyperglycemia, with long-term current use of insulin ([facility]) - checks his glucose levels 4-5 times per day and has insulin SS and basal. Recently started Ozempic ( questioning the of thuseis medication with hx of pancreatitis) - and on SGLT2 A1C 9.6% (12/24/2021) Fasting glucose 184 Pre-meal glucose 283 -will continue on [employer] medications and follow-up with PCP ?Essential hypertension -??continue losartan and metoprolol. ??No prn medications unless BP >??180/100 for permissive HTN. ?Stage 3b chronic kidney disease (HCC) - creatine on presentation 1.58. appears to be at his baseline. ??Follow with diuretic use. ?? Diagnostic Studies: Labs: See labs in [facility] from 12/23/2021 - 12/24/2021 Microbiology: Covid, negative Imaging/cardiac graphics: Ct head, CT angio head/neck, MRI, ECHO Procedures this admission: none Consult/s: IP CONSULT TO [facility] TELE-STROKE IP CONSULT HF INPATIENT CASE MANAGEMENT BRD IP CONSULT TO [facility] TELE-STROKE IP CONSULT TO TIP CEMENTER IP CONSULT TO CARDIOLOGY, see notes for full details of consult Discharge Instructions: Follow up appointment with Primary Care Physician: No primary care provider on file. within 3 work days. [facility]s [facility] [place] and has appointment scheduled for December 27. [...] with patient and family. Malachi Alves CNP [facility] Medicine Service Please CC/route this note in EPIC to No primary care provider on file. documented in this encounter Discharge Instructions InstructionsMoMalachi bliss APRN, CNP - 12/24/2021 9:57 AM CDT Neurology is recommending a 30 day Holter monitor that will be mailed to you Follow-up with you primary care provider as scheduled on December 27 at the [facility] Follow-up with neurology within one month Follow-up [...] Code Departure Means Destination Home and/or Self Nursing Home documented in this encounter Progress Notes Yesenia [...] Franco PharmD - 12/24/2021 3:59 PM CDT [employer] Medication History obtained by: Estelle Franco PharmD Home medication list updated using: [employer] med list, patient, spouse (Azra- [phone]), Outpatient Pharmacy ([facility]) Faxed Medication List and Care Everywhere (Organization: [facility]) Spoke with the patient? Yes Name of [...] Washington MD - 12/24/2021 3:46 PM CDT [facility] TELE[facility] NEUROVASCULAR SUMMARY Beth Duran 1945 Date of service 12/24/2021 The type of service provided: Telehealth visit conducted via interactive videoconference. The time the service began and the time the service ended: [id number]. A description of the provider???s basis for determining that telemedicine is an appropriate and effective means for delivering service to the recipient: Defined by policy and procedure documents. The mode of transmission of the telemedicine service: Interactive videoconference. The location of the originating and the distant sites: Originating Site (Patient Location): [facility] Distant Site (Provider Site): [place], [place]. This is a 76 year old male who was admitted to [facility] for ischemic strokes in multiple [...] on monitor. NEUROLOGICAL: NIHSS 0. Admission modified Dimmit Scale: 1 Discharge modified Tracy Scale: 1 [...] with neurology as outpatient. Luiz Washington MD [facility] Telestroke Counseling/Coordination of care 20 minutes [...] heart failure with preserved ejection fraction (HFpEF) ([facility]) Procedures/Diagnostics Affecting Therapy: Hx of [...] Function/Coordination: Dominant Hand: Right Bilateral coordination and distributed generation project manager strength is Within function limits. Activities of [...] and plan of care discussed with nursing, comp field case manager/party planner and PT. Frequency of Occupational Therapy Recommended: Evaluation Only Planned interventions may consist of any combination of the following: ?? ADL retraining Duration of Services: Acute care Occupational Therapy will continue until patient has met prior level of function, safety/independence, or is discharged from the facility. OT Total Treatment Time: 20min Evaluation Low - Complexity (88114) Tammy Lorenz MA, OTR/L WinYu mcfarlane PT [...] heart failure with preserved ejection fraction (HFpEF) ([facility]) Procedures/Diagnostics Affecting Therapy: Barriers to [...] discussed with nursing, physician/advanced practice provider andcase explosive ordnance disposal manager/party planner. Frequency of Physical Therapy Recommended: [...] 20 minutes ?? Evaluation Low - Complexity (16535) Yu Pike PT Philly Crain MA, CCC/LATHE MACHINE OPERATOR - 12/24/2021 9:24 AM CDT LATHE MACHINE OPERATOR COURTESY NOTE Orders received for LATHE MACHINE OPERATOR to eval and treat per stroke [...] baseline with no deficits. Philly Crain MA, CCC/LATHE MACHINE OPERATOR documented in this encounter H&P Notes [...] heart failure with preserved ejection fraction (HFpEF) ([facility]) 12/24/2021 ??? Acute on chronic heart failure with preserved ejection fraction (HFpEF) ([facility]) 02/25/2021 ??? Stage 3b chronic kidney disease ([facility]) 02/25/2021 ??? Moderate asthma with acute exacerbation 02/25/2021 ??? Acute respiratory failure with hypoxia ([facility]) 02/25/2021 ??? Essential hypertension 02/25/2021 ??? Insulin dependent type 2 diabetes mellitus ([facility]) 02/25/2021 ??? Diabetic neuropathy ([facility]) 02/25/2021 ??? Type 2 diabetes mellitus with hyperglycemia, with long-term current use of insulin ([facility]) 02/25/2021 HPI: This 76 yo male with a PMH significant for CKD-3b, asthma, HFpEF, hyperlipidemia, HTN, hypothyroidism and DM-2 on insulin with prior episodes of TIA-like symptoms presented to the ER via EMS afterhe experienced about 30 minutes of visual field deficit and right arm and leg weakness the evening [employer]. He had been feeling fine throughout the [...] Depression Father ??? Cardiovascular Disease Father of [place] ??? Asthma Sister ??? Asthma Brother ??? Depression Brother ??? Asthma Son He indicated that his mother is . He indicated that his father is . He indicated that his sister is alive. He indicated that his brother is alive. He indicated that his son is alive. Social History Social History Narrative , lives with his in their own home in [place]. They have 2 biological daughters, an adopted daughter and an adopted son and 9 grandchildren. 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 They have a [place] home near [place]. 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 Review of Systems Constitutional: Positive for fatigue. Negative for activity change, appetite change, chills and fever. Afton more tired than usual the day of [...] IP CONSULT TO CARDIOLOGY Cardiology Consultation Site: [facility] Chief Complaint: Chief Complaint Patient presents with [...] terms of CHF. He does have a nut sorter at [facility] in [place], [place]. Patient resides in [place], [place], has alake home here in [facility]. Past Medical History: Past Medical History: [...] Depression Father ??? Cardiovascular Disease Father of [place] ??? Asthma Sister ??? Asthma Brother ??? [...] real-time polymerase chain reaction (PCR) on the [employer] GeneXpert System. Results should be used in [...] for this test can be found at: https://www.fda.gov/medical-devices/rxwmijvmt-tbmitsufno-qkzjnkl-devices/emergen fh-snu-vxtnfbgppegqtz TROPONIN I Result Value Ref Range Troponin [...] repeat testing for the diagnosis of diabetes. [employer] 2018 ?? LIPID PANEL Result [...] a stress test as outpatient with his nut sorter at [facility]. Plan of care reviewed with Dr. Natasha [...] 9:41 AM CDTAssociated Order(s): IP CONSULT TO TIP CEMENTER Discharge Planning Assessment Beth Duran is a [...] none noted Psychosocial needs Support System: family Moto Mix Operator/Pilot Plant Operator/Stave And Bolt Equalizer: none noted Health Care Agent/Guardian/POA/Conservator: pt is [...] pt said he is service connected Insurance: [facility] Medicare and pt said he has VA coverage Financial Concerns: none noted Readmission/LACE Score Current LACE score: 6 Readmission within 30 days? no Any known issues related to readmission? no Discharge Disposition Plan Patient/family preference for discharge: home when able Community Resource brochure given: offered and declined Community Autism Tutor referral offered if appropriate: n/a How patient [...] benefit with Medicare Written Information Provided: ?? [facility] Your Outpatient Observation Stay handout (Y/N) yes ?? Self-Administered Drug handout (Y/N) yes - (required with Medicare and Medicare Replacement Cost plans) The patient and/or access services representative were provided the opportunity to ask questions, which were addressed. *The pt was informed to call Medicare directly for additional questions, or call the business officeif they receive a bill and continue to have questions. Maria E Laguna MD - 12/24/2021 12:38 AM CDTAssociated Order(s): IP CONSULT TO [facility] TELE-STROKE [facility] TELESTROKE CODE CONSULTATION: TODAY'S DATE: 12/24/2021 PATIENT NAME: Beth Duran DATE OF : 1945 History of Present Illness: This is a 76 year old male who I am asked to see via telestroke in the ER at [facility] in [place] at the request of Filemon Conrad MD;Devon* [...] Depression Father ??? Cardiovascular Disease Father of [place] ??? Asthma Sister ??? Asthma Brother ??? [...] resolved Maria E Laguna MD [facility] Telestroke/Teleurology Service As the provider for this [...] as well. - Originating site (patient location): [facility] ED - Distant site (telehealth provider location): [employer] Telestroke/Teleneurology Service Provider's residence - Video start [...] from the original note were not included. [facility] Emergency Physician Note Date: 12/24/21 Patient Name: [...] the ground. He was then watching the [employer] women's basketball tournament when he noticed that [...] Sensation to light touch intact throughout. Normal rmerfp-ie-mrad testing bilaterally. Psych: Appropriate mood and affect [...] Normal sinus rhythm, first-degree AV block with [place] interval 226 ms, PVCs present in a [...] with mepilex. Small abrasion to left clavicle. MANZANITA. Will go home with when medically able. [...] Troponin I 0.283 (H) 0.000 - 12/24/2021 [facility] 0.028 3:00 PM CDT [facility] ng/mL LABORATORY Specimen Anatomical Collection Method / Collection Time Recei pee Time (Source) Location / Volume Laterality Blood BLOOD SPECIMEN / Venipuncture / 12/24/2021 2:35 2021 2:37 Unknown Unknown PM CDT PM CDT Narrative [facility] LABORATOR Y - 12/24/2021 3:00 PM CDT Because no pediatric reference range alhaji a is published, the adult reference range will be utilized as this represents 99% of healthy adults. Malachi Alves LOG SCALER, SAP BI ARCHITECT EC CHEMISTRY ORDERABLES Performing Organization Address City/State/ZIP Code Phon e Number [facility] [address] [address] LABORATORY MR BRAIN WO CONTRAST (12/24/2021 [...] Gage MD 12/24/2021 2:15 PM Malachi Alves LOG SCALER, SAP BI ARCHITECT EC MRI ORDERABLES (ABNORMAL) GLUCOSE, METER (12/24/2021 11:11 AM CDT) P athologist Signature Glucose Meter 283 (H) 70 - 99 12/24/[address] mg/dL 11:17 AM CDT [facility] POINT OF CARE Specimen Anatomical Collection Method Collection Time Receive d Time (Source) Location / / Volume Laterality Blood BLOOD SPECIMEN / 12/24/2021 11:11 022 Unknown AM CDT 11:17 AM CDT Malachi Alves LOG SCALER, SAP BI ARCHITECT EC CHEMISTRY ORDERABLES Performing Organization Address City/State/ZIP Code Phon e Number [facility] [address] [address] POINT OF CARE ECHO ADULT COMPLETE W CONTRAST (12/24/2021 11:05 AM CDT) [facility] gist Method Time Signature RESULT [facility] XC ELERA [address] [address] ? Transthoracic Echocardiogram Report Name: BETH DURAN Aissatou ? Study Date: 12/24 ? Performing Location: READLYN : 1945 ? Gender: Male Height: 72 [...] (indexed): 25.0 ? Interpreting Physician: ? Location: [place] Inpatient Specimen (Source) Anatomical Location Collection Method / Collectio n Time Received Time / Laterality Volume 12/24/2021 Holly wOen MD CV ECHO PROCEDURES Performing Organization Address City/[facility]/ZIP Code Phon e Number XCELERA (ABNORMAL) TROPONIN I (12/24/2021 8:07 AM CDT) athologist Signature Troponin I 0.310 (H) 0.000 - 12/24/2021 [facility] 0.028 8:37 AM T [facility] ng/mL LABORATORY Specimen Anatomical Collection Method / Collection Time Recei pee Time (Source) Location / Volume Laterality Blood BLOOD SPECIMEN / Venipuncture / 12/24/2021 8:07 2021 8:11 Unknown Unknown AM CDT AM CDT Narrative [facility] LABORATOR Y - 12/24/2021 8:37 AM CDT Because no pediatric reference range alhaji a is published, the adult reference range will be utilized as this represents 99% of healthy adults. Holly Owen MD EC CHEMISTRY ORDERABLES Performing Organization Address City/State/ZIP Code Phon e Number [facility] [address] [address] LABORATORY (ABNORMAL) GLUCOSE, METER (12/24/2021 6:32 AM CDT) P athologist Signature Glucose Meter 184 (H) 70 - 99 12/24/2021 ST. mg/dL 6:38 AM CDT [facility] POINT OF CARE Specimen Anatomical Collection Method Collection Time Receive d Time (Source) Location / / Volume Laterality Blood BLOOD SPECIMEN / 12/24/2021 6:32 AM 12/24 6:38 Unknown CDT AM CDT Holly Owen MD EC CHEMISTRY ORDERABLES Performing Organization Address City/State/ZIP Code Phon e Number [facility] [address] [place] [address] POINT OF CARE (ABNORMAL) LIPID PANEL (12/24/2021 6:12 AM CDT) [facility] gist Method Time Signature Cholesterol 125 114 - 200 12/24/2021 ST. mg/dL 6:49 AM CDT [facility] LABORATORY HDL Cholesterol 28 (L) 40 - 60 12/24/2021 ST. mg/dL 6:49 AM CDT [facility] LABORATORY Triglycerides 156 10 - 200 12/24/2021 ST. mg/dL 6:49 AM CDT [facility] LABORATORY LDL Cholesterol, 66 mg/dL 12/24/2021 ST. Calculated 6:49 AM CDT [facility] LABORATORY Specimen Anatomical Collection Method / Collection Time Recei pee Time (Source) Location / Volume Laterality Blood BLOOD SPECIMEN / Venipuncture / 12/24/2021 6:12 2021 6:31 Unknown Unknown AM CDT AM CDT Narrative [facility] LABORATOR Y - 12/24/2021 6:49 [...] EC CHEMISTRY ORDERABLES ABN Performing Organization Address City/[facility] Phon e Number [facility] [address] [place] [address] 401 LABORATORY (ABNORMAL) HEMOGLOBIN A1C (12/24/2021 6:12 AM CDT) Analysis Performed At Patho logist Time Signature Hemoglobin A1c 9.6 (H) 4.0 - 5.6 12/24/2021 ST. % 7:29 AM T [facility] LABORATORY Estimated 229 mg/dL 12/24/2021 [facility] Average Glucose 7:29 AM [facility] LABORATORY Specimen Anatomical Collection Method / Collection Time Recei pee Time (Source) Location / Volume Laterality Blood BLOOD SPECIMEN / Venipuncture / 12/24/2021 6:12 2021 6:31 Unknown Unknown AM CDT AM CDT Narrative [facility] LABORATOR Y - 12/24/2021 7:29 AM CDT HGA1C Reference Ranges ??>= 6.5 ?? Diabetes* ??5.7-6.4 ??Impaired glucose tolerance ?? <5.7 ?Normal *In the absence of unequivocal hyperglyc emia, results should be confirmed by repeat testing for the diagnosis of diabetes. [employer] 2018 ?? Holly Owen MD EC CHEMISTRY ORDERABLES ABN Performing Organization Address City/[facility] Phon e Number [facility] [address] [place] [address] LABORATORY (ABNORMAL) TROPONIN I (12/24/2021 6:12 AM CDT) P athologist Signature Troponin I 0.362 (H) 0.000 - 12/24/2021 [facility] 0.028 6:54 AM CDT [facility]ENTER ng/mL LABORATORY Specimen Anatomical Collection Method / Collection Time Recei pee Time (Source) Location / Volume Laterality Blood BLOOD SPECIMEN / Venipuncture / 12/24/2021 6:12 2021 6:31 Unknown Unknown AM CDT AM CDT Narrative [facility] LABORATOR Y - 12/24/2021 6:54 AM CDT Because no pediatric reference range alhaji a is published, the adult reference range will be utilized as this represents 99% of healthy adults. Holly Owen MD EC CHEMISTRY ORDERABLES Performing Organization Address City/State/ZIP Code Phon e Number [facility] [address] [place] [address] LABORATORY RAPID SARS-COV-2 RNA (COVID-19), MOLECULAR DETECTION (12/24/2021 12:27 AM CDT) [facility] Method Time Signature SARS-CoV-2 Negative Negative/Not 12/24/2021 [facility] RNA Detected 1:13 AM CDT [facility] (COVID-19) [facility] LABORATORY Comment: SARS-CoV-2 (COVID-19) target nu [...] AM CDT 12:31 AM CDT Unknown Narrative [facility] LABORATOR Y - 12/24/2021 1:13 AM CDT Test detects target RNA by real-time polymerase chain reaction (PCR) on the [employer] GeneXpert System. Results should be used in [...] for this test can be found at: https://www.fda.gov/medical-devices/xhmfydlck-rrzdzruwgc-mraioht-devices/emergen wc-oqt-wjqcyvdtogbnbp Filemon Conrad MD EC MICROBIOLOGY - GENERAL OR DERABLES Performing Organization Address City/[facility]/ZIP Code Phon e Number [place] [address] LABORATORY EKG 12-LEAD (12/24/2021 12:06 AM CDT) athologist Signature Ventricular Rate 66 BPM MUSE Atrial Rate 66 BPM MUSE P-R Interval 226 ms MUSE QRS Duration 108 ms MUSE QT 470 ms MUSE QTc 492 ms MUSE P [place] 83 degrees MUSE R [place] -52 degrees MUSE T [place] 45 degrees MUSE Specimen (Source) Anatomical Collection [...] MD IP ECG ORDERABLES Performing Organization Address City/[facility]/ZIP Code Phon e Number MUSE MAGNESIUM (12/23/2021 11:52 PM CDT) athologist Signature Magnesium 2.0 1.8 - 2.7 12/24/2021 [facility] mg/dL 12:52 AM CDT [facility] LABORATORY Specimen Anatomical Collection Method / Collection Time Recei pee Time (Source) Location / Volume Laterality Blood BLOOD SPECIMEN / Venipuncture / 12/23/2021 11:52 12/23 Unknown Unknown PM CDT 11:57 PM CDT Filemon Conrad MD EC CHEMISTRY ORDERABLES Performing Organization Address [facility] Phon e Number [facility] [address] [place] [address] LABORATORY APTT (12/23/2021 11:52 PM CDT) P athologist Signature APTT 27 23 - 35 sec 12/24/2021 [facility] 12:10 AM T [facility] LABORATORY Specimen Anatomical Collection Method / Collection Time Recei pee Time (Source) Location / Volume Laterality Blood BLOOD SPECIMEN / Venipuncture / 12/23/2021 11:52 12/23 Unknown Unknown PM CDT 11:57 PM CDT Filemon Conrad MD EC HEMATOLOGY ORDERABLES Performing Organization Address City/[facility] Phon e Number [facility] [address] [address] LABORATORY PROTIME (12/23/2021 11:52 PM CDT) P athologist Signature INR 1.0 0.9 - 1.1 12/24/2021 [facility] 12:09 AM T [facility] LABORATORY Protime 13.4 12.0 - 14.2 12/24/2021 [facility] sec 12:09 AM T [facility] LABORATORY Specimen Anatomical Collection Method / Collection Time Recei pee Time (Source) Location / Volume Laterality Blood BLOOD SPECIMEN / Venipuncture / 12/23/2021 11:52 12/23 Unknown Unknown PM CDT 11:57 PM CDT Narrative [facility] LABORATOR Y - 12/24/2021 12:09 AM CDT Suggested therapeutic INR ranges for oral anticoagulant therapy: Category ? INR Value Prophylaxis ?2.0-3.0 Treat Thrombosis or Embolism ? 2.0-3 .0 Prosthetic Heart Valve ? 2. 5-3.5 Filemon Conrad MD EC HEMATOLOGY ORDERABLES Performing Organization Address [facility]/ZIP [facility] Phon e Number [facility] [address] [address] LABORATORY BLOOD BANK DRAW & HOLD (12/23/2021 11:52 PM CDT) P athologist Signature BB DRAW ONLY COMM 12/24/2021 ST. 12:16 AM T [facility] BLOOD BANK Comment: A specimen has [...] EC BLOOD BANK ORDERABLES Performing Organization Address [facility]/ZIP Code Phon e Number [facility] [address] [address] BLOOD BANK (ABNORMAL) HEMOGRAM/DIFFERENTIAL (12/23/2021 11:52 PM CDT) [facility] g[facility] Method Time Signature WBC 9.1 3.2 - 12/24/2021 ST. 11.0 12:00 AM [facility] 10*9/L [facility] LABORATORY RBC 4.37 4.14 - 12/24/2021 ST. 5.76 12:00 AM [facility] 10*12/L [facility] LABORATORY HGB 12.8 (L) 12.9 - 12/24/2021 ST. 16.9 g/dL 12:00 AM [facility] LABORATORY HCT 37.5 (L) 38.4 - 12/24/2021 ST. 49.7 % 12:00 AM [facility] LABORATORY MCV 85.8 81.4 - 12/24/2021 ST. 99.0 fL 12:00 AM [facility] LABORATORY MCH 29.3 26.7 - 12/24/2021 ST. 33.1 pg 12:00 AM [facility] LABORATORY MCHC 34.1 31.6 - 12/24/2021 ST. 35.5 g/dL 12:00 AM [facility] RDW 13.1 11.3 - 12/24/2021 ST. 14.6 % 12:00 AM [facility] PLT 201 130 - 375 12/24/2021 ST. 10*9/L 12:00 AM [facility] Neutrophils % 68.6 % 12/24/2021 ST. 12:00 AM [facility] Lymphocytes % 15.4 % 12/24/2021 ST. 12:00 AM [facility] Monocytes % 7.8 % 12/24/2021 ST. 12:00 AM [facility] Eosinophils % 6.5 % 12/24/2021 ST. 12:00 AM [facility] Basophils % 1.1 % 12/24/2021 ST. 12:00 AM [facility] Immature 0.6 % 12/24/2021 ST. Granulocytes % 12:00 AM [facility] Neutrophils 6.2 1.5 - 7.6 12/24/2021 ST. Absolute 10*9/L 12:00 AM [facility] Lymphocytes 1.4 0.8 - 3.3 12/24/2021 ST. Absolute 10*9/L 12:00 AM [facility] Monocytes 0.7 0.2 - 0.9 12/24/2021 ST. Absolute 10*9/L 12:00 AM [facility] Eosinophils 0.6 (H) 0.0 - 0.4 12/24/2021 ST. Absolute 10*9/L 12:00 AM [facility] Basophils 0.1 0.0 - 0.1 12/24/2021 ST. Absolute 10*9/L 12:00 AM [facility] Immature 0.05 0.00 - 12/24/2021 ST. Granulocytes 0.06 12:00 AM [facility] Absolute 10*9/L [facility] Specimen Anatomical Collection Method / Collection Time Recei pee Time (Source) Location / Volume Laterality Blood BLOOD SPECIMEN / Venipuncture / 12/23/2021 11:52 12/23 Unknown Unknown PM CDT 11:57 PM CDT Filemon Conrad MD EC HEMATOLOGY ORDERABLES Performing Organization Address [facility] Phon e Number [facility] [address] [address] LABORATORY (ABNORMAL) TROPONIN I (12/23/2021 11:52 PM CDT) P athologist Signature Troponin I 0.377 (H) 0.000 - 12/24/2021 [facility] 0.028 12:22 AM CDT [facility] ng/mL LABORATORY Specimen Anatomical Collection Method / Collection Time Recei pee Time (Source) Location / Volume Laterality Blood BLOOD SPECIMEN / Venipuncture / 12/23/2021 11:52 12/23 Unknown Unknown PM CDT 11:57 PM CDT Narrative [facility] LABORATOR Y - 12/24/2021 12:22 AM CDT Because no pediatric reference range alhaji a is published, the adult reference range will be utilized as this represents 99% of healthy adults. Filemon Conrad MD EC CHEMISTRY ORDERABLES Performing Organization Address [facility] Phon e Number [facility] [address] [address] LABORATORY (ABNORMAL) BASIC METABOLIC PANEL (12/23/2021 11:52 PM CDT) Patholo gist Method Time Signature Sodium 139 134 - 143 12/24/2021 ST. mEq/L 12:17 AM T [facility] Potassium 4.2 3.4 - 5.1 12/24/2021 ST. mEq/L 12:17 AM T [facility] Chloride 105 99 - 110 12/24/2021 ST. mEq/L 12:17 AM T [facility] Carbon Dioxide 20 19 - 29 12/24/2021 ST. mEq/L 12:17 AM T [facility] Anion Gap 14.0 3.0 - 15.0 12/24/2021 ST. mEq/L 12:17 AM [facility] Blood Urea 36 (H) 5 - 24 12/24/2021 ST. Nitrogen mg/dL 12:17 AM [facility] Creatinine 1.58 (H) 0.70 - 12/24/2021 ST. 1.20 mg/dL 12:17 AM [facility] Glomerular 43 (L) >60 12/24/2021 [facility]. Filtration Rate mL/min/1.7 12:17 AM [facility] 3 m*2 [facility] Comment: Complications of CKD and risk o f cardiovascular disease increase when GFR is below 60ml.min/1.73m2. A persistently re duced GFR is a specific indication of Chronic Kidney Disease. The eGFR calculation has not been validated in patients >70yrs. Calcium 9.3 8.4 - 10.5 mg/dL 12/24/2021 12:17 AM CDT [facility] Glucose 113 (H) 70 - 99 mg/dL 12/24/2021 12:17 AM CDT [facility] Specimen Anatomical Collection Method / Collection Time Recei pee Time (Source) Location / Volume Laterality Blood BLOOD SPECIMEN / Venipuncture / 12/23/2021 11:52 12/23 Unknown Unknown PM CDT 11:57 PM CDT Narrative [facility] LABORATOR Y - 12/24/2021 12:17 [...] Organization Address City/State/ZIP Code Phon e Number [address] ANGIO HEAD [...] BOOKER 12/24/2021 8:37 AM Electronically Signed: Dhiraj Ospian MD 12/24/2021 4:19 PM Procedure Note Dhiraj [...] iohexol (Omnipaque) 350 MG/ML 80 mL (COMPLETED) 4816 (Given - Provider: Octavio Glover, RT(R)) 80 [...] TO CARDIOLOGY 1 12/24/2021 IP CONSULT TO TIP CEMENTER 1 12/24/2021 IP CONSULT TO SASKIA TELE-STROKE 1 12/23/2021 documented in this encounter
--- OUTSIDE RECORDS SUMMARY | 2022-05-28 07:34 | XMS_ITS | Encounter Summary ---
:1945 Author Organization [employer] Address [address] [address] Phone Care Team Providers Name Role Phone Unavailable Primary Care Provider Unavailable Reason for Visit Reason Comments Fall Head Laceration Encounter Details Date Type Department Care Team Description 03/09/2019 Emergency [facility], Rusty Nguyen MD Closed head injury, initial encounter (P rimary Dx); Center Emergency [address] Facial laceration, initial encounter; Department [facility] Abrasion of right knee, initial encounte r; [address] [place] [address] [place] [address] Chest wall contusion, right, initial enc ount [place] [address] [phone] Social History Tobacco Use Types Packs/Day Years [...] sent through Care Everywhere. Chest Wall Contusion ([place])Head Injury (Adult) ([place])Laceration, Face: Stitches or Tape ([place])Laceration, Extremity: Skin Glue ([place])documented in this encounter Medications at Time of [...] Bryan RN at 03/09/2019 7:27 PM pancrelipase, [id number], ([id number]) [id number] UNIT Capsule Delayed Release Particles Take 1 [...] Disposition: ED Disposition ED Disposition Comment Discharge [facility] thanks you for allowing us to assist you with your healthcare needs. This document contains patient education materials and information regarding your injury/illness. *If you need copies of your x-rays for a f ollow up appointment please call [phone] to arrange for order picker. If you had an IV in place [...]
--- OUTSIDE RECORDS SUMMARY | 2022-05-28 07:34 | XMS_ITS | Encounter Summary ---
:1945 Author Organization [email or web address] Address [address] [address] Phone Care Team Providers Name Role Phone Unavailable Primary Care Provider Unavailable Reason for Visit Reason Comments Fall Encounter Details Date Type Department Care Team Description 03/09/2019 Office Visit [facility]Josiah Khan cause of URGENT CARE MD [place] morbidity or mortality [address] (Primary Dx) [place] [address] [place] [phone] Social History Tobacco Use Types Packs/Day [...] on a blood thinner. Per Dr Gentile flex o writer operator advised patient to present to the ER. Patient was given gauze and cleaned up by flex o writer operator before leaving urgent care. documented in this encounter Plan of Treatment Not on filedocumented as of this encounter Visit Diagnoses Diagnosis Unknown cause of morbidity or mortality - Primary Other unknown and unspecified cause of m orbidity or mortality documented in this encounter
--- OUTSIDE RECORDS SUMMARY | 2022-05-28 07:34 | XMS_ITS | Encounter Summary ---
:1945 Author Organization [employer] Address [address] [address] Phone Care Team Providers Name Role Phone Unavailable Primary Care Provider Unavailable Reason for Visit Reason Comments Difficulty Breathing Auth/Cert Specialty Diagnoses / Procedures Referred By Contact Refer red To Contact Diagnoses Acute left-sided CHF (congestive heart failure) (HCC) [facility] [address] [place] [address] [place] [address] Referral ID Status Reason Start Date Expiration Date Visits Requ ested Visits Authorized [id number] 1 1 Encounter Details Date Type Department Care Team Description 02/25/2021 - Hospital Encounter [facility], Gavino Cee MD [address] [place] [address] [phone] Acute on chronic congestive heart failur e, unspecified heart failure type (HCC) (Primary Dx); 02/26/2021 Center Jill Gupta MD [address] [place] [address] [id number] Moderate persistent asthma with acute ex acerbation [address] [place] [address] [id number] Social History Tobacco Use Types Packs/Day Years [...] Date: 02/26/2021 Patient will be discharged from [facility] to Home. Discharge Diagnoses: # Acute on chronic HFpEF; EF 50% echo 11/17/20 ([place]). # Moderate asthma with acute exacerbation. # Acute hypoxic respiratory failure. Medical history: Hypothyroidism 02/23/2021 Atherosclerotic Heart Disease [place] Coronary [...] follow w his Primary Care Provider and paper feeder at [place]. Discharge Procedure Orders Diet/NPO Status Order Specific [...] with chronic HFpEF; EF 50% echo 11/17/20 ([place]), asthma, HTN, insulin-dependent type 2 diabetes. Was [...] make it to his appointment with his paper feeder at [place] tomorrow. Home oxygen test shows oxygen saturation of 90% on room air but with activity saturation dropped to 87%. Patient will need 2 L of oxygen with activity. DME for home oxygen done. Admitting diagnoses: # Acute on chronic HFpEF; EF 50% echo 11/17/20 ([place]). # Moderate asthma with acute exacerbation. # [...] occasional unintended word substitution. Jill Baugh MD [facility] Internal Medicine/Hospitalist CC: No primary care [...] your medicine. Do not use any medicines, uqdf-gzk-jshrahx drugs, vitamins, herbs, or food supplements without [...] smoke. Smoking cessation support is available at [employer] (1-859-051-BPAP(9976) or [employer]). Jonnathan Costa does not smoke. We are concerned about your emotional health after discharge. If you are feeling alone, sad, or hopeless, a 24 hour suicide crisis and referral hotline is available at [employer] [employer] (4326) or toll-free at Heart Failure:Weigh your self [...] Care Everywhere. Heart Failure, Discharge Instructions for (Latvian)documented in this encounter Medications at Time of [...] Code Departure Means Destination Home and/or Self Residential documented in this encounter [employer] Catalina [...] list of DME suppliers; they have chosen [employer] for their home oxygen needs. Marko Batista [...] with spouse in a home in [facility], it is multiple levels, seemingly has to [...] Function/Coordination: Dominant Hand: Right Bilateral coordination and element winding machine tender strength is Within function limits. 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 NA Precautions: ?? Full code ?? Oxygen: 2 LPM with activity ?? DM II ?? Falls: Bed/chair alarm SUBJECTIVE Pt agrees to PT wili but plans to leave today at 1400 as needs to be at [facility] tomorrow for a follow up appointment - see chart for further information. RT states he needs 2L oxygen with standing tasks/activities , 5 children, lives in [facility]. States he has a SEC but does not use it and does not agree to use of walker as determined to gain the strength to walk without a device. 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 He attributes loss of balance when walking with OT and RT due to his shoes vs decreased balance status. States he has never fallen due to loss of balance deficits. Chief Complaints: SOB; Weakness; h/o falls; weight gain 75-year-old man with chronic HFpEF; EF 50% echo 11/17/20 ([place]), asthma, HTN, insulin-dependent type 2 diabetes. Presents [...] Situation/Social History: Pt lives with spouse in [place], [place] in a Multilevel home with no [...] seen 1:1 by PT for Evaluation from [id number] with session ended due to nursing staff [...] shoulder width apart; able to make turns, bead picker object off floor/reach above shoulder without loss [...] will not need to be seen by [facility] IP PT team as being discharge today. [...] Time: 15' ?? Evaluation Low - Complexity ([id number]) Harman Coles, PT Priyanka Yanes RN - 02/25/2021 8:10 PM CDT Jonnathan Costa admitted to Tele unit from emergency department. Transported via wheelchair with O2 escorted by electrical instrumentation technician. Notification of admission: not applicable. Handoff received from ALISSA Zhu RN. Belongings verified: Yes See belongings flowsheet. Priyanka Yanes RN documented in this encounter H&P Notes Jill Baugh MD - 02/25/2021 5:59 PM CDT 02/25/2021 HOSPITALIST ADMISSION NOTE Jill Baugh MD [facility] Patient Name: Jonnathan Costa Date: 1945 Location/Room #: Admission Date: 02/25/2021 Date of service: 02/25/2021 Provider: Jill Baugh MD, Internal Medicine/Hospitalist CC: Progressive shortness of breath with weight gain. HPI: 75-year-old man with chronic HFpEF; EF 50% echo 11/17/20 ([place]), asthma, HTN, insulin-dependent type 2 diabetes. Presents [...] salt. Was recently seen by his cardiology VESSEL SLAG WORKER in [place] on 02/22/21 who made some changes to his medications as follows >> amiodarone discontinued because of hypothyroidism (TSH of 10.3 on 01/11/21), hydralazine and nitrates discontinued, losartan started, torsemide dose was increased from daily to twice daily, metoprolol dose was increased to 50 mg daily. Echo 11/17/20 ([place]): Final Impressions - Mild-moderately enlarged left ventricular [...] on chronic HFpEF; EF 50% echo 11/17/20 ([place]). # Possible acute asthma exacerbation. # Acute [...] Medical problems Hypothyroidism 02/23/2021 Atherosclerotic Heart Disease [place] Coronary [...] 08/28/[address] Prasanna Bernal at the [facility].?? COLONOSCOPY 08/10/2013 ?? Repeat in 5 years [...] children. Accompanied by and daughter. Lives in [facility]. Quitsmoking about 40 years ago. Rarely [...] occasional unintended word substitution. Jill Baugh MD [facility] Internal Medicine/Hospitalist documented in this encounter Consult Antonella De La Torre PharmD - 02/25/2021 6:43 PM CDT KILN PULLER Medication History obtained by: Antonella Randhawa, Pharm.D Home medication list updated using: spouse and Care Everywhere (Organization: [facility]) Spoke with the patient? No, Azra [...] All meds added new to EH list; paper feeder removed imdur 60mg daily, hydralazine 25mg every [...] about a month. He follow-up with his paper feeder on . Multiple adjustments were made to [...] 02/26/[address] mg/dL 12:06 PM CDT [facility] POINT OF CARE Specimen Anatomical Collection Method Collection Time Receive d Time (Source) Location / / Volume Laterality Blood BLOOD SPECIMEN / 02/26/2021 12:00 021 Unknown PM CDT 12:06 PM CDT Jill Baugh MD EC CHEMISTRY ORDERABLES Performing Organization Address City/[facility] Phon e Number [facility] [address] [address] POINT OF CARE (ABNORMAL) GLUCOSE, METER (02/26/2021 7:31 AM CDT) athologist Signature Glucose Meter 246 (H) 70 - 99 02/26/[address] mg/dL 7:37 AM T [facility] POINT OF CARE Specimen Anatomical Collection Method Collection Time Receive d Time (Source) Location / / Volume Laterality Blood BLOOD SPECIMEN / 02/26/2021 7:31 AM 02/26 7:37 Unknown CDT AM CDT Jill Baugh MD EC CHEMISTRY ORDERABLES Performing Organization Address [facility] Phon e Number [facility] [address] [address] POINT OF CARE (ABNORMAL) HEMOGRAM (02/26/2021 5:56 AM CDT) athologist Signature WBC 4.9 3.2 - 11.0 02/26/2021 [facility] 10*9/L 6:33 AM T [facility] RBC 3.39 (L) 4.14 - 5.76 02/26/2021 [facility] 10*12/L 6:33 AM [facility] HGB 10.3 (L) 12.9 - 16.9 02/26/2021 [facility] g/dL 6:33 AM [facility] HCT 31.2 (L) 38.4 - 49.7 02/26/2021 [facility] % 6:33 AM [facility] MCV 92.0 81.4 - 99.0 02/26/2021 [facility] fL 6:33 AM [facility] MCH 30.4 26.7 - 33.1 02/26/2021 [facility] pg 6:33 AM [facility] MCHC 33.0 31.6 - 35.5 02/26/2021 [facility] g/dL 6:33 AM [facility] RDW 13.1 11.3 - 14.6 02/26/2021 [facility] % 6:33 AM [facility] PLT 179 130 - 375 02/26/2021 [facility] 10*9/L 6:33 AM [facility] Specimen Anatomical Collection Method / Collection Time Recei pee Time (Source) Location / Volume Laterality Blood BLOOD SPECIMEN / Venipuncture / 02/26/2021 5:56 2020 6:27 Unknown Unknown AM CDT AM CDT Jill Baugh MD EC HEMATOLOGY ORDERABLES Performing Organization Address City/State/ZIP Code Phon e Number [place] [address] LABORATORY (ABNORMAL) BASIC METABOLIC PANEL (02/26/2021 5:56 AM CDT) [facility] Method Time Signature Sodium 139 134 - 143 02/26/2021 ST. mEq/L 6:56 AM [facility] Potassium 4.4 3.4 - 5.1 02/26/2021 ST. mEq/L 6:56 AM [facility] Chloride 108 99 - 110 02/26/2021 ST. mEq/L 6:56 AM [facility] Carbon Dioxide 21 19 - 29 02/26/2021 ST. mEq/L 6:56 AM [facility] Anion Gap 10.0 3.0 - 15.0 02/26/2021 ST. mEq/L 6:56 AM [facility] Blood Urea 32 (H) 5 - 24 02/26/2021 ST. Nitrogen mg/dL 6:56 AM [facility] Creatinine 1.62 (H) 0.70 - 02/26/2021 ST. 1.20 mg/dL 6:56 AM [facility] Glomerular 42 (L) >60 02/26/2021 [facility]. Filtration Rate mL/min/1.7 6:56 AM [facility] 3 m*2 [facility] Comment: Complications of CKD and risk o f cardiovascular disease increase when GFR is below 60ml.min/1.73m2. A persistently re duced GFR is a specific indication of Chronic Kidney Disease. The eGFR calculation has not been validated in patients >70yrs. Calcium 8.5 8.4 - 10.5 mg/dL 02/26/2021 6:56 AM T [facility] Glucose 238 (H) 70 - 99 mg/dL 02/26/2021 6:56 AM T [facility] Specimen Anatomical Collection Method / Collection Time Recei pee Time (Source) Location / Volume Laterality Blood BLOOD SPECIMEN / Venipuncture / 02/26/2021 5:56 2020 6:27 Unknown Unknown AM CDT AM CDT Narrative [facility] LABORATOR Y - 02/26/2021 6:56 AM [...] Organization Address City/State/ZIP Code Phon e Number [facility] [address] [place] [address] 401 LABORATORY EKG 12-LEAD (02/25/2021 11:08 PM CDT) P athologist Signature Ventricular Rate 62 BPM MUSE Atrial Rate 62 BPM MUSE P-R Interval 232 ms MUSE QRS Duration 98 ms MUSE QT 480 ms MUSE QTc 487 ms MUSE P [place] 18 degrees MUSE R [place] -41 degrees MUSE T [place] -39 degrees MUSE Specimen (Source) Anatomical Collection [...] MD IP ECG ORDERABLES Performing Organization Address City/[facility]/ZIP Code Phon e Number MUSE (ABNORMAL) GLUCOSE, METER (02/25/2021 9:15 PM CDT) athologist Signature Glucose Meter 276 (H) 70 - 99 02/25/[address] mg/dL 9:21 PM CDT [facility] POINT OF CARE Specimen Anatomical Collection Method Collection Time Receive d Time (Source) Location / / Volume Laterality Blood BLOOD SPECIMEN / 02/25/2021 9:15 PM 02/25 9:21 Unknown CDT PM CDT Jill Baugh MD EC CHEMISTRY ORDERABLES Performing Organization Address City/[facility] Phon e Number [facility] [address] [place] [address] POINT OF CARE STAT SARS-COV-2 RNA (COVID-19) (02/25/2021 6:31 PM CDT) [facility] gist Method Time Signature SARS-CoV-2 Negative Negative/Not 02/25/2021 ST. RNA Detected 7:15 PM CDT [facility] Comment: SARS-CoV-2 (COVID-19) target nu [...] / PM CDT PM CDT Unknown Narrative [facility] LABOR[facility] Y - 02/25/2021 7:15 PM CDT Test detects target RNA by real-time polymerase chain reaction (PCR) on the [employer] GeneXpert System. Results should be used in [...] for this test can be found at: https://www.fda.gov/medical-devices/hvjebatve-uqjbaxraqp-cuxlckr-devices/emergen ol-caw-uslccpdhvensht Johnson Rubio MD EC MICROBIOLOGY - GENERAL OR DERABLES Performing Organization Address City/State/ZIP Code Phon e Number [place] [phone] [place] [address] LABORATORY XR CHEST 2 VIEWS (02/25/2021 5:15 [...] CDT) athologist Signature Procalcitonin 0.04 <0.50 02/25/2021 [facility] ng/mL 7:27 PM CDT [facility] Specimen Anatomical Collection Method / Collection Time Recei pee Time (Source) Location / Volume Laterality Blood BLOOD SPECIMEN / Venipuncture / 02/25/2021 4:55 2020 4:59 Unknown Unknown PM CDT PM CDT Narrative [facility] LABOR[facility] Y - 02/25/2021 7:27 PM [...] Organization Address City/State/ZIP Code Phon e Number [facility] [address] [place] [address] LABORATORY MAGNESIUM (02/25/2021 4:55 PM CDT) P athologist Signature Magnesium 2.0 1.8 - 2.7 02/25/2021 [facility] mg/dL 6:20 PM [facility] CENTER LABORATORY Specimen Anatomical Collection Method / Collection Time Recei pee Time (Source) Location / Volume Laterality Blood BLOOD SPECIMEN / Venipuncture / 02/25/2021 4:55 2020 4:59 Unknown Unknown PM CDT PM CDT Jill Baugh MD EC CHEMISTRY ORDERABLES Performing Organization Address City/[facility] Code Phon e Number [facility] [address] [place] [address] LABORATORY (ABNORMAL) BASIC METABOLIC PANEL (02/25/2021 4:55 PM CDT) Patholo gist Method Time Signature Sodium 138 134 - 143 02/25/2021 ST. mEq/L 5:17 PM [facility] Potassium 4.8 3.4 - 5.1 02/25/2021 ST. mEq/L 5:17 PM [facility] Chloride 106 99 - 110 02/25/2021 ST. mEq/L 5:17 PM [facility] Carbon Dioxide 22 19 - 29 02/25/2021 ST. mEq/L 5:17 PM [facility] Anion Gap 10.0 3.0 - 15.0 02/25/2021 ST. mEq/L 5:17 PM [facility] Blood Urea 30 (H) 5 - 24 02/25/2021 ST. Nitrogen mg/dL 5:17 PM [facility] Creatinine 1.62 (H) 0.70 - 02/25/2021 ST. 1.20 mg/dL 5:17 PM [facility] Glomerular 42 (L) >60 02/25/2021 ST. Filtration Rate mL/min/1.7 5:17 PM [facility] 3 m*2 [facility] Comment: Complications of CKD and risk o f cardiovascular disease increase when GFR is below 60ml.min/1.73m2. A persistently re duced GFR is a specific indication of Chronic Kidney Disease. The eGFR calculation has not been validated in patients >70yrs. Calcium 9.0 8.4 - 10.5 mg/dL 02/25/2021 5:17 PM CDT [facility] Glucose 357 (H) 70 - 99 mg/dL 02/25/2021 5:17 PM CDT [facility] Specimen Anatomical Collection Method / Collection Time Recei pee Time (Source) Location / Volume Laterality Blood BLOOD SPECIMEN / Venipuncture / 02/25/2021 4:55 2020 4:59 Unknown Unknown PM CDT PM CDT Narrative [facility] Y - 02/25/2021 5:17 PM [...] Organization Address City/State/ZIP Code Phon e Number [address] [address] LABORATORY TROPONIN I (02/25/2021 4:55 PM CDT) P athologist Signature Troponin I 0.028 0.000 - 02/25/2021 [facility] 0.028 ng/mL 5:24 PM CDT [facility] Specimen Anatomical Collection Method / Collection Time Recei pee Time (Source) Location / Volume Laterality Blood BLOOD SPECIMEN / Venipuncture / 02/25/2021 4:55 2020 4:59 Unknown Unknown PM CDT PM CDT Narrative [facility] Y - 02/25/2021 5:24 PM CDT Because no pediatric reference range alhaji a is published, the adult reference range will be utilized as this represents 99% of healthy adults. Johnson Rubio MD EC CHEMISTRY ORDERABLES Performing Organization Address [facility] Phon e Number [facility] [address] [address] LABORATORY (ABNORMAL) BNP (02/25/2021 4:55 PM CDT) [facility] Method Time Signature B-Type 1,113 (H) <=100 02/25/2021 ST. Natriuretic pg/mL 5:24 PM CDT [facility] Peptide (BNP) [facility] Specimen Anatomical Collection Method / Collection Time Recei pee Time (Source) Location / Volume Laterality Blood BLOOD SPECIMEN / Venipuncture / 02/25/2021 4:55 2020 4:59 Unknown Unknown PM CDT PM CDT Narrative [facility] LAB[facility] Y - 02/25/2021 5:24 PM CDT CAUTION: BNP results will be elevated in patients on nesiritide (Natrecor). Please wait five half-lives (2 hrs) after infus ion of nesiritide before drawing a BNP level. Johnson Rubio MD EC CHEMISTRY ORDERABLES ABN Performing Organization Address [facility] Phon e Number [facility] [address] [address] LABORATORY (ABNORMAL) HEMOGRAM/DIFFERENTIAL (02/25/2021 4:55 PM CDT) [facility] Method Time Signature WBC 8.3 3.2 - 02/25/2021 ST. 11.0 5:02 PM CDT [facility] 10*9/L [facility] RBC 3.75 (L) 4.14 - 02/25/2021 ST. 5.76 5:02 PM CDT [facility] 10*12/L [facility] HGB 11.5 (L) 12.9 - 02/25/2021 ST. 16.9 g/dL 5:02 PM T [facility] HCT 35.2 (L) 38.4 - 02/25/2021 ST. 49.7 % 5:02 PM T [facility]OR[facility] MCV 93.9 81.4 - 02/25/2021 ST. 99.0 fL 5:02 PM [facility] MCH 30.7 26.7 - 02/25/2021 ST. 33.1 pg 5:02 PM [facility] MCHC 32.7 31.6 - 02/25/2021 ST. 35.5 g/dL 5:02 PM [facility] RDW 13.5 11.3 - 02/25/2021 ST. 14.6 % 5:02 PM [facility] PLT 171 130 - 375 02/25/2021 ST. 10*9/L 5:02 PM [facility] Neutrophils % 83.0 % 02/25/2021 ST. 5:02 PM [facility] Lymphocytes % 6.6 % 02/25/2021 ST. 5:02 PM [facility] Monocytes % 6.3 % 02/25/2021 ST. 5:02 PM [facility] Eosinophils % 2.9 % 02/25/2021 ST. 5:02 PM [facility] Basophils % 0.7 % 02/25/2021 ST. 5:02 PM [facility] Immature 0.5 % 02/25/2021 ST. Granulocytes % 5:02 PM [facility] Neutrophils 6.9 1.5 - 7.6 02/25/2021 ST. Absolute 10*9/L 5:02 PM [facility] Lymphocytes 0.6 (L) 0.8 - 3.3 02/25/2021 ST. Absolute 10*9/L 5:02 PM [facility] Monocytes 0.5 0.2 - 0.9 02/25/2021 ST[facility] 10*9/L 5:02 PM [facility] Eosinophils 0.2 0.0 - 0.4 02/25/2021 ST. Absolute 10*9/L 5:02 PM [facility] Basophils 0.1 0.0 - 0.1 02/25/2021 ST. Absolute 10*9/L 5:02 PM [facility] Immature 0.04 0.00 - 02/25/2021 ST. Granulocytes 0.06 5:02 PM CDT [facility] 10*9/L [facility] Specimen Anatomical Collection Method / Collection Time Recei pee Time (Source) Location / Volume Laterality Blood BLOOD SPECIMEN / Venipuncture / 02/25/2021 4:55 2020 4:59 Unknown Unknown PM CDT PM CDT Johnson Rubio MD EC HEMATOLOGY ORDERABLES Performing Organization Address City/State/ZIP Code Phon e Number [facility] [address] [place] [address] LABORATORY documented in this encounter Visit [...] Cap by Deleted via home med 11/27/201802/25 [id number], mouth before large review ([id number]) [id number] meals UNIT Capsule Delayed Release Particles documented [...]
--- OUTSIDE RECORDS SUMMARY | 2022-05-28 07:34 | XMS_ITS | Encounter Summary ---
:1945 Author Organization [employer] Address [address] [address] Phone Care Team Providers Name Role Phone [...]
== END 2022-05-27 13:51 | disposition home or self-care (01) ==
PROVIDERS: Visit Provider Family Medicine
DX: Z74.01 Bed confinement status (principal)
CPT/HCPCS: A0425; A0428

== ENCOUNTER 2022-06-18 08:06 | Outpatient (CLI) | payer MEDICAID, SELFPAY | END 2022-06-18 08:07 | disposition home or self-care (01) | LOC: WOUND 08:07 | PROVIDERS: Visit Provider Nurse Practitioner Family | DX: E11.622 Type 2 diabetes mellitus with other skin ulcer (principal); Z79.4 Long term (current) use of insulin; L89.310 Pressure ulcer of right buttock, unstageable | CPT/HCPCS: 10060; 99213 ==

== ENCOUNTER 2024-05-11 11:27 | Outpatient (CLI) | payer OTHER, SELFPAY ==
--- OUTSIDE RECORDS SUMMARY | 2024-06-02 00:43 | XMS_ITS | Encounter Summary ---
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 This section includes the names of all active insurance providers for the patient. Insurance Provider Type of Coverage Plan Name Start of Policy Coverage End of Policy Coverage Group Number Member ID Insurance Provider's Telephone Number Policy Mar's Name Patient's Relationship to Policy Mar [facility] [place] [facility] ([place]NR) MEDICARE [facility] ([facility]) Sep 29, 2019 [id number] RENEE,ONI MON PATIENT [facility] [place] [facility] (WNR) MEDICARE ([place]) [facility] ([facility]) Sep 29, 2008 [id number] RENEE,SI MON PATIENT [facility] [place] [facility] ([place]NR) MEDICARE [facility] (R) Sep 29, 2008 [id number] RENEE,SI MON PATIENT [facility] (WNR) MEDICARE [facility] ([facility]) Sep 29, 2019 [id number] ONI DURAN PATIENT [facility] MCR (WNR) MEDICARE ADVANTAGE MCR (WNR) Sep 29, 2010 [id number] 42 ONI DURAN PATIENT Selected Encounter This section includes the information on record at OR for the Encounter. Date/Time Encounter Type Encounter Description Reason Provider Source Jul 08, 2023 02:30 PM ASSISTIVE TECHNOLOGY ASSESS WHEELCHAIR & ADVAN MOBILITY ICD-10-CM I69.351 Hemiplga following cerebral infrc aff right dominant side TYLOR THORNEMEI ROSAH [facility] Encounter Template Text not used by OR Assessments - Encounter Diagnoses This section includes the primary and secondary diagnoses documented for the Encounter. Date/Time Primary/Secondary Diagnosis Diagnosis Name Provider Source Jul 09, 2023 02:54 PM PRIMARY Hemiplga following cerebral infrc aff right dominant side POLI THORNE [facility] Plan of Treatment: Future Appointments (+ 6 months) and Future Tests (+/- 45 days) The Plan of Treatment section includes future care activities for the patient from all [place] treatmentfacilities. This section includes future appointments and future orders which are active, pending or scheduled. Future Appointments This section includes appointments that were scheduled to occur 6 months from the date of the Encounter, up to a maximum of 20 appointments. The data comes from all [place] treatment facilities. Appointment Date/Time Appointment Type Appointme nt Facility Name Jul 14, 2023 10:30 AM [place]ORY [place]IC[place] [facility] Jul 15, 2023 06:20 PM [place]ORY - [place]ONE [place] [facility] Jul 29, 2023 01:00 PM AMBUL[place]ORY - [place] [facility] Sep 08, 2023 11:00 AM [place]ORY - [place]ONE [place] [facility] Sep 10, 2023 03:30 PM [place]ORY [place]IC[place] [facility] Sep 22, 2023 10:28 AM [place]ORY - NONE [place] [facility] Sep 30, 2023 05:00 PM [place]ORY - [place]ONE [place] [facility] Oct 21, 2023 01:30 PM AMBUL[place]ORY [place] [facility] Oct 21, 2023 02:30 PM [place]ORY [place]IC[place] [facility] Nov 03, 2023 09:30 AM [place]ORY [place]IC[place] [facility] Nov 03, 2023 10:00 AM [facility] Nov 03, 2023 10:30 AM [facility] Nov 06, 2023 10:00 AM [facility] Nov 06, 2023 02:00 PM AMBULATORY - SURGERY [facility] Nov 11, 2023 01:30 PM AMBULATORY - SURGERY [facility] Nov 26, 2023 10:30 AM [facility] Lab Results: +/- 30 days of the encounter This section includes the Chemistry and Hematology Lab Results on record with OR for the patient. Radiology Reports and Pathology Reports are provided separately, in subsequent sections. Lab Results This section contains the Chemistry/Hematology Results that were resulted 30 days before or 30 daysafter the date of the Encounter. Date/Time Source Result Type Result - Unit Interpretation Reference Range Comment Jul 08, 2023 01:48 PM [facility] BASIC METABOLIC PANEL+MG Specimen Type: PLASMA No comment entered. Ordering Provider: MYRTLE MAGUIRE Report Released Date/Time: February 03, 2023 04:22 PM Reporting Lab: [facility] [id number] Performing Lab: [facility] [id number] CREATININE 1.4 mg/dL H 0.7-1.2 UREA NITROGEN 28 mg/dL H 8-26 GLUCOSE 373 mg/dL H 70-100 SODIUM 137 mmol/L 136-145 POTASSIUM 4.7 mmol/L 3.5-5.1 CHLORIDE 105 mmol/L 98-107 CO2 23 mmol/L 22-29 CALCIUM 8.9 mg/dL 8.4-10.2 MAGNESIUM 2.2 mg/dL 1.6-2.6 ANION GAP 9 mmol/L 5-15 .CREAT EGFR(CKD-EPI ) 51 L >60 Jul 08, 2023 01:48 PM [facility] CBC Specimen Type: BLOOD No comment entered. Ordering Provider: MYRTLE MAGUIRE Report Released Date/Time: February 03, 2023 04:22 PM Reporting Lab: [facility] [id number] Performing Lab: [facility] [id number] WBC 6.28 10*3/uL 4.0-11.0 RBC 4.13 10*6/uL L 4.6-6.2 HGB 11.9 g/dL L 13.5-17.9 HCT 36.2 L 41-54 MCV 87.7 fL 80-100 MCH 28.8 pg 27-33 MCHC 32.9 g/dL 32.0-37.5 PLT 264 10*3/uL 150-400 MPV 9.1 fL 7.4-10.4 RDW 15.3 H 11.5-14.5 Social History: Smoking Status (Most current) and Tobacco Use (All prior to encounter date) This section includes the most current, and the historical, smoking and tobacco- related health factors from the [place] facility where the Encounter took place. Current Smoking Status This section includes the most current smoking, or tobacco-related health factor, from the [place] facility where the Encounter took place. Date/Time Current Smoking Status Comment Facil ity Jun 13, 2020 10:00 AM VA-TOBACCO FORMER USER [facility] Tobacco Use History This section includes a history of the smoking, or tobacco-related health factors, that were collected on or before the date of the Encounter. The data comes from the [place] facility where the Encounter took place. Date/Time Smoking Status/Tobacco Use Comment F acility Jun 13, 2020 10:00 AM VA-TOBACCO QUIT 15 YRS OR MORE [facility] May 20, 2019 12:18 PM VA-TOBACCO FORMER USER [facility] May 20, 2019 12:18 PM VA-TOBACCO QUIT 15 YRS OR MORE [facility] Jul 30, 2018 08:31 AM VA-TOBACCO FORMER USER [facility] Jul 30, 2018 08:31 AM VA-TOBACCO QUIT 15 YRS OR MORE [facility] Aug 25, 2017 08:04 AM FORMER TOBACCO USER 7Y OR GREATE R [facility] Nov 08, 2016 08:12 AM FORMER TOBACCO USER 7Y OR GREATE R [facility] Nov 29, 2015 12:46 PM FORMER TOBACCO USER 7Y OR GREATE R [facility] February 23, 2015 12:57 PM FORMER TOBACCO USER 7Y OR GREATE R [facility] January 27, 2014 10:10 AM FORMER TOBACCO USER 7Y OR GREATE R [facility] Mar 17, 2007 09:11 AM FORMER TOBACCO USER 7Y OR GREATE R [facility] Advance Directives: All historical and current Section Date Range: From patient's date of to the date document was created. This section includes ALL of a patient's completed or amended [place] Advance and Rescinded Directives. The entries below indicate that a directive exists for the patient, but an actual copy is not included with this document. The data comes from all [place] facilities. Date Advance Directives Provider Source Mar 17, 2007 ADVANCE DIRECTIVE ALBERTO RODRIGUEZ [facility] Encounter Notes: All associated encounter notes This section contains the clinical notes associated to the Encounter. Date/Time Encounter Note(s) Provider Source Jul 08, 2023 03:43 PM OCCUPATIONAL THERAPY DISCHARGE NOTE: LOCAL TITLE: OT-DISCHARGE NOTE STANDARD TITLE: OCCUPATIONAL THERAPY DISCHARGE NOTE DATE OF NOTE: JUL 08, 2023@15:43 ENTRY DATE: JUL 08, 2023@15:43:50 AUTHOR: POLI THORNE EXP COSIGNER: URGENCY: STATUS: COMPLETED OCCUPATIONAL PROGRESS NOTE Treatment Diagnosis: Hemiplegia and Hemiparesis Following Cerebral Infarction Affecting right Dominant Side(ICD-10-CM I69.351) Reduced Mobility Referring Provider: CED EPSTEIN Date of Initial: Mar 21, 2023 Precautions: falls Pt seen as an outpatient on 07/08/2023 for: - Assistive technology adjustments and training 55 mins (4 Units) Carlin arrives this date in his mwc accompanied by his . He is attending clinic today for installation and fitting of a comfort arm for his pwc for his right UE and installation and fitting of a taller back rest. Comfort Arm installed onto right armrest of carlin's pwc. Adjusted height and orientation of the support. Instructed carlin and his on use of wrist strap provided to stabilize UE. Installed new back rest onto carlin's pwc, adjusted it to fit appropriately and provide trunk support. Headrest was removed from old back and placed on current taller back and adjusted to the appropriate position. Padminit reports increased comfort and support from both items. GOALS: - Patient verbalized understanding of responsibilities for transporting power mobility device, and PSAS repair policy. - MET - Patient will demonstrate appropriate use of new power mobility device on a variety surfaces. - MET - Patient will verbalize understanding of safety concepts about power mobility use and incorporate into driving skills. MET NEW GOAL 05/20/23 By the end of the episode of care the new power wheelchair will provide trunk support needed to facilitate function and arm support for proper positioning and safety of hemiparetic right arm. - MET EDUCATION: Readiness to Learn: Ready to learn Educational Topics: proper positioning for trunk, head and UE Participant(s): Patient & Teaching Strategy: 1:1 Participants verbalize understanding Plan: All goals met. No further OT needs identified. D/C OT /jeffry/ POLI THORNE OTR/Sunil,ATP,SMS OCCUPATIONAL THERAPIST Signed: 07/09/2023 14:54 POLI THORNE [facility]
--- OUTSIDE RECORDS SUMMARY | 2024-06-02 00:43 | XMS_ITS | Encounter Summary ---
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 [place] Organization [facility] [place] Address [address] [place] [address] Care Team Providers Care Sales Department Supervisor Name Role Phone LUCIAN CED Primary Care Provider Unavailabl e Insurance Providers: [...] Relationship to Policy Mar [facility] [place] [facility] ([place]NR) MEDICARE [facility] ([facility]) Sep 29, 2019 [id number] 00 ONI DURAN MON PATIENT [facility] [place] [facility] ([place]NR) MEDICARE ([place]) [facility] ([facility]) Sep 29, 2008 [id number] ONI DURAN MON PATIENT [facility] [place] [facility] (WNR) MEDICARE ADVANTAGE [facility] (R) Sep 29, 2008 [id number] ONI DURAN MON PATIENT [facility] (WNR) MEDICARE ADVANTAGE [facility] ([facility]) Sep 29, 2019 [id number] 00 ONI DURAN PATIENT [facility] (WNR) MEDICARE ADVANTAGE [facility] (WNR) Sep 29, 2010 [id number] 42 ONI DURAN PATIENT Selected Encounter This section includes the information on record at [place] for the Encounter. Date/Time Encounter Type Encounter Description Reason Pro vider Source Jul 24, 2023 11:56 AM Outpatient Encounter [facility] CONSULT [facility] Encounter Template Text not used [...] [place] treatment facilities. Appointment Date/Time Appointment Type Appointme nt Facility Name Jul 29, 2023 01:00 PM AM[place]UL[place]ORY [place] [facility] Sep 08, 2023 11:00 AM [place]ORY - [place]ONE [place] [facility] Sep 10, 2023 03:30 PM [place]IC[place] [facility] Sep 22, 2023 10:28 AM [place]ORY [place]ONE [place] [facility] Sep 30, 2023 05:00 PM [place]ORY - [place] [facility] Oct 21, 2023 01:30 PM [place]ORY [place] [facility] Oct 21, 2023 02:30 PM [place]IC[place] [facility] Nov 03, 2023 09:30 AM [place]ORY [place]IC[place] [facility] Nov 03, 2023 10:00 AM [place]ORY [place]IC[place] [facility] Nov 03, 2023 10:30 AM [place]IC[place] [facility] Nov 06, 2023 10:00 AM [place]ORY [place] [facility] Nov 06, 2023 02:00 PM [place] [facility] Nov 11, 2023 01:30 PM [place]ORY [place] [facility] Nov 26, 2023 10:30 AM [place]ORY - [place]ONE [place] [facility] Jan 12, 2024 08:00 AM [place]ORY [place] [facility] Jan 12, 2024 09:00 AM AMBULATORY - NONE [facility] Jan 15, 2024 07:00 AM AMBULATORY - NONE [facility] Jan 15, 2024 09:30 AM AMBULATORY - SURGERY [facility] Lab Results: +/- 30 days of [...] Range Comment Jul 08, 2023 01:48 PM [facility] BASIC METABOLIC PANEL+MG Specimen Type: PLASMA No comment entered. Ordering Provider: MYRTLE MAGUIRE Report Released Date/Time: February 03, 2023 04:22 PM Reporting Lab: [facility] [id number] Performing Lab: [facility] [id number] CREATININE 1.4 mg/dL H 0.7-1.2 UREA NITROGEN 28 mg/dL H 8-26 GLUCOSE 373 mg/dL H 70-100 SODIUM 137 mmol/L 136-145 POTASSIUM 4.7 mmol/L 3.5-5.1 CHLORIDE 105 mmol/L 98-107 CO2 23 mmol/L 22-29 CALCIUM 8.9 mg/dL 8.4-10.2 MAGNESIUM 2.2 mg/dL 1.6-2.6 ANION GAP 9 mmol/L 5-15 .CREAT EGFR(CKD-EPI ) 51 L >60 Jul 08, 2023 01:48 PM [facility] CBC Specimen Type: BLOOD No comment entered. Ordering Provider: MYRTLE MAGUIRE Report Released Date/Time: February 03, 2023 04:22 PM Reporting Lab: [facility] [id number] Performing Lab: [facility] [id number] WBC 6.28 10*3/uL 4.0-11.0 RBC 4.13 10*6/uL [...] and tobacco- related health factors from the [place] facility where the Encounter took place. Current Smoking Status This section includes the most current smoking, or tobacco-related health factor, from the [place] facility where the Encounter took place. Date/Time Current Smoking Status Comment Facil ity Jun 13, 2020 10:00 AM VA-TOBACCO FORMER USER [facility] Tobacco Use History This section includes a history of the smoking, or tobacco-related health factors, that were collected on or before the date of the Encounter. The data comes from the [place] facility where the Encounter took place. Date/Time Smoking Status/Tobacco Use Comment F acility Jun 13, 2020 10:00 AM VA-TOBACCO QUIT 15 YRS OR MORE [facility] May 20, 2019 12:18 PM VA-TOBACCO FORMER USER [facility] May 20, 2019 12:18 PM VA-TOBACCO QUIT 15 YRS OR MORE [facility] Jul 30, 2018 08:31 AM VA-TOBACCO FORMER USER [facility] Jul 30, 2018 08:31 AM [place] 15 YRS [place] MORE [facility] Aug 25, 2017 08:04 AM FORMER TOBACCO USER 7Y OR GREATE R [facility] Nov 08, 2016 08:12 AM FORMER TOBACCO USER 7Y OR GREATE R [facility] Nov 29, 2015 12:46 PM FORMER TOBACCO USER 7Y OR GREATE R [facility] February 23, 2015 12:57 PM FORMER TOBACCO USER 7Y OR GREATE R [facility] January 27, 2014 10:10 AM FORMER TOBACCO USER 7Y OR GREATE R [facility] Mar 17, 2007 09:11 AM FORMER TOBACCO USER 7Y OR GREATE R [facility] Advance Directives: All historical and [...] Mar 17, 2007 ADVANCE DIRECTIVE ALBERTO RODRIGUEZ [facility] Encounter Notes: All associated encounter notes This section contains the clinical notes associated to the Encounter. Date/Time Encounter Note(s) Provider Source Jul 24, 2023 11:56 AM PHARMACY NOTE: LOCAL TITLE: PHARMACY NON [place] CARE MEDICATIONS STANDARD TITLE: PHARMACY NOTE DATE OF NOTE: JUL 24, 2023@11:56 ENTRY DATE: JUL 24, 2023@11:56:27 AUTHOR: DAMIAN GARIBAY COSIGNER: URGENCY: STATUS: COMPLETED [facility] RECEIVED electronic prescription(s) (eRX(s)) from NON-VA Provider: NANETTE PATTERSON Date eRX received: Jun not eligible to receive non-VA prescription(s) at this time. Prescription(s) REDIRECTED via FAX to [facility] (Dual[facility] Care eRx Reference #: [id number] eRx Prescription Information: eRx Drug: insulin aspart (U-100) 100 unit/mL (3 mL) subcutaneous pen (NovoLOG FlexPen) eRx Qty: 3 eRx Refills: 11 eRx Days Supply: eRx Written Date: JUL 24, 2023 eRx Issue Date: Prohibit Renewals: No eRx Si untis before each meal tid before breakfast, lunch and dinner eRx Reference #: [id number] eRx Drug: insulin glargine (U-100) 100 unit/mL subcutaneous solution (Lantus U-100 Insulin) eRx Qty: 30 eRx Refills: 3 eRx Days Supply: eRx Written Date: JUL 24, 2023 eRx Issue Date: Prohibit Renewals: No eRx Sig: Inject 25 Units under the skin at bedtime. /jeffry/ NICKO DIAZ Pharmacist Signed: 07/24/2023 11:58 NICKO GARIBAY [facility]
--- OUTSIDE RECORDS SUMMARY | 2024-06-02 00:44 | XMS_ITS | Encounter Summary ---
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 (MD[facility] Organization [facility] (MD) Address [address] [place] [address] Care Team Providers Care Advertising Associate Name Role Phone CED EPSTEIN Primary Care Provider Unavailabl e Insurance Providers: [...] Relationship to Policy Mar [facility] [place] [facility] [place]NR[place]IC[place]AGE [facility] (R) Sep 29, 2019 [id number] ONI DURAN MON PATIENT [facility] [place] [facility] [place]) MEDICARE (M) [facility] (R) Sep 29, 2008 [id number] [phone] [id number] ONI DURAN MON PATIENT [facility] [place] [facility] ([place]NR) MEDICARE ADVANTAGE [facility] (WNR) Sep 29, 2008 [id number] [phone] [id number] ONI DURAN MON PATIENT [facility] (WNR) MEDICARE AD[facility]ANTAGE [facility] (WNR) Sep 29, 2019 [id number] ONI DURAN PATIENT [facility] MCR (WNR) MEDICARE ADVANTAGE [facility] (WNR) Sep 29, 2010 [id number] ONI DURAN PATIENT Selected Encounter This section includes the information on record at MD for the Encounter. 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 This section includes future appointments and future orders which are active, pending or scheduled. Future Appointments This section includes appointments that were scheduled to occur 6 months from the date of the Encounter, up to a maximum of 20 appointments. The data comes from all MD treatment facilities. Appointment Date/Time Appointment Type Appointme nt Facility Name Sep 22, 2023 10:28 AM [place] [facility] Sep 30, 2023 05:00 PM AM[place]ORY - [place] [facility] Oct 21, 2023 01:30 PM AM[place] [facility] Oct 21, 2023 02:30 PM [facility] Nov 03, 2023 09:30 AM [place] [facility] Nov 03, 2023 10:00 AM [facility] Nov 03, 2023 10:30 [facility] Nov 06, 2023 10:00 AM [facility] Nov 06, 2023 02:00 PM AMBUL[place]ORY - [place] [facility] Nov 11, 2023 01:30 PM AMBULATORY - SUR[facility] Nov 26, 2023 10:30 AM AM[place]ORY - [place] [facility] Jan 12, 2024 08:00 AM AMBULATORY - SURGERY [facility] Jan 12, 2024 09:00 AM AM[place]UL[place]ORY - [place]ONE [place] [facility] Jan 15, 2024 07:00 AM AM[place]UL[place]ORY - [place]ONE [place] [facility] Jan 15, 2024 09:30 AM AMBULATORY - SURGERY [facility] [facility] January 28, 2024 03:00 PM AM[place]UL[place]ORY [place] [facility] February 09, 2024 11:00 AM [facility] Mar 02, 2024 12:30 PM AM[place] [facility] Mar 04, 2024 02:00 PM AMBULATORY - SURGERY [facility] Mar 04, 2024 02:30 PM AMBULATORY - SURGERY [facility] Vital Signs: All taken on the encounter date This section contains inpatient and outpatient Vital Signs collected on the date of the Encounter. Date/Time Temperature Pulse Blood Pressure Respiratory Rate SP02 Pain Height Weight Body Mass Index Source Sep 10, 2023 03:35 PM 97.9 F 75 /min 146/79 mm[Hg] 15 /min 98 % 0 [facility] Social History: Smoking Status (Most current) and Tobacco Use (All prior to encounter date) This section includes the most current, and the historical, smoking and tobacco- related health factors from the MD facility where the Encounter took place. Current Smoking Status This section includes the most current smoking, or tobacco-related health factor, from the MD facility where the Encounter took place. Date/Time Current Smoking Status Comment Facil ity Sep 10, 2023 03:30 PM VA-TOBACCO FORMER USER [facility] Tobacco Use History This section includes a history of the smoking, or tobacco-related health factors, that were collected on or before the date of the Encounter. The data comes from the MD facility where the Encounter took place. Date/Time Smoking Status/Tobacco Use Comment F acility Sep 10, 2023 03:30 PM VA-TOBACCO QUIT 15 YRS OR MORE [facility] Jun 13, 2020 10:00 AM VA-TOBACCO FORMER USER [facility] Jun 13, 2020 10:00 AM VA-TOBACCO QUIT 15 YRS OR MORE [facility] May 20, 2019 12:18 PM VA-TOBACCO FORMER USER [facility] May 20, 2019 12:18 PM VA-TOBACCO QUIT 15 YRS OR MORE [facility] Jul 30, 2018 08:31 AM VA-TOBACCO FORMER USER [facility] Jul 30, 2018 08:31 AM VA-TOBACCO QUIT 15 YRS OR MORE [facility] Aug 25, 2017 08:04 AM FORMER TOBACCO USER 7Y OR GREATE R [facility] Nov 08, 2016 08:12 AM FORMER TOBACCO USER 7Y OR GREATE R [facility] Nov 29, 2015 12:46 PM FORMER TOBACCO USER 7Y OR GREATE R [facility] February 23, 2015 12:57 PM FORMER TOBACCO USER 7Y OR GREATE R [facility] January 27, 2014 10:10 AM FORMER TOBACCO USER 7Y OR GREATE R [facility] Mar 17, 2007 09:11 AM FORMER TOBACCO USER 7Y OR GREATE R [facility] Advance Directives: All historical and current Section Date Range: From patient's date of to the date document was created. This section includes ALL of a patient's completed or amended MD Advance and Rescinded Directives. The entries below indicate that a directive exists for the patient, but an actual copy is not included with this document. The data comes from all MD facilities. Date Advance Directives Provider Source Mar 17, 2007 ADVANCE DIRECTIVE ALBERTO RODRIGUEZ [facility] Encounter Notes: All associated encounter notes This section contains the clinical notes associated to the Encounter. Date/Time Encounter Note(s) Provider Source Sep 10, 2023 05:58 PM INTERNAL MEDICINE NOTE: LOCAL TITLE: MEDICINE CLINIC NOTE STANDARD TITLE: INTERNAL MEDICINE NOTE DATE OF NOTE: SEP 10, 2023@17:58 ENTRY DATE: OCT 01, 2023@17:58:21 AUTHOR: CED EPSTEIN EXP COSIGNER: URGENCY: STATUS: COMPLETED Nurse's notes reviewed from today. BETH DURAN is a 78 year old MALE with the following Chief complaint: Multiple HPI/ROS: Pt is an 78 yo male with PMH of CVA (right sided hemiparesis), CAD, HTN, HL, Type II DM, CHF, Asthma, Depression, Bladder cancer (followed by outside Urology), who presents today with a few different concerns. 1. Pt has lesion on right ear that occasionally bleeds. Has had it for at least a few months. No current pain. 2. Pt asking for depends pull ups for urinary leakage. 3. Pt asking for OT consult for possible stair glide at home. Active problems - Computerized Problem List is the source for the followin. Hypertension (SNOMED CT 12004758) 2. Hyperlipidemia (SNOMED CT 58427181) 3. Tinnitus * 4. 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 Asthma (SNOMED CT 110600816) 6. Diabetic retinopathy (SNOMED CT 0020858) 7. Type 2 diabetes mellitus (SNOMED CT 73784503) 8. Umbilical hernia (SNOMED CT 742622477) 9. Obstructive sleep apnea (SNOMED CT 07678844) 10. Obesity * - 10 TOPIC GRAD 07-09-2012* 244.0 --> 09-17-12* 243.2 lbs 11. Anemia 12. Rosacea 13. Carcinoma of bladder - Followed by outside Urology. 14. Depression ([facility] [id number]) - prescribed by prosser for depression 15. Congestive heart failure 16. CVA - Cerebrovascular accident - 11/2020, outside hospital. - Right sided hemiparesis 17. Dysphagia as a late effect of cerebrovascular accident 18. Long-term current use of anticoagulant 19. Exposure to Agent [place] Allergies: PENICILLIN (Mar 17, 2007) SULFA DRUGS (Mar 17, 2007) DOXYCYCLINE (Jul 11, 2010) LISINOPRIL (Jul 22, 2011) AMLODIPINE (Nov 19, 2017) Active and Recently Outpatient Medications (including Supplies): Active Outpatient Medications Status 1) ACCU-CHEK GUIDE (GLUCOSE) TEST STRIP USE 1 STRIP ACTIVE FOUR TIMES A DAY TO CHECK BLOOD SUGAR--USE WITHIN 3 MINUTES OF REMOVING FROM CONTAINER 2) ALBUTEROL 90MCG (CFC-F) 200D ORAL INHL INHALE 2 PUFFS ACTIVE BY INHALATION EVERY 6 HOURS NEEDED FOR SHORTNESS OF BREATH 3) APIXABAN 5MG TAB TAKE ONE TABLET BY MOUTH EVERY 12 ACTIVE HOURS TO PREVENT STROKES 4) ARTIFICIAL TEARS POLYVINYL ALCOHOL INSTILL 2 DROPS IN ACTIVE LEFT EYE EVERY 2 HOURS NEEDED FOR DRY EYES 5) ATORVASTATIN CALCIUM 80MG TAB TAKE ONE TABLET BY ACTIVE MOUTH AT BEDTIME FOR CHOLESTEROL 6) BISACODYL 10MG RTL SUPP INSERT 1 SUPPOSITORY IN ACTIVE RECTUM EVERY DAY NEEDED FOR CONSTIPATION 7) CARBAMIDE PEROXIDE 6.5% OTIC SOLN INSTILL 5-10 DROPS ACTIVE IN BOTH EARS THREE TIMES A WEEK FOR EAR WAX REMOVAL INSTILL 10 DROPS INTO BILATERAL EARS THE NIGHT BEFORE(3X/WEEK) SHOWERS, GENTLY RINSE EARS WITH WARM WATER DURING SHOWERS 3 TIMES WEEKLY 8) CHOLECALCIF 25MCG (D3-1,000UNIT) TAB TAKE ONE TABLET ACTIVE BY MOUTH EVERY DAY FOR VITAMIN D SUPPLEMENT 9) DEPEND UNDERWEAR,MAXIMUM,MEN LARGE USE 1 BRIEF ACTIVE THREE TIMES A DAY NEEDED FOR URINARY INCONTINENCE 10) EMPAGLIFLOZIN 25MG TAB TAKE ONE TABLET BY MOUTH EVERY ACTIVE (S) DAY FOR DIABETES 11) ESCITALOPRAM OXALATE 10MG TAB TAKE ONE TABLET BY ACTIVE MOUTH EVERY DAY FOR MOOD 12) INSULIN,ASPART(EQV-NOVLG)1 00UN/ML FLXPEN INJECT HOLD DIRECTED UNDER THE SKIN THREE TIMES A DAY FOR DIABETES CHANGE IN DIRECTIONS. HOLD UNTIL PT REQUESTS. FLEXPEN. THREE TIMES A DAY WITH MEALS PER SLIDING SCALE: 150-199 = 2 UNITS. 200-249 = 4 UNITS. 250-299 = 6 UNITS. 300-349 = 8 UNITS. 350-399 = 10 UNITS. 400-500 = 12 UNITS. HOLD FOR BS < 100. NOTIFY PROVIDER IF BS > 500 OR < 70. PRIME INSULIN PEN WITH 2 UNITS PRIOR TO ADMINISTRATION. MAX 36 UNITS PER DAY. 13) INSULIN,GLARGINE 100 UNT/ML 3ML SOLOSTAR INJECT 25 ACTIVE UNITS UNDER THE SKIN AT BEDTIME FOR DIABETES 14) LACTOBACILLUS ACIDOPHILUS TAB TAKE 2 TABLETS BY MOUTH ACTIVE (S) EVERY DAY PROBIOTIC 15) LANCET,SOFTCLIX USE 1 LANCET FOUR TIMES A DAY ACTIVE *DISPOSE OF IN A HARD-PLASTIC CONTAINER WITH A SCREW-ON LIDCONTACT GARBAGE HAULER FOR PROPER DISPOSAL 16) LEVOTHYROXINE NA (SYNTHROID) 100MCG TAB TAKE ONE ACTIVE TABLET BY MOUTH EVERY DAY FOR THYROID 17) LIDOCAINE 4% TOP CREAM APPLY MODERATE AMOUNT ACTIVE TOPICALLY EVERY 6 HOURS NEEDED FOR PAIN 18) LOSARTAN 25MG TAB TAKE ONE TABLET BY MOUTH EVERY DAY ACTIVE FOR BLOOD PRESSURE 19) MELATONIN 3MG CAP/TAB TAKE 1 TABLET BY MOUTH AT ACTIVE BEDTIME FOR SLEEP 20) NEEDLE,PEN 31G,8MM USE 1 NEEDLE UNDER THE SKIN ACTIVE DIRECTED *DISPOSE OF IN A HARD-PLASTIC CONTAINER WITH A SCREW-ON LID CONTACT GARBAGE HAULER FOR PROPER DISPOSAL 21) OMEPRAZOLE 20MG EC CAP TAKE ONE CAPSULE BY MOUTH ACTIVE EVERY DAY FOR STOMACH ACID 22) POISE PAD,ULTIMATE ABSORB EXTRA COVERAGE USE PAD ACTIVE TOPICALLY THREE TIMES A DAY NEEDED FOR URINARY INCONTINENCE 23) POLYETHYLENE GLYCOL 3350 ORAL PWDR TAKE 17 GRAMS BY ACTIVE MOUTH EVERY DAY NEEDED FOR CONSTIPATION MIX IN 8 OUNCES OF LIQUID 24) SEMAGLUTIDE 1MG/0.75ML INJ PEN 3ML INJECT 1MG UNDER ACTIVE THE SKIN EVERY WEEK FOR DIABETES 25) SENNOSIDES 8.6MG TAB TAKE ONE TABLET BY MOUTH EVERY ACTIVE DAY NEEDED FOR CONSTIPATION 26) TORSEMIDE 10MG TAB TAKE ONE TABLET BY MOUTH EVERY DAY ACTIVE FOR EXCESS FLUID 27) TRAZODONE HCL 50MG TAB TAKE ONE TABLET BY MOUTH AT ACTIVE BEDTIME FOR SLEEP 28) ZINC OXIDE 20% OINT APPLY SMALL AMOUNT TOPICALLY ACTIVE THREE TIMES A DAY NEEDED FOR SKIN PROTECTION APPLY A THIN LAYER TO AFFECTED PERINEAL AREAS TOPICALLY 2-3 TIMES DAILY NEEDED. MAY DAB AND REAPPLY. DO NOT WIPE COMPLETELY OFF SKIN FOR EACH APPLICATION. EXAM: VS: Temp: 97.9 F [36.6 C] (09/10/2023 15:35) BP: 146/79 (09/10/2023 15:35) Pulse:75 (09/10/2023 15:35) Resp: 15 (09/10/2023 15:35) Pain: 0 (09/10/2023 15:35) Weight: WEIGHTS IN LAST 6 MONTHS - NONE FOUND Gen: alert, in no acute distress, current vital signs reviewed Resp: no respiratory distress, normal rate and effort, no accessory muscle use Psych: alert and awake, mood and affect appropriate, judgement not impaired Skin: superior right ear has 7-8mm pearly papule without active bleeding Assessment and Plan: 1. Right ear lesion Suspicious for BCC/SCC. Telederm gone by time of appt. Will request direct Derm consult. 2. Urinary dribbling Depends pull-ups and Poise pads ordered. 3. Home access OT consult for stair glide evaluation. Pt voiced understanding and agreement with plan. All questions answered. 20-29 minutes spent reviewing records, examining patient, and documenting findings. /jeffry/ Ced Epstein D.O. Staff Physician Signed: 10/01/2023 18:03 CED EPSTEIN [facility] Sep 10, 2023 03:36 PM INTERNAL MEDICINE OUTPATIENT NOTE: LOCAL TITLE: MEDICINE CLINIC NURSING NOTE STANDARD TITLE: INTERNAL MEDICINE OUTPATIENT NOTE DATE OF NOTE: SEP 10, 2023@15:36 ENTRY DATE: SEP 10, 2023@15:36:18 AUTHOR: JOHN ROTHMAN COSIGNER: ANTONIA DOWELL URGENCY: STATUS: COMPLETED SUBJECT: + TYPE OF VISIT: Appointment Check In Type of appointment: In-person appointment REASON FOR VISIT: Annual - dermatology consult for right ear. BP elevated notified Dr Epstein ALLERGIES: PENICILLIN (Mar 17, 2007) SULFA DRUGS (Mar 17, 2007) DOXYCYCLINE (Jul 11, 2010) LISINOPRIL (Jul 22, 2011) AMLODIPINE (Nov 19, 2017) VITAL SIGNS: Blood Pressure: 146/79 (09/10/2023 15:35)BP recheck 09/10/2023 @ 1539 146/78 Pulse: 75 (09/10/2023 15:35) Respiration: 15 (09/10/2023 15:35) Temperature: 97.9 F [36.6 C] (09/10/2023 15:35) Weight: Unavailable (05/22/2023 08:55) Height: Unavailable (05/22/2023 08:55) BMI: BMI not available without height O2 Sat: 98% (09/10/2023 15:35) Pain: 0 (09/10/2023 15:35) PAIN SCREEN: Patient is not having significant pain that they wish to discuss with their provider today. MEDICATION Active Outpatient Medications (including Supplies): ACCU-CHEK GUIDE (GLUCOSE) TEST STRIP USE 1 STRIP FOUR ACTIVE TIMES A DAY TO CHECK BLOOD SUGAR--USE WITHIN 3 MINUTES OF REMOVING FROM CONTAINER ALBUTEROL 90MCG (CFC-F) 200D ORAL INHL INHALE 2 PUFFS BY ACTIVE INHALATION EVERY 6 HOURS NEEDED FOR SHORTNESS OF BREATH APIXABAN 5MG TAB TAKE ONE TABLET BY MOUTH EVERY 12 HOURS ACTIVE TO PREVENT STROKES ARTIFICIAL TEARS POLYVINYL ALCOHOL INSTILL 2 DROPS IN LEFT ACTIVE EYE EVERY 2 HOURS NEEDED FOR DRY EYES ATORVASTATIN CALCIUM 80MG TAB TAKE ONE TABLET BY MOUTH AT ACTIVE BEDTIME FOR CHOLESTEROL BISACODYL 10MG RTL SUPP INSERT 1 SUPPOSITORY IN RECTUM ACTIVE EVERY DAY NEEDED FOR CONSTIPATION CARBAMIDE PEROXIDE 6.5% OTIC SOLN INSTILL 5-10 DROPS IN ACTIVE BOTH EARS THREE TIMES A WEEK FOR EAR WAX REMOVAL INSTILL 10 DROPS INTO BILATERAL EARS THE NIGHT BEFORE(3X/WEEK) SHOWERS, GENTLY RINSE EARS WITH WARM WATER DURING SHOWERS 3 TIMES WEEKLY CHOLECALCIF 25MCG (D3-1,000UNIT) TAB TAKE ONE TABLET BY ACTIVE MOUTH EVERY DAY FOR VITAMIN D SUPPLEMENT EMPAGLIFLOZIN 25MG TAB TAKE ONE TABLET BY MOUTH EVERY DAY ACTIVE (S) FOR DIABETES ESCITALOPRAM OXALATE 10MG TAB TAKE ONE TABLET BY MOUTH ACTIVE EVERY DAY FOR MOOD INSULIN,ASPART(EQV-NOVLG)1 00UN/ML FLXPEN INJECT HOLD DIRECTED UNDER THE SKIN THREE TIMES A DAY FOR DIABETES CHANGE IN DIRECTIONS. HOLD UNTIL PT REQUESTS. FLEXPEN. THREE TIMES A DAY WITH MEALS PER SLIDING SCALE: 150-199 = 2 UNITS. 200-249 = 4 UNITS. 250-299 = 6 UNITS. 300-349 = 8 UNITS. 350-399 = 10 UNITS. 400-500 = 12 UNITS. HOLD FOR BS < 100. NOTIFY PROVIDER IF BS > 500 OR < 70. PRIME INSULIN PEN WITH 2 UNITS PRIOR TO ADMINISTRATION. MAX 36 UNITS PER DAY. INSULIN,GLARGINE 100 UNT/ML 3ML SOLOSTAR INJECT 25 UNITS ACTIVE UNDER THE SKIN AT BEDTIME FOR DIABETES LACTOBACILLUS ACIDOPHILUS TAB TAKE 2 TABLETS BY MOUTH ACTIVE (S) EVERY DAY PROBIOTIC LANCET,SOFTCLIX USE 1 LANCET FOUR TIMES A DAY *DISPOSE ACTIVE OF IN A HARD-PLASTIC CONTAINER WITH A SCREW-ON LIDCONTACT GARBAGE [facility] FOR PROPER DISPOSAL LEVOTHYROXINE NA (SYNTHROID) 100MCG TAB TAKE ONE TABLET BY ACTIVE MOUTH EVERY DAY FOR THYROID LIDOCAINE 4% TOP CREAM APPLY MODERATE AMOUNT TOPICALLY ACTIVE EVERY 6 HOURS NEEDED FOR PAIN LOSARTAN 25MG TAB TAKE ONE TABLET BY MOUTH EVERY DAY FOR ACTIVE BLOOD PRESSURE MELATONIN 3MG CAP/TAB TAKE 1 TABLET BY MOUTH AT BEDTIME ACTIVE FOR SLEEP NEEDLE,PEN 31G,8MM USE 1 NEEDLE UNDER THE SKIN DIRECTED ACTIVE *DISPOSE OF IN A HARD-PLASTIC CONTAINER WITH A SCREW-ON LID CONTACT GARBAGE KATHYULER FOR PROPER DISPOSAL OMEPRAZOLE 20MG EC CAP TAKE ONE CAPSULE BY MOUTH EVERY DAY ACTIVE FOR STOMACH ACID POLYETHYLENE GLYCOL 3350 ORAL PWDR TAKE 17 GRAMS BY MOUTH ACTIVE EVERY DAY NEEDED FOR CONSTIPATION MIX IN 8 OUNCES OF LIQUID SEMAGLUTIDE 1MG/0.75ML INJ PEN 3ML INJECT 1MG UNDER THE ACTIVE SKIN EVERY WEEK FOR DIABETES SENNOSIDES 8.6MG TAB TAKE ONE TABLET BY MOUTH EVERY DAY ACTIVE NEEDED FOR CONSTIPATION TORSEMIDE 10MG TAB TAKE ONE TABLET BY MOUTH EVERY DAY FOR ACTIVE EXCESS FLUID TRAZODONE HCL 50MG TAB TAKE ONE TABLET BY MOUTH AT BEDTIME ACTIVE FOR SLEEP ZINC OXIDE 20% OINT APPLY SMALL AMOUNT TOPICALLY THREE ACTIVE TIMES A DAY NEEDED FOR SKIN PROTECTION APPLY A THIN LAYER TO AFFECTED PERINEAL AREAS TOPICALLY 2-3 TIMES DAILY NEEDED. MAY DAB AND REAPPLY. DO NOT WIPE COMPLETELY OFF SKIN FOR EACH APPLICATION. Over the Counter/Herbal Medications: The patient states that they take some outside medications and/or herbals. Nursing Annual Screening: Fall History Screen During the past 12 months, have you had any falls? Patient does not report any falls in the past 12 months. MEDICATIONS: Patient is on one of the following medication classes: Antihypertensives, Antidepressants, Antipsychotics, Diuretics, or Controlled substance medication used for pain. FALL RISK ADVICE: Fall Risk Advice provided. Handout entitled Fall Prevention At Home reviewed and given to patient and/or significant other. Script Talk Screen Are you able to read your prescription bottles with your glasses, magnifiers or other aids? Yes or patient not taking any prescriptions. Skin Screen Patient reports any current pressure ulcers, a history of pressure ulcers, or a wound from a medical scheduler or Patient is bed-confined or a wheelchair-user or Patient requires assistance to transfer/change position No, Skin Screen is Negative Home Abuse/Violence Screen Is your home free of abuse and violence? Yes MOVE! Program Screen Body Mass Index (BMI)= BMI not available without height [place]: Collection DT Specimen Test Name Result Units Ref Range 05/22/2023 08:37 BLOOD !! HEMOGLOBIN A1C 8.5 H % 4.0 - 6.0 !! Indicates COMMENTS AVAILABLE...Refer to Interim Lab Report. [place] Hgb A1C: No data available [place] Hgb A1C: No data available Point of Care Hgb A1C: POC HGB A1C____ Outpatient Nutrition Screen Body Mass Index (BMI)= BMI not available without height [place]: Collection DT Specimen Test Name Result Units Ref Range 05/22/2023 08:37 BLOOD !! HEMOGLOBIN A1C 8.5 H % 4.0 - 6.0 !! Indicates COMMENTS AVAILABLE...Refer to Interim Lab Report. [place] Hgb A1C: No data available [place] Hgb A1C: No data available Point of Care Hgb A1C: POC HGB A1C____ Is patient's BMI less than 18.5? No Does patient have swallowing, coughing, or chewing problems affecting oral intake? No Has patient experienced unplanned weight loss or gain greater than 10 pounds over the last 2 months? No Is patient's Hgb A1C (Glycosylated Hemoglobin) greater than 9.5? Information not available Is patient receiving Total Parenteral Nutrition (TPN) or Tube Feedings? No Patient Health Education Screen BARRIERS/SPECIAL NEEDS: Physical limitations PREFERRED STYLE OF LEARNING: No preference stated Client Assistive Service (ROBYN) Screen Does the patient require assistance with outpatient visit? No Tobacco Use Screening: The patient is a former tobacco user. The patient quit fifteen or more years ago. Homelessness/Food Insecurity Screen: In the past 2 months, have you been living in stable housing that you own, rent, or stay in as part of a household? Yes - Living in stable housing. Are you worried or concerned that in the next 2 months you may NOT have stable housing that you own, rent, or stay in as part of a household? No - Not worried about housing near future The [facility] reports the following: Within the past 12 months, you worried whether your food would run out before you got money to buy more. Never true Within the past 12 months, the food you bought just didn't last and you didn't have money to get more. Never true Food Insecurity Resources /es/ JOHN ROTHMAN SNT Signed: 09/10/2023 15:46 /es/ ANTONIA DOWELL MA, RN, [facility] REGISTERED NURSE Cosigned: 09/10/2023 15:49 JOHN ROTHMAN [facility] Sep 10, 2023 03:16 PM ADVANCE DIRECTIVE: LOCAL TITLE: AD NOTIFICATION AND SCREENING STANDARD TITLE: ADVANCE DIRECTIVE DATE OF NOTE: SEP 10, 2023@15:16 ENTRY DATE: SEP 10, 2023@15:16:33 AUTHOR: ANDRIY AN EXP COSIGNER: URGENCY: STATUS: COMPLETED ADVANCE DIRECTIVE NOTIFICATION: Patient was given written notification of the following rights: 1. Accept or refuse any medical treatment. 2. Complete a durable power of real estate associate attorney for health care. 3. Complete a living will. ADVANCE DIRECTIVE SCREENING: Does patient have an Advance Directive? The patient has an Advance Directive. Does the patient wish to make any changes or revoke their current Advance Directive? Yes, the patient has an Advance Directive, but it is not in the medical record. [facility] was asked to obtain a copy for their medical record. /jeffry/ ANDRIY AN MEDICAL SUPPORT ASSISTAT Signed: 09/10/2023 15:17 ANDRIY AN [facility]
--- OUTSIDE RECORDS SUMMARY | 2024-06-02 00:44 | XMS_ITS | Encounter Summary ---
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 ([facility]) Organization [facility] Address [address] [place] [address] Care Team Providers Care Head Shipper Name Role Phone CED EPSTEIN Primary Care [...] Relationship to Policy Mar [facility] [place] [facility] (WNR) MEDICARE ADVANTAGE [facility] (R) Sep 29, 2019 [id number] ONI DURAN MON PATIENT [facility] (WNR) MEDICARE (M) [facility] (R) Sep 29, 2008 [id number] [phone] ONI DURAN MON PATIENT [facility] (WNR) MEDICARE ADVANTAGE [facility] (WNR) Sep 29, 2008 [id number] ONI DURAN MON PATIENT [facility] (WNR) MEDICARE ADVANTAGE [facility] ([facility] Sep 29, 2019 [id number] ONI DURAN PATIENT [facility] (WNR) MEDICARE ADVANTAGE [facility] (WNR) Sep 29, 2010 [id number] ONI DURAN PATIENT Selected Encounter This section includes the information on record at NH for the Encounter. Date/Time Encounter Type Encounter Description Reason Provider Source Oct 21, 2023 01:30 PM OFFICE O/P EST MOD 30 MIN DERMATOLOGY ICD-10-CM Z85.828 Personal history of other malignant neoplasm of skin NIYAH SAAVEDRA Encounter Template Text not used by NH Assessments - Encounter Diagnoses This section includes the primary and secondary diagnoses documented for the Encounter. Date/Time Primary/Secondary Diagnosis Diagnosis Name Provider Source Oct 21, 2023 02:21 PM PRIMARY Personal history of other malignant neoplasm of skin JOSE L ANTOINE [facility] Oct 21, 2023 02:21 PM SECONDARY Actinic keratosis JOSE L ANTOINE [facility] Oct 21, 2023 02:21 PM SECONDARY Hemangioma of skin and subcutaneous tissue JOSE L ANTOINE [facility] Oct 21, 2023 02:21 PM SECONDARY Nevus, non-neoplastic JOSE L ANTOINE [facility] Oct 21, 2023 02:21 PM SECONDARY Other seborrheic keratosis JOSE L ANTOINE [facility] Plan of Treatment: Future Appointments (+ 6 months) and Future Tests (+/- 45 days) The Plan of Treatment section includes future care activities for the patient from all NH treatmentcilities. This section includes future appointments and future orders which are active, pending or scheduled. Future Appointments This section includes appointments that were scheduled to occur 6 months from the date of the Encounter, up to a maximum of 20 appointments. The data comes from all NH treatment facilities. Appointment Date/Time Appointment Type Appointme nt Facility Name Nov 03, 2023 09:30 AM AMBULATORY - MEDICINE [facility] Nov 03, 2023 10:00 AM AMBULATORY - MEDICINE [facility] Nov 03, 2023 10:30 AM AMBULATORY - MEDICINE [facility] Nov 06, 2023 10:00 AM AM[place]UL[place]ORY - [place]ICINE [place] [facility] Nov 06, 2023 02:00 PM AMBUL[place]ORY [place] [facility] Nov 11, 2023 01:30 PM AMBULATORY - SURGERY [facility] Nov 26, 2023 10:30 AM AMBULATORY - NONE [place] [facility] Jan 12, 2024 08:00 AM AMBULATORY - [place]GERY [place] [facility] Jan 12, 2024 09:00 AM AMBUL[place]ORY - NONE [place] [facility] Jan 15, 2024 07:00 AM AM[place]UL[place]ORY - NONE [place] [facility] Jan 15, 2024 09:30 AM AMBULATORY - SURGERY [place] [facility] January 28, 2024 03:00 PM AMBULATORY - NONE [place] [facility] February 09, 2024 11:00 AM AMBULATORY - SURGERY [facility] Mar 02, 2024 12:30 PM [facility] Mar 04, 2024 02:00 PM [facility] Mar 04, 2024 02:30 PM AMBULATORY - SURGERY [facility] [place] Mar 08, 2024 11:15 AM AMBULATORY - SURGERY [facility] Mar 29, 2024 02:00 PM [facility] Apr 19, 2024 11:15 PM AM[facility]ULATORY - NONE [facility] Active, Pending, and Scheduled Orders This section includes a listing of several types of active, pending, and scheduled orders, including clinic medications orders, diagnostic test orders, procedure orders and consult orders; where the start date of the order is 45 days before the date of the Encounter or 45 days after the date of theEncounter. The data comes from all NH treatment facilities. Test Date/Time Test Type Test Details Facility Name Nov 03, 2023 12:00 AM Laboratory - Chemi stry Order BASIC METABOLIC PANEL+MG PLASMA SP ONCE [facility] Lab Results: +/- 30 days of the encounter This section includes the Chemistry and Hematology Lab Results on record with NH for the patient. Radiology Reports and Pathology Reports are provided separately, in subsequent sections. Lab Results This section contains the Chemistry/Hematology Results that were resulted 30 days before or 30 daysafter the date of the Encounter. Date/Time Source Result Type Result - Unit Interpretation Reference Range Comment Nov 03, 2023 09:16 AM [facility] HEMOGLOBIN A1C Specimen Type: BLOOD Comment: Values obtained from A1C measurements can vary. For typical A1C assays, a reported value of 7.0 could actually be between 6.7 and 7.3 if measured by a reference method. A reported value of 9.0 could actually be between 8.7 and 9.3. Ref: http://www.ngs p.org/CAPdata. asp Ordering Provider: JOHN PEARCE Report Released Date/Time: May 22, 2023 02:36 PM Reporting Lab: [facility] [id number] Performing Lab: [facility] [id number] HEMOGLOBIN A1C 7.3 H 4.0-6.0 Vital Signs: All taken on the encounter date This section contains inpatient and outpatient Vital Signs collected on the date of the Encounter. Date/Time Temperature Pulse Blood Pressure Respiratory Rate SP02 Pain Height Weight Body Mass Index Source Oct 21, 2023 02:36 PM 98.5 F 73 /min 138/73 mm[Hg] 18 /min 97 % 0 [place] [facility] Social History: Smoking Status (Most current) and Tobacco Use (All prior to encounter date) This section includes the most current, and the historical, smoking and tobacco- related health factors from the NH facility where the Encounter took place. Current Smoking Status This section includes the most current smoking, or tobacco-related health factor, from the NH facility where the Encounter took place. Date/Time Current Smoking Status Comment Faith ity Sep 10, 2023 03:30 PM VA-TOBACCO FORMER USER [facility] Tobacco Use History This section includes a history of the smoking, or tobacco-related health factors, that were collected on or before the date of the Encounter. The data comes from the NH facility where the Encounter took place. Date/Time Smoking Status/Tobacco Use Comment F acbenja Sep 10, 2023 03:30 PM VA-TOBACCO QUIT 15 YRS OR MORE [facility] Jun 13, 2020 10:00 AM VA-TOBACCO FORMER USER [facility] Jun 13, 2020 10:00 AM VA-TOBACCO QUIT 15 YRS OR MORE [facility] May 20, 2019 12:18 PM VA-TOBACCO FORMER USER [facility] May 20, 2019 12:18 PM VA-TOBACCO QUIT 15 YRS OR MORE [facility] Jul 30, 2018 08:31 AM VA-TOBACCO FORMER USER [facility] Jul 30, 2018 08:31 AM VA-TOBACCO QUIT 15 YRS OR MORE [facility] Aug 25, 2017 08:04 AM FORMER TOBACCO USER 7Y OR GREATE R [facility] Nov 08, 2016 08:12 AM FORMER TOBACCO USER 7Y OR GREATE R [facility] Nov 29, 2015 12:46 PM FORMER TOBACCO USER 7Y OR GREATE R [facility] February 23, 2015 12:57 PM FORMER TOBACCO USER 7Y OR GREATE R [facility] January 27, 2014 10:10 AM FORMER TOBACCO USER 7Y OR GREATE R [facility] Mar 17, 2007 09:11 AM FORMER TOBACCO USER 7Y OR GREATE R [facility] Advance Directives: All historical and current Section [...] Mar 17, 2007 ADVANCE DIRECTIVE ALBERTO RODRIGUEZ [facility] Pathology Reports: +/- 30 days of the encounter Pathology Reports For cases when an order for pathology services may have been completed prior to the date of the Encounter, the report list includes the Pathology Reports that were completed up to 30 days before dateof the Encounter. For cases when an order for pathology services may have been completed after the date of the Encounter, the report list also includes the Pathology Reports that were completed up to30 days after date of the Encounter. The data comes from all [place] treatment facilities. Date/Time Pathology Report Provider Source Oct 24, 2023 01:05 PM LR SURGICAL PATHOL OGY REPORT: LOCAL TITLE: LR SURGICAL PATHOLOGY REPORT STANDARD TITLE: PATHOLOGY REPORT DATE OF NOTE: OCT 24, 2023@13:05:29 ENTRY DATE: OCT 24, 2023@13:05:29 AUTHOR: JANE DE LA VEGA EXP COSIGNER: URGENCY: STATUS: COMPLETED $APHDR Reporting Lab: [facility] [CLIA# [id number]] [place] [address] - - - - - - - - - - - - - - - - - - - - - - - - - - - - - - - - - - - - - - - - MEDICAL RECORD SURGICAL PATHOLOGY - - - - - - - - - - - - - - - - - - - - - - - - - - - - - - - - - - - - - - - - PATHOLOGY REPORT Accession No. [id number] - - - - - - - - - - - - - - - - - - - - - - - - - - - - - - - - - - - - - - - - $TEXT Submitted by: JESS ANTOINE Date obtained: Oct 21, 2023 - - - - - - - - - - - - - - - - - - - - - - - - - - - - - - - - - - - - - - - - Specimen (Received Oct 22, 2023 08:58): 1. A) R SUPERIOR HELIX 2. B) R CONCHAL BOWL 3. C) R DISTAL FOREARM - - - - - - - - - - - - - - - - - - - - - - - - - - - - - - - - - - - - - - - - BRIEF CLINICAL HISTORY: 78 gladys old male with history of NMSC (A) 6 month history of ulcerated scaling plaque and (B) 6 month history of scaling plaque (3) crusting plaque with erythema Procedure: Shave - - - - - - - - - - - - - - - - - - - - - - - - - - - - - - - - - - - - - - - - PREOPERATIVE DIAGNOSIS: A & B) SCC vs SCCis vs ulcerated BCC 3) SCC vs SCCis vs trauma - - - - - - - - - - - - - - - - - - - - - - - - - - - - - - - - - - - - - - - - OPERATIVE FINDINGS: - - - - - - - - - - - - - - - - - - - - - - - - - - - - - - - - - - - - - - - - POSTOPERATIVE DIAGNOSIS: Surgeon/physician: JESS ANTOINE =-=-=-=-=-=-=-=-=-=-=-=-=- =-=-=-=-=-=-=-=-=-=-=-=-=- =-=-=-=-=-=-=-=-=-=-=-=-=- = - - - - - - - - - - - - - - - - - - - - - - - - - - - - - - - - - - - - - - - - PATHOLOGY REPORT Accession No. [id number] - - - - - - - - - - - - - - - - - - - - - - - - - - - - - - - - - - - - - - - - GROSS DESCRIPTION: The requisition form and specimen identification is confirmed. SPEC. 1 is labeled A) right superior helix and consists of two fragments of friable samson crusted skin measuring 0.5 X 0.4 X 0.2 cm and 1.0 X 0.6 X 0.2 cm. Both tissue fragments are inked. ce SPEC. 2 is labeled B) right conchal bowl and consists of a shave biopsy of samson skin measuring 0.8 X 0.8 X 0.1 cm. The skin surface has a hemorrhagic crust along one edge. The specimen is inked. ce SPEC. 3 is labeled right distal forearm and consists of a shave biopsy of a scaly samson plaque measuring 1.2 X 1.0 X 0.2 cm. The specimen is inked. ce (D) SMcCoy/er MICROSCOPIC DESCRIPTION: SPECS. 1, 2, 3. Microscopic examination performed. Deeper levels were obtained on Spec. 1. Spec. 3 was seen in consultation by Dr. Miguelito Pierce, dermatopathologist. RS. DIAGNOSIS: SPEC. 1 Skin, right superior helix, shave biopsy-- - Nodular basal cell carcinoma, ulcerated and fragmented - Tumor is present at inked margin SPEC. 2 Skin, right conchal bowl, shave biopsy-- - Nodular basal cell carcinoma - Deep and peripheral margins involved SPEC. 3 Skin, right distal forearm, shave biopsy-- - Consistent with seborrheic keratosis, traumatized (see COMMENT) COMMENT: Biopsy from the right distal forearm (Spec. 3) shows a lesion which is favored for a traumatized seborrheic keratosis. The differential diagnosis includes a regressing keratoacanthoma, however, this is not favored histologically. The lesion appears excised in the planes examined. Clinical correlation recommended. /jeffry/ JANE DE LA VEGA STAFF PATHOLOGIST, PATHOLOGY & LABORATORY [facility] Signed Oct 24, 2023@13:05 Performing Laboratory: Surgical Pathology Report Performed By: [facility] [CLIA# [id number]] [place] [address] $FTR - - - - - - - - - - - - - - - - - - - - - - - - - - - - - - - - - - - - - - - - (End of report) JANE DE LA VEGA MD rks Date Oct 24, 2023 - - - - - - - - - - - - - - - - - - - - - - - - - - - - - - - - - - - - - - - - BETH DURAN STANDARD FORM 515 ID:[id number] SEX:M :1945 AGE: 78 LOC:[id number] PCP: Ced Epstein MD /jeffry/ JANE DE LA VEGA STAFF PATHOLOGIST, PATHOLOGY & LABORATORY [facility] Signed: 10/24/2023 13:05 JANE DE LA VEGA [facility] Encounter Notes: All associated encounter notes This section contains the clinical notes associated to the Encounter. Date/Time Encounter Note(s) Provider Source Oct 27, 2023 01:13 PM COMMUNICATION NOTE : LOCAL TITLE: PATIENT CONTACT NOTE - DERMATOLOGY STANDARD TITLE: COMMUNICATION NOTE DATE OF NOTE: OCT 27, 2023@13:13 ENTRY DATE: OCT 27, 2023@13:14:01 AUTHOR: JESS ANTOINE EXP COSIGNER: URGENCY: STATUS: COMPLETED Results: DIAGNOSIS: SPEC. 1 Skin, right superior helix, shave biopsy-- - Nodular basal cell carcinoma, ulcerated and fragmented - Tumor is present at inked margin SPEC. 2 Skin, right conchal bowl, shave biopsy-- - Nodular basal cell carcinoma - Deep and peripheral margins involved SPEC. 3 Skin, right distal forearm, shave biopsy-- - Consistent with seborrheic keratosis, traumatized (see COMMENT) Informed patient of results above. Patient will be referred for Mohs at [facility]. Procedure explained to patient. Will await call for scheduling MMS. Otherwise feeling well and biopsy site healing well. Clinically indicated date 8 weeks Dermatology Problem List: # hx NMSC - Nodular basal cell carcinoma, ulcerated and fragmented Right superior helix s/p shave biopsy 10/21/23 pending [facility] Mohs - Nodular basal cell carcinoma - Right conchal bowl s/p shave biopsy 10/21/23 [facility] # nBCC, left lateral nose, s/p biopsy 05/20/18, s/p Mohs 11/02/18 # AKs, LN2 - calciprotriene + 5FU x 5 days (10/22/23) # SK, Right Distal Forearm s/p shave biopsy 10/21/23 # Seborrheic Dermatitis - start ketoconazole shampoo TIW staffed w/ Dr. Cervantes Total encounter time: 15 min /zhanna Antoine MD Resident, Dermatology Signed: 10/27/2023 13:16 JESS ANTOINE [facility] Oct 21, 2023 02:35 PM DERMATOLOGY NURSIN G OUTPATIENT NOTE: LOCAL TITLE: DERMATOLOGY CLINIC NURSING NOTE STANDARD TITLE: DERMATOLOGY NURSING OUTPATIENT NOTE DATE OF NOTE: OCT 21, 2023@14:35 ENTRY DATE: OCT 21, 2023@14:35:40 AUTHOR: ANDRIY FRANCO EXP COSIGNER: URGENCY: STATUS: COMPLETED Dermatology Clinic Nursing Note Post Procedure Nursing Note vaseline, telfa, medipore white tape applied to BIOPSY site on the RIGHT CONCHAL BOWL, RIGHT SUPERIOR HELIX, AND RIGHT DISTAL FOREARM. This bandage should be kept clean and dry for 1 day. After 1 day the bandage can be removed and the BIOPSY site should be gently cleaned once per day with a damp washcloth, patted dry, then covered with VASELINE and a bandage. Daily cleaning and dressing changes should be done until skin is fully healed. No other products should be used on the BIOPSY site i.e., hydrogen peroxide, rubbing alcohol, skin oils, creams, prescriptions until the area is completely healed. Educational Screening: Barriers to Learning/Special Needs: No Barriers Identified Preferred Style of Learning: No preference stated Teaching Strategy: 1:1 Written/printed material Demonstration Instruction: Patient/family/caregiver instructed in standard Post-Biopsy wound care. Printed instruction sheet provided for home reference: Skin Biopsy Patient Instruction Understanding: Patient/family/caregiver: Able to verbalize understanding. Follow up teaching: None needed /zhanna FRANCO LICENSED PRACTICAL NURSE Signed: 10/21/2023 14:49 ANDRIY FRANCO [facility] Oct 21, 2023 01:32 PM DERMATOLOGY CONSUL T: LOCAL TITLE: DERMATOLOGY CONSULT STANDARD TITLE: DERMATOLOGY CONSULT DATE OF NOTE: OCT 21, 2023@13:32 ENTRY DATE: OCT 21, 2023@13:32:52 AUTHOR: JESS ANTOINE EXP COSIGNER: URGENCY: STATUS: COMPLETED DERMATOLOGY CONSULT Has ADDENDA Clinic note Dermatology Problem List # NUB (A) Right superior helix s/p shave biopsy 10/21/23 - ddx SCC vs BCC ulcerated (B) Right conchal bowl s/p shave biopsy 10/21/23 - ddx SCC vs BCC ulcerated (C) Right Distal Forearm s/p shave biopsy 10/21/23 - ddx SCC vs SCCIS vs trauma # nBCC, left lateral nose, s/p biopsy 05/20/18, s/p Mohs 11/02/18 # AKs, LN2 - calciprotriene + 5FU x 5 days (10/22/23) # Seborrheic Dermatitis - start ketoconazole shampoo TIW SUBJECTIVE: BETH DURAN is a 78 year old MALE who presents today for skin check. Notes 6 month history of scaling plaque with the scale and crust in the right conchal bowl and right superior helix. Also new spot tender to palpation 6 months old on the right distal wrist. Otherwise no new, tender, non-healing, or bleeding lesions. Wears sunscreen sometimes. No other concerns today. Review of systems: CONST: Otherwise in baseline state of health. SKIN: As above in HPI, no additional skin concerns. OBJECTIVE: GEN: No acute distress. SKIN: UBSE (head/neck, trunk, arms, hands/fingernails) - Scalp with diffuse loose scale, greasy scale in a seborrheic distribution - On the scalp there are multiple gritty pink papules. - On the right superior helix crusted hemorrhagic plaque - On the right conchal bowl there is crusted hemorrhagic plaque - On the right distal forearm hypertrophic crusted pink plaque with scale. tender to palpation. - On the trunk and extremities, there are flesh-colored to light brown, waxy, stuck on papules and plaques. - On the trunk and extremities with accentuation in sun-exposed areas, there are light brown macules with uniform appearance. - On trunk and extremities, there are firm red papules. - Previous sites of skin cancer noted above were examined. No evidence for recurrence by inspection or palpation. ASSESSMENT & PLAN: # NUB (A) Right superior helix s/p shave biopsy 10/21/23 - ddx SCC vs BCC ulcerated (B) Right conchal bowl s/p shave biopsy 10/21/23 - ddx SCC vs BCC ulcerated - Right Distal Forearm s/p shave biopsy 10/21/23 - ddx SCC vs SCCIS vs trauma # History of NMSC. - No evidence of recurrence on exam today. - Counseled on use of sunscreen SPF 30+ # Seborrheic Dermatitis - ketoconazole shampoo TIW # Actinic keratoses - calcipotriene + fluoruracil x 5 days (prescribed 10/21/23) # Benign skin findings - Seborrheic keratoses - Solar lentigines - Velazquez hemangiomas - Clinically benign melanocytic nevi - Reassured of benign etiology - ABCDEs of melanoma discussed - Encouraged sunscreen and sun protective behaviors PROCEDURES SHAVE BIOPSY PRODEDURE NOTE: A time-out was taken prior to the procedure to verify correct patient, correct site(s) and correct procedure. After verifying patients identification and obtaining verbal informed consent, including discussions of the risks of bleeding, infection, and scarring, the lesion(s) was cleansed with an alcohol swab then injected with 1% lidocaine with epinephrine. A Remy blade and/or Dermablade was used to shave the lesion(s). Specimen(s) was labeled and sent to pathology in formalin. Aluminum chloride was applied for chemical cauterization. Petrolatum and bandaid were applied to the biopsy site(s). Post- biopsy wound care was discussed in detail. Dr. Saavedra was available during the entire clinic visit, providing medically necessary supervision, and ready to perform any service required as the wirer street light. RTC 12 months for UBSE. Advised sooner for any tender, painful, bleeding, rapidly changing, or otherwise concerning lesions. /jeffry/ Jess Antoine MD Resident, Dermatology Signed: 10/21/2023 14:23 Receipt Acknowledged By: 10/21/2023 14:38 /jeffry/ NIYAH SAAVEDRA MD INTERNAL MEDICINE/DERMATOLOGY STAFF 10/21/2023 ADDENDUM STATUS: COMPLETED I saw and evaluated the patient. I reviewed the resident's note and agree. I was physically present during the baum portions of the procedure and available during the entire procedure as the attending surgeon, providing medically necessary supervision, and ready to perform any service required as the surgeon. /jeffry/ NIYAH SAAVEDRA MD INTERNAL MEDICINE/DERMATOLOGY STAFF Signed: 10/21/2023 14:38 10/27/2023 ADDENDUM STATUS: COMPLETED Dermatology Problem List: # hx NMSC - Nodular basal cell carcinoma, ulcerated and fragmented Right superior helix s/p shave biopsy 10/21/23 [facility] - Nodular basal cell carcinoma - Right conchal bowl s/p shave biopsy 10/21/23 [facility] # nBCC, left lateral nose, s/p biopsy 05/20/18, s/p Mohs 11/02/18 # AKs, LN2 - calciprotriene + 5FU x 5 days (10/22/23) # SK, Right Distal Forearm s/p shave biopsy 10/21/23 # Seborrheic Dermatitis - start ketoconazole shampoo TIW staffed w/ Dr. Cervantes /jeffry/ Jess Antoine MD Resident, Dermatology Signed: 10/27/2023 13:16 JESS ANTOINE [facility]
--- OUTSIDE RECORDS SUMMARY | 2024-06-02 00:44 | XMS_ITS | Encounter Summary ---
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 ([place] Address [address] [place] [address] Care Team Providers Care Protection Analyst Name Role Phone LUCIAN CED Primary Care [...] Relationship to Policy Mar [facility] [place] [facility] (WNR) MEDICARE [facility] ([facility]) Sep 29, 2019 [id number] [phone] ONI DURAN MON PATIENT [facility] [place] [facility] ([place]) MEDICARE ([place]) [facility] ([facility]) Sep 29, 2008 [id number] ONI DURAN MON PATIENT [facility] (WNR) MEDICARE ADVANTAGE [facility] ([facility]) Sep 29, 2008 [id number] [phone] [id number] ONI DURAN MON PATIENT [facility] (WNR) MEDICARE ADVANTAGE [facility] ([facility]) Sep 29, 2019 [id number] ONI DURAN PATIENT [facility] [place] [facility] ([place]) MEDICARE ADVANTAGE [facility] (WNR) Sep 29, 2010 [id number] ONI DURAN PATIENT Selected Encounter This section includes the information on record at AL for the Encounter. Date/Time Encounter Type Encounter Description Reason Pro vider Source Sep 17, 2023 11:57 AM Outpatient Encounter [facility]ITY [facility]ARE CONSULT IHE Encounter Template Text not used by AL Plan of Treatment: Future Appointments (+ 6 months) and Future Tests (+/- 45 days) The Plan of Treatment section includes future care activities for the patient from all [place] treatmentfacilities. This section includes future appointments and future orders which are active, pending or scheduled. Future Appointments This section includes appointments that were scheduled to occur 6 months from the date of the Encounter, up to a maximum of 20 appointments. The data comes from all [place] treatment facilities. Appointment Date/Time Appointment Type Appointme nt Facility Name Sep 22, 2023 10:28 AM AMBULATORY - NONE [place] [facility] Sep 30, 2023 05:00 PM AMBULATORY - NONE [place] [facility] Oct 21, 2023 01:30 PM AMBULATORY - SURGERY [place] [facility] Oct 21, 2023 02:30 PM AMBUL[place]ORY - [place]ICINE [place] [facility] Nov 03, 2023 09:30 AM [place]IC[place] [facility] Nov 03, 2023 10:00 AM AMBULATORY - [place]ICINE [place] [facility] Nov 03, 2023 10:30 AM AM[place]ORY - [place]ICINE [place] [facility] Nov 06, 2023 10:00 AM AM[place]UL[place]ORY [place]ICINE [place] [facility] Nov 06, 2023 02:00 PM AMBULATORY [place] SURGERY [place] [facility] Nov 11, 2023 01:30 PM AMBULATORY - [place]GERY [place] [facility] Nov 26, 2023 10:30 AM AMBULATORY - NONE [place] [facility] Jan 12, 2024 08:00 AM AM[place]UL[place]ORY [place]GERY [place] [facility] Jan 12, 2024 09:00 AM AMBULATORY - NONE [place] [facility] Jan 15, 2024 07:00 AM AMBULATORY - NONE [place] [facility] Jan 15, 2024 09:30 AM AMBULATORY - SURGERY [place] [facility] January 28, 2024 03:00 PM AMBULATORY - NONE [place] [facility] February 09, 2024 11:00 AM AMBULATORY - SURGERY [facility] Mar 02, 2024 12:30 PM AMBUL[place]ORY [place] [facility] Mar 04, 2024 02:00 PM AMBULATORY - SURGERY [facility] Mar 04, 2024 02:30 PM AMBULATORY - SURGERY [facility] Social History: Smoking Status (Most current) and Tobacco Use (All prior to encounter date) This section includes the most current, and the historical, smoking and tobacco- related health factors from the AL facility where the Encounter took place. Current Smoking Status This section includes the most current smoking, or tobacco-related health factor, from the AL facility where the Encounter took place. Date/Time Current Smoking Status Comment Facil ity Sep 10, 2023 03:30 PM VA-TOBACCO FORMER USER [facility] Tobacco Use History This section includes a history of the smoking, or tobacco-related health factors, that were collected on or before the date of the Encounter. The data comes from the AL facility where the Encounter took place. Date/Time Smoking Status/Tobacco Use Comment F acility Sep 10, 2023 03:30 PM VA-TOBACCO QUIT 15 YRS OR MORE [facility] Jun 13, 2020 10:00 AM VA-TOBACCO FORMER USER [facility] Jun 13, 2020 10:00 AM VA-TOBACCO QUIT 15 YRS OR MORE [facility] May 20, 2019 12:18 PM VA-TOBACCO FORMER USER [facility] May 20, 2019 12:18 PM VA-TOBACCO QUIT 15 YRS OR MORE [facility] Jul 30, 2018 08:31 AM VA-TOBACCO FORMER USER [facility] Jul 30, 2018 08:31 AM VA-TOBACCO QUIT 15 YRS OR MORE [facility] Aug 25, 2017 08:04 AM FORMER TOBACCO USER 7Y OR GREATE R [facility] Nov 08, 2016 08:12 AM FORMER TOBACCO USER 7Y OR GREATE R [facility] Nov 29, 2015 12:46 PM FORMER TOBACCO USER 7Y OR GREATE R [facility] February 23, 2015 12:57 PM FORMER TOBACCO USER 7Y OR GREATE R [facility] January 27, 2014 10:10 AM FORMER TOBACCO USER 7Y OR GREATE R [facility] Mar 17, 2007 09:11 AM FORMER TOBACCO USER 7Y OR GREATE R [facility] Advance Directives: All historical and current Section [...] Mar 17, 2007 ADVANCE DIRECTIVE ALBERTO RODRIGUE[facility] Encounter Notes: All associated encounter notes This section contains the clinical notes associated to the Encounter. Date/Time Encounter Note(s) Provider Source Oct 14, 2023 03:36 PM ADDENDUM: LOCAL TITLE: Addendum STANDARD TITLE: ADDENDUM DATE OF NOTE: OCT 14, 2023@15:36:40 ENTRY DATE: OCT 14, 2023@15:36:42 AUTHOR: MARIA DEL CARMEN BREAUX COSIGNER: URGENCY: STATUS: COMPLETED Co-managed care has attempted multiple times to get records regarding this prescription with no results. Notified the local provider that the [place] is not starting pt's on this medication due to shortage. Notified them that the pt is already on Ozempic and would get a prescription on a month to month basis. They would send a new prescription for an increase in Ozempic or a different medication. After multiple attempts no response was received. Alerting to the pact team for follow up. Rx scanned to [facility] [facility]. [facility] [place] proceed with further processing for this reason. /jeffry/ MARIA DEL CARMEN BREAUX LPN Co-Manufacturing Project Manager Signed: 10/14/2023 15:40 Receipt Acknowledged By: 10/14/2023 16:08 /jeffry/ Ced Cline D.O. Staff Physician 10/17/2023 12:15 /jeffry/ JACQUI DE LA GARZA RN REGISTERED NURSE --- Original Document --- 09/17/23 PHARMACY NON VA CARE MEDICATIONS: The [facility] Outpatient [facility] RECEIVED electronic prescription(s) faxed from a NON-VA Provider: ANTONIA JOAQUIN ADJUDICATION SPECIALIST Regarding Patient: BETH DURAN Date of : Jun Regarding PRESCRIPTION(s) written on 09/15/2023 for: Medication(s): TRULICITY 0.75MG The Non-VA provider is not authorized to write prescription(s) through the [facility] pharmacy. The Prescription request has been redirected via FAX to [facility]. /jeffry/ LAURA UMANZOR pharmacy clinical specialist Signed: 09/17/2023 11:59 09/17/2023 ADDENDUM STATUS: COMPLETED [place] is requesting to pickling grader TRULICITY 0.75MG [place] would like a call [phone] /jeffry/ [facility] Signed: 09/17/2023 15:47 Receipt Acknowledged By: 09/24/2023 11:52 /jeffry/ JACQUI DE LA GARZA RN REGISTERED NURSE 09/24/2023 ADDENDUM STATUS: COMPLETED Soil Scientist reached out to co-managed care [employer] [facility] and they stated they haven't looked at it yet and it will likely be today or tomorrow LVM to pt spouse at provided number updating her on co-managed care process. /jeffry/ JACQUI DE LA GARZA RN REGISTERED NURSE Signed: 09/24/2023 11:55 09/24/2023 ADDENDUM STATUS: COMPLETED pt spouse reports that she already picked up the medication and was actually referring to the semaglutide vs dulaglutide (trulicity) /jeffry/ JACQUI DE LA GARZA RN REGISTERED NURSE Signed: 09/24/2023 12:02 09/25/2023 ADDENDUM STATUS: [facility] is not allowing new starts for Trulicity, due to shortage. Pt is already getting Ozempic and this can be increased if needed. Fax sent to the local provider regarding this information. Alerting the pact rn for fyi. /jeffry/ MARIA DEL CARMEN BREAUX LPN Co-Manufacturing Project Manager Signed: 09/25/2023 08:51 Receipt Acknowledged By: 09/25/2023 11:10 /zhanna DE LA GARZA RN REGISTERED NURSE MARIA DEL CARMEN BREAUX [facility] Sep 25, 2023 08:49 AM ADDENDUM: LOCAL TITLE: Addendum STANDARD TITLE: ADDENDUM DATE OF NOTE: SEP 25, 2023@08:49:30 ENTRY DATE: SEP 25, 2023@08:49:31 AUTHOR: MARIA DEL CARMEN BREAUX EXP COSIGNER: URGENCY: STATUS: [facility] is not allowing new starts for Trulicity, due to shortage. Pt is already getting Ozempic and this can be increased if needed. Fax sent to the local provider regarding this information. Alerting the pact rn for fyi. /jeffry/ MARIA DEL CARMEN BREAUX LPN Co-Manufacturing Project Manager Signed: 09/25/2023 08:51 Receipt Acknowledged By: 09/25/2023 11:10 /jeffry/ JACQUI DE LA GARZA RN REGISTERED NURSE --- Original Document --- 09/17/23 PHARMACY NON VA CARE MEDICATIONS: The [facility] RECEIVED electronic prescription(s) faxed from a NON-VA Provider: ANTONIA JOAQUIN ADJUDICATION SPECIALIST Regarding Patient: BETH DURAN Date of : Jun Regarding PRESCRIPTION(s) written on 09/15/2023 for: Medication(s): TRULICITY 0.75MG The Non-VA provider is not authorized to write prescription(s) through the [facility] pharmacy. The Prescription request has been redirected via FAX to [facility]. /jeffry/ LAURA UMANZOR pharmacy clinical specialist Signed: 09/17/2023 11:59 09/17/2023 ADDENDUM STATUS: COMPLETED [place] is requesting to pickling grader TRULICITY 0.75MG [place] would like a call [phone] /jeffry/ MAE RAY VISN23 [facility] Signed: 09/17/2023 15:47 Receipt Acknowledged By: 09/24/2023 11:52 /jeffry/ JACQUI DE LA GARZA RN REGISTERED NURSE 09/24/2023 ADDENDUM STATUS: COMPLETED Soil Scientist reached out to co-managed care [employer] and they stated they haven't looked at it yet and it will likely be today or tomorrow LVM to pt spouse at provided number updating her on co-managed care process. /zhanna DE LA GARZA RN REGISTERED NURSE Signed: 09/24/2023 11:55 09/24/2023 ADDENDUM STATUS: COMPLETED pt spouse reports that she already picked up the medication and was actually referring to the semaglutide vs dulaglutide (trulicity) /zhanna DE LA GARZA RN REGISTERED NURSE Signed: 09/24/2023 12:02 MARIA DEL CARMEN BREAUX [facility] Sep 17, 2023 03:45 PM ADDENDUM: LOCAL TITLE: Addendum STANDARD TITLE: ADDENDUM DATE OF NOTE: SEP 17, 2023@15:45:13 ENTRY DATE: SEP 17, 2023@15:45:14 AUTHOR: MAE RAY EXP COSIGNER: URGENCY: STATUS: COMPLETED [place] is requesting to pickling grader TRULICITY 0.75MG [place] would like a call [phone] /jeffry/ MAE RAY VISN23 [facility] Signed: 09/17/2023 15:47 Receipt Acknowledged By: 09/24/2023 11:52 /zhanna DE LA GARZA RN REGISTERED NURSE --- Original Document --- 09/17/23 PHARMACY NON AL CARE MEDICATIONS: The [facility] Outpatient Pharm[facility] RECEIVED electronic prescription(s) faxed from a NON-VA Provider: ANTONIA JOAQUIN NP Regarding Patient: BETH DURAN Date of : Jun Regarding PRESCRIPTION(s) written on 09/15/2023 for: Medication(s): TRULICITY 0.75MG The Non-VA provider is not authorized to write prescription(s) through the [facility] pharmacy. The Prescription request has been redirected via FAX to [facility]. /zhanna UMANZOR pharmacy clinical specialist Signed: 09/17/2023 11:59 MAE RAY [facility] Sep 17, 2023 11:57 AM PHARMACY NOTE: LOCAL TITLE: PHARMACY NON VA CARE MEDICATIONS STANDARD TITLE: PHARMACY NOTE DATE OF NOTE: SEP 17, 2023@11:57 ENTRY DATE: SEP 17, 2023@11:58 AUTHOR: LAURA UMANZOR EXP COSIGNER: URGENCY: STATUS: COMPLETED PHARMACY NON VA CARE MEDICATIONS Has ADDENDA The [facility] Out[facility] RECEIVED electronic prescription(s) faxed from a NON-VA Provider: ANTONIA JOAQUIN ADJUDICATION SPECIALIST Regarding Patient: BETH DURAN Date of : Jun Regarding PRESCRIPTION(s) written on 09/15/2023 for: Medication(s): TRULICITY 0.75MG The Non-VA provider is not authorized to write prescription(s) through the [facility] pharmacy. The Prescription request has been redirected via FAX to [facility]. /jeffry/ LAURA UMANZOR pharmacy clinical specialist Signed: 09/17/2023 11:59 09/17/2023 ADDENDUM STATUS: COMPLETED is requesting to pickling grader TRULICITY 0.75MG [place] would like a call [phone] /jeffry/ MAE RAY VISN23 [facility] Signed: 09/17/2023 15:47 Receipt Acknowledged By: 09/24/2023 11:52 /jeffry/ JACQUI DE LA GARZA RN REGISTERED NURSE 09/24/2023 ADDENDUM STATUS: COMPLETED Soil Scientist reached out to co-managed care [employer] and they stated they haven't looked at it yet and it will likely be today or tomorrow LVM to pt spouse at provided number updating her on co-managed care process. /jeffry/ JACQUI DE LA GARZA RN REGISTERED NURSE Signed: 09/24/2023 11:55 09/24/2023 ADDENDUM STATUS: COMPLETED pt spouse reports that she already picked up the medication and was actually referring to the semaglutide vs dulaglutide (trulicity) /jeffry/ JACQUI DE LA GARZA RN REGISTERED NURSE Signed: 09/24/2023 12:02 09/25/2023 ADDENDUM STATUS: [facility]TED [facility] due to [facility]. Pt is already getting Ozempic and this can be increased if needed. Fax sent to the local provider regarding this information. Alerting the pact rn for fyi. /zhanna BREAUX LPN Co-Manufacturing Project Manager Signed: 09/25/2023 08:51 Receipt Acknowledged By: 09/25/2023 11:10 /jeffry/ JACQUI DE LA GARZA, RN REGISTERED NURSE 10/14/2023 ADDENDUM STATUS: [facility] has attempted multiple times to get records regarding this prescription with no results. Notified the local provider that the [place] is not starting pt's on this medication due to shortage. Notified them that the pt is already on Ozempic and would get a prescription on a month to month basis. They would send a new prescription for an increase in Ozempic or a different medication. After multiple attempts no response was received. Alerting to the pact team for follow up. Rx scanned to [employer]. [facility] [place] proceed with further processing for this reason. /jeffry/ MARIA DEL CARMEN BREAUX LPN Co-Manufacturing Project Manager Signed: 10/14/2023 15:40 Receipt Acknowledged By: 10/14/2023 16:08 /jeffry/ Ced Cline D.O. Staff Physician 10/17/2023 12:15 /jeffry/ JACQUI DE LA GARZA RN REGISTERED NURSE 10/29/2023 ADDENDUM STATUS: [facility] received an order stating to disregard previous order for Trulicity. Pt is to remain on the current dose of Ozempic. Scanned and attached this order if this is needed for future use. /zhanna BREAUX LPN Co-Manufacturing Project Manager Signed: 10/29/2023 08:[address] [facility]
--- OUTSIDE RECORDS SUMMARY | 2024-06-02 00:44 | XMS_ITS | Encounter Summary ---
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 ([place] [facility] Address [address] [place] [address] Care Team Providers Care Hose Builder Name Role Phone CED EPSTEIN Primary Care [...] Relationship to Policy Mar [facility] [place] [facility] (WNR) MEDICARE ADVANTAGE [facility] ([facility]) Sep 29, 2019 [id number] [phone] ONI DURAN MON PATIENT [facility] [place] [facility] (WNR) MEDICARE (M) [facility] (R) Sep 29, 2008 [id number] ONI DURAN MON PATIENT [facility] [place] [facility] (WNR) MEDICARE ADVANTAGE [facility] (WNR) Sep 29, 2008 [id number] [phone] [id number] ONI DURAN MON PATIENT [facility] (WNR) MEDICARE ADVANTAGE [facility] ([facility]) Sep 29, 2019 [id number] ONI DURAN PATIENT [facility] (WNR) MEDICARE ADVANTAGE [facility] (WNR) Sep 29, 2010 [id number] ONI DURAN PATIENT Selected Encounter This section includes the information on record at [place] for the Encounter. Date/Time Encounter Type Encounter Description Reason Provider Source Oct 21, 2023 02:30 PM OFFICE O/P EST HI 40 MIN PRIMARY CARE/MEDICINE ICD-10-CM S42.031S Displaced fracture of lateral end of right clavicle, sequela STOCK,CED W E Encounter Template Text not used by [place] Assessments - Encounter Diagnoses This section includes the primary and secondary diagnoses documented for the Encounter. Date/Time Primary/Secondary Diagnosis Diagnosis Name Provider Source Oct 21, 2023 04:38 PM PRIMARY Displaced fracture of lateral end of right clavicle, sequela [facility] Oct 21, 2023 04:38 PM SECONDARY Multiple fractures of ribs, right side, sequela [facility] Oct 21, 2023 04:38 PM SECONDARY Type 2 diabetes mellitus with unspecified complications [facility] Oct 21, 2023 04:38 PM SECONDARY Unspecified open wound, left thigh, initial encounter [facility] Plan of Treatment: Future Appointments (+ [...] [place] treatment facilities. Appointment Date/Time Appointment Type Appointme nt Facility Name Nov 03, 2023 09:30 AM AMBULATORY - MEDICINE [facility] Nov 03, 2023 10:00 AM AMBULATORY - MEDICINE [facility] Nov 03, 2023 10:30 AM AMBULATORY - MEDICINE [facility] Nov 06, 2023 10:00 AM AMBULATORY - MEDICINE [facility] Nov 06, 2023 02:00 PM AMBULATORY - SURGERY [facility] Nov 11, 2023 01:30 PM AMBUL[place]ORY - [place]GERY [place] [facility] Nov 26, 2023 10:30 AM AMBUL[place]ORY - [place]ONE [place] [facility] Jan 12, 2024 08:00 AM AMBULATORY - SURGERY [place] [facility] Jan 12, 2024 09:00 AM AM[place]ORY [place]ONE [place] [facility] Jan 15, 2024 07:00 [facility] [place] Jan 15, 2024 09:30 AM AMBULATORY - SURGERY [place] [facility] January 28, 2024 03:00 PM AMBUL[place]ORY - NONE [place] [facility] February 09, 2024 11:00 AM AMBULATORY - [facility] [place] [facility] Mar 02, 2024 12:30 PM AMBULATORY - [place] [facility] Mar 04, 2024 02:00 PM AMBULATORY - [facility] [place] [facility] Mar 04, 2024 02:30 PM AMBULATORY - SURGERY [facility] [place] [facility] Mar 08, 2024 11:15 AM AMBUL[facility]ORY - [facility] Mar 29, 2024 02:00 PM AMBULATORY - [place]IATRY [place] [facility] Apr 19, 2024 11:15 PM [facility] Active, Pending, and Scheduled Orders This section includes a listing of several types of active, pending, and scheduled orders, including clinic medications orders, diagnostic test orders, procedure orders and consult orders; where the start date of the order is 45 days before the date of the Encounter or 45 days after the date of theEncounter. The data comes from all [place] treatment facilities. Test Date/Time Test Type Test Details Facility Name Nov 03, 2023 12:00 AM Laboratory - Chemi stry Order BASIC METABOLIC PANEL+MG PLASMA SP ONCE [facility] Lab Results: +/- 30 days of the encounter This section includes the Chemistry and Hematology Lab Results on record with [place] for the patient. Radiology Reports and Pathology Reports are provided separately, in subsequent sections. Lab Results This section contains the Chemistry/Hematology Results that were resulted 30 days before or 30 daysafter the date of the Encounter. Date/Time Source Result Type Result - Unit Interpretation Reference Range Comment Nov 03, 2023 09:16 AM [facility] HEMOGLOBIN A1C Specimen Type: BLOOD Comment: Values [...] May 22, 2023 02:36 PM Reporting Lab: [facility] [id number] Performing Lab: [facility] [id number] HEMOGLOBIN A1C 7.3 H 4.0-6.0 Vital Signs: All taken on the encounter date This section contains inpatient and outpatient Vital Signs collected on the date of the Encounter. Date/Time Temperature Pulse Blood Pressure Respiratory Rate SP02 Pain Height Weight Body Mass Index Source Oct 21, 2023 02:36 PM 98.5 F 73 /min 138/73 mm[Hg] 18 /min 97 % 0 [facility] Social History: Smoking Status (Most current) and Tobacco Use (All prior to encounter date) This section includes the most current, and the historical, smoking and tobacco- related health factors from the [place] facility where the Encounter took place. Current Smoking Status This section includes the most current smoking, or tobacco-related health factor, from the [place] facility where the Encounter took place. Date/Time Current Smoking Status Comment Facil ity Sep 10, 2023 03:30 PM VA-TOBACCO QUIT 15 YRS OR MORE [facility] Tobacco Use History This section includes a history of the smoking, or tobacco-related health factors, that were collected on or before the date of the Encounter. The data comes from the [place] facility where the Encounter took place. Date/Time Smoking Status/Tobacco Use Comment F acility Sep 10, 2023 03:30 PM VA-TOBACCO QUIT 15 YRS OR MORE [facility] Jun 13, 2020 10:00 AM VA-TOBACCO FORMER USER [facility] Jun 13, 2020 10:00 AM VA-TOBACCO QUIT 15 YRS OR MORE [facility] May 20, 2019 12:18 PM VA-TOBACCO FORMER USER [facility] May 20, 2019 12:18 PM VA-TOBACCO QUIT 15 YRS OR MORE [facility] Jul 30, 2018 08:31 AM VA-TOBACCO FORMER USER [facility] Jul 30, 2018 08:31 AM VA-TOBACCO QUIT 15 YRS OR MORE [facility] Aug 25, 2017 08:04 AM FORMER TOBACCO USER 7Y OR GREATE R [facility] Nov 08, 2016 08:12 AM FORMER TOBACCO USER 7Y OR SERA Nguyen [facility] Nov 29, 2015 12:46 PM FORMER TOBACCO USER 7Y OR SERA Nguyen [facility] February 23, 2015 12:57 PM FORMER TOBACCO USER 7Y OR SERA R [facility] January 27, 2014 10:10 AM FORMER TOBACCO USER 7Y OR SERA R [facility] Mar 17, 2007 09:11 AM FORMER TOBACCO USER 7Y OR SERA Nguyen [facility] Advance Directives: All historical and current Section Date Range: From patient's date of to the date document was created. This section includes ALL of a patient's completed or amended [place] Advance and Rescinded Directives. The entries below indicate that a directive exists for the patient, but an actual copy is not included with this document. The data comes from all [place] facilities. Date Advance Directives Provider Source Mar 17, 2007 ADVANCE DIRECTIVE ALBERTO RODRIGUEZ [facility] Pathology Reports: +/- 30 days of the [...] the Encounter. The data comes from all [place] treatment facilities. Date/Time Pathology Report Provider Source Oct 24, 2023 01:05 PM LR SURGICAL PATHOL OGY REPORT: LOCAL TITLE: LR SURGICAL PATHOLOGY REPORT STANDARD TITLE: PATHOLOGY REPORT DATE OF NOTE: OCT 24, 2023@13:05:29 ENTRY DATE: OCT 24, 2023@13:05:29 AUTHOR: JANE DE LA VEGA EXP COSIGNER: URGENCY: STATUS: COMPLETED $APHDR Reporting Lab: [facility] [CLIA# [id number]] [place] [address] - - - - - - - [...] - - - - $TEXT Submitted by: STEF ANTOINE Date obtained: Oct 21, 2023 - [...] - - - - POSTOPERATIVE DIAGNOSIS: Surgeon/physician: STEF ANTOINE =-=-=-=-=-=-=-=-=-=-=-=-=- =-=-=-=-=-=-=-=-=-=-=-=-=- =-=-=-=-=-=-=-=-=-=-=-=-=- = - - [...] VEGA STAFF PATHOLOGIST, PATHOLOGY & LABORATORY MED [facility] Signed Oct 24, 2023@13:05 Performing Laboratory: Surgical Pathology Report Performed By: [facility] [CLIA# [id number]] [place] [address] $FTR - - - - - - [...] - - BETH DURAN STANDARD FORM 515 ID:[id number] SEX:M :1945 AGE: 78 LOC:[id number] PCP: Ced Epstein MD /jeffry/ JANE DE LA VEGA STAFF PATHOLOGIST, PATHOLOGY & LABORATORY MED [facility] Signed: 10/24/2023 13:05 JANE DE LA VEGA [facility] Encounter Notes: All associated encounter notes This section contains the clinical notes associated to the Encounter. Date/Time Encounter Note(s) Provider Source Oct 21, 2023 02:41 PM INTERNAL MEDICINE NOTE: LOCAL TITLE: MEDICINE CLINIC NOTE STANDARD TITLE: INTERNAL MEDICINE NOTE DATE OF NOTE: OCT 21, 2023@14:41 ENTRY DATE: OCT 21, 2023@14:41:06 AUTHOR: CED EPSTEIN EXP COSIGNER: URGENCY: STATUS: COMPLETED MEDICINE CLINIC NOTE Has ADDENDA Nurse's notes reviewed from today. BETH DURAN is a 78 year old MALE with the following Chief complaint: Hospital follow-up HPI/ROS: Pt is an 78 yo male with PMH of CVA (right sided hemiparesis), CAD, HTN, HL, Type II DM, CHF, Asthma, Depression, Bladder cancer (followed by outside Urology), who presents today for hospital follow up. Had a fall trying to transfer from chair to walker. Presented to ED in hospital [facility], found to have non-displaced fratures of posterior ribs 1-5 on the right side as well as displaced distal clavicle fracture on the right as well. Was recommended to transfer to higher acuity trauma hospital but pt declined, choosing for comfort measures only. Admitted from 09/21 - 09/24. He was discharged home with lidocaine patches, tylenol, and oxycodone for pain control. Says he has felt back to normal for the last 4-5 days, not requiring anything for pain control at all in that time. Breathing is normal. Pt's asking about the constant shortage of Semaglutide. Sometimes they call for refill and available and sometimes it's not - confirmed with pharmacy operations manager that this is indeed the case with that medication for the foreseeable future. Has f/u with Endo on 11/06 and would like to discuss going off of it due the frustration of it not being consistently refillable. Also has superficial wound on left upper posterior thigh. Assisted living has been putting bandages on it, which pt says hurt some. Active problems - Computerized Problem List is the source for the followin. Hypertension (SNOMED CT 36839064) 2. Hyperlipidemia (SNOMED CT 05314818) 3. Tinnitus * 4. 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 Asthma (SNOMED CT 770831676) 6. Diabetic retinopathy (SNOMED CT 8294998) 7. Type 2 diabetes mellitus (SNOMED CT 26190266) 8. Umbilical hernia (SNOMED CT 488169884) 9. Obstructive sleep apnea (SNOMED CT 44343610) 10. Obesity * - 10 TOPIC GRAD 07-09-2012* 244.0 --> 09-17-12* 243.2 lbs 11. Anemia 12. Rosacea 13. Carcinoma of bladder - Followed by outside Urology. 14. Depression ([facility] [id number]) - prescribed by [facility] for depression 15. Congestive heart failure 16. CVA - Cerebrovascular accident - 11/2020, outside hospital. - Right sided hemiparesis 17. Dysphagia as a late effect of cerebrovascular accident 18. Long-term current use of anticoagulant 19. Exposure to Agent [place] Allergies: PENICILLIN (Mar 17, 2007) SULFA DRUGS [...] EVERY 6 HOURS NEEDED FOR PAIN 18) LIDOCAINE 5% PATCH APPLY 1 PATCH TOPICALLY EVERY DAY ACTIVE NEEDED FOR UP TO 12 HOURS FOR PAIN REMOVE AFTER 12 HOURS. MAX 1 PATCH PER 24 HOURS. 19) LOSARTAN 25MG TAB TAKE ONE TABLET BY MOUTH EVERY DAY ACTIVE FOR BLOOD PRESSURE 20) MELATONIN 3MG CAP/TAB TAKE 1 TABLET BY MOUTH AT ACTIVE BEDTIME FOR SLEEP 21) NEEDLE,PEN 31G,8MM USE 1 NEEDLE UNDER THE SKIN ACTIVE DIRECTED *DISPOSE OF IN A HARD-PLASTIC CONTAINER WITH A SCREW-ON LID CONTACT GARBAGE HAULER FOR PROPER DISPOSAL 22) OMEPRAZOLE 20MG EC CAP TAKE ONE CAPSULE BY MOUTH ACTIVE EVERY DAY FOR STOMACH ACID 23) OXYCODONE 5MG TAB TAKE ONE TABLET BY MOUTH EVERY 6 ACTIVE HOURS NEEDED FOR PAIN 24) POISE PAD,ULTIMATE ABSORB EXTRA COVERAGE USE PAD ACTIVE TOPICALLY THREE TIMES A DAY NEEDED FOR URINARY INCONTINENCE 25) POLYETHYLENE GLYCOL 3350 ORAL PWDR TAKE 17 GRAMS BY ACTIVE MOUTH EVERY DAY NEEDED FOR CONSTIPATION MIX IN 8 OUNCES OF LIQUID 26) SEMAGLUTIDE 1MG/0.75ML INJ PEN 3ML INJECT 1MG UNDER ACTIVE THE SKIN EVERY WEEK FOR DIABETES 27) SENNOSIDES 8.6MG TAB TAKE TWO TABLETS BY MOUTH EVERY ACTIVE DAY NEEDED FOR CONSTIPATION 28) TORSEMIDE 10MG TAB TAKE ONE TABLET BY MOUTH EVERY DAY ACTIVE FOR EXCESS FLUID 29) TRAZODONE HCL 50MG TAB TAKE ONE TABLET BY MOUTH AT ACTIVE BEDTIME FOR SLEEP 30) ZINC OXIDE 20% OINT APPLY SMALL AMOUNT TOPICALLY ACTIVE THREE TIMES A DAY NEEDED FOR SKIN PROTECTION APPLY A THIN LAYER TO AFFECTED PERINEAL AREAS TOPICALLY 2-3 TIMES DAILY NEEDED. MAY DAB AND REAPPLY. DO NOT WIPE COMPLETELY OFF SKIN FOR EACH APPLICATION. Pending Outpatient Medications Status 1) CALCIPOTRIENE 0.005% TOP CREAM APPLY THIN LAYER PENDING TOPICALLY TWICE A DAY 2) FLUOROURACIL 5% CREAM APPLY TO AFFECTED AREA PENDING TOPICALLY TWICE A DAY 3) KETOCONAZOLE SHAMPOO SHAMPOO SCALP TOPICALLY 3 TIMES PENDING WEEKLY EXAM: VS: Temp: 98.5 F [36.9 C] (10/21/2023 14:36) BP: 138/73 (10/21/2023 14:36) Pulse:73 (10/21/2023 14:36) Resp: 18 (10/21/2023 14:36) Pain: 0 (10/21/2023 14:36) Weight: WEIGHTS IN LAST 6 MONTHS: Unavailable (MAY 22, 2023@08:55:21) Gen: alert, in no acute distress, current vital signs reviewed Resp: no respiratory distress, normal rate and effort, no accessory muscle use, breath sounds clear to auscultation bilaterally, no wheezing or rhonchi CV: HRRR, normal S1/S2, no murmur Msk: no ttp over right clavicle or right ribs, no tenting of skin over clavicle Psych: alert and awake, mood and affect appropriate, judgement not impaired Skin: upper left posterior thigh has a 2-3 mm superficial wound with small amount of bleeding, no surrounding erythema, minimal tenderness to palpation; no other ulcers noted Assessment and Plan: 1. Hospital f/u for right clavicle and rib fractures Pt doing well, not having any more pain or requiring any further pain medication. Exam is unremarkable. Breathing normally. Vitals are good. No further follow up as pt's priority was comfort and he has achieved that. 2. Type II DM Has been frustrated with refilling Semaglutide, will discuss with Endo about stopping or switching to something different at upcoming appointment. 3. Superficial wound Left upper posterior thigh. Will treat with mepilex daily x 1 month with barrier cream BID. Pact RN to call assisted living with directions. Pt and voiced understanding and agreement with plan. All questions answered. 40-54 minutes spent reviewing records, examining patient, and documenting findings. /jeffry/ Ced Epstein D.O. Staff Physician Signed: 10/21/2023 16:38 10/22/2023 ADDENDUM STATUS: COMPLETED left detail VM with Lenny HAGER at assisted living facility ([phone] providing verbal order for daily meplex change and BID barrier cream application to groin/buttocks area to prevent further skin breakdown /es/ JACQUI DE LA GARZA, RN REGISTERED NURSE Signed: 10/22/2023 08:03 LUCIANCED Leyla [facility] Oct 21, 2023 02:37 PM INTERNAL MEDICINE OUTPATIENT NOTE: LOCAL TITLE: MEDICINE CLINIC NURSING NOTE STANDARD TITLE: INTERNAL MEDICINE OUTPATIENT NOTE DATE OF NOTE: OCT 21, 2023@14:37 ENTRY DATE: OCT 21, 2023@14:38:04 AUTHOR: LIZZIE CARROLL EXP COSIGNER: URGENCY: STATUS: COMPLETED TYPE OF VISIT: Appointment Check In Type of appointment: In-person appointment REASON FOR VISIT: Medication issue ALLERGIES: PENICILLIN (Mar 17, 2007) SULFA DRUGS (Mar 17, 2007) DOXYCYCLINE (Jul 11, 2010) LISINOPRIL (Jul 22, 2011) AMLODIPINE (Nov 19, 2017) VITAL SIGNS: Blood Pressure: 138/73 (10/21/2023 14:36) Pulse: 73 (10/21/2023 14:36) Respiration: 18 (10/21/2023 14:36) Temperature: 98.5 F [36.9 C] (10/21/2023 14:36) Weight: Unavailable (05/22/2023 08:55) Height: Unavailable (05/22/2023 08:55) BMI: BMI not available without height O2 Sat: 97% (10/21/2023 14:36) Pain: 0 (10/21/2023 14:36) PAIN SCREEN: Patient is not having significant pain that they wish to discuss with their provider today. /jeffry/ LIZZIE CARROLL LPN LPN Signed: 10/21/2023 14:39 LIZZIE CARROLL [facility] Oct 21, 2023 02:28 PM ADVANCE DIRECTIVE: LOCAL TITLE: AD NOTIFICATION AND SCREENING STANDARD TITLE: ADVANCE DIRECTIVE DATE OF NOTE: OCT 21, 2023@14:28 ENTRY DATE: OCT 21, 2023@14:28:05 AUTHOR: XENIA KRUSE EXP COSIGNER: URGENCY: STATUS: COMPLETED ADVANCE DIRECTIVE NOTIFICATION: Patient was given written notification of the following rights: 1. Accept or refuse any medical treatment. 2. Complete a durable power of assistant prosecuting attorney for health care. 3. Complete a living will. ADVANCE DIRECTIVE SCREENING: Does patient have an Advance Directive? The patient has an Advance Directive. Does the patient wish to make any changes or revoke their current Advance Directive? No changes requested at this time. /jeffry/ XENIA KRUSE Advance Commodity Merchant Signed: 10/21/2023 14:28 XENIA KRUSE [facility]
--- OUTSIDE RECORDS SUMMARY | 2024-06-02 00:44 | XMS_ITS | Encounter Summary ---
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 ([place]) Organization [facility] Address [address] [place] [address] Care Team Providers Care Shoulder Sawyer Name Role Phone LUCIAN CED Primary Care [...] Relationship to Policy Mar [facility] [place] [facility] ([place]) MEDICARE [facility] ([facility]) Sep 29, 2019 [id number] [phone] ONI DURAN MON PATIENT [facility] [place] [facility] ([place]) MEDICARE (M) [facility] ([facility]) Sep 29, 2008 [id number] ONI DURAN MON PATIENT [facility] [place] [facility] ([place]) MEDICARE ADVANTAGE [facility] (R) Sep 29, 2008 [id number] [phone] ONI DURAN MON PATIENT [facility] (WNR) MEDICARE ADVANTAGE [facility] ([facility]) Sep 29, 2019 [id number] ONI DURAN PATIENT [facility] [place] [facility] (WNR) MEDICARE ADVANTAGE [facility] (WNR) Sep 29, 2010 [id number] 42 ONI DURAN PATIENT Selected Encounter This section includes the information on record at SD for the Encounter. Date/Time Encounter Type Encounter Description Reason Pro vider Source Oct 03, 2023 09:51 AM Outpatient Encounter [facility] CONSULT IHE Encounter Template Text not used by SD Plan of Treatment: Future Appointments (+ 6 months) and Future Tests (+/- 45 days) The Plan of Treatment section includes future care activities for the patient from all [place] treatmentfacilities. This section includes future appointments and future orders which are active, pending or scheduled. Future Appointments This section includes appointments that were scheduled to occur 6 months from the date of the Encounter, up to a maximum of 20 appointments. The data comes from all [place] treatment facilities. Appointment Date/Time Appointment Type Appointme nt Facility Name Oct 21, 2023 01:30 PM AMBULATORY [place] [facility] Oct 21, 2023 02:30 PM [place] [facility] Nov 03, 2023 09:30 AM [facility] Nov 03, 2023 10:00 AM [facility] [place] Nov 03, 2023 10:30 AM [facility] Nov 06, 2023 10:00 AM [facility] Nov 06, 2023 02:00 PM [facility] [place] [facility] Nov 11, 2023 01:30 PM [place] [facility] Nov 26, 2023 10:30 AM [place] [facility] Jan 12, 2024 08:00 AM AM[place]UL[place]ORY [place] [facility] Jan 12, 2024 09:00 AM [place] [facility] Jan 15, 2024 07:00 AM [place] [facility] Jan 15, 2024 09:30 AM [place]ORY [place] [facility] January 28, 2024 03:00 PM [place]ORY [place]ONE [place] [facility] February 09, 2024 11:00 AM AMBULATORY - [place]GERY [place] [facility] Mar 02, 2024 12:30 PM [facility] Mar 04, 2024 02:00 PM AMBULATORY - SURGERY [facility] Mar 04, 2024 02:30 PM AMBULATORY - SURGERY [facility] Mar 08, 2024 11:15 AM AMBULATORY - SURGERY [facility] Mar 29, 2024 02:00 PM AMBULATORY - PSYCHIATRY [facility] Active, Pending, and Scheduled Orders This section includes a listing of several types of active, pending, and scheduled orders, including clinic medications orders, diagnostic test orders, procedure orders and consult orders; where the start date of the order is 45 days before the date of the Encounter or 45 days after the date of theEncounter. The data comes from all SD treatment facilities. Test Date/Time Test Type Test Details Facility Name Nov 03, 2023 12:00 AM Laboratory - Chemi stry Order BASIC METABOLIC PANEL+MG PLASMA SP ONCE [facility] Social History: Smoking Status (Most current) and Tobacco Use (All prior to encounter date) This section includes the most current, and the historical, smoking and tobacco- related health factors from the SD facility where the Encounter took place. Current Smoking Status This section includes the most current smoking, or tobacco-related health factor, from the SD facility where the Encounter took place. Date/Time Current Smoking Status Comment Facil ity Sep 10, 2023 03:30 PM VA-TOBACCO FORMER USER [facility] Tobacco Use History This section includes a history of the smoking, or tobacco-related health factors, that were collected on or before the date of the Encounter. The data comes from the SD facility where the Encounter took place. Date/Time Smoking Status/Tobacco Use Comment F acility Sep 10, 2023 03:30 PM VA-TOBACCO QUIT 15 YRS OR MORE [facility] Jun 13, 2020 10:00 AM VA-TOBACCO FORMER USER [facility] Jun 13, 2020 10:00 AM VA-TOBACCO QUIT 15 YRS OR MORE [facility] May 20, 2019 12:18 PM VA-TOBACCO FORMER USER [facility] May 20, 2019 12:18 PM VA-TOBACCO QUIT 15 YRS OR MORE [facility] Jul 30, 2018 08:31 AM VA-TOBACCO FORMER USER [facility] Jul 30, 2018 08:31 AM VA-TOBACCO QUIT 15 YRS OR MORE [facility] Aug 25, 2017 08:04 AM FORMER TOBACCO USER 7Y OR GREATE R [facility] Nov 08, 2016 08:12 AM FORMER TOBACCO USER 7Y OR GREATE R [facility] Nov 29, 2015 12:46 PM FORMER TOBACCO USER 7Y OR GREATE R [facility] February 23, 2015 12:57 PM FORMER TOBACCO USER 7Y OR GREATE R [facility] January 27, 2014 10:10 AM FORMER TOBACCO USER 7Y OR GREATE R [facility] Mar 17, 2007 09:11 AM FORMER TOBACCO USER 7Y OR GREATE R [facility] Advance Directives: All historical and current Section Date Range: From patient's date of to the date document was created. This section includes ALL of a patient's completed or amended [place] Advance and Rescinded Directives. The entries below indicate that a directive exists for the patient, but an actual copy is not included with this document. The data comes from all [place] facilities. Date Advance Directives Provider Source Mar 17, 2007 ADVANCE DIRECTIVE ALBERTO RODRIGUEZ [facility] Pathology Reports: +/- 30 days [...] the Encounter. The data comes from all [place] treatment facilities. Date/Time Pathology Report Provider Source Oct 24, 2023 01:05 PM LR SURGICAL PATHOL OGY REPORT: LOCAL TITLE: LR SURGICAL PATHOLOGY REPORT STANDARD TITLE: PATHOLOGY REPORT DATE OF NOTE: OCT 24, 2023@13:05:29 ENTRY DATE: OCT 24, 2023@13:05:29 AUTHOR: JANE DE LA VEGA EXP COSIGNER: URGENCY: STATUS: COMPLETED $APHDR Reporting Lab: [facility] [CLIA# [id number]] [place] [address] - - - - - - - [...] VEGA STAFF PATHOLOGIST, PATHOLOGY & LABORATORY MED [facility] [place] Signed Oct 24, 2023@13:05 Performing Laboratory: Surgical Pathology Report Performed By: [facility] [IMELDA# [id number]] [place] [address] $FTR - - - - - - [...] - - BETH DURAN STANDARD FORM 515 ID:[id number] SEX:M :1945 AGE: 78 LOC:[id number] PCP: Ced Cline MD /jeffry/ JANE DE LA VEGA STAFF PATHOLOGIST, PATHOLOGY & LABORATORY MED [facility] Signed: 10/24/2023 13:05 JANE DE LA VEGA [facility] Encounter Notes: All associated encounter notes This section contains the clinical notes associated to the Encounter. Date/Time Encounter Note(s) Provider Source Oct 03, 2023 09:51 AM PHARMACY NOTE: LOCAL TITLE: PHARMACY NON [place] CARE MEDICATIONS STANDARD TITLE: PHARMACY NOTE DATE OF NOTE: OCT 03, 2023@09:51 ENTRY DATE: OCT 03, 2023@09:51:11 AUTHOR: LAURA UMANZOR EXP COSIGNER: URGENCY: STATUS: COMPLETED The [facility] Outpatient [facility] RECEIVED electronic prescription(s) faxed from a NON-SD Provider: ANTONIA JOAQUIN METER MAINTENANCE PERSON Regarding Patient: BETH DURAN Date of : Jun Regarding PRESCRIPTION(s) written on 09/26/2023 for: Medication(s): SENNA 8.6MG The Non-VA provider is not authorized to write prescription(s) through the [facility] pharmacy. The Prescription request has been redirected via FAX to [facility]. /jeffry/ LAURA UMANZOR vice president pharmacy Signed: 10/03/2023 09:52 LAURA UMANZOR [facility]
--- OUTSIDE RECORDS SUMMARY | 2024-06-02 00:45 | XMS_ITS | Encounter Summary ---
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 Name Role Phone LUCIAN CED Primary Care [...] Relationship to Policy Mar [facility] [place] [facility] ([place]NR) MEDICARE ADVANTAGE [facility] (R) Sep 29, 2019 [id number] ONI DURAN MON PATIENT [facility] [place] [facility] (WNR) MEDICARE (M) [facility] (R) Sep 29, 2008 [id number] ONI DURAN MON PATIENT [facility] [place] [facility] (WNR) MEDICARE ADVANTAGE [facility] (WNR) Sep 29, 2008 [id number] 1100 ONI DURAN MON PATIENT [facility] (WNR) MEDICARE ADVANTAGE [facility] (WNR) Sep 29, 2019 [id number] ONI DURAN PATIENT [facility] (WNR) MEDICARE ADVANTAGE [facility] (WNR) Sep 29, 2010 [id number] 42 ONI DURAN PATIENT Selected Encounter This section includes the information on record at SD for the Encounter. Date/Time Encounter Type Encounter Description Reason Provider Source Mar 04, 2024 02:30 PM OFF/OP EST JANUARY X REQ PHY/QHP AUDIOLOGY ICD-10-CM H61.23 Impacted cerumen, bilateral JACOB,CARINA R IHE Encounter Template Text not used by SD Assessments - Encounter Diagnoses This section includes the primary and secondary diagnoses documented for the Encounter. Date/Time Primary/Secondary Diagnosis Diagnosis Name Provider Source Mar 04, 2024 04:14 PM PRIMARY Impacted cerumen, bilateral RUHR,CHAPO A [facility] Plan of Treatment: Future Appointments [...] Date/Time Appointment Type Appointme nt Facility Name Mar 08, 2024 11:15 AM AM[place]ULATORY - [place]GERY [place] [facility] Mar 29, 2024 02:00 PM AM[place]UL[place]ORY [place] [facility] Apr 19, 2024 11:15 PM [place] - NONE [place] [facility] Apr 28, 2024 02:30 PM [place]UL[place]ORY - [place]ICINE [place] [facility] May 11, 2024 12:42 PM AMBUL[place]ORY - [place]ICINE [place] [facility] May 11, 2024 05:00 PM [place]ORY - NONE [place] [facility] May 14, 2024 04:50 PM [facility] Active, Pending, and Scheduled Orders This [...] Date/Time Test Type Test Details Facility Name Apr 05, 2024 12:00 AM Laboratory - Chemi stry Order AST/SGOT PLASMA SP [facility] Apr 05, 2024 12:00 AM Laboratory - Chemi stry Order ALT/SGPT PLASMA SP [facility] Apr 05, 2024 12:00 AM Laboratory - Chemi stry Order CBC BLOOD SP ONCE [facility] Apr 05, 2024 12:00 AM Laboratory - Chemi stry Order BASIC METABOLIC PANEL+MG PLASMA SP [facility] Social History: Smoking Status (Most [...] Mar 17, 2007 ADVANCE DIRECTIVE ROWENAALBERTO SHEARER [facility] Pathology Reports: +/- 30 days of the [...] treatment facilities. Date/Time Pathology Report Provider Source Mar 08, 2024 03:56 PM LR SURGICAL PATHOL OGY REPORT: LOCAL TITLE: LR SURGICAL PATHOLOGY REPORT STANDARD TITLE: PATHOLOGY REPORT DATE OF NOTE: MAR 08, 2024@15:56:47 ENTRY DATE: MAR 08, 2024@15:56:47 AUTHOR: FELIPE CABRERA EXP COSIGNER: URGENCY: STATUS: COMPLETED $APHDR Reporting Lab: [facility] [CLIA# [id number]] [email or web address] [address] - - - - - - - [...] - PATHOLOGY REPORT Accession No. [id number] - - - - - - - - - - - - - - - - - - - - - - - - - - - - - - - - - - - - - - - - $TEXT Submitted by: SCARLET TARIQ Date obtained: Mar 04, 2024 - - - - - - - - - - - - - - - - - - - - - - - - - - - - - - - - - - - - - - - - Specimen (Received Mar 05, 2024 08:18): RT.PREAURICULAR CHEEK SHAVE - - - - - - - - - - - - - - - - - - - - - - - - - - - - - - - - - - - - - - - - BRIEF CLINICAL HISTORY: Procedure: shave biopsy - - - - - - - - - - - - - - - - - - - - - - - - - - - - - - - - - - - - - - - - PREOPERATIVE DIAGNOSIS: R/O NMSC - - - - - - - [...] - - - - POSTOPERATIVE DIAGNOSIS: Surgeon/physician: SCARLET TARIQ =-=-=-=-=-=-=-=-=-=-=-=-=- =-=-=-=-=-=-=-=-=-=-=-=-=- =-=-=-=-=-=-=-=-=-=-=-=-=- = - - - - - - - - - - - - - - - - - - - - - - - - - - - - - - - - - - - - - - - - PATHOLOGY REPORT Accession No. [id number] - - - - - - - - - - - - - - - - - - - - - - - - - - - - - - - - - - - - - - - - GROSS DESCRIPTION: The requisition form and specimen(s) identification is confirmed. The specimen is received in formalin labeled right preauricular cheek and consists of a shave biopsy of a samson verrucous nodule measuring 1.0 x 0.9 x 0.2 cm. The specimen is inked. CE. (Coleman)Kiran MICROSCOPIC DESCRIPTION: Microscopic examination performed. [facility]. Diagnosis: Skin, Right preauricular cheek shave, biopsy-- - Sebaceous adenoma. /jeffry/ FELIPE CABRERA STAFF PATHOLOGIST Signed Mar 08, 2024@15:56 Performing Laboratory: Surgical Pathology Report Performed By: [facility] [CLIA# [id number]] [place] [address] $FTR - - - - - - - - - - - - - - - - - - - - - - - - - - - - - - - - - - - - - - - - (End of report) FELIPE CABRERA MD [facility] Date Mar 05, 2024 - - - - - - - - - - - - - - - - - - - - - - - - - - - - - - - - - - - - - - - - BETH DURAN STANDARD FORM 515 ID:[id number] SEX:M :1945 AGE: 78 LOC:1068 PCP: Ced Cline MD /jeffry/ FELIPE CABRERA STAFF PATHOLOGIST Signed: 03/08/2024 15:56 FELIPE CABRERA [facility] February 09, 2024 01:57 PM LR SURGICAL PATHOL OGY REPORT: LOCAL TITLE: LR SURGICAL PATHOLOGY REPORT STANDARD TITLE: PATHOLOGY REPORT DATE OF NOTE: FEBRUARY 09, 2024@13:57:21 ENTRY DATE: FEBRUARY 09, 2024@13:57:21 AUTHOR: ADDY HENRIQUEZ COSIGNER: URGENCY: STATUS: COMPLETED $APHDR Reporting Lab: [facility] [CLIA# [id number]] [place] [address] - - - - - - - - - - - - - - - - - - - - - - - - - - - - - - - - - - - - - - - - MEDICAL RECORD MOHS SURG PATHOLOGY - - - - - - - - - - - - - - - - - - - - - - - - - - - - - - - - - - - - - - - - PATHOLOGY REPORT Accession No. [id number] - - - - - - - - - - - - - - - - - - - - - - - - - - - - - - - - - - - - - - - - $TEXT Submitted by: PARRISH MURDOCK Date obtained: Jan 12, 2024 00:00 - - - - - - - - - - - - - - - - - - - - - - - - - - - - - - - - - - - - - - - - Specimen (Received February 04, 2024 06:49): RIGHT CONCHAL BOWL - - - - - - - - - - - - - - - - - - - - - - - - - - - - - - - - - - - - - - - - BRIEF CLINICAL HISTORY: - - - - - - - - - - - - - - - - - - - - - - - - - - - - - - - - - - - - - - - - PREOPERATIVE DIAGNOSIS: - - - - - - - [...] - - - - POSTOPERATIVE DIAGNOSIS: Surgeon/physician: PARRISH MURDOCK MD =-=-=-=-=-=-=-=-=-=-=-=-=- =-=-=-=-=-=-=-=-=-=-=-=-=- =-=-=-=-=-=-=-=-=-=-=-=-=- = - - - - - - - - - - - - - - - - - - - - - - - - - - - - - - - - - - - - - - - - PATHOLOGY REPORT Accession No. [id number] - - - - - - - - - - - - - - - - - - - - - - - - - - - - - - - - - - - - - - - - Gross Description Patient identification and specimen is confirmed. 6 slides are prepared. Residual tissue is sent to pathology for processing and embedding into paraffin blocks for storage. Microscopic exam Slides are examined as part of Mohs procedure. Please see Mohs procedure note dated for 01/12/2024. DIAGNOSIS Skin, RIGHT CONCHAL BOWL, Mohs Micrographic surgery; Procedure note indicates all final margins are free of tumor. See procedure note in CPRS. /jeffry/ ADDY HENRIQUEZ MD STAFF PATHOLOGIST Signed February 09, 2024@13:57 Performing Laboratory: Surgical Pathology Report Performed By: [facility] [CLIA# [id number]] [place] [address] $FTR - - - - - - - - - - - - - - - - - - - - - - - - - - - - - - - - - - - - - - - - (End of report) ADDY HENRIQUEZ MD Date February 09, 2024 - - - - - - - - - - - - - - - - - - - - - - - - - - - - - - - - - - - - - - - - BETH DURAN STANDARD FORM 515 ID:[id number] SEX:M :1945 AGE: 78 LOC: PCP: Ced Cline MD /jeffry/ ADDY HENRIQUEZ MD STAFF PATHOLOGIST Signed: 02/09/2024 13:57 ADDY HENRIQUEZ [facility] February 09, 2024 01:56 PM LR SURGICAL PATHOL OGY REPORT: LOCAL TITLE: LR SURGICAL PATHOLOGY REPORT STANDARD TITLE: PATHOLOGY REPORT DATE OF NOTE: FEBRUARY 09, 2024@13:56:54 ENTRY DATE: FEBRUARY 09, 2024@13:56:54 AUTHOR: ADDY HENRIQUEZ EXP COSIGNER: URGENCY: STATUS: COMPLETED $APHDR Reporting Lab: [facility] [CLIA# [id number]] [place] [address] - - - - - - - - - - - - - - - - - - - - - - - - - - - - - - - - - - - - - - - - MEDICAL RECORD MOHS SURG PATHOLOGY - - - - - - - - - - - - - - - - - - - - - - - - - - - - - - - - - - - - - - - - PATHOLOGY REPORT Accession No. [id number] - - - - - - - - - - - - - - - - - - - - - - - - - - - - - - - - - - - - - - - - $TEXT Submitted by: PARRISH MURDOCK Date obtained: Jan 12, 2024 - - - - - - - - - - - - - - - - - - - - - - - - - - - - - - - - - - - - - - - - Specimen (Received February 04, 2024 06:47): RIGHT SUPERIOR HELIX - - - - - - - - - - - - - - - - - - - - - - - - - - - - - - - - - - - - - - - - BRIEF CLINICAL HISTORY: - - - - - - - - - - - - - - - - - - - - - - - - - - - - - - - - - - - - - - - - PREOPERATIVE DIAGNOSIS: - - - - - - - [...] - - - - POSTOPERATIVE DIAGNOSIS: Surgeon/physician: PARRISH MURDOCK MD =-=-=-=-=-=-=-=-=-=-=-=-=- =-=-=-=-=-=-=-=-=-=-=-=-=- =-=-=-=-=-=-=-=-=-=-=-=-=- = - - - - - - - - - - - - - - - - - - - - - - - - - - - - - - - - - - - - - - - - PATHOLOGY REPORT Accession No. [id number] - - - - - - - - - - - - - - - - - - - - - - - - - - - - - - - - - - - - - - - - Gross Description Patient identification and specimen is confirmed. 12 slides are prepared. Residual tissue is sent to pathology for processing and embedding into paraffin blocks for storage. Microscopic exam Slides are examined as part of Mohs procedure. Please see Mohs procedure note dated for 01/12/2024. DIAGNOSIS Skin, RIGHT SUPERIOR HELIX, Mohs Micrographic surgery; Procedure note indicates all final margins are free of tumor. See procedure note in CPRS. /jeffry/ ADDY HENRIQUEZ MD STAFF PATHOLOGIST Signed February 09, 2024@13:56 Performing Laboratory: Surgical Pathology Report Performed By: [facility] [CLIA# [id number]] [place] [address] $FTR - - - - - - - - - - - - - - - - - - - - - - - - - - - - - - - - - - - - - - - - (End of report) ADDY HENRIQUEZ MD Date February 09, 2024 - - - - - - - - - - - - - - - - - - - - - - - - - - - - - - - - - - - - - - - - BETH DURAN STANDARD FORM 515 ID:[id number] SEX:M :1945 AGE: 78 LOC: PCP: Ced Cline MD /jeffry/ ADDY HENRIQUEZ MD STAFF PATHOLOGIST Signed: 02/09/2024 13:56 ADDY HENRIQUEZ [facility] Encounter Notes: All associated encounter notes This section contains the clinical notes associated to the Encounter. Date/Time Encounter Note(s) Provider Source Mar 04, 2024 02:30 PM AUDIOLOGY NOTE: LOCAL TITLE: AUDIOLOGY CLINIC NURSING NOTE STANDARD TITLE: AUDIOLOGY NOTE DATE OF NOTE: MAR 04, 2024@14:30 ENTRY DATE: MAR 04, 2024@16:01:43 AUTHOR: CHAPO ALBARADO COSIGNER: URGENCY: STATUS: COMPLETED Reason for visit: Hearing aid repair/service. Cerumen removal. Patient reports he did not bring his CHAVEZ's with because he does not wear them. 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 Patient denies recent changes in his hearing. Effusion (drainage) in ear canals: No Recent Otalgia (pain) in ear canals: No Pruritus (itching) in ear canals: No No inner ear surgery. AD skin CA procedure, followed per Derm. Dressing intact. Currently wears hearing aids: No Cerumen Removed: Yes AD very soft impaction removed very soft impaction removed Patient tolerated procedure. Nurse Patient Education: Barriers to Learning/Special Needs:Hearing LimitationsVisual Limitations Participant(s) can repeat instructions to Continue with current ear hygiene Refrain from using cotton swabs in ears PLAN: Patient's son with. Patient will follow up with a Hearing Exam in the future as needed. Follow up in: PRN (as needed) /jeffry/ CHAPO ALBARADO LPN LICENSED PRACTICAL NURSE Signed: 03/04/2024 16:17 CHAPO ALBARADO [facility]
--- OUTSIDE RECORDS SUMMARY | 2024-06-02 00:45 | XMS_ITS | Encounter Summary ---
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 [place] [facility] [place] Address [address] [place] [address] Care Team Providers Care Afternoon Babysitter Name Role Phone LUCIAN CED Primary Care [...] MEDICARE ADVANTAGE [facility] (R) Sep 29, 2019 [id number] [phone] ONI DURAN MON PATIENT [facility] [place] [facility] (WNR) MEDICARE (M) [facility] (WNR) Sep 29, 2008 [id number] ONI DURAN MON PATIENT [facility] [place] [facility] ([place]NR) MEDICARE ADVANTAGE [facility] (WNR) Sep 29, 2008 [id number] ONI DURAN MON PATIENT UCARE [facility] (WNR) MEDICARE ADVANTAGE [facility] (WNR) Sep 29, 2019 [id number] ONI DURAN PATIENT [facility] (WNR) MEDICARE ADVANTAGE [facility] (WNR) Sep 29, 2010 [id number] ONI DURAN PATIENT Selected Encounter This section includes the information on record at [place] for the Encounter. Date/Time Encounter Type Encounter Description Reason Provider Source Mar 02, 2024 12:30 PM PSYCL/NRPSYC TST PHY/QHP EA PSYCHOLOGICAL TESTING ICD-10-CM F01.50 Vascular dementia, unsp severity, without beh/psych/mood /anx MARGGRAF,MATTH EW P IHE Encounter Template Text not used by [place] Assessments - Encounter Diagnoses This section includes the primary and secondary diagnoses documented for the Encounter. Date/Time Primary/Secondary Diagnosis Diagnosis Name Provider Source Mar 03, 2024 12:11 PM PRIMARY Vascular dementia, unsp severity, without beh/psych/mood/anx MARGGRAF,YECENIA HEW P [facility] Mar 03, 2024 12:11 PM SECONDARY Cerebral infarction, unspecified MARGGRAF,YECENIA HEW P [facility] Mar 03, 2024 12:11 PM SECONDARY Essential (primary) hypertension MARGGRAF,YECENIA HEW P [facility] Mar 03, 2024 12:11 PM SECONDARY Heart failure, unspecified MARGGRAF,YECENIA HEW P [facility] Mar 03, 2024 12:11 PM SECONDARY Hyperlipidemia, unspecified MARGGRAF,YECENIA HEW P [facility] Mar 03, 2024 12:11 PM SECONDARY Type 2 diabetes mellitus with unspecified complications MARGGRAF,YECENIA HEW P [facility] Plan of Treatment: Future Appointments (+ 6 months) and Future Tests (+/- 45 days) The Plan of Treatment section includes future care activities for the patient from all [place] treatmentfacilities. This section includes future appointments and future orders which are active, pending or scheduled. Future Appointments This section includes appointments that were scheduled to occur 6 months from the date of the Encounter, up to a maximum of 20 appointments. The data comes from all [place] [facility]. Appointment Date/Time Appointment Type Appointme nt Facility Name Mar 04, 2024 02:00 PM AMBULATORY - SURGERY [facility] Mar 04, 2024 02:30 PM AMBUL[place]ORY - [place] [facility] Mar 08, 2024 11:15 AM AMBULATORY - SURG[place] [facility] Mar 29, 2024 02:00 PM AMBULATORY - [place]CHIATRY [place] [facility] Apr 19, 2024 11:15 PM AMBULATORY - NONE [place] [facility] Apr 28, 2024 02:30 PM AMBULATORY - [place]ICINE [place] [facility] May 11, 2024 12:42 PM AMBULATORY - [place]ICINE [place] [facility] May 11, 2024 05:00 PM AMBULATORY - NONE [place] [facility] May 14, 2024 04:50 [facility] Active, Pending, and Scheduled Orders This section includes a listing of several types of active, pending, and scheduled orders, including clinic medications orders, diagnostic test orders, procedure orders and consult orders; where the start date of the order is 45 days before the date of the Encounter or 45 days after the date of theEncounter. The data comes from all [facility] facilities. Test Date/Time Test Type Test Details Facility Name Apr 05, 2024 12:00 AM Laboratory - Chemi stry Order AST/SGOT PLASMA SP [facility] Apr 05, 2024 12:00 AM Laboratory - Chemi stry Order ALT/SGPT PLASMA SP [facility] Apr 05, 2024 12:00 AM Laboratory - Chemi stry Order CBC BLOOD SP ONCE [facility] Apr 05, 2024 12:00 AM Laboratory - Chemi stry Order BASIC METABOLIC PANEL+MG PLASMA SP [facility] Social History: Smoking Status (Most current) and Tobacco Use (All prior to encounter date) This section includes the most current, and the historical, smoking and tobacco- related health factors from the [place] facility where the Encounter took place. Current Smoking Status This section includes the most current smoking, or tobacco-related health factor, from the [place] facility where the Encounter took place. Date/Time Current Smoking Status Comment Facil ity Sep 10, 2023 03:30 PM [place]-TOBACCO QUIT 15 YRS OR MORE [facility] Tobacco Use History This section includes a history of the smoking, or tobacco-related health factors, that were collected on or before the date of the Encounter. The data comes from the [place] facility where the Encounter took place. Date/Time Smoking Status/Tobacco Use Comment F acility Sep 10, 2023 03:30 PM [place]-TOBACCO QUIT 15 YRS OR MORE [facility] Jun 13, 2020 10:00 AM [place]-TOBACCO FORMER USER [facility] Jun 13, 2020 10:00 AM VA-TOBACCO QUIT 15 YRS OR MORE [facility] May 20, 2019 12:18 PM VA-TOBACCO FORMER USER [facility] May 20, 2019 12:18 PM VA-TOBACCO QUIT 15 YRS OR MORE [facility] Jul 30, 2018 08:31 AM VA-TOBACCO FORMER USER [facility] Jul 30, 2018 08:31 AM VA-TOBACCO QUIT 15 YRS OR MORE [facility] Aug 25, 2017 08:04 AM FORMER TOBACCO USER 7Y OR GREATE R [facility] Nov 08, 2016 08:12 AM FORMER TOBACCO USER 7Y OR GREATE R [facility] Nov 29, 2015 12:46 PM FORMER TOBACCO USER 7Y OR GREATE R [facility] February 23, 2015 12:57 PM FORMER TOBACCO USER 7Y OR GREATE R [facility] January 27, 2014 10:10 AM FORMER TOBACCO USER 7Y OR GREATE R [facility] Mar 17, 2007 09:11 AM FORMER TOBACCO USER 7Y OR GREATE R [facility] Advance Directives: All historical and current Section Date Range: From patient's date of to the date document was created. This section includes ALL of a patient's completed or amended [place] Advance and Rescinded Directives. The entries below indicate that a directive exists for the patient, but an actual copy is not included with this document. The data comes from all [facility]. Date Advance Directives Provider Source Mar [...] the Encounter. The data comes from all [place] treatment facilities. Date/Time Pathology Report Provider Source Mar 08, 2024 03:56 PM LR SURGICAL PATHOL OGY REPORT: LOCAL TITLE: LR SURGICAL PATHOLOGY REPORT STANDARD TITLE: PATHOLOGY REPORT DATE OF NOTE: MAR 08, 2024@15:56:47 ENTRY DATE: MAR 08, 2024@15:56:47 AUTHOR: FELIPE CABRERA COSIGNER: URGENCY: STATUS: COMPLETED $APHDR Reporting Lab: [facility] [CLIA# [id number]] [place] [address] - - - - - - - [...] - - - PATHOLOGY REPORT Accession No. [id number] - - - - - [...] 0.2 cm. The specimen is inked. CE. (D)Kiran MICROSCOPIC DESCRIPTION: Microscopic examination performed. [facility]. Diagnosis: Skin, Right preauricular cheek shave, biopsy-- - Sebaceous adenoma. /jeffry/ FELIPE CABRERA STAFF PATHOLOGIST Signed Mar 08, 2024@15:56 Performing Laboratory: Surgical Pathology Report Performed By: [facility] [CLIA# [id number]] [place] [address] $FTR - - - - - - - - - - - - - - - - - - - - - - - - - - - - - - - - - - - - - - - - (End of report) FELIPE sanderson Date Mar 05, 2024 - - - - - - - - - - - - - - - - - - - - - - - - - - - - - - - - - - - - - - - - BETH DURAN STANDARD FORM 515 ID:[id number] SEX:M :1945 AGE: 78 LOC:1068 PCP: Ced Cline MD /jeffry/ FELIPE CABRERA STAFF PATHOLOGIST Signed: 03/08/2024 15:56 FELIPE CABRERA [facility] February 09, 2024 01:57 PM LR SURGICAL PATHOL OGY REPORT: LOCAL TITLE: LR SURGICAL PATHOLOGY REPORT STANDARD TITLE: PATHOLOGY REPORT DATE OF NOTE: FEBRUARY 09, 2024@13:57:21 ENTRY DATE: FEBRUARY 09, 2024@13:57:21 AUTHOR: ADDY HENRIQUEZ COSIGNER: URGENCY: STATUS: COMPLETED $APHDR Reporting Lab: [facility] [CLIA# [id number]] [place] [address] - - - - - - - [...] Performing Laboratory: Surgical Pathology Report Performed By: [facility] [CLIA# [id number]] [place] [address] $FTR - - - - - - [...] - - BETH DURAN STANDARD FORM 515 ID:[id number] SEX:M :1945 AGE: 78 LOC: PCP: Ced Cline MD /jeffry/ ADDY HENRIQUEZ MD STAFF PATHOLOGIST Signed: 02/09/2024 13:57 ADDY HENRIQUEZ [facility] February 09, 2024 01:56 PM LR SURGICAL PATHOL OGY REPORT: LOCAL TITLE: LR SURGICAL PATHOLOGY REPORT STANDARD TITLE: PATHOLOGY REPORT DATE OF NOTE: FEBRUARY 09, 2024@13:56:54 ENTRY DATE: FEBRUARY 09, 2024@13:56:54 AUTHOR: ADDY HENRIQUEZIGNER: URGENCY: STATUS: COMPLETED $APHDR Reporting Lab: [facility] [CLIA# [id number]] [place] [address] - - - - - - - [...] Performing Laboratory: Surgical Pathology Report Performed By: [facility] [CLIA# [id number]] [place] [address] $FTR - - - - - - [...] - - BETH DURAN STANDARD FORM 515 ID:[id number] SEX:M :1945 AGE: 78 LOC: PCP: Ced Cline MD /jeffry/ ADDY HENRIQUEZ MD STAFF PATHOLOGIST Signed: 02/09/2024 13:56 ADDY HENRIQUEZ [facility] Encounter Notes: All associated encounter notes This section contains the clinical notes associated to the Encounter. Date/Time Encounter Note(s) Provider Source Mar 02, 2024 12:30 PM MENTAL HEALTH CONSULT: LOCAL TITLE: MH NEUROPSYCHOLOGY CONSULT STANDARD TITLE: MENTAL HEALTH CONSULT DATE OF NOTE: MAR 02, 2024@12:30 ENTRY DATE: MAR 03, 2024@11:45:29 AUTHOR: MAYDA STARR COSIGNER: URGENCY: STATUS: COMPLETED NEUROPSYCHOLOGY CONSULT Has ADDENDA Long Key was seen on 03/02/24 for an outpatient neuropsychological evaluation. Informed Consent: Informed consent was obtained for participation, including the purpose of the evaluation, limits of confidentiality, risks, benefits, and potential complications. The [place] indicated understanding and agreed to proceed with the evaluation. The [place] also provided permission for his , Azra, to participate in the clinical interview to provide collateral information. Mr. Duran arrived on time to the appointment and was accompanied by his (Azra). The undersigned staff neuropsychologist completed a clinical interview (60 minutes) with the [place] and his and neuropsychological testing (120 minutes) with the . Of note, the test battery was abbreviated due to 's visual deficits and inability to use his dominant hand. Preliminary Diagnosis: Major Neurocognitive Disorder (i.e., dementia), due vascular disease (r/o emerging cortical neurodegenerative disease) SUICIDE/HOMICIDE RISK ASSESSMENT: explicityly denied any current suicidal/homicidal ideation, intent, plan or attempt. The reported experiencing suicidal ideation 5 weeks ago. Based on further inquiring with the [place] and his , this occurred while [place] was frustrated and did not want to leave the vehicle to return to his [facility]. [place] denied any intent or plan. Risk factors: Older white male, history of sucidal ideation (secondary to limited independence) without plan or intent (five weeks ago, four months ago), loss of mobility/independence, impulsivity, history of depression, cognitive impairment Protective factors: absence of current suicidal/homicidal ideation, intent, plan, or behavior, no known history of suicide attempt or psychiatric inpatient hospitalization, no substance use issues, 21/04 supervision at [facility], no access to firearms, perceived social support from family, future oriented. Risk Determination: Suicide: Acute = Low. Chronic = Intermediate. Homicide: Acute = Low. Chronic = Low. TREATMENT PLANNING: Results are pending. Full report with final impressions & recommendations will follow and be appended to this consult. Feedback from this evaluation will be provided on 03/29/2024. Rocio and his were provided contact information of the undersigned and was encouraged to call with related inquiries in the interim as needed. /jeffry/ Mayda Starr, PhD Staff Neuropsychologist Signed: 03/03/2024 12:16 04/21/2024 ADDENDUM STATUS: COMPLETED NEUROPSYCHOLOGICAL EVALUATION Name: Beth Duran Date of : 1945 Age: 78 Education: 18 year ([employer]) Handedness: Right Date of Evaluation: 03/02/2024 Referral Source: Ced Cline MD (Primary Care Physician) REASON FOR REFERRAL: Rocio is an 78-year-old, , white male referred for outpatient neuropsychological evaluation by his PCP. Per consult note, Rocio had CVA in 2021, An DYNAMOTOR REPAIRER at [facility] is requesting neuropsychology to evaluate and treat for cognitive evaluation/evaluation of safety, judgement, insight to health. Further review of [facility] records indicate outside DYNAMOTOR REPAIRER placed referral for home safety evaluation as patient goes home with 2 days per week for several hours and wants to make sure it is safe and accessible for patient. Per notes, patient's subsequently declined a home safety evaluation and stated she has no intention of bringing patient home and/or making adjustments to home at this time. Record review revealed no prior neuropsychological evaluation. Per review of available medical records, Rocio had a suspected embolic stroke affecting multiple vascular territories in November 2021 with residual right hemiparesis and visual field cut. Brain imaging taken on the day prior to his stroke when presenting for TIA was significant for subacute Restricted diffusion corresponding T2 hyperintensity involving the cortex and subcortical white matter of the posterior left frontal lobe measuring 10 mm, and additional punctate foci of restricted diffusion in the posterior right frontal and parietal lobes. Curvilinear area of restricted diffusion in the mesial left temporal lobe and anterior left temporal lobe. 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 He has not returned home since his stroke. Functional status is fully dependent for I/ADLs. is wheelchair/bed bound and receives assistance for bathing, dressing, toileting, and grooming. His or [facility] staff assist with all IADLs. Additional medical history is significant for several prior TIAs, HLD, HTN, DMII, w/ diabetic retinopathy, asthma, AGNIESZKA (no CPAP), CHF, paroxysmal atrial fibrillation, and depression. SUMMARY/IMPRESSION: Premorbid intellectual abilities were estimated be at least average based on educational/occupational attainment and sight-reading ability. Relative to presumed baseline abilities, the cognitive profile revealed below expectation performance on measures of verbal processing speed, and aspects of learning/memory and executive functioning. Expressive language abilities were mildly below expectation compared to presumed premorbid abilities. Assessment of visuospatial abilities were limited by vision problems and inability to draw using his dominant hand. With that said, there was no clear evidence of visuospatial dysfunction or neglect. Regarding memory, his ability to learning of rote verbal information was attenuated and he was not able to independently recall any information following a delay. He displayed modest benefit from recognition cues, suggesting reduced consolidation abilities. His immediate and delayed recall for prose information was also below expectation. In contrast, his ability to recall visual information following a delay was broadly intact. Executive functioning was variable. Oral alphanumeric sequencing and response inhibition performances were error prone, whereas his performance on a measure of semantic fluency with a set-shifting component was within expectation. Performance on measures of attention/working memory and language were preserved. His responses to hypothetical health & safety scenarios were notable for at times being vague and incomplete. For example, when asked how he would remember to take medications three times per day he was not able to provide any strategies, and would just remember to do that. However, he was generally able recognize the emergent nature of health scenarios and generate an adequate solution. Responses to psychological indicated mild symptoms of depression, which was consistent with his report during interview. In summary this was abnormal study. While the evaluation was somewhat limited due to [place]'s visual and motor difficulties, test results indicated slowed information processing speed, and deficits in verbal learning/memory and aspects of executive functioning. Determination of functional capabilities is difficult due to 's significant physical deficits/limitations. Cognitive impairment across multiple domains suggests that a diagnosis of Major Neurocognitive Disorder is likely. The pattern of deficits suggest frontal-subcortical dysfunction, with possible involvement of left mesial temporal lobes. Etiological considerations include cerebrovascular disease given 's history of multi-territory stroke and cerebrovascular burden on neuroimaging. His pattern of deficits was fairly consistent with neuroimaging evidence of cerebrovascular impact in the frontal, parietal, and left mesial/anterior temporal lobes. Give the [place]'s age and collateral report of progressive cognitive decline, a co-occurring cortical neurodegenerative condition (i.e., Alzheimer's disease) cannot be ruled out. Untreated sleep apnea and depressive symptoms likely exacerbate current cognitive difficulties. During the interview the acknowledged experiencing decline in memory and that he has significant physical limitations following his stroke. He also acknowledged that he require supervision and assistance when complete I/ADLs and would not plan to attempt to do these activities on his own. He identified that he is at a risk for falls and further injury to weakness in his lower extremities. He also expressed understanding that he would likely need to experience further improvement in order return home. He also appeared to have understanding that his would not be able to provide the level of care needed to support him at home and would require a time study analyst IRRIGATION TECHNICIAN. From that perspective he appears to have preserved insight and appreciate health status and safety. It is impossible that [place]'s may have reduced insight/unrealistic expectations for potential improvement in physical abilities. However, I will defer to OT/PT regarding the potential for further physical recovery; it is unclear what type of physical improvement is considered realistic at this point. Objective functional assessment throughout OT may also be considered to better characterize functional abilities and/or ability operate his motorized wheel chair independently (given visual field cuts). Based on current cognitive difficulties and predominant physical limitations, it strongly recommended that not be left unsupervised when he visits home as is at risk for falls. DSM-5 DIAGNOSIS(ES): Major Neurocognitive Disorder, due to vascular disease (r/o emerging cortical neurodegenerative condition) Major Depressive disorder, recurrent, mild. RECOMMENDATIONS & TREATMENT PLANNING FOR PROVIDERS: 1. Consider referral to OT to complete objective functional assessment to be characterize daily functional abilities given numerous physical limitations. Additionally, given [place] visual field cut and observed navigational difficulties, consider evaluation of his safety to operate his motorized wheelchair (if this has not already been assessed). 2. If this has not already occurred, 's PT/OT providers and other medical providers are encouraged to have a sarah conversation with regarding expectation for rehabilitation/recovery of physical symptoms (e.g., likelihood of walking); the unclear status (per [place]'s report) is a source of significant marital tension. 3. Routine monitoring Long [place]'s mood is strongly recommended based on history of depression, intermittent SI, and loss of independence. 4. Consultation with Social Work ([phone]) for discussion of: a. POA, Advanced Directive, and other relevant legal matters. b. Home-health, respite, and other community and [place]-based caregiving support programs c. Future care and residential planning. d. Eligibility for [facility] programming. 5. Repeat neuropsychological evaluation may be considered in 12+ months to track cognitive trajectory. However, given [place] major neurocognitive disorder diagnosis and visual/physical limitations, a repeat comprehensive evaluation may be of limited clinical utility. Follow-up evaluation may not be necessary with appropriate supports and close follow-up with treating providers. A [facility] referral/consultation through neuropsychology is also available for support/psychoeducation as needed. RECOMMENDATIONS FOR /FAMILY: 1. Prognostically, the current difficulties will persist and further decline is possible. [place] appears to be receiving appropriate level of I/ADL support needed at his [facility]. Should he ever return home he would likely need similar level of support given his residual deficits. 2. Ongoing supervision of and assistance with functional activities is strongly advised, balancing 's autonomy with safety risk. a. Assistance of a trusted individual with all medical, financial, residential, and other important life decisions. b. When Long Key is visit home, consider utilization of an emergency alert system in the event of a fall. c. Integration of strict routine/structure into daily activities d. Continued assistance with medication management from home health aides. e. Continued assistance with medical appointment scheduling and care coordination and accompaniment to all medical appointments by a trusted loved one. 3. Engagement in a heart-healthy lifestyle to reduce risk for another stroke. 4. Given cognitive impairments the following recommendations are offered: a. Repetition and simplification of information may be helpful. b. Routine checking of his comprehension is recommended. c. Written instructions are suggested as reminders for daily activities. d. He may benefit from attempting one task at a time and allowing extra time to complete complex tasks. 5. Increased engagement in social, leisure, and cognitive-challenging activities he enjoys which may serve to improve mood and maintain cognitive functioning. Consideration of moving to an assisted living facility may also ensure regular social contact. 6. Caregiver engagement in personal self-care and regular interaction with social support networks to reduce risk of caregiver burden. Additional resources for the and his family include: a. Alzheimer's Association, [place] Chapter (www.alz.org) b. [facility] Caregiver Support Program c. [place] Caregiver Support Line (www.caregiver.va.gov) Thank you for the opportunity to participate in this 's care. Please do not hesitate to contact the office at if you have further questions. - EXTENDED REPORT -- SERVICES RENDERED: Clinical Interview Total time: 60-minutes Neurobehavioral status exam (15000) 1 Neuropsychological testing/scoring by Psychologist (total time): 180-minutes Initial 30 minutes (57766): 1 * Subsequent 30-mins increments (12326): 4 Neuropsychological test evaluation services (total time): 240-minutes First hour (13373): 1 * Additional hours (89752): 3 Total: 7.5 hours INFORMED CONSENT: Informed consent procedures were completed with the [place] including discussion of the reason for evaluation referral along with information regarding test procedures, benefits/risks/complications associated with neuropsychological evaluation, and limits of confidentiality. Mr. Duran voiced understanding and provided verbal consent to participate in the evaluation. He also gave verbal permission for his to participate in the interview portion to provide collateral history. The following history was gathered from clinical interview with the and review of available medical records. BEHAVIORAL OBSERVATIONS: arrived on time and was accompanied by his . Neither he nor his were aware of the purpose of the evaluation or who requested it. He present to the appointment in large wheel motorized wheel chair with tilting ability. [facility] [place] operated the WC with his non-dominant left hand. He was able to maneuver the wheelchair into a fairly tight office; however, he scraped door frame on multiple occasions and ran over the examiner's foot twice. When maneuvering down the hallway he had a tendence drift toward the right side and bumped into the wall a few times. He was casually dressed and grooming/hygiene appeared adequate. Of note, the 's packed adult diapers for the appointment. After the interview, she told the examiner that he will wet himself and will need to be changed because she will not le him in my car soaking wet. Examiner informed the 's that we do not have nursing services available in our clinic. She replied, good luck and left the clinic. Indeed, the experienced urinary incontinence during testing and a nurse from a nearby medical unit agreed to assist with changing the [place]. This nurse notified the examiner that the 's balance was actually pretty good. The was unable to use his dominant hand at all. He attempted to use his left hand on drawing tasks, but this proved difficult and performance on drawing measures were not reliably interpreted. He frequently tilted his head to the side to compensate for the right visual field deficits. Visual deficits likely affected select test performances, especially on those that required reading. The [place] was fully oriented to person and place. He was grossly oriented to time (missed date by one day, initially stated year as 2021 but corrected himself). He was able to name the current and previous [place] President. Thought processes were linear and goal-directed. Speech was mildly dysarthric but generally fluent and otherwise normal in rate, tone, and prosody. No significant word finding difficulties or paraphasic errors were observed. Basic receptive language appeared intact. Mood was slightly dysthymic and affect was in full range. During interview, there were times where he was impatient and abrasive with his , nearing shouting. These instances occurred when the topic of [facility] and returning home, progress on his walking, and related issues were discussed. His also corrected minor errors in dates and quizzed him on the names of grandchildren, as if to prove his memory difficulties. There was obvious tension between the two. Rapport was gradually established, though he was occasionally irritable during testing. He appeared to be a fairly reliable historian as compared to the medical record. During testing he had a tendency to give up quickly, but responded to encouragement from the examiner, which often resulted in improved performance. On several occasions he attempted to start tasks before the examiner was finished giving instructions. Overall he was generally pleasant and cooperative. Testing was limited due to patient's inability to use his dominant right hand and visual difficulties. & COLLATERAL REPORT OF PRESENTING CONCERNS: The and his , Azra, agree that Rocio experienced abrupt cognitive changes following his stroke in November 2021. The denied awareness of any cognitive decline prior to his stroke. The perceives his cognitive difficulties have been fairly stable over time; where as his believes his memory has gradually been declining. The endorsed primary problems with forgetfulness, such remembering names of acquaintances/grandchildren and difficulty tracking upcoming appointments/dates. He also endorsed mild attentional difficulties such as tracking conversations when multiple people are involved. His corroborated this report and added that he seems to become easily distracted out the facility's cafeteria or when interacting with multiple staff members. She also noted that he tends to repeat questions and conversations. Apart from dysarthria, they denied any significant change to language abilities. The [place] no longer reads or writes due to residual vision/motor deficits. He able to listen to news programs on the radio and follow along. [facility] [place]'s additionally noted that she has difficulty making decisions and problem solving since the stroke. She noted that he has seemed to become more self-focused over time, with most of his conversations topics centering on himself. She does not think he has a realistic appreciation of his residual cognitive and physical limitations following his stroke. The wants to return home, but from her perspective this is beyond the pale given the medical care and assistance that he requires on a daily basis. Both the [place] and his acknowledged that with his current functional status he would require assistance with almost all daily activities as he is wheelchair bound. They have the financial means to hire a full-time appraiser personal property but none of the agencies they have contacted to date offer these type of services (e.g., full ADL support). The [place]'s perception is that his has not been very supportive of his recovery/rehabilitation efforts, does not want him to return home, and has not exhausted all options for hiring in- home care. The [place]'s stated that she is not able to provide the care that he needs and is not strong enough to help him up if he were to fall. This subject is a source of significant tension/conflict. Physical Symptoms: Rocio is primarily bound to wheelchair or his bed. He stated that he has been able to walk independently to bathroom in his room at his facility. His has not witnessed this and is skeptical, she reported that she had been notified the past that he had fallen while trying to walk to the bathroom. Rocio stated that he is continuing to work with PT to improve strength and increased walking. Endorsed weakness in his lower extremities (R>L) following stroke. He has lost all motion in his right arm, though sensation/pain is intact. He reported functional incontinence of bladder due to limited mobility. He wears adult undergarments. Per review of outside neurology records in [facility], Rocio sustained a right visual field cut (R homonymous hemianopsia) that is quite dense. reported that visual deficits have remained stable over time. He endorsed hearing loss and is unable to wear hearing aids due to inability to put them on due to loss of motion in dominant right hand. The denied any changes to appetite but the food at his [facility] doesn't taste good. He has residual dysphagia symptoms from his stroke and has been evaluated by FORESTRY TECHNICIAN. He lost 50-60lbs after the stroke but his weight is reportedly stable recently. He endorsed occasional dizziness/lightheadedness and constipation, more recently has been vomiting after breakfast, no nausea preceding, just throws up. [facility] staff is aware. Rocio typically obtains 9 hours of sleep per night and feels well rested during the dday. He denied insomnia. He was diagnosed with AGNIESZKA 25 years ago but has never been able to tolerate a PAP device. He is unaware of any apneic events or RBD symptoms. Affective & Behavioral Symptoms: Current mood reported as ok. Rocio stated that he does not enjoy residing at the [facility] and wishes he could return home. He endorsed period episodes of depression throughout his life and last episode was several months ago. He denied current significant symptoms of depression but occasionally feels down. He endorsed increased marital tension due to his perception that his does not want him to return home. His reported that the has less patience and becomes easily frustrated, especially with regard to returning home. The [place] denied any history of delusions or hallucinations. Rocio endorsed experiencing intermittent SI throughout his life with no plan, attempt, or behavior. He reported last experiencing passive suicidal ideation approximately 4 months ago, related to not wanting to be at the [facility]. His reported that approximately 5 weeks ago, after a trip home he refused to leave the care to return to the [facility] and said he would kill himself if he had to back. [place] acknowledged this event and stated he had said it out of frustration and had no intent or means of acting on it. He denied any current SI/HI. RISK ASSESSMENT: Risk factors: Older white male, history of suicidal ideation (secondary to limited independence) without plan or intent (five weeks ago, four months ago), loss of mobility/independence, impulsivity, history of depression, cognitive impairment Protective factors: absence of current suicidal/homicidal ideation, intent, plan, or behavior, no known history of suicide attempt or psychiatric inpatient hospitalization, no substance use issues, 21/04 supervision at [facility], no access to firearms, perceived social support from family, future oriented. Risk Determination: Suicide: Acute = Low. Chronic = Intermediate. Homicide: Acute = Low. Chronic = Low. FUNCTIONAL STATUS: Residential Status: Rocoi has been living at an assisted living facility ([facility]) for approximately the past two years. Per his he is at level 5 out of 5 for the amount of assistance he receives. His continues to reside in their 2-story house. She will take the [facility] [place] back to their house on occasion (~1-2/week). She stated that she would be able to leave him home alone because he is not able to use the telephone in case of emergency. The [place]'s stated that she does not plan to make any physical alterations to their home. Per records, Rocio's declined a home safety evaluation. During interview, the 's confirmed this information. She stated that she consider having the [place] return home only if they were able to hire someone to provide 24-hour care and she is unable to provide the level of physical assistance needed by the [place]. Basic ADLs: Self-Care: Independent. Assisted by staff for showering/bathing due to physical limitations. Mobility: Independent. In wheel chair. Toileting: Independent. Some assistance received for transferring. Able to perform actions independently. Feeding: Independent. Denied dysphagia symptoms. Medication: Assisted by [facility] staff. Previously received assistance from for past 4 years prior to the stroke, although [facility] [place] had administered injections independently and without issue. Finances: has historically managed finances. She provides [place] with $20-30 to make purchases at the local shop at the [facility]. Groceries: Dependent. Food provided at the [facility]. Meal Prep: Meals provided at the [facility] Household: N/A. Cleaning provided by staff. Driving: Has not driven since after his stroke. Does not plan to return to driving. MEDICAL/PSYCHIATRIC HISTORY: Active problems - Computerized Problem List is the source for the followin. Hypertension 2. Hyperlipidemia 3. Tinnitus * 4. 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 Asthma 6. Diabetic retinopathy 7. Type 2 diabetes mellitus 8. Umbilical hernia 9. Obstructive sleep apnea 10. Obesity * 11. Anemia 12. Rosacea 13. Carcinoma of bladder - Followed by outside Urology. 14. Depression ([facility] [id number]) - prescribed by [facility] for depression 15. Congestive heart failure 16. CVA - Cerebrovascular accident - 11/2020, outside hospital. - Right sided hemiparesis 17. Dysphagia as a late effect of cerebrovascular accident 18. Long-term current use of anticoagulant 19. Exposure to Agent [place] 20. Paroxysmal atrial fibrillation 21. Exposure to potentially hazardous substance ([facility] [id number]) - Entered automatically through [facility] Problem List documentation program [facility]'s care is co-managed in the community. In addition to the above listed there is no known history of trauma, developmental delay, MS, PHP MAGENTO DEVELOPER infection, TBI, or seizure. CVA History: Mr. Duran experienced an abrupt onset of right-sided motor weakness on 12/23/21 and presented to ED at an OSH. Symptoms resolved and he was discharged home. Symptoms recurred the next day and he was readmitted presenting with right-sided weakness and slowed speech. The right-sided weakness of the arm and leg have never fully resolved. Brain MRI showed multiple territories affected which was felt to be strongly suggestive of a cardioembolic source. He was discharged to [address] [place] [address] for rehabilitation. Per [facility] and report the did not walk for 6 months and just laid on blanket. They were not satisfied with the care that he received there. He moved to [facility] on in February 2023 and continues to work with PT. Original records from his hospitalization at the time of his stroke were not available for review, only the first hospitalization note regarding TIA on 12/23/21. In August 2023, [place] sustained a fall resulting in acute displacement fracture of the distal third of the right clavicle and multiple rib fractures on his right side. Psychiatric history is significant for diagnosis of depression with onset of symptoms approximately 30-40 years ago. reported intermittent episodes of depression over the years. He is prescribed an anti-depressant medication by his primary care provider. He denied any history of other mental health treatment, psychiatric hospitalization or self harm. Per review of [facility] Patient Contact notes, it appears that has been involved in some sort of psychotherapy while at [address] [place] [address] or [facility] as some point. He denied any history of alcohol/substance abuse or chemical dependency treatment. He consumes approximately 1 beer per month. He denied any current use of tobacco, cannabis or illicit substances. He drinks coffee daily. NEUROIMAGIN09/21/2023. CT Head/Brain w/o contrast (completed at non-[facility] facility) revealed tiny chronic right cerebellar and left basal ganglia infarcts. Nonspecific low attenuation white matter changes consistent with chronic microvascular disease. 12/24/2021. Brain MRI w/o contrast completed at non-[facility] facility (summary available in [facility]). Findings: Generalized cerebral and cerebellar volume loss. Foci of T2 hyperintensity in the periventricular and subcortical deep white matter are nonspecific but most compatible with chronic small vessel ischemic changes. Restricted diffusion corresponding T2 hyperintensity involving the cortex and subcortical white matter of the posterior left frontal lobe measuring 10 mm, and additional punctate foci of restricted diffusion in the posterior right frontal and parietal lobes. Curvilinear area of restricted diffusion in the mesial left temporal lobe and anterior left temporal lobe. Paranasal sinus disease. Chronic lacunar infarcts inferior cerebellar hemispheres. Remainder unremarkable. Impression: Foci of subacute infarct in multiple vascular distributions as described above. These are likely great than 24 hours old. Consider an embolic source. PREVIOUS NEUROPSYCHOLOGICAL TESTING -No prior neuropsychological evaluation available for review CURRENT MEDICATIONS: Active Outpatient Medications (including Supplies): Active Outpatient Medications Status 1) ACCU-CHEK GUIDE (GLUCOSE) TEST STRIP USE 1 STRIP ACTIVE FOUR TIMES A DAY TO CHECK BLOOD SUGAR--USE WITHIN 3 MINUTES OF REMOVING FROM CONTAINER 2) ACETAMINOPHEN 500MG TAB TAKE TWO TABLETS BY MOUTH ACTIVE THREE TIMES A DAY NEEDED FOR PAIN 3) APIXABAN 5MG TAB TAKE ONE TABLET BY MOUTH EVERY 12 ACTIVE HOURS TO PREVENT STROKES 4) ATORVASTATIN CALCIUM 80MG TAB TAKE ONE TABLET BY ACTIVE MOUTH AT BEDTIME FOR CHOLESTEROL 5) BANDAGE TUBULAR ELASTIC NET SZ 5 X 25YD USE DRESSING ACTIVE RETAINER TOPICALLY DIRECTED FOR WOUND CARE (DRESSING SECUREMENT) 6) BUPROPION HCL 150MG 24HR SA TAB TAKE ONE TABLET BY ACTIVE MOUTH EVERY DAY FOR DEPRESSION 7) CHOLECALCIF 25MCG (D3-1,000UNIT) TAB TAKE ONE TABLET ACTIVE BY MOUTH EVERY DAY FOR VITAMIN D SUPPLEMENT 8) CLEANSER,WOUND SKINTEGRITY TOP SPRAY SPRAY TO ACTIVE AFFECTED AREA TOPICALLY DIRECTED FOR WOUND CARE 9) DEPEND UNDERWEAR,MAXIMUM,MEN LARGE USE 1 BRIEF ACTIVE THREE TIMES A DAY NEEDED FOR URINARY INCONTINENCE 10) DRESS,HYDROGEL SPAND-GEL [id number] #[id number] APPLY 1 ACTIVE DRESSING TOPICALLY DIRECTED FOR WOUND CARE 11) DRESS,MEPILEX BORDER FLEX 4X4IN #[id number] APPLY 1 ACTIVE DRESSING TOPICALLY EVERY DAY FOR LEFT UPPER THIGH WOUND 12) EMPAGLIFLOZIN 25MG TAB TAKE ONE TABLET BY MOUTH EVERY ACTIVE DAY FOR DIABETES 13) ESCITALOPRAM OXALATE 10MG TAB TAKE ONE TABLET BY ACTIVE MOUTH EVERY DAY FOR MOOD 14) GAUZE PAD 4IN X 4IN 12-PLY STERILE USE GAUZE SPONGE ACTIVE GAUZE PAD 4IN X 4IN 12-PLY STERILE TOPICALLY DIRECTED FOR WOUND CARE 15) INSULIN,ASPART(EQV-NOVLG)100 UN/ML FLXPEN INJECT ACTIVE DIRECTED UNDER THE SKIN THREE TIMES A DAY FOR DIABETES WITH MEALS PER SLIDING SCALE: 150-199 = 2 UNITS. 200-249 = 4 UNITS. 250-299 = 6 UNITS. 300-349 = 8 UNITS. 350-399 = 10 UNITS. 400-500 = 12 UNITS. HOLD FOR BS < 100. NOTIFY PROVIDER IF BS > 500 OR < 70. PRIME INSULIN PEN WITH 2 UNITS PRIOR TO ADMINISTRATION. MAX 36 UNITS PER DAY. 16) INSULIN,GLARGINE-YFGN 100UNIT/ML PEN 3ML INJECT 25 ACTIVE UNITS UNDER THE SKIN AT BEDTIME FOR DIABETES 17) KERLIX 4.5IN STERILE USE 1 BANDAGE TOPICALLY ACTIVE DIRECTED 18) KETOCONAZOLE 2% SHAMPOO SHAMPOO SCALP TOPICALLY 3 ACTIVE TIMES WEEKLY *LATHER FOR 5 MINUTES THEN RINSE* 19) LEVOTHYROXINE NA (SYNTHROID) 100MCG TAB TAKE ONE ACTIVE TABLET BY MOUTH EVERY DAY FOR THYROID 20) LIDOCAINE 5% PATCH APPLY 1 PATCH TOPICALLY EVERY DAY ACTIVE NEEDED FOR UP TO 12 HOURS FOR PAIN REMOVE AFTER 12 HOURS. MAX 1 PATCH PER 24 HOURS. 21) LOPERAMIDE HCL 2MG CAP TAKE ONE CAPSULE BY MOUTH ACTIVE EVERY 6 HOURS NEEDED FOR DIARRHEA DIRECTED: 2 CAPSULES (4MG) AFTER 1ST LOOSE STOOL, THEN 1 CAPSULE AFTER SUBSEQUENT LOOSE STOOL IF NEEDED. MAX 8 CAPS (16MG/DAY). 22) LOSARTAN 25MG TAB TAKE ONE TABLET BY MOUTH EVERY DAY ACTIVE FOR BLOOD PRESSURE 23) MECLIZINE HCL 25MG CHEW TAB CHEW ONE-HALF TABLET BY ACTIVE MOUTH EVERY DAY AND CHEW ONE-HALF TABLET EVERY DAY NEEDED FOR DIZZINESS 24) MELATONIN 3MG CAP/TAB TAKE 2 TABLETS BY MOUTH AT ACTIVE BEDTIME FOR SLEEP 25) NEEDLE,PEN 31G,8MM USE 1 NEEDLE UNDER THE SKIN ACTIVE DIRECTED *DISPOSE OF IN A HARD-PLASTIC CONTAINER WITH A SCREW-ON LID CONTACT GARBAGE [facility] FOR PROPER DISPOSAL 26) OMEPRAZOLE 40MG EC CAP TAKE ONE CAPSULE BY MOUTH ACTIVE EVERY DAY FOR STOMACH ACID DOSE INCREASE 27) ONDANSETRON 4MG ORAL DISINTEGRATING TAB DISSOLVE ONE ACTIVE TABLET BY UNDER THE TONGUE EVERY 6 HOURS NEEDED FOR NAUSEA AND VOMITING 28) PAD,ABDOMINAL 7.5 X 8 STERILE USE PAD TOPICALLY HOLD DIRECTED 29) POISE PAD,ULTIMATE ABSORB EXTRA COVERAGE USE PAD ACTIVE TOPICALLY THREE TIMES A DAY NEEDED FOR URINARY INCONTINENCE 30) SEMAGLUTIDE 1MG/0.75ML INJ PEN 3ML INJECT 1MG UNDER ACTIVE THE SKIN EVERY WEEK FOR DIABETES 31) SENNOSIDES 8.6MG TAB TAKE TWO TABLETS BY MOUTH EVERY ACTIVE DAY NEEDED FOR CONSTIPATION 32) SODIUM FLUORIDE 1.1% TOOTHPASTE BRUSH TEETH WITH A ACTIVE SMALL AMOUNT MOUTH EVERY MORNING AND AT BEDTIME TO PREVENT DENTAL CAVITIES 33) TAPE,MEDIPORE H SOFT 4IN X 10YD 3M#[id number] CUT AND APPLY ACTIVE TAPE TOPICALLY DIRECTED 34) TORSEMIDE 10MG TAB TAKE ONE TABLET BY MOUTH EVERY DAY ACTIVE FOR EXCESS FLUID 35) ZINC OXIDE 20% OINT APPLY SMALL AMOUNT TOPICALLY ACTIVE THREE TIMES A DAY NEEDED FOR SKIN PROTECTION APPLY A THIN LAYER TO AFFECTED PERINEAL AREAS TOPICALLY 2-3 TIMES DAILY NEEDED. MAY DAB AND REAPPLY. DO NOT WIPE COMPLETELY OFF SKIN FOR EACH APPLICATION. FAMILY HISTORY: Father: CAD, depression, from heart attack (age 76) Mother: HTN, CAD, from heart attack (age 83) No known history of dementia/Alzheimer's disease or other neurological conditions. PSYCHOSOCIAL HISTORY: Mr. Duran was born and raised in [place], [place]. He denied any history of early learning difficulties, learning disability, or attentional/behavioral difficulties. He attended a one-room country school and denied any history of grade retention or special education needs. He earned good grades without having to study. He graduated from high school on time. 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 He later earned a bachelor's degree from the [employer] and a Master's degree in social work from the [employer]. 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 He reported exposure to [place]. 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 He retired 5-10 years ago ([facility] [place] and disagreed on residential date). The and his have been for 60 years and have five adult children. Legal history is unremarkable. TESTS ADMINISTERED: - Victor Naming Test (BNT) - Leticia Watkins Executive Functions System (DKEFS)- Color-Word Interference & Verbal Fluency - Geriatric Anxiety Inventory - Geriatric Depression Scale-15 item version (GDS-15) - Independent Living Scale ? Health & Safety subtest - Repeatable Battery for the Assessment of Neuropsychological Status (RBANS)- Form A, Story Memory - Test of Premorbid Functioning - [place] Making Test A & B (Oral Version) - Benedicto Adult Intelligence Scale-4th Edition (WAIS-IV), select subtests EXAMINATION FINDINGS: Descriptive Church: RS = raw score SS = standardized score (T, z, ss, SS) %ile = percentile rank Performance Validity [place] demonstrated adequate effort on an embedded measure of performance validity. Behaviorally, he was cooperative and appeared to be fully engaged during testing. There were no clear indication of anxiety or frustration affective test engagement or effort. Overall, results of the evaluation are believed to be a valid representation of current cognitive functioning. Premorbid Intellectual Functioning RS SS %ile [facility] 34 97 42 Motor Functioning RS SS %ile Unable assess due to loss of movement in dominant hand/arm Attention/Cognitive Efficiency RS SS %ile RBANS_DigitSpan 10 12 75 WAISIV_DigitSpan 23 10 50 WAISIV_DigitSpan_Forward 9 9 37 WAISIV_DigitSpan_Backward 6 8 25 WAISIV_DigitSpan_Sequencing 8 12 75 WAISIV_LongestDigit_Forward 6 WAISIV_LongestDigit_Backward 3 WAISIV_LongestDigit_Sequenci ng 6 Oral Trails_A 10 -1.26 10 DKEFS_Color 50 4 2 DKEFS_Word 47 1 <1 SDMT Oral 24 -2.13 2 Language RS SS %ile DKEFS Letter Fluency 24 8 25 DKEFS Category Fluency 29 10 50 RBANS_SemanticFluency 9 4 2 BNT 49 40 16 BNT_withPhonemicCues 56 RBANS_PictureNaming 10 >75 Visuospatial Abilities RS SS %ile RBANS_FigureCopy* 13 4 2 RBANS_LineOrientation 13 10-16 *Drawn with his left hand. Drawn with left hand, which negatively impacted performance. There was no evidence of clear visuospatial dysfunction or neglect. Learning and Memory RS SS %ile RBANS_ListLearning_Trial1 2 RBANS_ListLearning_Trial2 5 RBANS_ListLearning_Trial3 7 RBANS_ListLearning_Trial4 5 RBANS_ListLearning 19 7 16 RBANS_ListRecall 0 3-9 RBANS_ListRecognition 15 2 RBANS_ListHits 5 RBANS_ListFalsePositives 0 RBANS_StoryMemoryT1 2 RBANS_StoryMemoryT2 8 RBANS_StoryMemory 10 5 5 RBANS_StoryRecall 2 4 2 RBANS_FigureRecall 10 9 37 Executive Functioning RS SS %ile Oral Trails_B DC at 95 seconds Trails_B_Errors 3 DKEFS_Inhibition 120 7 16 DKEFS_Inhibition_errors 13 3 1 DKEFS Fluency Category Switching 10 9 37 DKEFS Fluency Category Switching Accuracy 8 9 37 Emotional/Personality Functioning RS Descriptor GDS-15 5 Mild Daily Function RS SS %ile [facility] - Health & Safety 28 31 Low /es/ Mayda Starr, PhD Staff Neuropsychologist Signed: 04/21/2024 22:59 MAYDA STARR [facility]
--- OUTSIDE RECORDS SUMMARY | 2024-06-02 00:45 | XMS_ITS | Encounter Summary ---
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 Operator Helper Name Role Phone CED EPSTEIN Primary Care [...] Relationship to Policy Mar [facility] [place] [facility] (WNR) MEDICARE ADVANTAGE [facility] (R) Sep 29, 2019 [id number] ONI DURAN MON PATIENT [facility] [place] [facility] (WNR) MEDICARE (M) [facility] (R) Sep 29, 2008 [id number] ONI DURAN MON PATIENT [facility] [place] [facility] (WNR) MEDICARE ADVANTAGE [facility] (WNR) Sep 29, 2008 [id number] [phone] ONI DURAN MON PATIENT [facility] (WNR) MEDICARE ADVANTAGE [facility] ([facility]) Sep 29, 2019 [id number] ONI DURAN PATIENT [facility] MCR (WNR) MEDICARE ADVANTAGE [facility] (WNR) Sep 29, 2010 [id number] ONI DURAN PATIENT Selected Encounter This section includes the information on record at [place] for the Encounter. Date/Time Encounter Type Encounter Description Reason Provider Source Mar 04, 2024 02:00 PM OFFICE O/P EST MOD 30 MIN DERMATOLOGY ICD-10-CM D48.5 Neoplasm of uncertain behavior of skin DAVID DREW IHE Encounter Template Text not used by [place] Assessments - Encounter Diagnoses This section includes the primary and secondary diagnoses documented for the Encounter. Date/Time Primary/Secondary Diagnosis Diagnosis Name Provider Source Mar 04, 2024 02:44 PM PRIMARY Neoplasm of uncertain behavior of skin [facility] Mar 04, 2024 02:44 PM SECONDARY Personal history of other malignant neoplasm of skin [facility] Plan of Treatment: Future Appointments (+ 6 months) and Future Tests (+/- 45 days) The Plan of Treatment section includes future care activities for the patient [facility] [place] [facility] This section includes future appointments and future orders which are active, pending or scheduled. Future Appointments This section includes appointments that were scheduled to occur 6 months from the date of the Encounter, up to a maximum of 20 appointments. The data comes from all [place] treatment facilities. Appointment Date/Time Appointment Type Appointme [...] 14, 2024 04:50 PM AMBULATORY - NONE [place] [facility] Active, Pending, and Scheduled Orders This section includes a listing of several types of active, pending, and scheduled orders, including clinic medications orders, diagnostic test orders, procedure orders and consult orders; where the start date of the order is 45 days before the date of the Encounter or 45 days after the date of theEncounter. The data comes from all [place] treatment facilities. Test Date/Time Test Type Test Details Facility Name Apr 05, 2024 12:00 AM Laboratory - Chemi stry Order ALT/SGPT PLASMA SP [facility] Apr 05, 2024 12:00 AM Laboratory - Chemi stry Order AST/SGOT PLASMA SP [facility] Apr 05, 2024 12:00 AM Laboratory - Chemi stry Order CBC BLOOD SP ONCE [facility] Apr 05, 2024 12:00 AM Laboratory - Chemi stry Order BASIC METABOLIC PANEL+MG PLASMA SP [facility] Social History: Smoking Status (Most current) and [...] PM VA-TOBACCO QUIT 15 YRS OR MORE [facility] Tobacco Use History This section includes a history of the smoking, or tobacco-related health factors, that were collected on or before the date of the Encounter. The data comes from the [place] facility where the Encounter took place. Date/Time Smoking Status/Tobacco Use Comment F acility Sep 10, 2023 03:30 PM VA-TOBACCO QUIT 15 YRS OR MORE [facility] Jun 13, 2020 10:00 AM VA-TOBACCO FORMER USER [facility] Jun 13, 2020 10:00 AM VA-TOBACCO QUIT 15 YRS OR MORE [facility] May 20, 2019 12:18 PM VA-TOBACCO FORMER USER [facility] May 20, 2019 12:18 PM VA-TOBACCO QUIT 15 YRS OR MORE [facility] Jul 30, 2018 08:31 AM VA-TOBACCO FORMER USER [facility] Jul 30, 2018 08:31 AM VA-TOBACCO QUIT 15 YRS OR MORE [facility] Aug 25, 2017 08:04 AM FORMER TOBACCO USER 7Y OR GREATE R [facility] Nov 08, 2016 08:12 AM FORMER TOBACCO USER 7Y OR GREATE R [facility] Nov 29, 2015 12:46 PM FORMER TOBACCO USER 7Y OR GREATE R [facility] February 23, 2015 12:57 PM FORMER TOBACCO USER 7Y OR GREATE R [facility] January 27, 2014 10:10 AM FORMER TOBACCO USER 7Y OR GREATE R [facility] Mar 17, 2007 09:11 AM FORMER TOBACCO USER 7Y OR GREATE R [facility] Advance Directives: All historical and current Section Date Range: From patient's date of to the date document was created. This section includes ALL of a patient's completed or amended [place] Advance and Rescinded Directives. The entries below indicate that a directive exists for the patient, but an actual copy is not included with this document. The data comes from all [place] facilities. Date Advance Directives Provider Source Mar 17, 2007 ADVANCE DIRECTIVE JENNIFERALBERTO SHIVA [facility] Pathology Reports: +/- 30 days [...] the Encounter. The data comes from all [facility] facilities. Date/Time Pathology Report Provider Source Mar 08, 2024 03:56 PM LR SURGICAL PATHOL OGY REPORT: LOCAL TITLE: LR SURGICAL PATHOLOGY REPORT STANDARD TITLE: PATHOLOGY REPORT DATE OF NOTE: MAR 08, 2024@15:56:47 ENTRY DATE: MAR 08, 2024@15:56:47 AUTHOR: FELIPE CABRERA EXP COSIGNER: URGENCY: STATUS: COMPLETED $APHDR Reporting Lab: [facility] [CLIA# [id number]] [place] [address] - - - - - - - [...] - - - PATHOLOGY REPORT Accession No. [id number] - - - - - - - - - - - - - - - - - - - - - - - - - - - - - - - - - - - - - - - - $TEXT Submitted by: SCARLET GREENE Date obtained: Mar 04, 2024 - - [...] - - - POSTOPERATIVE DIAGNOSIS: Surgeon/physician: SCARLET GREENE =-=-=-=-=-=-=-=-=-=-=-=-=- =-=-=-=-=-=-=-=-=-=-=-=-=- =-=-=-=-=-=-=-=-=-=-=-=-=- = - - - [...] 0.2 cm. The specimen is inked. CE. (D)SMcCoy MICROSCOPIC DESCRIPTION: Microscopic examination performed. [facility]. Diagnosis: Skin, Right preauricular cheek shave, biopsy-- - Sebaceous adenoma. /jeffry/ FELIPE CABRERA STAFF PATHOLOGIST Signed Mar 08, 2024@15:56 Performing Laboratory: Surgical Pathology Report Performed By: [facility] [CLIA# [id number]] [place] [address] $FTR - - - - - - - - - - - - - - - - - - - - - - - - - - - - - - - - - - - - - - - - (End of report) FELIPE CABRERA MD [facility] Date Mar 05, 2024 - - - - - - - - - - - - - - - - - - - - - - - - - - - - - - - - - - - - - - - - BETH DURAN STANDARD FORM 515 ID:[id number] SEX:M :1945 AGE: 78 LOC:1068 PCP: Ced Epstein MD /jeffry/ FELIPE CABRERA STAFF PATHOLOGIST Signed: 03/08/2024 15:56 FELIPE CABRERA [facility] February 09, 2024 01:57 PM LR SURGICAL PATHOL OGY REPORT: LOCAL TITLE: LR SURGICAL PATHOLOGY REPORT STANDARD TITLE: PATHOLOGY REPORT DATE OF NOTE: FEBRUARY 09, 2024@13:57:21 ENTRY DATE: FEBRUARY 09, 2024@13:57:21 AUTHOR: ADDY HENRIQUEZ COSIGNER: URGENCY: STATUS: COMPLETED $APHDR Reporting Lab: [facility] [CLIA# [id number]] [place] [address] - - - - - - - [...] - - PATHOLOGY REPORT Accession No. [id number] - - - - - - - [...] Performing Laboratory: Surgical Pathology Report Performed By: [facility] [CLIA# [id number]] [place] [address] $FTR - - - - - - [...] - - BETH DURAN STANDARD FORM 515 ID:[id number] SEX:M :1945 AGE: 78 LOC: PCP: Ced Epstein MD /jeffry/ ADDY HENRIQUEZ MD STAFF PATHOLOGIST Signed: 02/09/2024 13:57 ADDY HENRIQUEZ [facility] February 09, 2024 01:56 PM LR SURGICAL PATHOL OGY REPORT: LOCAL TITLE: LR SURGICAL PATHOLOGY REPORT STANDARD TITLE: PATHOLOGY REPORT DATE OF NOTE: FEBRUARY 09, 2024@13:56:54 ENTRY DATE: FEBRUARY 09, 2024@13:56:54 AUTHOR: ADDY HENRIQUEZ EXP COSIGNER: URGENCY: STATUS: COMPLETED $APHDR Reporting Lab: [facility] [CLIA# [id number]] [place] [address] - - - - - - - [...] Performing Laboratory: Surgical Pathology Report Performed By: [facility] [CLIA# [id number]] [place] [address] $FTR - - - - - - [...] - - BETH DURAN STANDARD FORM 515 ID:[id number] SEX:M :1945 AGE: 78 LOC: PCP: Ced Epstein MD /jeffry/ ADDY HENRIQUEZ MD STAFF PATHOLOGIST Signed: 02/09/2024 13:56 ADDY HENRIQUEZ [facility] Encounter Notes: All associated encounter notes This section contains the clinical notes associated to the Encounter. Date/Time Encounter Note(s) Provider Source Mar 09, 2024 03:18 PM ADDENDUM: LOCAL TITLE: Addendum STANDARD TITLE: ADDENDUM DATE OF NOTE: MAR 09, 2024@15:18:54 ENTRY DATE: MAR 09, 2024@15:18:55 AUTHOR: GABRIELA ABRAHAM EXP COSIGNER: URGENCY: STATUS: COMPLETED Kim calling again from Home [facility] asking about dressing changes. State that she missed provider call and would like her to call cell number tomorrow on return call. # [phone] as she will be in and out of the office. /jeffry/ GABRIELA ABRAHAM LPN LICENSED PRACTICAL NURSE Signed: 03/09/2024 15:20 Receipt Acknowledged By: 03/10/2024 11:56 /jeffry/ SCARLET GREENE MD RESIDENT --- Original Document --- 03/04/24 DERMATOLOGY CLINIC NOTE: Clinic note Dr. Drew saw and evaluated the patient with me, and agrees with the findings,assessment and plan as outlined. 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 - Patient recently had MMS for two lesions on the right ear at at the time of the procedure, a exophytic papule was noted by Dr. Murdock - Patient is returning today to have the spot evaluated and biopsied. Review of systems: CONST: Otherwise in baseline state of health. SKIN: As above in HPI, no additional skin concerns. OBJECTIVE: GEN: No acute distress. SKIN: UBSE (head/neck, trunk, arms, hands/fingernails) - R ear with well healing wounds with granulation tissue, no erythema no drainage. - R preauricular cheek with exophytic dome shaped nodule with atypical vasculature noted under dermoscopy - Diffuse xerosis noted on b/l upper extremities and senile purpura ASSESSMENT & PLAN: # NUB - R Preauricular cheek s/p shave biopsy 03/04/24 - SHAVE BIOPSY PROCEDURE NOTE: A time-out was taken prior to the procedure to verify correct patient, correct site and correct procedure. After verifying patient's identification and obtaining informed consent, including discussions of the risks of bleeding,infection, and scarring,the lesion was cleansed with an alcohol swab then injected with 1.0 cc of 1% lidocaine with epinephrine. A Remy blade was used to shave the lesion. Specimen was labeled and sent to pathology in formalin. Aluminum chloride was applied for chemical cauterization. Petrolatum and bandaid were applied to the biopsy site. Post-biopsy wound care was discussed in detail. # History of NMSC. NERD. - Sun protection, including daily SPF 30+, advised # Seborrheic keratoses, monterroso angiomas. Reassured of benign etiology. - No further intervention required RTC 14 months for UBSE. Advised sooner for any tender, painful, bleeding, rapidly changing, or otherwise concerning lesions. Total encounter time (including chart review, counseling, documentation, ordering of labs/meds): 30-39 min /jeffry/ SCARLET GREENE MD RESIDENT Signed: 03/04/2024 14:45 03/05/2024 ADDENDUM STATUS: COMPLETED Patient's home care nurse, Kim called inquiring about wound care for his MOHS site. She is doing wound care 3x week, and is wondering if this is still needed? It was advised that we could return the phone call on Friday after talking to the doctor he saw on 03/04 Kim - [phone] /zhanna FRANCO LPN LICENSED PRACTICAL NURSE Signed: 03/05/2024 15:26 Receipt Acknowledged By: 03/09/2024 12:15 /jeffry/ SCARLET GREENE MD RESIDENT 03/05/2024 ADDENDUM STATUS: COMPLETED please tag nurse to advise home care nurse /zhanna FRANCO LPN LICENSED PRACTICAL NURSE Signed: 03/05/2024 15:27 03/09/2024 ADDENDUM STATUS: COMPLETED Home Health nurse calling again requesting information from treating doctor to inquire if dressing changes are still needed for MOHS site. Please advise /jeffry/ GABRIELA ABRAHAM LPN LICENSED PRACTICAL NURSE Signed: 03/09/2024 09:24 Receipt Acknowledged By: 03/09/2024 12:13 /zhanna GREENE MD RESIDENT 03/09/2024 ADDENDUM STATUS: COMPLETED Called the patients woundcare nurse with regards to wound care instruction Kim - [phone] Murdock 02/09/24 and at the time the plan was as follows: The patient will use topical gentamycin to the wounds. He was given Cipro 500 mg BID for 10 days. Will advice to continue with the topical gentamycin until the wound is healed without drainage and to gentle wipe away granulation tissue. Once wound is healed can continue with Vaseline and gentle wiping away any excess keratin until resolved and without pain. Planning on reviewing the pathology for the patient with Dr. Pierce monday 03/12 and will call the patient with regards to the biopy for the pre-auricular cheek then. /jeffry/ SCARLET GREENE MD RESIDENT Signed: 03/09/2024 12:17 Receipt Acknowledged By: 03/10/2024 08:51 /jeffry/ ANDRIY FRANCO LPN LICENSED PRACTICAL NURSE 03/09/2024 15:25 /jeffry/ GABRIELA ABRAHAM LPN LICENSED PRACTICAL NURSE 03/09/2024 ADDENDUM STATUS: COMPLETED called with regards to biopsy results. No answer. Will call again tomorrow 03/10/24 Scarlet Greene MD Dermatology /jeffry/ SCARLET GREENE MD RESIDENT Signed: 03/09/2024 12:55 03/09/2024 ADDENDUM STATUS: COMPLETED If continued dressing changes are to be done Kim will need updated orders faxed to her at [phone] /jeffry/ GABRIELA ABRAHAM LPN LICENSED PRACTICAL NURSE Signed: 03/09/2024 15:27 03/10/2024 ADDENDUM STATUS: UNSIGNED You may not VIEW this UNSIGNED Addendum. GABRIELA ABRAHAM [facility] Mar 09, 2024 12:15 PM ADDENDUM: LOCAL TITLE: Addendum STANDARD TITLE: ADDENDUM DATE OF NOTE: MAR 09, 2024@12:15:19 ENTRY DATE: MAR 09, 2024@12:15:20 AUTHOR: SCARLET GREENE COSIGNER: URGENCY: STATUS: COMPLETED Called the patients woundcare nurse with regards to wound care instruction Kim - [phone] Murdock 02/09/24 and at the time the plan was as follows: The patient will use topical gentamycin to the wounds. He was given Cipro 500 mg BID for 10 days. Will advice to continue with the topical gentamycin until the wound is healed without drainage and to gentle wipe away granulation tissue. Once wound is healed can continue with Vaseline and gentle wiping away any excess keratin until resolved and without pain. Planning on reviewing the pathology for the patient with Dr. Pierce monday 03/12 and will call the patient with regards to the biopy for the pre-auricular cheek then. /es/ SCARLET GREENE MD RESIDENT Signed: 03/09/2024 12:17 Receipt Acknowledged By: 03/10/2024 08:51 /es/ ANDRIY FRANCO LPN LICENSED PRACTICAL NURSE 03/09/2024 15:25 /es/ GABRIELA ABRAHAM LPN LICENSED PRACTICAL NURSE --- Original Document --- 03/04/24 DERMATOLOGY CLINIC NOTE: Clinic note Dr. Drew saw and evaluated the patient with me, and agrees with the findings,assessment and plan as outlined. 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 - Patient recently had MMS for two lesions on the right ear at at the time of the procedure, a exophytic papule was noted by Dr. Murdock - Patient is returning today to have the spot evaluated and biopsied. Review of systems: CONST: Otherwise in baseline state of health. SKIN: As above in HPI, no additional skin concerns. OBJECTIVE: GEN: No acute distress. SKIN: UBSE (head/neck, trunk, arms, hands/fingernails) - R ear with well healing wounds with granulation tissue, no erythema no drainage. - R preauricular cheek with exophytic dome shaped nodule with atypical vasculature noted under dermoscopy - Diffuse xerosis noted on b/l upper extremities and senile purpura ASSESSMENT & PLAN: # NUB - R Preauricular cheek s/p shave biopsy 03/04/24 - SHAVE BIOPSY PROCEDURE NOTE: A time-out was taken prior to the procedure to verify correct patient, correct site and correct procedure. After verifying patient's identification and obtaining informed consent, including discussions of the risks of bleeding,infection, and scarring,the lesion was cleansed with an alcohol swab then injected with 1.0 cc of 1% lidocaine with epinephrine. A Remy blade was used to shave the lesion. Specimen was labeled and sent to pathology in formalin. Aluminum chloride was applied for chemical cauterization. Petrolatum and bandaid were applied to the biopsy site. Post-biopsy wound care was discussed in detail. # History of NMSC. NERD. - Sun protection, including daily SPF 30+, advised # Seborrheic keratoses, monterroso angiomas. Reassured of benign etiology. - No further intervention required RTC 14 months for UBSE. Advised sooner for any tender, painful, bleeding, rapidly changing, or otherwise concerning lesions. Total encounter time (including chart review, counseling, documentation, ordering of labs/meds): 30-39 min /es/ SCARLET GREENE MD RESIDENT Signed: 03/04/2024 14:45 03/05/2024 ADDENDUM STATUS: COMPLETED Patient's home care nurse, Kim called inquiring about wound care for his MOHS site. She is doing wound care 3x week, and is wondering if this is still needed? It was advised that we could return the phone call on Friday after talking to the doctor he saw on 03/04 Kim - [phone] /jeffry/ ANDRIY FRANCO LPN LICENSED PRACTICAL NURSE Signed: 03/05/2024 15:26 Receipt Acknowledged By: 03/09/2024 12:15 /jeffry/ SCARLET GREENE MD RESIDENT 03/05/2024 ADDENDUM STATUS: COMPLETED please tag nurse to advise home care nurse /zhanna FRANCO LPN LICENSED PRACTICAL NURSE Signed: 03/05/2024 15:27 03/09/2024 ADDENDUM STATUS: COMPLETED Home Health nurse calling again requesting information from treating doctor to inquire if dressing changes are still needed for [facility] site. Please advise /zhanna ABRAHAM LPN LICENSED PRACTICAL NURSE Signed: 03/09/2024 09:24 Receipt Acknowledged By: 03/09/2024 12:13 /jeffry/ SCARLET GREENE MD RESIDENT 03/09/2024 ADDENDUM STATUS: COMPLETED called with regards to biopsy results. No answer. Will call again tomorrow 03/10/24 Scarlet Greene MD Dermatology /jeffry/ SCARLET GREENE MD RESIDENT Signed: 03/09/2024 12:55 03/09/2024 ADDENDUM STATUS: COMPLETED Kim calling again from Home Care asking about dressing changes. State that she missed provider call and would like her to call cell number tomorrow on return call. # [phone] as she will be in and out of the office. /jeffry/ GABRIELA ABRAHAM LPN LICENSED PRACTICAL NURSE Signed: 03/09/2024 15:20 Receipt Acknowledged By: * AWAITING SIGNATURE * SCARLET GREENE 03/09/2024 ADDENDUM STATUS: COMPLETED If continued dressing changes are to be done Kim will need updated orders faxed to her at [phone] /jeffry/ GABRIELA ABRAHAM LPN LICENSED PRACTICAL NURSE Signed: 03/09/2024 15:27 SCARLET GREENE [facility] Mar 09, 2024 09:23 AM ADDENDUM: LOCAL TITLE: Addendum STANDARD TITLE: ADDENDUM DATE OF NOTE: MAR 09, 2024@09:23:11 ENTRY DATE: MAR 09, 2024@09:23:12 AUTHOR: GABREILA ABRAHAM EXP COSIGNER: URGENCY: STATUS: COMPLETED Home Health nurse calling again requesting information from treating doctor to inquire if dressing changes are still needed for MOHS site. Please advise /jeffry/ GABRIELA ABRAHAM LPN LICENSED PRACTICAL NURSE Signed: 03/09/2024 09:24 Receipt Acknowledged By: 03/09/2024 12:13 /jeffry/ SCARLET GREENE MD RESIDENT --- Original Document --- 03/04/24 DERMATOLOGY CLINIC NOTE: Clinic note Dr. Drew saw and evaluated the patient with me, and agrees with the findings,assessment and plan as outlined. 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 - Patient recently had MMS for two lesions on the right ear at at the time of the procedure, a exophytic papule was noted by Dr. Murdock - Patient is returning today to have the spot evaluated and biopsied. Review of systems: CONST: Otherwise in baseline state of health. SKIN: As above in HPI, no additional skin concerns. OBJECTIVE: GEN: No acute distress. SKIN: UBSE (head/neck, trunk, arms, hands/fingernails) - R ear with well healing wounds with granulation tissue, no erythema no drainage. - R preauricular cheek with exophytic dome shaped nodule with atypical vasculature noted under dermoscopy - Diffuse xerosis noted on b/l upper extremities and senile purpura ASSESSMENT & PLAN: # NUB - R Preauricular cheek s/p shave biopsy 03/04/24 - SHAVE BIOPSY PROCEDURE NOTE: A time-out was taken prior to the procedure to verify correct patient, correct site and correct procedure. After verifying patient's identification and obtaining informed consent, including discussions of the risks of bleeding,infection, and scarring,the lesion was cleansed with an alcohol swab then injected with 1.0 cc of 1% lidocaine with epinephrine. A [place] blade was used to shave the lesion. Specimen was labeled and sent to pathology in formalin. Aluminum chloride was applied for chemical cauterization. Petrolatum and bandaid were applied to the biopsy site. Post-biopsy wound care was discussed in detail. # History of NMSC. NERD. - Sun protection, including daily SPF 30+, advised # Seborrheic keratoses, monterroso angiomas. Reassured of benign etiology. - No further intervention required RTC 14 months for UBSE. Advised sooner for any tender, painful, bleeding, rapidly changing, or otherwise concerning lesions. Total encounter time (including chart review, counseling, documentation, ordering of labs/meds): 30-39 min /jeffry/ SCARLET GREENE MD RESIDENT Signed: 03/04/2024 14:45 03/05/2024 ADDENDUM STATUS: COMPLETED Patient's home care nurse, Kim called inquiring about wound care for his MOHS site. She is doing wound care 3x week, and is wondering if this is still needed? It was advised that we could return the phone call on Friday after talking to the doctor he saw on 03/04 Kim - [phone] /jeffry/ ANDRIY FRANCO LPN LICENSED PRACTICAL NURSE Signed: 03/05/2024 15:26 Receipt Acknowledged By: * AWAITING SIGNATURE * SCARLET GREENE 03/05/2024 ADDENDUM STATUS: COMPLETED please tag nurse to advise home care nurse /zhanna FRANCO LPN LICENSED PRACTICAL NURSE Signed: 03/05/2024 15:27 GABRIELA ABRAHAM [facility] 07, 2024 03:20 PM ADDENDUM: LOCAL TITLE: Addendum STANDARD TITLE: ADDENDUM DATE OF NOTE: MAR 05, 2024@15:20:10 ENTRY DATE: MAR 05, 2024@15:20:12 AUTHOR: ANDRIY FRANCO EXP COSIGNER: URGENCY: STATUS: COMPLETED Patient's home care nurse, Kim called inquiring about wound care for his MOHS site. She is doing wound care 3x week, and is wondering if this is still needed? It was advised that we could return the phone call on Friday after talking to the doctor he saw on 03/04 Kim - [phone] /jeffry/ ANDRIY FRANCO LPN LICENSED PRACTICAL NURSE Signed: 03/05/2024 15:26 Receipt Acknowledged By: 03/09/2024 12:15 /es/ SCARLET GREENE MD RESIDENT --- Original Document --- 03/04/24 DERMATOLOGY CLINIC NOTE: Clinic note Dr. Drew saw and evaluated the patient with me, and agrees with the findings,assessment and plan as outlined. 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 - Patient recently had MMS for two lesions on the right ear at at the time of the procedure, a exophytic papule was noted by Dr. Murdock - Patient is returning today to have the spot evaluated and biopsied. Review of systems: CONST: Otherwise in baseline state of health. SKIN: As above in HPI, no additional skin concerns. OBJECTIVE: GEN: No acute distress. SKIN: UBSE (head/neck, trunk, arms, hands/fingernails) - R ear with well healing wounds with granulation tissue, no erythema no drainage. - R preauricular cheek with exophytic dome shaped nodule with atypical vasculature noted under dermoscopy - Diffuse xerosis noted on b/l upper extremities and senile purpura ASSESSMENT & PLAN: # NUB - R Preauricular cheek s/p shave biopsy 03/04/24 - SHAVE BIOPSY PROCEDURE NOTE: A time-out was taken prior to the procedure to verify correct patient, correct site and correct procedure. After verifying patient's identification and obtaining informed consent, including discussions of the risks of bleeding,infection, and scarring,the lesion was cleansed with an alcohol swab then injected with 1.0 cc of 1% lidocaine with epinephrine. A Remy blade was used to shave the lesion. Specimen was labeled and sent to pathology in formalin. Aluminum chloride was applied for chemical cauterization. Petrolatum and bandaid were applied to the biopsy site. Post-biopsy wound care was discussed in detail. # History of NMSC. NERD. - Sun protection, including daily SPF 30+, advised # Seborrheic keratoses, monterroso angiomas. Reassured of benign etiology. - No further intervention required RTC 14 months for UBSE. Advised sooner for any tender, painful, bleeding, rapidly changing, or otherwise concerning lesions. Total encounter time (including chart review, counseling, documentation, ordering of labs/meds): 30-39 min /jeffry/ SCARLET GREENE MD RESIDENT Signed: 03/04/2024 14:45 03/05/2024 ADDENDUM STATUS: COMPLETED please tag nurse to advise home care nurse /jeffry/ ANDRIY FRANCO LPN LICENSED PRACTICAL NURSE Signed: 03/05/2024 15:27 03/09/2024 ADDENDUM STATUS: COMPLETED Home Health nurse calling again requesting information from treating doctor to inquire if dressing changes are still needed for MOHS site. Please advise /jeffry/ GABRIELA ABRAHAM LPN LICENSED PRACTICAL NURSE Signed: 03/09/2024 09:24 Receipt Acknowledged By: 03/09/2024 12:13 /jeffry/ SCARLET GREENE MD RESIDENT SALVADORANDRIY Neto [facility] Mar 04, 2024 02:56 PM DERMATOLOGY NURSIN G OUTPATIENT NOTE: LOCAL TITLE: DERMATOLOGY CLINIC NURSING NOTE STANDARD TITLE: DERMATOLOGY NURSING OUTPATIENT NOTE DATE OF NOTE: MAR 04, 2024@14:56 ENTRY DATE: MAR 04, 2024@14:56:45 AUTHOR: FROILAN CARROLL EXP COSIGNER: URGENCY: STATUS: COMPLETED Dermatology Clinic Nursing Note Post Procedure Nursing Note Vaseline, band-aid applied to biopsy site on the R. Pre Auricular Cheek. This bandage should be kept clean and dry for 1 day. After 1 day the bandage can be removed and the biopsy site should be gently cleaned once per day with soap and water, pat dry, then covered with Vaseline and a bandage. Daily cleaning and dressing changes should be done until skin is fully healed. No other products should be used on the biopsy site i.e., hydrogen peroxide, rubbing alcohol, skin oils, creams, prescriptions until the area is completely healed. Educational Screening: Barriers to Learning/Special Needs: No Barriers Identified Preferred Style of Learning: No preference stated Teaching Strategy: 1:1 Written/printed material Instruction: Patient/family/caregiver instructed in standard Post-Biopsy wound care. Printed instruction sheet provided for home reference: Skin Biopsy Patient Instruction Understanding: Patient/family/caregiver: Able to verbalize understanding. Follow up teaching: /jeffry/ FROILAN CARROLL LICENCED PRACTICAL NURSE Signed: 03/04/2024 14:59 FROILAN CARROLL [facility] Mar 04, 2024 02:10 PM DERMATOLOGY ATTEND ING NOTE: LOCAL TITLE: DERMATOLOGY CLINIC NOTE STANDARD TITLE: DERMATOLOGY ATTENDING NOTE DATE OF NOTE: MAR 04, 2024@14:10 ENTRY DATE: MAR 04, 2024@14:10:43 AUTHOR: SCARLET GREENE EXP COSIGNER: URGENCY: STATUS: COMPLETED DERMATOLOGY CLINIC NOTE Has ADDENDA Clinic note Dr. Drew saw and evaluated the patient with me, and agrees with the findings,assessment and plan as outlined. 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 - Patient recently had MMS for two lesions on the right ear at at the time of the procedure, a exophytic papule was noted by Dr. Murdock - Patient is returning today to have the spot evaluated and biopsied. Review of systems: CONST: Otherwise in baseline state of health. SKIN: As above in HPI, no additional skin concerns. OBJECTIVE: GEN: No acute distress. SKIN: UBSE (head/neck, trunk, arms, hands/fingernails) - R ear with well healing wounds with granulation tissue, no erythema no drainage. - R preauricular cheek with exophytic dome shaped nodule with atypical vasculature noted under dermoscopy - Diffuse xerosis noted on b/l upper extremities and senile purpura ASSESSMENT & PLAN: # NUB - R Preauricular cheek s/p shave biopsy 03/04/24 - SHAVE BIOPSY PROCEDURE NOTE: A time-out was taken prior to the procedure to verify correct patient, correct site and correct procedure. After verifying patient's identification and obtaining informed consent, including discussions of the risks of bleeding,infection, and scarring,the lesion was cleansed with an alcohol swab then injected with 1.0 cc of 1% lidocaine with epinephrine. A Remy blade was used to shave the lesion. Specimen was labeled and sent to pathology in formalin. Aluminum chloride was applied for chemical cauterization. Petrolatum and bandaid were applied to the biopsy site. Post-biopsy wound care was discussed in detail. # History of NMSC. NERD. - Sun protection, including daily SPF 30+, advised # Seborrheic keratoses, monterroso angiomas. Reassured of benign etiology. - No further intervention required RTC 14 months for UBSE. Advised sooner for any tender, painful, bleeding, rapidly changing, or otherwise concerning lesions. Total encounter time (including chart review, counseling, documentation, ordering of labs/meds): 30-39 min /jeffry/ SCARLET GREENE MD RESIDENT Signed: 03/04/2024 14:45 03/05/2024 ADDENDUM STATUS: COMPLETED Patient's home care nurse, Kim called inquiring about wound care for his MOHS site. She is doing wound care 3x week, and is wondering if this is still needed? It was advised that we could return the phone call on Friday after talking to the doctor he saw on 03/04 Kim Harmon [phone] /zhanna FRANCO LPN LICENSED PRACTICAL NURSE Signed: 03/05/2024 15:26 Receipt Acknowledged By: 03/09/2024 12:15 /jeffry/ SCARLET GREENE MD RESIDENT 03/05/2024 ADDENDUM STATUS: COMPLETED please tag nurse to advise home care nurse /zhanna FRANCO LPN LICENSED PRACTICAL NURSE Signed: 03/05/2024 15:27 03/09/2024 ADDENDUM STATUS: COMPLETED Home Health nurse calling again requesting information from treating doctor to inquire if dressing changes are still needed for MOHS site. Please advise /jeffry/ GABRIELA ABRAHAM LPN LICENSED PRACTICAL NURSE Signed: 03/09/2024 09:24 Receipt Acknowledged By: 03/09/2024 12:13 /jeffry/ SCARLET GREENE MD RESIDENT 03/09/2024 ADDENDUM STATUS: COMPLETED Called the patients woundcare nurse with regards to wound care instruction Kim Harmon [phone] Mudrock 02/09/24 and at the time the plan was as follows: The patient will use topical gentamycin to the wounds. He was given Cipro 500 mg BID for 10 days. Will advice to continue with the topical gentamycin until the wound is healed without drainage and to gentle wipe away granulation tissue. Once wound is healed can continue with Vaseline and gentle wiping away any excess keratin until resolved and without pain. Planning on reviewing the pathology for the patient with Dr. Pierce monday 03/12 and will call the patient with regards to the biopy for the pre-auricular cheek then. /jeffry/ SCARLET GREENE MD RESIDENT Signed: 03/09/2024 12:17 Receipt Acknowledged By: 03/10/2024 08:51 /jeffry/ ANDRIY FRANCO LPN LICENSED PRACTICAL NURSE 03/09/2024 15:25 /jeffry/ GABRIELA ABRAHAM LPN LICENSED PRACTICAL NURSE 03/09/2024 ADDENDUM STATUS: COMPLETED called with regards to biopsy results. No answer. Will call again tomorrow 03/10/24 Scarlet Greene MD Dermatology /jeffry/ SCARLET GREENE MD RESIDENT Signed: 03/09/2024 12:55 03/09/2024 ADDENDUM STATUS: COMPLETED Kim calling again from Home Care asking about dressing changes. State that she missed provider call and would like her to call cell number tomorrow on return call. # [phone] as she will be in and out of the office. /zhanna ABRAHAM LPN LICENSED PRACTICAL NURSE Signed: 03/09/2024 15:20 Receipt Acknowledged By: 03/10/2024 11:56 /jeffry/ SCARLET GREENE MD RESIDENT 03/09/2024 ADDENDUM STATUS: COMPLETED If continued dressing changes are to be done Kim will need updated orders faxed to her at [phone] /jeffry/ GABRIELA ABRAHAM LPN LICENSED PRACTICAL NURSE Signed: 03/09/2024 15:27 03/10/2024 ADDENDUM STATUS: COMPLETED Called patients nurse with regards to the plan and follow up. Did not answer but left a voicemail. Number called: # [phone] as she will be in and out of the office. /jeffry/ SCARLET GREENE MD RESIDENT Signed: 03/10/2024 11:57 03/12/2024 ADDENDUM STATUS: COMPLETED Called the patient with regards the biopsy results. Left VM. Will plan on calling next week and will have dermpathology review the sults as well. Will plan on an excision once the patient can be reached. Scarlet Greene MD Dermatology /jeffry/ SCARLET GREENE MD RESIDENT Signed: 03/12/2024 12:55 SCARLET GREENE [facility]
--- OUTSIDE RECORDS SUMMARY | 2024-06-02 00:45 | XMS_ITS | Encounter Summary ---
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 [facility] [place] Address [address] [place] [address] Care Team Providers Care Air Table Operator Name Role Phone LUCIAN CED Primary [...] to Policy Mar [facility] [place] [facility] ([place]NR) MEDICARE ADVANTAGE [facility] (R) Sep 29, 2019 [id number] [phone] ONI DURAN MON PATIENT [facility] [place] [facility] ([place]) MEDICARE (M) [facility] (R) Sep 29, 2008 [id number] [phone] ONI DURAN MON PATIENT [facility] [place] [facility] ([place]) MEDICARE ADVANTAGE [facility] (WNR) Sep 29, 2008 [id number] ONI DURAN MON PATIENT UCARE [facility] (WNR) MEDICARE ADVANTAGE [facility] (WNR) Sep 29, 2019 [id number] ONI DURAN PATIENT [facility] (WNR) MEDICARE ADVANTAGE [facility] (WNR) Sep 29, 2010 [id number] ONI DURAN PATIENT Selected Encounter This section includes the information on record at [place] for the Encounter. Date/Time Encounter Type Encounter Description Reason Provider Source Nov 06, 2023 02:00 PM OFF/OP EST JANUARY X REQ PHY/QHP WOUND TREAT & OSTOMY CARE ICD-10-CM S50.901A Unspecified superficial injury of right elbow, laronit CHAITANYA Mosley Encounter Template Text not used by [place] Assessments - Encounter Diagnoses This section includes the primary and secondary diagnoses documented for the Encounter. Date/Time Primary/Secondary Diagnosis Diagnosis Name Provider Source Nov 06, 2023 01:43 PM PRIMARY Unspecified superficial injury of right elbow, CHAITANYA Anglin [facility] Plan of Treatment: Future Appointments (+ 6 months) and Future Tests (+/- 45 days) The Plan of Treatment section includes future care activities for the patient [facility] [place] [facility]. This section includes future appointments and future orders which are active, pending or scheduled. Future Appointments This section includes appointments that were scheduled to occur 6 months from the date of the Encounter, up to a maximum of 20 appointments. The data comes from all [place] treatment facilities. Appointment Date/Time Appointment Type Appointme nt Facility Name Nov 11, 2023 01:30 PM AMBULATORY - [place] [facility] Nov 26, 2023 10:30 AM AMBUL[place]ORY - NONE [place] [facility] Jan 12, 2024 08:00 AM AMBULATORY - [place] [facility] Jan 12, 2024 09:00 AM AM[place]UL[place]ORY - [place]ONE [place] [facility] Jan 15, 2024 07:00 AM [place]ORY - NONE [place] [facility] Jan 15, 2024 09:30 AM AMBULATORY - SURGERY [place] [facility] January 28, 2024 03:00 PM AMBUL[place]ORY - NONE [place] [facility] February 09, 2024 11:00 AM AMBULATORY - SURGERY [place] [facility] Mar 02, 2024 12:30 PM AMBUL[place]ORY [place] [facility] Mar 04, 2024 02:00 PM AMBULATORY - SURGERY [place] BO[place] [facility] Mar 04, 2024 02:30 PM AMBULATORY - SURGERY [place] LERMAS [facility] Mar 08, 2024 11:15 AM AMBULATORY - SURGERY [facility]O LERMALIS [facility] Mar 29, 2024 02:00 PM AMBULATORY [facility] [place] [facility] Apr 19, 2024 11:15 PM AMBULATORY - NONE [facility] Apr 28, 2024 02:30 PM AMBULATORY - MEDICINE [place] [facility] Active, Pending, and Scheduled Orders This section includes a listing of several types of active, pending, and scheduled orders, including clinic medications orders, diagnostic test orders, procedure orders and consult orders; where the start date of the order is 45 days before the date of the Encounter or 45 days after the date of theEncounter. The data comes from all [place] treatment facilities. Test Date/Time Test Type Test Details Facility Name Nov 03, 2023 12:00 AM Laboratory - Chemi stry Order BASIC METABOLIC PANEL+MG PLASMA SP ONCE [facility] Lab Results: +/- 30 days of [...] Range Comment Nov 03, 2023 09:16 AM [facility] HEMOGLOBIN A1C Specimen Type: BLOOD Comment: [...] May 22, 2023 02:36 PM Reporting Lab: [facility] [id number] Performing Lab: [facility] [id number] HEMOGLOBIN A1C 7.3 H 4.0-6.0 Vital Signs: All taken on the encounter date This section contains inpatient and outpatient Vital Signs collected on the date of the Encounter. Date/Time Temperature Pulse Blood Pressure Respiratory Rate SP02 Pain Height Weight Body Mass Index Source Nov 06, 2023 09:55 AM 97.7 65 120/71 [address] [facility] Social History: Smoking Status (Most current) and Tobacco Use (All prior to encounter date) This section includes the most current, and the historical, smoking and tobacco- related health factors from the [place] facility where the Encounter took place. Current Smoking Status This section includes the most current smoking, or tobacco-related health factor, from the [place] facility where the Encounter took place. Date/Time Current Smoking Status Comment Facil ity Sep 10, 2023 03:30 PM VA-TOBACCO FORMER USER [facility] Tobacco Use History This section includes a history of the smoking, or tobacco-related health factors, that were collected on or before the date of the Encounter. The data comes from the [place] facility where the Encounter took place. Date/Time Smoking Status/Tobacco Use Comment F acility Sep 10, 2023 03:30 PM VA-TOBACCO QUIT 15 YRS OR MORE [facility] Jun 13, 2020 10:00 AM VA-TOBACCO FORMER USER [facility] Jun 13, 2020 10:00 AM VA-TOBACCO QUIT 15 YRS OR MORE [facility] May 20, 2019 12:18 PM VA-TOBACCO FORMER USER [facility] May 20, 2019 12:18 PM VA-TOBACCO QUIT 15 YRS OR MORE [facility] Jul 30, 2018 08:31 AM VA-TOBACCO FORMER USER [facility] Jul 30, 2018 08:31 AM VA-TOBACCO QUIT 15 YRS OR MORE [facility] Aug 25, 2017 08:04 AM FORMER TOBACCO USER 7Y OR GREATE R [facility] Nov 08, 2016 08:12 AM FORMER TOBACCO USER 7Y OR GREATE R [facility] Nov 29, 2015 12:46 PM FORMER TOBACCO USER 7Y OR GREATE R [facility] February 23, 2015 12:57 PM FORMER TOBACCO USER 7Y OR GREATE R [facility] January 27, 2014 10:10 AM FORMER TOBACCO USER 7Y OR GREATE R [facility] Mar 17, 2007 09:11 AM FORMER TOBACCO USER 7Y OR GREATE R [facility] Advance Directives: All historical and current [...] Mar 17, 2007 ADVANCE DIRECTIVE ALBERTO RODRIGUEZ [facility] Pathology Reports: +/- 30 days [...] the Encounter. The data comes from all [place] treatment facilities. Date/Time Pathology Report Provider Source Oct 24, 2023 01:05 PM LR SURGICAL PATHOL OGY REPORT: LOCAL TITLE: LR SURGICAL PATHOLOGY REPORT STANDARD TITLE: PATHOLOGY REPORT DATE OF NOTE: OCT 24, 2023@13:05:29 ENTRY DATE: OCT 24, 2023@13:05:29 AUTHOR: JANE DE LA VEGA EXP COSIGNER: URGENCY: STATUS: COMPLETED $APHDR Reporting Lab: [facility] [CLIA# [id number]] [place] [address] - - - - - - - [...] A) R SUPERIOR HELIX 2. B) R MACHAL BOWL 3. C) R DISTAL FOREARM - [...] the planes examined. Clinical correlation recommended. /jeffry/ AJNE DE LA VEGA STAFF PATHOLOGIST, PATHOLOGY & LABORATORY MED [facility] Signed Oct 24, 2023@13:05 Performing Laboratory: Surgical Pathology Report Performed By: [facility] [CLIA# [id number]] [place] [address] $FTR - - - - - - [...] - - BETH DURAN STANDARD FORM 515 ID:[id number] SEX:M :1945 AGE: 78 LOC:[id number] PCP: Ced Cline MD /jeffry/ JANE DE LA VEGA STAFF PATHOLOGIST, PATHOLOGY & LABORATORY MED [facility] Signed: 10/24/2023 13:05 JANE DE LA VEGA [facility] Encounter Notes: All associated encounter notes This section contains the clinical notes associated to the Encounter. Date/Time Encounter Note(s) Provider Source Nov 06, 2023 11:24 AM WOUND CARE CONSULT : LOCAL TITLE: WOC NURSE CONSULT STANDARD TITLE: WOUND CARE CONSULT DATE OF NOTE: NOV 06, 2023@11:24 ENTRY DATE: NOV 06, 2023@11:24:51 AUTHOR: CHAITANYA HUBER COSIGNER: URGENCY: STATUS: COMPLETED WOC NURSE CONSULT Has ADDENDA WOUND OSTOMY CONTINENCE (WO) NURSING ASSESSMENT: REASON FOR CONSULT: rt elbow. spouse states that rt elbow has an open area that has been present for about a month. Pt [facility] and Assisted Living PUBLIC HEALTH DIETITIAN are treating it differently. Per spouse at times sticky bandages on that seem to exacerbate wound. PROBLEM LIST: Active problems - Computerized Problem List is the source for the followin. Hypertension (SNOMED CT 63476641) 2. Hyperlipidemia (SNOMED CT 43324183) 3. Tinnitus * 4. 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 Asthma (SNOMED CT 041087236) 6. Diabetic retinopathy (SNOMED CT 9193118) 7. Type 2 diabetes mellitus (SNOMED CT 24440234) 8. Umbilical hernia (SNOMED CT 492728569) 9. Obstructive sleep apnea (SNOMED CT 77619369) 10. Obesity * - 10 TOPIC GRAD 07-09-2012* 244.0 --> 09-17-12* 243.2 lbs 11. Anemia 12. Rosacea 13. Carcinoma of bladder - Followed by outside Urology. 14. Depression ([facility] 65350480) - prescribed by [facility] for depression 15. Congestive heart failure 16. CVA - Cerebrovascular accident - 11/2020, outside hospital. - Right sided hemiparesis 17. Dysphagia as a late effect of cerebrovascular accident 18. Long-term current use of anticoagulant 19. Exposure to Agent Toombs 20. Paroxysmal atrial fibrillation WOUND HISTORY: Around Farrah time, stood and fainted, broke multiple ribs and his shoulder. Sustained injury to the R elbow. 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 Sometimes sustains trauma to the R elbow d/t no vision in the R eye. VERBAL CONSENT OBTAINED FOR PHOTOS, PLEASE SEE [employer] FOR PHOTOS ASSESSMENT: [place] presents to clinic in [place] w/[employer], bumped his right elbow into the wall as he was driving in. 's present for exam as well. [place] unable to transfer to exam chair. [place]'s reports that [facility] homecare based out [facility] comes out weekly to provide care for . They would like to increase frequency of visits to assist with wound care. FOCAL SKIN INSPECTION ASSESSMENT - R elbow wound with build-up of dried serosanguinous drainage to periwound, also dried prior dressings present as well. very painful per . used topical lidocaine gel for pain control, semi-effective. used a pick-ups and iris scissors to debride dried drainage and residual dressings. Moderate amount of sanguineous oozing, controlled well with pressure, gauze, and silver nitrate. WOUND ASSESSMENT LOCATION: R elbow TYPE OF WOUND: trauma EXTENT OF TISSUE LOSS: full thickness WOUND BASE: moist red globular base remained after CSD DIMENSIONS: ~approx. - measured as area Length: 7 cm Width: 3 cm Depth: +0.1 cm Tunneling: absent Undermining: absent EXUDATE (amount, type): moderate amount of sanguineous, controlled with silver nitrate ODOR: none WOUND EDGES: attached PERIWOUND SKIN: scar tissue SIGNS & SYMPTOMS OF LOCAL INFECTION: none WOUND PAIN: significant pain, used lidocaine gel topically PROGRESS: initial assessment TX: hydrogel sheet WOUND TREATMENT/INTERVENTIONS/JACINTO N OF CARE: - provided and with shower boot sleeves. encouraged use over dressing to R arm since he showers MWF. ACTIVITY ORDERS/RECOMMENDATIONS: no restrictions related to wound care at this time R ELBOW WOUND: Change FRIDAY/FRIDAY and PRN - Remove dressing in place - Cleanse with wound cleanser and gauze - Gently dry with dry gauze - Apply hydrogel sheet over wound - Cover with ABD and kerlix if not using the elbow protector - Secure with band net or Tubigrip GOALS: - heal wound - prevent further trauma to the elbow NEXT STEPS: - continue wound care per orders (twice weekly) - refer to dermatology d/t skin cancer hx for further evaluation if not healed in one month. 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 /jeffry/ CHAITANYA HUBER, RAMONAN, CWCN, CFCN, CWS CERTIFIED JEWELRY SALESPERSON Signed: 11/06/2023 13:43 11/27/2023 ADDENDUM STATUS: COMPLETED Called and spoke with 's homecare RN, Gissel. She reports the wound to the R elbow is 98% healed, primarily fragile epithelial tissue. 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 She will notify WOC of any concerns after follow up this afternoon, but does not anticipate any issues. She denies needs for any supplies. WOC team will sign off at this time, please reconsult with any further concerns. /jeffry/ JOSE MAS RN, BSN, CWOCN Signed: 11/27/2023 13:30 CHAITANYA HUBER [facility]
--- OUTSIDE RECORDS SUMMARY | 2024-06-02 00:45 | XMS_ITS | Encounter Summary ---
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 [facility] [place] Address [address] [place] [address] Care Team Providers Care Bi Analyst Name Role Phone LUCIAN ANDERS Primary Care Provider Unavailabl e Insurance Providers: [...] Relationship to Policy Mar [facility] [place] [facility] (WNR) MEDICARE [facility] ([facility]) Sep 29, 2019 [id number] ONI DURAN MON PATIENT [facility] [place] [facility] (R) MEDICARE (M) [facility] ([facility]) Sep 29, 2008 [id number] ONI DURAN MON PATIENT [facility] [place] [facility] (WNR) MEDICARE ADVANTAGE [facility] ([facility]) Sep 29, 2008 [id number] ONI DURAN MON PATIENT UCARE [facility] (R) MEDICARE [facility] ([facility]) Sep 29, 2019 [id number] 00 ONI DURAN PATIENT [facility] [place] [facility] (WNR) MEDICARE ADVANTAGE [facility] (WNR) Sep 29, 2010 [id number] 42 ONI DURAN PATIENT Selected Encounter This section includes the information on record at [place] for the Encounter. Date/Time Encounter Type Encounter Description Reason Pro vider Source Jan 13, 2024 08:30 AM Outpatient Encounter DENTAL IHE Encounter Template Text not used by [place] Plan of Treatment: Future Appointments (+ 6 months) and Future Tests (+/- 45 days) The Plan of Treatment section includes future care activities for the patient from all [place] treatmentfacilities. This section includes future appointments and future orders which are active, pending or scheduled. Future Appointments This section includes appointments that were scheduled to occur 6 months from the date of the Encounter, up to a maximum of 20 appointments. The data comes from all [place] treatment facilities. Appointment Date/Time Appointment Type Appointme nt Facility Name Jan 15, 2024 07:00 AM [facility] [place] [facility] Jan 15, 2024 09:30 AM AMBUL[facility]ORY - SURGERY [place] [facility] January 28, 2024 03:00 PM [place]ORY [place] NONE [place] [facility] February 09, 2024 11:00 AM [facility] Mar 02, 2024 12:30 PM AMBULATORY [place]ATRY [place] [facility] Mar 04, 2024 02:00 PM [facility] Mar 04, 2024 02:30 PM [facility] Mar 08, 2024 11:15 AM AMBULATORY - SURGERY [place] [facility] Mar 29, 2024 02:00 PM AMBULATORY - [place]RY [place] [facility] Apr 19, 2024 11:15 PM [facility]ORY - NONE [place] [facility] Apr 28, 2024 02:30 PM [facility] May 11, 2024 12:42 PM [facility] May 11, 2024 05:00 PM [facility]ORY - NONE [place] [facility] May 14, 2024 04:50 PM [facility] Active, Pending, and Scheduled Orders This section includes a listing of several types of active, pending, and scheduled orders, including clinic medications orders, diagnostic test orders, procedure orders and consult orders; where the start date of the order is 45 days before the date of the Encounter or 45 days after the date of theEncounter. The data comes from all [place] treatment facilities. Test Date/Time Test Type Test Details Facility Name Jan 12, 2024 12:00 AM Laboratory - Chemi stry Order BASIC METABOLIC PANEL+MG PLASMA [facility] Jan 12, 2024 12:00 AM Laboratory - Chemi stry Order HEMOGLOBIN A1C BLOOD [facility] Social History: Smoking Status (Most current) and Tobacco Use (All prior to encounter date) This section includes the most current, and the historical, smoking and tobacco- related health factors from the [place] facility where the Encounter took place. Current Smoking Status This section includes the most current smoking, or tobacco-related health factor, from the [place] facility where the Encounter took place. Date/Time Current Smoking Status Comment Facil ity Sep 10, 2023 03:30 PM VA-TOBACCO FORMER USER [facility] Tobacco Use History This section includes a history of the smoking, or tobacco-related health factors, that were collected on or before the date of the Encounter. The data comes from the [place] facility where the Encounter took place. Date/Time Smoking Status/Tobacco Use Comment F acility Sep 10, 2023 03:30 PM VA-TOBACCO QUIT 15 YRS OR MORE [facility] Jun 13, 2020 10:00 AM VA-TOBACCO FORMER USER [facility] Jun 13, 2020 10:00 AM VA-TOBACCO QUIT 15 YRS OR MORE [facility] May 20, 2019 12:18 PM VA-TOBACCO FORMER USER [facility] May 20, 2019 12:18 PM VA-TOBACCO QUIT 15 YRS OR MORE [facility] Jul 30, 2018 08:31 AM VA-TOBACCO FORMER USER [facility] Jul 30, 2018 08:31 AM VA-TOBACCO QUIT 15 YRS OR MORE [facility] Aug 25, 2017 08:04 AM FORMER TOBACCO USER 7Y OR GREATE R [facility] Nov 08, 2016 08:12 AM FORMER TOBACCO USER 7Y OR GREATE R [facility] Nov 29, 2015 12:46 PM FORMER TOBACCO USER 7Y OR GREATE R [facility] February 23, 2015 12:57 PM FORMER TOBACCO USER 7Y OR GREATE R [facility] January 27, 2014 10:10 AM FORMER TOBACCO USER 7Y OR GREATE R [facility] Mar 17, 2007 09:11 AM FORMER TOBACCO USER 7Y OR GREATE R [facility] Advance Directives: All historical and current Section Date Range: From patient's date of to the date document was created. This section includes ALL of a patient's completed or amended [place] Advance and Rescinded Directives. The entries below indicate that a directive exists for the patient, but an actual copy is not included with this document. The data comes from all [place] facilities. Date Advance Directives Provider Source Mar 17, 2007 ADVANCE DIRECTIVE JENNIFERALBERTO [facility] Pathology Reports: +/- 30 days of [...] the Encounter. The data comes from all [place] treatment facilities. Date/Time Pathology Report Provider Source February 09, 2024 01:57 PM LR SURGICAL PATHOL OGY REPORT: LOCAL TITLE: LR SURGICAL PATHOLOGY REPORT STANDARD TITLE: PATHOLOGY REPORT DATE OF NOTE: FEBRUARY 09, 2024@13:57:21 ENTRY DATE: FEBRUARY 09, 2024@13:57:21 AUTHOR: ADDY HENRIQUEZ COSIGNER: URGENCY: STATUS: COMPLETED $APHDR Reporting Lab: [facility] [CLIA# [id number]] [place] [address] - - - - - - - [...] - POSTOPERATIVE DIAGNOSIS: Surgeon/physician: PARRISH MURDOCK MD =-=-=-=-=-=-=-=-=-=-=-=-=-= -=-=-=-=-=-=-=-=-=-=-=-=-=- =-=-=-=-=-=-=-=-=-=-=-=-= - - - - - - - [...] of tumor. See procedure note in CPRS. /es/ ADDY HENRIQUEZ MD STAFF PATHOLOGIST Signed February 09, 2024@13:57 Performing Laboratory: Surgical Pathology Report Performed By: [facility] [CLIA# [id number]] [place] [address] $FTR - - - - - - [...] - - BETH DURAN STANDARD FORM 515 ID:[id number] SEX:M :1945 AGE: 78 LOC: PCP: Anders Cline MD /jeffry/ ADDY HENRIQUEZ MD STAFF PATHOLOGIST Signed: 02/09/2024 13:57 ADDY HENRIQUEZ [facility] February 09, 2024 01:56 PM LR SURGICAL PATHOL OGY REPORT: LOCAL TITLE: LR SURGICAL PATHOLOGY REPORT STANDARD TITLE: PATHOLOGY REPORT DATE OF NOTE: FEBRUARY 09, 2024@13:56:54 ENTRY DATE: FEBRUARY 09, 2024@13:56:54 AUTHOR: ADDY HENRIQUEZ EXP COSIGNER: URGENCY: STATUS: COMPLETED $APHDR Reporting Lab: [facility] [CLIA# [id number]] [place] [address] - - - - - - - [...] - POSTOPERATIVE DIAGNOSIS: Surgeon/physician: PARRISH MURDOCK MD =-=-=-=-=-=-=-=-=-=-=-=-=-= -=-=-=-=-=-=-=-=-=-=-=-=-=- =-=-=-=-=-=-=-=-=-=-=-=-= - - - - - - - [...] of tumor. See procedure note in CPRS. /es/ ADDY HENRIQUEZ MD STAFF PATHOLOGIST Signed February 09, 2024@13:56 Performing Laboratory: Surgical Pathology Report Performed By: [facility] [CLIA# [id number]] [place] [address] $FTR - - - - - - [...] - - BETH DURAN STANDARD FORM 515 ID:[id number] SEX:M :1945 AGE: 78 LOC: PCP: Anders Cline MD /jeffry/ ADDY HENRIQUEZ MD STAFF PATHOLOGIST Signed: 02/09/2024 13:56 ADDY HENRIQUEZ [facility] Encounter Notes: All associated encounter notes This section contains the clinical notes associated to the Encounter. Date/Time Encounter Note(s) Provider Source Jan 13, 2024 08:18 AM REPORT OF CONTACT: LOCAL TITLE: PATIENT CONTACT NOTE STANDARD TITLE: REPORT OF CONTACT DATE OF NOTE: JAN 13, 2024@08:18 ENTRY DATE: JAN 13, 2024@08:18:12 AUTHOR: LEONOR BENJAMIN EXP COSIGNER: URGENCY: STATUS: COMPLETED Patient contact Name of [place]: BETH DURAN Name/Relationship of Contact if other than [place]: Date & Time of Contact: Dec@08:18 Type of Contact: Telephone Reason for Contact: Pt called and an email was sent to dental The called the call center. [place] Please cancel the following appointment(s). They will call back to reschedule. I cancelled the appt. /jeffry/ TONY STEVE MSA ADVANCED SAP SOLUTION MANAGER CONSULTANT Signed: 01/13/2024 08:19 LEONOR BENJAMIN [facility]
--- OUTSIDE RECORDS SUMMARY | 2024-06-02 00:45 | XMS_ITS ---
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 Name Role Phone CED EPSTEIN Primary Care [...] Relationship to Policy Mar [facility] [place] [facility] ([place]NR) MEDICARE ADVANTAGE [facility] (WNR) Sep 29, 2019 [id number] ONI DURAN MON PATIENT [facility] [place] [facility] [place]NR) MEDICARE (M) [facility] (WNR) Sep 29, 2008 [id number] ONI DURAN MON PATIENT [facility] [place] [facility] [place] MEDICARE ADVANTAGE [facility] (WNR) Sep 29, 2008 [id number] ONI DURAN MON PATIENT UCARE [facility] (WNR) MEDICARE ADVANTAGE [facility] ([facility]) Sep 29, 2019 [id number] ONI DURAN PATIENT 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 Date/Time Encounter Type Encounter Description Reason Provider Source Jan 12, 2024 08:00 AM CMPLX RPR E/N/E/L 2.6-7.5 CM DERMATOLOGY ICD-10-CM C44.212 Basal cell carcinoma skin/ r ear and external auric canal PARRISH MURDOCK [facility] Encounter Template Text not used by [place] Assessments - Encounter Diagnoses This section includes the primary and secondary diagnoses documented for the Encounter. Date/Time Primary/Secondary Diagnosis Diagnosis Name Provider Source Jan 12, 2024 12:35 PM PRIMARY Basal cell carcinoma skin/ r ear and external auric canal PARRISH MURDOCK [facility] Plan of Treatment: Future Appointments (+ 6 months) and Future Tests (+/- 45 days) The Plan of Treatment section includes future care activities for the [facility] This section includes future appointments and future orders which are active, pending or scheduled. Future Appointments This section includes appointments that were scheduled to occur 6 months from the date of the Encounter, up to a maximum of 20 appointments. The data comes from all [place] treatment facilities. Appointment Date/Time Appointment Type Appointme nt Facility Name Jan 15, 2024 07:00 AM [facility] Jan 15, 2024 09:30 AM AMBULATORY - SURGERY [facility] January 28, 2024 03:00 PM [facility] NONE [facility] February 09, 2024 11:00 AM AMBULATORY - SURGERY [facility] Mar 02, 2024 12:30 PM AMBULATORY - PSYCHIATRY [facility] Mar 04, 2024 02:00 PM AMBULATORY - SURGERY [facility] Mar 04, 2024 02:30 PM AMBULATORY - SURGERY [facility] Mar 08, 2024 11:15 AM AMBULATORY - SURGERY [facility] Mar 29, 2024 02:00 PM AMBULATORY - PSYCHIATRY [facility] Apr 19, 2024 11:15 PM AMBULATORY - NONE [facility] Apr 28, 2024 02:30 PM [facility] May 11, 2024 12:42 PM [facility] May 11, 2024 05:00 PM AM[facility]ULATORY - NONE [facility] May 14, 2024 04:50 PM [facility] Active, Pending, and Scheduled Orders This section includes a listing of several types of active, pending, and scheduled orders, including clinic medications orders, diagnostic test orders, procedure orders and consult orders; where the start date of the order is 45 days before the date of the Encounter or 45 days after the date of theEncounter. The data comes from all [facility] facilities. Test Date/Time Test Type Test Details Facility Name Jan 12, 2024 12:00 AM Laboratory - Chemi stry Order BASIC METABOLIC PANEL+MG PLASMA [facility] Jan 12, 2024 12:00 AM Laboratory - Chemi stry Order HEMOGLOBIN A1C BLOOD [facility] Vital Signs: All taken on the encounter date This section contains inpatient and outpatient Vital Signs collected on the date of the Encounter. Date/Time Temperature Pulse Blood Pressure Respiratory Rate SP02 Pain Height Weight Body Mass Index Source Jan 12, 2024 08:22 AM 98.5 59 137/[address] [facility] Social History: Smoking Status (Most current) and Tobacco Use (All prior to encounter date) This section includes the most current, and the historical, smoking and tobacco- related health factors from the [place] facility where the Encounter took place. Current Smoking Status This section includes the most current smoking, or tobacco-related health factor, from the [place] facility where the Encounter took place. Date/Time Current Smoking Status Comment Facil ity Sep 10, 2023 03:30 PM VA-TOBACCO FORMER USER [facility] Tobacco Use History This section includes a history of the smoking, or tobacco-related health factors, that were collected on or before the date of the Encounter. The data comes from the [place] facility where the Encounter took place. Date/Time Smoking Status/Tobacco Use Comment F acility Sep 10, 2023 03:30 PM VA-TOBACCO QUIT 15 YRS OR MORE [facility] Jun 13, 2020 10:00 AM VA-TOBACCO FORMER USER [facility] Jun 13, 2020 10:00 AM VA-TOBACCO QUIT 15 YRS OR MORE [facility] May 20, 2019 12:18 PM VA-TOBACCO FORMER USER [facility] May 20, 2019 12:18 PM VA-TOBACCO QUIT 15 YRS OR MORE [facility] Jul 30, 2018 08:31 AM VA-TOBACCO FORMER USER [facility] Jul 30, 2018 08:31 AM VA-TOBACCO QUIT 15 YRS OR MORE [facility] Aug 25, 2017 08:04 AM FORMER TOBACCO USER 7Y OR GREATE R [facility] Nov 08, 2016 08:12 AM FORMER TOBACCO USER 7Y OR GREATE R [facility] Nov 29, 2015 12:46 PM FORMER TOBACCO USER 7Y OR GREATE R [facility] February 23, 2015 12:57 PM FORMER TOBACCO USER 7Y OR GREATE R [facility] January 27, 2014 10:10 AM FORMER TOBACCO USER 7Y OR GREATE R [facility] Mar 17, 2007 09:11 AM FORMER TOBACCO USER 7Y OR GREATE R [facility] Advance Directives: All historical and [...] Mar 17, 2007 ADVANCE DIRECTIVE ALBERTO RODRIGUEZ [facility] Pathology Reports: +/- 30 days of [...] data comes from all [place] treatment facilities. Date/Time Pathology Report Provider Source February 09, 2024 01:57 PM LR SURGICAL PATHOL OGY REPORT: LOCAL TITLE: LR SURGICAL PATHOLOGY REPORT STANDARD TITLE: PATHOLOGY REPORT DATE OF NOTE: FEBRUARY 09, 2024@13:57:21 ENTRY DATE: FEBRUARY 09, 2024@13:57:21 AUTHOR: ADDY HENRIQUEZ COSIGNER: URGENCY: STATUS: COMPLETED $APHDR Reporting Lab: [facility] [CLIA# [id number]] [place] [address] - - - - - - - [...] Performing Laboratory: Surgical Pathology Report Performed By: [facility] [CLIA# [id number]] [place] [address] $FTR - - - - - - - - - - - - - - - - - - - - - - - - - - - - - - - - - - - - - - - - (End of report) ADDY HENRIQUEZ MD gn Date February 09, 2024 - - - - - - - - - - - - - - - - - - - - - - - - - - - - - - - - - - - - - - - - BETH DURAN STANDARD FORM 515 ID:[id number] SEX:M :1945 AGE: 78 LOC: PCP: Ced Epstein MD /jeffry/ ADDY HENRIQUEZ MD STAFF PATHOLOGIST Signed: 02/09/2024 13:57 ADDY HENRIQUEZ [facility] February 09, 2024 01:56 PM LR SURGICAL PATHOL OGY REPORT: LOCAL TITLE: LR SURGICAL PATHOLOGY REPORT STANDARD TITLE: PATHOLOGY REPORT DATE OF NOTE: FEBRUARY 09, 2024@13:56:54 ENTRY DATE: FEBRUARY 09, 2024@13:56:54 AUTHOR: ADDY HENRIQUEZ EXP COSIGNER: URGENCY: STATUS: COMPLETED $APHDR Reporting Lab: [facility] [CLIA# [id number]] [place] [address] - - - - - - - [...] Performing Laboratory: Surgical Pathology Report Performed By: [facility] [CLIA# [id number]] [place] [address] $FTR - - - - - - - - - - - - - - - - - - - - - - - - - - - - - - - - - - - - - - - - (End of report) ADDY HENRIQUEZ MD gn Date February 09, 2024 - - - - - - - - - - - - - - - - - - - - - - - - - - - - - - - - - - - - - - - - BETH DURAN STANDARD FORM 515 ID:[id number] SEX:M :1945 AGE: 78 LOC: PCP: Ced Epstein MD /jeffry/ ADDY HENRIQUEZ MD STAFF PATHOLOGIST Signed: 02/09/2024 13:56 ADDY HENRIQUEZ [facility] Encounter Notes: All associated encounter notes This section contains the clinical notes associated to the Encounter. Date/Time Encounter Note(s) Provider Source Jan 27, 2024 08:34 AM ADDENDUM: LOCAL TITLE: Addendum STANDARD TITLE: ADDENDUM DATE OF NOTE: JAN 27, 2024@08:34:14 ENTRY DATE: JAN 27, 2024@08:34:15 AUTHOR: VAZQUEZ FERGUSON EXP COSIGNER: URGENCY: STATUS: COMPLETED Kim, Home Care Nurse with [facility] (p: [phone]), reports the pt is looking for [facility] surgeons opinion on having a dental procedure on the same side as 01/12/24 [facility]. Professor Of Biology informed Kim it would be up to the surgeon performing the dental procedure. Kim stated the surgeon that touched his ear can give his opinion. Professor Of Biology informed Kim the provider is out until 02/01 and would be alerted to her request. Kim inquired how long the patients conchal bowl needs to be dressed. Professor Of Biology informed Kim, per original nursing note Change dressings on conchal bowl daily or 3x/week as availability allows until site is fully healed. and no f/u was requested by [facility] surgeon. Kim was adamant the pt should be seen by [facility] surgeon, to check progress, and plans to have pts spouse call to schedule. /jeffry/ VAZQUEZ FERGUSON LPN LICENSED PRACTICAL NURSE Signed: 01/27/2024 09:11 Receipt Acknowledged By: 02/02/2024 08:57 /jeffry/ PARRISH MURDOCK MD STAFF PHYSICIAN, DERMATOLOGY --- Original Document --- 01/12/24 DERMATOLOGY [facility] NURSING NOTE: Patient Information: - Allergies: FACILITY ALLERGY/ADR -------- [facility] DOXYCYCLINE [facility] LISINOPRIL [facility] PENICILLIN [facility] SULFA DRUGS [facility] AMLODIPINE [facility] DOXYCYCLINE [facility] LISINOPRIL [facility] PENICILLIN [facility] SULFA DRUGS - Medication Reconciliation OUTPT MEDICATIONS: DRUG STATUS SIG ACCU-CHEK GUIDE (GLUCOSE) TEST STRIP ACTIVE SIG: USE 1 STRIP FOUR TIMES A DAY TO CHECK BLOOD SUGAR--USE WITHIN 3 MINUTES OF REMOVING FROM CONTAINER ALBUTEROL 90MCG (CFC-F) 200D ORAL INHL ACTIVE SIG: INHALE 2 PUFFS BY INHALATION EVERY 6 HOURS NEEDED FOR SHORTNESS OF BREATH ARTIFICIAL TEARS POLYVINYL ALCOHOL ACTIVE SIG: INSTILL 2 DROPS IN LEFT EYE EVERY 2 HOURS NEEDED FOR DRY EYES ATORVASTATIN CALCIUM 80MG TAB ACTIVE SIG: TAKE ONE TABLET BY MOUTH AT BEDTIME FOR CHOLESTEROL BISACODYL 10MG RTL SUPP ACTIVE SIG: INSERT 1 SUPPOSITORY IN RECTUM EVERY DAY NEEDED FOR CONSTIPATION CHOLECALCIF 25MCG (D3-1,000UNIT) TAB ACTIVE SIG: TAKE ONE TABLET BY MOUTH EVERY DAY FOR VITAMIN D SUPPLEMENT EMPAGLIFLOZIN 25MG TAB ACTIVE SIG: TAKE ONE TABLET BY MOUTH EVERY DAY FOR DIABETES ESCITALOPRAM OXALATE 10MG TAB ACTIVE SIG: TAKE ONE TABLET BY MOUTH EVERY DAY FOR MOOD LACTOBACILLUS ACIDOPHILUS TAB ACTIVE SIG: TAKE 2 TABLETS BY MOUTH EVERY DAY PROBIOTIC LANCET,SOFTCLIX ACTIVE SIG: USE 1 LANCET FOUR TIMES A DAY *DISPOSE OF IN A HARD-PLASTIC CONTAINER WITH A SCREW-ON LIDCONTACT GARBAGE HAULER FOR PROPER DISPOSAL LEVOTHYROXINE NA (SYNTHROID) 100MCG TAB ACTIVE SIG: TAKE ONE TABLET BY MOUTH EVERY DAY FOR THYROID LIDOCAINE 4% TOP CREAM ACTIVE SIG: APPLY MODERATE AMOUNT TOPICALLY EVERY 6 HOURS NEEDED FOR PAIN LOSARTAN 25MG TAB ACTIVE SIG: TAKE ONE TABLET BY MOUTH EVERY DAY FOR BLOOD PRESSURE MELATONIN 3MG CAP/TAB ACTIVE SIG: TAKE 1 TABLET BY MOUTH AT BEDTIME FOR SLEEP OMEPRAZOLE 20MG EC CAP ACTIVE SIG: TAKE ONE CAPSULE BY MOUTH EVERY DAY FOR STOMACH ACID POLYETHYLENE GLYCOL 3350 ORAL PWDR ACTIVE SIG: TAKE 17 GRAMS BY MOUTH EVERY DAY NEEDED FOR CONSTIPATION MIX IN 8 OUNCES OF LIQUID TORSEMIDE 10MG TAB ACTIVE SIG: TAKE ONE TABLET BY MOUTH EVERY DAY FOR EXCESS FLUID TRAZODONE HCL 50MG TAB ACTIVE SIG: TAKE ONE TABLET BY MOUTH AT BEDTIME FOR SLEEP NEEDLE,PEN 31G,8MM ACTIVE SIG: USE 1 NEEDLE UNDER THE SKIN DIRECTED *DISPOSE OF IN A HARD-PLASTIC CONTAINER WITH A SCREW-ON LID CONTACT GARBAGE HAULER FOR PROPER DISPOSAL ZINC OXIDE 20% OINT ACTIVE SIG: APPLY SMALL AMOUNT TOPICALLY THREE TIMES A DAY NEEDED FOR SKIN PROTECTION APPLY A THIN LAYER TO AFFECTED PERINEAL AREAS TOPICALLY 2-3 TIMES DAILY NEEDED. MAY DAB AND REAPPLY. DO NOT WIPE COMPLETELY OFF SKIN FOR EACH APPLICATION. INSULIN,GLARGINE 100 UNT/ML 3ML SOLOSTAR ACTIVE SIG: INJECT 25 UNITS UNDER THE SKIN AT BEDTIME FOR DIABETES INSULIN,ASPART(EQV-NOVLG)1 00UN/ML FLXPEN ACTIVE SIG: INJECT DIRECTED UNDER THE SKIN THREE TIMES A [...] TO ADMINISTRATION. MAX 36 UNITS PER DAY. SEMAGLUTIDE 1MG/0.75ML INJ PEN 3ML ACTIVE SIG: INJECT 1MG UNDER THE SKIN EVERY WEEK FOR DIABETES LIDOCAINE 5% PATCH ACTIVE SIG: APPLY 1 PATCH TOPICALLY EVERY DAY NEEDED FOR UP TO 12 HOURS FOR PAIN REMOVE AFTER 12 HOURS. MAX 1 PATCH PER 24 HOURS. SENNOSIDES 8.6MG TAB ACTIVE SIG: TAKE TWO TABLETS BY MOUTH EVERY DAY NEEDED FOR CONSTIPATION DRESS,MEPILEX BORDER FLEX 4X4IN #[id number] ACTIVE SIG: APPLY 1 DRESSING TOPICALLY EVERY DAY FOR LEFT UPPER THIGH WOUND KETOCONAZOLE 2% SHAMPOO ACTIVE SIG: SHAMPOO SCALP TOPICALLY 3 TIMES WEEKLY *LATHER FOR 5 MINUTES THEN RINSE* DEPEND UNDERWEAR,MAXIMUM,MEN LARGE ACTIVE SIG: USE 1 BRIEF THREE TIMES A DAY NEEDED FOR URINARY INCONTINENCE POISE PAD,ULTIMATE ABSORB EXTRA COVERAGE ACTIVE SIG: USE PAD TOPICALLY THREE TIMES A DAY NEEDED FOR URINARY INCONTINENCE CLEANSER,WOUND SKINTEGRITY TOP SPRAY ACTIVE SIG: SPRAY TO AFFECTED AREA TOPICALLY DIRECTED FOR WOUND CARE DRESS,HYDROGEL SPAND-GEL 8KSL7HA #[id number] ACTIVE SIG: APPLY 1 DRESSING TOPICALLY DIRECTED GAUZE PAD 4IN X 4IN 12-PLY STERILE ACTIVE SIG: USE GAUZE SPONGE GAUZE PAD 4IN X 4IN 12-PLY STERILE TOPICALLY DIRECTED KERLIX 4.5IN STERILE ACTIVE SIG: USE 1 BANDAGE TOPICALLY DIRECTED PAD,ABDOMINAL 7.5 X 8 STERILE ACTIVE SIG: USE PAD TOPICALLY DIRECTED TAPE,MEDIPORE H SOFT 4IN X 10YD #2864 ACTIVE SIG: CUT AND APPLY TAPE TOPICALLY DIRECTED APIXABAN 5MG TAB ACTIVE SIG: TAKE ONE TABLET BY MOUTH EVERY 12 HOURS TO PREVENT STROKES BUPROPION HCL 150MG 24HR SA TAB ACTIVE SIG: TAKE ONE TABLET BY MOUTH EVERY DAY FOR DEPRESSION ACETAMINOPHEN 500MG TAB ACTIVE SIG: TAKE TWO TABLETS BY MOUTH THREE TIMES A DAY NEEDED FOR PAIN LOPERAMIDE HCL 2MG CAP ACTIVE SIG: TAKE ONE CAPSULE BY MOUTH EVERY 6 HOURS NEEDED FOR DIARRHEA DIRECTED: 2 CAPSULES (4MG) AFTER 1ST LOOSE STOOL, THEN 1 CAPSULE AFTER SUBSEQUENT LOOSE STOOL IF NEEDED. MAX 8 CAPS (16MG/DAY). CARBAMIDE PEROXIDE 6.5% OTIC SOLN ACTIVE SIG: INSTILL 5-10 DROPS IN LEFT EAR TWICE A DAY FOR 4 DAYS FOR EAR WAX REMOVAL INPT MEDICATIONS:NONE No Active Remote Medications for this patient - Vitals: Temperature: 98.5 F [36.9 C] (01/12/2024 08:22) Blood Pressure: 137/78 (01/12/2024 08:22) Pulse: 59 (01/12/2024 08:22) Respiration: 16 (11/06/2023 09:55) Pain: 0 (11/06/2023 09:55) Pulse Oximetry: 97% (01/12/2024 08:22) History of artificial joints? No History of artificial heart valves? No History of stent? No History of rheumatic fever? No History of organ transplant? No Pacemaker present? No Defibrillator present? No Deep Brain Stimulator present? No Other Implantable Device present? Yes: Deactivated implanted heart monitor Physician notified. Presently taking anticoagulants? Yes apixaban (Eliquis) Not discontinued preoperatively. MD walter. /jeffry/ NÉSTOR LOOMIS DRY HOUSE OPERATOR NURSE Signed: 01/12/2024 08:25 01/12/2024 ADDENDUM STATUS: COMPLETED Post-Op: Sutured surgical site(s) on the R superior helix dressed with: gentamicin, telfa, folded gauze, medipore white tape, kerlix wrap Patient to leave dressing(s) in place, clean and dry for 3 day(s). Then patient to remove dressing(s) and begin daily dressing changes. Patient may gently clean the site and gently pat dry. Patient to cover site with gentamicin and a bandage daily until sutures are fully dissolved. Granulating surgical site(s) on the right conchal bowl dressed with: gentamicin, vaseline gauze, telfa, folded gauze, kerlix wrap Patient to leave dressing(s) in place, clean and dry for 3 day(s). Then patient to remove dressing(s) and begin daily dressing changes. Patient may gently clean the site and gently pat dry. Patient to cover site with gentamicin and a bandage daily until skin is fully healed. Kerlix wrap may be removed in 1 day(s). If the area becomes painfully tight the wrap can be removed early and the patient should contact the clinic. No other products should be used on the site(s) i.e., hydrogen peroxide, rubbing alcohol, skin oils, creams, soaps, or prescriptions until the area is completely healed. These can cause the glue or sutures to dissolve too quickly or damage the healing tissue. Education Educational Screening: Barriers to Learning/Special Needs: No Barriers Identified Teaching Strategy: 1:1 Written/printed material Instruction: Patient/family/caregiver instructed in standard Post- MOHS surgery wound care. Understanding: Patient/family/caregiver: Able to verbalize understanding Follow up teaching: None needed Bandaging material was provided to patient upon discharge. Patient to remove blue prolene sutures at home in 14 days, suture removal kit sent home with patient. Wristband Removal: Patient wristband was removed and destroyed by being placed in the shred bin. Per pt and family request a HHN consult will be placed, the following dressing change instructions will be added to that request: - Keep the site clean and dry for 14 days. - Okay to remove kerlix wrap in 2 days (pt's will remove). - Pressure dressing can be removed in 3 days. After pressure dressing removed apply gentamicin to sutures on helical rim and around / under vaseline gauze sutured to conchal bowl. Cover with telfa and secure with medical tape. Change dressings daily or 3x/week as availability allows. - Single blue prolene suture can be removed in 14 days and vaseline gauze removed. Cover conchal bowl with gentamicin and cover with telfa and tape or a band-aid. After 2 weeks no dressing needed for helical rim (okay to apply vaseline to help sutures dissolve). Change dressings on conchal bowl daily or 3x/week as availability allows until site is fully healed. - When gentamicin runs out okay to change to vaseline. - The following was sent home with patient: telfa, medical tape, band-aids, gentamicin, and vaseline. - Call the dermatology clinic [phone] if questions or further supplies needed. /jeffry/ NÉSTOR LOOMIS DRY HOUSE OPERATOR NURSE Signed: 01/12/2024 11:37 POST,VAZQUEZ Barber [facility] Jan 12, 2024 12:21 PM DERMATOLOGY PROCED URE NOTE: LOCAL TITLE: MOHS SURGERY PROCEDURE NOTE STANDARD TITLE: DERMATOLOGY PROCEDURE NOTE DATE OF NOTE: JAN 12, 2024@12:21 ENTRY DATE: JAN 12, 2024@12:22:01 AUTHOR: PARRISH MURDOCK EXP COSIGNER: URGENCY: STATUS: COMPLETED Prior to each procedure, time out was performed with the patient and the nursing staff to verify the patient and the correct site of surgery. 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 Because of its size, location and morphology Mohs surgery was indicated. After appropriate discussion and informed consent the patient underwent Mohs surgery using the fresh tissue technique as follows: STAGE I: The patient was placed supine on the operating room table. The area was infiltrated with 1% Lidocaine and epinephrine. Using a #15-blade, complete excision was made around the tumor in 1 section(s). Hemostasis was obtained by electrodessication. A dressing was placed. Tissue was divided into 1 tissue block(s) which were subsequently mapped, color coded at their margins and processed in the Mohs Laboratory. Microscopic tumor (infiltrative BCC in the subcutaneous tissue) was found in 1 of the tissue block(s). STAGE II: The patient returned to the operating room. By reference to the Mohs map, the area of positivity was delineated, infiltrated with the local anesthetic described above and excised in 1 section(s). Tissue was divided into 1 tissue block(s) that were again mapped, color coded and processed in the Mohs Laboratory. Hemostasis was obtained in the usual manner and a dressing placed. Microscopic tumor was not found in the tissue blocks. With the lesion clear of micrographic tumor, surgery was considered complete. The defect extends through the cartilage and full thickness helix. Following surgery, the defect measured 3.3 cm x 1.3 cm. After discussion with patient, the defect was reconstructed. Parrish Murdock MD, PhD [facility] Mohs/Pathology Lab Clinic 2D - Dermatology [address] [place] [id number] DERMATOLOGIC SURGERY REPORT (Site 1 of 2) NAME OF PROCEDURE: COMPLEX LAYERED LINEAR CLOSURE Surgeon: Parrish Murdock Resident: Ida DIAGNOSIS: Status post Mohs micrographic surgical excision of a basal cell carcinoma of the right ear superior helix FINAL REPAIR LENGTH: 4.2 cm INDICATIONS: The patient presents with a 3.3 cm x 1.3 cm defect on the right ear scapha following Mohs micrographic surgical excision of a BCC. The defect extended through the cartilage and full thickness helix. Based on the nature of the defect, its anatomic location, and availability of adjacent normal skin, the various reconstructive options along with the alternatives and risks of each procedure were discussed with the patient. A complex layered linear closure was selected as the procedure which would maximally preserve both function and cosmesis and for the following reasons: 1) the defect was widely undermined to 4.0 cm x 3.5 cm; 2) the wound at the free margin of helical rim. OPERATIVE REPORT: Having obtained written informed consent for a complex layered linear closure, the patient was taken to the operating room, placed on the operating room table, and the defect was identified and the borders localized. The area was cleansed with Hibiclens, sterilely draped, and local anesthesia was achieved with 1% lidocaine and epinephrine 1:100,000. Residual devitalized tissue was sharply debrided from the wound bed. The Mohs defect was debeveled and then the area was extensively and carefully undermined using blunt Metzenbaum scissors. Hemostasis was obtained with spot electrocautery and ligation of vessels where necessary. An initial deep plication sutures of 4-0 Vicryl sutures were placed in the deep, cartilage planes to appose the two margins of the Mohs defect. Two redundant cutaneous columns were then removed using a #15 blade and the triangulation technique. Hemostasis was again obtained with spot electrocautery. The epidermis was then carefully approximated along the length of the wound using 4-0 chromic gut simple interrupted and running sutures. Final repair length was 4.2 cm. Total anesthesia used was 9 ml and estimated blood loss was less than 10 ml. Appropriate post-operative wound ointment was applied to wound surface followed by a pressure dressing. The patient was discharged alert and ambulatory. Parrish Murdock MD, PhD [facility] Clinic 2D Mohs/Dermatology Clinic [address] [place] [address] Prior to each procedure, time out was performed with the patient and the nursing staff to verify the patient and the correct site of surgery. 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 Because of its size, location and morphology, Mohs surgery was indicated. After appropriate discussion and informed consent, the patient underwent Mohs surgery using the fresh tissue technique as follows: STAGE I: The patient was placed on the operating room table. The area was infiltrated with 1% lidocaine and epinephrine 1:100,000. Using a #15-blade, complete excision was made around the tumor in 1 section(s). Hemostasis was obtained by electrodessication. A dressing was placed. Tissue was divided into 1 tissue block(s) which were subsequently mapped, color coded at their margins and processed in the Mohs Laboratory. Microscopic tumor (tumor- associated inflammation in the subcutaneous tissue) was found in 1 of the tissue block(s). STAGE II: The patient returned to the operating room. By reference to the Mohs map, the area of positivity was delineated, infiltrated with the local anesthetic described above, and excised in 1 section(s). Tissue was embedded into 1 tissue block(s)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
--- OUTSIDE RECORDS SUMMARY | 2024-06-02 00:45 | XMS_ITS | Encounter Summary ---
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 ([place]) Organization [facility] Address [address] [place] [address] Care Team Providers Care Plant Superintendent Name Role Phone CED EPSTEIN Primary Care [...] HOSPITAL (WNR) MEDICARE ADVANTAGE [facility] (R) Sep 29, 2019 [id number] [phone] ONI DURAN MON PATIENT [facility] [place] [facility] (WNR) MEDICARE (M) [facility] (R) Sep 29, 2008 [id number] ONI DURAN MON PATIENT [facility] [place] [facility] (WNR) MEDICARE ADVANTAGE [facility] (WNR) Sep 29, 2008 [id number] ONI DURAN MON PATIENT [facility] (WNR) MEDICARE ADVANTAGE [facility] ([facility]) Sep 29, 2019 [id number] ONI DURAN PATIENT [facility]CR (WNR) MEDICARE ADVANTAGE [facility] (WNR) Sep 29, 2010 [id number] ONI DURAN PATIENT Selected Encounter This section includes the information on record at DC for the Encounter. Date/Time Encounter Type Encounter Description Reason Provider Source Nov 06, 2023 10:00 AM OFFICE O/P EST MOD 30 MIN ENDOCRINOLOGY ICD-10-CM E11.21 Type 2 diabetes mellitus with diabetic nephropathy RYAN PALACIO Fidencio Encounter Template Text not used by DC Assessments - Encounter Diagnoses This section includes the primary and secondary diagnoses documented for the Encounter. Date/Time Primary/Secondary Diagnosis Diagnosis Name Provider Source Nov 18, 2023 04:45 PM PRIMARY Type 2 diabetes mellitus with diabetic nephropathy MAYTE PALACIO [facility] Plan of Treatment: Future Appointments (+ 6 months) and Future Tests (+/- 45 days) The Plan of Treatment section includes future care activities for the patient [facility] This section includes future appointments and future orders which are active, pending or scheduled. Future Appointments This section includes appointments that were scheduled to occur 6 months from the date of the Encounter, up to a maximum of 20 appointments. The data comes from all [place] treatment facilities. Appointment Date/Time Appointment Type Appointme nt Facility Name Nov 11, 2023 01:30 PM AMBULATORY - SURGERY [facility] Nov 26, 2023 10:30 AM AMBULATORY - NONE [place] [facility] Jan 12, 2024 08:00 AM AMBULATORY - SURGERY [facility] Jan 12, 2024 09:00 AM AMBULATORY - NONE [place] [facility] Jan 15, 2024 07:00 AM [facility] Jan 15, 2024 09:30 AM AMBULATORY - SURGERY [facility] January 28, 2024 03:00 PM AM[place]ULATORY - NONE [place] [facility] February 09, 2024 11:00 AM AMBULATORY - SURGERY [facility] Mar 02, 2024 12:30 PM AMBULATORY - [place] [facility] Mar 04, 2024 02:00 PM AMBULATORY - SURGERY [facility] Mar 04, 2024 02:30 PM AMBULATORY - SURGERY SHO BOYD [facility] Mar 08, 2024 11:15 AM AMBULATORY - SURGERY [facility] LERMALIS [facility] Mar 29, 2024 02:00 PM AM[place] [facility] Apr 19, 2024 11:15 PM AMBULATORY - NONE FRO[place] CHOI [facility] Apr 28, 2024 02:30 PM AMBULATORY - MEDICINE [place] BOLANOS [facility] Active, Pending, and Scheduled Orders This section includes a listing of several types of active, pending, and scheduled orders, including clinic medications orders, diagnostic test orders, procedure orders and consult orders; where the start date of the order is 45 days before the date of the Encounter or 45 days after the date of theEncounter. The data comes from all [place] treatment facilities. Test Date/Time Test Type Test Details Facility Name Nov 03, 2023 12:00 AM Laboratory - Chemi stry Order BASIC METABOLIC PANEL+MG PLASMA SP ONCE [facility] Lab Results: +/- 30 days [...] Range Comment Nov 03, 2023 09:16 AM [facility] HEMOGLOBIN A1C Specimen Type: BLOOD Comment: Values [...] May 22, 2023 02:36 PM Reporting Lab: [facility] [id number] Performing Lab: [facility] [id number] HEMOGLOBIN A1C 7.3 H 4.0-6.0 Vital Signs: All taken on the encounter date This section contains inpatient and outpatient Vital Signs collected on the date of the Encounter. Date/Time Temperature Pulse Blood Pressure Respiratory Rate SP02 Pain Height Weight Body Mass Index Source Nov 06, 2023 09:55 AM 97.7 65 120/71 16 96 0 SHOAP PADDY [facility] Social History: Smoking Status (Most current) and Tobacco Use (All prior to encounter date) This section includes the most current, and the historical, smoking and tobacco- related health factors from the [place] facility where the Encounter took place. Current Smoking Status This section includes the most current smoking, or tobacco-related health factor, from the [place] facility where the Encounter took place. Date/Time Current Smoking Status Comment Facil ity Sep 10, 2023 03:30 PM VA-TOBACCO FORMER USER [facility] Tobacco Use History This section includes a history of the smoking, or tobacco-related health factors, that were collected on or before the date of the Encounter. The data comes from the [place] facility where the Encounter took place. Date/Time Smoking Status/Tobacco Use Comment F acility Sep 10, 2023 03:30 PM VA-TOBACCO QUIT 15 YRS OR MORE [facility] Jun 13, 2020 10:00 AM VA-TOBACCO FORMER USER [facility] Jun 13, 2020 10:00 AM VA-TOBACCO QUIT 15 YRS OR MORE [facility] May 20, 2019 12:18 PM VA-TOBACCO FORMER USER [facility] May 20, 2019 12:18 PM VA-TOBACCO QUIT 15 YRS OR MORE [facility] Jul 30, 2018 08:31 AM VA-TOBACCO FORMER USER [facility] Jul 30, 2018 08:31 AM VA-TOBACCO QUIT 15 YRS OR MORE [facility] Aug 25, 2017 08:04 AM FORMER TOBACCO USER 7Y OR GREATE R [facility] Nov 08, 2016 08:12 AM FORMER TOBACCO USER 7Y OR GREATE R [facility] Nov 29, 2015 12:46 PM FORMER TOBACCO USER 7Y OR GREATE R [facility] February 23, 2015 12:57 PM FORMER TOBACCO USER 7Y OR GREATE R [facility] January 27, 2014 10:10 AM FORMER TOBACCO USER 7Y OR GREATE R [facility] Mar 17, 2007 09:11 AM FORMER TOBACCO USER 7Y OR GREATE R [facility] Advance Directives: All historical and [...] Provider Source Mar 17, 2007 ADVANCE DIRECTIVE TORRESALBERTO RAYMOND [facility] Pathology Reports: +/- 30 days of [...] the Encounter. The data comes from all [place] treatment facilities. Date/Time Pathology Report Provider Source Oct 24, 2023 01:05 PM LR SURGICAL PATHOL OGY REPORT: LOCAL TITLE: LR SURGICAL PATHOLOGY REPORT STANDARD TITLE: PATHOLOGY REPORT DATE OF NOTE: OCT 24, 2023@13:05:29 ENTRY DATE: OCT 24, 2023@13:05:29 AUTHOR: JANE DE LA VEGA EXP COSIGNER: URGENCY: STATUS: COMPLETED $APHDR Reporting Lab: [facility] [CLIA# [id number]] [place] [address] - - - - - - - [...] VEGA STAFF PATHOLOGIST, PATHOLOGY & LABORATORY MED [facility] Signed Oct 24, 2023@13:05 Performing Laboratory: Surgical Pathology Report Performed By: [facility] [CLIA# [id number]] [place] [address] $FTR - - - - - - [...] - - BETH DURAN STANDARD FORM 515 ID:[id number] SEX:M :1945 AGE: 78 LOC:[id number] PCP: Ced Epstein MD /jeffry/ JANE DE LA VEGA STAFF PATHOLOGIST, PATHOLOGY & LABORATORY MED [facility] Signed: 10/24/2023 13:05 JANE DE LA VEGAEEN [facility] Encounter Notes: All associated encounter notes This section contains the clinical notes associated to the Encounter. Date/Time Encounter Note(s) Provider Source Nov 12, 2023 07:53 PM ENDOCRINOLOGY ATTE IVAN NOTE: LOCAL TITLE: METABOLIC CLINIC NOTE STANDARD TITLE: ENDOCRINOLOGY ATTENDING NOTE DATE OF NOTE: NOV 12, 2023@19:53 ENTRY DATE: NOV 12, 2023@19:53:37 AUTHOR: LONA PALACIOIGNER: URGENCY: STATUS: COMPLETED Endocrine/Metabolic Clinic Note Nursing note reviewed and agree. Following with endocrine for T2DM, 78 yo. History of Present Illness: return visit for him, reviewed and relevant history as extracted is as follows-- M with history of HTN, HL, DM2, CHF, Asthma, Depression here for follow up of his T2DM. Several months ago moved from intermediate to assisted living facility. During transition had some issues with consistent medication timing. Now getting back under control. A1C before appointment today 8.5, improved form 10.2 about 7 months ago. Facility checks glucoses 3 times a day. Per patient typically around 170-180, but does get as high as 350. Facility holds his short acting if his BG is below 120 which he reports happens routinely. He has been on Semaglutide 0.5mg weekly, had some issues with facility giving it different days of the week. Now consistently taking on Mondays. No side effects noted. [also R hemiparesis s/p 12/17 CVA] Since last seen of note is the following-- --here today with his --he is at [facility]; he hopes to be able to go home in the future Assisted living facility: [facility] [phone] -- current Diabetic meds: Empagliflozin 25mg qday Lantus 28 units qhs Ozempic 1mg qweek NovoLog 5 units w/meals hold if bg<100 sliding scale 150-199 2 units 200-249 4 units 250-299 6 units 300-349 8 units 350-399 10 units 400-500 12 units -- notes that they had to add back the 5 units Novolog with meals d/t high blood sugars. It is not clear to me whether or not the dose of semaglutide was ever actually increased to 2 mg weekly. More recently given the shortage there have been difficulties/being able to regularly take the semaglutide. We discussed that luckily, more recently the shortage seems to be lifting some --he endorsed wanting to be able to continue on semaglutide, noting that it helped curb his appetite/cravings and he is tolerating it without any issues --I reviewed with them that he has continued to have c-peptide wnl with last check w/in the last year, so the medication may be providing some appetitive control benefits, and also some glucose-dependent insulin secretory benefits contributing to good BS control, and more recently his sugars have been well controled per report w/out significant issues of lows or highs Complications--macrovasc dz (CVA) and nephropathy Past Medical History: Active problems - Computerized Problem List is the source for the followin. Hypertension (SNOMED CT 05232094) 2. Hyperlipidemia (SNOMED CT 52738882) 3. Tinnitus * 4. 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 Asthma (SNOMED CT 368676255) 6. Diabetic retinopathy (SNOMED CT 8928228) 7. Type 2 diabetes mellitus (SNOMED CT 32408938) 8. Umbilical hernia (SNOMED CT 274086376) 9. Obstructive sleep apnea (SNOMED CT 99204912) 10. Obesity * - 10 TOPIC GRAD 07-09-2012* 244.0 --> 09-17-12* 243.2 lbs 11. Anemia 12. Rosacea 13. Carcinoma of bladder - Followed by outside Urology. 14. Depression ([facility] 53057135) - prescribed by [place] for depression 15. Congestive heart failure 16. CVA - Cerebrovascular accident - 11/2020, outside hospital. - Right sided hemiparesis 17. Dysphagia as a late effect of cerebrovascular accident 18. Long-term current use of anticoagulant 19. Exposure to Agent [place] 20. Paroxysmal atrial fibrillation Allergies: PENICILLIN (Mar 17, 2007) SULFA DRUGS (Mar 17, 2007) DOXYCYCLINE (Jul 11, 2010) LISINOPRIL (Jul 22, 2011) AMLODIPINE (Nov 19, 2017) Active Outpatient Medications (including Supplies): ACCU-CHEK GUIDE [...] TAKE ONE TABLET BY MOUTH AT ACTIVE (S) BEDTIME FOR CHOLESTEROL BISACODYL 10MG RTL SUPP INSERT 1 SUPPOSITORY IN RECTUM ACTIVE EVERY DAY NEEDED FOR CONSTIPATION CALCIPOTRIENE 0.005% TOP CREAM APPLY THIN LAYER TOPICALLY ACTIVE TWICE A DAY FOR ACTINIC KERATOSIS -MIX WITH FLUOROURACIL AND USE ON SCALP AND FOREARMS FOR 5 DAYS CARBAMIDE PEROXIDE 6.5% OTIC SOLN INSTILL 5-10 DROPS IN ACTIVE BOTH EARS THREE TIMES A WEEK FOR EAR WAX REMOVAL INSTILL 10 DROPS INTO BILATERAL EARS THE NIGHT BEFORE(3X/WEEK) SHOWERS, GENTLY RINSE EARS WITH WARM WATER DURING SHOWERS 3 TIMES WEEKLY CHOLECALCIF 25MCG (D3-1,000UNIT) TAB TAKE ONE TABLET BY ACTIVE MOUTH EVERY DAY FOR VITAMIN D SUPPLEMENT CLEANSER,WOUND SKINTEGRITY TOP SPRAY SPRAY TO AFFECTED ACTIVE AREA TOPICALLY DIRECTED FOR WOUND CARE DEPEND UNDERWEAR,MAXIMUM,MEN LARGE USE 1 BRIEF THREE ACTIVE TIMES A DAY NEEDED FOR URINARY INCONTINENCE DRESS,HYDROGEL SPAND-GEL 5GLD2TK #[id number] APPLY 1 DRESSING ACTIVE TOPICALLY DIRECTED DRESS,MEPILEX BORDER FLEX 4X4IN #[id number] APPLY 1 DRESSING ACTIVE TOPICALLY EVERY DAY FOR LEFT UPPER THIGH WOUND EMPAGLIFLOZIN 25MG TAB TAKE ONE TABLET BY MOUTH EVERY DAY ACTIVE (S) FOR DIABETES ESCITALOPRAM OXALATE 10MG TAB TAKE ONE TABLET BY MOUTH ACTIVE EVERY DAY FOR MOOD FLUOROURACIL 5% CREAM APPLY TO AFFECTED AREA TOPICALLY ACTIVE TWICE A DAY FOR ACTINIC KERATOSIS -MIX WITH CALCIPOTRIENE AND APPLY TO SCALP AND FOREARMS FOR 5 DAYS GAUZE PAD 4IN X 4IN 12-PLY STERILE USE GAUZE SPONGE GAUZE ACTIVE PAD 4IN X 4IN 12-PLY STERILE TOPICALLY DIRECTED INSULIN,ASPART(EQV-NOVLG)10 0UN/ML FLXPEN INJECT ACTIVE DIRECTED UNDER THE SKIN [...] UNDER THE SKIN AT BEDTIME FOR DIABETES KERLIX 4.5IN STERILE USE 1 BANDAGE TOPICALLY DIRECTED ACTIVE KETOCONAZOLE 2% SHAMPOO SHAMPOO SCALP TOPICALLY 3 TIMES ACTIVE WEEKLY *LATHER FOR 5 MINUTES THEN RINSE* LACTOBACILLUS ACIDOPHILUS TAB TAKE 2 TABLETS BY [...] ACTIVE EVERY 6 HOURS NEEDED FOR PAIN LIDOCAINE 5% PATCH APPLY 1 PATCH TOPICALLY EVERY DAY ACTIVE NEEDED FOR UP TO 12 HOURS FOR PAIN REMOVE AFTER 12 HOURS. MAX 1 PATCH PER 24 HOURS. LOSARTAN 25MG TAB TAKE ONE TABLET BY MOUTH EVERY DAY FOR ACTIVE BLOOD PRESSURE MELATONIN 3MG CAP/TAB TAKE 1 TABLET BY MOUTH AT BEDTIME ACTIVE FOR SLEEP NEEDLE,PEN 31G,8MM USE 1 NEEDLE UNDER THE SKIN DIRECTED ACTIVE (S) *DISPOSE OF IN A HARD-PLASTIC CONTAINER WITH A SCREW-ON LID CONTACT GARBAGE HAULER FOR PROPER DISPOSAL OMEPRAZOLE 20MG EC CAP TAKE ONE CAPSULE BY MOUTH EVERY DAY ACTIVE FOR STOMACH ACID PAD,ABDOMINAL 7.5 X 8 STERILE USE PAD TOPICALLY ACTIVE DIRECTED POISE PAD,ULTIMATE ABSORB EXTRA COVERAGE USE PAD TOPICALLY ACTIVE THREE TIMES A DAY NEEDED FOR URINARY INCONTINENCE POLYETHYLENE GLYCOL 3350 ORAL PWDR TAKE 17 GRAMS BY MOUTH ACTIVE EVERY DAY NEEDED FOR CONSTIPATION MIX IN 8 OUNCES OF LIQUID SEMAGLUTIDE 1MG/0.75ML INJ PEN 3ML INJECT 1MG UNDER THE ACTIVE SKIN EVERY WEEK FOR DIABETES SENNOSIDES 8.6MG TAB TAKE TWO TABLETS BY MOUTH EVERY DAY ACTIVE NEEDED FOR CONSTIPATION TAPE,MEDIPORE H SOFT 4IN X 10YD 3M#0059 CUT AND APPLY TAPE ACTIVE TOPICALLY DIRECTED TORSEMIDE 10MG TAB TAKE ONE TABLET BY [...] WIPE COMPLETELY OFF SKIN FOR EACH APPLICATION. Review of Systems: Constitutional/endo reviewed with pertinents as above Physical Exam: Vital Signs Temp: 97.7 F [36.5 C] (11/06/2023 09:55) B/P: 120/71 (11/06/2023 09:55) Pulse: 65 (11/06/2023 09:55) Ht: Unavailable (11/06/2023 09:55) Wt: Unavailable (11/06/2023 09:55) Pain: 0 (11/06/2023 09:55) BMI: BMI not available without height General: NAD, resting comfortably in motorized reclining wheelchair Labs: 07/08/2023 13:48 WBC BLOOD 6.28 K/cmm 4.0 11.0 07/08/2023 13:48 RBC BLOOD 4.13 L M/cmm 4.6 6.2 07/08/2023 13:48 HGB BLOOD 11.9 L g/dL 13.5 17.9 07/08/2023 13:48 HCT BLOOD 36.2 L % 41 54 07/08/2023 13:48 MCV BLOOD 87.7 fL 80 100 07/08/2023 13:48 MCH BLOOD 28.8 pg 27 33 07/08/2023 13:48 MCHC BLOOD 32.9 g/dL 32.0 37.5 07/08/2023 13:48 RDW BLOOD 15.3 H % 11.5 14.5 07/08/2023 13:48 PLT BLOOD 264 K/cmm 150 400 07/08/2023 13:48 MPV BLOOD 9.1 fL 7.4 10.4 07/08/2023 13:48 EGFRCKD PLASMA 51 L 60 07/08/2023 13:48 SODIUM PLASMA 137 mmol/L 136 145 07/08/2023 13:48 POTASSIUM PLASMA 4.7 mmol/L 3.5 5.1 07/08/2023 13:48 CHLORIDE PLASMA 105 mmol/L 98 107 07/08/2023 13:48 CO2 PLASMA 23 mmol/L 22 29 07/08/2023 13:48 ANION GAP PLASMA 9 mmol/L 5 15 07/08/2023 13:48 GLUCOSE PLASMA 373 H mg/dL 70 100 07/08/2023 13:48 UREA NITROGEN PLASMA 28 H mg/dL 8 26 07/08/2023 13:48 CREATININE PLASMA 1.4 H mg/dL 0.7 1.2 07/08/2023 13:48 CALCIUM PLASMA 8.9 mg/dL 8.4 10.2 07/08/2023 13:48 MAGNESIUM PLASMA 2.2 mg/dL 1.6 2.6 05/22/2023 08:38 ALBUMIN,UR URINE 34.9 H mg/L 29.9 05/22/2023 08:38 CREA UR URINE 43.1 L mg/dL 58.0 161.0 05/22/2023 08:38 ALB/CREAT RATIO,UR URINE 81.0 H mg/g creat 29.9 05/22/2023 08:37 HEMOGLOBIN A1C BLOOD 8.5 H % 4.0 6.0 Assessment and Plan #T2DM continued improvement in Hba1c down from 8.5 last visit (do need to keep in note the low Hb, not a new issue but important in interpretation),and goal for him is 8. At present will continue with current DM meds --planning RTC about 6 mo, labs in the interim in a couple of mo, and on return time spent--total time spent 30 min (combined F2F visit with previsit prep and post visit follow up care/charting) /es/ LONA PALACIO MD PHYSICIAN Signed: 11/18/2023 16:45 LONA PALACIO [facility] Nov 06, 2023 09:56 AM INTERNAL MEDICINE OUTPATIENT NOTE: LOCAL TITLE: MEDICINE CLINIC NURSING NOTE STANDARD TITLE: INTERNAL MEDICINE OUTPATIENT NOTE DATE OF NOTE: NOV 06, 2023@09:56 ENTRY DATE: NOV 06, 2023@09:56:06 AUTHOR: TEQUILA,JAMES C EXP COSIGNER: URGENCY: STATUS: COMPLETED TYPE OF VISIT: Appointment Check In Type of appointment: In-person appointment REASON FOR VISIT: rtc ALLERGIES: PENICILLIN (Mar 17, 2007) SULFA DRUGS (Mar 17, 2007) DOXYCYCLINE (Jul 11, 2010) LISINOPRIL (Jul 22, 2011) AMLODIPINE (Nov 19, 2017) VITAL SIGNS: Blood Pressure: 120/71 (11/06/2023 09:55) Pulse: 65 (11/06/2023 09:55) Respiration: 16 (11/06/2023 09:55) Temperature: 97.7 F [36.5 C] (11/06/2023 09:55) Weight: Unavailable (11/06/2023 09:55) Height: Unavailable (11/06/2023 09:55) BMI: BMI not available without height O2 Sat: 96% (11/06/2023 09:55) Pain: 0 (11/06/2023 09:55) PAIN SCREEN: Patient is not having significant pain that they wish to discuss with their provider today. MEDICATION Over the Counter/Herbal Medications: The patient denies taking any outside medications or herbals. Diabetes/Metabolic Clinic Glucometer: [place] did not bring glucometer to appointment /jeffry/ JAMES MANDEL LPN, LPN Signed: 11/06/2023 09:57 JAMES MANDEL [facility]
--- OUTSIDE RECORDS SUMMARY | 2024-06-02 00:45 | XMS_ITS | Encounter Summary ---
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 [place] Organization [facility] [place] Address [address] [place] [address] Care Team Providers Care Rounder And Backer Name Role Phone CED EPSTEIN Primary Care [...] Relationship to Policy Mar [facility] [place] [facility] (WNR) MEDICARE ADVANTAGE [facility] (R) Sep 29, 2019 [id number] ONI DURAN MON PATIENT [facility] [place] [facility] (WNR) MEDICARE (M) [facility] (R) Sep 29, 2008 [id number] ONI DURAN MON PATIENT [facility] [place] [facility] (WNR) MEDICARE ADVANTAGE [facility] (WNR) Sep 29, 2008 [id number] ONI DURAN MON PATIENT [facility] (WNR) MEDICARE ADVANTAGE [facility] ([facility]) Sep 29, 2019 [id number] ONI DURAN PATIENT [facility] (WNR) MEDICARE ADVANTAGE [facility] (WNR) Sep 29, 2010 [id number] ONI DURAN PATIENT Selected Encounter This section includes the information on record at [place] for the Encounter. Date/Time Encounter Type Encounter Description Reason Provider Source Nov 03, 2023 10:30 AM OFFICE O/P EST MOD 30 MIN CARDIOLOGY ICD-10-CM I48.0 Paroxysmal atrial fibrillation RICKIE PELAYO [facility] Encounter Template Text not used by [place] Assessments - Encounter Diagnoses This section includes the primary and secondary diagnoses documented for the Encounter. Date/Time Primary/Secondary Diagnosis Diagnosis Name Provider Source Nov 04, 2023 10:25 AM PRIMARY Paroxysmal atrial fibrillation GITA,WAYN Jason [facility] Nov 04, 2023 10:25 AM SECONDARY Cerebral infarction, unspecified [facility] Nov 04, 2023 10:25 AM SECONDARY intermediate manager (current) use [facility]agul[facility] Plan of Treatment: Future Appointments (+ 6 months) and Future Tests (+/- 45 days) The Plan of Treatment section includes future care activities for the patient from all [place] [facility]. This section includes future appointments and future orders which are active, pending or scheduled. Future Appointments This section includes appointments that were scheduled to occur 6 months from the date of the Encounter, up to a maximum of 20 appointments. The data comes from all [place] treatment facilities. Appointment Date/Time Appointment Type Appointme nt Facility Name Nov 06, 2023 10:00 AM AMBULATORY - [place]IC[place] [facility] Nov 06, 2023 02:00 PM AMBULATORY - [place] [facility] Nov 11, 2023 01:30 PM AMBUL[place]ORY - [place] [facility] Nov 26, 2023 10:30 AM AMBUL[place]ORY - NONE [place] [facility] Jan 12, 2024 08:00 AM AMBULATORY - [place] [facility] Jan 12, 2024 09:00 AM AMBULATORY - NONE [place] [facility] Jan 15, 2024 07:00 AM AM[place]UL[place]ORY - [place]ONE [place] [facility] Jan 15, 2024 09:30 AM [facility] [place] [facility] January 28, 2024 03:00 PM AMBUL[facility] - NONE [place] [facility] February 09, 2024 11:00 AM AMBULATORY - SURGERY [facility] Mar 02, 2024 12:30 PM [facility] Mar 04, 2024 02:00 PM [facility]BULAT[facility] - SURGERY [facility] Mar 04, 2024 02:30 PM AMBULATORY - SURGERY [facility] Mar 08, 2024 11:15 AM AMBULATORY - SURG[facility] Mar 29, 2024 02:00 PM [facility] [place] [facility] Apr 19, 2024 11:15 PM [facility] Apr 28, 2024 02:30 PM [facility] Active, Pending, and Scheduled Orders This section [...] Order BASIC METABOLIC PANEL+MG PLASMA SP ONCE [facility] Lab Results: +/- 30 days of the encounter This section includes the Chemistry and Hematology Lab Results on record with [place] for the patient. Radiology Reports and Pathology Reports are provided separately, in subsequent sections. Lab Results This section contains the Chemistry/Hematology Results that were resulted 30 days before or 30 daysafter the date of the Encounter. Date/Time Source Result Type Result - Unit Interpretation Reference Range Comment Nov 03, 2023 09:16 AM [facility] HEMOGLOBIN A1C Specimen Type: BLOOD Comment: [...] May 22, 2023 02:36 PM Reporting Lab: [facility] [address] [id number] Performing Lab: [facility] [id number] HEMOGLOBIN A1C 7.3 H 4.0-6.0 Vital Signs: All taken on the encounter date This section contains inpatient and outpatient Vital Signs collected on the date of the Encounter. Date/Time Temperature Pulse Blood Pressure Respiratory Rate SP02 Pain Height Weight Body Mass Index Source Nov 03, 2023 09:43 AM 58 /min 140/74 mm[Hg] 18 /min 97 % 0 [place] [facility] Social History: Smoking Status (Most [...] 10, 2023 03:30 PM VA-TOBACCO FORMER USER [facility] Tobacco Use History This section includes a history of the smoking, or tobacco-related health factors, that were collected on or before the date of the Encounter. The data comes from the [place] facility where the Encounter took place. Date/Time Smoking Status/Tobacco Use Comment F acility Sep 10, 2023 03:30 PM VA-TOBACCO QUIT 15 YRS OR MORE [facility] Jun 13, 2020 10:00 AM VA-TOBACCO FORMER USER [facility] Jun 13, 2020 10:00 AM VA-TOBACCO QUIT 15 YRS OR MORE [facility] May 20, 2019 12:18 PM VA-TOBACCO FORMER USER [facility] May 20, 2019 12:18 PM VA-TOBACCO QUIT 15 YRS OR MORE [facility] Jul 30, 2018 08:31 AM VA-TOBACCO FORMER USER [facility] Jul 30, 2018 08:31 AM VA-TOBACCO QUIT 15 YRS OR MORE [facility] Aug 25, 2017 08:04 AM FORMER TOBACCO USER 7Y OR GREATE R [facility] Nov 08, 2016 08:12 AM FORMER TOBACCO USER 7Y OR GREATE R [facility] Nov 29, 2015 12:46 PM FORMER TOBACCO USER 7Y OR GREATE R [facility] February 23, 2015 12:57 PM FORMER TOBACCO USER 7Y OR GREATE R [facility] January 27, 2014 10:10 AM FORMER TOBACCO USER 7Y OR GREATE R [facility] Mar 17, 2007 09:11 AM FORMER TOBACCO USER 7Y OR GREATE R [facility] Advance Directives: All historical and [...] Mar 17, 2007 ADVANCE DIRECTIVE ROWENAALBERTO SHEARER SHOLORIE THOMASON [facility] Pathology Reports: +/- 30 days [...] COSIGNER: URGENCY: STATUS: COMPLETED $APHDR Reporting Lab: [facility] [CLIA# [id number]] [place] [address] - - - - - - - [...] - - - POSTOPERATIVE DIAGNOSIS: Surgeon/physician: STEF ANOTINE =-=-=-=-=-=-=-=-=-=-=-=-=- =-=-=-=-=-=-=-=-=-=-=-=-=- =-=-=-=-=-=-=-=-=-=-=-=-=- = - - - [...] VEGA STAFF PATHOLOGIST, PATHOLOGY & LABORATORY MED [facility] Signed Oct 24, 2023@13:05 Performing Laboratory: Surgical Pathology Report Performed By: [facility] [CLIA# [id number]] [place] [address] $FTR - - - - - - - - - - - - - - - - - - - - - - - - - - - - - - - - - - - - - - - - (End of report) JANE DE LA VEGA MD s Date Oct 24, 2023 - - - - - - - - - - - - - - - - - - - - - - - - - - - - - - - - - - - - - - - - BETH DURAN STANDARD FORM 515 ID:[id number] SEX:M :1945 AGE: 78 LOC:[id number] PCP: Ced Epstein MD /jeffry/ JANE DE LA VEGA STAFF PATHOLOGIST, PATHOLOGY & LABORATORY MED [facility] Signed: 10/24/2023 13:05 JANE DE LA VEGA [facility] Encounter Notes: All associated encounter notes This section contains the clinical notes associated to the Encounter. 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 Duran is an 78 year old with the above stated pmh who is seen in clinic today for follow up. Mr. Duran was last seen in clinic on 02/03/23 and at the time his IRL (implanted s/o his 11/2021 CVA) result was notable for AFib with the longest duration of 40min along with some shorter duration of 6 mins. He wa started on Apixaban for anticoagulation at the time and he is seen in clinic today for follow up. Today, he reports that he is doing well overall with no palpitaitons, dizziness, lightheadedness, or chest pain. He have not had any further TIA or CVA symptoms. He feels his exercise and activity tolerance is better than before. His right sided deficits is persistent in his right upper extremity with complete motor deficit in the right arm but he reports of slight increase in right leg motor function. He has been taking his Apixaban religiously and is tolerating it well (has slight increase in duration of bleeing with skin bruises but he reports this is tolerable). Assessment and Plan 1) Paroxysmal AFib Overall patient is doing well with no immediate concern from the cardiovascular stanpoint at this time. His EKG in clinic today showed that he is in AFib with a ventricular rate of 60 bpm. We discussed the possibility of removing his ILR but patient opted to leave is in place at this time. - Continue Apixaban 5 mg bid (of note patient is 78 yrs old but he reported that his weight from 2 days ago was 184 lbs and his most recent creatinine was 1.4 from 06/2023, thus this dose of Apixaban is still appropriate). - RTC in one year for follow up with BMP Patient seen and case discussed with my attending physician Dr. Pelayo who agrees with the plan Harper Shah MD,PhD Platform Consultant Pager: [phone] Physical Examination Temperature: 98.5 F [36.9 C] (10/21/2023 14:36) Blood Pressure: 140/74 (11/03/2023 09:43) Pulse: 58 (11/03/2023 09:43) Respiration: 18 (11/03/2023 09:43) Pain: 0 (11/03/2023 09:43) Measurement DT WEIGHT LB(KG)[BMI] 11/03/2023 09:43 Unavailable 05/22/2023 08:55 Unavailable 03/20/2023 11:03 Unavailable Constitutional: sitting in his motorized wheel chair, comfortable, in NAD Eyes: no reddness, no arcus Ears, Nose, Throat: No trauma or obvious signs of infection, slight crusted blood on pinna Cardiovascular: RR, irregular rhythm, JVP normal, no edema Respiratory: Clear to ausculation Gastrointestinal:abdomen soft, non-tender, no masses Musculoskeletal: Normal strength and muscle tone Skin: no errhythema Neuro: Grossly intact with no focal neurologic deficits Psych: Normal affect, mood Smoking status: none Active problems - Computerized Problem List is the source for the followin. Hypertension (SNOMED CT 82306026) 2. Hyperlipidemia (SNOMED CT 22166116) 3. Tinnitus * 4. 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 Asthma (SNOMED CT 492100833) 6. Diabetic retinopathy (SNOMED CT 3415920) 7. Type 2 diabetes mellitus (SNOMED CT 64816168) 8. Umbilical hernia (SNOMED CT 682622719) 9. Obstructive sleep apnea (SNOMED CT 62148081) 10. Obesity * - 10 TOPIC GRAD 07-09-2012* 244.0 --> 09-17-12* 243.2 lbs 11. Anemia 12. Rosacea 13. Carcinoma of bladder - Followed by outside Urology. 14. Depression ([facility] [id number]) - prescribed by [facility] for depression 15. Congestive heart failure 16. CVA - Cerebrovascular accident - 11/2020, outside hospital. - Right sided hemiparesis 17. Dysphagia as a late effect of cerebrovascular accident 18. Long-term current use of anticoagulant 19. Exposure to Agent Sebastian Allergies: PENICILLIN (Mar 17, 2007) SULFA DRUGS (Mar 17, 2007) DOXYCYCLINE (Jul 11, 2010) LISINOPRIL (Jul 22, 2011) AMLODIPINE (Nov 19, 2017) Medications: Active Outpatient Medications (including Supplies): ACCU-CHEK GUIDE [...] MOUTH EVERY DAY FOR VITAMIN D SUPPLEMENT DEPEND UNDERWEAR,MAXIMUM,MEN LARGE USE 1 BRIEF THREE ACTIVE TIMES A DAY NEEDED FOR URINARY INCONTINENCE DEPEND UNDERWEAR,MAXIMUM,MEN LARGE USE 1 BRIEF THREE PENDING TIMES A DAY NEEDED DRESS,MEPILEX BORDER FLEX 4X4IN #901294 APPLY 1 DRESSING ACTIVE TOPICALLY EVERY DAY [...] TO SCALP AND FOREARMS FOR 5 DAYS INSULIN,ASPART(EQV-NOVLG)100 UN/ML FLXPEN INJECT ACTIVE DIRECTED UNDER [...] UNDER THE SKIN AT BEDTIME FOR DIABETES KETOCONAZOLE 2% SHAMPOO SHAMPOO SCALP TOPICALLY 3 [...] MOUTH EVERY DAY ACTIVE FOR STOMACH ACID POISE PAD,ULTIMATE ABSORB EXTRA COVERAGE USE PAD TOPICALLY ACTIVE THREE TIMES A DAY NEEDED FOR URINARY INCONTINENCE POISE PAD,ULTIMATE ABSORB EXTRA COVERAGE USE PAD TOPICALLY PENDING THREE TIMES A DAY NEEDED POLYETHYLENE GLYCOL 3350 ORAL PWDR TAKE 17 [...] WIPE COMPLETELY OFF SKIN FOR EACH APPLICATION. LABS: UREA NITROGEN 28 H (07/08/23) CREATININE 1.4 H (07/08/23) GLUCOSE 373 H (07/08/23) SODIUM 137 (07/08/23) CHLORIDE 105 (07/08/23) POTASSIUM 4.7 (07/08/23) CO2 23 (07/08/23) Collection DT Specimen Test Name Result Units Ref Range 07/08/2023 13:48 PLASMA .CREAT EGFR(CKD-E 51 L Ref: >=60 No data available No data available CBC: .RETHE: 34.1 (08/02/14) 34.4 (08/02/14) HCT: 34.5 (05/22/23) 36.2 (07/08/23) HGB: 11.4 (05/22/23) 11.9 (07/08/23) MCH: 28.9 (05/22/23) 28.8 (07/08/23) MCHC: 33.0 (05/22/23) 32.9 (07/08/23) MCV: 87.6 (05/22/23) 87.7 (07/08/23) MPV: 8.8 (05/22/23) 9.1 (07/08/23) PLT: 237 (05/22/23) 264 (07/08/23) RBC: 3.94 (05/22/23) 4.13 (07/08/23) RDW: 14.4 (05/22/23) 15.3 (07/08/23) WBC: 6.86 (05/22/23) 6.28 (07/08/23) CHOLESTEROL____ HDL____ LDL CALCULATION____ LDL Measured: TRIGLYCERIDE____ SGOT 14 (03/26/23) SGPT 13 (03/26/23) TSH ____ The results and significance of today's testing was discussed with the patient in lay terms. 50% of this minute session was spent counseling the patient and coordinating care. /jeffry/ PHYLLIS SHAH MD RESIDENT Signed: 11/03/2023 13:46 Receipt Acknowledged By: 11/04/2023 10:25 /jeffry/ ABHINAV PELAYO STAFF PHYSICIAN 11/04/2023 ADDENDUM STATUS: COMPLETED Staff: Patient was seen and examined with Dr. Shah. I have confirmed or was present for the details of the history of present illness, past medical history, family history, social history and review of systems. I have no additional physical exam findings to report. Pertinent laboratory, imaging, ECGs, telemetry data were personally reviewed. A/P: -Paroxysmal afib -prior CVA Continue apixaban. Will need routine f/u labs. The assessment and plans outlined reflect our joint assessment and decision making. The plans, as well as the reasons for the planss, were reviewed in detail with the patient. When asked patient voiced no further questions or concerns. Abhinav Pelayo MD Staff EP/Cardiology /jeffry/ ABHINAV PELAYO STAFF PHYSICIAN Signed: 11/04/2023 10:28 LUISHAYDER FLORES Anna Marie [facility] Nov 03, 2023 09:46 AM INTERNAL MEDICINE OUTPATIENT NOTE: LOCAL TITLE: MEDICINE CLINIC NURSING NOTE STANDARD TITLE: INTERNAL MEDICINE OUTPATIENT NOTE DATE OF NOTE: NOV 03, 2023@09:46 ENTRY DATE: NOV 03, 2023@09:46:34 AUTHOR: KELLY WAGONER EXP COSIGNER: URGENCY: STATUS: COMPLETED TYPE OF VISIT: Appointment Check In Type of appointment: In-person appointment REASON FOR VISIT: scheduled visit ALLERGIES: PENICILLIN (Mar 17, 2007) SULFA DRUGS (Mar 17, 2007) DOXYCYCLINE (Jul 11, 2010) LISINOPRIL (Jul 22, 2011) AMLODIPINE (Nov 19, 2017) VITAL SIGNS: Blood Pressure: 140/74 (11/03/2023 09:43) Pulse: 58 (11/03/2023 09:43) Respiration: 18 (11/03/2023 09:43) Temperature: 98.5 F [36.9 C] (10/21/2023 14:36) Weight: Unavailable (11/03/2023 09:43) Height: Unavailable (11/03/2023 09:43) BMI: BMI not available without height O2 Sat: 97% (11/03/2023 09:43) Pain: 0 (11/03/2023 09:43) PAIN SCREEN: Patient is not having significant pain that they wish to discuss with their provider today. MEDICATION Over the Counter/Herbal Medications: The patient denies taking any outside medications or herbals. /jeffry/ KELLY WAGONER LPN LPN Signed: 11/03/2023 09:47 KELLY WAGONER [facility]
--- OUTSIDE RECORDS SUMMARY | 2024-06-02 00:46 | XMS_ITS | Encounter Summary ---
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 Organization [facility] Address [address] [place] [address] Care Team Providers Care Vocational Training Instructor Name Role Phone LUCIANCED Primary Care Provider [...] Relationship to Policy Mar [facility] [place] [facility] (WNR) MEDICARE [facility] Sep 29, 2019 [id number] ONI DURAN MON PATIENT [facility] [place] [facility] (WNR) MEDICARE (M) [facility] (R) Sep 29, 2008 [id number] RENEE,SI MON PATIENT [facility] [place] [facility] (WNR) MEDICARE ADVANTAGE [facility] (R) Sep 29, 2008 [id number] RENEE,SI MON PATIENT [facility] (WNR) MEDICARE [facility] Sep 29, 2019 [id number] ONI DURAN PATIENT [facility] [place] [facility] (WNR) MEDICARE ADVANTAGE [facility] (WNR) Sep 29, 2010 [id number] [facility] ONI DURAN PATIENT Selected Encounter This section includes the information on record at [place] for the Encounter. Date/Time Encounter Type Encounter Description Reason Provider Source Mar 08, 2024 03:56 PM Outpatient Encounter EVENT (HISTORICAL) FELIPE CABRERA Fidencio Encounter Template Text not used by [place] Plan of Treatment: Future Appointments (+ 6 months) and Future Tests (+/- 45 days) The Plan of Treatment section includes future care activities for the patient from all [place] [facility]. This section includes future appointments and future orders which are active, pending or scheduled. Future Appointments This section includes appointments that were scheduled to occur 6 months from the date of the Encounter, up to a maximum of 20 appointments. The data comes from all [facility]. Appointment Date/Time Appointment Type Appointme nt Facility Name Mar 29, 2024 02:00 PM [facility] Apr 19, 2024 11:15 PM AM[facility]ORY - NONE [facility] Apr 28, 2024 02:30 PM AMBULATORY - MEDICINE [facility] May 11, 2024 12:42 PM AMBULATORY - MEDICINE [facility] May 11, 2024 05:00 PM [facility] May 14, 2024 04:50 PM AMBULATORY - NONE [facility] Active, Pending, and Scheduled Orders This section includes a listing of several types of active, pending, and scheduled orders, including clinic medications orders, diagnostic test orders, procedure orders and consult orders; where the start date of the order is 45 days before the date of the Encounter or 45 days after the date of theEncounter. The data comes from all [facility]. Test Date/Time Test Type Test Details Facility Name Apr 05, 2024 12:00 AM Laboratory - Chemi stry Order ALT/SGPT PLASMA SP [facility] Apr 05, 2024 12:00 AM Laboratory - Chemi stry Order AST/SGOT PLASMA SP [facility] Apr 05, 2024 12:00 AM Laboratory - Chemi stry Order CBC BLOOD SP ONCE [facility] Apr 05, 2024 12:00 AM Laboratory - Chemi stry Order BASIC METABOLIC PANEL+MG PLASMA SP [facility] Vital Signs: All taken on the encounter date This section contains inpatient and outpatient Vital Signs collected on the date of the Encounter. Date/Time Temperature Pulse Blood Pressure Respiratory Rate SP02 Pain Height Weight Body Mass Index Source Mar 08, 2024 11:10 AM 98 76 164/87 SHIVA THOMASON [facility] Social History: Smoking Status (Most current) and Tobacco Use (All prior to encounter date) This section includes the most current, and the historical, smoking and tobacco- related health factors from the [facility] where the Encounter took place. Current Smoking Status This section includes the most current smoking, or tobacco-related health factor, from the [place] facility where the Encounter took place. Date/Time Current Smoking Status Comment Facil ity Sep 10, 2023 03:30 PM [place]-TOBACCO QUIT [address] [facility] Tobacco Use History This section includes a history of the smoking, or tobacco-related health factors, that were collected on or before the date of the Encounter. The data comes from the [place] facility where the Encounter took place. Date/Time Smoking Status/Tobacco Use Comment F acility Sep 10, 2023 03:30 PM VA-TOBACCO QUIT [address] [facility] Jun 13, 2020 10:00 AM VA-TOBACCO FORMER USER [facility] Jun 13, 2020 10:00 AM VA-TOBACCO QUIT [address] [facility] May 20, 2019 12:18 PM VA-TOBACCO FORMER USER [facility] May 20, 2019 12:18 PM VA-TOBACCO QUIT [address] [facility] Jul 30, 2018 08:31 AM VA-TOBACCO FORMER USER [facility] Jul 30, 2018 08:31 AM VA-TOBACCO QUIT [address] [facility] Aug 25, 2017 08:04 AM FORMER TOBACCO USER 7Y OR GREATE R [facility] Nov 08, 2016 08:12 AM FORMER TOBACCO USER 7Y OR GREATE R [facility] Nov 29, 2015 12:46 PM FORMER TOBACCO USER 7Y OR GREATE R [facility] February 23, 2015 12:57 PM FORMER TOBACCO USER 7Y OR GREATE R [facility] January 27, 2014 10:10 AM FORMER TOBACCO USER 7Y OR GREATE R [facility] Mar 17, 2007 09:11 AM FORMER TOBACCO USER 7Y OR GREATE R [facility] Advance Directives: All historical and current Section Date Range: From patient's date of to the date document was created. This section includes ALL of a patient's completed or amended [place] Advance and Rescinded Directives. The entries below indicate that a directive exists for the patient, but an actual copy is not included with this document. The data comes from all [place] facilities. Date Advance Directives Provider Source Mar 17, 2007 ADVANCE DIRECTIVE ROWENAALBERTO SHEARER SHOLORIE RIPSHELBY [facility] Pathology Reports: +/- 30 days of [...] the Encounter. The data comes from all [place] treatment facilities. Date/Time Pathology Report Provider Source Mar 08, 2024 03:56 PM LR SURGICAL PATHOL OGY REPORT: LOCAL TITLE: LR SURGICAL PATHOLOGY REPORT STANDARD TITLE: PATHOLOGY REPORT DATE OF NOTE: MAR 08, 2024@15:56:47 ENTRY DATE: MAR 08, 2024@15:56:47 AUTHOR: FELIPE CABRERA EXP COSIGNER: URGENCY: STATUS: COMPLETED $APHDR Reporting Lab: [facility] [CLIA# [id number]] [place] [address] - - - - - - - [...] 0.2 cm. The specimen is inked. CE. Guerra)Kiran MICROSCOPIC DESCRIPTION: Microscopic examination performed. [facility]. Diagnosis: Skin, Right preauricular cheek shave, biopsy-- - Sebaceous adenoma. /jeffry/ FELIPE CABRERA STAFF PATHOLOGIST Signed Mar 08, 2024@15:56 Performing Laboratory: Surgical Pathology Report Performed By: [facility] [CLIA# [id number]] [place] [address] $FTR - - - - - - - - - - - - - - - - - - - - - - - - - - - - - - - - - - - - - - - - (End of report) FELIPE CABRERA MD [facility] Date Mar 05, 2024 - - - - - - - - - - - - - - - - - - - - - - - - - - - - - - - - - - - - - - - - BETH DURAN STANDARD FORM 515 ID:[id number] SEX:M :1945 AGE: 78 LOC:1068 PCP: Ced Cline MD /jeffry/ FELIPE CABRERA STAFF PATHOLOGIST Signed: 03/08/2024 15:[address] [facility] February 09, 2024 01:57 PM LR SURGICAL PATHOL OGY REPORT: LOCAL TITLE: LR SURGICAL PATHOLOGY REPORT STANDARD TITLE: PATHOLOGY REPORT DATE OF NOTE: FEBRUARY 09, 2024@13:57:21 ENTRY DATE: FEBRUARY 09, 2024@13:57:21 AUTHOR: ADDY HENRIQUEZ COSIGNER: URGENCY: STATUS: COMPLETED $APHDR Reporting Lab: [facility] [CLIA# [id number]] [place] [address] - - - - - - - [...] Performing Laboratory: Surgical Pathology Report Performed By: [facility] [CLIA# [id number]] [place] [address] $FTR - - - - - - [...] - - - - - - - BEHT DURAN STANDARD FORM 515 ID:[id number] SEX:M :1945 AGE: 78 LOC: PCP: Ced Cline MD /jeffry/ ADDY HENRIQUEZ MD STAFF PATHOLOGIST Signed: 02/09/2024 13:[address] [facility] February 09, 2024 01:56 PM LR SURGICAL PATHOL OGY REPORT: LOCAL TITLE: LR SURGICAL PATHOLOGY REPORT STANDARD TITLE: PATHOLOGY REPORT DATE OF NOTE: FEBRUARY 09, 2024@13:56:54 ENTRY DATE: FEBRUARY 09, 2024@13:56:54 AUTHOR: ADDY HENRIQUEZ EXP COSIGNER: URGENCY: STATUS: COMPLETED $APHDR Reporting Lab: [facility] [CLIA# [id number]] [place] [address] - - - - - - - [...] Performing Laboratory: Surgical Pathology Report Performed By: [facility] [CLIA# [id number]] [place] [address] $FTR - - - - - - [...] - - BETH DURAN STANDARD FORM 515 ID:[id number] SEX:M :1945 AGE: 78 LOC: PCP: Ced Cline MD /jeffry/ ADDY HENRIQUEZ MD STAFF PATHOLOGIST Signed: 02/09/2024 13:[address] [facility] Encounter Notes: All associated encounter notes This section contains the clinical notes associated to the Encounter. Date/Time Encounter Note(s) Provider Source Mar 08, 2024 03:56 PM PATHOLOGY REPORT: LOCAL TITLE: LR SURGICAL PATHOLOGY REPORT STANDARD TITLE: PATHOLOGY REPORT DATE OF NOTE: MAR 08, 2024@15:56:47 ENTRY DATE: MAR 08, 2024@15:56:47 AUTHOR: FELIPE CABRERA EXP COSIGNER: URGENCY: STATUS: COMPLETED $APHDR Reporting Lab: [facility] [CLIA# [id number]] [place] [address] - - - - - - - [...] - - - PATHOLOGY REPORT Accession No. [id number] - - - - - [...] CE. (D)SMcCoy MICROSCOPIC DESCRIPTION: Microscopic examination performed. [facility]. Diagnosis: Skin, Right preauricular cheek shave, biopsy-- - Sebaceous adenoma. /jeffry/ FELIPE CABRERA STAFF PATHOLOGIST Signed Mar 08, 2024@15:56 Performing Laboratory: Surgical Pathology Report Performed By: [facility] [CLIA# [id number]] [place] [address] $FTR - - - - - - - - - - - - - - - - - - - - - - - - - - - - - - - - - - - - - - - - (End of report) FELIPE CABRERA MD [facility] Date Mar 05, 2024 - - - - - - - - - - - - - - - - - - - - - - - - - - - - - - - - - - - - - - - - BTEH DURAN STANDARD FORM 515 ID:[id number] SEX:M :1945 AGE: 78 LOC:1068 PCP: Ced Cline MD /jeffry/ FELIPE CABRERA STAFF PATHOLOGIST Signed: 03/08/2024 15:[address] [facility]
--- OUTSIDE RECORDS SUMMARY | 2024-06-02 00:46 | XMS_ITS | Encounter Summary ---
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 Organization [facility] Address [address] [place] [address] Care Team Providers Care Manager Produce Name Role Phone LUCIANCED Primary Care Provider [...] Relationship to Policy Mar [facility] [place] [facility] (WNR) MEDICARE [facility] ([facility]) Sep 29, 2019 [id number] [phone] [id number] ONI DURAN MON PATIENT [facility] [place] [facility] ([place]NR) MEDICARE (M) [facility] ([facility]) Sep 29, 2008 [id number] ONI DURAN MON PATIENT [facility] [place] [facility] ([place]NR) MEDICARE ADVANTAGE [facility] ([facility]) Sep 29, 2008 [id number] [phone] [id number] RENEESI MON PATIENT [facility] (WNR) MEDICARE [facility] ([facility]) Sep 29, 2019 [id number] 00 ONI DURAN PATIENT [facility] (WNR) MEDICARE ADVANTAGE [facility] (WNR) Sep 29, 2010 [id number] ONI DURAN PATIENT Selected Encounter This section includes the information on record at [place] for the Encounter. Date/Time Encounter Type Encounter Description Reason Pro vider Source Mar 11, 2024 11:44 AM Outpatient Encounter TELEPHONE PRIMARY CARE IHE Encounter Template Text not used by [place] Plan of Treatment: Future Appointments (+ 6 months) and Future Tests (+/- 45 days) The Plan of Treatment section includes future care activities for the patient from all [place] [facility]. This section includes future appointments and future orders which are active, pending or scheduled. Future Appointments This section includes appointments that were scheduled to occur 6 months from the date of the Encounter, up to a maximum of 20 appointments. The data comes from all [facility]. Appointment Date/Time Appointment Type Appointme nt Facility Name Mar 29, 2024 02:00 PM [facility] Apr 19, 2024 11:15 PM AMBULATORY - NONE [facility] Apr 28, 2024 02:30 PM AMBULATORY - MEDICINE [facility] May 11, 2024 12:42 PM AMBULATORY - MEDICINE [facility] May 11, 2024 05:00 PM AMBULATORY - NONE [facility] May 14, 2024 04:50 PM AMBULATORY - NONE [facility] Sep 08, 2024 01:15 PM AMBULATORY - MEDICINE [facility] Sep 08, 2024 01:30 PM AMBULATORY - MEDICINE [facility] Sep 08, 2024 02:30 PM AMBULATORY - MEDICINE [facility] Active, Pending, and Scheduled Orders This section includes a listing of several types of active, pending, and scheduled orders, including clinic medications orders, diagnostic test orders, procedure orders and consult orders; where the start date of the order is 45 days before the date of the Encounter or 45 days after the date of theEncounter. The data comes from all [facility]. Test Date/Time Test Type Test Details Facility Name Apr 05, 2024 12:00 AM Laboratory - Chemi stry Order ALT/SGPT PLASMA SP [facility] Apr 05, 2024 12:00 AM Laboratory - Chemi stry Order AST/SGOT PLASMA SP [facility] Apr 05, 2024 12:00 AM Laboratory - Chemi stry Order CBC BLOOD SP ONCE [facility] Apr 05, 2024 12:00 AM Laboratory - Chemi stry Order BASIC METABOLIC PANEL+MG PLASMA SP [facility] Social History: Smoking Status (Most current) and Tobacco Use (All prior to encounter date) This section includes the most current, and the historical, smoking and tobacco- related health factors from the [place] facility where the Encounter took place. Current Smoking Status This section includes the most current smoking, or tobacco-related health factor, from the [place] facility where the Encounter took place. Date/Time Current Smoking Status Comment Facil ity Sep 10, 2023 03:30 PM VA-TOBACCO FORMER USER [facility] Tobacco Use History This section includes a history of the smoking, or tobacco-related health factors, that were collected on or before the date of the Encounter. The data comes from the [place] facility where the Encounter took place. Date/Time Smoking Status/Tobacco Use Comment F acility Sep 10, 2023 03:30 PM VA-TOBACCO QUIT 15 YRS OR MORE [facility] Jun 13, 2020 10:00 AM VA-TOBACCO FORMER USER [facility] Jun 13, 2020 10:00 AM VA-TOBACCO QUIT 15 YRS OR MORE [facility] May 20, 2019 12:18 PM VA-TOBACCO FORMER USER [facility] May 20, 2019 12:18 PM VA-TOBACCO QUIT 15 YRS OR MORE [facility] Jul 30, 2018 08:31 AM VA-TOBACCO FORMER USER [facility] Jul 30, 2018 08:31 AM VA-TOBACCO QUIT 15 YRS OR MORE [facility] Aug 25, 2017 08:04 AM FORMER TOBACCO USER 7Y OR GREATE R [facility] Nov 08, 2016 08:12 AM FORMER TOBACCO USER 7Y OR GREATE R [facility] Nov 29, 2015 12:46 PM FORMER TOBACCO USER 7Y OR GREATE R [facility] February 23, 2015 12:57 PM FORMER TOBACCO USER 7Y OR GREATE R [facility] January 27, 2014 10:10 AM FORMER TOBACCO USER 7Y OR GREATE R [facility] Mar 17, 2007 09:11 AM FORMER TOBACCO USER 7Y OR GREATE R [facility] Advance Directives: All historical and current Section [...] Mar 17, 2007 ADVANCE DIRECTIVE ALBERTO RODRIGUEZ [facility] Pathology Reports: +/- 30 days of [...] the Encounter. The data comes from all [place] treatment facilities. Date/Time Pathology Report Provider Source Mar 08, 2024 03:56 PM LR SURGICAL PATHOL OGY REPORT: LOCAL TITLE: LR SURGICAL PATHOLOGY REPORT STANDARD TITLE: PATHOLOGY REPORT DATE OF NOTE: MAR 08, 2024@15:56:47 ENTRY DATE: MAR 08, 2024@15:56:47 AUTHOR: FELIPE CABRERA EXP COSIGNER: URGENCY: STATUS: COMPLETED $APHDR Reporting Lab: [facility] [CLIA# [id number]] [place] [address] - - - - - - - [...] x 0.2 cm. The specimen is inked. (Coleman)Kiran MICROSCOPIC DESCRIPTION: Microscopic examination performed. [facility]. Diagnosis: Skin, Right preauricular cheek shave, biopsy-- - Sebaceous adenoma. /jeffry/ FELIPE CABRERA STAFF PATHOLOGIST Signed Mar 08, 2024@15:56 Performing Laboratory: Surgical Pathology Report Performed By: [facility] [CLIA# [id number]] [place] [address] $FTR - - - - - - - - - - - - - - - - - - - - - - - - - - - - - - - - - - - - - - - - (End of report) FELIPE CABRERA MD [facility] Date Mar 05, 2024 - - - - - - - - - - - - - - - - - - - - - - - - - - - - - - - - - - - - - - - - BETH DURAN STANDARD FORM 515 ID:[id number] SEX:M :1945 AGE: 78 LOC:1068 PCP: Ced Cline MD /jeffry/ FELIPE CABRERA STAFF PATHOLOGIST Signed: 03/08/2024 15:56 FELIPE CABRERA [facility] Encounter Notes: All associated encounter notes This section contains the clinical notes associated to the Encounter. Date/Time Encounter Note(s) Provider Source Mar 11, 2024 11:44 AM NURSING OUTPATIENT NOTE: LOCAL TITLE: MEDICINE CLINIC NURSING RN NOTE STANDARD TITLE: NURSING OUTPATIENT NOTE DATE OF NOTE: MAR 11, 2024@11:44 ENTRY DATE: MAR 11, 2024@11:44:39 AUTHOR: JACQUI DE LA GARZA COSIGNER: URGENCY: STATUS: COMPLETED TYPE OF VISIT: Telephone REASON FOR VISIT: Rosio Garcia Nurse channel marketing manager at [facility] LVM on junior copywriter's phone requesting update on pt home evaluation, per 01/29 note from junior copywriter: SANJUANA alerting Nursing at [facility] that pt spouse Azra declined home safety evaluation. Per [facility] Azra stated she has no intentions of bringing pt home and/or making adjustments to home at this time. reiterated message that spouse declined. ALLERGIES: FACILITY ALLERGY/ADR -------- [facility] DOXYCYCLINE [facility] LISINOPRIL [facility] PENICILLIN [facility] SULFA DRUGS [facility] AMLODIPINE [facility] DOXYCYCLINE [facility] LISINOPRIL [facility] PENICILLIN [facility] SULFA DRUGS /jeffry/ JACQUI DE LA GARZA, RN REGISTERED NURSE Signed: 03/11/2024 11:46 JACQUI DE LA GARZA [facility]
--- OUTSIDE RECORDS SUMMARY | 2024-06-02 00:46 | XMS_ITS | Encounter Summary ---
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 ([place] Organization [facility] Address [address] [place] [address] Care Team Providers Care Voice Professor Name Role Phone CED EPSTEIN Primary Care [...] Relationship to Policy Mar [facility] [place] [facility] (WNR) MEDICARE [facility] ([facility] Sep 29, 2019 [id number] ONI DURAN MON PATIENT [facility] [place] [facility] (WNR) MEDICARE (M) [facility] ([facility] [place] Sep 29, 2008 [id number] [phone] RENEE,SI MON PATIENT [facility] [place] [facility] (WNR) MEDICARE [facility] ([facility] Sep 29, 2008 [id number] [phone] RENEE,SI MON PATIENT [facility] (WNR) MEDICARE ADVANTAGE [facility] ([facility] Sep 29, 2019 [id number] ONI DURAN PATIENT [facility] (WNR) MEDICARE ADVANTAGE [facility] (WNR) Sep 29, 2010 [id number] ONI DURAN PATIENT Selected Encounter This section includes the information on record at [place] for the Encounter. Date/Time Encounter Type Encounter Description Reason Provider Source Mar 08, 2024 11:15 AM INTRAORAL FULL IMAGE SERIES DENTAL ICD-10-CM K02.63 Dental caries on smooth surface penetrating into pulp NADEEMANAMaryanaSAHARA [facility] Encounter Template Text not used by [place] Assessments - Encounter Diagnoses This section includes the primary and secondary diagnoses documented for the Encounter. Date/Time Primary/Secondary Diagnosis Diagnosis Name Provider Source Mar 08, 2024 11:56 AM PRIMARY Dental caries on smooth surface penetrating into pulp MEREDITHMaryanaSAHARA [facility] Plan of Treatment: Future Appointments (+ 6 months) and Future Tests (+/- 45 days) The Plan of Treatment section includes future care activities for the patient from all [place] [facility]. This section includes future appointments and future orders which are active, pending or scheduled. Future Appointments This section includes appointments that were scheduled to occur 6 months from the date of the Encounter, up to a maximum of 20 appointments. The data comes from all [place] treatment [facility]. Appointment Date/Time Appointment Type Appointme nt Facility Name Mar 29, 2024 02:00 PM [facility] Apr 19, 2024 11:15 PM [facility] Apr 28, 2024 02:30 PM AMBULATORY - MEDICINE [facility] May 11, 2024 12:42 PM AMBULATORY - MEDICINE [facility] May 11, 2024 05:00 PM [facility] NONE [facility] May 14, 2024 04:50 PM AMBULATORY - NONE [facility] Active, Pending, and Scheduled Orders This section includes a listing of several types of active, pending, and scheduled orders, including clinic medications orders, diagnostic test orders, procedure orders and consult orders; where the start date of the order is 45 days before the date of the Encounter or 45 days after the date of theEncounter. The data comes from all [place] treatment [facility]. Test Date/Time Test Type Test Details Facility Name Apr 05, 2024 12:00 AM Laboratory - Chemi stry Order AST/SGOT PLASMA SP [facility] Apr 05, 2024 12:00 AM Laboratory - Chemi stry Order ALT/SGPT PLASMA SP [facility] Apr 05, 2024 12:00 AM Laboratory - Chemi stry Order BASIC METABOLIC PANEL+MG PLASMA SP [facility] Apr 05, 2024 12:00 AM Laboratory - Chemi stry Order CBC BLOOD SP ONCE [facility] Vital Signs: All taken on the encounter date This section contains inpatient and outpatient Vital Signs collected on the date of the Encounter. Date/Time Temperature Pulse Blood Pressure Respiratory Rate SP02 Pain Height Weight Body Mass Index Source Mar 08, 2024 11:10 AM 98 76 164/87 SHIVA THOMASON [facility] Social History: Smoking Status (Most current) and Tobacco Use (All prior to encounter date) This section includes the most current, and the historical, smoking and tobacco- related health factors from the [place] facility where the Encounter took place. Current Smoking Status This section includes the most current smoking, or tobacco-related health factor, from the [place] facility where the Encounter took place. Date/Time Current Smoking Status Comment Facil ity Sep 10, 2023 03:30 PM VA-TOBACCO FORMER USER [facility] Tobacco Use History This section includes a history of the smoking, or tobacco-related health factors, that were collected on or before the date of the Encounter. The data comes from the [place] facility where the Encounter took place. Date/Time Smoking Status/Tobacco Use Comment F acility Sep 10, 2023 03:30 PM VA-TOBACCO QUIT 15 YRS OR MORE [facility] Jun 13, 2020 10:00 AM VA-TOBACCO FORMER USER [facility] Jun 13, 2020 10:00 AM VA-TOBACCO QUIT 15 YRS OR MORE [facility] May 20, 2019 12:18 PM VA-TOBACCO FORMER USER [facility] May 20, 2019 12:18 PM VA-TOBACCO QUIT 15 YRS OR MORE [facility] Jul 30, 2018 08:31 AM VA-TOBACCO FORMER USER [facility] Jul 30, 2018 08:31 AM VA-TOBACCO QUIT 15 YRS OR MORE [facility] Aug 25, 2017 08:04 AM FORMER TOBACCO USER 7Y OR GREATE R [facility] Nov 08, 2016 08:12 AM FORMER TOBACCO USER 7Y OR GREATE R [facility] Nov 29, 2015 12:46 PM FORMER TOBACCO USER 7Y OR GREATE R [facility] February 23, 2015 12:57 PM FORMER TOBACCO USER 7Y OR GREATE R [facility] January 27, 2014 10:10 AM FORMER TOBACCO USER 7Y OR DELMIE R [facility] Mar 17, 2007 09:11 AM FORMER TOBACCO USER 7Y OR SERA R [facility] Advance Directives: All historical and current [...] DIRECTIVE ALBERTO RODRIGUEZ [facility] Pathology Reports: +/- 30 days of the [...] the Encounter. The data comes from all [place] treatment facilities. Date/Time Pathology Report Provider Source Mar 08, 2024 03:56 PM LR SURGICAL PATHOL OGY REPORT: LOCAL TITLE: LR SURGICAL PATHOLOGY REPORT STANDARD TITLE: PATHOLOGY REPORT DATE OF NOTE: MAR 08, 2024@15:56:47 ENTRY DATE: MAR 08, 2024@15:56:47 AUTHOR: FELIPE CABRERA EXP COSIGNER: URGENCY: STATUS: COMPLETED $APHDR Reporting Lab: [facility] [CLIA# [id number]] [place] [address] - - - - - - - [...] - - - - PREOPERATIVE DIAGNOSIS: [facility] - - - - - - - [...] of a shave biopsy of a samson baileerucous nodule measuring 1.0 x 0.9 x 0.2 cm. The specimen is inked. CE. (D)Kiran MICROSCOPIC DESCRIPTION: Microscopic examination performed. [facility]. Diagnosis: Skin, Right preauricular cheek shave, biopsy-- - Sebaceous adenoma. /jeffry/ FELIPE CABRERA STAFF PATHOLOGIST Signed Mar 08, 2024@15:56 Performing Laboratory: Surgical Pathology Report Performed By: [facility] [CLIA# [id number]] [place] [address] $FTR - - - - - - - - - - - - - - - - - - - - - - - - - - - - - - - - - - - - - - - - (End of report) FELIPE CABRERA MD [facility] Date Mar 05, 2024 - - - - - - - - - - - - - - - - - - - - - - - - - - - - - - - - - - - - - - - - BETH DURAN STANDARD FORM 515 ID:[id number] SEX:M :1945 AGE: 78 LOC:1068 PCP: Ced Epstein MD /jeffry/ FELIPE CABRERA STAFF PATHOLOGIST Signed: 03/08/2024 15:56 FELIPE CABRERA [facility] February 09, 2024 01:57 PM LR SURGICAL PATHOL OGY REPORT: LOCAL TITLE: LR SURGICAL PATHOLOGY REPORT STANDARD TITLE: PATHOLOGY REPORT DATE OF NOTE: FEBRUARY 09, 2024@13:57:21 ENTRY DATE: FEBRUARY 09, 2024@13:57:21 AUTHOR: ADDY HENRIQUEZ COSIGNER: URGENCY: STATUS: COMPLETED $APHDR Reporting Lab: [facility] [CLIA# [id number]] [place] [address] - - - - - - - [...] Performing Laboratory: Surgical Pathology Report Performed By: [facility] [CLIA# [id number]] [place] [address] $FTR - - - - - - [...] - - BETH DURAN STANDARD FORM 515 ID:[id number] SEX:M :1945 AGE: 78 LOC: PCP: Ced Epstein MD /jeffry/ ADDY HENRIQUEZ MD STAFF PATHOLOGIST Signed: 02/09/2024 13:57 ADDY HENRIQUEZ [facility] February 09, 2024 01:56 PM LR SURGICAL PATHOL OGY REPORT: LOCAL TITLE: LR SURGICAL PATHOLOGY REPORT STANDARD TITLE: PATHOLOGY REPORT DATE OF NOTE: FEBRUARY 09, 2024@13:56:54 ENTRY DATE: FEBRUARY 09, 2024@13:56:54 AUTHOR: ADDY HENRIQUEZ EXP COSIGNER: URGENCY: STATUS: COMPLETED $APHDR Reporting Lab: [facility] [CLIA# [id number]] [place] [address] - - - - - - - [...] Performing Laboratory: Surgical Pathology Report Performed By: [facility] [CLIA# [id number]] [place] [address] $FTR - - - - - - [...] - - BETH DURAN STANDARD FORM 515 ID:[id number] SEX:M :1945 AGE: 78 LOC: PCP: Ced Epstein MD /jeffry/ ADDY HENRIQUEZ MD STAFF PATHOLOGIST Signed: 02/09/2024 13:56 ADDY HENRIQUEZ [facility] Encounter Notes: All associated encounter notes This section contains the clinical notes associated to the Encounter. Date/Time Encounter Note(s) Provider Source Mar 08, 2024 11:56 AM DENTISTRY CONSULT: LOCAL TITLE: DENTAL IMAGING CONSULT STANDARD TITLE: DENTISTRY CONSULT DATE OF NOTE: MAR 08, 2024@11:56 ENTRY DATE: MAR 08, 2024@11:56:14 AUTHOR: SAHARA CEVALLOS EXP COSIGNER: URGENCY: STATUS: COMPLETED Dental images were exposed, interpreted, and results were discussed with patient. /zhanna CEVALLOS DDS STAFF DENTIST Signed: 03/08/2024 11:56 SAHARA CEVALLOS [facility] Mar 08, 2024 11:51 AM DENTISTRY ATTENDIN G NOTE: LOCAL TITLE: Dental Clinic Examination Note STANDARD TITLE: DENTISTRY ATTENDING NOTE DATE OF NOTE: MAR 08, 2024@11:51 ENTRY DATE: MAR 08, 2024@11:56:04 AUTHOR: SAHARA CEVALLOS EXP COSIGNER: URGENCY: STATUS: COMPLETED Patient Name: BETH DURAN, : 1945, Age: 78 Visit: S: Mar 08, 2024@11:15 [facility] DENTAL NEW PATIENT 2UD. Primary PCE Diagnosis: K02.63 (Dental caries on smooth surface penetrating into pulp). Dental Category: 15-OPC, Class IV. Treatment Status: Active. Completed Care: (D0120) PERIODIC ORAL EVAL EST. DX: K02.63 Dental Caries on Smooth Surface Penetrating into Pulp (D0210) INTRAORAL FULL IMAGE SERIES. DX: K02.63 Dental Caries on Smooth Surface Penetrating into Pulp - - - - - - - - - - - - - - - - - - - - - - - - - - - - - - Presentation/Chief Complaint: Patient presents for periodic oral evaluation I did not go the the appointment with the oral surgeon. I was having surgery on my ear History of Present Illness (HPI): Patient's last dental exam was in 2020 Vital Signs: Dental Pain (0-10): 0 Temperature (??F): 98 03/08/2024 11:01 Blood Pressure (mmHg): 164/87 03/08/2024 11:01 Pulse (BPM): 76 03/08/2024 11:01 Past Medical History and Medications: Significant changes are noted since the last dental visit: Active problems - Computerized Problem List is the source for the followin. Hypertension (SNOMED CT 39091614) 2. Hyperlipidemia (SNOMED CT 96950157) 3. Tinnitus * 4. 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 Asthma (SNOMED CT 952871415) 6. Diabetic retinopathy (SNOMED CT 7225698) 7. Type 2 diabetes mellitus (SNOMED CT 78496795) 8. Umbilical hernia (SNOMED CT 855832360) 9. Obstructive sleep apnea (SNOMED CT 74546749) 10. Obesity * - 10 TOPIC GRAD 07-09-2012* 244.0 --> 09-17-12* 243.2 lbs 11. Anemia 12. Rosacea 13. Carcinoma of bladder - Followed by outside Urology. 14. Depression ([facility] [id number]) - prescribed by [facility] for depression 15. Congestive heart failure 16. CVA - Cerebrovascular accident - 11/2020, outside hospital. - Right sided hemiparesis 17. Dysphagia as a late effect of cerebrovascular accident 18. Long-term current use of anticoagulant 19. Exposure to Agent Loving 20. Paroxysmal atrial fibrillation 21. Exposure to potentially hazardous substance ([facility] [id number]) - Entered automatically through [facility] Problem List documentation program Social History: Patient denies history of alcohol, tobacco, and drug use. Intraoral and Extraoral Screening Exam Findings: 03/08/2024 Head and neck assessment with oral cancer screening is negative: no apparent pathology noted. Tooth and Patient Notes: Patient Note -- [facility] - 03/08/2024 Last DDS visit here. Was referred to OS for ext # 1,#3 did not go teeth were not bothering him at the time. Teeth are filthy Refer to [facility] for work Oral Examination: Oral Health Assessment Findings: Plaque Index: 3 - Heavy Caries Risk: 3 - High Oral Hygiene: 3 - Poor Dental Examination: Missing Teeth: 2. Impacted Teeth: 17. Other Dental Findings: Watch: 32 , 17 , 16 . Other: generalized plaque, caries, fractured teeth, poor oral hygiene, and unrestorable teeth. No Significant Tooth Mobility Noted Periodontal Screening/Recording (PSR): 4-4-4 - - - 4-4-4 Periodontal Assessment: Chronic Generalized Severe Gingivitis Chronic Moderate Generalized Periodontitis Parafunctional Habits: History: Patient reports no known parafunctional habits. TMJ Findings: History: Patient reports no symptoms associated with TMJ. Clinical Findings: Occlusal Findings: Normal Mandibular relationship Class II Left first molar relationship Class II Right first molar relationship Class II Left cuspid relationship Class II Right cuspid relationship Salivary Flow Findings: Clinically normal salivary quantity and quality noted Assessment/Plan: Discussed findings with patient. Patient reports that, although difficult, he can transfer to the dental chair from his wheelchair. Given francesco's drive time, access at our clinics for dental hygiene and oral surgeon, patient elected to have his dental care close to his home. Patient agreed to care in the community. Community care consult entered. prescribed prevident toothpaste. No contraindications for planned procedure(s). Planned Procedures: Non-VA Care (D2740) CROWN PORCELAIN/CERAMIC SUBS: 8. DX: (). (D2740) CROWN PORCELAIN/CERAMIC SUBS: 14. DX: (). (D2740) CROWN PORCELAIN/CERAMIC SUBS: 18. DX: (). (D2750) CROWN PORCELAIN W/ H HAYES M: 4. DX: (). (D2790) CROWN FULL CAST HIGH HAYES M: 30. DX: (). (D2950) CORE BUILD-UP INCL ANY PINS: 8. DX: (). (D2950) CORE BUILD-UP INCL ANY PINS: 14. DX: (). (D2950) CORE BUILD-UP INCL ANY PINS: 18. DX: (). (D4341) PERIODONTAL SCALING & ROOT: Upper Right. DX: (). (D4341) PERIODONTAL SCALING & ROOT: Upper Left. DX: (). (D4341) PERIODONTAL SCALING & ROOT: Lower Left. DX: (). (D4341) PERIODONTAL SCALING & ROOT: Lower Right. DX: (). (D7140) EXTRACTION ERUPTED TOOTH/EXR: 7. DX: (). (D7140) EXTRACTION ERUPTED TOOTH/EXR: 13. DX: (). (D7140) EXTRACTION ERUPTED TOOTH/EXR: 1. DX: (). (D7140) EXTRACTION ERUPTED TOOTH/EXR: 3. DX: (). (D7140) EXTRACTION ERUPTED TOOTH/EXR: 2. DX: (). Reviewed risks/benefits/alternatives associated with the proposed treatment plan. Patient agrees to treatment plan as discussed. Apprised patient of findings, treatment recommendations, and treatment options. Patient elected to continue with treatment as discussed above.Discussed treatment risks, benefits, consequences of treatment, and consequences of no treatment. Patient Information/Education: No barriers to learning identified The sterility of the instruments and kits used during this procedure was verified for sterility by the dentist and it administrative assistant prior to their use. Reviewed risks/benefits/alternatives associated with the proposed treatment plan. Patient agrees to treatment plan as discussed. Glass Installer: Jill Exam Time: 50 (minutes) Disposition: Next visit: Patient to continue his dental care with care in the community dental office. /jeffry/ SAHARA CEVALLOS DDS STAFF DENTIST Signed: 03/08/2024 11:56 SAHARA CEVALLOS [facility]
--- OUTSIDE RECORDS SUMMARY | 2024-06-02 00:46 | XMS_ITS | Encounter Summary ---
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 [place] Organization [facility] Address [address] [place] [address] Care Team Providers Care Business Excellence Leader Name Role Phone LUCIANCED Primary Care Provider [...] Relationship to Policy Mar [facility] [place] [facility] (WNR) MEDICARE [facility] ([facility]) Sep 29, 2019 [id number] ONI DURAN MON PATIENT [facility] [place] [facility] (WNR) MEDICARE (M) [facility] ([facility]) Sep 29, 2008 [id number] [phone] ONI DURAN MON PATIENT [facility] [place] [facility] ([place]NR) MEDICARE ADVANTAGE [facility] ([facility]) Sep 29, 2008 [id number] RENEESI MON PATIENT [facility] (WNR) MEDICARE [facility] ([facility]) Sep 29, 2019 [id number] ONI DURAN PATIENT [facility] [place] [facility] (WNR) MEDICARE ADVANTAGE [facility] (WNR) Sep 29, 2010 [id number] ONI DURAN PATIENT Selected Encounter This section includes the information on record at [place] for the Encounter. Date/Time Encounter Type Encounter Description Reason Pro vider Source Mar 11, 2024 12:10 PM Outpatient Encounter TELEPHONE PRIMARY CARE IHE Encounter Template Text not used by [place] Plan of Treatment: Future Appointments (+ 6 months) and Future Tests (+/- 45 days) The Plan of Treatment section includes future care activities for the patient [facility] This section includes future appointments and future orders which are active, pending or scheduled. Future Appointments This section includes appointments that were scheduled to occur 6 months from the date of the Encounter, up to a maximum of 20 appointments. The data comes from all [facility]. Appointment Date/Time Appointment Type Appointme nt Facility Name Mar 29, 2024 02:00 PM [facility] Apr 19, 2024 11:15 PM AMBULATORY - NONE [facility] Apr 28, 2024 02:30 PM AMBULATORY - MEDICINE [facility] May 11, 2024 12:42 PM AMBULATORY - MEDICINE [facility] May 11, 2024 05:00 PM AMBULATORY - NONE [facility] May 14, 2024 04:50 PM AMBULATORY - NONE [facility] Sep 08, 2024 01:15 PM AMBULATORY - MEDICINE [facility] Sep 08, 2024 01:30 PM AMBULATORY - MEDICINE [facility] Sep 08, 2024 02:30 PM AMBULATORY - MEDICINE [facility] Active, [...] of theEncounter. The data comes from all [facility]. Test Date/Time Test Type Test Details Facility Name Apr 05, 2024 12:00 AM Laboratory - Chemi stry Order AST/SGOT PLASMA SP [facility] Apr 05, 2024 12:00 AM Laboratory - Chemi stry Order CBC BLOOD SP ONCE [facility] Apr 05, 2024 12:00 AM Laboratory - Chemi stry Order BASIC METABOLIC PANEL+MG PLASMA SP [facility] Apr 05, 2024 12:00 AM Laboratory - Chemi stry Order ALT/SGPT PLASMA [facility] Social History: Smoking Status (Most current) and Tobacco Use (All prior to encounter date) This section includes the most current, and the historical, smoking and tobacco- related health factors from the [place] facility where the Encounter took place. Current Smoking Status This section includes the most current smoking, or tobacco-related health factor, from the [place] facility where the Encounter took place. Date/Time Current Smoking Status Comment Facil ity Sep 10, 2023 03:30 PM VA-TOBACCO FORMER USER [facility] Tobacco Use History This section includes a history of the smoking, or tobacco-related health factors, that were collected on or before the date of the Encounter. The data comes from the [place] facility where the Encounter took place. Date/Time Smoking Status/Tobacco Use Comment F acility Sep 10, 2023 03:30 PM VA-TOBACCO QUIT 15 YRS OR MORE [facility] Jun 13, 2020 10:00 AM VA-TOBACCO FORMER USER [facility] Jun 13, 2020 10:00 AM VA-TOBACCO QUIT 15 YRS OR MORE [facility] May 20, 2019 12:18 PM VA-TOBACCO FORMER USER [facility] May 20, 2019 12:18 PM VA-TOBACCO QUIT 15 YRS OR MORE [facility] Jul 30, 2018 08:31 AM VA-TOBACCO FORMER USER [facility] Jul 30, 2018 08:31 AM VA-TOBACCO QUIT 15 YRS OR MORE [facility] Aug 25, 2017 08:04 AM FORMER TOBACCO USER 7Y OR GREATE R [facility] Nov 08, 2016 08:12 AM FORMER TOBACCO USER 7Y OR GREATE R [facility] Nov 29, 2015 12:46 PM FORMER TOBACCO USER 7Y OR GREATE R [facility] February 23, 2015 12:57 PM FORMER TOBACCO USER 7Y OR GREATE R [facility] January 27, 2014 10:10 AM FORMER TOBACCO USER 7Y OR GREATE R [facility] Mar 17, 2007 09:11 AM FORMER TOBACCO USER 7Y OR GREATE R [facility] Advance Directives: All historical and [...] Mar 17, 2007 ADVANCE DIRECTIVE ALBERTO RODRIGUEZ [facility] Pathology Reports: +/- 30 [...] the Encounter. The data comes from all [place] treatment facilities. Date/Time Pathology Report Provider Source Mar 08, 2024 03:56 PM LR SURGICAL PATHOL OGY REPORT: LOCAL TITLE: LR SURGICAL PATHOLOGY REPORT STANDARD TITLE: PATHOLOGY REPORT DATE OF NOTE: MAR 08, 2024@15:56:47 ENTRY DATE: MAR 08, 2024@15:56:47 AUTHOR: FELIPE CABRERA EXP COSIGNER: URGENCY: STATUS: COMPLETED $APHDR Reporting Lab: [facility] [CLIA# [id number]] [place] [address] - - - - - - - [...] inked. (Coleman)Kiran MICROSCOPIC DESCRIPTION: Microscopic examination performed. [facility]. Diagnosis: Skin, Right preauricular cheek shave, biopsy-- - Sebaceous adenoma. /jeffry/ FELIPE CABRERA STAFF PATHOLOGIST Signed Mar 08, 2024@15:56 Performing Laboratory: Surgical Pathology Report Performed By: [facility] [CLIA# [id number]] [place] [address] $FTR - - - - - - - - - - - - - - - - - - - - - - - - - - - - - - - - - - - - - - - - (End of report) FELIPE CABRERA MD [facility] Date Mar 05, 2024 - - - - - - - - - - - - - - - - - - - - - - - - - - - - - - - - - - - - - - - - BETH DURAN STANDARD FORM 515 ID:[id number] SEX:M :1945 AGE: 78 LOC:1068 PCP: Ced Cline MD /jeffry/ FELIPE CABRERA STAFF PATHOLOGIST Signed: 03/08/2024 15:56 FELIPE CABRERA [facility] Encounter Notes: All associated encounter notes This section contains the clinical notes associated to the Encounter. Date/Time Encounter Note(s) Provider Source Mar 11, 2024 12:10 PM PRIMARY CARE NONVA NOTE: LOCAL TITLE: CO-MANAGED CARE NOTE STANDARD TITLE: PRIMARY CARE NONVA NOTE DATE OF NOTE: MAR 11, 2024@12:10 ENTRY DATE: MAR 11, 2024@12:10:47 AUTHOR: MARIA DEL CARMEN BREAUX EXP COSIGNER: URGENCY: STATUS: COMPLETED CO-MANAGED CARE NOTE Has ADDENDA Received a request for: 1. Start Omeprazole 40mg once daily. Records scanned in [employer]Swype and available for review. Rx written by: Wilda Nunez Facility: [facility] Local provider phone #[phone] Local provider fax #[phone] Please alert me if med isn't approved or additional information is requested. If med is denied let me know what alternatives would be approved so I can communicate that information back to the local provider. /jeffry/ MARIA DEL CARMEN BREAUX LPN Co-Manager Flight Operations Signed: 03/11/2024 12:12 Receipt Acknowledged By: 03/11/2024 12:26 /jeffry/ Ced Cilne D.O. Staff Physician 03/11/2024 ADDENDUM STATUS: COMPLETED Above Rx ordered. /jeffry/ Ced Cline D.O. Staff Physician Signed: 03/11/2024 12:26 MARIA DEL CARMEN BREAUX [facility]
--- OUTSIDE RECORDS SUMMARY | 2024-06-02 00:46 | XMS_ITS | Encounter Summary ---
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 [place] Organization [facility] Address [address] [place] [address] Care Team Providers Care Rehab/Pre Vocational Counselor Name Role Phone LUCIAN CED Primary Care [...] Relationship to Policy Mar [facility] [place] [facility] (WNR) MEDICARE [facility] ([facility]) Sep 29, 2019 [id number] ONI DURAN MON PATIENT [facility] [place] [facility] ([place]NR) MEDICARE (M) [facility] ([facility]) Sep 29, 2008 [id number] ONI DURAN MON PATIENT [facility] [place] [facility] ([place]NR) MEDICARE ADVANTAGE [facility] (R) Sep 29, 2008 [id number] [phone] [id number] ONI DURAN MON PATIENT [facility] (WNR) MEDICARE ADVANTAGE [facility] ([facility]) Sep 29, 2019 [id number] 00 ONI DURAN PATIENT [facility] [place] [facility] (WNR) MEDICARE ADVANTAGE [facility] (WNR) Sep 29, 2010 [id number] ONI DURAN PATIENT Selected Encounter This section includes the information on record at [place] for the Encounter. Date/Time Encounter Type Encounter Description Reason Pro vider Source Mar 09, 2024 01:35 PM Outpatient Encounter COMMUNITY CARE CONSULT IHE Encounter Template Text not used by [place] Plan of Treatment: Future Appointments (+ 6 months) and Future Tests (+/- 45 days) The Plan of Treatment section includes future care activities for the patient from all [place] [facility]. This section includes future appointments and future orders which are active, pending or scheduled. Future Appointments This section includes appointments that were scheduled to occur 6 months from the date of the Encounter, up to a maximum of 20 appointments. The data comes from all [facility]. Appointment Date/Time Appointment Type Appointme nt Facility Name Mar 29, 2024 02:00 PM [facility] [place] [facility] Apr 19, 2024 11:15 PM AMBULATORY - NONE [facility] Apr 28, 2024 02:30 PM AMBULATORY - MEDICINE [facility] May 11, 2024 12:42 PM AMBULATORY - MEDICINE [facility] May 11, 2024 05:00 PM AMBULATORY - NONE [facility] May 14, 2024 04:50 PM AMBULATORY - NONE [facility] Sep 08, 2024 01:15 PM AMBULATORY - MEDICINE [facility] Sep 08, 2024 01:30 PM AMBULATORY - MEDICINE [facility] Sep 08, 2024 02:30 PM AMBULATORY - MEDICINE [facility] Active, Pending, and Scheduled Orders This section includes a listing of several types of active, pending, and scheduled orders, including clinic medications orders, diagnostic test orders, procedure orders and consult orders; where the start date of the order is 45 days before the date of the Encounter or 45 days after the date of theEncounter. The data comes from all [facility]. Test Date/Time Test Type Test Details Facility Name Apr 05, 2024 12:00 AM Laboratory - Chemi stry Order AST/SGOT PLASMA SP [facility] Apr 05, 2024 12:00 AM Laboratory - Chemi stry Order ALT/SGPT PLASMA SP [facility] Apr 05, 2024 12:00 AM Laboratory - Chemi stry Order CBC BLOOD SP ONCE [facility] Apr 05, 2024 12:00 AM Laboratory - Chemi stry Order BASIC METABOLIC PANEL+MG PLASMA SP [facility] Social History: Smoking Status (Most current) and Tobacco Use (All prior to encounter date) This section includes the most current, and the historical, smoking and tobacco- related health factors from the [facility] where the Encounter took place. Current Smoking Status This section includes the most current smoking, or tobacco-related health factor, from the [place] facility where the Encounter took place. Date/Time Current Smoking Status Comment Facil ity Sep 10, 2023 03:30 PM VA-TOBACCO QUIT 15 YRS OR MORE [facility] Tobacco Use History This section includes a history of the smoking, or tobacco-related health factors, that were collected on or before the date of the Encounter. The data comes from the [place] facility where the Encounter took place. Date/Time Smoking Status/Tobacco Use Comment F acility Sep 10, 2023 03:30 PM VA-TOBACCO QUIT 15 YRS OR MORE [facility] Jun 13, 2020 10:00 AM VA-TOBACCO FORMER USER [facility] Jun 13, 2020 10:00 AM VA-TOBACCO QUIT 15 YRS OR MORE [facility] May 20, 2019 12:18 PM VA-TOBACCO FORMER USER [facility] May 20, 2019 12:18 PM VA-TOBACCO QUIT 15 YRS OR MORE [facility] Jul 30, 2018 08:31 AM VA-TOBACCO FORMER USER [facility] Jul 30, 2018 08:31 AM VA-TOBACCO QUIT 15 YRS OR MORE [facility] Aug 25, 2017 08:04 AM FORMER TOBACCO USER 7Y OR GREATE R [facility] Nov 08, 2016 08:12 AM FORMER TOBACCO USER 7Y OR GREATE R [facility] Nov 29, 2015 12:46 PM FORMER TOBACCO USER 7Y OR GREATE R [facility] February 23, 2015 12:57 PM FORMER TOBACCO USER 7Y OR GREATE R [facility] January 27, 2014 10:10 AM FORMER TOBACCO USER 7Y OR GREATE R [facility] Mar 17, 2007 09:11 AM FORMER TOBACCO USER 7Y OR GREATE R [facility] Advance Directives: All historical [...] Mar 17, 2007 ADVANCE DIRECTIVE TORRESALBERTO [facility] Pathology Reports: +/- 30 days [...] COSIGNER: URGENCY: STATUS: COMPLETED $APHDR Reporting Lab: [facility] [CLIA# [id number]] [place] [address] - - - - - - - [...] inked. (Coleman)Kiran MICROSCOPIC DESCRIPTION: Microscopic examination performed. [facility]. Diagnosis: Skin, Right preauricular cheek shave, biopsy-- - Sebaceous adenoma. /jeffry/ FELIPE CABRERA STAFF PATHOLOGIST Signed Mar 08, 2024@15:56 Performing Laboratory: Surgical Pathology Report Performed By: [facility] [CLIA# [id number]] [place] [address] $FTR - - - - - - - - - - - - - - - - - - - - - - - - - - - - - - - - - - - - - - - - (End of report) FELIPE CABRERA MD [facility] Date Mar 05, 2024 - - - - - - - - - - - - - - - - - - - - - - - - - - - - - - - - - - - - - - - - BETH DURAN STANDARD FORM 515 ID:[id number] SEX:M :1945 AGE: 78 LOC:1068 PCP: Ced Cline MD /jeffry/ FELIPE CABRERA STAFF PATHOLOGIST Signed: 03/08/2024 15:56 FELIPE CABRERA [facility] February 09, 2024 01:57 PM LR SURGICAL PATHOL OGY REPORT: LOCAL TITLE: LR SURGICAL PATHOLOGY REPORT STANDARD TITLE: PATHOLOGY REPORT DATE OF NOTE: FEBRUARY 09, 2024@13:57:21 ENTRY DATE: FEBRUARY 09, 2024@13:57:21 AUTHOR: ADDY HENRIQUEZ COSIGNER: URGENCY: STATUS: COMPLETED $APHDR Reporting Lab: [facility] [CLIA# [id number]] [place] [address] - - - - - - - [...] Performing Laboratory: Surgical Pathology Report Performed By: [facility] [CLIA# [id number]] [place] [address] $FTR - - - - - - [...] - - BETH DURAN STANDARD FORM 515 ID:[id number] SEX:M :1945 AGE: 78 LOC: PCP: Ced Cline MD /jeffry/ ADDY HENRIQUEZ MD STAFF PATHOLOGIST Signed: 02/09/2024 13:57 ADDY HENRIQUEZ [facility] February 09, 2024 01:56 PM LR SURGICAL PATHOL OGY REPORT: LOCAL TITLE: LR SURGICAL PATHOLOGY REPORT STANDARD TITLE: PATHOLOGY REPORT DATE OF NOTE: FEBRUARY 09, 2024@13:56:54 ENTRY DATE: FEBRUARY 09, 2024@13:56:54 AUTHOR: ADDY HENRIQUEZ EXP COSIGNER: URGENCY: STATUS: COMPLETED $APHDR Reporting Lab: [facility] [CLIA# [id number]] [place] [address] - - - - - - - [...] Performing Laboratory: Surgical Pathology Report Performed By: [facility] [CLIA# [id number]] [place] [address] $FTR - - - - - - [...] - - BETH DURAN STANDARD FORM 515 ID:[id number] SEX:M :1945 AGE: 78 LOC: PCP: Ced Cline MD /jeffry/ ADDY HENRIQUEZ MD STAFF PATHOLOGIST Signed: 02/09/2024 13:56 ADDY HENRIQUEZ [facility] Encounter Notes: All associated encounter notes This section contains the clinical notes associated to the Encounter. Date/Time Encounter Note(s) Provider Source Mar 09, 2024 01:35 PM NONVA NOTE: LOCAL TITLE: COMMUNITY CARE-CARE COORDINATION PLAN NOTE STANDARD TITLE: NONVA NOTE DATE OF NOTE: MAR 09, 2024@13:35 ENTRY DATE: MAR 09, 2024@13:35:53 AUTHOR: MAMTA MARIA EXP COSIGNER: URGENCY: STATUS: COMPLETED Community Care Consult: Dental General Service Consult No: [id number] [facility] Referral #: Chief Complaint: DISORDER OF TEETH Level of Care Coordination Complex/Chronic Care Coordination was determined from: Chart Review Facility Community Care Office Contact Care Coordination Point of Contact: Dental Team Services: Moderate Care Coordination Services Case Management, if appropriate Direct communications with interdisciplinary team Plan: proceed to scheduling /jeffry/ Mamta Maria RN Community Water Jet Loom Fixer Signed: 03/09/2024 13:36 MAMTA MARIA [facility]
--- OUTSIDE RECORDS SUMMARY | 2024-06-02 00:47 | XMS_ITS | Encounter Summary ---
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 ([place]) Organization [facility] Address [address] [place] [address] Care Team Providers Care Acetylene Gas Compressor Name Role Phone LUCIANCED Primary Care Provider [...] [place] [facility] (WNR) MEDICARE [facility] ([facility]) Sep 29, 2019 [id number] 00 ONI DURAN MON PATIENT [place] OF [place] [facility] (WNR) MEDICARE (M) [facility] ([facility]) Sep 29, 2008 [id number] ONI DURAN MON PATIENT [place] [facility] (WNR) MEDICARE ADVANTAGE [facility] ([facility]) Sep 29, 2008 [id number] RENEESI MON PATIENT [facility] (WNR) MEDICARE [facility] ([facility]) Sep 29, 2019 [id number] 00 ONI DURAN PATIENT [facility] [place] [facility] (WNR) MEDICARE ADVANTAGE [facility] (WNR) Sep 29, 2010 [id number] 42 ONI DURAN PATIENT Selected Encounter This section includes the information on record at [place] for the Encounter. Date/Time Encounter Type Encounter Description Reason Pro vider Source Mar 23, 2024 10:20 AM Outpatient Encounter TELEPHONE PRIMARY CARE IHE Encounter Template Text not used by [place] Plan of Treatment: Future Appointments (+ 6 months) and Future Tests (+/- 45 days) The Plan of Treatment section includes future care activities for the patient from all [place] [facility]. This section includes future appointments and future orders which are active, pending or scheduled. Future Appointments This section includes appointments that were scheduled to occur 6 months from the date of the Encounter, up to a maximum of 20 appointments. The data comes from all [facility]. Appointment Date/Time Appointment Type Appointme nt Facility Name Mar 29, 2024 02:00 PM [facility] Apr 19, 2024 11:15 PM AMBULATORY - NONE [facility] Apr 28, 2024 02:30 PM AMBULATORY - MEDICINE [facility] May 11, 2024 12:42 PM AMBULATORY - MEDICINE [facility] May 11, 2024 05:00 PM AMBULATORY - NONE [facility] May 14, 2024 04:50 PM AMBULATORY - NONE [facility] Sep 08, 2024 01:15 PM AMBULATORY - MEDICINE [facility] Sep 08, 2024 01:30 PM AMBULATORY - MEDICINE [facility] Sep 08, 2024 02:30 PM AMBULATORY - MEDICINE [facility] Active, [...] from all [facility]. Test Date/Time Test Type Test Details Facility Name Apr 05, 2024 12:00 AM Laboratory - Chemi stry Order ALT/SGPT PLASMA SP [facility] Apr 05, 2024 12:00 AM Laboratory - Chemi stry Order AST/SGOT PLASMA SP [facility] Apr 05, 2024 12:00 AM Laboratory - Chemi stry Order CBC BLOOD SP ONCE [facility] Apr 05, 2024 12:00 AM Laboratory - Chemi stry Order BASIC METABOLIC PANEL+MG PLASMA SP [facility] Social History: Smoking Status (Most current) and Tobacco Use (All prior to encounter date) This section includes the most current, and the historical, smoking and tobacco- related health factors from the [facility] where the [...] 15 YRS OR MORE [facility] Jun 13, 2020 10:00 AM VA-TOBACCO FORMER USER [facility] Jun 13, 2020 10:00 AM VA-TOBACCO QUIT 15 YRS OR MORE [facility] May 20, 2019 12:18 PM VA-TOBACCO FORMER USER [facility] May 20, 2019 12:18 PM VA-TOBACCO QUIT 15 YRS OR MORE [facility] Jul 30, 2018 08:31 AM VA-TOBACCO FORMER USER [facility] Jul 30, 2018 08:31 AM VA-TOBACCO QUIT 15 YRS OR MORE [facility] Aug 25, 2017 08:04 AM FORMER TOBACCO USER 7Y OR GREATE R [facility] Nov 08, 2016 08:12 AM FORMER TOBACCO USER 7Y OR GREATE R [facility] Nov 29, 2015 12:46 PM FORMER TOBACCO USER 7Y OR GREATE R [facility] February 23, 2015 12:57 PM FORMER TOBACCO USER 7Y OR GREATE R [facility] January 27, 2014 10:10 AM FORMER TOBACCO USER 7Y OR GREATE R [facility] Mar 17, 2007 09:11 AM FORMER TOBACCO USER 7Y OR GREATE R [facility] Advance Directives: All historical and current Section Date Range: From patient's date of to the date document was created. This section includes ALL of a patient's completed or amended [place] Advance and Rescinded Directives. The entries below indicate that a directive exists for the patient, but an actual copy is not included with this document. The data comes from all [place] facilities. Date Advance Directives Provider Source Mar 17, 2007 ADVANCE DIRECTIVE TORRESALBERTO [facility] Pathology Reports: +/- 30 days [...] The data comes from all [place] treatment facilities. Date/Time Pathology Report Provider Source Mar 08, 2024 03:56 PM LR SURGICAL PATHOL OGY REPORT: LOCAL TITLE: LR SURGICAL PATHOLOGY REPORT STANDARD TITLE: PATHOLOGY REPORT DATE OF NOTE: MAR 08, 2024@15:56:47 ENTRY DATE: MAR 08, 2024@15:56:47 AUTHOR: FELIPE CABRERA EXP COSIGNER: URGENCY: STATUS: COMPLETED $APHDR Reporting Lab: [facility] [CLIA# [id number]] [place] [address] - - - - - - - [...] inked. (Coleman)Kiran MICROSCOPIC DESCRIPTION: Microscopic examination performed. [facility]. Diagnosis: Skin, Right preauricular cheek shave, biopsy-- - Sebaceous adenoma. /jeffry/ FELIPE CABRERA STAFF PATHOLOGIST Signed Mar 08, 2024@15:56 Performing Laboratory: Surgical Pathology Report Performed By: [facility] [CLIA# [id number]] [place] [address] $FTR - - - - - - - - - - - - - - - - - - - - - - - - - - - - - - - - - - - - - - - - (End of report) FELIPE CABRERA MD [facility] Date Mar 05, 2024 - - - - - - - - - - - - - - - - - - - - - - - - - - - - - - - - - - - - - - - - BETH DURAN STANDARD FORM 515 ID:[id number] SEX:M :1945 AGE: 78 LOC:1068 PCP: Ced Cline MD /jeffry/ FELIPE CABRERA STAFF PATHOLOGIST Signed: 03/08/2024 15:56 FELIPE CABRERA [facility] Encounter Notes: All associated encounter notes This section contains the clinical notes associated to the Encounter. Date/Time Encounter Note(s) Provider Source Mar 23, 2024 10:20 AM PRIMARY CARE NONVA NOTE: LOCAL TITLE: CO-MANAGED CARE NOTE STANDARD TITLE: PRIMARY CARE NONVA NOTE DATE OF NOTE: MAR 23, 2024@10:20 ENTRY DATE: MAR 23, 2024@10:20:15 AUTHOR: MARIA DEL CARMEN BREAUX COSIGNER: URGENCY: STATUS: COMPLETED CO-MANAGED CARE NOTE Has ADDENDA Received a request for: 1. Change Melatonin to 3mg tablet, take 2 tablets once nightly. Records scanned in [facility] [employer] and available for review. Rx written by: Wilda Bey Facility: [facility] Local provider phone #[phone] Local provider fax #[phone] Please alert me if med isn't approved or additional information is requested. If med is denied let me know what alternatives would be approved so I can communicate that information back to the local provider. /jeffry/ MARIA DEL CARMEN BREAUX LPN Co-Hand Or Machine Paster Signed: 03/23/2024 10:22 Receipt Acknowledged By: 03/23/2024 11:51 /zhanna Cline D.O. Staff Physician 03/23/2024 ADDENDUM STATUS: COMPLETED Above Rx ordered. /zhanna Cline D.O. Staff Physician Signed: 03/23/2024 11:51 MARIA DEL CARMEN BREAUX [facility]
--- OUTSIDE RECORDS SUMMARY | 2024-06-02 00:47 | XMS_ITS | Encounter Summary ---
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 ([place]) Organization [facility] Address [address] [place] [address] Care Team Providers Care Building Performance Consultant Name Role Phone LUCIAN CED Primary Care [...] Patient's Relationship to Policy Mar U-CARE OF [facility] (WNR) MEDICARE [facility] ([facility] Sep 29, 2019 [id number] 00 ONI DURAN MON PATIENT [place] [facility] (WNR) MEDICARE (M) [facility] ([facility] Sep 29, 2008 [id number] 1100 ONI DURAN MON PATIENT [place] [facility] (WNR) MEDICARE ADVANTAGE [facility] ([facility] Sep 29, 2008 [id number] 1100 ONI DURAN MON PATIENT [facility] (WNR) MEDICARE [facility] ([facility] Sep 29, 2019 [id number] 00 ONI DURAN PATIENT [facility] MCR (WNR) MEDICARE ADVANTAGE [facility] (WNR) Sep 29, 2010 [id number] 42 ONI DURAN PATIENT Selected Encounter This section includes the information on record at [place] for the Encounter. Date/Time Encounter Type Encounter Description Reason Provider Source Mar 18, 2024 04:36 PM Outpatient Encounter TELEPHONE/SURGERY ICD-10-CM D23.30 Other benign neoplasm of skin of unspecified part of face RAUL CARMONA Fidencio Encounter Template Text not used by [place] Assessments - Encounter Diagnoses This section includes the primary and secondary diagnoses documented for the Encounter. Date/Time Primary/Secondary Diagnosis Diagnosis Name Provider Source Mar 18, 2024 04:36 PM PRIMARY Other benign neoplasm of skin of unspecified part of face SCARLET TARIQ [facility] Plan of Treatment: Future Appointments (+ 6 months) and Future Tests (+/- 45 days) The Plan of Treatment section includes future care activities for the patient from all [place] treatmentfacilities. This section includes future appointments and future orders which are active, pending or scheduled. Future Appointments This section includes appointments that were scheduled to occur 6 months from the date of the Encounter, up to a maximum of 20 appointments. The data comes from all [place] treatment facilities. Appointment Date/Time Appointment Type Appointme nt Facility Name Mar 29, 2024 02:00 PM AM[place]UL[facility]ORY [place] [facility] Apr 19, 2024 11:15 PM [facility] Apr 28, 2024 02:30 PM [facility] May 11, 2024 12:42 PM [facility] May 11, 2024 05:00 PM [facility]ULATORY - NONE [place] [facility] May 14, 2024 04:50 PM [facility] Sep 08, 2024 01:15 PM [facility] Sep 08, 2024 01:30 PM [facility] Sep 08, 2024 02:30 PM [facility] Active, Pending, and Scheduled Orders This section includes a listing of several types of active, pending, and scheduled orders, including clinic medications orders, diagnostic test orders, procedure orders and consult orders; where the start date of the order is 45 days before the date of the Encounter or 45 days after the date of theEncounter. The data comes from all [place] treatment facilities. Test Date/Time Test Type Test Details Facility Name Apr 05, 2024 12:00 AM Laboratory - Chemi stry Order AST/SGOT PLASMA SP [facility] Apr 05, 2024 12:00 AM Laboratory - Chemi stry Order CBC BLOOD SP ONCE [facility] Apr 05, 2024 12:00 AM Laboratory - Chemi stry Order BASIC METABOLIC PANEL+MG PLASMA SP [facility] Apr 05, 2024 12:00 AM Laboratory - Chemi stry Order ALT/SGPT PLASMA SP [facility] Social History: Smoking Status (Most current) and Tobacco Use (All prior to encounter date) This section includes the most current, and the historical, smoking and tobacco- related health factors from the [place] facility where the Encounter took place. Current [...] FORMER TOBACCO USER 7Y OR SERA Nguyen [facility] January 27, 2014 10:10 AM FORMER TOBACCO USER 7Y OR SERA Nguyen [facility] Mar 17, 2007 09:11 AM FORMER TOBACCO USER 7Y OR SERA Nguyen [facility] Advance Directives: [...] Mar 17, 2007 ADVANCE DIRECTIVE JENNIFERALBERTO Anjana [facility] Pathology Reports: +/- 30 days [...] the Encounter. The data comes from all [place] treatment facilities. Date/Time Pathology Report Provider Source Mar 08, 2024 03:56 PM LR SURGICAL PATHOL OGY REPORT: LOCAL TITLE: LR SURGICAL PATHOLOGY REPORT STANDARD TITLE: PATHOLOGY REPORT DATE OF NOTE: MAR 08, 2024@15:56:47 ENTRY DATE: MAR 08, 2024@15:56:47 AUTHOR: FELIPE CABRERA EXP COSIGNER: URGENCY: STATUS: COMPLETED $APHDR Reporting Lab: [facility] [CLIA# [id number]] [place] [address] - - - - - - - [...] - - - - PREOPERATIVE DIAGNOSIS: R/O [facility] - - - - - - - [...] CE. (D)SMcCoy MICROSCOPIC DESCRIPTION: Microscopic examination performed. ANNA. Diagnosis: Skin, Right preauricular cheek shave, biopsy-- - Sebaceous adenoma. /jeffry/ FELIPE CABRERA STAFF PATHOLOGIST Signed Mar 08, 2024@15:56 Performing Laboratory: Surgical Pathology Report Performed By: [facility] [CLIA# [id number]] [place] [address] $FTR - - - - - - [...] - - BETH DURAN STANDARD FORM 515 ID:[id number] SEX:M :1945 AGE: 78 LOC:1068 PCP: Ced Cline MD /jeffry/ FELIPE CABRERA STAFF PATHOLOGIST Signed: 03/08/2024 15:56 FELIPE CABRERA [facility] Encounter Notes: All associated encounter notes This section contains the clinical notes associated to the Encounter. Date/Time Encounter Note(s) Provider Source Mar 18, 2024 04:36 PM COMMUNICATION NOTE : LOCAL TITLE: PATIENT CONTACT NOTE - DERMATOLOGY STANDARD TITLE: COMMUNICATION NOTE DATE OF NOTE: MAR 18, 2024@16:36 ENTRY DATE: MAR 18, 2024@16:36:38 AUTHOR: SCARLET TARIQ COSIGNER: URGENCY: STATUS: COMPLETED PATIENT CONTACT NOTE - DERMATOLOGY Has ADDENDA Biopsy results no treatment Results: MICROSCOPIC DESCRIPTION: Microscopic examination performed. ANNA. Diagnosis: Skin, Right preauricular cheek shave, biopsy-- - Sebaceous adenoma. /jeffry/ FELIPE CABRERA STAFF PATHOLOGIST Signed Mar 08, 2024@15:56 Informed patient's , Azra Duran of the results above. Discussed that the slides were reviewed with Dr. Cary Aguilar and agree with the plan to clinically monitor. Discussed with the patietn's that treatment options include WLE vs clinically monitor vs re-biopsy if the lesion acutely changes. Patient's prefers to clincally monitor as patient did not tolerate the MMS procedure well and also has dental procedures coming up and also is nervous given that the recovery is very difficult for the patient. Will plan to clinically monitor, next follow up scheduled for September 2024. Follow up as planned. Plan discussed with Dr. GRANADOS, Dr. Carmona and Dr. Cervantes Dermatology Problem List: UBSE: 10/21/23 Face, Arms [...] Seborrheic Dermatitis - start ketoconazole shampoo TIW # Sebaceous Adenoma - R PreAuricular Cheek s/p shave bx 03/04/24 Total encounter time: 15 min Staff: Dr. Carmona /jeffry/ SCARLET TARIQ MD RESIDENT Signed: 03/18/2024 16:44 Receipt Acknowledged By: 03/19/2024 21:49 /jeffry/ RAUL CARMONA MD STAFF PHYSICIAN 03/19/2024 ADDENDUM STATUS: COMPLETED I discussed patient with the resident, and agree with the plan as written in the resident's note. /zhanna CARMONA MD STAFF PHYSICIAN Signed: 03/19/2024 21:49 SCARLET TARIQ [facility]
--- OUTSIDE RECORDS SUMMARY | 2024-06-02 00:47 | XMS_ITS | Encounter Summary ---
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 [place] Organization [facility] Address [address] [place] [address] Care Team Providers Care Boat Repairer Name Role Phone LUCIANCED Primary Care Provider [...] Relationship to Policy Mar U-CARE OF [place] [facility] (WNR) MEDICARE [facility] Sep 29, 2019 [id number] 00 ONI DURAN MON PATIENT [place] [facility] ([place]) MEDICARE (M) [facility] ([facility] Sep 29, 2008 [id number] ONI DURAN MON PATIENT [place] [facility] ([place]NR) MEDICARE ADVANTAGE [facility] ([facility] [facility] Sep 29, 2008 [id number] 1100 RENEESI MON PATIENT [facility] (WNR) MEDICARE [facility] Sep 29, 2019 [id number] 00 ONI DURAN PATIENT [facility] [place] [facility] (WNR) MEDICARE ADVANTAGE [facility] (WNR) Sep 29, 2010 [id number] 42 ONI DURAN PATIENT Selected Encounter This section includes the information on record at [place] for the Encounter. Date/Time Encounter Type Encounter Description Reason Pro vider Source Mar 29, 2024 01:15 PM Outpatient Encounter TELEPHONE PRIMARY CARE IHE Encounter Template Text not used by [place] Plan of Treatment: Future Appointments (+ 6 months) and Future Tests (+/- 45 days) The Plan of Treatment section includes future care activities for the patient from all [place] [facility] This section includes future appointments and future orders which are active, pending or scheduled. Future Appointments This section includes appointments that were scheduled to occur 6 months from the date of the Encounter, up to a maximum of 20 appointments. The data comes from all [facility]. Appointment Date/Time Appointment Type Appointme nt Facility Name Apr 19, 2024 11:15 PM AMBULATORY - NONE [facility] Apr 28, 2024 02:30 PM AMBULATORY - MEDICINE [facility] May 11, 2024 12:42 PM AMBULATORY - MEDICINE [facility] May 11, 2024 05:00 PM AMBULATORY - NONE [facility] May 14, 2024 04:50 PM AMBULATORY - NONE [facility] Sep 08, 2024 01:15 PM AMBULATORY - MEDICINE [facility] Sep 08, 2024 01:30 PM AMBULATORY - MEDICINE [facility] Sep 08, 2024 02:30 PM AMBULATORY - MEDICINE [facility] Active, Pending, and [...] of theEncounter. The data comes from all [facility]. Test Date/Time Test Type Test Details Facility Name Apr 05, 2024 12:00 AM Laboratory - Chemistry Order AST/SGOT PLASMA [facility] Apr 05, 2024 12:00 AM Laboratory - Chemistry Order ALT/SGPT PLASMA [facility] Apr 05, 2024 12:00 AM Laboratory - Chemistry Order CBC BLOOD SP ONCE [facility] Apr 05, 2024 12:00 AM Laboratory - Chemistry Order BASIC METABOLIC PANEL+MG PLASMA SP [facility] May 11, 2024 04:49 PM Laboratory - Microbiology Order CULTURE & SUSCEPTIBILITY URINE WC ONCE [facility] May 13, 2024 12:00 AM Laboratory - Chemistry Order LIPID PANEL,NON-FASTING PLASMA SP ONCE [facility] May 13, 2024 12:00 AM Laboratory - Chemistry Order BASIC METABOLIC PANEL+MG PLASMA SP ONCE [facility] May 13, 2024 12:00 AM Laboratory - Chemistry Order ALBUMIN/CREATININE RATIO URINE URINE WC ONCE [facility] Social History: Smoking Status (Most current) and Tobacco Use (All prior to encounter date) This section includes the most current, and the historical, smoking and tobacco- related health factors from the [place] facility where the Encounter took place. Current Smoking Status This section includes the most current smoking, or tobacco-related health factor, from the [place] facility where the Encounter took place. Date/Time Current Smoking Status Comment Facil ity Sep 10, 2023 03:30 PM VA-TOBACCO FORMER USER [facility] Tobacco Use History This section includes a history of the smoking, or tobacco-related health factors, that were collected on or before the date of the Encounter. The data comes from the [place] facility where the Encounter took place. Date/Time Smoking Status/Tobacco Use Comment F acility Sep 10, 2023 03:30 PM VA-TOBACCO QUIT [address] [facility] Jun 13, 2020 10:00 AM VA-TOBACCO FORMER USER [facility] Jun 13, 2020 10:00 AM VA-TOBACCO QUIT [address] [facility] May 20, 2019 12:18 PM VA-TOBACCO FORMER USER [facility] May 20, 2019 12:18 PM VA-TOBACCO QUIT [address] [facility] Jul 30, 2018 08:31 AM VA-TOBACCO FORMER USER [facility] Jul 30, 2018 08:31 AM VA-TOBACCO QUIT [address] [facility] Aug 25, 2017 08:04 AM FORMER TOBACCO USER 7Y OR GREATE R [facility] Nov 08, 2016 08:12 AM FORMER TOBACCO USER 7Y OR GRE[facility] Nov 29, 2015 12:46 PM FORMER TOBACCO USER 7Y OR GRE[facility] February 23, 2015 12:57 PM FORMER TOBACCO USER 7Y OR GRE[facility] R [facility] January 27, 2014 10:10 AM FORMER TOBACCO USER 7Y OR [facility] Wendy [facility] Mar 17, 2007 09:11 AM FORMER TOBACCO USER 7Y OR [facility] Advance Directives: All historical and current Section Date Range: From patient's date of to the date document was created. This section includes ALL of a patient's completed or amended [place] Advance and Rescinded Directives. The entries below indicate that a directive exists for the patient, but an actual copy is not included with this document. The data comes from all [place] facilities. Date Advance Directives Provider Source Mar 17, 2007 ADVANCE DIRECTIVE TORRESRIANAALBERTO [facility] Pathology Reports: +/- 30 days of [...] the Encounter. The data comes from all [place] treatment facilities. Date/Time Pathology Report Provider Source Mar 08, 2024 03:56 PM LR SURGICAL PATHOL OGY REPORT: LOCAL TITLE: LR SURGICAL PATHOLOGY REPORT STANDARD TITLE: PATHOLOGY REPORT DATE OF NOTE: MAR 08, 2024@15:56:47 ENTRY DATE: MAR 08, 2024@15:56:47 AUTHOR: FELIPE CABRERA EXP COSIGNER: URGENCY: STATUS: COMPLETED $APHDR Reporting Lab: [facility] [CLIA# [id number]] [place] [address] - - - - - - - [...] CE. (D)SMcCoy MICROSCOPIC DESCRIPTION: Microscopic examination performed. [facility]. Diagnosis: Skin, Right preauricular cheek shave, biopsy-- - Sebaceous adenoma. /jeffry/ FELIPE CABRERA STAFF PATHOLOGIST Signed Mar 08, 2024@15:56 Performing Laboratory: Surgical Pathology Report Performed By: [facility] [CLIA# [id number]] [place] [address] $FTR - - - - - - - - - - - - - - - - - - - - - - - - - - - - - - - - - - - - - - - - (End of report) FELIPE CABRERA MD [facility] Date Mar 05, 2024 - - - - - - - - - - - - - - - - - - - - - - - - - - - - - - - - - - - - - - - - BETH DURAN STANDARD FORM 515 ID:[id number] SEX:M :1945 AGE: 78 LOC:1068 PCP: Ced Cline MD /jeffry/ FELIPE CABRERA STAFF PATHOLOGIST Signed: 03/08/2024 15:[address] [facility] Encounter Notes: All associated encounter notes This section contains the clinical notes associated to the Encounter. Date/Time Encounter Note(s) Provider Source Mar 29, 2024 01:15 PM NURSING OUTPATIENT NOTE: LOCAL TITLE: MEDICINE CLINIC NURSING RN NOTE STANDARD TITLE: NURSING OUTPATIENT NOTE DATE OF NOTE: MAR 29, 2024@13:15 ENTRY DATE: MAR 29, 2024@13:15:12 AUTHOR: JACQUI DE LA GARZA EXP COSIGNER: URGENCY: STATUS: COMPLETED TYPE OF VISIT: Telephone REASON FOR VISIT: LVM to f/u on pt n/v. requested call back /jeffry/ JACQUI DE LA GARZA RN REGISTERED NURSE Signed: 03/29/2024 13:[address] [facility]
--- OUTSIDE RECORDS SUMMARY | 2024-06-02 00:47 | XMS_ITS | Encounter Summary ---
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 Organization [place] Address [address] [place] [address] Care Team Providers Care Chain Repairer Name Role Phone CED EPSTEIN Primary Care [...] to Policy Mar [facility] [facility] (WNR) MEDICARE ADVANTAGE [facility] ([facility]) Sep 29, 2019 [id number] [phone] ONI DURAN MON PATIENT [facility] [place] [facility] (WNR) MEDICARE (M) [facility] (R) Sep 29, 2008 [id number] ONI DURAN MON PATIENT [facility] [place] [facility] (WNR) MEDICARE ADVANTAGE [facility] (WNR) Sep 29, 2008 [id number] [phone] [id number] ONI DURAN MON PATIENT [facility] (WNR) MEDICARE ADVANTAGE [facility] ([facility]) Sep 29, 2019 [id number] ONI DURAN PATIENT [facility] MCR (WNR) MEDICARE ADVANTAGE MCR (WNR) Sep 29, 2010 [id number] 42 ONI DURAN PATIENT Selected Encounter This section includes the information on record at [place] for the Encounter. Date/Time Encounter Type Encounter Description Reason Provider Source Mar 25, 2024 04:01 PM HC PRO PHONE CALL 5-10 MIN TELEPHONE PRIMARY CARE ICD-10-CM Z71.9 Counseling, unspecified JACQUI DE LA GARZA Fidencio Encounter Template Text not used by [place] Assessments - Encounter Diagnoses This section includes the primary and secondary diagnoses documented for the Encounter. Date/Time Primary/Secondary Diagnosis Diagnosis Name Provider Source Mar 25, 2024 04:01 PM PRIMARY Counseling, unspecified JACQUI DE LA GARZA [facility] Plan of Treatment: Future Appointments (+ [...] [place] treatment facilities. Appointment Date/Time Appointment Type Appointme nt Facility Name Mar 29, 2024 02:00 PM [facility] Apr 19, 2024 11:15 PM [facility] Apr 28, 2024 02:30 PM [facility] May 11, 2024 12:42 PM [facility] May 11, 2024 05:00 PM [facility] May 14, 2024 04:50 PM [facility] Sep 08, 2024 01:15 PM [facility] Sep 08, 2024 01:30 PM [facility] Sep 08, 2024 02:30 PM AMBULATORY - MEDICINE [facility] Active, Pending, and Scheduled Orders This section includes a listing of several types of active, pending, and scheduled orders, including clinic medications orders, diagnostic test orders, procedure orders and consult orders; where the start date of the order is 45 days before the date of the Encounter or 45 days after the date of theEncounter. The data comes from all [place] treatment facilities. Test Date/Time Test Type Test Details Facility Name Apr 05, 2024 12:00 AM Laboratory - Chemi stry Order AST/SGOT PLASMA SP [facility] Apr 05, 2024 12:00 AM Laboratory - Chemi stry Order CBC BLOOD SP ONCE [facility] Apr 05, 2024 12:00 AM Laboratory - Chemi stry Order BASIC METABOLIC PANEL+MG PLASMA SP [facility] Apr 05, 2024 12:00 AM Laboratory - Chemi stry Order ALT/SGPT PLASMA SP [facility] Social History: Smoking Status (Most current) and Tobacco Use (All prior to encounter date) This section includes the most current, and the historical, smoking and tobacco- related health factors from the [place] facility where the Encounter took place. Current Smoking Status This section includes the most current smoking, or tobacco-related health factor, from the [place] facility where the Encounter took place. Date/Time Current Smoking Status Comment Facil ity Sep 10, 2023 03:30 PM VA-TOBACCO FORMER USER [facility] Tobacco Use History This section includes a history of the smoking, or tobacco-related health factors, that were collected on or before the date of the Encounter. The data comes from the [place] facility where the Encounter took place. Date/Time Smoking Status/Tobacco Use Comment F acility Sep 10, 2023 03:30 PM VA-TOBACCO QUIT 15 YRS OR MORE [facility] Jun 13, 2020 10:00 AM VA-TOBACCO FORMER USER [facility] Jun 13, 2020 10:00 AM VA-TOBACCO QUIT 15 YRS OR MORE [facility] May 20, 2019 12:18 PM VA-TOBACCO FORMER USER [facility] May 20, 2019 12:18 PM VA-TOBACCO QUIT 15 YRS OR MORE [facility] Jul 30, 2018 08:31 AM VA-TOBACCO FORMER USER [facility] Jul 30, 2018 08:31 AM VA-TOBACCO QUIT 15 YRS OR MORE [facility] Aug 25, 2017 08:04 AM FORMER TOBACCO USER 7Y OR GREATE R [facility] Nov 08, 2016 08:12 AM FORMER TOBACCO USER 7Y OR GREATE R [facility] Nov 29, 2015 12:46 PM FORMER TOBACCO USER 7Y OR GREATE R [facility] February 23, 2015 12:57 PM FORMER TOBACCO USER 7Y OR GREATE R [facility] January 27, 2014 10:10 AM FORMER TOBACCO USER 7Y OR GREATE R [facility] Mar 17, 2007 09:11 AM FORMER TOBACCO USER 7Y OR DELMI R [facility] Advance Directives: All historical and current [...] Source Mar 17, 2007 ADVANCE DIRECTIVE JENNIFERALBERTO Yeung SHIVA [facility]AS[facility] Pathology Reports: +/- 30 days of [...] data comes from all [place] treatment facilities. Date/Time Pathology Report Provider Source Mar 08, 2024 03:56 PM LR SURGICAL PATHOL OGY REPORT: LOCAL TITLE: LR SURGICAL PATHOLOGY REPORT STANDARD TITLE: PATHOLOGY REPORT DATE OF NOTE: MAR 08, 2024@15:56:47 ENTRY DATE: MAR 08, 2024@15:56:47 AUTHOR: FELIPE CABRERA EXP COSIGNER: URGENCY: STATUS: COMPLETED $APHDR Reporting Lab: [facility] [CLIA# [id number]] [place] [address] - - - - - - - [...] - - - PATHOLOGY REPORT Accession No. [id number] - - - - - [...] Performing Laboratory: Surgical Pathology Report Performed By: [facility] [CLIA# [id number]] [facility] [address] $FTR - - - - - - - - - - - - - - - - - - - - - - - - - - - - - - - - - - - - - - - - (End of report) FELIPE CABRERA MD [facility] Date Mar 05, 2024 - - - - - - - - - - - - - - - - - - - - - - - - - - - - - - - - - - - - - - - - BETH DURAN STANDARD FORM 515 ID:[id number] SEX:M :1945 AGE: 78 LOC:1068 PCP: Ced Epstein MD /jeffry/ FELIPE CABRERA STAFF PATHOLOGIST Signed: 03/08/2024 15:56 FELIPE CABRERA [facility] Encounter Notes: All associated encounter notes This section contains the clinical notes associated to the Encounter. Date/Time Encounter Note(s) Provider Source Mar 25, 2024 04:01 PM NURSING OUTPATIENT NOTE: LOCAL TITLE: MEDICINE CLINIC NURSING RN NOTE STANDARD TITLE: NURSING OUTPATIENT NOTE DATE OF NOTE: MAR 25, 2024@16:01 ENTRY DATE: MAR 25, 2024@16:01:06 AUTHOR: JACQUI DE LA GARZA COSIGNER: URGENCY: STATUS: COMPLETED TYPE OF VISIT: Telephone REASON FOR VISIT: pt lives at assisted living facility w provider on site, reports that he has been vomitting for the past 3 weeks sometimes up to twice a day. Seems to be random sometimes occurs with eating other times occurs when he gets up in the morning, doesn't seem to have any consistent patterns. Pt reports he gets a 5 second warning prior to vomitting. pt reports feeling dizzy in the morning when he gets up. Denies choking when eating or drinking or difficulties swallowing As of today hasn't thrown up for 2 days. reports facility has been giving him an anti naseau medication PRN that seems to be effective Fluids: pt reports drinking a lot of fluids uses juani cup denies any cramping in his stomach or other associated symptoms. No other residents in his facility are sick that he is aware of. Blood sugars: 03/25 am: fasting 114 03/24 am: fasting 77 *pt reports no symptoms and states this is the lowest # he has had BM: regular, denies any loose stools BP 160/90s pt reports it's his normal pt verbalized understanding to go to ED if he is unable to keep down fluids or has any acute concerns. Pt prefers to see how things go over the weekend as the past 2 days have been better and program writer will check back on Friday ALLERGIES: FACILITY ALLERGY/ADR -------- [facility] DOXYCYCLINE [facility] LISINOPRIL [facility] PENICILLIN [facility] SULFA DRUGS [facility] AMLODIPINE [facility] DOXYCYCLINE [facility] LISINOPRIL [facility] PENICILLIN [facility] SULFA DRUGS /es/ JACQUI DE LA GARZA RN REGISTERED NURSE Signed: 03/25/2024 16:07 JACQUI DE LA GARZA [facility]
--- OUTSIDE RECORDS SUMMARY | 2024-06-02 00:47 | XMS_ITS | Encounter Summary ---
Author Name [facility] Organization [facility] Address [address] [place] [address] Care Team Providers Care Speech Language Pathology Assistant Name Role Phone CED EPSTEIN Primary Care [...] Relationship to Policy Mar [facility] [place] [facility] (WNR) MEDICARE ADVANTAGE [facility] ([facility]) Sep 29, 2019 [id number] [phone] RENEE,SI MON PATIENT [facility] [place] [facility] ([place]NR) MEDICARE (M) [facility] ([facility]) Sep 29, 2008 [id number] RENEE,SI MON PATIENT [facility] [place] [facility] (WNR) MEDICARE ADVANTAGE [facility] ([facility]) Sep 29, 2008 [id number] RENEE,SI MON PATIENT [facility] (WNR) MEDICARE ADVANTAGE [facility] ([facility]) Sep 29, 2019 [id number] 00 ONI DURAN PATIENT [facility] [place] MCR (WNR) MEDICARE ADVANTAGE MCR (WNR) Sep 29, 2010 [id number] 42 ONI DURAN PATIENT Selected Encounter This section includes the information on record at [place] for the Encounter. Date/Time Encounter Type Encounter Description Reason Pro vider Source IHE Encounter Template Text not used by [place] Advance Directives: All historical and current Section [...] Mar 17, 2007 ADVANCE DIRECTIVE ALBERTO RODRIGUEZ [facility]
--- OUTSIDE RECORDS SUMMARY | 2024-06-02 00:47 | XMS_ITS | Encounter Summary ---
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 [place] [facility] Address [address] [place] [address] Care Team Providers Care French Cord Binder Name Role Phone LUCIANCED Primary Care Provider [...] Relationship to Policy Mar [facility] [place] [facility] ([place]NR) MEDICARE [facility] ([facility]) Sep 29, 2019 [id number] ONI DURAN MON PATIENT [facility] [place] [facility] ([place]NR) MEDICARE (M) [facility] ([facility]) Sep 29, 2008 [id number] RENEE,SI MON PATIENT [facility] [place] [facility] (WNR) MEDICARE ADVANTAGE [facility] (R) Sep 29, 2008 [id number] RENEE,SI MON PATIENT [facility] (WNR) MEDICARE [facility] ([facility]) Sep 29, 2019 [id number] 00 ONI DURAN PATIENT [facility] [place] MCR (WNR) MEDICARE ADVANTAGE MCR (WNR) Sep 29, 2010 [id number] 42 ONI DURAN PATIENT Selected Encounter This section includes the information on record at [place] for the Encounter. Date/Time Encounter Type Encounter Description Reason Pro vider Source Mar 12, 2024 09:06 AM Outpatient Encounter PRIMARY CARE/MEDICINE IHE Encounter Template Text not used by [place] Plan of Treatment: Future Appointments (+ 6 months) and Future Tests (+/- 45 days) The Plan of Treatment section includes future care activities for the patient [facility] [place] [facility] This section includes future appointments and future orders which are active, pending or scheduled. Future Appointments This section includes appointments that were scheduled to occur 6 months from the date of the Encounter, up to a maximum of 20 appointments. The data comes from all [facility]. Appointment Date/Time Appointment Type Appointme nt Facility Name Mar 29, 2024 02:00 PM [facility] Apr 19, 2024 11:15 PM AMBULATORY - NONE [facility] Apr 28, 2024 02:30 PM AMBULATORY - MEDICINE [facility] May 11, 2024 12:42 PM AMBULATORY - MEDICINE [facility] May 11, 2024 05:00 PM AMBULATORY - NONE [facility] May 14, 2024 04:50 PM AMBULATORY - NONE [facility] Sep 08, 2024 01:15 PM AMBULATORY - MEDICINE [facility] Sep 08, 2024 01:30 PM AMBULATORY - MEDICINE [facility] Sep 08, 2024 02:30 PM AMBULATORY - MEDICINE [facility] Active, Pending, and Scheduled Orders This section includes a listing of several types of active, pending, and scheduled orders, including clinic medications orders, diagnostic test orders, procedure orders and consult orders; where the start date of the order is 45 days before the date of the Encounter or 45 days after the date of theEncounter. The data comes from all [facility]. Test Date/Time Test Type Test Details Facility [...] and tobacco- related health factors from the [place] facility where the Encounter took place. Current Smoking Status This section includes the most current smoking, or tobacco-related health factor, from the [place] facility where the Encounter took place. Date/Time Current Smoking Status Comment Facil ity Sep 10, 2023 03:30 PM VA-TOBACCO FORMER USER [facility] Tobacco Use History This [...] Mar 17, 2007 ADVANCE DIRECTIVE ALBERTO RODRIGUEZ [facility] Pathology Reports: +/- 30 days of [...] data comes from all [place] treatment facilities. Date/Time Pathology Report Provider Source Mar 08, 2024 03:56 PM LR SURGICAL PATHOL OGY REPORT: LOCAL TITLE: LR SURGICAL PATHOLOGY REPORT STANDARD TITLE: PATHOLOGY REPORT DATE OF NOTE: MAR 08, 2024@15:56:47 ENTRY DATE: MAR 08, 2024@15:56:47 AUTHOR: FELIPE CABRERA EXP COSIGNER: URGENCY: STATUS: COMPLETED $APHDR Reporting Lab: [facility] [CLIA# [id number]] [place] [address] - - - - - - - [...] inked. (Coleman)Kiran MICROSCOPIC DESCRIPTION: Microscopic examination performed. [facility]. Diagnosis: Skin, Right preauricular cheek shave, biopsy-- - Sebaceous adenoma. /jeffry/ FELIPE CABRERA STAFF PATHOLOGIST Signed Mar 08, 2024@15:56 Performing Laboratory: Surgical Pathology Report Performed By: [facility] [CLIA# [id number]] [place] [address] $FTR - - - - - - - - - - - - - - - - - - - - - - - - - - - - - - - - - - - - - - - - (End of report) FELIPE CABRERA MD [facility] Date Mar 05, 2024 - - - - - - - - - - - - - - - - - - - - - - - - - - - - - - - - - - - - - - - - BETH DURAN STANDARD FORM 515 ID:[id number] SEX:M :1945 AGE: 78 LOC:1068 PCP: Ced Cline MD /jeffry/ FELIPE CABRERA STAFF PATHOLOGIST Signed: 03/08/2024 15:56 FELIPE CABRERA [facility] Encounter Notes: All associated encounter notes This section contains the clinical notes associated to the Encounter. Date/Time Encounter Note(s) Provider Source Mar 12, 2024 09:06 AM HOME HEALTH REFERR [place] NOTE: LOCAL TITLE: [facility] STANDARD TITLE: HOME HEALTH REFERRAL NOTE DATE OF NOTE: MAR 12, 2024@09:06 ENTRY DATE: MAR 12, 2024@09:06:33 AUTHOR: LAUREL BROWN EXP COSIGNER: URGENCY: STATUS: COMPLETED HOME HEALTH CARE CERTIFICATION AND PLAN OF CARE SIGNED BY: Dr. Ced Cline, [facility] Certification period From: Feb To: Apr /jeffry/ LAUREL BROWN RN Signed: 03/12/2024 09:07 LAUREL BROWN [facility]
--- OUTSIDE RECORDS SUMMARY | 2024-06-02 00:47 | XMS_ITS | Encounter Summary ---
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 [place] Organization [facility] Address [address] [place] [address] Care Team Providers Care Host/Hostess Name Role Phone LUCIAN CED Primary Care [...] [facility] [place] [facility] ([place]NR) MEDICARE [facility]) Sep 29, 2019 [id number] [phone] ONI DURAN MON PATIENT [facility] [place] [facility] ([place]) MEDICARE (M) [facility] ([facility]) Sep 29, 2008 [id number] OIN DURAN MON PATIENT [facility] [place] [facility] ([place]NR) MEDICARE ADVANTAGE [facility] (R) Sep 29, 2008 [id number] ONI DURAN MON PATIENT [facility] (WNR) MEDICARE ADVANTAGE [facility] ([facility]) Sep 29, 2019 [id number] 00 ONI DURAN PATIENT [facility] [place] MCR (WNR) MEDICARE ADVANTAGE MCR (WNR) Sep 29, 2010 [id number] 42 ONI DURAN PATIENT Selected Encounter This section includes the information on record at [place] for the Encounter. Date/Time Encounter Type Encounter Description Reason Pro vider Source Mar 18, 2024 01:12 PM Outpatient Encounter COMMUNITY CARE CONSULT IHE Encounter Template Text not used by [place] Plan of Treatment: Future Appointments (+ 6 months) and Future Tests (+/- 45 days) The Plan of Treatment section includes future care activities for the patient from all [place] [facility] This section includes future appointments and future orders which are active, pending or scheduled. Future Appointments This section includes appointments that were scheduled to occur 6 months from the date of the Encounter, up to a maximum of 20 appointments. The data comes from all [facility] [place]. Appointment Date/Time Appointment Type Appointme nt Facility Name Mar 29, 2024 02:00 PM [facility] [place] [facility] Apr 19, 2024 11:15 PM AMBULATORY - NONE [facility] Apr 28, 2024 02:30 PM AMBULATORY - [facility]ICINE [facility] May 11, 2024 12:42 PM AMBULATORY - MEDICINE [facility] May 11, 2024 05:00 PM AMBULATORY - NONE [facility] May 14, 2024 04:50 PM AMBULATORY - NONE [facility] Sep 08, 2024 01:15 PM AMBULATORY - MEDICINE [facility] Sep 08, 2024 01:30 PM AMBULATORY - MEDICINE [facility] Sep 08, 2024 02:30 PM AMBULATORY - MEDICINE [facility] Active, Pending, and Scheduled Orders This section includes a listing of several types of active, pending, and scheduled orders, including clinic medications orders, diagnostic test orders, procedure orders and consult orders; where the start date of the order is 45 days before the date of the Encounter or 45 days after the date of theEncounter. The data comes from all [facility] [place]. Test Date/Time Test Type Test Details Facility Name Apr 05, 2024 12:00 AM Laboratory - Chemi stry Order AST/SGOT PLASMA SP [facility] Apr 05, 2024 12:00 AM Laboratory - Chemi stry Order CBC BLOOD SP ONCE [facility] Apr 05, 2024 12:00 AM Laboratory - Chemi stry Order BASIC METABOLIC PANEL+MG PLASMA SP [facility] Apr 05, 2024 12:00 AM Laboratory - Chemi stry Order ALT/SGPT PLASMA [facility] Social History: Smoking Status (Most current) and [...] 10, 2023 03:30 PM VA-TOBACCO FORMER USER [facility] Tobacco Use [...] 15 YRS OR MORE [facility] Jun 13, 2020 10:00 AM VA-TOBACCO FORMER USER [facility] Jun 13, 2020 10:00 AM VA-TOBACCO QUIT 15 YRS OR MORE [facility] May 20, 2019 12:18 PM VA-TOBACCO FORMER USER [facility] May 20, 2019 12:18 PM VA-TOBACCO QUIT 15 YRS OR MORE [facility] Jul 30, 2018 08:31 AM VA-TOBACCO FORMER USER [facility] Jul 30, 2018 08:31 AM VA-TOBACCO QUIT 15 YRS OR MORE [facility] Aug 25, 2017 08:04 AM FORMER TOBACCO USER 7Y OR GREATE R [facility] Nov 08, 2016 08:12 AM FORMER TOBACCO USER 7Y OR GREATE R [facility] Nov 29, 2015 12:46 PM FORMER TOBACCO USER 7Y OR GREATE R [facility] February 23, 2015 12:57 PM FORMER TOBACCO USER 7Y OR GREATE R [facility] January 27, 2014 10:10 AM FORMER TOBACCO USER 7Y OR GREATE R [facility] Mar 17, 2007 09:11 AM FORMER TOBACCO USER 7Y OR GREATE R [facility] Advance Directives: All historical and current [...] Mar 17, 2007 ADVANCE DIRECTIVE ALBERTO RODRIGUEZ [facility] Pathology Reports: +/- 30 days of [...] the Encounter. The data comes from all [place] treatment facilities. Date/Time Pathology Report Provider Source Mar 08, 2024 03:56 PM LR SURGICAL PATHOL OGY REPORT: LOCAL TITLE: LR SURGICAL PATHOLOGY REPORT STANDARD TITLE: PATHOLOGY REPORT DATE OF NOTE: MAR 08, 2024@15:56:47 ENTRY DATE: MAR 08, 2024@15:56:47 AUTHOR: FELIPE CABRERA EXP COSIGNER: URGENCY: STATUS: COMPLETED $APHDR Reporting Lab: [facility] [CLIA# [id number]] [place] [address] - - - - - - - [...] inked. (Coleman)Kiran MICROSCOPIC DESCRIPTION: Microscopic examination performed. [facility]. Diagnosis: Skin, Right preauricular cheek shave, biopsy-- - Sebaceous adenoma. /jeffry/ FELIPE CABRERA STAFF PATHOLOGIST Signed Mar 08, 2024@15:56 Performing Laboratory: Surgical Pathology Report Performed By: [facility] [CLIA# [id number]] [place] [address] $FTR - - - - - - - - - - - - - - - - - - - - - - - - - - - - - - - - - - - - - - - - (End of report) FELIPE CABRERA MD [facility] Date Mar 05, 2024 - - - - - - - - - - - - - - - - - - - - - - - - - - - - - - - - - - - - - - - - BETH DURAN STANDARD FORM 515 ID:[id number] SEX:M :1945 AGE: 78 LOC:1068 PCP: Ced Cline MD /jeffry/ FELIPE CABRERA STAFF PATHOLOGIST Signed: 03/08/2024 15:56 FELIPE CABRERA [facility] Encounter Notes: All associated encounter notes This section contains the clinical notes associated to the Encounter. Date/Time Encounter Note(s) Provider Source Mar 18, 2024 01:12 PM NONVA NOTE: LOCAL TITLE: COMMUNITY CARE UNABLE TO CONTACT LETTER (AUTOPRINT) STANDARD TITLE: NONVA NOTE DATE OF NOTE: MAR 18, 2024@13:12 ENTRY DATE: MAR 18, 2024@13:13:03 AUTHOR: MARGARETH GAVIN EXP COSIGNER: URGENCY: STATUS: COMPLETED Feb BETH DURAN [address] [place] [address] Dear BETH DURAN, Your Community Care team was unsuccessful in reaching you by telephone a voice mail was left. This is regarding your referral for COMMUNITY CARE-DENTAL GEN SERV. It is important to contact your community care team so we can assist you in meeting your health care needs. You have been referred to care in the community, but you must contact us first. This referral authorization will be canceled in 14 days from the date of this letter if your community care team does not hear from you. Please note: This letter is only used to inform you of our attempt to contact you for care in the community. If you receive this letter after an appointment has been made for you or if you have spoken to [facility], please disregard this letter and dispose of properly. If you have questions regarding your care, please contact [facility] Office of Community Care by calling [phone] during the hours of 8:30AM - 3:00PM. Thank you for the opportunity to serve you. Sincerely, [facility] (VACC) /jeffry/ MARGARETH GAVIN ADVANCED CONVENTIONAL MACHINIST Signed: 03/18/2024 13:14 MARGARETH GAVIN [facility]
--- OUTSIDE RECORDS SUMMARY | 2024-06-02 00:48 | XMS_ITS | Encounter Summary ---
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 Address [address] [place] [address] Care Team Providers Care Counselor [employer] Name Role Phone DONTRELL EPSTEINSON Primary Care Provider Unavailabl e Insurance Providers: [...] OF [place] [facility] (WNR) MEDICARE [facility] ([facility]) Sep 29, 2019 [id number] [phone] ONI DURAN MON PATIENT [place] [facility] ([place]NR) MEDICARE ([place]) [facility] ([facility]) Sep 29, 2008 [id number] [phone] ONI DURAN MON PATIENT [facility] [facility] ([place]) MEDICARE ADVANTAGE [facility] ([facility]) Sep 29, 2008 [id number] ONI DURAN MON PATIENT [facility] (WNR) MEDICARE [facility] ([facility]) Sep 29, 2019 [id number] ONI DURAN PATIENT [facility] [place] [facility] (WNR) MEDICARE ADVANTAGE [facility] (WNR) Sep 29, 2010 [id number] ONI DURAN PATIENT Selected Encounter This section includes the information on record at NH for the Encounter. Date/Time Encounter Type Encounter Description Reason Pro vider Source Apr 21, 2024 01:53 PM Outpatient Encounter CARDIOLOGY IHE Encounter Template Text not used by [place] Plan of Treatment: Future Appointments (+ 6 months) and Future Tests (+/- 45 days) The Plan of Treatment section includes future care activities for the [facility] This section includes future appointments and future orders which are active, pending or scheduled. Future Appointments This section includes appointments that were scheduled to occur 6 months from the date of the Encounter, up to a maximum of 20 appointments. The data comes from all [facility]. Appointment Date/Time Appointment Type Appointme nt Facility Name Apr 28, 2024 02:30 PM [facility] May 11, 2024 12:42 PM AMBULATORY - MEDICINE [facility] May 11, 2024 05:00 PM [facility] May 14, 2024 04:50 PM [facility] Sep 08, 2024 01:15 PM [facility] Sep 08, 2024 01:30 PM AMBULATORY - MEDICINE [facility] Sep 08, 2024 02:30 PM AMBULATORY - MEDICINE [facility] Active, Pending, and Scheduled Orders This section includes a listing of several types of active, pending, and scheduled orders, including clinic medications orders, diagnostic test orders, procedure orders and consult orders; where the start date of the order is 45 days before the date of the Encounter or 45 days after the date of theEncounter. The data comes from all [facility]. Test Date/Time Test Type Test Details Facility Name Apr 05, 2024 12:00 AM Laboratory - Chemistry Order AST/SGOT PLASMA SP [facility] Apr 05, 2024 12:00 AM Laboratory - Chemistry Order CBC BLOOD SP [facility] Apr 05, 2024 12:00 AM Laboratory - Chemistry Order BASIC METABOLIC PANEL+MG PLASMA SP [facility] Apr 05, 2024 12:00 AM Laboratory - Chemistry Order ALT/SGPT PLASMA SP [facility] May 11, 2024 04:49 PM Laboratory - Microbiology Order CULTURE & SUSCEPTIBILITY URINE WC [facility] May 13, 2024 12:00 AM Laboratory - Chemistry Order ALBUMIN/CREATININE RATIO URINE URINE WC [facility]CE [facility] May 13, 2024 12:00 AM Laboratory - Chemistry Order BASIC METABOLIC PANEL+MG PLASMA SP [facility] May 13, 2024 12:00 AM Laboratory - Chemistry Order LIPID PANEL,NON-FASTING PLASMA SP [facility] Lab Results: +/- 30 days of [...] Result - Unit Interpretation Reference Range Comment May 11, 2024 02:05 PM [facility] URINALYSIS Specimen Type: URINE No comment entered. Ordering Provider: KELLIE GONZALEZ Report Released Date/Time: May 11, 2024 12:58 PM Reporting Lab: [facility] [id number] Performing Lab: [facility] [id number] URINE COLOR COLORLESS SPECIFIC GRAVITY 1.010 1.003-1.035 URINE BILIRUBIN NEGATIVE NEGATIVE URINE KETONES NEGATIVE NEGATIVE URINE GLUCOSE >1000 mg/dL See_Comment URINE PROTEIN 30 mg/dL See_Comment URINE PH 5.5 5.0-8.0 URINE WBC/HPF 11 /[HPF] H 0-7 URINE BACTERIA FEW URINE YEAST MODERATE URINE RBC/HPF 8 /[HPF] H 0-3 APPEARANCE CLEAR SQUAMOUS EPITHELIAL 1 /[HPF] URINE BLOOD TRACE NEGATIVE URINE NITRITE NEGATIVE NEGATIVE LEUKOCYTE ESTERASE 250 NEGATIVE May 11, 2024 01:00 PM [facility] EXTRA PURPLE TUBE Specimen Type: BLOOD No comment entered. Ordering Provider: KELLIE GONZALEZ Report Released Date/Time: May 11, 2024 01:11 PM Reporting Lab: [facility] [phone] Performing Lab: [facility] [id number] EXTRA PURPLE TUBE RECEIVED May 11, 2024 01:00 PM [facility] EXTRA BLUE TUBE Specimen Type: PLASMA No comment entered. Ordering Provider: KELLIE GONZALEZ Report Released Date/Time: May 11, 2024 01:11 PM Reporting Lab: [facility] [id number] Performing Lab: [facility] [id number] EXTRA BLUE TUBE RECEIVED May 11, 2024 01:00 PM [facility] EXTRA GOLD GEL TUBE Specimen Type: SERUM No comment entered. Ordering Provider: KELLIE GONZALEZ Report Released Date/Time: May 11, 2024 01:11 PM Reporting Lab: [facility] [id number] Performing Lab: [facility] [phone] EXTRA GOLD GEL TUBE RECEIVED May 11, 2024 01:00 PM [facility] PHOSPHORUS Specimen Type: PLASMA No comment entered. Ordering Provider: KELLIE GONZALEZ Report Released Date/Time: May 11, 2024 12:58 PM Reporting Lab: [facility] [id number] Performing Lab: [facility] [id number] PHOSPHORUS 3.6 mg/dL 2.3-4.3 May 11, 2024 01:00 PM [facility] BASIC METABOLIC PANEL+MG Specimen Type: PLASMA No comment entered. Ordering Provider: KELLIE GONZALEZ Report Released Date/Time: May 11, 2024 12:58 PM Reporting Lab: [facility] [phone] Performing Lab: [facility] [id number] CREATININE 1.3 mg/dL H 0.7-1.2 UREA NITROGEN 25 mg/dL 8-26 GLUCOSE 171 mg/dL H 70-100 SODIUM 141 mmol/L 136-145 POTASSIUM 4.4 mmol/L 3.5-5.1 CHLORIDE 107 mmol/L 98-107 CO2 26 mmol/L 22-29 CALCIUM 9.0 mg/dL 8.4-10.2 MAGNESIUM 1.9 mg/dL 1.6-2.6 ANION GAP 8 mmol/L 5-15 .CREAT EGFR(CKD-EPI ) 56 L >60 Social History: Smoking Status (Most current) and [...] 10, 2023 03:30 PM VA-TOBACCO FORMER USER [facility] Tobacco Use History This section includes a history of the smoking, or tobacco-related health factors, that were collected on or before the date of the Encounter. The data comes from the [place] facility where the Encounter took place. Date/Time Smoking Status/Tobacco Use Comment F acility Sep 10, 2023 03:30 PM VA-TOBACCO QUIT 15 YRS OR MORE [facility] Jun 13, 2020 10:00 AM VA-TOBACCO FORMER USER [facility] Jun 13, 2020 10:00 AM VA-TOBACCO QUIT 15 YRS OR MORE [facility] May 20, 2019 12:18 PM VA-TOBACCO FORMER USER [facility] May 20, 2019 12:18 PM VA-TOBACCO QUIT 15 YRS OR MORE [facility] Jul 30, 2018 08:31 AM VA-TOBACCO FORMER USER [facility] Jul 30, 2018 08:31 AM VA-TOBACCO QUIT 15 YRS OR MORE [facility] Aug 25, 2017 08:04 AM FORMER TOBACCO USER 7Y OR GREATE R [facility] Nov 08, 2016 08:12 AM FORMER TOBACCO USER 7Y OR GREATE R [facility] Nov 29, 2015 12:46 PM FORMER TOBACCO USER 7Y OR GREATE R [facility] February 23, 2015 12:57 PM FORMER TOBACCO USER 7Y OR GREATE R [facility] January 27, 2014 10:10 AM FORMER TOBACCO USER 7Y OR GREATE R [facility] Mar 17, 2007 09:11 AM FORMER TOBACCO USER 7Y OR GREATE R [facility] Advance Directives: All historical and [...] comes from all [facility]. Date Advance Directives Provider Source Mar 17, 2007 ADVANCE DIRECTIVE ALBERTO RODRIGUEZ [facility] Encounter Notes: All associated encounter notes This section contains the clinical notes associated to the Encounter. Date/Time Encounter Note(s) Provider Source Apr 21, 2024 01:53 PM REPORT OF CONTACT: LOCAL TITLE: APPOINTMENT SCHEDULING NOTE STANDARD TITLE: REPORT OF CONTACT DATE OF NOTE: APR 21, 2024@13:53 ENTRY DATE: APR 21, 2024@13:53:46 AUTHOR: BRYAN WALKER EXP COSIGNER: URGENCY: STATUS: COMPLETED Attempted to schedule Cancellation Patient cancellation Contact attempt made to [facility] 1st attempt Telephone Left message on voice mail to call back to this number [phone] 2nd attempt Letter - Sent letter by regular [place] mail to address on file: [place] [address] [facility] [address] [place] [address] If [facility] calls back, schedule appt for: Activity: 11/04/2023 10:29 New Order entered by TONY PELAYO (PHYSICIAN) Order Text: Return to [facility] CARDIAC GITA NICHOLS 77 on or around ( Apr 05, 2024 ) for a total of 1 appointment(s) Prerequisites: Labs (NON-FASTING), EKG /jeffry/ BRYAN WALKER LEAD MSA Signed: 04/21/2024 13:54 Receipt Acknowledged By: 04/23/2024 11:07 /jeffry/ TONY PELAYO STAFF PHYSICIAN BRYAN WALKER [facility]
--- OUTSIDE RECORDS SUMMARY | 2024-06-02 00:48 | XMS_ITS | Encounter Summary ---
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 ([place]) Organization [facility] ([place]) Address [address] [place] [address] Care Team Providers Care Bilingual Counter Sales Retail Name Role Phone CED EPSTEIN [facility]) Sep 29, 2019 [id number] ONI COSTA MON PATIENT [facility] [place] [facility] ([place]NR) MEDICARE (M) [facility] (R) Sep 29, 2008 [id number] ONI COSTA MON PATIENT [facility] [place] [facility] ([place]NR) MEDICARE ADVANTAGE [facility] (WNR) Sep 29, 2008 [id number] ONI COSTA MON PATIENT [facility] (WNR) MEDICARE ADVANTAGE [facility] ([facility]) Sep 29, 2019 [id number] ONI COSTA PATIENT [facility] (WNR) MEDICARE ADVANTAGE [facility] (WNR) Sep 29, 2010 [id number] ONI COSTA PATIENT Selected Encounter This section includes the information on record at [place] for the Encounter. Date/Time Encounter Type Encounter Description Reason Provider Source Apr 19, 2024 11:15 PM Outpatient Encounter ADMIN PAT ACTIVTIES (MASNONCT) OLGA LIDIA BLEVINS IHFidencio Encounter Template Text not used by DC Plan of Treatment: Future Appointments (+ 6 months) and Future Tests (+/- 45 days) The Plan of Treatment section includes future care activities for the [facility] This section includes future appointments and future orders which are active, pending or scheduled. Future Appointments This section includes appointments that were scheduled to occur 6 months from the date of the Encounter, up to a maximum of 20 appointments. The data comes from all [facility]. Appointment Date/Time Appointment Type Appointme nt Facility Name Apr 28, 2024 02:30 PM AMBULATORY - MEDICINE [facility] May 11, 2024 12:42 PM AMBULATORY - MEDICINE [facility] May 11, 2024 05:00 PM AMBULATORY - NONE [facility] May 14, 2024 04:50 PM AMBULATORY - NONE [facility] Sep 08, 2024 01:15 PM AMBULATORY - MEDICINE [facility] Sep 08, 2024 01:30 PM AMBULATORY - MEDICINE [facility] Sep 08, 2024 02:30 PM AMBULATORY - MEDICINE [facility] Active, Pending, and Scheduled Orders This section includes a listing of several types of active, pending, and scheduled orders, including clinic medications orders, diagnostic test orders, procedure orders and consult orders; where the start date of the order is 45 days before the date of the Encounter or 45 days after the date of theEncounter. The data comes from all [facility]. Test Date/Time Test Type Test Details Facility Name Apr 05, 2024 12:00 AM Laboratory - Chemistry Order AST/SGOT PLASMA [facility] Apr 05, 2024 12:00 AM Laboratory - Chemistry Order ALT/SGPT PLASMA [facility] Apr 05, 2024 12:00 AM Laboratory - Chemistry Order BASIC METABOLIC PANEL+MG PLASMA SP [facility] Apr 05, 2024 12:00 AM Laboratory - Chemistry Order CBC BLOOD SP ONCE [facility] May 11, 2024 04:49 PM Laboratory - Microbiology Order CULTURE & SUSCEPTIBILITY URINE WC ONCE [facility] May 13, 2024 12:00 AM Laboratory - Chemistry Order LIPID PANEL,NON-FASTING PLASMA SP ONCE [facility] May 13, 2024 12:00 AM Laboratory - Chemistry Order BASIC METABOLIC PANEL+MG PLASMA SP ONCE [facility] May 13, 2024 12:00 AM Laboratory - Chemistry Order ALBUMIN/CREATININE RATIO URINE URINE WC ONCE [facility] Lab Results: +/- 30 days [...] Range Comment May 11, 2024 02:05 PM [facility] URINALYSIS Specimen Type: URINE No comment entered. Ordering Provider: KELLIE GONZALEZ Report Released Date/Time: May 11, 2024 12:58 PM Reporting Lab: [facility] [id number] Performing Lab: [facility] [id number] URINE COLOR COLORLESS SPECIFIC GRAVITY 1.010 1.003-1.035 [...] 250 NEGATIVE May 11, 2024 01:00 PM [facility] EXTRA PURPLE TUBE Specimen Type: BLOOD No comment entered. Ordering Provider: KELLIE GONZALEZ Report Released Date/Time: May 11, 2024 01:11 PM Reporting Lab: [facility] [phone] Performing Lab: [facility] [phone] EXTRA PURPLE TUBE RECEIVED May 11, 2024 01:00 PM [facility] EXTRA BLUE TUBE Specimen Type: PLASMA No comment entered. Ordering Provider: KELLIE GONZALEZ Report Released Date/Time: May 11, 2024 01:11 PM Reporting Lab: [facility] [id number] Performing Lab: [facility] [id number] EXTRA BLUE TUBE RECEIVED May 11, 2024 01:00 PM [facility] EXTRA GOLD GEL TUBE Specimen Type: SERUM No comment entered. Ordering Provider: KELLIE GONZALEZ Report Released Date/Time: May 11, 2024 01:11 PM Reporting Lab: [facility] [phone] Performing Lab: [facility] [phone] EXTRA GOLD GEL TUBE RECEIVED May 11, 2024 01:00 PM [facility] PHOSPHORUS Specimen Type: PLASMA No comment entered. Ordering Provider: KELLIE GONZALEZ Report Released Date/Time: May 11, 2024 12:58 PM Reporting Lab: [facility] [phone] Performing Lab: [facility] [phone] PHOSPHORUS 3.6 mg/dL 2.3-4.3 May 11, 2024 01:00 PM [facility] BASIC METABOLIC PANEL+MG Specimen Type: PLASMA No comment entered. Ordering Provider: KELLIE GONZALEZ Report Released Date/Time: May 11, 2024 12:58 PM Reporting Lab: [facility] [id number] Performing Lab: [facility] [phone] CREATININE 1.3 mg/dL H 0.7-1.2 UREA NITROGEN [...] 10, 2023 03:30 PM VA-TOBACCO FORMER USER [facility] Tobacco Use History This section includes a history of the smoking, or tobacco-related health factors, that were collected on or before the date of the Encounter. The data comes from the [place] facility where the Encounter took place. Date/Time Smoking Status/Tobacco Use Comment F acility Sep 10, 2023 03:30 PM VA-TOBACCO QUIT 15 YRS OR MORE [facility] Jun 13, 2020 10:00 AM VA-TOBACCO FORMER USER [facility] Jun 13, 2020 10:00 AM VA-TOBACCO QUIT 15 YRS OR MORE [facility] May 20, 2019 12:18 PM VA-TOBACCO FORMER USER [facility] May 20, 2019 12:18 PM VA-TOBACCO QUIT 15 YRS OR MORE [facility] Jul 30, 2018 08:31 AM VA-TOBACCO FORMER USER [facility] Jul 30, 2018 08:31 AM VA-TOBACCO QUIT 15 YRS OR MORE [facility] Aug 25, 2017 08:04 AM FORMER TOBACCO USER 7Y OR GREATE R [facility] Nov 08, 2016 08:12 AM FORMER TOBACCO USER 7Y OR GREATE R [facility] Nov 29, 2015 12:46 PM FORMER TOBACCO USER 7Y OR GREATE R [facility] February 23, 2015 12:57 PM FORMER TOBACCO USER 7Y OR GREATE R [facility] January 27, 2014 10:10 AM FORMER TOBACCO USER 7Y OR GREATE R [facility] Mar 17, 2007 09:11 AM FORMER TOBACCO USER 7Y OR GREATE R [facility] Advance Directives: All historical and [...] Mar 17, 2007 ADVANCE DIRECTIVE ALBERTO RODRIGUEZ [facility] Encounter Notes: All associated encounter notes This section contains the clinical notes associated to the Encounter. Date/Time Encounter Note(s) Provider Source Apr 20, 2024 10:31 AM ADDENDUM: LOCAL TITLE: Addendum STANDARD TITLE: ADDENDUM DATE OF NOTE: APR 20, 2024@10:31:58 ENTRY DATE: APR 20, 2024@10:31:59 AUTHOR: ALEN BECK EXP COSIGNER: URGENCY: STATUS: COMPLETED [facility] was seen in a [facility] ED. Records uploaded to chart. Please review and follow up as appropriate. /jeffry/ ALEN BECK ...Advanced Water Project Engineer Signed: 04/20/2024 10:32 Receipt Acknowledged By: 04/20/2024 12:55 /es/ Ced Epstein D.O. Staff Physician 04/21/2024 14:14 /es/ JACQUI DE LA GARZA RN REGISTERED NURSE --- Original Document --- 04/19/24 COUNT INCLUDES THE [facility] PRESENTING CARE COORD PLAN NOTE: Emergency Notification Intake Date Presenting to the Facility: Mar Method of Contact: Notified from MobileTag worklist Notification ID: [id number] [facility] Referral #: [facility] Hospital Name: Hospital: [facility] Address: City: [place] State: [place] Zip Code: Phone : Community Facility Point of Contact: Name: Phone: Chief complaint: DIZZINESS, BALANCE ISSUES, HIGH BLOOD PRESSURE, PRESSURE ON RIGHT EYE Primary Diagnosis: Disposition Unknown at time of intake note entry In Network Provider?: Yes Callback Attempts: 0 Contractor Name: [facility] [employer] Wireman: [employer] Affiliation Code: [facility] Affiliation Description: [facility] Created By: @[email or web address] Last Modified: 04/19/2024 10:02 PM CDT Comments: 04/19/2024 10:01:58 PM CDT MARQUIS ARREGUIN NO POC INFORMATION ? OUTSIDE ALLOWED TIME TO CALL. ALL INFORMATION UPDATED TO MATCH WITH [facility]. /jeffry/ MICHI FONTAINE Senior Linux Engineer (AOD) Signed: 04/19/2024 23:09 Receipt Acknowledged By: 04/20/2024 09:46 /es/ Olga Lidia Blevins RN CAYDEN MSN lead business analyst Insurance Loss Assessor 04/20/2024 ADDENDUM STATUS: COMPLETED Please offer pt f2f or phone appt for ED follow up. Thanks Outside ED note reviewed. Presented with right eye pain/blurriness with accompanying elevated BP while doing physical therapy. EMS was called and symptoms resolved by the time he got to ED. Workup was negative, including CT head. Most relevant parts of ED note copy/pasted below. KEVIN Costa is a 78 y.o. 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 Patient presents to ED complaining of intense right eye pain that started today while sitting in his wheelchair during physical therapy. The pain persisted for ~30 minutes and was accompanied by double vision. The pain began subsiding after being put into an ambulance by EMS. His reports that she was told his blood pressure was very high at the time of the incident. The patient reports that he is not currently in pain at the ED. He denies a history of similar eye pain. 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 [...] CT HEAD BRAIN WO Result Date: 04/19/[address] evidence of acute intracranial abnormality, or significant interval change relative to 09/21/2023. 2. Similar generalized cerebral volume loss, chronic microangiopathic changes, and small old infarcts. [...] 78yoM with history of prior stroke (resulting right hemiparesis & right homonymous hemianopia, bed-bound), paroxysmal a-fib (takes Eliquis), T2DM (takes insulin), diabetic retinopathy & neuropathy, HTN, HLD, bladder cancer, COPD, CHF, DNR code status presenting per [facility] & blurred/double vision. States onset while doing physical therapy today with blurred/double vision from painful right eye. No fall or trauma. No headache. No new numbness, tingling, focal weakness. Resolved spontaneously before EMS arrived; states he feels fine here now and wants to go home. Mild HTN on presentation with otherwise normal vitals. Exam overall baseline with baseline right hemiparesis, unremarkable eye exam with no suggestion of infectious process, glaucoma, temporal arteritis, meningitis; clear lungs, normal work of breathing, benign abdomen, clear mentation. Acting baseline per . CT obtained given vision change with Eliquis use; unremarkable with no ICH. Screening EKG, blood tests unremarkable as well. Patient still asymptomatic on recheck; no ongoing eye pain or vision changes. Wants to discharge back home. Doubt ongoing emergent life-threatening etiology or benefit to hospitalization at this time. Return precautions and need for PCP follow up discussed and understood; no further questions at the time of discharge. 1027 I met with the patient to gather history and to perform my initial exam. We discussed plans for the ED course, including diagnostic testing and treatment. 11:22 AM Updated patient. I discussed the plan for discharge with the patient, and patient is agreeable. We discussed supportive cares at home and reasons for return to the ER including new or worsening symptoms - all questions and concerns addressed. /jeffry/ Ced Epstein D.O. Staff Physician Signed: 04/20/2024 12:59 ALEN BECK [facility] Apr 19, 2024 11:07 PM NONVA NOTE: LOCAL TITLE: COMMUNITY CARE-NAYA SELF PRESENTING CARE COORD PLAN STANDARD TITLE: NONVA NOTE DATE OF NOTE: APR 19, 2024@23:07 ENTRY DATE: APR 19, 2024@23:07:12 AUTHOR: MICHI FONTAINE EXP COSIGNER: URGENCY: STATUS: COMPLETED COMMUNITY CARE-NA[facility] SELF PRESENTING CARE COORD PLAN NOTE Has ADDENDA Emergency Notification Intake Date Presenting to the Facility: Mar Method of Contact: Notified from MobileTag worklist Notification ID: [id number] [facility] Referral #: [facility] Name: Hospital: [facility] Address: City: [place] State: [place] Zip Code: Phone : Community Facility Point of Contact: Name: Phone: Chief complaint: DIZZINESS, BALANCE ISSUES, HIGH BLOOD PRESSURE, PRESSURE ON RIGHT EYE Primary Diagnosis: Disposition Unknown at time of intake note entry In Network Provider?: Yes Callback Attempts: 0 Contractor Name: [facility] [employer] Wireman: [employer] Affiliation Code: CCN2 Affiliation Description: [facility] Created By: @[email or web address] Last Modified: 04/19/2024 10:02 PM CDT Comments: 04/19/2024 10:01:58 PM CDT MARQUIS ARREGUIN NO POC INFORMATION ? OUTSIDE ALLOWED TIME TO CALL. ALL INFORMATION UPDATED TO MATCH WITH [facility]. /es/ MICHI FONTAINE Senior Linux Engineer (AOD) Signed: 04/19/2024 23:09 Receipt Acknowledged By: 04/20/2024 09:46 /es/ Olga Lidia Blevins RN CAY[employer] MSN lead business analyst Insurance Loss Assessor 04/20/2024 ADDENDUM STATUS: COMPLETED [facility]cher was seen in a [facility] ED. Records uploaded to chart. Please review and follow up as appropriate. /es/ ALEN BECK .Mauro.Advanced Water Project Engineer Signed: 04/20/2024 10:32 Receipt Acknowledged By: 04/20/2024 12:55 /es/ Ced Epstein D.O. Staff Physician * AWAITING SIGNATURE * JACQUI DE LA GARZA 04/20/2024 ADDENDUM STATUS: COMPLETED Please offer pt f2f or phone appt for ED follow up. Thanks Outside ED note reviewed. Presented with right eye pain/blurriness with accompanying elevated BP while doing physical therapy. EMS was called and symptoms resolved by the time he got to ED. Workup was negative, including CT head. Most relevant parts of ED note copy/pasted below. KEVIN Costa is a 78 y.o. 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 Patient presents to ED complaining of intense right eye pain that started today while sitting in his wheelchair during physical therapy. The pain persisted for ~30 minutes and was accompanied by double vision. The pain began subsiding after being put into an ambulance by EMS. His reports that she was told his blood pressure was very high at the time of the incident. The patient reports that he is not currently in pain at the ED. He denies a history of similar eye pain. 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 [...] CT HEAD BRAIN WO Result Date: 04/19/[address] evidence of acute intracranial abnormality, or significant interval change relative to 09/21/2023. 2. Similar generalized cerebral volume loss, chronic microangiopathic changes, and small old infarcts. [...] 78yoM with history of prior stroke (resulting right hemiparesis & right homonymous hemianopia, bed-bound), paroxysmal a-fib (takes Eliquis), T2DM (takes insulin), diabetic retinopathy & neuropathy, HTN, HLD, bladder cancer, COPD, CHF, DNR code status presenting [facility] & blurred/double vision. States onset while doing physical therapy today with blurred/double vision from painful right eye. No fall or trauma. No headache. No new numbness, tingling, focal weakness. Resolved spontaneously before EMS arrived; states he feels fine here now and wants to go home. Mild HTN on presentation with otherwise normal vitals. Exam overall baseline with baseline right hemiparesis, unremarkable eye exam with no suggestion of infectious process, glaucoma, temporal arteritis, meningitis; clear lungs, normal work of breathing, benign abdomen, clear mentation. Acting baseline per . CT obtained given vision change with Eliquis use; unremarkable with no ICH. Screening EKG, blood tests unremarkable as well. Patient still asymptomatic on recheck; no ongoing eye pain or vision changes. Wants to discharge back home. Doubt ongoing emergent life-threatening etiology or benefit to hospitalization at this time. Return precautions and need for PCP follow up discussed and understood; no further questions at the time of discharge. 1027 I met with the patient to gather history and to perform my initial exam. We discussed plans for the ED course, including diagnostic testing and treatment. 11:22 AM Updated patient. I discussed the plan for discharge with the patient, and patient is agreeable. We discussed supportive cares at home and reasons for return to the ER including new or worsening symptoms - all questions and concerns addressed. /jeffry/ Ced Epstein D.O. Staff Physician Signed: 04/20/2024 12:59 MICHI FONTAINE [facility]
--- OUTSIDE RECORDS SUMMARY | 2024-06-02 00:48 | XMS_ITS | Encounter Summary ---
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 ([place]) Organization [facility] Address [address] [place] [address] Care Team Providers Care Solar[employer] Sales Name Role Phone LUCIANCED Primary Care Provider [...] Relationship to Policy Mar [facility] [place] [facility] (WNR) MEDICARE [facility] ([facility]) Sep 29, 2019 [id number] [phone] ONI DURAN MON PATIENT [facility] [place] [facility] (WNR) MEDICARE ([place]) [facility] ([facility]) Sep 29, 2008 [id number] RENEE,SI MON PATIENT [facility] [place] [facility] (WNR) MEDICARE [facility] (R) Sep 29, 2008 [id number] RENEE,SI MON PATIENT [facility] (WNR) MEDICARE [facility] ([facility]) Sep 29, 2019 [id number] ONI DURAN PATIENT [facility] [place] [facility] (WNR) MEDICARE ADVANTAGE [facility] (WNR) Sep 29, 2010 [id number] ONI DURAN PATIENT Selected Encounter This section includes the information on record at OR for the Encounter. Date/Time Encounter Type Encounter Description Reason Pro vider Source Apr 07, 2024 10:12 AM Outpatient Encounter PRIMARY CARE/MEDICINE IHE Encounter Template Text not used by OR Plan of Treatment: Future Appointments (+ 6 months) and Future Tests (+/- 45 days) The Plan of Treatment section includes future care activities for the [facility] This section includes future appointments and future orders which are active, pending or scheduled. Future Appointments This section includes appointments that were scheduled to occur 6 months from the date of the Encounter, up to a maximum of 20 appointments. The data comes from all [facility]. Appointment Date/Time Appointment Type Appointme nt Facility Name Apr 19, 2024 11:15 PM [facility] Apr 28, 2024 02[facility]30 PM [facility] May 11, 2024 12:42 PM AMBULATORY - MEDICINE [facility] May 11, 2024 05:00 PM AMBULATORY - NONE [facility] May 14, 2024 04:50 PM AMBULATORY - NONE [facility] Sep 08, 2024 01:15 PM AMBULATORY - MEDICINE [facility] Sep 08, 2024 01:30 PM AMBULATORY - MEDICINE [facility] Sep 08, 2024 02:30 PM AMBULATORY - MEDICINE [facility] Active, Pending, and Scheduled Orders This section includes a listing of several types of active, pending, and scheduled orders, including clinic medications orders, diagnostic test orders, procedure orders and consult orders; where the start date of the order is 45 days before the date of the Encounter or 45 days after the date of theEncounter. The data comes from all [facility]. Test Date/Time Test Type Test Details Facility Name Apr 05, 2024 12:00 AM Laboratory - Chemistry Order AST/SGOT PLASMA [facility] Apr 05, 2024 12:00 AM Laboratory - Chemistry Order ALT/SGPT PLASMA [facility] Apr 05, 2024 12:00 AM Laboratory - Chemistry Order CBC BLOOD SP ONCE [facility] Apr 05, 2024 12:00 AM Laboratory - Chemistry Order BASIC METABOLIC PANEL+MG PLASMA SP [facility] May 11, 2024 04:49 PM Laboratory - Microbiology Order CULTURE & SUSCEPTIBILITY URINE WC ONCE [facility] May 13, 2024 12:00 AM Laboratory - Chemistry Order LIPID PANEL,NON-FASTING PLASMA SP ONCE [facility] May 13, 2024 12:00 AM Laboratory - Chemistry Order BASIC METABOLIC PANEL+MG PLASMA SP ONCE [facility] May 13, 2024 12:00 AM Laboratory - Chemistry Order ALBUMIN/CREATININE RATIO URINE URINE WC ONCE [facility] Social History: Smoking Status [...] 09:11 AM FORMER TOBACCO USER 7Y OR [facility] Advance Directives: All [...] Mar 17, 2007 ADVANCE DIRECTIVE ROWENAALBERTO SHEARER [facility] Pathology Reports: +/- 30 [...] the Encounter. The data comes from all OR treatment facilities. Date/Time Pathology Report Provider Source Mar 08, 2024 03:56 PM LR SURGICAL PATHOL OGY REPORT: LOCAL TITLE: LR SURGICAL PATHOLOGY REPORT STANDARD TITLE: PATHOLOGY REPORT DATE OF NOTE: MAR 08, 2024@15:56:47 ENTRY DATE: MAR 08, 2024@15:56:47 AUTHOR: FELIPE CABRERA EXP COSIGNER: URGENCY: STATUS: COMPLETED $APHDR Reporting Lab: [facility] [CLIA# [id number]] [place] [address] - - - - - - - [...] CE. (D)SMcCoy MICROSCOPIC DESCRIPTION: Microscopic examination performed. [facility]. Diagnosis: Skin, Right preauricular cheek shave, biopsy-- - Sebaceous adenoma. /jeffry/ FELIPE CABRERA STAFF PATHOLOGIST Signed Mar 08, 2024@15:56 Performing Laboratory: Surgical Pathology Report Performed By: [facility] [CLIA# [id number]] [employer] [address] $FTR - - - - - - - - - - - - - - - - - - - - - - - - - - - - - - - - - - - - - - - - (End of report) FELIPE CABRERA MD [facility] Date Mar 05, 2024 - - - - - - - - - - - - - - - - - - - - - - - - - - - - - - - - - - - - - - - - BETH DURAN STANDARD FORM 515 ID:[id number] SEX:M :[id number] AGE: 78 LOC:[id number] PCP: Ced Cline MD /jeffry/ FELIPE CABRERA STAFF PATHOLOGIST Signed: 03/08/2024 15:56 FELIPE CABRERA [facility] Encounter Notes: All associated encounter notes This section contains the clinical notes associated to the Encounter. Date/Time Encounter Note(s) Provider Source Apr 07, 2024 10:13 AM REPORT OF CONTACT: LOCAL TITLE: PATIENT CONTACT NOTE STANDARD TITLE: REPORT OF CONTACT DATE OF NOTE: APR 07, 2024@10:13 ENTRY DATE: APR 07, 2024@10:13:49 AUTHOR: JACQUI DE LA GARZA EXP COSIGNER: URGENCY: STATUS: COMPLETED Patient contact Name of [place]: BETH DURAN Name/Relationship of Contact if other than : Date & Time of Contact: Mar@10:14 Type of Contact: Telephone Reason for Contact: returned VM to Rosio Garcia RN at [facility], per request refilled request for poise pads to be mailed out. /jeffry/ JACQUI DE LA GARZA RN REGISTERED NURSE Signed: 04/07/2024 10:15 JACQUI DE LA GARZA [facility]
--- OUTSIDE RECORDS SUMMARY | 2024-06-02 00:48 | XMS_ITS | Encounter Summary ---
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 ([place]) [facility] Address [address] [place] [address] Care Team Providers Care Senior Care Assistant Name Role Phone CED EPSTEIN Primary [...] HEALTH (WNR) MEDICARE ADVANTAGE [facility] ([facility]) Sep 29, 2019 [id number] [phone] ONI DURAN MON PATIENT [facility] [place] [facility] (WNR) MEDICARE (M) [facility] ([place]) Sep 29, 2008 [id number] [phone] ONI DURAN MON PATIENT [facility] (WNR) MEDICARE ADVANTAGE [facility] (WNR) Sep 29, 2008 [id number] ONI DURAN MON PATIENT [facility] (WNR) MEDICARE ADVANTAGE [facility] ([facility]) Sep 29, 2019 [id number] ONI DURAN PATIENT [facility] MCR (WNR) MEDICARE ADVANTAGE MCR (WNR) Sep 29, 2010 [id number] ONI DURAN PATIENT Selected Encounter This section includes the information on record at [place] for the Encounter. Date/Time Encounter Type Encounter Description Reason Provider Source Apr 28, 2024 02:30 PM OFFICE O/P EST HI 40 MIN PRIMARY CARE/MEDICINE ICD-10-CM Z00.01 Encounter for general adult medical exam w abnormal findings CED EPSTEIN [facility] Encounter Template Text not used by [place] Assessments - Encounter Diagnoses This section includes the primary and secondary diagnoses documented for the Encounter. Date/Time Primary/Secondary Diagnosis Diagnosis Name Provider Source May 07, 2024 09:38 AM PRIMARY Encounter for general adult medical exam w abnormal findings [facility] May 07, 2024 09:38 AM SECONDARY Cerebral infarction, unspecified [facility] May 07, 2024 09:38 AM SECONDARY Chronic kidney disease, stage 3a [facility] May 07, 2024 09:38 AM SECONDARY Essential (primary) hypertension [facility] May 07, 2024 09:38 AM SECONDARY Heart failure, unspecified [facility] May 07, 2024 09:38 AM SECONDARY Hyperlipidemia, unspecified [facility] May 07, 2024 09:38 AM SECONDARY intermission coordinator (current) use of anticoagulants [facility] May 07, 2024 09:38 AM SECONDARY Major depressive disorder, single episode, unspecified [facility] May 07, 2024 09:38 AM SECONDARY Paroxysmal atrial fibrillation [facility] May 07, 2024 09:38 AM SECONDARY Type 2 diabetes mellitus with unspecified complications [facility] Plan of Treatment: Future Appointments (+ 6 months) and Future Tests (+/- 45 days) The Plan of Treatment section includes future care activities for the patient from all [place] treatmentfacilities. This section includes future appointments and future orders which are active, pending or scheduled. Future Appointments This section includes appointments that were scheduled to occur 6 months from the date of the Encounter, up to a maximum of 20 appointments. The data comes from all [facility]. Appointment Date/Time Appointment Type Appointme nt Facility Name May 11, 2024 12:42 PM AMBULATORY [facility]INE [facility] May 11, 2024 05:00 PM AMBULATORY - NONE [facility] May 14, 2024 04:50 PM [facility] Sep 08, 2024 01:15 PM AMBULATORY - MEDICINE [facility] Sep 08, 2024 01:30 PM AMBULATORY - MEDICINE [facility] Sep 08, 2024 02:30 PM AMBULATORY MEDICINE [facility] Active, Pending, and Scheduled Orders This section includes a listing of several types of active, pending, and scheduled orders, including clinic medications orders, diagnostic test orders, procedure orders and consult orders; where the start date of the order is 45 days before the date of the Encounter or 45 days after the date of theEncounter. The data comes from all [facility]. Test Date/Time Test Type Test Details Facility Name Apr 05, 2024 12:00 AM Laboratory - Chemistry Order ALT/SGPT PLASMA SP [facility] Apr 05, 2024 12:00 AM Laboratory - Chemistry Order AST/SGOT PLASMA SP [facility] Apr 05, 2024 12:00 AM Laboratory - Chemistry Order CBC BLOOD SP ONCE [facility] Apr 05, 2024 12:00 AM Laboratory - Chemistry Order BASIC METABOLIC PANEL+MG PLASMA SP [facility] May 11, 2024 04:49 [...] and Hematology Lab Results on record with [place] for the patient. Radiology Reports and Pathology [...] May 11, 2024 12:58 PM Reporting Lab: [facility] [id number] Performing Lab: [facility] [id number] URINE COLOR COLORLESS SPECIFIC GRAVITY 1.010 1.003-1.035 [...] May 11, 2024 01:11 PM Reporting Lab: [facility] [id number] Performing Lab: [facility] [id number] EXTRA PURPLE TUBE RECEIVED May 11, 2024 01:00 PM [facility] EXTRA BLUE TUBE Specimen Type: PLASMA No comment entered. Ordering Provider: KELLIE GONZALEZ Report Released Date/Time: May 11, 2024 01:11 PM Reporting Lab: [facility] [id number] Performing Lab: [facility] [id number] EXTRA BLUE TUBE RECEIVED May 11, 2024 01:00 PM [facility] EXTRA GOLD GEL TUBE Specimen Type: SERUM No comment entered. Ordering Provider: KELLIE GONZALEZ Report Released Date/Time: May 11, 2024 01:11 PM Reporting Lab: [facility] [phone] Performing Lab: [facility] [phone] EXTRA GOLD GEL TUBE RECEIVED May 11, 2024 01:00 PM [facility] PHOSPHORUS Specimen Type: PLASMA No comment entered. Ordering Provider: KELLIE GONZALEZ Report Released Date/Time: May 11, 2024 12:58 PM Reporting Lab: [facility] [id number] Performing Lab: [facility] [id number] PHOSPHORUS 3.6 mg/dL 2.3-4.3 May 11, 2024 01:00 PM [facility] BASIC METABOLIC PANEL+MG Specimen Type: PLASMA No comment entered. Ordering Provider: KELLIE GONZALEZ Report Released Date/Time: May 11, 2024 12:58 PM Reporting Lab: [facility] [id number] Performing Lab: [facility] [phone] CREATININE 1.3 mg/dL H 0.7-1.2 UREA NITROGEN 25 mg/dL 8-26 GLUCOSE 171 mg/dL H 70-100 SODIUM 141 mmol/L 136-145 POTASSIUM 4.4 mmol/L 3.5-5.1 CHLORIDE 107 mmol/L 98-107 CO2 26 mmol/L 22-29 CALCIUM 9.0 mg/dL 8.4-10.2 MAGNESIUM 1.9 mg/dL 1.6-2.6 ANION GAP 8 mmol/L 5-15 .CREAT EGFR(CKD-EPI ) 56 L >60 Vital Signs: All taken on the encounter date This section contains inpatient and outpatient Vital Signs collected on the date of the Encounter. Date/Time Temperature Pulse Blood Pressure Respiratory Rate SP02 Pain Height Weight Body Mass Index Source Apr 28, 2024 02:38 PM 168/88 [facility] Apr 28, 2024 02:32 PM 98.1 51 173/84 16 98 0 184.7 23 [facility] Social History: Smoking Status (Most current) and Tobacco Use (All prior to encounter date) This section includes the most current, and the historical, smoking and tobacco- related health factors from the [facility] where the Encounter took place. [...] Mar 17, 2007 ADVANCE DIRECTIVE ALBERTO RODRIGUEZ [facility] Encounter Notes: All associated encounter notes This section contains the clinical notes associated to the Encounter. Date/Time Encounter Note(s) Provider Source Apr 28, 2024 02:34 PM INTERNAL MEDICINE OUTPATIENT NOTE: LOCAL TITLE: MEDICINE CLINIC NURSING NOTE STANDARD TITLE: INTERNAL MEDICINE OUTPATIENT NOTE DATE OF NOTE: APR 28, 2024@14:34 ENTRY DATE: APR 28, 2024@14:34:41 AUTHOR: ALEIDA WEISS EXP COSIGNER: URGENCY: STATUS: COMPLETED TYPE OF VISIT: Appointment Check In Type of appointment: In-person appointment REASON FOR VISIT: Annual visit ALLERGIES: PENICILLIN (Mar 17, 2007) SULFA DRUGS (Mar 17, 2007) DOXYCYCLINE (Jul 11, 2010) LISINOPRIL (Jul 22, 2011) AMLODIPINE (Nov 19, 2017) VITAL SIGNS: Blood Pressure: 173/84 (04/28/2024 14:32) 168/88 Pulse: 51 (04/28/2024 14:32) Respiration: 16 (04/28/2024 14:32) Temperature: 98.1 F [36.7 C] (04/28/2024 14:32) Weight: 184.7 lb [83.78 kg] (04/28/2024 14:32) Height: Unavailable (04/28/2024 14:32) BMI: BMI not available without height O2 Sat: 98% (04/28/2024 14:32) Pain: 0 (04/28/2024 14:32) PAIN SCREEN: Patient is not having significant pain that they wish to discuss with their provider today. MEDICATION Active Outpatient Medications (including Supplies): ACCU-CHEK GUIDE (GLUCOSE) TEST STRIP USE 1 STRIP FOUR ACTIVE TIMES A DAY TO CHECK BLOOD SUGAR--USE WITHIN 3 MINUTES OF REMOVING FROM CONTAINER ACETAMINOPHEN 500MG TAB TAKE TWO TABLETS BY MOUTH THREE ACTIVE TIMES A DAY NEEDED FOR PAIN APIXABAN 5MG TAB TAKE ONE TABLET BY MOUTH EVERY 12 HOURS ACTIVE TO PREVENT STROKES ATORVASTATIN CALCIUM 80MG TAB TAKE ONE TABLET BY MOUTH AT ACTIVE BEDTIME FOR CHOLESTEROL BANDAGE TUBULAR ELASTIC NET SZ 5 X 25YD USE DRESSING ACTIVE RETAINER TOPICALLY DIRECTED FOR WOUND CARE (DRESSING SECUREMENT) BUPROPION HCL 150MG 24HR SA TAB TAKE ONE TABLET BY MOUTH ACTIVE EVERY DAY FOR DEPRESSION CHOLECALCIF 25MCG (D3-1,000UNIT) TAB TAKE ONE TABLET BY ACTIVE MOUTH EVERY DAY FOR VITAMIN D SUPPLEMENT CLEANSER,WOUND SKINTEGRITY TOP SPRAY SPRAY TO AFFECTED ACTIVE AREA TOPICALLY DIRECTED FOR WOUND CARE DEPEND UNDERWEAR,MAXIMUM,MEN LARGE USE 1 BRIEF THREE ACTIVE TIMES A DAY NEEDED FOR URINARY INCONTINENCE DRESS,HYDROGEL SPAND-GEL 0IMD5XV #[id number] APPLY 1 DRESSING ACTIVE TOPICALLY DIRECTED FOR WOUND CARE DRESS,MEPILEX BORDER FLEX 4X4IN #[id number] APPLY 1 DRESSING ACTIVE TOPICALLY EVERY DAY FOR LEFT UPPER THIGH WOUND EMPAGLIFLOZIN 25MG TAB TAKE ONE TABLET BY MOUTH EVERY DAY ACTIVE FOR DIABETES ESCITALOPRAM OXALATE 10MG TAB TAKE ONE TABLET BY MOUTH ACTIVE EVERY DAY FOR MOOD GAUZE PAD 4IN X 4IN 12-PLY STERILE USE GAUZE SPONGE GAUZE ACTIVE PAD 4IN X 4IN 12-PLY STERILE TOPICALLY DIRECTED FOR WOUND CARE INSULIN,ASPART(EQV-NOVLG)10 0UN/ML FLXPEN INJECT ACTIVE DIRECTED UNDER [...] TO ADMINISTRATION. MAX 36 UNITS PER DAY. INSULIN,GLARGINE-YFGN 100UNIT/ML PEN 3ML INJECT 25 UNITS ACTIVE UNDER THE SKIN AT BEDTIME FOR DIABETES KERLIX 4.5IN STERILE USE 1 BANDAGE TOPICALLY DIRECTED ACTIVE KETOCONAZOLE 2% SHAMPOO SHAMPOO SCALP TOPICALLY 3 TIMES ACTIVE WEEKLY *LATHER FOR 5 MINUTES THEN RINSE* LEVOTHYROXINE NA (SYNTHROID) 100MCG TAB TAKE ONE TABLET BY ACTIVE MOUTH EVERY DAY FOR THYROID LIDOCAINE 5% PATCH APPLY 1 PATCH TOPICALLY EVERY DAY ACTIVE NEEDED FOR UP TO 12 HOURS FOR PAIN REMOVE AFTER 12 HOURS. MAX 1 PATCH PER 24 HOURS. LOPERAMIDE HCL 2MG CAP TAKE ONE CAPSULE BY MOUTH EVERY 6 ACTIVE HOURS NEEDED FOR DIARRHEA DIRECTED: 2 CAPSULES (4MG) AFTER 1ST LOOSE STOOL, THEN 1 CAPSULE AFTER SUBSEQUENT LOOSE STOOL IF NEEDED. MAX 8 CAPS (16MG/DAY). LOSARTAN 25MG TAB TAKE ONE TABLET BY MOUTH EVERY DAY FOR ACTIVE BLOOD PRESSURE MECLIZINE HCL 25MG CHEW TAB CHEW ONE-HALF TABLET BY MOUTH ACTIVE EVERY DAY AND CHEW ONE-HALF TABLET EVERY DAY NEEDED FOR DIZZINESS MELATONIN 3MG CAP/TAB TAKE 2 TABLETS BY MOUTH AT BEDTIME ACTIVE FOR SLEEP NEEDLE,PEN 31G,8MM USE 1 NEEDLE UNDER THE SKIN DIRECTED ACTIVE *DISPOSE OF IN A HARD-PLASTIC CONTAINER WITH A SCREW-ON LID CONTACT GARBAGE HAULER FOR PROPER DISPOSAL OMEPRAZOLE 40MG EC CAP TAKE ONE CAPSULE BY MOUTH EVERY DAY ACTIVE FOR STOMACH ACID DOSE INCREASE ONDANSETRON 4MG ORAL DISINTEGRATING TAB DISSOLVE ONE ACTIVE TABLET BY UNDER THE TONGUE EVERY 6 HOURS NEEDED FOR NAUSEA AND VOMITING PAD,ABDOMINAL 7.5 X 8 STERILE USE PAD TOPICALLY HOLD DIRECTED POISE PAD,ULTIMATE ABSORB EXTRA COVERAGE USE PAD TOPICALLY ACTIVE THREE TIMES A DAY NEEDED FOR URINARY INCONTINENCE SEMAGLUTIDE 1MG/0.75ML INJ PEN 3ML INJECT 1MG UNDER THE ACTIVE SKIN EVERY WEEK FOR DIABETES SENNOSIDES 8.6MG TAB TAKE TWO TABLETS BY MOUTH EVERY DAY ACTIVE NEEDED FOR CONSTIPATION SODIUM FLUORIDE 1.1% TOOTHPASTE BRUSH TEETH WITH A SMALL ACTIVE AMOUNT MOUTH EVERY MORNING AND AT BEDTIME TO PREVENT DENTAL CAVITIES TAPE,MEDIPORE H SOFT 4IN X 10YD 3M#2864 CUT AND APPLY TAPE ACTIVE TOPICALLY DIRECTED TORSEMIDE 10MG TAB TAKE ONE TABLET BY MOUTH EVERY DAY FOR ACTIVE EXCESS FLUID ZINC OXIDE 20% OINT APPLY SMALL AMOUNT TOPICALLY THREE ACTIVE TIMES A DAY NEEDED FOR SKIN PROTECTION APPLY A THIN LAYER TO AFFECTED PERINEAL AREAS TOPICALLY 2-3 TIMES DAILY NEEDED. MAY DAB AND REAPPLY. DO NOT WIPE COMPLETELY OFF SKIN FOR EACH APPLICATION. Over the Counter/Herbal Medications: The patient denies taking any outside medications or herbals. COVID-19 Immunization: Refused Pfizer Monovalent COVID-19 vaccine Immunization: COVID-19 (PFIZER), MRNA, LNP-S, PF, CELESTINA-SUCROSE, 30 MCG/0.3 ML (AGES 12+ YEARS) Refusal Reason: PATIENT DECISION Patient refuses all immunization(s) in the COVID-19 group Date Documented: 04/28/24 14:35 Alcohol Use Screen (AUDIT-C): Alcohol Screen: SCREEN FOR ALCOHOL (AUDIT-C) An alcohol screening test (AUDIT-C) was negative (score=0). 1. How often did you have a drink containing alcohol in the past year? Consider a drink to be a 12 ounce can or bottle of regular beer, 8 ounces of malt liquor, a 5 ounce glass of table wine, or a 1.5 ounce shot of liquor (like scotch, gin, or vodka). Never 2. How many drinks containing alcohol did you have on a typical day when you were drinking in the past year? Response not required due to responses to other questions. 3. How often did you have six or more drinks on one occasion in the past year? Response not required due to responses to other questions. /jeffry/ ALEIDA WEISS LPN LICENSED PRACTICAL NURSE Signed: 04/28/2024 14:36 ALEIDA WEISS [facility] Apr 28, 2024 09:25 AM INTERNAL MEDICINE NOTE: LOCAL TITLE: MEDICINE CLINIC NOTE STANDARD TITLE: INTERNAL MEDICINE NOTE DATE OF NOTE: APR 28, 2024@09:25 ENTRY DATE: MAY 07, 2024@09:25:08 AUTHOR: CED EPSTEIN EXP COSIGNER: URGENCY: STATUS: COMPLETED Nurse's notes reviewed from today. BETH DURAN is a 78 year old MALE with the following Chief complaint: Annual checkup HPI/ROS: Pt is an 78 yo male with PMH of CVA (right sided hemiparesis), CAD, HTN, HL, Type II DM, CHF, Asthma, Depression, Hx bladder cancer (no further surveillance per outside Urology) who presents today for annual checkup. Pt overall doing ok. Living in assisted living. Gets around with electric wheelchair, doing PT at assisted living. Mood has been pretty good. No smoking > 35 years. No etoh consumption. UTD on Pneumonia, Tdap, Shingrix vaccines. BP elevated today. Asymptomatic, no chest pain, shortness of breath, or lightheadedness. Pt says home BP has been 125/60s. Pt had recent ED visit for double vision and right eye pain during a session of PT. CT head was negative. Resolved in ED and has not had any recurrences since. Pt has appt with outside eye doctor to f/u on this. Pt feels some skin tears in his buttock. No active bleeding or drainage. Active problems - Computerized Problem List is the source for the followin. Hypertension (SNOMED CT 12207835) 2. Hyperlipidemia (SNOMED CT 34736608) 3. Tinnitus * 4. 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 Asthma (SNOMED CT 672534851) 6. Diabetic retinopathy (SNOMED CT 1651631) 7. Type 2 diabetes mellitus (SNOMED CT 58023062) 8. Umbilical hernia (SNOMED CT 415483150) 9. Obstructive sleep apnea (SNOMED CT 73404507) 10. Obesity * - 10 TOPIC GRAD 07-09-2012* 244.0 --> 09-17-12* 243.2 lbs 11. Anemia 12. Rosacea 13. Carcinoma of bladder - Followed by outside Urology. 14. Depression (SCT 87688415) - prescribed by [place] for depression 15. Congestive heart failure 16. CVA - Cerebrovascular accident - 11/2020, outside hospital. - Right sided hemiparesis 17. Dysphagia as a late effect of cerebrovascular accident 18. Long-term current use of anticoagulant 19. Exposure to Agent [place] 20. Paroxysmal atrial fibrillation 21. Exposure to potentially hazardous substance ([facility] [id number]) - Entered automatically through [facility] Problem List documentation program Allergies: PENICILLIN (Mar 17, 2007) SULFA DRUGS (Mar 17, 2007) DOXYCYCLINE (Jul 11, 2010) LISINOPRIL (Jul 22, 2011) AMLODIPINE (Nov 19, 2017) Active and Recently Outpatient Medications (including Supplies): Active Outpatient Medications Status 1) ACCU-CHEK GUIDE (GLUCOSE) TEST STRIP USE 1 STRIP ACTIVE (S) FOUR TIMES A DAY TO CHECK BLOOD SUGAR--USE WITHIN 3 MINUTES OF REMOVING FROM CONTAINER 2) ACETAMINOPHEN 500MG TAB TAKE TWO TABLETS BY MOUTH ACTIVE THREE TIMES A DAY NEEDED FOR PAIN 3) APIXABAN 5MG TAB TAKE ONE TABLET BY MOUTH EVERY 12 ACTIVE HOURS TO PREVENT STROKES 4) ATORVASTATIN CALCIUM 80MG TAB TAKE ONE TABLET BY ACTIVE (S) MOUTH AT BEDTIME FOR CHOLESTEROL 5) BANDAGE TUBULAR ELASTIC NET SZ 5 X 25YD USE DRESSING ACTIVE RETAINER TOPICALLY DIRECTED FOR WOUND CARE (DRESSING SECUREMENT) 6) BUPROPION HCL 150MG 24HR SA TAB TAKE ONE TABLET BY ACTIVE (S) MOUTH EVERY DAY FOR DEPRESSION 7) CHOLECALCIF 25MCG (D3-1,000UNIT) TAB TAKE ONE TABLET ACTIVE BY MOUTH EVERY DAY FOR VITAMIN D SUPPLEMENT 8) CLEANSER,WOUND SKINTEGRITY TOP SPRAY SPRAY TO ACTIVE AFFECTED AREA TOPICALLY DIRECTED FOR WOUND CARE 9) DEPEND UNDERWEAR,MAXIMUM,MEN LARGE USE 1 BRIEF ACTIVE (S) THREE TIMES A DAY NEEDED FOR URINARY INCONTINENCE 10) DRESS,HYDROGEL SPAND-GEL 4PCM6NY #[id number] APPLY 1 ACTIVE DRESSING TOPICALLY DIRECTED FOR WOUND CARE 11) DRESS,MEPILEX BORDER FLEX 4X4IN #[id number] APPLY 1 ACTIVE DRESSING TOPICALLY EVERY DAY FOR LEFT UPPER THIGH WOUND 12) EMPAGLIFLOZIN 25MG TAB TAKE ONE TABLET BY MOUTH EVERY ACTIVE (S) DAY FOR DIABETES 13) ESCITALOPRAM OXALATE 10MG TAB TAKE ONE TABLET BY ACTIVE (S) MOUTH EVERY DAY FOR MOOD 14) GAUZE PAD 4IN X 4IN 12-PLY STERILE USE GAUZE SPONGE ACTIVE GAUZE PAD 4IN X 4IN 12-PLY STERILE TOPICALLY DIRECTED FOR WOUND CARE 15) INSULIN,ASPART(EQV-NOVLG)10 0UN/ML FLXPEN INJECT ACTIVE (S) DIRECTED UNDER THE SKIN THREE TIMES A [...] NA (SYNTHROID) 100MCG TAB TAKE ONE ACTIVE (S) TABLET BY MOUTH EVERY DAY FOR THYROID [...] BY MOUTH EVERY DAY ACTIVE (S) FOR BLOOD PRESSURE 23) MECLIZINE HCL 25MG [...] LID CONTACT GARBAGE HAULER FOR PROPER DISPOSAL 26) OMEPRAZOLE 40MG EC CAP TAKE ONE CAPSULE BY MOUTH ACTIVE EVERY DAY FOR STOMACH ACID DOSE INCREASE 27) ONDANSETRON 4MG ORAL DISINTEGRATING TAB DISSOLVE ONE ACTIVE TABLET BY UNDER THE TONGUE EVERY 6 HOURS NEEDED FOR NAUSEA AND VOMITING 28) PAD,ABDOMINAL 7.5 X 8 STERILE USE PAD TOPICALLY HOLD DIRECTED 29) POISE PAD,ULTIMATE ABSORB EXTRA COVERAGE USE PAD ACTIVE (S) TOPICALLY THREE TIMES A DAY NEEDED FOR [...] 33) TAPE,MEDIPORE H SOFT 4IN X 10YD 3M#2864 CUT AND APPLY ACTIVE TAPE TOPICALLY DIRECTED 34) TORSEMIDE 10MG TAB TAKE ONE TABLET BY MOUTH EVERY DAY ACTIVE (S) FOR EXCESS FLUID 35) ZINC OXIDE 20% OINT APPLY SMALL AMOUNT TOPICALLY ACTIVE THREE TIMES A DAY NEEDED FOR SKIN PROTECTION APPLY A THIN LAYER TO AFFECTED PERINEAL AREAS TOPICALLY 2-3 TIMES DAILY NEEDED. MAY DAB AND REAPPLY. DO NOT WIPE COMPLETELY OFF SKIN FOR EACH APPLICATION. EXAM: VS: Temp: 98.1 F [36.7 C] (04/28/2024 14:32) BP: 168/88 (04/28/2024 14:38) Pulse:51 (04/28/2024 14:32) Resp: 16 (04/28/2024 14:32) Pain: 0 (04/28/2024 14:32) Weight: WEIGHTS IN LAST 6 MONTHS - NONE FOUND Gen: alert, in no acute distress, current vital signs reviewed Neck: normal appearing neck, supple, no masses, thyroid not enlarged Resp: no respiratory distress, normal rate and effort, no accessory muscle use, breath sounds clear to auscultation bilaterally, no wheezing or rhonchi CV: HRRR, normal S1/S2, no murmur, no carotid bruit, no LE edema Abd: soft, nontender, nondistended, normal bowel sounds Psych: alert and awake, mood and affect appropriate, judgement not impaired Skin: b/l superficial gluteal cleft skin tears; small size; no bleeding, drainage, or surrounding erythema Data/Labs: Outside labs reviewed in [facility]. Of note: 04/19/24 WBC 6.6 Hgb 13.0 Plt 201 TSH 1.96 LFTs wnl Na 138 K 1.51 Ca 8.8 Assessment and Plan: 1. Routine health maintenance Overall doing well. Largely confined to electric wheelchair, but working with PT at assisted living. Mood is good. No smoking > 35 years. No etoh consumption. No further cancer screening given age and co-morbidities. UTD on Pneumonia, Tdap, Shingrix vaccines. F/u 1 year or as needed. 2. HTN, CHF BP elevated, but consistently normal at home. No volume overload on exam. Asymptomatic. Continue Losartan 25mg and Torsemide 10mg daily. 3. HL, CAD, Hx CVA Continue Atorvastatin 80mg daily. 4. Paroxysmal AFib Continue Apixaban 5mg BID for vte prophylaxis. 5. Type II DM Managed by Endo. Continuing Semaglutide 1mg weekly, Glargine 25 units daily, Aspart sliding scale with meals, Empagliflozin 25mg daily. 6. Depression Mood stable. Continue Escitalopram 10mg and Bupropion 150mg daily. 7. CKD3a Stable. 8. Vision changes No recurrences since outside ED visit. Pt to f/u with outside eye doctor. 9. Skin tears, gluteal Start Mepilex daily. Monitor for new signs of infection. Pt voiced understanding and agreement with plan. All questions answered. 40-54 minutes spent reviewing records, examining patient, and documenting findings. /jeffry/ Ced Epstein D.O. Staff Physician Signed: 05/07/2024 09:38 CED EPSTEIN [facility]
--- OUTSIDE RECORDS SUMMARY | 2024-06-02 00:48 | XMS_ITS | Encounter Summary ---
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 Organization [place] of [facility] [place] Address [address] [place] [address] Care Team Providers Care Well Drill Operator Rotary Drill Name Role Phone LUCIANCED Primary Care Provider [...] [place] [facility] ([place]NR) MEDICARE [facility] ([facility]) Sep 29, 2019 [id number] ONI DURAN MON PATIENT [place] [facility] (WNR) MEDICARE (M) [facility] ([facility]) Sep 29, 2008 [id number] RENEE,SI MON PATIENT [place] [facility] (WNR) MEDICARE ADVANTAGE [facility] (R) Sep 29, 2008 [id number] RENEE,SI MON PATIENT UCARE [facility] (WNR) MEDICARE [facility] ([facility]) Sep 29, 2019 [id number] ONI DURAN PATIENT [facility] [place] [facility] (WNR) MEDICARE ADVANTAGE [facility] (WNR) Sep 29, 2010 [id number] ONI DURAN PATIENT Selected Encounter This section includes the information on record at [place] for the Encounter. Date/Time Encounter Type Encounter Description Reason Pro vider Source Apr 09, 2024 02:03 PM Outpatient Encounter PRIMARY CARE/MEDICINE IHE Encounter Template Text not used by [place] Plan of Treatment: Future Appointments (+ 6 months) and Future Tests (+/- 45 days) The Plan of Treatment section includes future care activities for the [facility] [place] [facility] This section includes future appointments and future orders which are active, pending or scheduled. Future Appointments This section includes appointments that were scheduled to occur 6 months from the date of the Encounter, up to a maximum of 20 appointments. The data comes from all [facility]. Appointment Date/Time Appointment Type Appointme nt Facility Name Apr 19, 2024 11:15 PM AMBULATORY - NONE [facility] Apr 28, 2024 02:30 PM [facility] May 11, 2024 12:42 PM AMBULATORY - MEDICINE [facility] May 11, 2024 05:00 PM AMBULATORY - NONE [facility] May 14, 2024 04:50 PM AMBULATORY - NONE [facility] Sep 08, 2024 01:15 PM AMBULATORY - MEDICINE [facility] Sep 08, 2024 01:30 PM AMBULATORY - MEDICINE [facility] Sep 08, 2024 02:30 PM AMBULATORY - MEDICINE [facility] Active, Pending, and Scheduled Orders This section includes a listing of several types of active, pending, and scheduled orders, including clinic medications orders, diagnostic test orders, procedure orders and consult orders; where the start date of the order is 45 days before the date of the Encounter or 45 days after the date of theEncounter. The data comes from all [facility]. Test Date/Time Test Type Test Details Facility Name Apr 05, 2024 12:00 AM Laboratory - Chemistry Order AST/SGOT PLASMA SP [facility] Apr 05, 2024 12:00 AM Laboratory - Chemistry Order CBC BLOOD SP ONCE [facility] Apr 05, 2024 12:00 AM Laboratory - Chemistry Order BASIC METABOLIC PANEL+MG PLASMA SP [facility] Apr 05, 2024 12:00 AM Laboratory - Chemistry Order ALT/SGPT PLASMA SP [facility] May 11, 2024 04:49 PM Laboratory - Microbiology Order CULTURE & SUSCEPTIBILITY URINE WC ONCE [facility] May 13, 2024 12:00 AM Laboratory - Chemistry Order ALBUMIN/CREATININE RATIO URINE URINE WC ONCE [facility] May 13, 2024 12:00 AM Laboratory - Chemistry Order BASIC METABOLIC PANEL+MG PLASMA SP ONCE [facility] May 13, 2024 12:00 AM Laboratory - Chemistry Order LIPID PANEL,NON-FASTING PLASMA SP ONCE [facility] Social History: Smoking Status (Most current) [...] 10, 2023 03:30 PM VA-TOBACCO FORMER USER [facility] Tobacco Use History This section includes a history of the smoking, or tobacco-related health factors, that were collected on or before the date of the Encounter. The data comes from the [place] facility where the Encounter took place. Date/Time Smoking Status/Tobacco Use Comment F acility Sep 10, 2023 03:30 PM VA-TOBACCO QUIT 15 YRS OR MORE [facility] Jun 13, 2020 10:00 AM VA-TOBACCO FORMER USER [facility] Jun 13, 2020 10:00 AM VA-TOBACCO QUIT 15 YRS OR MORE [facility] May 20, 2019 12:18 PM VA-TOBACCO FORMER USER [facility] May 20, 2019 12:18 PM VA-TOBACCO QUIT 15 YRS OR MORE [facility] Jul 30, 2018 08:31 AM VA-TOBACCO FORMER USER [facility] Jul 30, 2018 08:31 AM VA-TOBACCO QUIT 15 YRS OR MORE [facility] Aug 25, 2017 08:04 AM FORMER TOBACCO USER 7Y OR GREATE R [facility] Nov 08, 2016 08:12 AM FORMER TOBACCO USER 7Y OR GREATE R [facility] Nov 29, 2015 12:46 PM FORMER TOBACCO USER 7Y OR GREATE R [facility] February 23, 2015 12:57 PM FORMER TOBACCO USER 7Y OR GREATE R [facility] January 27, 2014 10:10 AM FORMER TOBACCO USER 7Y OR GREATE R [facility] Mar 17, 2007 09:11 AM FORMER TOBACCO USER 7Y OR SERA R [facility] Advance Directives: All historical and current [...] Mar 17, 2007 ADVANCE DIRECTIVE [facility] Encounter Notes: All associated encounter notes This section contains the clinical notes associated to the Encounter. Date/Time Encounter Note(s) Provider Source Apr 09, 2024 02:03 PM HOME HEALTH REFERR AL NOTE: LOCAL TITLE: [facility] C[facility] STANDARD TITLE: HOME HEALTH REFERRAL NOTE DATE OF NOTE: APR 09, 2024@14:03 ENTRY DATE: APR 09, 2024@14:03:43 AUTHOR: JOSE PHILIP EXP COSIGNER: URGENCY: STATUS: COMPLETED HOME HEALTH CARE CERTIFICATION AND PLAN OF CARE SIGNED BY: Dr. Cline for [facility] in [place], [place] Certification period From: Feb To: Apr /jeffry/ JOSE FREEDMAN Signed: 04/09/2024 14:04 JOSE PHILIP [facility]
--- OUTSIDE RECORDS SUMMARY | 2024-06-02 00:48 | XMS_ITS | Encounter Summary ---
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 [place] [facility] Address [address] [place] [address] Care Team Providers Care Wind Farm Operations Manager Name Role Phone LUCIAN CED Primary Care [...] Patient's Relationship to Policy Mar U-CARE OF [facility] (WNR) MEDICARE [facility] ([facility]) Sep 29, 2019 [id number] [phone] ONI DURAN MON PATIENT [place] [facility] ([place]NR) MEDICARE (M) [facility] ([facility]) Sep 29, 2008 [id number] [phone] [id number] ONI DURAN MON PATIENT [place] [facility] ([place]) MEDICARE ADVANTAGE [facility] ([facility]) Sep 29, 2008 [id number] ONI DURAN MON PATIENT [facility] (WNR) MEDICARE [facility] ([facility]) Sep 29, 2019 [id number] ONI DURAN PATIENT [facility] [place] [facility] (WNR) MEDICARE ADVANTAGE [facility] (WNR) Sep 29, 2010 [id number] 42 ONI DURAN PATIENT Selected Encounter This section includes the information on record at [place] for the Encounter. Date/Time Encounter Type Encounter Description Reason Pro vider Source Mar 30, 2024 08:26 AM Outpatient Encounter TELEPHONE/SURGERY IHE Encounter Template Text not used by [place] Plan of Treatment: Future Appointments (+ 6 months) and Future Tests (+/- 45 days) The Plan of Treatment section includes future care activities for the patient [facility] [place] [facility]. This section includes future appointments and future orders which are active, pending or scheduled. Future Appointments This section includes appointments that were scheduled to occur 6 months from the date of the Encounter, up to a maximum of 20 appointments. The data comes from all [facility]. Appointment Date/Time Appointment Type Appointme nt Facility Name Apr 19, 2024 11:15 PM AMBULATORY - NONE [facility] Apr 28, 2024 02:30 PM AMBULATORY - MEDICINE [facility] May 11, 2024 12:42 PM AMBULATORY - MEDICINE [facility] May 11, 2024 05:00 PM AMBULATORY - NONE [facility] May 14, 2024 04:50 PM AMBULATORY - NONE [facility] Sep 08, 2024 01:15 PM AMBULATORY - MEDICINE [facility] Sep 08, 2024 01:30 PM AMBULATORY - MEDICINE [facility] Sep 08, 2024 02:30 PM AMBULATORY - MEDICINE [facility] Active, Pending, and Scheduled Orders This section includes a listing of several types of active, pending, and scheduled orders, including clinic medications orders, diagnostic test orders, procedure orders and consult orders; where the start date of the order is 45 days before the date of the Encounter or 45 days after the date of theEncounter. The data comes from all [facility]. Test Date/Time Test Type Test Details Facility Name Apr 05, 2024 12:00 AM Laboratory - Chemistry Order AST/SGOT PLASMA SP [facility] Apr 05, 2024 12:00 AM Laboratory - Chemistry Order CBC BLOOD SP ONCE [facility] Apr 05, 2024 12:00 AM Laboratory - Chemistry Order BASIC METABOLIC PANEL+MG PLASMA SP [facility] Apr 05, 2024 12:00 AM Laboratory - Chemistry Order ALT/SGPT PLASMA SP [facility] May 11, 2024 04:49 PM Laboratory - Microbiology Order CULTURE & SUSCEPTIBILITY URINE WC ONCE [facility] May 13, 2024 12:00 AM Laboratory - Chemistry Order ALBUMIN/CREATININE RATIO URINE URINE WC ONCE [facility] May 13, 2024 12:00 AM Laboratory - Chemistry Order BASIC METABOLIC PANEL+MG PLASMA SP ONCE [facility] May 13, 2024 12:00 AM Laboratory - Chemistry Order LIPID PANEL,NON-FASTING PLASMA SP ONCE [facility] Social History: Smoking Status (Most current) [...] 10, 2023 03:30 PM VA-TOBACCO FORMER USER [facility] Tobacco Use History This section includes a history of the smoking, or tobacco-related health factors, that were collected on or before the date of the Encounter. The data comes from the [place] facility where the Encounter took place. Date/Time Smoking Status/Tobacco Use Comment F acility Sep 10, 2023 03:30 PM VA-TOBACCO QUIT 15 YRS OR MORE [facility] Jun 13, 2020 10:00 AM VA-TOBACCO FORMER USER [facility] Jun 13, 2020 10:00 AM VA-TOBACCO QUIT 15 YRS OR MORE [facility] May 20, 2019 12:18 PM VA-TOBACCO FORMER USER [facility] May 20, 2019 12:18 PM VA-TOBACCO QUIT 15 YRS OR MORE [facility] Jul 30, 2018 08:31 AM VA-TOBACCO FORMER USER [facility] Jul 30, 2018 08:31 AM VA-TOBACCO QUIT 15 YRS OR MORE [facility] Aug 25, 2017 08:04 AM FORMER TOBACCO USER 7Y OR GREATE R [facility] Nov 08, 2016 08:12 AM FORMER TOBACCO USER 7Y OR GREATE R [facility] Nov 29, 2015 12:46 PM FORMER TOBACCO USER 7Y OR GREATE R [facility] February 23, 2015 12:57 PM FORMER TOBACCO USER 7Y OR GREATE R [facility] January 27, 2014 10:10 AM FORMER TOBACCO USER 7Y OR [facility] Wendy [facility] Mar 17, 2007 09:11 AM FORMER TOBACCO USER 7Y OR [facility] Advance Directives: All historical and [...] Mar 17, 2007 ADVANCE DIRECTIVE [facility]BERTO [facility] Pathology Reports: +/- 30 days of [...] COSIGNER: URGENCY: STATUS: COMPLETED $APHDR Reporting Lab: [facility] [CLIA# [id number]] [place] [address] - - - - - - - [...] CE. (D)SMcCoy MICROSCOPIC DESCRIPTION: Microscopic examination performed. [facility]. Diagnosis: Skin, Right preauricular cheek shave, biopsy-- - Sebaceous adenoma. /jeffry/ FELIPE CABRERA STAFF PATHOLOGIST Signed Mar 08, 2024@15:56 Performing Laboratory: Surgical Pathology Report Performed By: [facility] [CLIA# [id number]] [place] [address] $FTR - - - - - - - - - - - - - - - - - - - - - - - - - - - - - - - - - - - - - - - - (End of report) FELIPE CABRERA MD [facility] Date Mar 05, 2024 - - - - - - - - - - - - - - - - - - - - - - - - - - - - - - - - - - - - - - - - BETH DURAN STANDARD FORM 515 ID:[id number] SEX:M :[id number] AGE: 78 LOC:1068 PCP: Ced Cline MD /jeffry/ FELIPE CABRERA STAFF PATHOLOGIST Signed: 03/08/2024 15:56 FELIPE CABRERA [facility] Encounter Notes: All associated encounter notes This section contains the clinical notes associated to the Encounter. Date/Time Encounter Note(s) Provider Source Mar 30, 2024 09:06 AM ADDENDUM: LOCAL TITLE: Addendum STANDARD TITLE: ADDENDUM DATE OF NOTE: MAR 30, 2024@09:06:01 ENTRY DATE: MAR 30, 2024@09:06:02 AUTHOR: VAZQUEZ FERGUSON EXP COSIGNER: URGENCY: STATUS: COMPLETED Kim ([phone]) with [facility] called to report patient has a scab 1/2 size of a pencil eraser. Kim requests to d/c cares from 3x week to Friday and Friday. Verbal approval to d/c care to Friday and Fridays was obtained by Dr. Jay and verbal orders given to Kim /zhanna FERGUSON LPN LICENSED PRACTICAL NURSE Signed: 03/30/2024 09:12 Receipt Acknowledged By: 04/02/2024 11:57 /zhanna SAAVEDRA MD INTERNAL MEDICINE/DERMATOLOGY STAFF === --- Original Document --- 03/30/24 PATIENT CONTACT NOTE - DERMATOLOGY: Received VM from Kim ([phone]) from [facility] calling with regards to Mr Renee's wounds. Attempted to call back, left VM with clinic number. /zhanna LOOMIS POT FIRER NURSE Signed: 03/30/2024 08:28 VAZQUEZ FERGUSON [facility] Mar 30, 2024 08:26 AM COMMUNICATION NOTE : LOCAL TITLE: PATIENT CONTACT NOTE - DERMATOLOGY STANDARD TITLE: COMMUNICATION NOTE DATE OF NOTE: MAR 30, 2024@08:26 ENTRY DATE: MAR 30, 2024@08:26:41 AUTHOR: NÉSTOR LOOMIS EXP COSIGNER: URGENCY: STATUS: COMPLETED PATIENT CONTACT NOTE - DERMATOLOGY Has ADDENDA Received VM from Kim ([phone]) from [facility] calling with regards to Mr Renee's wounds. Attempted to call back, left VM with clinic number. /zhanna LOOMIS POT FIRER NURSE Signed: 03/30/2024 08:28 03/30/2024 ADDENDUM STATUS: COMPLETED Kim ([phone]) with [facility] called to report patient has a scab 1/2 size of a pencil eraser. Kim requests to d/c cares from 3x week to Friday and Friday. Verbal approval to d/c care to Friday and Fridays was obtained by Dr. Jay and verbal orders given to Kim /zhanna FERGUSON LPN LICENSED PRACTICAL NURSE Signed: 03/30/2024 09:12 Receipt Acknowledged By: 04/02/2024 11:57 /zhanna SAAVEDRA MD INTERNAL MEDICINE/DERMATOLOGY STAFF 04/13/2024 ADDENDUM STATUS: COMPLETED Per Kim from [facility], home cares have been DC'd since the wound is completely healed. /jeffry/ ANDRIY FRANCO LPN LICENSED PRACTICAL NURSE Signed: 04/13/2024 14:12 NÉSTOR LOOMIS [facility]
--- OUTSIDE RECORDS SUMMARY | 2024-06-02 00:48 | XMS_ITS | Encounter Summary ---
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 ([place]) Organization [facility] Address [address] [place] [address] Care Team Providers Care Hvac Service Tech Name Role Phone CED EPSTEIN Primary Care [...] OF [place] [facility] ([place]NR) MEDICARE [facility]) Sep 29, 2019 [id number] ONI DURAN MON PATIENT [facility] [place] [facility] (WNR[place] MEDICARE (M) [facility] ([facility]) Sep 29, 2008 [id number] ONI DURAN MON PATIENT [facility] [place] [facility] (WNR) MEDICARE ADVANTAGE [facility] (R) Sep 29, 2008 [id number] [phone] ONI DURAN MON PATIENT UCARE [facility] (WNR) MEDICARE [facility] ([facility]) Sep 29, 2019 [id number] ONI DURAN PATIENT [facility] (WNR) MEDICARE ADVANTAGE [facility] (WNR) Sep 29, 2010 [id number] ONI DURAN PATIENT Selected Encounter This section includes the information on record at [place] for the Encounter. Date/Time Encounter Type Encounter Description Reason Provider Source Apr 13, 2024 08:11 AM ENTEROSTOMAL THERAPY BY A RE TELEPHONE/SURGERY ICD-10-CM Z48.00 Encounter for change or removal of nonsurg wound dressing JEAN PIERRE PAREKH Fidencio Encounter Template Text not used by [place] Assessments - Encounter Diagnoses This section includes the primary and secondary diagnoses documented for the Encounter. Date/Time Primary/Secondary Diagnosis Diagnosis Name Provider Source Apr 13, 2024 08:11 AM PRIMARY Encounter for change or removal of nonsurg wound dressing JEAN PIERRE PAREKH [facility] Plan of Treatment: Future Appointments (+ [...] 19, 2024 11:15 PM AMBULATORY - NONE [facility] Apr 28, 2024 02:30 PM AMBULATORY - MEDICINE [facility] May 11, 2024 12:42 PM AMBULATORY - MEDICINE [facility] May 11, 2024 05:00 PM AMBULATORY - NONE [facility] May 14, 2024 04:50 PM AMBULATORY - NONE [facility] Sep 08, 2024 01:15 PM AMBULATORY - MEDICINE [facility] Sep 08, 2024 01:30 PM AMBULATORY - MEDICINE [facility] Sep 08, 2024 02:30 PM AMBULATORY - MEDICINE [facility] Active, Pending, and Scheduled Orders This section includes a listing of several types of active, pending, and scheduled orders, including clinic medications orders, diagnostic test orders, procedure orders and consult orders; where the start date of the order is 45 days before the date of the Encounter or 45 days after the date of theEncounter. The data comes from all [place] treatment facilities. Test Date/Time Test Type Test Details Facility Name Apr 05, 2024 12:00 AM Laboratory - Chemistry Order AST/SGOT PLASMA SP [facility] Apr 05, 2024 12:00 AM Laboratory - Chemistry Order CBC BLOOD SP ONCE [facility] Apr 05, 2024 12:00 AM Laboratory - Chemistry Order BASIC METABOLIC PANEL+MG PLASMA SP [facility] Apr 05, 2024 12:00 AM Laboratory - Chemistry Order ALT/SGPT PLASMA SP [facility] May 11, 2024 04:49 PM Laboratory - Microbiology Order CULTURE & SUSCEPTIBILITY URINE WC ONCE [facility] May 13, 2024 12:00 AM Laboratory - Chemistry Order ALBUMIN/CREATININE RATIO URINE URINE WC ONCE [facility] May 13, 2024 12:00 AM Laboratory - Chemistry Order BASIC METABOLIC PANEL+MG PLASMA SP ONCE [facility] May 13, 2024 12:00 AM Laboratory - Chemistry Order LIPID PANEL,NON-FASTING PLASMA SP ONCE [facility] Lab Results: +/- 30 days of the encounter This section includes the Chemistry and Hematology Lab Results on record with [place] for the patient. Radiology Reports and Pathology Reports are provided separately, in subsequent sections. Lab Results This section contains the Chemistry/Hematology Results that were resulted 30 days before or 30 daysafter the date of the Encounter. Date/Time Source Result Type Result - Unit Interpretation Reference Range Comment May 11, 2024 02:05 PM [facility] URINALYSIS Specimen Type: URINE No comment entered. Ordering Provider: KELLIE GONZALEZ Report Released Date/Time: May 11, 2024 12:58 PM Reporting Lab: [facility] [id number] Performing Lab: [facility] [id number] URINE COLOR COLORLESS SPECIFIC GRAVITY 1.010 1.003-1.035 [...] May 11, 2024 01:00 PM [facility] EXTRA PURPLE TUBE Specimen Type: BLOOD No comment entered. Ordering Provider: KELLIE GONZALEZ Report Released Date/Time: May 11, 2024 01:11 PM Reporting Lab: [facility] [id number] Performing Lab: [facility] [phone] EXTRA PURPLE TUBE RECEIVED May 11, 2024 01:00 PM [facility] EXTRA BLUE TUBE Specimen Type: PLASMA No comment entered. Ordering Provider: KELLIE GONZALEZ Report Released Date/Time: May 11, 2024 01:11 PM Reporting Lab: [facility] [id number] Performing Lab: [facility] [phone] EXTRA BLUE TUBE RECEIVED May 11, 2024 01:00 PM [facility] EXTRA GOLD GEL TUBE Specimen Type: SERUM No comment entered. Ordering Provider: KELLIE GONZALEZ Report Released Date/Time: May 11, 2024 01:11 PM Reporting Lab: [facility] [id number] Performing Lab: [facility] [phone] EXTRA GOLD GEL TUBE RECEIVED May 11, 2024 01:00 PM [facility] PHOSPHORUS Specimen Type: PLASMA No comment entered. Ordering Provider: KELLIE GONZALEZ Report Released Date/Time: May 11, 2024 12:58 PM Reporting Lab: [facility] [phone] Performing Lab: [facility] [address] PHOSPHORUS 3.6 mg/dL 2.3-4.3 May 11, 2024 01:00 PM [facility] BASIC METABOLIC PANEL+MG Specimen Type: PLASMA No comment entered. Ordering Provider: KELLIE GONZALEZ Report Released Date/Time: May 11, 2024 12:58 PM Reporting Lab: [facility] [phone] Performing Lab: [facility] [phone] CREATININE 1.3 mg/dL H 0.7-1.2 UREA NITROGEN [...] 03:30 PM VA-TOBACCO FORMER USER [facility] Tobacco Use History This section includes a history of the smoking, or tobacco-related health factors, that were collected on or before the date of the Encounter. The data comes from the [place] facility where the Encounter took place. Date/Time Smoking Status/Tobacco Use Comment F acility Sep 10, 2023 03:30 PM VA-TOBACCO QUIT 15 YRS OR MORE [facility] Jun 13, 2020 10:00 AM VA-TOBACCO FORMER USER [facility] Jun 13, 2020 10:00 AM VA-TOBACCO QUIT 15 YRS OR MORE [facility] May 20, 2019 12:18 PM VA-TOBACCO FORMER USER [facility] May 20, 2019 12:18 PM VA-TOBACCO QUIT 15 YRS OR MORE [facility] Jul 30, 2018 08:31 AM VA-TOBACCO FORMER USER [facility] Jul 30, 2018 08:31 AM VA-TOBACCO QUIT 15 YRS OR MORE [facility] Aug 25, 2017 08:04 AM FORMER TOBACCO USER 7Y OR GREATE R [facility] Nov 08, 2016 08:12 AM FORMER TOBACCO USER 7Y OR GREATE R [facility] Nov 29, 2015 12:46 PM FORMER TOBACCO USER 7Y OR GREATE R [facility] February 23, 2015 12:57 PM FORMER TOBACCO USER 7Y OR GREATE R [facility] January 27, 2014 10:10 AM FORMER TOBACCO USER 7Y OR GREATE R [facility] Mar 17, 2007 09:11 AM FORMER TOBACCO USER 7Y OR GREATE R [facility] Advance Directives: All historical and current [...] 2007 ADVANCE DIRECTIVE ALBERTO RODRIGUEZ [facility] Encounter Notes: All associated encounter notes This section contains the clinical notes associated to the Encounter. Date/Time Encounter Note(s) Provider Source Apr 13, 2024 08:11 AM WOUND CARE CONSULT : LOCAL TITLE: WO NURSE CONSULT STANDARD TITLE: WOUND CARE CONSULT DATE OF NOTE: APR 13, 2024@08:11 ENTRY DATE: APR 13, 2024@08:11:11 AUTHOR: JEAN PIERRE PAREKH COSIGNER: URGENCY: STATUS: COMPLETED WO NURSE CONSULT Has ADDENDA WOUND OSTOMY CONTINENCE ([facility]) NURSING ASSESSMENT: REASON FOR CONSULT: right forearm skin tear following fall on 03/16 WOUND HISTORY: Around time 2022, stood and fainted, broke multiple ribs and his shoulder. Sustained injury to the R elbow. 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 Sometimes sustains trauma to the R elbow d/t no vision in the R eye. Seen in WO clinic in October 2023. Wound has since been reinjured. ASSESSMENT: Hims Coder called 's spouse Azra. She states that Vet would benefit from elbow pad refills, and continues to have R elbow skin tears and difficulty healing them. Per consult, wound is 7 x 2.8 cm skin tear, similar in size to wound seen in WOC clinic this past winter. WOUND TREATMENT/INTERVENTIONS/PLAN OF CARE: - cover arm for shower days ACTIVITY ORDERS/RECOMMENDATIONS: no restrictions related to wound care at this time R ELBOW WOUND: Change FRIDAY/FRIDAY and PRN - Remove dressing in place - Cleanse with wound cleanser and gauze - Gently dry with dry gauze - Apply hydrogel sheet over wound - Cover with ABD and kerlix if not using the elbow protector - Secure with band net needed GOALS: - heal wound - prevent further trauma to the elbow NEXT STEPS: - continue wound care per orders (twice weekly) - refer to dermatology d/t skin cancer hx for further evaluation if not healed in one month. History of skin cancer with MOHS surgery coming up in 01/11 EDUCATION: - wound care plan [facility] Call: [phone] POC: Spouse AZRA Carlos (EXTENDED FAMILY MEMBER) [id number] [id number] Phone number: [phone] SUPPLIES: - elbow pads (ordered from prosthetics for mail delivery) - wound care cleanser - gauze - Hydrogel sheets - kerlix - ABD pad - tape FOLLOW UP: will plan to follow up with homecare RN in 2 weeks for update on wound progress. -discussed with PA[facility] ALLEY Mayes, will alert to note for need of home care for wound /es/ RAMONA EASTON, RN, CWOCN Certified Wound, Ostomy, Continence Nurse Signed: 04/13/2024 08:25 Receipt Acknowledged By: 04/14/2024 11:19 /jeffry/ JACQUI DE LA GARZA RN REGISTERED NURSE 04/13/2024 ADDENDUM STATUS: COMPLETED WOC orders faxed to msg [facility] left yesterday w chief underwriter's direct # alerting them to wound. Will attempt again today if not contact has been made. /jeffry/ JACQUI DE LA GARZA RN REGISTERED NURSE Signed: 04/13/2024 08:44 04/13/2024 ADDENDUM STATUS: COMPLETED WOC orders verball discussed over phone and faxed to Rosio FERNÁNDEZ at [facility] /es/ JACQUI F. HOLLI, RN REGISTERED NURSE Signed: 04/13/2024 08:56 04/14/2024 ADDENDUM STATUS: COMPLETED HCN through [facility] reported they have closed him out spoke susana Rosio Garcia at [facility] where pt resides and reports area is scabbed over and her nursing staff can complete cares. Order faxed over yesterday, reports they do not need any supplies. Rosio's # is ([phone]) /jeffry/ JACQUI DE LA GARZA RN REGISTERED NURSE Signed: 04/14/2024 11:18 04/19/2024 ADDENDUM STATUS: COMPLETED WOC will sign off per chart review. PCP to reconsult WOC as needed for assistance with wounds. /jeffry/ RAMONA EASTON, RN, CWOCN Certified Wound, Ostomy, Continence Nurse Signed: 04/19/2024 14:32 JEAN PIERRE PAREKH [facility]
--- OUTSIDE RECORDS SUMMARY | 2024-06-02 00:48 | XMS_ITS | Encounter Summary ---
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 [place] Organization [facility] [place] Address [address] [place] [address] Care Team Providers Care Pneumatic Tester Name Role Phone LUCIAN CED Primary Care [...] Relationship to Policy Mar [facility] [facility] (WNR) MEDICARE ADVANTAGE [facility] (R) Sep 29, 2019 [id number] ONI DURAN MON PATIENT [facility] [place] [facility] (WNR) MEDICARE (M) [facility] (R) Sep 29, 2008 [id number] [phone] [id number] ONI DURAN MON PATIENT [facility] [place] [facility] (WNR) MEDICARE ADVANTAGE [facility] (WNR) Sep 29, 2008 [id number] ONI DURAN MON PATIENT [facility] (WNR) MEDICARE ADVANTAGE [facility] (WNR) Sep 29, 2019 [id number] ONI DURAN PATIENT [facility] (WNR) MEDICARE ADVANTAGE [facility] (WNR) Sep 29, 2010 [id number] 42 ONI DURAN PATIENT Selected Encounter This section includes the information on record at [place] for the Encounter. Date/Time Encounter Type Encounter Description Reason Provider Source Mar 29, 2024 02:00 PM NRPSYC TST EVAL PHYS/QHP 1ST PSYCHOLOGICAL TESTING ICD-10-CM F01.A0 Vascular dementia, mild, without beh/psych/mood /anx MARGGRAF,MATTH EW P IHE Encounter Template Text not used by [place] Assessments - Encounter Diagnoses This section includes the primary and secondary diagnoses documented for the Encounter. Date/Time Primary/Secondary Diagnosis Diagnosis Name Provider Source Mar 29, 2024 03:27 PM PRIMARY Vascular dementia, mild, without beh/psych/mood/an x MARGGRAF,MATTH EW P [facility] Mar 29, 2024 03:27 PM SECONDARY Cerebral infarction, unspecified MARGGRAF,MATTH EW P [facility] Mar 29, 2024 03:27 PM SECONDARY Heart failure, unspecified MARGGRAF,MATTH EW P [facility] Mar 29, 2024 03:27 PM SECONDARY Major depressive disorder, single episode, unspecified MARGGRAF,MATTH EW P [facility] Plan of Treatment: Future Appointments (+ 6 months) and Future Tests (+/- 45 days) The Plan of Treatment section includes future care activities for the patient from all [place] [facility] This section includes future appointments and future orders which are active, pending or scheduled. Future Appointments This section includes appointments that were scheduled to occur 6 months from the date of the Encounter, up to a maximum of 20 appointments. The data comes from all [place] treatment facilities. Appointment Date/Time Appointment Type Appointme nt Facility Name Apr 19, 2024 11:15 PM [place] [place] [facility] Apr 28, 2024 02:30 PM [facility] May 11, 2024 12:42 PM [facility] May 11, 2024 05:00 PM [facility] [place] [facility] [place] [facility] May 14, 2024 04:50 PM [facility] [place] [facility] Sep 08, 2024 01:15 PM AM[facility]ULATORY - MEDICINE [facility] Sep 08, 2024 01:30 PM [facility] Sep 08, 2024 02:30 PM [facility]ULATORY MEDICINE [facility] Active, Pending, and Scheduled Orders This section includes a listing of several types of active, pending, and scheduled orders, including clinic medications orders, diagnostic test orders, procedure orders and consult orders; where the start date of the order is 45 days before the date of the Encounter or 45 days after the date of theEncounter. The data comes from all [facility] facilities. Test Date/Time Test Type Test Details Facility Name Apr 05, 2024 12:00 AM Laboratory - Chemistry Order AST/SGOT PLASMA SP [facility] Apr 05, 2024 12:00 AM Laboratory - Chemistry Order CBC BLOOD SP ONCE [facility] Apr 05, 2024 12:00 AM Laboratory - Chemistry Order ALT/SGPT PLASMA SP [facility] Apr 05, 2024 12:00 AM Laboratory - Chemistry Order BASIC METABOLIC PANEL+MG PLASMA SP [facility] May 11, 2024 04:49 PM Laboratory - Microbiology Order CULTURE & SUSCEPTIBILITY URINE WC ONCE [facility] May 13, 2024 12:00 AM Laboratory - Chemistry Order LIPID PANEL,NON-FASTING PLASMA SP ONCE [facility] May 13, 2024 12:00 AM Laboratory - Chemistry Order BASIC METABOLIC PANEL+MG PLASMA SP ONCE [facility] May 13, 2024 12:00 AM Laboratory - Chemistry Order ALBUMIN/CREATININE RATIO URINE URINE WC ONCE [facility] Social History: Smoking Status (Most current) and Tobacco Use (All prior to encounter date) This section includes the most current, and the historical, smoking and tobacco- related health factors from the [place] facility where the Encounter took place. Current [...] USER 7Y OR GREATE R [facility] Advance Directives: All historical [...] COSIGNER: URGENCY: STATUS: COMPLETED $APHDR Reporting Lab: [facility] [CLIA# [id number]] [place] [address] - - - - - - - [...] - - - PATHOLOGY REPORT Accession No. [id number] - - - - - [...] 0.2 cm. The specimen is inked. CE. [place] [place]: Microscopic examination performed. [facility]. Diagnosis: Skin, Right preauricular cheek shave, biopsy-- - Sebaceous adenoma. /jeffry/ FELIPE CABRERA STAFF PATHOLOGIST Signed Mar 08, 2024@15:56 Performing Laboratory: Surgical Pathology Report Performed By: [facility] [CLIA# [id number]] [place] [address] $FTR - - - - - - [...] - - BETH DURAN STANDARD FORM 515 ID:[id number] SEX:M :1945 AGE: 78 LOC:1068 PCP: Ced Cline MD /jeffry/ FELIPE CABRERA STAFF PATHOLOGIST Signed: 03/08/2024 15:56 FELIPE CABRERA [facility] Encounter Notes: All associated encounter notes This section contains the clinical notes associated to the Encounter. Date/Time Encounter Note(s) Provider Source Mar 29, 2024 02:00 PM NEUROPSYCHOLOGY NOTE: LOCAL TITLE: NEUROPSYCHOLOGY PROGRESS NOTE STANDARD TITLE: NEUROPSYCHOLOGY NOTE DATE OF NOTE: MAR 29, 2024@14:00 ENTRY DATE: MAR 29, 2024@14:22:36 AUTHOR: MAYDA STARR COSIGNER: URGENCY: STATUS: COMPLETED Neuropsychological Feedback Session Session Length: 60 minutes was seen today to provide verbal feedback regarding the results of his neuropsychological evaluation. He presented to the appointment on time and was accompanied by his . The content of the feedback was as outlined in the Summary/Impressions and Recommendations for Treatment Planning sections of the evaluation report. The reader is referred to this report for details. The reason for neuropsychological evaluation was reviewed along with a simple explanation about how scores were interpreted. Areas assessed were reviewed noting strengths/weaknesses. Diagnosis, etiological considerations, and recommendations for treatment planning as outlined in the Neuropsychology consult note dated 03/02/24 were discussed. In brief, discussed the limited nature of the current exam due to 's inability to use his dominant right hand and residual visual deficits. Test results were indicative of deficits on measures of processing speed, visual orientation, new learning/memory, and executive functioning. Pattern of deficits was primarily reflective of frontal subcortical dysfunction. Cerebrovascular disease/CVA is thought to be the primary etiology. An additional emerging cortical neurodegenerative disease process (i.e., Alzheimer's disease) cannot be definitively ruled out given the 's age and report of progressive decline. Discussed that test results in combination with reported functional status, likely meet criteria for a Major Neurocognitive Disorder; however, acknowledged that 's functional capabilities are likely significantly impacted by residual physical limitations following his stroke. The appears to have insight into his need for support with I/ADLs and that he would need significant support and improvement in his current phsysical abilities before he would be able return home. Unfortunately, the and have not been able to locate any services that would provide the level/frequency of in-home support needed by the Lucas at this time. There appears to be significant tension between the Lucas and his regarding this issue. Specifically, the Lucas does not feel supported by his in his efforts to attempt to return home or continue looking for services that could provide necessary support. Without records from his [facility] where he is receiving OT/PT it is unclear what type of physical improvement is consider realistic at this point. Recommendations for treatment planning were discussed. Discussed that while does have cognitive difficulties, the biggest barrier to returning home at this point appears primarily due to his physical limitations. It is unclear if 's medical providers at [facility] have determined whether he is able to physically able to return home at this point and I would defer to his medical providers on this matter. Lucas's reported she is not able to provide the amount of support needs on her own. Discussed that objective functional assessment through OT may provide a better idea of what type of support is needed. Records indicate that the Lucas's declined an OT home safety evaluation and has no plans to have Lucas return home or make home adjustments (see 01/30/24 Patient Contact note). Encouraged the and his to reach out to primary care social work to see if they are aware of any other community options for in home care. 's stated that she has been in contact with the [facility] and they are only eligble for 6 hours per week, which she perceives is not enough. Unclear what other options are available at this point. The importance of managing cardiovascular conditions and increased participation in social and mentally-stimulating activities were reviewed. The and his did not express any further questions or concerns about the evaluation at this time. They were encouraged to contact the undersigned if questions arise in the future. PATIENT CONSENT/EDUCATION: At initial assessment appointment, provided consent to procedures and reported understanding of the limits to confidentiality. Today indicated readiness to learn for the education provided during this session as noted above. Lucas also indicated understanding by asking questions and making appropriate comments. RISK ASSESSMENT: Clinical reminder for suicide screen completed today (see below). denied any suicidal ideation, intent, plan, or behavior in the past 30 days. Risk factors: Older white male, history of sucidal ideation (secondary to limited independence) without plan or intent (most recent in December 2023), loss of mobility/independence, impulsivity, history of depression, cognitive impairment Protective factors: absence of current suicidal/homicidal ideation, intent, plan, or behavior, no known history of suicide attempt or psychiatric inpatient hospitalization, no substance use issues, 21/04 supervision at [facility], no access to firearms, perceived social support from family, future oriented. Risk Determination: Suicide: Acute = Low. Chronic = Intermediate Homicide: Acute = Low. Chronic = Low. Diagnoses (DSM-5 Criteria): Major Neurocognitive disorder, due to multiple etiologies (primary: Vascular disease) Suicide Screen: C-SSRS Screening [place]-Suicide Severity Rating Scale (C-SSRS Screener) 1. Over the past month, have you wished you were or wished you could go to sleep and not wake up? No 2. Over the past month, have you had any actual thoughts of killing yourself? No 3. Over the past month, have you been thinking about how you might do this? Response not required due to responses to other questions. 4. Over the past month, have you had these thoughts and had some intention of acting on them? Response not required due to responses to other questions. 5. Over the past month, have you started to work out or worked out the details of how to kill yourself? Response not required due to responses to other questions. 6. If yes, at any time in the past month did you intend to carry out this plan? Response not required due to responses to other questions. 7. In your lifetime, have you ever done anything, started to do anything, or prepared to do anything to end your life (for example, collected pills, obtained a gun, gave away valuables, went to the roof but didn't jump)? No 8. If YES, was this within the past 3 months? Response not required due to responses to other questions. /jeffry/ Mayda Starr, PhD Staff Neuropsychologist Signed: 03/31/2024 13:06 Receipt Acknowledged By: 03/31/2024 13:34 /jeffry/ Ced Cline D.O. Staff Physician MAYDA STARR [facility]
--- OUTSIDE RECORDS SUMMARY | 2024-06-02 00:48 | XMS_ITS | Encounter Summary ---
Author Name [facility] Organization [facility] Address [address] [place] [address] Care Team Providers Care Social Services Manager Name Role Phone CED EPSTEIN Primary Care [...] Relationship to Policy Mar [facility] [facility] (WNR) MEDICARE ADVANTAGE [facility] ([facility]) Sep 29, 2019 [id number] [phone] RENEE,SI MON PATIENT [facility] [place] [facility] (WNR) MEDICARE (M) [facility] ([facility]) Sep 29, 2008 [id number] RENEE,SI MON PATIENT [facility] [place] [facility] (WNR) MEDICARE ADVANTAGE [facility] ([facility]) Sep 29, 2008 [id number] RENEE,SI MON PATIENT [facility] (WNR) MEDICARE ADVANTAGE [facility] ([facility]) Sep 29, 2019 [id number] 00 ONI DURAN PATIENT [facility] (WNR) MEDICARE ADVANTAGE [facility] (WNR) Sep 29, 2010 [id number] 42 ONI DURAN PATIENT Selected Encounter This section includes the information on record at [place] for the Encounter. Date/Time Encounter Type Encounter Description Reason Pro vider Source IHE Encounter Template Text not used by [place] Advance Directives: All historical and current Section [...] Mar 17, 2007 ADVANCE DIRECTIVE ALBERTO RODRIGUEZ [facility]
--- OUTSIDE RECORDS SUMMARY | 2024-06-02 00:48 | XMS_ITS | Encounter Summary ---
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 Address [address] [place] [address] Care Team Providers Care Geospatial Technologist Name Role Phone LUCIANCED Primary Care Provider [...] Relationship to Policy Mar [facility] [place] [facility] (WNR) MEDICARE [facility] ([facility]) Sep 29, 2019 [id number] 00 ONI DURAN MON PATIENT [facility] [place] [facility] ([place]NR) MEDICARE (M) [facility] ([facility]) Sep 29, 2008 [id number] 1100 ONI DURAN MON PATIENT [facility] [place] [facility] (WNR) MEDICARE ADVANTAGE [facility] ([facility]) Sep 29, 2008 [id number] RENEESI MON PATIENT [facility] (WNR) MEDICARE [facility] ([facility]) Sep 29, 2019 [id number] 00 ONI DURAN PATIENT [facility] (WNR) MEDICARE ADVANTAGE [facility] (WNR) Sep 29, 2010 [id number] 42 ONI DURAN PATIENT Selected Encounter This section includes the information on record at [place] for the Encounter. Date/Time Encounter Type Encounter Description Reason Pro vider Source Apr 16, 2024 02:07 PM Outpatient Encounter TELEPHONE PRIMARY CARE IHE Encounter Template Text not used by [place] Plan of Treatment: Future Appointments (+ 6 months) and Future Tests (+/- 45 days) The Plan of Treatment section includes future care activities for the patient from all [place] [facility]. This section includes future appointments and future orders which are active, pending or scheduled. Future Appointments This section includes appointments that were scheduled to occur 6 months from the date of the Encounter, up to a maximum of 20 appointments. The data comes from all [facility]. Appointment Date/Time Appointment Type Appointme nt Facility Name Apr 19, 2024 11:15 PM AMBULATORY - NONE [facility] Apr 28, 2024 02:30 PM AMBULATORY - MEDICINE [facility] May 11, 2024 12:42 PM AMBULATORY - MEDICINE [facility] May 11, 2024 05:00 PM AMBULATORY - NONE [facility] May 14, 2024 04:50 PM AMBULATORY - NONE [facility] Sep 08, 2024 01:15 PM AMBULATORY - MEDICINE [facility] Sep 08, 2024 01:30 PM AMBULATORY - MEDICINE [facility] Sep 08, 2024 02:30 PM AMBULATORY - MEDICINE [facility] Active, Pending, [...] of theEncounter. The data comes from all [facility]. Test Date/Time Test Type Test Details Facility Name Apr 05, 2024 12:00 AM Laboratory - Chemistry Order AST/SGOT PLASMA SP [facility] Apr 05, 2024 12:00 AM Laboratory - Chemistry Order CBC BLOOD SP ONCE [facility] Apr 05, 2024 12:00 AM Laboratory - Chemistry Order BASIC METABOLIC PANEL+MG PLASMA SP [facility] Apr 05, 2024 12:00 AM Laboratory - Chemistry Order ALT/SGPT PLASMA SP [facility] May 11, 2024 04:49 PM Laboratory - Microbiology Order CULTURE & SUSCEPTIBILITY URINE WC ONCE [facility] May 13, 2024 12:00 AM Laboratory - Chemistry Order ALBUMIN/CREATININE RATIO URINE URINE WC ONCE [facility] May 13, 2024 12:00 AM Laboratory - Chemistry Order BASIC METABOLIC PANEL+MG PLASMA SP ONCE [facility] May 13, 2024 12:00 AM Laboratory - Chemistry Order LIPID PANEL,NON-FASTING PLASMA SP ONCE [facility] Lab Results: +/- 30 days of the encounter This section includes the Chemistry and Hematology Lab Results on record with [place] for the patient. Radiology Reports and Pathology Reports are provided separately, in subsequent sections. Lab Results This section contains the Chemistry/Hematology Results that were resulted 30 days before or 30 daysafter the date of the Encounter. Date/Time Source Result Type Result - Unit Interpretation Reference Range Comment May 11, 2024 02:[address] [facility] URINALYSIS Specimen Type: URINE No comment entered. Ordering Provider: KELLIE GONZALEZ Report Released Date/Time: May 11, 2024 12:58 PM Reporting Lab: [facility] [id number] Performing Lab: [facility] [id number] URINE COLOR COLORLESS SPECIFIC GRAVITY 1.010 1.003-1.035 [...] 250 NEGATIVE May 11, 2024 01:[address] [facility] EXTRA PURPLE TUBE Specimen Type: BLOOD No comment entered. Ordering Provider: KELLIE GONZALEZ Report Released Date/Time: May 11, 2024 01:11 PM Reporting Lab: [facility] [id number] Performing Lab: [facility] [phone] EXTRA PURPLE TUBE RECEIVED May 11, 2024 01:[address] [facility] EXTRA BLUE TUBE Specimen Type: PLASMA No comment entered. Ordering Provider: KELLIE GONZALEZ Report Released Date/Time: May 11, 2024 01:11 PM Reporting Lab: [facility] [id number] Performing Lab: [facility] [address] EXTRA BLUE TUBE RECEIVED May 11, 2024 01:[address] [facility] EXTRA GOLD GEL TUBE Specimen Type: SERUM No comment entered. Ordering Provider: KELLIE GONZALEZ Report Released Date/Time: May 11, 2024 01:11 PM Reporting Lab: [facility] [phone] Performing Lab: [facility] [phone] EXTRA GOLD GEL TUBE RECEIVED May 11, 2024 01:[address] [facility] PHOSPHORUS Specimen Type: PLASMA No comment entered. Ordering Provider: KELLIE GONZALEZ Report Released Date/Time: May 11, 2024 12:58 PM Reporting Lab: [facility] [phone] Performing Lab: [facility] [address] PHOSPHORUS 3.6 mg/dL 2.3-4.3 May 11, 2024 01:[address] [facility] BASIC METABOLIC PANEL+MG Specimen Type: PLASMA No comment entered. Ordering Provider: KELLIE GONZALEZ Report Released Date/Time: May 11, 2024 12:58 PM Reporting Lab: [facility] [phone] Performing Lab: [facility] [phone] CREATININE 1.3 mg/dL H 0.7-1.2 UREA NITROGEN [...] and tobacco- related health factors from the [place] facility where the Encounter took place. Current Smoking Status This section includes the most current smoking, or tobacco-related health factor, from the [place] facility where the Encounter took place. Date/Time Current Smoking Status Comment Facil ity Sep 10, 2023 03:30 PM VA-TOBACCO FORMER USER [facility] Tobacco Use History This section includes a history of the smoking, or tobacco-related health factors, that were collected on or before the date of the Encounter. The data comes from the [place] facility where the Encounter took place. Date/Time Smoking Status/Tobacco Use Comment F acility Sep 10, 2023 03:30 PM VA-TOBACCO QUIT [address] [facility] Jun 13, 2020 10:00 AM VA-TOBACCO FORMER USER [facility] Jun 13, 2020 10:00 AM VA-TOBACCO QUIT [address] [facility] May 20, 2019 12:18 PM VA-TOBACCO FORMER USER [facility] May 20, 2019 12:18 PM VA-TOBACCO QUIT [address] [facility] Jul 30, 2018 08:31 AM VA-TOBACCO FORMER USER [facility] Jul 30, 2018 08:31 AM VA-TOBACCO QUIT [address] [facility] Aug 25, 2017 08:04 AM FORMER TOBACCO USER 7Y OR GREATE R [facility] Nov 08, 2016 08:12 AM FORMER TOBACCO USER 7Y OR GREATE R [facility] Nov 29, 2015 12:46 PM FORMER TOBACCO USER 7Y OR GREATE R [facility] February 23, 2015 12:57 PM FORMER TOBACCO USER 7Y OR GREATE R [facility] January 27, 2014 10:10 AM FORMER TOBACCO USER 7Y OR GREATE R [facility] Mar 17, 2007 09:11 AM FORMER TOBACCO USER 7Y OR GRE[address] R [facility] Advance Directives: All historical and current Section Date Range: From patient's date of to the date document was created. This section includes ALL of a patient's completed or amended [place] Advance and Rescinded Directives. The entries below indicate that a directive exists for the patient, but an actual copy is not included with this document. The data comes from all [facility]. Date Advance Directives Provider Source Mar 17, 2007 ADVANCE DIRECTIVE ALBERTO RODRIGUEZ [facility] Encounter Notes: All associated encounter notes This section contains the clinical notes associated to the Encounter. Date/Time Encounter Note(s) Provider Source Apr 16, 2024 02:08 PM REPORT OF CONTACT: LOCAL TITLE: PATIENT CONTACT NOTE STANDARD TITLE: REPORT OF CONTACT DATE OF NOTE: APR 16, 2024@14:08 ENTRY DATE: APR 16, 2024@14:08:15 AUTHOR: JACQUI DE LA GARZA EXP COSIGNER: URGENCY: STATUS: COMPLETED Patient contact Name of : BETH DURAN Name/Relationship of Contact if other than : Date & Time of Contact: Mar@14:08 Type of Contact: Telephone Reason for Contact: job specification writer received VM from pt spouse Azra regarding information told to her from an aid that works at pt assisted living facility regarding his penis, per aid stated thinks that foreskin can't be pulled back on penis and might be oozing stuff Games Dealer attempted to reach Azra x2 phone call did not go through. LVM with Rosio FERNÁNDEZ at pt assisted living facility to understand more details. If pt foreskin is unable to be pulled forward back over the penis pt should seek emergent care to prevent cutting of circulation in blood flow. /jeffry/ JACQUI DE LA GARZA, RN REGISTERED NURSE Signed: 04/16/2024 14:[address] [facility]
--- OUTSIDE RECORDS SUMMARY | 2024-06-02 00:48 | XMS_ITS | Encounter Summary ---
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 [place] [facility] Address [address] [place] [address] Care Team Providers Care Lactation Nurse Name Role Phone LUCIANCED Primary Care Provider [...] Relationship to Policy Mar [facility] [place] [facility] ([place]NR) MEDICARE [facility] ([facility]) Sep 29, 2019 [id number] ONI DURAN MON PATIENT [facility] [place] [facility] ([place]) MEDICARE ([place]) [facility] ([facility]) Sep 29, 2008 [id number] ONI DURAN MON PATIENT [facility] [place] [facility] ([place]) MEDICARE ADVANTAGE [facility] ([facility]) Sep 29, 2008 [id number] RENEESI MON PATIENT [facility] (WNR) MEDICARE [facility] ([facility]) Sep 29, 2019 [id number] ONI DURAN PATIENT [facility] [place] [facility] (WNR) MEDICARE ADVANTAGE [facility] (WNR) Sep 29, 2010 [id number] 42 ONI DURAN PATIENT Selected Encounter This section includes the information on record at [place] for the Encounter. Date/Time Encounter Type Encounter Description Reason Pro vider Source Apr 05, 2024 10:14 AM Outpatient Encounter TELEPHONE PRIMARY CARE IHE Encounter Template Text not used by [place] Plan of Treatment: Future Appointments (+ 6 months) and Future Tests (+/- 45 days) The Plan of Treatment section includes future care activities for the [facility] [place] [facility] This section includes future appointments and future orders which are active, pending or scheduled. Future Appointments This section includes appointments that were scheduled to occur 6 months from the date of the Encounter, up to a maximum of 20 appointments. The data comes from all [facility]. Appointment Date/Time Appointment Type Appointme nt Facility Name Apr 19, 2024 11:15 PM AMBULATORY - NONE [facility] Apr 28, 2024 02:30 PM AMBULATORY - MEDICINE [facility] May 11, 2024 12:42 PM AMBULATORY - MEDICINE [facility] May 11, 2024 05:00 PM AMBULATORY - NONE [facility] May 14, 2024 04:50 PM AMBULATORY - NONE [facility] Sep 08, 2024 01:15 PM AMBULATORY - MEDICINE [facility] Sep 08, 2024 01:30 PM AMBULATORY - MEDICINE [facility] Sep 08, 2024 02:30 PM AMBULATORY - MEDICINE [facility] Active, Pending, and Scheduled Orders This section includes a listing of several types of active, pending, and scheduled orders, including clinic medications orders, diagnostic test orders, procedure orders and consult orders; where the start date of the order is 45 days before the date of the Encounter or 45 days after the date of theEncounter. The data comes from all [facility]. Test Date/Time Test Type Test Details Facility Name Apr 05, 2024 12:00 AM Laboratory - Chemistry Order ALT/SGPT PLASMA [facility] Apr 05, 2024 12:00 AM Laboratory - Chemistry Order AST/SGOT PLASMA [facility] Apr 05, 2024 12:00 AM Laboratory - Chemistry Order CBC BLOOD SP ONCE [facility] Apr 05, 2024 12:00 AM Laboratory - Chemistry Order BASIC METABOLIC PANEL+MG PLASMA SP [facility] May 11, 2024 04:49 PM Laboratory - Microbiology Order CULTURE & SUSCEPTIBILITY URINE WC ONCE [facility] May 13, 2024 12:00 AM Laboratory - Chemistry Order LIPID PANEL,NON-FASTING PLASMA SP ONCE [facility] May 13, 2024 12:00 AM Laboratory - Chemistry Order BASIC METABOLIC PANEL+MG PLASMA SP ONCE [facility] May 13, 2024 12:00 AM Laboratory - Chemistry Order ALBUMIN/CREATININE RATIO URINE URINE WC ONCE [facility] Social History: Smoking Status (Most current) and Tobacco Use (All prior to encounter date) This section includes the most current, and the historical, smoking and tobacco- related health factors from the [place] facility where the Encounter took place. Current Smoking Status This section includes the most current smoking, or tobacco-related health factor, from the [place] facility where the Encounter took place. Date/Time Current Smoking Status Comment Facil ity Sep 10, 2023 03:30 PM VA-TOBACCO QUIT 15 YRS OR MORE [facility] Tobacco Use History This section includes a history of the smoking, or tobacco-related health factors, that were collected on or before the date of the Encounter. The data comes from the [place] facility where the Encounter took place. Date/Time Smoking Status/Tobacco Use Comment F acility Sep 10, 2023 03:30 PM VA-TOBACCO QUIT 15 YRS OR MORE [facility] Jun 13, 2020 10:00 AM VA-TOBACCO FORMER USER [facility] Jun 13, 2020 10:00 AM VA-TOBACCO QUIT 15 YRS OR MORE [facility] May 20, 2019 12:18 PM VA-TOBACCO FORMER USER [facility] May 20, 2019 12:18 PM VA-TOBACCO QUIT 15 YRS OR MORE [facility] Jul 30, 2018 08:31 AM VA-TOBACCO FORMER USER [facility] Jul 30, 2018 08:31 AM VA-TOBACCO QUIT 15 YRS OR MORE [facility] Aug 25, 2017 08:04 AM FORMER TOBACCO USER 7Y OR GREATE R [facility] Nov 08, 2016 08:12 AM FORMER TOBACCO USER 7Y OR GREATE R [facility] Nov 29, 2015 12:46 PM FORMER TOBACCO USER 7Y OR GREATE R [facility] February 23, 2015 12:57 PM FORMER TOBACCO USER 7Y OR GREATE R [facility] January 27, 2014 10:10 AM FORMER TOBACCO USER 7Y OR GREATE R [facility] Mar 17, 2007 09:11 AM FORMER TOBACCO USER 7Y OR SERA R [facility] Advance Directives: All historical and current Section Date Range: From patient's date of to the date document was created. This section includes ALL of a patient's completed or amended [place] Advance and Rescinded Directives. The entries below indicate that a directive exists for the patient, but an actual copy is not included with this document. The data comes from all [place] facilities. Date Advance Directives Provider Source Mar 17, 2007 ADVANCE DIRECTIVE ROWENAALBERTO SHEARER [facility] Pathology Reports: +/- 30 [...] the Encounter. The data comes from all [place] treatment facilities. Date/Time Pathology Report Provider Source Mar 08, 2024 03:56 PM LR SURGICAL PATHOL OGY REPORT: LOCAL TITLE: LR SURGICAL PATHOLOGY REPORT STANDARD TITLE: PATHOLOGY REPORT DATE OF NOTE: MAR 08, 2024@15:56:47 ENTRY DATE: MAR 08, 2024@15:56:47 AUTHOR: FELIPE CABRERA EXP COSIGNER: URGENCY: STATUS: COMPLETED $APHDR Reporting Lab: [facility] [CLIA# [id number]] [place] [address] - - - - - - - [...] CE. (D)SMcCoy MICROSCOPIC DESCRIPTION: Microscopic examination performed. [facility]. Diagnosis: Skin, Right preauricular cheek shave, biopsy-- - Sebaceous adenoma. /jeffry/ FELIPE CABRERA STAFF PATHOLOGIST Signed Mar 08, 2024@15:56 Performing Laboratory: Surgical Pathology Report Performed By: [facility] [CLIA# [id number]] [place] [address] $FTR - - - - - - - - - - - - - - - - - - - - - - - - - - - - - - - - - - - - - - - - (End of report) FELIPE CABRERA MD [facility] Date Mar 05, 2024 - - - - - - - - - - - - - - - - - - - - - - - - - - - - - - - - - - - - - - - - BETH DURAN STANDARD FORM 515 ID:[id number] SEX:M :1945 AGE: 78 LOC:1068 PCP: Ced Epstein MD /jeffry/ FELIPE CABRERA STAFF PATHOLOGIST Signed: 03/08/2024 15:56 FELIPE CABRERA [facility] Encounter Notes: All associated encounter notes This section contains the clinical notes associated to the Encounter. Date/Time Encounter Note(s) Provider Source Apr 09, 2024 11:31 AM ADDENDUM: LOCAL TITLE: Addendum STANDARD TITLE: ADDENDUM DATE OF NOTE: APR 09, 2024@11:31:58 ENTRY DATE: APR 09, 2024@11:31:59 AUTHOR: LEONOR BLEVINS COSIGNER: URGENCY: STATUS: COMPLETED Spoke with [place]'s spouse. He currently resides in [place]. His right forearm (skin tear) continues to need dressing changes/care. There is no specified regimen. Will need Wound Clinic Consult placed. Will addend PCP for awareness. /jeffry/ LEONOR BLEVINS MASTIC MAN Signed: 04/09/2024 11:33 Receipt Acknowledged By: 04/12/2024 09:21 /jeffry/ Ced Epstein D.O. Staff Physician --- Original Document --- 04/05/24 CO-MANAGED CARE NOTE: Received requests for: 1. Meclizine 12.5 daily and 12.5mg daily prn - scanned records do not mention this medication but do state suddenly will feel dizzy/lightheaded and vomit. This information is on page 2 of the scanned record. 2. [place] home health care referral for wound care to eval and treat laceration of right forearm. 3. Ondansetron 4mg every 6 hours as needed for nausea/vomiting Records scanned and available for review. [facility] phone #: [phone] [facility] fax #: [phone] Rx written by: Wilda Bey NP Name of facility: [facility] appt with a [facility]: 10/21/23 Please alert me if requests aren't approved or additional information is needed. If requests are denied let me know what alternatives would be approved so I can communicate that information back to the local provider. /jeffry/ [place] Burgos LPN [employer] Signed: 04/05/2024 10:21 Receipt Acknowledged By: 04/09/2024 08:41 /jeffry/ Ced Epstein D.O. Staff Physician 04/09/2024 ADDENDUM STATUS: COMPLETED Regarding above co-managed care request for home health - home health orders for wound care are not accepted unless there are specific directions. Please find out from pt if 1) does he still need help with skin tear on forearm? 2) if so, has he already been given a wound care regimen regarding cleaning/dressing changes? 3) if so, please enter home health skilled consult with those regimen directions. 4) if he hasn't already been given a regimen, he will need to see wound care here at [place]. Thanks /jeffry/ Ced Epstein D.O. Staff Physician Signed: 04/09/2024 08:43 Receipt Acknowledged By: 04/09/2024 11:24 /jeffry/ LEONOR BLEVINS RN BSN for JACQUI DE LA GARZA 04/12/2024 ADDENDUM STATUS: COMPLETED Wound care consult placed for skin tear of right forearm as described in outside provider note in [facility]. /jeffry/ Ced Epstein D.O. Staff Physician Signed: 04/12/2024 09:21 LEONOR BLEVINS [facility] Apr 09, 2024 08:42 AM ADDENDUM: LOCAL TITLE: Addendum STANDARD TITLE: ADDENDUM DATE OF NOTE: APR 09, 2024@08:42:06 ENTRY DATE: APR 09, 2024@08:42:06 AUTHOR: CED EPSTEIN EXP COSIGNER: URGENCY: STATUS: COMPLETED Regarding above co-managed care request for home health - home health orders for wound care are not accepted unless there are specific directions. Please find out from pt if 1) does he still need help with skin tear on forearm? 2) if so, has he already been given a wound care regimen regarding cleaning/dressing changes? 3) if so, please enter home health skilled consult with those regimen directions. 4) if he hasn't already been given a regimen, he will need to see wound care here at [place]. Thanks /jeffry/ Ced Epstein D.O. Staff Physician Signed: 04/09/2024 08:43 Receipt Acknowledged By: 04/09/2024 11:24 /jeffry/ LEONOR BLEVINS RN BSN for JACQUI DE LA GARZA --- Original Document --- 04/05/24 CO-MANAGED CARE NOTE: Received requests for: 1. Meclizine 12.5 daily and 12.5mg daily prn - scanned records do not mention this medication but do state suddenly will feel dizzy/lightheaded and vomit. This information is on page 2 of the scanned record. 2. [place] home health care referral for wound care to eval and treat laceration of right forearm. 3. Ondansetron 4mg every 6 hours as needed for nausea/vomiting Records scanned and available for review. Local clinic phone #: [phone] [facility] fax #: [phone] Rx written by: Wilda Bey NP Name of facility: [facility] Last appt with a [place] PCP: 10/21/23 Please alert me if requests aren't approved or additional information is needed. If requests are denied let me know what alternatives would be approved so I can communicate that information back to the local provider. /jefrfy/ [place] Burgos LPN [employer] Signed: 04/05/2024 10:21 Receipt Acknowledged By: 04/09/2024 08:41 /jeffry/ Ced Epstein D.O. Staff Physician CED EPSTEIN [facility] Apr 05, 2024 10:14 AM PRIMARY CARE NONVA NOTE: LOCAL TITLE: CO-MANAGED CARE NOTE STANDARD TITLE: PRIMARY CARE NONVA NOTE DATE OF NOTE: APR 05, 2024@10:14 ENTRY DATE: APR 05, 2024@10:14:12 AUTHOR: RANCHO BURGOS EXP COSIGNER: URGENCY: STATUS: COMPLETED CO-MANAGED CARE NOTE Has ADDENDA Received requests for: 1. Meclizine 12.5 daily and 12.5mg daily prn - scanned records do not mention this medication but do state suddenly will feel dizzy/lightheaded and vomit. This information is on page 2 of the scanned record. 2. [place] home health care referral for wound care to eval and treat laceration of right forearm. 3. Ondansetron 4mg every 6 hours as needed for nausea/vomiting Records scanned and available for review. [facility] phone #: [phone] [facility] fax #: [phone] Rx written by: Wilda Bey NP Name of facility: [facility] Last appt with a [place] PCP: 10/21/23 Please alert me if requests aren't approved or additional information is needed. If requests are denied let me know what alternatives would be approved so I can communicate that information back to the local provider. /zhanna Burgos LPN [employer] Signed: 04/05/2024 10:21 Receipt Acknowledged By: 04/09/2024 08:41 /zhanna Epstein D.O. Staff Physician 04/09/2024 ADDENDUM STATUS: COMPLETED Regarding above co-managed care request for home health - home health orders for wound care are not accepted unless there are specific directions. Please find out from pt if 1) does he still need help with skin tear on forearm? 2) if so, has he already been given a wound care regimen regarding cleaning/dressing changes? 3) if so, please enter home health skilled consult with those regimen directions. 4) if he hasn't already been given a regimen, he will need to see wound care here at [place]. Thanks /jeffry/ Ced Epstein D.O. Staff Physician Signed: 04/09/2024 08:43 Receipt Acknowledged By: 04/09/2024 11:24 /jeffry/ LEONOR BLEVINS RN BSN for JACQUI F HOLLI 04/09/2024 ADDENDUM STATUS: COMPLETED Spoke with 's spouse. He currently resides in [place]. His right forearm (skin tear) continues to need dressing changes/care. There is no specified regimen. Will need Wound Clinic Consult placed. Will addend PCP for awareness. /jeffry/ LEONOR BLEVINS RN BSN Signed: 04/09/2024 11:33 Receipt Acknowledged By: 04/12/2024 09:21 /jeffry/ Ced Epstein D.O. Staff Physician 04/12/2024 ADDENDUM STATUS: COMPLETED Wound care consult placed for skin tear of right forearm as described in outside provider note in [facility]. /jeffry/ Ced Epstein D.O. Staff Physician Signed: 04/12/2024 09:21 04/12/2024 ADDENDUM STATUS: COMPLETED received VM from Physicians regarding pt rt forearm laceration per notes in [facility] Abrasion of rt forearm 7x2.8 cm skin tear, wound cleanser, nonadherent gauze placed, nursing to follow and change dressing spoke w December at physicians to alert her that commercial lines underwriter LVM for [facility] to skin tear and commercial lines underwriter provided direct # if wound care supplies are needed. noted PCP entered W[facility] consult, still pending. /jeffry/ JACQUI DE LA GARZA, RN REGISTERED NURSE Signed: 04/12/2024 10:44 RANCHO BURGOS [facility]
--- OUTSIDE RECORDS SUMMARY | 2024-06-02 00:49 | XMS_ITS | Encounter Summary ---
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 [place] [facility] Address [address] [place] [address] Care Team Providers Care Lieutenant Fire Fighter Name Role Phone CED EPSTEIN Primary Care [...] Patient's Relationship to Policy Mar [facility] (WNR) MEDICARE [facility] ([facility]) Sep 29, 2019 [id number] ONI DURAN MON PATIENT [facility] [place] [facility] (WNR) MEDICARE (M) [facility] (R) Sep 29, 2008 [id number] RENEE,SI MON PATIENT [facility] [place] [facility] (WNR) MEDICARE ADVANTAGE [facility] (R) Sep 29, 2008 [id number] [phone] [id number] ONI DURAN MON PATIENT [facility] (WNR) MEDICARE [facility] ([facility]) Sep 29, 2019 [id number] ONI DURAN PATIENT [facility] MCR (WNR) MEDICARE ADVANTAGE MCR (WNR) Sep 29, 2010 [id number] ONI DURAN PATIENT Selected Encounter This section includes the information on record at [place] for the Encounter. Date/Time Encounter Type Encounter Description Reason Provider Source May 11, 2024 12:42 PM EMERGENCY DEPT VISIT MOD [facility] EMERGENCY DEPT ICD-10-CM N39.0 Urinary tract infection, site not specified SAMMIE GONZALEZ Fidencio Encounter Template Text not used by [place] Assessments - Encounter Diagnoses This section includes the primary and secondary diagnoses documented for the Encounter. Date/Time Primary/Secondary Diagnosis Diagnosis Name Provider Source May 11, 2024 05:24 PM PRIMARY Urinary tract infection, site not specified SAMMIE GONZALEZ [facility] Plan of Treatment: Future Appointments (+ 6 months) and Future Tests (+/- 45 days) The Plan of Treatment section includes future care activities for the patient from [facility] [place] [facility] This section includes future appointments and future orders which are active, pending or scheduled. Future Appointments This section includes appointments that were scheduled to occur 6 months from the date of the Encounter, up to a maximum of 20 appointments. The data comes from all [facility]. Appointment Date/Time Appointment Type Appointme nt Facility Name May 14, 2024 04:50 PM AMBULATORY - NONE [facility] Sep 08, 2024 01:15 PM AMBULATORY - MEDICINE [facility] Sep 08, 2024 01:30 PM AMBULATORY - MEDICINE [facility] Sep 08, 2024 02:30 PM AMBULATORY - MEDICINE [facility] Active, Pending, and Scheduled Orders This section includes a listing of several types of active, pending, and scheduled orders, including clinic medications orders, diagnostic test orders, procedure orders and consult orders; where the start date of the order is 45 days before the date of the Encounter or 45 days after the date of theEncounter. The data comes from all [facility]. Test Date/Time Test Type Test Details Facility Name Apr 05, 2024 12:00 AM Laboratory - Chemistry Order AST/SGOT PLASMA SP [facility] Apr 05, 2024 12:00 AM Laboratory - Chemistry Order ALT/SGPT PLASMA SP [facility] Apr 05, 2024 12:00 AM Laboratory - Chemistry Order CBC BLOOD SP ONCE [facility] Apr 05, 2024 12:00 AM Laboratory - Chemistry Order BASIC METABOLIC PANEL+MG PLASMA SP [facility] May 11, 2024 04:49 PM Laboratory - Microbiology Order CULTURE & SUSCEPTIBILITY URINE WC ONCE [facility] May 13, 2024 12:00 AM Laboratory - Chemistry Order LIPID PANEL,NON-FASTING PLASMA SP ONCE [facility] May 13, 2024 12:00 AM Laboratory - Chemistry Order BASIC METABOLIC PANEL+MG PLASMA SP ONCE [facility] May 13, 2024 12:00 AM Laboratory - Chemistry Order ALBUMIN/CREATININE RATIO URINE URINE WC ONCE [facility] Lab Results: +/- 30 days of the encounter This section includes the Chemistry and Hematology Lab Results on record with [place] for the patient. Radiology Reports and Pathology Reports are provided separately, in subsequent sections. Lab Results This section contains the Chemistry/Hematology Results that were resulted 30 days before or 30 daysafter the date of the Encounter. Date/Time Source Result Type Result - Unit Interpretation Reference Range Comment May 11, 2024 02:05 PM [facility] URINALYSIS Specimen Type: URINE No comment entered. Ordering Provider: KELLIE GONZALEZ Report Released Date/Time: May 11, 2024 12:58 PM Reporting Lab: [facility] [id number] Performing Lab: [facility] [id number] URINE COLOR COLORLESS SPECIFIC GRAVITY 1.010 1.003-1.035 [...] 250 NEGATIVE May 11, 2024 01:00 PM [facility] EXTRA PURPLE TUBE Specimen Type: BLOOD No comment entered. Ordering Provider: KELLIE GONZALEZ Report Released Date/Time: May 11, 2024 01:11 PM Reporting Lab: [facility] [id number] Performing Lab: [facility] [phone] EXTRA PURPLE TUBE RECEIVED May 11, 2024 01:00 PM [facility] EXTRA BLUE TUBE Specimen Type: PLASMA No comment entered. Ordering Provider: KELLIE GONZALEZ Report Released Date/Time: May 11, 2024 01:11 PM Reporting Lab: [facility] [id number] Performing Lab: [facility] [address] EXTRA BLUE TUBE RECEIVED May 11, 2024 01:00 PM [facility] EXTRA GOLD GEL TUBE Specimen Type: SERUM No comment entered. Ordering Provider: KELLIE GONZALEZ Report Released Date/Time: May 11, 2024 01:11 PM Reporting Lab: [facility] [id number] Performing Lab: [facility] [address] EXTRA GOLD GEL TUBE RECEIVED May 11, 2024 01:00 PM [facility] PHOSPHORUS Specimen Type: PLASMA No comment entered. Ordering Provider: KELLIE GONZALEZ Report Released Date/Time: May 11, 2024 12:58 PM Reporting Lab: [facility] [phone] Performing Lab: [facility] [address] PHOSPHORUS 3.6 mg/dL 2.3-4.3 May 11, 2024 01:00 PM [facility] BASIC METABOLIC PANEL+MG Specimen Type: PLASMA No comment entered. Ordering Provider: KELLIE GONZALEZ Report Released Date/Time: May 11, 2024 12:58 PM Reporting Lab: [facility] [id number] Performing Lab: [facility] [address] CREATININE 1.3 mg/dL H 0.7-1.2 UREA NITROGEN [...] Pain Height Weight Body Mass Index Source May 11, 2024 01:04 PM 98.3 69 164/76 16 100 0 SHOAP PADDY [facility] Social History: Smoking Status (Most current) and Tobacco Use (All prior to encounter date) This section includes the most current, and the historical, smoking and tobacco- related health factors from the [place] facility where the Encounter took place. Current Smoking Status This section includes the most current smoking, or tobacco-related health factor, from the [place] facility where the Encounter took place. Date/Time Current Smoking Status Comment Facil ity Sep 10, 2023 03:30 PM VA-TOBACCO FORMER USER [facility] Tobacco Use History This section includes a history of the smoking, or tobacco-related health factors, that were collected on or before the date of the Encounter. The data comes from the [place] facility where the Encounter took place. Date/Time Smoking Status/Tobacco Use Comment F acility Sep 10, 2023 03:30 PM VA-TOBACCO QUIT 15 YRS OR MORE [facility] Jun 13, 2020 10:00 AM VA-TOBACCO FORMER USER [facility] Jun 13, 2020 10:00 AM VA-TOBACCO QUIT 15 YRS OR MORE [facility] May 20, 2019 12:18 PM VA-TOBACCO FORMER USER [facility] May 20, 2019 12:18 PM VA-TOBACCO QUIT 15 YRS OR MORE [facility] Jul 30, 2018 08:31 AM VA-TOBACCO FORMER USER [facility] Jul 30, 2018 08:31 AM VA-TOBACCO QUIT 15 YRS OR MORE [facility] Aug 25, 2017 08:04 AM FORMER TOBACCO USER 7Y OR GREATE R [facility] Nov 08, 2016 08:12 AM FORMER TOBACCO USER 7Y OR GREATE R [facility] Nov 29, 2015 12:46 PM FORMER TOBACCO USER 7Y OR GREATE R [facility] February 23, 2015 12:57 PM FORMER TOBACCO USER 7Y OR GREATE R [facility] January 27, 2014 10:10 AM FORMER TOBACCO USER 7Y OR GREATE R [facility] Mar 17, 2007 09:11 AM FORMER TOBACCO USER 7Y OR GREATE R [facility] Advance Directives: All historical and current Section Date Range: From patient's date of to the date document was created. This section includes ALL of a patient's completed or amended [place] Advance and Rescinded Directives. The entries below indicate that a directive exists for the patient, but an actual copy is not included with this document. The data comes from all [place] facilities. Date Advance Directives Provider Source Mar 17, 2007 ADVANCE DIRECTIVE ALBERTO RODRIGUEZ [facility] Encounter Notes: All associated encounter notes This section contains the clinical notes associated to the Encounter. Date/Time Encounter Note(s) Provider Source May 11, 2024 05:00 PM NURSING EMERGENCY DEPT NOTE: LOCAL TITLE: EMERGENCY DEPT NURSING NOTE STANDARD TITLE: NURSING EMERGENCY DEPT NOTE DATE OF NOTE: MAY 11, 2024@17:00 ENTRY DATE: MAY 11, 2024@17:52:57 AUTHOR: PERRY MCDOWELL EXP COSIGNER: URGENCY: STATUS: COMPLETED Emergency Department Discharge Education Personal Protective Equipment (PPE): Patient was in mask on arrival, patient remained masked for entire visit, RN used PPE during every encounter with the patient, MD/PA/CONVENTIONAL MACHINIST used PPE during every encounter with the patient The patient was given education on the following: UTI EDUCATION/TEACH BACK: [facility] discharge instructions have been reviewed with Patient, Family AND had an opportunity to ask questions, has verbalized understanding, have received a copy of the [facility] instructions EDUCATIONAL LEVEL OF UNDERSTANDING: Patient, Family was ready and receptive to education. BARRIERS TO LEARNING: No barriers identified Accompanied by: Self, Family Mode of Transportation: Ambulance EXIT ADDITIONAL EDUCATION GIVE: Pt's DC meds and DC papers were given to pt's Azra who will bring it to pt's care facility. Wristband Removal:Patient wristband was removed and destroyed by being placed in the shred bin. Discharged to: Home /jeffry/ PERRY MCDOWELL DIRECTOR NICU REGISTERED NURSE Signed: 05/11/2024 17:54 PERRY MCDOWELL [facility] May 11, 2024 03:35 PM EMERGENCY DEPT EDU CATION NOTE: LOCAL TITLE: EMERGENCY DEPT DISCHARGE INSTRUCTIONS STANDARD TITLE: EMERGENCY DEPT EDUCATION NOTE DATE OF NOTE: MAY 11, 2024@15:35:42 ENTRY DATE: MAY 11, 2024@15:35:42 AUTHOR: LUIS GONZALEZ EXP COSIGNER: URGENCY: STATUS: COMPLETED DISCHARGE INSTRUCTIONS IMPORTANT: We examined and treated you today on an emergency basis only. This was not a substitute for, or an effort to provide, comprehensive medical care. In most cases, you must let your healthcare provider check you again. Tell your healthcare provider about any new or lasting problems. We cannot recognize and treat all injuries or illnesses in one Emergency Department visit. After you leave, you should follow the instructions below. You were treated today by Luis Gonzalez, . - Special Information - Follow-up with your primary clinic within 1 week to get referred to follow-up with physical medicine and rehabilitation for further evaluation and treatment of right leg spasticity. Begin taking baclofen as directed for spasticity. Begin taking cefdinir, as directed, this is for urinary tract infection. Return to the emergency department for any problems. - This Information Is About Your Follow Up Care - We recommend that you follow up with your Primary Care Team to have an appointment within the next 1 week. Call to arrange this appointment. If you are not feeling better and improving as discussed or if you have any questions please contact your Primary Care Provider. Future Appointments 08/11/2024 at 1:45pm [facility] 08/11/2024 at 2:00pm [facility] EKG 08/11/2024 at 2:30pm [facility]ARDI[facility] GITA NICHOLS 79 - This Information Is About Your Illness and Diagnosis - URINARY TRACT INFECTION (Bladder infection) There is an infection in your urine. This infection was caused by bacteria getting into the bladder through your urethra (the tube you urinate through). With treatment, you can expect to be better in 2 to 3 days. If a urine culture was taken, the result will be back in 1 to 2 days. It will show which bacteria caused your infection and which antibiotic will fight the bacteria. Please follow these instructions: -Drink extra liquids to help wash out the infection (at least 8 large glasses of water or juice each day unless your healthcare provider has limited your fluids). -Keep your genital area clean. Use plain soap and rinse well. -Women should wipe from front to back after passing stool or urine. -Take showers instead of tub baths. -See your healthcare provider to recheck your urine after you finish the medicine to make sure the infection is gone. Contact your healthcare provider as soon as possible if you have any of the following: -you have increased pain or trouble passing your urine. -you have a fever. -you are not better in 2 to 3 days. -your symptoms return after you finish the medicine. -you have any new problems or concerns. - IMPORTANT MEDICATION INFORMATION -Your medication list includes any medications that were recently prescribed but not filled by the Pharmacy (PENDING Medicines). -Included are any known ACTIVE Medicines. Please review this list to make sure it is accurate, if this list does not match the current medications you are taking please follow-up with your Primary Care Team to have your Medication List reviewed. Pending Medications [none] Active Medications ACCU-CHEK GUIDE (GLUCOSE) TEST STRIP (Active/Suspended) USE 1 STRIP FOUR TIMES A DAY TO CHECK BLOOD SUGAR--USE WITHIN 3 MINUTES OF REMOVING FROM CONTAINER ACETAMINOPHEN 500MG TAB TAKE TWO TABLETS BY MOUTH THREE TIMES A DAY NEEDED FOR PAIN APIXABAN 5MG TAB TAKE ONE TABLET BY MOUTH EVERY 12 HOURS TO PREVENT STROKES ATORVASTATIN CALCIUM 80MG TAB (Active/Suspended) TAKE ONE TABLET BY MOUTH AT BEDTIME FOR CHOLESTEROL BACLOFEN 5MG TAB TAKE ONE TABLET BY MOUTH THREE TIMES A DAY FOR MUSCLE SPASMS BANDAGE TUBULAR ELASTIC NET SZ 5 X 25YD USE DRESSING RETAINER TOPICALLY DIRECTED FOR WOUND CARE (DRESSING SECUREMENT) BUPROPION HCL 150MG 24HR SA TAB (Active/Suspended) TAKE ONE TABLET BY MOUTH EVERY DAY FOR DEPRESSION CEFDINIR 300MG CAP TAKE ONE CAPSULE BY MOUTH TWICE A DAY FOR UTI CHOLECALCIF 25MCG (D3-1,000UNIT) TAB TAKE ONE TABLET BY MOUTH EVERY DAY FOR VITAMIN D SUPPLEMENT CLEANSER,WOUND SKINTEGRITY TOP SPRAY SPRAY TO AFFECTED AREA TOPICALLY DIRECTED FOR WOUND CARE DEPEND UNDERWEAR,MAXIMUM,MEN LARGE (Active/Suspended) USE 1 BRIEF THREE TIMES A DAY NEEDED FOR URINARY INCONTINENCE DRESS,HYDROGEL SPAND-GEL [id number] #[id number] APPLY 1 DRESSING TOPICALLY DIRECTED FOR WOUND CARE DRESS,MEPILEX BORDER FLEX 4X4IN #[id number] APPLY 1 DRESSING TOPICALLY EVERY DAY FOR LEFT UPPER THIGH WOUND EMPAGLIFLOZIN 25MG TAB (Active/Suspended) TAKE ONE TABLET BY MOUTH EVERY DAY FOR DIABETES ESCITALOPRAM OXALATE 10MG TAB (Active/Suspended) TAKE ONE TABLET BY MOUTH EVERY DAY FOR MOOD GAUZE PAD 4IN X 4IN 12-PLY STERILE USE GAUZE SPONGE GAUZE PAD 4IN X 4IN 12-PLY STERILE TOPICALLY DIRECTED FOR WOUND CARE INSULIN,ASPART(EQV-NOVLG)1 00UN/ML FLXPEN (Active/Suspended) INJECT DIRECTED UNDER THE SKIN THREE TIMES [...] INSULIN,GLARGINE-YFGN 100UNIT/ML PEN 3ML INJECT 25 UNITS UNDER THE SKIN AT BEDTIME FOR DIABETES KERLIX 4.5IN STERILE USE 1 BANDAGE TOPICALLY DIRECTED KETOCONAZOLE 2% SHAMPOO SHAMPOO SCALP TOPICALLY 3 TIMES WEEKLY *LATHER FOR 5 MINUTES THEN RINSE* LEVOTHYROXINE NA (SYNTHROID) 100MCG TAB (Active/Suspended) TAKE ONE TABLET BY MOUTH EVERY DAY FOR THYROID LIDOCAINE 5% PATCH APPLY 1 PATCH TOPICALLY EVERY DAY NEEDED FOR UP TO 12 HOURS FOR PAIN REMOVE AFTER 12 HOURS. MAX 1 PATCH PER 24 HOURS. LOPERAMIDE HCL 2MG CAP TAKE ONE CAPSULE BY MOUTH EVERY 6 HOURS NEEDED FOR DIARRHEA DIRECTED: 2 CAPSULES (4MG) AFTER 1ST LOOSE STOOL, THEN 1 CAPSULE AFTER SUBSEQUENT LOOSE STOOL IF NEEDED. MAX 8 CAPS (16MG/DAY). LOSARTAN 25MG TAB (Active/Suspended) TAKE ONE TABLET BY MOUTH EVERY DAY FOR BLOOD PRESSURE MECLIZINE HCL 25MG CHEW TAB CHEW ONE-HALF TABLET BY MOUTH EVERY DAY AND CHEW ONE-HALF TABLET EVERY DAY NEEDED FOR DIZZINESS MELATONIN 3MG CAP/TAB TAKE 2 TABLETS BY MOUTH AT BEDTIME FOR SLEEP NEEDLE,PEN 31G,8MM USE 1 NEEDLE UNDER THE SKIN DIRECTED *DISPOSE OF IN A HARD-PLASTIC CONTAINER WITH A SCREW-ON LID CONTACT GARBAGE HAULER FOR PROPER DISPOSAL OMEPRAZOLE 40MG EC CAP (Active/Suspended) TAKE ONE CAPSULE BY MOUTH EVERY DAY FOR STOMACH ACID DOSE INCREASE ONDANSETRON 4MG ORAL DISINTEGRATING TAB DISSOLVE ONE TABLET BY UNDER THE TONGUE EVERY 6 HOURS NEEDED FOR NAUSEA AND VOMITING PAD,ABDOMINAL 7.5 X 8 STERILE (HOLD) USE PAD TOPICALLY DIRECTED POISE PAD,ULTIMATE ABSORB EXTRA COVERAGE (Active/Suspended) USE PAD TOPICALLY THREE TIMES A DAY NEEDED FOR URINARY INCONTINENCE SEMAGLUTIDE 1MG/0.75ML INJ PEN 3ML INJECT 1MG UNDER THE SKIN EVERY WEEK FOR DIABETES SENNOSIDES 8.6MG TAB TAKE TWO TABLETS BY MOUTH EVERY DAY NEEDED FOR CONSTIPATION SODIUM FLUORIDE 1.1% TOOTHPASTE BRUSH TEETH WITH A SMALL AMOUNT MOUTH EVERY MORNING AND AT BEDTIME TO PREVENT DENTAL CAVITIES TAPE,MEDIPORE H SOFT 4IN X 10YD 3M#[id number] CUT AND APPLY TAPE TOPICALLY DIRECTED TORSEMIDE 10MG TAB (Active/Suspended) TAKE ONE TABLET BY MOUTH EVERY DAY FOR EXCESS FLUID ZINC OXIDE 20% OINT APPLY SMALL AMOUNT TOPICALLY THREE TIMES A DAY NEEDED FOR SKIN PROTECTION APPLY A THIN LAYER TO AFFECTED PERINEAL AREAS TOPICALLY 2-3 TIMES DAILY NEEDED. MAY DAB AND REAPPLY. DO NOT WIPE COMPLETELY OFF SKIN FOR EACH APPLICATION. Medications Medications in the last 90 days ALBUTEROL 90MCG (CFC-F) 200D ORAL INHL INHALE 2 PUFFS BY INHALATION EVERY 6 HOURS NEEDED FOR SHORTNESS OF BREATH ARTIFICIAL TEARS POLYVINYL ALCOHOL INSTILL 2 DROPS IN LEFT EYE EVERY 2 HOURS NEEDED FOR DRY EYES BISACODYL 10MG RTL SUPP INSERT 1 SUPPOSITORY IN RECTUM EVERY DAY NEEDED FOR CONSTIPATION CIPROFLOXACIN HCL 500MG TAB TAKE ONE TABLET BY MOUTH TWICE A DAY FOR WOUND INFECTION OF RIGHT EAR LACTOBACILLUS ACIDOPHILUS TAB TAKE 2 TABLETS BY MOUTH EVERY DAY PROBIOTIC LANCET,SOFTCLIX USE 1 LANCET FOUR TIMES A DAY *DISPOSE OF IN A HARD-PLASTIC CONTAINER WITH A SCREW-ON LIDCONTACT GARBAGE [facility] FOR PROPER DISPOSAL LIDOCAINE 4% TOP CREAM APPLY MODERATE AMOUNT TOPICALLY EVERY 6 HOURS NEEDED FOR PAIN POLYETHYLENE GLYCOL 3350 ORAL PWDR TAKE 17 GRAMS BY MOUTH EVERY DAY NEEDED FOR CONSTIPATION MIX IN 8 OUNCES OF LIQUID TRAZODONE HCL 50MG TAB TAKE ONE TABLET BY MOUTH AT BEDTIME FOR SLEEP YOU ARE THE MOST IMPORTANT FACTOR IN YOUR RECOVERY. Follow the above instructions carefully. Take your medicines as prescribed. If you do not understand any of your medicines, please ask questions. If you have any outstanding tests from the emergency department, please contact your provider to review them in the next 3-5 days. If you have new symptoms, feel worse, or are not getting better as discussed, call to discuss your health questions and arrange for follow-up care, or return to the Emergency Room IF YOU ARE EXPERIENCING A MEDICAL EMERGENCY CALL 911 OR GO TO THE NEAREST EMERGENCY ROOM // LUIS GONZALEZ FEE BASIS PHYSICIAN Signed: 05/11/2024 15:35 CARLOSLUIS GOMEZLEY [facility] May 11, 2024 01:36 PM NURSING NOTE: LOCAL TITLE: VAAES NSG IV INSERTION AND MAINTENANCE STANDARD TITLE: NURSING NOTE DATE OF NOTE: MAY 11, 2024@13:36 ENTRY DATE: MAY 11, 2024@13:36:43 AUTHOR: PERRY MCDOWELL EXP COSIGNER: URGENCY: STATUS: COMPLETED VAAES NSG IV INSERTION AND MAINTENANCE Has ADDENDA Version 2.2 Charting in accordance with [place] APPROVED [place] STANDARD (NJAES) ACUTE INPATIENT/REHABILITATION NURSING ADMISSION SCREENING, ASSESSMENT, AND STANDARDS OF CARE IV Line Insertion and Maintenance Peripheral IV Line #1: Insertion: Date/Time: Apr@13:00 Inserted by (name): Monserrat Mcdowell RN Location: Left, Antecubital Gauge: 20 Assessment: Location: Left, Antecubital Gauge: 20 Dressing Condition: Clean, dry, intact Transparent dressing Site Condition: No redness, swelling, pain Line Status: Patent/infusing Capped Flushed Needleless connector(s) replaced Positive blood return /jeffry/ PERRY MCDOWELL RN BSN REGISTERED NURSE Signed: 05/11/2024 13:37 05/11/2024 ADDENDUM STATUS: COMPLETED PIV removed, catheter tip intact, dressing applied. /jeffry/ PERRY MCDOWELL RN BSN REGISTERED NURSE Signed: 05/11/2024 17:52 PERRY MCDOWELL [facility] May 11, 2024 01:28 PM NURSING EMERGENCY DEPT NOTE: LOCAL TITLE: EMERGENCY DEPT NURSING NOTE STANDARD TITLE: NURSING EMERGENCY DEPT NOTE DATE OF NOTE: MAY 11, 2024@13:28 ENTRY DATE: MAY 11, 2024@13:28:57 AUTHOR: PERRY MCDOWELL EXP COSIGNER: URGENCY: STATUS: COMPLETED EMERGENCY DEPT NURSING NOTE Has ADDENDA Nursing Focused Assessment: CHIEF COMPLAINT: Pt c/o R knee locking up for the past 1-2 months and 3-4 days of urinary retention. Hx of CVA with R sided deficits. Is WC bound. Allergies/ADR: PENICILLIN (Mar 17, 2007) SULFA DRUGS (Mar 17, 2007) DOXYCYCLINE (Jul 11, 2010) LISINOPRIL (Jul 22, 2011) AMLODIPINE (Nov 19, 2017) Additional allergies not listed: Vital Signs * Blood Pressure: 164/76 (05/11/2024 13:04) Heart Rate: 69 (05/11/2024 13:04) Respirations: 16 (05/11/2024 13:04) Temperature: 98.3 F [36.8 C] (05/11/2024 13:04) Pain: 0 (05/11/2024 13:04) Weight: 184.7 lb [83.78 kg] (04/28/2024 14:32) O2 Sats: 100% (05/11/2024 13:04) Tobacco use: No Alcohol use: No Any drugs besides what is prescribed or over the counter: No ABUSE/NEGLECT: No evidence of abuse/neglect REVIEW OF SYSTEM-FOCUSED ASSESSMENT Neurological: Alert Lu Coma Scale: Date and Time Preformed: Apr@13:30 Best Motor Response: Obeys simple commands - 6 Best Verbal Response: Oriented - 5 Eye Opening: Spontaneous - 4 Total: 15 Respiratory: Quality of breath: Equal and unlabored chest rise and fall Genitourinary: History of retention issues Bladder scan results: 377 mL Additional comments/issues/interventi ons: New retention per pt Musculoskeletal: Right Lower Extremity: Specific location of complaint: R knee Range of motion: restricted: muscle spasms Sensation: Able to differentiate between dull and sharp sensations Color: Normal for ethnicity Temperature: Within Normal Limits Capillary refill time: brisk, <2 seconds Dorsalis Pedis: found with use of Doppler Posterior Tibial: found with use of Doppler INTERVENTIONS: Patient changed into gown: Warm blanket Oriented to room and bed controls Call light within reach of patient or family/friend Bed in low position and locked /ALLEY CuevasN REGISTERED NURSE Signed: 05/11/2024 13:36 05/11/2024 ADDENDUM STATUS: COMPLETED Pt's at bedside. Updated on plan of care. Urine obtained and sent. /ALLEY CuevasN REGISTERED NURSE Signed: 05/11/2024 14:08 05/11/2024 ADDENDUM STATUS: COMPLETED After pt voided for UA, PVR was 388 mL. ED MD made aware. Pt refusing Khan catheter. Pt is being discharged home. Pt's picked up pt's two DC Rx and will bring the them to pt's care facility [facility]. Body Stylist gave report to JOLENE Dejesus [phone]. BLS transport ETA around 1700- pt and his updated. /ALLEY CuevasN REGISTERED NURSE Signed: 05/11/2024 15:55 05/11/2024 ADDENDUM STATUS: COMPLETED Prior to discharge, pt cleaned and new depends place. Coccyx mepilex placed prior to discharge. /ALLEY CuevasN REGISTERED NURSE Signed: 05/11/2024 17:54 PERRY MCDOWELL [facility] May 11, 2024 01:04 PM NURSING EMERGENCY DEPT TRIAGE NOTE: LOCAL TITLE: EMERGENCY DEPARTMENT NURSING TRIAGE NOTE STANDARD TITLE: NURSING EMERGENCY DEPT TRIAGE NOTE DATE OF NOTE: MAY 11, 2024@13:04 ENTRY DATE: MAY 11, 2024@13:04:59 AUTHOR: PERRY MCDOWELL EXP COSIGNER: URGENCY: STATUS: COMPLETED Emergency Department/Urgent Care Center Triage Patient age:78 Sex: MALE On arrival patient was: NAYELI , AMBULANCE Patient phone number: [phone] Allergies: PENICILLIN (Mar 17, 2007) SULFA DRUGS (Mar 17, 2007) DOXYCYCLINE (Jul 11, 2010) LISINOPRIL (Jul 22, 2011) AMLODIPINE (Nov 19, 2017) Subjective/Chief Complaint: R knee locking up and urinary retention Objective: Pt arrives via [facility] from his care facility. Hx of CVA with R sided deficits and R sided vision loss. Pt reported to have R knee locking up x1-2 months, this morning was not able to bend the R knee with 3 staff. Also reports urinary retention x3-4 days. PVR 377 mL. FSG 112.Pt denies CP/SOB or vision changes. The patient is a fall risk. Intervention: low bed, brakes on bed, call light within reach Vital Signs * Blood Pressure: 164/76 (05/11/2024 13:04) Heart Rate: 69 (05/11/2024 13:04) Respirations: 16 (05/11/2024 13:04) Temperature: 98.3 F [36.8 C] (05/11/2024 13:04) Pain: 0 (05/11/2024 13:04) Weight: 184.7 lb [83.78 kg] (04/28/2024 14:32) O2 Sats: 100% (05/11/2024 13:04) Emergency Severity Index (BREANNA) level Level 3 Current Medications: Active Outpatient Medications (including Supplies): Active Outpatient [...] NEEDED FOR URINARY INCONTINENCE 10) DRESS,HYDROGEL SPAND-GEL [id number] #[id number] APPLY 1 ACTIVE DRESSING TOPICALLY DIRECTED FOR WOUND CARE 11) DRESS,MEPILEX BORDER FLEX 4X4IN #[id number] APPLY 1 ACTIVE DRESSING TOPICALLY EVERY DAY [...] STERILE TOPICALLY DIRECTED FOR WOUND CARE 15) INSULIN,ASPART(EQV-NOVLG)1 00UN/ML FLXPEN INJECT ACTIVE (S) DIRECTED UNDER THE [...] CONTAINER WITH A SCREW-ON LID CONTACT GARBAGE [facility] FOR PROPER DISPOSAL 26) OMEPRAZOLE 40MG EC CAP TAKE ONE CAPSULE BY MOUTH ACTIVE (S) EVERY DAY FOR STOMACH ACID DOSE INCREASE [...] 33) TAPE,MEDIPORE H SOFT 4IN X 10YD 3M#7621 CUT AND APPLY ACTIVE TAPE TOPICALLY DIRECTED [...] WIPE COMPLETELY OFF SKIN FOR EACH APPLICATION. 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 (ICD-9-CM 600.00) Asthma ([facility] 327912416) Diabetic retinopathy ([facility] 9205723) Type 2 diabetes mellitus ([facility] 36824576) Umbilical hernia ([facility] 368813844) Obstructive sleep apnea ([facility] 79313929) Obesity (ICD-9-CM 278.00) Anemia ([facility] 409245806) Rosacea ([facility] 599882506) Carcinoma of bladder ([facility] 726058790) Depression ([facility] 63160232) Congestive heart failure ([facility] 64919876) CVA - Cerebrovascular accident ([facility] 211167653) Dysphagia as a late effect of cerebrovasLong-term current use of anticoagulant ([facility] 532398518) Exposure to Agent Floyd ([facility] 031755767)Paroxysmal atrial fibrillation ([facility] 357522513) Exposure to potentially hazardous substaChronic kidney disease stage 3A ([facility] 993333181) Identification of Seniors at Risk (ISAR):* Defer screen acuity Suicide Screen: [place] Suicide Severity Rating Scale (C-SSRS) screener 1. Over the past month, have you wished you were or wished you could go to sleep and not wake up? Yes 2. Over the past month, have you [...] due to responses to other questions. /jeffry/ PERRY MCDOWELL DIRECTOR NICU REGISTERED NURSE Signed: 05/11/2024 13:08 PERRY MCDOWELL [facility] May 11, 2024 12:58 PM PHYSICIAN EMERGENC Y DEPT NOTE: LOCAL TITLE: EMERGENCY DEPT NOTE STANDARD TITLE: PHYSICIAN EMERGENCY DEPT NOTE DATE OF NOTE: MAY 11, 2024@12:58 ENTRY DATE: MAY 11, 2024@12:58:47 AUTHOR: LUIS GONZALEZ COSIGNER: URGENCY: STATUS: COMPLETED Nurse's note reviewed as available. (PPE): MD used PPE during every encounter with the patient CC: Cannot bend right knee HPI: BETH DURAN is a 78 yo MALE who presents to the Emergency Department via EMS from his care facility. Apparently the patient has been having episodes where they have been unable to bend his right knee. 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 Is also reported that over the past few days he has been having some issues with urinary retention. Patient reports that he urinated today but does feel as though it is difficult to urinate at times. No fevers, no recent trauma, no change in medications. No other complaints at this time. ROS: in addition, Comprehensive ROS o/w negative for pertinent acute symptoms. PMH: Active problems - Computerized Problem List is the source for the followin. Hypertension (SNOMED CT 17418496) 2. Hyperlipidemia (SNOMED CT 02184782) 3. Tinnitus * 4. 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 Asthma (SNOMED CT 031712835) 6. Diabetic retinopathy (SNOMED CT 5569292) 7. Type 2 diabetes mellitus (SNOMED CT 42454501) 8. Umbilical hernia (SNOMED CT 638355231) 9. Obstructive sleep apnea (SNOMED CT 55034285) 10. Obesity * - 10 TOPIC GRAD 07-09-2012* 244.0 --> 09-17-12* 243.2 lbs 11. Anemia 12. Rosacea 13. Carcinoma of bladder - Followed by outside Urology. 14. Depression ([facility] 43696658) - prescribed by [facility] for depression 15. Congestive heart failure 16. CVA - Cerebrovascular accident - 11/2020, outside hospital. - Right sided hemiparesis 17. Dysphagia as a late effect of cerebrovascular accident 18. Long-term current use of anticoagulant 19. Exposure to Agent Floyd 20. Paroxysmal atrial fibrillation 21. Exposure to potentially hazardous substance ([facility] [id number]) - Entered automatically through [employer] Problem List documentation program 22. Chronic kidney disease stage 3A Allergies: PENICILLIN (Mar 17, 2007) SULFA DRUGS (Mar 17, 2007) DOXYCYCLINE (Jul 11, 2010) LISINOPRIL (Jul 22, 2011) AMLODIPINE (Nov 19, 2017) Allergies, SH, medications reviewed in CPRS Active Outpatient Medications (excluding Supplies): Outpatient Medications Status 1) ACCU-CHEK GUIDE (GLUCOSE) [...] (S) MOUTH AT BEDTIME FOR CHOLESTEROL 5) BUPROPION HCL 150MG 24HR SA TAB TAKE ONE TABLET BY ACTIVE (S) MOUTH EVERY DAY FOR DEPRESSION 6) CHOLECALCIF 25MCG (D3-1,000UNIT) TAB TAKE ONE TABLET ACTIVE BY MOUTH EVERY DAY FOR VITAMIN D SUPPLEMENT 7) CLEANSER,WOUND SKINTEGRITY TOP SPRAY SPRAY TO ACTIVE AFFECTED AREA TOPICALLY DIRECTED FOR WOUND CARE 8) EMPAGLIFLOZIN 25MG TAB TAKE ONE TABLET BY MOUTH EVERY ACTIVE (S) DAY FOR DIABETES 9) ESCITALOPRAM OXALATE 10MG TAB TAKE ONE TABLET BY ACTIVE (S) MOUTH EVERY DAY FOR MOOD 10) INSULIN,ASPART(EQV-NOVLG)1 00UN/ML FLXPEN INJECT ACTIVE (S) DIRECTED UNDER THE [...] TO ADMINISTRATION. MAX 36 UNITS PER DAY. 11) INSULIN,GLARGINE-YFGN 100UNIT/ML PEN 3ML INJECT 25 ACTIVE UNITS UNDER THE SKIN AT BEDTIME FOR DIABETES 12) KETOCONAZOLE 2% SHAMPOO SHAMPOO SCALP TOPICALLY 3 ACTIVE TIMES WEEKLY *LATHER FOR 5 MINUTES THEN RINSE* 13) LEVOTHYROXINE NA (SYNTHROID) 100MCG TAB TAKE ONE ACTIVE (S) TABLET BY MOUTH EVERY DAY FOR THYROID 14) LIDOCAINE 5% PATCH APPLY 1 PATCH TOPICALLY EVERY DAY ACTIVE NEEDED FOR UP TO 12 HOURS FOR PAIN REMOVE AFTER 12 HOURS. MAX 1 PATCH PER 24 HOURS. 15) LOPERAMIDE HCL 2MG CAP TAKE ONE CAPSULE BY MOUTH ACTIVE EVERY 6 HOURS NEEDED FOR DIARRHEA DIRECTED: 2 CAPSULES (4MG) AFTER 1ST LOOSE STOOL, THEN 1 CAPSULE AFTER SUBSEQUENT LOOSE STOOL IF NEEDED. MAX 8 CAPS (16MG/DAY). 16) LOSARTAN 25MG TAB TAKE ONE TABLET BY MOUTH EVERY DAY ACTIVE (S) FOR BLOOD PRESSURE 17) MECLIZINE HCL 25MG CHEW TAB CHEW ONE-HALF TABLET BY ACTIVE MOUTH EVERY DAY AND CHEW ONE-HALF TABLET EVERY DAY NEEDED FOR DIZZINESS 18) MELATONIN 3MG CAP/TAB TAKE 2 TABLETS BY MOUTH AT ACTIVE BEDTIME FOR SLEEP 19) OMEPRAZOLE 40MG EC CAP TAKE ONE CAPSULE BY MOUTH ACTIVE (S) EVERY DAY FOR STOMACH ACID DOSE INCREASE 20) ONDANSETRON 4MG ORAL DISINTEGRATING TAB DISSOLVE ONE ACTIVE TABLET BY UNDER THE TONGUE EVERY 6 HOURS NEEDED FOR NAUSEA AND VOMITING 21) SEMAGLUTIDE 1MG/0.75ML INJ PEN 3ML INJECT 1MG UNDER ACTIVE THE SKIN EVERY WEEK FOR DIABETES 22) SENNOSIDES 8.6MG TAB TAKE TWO TABLETS BY MOUTH EVERY ACTIVE DAY NEEDED FOR CONSTIPATION 23) SODIUM FLUORIDE 1.1% TOOTHPASTE BRUSH TEETH WITH A ACTIVE SMALL AMOUNT MOUTH EVERY MORNING AND AT BEDTIME TO PREVENT DENTAL CAVITIES 24) TORSEMIDE 10MG TAB TAKE ONE TABLET BY MOUTH EVERY DAY ACTIVE (S) FOR EXCESS FLUID 25) ZINC OXIDE 20% OINT APPLY SMALL AMOUNT TOPICALLY ACTIVE THREE TIMES A DAY NEEDED FOR SKIN PROTECTION APPLY A THIN LAYER TO AFFECTED PERINEAL AREAS TOPICALLY 2-3 TIMES DAILY NEEDED. MAY DAB AND REAPPLY. DO NOT WIPE COMPLETELY OFF SKIN FOR EACH APPLICATION. SH: FH: Exam Temp : 98.1 F [36.7 C] (04/28/2024 14:32) P : 51 (04/28/2024 14:32) RR : 16 (04/28/2024 14:32) B/P : 168/88 (04/28/2024 14:38) Wt : 184.7 lb [83.78 kg] (04/28/2024 14:32) Pain : 0 (04/28/2024 14:32) Pulse Ox: 98% (04/28/2024 14:32) Gen: Patient is awake and alert, no acute distress. Mentating normally and protecting their airway without difficulty Head: Atraumatic Eyes: PERRL, EOMI, no scleral icterus or conjunctival pallor. ENT: Oral mucosa moist. Neck: Supple, no obvious thyromegaly or thyroid mass, no JVD CV: RRR, no M/R/G Pulm: Clear to auscultation bilaterally GI: Abdomen is soft, nondistended, nontender to palpation. No obvious organomegaly on exam, no palpable masses or pulsatile masses, bladder scan approximately 300 cc in bladder Neuro: A&O appropriate, spastic right-sided hemiplegia noted. Deep tendon reflexes on the right are hyperreflexic Extremities: no edema, normal range of motion, no obvious joint swelling, no palpable effusion of right knee and no palpable deformity. Patient does have full passive range of motion with some increased muscle tone of right quadricep. Skin: Warm, dry, capillary refill less than 2 seconds, no rashes or skin lesions noted Beh: Appropriate, reasonable insight/judgement Relevant diagnostic studies reviewed in CPRS. APPEARANCE: CLEAR UR COLOR: COLORLESS SPECIFIC GRAVITY: 1.010 UR BLOOD: TRACE UR BILIRUBIN: NEGATIVE UR KETONES: NEGATIVE UR GLUCOSE: >1000 UR PROTEIN: 30 UR PH: 5.5 WBC/HPF: 11 H RBC/HPF: 8 H BACTERIA: FEW UR YEAST: MODERATE SQUAMOUS EPITHELIAL: 1 NITRITE, URINE: NEGATIVE LEUKOCYTE ESTERASE: 250 EXTRA PURPLE TUBE: RECEIVED EXTRA BLUE TUBE: RECEIVED EXTRA RED TUBE: RECEIVED GLUCOSE: 171 H UREA NITROGEN: 25 CREATININE: 1.3 H SODIUM: 141 POTASSIUM: 4.4 CHLORIDE: 107 CO2: 26 CALCIUM: 9.0 PO4: 3.6 MAGNESIUM: 1.9 ANION GAP: 8 CREATININE EGFR (CKD-EPI): 56 L ED Course/MDM/ASSESSMENT/PLAN : This patient presented to the emergency department with urinary complaints of not feeling as though he was completely emptying his bladder as well as complaints of right leg stiffness and spasm that would occur intermittently. Patient does have a history of CVA and does seem to have some spasticity of the right lower extremity with increased muscle tone and hyperreflexia. No significant electrolyte abnormalities are noted. Suspect that this is sequelae to his CVA. I feel that follow-up with physical medicine and rehabilitation may be beneficial. I will place him on low-dose baclofen and have referred him to follow-up with his primary clinic for PM&R referral. Urinalysis is mildly suggestive of a urinary tract infection so we will be started on antibiotics. Urine culture was ordered. Patient will be discharged to follow-up as an outpatient and was told to return for any further problems. Diagnosis: Right leg spasms UTI Edu: was informed of available results, impression, plan of care - verbalized understanding/agreement. /jeffry/ ULIS GONZALEZ FEE BASIS PHYSICIAN Signed: 05/11/2024 16:52 Receipt Acknowledged By: 05/12/2024 09:23 /es/ JACQUI DE LA GARZA, RN REGISTERED NURSE 05/11/2024 21:35 /jeffry/ Ced Epstein D.O. Staff Physician LUIS GONZALEZ [facility]
--- OUTSIDE RECORDS SUMMARY | 2024-06-02 00:49 | XMS_ITS | Encounter Summary ---
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 [place] Organization [facility] Address [address] [place] [address] Care Team Providers Care Film Printer Name Role Phone DONTRELL EPSTEINSON Primary Care [...] OF [place] [facility] ([place]NR) MEDICARE [facility]) Sep 29, 2019 [id number] ONI DURAN MON PATIENT [place] [facility] (WNR) MEDICARE ([place]) [facility] ([facility]) Sep 29, 2008 [id number] ONI DURAN MON PATIENT [place] [facility] ([place]NR) MEDICARE ADVANTAGE [facility] ([facility]) Sep 29, 2008 [id number] [phone] [id number] ONI DURAN MON PATIENT UCARE [facility] (WNR) MEDICARE [facility] ([facility]) Sep 29, 2019 [id number] ONI DURAN PATIENT [facility] (WNR) MEDICARE ADVANTAGE [facility] (WNR) Sep 29, 2010 [id number] ONI DURAN PATIENT Selected Encounter This section includes the information on record at [place] for the Encounter. Date/Time Encounter Type Encounter Description Reason Pro vider Source May 06, 2024 08:02 AM Outpatient Encounter ENDOCRINOLOGY I[facility] Encounter Template Text not used by [facility] Plan of Treatment: Future Appointments (+ 6 months) and Future Tests (+/- 45 days) The Plan of Treatment section includes [facility] care activities for the [facility] [place]. This section includes future [...] 11, 2024 12:42 PM AMBULATORY - MEDICINE [facility] May 11, 2024 05:00 PM AMBULATORY - NONE [facility] May 14, 2024 04:50 PM [facility] Sep 08, 2024 01:15 PM AMBULATORY - MEDICINE [facility] Sep 08, 2024 01:30 PM AMBULATORY - MEDICINE [facility] Sep 08, 2024 02:30 PM AMBULATORY MEDICINE [facility] Active, Pending, and Scheduled Orders [...] Laboratory - Chemistry Order AST/SGOT PLASMA SP [facility] Apr 05, 2024 12:00 AM Laboratory - Chemistry Order ALT/SGPT PLASMA SP [facility] Apr 05, 2024 12:00 AM Laboratory - Chemistry Order BASIC METABOLIC PANEL+MG PLASMA SP [facility] Apr 05, 2024 12:00 AM Laboratory - Chemistry Order CBC BLOOD SP ONCE [facility] May 11, 2024 04:49 PM Laboratory - Microbiology Order CULTURE & SUSCEPTIBILITY URINE WC ONCE [facility] May 13, 2024 12:00 AM Laboratory - Chemistry Order LIPID PANEL,NON-FASTING PLASMA SP ONCE [facility] May 13, 2024 12:00 AM Laboratory - Chemistry Order BASIC METABOLIC PANEL+MG PLASMA SP ONCE [facility] May 13, 2024 12:00 AM Laboratory - Chemistry Order ALBUMIN/CREATININE RATIO URINE URINE WC ONCE [facility] Lab Results: +/- 30 days of the encounter This section includes the Chemistry and Hematology Lab Results on record with [place] for the patient. Radiology Reports and Pathology Reports are provided separately, in subsequent sections. Lab Results This section contains the Chemistry/Hematology Results that were resulted 30 days before or 30 daysafter the date of the Encounter. Date/Time Source Result Type Result - Unit Interpretation Reference Range Comment May 11, 2024 02:05 PM [facility] URINALYSIS Specimen Type: URINE No comment entered. Ordering Provider: KELLIE GONZALEZ Report Released Date/Time: May 11, 2024 12:58 PM Reporting Lab: [facility] [id number] Performing Lab: [facility] [id number] URINE COLOR COLORLESS SPECIFIC GRAVITY 1.010 1.003-1.035 [...] 250 NEGATIVE May 11, 2024 01:00 PM [facility] EXTRA PURPLE TUBE Specimen Type: BLOOD No comment entered. Ordering Provider: KELLIE GONZALEZ Report Released Date/Time: May 11, 2024 01:11 PM Reporting Lab: [facility] [phone] Performing Lab: [facility] [id number] EXTRA PURPLE TUBE RECEIVED May 11, 2024 01:00 PM [facility] EXTRA BLUE TUBE Specimen Type: PLASMA No comment entered. Ordering Provider: KELLIE GONZALEZ Report Released Date/Time: May 11, 2024 01:11 PM Reporting Lab: [facility] [id number] Performing Lab: [facility] [id number] EXTRA BLUE TUBE RECEIVED May 11, 2024 01:00 PM [facility] EXTRA GOLD GEL TUBE Specimen Type: SERUM No comment entered. Ordering Provider: KELLIE GONZALEZ Report Released Date/Time: May 11, 2024 01:11 PM Reporting Lab: [facility] [id number] Performing Lab: [facility] [phone] EXTRA GOLD GEL TUBE RECEIVED May 11, 2024 01:00 PM [facility] PHOSPHORUS Specimen Type: PLASMA No comment entered. Ordering Provider: KELLIE GONZALEZ Report Released Date/Time: May 11, 2024 12:58 PM Reporting Lab: [facility] [phone] Performing Lab: [facility] [phone] PHOSPHORUS 3.6 mg/dL 2.3-4.3 May 11, 2024 01:00 PM [facility] BASIC METABOLIC PANEL+MG Specimen Type: PLASMA No comment entered. Ordering Provider: KELLIE GONZALEZ Report Released Date/Time: May 11, 2024 12:58 PM Reporting Lab: [facility] [id number] Performing Lab: [facility] [address] CREATININE 1.3 mg/dL H 0.7-1.2 UREA NITROGEN [...] 10, 2023 03:30 PM VA-TOBACCO FORMER USER [facility] Tobacco Use History This section includes a history of the smoking, or tobacco-related health factors, that were collected on or before the date of the Encounter. The data comes from the [place] facility where the Encounter took place. Date/Time Smoking Status/Tobacco Use Comment F acility Sep 10, 2023 03:30 PM VA-TOBACCO QUIT 15 YRS OR MORE [facility] Jun 13, 2020 10:00 AM VA-TOBACCO FORMER USER [facility] Jun 13, 2020 10:00 AM VA-TOBACCO QUIT 15 YRS OR MORE [facility] May 20, 2019 12:18 PM VA-TOBACCO FORMER USER [facility] May 20, 2019 12:18 PM VA-TOBACCO QUIT 15 YRS OR MORE [facility] Jul 30, 2018 08:31 AM VA-TOBACCO FORMER USER [facility] Jul 30, 2018 08:31 AM VA-TOBACCO QUIT 15 YRS OR MORE [facility] Aug 25, 2017 08:04 AM FORMER TOBACCO USER 7Y OR GREATE R [facility] Nov 08, 2016 08:12 AM FORMER TOBACCO USER 7Y OR GREATE R [facility] Nov 29, 2015 12:46 PM FORMER TOBACCO USER 7Y OR GREATE R [facility] February 23, 2015 12:57 PM FORMER TOBACCO USER 7Y OR GREATE R [facility] January 27, 2014 10:10 AM FORMER TOBACCO USER 7Y OR GREATE R [facility] Mar 17, 2007 09:11 AM FORMER TOBACCO USER 7Y OR GREATE R [facility] Advance Directives: All [...] document. The data comes from all [facility]. Date Advance Directives Provider Source Mar 17, 2007 ADVANCE DIRECTIVE ALBERTO RODRIGUEZ [facility] Encounter Notes: All associated encounter notes This section contains the clinical notes associated to the Encounter. Date/Time Encounter Note(s) Provider Source May 06, 2024 08:02 AM REPORT OF CONTACT: LOCAL TITLE: APPOINTMENT SCHEDULING NOTE STANDARD TITLE: REPORT OF CONTACT DATE OF NOTE: MAY 06, 2024@08:02 ENTRY DATE: MAY 06, 2024@08:02:16 AUTHOR: ALEJANDRA SARAVIA COSIGNER: URGENCY: STATUS: COMPLETED Attempted to schedule Recall/Patient Center Scheduling (PtCSch) Contact attempt made to 1st attempt Letter - Sent letter by regular [place] mail to address on file: BETH DURAN [address] [facility] [address] [place] [address] 2nd attempt Text message Disposition order request after Apr Other: TEXT SENT 04.23.24 If calls back, schedule appt for: Activity: 11/06/2023 10:38 New Order entered by LONA PALACIO (PHYSICIAN) Order Text: Return to [facility] on or around ( May 13, 2024 ) for a total of 1 appointment(s) Prerequisites: Labs (NON-FASTING)#[id number] ,93 [facility] #[id number] labs jan 11 and labs on return // ALEJANDRA SARAVIA LEAD MSA Signed: 05/06/2024 08:04 ALEJANDRA SARAVIA [facility]
--- OUTSIDE RECORDS SUMMARY | 2024-06-02 00:50 | XMS_ITS | Encounter Summary ---
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 [place] [facility] Address [address] [place] [address] Care Team Providers Care Chiller Technician Name Role Phone CED EPSTEIN Primary Care [...] Relationship to Policy Mar [facility] (WNR) MEDICARE ADVANTAGE [facility] (R) Sep 29, 2019 [id number] ONI DURAN MON PATIENT [facility] (WNR) MEDICARE (M) [facility] (R) Sep 29, 2008 [id number] ONI DURAN MON PATIENT [facility] (WNR) MEDICARE ADVANTAGE [facility] (WNR) Sep 29, 2008 [id number] ONI DURAN MON PATIENT [facility] (WNR) MEDICARE ADVANTAGE [facility] ([facility]) Sep 29, 2019 [id number] [facility] MCR (WNR) MEDICARE ADVANTAGE MCR (WNR) Sep 29, 2010 [id number] ONI DURAN PATIENT Selected Encounter This section includes the information on record at [place] for the Encounter. Date/Time Encounter Type Encounter Description Reason Provider Source May 14, 2024 04:50 PM Outpatient Encounter ADMIN PAT ACTIVTIES (MASNONCT) DONALD CRAIN Encounter Template Text not used by [place] Plan of Treatment: Future Appointments (+ 6 months) and Future Tests (+/- 45 days) The Plan of Treatment section includes future care activities for the patient from all [place] [facility] This section includes future appointments and future orders which are active, pending or scheduled. Future Appointments This section includes appointments that were scheduled to occur 6 months from the date of the Encounter, up to a maximum of 20 appointments. The data comes from all [facility]. Appointment Date/Time Appointment Type Appointme nt Facility Name Sep 08, 2024 01:15 PM AMBULATORY - MEDICINE [facility] Sep 08, 2024 01:30 PM AMBULATORY MEDICINE [facility] Sep 08, 2024 02:30 PM AMBULATORY MEDICINE [facility] Active, Pending, and [...] Laboratory - Chemistry Order AST/SGOT PLASMA SP [facility] Apr 05, 2024 12:00 AM Laboratory - Chemistry Order ALT/SGPT PLASMA SP [facility] Apr 05, 2024 12:00 AM Laboratory - Chemistry Order CBC BLOOD SP ONCE [facility] Apr 05, 2024 12:00 AM Laboratory - Chemistry Order BASIC METABOLIC PANEL+MG PLASMA SP [facility] May 11, 2024 04:49 PM Laboratory - Microbiology Order CULTURE & SUSCEPTIBILITY URINE WC ONCE [facility] May 13, 2024 12:00 AM Laboratory - Chemistry Order LIPID PANEL,NON-FASTING PLASMA SP ONCE [facility] May 13, 2024 12:00 AM Laboratory - Chemistry Order BASIC METABOLIC PANEL+MG PLASMA SP ONCE [facility] May 13, 2024 12:00 AM Laboratory - Chemistry Order ALBUMIN/CREATININE RATIO URINE URINE WC ONCE [facility] Lab Results: +/- 30 days of the encounter This section includes the Chemistry and Hematology Lab Results on record with [place] for the patient. Radiology Reports and Pathology Reports are provided separately, in subsequent sections. Lab Results This section contains the Chemistry/Hematology Results that were resulted 30 days before or 30 daysafter the date of the Encounter. Date/Time Source Result Type Result - Unit Interpretation Reference Range Comment May 11, 2024 02:05 PM [facility] URINALYSIS Specimen Type: URINE No comment entered. Ordering Provider: KELLIE GONZALEZ Report Released Date/Time: May 11, 2024 12:58 PM Reporting Lab: [facility] [id number] Performing Lab: [facility] [id number] URINE COLOR COLORLESS SPECIFIC GRAVITY 1.010 1.003-1.035 [...] 250 NEGATIVE May 11, 2024 01:00 PM [facility] EXTRA PURPLE TUBE Specimen Type: BLOOD No comment entered. Ordering Provider: KELLIE GONZALEZ Report Released Date/Time: May 11, 2024 01:11 PM Reporting Lab: [facility] [id number] Performing Lab: [facility] [id number] EXTRA PURPLE TUBE RECEIVED May 11, 2024 01:00 PM [facility] EXTRA BLUE TUBE Specimen Type: PLASMA No comment entered. Ordering Provider: KELLIE GONZALEZ Report Released Date/Time: May 11, 2024 01:11 PM Reporting Lab: [facility] [phone] Performing Lab: [facility] [phone] EXTRA BLUE TUBE RECEIVED May 11, 2024 01:00 PM [facility] EXTRA GOLD GEL TUBE Specimen Type: SERUM No comment entered. Ordering Provider: KELLIE GONZALEZ Report Released Date/Time: May 11, 2024 01:11 PM Reporting Lab: [facility] [phone] Performing Lab: [facility] [address] EXTRA GOLD GEL TUBE RECEIVED May 11, 2024 01:00 PM [facility] PHOSPHORUS Specimen Type: PLASMA No comment entered. Ordering Provider: KELLIE GONZALEZ Report Released Date/Time: May 11, 2024 12:58 PM Reporting Lab: [facility] [phone] Performing Lab: [facility] [address] PHOSPHORUS 3.6 mg/dL 2.3-4.3 May 11, 2024 01:00 PM [facility] BASIC METABOLIC PANEL+MG Specimen Type: PLASMA No comment entered. Ordering Provider: KELLIE GONZALEZ Report Released Date/Time: May 11, 2024 12:58 PM Reporting Lab: [facility] [phone] Performing Lab: [facility] [address] CREATININE 1.3 mg/dL H 0.7-1.2 UREA NITROGEN [...] tobacco- related health factors from the [facility] where the Encounter took place. Current Smoking Status This section includes the most current smoking, or tobacco-related health factor, from the [place] facility where the Encounter took place. Date/Time Current Smoking Status Comment Facil diana Sep 10, 2023 03:30 PM VA-TOBACCO FORMER USER [facility] Tobacco Use History This section includes a history of the smoking, or tobacco-related health factors, that were collected on or before the date of the Encounter. The data comes from the [place] facility where the Encounter took place. Date/Time Smoking Status/Tobacco Use Comment F acility Sep 10, 2023 03:30 PM VA-TOBACCO QUIT 15 YRS OR MORE [facility] Jun 13, 2020 10:00 AM VA-TOBACCO FORMER USER [facility] Jun 13, 2020 10:00 AM VA-TOBACCO QUIT 15 YRS OR MORE [facility] May 20, 2019 12:18 PM VA-TOBACCO FORMER USER [facility] May 20, 2019 12:18 PM VA-TOBACCO QUIT 15 YRS OR MORE [facility] Jul 30, 2018 08:31 AM VA-TOBACCO FORMER USER [facility] Jul 30, 2018 08:31 AM VA-TOBACCO QUIT 15 YRS OR MORE [facility] Aug 25, 2017 08:04 AM FORMER TOBACCO USER 7Y OR GREATE R [facility] Nov 08, 2016 08:12 AM FORMER TOBACCO USER 7Y OR GREATE R [facility] Nov 29, 2015 12:46 PM FORMER TOBACCO USER 7Y OR GREATE R [facility] February 23, 2015 12:57 PM FORMER TOBACCO USER 7Y OR GREATE R [facility] January 27, 2014 10:10 AM FORMER TOBACCO USER 7Y OR GREATE R [facility] Mar 17, 2007 09:11 AM FORMER TOBACCO USER 7 OR GREATE R [facility] Advance Directives: All historical and current Section Date Range: From patient's date of to the date document was created. This section includes ALL of a patient's completed or amended [place] Advance and Rescinded Directives. The entries below indicate that a directive exists for the patient, but an actual copy is not included with this document. The data comes from all [facility]. Date Advance Directives Provider Source Mar 17, 2007 ADVANCE DIRECTIVE [facility] Encounter Notes: All associated encounter notes This section contains the clinical notes associated to the Encounter. Date/Time Encounter Note(s) Provider Source May 18, 2024 02:12 PM ADDENDUM: LOCAL TITLE: Addendum STANDARD TITLE: ADDENDUM DATE OF NOTE: MAY 18, 2024@14:12:49 ENTRY DATE: MAY 18, 2024@14:12:51 AUTHOR: OLGA LIDIA CRAIN COSIGNER: URGENCY: STATUS: COMPLETED CLINICAL CARE COORDINATION INFORMATION Hospital Discharge note Hospital: [facility] Admit date: 05/14/24 Discharge date: 05/18/24 Level of care: Acute Care Discharge diagnosis: Closed head injury with concussion Hospital Course (Copied from [employer]): Beth Duran is a(n) 78 y.o. with a history of prior stroke (resulting right hemiparesis & right homonymous hemianopia, vascular dementia, paroxysmal a-fib (takes Eliquis), T2DM (takes insulin), diabetic retinopathy & neuropathy, HTN, HLD, bladder cancer, COPD, CHF presenting per EMS with his from [facility] (not the [facility] side) for evaluation of fall and right head bleed, who was admitted on 05/14/2024 with closed head injury with concussion, recent subacute encephalopathy and UTI. concerned he's more confused since Friday 05/11, confused and paranoid, worried he had another stroke. Evaluated at the [place] ER and diagnosed with UTI, discharged with oral abx and muscle relaxant. Brought to the ED after a fall at his assisted living. Found to have laceration of his forehead, the was repaired in the ED with [address] of his head and cervical spine did not show any acute findings and he was admitted to the hospital for further evaluation and treatment, started on IV abx for recent UTI. Initially in the ED more confused, however this cleared throughout his hospital stay. Patient wanted to discuss his long med list and adjustments made to try and decrease pill burden, discussed with him that UTI and muscle relaxer potentially caused delirium. Patient able to answer all orienting questions and passed testing performed by OT (although limited secondary to his vision issues) - if more formal cognitive testing is wanted would recommend formal neuro psych testing. After working with PT, felt to be at baseline mobility, discharging back to assisted living with home PT. Patient is a high fall risk and offered looking into higher level of cares such as a TCU, however patient declined. Follow-Up: Post Hospital Follow Up [facility] Dr. Billy Graf May 24 @ 10:40am * Specific recommendations to be addressed at the follow up visit: - Concussion and forehead laceration: remove sutures 5-7 days after they were placed (05/20-05/22/2024) - UTI: finish abx today then done - depression hx and polypharmacy: wishes to wean off Escitalopram - Cognitive - consider formal neuro psych testing * Medication changes: - Start psyllium - complete course of abx - wean off Escitalopram over 2-4 weeks - stopped senna, oxycodone, meclizine, and muscle relaxer * Follow up labs/imaging: - repeat hgb, wbc, creat, k, na in 3-7 days * Other specialty follow-up not included in [place] orders: consider neruopsych * SI Category 5. Please consider having a serious illness conversation with the patient in clinic Disposition: PENITENTIARY with home health care - Assisted Living Facility: [facility] , . PT through [facility] records uploaded to [employer]. Please review for any additional follow-up or consults needed, thank you. /jeffry/ Olga Lidia Crain RN CAYDEN MSN school clerk Front End Drupal Developer Signed: 05/18/2024 14:15 Receipt Acknowledged By: 05/19/2024 12:03 /es/ JACQUI DE LA GARZA, RN REGISTERED NURSE 05/19/2024 15:20 /es/ Ced Epstein D.O. Staff Physician --- Original Document --- 05/14/24 [facility] PRESENTING CARE COORD PLAN NOTE: Emergency Notification Intake Date Presenting to the Facility: Apr Method of Contact: Notified from [facility] worklist Notification ID: [id number] [facility] Referral #: [facility] Name: Hospital: [facility] Address: City: [place] State: [place] Zip Code: Phone : Community Facility Point of Contact: Name: Phone: Chief complaint: FELL, GASH IN HEAD, STICHED IT UP AND STOPPED BLEEDING, DISORENTED, VERY CONFUSED, THROWING UP Primary Diagnosis: Disposition Unknown at time of intake note entry /jeffry/ FATEMEH COLLINS WEIGHER OPERATOR Signed: 05/14/2024 16:51 Receipt Acknowledged By: 05/17/2024 08:10 /es/ DONALD CRAIN, RN school clerk Front End Drupal Developer 05/17/2024 ADDENDUM STATUS: COMPLETED Co-signing the [facility] Nurse covering this episode of care/facility. /jeffry/ DONALD CRAIN RN school clerk Front End Drupal Developer Signed: 05/17/2024 08:10 Receipt Acknowledged By: 05/17/2024 08:36 /es/ Olga Lidia Crain RN CAYDEN MSN school clerk Front End Drupal Developer 05/17/2024 ADDENDUM STATUS: COMPLETED Notification acknowledged by RN, medical and clinical information not reviewed. /jeffry/ Olga Lidia Crain RN CAYDEN MSN school clerk Front End Drupal Developer Signed: 05/17/2024 08:36 05/14/2024 ADDENDUM STATUS: COMPLETED [facility] Scanned Document - Addendum. ED record 8.16.24 Saskia Bryson SCANNED DOCUMENT SIGNATURE NOT REQUIRED Electronically Filed: 05/18/2024 by: PHILIP MOLINA MSA 05/18/2024 ADDENDUM STATUS: COMPLETED Records uploaded via [employer] for review /es/ PHILIP MOLINA MSA Signed: 05/18/2024 09:58 Receipt Acknowledged By: 05/18/2024 14:12 /es/ Olga Lidia HAMMONDSA MSN school clerk Front End Drupal Developer 05/18/2024 14:11 /es/ JACQUI DE LA GARZA, RN REGISTERED NURSE 05/18/2024 ADDENDUM STATUS: COMPLETED [facility] Scanned Document - Addendum. DC Summary - [facility] 05/14/24-05/18/24 SCANNED DOCUMENT SIGNATURE NOT REQUIRED Electronically Filed: 05/18/2024 by: Olga Lidia Crain RN CAYDEN MSN school clerk Front End Drupal Developer [facility]IA [facility] May 18, 2024 09:58 AM ADDENDUM: LOCAL TITLE: Addendum STANDARD TITLE: ADDENDUM DATE OF NOTE: MAY 18, 2024@09:58:03 ENTRY DATE: MAY 18, 2024@09:58:03 AUTHOR: PHILIP ESCOBEDO COSIGNER: URGENCY: STATUS: COMPLETED Records uploaded via [employer] for review /jeffry/ PHILIP ESCOBEDO ADVANCED MSA Signed: 05/18/2024 09:58 Receipt Acknowledged By: 05/18/2024 14:12 /jeffry/ Olga Lidia Crain RN, MBA MSN school clerk Front End Drupal Developer 05/18/2024 14:11 /es/ JACQUI DE LA GARZA RN REGISTERED NURSE --- Original Document --- 05/14/24 [facility] PRESENTING CARE COORD PLAN NOTE: Emergency Notification Intake Date Presenting to the Facility: Apr Method of Contact: Notified from [employer] worklist Notification ID: [id number] [facility] Name: Hospital: [facility] Address: City: [place] State: [place] Zip Code: Phone : [facility] Point of Contact: Name: Phone: Chief complaint: FELL, GASH IN HEAD, STICHED IT UP AND STOPPED BLEEDING, DISORENTED, VERY CONFUSED, THROWING UP Primary Diagnosis: Disposition Unknown at time of intake note entry /jeffry/ FATEMEH COLLINS WEIGHER OPERATOR Signed: 05/14/2024 16:51 Receipt Acknowledged By: 05/17/2024 08:10 /jeffry/ DONALD CRAIN RN school clerk Front End Drupal Developer 05/17/2024 ADDENDUM STATUS: COMPLETED Co-signing the [facility] Nurse covering this episode of care/facility. /jeffry/ DONALD CRAIN RN school clerk Front End Drupal Developer Signed: 05/17/2024 08:10 Receipt Acknowledged By: 05/17/2024 08:36 /jeffry/ Olga Lidia HAMMONDSA MSN school clerk Front End Drupal Developer 05/17/2024 ADDENDUM STATUS: COMPLETED Notification acknowledged by RN, medical and clinical information not reviewed. /zhanna HAMMONDSA MSN school clerk Front End Drupal Developer Signed: 05/17/2024 08:36 05/14/2024 ADDENDUM STATUS: COMPLETED [facility] Scanned Document - Addendum. ED HP record 05.14.24 [facility] SCANNED DOCUMENT SIGNATURE NOT REQUIRED Electronically Filed: 05/18/2024 by: PHILIP ESCOBEDO ADVANCED [facility] 05/18/2024 ADDENDUM STATUS: UNSIGNED You may not VIEW this UNSIGNED Addendum. PHILIP ESCOBEDO [facility] May 17, 2024 08:10 AM ADDENDUM: LOCAL TITLE: Addendum STANDARD TITLE: ADDENDUM DATE OF NOTE: MAY 17, 2024@08:10:22 ENTRY DATE: MAY 17, 2024@08:10:23 AUTHOR: DONALD CRAIN EXP COSIGNER: URGENCY: STATUS: COMPLETED Co-signing the [facility] Nurse covering this episode of care/facility. /zhanna CRAIN RN school clerk Front End Drupal Developer Signed: 05/17/2024 08:10 Receipt Acknowledged By: 05/17/2024 08:36 /zhanna Crian RN CAYDEN MSN school clerk Front End Drupal Developer --- Original Document --- 05/14/24 [facility] CARE-[facility] SELF PRESENTING CARE COORD PLAN NOTE: Emergency Notification Intake Date Presenting to the Facility: Apr Method of Contact: Notified from [facility] worklist Notification ID: [id number] [facility] Referral #: [facility] Name: Hospital: [facility] Address: City: [place] State: [place] Zip Code: Phone : Community Facility Point of Contact: Name: Phone: Chief complaint: FELL, GASH IN HEAD, STICHED IT UP AND STOPPED BLEEDING, DISORENTED, VERY CONFUSED, THROWING UP Primary Diagnosis: Disposition Unknown at time of intake note entry /jeffry/ FATEMEH COLLINS WEIGHER OPERATOR Signed: 05/14/2024 16:51 Receipt Acknowledged By: 05/17/2024 08:10 /zhanna CRAIN RN school clerk Front End Drupal Developer 05/17/2024 ADDENDUM STATUS: COMPLETED Notification acknowledged by RN, medical and clinical information not reviewed. /es/ Olga Lidia HAMMONDSA MSN school clerk Front End Drupal Developer Signed: 05/17/2024 08:36 DONALD CRAIN [facility] May 14, 2024 04:50 PM NONVA NOTE: LOCAL TITLE: [facility] PRESENTING CARE COORD PLAN STANDARD TITLE: NONVA NOTE DATE OF NOTE: MAY 14, 2024@16:50 ENTRY DATE: MAY 14, 2024@16:50:56 AUTHOR: FATEMEH COLLINS EXP COSIGNER: URGENCY: STATUS: COMPLETED [facility] PRESENTING CARE COORD PLAN NOTE Has ADDENDA Emergency Notification Intake Date Presenting to the Facility: Apr Method of Contact: Notified from [facility] worklist Notification ID: [id number] [facility]: Hospital: [facility] Address: City: [place] State: [place] Zip Code: Phone : [facility] Point of Contact: Name: Phone: Chief complaint: FELL, GASH IN HEAD, STICHED IT UP AND STOPPED BLEEDING, DISORENTED, VERY CONFUSED, THROWING UP Primary Diagnosis: Disposition Unknown at time of intake note entry /jeffry/ FATEMEH COLLINS WEIGHER OPERATOR Signed: 05/14/2024 16:51 Receipt Acknowledged By: 05/17/2024 08:10 /jeffry/ DONALD CRAIN RN school clerk Front End Drupal Developer 05/17/2024 ADDENDUM STATUS: COMPLETED Co-signing the [facility] Nurse covering this episode of care/facility. /zhanna CRAIN RN school clerk Front End Drupal Developer Signed: 05/17/2024 08:10 Receipt Acknowledged By: 05/17/2024 08:36 /jeffry/ Olga Lidia HAMMONDSA MSN school clerk Front End Drupal Developer 05/17/2024 ADDENDUM STATUS: COMPLETED Notification acknowledged by RN, medical and clinical information not reviewed. /zhanna Crain RN CAYDEN MSN school clerk Front End Drupal Developer Signed: 05/17/2024 08:36 05/14/2024 ADDENDUM STATUS: COMPLETED [facility] Scanned Document - Addendum. ED HP record 8.16.24 [facility] SCANNED DOCUMENT SIGNATURE NOT REQUIRED Electronically Filed: 05/18/2024 by: PHILIP MOLINA MSA 05/18/2024 ADDENDUM STATUS: COMPLETED Records uploaded via [employer] for review /es/ PHILIP ESCOBEDO ADVANCED MSA Signed: 05/18/2024 09:58 Receipt Acknowledged By: 05/18/2024 14:12 /es/ Olga Lidia Crain RN CAYDEN MSN school clerk Front End Drupal Developer 05/18/2024 14:11 /es/ JACQUI DE LA GARZA, RN REGISTERED NURSE 05/18/2024 ADDENDUM STATUS: COMPLETED CLINICAL CARE COORDINATION INFORMATION Hospital Discharge note Hospital: [facility] Admit date: 05/14/24 Discharge date: 05/18/24 Level of care: Acute Care Discharge diagnosis: Closed head injury with concussion Hospital Course (Copied from [employer]): Beth Duran is a(n) 78 y.o. with a history of prior stroke (resulting right hemiparesis & right homonymous hemianopia, vascular dementia, paroxysmal a-fib (takes Eliquis), T2DM (takes insulin), diabetic retinopathy & neuropathy, HTN, HLD, bladder cancer, COPD, CHF presenting per EMS with his from [facility] (not the [facility] care side) for evaluation of fall and right head bleed, who was admitted on 05/14/2024 with closed head injury with concussion, recent subacute encephalopathy and UTI. concerned he's more confused since Friday 05/11, confused and paranoid, worried he had another stroke. Evaluated at the [place] ER and diagnosed with UTI, discharged with oral abx and muscle relaxant. Brought to the ED after a fall at his assisted living. Found to have laceration of his forehead, the was repaired in the ED with [address] of his head and cervical spine did not show any acute findings and he was admitted to the hospital for further evaluation and treatment, started on IV abx for recent UTI. Initially in the ED more confused, however this cleared throughout his hospital stay. Patient wanted to discuss his long med list and adjustments made to try and decrease pill burden, discussed with him that UTI and muscle relaxer potentially caused delirium. Patient able to answer all orienting questions and passed testing performed by OT (although limited secondary to his vision issues) - if more formal cognitive testing is wanted would recommend formal neuro psych testing. After working with PT, felt to be at baseline mobility, discharging back to assisted living with home PT. Patient is a high fall risk and offered looking into higher level of cares such as a TCU, however patient declined. Follow-Up: Post Hospital Follow Up [facility] Dr. Billy Graf May 24 @ 10:40am * Specific recommendations to be addressed at the follow up visit: - Concussion and forehead laceration: remove sutures 5-7 days after they were placed (05/20-05/22/2024) - UTI: finish abx today then done - depression hx and polypharmacy: wishes to wean off Escitalopram - Cognitive - consider formal neuro psych testing * Medication changes: - Start psyllium - complete course of abx - wean off Escitalopram over 2-4 weeks - stopped senna, oxycodone, meclizine, and muscle relaxer * Follow up labs/imaging: - repeat hgb, wbc, creat, k, na in 3-7 days * Other specialty follow-up not included in DC orders: consider neruopsych * SI Category 5. Please consider having a serious illness conversation with the patient in clinic Disposition: PENITENTIARY with home health care - Assisted Living Facility: [facility] , . PT through [facility] records uploaded to [facility]. Please review for any additional follow-up or consults needed, thank you. /jeffry/ Olga Lidia HAMMONDSA MSN school clerk Front End Drupal Developer Signed: 05/18/2024 14:15 Receipt Acknowledged By: * AWAITING SIGNATURE * JACQUI DE LA GARZA * AWAITING SIGNATURE * [facility]ED [facility] 05/18/2024 ADDENDUM STATUS: COMPLETED [facility] Scanned Document - Addendum. DC Summary - [facility] 05/14/24-05/18/24 SCANNED DOCUMENT SIGNATURE NOT REQUIRED Electronically Filed: 05/18/2024 by: Olga Lidia HAMMONDSA MSN school clerk Front End Drupal Developer FATEMEH COLLINS [facility]
--- OUTSIDE RECORDS SUMMARY | 2024-06-02 00:50 | XMS_ITS | Encounter Summary ---
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 ([place]) Organization Department of [facility] Affairs ([place]) Address [address] [place] [address] Care Team Providers Care Power Cleaner Operator Name Role Phone LUCIAN CED Primary [...] Relationship to Policy Mar [facility] [place] [facility] (WNR) MEDICARE [facility] ([facility]) Sep 29, 2019 [id number] [phone] [id number] ONI DURAN MON PATIENT [facility] [place] [facility] ([place]NR) MEDICARE ([place]) [facility] ([facility]) Sep 29, 2008 [id number] ONI DURAN MON PATIENT [facility] [place] [facility] (WNR) MEDICARE ADVANTAGE [facility] (R) Sep 29, 2008 [id number] ONI DURAN MON PATIENT [facility] (WNR) MEDICARE ADVANTAGE [facility] ([facility]) Sep 29, 2019 [id number] ONI DURAN PATIENT [facility] [place] [facility] (WNR) MEDICARE ADVANTAGE [facility] (WNR) Sep 29, 2010 [id number] 42 ONI DURAN PATIENT Selected Encounter This section includes the information on record at [place] for the Encounter. Date/Time Encounter Type Encounter Description Reason Pro vider Source May 14, 2024 02:19 PM Outpatient Encounter COMMUNITY CARE CONSULT IHE Encounter Template Text not used by ME Plan of Treatment: Future Appointments (+ 6 months) and Future Tests (+/- 45 days) The Plan of Treatment section includes future care activities for the patient from all [place] [facility] This section includes future appointments and future orders which are active, pending or scheduled. Future Appointments This section includes appointments that were scheduled to occur 6 months from the date of the Encounter, up to a maximum of 20 appointments. The data comes from all [facility]. Appointment Date/Time Appointment Type Appointme nt Facility Name Sep 08, 2024 01:15 PM AMBULATORY - MEDICINE [facility] Sep 08, 2024 01:30 PM AMBULATORY MEDICINE [facility] Sep 08, 2024 02:30 PM AMBULATORY MEDICINE [facility] Active, Pending, and Scheduled Orders This section includes a listing of several types of active, pending, and scheduled orders, including clinic medications orders, diagnostic test orders, procedure orders and consult orders; where the start date of the order is 45 days before the date of the Encounter or 45 days after the date of theEncounter. The data comes from all [facility]. Test Date/Time Test Type Test Details Facility Name Apr 05, 2024 12:00 AM Laboratory - Chemistry Order AST/SGOT PLASMA SP [facility] Apr 05, 2024 12:00 AM Laboratory - Chemistry Order ALT/SGPT PLASMA SP [facility] Apr 05, 2024 12:00 AM Laboratory - Chemistry Order CBC BLOOD SP ONCE [facility] Apr 05, 2024 12:00 AM Laboratory - Chemistry Order BASIC METABOLIC PANEL+MG PLASMA SP [facility] May 11, 2024 04:49 PM Laboratory - Microbiology Order CULTURE & SUSCEPTIBILITY URINE WC ONCE [facility] May 13, 2024 12:00 AM Laboratory - Chemistry Order LIPID PANEL,NON-FASTING PLASMA SP ONCE [facility] May 13, 2024 12:00 AM Laboratory - Chemistry Order BASIC METABOLIC PANEL+MG PLASMA SP ONCE [facility] May 13, 2024 12:00 AM Laboratory - Chemistry Order ALBUMIN/CREATININE RATIO URINE URINE WC ONCE [facility] Lab Results: +/- 30 days [...] Comment May 11, 2024 02:[address] [facility] URINALYSIS Specimen Type: URINE No comment entered. Ordering Provider: KELLIE GONZALEZ Report Released Date/Time: May 11, 2024 12:58 PM Reporting Lab: [facility] [address] Performing Lab: [facility] [address] URINE COLOR COLORLESS SPECIFIC GRAVITY 1.010 1.003-1.035 [...] NEGATIVE May 11, 2024 01:[address] [facility] EXTRA PURPLE TUBE Specimen Type: BLOOD No comment entered. Ordering Provider: KELLIE GONZALEZ Report Released Date/Time: May 11, 2024 01:11 PM Reporting Lab: [facility] [address] Performing Lab: [facility] [address] EXTRA PURPLE TUBE RECEIVED May 11, 2024 01:[address] [facility] EXTRA BLUE TUBE Specimen Type: PLASMA No comment entered. Ordering Provider: KELLIE GONZALEZ Report Released Date/Time: May 11, 2024 01:11 PM Reporting Lab: [facility] [address] Performing Lab: [facility] [address] EXTRA BLUE TUBE RECEIVED May 11, 2024 01:[address] [facility] EXTRA GOLD GEL TUBE Specimen Type: SERUM No comment entered. Ordering Provider: KELLIE GONZALEZ Report Released Date/Time: May 11, 2024 01:11 PM Reporting Lab: [facility] [address] Performing Lab: [facility] [address] EXTRA GOLD GEL TUBE RECEIVED May 11, 2024 01:[address] [facility] PHOSPHORUS Specimen Type: PLASMA No comment entered. Ordering Provider: KELLIE GONZALEZ Report Released Date/Time: May 11, 2024 12:58 PM Reporting Lab: [facility] [address] Performing Lab: [facility] [address] PHOSPHORUS 3.6 mg/dL 2.3-4.3 May 11, 2024 01:[address] [facility] BASIC METABOLIC PANEL+MG Specimen Type: PLASMA No comment entered. Ordering Provider: KELLIE GONZALEZ Report Released Date/Time: May 11, 2024 12:58 PM Reporting Lab: [facility] [address] Performing Lab: [facility] [address] CREATININE 1.3 mg/dL H 0.7-1.2 UREA NITROGEN [...] and tobacco- related health factors from the [place] facility where the Encounter took place. Current Smoking Status This section includes the most current smoking, or tobacco-related health factor, from the [place] facility where the Encounter took place. Date/Time Current Smoking Status Comment Faith ortiz Sep 10, 2023 03:30 PM VA-TOBACCO FORMER USER [facility] Tobacco Use History This section includes a history of the smoking, or tobacco-related health factors, that were collected on or before the date of the Encounter. The data comes from the [place] facility where the Encounter took place. Date/Time Smoking Status/Tobacco Use Comment F acility Sep 10, 2023 03:30 PM VA-TOBACCO QUIT [address] [facility] Jun 13, 2020 10:00 AM VA-TOBACCO FORMER USER [facility] Jun 13, 2020 10:00 AM VA-TOBACCO QUIT [address] [facility] May 20, 2019 12:18 PM VA-TOBACCO FORMER USER [facility] May 20, 2019 12:18 PM VA-TOBACCO QUIT [address] [facility] Jul 30, 2018 08:31 AM VA-TOBACCO FORMER USER [facility] Jul 30, 2018 08:31 AM [place]-TOBACCO QUIT [address] [facility] Aug 25, 2017 08:04 AM FORMER TOBACCO USER 7Y OR GREATE R [facility] Nov 08, 2016 08:12 AM FORMER TOBACCO USER 7Y OR GREATE R [facility] Nov 29, 2015 12:46 PM FORMER TOBACCO USER 7Y OR GREATE R [facility] February 23, 2015 12:57 PM FORMER TOBACCO USER 7Y OR GREATE R [facility] January 27, 2014 10:10 AM FORMER TOBACCO USER 7Y OR GREATE R [facility] Mar 17, 2007 09:11 AM FORMER TOBACCO USER 7Y OR GREATE R [facility] Advance Directives: All historical and current Section Date Range: From patient's date of to the date document was created. This section includes ALL of a patient's completed or amended [place] Advance and Rescinded Directives. The entries below indicate that a directive exists for the patient, but an actual copy is not included with this document. The data comes from all [facility]. Date Advance Directives Provider Source Mar 17, 2007 ADVANCE DIRECTIVE ALBERTO RODRIGUEZ [facility] Encounter Notes: All associated encounter notes This section contains the clinical notes associated to the Encounter. Date/Time Encounter Note(s) Provider Source May 14, 2024 02:19 PM PHARMACY NOTE: LOCAL TITLE: PHARMACY NON VA CARE MEDICATIONS STANDARD TITLE: PHARMACY NOTE DATE OF NOTE: MAY 14, 2024@14:19 ENTRY DATE: MAY 14, 2024@14:19:08 AUTHOR: CASH SINGLETON EXP COSIGNER: URGENCY: STATUS: COMPLETED [facility] RECEIVED electronic prescription(s) (eRX(s))from NON- VA Provider: JACKELINE ALCALA Date eRX received: MAY 14, 2024 The outside (NON-VA) provider is not authorized to write for prescription(s) through [place] pharmacy at this time. Prescription request REDIRECTED via FAX to [facility] department eRx Prescription Information: eRx Reference #: [id number] eRx Drug : ondansetron 4 mg disintegrating tablet (ZOFRAN ODT) eRx SIG : Place 1-2 Tablets (4-8 mg) on the tongue every 8 hours if needed for Nausea/Vomiting. Qty: 15 Days Supply: Refills: 0 Substitutions: YES /jeffry/ Rossy HODGSOND CLINICAL PHARMACIST Signed: 05/14/2024 14:[address] [facility]
--- OUTSIDE RECORDS SUMMARY | 2024-06-02 00:50 | XMS_ITS | Encounter Summary ---
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 ([place]) [facility] Address [address] [place] [address] Care Team Providers Care Mangle Tender Name Role Phone LUCIAN CED Primary Care [...] OF [place] [facility] (WNR) MEDICARE [facility] ([facility]) Sep 29, 2019 [id number] ONI DURAN MON PATIENT [place] [facility] ([place]NR) MEDICARE (M) [facility] ([facility]) Sep 29, 2008 [id number] ONI DURAN MON PATIENT [place] [facility] ([place]NR) MEDICARE ADVANTAGE [facility] ([facility]) Sep 29, 2008 [id number] [phone] [id number] RENEESI MON PATIENT [facility] (WNR) MEDICARE [facility] ([facility]) Sep 29, 2019 [id number] 00 ONI DURAN PATIENT [facility] (WNR) MEDICARE ADVANTAGE [facility] (WNR) Sep 29, 2010 [id number] 42 ONI DURAN PATIENT Selected Encounter This section includes the information on record at [place] for the Encounter. Date/Time Encounter Type Encounter Description Reason Pro vider Source May 18, 2024 10:16 AM Outpatient Encounter TELEPHONE/ANCILLARY IHE Encounter Template Text not used by [place] Plan of Treatment: Future Appointments (+ 6 months) and Future Tests (+/- 45 days) The Plan of Treatment section includes future care activities for the patient from all [place] [facility] This section includes future appointments and future orders which are active, pending or scheduled. Future Appointments This section includes appointments that were scheduled to occur 6 months from the date of the Encounter, up to a maximum of 20 appointments. The data comes from all [facility]. Appointment Date/Time Appointment Type Appointme nt Facility Name Sep 08, 2024 01:15 PM AMBULATORY - MEDICINE [facility] Sep 08, 2024 01:30 PM AMBULATORY MEDICINE [facility] Sep 08, 2024 02:30 PM AMBULATORY MEDICINE [facility] Active, [...] theEncounter. The data comes from all [facility]. Test Date/Time Test Type Test Details Facility Name Apr 05, 2024 12:00 AM Laboratory - Chemistry Order AST/SGOT PLASMA SP [facility] Apr 05, 2024 12:00 AM Laboratory - Chemistry Order ALT/SGPT PLASMA SP [facility] Apr 05, 2024 12:00 AM Laboratory - Chemistry Order CBC BLOOD SP ONCE [facility] Apr 05, 2024 12:00 AM Laboratory - Chemistry Order BASIC METABOLIC PANEL+MG PLASMA SP [facility] May 11, 2024 04:49 PM Laboratory - Microbiology Order CULTURE & SUSCEPTIBILITY URINE WC ONCE [facility] May 13, 2024 12:00 AM Laboratory - Chemistry Order LIPID PANEL,NON-FASTING PLASMA SP ONCE [facility] May 13, 2024 12:00 AM Laboratory - Chemistry Order BASIC METABOLIC PANEL+MG PLASMA SP ONCE [facility] May 13, 2024 12:00 AM Laboratory - Chemistry Order ALBUMIN/CREATININE RATIO URINE URINE WC ONCE [facility] Lab Results: +/- 30 days [...] Range Comment May 11, 2024 02:05 PM [facility] URINALYSIS Specimen Type: URINE No comment entered. Ordering Provider: KELLIE GONZALEZ Report Released Date/Time: May 11, 2024 12:58 PM Reporting Lab: [facility] [address] Performing Lab: [facility] [address] URINE COLOR COLORLESS SPECIFIC GRAVITY 1.010 1.003-1.035 [...] 250 NEGATIVE May 11, 2024 01:00 PM [facility] EXTRA PURPLE TUBE Specimen Type: BLOOD No comment entered. Ordering Provider: KELLIE GONZALEZ Report Released Date/Time: May 11, 2024 01:11 PM Reporting Lab: [facility] [address] Performing Lab: [facility] [address] EXTRA PURPLE TUBE RECEIVED May 11, 2024 01:00 PM [facility] EXTRA BLUE TUBE Specimen Type: PLASMA No comment entered. Ordering Provider: KELLIE GONZALEZ Report Released Date/Time: May 11, 2024 01:11 PM Reporting Lab: [facility] [address] Performing Lab: [facility] [address] EXTRA BLUE TUBE RECEIVED May 11, 2024 01:00 PM [facility] EXTRA GOLD GEL TUBE Specimen Type: SERUM No comment entered. Ordering Provider: KELLIE GONZALEZ Report Released Date/Time: May 11, 2024 01:11 PM Reporting Lab: [facility] [address] Performing Lab: [facility] [address] EXTRA GOLD GEL TUBE RECEIVED May 11, 2024 01:00 PM [facility] PHOSPHORUS Specimen Type: PLASMA No comment entered. Ordering Provider: KELLIE GONZALEZ Report Released Date/Time: May 11, 2024 12:58 PM Reporting Lab: [facility] [address] Performing Lab: [facility] [address] PHOSPHORUS 3.6 mg/dL 2.3-4.3 May 11, 2024 01:00 PM [facility] BASIC METABOLIC PANEL+MG Specimen Type: PLASMA No comment entered. Ordering Provider: KELLIE GONZALEZ Report Released Date/Time: May 11, 2024 12:58 PM Reporting Lab: [facility] [address] Performing Lab: [facility] [address] CREATININE 1.3 mg/dL H 0.7-1.2 UREA NITROGEN [...] 10, 2023 03:30 PM VA-TOBACCO FORMER USER [facility] Tobacco Use History This section includes a history of the smoking, or tobacco-related health factors, that were collected on or before the date of the Encounter. The data comes from the [place] facility where the Encounter took place. Date/Time Smoking Status/Tobacco Use Comment F acility Sep 10, 2023 03:30 PM VA-TOBACCO QUIT 15 YRS OR MORE [facility] Jun 13, 2020 10:00 AM VA-TOBACCO FORMER USER [facility] Jun 13, 2020 10:00 AM VA-TOBACCO QUIT 15 YRS OR MORE [facility] May 20, 2019 12:18 PM VA-TOBACCO FORMER USER [facility] May 20, 2019 12:18 PM VA-TOBACCO QUIT 15 YRS OR MORE [facility] Jul 30, 2018 08:31 AM VA-TOBACCO FORMER USER [facility] Jul 30, 2018 08:31 AM VA-TOBACCO QUIT 15 YRS OR MORE [facility] Aug 25, 2017 08:04 AM FORMER TOBACCO USER 7Y OR GREATE R [facility] Nov 08, 2016 08:12 AM FORMER TOBACCO USER 7Y OR GREATE R [facility] Nov 29, 2015 12:46 PM FORMER TOBACCO USER 7Y OR GREATE R [facility] February 23, 2015 12:57 PM FORMER TOBACCO USER 7Y OR GREATE R [facility] January 27, 2014 10:10 AM FORMER TOBACCO USER 7Y OR GREATE R [facility] Mar 17, 2007 09:11 AM FORMER TOBACCO USER 7Y OR GREATE R [facility] Advance Directives: All historical and current Section Date Range: From patient's date of to the date document was created. This section includes ALL of a patient's completed or amended [place] Advance and Rescinded Directives. The entries below indicate that a directive exists for the patient, but an actual copy is not included with this document. The data comes from all [facility]. Date Advance Directives Provider Source Mar 17, 2007 ADVANCE DIRECTIVE ALBERTO RODRIGUEZ [facility] Encounter Notes: All associated encounter notes This section contains the clinical notes associated to the Encounter. Date/Time Encounter Note(s) Provider Source May 18, 2024 10:16 AM COMMUNITY CARE HOME CARE NOTE: LOCAL TITLE: [facility] ELIGIBILITY STANDARD TITLE: COMMUNITY CARE HOME CARE NOTE DATE OF NOTE: MAY 18, 2024@10:16 ENTRY DATE: MAY 18, 2024@10:16:24 AUTHOR: CHAPIS REBOLLAR EXP COSIGNER: URGENCY: STATUS: COMPLETED Referral Source/Location: [facility] ([facility]) Home: Contract Fdc: Contact: Greg Phone Number: [place] is administratively eligible for the Community Fdc Program for: Hospice: is eligible for [place] paid senior care care if they enroll in hospice. Subacute rehab or 30 day placement with clinical review. Eligible based on: 70% service connected or higher /jeffry/ LORETTA [employer] GENERAL MANAGER HOTEL CUSTODIAN Signed: 05/18/2024 10:16 CHAPIS REBOLLAR [facility]
--- OUTSIDE RECORDS SUMMARY | 2024-06-02 00:51 | XMS_ITS | Clinical Summary ---
Author Organization [facility] Address [address] [address] Phone Care Team Providers Care Stack Matcher Name Role Phone Unavailable Primary Care Provider Unavailabl e Allergies Active Allergy Reactions Criticality Noted Date Comments Amlodipine Dizziness Medium 12/24/2021 Sulfamethoxazole W-Trimethoprim Other 02/27 Doxycycline RASH Medium 12/24/2021 Penicillins Hives 03/09/2019 Sulfa Drugs Other 03/09/2019 Medications Medication Sig Dispensed Refills Start Date End Date Status albuterol HFA (Proair HFA, Ventolin HFA) 108 (90 Base) MCG/ACT inhalation aerosol INHALE 2 PUFFS BY INHALATION EVERY 6 HOURS NEEDED FOR SHORTNESS OF BREATHSHAKE WELL (FOR IMMEDIATE RELIEF). Active atorvaSTATin (Lipitor) 80 MG tablet Take 80 mg by mouth every evening. Active budesonide-formote rol (Symbicort) 160-4.5 MCG/ACT aerosol inhaler Inhale 2 Puffs into the lungs two times a day. 06/30/2020 Active vitamin D3, cholecalciferol, 25 mcg (1000 units) tablet Take 1,000 Units by mouth every afternoon. Active clopidogrel (Plavix) 75 MG tablet Take 1 Tablet by mouth every afternoon. 04/29/2016 Active escitalopram (Lexapro) 10 MG tablet Take 10 mg by mouth every afternoon. 04/28/2018 Active insulin aspart (NovoLOG) 100 UNIT/ML pen injection Inject 10 units under the skin three times a day before meals. Also use sliding scale before meals and bedtime: 1 unit if BG between 250-300, inject 2 units if BG between 301-350, inject 3 units if between 351-400, inject 4 units if BG between 400-450, don't take more than 4 units at bedtime for diabetes. 02/22/2021 Active insulin glargine (Lantus) 100 UNIT/ML vial injection Inject 34 Units under the skin at bedtime. 02/22/2021 Active levothyroxine (Synthroid) 100 MCG tablet Take 100 mcg by mouth one time a day. 01/30/2021 Active metoprolol succinate (Toprol-XL) 25 MG 24 hour extended-release tablet Take 25 mg by mouth at bedtime. 02/22/2021 Active albuterol (Proventil, Ventolin) (5 MG/ML) 0.5% nebulizer solution Take 0.5 mL by nebulization every six hours as needed for Wheezing or Shortness of Breath. Dilute with 2.5 mL saline before nebulizing. 360 mL 3 02/26/2021 Active empagliflozin (Jardiance) 25 MG Tablet Take 25 mg by mouth one time a day. Active Semaglutide, 1 MG/DOSE, (Ozempic, 1 MG/DOSE,) 2 MG/1.5ML Solution Pen-injector Inject 0.25 mg under the skin one time a week. Active Semaglutide, 1 MG/DOSE, (Ozempic, 1 MG/DOSE,) 2 MG/1.5ML Solution Pen-injector Inject 0.5 mg under the skin one time a week. Active Semaglutide, 1 MG/DOSE, (Ozempic, 1 MG/DOSE,) 2 MG/1.5ML Solution Pen-injector Inject 1 mg under the skin one time a week. Active indomethacin (Indocin) 25 MG capsule Take 25 mg by mouth three times a day as needed for Other (gout exacerbation). Take with food or milk. Active losartan (Cozaar) 50 MG tablet Take 50 mg by mouth every morning. Active Torsemide 40 MG Tablet Take 40 mg by mouth every morning. Active traZODone (Desyrel) 50 MG tablet Take 50 mg by mouth at bedtime. Active aspirin 325 MG tablet Take 1 Tablet by mouth one time a day. 30 Tablet 3 12/25/2021 Active Active Problems Problem Noted Date Diagnosed Date Elevated troponin level 12/24/2021 Embolic stroke 12/24/2021 Chronic heart failure with p reserved ejection fraction (HFpEF) 12/24/2021 Acute on chronic heart failu re with preserved ejection fraction (HFpEF) 02/25/2021 Stage 3b chronic kidney disease 02/25/2021 Moderate asthma with acute exacerbation 02/26/20 21 Acute respiratory failure with hypoxia Essential hypertension 02/25/2021 Insulin dependent type 2 diabetes mellitus 02/25 Diabetic neuropathy 02/25/2021 Type 2 diabetes mellitus wit h hyperglycemia, with long-term current use of insulin 02/25/2021 Surgical History Surgery Date Site/Laterality Comments CATARACT [...] Brother Depression Brother Cardiovascular Disease Father of M I Depression Father Hypertension Mother Asthma Sister Asthma Son Relation Status Comments Brother Alive Father Mother Sister Alive Son Alive Social History Tobacco Use Types Packs/Day Years Used Date Smoking Tobacco: Former Cigarettes Q uit: 08/28/1976 Smokeless Tobacco: Never Alcohol Use Standard Drinks/Week Comments Yes 0 (1 standard drink = 0.6 oz pur e alcohol) rare Sex and Gender Information Value Date Recorded Sex Assigned at Not on file Gender Identity Not on file Sexual Orientation Not on file Job Start Date Occupation Industry Not on file Not on file Not on file Obstetrics History Last Filed Vital Signs Vital Sign Reading Time Taken Comments Blood Pressure 157/72 12/24/2021 4:46 PM CDT Pulse 67 12/24/2021 4:46 PM CDT Temperature 36.5 ??C (97.7 ??F) 12/24/2021 4:46 PM CD T Respiratory Rate 18 12/24/2021 4:46 PM CDT Oxygen Saturation 97% 12/24/2021 4:46 PM CDT Inhaled Oxygen Concentration - - Weight 99.2 kg (218 lb 11.1 oz) 12/24/2021 2:03 AM CDT Height 188 cm (6' 2) 12/24/2021 2:03 AM CDT Body Mass Index 28.08 12/24/2021 2:03 AM CDT Plan of Treatment Health Maintenance Due Date Last Done Comments MEDICARE AWV 1945 Pneumococcal Vaccine: 65+ yrs (Standing Order) (1 of 2 - PCV) 1949 PERTUSSIS (Standing Order) 1962 TETANUS (Standing Order) 1962 Shingrix (Zoster recombinant) vaccine (Standing Order) (1 of 2) 1993 RSV Vaccination (60+ yrs) (Abrysvo/Arexvy) (1 - 1-dose 60+ series) 2003 DIABETES HGB A1C Q6 MONTHS (Standing Order) 06/26/2022 12/24/2021, 11/07/2021, 07/30/2021, Additional history exists DIABETES MICROALBUMIN Q1 YEAR (Standing Order) 09/18/2022 10/18/2021, 05/16/2021, 04/18/2021, Additional history exists DIABETES SERUM CREATININE Q1 YEAR (Standing Order) 12/23/2022 12/23/2021, 11/07/2021, 07/30/2021, Additional history exists Influenza Vaccine Seasonal (Standing Order) (#1) 2024 HPV Vaccine (Standing Order) Aged Out No longer eligible based on patient's age to complete this topic Hepatitis B Vaccine (Standing Order) Aged Out No longer eligible based on patient's age to complete this topic Procedures Procedure Name Priority Date/Time Associated Diagnosis Comments HEMOGLOBIN A1C Routine 12/24/2021 6:12 AM CDT BASIC METABOLIC PANEL STAT 12/23/2021 11:52 PM CDT MICROALBUMIN/CREATIN INE RATIO, URINE Routine 10/18/2021 10:20 AM INFORMATION TECHNOLOGY OFFICER from Last 3 Months or Most Recently Relevant to Health Maintenance Results * (ABNORMAL) HEMOGLOBIN A1C (12/24/2021 6:12 AM CDT) Hemoglobin A1c 9.6(H) 4.0 - 5.6 % 12/24/2021 7:29 AM CDT [facility] Estimated Average Glucose 229 mg/dL 12/24/2021 7:29 AM CDT [facility] Blood BLOOD SPECIMEN / Unknown Venipuncture / Unknown 12/24/2021 6:12 AM CDT 12/24/2021 6:31 AM CDT Narrative [facility] - 12/24/2021 7:29 AM CDT HGA1C Reference Ranges ??>= 6.5 ?? Diabetes* ??5.7-6.4 ??Impaired glucose tolerance ?? <5.7 ?Normal *In the absence of unequivocal hyperglycemia, results should be confirmed by repeat testing for the diagnosis of diabetes. [place] [employer] 2018 ?? Holly Owen MD EC CHEMISTRY ORDERAB LES ABN [facility] [address] [place] [address] * (ABNORMAL) BASIC METABOLIC PANEL (12/23/2021 11:52 PM CDT) Sodium 139 134 - 143 mEq/L 12/24/2021 12:17 AM T [facility] Potassium 4.2 3.4 - 5.1 mEq/L 12/24/2021 12:17 AM T [facility] Chloride 105 99 - 110 mEq/L 12/24/2021 12:17 AM T [facility] Carbon Dioxide 20 19 - 29 mEq/L 12/24/2021 12:17 AM [facility] Anion Gap 14.0 3.0 - 15.0 mEq/L 12/24/2021 12:17 AM T [facility] Blood Urea Nitrogen 36(H) 5 - 24 mg/dL 12/24/2021 12:17 AM T [facility] Creatinine 1.58(H) 0.70 - 1.20 mg/dL 12/24/2021 12:17 AM T [facility] Glomerular Filtration Rate 43(L) >60 mL/min/1. 73 m*2 12/24/2021 12:17 AM [facility] Comment:Complications of CKD and risk of cardiovascular disease increase when GFR is below 60ml.min/1.73m2. A persistently reduced GFR is a specific indication of Chronic Kidney Disease. The eGFR calculation has not been validated in patients >70yrs. Calcium 9.3 8.4 - 10.5 mg/dL 12/24/2021 12:17 AM CDT [facility] Glucose 113(H) 70 - 99 mg/dL 12/24/2021 12:17 AM CDT [facility] Blood BLOOD SPECIMEN / Unknown Venipuncture / Unknown 12/23/2021 11:52 PM CDT 12/23/2021 11:57 PM CDT Narrative [facility] - 12/24/2021 12:17 AM CDT Current ADA criteria for Glucose: ?Normal: 70-99 mg/dL ?Impaired Fasting Glucose: 100-125 mg/dL ?Diabetes Mellitus: at or above 126 mg/dL The diagnosis of diabetes must be confirmed on a subsequent day by measuring Fasting Plasma Glucose, 2-hr PG or random plasma glucose (if symptoms are present). Filemon Conrad MD EC CHEMISTRY ORDERAB LES [facility] [address] [place] [address], [facility] from Last 3 Months or Most Recently Relevant to Health Maintenance Advance Directives For more information, please contact: [phone] * Full Code (Latest Code Status on File) Date Activated Date Inactivated Comments 12/24/2021 2:27 AM 12/24/2021 10:02 PM * Full Code Date Activated Date Inactivated Comments 02/25/2021 7:21 PM 02/26/2021 7:54 PM
--- OUTSIDE RECORDS SUMMARY | 2024-06-02 00:51 | XMS_ITS | Clinical Summary ---
Author Organization [facility] Address [place], [place] [address] Care Team Providers Care Crime Scene Investigator Name Role Phone Shayla Alford Primary Care Provider Allergies Active Allergy Reactions Criticality Noted Date Comments Amlodipine Dizziness Medium 06/22/2018 Reports profound dizziness. Was told by a [place] provider to never take again. Doxycycline Rash 11/08/2015 Gadobutrol GI Upset 05/16/2020 Penicillins Hives High 09/20/2011 Sulfa (Sulfonamide Antibiotics) Anaphylaxis High 05/16/2020 Sulfamethoxazole-Trimeth oprim Edema,Anaphylaxis High 12/31/2010 Liraglutide GI Upset 05/16/2020 Medications Medication Sig Dispensed Refills Start Date End Date Status insulin aspart (NOVOLOG) 100 unit/mL injectionIndicatio ns:type 2 diabetes mellitus Inject 0-12 units subcutaneous three times daily with meals. Pre sliding scale: 0-149 = give no insulin 150-199 = 2 units 200-249 = 4 units 250-299 = 6 units 300-349 = 8 units 350-399 = 10 units 400-500 - 12 units Hold for blood sugar less than 150 Notify provider for BS greater than 500 or less than 70. Prime insulin pen with 2 units prior to administration. Active atorvastatin (LIPITOR) 80 mg tabletIndications: hyperlipidemia Take 1 tablet by mouth at bedtime. Indications: excessive fat in the blood 30 tablet 04/30/20 20 Active levothyroxine (SYNTHROID) 100 mcg tablet Take 100 mcg by mouth once daily. 01/03/20 21 Active empagliflozin (JARDIANCE) 25 mg tablet Take 25 mg by mouth once daily. 05/15/20 21 Active apixaban (ELIQUIS) 5 mg tablet Take 5 mg by mouth two times daily. Active losartan (COZAAR) 25 mg tablet Take 25 mg by mouth once daily. Active insulin aspart, U-100, (NOVOLOG FLEXPEN) 100 unit/mL (3 mL) pen Inject 5 units subcutaneous three times daily before meals. Hold if blood sugar is less than 100 Active torsemide (DEMADEX) 10 mg tablet Take 10 mg by mouth once daily. Active artificial tears, peg 400 0.4%-propylene glycol 0.3%, (SYSTANE) ophthalmic Place 2 Drops into left eye every 2 hours if needed for Dry Eyes. Active lidocaine HCL (Aspercreme, lidocaine HCL,) 4 % topical cream Apply topically to affected area(s) 2 times daily if needed (Joint pain). Active bisacodyL (DULCOLAX) 10 mg suppository Insert 10 mg rectally once daily if needed for Constipation. Active omeprazole (PRILOSEC) 20 mg Delayed-Release capsule Take 20 mg by mouth once daily before a meal. Active aspirin (ECOTRIN) 81 mg enteric coated tablet Take 81 mg by mouth once daily. Active buPROPion (WELLBUTRIN XL) 150 mg Extended-Release tablet Take 150 mg by mouth once daily. Active cholecalciferol (Vitamin D) 1,000 unit tablet Take 1,000 units by mouth once daily. Active ketoconazole 2% shampoo (NIZORAL) 2 % shampoo Apply to scalp three times weekly. Lather on damp scalp, leave on for 5min, then rinse with water. Active Lantus Solostar U-100 Insulin 100 unit/mL (3 mL) pen Inject 25 units subcutaneous before bedtime. Product desired: LANTUS SOLOSTAR Active melatonin 5 mg tab tablet Take 5 mg by mouth at bedtime. Active semaglutide (Ozempic) 1 mg/dose (4 mg/3 mL) subcutaneous pen Inject 1 mg subcutaneously once every 10 days Active menthol-zinc oxide topical (CalProtect) 0.44-20.6 % ointment Apply thin layer to affected perineal areas topically twice daily. Apply additionally 3 times daily as needed. Apply topically to left sacral wound as needed during incontinence cares/toileting. Active loperamide (Anti-Diarrheal) 2 mg tablet Take 2 tablets (4mg) orally with 1st loose stool, then 1 tablet (2mg) with other loose stools. Max 8 tablets (16 mg) in 24 hrs. Active polyethylene glycoL (Miralax) 17 gram/scoop powder Mix 1 scoop in liquid then take by mouth once daily if needed for Constipation. Active ondansetron (ZOFRAN ODT) [address] 4 mg on the tongue every 6 hours if needed for Nausea/Vomiting. Active acetaminophen (TYLENOL EXTRA STRGTH) 500 mg tablet Take 1,000 mg by mouth 3 times daily if needed. Max acetaminophen dose: 4000mg in 24 hrs. Active escitalopram oxalate (LEXAPRO) 5 mg tabletIndications: Anxiety and depression Take 1 Tablet (5 mg) by mouth once daily. 05/19/20 24 Active psyllium (METAMUCIL) packetIndications: Constipation, unspecified constipation type Mix 1 Packet in liquid then take by mouth once daily. 05/18/20 24 Active albuterol HFA 90 mcg/actuation inhaler Inhale 2 Puffs by mouth 4 times daily if needed. 024 Discontinued(Ph armacist change per medication history (E-cancel not sent)) escitalopram oxalate (LEXAPRO) 10 mg tabletIndications: Anxiety and depression Take 1 tablet by mouth once daily. 30 tablet 04/22/20 18 024 Discontinued cholecalciferol (VITAMIN D3) 1,000 unit tablet Take 1,000 units by mouth once daily in the afternoon. 024 Discontinued(Ph armacist change per medication history (E-cancel not sent)) insulin glargine (Lantus U-100 Insulin) 100 unit/mL injectionIndicatio ns:type 2 diabetes mellitus Inject 28 units subcutaneous before bedtime. 10 mL 01/06/20 21 024 Discontinued(Ph armacist change per medication history (E-cancel not sent)) semaglutide (OZEMPIC) 1 mg/dose (4 mg/3 mL) pen 1 mg. 11/20/19 22 024 Discontinued(Ph armacist change per medication history (E-cancel not sent)) menthol-zinc oxide (Calmoseptine) 0.44-20.6 % packet Apply 1 Packet topically to affected area(s) two times daily. Also may use 3 times per day as needed Discontinued(Ph armacist change per medication history (E-cancel not sent)) polyethylene glycol (MIRALAX; GLYCOLAX) 17 g per packet packet Dissolve 17 gm in liquid and drink on Friday, and Friday. May use daily as needed for constipation. Discontinued(Ph armacist change per medication history (E-cancel not sent)) sennosides (Senna) 8.6 mg tablet Take 8.6 mg by mouth once daily. May also use 1 tablet daily as needed for constipation. Discontinued(Ph armacist change per medication history (E-cancel not sent)) sennosides (Senna) 8.6 mg tablet Take 8.6 mg by mouth once every other day. At bedtime Discontinued(Ph armacist change per medication history (E-cancel not sent)) acetaminophen (TYLENOL EXTRA STRGTH) 500 mg tablet Take 1,000 mg by mouth three times daily. Max acetaminophen dose: 4000mg in 24 hrs. Discontinued(Ph armacist change per medication history (E-cancel not sent)) melatonin 3 mg tablet Take 3 mg by mouth at bedtime if needed for Sleep. Discontinued(Ph armacist change per medication history (E-cancel not sent)) lidocaine 4 % topical patchIndications:C losed displaced fracture of right clavicle, unspecified part of clavicle, initial encounter Apply to intact skin to cover most painful area for max 12hr per 24hr period. 10 Patch 09/25/20 Discontinued(Ph armacist change per medication history (E-cancel not sent)) oxyCODONE (ROXICODONE) 5 mg immediate release tabletIndications: Closed displaced fracture of right clavicle, unspecified part of clavicle, initial encounter Take 1-2 Tablets (5-10 mg) by mouth every 4 hours if needed for Pain (For moderate to severe pain.). 20 Tablet 09/24/20 23 Discontinued(Ph armacist change per medication history (E-cancel not sent)) ondansetron (ZOFRAN ODT) 4 mg disintegrating tabletIndications: Nausea and vomiting, unspecified vomiting type Place 1-2 Tablets (4-8 mg) on the tongue every 8 hours if needed for Nausea/Vomiting. 15 Tablet 05/14/20 Discontinued(*M edication adjustment) cefdinir (OMNICEF) 300 mg capsule Take 300 mg by mouth two times daily. 05/11/20 Discontinued meclizine chewable (ANTIVERT) 25 mg tablet Chew 12.5 mg by mouth once daily. May take additional dose of 12.5 mg daily as needed for dizziness Discontinued(*I P Discontinued) oxyCODONE (ROXICODONE) 5 mg immediate release tablet Take 5 mg by mouth every 6 hours if needed for Pain. Discontinued(*I P Discontinued) sennosides (Senna) 8.6 mg tablet Take 17.2 mg by mouth once daily if needed for Constipation. Discontinued(*I P Discontinued) cefdinir (OMNICEF) 300 mg capsuleIndications :urinary tract infection Take 1 Capsule (300 mg) by mouth two times daily for 1 day. 05/18/20 Active Problems Patient Care Coordination No te Formatting of this note migh t be different from the original. Family is what matters most to BETH. 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 What are BETH's challenges, stressors, or barriers? fatigue Problem Noted Date Diagnosed Date Closed head injury with concussion 05/14/2024 Forehead laceration, initial encounter Vascular dementia 05/14/2024 Acute encephalopathy 05/14/2024 UTI (urinary tract infection) 05/14/2024 Spastic hemiparesis affecting dominant side 04/29 Abnormal weight loss 04/19/2024 Anemia 04/19/2024 Basal cell carcinoma of skin of right ear and external auricular canal 04/19/2024 Cerebral infarction, unspecified 04/19/2024 Dental caries on pit and fis sure surface penetrating into pulp 04/19/2024 Dental caries on smooth surface penetrating into pulp 04/19/2024 Depressive disorder 04/19/2024 Overview: Sep 01, 2018 Entered By: REJI KNAPP Comment: prescribed by [place] for depression Cerebrovascular accident (CVA) 04/19/2024 Overview: Dec 31, 2021 Entered By: CED EPSTEIN Comment: 11/2020, outside hospital.Mar 21, 2023 Entered By: CED EPSTEIN Comment: Right sided hemiparesis Encounter for general adult medical examination with abnormal findings 04/19/2024 Encounter for screening for cardiovascular disor ders 04/19/2024 Exposure to Agent [place] 04/19/2024 Exposure to potentially hazardous substance 03/30 Overview: Dec 31, 2023 Entered By: LIZBET AMANDA Comment: Entered automatically through [facility] Problem List documentation program Asthma 04/19/2024 Heart failure, unspecified 04/19/2024 Hemiplegia and hemiparesis f ollowing cerebral infarction affecting right dominant side 04/19/2024 Impacted cerumen, bilateral 04/19/2024 Infection following a proced ure, superficial incisional surgical site, initial encounter 04/19/2024 quarter doper (current) use of anticoagulants 2023 Obesity 04/19/2024 Overview: Sep 09, 2013 Entered By: EVA ALEGRIA Comment: 10 TOPIC GRAD 07-09-2012* 244.0 --> 09-17-12* 243.2 lbs Muscle weakness (generalized) 04/19/2024 Neoplasm of uncertain behavior of skin Other abnormalities of gait and mobility 024 Other benign neoplasm of skin of unspecified par t of face 04/19/2024 Other reduced mobility 04/19/2024 Paroxysmal atrial fibrillation 04/19/2024 Paroxysmal atrial fibrillation 04/19/2024 Personal history of other malignant neoplasm of skin 04/19/2024 Rosacea 04/19/2024 Tinnitus 04/19/2024 Umbilical hernia 04/19/2024 Unspecified superficial inju ry of right elbow, initial encounter 04/19/2024 Clavicle fracture 09/22/2023 Multiple rib fractures 09/22/2023 Status post fall 09/22/2023 History of stroke 09/22/2023 Hemiplegia of dominant side 07/24/2023 Right homonymous hemianopsia 02/27/2022 Chronic obstructive pulmonary disease 11/06/2021 Acute on chronic heart failu re with preserved ejection fraction (HFpEF) 02/25/2021 Acute respiratory failure with hypoxia Moderate asthma with acute exacerbation 02/26/20 21 Hypothyroidism 02/23/2021 Unsteady gait when walking 09/13/2020 Overview: Last Assessment & Plan: Recent brief events of [...] that he will follow with Dr Reid. Bilateral pleural effusion 05/17/2020 Chronic systolic (congestive) heart failure 01/2020 Heart failure 05/03/2020 Ventricular premature depolarization 05/03/2020 Coronary arteriosclerosis 04/30/2020 Diabetic peripheral neuropathy 04/29/2020 Chronic renal disease, stage III 04/29/2020 Mixed hyperlipidemia 04/29/2020 Carcinoma of bladder 04/28/2020 Diabetic retinopathy 04/28/2020 Acute on chronic diastolic CHF (congestive heart failure) 04/28/2020 Elevated troponin level 04/28/2020 HAWA (acute kidney injury) 04/28/2020 Fall, accidental 04/28/2020 Elevated lactic acid level 04/28/2020 History of falling 03/15/2020 Family history of malignant neoplasm of urinary bladder 05/21/2018 Relapsing pancreatitis 05/12/2018 Adverse effect of drug 05/12/2018 Overview: Victoza injection Diarrhea 05/12/2018 Embolic stroke 05/12/2018 Overview: Chronic lacunar infarcts of right cerebellum and hussein as far MRI of head on 09/17/2017. Fatigue 05/12/2018 Headache 05/12/2018 Nausea and vomiting 05/12/2018 Allergic rhinitis 09/11/2016 Extrinsic asthma 09/11/2016 Gout, unspecified 09/20/2011 HTN (hypertension) 09/20/2011 Benign prostatic hyperplasia with urinary obstru ction 09/20/2011 Essential hypertension 09/20/2011 Overview: Overview: Hypertension Obstructive sleep apnea syndrome 05/23/2011 Hyperlipidemia 04/19/2011 Morbid obesity 04/19/2011 Bronchitis, asthmatic 04/16/2011 Slowing of urinary stream 01/11/2011 Chronic cough 12/31/2010 Adenomatous polyp of colon 07/03/2009 Type II diabetes mellitus with complication (HC) on insulin 08/24/2008 Encounters Date Type Department Care Team Description 05/14/2024 11:28 AM CDT - 05/18/2024 1:18 PM CDT Hospital Encounter [facility] [address] [place] [address] Melquiades Campuzano MD Drevlow, Francis Recinos, Jacob Maier DO Nguyen, Camryn Waterman NP Injury of head, initial encounter (Primary Dx); On apixaban therapy; Fall, initial encounter; Nausea and vomiting, unspecified vomiting type; Laceration of forehead, initial encounter; Facial contusion, initial encounter; Abrasion of face, initial encounter; Multiple skin tears; Essential hypertension; Atrial flutter, unspecified type (HC); Confusion; Leukocytosis, unspecified type; Anemia, unspecified type; Stage 3 chronic kidney disease, unspecified whether stage 3a or 3b CKD (HC); Anxiety and depression; Constipation, unspecified constipation type; Urinary tract infection without hematuria, site unspecified Discharge Disposition: Home Health 05/14/2024 Travel 04/19/2024 9:53 AM CDT - 04/19/2024 11:54 AM CDT Emergency [facility] [address] [place] [address] Yony Zuluaga MD Eye pain, right (Primary Dx); History of stroke; Anticoagulated; Atrial fibrillation, unspecified type (HC) Discharge Disposition: Home Self Care from Last 3 Months Immunizations Name Administration Dates Next Due COVID-19 vaccine (Moderna 100mcg/0.5mL) MD COLLINSV 11/15/2020,10/18/2020 DTaP 01/31/2015 Hepatitis A (Adult) 11/15/2008 Inactivated Polio Vaccine 11/15/2008 Influenza A (H1N1), Inactivated 10/13/2009 Influenza Virus, Unspecified 07/18/2020, 06/14/2019,06/26/2017,2015,07/28/2015,08/02/2014,07/07/2013,1 ,07/30/2006 Influenza, High-dose Inactivated 07/13/2019,05/31,07/28/2015 Influenza, IIV3 (Age >=3 years) 07/28/2015 Influenza, IIV4 07/18/2020 Pneumococcal Poly,23-Valent (Pneumovax) 11/15/2008,11/14/1998 Pneumococcal conj 13-Valent (Prevnar 13) 08/11/2015,01/31/2015 Pneumococcal, Unspecified 02/04/2013,09/10/2007 TD, UNSPECIFIED 03/17/2007 Td (Age >=7 Years) 01/14/2009,08/29/2004 Td, Preservative Free (age > = 7 Years) 01/14/2009 Tdap 01/31/2015,01/27/2014 Typhoid, Unspecified 11/15/2008 Yellow Fever 11/15/2008 Zoster (Shingrix-RZV, recombinant) 08/22/2020, Zoster (Zostavax-ZVL, live) 08/27/2012, 2 Zoster, Unspecified Formulation 08/22/2020 Family History Medical [...] drink = 0.6 oz pur e alcohol) 1 per month PHQ-2 Answer Date Recorded PHQ-2 Score 0 11/28/2018 Social Connections Answer Date Recorded Frequency of Communication with Friends and Fami ly 0 09/22/2023 Financial Resource Strain Answer Date R ecorded Difficulty of Paying Living Expenses 3 09/22/2023 Difficulty of Paying Living Expenses Not on file 09/22/2023 Food Insecurity Answer Date Recorded Worried About Running Out of Food in the Last Ye ar 1 09/22/2023 Transportation Needs Answer Date Record ed Lack of Transportation (Medical) 1 09/22/2023 Housing Stability Answer Date Recorded Unable to Pay for Housing in the Last Year 1 09/22/2023 Sex and Gender Information Value Date Recorded Sex Assigned at Not on file Gender Identity Not on file Sexual Orientation Not on file Obstetrics History Last Filed Vital Signs Vital Sign Reading Time Taken Comments Blood Pressure 151/70 05/18/2024 5:35 AM CDT Pulse 53 05/18/2024 5:35 AM CDT Temperature 37 ??C (98.6 ??F) 05/18/2024 5:35 AM CDT Respiratory Rate 18 05/18/2024 5:35 AM CDT Oxygen Saturation 94% 05/18/2024 5:35 AM CDT Inhaled Oxygen Concentration - - Weight 84.3 kg (185 lb 14.4 oz) 05/18/2024 5:35 AM CDT Height 190.5 cm (6' 3) 05/14/2024 11:3 8 AM CDT Body Mass Index 23.24 05/14/2024 11:38 AM CDT Plan of Treatment Health Maintenance Due Date Last Done Comments RSV vaccine for adults or (1 - 1-dose 60+ series) 2003 Medicare Wellness for age 65+ 2008 BMI (ht and wt on same day) for age 18+ 05/14/2017 05/14/2016 Depression screening for age 12+ 01/05/2022 01/05/2021, 01/04/2021, 01/03/2021, Additional history exists COVID-19 vaccine series ( season) 2024 07/23/2023, 02/13/2022, 07/23/2021, Additional history exists Influenza for age 65+ 05/30/2024 07/18/2020 , 07/18/2020, 07/13/2019, Additional history exists Tetanus booster 01/31/2025 01/31/2015, 09/2013, 01/14/2009, Additional history exists Tdap Completed 01/31/2015, 01/27/2014 Pneumococcal series for age 65+ Completed 08/11/2015, 01/31/2015, 02/04/2013, Additional history exists Zoster (shingles) series for age 50+ Completed 08/22/2020, 06/13/2020, 08/27/2012, Additional history exists Procedures Procedure Name Priority Date/Time Associated Diagnosis Comments GLUCOSE METER Routine 05/18/2024 10:40 AM CDT XR HAND 3 VIEWS RIGHT STAT 05/18/2024 10:38 AM CDT WHITE BLOOD COUNT Early AM 05/18/2024 5:3 3 AM CDT HEMOGLOBIN Early AM 05/18/2024 5:33 AM CDT CREATININE Early AM 05/18/2024 5:33 AM CDT POTASSIUM Early AM 05/18/2024 5:33 AM CDT SODIUM Early AM 05/18/2024 5:33 AM CDT GLUCOSE METER Routine 05/17/2024 9:22 PM CDT GLUCOSE METER Routine 05/17/2024 5:29 PM CDT GLUCOSE METER Routine 05/17/2024 11:48 AM CDT GLUCOSE METER Routine 05/17/2024 7:30 AM CDT HEMOGLOBIN Early AM 05/17/2024 5:35 AM CDT CREATININE Early AM 05/17/2024 5:35 AM CDT POTASSIUM Early AM 05/17/2024 5:35 AM CDT SODIUM Early AM 05/17/2024 5:35 AM CDT GLUCOSE METER Routine 05/16/2024 9:04 PM CDT GLUCOSE METER Routine 05/16/2024 4:39 PM CDT GLUCOSE METER Routine 05/16/2024 11:54 AM CDT GLUCOSE METER Routine 05/16/2024 8:50 AM CDT MAGNESIUM Early AM 05/16/2024 6:59 AM CDT VITAMIN B12 Early AM 05/16/2024 6:59 AM CDT WHITE BLOOD COUNT Early AM 05/16/2024 6:5 9 AM CDT HEMOGLOBIN Early AM 05/16/2024 6:59 AM CDT CREATININE Early AM 05/16/2024 6:59 AM CDT POTASSIUM Early AM 05/16/2024 6:59 AM CDT SODIUM Early AM 05/16/2024 6:59 AM CDT GLUCOSE METER Routine 05/15/2024 9:22 PM CDT GLUCOSE METER Routine 05/15/2024 4:52 PM CDT POTASSIUM Timed 05/15/2024 1:31 PM CDT GLUCOSE METER Routine 05/15/2024 12:38 PM CDT GLUCOSE METER Routine 05/15/2024 8:27 AM CDT BLOOD GAS,VENOUS Early AM 05/15/2024 7:17 AM CDT HEMOGLOBIN Early AM 05/15/2024 7:17 AM CDT MAGNESIUM Early AM 05/15/2024 7:17 AM CDT CREATININE Early AM 05/15/2024 7:17 AM CDT POTASSIUM Early AM 05/15/2024 7:17 AM CDT SODIUM Early AM 05/15/2024 7:17 AM CDT AMMONIA Early AM 05/15/2024 7:17 AM CDT GLUCOSE METER Routine 05/14/2024 9:26 PM CDT URINALYSIS MICROSCOPIC Timed 05/14/2024 8:43 PM CDT URINE CULTURE Today 05/14/2024 8:43 PM CDT UA W/ SEDIMENT EXAM REFLEXED PER CRITERIA Today 05/14/2024 8:43 PM CDT GLUCOSE METER Routine 05/14/2024 6:17 PM CDT TSH AGUILAR 05/14/2024 3:34 PM CDT C-REACTIVE PROTEIN AGUILAR 05/14/2024 3: 34 PM CDT HEPATIC FUNCTION PANEL AGUILAR 05/14/2024 3:34 PM CDT MAGNESIUM STAT 05/14/2024 3:34 PM CDT BASIC METABOLIC PANEL STAT 05/14/2024 3:34 PM CDT HEMOGLOBIN A1C AGUILAR 05/14/2024 3:31 PM CDT CBC WITH AUTO DIFFERENTIAL STAT 05/14/2024 3:31 PM CDT CBC WITH AUTO DIFFERENTIAL STAT 05/14/2024 3:31 PM CDT EKG 12 LEAD STAT 05/14/2024 1:[address] SPINE CERVICAL WO STAT 05/14/2024 1:[address] HEAD BRAIN WO STAT 05/14/2024 1:19 PM CDT LACERATION REPAIR Routine 05/14/2024 12: [address] HEAD BRAIN WO STAT 04/19/2024 10:4 5 AM CDT EKG 12 LEAD STAT 04/19/2024 10:35 AM CDT CBC WITH AUTO DIFFERENTIAL STAT 04/19/2024 10:26 AM CDT C-REACTIVE PROTEIN STAT 04/19/2024 10 :26 AM CDT TSH WITH REFLEX STAT 04/19/2024 10:26 AM CDT MAGNESIUM STAT 04/19/2024 10:26 AM CDT HEPATIC FUNCTION PANEL STAT 04/19/2024 10:26 AM CDT BASIC METABOLIC PANEL STAT 04/19/2024 10:26 AM CDT PROTIME-INR STAT 04/19/2024 10:26 AM CDT CBC WITH AUTO DIFFERENTIAL STAT 04/19/2024 10:26 AM CDT from Last 3 Months Results * (ABNORMAL) GLUCOSE METER (05/18/2024 10:40 AM CDT) Only the most recent of15 resultswithin the time period is included. GLUCOSE METER 253(H) 65 - 100 mg/dL 05/18/2024 11:23 AM CDT [facility] Blood BLOOD SPECIMEN / Unknown 05/18/2024 10:40 AM CDT 05/18/2024 11:23 AM CDT Jacob Zhang DO CHEMISTRY [facility] [address] [place] [address] * XR HAND 3 VIEWS RIGHT (05/18/2024 10:38 AM CDT) Anatomical Region Laterality Modality HANDS, HAND R Digital Radiogra phy 05/18/2024 10:4 9 AM CDT Narrative 05/18/2024 10:49 AM CDT For Patients: ??As a result of the Cures Act, medical imaging exams and procedure reports are released immediately into your electronic medical record. ??You may view this report before your referring provider. ??If you have questions, please contact your health care provider. Indication: patient unable to open hand due to prior stroke Pain, trauma Technique: Three views of the right hand. Comparison: None. Findings: Suboptimal examination secondary to contraction of the hand. Osteopenia. No definite acute displaced fracture or malalignment. Moderate degenerative changes of the radiocarpal joint and of the 1st carpometacarpal joint. Impression: Suboptimal examination secondary to contraction of the hand. Osteopenia. No definite acute displaced fracture or malalignment. Moderate degenerative changes of the radiocarpal joint and of the 1st carpometacarpal joint. Dictated by Prasanna Bolanos MD @ 05/18/2024 10:49:45 AM (Electronically Signed) Procedure Note Julio Bolanos MD - 05/18/2024 For Patients: As a result of the Cures Act, medical imagingexams and procedure reports are released immediately into your electronicmedical record. You may view this report before your referring provider.If you have questions, please contact your health care provider. Indication: patient unable to open hand due to prior stroke Pain, trauma Technique: Three views of the right hand. Comparison: None. Findings: Suboptimal examination secondary to contraction of the hand. Osteopenia. No definite acute displaced fracture or malalignment. Moderate degenerative changes of the radiocarpal joint and of the 1stcarpometacarpal joint. Impression: Suboptimal examination secondary to contraction of the hand. Osteopenia. No definite acute displaced fracture or malalignment. Moderate degenerative changes of the radiocarpal joint and of the 1stcarpometacarpal joint. Dictated by Prasanna Bolanos MD @ 05/18/2024 10:49:45 AM (Electronically Signed) Jacob Zhang DO GENERAL IMAG ING * WHITE BLOOD COUNT (05/18/2024 5:33 AM CDT) Only the most recent of2 resultswithin the time period is included. WHITE BLOOD COUNT 7.2 4.5 - 11.0 thou/cu mm 05/18/2024 6:08 AM CDT [facility] Blood BLOOD SPECIMEN / Unknown Venipuncture / Unknown 05/18/2024 5:33 AM CDT 05/18/2024 6:00 AM CDT Jacob Zhang DO HEMATOLOGY [facility] [address] [place] [address] * (ABNORMAL) HEMOGLOBIN (05/18/2024 5:33 AM CDT) Only the most recent of4 resultswithin the time period is included. HEMOGLOBIN 10.7(L) 13.5 - 17.5 g/dL 05/18/2024 6:08 AM CDT [facility] MCV 91 80 - 100 fL 05/18/2024 6:08 AM CDT [facility] Blood BLOOD SPECIMEN / Unknown Venipuncture / Unknown 05/18/2024 5:33 AM CDT 05/18/2024 6:00 AM CDT Jacob Zhang DO HEMATOLOGY Performing Organization Address City/[facility] Co de Phone Number [facility] [address] [place] [address] * SODIUM (05/18/2024 5:33 AM CDT) Only the most recent of4 resultswithin the time period is included. SODIUM 139 136 - 145 mmol/L 05/18/2024 7:21 AM CDT [facility] Blood BLOOD SPECIMEN / Unknown Venipuncture / Unknown 05/18/2024 5:33 AM CDT 05/18/2024 6:00 AM CDT Jacob Zhang DO CHEMISTRY Performing Organization Address [facility] Co de Phone Number [facility] [address] [place] [address] * POTASSIUM (05/18/2024 5:33 AM CDT) Only the most recent of5 resultswithin the time period is included. POTASSIUM 4.2 3.5 - 5.1 mmol/L 05/18/2024 7:20 AM CDT [facility] Blood BLOOD SPECIMEN / Unknown Venipuncture / Unknown 05/18/2024 5:33 AM CDT 05/18/2024 6:00 AM CDT Jacob Zhang DO CHEMISTRY Performing Organization Address City/[facility] Co de Phone Number [facility] [address] [place] [address] * (ABNORMAL) CREATININE (05/18/2024 5:33 AM CDT) Only the most recent of4 resultswithin the time period is included. eGFR 42(L) >90 mL/min/1.7 3m2 05/18/2024 7:20 AM CDT [facility] Comment:As of 2021, eG FR is calculated by the CKD-EPI creatinine equation without race adjustment. ??eGFR can be influenced by muscle mass, exercise, and diet. ??The reported eGFR is an estimation only and is only applicable if the renal function is stable. CREATININE 1.65(H) 0.70 - 1.20 mg/dL 05/18/2024 7:20 AM CDT [facility] Blood BLOOD SPECIMEN / Unknown Venipuncture / Unknown 05/18/2024 5:33 AM CDT 05/18/2024 6:00 AM CDT Jacob Zhang DO CHEMISTRY Performing Organization Address City/[facility]/ZIP Co de Phone Number [facility] [address] [place] [address] * MAGNESIUM (05/16/2024 6:59 AM CDT) Only the most recent of4 resultswithin the time period is included. MAGNESIUM 2.0 1.6 - 2.4 mg/dL 05/16/2024 7:25 AM CDT [facility] Blood BLOOD SPECIMEN / Unknown Venipuncture / Unknown 05/16/2024 6:59 AM CDT 05/16/2024 7:05 AM CDT Marah Meraz RN CHEMISTRY Performing Organization Address [facility]/ZIP Co de Phone Number [facility] [address] [place] [address] * VITAMIN B12 (05/16/2024 6:59 AM CDT) VITAMIN B12 475 232 - 1,245 pg/mL 05/16/2024 1:43 PM CDT [facility] Blood BLOOD SPECIMEN / Unknown Venipuncture / Unknown 05/16/2024 6:59 AM CDT 05/16/2024 7:05 AM CDT Narrative [facility] - 05/16/2024 1:43 PM CDT Biotin supplements may cause clinically significant interference for this test assay. ??If interference is suspected, it is strongly recommended that biotin is discontinued for at least one week prior to retesting. Jacob Zhang DO CHEMISTRY [facility] [address] [place] [address], * (ABNORMAL) BLOOD GAS,VENOUS (05/15/2024 7:17 AM CDT) PH, VENOUS 7.36 7.32 - 7.43 05/15/2024 7:24 AM T [facility] PCO2, VENOUS 44 41 - 51 mmHg 05/15/2024 7:24 AM T [facility] PO2, VENOUS 45(H) 35 - 40 mmHg 05/15/2024 7:24 AM T [facility] HCO3,VENOUS 25 22 - 29 mmol/L 05/15/2024 7:24 AM T [facility] BASE EXCESS, VENOUS, POCT -0.8 -2.0 - 3.0 05/15/2024 7:[address] [facility] O2 SATURATION, VENOUS 70 70 - 75 % 05/15/2024 7:24 AM T [facility] PATIENT TEMPERATURE 37.0 Degrees C 05/15/2024 7:24 AM T [facility] Blood BLOOD SPECIMEN / Unknown Venipuncture / Unknown 05/15/2024 7:17 AM CDT 05/15/2024 7:20 AM CDT Francis Oshea DO CHEMISTRY [facility] [address] [place] [address] * (ABNORMAL) AMMONIA (05/15/2024 7:17 AM CDT) AMMONIA <10(L) 11 - 51 umol/L 05/15/2024 7:48 AM CDT [facility] Blood BLOOD SPECIMEN / Unknown Venipuncture / Unknown 05/15/2024 7:17 AM CDT 05/15/2024 7:20 AM CDT Narrative [facility] - 05/15/2024 7:48 AM CDT 1. ??Sulfasalazine and its metabolite Sulfapyridine at therapeutic concentrations may lead to falsely low results. 2. ??Temozolomide and its metabolite MTIC may lead to falsely elevated results, and its metabolite AIC may lead to falsely low results. Francis Miguelchrissy Oshea DO CHEMISTRY Performing Organization Address [facility] Co de Phone Number [facility] [address] [place] [address] * (ABNORMAL) URINALYSIS MICROSCOPIC (05/14/2024 8:43 PM CDT) RBC 3-5(A) 0-2, None Seen /HPF 05/14/2024 9:02 PM CDT [facility] WBC 3-5 0-2, 3-5, None Seen /HPF 05/14/2024 9:02 PM CDT [facility] BACTERIA Moderate(A) None Seen, Rare, Few Bacteria/ HPF 05/14/2024 9:02 PM CDT [facility] EPITHELIAL CELLS Few None Seen, Few Epi/HPF 05/14/2024 9:02 PM CDT [facility] Mucus Present 05/14/2024 9:02 PM CDT [facility] Urine URINE SPECIMEN / Unknown Non-Blood / Unknown 05/14/2024 8:43 PM CDT 05/14/2024 8:51 PM CDT Francis Oshea DO URINE Performing Organization Address City/[facility]/ZIP Co de Phone Number [facility] [address] [place] [address] * URINE CULTURE (05/14/2024 8:43 PM CDT) CULTURE No growth (<1,000 CFU/mL) 05/16/2024 2:52 PM CDT [facility] Urine URINE SPECIMEN / Unknown Non-Blood / Unknown 05/14/2024 8:43 PM CDT 05/14/2024 8:51 PM CDT Francisvon Riveralonibernice Dayo FARIAS MICROBIOLOGY [facility] [address] [place] [address], [place] * (ABNORMAL) UA W/ SEDIMENT EXAM REFLEXED PER CRITERIA (05/14/2024 8:43 PM CDT) COLOR Yellow Yellow Color 05/14/2024 8:56 PM T [facility] CLARITY Clear Clear Clarity 05/14/2024 8:[address] [facility] SPECIFIC GRAVITY,URINE 1.025 1.010, 1.015, 1.020, 1.025 05/14/2024 8:[address] [facility] PH,URINE 6.0 6.0, 7.0, 8.0, 5.5, 6.5, 7.5, 8.5 05/14/2024 8:[address] [facility] UROBILINOGEN, QUALITATIVE Normal Normal EU/dl 05/14/2024 8:[address] [facility] PROTEIN, URINE 100(A) Negative mg/dL 05/14/2024 8:[address] [facility] GLUCOSE, URINE >=1000(A) Negative mg/dL 05/14/2024 8:[address] [facility] KETONES,URINE Trace(A) Negative mg/dL 05/14/2024 8:[address] [facility] BILIRUBIN,URI NE Negative Negative 05/14/2024 8:[address] [facility] OCCULT BLOOD,URINE Trace(A) Negative 05/14/2024 8:[address] [facility] NITRITE Negative Negative 05/14/2024 8:[address] [facility] LEUKOCYTE ESTERASE Negative Negative 05/14/2024 8:[address] [facility] Urine URINE SPECIMEN / Unknown Non-Blood / Unknown 05/14/2024 8:43 PM CDT 05/14/2024 8:51 PM CDT Francis Oshea DO URINE Performing Organization Address City/[facility]/ZIP Co de Phone Number [facility] [address] [place] [address] * TSH (05/14/2024 3:34 PM CDT) TSH 3.83 0.27 - 4.20 uIU/mL 05/14/2024 5:06 PM CDT [facility] Blood BLOOD SPECIMEN / Unknown Venipuncture / Unknown 05/14/2024 3:34 PM CDT 05/14/2024 3:38 PM CDT Narrative [facility] - 05/14/2024 5:06 PM CDT In Adults, TSH values between 5.00 and 10.00 uIU/ml do not necessarily indicate the presence of Hypothyroidism. Correlation with clinical findings such as presence of goiter and/or Thyroperoxidase (TPO) Antibody may be helpful. For more information please refer to ERIN 2004; 291: [id number]. Francis Oshea DO CHEMISTRY Performing Organization Address [facility] Co de Phone Number [facility] [address] [place] [address] * (ABNORMAL) C-REACTIVE PROTEIN (05/14/2024 3:34 PM CDT) Only the most recent of2 resultswithin the time period is included. C-REACTIVE PROTEIN 0.5(H) <0.5 mg/dL 05/14/2024 5:06 PM CDT [facility] Blood BLOOD SPECIMEN / Unknown Venipuncture / Unknown 05/14/2024 3:34 PM CDT 05/14/2024 3:38 PM CDT Francis Oshea DO CHEMISTRY Performing Organization Address City/[facility]/ZIP Co de Phone Number [facility] [address] [place] [address] * (ABNORMAL) HEPATIC FUNCTION PANEL (05/14/2024 3:34 PM CDT) Only the most recent of2 resultswithin the time period is included. ALBUMIN 3.6(L) 4.0 - 4.9 g/dL 05/14/2024 5:12 PM CDT [facility] PROTEIN,TOTAL 6.7 6.0 - 8.0 g/dL 05/14/2024 5:12 PM CDT [facility] BILIRUBIN,TOTAL 0.5 0.0 - 1.2 mg/dL 05/14/2024 5:12 PM T [facility] BILIRUBIN,DIRECT 0.2 0.0 - 0.2 mg/dL 05/14/2024 5:12 PM T [facility] BILIRUBIN,INDIRE CT 0.3 0.2 - 0.8 mg/dL 05/14/2024 5:12 PM T [facility] ALK PHOSPHATASE 147(H) 40 - 129 IU/L 05/14/2024 5:12 PM T [facility] ALT (SGPT) 13 10 - 50 IU/L 05/14/2024 5:12 PM T [facility] AST (SGOT) 23 10 - 50 IU/L 05/14/2024 5:12 PM T [facility] Blood BLOOD SPECIMEN / Unknown Venipuncture / Unknown 05/14/2024 3:34 PM CDT 05/14/2024 3:38 PM CDT Francis Oshea DO CHEMISTRY [facility] [address] [place] [address] * (ABNORMAL) BASIC METABOLIC PANEL (05/14/2024 3:34 PM CDT) Only the most recent of2 resultswithin the time period is included. Pathologist [facility] SODIUM 142 136 - 145 mmol/L 05/14/2024 3:59 PM CDT [facility] POTASSIUM 4.3 3.5 - 5.1 mmol/L 05/14/2024 3:59 PM CDT [facility] CHLORIDE 105 98 - 107 mmol/L 05/14/2024 3:59 PM T [facility] CO2,TOTAL 25 22 - 29 mmol/L 05/14/2024 3:59 PM CDT [facility] ANION GAP 12 5 - 18 05/14/2024 3:59 PM T [facility] GLUCOSE 135(H) 70 - 99 mg/dL 05/14/2024 3:59 PM T [facility] CALCIUM 9.0 8.8 - 10.2 mg/dL 05/14/2024 3:59 PM T [facility] BUN 21 8 - 23 mg/dL 05/14/2024 3:59 PM T [facility] CREATININE 1.45(H) 0.70 - 1.20 mg/dL 05/14/2024 3:[address] [facility] BUN/CREAT RATIO 14 10 - 20 3:[address] [facility] eGFR 49(L) >90 mL/min/1.7 3m2 05/14/2024 3:[address] [facility] Comment:As of 2021, eG FR is calculated by the CKD-EPI creatinine equation without race adjustment. ??eGFR can be influenced by muscle mass, exercise, and diet. ??The reported eGFR is an estimation only and is only applicable if the renal function is stable. Blood BLOOD SPECIMEN / Unknown Venipuncture / Unknown 05/14/2024 3:34 PM CDT 05/14/2024 3:38 PM CDT Melquiades Campuzano MD CHEMISTRY [facility] [address] [place], [place] [id number] * (ABNORMAL) CBC WITH AUTO DIFFERENTIAL (05/14/2024 3:31 PM CDT) Only the most recent of2 resultswithin the time period is included. WHITE BLOOD COUNT 12.1(H) 4.5 - 11.0 thou/cu mm 05/14/2024 4:[address] [facility] RED BLOOD COUNT 4.21(L) 4.30 - 5.90 mil/cu mm 05/14/2024 4:[address] [facility] HEMOGLOBIN 12.0(L) 13.5 - 17.5 g/dL 05/14/2024 4:[address] [facility] HEMATOCRIT 37.3 37.0 - 53.0 % 05/14/2024 4:[address] [facility] MCV 89 80 - 100 fL 05/14/2024 4:[address] [facility] MCH 28.5 26.0 - 34.0 pg 05/14/2024 4:[address] [facility] MCHC 32.2 32.0 - 36.0 g/dL 05/14/2024 4:[address] [facility] RDW 14.8 11.5 - 15.5 % 05/14/2024 4:[address] [facility] PLATELET COUNT 258 140 - 440 thou/cu mm 05/14/2024 4:[address] [facility] MPV 9.2 6.5 - 11.0 fL 05/14/2024 4:[address] [facility] % NEUT 83.6 % 05/14/2024 4:[address] [facility] % LYMPH 8.8 % 05/14/2024 4:[address] [facility] % MONO 5.0 % 05/14/2024 4:[address] [facility] % EOS 2.1 % 05/14/2024 4:[address] [facility] % BASO 0.5 % 05/14/2024 4:[address] [facility] ABSOLUTE NEUTROPHILS 10.1(H) 1.7 - 7.0 thou/cu mm 05/14/2024 4:[address] [facility] ABSOLUTE LYMPHOCYTES 1.1 0.9 - 2.9 thou/cu mm 05/14/2024 4:[address] [facility] ABSOLUTE MONOCYTES 0.6 <0.9 thou/cu mm 05/14/2024 4:09 PM CDT [facility] ABSOLUTE EOSINOPHILS 0.3 <0.5 thou/cu mm 05/14/2024 4:09 PM CDT [facility] ABSOLUTE BASOPHILS 0.1 <0.3 thou/cu mm 05/14/2024 4:09 PM CDT [facility] Blood BLOOD SPECIMEN / Unknown Add On / Unknown 05/14/2024 3:31 PM CDT 05/14/2024 4:07 PM CDT Melquiades Campuzano MD HEMATOLOGY Performing Organization Address [facility] Co de Phone Number [facility] [address] [place] [address] * (ABNORMAL) Hemoglobin A1C (05/14/2024 3:31 PM CDT) HEMOGLOBIN A1C MONITORING (POCT) 8.3(H) <=6.4 % 05/16/2024 9:10 AM CDT [facility] Blood BLOOD SPECIMEN / Unknown Add On / Unknown 05/14/2024 3:31 PM CDT 05/14/2024 4:07 PM CDT Narrative [facility] - 05/16/2024 9:10 AM CDT ? (<=6.9%) ? Indicates good control ? (7.0% to 7.9%) ? Indicates fair control ? (>=8.0%) ? Indicates poor control ?? NOTE: ??These thresholds are guidelines and ?individual targets may vary. Falsely low levels may be seen with: Recent Transfusion, Recent Significant Blood Loss, Hemolytic Diseases, or Falsely elevated levels may be seen with: Untreated Anemias, Splenectomy ? Francis Oshea DO CHEMISTRY Performing Organization Address [facility]/ZIP Co de Phone Number [facility] [address] [place] [address], * EKG 12 LEAD (05/14/2024 1:26 PM CDT) Only the most recent of2 resultswithin the time period is included. Interpretation Atrial flutter with variable A-V block with premature ventricular or aberrantly conducted complexes Left anterior fascicular block Cannot rule out Anterior infarct , age undetermined Abnormal ECG When compared with ECG of 19-Apr-2024 10:35, Atrial flutter has replaced Atrial fibrillation QRS duration has increased Cannot rule out inferior infarct - cited on or before 04/19/2024 BEYOND NOW Ventricular Rate 69 BPM BEYOND NOW Atrial Rate 357 BPM BEYOND NOW P-R Interval ms BEYOND NOW QRS Duration 122 ms BEYOND NOW QT 446 ms BEYOND NOW QTc 477 ms BEYOND NOW P Eugene 91 degrees BEYOND NOW R Eugene -60 degrees BEYOND NOW T Eugene 44 degrees BEYOND NOW 05/14/2024 1:26 PM CDT 05/14/2024 3:46 PM CDT Melquiades Campuzano MD EKG ORD BEYOND NOW [place], [place] * CT SPINE CERVICAL WO (05/14/2024 1:20 PM CDT) Anatomical Region Laterality Modality CERVICAL SPINE, NECK, Spine Comp uted Tomography 05/14/2024 1:34 PM CDT Impressions 05/14/2024 1:34 PM CDT Unremarkable cervical spine CT. Please note that all CT scans at this facility use dose modulation, iterative reconstruction, and/or weight-based dosing when appropriate to reduce radiation dose to as low as reasonably achievable. Dictated by Franklyn Bowens MD @ 05/14/2024 1:34:33 PM (Electronically Signed) Narrative 05/14/2024 1:34 PM CDT For Patients: ??As a result of the Century Cures Act, medical imaging exams and procedure reports are released immediately into your electronic medical record. ??You may view this report before your referring provider. ??If you have questions, please contact your health care provider. INDICATION: .Fall, head injury, on apixaban TECHNIQUE: CT cervical spine without contrast. COMPARISON: Exams dating back to 2022. FINDINGS: No acute fracture. No listhesis. Bony mineralization is age appropriate. No prevertebral soft tissue hematoma or swelling. No soft tissue abnormality is identified. Multilevel spondylosis. No pathologically enlarged lymph nodes. Thyroid is normal. Lung apices are clear. Procedure Note Franklyn Bowens MD - 05/14/2024 For Patients: As a result of the Cures Act, medical imagingexams and procedure reports are released immediately into your electronicmedical record. You may view this report before your referring provider.If you have questions, please contact your health care provider. INDICATION: .Fall, head injury, on apixaban TECHNIQUE: CT cervical spine without contrast. COMPARISON: Exams dating back to 2022. FINDINGS: No acute fracture. No listhesis. Bony mineralization is age appropriate. No prevertebral soft tissue hematoma or swelling. No soft tissueabnormality is identified. Multilevel spondylosis. No pathologically enlarged lymph nodes. Thyroid is normal. Lung apices are clear. IMPRESSION: Unremarkable cervical spine CT. Please note that all CT scans at this facility use dose modulation,iterative reconstruction, and/or weight-based dosing when appropriate toreduce radiation dose to as low as reasonably achievable. Dictated by Franklyn Bowens MD @ 05/14/2024 1:34:33 PM (Electronically Signed) Melquiades Campuzano MD CT * CT HEAD BRAIN WO (05/14/2024 1:19 PM CDT) Only the most recent of2 resultswithin the time period is included. Anatomical Region Laterality Modality HEAD, BRAIN Computed Tomogra phy 05/14/2024 1:30 PM CDT Impressions 05/14/2024 1:30 PM CDT No acute intracranial process per unenhanced head CT. Please note that all CT scans at this facility use dose modulation, iterative reconstruction, and/or weight-based dosing when appropriate to reduce radiation dose to as low as reasonably achievable. Dictated by Franklyn Bowens MD @ 05/14/2024 1:30:53 PM (Electronically Signed) Narrative 05/14/2024 1:30 PM CDT For Patients: ??As a result of the Cures Act, medical imaging exams and procedure reports are released immediately into your electronic medical record. ??You may view this report before your referring provider. ??If you have questions, please contact your health care provider. INDICATION: .Fall, head injury, on apixaban TECHNIQUE: Head CT without contrast. COMPARISON: Exams dating back to 2022. FINDINGS: Periventricular areas of low attenuation, likely due to chronic small vessel ischemic changes. Generalized volume loss. Atherosclerosis. No intracranial hemorrhage. No discrete mass or mass effect. There is no midline shift. The basilar cisterns are patent. No hydrocephalus. The pena-white matter interface is otherwise preserved. No acute osseous abnormality. Bifrontal right greater than left scalp hematomas. The mastoid air cells are clear. Partial opacification of the ethmoid air cells. The visualized portions of the orbits and globes are unremarkable. Procedure Note Franklyn Bowens MD - 05/14/2024 For Patients: As a result of the Cures Act, medical imagingexams and procedure reports are released immediately into your electronicmedical record. You may view this report before your referring provider.If you have questions, please contact your health care provider. INDICATION: .Fall, head injury, on apixaban TECHNIQUE: Head CT without contrast. COMPARISON: Exams dating back to 2022. FINDINGS: Periventricular areas of low attenuation, likely due to chronic smallvessel ischemic changes. Generalized volume loss. Atherosclerosis. No intracranial hemorrhage. No discrete mass or mass effect. There is nomidline shift. The basilar cisterns are patent. No hydrocephalus. Thegray-white matter interface is otherwise preserved. No acute osseous abnormality. Bifrontal right greater than left scalphematomas. The mastoid air cells are clear. Partial opacification of theethmoid air cells. The visualized portions of the orbits and globes are unremarkable. IMPRESSION: No acute intracranial process per unenhanced head CT. Please note that all CT scans at this facility use dose modulation,iterative reconstruction, and/or weight-based dosing when appropriate toreduce radiation dose to as low as reasonably achievable. Dictated by Franklyn Bowens MD @ 05/14/2024 1:30:53 PM (Electronically Signed) Melquiades Campuzano MD CT * LACERATION REPAIR (05/14/2024 12:56 PM CDT) Narrative Vin Gray PA - 05/14/2024 12:56 PM CDT Vni Gray PA ? 05/14/2024 12:59 PM LACERATION REPAIR Date/Time: 05/14/2024 12:56 PM Performed by: Vin Gray PA Authorized by: Melquiades Campuzano MD ?? Consent: ??Consent obtained: ??Verbal ??Consent given by: ??Patient ??Risks discussed: ??Pain, poor wound healing and vascular damage [place] protocol: ??Procedure explained and questions answered to patient or proxy's satisfaction: yes ?Required blood products, implants, devices, and special equipment available: yes ?Immediately prior to procedure, a time out was called: yes ?Patient identity confirmed: ??Arm band Anesthesia: ??Anesthesia method: Anesthesia by Dr. Campuzano. Laceration details: ??Location: ??Scalp ??Scalp location: ??Frontal ??Length (cm): ??6 ??Depth (mm): ??3 Pre-procedure details: ??Preparation: ??Patient was prepped and draped in usual sterile fashion Exploration: ??Hemostasis achieved with: ??Epinephrine and direct pressure ??Wound exploration: entire depth of wound visualized ?Contaminated: no ?? Treatment: ??Area cleansed with: ??Povidone-iodine and saline ??Amount of cleaning: ??Standard ??Debridement: ??None ??Undermining: ??None ??Scar revision: no ?? Skin repair: ??Repair method: ??Sutures and Steri-Strips ??Suture size: ??5-0 ??Suture material: ??Fast-absorbing gut ??Suture technique: ??Simple interrupted ??Number of sutures: ??8 ??Number of Steri-Strips: ??6 Approximation: ??Approximation: ??Close Repair type: ??Repair type: ??Simple Post-procedure details: ??Dressing: ??Sterile dressing and bulky dressing ??Procedure completion: ??Tolerated well, no immediate complications Melquiades Campuzano MD PROCEDURE ORD * TSH WITH REFLEX (04/19/2024 10:26 AM CDT) TSH 1.96 0.27 - 4.20 uIU/mL 04/19/2024 10:55 AM CDT [facility] Blood BLOOD SPECIMEN / Unknown Venipuncture / Unknown 04/19/2024 10:26 AM CDT 04/19/2024 10:28 AM CDT [facility] - 04/19/2024 10:55 AM CDT In Adults, TSH values between 5.00 and 10.00 uIU/ml do not necessarily indicate the presence of Hypothyroidism. Correlation with clinical findings such as presence of goiter and/or Thyroperoxidase (TPO) Antibody may be helpful. For more information please refer to ERIN 2004; 291: [id number]. Yony Zuluaga MD CHEMISTRY Performing Organization Address City/State/[facility] Co de Phone Number [facility] [address] [place] [address] * (ABNORMAL) PROTIME-INR (04/19/2024 10:26 AM CDT) INR 1.3(H) <1.3 04/19/2024 10:37 AM CDT [facility] PROTIME 14.9(H) 10.3 - 12.3 sec 04/19/2024 10:37 AM CDT [facility] Blood BLOOD SPECIMEN / Unknown Venipuncture / Unknown 04/19/2024 10:26 AM CDT 04/19/2024 10:28 AM CDT [facility] - 04/19/2024 10:37 AM CDT ?Therapeutic Range 2.0-3.0 for most anticoagulated patients 2.5-3.5 or 4.0 for high risk patients The INR is only used for patients on stable oral anticoagulant therapy. It makes no significant contribution to the diagnosis or treatment of patients whose Protime is prolonged for other reasons. INR results are increased when heparin levels exceed 1.0 U/mL, which corresponds to an aPTT >125 seconds if the patient is on UFH. 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 03/17/2023 * DNR (Latest Code Status on File) Date Activated Date Inactivated Comments 05/14/2024 4:42 PM 05/18/2024 3:25 PM Question Answer Comments Code Status Discussion: Reviewed Preferences * DNR Date Activated Date Inactivated Comments 09/22/2023 12:10 AM 09/24/2023 3:19 PM Question Answer Comments Code Status Discussion: Reviewed Preferences * DNR Date Activated Date Inactivated Comments 09/21/2023 10:59 PM 09/22/2023 12:10 AM Question Answer Comments Code Status Discussion: Reviewed Preferences * Full Code Date Activated Date Inactivated Comments 11/14/2021 7:10 AM 11/14/2021 1:58 PM Question Answer Comments Code Status Discussion: Unable to Assess Preferences, Provider to review later * Full Code Date Activated Date Inactivated Comments 07/18/2021 8:05 AM 07/18/2021 4:11 PM Question Answer Comments Code Status Discussion: Not Discussed Care Teams Crime Scene Investigator Relationship Specialty Start Date End Date Shayla Alford DO [address] [place] [id number] PCP - General Internal Medicine 12/18/20
== END 2024-05-11 11:28 | disposition home or self-care (01) ==
LOC: AMB 06-02 00:41
PROVIDERS: PCP Family Medicine; Visit Provider Family Medicine
DX: M62.81 Muscle weakness (generalized) (principal)
CPT/HCPCS: A0425; A0427